=== PATIENT | male | born 1980 | race Caucasian/White ===

== ENCOUNTER 2017-10-17 15:00 | Outpatient (RCR) | payer BC, SELFPAY | END 2017-10-17 15:01 | disposition home or self-care (01) | LOC: OT 15:00 | PROVIDERS: Family Provider Family Medicine; Visit Provider Plastic Surgery | DX: S69.82XA Other specified injuries of left wrist, hand and finger(s), initial encounter (principal) | CPT/HCPCS: 97110; 97140; 97163; 97165 ==

== ENCOUNTER 2017-12-05 15:30 | Outpatient (RCR) | payer BC, SELFPAY | END 2017-12-05 15:31 | disposition home or self-care (01) | LOC: OT 15:30 | PROVIDERS: Family Provider Family Medicine; Visit Provider Plastic Surgery | DX: S69.80XA Other specified injuries of unspecified wrist, hand and finger(s), initial encounter (principal) | CPT/HCPCS: 97110; 97140; 97166 ==

== ENCOUNTER 2018-02-19 13:43 | Outpatient (RCR) | payer BC, SELFPAY | END 2018-02-19 13:44 | disposition home or self-care (01) | LOC: OT 13:43 | PROVIDERS: Family Provider Family Medicine; PCP Family Medicine; Visit Provider Plastic Surgery | DX: S69.80XA Other specified injuries of unspecified wrist, hand and finger(s), initial encounter (principal) | CPT/HCPCS: 97140; 97165; 97530 ==

== ENCOUNTER → 2018-08-10 12:48 | Outpatient (CLI) | payer BC, SELFPAY ==
--- NOTE | 2018-08-10 | CA_ITS ---
PROCEDURE: 2-D M-mode and color Doppler study INDICATIONS FOR THE TEST: Chest pain COPD Heart Murmur Tobacco Smoking Palpitations Fatigue+ Syncope Edema Hypertension Diabetes Mellitus Rheumatic Fever SOB+HALL Obesity+Hyperlipidemia Family History HD Additional History PATIENT INFORMATION HEIGHT: 71 WEIGHT:310 GENDER: Male B/P:110/65 2-D/M-MODE INTERPRETATION: 2-D MEASUREMENTS OBSERVED VALUES IN CMS Right Ventricular Dimension (RVDd) 1.9 Interventricular Septum (Thickness)(IVsd) 1.2 Left Ventricular Internal Dimensions(LVIDd) 4.7 Left Ventricular Posterior Wall (Thickness)(LVPWd) 1.0 Aortic Root 2.7 Aortic Cusp Separation 2.1 Left Atrial Dimensions (LAD) 5.0 2D 1. Left atrium is mildly enlarged, left ventricle is normal size, mild concentric left ventricular hypertrophy, visually estimated ejection fraction 55% with no regional wall motion abnormality. 2. The right atrium and right ventricle are normal size and contractility. 3. The aortic valve, mitral and tricuspid valve are grossly normal. 4. The pulmonic valve is poorly visualized. 6. No significant pericardial effusion noted. DOPPLER INTERROGATION: Doppler interrogation of the aortic, mitral and tricuspid valvular presence of mild mitral and tricuspid regurgitation, tricuspid regurgitation jet velocity is inadequate for calculation of the right ventricular systolic pressure, diastolic parameters are within normal range. CONCLUSION: 1. Mildly enlarged left atrium, normal left ventricular size, mild concentric left ventricular hypertrophy, visually estimated ejection fraction 55% with no regional wall motion abnormality, diastolic parameters are within normal range. 2. Mild mitral and tricuspid regurgitation 3. No significant pericardial effusion noted.
== END ==
PROVIDERS: PCP Family Medicine; Visit Provider Nurse Practitioner
DX: R06.02 Shortness of breath (principal); R53.83 Other fatigue; Z13.6 Encounter for screening for cardiovascular disorders
CPT/HCPCS: 93017; 93306

== ENCOUNTER → 2018-10-02 12:47 | Outpatient (CLI) | payer BC, SELFPAY ==
--- NOTE | 2018-10-02 12:59 | XR_ITS ---
XR knee LT 4V HISTORY: ITS.REASON: Lt knee pain. Weightbearing views ORDERING PHYSICIAN: Billy Norris MD PATIENT AGE: 38 years COMPARISON: None FINDINGS: No fracture or dislocation. No lytic or blastic change. Normal mineralization. Mild osteoarthritic changes are present in both the medial lateral compartment. The patellofemoral joint has an unremarkable appearance. There is a small suprapatellar effusion. IMPRESSION: Mild osteoarthritis with suprapatellar effusion
== END ==
PROVIDERS: PCP Family Medicine; Visit Provider Orthopaedic Surgery
DX: M25.562 Pain in left knee (principal)
CPT/HCPCS: 73564

== ENCOUNTER → 2018-10-08 07:50 | Outpatient (CLI) | payer BC, SELFPAY ==
--- NOTE | 2018-10-08 07:52 | MR_ITS ---
MR knee LT wo con Ordering Physician: Billy Norris MD Patient Age: 38 years: Male HISTORY: ITS.REASON: evaluate for knee pain Left knee pain. No trauma. Lateral side knee pain which is gotten worse over the past month. Some instability at the knee pain with bending and extending knee. TECHNIQUE: Multiplanar multisequence imaging 1. 5:00 PM are COMPARISON :Plain films of the left knee from 10/02/2018 FINDINGS Joint effusion most evident at suprapatellar bursa Patellofemoral joint.: The cartilage is overall fairly well maintained at posterior patella, but there are some subtle signal changes of the cartilage suggesting some mild chondromalacia or mild degenerative changes of the cartilage mid posterior patella, where it articulates with the femoral trochlear groove, as seen on axial image 8 & corresponding sagittal image 14. Overall normal patellofemoral relationships. Lateral patellofemoral articulation dominates with shallow medial aspect of the femoral trochlear groove. Medial Compartment.:. The medial meniscus appears intact. The cartilage at the medial compartment overall fairly well-maintained intact-only question some questionable scant subtle osteochondral signal variability overlying the posterior aspect of medial femoral condyle. Scant marginal osteophytes anteriorly at medial femoral condyle. Medial joint space well maintained. Lateral Compartment. The lateral meniscus overall appears intact with no definitive meniscal tear.. Note small osteochondral irregularity at Central weightbearing surface of lateral lateral femoral condyle, measuring less than 4 mm diameter & just over 3 mm depth (coronal image 18, sagittal 19, axial 17). There is slight increased signal within the overlying cartilage just at this focus associated... This reflects a small osteochondral defect. Also Slight increased joint fluid seen here posteriorly aspect the lateral meniscus well.. Early marginal osteophytes at the knee are most notable at evident about the margin of the lateral compartment. Early degenerative changes may reflect a scant chondral thinning and early chondral irregularities at lateral compartment Ligaments/Tendons: ACL thin somewhat difficult to visualize but I believe is intact. PCL appears normal The MCL is intact. The lateral collateral ligament intact. . patellar tendon intact. The quadriceps tendon intact. --------- IMPRESSION: 1. Moderate joint effusion most evident suprapatella bursa. 2.. Early degenerative left knee, most notable lateral compartment followed by the patellofemoral joint: 3. Lateral compartment., ... Early marginal osteophytes, most evident at lateral compartment ...*Small focal osteochondral defect/ irregularity at mid weightbearing surface lateral femoral condyle. 3. Patellofemoral joint Suggestion of some subtle chondral thinning and chondral signal irregularities mid patellofemoral joint. . 4.... ACL thin difficult to visualize but I believe is most likely is intact.
== END ==
PROVIDERS: PCP Family Medicine; Visit Provider Orthopaedic Surgery
DX: M25.562 Pain in left knee (principal); G89.29 Other chronic pain
CPT/HCPCS: 73721

== ENCOUNTER → 2020-03-03 17:22 | Outpatient (CLI) | payer BC, SELFPAY ==
[2020-03-03 22:57] LABS: Motility Quality Good Progression (Mod-Rapid); PH,Semen 8.5 (7.3-8.3); Semen Viscosity Watery (Normal); Sperm Motility 55 % (50-90); WBCs,Semen Negative
[2020-03-03 22:58] LABS: 3Hr Motility Quality Moderate Progression (Mod-Rapid); 3Hr Sperm Motility 40 % (50-60); Sperm Count 146 mil/mm3 (20-160); Sperm Morphology Normal (Normal)
== END ==
PROVIDERS: Visit Provider Urology
DX: N46.9 Male infertility, unspecified (principal)
CPT/HCPCS: 89320

== ENCOUNTER 2020-07-30 20:54 | Emergency (ER) | payer OTHER, BC, SELFPAY ==
[2020-07-30 20:55] VITALS: BP 139/93; PULSE 90; RESP 14; TEMP 36.7; O2SAT 98; BMI 45.8
--- NOTE | 2020-07-30 21:24 | HMH.EDUTC ---
[facility] [place] Clinical Impression: Laceration of right index finger Qualifiers: Encounter type: initial encounter Damage to nail status: without damage Foreign body presence: without foreign body Qualified Code(s): S61.210A - Laceration without foreign body of right index finger without damage to nail, initial encounter Disposition: Home, Self-Care Condition on Discharge: Good Instructions: How to Care for a Laceration After Repair, DI for Laceration Repair Additional Instructions: Keep the wound clean and dry. Keep a dressing on it if you are going to be getting it dirty. Watch the for signs of infection, such as redness, swelling, drainage, fever. etc. Take tylenol or ibuprofen for pain. Follow up with your regular doctor. Return in 10 days to have the sutures removed. GO TO THE ER FOR ANY WORSENING SYMPTOMS OR CONCERNS. Prescriptions: cephALEXin [cephALEXin 500mg capsule*] 500 mg PO Q6H 7 Days #28 cap Transmission Status: Pending to [facility] Referrals: Caprice Chacon MD [Primary Care Provider] - Time of Disposition: 21:28 Medical Decision Making - Medical Records Medical records reviewed: No: I reviewed the patient's medical records. - Aries Inquiry Pt receiving controlled substance: No Vital Signs: 07/30/20 20:55 Temperature 98.1 F Temperature Source Oral Pulse Rate [Right] 90 Respiratory Rate 14 Blood Pressure [Right Arm] 139/93 H Blood Pressure Mean [Right Arm] 108 02 Sat by Pulse Oximetry 98 [facility] [place] - General Stated complaint: AER laceration to right index finger Time Seen by Provider: 07/30/20 20:55 Description of Symptoms (Recalled from Triage Doc. 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 The rack cut the top of his right index finger. He had trouble getting it to stop bleeding before arrival. - Related Data Previous Rx's Medication Instructions Recorded cephALEXin [cephALEXin 500mg 500 mg PO Q6H 7 Days #28 cap 07/30/20 capsule*] Allergies Allergy/AdvReac Type Severity Reaction Status Date / Time No Known Allergies Allergy Verified 10/23/18 15:27 - Worker's Comp Is this a Worker's Comp case?: No [facility] History - Hepatitis A Screen Drug use history?: No High risk sexual behaviors?: No History of sexually transmitted infection?: No Currently employed?: No Childcare worker?: No Do you have indoor plumbing?: Yes Do you have electricity?: Yes Attestation statement:: This patient has been screened for Hepatitis A risk factors. I have reviewed the patient's past medical history: Yes Medical History: Reports:: Migraine Denies:: Cancer, Diabetes Mellitus Type 1, Diabetes Mellitus Type 2, MRSA Laterality Cases: Bilateral: Other Other Surgeries: Yes: No Previous Surgery Amputation: No - Social History Smoking Status: Never smoker Alcohol Intake: never Occupational Status: employed Family Hx:: Hypertension ROS Obtained: Yes All systems reviewed & no additional complaints - Constitutional Constitutional: Denies chills, Denies fever(s) - Integumentary/Breasts Skin/Breast: Reports as per HPI - Neurologic Neurologic: Denies tingling/numbness/burning sensations Physical Exam - General General appearance: alert, in no apparent distress - Head Head exam: atraumatic, normocephalic, normal inspection - Eye Eye exam: Present: normal appearance, PERRL, EOMI - ENT ENT exam: Present: normal exam, normal oropharynx, mucous membranes moist, TM's normal bilaterally, normal external ear exam - Neck Neck exam: Present: gavni
[2020-07-30 21:30] VITALS: BP 139/93; PULSE 90; RESP 14; TEMP 36.7; O2SAT 98
== END 2020-07-30 21:31 | disposition home or self-care (01) ==
PROVIDERS: Emergency Provider Nurse Practitioner Family; PCP Family Medicine
DX: S61.210A Laceration without foreign body of right index finger without damage to nail, initial encounter (principal); W26.8XXA Contact with other sharp object(s), not elsewhere classified, initial encounter; Y92.63 Factory as the place of occurrence of the external cause; Y99.0 Civilian activity done for income or pay
CPT/HCPCS: 12001; 99202; G0463

== ENCOUNTER 2020-09-20 15:10 | Emergency (ER) | payer BC, SELFPAY ==
[2020-09-20 15:31] VITALS: BP 125/91; PULSE 78; RESP 14; TEMP 36.4; O2SAT 96; BMI 41.8
--- NOTE | 2020-09-20 15:42 | HMH.EDUTC ---
[facility] [place] Disposition Clinical Impression: Viral syndrome, Exposure to COVID-19 virus Disposition: Home, Self-Care Condition on Discharge: Good Instructions: DI for COVID-19 (Suspected or Confirmed ), Preventing the Spread of Coronavirus Discharge Instructions Additional Instructions: Drink plenty of fluids. Take tylenol for pain or fever. Return if you begin to have difficulty breathing. Follow up with your regular doctor. GO TO THE ER FOR ANY WORSENING SYMPTOMS Prescriptions: Ondansetron [Zofran 4mg ODT] 4 mg PO Q8HP PRN #12 tab.rapdis PRN Reason: Nausea Transmission Status: Received by [facility] Benzonatate [Tessalon Perle 100mg Cap] 100 mg PO TIDP PRN #30 cap PRN Reason: Cough Transmission Status: Received by [facility] Azithromycin [Z-Skip 250mg Tab*] 250 mg PO UD DOSE PK #6 tab Transmission Status: Received by [facility] Referrals: Caprice Chacon MD [Primary Care Provider] - Forms: Work/School Release Time of Disposition: 15:45 Medical Decision Making - Medical Records Medical records reviewed: No: I reviewed the patient's medical records. - Aries Inquiry Pt receiving controlled substance: No Vital Signs: 09/20/20 15:31 09/20/20 15:54 Temperature 97.6 F 97 F L Temperature Source Tympanic Pulse Rate 77 Pulse Rate [Right] 78 Respiratory Rate 14 14 Blood Pressure 122/93 H Blood Pressure [Right Arm] 125/91 H Blood Pressure Mean [Right Arm] 102 Blood Pressure Source [Right Arm] Automatic Cuff Blood Pressure Position [Right Arm] Sitting 02 Sat by Pulse Oximetry 96 Oxygen Delivery Method Room Air - Lab Data Lab Results 09/20/20 15:33: Influenza Type A Ag Negative, Influenza Type B Ag Negative Orders (Tests/Meds): ORDERS Category Date Time Status Covid-19 Nasal PCR ([place]) Routine Lab 09/20/20 15:30 Received [facility] [place] HPI - General Stated complaint: vomiting, diarrhea, fever, headache, body aches Time Seen by Provider: 09/20/20 15:42 Mode of Arrival: Ambulatory Source of Information: Patient Limitations: No Limitations Description of Symptoms (Recalled from Triage Doc. by RN): N/V/D, body aches, and [place] HEENT Symptoms (Recalled from RN notes): Yes ([place]) Resp Symptoms (Recalled from RN notes): No Skin Symptoms (Recalled from RN notes): No MS Symptoms (Recalled from RN notes): No Functional Status (Recalled from RN notes): na - History of Present Illness Provider Complaint: He states that for the past 2 days he has had nausea, vomiting, diarrhea, body aches, fever, sore throat and a cough. - Related Data Previous Rx's Medication Instructions Recorded cephALEXin [cephALEXin 500mg 500 mg PO Q6H 7 Days #28 cap 07/30/20 capsule*] Azithromycin [Z-Skip 250mg Tab*] 250 mg PO UD DOSE PK #6 tab 09/20/20 Benzonatate [Tessalon Perle 100mg 100 mg PO TIDP PRN #30 cap 09/20/20 Cap] Ondansetron [Zofran 4mg ODT] 4 mg PO Q8HP PRN #12 tab.rapdis 09/20/20 Allergies Allergy/AdvReac Type Severity Reaction Status Date / Time No Known Allergies Allergy Verified 09/20/20 15:36 - Worker's Comp Is this a Worker's Comp case?: No [place] History - Hepatitis A Screen Drug use history?: No High risk sexual behaviors?: No History of sexually transmitted infection?: No Currently employed?: No Childcare worker?: No Do you have indoor plumbing?: Yes Do you have electricity?: Yes Attestation statement:: This patient has been screened for Hepatitis A risk factors. I have reviewed the patient's past medical history: Yes Medical History: Reports:: Migraine Denies:: Cancer, Diabetes Mellitus Type 1, Diabetes Mellitus Type 2, MRSA Laterality Cases: Bilateral: Other Other Surgeries: Yes: No Previous Surgery Amputation: No - Social History Smoking Status: Never smoker Alcohol Intake: never Occupational Status: employed Family Hx:: Hypertension ROS Obtained: Yes All systems reviewed & no additional complaints - Constitutional C
[2020-09-20 15:45] LABS: UTC Influenza A Antigen Negative (Negative); UTC Influenza B Antigen Negative (Negative)
[2020-09-20 15:54] VITALS: BP 122/93; PULSE 77; RESP 14; TEMP 36.1
== END 2020-09-20 15:57 | disposition home or self-care (01) ==
PROVIDERS: Emergency Provider Nurse Practitioner Family; PCP Family Medicine
DX: Z20.822 Contact with and (suspected) exposure to COVID-19 (principal); B34.9 Viral infection, unspecified
CPT/HCPCS: 87804; 99202; G0463; U0003

== ENCOUNTER 2021-01-05 17:52 | Emergency (ER) | payer BC, SELFPAY ==
[2021-01-05 18:30] VITALS: BP 145/103; PULSE 71; RESP 20; TEMP 36.9; O2SAT 97; BMI 43.0
--- NOTE | 2021-01-05 18:54 | XR_ITS ---
PROCEDURE INFORMATION: Exam: XR Right Foot Exam date and time: 01/05/2021 6:54 PM Age: 40 years old Clinical indication: Right; Patient HX: Pain in heel x3 weeks TECHNIQUE: Imaging protocol: XR Right foot. Views: 1 or 2 views. Total images: 3 COMPARISON: No relevant prior studies available. FINDINGS: Bones/joints: No fractures. Slight hallux valgus and small medial bunion at the 1st MTP joint. Os tibialis externum incidentally noted. Moderate plantar calcaneal spurring and mild spurring at the Achilles tendon insertion on the calcaneus. Mild Adiel deformity. No gross joint effusion. Soft tissues: Normal. IMPRESSION: 1. Moderate plantar calcaneal spurring and mild Adiel deformity. 2. No fractures or gross bony stress injuries. 3. Mild hallux valgus and bunion formation at the 1st MTP joint.
--- NOTE | 2021-01-05 19:21 | HMH.EDUTC ---
[facility] [place] Impression: Right Achilles bursitis, Right foot pain Heel spur Qualifiers: Laterality: right Qualified Code(s): M77.31 - Calcaneal spur, right foot Disposition: Home, Self-Care Condition on Discharge: Good Instructions: DI for Bursitis, DI for Foot Pain Additional Instructions: Rest the extremity, apply ice for 15 minutes as tolerated three or four times per day, Wear the iron wrap for compression, Elevate the extremity as tolerated while you are resting. Follow up with Dr. Kwong (podiatry). I put in a referral but you need to call her office and schedule an appointment. Follow up with your regular doctor. GO TO THE ER FOR ANY WORSENING SYMPTOMS Rest your foot for the next few days. Keep it elevated as much time as possible. Prescriptions: methylPREDNISolone [Medrol] 4 mg PO DIRECTED 6 Days #21 tab.ds.pk Transmission Status: Received by [facility] Referrals: Caprice Chacon MD [Primary Care Provider] - Shannon Kwong DPM [Staff Physician] - Forms: Work/School Release Time of Disposition: 19:28 Medical Decision Making - Medical Records Medical records reviewed: No: I reviewed the patient's medical records. - Aries Inquiry Pt receiving controlled substance: No Vital Signs: 01/05/21 18:30 01/05/21 19:30 Temperature 98.4 F 98.4 F Temperature Source Oral Pulse Rate 71 Pulse Rate [Right Brachial] 71 Respiratory Rate 20 20 Blood Pressure 145/103 H Blood Pressure [Right Arm] 145/103 H Blood Pressure Mean [Right Arm] 117 Blood Pressure Source [Right Arm] Automatic Cuff Blood Pressure Position [Right Arm] Sitting 02 Sat by Pulse Oximetry 97 Oxygen Delivery Method Room Air - Radiology Data #1 Image(s): Foot/Toes Image Reviewed: Yes I reviewed the patient's radiology image, Yes I have reviewed radiologist's interpretation Preliminary Findings: Abnormal, No Fracture Seen PROCEDURE INFORMATION: Exam: XR Right Foot Exam date and time: 01/05/2021 6:54 PM Age: 40 years old Clinical indication: Right; Patient HX: Pain in heel x3 weeks TECHNIQUE: Imaging protocol: XR Right foot. Views: 1 or 2 views. Total images: 3 COMPARISON: No relevant prior studies available. FINDINGS: Bones/joints: No fractures. Slight hallux valgus and small medial bunion at the 1st MTP joint. Os tibialis externum incidentally noted. Moderate plantar calcaneal spurring and mild spurring at the Achilles tendon insertion on the calcaneus. Mild Adiel deformity. No gross joint effusion. Soft tissues: Normal. IMPRESSION: 1. Moderate plantar calcaneal spurring and mild Adiel deformity. 2. No fractures or gross bony stress injuries. 3. Mild hallux valgus and bunion formation at the 1st MTP joint. [facility] [place] - General Stated complaint: Right heel pain Time Seen by Provider: 01/05/21 19:21 Mode of Arrival: Ambulatory Source of Information: Patient Limitations: No Limitations Description of Symptoms (Recalled from Triage Doc. by RN): PATIENT C/O RIGHT HEEL PAIN X 3 MONTHS HEENT Symptoms (Recalled from RN notes): No Resp Symptoms (Recalled from RN notes): No Skin Symptoms (Recalled from RN notes): No MS Symptoms (Recalled from RN notes): Yes Functional Status (Recalled from RN notes): WNL - History of Present Illness Provider Complaint: He c/o right foot pain. The pain is located on the lower part of the back of his heel. He denies any injury. - Related Data Previous Rx's Medication Instructions Recorded methylPREDNISolone [Medrol] 4 mg PO DIRECTED 6 Days #21 01/05/21 tab.ds.pk Allergies Allergy/AdvReac Type Severity Reaction Status Date / Time No Known Allergies Allergy Verified 09/20/20 15:36 - Worker's Comp Is this a Worker's Comp case?: No [facility] History - Hepatitis A Screen Drug use history?: No High risk sexual behaviors?: No History of sexually
[2021-01-05 19:30] VITALS: BP 145/103; PULSE 71; RESP 20; TEMP 36.9; O2SAT 97
== END 2021-01-05 19:39 | disposition home or self-care (01) ==
PROVIDERS: Emergency Provider Nurse Practitioner Family; PCP Family Medicine
DX: M77.31 Calcaneal spur, right foot (principal); M76.61 Achilles tendinitis, right leg
CPT/HCPCS: 73620; 99202; G0463

== ENCOUNTER 2021-05-05 12:53 | Emergency (ER) | payer BC, SELFPAY ==
[2021-05-05 14:10] VITALS: BP 138/90; PULSE 90; RESP 20; TEMP 36.8; O2SAT 96; BMI 40.8
--- NOTE | 2021-05-05 14:31 | HMH.EDUTC ---
[facility] [place] Disposition Clinical Impression: Exposure to COVID-19 virus Sinusitis Qualifiers: Sinusitis location: unspecified location Chronicity: acute Recurrence: non-recurrent Qualified Code(s): J01.90 - Acute sinusitis, unspecified Disposition: Home, Self-Care Condition on Discharge: Good Instructions: DI for Sinusitis, Sinusitis, Preventing the Spread of Coronavirus Discharge Instructions Additional Instructions: Drink plenty of fluids. Take tylenol or ibuprofen for pain or fever. Take the medications as directed. Follow up with your regular doctor. GO TO THE ER FOR ANY WORSENING SYMPTOMS Quarantine until you know the results of your covid-19 test. If it is positive, the health department should call you and give you further instructions about your length of Quarantine and other things. Notify your school or workplace of your results and follow their instructions regarding return to work/school. Prescriptions: methylPREDNISolone [Medrol] 4 mg PO DIRECTED 6 Days #21 packet Transmission Status: Pending to [facility] Benzonatate [Tessalon Perle 100mg Cap] 100 mg PO TIDP PRN #30 cap PRN Reason: Cough Transmission Status: Pending to [facility] Azithromycin [Z-Skip 250mg Tab*] 250 mg PO UD DOSE PK #6 tab Transmission Status: Pending to [facility] Referrals: Caprice Chacon MD [Primary Care Provider] - Forms: Work/School Release Time of Disposition: 14:41 Medical Decision Making - Medical Records Medical records reviewed: No: I reviewed the patient's medical records. - Aries Inquiry Pt receiving controlled substance: No Vital Signs: 05/05/21 14:10 Temperature 98.3 F Temperature Source Oral Pulse Rate [Right Brachial] 90 Respiratory Rate 20 Blood Pressure [Right Arm] 138/90 Blood Pressure Mean [Right Arm] 106 Blood Pressure Source [Right Arm] Automatic Cuff Blood Pressure Position [Right Arm] Sitting 02 Sat by Pulse Oximetry 96 Oxygen Delivery Method Room Air Orders (Tests/Meds): ORDERS Category Date Time Status Covid-19 Nasal PCR ([facility]) Routine Lab 05/05/21 14:08 Ordered [facility] [place] HPI - General Stated complaint: sore throat, body aches, cough, congestion Time Seen by Provider: 05/05/21 14:32 - History of Present Illness Provider Complaint: He states that he has been having sinus congestion and head aches over the past week. He thinks that he has a sinus infection. He has not been vaccinated against covid-19. - Related Data Previous Rx's Medication Instructions Recorded urea 39 % topical cream 1 applic TOPICAL BID 90 Days #227 g 01/19/21 diclofenac sodium 1 % topical gel 4 g TOPICAL QID PRN 30 Days #100 g 03/02/21 diclofenac sodium 75 mg 75 mg PO BID PRN 30 Days #60 tab 03/02/21 tablet,delayed release Azithromycin [Z-Skip 250mg Tab*] 250 mg PO UD DOSE PK #6 tab 05/05/21 Benzonatate [Tessalon Perle 100mg 100 mg PO TIDP PRN #30 cap 05/05/21 Cap] methylPREDNISolone [Medrol] 4 mg PO DIRECTED 6 Days #21 05/05/21 packet Allergies Allergy/AdvReac Type Severity Reaction Status Date / Time No Known Allergies Allergy Verified 03/02/21 08:16 [facility] History - Hepatitis A Screen Attestation statement:: This patient has been screened for Hepatitis A risk factors. 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 ) Fractures: Yes Comment: Left Ankle ORIF - Social History Smoking Status: Never smoker Alcohol Intake: never Occupational Status: employed Family Hx:: Hypertension ROS Obtained: Yes All systems reviewed & no additional complaints - Constitutional Constitutional: Reports as per HPI - Eyes Eyes: Denies eye discharge - ENT Ears, Nose, Mouth, and Throat: Reports as per HPI -
[2021-05-05 14:47] VITALS: BP 138/90; PULSE 90; RESP 20; TEMP 36.8; O2SAT 96
== END 2021-05-05 14:53 | disposition home or self-care (01) ==
PROVIDERS: Emergency Provider Nurse Practitioner Family; PCP Family Medicine
DX: J01.90 Acute sinusitis, unspecified (principal); Z20.822 Contact with and (suspected) exposure to COVID-19; G43.709 Chronic migraine without aura, not intractable, without status migrainosus
CPT/HCPCS: 99202; C9803; G0463; U0003; U0005

== ENCOUNTER 2021-06-21 13:10 | Emergency (ER) | payer BC, SELFPAY ==
[2021-06-21 14:41] VITALS: BP 143/103; PULSE 81; RESP 16; TEMP 36.6; O2SAT 97; BMI 39.7
--- NOTE | 2021-06-21 15:08 | HMH.EDUTC ---
[facility] [place] Disposition Clinical Impression: Psoriasis Disposition: Home, Self-Care Condition on Discharge: Good Instructions: Psoriasis, DI for Psoriasis, Betamethasone Topical Additional Instructions: Keep your skin as soft and moist as possible with a good emollient or lotion that doesn't have any strong scents in it. Don't start the oral steroids until tomorrow. Don't put the topical steroids (betamethasone dip) on your face or your groin. Betamethasone is a very strong topical steroid. It is too strong for daily use unless you are in a bad flare up like you are now. health education aide use of it can thin your skin and cause other problems, but it is the right one to use during a flare up like you're having now. Ideally, you would use it until your flare up is calmed down, then start using an over the counter steroid cream to keep it calmed down. Then, in the future when you notice your symptoms are flaring back up you can switch back to the betamethasone dip to calm it back down. Wash your hands after you have applied the betamethasone dip ointment. Or, you could wear gloves to put it on. intermediate contact with your hands will make the skin on your hands fragile and cause them to be easily injured. Follow up with your regular doctor. GO TO THE ER FOR ANY WORSENING SYMPTOMS OR CONCERNS Prescriptions: Betamethasone Dipropionate 1 applicatio TP BID 10 Days #45 gm Transmission Status: Received by [facility] dexAMETHasone [Taperdex] 1.5 mg PO DIRECTED 12 Days #1 packet Transmission Status: Received by [facility] Referrals: Caprice Chacon MD [Primary Care Provider] - Forms: Work/School Release Time of Disposition: 15:30 Medical Decision Making - Medical Records Medical records reviewed: No: I reviewed the patient's medical records. - Aries Inquiry Pt receiving controlled substance: No Vital Signs: 06/21/21 14:41 06/21/21 15:42 Temperature 97.8 F 97.8 F Temperature Source Oral Pulse Rate 81 Pulse Rate [Left] 81 Respiratory Rate 16 16 Blood Pressure 143/103 H Blood Pressure [Right Arm] 143/103 H Blood Pressure Mean [Right Arm] 116 02 Sat by Pulse Oximetry 97 Orders (Tests/Meds): ED MEDICATIONS Discontinued Medications Generic Name Dose Route Start Last Admin Trade Name Freq PRN Reason Stop Dose Admin Dexamethasone Sodium Phosphate 8 mg 06/21/21 15:16 06/21/21 15:34 Dexamethasone 4mg/Ml 1ml Vial IM 06/21/21 15:17 8 mg ONCE ONE Administration [facility] HPI - General Stated complaint: flair up sorasis Time Seen by Provider: 06/21/21 15:00 Mode of Arrival: Ambulatory Source of Information: Patient Limitations: No Limitations Description of Symptoms (Recalled from Triage Doc. by RN): pt states his psoriasis is flared up on his feet and arms. HEENT Symptoms (Recalled from RN notes): No Resp Symptoms (Recalled from RN notes): No Skin Symptoms (Recalled from RN notes): Yes MS Symptoms (Recalled from RN notes): No Functional Status (Recalled from RN notes): wnl - History of Present Illness Provider Complaint: He has a history of psoriasis that usualy flares up in the winter and just about goes away in the summer. His psoriasis started to flare up about 2 weeks ago and it has got to be very painful when he walks. The most severe areas are located on the backs of both his feet in the achiles tendon area. He walks a lot at work and he states that makes the psoriasis on his feet even worse. He also has it on his bilateral forearms. He does not have any on his face, scalp, neck or trunk. In the past he has treated it with steroid creams that were prescribed by his pcp, but he is out of those and he has no refills lest. He has been very busy and unable to get into see his pcp this time. He is not diabetic. He denies any fever or chills. He has saw 3 different field attendant in the past for this and no one has did anymore for him that to prescribed steroids and steroid creams whe
[2021-06-21 15:42] VITALS: BP 143/103; PULSE 81; RESP 16; TEMP 36.6
== END 2021-06-21 15:43 | disposition home or self-care (01) ==
PROVIDERS: Emergency Provider Nurse Practitioner Family; PCP Family Medicine
DX: L40.9 Psoriasis, unspecified (principal); G43.709 Chronic migraine without aura, not intractable, without status migrainosus
CPT/HCPCS: 96372; 99202; G0463

== ENCOUNTER 2021-08-03 09:51 | Emergency (ER) | payer BC, SELFPAY ==
[2021-08-03 10:00] VITALS: BP 128/77; PULSE 106; RESP 16; TEMP 37.4; O2SAT 99; BMI 47.1
--- NOTE | 2021-08-03 10:26 | HMH.EDUTC ---
[facility] [place] Clinical Impression: Viral syndrome, Exposure to COVID-19 virus Pharyngitis Qualifiers: Pharyngitis/tonsillitis etiology: unspecified etiology Qualified Code(s): J02.9 - Acute pharyngitis, unspecified Disposition: Home, Self-Care Condition on Discharge: Good Instructions: DI for Viral Syndrome, DI for COVID-19 (Suspected or Confirmed ), Preventing the Spread of Coronavirus Discharge Instructions Additional Instructions: Drink plenty of fluids. Take tylenol or ibuprofen for pain or fever. Take the medications as directed. Follow up with your regular doctor. GO TO THE ER FOR ANY WORSENING SYMPTOMS Quarantine until you know the results of your covid-19 test. Notify your school or workplace of your results and follow their instructions regarding return to work/school. The cough medication (promethazine dm) will make you drowsy, so don't drive or operate heavy machinery after taking it. Prescriptions: Promethazine/Dextromethorphan [Promethazine-Dm Syrup] 5 ml PO Q6HP PRN #240 ml PRN Reason: Cough Transmission Status: Received by [facility] methylPREDNISolone [Medrol] 4 mg PO DIRECTED 6 Days #21 packet Transmission Status: Received by [facility] Azithromycin [Z-Skip 250mg Tab*] 250 mg PO UD DOSE PK #6 tab Transmission Status: Received by [facility] Referrals: Caprice Chacon MD [Primary Care Provider] - Forms: Work/School Release Time of Disposition: 11:03 Medical Decision Making - Medical Records Medical records reviewed: No: I reviewed the patient's medical records. - Aries Inquiry Pt receiving controlled substance: No Vital Signs: 08/03/21 10:00 08/03/21 11:06 Temperature 99.4 F 99.4 F Temperature Source Oral Pulse Rate 106 H Pulse Rate [Right Brachial] 106 H Respiratory Rate 16 16 Blood Pressure 128/77 Blood Pressure [Right Arm] 128/77 Blood Pressure Mean [Right Arm] 94 Blood Pressure Source [Right Arm] Automatic Cuff Blood Pressure Position [Right Arm] Sitting 02 Sat by Pulse Oximetry 99 Oxygen Delivery Method Room Air - Lab Data Lab results reviewed: Yes: I reviewed the patient's lab results. Lab Results 08/03/21 10:15: Influenza Type A Ag Negative, Influenza Type B Ag Negative 08/03/21 11:01: Group A Strep Rapid Negative Orders (Tests/Meds): ED MEDICATIONS Discontinued Medications Generic Name Dose Route Start Last Admin Trade Name Kirk PRN Reason Stop Dose Admin Ketorolac Tromethamine 60 mg 08/03/21 11:10 08/03/21 11:14 Ketorolac 60mg/2ml Vial IM 08/03/21 11:11 60 mg ONCE ONE Administration Methylprednisolone Sodium Succinate 125 mg 08/03/21 11:10 08/03/21 11:14 Methylprednisolone Sod Succ 125mg Vial IM 08/03/21 11:11 125 mg ONCE ONE Administration ORDERS Category Date Time Status Covid-19 Nasal PCR ([facility]) Routine Lab 08/03/21 10:15 Received Strep Screen Confirmation Stat Micro 08/03/21 11:01 Received [facility] HPI - General Stated complaint: covid symptoms/exposure Time Seen by Provider: 08/03/21 10:26 - History of Present Illness Provider Complaint: He states that since yesterday he has had fever, chills, body aches, a dry cough, sore throat and he has felt very bad. He has been exposed to covid-19 thru his work. HE has been fully vaccinated. - Related Data Previous Rx's Medication Instructions Recorded Azithromycin [Z-Skip 250mg Tab*] 250 mg PO UD DOSE PK #6 tab 08/03/21 Promethazine/Dextromethorphan 5 ml PO Q6HP PRN #240 ml 08/03/21 [Promethazine-Dm Syrup] methylPREDNISolone [Medrol] 4 mg PO DIRECTED 6 Days #21 08/03/21 packet Allergies Allergy/AdvReac Type Severity Reaction Status Date / Time No Known Allergies Allergy Verified 05/06/21 08:12 [facility] History - Hepatitis A Screen Attestation statement:: This patient has been screened for Hepatitis A risk factors. I have reviewed the patient's past medical history: Yes Medical Hi
[2021-08-03 10:47] LABS: UTC Influenza A Antigen Negative (Negative); UTC Influenza B Antigen Negative (Negative)
[2021-08-03 11:06] VITALS: BP 128/77; PULSE 106; RESP 16; TEMP 37.4; O2SAT 99
[2021-08-03 11:28] LABS: Strep Scrn Group A (Rapid) Negative (Negative)
== END 2021-08-03 11:28 | disposition home or self-care (01) ==
PROVIDERS: Emergency Provider Nurse Practitioner Family; PCP Family Medicine
DX: U07.1 COVID-19 (principal); J02.9 Acute pharyngitis, unspecified; G43.709 Chronic migraine without aura, not intractable, without status migrainosus
CPT/HCPCS: 87430; 87804; 96372; 99202; C9803; G0463; U0003; U0005

== ENCOUNTER 2021-10-31 09:07 | Emergency (ER) | payer BC, SELFPAY ==
[2021-10-31 09:20] VITALS: BP 146/110; PULSE 78; RESP 20; TEMP 36.5; O2SAT 95; BMI 41.8
--- NOTE | 2021-10-31 09:51 | HMH.EDUTC ---
[facility] [place] Clinical Impression: Contact dermatitis Qualifiers: Contact dermatitis type: allergic Contact dermatitis trigger: unspecified trigger Qualified Code(s): L23.9 - Allergic contact dermatitis, unspecified cause Disposition: Home, Self-Care Condition on Discharge: Good Instructions: Contact Dermatitis, DI for Contact Dermatitis Additional Instructions: Try to identify and avoid contact with the offending substance. Don't start the oral steroids until tomorrow. Don't put the topical steroids (triamcinolone) on your face or your groin. Follow up with your regular doctor. GO TO THE ER FOR ANY WORSENING SYMPTOMS OR CONCERNS The vistaril will make you drowsy, so don't drive or operate heavy machinery afterwards. Prescriptions: methylPREDNISolone [Medrol] 4 mg PO DIRECTED 6 Days #21 packet Transmission Status: Received by [facility] Triamcinolone Acetonide 1 applicatio TP TIDP PRN 7 Days #1 gm PRN Reason: Itching Transmission Status: Received by [facility] hydrOXYzine pamoate [Vistaril 25mg capsule] 25 mg PO Q6H PRN #30 cap PRN Reason: Itching Transmission Status: Received by [facility] Referrals: Caprice Chacon MD [Primary Care Provider] - Time of Disposition: 10:19 Medical Decision Making - Medical Records Medical records reviewed: No: I reviewed the patient's medical records. - Aries Inquiry Pt receiving controlled substance: No Vital Signs: 10/31/21 09:20 10/31/21 10:44 Temperature 97.7 F 97.7 F Temperature Source Oral Pulse Rate 78 Pulse Rate [Left] 78 Respiratory Rate 20 20 Blood Pressure 146/110 H Blood Pressure [Right Arm] 146/110 H Blood Pressure Mean [Right Arm] 122 02 Sat by Pulse Oximetry 95 Orders (Tests/Meds): ED MEDICATIONS Discontinued Medications Generic Name Dose Route Start Last Admin Trade Name Freq PRN Reason Stop Dose Admin Methylprednisolone Sodium Succinate 125 mg 10/31/21 09:58 10/31/21 10:01 Methylprednisolone Sod Succ 125mg Vial IM 10/31/21 09:59 125 mg ONCE ONE Administration [facility] [place] HPI - General Stated complaint: rash Time Seen by Provider: 10/31/21 09:52 Mode of Arrival: Ambulatory Source of Information: Patient Limitations: No Limitations Description of Symptoms (Recalled from Triage Doc. by RN): pt states he has a rash all over his body. pt states it cooper and itches. ongoing x2 wks after a fishing trip. HEENT Symptoms (Recalled from RN notes): No Resp Symptoms (Recalled from RN notes): No Skin Symptoms (Recalled from RN notes): Yes MS Symptoms (Recalled from RN notes): No Functional Status (Recalled from RN notes): wnl - History of Present Illness Provider Complaint: He has had he has had a itchy rash for the past 7 days. He has been taking benedryl at home with not much improvement. He denies any known contact with anything that he may be allergic to. - Related Data Previous Rx's Medication Instructions Recorded Azithromycin [Z-Skip 250mg Tab*] 250 mg PO UD DOSE PK #6 tab 08/03/21 Promethazine/Dextromethorphan 5 ml PO Q6HP PRN #240 ml 08/03/21 [Promethazine-Dm Syrup] methylPREDNISolone [Medrol] 4 mg PO DIRECTED 6 Days #21 08/03/21 packet Triamcinolone Acetonide 1 applicatio TP TIDP PRN 7 Days #1 10/31/21 gm hydrOXYzine pamoate [Vistaril 25mg 25 mg PO Q6H PRN #30 cap 10/31/21 capsule] methylPREDNISolone [Medrol] 4 mg PO DIRECTED 6 Days #21 10/31/21 packet Allergies Allergy/AdvReac Type Severity Reaction Status Date / Time No Known Allergies Allergy Verified 05/06/21 08:12 - Worker's Comp Is this a Worker's Comp case?: No [facility] History - Hepatitis A Screen Drug use history?: No High risk sexual behaviors?: No History of sexually transmitted infection?: No Currently employed?: No Childcare worker?: No Do you have indoor plumbing?: Yes Do you have electricity?: Yes Attestation statement:: This patient has been screened for Hepatitis A ri
[2021-10-31 10:44] VITALS: BP 146/110; PULSE 78; RESP 20; TEMP 36.5
== END 2021-10-31 10:44 | disposition home or self-care (01) ==
PROVIDERS: Emergency Provider Nurse Practitioner Family; PCP Family Medicine
DX: L23.9 Allergic contact dermatitis, unspecified cause (principal); G43.709 Chronic migraine without aura, not intractable, without status migrainosus
CPT/HCPCS: 96372; 99212; G0463

== ENCOUNTER → 2021-11-12 13:02 | Outpatient (CLI) | payer BC, SELFPAY ==
--- NOTE | 2021-11-12 13:02 | MR_ITS ---
FINAL REPORT CLINICAL HISTORY: . RIGHT ANKLE/ CALCANEOUS PAIN X'S 1 YEAR. NKI. PAIN IN POSTERIOR SIDE OF ANKLE. FINDINGS: Multiplanar and multisequence imaging of the right ankle was obtained without intravenous contrast. BONES/JOINT: There is bone marrow edema in the posterior calcaneus at the insertion of the Achilles tendon, likely reactive. Remaining bone marrow signal intensity is normal. There is no edema, contusion or pathologic marrow replacement. The cartilage of the talar dome is intact. There is no evidence of osteochondritis dissecans of the talar dome. LIGAMENTS: The anterior talofibular ligament, posterior talofibular ligament and calcaneofibular ligament are intact. The tibiofibular ligaments are intact. The deltoid and spring ligaments are within normal limits. TENDONS: There is thickening of the distal Achilles tendon with a very small insertional tear. No full-thickness tear is identified. The medial tendons are within normal limits. The peroneus longus and brevis tendons are within normal limits. There is no evidence of peroneus brevis split tear. The extensor tendons are within normal limits. OTHER SOFT TISSUES: There is no joint effusion. Signal intensity within the sinus tarsi is preserved. There is thickening of the plantar fascia. Remaining soft tissues are without acute abnormality. There are no additional areas of abnormal signal intensity. There are no masses or abnormal fluid collections. IMPRESSION: Achilles tendinosis with insertional tear and reactive edema in the calcaneus. No full-thickness tear identified. Reviewed, Interpreted and Dictated by Fátima Camilo MD Transcribed by Gwen Gonzalez Authenticated by Fátima Camilo MD on 11/12/2021 04:30:[address] [facility]
== END ==
LOC: RAD 13:02
PROVIDERS: PCP Family Medicine; Visit Provider Orthopaedic Surgery
DX: M25.571 Pain in right ankle and joints of right foot (principal)
CPT/HCPCS: 73721

== ENCOUNTER 2021-12-11 09:01 | Emergency (ER) | payer BC, SELFPAY ==
--- NOTE | 2021-12-11 09:22 | HMH.EDUTC ---
[facility] [place] Disposition Clinical Impression: Upper respiratory infection Qualifiers: URI type: unspecified viral URI Qualified Code(s): J06.9 - Acute upper respiratory infection, unspecified Disposition: Home, Self-Care Condition on Discharge: Good Instructions: DI for COVID-19 (Suspected or Confirmed ) Additional Instructions: Strep and flu are negative. COVID19 test pending, should be available later today. Prescriptions: Guaifenesin/Dextromethorphan [Mucinex Dm ER 1,200-60 mg Tab] 1 tab PO BID 10 Days #20 tab Transmission Status: Pending to [facility] predniSONE [Prednisone 20mg Tab] 20 mg PO BID 5 Days #10 tab Transmission Status: Pending to [facility] Referrals: Caprice Chacon MD [Primary Care Provider] - Time of Disposition: 10:02 Medical Decision Making - Aries Inquiry Pt receiving controlled substance: No Vital Signs: 12/11/21 09:25 Temperature 98.6 F Temperature Source Oral Pulse Rate [Left Radial] 78 Respiratory Rate 17 Blood Pressure [Right Arm] 127/90 Blood Pressure Mean [Right Arm] 102 02 Sat by Pulse Oximetry 95 - Lab Data Lab results reviewed: Yes: I reviewed the patient's lab results. Lab Results 12/11/21 09:19: Influenza Type A Ag Negative, Influenza Type B Ag Negative 12/11/21 09:30: Group A Strep Rapid Negative Orders (Tests/Meds): ORDERS Category Date Time Status Strep Screen Confirmation Stat Micro 12/11/21 09:30 Received [facility] [place] HPI - General Stated complaint: fever,cough,stomach upset Time Seen by Provider: 12/11/21 09:22 - History of Present Illness Provider Complaint: Patient states has had stiff neck X 1 week. Yesterday had headache, sore throat, fever. Has upset stomach. Denies ear pain. Denies nasal congestion. Denies rash. No vomiting or diarrhea. Cough is mostly non productive. States he feels like he has stuff in his chest, but cannot cough it out. Onset (ago): day(s) (1) Location: head, chest Consistency: constant Relieving factors: none Exacerbating factors: none Associated symptoms: cough, fever/chills, headaches Treatments prior to arrival: other (OTC cold meds) - Related Data Previous Rx's Medication Instructions Recorded Triamcinolone Acetonide 1 applicatio TP TIDP PRN 7 Days #1 10/31/21 gm Guaifenesin/Dextromethorphan 1 tab PO BID 10 Days #20 tab 12/11/21 [Mucinex Dm ER 1,200-60 mg Tab] predniSONE [Prednisone 20mg 20 mg PO BID 5 Days #10 tab 12/11/21 Tab] Allergies Allergy/AdvReac Type Severity Reaction Status Date / Time No Known Allergies Allergy Verified 12/11/21 09:29 [facility] History - Hepatitis A Screen Attestation statement:: This patient has been screened for Hepatitis A risk factors. 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 ) Fractures: Yes Comment: Left Ankle ORIF - Social History Smoking Status: Never smoker Alcohol Intake: never Occupational Status: employed Family Hx:: Hypertension ROS Obtained: Yes All systems reviewed & no additional complaints - Constitutional Constitutional: Reports chills, Reports fever(s), Reports headache(s), Reports malaise - ENT Ears, Nose, Mouth, and Throat: Reports sore throat - Respiratory Respiratory: Reports chest congestion, Reports cough Physical Exam - General General appearance: alert, in no apparent distress - Head Head exam: normocephalic - Eye Eye exam: Present: PERRL - ENT ENT exam: Present: TM's normal bilaterally - Expanded ENT Exam Nose exam: Absent: sinus tenderness Throat exam: Present: tonsillar erythema - Neck Neck exam: Present: normal inspection. Absent: lymphadenopathy - Chest Chest inspection: Present: normal inspection, symmetric chest wall rise
[2021-12-11 09:25] VITALS: BP 127/90; PULSE 78; RESP 17; TEMP 37; O2SAT 95; BMI 42.5
[2021-12-11 09:34] LABS: UTC Influenza A Antigen Negative (Negative); UTC Influenza B Antigen Negative (Negative)
[2021-12-11 09:56] LABS: Strep Scrn Group A (Rapid) Negative (Negative)
[2021-12-11 11:00] VITALS: BP 127/90; PULSE 78; RESP 17; TEMP 37
[2021-12-12 17:44] LABS: Adenovirus,PCR Not Detected (NotDetected); Bordetella Pertussis Not Detected (NotDetected); Chlamydophila Pneumoniae, PCR Not Detected (NotDetected); Coronavirus 229E Not Detected (NotDetected); Coronavirus NL63 Not Detected (NotDetected); Coronavirus OC43 Not Detected (NotDetected); Coronovirus HKU1,PCR Not Detected (NotDetected); Human Metapneumovirus Not Detected (NotDetected); Influenza A, PCR Not Detected (NotDetected); Influenza AH1, 2009 Not Detected (NotDetected); Influenza AH1, PCR Not Detected (NotDetected); Influenza AH3,PCR Not Detected (NotDetected); Influenza B, PCR Not Detected (NotDetected); Mycoplasma Pneumoniae, PCR Not Detected (NotDetected); Parainfluenza 1, PCR Not Detected (NotDetected); Parainfluenza 2, PCR Not Detected (NotDetected); Parainfluenza 3, PCR Not Detected (NotDetected); Parainfluenza 4, PCR Not Detected (NotDetected); Respiratory Syncytial Virus Not Detected (NotDetected); Rhinovirus/Enterovirus Not Detected (NotDetected)
[2021-12-12 19:12] LABS: Coronavirus 19, PCR Detected (NotDetected)
== END 2021-12-11 11:06 | disposition home or self-care (01) ==
PROVIDERS: Emergency Provider Physician Assistant; PCP Family Medicine
DX: J06.9 Acute upper respiratory infection, unspecified
CPT/HCPCS: 87430; 87581; 87632; 87798; 87804; 99212; C9803; G0463; U0003; U0005

== ENCOUNTER 2021-12-28 08:00 | Outpatient (RCR) | payer BC, SELFPAY ==
--- NOTE | 2021-10-22 09:05 | HMH.PTOPEV ---
PT Outpatient Evaluation Rehab PT Outpatient Evaluation Start: 10/22/21 08:26 Freq: Status: Active Protocol: Document 10/22/21 08:26 ISSAC (Rec: 10/22/21 09:05 ISSAC [id number]) Electronically Signed By Isaac Petty, PT 10/22/21 08:26 Outpatient Therapy Subjective History Subjective History Pt presents w/right achilles tendinitis and plantar fasciitis for ~1 yr. Pt reports recent cortizone injection seems to have improved right arch area pain, however, pt reports despite multiple attempts to improve right achilles area discomfort nothing has helped to date. Pt reports upon standing in the morning posterior right heel pain constant all day. Chief Complaint Pain,Stiff Symptom Type Ache,Sharp,Dull Symptoms Relieved By Rest/Positioning Symptoms Aggravated By Standing,Walking Prior Functional Limitations Standing,Walking Current Functional Limitations Standing,Walking Symptom Description Constant but Variable Level of pain today (0-10) 6 Pain scale - at its best (0-10) 5 Pain scale - at its worst (0-10) 9 Ankle/Foot Eval Gait Observation General Gait Pattern Observation Antalgic Gait Assistive Device Ambulation Assistive Device None Palpation Tenderness right Ankle/Foot Palpation Findings Tenderness Ankle/Foot Palpation Overall Comment achilles tendon insertion 3/4, plantar fascia 0-1/4 ROM Ankle/Foot Dorsiflexion w/Knee Extended +4 Active Range Motion (degrees) Ankle/Foot Plantar Flexion Active Range 4-55 of Motion (degrees) Ankle/Foot Eversion Active Range of 0-19 Motion (degrees) Ankle/Foot Inversion Active Range of 0-21 Motion (degrees) MMT Ankle Dorsiflexion Strength Grade 5 Normal Ankle Plantarflexion Strength Grade 5 Normal Foot Eversion Strength Grade 5 Normal Foot Inversion Strength Grade 5 Normal Outpatient Therapy Assessment Impairments Problems/Impairmments Palpation Tenderness,Impaired Range of Motion,Impaired Gait Pattern,Impaired Walking, Impaired Standing,Impaired Work Activities,Subjective C/O Pain,Impaired Self Care/Self Management Prognosis Rehab Potential Good Clinical Impression Consistent with Diagnosis Yes Short Term Go
== END 2021-12-28 08:05 | disposition home or self-care (01) ==
LOC: PT 08:00
PROVIDERS: PCP Family Medicine; Visit Provider Orthopaedic Surgery
DX: M76.61 Achilles tendinitis, right leg (principal); M25.571 Pain in right ankle and joints of right foot
CPT/HCPCS: 97010; 97014; 97033; 97035; 97110; 97140; 97163; 97164; G0283

== ENCOUNTER 2022-03-21 08:00 | Outpatient (RCR) | payer BC, SELFPAY ==
--- NOTE | 2022-02-16 11:37 | HMH.PTOPEV ---
PT Outpatient Evaluation Rehab PT Outpatient Evaluation Start: 02/16/22 11:11 Freq: Status: Active Protocol: Document 02/16/22 11:12 ISSAC (Rec: 02/16/22 11:37 ISSAC [id number]) Electronically Signed By Isaac Petty, PT 02/16/22 11:12 Outpatient Therapy Subjective History Subjective History Pt reports h/o right achilles tendinitis for ~1 yr. Pt reports recent PRP injection on right achilles d/t other failed treatments to date. Pt reports injection was ~3 weeks ago, 'but hasn't really shown it's helped yet'. Pt reports continued right calf/achilles pain, stiffness, and weakness. Chief Complaint Pain,Stiff,Swelling,Weakness Symptom Type Ache,Sharp,Dull,Stabbing, Burning Symptoms Relieved By Rest/Positioning Symptoms Aggravated By Standing,Physical Activity, Walking Prior Functional Limitations Standing,Walking,Stairs Current Functional Limitations Standing,Walking,Stairs Symptom Description Constant but Variable Level of pain today (0-10) 2 Pain scale - at its best (0-10) 1 Pain scale - at its worst (0-10) 5 Ankle/Foot Eval Gait Observation General Gait Pattern Observation Antalgic Gait Palpation Tenderness right Ankle/Foot Palpation Findings Tenderness Ankle/Foot Palpation Overall Comment achilles insertion 3/4 ROM Ankle/Foot Dorsiflexion w/Knee Extended +10 Active Range Motion (degrees) Ankle/Foot Plantar Flexion Active Range 10-50 of Motion (degrees) Ankle/Foot Eversion Active Range of 0-15 Motion (degrees) Ankle/Foot Inversion Active Range of 0-35 Motion (degrees) Ankle/Foot ROM Limitations Soft Tissue Tightness,Pain MMT Ankle Dorsiflexion Strength Grade 5 Normal Ankle Plantarflexion Strength Grade 3+ Fair+ Foot Eversion Strength Grade 5 Normal Foot Inversion Strength Grade 5 Normal Outpatient Therapy Assessment Impairments Problems/Impairmments Palpation Tenderness,Impaired Range of Motion,Impaired Strength,Impaired Gait Pattern ,Impaired Walking,Impaired Standing,Subjective C/O Pain, Impaired Self Care/Self Management Prognosis Rehab Potential Good Clinical Impression Consistent with Diagnosis Yes Short Term Goals Number of Weeks 4 Decreased Palpation Tenderness Yes: 1-2/4 right achill
--- NOTE | 2022-03-21 08:57 | HMH.RHREAS ---
Rehab Reassessment Rehab OP Re-assessment Start: 03/21/22 08:19 Freq: Status: Active Protocol: Document 03/21/22 08:20 ISSAC (Rec: 03/21/22 08:57 ISSAC [id number]) E-signed By Isaac Petty, PT Rehab Re-assessment Subjective Subjective Pt reports 0/10 right achilles pain this am on VAS, and reports 4-5/10 right achilles pain following ~4 hrs of standing/walking at work, feels 50-60% better overall since I eval Objective Objective Notes AROM: RIGHT ANKLE DF 0-8, PF 0 -50, INV 0-35, EVR 0-15 MMT: RIGHT ANKLE DF 5/5, PF 4- 4-/5, INV 5/5, EVR 5/5 TTP: RIGHT ACHILLES INSERTION 2/4 GAIT: WFL ON LEVEL TERRAIN Assessment Progress Assessment Progressing as Expected Assessment Notes IMPROVED STRENGTH, ROM, TTP, AND GAIT Patient goals met STG'S 12/14 LTG'S 11/14 Goals Not Met STG'S 07/16, LTG'S 09/14 Plan Plan Pt to continue w/skilled P.T. to make further improvements in right achilles/ankle strength, TTP, and ROM to allow for optimal function Frequency of Therapy 1-2x/wk Duration of therapy 3-4wks Time and Billing Re-Eval Time 12 Re-Eval Billing Units 1 PHYSICIAN CERTIFICATION: I certify the specified therapy services for Won Dennis are required, authorized, and reviewed every 30 days.
== END 2022-03-21 08:05 | disposition home or self-care (01) ==
LOC: PT 08:00
PROVIDERS: PCP Physician Assistant; Visit Provider Orthopaedic Surgery
DX: M79.671 Pain in right foot (principal)
CPT/HCPCS: 97010; 97014; 97110; 97112; 97163; 97164; G0283

== ENCOUNTER 2022-04-11 09:31 | Emergency (ER) | payer BC, SELFPAY ==
[2022-04-11 10:20] VITALS: BP 137/97; PULSE 82; RESP 18; TEMP 37; O2SAT 94; BMI 41.8
--- NOTE | 2022-04-11 10:26 | EXP.UTC ---
Discharge Plan Disposition Patient Disposition: Home, Self-Care Condition: Good Prescriptions Prescriptions: New benzonatate [benzonatate] 100 mg capsule 100 mg PO TIDP PRN (Reason: Cough) Qty: 30 0RF ondansetron 4 mg Tablet,Disintegrating 4 mg PO Q8H PRN (Reason: Nausea) Qty: 20 0RF No Action hydroxyzine HCl 10 mg tablet 10 mg PO Referrals Follow up/Referrals: Provider,Referral, MD [Primary Care Provider] - See instructions Activity Restrictions/Add. Instructions Additional Instructions/Restrictions: Drink plenty of fluids. Take tylenol or ibuprofen for pain or fever. Take the medications as directed. Follow up with your regular doctor. GO TO THE ER FOR ANY WORSENING SYMPTOMS Quarantine until you know the results of your covid-19 test. Notify your school or workplace of your results and follow their instructions regarding return to work/school. Clinical Impressions Clinical Impression: Viral syndrome, Exposure to 2019 novel coronavirus Stand Alone Forms Stand Alone Forms: Work/School Release Instructions Patient Instructions: DI for Viral Syndrome, Coronavirus Disease 2019, Preventing the Spread of Coronavirus Discharge Instructions Discharge ED Provider: Saji Reno [facility] [place], [place] General Stated complaint: diarrhea,headache,cough,body aches Time Seen by Provider: 04/11/22 10:26 History of Present Illness Provider Complaint: He states that for the past 2 days he has felt progressively worse. He is having body aches, chills, diarrhea and a dry cough. He has been exposed to covid-19 Related Data Home Medications Medication Instructions Recorded Confirmed hydroxyzine HCl 10 mg tablet 10 mg PO 04/01/22 04/01/22 Previous Rx's Medication Instructions Recorded benzonatate 100 mg capsule 100 mg PO TIDP PRN Cough #30 caps 04/11/22 ondansetron 4 mg disintegrating 4 mg PO Q8H PRN Nausea #20 tabs 04/11/22 tablet Allergies Allergy/AdvReac Type Severity Reaction Status Date / Time No Known Allergies Allergy Verified 04/01/22 09:13 [facility] [place] Medical History Migraine Family History Other Hypertension Social History Smoking Status: Never smoker alcohol intake: never current occupational status: employed Travel in the last 8 weeks: None ROS Obtained: Yes All systems reviewed & no additional complaints except as documented Constitutional Constitutional: Reports chills and Reports fever(s) Eyes Eyes: Denies eye discharge ENT Ears, Nose, Mouth, and Throat: Reports as per HPI Cardiovascular Cardiovascular: Denies chest pain Respiratory Respiratory: Denies chest congestion and Reports cough Gastrointestinal Gastrointestingal: Reports nausea; Denies abdominal pain, constipation, cramping, diarrhea or vomiting Musculoskeletal Musculoskeletal: Denies arthralgias Integumentary/Breasts Skin/Breast: Denies rash Neurologic Neurologic: Denies paresthesias Physical Exam General General appearance: alert and in no apparent distress Head Head exam: atraumatic, normocephalic and normal inspection Eye Eye exam: Present normal appearance, PERRL and EOMI ENT ENT exam: Present normal exam, normal oropharynx, mucous membranes moist, TM's normal bilaterally and normal external ear exam Neck Neck exam: Present normal inspection, full ROM and trachea midline; Absent meningismus or lymphadenopathy Chest Chest inspection: Present normal inspection and symmetric chest wall rise; Absent tenderness Respiratory Respiratory exam: Present normal lung sounds bilaterally; Absent respiratory distress Cardiovascular Cardiovascular exam: Present regular rate and normal rhythm; Absent JVD Abdominal Exam Abdominal exam: Present soft and normal bowel sounds; Absent distention, tenderness or guarding Extremities Exam Extrem
[2022-04-11 10:46] VITALS: BP 137/97; PULSE 82; RESP 18; TEMP 37; O2SAT 94
== END 2022-04-11 10:49 | disposition home or self-care (01) ==
PROVIDERS: Emergency Provider Nurse Practitioner Family
DX: R19.7 Diarrhea, unspecified (principal); M79.10 Myalgia, unspecified site; G43.909 Migraine, unspecified, not intractable, without status migrainosus; R11.0 Nausea; R05.9 Cough, unspecified; Z20.822 Contact with and (suspected) exposure to COVID-19; Z82.49 Family history of ischemic heart disease and other diseases of the circulatory system
CPT/HCPCS: 99213; C9803; G0463; U0003; U0005

== ENCOUNTER 2022-04-29 07:12 | Emergency (ER) | payer BC, SELFPAY ==
[2022-04-29] VITALS (10 sets, daily range): BP systolic 119–138; BP diastolic 63–96; PULSE 70–81; RESP 15–18; TEMP 36.8; O2SAT 93–98; BMI 41.8
--- NOTE | 2022-04-29 07:45 | XR_ITS ---
FINAL REPORT CLINICAL HISTORY: knee pain and swelling, NO INJURY FINDINGS: RIGHT KNEE Three views of the right knee reveal no evidence of fracture or dislocation. The bony alignment is normal. There are mild degenerative changes. There is no evidence of joint effusion. No localized soft tissue abnormality is identified. IMPRESSION: Mild degenerative change with no acute abnormality identified. Reviewed, Interpreted and Dictated by Won Carey III, MD Transcribed by Brittany Vasquez Authenticated and . [facility]
--- NOTE | 2022-04-29 07:46 | HMH.EDEXTP ---
Discharge Plan Disposition Patient Disposition: Home, Self-Care Condition: Good Prescriptions Prescriptions: No Action hydroxyzine HCl 10 mg tablet 10 mg PO benzonatate [benzonatate] 100 mg capsule 100 mg PO TIDP PRN (Reason: Cough) Qty: 30 0RF ondansetron 4 mg Tablet,Disintegrating 4 mg PO Q8H PRN (Reason: Nausea) Qty: 20 0RF Referrals Follow up/Referrals: Caprice Chacon MD [Primary Care Provider] - See instructions Macario Burkett MD [Staff Physician] - See instructions (Acute on chronic right knee pain, needs follow-up with primary care and possible further management. Joint aspiration on 04/29 initially unremarkable) Activity Restrictions/Add. Instructions Additional Instructions/Restrictions: Follow-up with your primary care provider regarding this visit to the emergency department and scheduling physical therapy. If you have fevers, chills, red streaking up your leg, or any other concerning symptoms, return to the ED for further evaluation, or your primary care provider. Clinical Impressions Clinical Impression: Acute knee pain Discharge ED Provider: Mason Boggs Extremity Problem HPI <Edgar Moreno MD - Last Filed: 04/29/22 07:54> General Chief complaint: Extremity Injury, Lower Stated complaint: right knee swollen, unknow origin Time Seen by Provider: 04/29/22 07:20 Mode of Arrival: Ambulatory Source of Information: Patient Limitations: No Limitations Description of Symptoms (Recalled from ER Triage Doc. by RN): Pt c/o pain in L knee pain x4 days. Pt reports no known injury. Pt reports swelling not improving with ibuprofen and ice. Non-pitting edema noted. History of Present Illness HPI Narrative: 41-year-old male presents with 4 days of right knee pain. States it is gradually getting worse he does not have any awareness of any injuries to the knee. Denies fevers chills or body aches. He has had arthritis in his knees previously and had injections but he cannot remember which knee he had steroid injections in. No history of gout states that he has a chronic Achilles injury that is plan for surgery soon as well. Pain is 5 out of 10 he used ibuprofen yesterday with minimal relief. Related Data Home Medications Medication Instructions Recorded Confirmed hydroxyzine HCl 10 mg tablet 10 mg PO 04/01/22 04/15/22 Previous Rx's Medication Instructions Recorded benzonatate 100 mg capsule 100 mg PO TIDP PRN Cough #30 caps 04/11/22 ondansetron 4 mg disintegrating 4 mg PO Q8H PRN Nausea #20 tabs 04/11/22 tablet Allergies Allergy/AdvReac Type Severity Reaction Status Date / Time No Known Allergies Allergy Verified 04/15/22 08:52 PFSH <Edgar Moreno MD - Last Filed: 04/29/22 07:54> PFSH Medical History Migraine Family History Other Hypertension Social History Smoking Status: Never smoker alcohol intake: never current occupational status: employed Travel in the last 8 weeks: None <Edgar Moreno MD - Last Filed: 04/29/22 07:54> ROS Obtained: Yes Systems reviewed as appropriate & no additional complaints except as documented Physical Exam <Edgar Moreno MD - Last Filed: 04/29/22 07:54> General General appearance: alert and in no apparent distress Head Head exam: atraumatic and normocephalic ENT ENT exam: Present mucous membranes moist Neck Neck exam: Present trachea midline Chest Chest inspection: Present symmetric chest wall rise Respiratory Respiratory exam: Absent respiratory distress Cardiovascular Cardiovascular exam: Present regular rate Expanded Lower Extremity Exam Right: Knee exam: Present tenderness and swelling; Absent ecchymosis, deformity, crepitus or erythema Neurological Exam Neurological exam: Present alert and oriented X3 Psychiatric Psychiatric exam: Divya
--- NOTE | 2022-04-29 07:54 | PC.NURSE ---
pt to radiology
[2022-04-29 08:06] LABS: Basophils # 0.1 K/mm3 (0-0.2); Basophils % 0.7 % (0.1-2.0); Eosinophils # 0.2 K/mm3 (0.0-0.4); Eosinophils % 1.9 % (0.1-12.0); Hemoglobin 16.2 g/dL (14.1-18.0); Lymphocytes # 1.5 K/mm3 (0.7-4.5); Lymphocytes % 15.6 % (10-50); Mean Corpuscular HGB Conc 33.1 g/dL (31.8-35.4); Mean Corpuscular Hemoglobin 27.8 pg (27.0-31.2); Mean Corpuscular Volume 83.8 fl (80-94); Monocytes # 0.8 K/mm3 (0.1-1.0); Monocytes % 8.2 % (1.7-9.3); Neutrophils # 7.2 K/mm3 (1.8-7.8); Neutrophils % 73.5 % (37.0-80.0); Platelet Count 269 K/mm3 (142-424); Red Blood Count 5.85 M/mm3 (4.60-6.20); Red Cell Distribution Width 13.5 % (11.5-17.5); White Blood Count 9.9 K/mm3 (4.8-10.8)
[2022-04-29 08:29] LABS: Alanine Aminotransferase 34 U/L (12-78); Albumin/Globulin Ratio 1.1 (1.1-1.8); Alkaline Phosphatase 99 U/L (38-126); Anion Gap 16.2 mEq/L (5-15); Aspartate Amino Transferase 39 U/L (17-59); Bilirubin,Total 0.9 mg/dl (0.2-1.3); Blood Urea Nitrogen 21 mg/dl (9-20); Calcium 8.3 mg/dl (8.4-10.2); Carbon Dioxide 25 mmol/L (22.0-30.0); Chloride 104 mmol/L (98-107); Creatinine Clearance Estimated 129 mL/min (50-200); Estimated Glomerular Filt Rate 107 ml/min (>60); GFR (African American) 129 ML/MIN (>60); Globulin 3.8 g/dL (1.3-3.2); Glucose 106 mg/dl (74-100); Potassium 4.2 mmoL/L (3.5-5.1); Sodium 141 mmol/L (136-145); Total Protein,Serum 7.8 g/dl (6.3-8.2)
[2022-04-29 08:34] LABS: C-Reactive Protein 35.4 mg/L (0-4)
[2022-04-29 08:58] LABS: Erythrocyte Sedimentation Rate 13 mm/hr (0-15)
--- NOTE | 2022-04-29 09:31 | PC.NURSE ---
spoke with eddi in the lab who was changing specimen order to the appropriate test. notified.
--- NOTE | 2022-04-29 10:03 | PC.NURSE ---
checked on pt at this time, pt states no needs. will continue to monitor
[2022-04-29 11:26] LABS: Lactic Acid 0.7 mmol/L (0.7-2.1)
[2022-04-30 19:12] LABS: Clarity,Fluid Hazy (Clear); Color,Fluid Yellow (Yellow); Eosinophils,Fluid 0 % (Not Estab.); Lymphocytes,Fluid 10 % (Not Estab.); Macrophages,Fluid 22 % (Not Estab.); Nucleated cells, Syn. Fluid 342 cells/uL (0-200); Polys,Fluid 68 % (Not Estab.); RBC,Fluid 12000 /uL (Not Estab.)
== END 2022-04-29 12:29 | disposition home or self-care (01) ==
PROVIDERS: Student in an Organized Health Care Education/Training Program; Emergency Provider Emergency Medicine; PCP Family Medicine
DX: M25.561 Pain in right knee (principal)
CPT/HCPCS: 20610; 73562; 80053; 83605; 85025; 85651; 86140; 87040; 87070; 87205; 89051; 96365; 99284

== ENCOUNTER → 2022-06-17 09:10 | Outpatient (CLI) | payer BC, SELFPAY ==
[2022-06-17 09:25] LABS: Microscopic, Urine URINE MICROSCOPIC (MICROSCOPIC)
[2022-06-17 10:32] LABS: Appearance,Urine CLEAR (Clear); Bilirubin,Urine Negative (Negative); Blood, Urine Negative (Negative); Color,Urine YELLOW (Yellow); Glucose,Urine (UA) Negative (Negative); Ketones,Urine Negative (Negative); Leukocyte Esterase,Urine Negative (Negative); Nitrate,Urine Negative (Negative); PH,Urine 5.5 (5.0-8.5); Protein,Urine Negative (Negative); Specific Gravity, Urine 1.025 (1.005-1.030); Urobilinogen,Urine 0.2 EU/dl (0.2)
[2022-06-17 10:45] LABS: Bacteria,Urine Trace /lpf; WBC,Urine Occasional #/hpf (0-3)
[2022-06-17 11:15] LABS: Alanine Aminotransferase 37 U/L (12-78); Albumin Level 4.5 g/dl (3.5-5.0); Albumin/Globulin Ratio 1.5 (1.1-1.8); Alkaline Phosphatase 99 U/L (38-126); Anion Gap 11.6 mEq/L (5-15); Aspartate Amino Transferase 37 U/L (17-59); Bilirubin,Total 0.5 mg/dl (0.2-1.3); Blood Urea Nitrogen 18 mg/dl (9-20); Calcium 9.4 mg/dl (8.4-10.2); Carbon Dioxide 27 mmol/L (22.0-30.0); Chloride 105 mmol/L (98-107); Estimated Glomerular Filt Rate 93 ml/min (>60); GFR (African American) 113 ML/MIN (>60); Globulin 3.1 g/dL (1.3-3.2); Glucose 98 mg/dl (74-100); Potassium 4.6 mmoL/L (3.5-5.1); Sodium 139 mmol/L (136-145); Total Protein,Serum 7.6 g/dl (6.3-8.2)
[2022-06-17 11:40] LABS: Basophils % 0.6 % (0.1-2.0); Eosinophils # 0.2 K/mm3 (0.0-0.4); Hematocrit 51.1 % (42.0-52.0); Hemoglobin 15.9 g/dL (14.1-18.0); Lymphocytes # 1.4 K/mm3 (0.7-4.5); Lymphocytes % 22.2 % (10-50); Mean Corpuscular HGB Conc 31.2 g/dL (31.8-35.4); Mean Corpuscular Hemoglobin 26.7 pg (27.0-31.2); Mean Corpuscular Volume 85.7 fl (80-94); Monocytes # 0.5 K/mm3 (0.1-1.0); Monocytes % 7.3 % (1.7-9.3); Neutrophils # 4.2 K/mm3 (1.8-7.8); Neutrophils % 66.9 % (37.0-80.0); Platelet Count 317 K/mm3 (142-424); Red Blood Count 5.96 M/mm3 (4.60-6.20); Red Cell Distribution Width 14.1 % (11.5-17.5); White Blood Count 6.3 K/mm3 (4.8-10.8)
== END ==
PROVIDERS: PCP Family Medicine; Visit Provider Orthopaedic Surgery
DX: Z01.818 Encounter for other preprocedural examination (principal); M76.61 Achilles tendinitis, right leg
CPT/HCPCS: 36415; 80053; 81001; 85025

== ENCOUNTER 2022-06-24 08:59 | Day surgery (SDC) | payer BC, SELFPAY ==
[2022-06-23 13:55] VITALS: BMI 43.2
[2022-06-24] VITALS (12 sets, daily range): BP systolic 127–156; BP diastolic 69–97; PULSE 80–95; RESP 16–20; TEMP 36.1–43; O2SAT 92–99
--- NOTE | 2022-06-24 12:50 | EXP.ANES.I ---
[facility] Anesthesia Record Part I Anesthesia Record I Intake, IV Amount: 1,000 Estimated blood loss (mL): 5 Urine output (mL): 0 Blood Pressure: 138/76 SaO2: 98 Pulse Rate: 95 Respiratory Rate: 16 Temperature: 97.0 F Patient is:: Drowsy Stable to PACU at:: 12:45
--- NOTE | 2022-06-24 13:16 | EXP.OP.NOTE ---
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 He had tried physical therapy, boot wear, brace wear, multiple rounds of physical therapy, and office platelet rich plasma injection. I had a discussion with him regarding further management. Having failed prior conservative measures she was interested in more durable intervention. He is very active, and I counseled him that I would want to avoid taking down the tendon to perform a formal Adiel's resection if possible. As such, I recommended minimally invasive right calcaneal ostectomy, Tenex Achilles debridement with platelet rich plasma injection. He was amenable with the plan. We discussed the risk and benefits of surgery. Risks included but were not limited to pain, bleeding, infection, damage to adjacent structures, need for further surgery, wound healing complications, loss of limb, . Patient expressed verbal consent and written consent was obtained for the above procedure. Operative findings:: Fluoroscopic imaging confirmed Adiel's resection and calcific tendinosis resection Operative note:: Patient was identified in preoperative holding. Operative site was marked in indelible ink. History, physical, consent were reviewed and updated. Patient was surrendered to the anesthesia team, taken to the operative suite, placed prone on a well-padded operative table. A nonsterile thigh tourniquet. Anesthesia was induced. The operative extremity was prepped and draped in the usual sterile fashion. The operative team donned sterile gowns and gloves and a timeout was called. All in attendance agreed regarding the patient's identity, procedure, operative site. Weight-based dose of antibiotics was given prior to incision. Utilizing a subcentimeter medial incision adjacent to the Achilles tendon insertion, I freed up the space between the Achilles tendon and calcaneus using a blunt Elmore. Utilizing a minimally invasive bur, I resected the posterior calcaneus exostosis as well as distal Achilles calcific tissue. I then utilized the [employer] ultrasonic debridement device, and under ultrasonic guidance, debrided the distal Achilles insertion for 64 seconds. I copiously irrigated the wound, closed with 2-0 Vicryl and 3-0 nylon suture. I then injected platelet rich plasma into the Achilles tendon insertion. He had normal Hill's test following the procedure. Sterile dressings applied followed by postoperative boot. Counts were correct x2. There were no apparent complications. I was present and scrubbed for the entire case. Tourniquet time (min): 33 Condition: stable Disposition: PACU Specimens:: None Complications:: None apparent
--- NOTE | 2022-06-24 13:30 | SUR.PHASEI ---
1312 called and gave detailed report to Carmelo Posada RN 1315 transported via stretcher to post op. vital signs stable. no reports of pain at this time. left in stable condition with Carmelo Posada RN at bedside.
--- NOTE | 2022-06-24 13:35 | XR_ITS ---
FINAL REPORT CLINICAL HISTORY: RT ANKLE IN OR ft: 1:28 FINDINGS: FLUORO TIME PROCEDURE: Right ankle in OR. FINDINGS: Fluoroscopy time was provided by the radiology department for the clinical service. Three films were obtained. Fluoroscopy exposure time: 1.28 minute IMPRESSION: See above Reviewed, Interpreted and Dictated by Won Carey III, MD Transcribed by Brittany Vasquez Authenticated and [facility]
--- NOTE | 2022-06-24 14:14 | EXP.ANES.I ---
[facility] Anesthesia Record Part I Anesthesia Record I Intake, IV Amount: 700 Estimated blood loss (mL): 2 Urine output (mL): 0 Blood Pressure: 147/97 SaO2: 92 Pulse Rate: 82 Respiratory Rate: 16 Temperature: 97.0 F Patient is:: Drowsy, Nasal O2 and Stable Stable to PACU at:: 14:10
[2022-06-27 08:40] VITALS: BP 135/84; PULSE 89; TEMP 36.1
--- NOTE | 2022-06-27 08:40 | P.PNANES_ITS ---
[facility] Anesthesia Record Part II Anesthesia Record Part II Discharge Time: 13:15 Destination: Surgical Day Care (OP Surgery) PACU nurse assessment reviewed?: Yes Patient Condition:: Good Anesthesia Complications:: None Swallowing reflex intact?: Yes Cyanosis?: No Blood Pressure: 135/84 Pulse Rate: 89 Temperature: 97 F Mental Status: Alert & Oriented Pain level:: 0 Nausea and/or vomitting:: None Intake, IV Amount: 0
== END 2022-06-24 14:05 | disposition home or self-care (01) ==
PROVIDERS: PCP Family Medicine; Visit Provider Orthopaedic Surgery
PROC: (CPT 28118; principal; 2022-06-24 10:45)
DX: M76.61 Achilles tendinitis, right leg (principal); M77.31 Calcaneal spur, right foot; M92.61 Juvenile osteochondrosis of tarsus, right ankle
CPT/HCPCS: 28118; 27618; 27680; 73600; 76000; 96374; 97760; J2405

== ENCOUNTER 2022-07-04 00:04 | Emergency (ER) | payer BC, SELFPAY ==
[2022-07-04 00:05] VITALS: BP 133/74; PULSE 85; RESP 16; TEMP 37.4; O2SAT 95; BMI 41.8
[2022-07-04 00:54] LABS: Basophils # 0.1 K/mm3 (0-0.2); Basophils % 0.8 % (0.1-2.0); Eosinophils # 0.2 K/mm3 (0.0-0.4); Eosinophils % 2.3 % (0.1-12.0); Hematocrit 46.8 % (42.0-52.0); Hemoglobin 15.5 g/dL (14.1-18.0); Lymphocytes # 2.2 K/mm3 (0.7-4.5); Lymphocytes % 24.7 % (10-50); Mean Corpuscular HGB Conc 33.2 g/dL (31.8-35.4); Mean Corpuscular Hemoglobin 27.8 pg (27.0-31.2); Mean Corpuscular Volume 83.6 fl (80-94); Mean Platelet Volume 7.3 fl (7.4-10.4); Monocytes # 0.6 K/mm3 (0.1-1.0); Monocytes % 6.5 % (1.7-9.3); Neutrophils # 5.9 K/mm3 (1.8-7.8); Neutrophils % 65.7 % (37.0-80.0); Platelet Count 316 K/mm3 (142-424); Red Cell Distribution Width 13.9 % (11.5-17.5); White Blood Count 8.9 K/mm3 (4.8-10.8)
[2022-07-04 01:04] LABS: Alanine Aminotransferase 29 U/L (12-78); Albumin Level 4.4 g/dl (3.5-5.0); Albumin/Globulin Ratio 1.2 (1.1-1.8); Alkaline Phosphatase 89 U/L (38-126); Anion Gap 9.9 mEq/L (5-15); Aspartate Amino Transferase 34 U/L (17-59); Bilirubin,Total 0.6 mg/dl (0.2-1.3); Blood Urea Nitrogen 17 mg/dl (9-20); Calcium 9.3 mg/dl (8.4-10.2); Carbon Dioxide 28 mmol/L (22.0-30.0); Chloride 104 mmol/L (98-107); Creatinine Clearance Estimated 93 mL/min (50-200); Estimated Glomerular Filt Rate 73 ml/min (>60); GFR (African American) 89 ML/MIN (>60); Globulin 3.8 g/dL (1.3-3.2); Glucose 105 mg/dl (74-100); Lactic Acid 0.7 mmol/L (0.7-2.1); Potassium 3.9 mmoL/L (3.5-5.1); Sodium 138 mmol/L (136-145); Total Protein,Serum 8.2 g/dl (6.3-8.2)
--- NOTE | 2022-07-04 01:20 | CT_ITS ---
PROCEDURE INFORMATION: Exam: CT Right Lower Extremity With Contrast, Foot Exam date and time: 07/04/2022 2:14 AM Age: 42 years old Clinical indication: Pain; Right; Prior surgery; Surgery date: 3-7 days post-operative; Surgery type: RT foot surgery; Additional info: Foot wound TECHNIQUE: Imaging protocol: CT of the Right lower extremity with intravenous contrast was performed. Exam focused on the foot. Radiation optimization: All CT scans at this facility use at least one of these dose optimization techniques: automated exposure control; mA and/or kV adjustment per patient size (includes targeted exams where dose is matched to clinical indication); or iterative reconstruction. Contrast material: ISOVUE; Contrast volume: 75 ml; Contrast route: IV; COMPARISON: CR XR FOOT RT 2V 01/05/2021 6:51 PM FINDINGS: Bones/joints: There is irregularity and bone loss involving the posterior calcaneal tuberosity which may represent sequela of prior osteotomy. There is soft tissue calcification in this region suggesting callus formation. There is no discrete lytic process. A small to moderate inferior calcaneal spur is noted. The remaining osseous structures of the foot demonstrate no acute or focal finding. Soft tissues: There is thickening of the Achilles tendon with foci of calcification present consistent with tendinosis. Subcutaneous edema is noted at the level of the posterior calcaneus. Other findings: There is no focal fluid collection or abscess. IMPRESSION: 1. Findings involving the posterior calcaneal tuberosity consistent with prior osteotomy. There is soft tissue calcification which may represent callus formation. CT evidence for osteomyelitis is lacking. Further evaluation with MR imaging could be performed if there remains clinical concern for osteomyelitis. 2. Thickening of the distal Achilles tendon with surrounding subcutaneous edema consistent with tendinosis. 3. There is no donny fluid collection or abscess.
--- NOTE | 2022-07-04 02:03 | HMH.EDWNDL ---
Discharge Plan Disposition Patient Disposition: Home, Self-Care Chief Complaint: Wound/Laceration Prescriptions Prescriptions: No Action methotrexate sodium 2.5 mg tablet 30 mg PO WEEKLY folic acid 1 mg tablet 1 mg PO DAILY Tremfya 100 mg/mL Auto-Injector 100 mg SQ DIRECTED Rx Instructions: [id number] oxycodone 5 mg tablet 5 mg PO Q4H PRN (Reason: pain) Qty: 30 0RF cephalexin 500 mg capsule 500 mg PO QID Qty: 40 0RF cephalexin 500 mg capsule 500 mg PO QID Qty: 20 0RF Referrals Follow up/Referrals: Macario Burkett MD [Primary Care Provider] - See instructions Sushil Dean JR, MD [Physician] - See instructions Clinical Impressions Clinical Impression: Right foot pain Instructions Patient Instructions: How to Care for a Surgical Wound Discharge ED Provider: Aydin Whitman Wound/Laceration HPI General Chief Complaint: Wound/Laceration Stated Complaint: 06/24 right foot surgery; irritated, odor Time Seen by Provider: 07/04/22 02:03 Mode of Arrival: Wheelchair Source of Information: Patient Limitations: No Limitations Description of Symptoms (Recalled from ER Triage Doc. by RN): pt c/o pain in the right foot pt had a achillies surgery on 06/23/[address] Dean. pt reports that he has been following all orders and has had been keeping his foot elevated. pt stated that. he had been ordered to keep the badage on the foot to not take it off. pt states the discomfort got so bad that he had to take it off. the pt was able to take off the bandage and clean the wound. pt stated he did discontinue the antibiotic on his own due to it making him worse the pt had an open sore stage 2 pressure ulcer next to the suture area and has another soreness on the other side looking as if there may be another pressure wound developing. History of Present Illness HPI narrative: pt with recent surg to rt achilles on 06/23 pt with increased pain and had odor from surg site per family - pt unable to kwabena keflex Onset (ago): day(s) Extremity Location: Right: foot Place: home Context: other (recent surg ) Related Data Home Medications Medication Instructions Recorded Confirmed folic acid 1 mg tablet 1 mg PO DAILY Supplement 06/23/22 06/23/22 guselkumab 100 mg/mL subcutaneous 100 mg SQ DIRECTED PSORIASIS 06/23/22 06/24/22 auto-injector (Tremfya) methotrexate sodium 2.5 mg tablet 30 mg PO WEEKLY PSORIASIS 06/23/22 06/23/22 Previous Rx's Medication Instructions Recorded cephalexin 500 mg capsule 500 mg PO QID #20 caps 06/24/22 cephalexin 500 mg capsule 500 mg PO QID #40 caps 06/24/22 oxycodone 5 mg tablet 5 mg PO Q4H PRN pain #30 tabs 06/24/22 Allergies Allergy/AdvReac Type Severity Reaction Status Date / Time Latex, Natural Rubber Allergy Mild cooper skin Verified 06/24/22 09:25 cephalexin [From Keflex] AdvReac Mild Vomiting Verified 07/04/22 04:01 [facility] Disclaimer: The information contained in this section may have been updated after the patient was seen, as this information can be updated by other users. Medical History (Updated 07/04/22 @ 04:46 by Aydin Whitman MD) Migraine Psoriasis Surgical History Hx of surgical amputation of finger Previous back surgery Status post tendon repair Family History Other Hypertension Social History (Updated 06/24/22 @ 09:24 by Thea Otriz RN) Smoking Status: Never smoker alcohol intake: never current occupational status: employed Travel in the last 8 weeks: None ROS Obtained: Yes All systems reviewed & no additional complaints except as documented Physical Exam General General appearance: alert Head Head exam: normocephalic Eye Eye exam: Present PERRL and EOMI ENT ENT exam: Present mucous membranes moist Neck Neck exam: Present trachea midline Respiratory Respiratory e
[2022-07-04 04:14] LABS: C-Reactive Protein 30.9 mg/L (0-4)
[2022-07-04 04:28] LABS: Procalcitonin 0.044 ng/mL (0.0-2.0)
[2022-07-04 04:52] LABS: Erythrocyte Sedimentation Rate 52 mm/hr (0-15)
[2022-07-04 04:56] VITALS: BP 150/88; PULSE 69; RESP 16; TEMP 36.8; O2SAT 95
== END 2022-07-04 05:06 | disposition home or self-care (01) ==
PROVIDERS: Emergency Provider Emergency Medicine; PCP Family Medicine
DX: M79.671 Pain in right foot (principal); D64.9 Anemia, unspecified; K21.9 Gastro-esophageal reflux disease without esophagitis; G43.909 Migraine, unspecified, not intractable, without status migrainosus; Z88.8 Allergy status to other drugs, medicaments and biological substances; Z91.040 Latex allergy status; Z98.890 Other specified postprocedural states
CPT/HCPCS: 73701; 80053; 83605; 84145; 85025; 85651; 86140; 87040; 87070; 87077; 87186; 87205; 96374; 99285; J0696; J2405; Q9967

== ENCOUNTER → 2022-07-05 16:03 | Outpatient (CLI) | payer BC, SELFPAY | PROVIDERS: Visit Provider Physician Assistant Surgical | DX: M79.671 Pain in right foot (principal); S91.301A Unspecified open wound, right foot, initial encounter | CPT/HCPCS: 87075; 87205 ==

== ENCOUNTER 2022-07-08 12:35 | Inpatient (IN) | payer BC, SELFPAY ==
[2022-07-08] VITALS (19 sets, daily range): BP systolic 117–147; BP diastolic 66–90; PULSE 74–101; RESP 12–20; TEMP 36.1–37; O2SAT 90–98; BMI 42.8
--- NOTE | 2022-07-08 13:21 | HMH.EDGENADL ---
Discharge Plan Disposition Patient Disposition: Admitted As Inpatient Condition: Good Clinical Impressions Clinical Impression: Foot infection Discharge ED Provider: Mason Boggs General Adult HPI General Chief complaint: Wound/Laceration Stated complaint: possible staph infection per Dr. Dean Time Seen by Provider: 07/08/22 12:43 Mode of Arrival: Ambulatory Source of Information: Patient Limitations: No Limitations History of Present Illness HPI narrative: This is a 42-year-old male with history of recent surgery on his right ankle secondary to osteophyte and osteoarthritis presenting with postop infection. Patient states that he had surgery on 1215 with orthopedics here [facility]. Since that time, was doing all right till proximately 1 week prior to arrival. He began having pain, redness, drainage from the wound. He went to his orthopedic surgeon today who removed the stitches, determined he had postop infection and sent to the ER for further evaluation, work-up, admission for work-up and washout. Denies fevers, chills, red streaking up his leg, lymphadenopathy, trauma, or any other concerning history. Related Data Home Medications Medication Instructions Recorded Confirmed folic acid 1 mg tablet 1 mg PO DAILY Supplement 06/23/22 07/08/22 guselkumab 100 mg/mL subcutaneous 100 mg SQ DIRECTED PSORIASIS 06/23/22 07/08/22 auto-injector (Tremfya) methotrexate sodium 2.5 mg tablet 30 mg PO WEEKLY PSORIASIS 06/23/22 07/08/22 sulfamethoxazole 800 1 tab PO BID abx 07/08/22 07/08/22 mg-trimethoprim 160 mg tablet (Bactrim DS) Previous Rx's Medication Instructions Recorded oxycodone 5 mg tablet 5 mg PO Q4H PRN pain #30 tabs 06/24/22 ondansetron 4 mg disintegrating 4 mg PO Q8H PRN nausea and 07/05/22 tablet vomiting #7 tabs Allergies Allergy/AdvReac Type Severity Reaction Status Date / Time Latex, Natural Rubber Allergy Mild cooper skin Verified 07/08/22 11:53 cephalexin [From Keflex] AdvReac Mild Vomiting Verified 07/08/22 11:53 [facility] Disclaimer: The information contained in this section may have been updated after the patient was seen, as this information can be updated by other users. Medical History (Updated 12/30/22 @ 16:45 by Monisha Corona RN) History of anemia History of gastroesophageal reflux (GERD) Migraine Psoriasis Surgical History Hx of surgical amputation of finger Previous back surgery Status post tendon repair Family History Other Hypertension Social History Smoking Status: Never smoker alcohol intake: never current occupational status: employed Travel in the last 8 weeks: None ROS Obtained: Yes All systems reviewed & no additional complaints except as documented Physical Exam General General appearance: alert and in no apparent distress Head Head exam: atraumatic, normocephalic and normal inspection Eye Eye exam: Present normal appearance, PERRL and EOMI ENT ENT exam: Present normal exam, normal oropharynx, mucous membranes moist, TM's normal bilaterally and normal external ear exam Neck Neck exam: Present normal inspection, full ROM and trachea midline; Absent meningismus or lymphadenopathy Chest Chest inspection: Present normal inspection and symmetric chest wall rise; Absent tenderness Respiratory Respiratory exam: Present normal lung sounds bilaterally; Absent respiratory distress Cardiovascular Cardiovascular exam: Present regular rate and normal rhythm; Absent JVD Abdominal Exam Abdominal exam: Present soft and normal bowel sounds; Absent distention, tenderness or guarding Extremities Exam Extremities exam: Present tenderness, normal capillary refill, edema and joint swelling; Absent normal inspection, full ROM or calf tenderness Back Exam Back exam: Present normal inspection
[2022-07-08 13:24] LABS: Basophils # 0.1 K/mm3 (0-0.2); Basophils % 0.9 % (0.1-2.0); Chloride 106 mmol/L (98-107); Eosinophils # 0.2 K/mm3 (0.0-0.4); Eosinophils % 2.6 % (0.1-12.0); Hematocrit 50.6 % (42.0-52.0); Hemoglobin 16.5 g/dL (14.1-18.0); Lymphocytes # 1.6 K/mm3 (0.7-4.5); Lymphocytes % 21.5 % (10-50); Mean Corpuscular HGB Conc 32.5 g/dL (31.8-35.4); Mean Corpuscular Hemoglobin 28.2 pg (27.0-31.2); Mean Corpuscular Volume 86.8 fl (80-94); Mean Platelet Volume 7.8 fl (7.4-10.4); Monocytes # 0.5 K/mm3 (0.1-1.0); Neutrophils # 5.3 K/mm3 (1.8-7.8); Platelet Count 385 K/mm3 (142-424); Red Blood Count 5.83 M/mm3 (4.60-6.20); Red Cell Distribution Width 14.2 % (11.5-17.5); White Blood Count 7.7 K/mm3 (4.8-10.8)
[2022-07-08 13:25] LABS: Sodium 141 mmol/L (136-145)
[2022-07-08 13:27] LABS: Blood Urea Nitrogen 15 mg/dl (9-20); Estimated Glomerular Filt Rate 73 ml/min (>60); GFR (African American) 89 ML/MIN (>60)
[2022-07-08 13:28] LABS: Calcium 8.6 mg/dl (8.4-10.2); Carbon Dioxide 24 mmol/L (22.0-30.0); Glucose 97 mg/dl (74-100)
--- NOTE | 2022-07-08 14:07 | EXP.PHA.CONS ---
Pharmacy Consult Date: 07/08/22 Time: 14:18 Referring provider: DR BRYANT Reason for Consult:: VANCOMYCIN DOSE CONSULT Allergies Allergy/AdvReac Type Severity Reaction Status Date / Time Latex, Natural Rubber Allergy Mild cooper skin Verified 07/08/22 11:53 cephalexin [From Keflex] AdvReac Mild Vomiting Verified 07/08/22 11:53 Home Medications Medication Instructions Recorded Confirmed Type folic acid 1 mg tablet 1 mg PO DAILY Supplement 06/23/22 07/08/22 History guselkumab 100 mg/mL subcutaneous 100 mg SQ DIRECTED PSORIASIS 06/23/22 07/08/22 History auto-injector (Tremfya) methotrexate sodium 2.5 mg tablet 30 mg PO WEEKLY PSORIASIS 06/23/22 07/08/22 History cephalexin 500 mg capsule 500 mg PO QID #20 caps 06/24/22 07/08/22 Rx cephalexin 500 mg capsule 500 mg PO QID #40 caps 06/24/22 07/08/22 Rx oxycodone 5 mg tablet 5 mg PO Q4H PRN pain #30 tabs 06/24/22 07/08/22 Rx ondansetron 4 mg disintegrating 4 mg PO Q8H PRN nausea and 07/05/22 07/08/22 Rx tablet vomiting #7 tabs sulfamethoxazole 800 1 tab PO BID 10 days #20 tabs 07/05/22 07/08/22 Rx mg-trimethoprim 160 mg tablet (Bactrim DS) New Prescriptions to Start Prescriptions: Height: 1.75 m Weight: 127.913 kg Laboratory Results:: Laboratory Results - last 24 hr 07/08/22 13:05: WBC 7.7, RBC 5.83, Hgb 16.5, Hct 50.6, MCV 86.8, MCH 28.2, MCHC 32.5, RDW 14.2, Plt Count 385, MPV 7.8, Neut % (Auto) 69.0, Lymph % (Auto) 21.5, [place] % (Auto) 6.0, Eos % (Auto) 2.6, Baso % (Auto) 0.9, Neut # (Auto) 5.3, Lymph # (Auto) 1.6, [place] # (Auto) 0.5, Eos # (Auto) 0.2, Baso # (Auto) 0.1 07/08/22 13:05: Sodium 141, Potassium 4.0, Chloride 106, Carbon Dioxide 24, Anion Gap 15.0, BUN 15, Creatinine 1.10, Estimated GFR 73, Est GFR ( Amer) 89, Glucose 97, Calcium 8.6 Medical History: Medical History (Updated 07/08/22 @ 12:13 by Sushil Dean JR, MD) Migraine Psoriasis Assessment and Plan Assessment and plan all Dx Assessment and Plan for all problems:: Pharmacokinetic dosing service Objective: Age: 42 yo Serum creatinine: 1.1 mg/dL Height: 69.0 Inches Weight (kg): 127.9 Diagnosis: POST-OP SURGICAL SITE INFECTION Assessment: IBW (kg): 70.70 Dosing wt(kg): 93.6 Estimated Creatinine clearance (ml/min): 87.5 CRCL method: Cockcroft and Gault using ibw(default). Drug selected: Vancomycin Loading dose (mg): 1750 MG Vd (liters): 65.5 (factor used: 0.7 L/kg) Samuel (hr-1): 0.077 Half life (hrs): 9.00 CLvanco=?? 5.043 L/hr Recommended dose: 1500 mg Interval: 12 hrs Infusion time (hrs): 2.0 Predicted peak (mcg/mL): 35.2 Predicted trough (mcg/mL): 16.30 Adjusted body weight was selected for vancomycin dosing. Recommendations: GIVE VANCOMYCIN 1750 MG IV ONCE A LOADING DOSE AND IF ADMITTED RECOMMEND GIVING Vancomycin 1500 mg q 12 hrs with an expected Cpeak of 35.2 mcg/ml and an expected Ctrough of 16.30 mcg/ml TO START 07/09/22 AT 02:30 AUC 0-24 /ALIZA Data: ALIZA 0.5 mcg/mL:?? AUC/ALIZA:? 1189.8 ALIZA 1.0 mcg/mL:?? AUC/ALIZA:? 594.9 --------- ALIZA 1.5 mcg/mL:?? AUC/ALIZA:? 396.6 ALIZA 2.0 mcg/mL:?? AUC/ALIZA:? 297.4 Thank you for the consult
[2022-07-08 14:23] LABS: Coronavirus 19, PCR Not Detected (NotDetected); Influenza A, PCR Not Detected (NotDetected); Influenza B, PCR Not Detected (NotDetected)
--- NOTE | 2022-07-08 16:57 | EXP.ORTH.CON ---
[facility] Disclaimer: The information contained in this section may have been updated after the patient was seen, as this information can be updated by other users. Medical History (Updated 07/08/22 @ 16:45 by Monisha Corona RN) History of anemia History of gastroesophageal reflux (GERD) Migraine Psoriasis Surgical History Hx of surgical amputation of finger Previous back surgery Status post tendon repair Family History Other Hypertension Social History Smoking Status: Never smoker alcohol intake: never current occupational status: employed Travel in the last 8 weeks: None Review of Systems Review of Systems Review of systems:: unable to obtain Constitutional Constitutional: Reports system reviewed and no additional complaints, except as documented Eyes Eyes: Reports system reviewed and no additional complaints, except as documented ENT Ears, Nose, Mouth, and Throat: Reports system reviewed and no additional complaints, except as documented *Cardiovascular Cardiovascular: Reports system reviewed and no additional complaints, except as documented *Respiratory Respiratory: Reports system reviewed and no additional complaints, except as documented *Gastrointestinal Gastrointestinal: Reports system reviewed and no additional complaints, except as documented *Musculoskeletal Musculoskeletal: Reports arthralgias Integumentary/Breasts Skin/Breast: Reports system reviewed and no additional complaints, except as documented *Neurologic Neurologic: Reports system reviewed and no additional complaints, except as documented Psychiatric Psychiatric: Reports system reviewed and no additional complaints, except as documented Endocrine Endocrine: Reports system reviewed and no additional complaints, except as documented Hematologic/Lymphatic Hematologic/Lymphatic: Reports system reviewed and no additional complaints, except as documented Allergic/Immunologic Allergic/Immunologic: Reports system reviewed and no additional complaints, except as documented Meds Home Medications and Allergies Home Medications Medication Instructions Recorded Confirmed Type folic acid 1 mg tablet 1 mg PO DAILY Supplement 06/23/22 07/08/22 History guselkumab 100 mg/mL subcutaneous 100 mg SQ DIRECTED PSORIASIS 06/23/22 07/08/22 History auto-injector (Tremfya) methotrexate sodium 2.5 mg tablet 30 mg PO WEEKLY PSORIASIS 06/23/22 07/08/22 History oxycodone 5 mg tablet 5 mg PO Q4H PRN pain #30 tabs 06/24/22 07/08/22 Rx ondansetron 4 mg disintegrating 4 mg PO Q8H PRN nausea and 07/05/22 07/08/22 Rx tablet vomiting #7 tabs sulfamethoxazole 800 1 tab PO BID abx 07/08/22 07/08/22 History mg-trimethoprim 160 mg tablet (Bactrim DS) New Prescriptions to Start Prescriptions: Allergies Allergy/AdvReac Type Severity Reaction Status Date / Time Latex, Natural Rubber Allergy Mild cooper skin Verified 07/08/22 11:53 cephalexin [From Keflex] AdvReac Mild Vomiting Verified 07/08/22 11:53 Ortho Exam (Inpt) Vital signs and Labs for Last 24 Hours: Temp Pulse Resp BP Pulse Ox 98.4 F 89 20 134/78 98 07/08/22 15:32 07/08/22 15:32 07/08/22 15:32 07/08/22 15:32 07/08/22 12:45 Laboratory Results - last 24 hr 07/08/22 13:05: WBC 7.7, RBC 5.83, Hgb 16.5, Hct 50.6, MCV 86.8, MCH 28.2, MCHC 32.5, RDW 14.2, Plt Count 385, MPV 7.8, Neut % (Auto) 69.0, Lymph % (Auto) 21.5, [place] % (Auto) 6.0, Eos % (Auto) 2.6, Baso % (Auto) 0.9, Neut # (Auto) 5.3, Lymph # (Auto) 1.6, [place] # (Auto) 0.5, Eos # (Auto) 0.2, Baso # (Auto) 0.1 07/08/22 13:05: Sodium 141, Potassium 4.0, Chloride 106, Carbon Dioxide 24, Anion Gap 15.0, BUN 15, Creatinine 1.10, Estimated GFR 73, Est GFR ( Amer) 89, Glucose 97, Calcium 8.6 07/08/22 13:16: SARS-CoV-2 (PCR) Not detected, Influenza A Untype (PCR) Not detected
--- NOTE | 2022-07-08 18:03 | EXP.ANES.I ---
[facility] Anesthesia Record Part I Anesthesia Record I Intake, IV Amount: 1,000 Estimated blood loss (mL): 50 Urine output (mL): 0 Blood Pressure: 144/90 SaO2: 96 Pulse Rate: 100 Respiratory Rate: 12 Temperature: 97 F Patient is:: Awake and Stable Stable to PACU at:: 17:55
--- NOTE | 2022-07-08 18:21 | P.OP_ITS ---
Date of procedure: 07/08/22 Pre-op Diagnosis:: Right heel surgical site infection Post-op Diagnosis:: Same Procedure performed:: 17674: Debridement irrigation of surgical site infection, right heel 26463: Wound vacuum-assisted closure. Surgeon:: Sushil Dean JR, MD [employer] OPERATOR:: Carl Harley Anesthesia: GETA Estimated blood loss (mL): 50 Clinical Note:: 42-year-old male status post minimally invasive Adiel's resection, Achilles debridement, platelet rich plasma injection. He developed turbid drainage, cultures which were obtained in the ER which grew methicillin-resistant staph aureus. He presented to clinic today, was admitted to the hospital. I had a discussion with him regarding further management and after discussion of risk, benefits, alternatives, he was amenable with proceeding with right heel debridement and irrigation, wound vacuum-assisted closure. We discussed the risk and benefits of surgery. Risks included but were not limited to pain, bleeding, infection, damage to adjacent structures, need for further surgery, wound healing complications, loss of limb, . Patient expressed verbal consent and written consent was obtained for the above procedure. Operative findings:: There is no gross purulence noted. Wound vacuum-assisted closure device had good seal Operative note:: Patient was identified in preoperative holding. Operative site was marked in indelible ink. History, physical, consent were reviewed and updated. Patient was surrendered to the anesthesia team, taken to the operative suite, placed prone on a well-padded operative table. Anesthesia was induced. The operative extremity was prepped and draped in the usual sterile fashion. The operative team donned sterile gowns and gloves and a timeout was called. All in attendance agreed regarding the patient's identity, procedure, operative site. Weight-based dose of antibiotics was given prior to incision. No tourniquet was utilized during this case. Using a 15 blade scalpel I debrided a minimal amount of devitalized skin and subcutaneous tissue from his previous medial incision. I extended the incision proximally distally, passed swab specimens into the wound, noted no gross purulence but minimal turbid fluid and blood. I sent the swab specimens for culture. I copiously irrigated the wound, pressurizing saline from a 60 cc syringe through a Matos tip sucker into the lateral aspect of the wound, to flush fluid medially. I did this until the fluid only appeared scantly bloody. At this point, I placed 2-0 nylon to close the proximal and distal aspect of the incision, packed wound VAC sponge into the retrocalcaneal bursal space, and once the wound VAC was completely placed, this is noted to have good seal. Sterile dressings applied. Counts were correct x2. There were no apparent complications. I was present and scrubbed for the entire case. Condition: stable Disposition: PACU Specimens:: Swab specimen sent for culture Complications:: None apparent. Plan for repeat debridement and irrigation in 48 hours. I will likely apply intraosseous antibiotic cement at that time. At that point, we will decide whether to reapply the wound VAC or close the skin.
--- NOTE | 2022-07-08 18:30 | PC.NURSE ---
arrived from surgery by fede
--- NOTE | 2022-07-08 19:19 | SUR.OPER ---
vancomyicin 1 gram given @1737 per Anitha PEREZ. VO given per .
--- NOTE | 2022-07-08 19:30 | SUR.PHASEI ---
1819-detailed report called to Lizette LEIGH. Pt transported via bed per Ghada LEIGH & Alan to 2nd floor. Left in care of Lizette LEIGH @ bedside. Family @ bs. Pt awake and talking.
--- NOTE | 2022-07-08 19:37 | PC.NURSE ---
AOX4, ARRIVED FROM SURGERY AOX4 NOT C/O PAIN. TOLERATING ROOM AIR WELL. NO COMPLAINTS
--- NOTE | 2022-07-08 19:37 | SUR.PHASEI ---
1802-0.5 mg Dilaudid given ivp 1807-0.5mg Dilaudid given ivp 1812-0.5 mg Dilaudid given ivp 1817-0.5 mg Dilaudid given ivp Total-- 2mg Dilaudid given
[2022-07-09] VITALS (7 sets, daily range): BP systolic 103–128; BP diastolic 52–94; PULSE 77–99; RESP 16–19; TEMP 36.3–36.9; O2SAT 92–96; BMI 43.7; BMI 43.9
--- NOTE | 2022-07-09 06:56 | PC.NURSE ---
NO ACUTE CHANGES SINCE PREVIOUS ASSESSMENT. PT HAS SLEPT INTERMITTENTLY. LUNGS ARE CLEAR. C/O PAIN X1 THIS SHIFT AND WAS MEDICATED PER SEP. VSS. PT HAS STATED THIS SHIFT OF HAVING HOT FLASHES. HAS REMAINED AFEBRILE. NO OTHER COMPLAINTS THIS SHIFT. WOUND VAC REMAINS IN PLACE.
--- NOTE | 2022-07-09 07:04 | EXP.ORTH.PN ---
Subjective *Date: 07/09/22 *Time: 07:04 Interval history: Resting comfortably overnight. Ortho Exam (Inpt) Vital signs and Labs for Last 24 Hours: Temp Pulse Resp BP Pulse Ox 98.4 F 94 H 16 103/65 L 92 L 07/09/22 04:00 07/09/22 04:00 07/09/22 04:00 07/09/22 04:00 07/09/22 04:00 Laboratory Results - last 24 hr 07/08/22 13:05: WBC 7.7, RBC 5.83, Hgb 16.5, Hct 50.6, MCV 86.8, MCH 28.2, MCHC 32.5, RDW 14.2, Plt Count 385, MPV 7.8, Neut % (Auto) 69.0, Lymph % (Auto) 21.5, [place] % (Auto) 6.0, Eos % (Auto) 2.6, Baso % (Auto) 0.9, Neut # (Auto) 5.3, Lymph # (Auto) 1.6, [place] # (Auto) 0.5, Eos # (Auto) 0.2, Baso # (Auto) 0.1 07/08/22 13:05: Sodium 141, Potassium 4.0, Chloride 106, Carbon Dioxide 24, Anion Gap 15.0, BUN 15, Creatinine 1.10, Estimated GFR 73, Est GFR ( Amer) 89, Glucose 97, Calcium 8.6 07/08/22 13:16: SARS-CoV-2 (PCR) Not detected, Influenza A Untype (PCR) Not detected, Influenza Type B (PCR) Not detected 07/08/22 13:47: Blood Type O Positive, Antibody Screen Negative I & O for Labs for Last 24 Hours: Intake & Output 07/06/22 07/07/22 07/08/22 07/09/22 23:59 23:59 23:59 23:59 Intake Total 1000 / 1000 Output Total 800 / 800 Balance 1000 / 800 -800 / -800 Weight 0 oz 314 lb 3 oz Microbiology Reports for the Last 24 Hours: Microbiology 07/08/22 17:35 Foot,Right - Abscess Gram Stain - Final Head: Present normocephalic and atraumatic ENT: Present mucous membranes moist Neck: Present normal inspection Respiratory: Present normal respiratory effort and symmetric chest movement; Absent accessory muscle use or respiratory distress Cardiac: Present Reg Rate and Rhythm and radial pulses present GI: Present soft; Absent distention Additional Findings:: Right lower extremity: Dressing clean, dry, intact. Toes warm and well-perfused. Wound vacuum-assisted closure with good seal, minimal serosanguineous output. Assessment and Plan *Assessment and plan (1) Surgical site infection: Status: Acute Category: Medical Code(s): T81.49XA - Infection following a procedure, other surgical site, initial encounter Plan 42-year-old male status post right minimally invasive calcaneal Adiel's resection, insertional Achilles Tenex with platelet rich plasma with postoperative wound infection, cultures positive for MRSA. He is status post debridement irrigation with wound vacuum-assisted closure 07/08/2022. Plan for repeat debridement and irrigation tomorrow, anticipate antibiotic cement placement intraosseously as well as repeat wound vacuum-assisted closure in order to help close the retrocalcaneal bursal space.
--- NOTE | 2022-07-09 09:24 | EXP.HP ---
History of Present Illness *Admission Date: 07/08/22 *Reason for visit:: post op wound infection *History of present illness: 42 year old male who had surgery on right heel at [facility] on 06/24/[address] Dean, see op note, for post op wound infection. Patient states he did well for about a week after surgery but then began to have some redness of the skin and pain at the surgical site. He came to the ER on 07/04/22, see ER note, and was diagnosed with a post op wound infection. Culture was obtained that day and antibiotics were changed to Bactrim DS. On 07/08/22 patient was seen in Dr. Dean's office. He had worsening heel pain and the culture was reported as MRSA so patient was sent to the ER. He was started on IV Vancomycin and was taken back to the OR last night for wound debridement and wound vac placement. Patient states he feels much better now. [facility] Disclaimer: The information contained in this section may have been updated after the patient was seen, as this information can be updated by other users. 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 Surgical History Hx of surgical amputation of finger Previous back surgery Status post tendon repair Family History Other Hypertension Social History Smoking Status: Never smoker alcohol intake: never current occupational status: employed Travel in the last 8 weeks: None Review of Systems Constitutional Constitutional: Denies poor appetite Eyes Eyes: Denies change in vision ENT Ears, Nose, Mouth, and Throat: Denies abnormal hearing and Denies dizziness *Cardiovascular Cardiovascular: Denies chest pain *Respiratory Respiratory: Denies cough *Gastrointestinal Gastrointestinal: Denies abdominal pain *Genitourinary Genitourinary: Denies difficulty urinating *Musculoskeletal Musculoskeletal: Denies atrophy Integumentary/Breasts Skin/Breast: Reports as per HPI *Neurologic Neurologic: Denies abnormal hearing and Denies dizziness Meds Home Medications and Allergies Home Medications Medication Instructions Recorded Confirmed Type folic acid 1 mg tablet 1 mg PO DAILY Supplement 06/23/22 07/08/22 History guselkumab 100 mg/mL subcutaneous 100 mg SQ DIRECTED PSORIASIS 06/23/22 07/09/22 History auto-injector (Tremfya) methotrexate sodium 2.5 mg tablet 30 mg PO WEEKLY PSORIASIS 06/23/22 07/08/22 History oxycodone 5 mg tablet 5 mg PO Q4H PRN pain #30 tabs 06/24/22 07/08/22 Rx ondansetron 4 mg disintegrating 4 mg PO Q8H PRN nausea and 07/05/22 07/08/22 Rx tablet vomiting #7 tabs sulfamethoxazole 800 1 tab PO BID abx 07/08/22 07/08/22 History mg-trimethoprim 160 mg tablet (Bactrim DS) New Prescriptions to Start Prescriptions: Allergies Allergy/AdvReac Type Severity Reaction Status Date / Time Latex, Natural Rubber Allergy Mild cooper skin Verified 07/08/22 11:53 cephalexin [From Keflex] AdvReac Mild Vomiting Verified 07/08/22 11:53 Exam Data for Last 24 hours Vital signs and Labs for Last 24 Hours: Temp Pulse Resp BP Pulse Ox 97.9 F 99 H 18 128/94 H 93 L 07/09/22 07:47 07/09/22 07:47 07/09/22 07:47 07/09/22 07:47 07/09/22 07:47 Laboratory Results - last 24 hr 07/08/22 13:05: WBC 7.7, RBC 5.83, Hgb 16.5, Hct 50.6, MCV 86.8, MCH 28.2, MCHC 32.5, RDW 14.2, Plt Count 385, MPV 7.8, Neut % (Auto) 69.0, Lymph % (Auto) 21.5, [place] % (Auto) 6.0, Eos % (Auto) 2.6, Baso % (Auto) 0.9, Neut # (Auto) 5.3, Lymph # (Auto) 1.6, [place] # (Auto) 0.5, Eos # (Auto) 0.2, Baso # (Auto) 0.1 07/08/22 13:05: Sodium 141, [place]
--- NOTE | 2022-07-09 09:36 | P.CONPHA_ITS ---
Pharmacy Consult Date: 07/09/22 Time: 09:36 Referring provider: DR. KNOWLES Reason for Consult:: VANCOMYCIN DOSING Allergies Allergy/AdvReac Type Severity Reaction Status Date / Time Latex, Natural Rubber Allergy Mild cooper skin Verified 07/08/22 11:53 cephalexin [From Keflex] AdvReac Mild Vomiting Verified 07/08/22 11:53 Home Medications Medication Instructions Recorded Confirmed Type folic acid 1 mg tablet 1 mg PO DAILY Supplement 06/23/22 07/08/22 History guselkumab 100 mg/mL subcutaneous 100 mg SQ DIRECTED PSORIASIS 06/23/22 07/09/22 History auto-injector (Tremfya) methotrexate sodium 2.5 mg tablet 30 mg PO WEEKLY PSORIASIS 06/23/22 07/08/22 History oxycodone 5 mg tablet 5 mg PO Q4H PRN pain #30 tabs 06/24/22 07/08/22 Rx ondansetron 4 mg disintegrating 4 mg PO Q8H PRN nausea and 07/05/22 07/08/22 Rx tablet vomiting #7 tabs sulfamethoxazole 800 1 tab PO BID abx 07/08/22 07/08/22 History mg-trimethoprim 160 mg tablet (Bactrim DS) New Prescriptions to Start Prescriptions: Height: 1.8 m Weight: 142.513 kg Laboratory Results:: Laboratory Results - last 24 hr 07/08/22 13:05: WBC 7.7, RBC 5.83, Hgb 16.5, Hct 50.6, MCV 86.8, MCH 28.2, MCHC 32.5, RDW 14.2, Plt Count 385, MPV 7.8, Neut % (Auto) 69.0, Lymph % (Auto) 21.5, [place] % (Auto) 6.0, Eos % (Auto) 2.6, Baso % (Auto) 0.9, Neut # (Auto) 5.3, Lymph # (Auto) 1.6, [place] # (Auto) 0.5, Eos # (Auto) 0.2, Baso # (Auto) 0.1 07/08/22 13:05: Sodium 141, Potassium 4.0, Chloride 106, Carbon Dioxide 24, Anion Gap 15.0, BUN 15, Creatinine 1.10, Estimated GFR 73, Est GFR ( Amer) 89, Glucose 97, Calcium 8.6 07/08/22 13:16: SARS-CoV-2 (PCR) Not detected, Influenza A Untype (PCR) Not detected, Influenza Type B (PCR) Not detected 07/08/22 13:47: Blood Type O Positive, Antibody Screen Negative Medical History: Medical History (Updated 07/08/22 @ 16:45 by Monisha Corona RN) History of anemia History of gastroesophageal reflux (GERD) Migraine Psoriasis Assessment and Plan Assessment and plan all Dx Assessment and Plan for all problems:: Pharmacokinetic dosing service Age: 42 yo Serum creatinine: 1.1 mg/dL Height: 70.9 Inches Weight (kg): 142.5 Assessment: IBW (kg): 75.07 Dosing wt(kg): 142.5 Estimated Creatinine clearance (ml/min): 92.9 CRCL method: Cockcroft and Gault using ibw(default). Drug selected: Vancomycin Loading dose (mg): 0 Vd (liters): 114.0 (factor used: 0.8 L/kg) Samuel (hr-1): 0.082 Half life (hrs): 8.45 Recommended dose: 2500 mg Interval: 12 hrs Infusion time (hrs): 2.0 Predicted peak (mcg/mL): 32.3 Predicted trough (mcg/mL): 14.23 Total body weight is being used for vancomycin dosing. Recommendations: Give Vancomycin 2500 mg q 12 hrs with an expected Cpeak of 32.3 mcg/ml and an expected Ctrough of 14.23 mcg/ml. ----Vanco only - ignore for aminoglycosides----- CLvanco= 9.35 L/hr AUC 0-24 /ALIZA Data: ALIZA 0.5 mcg/mL: AUC/ALIZA: 1069.5 ALIZA 1.0 mcg/mL: AUC/ALIZA: 534.8 --------- ALIZA 1.5 mcg/mL: AUC/ALIZA: 356.5 ALIZA 2.0 mcg/mL: AUC/ALIZA: 267.4
--- NOTE | 2022-07-09 23:06 | PC.NURSE ---
He is A&Ox4. He denies pain. Wound vac and DSG in place on right heel. He states his last BM was 3 days ago. He has a scooter in his room and states he is able to transport to the bathroom with it. He has been voiding per urinal. Urine is yellow, clear.
[2022-07-10] VITALS (20 sets, daily range): BP systolic 100–146; BP diastolic 60–93; PULSE 63–86; RESP 12–22; TEMP 36.1–37.1; O2SAT 94–99
--- NOTE | 2022-07-10 07:59 | EXP.ACUTE.PN ---
Subjective *Date: 07/10/22 *Time: 07:59 Interval history: Patient had a good day yesterday, no new complaints. Medical Exam Vital signs and Labs for Last 24 Hours: Vital Signs Temp Pulse Resp BP Pulse Ox 07/10/22 04:00 98.4 F 76 18 124/67 95 07/10/22 00:00 97.8 F 65 18 120/73 94 L 07/09/22 20:00 96 07/09/22 20:00 98.3 F 77 18 112/69 96 07/09/22 15:15 97.8 F 91 H 17 108/52 L 95 07/09/22 11:30 97.4 F L 95 H 19 107/58 L 93 L Intake and Output 07/09/22 07/09/22 07/10/22 15:59 23:59 07:59 Intake Total 480 / 3736 1682 / 3736 270 / 270 Output Total 850 / 3040 990 / 3040 Balance -370 / 696 692 / 696 270 / 270 Intake: Intake, Oral Amount 480 / 1440 600 / 1440 Intake, Other Amount 20 / 20 Intake, Total IV Amount 250 / 250 Vancomycin HCl 2,500 mg In 0.9 250 / 250 % Sodium Chloride 250 ml @ 125 mls/hr IV Q12H VICKY Rx#:[id number] Infusion Intake 1082 / 1082 0.9 % Sodium Chloride 1,000 ml 1082 / 1082 @ 100 mls/hr IV .Q10H VICKY Rx#: [id number] Output: Output, Urine Amount 850 / 3040 990 / 3040 Other: Intake, Other Source Saline Solution Number of Unmeasured Voids 0 0 Weight 314 lb 3 oz I & O for Labs for Last 24 Hours: Intake & Output 07/07/22 07/08/22 07/09/22 07/10/22 23:59 23:59 23:59 23:59 Intake Total 1000 / 1000 3736 / 3736 270 / 270 Output Total 3040 / 3040 Balance 1000 / 800 696 / 696 270 / 270 Weight 0 oz 314 lb 3 oz Microbiology Reports for the Last 24 Hours: Microbiology 07/08/22 17:35 Foot,Right - Abscess Gram Stain - Final 07/08/22 17:35 Foot,Right - Abscess Wound Culture - Preliminary Constitutional: Present no acute distress Respiratory: Present CTA bilaterally Cardiac: Present Reg Rate and Rhythm Comment:: Wound vac and Shaquille wrap on right heel Assessment and Plan *Assessment and plan (1) Surgical site infection: Status: Acute Category: Medical Code(s): T81.49XA - Infection following a procedure, other surgical site, initial encounter (2) MRSA infection: Status: Acute Category: Medical Code(s): A49.02 - Methicillin resistant Staphylococcus aureus infection, unspecified site (3) Open wound of right heel: Status: Acute Category: Medical Code(s): S91.301A - Unspecified open wound, right foot, initial encounter (4) GERD (gastroesophageal reflux disease): Status: Acute Category: Medical Code(s): K21.9 - Gastro-esophageal reflux disease without esophagitis Plan Patient back to OR today, continue current treatment.
--- NOTE | 2022-07-10 08:26 | P.PN_ITS ---
Subjective *Date: 07/10/22 *Time: 08:26 Ortho Exam (Inpt) Vital signs and Labs for Last 24 Hours: Temp Pulse Resp BP Pulse Ox 98.4 F 76 18 124/67 95 07/10/22 04:00 07/10/22 04:00 07/10/22 04:00 07/10/22 04:00 07/10/22 04:00 I & O for Labs for Last 24 Hours: Intake & Output 07/07/22 07/08/22 07/09/22 07/10/22 23:59 23:59 23:59 23:59 Intake Total 1000 / 1000 3736 / 3736 270 / 270 Output Total 3040 / 3040 Balance 1000 / 800 696 / 696 270 / 270 Weight 0 oz 314 lb 3 oz Microbiology Reports for the Last 24 Hours: Microbiology 07/08/22 17:35 Foot,Right - Abscess Gram Stain - Final 07/08/22 17:35 Foot,Right - Abscess Wound Culture - Preliminary Head: Present normocephalic and atraumatic ENT: Present mucous membranes moist Neck: Present normal inspection Respiratory: Present normal respiratory effort and symmetric chest movement; Absent accessory muscle use or respiratory distress Cardiac: Present Reg Rate and Rhythm and radial pulses present GI: Present soft; Absent distention Additional Findings:: Right lower extremity: Dressing clean, dry, intact. Toes warm and well- perfused. Wound vacuum-assisted closure with good seal, minimal serosanguineous output. When removed there is serosanguinous drainage, no gross purulence. Assessment and Plan *Assessment and plan (1) Surgical site infection: Status: Acute Category: Medical Code(s): T81.49XA - Infection following a procedure, other surgical site, initial encounter Plan I had a discussion with him regarding further management. After discussion of risk, benefits, alternatives, plan for repeat right foot debridement irrigation, antibiotic cement placement, wound vacuum-assisted closure. He is amenable with the plan. We discussed the risk and benefits of surgery. Risks included but were not limited to pain, bleeding, infection, damage to adjacent structures, need for further surgery, wound healing complications, loss of limb, . Patient expressed verbal consent and written consent was obtained for the above procedure.
--- NOTE | 2022-07-10 09:17 | EXP.OP.NOTE ---
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 Intraosseous antibiotic cement placed. Wound VAC had good seal. Operative note:: Patient was identified in preoperative holding. Operative site was marked in indelible ink. History, physical, consent were reviewed and updated. Patient was surrendered to the anesthesia team, taken to the operative suite, placed prone on a well-padded operative table. Anesthesia was induced. The operative extremity was prepped and draped in the usual sterile fashion. The operative team donned sterile gowns and gloves and a timeout was called. All in attendance agreed regarding the patient's identity, procedure, operative site. Weight-based dose of antibiotics was given prior to incision. No tourniquet was utilized. I removed his previous sutures, thoroughly irrigated the surgical site, noted some serosanguineous drainage but no gross purulence. Overall the wound appeared clean. I mixed pro dense antibiotic cement impregnated with vancomycin and gentamicin, injected this under fluoroscopic guidance into the dorsal calcaneal tuberosity. I then applied a wound vacuum-assisted closure device which tracked into the retrocalcaneal area, this is noted to have good seal. Wound measures approximately 0.5 cm x 0.5 cm x 2 cm. Wounds were closed in anatomic layers. Sterile dressings applied. Counts were correct x2. There were no apparent complications. I was present and scrubbed for the entire case. Condition: stable Disposition: PACU Specimens:: None Complications:: None apparent.
--- NOTE | 2022-07-10 09:24 | EXP.ANES.I ---
[facility] Anesthesia Record Part I Anesthesia Record I Intake, IV Amount: 700 Estimated blood loss (mL): 0 Urine output (mL): 0 Blood Pressure: 146/93 SaO2: 96 Pulse Rate: 68 Respiratory Rate: 12 Temperature: 97.2 F Patient is:: Awake and Stable Stable to PACU at:: 09:15
--- NOTE | 2022-07-10 09:25 | XR_ITS ---
PROCEDURE INFORMATION: Exam: XR Right Ankle Exam date and time: 07/10/2022 9:25 AM Age: 42 years old Clinical indication: Other: Infection; Prior surgery; Surgery date: 3-7 days post-operative; Surgery type: RT ankle; Patient HX: I&d; Additional info: I d TECHNIQUE: Imaging protocol: Radiologic exam of the Right ankle. Views: 1 or 2 views. COMPARISON: SD XR ANKLE RT 2V 06/24/2022 1:30 PM FINDINGS: Bones/joints: See below. Soft tissues: See below. Other findings: Three intraoperative fluoroscopic images are submitted. Please refer to the operative note for detail. IMPRESSION: Three intraoperative fluoroscopic images are submitted. Please refer to the operative note for detail.
--- NOTE | 2022-07-10 10:12 | PC.NURSE ---
SPOKE WITH MARAL IN PHARMACY REGARDING VANC DOSE. PER REPORT PT RECEIVED 2500 MG VANC IV INTRAOPERATIVELY AT APPROX. 0800. PER PHARMACY VANC DOSE FOR 1100 CAN BE HELD.
[2022-07-10 10:40] LABS: Basophils # 0.1 K/mm3 (0-0.2); Basophils % 0.7 % (0.1-2.0); Eosinophils # 0.1 K/mm3 (0.0-0.4); Eosinophils % 1.4 % (0.1-12.0); Hematocrit 46.7 % (42.0-52.0); Hemoglobin 14.8 g/dL (14.1-18.0); Lymphocytes # 1.8 K/mm3 (0.7-4.5); Lymphocytes % 19.1 % (10-50); Mean Corpuscular HGB Conc 31.8 g/dL (31.8-35.4); Mean Corpuscular Hemoglobin 27.2 pg (27.0-31.2); Mean Corpuscular Volume 85.7 fl (80-94); Mean Platelet Volume 7.8 fl (7.4-10.4); Monocytes # 0.4 K/mm3 (0.1-1.0); Neutrophils # 7.1 K/mm3 (1.8-7.8); Neutrophils % 74.9 % (37.0-80.0); Platelet Count 358 K/mm3 (142-424); Red Blood Count 5.44 M/mm3 (4.60-6.20); White Blood Count 9.4 K/mm3 (4.8-10.8)
[2022-07-10 10:51] LABS: Chloride 108 mmol/L (98-107)
[2022-07-10 10:52] LABS: Potassium 4.2 mmoL/L (3.5-5.1); Sodium 140 mmol/L (136-145)
[2022-07-10 10:54] LABS: Blood Urea Nitrogen 18 mg/dl (9-20); Creatinine Clearance Estimated 90 mL/min (50-200); Estimated Glomerular Filt Rate 73 ml/min (>60); GFR (African American) 89 ML/MIN (>60)
[2022-07-10 10:55] LABS: Anion Gap 12.2 mEq/L (5-15); Calcium 8.2 mg/dl (8.4-10.2); Carbon Dioxide 24 mmol/L (22.0-30.0); Glucose 103 mg/dl (74-100)
--- NOTE | 2022-07-10 13:22 | PC.NURSE ---
PT C/O PAIN 02/16 FOLLOWING GETTING UP TO CHAIR. CALLED DR NUNEZ CELL REPAIRER FOR DR KNOWLES AND REPORTED PT CONDITION. DR NUNEZ OK'D FOR THIS RN TO ADMIN PRN OXYCODONE DOSE EARLY.
--- NOTE | 2022-07-10 20:04 | PC.NURSE ---
SPOKE WITH NIGHT WATCH PHARMACIST Jameson FELIZ RE VANCOMYCIN ORDERED FOR TONIGHT. WILL NOT NEED TROUGH TIL TOMORROW AND SAFE TO GIVE VANC DOSE TONIGHT..
--- NOTE | 2022-07-10 22:20 | PC.NURSE ---
Tania FELIZ NIGHT WATCH PHARMACIST CALLED IN RE TO VANC DOSE. 1 GRAM VANCOMYCIN VIAL OBTAINED FROM THE ICU, DILUTED, AND INJECTED INTO 1.5 GRAM VANCOMYCIN/300 ML BAG TO EQUAL 2500 MG DOSE.
[2022-07-11] VITALS: BP 126/68; PULSE 74; RESP 17; TEMP 36.6; O2SAT 96
[2022-07-11 04:00] VITALS: BP 126/78; PULSE 72; RESP 16; TEMP 36.6; O2SAT 96; BMI 44.1
--- NOTE | 2022-07-11 05:08 | PC.NURSE ---
MEDICATED X 1 WITH OXYCODONE 5 MG PO FOR PAIN 11/16 AT 2051. HAS SLEPT WELL. RECIEVED 2ND DOSE OF VANCOMYCIN WITHOUT DIFFICULTY. DRSG AND DERIK WRAP TO RIGHT FOOT C/D/I. WOUND VAC IN PLACE AND FUNCTIONING. WIGGLES TOES. TOES WARM AND PINK. DENIES NUMBNESS OR LOS. REMAINS IN CONTACT ISOLATION FOR MRSA.
--- NOTE | 2022-07-11 05:34 | PC.NURSE ---
AT 0521 PATIENT REQUESTED AND RECEIVED OXYCODONE 5 MG PO FOR THROBBING RIGHT FOOT PAIN 5.
[2022-07-11 08:00] VITALS: BP 136/86; PULSE 70; RESP 18; TEMP 36.6; O2SAT 99
--- NOTE | 2022-07-11 08:01 | EXP.PN ---
Subjective *Date: 07/11/22 *Time: 08:37 Interval history: Had second surgery yesterday. See note. He thinks it went well. He is eating without difficulty. His big complaint is constipation. We will start on MiraLAX. He denies chest pain and shortness of breath. He is out of bed with this rolling walker to the bathroom without problems. He did sleep. His pain medicine is adequate. 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 Post-op Diagnosis:: Same Procedure performed:: 12586: debridement irrigation of surgical site infection 06557: Antibiotic cement placement 66215: Wound vacuum-assisted closure Surgeon:: Sushil Dean JR, MD Exam Data for Last 24 hours Vital signs and Labs for Last 24 Hours: Temp Pulse Resp BP Pulse Ox 97.9 F 72 16 126/78 96 07/11/22 04:00 07/11/22 04:00 07/11/22 04:00 07/11/22 04:00 07/11/22 04:00 Laboratory Results - last 24 hr 07/10/22 10:22: WBC 9.4, RBC 5.44, Hgb 14.8, Hct 46.7, MCV 85.7, MCH 27.2, MCHC 31.8, RDW 14.0, Plt Count 358, MPV 7.8, Neut % (Auto) 74.9, Lymph % (Auto) 19.1, [place] % (Auto) 4.0, Eos % (Auto) 1.4, Baso % (Auto) 0.7, Neut # (Auto) 7.1, Lymph # (Auto) 1.8, [place] # (Auto) 0.4, Eos # (Auto) 0.1, Baso # (Auto) 0.1 07/10/22 10:22: Sodium 140, Potassium 4.2, Chloride 108 H, Carbon Dioxide 24, Anion Gap 12.2, BUN 18, Creatinine 1.10, Estimated Creat Clear 90, Estimated GFR 73, Est GFR ( Amer) 89, Glucose 103 H, Calcium 8.2 L I & O for Last 24 hours: Intake & Output 07/08/22 07/09/22 07/10/22 07/11/22 11:59 11:59 11:59 11:59 Intake Total 2574 / 2574 3132 / 3132 660 / 660 Output Total 1600 / 1600 1440 / 1440 800 / 800 Balance 974 / 974 1692 / 1692 -140 / -140 Weight 314 lb 3 oz 315 lb 8 oz Microbiology Reports for the Last 24 Hours: Microbiology 07/08/22 17:35 Foot,Right - Abscess Gram Stain - Final 07/08/22 17:35 Foot,Right - Abscess Wound Culture - Preliminary Gram Positive Cocci Constitutional Constitutional: no acute distress *Routine Respiratory Exam Respiratory: Present CTA bilaterally (Anteriorly and posteriorly) *Routine Cardiovascular Exam Cardiovascular: Present RRR *Routine Abdominal Exam Abdominal: Present soft and normoactive bowel sounds; Absent tenderness or distended *Routine Extremities Exam Extremities: Absent edema Comments: Right foot dressing clean and dry. Wound VAC in place. Left lower extremity without edema. *Routine Neurological Exam Neurological: Present alert and oriented X3 Assessment and Plan *Assessment and plan (1) Surgical site infection: Status: Acute Category: Medical Code(s): T81.49XA - Infection following a procedure, other surgical site, initial encounter (2) MRSA infection: Status: Acute Category: Medical Code(s): A49.02 - Methicillin resistant Staphylococcus aureus infection, unspecified site (3) Constipation: Status: Acute Category: Medical Code(s): K59.00 - Constipation, unspecified (4) GERD (gastroesophageal reflux disease): Status: Acute Category: Medical Code(s): K21.9 - Gastro-esophageal reflux disease without esophagitis (5) Open wound of right heel: Status: Acute Category: Medical Code(s): S91.301A - Unspecified open wound, right foot, initial encounter Plan Continue postop care as per surgeon. Patient is currently receiving vancomycin IV. We will add MiraLAX for constipation. Dr. Burkett entry - Saw patient, agree with above note. Will order a PICC line today. Pt will need to continue IV Vancomycin treatment as an outpatient.
--- NOTE | 2022-07-11 08:39 | XR_ITS ---
PROCEDURE INFORMATION: Exam: XR Chest Exam date and time: 07/11/2022 10:37 AM Age: 42 years old Clinical indication: Device placement; Picc; Additional info: Confirm picc line placement TECHNIQUE: Imaging protocol: Radiologic exam of the chest. Views: 1 view. COMPARISON: ABDPELWO CT abdomen pelvis wo con 05/10/2018 10:43 PM FINDINGS: Tubes, catheters and devices: There is a right-sided approach PICC line with its tip projected over the distal superior vena cava. Lungs: No evidence of pneumonia or interstitial edema. Pleural spaces: Unremarkable. No pleural effusion. No pneumothorax. Heart/Mediastinum: Unremarkable. No cardiomegaly. Bones/joints: Unremarkable. IMPRESSION: 1. There is a right-sided approach PICC line with its tip projected over the distal superior vena cava. 2. No evidence of pneumonia or interstitial edema.
--- NOTE | 2022-07-11 09:28 | P.PN_ITS ---
Subjective *Date: 07/11/22 *Time: 09:28 Ortho Exam (Inpt) Vital signs and Labs for Last 24 Hours: Temp Pulse Resp BP Pulse Ox 97.8 F 70 18 136/86 99 07/11/22 08:00 07/11/22 08:00 07/11/22 08:00 07/11/22 08:00 07/11/22 08:00 Laboratory Results - last 24 hr 07/10/22 10:22: WBC 9.4, RBC 5.44, Hgb 14.8, Hct 46.7, MCV 85.7, MCH 27.2, MCHC 31.8, RDW 14.0, Plt Count 358, MPV 7.8, Neut % (Auto) 74.9, Lymph % (Auto) 19.1, [place] % (Auto) 4.0, Eos % (Auto) 1.4, Baso % (Auto) 0.7, Neut # (Auto) 7.1, Lymph # (Auto) 1.8, [place] # (Auto) 0.4, Eos # (Auto) 0.1, Baso # (Auto) 0.1 07/10/22 10:22: Sodium 140, Potassium 4.2, Chloride 108 H, Carbon Dioxide 24, Anion Gap 12.2, BUN 18, Creatinine 1.10, Estimated Creat Clear 90, Estimated GFR 73, Est GFR ( Amer) 89, Glucose 103 H, Calcium 8.2 L I & O for Labs for Last 24 Hours: Intake & Output 07/08/22 07/09/22 07/10/22 07/11/22 23:59 23:59 23:59 23:59 Intake Total 1000 / 1000 3736 / 3736 1330 / 1330 660 / 660 Output Total 3040 / 3040 300 / 300 500 / 500 Balance 1000 / 800 696 / 696 1030 / 1030 160 / 160 Weight 0 oz 314 lb 3 oz 315 lb 8 oz Microbiology Reports for the Last 24 Hours: Microbiology 07/08/22 17:35 Foot,Right - Abscess Gram Stain - Final 07/08/22 17:35 Foot,Right - Abscess Wound Culture - Preliminary Gram Positive Cocci Head: Present normocephalic and atraumatic ENT: Present mucous membranes moist Neck: Present normal inspection Respiratory: Present normal respiratory effort and symmetric chest movement; Absent accessory muscle use or respiratory distress Cardiac: Present Reg Rate and Rhythm and radial pulses present GI: Present soft; Absent distention Additional Findings:: Right lower extremity: Dressing clean, dry, intact, wound vacuum-assisted closure with adequate seal, minimal serosanguineous output. Assessment and Plan *Assessment and plan (1) Surgical site infection: Status: Acute Category: Medical Code(s): T81.49XA - Infection following a procedure, other surgical site, initial encounter Plan 42-year-old male with right heel surgical site infection, suspicion for calcaneal osteomyelitis, status post debridement, irrigation, wound vacuum- assisted closure x2, antibiotic cement placement July 10, 2022. Protected weightbearing as tolerated in boot. Agree with plan for PICC line/vancomycin therapy. Would plan to have him follow-up with Dr. Rubens Torres in [place] for long-term antibiotic management. If discharged today, plan to follow-up in my clinic in [place] on July 12 for wound vacuum-assisted closure change. We will follow-up again this Monday, July 15, 2022 in [place] for an additional wound VAC change.
[2022-07-11 11:02] VITALS: BP 140/91; PULSE 73; RESP 18; TEMP 36.6; O2SAT 98
[2022-07-11 12:10] LABS: Chloride 106 mmol/L (98-107); Potassium 3.6 mmoL/L (3.5-5.1); Sodium 139 mmol/L (136-145)
[2022-07-11 12:13] LABS: Blood Urea Nitrogen 16 mg/dl (9-20); Creatinine Clearance Estimated 124 mL/min (50-200); Estimated Glomerular Filt Rate 106 ml/min (>60); GFR (African American) 128 ML/MIN (>60)
[2022-07-11 12:14] LABS: Anion Gap 9.6 mEq/L (5-15); Calcium 7.9 mg/dl (8.4-10.2); Carbon Dioxide 27 mmol/L (22.0-30.0); Glucose 109 mg/dl (74-100)
--- NOTE | 2022-07-11 12:18 | PC.NURSE ---
1150- Spoke to MD Burkett to clarify chest x-ray report. states that PICC line is in proper position for use. Relayed message to floor nurse Jameson Rodriguez RN.
[2022-07-11 12:28] LABS: Vancomycin,Trough 10.7 ug/mL (5.0-10.0)
--- NOTE | 2022-07-11 14:57 | EXP.ANES.II ---
[facility] Anesthesia Record Part II Anesthesia Record Part II Discharge Time: 09:44 (07/10/22) Destination: Medical Surgical Department PACU nurse assessment reviewed?: Yes Patient Condition:: Good Anesthesia Complications:: None Swallowing reflex intact?: Yes Cyanosis?: No Blood Pressure: 133/92 Pulse Rate: 66 Temperature: 97 F Mental Status: Alert & Oriented Pain level:: 1 Nausea and/or vomitting:: None Intake, IV Amount: 0
[2022-07-11 14:58] VITALS: BP 133/92; PULSE 66; TEMP 36.1
[2022-07-11 18:25] LABS: Vancomycin,Peak 19.6 ug/ml (11-39)
[2022-07-11 20:00] VITALS: BP 120/72; PULSE 74; RESP 16; TEMP 36.6; O2SAT 97
[2022-07-12 04:00] VITALS: BP 139/91; PULSE 82; RESP 16; TEMP 36.6; O2SAT 95; BMI 43.8
--- NOTE | 2022-07-12 07:30 | PC.NURSE ---
Pt had no c/o pain throughout night. Wound vac in place draining serosang fluid. Call light within reach.
[2022-07-12 08:00] VITALS: BP 140/90; PULSE 58; RESP 18; TEMP 36.6; O2SAT 98
--- NOTE | 2022-07-12 08:04 | EXP.PN ---
Subjective *Date: 07/12/22 *Time: 08:45 Interval history: He sleeps very little. He is taking very little pain medicine for his right foot. He does not feel like eating much this morning possibly due to some nausea. Bowels did move a little yesterday. He denies chest pain and shortness of breath. He really does want to go home. PICC line placed yesterday. Exam Data for Last 24 hours Vital signs and Labs for Last 24 Hours: Temp Pulse Resp BP Pulse Ox 98 F 82 16 139/91 H 95 07/12/22 04:00 07/12/22 04:00 07/12/22 04:00 07/12/22 04:00 07/12/22 04:00 Laboratory Results - last 24 hr 07/11/22 11:50: Vancomycin Trough 10.7 H 07/11/22 11:50: Sodium 139, Potassium 3.6, Chloride 106, Carbon Dioxide 27, Anion Gap 9.6, BUN 16, Creatinine 0.80 D, Estimated Creat Clear 124, Estimated GFR 106, Est GFR ( Amer) 128 D, Glucose 109 H, Calcium 7.9 L 07/11/22 17:24: Vancomycin Peak 19.6 I & O for Last 24 hours: Intake & Output 07/09/22 07/10/22 07/11/22 07/12/22 11:59 11:59 11:59 11:59 Intake Total 2574 / 2574 3132 / 3132 1020 / 1020 960 / 960 Output Total 1600 / 1600 1440 / 1440 1200 / 1200 1600 / 1600 Balance 974 / 974 1692 / 1692 -180 / -180 -640 / -640 Weight 314 lb 3 oz 315 lb 8 oz 313 lb 4.8 oz Microbiology Reports for the Last 24 Hours: Microbiology 07/08/22 17:35 Foot,Right - Abscess Gram Stain - Final 07/08/22 17:35 Foot,Right - Abscess Wound Culture - Final Staphylococcus aureus Constitutional Constitutional: no acute distress *Routine Respiratory Exam Respiratory: Present CTA bilaterally *Routine Cardiovascular Exam Cardiovascular: Present RRR *Routine Abdominal Exam Abdominal: Present soft and normoactive bowel sounds; Absent tenderness or distended *Routine Extremities Exam Extremities: Absent edema Comments: Right foot dressing clean and dry *Routine Neurological Exam Neurological: Present alert and oriented X3 Assessment and Plan *Assessment and plan (1) Surgical site infection: Status: Acute Category: Medical Code(s): T81.49XA - Infection following a procedure, other surgical site, initial encounter (2) GERD (gastroesophageal reflux disease): Status: Acute Category: Medical Code(s): K21.9 - Gastro-esophageal reflux disease without esophagitis (3) Constipation: Status: Acute Category: Medical Code(s): K59.00 - Constipation, unspecified (4) MRSA infection: Status: Acute Category: Medical Code(s): A49.02 - Methicillin resistant Staphylococcus aureus infection, unspecified site (5) Postoperative follow-up: Status: Acute Category: Medical Code(s): Z09 - Encounter for follow-up examination after completed treatment for conditions other than malignant neoplasm (6) Open wound of right heel: Status: Acute Category: Medical Code(s): S91.301A - Unspecified open wound, right foot, initial encounter Plan As per orthopedics 07/11/2022: 42-year-old male with right heel surgical site infection, suspicion for calcaneal osteomyelitis, status post debridement, irrigation, wound vacuum-assisted closure x2, antibiotic cement placement July 10, 2022. Protected weightbearing as tolerated in boot. Agree with plan for PICC line/vancomycin therapy. Would plan to have him follow-up with Dr. Rubens Torres in [place] for long-term antibiotic management. If discharged today, plan to follow-up in my clinic in [place] on July 12 for wound vacuum-assisted closure change. We will follow-up again this Monday, July 15, 2022 in [place] for an additional wound VAC change. Patient will have wound VAC changed today here at [facility]. Patient prefers to have all wound VAC changes in [place]. He will go home on IV Vanc. PICC line is in place. Dr. Burkett entry - Saw patient, agree with above note.
--- NOTE | 2022-07-12 10:11 | EXP.PHA.CONS ---
Pharmacy Consult Date: 07/12/22 Time: 10:11 Referring provider: DR. KNOWLES Reason for Consult:: VANCOMYCIN LEVEL AND DOSE CHANGE Allergies Allergy/AdvReac Type Severity Reaction Status Date / Time Latex, Natural Rubber Allergy Mild cooper skin Verified 07/08/22 11:53 cephalexin [From Keflex] AdvReac Mild Vomiting Verified 07/08/22 11:53 Home Medications Medication Instructions Recorded Confirmed Type folic acid 1 mg tablet 1 mg PO DAILY Supplement 06/23/22 07/08/22 History guselkumab 100 mg/mL subcutaneous 100 mg SQ DIRECTED PSORIASIS 06/23/22 07/09/22 History auto-injector (Tremfya) methotrexate sodium 2.5 mg tablet 30 mg PO WEEKLY PSORIASIS 06/23/22 07/08/22 History sulfamethoxazole 800 1 tab PO BID abx 07/08/22 07/08/22 History mg-trimethoprim 160 mg tablet (Bactrim DS) New Prescriptions to Start Prescriptions: Height: 1.8 m Weight: 142.11 kg Laboratory Results:: Laboratory Results - last 24 hr 07/11/22 11:50: Vancomycin Trough 10.7 H 07/11/22 11:50: Sodium 139, Potassium 3.6, Chloride 106, Carbon Dioxide 27, Anion Gap 9.6, BUN 16, Creatinine 0.80 D, Estimated Creat Clear 124, Estimated GFR 106, Est GFR ( Amer) 128 D, Glucose 109 H, Calcium 7.9 L 07/11/22 17:24: Vancomycin Peak 19.6 Medical History: Medical History (Updated 07/11/22 @ 08:10 by Madiha Ayala APRN) Acquired hammertoes of both feet Anemia GERD (gastroesophageal reflux disease) GI bleed Adiel's deformity of right heel Heel spur Migraine Psoriasis Right Achilles bursitis Right Achilles tendinitis 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 RECOMMEND PATIENT'S DOSE INCREASE TO VANCOMYCIN 2750 MG Q12H AT THIS TIME.
--- NOTE | 2022-07-12 11:11 | EXP.ORTH.PN ---
Subjective *Date: 07/12/22 *Time: 09:15 Interval history: Mr. Dennis is a 42 year old male patient with right heel surgical site infection with suspicion for calcaneal osteomyelitis, status post debridement, irrigation, and application of wound vaccum assisted closure x2 with antibiotic cement placement performed by Dr. Dean on 07/10/2022. Today the patient is postop day #2. This morning he is sitting up comfortably in a chair at the bedside. He reports some right heel pain as to be expected but states it is well controlled with as needed pain medication and rest. He had his PICC line placed yesterday. He reports subjective chills. He is otherwise eating and drinking well denies any episodes of nausea or vomiting. He denies any other symptoms or concerns at this time. Ortho Exam (Inpt) Vital signs and Labs for Last 24 Hours: Temp Pulse Resp BP Pulse Ox 97.8 F 58 L 18 140/90 98 07/12/22 08:00 07/12/22 08:00 07/12/22 08:00 07/12/22 08:00 07/12/22 08:00 Laboratory Results - last 24 hr 07/11/22 11:50: Vancomycin Trough 10.7 H 07/11/22 11:50: Sodium 139, Potassium 3.6, Chloride 106, Carbon Dioxide 27, Anion Gap 9.6, BUN 16, Creatinine 0.80 D, Estimated Creat Clear 124, Estimated GFR 106, Est GFR ( Amer) 128 D, Glucose 109 H, Calcium 7.9 L 07/11/22 17:24: Vancomycin Peak 19.6 I & O for Labs for Last 24 Hours: Intake & Output 07/09/22 07/10/22 07/11/22 07/12/22 23:59 23:59 23:59 23:59 Intake Total 3736 / 3736 1330 / 1330 1620 / 1620 480 / 480 Output Total 3040 / 3040 300 / 300 2100 / 2100 400 / 400 Balance 696 / 696 1030 / 1030 -480 / -480 80 / 80 Weight 314 lb 3 oz 315 lb 8 oz 313 lb 4.8 oz Microbiology Reports for the Last 24 Hours: Microbiology 07/08/22 17:35 Foot,Right - Abscess Gram Stain - Final 07/08/22 17:35 Foot,Right - Abscess Wound Culture - Final Staphylococcus aureus Head: Present normocephalic and atraumatic Eyes: Present as per HPI ENT: Present normal exam Neck: Present normal inspection, full ROM and trachea midline; Absent lymphadenopathy Respiratory: Present normal respiratory effort, able to speak in complete sentences and symmetric chest movement; Absent accessory muscle use Cardiac: Present Reg Rate and Rhythm GI: Present soft; Absent tenderness Comment:: Upon examination of the right foot/ankle: Surgical dressings present over the right foot are clean, dry, and intact. There is a wound VAC in place with good seal and approximately 5 cc of serosanguineous output noted in the canister. Out of the dressings, the surgical wound appears clean. No erythema, induration, or purulent drainage noted. Posterior tibial pulse 1+; capillary fill is brisk. Sensation light touch is grossly intact throughout; distal neurovascular status is intact. Patient is actively mobilizing the foot, ankle, and toes. Skin: Present intact, warm and normal turgor; Absent cyanosis, erythema, lesions or jaundice Neuro: Present Cranial Nerve 2-12 Intact, Motor Function Intact, Sensory Function Intact, alert, awake, oriented x 3, tone normal and moves all extremities; Absent Numbness or Tingling Assessment and Plan *Assessment and plan (1) Surgical site infection: Status: Acute Category: Medical Code(s): T81.49XA - Infection following a procedure, other surgical site, initial encounter Plan I have discussed the clinical findings and progress with the patient. Overall he is doing well from an orthopedic standpoint and may be discharged when medically appropriate. He may continue to ambulate with protected weightbearing as tolerated on the right lower extremity in a cam boot. Continue PICC line/vancomycin therapy and plan for outpatient follow-up with Dr. Rubens Torres in [place] for long-term antibiotic management; wound cultures taken at time of surgery positive for MRSA. I changed his wound VAC at the bedside today and the wound VAC is noted to have
--- NOTE | 2022-07-12 11:36 | EXP.PHA.PN ---
Subjective *Date: 07/12/22 *Time: 11:36 Medical Exam Vital signs and Labs for Last 24 Hours: Vital Signs Temp Pulse Pulse Resp BP BP Pulse Ox 07/12/22 08:00 97.8 F 58 L 18 140/90 98 07/12/22 04:00 98 F 82 16 139/91 H 95 07/11/22 20:00 97.9 F 74 16 120/72 97 07/11/22 14:58 97 F L 66 133/92 H Intake and Output 07/11/22 07/12/22 07/12/22 23:59 07:59 15:59 Intake Total 480 / 1620 480 / 480 Output Total 500 / 2100 400 / 400 Balance -20 / -480 -400 / 80 480 / 80 Intake: Intake, Oral Amount 480 / 1320 480 / 480 Output: Output, Urine Amount 500 / 2100 400 / 400 Other: Number of Bowel Movements 1 Weight 142.11 kg 142.11 kg Patient Weight 07/12/22 23:59 Weight 142.11 kg Laboratory Results - last 24 hr 07/11/22 11:50: Vancomycin Trough 10.7 H 07/11/22 11:50: Sodium 139, Potassium 3.6, Chloride 106, Carbon Dioxide 27, Anion Gap 9.6, BUN 16, Creatinine 0.80 D, Estimated Creat Clear 124, Estimated GFR 106, Est GFR ( Amer) 128 D, Glucose 109 H, Calcium 7.9 L 07/11/22 17:24: Vancomycin Peak 19.6 I & O for Labs for Last 24 Hours: Intake & Output 07/09/22 07/10/22 07/11/22 07/12/22 23:59 23:59 23:59 23:59 Intake Total 3736 / 3736 1330 / 1330 1620 / 1620 480 / 480 Output Total 3040 / 3040 300 / 300 2100 / 2100 400 / 400 Balance 696 / 696 1030 / 1030 -480 / -480 80 / 80 Weight 142.513 kg 143.108 kg 142.11 kg Microbiology Reports for the Last 24 Hours: Microbiology 07/08/22 17:35 Foot,Right - Abscess Gram Stain - Final 07/08/22 17:35 Foot,Right - Abscess Wound Culture - Final Staphylococcus aureus The patient's infection will respond to the chosen ABx?: Yes Is the patient receiving the right drug, dose, and route?: Yes Could a more targeted ABx be ordered?: No (PATIENT WITH MRSA IN WOUND ON LE.)
--- NOTE | 2022-07-12 14:01 | CARE MANAGER ---
Patient is planned for discharge today with need of home IV antibiotic infusions. Order/clinical faxed to [facility]ish and Althea notified. Patient will likely do virtual teaching and have medication delivered to home. Plan is for patient to return here for vac dressing changes twice weekly with Dr. Dean.
--- NOTE | 2022-07-12 14:03 | HMH.PHAINT1 ---
Pharmacy Intervention Comments: Met with patient and family at bedside to review discharge medications. Counseled on NEW vancomycin; confirmed HomeHealth would instruct patient and family on administration. Discussed possible adverse effects and mitigation strategies. Reviewed continued medications and instructed patient to STOP Bactrim. Patient and family verbalized understanding of the information provided and had no questions at this time.
--- NOTE | 2022-07-12 15:34 | CARE MANAGER ---
Spoke with pharmacy, José patient will need a trough on 07.14.22 @ 0900, CBC, BMP, CRP and Vancomyin trough weekly here at [facility] while getting Vancomycin. Results will need to be faxed to , this information was relayed to discharge nurse, Cami.
--- NOTE | 2022-07-13 14:46 | CARE MANAGER ---
Spoke with patient for post-discharge phone interview, he states that he has his medications and follow-up appointments. No needs noted.
--- NOTE | 2022-07-17 22:35 | EXP.DC.SUM ---
General Admission date:: 07/08/22 Discharge date: 07/12/22 HPI HPI HPI: 42 year old male who had surgery on right heel at [facility] on 06/24/[address] Dean, see op note, for post op wound infection. Patient states he did well for about a week after surgery but then began to have some redness of the skin and pain at the surgical site. He came to the ER on 07/04/22, see ER note, and was diagnosed with a post op wound infection. Culture was obtained that day and antibiotics were changed to Bactrim DS. On 07/08/22 patient was seen in Dr. Dean's office. He had worsening heel pain and the culture was reported as MRSA so patient was sent to the ER. He was started on IV Vancomycin and was taken back to the OR last night for wound debridement and wound vac placement. Patient states he feels much better now. Hospital Course Hospital Course Hospital Course: The patient was admitted for evaluation and management of the right heel postoperative MRSA infection. GI and DVT prophylaxis were added and he was started on vancomycin. Orthopedics saw the patient and felt he would need a repeat right foot debridement and irrigation along with antibiotic cement placement and a wound VAC. He was taken to the OR on 07/10/2022. His main complaint after the procedure was constipation and he was started on MiraLAX. He was able to get out of bed with a rolling walker without problems. A PICC line was ordered for continued IV vancomycin on an outpatient basis. Orthopedics wanted the patient to follow-up with Dr. Rubens Torres in [place] for long-term antibiotic management. He wanted him to follow-up in his clinic in [place] on July 12 for wound VAC assisted closure change. The patient had his wound VAC changed on 07/12/2022 and preferred to have all wound VAC changes performed in [place]. He was stable to be discharged home on continued IV vancomycin and will follow up with orthopedics. Exam Data for Last 24 hours Vital signs and Labs for Last 24 Hours: Temp Pulse Resp BP Pulse Ox 97.8 F 58 L 18 140/90 98 07/12/22 08:00 07/12/22 08:00 07/12/22 08:00 07/12/22 08:00 07/12/22 08:00 Narrative: Constitutional Constitutional: no acute distress *Routine HEENT Exam Head: Present normocephalic Eye: Present EOMI and PERRL ENT: Present mucous membranes moist *Routine Neck Exam Neck: Present supple; Absent lymphadenopathy *Routine Respiratory Exam Respiratory: Present CTA bilaterally *Routine Cardiovascular Exam Cardiovascular: Present RRR *Routine Abdominal Exam Abdominal: Present soft and normoactive bowel sounds; Absent tenderness *Routine Rectal Exam Rectal:: deferred *Routine Genitalia Exam Genitalia:: deferred *Routine Extremities Exam Extremities: Absent cyanosis, clubbing or edema *Routine Skin Exam Skin: Present warm; Absent rash Comments: Wound vac and Shaquille wrap in place over right foot *Routine Neurological Exam Neurological: Present alert and oriented X3 DS: Diagnosis Discharge Diagnosis (1) Surgical site infection: Status: Acute (2) MRSA infection: Status: Acute (3) GERD (gastroesophageal reflux disease): Status: Acute (4) Psoriasis: Status: Acute Meds Home Medications and Allergies Home Medications Medication Instructions Recorded Confirmed Type folic acid 1 mg tablet 1 mg PO DAILY Supplement 06/23/22 07/15/22 History guselkumab 100 mg/mL subcutaneous 100 mg SQ DIRECTED PSORIASIS 06/23/22 07/15/22 History auto-injector (Tremfya) methotrexate sodium 2.5 mg tablet 30 mg PO WEEKLY PSORIASIS 06/23/22 07/15/22 History Vancomycin HCl [Vancomycin 1000mg 166.667 mls/hr IV Q12 07/12/22 07/15/22 Rx vial] 2,750 mg New Prescriptions to Start Prescriptions: Vancomycin HCl [Vancomycin 1000mg vial] 2,750 mg 0.9 % Sodium Chloride [Sod Chloride 0.9% 500mL bag] 500 ml 166.667 mls/hr IV Q12 Allergies Allergy/AdvReac Type Severity Reaction Statu
== END 2022-07-12 15:42 | disposition home or self-care (01) | DRG 858 ==
LOC: ER 14:02 → 2ND 14:58
PROVIDERS: Orthopaedic Surgery; Admitting Provider Family Medicine; Emergency Provider Emergency Medicine; PCP Family Medicine; Visit Provider Family Medicine
PROC: 0QBM0ZZ Excision of Left Tarsal, Open Approach (ICD-10-PCS; principal; 2022-07-10 08:00)
DX: T81.49XA Infection following a procedure, other surgical site, initial encounter (principal); A49.02 Methicillin resistant Staphylococcus aureus infection, unspecified site; S91.301A Unspecified open wound, right foot, initial encounter; K21.9 Gastro-esophageal reflux disease without esophagitis; K59.00 Constipation, unspecified; L40.9 Psoriasis, unspecified
CPT/HCPCS: 11044; 36569; 36415; 71045; 73600; 76000; 80048; 80202; 85025; 86850; 87070; 87075; 87077; 87186; 87205; 99285; C1751; C1776; C9803; J2405; J2710; J3370; U0003; U0005

== ENCOUNTER → 2022-07-14 08:54 | Outpatient (CLI) | payer BC, SELFPAY ==
[2022-07-14 09:32] LABS: Basophils # 0.1 K/mm3 (0-0.2); Basophils % 0.7 % (0.1-2.0); Eosinophils # 0.5 K/mm3 (0.0-0.4); Eosinophils % 4.6 % (0.1-12.0); Hematocrit 46.5 % (42.0-52.0); Hemoglobin 15.2 g/dL (14.1-18.0); Lymphocytes # 2.3 K/mm3 (0.7-4.5); Lymphocytes % 19.8 % (10-50); Mean Corpuscular HGB Conc 32.7 g/dL (31.8-35.4); Mean Corpuscular Hemoglobin 27.5 pg (27.0-31.2); Mean Corpuscular Volume 84.1 fl (80-94); Mean Platelet Volume 7.6 fl (7.4-10.4); Monocytes # 0.7 K/mm3 (0.1-1.0); Monocytes % 6.2 % (1.7-9.3); Neutrophils % 68.8 % (37.0-80.0); Platelet Count 339 K/mm3 (142-424); Red Blood Count 5.52 M/mm3 (4.60-6.20); White Blood Count 11.6 K/mm3 (4.8-10.8)
[2022-07-14 09:55] LABS: Chloride 104 mmol/L (98-107); Sodium 139 mmol/L (136-145)
[2022-07-14 09:56] LABS: Potassium 4.5 mmoL/L (3.5-5.1)
[2022-07-14 09:58] LABS: Blood Urea Nitrogen 22 mg/dl (9-20); Estimated Glomerular Filt Rate 93 ml/min (>60); GFR (African American) 112 ML/MIN (>60)
[2022-07-14 09:59] LABS: Anion Gap 11.5 mEq/L (5-15); Calcium 8.5 mg/dl (8.4-10.2); Carbon Dioxide 28 mmol/L (22.0-30.0); Glucose 104 mg/dl (74-100)
[2022-07-14 10:04] LABS: C-Reactive Protein 39.6 mg/L (0-4)
[2022-07-14 19:29] LABS: Vancomycin,Trough 15.2 ug/mL (5.0-10.0)
== END ==
PROVIDERS: PCP Family Medicine; Visit Provider Orthopaedic Surgery
DX: S91.301A Unspecified open wound, right foot, initial encounter (principal); A49.02 Methicillin resistant Staphylococcus aureus infection, unspecified site
CPT/HCPCS: 36415; 80048; 80202; 85025; 86140

== ENCOUNTER → 2022-07-25 10:06 | Outpatient (CLI) | payer BC, SELFPAY ==
[2022-07-25 10:44] LABS: Basophils # 0.1 K/mm3 (0-0.2); Basophils % 0.8 % (0.1-2.0); Eosinophils # 0.3 K/mm3 (0.0-0.4); Eosinophils % 2.9 % (0.1-12.0); Hematocrit 44.4 % (42.0-52.0); Hemoglobin 15.1 g/dL (14.1-18.0); Lymphocytes # 1.7 K/mm3 (0.7-4.5); Lymphocytes % 17.3 % (10-50); Mean Corpuscular Hemoglobin 27.8 pg (27.0-31.2); Mean Corpuscular Volume 81.8 fl (80-94); Mean Platelet Volume 7.8 fl (7.4-10.4); Monocytes # 0.6 K/mm3 (0.1-1.0); Monocytes % 6.1 % (1.7-9.3); Neutrophils # 7.2 K/mm3 (1.8-7.8); Neutrophils % 72.9 % (37.0-80.0); Platelet Count 309 K/mm3 (142-424); Red Blood Count 5.42 M/mm3 (4.60-6.20); White Blood Count 9.9 K/mm3 (4.8-10.8)
[2022-07-25 11:05] LABS: Alanine Aminotransferase 53 U/L (12-78); Albumin Level 4.3 g/dl (3.5-5.0); Albumin/Globulin Ratio 1.2 (1.1-1.8); Alkaline Phosphatase 113 U/L (38-126); Anion Gap 13.2 mEq/L (5-15); Aspartate Amino Transferase 36 U/L (17-59); Blood Urea Nitrogen 20 mg/dl (9-20); Calcium 8.9 mg/dl (8.4-10.2); Carbon Dioxide 24 mmol/L (22.0-30.0); Chloride 106 mmol/L (98-107); Estimated Glomerular Filt Rate 93 ml/min (>60); GFR (African American) 112 ML/MIN (>60); Globulin 3.5 g/dL (1.3-3.2); Glucose 105 mg/dl (74-100); Potassium 4.2 mmoL/L (3.5-5.1); Sodium 139 mmol/L (136-145); Total Protein,Serum 7.8 g/dl (6.3-8.2)
[2022-07-25 11:07] LABS: Erythrocyte Sedimentation Rate 15 mm/hr (0-15)
[2022-07-25 11:11] LABS: C-Reactive Protein 71.4 mg/L (0-4)
[2022-07-26 16:51] LABS: CK-BB 0 % (0); CK-MB 0 % (0-3); CK-MM 100 % (97-100); Creatine Kinase,Total,Serum 77 U/L (49-439); Macro Type 1 0 % (Not Observed); Macro Type 2 0 % (Not Observed)
== END ==
PROVIDERS: Physician Assistant Surgical; PCP Family Medicine; Visit Provider Orthopaedic Surgery
DX: T81.49XA Infection following a procedure, other surgical site, initial encounter (principal); L08.9 Local infection of the skin and subcutaneous tissue, unspecified
CPT/HCPCS: 36415; 80053; 82550; 82552; 85025; 85651; 86140

== ENCOUNTER → 2022-08-01 10:42 | Outpatient (CLI) | payer BC, SELFPAY ==
[2022-08-01 11:25] LABS: Basophils # 0.1 K/mm3 (0-0.2); Basophils % 1.7 % (0.1-2.0); Eosinophils # 0.3 K/mm3 (0.0-0.4); Eosinophils % 4.4 % (0.1-12.0); Hematocrit 42.2 % (42.0-52.0); Lymphocytes # 1.5 K/mm3 (0.7-4.5); Lymphocytes % 19.5 % (10-50); Mean Corpuscular HGB Conc 33.1 g/dL (31.8-35.4); Mean Corpuscular Hemoglobin 27.5 pg (27.0-31.2); Mean Corpuscular Volume 83.2 fl (80-94); Monocytes # 0.5 K/mm3 (0.1-1.0); Monocytes % 6.3 % (1.7-9.3); Neutrophils # 5.1 K/mm3 (1.8-7.8); Neutrophils % 68.1 % (37.0-80.0); Platelet Count 496 K/mm3 (142-424); Red Blood Count 5.08 M/mm3 (4.60-6.20); Red Cell Distribution Width 13.9 % (11.5-17.5); White Blood Count 7.5 K/mm3 (4.8-10.8)
[2022-08-01 11:45] LABS: Hemoglobin A1C 5.6 % (4.0-6.0)
[2022-08-01 11:48] LABS: Alanine Aminotransferase 33 U/L (12-78); Albumin Level 4.1 g/dl (3.5-5.0); Albumin/Globulin Ratio 1.2 (1.1-1.8); Alkaline Phosphatase 109 U/L (38-126); Anion Gap 13.2 mEq/L (5-15); Aspartate Amino Transferase 34 U/L (17-59); Bilirubin,Total 0.4 mg/dl (0.2-1.3); Blood Urea Nitrogen 17 mg/dl (9-20); Calcium 8.6 mg/dl (8.4-10.2); Carbon Dioxide 23 mmol/L (22.0-30.0); Chloride 107 mmol/L (98-107); Estimated Glomerular Filt Rate 93 ml/min (>60); GFR (African American) 112 ML/MIN (>60); Globulin 3.5 g/dL (1.3-3.2); Glucose 97 mg/dl (74-100); Potassium 4.2 mmoL/L (3.5-5.1); Sodium 139 mmol/L (136-145); Total Protein,Serum 7.6 g/dl (6.3-8.2)
[2022-08-01 11:53] LABS: C-Reactive Protein 31.8 mg/L (0-4)
[2022-08-01 12:02] LABS: Erythrocyte Sedimentation Rate 35 mm/hr (0-15)
[2022-08-02 16:39] LABS: CK-BB 0 % (0); CK-MB 0 % (0-3); CK-MM 100 % (97-100); Creatine Kinase,Total,Serum 160 U/L (49-439); Macro Type 1 0 % (Not Observed); Macro Type 2 0 % (Not Observed)
== END ==
PROVIDERS: PCP Family Medicine; Visit Provider Physician Assistant Surgical
DX: S91.301A Unspecified open wound, right foot, initial encounter (principal); A49.02 Methicillin resistant Staphylococcus aureus infection, unspecified site
CPT/HCPCS: 36415; 80053; 82550; 82552; 83036; 85025; 85651; 86140

== ENCOUNTER 2022-08-05 11:18 | Outpatient (CLI) | payer BC, SELFPAY | END 2022-08-05 11:40 | disposition home or self-care (01) | LOC: INF 11:19 | PROVIDERS: PCP Family Medicine; Visit Provider Physician Assistant Surgical | DX: M79.671 Pain in right foot (principal); L08.9 Local infection of the skin and subcutaneous tissue, unspecified; A49.02 Methicillin resistant Staphylococcus aureus infection, unspecified site; Z09 Encounter for follow-up examination after completed treatment for conditions other than malignant neoplasm; Z45.2 Encounter for adjustment and management of vascular access device | CPT/HCPCS: 96523 ==

== ENCOUNTER → 2022-08-08 10:52 | Outpatient (CLI) | payer BC, SELFPAY ==
[2022-08-08 11:57] LABS: Basophils # 0.1 K/mm3 (0-0.2); Basophils % 0.7 % (0.1-2.0); Eosinophils # 0.7 K/mm3 (0.0-0.4); Eosinophils % 6.2 % (0.1-12.0); Hematocrit 43.7 % (42.0-52.0); Hemoglobin 14.7 g/dL (14.1-18.0); Lymphocytes # 1.5 K/mm3 (0.7-4.5); Lymphocytes % 13.6 % (10-50); Mean Corpuscular HGB Conc 33.6 g/dL (31.8-35.4); Mean Corpuscular Hemoglobin 27.5 pg (27.0-31.2); Mean Corpuscular Volume 81.8 fl (80-94); Monocytes # 0.6 K/mm3 (0.1-1.0); Neutrophils # 8.1 K/mm3 (1.8-7.8); Neutrophils % 74.5 % (37.0-80.0); Platelet Count 413 K/mm3 (142-424); Red Blood Count 5.34 M/mm3 (4.60-6.20); Red Cell Distribution Width 13.8 % (11.5-17.5); White Blood Count 10.8 K/mm3 (4.8-10.8)
[2022-08-08 12:37] LABS: Erythrocyte Sedimentation Rate 22 mm/hr (0-15)
[2022-08-08 12:39] LABS: Chloride 110 mmol/L (98-107); Potassium 4.2 mmoL/L (3.5-5.1); Sodium 141 mmol/L (136-145)
[2022-08-08 12:42] LABS: Alanine Aminotransferase 24 U/L (12-78); Albumin Level 4.1 g/dl (3.5-5.0); Albumin/Globulin Ratio 1.2 (1.1-1.8); Alkaline Phosphatase 112 U/L (38-126); Anion Gap 14.2 mEq/L (5-15); Aspartate Amino Transferase 28 U/L (17-59); Bilirubin,Total 0.6 mg/dl (0.2-1.3); Blood Urea Nitrogen 15 mg/dl (9-20); Carbon Dioxide 21 mmol/L (22.0-30.0); Estimated Glomerular Filt Rate 93 ml/min (>60); GFR (African American) 112 ML/MIN (>60); Globulin 3.4 g/dL (1.3-3.2); Total Protein,Serum 7.5 g/dl (6.3-8.2)
[2022-08-08 12:43] LABS: Calcium 8.6 mg/dl (8.4-10.2); Glucose 102 mg/dl (74-100)
[2022-08-08 12:54] LABS: C-Reactive Protein 66.6 mg/L (0-4)
[2022-08-09 16:43] LABS: CK-BB 0 % (0); CK-MB 0 % (0-3); CK-MM 100 % (97-100); Creatine Kinase,Total,Serum 151 U/L (49-439); Macro Type 1 0 % (Not Observed); Macro Type 2 0 % (Not Observed)
== END ==
PROVIDERS: PCP Family Medicine; Visit Provider Physician Assistant Surgical
DX: A49.02 Methicillin resistant Staphylococcus aureus infection, unspecified site (principal); L08.9 Local infection of the skin and subcutaneous tissue, unspecified; M79.671 Pain in right foot
CPT/HCPCS: 36415; 80053; 82550; 82552; 85025; 85651; 86140

== ENCOUNTER 2022-08-14 12:54 | Emergency (ER) | payer BC, SELFPAY ==
[2022-08-14 13:01] VITALS: BP 153/97; PULSE 94; RESP 20; TEMP 36.8; O2SAT 97; BMI 41.8
--- NOTE | 2022-08-14 13:04 | HMH.EDGENADL ---
Discharge Plan Disposition Patient Disposition: Home, Self-Care Condition: Good Prescriptions Prescriptions: No Action Xarelto 15 mg tablet 15 mg PO Xarelto DVT-PE Treat 30d Start 15 mg (42)- 20 mg (9) tablets,dose pack See Rx Instructions PO .COMPLEX Rx Instructions: take one-15 mg tablet twice daily for 21 days, then one-20 mg tablet once daily; must take with meal/food PO levofloxacin 750 mg tablet 750 mg PO DAILY methotrexate sodium 2.5 mg tablet 30 mg PO WEEKLY folic acid 1 mg tablet 1 mg PO DAILY Tremfya 100 mg/mL Auto-Injector 100 mg SQ DIRECTED Rx Instructions: [id number] Vancomycin HCl [Vancomycin 1000mg vial] 2750 MG 0.9 % Sodium Chloride [Sod Chloride 0.9% 500mL bag] 500 ML 166.667 mls/hr IV Q12 Ordered By: Macario Burkett MD Last Taken: Unknown Referrals Follow up/Referrals: Macario Burkett MD [Primary Care Provider] - See instructions Activity Restrictions/Add. Instructions Additional Instructions/Restrictions: Keep all follow-up appointments as scheduled. Follow-up with the PICC line team in the next day or 2 to have it checked for why its not drawing back. You may use the PICC line as planned today. Return to the emergency department immediately if you feel worse in any way. Clinical Impressions Clinical Impression: Encounter for peripherally inserted central catheter (PICC) flush Discharge ED Provider: Lito Youssef Adult HPI General Chief complaint: Recheck/Abnormal Lab/Rx Stated complaint: Pic line is out phys ref Time Seen by Provider: 08/14/22 13:04 History of Present Illness HPI narrative: The patient presents to the emergency department because he feels that his PICC line is obstructed. He has had this PICC line since Monday. It has been placed for home antibiotic use for MRSA of the foot. He only missed today's dose of antibiotics because he felt that the line could not flush. Related Data Home Medications Medication Instructions Recorded Confirmed folic acid 1 mg tablet 1 mg PO DAILY Supplement 06/23/22 08/08/22 guselkumab 100 mg/mL subcutaneous 100 mg SQ DIRECTED PSORIASIS 06/23/22 08/08/22 auto-injector (Tremfya) methotrexate sodium 2.5 mg tablet 30 mg PO WEEKLY PSORIASIS 06/23/22 08/08/22 rivaroxaban 15 mg (42)-20 mg (9) See Rx Instructions PO .COMPLEX 07/29/22 08/08/22 tablets in a starter pack (Xarelto DVT-PE Treatment 30-Day Starter) levofloxacin 750 mg tablet 750 mg PO DAILY 08/01/22 08/08/22 rivaroxaban 15 mg tablet (Xarelto) 15 mg PO 08/05/22 08/08/22 Previous Rx's Medication Instructions Recorded Vancomycin HCl [Vancomycin 1000mg 166.667 mls/hr IV Q12 07/12/22 vial] 2,750 mg Allergies Allergy/AdvReac Type Severity Reaction Status Date / Time Latex, Natural Rubber Allergy Mild cooper skin Verified 08/08/22 09:42 cephalexin [From Keflex] AdvReac Mild Vomiting Verified 08/08/22 09:42 [facility] Disclaimer: The information contained in this section may have been updated after the patient was seen, as this information can be updated by other users. 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
--- NOTE | 2022-08-14 13:09 | XR_ITS ---
PROCEDURE INFORMATION: Exam: XR Chest Exam date and time: 08/14/2022 1:26 PM Age: 42 years old Clinical indication: Device placement; Patient HX: Picc line; Additional info: Pic line-- PT has picc line that was previously done for home iv antibiotics following foot infection and operation-- had bandage changed yesterday and now won't flush or draw from picc-- checking placement- PT feels like bandage change May have pulled it out some TECHNIQUE: Imaging protocol: Radiologic exam of the chest. Views: 1 view. COMPARISON: CR (CHEST, CXR AP LANDSCAPE) 07/11/2022 10:37 AM FINDINGS: Tubes, catheters and devices: PICC line tip projected at atrial caval junction. No pneumothorax. Lungs: Similar patchy right basilar subsegmental atelectasis/scarring Pleural spaces: See Tubes, catheters and devices finding. Heart/Mediastinum: Unremarkable. No cardiomegaly. Bones/joints: Unremarkable. IMPRESSION: PICC line grossly in place. Patchy right basilar subsegmental subsegmental atelectasis/scarring.
[2022-08-14 13:54] VITALS: BP 120/80; PULSE 75; RESP 15; TEMP 36.9; O2SAT 98
== END 2022-08-14 13:55 | disposition home or self-care (01) ==
PROVIDERS: Emergency Provider Emergency Medicine; PCP Family Medicine
DX: Z45.2 Encounter for adjustment and management of vascular access device (principal); D64.9 Anemia, unspecified; Z20.822 Contact with and (suspected) exposure to COVID-19; Z82.49 Family history of ischemic heart disease and other diseases of the circulatory system
CPT/HCPCS: 71045; 99283; 99284; J1642

== ENCOUNTER 2022-08-15 09:43 | Outpatient (CLI) | payer BC, SELFPAY ==
[2022-08-15 10:29] LABS: Basophils # 0.1 K/mm3 (0-0.2); Basophils % 1.2 % (0.1-2.0); Eosinophils # 0.4 K/mm3 (0.0-0.4); Eosinophils % 5.2 % (0.1-12.0); Hematocrit 44.2 % (42.0-52.0); Hemoglobin 14.2 g/dL (14.1-18.0); Lymphocytes # 1.9 K/mm3 (0.7-4.5); Lymphocytes % 23.3 % (10-50); Mean Corpuscular HGB Conc 32.2 g/dL (31.8-35.4); Mean Corpuscular Hemoglobin 26.4 pg (27.0-31.2); Mean Platelet Volume 7.3 fl (7.4-10.4); Monocytes # 0.5 K/mm3 (0.1-1.0); Monocytes % 6.7 % (1.7-9.3); Neutrophils # 5.1 K/mm3 (1.8-7.8); Neutrophils % 63.6 % (37.0-80.0); Platelet Count 387 K/mm3 (142-424); Red Blood Count 5.38 M/mm3 (4.60-6.20); Red Cell Distribution Width 13.9 % (11.5-17.5)
[2022-08-15 10:51] LABS: Erythrocyte Sedimentation Rate 21 mm/hr (0-15)
[2022-08-15 11:27] LABS: Chloride 107 mmol/L (98-107); Potassium 4.4 mmoL/L (3.5-5.1); Sodium 139 mmol/L (136-145)
[2022-08-15 11:30] LABS: Alanine Aminotransferase 40 U/L (12-78); Albumin Level 3.9 g/dl (3.5-5.0); Albumin/Globulin Ratio 1.1 (1.1-1.8); Alkaline Phosphatase 89 U/L (38-126); Anion Gap 10.4 mEq/L (5-15); Aspartate Amino Transferase 44 U/L (17-59); Bilirubin,Total 0.4 mg/dl (0.2-1.3); Blood Urea Nitrogen 22 mg/dl (9-20); Carbon Dioxide 26 mmol/L (22.0-30.0); Estimated Glomerular Filt Rate 93 ml/min (>60); GFR (African American) 112 ML/MIN (>60); Globulin 3.4 g/dL (1.3-3.2); Total Protein,Serum 7.3 g/dl (6.3-8.2)
[2022-08-15 11:31] LABS: Calcium 8.7 mg/dl (8.4-10.2); Glucose 85 mg/dl (74-100)
[2022-08-15 11:37] LABS: C-Reactive Protein 24.2 mg/L (0-4)
[2022-08-16 15:20] LABS: CK-BB 0 % (0); CK-MB 0 % (0-3); CK-MM 99 % (97-100); Creatine Kinase,Total,Serum 170 U/L (49-439); Macro Type 1 1 % (Not Observed); Macro Type 2 0 % (Not Observed)
== END 2022-08-15 10:05 | disposition home or self-care (01) ==
LOC: INF 09:44
PROVIDERS: PCP Family Medicine; Visit Provider Physician Assistant Surgical
DX: S91.301D Unspecified open wound, right foot, subsequent encounter (principal); A49.02 Methicillin resistant Staphylococcus aureus infection, unspecified site; Z45.2 Encounter for adjustment and management of vascular access device
CPT/HCPCS: 36415; 80053; 82550; 82552; 85025; 85651; 86140; G0463

== ENCOUNTER 2022-08-19 08:01 | Outpatient (CLI) | payer BC, SELFPAY | END 2022-08-19 08:20 | disposition home or self-care (01) | LOC: INF 08:01 | PROVIDERS: PCP Family Medicine; Visit Provider Orthopaedic Surgery | DX: Z45.2 Encounter for adjustment and management of vascular access device (principal); T81.49XA Infection following a procedure, other surgical site, initial encounter; S91.301D Unspecified open wound, right foot, subsequent encounter; A49.02 Methicillin resistant Staphylococcus aureus infection, unspecified site | CPT/HCPCS: 96523 ==

== ENCOUNTER → 2022-08-22 09:48 | Outpatient (CLI) | payer BC, SELFPAY ==
[2022-08-22 12:05] LABS: Basophils # 0.1 K/mm3 (0-0.2); Basophils % 0.9 % (0.1-2.0); Eosinophils # 0.3 K/mm3 (0.0-0.4); Eosinophils % 4.2 % (0.1-12.0); Hemoglobin 14.7 g/dL (14.1-18.0); Lymphocytes # 1.5 K/mm3 (0.7-4.5); Lymphocytes % 21.2 % (10-50); Mean Corpuscular HGB Conc 36.7 g/dL (31.8-35.4); Mean Corpuscular Hemoglobin 29.7 pg (27.0-31.2); Mean Platelet Volume 7.6 fl (7.4-10.4); Monocytes # 0.6 K/mm3 (0.1-1.0); Monocytes % 8.3 % (1.7-9.3); Neutrophils # 4.6 K/mm3 (1.8-7.8); Neutrophils % 65.4 % (37.0-80.0); Platelet Count 319 K/mm3 (142-424); Red Blood Count 4.93 M/mm3 (4.60-6.20); Red Cell Distribution Width 14.2 % (11.5-17.5); White Blood Count 7.1 K/mm3 (4.8-10.8)
[2022-08-22 12:35] LABS: Alanine Aminotransferase 30 U/L (12-78); Albumin Level 4.2 g/dl (3.5-5.0); Albumin/Globulin Ratio 1.3 (1.1-1.8); Alkaline Phosphatase 84 U/L (38-126); Anion Gap 11.6 mEq/L (5-15); Aspartate Amino Transferase 31 U/L (17-59); Bilirubin,Total 0.4 mg/dl (0.2-1.3); Blood Urea Nitrogen 16 mg/dl (9-20); Calcium 8.9 mg/dl (8.4-10.2); Carbon Dioxide 27 mmol/L (22.0-30.0); Chloride 107 mmol/L (98-107); Estimated Glomerular Filt Rate 82 ml/min (>60); GFR (African American) 99 ML/MIN (>60); Globulin 3.3 g/dL (1.3-3.2); Glucose 96 mg/dl (74-100); Potassium 4.6 mmoL/L (3.5-5.1); Sodium 141 mmol/L (136-145); Total Protein,Serum 7.5 g/dl (6.3-8.2)
[2022-08-22 12:41] LABS: C-Reactive Protein 8.6 mg/L (0-4)
[2022-08-22 14:27] LABS: Erythrocyte Sedimentation Rate 15 mm/hr (0-15)
[2022-08-23 14:21] LABS: CK-BB 0 % (0); CK-MB 0 % (0-3); CK-MM 100 % (97-100); Creatine Kinase,Total,Serum 148 U/L (49-439); Macro Type 1 0 % (Not Observed); Macro Type 2 0 % (Not Observed)
== END ==
PROVIDERS: PCP Family Medicine; Visit Provider Physician Assistant Surgical
DX: S91.301A Unspecified open wound, right foot, initial encounter (principal); A49.02 Methicillin resistant Staphylococcus aureus infection, unspecified site
CPT/HCPCS: 36415; 80053; 82550; 82552; 85025; 85651; 86140

== ENCOUNTER 2022-08-26 09:28 | Outpatient (CLI) | payer BC, SELFPAY | END 2022-08-26 09:50 | disposition home or self-care (01) | LOC: INF 09:28 | PROVIDERS: PCP Family Medicine; Visit Provider Orthopaedic Surgery | DX: Z45.2 Encounter for adjustment and management of vascular access device (principal); S91.301A Unspecified open wound, right foot, initial encounter | CPT/HCPCS: 96523 ==

== ENCOUNTER → 2022-08-29 09:20 | Outpatient (CLI) | payer BC, SELFPAY ==
[2022-08-29 10:21] LABS: Basophils # 0.1 K/mm3 (0-0.2); Eosinophils # 0.5 K/mm3 (0.0-0.4); Eosinophils % 7.3 % (0.1-12.0); Hematocrit 45.6 % (42.0-52.0); Lymphocytes # 1.8 K/mm3 (0.7-4.5); Lymphocytes % 27.5 % (10-50); Mean Corpuscular HGB Conc 32.9 g/dL (31.8-35.4); Mean Corpuscular Hemoglobin 26.7 pg (27.0-31.2); Mean Corpuscular Volume 81.2 fl (80-94); Mean Platelet Volume 8.1 fl (7.4-10.4); Monocytes # 0.5 K/mm3 (0.1-1.0); Monocytes % 7.2 % (1.7-9.3); Neutrophils # 3.8 K/mm3 (1.8-7.8); Neutrophils % 57.1 % (37.0-80.0); Platelet Count 322 K/mm3 (142-424); Red Blood Count 5.62 M/mm3 (4.60-6.20); Red Cell Distribution Width 14.3 % (11.5-17.5); White Blood Count 6.6 K/mm3 (4.8-10.8)
[2022-08-29 10:27] LABS: Alanine Aminotransferase 31 U/L (12-78); Albumin Level 4.2 g/dl (3.5-5.0); Albumin/Globulin Ratio 1.3 (1.1-1.8); Alkaline Phosphatase 85 U/L (38-126); Anion Gap 9.1 mEq/L (5-15); Aspartate Amino Transferase 34 U/L (17-59); Bilirubin,Total 0.5 mg/dl (0.2-1.3); Blood Urea Nitrogen 18 mg/dl (9-20); Calcium 8.8 mg/dl (8.4-10.2); Carbon Dioxide 25 mmol/L (22.0-30.0); Chloride 110 mmol/L (98-107); Estimated Glomerular Filt Rate 93 ml/min (>60); GFR (African American) 112 ML/MIN (>60); Globulin 3.3 g/dL (1.3-3.2); Glucose 107 mg/dl (74-100); Potassium 4.1 mmoL/L (3.5-5.1); Sodium 140 mmol/L (136-145); Total Protein,Serum 7.5 g/dl (6.3-8.2)
[2022-08-29 10:34] LABS: C-Reactive Protein 9.4 mg/L (0-4)
[2022-08-29 13:05] LABS: Erythrocyte Sedimentation Rate 10 mm/hr (0-15)
[2022-08-30 13:10] LABS: CK-BB 0 % (0); CK-MB 0 % (0-3); CK-MM 100 % (97-100); Creatine Kinase,Total,Serum 129 U/L (49-439); Macro Type 1 0 % (Not Observed); Macro Type 2 0 % (Not Observed)
== END ==
PROVIDERS: PCP Family Medicine; Visit Provider Physician Assistant Surgical
DX: A49.02 Methicillin resistant Staphylococcus aureus infection, unspecified site (principal); L08.9 Local infection of the skin and subcutaneous tissue, unspecified
CPT/HCPCS: 36415; 80053; 82550; 82552; 85025; 85651; 86140

== ENCOUNTER → 2022-09-01 08:53 | Outpatient (CLI) | payer BC, SELFPAY ==
--- NOTE | 2022-09-01 08:58 | XR_ITS ---
FINAL REPORT CLINICAL HISTORY: surgery follow up COMPARISON: Right foot 01/05/2021 FINDINGS: RIGHT CALCANEUS Three views were obtained. There is no acute fracture. There are extensive postoperative changes of the calcaneal body and tuberosity. There are chronic calcifications identified superior to the tuberosity. Plantar calcaneal enthesopathy is noted. There is mild degenerative change. IMPRESSION: Postoperative changes as above. Reviewed, Interpreted and Dictated by Won Carey III, MD Transcribed by Lulu Patrick Authenticated and . [facility]
== END ==
PROVIDERS: PCP Family Medicine; Visit Provider Orthopaedic Surgery
DX: S91.301A Unspecified open wound, right foot, initial encounter (principal)
CPT/HCPCS: 73650

== ENCOUNTER 2022-09-02 09:32 | Outpatient (CLI) | payer BC, SELFPAY ==
[2022-09-02 13:29] LABS: Basophils # 0.1 K/mm3 (0-0.2); Basophils % 1.1 % (0.1-2.0); Eosinophils # 0.4 K/mm3 (0.0-0.4); Hematocrit 46.3 % (42.0-52.0); Hemoglobin 14.9 g/dL (14.1-18.0); Lymphocytes # 1.7 K/mm3 (0.7-4.5); Lymphocytes % 24.2 % (10-50); Mean Corpuscular HGB Conc 32.2 g/dL (31.8-35.4); Mean Corpuscular Hemoglobin 27.3 pg (27.0-31.2); Mean Corpuscular Volume 84.6 fl (80-94); Mean Platelet Volume 8.3 fl (7.4-10.4); Monocytes # 0.5 K/mm3 (0.1-1.0); Monocytes % 6.6 % (1.7-9.3); Neutrophils # 4.4 K/mm3 (1.8-7.8); Neutrophils % 63.2 % (37.0-80.0); Platelet Count 343 K/mm3 (142-424); Red Blood Count 5.47 M/mm3 (4.60-6.20); Red Cell Distribution Width 14.6 % (11.5-17.5); White Blood Count 6.9 K/mm3 (4.8-10.8)
[2022-09-02 14:12] LABS: Chloride 109 mmol/L (98-107); Potassium 4.1 mmoL/L (3.5-5.1); Sodium 138 mmol/L (136-145)
[2022-09-02 14:15] LABS: Alanine Aminotransferase 29 U/L (12-78); Albumin Level 4.1 g/dl (3.5-5.0); Albumin/Globulin Ratio 1.3 (1.1-1.8); Alkaline Phosphatase 77 U/L (38-126); Anion Gap 11.1 mEq/L (5-15); Aspartate Amino Transferase 36 U/L (17-59); Bilirubin,Total 0.5 mg/dl (0.2-1.3); Blood Urea Nitrogen 19 mg/dl (9-20); Carbon Dioxide 22 mmol/L (22.0-30.0); Estimated Glomerular Filt Rate 93 ml/min (>60); GFR (African American) 112 ML/MIN (>60); Globulin 3.2 g/dL (1.3-3.2); Total Protein,Serum 7.3 g/dl (6.3-8.2)
[2022-09-02 14:16] LABS: Calcium 8.5 mg/dl (8.4-10.2); Glucose 94 mg/dl (74-100)
[2022-09-02 14:21] LABS: C-Reactive Protein 8.2 mg/L (0-4)
[2022-09-02 14:35] LABS: Erythrocyte Sedimentation Rate 11 mm/hr (0-15)
[2022-09-05 15:46] LABS: CK-BB 0 % (0); CK-MB 0 % (0-3); CK-MM 100 % (97-100); Creatine Kinase,Total,Serum 167 U/L (49-439); Macro Type 1 0 % (Not Observed); Macro Type 2 0 % (Not Observed)
== END 2022-09-02 10:00 | disposition home or self-care (01) ==
LOC: INF 09:32
PROVIDERS: PCP Family Medicine; Visit Provider Physician Assistant Surgical
DX: Z45.2 Encounter for adjustment and management of vascular access device (principal); M86.171 Other acute osteomyelitis, right ankle and foot; A49.02 Methicillin resistant Staphylococcus aureus infection, unspecified site
CPT/HCPCS: 36415; 80053; 82550; 82552; 85025; 85651; 86140; 96523

== ENCOUNTER → 2022-09-05 09:04 | Outpatient (CLI) | payer BC, SELFPAY ==
[2022-09-05 09:31] LABS: Basophils # 0.1 K/mm3 (0-0.2); Basophils % 0.8 % (0.1-2.0); Eosinophils # 0.4 K/mm3 (0.0-0.4); Hemoglobin 15.3 g/dL (14.1-18.0); Lymphocytes # 1.6 K/mm3 (0.7-4.5); Lymphocytes % 23.3 % (10-50); Mean Corpuscular HGB Conc 34.9 g/dL (31.8-35.4); Mean Corpuscular Hemoglobin 28.5 pg (27.0-31.2); Mean Corpuscular Volume 81.9 fl (80-94); Mean Platelet Volume 7.7 fl (7.4-10.4); Monocytes # 0.4 K/mm3 (0.1-1.0); Monocytes % 5.8 % (1.7-9.3); Neutrophils # 4.4 K/mm3 (1.8-7.8); Neutrophils % 64.1 % (37.0-80.0); Platelet Count 331 K/mm3 (142-424); Red Blood Count 5.38 M/mm3 (4.60-6.20); Red Cell Distribution Width 14.4 % (11.5-17.5); White Blood Count 6.9 K/mm3 (4.8-10.8)
[2022-09-05 09:54] LABS: Erythrocyte Sedimentation Rate 13 mm/hr (0-15)
[2022-09-05 10:23] LABS: Chloride 109 mmol/L (98-107); Potassium 4.4 mmoL/L (3.5-5.1); Sodium 141 mmol/L (136-145)
[2022-09-05 10:25] LABS: Alanine Aminotransferase 31 U/L (12-78); Alkaline Phosphatase 82 U/L (38-126); Aspartate Amino Transferase 36 U/L (17-59); Bilirubin,Total 0.6 mg/dl (0.2-1.3); Blood Urea Nitrogen 17 mg/dl (9-20); Estimated Glomerular Filt Rate 93 ml/min (>60); GFR (African American) 112 ML/MIN (>60)
[2022-09-05 10:26] LABS: Albumin/Globulin Ratio 1.2 (1.1-1.8); Anion Gap 8.4 mEq/L (5-15); Calcium 8.7 mg/dl (8.4-10.2); Carbon Dioxide 28 mmol/L (22.0-30.0); Globulin 3.3 g/dL (1.3-3.2); Glucose 103 mg/dl (74-100); Total Protein,Serum 7.3 g/dl (6.3-8.2)
[2022-09-05 10:32] LABS: C-Reactive Protein 16.6 mg/L (0-4)
[2022-09-06 13:37] LABS: CK-BB 0 % (0); CK-MB 0 % (0-3); CK-MM 100 % (97-100); Creatine Kinase,Total,Serum 150 U/L (49-439); Macro Type 1 0 % (Not Observed); Macro Type 2 0 % (Not Observed)
== END ==
PROVIDERS: PCP Family Medicine; Visit Provider Physician Assistant Surgical
DX: A49.02 Methicillin resistant Staphylococcus aureus infection, unspecified site (principal); M86.171 Other acute osteomyelitis, right ankle and foot
CPT/HCPCS: 36415; 80053; 82550; 82552; 85025; 85651; 86140

== ENCOUNTER 2022-09-09 08:27 | Outpatient (CLI) | payer BC, SELFPAY ==
[2022-09-09 10:28] LABS: Basophils # 0.1 K/mm3 (0-0.2); Basophils % 0.9 % (0.1-2.0); Eosinophils # 0.3 K/mm3 (0.0-0.4); Eosinophils % 5.1 % (0.1-12.0); Hematocrit 47.6 % (42.0-52.0); Hemoglobin 15.7 g/dL (14.1-18.0); Lymphocytes # 1.5 K/mm3 (0.7-4.5); Lymphocytes % 22.5 % (10-50); Mean Corpuscular Hemoglobin 27.2 pg (27.0-31.2); Mean Corpuscular Volume 82.4 fl (80-94); Mean Platelet Volume 7.8 fl (7.4-10.4); Monocytes # 0.5 K/mm3 (0.1-1.0); Monocytes % 6.9 % (1.7-9.3); Neutrophils # 4.3 K/mm3 (1.8-7.8); Neutrophils % 64.7 % (37.0-80.0); Platelet Count 343 K/mm3 (142-424); Red Blood Count 5.77 M/mm3 (4.60-6.20); Red Cell Distribution Width 14.2 % (11.5-17.5); White Blood Count 6.6 K/mm3 (4.8-10.8)
[2022-09-09 10:42] LABS: Alanine Aminotransferase 27 U/L (12-78); Albumin Level 4.3 g/dl (3.5-5.0); Albumin/Globulin Ratio 1.3 (1.1-1.8); Alkaline Phosphatase 84 U/L (38-126); Anion Gap 11.1 mEq/L (5-15); Aspartate Amino Transferase 34 U/L (17-59); Bilirubin,Total 0.7 mg/dl (0.2-1.3); Blood Urea Nitrogen 20 mg/dl (9-20); Calcium 8.8 mg/dl (8.4-10.2); Carbon Dioxide 25 mmol/L (22.0-30.0); Chloride 106 mmol/L (98-107); Estimated Glomerular Filt Rate 93 ml/min (>60); GFR (African American) 112 ML/MIN (>60); Globulin 3.2 g/dL (1.3-3.2); Glucose 101 mg/dl (74-100); Potassium 4.1 mmoL/L (3.5-5.1); Sodium 138 mmol/L (136-145); Total Protein,Serum 7.5 g/dl (6.3-8.2)
[2022-09-09 10:48] LABS: C-Reactive Protein 21.8 mg/L (0-4)
[2022-09-09 11:00] LABS: Erythrocyte Sedimentation Rate 8 mm/hr (0-15)
[2022-09-12 14:11] LABS: CK-BB 0 % (0); CK-MB 0 % (0-3); CK-MM 100 % (97-100); Creatine Kinase,Total,Serum 149 U/L (49-439); Macro Type 1 0 % (Not Observed); Macro Type 2 0 % (Not Observed)
== END 2022-09-09 08:50 | disposition home or self-care (01) ==
LOC: INF 08:27
PROVIDERS: PCP Physician Assistant Surgical; Visit Provider Podiatrist
DX: M86.171 Other acute osteomyelitis, right ankle and foot (principal); A49.02 Methicillin resistant Staphylococcus aureus infection, unspecified site; Z45.2 Encounter for adjustment and management of vascular access device
CPT/HCPCS: 36415; 80053; 82550; 82552; 85025; 85651; 86140

== ENCOUNTER → 2022-09-12 09:18 | Outpatient (CLI) | payer BC, SELFPAY ==
[2022-09-12 10:18] LABS: Basophils # 0.1 K/mm3 (0-0.2); Basophils % 0.8 % (0.1-2.0); Eosinophils # 0.3 K/mm3 (0.0-0.4); Eosinophils % 4.3 % (0.1-12.0); Hematocrit 45.4 % (42.0-52.0); Hemoglobin 14.9 g/dL (14.1-18.0); Lymphocytes # 1.5 K/mm3 (0.7-4.5); Lymphocytes % 23.7 % (10-50); Mean Corpuscular HGB Conc 32.9 g/dL (31.8-35.4); Mean Corpuscular Hemoglobin 26.9 pg (27.0-31.2); Mean Corpuscular Volume 81.8 fl (80-94); Mean Platelet Volume 8.2 fl (7.4-10.4); Monocytes # 0.5 K/mm3 (0.1-1.0); Neutrophils # 3.9 K/mm3 (1.8-7.8); Neutrophils % 63.4 % (37.0-80.0); Platelet Count 325 K/mm3 (142-424); Red Blood Count 5.55 M/mm3 (4.60-6.20); Red Cell Distribution Width 14.1 % (11.5-17.5); White Blood Count 6.2 K/mm3 (4.8-10.8)
[2022-09-12 10:36] LABS: Chloride 105 mmol/L (98-107); Sodium 139 mmol/L (136-145)
[2022-09-12 10:38] LABS: Blood Urea Nitrogen 19 mg/dl (9-20); Estimated Glomerular Filt Rate 93 ml/min (>60); GFR (African American) 112 ML/MIN (>60)
[2022-09-12 10:39] LABS: Alanine Aminotransferase 27 U/L (12-78); Albumin Level 4.2 g/dl (3.5-5.0); Albumin/Globulin Ratio 1.3 (1.1-1.8); Alkaline Phosphatase 77 U/L (38-126); Aspartate Amino Transferase 32 U/L (17-59); Bilirubin,Total 0.4 mg/dl (0.2-1.3); Calcium 8.6 mg/dl (8.4-10.2); Carbon Dioxide 23 mmol/L (22.0-30.0); Globulin 3.3 g/dL (1.3-3.2); Glucose 123 mg/dl (74-100); Total Protein,Serum 7.5 g/dl (6.3-8.2)
[2022-09-12 10:45] LABS: C-Reactive Protein 16.8 mg/L (0-4)
[2022-09-12 11:57] LABS: Erythrocyte Sedimentation Rate 22 mm/hr (0-15)
[2022-09-13 15:29] LABS: CK-BB 0 % (0); CK-MB 0 % (0-3); CK-MM 100 % (97-100); Creatine Kinase,Total,Serum 136 U/L (49-439); Macro Type 1 0 % (Not Observed); Macro Type 2 0 % (Not Observed)
== END ==
PROVIDERS: PCP Family Medicine; Visit Provider Physician Assistant Surgical
DX: M86.171 Other acute osteomyelitis, right ankle and foot (principal); A49.02 Methicillin resistant Staphylococcus aureus infection, unspecified site
CPT/HCPCS: 36415; 80053; 82550; 82552; 85025; 85651; 86140

== ENCOUNTER 2022-09-16 08:32 | Outpatient (CLI) | payer BC, SELFPAY ==
[2022-09-16 09:20] LABS: Basophils # 0.1 K/mm3 (0-0.2); Basophils % 0.9 % (0.1-2.0); Eosinophils # 0.2 K/mm3 (0.0-0.4); Eosinophils % 2.9 % (0.1-12.0); Hematocrit 46.7 % (42.0-52.0); Lymphocytes # 1.9 K/mm3 (0.7-4.5); Lymphocytes % 26.7 % (10-50); Mean Corpuscular HGB Conc 32.1 g/dL (31.8-35.4); Mean Corpuscular Volume 84.1 fl (80-94); Mean Platelet Volume 7.7 fl (7.4-10.4); Monocytes # 0.6 K/mm3 (0.1-1.0); Monocytes % 8.5 % (1.7-9.3); Neutrophils # 4.3 K/mm3 (1.8-7.8); Platelet Count 304 K/mm3 (142-424); Red Blood Count 5.55 M/mm3 (4.60-6.20); Red Cell Distribution Width 14.1 % (11.5-17.5)
[2022-09-16 09:48] LABS: Chloride 104 mmol/L (98-107); Potassium 4.3 mmoL/L (3.5-5.1); Sodium 138 mmol/L (136-145)
[2022-09-16 09:50] LABS: Blood Urea Nitrogen 24 mg/dl (9-20); Estimated Glomerular Filt Rate 93 ml/min (>60); GFR (African American) 112 ML/MIN (>60)
[2022-09-16 09:51] LABS: Alanine Aminotransferase 25 U/L (12-78); Albumin Level 4.1 g/dl (3.5-5.0); Albumin/Globulin Ratio 1.3 (1.1-1.8); Alkaline Phosphatase 79 U/L (38-126); Anion Gap 11.3 mEq/L (5-15); Aspartate Amino Transferase 33 U/L (17-59); Bilirubin,Total 0.6 mg/dl (0.2-1.3); Calcium 8.6 mg/dl (8.4-10.2); Carbon Dioxide 27 mmol/L (22.0-30.0); Globulin 3.1 g/dL (1.3-3.2); Glucose 92 mg/dl (74-100); Total Protein,Serum 7.2 g/dl (6.3-8.2)
[2022-09-16 09:56] LABS: C-Reactive Protein 26.3 mg/L (0-4)
[2022-09-16 12:26] LABS: Erythrocyte Sedimentation Rate 19 mm/hr (0-15)
[2022-09-19 16:14] LABS: CK-BB 0 % (0); CK-MB 0 % (0-3); CK-MM 100 % (97-100); Creatine Kinase,Total,Serum 111 U/L (49-439); Macro Type 1 0 % (Not Observed); Macro Type 2 0 % (Not Observed)
== END 2022-09-16 08:55 | disposition home or self-care (01) ==
LOC: INF 08:32
PROVIDERS: Physician Assistant Surgical; PCP Family Medicine; Visit Provider Podiatrist
DX: M86.171 Other acute osteomyelitis, right ankle and foot (principal); Z45.2 Encounter for adjustment and management of vascular access device; A49.02 Methicillin resistant Staphylococcus aureus infection, unspecified site
CPT/HCPCS: 36415; 80053; 82550; 82552; 85025; 85651; 86140; 96523

== ENCOUNTER 2022-09-19 07:58 | Outpatient (CLI) | payer BC, SELFPAY ==
[2022-09-19 08:48] LABS: Basophils # 0.1 K/mm3 (0-0.2); Basophils % 0.7 % (0.1-2.0); Eosinophils # 0.3 K/mm3 (0.0-0.4); Eosinophils % 4.4 % (0.1-12.0); Hemoglobin 14.7 g/dL (14.1-18.0); Lymphocytes # 1.5 K/mm3 (0.7-4.5); Lymphocytes % 22.6 % (10-50); Mean Corpuscular HGB Conc 32.8 g/dL (31.8-35.4); Mean Corpuscular Hemoglobin 26.5 pg (27.0-31.2); Mean Corpuscular Volume 80.9 fl (80-94); Mean Platelet Volume 8.1 fl (7.4-10.4); Monocytes # 0.5 K/mm3 (0.1-1.0); Neutrophils # 4.2 K/mm3 (1.8-7.8); Neutrophils % 64.3 % (37.0-80.0); Platelet Count 307 K/mm3 (142-424); Red Blood Count 5.56 M/mm3 (4.60-6.20); Red Cell Distribution Width 13.9 % (11.5-17.5); White Blood Count 6.5 K/mm3 (4.8-10.8)
[2022-09-19 09:21] LABS: Chloride 107 mmol/L (98-107); Potassium 4.3 mmoL/L (3.5-5.1); Sodium 138 mmol/L (136-145)
[2022-09-19 09:24] LABS: Alanine Aminotransferase 25 U/L (12-78); Albumin Level 3.9 g/dl (3.5-5.0); Albumin/Globulin Ratio 1.3 (1.1-1.8); Alkaline Phosphatase 80 U/L (38-126); Anion Gap 11.3 mEq/L (5-15); Aspartate Amino Transferase 32 U/L (17-59); Bilirubin,Total 0.4 mg/dl (0.2-1.3); Blood Urea Nitrogen 20 mg/dl (9-20); Calcium 8.5 mg/dl (8.4-10.2); Carbon Dioxide 24 mmol/L (22.0-30.0); Estimated Glomerular Filt Rate 106 ml/min (>60); GFR (African American) 128 ML/MIN (>60); Glucose 94 mg/dl (74-100); Total Protein,Serum 6.9 g/dl (6.3-8.2)
[2022-09-19 09:30] LABS: C-Reactive Protein 24.4 mg/L (0-4)
[2022-09-19 12:57] LABS: Erythrocyte Sedimentation Rate 16 mm/hr (0-15)
[2022-09-20 15:52] LABS: CK-BB 0 % (0); CK-MB 0 % (0-3); CK-MM 100 % (97-100); Creatine Kinase,Total,Serum 162 U/L (49-439); Macro Type 1 0 % (Not Observed); Macro Type 2 0 % (Not Observed)
== END 2022-09-19 11:30 | disposition home or self-care (01) ==
PROVIDERS: PCP Family Medicine; Visit Provider Physician Assistant Surgical
DX: M86.171 Other acute osteomyelitis, right ankle and foot (principal); A49.02 Methicillin resistant Staphylococcus aureus infection, unspecified site
CPT/HCPCS: 36415; 80053; 82550; 82552; 85025; 85651; 86140; 96523

== ENCOUNTER → 2022-09-26 07:44 | Outpatient (CLI) | payer BC, SELFPAY ==
[2022-09-26 08:23] LABS: Basophils # 0.1 K/mm3 (0-0.2); Basophils % 0.8 % (0.1-2.0); Eosinophils # 0.3 K/mm3 (0.0-0.4); Eosinophils % 3.5 % (0.1-12.0); Hematocrit 47.2 % (42.0-52.0); Hemoglobin 15.3 g/dL (14.1-18.0); Lymphocytes # 1.7 K/mm3 (0.7-4.5); Lymphocytes % 19.2 % (10-50); Mean Corpuscular HGB Conc 32.4 g/dL (31.8-35.4); Mean Corpuscular Hemoglobin 26.3 pg (27.0-31.2); Mean Corpuscular Volume 81.2 fl (80-94); Mean Platelet Volume 7.9 fl (7.4-10.4); Monocytes # 0.6 K/mm3 (0.1-1.0); Monocytes % 6.5 % (1.7-9.3); Neutrophils # 6.2 K/mm3 (1.8-7.8); Platelet Count 375 K/mm3 (142-424); Red Blood Count 5.81 M/mm3 (4.60-6.20); Red Cell Distribution Width 13.8 % (11.5-17.5); White Blood Count 8.8 K/mm3 (4.8-10.8)
[2022-09-26 08:40] LABS: Alanine Aminotransferase 30 U/L (12-78); Albumin/Globulin Ratio 1.3 (1.1-1.8); Alkaline Phosphatase 87 U/L (38-126); Anion Gap 12.2 mEq/L (5-15); Aspartate Amino Transferase 31 U/L (17-59); Bilirubin,Total 0.4 mg/dl (0.2-1.3); Blood Urea Nitrogen 20 mg/dl (9-20); Calcium 8.6 mg/dl (8.4-10.2); Carbon Dioxide 27 mmol/L (22.0-30.0); Chloride 102 mmol/L (98-107); Estimated Glomerular Filt Rate 93 ml/min (>60); GFR (African American) 112 ML/MIN (>60); Globulin 3.1 g/dL (1.3-3.2); Glucose 98 mg/dl (74-100); Potassium 4.2 mmoL/L (3.5-5.1); Sodium 137 mmol/L (136-145); Total Protein,Serum 7.1 g/dl (6.3-8.2)
[2022-09-26 08:47] LABS: C-Reactive Protein 34.1 mg/L (0-4)
[2022-09-26 08:57] LABS: Erythrocyte Sedimentation Rate 11 mm/hr (0-15)
[2022-09-27 14:14] LABS: CK-BB 0 % (0); CK-MB 0 % (0-3); CK-MM 100 % (97-100); Creatine Kinase,Total,Serum 105 U/L (49-439); Macro Type 1 0 % (Not Observed); Macro Type 2 0 % (Not Observed)
== END | disposition home or self-care (01) ==
PROVIDERS: PCP Family Medicine; Visit Provider Physician Assistant Surgical
DX: M86.171 Other acute osteomyelitis, right ankle and foot (principal); A49.02 Methicillin resistant Staphylococcus aureus infection, unspecified site
CPT/HCPCS: 36415; 80053; 82550; 82552; 85025; 85651; 86140

== ENCOUNTER → 2022-10-04 12:34 | Outpatient (CLI) | payer BC, SELFPAY ==
[2022-10-04 12:59] LABS: Basophils # 0.1 K/mm3 (0-0.2); Basophils % 0.7 % (0.1-2.0); Eosinophils # 0.3 K/mm3 (0.0-0.4); Hematocrit 44.6 % (42.0-52.0); Hemoglobin 14.4 g/dL (14.1-18.0); Lymphocytes # 1.8 K/mm3 (0.7-4.5); Lymphocytes % 17.8 % (10-50); Mean Corpuscular HGB Conc 32.3 g/dL (31.8-35.4); Mean Corpuscular Hemoglobin 25.9 pg (27.0-31.2); Mean Platelet Volume 7.4 fl (7.4-10.4); Monocytes # 0.6 K/mm3 (0.1-1.0); Monocytes % 5.9 % (1.7-9.3); Neutrophils # 7.4 K/mm3 (1.8-7.8); Neutrophils % 72.6 % (37.0-80.0); Platelet Count 396 K/mm3 (142-424); Red Blood Count 5.58 M/mm3 (4.60-6.20); Red Cell Distribution Width 13.6 % (11.5-17.5); White Blood Count 10.1 K/mm3 (4.8-10.8)
[2022-10-04 13:25] LABS: Alanine Aminotransferase 27 U/L (12-78); Albumin Level 3.9 g/dl (3.5-5.0); Albumin/Globulin Ratio 1.3 (1.1-1.8); Alkaline Phosphatase 98 U/L (38-126); Aspartate Amino Transferase 28 U/L (17-59); Bilirubin,Total 0.6 mg/dl (0.2-1.3); Blood Urea Nitrogen 16 mg/dl (9-20); Calcium 8.4 mg/dl (8.4-10.2); Carbon Dioxide 28 mmol/L (22.0-30.0); Chloride 103 mmol/L (98-107); Estimated Glomerular Filt Rate 82 ml/min (>60); GFR (African American) 99 ML/MIN (>60); Globulin 3.1 g/dL (1.3-3.2); Glucose 88 mg/dl (74-100); Sodium 138 mmol/L (136-145)
[2022-10-04 13:34] LABS: Erythrocyte Sedimentation Rate 50 mm/hr (0-15)
[2022-10-06 16:49] LABS: CK-BB 0 % (0); CK-MB 0 % (0-3); CK-MM 100 % (97-100); Creatine Kinase,Total,Serum 90 U/L (49-439); Macro Type 1 0 % (Not Observed); Macro Type 2 0 % (Not Observed)
== END ==
PROVIDERS: PCP Family Medicine; Visit Provider Physician Assistant Surgical
DX: M86.171 Other acute osteomyelitis, right ankle and foot (principal); A49.02 Methicillin resistant Staphylococcus aureus infection, unspecified site
CPT/HCPCS: 36415; 80053; 82550; 82552; 85025; 85651; 86140

== ENCOUNTER 2022-10-04 19:25 | Inpatient (IN) | payer BC, SELFPAY ==
[2022-10-04] VITALS (9 sets, daily range): BP systolic 113–147; BP diastolic 53–93; PULSE 81–97; RESP 18–20; TEMP 36.1–37.2; O2SAT 93–98; BMI 41.8
[2022-10-04 20:13] LABS: Chloride 102 mmol/L (98-107); Potassium 3.9 mmoL/L (3.5-5.1); Sodium 138 mmol/L (136-145)
[2022-10-04 20:14] LABS: Basophils # 0.1 K/mm3 (0-0.2); Basophils % 0.6 % (0.1-2.0); Eosinophils # 0.3 K/mm3 (0.0-0.4); Eosinophils % 2.2 % (0.1-12.0); Hematocrit 46.7 % (42.0-52.0); Hemoglobin 15.4 g/dL (14.1-18.0); Lymphocytes # 1.9 K/mm3 (0.7-4.5); Lymphocytes % 15.5 % (10-50); Mean Corpuscular Hemoglobin 26.6 pg (27.0-31.2); Mean Corpuscular Volume 80.6 fl (80-94); Mean Platelet Volume 8.4 fl (7.4-10.4); Monocytes # 0.7 K/mm3 (0.1-1.0); Monocytes % 5.8 % (1.7-9.3); Neutrophils # 9.3 K/mm3 (1.8-7.8); Neutrophils % 75.9 % (37.0-80.0); Platelet Count 399 K/mm3 (142-424); Red Blood Count 5.79 M/mm3 (4.60-6.20); Red Cell Distribution Width 13.6 % (11.5-17.5); White Blood Count 12.2 K/mm3 (4.8-10.8)
[2022-10-04 20:16] LABS: Alanine Aminotransferase 33 U/L (12-78); Albumin Level 4.4 g/dl (3.5-5.0); Albumin/Globulin Ratio 1.1 (1.1-1.8); Alkaline Phosphatase 107 U/L (38-126); Anion Gap 13.9 mEq/L (5-15); Aspartate Amino Transferase 37 U/L (17-59); Bilirubin,Total 0.7 mg/dl (0.2-1.3); Blood Urea Nitrogen 17 mg/dl (9-20); Calcium 8.9 mg/dl (8.4-10.2); Carbon Dioxide 26 mmol/L (22.0-30.0); Creatinine Clearance Estimated 102 mL/min (50-200); Estimated Glomerular Filt Rate 82 ml/min (>60); GFR (African American) 99 ML/MIN (>60); Globulin 4.1 g/dL (1.3-3.2); Glucose 108 mg/dl (74-100); Total Protein,Serum 8.5 g/dl (6.3-8.2)
--- NOTE | 2022-10-04 20:26 | PC.NURSE ---
page dr quinones @ this time
--- NOTE | 2022-10-04 20:26 | HMH.EDWNDL ---
Discharge Plan Disposition Patient Disposition: Admitted As Inpatient Chief Complaint: Wound/Laceration Clinical Impressions Clinical Impression: Acute osteomyelitis of right calcaneus Discharge ED Provider: J Carlos (ED),Aydin Macias Wound/Laceration HPI General Chief Complaint: Wound/Laceration Stated Complaint: Surg 09/30 foot Fever Time Seen by Provider: 10/04/22 20:27 Mode of Arrival: Ambulatory Source of Information: Patient, Spouse and Medical Record Limitations: Physical Limitations Description of Symptoms (Recalled from ER Triage Doc. by RN): Pt has had right foot osteomylitis since jun 2022, [address] Ashton, last one on Monday (washout). Pt currently has ZIA PICC line receiving Vanc twice a day and oral flagyl. Pt states Dr Dean advised him to come in to ER tonight. Pain 10/17 History of Present Illness HPI narrative: pt with rt foot osteo and on iv abx - saw ortho today and has fever and inc pain to area - has had multiple surg to foot Onset (ago): day(s) Extremity Location: Right: foot Place: home Patient tetanus UTD: Yes Context: other (infection) Associated symptoms: fever Related Data Home Medications Medication Instructions Recorded Confirmed rivaroxaban 15 mg tablet (Xarelto) 20 mg PO DAILY blood thinner 08/05/22 10/04/22 fluconazole 100 mg tablet 100 mg PO QID Infection 10/04/22 10/04/22 Previous Rx's Medication Instructions Recorded Vancomycin HCl [Vancomycin 1000mg 166.667 mls/hr IV Q12 07/12/22 vial] 2,750 mg oxycodone 5 mg tablet 5 mg PO Q4H PRN pain #30 tabs 09/23/22 ondansetron 8 mg disintegrating 8 mg PO Q8H PRN nausea and 10/04/22 tablet vomiting #20 tabs Allergies Allergy/AdvReac Type Severity Reaction Status Date / Time Latex, Natural Rubber Allergy Mild cooper skin Verified 10/04/22 13:06 cephalexin [From Keflex] AdvReac Mild Vomiting Verified 10/04/22 13:06 [facility] Disclaimer: The information contained in this section may have been updated after the patient was seen, as this information can be updated by other users. 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 Surgical History History of foot surgery Hx of surgical amputation of finger 7 surgeries to finger/partial amputation Previous back surgery Status post tendon repair left ankle Family History Other Hypertension Social History Smoking Status: Never smoker alcohol intake: never current occupational status: employed Travel in the last 8 weeks: None ROS Obtained: Yes All systems reviewed & no additional complaints except as documented Physical Exam General General appearance: alert and obese Head Head exam: normocephalic Eye Eye exam: Present PERRL and EOMI ENT ENT exam: Present mucous membranes moist Neck Neck exam: Present trachea midline Respiratory Respiratory exam: Absent respiratory distress Cardiovascular Cardiovascular exam: Present regular rate Abdominal Exam Abdominal exam: Present soft Expanded Lower Extremity Exam Right: Ankle exam: Present tenderness; Absent full ROM Foot/toe exam: Present tenderness and other (has sutures noted ); Absent full ROM Neurological Exam Neurological exam: Present alert, oriented X3 and CN II-XII intact; Absent motor sensory deficit Psychiatric Psychiatric exam: Present normal affect Skin Skin exam: Absent rash Medical Decision Making Medical Records Medical records reviewed: Yes I reviewed the patient's
[2022-10-04 20:49] LABS: C-Reactive Protein 88.8 mg/L (0-4)
[2022-10-04 20:51] LABS: Lactic Acid 0.8 mmol/L (0.7-2.1)
--- NOTE | 2022-10-04 20:57 | PC.NURSE ---
spoke with dr martinez who is covering for [facility]. pt to be admitted to [facility].
--- NOTE | 2022-10-04 20:57 | PC.NURSE ---
dr quinones at bedside.
[2022-10-04 20:59] LABS: Coronavirus 19, PCR Not Detected (NotDetected); Influenza A, PCR Not Detected (NotDetected); Influenza B, PCR Not Detected (NotDetected)
--- NOTE | 2022-10-04 21:05 | PC.NURSE ---
Pt assigned to room 207. Admissions notified of bed assignment
--- NOTE | 2022-10-04 21:10 | PC.NURSE ---
received call from dr quinones's PA who requested blood cultures: anaerobic, aerobic,and fungal be added to his blood work. anaerobic and aerobic were already obtained, however contacted lab (spoke with boogie) who stated they do not do fungal blood cultures here, and suggested FUNGAL serum cultures.
--- NOTE | 2022-10-04 21:12 | PC.NURSE ---
fungal serum blood work will not be instant per [facility].
--- NOTE | 2022-10-04 21:27 | PC.NURSE ---
Rounded on patient, no needs voiced at this time.
--- NOTE | 2022-10-04 21:39 | EXP.ORTH.CON ---
History of Present Illness *Admission Date: 10/04/22 *Reason for visit:: Right calcaneal osteomyelitis *History of present illness: 42-year-old male with right calcaneal osteomyelitis following minimally invasive Adiel's resection, Achilles Tenex and platelet rich plasma injection. He is undergone a total of 7 surgeries since that time for multiple debridement and irrigation procedure, antibiotic cement placement. He most recently underwent debridement irrigation with primary wound closure last Monday. He has been on IV antibiotics since June, daptomycin and now vancomycin. Intraoperative cultures sent on Monday did not grow MRSA, but were positive for Neelima albicans on 2 separate cultures. He is continuing IV antibiotics, is on oral antifungal medication and is undergoing hyperbaric oxygen therapy. I saw him in clinic today with Cherri Bonner PA-C. He had some drainage from his lateral incision but overall felt well. Unfortunately this evening he developed a fever greater than 101 ?F. He subjectively felt better after taking Tylenol but still felt nauseous and overall generally ill. He presented to the emergency department. He had worsened leukocytosis and CRP compared to his labs earlier in the day. [facility] Disclaimer: The information contained in this section may have been updated after the patient was seen, as this information can be updated by other users. 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 Surgical History History of foot surgery Hx of surgical amputation of finger 7 surgeries to finger/partial amputation Previous back surgery Status post tendon repair left ankle Family History Other Hypertension Social History Smoking Status: Never smoker alcohol intake: never current occupational status: employed Travel in the last 8 weeks: None Review of Systems Review of Systems Review of systems:: unable to obtain Constitutional Constitutional: Reports system reviewed and no additional complaints, except as documented Eyes Eyes: Reports system reviewed and no additional complaints, except as documented ENT Ears, Nose, Mouth, and Throat: Reports system reviewed and no additional complaints, except as documented *Cardiovascular Cardiovascular: Reports system reviewed and no additional complaints, except as documented *Respiratory Respiratory: Reports system reviewed and no additional complaints, except as documented *Gastrointestinal Gastrointestinal: Reports system reviewed and no additional complaints, except as documented *Musculoskeletal Musculoskeletal: Reports arthralgias Integumentary/Breasts Skin/Breast: Reports system reviewed and no additional complaints, except as documented *Neurologic Neurologic: Reports system reviewed and no additional complaints, except as documented Psychiatric Psychiatric: Reports system reviewed and no additional complaints, except as documented Endocrine Endocrine: Reports system reviewed and no additional complaints, except as documented Hematologic/Lymphatic Hematologic/Lymphatic: Reports system reviewed and no additional complaints, except as documented Allergic/Immunologic Allergic/Immunologic: Reports system reviewed and no additional complaints, except as documented Meds Home Medications and Allergies Home Medications Medication Instructions Recorded Confirmed Type Vancomycin HCl [Vancomycin 1000mg 166.667 mls/hr IV Q12 07/12/22 10/04/22 Rx vial
--- NOTE | 2022-10-04 22:40 | P.PN_ITS ---
[facility] Disclaimer: The information contained in this section may have been updated after the patient was seen, as this information can be updated by other users. 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 Surgical History History of foot surgery Hx of surgical amputation of finger 7 surgeries to finger/partial amputation Previous back surgery Status post tendon repair left ankle Family History Other Hypertension Social History Smoking Status: Never smoker alcohol intake: never substance use type: denies use current occupational status: employed Travel in the last 8 weeks: None [facility] Anesthesia Checklist Patient Identification Patient Identification: Arm Band and Verbal (Name & ) Structural Data Admitted From: Emergency Dept Planned Operative Procedure/s: Right Foot I&D Verified Documents: Surgical Consent NPO Status Verified Time NPO: 16:00 Additional verifications Anesthesia Reactions: Yes (oxygen level dropped and difficulty urinating after) Hx Blood Transfusions: No Blood Transfusion Reaction: No Airway Assessment C-Spine Mobility Assessed: Yes TMJ Mobility Assessed: Yes Dentition: Good Dentition Neurological Assessment Level of Consciousness: Awake, Alert and Appropriate Anesthesia Plan Anesthesia Risk discussed: Yes ASA Class: II Anesthesia Type: General
--- NOTE | 2022-10-04 23:27 | EXP.ANES.I ---
[facility] Anesthesia Record Part I Anesthesia Record I Intake, IV Amount: 600 Estimated blood loss (mL): 5 Urine output (mL): 0 Blood Products used (#): none Blood Pressure: 113/77 SaO2: 94 Pulse Rate: 84 Respiratory Rate: 20 Temperature: 97 F Patient is:: Drowsy and Stable Stable to PACU at:: 23:25
--- NOTE | 2022-10-04 23:54 | PC.NURSE ---
PT ARRIVED TO FLOOR AT THIS TIME
[2022-10-05] VITALS (16 sets, daily range): BP systolic 95–130; BP diastolic 59–81; PULSE 59–98; RESP 14–18; TEMP 36.1–37.4; O2SAT 92–100; BMI 42.6; BMI 28.0
--- NOTE | 2022-10-05 01:56 | EXP.OP.NOTE ---
Date of procedure: 10/05/22 Pre-op Diagnosis:: Right calcaneal osteomyelitis Post-op Diagnosis:: Same Procedure performed:: 86916: Debridement irrigation of postoperative infection : Calcaneal biopsy [id number]: Wound vacuum-assisted closure Surgeon:: Sushil Dean JR, MD [employer]IV[employer] ENGINEERING TEACHER:: Vance Guerrero Anesthesia: LMA Estimated blood loss (mL): 30 Clinical Note:: 42-year-old male with right calcaneal osteomyelitis. He underwent debridement irrigation with primary wound closure last Monday. He had elevated CRP and leukocytosis that worsened over the 12 hours prior to surgery. He developed fever at home, felt generally unwell. I had a discussion with him and his regarding further management. After discussion of risk, benefits, alternatives, he wished to proceed with repeat right foot debridement, irrigation, wound vacuum-assisted closure. We discussed the risk and benefits of surgery. Risks included but were not limited to pain, bleeding, infection, damage to adjacent structures, need for further surgery, wound healing complications, loss of limb, . Patient expressed verbal consent and written consent was obtained for the above procedure. Operative findings:: No purulence noted. Operative note:: Patient was identified in preoperative holding. Operative site was marked in indelible ink. History, physical, consent were reviewed and updated. Patient was surrendered to the anesthesia team, taken to the operative suite, placed supine on a well-padded operative table. Anesthesia was induced. The operative extremity was prepped and draped in the usual sterile fashion. The operative team donned sterile gowns and gloves and a timeout was called. All in attendance agreed regarding the patient's identity, procedure, operative site. Weight-based dose of antibiotics was given prior to incision. I opened his medial lateral incision, noted serosanguineous fluid, no purulence. I took swab specimens of the deep wound which I sent for aerobic, anaerobic, fungal cultures. I took a deep bone specimen of the calcaneus, sent this for culture as well. I copiously irrigated the wound with Irrisept and saline with pulse lavage. I applied vancomycin powder to the wound. I closed the medial incision, applied a wound vacuum-assisted closure device to the lateral wounds including the plantar lateral wound which I had debrided with a curette. This is noted to have good seal. Condition: stable Disposition: PACU Complications:: None apparent
--- NOTE | 2022-10-05 02:05 | EXP.ORTH.PN ---
Subjective *Date: 10/05/22 *Time: 02:05 Interval history: His pain is improved postoperatively. Ortho Exam (Inpt) Vital signs and Labs for Last 24 Hours: Temp Pulse Resp BP Pulse Ox 97 F L 88 19 113/68 93 L 10/04/22 23:27 10/04/22 23:55 10/04/22 23:55 10/04/22 23:55 10/04/22 23:55 Laboratory Results - last 24 hr 10/04/22 19:38: WBC 12.2 H, RBC 5.79, Hgb 15.4, Hct 46.7, MCV 80.6, MCH 26.6 L, MCHC 33.0, RDW 13.6, Plt Count 399, MPV 8.4, Neut % (Auto) 75.9, Lymph % (Auto) 15.5, [place] % (Auto) 5.8, Eos % (Auto) 2.2, Baso % (Auto) 0.6, Neut # (Auto) 9.3 H, Lymph # (Auto) 1.9, [place] # (Auto) 0.7, Eos # (Auto) 0.3, Baso # (Auto) 0.1 10/04/22 19:38: Sodium 138, Potassium 3.9, Chloride 102, Carbon Dioxide 26, Anion Gap 13.9, BUN 17, Creatinine 1.00, Estimated Creat Clear 102, Estimated GFR 82, Est GFR ( Amer) 99, Glucose 108 H D, Calcium 8.9, Total Bilirubin 0.7, AST 37 D, ALT 33, Alkaline Phosphatase 107, Total Protein 8.5 H, Albumin 4.4 D, Globulin 4.1 H, Albumin/Globulin Ratio 1.1 10/04/22 19:38: C-Reactive Protein 88.8 H, Procalcitonin 0.050 10/04/22 20:30: Lactate 0.8 10/04/22 20:54: SARS-CoV-2 (PCR) Not detected, Influenza A Untype (PCR) Not detected, Influenza Type B (PCR) Not detected I & O for Labs for Last 24 Hours: Intake & Output 10/02/22 10/03/22 10/04/22 10/05/22 23:59 23:59 23:59 23:59 Intake Total 600 / 600 Balance 600 / 600 Weight 300 lb 304 lb 8 oz Head: Present normocephalic and atraumatic ENT: Present mucous membranes moist Neck: Present normal inspection Respiratory: Present normal respiratory effort and symmetric chest movement; Absent accessory muscle use or respiratory distress Cardiac: Present Reg Rate and Rhythm and radial pulses present GI: Present soft; Absent distention Additional Findings:: Right lower extremity: Wound VAC with good seal. Incision is clean, dry, intact. Assessment and Plan *Assessment and plan (1) Acute osteomyelitis of right calcaneus: Status: Acute Category: Medical Code(s): M86.171 - Other acute osteomyelitis, right ankle and foot Plan 42-year-old male status post right calcaneal debridement, irrigation, deep bone culture, wound vacuum-assisted closure. He feels well. Continue vancomycin, antifungal per Dr. Torres. I think he will be okay for discharge today, follow-up Monday for wound VAC change. Continue hyperbaric oxygen as an outpatient.
[2022-10-05 07:03] LABS: Basophils # 0.1 K/mm3 (0-0.2); Basophils % 0.7 % (0.1-2.0); Eosinophils # 0.2 K/mm3 (0.0-0.4); Lymphocytes # 1.5 K/mm3 (0.7-4.5); Mean Platelet Volume 7.4 fl (7.4-10.4); Monocytes # 0.6 K/mm3 (0.1-1.0); Neutrophils # 6.2 K/mm3 (1.8-7.8); Neutrophils % 72.3 % (37.0-80.0); White Blood Count 8.6 K/mm3 (4.8-10.8)
[2022-10-05 07:12] LABS: Eosinophils % 2.2 % (0.1-12.0); Hematocrit 40.5 % (42.0-52.0); Lymphocytes % 17.5 % (10-50); Mean Corpuscular HGB Conc 31.6 g/dL (31.8-35.4); Mean Corpuscular Hemoglobin 25.9 pg (27.0-31.2); Monocytes % 7.4 % (1.7-9.3); Platelet Count 341 K/mm3 (142-424); Red Blood Count 4.93 M/mm3 (4.60-6.20); Red Cell Distribution Width 13.6 % (11.5-17.5)
--- NOTE | 2022-10-05 07:12 | EXP.ANES.II ---
[facility] Anesthesia Record Part II Anesthesia Record Part II Discharge Time: 23:55 Destination: Medical Surgical Department PACU nurse assessment reviewed?: Yes Patient Condition:: Good Anesthesia Complications:: None Swallowing reflex intact?: Yes Cyanosis?: No Blood Pressure: 113/68 Pulse Rate: 88 Temperature: 97 F Mental Status: Alert & Oriented Pain level:: 0 Nausea and/or vomitting:: None Intake, IV Amount: 0
[2022-10-05 07:13] LABS: Hemoglobin 12.8 g/dL (14.1-18.0)
[2022-10-05 07:15] LABS: Anion Gap 9.4 mEq/L (5-15); Blood Urea Nitrogen 19 mg/dl (9-20); Carbon Dioxide 28 mmol/L (22.0-30.0); Chloride 103 mmol/L (98-107); Creatinine Clearance Estimated 99 mL/min (50-200); Estimated Glomerular Filt Rate 82 ml/min (>60); GFR (African American) 99 ML/MIN (>60); Glucose 100 mg/dl (74-100); Potassium 4.4 mmoL/L (3.5-5.1); Sodium 136 mmol/L (136-145)
--- NOTE | 2022-10-05 07:20 | HMH.PHAINT1 ---
Pharmacy Intervention Comments: Reconciled patient's home medications using pharmacy fill records and patient interview.
--- NOTE | 2022-10-05 08:50 | EXP.PHA.CONS ---
Pharmacy Consult Date: 10/05/22 Time: 08:50 Referring provider: DR. KNOWLES Reason for Consult:: VANCOMYCIN DOSING Allergies Allergy/AdvReac Type Severity Reaction Status Date / Time Latex, Natural Rubber Allergy Mild cooper skin Verified 10/04/22 13:06 cephalexin [From Keflex] AdvReac Mild Vomiting Verified 10/04/22 13:06 Home Medications Medication Instructions Recorded Confirmed Type Vancomycin HCl [Vancomycin 1000mg 166.667 mls/hr IV Q12 07/12/22 10/04/22 Rx vial] 2,750 mg oxycodone 5 mg tablet 5 mg PO Q4H PRN pain #30 tabs 09/23/22 10/04/22 Rx fluconazole 100 mg tablet 100 mg PO QID Infection 10/04/22 10/04/22 History lactobacillus combination no.4 3 3,000 mmu cells PO DAILY Supplement 10/05/22 10/05/22 History billion cell capsule (Probiotic) rivaroxaban 20 mg tablet (Xarelto) 20 mg PO DAILY Blood thinner, 10/05/22 10/05/22 History pulmonary embolisms New Prescriptions to Start Prescriptions: Height: 1.8 m Weight: 138.119 kg Laboratory Results:: Laboratory Results - last 24 hr 10/04/22 19:38: WBC 12.2 H, RBC 5.79, Hgb 15.4, Hct 46.7, MCV 80.6, MCH 26.6 L, MCHC 33.0, RDW 13.6, Plt Count 399, MPV 8.4, Neut % (Auto) 75.9, Lymph % (Auto) 15.5, [place] % (Auto) 5.8, Eos % (Auto) 2.2, Baso % (Auto) 0.6, Neut # (Auto) 9.3 H, Lymph # (Auto) 1.9, [place] # (Auto) 0.7, Eos # (Auto) 0.3, Baso # (Auto) 0.1 10/04/22 19:38: Sodium 138, Potassium 3.9, Chloride 102, Carbon Dioxide 26, Anion Gap 13.9, BUN 17, Creatinine 1.00, Estimated Creat Clear 102, Estimated GFR 82, Est GFR ( Amer) 99, Glucose 108 H D, Calcium 8.9, Total Bilirubin 0.7, AST 37 D, ALT 33, Alkaline Phosphatase 107, Total Protein 8.5 H, Albumin 4.4 D, Globulin 4.1 H, Albumin/Globulin Ratio 1.1 10/04/22 19:38: C-Reactive Protein 88.8 H, Procalcitonin 0.050 10/04/22 20:30: Lactate 0.8 10/04/22 20:54: SARS-CoV-2 (PCR) Not detected, Influenza A Untype (PCR) Not detected, Influenza Type B (PCR) Not detected 10/05/22 06:45: WBC 8.6 D, RBC 4.93, Hgb 12.8 L D, Hct 40.5 L, MCV 82.0, MCH 25.9 L, MCHC 31.6 L, RDW 13.6, Plt Count 341, MPV 7.4, Neut % (Auto) 72.3, Lymph % (Auto) 17.5, [place] % (Auto) 7.4, Eos % (Auto) 2.2, Baso % (Auto) 0.7, Neut # (Auto) 6.2, Lymph # (Auto) 1.5, [place] # (Auto) 0.6, Eos # (Auto) 0.2, Baso # (Auto) 0.1 10/05/22 06:45: Sodium 136, Potassium 4.4, Chloride 103, Carbon Dioxide 28, Anion Gap 9.4, BUN 19, Creatinine 1.00, Estimated Creat Clear 99, Estimated GFR 82, Est GFR ( Amer) 99, Glucose 100, Calcium 8.0 L Medical History: Medical History (Updated 10/04/22 @ 21:17 by Aydin Whitman (ED)MD) Acquired hammertoes of both feet Anemia Exposure to 2019 novel coronavirus GERD (gastroesophageal reflux disease) GI bleed Adiel's deformity of right heel Heel spur Laceration of right index finger Migraine Psoriasis Right Achilles bursitis Right Achilles tendinitis 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 Drug selected: Vancomycin Loading dose (mg): Vd (liters): 96.6 (factor used: 0.7 L/kg) Samuel (hr-1): 0.089 Half life (hrs): 7.79 CLvanco=?? 8.597 L/hr Recommended dose: 2250 mg Interval: 12 hrs Infusion time (hrs): 2.0 Predicted peak (mcg/mL): 32.5 Predicted trough (mcg/mL): 13.35 Total body weight is being used for vancomycin dosing. Recommendations: Give Vancomycin 2250 mg q 12 hrs with an expected Cpeak of 32.5 mcg/ml and an expected Ctrough of
--- NOTE | 2022-10-05 10:41 | EXP.ACUTE.PN ---
Subjective *Date: 10/05/22 *Time: 10:41 Interval history: Saw patient this morning, notes reviewed from overnight. Pt went to OR. He feels some better this morning. He has subjective fever this morning. Medical Exam Vital signs and Labs for Last 24 Hours: Vital Signs Temp Pulse Pulse Resp BP BP Pulse Ox 10/05/22 08:00 97.9 F 74 16 122/73 95 10/05/22 09:00 99.0 F 10/05/22 06:45 99.4 F 80 16 113/76 96 10/05/22 05:45 76 16 106/64 L 97 10/05/22 04:45 67 14 95/63 L 95 10/05/22 03:45 98.7 F 61 16 97/66 L 96 10/05/22 02:45 64 18 108/59 L 97 10/05/22 02:15 59 L 16 104/63 L 94 L 10/05/22 01:45 64 18 120/69 97 10/05/22 01:15 63 16 109/71 L 93 L 10/05/22 00:45 80 18 126/76 95 10/05/22 00:30 79 18 120/81 96 10/05/22 00:15 86 16 130/80 92 L 10/05/22 00:00 98.0 F 98 H 18 127/79 92 L 10/04/22 23:45 81 18 114/74 94 L 10/04/22 23:55 88 19 113/68 93 L 10/04/22 23:35 96 H 19 131/72 93 L 10/04/22 23:25 97.0 F L 84 20 113/77 94 L 10/04/22 22:19 98.4 F 84 20 147/84 H 10/04/22 20:11 90 131/53 L 95 10/04/22 20:13 83 20 131/53 L 97 10/04/22 19:36 98.9 F 97 H 20 140/93 H 98 10/05/22 07:13 97 F L 88 113/68 10/04/22 23:27 97 F L 84 20 113/77 Intake and Output 10/04/22 10/05/22 10/05/22 23:59 07:59 15:59 Intake Total 600 / 600 0 / 0 Output Total 400 / 1200 800 / 1200 Balance 600 / 600 -400 / -1200 -800 / -1200 Intake: Intake, Total IV Amount 600 / 600 0 / 0 Output: Output, Urine Amount 400 / 1200 800 / 1200 Other: Weight 300 lb 304 lb 8 oz 304 lb 8 oz Patient Weight 10/05/22 23:59 Weight 304 lb 8 oz Laboratory Results - last 24 hr 10/04/22 19:38: WBC 12.2 H, RBC 5.79, Hgb 15.4, Hct 46.7, MCV 80.6, MCH 26.6 L, MCHC 33.0, RDW 13.6, Plt Count 399, MPV 8.4, Neut % (Auto) 75.9, Lymph % (Auto) 15.5, [place] % (Auto) 5.8, Eos % (Auto) 2.2, Baso % (Auto) 0.6, Neut # (Auto) 9.3 H, Lymph # (Auto) 1.9, [place] # (Auto) 0.7, Eos # (Auto) 0.3, Baso # (Auto) 0.1 10/04/22 19:38: Sodium 138, Potassium 3.9, Chloride 102, Carbon Dioxide 26, Anion Gap 13.9, BUN 17, Creatinine 1.00, Estimated Creat Clear 102, Estimated GFR 82, Est GFR ( Amer) 99, Glucose 108 H D, Calcium 8.9, Total Bilirubin 0.7, AST 37 D, ALT 33, Alkaline Phosphatase 107, Total Protein 8.5 H, Albumin 4.4 D, Globulin 4.1 H, Albumin/Globulin Ratio 1.1 10/04/22 19:38: C-Reactive Protein 88.8 H, Procalcitonin 0.050 10/04/22 20:30: Lactate 0.8 10/04/22 20:54: SARS-CoV-2 (PCR) Not detected, Influenza A Untype (PCR) Not detected, Influenza Type B (PCR) Not detected 10/05/22 06:45: WBC 8.6 D, RBC 4.93, Hgb 12.8 L D, Hct 40.5 L, MCV 82.0, MCH 25.9 L, MCHC 31.6 L, RDW 13.6, Plt Count 341, MPV 7.4, Neut % (Auto) 72.3, Lymph % (Auto) 17.5, [place] % (Auto) 7.4, Eos % (Auto) 2.2, Baso % (Auto) 0.7, Neut # (Auto) 6.2, Lymph # (Auto) 1.5, [place] # (Auto) 0.6, Eos # (Auto) 0.2, Baso # (Auto) 0.1 10/05/22 06:45: Sodium 136, Potassium 4.4, Chloride 103, Carbon Dioxide 28, Anion Gap 9.4, BUN 19, Creatinine 1.00, Estimated Creat Clear 99, Estimated GFR 82, Est GFR ( Amer) 99, Glucose 100, Calcium 8.0 L I & O for Labs for Last 24 Hours: Intake & Output 10/02/22 10/03/22 10/04/22 10/05/22 23:59 23:59 23:59 23:59 Intake Total 600 / 600 0 / 0 Output Total 1200 / 1200 Balance 600 / 600 -1200 / -1200 Weight 300 lb 304 lb 8 oz Constitutional: Present no acute distress Respiratory: Present normal respiratory effort Cardiac: Present Reg Rate and Rhythm Assessment and Plan *Assessment and plan (1) Acute osteomyelitis of right calcaneus: Status: Acute Category: Medical Code(s): M86.171 - Other acute osteomyelitis, right ankle and foot (2) MRSA infection: Status: Acute Category: Medical Code(s): A49.02 - Methicillin resistant Staphylococcus aureus infect
--- NOTE | 2022-10-05 15:40 | EXP.HPDC ---
General Admission date:: 10/04/22 Discharge date: 10/05/22 *Admission Date: 10/04/22 *History of present illness: 42-year-old male with right calcaneal osteomyelitis following minimally invasive Adiel's resection, Achilles Tenex and platelet rich plasma injection.? He is undergone a total of 7 surgeries since that time for multiple debridement and irrigation procedure, antibiotic cement placement.? He most recently underwent debridement irrigation with primary wound closure last Monday.? He has been on IV antibiotics since June, daptomycin and now vancomycin.? Intraoperative cultures sent on Monday did not grow MRSA, but were positive for Neelima albicans on 2 separate cultures.? He is continuing IV antibiotics, is on oral antifungal medication and is undergoing hyperbaric oxygen therapy.? I saw him in clinic today with Cherri Bonner PA-C.? He had some drainage from his lateral incision but overall felt well.? Unfortunately this evening he developed a fever greater than 101 ?F.? He subjectively felt better after taking Tylenol but still felt nauseous and overall generally ill.? He presented to the emergency department.? He had worsened leukocytosis and CRP compared to his labs earlier in the day. I had a discussion with him and his regarding further management.? Given that clinically he feels much worse over the past 12 hours, has worsening leukocytosis and CRP, had a fever at home, after discussion of risk, benefits, alternatives, they are amenable with the plan for right calcaneal debridement, irrigation, wound vacuum-assisted closure.? We discussed the risk and benefits of surgery.? Risks included but were not limited to pain, bleeding, infection, damage to adjacent structures, need for further surgery, wound healing complications, loss of limb, .? Patient expressed verbal consent and written consent was obtained for the above procedure. (above as per Dr. Dean) He was taken to the OR for a debridement irrigation of postoperative infection, calcaneal biopsy, and wound vacuum-assisted closure. At this time he has still run some LGF's and generally does not feel well. The following is a summation of his recent procedures. Status post: 1. Minimally invasive calcaneal ostectomy. 06/24/2022 2. Retrocalcaneal bursectomy, 06/24/2022 3. Tenex distal Achilles debridement, 06/24/2022 4. Platelet rich plasma injection, 06/24/2022 5. Debridement irrigation of surgical site infection, right heel, 07/08/2022 6. Wound vacuum-assisted closure, 07/08/2022 7. Debridement irrigation of surgical site infection, 07/10/2022 8. Antibiotic cement placement. 07/10/2022 9. Wound vacuum-assisted closure, 07/10/2022 10. Debridement irrigation of surgical site infection, 07/18/2022 11. Wound vacuum-assisted closure, 07/18/2022 12. Debridement irrigation of surgical site infection, 08/12/2022 13. Antibiotic cement placement, 08/12/2022 14. Debridement irrigation of surgical site infection, 09/21/2022 15. Antibiotic cement placement, 09/21/2022 16. Debridement irrigation of surgical site infection,? 09/30/2022 [facility] Disclaimer: The information contained in this section may have been updated after the patient was seen, as this information can be updated by other users. 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
[2022-10-05 15:57] LABS: Vancomycin,Trough 23.2 ug/mL (5.0-10.0)
--- NOTE | 2022-10-05 16:21 | EXP.PHA.CONS ---
Pharmacy Consult Date: 10/05/22 Time: 16:21 Referring provider: DR BURKETT Reason for Consult:: VANCOMYCIN TROUGH LEVEL OBTAINED Allergies Allergy/AdvReac Type Severity Reaction Status Date / Time Latex, Natural Rubber Allergy Mild cooper skin Verified 10/04/22 13:06 cephalexin [From Keflex] AdvReac Mild Vomiting Verified 10/04/22 13:06 Home Medications Medication Instructions Recorded Confirmed Type Vancomycin HCl [Vancomycin 1000mg 166.667 mls/hr IV Q12 07/12/22 10/04/22 Rx vial] 2,750 mg oxycodone 5 mg tablet 5 mg PO Q4H PRN pain #30 tabs 09/23/22 10/04/22 Rx fluconazole 100 mg tablet 100 mg PO QID Infection 10/04/22 10/04/22 History lactobacillus combination no.4 3 3,000 mmu cells PO DAILY Supplement 10/05/22 10/05/22 History billion cell capsule (Probiotic) rivaroxaban 20 mg tablet (Xarelto) 20 mg PO DAILY Blood thinner, 10/05/22 10/05/22 History pulmonary embolisms New Prescriptions to Start Prescriptions: Height: 1.8 m Weight: 90.718 kg Laboratory Results:: Laboratory Results - last 24 hr 10/04/22 19:38: WBC 12.2 H, RBC 5.79, Hgb 15.4, Hct 46.7, MCV 80.6, MCH 26.6 L, MCHC 33.0, RDW 13.6, Plt Count 399, MPV 8.4, Neut % (Auto) 75.9, Lymph % (Auto) 15.5, [place] % (Auto) 5.8, Eos % (Auto) 2.2, Baso % (Auto) 0.6, Neut # (Auto) 9.3 H, Lymph # (Auto) 1.9, [place] # (Auto) 0.7, Eos # (Auto) 0.3, Baso # (Auto) 0.1 10/04/22 19:38: Sodium 138, Potassium 3.9, Chloride 102, Carbon Dioxide 26, Anion Gap 13.9, BUN 17, Creatinine 1.00, Estimated Creat Clear 102, Estimated GFR 82, Est GFR ( Amer) 99, Glucose 108 H D, Calcium 8.9, Total Bilirubin 0.7, AST 37 D, ALT 33, Alkaline Phosphatase 107, Total Protein 8.5 H, Albumin 4.4 D, Globulin 4.1 H, Albumin/Globulin Ratio 1.1 10/04/22 19:38: C-Reactive Protein 88.8 H, Procalcitonin 0.050 10/04/22 20:30: Lactate 0.8 10/04/22 20:54: SARS-CoV-2 (PCR) Not detected, Influenza A Untype (PCR) Not detected, Influenza Type B (PCR) Not detected 10/05/22 06:45: WBC 8.6 D, RBC 4.93, Hgb 12.8 L D, Hct 40.5 L, MCV 82.0, MCH 25.9 L, MCHC 31.6 L, RDW 13.6, Plt Count 341, MPV 7.4, Neut % (Auto) 72.3, Lymph % (Auto) 17.5, [place] % (Auto) 7.4, Eos % (Auto) 2.2, Baso % (Auto) 0.7, Neut # (Auto) 6.2, Lymph # (Auto) 1.5, [place] # (Auto) 0.6, Eos # (Auto) 0.2, Baso # (Auto) 0.1 10/05/22 06:45: Sodium 136, Potassium 4.4, Chloride 103, Carbon Dioxide 28, Anion Gap 9.4, BUN 19, Creatinine 1.00, Estimated Creat Clear 99, Estimated GFR 82, Est GFR ( Amer) 99, Glucose 100, Calcium 8.0 L 10/05/22 14:30: Vancomycin Trough 23.2 H Medical History: Medical History (Updated 10/05/22 @ 10:45 by Macario Burkett MD) Acquired hammertoes of both feet Anemia Exposure to 2019 novel coronavirus GERD (gastroesophageal reflux disease) GI bleed Adiel's deformity of right heel Heel spur Laceration of right index finger Migraine Psoriasis Right Achilles bursitis Right Achilles tendinitis 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 PATIENT WAS TO BE DISCHARGED BACK HOME ON VANCOMYCIN IV THERAPY. DR BURKETT UNSURE WHO IS CURRENTLY MANAGING OUTPATIENT IV ANTIBIOTICS BUT WOULD CHECK WITH PATIENT'S NURSE TO SEE. BASED ON TROUGH LEVEL OBTAINED, I WOULD RECOMMEND ADJUSTING OUTPATIENT THERAPY MENTIONED BELOW. Pharmacokinetic dosing service Weight: 90.718 Kilograms Vancomycin single level analysis: Current dose being given: 2250 mg Current dosing interval: 12 hrs Current infusion time (hrs): 2 Single level Trough Data: Trough level obtained: 23.2 mcg/ml Timing of trough - # of hrs before next dose: 0.5 Hrs Desired peak: 35 mcg/ml Desired trough: 12.5 mcg/ml Estimated PK Parameters: New rate constant (aaron): 0.081 hr-1 Half-life: 8.56 Hours Vd from levels: 63.50 Liters (
--- NOTE | 2022-10-06 11:14 | CARE MANAGER ---
Was contacted by Soumya from A office. They received results from [facility]. I contacted Dr. Torres's office and sent lab reports to them as they are managing patient's antibiotics. LU Liriano
--- NOTE | 2022-10-06 15:06 | CARE MANAGER ---
Contacted patient related to hospital discharge. He states he is doing well. He denies any questions or concerns. He is aware of his follow up appointments. LU Liriano
[2022-10-09 18:07] LABS: Aspergillus flavus Negative (Neg:<1:1); Aspergillus fumigatus Negative (Neg:<1:1); Aspergillus niger Negative (Neg:<1:1); Blastomyces Antibody Negative (Neg:<1:1)
== END 2022-10-05 15:40 | disposition home or self-care (01) | DRG 478 ==
LOC: ER 20:35 → 2ND 21:17
PROVIDERS: Orthopaedic Surgery; Physician Assistant Surgical; Admitting Provider Family Medicine; Emergency Provider Emergency Medicine; PCP Family Medicine; Visit Provider Family Medicine
DX: M86.171 Other acute osteomyelitis, right ankle and foot (principal); B37.89 Other sites of candidiasis; A49.02 Methicillin resistant Staphylococcus aureus infection, unspecified site; K21.9 Gastro-esophageal reflux disease without esophagitis
CPT/HCPCS: 20240; 36415; 80048; 80053; 80202; 83605; 84145; 85025; 86140; 86606; 86612; 87040; 87075; 87102; 87205; 87206; 88304; C9803; J2405; J3370; U0003; U0005

== ENCOUNTER 2022-10-07 11:27 | Outpatient (CLI) | payer BC, SELFPAY | END 2022-10-07 12:02 | disposition home or self-care (01) | LOC: INF 11:28 | PROVIDERS: PCP Family Medicine; Visit Provider Physician Assistant Surgical | DX: M86.171 Other acute osteomyelitis, right ankle and foot (principal); Z45.2 Encounter for adjustment and management of vascular access device | CPT/HCPCS: 36592 ==

== ENCOUNTER → 2022-10-10 10:32 | Outpatient (CLI) | payer BC, SELFPAY ==
[2022-10-10 12:07] LABS: Basophils % 0.3 % (0.1-2.0); Eosinophils # 0.2 K/mm3 (0.0-0.4); Eosinophils % 2.2 % (0.1-12.0); Hematocrit 46.3 % (42.0-52.0); Hemoglobin 14.5 g/dL (14.1-18.0); Lymphocytes % 10.8 % (10-50); Mean Corpuscular HGB Conc 31.4 g/dL (31.8-35.4); Mean Corpuscular Hemoglobin 25.3 pg (27.0-31.2); Mean Corpuscular Volume 80.7 fl (80-94); Mean Platelet Volume 8.3 fl (7.4-10.4); Monocytes # 0.5 K/mm3 (0.1-1.0); Monocytes % 5.2 % (1.7-9.3); Neutrophils # 7.2 K/mm3 (1.8-7.8); Neutrophils % 81.4 % (37.0-80.0); Platelet Count 432 K/mm3 (142-424); Red Blood Count 5.74 M/mm3 (4.60-6.20); Red Cell Distribution Width 13.6 % (11.5-17.5); White Blood Count 8.9 K/mm3 (4.8-10.8)
[2022-10-10 12:21] LABS: Alanine Aminotransferase 32 U/L (12-78); Albumin/Globulin Ratio 1.2 (1.1-1.8); Alkaline Phosphatase 115 U/L (38-126); Anion Gap 12.4 mEq/L (5-15); Aspartate Amino Transferase 31 U/L (17-59); Bilirubin,Total 0.5 mg/dl (0.2-1.3); Blood Urea Nitrogen 20 mg/dl (9-20); Calcium 8.5 mg/dl (8.4-10.2); Carbon Dioxide 27 mmol/L (22.0-30.0); Chloride 101 mmol/L (98-107); Estimated Glomerular Filt Rate 73 ml/min (>60); GFR (African American) 89 ML/MIN (>60); Globulin 3.4 g/dL (1.3-3.2); Glucose 100 mg/dl (74-100); Potassium 4.4 mmoL/L (3.5-5.1); Sodium 136 mmol/L (136-145); Total Protein,Serum 7.4 g/dl (6.3-8.2)
[2022-10-10 12:28] LABS: C-Reactive Protein 47.8 mg/L (0-4)
[2022-10-10 12:29] LABS: Vancomycin,Trough 13.8 ug/mL (5.0-10.0)
[2022-10-10 12:52] LABS: Erythrocyte Sedimentation Rate 40 mm/hr (0-15)
[2022-10-13 16:50] LABS: CK-BB 0 % (0); CK-MB 0 % (0-3); CK-MM 100 % (97-100); Creatine Kinase,Total,Serum 73 U/L (49-439); Macro Type 1 0 % (Not Observed); Macro Type 2 0 % (Not Observed)
== END ==
PROVIDERS: PCP Family Medicine; Visit Provider Physician Assistant Surgical
DX: M86.171 Other acute osteomyelitis, right ankle and foot (principal)
CPT/HCPCS: 36415; 80053; 80202; 82550; 82552; 85025; 85651; 86140

== ENCOUNTER 2022-10-14 13:43 | Outpatient (CLI) | payer BC, SELFPAY | END 2022-10-14 13:58 | disposition home or self-care (01) | LOC: INF 13:43 | PROVIDERS: PCP Family Medicine; Visit Provider Orthopaedic Surgery | DX: Z45.2 Encounter for adjustment and management of vascular access device (principal); M86.171 Other acute osteomyelitis, right ankle and foot | CPT/HCPCS: 96523 ==

== ENCOUNTER → 2022-10-17 10:07 | Outpatient (CLI) | payer BC, SELFPAY ==
[2022-10-17 10:44] LABS: Basophils % 0.4 % (0.1-2.0); Eosinophils # 0.3 K/mm3 (0.0-0.4); Eosinophils % 4.1 % (0.1-12.0); Hemoglobin 14.7 g/dL (14.1-18.0); Lymphocytes # 1.2 K/mm3 (0.7-4.5); Lymphocytes % 15.6 % (10-50); Mean Corpuscular HGB Conc 32.7 g/dL (31.8-35.4); Mean Corpuscular Volume 79.5 fl (80-94); Mean Platelet Volume 7.6 fl (7.4-10.4); Monocytes # 0.5 K/mm3 (0.1-1.0); Monocytes % 6.4 % (1.7-9.3); Neutrophils # 5.5 K/mm3 (1.8-7.8); Neutrophils % 73.6 % (37.0-80.0); Platelet Count 355 K/mm3 (142-424); Red Blood Count 5.65 M/mm3 (4.60-6.20); Red Cell Distribution Width 13.5 % (11.5-17.5); White Blood Count 7.5 K/mm3 (4.8-10.8)
[2022-10-17 11:50] LABS: Alanine Aminotransferase 28 U/L (12-78); Albumin Level 3.9 g/dl (3.5-5.0); Albumin/Globulin Ratio 1.2 (1.1-1.8); Alkaline Phosphatase 112 U/L (38-126); Anion Gap 8.2 mEq/L (5-15); Aspartate Amino Transferase 32 U/L (17-59); Bilirubin,Total 0.4 mg/dl (0.2-1.3); Blood Urea Nitrogen 15 mg/dl (9-20); Calcium 8.6 mg/dl (8.4-10.2); Carbon Dioxide 26 mmol/L (22.0-30.0); Chloride 105 mmol/L (98-107); Estimated Glomerular Filt Rate 82 ml/min (>60); GFR (African American) 99 ML/MIN (>60); Globulin 3.3 g/dL (1.3-3.2); Glucose 113 mg/dl (74-100); Potassium 4.2 mmoL/L (3.5-5.1); Sodium 135 mmol/L (136-145); Total Protein,Serum 7.2 g/dl (6.3-8.2)
[2022-10-17 11:55] LABS: Vancomycin,Trough 16.5 ug/mL (5.0-10.0)
[2022-10-17 11:56] LABS: C-Reactive Protein 69.1 mg/L (0-4)
[2022-10-17 12:03] LABS: Erythrocyte Sedimentation Rate 40 mm/hr (0-15)
[2022-10-19 15:10] LABS: CK-BB 0 % (0); CK-MB 0 % (0-3); CK-MM 100 % (97-100); Creatine Kinase,Total,Serum 78 U/L (49-439); Macro Type 1 0 % (Not Observed); Macro Type 2 0 % (Not Observed)
== END ==
PROVIDERS: PCP Family Medicine; Visit Provider Physician Assistant Surgical
DX: M86.171 Other acute osteomyelitis, right ankle and foot (principal); A49.02 Methicillin resistant Staphylococcus aureus infection, unspecified site; B37.9 Candidiasis, unspecified
CPT/HCPCS: 36415; 80053; 80202; 82550; 82552; 85025; 85651; 86140

== ENCOUNTER 2022-10-20 11:47 | Outpatient (CLI) | payer BC, SELFPAY | END 2022-10-20 13:15 | disposition home or self-care (01) | LOC: INF 11:48 | PROVIDERS: PCP Family Medicine; Visit Provider Physician Assistant Surgical | DX: S91.301A Unspecified open wound, right foot, initial encounter (principal); T81.49XA Infection following a procedure, other surgical site, initial encounter | CPT/HCPCS: 96374; G0463 ==

== ENCOUNTER → 2022-10-21 15:55 | Outpatient (CLI) | payer BC, SELFPAY ==
--- NOTE | 2022-10-21 16:06 | XR_ITS ---
FINAL REPORT CLINICAL HISTORY: pre op, hx of PE's COMPARISON: 08/14/2022 FINDINGS: Two views of the chest were obtained. The heart size and pulmonary vascularity are within normal limits. The mediastinum is normal. No acute pulmonary abnormality is identified. There is no pneumothorax. The bony thorax is intact. IMPRESSION: No active cardiopulmonary disease. Reviewed, Interpreted and Dictated by Won Carey III, MD Transcribed by Madiha Ambrosio Authenticated and [facility]
--- NOTE | 2022-10-21 16:06 | ECG_ITS ---
APPROVED REPORT Exam: Resting ECG HR:94 bpm ECG Measurements Heart Rate 94 AXES UT 145 P 39 QRSd 86 QRS 19 QT 336 T 29 QTc 388 Conclusion SINUS RHYTHM WITH SINUS ARRHYTHMIA NORMAL ECG UNCONFIRMED REPORT Electronically signed by : Guido Cain MD 10/22/2022 08:33:05
== END ==
PROVIDERS: PCP Family Medicine; Visit Provider Orthopaedic Surgery
DX: Z01.810 Encounter for preprocedural cardiovascular examination (principal); M86.171 Other acute osteomyelitis, right ankle and foot
CPT/HCPCS: 71046; 93005

== ENCOUNTER → 2022-10-25 08:38 | Outpatient (CLI) | payer BC, SELFPAY ==
[2022-10-25 08:58] LABS: Basophils % 0.6 % (0.1-2.0); Eosinophils # 0.3 K/mm3 (0.0-0.4); Eosinophils % 4.1 % (0.1-12.0); Hemoglobin 14.6 g/dL (14.1-18.0); Lymphocytes # 2.2 K/mm3 (0.7-4.5); Lymphocytes % 30.6 % (10-50); Mean Corpuscular HGB Conc 32.4 g/dL (31.8-35.4); Mean Corpuscular Hemoglobin 25.7 pg (27.0-31.2); Mean Corpuscular Volume 79.5 fl (80-94); Mean Platelet Volume 7.5 fl (7.4-10.4); Monocytes # 0.5 K/mm3 (0.1-1.0); Monocytes % 6.4 % (1.7-9.3); Neutrophils # 4.2 K/mm3 (1.8-7.8); Neutrophils % 58.2 % (37.0-80.0); Platelet Count 339 K/mm3 (142-424); Red Blood Count 5.66 M/mm3 (4.60-6.20); Red Cell Distribution Width 13.9 % (11.5-17.5); White Blood Count 7.2 K/mm3 (4.8-10.8)
[2022-10-25 09:41] LABS: Alanine Aminotransferase 55 U/L (12-78); Albumin/Globulin Ratio 1.2 (1.1-1.8); Alkaline Phosphatase 122 U/L (38-126); Anion Gap 14.2 mEq/L (5-15); Aspartate Amino Transferase 40 U/L (17-59); Bilirubin,Total 0.3 mg/dl (0.2-1.3); Blood Urea Nitrogen 18 mg/dl (9-20); Calcium 8.7 mg/dl (8.4-10.2); Carbon Dioxide 25 mmol/L (22.0-30.0); Chloride 106 mmol/L (98-107); Estimated Glomerular Filt Rate 82 ml/min (>60); GFR (African American) 99 ML/MIN (>60); Globulin 3.4 g/dL (1.3-3.2); Glucose 107 mg/dl (74-100); Potassium 4.2 mmoL/L (3.5-5.1); Sodium 141 mmol/L (136-145); Total Protein,Serum 7.4 g/dl (6.3-8.2)
[2022-10-25 09:46] LABS: C-Reactive Protein 27.2 mg/L (0-4)
[2022-10-25 09:51] LABS: Vancomycin,Trough < 5.0 ug/mL (5.0-10.0)
[2022-10-25 10:22] LABS: Erythrocyte Sedimentation Rate 25 mm/hr (0-15)
[2022-10-27 16:35] LABS: CK-BB 0 % (0); CK-MB 0 % (0-3); CK-MM 100 % (97-100); Creatine Kinase,Total,Serum 111 U/L (49-439); Macro Type 1 0 % (Not Observed); Macro Type 2 0 % (Not Observed)
== END ==
PROVIDERS: PCP Family Medicine; Visit Provider Orthopaedic Surgery
DX: M86.171 Other acute osteomyelitis, right ankle and foot (principal); A49.2 Hemophilus influenzae infection, unspecified site; B37.9 Candidiasis, unspecified
CPT/HCPCS: 36415; 80053; 80202; 82550; 82552; 85025; 85651; 86140

== ENCOUNTER 2022-10-28 07:05 | Inpatient (IN) | payer BC, SELFPAY ==
[2022-10-28] VITALS (20 sets, daily range): BP systolic 115–139; BP diastolic 66–94; PULSE 80–112; RESP 16–22; TEMP 36.8–43; O2SAT 92–98; BMI 41.8; BMI 40.7; BMI 40.8
[2022-10-28 07:21] LABS: Coronavirus 19, PCR Not Detected (NotDetected); Influenza A, PCR Not Detected (NotDetected); Influenza B, PCR Not Detected (NotDetected)
--- NOTE | 2022-10-28 08:08 | EXP.ANES.CKL ---
[facility] Disclaimer: The information contained in this section may have been updated after the patient was seen, as this information can be updated by other users. 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 Surgical History History of foot surgery History of incision and drainage Multiple procedures on right calcaneous Hx of surgical amputation of finger 7 surgeries to finger/partial amputation Previous back surgery Status post tendon repair left ankle Family History Other Hypertension Social History (Updated 10/28/22 @ 07:19 by Denise Posada RN) Smoking Status: Never smoker alcohol intake: current substance use type: denies use current occupational status: employed Travel in the last 8 weeks: None household members: spouse and children housing: house lives independently: No education level: high school caffeine: Yes special davin needs: No agree to transfusion: No do you feel safe at home: Yes victim of physical abuse: No victim of emotional abuse: No victim of sexual abuse: No would you like helpful sources: No [facility] Anesthesia Checklist Patient Identification Patient Identification: Arm Band and Family Structural Data Admitted From: Home Planned Operative Procedure/s: Right BKA Consent for Planned Operative Procedure(s) Verified: Yes Verified Documents: Surgical Consent and History and Physical NPO Status Verified Time NPO: 00:00 Additional verifications Patient : No Anesthesia Reactions: Yes (oxygen level dropped and difficulty urinating after) Hx Blood Transfusions: No Blood Transfusion Reaction: No Cephalosporin Allergy: No Airway Assessment C-Spine Mobility Assessed: Yes TMJ Mobility Assessed: Yes Dentition: Good Dentition Neurological Assessment Level of Consciousness: Awake, Alert, Appropriate and Follows Commands Hx Seizures: No Numbness or tingling in extremities: No Anesthesia Plan Anesthesia Risk discussed: Yes ASA Class: II Anesthesia Type: General w/block Preoperative Comments Pre-Operative Comments: History of PE's, last one in July.
--- NOTE | 2022-10-28 08:36 | HMH.PHAINT1 ---
Pharmacy Intervention Comments: HOME MEDICATION LIST VERIFIED USING LIST FROM OUTPATIENT PHARMACY
--- NOTE | 2022-10-28 12:06 | EXP.ANES.I ---
[facility] Anesthesia Record Part I Anesthesia Record I Intake, IV Amount: 1,500 Estimated blood loss (mL): 100 Urine output (mL): 0 Blood Products used (#): none Blood Pressure: 118/72 SaO2: 92 Pulse Rate: 100 Respiratory Rate: 22 Temperature: 99.5 F Patient is:: Drowsy and Stable Stable to PACU at:: 12:00
--- NOTE | 2022-10-28 12:42 | PC.NURSE ---
PT ARRIVED TO FLOOR BY STRETCHER FROM SURGERY
--- NOTE | 2022-10-28 13:21 | EXP.ACUTE.PN ---
Subjective *Date: 10/28/22 *Time: 13:21 Interval history: Patient is a 42-year-old male with right calcaneal osteomyelitis, MRSA, superimposed Neelima albicans infection.? He is approximately 6 days out from his most recent irrigation, debridement, and application of wound VAC at [facility] on 10/19/[address] Dean.? Intraoperative findings at that time were notable for turbid appearing fluid and soft bone with persistently positive intraoperative cultures.? After discussion with Dr. Dean as well as Dr. Torres, recommendation has been made for right below the knee amputation.? The patient is agreeable and wishes to proceed.? The proposed procedure, risk/benefits, alternatives, and expected perioperative course were discussed in detail.? Risks include but not are not limited to pain, bleeding, infection, damage to adjacent structures, need for further surgery, wound healing complications, loss of limb, DVT/PE, stroke, heart attack, and even .? The patient seems to understand and accept these risk and wishes to proceed with the proposed procedure.? In the meantime he will continue his oral linezolid and fluconazole at the recommendation of Dr. Torres.? I reapplied his wound VAC today in office and adequate seal was noted.? The patient self discontinued his Xarelto approximately 5 days ago; I have discussed the patient's plan of care with his primary care physician Dr. Burkett, who will prescribe an appropriate Lovenox bridge leading up to his procedure.? Our office has ordered the appropriate preoperative work-up.? All questions were answered and the patient verbalized a good understanding.? Follow-up after surgery. Patient is provisionally scheduled for a RIGHT below the knee amputation performed by Dr. Dean at [facility] on 10/28/2022. (above as per Cherri Miller) The patient had a right BKA today and has been admitted for monitoring through the weekend. He is woozy from the surgery. He denies any pain. Medical Exam Vital signs and Labs for Last 24 Hours: Vital Signs Temp Pulse Pulse Pulse Resp BP BP 10/28/22 12:30 106 H 20 127/82 10/28/22 12:20 105 H 20 131/85 10/28/22 12:10 112 H 20 133/83 10/28/22 12:00 99.5 F 100 H 22 118/72 10/28/22 07:24 98.3 F 82 20 10/28/22 12:08 99.5 F 100 H 22 118/72 BP Pulse Ox 10/28/22 12:30 94 L 10/28/22 12:20 94 L 10/28/22 12:10 96 10/28/22 12:00 92 L 10/28/22 07:24 135/94 H 96 10/28/22 12:08 Intake and Output 10/28/22 10/28/22 10/28/22 03:59 11:59 19:59 Intake Total 1500 / 1500 Balance 1500 / 1500 Intake: Intake, Total IV Amount 1500 / 1500 Other: Weight 300 lb 292 lb 1 oz Patient Weight 10/29/22 11:59 Weight 292 lb 1 oz Laboratory Results - last 24 hr 10/28/22 07:15: SARS-CoV-2 (PCR) Not detected, Influenza A Untype (PCR) Not detected, Influenza Type B (PCR) Not detected I & O for Labs for Last 24 Hours: Intake & Output 10/26/22 10/27/22 10/28/22 10/29/22 11:59 11:59 11:59 11:59 Intake Total 1500 / 1500 Balance 1500 / 1500 Weight 300 lb 292 lb 1 oz Constitutional: Present no acute distress Respiratory: Present CTA bilaterally Cardiac: Present Reg Rate and Rhythm GI: Present soft; Absent distention or tenderness Comment:: Right BKA with dressing and drain in place, left LE normal Skin: Present warm Comment:: waking up from anesthesia Assessment and Plan *Assessment and plan (1) Status post below knee amputation of right lower extremity: Status: Acute Category: Surgical Code(s): Z89.511 - Acquired absence of right leg below knee (2) Acute osteomyelitis of right calcaneus: Status: Acute Category: Medical Code(s): M86.171 - Other acute osteomyelitis, right ankle and foot (3) MRSA infection: Status: Acute Category: Medical Code(s): A49.02 - Methi
--- NOTE | 2022-10-28 13:32 | EXP.OP.NOTE ---
Date of procedure: 10/28/22 Pre-op Diagnosis:: right calcaneal osteomyelitis Post-op Diagnosis:: same Procedure performed:: right below knee amputation Surgeon:: Sushil Dean JR, MD Customer Care Representative(s):: Cherri Bonner PA-C Anesthesia: GETA Estimated blood loss (mL): 100 Clinical Note:: 42-year-old male with chronic right calcaneal osteomyelitis with MRSA, superimposed Neelima albicans refractory to numerous debridements and months of IV antibiotics as well as hyperbaric oxygen therapy. At his last surgery, he had turbid fluid, soft bone consistent with worsening osteomyelitis. I had a discussion with he and his family regarding further management. After discussion of risk, benefits, alternatives, he wished to proceed with right below-knee potation. We discussed the risk and benefits of surgery. Risks included but were not limited to pain, bleeding, infection, damage to adjacent structures, need for further surgery, wound healing complications, loss of limb, . Patient expressed verbal consent and written consent was obtained for the above procedure. Operative findings:: Tension-free wound closure, remaining tissue appeared healthy with no overt sign of infection. Operative note:: Patient was identified in preoperative holding. Operative site was marked in indelible ink. History, physical, consent were reviewed and updated. Patient was surrendered to the anesthesia team, taken to the operative suite, placed supine on a well-padded operative table. Ipsilateral hip bump was placed as was a nonsterile thigh tourniquet. Anesthesia was induced. The operative extremity was prepped and draped in the usual sterile fashion. The operative team donned sterile gowns and gloves and a timeout was called. All in attendance agreed regarding the patient's identity, procedure, operative site. Weight-based dose of antibiotics was given prior to incision. A transverse incision made approximately 10 to 12 cm distal to the tibial tubercle.. A long posterior flap was created. It was taken to the subcutaneous tissues with electrocautery. Superficial peroneal nerve identified, injected bupivacaine, clamped, and cut. Anterior compartment was divided. The anterior neurovascular bundle identified, tied with free tie and stick tie, then transected. Tibial nerve identified, clamped, and cut. Tibial vessels identified, clamped, and cut. Periosteum of the tibia elevated proximally along with the fibula. The tibia was then cut with sagittal saw saw. It was beveled anteriorly and smoothed down . The fibula was cut about a cm and a half proximal to this using a sagittal saw. The remaining posterior compartment was divided. The peroneal bundle identified, clamped, and cut. The leg was then passed off of the field. Each vascular bundle was then doubly ligated with 0 silk stick tie and 0 silk free tie. The nerves were each pulled at length, injected with 0.25% Marcaine with epinephrine, cut, and later retracted proximally. The tourniquet was released. Good bleeding from the tissues and hemostasis obtained with electrocautery. Copious irrigation performed using antibiotic-impregnated solution. A Hemovac drain placed in the depth of wound. A gastroc soleus fascia brought up and attached to the tibia via bone tunnels. The posterior fascia was repaired to the anterior fascia and periosteum with #1 stratafix in a running fashion. I cut the remaining skin from the posterior flap in order to result in a tension-free closure subcutaneous tissues were then closed with 2-0 PDS suture. Skin was closed with skin ortiz. Xeroform gauze, 4 x 4, and a padded soft dressing applied. He was placed in a well-padded knee immobilizer with the knee in extension. He was then awakened, extubated, and taken to recovery in stable condition. There were no immediate operative complications, and he tolerated the procedure well. Condition: stable Disposition: PACU Specimens:: Amputated extremity sent for path
--- NOTE | 2022-10-28 13:57 | HMH.OTEV ---
OT Inpatient Evaluation Rehab OT IP Evaluation Start: 10/28/22 12:54 Freq: ONCE Status: Active Protocol: Document 10/28/22 13:51 [facility] (Rec: 10/28/22 13:56 [facility] [id number]) Rehab OT IP Assessment Subjective History Pt oriented x 4 on arrival. Pt agreeable to engage in therapy session. Pt was admitted on 10/28/22 following a right below knee amputation due to right calcaneal osteomyelitis. Prior to right foot problems, pt was independent with all ADLs and IADLs. 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 Subjective I feel okay right now. Objective Patient Orientation Person,Place,Birthday,Month Upper Extremity Gross ROM WFL Bed Mobility bed mobility-scooting,bed mobility - supine/sit,bed mobility - rolling Assist Level Contact Guard/Hand Hold Rehab OT IP prob,goals,plan Problems Date of Evaluation: 10/28/22 OT IP Problems Bed Mobility,Transfers,Balance ,Self care,Safety Rehab Potential Rehab Potential Good Equipment Needs Assistive Devices Rolling / Wheeled Walker, Wheelchair,Prosthesis Plan OT intervention Plan Bed Mobility,Transfers,Balance ,Self care,Safety,Therapeutic Exercise OT Plan Frequency BID Duration LOS Discharge Goals Bed Mobility Ability Standby Assistance Sit to Stand Chair Transfer Ability Contact Guard/Hand Hold Chair Transfer Ability Contact Guard/Hand Hold Chair Transfer Technique Stand Pivot Chair Transfer Assistive Devices Rolling Walker Feeding Ability Assist with Tray Set Up Lower Body Dressing Ability Assistance X1 Upper Body Dressing Ability Standby Assistance Bathing Ability Assistance x1 Performing Toilet Hygiene Ability Assistance X1 Overall Commode/Toilet Transfer Ability Assistance x1 Commode/Toilet Transfer Technique Sit to/from Ambulatory Discharge Plan OT Discharge Plan Pt will continue to be seen for OT service while at [facility]. pt would benefit from continued skilled therapy upon discharge either with
--- NOTE | 2022-10-28 14:02 | HMH.PTEV ---
Physical Therapy Evaluation Rehab PT IP Evaluation Start: 10/28/22 12:54 Freq: ONCE Status: Active Protocol: Document 10/28/22 13:56 [facility] (Rec: 10/28/22 14:02 [facility] [id number]) Subjective/History History History 42 yowm adm to [facility] for R BKA due to R ankle infection. He reports he lives with spouse, no step to enter the home and is generally independent with all mobility without AD. Subjective Subjective Currently he reports no pain in the R LE, but he did have nerve block during surgery. Rehab PT IP Eval Objective Appearance Patient Behavior Appropriate Patient Orientation Person,Place,Time Difficulty following instructions none Speech Pattern Clear Ambulation Patient Able to Ambulate No Balance Ability to Arise Able, w/o using arms Sitting Balance Steady, safe Dynamic Sitting Balance Ability Good Transfers Bed Transfer Ability Contact Guard/Hand Hold ROM All Extremities PT ROM Status WFL Abnormal ROM Comment except R knee NT MMT All Extremities PT MMT WFL Abnormal MMT Grade except R knee NT Rehab PT IP prob,goals,plan Problems Date of Evaluation: 10/28/22 PT IP Problems Bed Mobility,Transfers Rehab Potential Rehab Potential Good Equipment Needs Assistive Devices Wheelchair Plan PT Intervention Plan Bed Mobility,Transfers,Self care,Therapeutic Exercise PT Plan Frequency BID Duration LOS Discharge Goals Bed Transfer Ability Supervision/Stand by Sit to Stand Chair Transfer Ability Minimal x 1 (25% assist) Discharge Plan PT Discharge Plan Pt is appropriate to return home once medically stable for d/c, unless he prefers inpatient acute rehab. G -code Required No Eval Complexity Eval Charge Codes 44676 - Moderate Complexity PHYSICIAN CERTIFICATION: I certify the specified therapy services for Won Dennis are required, authorized, and reviewed every 30 days.
[2022-10-28 14:33] LABS: Chloride 105 mmol/L (98-107); Potassium 3.8 mmoL/L (3.5-5.1); Sodium 138 mmol/L (136-145)
[2022-10-28 14:36] LABS: Blood Urea Nitrogen 14 mg/dl (9-20); Creatinine Clearance Estimated 99 mL/min (50-200); Estimated Glomerular Filt Rate 82 ml/min (>60); GFR (African American) 99 ML/MIN (>60)
[2022-10-28 14:37] LABS: Anion Gap 15.8 mEq/L (5-15); Calcium 8.3 mg/dl (8.4-10.2); Carbon Dioxide 21 mmol/L (22.0-30.0); Glucose 162 mg/dl (74-100)
--- NOTE | 2022-10-28 14:49 | P.CONPHA_ITS ---
Pharmacy Consult Date: 10/28/22 Time: 14:49 Referring provider: DR. CARR Reason for Consult:: VANCOMYCIN DOSING Allergies Allergy/AdvReac Type Severity Reaction Status Date / Time Latex, Natural Rubber Allergy Mild cooper skin Verified 10/25/22 10:54 cephalexin [From Keflex] AdvReac Mild Vomiting Verified 10/25/22 10:54 Home Medications Medication Instructions Recorded Confirmed Type lactobacillus combination no.4 3 3,000 mmu cells PO DAILY Supplement 10/05/22 10/28/22 History billion cell capsule (Probiotic) rivaroxaban 20 mg tablet (Xarelto) 20 mg PO QPMWITHMEAL Blood 10/05/22 10/28/22 History thinner, pulmonary embolisms New Prescriptions to Start Prescriptions: Height: 1.8 m Weight: 132.4 kg Laboratory Results:: Laboratory Results - last 24 hr 10/28/22 07:15: SARS-CoV-2 (PCR) Not detected, Influenza A Untype (PCR) Not detected, Influenza Type B (PCR) Not detected 10/28/22 14:23: Sodium 138, Potassium 3.8, Chloride 105, Carbon Dioxide 21 L, Anion Gap 15.8 H, BUN 14, Creatinine 1.00, Estimated Creat Clear 99, Estimated GFR 82, Est GFR ( Amer) 99, Glucose 162 H, Calcium 8.3 L Medical History: Medical History (Updated 10/08/22 @ 00:00 by Background Daemon) Acquired hammertoes of both feet Anemia Exposure to 2019 novel coronavirus GERD (gastroesophageal reflux disease) GI bleed Adiel's deformity of right heel Heel spur Laceration of right index finger Migraine Psoriasis Right Achilles bursitis Right Achilles tendinitis 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 Drug selected: Vancomycin Loading dose (mg): Vd (liters): 99.3 (factor used: 0.75 L/kg) Samuel (hr-1): 0.084 Half life (hrs): 8.25 CLvanco=?? 8.341 L/hr Recommended dose: 2250 mg Interval: 12 hrs Infusion time (hrs): 2.0 Predicted peak (mcg/mL): 32.8 Predicted trough (mcg/mL): 14.16 The IBW (Miranda body weight) was ADJUSTED to reflect the AMPUTATION Total body weight is being used for vancomycin dosing. Recommendations: Give Vancomycin 2250 mg q 12 hrs with an expected Cpeak of 32.8 mcg/ml and an expected Ctrough of 14.16 mcg/ml AUC 0-24 /ALIZA Data: ALIZA 0.5 mcg/mL:?? AUC/ALIZA:? 1079.0 ALIZA 1.0 mcg/mL:?? AUC/ALIZA:? 539.5 --------- ALIZA 1.5 mcg/mL:?? AUC/ALIZA:? 359.7 ALIZA 2.0 mcg/mL:?? AUC/ALIZA:? 269.8 Thank you for the consult, will continue to follow. -SOURAV OLIVA, LUCIAD
--- NOTE | 2022-10-28 15:29 | EXP.ANES.II ---
[facility] Anesthesia Record Part II Anesthesia Record Part II Discharge Time: 12:30 Destination: Medical Surgical Department PACU nurse assessment reviewed?: Yes Patient Condition:: Good Anesthesia Complications:: None Swallowing reflex intact?: Yes Cyanosis?: No Blood Pressure: 127/82 Pulse Rate: 106 Temperature: 99.5 F Mental Status: Alert & Oriented Pain level:: 0 Nausea and/or vomitting:: None Intake, IV Amount: 0
--- NOTE | 2022-10-28 16:25 | EXP.HP ---
History of Present Illness *Admission Date: 10/28/22 *Reason for visit:: post op for right bka *History of present illness: Patient is a 42-year-old male with right calcaneal osteomyelitis, MRSA, superimposed Neelima albicans infection.? He is approximately 6 days out from his most recent irrigation, debridement, and application of wound VAC at [facility] on 10/19/[address] Dean.? Intraoperative findings at that time were notable for turbid appearing fluid and soft bone with persistently positive intraoperative cultures.? After discussion with Dr. Dean as well as Dr. Torres, recommendation has been made for right below the knee amputation.? The patient is agreeable and wishes to proceed.? The proposed procedure, risk/benefits, alternatives, and expected perioperative course were discussed in detail.? Risks include but not are not limited to pain, bleeding, infection, damage to adjacent structures, need for further surgery, wound healing complications, loss of limb, DVT/PE, stroke, heart attack, and even .? The patient seems to understand and accept these risk and wishes to proceed with the proposed procedure.? In the meantime he will continue his oral linezolid and fluconazole at the recommendation of Dr. Torres.? I reapplied his wound VAC today in office and adequate seal was noted.? The patient self discontinued his Xarelto approximately 5 days ago; I have discussed the patient's plan of care with his primary care physician Dr. Burkett, who will prescribe an appropriate Lovenox bridge leading up to his procedure.? Our office has ordered the appropriate preoperative work-up.? All questions were answered and the patient verbalized a good understanding.? Follow-up after surgery. Patient is provisionally scheduled for a RIGHT below the knee amputation performed by Dr. Dean at [facility] on 10/28/2022. (above as per Cherri Miller) The patient had a right BKA today and has been admitted for monitoring through the weekend.? He is woozy from the surgery.? He denies any pain. [facility] Disclaimer: The information contained in this section may have been updated after the patient was seen, as this information can be updated by other users. 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 Surgical History History of foot surgery History of incision and drainage Multiple procedures on right calcaneous Hx of surgical amputation of finger 7 surgeries to finger/partial amputation Previous back surgery Status post tendon repair left ankle Family History Hypertension Social History Smoking Status: Never smoker alcohol intake: current substance use type: denies use current occupational status: employed Travel in the last 8 weeks: None household members: spouse and children housing: house lives independently: No education level: high school caffeine: Yes special davin needs: No agree to transfusion: No do you feel safe at home: Yes victim of physical abuse: No victim of emotional abuse: No victim of sexual abuse: No would you like helpful sources: No Review of Systems Constitutional Constitutional: Reports fatigue, Denies fever(s), Denies headache(s) and Reports weakness Eyes Eyes: Denies blurry vision and Denies diplopia ENT Ears, Nose, Mouth, and Throat: Denies headache(s), Denies nasal congestion, Denies sore throat and Denies vertigo *Cardiovascular
[2022-10-29] VITALS: BP 127/74; PULSE 103; RESP 18; TEMP 36.8; O2SAT 92
[2022-10-29 04:00] VITALS: BP 117/66; PULSE 92; RESP 18; TEMP 36.7; BMI 41.4
--- NOTE | 2022-10-29 04:41 | PC.NURSE ---
gave two tablets of 5mg oxycodone as prescribed for pain rated 8/10, pt states he has been on these for months at home.
--- NOTE | 2022-10-29 05:47 | PC.NURSE ---
Rounded on pt at this time. Pt voices no complaints or needs at this time. Visitor sleeping in chair at bedside. He states pain is not to bad when asked how is pain is.
--- NOTE | 2022-10-29 06:21 | PC.NURSE ---
pt with frequent pain and medicated several times through the night for c/o pain 02/16, vss, dressing to rle cdi, j/p to bulb suction with bloody drainage noted, vss, no acute distress
[2022-10-29 06:59] LABS: Basophils % 0.1 % (0.1-2.0); Eosinophils # 0.1 K/mm3 (0.0-0.4); Eosinophils % 0.4 % (0.1-12.0); Hematocrit 37.2 % (42.0-52.0); Hemoglobin 12.1 g/dL (14.1-18.0); Lymphocytes # 1.3 K/mm3 (0.7-4.5); Lymphocytes % 7.7 % (10-50); Mean Corpuscular HGB Conc 32.6 g/dL (31.8-35.4); Mean Corpuscular Hemoglobin 25.4 pg (27.0-31.2); Mean Corpuscular Volume 77.9 fl (80-94); Mean Platelet Volume 7.5 fl (7.4-10.4); Monocytes # 0.9 K/mm3 (0.1-1.0); Monocytes % 5.3 % (1.7-9.3); Neutrophils # 15.1 K/mm3 (1.8-7.8); Neutrophils % 86.5 % (37.0-80.0); Platelet Count 281 K/mm3 (142-424); Red Blood Count 4.77 M/mm3 (4.60-6.20); White Blood Count 17.5 K/mm3 (4.8-10.8)
[2022-10-29 07:01] LABS: Chloride 106 mmol/L (98-107)
[2022-10-29 07:03] LABS: MANUAL DIFFERENTIAL MANUAL DIFFERENTIAL (MANUAL DIFF)
[2022-10-29 07:04] LABS: Blood Urea Nitrogen 14 mg/dl (9-20); Carbon Dioxide 25 mmol/L (22.0-30.0); Creatinine Clearance Estimated 124 mL/min (50-200); Estimated Glomerular Filt Rate 106 ml/min (>60); GFR (African American) 128 ML/MIN (>60)
[2022-10-29 07:05] LABS: Calcium 7.7 mg/dl (8.4-10.2); Glucose 134 mg/dl (74-100)
[2022-10-29 07:26] LABS: Lymphocytes % 6 % (10-50); Monocytes % 3 % (2-9); Neutrophils % 91 % (42-76); Platelet Estimate Normal; RBC Morphology Normal; Total Cells Counted 100
[2022-10-29 07:38] VITALS: BP 114/63; PULSE 89; RESP 18; TEMP 36.6; O2SAT 95
[2022-10-29 07:39] LABS: Sodium 136 mmol/L (136-145)
--- NOTE | 2022-10-29 13:12 | P.PN_ITS ---
Subjective *Date: 10/29/22 *Time: 13:12 Interval history: Pain has been tolerable. He's been mobilizing well. Ortho Exam (Inpt) Vital signs and Labs for Last 24 Hours: Temp Pulse Resp BP Pulse Ox 97.9 F 89 18 114/63 95 10/29/22 07:38 10/29/22 07:38 10/29/22 07:38 10/29/22 07:38 10/29/22 07:38 Laboratory Results - last 24 hr 10/28/22 14:23: Sodium 138, Potassium 3.8, Chloride 105, Carbon Dioxide 21 L, Anion Gap 15.8 H, BUN 14, Creatinine 1.00, Estimated Creat Clear 99, Estimated GFR 82, Est GFR ( Amer) 99, Glucose 162 H, Calcium 8.3 L 10/29/22 06:38: WBC 17.5 H, RBC 4.77, Hgb 12.1 L, Hct 37.2 L, MCV 77.9 L, MCH 25.4 L, MCHC 32.6, RDW 14.0, Plt Count 281, MPV 7.5, Neut % (Auto) 86.5 H, Lymph % (Auto) 7.7 L, [place] % (Auto) 5.3, Eos % (Auto) 0.4, Baso % (Auto) 0.1, Neut # (Auto) 15.1 H, Lymph # (Auto) 1.3, [place] # (Auto) 0.9, Eos # (Auto) 0.1, Baso # (Auto) 0.0, Total Counted 100, Neutrophils % (Manual) 91 H, Lymphocytes % (Manual) 6 L, Monocytes % (Manual) 3, Platelet Estimate Normal, RBC Morphology Normal 10/29/22 06:38: Sodium 136, Potassium 4.0, Chloride 106, Carbon Dioxide 25, Anion Gap 9.0, BUN 14, Creatinine 0.80, Estimated Creat Clear 124, Estimated GFR 106, Est GFR ( Amer) 128 D, Glucose 134 H, Calcium 7.7 L I & O for Labs for Last 24 Hours: Intake & Output 10/26/22 10/27/22 10/28/22 10/29/22 23:59 23:59 23:59 23:59 Intake Total 1740 / 1740 610 / 610 Output Total 1225 / 1625 1120 / 1120 Balance 515 / 115 -510 / -510 Weight 291 lb 14.272 oz 296 lb 4.82 oz Additional Findings:: Right lower extremity: Dressing c/d/i, drain with serosanguinous output Assessment and Plan *Assessment and plan (1) Status post below knee amputation of right lower extremity: Status: Acute Category: Surgical Code(s): Z89.511 - Acquired absence of right leg below knee Plan 42 year old male s/p right below knee amputation. Plan to leave drain today. Resume xarelto this evening. Continue oxycodone. Add gabapentin / robaxin. PT/OT. Empirin vancomycin / diflucan. Possible drain removal tomorrow.
--- NOTE | 2022-10-29 13:46 | EXP.ACUTE.PN ---
Subjective *Date: 10/29/22 *Time: 13:46 Interval history: He is doing well. He is having some pain. He thinks it may be muscle spasm. Dr. Dean ordered a muscle relaxant. His white count is slightly elevated this morning. He is breathing fine. I emphasized the use of incentive spirometry. Medical Exam Vital signs and Labs for Last 24 Hours: Vital Signs Temp Pulse Pulse Resp BP BP Pulse Ox 10/29/22 07:38 97.9 F 89 18 114/63 95 10/29/22 04:00 98.1 F 92 H 18 117/66 10/29/22 00:00 98.2 F 103 H 18 127/74 92 L 10/28/22 20:00 98 10/28/22 19:56 98.5 F 80 18 139/86 10/28/22 17:35 98.9 F 104 H 18 129/78 98 10/28/22 16:35 98.7 F 102 H 18 134/79 96 10/28/22 15:35 98.9 F 93 H 18 124/78 96 10/28/22 15:05 98.3 F 97 H 18 120/82 95 10/28/22 14:35 98.3 F 97 H 18 124/86 94 L 10/28/22 14:05 98.6 F 95 H 17 129/93 H 95 10/28/22 15:30 99.5 F 106 H 127/82 Intake and Output 10/29/22 10/29/22 10/29/22 03:59 11:59 19:59 Intake Total 610 / 2350 Output Total 645 / 2345 675 / 2345 0 / 0 Balance -645 / 5 -65 / 5 0 / 0 Intake: Intake, Oral Amount 360 / 600 Intake, Total IV Amount 250 / 250 Vancomycin HCl 2,250 mg In 0.9 250 / 250 % Sodium Chloride 250 ml @ 125 mls/hr IV Q12H ON LICENSE OF [facility] Rx#:[id number] Output: Output, Urine Amount 600 / 2300 675 / 2300 0 / 0 Output, Drainage Amount 45 / 45 Right Lower Leg 45 / 45 Other: Number of Unmeasured Voids 0 1 1 Weight 296 lb 4.82 oz Laboratory Results - last 24 hr 10/28/22 14:23: Sodium 138, Potassium 3.8, Chloride 105, Carbon Dioxide 21 L, Anion Gap 15.8 H, BUN 14, Creatinine 1.00, Estimated Creat Clear 99, Estimated GFR 82, Est GFR ( Amer) 99, Glucose 162 H, Calcium 8.3 L 10/29/22 06:38: WBC 17.5 H, RBC 4.77, Hgb 12.1 L, Hct 37.2 L, MCV 77.9 L, MCH 25.4 L, MCHC 32.6, RDW 14.0, Plt Count 281, MPV 7.5, Neut % (Auto) 86.5 H, Lymph % (Auto) 7.7 L, [place] % (Auto) 5.3, Eos % (Auto) 0.4, Baso % (Auto) 0.1, Neut # (Auto) 15.1 H, Lymph # (Auto) 1.3, [place] # (Auto) 0.9, Eos # (Auto) 0.1, Baso # (Auto) 0.0, Total Counted 100, Neutrophils % (Manual) 91 H, Lymphocytes % (Manual) 6 L, Monocytes % (Manual) 3, Platelet Estimate Normal, RBC Morphology Normal 10/29/22 06:38: Sodium 136, Potassium 4.0, Chloride 106, Carbon Dioxide 25, Anion Gap 9.0, BUN 14, Creatinine 0.80, Estimated Creat Clear 124, Estimated GFR 106, Est GFR ( Amer) 128 D, Glucose 134 H, Calcium 7.7 L I & O for Labs for Last 24 Hours: Intake & Output 10/27/22 10/28/22 10/29/22 10/30/22 11:59 11:59 11:59 11:59 Intake Total 2350 / 2350 Output Total 2345 / 2345 0 / 0 Balance 5 / 5 0 / 0 Weight 300 lb 296 lb 4.82 oz Head: Present normocephalic Neck: Present normal inspection Respiratory: Present CTA bilaterally and normal respiratory effort Cardiac: Present Reg Rate and Rhythm GI: Present soft; Absent tenderness Rectal (male): Present deferred (male): Present deferred Extremities: Present edema (None of the left leg) Comment:: Right dressing is in place and drain is in place. See orthopedic note. Skin: Present intact Neuro: Present alert, awake and oriented x 3 Assessment and Plan *Assessment and plan (1) Status post below knee amputation of right lower extremity: Status: Acute Category: Surgical Code(s): Z89.511 - Acquired absence of right leg below knee (2) MRSA infection: Status: Acute Category: Medical Code(s): A49.02 - Methicillin resistant Staphylococcus aureus infection, unspecified site (3) History of COVID-19: Status: Acute Category: Medical Code(s): Z86.16 - Personal history of COVID-19 (4) History of pulmonary embolism: Status: Acute Category: Medical Code(s): Z86.711 - Personal history of pulmonary embolism Plan Per orthopedics. Boy will be restarted tonight. He has been receiv
[2022-10-29 15:07] VITALS: BP 112/65; PULSE 93; RESP 18; TEMP 36.6; O2SAT 95
--- NOTE | 2022-10-29 17:40 | PC.NURSE ---
Late entry: Rounded on patient. He reports having pain but states it is being treated around the clock. He denies any complaints, questions or concerns at this time.
--- NOTE | 2022-10-29 18:16 | PC.NURSE ---
Pain medications given every 2 and 4 hours for pain ratings of 8 each time pain assessed. Patient on room air and VS stable. SANDY drain in place. Bandage clean dry and intact. No other changes noted.
[2022-10-29 20:00] VITALS: BP 133/77; PULSE 96; RESP 18; TEMP 36.5; O2SAT 98
[2022-10-30 04:00] VITALS: BP 132/69; PULSE 82; RESP 18; TEMP 36.8; BMI 41.1
--- NOTE | 2022-10-30 04:21 | PC.NURSE ---
no changes from previous assessment, pt pain more controlled with new po meds, pt is alert and oriented x4, no acute distress, dressing cdi to rle, drainage in j/p drain minimal and not enough to empty, pt given stool softener as prescribed for complaints of constipation, pt without bm at this time, no other issues, no acute distress
[2022-10-30 07:45] VITALS: BP 131/73; PULSE 94; RESP 18; TEMP 36.9; O2SAT 95
--- NOTE | 2022-10-30 13:18 | PC.NURSE ---
pt continues to voice pain in rle as an 8/10 despite multiple doses of pain medication given, as well as gabapentin and muscle relaxer. he reports it as a burning sensation in the extremity with unrelieved throbbing. Dr Salazar is currently @ bedside. ext is warm. SANDY to bulb suction is patent and intact.
--- NOTE | 2022-10-30 13:22 | EXP.ACUTE.PN ---
Subjective *Date: 10/30/22 *Time: 13:22 Interval history: He is doing well. He was able to sleep last night. His main complaint is pain at the amputation site. Apparently Dr. Dean will see him later on today. Discharge is planned for in the morning. Medical Exam Vital signs and Labs for Last 24 Hours: Vital Signs Temp Pulse Resp BP Pulse Ox 10/30/22 07:45 98.5 F 94 H 18 131/73 95 10/30/22 04:00 98.2 F 82 18 132/69 10/29/22 20:00 98 10/29/22 20:00 97.7 F 96 H 18 133/77 98 10/29/22 15:07 97.8 F 93 H 18 112/65 95 Intake and Output 10/30/22 10/30/22 10/30/22 03:59 11:59 19:59 Intake Total 420 / 1140 360 / 360 Output Total 0 / 1390 1000 / 1390 Balance 0 / -250 -580 / -250 360 / 360 Intake: Intake, Oral Amount 420 / 1140 360 / 360 Output: Output, Urine Amount 1000 / 1350 Output, Drainage Amount 0 / 40 Right Lower Leg 0 / 40 Other: Number of Unmeasured Voids 1 Weight 293 lb 10.491 oz I & O for Labs for Last 24 Hours: Intake & Output 10/28/22 10/29/22 10/30/22 10/31/22 11:59 11:59 11:59 11:59 Intake Total 2350 / 2350 1140 / 1140 360 / 360 Output Total 2345 / 2345 1390 / 1390 Balance 5 / 5 -250 / -250 360 / 360 Weight 300 lb 296 lb 4.82 oz 293 lb 10.491 oz Head: Present normocephalic Neck: Present normal inspection Respiratory: Present CTA bilaterally; Absent respiratory distress Cardiac: Present Reg Rate and Rhythm GI: Present soft; Absent tenderness Rectal (male): Present deferred (male): Present deferred Extremities: Present normal inspection (Amputation site is dressed on the right. Drain is in place.) and edema (No edema of the left leg); Absent tenderness (No tenderness of the left leg) Skin: Present intact Neuro: Present alert and oriented x 3 Additional Findings:: White blood cell count was elevated yesterday. We will repeat CBC today. Assessment and Plan *Assessment and plan (1) Status post below knee amputation of right lower extremity: Status: Acute Category: Surgical Code(s): Z89.511 - Acquired absence of right leg below knee (2) History of COVID-19: Status: Acute Category: Medical Code(s): Z86.16 - Personal history of COVID-19 (3) History of pulmonary embolism: Status: Acute Category: Medical Code(s): Z86.711 - Personal history of pulmonary embolism (4) Acute osteomyelitis of right calcaneus: Status: Acute Category: Medical Code(s): M86.171 - Other acute osteomyelitis, right ankle and foot (5) MRSA infection: Status: Acute Category: Medical Code(s): A49.02 - Methicillin resistant Staphylococcus aureus infection, unspecified site (6) Surgical site infection: Status: Acute Category: Medical Code(s): T81.49XA - Infection following a procedure, other surgical site, initial encounter Plan Continue present care. Likely discharge in the morning.
[2022-10-30 14:08] LABS: Basophils % 0.3 % (0.1-2.0); Eosinophils # 0.5 K/mm3 (0.0-0.4); Eosinophils % 3.9 % (0.1-12.0); Hemoglobin 11.2 g/dL (14.1-18.0); Lymphocytes # 2.5 K/mm3 (0.7-4.5); Mean Corpuscular HGB Conc 32.1 g/dL (31.8-35.4); Mean Corpuscular Hemoglobin 25.6 pg (27.0-31.2); Mean Corpuscular Volume 79.6 fl (80-94); Mean Platelet Volume 7.7 fl (7.4-10.4); Monocytes # 0.8 K/mm3 (0.1-1.0); Monocytes % 6.5 % (1.7-9.3); Neutrophils # 8.2 K/mm3 (1.8-7.8); Neutrophils % 68.3 % (37.0-80.0); Platelet Count 248 K/mm3 (142-424); Red Blood Count 4.39 M/mm3 (4.60-6.20); Red Cell Distribution Width 14.5 % (11.5-17.5)
--- NOTE | 2022-10-30 14:31 | P.PN_ITS ---
Subjective *Date: 10/30/22 *Time: 14:32 Ortho Exam (Inpt) Vital signs and Labs for Last 24 Hours: Temp Pulse Resp BP Pulse Ox 98.5 F 94 H 18 131/73 95 10/30/22 07:45 10/30/22 07:45 10/30/22 07:45 10/30/22 07:45 10/30/22 07:45 Laboratory Results - last 24 hr 10/30/22 13:38: WBC 12.0 H D, RBC 4.39 L, Hgb 11.2 L, Hct 35.0 L, MCV 79.6 L, MCH 25.6 L, MCHC 32.1, RDW 14.5, Plt Count 248, MPV 7.7, Neut % (Auto) 68.3, Lymph % (Auto) 21.0, [place] % (Auto) 6.5, Eos % (Auto) 3.9, Baso % (Auto) 0.3, Neut # (Auto) 8.2 H, Lymph # (Auto) 2.5, [place] # (Auto) 0.8, Eos # (Auto) 0.5 H, Baso # (Auto) 0.0 I & O for Labs for Last 24 Hours: Intake & Output 10/27/22 10/28/22 10/29/22 10/30/22 23:59 23:59 23:59 23:59 Intake Total 1740 / 1740 1330 / 1330 780 / 780 Output Total 1225 / 1625 1510 / 1510 1000 / 1000 Balance 515 / 115 -180 / -180 -220 / -220 Weight 291 lb 14.272 oz 296 lb 4.82 oz 293 lb 10.491 oz Assessment and Plan *Assessment and plan (1) Status post below knee amputation of right lower extremity: Status: Acute Category: Surgical Code(s): Z89.511 - Acquired absence of right leg below knee (2) History of COVID-19: Status: Acute Category: Medical Code(s): Z86.16 - Personal history of COVID-19 (3) History of pulmonary embolism: Status: Acute Category: Medical Code(s): Z86.711 - Personal history of pulmonary embolism (4) Acute osteomyelitis of right calcaneus: Status: Acute Category: Medical Code(s): M86.171 - Other acute osteomyelitis, right ankle and foot (5) MRSA infection: Status: Acute Category: Medical Code(s): A49.02 - Methicillin resistant Staphylococcus aureus infection, unspecified site (6) Surgical site infection: Status: Acute Category: Medical Code(s): T81.49XA - Infection following a procedure, other surgical site, initial encounter Plan 42 year old male s/p right below knee amputation. Plan to leave drain today. Continue xarelto. Continue oxycodone. Continue gabapentin / robaxin. Add MS contin in hopes of weaning off IV morphine. PT/OT. Empirin vancomycin / diflucan, linezolid / diflucan PO on discharge. Possible drain removal tomorrow.
[2022-10-30 14:56] VITALS: BP 133/66; PULSE 97; RESP 18; TEMP 37.2; O2SAT 95
--- NOTE | 2022-10-30 15:50 | PC.NURSE ---
pt refused SCDs
--- NOTE | 2022-10-30 17:35 | PC.NURSE ---
Pt is resting in bed at this time, friends at bedside. He reports just receiving prn pain meds. He denies any questions or concerns at this time.
--- NOTE | 2022-10-30 19:27 | PC.NURSE ---
40ml emptied from SANDY drain
[2022-10-30 20:00] VITALS: BP 146/82; PULSE 100; RESP 18; TEMP 37.1; O2SAT 96
--- NOTE | 2022-10-31 02:41 | PC.NURSE ---
Rounded on pt at this time. Asked pt how is pain control was and he rated it 5 out of 10 and describes it as a burning sensation. Pt has no other complaints. Pt's water pitched refilled per his request.
[2022-10-31 04:00] VITALS: BP 142/85; PULSE 104; RESP 18; TEMP 36.8; O2SAT 92; BMI 42.1
--- NOTE | 2022-10-31 06:45 | EXP.ORTH.PN ---
Subjective *Date: 10/31/22 *Time: 06:45 Interval history: Pain is improving. He mainly complains of burning type pain with dependent positioning of RLE when standing. Ortho Exam (Inpt) Vital signs and Labs for Last 24 Hours: Temp Pulse Resp BP Pulse Ox 98.3 F 104 H 18 142/85 H 92 L 10/31/22 04:00 10/31/22 04:00 10/31/22 04:00 10/31/22 04:00 10/31/22 04:00 Laboratory Results - last 24 hr 10/30/22 13:38: WBC 12.0 H D, RBC 4.39 L, Hgb 11.2 L, Hct 35.0 L, MCV 79.6 L, MCH 25.6 L, MCHC 32.1, RDW 14.5, Plt Count 248, MPV 7.7, Neut % (Auto) 68.3, Lymph % (Auto) 21.0, [place] % (Auto) 6.5, Eos % (Auto) 3.9, Baso % (Auto) 0.3, Neut # (Auto) 8.2 H, Lymph # (Auto) 2.5, [place] # (Auto) 0.8, Eos # (Auto) 0.5 H, Baso # (Auto) 0.0 I & O for Labs for Last 24 Hours: Intake & Output 10/28/22 10/29/22 10/30/22 10/31/22 23:59 23:59 23:59 23:59 Intake Total 1740 / 1740 1330 / 1330 1140 / 1140 Output Total 1225 / 1625 1510 / 1510 1840 / 2140 1200 / 1200 Balance 515 / 115 -180 / -180 -700 / -1000 -1200 / -1200 Weight 291 lb 14.272 oz 296 lb 4.82 oz 293 lb 10.491 oz 301 lb 2 oz Additional Findings:: Drain with minimal serosanguinous output. Dressing c/d/i. Assessment and Plan *Assessment and plan (1) Status post below knee amputation of right lower extremity: Status: Acute Category: Surgical Code(s): Z89.511 - Acquired absence of right leg below knee (2) History of COVID-19: Status: Acute Category: Medical Code(s): Z86.16 - Personal history of COVID-19 (3) History of pulmonary embolism: Status: Acute Category: Medical Code(s): Z86.711 - Personal history of pulmonary embolism (4) Acute osteomyelitis of right calcaneus: Status: Acute Category: Medical Code(s): M86.171 - Other acute osteomyelitis, right ankle and foot (5) MRSA infection: Status: Acute Category: Medical Code(s): A49.02 - Methicillin resistant Staphylococcus aureus infection, unspecified site (6) Surgical site infection: Status: Acute Category: Medical Code(s): T81.49XA - Infection following a procedure, other surgical site, initial encounter Plan 42 year old male s/p right below knee amputation. Drain removed today. Continue xarelto. Continue oxycodone. Continue gabapentin (increased to 300 BID) / robaxin. Continue MS Contin. PT/OT. Empiric vancomycin / diflucan, linezolid / diflucan PO on discharge. Scripts sent for oxycodone, gabapentin, robaxin, MS contin, linezolid. He has a refill left on his diflucan. Continue therapeutic xarelto as per primary. If pain under control without IV pain meds, would anticipate discharge this afternoon or evening after he works some more with PT.
--- NOTE | 2022-10-31 07:49 | EXP.ACUTE.PN ---
Subjective *Date: 10/31/22 *Time: 08:48 Interval history: Patient states he is better today. Pain has not lessened. He was up in a chair yesterday. He is eating quite well with a good fluid intake. Bowels have not moved in about 3 to 4 days and he is requesting meds. He is passing flatus. He denies any nausea. He is voiding QS he did sleep well. He has begun to itch actually all over his body. Medical Exam Vital signs and Labs for Last 24 Hours: Vital Signs Temp Pulse Resp BP Pulse Ox 10/31/22 04:00 98.3 F 104 H 18 142/85 H 92 L 10/30/22 20:00 98.7 F 100 H 18 146/82 H 96 10/30/22 14:56 99.0 F 97 H 18 133/66 95 Intake and Output 10/30/22 10/31/22 10/31/22 19:59 03:59 11:59 Intake Total 720 / 720 Output Total 540 / 540 900 / 1440 600 / 2040 Balance 180 / 180 -900 / -720 -600 / -1320 Intake: Intake, Oral Amount 720 / 720 Output: Output, Urine Amount 500 / 500 900 / 1400 600 / 2000 Output, Drainage Amount 40 / 40 Right Lower Leg 40 / 40 Other: Number of Unmeasured Voids 1 Weight 301 lb 2 oz Patient Weight 10/31/22 11:59 Weight 301 lb 2 oz Laboratory Results - last 24 hr 10/30/22 13:38: WBC 12.0 H D, RBC 4.39 L, Hgb 11.2 L, Hct 35.0 L, MCV 79.6 L, MCH 25.6 L, MCHC 32.1, RDW 14.5, Plt Count 248, MPV 7.7, Neut % (Auto) 68.3, Lymph % (Auto) 21.0, [place] % (Auto) 6.5, Eos % (Auto) 3.9, Baso % (Auto) 0.3, Neut # (Auto) 8.2 H, Lymph # (Auto) 2.5, [place] # (Auto) 0.8, Eos # (Auto) 0.5 H, Baso # (Auto) 0.0 I & O for Labs for Last 24 Hours: Intake & Output 10/28/22 10/29/22 10/30/22 10/31/22 11:59 11:59 11:59 11:59 Intake Total 2350 / 2350 1140 / 1140 720 / 720 Output Total 2345 / 2345 1390 / 1390 2039 / 2039 Balance -250 / -250 -1320 / -1320 Weight 300 lb 296 lb 4.82 oz 293 lb 10.491 oz 301 lb 2 oz Constitutional: Present no acute distress Comment:: Conversant and appears comfortable Respiratory: Present CTA bilaterally (Anteriorly and posteriorly) Cardiac: Present Regular Rhythm GI: Present soft and normal bowel sounds; Absent tenderness or guarding Comment:: Right stump with [place] bandage clean and dry. Left leg without edema. Skin: Absent rash Neuro: Present alert and oriented x 3 Assessment and Plan *Assessment and plan (1) Status post below knee amputation of right lower extremity: Status: Acute Category: Surgical Code(s): Z89.511 - Acquired absence of right leg below knee (2) History of COVID-19: Status: Acute Category: Medical Code(s): Z86.16 - Personal history of COVID-19 (3) History of pulmonary embolism: Status: Acute Category: Medical Code(s): Z86.711 - Personal history of pulmonary embolism (4) Acute osteomyelitis of right calcaneus: Status: Acute Category: Medical Code(s): M86.171 - Other acute osteomyelitis, right ankle and foot (5) MRSA infection: Status: Acute Category: Medical Code(s): A49.02 - Methicillin resistant Staphylococcus aureus infection, unspecified site (6) Surgical site infection: Status: Acute Category: Medical Code(s): T81.49XA - Infection following a procedure, other surgical site, initial encounter (7) Constipation: Status: Acute Category: Medical Code(s): K59.00 - Constipation, unspecified (8) Itching due to drug: Status: Acute Category: Medical Code(s): L29.8 - Other pruritus; T50.905A - Adverse effect of unspecified drugs, medicaments and biological substances, initial encounter Plan Patient possibly will go home today. We will give MiraLAX and have bedside commode placed. We will add Benadryl for the itching. Dr. Madelaine edwards, saw patient, agree with above note. OK for discharge home today. F/U with ortho in 4 days.
[2022-10-31 07:51] VITALS: BP 118/78; PULSE 86; RESP 18; TEMP 36.6; O2SAT 94
--- NOTE | 2022-10-31 08:00 | XR_ITS ---
FINAL REPORT CLINICAL HISTORY: s/p right BKA FINDINGS: 2 views of the right knee were obtained. Postoperative changes are seen from below the knee amputation. There are mild degenerative changes at the knee. IMPRESSION: Postoperative change from below the knee amputation. Reviewed, Interpreted and Dictated by Won Carey III, MD Transcribed by Vincent Alfred Authenticated and [facility]
--- NOTE | 2022-10-31 09:11 | HMH.PHAINT1 ---
Pharmacy Intervention Comments: Counseled patient on 5 new prescriptions to START on discharge (linezolid, morphine, oxycodone, methocarbamol, gabapentin). Patient expressed understanding of medications' indication, dose, route, frequency, and potential side effects.
--- NOTE | 2022-11-01 13:54 | CARE MANAGER ---
Spoke with patient regarding recent discharge. Patient stated that he is doing well, has started new medications prescribed at discharge, and is aware up f/u appts.
--- NOTE | 2022-11-01 15:04 | EXP.DC.SUM ---
General Admission date:: 10/28/22 Discharge date: 10/31/22 HPI HPI HPI: Patient is a 42-year-old male with right calcaneal osteomyelitis, MRSA, superimposed Neelima albicans infection.? He is approximately 6 days out from his most recent irrigation, debridement, and application of wound VAC at [facility] on 10/19/[address] Dean.? Intraoperative findings at that time were notable for turbid appearing fluid and soft bone with persistently positive intraoperative cultures.? After discussion with Dr. Dean as well as Dr. Torres, recommendation has been made for right below the knee amputation.? The patient is agreeable and wishes to proceed.? The proposed procedure, risk/benefits, alternatives, and expected perioperative course were discussed in detail.? Risks include but not are not limited to pain, bleeding, infection, damage to adjacent structures, need for further surgery, wound healing complications, loss of limb, DVT/PE, stroke, heart attack, and even .? The patient seems to understand and accept these risk and wishes to proceed with the proposed procedure.? In the meantime he will continue his oral linezolid and fluconazole at the recommendation of Dr. Torres.? I reapplied his wound VAC today in office and adequate seal was noted.? The patient self discontinued his Xarelto approximately 5 days ago; I have discussed the patient's plan of care with his primary care physician Dr. Burkett, who will prescribe an appropriate Lovenox bridge leading up to his procedure.? Our office has ordered the appropriate preoperative work-up.? All questions were answered and the patient verbalized a good understanding.? Follow-up after surgery. Patient is provisionally scheduled for a RIGHT below the knee amputation performed by Dr. Dean at [facility] on 10/28/2022. (above as per Cherri Miller) The patient had a right BKA today and has been admitted for monitoring through the weekend.? He is woozy from the surgery.? He denies any pain. Hospital Course Hospital Course Hospital Course: The patient did well after surgery. Dr. Salazar was concerned as he had had 3 episodes of COVID-19, which he felt affected healing and circulation. The patient had experienced pulmonary emboli in the past and has been on Xarelto. He was receiving Lovenox and Dr. Salazar wanted him discharged home on Xarelto. Dr. Dean started him back on his Xarelto and continued him on pain medications. He also added gabapentin and Robaxin and consulted PT and OT. He was also empirically given vancomycin and Diflucan. He did have quite a bit of pain at the amputation site. Dr. Dean added MS Contin in hopes of weaning him off of IV morphine. By 10/31/2022 his pain had still not lessened. He was able to get up in a chair and was eating well. His bowels have not moved in 3 to 4 days, but he was passing flatus. He was voiding well. He had began to itch all over his body. He was given MiraLAX for his bowels and Benadryl was added for the itching. Dr. Dean removed his drain and wanted him discharged home on oxycodone, gabapentin, Robaxin, and MS Contin. He wanted him to have PT and OT as well as linezolid and Diflucan p.o. upon discharge. He was also to continue his Xarelto. He was stable to be discharged home. Exam Data for Last 24 hours Vital signs and Labs for Last 24 Hours: Temp Pulse Resp BP Pulse Ox 97.9 F 86 18 118/78 94 L 10/31/22 07:51 10/31/22 07:51 10/31/22 07:51 10/31/22 07:51 10/31/22 07:51 I & O for Last 24 hours: Intake & Output 10/30/22 10/31/22 11/01/22 11/02/22 11:59 11:59 11:59 11:59 Intake Total 1140 / 1140 960 / 960 Output Total 1390 / 1390 2840 / 2840 Balance -250 / -250 -1880 / -1880 Weight 293 lb 10.491 oz 301 lb 2 oz Narrative: Constitutional Constitutional: no acute distress *Routine HEENT Exam Head: Present normocephalic and atraumatic Eye: Present EO
== END 2022-10-31 11:55 | disposition home or self-care (01) | DRG 475 ==
LOC: 2ND 07:08
PROVIDERS: Admitting Provider Orthopaedic Surgery; PCP Family Medicine; Visit Provider Family Medicine
PROC: 0Y6H0Z3 Detachment at Right Lower Leg, Low, Open Approach (ICD-10-PCS; CPT 27880; principal; 2022-10-28 07:30)
DX: M86.171 Other acute osteomyelitis, right ankle and foot (principal); T81.49XA Infection following a procedure, other surgical site, initial encounter; A49.02 Methicillin resistant Staphylococcus aureus infection, unspecified site; B37.9 Candidiasis, unspecified; Z86.16 Personal history of COVID-19; Z86.711 Personal history of pulmonary embolism; T50.905A Adverse effect of unspecified drugs, medicaments and biological substances, initial encounter; K59.00 Constipation, unspecified; L29.8 Other pruritus; Y83.5 Amputation of limb(s) as the cause of abnormal reaction of the patient, or of later complication, without mention of misadventure at the time of the procedure
CPT/HCPCS: 27882; 36415; 73560; 80048; 85007; 85025; 96374; 97162; 97166; 97530; C9803; J0878; J2405; J3370; U0003; U0005

== ENCOUNTER → 2022-11-18 09:52 | Outpatient (CLI) | payer BC, SELFPAY ==
[2022-11-18 10:05] LABS: Microscopic, Urine URINE MICROSCOPIC (MICROSCOPIC)
[2022-11-18 10:48] LABS: Appearance,Urine CLEAR (Clear); Bilirubin,Urine Negative (Negative); Blood, Urine Negative (Negative); Color,Urine YELLOW (Yellow); Glucose,Urine (UA) Negative (Negative); Ketones,Urine Negative (Negative); Leukocyte Esterase,Urine Negative (Negative); Nitrate,Urine Negative (Negative); Protein,Urine Negative (Negative); Specific Gravity, Urine 1.025 (1.005-1.030); Urobilinogen,Urine 0.2 EU/dl (0.2)
[2022-11-18 10:50] LABS: Basophils % 0.2 % (0.1-2.0); Eosinophils # 0.2 K/mm3 (0.0-0.4); Eosinophils % 1.5 % (0.1-12.0); Hematocrit 43.1 % (42.0-52.0); Hemoglobin 14.3 g/dL (14.1-18.0); Lymphocytes # 1.9 K/mm3 (0.7-4.5); Lymphocytes % 13.2 % (10-50); Mean Corpuscular HGB Conc 33.2 g/dL (31.8-35.4); Mean Corpuscular Hemoglobin 26.2 pg (27.0-31.2); Mean Corpuscular Volume 78.7 fl (80-94); Mean Platelet Volume 7.9 fl (7.4-10.4); Monocytes # 0.9 K/mm3 (0.1-1.0); Monocytes % 6.3 % (1.7-9.3); Neutrophils # 11.1 K/mm3 (1.8-7.8); Neutrophils % 78.8 % (37.0-80.0); Platelet Count 333 K/mm3 (142-424); Red Blood Count 5.47 M/mm3 (4.60-6.20); Red Cell Distribution Width 16.6 % (11.5-17.5); White Blood Count 14.1 K/mm3 (4.8-10.8)
[2022-11-18 10:59] LABS: Bacteria,Urine Trace /lpf; Squamous Epithelial Cell,Urine Occasional #/hpf (0-5)
[2022-11-18 11:12] LABS: Alanine Aminotransferase 34 U/L (12-78); Albumin Level 4.3 g/dl (3.5-5.0); Albumin/Globulin Ratio 1.3 (1.1-1.8); Alkaline Phosphatase 106 U/L (38-126); Anion Gap 19.1 mEq/L (5-15); Aspartate Amino Transferase 32 U/L (17-59); Bilirubin,Total 0.7 mg/dl (0.2-1.3); Blood Urea Nitrogen 17 mg/dl (9-20); Calcium 8.8 mg/dl (8.4-10.2); Carbon Dioxide 24 mmol/L (22.0-30.0); Chloride 99 mmol/L (98-107); Estimated Glomerular Filt Rate 93 ml/min (>60); GFR (African American) 112 ML/MIN (>60); Globulin 3.4 g/dL (1.3-3.2); Glucose 107 mg/dl (74-100); Potassium 4.1 mmoL/L (3.5-5.1); Sodium 138 mmol/L (136-145); Total Protein,Serum 7.7 g/dl (6.3-8.2)
[2022-11-18 11:17] LABS: C-Reactive Protein 69.5 mg/L (0-4)
[2022-11-18 11:47] LABS: Erythrocyte Sedimentation Rate 24 mm/hr (0-15)
== END ==
PROVIDERS: PCP Family Medicine; Visit Provider Orthopaedic Surgery
DX: R50.9 Fever, unspecified (principal)
CPT/HCPCS: 36415; 80053; 81001; 85025; 85651; 86140; 87040; 87086

== ENCOUNTER → 2022-11-21 09:21 | Outpatient (CLI) | payer BC, SELFPAY ==
[2022-11-21 11:17] LABS: C-Reactive Protein 49.4 mg/L (0-4)
[2022-11-21 11:54] LABS: Erythrocyte Sedimentation Rate 20 mm/hr (0-15)
== END ==
PROVIDERS: PCP Family Medicine; Visit Provider Orthopaedic Surgery
DX: R50.9 Fever, unspecified (principal)
CPT/HCPCS: 36415; 85651; 86140

== ENCOUNTER → 2022-12-02 09:39 | Outpatient (CLI) | payer BC, SELFPAY ==
--- NOTE | 2022-12-02 09:43 | XR_ITS ---
FINAL REPORT CLINICAL HISTORY: rt knee pain COMPARISON: 10/31/2022 FINDINGS: Right knee Three views were obtained. The patient is status post below the knee amputation. There are mild degenerative changes of the knee. IMPRESSION: Degenerative and postoperative changes. Reviewed, Interpreted and Dictated by Won Carey III, MD Transcribed by Madiha Ambrosio Authenticated and [facility]
== END ==
PROVIDERS: PCP Family Medicine; Visit Provider Orthopaedic Surgery
DX: M25.561 Pain in right knee (principal)
CPT/HCPCS: 73562

== ENCOUNTER → 2022-12-02 11:03 | Outpatient (POV) | payer BC, SELFPAY ==
[2022-12-02 12:13] VITALS: BP 133/90; PULSE 78; RESP 18; O2SAT 96; BMI 44.4
--- NOTE | 2022-12-02 12:57 | EXP.PAIN.OV ---
HPI Data of Consult Consult date: 12/02/22 Requesting Physician: Kiki Pimentel APRN Primary Care Provider: Macario Burkett MD Consult Narrative Reason for consult: Lumbar back pain. Right leg radiculopathy. Right leg phantom pain. History of present illness: Mr. Dennis is a 42 year old male who comes our clinic today for initial evaluation for the complaint of low back pain as well as right hip and leg radicular symptoms. 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 Since his amputation he has continued to have low lumbar back pain as well as right hip and leg radicular symptoms. Also, right phantom leg pain into his foot. He describes the pain as constant, dull, aching. The radicular pain is sharp and stabbing at times. Patient underwent lumbar laminectomy/discectomy in 2003. Patient states his low back pain as well as radicular symptoms improved for some time after the surgery. However, if certainly increase in the last 1 to 2 years. Patient is currently taking gabapentin 600 mg 1 p.o. 3 times daily. Patient was on low-dose narcotics postoperatively. However, no narcotics since the middle of October of this year. His Aries report [id number] has been reviewed and appropriate. Patient presents to our office today in a wheelchair. He is waiting to be fitted for below the knee prosthesis. CC: Kiki Pimentel APRN [facility] Disclaimer: The information contained in this section may have been updated after the patient was seen, as this information can be updated by other users. 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 Surgical History History of foot surgery History of incision and drainage Multiple procedures on right calcaneous Hx of surgical amputation of finger 7 surgeries to finger/partial amputation Previous back surgery Status post tendon repair left ankle Family History Other Hypertension Social History Smoking Status: Never smoker alcohol intake: current substance use type: denies use current occupational status: employed Travel in the last 8 weeks: None household members: spouse and children housing: house lives independently: No education level: high school caffeine: Yes special davin needs: No agree to transfusion: No do you feel safe at home: Yes victim of physical abuse: No victim of emotional abuse: No victim of sexual abuse: No would you like helpful sources: No Meds Home Medications and Allergies Home Medications Medication Instructions Recorded Confirmed Type lactobacillus combination no.4 3 3,000 mmu cells PO DAILY Supplement 10/05/22 12/02/22 History billion cell capsule (Probiotic) rivaroxaban 20 mg tablet (Xarelto) 20 mg PO QPMWITHMEAL Blood 10/05/22 12/02/22 History thinner, pulmonary embolisms oxycodone 5 mg tablet 5 mg PO Q4H PRN pain #30 tabs 10/30/22 12/02/22 Rx gabapentin 600 mg tablet 600 mg PO TID Pain 12/02/22 12/02/22 History linezolid 600 mg tablet 600 mg PO BID BOWELS 12/02/22 12/02/22 History New Prescriptions to Start Prescriptions: Allergies Allergy/AdvReac Type Severity Reaction Status Date / Time Latex, Natural Rubber Allergy Mild cooper skin Verified 12/02/22 10:06 cephalexin [From Keflex] AdvReac Mild Vomiting Verified 12/02/22 10:06 Objective Vital signs: Pulse Resp BP Pulse Ox 78 18 133/90 96 12/02/22 12:13 12/02/22 12:13
== END | disposition home or self-care (01) ==
PROVIDERS: PCP Family Medicine; Visit Provider Nurse Practitioner Family
DX: M51.16 Intervertebral disc disorders with radiculopathy, lumbar region (principal); M47.26 Other spondylosis with radiculopathy, lumbar region; G54.6 Phantom limb syndrome with pain
CPT/HCPCS: 99202; G0463

== ENCOUNTER → 2022-12-16 10:58 | Outpatient (CLI) | payer BC, SELFPAY ==
--- NOTE | 2022-12-16 11:00 | MR_ITS ---
FINAL REPORT TECHNIQUE: Multiplanar MR without contrast CLINICAL HISTORY: BACK PAIN. right leg pain. prior history back surgery 2003 COMPARISON: None FINDINGS: Sagittal images show normal vertebral height. Alignment is normal. Marrow signal pattern is unremarkable. T12-L1: Unremarkable L1-2: Unremarkable L2-3: Unremarkable L3-4: Small central disc protrusion. Mild annular disc bulge. Borderline central canal stenosis. L4-5: Soft tissue signal intensity within anterior epidural space could represent broad-based disc protrusion or scar tissue, or combination of both. MRI with contrast would better differentiate. Postoperative changes left laminectomy. Mild central canal stenosis. Mild right and moderate left neural foraminal narrowing. L5-S1: Mild annular disc bulge. Moderate facet arthropathy. Mild central canal stenosis. Moderate bilateral neural foraminal narrowing. IMPRESSION: Central disc protrusion versus scar tissue at L4-5 eccentric to the left causing mass effect on the thecal sac and left L5 nerve root. MRI with contrast would better differentiate between disc and scar tissue. Mild canal stenosis at L5-S1. Reviewed, Interpreted and Dictated by Gilma Ramirez MD Transcribed by Lulu Patrick Authenticated and [facility]
== END ==
PROVIDERS: PCP Family Medicine; Visit Provider Nurse Practitioner Family
DX: M54.50 Low back pain, unspecified (principal)
CPT/HCPCS: 72148; 76376

== ENCOUNTER → 2022-12-26 13:59 | Outpatient (POV) | payer BC, SELFPAY ==
--- NOTE | 2022-12-26 15:36 | EXP.PAIN.SOA ---
[facility] Pain Management SOAP Note Subjective:: Patient is a pleasant 42-year-old male who presents today for follow-up. We are currently treating the patient for degenerative disc disease of lumbar spine with lumbar radiculopathy symptoms, right-sided phantom leg pain. Today he rates his pain a 5 out of 10. Patient denies any new trauma or injury. Patient denies any change location or type of pain he experiences. Patient states he continues to have significant pain along his right lower leg at one location. He does describe this as a constant aching, throbbing sensation. He does states that the pain interferes with his ability perform activities of daily living such as cooking and cleaning. He does state that if he puts pressure in 1 certain particular spot on his right lower leg the pain does resolve. Patient does have a history of 10 surgeries and 23 procedures in the past. Patient does also have low back pain with radiating symptoms into his left leg. Patient did just recently have a MRI of his lumbar spine and is presenting today to review the findings. Patient does see Dr. Dean who performed his right below the knee amputation. Patient states that Dr. Dean has mentioned that he may have missed some nerves along that leg and that if we cannot provide significant relief he may have to go back in to deaden some nerves. Patient also states that in the past he did see a neurosurgeon in [place] who stated he may need a lumbar fusion in the future. Patient has previously been prescribed pain medications by Dr. Dean in the past however he has not had any recent prescriptions. Patient does take gabapentin 600 mg 3 times a day. Patient denies any side effects from these medications. Patient is on Xarelto related to a history of PEs that is prescribed by Dr. Burkett's office currently. He does present today in wheelchair for additional help with ambulation. He is still waiting for his knee prosthesis. His Aries is [id number]. Its been reviewed and appropriate. Review of Systems: General: No recent weight changes, no fever, no sleep disturbances Respiratory: No cough, no shortness of air, no recurring pulmonary infections Cardiovascular/peripheral vascular: No chest pain, no palpitations, no edema, no shortness of breath Gastrointestinal: No new onset incontinence, normal bowel movements reported Genitourinary: No new onset incontinence Musculoskeletal: Right below the knee phantom pain, low back pain, left leg pain Psychiatric: [Normal mood/affect] Neurological: [Denies weakness in extremities], [denies balance issues] Objective:: Physical Exam: General: Alert and oriented x3, no acute distress, pleasant and cooperative Lungs: Respirations even and unlabored, symmetrical chest expansion Eyes: PERRL Musculoskeletal: Flexion and extension of lumbar [spine] somewhat guarded secondary to pain, [antalgic gait noted] point tenderness noted along right tibialis anterior muscle Neurological: Speech clear, no gross sensory deficit FINAL REPORT TECHNIQUE: Multiplanar MR without contrast CLINICAL HISTORY: BACK PAIN. right leg pain. prior history back surgery 2004 COMPARISON: None FINDINGS: Sagittal images show normal vertebral height. Alignment is normal. Marrow signal pattern is unremarkable.? T12-L1: Unremarkable ? L1-2: Unremarkable ? L2-3: Unremarkable? L3-4: Small central disc protrusion.? Mild annular disc bulge. Borderline central canal stenosis.? L4-5:? Soft tissue signal intensity within anterior epidural space could represent broad-based disc protrusion or scar tissue, or combination of both.? MRI with contrast would better differentiate. Postoperative changes left laminectomy.? Mild central canal stenosis.? Mild right and moderate left neural foraminal narrowing.? L5-S1:? Mild annular disc bulge.? Moderate facet arthropathy.? Mild central canal stenosis.? Moderate bilateral neural foraminal narrowing. IMPRESSION: Central disc p
[2022-12-26 15:39] VITALS: BP 134/81; PULSE 87; RESP 20; BMI 41.8
== END ==
PROVIDERS: PCP Family Medicine; Visit Provider Nurse Practitioner Family
DX: M51.16 Intervertebral disc disorders with radiculopathy, lumbar region (principal); G54.6 Phantom limb syndrome with pain; Z89.511 Acquired absence of right leg below knee
CPT/HCPCS: 99212; G0463

== ENCOUNTER 2023-01-03 10:26 | Day surgery (SDC) | payer BC, SELFPAY ==
[2023-01-03 10:39] VITALS: BP 138/95; PULSE 74; RESP 18; TEMP 36.6; O2SAT 96; BMI 41.8
[2023-01-03 11:04] VITALS: BP 146/100; PULSE 76; RESP 18; O2SAT 97
[2023-01-03 11:05] VITALS: BP 146/100; PULSE 76; RESP 18; O2SAT 97
--- NOTE | 2023-01-03 11:10 | EXP.PAIN.PRO ---
Procedure Date: 01/03/23 Time: 11:10 Anesthesiologist:: Yasmani Peñaloza CRNA Complications:: None Pre-procedure Diagnosis:: Phantom pain right foot. Post-procedure Diagnosis:: Same. Indications for Procedure:: Patient is a very pleasant 42-year-old male that comes our clinic today for right terminal anterior tibialis nerve block. Patient is 2 months status post right foot amputation above the ankle. Patient is experiencing continuous phantom pain that he describes is tingling pain across his distal foot including the toes. Patient rates the pain 10/10. Patient arrives today for a diagnostic block of the anterior tibialis nerve. Procedure Details:: Details of the procedure explained to the patient. The patient taken the procedure room placed in the supine position on the fluoroscopy table. The area over right distal tibial stump was cleaned using chlorhexidine as a cleansing solution. Using fluoroscopy guidance a 25-gauge inch and half needle was used to access the anterior, medial, lateral portion of the tibial stump. At each area 3 cc was injected after negative aspiration. The solution injected was 9 cc total of 0.25% Marcaine +1% lidocaine and 40 mg of Depo-Medrol. Patient tolerated procedure without difficulty. There are no complications. Plan and Disposition:: Patient reports no phantom pain in the right foot upon discharge. He will follow-up with Dr. Dean.
[2023-01-03 11:13] VITALS: BP 125/82; PULSE 78; RESP 18; O2SAT 96
== END 2023-01-03 11:13 | disposition home or self-care (01) ==
PROVIDERS: PCP Family Medicine; Visit Provider Nurse Anesthetist, Certified Registered
DX: G54.6 Phantom limb syndrome with pain (principal); Z89.431 Acquired absence of right foot
CPT/HCPCS: 64450; J1040

== ENCOUNTER → 2023-01-18 12:30 | Outpatient (POV) | payer BC, SELFPAY ==
--- NOTE | 2023-01-18 13:24 | EXP.PAIN.SOA ---
[facility] Pain Management SOAP Note Subjective:: Patient is a pleasant 42-year-old male who presents today for follow-up of right terminal anterior tibialis nerve block on 01/03/2023. We are currently treating the patient for degenerative disc disease of lumbar spine with lumbar radiculopathy symptoms, right-sided phantom leg pain. Today he rates his pain a 5 out of 10. Patient states that he did get some improvement however it was not a whole lot and only lasted while the numbing medication worked. Patient states he immediately returned to his baseline after and that he felt like the injection was not put where most of his pain 1 is. Patient denies any new trauma or injury. Patient denies any change location or type of pain he experiences. He does continue to state his pain is all along his right side of his lower leg and describes it as an aching, throbbing sensation that is worse with increased activity. Patient does state that he is scheduled to see Dr. Dean on Monday who had previously mentioned that he may have to do a revision to burn additional nerves that may have been left behind following his amputation. Patient is currently managed with gabapentin 800 mg 3 times a day. Patient denies any side effects from this medication. He is requesting a refill at today's visit. His Aries is [id number]. Its been reviewed and appropriate. Review of Systems: General: No recent weight changes, no fever, no sleep disturbances Respiratory: No cough, no shortness of air, no recurring pulmonary infections Cardiovascular/peripheral vascular: No chest pain, no palpitations, no edema, no shortness of breath Gastrointestinal: No new onset incontinence, normal bowel movements reported Genitourinary: No new onset incontinence Musculoskeletal: Right leg pain Psychiatric: [Normal mood/affect] Neurological: [Denies weakness in extremities], [denies balance issues] Objective:: Physical Exam: General: Alert and oriented x3, no acute distress, pleasant and cooperative Lungs: Respirations even and unlabored, symmetrical chest expansion Eyes: PERRL Musculoskeletal: Flexion and extension of right knee somewhat guarded secondary to pain, [antalgic gait noted] point tenderness noted at anterior tibialis muscle Neurological: Speech clear, no gross sensory deficit Assessment:: Degenerative disc disease of lumbar spine with lumbar radiculopathy symptoms, right-sided phantom leg pain Plan:: Patient continues to experience significant pain in his right leg with limited range of motion. I have discussed with the patient that we can try a repeat injections however we will wait until after his appointment with Dr. Dean. I will refill the patient's gabapentin 800 mg 3 times a day and provide 1 month supply of this medication. Patient will return to clinic in 1 month for reevaluation of symptoms and plan of care. Patient has been instructed to contact the clinic with any concerns before the next appointment. Dr. Coronel has reviewed this note and agrees with this plan of care. This note was dictated using voice recognition software and make contain errors or omissions. [facility] Disclaimer: The information contained in this section may have been updated after the patient was seen, as this information can be updated by other users. 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
[2023-01-18 13:42] VITALS: BP 137/100; PULSE 100; RESP 18; O2SAT 94; BMI 44.1
== END | disposition home or self-care (01) ==
PROVIDERS: PCP Family Medicine; Visit Provider Nurse Practitioner Family
DX: M51.16 Intervertebral disc disorders with radiculopathy, lumbar region (principal); G54.6 Phantom limb syndrome with pain
CPT/HCPCS: 99212; G0463

== ENCOUNTER → 2023-01-20 09:22 | Outpatient (CLI) | payer BC, SELFPAY ==
--- NOTE | 2023-01-20 09:34 | XR_ITS ---
FINAL REPORT CLINICAL HISTORY: rt knee pain COMPARISON: None FINDINGS: Three views of the right knee reveal no evidence of fracture or dislocation. Postoperative changes from below the knee amputation. The bony alignment is normal. The joint spaces are preserved. There is no evidence of joint effusion. No localized soft tissue abnormality is identified. IMPRESSION: No acute abnormality identified. Reviewed, Interpreted and Dictated by Won Carey III, MD Transcribed by Lulu Patrick Authenticated and [facility]
== END ==
PROVIDERS: PCP Family Medicine; Visit Provider Orthopaedic Surgery
DX: M25.561 Pain in right knee (principal)
CPT/HCPCS: 73562

== ENCOUNTER 2023-01-31 09:00 | Day surgery (SDC) | payer BC, SELFPAY ==
[2023-01-31 09:37] VITALS: BP 134/81; PULSE 70; RESP 18; TEMP 36.7; O2SAT 96; BMI 39.0
[2023-01-31 10:27] VITALS: BP 134/81; PULSE 70; RESP 18
--- NOTE | 2023-01-31 13:40 | EXP.PAIN.SOA ---
[facility] Pain Management SOAP Note Subjective:: Patient is a pleasant 42-year-old male that comes our clinic today for trigger point injections of the right tibial stump. Patient had similar injections done in the recent past with 3 to 4 hours of relief in his right foot and toe phantom pain. Patient continues having phantom nerve pain in his right ankle and foot including his toes following below the knee amputation. I discussed in detail with the patient regarding further injective therapy. I am not certain we are helping with posterior tibial trigger point injections. I suggest the patient to return on Monday to see Dr. Coronel for further evaluation. Objective:: Patient is awake alert [place] x3. No acute distress. Flexion-extension cervical lumbar spine normal. Deep tendon reflexes upper extremities normal. Lower left extremity normal. There is no gross sensory deficit with the exception of the right foot phantom pain the patient is experiencing. Gait is antalgic. Patient in a wheelchair today. However, patient is learning to walk on prosthesis for the right BKA. Assessment:: Right phantom foot pain following recent BKA. Plan:: Patient will return on Monday to discuss treatment options with Dr. Coronel. [facility] Disclaimer: The information contained in this section may have been updated after the patient was seen, as this information can be updated by other users. 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 Surgical History History of foot surgery History of incision and drainage Multiple procedures on right calcaneous Hx of surgical amputation of finger 7 surgeries to finger/partial amputation Previous back surgery Status post tendon repair left ankle Family History Other Hypertension Social History (Updated 01/31/23 @ 09:39 by Juju Erickson RN) Smoking Status: Never smoker alcohol intake: current substance use type: denies use current occupational status: other Travel in the last 8 weeks: None household members: spouse and children housing: house lives independently: No education level: high school caffeine: Yes special davin needs: No agree to transfusion: No do you feel safe at home: Yes victim of physical abuse: No victim of emotional abuse: No victim of sexual abuse: No would you like helpful sources: No
== END 2023-01-31 10:28 | disposition home or self-care (01) ==
LOC: SC.PAINP 09:00
PROVIDERS: PCP Family Medicine; Visit Provider Nurse Anesthetist, Certified Registered
DX: G54.6 Phantom limb syndrome with pain (principal); Z89.511 Acquired absence of right leg below knee
CPT/HCPCS: 99212; G0463

== ENCOUNTER 2023-02-03 13:11 | Day surgery (SDC) | payer BC, SELFPAY ==
[2023-02-03 13:20] VITALS: BP 128/89; PULSE 94; RESP 16; TEMP 36.9; O2SAT 95; BMI 40.1
[2023-02-03 13:23] VITALS: BP 131/76; PULSE 80; RESP 16; O2SAT 94
--- NOTE | 2023-02-03 14:49 | P.PCN_ITS ---
Procedure Date: 02/03/23 Time: 14:49 Anesthesiologist:: Omega Coronel MD Complications:: None Pre-procedure Diagnosis:: Complex regional pain syndrome type one of the right lower extremity with phantom limb pain status post below-knee amputation he has increasing phantom limb pain down his right leg with lumbar radiculopathy symptoms. Post-procedure Diagnosis:: Same Indications for Procedure:: This patient is a pleasant 42-year-old white male who had below-knee amputation of his right leg status post infection after surgery to his foot. He continues to have phantom limb pain down his right leg. He has had trigger point injections which have not given him any benefit. Given his lumbar radicular symptoms and phantom limb pain along with complex regional pain syndrome type I symptoms we will plan on lumbar epidural steroid injection under fluoroscopy today. He does have swelling, discoloration and increasing pain of his right stump Procedure Details:: Informed consent was obtained and the risk and benefits of the procedure was e xplained to the patient. The patient was taken to the procedure room. The patient was placed prone on the procedure table. The patient was prepped and draped in sterile fashion. C-arm fluoroscopy was used to view the lumbar spine. Skin and subcutaneous tissues were anesthetized using lidocaine. I placed an 18-gauge epidural needle and advanced into the L4-L5 interspace using fluoroscopic guidance and [id number] to air. After confirmation of needle placement in the epidural space with dye I injected 6 mL of lidocaine 1.5% with Depo-Medrol 80 mg. Patient tolerated the procedure well with no complications. Plan and Disposition:: We will follow-up with this patient in 2 weeks. Will reevaluate symptoms at that time. If successful we will plan on repeat injection in the future. Definitive therapy may be spinal cord stimulation.
== END 2023-02-03 13:23 | disposition home or self-care (01) ==
LOC: SC.PAIN 02-07 09:30
PROVIDERS: PCP Family Medicine; Visit Provider Anesthesiology
DX: G90.521 Complex regional pain syndrome I of right lower limb (principal); G54.6 Phantom limb syndrome with pain; Z89.511 Acquired absence of right leg below knee
CPT/HCPCS: 62323; J1040; Q9966

== ENCOUNTER → 2023-02-15 10:36 | Outpatient (POV) | payer BC, SELFPAY ==
[2023-02-15 10:54] VITALS: BP 150/103; PULSE 86; RESP 18; O2SAT 95; BMI 40.1
--- NOTE | 2023-02-15 10:55 | EXP.PAIN.SOA ---
[facility] Pain Management SOAP Note Subjective:: Patient is a pleasant 42-year-old male who presents today for follow-up of lumbar epidural steroid injection on 02/03/2023. We are currently treating the patient for complex regional pain syndrome of the right lower extremity with phantom limb pain, status post below the knee amputation, low back pain with lumbar radiculopathy symptoms. Today he rates his pain a 4 out of 10. Patient denies any new trauma or injury. He does state that the injection helped for 4 days providing 100% the first day and that it is did well overall the next couple of days however he does state that he is back to his baseline today. He does also state that at his last visit with Dr. Dean he ordered an EMG test that did have no significant findings and everything was within normal limits. Patient does state that Dr. Godinez was stating that he probably would have to go back in and remove the nerve bundle in his right lower extremity as what was previously discussed by Dr. Dean. He does state that he has a follow-up appointment at Dr. Dean's office however it is a little bit further out and that he is going to stop by there today to see about moving it up. Review of Systems: General: No recent weight changes, no fever, no sleep disturbances Respiratory: No cough, no shortness of air, no recurring pulmonary infections Cardiovascular/peripheral vascular: No chest pain, no palpitations, no edema, no shortness of breath Gastrointestinal: No new onset incontinence, normal bowel movements reported Genitourinary: No new onset incontinence Musculoskeletal: Right below the knee pain Psychiatric: [Normal mood/affect] Neurological: [Denies weakness in extremities], [denies balance issues] Objective:: Physical Exam: General: Alert and oriented x3, no acute distress, pleasant and cooperative Lungs: Respirations even and unlabored, symmetrical chest expansion Eyes: PERRL Musculoskeletal: Flexion and extension of lumbar [spine] somewhat guarded secondary to pain, [antalgic gait noted] Neurological: Speech clear, no gross sensory deficit Assessment:: Complex regional pain syndrome of right lower extremity with phantom limb pain, status post below the knee amputation right-sided, low back pain with lumbar radiculopathy symptoms Plan:: Patient continues to have significant pain below his right knee amputation. Patient did have limited range of motion of his lumbar spine during today's visit. I have discussed with the patient that he may benefit from a repeat lumbar epidural steroid injection however at this time he would like to wait and discuss with Dr. Dean about surgical interventions. Patient will return to clinic in 1 month for reevaluation of symptoms and plan of care. Patient has been instructed to contact the clinic with any concerns before the next appointment. Dr. Coronel has reviewed this note and agrees with this plan of care. This note was dictated using voice recognition software and make contain errors or omissions. [facility] Disclaimer: The information contained in this section may have been updated after the patient was seen, as this information can be updated by other users. 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
== END ==
PROVIDERS: PCP Family Medicine; Visit Provider Nurse Practitioner Family
DX: G90.521 Complex regional pain syndrome I of right lower limb (principal); G54.6 Phantom limb syndrome with pain; Z89.511 Acquired absence of right leg below knee; M54.16 Radiculopathy, lumbar region
CPT/HCPCS: 99212; G0463

== ENCOUNTER 2023-03-22 14:58 | Emergency (ER) | payer BC, SELFPAY ==
[2023-03-22 15:05] VITALS: BP 135/88; PULSE 96; RESP 18; TEMP 37.2; O2SAT 100; BMI 40.1
--- NOTE | 2023-03-22 15:13 | EXP.UTC ---
Discharge Plan Disposition Patient Disposition: Home, Self-Care Condition: Good Prescriptions Prescriptions: New methylprednisolone 4 mg Tablets,Dose Pack 4 mg PO DIRECTED Qty: 21 0RF ondansetron 4 mg Tablet,Disintegrating 4 mg PO Q8H PRN (Reason: Nausea) Qty: 12 0RF No Action gabapentin [Neurontin] 800 mg tablet 800 mg PO TID Qty: 90 0RF Referrals Follow up/Referrals: Macario Burkett MD [Primary Care Provider] - See instructions Activity Restrictions/Add. Instructions Additional Instructions/Restrictions: Drink plenty of fluids. Take tylenol or ibuprofen for pain or fever. Take the medications as directed. Follow up with your regular doctor. GO TO THE ER FOR ANY WORSENING SYMPTOMS Clinical Impressions Clinical Impression: Acute viral syndrome Instructions Patient Instructions: DI for Viral Syndrome Discharge ED Provider: Saji Reno [facility] General Stated complaint: Bodyaches, fever Time Seen by Provider: 03/22/23 15:13 History of Present Illness Provider Complaint: He states that for the past 2 days he has had body aches, chills, and malaise. He has had n/v/d also. Related Data Previous Rx's Medication Instructions Recorded gabapentin 800 mg tablet 800 mg PO TID . #90 tabs 01/18/23 (Neurontin) methylprednisolone 4 mg tablets in 4 mg PO DIRECTED #21 tabs 03/22/23 a dose pack ondansetron 4 mg disintegrating 4 mg PO Q8H PRN Nausea #12 tabs 03/22/23 tablet Allergies Allergy/AdvReac Type Severity Reaction Status Date / Time Latex, Natural Rubber Allergy Mild cooper skin Verified 03/22/23 15:14 cephalexin [From Keflex] AdvReac Mild Vomiting Verified 03/22/23 15:14 [facility] Disclaimer: The information contained in this section may have been updated after the patient was seen, as this information can be updated by other users. 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 Surgical History History of foot surgery History of incision and drainage Multiple procedures on right calcaneous Hx of surgical amputation of finger 7 surgeries to finger/partial amputation Previous back surgery Status post tendon repair left ankle Family History Other Hypertension Social History Smoking Status: Never smoker alcohol intake: current substance use type: denies use current occupational status: employed Travel in the last 8 weeks: None household members: spouse and children housing: house lives independently: No education level: high school caffeine: Yes special davin needs: No agree to transfusion: No do you feel safe at home: Yes victim of physical abuse: No victim of emotional abuse: No victim of sexual abuse: No would you like helpful sources: No ROS Obtained: Yes All systems reviewed & no additional complaints except as documented Constitutional Constitutional: Reports chills and Reports fever(s) Eyes Eyes: Denies eye discharge ENT Ears, Nose, Mouth, and Throat: Reports as per HPI Cardiovascular Cardiovascular: Denies chest pain Respiratory Respiratory: Denies chest congestion and Reports cough Gastrointestinal Gastrointestingal: Reports nausea; Denies abdominal pain, constipation, cramping, diarrhea or vomiting Musculoskeletal Musculoskeletal: Denies arthralgias Integumentary/Breasts Skin/Breast: Denies rash Neurologic Neurologic: Denies paresthesias
[2023-03-22 15:20] LABS: UTC Influenza A Antigen Negative (Negative); UTC Influenza B Antigen Negative (Negative)
[2023-03-22 16:31] VITALS: BP 135/88; PULSE 96; RESP 18; TEMP 37.2; O2SAT 100
== END 2023-03-22 16:31 | disposition home or self-care (01) ==
PROVIDERS: Emergency Provider Nurse Practitioner Family; PCP Family Medicine
DX: R11.2 Nausea with vomiting, unspecified (principal); R68.83 Chills (without fever); R53.81 Other malaise; B34.9 Viral infection, unspecified; K21.9 Gastro-esophageal reflux disease without esophagitis; L40.9 Psoriasis, unspecified
CPT/HCPCS: 87635; 87804; 96372; 99212; 99214; G0463

== ENCOUNTER → 2023-05-09 15:03 | Outpatient (CLI) | payer BC, SELFPAY ==
[2023-05-09 15:22] LABS: Basophils % 0.5 % (0.1-2.0); Eosinophils # 0.2 K/mm3 (0.0-0.4); Eosinophils % 1.9 % (0.1-12.0); Hematocrit 46.6 % (42.0-52.0); Hemoglobin 15.8 g/dL (14.1-18.0); Lymphocytes # 1.9 K/mm3 (0.7-4.5); Lymphocytes % 22.4 % (10-50); Mean Corpuscular HGB Conc 33.9 g/dL (31.8-35.4); Mean Corpuscular Hemoglobin 27.2 pg (27.0-31.2); Mean Corpuscular Volume 80.2 fl (80-94); Mean Platelet Volume 7.2 fl (7.4-10.4); Monocytes # 0.4 K/mm3 (0.1-1.0); Monocytes % 4.8 % (1.7-9.3); Neutrophils # 6.1 K/mm3 (1.8-7.8); Neutrophils % 70.4 % (37.0-80.0); Platelet Count 243 K/mm3 (142-424); Red Blood Count 5.81 M/mm3 (4.60-6.20); Red Cell Distribution Width 14.6 % (11.5-17.5); White Blood Count 8.6 K/mm3 (4.8-10.8)
[2023-05-09 15:45] LABS: Erythrocyte Sedimentation Rate 5 mm/hr (0-15)
[2023-05-09 16:12] LABS: Chloride 104 mmol/L (98-107)
[2023-05-09 16:13] LABS: Potassium 3.8 mmoL/L (3.5-5.1); Sodium 139 mmol/L (136-145)
[2023-05-09 16:15] LABS: Alanine Aminotransferase 33 U/L (12-78); Alkaline Phosphatase 75 U/L (38-126); Anion Gap 11.8 mEq/L (5-15); Aspartate Amino Transferase 36 U/L (17-59); Bilirubin,Total 0.5 mg/dl (0.2-1.3); Blood Urea Nitrogen 13 mg/dl (9-20); Carbon Dioxide 27 mmol/L (22.0-30.0); Estimated Glomerular Filt Rate 93 ml/min (>60); GFR (African American) 112 ML/MIN (>60)
[2023-05-09 16:16] LABS: Albumin Level 4.5 g/dl (3.5-5.0); Albumin/Globulin Ratio 1.3 (1.1-1.8); Calcium 8.3 mg/dl (8.4-10.2); Globulin 3.5 g/dL (1.3-3.2); Glucose 113 mg/dl (74-100)
[2023-05-09 16:21] LABS: C-Reactive Protein 10.9 mg/L (0-4)
== END ==
PROVIDERS: PCP Family Medicine; Visit Provider Orthopaedic Surgery
DX: T81.49XA Infection following a procedure, other surgical site, initial encounter (principal)
CPT/HCPCS: 36415; 80053; 85025; 85651; 86140

== ENCOUNTER 2023-05-22 09:30 | Outpatient (CLI) | payer BC, SELFPAY ==
[2023-05-22 09:35] VITALS: BMI 41.1
[2023-05-22 09:58] LABS: Basophils % 0.3 % (0.1-2.0); Eosinophils # 0.4 K/mm3 (0.0-0.4); Hemoglobin 13.9 g/dL (14.1-18.0); Lymphocytes # 2.1 K/mm3 (0.7-4.5); Lymphocytes % 15.1 % (10-50); Mean Corpuscular HGB Conc 33.9 g/dL (31.8-35.4); Mean Corpuscular Hemoglobin 27.9 pg (27.0-31.2); Mean Corpuscular Volume 82.1 fl (80-94); Mean Platelet Volume 7.4 fl (7.4-10.4); Monocytes # 0.8 K/mm3 (0.1-1.0); Monocytes % 5.8 % (1.7-9.3); Neutrophils # 10.3 K/mm3 (1.8-7.8); Neutrophils % 75.8 % (37.0-80.0); Platelet Count 255 K/mm3 (142-424); Red Blood Count 4.99 M/mm3 (4.60-6.20); Red Cell Distribution Width 14.7 % (11.5-17.5); White Blood Count 13.5 K/mm3 (4.8-10.8)
[2023-05-22 10:04] LABS: Chloride 99 mmol/L (98-107); Potassium 4.1 mmoL/L (3.5-5.1); Sodium 134 mmol/L (136-145)
[2023-05-22 10:06] LABS: Blood Urea Nitrogen 18 mg/dl (9-20); Creatinine Clearance Estimated 114 mL/min (50-200); Estimated Glomerular Filt Rate 93 ml/min (>60); GFR (African American) 112 ML/MIN (>60)
[2023-05-22 10:07] LABS: Alanine Aminotransferase 44 U/L (12-78); Albumin Level 3.9 g/dl (3.5-5.0); Albumin/Globulin Ratio 1.1 (1.1-1.8); Alkaline Phosphatase 96 U/L (38-126); Anion Gap 12.1 mEq/L (5-15); Aspartate Amino Transferase 41 U/L (17-59); Bilirubin,Total 0.7 mg/dl (0.2-1.3); Calcium 8.3 mg/dl (8.4-10.2); Carbon Dioxide 27 mmol/L (22.0-30.0); Globulin 3.7 g/dL (1.3-3.2); Glucose 103 mg/dl (74-100); Total Protein,Serum 7.6 g/dl (6.3-8.2)
[2023-05-22 10:08] LABS: Creatine Kinase 61 U/L (55-170)
[2023-05-22 10:13] LABS: C-Reactive Protein 120.5 mg/L (0-4)
[2023-05-22 10:26] LABS: Erythrocyte Sedimentation Rate 22 mm/hr (0-15)
== END 2023-05-22 10:05 | disposition home or self-care (01) ==
LOC: INF 09:31
PROVIDERS: Internal Medicine Infectious Disease; PCP Family Medicine; Visit Provider Physician Assistant Surgical
DX: Z45.2 Encounter for adjustment and management of vascular access device (principal); Z48.01 Encounter for change or removal of surgical wound dressing; M86.18 Other acute osteomyelitis, other site
CPT/HCPCS: 36592; 80053; 82550; 85025; 85651; 86140

== ENCOUNTER → 2023-05-25 11:14 | Outpatient (CLI) | payer BC, SELFPAY ==
--- NOTE | 2023-05-25 11:17 | CA_ITS ---
FINAL REPORT TECHNIQUE: Multiple transverse and longitudinal images were performed of the right femoral-popliteal deep venous system with augmentation and compression maneuvers. CLINICAL HISTORY: S/P RT BKA REVISION FEW WKS AGO,FEVER,HX DVT COMPARISON: None FINDINGS: Right lower extremity duplex ultrasound demonstrates poor compressibility and thrombus obstructing the right femoral vein. The popliteal vein was difficult to image, however does not appear to be compressible so that thrombus may also be present in the popliteal vein. There are also some foci in the inguinal region on the right side that have an appearance most suggestive of adenopathy, the largest node measures up to 4 cm in length. IMPRESSION: Deep venous thrombosis in the distal right femoral vein and probably involving the right popliteal vein as well although this area was more difficult to visualize. These results were given by the technologist to Dr. Dean 05/25/2023. Right inguinal abdomen as described. Reviewed, Interpreted and Dictated by Valentin Argueta MD Transcribed by Kate Verdugo Authenticated and . [facility]
== END ==
PROVIDERS: PCP Family Medicine; Visit Provider Orthopaedic Surgery
DX: M79.604 Pain in right leg (principal); M79.89 Other specified soft tissue disorders; Z86.718 Personal history of other venous thrombosis and embolism
CPT/HCPCS: 93971

== ENCOUNTER 2023-05-26 07:17 | Emergency (ER) | payer BC, SELFPAY ==
[2023-05-26] VITALS (10 sets, daily range): BP systolic 99–130; BP diastolic 54–89; PULSE 85–96; RESP 18–20; TEMP 37.6; O2SAT 93–98; BMI 41.8
--- NOTE | 2023-05-26 07:34 | CT_ITS ---
FINAL REPORT TECHNIQUE: Postcontrast axial images of the chest were performed in a CTA protocol. This study was performed with techniques to keep radiation doses as low as reasonably achievable, (ALARA). Individualized dose reduction technique using automated exposure control or adjustment of mA and/or kV according to the patient's size were employed. CLINICAL HISTORY: recent DVT diagnosis, difficulty breathing FINDINGS: There are small scattered mediastinal lymph nodes. There is a right paratracheal lymph node measuring up to 1.2 cm. A filling defect is seen in the right interlobar and right lower lobe pulmonary artery on coronal images 54-59 of series 1001. There is mild scarring at the lung bases. Minimal groundglass opacities are seen in the upper lobes bilaterally. There is a more localized density in the medial right lower lobe on image 59 of series 1001 which is likely inflammatory. There is no pleural or pericardial effusion. Heart is normal in size. IMPRESSION: Acute PE as above. Dense medial right lower lobe density, favor inflammatory. Recommend follow-up CT in 1 month. Reviewed, Interpreted and Dictated by Valentin Argueta MD Transcribed by Gwen Gonzalez Authenticated and [facility]
--- NOTE | 2023-05-26 07:34 | CT_ITS ---
FINAL REPORT TECHNIQUE: After the administration of IV contrast, axial images through the right lower extremity was performed by computed tomography. Sagittal and coronal reformatted images were obtained and reviewed. This study was performed with techniques to keep radiation doses as low as reasonably achievable (ALARA). Individualized dose reduction techniques using automated exposure control or adjustment of mA and/or kV according to the patient's size were employed. CLINICAL HISTORY: recent amputation, high fevers FINDINGS: There is an acute pulmonary embolism in the right interlobar and right lower lobe pulmonary arteries. The liver, spleen, pancreas, adrenals, and kidneys are unremarkable. No pelvic mass or inflammation is identified. There is abnormal subcutaneous soft tissue edema throughout the lateral thigh. There is marked edema in the region of the right knee. Postoperative changes are seen from prior right abfki-qai-jhmw amputation. There is a fluid collection inferior to the amputated tibia. Fluid collection measures 7.3 x 3.5 cm, may represent a hematoma, seroma, or abscess. IMPRESSION: Acute pulmonary embolism. Fluid collection inferior to the amputated tibia, may represent hematoma, seroma, or abscess. Reviewed, Interpreted and Dictated by Valentin Argueta MD Transcribed by Madiha Ambrosio Authenticated and . [facility]
--- NOTE | 2023-05-26 07:39 | HMH.EDGENADL ---
Discharge Plan Disposition Patient Disposition: Xfer Other Chief Complaint: Fever Prescriptions Prescriptions: No Action gabapentin [Neurontin] 800 mg tablet 800 mg PO TID Qty: 90 0RF methylprednisolone 4 mg Tablets,Dose Pack 4 mg PO DIRECTED Qty: 21 0RF ondansetron 4 mg Tablet,Disintegrating 4 mg PO Q8H PRN (Reason: Nausea) Qty: 12 0RF Referrals Follow up/Referrals: Macario Burkett MD [Primary Care Provider] - See instructions Clinical Impressions Clinical Impression: Pulmonary embolism, Fever, Postoperative seroma, Hypoxemia Discharge ED Provider: Zeeshan Gurrola General Adult HPI General Chief complaint: Fever Stated complaint: vomiting,fever,headache Time Seen by Provider: 05/26/23 07:22 Mode of Arrival: Wheelchair Source of Information: Patient Limitations: No Limitations Description of Symptoms (Recalled from ER Triage Doc. by RN): Patient reports fever, vomiting, headache and sore throat. States he was diagnosed with blood clots in his leg yesterday and was started on Xarelto. Patient with recent surgeries to right leg related to amputation. 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 His initial amputation was performed in October and he had another operation at the beginning this month with Dr. Dean. Dr. Dean has been following him the entire time during this course. He is also recently reinitiated daptomycin through a PICC line in his right upper extremity. He is followed by an infectious disease doctor in [place]. States that over the last 48 hours he has developed significant fever up to 103 and extreme weakness and nausea and vomiting. No abdominal pain he does state he is having some difficulty breathing has a history of pulmonary embolisms in the past. He is on Xarelto at the moment was initiated on this yesterday after he came to the hospital and got a lower extremity ultrasound that was ordered by Dr. Dean which was positive for DVT and he was started on Xarelto. Last time he had a pulmonary embolism he stated he had severe pain in his chest he has none of that now and just has a little bit of difficulty with breathing but he also describes a mild cough. Also complains of a sore throat at the moment and a headache. Denies any ear pain denies any rash etc. States he saw Dr. Dean yesterday who stated that his right lower extremity stump clinically looked well. Related Data Previous Rx's Medication Instructions Recorded gabapentin 800 mg tablet 800 mg PO TID . #90 tabs 01/18/23 (Neurontin) methylprednisolone 4 mg tablets in 4 mg PO DIRECTED #21 tabs 03/22/23 a dose pack ondansetron 4 mg disintegrating 4 mg PO Q8H PRN Nausea #12 tabs 03/22/23 tablet Allergies Allergy/AdvReac Type Severity Reaction Status Date / Time Latex, Natural Rubber Allergy Mild cooper skin Verified 03/22/23 15:14 cephalexin [From Keflex] AdvReac Mild Vomiting Verified 03/22/23 15:14 PFS PFS Disclaimer: The information contained in this section may have been updated after the patient was seen, as this information can be updated by other users. 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
[2023-05-26 07:51] LABS: Basophils # 0.1 K/mm3 (0-0.2); Basophils % 0.5 % (0.1-2.0); Eosinophils # 0.2 K/mm3 (0.0-0.4); Eosinophils % 2.2 % (0.1-12.0); Hematocrit 39.3 % (42.0-52.0); Hemoglobin 13.7 g/dL (14.1-18.0); Lymphocytes # 1.3 K/mm3 (0.7-4.5); Lymphocytes % 13.7 % (10-50); Mean Corpuscular HGB Conc 34.7 g/dL (31.8-35.4); Mean Corpuscular Hemoglobin 27.8 pg (27.0-31.2); Mean Corpuscular Volume 79.9 fl (80-94); Mean Platelet Volume 7.5 fl (7.4-10.4); Monocytes # 0.6 K/mm3 (0.1-1.0); Monocytes % 6.4 % (1.7-9.3); Neutrophils # 7.4 K/mm3 (1.8-7.8); Neutrophils % 77.3 % (37.0-80.0); Platelet Count 316 K/mm3 (142-424); Red Blood Count 4.92 M/mm3 (4.60-6.20); Red Cell Distribution Width 14.3 % (11.5-17.5); White Blood Count 9.6 K/mm3 (4.8-10.8)
[2023-05-26 08:05] LABS: Adenovirus,PCR Not Detected (NotDetected); Bordetella Pertussis Not Detected (NotDetected); Chlamydophila Pneumoniae, PCR Not Detected (NotDetected); Coronavirus 19, PCR Not Detected (NotDetected); Coronavirus 229E Not Detected (NotDetected); Coronavirus NL63 Not Detected (NotDetected); Coronavirus OC43 Not Detected (NotDetected); Coronovirus HKU1,PCR Not Detected (NotDetected); Human Metapneumovirus Not Detected (NotDetected); Influenza A, PCR Not Detected (NotDetected); Influenza AH1, PCR Not Detected (NotDetected); Influenza AH3,PCR Not Detected (NotDetected); Influenza B, PCR Not Detected (NotDetected); Mycoplasma Pneumoniae, PCR Not Detected (NotDetected); Parainfluenza 1, PCR Not Detected (NotDetected); Parainfluenza 2, PCR Not Detected (NotDetected); Parainfluenza 3, PCR Not Detected (NotDetected); Parainfluenza 4, PCR Not Detected (NotDetected); Respiratory Syncytial Virus Not Detected (NotDetected); Rhinovirus/Enterovirus Not Detected (NotDetected)
[2023-05-26 08:10] LABS: Alanine Aminotransferase 47 U/L (12-78); Albumin Level 3.7 g/dl (3.5-5.0); Alkaline Phosphatase 143 U/L (38-126); Aspartate Amino Transferase 59 U/L (17-59); Bilirubin,Total 0.5 mg/dl (0.2-1.3); Blood Urea Nitrogen 13 mg/dl (9-20); Calcium 8.2 mg/dl (8.4-10.2); Carbon Dioxide 24 mmol/L (22.0-30.0); Chloride 102 mmol/L (98-107); Creatinine Clearance Estimated 114 mL/min (50-200); Estimated Glomerular Filt Rate 93 ml/min (>60); GFR (African American) 112 ML/MIN (>60); Globulin 3.7 g/dL (1.3-3.2); Glucose 112 mg/dl (74-100); Sodium 135 mmol/L (136-145); Total Protein,Serum 7.4 g/dl (6.3-8.2)
[2023-05-26 08:11] LABS: Lactic Acid 0.9 mmol/L (0.7-2.1)
[2023-05-26 08:14] LABS: Erythrocyte Sedimentation Rate 33 mm/hr (0-15)
[2023-05-26 08:14] LABS: Strep Scrn Group A (Rapid) Negative (Negative)
[2023-05-26 08:16] LABS: C-Reactive Protein 106.2 mg/L (0-4)
--- NOTE | 2023-05-26 09:40 | PC.NURSE ---
[facility] transfer to [facility].
[2023-05-26 09:45] LABS: NT Pro Brain Natriuretic Pep. 427 pg/mL (0-125)
--- NOTE | 2023-05-26 10:00 | PC.NURSE ---
Dr Gurrola speaking to [facility]
--- NOTE | 2023-05-26 10:19 | PC.NURSE ---
[facility] called with bed assignment, [facility], [phone]
[2023-05-26 10:21] LABS: Troponin I < 0.01 ng/ml (0.00-0.034)
[2023-05-26 10:33] LABS: Influenza AH1, 2009 Detected (NotDetected)
--- NOTE | 2023-05-26 10:55 | PC.NURSE ---
[facility] is on transfer to [place] , called [facility] they declined.
--- NOTE | 2023-05-26 12:14 | PC.NURSE ---
Called [facility] for transport , they are to get back with us.
--- NOTE | 2023-05-26 12:39 | PC.NURSE ---
Spoke with Anastacia at [facility] for possible transportation. She advised they did not have anyone available at this time, but would call back when they have someone available.
[2023-05-26 12:51] LABS: Microscopic, Urine URINE MICROSCOPIC (MICROSCOPIC)
[2023-05-26 13:00] LABS: Appearance,Urine CLEAR (Clear); Bilirubin,Urine Negative (Negative); Blood, Urine Negative (Negative); Color,Urine YELLOW (Yellow); Glucose,Urine (UA) Negative (Negative); Ketones,Urine Negative (Negative); Leukocyte Esterase,Urine Negative (Negative); Nitrate,Urine Negative (Negative); PH,Urine 6.5 (5.0-8.5); Protein,Urine Negative (Negative)
--- NOTE | 2023-05-26 13:21 | PC.NURSE ---
Pt advised he felt like he had a fever. Pt temperature checked 98.0 oral.
[2023-05-26 13:44] LABS: Bacteria,Urine Trace /lpf; Squamous Epithelial Cell,Urine Occasional #/hpf (0-5); WBC,Urine Occasional #/hpf (0-3)
== END 2023-05-26 13:59 | disposition other institution (70) ==
PROVIDERS: Emergency Provider Student in an Organized Health Care Education/Training Program; PCP Family Medicine
DX: I26.99 Other pulmonary embolism without acute cor pulmonale (principal); R09.02 Hypoxemia; J10.1 Influenza due to other identified influenza virus with other respiratory manifestations; R00.0 Tachycardia, unspecified; R50.9 Fever, unspecified; R11.2 Nausea with vomiting, unspecified; R51.9 Headache, unspecified; R53.1 Weakness; R05.9 Cough, unspecified; R07.0 Pain in throat; K21.9 Gastro-esophageal reflux disease without esophagitis; Z79.01 Long term (current) use of anticoagulants; Z89.511 Acquired absence of right leg below knee
CPT/HCPCS: 36415; 71275; 73706; 80053; 81001; 83605; 83880; 84484; 85025; 85651; 86140; 87040; 87430; 87581; 87632; 87635; 87798; 96361; 96374; 96375; 99291; J2405; Q9967

== ENCOUNTER 2023-05-29 08:43 | Outpatient (CLI) | payer BC, SELFPAY ==
[2023-05-29 08:50] VITALS: BMI 41.1
[2023-05-29 09:06] LABS: Basophils # 0.1 K/mm3 (0-0.2); Basophils % 0.5 % (0.1-2.0); Eosinophils # 0.2 K/mm3 (0.0-0.4); Eosinophils % 1.5 % (0.1-12.0); Hematocrit 40.9 % (42.0-52.0); Hemoglobin 13.5 g/dL (14.1-18.0); Lymphocytes # 1.9 K/mm3 (0.7-4.5); Lymphocytes % 18.1 % (10-50); Mean Corpuscular Hemoglobin 26.8 pg (27.0-31.2); Mean Corpuscular Volume 81.2 fl (80-94); Mean Platelet Volume 7.8 fl (7.4-10.4); Monocytes # 0.4 K/mm3 (0.1-1.0); Monocytes % 3.5 % (1.7-9.3); Neutrophils # 8.1 K/mm3 (1.8-7.8); Neutrophils % 76.4 % (37.0-80.0); Platelet Count 354 K/mm3 (142-424); Red Blood Count 5.04 M/mm3 (4.60-6.20); Red Cell Distribution Width 14.6 % (11.5-17.5); White Blood Count 10.6 K/mm3 (4.8-10.8)
[2023-05-29 09:14] LABS: Alanine Aminotransferase 48 U/L (12-78); Albumin Level 3.6 g/dl (3.5-5.0); Alkaline Phosphatase 72 U/L (38-126); Anion Gap 13.5 mEq/L (5-15); Aspartate Amino Transferase 48 U/L (17-59); Bilirubin,Total 0.2 mg/dl (0.2-1.3); Blood Urea Nitrogen 22 mg/dl (9-20); Calcium 8.3 mg/dl (8.4-10.2); Carbon Dioxide 22 mmol/L (22.0-30.0); Chloride 107 mmol/L (98-107); Creatine Kinase 92 U/L (55-170); Creatinine Clearance Estimated 128 mL/min (50-200); Estimated Glomerular Filt Rate 106 ml/min (>60); GFR (African American) 128 ML/MIN (>60); Globulin 3.6 g/dL (1.3-3.2); Glucose 121 mg/dl (74-100); Potassium 3.5 mmoL/L (3.5-5.1); Sodium 139 mmol/L (136-145); Total Protein,Serum 7.2 g/dl (6.3-8.2)
[2023-05-29 09:19] LABS: C-Reactive Protein 29.9 mg/L (0-4)
[2023-05-29 09:35] LABS: Erythrocyte Sedimentation Rate 23 mm/hr (0-15)
== END 2023-05-29 09:30 | disposition home or self-care (01) ==
LOC: INF 08:44
PROVIDERS: Internal Medicine Infectious Disease; PCP Family Medicine; Visit Provider Physician Assistant Surgical
DX: Z45.2 Encounter for adjustment and management of vascular access device (principal); M86.18 Other acute osteomyelitis, other site
CPT/HCPCS: 36592; 80053; 82550; 85025; 85651; 86140; 96523

== ENCOUNTER 2023-06-05 09:24 | Outpatient (CLI) | payer BC, SELFPAY | END 2023-06-05 09:50 | disposition home or self-care (01) | LOC: INF 09:24 | PROVIDERS: PCP Family Medicine; Visit Provider Internal Medicine Infectious Disease | DX: M86.18 Other acute osteomyelitis, other site (principal); Z45.2 Encounter for adjustment and management of vascular access device | CPT/HCPCS: 96523 ==

== ENCOUNTER 2023-06-07 11:17 | Outpatient (CLI) | payer BC, SELFPAY ==
[2023-06-07 11:22] VITALS: BMI 41.1
[2023-06-07 11:49] LABS: Basophils % 0.3 % (0.1-2.0); Eosinophils # 0.2 K/mm3 (0.0-0.4); Eosinophils % 2.3 % (0.1-12.0); Hematocrit 41.7 % (42.0-52.0); Hemoglobin 13.8 g/dL (14.1-18.0); Lymphocytes # 1.8 K/mm3 (0.7-4.5); Lymphocytes % 28.4 % (10-50); Mean Corpuscular HGB Conc 33.2 g/dL (31.8-35.4); Mean Corpuscular Hemoglobin 26.8 pg (27.0-31.2); Mean Corpuscular Volume 80.8 fl (80-94); Monocytes # 0.5 K/mm3 (0.1-1.0); Monocytes % 7.2 % (1.7-9.3); Neutrophils % 61.8 % (37.0-80.0); Platelet Count 359 K/mm3 (142-424); Red Blood Count 5.17 M/mm3 (4.60-6.20); Red Cell Distribution Width 14.9 % (11.5-17.5); White Blood Count 6.4 K/mm3 (4.8-10.8)
[2023-06-07 11:56] LABS: Chloride 106 mmol/L (98-107); Sodium 138 mmol/L (136-145)
[2023-06-07 11:57] LABS: Potassium 3.7 mmoL/L (3.5-5.1)
[2023-06-07 11:59] LABS: Alanine Aminotransferase 50 U/L (12-78); Albumin/Globulin Ratio 1.1 (1.1-1.8); Alkaline Phosphatase 82 U/L (38-126); Anion Gap 8.7 mEq/L (5-15); Aspartate Amino Transferase 44 U/L (17-59); Bilirubin,Total 0.6 mg/dl (0.2-1.3); Blood Urea Nitrogen 16 mg/dl (9-20); Calcium 8.4 mg/dl (8.4-10.2); Carbon Dioxide 27 mmol/L (22.0-30.0); Creatine Kinase 83 U/L (55-170); Creatinine Clearance Estimated 128 mL/min (50-200); Estimated Glomerular Filt Rate 106 ml/min (>60); GFR (African American) 128 ML/MIN (>60); Globulin 3.5 g/dL (1.3-3.2); Glucose 116 mg/dl (74-100); Total Protein,Serum 7.5 g/dl (6.3-8.2)
[2023-06-07 12:05] LABS: C-Reactive Protein 9.8 mg/L (0-4)
[2023-06-07 12:19] LABS: Erythrocyte Sedimentation Rate 20 mm/hr (0-15)
== END 2023-06-07 11:31 | disposition home or self-care (01) ==
LOC: INF 11:19
PROVIDERS: Internal Medicine Infectious Disease; PCP Family Medicine; Visit Provider Physician Assistant Surgical
DX: M86.18 Other acute osteomyelitis, other site (principal); B95.62 Methicillin resistant Staphylococcus aureus infection as the cause of diseases classified elsewhere
CPT/HCPCS: 36592; 80053; 82550; 85025; 85651; 86140

== ENCOUNTER 2023-06-12 08:36 | Outpatient (CLI) | payer BC, SELFPAY ==
[2023-06-12 10:03] VITALS: BMI 41.1
[2023-06-12 10:15] LABS: Basophils % 0.4 % (0.1-2.0); Eosinophils # 0.2 K/mm3 (0.0-0.4); Eosinophils % 2.9 % (0.1-12.0); Hematocrit 42.2 % (42.0-52.0); Hemoglobin 14.3 g/dL (14.1-18.0); Lymphocytes # 1.7 K/mm3 (0.7-4.5); Lymphocytes % 24.1 % (10-50); Mean Corpuscular HGB Conc 33.8 g/dL (31.8-35.4); Mean Corpuscular Volume 79.9 fl (80-94); Mean Platelet Volume 7.4 fl (7.4-10.4); Monocytes # 0.5 K/mm3 (0.1-1.0); Monocytes % 7.2 % (1.7-9.3); Neutrophils # 4.5 K/mm3 (1.8-7.8); Neutrophils % 65.3 % (37.0-80.0); Platelet Count 256 K/mm3 (142-424); Red Blood Count 5.29 M/mm3 (4.60-6.20)
[2023-06-12 10:24] LABS: Chloride 106 mmol/L (98-107); Potassium 3.9 mmoL/L (3.5-5.1); Sodium 138 mmol/L (136-145)
[2023-06-12 10:26] LABS: Blood Urea Nitrogen 18 mg/dl (9-20); Creatinine Clearance Estimated 114 mL/min (50-200); Estimated Glomerular Filt Rate 93 ml/min (>60); GFR (African American) 112 ML/MIN (>60)
[2023-06-12 10:27] LABS: Alanine Aminotransferase 48 U/L (12-78); Albumin Level 4.1 g/dl (3.5-5.0); Albumin/Globulin Ratio 1.1 (1.1-1.8); Alkaline Phosphatase 89 U/L (38-126); Anion Gap 7.9 mEq/L (5-15); Aspartate Amino Transferase 43 U/L (17-59); Bilirubin,Total 0.6 mg/dl (0.2-1.3); Calcium 8.6 mg/dl (8.4-10.2); Carbon Dioxide 28 mmol/L (22.0-30.0); Creatine Kinase 93 U/L (55-170); Globulin 3.7 g/dL (1.3-3.2); Glucose 97 mg/dl (74-100); Total Protein,Serum 7.8 g/dl (6.3-8.2)
[2023-06-12 10:33] LABS: C-Reactive Protein 10.5 mg/L (0-4)
[2023-06-12 10:41] LABS: Erythrocyte Sedimentation Rate 18 mm/hr (0-15)
== END 2023-06-12 10:25 | disposition home or self-care (01) ==
LOC: INF 08:37
PROVIDERS: PCP Family Medicine; Visit Provider Internal Medicine Infectious Disease
DX: Z45.2 Encounter for adjustment and management of vascular access device (principal); B95.62 Methicillin resistant Staphylococcus aureus infection as the cause of diseases classified elsewhere
CPT/HCPCS: 36592; 80053; 82550; 85025; 85651; 86140; 96523

== ENCOUNTER 2023-06-19 08:39 | Outpatient (CLI) | payer BC, SELFPAY ==
[2023-06-19 08:46] VITALS: BMI 41.1
[2023-06-19 09:09] LABS: Basophils % 0.5 % (0.1-2.0); Eosinophils # 0.2 K/mm3 (0.0-0.4); Eosinophils % 3.5 % (0.1-12.0); Hematocrit 42.2 % (42.0-52.0); Hemoglobin 14.2 g/dL (14.1-18.0); Lymphocytes # 1.9 K/mm3 (0.7-4.5); Lymphocytes % 30.1 % (10-50); Mean Corpuscular HGB Conc 33.8 g/dL (31.8-35.4); Mean Corpuscular Hemoglobin 27.1 pg (27.0-31.2); Mean Corpuscular Volume 80.2 fl (80-94); Mean Platelet Volume 8.4 fl (7.4-10.4); Monocytes # 0.5 K/mm3 (0.1-1.0); Monocytes % 7.7 % (1.7-9.3); Neutrophils # 3.8 K/mm3 (1.8-7.8); Neutrophils % 58.3 % (37.0-80.0); Platelet Count 223 K/mm3 (142-424); Red Blood Count 5.26 M/mm3 (4.60-6.20); Red Cell Distribution Width 15.2 % (11.5-17.5); White Blood Count 6.4 K/mm3 (4.8-10.8)
[2023-06-19 09:25] LABS: Chloride 106 mmol/L (98-107); Sodium 138 mmol/L (136-145)
[2023-06-19 09:27] LABS: Blood Urea Nitrogen 19 mg/dl (9-20); Creatinine Clearance Estimated 114 mL/min (50-200); Estimated Glomerular Filt Rate 93 ml/min (>60); GFR (African American) 112 ML/MIN (>60)
[2023-06-19 09:28] LABS: Alanine Aminotransferase 44 U/L (12-78); Albumin/Globulin Ratio 1.2 (1.1-1.8); Alkaline Phosphatase 78 U/L (38-126); Aspartate Amino Transferase 41 U/L (17-59); Bilirubin,Total 0.6 mg/dl (0.2-1.3); Calcium 8.2 mg/dl (8.4-10.2); Carbon Dioxide 28 mmol/L (22.0-30.0); Globulin 3.4 g/dL (1.3-3.2); Glucose 105 mg/dl (74-100); Total Protein,Serum 7.4 g/dl (6.3-8.2)
[2023-06-19 09:34] LABS: C-Reactive Protein 10.2 mg/L (0-4)
[2023-06-19 09:38] LABS: Creatine Kinase 121 U/L (55-170)
[2023-06-19 09:39] LABS: Erythrocyte Sedimentation Rate 16 mm/hr (0-15)
== END 2023-06-19 09:10 | disposition home or self-care (01) ==
LOC: INF 08:39
PROVIDERS: PCP Family Medicine; Visit Provider Internal Medicine Infectious Disease
DX: M86.18 Other acute osteomyelitis, other site (principal); Z45.2 Encounter for adjustment and management of vascular access device; B95.62 Methicillin resistant Staphylococcus aureus infection as the cause of diseases classified elsewhere
CPT/HCPCS: 36592; 80053; 82550; 85025; 85651; 86140

== ENCOUNTER 2023-06-26 09:16 | Outpatient (CLI) | payer BC, SELFPAY ==
[2023-06-26 09:31] VITALS: BMI 41.1
[2023-06-26 09:49] LABS: Chloride 106 mmol/L (98-107); Potassium 3.8 mmoL/L (3.5-5.1); Sodium 139 mmol/L (136-145)
[2023-06-26 09:52] LABS: Alanine Aminotransferase 41 U/L (12-78); Albumin Level 4.1 g/dl (3.5-5.0); Albumin/Globulin Ratio 1.2 (1.1-1.8); Alkaline Phosphatase 75 U/L (38-126); Anion Gap 11.8 mEq/L (5-15); Aspartate Amino Transferase 42 U/L (17-59); Basophils % 0.4 % (0.1-2.0); Bilirubin,Total 0.5 mg/dl (0.2-1.3); Blood Urea Nitrogen 18 mg/dl (9-20); Calcium 8.3 mg/dl (8.4-10.2); Carbon Dioxide 25 mmol/L (22.0-30.0); Creatine Kinase 142 U/L (55-170); Creatinine Clearance Estimated 127 mL/min (50-200); Eosinophils # 0.4 K/mm3 (0.0-0.4); Eosinophils % 6.4 % (0.1-12.0); Estimated Glomerular Filt Rate 106 ml/min (>60); GFR (African American) 128 ML/MIN (>60); Globulin 3.5 g/dL (1.3-3.2); Glucose 100 mg/dl (74-100); Hematocrit 42.8 % (42.0-52.0); Hemoglobin 14.4 g/dL (14.1-18.0); Lymphocytes # 1.9 K/mm3 (0.7-4.5); Lymphocytes % 32.8 % (10-50); Mean Corpuscular HGB Conc 33.7 g/dL (31.8-35.4); Mean Corpuscular Volume 80.3 fl (80-94); Mean Platelet Volume 6.8 fl (7.4-10.4); Monocytes # 0.4 K/mm3 (0.1-1.0); Monocytes % 7.3 % (1.7-9.3); Neutrophils # 3.1 K/mm3 (1.8-7.8); Neutrophils % 53.1 % (37.0-80.0); Platelet Count 267 K/mm3 (142-424); Red Blood Count 5.33 M/mm3 (4.60-6.20); Red Cell Distribution Width 14.5 % (11.5-17.5); Total Protein,Serum 7.6 g/dl (6.3-8.2); White Blood Count 5.8 K/mm3 (4.8-10.8)
[2023-06-26 11:31] LABS: Erythrocyte Sedimentation Rate 14 mm/hr (0-15)
== END 2023-06-26 09:28 | disposition home or self-care (01) ==
LOC: INF 09:17
PROVIDERS: PCP Family Medicine; Visit Provider Orthopaedic Surgery
DX: M86.18 Other acute osteomyelitis, other site (principal); Z45.2 Encounter for adjustment and management of vascular access device
CPT/HCPCS: 36592; 80053; 82550; 85025; 85651; 86140

== ENCOUNTER 2023-09-06 16:09 | Emergency (ER) | payer BC, MEDICAID, SELFPAY ==
[2023-09-06 16:12] VITALS: BP 140/90; PULSE 94; RESP 18; TEMP 36.7; O2SAT 95; BMI 42.5
--- NOTE | 2023-09-06 16:42 | ED_ITS ---
Discharge Plan Disposition Patient Disposition: Home, Self-Care Condition: Good Prescriptions Prescriptions: New fluticasone propionate [Flonase Allergy Relief] 50 mcg/actuation spray,suspension 2 spray intranasal DAILY Qty: 16 0RF Rx Instructions: administer into each nostril daily No Action Eliquis 5 mg tablet 5 mg PO DAILY Referrals Follow up/Referrals: Macario Burkett MD [Primary Care Provider] - See instructions Activity Restrictions/Add. Instructions Additional Instructions/Restrictions: Over the counter Coricidin HBP may help with nasal congestion and cough may sure to speak with pharmacy to assure no interaction with your medications Use flonase daily as prescribed to help open Eustachian tubes and help with pressure in your ears Follow up with your Family Doctor if *Monitor Temp, Over the counter Motrin or Tylenol as directed/as needed Tylenol every 4 hours and Motrin every 6 hours (as long as your family doctor has told you that you can take it) for fever or pain. and straight to ER if unable to lower temp less than 101.0 after medication given *Warm salt water gargles may help to soothe the throat *Throat Lozenges? *Warm fluids like tea with honey may help to soothe the throat? *Sleep elevated *Humidifier/Vaporizer *Flonase 2 sprays in each nostril daily but be aware that it may take 2-3 days before you notice improvement *Your throat swab was sent for culture. Those results are typically sent to your primary care. Be sure to follow up in 2-3 days with your family doctor/primary care physician if no improvement so they can review those result and treat if necessary. If you don?t have a primary care doctor, I recommend you get one but in the mean time, you will have to return to a walk in clinic Follow up IMMEDIATELY for new or worsening symptoms or no Noticeable improvement over the next 48-72 hours. 911 for difficulty breathing or swallowing You were tested for today for Upper Respiratory Panel with COVID19 your test result should be back in the next 24hours, you may check your results on the [facility] Portal for your results if your COVID test is positive you must Quarantine for 5 days Clinical Impressions Clinical Impression: Viral syndrome Stand Alone Forms Stand Alone Forms: Work/School Release Instructions Patient Instructions: Sore Throat, DI for Fever (Symptom) -- Adult, DI for Nasal Congestion Discharge ED Provider: Zoë Pedromo [facility] HPI General Stated complaint: exposed to flu, strep-fever, juan, sore throat Mode of Arrival: Ambulatory Source of Information: Patient Limitations: No Limitations Time Seen by Provider: 09/06/23 16:42 Description of Symptoms (Recalled from Triage Doc. by RN): Pt's symptoms are sore throat, fever, and sinus pressure. HEENT Symptoms (Recalled from RN notes): Yes Resp Symptoms (Recalled from RN notes): No Skin Symptoms (Recalled from RN notes): No MS Symptoms (Recalled from RN notes): No Functional Status (Recalled from RN notes): n/a History of Present Illness Provider Complaint: Patient states that he has been exposed to flu and strep States for the last couple of days he has been feeling achy, sinus congestion and pressure, pressure in his ears, sore throat and low grade fever but he runs fever with everything so today when he wasnt feeling any better he came in States feel isha like it did when he had COVID before Related Data Home Medications Medication Instructions Recorded Confirmed apixaban 5 mg tablet (Eliquis) 5 mg PO DAILY 09/06/23 09/06/23 Previous Rx's Medication Instructions Recorded fluticasone propionate 50 2 spray intranasal DAILY #16 grams 09/06/23 mcg/actuation nasal spray,suspension (Flonase Allergy Relief) Allergies Allergy/AdvReac Type Severity Reaction Status Date / Time Latex, Natural Rubber Allergy Mild ocoper skin Verified 09/06/23 16:34 cephalexin [From Keflex] AdvReac Mild Vomiting Verified 09/06/23 16:34 Worker's Comp Is this a Worker's Comp case?: No [facility] Disclaimer: The information contained in this section may have been updated after the patient was seen, as this information can be updated by other users. 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 Surgical History History of foot surgery History of incision and drainage Multiple procedures on right calcaneous Hx of surgical amputation of finger 7 surgeries to finger/partial amputation Previous back surgery Status post tendon repair left ankle Family History Other Hypertension Social History Smoking Status: Unknown if ever smoked alcohol intake: current substance use type: denies use current occupational status: employed Travel in the last 8 weeks: None household members: spouse and children housing: house lives independently: No education level: high school caffeine: Yes special davin needs: No agree to transfusion: No do you feel safe at home: Yes victim of physical abuse: No victim of emotional abuse: No victim of sexual abuse: No would you like helpful sources: No ROS Obtained: Yes All systems reviewed & no additional complaints except as documented and Yes Systems reviewed as appropriate & no additional complaints except as documented Constitutional Constitutional: Reports system reviewed and no additional complaints, except as documented, Reports as per HPI, Reports body ache, Reports chills, Reports fatigue and Reports fever(s) ENT Ears, Nose, Mouth, and Throat: Reports system reviewed and no additional complaints, except as documented, Reports as per HPI, Reports otalgia (pressure/fluid), Reports nasal congestion, Reports nasal discharge and Reports sore throat Cardiovascular Cardiovascular: Reports system reviewed and no additional complaints, except as documented and Reports as per HPI Respiratory Respiratory: Reports system reviewed and no additional complaints, except as documented, Reports as per HPI and Denies shortness of breath Gastrointestinal Gastrointestingal: Reports system reviewed and no additional complaints, except as documented and as per HPI Endocrine Endocrine: Reports fatigue Physical Exam General General appearance: alert and in no apparent distress ENT ENT exam: Present mucous membranes moist Expanded ENT Exam TM/Canal exam: Bilateral TM: bulging (clear mild redness in left) Nose exam: Present sinus tenderness (started 2 days ago) Throat exam: Present tonsillar erythema Respiratory Respiratory exam: Present normal lung sounds bilaterally; Absent respiratory distress or wheezes Cardiovascular Cardiovascular exam: Present regular rate, normal rhythm and normal heart sounds Abdominal Exam Abdominal exam: Present soft and normal bowel sounds; Absent distention or tenderness Neurological Exam Neurological exam: Present alert, oriented X3 and normal gait Medical Decision Making Aries Inquiry Pt receiving controlled substance: No Aries was queried for this patient: No Vital Signs: 09/06/23 16:12 Temperature 98.0 F Temperature Source Oral Pulse Rate [Right Radial] 94 H Respiratory Rate 18 Blood Pressure [Right Arm] 140/90 Blood Pressure Mean [Right Arm] 106 Blood Pressure Source [Right Arm] Automatic Cuff Blood Pressure Position [Right Arm] Sitting 02 Sat by Pulse Oximetry 95 Oxygen Delivery Method Room Air Lab Data Lab results reviewed: Yes I reviewed the patient's lab results.
[2023-09-06 16:46] LABS: UTC Influenza A Antigen Negative (Negative); UTC Strep Screen (Rapid) Negative (Negative)
[2023-09-06 16:47] LABS: UTC Influenza B Antigen Negative (Negative)
[2023-09-06 17:17] VITALS: BP 140/90; PULSE 94; RESP 18; TEMP 36.7; O2SAT 95
[2023-09-06 17:20] LABS: Adenovirus,PCR Not Detected (NotDetected); Coronavirus 19, PCR Not Detected (NotDetected); Coronavirus 229E Not Detected (NotDetected); Coronavirus NL63 Not Detected (NotDetected); Coronavirus OC43 Not Detected (NotDetected); Coronovirus HKU1,PCR Not Detected (NotDetected); Human Metapneumovirus Not Detected (NotDetected); Influenza A, PCR Not Detected (NotDetected); Influenza AH1, 2009 Not Detected (NotDetected); Influenza AH1, PCR Not Detected (NotDetected); Influenza AH3,PCR Not Detected (NotDetected); Influenza B, PCR Not Detected (NotDetected); Parainfluenza 1, PCR Not Detected (NotDetected); Parainfluenza 2, PCR Not Detected (NotDetected); Parainfluenza 3, PCR Not Detected (NotDetected); Parainfluenza 4, PCR Not Detected (NotDetected); Respiratory Syncytial Virus Not Detected (NotDetected); Rhinovirus/Enterovirus Not Detected (NotDetected)
== END 2023-09-06 17:17 | disposition home or self-care (01) ==
PROVIDERS: Emergency Provider Nurse Practitioner; PCP Family Medicine
DX: R07.0 Pain in throat (principal); R50.9 Fever, unspecified; R09.81 Nasal congestion; H92.03 Otalgia, bilateral; R53.83 Other fatigue; B34.9 Viral infection, unspecified; K21.9 Gastro-esophageal reflux disease without esophagitis
CPT/HCPCS: 87632; 87635; 87804; 87880; 99212; 99214; G0463

== ENCOUNTER 2023-10-30 09:34 | Outpatient (CLI) | payer MEDICAID, SELFPAY ==
[2023-10-31 10:34] LABS: Total Protein,Urine Random < 5.0 mg/dL (0.0-12.0)
[2023-11-02 10:42] LABS: Neisseria gonorrhoeae, NAA Negative (Negative)
== END 2023-10-30 23:59 | disposition home or self-care (01) ==
LOC: LAB.DROPOF 10-31 09:34
PROVIDERS: PCP Nurse Practitioner Family; Visit Provider Nurse Practitioner Family
DX: I10 Essential (primary) hypertension (principal); R32 Unspecified urinary incontinence; Z11.3 Encounter for screening for infections with a predominantly sexual mode of transmission; B96.29 Other Escherichia coli [E. coli] as the cause of diseases classified elsewhere; N39.0 Urinary tract infection, site not specified
CPT/HCPCS: 84156; 87086; 87491; 87591

== ENCOUNTER 2023-11-01 10:14 | Outpatient (CLI) | payer MEDICAID, SELFPAY ==
[2023-11-01 11:13] LABS: Basophils % 0.7 % (0.1-2.0); Eosinophils # 0.2 K/mm3 (0.0-0.4); Hematocrit 47.4 % (42.0-52.0); Hemoglobin 15.8 g/dL (14.1-18.0); Lymphocytes # 1.9 K/mm3 (0.7-4.5); Lymphocytes % 31.8 % (10-50); Mean Corpuscular HGB Conc 33.4 g/dL (31.8-35.4); Mean Corpuscular Hemoglobin 27.1 pg (27.0-31.2); Mean Corpuscular Volume 81.1 fl (80-94); Mean Platelet Volume 7.7 fl (7.4-10.4); Monocytes # 0.4 K/mm3 (0.1-1.0); Monocytes % 6.8 % (1.7-9.3); Neutrophils # 3.4 K/mm3 (1.8-7.8); Neutrophils % 57.6 % (37.0-80.0); Platelet Count 275 K/mm3 (142-424); Red Blood Count 5.84 M/mm3 (4.60-6.20); Red Cell Distribution Width 15.3 % (11.5-17.5); White Blood Count 5.9 K/mm3 (4.8-10.8)
[2023-11-01 11:41] LABS: Alanine Aminotransferase 39 U/L (12-78); Albumin Level 4.2 g/dl (3.5-5.0); Albumin/Globulin Ratio 1.4 (1.1-1.8); Alkaline Phosphatase 79 U/L (38-126); Aspartate Amino Transferase 46 U/L (17-59); Bilirubin,Total 0.8 mg/dl (0.2-1.3); Blood Urea Nitrogen 21 mg/dl (9-20); Calcium 9.1 mg/dl (8.4-10.2); Carbon Dioxide 27 mmol/L (22.0-30.0); Chloride 107 mmol/L (98-107); Chol/HDL Ratio 7.2 (1-3.5); Cholesterol 260 mg/dl (140-200); Estimated Glomerular Filt Rate 106 ml/min (>60); GFR (African American) 128 ML/MIN (>60); Glucose 109 mg/dl (74-100); HDL Cholesterol 36 mg/dl (40-60); Sodium 140 mmol/L (136-145); Total Protein,Serum 7.2 g/dl (6.3-8.2); Triglycerides 129 mg/dl (30-150); VLDL Cholesterol 26 mg/dL (0-40)
[2023-11-01 11:52] LABS: C-Reactive Protein 10.9 mg/L (0-4); Direct LDL Cholesterol 149.97 mg/dL (100-129)
[2023-11-01 11:59] LABS: Free T4 (Free Thyroxine) 1.04 ng/dl (0.78-2.19)
[2023-11-01 12:00] LABS: 25-OH Vitamin D, Total 32.6 ng/mL (30-100)
[2023-11-01 12:48] LABS: Iron 106 ug/dL (49-181)
[2023-11-01 12:53] LABS: Hemoglobin A1C 5.8 % (4.0-6.0)
[2023-11-01 12:56] LABS: Erythrocyte Sedimentation Rate 22 mm/hr (0-15)
[2023-11-01 12:57] LABS: Total Iron Binding Capacity 357 ug/dL (261-462)
[2023-11-01 13:20] LABS: Thyroid Stimulating Hormone 3.32 uIU/mL (0.465-4.68)
[2023-11-01 13:24] LABS: Ferritin 13.9 ng/ml (17.9-464)
[2023-11-01 13:38] LABS: Prostate Specific Ag, Diagnost 1.33 ng/ml (0.0-4.0); Vitamin B12 634 pg/mL (239-931)
[2023-11-02 10:42] LABS: HBsAg Screen Negative (Negative); HCV Ab Non Reactive (Non Reactive); HIV Screen 4th Generation wRfx Non Reactive (Non Reactive); Hep A Ab, IGM Negative (Negative); Hep B Core Ab, IgM Negative (Negative); Testosterone,Total 403 ng/dL (264-916)
[2023-11-02 12:12] LABS: Rapid Plasma Reagin Ab Titer Non Reactive titer (NonRea<1:1)
== END 2023-11-01 23:59 | disposition home or self-care (01) ==
LOC: LAB 10:15
PROVIDERS: PCP Nurse Practitioner Family; Visit Provider Nurse Practitioner Family
DX: R53.83 Other fatigue (principal); R60.0 Localized edema; Z11.3 Encounter for screening for infections with a predominantly sexual mode of transmission; Z11.4 Encounter for screening for human immunodeficiency virus [HIV]; I10 Essential (primary) hypertension; E66.9 Obesity, unspecified; Z68.41 Body mass index [BMI] 40.0-44.9, adult; R32 Unspecified urinary incontinence; N32.81 Overactive bladder; N52.9 Male erectile dysfunction, unspecified; D64.9 Anemia, unspecified; Z13.220 Encounter for screening for lipoid disorders; N50.9 Disorder of male genital organs, unspecified; Z79.899 Other long term (current) drug therapy
CPT/HCPCS: 36415; 80053; 80061; 80074; 82306; 82607; 82728; 83036; 83540; 83550; 84153; 84403; 84439; 84443; 85025; 85651; 86140; 86593; 86703; G0432

== ENCOUNTER 2023-12-13 10:01 | Outpatient (CLI) | payer MEDICAID, SELFPAY ==
--- NOTE | 2023-12-13 10:02 | US_ITS ---
FINAL REPORT TECHNIQUE: Ultrasound images of the testicles were obtained bilaterally. Color Doppler images were obtained. CLINICAL HISTORY: lt testicle pain x 1 month COMPARISON: None FINDINGS: The left testicle measures 3.8 cm. A left varicocele is noted. The right testicle measures 4.5 cm and is within normal limits. IMPRESSION: Left varicocele. Reviewed, Interpreted and Dictated by Won Carey III, MD Transcribed by Lulu Patrick Authenticated and [facility]
== END 2023-12-13 23:59 | disposition home or self-care (01) ==
LOC: RAD 10:02
PROVIDERS: PCP Nurse Practitioner Family; Visit Provider Nurse Practitioner Family
DX: N50.812 Left testicular pain (principal); N50.89 Other specified disorders of the male genital organs; I86.1 Scrotal varices
CPT/HCPCS: 76870

== ENCOUNTER 2024-01-02 14:41 | Emergency (ER) | payer MEDICAID, SELFPAY ==
[2024-01-02] VITALS (7 sets, daily range): BP systolic 112–135; BP diastolic 68–88; PULSE 62–83; RESP 16–18; TEMP 36.7–36.9; O2SAT 93–97; BMI 44.0
[2024-01-02 15:15] LABS: Microscopic, Urine URINE MICROSCOPIC (MICROSCOPIC)
[2024-01-02 15:17] LABS: Basophils % 0.6 % (0.1-2.0); Eosinophils # 0.3 K/mm3 (0.0-0.4); Eosinophils % 4.3 % (0.1-12.0); Hematocrit 44.2 % (42.0-52.0); Hemoglobin 14.4 g/dL (14.1-18.0); Lymphocytes # 1.9 K/mm3 (0.7-4.5); Lymphocytes % 26.9 % (10-50); Mean Corpuscular HGB Conc 32.7 g/dL (31.8-35.4); Mean Corpuscular Hemoglobin 27.3 pg (27.0-31.2); Mean Corpuscular Volume 83.4 fl (80-94); Mean Platelet Volume 7.6 fl (7.4-10.4); Monocytes # 0.4 K/mm3 (0.1-1.0); Monocytes % 5.9 % (1.7-9.3); Neutrophils # 4.4 K/mm3 (1.8-7.8); Neutrophils % 62.3 % (37.0-80.0); Platelet Count 272 K/mm3 (142-424); Red Blood Count 5.29 M/mm3 (4.60-6.20); White Blood Count 7.1 K/mm3 (4.8-10.8)
[2024-01-02 15:32] LABS: Chloride 108 mmol/L (98-107); Sodium 140 mmol/L (136-145)
--- NOTE | 2024-01-02 15:33 | HMH.EDGENADL ---
Discharge Plan Disposition Patient Disposition: Home, Self-Care Condition: Good Prescriptions Prescriptions: No Action omega-3 acid ethyl esters 1 gram capsule 1 cap PO DAILY coQ10 (ubiquinol) [Qunol Skyler CoQ10] 100 mg capsule 100 mg PO BID Qty: 180 3RF doxycycline hyclate 100 mg capsule 100 mg PO DAILY fluticasone propionate [Flonase Allergy Relief] 50 mcg/actuation spray,suspension 2 spray intranasal DAILY PRN Rx Instructions: administer into each nostril daily hydrochlorothiazide 12.5 mg tablet 12.5 mg PO DAILY Qty: 90 3RF sertraline 50 mg tablet 50 mg PO DAILY Qty: 90 3RF ferrous sulfate 325 mg (65 mg iron) tablet 325 mg PO BID Qty: 180 3RF tadalafil [Cialis] 5 mg tablet 5 mg PO DAILY Qty: 30 2RF oxybutynin chloride 10 mg tablet extended release 24hr 10 mg PO DAILY Qty: 90 3RF tamsulosin [Flomax] 0.4 mg capsule 0.4 mg PO DAILY Qty: 30 3RF atorvastatin 40 mg tablet 40 mg PO HS Qty: 90 3RF Eliquis 5 mg tablet 5 mg PO BID Referrals Follow up/Referrals: Melanie Gardner APRN [Primary Care Provider] - See instructions Activity Restrictions/Add. Instructions Additional Instructions/Restrictions: You were evaluated in the emergency department today. At this time, your workup is reassuring with the exception of your CK being elevated, which can happen with statin cholesterol medications. Please follow-up closely with your primary care provider for further assessment of this. Make sure that you stay hydrated. Take Tylenol and ibuprofen at home as needed for pain. Return to the emergency department for new or worsening symptoms Clinical Impressions Clinical Impression: Myalgia, Rhabdomyolysis Instructions Patient Instructions: DI for Acute Pain -- Adult Discharge ED Provider: Kiki Bella General Adult HPI General Chief complaint: PAIN Stated complaint: back/hip/shoulder pain, no accident Time Seen by Provider: 01/02/24 15:04 Mode of Arrival: Ambulatory Source of Information: Patient Limitations: Physical Limitations Description of Symptoms (Recalled from ER Triage Doc. by RN): buddy flank pain radiating up his back and shoulder blades. History of Present Illness HPI narrative: This patient is a 43-year-old male with a history of hypertension, hyperlipidemia managed on statin, history of PE on Eliquis, psoriasis, obesity, anxiety and depression, GERD, and OAB presenting to the emergency department for evaluation with concern for generalized pain. He states for the last 4 days he has not been able to sleep very well and has had pain that is radiating all the way up from his hips into his upper back. He has he has a history of chronic back pain, but it does not feel like his chronic back pain. He denies any falls or injuries. He also denies any new numbness tingling. He states he thinks he might of had a low-grade subjective fever a couple nights ago. No sore throat, cough, congestion, chest pain, shortness of breath, abdominal pain, nausea, vomiting, change in bowel movements, changes in urinary habits. He does note that he has had heartburn. Related Data Home Medications Medication Instructions Recorded Confirmed doxycycline hyclate 100 mg capsule 100 mg PO DAILY 10/30/23 12/26/23 fluticasone propionate 50 2 spray intranasal DAILY PRN 10/30/23 12/26/23 mcg/actuation nasal spray,suspension (Flonase Allergy Relief) apixaban 5 mg tablet (Eliquis) 5 mg PO BID 11/27/23 12/26/23 omega-3 acid ethyl esters 1 gram 1 cap PO DAILY 12/26/23 12/26/23 capsule Previous Rx's Medication Instructions Recorded hydrochlorothiazide 12.5 mg tablet 12.5 mg PO DAILY #90 tabs 10/30/23 atorvastatin 40 mg tablet 40 mg PO HS #90 tabs 11/03/23 sertraline 50 mg tablet 50 mg PO DAILY #90 tabs 11/27/23 ferrous sulfate 325 mg (65 mg 325 mg PO BID #180 tabs 12/06/23 iron) tablet oxybutynin chloride 10 mg 10 mg PO DAILY #90 tabs 12/25/23 tablet,extended release 24 hr tadalafil 5 mg tablet (Cialis) 5 mg PO DAILY #30 tabs 12/25/23 tamsulosin 0.4 mg capsule (Flomax) 0.4 mg PO DAILY #30 caps 12/25/23 coQ10 (ubiquinol) 100 mg capsule 100 mg PO BID #180 caps 12/26/23 (Qunol Skyler CoQ10) Allergies Allergy/AdvReac Type Severity Reaction Status Date / Time Latex, Natural Rubber Allergy Mild cooper skin Verified 12/26/23 10:23 cephalexin [From Keflex] AdvReac Mild Vomiting Verified 12/26/23 10:23 [facility] Disclaimer: The information contained in this section may have been updated after the patient was seen, as this information can be updated by other users. Medical History E-coli UTI Right lower lobe pneumonia History of pulmonary embolism Testicular disorder Foot infection Surgical site infection Open wound of right heel Plantar fasciitis of right foot Callus of foot Acquired equinus deformity of both feet Acquired hallux valgus of both feet BMI 40.0-44.9, adult MRSA infection Constipation Neelima infection Acute osteomyelitis of right calcaneus Constipation Hypoxemia Postoperative seroma Pulmonary embolism Acute viral syndrome Phantom pain after amputation of lower extremity Lumbar radiculopathy Fever Itching due to drug Viral syndrome H1N1 influenza Fever History of COVID-19 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 Anemia GERD (gastroesophageal reflux disease) Psoriasis Adiel's deformity of right heel Exposure to 2019 novel coronavirus Migraine Acquired hammertoes of both feet Right Achilles tendinitis Heel spur Right Achilles bursitis Laceration of right index finger GI bleed Surgical History Status post below knee amputation of right lower extremity History of incision and drainage History of foot surgery Hx of surgical amputation of finger Previous back surgery Status post tendon repair Family History Other Hypertension Social History Smoking Status: Never smoker alcohol intake: current substance use type: denies use current occupational status: employed Travel in the last 8 weeks: None household members: spouse and children housing: house lives independently: No education level: high school caffeine: Yes special davin needs: No agree to transfusion: No do you feel safe at home: Yes victim of physical abuse: No victim of emotional abuse: No victim of sexual abuse: No would you like helpful sources: No ROS Obtained: Yes All systems reviewed & no additional complaints except as documented Physical Exam General General appearance: alert and in no apparent distress Head Head exam: atraumatic and normocephalic Eye Eye exam: Present normal appearance, PERRL and EOMI ENT ENT exam: Present normal exam, normal oropharynx, mucous membranes moist and normal external ear exam Neck Neck exam: Present normal inspection, full ROM and trachea midline; Absent tenderness Chest Chest inspection: Present normal inspection and symmetric chest wall rise; Absent tenderness Respiratory Respiratory exam: Present normal lung sounds bilaterally; Absent respiratory distress, wheezes, stridor or accessory muscle use Cardiovascular Cardiovascular exam: Present regular rate and normal rhythm Abdominal Exam Abdominal exam: Present soft; Absent distention, tenderness or guarding Extremities Exam Extremities exam: Present normal inspection, full ROM and normal capillary refill; Absent tenderness or edema Back Exam Back exam: Present normal inspection and full ROM; Absent tenderness Neurological Exam Neurological exam: Present alert, oriented X3, CN II-XII intact and normal gait; Absent motor sensory deficit Psychiatric Psychiatric exam: Present normal affect and normal mood Skin Skin exam: Present warm and dry Medical Decision Making Medical Records Medical records reviewed: Yes I reviewed the patient's medical records. Aries Inquiry Pt receiving controlled substance: No Vital Signs: 01/02/24 14:42 01/02/24 15:00 01/02/24 16:00 Temperature 98.5 F Temperature Source Oral Pulse Rate 83 73 Pulse Rate [Right] 82 Respiratory Rate 18 Blood Pressure 134/71 127/68 Blood Pressure [Right Arm] 135/85 Blood Pressure Mean 86 Blood Pressure Mean [Right Arm] 101 Blood Pressure Source Blood Pressure Position 02 Sat by Pulse Oximetry 96 95 93 L Oxygen Delivery Method Room Air Room Air 01/02/24 16:31 01/02/24 17:00 01/02/24 17:30 Temperature Temperature Source Pulse Rate 78 62 67 Pulse Rate [Right] Respiratory Rate Blood Pressure 119/88 115/68 112/70 Blood Pressure [Right Arm] Blood Pressure Mean Blood Pressure Mean [Right Arm] Blood Pressure Source Blood Pressure Position 02 Sat by Pulse Oximetry 94 L 95 96 Oxygen Delivery Method Room Air 01/02/24 18:00 Temperature 98.0 F Temperature Source Oral Pulse Rate 79 Pulse Rate [Right] Respiratory Rate 16 Blood Pressure 112/70 Blood Pressure [Right Arm] Blood Pressure Mean Blood Pressure Mean [Right Arm] Blood Pressure Source Automatic Cuff Blood Pressure Position Sitting 02 Sat by Pulse Oximetry Oxygen Delivery Method Room Air Lab Data Lab results reviewed: Yes I reviewed the patient's lab results. Lab Results 01/02/24 15:05: WBC 7.1, RBC 5.29, Hgb 14.4, Hct 44.2, MCV 83.4, MCH 27.3, MCHC 32.7, RDW 15.0, Plt Count 272, MPV 7.6, Neut % (Auto) 62.3, Lymph % (Auto) 26.9, Real % (Auto) 5.9, Eos % (Auto) 4.3, Baso % (Auto) 0.6, Neut # (Auto) 4.4, Lymph # (Auto) 1.9, Real # (Auto) 0.4, Eos # (Auto) 0.3, Baso # (Auto) 0.0, Sodium 140, Potassium 4.0, Chloride 108 H, Carbon Dioxide 26, Anion Gap 10.0, BUN 20, Creatinine 0.90, Estimated Creat Clear 113, Estimated GFR 92, Est GFR ( Amer) 111, Glucose 92, Calcium 8.6, Magnesium 1.8, Total Bilirubin 0.4, AST 41, ALT 45, Alkaline Phosphatase 86, Total Creatine Kinase 267 H, Troponin I < 0.01, Total Protein 6.9, Albumin 3.7, Globulin 3.2, Albumin/Globulin Ratio 1.2, Lipase 33, TSH 3.79, Thyroxine (T4) 7.5 01/02/24 15:10: Urine Color Yellow, Urine Appearance Clear, Urine pH 6.5, Ur Specific [employer] 1.020, Urine Protein Negative, Urine Glucose (UA) Negative, Urine Ketones Negative, Urine Blood Negative, Urine Nitrate Negative, Urine Bilirubin Negative, Urine Urobilinogen 0.2, Ur Leukocyte Esterase Negative, Urine RBC None, Urine WBC None, Ur Squamous Epith Cells Occasional, Urine Bacteria Trace 01/02/24 15:53: SARS-CoV-2 (PCR) Not detected, Influenza A Untype (PCR) Not detected, Influenza Type B (PCR) Not detected 01/02/24 15:05 01/02/24 15:05 Orders (Tests/Meds): ED MEDICATIONS Discontinued Medications Generic Name Dose Route Start Last Admin Trade Name Freq PRN Reason Stop Dose Admin Acetaminophen 1,000 mg 01/02/24 15:21 01/02/24 15:37 Acetaminophen 1,000mg/100ml Vial IV 01/02/24 15:22 1,000 mg ONCE ONE Administration Lactated Ringer's 1,000 mls @ 999 mls/hr 01/02/24 15:21 01/02/24 15:37 Lactated Ringer's 1000 Ml Bag IV 01/02/24 16:21 999 mls/hr .Q1H1M ONE Administration Ketorolac Tromethamine 15 mg 01/02/24 15:21 01/02/24 15:37 Ketorolac 30mg/Ml Vial IV 01/02/24 15:22 15 mg ONCE ONE Administration ORDERS Category Date Time Status CXR 2 view (NOT portable) [XR chest 2V] Stat Exams 01/02/24 16:07 Taken CK [Creatine Kinase] Stat Lab 01/02/24 15:05 Completed Complete Blood Count Auto Diff Stat Lab 01/02/24 15:05 Completed Comprehensive Metabolic Panel Stat Lab 01/02/24 15:05 Completed Lipase Stat Lab 01/02/24 15:05 Completed MAG [Magnesium] Stat Lab 01/02/24 15:05 Completed Rapid PCR Covid and Flu A/B Stat Lab 01/02/24 15:53 Completed T4 (Thyroxine) Stat Lab 01/02/24 15:05 Completed TSH [Thyroid Stimulating Hormone] Stat Lab 01/02/24 15:05 Completed Trop I [Troponin I] Stat Lab 01/02/24 15:05 Completed UA [Urinalysis and Microscopic] Stat Lab 01/02/24 15:10 Completed ECG Data Tracing #1: I reviewed this ECG and interpreted as documented below: Normal sinus rhythm with a ventricular rate of [address] changes concerning for ischemia. Normal axis and intervals. ECG initial impression date: 01/02/24 ECG initial impression time: 16:00 Medical Decision Narrative: In summary, this patient is a 43-year-old male presenting to the Emergency Department for evaluation of generalized bodyaches and pain as well as heartburn. Differential diagnoses considered include but are not limited to electrolyte derangements, dehydration, viral syndrome, pneumonia, ACS, rhabdomyolysis, thyroid derangements. Ruling out the most morbid conditions drove assessment. It should be noted patient's history includes hypertension, hyperlipidemia, obesity which may or may not be at goal therapy. This complicates all aspects of care by increasing patient's risk for morbidity. On exam, the patient is sitting upright in bed in no acute distress. He is ambulatory without difficulty. He is nontoxic-appearing with reassuring cardiopulmonary and abdominal exams. Vitals are reassuring on cardiac telemetry. No neurologic deficits noted. Workup included broad lab evaluation to evaluate for infectious or metabolic derangements as a cause of this as well as cardiac workup given his heartburn and generally feeling unwell. He was given a bolus of IV fluids as well as IV Toradol and acetaminophen. I independently interpreted chest x-ray prior to the radiologist read and noted no acute focal consolidation concerning for pneumonia. Please see their read for final interpretation. Labs were obtained that demonstrated mildly elevated CK with normal kidney function and no other acutely concerning abnormalities. On reassessment, patient had some improvement after administration of IV fluids, IV Toradol, and acetaminophen. I feel he may have statin induced myopathy, but I do feel we have effectively ruled out other life-threatening pathology based on reassuring lab evaluation. Cardiac workup is negative. Ultimately, I feel the patient is appropriate for discharge home with close follow-up with his primary care provider and instructions to hydrate. I advised that he talk to them about whether or not they feel this could be related to his statin. Strict return precautions were given, and the patient was discharged after all questions were answered. Critical Care Critical Care Time Critical Care Time: No
[2024-01-02 15:34] LABS: Alanine Aminotransferase 45 U/L (12-78); Aspartate Amino Transferase 41 U/L (17-59); Blood Urea Nitrogen 20 mg/dl (9-20); Creatine Kinase 267 U/L (55-170); Creatinine Clearance Estimated 113 mL/min (50-200); Estimated Glomerular Filt Rate 92 ml/min (>60); GFR (African American) 111 ML/MIN (>60); Magnesium 1.8 mg/dl (1.6-2.3)
[2024-01-02 15:34] LABS: Appearance,Urine CLEAR (Clear); Bilirubin,Urine Negative (Negative); Blood, Urine Negative (Negative); Color,Urine YELLOW (Yellow); Glucose,Urine (UA) Negative (Negative); Ketones,Urine Negative (Negative); Leukocyte Esterase,Urine Negative (Negative); Nitrate,Urine Negative (Negative); PH,Urine 6.5 (5.0-8.5); Protein,Urine Negative (Negative); Urobilinogen,Urine 0.2 EU/dl (0.2)
[2024-01-02 15:35] LABS: Alkaline Phosphatase 86 U/L (38-126); Bilirubin,Total 0.4 mg/dl (0.2-1.3); Calcium 8.6 mg/dl (8.4-10.2); Carbon Dioxide 26 mmol/L (22.0-30.0); Glucose 92 mg/dl (74-100)
[2024-01-02 15:37] LABS: Lipase 33 U/L (23-300)
[2024-01-02] MEDS: LACTATED RINGERS 1000ML 1,000 ML 999 ML IV (15:37)
[2024-01-02] MEDS: KETOROLAC 30MG/ML VIAL 15 MG IV (15:37)
[2024-01-02] MEDS: ACETAMINOPHEN 1,000MG/100ML VIAL 1000 MG IV (15:37)
[2024-01-02 15:38] LABS: Albumin Level 3.7 g/dl (3.5-5.0); Albumin/Globulin Ratio 1.2 (1.1-1.8); Globulin 3.2 g/dL (1.3-3.2); Total Protein,Serum 6.9 g/dl (6.3-8.2)
[2024-01-02 15:47] LABS: Bacteria,Urine Trace /lpf; Squamous Epithelial Cell,Urine Occasional #/hpf (0-5)
[2024-01-02 15:47] LABS: Troponin I < 0.01 ng/ml (0.00-0.034)
[2024-01-02 15:51] LABS: T4 (Thyroxine) 7.5 ug/dl (5.53-11.0)
--- NOTE | 2024-01-02 15:55 | ECG_ITS ---
APPROVED REPORT Exam: Resting ECG HR:79 bpm ECG Measurements Heart Rate 79 AXES VA 161 P 5 QRSd 93 QRS 18 QT 396 T 18 QTc 430 Conclusion SINUS RHYTHM BORDERLINE ECG INTERPRETATION BASED ON A DEFAULT AGE OF 40 YEARS Electronically signed by : CONRAD CARRERA, 01/02/2024 22:15:13
[2024-01-02 16:04] LABS: Coronavirus 19, PCR Not Detected (NotDetected); Influenza A, PCR Not Detected (NotDetected); Influenza B, PCR Not Detected (NotDetected)
[2024-01-02 16:05] LABS: Thyroid Stimulating Hormone 3.79 uIU/mL (0.465-4.68)
--- NOTE | 2024-01-02 16:07 | XR_ITS ---
FINAL REPORT TECHNIQUE: Two views CLINICAL HISTORY: upper back pain, body aches COMPARISON: 10/21/2022 FINDINGS: No acute pulmonary density is present. Mediastinal contour is normal. Heart size is stable. IMPRESSION: Stable chest exam without acute disease Reviewed, Interpreted and Dictated by Gilma Ramirez MD Transcribed by Madiha Ambrosio Authenticated and [facility]
--- NOTE | 2024-01-02 16:08 | PC.NURSE ---
Rounded on pt. No needs voiced at this time. Call light remains within reach.
--- NOTE | 2024-01-02 16:13 | PC.NURSE ---
pt to rad
--- NOTE | 2024-01-02 16:32 | PC.NURSE ---
updated on pt, no needs at this time
--- NOTE | 2024-01-02 16:38 | PC.NURSE ---
Dr. Bella at BS for pt eval
--- NOTE | 2024-01-02 17:55 | PC.NURSE ---
Dr. Bella at to update pt on results
== END 2024-01-02 18:01 | disposition home or self-care (01) ==
PROVIDERS: Emergency Provider Emergency Medicine; PCP Nurse Practitioner Family
DX: M62.82 Rhabdomyolysis (principal); I10 Essential (primary) hypertension; E78.5 Hyperlipidemia, unspecified; E66.9 Obesity, unspecified; Z68.41 Body mass index [BMI] 40.0-44.9, adult
CPT/HCPCS: 71046; 80053; 81001; 82550; 83690; 83735; 84436; 84443; 84484; 85025; 87636; 93005; 96361; 96374; 96375; 99284; J0131; J1885; J7120

== ENCOUNTER 2024-01-05 10:15 | Outpatient (CLI) | payer MEDICAID, SELFPAY ==
[2024-01-05 19:39] LABS: Alanine Aminotransferase 57 U/L (12-78); Albumin Level 4.1 g/dl (3.5-5.0); Albumin/Globulin Ratio 1.3 (1.1-1.8); Alkaline Phosphatase 95 U/L (38-126); Anion Gap 14.6 mEq/L (5-15); Aspartate Amino Transferase 48 U/L (17-59); Bilirubin,Total 0.5 mg/dl (0.2-1.3); Blood Urea Nitrogen 14 mg/dl (9-20); Calcium 8.8 mg/dl (8.4-10.2); Carbon Dioxide 23 mmol/L (22.0-30.0); Chloride 103 mmol/L (98-107); Creatine Kinase 227 U/L (55-170); Estimated Glomerular Filt Rate 82 ml/min (>60); GFR (African American) 99 ML/MIN (>60); Globulin 3.2 g/dL (1.3-3.2); Glucose 104 mg/dl (74-100); Potassium 3.6 mmoL/L (3.5-5.1); Sodium 137 mmol/L (136-145); Total Protein,Serum 7.3 g/dl (6.3-8.2)
== END 2024-01-05 23:59 | disposition home or self-care (01) ==
LOC: LAB.DROPOF 01-08 10:16
PROVIDERS: PCP Nurse Practitioner Family; Visit Provider Nurse Practitioner Family
DX: M79.10 Myalgia, unspecified site
CPT/HCPCS: 80053; 82550

== ENCOUNTER → 2024-01-22 15:26 | Outpatient (CLI) | payer MEDICAID, SELFPAY | LOC: SL 15:27 | PROVIDERS: PCP Nurse Practitioner Family; Visit Provider Nurse Practitioner Family | DX: G47.33 Obstructive sleep apnea (adult) (pediatric) (principal); G47.36 Sleep related hypoventilation in conditions classified elsewhere | CPT/HCPCS: G0399 ==

== ENCOUNTER 2024-03-22 14:10 | Outpatient (CLI) | payer MEDICAID, SELFPAY ==
--- NOTE | 2024-03-22 14:15 | CT_ITS ---
FINAL REPORT TECHNIQUE: Axial CT images were performed from the lung apices through the upper abdomen. Coronal and sagittal reformats were submitted. This study was performed with techniques to keep radiation doses as low as reasonably achievable (ALARA). Individualized dose reduction techniques using automated exposure control or adjustment of mA and/or kV according to the patient's size were employed. CLINICAL HISTORY: Lung nodule COMPARISON: CTA of the chest 05/26/2023 FINDINGS: There is no axillary adenopathy. There is no hilar or mediastinal mass or adenopathy. Heart size is normal. There is no pericardial or pleural effusion. Limited images of the upper abdomen are unremarkable. There is a 6 mm nodule in the medial right lower lobe, seen best on image #58 of series 2, stable. There are multiple other new small nodular opacities in the right lower lobe, partly solid, measuring up to 7 mm, seen best on image #52 of series 2. A right lower lobe calcified granuloma is present as well. IMPRESSION: Nodule seen on CTA of the chest is stable in appearance when compared to the prior exam. However there are multiple other new small nodular opacities in the right lower lobe as described above. Would favor inflammatory, and recommend 6-month follow-up chest CT for further evaluation. Reviewed, Interpreted and Dictated by Won Carey III, MD Transcribed by Kate Verdugo Authenticated and [facility]
== END 2024-03-22 23:59 | disposition home or self-care (01) ==
LOC: RAD 14:10
PROVIDERS: PCP Nurse Practitioner Family; Visit Provider Internal Medicine Pulmonary Disease
DX: R91.8 Other nonspecific abnormal finding of lung field (principal); R06.09 Other forms of dyspnea
CPT/HCPCS: 71250; 94060; 94618; 94726; 94729

== ENCOUNTER 2024-03-25 14:11 | Outpatient (CLI) | payer MEDICAID, SELFPAY ==
[2024-03-25 13:27] LABS: Basophils # 0.1 K/mm3 (0-0.2); Basophils % 0.6 % (0.1-2.0); Eosinophils # 0.1 K/mm3 (0.0-0.4); Eosinophils % 1.2 % (0.1-12.0); Hematocrit 49.6 % (42.0-52.0); Hemoglobin 16.2 g/dL (14.1-18.0); Lymphocytes # 1.9 K/mm3 (0.7-4.5); Lymphocytes % 22.3 % (10-50); Mean Corpuscular HGB Conc 32.7 g/dL (31.8-35.4); Mean Corpuscular Hemoglobin 27.5 pg (27.0-31.2); Mean Platelet Volume 8.3 fl (7.4-10.4); Monocytes # 0.5 K/mm3 (0.1-1.0); Monocytes % 5.8 % (1.7-9.3); Neutrophils % 70.2 % (37.0-80.0); Platelet Count 297 K/mm3 (142-424); Red Cell Distribution Width 14.8 % (11.5-17.5); White Blood Count 8.6 K/mm3 (4.8-10.8)
[2024-03-25 13:58] LABS: Albumin Level 4.3 g/dl (3.5-5.0); Chloride 109 mmol/L (98-107); Sodium 140 mmol/L (136-145)
[2024-03-25 13:59] LABS: Potassium 3.9 mmoL/L (3.5-5.1)
[2024-03-25 14:01] LABS: Alanine Aminotransferase 72 U/L (12-78); Albumin/Globulin Ratio 1.3 (1.1-1.8); Alkaline Phosphatase 94 U/L (38-126); Anion Gap 9.9 mEq/L (5-15); Aspartate Amino Transferase 61 U/L (17-59); Bilirubin,Total 0.8 mg/dl (0.2-1.3); Blood Urea Nitrogen 21 mg/dl (9-20); Carbon Dioxide 25 mmol/L (22.0-30.0); Cholesterol 139 mg/dl (140-200); Estimated Glomerular Filt Rate 92 ml/min (>60); GFR (African American) 111 ML/MIN (>60); Globulin 3.2 g/dL (1.3-3.2); Iron 93 ug/dL (49-181); Total Protein,Serum 7.5 g/dl (6.3-8.2); Triglycerides 86 mg/dl (30-150); VLDL Cholesterol 17 mg/dL (0-40)
[2024-03-25 14:02] LABS: Calcium 8.6 mg/dl (8.4-10.2); Chol/HDL Ratio 3.1 (1-3.5); Glucose 86 mg/dl (74-100); HDL Cholesterol 45 mg/dl (40-60)
[2024-03-25 14:13] LABS: Total Iron Binding Capacity 331 ug/dL (261-462)
[2024-03-25 14:14] LABS: Direct LDL Cholesterol 63.19 mg/dL (100-129)
[2024-03-25 14:15] LABS: Erythrocyte Sedimentation Rate 4 mm/hr (0-15)
[2024-03-25 14:38] LABS: Ferritin 33.6 ng/ml (17.9-464)
[2024-03-25 15:31] LABS: HIV (1&2) Antibody Rapid NONREACTIVE (NONREACTIVE)
[2024-03-25 19:51] LABS: D-Dimer 0.33 ug/mL (0.0-0.5)
[2024-03-26 08:04] LABS: HCV Ab Non Reactive (Non Reactive)
== END 2024-03-25 23:59 | disposition home or self-care (01) ==
LOC: LAB.DROPOF 14:12
PROVIDERS: PCP Nurse Practitioner Family; Visit Provider Nurse Practitioner Family
DX: Z11.4 Encounter for screening for human immunodeficiency virus [HIV] (principal); Z11.59 Encounter for screening for other viral diseases; I10 Essential (primary) hypertension; R60.0 Localized edema; D64.9 Anemia, unspecified; R06.09 Other forms of dyspnea; R91.8 Other nonspecific abnormal finding of lung field; R53.83 Other fatigue
CPT/HCPCS: 80053; 80061; 82728; 83540; 83550; 85025; 85378; 85651; 86140; 86803; 87389

== ENCOUNTER 2024-04-08 12:40 | Outpatient (CLI) | payer MEDICAID, SELFPAY ==
--- NOTE | 2024-04-08 12:43 | CA_ITS ---
APPROVED REPORT EXAM: Comprehensive 2D, Doppler, and color-flow Echocardiogram Medical Records Coder: Mariel Chang RT(R) Ht: 5 ft 11 in Wt: 306lbs BSA: 2.53 BP: 118/67 mmHg Indications: SOA, JOHN, dizziness, HTN, hyperlipidemia. 2D Dimensions Left Atrium 4.47 cm M: 3.0 - 4.0 LA Volume 38.60 mL LVOT 1.90 cm (M/F) 1.5-2.5 LA Volume Index 15.26 mL/m2 (M/F) 16-34 EF AP4 42.50 % GL Strain -11.4 % M-Mode Dimensions RVDd 2.41 cm (0.9-2.6) LVDd 5.59 cm (3.5-5.7) Ao Diam 3.07 cm (2.0-3.7) LVDs 3.73 cm (3.5-5.7) IVSd 0.80 cm (0.6-1.1) PWd 0.97 cm (0.6-1.1) EF (Teich) 61.20% FS 33.30% EDV (Teich) 153.00 mL ESV (Teich) 59.30 mL LV Diastology E Decel Time 178 (160-240 msec) E/A Ratio 0.9 MED E' 7.8 (>= 7 cm/sec) E'/MED E' Ratio 8.85 (<= 14) LAT E' 11.9 (>= 10 cm/sec) E/LAT E' Ratio 5.80 (<= 14) Mitral Valve MV E Max Stefan. 69.0 (40-130 cm/s) MV A Velocity 81.0 (40-130 cm/s) E/A Ratio 0.86 MV Decel. Time 178 (160-240 ms) Left Ventricle The left ventricle is normal size. The left ventricular systolic function is normal. The left ventricular ejection fraction is within the normal range. There is increased LV wall thickness. There is normal LV segmental wall motion. Transmitral Doppler flow pattern suggests impaired LV relaxation. LVEF is 55%. Right Ventricle The right ventricle is not very well-visualized, but grossly appears normal in size and function. Atria The left atrium size is normal. The right atrium is not well-visualized. The interatrial septum is not well-visualized. Aortic Valve The aortic valve opens well. There is no aortic valvular stenosis. No aortic regurgitation is present. Mitral Valve The mitral valve is normal in structure. No evidence of mitral valve stenosis. There is no mitral valve regurgitation noted. Tricuspid Valve The tricuspid valve leaflets are thin and pliable. Trace tricuspid regurgitation. There is insufficient TR jet to estimate RVSP. Pulmonic Valve The pulmonary valve is normal in structure. Trace pulmonic regurgitation. Great Vessels The aortic root is normal in size. The ascending aorta is not well-visualized. The IVC is not well-visualized. Pericardium There is no pericardial effusion. Other Information Study Quality: Technically Difficult Conclusion Technically difficult study due to poor acoustic windows. Normal biventricular systolic function. No significant valvular stenosis or regurgitation. In the setting of technically difficult study, future TTE evaluations are suggested with administration of ultrasound enhancing agent to better delineate the LV endocardial borders. Electronically signed by : Angela Terrell MD 04/08/2024 23:15:15
== END 2024-04-08 23:59 | disposition home or self-care (01) ==
LOC: RT 12:41
PROVIDERS: PCP Nurse Practitioner Family; Visit Provider Internal Medicine Pulmonary Disease
DX: R06.02 Shortness of breath (principal)
CPT/HCPCS: 93306

== ENCOUNTER → 2024-04-15 20:16 | Outpatient (CLI) | payer MEDICAID, SELFPAY | LOC: SL 20:17 | PROVIDERS: PCP Nurse Practitioner Family; Visit Provider Nurse Practitioner Family | DX: G47.33 Obstructive sleep apnea (adult) (pediatric) (principal) | CPT/HCPCS: 95811 ==

== ENCOUNTER 2024-04-17 08:20 | Outpatient (CLI) | payer MEDICAID, SELFPAY ==
--- NOTE | 2024-04-17 08:22 | CA_ITS ---
FINAL REPORT TECHNIQUE: Grayscale, color Doppler and duplex Doppler ultrasound of the kidneys, aorta and renal arteries was performed. Multiple velocities were measured. CLINICAL HISTORY: HTN COMPARISON: None FINDINGS: Aorta velocity: 110 cm/sec Right kidney: 12.5 cm. No evidence of hydronephrosis or mass. Right intrarenal RI: 0.55 Right renal artery velocity: 123 cm/sec. Right RAR (Renal artery-Aortic Ratio): 1.12 Left Kidney: 11.9 cm. No evidence of hydronephrosis or mass. Left intrarenal RI: 0.56 Left renal artery velocity: 103 cm/sec. Left RAR (Renal Artery-Aortic Ratio): 0.94 IMPRESSION: No evidence of significant renal artery stenosis. CT angiogram or postcontrast MR angiogram would be more sensitive for evaluation of possible renal artery stenosis. Reviewed, Interpreted and Dictated by Won Carey III, MD Transcribed by Kaet Verdugo Authenticated and [facility]
--- NOTE | 2024-04-17 09:07 | US_ITS ---
FINAL REPORT TECHNIQUE: Ultrasound images of the kidneys and bladder were obtained. 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 It is normal in echogenicity. There is no hydronephrosis. The left kidney measures 13 cm in length. It is normal in echogenicity. There is no hydronephrosis. IMPRESSION: No hydronephrosis or focal renal mass. Reviewed, Interpreted and Dictated by Won Carey III, MD Transcribed by Kate Verdugo Authenticated and [facility]
== END 2024-04-17 23:59 | disposition home or self-care (01) ==
LOC: RT 08:20
PROVIDERS: PCP Nurse Practitioner Family; Visit Provider Physician Assistant
DX: I27.24 Chronic thromboembolic pulmonary hypertension (principal); R06.09 Other forms of dyspnea; R53.83 Other fatigue; I10 Essential (primary) hypertension
CPT/HCPCS: 76770; 93976

== ENCOUNTER 2024-04-22 06:54 | Outpatient (CLI) | payer MEDICAID, SELFPAY ==
--- NOTE | 2024-04-22 | CA_ITS ---
APPROVED REPORT Exam: Pharmacologic Technologist: America Chapman, Ht: 5 ft 11 in Wt: 312 lbs BSA: 2.55 m2 HR: 59 bpm BP: 130/81 mmHg Rhythm: NSR Medical History Medications: Ferrous sulfate,,,,, Flomax,,,,, Zetia,,,,, Atorvastatin,,,,, HCTZ,,,,, Albuterol,,,,, Sertraline,,,,, ElIQUIS,,,,, OxYbutynin chloride,,,,, DOxycycline HYCLATE,,,,, Cardiac Risk Factors: HTN Stress Test Details Test: LEXISCAN HR Resting HR: 59 bpm Max Heart Rate (APMHR): 177 bpm Max HR Achieved: 104 bpm Target HR (85% APMHR): 150 bpm % of APMHR: 59 Recovery HR: 76 bpm BP Resting BP: 130.0/81.0 mmHg Max BP: 146.0/86.0 mmHg Recovery BP: 132.0/86.0 mmHg ECG Resting ECG: NSR Stress ECG: No significant ST changes Arrhythmia: None Clinical Exercise duration: 04:00 min Highest Stage Achieved: Exercise capacity: 1.0 METs Stress ECG Conclusion During lexiscan pt experinced SOB with lexiscan. No CP noted. No arrhythmias noted. Conclusion: Unremarkable with lexiscan infusion. Myoview images reported separately. Test Summary REST . . . . . . . Sitting REST . . . . . . . Sitting REST 05:11 . . 59 . 130/ 81 . . Stage 1 01:00 . . 103 . . . . Stage 2 01:00 . . 89 . . . . Stage 3 01:00 . . 88 . 146/ 86 . . Stage 4 01:00 . . 78 . 140/ 82 . Stop exercise at 04:00 RECOVERY 01:00 . . 79 . . . . RECOVERY 02:00 . . 83 . 132/ 86 . . RECOVERY 02:59 . . 78 . 139/ 83 . . Electronically signed by : Angela Terrell MD 04/23/2024 12:13:43
--- NOTE | 2024-04-22 06:58 | NM_ITS ---
APPROVED REPORT Exam: Nuclear Stress Test Indication: SOB, High cholesterol, Family history Patient Location: Outpatient Stress Tech: America Chapman HARSHA Tech:Susi Melissa, ARRT, RT (R)(N) Ht: 5 ft 11 in Wt: 306 lbs HR: 59 bpm BP: 130/81 mmHg BSA: 2.53 m2 Rhythm: NSR TID: 1.01 BMI: 42.6 History: SOB, High cholesterol, Family history Procedure: Patient received 0.4 mg of intravenous Lexiscan, resting heart rate 59 bpm, resting blood pressure 130/81 mmHg, with Lexiscan maximum heart rate achieved was 104 bpm which is % of the maximum predicted heart rate and blood pressure was 146/86 mmHg. With Lexiscan, patient denied any complaint of chest pain. Cardiac Stress and Resting SPECT Images: Cardiac Stress and Resting SPECT images were obtained using technetium 99m Myoview 31.4 mCi stress and 10.87 mCi at rest. Resting and stress imaging in supine and prone positions demonstrate no evidence of fixed or reversible perfusion defects. Gated imaging demonstrates normal global and regional LV systolic function. LVEF is calculated at 57%. Conclusion: No evidence of fixed or reversible perfusion defects. Gated imaging demonstrates normal global and regional LV systolic function. LVEF is calculated at 57%. Electronically signed by : Angela Terrell MD 04/23/2024 12:16:17
[2024-04-22] MEDS: ISOTOPE MYOVIEW (PER STUDY) 1 DOSE IV (09:15)
[2024-04-22] MEDS: SODIUM CHLORIDE 0.9% 10ML SYR (RAD ONLY) 10 ML IV ×2 (09:15)
[2024-04-22] MEDS: REGADENOSON 0.4MG/5ML SYRINGE 0.4 MG IV (09:15)
== END 2024-04-22 23:59 | disposition home or self-care (01) ==
LOC: RAD 06:55
PROVIDERS: PCP Nurse Practitioner Family; Visit Provider Physician Assistant
DX: R06.02 Shortness of breath (principal)
CPT/HCPCS: 78452; 93017; 93018; A9502; J2785

== ENCOUNTER 2024-05-04 10:08 | Emergency (ER) | payer MEDICAID, SELFPAY ==
[2024-05-04 10:35] VITALS: BP 108/72; PULSE 83; RESP 18; TEMP 36.7; O2SAT 95; BMI 43.7
[2024-05-04 10:55] LABS: UTC Strep Screen (Rapid) Negative (Negative)
[2024-05-04 10:56] LABS: UTC Influenza A Antigen Negative (Negative); UTC Influenza B Antigen Negative (Negative)
[2024-05-04 10:57] LABS: Adenovirus,PCR Not Detected (NotDetected); Bordetella Pertussis Not Detected (NotDetected); Chlamydophila Pneumoniae, PCR Not Detected (NotDetected); Coronavirus 19, PCR Not Detected (NotDetected); Coronavirus 229E Not Detected (NotDetected); Coronavirus NL63 Not Detected (NotDetected); Coronavirus OC43 Not Detected (NotDetected); Coronovirus HKU1,PCR Not Detected (NotDetected); Human Metapneumovirus Not Detected (NotDetected); Influenza A, PCR Not Detected (NotDetected); Influenza AH1, 2009 Not Detected (NotDetected); Influenza AH1, PCR Not Detected (NotDetected); Influenza AH3,PCR Not Detected (NotDetected); Influenza B, PCR Not Detected (NotDetected); Mycoplasma Pneumoniae, PCR Not Detected (NotDetected); Parainfluenza 1, PCR Not Detected (NotDetected); Parainfluenza 2, PCR Not Detected (NotDetected); Parainfluenza 3, PCR Not Detected (NotDetected); Parainfluenza 4, PCR Not Detected (NotDetected); Respiratory Syncytial Virus Not Detected (NotDetected); Rhinovirus/Enterovirus Not Detected (NotDetected)
--- NOTE | 2024-05-04 11:18 | ED_ITS ---
Discharge Plan Disposition Patient Disposition: Home, Self-Care Condition: Good Prescriptions Prescriptions: No Action atorvastatin 40 mg tablet 40 mg PO DAILY doxycycline hyclate 100 mg capsule 100 mg PO DAILY oxybutynin chloride 10 mg tablet extended release 24hr 10 mg PO DAILY lisinopril 20 mg tablet 20 mg PO DAILY tamsulosin 0.4 mg capsule 0.4 mg PO DAILY ferrous sulfate [FeroSul] 325 mg (65 mg iron) tablet 325 mg PO DAILY albuterol sulfate [Ventolin HFA] 90 mcg/actuation HFA aerosol inhaler 1 puff INHALATION DAILY sertraline 50 mg tablet 50 mg PO DAILY ezetimibe 10 mg tablet 10 mg PO DAILY omega-3 acid ethyl esters 1 gram capsule 1 g PO DAILY hydrochlorothiazide 12.5 mg tablet 12.5 mg PO DAILY [facility] 10 billion cell -200 mg capsule, sprinkle 1 cap PO DAILY Eliquis 5 mg tablet 5 mg PO DAILY Referrals Follow up/Referrals: Melanie Gardner APRN [Primary Care Provider] - See instructions Activity Restrictions/Add. Instructions Additional Instructions/Restrictions: *Monitor Temp, Over the counter Motrin or Tylenol as directed/as needed Tylenol every 4 hours and Motrin every 6 hours (as long as your family doctor has told you that you can take it) for fever or pain. and straight to ER if unable to lower temp less than 101.0 after medication given *Warm salt water gargles may help to soothe the throat *Throat Lozenges? *Warm fluids like tea with honey may help to soothe the throat? *Sleep elevated *Humidifier/Vaporizer Your throat swab was sent for culture. Those results are typically sent to your primary care. Be sure to follow up in 2-3 days with your family doctor/primary care physician if no improvement so they can review those result and treat if necessary. If you don?t have a primary care doctor, I recommend you get one but in the mean time, you will have to return to a walk in clinic Follow up IMMEDIATELY for new or worsening symptoms or no Noticeable improvement over the next 48-72 hours. 911 for difficulty breathing or swallowing You were tested for today for ?Upper Respirator Panel with COVID19 your test result should be back in the next 24hours, you may check your results on the [facility] My Health Portal Clinical Impressions Clinical Impression: Viral upper respiratory infection Instructions Patient Instructions: DI for Viral Upper Respiratory Infection -- Adult Print Language Print Language: Albanian Discharge ED Provider: Zoë Perdomo [facility] HPI General Stated complaint: body aches, fever, congestion, sore throat Mode of Arrival: Ambulatory Limitations: No Limitations Time Seen by Provider: 05/04/24 10:40 Description of Symptoms (Recalled from Triage Doc. by RN): PATIENT C/O FEVER, BODY ACHES AND SORE THROAT SINCE YESTERDAY HEENT Symptoms (Recalled from RN notes): Yes Resp Symptoms (Recalled from RN notes): No Skin Symptoms (Recalled from RN notes): No MS Symptoms (Recalled from RN notes): No Functional Status (Recalled from RN notes): WNL History of Present Illness Provider Complaint: Patient states that he started feeling bad yesterday having sore throat, body aches, chills, and thinks he may have had a fever not sure Denies known sick contacts States he is suppose to have a heart cath this week coming and wanted an URP to see if he may have one of the viruses going around Related Data Home Medications ?Medication ?Instructions ?Recorded ?Confirmed Lactobacil rhamnosus GG 10 billion 1 cap PO DAILY 05/04/24 05/04/24 cell-inulin 200 mg sprinkle capsule ([facility]) albuterol sulfate 90 mcg/actuation 1 puff inhalation DAILY 05/04/24 05/04/24 aerosol inhaler (Ventolin HFA) apixaban 5 mg tablet (Eliquis) 5 mg PO DAILY 05/04/24 05/04/24 atorvastatin 40 mg tablet 40 mg PO DAILY 05/04/24 05/04/24 doxycycline hyclate 100 mg capsule 100 mg PO DAILY 05/04/24 05/04/24 ezetimibe 10 mg tablet 10 mg PO DAILY 05/04/24 05/04/24 ferrous sulfate 325 mg (65 mg 325 mg PO DAILY 05/04/24 05/04/24 iron) tablet (FeroSul) hydrochlorothiazide 12.5 mg tablet 12.5 mg PO DAILY 05/04/24 05/04/24 lisinopril 20 mg tablet 20 mg PO DAILY 05/04/24 05/04/24 omega-3 acid ethyl esters 1 gram 1 g PO DAILY 05/04/24 05/04/24 capsule oxybutynin chloride 10 mg 10 mg PO DAILY 05/04/24 05/04/24 tablet,extended release 24 hr sertraline 50 mg tablet 50 mg PO DAILY 05/04/24 05/04/24 tamsulosin 0.4 mg capsule 0.4 mg PO DAILY 05/04/24 05/04/24 Allergies Allergy/AdvReac Type Severity Reaction Status Date / Time Latex, Natural Rubber Allergy Mild cooper skin Verified 04/30/24 10:43 lisinopril AdvReac Severe dizziness, Verified 04/30/24 10:43 lightheadedness Ohawnne-FOA-ImM Reductase AdvReac Intermediate elevated Verified 04/30/24 10:43 Inhibitor CK, rhabdo cephalexin [From Keflex] AdvReac Mild Vomiting Verified 04/30/24 10:43 Worker's Comp Is this a Worker's Comp case?: No [facility] Disclaimer: The information contained in this section may have been updated after the patient was seen, as this information can be updated by other users. Medical History JOHN (obstructive sleep apnea) Dyspnea on exertion Pulmonary air trapping Multiple lung nodules on CT E-coli UTI Right lower lobe pneumonia History of pulmonary embolism Testicular disorder left Foot infection Surgical site infection Open wound of right heel Plantar fasciitis of right foot Callus of foot Acquired equinus deformity of both feet Acquired hallux valgus of both feet BMI 40.0-44.9, adult MRSA infection Constipation Neelima infection Acute osteomyelitis of right calcaneus Constipation Hypoxemia Postoperative seroma Pulmonary embolism Acute viral syndrome Phantom pain after amputation of lower extremity Lumbar radiculopathy Fever Itching due to drug Viral syndrome H1N1 influenza Fever History of COVID-19 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 Anemia GERD (gastroesophageal reflux disease) Psoriasis Adiel's deformity of right heel Exposure to 2019 novel coronavirus Migraine Acquired hammertoes of both feet Right Achilles tendinitis Heel spur Right Achilles bursitis Laceration of right index finger GI bleed Surgical History Status post below knee amputation of right lower extremity History of incision and drainage Multiple procedures on right calcaneous History of foot surgery Hx of surgical amputation of finger 7 surgeries to finger/partial amputation Previous back surgery Status post tendon repair left ankle Family History Other Hypertension Social History Smoking Status: Never smoker alcohol intake: current substance use type: denies use current occupational status: employed Travel in the last 8 weeks: None household members: spouse and children housing: house lives independently: No education level: high school caffeine: Yes special davin needs: No agree to transfusion: No do you feel safe at home: Yes victim of physical abuse: No victim of emotional abuse: No victim of sexual abuse: No would you like helpful sources: No ROS Obtained: Yes All systems reviewed & no additional complaints except as documented and Yes Systems reviewed as appropriate & no additional complaints except as documented Constitutional Constitutional: Reports system reviewed and no additional complaints, except as documented, Reports as per HPI, Reports body ache, Reports chills and Reports fever(s) ENT Ears, Nose, Mouth, and Throat: Reports system reviewed and no additional complaints, except as documented, Reports as per HPI and Reports sore throat Cardiovascular Cardiovascular: Reports system reviewed and no additional complaints, except as documented and Reports as per HPI Respiratory Respiratory: Reports system reviewed and no additional complaints, except as documented and Reports as per HPI Physical Exam General General appearance: alert and in no apparent distress ENT ENT exam: Present mucous membranes moist Expanded ENT Exam TM/Canal exam: Right TM: erythema (mild redness noted) Nose exam: Absent sinus tenderness Throat exam: Present tonsillar erythema (several tonsil stones noted) Respiratory Respiratory exam: Present normal lung sounds bilaterally; Absent respiratory distress or wheezes Cardiovascular Cardiovascular exam: Present regular rate, normal rhythm and normal heart sounds Neurological Exam Neurological exam: Present alert, oriented X3 and normal gait Medical Decision Making Medical Records Screening: Per USPSTF and CDC recommendations, given the prevalence of disease in our region, it is our hospital?s policy to screen for HIV and viral Hepatitis for all patients aged 18 and over and those with ongoing risk factors. Aries Inquiry Pt receiving controlled substance: No Aries was queried for this patient: No Vital Signs: 05/04/24 10:35 Temperature 98.1 F Temperature Source Oral Pulse Rate [Left Brachial] 83 Respiratory Rate 18 Blood Pressure [Left Arm] 108/72 L Blood Pressure Mean [Left Arm] 84 Blood Pressure Source [Left Arm] Automatic Cuff Blood Pressure Position [Left Arm] Sitting 02 Sat by Pulse Oximetry 95 Oxygen Delivery Method Room Air Lab Data Lab results reviewed: Yes I reviewed the patient's lab results. Lab Results 05/04/24 10:35: Influenza Type A Ag Negative, Influenza Type B Ag Negative 05/04/24 10:38: Strep Scn Rapid Clinic Negative Orders (Tests/Meds): ORDERS Category Date Time Status Full Resp Panel w/COVID ([facility]) Routine Lab 05/04/24 10:40 Received Strep Screen Confirmation Stat Micro 05/04/24 10:38 Received
[2024-05-04 11:22] VITALS: BP 108/72; PULSE 83; RESP 18; TEMP 36.7; O2SAT 95
== END 2024-05-04 11:25 | disposition home or self-care (01) ==
PROVIDERS: Emergency Provider Nurse Practitioner; PCP Nurse Practitioner Family
DX: J06.9 Acute upper respiratory infection, unspecified (principal)
CPT/HCPCS: 87265; 87486; 87581; 87632; 87635; 87804; 87880; 99213; G0381

== ENCOUNTER 2024-05-06 07:06 | Day surgery (SDC) | payer MEDICAID, SELFPAY ==
[2024-05-06] VITALS (8 sets, daily range): BP systolic 118–164; BP diastolic 77–120; PULSE 20–99; RESP 18–20; TEMP 36.9; O2SAT 95–97; BMI 43.3
--- NOTE | 2024-05-06 07:16 | IR_ITS ---
APPROVED REPORT Patient Location: Outpatient Director Of Reimbursement: Aydin Gautam, RT (R) PROCEDURES Right heart catheterization INDICATION Pulmonary hypertension Informed consent was obtained prior to the procedure. COMPLICATIONS NONE Estimated Blood Loss: LESS THAN 10 ML TECHNIQUE One percent lidocaine was used to anesthetize the right anterior aspect of the neck. A pottery decoration designer needle was used to identify the right internal jugular vein. Following this a larger cannulation needle was used to cannulate the right internal jugular vein and a wire was passed into the vein. Prior to the 7 [place] sheath being inserted the wire was confirmed under fluoroscopic guidance to be in the inferior vena cava. A 7 [place] sheath was introduced and a [place] catheter was floated using hemodynamic waveforms in the pulmonary artery, right ventricle , and right atrium. Saturations were obtained in the pulmonary artery and the right atrium. At the end of the procedure the patient was transferred to the postop holding area in stable condition for sheath removal. ANGIOGRAPHIC RESULTS Right atrial pressure 10 mmHg Right ventricular pressure 35/10 mmHg Pulmonary artery pressure 35/20 mmHg Pulmonary occlusion pressure 17 mmHg Aortic saturation 99% Right atrial saturation 84% Pulmonary artery saturation 83% Hemoglobin 16.1 Cardiac output 9.2 L/min Cardiac index 3.6 IMPRESSION Mild pulmonary hypertension Elevated left-sided filling pressures consistent with diastolic dysfunction PLAN 1. Continue medical management Electronically signed by : Hugh Craig MD 05/06/2024 11:16:21
[2024-05-06 09:03] LABS: Basophils # 0.1 K/mm3 (0-0.2); Basophils % 0.6 % (0.1-2.0); Eosinophils # 0.2 K/mm3 (0.0-0.4); Eosinophils % 2.4 % (0.1-12.0); Hematocrit 48.6 % (42.0-52.0); Hemoglobin 16.1 g/dL (14.1-18.0); Lymphocytes # 1.7 K/mm3 (0.7-4.5); Lymphocytes % 18.5 % (10-50); Mean Corpuscular HGB Conc 33.2 g/dL (31.8-35.4); Mean Corpuscular Hemoglobin 27.3 pg (27.0-31.2); Mean Corpuscular Volume 82.2 fl (80-94); Monocytes # 0.6 K/mm3 (0.1-1.0); Monocytes % 6.1 % (1.7-9.3); Neutrophils # 6.5 K/mm3 (1.8-7.8); Neutrophils % 72.3 % (37.0-80.0); Platelet Count 224 K/mm3 (142-424); Red Blood Count 5.91 M/mm3 (4.60-6.20)
[2024-05-06 09:15] LABS: Anion Gap 9.9 mEq/L (5-15); Blood Urea Nitrogen 16 mg/dl (9-20); Calcium 8.4 mg/dl (8.4-10.2); Carbon Dioxide 26 mmol/L (22.0-30.0); Chloride 108 mmol/L (98-107); Creatinine Clearance Estimated 127 mL/min (50-200); Estimated Glomerular Filt Rate 106 ml/min (>60); GFR (African American) 128 ML/MIN (>60); Glucose 103 mg/dl (74-100); Potassium 3.9 mmoL/L (3.5-5.1); Sodium 140 mmol/L (136-145)
[2024-05-06] MEDS: FENTANYL 100MCG/2ML VIAL 50 MCG IV (10:38)
[2024-05-06] MEDS: MIDAZOLAM HCL 1MG/ML 5ML VIAL 1 MG IV (10:38)
[2024-05-06] MEDS: 0.9 % SODIUM CHLORIDE 500 ML 25 ML IV (10:39)
[2024-05-06] MEDS: HEPARIN 1,000 UNITS/500ML NS (CATH LAB) 3000 UNIT IV (10:39)
[2024-05-06] MEDS: LIDOCAINE 1% 10ML MDV 20 ML IJ (10:39)
[2024-05-06] MEDS: diphenhydrAMINE 50MG/ML VIAL 50 MG IV (10:40)
[2024-05-06 13:00] LABS: CATHL Arterial O2 SAT 83.2 % (90-100); CATHL Venous O2 SAT 84 % (75-80)
== END 2024-05-06 12:29 | disposition home or self-care (01) ==
PROVIDERS: PCP Nurse Practitioner Family; Visit Provider Internal Medicine
DX: I27.24 Chronic thromboembolic pulmonary hypertension (principal); I10 Essential (primary) hypertension; R53.83 Other fatigue; R06.09 Other forms of dyspnea; Z79.899 Other long term (current) drug therapy; Z79.01 Long term (current) use of anticoagulants; D68.2 Hereditary deficiency of other clotting factors; G47.33 Obstructive sleep apnea (adult) (pediatric)
CPT/HCPCS: 80048; 82810; 85025; 93451; C1725; C1894; J1200; J1644; J2250; J3010

== ENCOUNTER 2024-06-11 10:46 | Outpatient (CLI) | payer MEDICAID, SELFPAY | END 2024-06-11 23:59 | disposition home or self-care (01) | LOC: RT 10:47 | PROVIDERS: PCP Nurse Practitioner Family; Visit Provider Internal Medicine Pulmonary Disease | DX: R06.02 Shortness of breath (principal) | CPT/HCPCS: 94618 ==

== ENCOUNTER 2024-06-19 13:49 | Outpatient (CLI) | payer MEDICAID, SELFPAY ==
[2024-06-19 14:58] LABS: Chloride 106 mmol/L (98-107)
[2024-06-19 14:59] LABS: Potassium 3.8 mmoL/L (3.5-5.1); Sodium 135 mmol/L (136-145)
[2024-06-19 15:02] LABS: Anion Gap 6.8 mEq/L (5-15); Blood Urea Nitrogen 19 mg/dl (9-20); Calcium 8.6 mg/dl (8.4-10.2); Carbon Dioxide 26 mmol/L (22.0-30.0); Estimated Glomerular Filt Rate 92 ml/min (>60); GFR (African American) 111 ML/MIN (>60); Glucose 132 mg/dl (74-100); Magnesium 1.9 mg/dl (1.6-2.3)
== END 2024-06-19 23:59 | disposition home or self-care (01) ==
LOC: LAB 13:50
PROVIDERS: PCP Nurse Practitioner Family; Visit Provider Physician Assistant
DX: E78.49 Other hyperlipidemia (principal); R53.83 Other fatigue; I10 Essential (primary) hypertension; D64.9 Anemia, unspecified
CPT/HCPCS: 36415; 80048; 83735

== ENCOUNTER 2024-10-21 12:02 | Outpatient (CLI) | payer MEDICAID, SELFPAY ==
[2024-10-21 14:15] LABS: Microscopic, Urine URINE MICROSCOPIC (MICROSCOPIC)
[2024-10-21 15:03] LABS: Basophils # 0.1 K/mm3 (0-0.2); Basophils % 0.7 % (0.1-2.0); Eosinophils # 0.2 K/mm3 (0.0-0.4); Eosinophils % 2.3 % (0.1-12.0); Hematocrit 49.2 % (42.0-52.0); Hemoglobin 16.1 g/dL (14.1-18.0); Lymphocytes # 2.3 K/mm3 (0.7-4.5); Lymphocytes % 31.4 % (10-50); Mean Corpuscular HGB Conc 32.7 g/dL (31.8-35.4); Mean Corpuscular Hemoglobin 27.5 pg (27.0-31.2); Mean Platelet Volume 10.3 fl (7.4-10.4); Monocytes # 0.7 K/mm3 (0.1-1.0); Monocytes % 9.5 % (1.7-9.3); Neutrophils # 4.1 K/mm3 (1.8-7.8); Neutrophils % 55.8 % (37.0-80.0); Nucleated Red Blood Cells # 0 10^3/uL; Nucleated Red Blood Cells % 0 %; Platelet Count 199 K/mm3 (142-424); Red Blood Count 5.86 M/mm3 (4.60-6.20); Red Cell Distribution Width 13.5 % (11.5-17.5); Red Cell Distribution Width-SD 41.2 fL; White Blood Count 7.4 K/mm3 (4.8-10.8)
[2024-10-21 15:04] LABS: Appearance,Urine CLEAR (Clear); Bilirubin,Urine Negative (Negative); Blood, Urine Negative (Negative); Color,Urine YELLOW (Yellow); Glucose,Urine (UA) Negative (Negative); Ketones,Urine Negative (Negative); Leukocyte Esterase,Urine Negative (Negative); Nitrate,Urine Negative (Negative); PH,Urine 6.5 (5.0-8.5); Protein,Urine Negative (Negative); Urobilinogen,Urine 0.2 EU/dl (0.2)
[2024-10-21 15:28] LABS: WBC,Urine Occasional #/hpf (0-3)
[2024-10-21 15:36] LABS: Hemoglobin A1C 5.6 % (4.0-6.0)
[2024-10-21 17:36] LABS: Alanine Aminotransferase 52 U/L (12-78); Albumin Level 4.2 g/dl (3.5-5.0); Albumin/Globulin Ratio 1.2 (1.1-1.8); Alkaline Phosphatase 98 U/L (38-126); Anion Gap 15.3 mEq/L (5-15); Aspartate Amino Transferase 44 U/L (17-59); Bilirubin,Total 0.8 mg/dl (0.2-1.3); Blood Urea Nitrogen 15 mg/dl (9-20); Calcium 8.8 mg/dl (8.4-10.2); Carbon Dioxide 25 mmol/L (22.0-30.0); Chloride 103 mmol/L (98-107); Chol/HDL Ratio 2.9 (1-3.5); Cholesterol 126 mg/dl (140-200); Estimated Glomerular Filt Rate 123 ml/min (>60); GFR (African American) 148 ML/MIN (>60); Globulin 3.6 g/dL (1.3-3.2); Glucose 81 mg/dl (74-100); HDL Cholesterol 44 mg/dl (40-60); Potassium 4.3 mmoL/L (3.5-5.1); Sodium 139 mmol/L (136-145); Total Protein,Serum 7.8 g/dl (6.3-8.2); Triglycerides 77 mg/dl (30-150); VLDL Cholesterol 15 mg/dL (0-40)
[2024-10-21 17:44] LABS: Free T4 (Free Thyroxine) 1.31 ng/dl (0.78-2.19)
[2024-10-21 17:46] LABS: 25-OH Vitamin D, Total 50.9 ng/mL (30-100)
[2024-10-21 17:47] LABS: Direct LDL Cholesterol 54.71 mg/dL (100-129)
[2024-10-21 18:25] LABS: Vitamin B12 694 pg/mL (239-931)
[2024-10-21 18:33] LABS: Iron 129 ug/dL (49-181)
[2024-10-21 18:44] LABS: Total Iron Binding Capacity 316 ug/dL (261-462)
[2024-10-21 19:10] LABS: Ferritin 73.6 ng/ml (17.9-464)
--- OUTSIDE RECORDS SUMMARY | 2024-10-22 15:08 | XMS_ITS | Data Portability ---
Author Organization [facility] ADMIN Address [address] [place] [id number] Care Team Providers Care Barrel Bander Name Role Phone VIDYA KNOWLESIAN Primary Care Provider Assessment No assessment recorded. Plan of Treatment Reminders Order Date Submit Date Provider Last Modified By Organization Details Last Modified Time Details Appointments None recorded. Lab C-reactive protein, quantitativ e, serum or plasma [address] Lab, [address] [facility], [place], [address], 4 17:36:31 ESR (erythrocyt e sedimentati on rate), blood 2023 024 [place] [id number] [facility], [address] [facility], [place], [address], 4 17:36:31 C-reactive protein, quantitativ e, serum or plasma 2023 024 [email or web address], [address], [address], [place], [address], 4 08:08:32 ESR (erythrocyt e sedimentati on rate), blood 2023 024 [email or web address] d42 [facility], [address], [address], [place], [address], 4 08:08:32 CBC w/ auto diff 2023 024 [facility], [address], [place], [address], 4 16:12:13 CMP, serum or plasma 2023 024 [facility], [address] [facility], [place], [address], 4 16:42:07 CBC w/ auto diff 2023 024 [facility], [address] [facility], [place], [address], 4 15:22:25 CMP, serum or plasma 2023 024 [facility], [address] [facility], [place], [address], 4 16:32:05 prothrombin (factor II) [id number] mutation, blood 2023 024 [email or web address] 6 [facility], [address] , [place], [address], 4 08:55:21 factor VIII activity, plasma 2023 024 [email or web address] 6 [facility], [address] , [place], [address], 4 08:26:01 protein C + protein S, functional panel, plasma 20[email or web address] [facility], [address] , [place], [address], 4 08:26:02 Referral None recorded. Procedures None recorded. Surgeries None recorded. Imaging None recorded. Medication Orders doxycycline hyclate 100 mg capsule 2023 024 [facility], [address] [facility], [address], [place], [address], 4 09:18:27 Patient TargetsNo targets recorded. Patient InstructionsNo instructions recorded. Reason for Referral None Reported. Results Created Date Observation Date Name Description Value Unit Range Abnormal Flag Note LastModifiedBy Organization Detail LastModifiedTime 07/06/20 23 07/07/2023 COMP. METAB OLIC PANEL (14) glucose 92 mg/dL 70-99 Not Available [facility] ([facility]) [address] [place], [address], 07/07/2023 13:08:40 07/06/20 23 07/07/2023 COMP. METAB OLIC PANEL (14) BUN 18 mg/dL 6-24 Not Available [facility] ([facility]) [address] [place], [address], 07/07/2023 13:08:40 07/06/20 23 07/07/2023 COMP. METAB OLIC PANEL (14) creatinine 0.85 mg/dL 0.76-1 .27 Not Available [facility] ([facility]) [address] [place], [address], 07/07/2023 13:08:40 07/06/20 23 07/07/2023 COMP. METAB OLIC PANEL (14) eGFR 111 mL/mi n/1.7 3 >59 Not Available [facility] ([facility]) [address] [place], [address], 07/07/2023 13:08:40 07/06/20 23 07/07/2023 COMP. METAB OLIC PANEL (14) BUN/creatini ne ratio 21 9-20 above high normal Not Available [facility] ([facility]) [address] [place], [address], 07/07/2023 13:08:40 07/06/20 23 07/07/2023 COMP. METAB OLIC PANEL (14) sodium 140 mmol/ L 134-14 4 Not Available [facility] ([facility]) [address] [place], [address], 07/07/2023 13:08:40 07/06/20 23 07/07/2023 COMP. METAB OLIC PANEL (14) potassium 4.1 mmol/ L 3.5-5. 2 Not Available [facility] ([facility]) [address] [place], [address], 07/07/2023 13:08:40 07/06/20 23 07/07/2023 COMP. METAB OLIC PANEL (14) chloride 105 mmol/ L 96-106 Not Available [facility] ([facility]) [address] [place], [address], 07/07/2023 13:08:40 07/06/20 23 07/07/2023 COMP. METAB OLIC PANEL (14) carbon dioxide, total 22 mmol/ L Not Available [facility] ([facility]) [address] [place], [address], 07/07/2023 13:08:40 07/06/20 23 07/07/2023 COMP. METAB OLIC PANEL (14) calcium 8.9 mg/dL 8.7-10 .2 Not Available [facility] ([facility]) [address] [place], [address], 07/07/2023 13:08:40 07/06/20 23 07/07/2023 COMP. METAB OLIC PANEL (14) protein, total 7.3 g/dL 6.0-8. 5 Not Available [facility] ([facility]) [address] [place], [address], 07/07/2023 13:08:40 07/06/20 23 07/07/2023 COMP. METAB OLIC PANEL (14) albumin 4.3 g/dL 4.1-5. 1 Not Available [facility] ([facility]) [address] [facility], [place], [address], 07/07/2023 13:08:40 07/06/20 23 07/07/2023 COMP. METAB OLIC PANEL (14) globulin, total 3.0 g/dL 1.5-4. 5 Not Available [facility] ([facility]) [address] [place], [address], 07/07/2023 13:08:40 07/06/20 23 07/07/2023 COMP. METAB OLIC PANEL (14) A/G ratio 1.4 1.2-2. 2 Not Available [facility] ([facility]) [address] [facility] [place], [address], 07/07/2023 13:08:40 07/06/20 23 07/07/2023 COMP. METAB OLIC PANEL (14) bilirubin, total 0.3 mg/dL 0.0-1. 2 Not Available [facility] ([facility]) [address] [facility], [place], [address], 07/07/2023 13:08:40 07/06/20 23 07/07/2023 COMP. METAB OLIC PANEL (14) alkaline phosphatase 85 IU/L 44-121 Not Available [facility] ([facility]) [address] [facility], [place], [address], 07/07/2023 13:08:40 07/06/20 23 07/07/2023 COMP. METAB OLIC PANEL (14) AST (SGOT) 24 IU/L 0-40 Not Available [facility] ([facility]) [address] [facility] [place], [address], 07/07/2023 13:08:40 07/06/20 23 07/07/2023 COMP. METAB OLIC PANEL (14) ALT (SGPT) 25 IU/L 0-44 Not Available [facility] ([facility]) [address] [facility], [place], [address], 07/07/2023 13:08:40 07/06/20 23 07/07/2023 SEDIM ENTAT ION RATE- WESTE RGREN sedimentatio n rate-westerg los 28 mm/HR 0-15 above high normal Not Available [facility] ([facility]) [address] [facility], [place], [address], 07/07/2023 13:08:42 07/06/20 23 07/07/2023 C-CHANA CTIVE PROTE IN, QUANT C-reactive protein, quant 11 mg/L 0-10 above high normal Not Available [facility] ([facility]) [address] [facility], [place], [address], 07/07/2023 13:08:43 07/25/19 24 07/25/2023 CBC AUTO W DIFF WBC 6.7 K/uL 4.0-10 .5 Not Available [facility] ([facility]) [address] [facility], [place], [address], 07/25/2023 15:22:25 07/25/19 24 07/25/2023 CBC AUTO W DIFF RBC 5.7 M/mm3 4.7-6. 1 Not Available [facility] ([facility]) [address] [facility], [place], [address], 07/25/2023 15:22:25 07/25/19 24 07/25/2023 CBC AUTO W DIFF HGB 14.8 gm/dL 13.5-1 8.0 Not Available [facility] ([facility]) [address] [facility], [place], [address], 07/25/2023 15:22:25 07/25/19 24 07/25/2023 CBC AUTO W DIFF HCT 45.4 % 42.0-5 2.0 Not Available [facility] ([facility]) [address] [facility], [place], [address], 07/25/2023 15:22:25 07/25/19 24 07/25/2023 CBC AUTO W DIFF MCV 79.6 fL 78-100 Not Available [facility] ([facility]) [address], [place], [address], 07/25/2023 15:22:25 07/25/19 24 07/25/2023 CBC AUTO W DIFF MCH 26.0 pg 27-31 low Not Available [facility] ([facility]) [address], [place], [address], 07/25/2023 15:22:25 07/25/19 24 07/25/2023 CBC AUTO W DIFF MCHC 32.6 g/dL 32-36 Not Available [facility] ([facility]) [address], [place], [address], 07/25/2023 15:22:25 07/25/19 24 07/25/2023 CBC AUTO W DIFF RDW 13.7 % 11.5-1 4.0 Not Available [facility] ([facility]) [address], [place], [address], 07/25/2023 15:22:25 07/25/19 24 07/25/2023 CBC AUTO W DIFF platelet count 279 K/uL 150-45 0 Not Available [facility] ([facility]) [address], [place], [address], 07/25/2023 15:22:25 07/25/19 24 07/25/2023 CBC AUTO W DIFF MPV 10.0 fL 6-9.5 high Not Available [facility] ([facility]) [address] , [place], [address], 07/25/2023 15:22:25 07/25/19 24 07/25/2023 CBC AUTO W DIFF neutrophil% 61.2 % 43-65 Not Available [facility] ([facility]) [address] , [place], [address], 07/25/2023 15:22:25 07/25/19 24 07/25/2023 CBC AUTO W DIFF lymphocyte% 25.7 % 20.5-4 5.5 Not Available [facility] ([facility]) [address] [place], [address], 07/25/2023 15:22:25 07/25/19 24 07/25/2023 CBC AUTO W DIFF monocyte% 9.2 % 5.5-11 .7 Not Available [facility] ([facility]) [address] [place], [address], 07/25/2023 15:22:25 07/25/19 24 07/25/2023 CBC AUTO W DIFF eosinophil% 3.0 % 0.9-2. 9 high Not Available [facility] ([facility]) [address] [facility], [place], [address], 07/25/2023 15:22:25 07/25/19 24 07/25/2023 CBC AUTO W DIFF basophil% 0.6 % 0.2-1. 0 Not Available [facility] ([facility]) [address] [place], [address], 07/25/2023 15:22:25 07/25/19 24 07/25/2023 CBC AUTO W DIFF immature granulocytes % 0.3 % 0.0-0. 8 Not Available [facility] ([facility]) [address] [place], [address], 07/25/2023 15:22:25 07/25/19 24 07/25/2023 CBC AUTO W DIFF nucleated red blood cells % 0.0 % Not Available [facility] ([facility]) [address] [place], [address], 07/25/2023 15:22:25 07/25/19 24 07/25/2023 CBC AUTO W DIFF neutrophil# 4.1 K/uL 2.2-4. 8 Not Available [facility] ([facility]) [address] [place], [address], 07/25/2023 15:22:25 07/25/19 24 07/25/2023 CBC AUTO W DIFF lymphocyte# 1.7 cell/ mcL 1.3-2. 9 Not Available [facility] ([facility]) [address] [facility], [place], [address], 07/25/2023 15:22:25 07/25/19 24 07/25/2023 CBC AUTO W DIFF monocyte# 0.6 cell/ mcL 0.3-0. 8 Not Available [facility] ([facility]) [address] [facility], [place], [address], 07/25/2023 15:22:25 07/25/19 24 07/25/2023 CBC AUTO W DIFF eosinophil# 0.2 cell/ mcL 0-0.2 Not Available [facility] ([facility]) [address] [facility], [place], [address], 07/25/2023 15:22:25 07/25/19 24 07/25/2023 CBC AUTO W DIFF basophil# 0.0 cell/ mcL 0.0-1. 0 Not Available [facility] ([facility]) [address] [facility], [place], [address], 07/25/2023 15:22:25 07/25/19 24 07/25/2023 CBC AUTO W DIFF immature gramulocytes # 0.02 K/uL Not Available [facility] ([facility]) [address] [facility], [place], [address], 07/25/2023 15:22:25 07/25/19 24 07/25/2023 CBC AUTO W DIFF nucleated red blood cells # 0.00 K/uL Not Available [facility] ([facility]) [address] [facility], [place], [address], 07/25/2023 15:22:25 07/25/19 24 07/25/2023 CBC AUTO W DIFF manual differential NO Not Available [facility] ([facility]) [address] , [place], [address], 07/25/2023 15:22:25 07/25/19 24 07/25/2023 PT (PROT HROMB IN TIME) W INR prothrombin time 11.0 secon ds 9.3-11 .4 Not Available [facility] ([facility]) [address] , [place], [address], 07/25/2023 16:27:47 07/25/19 24 07/25/2023 PT (PROT HROMB IN TIME) W INR INR 1.00 ratio 0.97-1 .05 INR is inten ded to be used ONLY for patie nts on stabl e oral antic oagul ant thera py. Thera peuti c Range s: 2.0-3 .0 Usual Thera peuti c Range 2.5-3 .5 For patie nts with histo ry of Multi ple Deep Vein Throm bus or Mecha nical Heart Valve s Not Available [facility] ([facility]) [address] , [place], [address], 07/25/2023 16:27:47 07/25/19 24 07/25/2023 COMP METAB OLIC PANEL sodium 142 mmol/ L 136-14 5 Not Available [facility] ([facility]) [address] , [place], [address], 07/25/2023 16:32:05 07/25/19 24 07/25/2023 COMP METAB OLIC PANEL potassium 3.7 mmol/ L 3.6-5. 0 Not Available [facility] ([facility]) [address] [place], [address], 07/25/2023 16:32:05 07/25/19 24 07/25/2023 COMP METAB OLIC PANEL chloride 104 mmol/ L 98-107 Not Available [facility] ([facility]) [address] [place], [address], 07/25/2023 16:32:05 07/25/19 24 07/25/2023 COMP METAB OLIC PANEL carbon dioxide 29.1 mmol/ L 21.0-3 2.0 Not Available [facility] ([facility]) [address], [place], [address], 07/25/2023 16:32:05 07/25/19 24 07/25/2023 COMP METAB OLIC PANEL anion gap 12.6 Not Available [facility] ([facility]) [address], [place], [address], 07/25/2023 16:32:05 07/25/19 24 07/25/2023 COMP METAB OLIC PANEL glucose 85 mg/dL 70-120 Not Available [facility] ([facility]) [address] , [place], [address], 07/25/2023 16:32:05 07/25/19 24 07/25/2023 COMP METAB OLIC PANEL BUN 16 mg/dL 7-18 Not Available [facility] ([facility]) [address] , [place], [address], 07/25/2023 16:32:05 07/25/19 24 07/25/2023 COMP METAB OLIC PANEL creatinine 0.8 mg/dL 0.6-1. 3 Not Available [facility] ([facility]) [address] , [place], [address], 07/25/2023 16:32:05 07/25/19 24 07/25/2023 COMP METAB OLIC PANEL glomerular filtration rate >60 mlper min 60- Not Available [facility] ([facility]) [address] , [place], [address], 07/25/2023 16:32:05 07/25/19 24 07/25/2023 COMP METAB OLIC PANEL total protein 7.6 g/dL 6.4-8. 2 Not Available [facility] ([facility]) [address], [place], [address], 07/25/2023 16:32:05 07/25/19 24 07/25/2023 COMP METAB OLIC PANEL albumin 3.5 g/dL 3.4-5. 0 Not Available [facility] ([facility]) [address], [place], [address], 07/25/2023 16:32:05 07/25/19 24 07/25/2023 COMP METAB OLIC PANEL globulin 4.1 Not Available [facility] ([facility]) [address], [place], [address], 07/25/2023 16:32:05 07/25/19 24 07/25/2023 COMP METAB OLIC PANEL alb/glob ratio 0.9 0.7-2 Not Available [facility] ([facility]) [address], [place], [address], 07/25/2023 16:32:05 07/25/19 24 07/25/2023 COMP METAB OLIC PANEL calcium 8.8 mg/dL 8.5-10 .5 Not Available [facility] ([facility]) [address], [place], [address], 07/25/2023 16:32:05 07/25/19 24 07/25/2023 COMP METAB OLIC PANEL bilirubin total 0.40 mg/dL 0.10-1 .00 Not Available [facility] ([facility]) [address], [place], [address], 07/25/2023 16:32:05 07/25/19 24 07/25/2023 COMP METAB OLIC PANEL AST (SGOT) 24 U/L 0-37 Not Available [facility] ([facility]) [address], [place], [address], 07/25/2023 16:32:05 07/25/19 24 07/25/2023 COMP METAB OLIC PANEL ALT (SGPT) 27 U/L 0-65 Not Available [facility] ([facility]) [address], [place], [address], 07/25/2023 16:32:05 07/25/19 24 07/25/2023 COMP METAB OLIC PANEL alk phosphatase 74 U/L 46-116 Not Available [facility] ([facility]) [address], [place], [address], 07/25/2023 16:32:05 07/25/19 24 07/27/2023 FACTO R VIII (8) ACTIV ITY factor VIII (8) activity 159 % 56-140 high Perfo rmed at: - [facility] [place] [address] [place] [address] Lab Direc tor: Linda ho MD, Phone : [phone] Not Available [facility] ([facility]) [address] [facility], [place], [address], 07/27/2023 06:19:41 07/25/19 24 07/27/2023 PROTE IN C FUNTI ONAL protein C functional 102 % 73-180 Perfo rmed at: - [facility] [place] [address] [place] [address] Lab Direc tor: Linda ho MD, Phone : [phone] Not Available [facility] ([facility]) [address] [facility], [place], [address], 07/27/2023 06:19:42 07/25/19 24 07/27/2023 PROTE IN S-FUN CTION AL(AC TIVIT Y) protein S, functional 84 % 63-140 Prote in S activ ity may be false ly incre ased (mask ing an abnor mal, low resul t) in patie nts recei ving direc t Xa inhib itor (e.g. , rivar oxaba n, apixa ban, edoxa ban) or a direc t throm bin inhib itor (e.g. , dabig atran ) antic oagul ant treat ment due to assay inter feren ce by these drugs . Perfo rmed at: [facility] - [facility] [address] , [place] [address] Lab Direc tor: Linda ho MD, Phone : [phone] Not Available [facility] ([facility]) [address], [place], [address], 07/27/2023 06:19:43 07/25/19 24 08/03/2023 FACTO R II, DNA HOLLY SIS factor II, DNA analysis Commen t delta Resul t: c.*97 G>A - Detec carola, Heter ozygo us . This resul t is consi stent with a 2- to 4-fol d incre ased risk for venou s throm boemb olism . See Addit ional Clini simona Infor matio n and Comme nts. . Addit ional Clini simona Infor matio n: Venou s throm boemb olism is a multi facto rial disea se influ ence d by briseyda ic, envir onmen william, and circu mstan tial risk facto rs. The c.*97 G>A varia nt in the F2 gene is a briseyda ic risk facto r for venou s throm boemb olism . Heter ozygo us jose daniel ers have a 2- to 4-fol d i ncrea sed risk for venou s throm boemb olism . Homoz ygote s for the c.*97 G> A varia nt are rare. The annua l risk of VTE in homoz ygote s has been rep orted to be 1.1%/ year. Indiv idual s who carry both a c.*97 G>A varia nt in the F2 gene and a c.160 1G>A (p. Arg53 4Gln) varia nt in the F5 gen e (comm only refer red to as Facto r V Leide n) have an appro ximat danita 20- fold incre ased risk for venou s throm boemb olism . Risks are li nick to be even highe r in more compl ex genot ype combi natio ns invol vi ng the F2 c.*97 G>A varia nt and Facto r V Leide n (PMID : [id number]). Ad ditio nal risk facto rs inclu de but are not limit ed to: defic iency of p rotei n C, prote in S, or antit hromb in III, age, male sex, perso nal or f amily histo ry of deep vein throm boemb olism , smoki ng, surge ry, prol onged immob iliza tion, malig nant neopl asm, tamox ifen treat ment, ral oxife ne treat ment, oral contr acept nasim use, hormo ne repla cemen t thera py, and pregn debbie. Manag ement of throm botic risk and throm botic even ts shoul d follo w estab lishe d guide lines and fit the clini simona circu msta nce. This resul t canno t predi ct the occur rence or recur rence of a thro mboti c event . . Comme nts: Briseyda ic couns andriy is recom harry d to discu ss the poten tial c linic al impli catio ns of posit nasim resul ts, as well as recom menda tions for testi ng famil y membe rs. Briseyda ic Coord inato rs are avail able for healt h care provi ders to discu ss resul ts at [phone] ([phone] ). . Test Detai ls: Varia nt holly zed: c.*97 G>A, previ ously refer red to as G2021 0 A . Metho ds/Li mitat ions: DNA holly sis of the F2 gene ([id number]) was perfo rmed by P CR ampli ficat ion follo wed by restr ictio n enzym e holly sis. The d iagno stic sensi tivit y is >99%. Resul ts must be combi gris with clini simona infor matio n for the most accur ate inter preta tion. Molec ular- based testi ng is highl y accur ate, but as in any labor atory test, d iagno stic error s may occur . False posit nasim or false negat nasim resul ts m ay occur for reaso ns that inclu de briseyda ic varia nts, blood trans fusio n s, bone marro w trans plant ation , somat ic or tissu e-spe cific mosai cism , misla beled sampl es, or cat eous repre senta tion of famil y relat ionsh ips. . This test was devel oped and its perfo rmanc e lindy cteri stics deter mined by [employer] rp. It has not been clear ed or appro raquel by the Food and Drug Admin istra tion. . Refer ences : Fernanda Macias, Russ FULTON, Sammy evans R, Radha KING, Lucas in J[facility]; [facility] Pro fessi onal Pract ice and Guide lines Commi ttee. Adden dum: Rubio morley e of Medic al Briseyda ics conse nsus state ment on facto r V Leide n muta tion testi ng. Briseyda Med. 2020Sep 11. doi: 10.10 38/s4 1436- 021-0 110 8-x. PMID: 28163 767. . Randi smith JL. Proth rombi n Throm bophi za. 2005Jan 31 Updat ed 2020Aug 13 . In: Ricki MP, Bhaskar contreras HH, Mary RA, et al., [facility] rs. GeneR bassamw s(R) Inter net . [facility] ([place]): [facility] ; 1992- 2020. Avail able from: https ://ignacio morgan.ncb i.nlm .nih. gov/b ooks/ NBK11 48/ . Rick Macias, Russ FUTLON, Audi X, Amaury B, Spect or EB, Fang P, Rich ards CS; [facility] Labor atory Quali ty Assur ance Commi ttee. Venou s throm da mboli sm labor atory testi ng (fact or V Leide n and facto r II c.*97 G>A), 2018 updat e: a techn ical stand guy of the Rubio Lara ge of Medic al Briseyda ics and Genom ics ([facility] ). Briseyda Med. 2017;2 0(12) :148 9-149 8. doi: 10.[facility]/s4 1436- 018-0 322-z . Epub 2017Apr 13. PMID: 09433 698. Not Available [facility] ([facility]) [address] , [place], [address], 08/03/2023 13:12:27 07/25/19 24 08/03/2023 FACTO R II, DNA HOLLY SIS reviewed by: Tacho camp, PhD Direc tor, Molec ular Briseyda ics Perfo rmed at: [facility] [place] [address] , [place] [address] Lab Direc tor: Yaneth Sullivan [facility] , Phone : [phone] Not Available [facility] ([facility]) [address] , [place], [address], 08/03/2023 13:12:27 10/24/19 24 10/24/2023 CBC AUTO W DIFF WBC 6.9 K/uL 4.0-10 .5 Not Available [facility] ([facility]) [address] , [place], [address], 10/24/2023 16:12:13 10/24/19 24 10/24/2023 CBC AUTO W DIFF RBC 5.7 M/mm3 4.7-6. 1 Not Available [facility] ([facility]) [address] , [place], [address], 10/24/2023 16:12:13 10/24/19 24 10/24/2023 CBC AUTO W DIFF HGB 14.7 gm/dL 13.5-1 8.0 Not Available [facility] ([facility]) [address], [place], [address], 10/24/2023 16:12:13 10/24/19 24 10/24/2023 CBC AUTO W DIFF HCT 46.0 % 42.0-5 2.0 Not Available [facility] ([facility]) [address] , [place], [address], 10/24/2023 16:12:13 10/24/19 24 10/24/2023 CBC AUTO W DIFF MCV 80.4 fL 78-100 Not Available [facility] ([facility]) [address] , [place], [address], 10/24/2023 16:12:13 10/24/19 24 10/24/2023 CBC AUTO W DIFF MCH 25.7 pg 27-31 low Not Available [facility] ([facility]) [address], [place], [address], 10/24/2023 16:12:13 10/24/19 24 10/24/2023 CBC AUTO W DIFF MCHC 32.0 g/dL 32-36 Not Available [facility] ([facility]) [address], [place], [address], 10/24/2023 16:12:13 10/24/19 24 10/24/2023 CBC AUTO W DIFF RDW 14.3 % 11.5-1 4.0 high Not Available [facility] ([facility]) [address] [address], [place], [address], 10/24/2023 16:12:13 10/24/19 24 10/24/2023 CBC AUTO W DIFF platelet count 258 K/uL 150-45 0 Not Available [facility] ([facility]) [address] , [place], [address], 10/24/2023 16:12:13 10/24/19 24 10/24/2023 CBC AUTO W DIFF MPV 9.6 fL 6-9.5 high Not Available [facility] ([facility]) [address], [place], [address], 10/24/2023 16:12:13 10/24/19 24 10/24/2023 CBC AUTO W DIFF neutrophil% 70.1 % 43-65 high Not Available [facility] ([facility]) [address] , [place], [address], 10/24/2023 16:12:13 10/24/19 24 10/24/2023 CBC AUTO W DIFF lymphocyte% 18.4 % 20.5-4 5.5 low Not Available [facility] ([facility]) [address], [place], [address], 10/24/2023 16:12:13 10/24/19 24 10/24/2023 CBC AUTO W DIFF monocyte% 8.7 % 5.5-11 .7 Not Available [facility] ([facility]) [address], [place], [address], 10/24/2023 16:12:13 10/24/19 24 10/24/2023 CBC AUTO W DIFF eosinophil% 2.3 % 0.9-2. 9 Not Available [facility] ([facility]) [address] [place], [address], 10/24/2023 16:12:13 10/24/19 24 10/24/2023 CBC AUTO W DIFF basophil% 0.4 % 0.2-1. 0 Not Available [facility] ([facility]) [address] , [place], [address], 10/24/2023 16:12:13 10/24/19 24 10/24/2023 CBC AUTO W DIFF immature granulocytes % 0.1 % 0.0-0. 8 Not Available [facility] ([facility]) [address] [place], [address], 10/24/2023 16:12:13 10/24/19 24 10/24/2023 CBC AUTO W DIFF nucleated red blood cells % 0.0 % Not Available [facility] ([facility]) [address] [place], [address], 10/24/2023 16:12:13 10/24/19 24 10/24/2023 CBC AUTO W DIFF neutrophil# 4.8 K/uL 2.2-4. 8 Not Available [facility] ([facility]) [address], [place], [address], 10/24/2023 16:12:13 10/24/19 24 10/24/2023 CBC AUTO W DIFF lymphocyte# 1.3 cell/ mcL 1.3-2. 9 Not Available [facility] ([facility]) [address], [place], [address], 10/24/2023 16:12:13 10/24/19 24 10/24/2023 CBC AUTO W DIFF monocyte# 0.6 cell/ mcL 0.3-0. 8 Not Available [facility] ([facility]) [address], [place], [address], 10/24/2023 16:12:13 10/24/19 24 10/24/2023 CBC AUTO W DIFF eosinophil# 0.2 cell/ mcL 0-0.2 Not Available [facility] ([facility]) [address], [place], [address], 10/24/2023 16:12:13 10/24/19 24 10/24/2023 CBC AUTO W DIFF basophil# 0.0 cell/ mcL 0.0-1. 0 Not Available [facility] ([facility]) [address] [place], [address], 10/24/2023 16:12:13 10/24/19 24 10/24/2023 CBC AUTO W DIFF immature gramulocytes # 0.01 K/uL Not Available [facility] ([facility]) [address] [place], [address], 10/24/2023 16:12:13 10/24/19 24 10/24/2023 CBC AUTO W DIFF nucleated red blood cells # 0.00 K/uL Not Available [facility] ([facility]) [address] [place], [address], 10/24/2023 16:12:13 10/24/19 24 10/24/2023 CBC AUTO W DIFF manual differential NO Not Available [facility] ([facility]) [address], [place], [address], 10/24/2023 16:12:13 10/24/19 24 10/24/2023 COMP METAB OLIC PANEL sodium 139 mmol/ L 136-14 5 Not Available [facility] ([facility]) [address], [place], [address], 10/24/2023 16:42:07 10/24/19 24 10/24/2023 COMP METAB OLIC PANEL potassium 4.0 mmol/ L 3.6-5. 0 Not Available [facility] ([facility]) [address] , [place], [address], 10/24/2023 16:42:07 10/24/19 24 10/24/2023 COMP METAB OLIC PANEL chloride 104 mmol/ L 98-107 Not Available [facility] ([facility]) [address] , [place], [address], 10/24/2023 16:42:07 10/24/19 24 10/24/2023 COMP METAB OLIC PANEL carbon dioxide 28.1 mmol/ L 21.0-3 2.0 Not Available [facility] ([facility]) [address] , [place], [address], 10/24/2023 16:42:07 10/24/19 24 10/24/2023 COMP METAB OLIC PANEL anion gap 10.9 Not Available [facility] ([facility]) [address] , [place], [address], 10/24/2023 16:42:07 10/24/19 24 10/24/2023 COMP METAB OLIC PANEL glucose 99 mg/dL 70-120 Not Available [facility] ([facility]) [address], [place], [address], 10/24/2023 16:42:07 10/24/19 24 10/24/2023 COMP METAB OLIC PANEL BUN 16 mg/dL 7-18 Not Available [facility] ([facility]) [address], [place], [address], 10/24/2023 16:42:07 10/24/19 24 10/24/2023 COMP METAB OLIC PANEL creatinine 0.9 mg/dL 0.6-1. 3 Not Available [facility] ([facility]) [address], [place], [address], 10/24/2023 16:42:07 10/24/19 24 10/24/2023 COMP METAB OLIC PANEL glomerular filtration rate >60 mlper min 60- Not Available [facility] ([facility]) [address], [place], [address], 10/24/2023 16:42:07 10/24/19 24 10/24/2023 COMP METAB OLIC PANEL total protein 7.2 g/dL 6.4-8. 2 Not Available [facility] ([facility]) [address], [place], [address], 10/24/2023 16:42:07 10/24/19 24 10/24/2023 COMP METAB OLIC PANEL albumin 3.6 g/dL 3.4-5. 0 Not Available [facility] ([facility]) [address], [place], [address], 10/24/2023 16:42:07 10/24/19 24 10/24/2023 COMP METAB OLIC PANEL globulin 3.6 Not Available [facility] ([facility]) [address], [place], [address], 10/24/2023 16:42:07 10/24/19 24 10/24/2023 COMP METAB OLIC PANEL alb/glob ratio 1.0 0.7-2 Not Available [facility] ([facility]) [address], [place], [address], 10/24/2023 16:42:07 10/24/19 24 10/24/2023 COMP METAB OLIC PANEL calcium 8.6 mg/dL 8.5-10 .5 Not Available [facility] ([facility]) [address], [place], [address], 10/24/2023 16:42:07 10/24/19 24 10/24/2023 COMP METAB OLIC PANEL bilirubin total 0.50 mg/dL 0.10-1 .00 Not Available [facility] ([facility]) [address], [place], [address], 10/24/2023 16:42:07 10/24/19 24 10/24/2023 COMP METAB OLIC PANEL AST (SGOT) 23 U/L 0-37 Not Available [facility] ([facility]) [address], [place], [address], 10/24/2023 16:42:07 10/24/19 24 10/24/2023 COMP METAB OLIC PANEL ALT (SGPT) 39 U/L 0-65 Not Available [facility] ([facility]) [address] [facility], [place], [address], 10/24/2023 16:42:07 10/24/19 24 10/24/2023 COMP METAB OLIC PANEL alk phosphatase 80 U/L 46-116 Not Available [facility] ([facility]) [address], [place], [address], 10/24/2023 16:42:07 10/25/19 24 10/26/2023 SEDIM ENTAT ION RATE- WESTE RGREN sedimentatio n rate-westerg los 5 mm/HR 0-15 Not Available [facility] ([facility]) [address], [place], [address], 11/03/2023 15:11:19 10/25/19 24 10/27/2023 C-CHANA CTIVE PROTE IN, QUANT C-reactive protein, quant 15 mg/L 0-10 above high normal Not Available [facility] ([facility]) [address], [place], [address], 11/03/2023 15:11:21 04/23/20 24 04/23/2024 C-CHANA CTIVE PROTE IN (CRP) C-reactive protein, quant 1.1 mg/dL 0.05-0 .300 high Not Available [facility] ([facility]) [address] [facility], [place], [address], 04/23/2024 10:36:29 04/23/20 24 04/23/2024 SED RATE sed rate auto 4 0-15 Not Available [facility] ([facility]) [address] [facility], [place], [address], 04/23/2024 10:54:51 11/20/19 24 11/20/2023 arti melgar x US lwr RT ext [facility] [address] [place] [address] Phone: Fax: Name: GAYATHRI DENNIS Exam Date: 024 : 1979 Age 43 years Gender : M Access ion: [id number] Physic lou: LUCI BRADFORD Facili ty: [facility] Facili ty HSV: Outpat ient Exam: VENOUS DUPLEX US LWR RT EXT DUPLEX VENOUS SONOGR APHY OF THE RIGHT LOWER EXTREM ITY HISTOR Y: Right leg pain and swelli ng FINDIN GS: Multip le transv erse and longit udinal scans were perfor med of the femoro poplit eal deep venous system , with augmen tation and compre ssion maneuv ers. Status post below the knee amputa tion. Normal phasic flow was noted in the visual ized deep venous system . No intral uminal increa sed echoge nicity is noted to sugges t thromb us. There is normal compre ssion and augmen tation of the venous struct ures. No abnorm al venous collat erals are seen. IMPRES CHRISTIE: No eviden ce of deep venous thromb osis of the right lower extrem ity. Dictat ed By: oJse Luciano Transc ribed By: Jose Sebastian Transc ribed On: 11:51 AM Electr onical ly signed by: Jose Luciano Thank you for referr ing GAYATHRI DENNIS to [facility]. Legall y authen ticate d by YANELIS DÍAZ 11-19 11:51: 02 CC'ed Logic: Orderi ng Provid er: SPENCER O[facility]NA Attend ing Provid er: SP[facility]NA Referr ing Provid er: SP[facility]NA Admitt ing Provid er: SPENCER OSUNA [address] - Physical Therapy [address] [facility], [place], [address], 11/20/2023 12:58:54 11/20/19 24 11/20/2023 CT, angio gram, chest , w/ contr ast [facility] [address] [place] [address] Phone: Fax: Name: GAYATHRI DENNIS Exam Date: : 1979 Age 43 years Gender : M Access ion: [id number] Physic lou: LUCI BRADFORD Facili ty: [facility] Facili ty HSV: Outpat ient Exam: CTA CHEST PE EXAM: CT PULMON NATALY ANGIOG LOUISE INDICA TION: SOB TECHNI QUE: Helica l CT chest with IV contra st, optimi zed for visual izatio n of pulmon nataly arteri es was perfor med. Axial images were obtain ed from the lung apex to the mid abdome n by comput ed tomogr aphy. This study was perfor med with techni ques to keep radiat ion doses as low as reason ably achiev able, (ALARA ). Indivi dualiz ed dose reduct ion techni ques using automa carola exposu re contro l or adjust ment of mA and/or kV accord ing to the patien t size were employ ed. Macdonald l and sagitt al reform ats was perfor med. COMPAR MIRANDA: None FINDIN GS: CHEST: Pulmon nataly Angiog louise: Inadeq uate opacif icatio n of the subseg mental pulmon nataly arteri es. No obviou s acute pulmon nataly embolu s. Thyroi d: Small hypode nse thyroi d nodule s.. Heart: No cardio megaly . No perica rdial effusi on. Vascul ar: Thorac ic aorta is normal calibe r. No macdonald ry artery calcif icatio ns. Lymph Nodes: No medias tinal or hilar lympha denopa thy. No axilla ry or suprac lavicu lar lympha denopa thy. Lungs/ Airway s: Mild centra l bronch ial wall thicke phan. Streak y bilate ral atelec tasis. Small nodula r opacit ies in the right lower lobe measur ing up to 9 mm may be infect ious. Mosaic attenu ation of the lungs may sugges t underl jody air-tr apping . No pleura l effusi on. No pneumo thorax . Airway s are patent . Esopha prema: Unrema rkable . Upper Abdome n: No acute upper abdome n findin gs. Bones: No suspic ious lesion IMPRES CHRISTIE: No defini te acute pulmon nataly embolu s. Mild bronch itis with right lower lobe nodula r opacit ies measur ing up to 9 mm which may be infect ious. Dictat ed By: Jose Luciano Transc ribed By: Jose Sebastian Transc ribed On: 12:06 PM Legall y authen ticate d by YANELIS DÍAZ 2023-11-19 12:06: 58 Electr onical ly signed by: Jose Luciano 5/13/2 024 Thank you for referr GAYATHRI Rodríguez to [facility]. Legall y authen ticate d by YANELIS CRENSHAWFouzia Colleen IVO 2023-0 11-19 12:06: 58 CC'ed Logic: Orderi ng Provid er: [facility]NA Attend ing Provid er: [facility]NA Referr ing Provid er: SP[facility]NA Admitt ing Provid er: SP[facility]ER O[facility]NA [email or web address] [facility] [address], [place], [address], 11/21/2023 16:18:56 Result Notes None recorded. Problems Name Problem SNOMED Code Status Onset Date Resolution Date Notes Provider Name and Address Organization Details Recorded Time Methicillin resistant Staphylococ cus aureus infection 790890843 Active 2023 Amy jaramillo, [place] - [facility] [place] [facility] [place] 4 10:16:00 High risk medication monitoring indicated [id number] 9103 Active 2023 Amy jaramillo, [place] - [facility] [place] [facility] [place] 4 10:16:36 Problem Notes None recorded. Procedures Surgical History Date Name Laterality Status Provider Name and Address Organization Details Recorded Time 03/26/20 24 Venipuncture cancelled Luci Ag PA-C [address], [place], [address], [place] [facility] [place] [facility] [place] 03/18/2024 14:56:10 10/24/19 24 Venipuncture completed Luci Ag PA-C [address], [place], [address], [place] [facility] [place] 10/23/2023 10:53:19 07/25/19 24 Venipuncture completed Sarah SANZ - [facility] [place] [facility] [place] 07/25/2023 14:41:20 amputation of lower limb completed Sarah SANZ - [facility] [place] [facility] [place] 07/25/2023 13:57:05 Imaging Results Imaging Date Name Status LastModified by Terrell toscano Details LastModified Time 11/20/2023 venous duplex US lwr RT ext completed [email or web address] [facility] [address], [place], [address], 11/20/2023 12:58:54 11/20/2023 CT, angiogram, chest, w/ contrast completed [email or web address] [facility] [address], [place], [address], 11/21/2023 16:18:56 Procedure Notes None recorded. Medical Equipment None Reported. Allergies Allergen ID Allergen Name Allergen Category Reaction Reaction Severity Criticality Documentation Date Start Date Code Code System Note Provider Name and Address Organization Details Recorded Time 005135 cefdinir medicatio n Not available Not available Not available 06/02/2023 79113 RxNorm Isabel Kay [facility] & [place] 3 10:06:00 Medications Name Sig Start Date Stop Date Status Note LastModified by Organization Details LastModified Time amantadine HCl 100 mg tablet 07/25 completed Not Available Not Available Not Available celecoxib 200 mg capsule 07/25 completed Not Available Not Available Not Available fluconazole 100 mg tablet 07/25 completed Not Available Not Available Not Available atorvastati n 40 mg tablet active Not Available Not Available Not Available methocarbam ol 500 mg tablet 07/25 completed Not Available Not Available Not Available gabapentin 600 mg tablet 07/25 completed Not Available Not Available Not Available doxycycline hyclate 100 mg capsule TAKE 1 CAPSULE BY MOUTH TWICE DAILY UNTIL ALL TAKEN FOR INFECTION active Not Available Not Available No t Available oxybutynin chloride ER 10 mg tablet,exte nded release 24 hr active Not Available Not Available Not Available lisinopril 20 mg tablet active Not Available Not Available Not Available sulfamethox azole 800 mg-trimetho prim 160 mg tablet 07/25 completed Not Available Not Available Not Available ondansetron 8 mg disintegrat ing tablet 07/25 completed Not Available Not Available Not Available triamcinolo ne acetonide 0.025 % topical cream 07/25 completed Not Available Not Available Not Available tamsulosin 0.4 mg capsule active Not Available Not Available Not Available gabapentin 800 mg tablet 07/25 completed Not Available Not Available Not Available linezolid 600 mg tablet 07/25 completed Not Available Not Available Not Available cephalexin 500 mg capsule 07/25 completed Not Available Not Available Not Available oseltamivir 75 mg capsule TAKE 1 CAPSULE BY MOUTH TWICE DAILY 07/25 completed Not Available Not Available Not Available oxybutynin chloride ER 5 mg tablet,exte nded release 24 hr active Not Available Not Available Not Available gabapentin 300 mg capsule 07/25 completed Not Available Not Available Not Available sertraline 25 mg tablet active Not Available Not Available Not Available enoxaparin 150 mg/mL subcutaneou s syringe INJECT THE CONTENTS OF 1 SYRINGE (150MG/ML ) SUBCUTANE OUSLY EVERY TWELVE HOURS FOR 3 DAYS 07/25 completed Not Available Not Available Not Available morphine ER 15 mg tablet,exte nded release 07/25 completed Not Available Not Available Not Available gabapentin 100 mg capsule 07/25 completed Not Available Not Available Not Available cefuroxime axetil 500 mg tablet 07/25 completed Not Available Not Available Not Available levofloxaci n 750 mg tablet 07/25 completed Not Available Not Available Not Available methylpredn isolone 4 mg tablets in a dose pack 07/25 completed Not Available Not Available Not Available ondansetron 4 mg disintegrat ing tablet 07/25 completed Not Available Not Available Not Available fluticasone propionate 50 mcg/actuati on nasal spray,suspe nsion active Not Available Not Available Not Available sertraline 50 mg tablet active Not Available Not Available Not Available amoxicillin 875 mg-potassiu m clavulanate 125 mg tablet active Not Available Not Available Not Available Ventolin HFA 90 mcg/actuati on aerosol inhaler active Not Available Not Available Not Available oxycodone 5 mg tablet 07/25 completed Not Available Not Available Not Available hydroxyzine pamoate 25 mg capsule 07/25 completed Not Available Not Available Not Available escitalopra m 10 mg tablet 07/25 completed Not Available Not Available Not Available ezetimibe 10 mg tablet active Not Available Not Available Not Available nitrofurant oin monohydrate /macrocryst als 100 mg capsule active Not Available Not Available Not Available omega-3 acid ethyl esters 1 gram capsule active Not Available Not Available Not Available hydrochloro thiazide 12.5 mg tablet active Not Available Not Available Not Available FeroSul 325 mg (65 mg iron) tablet active Not Available Not Available Not Available [facility] 10 billion cell-200 mg sprinkle capsule active Not Available Not Available Not Available Xarelto 15 mg tablet 07/25 completed Not Available Not Available Not Available Xarelto 20 mg tablet 07/25 completed Not Available Not Available Not Available Eliquis 5 mg tablet TAKE 2 TABLETS BY MOUTH TWICE DAILY EVERY 12 HOURS active Not Available Not Available No t Available Vitals Date Recorded Body temperature Oxygen saturation Oxygen saturation in Arterial blood by Pulse oximetry Heart rate Body weight Heart rate Provider Name and Address Organization Details Last Updated DateTime 4 98.4 [degF] 96 % 96 % 81 /min 589490. 75 g 81 /min Isabel Abdullahiey [facility] & [place] 4 08:59:33 Date Recorded Body weight Body temperature Heart rate Oxygen saturation Oxygen saturation in Arterial blood by Pulse oximetry Systolic blood pressure Diastolic blood pressure Provider Name and Address Organization Details Last Updated DateTime 4 837443. 53 g 97.8 [degF] 89 /min 95 % 95 % 134 mm[Hg] 82 mm[Hg] [facility] [place] 4 13:54:07 Date Recorded Body height Body mass index (BMI) Body weight Body temperature Heart rate Oxygen saturation Oxygen saturation in Arterial blood by Pulse oximetry Systolic blood pressure Diastolic blood pressure Provider Name and Address Organization Details Last Updated DateTime 4 182.88 cm 43.3 kg/m2 486749. 97 g 98 [degF] 95 /min 96 % 96 % 137 mm[Hg] 92 mm[Hg] [facility] [place] 4 14:44:48 Date Recorded Body height Body mass index (BMI) Body weight Body temperature Oxygen saturation Oxygen saturation in Arterial blood by Pulse oximetry Heart rate Systolic blood pressure Diastolic blood pressure Provider Name and Address Organization Details Last Updated DateTime 4 182.88 cm 43.2 kg/m2 214100. 81 g 98.6 [degF] 95 % 95 % 86 /min 134 mm[Hg] 84 mm[Hg] Amy Jay [facility] & [place] 4 08:59:12 Date Recorded Body height Body mass index (BMI) Body weight Body temperature Oxygen saturation Oxygen saturation in Arterial blood by Pulse oximetry Heart rate Systolic blood pressure Diastolic blood pressure Provider Name and Address Organization Details Last Updated DateTime 4 182.88 cm 42.9 kg/m2 280078. 19 g 98 [degF] 94 % 94 % 70 /min 140 mm[Hg] 80 mm[Hg] Kalie Gibbs [facility] & [place] 4 09:24:00 Social History Question Answer Notes LastModified by Organizat ion Details LastModified Time Tobacco Smoking Status Never Smoker Isabel jaramillo [facility] & [place] 06/02/2023 10:06:28 What Is Your Level Of Alcohol Consumption? Occasional [email or web address] Information not available 07/25/2023 Do You Use Any Illicit Or Recreational Drugs? No [email or web address] Information not available 07/25/2023 Sex: Unknown Functional Status None recorded. Mental Status None recorded. Family History Nothing Reported. Medical History No medical history recorded. Immunizations Vaccine Type Date Status Note Provider Nam e and Address Organization Details Recorded Time Td (adult), 2 Lf tetanus toxoid, preservative free, adsorbed 6 completed Sarah jaramillo [facility] & [place] 07/25/2023 13:54:15 Past Encounters Encounter ID Performer Location Encounter Start Date Encounter Closed Date Diagnosis/Indication Diagnosis SNOMED-CT Code Diagnosis ICD10 Code Diagnosis Note [id number] Randy Torres MD [facility] [address] [place] [address] 06/02/2023 09:54:50 06/02/2023 10:26:43 Osteomyelitis 21671705 M86.9 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 This infection appears to be very well-contr olled. There is no sign of uncontroll ed infection on exam. He is going to complete the 6 week course of daptomycin . The planned stop date is 06/29. I am going to repeat his basic laboratory work, inflammato ry markers, and the total CK today. Influenza caused by Influenza A virus 043907571 J09.X2 Resolved.. No further oseltamivi r needed. High risk medication monitoring indicated [id number] 1518006 Z76.89 Related to the daptomycin . I will check a total CK and continue to follow serial levels of this enzyme to make sure he develops no rhabdomyol ysis. 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 This infection appears to be very well-contr olled. There is no sign of uncontroll ed infection on exam. His inflammato ry markers have improved nicely. He is going to complete the 6 week course of daptomycin . The planned stop date is 06/29. I will continue to monitor all of his laboratory work closely, including the total CK level. He will follow up with me on 06/30. If he is doing well at that time, I will remove his PICC line and stop the daptomycin . I plan to start consolidat ion doxycyclin e at that time. Methicilli n resistant Staphylococcus aureus infection 258633270 A49.02 As above High risk medication monitoring indicated [id number] 1093633 Z76.89 This is related to the daptomycin . I will continue to monitor his total CK levels closely. 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 On exam, there is no sign of any persisting infection. His inflammato ry markers are essentiall y normal. At this time, I am going to stop his daptomycin ; he is completed the planned 6-week course. I will switch him to consolidat ion/suppre ssive doxycyclin e 100 mg p.o. b.i.d. to prevent any recurrence . 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 He will follow up with me again in 1 week. I removed his PICC line today. I counseled him extensivel y about the side effects of doxycyclin e. I counseled him in particular about the risk of phototoxic ity and the proper precaution s to take to prevent such. I will plan to monitor his LFTs closely on doxycyclin e. I will repeat his LFTs again next week. Methicilli n resistant Staphylococcus aureus infection [id number] A49.02 As above [id number] Randy Torres MD [facility] Infectiou s Disease [facility] [place] [address] 07/06/2023 09:38:06 07/06/2023 10:00:10 Osteomyelitis [id number] M86.9 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. He was treated with 6 weeks of intravenou s daptomycin and his infection resolved. At his last visit last week, I placed him on suppressiv e doxycyclin e 100 mg p.o. b.i.d. due to the risk of recurrence . However, he is having significan t gastrointe stinal side effects due to the doxycyclin e. Consequent ly, I am going to lower the dose to 100 mg per day. I want him to persistent ly take it with food. I will have him try this for 1 week. If he still can not tolerate it, I will switch to another suppressiv e antibiotic likely Bactrim DS. I am going to repeat his basic laboratory work and inflammato ry markers today. Methicilli n resistant Staphylococcus aureus infection [id number] A49.02 As above Adverse re action to drug [id number] T50.905A Related to doxycyclin e. This is gastrointe stinal in nature. I will check his liver function testing to make sure he is not developing any hepatotoxi city. I will drop the dose to 100 mg per day. I want him to continue to take it with food. I will re-evaluat e next week. [id number] Randy Torres MD [facility] Infectiou s Disease [address] [place] [address] 07/12/2023 08:53:12 07/12/2023 09:54:35 Osteomyelitis [id number] M86.9 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. He was treated with 6 weeks of intravenou s daptomycin and his infection resolved. He is currently on suppressiv e doxycyclin e.. Initially, he was on 100 mg twice daily, but did not tolerate this due to gastrointe stinal intoleranc e. On 100 mg daily, he is tolerating the doxycyclin e. The plan will be to continue doxycyclin e 100 mg p.o. daily for the foreseeabl e future. Since his recent laboratory work looked fine last, I will plan to repeat his laboratory work again at his next visit. He will return to clinic in 1 month. Methicilli n resistant Staphylococcus aureus infection [id number] A49.02 As above [id number] Luci Ag PA-C [facility] [address] [place] [address] 07/25/2023 13:39:19 07/26/2023 06:33:52 Deep venous thrombosis [id number] I82.409 Patient has a history of osteomyeli tis. 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 He was started on Xarelto and took it for a few months. He discontinu ed Xarelto. 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 He developed a right DVT and bilateral PEs after the surgery. He was started on Eliquis and continues on Eliquis 5 mg 1 tab p.o. b.i.d.. He is tolerating without trouble. He does not smoke. Patient has been sedentary because of the surgery but is typically active. Denies any recent travel. Denies any recent COVID symptoms. Denies any family history of blood clots. Labs performed when patient was hospitaliz ed at [facility] on May 26, 2023 with normal antithromb in 3 activity. No evidence of factor 5 Leiden mutation. Discussed with patient will order additional labs for further evaluation acquired hypercoagu lable disorder today. Discussed will likely continue on least the prophylact ic dose of Eliquis lifelong due to separate occurrence s of blood clots. Pulmonary embolism 29164 003 I26.99 Patient has a history of osteomyeli tis. 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 He was started on Xarelto and took it for a few months. He discontinu ed Xarelto. 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 He developed a right DVT and bilateral PEs after the surgery. He was started on Eliquis and continues on Eliquis 5 mg 1 tab p.o. b.i.d.. He is tolerating without trouble. He does not smoke. Patient has been sedentary because of the surgery but is typically active. Denies any recent travel. Denies any recent COVID symptoms. Denies any family history of blood clots. Discussed with patient will order additional labs for further evaluation acquired hypercoagu lable disorder today. Discussed will likely continue on least the prophylact ic dose of Eliquis lifelong due to separate occurrence s of blood clots. Anticoagulant therapy 18 [id number] Z79.01 Patient continues on Eliquis 5 mg 1 tab p.o. b.i.d.. He is tolerating without trouble. Discussed will likely continue on least the prophylact ic dose of Eliquis lifelong due to separate occurrence s of blood clots. [id number] Luci Ag PA-C [facility] [address] [place] [address] 10/24/2023 14:29:27 10/24/2023 15:33:34 Deep venous thrombosis [id number] I82.409 Patient has a history of osteomyeli tis. 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 He was started on Xarelto and took it for a few months. He discontinu ed Xarelto. 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 He developed a right DVT and bilateral PEs after the surgery. He was started on Eliquis and continues on Eliquis 5 mg 1 tab p.o. b.i.d.. He is tolerating without trouble. He does not smoke. Patient has been sedentary because of the surgery but is typically active. Denies any recent travel. Denies any recent COVID symptoms. Denies any family history of blood clots. Labs performed when patient was hospitaliz ed at [facility] on May 26, 2023 with normal antithromb in 3 activity. No evidence of factor 5 Leiden mutation. 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 Normal protein C and S. Factor 8 activity 159%. Discussed will continue on least the prophylact ic dose of Eliquis lifelong due to separate occurrence s of blood clots. Will follow up venous duplex of lower extremity and chest CTA to make sure no evidence of embolism before reducing Eliquis dose to 2.5 mg b.i.d. Will follow up labs today. Pulmonary embolism 71120 003 I26.99 Patient has a history of osteomyeli tis. 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 He was started on Xarelto and took it for a few months. He discontinu ed Xarelto. 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 He developed a right DVT and bilateral PEs after the surgery. He was started on Eliquis and continues on Eliquis 5 mg 1 tab p.o. b.i.d.. He is tolerating without trouble. He does not smoke. Patient has been sedentary because of the surgery but is typically active. Denies any recent travel. Denies any recent COVID symptoms. Denies any family history of blood clots. 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 Normal protein C and S. Factor 8 activity 159%. Discussed will continue on least the prophylact ic dose of Eliquis lifelong due to separate occurrence s of blood clots. Will follow up venous duplex of lower extremity and chest CTA to make sure no evidence of embolism before reducing Eliquis dose to 2.5 mg b.i.d. Will follow up labs today. Anticoagulant therapy 18 [id number] Z79.01 Patient continues on Eliquis 5 mg 1 tab p.o. b.i.d.. He is tolerating without trouble. Discussed will continue on least the prophylact ic dose of Eliquis lifelong due to separate occurrence s of blood clots. Will follow up venous duplex of lower extremity and chest CTA to make sure no evidence of embolism before reducing Eliquis dose to 2.5 mg b.i.d. 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 He was treated with 6 weeks of intravenou s daptomycin and his infection resolved. He has been on suppressiv e doxycyclin e 100 mg per day for the past 4 months. Based on his history and exam from today, I think his infection remains suppressiv e. I am going to check his inflammato ry markers again today. The plan will be at least 1 year of suppressiv e doxycyclin e. Refills were sent today. He will follow up in 6 months. Methicilli n resistant Staphylococcus aureus infection [id number] A49.02 As above High risk medication monitoring indicated [id number] Z76.89 This is related to the chronic suppressiv e doxycyclin e. I reviewed his liver function testing from yesterday. There is no evidence of any hepatotoxi city. I will continue to monitor this at each visit. I also counseled him about the risk of photosensi tivity with doxycyclin e. 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 He was treated with 6 weeks of intravenou s daptomycin and his infection resolved. He has been on suppressiv e doxycyclin e 100 mg per day for the past year. On exam, there is absolutely no evidence of any persistent or recurrent infection. At this time, I am going to discontinu e his suppressiv e therapy and monitor him if his inflammato ry markers from today appear okay. He will follow up with me in 1 month. Methicilli n resistant Staphylococcus aureus infection [id number] A49.02 As above Health Concerns Section Related Observation LastModified by Organization Detai ls LastModified Time None Recorded Concern Status LastModified by Organization Details LastModified Time None Recorded Advance Directives Directive None Recorded Payers Encounter Date Sequence Insurance Name Policy Number Policy Brantley Covered Member ID Brantley Member ID Guarantor Name 07/12/2023 1 [place] [employer] [place] [id number] Won Dennis [id number] Won Lucascker 07/25/2023 1 [place] [id number] Won Dennis [id number] Won Lucascker 10/24/2023 1 [employer] CLAIMS OFFICE Won Lucascker [id number] Won Sonny 10/25/2023 1 [employer] CLAIMS OFFICE Won Lucascker [id number] Won Lucascker 04/23/2024 1 [employer] CLAIMS OFFICE Won Lucascker [id number] Won Lucascker Notes Date Note Type Note Provider Name and Address Organization Details Recorded Time 07/12/2023 text/html This is a 42-yea r-old white male following up with dc for 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 Since his debridement, he completed 6 weeks of intravenous daptomycin. For the past couple weeks, he has been on suppressive doxy cycling. Initially, this was at 100 mg p.o. b.i.d.. However, he did not tolerate this dose. Consequently, I loaded to 100 mg daily. He is doing better with doxycycline 100 mg daily. He is not had any more nausea or vomiting. No more stomach upset. Other than some pain deep in the bone over his stump, he notes no other issues. The incision remains completely healed. Randy Torres MD [address], [place], [address], [place] [facility] [place] 07/12/2023 09:50:44 07/25/2023 text/html 43-year-old male presents for evaluation of DVT and PE. Patient has a history of osteomyelitis. 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 He was started on Xarelto and took it for a few months. He discontinued Xarelto. 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 He developed a right DVT and bilateral PEs after the surgery. He was started on Eliquis and continues on Eliquis 5 mg 1 tab p.o. b.i.d.. He is tolerating without trouble. He does not smoke. Patient has been sedentary because of the surgery but is typically active. Denies any recent travel. Denies any recent COVID symptoms. Denies any family history of blood clots. Labs performed when patient was hospitalized at [facility] on May 26, 2023 with normal antithrombin 3 activity. No evidence of factor 5 Leiden mutation. Discussed with patient will order additional labs for further evaluation acquired hypercoagulable disorder today. Discussed will likely continue on least the prophylactic dose of Eliquis lifelong due to separate occurrences of blood clots. Luci Ag PA-C [address] , [place], [address], [place] [facility] [place] 07/25/2023 15:32:35 10/24/2023 text/html 43-year-old male presents for evaluation of DVT and PE. Patient has a history of osteomyelitis. 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 He was started on Xarelto and took it for a few months. He discontinued Xarelto. 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 He developed a right DVT and bilateral PEs after the surgery. He was started on Eliquis and continues on Eliquis 5 mg 1 tab p.o. b.i.d.. He is tolerating without trouble. He does not smoke. Patient has been sedentary because of the surgery but is typically active. Denies any recent travel. Denies any recent COVID symptoms. Denies any family history of blood clots. Labs performed when patient was hospitalized at [facility] on May 26, 2023 with normal antithrombin 3 activity. No evidence of factor 5 Leiden mutation. Hypercoagulable evaluation performed on July 25, 2023 with heterozygous factor 2 mutation. Normal protein C and S. Factor 8 activity 159%. Discussed will continue on least the prophylactic dose of Eliquis lifelong due to separate occurrences of blood clots. Will follow up venous duplex of lower extremity and chest CTA to make sure no evidence of embolism before reducing Eliquis dose to 2.5 mg b.i.d. Will follow up labs today. 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 Since his debridement, he completed 6 weeks of intravenous daptomycin. For the past 4 months, he has been on suppressive doxycycline 100 mg per day. He is here for follow up on this medication. His BKA stump remains fully healed. He has a prosthesis in place. Denies any side effects with the doxycycline, including no nausea, vomiting, diarrhea, rashes. He is doing well. 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 Since his debridement, he completed 6 weeks of intravenous daptomycin and 1 year of suppressive doxycycline. He is remained infection free. His stump is fully healed. No fever. No other issues. He is tolerating the doxycycline well. Randy Torres MD [address], [place], [address], [facility] 04/23/2024 09:31:22
== END 2024-10-21 23:59 | disposition home or self-care (01) ==
LOC: LAB.DROPOF 10-22 15:06
PROVIDERS: PCP Nurse Practitioner Family; Visit Provider Nurse Practitioner Family
DX: E16.2 Hypoglycemia, unspecified (principal); D64.9 Anemia, unspecified; R53.83 Other fatigue; E78.49 Other hyperlipidemia; E66.01 Morbid (severe) obesity due to excess calories; G47.33 Obstructive sleep apnea (adult) (pediatric); N52.9 Male erectile dysfunction, unspecified; I10 Essential (primary) hypertension
CPT/HCPCS: 80053; 80061; 81001; 82306; 82607; 82728; 83036; 83540; 83550; 84156; 84439; 84443; 85025; 87086

== ENCOUNTER 2024-10-31 13:27 | Outpatient (CLI) | payer MEDICAID, SELFPAY ==
--- NOTE | 2024-10-31 13:30 | CT_ITS ---
FINAL REPORT TECHNIQUE: Axial imaging of the chest is obtained after the administration of contrast. 3-D MIP reformatted images were also obtained and reviewed per PE protocol. CLINICAL HISTORY: Dyspnea/PE COMPARISON: 03/22/2024 FINDINGS: The pulmonary arteries are well filled. There is no evidence of pulmonary embolus. There is no aortic dissection. Heart size is normal. There is no mediastinal, hilar, or axillary lymphadenopathy. Again identified are small nodular opacities in the medial right lower lobe. There is no new evidence of consolidation. There is no pleural or pericardial effusion. Limited evaluation of the upper abdomen is without acute abnormality. No acute osseous abnormality. IMPRESSION: No evidence of pulmonary embolism or aortic dissection. Stable small nodule opacities in the medial right lower lobe, favor postinfectious or inflammatory. Recommend continued follow-up in 6 months to evaluate for stability. Reviewed, Interpreted and Dictated by Fátima Camilo MD Transcribed by Madiha Ambrosio Authenticated and . [facility]
--- OUTSIDE RECORDS SUMMARY | 2024-10-31 13:30 | XMS_ITS | Data Portability ---
Author Organization [facility] LOPEZ [place] ADMIN Address [address] [place] [id number] Care Team Providers Care Political Organizer Name Role Phone VIDYA KNOWLESIAN Primary Care Provider Assessment No assessment recorded. Plan of Treatment Reminders Order Date Submit Date Provider Last Modified By Organization Details Last Modified Time Details Appointments None recorded. Lab C-reactive protein, quantitativ e, serum or plasma [address] [facility], [address] [facility], [place], [address], 4 17:36:31 ESR (erythrocyt e sedimentati on rate), blood 2023 024 [place] [id number] [facility], [address] [facility], [place], [address], 4 17:36:31 C-reactive protein, quantitativ e, serum or plasma 2023 024 [facility], [address], [address], [place], [address], 4 08:08:32 ESR (erythrocyt e sedimentati on rate), blood 2023 024 [email or web address] d42 [facility], [address], [address], [place], [address], 4 08:08:32 CBC w/ auto diff 2023 024 [facility], [address], [place], [address], 4 16:12:13 CMP, serum or plasma 2023 024 [facility], [address] [facility], [place], [address], 4 16:42:07 CBC w/ auto diff 2023 024 [facility], [address] [facility], [place], [address], 4 15:22:25 CMP, serum or plasma 2023 024 [facility], [address] [facility], [place], [address], 4 16:32:05 prothrombin (factor II) [id number] mutation, blood 2023 024 [email or web address] 6 [facility], [address] , [place], [address], 4 08:55:21 factor VIII activity, plasma 2023 024 [email or web address] 6 [facility], [address] , [place], [address], 4 08:26:01 protein C + protein S, functional panel, plasma 2023 024 [email or web address] 6 [facility], [address] , [place], [address], 4 08:26:02 Referral None recorded. Procedures None recorded. Surgeries None recorded. Imaging None recorded. Medication Orders doxycycline hyclate 100 mg capsule 2023 024 [facility], [address] [facility], [address], [place], [address], 4 09:18:27 Patient TargetsNo targets recorded. Patient InstructionsNo instructions recorded. Reason for Referral None Reported. Results Created Date Observation Date Name Description Value Unit Range Abnormal Flag Note LastModifiedBy Organization Detail LastModifiedTime 07/06/20 23 07/07/2023 COMP. METAB OLIC PANEL (14) glucose 92 mg/dL 70-99 Not Available [facility] ([facility]) [address] [place], [address], 07/07/2023 13:08:40 07/06/20 23 07/07/2023 COMP. METAB OLIC PANEL (14) BUN 18 mg/dL 6-24 Not Available [facility] ([facility]) [address] [place], [address], 07/07/2023 13:08:40 07/06/20 23 07/07/2023 COMP. METAB OLIC PANEL (14) creatinine 0.85 mg/dL 0.76-1 .27 Not Available [facility] ([facility]) [address] [place], [address], 07/07/2023 13:08:40 07/06/20 23 07/07/2023 COMP. METAB OLIC PANEL (14) eGFR 111 mL/mi n/1.7 3 >59 Not Available [facility] ([facility]) [address] [place], [address], 07/07/2023 13:08:40 07/06/20 23 07/07/2023 COMP. METAB OLIC PANEL (14) BUN/creatini ne ratio 21 9-20 above high normal Not Available [facility] ([facility]) [address] [place], [address], 07/07/2023 13:08:40 07/06/20 23 07/07/2023 COMP. METAB OLIC PANEL (14) sodium 140 mmol/ L 134-14 4 Not Available [facility] ([facility]) [address] [place], [address], 07/07/2023 13:08:40 07/06/20 23 07/07/2023 COMP. METAB OLIC PANEL (14) potassium 4.1 mmol/ L 3.5-5. 2 Not Available [facility] ([facility]) [address] [place], [address], 07/07/2023 13:08:40 07/06/20 23 07/07/2023 COMP. METAB OLIC PANEL (14) chloride 105 mmol/ L 96-106 Not Available [facility] ([facility]) [address] [facility], [address], 07/07/2023 13:08:40 07/06/20 23 07/07/2023 COMP. METAB OLIC PANEL (14) carbon dioxide, total 22 mmol/ L Not Available [facility] ([facility]) [address] [place], [address], 07/07/2023 13:08:40 07/06/20 23 07/07/2023 COMP. METAB OLIC PANEL (14) calcium 8.9 mg/dL 8.7-10 .2 Not Available [facility] ([facility]) [address] [facility], [address], 07/07/2023 13:08:40 07/06/20 23 07/07/2023 COMP. METAB OLIC PANEL (14) protein, total 7.3 g/dL 6.0-8. 5 Not Available [facility] ([facility]) [address] [facility], [address], 07/07/2023 13:08:40 07/06/20 23 07/07/2023 COMP. METAB OLIC PANEL (14) albumin 4.3 g/dL 4.1-5. 1 Not Available [facility] ([facility]) [address] [facility], [place], [address], 07/07/2023 13:08:40 07/06/20 23 07/07/2023 COMP. METAB OLIC PANEL (14) globulin, total 3.0 g/dL 1.5-4. 5 Not Available [facility] ([facility]) [address] [facility], [address], 07/07/2023 13:08:40 07/06/20 23 07/07/2023 COMP. METAB OLIC PANEL (14) A/G ratio 1.4 1.2-2. 2 Not Available [facility] ([facility]) [address] [facility] [place], [address], 07/07/2023 13:08:40 07/06/20 23 07/07/2023 COMP. METAB OLIC PANEL (14) bilirubin, total 0.3 mg/dL 0.0-1. 2 Not Available [facility] ([facility]) [address] [facility], [place], [address], 07/07/2023 13:08:40 07/06/20 23 07/07/2023 COMP. METAB OLIC PANEL (14) alkaline phosphatase 85 IU/L 44-121 Not Available [facility] ([facility]) [address] [facility], [place], [address], 07/07/2023 13:08:40 07/06/20 23 07/07/2023 COMP. METAB OLIC PANEL (14) AST (SGOT) 24 IU/L 0-40 Not Available [facility] ([facility]) [address] [facility] [place], [address], 07/07/2023 13:08:40 07/06/20 23 07/07/2023 COMP. METAB OLIC PANEL (14) ALT (SGPT) 25 IU/L 0-44 Not Available [facility] ([facility]) [address] [facility], [place], [address], 07/07/2023 13:08:40 07/06/20 23 07/07/2023 SEDIM ENTAT ION RATE- WESTE RGREN sedimentatio n rate-westerg los 28 mm/HR 0-15 above high normal Not Available [facility] ([facility]) [address] [facility], [place], [address], 07/07/2023 13:08:42 07/06/20 23 07/07/2023 C-CHANA CTIVE PROTE IN, QUANT C-reactive protein, quant 11 mg/L 0-10 above high normal Not Available [facility] ([facility]) [address] [facility], [place], [address], 07/07/2023 13:08:43 07/25/19 24 07/25/2023 CBC AUTO W DIFF WBC 6.7 K/uL 4.0-10 .5 Not Available [facility] ([facility]) [address] [facility], [place], [address], 07/25/2023 15:22:25 07/25/19 24 07/25/2023 CBC AUTO W DIFF RBC 5.7 M/mm3 4.7-6. 1 Not Available [facility] ([facility]) [address] [facility], [place], [address], 07/25/2023 15:22:25 07/25/19 24 07/25/2023 CBC AUTO W DIFF HGB 14.8 gm/dL 13.5-1 8.0 Not Available [facility] ([facility]) [address] [facility], [place], [address], 07/25/2023 15:22:25 07/25/19 24 07/25/2023 CBC AUTO W DIFF HCT 45.4 % 42.0-5 2.0 Not Available [facility] ([facility]) [address] [facility], [place], [address], 07/25/2023 15:22:25 07/25/19 24 07/25/2023 CBC AUTO W DIFF MCV 79.6 fL 78-100 Not Available [facility] ([facility]) [address], [place], [address], 07/25/2023 15:22:25 07/25/19 24 07/25/2023 CBC AUTO W DIFF MCH 26.0 pg 27-31 low Not Available [facility] ([facility]) [address], [place], [address], 07/25/2023 15:22:25 07/25/19 24 07/25/2023 CBC AUTO W DIFF MCHC 32.6 g/dL 32-36 Not Available [facility] ([facility]) [address], [place], [address], 07/25/2023 15:22:25 07/25/19 24 07/25/2023 CBC AUTO W DIFF RDW 13.7 % 11.5-1 4.0 Not Available [facility] ([facility]) [address], [place], [address], 07/25/2023 15:22:25 07/25/19 24 07/25/2023 CBC AUTO W DIFF platelet count 279 K/uL 150-45 0 Not Available [facility] ([facility]) [address], [place], [address], 07/25/2023 15:22:25 07/25/19 24 07/25/2023 CBC AUTO W DIFF MPV 10.0 fL 6-9.5 high Not Available [facility] ([facility]) [address] , [place], [address], 07/25/2023 15:22:25 07/25/19 24 07/25/2023 CBC AUTO W DIFF neutrophil% 61.2 % 43-65 Not Available [facility] ([facility]) [address] , [place], [address], 07/25/2023 15:22:25 07/25/19 24 07/25/2023 CBC AUTO W DIFF lymphocyte% 25.7 % 20.5-4 5.5 Not Available [facility] ([facility]) [address] [place], [address], 07/25/2023 15:22:25 07/25/19 24 07/25/2023 CBC AUTO W DIFF monocyte% 9.2 % 5.5-11 .7 Not Available [facility] ([facility]) [address] [place], [address], 07/25/2023 15:22:25 07/25/19 24 07/25/2023 CBC AUTO W DIFF eosinophil% 3.0 % 0.9-2. 9 high Not Available [facility] ([facility]) [address] [facility], [place], [address], 07/25/2023 15:22:25 07/25/19 24 07/25/2023 CBC AUTO W DIFF basophil% 0.6 % 0.2-1. 0 Not Available [facility] ([facility]) [address] [place], [address], 07/25/2023 15:22:25 07/25/19 24 07/25/2023 CBC AUTO W DIFF immature granulocytes % 0.3 % 0.0-0. 8 Not Available [facility] ([facility]) [address] [place], [address], 07/25/2023 15:22:25 07/25/19 24 07/25/2023 CBC AUTO W DIFF nucleated red blood cells % 0.0 % Not Available [facility] ([facility]) [address] [place], [address], 07/25/2023 15:22:25 07/25/19 24 07/25/2023 CBC AUTO W DIFF neutrophil# 4.1 K/uL 2.2-4. 8 Not Available [facility] ([facility]) [address] [facility] [place], [address], 07/25/2023 15:22:25 07/25/19 24 07/25/2023 CBC AUTO W DIFF lymphocyte# 1.7 cell/ mcL 1.3-2. 9 Not Available [facility] ([facility]) [address] [facility], [place], [address], 07/25/2023 15:22:25 07/25/19 24 07/25/2023 CBC AUTO W DIFF monocyte# 0.6 cell/ mcL 0.3-0. 8 Not Available [facility] ([facility]) [address] [facility], [place], [address], 07/25/2023 15:22:25 07/25/19 24 07/25/2023 CBC AUTO W DIFF eosinophil# 0.2 cell/ mcL 0-0.2 Not Available [facility] ([facility]) [address] [facility], [place], [address], 07/25/2023 15:22:25 07/25/19 24 07/25/2023 CBC AUTO W DIFF basophil# 0.0 cell/ mcL 0.0-1. 0 Not Available [facility] ([facility]) [address] [facility], [place], [address], 07/25/2023 15:22:25 07/25/19 24 07/25/2023 CBC AUTO W DIFF immature gramulocytes # 0.02 K/uL Not Available [facility] ([facility]) [address] [facility], [place], [address], 07/25/2023 15:22:25 07/25/19 24 07/25/2023 CBC AUTO W DIFF nucleated red blood cells # 0.00 K/uL Not Available [facility] ([facility]) [address] [facility], [place], [address], 07/25/2023 15:22:25 07/25/19 24 07/25/2023 CBC AUTO W DIFF manual differential NO Not Available [facility] ([facility]) [address] , [place], [address], 07/25/2023 15:22:25 07/25/19 24 07/25/2023 PT (PROT HROMB IN TIME) W INR prothrombin time 11.0 secon ds 9.3-11 .4 Not Available [facility] ([facility]) [address] , [place], [address], 07/25/2023 16:27:47 07/25/19 24 07/25/2023 PT (PROT [...] Mecha nical Heart Valve s Not Available [facility] ([facility]) [address] , [place], [address], 07/25/2023 16:27:47 07/25/19 24 07/25/2023 COMP METAB OLIC PANEL sodium 142 mmol/ L 136-14 5 Not Available [facility] ([facility]) [address] , [place], [address], 07/25/2023 16:32:05 07/25/19 24 07/25/2023 COMP METAB OLIC PANEL potassium 3.7 mmol/ L 3.6-5. 0 Not Available [facility] ([facility]) [address] [place], [address], 07/25/2023 16:32:05 07/25/19 24 07/25/2023 COMP METAB OLIC PANEL chloride 104 mmol/ L 98-107 Not Available [facility] ([facility]) [address] [place], [address], 07/25/2023 16:32:05 07/25/19 24 07/25/2023 COMP METAB OLIC PANEL carbon dioxide 29.1 mmol/ L 21.0-3 2.0 Not Available [facility] ([facility]) [address], [place], [address], 07/25/2023 16:32:05 07/25/19 24 07/25/2023 COMP METAB OLIC PANEL anion gap 12.6 Not Available [facility] ([facility]) [address], [place], [address], 07/25/2023 16:32:05 07/25/19 24 07/25/2023 COMP METAB OLIC PANEL glucose 85 mg/dL 70-120 Not Available [facility] ([facility]) [address] , [place], [address], 07/25/2023 16:32:05 07/25/19 24 07/25/2023 COMP METAB OLIC PANEL BUN 16 mg/dL 7-18 Not Available [facility] ([facility]) [address] , [place], [address], 07/25/2023 16:32:05 07/25/19 24 07/25/2023 COMP METAB OLIC PANEL creatinine 0.8 mg/dL 0.6-1. 3 Not Available [facility] ([facility]) [address] , [place], [address], 07/25/2023 16:32:05 07/25/19 24 07/25/2023 COMP METAB OLIC PANEL glomerular filtration rate >60 mlper min 60- Not Available [facility] ([facility]) [address] , [place], [address], 07/25/2023 16:32:05 07/25/19 24 07/25/2023 COMP METAB OLIC PANEL total protein 7.6 g/dL 6.4-8. 2 Not Available [facility] ([facility]) [address], [place], [address], 07/25/2023 16:32:05 07/25/19 24 07/25/2023 COMP METAB OLIC PANEL albumin 3.5 g/dL 3.4-5. 0 Not Available [facility] ([facility]) [address], [place], [address], 07/25/2023 16:32:05 07/25/19 24 07/25/2023 COMP METAB OLIC PANEL globulin 4.1 Not Available [facility] ([facility]) [address], [place], [address], 07/25/2023 16:32:05 07/25/19 24 07/25/2023 COMP METAB OLIC PANEL alb/glob ratio 0.9 0.7-2 Not Available [facility] ([facility]) [address], [place], [address], 07/25/2023 16:32:05 07/25/19 24 07/25/2023 COMP METAB OLIC PANEL calcium 8.8 mg/dL 8.5-10 .5 Not Available [facility] ([facility]) [address], [place], [address], 07/25/2023 16:32:05 07/25/19 24 07/25/2023 COMP METAB OLIC PANEL bilirubin total 0.40 mg/dL 0.10-1 .00 Not Available [facility] ([facility]) [address], [place], [address], 07/25/2023 16:32:05 07/25/19 24 07/25/2023 COMP METAB OLIC PANEL AST (SGOT) 24 U/L 0-37 Not Available [facility] ([facility]) [address], [place], [address], 07/25/2023 16:32:05 07/25/19 24 07/25/2023 COMP METAB OLIC PANEL ALT (SGPT) 27 U/L 0-65 Not Available [facility] ([facility]) [address], [place], [address], 07/25/2023 16:32:05 07/25/19 24 07/25/2023 COMP METAB OLIC PANEL alk phosphatase 74 U/L 46-116 Not Available [facility] ([facility]) [address], [place], [address], 07/25/2023 16:32:05 07/25/19 24 07/27/2023 FACTO R VIII (8) ACTIV ITY factor VIII (8) activity 159 % 56-140 high Perfo rmed at: - [facility] [place] [address] [place] [address] Lab Direc tor: Linda ho MD, Phone : [phone] Not Available [facility] ([facility]) [address] [facility], [place], [address], 07/27/2023 06:19:41 07/25/19 24 07/27/2023 PROTE IN C FUNTI ONAL protein C functional 102 % 73-180 Perfo rmed at: - [facility] [place] [address] [place] [address] Lab Direc tor: Linda ho MD, Phone : [phone] Not Available [facility] ([facility]) [address] [facility], [place], [address], 07/27/2023 06:19:42 07/25/19 24 07/27/2023 PROTE IN [...] at: BN - [facility] [place] [address] , [place] [address] Lab Direc tor: Linda ho MD, Phone : [phone] Not Available [facility] ([facility]) [address], [place], [address], 07/27/2023 06:19:43 07/25/19 24 08/03/2023 FACTO R [...] Facto r V Leide n (PMID : 83153 767). Ad ditio nal risk facto rs [...] ss resul ts at 1800 -345- GENE (5623 ). . Test Detai ls: Varia nt holly zed: c.*97 G>A, previ ously refer red to as G2021 0 A . Metho ds/Li mitat ions: DNA holyl sis of the F2 gene (NM_[id number] .[id number]) was perfo rmed by P CR [...] e lindy cteri stics deter mined by [employer] rp. It has not been clear ed or appro raquel by the Food and Drug Admin istra tion. . Refer ences : Fernanda Macias, Russ FULTON, Sammy evans R, Radha KING, Lucas in JH; [facility] Pro fessi onal Pract ice and Guide lines Commi ttee. Adden dum: Rubio morley e of Medic al Briseyda ics conse nsus state ment on facto r V Leide n muta tion testi ng. Brise[facility]da Med. 2020Sep 11. doi: 10.10 38/s4 1436- 021-0 110 8-x. PMID: 07623 767. . Randi smith JL. Proth rombi n Throm bophi za. 2005Jan 31 Updat ed 2020Aug 13 . In: Ricki MP, Bhaskar contreras HH, Mary RA, et al., [facility], inc rs. GeneR bassamw s(R) Inter net . [facility] Hospital[facility]risty gipson (MS): [facility] ; 1992- 2020. Avail able from: https ://ignacio morgan.ncb i.nlm .nih. gov/b ooks/ NBK11 48/ . Rick Macias, Russ FULTON, Audi X, Amaury B, Spect or EB, Fang P, Rich ards CS; [facility]G Labor atory Quali ty Assur ance Commi ttee. Venou s throm da mboli sm labor atory testi ng (fact or V Leide n and facto r II c.*97 G>A), 2018 updat e: a techn ical stand guy of the Rubio Lara ge of Medic al Briseyda ics and Genom ics ([facility] ). Brise[facility]da Med. 2017;2 0(12) :148 9-149 8. doi: 10.[facility]/s4 1436- 018-0 322-z . Epub 2017Apr 13. PMID: 99904 698. Not Available [facility] ([facility]) [address] , [place], [address], 08/03/2023 13:12:27 07/25/19 24 08/03/2023 FACTO R II, DNA HOLLY SIS reviewed by: Tacho camp, PhD Direc tor, Molec ular Briseyda ics Perfo rmed at: [facility] [place] [address] , [place] [address] Lab Direc tor: Yaneth Sullivan [facility] , Phone : [phone] Not Available [facility] ([facility]) [address] , [place], [address], 08/03/2023 13:12:27 10/24/19 24 10/24/2023 CBC AUTO W DIFF WBC 6.9 K/uL 4.0-10 .5 Not Available [facility] ([facility]) [address] , [place], [address], 10/24/2023 16:12:13 10/24/19 24 10/24/2023 CBC AUTO W DIFF RBC 5.7 M/mm3 4.7-6. 1 Not Available [facility] ([facility]) [address] , [place], [address], 10/24/2023 16:12:13 10/24/19 24 10/24/2023 CBC AUTO W DIFF HGB 14.7 gm/dL 13.5-1 8.0 Not Available [facility] ([facility]) [address], [place], [address], 10/24/2023 16:12:13 10/24/19 24 10/24/2023 CBC AUTO W DIFF HCT 46.0 % 42.0-5 2.0 Not Available [facility] ([facility]) [address] , [place], [address], 10/24/2023 16:12:13 10/24/19 24 10/24/2023 CBC AUTO W DIFF MCV 80.4 fL 78-100 Not Available [facility] ([facility]) [address] , [place], [address], 10/24/2023 16:12:13 10/24/19 24 10/24/2023 CBC AUTO W DIFF MCH 25.7 pg 27-31 low Not Available [facility] ([facility]) [address], [place], [address], 10/24/2023 16:12:13 10/24/19 24 10/24/2023 CBC AUTO W DIFF MCHC 32.0 g/dL 32-36 Not Available [facility] ([facility]) [address], [place], [address], 10/24/2023 16:12:13 10/24/19 24 10/24/2023 CBC AUTO W DIFF RDW 14.3 % 11.5-1 4.0 high Not Available [facility] ([facility]) [address], [place], [address], 10/24/2023 16:12:13 10/24/19 24 10/24/2023 CBC AUTO W DIFF platelet count 258 K/uL 150-45 0 Not Available [facility] ([facility]) [address] , [place], [address], 10/24/2023 16:12:13 10/24/19 24 10/24/2023 CBC AUTO W DIFF MPV 9.6 fL 6-9.5 high Not Available [facility] ([facility]) [address], [place], [address], 10/24/2023 16:12:13 10/24/19 24 10/24/2023 CBC AUTO W DIFF neutrophil% 70.1 % 43-65 high Not Available [facility] ([facility]) [address] , [place], [address], 10/24/2023 16:12:13 10/24/19 24 10/24/2023 CBC AUTO W DIFF lymphocyte% 18.4 % 20.5-4 5.5 low Not Available [facility] ([facility]) [address], [place], [address], 10/24/2023 16:12:13 10/24/19 24 10/24/2023 CBC AUTO W DIFF monocyte% 8.7 % 5.5-11 .7 Not Available [facility] ([facility]) [address], [place], [address], 10/24/2023 16:12:13 10/24/19 24 10/24/2023 CBC AUTO W DIFF eosinophil% 2.3 % 0.9-2. 9 Not Available [facility] ([facility]) [address] [place], [address], 10/24/2023 16:12:13 10/24/19 24 10/24/2023 CBC AUTO W DIFF basophil% 0.4 % 0.2-1. 0 Not Available [facility] ([facility]) [address] , [place], [address], 10/24/2023 16:12:13 10/24/19 24 10/24/2023 CBC AUTO W DIFF immature granulocytes % 0.1 % 0.0-0. 8 Not Available [facility] ([facility]) [address] [place], [address], 10/24/2023 16:12:13 10/24/19 24 10/24/2023 CBC AUTO W DIFF nucleated red blood cells % 0.0 % Not Available [facility] ([facility]) [address] [place], [address], 10/24/2023 16:12:13 10/24/19 24 10/24/2023 CBC AUTO W DIFF neutrophil# 4.8 K/uL 2.2-4. 8 Not Available [facility] ([facility]) [address], [place], [address], 10/24/2023 16:12:13 10/24/19 24 10/24/2023 CBC AUTO W DIFF lymphocyte# 1.3 cell/ mcL 1.3-2. 9 Not Available [facility] ([facility]) [address], [place], [address], 10/24/2023 16:12:13 10/24/19 24 10/24/2023 CBC AUTO W DIFF monocyte# 0.6 cell/ mcL 0.3-0. 8 Not Available [facility] ([facility]) [address], [place], [address], 10/24/2023 16:12:13 10/24/19 24 10/24/2023 CBC AUTO W DIFF eosinophil# 0.2 cell/ mcL 0-0.2 Not Available [facility] ([facility]) [address], [place], [address], 10/24/2023 16:12:13 10/24/19 24 10/24/2023 CBC AUTO W DIFF basophil# 0.0 cell/ mcL 0.0-1. 0 Not Available [facility] ([facility]) [address] [place], [address], 10/24/2023 16:12:13 10/24/19 24 10/24/2023 CBC AUTO W DIFF immature gramulocytes # 0.01 K/uL Not Available [facility] ([facility]) [address] [place], [address], 10/24/2023 16:12:13 10/24/19 24 10/24/2023 CBC AUTO W DIFF nucleated red blood cells # 0.00 K/uL Not Available [facility] ([facility]) [address] [place], [address], 10/24/2023 16:12:13 10/24/19 24 10/24/2023 CBC AUTO W DIFF manual differential NO Not Available [facility] ([facility]) [address], [place], [address], 10/24/2023 16:12:13 10/24/19 24 10/24/2023 COMP METAB OLIC PANEL sodium 139 mmol/ L 136-14 5 Not Available [facility] ([facility]) [address], [place], [address], 10/24/2023 16:42:07 10/24/19 24 10/24/2023 COMP METAB OLIC PANEL potassium 4.0 mmol/ L 3.6-5. 0 Not Available [facility] ([facility]) [address] , [place], [address], 10/24/2023 16:42:07 10/24/19 24 10/24/2023 COMP METAB OLIC PANEL chloride 104 mmol/ L 98-107 Not Available [facility] ([facility]) [address] , [place], [address], 10/24/2023 16:42:07 10/24/19 24 10/24/2023 COMP METAB OLIC PANEL carbon dioxide 28.1 mmol/ L 21.0-3 2.0 Not Available [facility] ([facility]) [address] , [place], [address], 10/24/2023 16:42:07 10/24/19 24 10/24/2023 COMP METAB OLIC PANEL anion gap 10.9 Not Available [facility] ([facility]) [address] , [place], [address], 10/24/2023 16:42:07 10/24/19 24 10/24/2023 COMP METAB OLIC PANEL glucose 99 mg/dL 70-120 Not Available [facility] ([facility]) [address], [place], [address], 10/24/2023 16:42:07 10/24/19 24 10/24/2023 COMP METAB OLIC PANEL BUN 16 mg/dL 7-18 Not Available [facility] ([facility]) [address], [place], [address], 10/24/2023 16:42:07 10/24/19 24 10/24/2023 COMP METAB OLIC PANEL creatinine 0.9 mg/dL 0.6-1. 3 Not Available [facility] ([facility]) [address], [place], [address], 10/24/2023 16:42:07 10/24/19 24 10/24/2023 COMP METAB OLIC PANEL glomerular filtration rate >60 mlper min 60- Not Available [facility] ([facility]) [address], [place], [address], 10/24/2023 16:42:07 10/24/19 24 10/24/2023 COMP METAB OLIC PANEL total protein 7.2 g/dL 6.4-8. 2 Not Available [facility] ([facility]) [address], [place], [address], 10/24/2023 16:42:07 10/24/19 24 10/24/2023 COMP METAB OLIC PANEL albumin 3.6 g/dL 3.4-5. 0 Not Available [facility] ([facility]) [address], [place], [address], 10/24/2023 16:42:07 10/24/19 24 10/24/2023 COMP METAB OLIC PANEL globulin 3.6 Not Available [facility] ([facility]) [address], [place], [address], 10/24/2023 16:42:07 10/24/19 24 10/24/2023 COMP METAB OLIC PANEL alb/glob ratio 1.0 0.7-2 Not Available [facility] ([facility]) [address], [place], [address], 10/24/2023 16:42:07 10/24/19 24 10/24/2023 COMP METAB OLIC PANEL calcium 8.6 mg/dL 8.5-10 .5 Not Available [facility] ([facility]) [address], [place], [address], 10/24/2023 16:42:07 10/24/19 24 10/24/2023 COMP METAB OLIC PANEL bilirubin total 0.50 mg/dL 0.10-1 .00 Not Available [facility] ([facility]) [address], [place], [address], 10/24/2023 16:42:07 10/24/19 24 10/24/2023 COMP METAB OLIC PANEL AST (SGOT) 23 U/L 0-37 Not Available [facility] ([facility]) [address], [place], [address], 10/24/2023 16:42:07 10/24/19 24 10/24/2023 COMP METAB OLIC PANEL ALT (SGPT) 39 U/L 0-65 Not Available [facility] ([facility]) [address] [facility], [place], [address], 10/24/2023 16:42:07 10/24/19 24 10/24/2023 COMP METAB OLIC PANEL alk phosphatase 80 U/L 46-116 Not Available [facility] ([facility]) [address], [place], [address], 10/24/2023 16:42:07 10/25/19 24 10/26/2023 SEDIM ENTAT ION RATE- WESTE RGREN sedimentatio n rate-westerg los 5 mm/HR 0-15 Not Available [facility] ([facility]) [address] [facility], [place], [address], 11/03/2023 15:11:19 10/25/19 24 10/27/2023 C-CHANA CTIVE PROTE IN, QUANT C-reactive protein, quant 15 mg/L 0-10 above high normal Not Available [facility] ([facility]) [address] [facility], [place], [address], 11/03/2023 15:11:21 04/23/20 24 04/23/2024 C-CHANA CTIVE PROTE IN (CRP) C-reactive protein, quant 1.1 mg/dL 0.05-0 .300 high Not Available [facility] ([facility]) [address] [facility], [place], [address], 04/23/2024 10:36:29 04/23/20 24 04/23/2024 SED RATE sed rate auto 4 0-15 Not Available [facility] ([facility]) [address] [facility], [place], [address], 04/23/2024 10:54:51 11/20/19 24 11/20/2023 arti melgar x US lwr RT ext [facility] [address] [place] [address] Phone: Fax: Name: GAYATHRI DENNIS Exam Date: 024 : 1979 Age 43 years Gender : M Access ion: [id number] Physic lou: LUCI BRADFORD Facili ty: [facility] Facili ty HSV: Outpat ient Exam: [...] right lower extrem ity. Dictat ed By: Jose Luciano Transc ribed By: Jose Sebastian Transc ribed On: 11:51 AM Electr onical ly signed by: Jose Luciano Thank you for referr ing GAYATHRI DENNIS to [facility]. Legall y authen ticate d by YANELIS DÍAZ 11-19 11:51: 02 CC'ed Logic: Orderi ng Provid er: [facility] Attend ing Provid er: [facility] Referr ing Provid er: [facility] Admitt ing Provid er: [facility]NA [address] - Physical Therapy [address] [facility], [place], [address], 11/20/2023 12:58:54 11/20/19 24 11/20/2023 CT, angio gram, chest , w/ contr ast [facility] al [address] [place] [address] Phone: Fax: Name: GAYATHRI DENNIS Exam Date: : 1979 Age 43 years Gender : M Access ion: [id number] Physic lou: LUCI BRADFORD Facili ty: [facility] Facili ty HSV: Outpat ient Exam: [...] . Airway s are patent . Esopha pream: Unrema rkable . Upper Abdome n: No [...] 58 Electr onical ly signed by: Jose Lucinao 5/13/2 024 Thank you for referr GAYATHRI Rodríguez to [facility]. Legall y authen ticate d by YANELIS CRENSHAWFouzia Colleen IVO 2023-0 11-19 12:06: 58 CC'ed Logic: Orderi ng Provid er: [facility] Attend ing Provid er: [facility] Referr ing Provid er: [facility] Admitt ing Provid er: [facility]NA [email or web address] [facility] [address], [place], [address], 11/21/2023 16:18:56 Result Notes None recorded. 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 Procedures Surgical History Date Name Laterality Status Provider Name and Address Organization Details Recorded Time 03/26/20 24 Venipuncture cancelled Luci Ag PA-C [address], [place], [address], [place] [facility] [place] [facility] [place] 03/18/2024 14:56:10 10/24/19 24 Venipuncture completed Luci Ag PA-C [address], [place], [address], [place] [facility] [place] [facility] [place] 10/23/2023 10:53:19 07/25/19 24 Venipuncture completed Sarah SANZ - [facility] [place] [facility] [place] 07/25/2023 14:41:20 amputation of lower limb completed Sarah SANZ - [facility] [place] [facility] [place] 07/25/2023 13:57:05 Imaging Results Imaging Date Name Status LastModified by Terrell toscano Details LastModified Time 11/20/2023 venous duplex US lwr RT ext completed [email or web address] [facility] [address], [place], [address], 11/20/2023 12:58:54 11/20/2023 CT, angiogram, chest, w/ contrast completed [email or web address] [facility] [address], [place], [address], 11/21/2023 16:18:56 Procedure Notes None recorded. Medical Equipment None Reported. Allergies Allergen ID Allergen Name Allergen Category Reaction Reaction Severity Criticality Documentation Date Start Date Code Code System Note Provider Name and Address Organization Details Recorded Time 877640 cefdinir medicatio n Not available Not available Not available 06/02/2023 75518 RxNorm Isabel Kay [facility] [place] 3 10:06:00 Medications Name Sig Start Date [...] active Not Available Not Available Not Available [facility] 10 billion cell-200 mg sprinkle capsule [...] [degF] 96 % 96 % 81 /min 086432. 75 g 81 /min Isabel Abdullahiey [facility] [place] 4 08:59:33 Date Recorded Body weight Body temperature Heart rate Oxygen saturation Oxygen saturation in Arterial blood by Pulse oximetry Systolic blood pressure Diastolic blood pressure Provider Name and Address Organization Details Last Updated DateTime 4 877631. 53 g 97.8 [degF] 89 /min 95 % 95 % 134 mm[Hg] 82 mm[Hg] [facility] [place] 4 13:54:07 Date Recorded Body height Body mass index (BMI) Body weight Body temperature Heart rate Oxygen saturation Oxygen saturation in Arterial blood by Pulse oximetry Systolic blood pressure Diastolic blood pressure Provider Name and Address Organization Details Last Updated DateTime 4 182.88 cm 43.3 kg/m2 870078. 97 g 98 [degF] 95 /min 96 % 96 % 137 mm[Hg] 92 mm[Hg] [facility] [place] 4 14:44:48 Date Recorded Body height Body mass index (BMI) Body weight Body temperature Oxygen saturation Oxygen saturation in Arterial blood by Pulse oximetry Heart rate Systolic blood pressure Diastolic blood pressure Provider Name and Address Organization Details Last Updated DateTime 4 182.88 cm 43.2 kg/m2 731728. 81 g 98.6 [degF] 95 % 95 % 86 /min 134 mm[Hg] 84 mm[Hg] Amy Jay [facility] [place] 4 08:59:12 Date Recorded Body height Body mass index (BMI) Body weight Body temperature Oxygen saturation Oxygen saturation in Arterial blood by Pulse oximetry Heart rate Systolic blood pressure Diastolic blood pressure Provider Name and Address Organization Details Last Updated DateTime 4 182.88 cm 42.9 kg/m2 377633. 19 g 98 [degF] 94 % 94 % 70 /min 140 mm[Hg] 80 mm[Hg] Kalie Gibbs [facility] [place] 4 09:24:00 Social History Question Answer Notes LastModified by Organizat ion Details LastModified Time Tobacco Smoking Status Never Smoker Isabel jaramillo [facility] [place] 06/02/2023 10:06:28 What Is Your Level Of Alcohol Consumption? Occasional [email or web address] Information not available 07/25/2023 Do You Use Any Illicit Or Recreational Drugs? No [email or web address] Information not available 07/25/2023 Sex: Unknown Functional Status None recorded. Mental Status None recorded. Family History Nothing Reported. Medical History No medical history recorded. Immunizations Vaccine Type Date Status Note Provider Nam e and Address Organization Details Recorded Time Td (adult), 2 Lf tetanus toxoid, preservative free, adsorbed 6 completed Sarah jaramillo [facility] [place] 07/25/2023 13:54:15 Past Encounters Encounter ID Performer Location Encounter Start Date Encounter Closed Date Diagnosis/Indication Diagnosis SNOMED-CT Code Diagnosis ICD10 Code Diagnosis Note [id number] Randy Torres MD [facility] [address] [place] [address] 06/02/2023 09:54:50 06/02/2023 10:26:43 Osteomyelitis 90338021 M86.9 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 Influenza caused by Influenza A virus 888790089 J09.X2 Resolved.. No further oseltamivi r needed. High risk medication monitoring indicated 8404084472 0679074 Z76.89 Related to the daptomycin . I will check a total CK and continue to follow serial levels of this enzyme to make sure he develops no rhabdomyol ysis. [id number] Randy Torres MD [facility] [address] [place] [address] 06/09/2023 10:23:03 06/09/2023 10:54:12 Osteomyelitis 04255271 M86.9 Occurring in the right BKA stump [...] time. Methicilli n resistant Staphylococcus aureus infection 227904150 A49.02 As above High risk medication monitoring indicated 3919676566 4718157 Z76.89 This is related to the daptomycin . I will continue to monitor his total CK levels closely. [id number] Randy Torres MD [facility] [address] [place] [address] 06/28/2023 10:37:09 06/28/2023 11:22:08 Osteomyelitis 94278256 M86.9 Occurring in the right BKA stump [...] week. Methicilli n resistant Staphylococcus aureus infection 720217451 A49.02 As above [id number] Randy Torres MD [facility] [place] [address] 07/06/2023 09:38:06 07/06/2023 10:00:10 Osteomyelitis 79610578 M86.9 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 Methicilli n resistant Staphylococcus aureus infection 049074965 A49.02 As above Adverse re action to drug 34719013 T50.905A Related to doxycyclin e. This is gastrointe stinal in nature. I will check his liver function testing to make sure he is not developing any hepatotoxi city. I will drop the dose to 100 mg per day. I want him to continue to take it with food. I will re-evaluat e next week. [id number] Randy Torres MD [facility] [address] [place] [address] 07/12/2023 08:53:12 07/12/2023 09:54:35 Osteomyelitis 39278366 M86.9 Occurring in the right BKA stump [...] month. Methicilli n resistant Staphylococcus aureus infection 773325071 A49.02 As above [id number] Luci Ag PA-C [facility] [address] [place] [address] 07/25/2023 13:39:19 07/26/2023 06:33:52 Deep venous thrombosis 770278308 I82.409 Patient has a history of osteomyeli [...] performed when patient was hospitaliz ed at [facility] on May 26, 2023 with normal antithromb in 3 activity. No evidence of factor 5 Leiden mutation. Discussed with patient will order additional labs for further evaluation acquired hypercoagu lable disorder today. Discussed will likely continue on least the prophylact ic dose of Eliquis lifelong due to separate occurrence s of blood clots. Pulmonary embolism 37633 003 I26.99 Patient has a history of [...] s of blood clots. Anticoagulant therapy 18 5698860 Z79.01 Patient continues on Eliquis 5 mg 1 tab p.o. b.i.d.. He is tolerating without trouble. Discussed will likely continue on least the prophylact ic dose of Eliquis lifelong due to separate occurrence s of blood clots. [id number] Luci Ag PA-C [facility] [address] [facility] [address] [place] [address] 10/24/2023 14:29:27 10/24/2023 15:33:34 Deep venous thrombosis 254535793 I82.409 Patient has a history of osteomyeli [...] performed when patient was hospitaliz ed at [facility] on May 26, 2023 with normal [...] Will follow up labs today. Pulmonary embolism 64824 003 I26.99 Patient has a history of [...] follow up labs today. Anticoagulant therapy 18 7382117 Z79.01 Patient continues on Eliquis 5 mg 1 tab p.o. b.i.d.. He is tolerating without trouble. Discussed will continue on least the prophylact ic dose of Eliquis lifelong due to separate occurrence s of blood clots. Will follow up venous duplex of lower extremity and chest CTA to make sure no evidence of embolism before reducing Eliquis dose to 2.5 mg b.i.d. [id number] Randy Torres MD [facility] [address] [place] [address] 10/25/2023 08:49:58 10/25/2023 10:57:40 Osteomyelitis 89002727 M86.9 Occurring in the right BKA stump [...] months. Methicilli n resistant Staphylococcus aureus infection 749849287 A49.02 As above High risk medication monitoring indicated 7023113724 4537690 Z76.89 This is related to the chronic suppressiv e doxycyclin e. I reviewed his liver function testing from yesterday. There is no evidence of any hepatotoxi city. I will continue to monitor this at each visit. I also counseled him about the risk of photosensi tivity with doxycyclin e. [id number] Randy Torres MD [facility] -[address] [facility] [address] [place] [address] 04/23/2024 09:14:33 04/23/2024 09:34:49 Osteomyelitis 90532242 M86.9 Occurring in the right BKA stump [...] month. Methicilli n resistant Staphylococcus aureus infection 955711697 A49.02 As above Health Concerns Section Related Observation LastModified by Organization Detai ls LastModified Time None Recorded Concern Status LastModified by Organization Details LastModified Time None Recorded Advance Directives Directive None Recorded Payers Encounter Date Sequence Insurance Name Policy Number Policy Brantley Covered Member ID Brantley Member ID Guarantor Name 07/12/2023 1 [place] [employer] [id number] Won Dennis [id number] Won Lucascker 07/25/2023 1 [place] [id number] Won Dennis [id number] Won Lucascker 10/24/2023 1 [employer] CLAIMS OFFICE Won Lucascker [id number] Won Sonny 10/25/2023 1 [employer] CLAIMS OFFICE Won Lucascker [id number] Won Lucascker 04/23/2024 1 [employer] CLAIMS OFFICE Won Lucascker [id number] Won Lucascker Notes Date Note Type Note Provider Name and Address Organization Details Recorded Time 07/12/2023 text/html This is a 42-yea r-old white male following up with sc for right BKA stump osteomyelitis due to [...] incision remains completely healed. Randy Torres MD [address], [place], [address], [place] [facility] [place] [facility] [place] 07/12/2023 09:50:44 07/25/2023 text/html 43-year-old male presents [...] Labs performed when patient was hospitalized at [facility] on May 26, 2023 with normal antithrombin 3 activity. No evidence of factor 5 Leiden mutation. Discussed with patient will order additional labs for further evaluation acquired hypercoagulable disorder today. Discussed will likely continue on least the prophylactic dose of Eliquis lifelong due to separate occurrences of blood clots. Luci Ag PA-C [address] , [place], [address], [place] [facility] [place] [facility] [place] 07/25/2023 15:32:35 10/24/2023 text/html 43-year-old male presents [...] Labs performed when patient was hospitalized at [facility] on May 26, 2023 with normal [...] today. Luci Ag PA-C [address], [place], [address], [facility] 10/24/2023 15:43:34 10/25/2023 text/html This is a 42-yea r-old white male following up with sc for right BKA stump osteomyelitis due to [...] well. 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 Since his debridement, he completed 6 weeks of intravenous daptomycin and 1 year of suppressive doxycycline. He is remained infection free. His stump is fully healed. No fever. No other issues. He is tolerating the doxycycline well. Randy Torres MD [address], [place], [address], [facility] 04/23/2024 09:31:22
[2024-10-31] MEDS: IOPAMIDOL-370 (76%);100ML BOTTLE 160 ML IV (14:08)
[2024-10-31] MEDS: SODIUM CHLORIDE 0.9% 10ML SYR (RAD ONLY) 10 ML IV (14:08)
[2024-10-31] MEDS: METHACHOLINE CHLORIDE 65MG/18ML KIT 65 MG IH (14:30)
[2024-10-31 15:25] VITALS: PULSE 73; PULSE 78
[2024-10-31] MEDS: ALBUTEROL 0.083% 2.5 MG/3 ML NEB IH (15:25)
== END 2024-10-31 23:59 | disposition home or self-care (01) ==
LOC: RAD 13:27
PROVIDERS: PCP Nurse Practitioner Family; Visit Provider Internal Medicine Pulmonary Disease
DX: R91.8 Other nonspecific abnormal finding of lung field (principal); R07.9 Chest pain, unspecified; D68.2 Hereditary deficiency of other clotting factors; R06.09 Other forms of dyspnea; Z86.711 Personal history of pulmonary embolism
CPT/HCPCS: 71275; 94070; 94640; 95070; J7613; J7674; Q9967

== ENCOUNTER 2024-12-02 11:37 | Outpatient (CLI) | payer MEDICAID, SELFPAY ==
[2024-12-02 21:00] LABS: Coronavirus 19, PCR Not Detected (NotDetected); Human Rhinovirus Not Detected (NotDetected); Influenza A, PCR Not Detected (NotDetected); Influenza B, PCR Not Detected (NotDetected); Respiratory Syncytial Virus Not Detected (NotDetected)
== END 2024-12-02 23:59 | disposition home or self-care (01) ==
LOC: LAB.DROPOF 12-03 10:30
PROVIDERS: PCP Nurse Practitioner Family; Visit Provider Student in an Organized Health Care Education/Training Program
DX: R05.9 Cough, unspecified (principal); R50.9 Fever, unspecified
CPT/HCPCS: 87631

== ENCOUNTER 2025-01-20 17:11 | Emergency (ER) | payer MEDICAID, SELFPAY ==
[2025-01-20] VITALS (12 sets, daily range): BP systolic 110–140; BP diastolic 75–91; PULSE 60–82; RESP 14–15; TEMP 36.8; O2SAT 94–98; BMI 44.4
--- OUTSIDE RECORDS SUMMARY | 2025-01-20 17:42 | XMS_ITS | Clinical Summary ---
Author Organization Healthcare Address [address] [place] [address] Care Team Providers Care Unit Tender Name Role Phone Unavailable Primary Care Provider Unavailabl e Immunizations Immunization Administration Dates Next Due Tdap 07/29/2017 Family History Medical History Relation Name Comments Conversions - Other Father Known he alth problems: none Conversions - Other Mother Known he alth problems: none Relation Name Status Comments Father Mother Social History Tobacco Use Types Packs/Day Years Used Date Smoking Tobacco: Never Alcohol Use Standard Drinks/Week Comments No 0 (1 standard drink = 0.6 oz pur e alcohol) Sex and Gender Information Value Date Recorded Sex Assigned at Not on file Legal Sex Male 6:45 PM EDT Gender Identity Not on file Sexual Orientation Not on file Last Filed Vital Signs Vital Sign Reading Time Taken Comments Blood Pressure 136/96 06/08/2018 10:47 AM EST Pulse 75 06/08/2018 10:47 AM EST Temperature 36.8 C (98.2 F) 06/08/2018 10:47 AM EST Respiratory Rate - - Oxygen Saturation - - Inhaled Oxygen Concentration - - Weight 135 kg (297 lb 15.9 oz) 06/08/2018 10:47 AM EST Height 180.3 cm (5' 11 ) 06/08/2018 10:47 AM EST Body Mass Index 41.56 06/08/2018 10:47 AM EST Plan of Treatment Not on file
--- OUTSIDE RECORDS SUMMARY | 2025-01-20 17:42 | XMS_ITS | Encounter Summary ---
Author Organization Healthcare Address [address] [place] [address] Care Team Providers Care Adjustment Clerk Name Role Phone Unavailable Primary Care Provider Unavailabl e Encounter Details Date Type Department Care Team (Late st Contact Info) Description 05/17/2023 Lab Requisition [facility] [address] [place] [address] Sushil Dean MD [address] [facility] [address] [place] [address] Encounter for general adult medical examination without abnormal findings Social History Tobacco Use Types Packs/Day Years Used Date Smoking Tobacco: Never Alcohol Use Standard Drinks/Week Comments No 0 (1 standard drink = 0.6 oz pur e alcohol) Sex and Gender Information Value Date Recorded Sex Assigned at Not on file Legal Sex Male 6:45 PM EDT Gender Identity Not on file Sexual Orientation Not on file documented as of this encounter Plan of Treatment Not on file documented as of this encounter Procedures Procedure Name Priority Date/Time Associated Diagnosis Comments BONE CULTURE AND GRAM STAIN Routine 05/17/2023 4:45 PM EST Encounter for general adult medical examination without abnormal findings ANAEROBIC CULTURE Routine 05/17/2023 4:4 5 PM EST Encounter for general adult medical examination without abnormal findings documented in this encounter Results * Anaerobic Culture (05/17/2023 4:45 PM EST) Culture No growth at day 4 05/24/2023 1:34 PM EST [facility] Bone 05/17/2023 4:45 PM EST 05/17/2023 8:27 PM EST us Sushil Dean MD LAB MICROBIOLOGY - GENERAL O RDERABLES Final Result Performing Organization Address City/[facility] Co de Phone Number [facility] [address] [place] [address] * Bone Culture and Gram Stain (05/17/2023 4:45 PM EST) Culture No growth at day 4 2022 9:58 AM EST [facility] Gram Stain Result Moderate Polymorphonuclear leukocytes 05/21/2023 9:58 AM EST [facility] Gram Stain Result No organisms seen 05/21/2023 9:58 AM EST [facility] Bone 05/17/2023 4:45 PM EST 05/17/2023 8:27 PM EST us Sushil Dean MD LAB MICROBIOLOGY - GENERAL O RDERABLES Final Result Performing Organization Address [facility] Co de Phone Number [facility] [address] [place] [address] documented in this encounter Visit Diagnoses Diagnosis Encounter for general adult medical examination without abnormal findings documented in this encounter
--- OUTSIDE RECORDS SUMMARY | 2025-01-20 17:42 | XMS_ITS | Encounter Summary ---
Author Organization Healthcare Address [address] [place] [address] Care Team Providers Care First Helper Name Role Phone Unavailable Primary Care Provider Unavailabl e Encounter Details Date Type Department Care Team (Late st Contact Info) Description 07/20/2022 Lab Requisition [facility] [address] [place] [id number] Sushil Dean MD [address] [place] [address] Encounter for general adult medical examination without [...] on file documented as of this encounter Visit Diagnoses Diagnosis Encounter for general adult medical examination without abnormal findings documented in this encounter
--- OUTSIDE RECORDS SUMMARY | 2025-01-20 17:42 | XMS_ITS | Data Portability ---
Author Organization [place] - [facility] & [place] [facility] ADMIN Address [address] [place] [id number] Care Team Providers Care Head Sulfide Operator Name Role Phone GUILLE KNOWLES Primary Care Provider Assessment No assessment recorded. Plan of Treatment Reminders Order Date Submit Date Provider Last Modified By Organization Details Last Modified Time Details Appointments None recorded. Lab C-reactive protein, quantitativ e, serum or plasma [address] [facility], [address] [place], [address], 4 17:36:31 ESR (erythrocyt e sedimentati on rate), blood 2023 024 [email or web address] [id number] [facility], [address] [facility], [place], [address], 4 17:36:31 C-reactive protein, quantitativ e, serum or plasma 2023 024 [facility], [address], [address], [place], [address], 4 08:08:32 ESR (erythrocyt e sedimentati on rate), blood 2023 024 [facility], [address], [address], [place], [address], 4 08:08:32 CBC w/ auto diff 2023 024 [facility], [address] [place], [address], 4 16:12:13 CMP, serum or plasma 2023 024 [facility], [address] [place], [address], 4 16:42:07 CBC w/ auto diff 2023 024 [facility], [address] [place], [address], 4 15:22:25 CMP, serum or plasma 2023 024 [facility], [address] [place], [address], 4 16:32:05 prothrombin (factor II) [id number] mutation, blood 2023 024 [email or web address] 6 [facility], [address] [place], [address], 4 08:55:21 factor VIII activity, plasma 2023 024 [email or web address] 6 [facility], [address] [place], [address], 4 08:26:01 protein C + protein S, functional panel, plasma 2023 024 ravin 6 [facility], [address] [place], [address], 4 08:26:02 Referral None recorded. Procedures None recorded. Surgeries None recorded. Imaging None recorded. Medication Orders doxycycline hyclate 100 mg capsule [address] [facility], [address], [address], [place], [address], 09:18:27 Patient TargetsNo targets recorded. Patient InstructionsNo instructions recorded. Reason for Referral None Reported. Results Created Date Observation Date Name Description Value Unit Range Abnormal Flag Note LastModifiedBy Organization Detail LastModifiedTime 07/06/20 23 07/07/2023 COMP. METAB OLIC PANEL (14) glucose 92 mg/dL 70-99 Not Available [facility] ([facility]) [address] [place], [address], 07/07/2023 13:08:40 07/06/20 23 07/07/2023 COMP. METAB OLIC PANEL (14) BUN 18 mg/dL 6-24 Not Available [facility] ([facility]) [address] [place], [address], 07/07/2023 13:08:40 07/06/20 23 07/07/2023 COMP. METAB OLIC PANEL (14) creatinine 0.85 mg/dL 0.76-1 .27 Not Available [facility] ([facility]) [address] [place], [address], 07/07/2023 13:08:40 07/06/20 23 07/07/2023 COMP. METAB OLIC PANEL (14) eGFR 111 mL/mi n/1.7 3 >59 Not Available [facility] ([facility]) [address] [place], [address], 07/07/2023 13:08:40 07/06/20 23 07/07/2023 COMP. METAB OLIC PANEL (14) BUN/creatini ne ratio 21 9-20 above high normal Not Available [facility] ([facility]) [address] [place], [address], 07/07/2023 13:08:40 07/06/20 23 07/07/2023 COMP. METAB OLIC PANEL (14) sodium 140 mmol/ L 134-14 4 Not Available [facility] ([facility]) [address] [place], [address], 07/07/2023 13:08:40 07/06/20 23 07/07/2023 COMP. METAB OLIC PANEL (14) potassium 4.1 mmol/ L 3.5-5. 2 Not Available [facility] ([facility]) [address] [place], [address], 07/07/2023 13:08:40 07/06/20 23 07/07/2023 COMP. METAB OLIC PANEL (14) chloride 105 mmol/ L 96-106 Not Available [facility] ([facility]) [address] [place], [address], 07/07/2023 13:08:40 07/06/20 23 07/07/2023 COMP. METAB OLIC PANEL (14) carbon dioxide, total 22 mmol/ L Not Available [facility] ([facility]) [address] [facility] [place], [address], 07/07/2023 13:08:40 07/06/20 23 07/07/2023 COMP. METAB OLIC PANEL (14) calcium 8.9 mg/dL 8.7-10 .2 Not Available [facility] ([facility]) [address] [facility], [address], 07/07/2023 13:08:40 07/06/20 23 07/07/2023 COMP. METAB OLIC PANEL (14) protein, total 7.3 g/dL 6.0-8. 5 Not Available [facility] ([facility]) [address] [facility] [place], [address], 07/07/2023 13:08:40 07/06/20 23 07/07/2023 COMP. METAB OLIC PANEL (14) albumin 4.3 g/dL 4.1-5. 1 Not Available [facility] ([facility]) [address] [facility] [place], [address], 07/07/2023 13:08:40 07/06/20 23 07/07/2023 COMP. METAB OLIC PANEL (14) globulin, total 3.0 g/dL 1.5-4. 5 Not Available [facility] ([facility]) [address] [facility], [place], [address], 07/07/2023 13:08:40 07/06/20 23 07/07/2023 COMP. METAB OLIC PANEL (14) A/G ratio 1.4 1.2-2. 2 Not Available [facility] ([facility]) [address] [facility], [place], [address], 07/07/2023 13:08:40 07/06/20 23 07/07/2023 COMP. METAB OLIC PANEL (14) bilirubin, total 0.3 mg/dL 0.0-1. 2 Not Available [facility] ([facility]) [address] [facility], [place], [address], 07/07/2023 13:08:40 07/06/20 23 07/07/2023 COMP. METAB OLIC PANEL (14) alkaline phosphatase 85 IU/L 44-121 Not Available [facility] ([facility]) [address] [facility], [place], [address], 07/07/2023 13:08:40 07/06/20 23 07/07/2023 COMP. METAB OLIC PANEL (14) AST (SGOT) 24 IU/L 0-40 Not Available [facility] ([facility]) [address] [facility], [place], [address], 07/07/2023 13:08:40 07/06/20 23 07/07/2023 COMP. METAB OLIC PANEL (14) ALT (SGPT) 25 IU/L 0-44 Not Available [facility] ([facility]) [address] [facility], [place], [address], 07/07/2023 13:08:40 07/06/20 23 07/07/2023 SEDIM ENTAT ION RATE- WESTE RGREN sedimentatio n rate-westerg los 28 mm/HR 0-15 above high normal Not Available [facility] ([facility]) [address] [facility], [place], [address], 07/07/2023 13:08:42 07/06/20 23 07/07/2023 C-CHANA CTIVE PROTE IN, QUANT C-reactive protein, quant 11 mg/L 0-10 above high normal Not Available [facility] ([facility]) [address] [facility], [place], [address], 07/07/2023 13:08:43 07/25/19 24 07/25/2023 CBC AUTO W DIFF WBC 6.7 K/uL 4.0-10 .5 Not Available [facility] ([facility]) [address] [facility], [place], [address], 07/25/2023 15:22:25 07/25/19 24 07/25/2023 CBC AUTO W DIFF RBC 5.7 M/mm3 4.7-6. 1 Not Available [facility] ([facility]) [address] [facility], [place], [address], 07/25/2023 15:22:25 07/25/19 24 07/25/2023 CBC AUTO W DIFF HGB 14.8 gm/dL 13.5-1 8.0 Not Available [facility] ([facility]) [address] [facility], [place], [address], 07/25/2023 15:22:25 07/25/19 24 07/25/2023 CBC AUTO W DIFF HCT 45.4 % 42.0-5 2.0 Not Available [facility] ([facility]) [address] [facility], [place], [address], 07/25/2023 15:22:25 07/25/19 24 07/25/2023 CBC AUTO W DIFF MCV 79.6 fL 78-100 Not Available [facility] ([facility]) [address], [place], [address], 07/25/2023 15:22:25 07/25/19 24 07/25/2023 CBC AUTO W DIFF MCH 26.0 pg 27-31 low Not Available [facility] ([facility]) [address] , [place], [address], 07/25/2023 15:22:25 07/25/19 24 07/25/2023 CBC AUTO W DIFF MCHC 32.6 g/dL 32-36 Not Available [facility] ([facility]) [address] , [place], [address], 07/25/2023 15:22:25 07/25/19 24 07/25/2023 CBC AUTO W DIFF RDW 13.7 % 11.5-1 4.0 Not Available [facility] ([facility]) [address] , [place], [address], 07/25/2023 15:22:25 07/25/19 24 07/25/2023 CBC AUTO W DIFF platelet count 279 K/uL 150-45 0 Not Available [facility] ([facility]) [address] , [place], [address], 07/25/2023 15:22:25 07/25/19 24 07/25/2023 CBC AUTO W DIFF MPV 10.0 fL 6-9.5 high Not Available [facility] ([facility]) [address] , [place], [address], 07/25/2023 15:22:25 07/25/19 24 07/25/2023 CBC AUTO W DIFF neutrophil% 61.2 % 43-65 Not Available [facility] ([facility]) [address] , [place], [address], 07/25/2023 15:22:25 07/25/19 24 07/25/2023 CBC AUTO W DIFF lymphocyte% 25.7 % 20.5-4 5.5 Not Available [facility] ([facility]) [address], [place], [address], 07/25/2023 15:22:25 07/25/19 24 07/25/2023 CBC AUTO W DIFF monocyte% 9.2 % 5.5-11 .7 Not Available [facility] ([facility]) [address], [place], [address], 07/25/2023 15:22:25 07/25/19 24 07/25/2023 CBC AUTO W DIFF eosinophil% 3.0 % 0.9-2. 9 high Not Available [facility] ([facility]) [address] [facility], [place], [address], 07/25/2023 15:22:25 07/25/19 24 07/25/2023 CBC AUTO W DIFF basophil% 0.6 % 0.2-1. 0 Not Available [facility] ([facility]) [address] [place], [address], 07/25/2023 15:22:25 07/25/19 24 07/25/2023 CBC AUTO W DIFF immature granulocytes % 0.3 % 0.0-0. 8 Not Available [facility] ([facility]) [address] [place], [address], 07/25/2023 15:22:25 07/25/19 24 07/25/2023 CBC AUTO W DIFF nucleated red blood cells % 0.0 % Not Available [facility] ([facility]) [address] [place], [address], 07/25/2023 15:22:25 07/25/19 24 07/25/2023 CBC AUTO W DIFF neutrophil# 4.1 K/uL 2.2-4. 8 Not Available [facility] ([facility]) [address], [place], [address], 07/25/2023 15:22:25 07/25/19 24 07/25/2023 CBC AUTO W DIFF lymphocyte# 1.7 cell/ mcL 1.3-2. 9 Not Available [facility] ([facility]) [address] [facility], [place], [address], 07/25/2023 15:22:25 07/25/19 24 07/25/2023 CBC AUTO W DIFF monocyte# 0.6 cell/ mcL 0.3-0. 8 Not Available [facility] ([facility]) [address] [facility], [place], [address], 07/25/2023 15:22:25 07/25/19 24 07/25/2023 CBC AUTO W DIFF eosinophil# 0.2 cell/ mcL 0-0.2 Not Available [facility] ([facility]) [address] [facility], [place], [address], 07/25/2023 15:22:25 07/25/19 24 07/25/2023 CBC AUTO W DIFF basophil# 0.0 cell/ mcL 0.0-1. 0 Not Available [facility] ([facility]) [address] [facility], [place], [address], 07/25/2023 15:22:25 07/25/19 24 07/25/2023 CBC AUTO W DIFF immature gramulocytes # 0.02 K/uL Not Available [facility] ([facility]) [address] [facility], [place], [address], 07/25/2023 15:22:25 07/25/19 24 07/25/2023 CBC AUTO W DIFF nucleated red blood cells # 0.00 K/uL Not Available [facility] ([facility]) [address] [facility], [place], [address], 07/25/2023 15:22:25 07/25/19 24 07/25/2023 CBC AUTO W DIFF manual differential NO Not Available [facility] ([facility]) [address], [place], [address], 07/25/2023 15:22:25 07/25/19 24 07/25/2023 PT (PROT HROMB IN TIME) W INR prothrombin time 11.0 secon ds 9.3-11 .4 Not Available [facility] ([facility]) [address], [place], [address], 07/25/2023 16:27:47 07/25/19 24 07/25/2023 PT (PROT [...] Mecha nical Heart Valve s Not Available [facility] ([facility]) [address] , [place], [address], 07/25/2023 16:27:47 07/25/19 24 07/25/2023 COMP METAB OLIC PANEL sodium 142 mmol/ L 136-14 5 Not Available [facility] ([facility]) [address], [place], [address], 07/25/2023 16:32:05 07/25/19 24 07/25/2023 COMP METAB OLIC PANEL potassium 3.7 mmol/ L 3.6-5. 0 Not Available [facility] ([facility]) [address], [place], [address], 07/25/2023 16:32:05 07/25/19 24 07/25/2023 COMP METAB OLIC PANEL chloride 104 mmol/ L 98-107 Not Available [facility] ([facility]) [address], [place], [address], 07/25/2023 16:32:05 07/25/19 24 07/25/2023 COMP METAB OLIC PANEL carbon dioxide 29.1 mmol/ L 21.0-3 2.0 Not Available [facility] ([facility]) [address], [place], [address], 07/25/2023 16:32:05 07/25/19 24 07/25/2023 COMP METAB OLIC PANEL anion gap 12.6 Not Available [facility] ([facility]) [address] , [place], [address], 07/25/2023 16:32:05 07/25/19 24 07/25/2023 COMP METAB OLIC PANEL glucose 85 mg/dL 70-120 Not Available [facility] ([facility]) [address] , [place], [address], 07/25/2023 16:32:05 07/25/19 24 07/25/2023 COMP METAB OLIC PANEL BUN 16 mg/dL 7-18 Not Available [facility] ([facility]) [address] , [place], [address], 07/25/2023 16:32:05 07/25/19 24 07/25/2023 COMP METAB OLIC PANEL creatinine 0.8 mg/dL 0.6-1. 3 Not Available [facility] ([facility]) [address] , [place], [address], 07/25/2023 16:32:05 07/25/19 24 07/25/2023 COMP METAB OLIC PANEL glomerular filtration rate >60 mlper min 60- Not Available [facility] ([facility]) [address] , [place], [address], 07/25/2023 16:32:05 07/25/19 24 07/25/2023 COMP METAB OLIC PANEL total protein 7.6 g/dL 6.4-8. 2 Not Available [facility] ([facility]) [address], [place], [address], 07/25/2023 16:32:05 07/25/19 24 07/25/2023 COMP METAB OLIC PANEL albumin 3.5 g/dL 3.4-5. 0 Not Available [facility] ([facility]) [address], [place], [address], 07/25/2023 16:32:05 07/25/19 24 07/25/2023 COMP METAB OLIC PANEL globulin 4.1 Not Available [facility] ([facility]) [address], [place], [address], 07/25/2023 16:32:05 07/25/19 24 07/25/2023 COMP METAB OLIC PANEL alb/glob ratio 0.9 0.7-2 Not Available [facility] ([facility]) [address], [place], [address], 07/25/2023 16:32:05 07/25/19 24 07/25/2023 COMP METAB OLIC PANEL calcium 8.8 mg/dL 8.5-10 .5 Not Available [facility] ([facility]) [address], [place], [address], 07/25/2023 16:32:05 07/25/19 24 07/25/2023 COMP METAB OLIC PANEL bilirubin total 0.40 mg/dL 0.10-1 .00 Not Available [facility] ([facility]) [address] , [place], [address], 07/25/2023 16:32:05 07/25/19 24 07/25/2023 COMP METAB OLIC PANEL AST (SGOT) 24 U/L 0-37 Not Available [facility] ([facility]) [address] , [place], [address], 07/25/2023 16:32:05 07/25/19 24 07/25/2023 COMP METAB OLIC PANEL ALT (SGPT) 27 U/L 0-65 Not Available [facility] ([facility]) [address], [place], [address], 07/25/2023 16:32:05 07/25/19 24 07/25/2023 COMP METAB OLIC PANEL alk phosphatase 74 U/L 46-116 Not Available [facility] ([facility]) [address] [facility], [place], [address], 07/25/2023 16:32:05 07/25/19 24 07/27/2023 FACTO R VIII (8) ACTIV ITY factor VIII (8) activity 159 % 56-140 high Perfo rmed at: - [facility] [address] [place] [address] Lab Direc tor: Linda ho MD, Phone : [phone] Not Available [facility] ([facility]) [address] [facility], [place], [address], 07/27/2023 06:19:41 07/25/19 24 07/27/2023 PROTE IN C FUNTI ONAL protein C functional 102 % 73-180 Perfo rmed at: - [facility] [address] [place] [address] Lab Direc tor: Linda ho MD, Phone : [phone] Not Available [facility] ([facility]) [address] [facility], [place], [address], 07/27/2023 06:19:42 07/25/19 24 07/27/2023 PROTE IN [...] Perfo rmed at: BN - [facility] [address] , [place] [address] Lab Direc tor: Linda ho MD, Phone : [phone] Not Available [facility] ([facility]) [address], [place], [address], 07/27/2023 06:19:43 07/25/19 24 08/03/2023 FACTO R [...] G>A varia nt and Facto r V Tayler n (PMID : [id number] [id number]). Ad ditio nal risk facto rs [...] ders to discu ss resul ts at [phone] [phone] (8419 ). . Test Detai ls: Varia nt holly zed: c.*97 G>A, previ ously refer red to as G2021 0 A . Metho ds/Li mitat ions: DNA holly sis of the F2 gene ([id number]) was perfo rmed by P CR [...] e lindy cteri stics deter mined by [employer] rp. It has not been clear ed or appro raquel by the Food and Drug Admin istra tion. . Refer ences : Fernanda Macias, Russ FULTON, Sammy evans R, Radha KING, Lucas in [facility]; [facility] Pro fessi onal Pract ice and Guide lines Commi ttee. Adden dum: Rubio Lara g e of Medic al Brise[facility]da ics conse nsus state ment on facto r V Leide n muta tion testi ng. [facility] Med. 2020Sep 11. doi: 10.10 38/s4 1436- 021-0 110 8-x. PMID: 40771 767. . Randi smith JL. Proth rombi n Throm bophi za. 2005Jan 31 Updat ed 2020Aug 13 . In: Ricki MP, Bhaskar contreras HH, Mary RA, et al., ernestoito rs. GeneR ashley s(R) Inter net . Shyam gipson ([place]): Unive rsity of [facility]; 1992- 2020. Avail able from: [email or web address] :[email or web address] [...] Medic al Brise[facility]da ics and [employer] ([facility] ). [facility]. 2018 Jun;2 0(12) :148 9-149 8. doi: 10.10 38/s4 1436- 018-0 322-z . Epub 2017Apr 13. PMID: 33636 698. Not Available [facility] ([facility]) [address], [place], [address], 08/03/2023 13:12:27 07/25/19 24 08/03/2023 FACTO R II, DNA HOLLY SIS reviewed by: Tacho camp, PhD Direc tor, Molec ular Briseyda ics Perfo rmed at: TG - [facility] [place] [address] [facility] , [place] [address] Lab Dire tor: Yaneth Sullivan [facility] , Phone : [phone] Not Available [facility] ([facility]) [address], [place], [address], 08/03/2023 13:12:27 10/24/19 24 10/24/2023 CBC AUTO W DIFF WBC 6.9 K/uL 4.0-10 .5 Not Available [facility] ([facility]) [address], [place], [address], 10/24/2023 16:12:13 10/24/19 24 10/24/2023 CBC AUTO W DIFF RBC 5.7 M/mm3 4.7-6. 1 Not Available [facility] ([facility]) [address] , [place], [address], 10/24/2023 16:12:13 10/24/19 24 10/24/2023 CBC AUTO W DIFF HGB 14.7 gm/dL 13.5-1 8.0 Not Available [facility] ([facility]) [address] , [place], [address], 10/24/2023 16:12:13 10/24/19 24 10/24/2023 CBC AUTO W DIFF HCT 46.0 % 42.0-5 2.0 Not Available [facility] ([facility]) [address] , [place], [address], 10/24/2023 16:12:13 10/24/19 24 10/24/2023 CBC AUTO W DIFF MCV 80.4 fL 78-100 Not Available [facility] ([facility]) [address] , [place], [address], 10/24/2023 16:12:13 10/24/19 24 10/24/2023 CBC AUTO W DIFF MCH 25.7 pg 27-31 low Not Available [facility] ([facility]) [address], [place], [address], 10/24/2023 16:12:13 10/24/19 24 10/24/2023 CBC AUTO W DIFF MCHC 32.0 g/dL 32-36 Not Available [facility] ([facility]) [address], [place], [address], 10/24/2023 16:12:13 10/24/19 24 10/24/2023 CBC AUTO W DIFF RDW 14.3 % 11.5-1 4.0 high Not Available [facility] ([facility]) [address] , [place], [address], 10/24/2023 16:12:13 10/24/19 24 10/24/2023 CBC AUTO W DIFF platelet count 258 K/uL 150-45 0 Not Available [facility] ([facility]) [address] , [place], [address], 10/24/2023 16:12:13 10/24/19 24 10/24/2023 CBC AUTO W DIFF MPV 9.6 fL 6-9.5 high Not Available [facility] ([facility]) [address] , [place], [address], 10/24/2023 16:12:13 10/24/19 24 10/24/2023 CBC AUTO W DIFF neutrophil% 70.1 % 43-65 high Not Available [facility] ([facility]) [address] [place], [address], 10/24/2023 16:12:13 10/24/19 24 10/24/2023 CBC AUTO W DIFF lymphocyte% 18.4 % 20.5-4 5.5 low Not Available [facility] ([facility]) [address] [place], [address], 10/24/2023 16:12:13 10/24/19 24 10/24/2023 CBC AUTO W DIFF monocyte% 8.7 % 5.5-11 .7 Not Available [facility] ([facility]) [address] [place], [address], 10/24/2023 16:12:13 10/24/19 24 10/24/2023 CBC AUTO W DIFF eosinophil% 2.3 % 0.9-2. 9 Not Available [facility] ([facility]) [address] [place], [address], 10/24/2023 16:12:13 10/24/19 24 10/24/2023 CBC AUTO W DIFF basophil% 0.4 % 0.2-1. 0 Not Available [facility] ([facility]) [address] [place], [address], 10/24/2023 16:12:13 10/24/19 24 10/24/2023 CBC AUTO W DIFF immature granulocytes % 0.1 % 0.0-0. 8 Not Available [facility] ([facility]) [address] [place], [address], 10/24/2023 16:12:13 10/24/19 24 10/24/2023 CBC AUTO W DIFF nucleated red blood cells % 0.0 % Not Available [facility] ([facility]) [address] [place], [address], 10/24/2023 16:12:13 10/24/19 24 10/24/2023 CBC AUTO W DIFF neutrophil# 4.8 K/uL 2.2-4. 8 Not Available [facility] ([facility]) [address], [place], [address], 10/24/2023 16:12:13 10/24/19 24 10/24/2023 CBC AUTO W DIFF lymphocyte# 1.3 cell/ mcL 1.3-2. 9 Not Available [facility] ([facility]) [address], [place], [address], 10/24/2023 16:12:13 10/24/19 24 10/24/2023 CBC AUTO W DIFF monocyte# 0.6 cell/ mcL 0.3-0. 8 Not Available [facility] ([facility]) [address], [place], [address], 10/24/2023 16:12:13 10/24/19 24 10/24/2023 CBC AUTO W DIFF eosinophil# 0.2 cell/ mcL 0-0.2 Not Available [facility] ([facility]) [address] [facility], [place], [address], 10/24/2023 16:12:13 10/24/19 24 10/24/2023 CBC AUTO W DIFF basophil# 0.0 cell/ mcL 0.0-1. 0 Not Available [facility] ([facility]) [address] [facility], [place], [address], 10/24/2023 16:12:13 10/24/19 24 10/24/2023 CBC AUTO W DIFF immature gramulocytes # 0.01 K/uL Not Available [facility] ([facility]) [address] [facility], [place], [address], 10/24/2023 16:12:13 10/24/19 24 10/24/2023 CBC AUTO W DIFF nucleated red blood cells # 0.00 K/uL Not Available [facility] ([facility]) [address], [place], [address], 10/24/2023 16:12:13 10/24/19 24 10/24/2023 CBC AUTO W DIFF manual differential NO Not Available [facility] ([facility]) [address], [place], [address], 10/24/2023 16:12:13 10/24/19 24 10/24/2023 COMP METAB OLIC PANEL sodium 139 mmol/ L 136-14 5 Not Available [facility] ([facility]) [address] , [place], [address], 10/24/2023 16:42:07 10/24/19 24 10/24/2023 COMP METAB OLIC PANEL potassium 4.0 mmol/ L 3.6-5. 0 Not Available [facility] ([facility]) [address] , [place], [address], 10/24/2023 16:42:07 10/24/19 24 10/24/2023 COMP METAB OLIC PANEL chloride 104 mmol/ L 98-107 Not Available [facility] ([facility]) [address] , [place], [address], 10/24/2023 16:42:07 10/24/19 24 10/24/2023 COMP METAB OLIC PANEL carbon dioxide 28.1 mmol/ L 21.0-3 2.0 Not Available [facility] ([facility]) [address] , [place], [address], 10/24/2023 16:42:07 10/24/19 24 10/24/2023 COMP METAB OLIC PANEL anion gap 10.9 Not Available [facility] ([facility]) [address] , [place], [address], 10/24/2023 16:42:07 10/24/19 24 10/24/2023 COMP METAB OLIC PANEL glucose 99 mg/dL 70-120 Not Available [facility] ([facility]) [address], [place], [address], 10/24/2023 16:42:07 10/24/19 24 10/24/2023 COMP METAB OLIC PANEL BUN 16 mg/dL 7-18 Not Available [facility] ([facility]) [address], [place], [address], 10/24/2023 16:42:07 10/24/19 24 10/24/2023 COMP METAB OLIC PANEL creatinine 0.9 mg/dL 0.6-1. 3 Not Available [facility] ([facility]) [address], [place], [address], 10/24/2023 16:42:07 10/24/19 24 10/24/2023 COMP METAB OLIC PANEL glomerular filtration rate >60 mlper min 60- Not Available [facility] ([facility]) [address], [place], [address], 10/24/2023 16:42:07 10/24/19 24 10/24/2023 COMP METAB OLIC PANEL total protein 7.2 g/dL 6.4-8. 2 Not Available [facility] ([facility]) [address], [place], [address], 10/24/2023 16:42:07 10/24/19 24 10/24/2023 COMP METAB OLIC PANEL albumin 3.6 g/dL 3.4-5. 0 Not Available [facility] ([facility]) [address], [place], [address], 10/24/2023 16:42:07 10/24/19 24 10/24/2023 COMP METAB OLIC PANEL globulin 3.6 Not Available [facility] ([facility]) [address], [place], [address], 10/24/2023 16:42:07 10/24/19 24 10/24/2023 COMP METAB OLIC PANEL alb/glob ratio 1.0 0.7-2 Not Available [facility] ([facility]) [address], [place], [address], 10/24/2023 16:42:07 10/24/19 24 10/24/2023 COMP METAB OLIC PANEL calcium 8.6 mg/dL 8.5-10 .5 Not Available [facility] ([facility]) [address], [place], [address], 10/24/2023 16:42:07 10/24/19 24 10/24/2023 COMP METAB OLIC PANEL bilirubin total 0.50 mg/dL 0.10-1 .00 Not Available [facility] ([facility]) [address], [place], [address], 10/24/2023 16:42:07 10/24/19 24 10/24/2023 COMP METAB OLIC PANEL AST (SGOT) 23 U/L 0-37 Not Available [facility] ([facility]) [address], [place], [address], 10/24/2023 16:42:07 10/24/19 24 10/24/2023 COMP METAB OLIC PANEL ALT (SGPT) 39 U/L 0-65 Not Available [facility] ([facility]) [address], [place], [address], 10/24/2023 16:42:07 10/24/19 24 10/24/2023 COMP METAB OLIC PANEL alk phosphatase 80 U/L 46-116 Not Available [facility] ([facility]) [address], [place], [address], 10/24/2023 16:42:07 10/25/19 24 10/26/2023 SEDIM ENTAT ION RATE- WESTE RGREN sedimentatio n rate-westerg los 5 mm/HR 0-15 Not Available [facility] ([facility]) [address] [facility], [place], [address], 11/03/2023 15:11:19 10/25/19 24 10/27/2023 C-CHANA CTIVE PROTE IN, QUANT C-reactive protein, quant 15 mg/L 0-10 above high normal Not Available [facility] ([facility]) [address] [facility], [place], [address], 11/03/2023 15:11:21 04/23/20 24 04/23/2024 C-CHANA CTIVE PROTE IN (CRP) C-reactive protein, quant 1.1 mg/dL 0.05-0 .300 high Not Available [facility] ([facility]) [address] [facility], [place], [address], 04/23/2024 10:36:29 04/23/20 24 04/23/2024 SED RATE sed rate auto 4 0-15 Not Available [facility] ([facility]) [address] [facility], [place], [address], 04/23/2024 10:54:51 11/20/19 24 11/20/2023 arti melgar x US lwr RT ext [facility] [address] [place] [address] Phone: Fax: Name: GAYATHRI DENNIS Exam Date: 024 : 1979 Age 43 years Gender : M Access ion: [id number] Physic lou: HENEGA R, LUCI Facili ty: [facility] Facili ty HSV: Outpat ient Exam: [...] you for referr ing GAYATHRI DENNIS to [facility]. Legall y authen ticate d by YANELIS DÍAZ 11-19 11:51: 02 CC'ed Logic: Orderi ng Provid er: SPENCER OSUNA Attend ing Provid er: SPENCER OSUNA Referr ing Provid er: SPENCER OSUNA Admitt ing Provid er: SPENCER OSUNA [address] - Physical Therapy [address] [facility], [place], [address], 11/20/2023 12:58:54 11/20/19 24 11/20/2023 CT[facility] angio gram[facility] [address] [place] [address] Phone: Fax: Name: GAYATHRI DENNIS Exam Date: : 1979 Age 43 years Gender : M Access ion: [id number] Physic lou: LUCI BRADFORD Facili ty: [facility] Facili ty HSV: Outpat ient Exam: [...] ious. Dictat ed By: Jose Luciano Transc ribernesto By: Jose Sebastian Transc ribed On: 12:06 PM Legall y authen ticate d by YANELIS DÍAZ 2023-0 11-19 12:06: 58 Electr onical ly signed by: Jose Luciano 5/13/2 024 Thank you for referr ing GAYATHRI DENNIS Gilberto to [facility]. Legall y authen ticate d by YANELIS Macias IVO 2023-11-19 12:06: 58 CC'ed Logic: Orderi ng Provid er: SPENCER OSUNA Attend ing Provid er: SPENCER OSUNA Referr ing Provid er: SPENCER OSUNA Admitt ing Provid er: SPENCER OSUNA [email or web address] [facility] - Physical Therapy [address] [place] [address], [place], [address], 11/21/2023 16:18:56 Result Notes Documentation Provider Name and Address Organization Details Recorded Time Ct, Angiogram, Chest, W/ Contrast : [address] [address] Name: MITCHELLWON RAYO Exam Date: 11/20/2023 : 1980 Age 43 years Gender: M Physician: LUCI BARNES Facility: [facility] Facility HSV: Outpatient Exam: CTA CHEST PE EXAM: CT PULMONARY ANGIOGRAM INDICATION: SOB TECHNIQUE: Helical CT chest with IV contrast, optimized for visualization of pulmonary arteries was performed. Axial images were obtained from the lung apex to the mid abdomen by computed tomography. This study was performed with techniques to keep radiation doses as low as reasonably achievable, (ALARA). Individualized dose reduction techniques using automated exposure control or adjustment of mA and/or kV according to the patient size were employed. Coronal and sagittal reformats was performed. COMPARISON: None FINDINGS: CHEST: Pulmonary Angiogram: Inadequate opacification of the subsegmental pulmonary arteries. No obvious acute pulmonary embolus. Thyroid: Small hypodense thyroid nodules.. Heart: No cardiomegaly. No pericardial effusion. Vascular: Thoracic aorta is normal caliber. No coronary artery calcifications. Lymph Nodes: No mediastinal or hilar lymphadenopathy. No axillary or supraclavicular lymphadenopathy. Lungs/Airways: Mild central bronchial wall thickening. Streaky bilateral atelectasis. Small nodular opacities in the right lower lobe measuring up to 9 mm may be infectious. Mosaic attenuation of the lungs may suggest underlying air-trapping. No pleural effusion. No pneumothorax. Airways are patent. Esophagus: Unremarkable. Upper Abdomen: No acute upper abdomen findings. Bones: No suspicious lesion IMPRESSION: No definite acute pulmonary embolus. Mild bronchitis with right lower lobe nodular opacities measuring up to 9 mm which may be infectious. Dictated By: Jose Luciano Transcribed By: Jose Sebastian Transcribed On: 11/20/2023 12:06 PM Legally authenticated by RENALDO DÍAZ 2023-11-20 12:06:58 Electronically signed by: Jose Luciano 11/20/2023 Thank you for referring WON DENNIS to [facility]. Legally authenticated by RENALDO DÍAZ 2023-11-20 12:06:58 CC'ed Logic: Ordering Provider: MOLLY OSUNA Attending Provider: MOLLY OSUNA Referring Provider: MOLLY OSUNA Admitting Provider: MOLLY jaramillo [place] - [facility] - [place] & [place] 11/21/2023 16:18:56 Problems Name Problem SNOMED Code Status Onset Date Resolution Date Notes Provider Name and Address Organization Details Recorded Time Methicillin resistant Staphylococ cus aureus infection 124135867 Active 2023 Amy jaramillo [place] - [facility] & [place] 10:16:00 High risk medication monitoring indicated 6721639759714 9103 Active 2023 YVON Pal[place] - [facility] - [place] & [place] 10:16:36 Problem Notes None recorded. Procedures Surgical History Date Name Laterality Status Provider Name and Address Organization Details Recorded Time 03/26/20 [address], [place], [address], [place] [facility] & [place] 03/18/2024 14:56:10 10/24/19 24 Venipuncture completed [address], [place], [address], [place] - [facility] & [place] 10/23/2023 10:53:19 07/25/19 24 [facility] [place] 07/25/2023 14:41:20 amputation of lower limb [facility] [place] 07/25/2023 13:57:05 Imaging Results None recorded. Procedure Notes None recorded. Medical Equipment None Reported. Allergies Allergen ID Allergen Name Allergen Category Reaction Reaction Severity Criticality Documentation Date Start Date Code Code System Note Provider Name and Address Organization Details Recorded Time 661184 cefdinir medicatio n Not available Not available Not available 06/02/2023 68726 RxNorm Isabel jaramillo, [facility] & [place] 10:06:00 Medications Name Sig Start Date Stop [...] active Not Available Not Available Not Available [facility] 10 billion cell-200 mg sprinkle capsule active [...] [degF] 96 % 96 % 81 /min 019162. 75 g 81 /min Isabel Kay [facility] & [place] 4 08:59:33 Date Recorded Body weight Body temperature Heart rate Oxygen saturation Oxygen saturation in Arterial blood by Pulse oximetry Systolic And Diastolic Provider Name and Address Organization Details Last Updated DateTime 4 334027. 53 g 97.8 [degF] 89 /min 95 % 95 % 134/82 mm[Hg] Sarahsri Hendersonmayank [facility] & [place] 4 13:54:07 Date Recorded Body height Body mass index (BMI) Body weight Body temperature Heart rate Oxygen saturation Oxygen saturation in Arterial blood by Pulse oximetry Systolic And Diastolic Provider Name and Address Organization Details Last Updated DateTime 4 182.88 cm 43.3 kg/m2 887024. 97 g 98 [degF] 95 /min 96 % 96 % 137/92 mm[Hg] Sarahsri Hendersonmayank [facility] & [place] 4 14:44:48 Date Recorded Body height Body mass index (BMI) Body weight Body temperature Oxygen saturation Oxygen saturation in Arterial blood by Pulse oximetry Heart rate Systolic And Diastolic Provider Name and Address Organization Details Last Updated DateTime 4 182.88 cm 43.2 kg/m2 323532. 81 g 98.6 [degF] 95 % 95 % 86 /min 134/84 mm[Hg] Amy Aquino [facility] & [place] 4 08:59:12 Date Recorded Body height Body mass index (BMI) Body weight Body temperature Oxygen saturation Oxygen saturation in Arterial blood by Pulse oximetry Heart rate Systolic And Diastolic Provider Name and Address Organization Details Last Updated DateTime 4 182.88 cm 42.9 kg/m2 053330. 19 g 98 [degF] 94 % 94 % 70 /min 140/80 mm[Hg] Kalei Gibbs [place] - [facility] & [place] 4 09:24:00 Social History None recorded. Functional Status Question Answer Note LastModified by Organizat ion Details LastModified Time Do you use any illicit or recreational drugs? No [email or web address] Information not available 07/25/2023 What is your level of alcohol consumption? Occasional [email or web address] Information not available 07/25/2023 Mental Status None recorded. Family History Nothing Reported. Medical History No medical history recorded. Immunizations Vaccine Type Date Status Note Provider Nam e and Address Organization Details Recorded Time Td (adult), 2 Lf tetanus toxoid, preservative free, adsorbed 6 completed Sarah jaramillo, [facility] & [place] 07/25/2023 13:54:15 Past Encounters Encounter ID Performer Location Encounter Start Date Encounter Closed Date Diagnosis/Indication Diagnosis SNOMED-CT Code Diagnosis ICD10 Code Diagnosis Note [id number] Randy Torres MD [facility] [address] [place] [address] 06/02/2023 09:54:50 06/02/2023 10:26:43 Osteomyelitis 04022273 M86.9 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 Influenza caused by Influenza A virus 907326545 J09.X2 Resolved.. No further oseltamivi r needed. High risk medication monitoring indicated 6964473797 3237936 Z76.89 Related to the daptomycin . I will check a total CK and continue to follow serial levels of this enzyme to make sure he develops no rhabdomyol ysis. [id number] Randy Torres MD [facility] [address] [place] [address] 06/09/2023 10:23:03 06/09/2023 10:54:12 Osteomyelitis 16850410 M86.9 Occurring in the right BKA stump [...] consolidat ion doxycyclin e at that time. Tamekaicilli n resistant Staphylococcus aureus infection 275879484 A49.02 As above High risk medication monitoring indicated 3951217792 5662802 Z76.89 This is related to the daptomycin . I will continue to monitor his total CK levels closely. [id number] Randy Torres MD [facility] [address] [place] [address] 06/28/2023 10:37:09 06/28/2023 11:22:08 Osteomyelitis 26641479 M86.9 Occurring in the right BKA stump [...] will repeat his LFTs again next week. Jovanny clark resistant Staphylococcus aureus infection 326320152 A49.02 As above [id number] Randy Torres MD [facility] [address] [place] [address] 07/06/2023 09:38:06 07/06/2023 10:00:10 Osteomyelitis 61163742 M86.9 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 Methicilli n resistant Staphylococcus aureus infection 727862145 A49.02 As above Adverse re action to drug 65112938 T50.905A Related to doxycyclin e. This is gastrointe stinal in nature. I will check his liver function testing to make sure he is not developing any hepatotoxi city. I will drop the dose to 100 mg per day. I want him to continue to take it with food. I will re-evaluat e next week. [id number] Randy Torres MD [facility] [address] [place] [address] 07/12/2023 08:53:12 07/12/2023 09:54:35 Osteomyelitis 36107254 M86.9 Occurring in the right BKA stump [...] month. Methicilli n resistant Staphylococcus aureus infection 389474955 A49.02 As above [id number] Luci Barnes PA-C [facility] [address] [place] [address] 07/25/2023 13:39:19 07/26/2023 06:33:52 Deep venous thrombosis 039861186 I82.409 Patient has a history of osteomyeli [...] performed when patient was hospitaliz ed at [facility] on May 26, 2023 with normal antithromb in 3 activity. No evidence of factor 5 Leiden mutation. Discussed with patient will order additional labs for further evaluation acquired hypercoagu lable disorder today. Discussed will likely continue on least the prophylact ic dose of Eliquis lifelong due to separate occurrence s of blood clots. Pulmonary embolism 73341 003 I26.99 Patient has a history of [...] s of blood clots. Anticoagulant therapy 18 7083508 Z79.01 Patient continues on Eliquis 5 mg 1 tab p.o. b.i.d.. He is tolerating without trouble. Discussed will likely continue on least the prophylact ic dose of Eliquis lifelong due to separate occurrence s of blood clots. [id number] Luci Barnes PA-C [facility] [address] [facility] [address] [place] [address] 10/24/2023 14:29:27 10/24/2023 15:33:34 Deep venous thrombosis 369177985 I82.409 Patient has a history of osteomyeli [...] performed when patient was hospitaliz ed at [facility] on May 26, 2023 with normal [...] Will follow up labs today. Pulmonary embolism 59583 003 I26.99 Patient has a history of [...] follow up labs today. Anticoagulant therapy 18 1139103 Z79.01 Patient continues on Eliquis 5 mg 1 tab p.o. b.i.d.. He is tolerating without trouble. Discussed will continue on least the prophylact ic dose of Eliquis lifelong due to separate occurrence s of blood clots. Will follow up venous duplex of lower extremity and chest CTA to make sure no evidence of embolism before reducing Eliquis dose to 2.5 mg b.i.d. [id number] Randy Torres MD [facility] [address] [place] [address] 10/25/2023 08:49:58 10/25/2023 10:57:40 Osteomyelitis 53921331 M86.9 Occurring in the right BKA stump [...] months. Methicilli n resistant Staphylococcus aureus infection 065428444 A49.02 As above High risk medication monitoring indicated 1691716624 1040805 Z76.89 This is related to the chronic suppressiv e doxycyclin e. I reviewed his liver function testing from yesterday. There is no evidence of any hepatotoxi city. I will continue to monitor this at each visit. I also counseled him about the risk of photosensi tivity with doxycyclin e. [id number] Randy Torres MD [facility] Infect[facility] Disease -[address] [facility] [address] [place] [address] 04/23/2024 09:14:33 04/23/2024 09:34:49 Osteomyelitis 88744125 M86.9 Occurring in the right BKA stump [...] month. Methicilli n resistant Staphylococcus aureus infection 701234869 A49.02 As above Health Concerns Section Related Observation LastModified by Organization Detai ls LastModified Time None Recorded Concern Status LastModified by Organization Details LastModified Time None Recorded Advance Directives Directive None Recorded Payers Insurance Date Sequence Insurance Name Policy Number Policy Brantley Covered Member ID Brantley Member ID Guarantor Name 01/27/2024 1 [employer] [id number] Won Dennsi [id number] Won Dennis 05/18/2024 1 LELECaprice Won Dennis [id number] Won Dennis Notes Date Note Type Note Provider Name and Address Organization Details Recorded Time 07/12/2023 text/html This is a 42-yea r-old white male following up with me for right BKA stump osteomyelitis due to [...] incision remains completely healed. Randy Torres MD [address], [place], [address], [facility] & [place] 07/12/2023 09:50:44 07/25/2023 text/html 43-year-old male presents [...] Labs performed when patient was hospitalized at [facility] on May 26, 2023 with normal antithrombin 3 activity. No evidence of factor 5 Leiden mutation. Discussed with patient will order additional labs for further evaluation acquired hypercoagulable disorder today. Discussed will likely continue on least the prophylactic dose of Eliquis lifelong due to separate occurrences of blood clots. Luci Barnes PA-C [address], [place], [address], [facility] & [place] 07/25/2023 15:32:35 10/24/2023 text/html 43-year-old male presents [...] Labs performed when patient was hospitalized at [facility] on May 26, 2023 with normal [...] b.i.d. Will follow up labs today. Luci Barnes PA-C [address], [place], [address], [facility] & [place] 10/24/2023 15:43:34 10/25/2023 text/html This is a 42-yea r-old white male following up with il for right BKA stump osteomyelitis due to [...] He is doing well. 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 Since his debridement, he completed 6 weeks of intravenous daptomycin and 1 year of suppressive doxycycline. He is remained infection free. His stump is fully healed. No fever. No other issues. He is tolerating the doxycycline well. Randy Torres MD [address] [facility], [place], [address], [place] [facility] [place] 04/23/2024 09:31:22
--- OUTSIDE RECORDS SUMMARY | 2025-01-20 17:42 | XMS_ITS | Encounter Summary ---
Author Organization Healthcare Address [address] [place] [address] Care Team Providers Care Electromechanical Assembly Technician Name Role Phone Unavailable Primary Care Provider Unavailabl e Encounter Details Date Type Department Care Team (Late st Contact Info) Description 08/12/2022 Lab Requisition [facility] [address] [place] [address] Sushil Dean MD [address] [place] [address] Encounter for general adult medical examination without [...] Comments BONE CULTURE AND GRAM STAIN Routine 08/12/2022 8:42 AM EST Encounter for general adult medical examination without abnormal findings ANAEROBIC CULTURE Routine 08/12/2022 8:4 2 AM EST Encounter for general adult medical examination without abnormal findings documented in this encounter Results * Anaerobic Culture (08/12/2022 8:42 AM EST) Culture No anaerobes isolated 05/2023 3:45 PM EST [facility] Culture Corynebacterium tuberculostearicum 08/20/2022 3:45 PM EST [facility] Comment: This isolate has been identified using the FDA Approved [employer] CA System The organism value for this result has been updated. These results have been appended to the previously preliminary verified report. Bone Specimen from bone / Unknown 08/12/2022 8:42 AM EST 08/12/2022 5:40 PM EST Narrative Organism Antibiotic Method Susceptibility Corynebacterium tuberculostearicum Erythromycin ETEST 256.0 ug/ml: Resistant Comment:Test not FDA approved. Results for research use only. Corynebacterium tuberculostearicum Gentamicin ETEST 1.0 ug/ml: Susceptible Comment:Test not FDA approved. Results for research use only. Corynebacterium tuberculostearicum Penicillin G ETEST 0.50 ug/ml: Intermediate Comment:Test not FDA approved. Results for research use only. Corynebacterium tuberculostearicum Vancomycin ETEST 0.75 ug/ml: Susceptible Comment:Test not FDA approved. Results for research use only. Sushil Dean MD LAB MICROBIOLOGY - GENERAL O ERIC Final Result Performing Organization Address City/[facility] de Phone Number [facility] [address] [place] [address] * Bone Culture and Gram Stain (08/12/2022 8:42 AM EST) Culture No growth at day 4 2022 10:20 PM EST [facility] Gram Stain Result Moderate Polymorphonuclear leukocytes 08/16/2022 10:20 PM EST [facility] Gram Stain Result No organisms seen 08/16/2022 10:20 PM EST [facility] Bone Specimen from bone / Unknown 08/12/2022 8:42 AM EST 08/12/2022 5:40 PM EST Sushil Dean MD LAB MICROBIOLOGY - GENERAL O RDERABLES Final Result Performing Organization Address City/[facility] de Phone Number [facility] [address] [place] [address] documented in this encounter Visit Diagnoses Diagnosis Encounter for general adult medical examination without abnormal findings documented in this encounter
--- OUTSIDE RECORDS SUMMARY | 2025-01-20 17:42 | XMS_ITS | Encounter Summary ---
Author Organization Healthcare Address [address] [place] [address] Care Team Providers Care Refractory Bricklayer Name Role Phone Unavailable Primary Care Provider Unavailabl e Encounter Details Date Type Department Care Team (Late st Contact Info) Description 07/20/2022 Lab Requisition [facility] [address] [place] [address] Sushil Dean MD [address] [place] [address] Encounter for general adult medical examination without [...] Comments BONE CULTURE AND GRAM STAIN Routine 07/20/2022 1:36 PM EST Encounter for general adult medical examination without abnormal findings ANAEROBIC CULTURE Routine 07/20/2022 1:3 6 PM EST Encounter for general adult medical examination without abnormal findings documented in this encounter Results * Anaerobic Culture (07/20/2022 1:36 PM EST) Culture No growth at day 4 07/27/2022 11:32 AM EST [facility] Bone Specimen from bone / Unknown 07/20/2022 1:36 PM EST 07/20/2022 5:52 PM EST us Sushil Dean MD LAB MICROBIOLOGY - GENERAL O RDERABLES Final Result Performing Organization Address City/[facility] Co de Phone Number [facility]ALTHCARE LAB [address] [place] [address] * Bone Culture and Gram Stain (07/20/2022 1:36 PM EST) Culture No growth at day 4 2022 9:16 AM EST [facility] Gram Stain Result Rare Polymorphonuclear leukocytes 07/24/2022 9:16 AM EST [facility] Gram Stain Result No organisms seen 07/24/2022 9:16 AM EST [facility] Bone Specimen from bone / Unknown 07/20/2022 1:36 PM EST 07/20/2022 5:52 PM EST us Sushil Dean MD LAB MICROBIOLOGY - GENERAL O RDERABLES Final Result Performing Organization Address City/[facility] Co de Phone Number [facility] [address] [place] [address] documented in this encounter Visit Diagnoses Diagnosis Encounter for general adult medical examination without abnormal findings documented in this encounter
--- OUTSIDE RECORDS SUMMARY | 2025-01-20 17:42 | XMS_ITS | Encounter Summary ---
Author Organization Healthcare Address [address] [place] [address] Care Team Providers Care Real Estate Office Manager Name Role Phone Unavailable Primary Care Provider Unavailabl e Encounter Details Date Type Department Care Team (Late st Contact Info) Description 10/19/2022 Lab Requisition [facility] [address] [place] [address] Sushil Dean MD [address] [place] [address] Encounter for general adult medical examination without [...] Comments BONE CULTURE AND GRAM STAIN Routine 10/19/2022 5:17 PM EDT Encounter for general adult medical examination without abnormal findings ANAEROBIC CULTURE Routine 10/19/2022 5:1 7 PM EDT Encounter for general adult medical examination without abnormal findings documented in this encounter Results * (ABNORMAL) Anaerobic Culture (10/19/2022 5:17 PM EDT) Culture No anaerobes isolated 10/23/2022 12:32 PM EDT [facility] Culture Isolated from broth only: Neelima albicans(A) 10/23/2022 12:32 PM EDT [facility] Comment: This result was determined by MALDI tof mass spectrometry using the [employer] database and is for research use only. The organism value for this result has been updated. These results have been appended to the previously preliminary verified report. Bone Specimen from bone / Unknown 10/19/2022 5:17 PM EDT 10/19/2022 9:49 PM EDT Sushil Dean MD LAB MICROBIOLOGY - GENERAL O RDERABLES Final Result Performing Organization Address [facility] de Phone Number [facility]ARE [facility] [address] [place] [phone] * Bone Culture and Gram Stain (10/19/2022 5:17 PM EDT) Culture No growth at day 4 2022 8:14 AM EDT [facility] Gram Stain Result Few Polymorphonuclear leukocytes 10/23/2022 8:14 AM EDT [facility] Gram Stain Result No organisms seen 10/23/2022 8:14 AM EDT [facility] Bone Specimen from bone / Unknown 10/19/2022 5:17 PM EDT 10/19/2022 9:49 PM EDT Sushil Dean MD LAB MICROBIOLOGY - GENERAL O RDERAADDI Final Result Performing Organization Address [facility] Phone Number [facility] [address] [place] [address] documented in this encounter Visit Diagnoses Diagnosis Encounter for general adult medical examination without abnormal findings documented in this encounter
--- OUTSIDE RECORDS SUMMARY | 2025-01-20 17:42 | XMS_ITS | Encounter Summary ---
Author Organization Healthcare Address [address] [place] [address] Care Team Providers Care Tanning Wheel Operator Name Role Phone Unavailable Primary Care Provider Unavailabl e Encounter Details Date Type Department Care Team (Late st Contact Info) Description 10/01/2022 Lab Requisition [facility] [address] [place] [address] Sushil Dean MD [address] [facility] [place] [address] Encounter for general adult medical examination without [...] Comments BONE CULTURE AND GRAM STAIN Routine 09/30/2022 10:40 PM EDT Encounter for general adult medical examination without abnormal findings documented in this encounter Results * (ABNORMAL) Bone Culture and Gram Stain (09/30/2022 10:40 PM EDT) Culture Light Growth 10/04/2022 2:17 PM EDT [facility] Culture Neelima albicans(A) 10/04 2:17 PM EDT [facility] Comment: This isolate has been identified using the FDA Approved [employer] CA System The organism value for this result has been updated. These results have been appended to the previously preliminary verified report. Edited result: Previously reported as Yeast on 10/04/2022 at 0705 EDT. Gram Stain Result No polymorphonuclear leukocytes seen 10/04/2022 2:17 PM EDT [facility] Gram Stain Result No organisms seen 10/04/2022 2:17 PM EDT [facility] Bone 09/30/2022 10:4 0 PM EDT 10/01/2022 2:10 AM EDT Narrative [facility] - 10/04/2022 2:17 PM EDT [facility]er [id number] FOR SUSCEPTIBILITIES ON NEELIMA ALBICANS us Sushil Dean MD LAB MICROBIOLOGY - GENERAL O RDERABLES Final Result [facility] [address] [place] [address] documented in this encounter Visit Diagnoses Diagnosis Encounter for general adult medical examination without abnormal findings documented in this encounter
--- OUTSIDE RECORDS SUMMARY | 2025-01-20 17:42 | XMS_ITS | Encounter Summary ---
Author Organization Healthcare Address [address] 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 [place] [address] Encounter for general adult medical examination without [...] Procedure Name Priority Date/Time Associated Diagnosis Comments FUNGAL CULTURE, TISSUE AND LILLY Routine 05/13/2023 9:17 AM EDT Encounter for general adult medical examination without abnormal findings BONE CULTURE AND GRAM STAIN Routine 05/13/2023 9:17 AM EDT Encounter for general adult medical examination without abnormal findings ANAEROBIC CULTURE Routine 05/13/2023 9:1 7 AM EDT Encounter for general adult medical examination without abnormal findings documented in this encounter Results * Fungal Culture, Tissue and LILLY (05/13/2023 9:17 AM EDT) Culture Reading Mycological 4 Weeks No Fungal Growth at 4 Weeks 06/12/2023 7:15 AM EST [facility] LILLY No fungal elements seen 06/12/2023 7:15 AM EST [facility] Bone 05/13/2023 9:17 AM EDT 05/13/2023 1:25 PM EDT us Sushil Dean MD LAB MICROBIOLOGY - GENERAL O RDERABLES Final Result Performing Organization Address [facility] Co de Phone Number [facility] [address] [place] [address] * Anaerobic Culture (05/13/2023 9:17 AM EDT) Culture No growth at day 4 05/20/2023 10:35 AM EST [facility] Bone 05/13/2023 9:17 AM EDT 05/13/2023 1:25 PM EDT us Sushil Dean MD LAB MICROBIOLOGY - GENERAL O RDERABLES Final Result Performing Organization Address [facility] de Phone Number [facility] [address] [place] [address] * Bone Culture and Gram Stain (05/13/2023 9:17 AM EDT) Culture No growth at day 4 2022 11:43 AM EST [facility] Gram Stain Result No organisms seen 05/16/2023 11:43 AM EST [facility] Gram Stain Result No polymorphonuclear leukocytes seen 05/16/2023 11:43 AM EST [facility] Bone 05/13/2023 9:17 AM EDT 05/13/2023 1:25 PM EDT us Sushil Dean MD LAB MICROBIOLOGY - GENERAL O RDERABLES Final Result Performing Organization Address [facility] de Phone Number [facility] [address] [place] [address] documented in this encounter Visit Diagnoses Diagnosis Encounter for general adult medical examination without abnormal findings documented in this encounter
--- OUTSIDE RECORDS SUMMARY | 2025-01-20 17:42 | XMS_ITS | Encounter Summary ---
Author Organization [facility] Address [address] [place] [address] Care Team Providers Care Hand Knitter Name Role Phone Unavailable Primary Care Provider Unavailabl e Encounter Details Date Type Department Care Team (Late st Contact Info) Description 10/03/2022 Lab Requisition [facility] [address] [place] [address] Dallia Cox MD [address] [place], [place] [id number] Encounter for general adult medical examination without [...] Procedure Name Priority Date/Time Associated Diagnosis Comments ADDITIONAL SUSCEPTIBILITIES AND/OR IDENTIFICATION Routine 09/30/2022 10:26 PM EDT Encounter for general adult medical examination without abnormal findings documented in this encounter Results * (ABNORMAL) Additional Susceptibilities and/or Identification (09/30/2022 10:26 PM EDT) Culture Neelima albicans(A) 10/05/2022 11:58 AM EDT [facility] Comment: This result was determined by MALDI tof Mass spectrometry. This assay was developed and its performance characteristics determined by [facility] as appropriate for clinical purposes. This assay has not been cleared or approved by the FDA, but is performed in a CLIA regulated laboratory that is qualified to perform high complexity testing. Other Specimen from wound / Unknown 09/30/2022 10:26 PM EDT 10/03/2022 11:03 AM EDT Narrative Organism Antibiotic Method Susceptibility Neelima albicans Caspofungin ALIZA 0.03 ug/ml: Susceptible Neelima albicans Micafungin ALIZA 0.015 ug/ml: Susceptible Neelima albicans Fluconazole ALIZA 0.25 ug/ml: Susceptible Neelima albicans Voriconazole ALIZA 0.008 ug/ml: Susceptible Dalila Cox MD LAB MICROBIOLOGY - GENERAL TABBY WHYTE Edited Result - Final [facility] [address] [place] [address] documented in this encounter Visit Diagnoses Diagnosis Encounter for general adult medical examination without abnormal findings documented in this encounter
--- NOTE | 2025-01-20 17:45 | XR_ITS ---
PROCEDURE INFORMATION: Exam: XR Chest Exam date and time: 01/20/2025 5:57 PM Age: 44 years old Clinical indication: Shortness of breath; Additional info: Short of breath TECHNIQUE: Imaging protocol: Radiologic exam of the chest. Views: 1 view. COMPARISON: CT ANGIO CHEST PE PROTOCOL 10/31/2024 1:50 PM FINDINGS: Lungs: No consolidation. Pleural spaces: No pleural effusion. No pneumothorax. Heart/Mediastinum: No cardiomegaly. Bones/joints: Unremarkable. IMPRESSION: No acute findings.
--- NOTE | 2025-01-20 17:51 | ED_ITS ---
<Statement entered by Kiki Bella DO - 01/20/25 23:56> I was consulted by the SARAH, and we discussed the complexity of the problems being addressed. I approved the treatment and management plan for this patient's care in the emergency department, thus performing a substantive portion of the medical decision making. Patient has no alarm findings or symptoms concerning for cauda equina syndrome or spinal cord compression. Work appears reassuring with the exception of very mildly elevated CK in the setting of normal kidney function. It is felt the patient is appropriate for discharge home with instructions for supportive care of likely musculoskeletal pain. He has spinal stenosis on CT but no acute fracture. Strict return precautions given Kiki Bella DO Discharge Plan Disposition Patient Disposition: Home, Self-Care Prescriptions Prescriptions: New prednisone 20 mg tablet 20 mg PO BID 7 Days Qty: 14 0RF No Action sertraline 100 mg tablet 100 mg PO DAILY Qty: 90 3RF (DME) [employer] Cindy 3 Plus Sensor Device See Rx Instructions .ROUTE .MEDSUPPLY Qty: 2 11RF Rx Instructions: As directed methocarbamol 1,000 mg tablet 1,000 mg PO TID Qty: 90 0RF Zepbound 2.5 mg/0.5 mL pen injector 2.5 mg SQ WEEKLY Qty: 2 0RF Rx Instructions: for 4 weeks furosemide [Lasix] 20 mg tablet 20 mg PO DAILY PRN (Reason: edema) Qty: 30 2RF tadalafil [Cialis] 5 mg tablet 5 mg PO DAILY Qty: 90 3RF valsartan 40 mg tablet 40 mg PO DAILY Qty: 90 3RF budesonide-formoterol [Symbicort] 160-4.5 mcg/actuation HFA aerosol inhaler 2 puff inhalation BID 90 Days Qty: 10.2 2RF albuterol sulfate [Ventolin HFA] 90 mcg/actuation HFA aerosol inhaler 2 inh inhalation Q6H PRN (Reason: shortness of breath or wheezing) 90 Days Qty: 18 3RF oxybutynin chloride 10 mg tablet extended release 24hr 10 mg PO DAILY Qty: 90 3RF tamsulosin [Flomax] 0.4 mg capsule 0.4 mg PO DAILY 90 Days Qty: 90 3RF omega-3 acid ethyl esters 1 gram capsule See Rx Instructions .ROUTE .COMPLEX Qty: 90 3RF Dose Instruction: TAKE 1 CAPSULE BY MOUTH ONCE DAILY Rx Instructions: TAKE 1 CAPSULE BY MOUTH ONCE DAILY atorvastatin 40 mg tablet See Rx Instructions .ROUTE .COMPLEX Qty: 90 3RF Dose Instruction: TAKE 1 TABLET BY MOUTH AT BEDTIME NIGHTLY Rx Instructions: TAKE 1 TABLET BY MOUTH AT BEDTIME NIGHTLY Eliquis 5 mg tablet 5 mg PO BID Qty: 180 1RF ferrous sulfate [FeroSul] 325 mg (65 mg iron) tablet See Rx Instructions .ROUTE .COMPLEX Qty: 180 2RF Dose Instruction: TAKE 1 TABLET BY MOUTH TWICE A DAY Rx Instructions: TAKE 1 TABLET BY MOUTH TWICE A DAY ezetimibe 10 mg tablet 10 mg PO DAILY hydrochlorothiazide 12.5 mg tablet 12.5 mg PO DAILY [facility] Clinical Ink 10 billion cell -200 mg capsule, sprinkle 1 cap PO DAILY Referrals Follow up/Referrals: Sunny Pimentel DO [Staff Physician, Orthopedics] - See instructions Melanie Gardner APRN [Primary Care Provider, Family Practice] - See instructions Activity Restrictions/Add. Instructions Additional Instructions/Restrictions: Follow-up with Dr. Pimentel as we discussed for your back pain. Also follow-up with Melanie. Clinical Impressions Clinical Impression: Degenerative joint disease (DJD) of lumbar spine, Spinal stenosis Instructions Patient Instructions: DI for Low Back Pain, DI for Spinal Stenosis Print Language Print Language: Zambian Discharge ED Provider: Kiki Bella General Adult HPI <Nilda Joseph (ED), NEPHROLOGIST - Last Filed: 01/20/25 21:13> General Chief complaint: Back Pain/Injury Stated complaint: back in knots,hip pain,nausea,sweating from pain Time Seen by Provider: 01/20/25 17:37 History of Present Illness HPI narrative: 44-year-old male presents to the ED today for complaint of low back pain that is constant that feels like a muscle spasm that is just holding on. Is a started 2 days ago. He says it makes him nauseous because the pain is so bad. He says moving around takes his mind off of it. He has no fever chills. He does have several health problems. He has history of pulmonary hypertension, lung nodules, sleep apnea, BPH, PEs, hypertension, anemia, reflux, edema, heart failure. Patient does have a [id number] amputation with a prosthesis. He says this does not feel like an injury from lifting something. He is unsure what this is. He has been working outside for the past week or so. He thinks he drinks enough fluid. Related Data Home Medications ?Medication ?Instructions ?Recorded ?Confirmed Lactobacil rhamnosus GG 10 billion 1 cap PO DAILY 04/1001/16/25 cell-inulin 200 mg sprinkle capsule ([facility] Clinical Ink) ezetimibe 10 mg tablet 10 mg PO DAILY 05/04/2401/07 hydrochlorothiazide 12.5 mg tablet 12.5 mg PO DAILY 01/16/25 Previous Rx's ?Medication ?Instructions ?Recorded valsartan 40 mg tablet 40 mg PO DAILY #90 tabs 06/09 08/02 albuterol sulfate 90 mcg/actuation 2 inh inhalation Q6 H PRN shortness 08/12/24 aerosol inhaler (Ventolin HFA) of breath or wheezing 9 0 days #18 grams oxybutynin chloride 10 mg 10 mg PO DAILY #90 tabs 09/08 tablet,extended release 24 hr tamsulosin 0.4 mg capsule (Flomax) 0.4 mg PO DAILY 90 days #90 caps 09/26/24 blood-glucose sensor ([employer] #2 ea 10/21/24 Cindy 3 Plus Sensor device) sertraline 100 mg tablet 100 mg PO DAILY #90 tabs atorvastatin 40 mg tablet See Rx Instructions .Route 0 11/14/24 .COMPLEX #90 ea omega-3 acid ethyl esters 1 gram See Rx Instructions . Route 11/14/24 capsule .COMPLEX #90 caps apixaban 5 mg tablet (Eliquis) 5 mg PO BID #180 tabs 0 11/25/24 methocarbamol 1,000 mg tablet 1,000 mg PO TID #90 tabs 12/05/24 budesonide-formoterol HFA 160 2 puff inhalation BID 90 days 12/09/24 mcg-4.5 mcg/actuation aerosol #10.2 grams inhaler (Symbicort) ferrous sulfate 325 mg (65 mg See Rx Instructions .Rou te 12/20/24 iron) tablet (FeroSul) .COMPLEX #180 tabs furosemide 20 mg tablet (Lasix) 20 mg PO DAILY PRN lotus ma #30 tabs 01/16/25 tadalafil 5 mg tablet (Cialis) 5 mg PO DAILY #90 tabs 01/16/25 tirzepatide (weight loss) 2.5 2.5 mg (0.5 mL) SQ WEEKL Y #2 mL 01/16/25 mg/0.5 mL subcutaneous pen injector (Zepbound) prednisone 20 mg tablet 20 mg PO BID 7 days #14 tabs 01/20/25 Allergies Allergy/AdvReac Type Severity Reaction Status Date / Time Latex, Natural Rubber Allergy Mild cooper skin Verified 01/16/25 08:43 lisinopril AdvReac Severe dizziness, Verified 01/16/25 08:43 lightheadedness [id number] Reductase AdvReac Intermediate elevated Verified 01/16/25 08:43 Inhibitor CK, rhabdo cephalexin (From Keflex) AdvReac Mild Vomiting Verified 01/16/25 08:43 PFS <Nilda Joseph (ED), NEPHROLOGIST - Last Filed: 01/20/25 21:13> [facility] Disclaimer: The information contained in this section may have been updated after the patient was seen, as this information can be updated by other users. Medical History Asthma Encounter for screening examination for sexually transmitted disease Lipid screening Establishing care with new doctor, encounter for Myalgia Rhabdomyolysis Respiratory infection Viral upper respiratory infection Lung nodule JOHN (obstructive sleep apnea) Dyspnea on exertion Pulmonary air trapping Multiple lung nodules on CT E-coli UTI Right lower lobe pneumonia History of pulmonary embolism Testicular disorder left Foot infection Surgical site infection Open wound of right heel Plantar fasciitis of right foot Callus of foot Acquired equinus deformity of both feet Acquired hallux valgus of both feet BMI 40.0-44.9, adult MRSA infection Constipation Neelima infection Acute osteomyelitis of right calcaneus Constipation Hypoxemia Postoperative seroma Pulmonary embolism Acute viral syndrome Phantom pain after amputation of lower extremity Lumbar radiculopathy Fever Itching due to drug Viral syndrome H1N1 influenza Fever History of COVID-19 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 Anemia GERD (gastroesophageal reflux disease) Psoriasis Adiel's deformity of right heel Exposure to 2019 novel coronavirus Migraine Acquired hammertoes of both feet Right Achilles tendinitis Heel spur Right Achilles bursitis Laceration of right index finger GI bleed Surgical History Status post below knee amputation of right lower extremity History of incision and drainage Multiple procedures on right calcaneous History of foot surgery Hx of surgical amputation of finger 7 surgeries to finger/partial amputation Previous back surgery Status post tendon repair left ankle Family History Other Hypertension Social History Smoking Status: Never smoker alcohol intake: current alcohol intake frequency: a few times a month substance use type: denies use current occupational status: retired and disabled Travel in the last 8 weeks?: Inside the [place] household members: spouse and children housing: house lives independently: No education level: high school caffeine: Yes special davin needs: No agree to transfusion: No do you feel safe at home: Yes victim of physical abuse: No victim of emotional abuse: No victim of sexual abuse: No would you like helpful sources: No Have you lived/traveled outside [place] in past 30 days?: No Contact w/someone who lives/traveled outside [place] past 30 days?: No Exposure to someone with infectious disease in past 14 days?: No Do you have a fever (greater than 100.4 F or 38 C)?: No Have you tested positive for COVID-19?: No Exposed to someone with COVID-19 in past 14 days?: No Do you have a sore throat?: No Do you have a cough?: No Do you have any weakness?: No Do you have any diarrhea?: No Are you experiencing any unusual bleeding?: No Do you have any muscle aches/pain?: No Do you have any abdominal pain?: No Are you experiencing loss of taste or smell?: No Other Medical History Have you received the Flu Vaccine for this season: No Have you received the Pneumonia Vaccine: No <Nilda Joseph (ED), NEPHROLOGIST - Last Filed: 01/20/25 21:13> ROS Obtained: Yes Systems reviewed as appropriate & no additional complaints except as documented Constitutional Constitutional: Reports as per HPI Physical Exam <Nilda Joseph (ED), NEPHROLOGIST - Last Filed: 01/20/25 21:13> General General appearance: alert and in no apparent distress Head Head exam: atraumatic and normocephalic Eye Eye exam: Present PERRL and EOMI ENT ENT exam: Present normal oropharynx and mucous membranes moist Neck Neck exam: Present full ROM and trachea midline Respiratory Respiratory exam: Present normal lung sounds bilaterally Cardiovascular Cardiovascular exam: Present regular rate, normal rhythm, normal heart sounds, +S1 and +S2 Abdominal Exam Abdominal exam: Present soft and normal bowel sounds Extremities Exam Extremities exam: Present normal inspection, normal capillary refill and other (right sided prosthesis) Back Exam Back exam: Present tenderness, muscle spasm and paraspinal tenderness Neurological Exam Neurological exam: Present alert and oriented X3 Skin Skin exam: Present warm, dry and intact Medical Decision Making <Nilda Joseph (ED), NEPHROLOGIST - Last Filed: 01/20/25 21:13> Medical Records Screening: Per USPSTF and CDC recommendations, given the prevalence of disease in our region, it is our hospital?s policy to screen for HIV and viral Hepatitis for all patients aged 18 and over and those with ongoing risk factors. Aries Inquiry Pt receiving controlled substance: No Aries was queried for this patient: No Vital Signs: 01/20/25 17:39 01/20/25 17:43 01/20/25 17:52 Temperature 98.2 F 98.2 F Temperature Source Oral Oral Pulse Rate 75 82 Pulse Rate [Right] 82 Respiratory Rate 15 15 Blood Pressure 124/81 124/81 Blood Pressure [Right Arm] 124/81 Blood Pressure Mean 97 Blood Pressure Mean [Right Arm] 95 Blood Pressure Source Automatic Cuff Blood Pressure Source [Right Arm] Automatic Cuff Blood Pressure Position Supine Blood Pressure Position [Right Arm] Supine 02 Sat by Pulse Oximetry 96 95 95 Oxygen Delivery Method Room Air Room Air 01/20/25 18:01 01/20/25 19:01 01/20/25 19:15 Temperature Temperature Source Pulse Rate 72 68 Pulse Rate [Right] Respiratory Rate Blood Pressure 110/75 137/91 H Blood Pressure [Right Arm] Blood Pressure Mean 86 106 Blood Pressure Mean [Right Arm] Blood Pressure Source Blood Pressure Source [Right Arm] Blood Pressure Position Blood Pressure Position [Right Arm] 02 Sat by Pulse Oximetry 94 L 96 Oxygen Delivery Method 01/20/25 19:30 01/20/25 19:45 01/20/25 20:00 Temperature Temperature Source Pulse Rate 65 Pulse Rate [Right] Respiratory Rate Blood Pressure 118/77 134/87 Blood Pressure [Right Arm] Blood Pressure Mean 90 102 Blood Pressure Mean [Right Arm] Blood Pressure Source Blood Pressure Source [Right Arm] Blood Pressure Position Blood Pressure Position [Right Arm] 02 Sat by Pulse Oximetry 98 Oxygen Delivery Method 01/20/25 20:01 01/20/25 20:31 01/20/25 20:34 Temperature 98.2 F Temperature Source Oral Pulse Rate 60 60 60 Pulse Rate [Right] Respiratory Rate 14 Blood Pressure 140/77 140/77 Blood Pressure [Right Arm] Blood Pressure Mean 98 Blood Pressure Mean [Right Arm] Blood Pressure Source Automatic Cuff Blood Pressure Source [Right Arm] Blood Pressure Position Sitting Blood Pressure Position [Right Arm] 02 Sat by Pulse Oximetry 98 97 Oxygen Delivery Method Room Air Lab Data Lab Results 01/20/25 18:03: Urine Color Yellow, Urine Appearance Clear, Urine pH 6.0, Ur Specific [place] 1.025, Urine Protein Negative, Urine Glucose (UA) Negative, Urine Ketones Negative, Urine Blood Negative, Urine Nitrate Negative, Urine Bilirubin Negative, Urine Urobilinogen 0.2, Ur Leukocyte Esterase Negative, Urine WBC 3-5, Ur Squamous Epith Cells Occasional, Urine Bacteria Trace 01/20/25 18:04: WBC 9.1, RBC 5.40, Hgb 14.7, Hct 45.3, MCV 83.9, MCH 27.2, MCHC 32.5, RDW 13.7, Plt Count 275, MPV 9.3, Neut % (Auto) 66.4, Lymph % (Auto) 22.0, [place] % (Auto) 8.0, Eos % (Auto) 3.0, Baso % (Auto) 0.4, Neut # (Auto) 6.1, Lymph # (Auto) 2.0, [place] # (Auto) 0.7, Eos # (Auto) 0.3, Baso # (Auto) 0.0, PT 11.4, INR 1.03, APTT 27.6, Sodium 139, Potassium 3.7, Chloride 102, Carbon Dioxide 28, Anion Gap 12.7, BUN 19, Creatinine 0.80, Estimated Creat Clear 122, Estimated GFR 105, Est GFR ( Amer) 127, Glucose 93, Calcium 8.5, Magnesium 2.0, Total Bilirubin 0.5, AST 52, ALT 51, Alkaline Phosphatase 90, Total Creatine Kinase 343 H, Troponin I < 0.01, NT-Pro-B Natriuret Pep 249 H, Total Protein 7.8, Albumin 4.3, Globulin 3.5 H, Albumin/Globulin Ratio 1.2, Lipase 30 01/20/25 18:04 01/20/25 18:04 Orders (Tests/Meds): ED MEDICATIONS Discontinued Medications Generic Name Dose Route Start Last Admin Trade Name Joseq PRN Reason Stop Dose Admin Sodium Chloride 1,000 mls @ 999 mls/hr 01/20/25 17:45 01/20/25 18:14 Sod Chlor 0.9% 1000ml Bag IV 01/20/25 18:45 999 mls/hr .Q1H1M ONE Administration Orphenadrine Citrate 60 mg 01/20/25 17:51 01/20/25 18:14 Orphenadrine Citrate 60mg/2ml Vial IV 01/20/25 17:52 60 mg ONCE ONE Administration ORDERS Category Date Time Status CT lumbar spine wo con Stat Cat Scan 01/20/25 19:05 Completed Chest XR -- portable [XR chest portable] Stat Exams 01/20/25 17:45 Completed BNP [NT Pro Brain Natriuretic Pep.] Stat Lab 01/20/25 18:04 Completed CBC [Complete Blood Count Auto Diff] Stat Lab 01/20/25 18:04 Completed Comprehensive Metabolic Panel Stat Lab 01/20/25 18:04 Completed Creatine Kinase Stat Lab 01/20/25 18:04 Completed Lipase Stat Lab 01/20/25 18:04 Completed Magnesium Stat Lab 01/20/25 18:04 Completed PT INR [Prothrombin Time INR] Stat Lab 01/20/25 18:04 Completed PTT [Activated Partial Thrombo Time] Stat Lab 01/20/25 18:04 Completed Trop I [Troponin I] Stat Lab 01/20/25 18:04 Completed Urinalysis and Microscopic Stat Lab 01/20/25 18:03 Completed Medical Decision Narrative: patient is a 44-year-old male presenting to the emergency department for evaluation of low back pain and spasms. Patient is hemodynamically stable and nontoxic-appearing upon arrival, afebrile. Differential diagnosis includes low back pain, muscle spasms, rhabdo, among others. Workup will be conducted with hematologic labs, specific imaging. Initial inventions include crystalloid bolus, analgesics. Initial workup reviewed by me hematologic labs are remarkable for nothing acute. Imaging informally interpreted by me and remarkable for spinal stenosis. Please see formal imaging for radiology report. Discussed with Dr. Bella patient's history and problems. Discussed concerns with patient's low back pain and muscle spasms. Will have patient follow-up with Dr. Pimentel for his spinal stenosis and narrowing. Will send him home with prednisone and he already has muscle relaxers from his primary care physician. He wants to use those. He will follow-up with his PCP and Dr. Pimentel. Patient is safe for discharge home. <Kiki N Shayne, DO - Last Filed: 01/20/25 18:44> Vital Signs: 01/20/25 17:39 01/20/25 17:43 01/20/25 17:52 Temperature 98.2 F 98.2 F Temperature Source Oral Oral Pulse Rate 75 82 Pulse Rate [Right] 82 Respiratory Rate 15 15 Blood Pressure 124/81 124/81 Blood Pressure [Right Arm] 124/81 Blood Pressure Mean 97 Blood Pressure Mean [Right Arm] 95 Blood Pressure Source Automatic Cuff Blood Pressure Source [Right Arm] Automatic Cuff Blood Pressure Position Supine Blood Pressure Position [Right Arm] Supine 02 Sat by Pulse Oximetry 96 95 95 Oxygen Delivery Method Room Air Room Air 01/20/25 18:01 01/20/25 19:01 01/20/25 19:15 Temperature Temperature Source Pulse Rate 72 68 Pulse Rate [Right] Respiratory Rate Blood Pressure 110/75 137/91 H Blood Pressure [Right Arm] Blood Pressure Mean 86 106 Blood Pressure Mean [Right Arm] Blood Pressure Source Blood Pressure Source [Right Arm] Blood Pressure Position Blood Pressure Position [Right Arm] 02 Sat by Pulse Oximetry 94 L 96 Oxygen Delivery Method 01/20/25 19:30 01/20/25 19:45 01/20/25 20:00 Temperature Temperature Source Pulse Rate 65 Pulse Rate [Right] Respiratory Rate Blood Pressure 118/77 134/87 Blood Pressure [Right Arm] Blood Pressure Mean 90 102 Blood Pressure Mean [Right Arm] Blood Pressure Source Blood Pressure Source [Right Arm] Blood Pressure Position Blood Pressure Position [Right Arm] 02 Sat by Pulse Oximetry 98 Oxygen Delivery Method 01/20/25 20:01 01/20/25 20:31 01/20/25 20:34 Temperature 98.2 F Temperature Source Oral Pulse Rate 60 60 60 Pulse Rate [Right] Respiratory Rate 14 Blood Pressure 140/77 140/77 Blood Pressure [Right Arm] Blood Pressure Mean 98 Blood Pressure Mean [Right Arm] Blood Pressure Source Automatic Cuff Blood Pressure Source [Right Arm] Blood Pressure Position Sitting Blood Pressure Position [Right Arm] 02 Sat by Pulse Oximetry 98 97 Oxygen Delivery Method Room Air Lab Data Lab Results 01/20/25 18:03: Urine Color Yellow, Urine Appearance Clear, Urine pH 6.0, Ur Specific [place] 1.025, Urine Protein Negative, Urine Glucose (UA) Negative, Urine Ketones Negative, Urine Blood Negative, Urine Nitrate Negative, Urine Bilirubin Negative, Urine Urobilinogen 0.2, Ur Leukocyte Esterase Negative, Urine WBC 3-5, Ur Squamous Epith Cells Occasional, Urine Bacteria Trace 01/20/25 18:04: WBC 9.1, RBC 5.40, Hgb 14.7, Hct 45.3, MCV 83.9, MCH 27.2, MCHC 32.5, RDW 13.7, Plt Count 275, MPV 9.3, Neut % (Auto) 66.4, Lymph % (Auto) 22.0, [place] % (Auto) 8.0, Eos % (Auto) 3.0, Baso % (Auto) 0.4, Neut # (Auto) 6.1, Lymph # (Auto) 2.0, [place] # (Auto) 0.7, Eos # (Auto) 0.3, Baso # (Auto) 0.0, PT 11.4, INR 1.03, APTT 27.6, Sodium 139, Potassium 3.7, Chloride 102, Carbon Dioxide 28, Anion Gap 12.7, BUN 19, Creatinine 0.80, Estimated Creat Clear 122, Estimated GFR 105, Est GFR ( Amer) 127, Glucose 93, Calcium 8.5, Magnesium 2.0, Total Bilirubin 0.5, AST 52, ALT 51, Alkaline Phosphatase 90, Total Creatine Kinase 343 H, Troponin I < 0.01, NT-Pro-B Natriuret Pep 249 H, Total Protein 7.8, Albumin 4.3, Globulin 3.5 H, Albumin/Globulin Ratio 1.2, Lipase 30 Orders (Tests/Meds): ED MEDICATIONS Discontinued Medications Generic Name Dose Route Start Last Admin Trade Name Freq PRN Reason Stop Dose Admin Sodium Chloride 1,000 mls @ 999 mls/hr 01/20/25 17:45 01/20/25 18:14 Sod Chlor 0.9% 1000ml Bag IV 01/20/25 18:45 999 mls/hr .Q1H1M ONE Administration Orphenadrine Citrate 60 mg 01/20/25 17:51 01/20/25 18:14 Orphenadrine Citrate 60mg/2ml Vial IV 01/20/25 17:52 60 mg ONCE ONE Administration ORDERS Category Date Time Status CT lumbar spine wo con Stat Cat Scan 01/20/25 19:05 Completed Chest XR -- portable [XR chest portable] Stat Exams 01/20/25 17:45 Completed BNP [NT Pro Brain Natriuretic Pep.] Stat Lab 01/20/25 18:04 Completed CBC [Complete Blood Count Auto Diff] Stat Lab 01/20/25 18:04 Completed Comprehensive Metabolic Panel Stat Lab 01/20/25 18:04 Completed Creatine Kinase Stat Lab 01/20/25 18:04 Completed Lipase Stat Lab 01/20/25 18:04 Completed Magnesium Stat Lab 01/20/25 18:04 Completed PT INR [Prothrombin Time INR] Stat Lab 01/20/25 18:04 Completed PTT [Activated Partial Thrombo Time] Stat Lab 01/20/25 18:04 Completed Trop I [Troponin I] Stat Lab 01/20/25 18:04 Completed Urinalysis and Microscopic Stat Lab 01/20/25 18:03 Completed ECG Data Tracing #1: I reviewed this ECG and interpreted as documented below: Normal sinus rhythm with ventricular rate of [address] changes concerning for STEMI. Normal intervals ECG initial impression date: 01/20/25 ECG initial impression time: 17:56 Critical Care <Nilda Joseph (ED), NEPHROLOGIST - Last Filed: 01/20/25 21:13> Critical Care Time Critical Care Time: No
--- NOTE | 2025-01-20 17:55 | ECG_ITS ---
APPROVED REPORT Exam: Resting ECG HR:74 bpm ECG Measurements Heart Rate 74 AXES TN 152 P 53 QRSd 99 QRS 44 QT 400 T 29 QTc 427 Conclusion SINUS RHYTHM NORMAL ECG No STEMI Electronically signed by : CONRAD CARERRA, 01/21/2025 00:09:23
[2025-01-20] MEDS: 0.9 % SODIUM CHLORIDE 1000ML 1,000 ML 999 ML IV (18:14)
[2025-01-20] MEDS: ORPHENADRINE CITRATE 60MG/2ML VIAL 60 MG IV (18:14)
[2025-01-20 18:15] LABS: Microscopic, Urine URINE MICROSCOPIC (MICROSCOPIC)
[2025-01-20 18:16] LABS: Bilirubin,Urine Negative (Negative); Color,Urine YELLOW (Yellow); Glucose,Urine (UA) Negative (Negative); Ketones,Urine Negative (Negative); Leukocyte Esterase,Urine Negative (Negative); PH,Urine 6.0 (5.0-8.5); Protein,Urine Negative (Negative); Specific Gravity, Urine 1.025 (1.005-1.030); Urobilinogen,Urine 0.2 EU/dl (0.2)
[2025-01-20 18:17] LABS: Hematocrit 45.3 % (42.0-52.0); Hemoglobin 14.7 g/dL (14.1-18.0); Immature Granulocytes % 0.2 %; Mean Corpuscular HGB Conc 32.5 g/dL (31.8-35.4); Mean Corpuscular Hemoglobin 27.2 pg (27.0-31.2); Mean Corpuscular Volume 83.9 fl (80-94); Nucleated Red Blood Cells % 0 %; Platelet Count 275 K/mm3 (142-424); Red Blood Count 5.40 M/mm3 (4.60-6.20); Red Cell Distribution Width-SD 42.0 fL; White Blood Count 9.1 K/mm3 (4.8-10.8)
[2025-01-20 18:27] LABS: Albumin Level 4.3 g/dl (3.5-5.0); Chloride 102 mmol/L (98-107); Potassium 3.7 mmoL/L (3.5-5.1); Sodium 139 mmol/L (136-145)
[2025-01-20 18:29] LABS: Activated Partial Thrombo Time 27.6 seconds (22.8-30.6); Alanine Aminotransferase 51 U/L (12-78); Aspartate Amino Transferase 52 U/L (17-59); Blood Urea Nitrogen 19 mg/dl (9-20); Creatinine Clearance Estimated 122 mL/min (50-200); Creatinine,Serum 0.80 mg/dl (0.66-1.25); Estimated Glomerular Filt Rate 105 ml/min (>60); GFR (African American) 127 ML/MIN (>60); INR 1.03 (0.9-1.1); Prothrombin Time 11.4 seconds (10.1-12.5)
[2025-01-20 18:30] LABS: Albumin/Globulin Ratio 1.2 (1.1-1.8); Alkaline Phosphatase 90 U/L (38-126); Anion Gap 12.7 mEq/L (5-15); Bilirubin,Total 0.5 mg/dl (0.2-1.3); Calcium 8.5 mg/dl (8.4-10.2); Carbon Dioxide 28 mmol/L (22.0-30.0); Creatine Kinase 343 U/L (55-170); Globulin 3.5 g/dL (1.3-3.2); Glucose 93 mg/dl (74-100); Lipase 30 U/L (23-300); Magnesium 2.0 mg/dl (1.6-2.3); Total Protein,Serum 7.8 g/dl (6.3-8.2)
[2025-01-20 18:39] LABS: NT Pro Brain Natriuretic Pep. 249 pg/mL (0-125)
[2025-01-20 18:40] LABS: Bacteria,Urine Trace /lpf; Squamous Epithelial Cell,Urine Occasional #/hpf (0-5)
[2025-01-20 18:56] LABS: Troponin I < 0.01 ng/ml (0.00-0.034)
--- NOTE | 2025-01-20 19:05 | CT_ITS ---
PROCEDURE INFORMATION: Exam: CT Lumbar Spine Without Contrast Exam date and time: 01/20/2025 7:24 PM Age: 44 years old Clinical indication: Low back pain; Prior surgery; Surgery date: 6+ months; Surgery type: Back surgery in 2001, stated they shaved a disc TECHNIQUE: Imaging protocol: Computed tomography of the lumbar spine without contrast. Radiation optimization: All CT scans at this facility use at least one of these dose optimization techniques: automated exposure control; mA and/or kV adjustment per patient size (includes targeted exams where dose is matched to clinical indication); or iterative reconstruction. COMPARISON: MR LUMBAR SPINE WO CON 12/16/2022 11:04 AM FINDINGS: Bones/joints: Lumbar vertebrae normal in height. No acute fracture. 8 mm retrolisthesis L5 on S1. Multilevel facet arthropathy and marginal osteophytosis. Severe L4-L5 intervertebral disc space narrowing. L4-L5 severe left and moderate right neural foraminal narrowing. Severe bilateral L5-S1 neural foraminal narrowing. Moderate L4-L5 and mild L5-S1 spinal canal stenosis. Soft tissues: Unremarkable. IMPRESSION: 1. No acute osseous findings. 2. Multilevel lumbar spondylosis with notable moderate L4-L5 spinal canal stenosis and severe left L4-L5 and bilateral L5-S1 neural foraminal narrowing.
== END 2025-01-20 20:37 | disposition home or self-care (01) ==
PROVIDERS: Nurse Practitioner; Emergency Provider Emergency Medicine; PCP Nurse Practitioner Family
DX: M47.816 Spondylosis without myelopathy or radiculopathy, lumbar region (principal); M48.07 Spinal stenosis, lumbosacral region
CPT/HCPCS: 71045; 72131; 80053; 81001; 82550; 83690; 83735; 83880; 84484; 85025; 85610; 85730; 93005; 96361; 96374; 99285; J2360; J7030

== ENCOUNTER 2025-04-03 20:56 | Emergency (ER) | payer MEDICAID, SELFPAY ==
--- OUTSIDE RECORDS SUMMARY | 2023-10-25 12:15 | XMS_ITS ---
Author Organization [facility] Address [address] [place] [address] YVON Sykes [phone] Care Team Providers Care Procedure Manager Name Role Phone Zeeshan Salazar Primary Care Provider Macario Burkett [phone] Allergies No Known Allergies REASON FOR VISIT check up BP Encounters Encounter Location Date Provider Diagnosis [facility] [address] [place] [address] YVON Sykes [id number] 10/25/2023 Macario Burkett Plan Of Treatment No Information Progress Notes * MITCHELLWonDOB: [birth year] (44 yo M)Acc No.[id number]:10/25/2023 Progress Notes Patient: Won SPANN Provider: Colleen Burkett M.D. :1980 A ge:43 Y S ex:Male Date:10/25/2023 Address:[address] [place] [address] Onel THACKER [id number] Pcp:Zeeshan Salazar Subjective: * Chief Complaints: * [...] alive, hypertension. M aternal Grand Mother: HBP, [place]. Brother with HBP. * Social History: C URRENT TOBACCO USE S moking Status: Patient does NOT smoke. C affeine: no. Alcohol: No. * Allergies: N .K.D.A. Objective: * Vitals: Assessment: Plan: * Treatment: * Images: Billing Information: * Visit Code: * Procedure Codes: * Electronic signature of Micaela Burkett MD on 04/03/2025 at 09:53 PM EDT Sign off status: Pending * Provider: Colleen Burkett M.D. Date: 0 10/25/2023 Generated for Nany jorgensen/Elaine/Lisbethitting on: 0 04/03/2025 09:53 PM EDT
--- OUTSIDE RECORDS SUMMARY | 2023-12-12 05:00 | XMS_ITS ---
Author Organization Ayaka Address 1210 [facility] 36 [facility] 2C [place] [phone] Care Team Providers Care Accounts Payable Technician Name Role Phone Zeeshan Salazar Primary Care Provider [phone] Macario Burkett [phone] REASON FOR VISIT 6 Month Check Up Encounters Encounter Location Date Provider Diagnosis [place] 1210 [facility] [address] [place] [phone] 12/12/2023 Macario Burkett Plan Of Treatment No Information Progress Notes * Won MEDRANO ZeeshanDOB: [birth year] (44 yo M)Acc No.[id number]:12/12/2023 Progress Notes Patient: Won SPANN Provider: Colleen Burkett M.D. :1980 A ge:43 Y S ex:Male Date:12/12/2023 Address:[address] [place] [address] [id number] Pcp:Zeeshan Salazar Subjective: * Chief Complaints: * 1 . 6 Month Check Up. * Medical History: Objective: * Vitals: Assessment: Plan: * Treatment: * Images: Billing Information: * Visit Code: * Procedure Codes: * Electronic signature of Micaela Burkett MD on 04/03/2025 at 09:53 PM EDT Sign off status: Pending * Provider: Colleen Burkett M.D. Date: 12/12/2023 Generated for Nany jorgensen/Elaine/Pro on: 0 04/03/2025 09:53 PM EDT
--- OUTSIDE RECORDS SUMMARY | 2025-04-03 21:53 | XMS_ITS | Data Portability ---
Author Organization [place] - [facility] [place] [facility] ADMIN Address [address] [place] [id number] Care Team Providers Care Funeral Director And Embalmer Name Role Phone GUILLE KNOWLES Primary Care Provider [phone] Assessment No assessment recorded. Plan of Treatment Reminders Order Date Submit Date Provider Last Modified By Organization Details Last Modified Time Details Appointments None recorded. Lab C-reactive protein, quantitativ e, serum or plasma [address] [facility], [address] [place], [address], 4 17:36:31 ESR (erythrocyt e sedimentati on rate), blood 2023 024 [place] [id number] [facility], [address] [facility], [place], [address], 4 17:36:31 C-reactive protein, quantitativ e, serum or plasma 2023 024 [facility], [address], [address], [place], [address], 4 08:08:32 ESR (erythrocyt e sedimentati on rate), blood 2023 024 [facility], [address], [address], [place], [address], 4 08:08:32 CBC w/ auto diff 2023 024 [facility], [address] [place], [address], 4 16:12:13 CMP, serum or plasma 2023 024 [facility], [address] [place], [address], 4 16:42:07 CBC w/ auto diff 2023 024 [facility], [address] [place], [address], 4 15:22:25 CMP, serum or plasma 2023 024 [facility], [address] [place], [address], 4 16:32:05 prothrombin (factor II) [id number] mutation, blood 2023 024 [email or web address] 6 [facility], [address] [place], [address], 4 08:55:21 factor VIII activity, plasma 2023 024 [email or web address] 6 [facility], [address] [place], [address], 4 08:26:01 protein C + protein S, functional panel, plasma 2023 024 ravin 6 [facility], [address] [place], [address], 4 08:26:02 Referral None recorded. Procedures None recorded. Surgeries None recorded. Imaging None recorded. Medication Orders doxycycline hyclate [address] [facility], [address] [facility], [address], [place], [address], 09:18:27 Patient TargetsNo targets recorded. Patient InstructionsNo instructions recorded. Reason for Referral None Reported. Results Created Date Observation Date Name Description Value Unit Range Abnormal Flag Note LastModifiedBy Organization Detail LastModifiedTime 07/06/20 23 07/07/2023 COMP. METAB OLIC PANEL (14) glucose 92 mg/dL 70-99 Not Available [facility] ([facility]) [address] [place], [address], 07/07/2023 13:08:40 07/06/20 23 07/07/2023 COMP. METAB OLIC PANEL (14) BUN 18 mg/dL 6-24 Not Available [facility] ([facility]) [address] [place], [address], 07/07/2023 13:08:40 07/06/20 23 07/07/2023 COMP. METAB OLIC PANEL (14) creatinine 0.85 mg/dL 0.76-1 .27 Not Available [facility] ([facility]) [address] [place], [address], 07/07/2023 13:08:40 07/06/20 23 07/07/2023 COMP. METAB OLIC PANEL (14) eGFR 111 mL/mi n/1.7 3 >59 Not Available [facility] ([facility]) [address] [place], [address], 07/07/2023 13:08:40 07/06/20 23 07/07/2023 COMP. METAB OLIC PANEL (14) BUN/creatini ne ratio 21 9-20 above high normal Not Available [facility] ([facility]) [address] [place], [address], 07/07/2023 13:08:40 07/06/20 23 07/07/2023 COMP. METAB OLIC PANEL (14) sodium 140 mmol/ L 134-14 4 Not Available [facility] ([facility]) [address] [facility] [place], [address], 07/07/2023 13:08:40 07/06/20 23 07/07/2023 COMP. METAB OLIC PANEL (14) potassium 4.1 mmol/ L 3.5-5. 2 Not Available [facility] ([facility]) [address] [facility] [place], [address], 07/07/2023 13:08:40 07/06/20 23 07/07/2023 COMP. METAB OLIC PANEL (14) chloride 105 mmol/ L 96-106 Not Available [facility] ([facility]) [address] [facility] [place], [address], 07/07/2023 13:08:40 07/06/20 23 07/07/2023 COMP. METAB OLIC PANEL (14) carbon dioxide, total 22 mmol/ L Not Available [facility] ([facility]) [address] [facility] [place], [address], 07/07/2023 13:08:40 07/06/20 23 07/07/2023 COMP. METAB OLIC PANEL (14) calcium 8.9 mg/dL 8.7-10 .2 Not Available [facility] ([facility]) [address] [facility] [place], [address], 07/07/2023 13:08:40 07/06/20 23 07/07/2023 COMP. METAB OLIC PANEL (14) protein, total 7.3 g/dL 6.0-8. 5 Not Available [facility] ([facility]) [address] [facility] [place], [address], 07/07/2023 13:08:40 07/06/20 23 07/07/2023 COMP. METAB OLIC PANEL (14) albumin 4.3 g/dL 4.1-5. 1 Not Available [facility] ([facility]) [address] [facility] [place], [address], 07/07/2023 13:08:40 07/06/20 23 07/07/2023 COMP. METAB OLIC PANEL (14) globulin, total 3.0 g/dL 1.5-4. 5 Not Available [facility] ([facility]) [address] [facility], [place], [address], 07/07/2023 13:08:40 07/06/20 23 07/07/2023 COMP. METAB OLIC PANEL (14) A/G ratio 1.4 1.2-2. 2 Not Available [facility] ([facility]) [address] [facility], [place], [address], 07/07/2023 13:08:40 07/06/20 23 07/07/2023 COMP. METAB OLIC PANEL (14) bilirubin, total 0.3 mg/dL 0.0-1. 2 Not Available [facility] ([facility]) [address] [facility], [place], [address], 07/07/2023 13:08:40 07/06/20 23 07/07/2023 COMP. METAB OLIC PANEL (14) alkaline phosphatase 85 IU/L 44-121 Not Available [facility] ([facility]) [address] [facility], [place], [address], 07/07/2023 13:08:40 07/06/20 23 07/07/2023 COMP. METAB OLIC PANEL (14) AST (SGOT) 24 IU/L 0-40 Not Available [facility] ([facility]) [address] [facility], [place], [address], 07/07/2023 13:08:40 07/06/20 23 07/07/2023 COMP. METAB OLIC PANEL (14) ALT (SGPT) 25 IU/L 0-44 Not Available [facility] ([facility]) [address] [facility], [place], [address], 07/07/2023 13:08:40 07/06/20 23 07/07/2023 SEDIM ENTAT ION RATE- WESTE RGREN sedimentatio n rate-westerg los 28 mm/HR 0-15 above high normal Not Available [facility] ([facility]) [address] [facility], [place], [address], 07/07/2023 13:08:42 07/06/20 23 07/07/2023 C-CHANA CTIVE PROTE IN, QUANT C-reactive protein, quant 11 mg/L 0-10 above high normal Not Available [facility] ([facility]) [address] [facility], [place], [address], 07/07/2023 13:08:43 07/25/19 24 07/25/2023 CBC AUTO W DIFF WBC 6.7 K/uL 4.0-10 .5 Not Available [facility] ([facility]) [address] [facility], [place], [address], 07/25/2023 15:22:25 07/25/19 24 07/25/2023 CBC AUTO W DIFF RBC 5.7 M/mm3 4.7-6. 1 Not Available [facility] ([facility]) [address] [facility], [place], [address], 07/25/2023 15:22:25 07/25/19 24 07/25/2023 CBC AUTO W DIFF HGB 14.8 gm/dL 13.5-1 8.0 Not Available [facility] ([facility]) [address] [facility], [place], [address], 07/25/2023 15:22:25 07/25/19 24 07/25/2023 CBC AUTO W DIFF HCT 45.4 % 42.0-5 2.0 Not Available [facility] ([facility]) [address] [facility], [place], [address], 07/25/2023 15:22:25 07/25/19 24 07/25/2023 CBC AUTO W DIFF MCV 79.6 fL 78-100 Not Available [facility] ([facility]) [address], [place], [address], 07/25/2023 15:22:25 07/25/19 24 07/25/2023 CBC AUTO W DIFF MCH 26.0 pg 27-31 low Not Available [facility] ([facility]) [address] , [place], [address], 07/25/2023 15:22:25 07/25/19 24 07/25/2023 CBC AUTO W DIFF MCHC 32.6 g/dL 32-36 Not Available [facility] ([facility]) [address] , [place], [address], 07/25/2023 15:22:25 07/25/19 24 07/25/2023 CBC AUTO W DIFF RDW 13.7 % 11.5-1 4.0 Not Available [facility] ([facility]) [address] , [place], [address], 07/25/2023 15:22:25 07/25/19 24 07/25/2023 CBC AUTO W DIFF platelet count 279 K/uL 150-45 0 Not Available [facility] ([facility]) [address] , [place], [address], 07/25/2023 15:22:25 07/25/19 24 07/25/2023 CBC AUTO W DIFF MPV 10.0 fL 6-9.5 high Not Available [facility] ([facility]) [address] , [place], [address], 07/25/2023 15:22:25 07/25/19 24 07/25/2023 CBC AUTO W DIFF neutrophil% 61.2 % 43-65 Not Available [facility] ([facility]) [address] , [place], [address], 07/25/2023 15:22:25 07/25/19 24 07/25/2023 CBC AUTO W DIFF lymphocyte% 25.7 % 20.5-4 5.5 Not Available [facility] ([facility]) [address], [place], [address], 07/25/2023 15:22:25 07/25/19 24 07/25/2023 CBC AUTO W DIFF monocyte% 9.2 % 5.5-11 .7 Not Available [facility] ([facility]) [address], [place], [address], 07/25/2023 15:22:25 07/25/19 24 07/25/2023 CBC AUTO W DIFF eosinophil% 3.0 % 0.9-2. 9 high Not Available [facility] ([facility]) [address] [facility], [place], [address], 07/25/2023 15:22:25 07/25/19 24 07/25/2023 CBC AUTO W DIFF basophil% 0.6 % 0.2-1. 0 Not Available [facility] ([facility]) [address] [place], [address], 07/25/2023 15:22:25 07/25/19 24 07/25/2023 CBC AUTO W DIFF immature granulocytes % 0.3 % 0.0-0. 8 Not Available [facility] ([facility]) [address] [place], [address], 07/25/2023 15:22:25 07/25/19 24 07/25/2023 CBC AUTO W DIFF nucleated red blood cells % 0.0 % Not Available [facility] ([facility]) [address] [place], [address], 07/25/2023 15:22:25 07/25/19 24 07/25/2023 CBC AUTO W DIFF neutrophil# 4.1 K/uL 2.2-4. 8 Not Available [facility] ([facility]) [address], [place], [address], 07/25/2023 15:22:25 07/25/19 24 07/25/2023 CBC AUTO W DIFF lymphocyte# 1.7 cell/ mcL 1.3-2. 9 Not Available [facility] ([facility]) [address] [facility], [place], [address], 07/25/2023 15:22:25 07/25/19 24 07/25/2023 CBC AUTO W DIFF monocyte# 0.6 cell/ mcL 0.3-0. 8 Not Available [facility] ([facility]) [address] [facility], [place], [address], 07/25/2023 15:22:25 07/25/19 24 07/25/2023 CBC AUTO W DIFF eosinophil# 0.2 cell/ mcL 0-0.2 Not Available [facility] ([facility]) [address] [facility], [place], [address], 07/25/2023 15:22:25 07/25/19 24 07/25/2023 CBC AUTO W DIFF basophil# 0.0 cell/ mcL 0.0-1. 0 Not Available [facility] ([facility]) [address] [facility], [place], [address], 07/25/2023 15:22:25 07/25/19 24 07/25/2023 CBC AUTO W DIFF immature gramulocytes # 0.02 K/uL Not Available [facility] ([facility]) [address] [facility], [place], [address], 07/25/2023 15:22:25 07/25/19 24 07/25/2023 CBC AUTO W DIFF nucleated red blood cells # 0.00 K/uL Not Available [facility] ([facility]) [address] [facility], [place], [address], 07/25/2023 15:22:25 07/25/19 24 07/25/2023 CBC AUTO W DIFF manual differential NO Not Available [facility] ([facility]) [address], [place], [address], 07/25/2023 15:22:25 07/25/19 24 07/25/2023 PT (PROT HROMB IN TIME) W INR prothrombin time 11.0 secon ds 9.3-11 .4 Not Available [facility] ([facility]) [address], [place], [address], 07/25/2023 16:27:47 07/25/19 24 07/25/2023 PT (PROT [...] Mecha nical Heart Valve s Not Available [facility] ([facility]) [address] , [place], [address], 07/25/2023 16:27:47 07/25/19 24 07/25/2023 COMP METAB OLIC PANEL sodium 142 mmol/ L 136-14 5 Not Available [facility] ([facility]) [address], [place], [address], 07/25/2023 16:32:05 07/25/19 24 07/25/2023 COMP METAB OLIC PANEL potassium 3.7 mmol/ L 3.6-5. 0 Not Available [facility] ([facility]) [address], [place], [address], 07/25/2023 16:32:05 07/25/19 24 07/25/2023 COMP METAB OLIC PANEL chloride 104 mmol/ L 98-107 Not Available [facility] ([facility]) [address], [place], [address], 07/25/2023 16:32:05 07/25/19 24 07/25/2023 COMP METAB OLIC PANEL carbon dioxide 29.1 mmol/ L 21.0-3 2.0 Not Available [facility] ([facility]) [address], [place], [address], 07/25/2023 16:32:05 07/25/19 24 07/25/2023 COMP METAB OLIC PANEL anion gap 12.6 Not Available [facility] ([facility]) [address] , [place], [address], 07/25/2023 16:32:05 07/25/19 24 07/25/2023 COMP METAB OLIC PANEL glucose 85 mg/dL 70-120 Not Available [facility] ([facility]) [address] , [place], [address], 07/25/2023 16:32:05 07/25/19 24 07/25/2023 COMP METAB OLIC PANEL BUN 16 mg/dL 7-18 Not Available [facility] ([facility]) [address] , [place], [address], 07/25/2023 16:32:05 07/25/19 24 07/25/2023 COMP METAB OLIC PANEL creatinine 0.8 mg/dL 0.6-1. 3 Not Available [facility] ([facility]) [address] , [place], [address], 07/25/2023 16:32:05 07/25/19 24 07/25/2023 COMP METAB OLIC PANEL glomerular filtration rate >60 mlper min 60- Not Available [facility] ([facility]) [address] , [place], [address], 07/25/2023 16:32:05 07/25/19 24 07/25/2023 COMP METAB OLIC PANEL total protein 7.6 g/dL 6.4-8. 2 Not Available [facility] ([facility]) [address], [place], [address], 07/25/2023 16:32:05 07/25/19 24 07/25/2023 COMP METAB OLIC PANEL albumin 3.5 g/dL 3.4-5. 0 Not Available [facility] ([facility]) [address], [place], [address], 07/25/2023 16:32:05 07/25/19 24 07/25/2023 COMP METAB OLIC PANEL globulin 4.1 Not Available [facility] ([facility]) [address], [place], [address], 07/25/2023 16:32:05 07/25/19 24 07/25/2023 COMP METAB OLIC PANEL alb/glob ratio 0.9 0.7-2 Not Available [facility] ([facility]) [address], [place], [address], 07/25/2023 16:32:05 07/25/19 24 07/25/2023 COMP METAB OLIC PANEL calcium 8.8 mg/dL 8.5-10 .5 Not Available [facility] ([facility]) [address], [place], [address], 07/25/2023 16:32:05 07/25/19 24 07/25/2023 COMP METAB OLIC PANEL bilirubin total 0.40 mg/dL 0.10-1 .00 Not Available [facility] ([facility]) [address] , [place], [address], 07/25/2023 16:32:05 07/25/19 24 07/25/2023 COMP METAB OLIC PANEL AST (SGOT) 24 U/L 0-37 Not Available [facility] ([facility]) [address] , [place], [address], 07/25/2023 16:32:05 07/25/19 24 07/25/2023 COMP METAB OLIC PANEL ALT (SGPT) 27 U/L 0-65 Not Available [facility] ([facility]) [address], [place], [address], 07/25/2023 16:32:05 07/25/19 24 07/25/2023 COMP METAB OLIC PANEL alk phosphatase 74 U/L 46-116 Not Available [facility] ([facility]) [address] [facility], [place], [address], 07/25/2023 16:32:05 07/25/19 24 07/27/2023 FACTO R VIII (8) ACTIV ITY factor VIII (8) activity 159 % 56-140 high Perfo rmed at: - [facility] [place] [address] [place] [address] Lab Direc tor: Linda ho MD, Phone : [phone] Not Available [facility] ([facility]) [address] [facility], [place], [address], 07/27/2023 06:19:41 07/25/19 24 07/27/2023 PROTE IN C FUNTI ONAL protein C functional 102 % 73-180 Perfo rmed at: - [facility] [place] [address] [place] [address] Lab Direc tor: Linda ho MD, Phone : [phone] Not Available [facility] ([facility]) [address] [facility], [place], [address], 07/27/2023 06:19:42 07/25/19 24 07/27/2023 PROTE IN [...] at: BN - [facility] [place] [address] , [place] [address] Lab Direc tor: Linda ho MD, Phone : [phone] Not Available [facility] ([facility]) [address], [place], [address], 07/27/2023 06:19:43 07/25/19 24 08/03/2023 FACTO R [...] Facto r V Tayler n (PMID : 04904 767). Ad ditio nal risk facto rs [...] ders to discu ss resul ts at [phone] (9912 ). . Test Detai ls: Varia nt holly zed: c.*97 G>A, previ ously refer red to as G2021 0 A . Metho ds/Li mitat ions: DNA holly sis of the F2 gene (NM_[id number]) was perfo rmed by P CR [...] e lindy cteri stics deter mined by [employer]. It has not been clear ed or appro raquel by the Food and Drug Admin istra tion. . Refer ences : Fernanda Macias, Russ FULTON, Sammy evans R, Radha KING, Lucas in JH; [facility] Pro fessi onal Pract ice and Guide lines Commi ttee. Adden dum: Rubio Lara g e of Medic al Briseyda ics conse nsus state ment on facto r V Leide n muta tion testi ng. Briseyda Med. 2020Sep 11. doi: 10.10 38/s4 1436- 021-0 110 8-x. PMID: 17217 767. . Randi smith JL. Proth rombi n Throm bophi za. 2005Jan 31 Updat ed 2020Aug 13 . In: Ricki MP, Bhaskar contreras HH, Mary RA, et al., ernestoito rs. GeneR ashley s(R) Inter net . Shyam gipson ([place]): Unive rsity of [facility]; 1992- 2020. Avail able from: [...] [phone] . Epub 2017Apr 13. PMID: 03710 698. Not Available [facility] ([facility]) [address], [place], [address], 08/03/2023 13:12:27 07/25/19 24 08/03/2023 FACTO R II, DNA HOLLY SIS reviewed by: Tacho camp, PhD Direc tor, Molec ular Briseyda ics Perfo rmed at: TG - [facility] [place] [address] [facility] , [place] [address] Lab Dire tor: Yaneth Sullivan [facility] , Phone : [phone] Not Available [facility] ([facility]) [address], [place], [address], 08/03/2023 13:12:27 10/24/19 24 10/24/2023 CBC AUTO W DIFF WBC 6.9 K/uL 4.0-10 .5 Not Available [facility] ([facility]) [address], [place], [address], 10/24/2023 16:12:13 10/24/19 24 10/24/2023 CBC AUTO W DIFF RBC 5.7 M/mm3 4.7-6. 1 Not Available [facility] ([facility]) [address] , [place], [address], 10/24/2023 16:12:13 10/24/19 24 10/24/2023 CBC AUTO W DIFF HGB 14.7 gm/dL 13.5-1 8.0 Not Available [facility] ([facility]) [address] , [place], [address], 10/24/2023 16:12:13 10/24/19 24 10/24/2023 CBC AUTO W DIFF HCT 46.0 % 42.0-5 2.0 Not Available [facility] ([facility]) [address] , [place], [address], 10/24/2023 16:12:13 10/24/19 24 10/24/2023 CBC AUTO W DIFF MCV 80.4 fL 78-100 Not Available [facility] ([facility]) [address] , [place], [address], 10/24/2023 16:12:13 10/24/19 24 10/24/2023 CBC AUTO W DIFF MCH 25.7 pg 27-31 low Not Available [facility] ([facility]) [address], [place], [address], 10/24/2023 16:12:13 10/24/19 24 10/24/2023 CBC AUTO W DIFF MCHC 32.0 g/dL 32-36 Not Available [facility] ([facility]) [address], [place], [address], 10/24/2023 16:12:13 10/24/19 24 10/24/2023 CBC AUTO W DIFF RDW 14.3 % 11.5-1 4.0 high Not Available [facility] ([facility]) [address] , [place], [address], 10/24/2023 16:12:13 10/24/19 24 10/24/2023 CBC AUTO W DIFF platelet count 258 K/uL 150-45 0 Not Available [facility] ([facility]) [address] , [place], [address], 10/24/2023 16:12:13 10/24/19 24 10/24/2023 CBC AUTO W DIFF MPV 9.6 fL 6-9.5 high Not Available [facility] ([facility]) [address] , [place], [address], 10/24/2023 16:12:13 10/24/19 24 10/24/2023 CBC AUTO W DIFF neutrophil% 70.1 % 43-65 high Not Available [facility] ([facility]) [address] [place], [address], 10/24/2023 16:12:13 10/24/19 24 10/24/2023 CBC AUTO W DIFF lymphocyte% 18.4 % 20.5-4 5.5 low Not Available [facility] ([facility]) [address] [place], [address], 10/24/2023 16:12:13 10/24/19 24 10/24/2023 CBC AUTO W DIFF monocyte% 8.7 % 5.5-11 .7 Not Available [facility] ([facility]) [address] [place], [address], 10/24/2023 16:12:13 10/24/19 24 10/24/2023 CBC AUTO W DIFF eosinophil% 2.3 % 0.9-2. 9 Not Available [facility] ([facility]) [address] [place], [address], 10/24/2023 16:12:13 10/24/19 24 10/24/2023 CBC AUTO W DIFF basophil% 0.4 % 0.2-1. 0 Not Available [facility] ([facility]) [address] [place], [address], 10/24/2023 16:12:13 10/24/19 24 10/24/2023 CBC AUTO W DIFF immature granulocytes % 0.1 % 0.0-0. 8 Not Available [facility] ([facility]) [address] [place], [address], 10/24/2023 16:12:13 10/24/19 24 10/24/2023 CBC AUTO W DIFF nucleated red blood cells % 0.0 % Not Available [facility] ([facility]) [address] [place], [address], 10/24/2023 16:12:13 10/24/19 24 10/24/2023 CBC AUTO W DIFF neutrophil# 4.8 K/uL 2.2-4. 8 Not Available [facility] ([facility]) [address], [place], [address], 10/24/2023 16:12:13 10/24/19 24 10/24/2023 CBC AUTO W DIFF lymphocyte# 1.3 cell/ mcL 1.3-2. 9 Not Available [facility] ([facility]) [address], [place], [address], 10/24/2023 16:12:13 10/24/19 24 10/24/2023 CBC AUTO W DIFF monocyte# 0.6 cell/ mcL 0.3-0. 8 Not Available [facility] ([facility]) [address], [place], [address], 10/24/2023 16:12:13 10/24/19 24 10/24/2023 CBC AUTO W DIFF eosinophil# 0.2 cell/ mcL 0-0.2 Not Available [facility] ([facility]) [address] [facility], [place], [address], 10/24/2023 16:12:13 10/24/19 24 10/24/2023 CBC AUTO W DIFF basophil# 0.0 cell/ mcL 0.0-1. 0 Not Available [facility] ([facility]) [address] [facility], [place], [address], 10/24/2023 16:12:13 10/24/19 24 10/24/2023 CBC AUTO W DIFF immature gramulocytes # 0.01 K/uL Not Available [facility] ([facility]) [address] [facility], [place], [address], 10/24/2023 16:12:13 10/24/19 24 10/24/2023 CBC AUTO W DIFF nucleated red blood cells # 0.00 K/uL Not Available [facility] ([facility]) [address], [place], [address], 10/24/2023 16:12:13 10/24/19 24 10/24/2023 CBC AUTO W DIFF manual differential NO Not Available [facility] ([facility]) [address], [place], [address], 10/24/2023 16:12:13 10/24/19 24 10/24/2023 COMP METAB OLIC PANEL sodium 139 mmol/ L 136-14 5 Not Available [facility] ([facility]) [address] , [place], [address], 10/24/2023 16:42:07 10/24/19 24 10/24/2023 COMP METAB OLIC PANEL potassium 4.0 mmol/ L 3.6-5. 0 Not Available [facility] ([facility]) [address] , [place], [address], 10/24/2023 16:42:07 10/24/19 24 10/24/2023 COMP METAB OLIC PANEL chloride 104 mmol/ L 98-107 Not Available [facility] ([facility]) [address] , [place], [address], 10/24/2023 16:42:07 10/24/19 24 10/24/2023 COMP METAB OLIC PANEL carbon dioxide 28.1 mmol/ L 21.0-3 2.0 Not Available [facility] ([facility]) [address] , [place], [address], 10/24/2023 16:42:07 10/24/19 24 10/24/2023 COMP METAB OLIC PANEL anion gap 10.9 Not Available [facility] ([facility]) [address] , [place], [address], 10/24/2023 16:42:07 10/24/19 24 10/24/2023 COMP METAB OLIC PANEL glucose 99 mg/dL 70-120 Not Available [facility] ([facility]) [address], [place], [address], 10/24/2023 16:42:07 10/24/19 24 10/24/2023 COMP METAB OLIC PANEL BUN 16 mg/dL 7-18 Not Available [facility] ([facility]) [address], [place], [address], 10/24/2023 16:42:07 10/24/19 24 10/24/2023 COMP METAB OLIC PANEL creatinine 0.9 mg/dL 0.6-1. 3 Not Available [facility] ([facility]) [address], [place], [address], 10/24/2023 16:42:07 10/24/19 24 10/24/2023 COMP METAB OLIC PANEL glomerular filtration rate >60 mlper min 60- Not Available [facility] ([facility]) [address], [place], [address], 10/24/2023 16:42:07 10/24/19 24 10/24/2023 COMP METAB OLIC PANEL total protein 7.2 g/dL 6.4-8. 2 Not Available [facility] ([facility]) [address], [place], [address], 10/24/2023 16:42:07 10/24/19 24 10/24/2023 COMP METAB OLIC PANEL albumin 3.6 g/dL 3.4-5. 0 Not Available [facility] ([facility]) [address], [place], [address], 10/24/2023 16:42:07 10/24/19 24 10/24/2023 COMP METAB OLIC PANEL globulin 3.6 Not Available [facility] ([facility]) [address], [place], [address], 10/24/2023 16:42:07 10/24/19 24 10/24/2023 COMP METAB OLIC PANEL alb/glob ratio 1.0 0.7-2 Not Available [facility] ([facility]) [address], [place], [address], 10/24/2023 16:42:07 10/24/19 24 10/24/2023 COMP METAB OLIC PANEL calcium 8.6 mg/dL 8.5-10 .5 Not Available [facility] ([facility]) [address], [place], [address], 10/24/2023 16:42:07 10/24/19 24 10/24/2023 COMP METAB OLIC PANEL bilirubin total 0.50 mg/dL 0.10-1 .00 Not Available [facility] ([facility]) [address], [place], [address], 10/24/2023 16:42:07 10/24/19 24 10/24/2023 COMP METAB OLIC PANEL AST (SGOT) 23 U/L 0-37 Not Available [facility] ([facility]) [address], [place], [address], 10/24/2023 16:42:07 10/24/19 24 10/24/2023 COMP METAB OLIC PANEL ALT (SGPT) 39 U/L 0-65 Not Available [facility] ([facility]) [address], [place], [address], 10/24/2023 16:42:07 10/24/19 24 10/24/2023 COMP METAB OLIC PANEL alk phosphatase 80 U/L 46-116 Not Available [facility] ([facility]) [address], [place], [address], 10/24/2023 16:42:07 10/25/19 24 10/26/2023 SEDIM ENTAT ION RATE- WESTE RGREN sedimentatio n rate-westerg los 5 mm/HR 0-15 Not Available [facility] ([facility]) [address] [facility], [place], [address], 11/03/2023 15:11:19 10/25/19 24 10/27/2023 C-CHANA CTIVE PROTE IN, QUANT C-reactive protein, quant 15 mg/L 0-10 above high normal Not Available [facility] ([facility]) [address] [facility], [place], [address], 11/03/2023 15:11:21 04/23/20 24 04/23/2024 C-CHANA CTIVE PROTE IN (CRP) C-reactive protein, quant 1.1 mg/dL 0.05-0 .300 high Not Available [facility] ([facility]) [address] [facility], [place], [address], 04/23/2024 10:36:29 04/23/20 24 04/23/2024 SED RATE sed rate auto 4 0-15 Not Available [facility] ([facility]) [address] [facility], [place], [address], 04/23/2024 10:54:51 11/20/19 24 11/20/2023 arti melgar x US lwr RT ext [facility] [address] [place] [address] Phone: Fax: Name: GAYATHRI DENNIS Exam Date: 024 : 1979 Age 43 years Gender : M Access ion: [id number] Physic lou: HENEGA R, LUCI Facili ty: [facility] Facili ty HSV: Outpat ient Exam: VENOUS [...] 11:51 AM Electr onical ly signed by: Joes Luciano Thank you for referr ing GAYATHRI DENNIS to [facility]. Legall y authen ticate d by YANELIS DÍAZ 11-19 11:51: 02 CC'ed Logic: Orderi ng Provid er: SPENCER OSUNA Attend ing Provid er: SPENCER OSUNA Referr ing Provid er: SPENCER OSUNA Admitt ing Provid er: SPENCER OSUNA [address] - Physical Therapy [address] [facility], [place], [address], 11/20/2023 12:58:54 11/20/19 24 11/20/2023 CT, angio gram, chest , w/ [facility] [address] [place] [address] Phone: Fax: Name: GAYATHRI DENNIS Exam Date: : 1979 Age 43 years Gender : M Access ion: [id number] Physic lou: LUCI BRADFORD Facili ty: [facility] Facili ty HSV: Outpat ient Exam: CTA [...] for referr ing GAYATHRI DENNIS Gilberto to [facility]. Legall y authen ticate d by YANELIS Macias IVO 2023-11-19 12:06: 58 CC'ed Logic: Orderi ng Provid er: SPENCER OSUNA Attend ing Provid er: SPENCER OSUNA Referr ing Provid er: SPENCER OSUNA Admitt ing Provid er: SPENCER OSUNA [email or web address] [facility] [address] [place] [address], [place], [address], 11/21/2023 16:18:56 Result Notes Documentation Provider Name and Address Organization Details Recorded Time Ct, Angiogram, Chest, W/ Contrast : [address] [address] Name: MITCHELLWON RAYO Exam Date: 11/20/2023 : 1980 Age 43 years Gender: M Physician: LUCI BARNES Facility: [facility] Facility HSV: Outpatient Exam: CTA CHEST PE [...] Thank you for referring WON DENNIS to [facility]. Legally authenticated by RENALDO DÍAZ 2023-11-20 12:06:58 CC'ed Logic: Ordering Provider: MOLLY OSUNA Attending Provider: MOLLY OSUNA Referring Provider: MOLLY OSUNA Admitting Provider: MOLLY jaramillo [place] - [facility] - [place] & [place] 11/21/2023 16:18:56 Problems Name Problem SNOMED Code Status Onset Date Resolution Date Notes Provider Name and Address Organization Details Recorded Time Methicillin resistant Staphylococ cus aureus infection 538507203 Active 2023 Amy jaramillo [place] - [facility] & [place] 10:16:00 High risk medication monitoring indicated 8610957459355 9103 Active 2023 YVON Palomo - [facility] - [place] & [place] 10:16:36 Problem Notes None recorded. Procedures Surgical History Date Name Laterality Status Provider Name and Address Organization Details Recorded Time 03/26/20 [address], [place], [address], [place] - [facility] & [place] 03/18/2024 14:56:10 10/24/19 24 Venipuncture completed [address], [place], [address], [place] - [facility] & [place] 10/23/2023 10:53:19 07/25/19 24 [facility] [place] 07/25/2023 14:41:20 amputation of lower limb [facility] [place] 07/25/2023 13:57:05 Imaging Results None recorded. Procedure Notes None recorded. Medical Equipment None Reported. Allergies Allergen ID Allergen Name Allergen Category Reaction Reaction Severity Criticality Documentation Date Start Date Code Code System Note Provider Name and Address Organization Details Recorded Time 029101 cefdinir medicatio n Not available Not available Not available 06/02/2023 36200 RxNorm Isabel jaramillo, [facility] & [place] 10:06:00 Medications Name Sig Start Date Stop [...] [degF] 96 % 96 % 81 /min 733121. 75 g 81 /min Isabel Kay [facility] & [place] 4 08:59:33 Date Recorded Body weight Body temperature Heart rate Oxygen saturation Oxygen saturation in Arterial blood by Pulse oximetry Systolic And Diastolic Provider Name and Address Organization Details Last Updated DateTime 4 089083. 53 g 97.8 [degF] 89 /min 95 % 95 % 134/82 mm[Hg] Sarahsri Hendersonmaaynk [facility] & [place] 4 13:54:07 Date Recorded Body height Body mass index (BMI) Body weight Body temperature Heart rate Oxygen saturation Oxygen saturation in Arterial blood by Pulse oximetry Systolic And Diastolic Provider Name and Address Organization Details Last Updated DateTime 4 182.88 cm 43.3 kg/m2 227784. 97 g 98 [degF] 95 /min 96 % 96 % 137/92 mm[Hg] Sarahsri Hendersonmayank [facility] & [place] 4 14:44:48 Date Recorded Body height Body mass index (BMI) Body weight Body temperature Oxygen saturation Oxygen saturation in Arterial blood by Pulse oximetry Heart rate Systolic And Diastolic Provider Name and Address Organization Details Last Updated DateTime 4 182.88 cm 43.2 kg/m2 424545. 81 g 98.6 [degF] 95 % 95 % 86 /min 134/84 mm[Hg] Amy Aquino [facility] & [place] 4 08:59:12 Date Recorded Body height Body mass index (BMI) Body weight Body temperature Oxygen saturation Oxygen saturation in Arterial blood by Pulse oximetry Heart rate Systolic And Diastolic Provider Name and Address Organization Details Last Updated DateTime 4 182.88 cm 42.9 kg/m2 904227. 19 g 98 [degF] 94 % 94 % 70 /min 140/80 mm[Hg] Kalie Gibbs [place] - [facility] & [place] 4 09:24:00 Social History None recorded. Functional Status Question Answer Note LastModified by Organizat ion Details LastModified Time Do you use any illicit or recreational drugs? No [email or web address] Information not available 07/25/2023 What is your level of alcohol consumption? Occasional [email or web address] Information not available 07/25/2023 Mental Status None recorded. Family History Nothing Reported. Medical History No medical history recorded. Immunizations Vaccine Type Date Status Note Provider Nam e and Address Organization Details Recorded Time Td (adult), 2 Lf tetanus toxoid, preservative free, adsorbed 6 completed Sarah jaramillo, [facility] & [place] 07/25/2023 13:54:15 Past Encounters Encounter ID Performer Location Encounter Start Date Encounter Closed Date Diagnosis/Indication Diagnosis SNOMED-CT Code Diagnosis ICD10 Code Diagnosis IMO Codes Diagnosis Note [id number] Randy Torres MD [facility] Infectiou s Disease [address] [facility] [address] [place] [address] 06/02/2023 09:54:50 06/02/2023 10:26:43 Osteomyelitis 83792831 M86.9 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 Influenza caused by Influenza A virus 213327940 J09.X2 Resolved.. No further oseltamivi r needed. High risk medication monitoring indicated 0799717108 5022282 Z76.89 Related to the daptomycin . I will check a total CK and continue to follow serial levels of this enzyme to make sure he develops no rhabdomyol ysis. [id number] Randy Torres MD [facility] Infectiou s Disease [address] [facility] [place] [address] 06/09/2023 10:23:03 06/09/2023 10:54:12 Osteomyelitis 32249767 M86.9 Occurring in the right BKA stump [...] time. Methicilli n resistant Staphylococcus aureus infection 330632588 A49.02 As above High risk medication monitoring indicated 6466363441 3244246 Z76.89 This is related to the daptomycin . I will continue to monitor his total CK levels closely. [id number] Randy Torres MD [facility] Infectiou s Disease [address] [place] [address] 06/28/2023 10:37:09 06/28/2023 11:22:08 Osteomyelitis 24406063 M86.9 Occurring in the right BKA stump [...] week. Methicilli n resistant Staphylococcus aureus infection 191341352 A49.02 As above [id number] Randy Torres MD [facility] Infectiou s Disease [address] [place] [address] 07/06/2023 09:38:06 07/06/2023 10:00:10 Osteomyelitis 61668329 M86.9 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 Methicilli n resistant Staphylococcus aureus infection 846857832 A49.02 As above Adverse re action to drug 26865619 T50.905A Related to doxycyclin e. This is gastrointe stinal in nature. I will check his liver function testing to make sure he is not developing any hepatotoxi city. I will drop the dose to 100 mg per day. I want him to continue to take it with food. I will re-evaluat e next week. [id number] Randy Torres MD [facility] Infectiou s Disease [address] [place] [address] 07/12/2023 08:53:12 07/12/2023 09:54:35 Osteomyelitis 92970718 M86.9 Occurring in the right BKA stump [...] month. Methicilli n resistant Staphylococcus aureus infection 359280126 A49.02 As above [id number] Luci Barnes PA-C [facility] [address] [place] [address] 07/25/2023 13:39:19 07/26/2023 06:33:52 Deep venous thrombosis 407457738 I82.409 Patient has a history of osteomyeli [...] performed when patient was hospitaliz ed at [facility] on May 26, 2023 with normal antithromb in 3 activity. No evidence of factor 5 Leiden mutation. Discussed with patient will order additional labs for further evaluation acquired hypercoagu lable disorder today. Discussed will likely continue on least the prophylact ic dose of Eliquis lifelong due to separate occurrence s of blood clots. Pulmonary embolism 23390 003 I26.99 Patient has a history of [...] s of blood clots. Anticoagulant therapy 18 0087941 Z79.01 Patient continues on Eliquis 5 mg 1 tab p.o. b.i.d.. He is tolerating without trouble. Discussed will likely continue on least the prophylact ic dose of Eliquis lifelong due to separate occurrence s of blood clots. [id number] Luci Barnes PA-C [facility] [address] [facility] [address] [place] [address] 10/24/2023 14:29:27 10/24/2023 15:33:34 Deep venous thrombosis 950988166 I82.409 Patient has a history of osteomyeli [...] performed when patient was hospitaliz ed at [facility] on May 26, 2023 with normal antithromb [...] Will follow up labs today. Pulmonary embolism 79517 003 I26.99 Patient has a history of [...] follow up labs today. Anticoagulant therapy 18 1269424 Z79.01 Patient continues on Eliquis 5 mg 1 tab p.o. b.i.d.. He is tolerating without trouble. Discussed will continue on least the prophylact ic dose of Eliquis lifelong due to separate occurrence s of blood clots. Will follow up venous duplex of lower extremity and chest CTA to make sure no evidence of embolism before reducing Eliquis dose to 2.5 mg b.i.d. [id number] Randy Torres MD [facility] Infectiou s Disease [address] [place] [address] 10/25/2023 08:49:58 10/25/2023 10:57:40 Osteomyelitis 22790613 M86.9 Occurring in the right BKA stump [...] months. Methicilli n resistant Staphylococcus aureus infection 641619949 A49.02 As above High risk medication monitoring indicated 9472534295 6054325 Z76.89 This is related to the chronic suppressiv e doxycyclin e. I reviewed his liver function testing from yesterday. There is no evidence of any hepatotoxi city. I will continue to monitor this at each visit. I also counseled him about the risk of photosensi tivity with doxycyclin e. [id number] Randy Torres MD [facility] Infectiou s Disease -[address] [place] [address] 04/23/2024 09:14:33 04/23/2024 09:34:49 Osteomyelitis 29017904 M86.9 Occurring in the right BKA stump [...] month. Methicilli n resistant Staphylococcus aureus infection 575368068 A49.02 As above Health Concerns Section Related Observation LastModified by Organization Detai ls LastModified Time None Recorded Concern Status LastModified by Organization Details LastModified Time None Recorded Advance Directives Directive None Recorded Payers Insurance Date Sequence Insurance Name Policy Number Policy Brantley Covered Member ID Brantley Member ID Guarantor Name 01/27/2024 1 [employer] [id number] Won Dennis [id number] Won Dennis 05/18/2024 1 LENNY Dennis [id number] Won Dennis Notes Date Note Type Note Provider Name and Address Organization Details Recorded Time 07/12/2023 text/html ROS as noted in the HPI This is a 42-year-old white male following up with me for [...] incision remains completely healed. Randy Torres MD [address], [place], [address], [facility] & [place] 07/12/2023 09:50:44 07/25/2023 text/html 43-year-old male presents [...] Labs performed when patient was hospitalized at [facility] on May 26, 2023 with normal antithrombin 3 activity. No evidence of factor 5 Leiden mutation. Discussed with patient will order additional labs for further evaluation acquired hypercoagulable disorder today. Discussed will likely continue on least the prophylactic dose of Eliquis lifelong due to separate occurrences of blood clots. Luci Barnes PA-C [address], [place], [address], [facility] & [place] 07/25/2023 15:32:35 10/24/2023 text/html 43-year-old male presents [...] Labs performed when patient was hospitalized at [facility] on May 26, 2023 with normal antithrombin [...] follow up labs today. Luci Barnes PA-C [address], [place], [address], [facility] - [place] & [place] 10/24/2023 15:43:34 10/25/2023 text/html ROS as noted in the HPI This is a 42-year-old white male following up with ia for right BKA stump osteomyelitis due to [...] He is doing well. 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 Since his debridement, he completed 6 weeks of intravenous daptomycin and 1 year of suppressive doxycycline. He is remained infection free. His stump is fully healed. No fever. No other issues. He is tolerating the doxycycline well. Randy Torres MD [address], [place], [address], [place] - [facility] [place] & [place] 04/23/2024 09:31:22
--- OUTSIDE RECORDS SUMMARY | 2025-04-03 21:53 | XMS_ITS | Patient Health Record ---
Author Organization [facility] Address [address] [facility] [address] [place] [id number] Care Team Providers Care Roofing Supervisor Name Role Phone Zeeshan Salazar Primary Care Provider Allergies No Known Allergies Medications Medication SIG (Take, Route, Frequency, Duration) Notes Start Date End Date Status Xarelto 20 MG 1 tab(s) orally once a day (in the evening); Duration: 30 days Not-Taking Eliquis 5 MG TAKE 1 TABLET BY BRANDON TH TWICE DAILY Active Gabapentin 300 MG 1 cap(s) orally 3 ti mes a day; Duration: 30 day(s) Not-Taking Escitalopram Oxalate 10 MG 1 tab(s) orally once a day; Duration: 30 day(s) 07/18/2022 Not-Taking Methocarbamol 500 MG 2 tab(s) orally 4 t imes a day; Duration: 5 day(s) Not-Taking DAPTOmycin 500 MG as directed Intravenous Active Immunizations Vaccine Route Administration Date Status Comme nts DT, 7 YEARS OR OLDER Unknown 02/05/1996 Administered Problems Problem Type SNOMED Code ICD Code Onset Dates Problem Status W/U Status Risk Notes Problem Essential hypertension (59734753) HTN [Hypertension] (401.9) Active confirmed appears resolved Problem Hypothyroidism (45311923) Hypothyroidism NOS (244.9) Active confirmed Problem Hyperlipidemia (33812330) Hyperlipidemia (272.4) Active confirmed Problem Constipation (20041690) Constipation, unspecified constipation type (K59.00) Active confirmed Problem History of pulmonary embolism on long-term anticoagulation therapy (36299331096315976 ) Hx pulmonary embolism (Z86.711) Active confirmed Problem Long-term current use of anticoagulant (121714744) Current use of terminal carman anticoagulation (Z79.01) Active confirmed Problem Adjustment disorder with anxious mood (43675657) Adjustment disorder with anxious mood (F43.22) Active confirmed Problem History of pulmonary embolus (236775623) History of pulmonary embolus (PE) (Z86.711) Active confirmed Problem Methicillin resistant Staphylococcus aureus infection (disorder) (956696190) Infection of wound due to methicillin resistant Staphylococcus aureus (MRSA) (A49.02) Active confirmed Problem Arthritis of knee (678720392) Arthritis of knee (M17.10) Active confirmed Problem Amputated below knee (246186213) Status post below knee amputation of right lower extremity (Z89.511) Active confirmed Problem Gastroesophageal reflux disease (396500450) Gastroesophageal reflux disease, unspecified whether esophagitis present (K21.9) Active confirmed Plan Of Treatment No Information Medical (General) History Medical History History ICD Code Psoriasis Allergic Rhinitis Arthritis, knees MRSA rt foot 06/2022 osteomyelitis, MRSA, s/p multiple surger ies and RLE amputation pulmonary embolism x 2 Surgical History Surgery Date(Month/Year) Back 2003 LT Ankle RT foot 07/08/2022 RT foot 07/12/2022
[2025-04-03 21:54] VITALS: BP 124/72; PULSE 65; O2SAT 96
[2025-04-03 22:00] VITALS: BP 115/72; PULSE 88; O2SAT 95
[2025-04-03 22:20] VITALS: BP 115/72; PULSE 98; RESP 20; TEMP 37.1; O2SAT 97; BMI 41.1
[2025-04-03 22:30] VITALS: BP 132/85; PULSE 79; O2SAT 96
--- NOTE | 2025-04-03 22:33 | CT_ITS ---
PROCEDURE INFORMATION: Exam: CT Right Lower Extremity With Contrast, Leg Exam date and time: 04/03/2025 11:26 PM Age: 44 years old Clinical indication: Pain; Lower leg; Right; Additional info: S/P bka, possible osteo/abscess/infected stump TECHNIQUE: Imaging protocol: CT of the right lower extremity with intravenous contrast was performed. Exam focused on the lower leg. Radiation optimization: All CT scans at this facility use at least one of these dose optimization techniques: automated exposure control; mA and/or kV adjustment per patient size (includes targeted exams where dose is matched to clinical indication); or iterative reconstruction. Contrast material: ISOVUE; Contrast volume: 85 ml; Contrast route: IV; COMPARISON: CT FOOT RT W CON 07/04/2022 2:14 AM FINDINGS: Bones/joints: Findings consistent with below-knee amputation. The osseous structures are intact. There is no. No lytic process osteomyelitis. Soft tissues: There is significant subcutaneous edema and skin thickening most prominent anterolaterally. There is a focal fluid collection with peripheral mildly enhancing rim distally, anteromedial to the distal tibia, noted on series 4, images 93 through 96. This measures maximum 10 x 17 mm in axial dimension. IMPRESSION: Findings consistent with cellulitis and suspected small abscess anterolaterally at the distal tibial level. No CT evidence for osteomyelitis.
--- NOTE | 2025-04-03 22:35 | ED_ITS ---
Discharge Plan Disposition Patient Disposition: Home, Self-Care Prescriptions Prescriptions: New doxycycline hyclate 100 mg tablet 100 mg PO BID 10 Days Qty: 20 0RF No Action sertraline 100 mg tablet 100 mg PO DAILY Qty: 90 3RF (DME) FreeStyle Cindy 3 Plus Sensor Device See Rx Instructions .ROUTE .MEDSUPPLY Qty: 2 11RF Rx Instructions: As directed methocarbamol 1,000 mg tablet 1,000 mg PO TID Qty: 90 0RF Zepbound 2.5 mg/0.5 mL pen injector 2.5 mg SQ WEEKLY Qty: 2 0RF Rx Instructions: for 4 weeks furosemide [Lasix] 20 mg tablet 20 mg PO DAILY PRN (Reason: edema) Qty: 30 2RF tadalafil [Cialis] 5 mg tablet 5 mg PO DAILY Qty: 90 3RF budesonide-formoterol [Symbicort] 160-4.5 mcg/actuation HFA aerosol inhaler 2 puff inhalation BID 90 Days Qty: 10.2 2RF albuterol sulfate [Ventolin HFA] 90 mcg/actuation HFA aerosol inhaler 2 inh inhalation Q6H PRN (Reason: shortness of breath or wheezing) 90 Days Qty: 18 3RF oxybutynin chloride 10 mg tablet extended release 24hr 10 mg PO DAILY Qty: 90 3RF tamsulosin [Flomax] 0.4 mg capsule 0.4 mg PO DAILY 90 Days Qty: 90 3RF omega-3 acid ethyl esters 1 gram capsule See Rx Instructions .ROUTE .COMPLEX Qty: 90 3RF Dose Instruction: TAKE 1 CAPSULE BY MOUTH ONCE DAILY Rx Instructions: TAKE 1 CAPSULE BY MOUTH ONCE DAILY atorvastatin 40 mg tablet See Rx Instructions .ROUTE .COMPLEX Qty: 90 3RF Dose Instruction: TAKE 1 TABLET BY MOUTH AT BEDTIME NIGHTLY Rx Instructions: TAKE 1 TABLET BY MOUTH AT BEDTIME NIGHTLY Eliquis 5 mg tablet 5 mg PO BID Qty: 180 1RF ferrous sulfate [FeroSul] 325 mg (65 mg iron) tablet See Rx Instructions .ROUTE .COMPLEX Qty: 180 2RF Dose Instruction: TAKE 1 TABLET BY MOUTH TWICE A DAY Rx Instructions: TAKE 1 TABLET BY MOUTH TWICE A DAY ezetimibe 10 mg tablet See Rx Instructions .ROUTE .COMPLEX Qty: 90 2RF Dose Instruction: TAKE 1 TABLET BY MOUTH AT BEDTIME Rx Instructions: TAKE 1 TABLET BY MOUTH AT BEDTIME hydrochlorothiazide 12.5 mg tablet See Rx Instructions .ROUTE .COMPLEX Qty: 90 2RF Dose Instruction: TAKE 1 TABLET BY MOUTH EVERY MORNING Rx Instructions: TAKE 1 TABLET BY MOUTH EVERY MORNING valsartan 40 mg tablet 40 mg PO DAILY Qty: 90 3RF famotidine 20 mg tablet 20 mg PO BID Qty: 60 2RF [facility] 10 billion cell -200 mg capsule, sprinkle See Rx Instructions .ROUTE .COMPLEX Qty: 90 2RF Dose Instruction: TAKE 1 CAPSULE BY MOUTH ONCE DAILY Rx Instructions: TAKE 1 CAPSULE BY MOUTH ONCE DAILY prednisone 20 mg tablet 20 mg PO BID 7 Days Qty: 14 0RF Referrals Follow up/Referrals: Melanie Gardner APRN [Primary Care Provider, Family Practice] - See instructions Activity Restrictions/Add. Instructions Additional Instructions/Restrictions: Please take doxycycline as prescribed for treatment of possible infection. Please follow-up with your team for further assessment. Return to the emergency department if your symptoms worsen or do not improve. Clinical Impressions Clinical Impression: Cellulitis Qualifiers: Site of cellulitis of extremity: lower extremity Laterality: right Print Language Print Language: Turkmen Discharge ED Provider: Josh Alexander General Adult HPI <Bismark Rowley MD - Last Filed: 04/04/25 02:11> General Chief complaint: PAIN Stated complaint: stump on right leg swollen Time Seen by Provider: 04/03/25 22:27 Mode of Arrival: Wheelchair Source of Information: Patient Description of Symptoms (Recalled from ER Triage Doc. by RN): pt report a swolen amputation on the anterior aspect of his stump. pt reports the significant swelling began today and increase in rajni. 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 Patient states that he got a new prosthesis for his right leg 3 weeks ago and has had some swelling to the distal stump ever since. He does state that there is a part of the prosthesis that rubs the front of his leg. He states that over the last 16 hours, he has had increasing swelling, pain and warmth to the area. He has had multiple infections in the past and wants to make sure it is not infected. He denies any fevers. Related Data Previous Rx's ?Medication ?Instructions ?Recorded albuterol sulfate 90 mcg/actuation 2 inh inhalation Q6 H PRN shortness 08/12/24 aerosol inhaler (Ventolin HFA) of breath or wheezing 9 0 days #18 grams oxybutynin chloride 10 mg 10 mg PO DAILY #90 tabs 09/08 0 tablet,extended release 24 hr tamsulosin 0.4 mg capsule (Flomax) 0.4 mg PO DAILY 90 days #90 caps 09/26/24 blood-glucose sensor (FreeStyle #2 ea 10/21/24 Cindy 3 Plus Sensor device) sertraline 100 mg tablet 100 mg PO DAILY #90 tabs atorvastatin 40 mg tablet See Rx Instructions .Route 0 11/14/24 .COMPLEX #90 ea omega-3 acid ethyl esters 1 gram See Rx Instructions . Route 11/14/24 capsule .COMPLEX #90 caps apixaban 5 mg tablet (Eliquis) 5 mg PO BID #180 tabs 0 11/25/24 methocarbamol 1,000 mg tablet 1,000 mg PO TID #90 tabs 12/05/24 budesonide-formoterol HFA 160 2 puff inhalation BID 90 days 12/09/24 mcg-4.5 mcg/actuation aerosol #10.2 grams inhaler (Symbicort) ferrous sulfate 325 mg (65 mg See Rx Instructions .Rou te 12/20/24 iron) tablet (FeroSul) .COMPLEX #180 tabs furosemide 20 mg tablet (Lasix) 20 mg PO DAILY PRN lotus ma #30 tabs 01/16/25 tadalafil 5 mg tablet (Cialis) 5 mg PO DAILY #90 tabs 01/16/25 tirzepatide (weight loss) 2.5 2.5 mg (0.5 mL) SQ WEEKL Y #2 mL 01/16/25 mg/0.5 mL subcutaneous pen injector (Zepbound) prednisone 20 mg tablet 20 mg PO BID 7 days #14 tabs 01/20/25 ezetimibe 10 mg tablet See Rx Instructions .Route 0 01/24/25 .COMPLEX #90 tabs hydrochlorothiazide 12.5 mg tablet See Rx Instructions .Route 01/24/25 .COMPLEX #90 tabs valsartan 40 mg tablet 40 mg PO DAILY #90 tabs 01/08 08/03 famotidine 20 mg tablet 20 mg PO BID #60 tabs Lactobacil rhamnosus GG 10 billion See Rx Instructions .Route 04/02/25 cell-inulin 200 mg sprinkle .COMPLEX #90 caps capsule ([facility] [employer] [facility]) doxycycline hyclate 100 mg tablet 100 mg PO BID 10 day s #20 tabs 04/04/25 Allergies Allergy/AdvReac Type Severity Reaction Status Date / Time Latex, Natural Rubber Allergy Mild cooper skin Verified 01/16/25 08:43 lisinopril AdvReac Severe dizziness, Verified 01/16/25 08:43 lightheadedness [id number] Reductase AdvReac Intermediate elevated Verified 01/16/25 08:43 Inhibitor CK, rhabdo cephalexin (From Keflex) AdvReac Mild Vomiting Verified 01/16/25 08:43 PFS <Bismark Rowley MD - Last Filed: 04/04/25 02:11> [facility] Disclaimer: The information contained in this section may have been updated after the patient was seen, as this information can be updated by other users. Medical History Asthma Encounter for screening examination for sexually transmitted disease Lipid screening Establishing care with new doctor, encounter for Myalgia Rhabdomyolysis Respiratory infection Viral upper respiratory infection Lung nodule JOHN (obstructive sleep apnea) Dyspnea on exertion Pulmonary air trapping Multiple lung nodules on CT E-coli UTI Right lower lobe pneumonia History of pulmonary embolism Testicular disorder left Foot infection Surgical site infection Open wound of right heel Plantar fasciitis of right foot Callus of foot Acquired equinus deformity of both feet Acquired hallux valgus of both feet BMI 40.0-44.9, adult MRSA infection Constipation Neelima infection Acute osteomyelitis of right calcaneus Constipation Hypoxemia Postoperative seroma Pulmonary embolism Acute viral syndrome Phantom pain after amputation of lower extremity Lumbar radiculopathy Fever Itching due to drug Viral syndrome H1N1 influenza Fever History of COVID-19 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 Anemia GERD (gastroesophageal reflux disease) Psoriasis Adiel's deformity of right heel Exposure to 2019 novel coronavirus Migraine Acquired hammertoes of both feet Right Achilles tendinitis Heel spur Right Achilles bursitis Laceration of right index finger GI bleed Surgical History Status post below knee amputation of right lower extremity History of incision and drainage Multiple procedures on right calcaneous History of foot surgery Hx of surgical amputation of finger 7 surgeries to finger/partial amputation Previous back surgery Status post tendon repair left ankle Family History Other Hypertension Social History Smoking Status: Never smoker alcohol intake: current alcohol intake frequency: a few times a month substance use type: denies use current occupational status: retired and disabled Travel in the last 8 weeks?: Inside the [place] household members: spouse and children housing: house lives independently: No education level: high school caffeine: Yes special davin needs: No agree to transfusion: No do you feel safe at home: Yes victim of physical abuse: No victim of emotional abuse: No victim of sexual abuse: No would you like helpful sources: No Have you lived/traveled outside [place] in past 30 days?: No Contact w/someone who lives/traveled outside [place] past 30 days?: No Exposure to someone with infectious disease in past 14 days?: No Do you have a fever (greater than 100.4 F or 38 C)?: No Have you tested positive for COVID-19?: No Exposed to someone with COVID-19 in past 14 days?: No Do you have a sore throat?: No Do you have a cough?: No Do you have any weakness?: No Do you have any diarrhea?: No Are you experiencing any unusual bleeding?: No Do you have any muscle aches/pain?: No Do you have any abdominal pain?: No Are you experiencing loss of taste or smell?: No Other Medical History Have you received the Flu Vaccine for this season: No Have you received the Pneumonia Vaccine: No <Bismark Rowley MD - Last Filed: 04/04/25 02:11> ROS Obtained: Yes Systems reviewed as appropriate & no additional complaints except as documented Physical Exam <Bismark Rowley MD - Last Filed: 04/04/25 02:11> General General appearance: alert and in no apparent distress Head Head exam: atraumatic Eye Eye exam: Present normal appearance ENT ENT exam: Present normal external ear exam Neck Neck exam: Present full ROM Chest Chest inspection: Present symmetric chest wall rise Respiratory Respiratory exam: Present normal lung sounds bilaterally; Absent respiratory distress Cardiovascular Cardiovascular exam: Present regular rate and normal rhythm Abdominal Exam Abdominal exam: Present soft; Absent tenderness or guarding exam: Present deferred Extremities Exam Extremities exam: Present normal inspection Expanded Lower Extremity Exam Right: Comment: S/p right BKA. Patient's stump surgical site appears to have healed well. Patient has some warmth, swelling and induration over the distal anterior portion of the stump. This is mildly tender. There is no significant erythema. Patient has no civic and swelling or erythema to the posterior side of the distal stump. Back Exam Back exam: Present normal inspection Neurological Exam Neurological exam: Present alert and oriented X3 Psychiatric Psychiatric exam: Present normal affect Skin Skin exam: Present warm and dry Medical Decision Making <Bismark Rowley MD - Last Filed: 04/04/25 02:11> Medical Records Screening: Per USPSTF and CDC recommendations, given the prevalence of disease in our region, it is our hospital?s policy to screen for HIV and viral Hepatitis for all patients aged 18 and over and those with ongoing risk factors. Aries Inquiry Pt receiving controlled substance: No Vital Signs: 04/03/25 21:54 04/03/25 22:00 04/03/25 22:20 Temperature 98.7 F Temperature Source Oral Pulse Rate 65 88 Pulse Rate [Right] 98 H Respiratory Rate 20 Blood Pressure 124/72 115/72 Blood Pressure [Right Arm] 115/72 Blood Pressure Mean [Right Arm] 86 Blood Pressure Source 02 Sat by Pulse Oximetry 96 95 97 Oxygen Delivery Method 04/03/25 22:30 04/03/25 23:00 04/04/25 00:00 Temperature Temperature Source Pulse Rate 79 89 83 Pulse Rate [Right] Respiratory Rate Blood Pressure 132/85 127/88 129/80 Blood Pressure [Right Arm] Blood Pressure Mean [Right Arm] Blood Pressure Source 02 Sat by Pulse Oximetry 96 95 97 Oxygen Delivery Method 04/04/25 00:30 04/04/25 02:15 Temperature 98.5 F Temperature Source Oral Pulse Rate 85 85 Pulse Rate [Right] Respiratory Rate 18 Blood Pressure 126/86 135/85 Blood Pressure [Right Arm] Blood Pressure Mean [Right Arm] Blood Pressure Source Automatic Cuff 02 Sat by Pulse Oximetry 96 Oxygen Delivery Method Room Air Lab Data Lab Results 04/03/25 22:49: WBC 10.6, RBC 5.69, Hgb 16.0, Hct 48.2, MCV 84.7, MCH 28.1, MCHC 33.2, RDW 13.1, Plt Count 249, MPV 9.3, Neut % (Auto) 72.9, Lymph % (Auto) 16.4, Luce % (Auto) 8.3, Eos % (Auto) 1.6, Baso % (Auto) 0.4, Neut # (Auto) 7.8, Lymph # (Auto) 1.7, Luce # (Auto) 0.9, Eos # (Auto) 0.2, Baso # (Auto) 0.0, ESR 10, Sodium 138, Potassium 4.1, Chloride 101, Carbon Dioxide 32 H, Anion Gap 9.1, BUN 17, Creatinine 1.20, Estimated Creat Clear 84, Estimated GFR 66, Est GFR ( Amer) 80, Glucose 104 H, Calcium 8.6, Total Bilirubin 0.6, AST 35, ALT 37, Alkaline Phosphatase 90, Total Creatine Kinase 170, C-Reactive Protein 28.3 H, Total Protein 7.2, Albumin 4.1, Globulin 3.1, Albumin/Globulin Ratio 1.3 04/03/25 22:49 04/03/25 22:49 Orders (Tests/Meds): ED MEDICATIONS Discontinued Medications Generic Name Dose Route Start Last Admin Trade Name Joseq PRN Reason Stop Dose Admin Doxycycline Hyclate 100 mg 04/04/25 02:08 04/04/25 02:13 Doxycycline Hycl 100 Mg Tablet PO 04/04/25 02:09 100 mg ONCE ONE Administration Iopamidol 80 ml 04/03/25 23:27 04/03/25 23:34 Iopamidol-370 (76%);100ml Bottle IV 04/03/25 23:28 80 ml ONCE ONE Administration Morphine Sulfate 4 mg 04/03/25 22:58 04/03/25 23:01 Morphine 4mg/Ml Syringe IV 04/03/25 22:59 4 mg ONCE ONE Administration Oxycodone HCl 5 mg 04/04/25 02:07 04/04/25 02:13 Oxycodone 5mg Immediate Release Tablet PO 04/04/25 02:08 5 mg ONCE ONE Administration Sodium Chloride 10 ml 04/03/25 23:27 04/03/25 23:34 Sodium Chloride 0.9% 10ml Syr (Rad Only) IV 04/03/25 23:28 10 ml ONCE ONE Administration ORDERS Category Date Time Status CT Tib/Fib RT w con Stat Cat Scan 04/03/25 22:33 Completed POCUS Point of Care (ER Only) Stat Exams 04/04/25 01:53 Ordered CBC w/Auto Diff [Complete Blood Count Auto Diff] Stat Lab 04/03/25 22:49 Completed CK [Creatine Kinase] Stat Lab 04/03/25 22:49 Completed CMP [Comprehensive Metabolic Panel] Stat Lab 04/03/25 22:49 Completed CRP [C-Reactive Protein] Stat Lab 04/03/25 22:49 Completed ESR [Erythrocyte Sedimentation Rate] Stat Lab 04/03/25 22:49 Completed Medical Decision Narrative: Sue Dennis is a 44-year-old male with a past medical history of MRSA, 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 Patient states that he got a new prosthesis for his right leg 3 weeks ago and has had some swelling to the distal stump ever since. He does state that there is a part of the prosthesis that rubs the front of his leg. He states that over the last 16 hours, he has had increasing swelling, pain and warmth to the area. He has had multiple infections in the past and wants to make sure it is not infected. He denies any fevers. On arrival, patient is hemodynamically stable, in no acute distress, afebrile, breathing comfortably on room air. Physical exam, stated above, revealed overall well- appearing male who is nontoxic appearing. He is status post right BKA. The stump site/surgical site appears to have healed well without dehiscence. He has swelling, warmth and induration to the anterior/distal aspect of the stump. This area is mildly tender. No tenderness or swelling proximal to this area. No significant erythema. Differential diagnosis includes, but is not limited to: Abscess, cellulitis, hematoma, osteomyelitis, edema, rhabdomyolysis, among others. The most morbid conditions were considered and workup was based on these. Workup in the emergency department included: CT right lower extremity with contrast, CBC with differential, CMP, ESR, CRP, lactic acid. Patient was treated with 4 mg of IV morphine. Patient's workup showed no leukocytosis, ESR normal at 10, electrolytes unremarkable nonactionable. CK normal at 170. CRP is elevated at 28.3. Patient CT imaging is pending at this time. Patient's care was handed off to the oncoming physician, Dr. Alexander, pending completion of his workup and ultimate disposition. <Josh Alexander MD - Last Filed: 04/04/25 02:35> Vital Signs: 04/03/25 21:54 04/03/25 22:00 04/03/25 22:20 Temperature 98.7 F Temperature Source Oral Pulse Rate 65 88 Pulse Rate [Right] 98 H Respiratory Rate 20 Blood Pressure 124/72 115/72 Blood Pressure [Right Arm] 115/72 Blood Pressure Mean [Right Arm] 86 Blood Pressure Source 02 Sat by Pulse Oximetry 96 95 97 Oxygen Delivery Method 04/03/25 22:30 04/03/25 23:00 04/04/25 00:00 Temperature Temperature Source Pulse Rate 79 89 83 Pulse Rate [Right] Respiratory Rate Blood Pressure 132/85 127/88 129/80 Blood Pressure [Right Arm] Blood Pressure Mean [Right Arm] Blood Pressure Source 02 Sat by Pulse Oximetry 96 95 97 Oxygen Delivery Method 04/04/25 00:30 04/04/25 02:15 Temperature 98.5 F Temperature Source Oral Pulse Rate 85 85 Pulse Rate [Right] Respiratory Rate 18 Blood Pressure 126/86 135/85 Blood Pressure [Right Arm] Blood Pressure Mean [Right Arm] Blood Pressure Source Automatic Cuff 02 Sat by Pulse Oximetry 96 Oxygen Delivery Method Room Air Lab Data Lab Results 04/03/25 22:49: WBC 10.6, RBC 5.69, Hgb 16.0, Hct 48.2, MCV 84.7, MCH 28.1, MCHC 33.2, RDW 13.1, Plt Count 249, MPV 9.3, Neut % (Auto) 72.9, Lymph % (Auto) 16.4, Luce % (Auto) 8.3, Eos % (Auto) 1.6, Baso % (Auto) 0.4, Neut # (Auto) 7.8, Lymph # (Auto) 1.7, Luce # (Auto) 0.9, Eos # (Auto) 0.2, Baso # (Auto) 0.0, ESR 10, Sodium 138, Potassium 4.1, Chloride 101, Carbon Dioxide 32 H, Anion Gap 9.1, BUN 17, Creatinine 1.20, Estimated Creat Clear 84, Estimated GFR 66, Est GFR ( Amer) 80, Glucose 104 H, Calcium 8.6, Total Bilirubin 0.6, AST 35, ALT 37, Alkaline Phosphatase 90, Total Creatine Kinase 170, C-Reactive Protein 28.3 H, Total Protein 7.2, Albumin 4.1, Globulin 3.1, Albumin/Globulin Ratio 1.3 Orders (Tests/Meds): ED MEDICATIONS Discontinued Medications Generic Name Dose Route Start Last Admin Trade Name Freq PRN Reason Stop Dose Admin Doxycycline Hyclate 100 mg 04/04/25 02:08 04/04/25 02:13 Doxycycline Hycl 100 Mg Tablet PO 04/04/25 02:09 100 mg ONCE ONE Administration Iopamidol 80 ml 04/03/25 23:27 04/03/25 23:34 Iopamidol-370 (76%);100ml Bottle IV 04/03/25 23:28 80 ml ONCE ONE Administration Morphine Sulfate 4 mg 04/03/25 22:58 04/03/25 23:01 Morphine 4mg/Ml Syringe IV 04/03/25 22:59 4 mg ONCE ONE Administration Oxycodone HCl 5 mg 04/04/25 02:07 04/04/25 02:13 Oxycodone 5mg Immediate Release Tablet PO 04/04/25 02:08 5 mg ONCE ONE Administration Sodium Chloride 10 ml 04/03/25 23:27 04/03/25 23:34 Sodium Chloride 0.9% 10ml Syr (Rad Only) IV 04/03/25 23:28 10 ml ONCE ONE Administration ORDERS Category Date Time Status CT Tib/Fib RT w con Stat Cat Scan 04/03/25 22:33 Completed POCUS Point of Care (ER Only) Stat Exams 04/04/25 01:53 Ordered CBC w/Auto Diff [Complete Blood Count Auto Diff] Stat Lab 04/03/25 22:49 Completed CK [Creatine Kinase] Stat Lab 04/03/25 22:49 Completed CMP [Comprehensive Metabolic Panel] Stat Lab 04/03/25 22:49 Completed CRP [C-Reactive Protein] Stat Lab 04/03/25 22:49 Completed ESR [Erythrocyte Sedimentation Rate] Stat Lab 04/03/25 22:49 Completed Medical Decision Narrative: Sue Dennis is a 44-year-old male with a past medical history of MRSA, 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 Patient states that he got a new prosthesis for his right leg 3 weeks ago and has had some swelling to the distal stump ever since. He does state that there is a part of the prosthesis that rubs the front of his leg. He states that over the last 16 hours, he has had increasing swelling, pain and warmth to the area. He has had multiple infections in the past and wants to make sure it is not infected. He denies any fevers. On arrival, patient is hemodynamically stable, in no acute distress, afebrile, breathing comfortably on room air. Physical exam, stated above, revealed overall well- appearing male who is nontoxic appearing. He is status post right BKA. The stump site/surgical site appears to have healed well without dehiscence. He has swelling, warmth and induration to the anterior/distal aspect of the stump. This area is mildly tender. No tenderness or swelling proximal to this area. No significant erythema. Differential diagnosis includes, but is not limited to: Abscess, cellulitis, hematoma, osteomyelitis, edema, rhabdomyolysis, among others. The most morbid conditions were considered and workup was based on these. Workup in the emergency department included: CT right lower extremity with contrast, CBC with differential, CMP, ESR, CRP, lactic acid. Patient was treated with 4 mg of IV morphine. Patient's workup showed no leukocytosis, ESR normal at 10, electrolytes unremarkable nonactionable. CK normal at 170. CRP is elevated at 28.3. Patient CT imaging is pending at this time. Patient's care was handed off to the oncoming physician, Dr. Alexander, pending completion of his workup and ultimate disposition. Catherine LAU: I assumed care of the patient at the time of handoff from the prior provider. On reassessment patient remained stable. Reports some recurrence of pain, was given oxycodone. CT imaging was independently interpreted by me, patient does have some edema. Radiology reports possible abscess distally. I performed a bedside ultrasound and could not find an obvious abscess that was amenable to incision and drainage or aspiration. There was a very small linear fluid collection near the bone that may correlate with what they saw on CT. Patient had no tenderness over that area. The skin overlying the stump is not red or indurated. Given this, it is uncertain whether patient does not fact have an infection. However, I think we should definitely treat it as if it is an infection. I discussed this with patient and he was initiated on doxycycline and discharged with prescription. He is encouraged to follow-up with his team for further assessment. Critical Care <Bismark Rowley MD - Last Filed: 04/04/25 02:11> Critical Care Time Critical Care Time: No
[2025-04-03 23:00] VITALS: BP 127/88; PULSE 89; O2SAT 95
[2025-04-03] MEDS: MORPHINE 4MG/ML SYRINGE 4 MG IV (23:01)
[2025-04-03 23:03] LABS: Hematocrit 48.2 % (42.0-52.0); Hemoglobin 16.0 g/dL (14.1-18.0); Immature Granulocytes % 0.4 %; Mean Corpuscular HGB Conc 33.2 g/dL (31.8-35.4); Mean Corpuscular Hemoglobin 28.1 pg (27.0-31.2); Mean Corpuscular Volume 84.7 fl (80-94); Nucleated Red Blood Cells % 0 %; Platelet Count 249 K/mm3 (142-424); Red Blood Count 5.69 M/mm3 (4.60-6.20); Red Cell Distribution Width-SD 40.3 fL; White Blood Count 10.6 K/mm3 (4.8-10.8)
[2025-04-03 23:09] LABS: Alanine Aminotransferase 37 U/L (12-78); Albumin Level 4.1 g/dl (3.5-5.0); Albumin/Globulin Ratio 1.3 (1.1-1.8); Alkaline Phosphatase 90 U/L (38-126); Anion Gap 9.1 mEq/L (5-15); Aspartate Amino Transferase 35 U/L (17-59); Bilirubin,Total 0.6 mg/dl (0.2-1.3); Blood Urea Nitrogen 17 mg/dl (9-20); Calcium 8.6 mg/dl (8.4-10.2); Carbon Dioxide 32 mmol/L (22.0-30.0); Chloride 101 mmol/L (98-107); Creatine Kinase 170 U/L (55-170); Creatinine Clearance Estimated 84 mL/min (50-200); Creatinine,Serum 1.20 mg/dl (0.66-1.25); Estimated Glomerular Filt Rate 66 ml/min (>60); GFR (African American) 80 ML/MIN (>60); Globulin 3.1 g/dL (1.3-3.2); Glucose 104 mg/dl (74-100); Potassium 4.1 mmoL/L (3.5-5.1); Sodium 138 mmol/L (136-145); Total Protein,Serum 7.2 g/dl (6.3-8.2)
[2025-04-03 23:14] LABS: C-Reactive Protein 28.3 mg/L (0-4)
[2025-04-03] MEDS: IOPAMIDOL-370 (76%);100ML BOTTLE 80 ML IV (23:34)
[2025-04-03] MEDS: SODIUM CHLORIDE 0.9% 10ML SYR (RAD ONLY) 10 ML IV (23:34)
[2025-04-04] VITALS: BP 129/80; PULSE 83; O2SAT 97
[2025-04-04 00:30] VITALS: BP 126/86; PULSE 85; O2SAT 96
[2025-04-04] MEDS: DOXYCYCLINE HYCL 100 MG TABLET PO (02:13)
[2025-04-04] MEDS: OXYCODONE 5MG IMMEDIATE RELEASE TABLET 5 MG PO (02:13)
[2025-04-04 02:15] VITALS: BP 135/85; PULSE 85; RESP 18; TEMP 36.9; O2SAT 98
== END 2025-04-04 02:17 | disposition home or self-care (01) ==
PROVIDERS: Student in an Organized Health Care Education/Training Program; Emergency Provider Emergency Medicine; PCP Nurse Practitioner Family
DX: L03.115 Cellulitis of right lower limb (principal); R22.41 Localized swelling, mass and lump, right lower limb; Z89.511 Acquired absence of right leg below knee; Z86.14 Personal history of Methicillin resistant Staphylococcus aureus infection
CPT/HCPCS: 73701; 80053; 82550; 85025; 85651; 86140; 96374; 99283; 99284; J2270; Q9967

== ENCOUNTER 2025-04-12 08:05 | Outpatient (RCR) | payer MEDICARE, SELFPAY ==
[2025-04-12 08:21] VITALS: BMI 42.7
[2025-04-12 09:28] LABS: Hematocrit 41.6 % (42.0-52.0); Hemoglobin 13.7 g/dL (14.1-18.0); Immature Granulocytes % 0.3 %; Mean Corpuscular HGB Conc 32.9 g/dL (31.8-35.4); Mean Corpuscular Hemoglobin 28.0 pg (27.0-31.2); Mean Corpuscular Volume 84.9 fl (80-94); Nucleated Red Blood Cells % 0 %; Platelet Count 180 K/mm3 (142-424); Red Blood Count 4.90 M/mm3 (4.60-6.20); Red Cell Distribution Width-SD 39.9 fL; White Blood Count 8.6 K/mm3 (4.8-10.8)
[2025-04-12 12:16] LABS: Alanine Aminotransferase 71 U/L (12-78); Albumin Level 3.3 g/dl (3.5-5.0); Albumin/Globulin Ratio 1.1 (1.1-1.8); Alkaline Phosphatase 120 U/L (38-126); Anion Gap 9.4 mEq/L (5-15); Aspartate Amino Transferase 52 U/L (17-59); Bilirubin,Total 0.6 mg/dl (0.2-1.3); Blood Urea Nitrogen 16 mg/dl (9-20); Calcium 8.4 mg/dl (8.4-10.2); Carbon Dioxide 30 mmol/L (22.0-30.0); Chloride 101 mmol/L (98-107); Creatine Kinase 222 U/L (55-170); Creatinine Clearance Estimated 143 mL/min (50-200); Creatinine,Serum 0.70 mg/dl (0.66-1.25); Estimated Glomerular Filt Rate 123 ml/min (>60); GFR (African American) 148 ML/MIN (>60); Globulin 2.9 g/dL (1.3-3.2); Glucose 106 mg/dl (74-100); Potassium 4.4 mmoL/L (3.5-5.1); Sodium 136 mmol/L (136-145); Total Protein,Serum 6.2 g/dl (6.3-8.2)
[2025-04-12 12:21] LABS: C-Reactive Protein 33.0 mg/L (0-4)
== END 2025-04-12 08:35 ==
LOC: INF 08:05
PROVIDERS: PCP Nurse Practitioner Family; Visit Provider Internal Medicine Infectious Disease
DX: K52.9 Noninfective gastroenteritis and colitis, unspecified (principal)
CPT/HCPCS: 80053; 82550; 85025; 85651; 86140; 96365

== ENCOUNTER 2025-04-13 10:34 | Outpatient (CLI) | payer MEDICARE, SELFPAY ==
--- OUTSIDE RECORDS SUMMARY | 2023-10-25 12:15 | XMS_ITS ---
Author Organization [facility] Address [address] [place] [address] YVON Sykes [id number] Care Team Providers Care Detasseling Crew Supervisor Name Role Phone Zeeshan Salazar Primary Care Provider Macario Burkett [phone] Allergies No Known Allergies REASON FOR VISIT check up BP Encounters Encounter Location Date Provider Diagnosis [facility] [address] [place] [address] Y[place]ON Sykes [id number] 10/25/2023 Macario Burkett Plan Of Treatment No Information Progress Notes * MITCHELLWonDOB: [birth year] (44 yo M)Acc No.[id number]:10/25/2023 Progress Notes Patient: Won SPANN Provider: Colleen Burkett M.D. :1980 A ge:43 Y S ex:Male Date:10/25/2023 Address:[address] [place] [address] Onel THACKER [id number] Pcp:Zeeshan Salazar Subjective: * Chief Complaints: * [...] alive, hypertension. M aternal Grand Mother: HBP, [place]. Brother with HBP. * Social History: C URRENT TOBACCO USE S moking Status: Patient does NOT smoke. C affeine: no. Alcohol: No. * Allergies: N .K.D.A. Objective: * Vitals: Assessment: Plan: * Treatment: * Images: Billing Information: * Visit Code: * Procedure Codes: * Electronic signature of Micaela Burkett MD on 04/13/2025 at 10:39 AM EDT Sign off status: Pending * Provider: Colleen Burkett M.D. Date: 0 10/25/2023 Generated for Nany jorgensen/Elaine/Lisbethitting on: 1 10:39 AM EDT
--- OUTSIDE RECORDS SUMMARY | 2023-12-12 05:00 | XMS_ITS ---
Author Organization Ayaka Address 1210 [facility] 36 [facility] 2C [place] [phone] Care Team Providers Care Epic Willow Specialist Name Role Phone Zeeshan Salazar Primary Care Provider [phone] Macario Burkett [phone] REASON FOR VISIT 6 Month Check Up Encounters Encounter Location Date Provider Diagnosis [place] 1210 [facility] [address] [place] [phone] 12/12/2023 Macario Burkett Plan Of Treatment No Information Progress Notes * Won MEDRANO ZeeshanDOB: [birth year] (44 yo M)Acc No.[id number]:12/12/2023 Progress Notes Patient: Won SPANN Provider: Colleen Burkett M.D. :1980 A ge:43 Y S ex:Male Date:12/12/2023 Address:[address] [place] [address] [id number] Pcp:Zeeshan Salazar Subjective: * Chief Complaints: * 1 . 6 Month Check Up. * Medical History: Objective: * Vitals: Assessment: Plan: * Treatment: * Images: Billing Information: * Visit Code: * Procedure Codes: * Electronic signature of Micaela Burkett MD on 04/13/2025 at 10:38 AM EDT Sign off status: Pending * Provider: Colleen Burkett M.D. Date: 12/12/2023 Generated for Nany jorgensen/Elaine/Pro on: 1 10:38 AM EDT
--- OUTSIDE RECORDS SUMMARY | 2025-04-04 16:10 | XMS_ITS | Encounter Summary ---
Author Organization [facility] Address [address] [place] [address] Care Team Providers Care Leaflet Or Newspaper Deliverer Name Role Phone Provider, No Known Primary Care Provider Unavail able Reason for Visit * Reason Comments Leg Swelling * Auth/Cert Specialty Diagnoses / Procedures Referred By Contlevy t Referred To Contact Diagnoses Right BKA infection Referral ID Status Reason Start Date Expiration Date Visits Re quested Visits Authorized [id number] 1 1 Encounter Details Date Type Department Care Team (Late st Contact Info) Description 04/04/2025 4:10 PM EDT - 04/11/2025 1:58 PM EDT Hospital Encounter [address] [place] [address] Mario Crowley, [address] [place] [address] Leonora Shepherd MD [address] [address] Jason Álvarez DO [address] [address] Jadyn Richardson DO [address] [address] Cellulitis of right lower extremity (Primary Dx); Below-knee amputation of right lower extremity, initial encounter; Right BKA infection Discharge Disposition: Home or Self Care Social History Tobacco Use Types Packs/Day Years Used Date Smoking Tobacco: Never Smokeless Tobacco: Never Tobacco Cessation:Counseling Given: Not Answered Alcohol Use Standard Drinks/Week Comments Not Currently 0 (1 standard drink = 0.6 oz pur e alcohol) [facility] Utilities Answer Date Recorded In the past 12 months has th e [place] Discounters, gas, oil, or water company threatened to [...] or training? Not on file Preferred Language Mongolian 04/07/2025 Sex and Gender Information Value Date [...] Risk Indicated 04/04/2025 2:[address] PM [address]T [address] Kramer rd, RN * [place] Suicide Severity Rating Scale (Screener/Recent Self-Report) Question [...] from the original note were not included. [facility] DISCHARGE SUMMARY Patient Name: [...] Date/Time Wound Culture - Swab, Leg, Right [[id number]] (Abnormal) (Susceptibility) Collected: 04/07/252106 Lab Status: Final [...] Units Date/Time FL C Arm During Surgery [[id number]] Resulted: 04/07/252137 Updated: 04/07/252137 Narrative: This procedure was auto-finalized with no dictation required. MRI Tibia Fibula Right With & Without Contrast [[id number]] Collected: 04/07/25 0938 Updated: 04/07/25 1001 Narrative: [...] Buenrostro 04/07/2025 9:58 AM EDT Workstation ID: [id number] MRI Tibia Fibula Right With & Without Contrast [[id number]] Collected: 04/04/252256 Updated: 04/04/252302 Narrative: MRI TIBIA [...] MD 04/04/2025 11:00 PM EDT Workstation ID: [id number] Pending Labs Order Current Status Fungus Culture [...] FLOMAX 1 capsule, Nightly Stop These Medications [facility] capsule doxycycline 100 MG tablet Commonly known [...] Discharge: 48 minutes Electronically signed by Rosario Hlil APRN, 04/11/25, 11:12 AM EDT. Cosigned by Jadyn Richardson DO at 04/11/2025 3:42 PM EDT Associated attestation - Jadyn Richardson DO - 04/11/2025 3:42 PM EDT I have reviewed this documentation and agree. * Omar Zavala RN - 04/10/2025 4:29 PM EDT Images from the original note were not included. Won Dennis (44 y.o. Male) Date of 1980 Social Security Number [id number] [place] [phone] Congregation Unknown Marital Status Unknown Admission Date 04/04/2025 Admission Type Emergency Admitting Provider Jadyn Richardson DO Attending Provider Jadyn Richardson DO Department, Room/Bed [address], S565/1 Discharge Date Discharge Disposition Discharge [...] Group [place] [id number] Payor Plan Address Payor Plan Phone Number Payor Plan Fax Number Effective Dates [employer] [address] [address] 08/10/2023 - None Entered [place] [address] Subscriber Name Subscriber Date Member ID WON DENNIS 1980 [id number] Emergency Contacts Ruby Engineer (Rel.) Home Phone Work Phone Mobile Phone Avril Dennis (Spouse) -- -- [phone] LewRobert (Relative) -- -- [phone] [facility] [address] Patient: ROOM: [facility] Won Dennis [address] [facility] [address] : 1980 SSN: [id number] Sex: M PCP: Provider, No Known Emergency Contact Information Name Relation Home Work Mobile Avril Dennis Spouse [phone] Other Contacts Name Relation Home Work Mobile Robert Hackett Relative [phone] INSURANCE PAYOR PLAN [employer] # SUBSCRIBER ID Primary: Secondary: MEDICARE [place] [id number] Admitting Diagnosis: 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] Order Date: Apr 09, 2025 Case Management Microphone Boom Operator Consult (Order ID: [id number]) Diagnosis: Priority: Routine Expected Date: Expiration Date: Interval: Once Count: Comments: Outpatient orders: 1. Outpatient intravenous antibiotic therapy: Daptomycin 800 mg IV daily [facility] supplied [facility] 2. Home health to perform [...] INFECTIOUS DISEASE Progress Note Won Dennis 1980 [id number] Date of Consult: 04/10/2025 Admission Date: 04/04/2025 [...] which prompted him to seek treatment at [facility]. He is known to Dr. Dean. He [...] HDS, on Heparin gtt. Currently [facility] has been asked to manage the [...] MD; Location: [facility];Service: Orthopedics; Laterality: Right; WOUND CLOSURE Right 04/08/2025 [...] Jr., MD, 20 mg at 04/09/25906 heparin 45517 units/250 mL (100 units/mL) in 0.45 % [...] flush 10 mL, 10 mL, Intravenous, PRLili, aCrlton Mead MD sodium chloride 0.9 % flush [...] Units Date/Time FL C Arm During Surgery [[id number]] Resulted: 04/07/252137 Updated: 04/07/252137 Narrative: This procedure was auto-finalized with no dictation required. MRI Tibia Fibula Right With & Without Contrast [[id number]] Collected: 04/07/25 0938 Updated: 04/07/25 1001 Narrative: [...] Chitra 04/07/2025 9:58 AM EDT Workstation ID: [id number] Impression: Recurrent Right BKA stump abscess/cellulitis- this [...] discussed his disposition with the pharmacist at [facility] today. I will sign off Outpatient orders: 1. Outpatient intravenous antibiotic therapy: Daptomycin 800 mg IV daily to be supplied by [facility] 2. Home health to perform weekly [...] Time: 04/10/251323 Signed Expand All Collapse All [facility] PROGRESS NOTE Patient Name: [...] Date/Time Wound Culture - Swab, Leg, Right [[id number]] (Abnormal) (Susceptibility) Collected: 04/07/252106 Lab Status: Final [...] Row Name 04/06/25 1143 Sit-Stand Transfer Sit-Stand [place] (Transfers) modified independence -LM Comment, (Sit-Stand Transfer) Pt stood from recliner. Not holding onto walker, pt able to pull his pants up while balancing on his one leg. -LM Row Name 04/06/25 1143 Gait/Stairs (Locomotion) [place] Level (Gait) modified independence -LM Distance in [...] Nurse Physical Therapy Education Title: PT OT [employer] SPIRITS CLERK Therapies (Done) Topic: Physical Therapy (Done) Point: [...] Description Service Date Service Provider Modifiers Qty [id number] PT EVAL LOW COMPLEXITY 3 04/06/2025 Susan Cavazos, PT GP 1 PT G-Codes Outcome Measure [...] capsule Take 2 capsules by mouth Daily. DAPTOmycin 800 mg in sodium chloride 0.9 % 50 mLIndications:Sk in and Soft Tissue Infection Infuse 800 mg into a venous catheter Daily for 4 doses. Indications: Infection of the Skin and/or Soft Tissue 04/12/2025 Eliquis 5 MG tablet tablet Take 1 [...] puffs 2 (Two) Times a Day. 03/26/2025 documented as of this encounter Progress Notes * Rosario Hill APRN - 04/10/2025 1:24 PM EDT Images from the original note were not included. [facility] PROGRESS NOTE Patient Name: [...] 7.9* 8.2* 8.4* 8.6 -- 8.0* Lab 09/26/25 1447 TOTAL PROTEIN 7.3 ALBUMIN 4.1 GLOBULIN 3.2 ALT (SGPT) 26 AST (SGOT) 25 BILIRUBIN 1.0 ALK PHOS 106 Lab 04/05/25 0018 PROTIME 15.9* INR 1.19* Brief Urine Lab Results None Microbiology Results Abnormal Procedure Component Value - Date/Time Wound Culture - Swab, Leg, Right [[id number]] (Abnormal) (Susceptibility) Collected: 04/07/252106 Lab Status: Final [...] With: Patient Rosario Hill APRN 04/10/25 * Carlton Mead MD - 04/10/2025 7:38 AM EDT Images from the original note were not included. INFECTIOUS DISEASE Progress Note Won Dennis 1980 [id number] Date of Consult: 04/10/2025 Admission Date: 04/04/2025 [...] which prompted him to seek treatment at [facility]. He is known to Dr. Dean. He [...] HDS, on Heparin gtt. Currently [facility] has been asked to manage the [...] IRRIGATION; Surgeon: Sushil Dean Jr., MD; Location: [facility];Service: Orthopedics; Laterality: Right; History reviewed. No pertinent [...] mg, Oral, Q6H PRN, 500 mg at 04/06/2535 OR acetaminophen (TYLENOL) suppository 325 mg, 325 [...] Jr., MD, 20 mg at 04/09/25906 heparin 20508 units/250 mL (100 units/mL) in 0.45 % NaCl infusion, 18 Units/kg/hr, Intravenous, Titrated, Una Perla, PharmD, Last Rate: 24.1 mL/hr at 04/10/253, 18 Units/kg/hr at 04/10/25 031 hydroCHLOROthiazide tablet 12.5 mg, 12.5 mg, Oral, Daily, Sushil Dean Jr., MD, 12.5 mg at 04/09/25 09 HYDROmorphone (DILAUDID) injection 0.5 mg, 0.5 mg, [...] flush 10 mL, 10 mL, Intravenous, PRN, Carlton Mead MD sodium [...] mL Status: Discontinued Ordering Provider: Una Perla, ToñoD 1,500 mg 333.3 mL/hr over 90 Minutes Intravenous Every 12 Hours 04/05/25 0800 04/05/25 12004/04/252004 Pharmacy to dose vancomycin Status: Discontinued Ordering Provider: Leonora Shepherd MD Not Applicable Continuous PRN 04/04/25200404/05/25120604/04/25 194 vancomycin 2750 mg/500 mL 0.9% NS IVPB ([facility]) Ordering Provider: Mario Crowley, DO 20 mg/kg ?? 134 kg over 165 Minutes Intravenous Once 04/04/25195804/04/25 23004/04/25 194 cefTRIAXone (ROCEPHIN) 2,000 mg in sodium chloride [...] Units Date/Time FL C Arm During Surgery [[id number]] Resulted: 04/07/252137 Updated: 04/07/252137 Narrative: This procedure was auto-finalized with no dictation required. MRI Tibia Fibula Right With & Without Contrast [[id number]] Collected: 04/07/25937 Updated: 04/07/25 100 Narrative: MRI TIBIA FIBULA RIGHT W WO [...] Chitra 04/07/2025 9:58 AM EDT Workstation ID: [id number] Impression: Recurrent Right BKA stump abscess/cellulitis- this [...] discussed his disposition with the pharmacist at [facility] today. I will sign off Outpatient orders: 1. Outpatient intravenous antibiotic therapy: Daptomycin 800 mg IV daily to be supplied by [facility] 2. Home health to perform weekly [...] Carlton Mead MD 04/10/2025 07:38 EDT * Larisa Hamilton, [facility] - 04/10/2025 7:17 AM EDT Pharmacy to Dose Heparin Infusion Note oWn Dennis is a 44 y.o. male receiving [...] New start -- +11 11 0600 DW LU Hernandez. Pt has Factor II mutation and needs [...] 0.24 16 -- +2 18 1999 DW RN Pump checked 04/06 1916 0.33 [...] 0.36 18 -- -- 18 0600 04/10 DW RN; pump verified 04/10 0430 0.35 18 -- -- 18 0600 04/11 DW RN, pump verified Larisa Hamilton RPH 04/10/2025 07:17 EDT * Jason Álvarez, DO - 04/09/2025 2:42 PM EDT Images from the original note were not included. [facility] PROGRESS NOTE Patient Name: [...] Date/Time Wound Culture - Swab, Leg, Right [[id number]] (Abnormal) Collected: 04/07/252106 Lab Status: Preliminary result Specimen: Swab from Leg, Right Updated: 04/09/25 09 Wound Culture Light growth (2+) Staphylococcus aureus, [...] Support Discussed With: Patient Jason Álvarez DO 04/09/25 * Larisa Hamilton [facility] - 04/09/2025 11:36 AM EDT [...] New start -- +11 11 0600 ALDEN Hernandez. 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 04/05 0500 0.30 11 -- -- 11 1200 DW LU 04/05 1215 0.17 11 1999 +3 14 2100 DW RN Pump checked 04/05 2043 0.38 14 -- -- 14 0300 Dw RN 04/06 0530 0.25 14 -- +2 16 1200 DW RN Mary 04/06 1236 0.24 16 -- +2 18 1999 DW RN Pump checked 04/06 1916 0.33 [...] 0.36 18 -- -- 18 0600 04/10 DW RN; pump verified Larisa Hamilton RPH 04/09/2025 11:35 EDT * Carlton Mead MD - 04/09/2025 8:25 AM EDT Images from the original note were not included. INFECTIOUS DISEASE Progress Note Won Dennis 1980 [id number] Date of Consult: 04/09/2025 Admission Date: 04/04/2025 [...] which prompted him to seek treatment at [facility]. He is known to Dr. Dean. He [...] HDS, on Heparin gtt. Currently [facility] has been asked to manage the [...] IRRIGATION; Surgeon: Sushil Dean Jr., MD; Location: [facility]; Service: Orthopedics; Laterality: Right; PLACEMENT OF WOUND VAC Right 04/07/2025 Procedure: WOUND VACUUM ASSISTED CLOSURE; Surgeon: Sushil Dean Jr., MD; Location: [facility]; Service: Orthopedics; Laterality: Right; History reviewed. No [...] MD, 20 mg at 04/08/25 0800 heparin 30739 units/250 mL (100 units/mL) in 0.45 % [...] Units Date/Time FL C Arm During Surgery [[id number]] Resulted: 04/07/252137 Updated: 04/07/252137 Narrative: This procedure was auto-finalized with no dictation required. MRI Tibia Fibula Right With & Without Contrast [[id number]] Collected: 04/07/25 0938 Updated: 04/07/25 1001 Narrative: [...] Buenrostro 04/07/2025 9:58 AM EDT Workstation ID: [id number] Impression: Recurrent Right BKA stump abscess/cellulitis- this [...] mg IV daily to be supplied [facility] 2. Home health to perform [...] from the original note were not included. [facility] PROGRESS NOTE Patient Name: [...] Buenrostro 04/07/2025 9:58 AM EDT Workstation ID: [id number] I have personally reviewed the therapy plans: [...] DO 04/08/25 * Larisa Hamilton [facility] - 04/08/2025 11:48 AM EDT [...] 0500 0.30 11 -- -- [address] [facility] 04/05 1215 0.17 11 1999 +3 14 [...] Larisa Hamilton RPH 04/08/2025 11:47 EDT * Carlton Mead MD - 04/08/2025 7:37 AM EDT Images from the original note were not included. INFECTIOUS DISEASE Progress Note Won Dennis 1980 [id number] Date of Consult: 04/08/2025 Admission Date: 04/04/2025 [...] which prompted him to seek treatment at [facility]. He is known to Dr. Dean. He [...] HDS, on Heparin gtt. Currently [facility] has been asked to manage the [...] IRRIGATION; Surgeon: Sushil Dean Jr., MD; [facility]; Service: Orthopedics; Laterality: Right; PLACEMENT OF WOUND VAC Right 04/07/2025 Procedure: WOUND VACUUM ASSISTED CLOSURE; Surgeon: Sushil Dean Jr., MD; [facility]; Service: Orthopedics; Laterality: Right; History [...] Dean Jr., MD, 2 puff at 04/06/25 190 Calcium Replacement - Follow Nurse / BPA Driven Protocol, , Not Applicable, PRN, Sushil Dean Jr., MD cefTRIAXone (ROCEPHIN) 2,000 mg in sodium chloride 0.9 % 100 mL MBP, 2,000 mg, Intravenous, Q24H, Sushil Dean Jr., MD, Last Rate: 200 mL/hr at 04/07/25 2329, 2,000 mg at 04/07/25 2329 clotrimazole-betamethasone (LOTRISONE) 1-0.05 % cream 1 Application, 1 Application, Topical, Q12H, Sushil Dean Jr., MD, 1 Application at 04/07/25 0952 DAPTOmycin (CUBICIN) 800 mg in sodium chloride 0.9 % 50 mL IVPB, 8 mg/kg (Adjusted), Intravenous, Q24H, Sushil Dean Jr., MD, Last Rate: 100 mL/hr at 04/07/25 0951, 800 mg at 04/07/25 0951 ethyl alcohol 62 % 2 each, 2 [...] Jr., MD, 20 mg at 04/07/25950 heparin 73693 units/250 mL (100 units/mL) in 0.45 % NaCl infusion, 18 Units/kg/hr, Intravenous, Titrated, Sushil Dean Jr., MD, Last Rate: 24.1 mL/hr at 04/07/25 2334, 18 Units/kg/hr at 334 hydroCHLOROthiazide tablet 12.5 mg, 12.5 mg, Oral, Daily, Sushil Dean Jr., MD, 12.5 mg at 04/07/25950 HYDROmorphone (DILAUDID) injection 0.5 mg, 0.5 mg, Intravenous, Q2H PRN, Sushil Dean Jr., MD,0.5 mg at 04/08/25 0615 HYDROmorphone (DILAUDID) injection 1 mg, 1 mg, Intravenous, Q15 Min PRN, 1 mg at 04/07/252 AND naloxone (NARCAN) injection 0.4 mg, 0.4 mg, Intravenous, Q5 Min PRN, Sushil Dean Jr., MD Magnesium Standard Dose Replacement - Follow Nurse / BPA Driven Protocol, , Not Applicable, PRN, Sushil Dean Jr., MD nitroglycerin (NITROSTAT) SL tablet 0.4 mg, 0.4 mg, Sublingual, Q5 Min PRN, Sushil Dean Jr., MD ondansetron ODT (ZOFRAN-ODT) disintegrating tablet 4 mg, 4 mg, Translingual, Q6H PRN, Sushil Dean Jr., MD, 4 mg at 04/06/25 1002 oxybutynin XL (DITROPAN-XL) 24 hr tablet 10 mg, 10 mg, Oral, Nightly, Sushil Dean Jr., MD, 10mg at 04/06/25 210 Pharmacy to Dose Heparin, , Not Applicable, [...] Sushil Dean Jr., MD, 0.4 mg at 04/06/252100 valsartan (DIOVAN) [...] Intravenous Every 24 Hours 04/05/25199904/16/25 0814 04/05/25 120 DAPTOmycin (CUBICIN) 800 mg in sodium chloride [...] 90 Minutes Intravenous Every 12 Hours 04/05/25 0804/05/25 12004/04/252004 Pharmacy to dose vancomycin Status: Discontinued Ordering Provider: Leonora Shepherd MD Not Applicable Continuous PRN 04/04/25200404/05/25120604/04/25 194 vancomycin 2750 mg/500 mL 0.9% NS IVPB ([facility]) Ordering Provider: Mario Crowley, DO 20 mg/kg ?? 134 kg over 165 Minutes Intravenous Once 04/04/25195804/04/25 23004/04/25 194 cefTRIAXone (ROCEPHIN) 2,000 mg in sodium chloride [...] Units Date/Time FL C Arm During Surgery [[id number]] Resulted: 04/07/252137 Updated: 04/07/252137 Narrative: This procedure was auto-finalized with no dictation required. MRI Tibia Fibula Right With & Without Contrast [[id number]] Collected: 04/07/25937 Updated: 04/07/25 100 Narrative: MRI TIBIA FIBULA RIGHT W WO [...] osteomyelitis at this time. Electronically Signed: Hugh Lainezcristy 04/07/2025 9:58 AM EDT Workstation ID: [id number] Impression: 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 (Treated by ID in [place] Dr. Harris). Dr. Torres treated him with [...] Mead MD 04/08/2025 07:37 EDT * Jason Álvarez DO - 04/07/2025 2:11 PM EDT Images from the original note were not included. [facility] PROGRESS NOTE Patient Name: [...] normal. Results Reviewed: LAB RESULTS: Lab 04/07/25 0904/06/2534004/05/2535304/05/25 0018 04/04/25 1447 WBC 8.63 10.86* 11.18* [...] 33.6* -- Lab 04/07/25 0910 04/06/25 1916 04/06/2534104/05/25 0354 04/04/25 1447 SODIUM 139 -- 138 [...] Buenrostro 04/07/2025 9:58 AM EDT Workstation ID: [id number] I have personally reviewed the therapy plans: [...] DO 04/07/25 * Larisa Hamilton [facility] - 04/07/2025 11:56 AM EDT [...] 18 -- -- 18 0800 DW RN 0910 0.30 18 -- -- 18 0600 04/08 DW RN; pump verified Larisa Hamilton RPH 04/07/2025 11:55 EDT * Carlton Mead MD - 04/07/2025 8:47 AM EDT Images from the original note were not included. INFECTIOUS DISEASE Progress Note Won Dennis 1980 [id number] Date of Consult: 04/07/2025 Admission Date: 04/04/2025 [...] which prompted him to seek treatment at [facility]. He is known to Dr. Dean. He [...] HDS, on Heparin gtt. Currently [facility] has been asked to manage the [...] puff, 2 puff, Inhalation, BID - RT, Álvarez, Jason, DO, 2 puff at 04/06/251903 Calcium Replacement - Follow Nurse / BPA Driven Protocol, , Not Applicable, PRN, Leonora Shepherd MD cefTRIAXone (ROCEPHIN) 2,000 mg in sodium chloride 0.9 % 100 mL MBP, 2,000 mg, Intravenous, Q24H, Carlton Mead MD, Last Rate: 200 mL/hr at 04/06/252100, 2,000 mg at 04/06/252100 clotrimazole-betamethasone (LOTRISONE) 1-0.05 % cream 1 Application, 1 Application, Topical, Q12H, Ayah Valentin APRN, 1 Application at 04/06/252101 DAPTOmycin (CUBICIN) 800 mg in sodium chloride 0.9 % 50 mL IVPB, 8 mg/kg (Adjusted), Intravenous, Q24H, Carlton Mead MD, Last Rate: 100 mL/hr at 04/06/25 1059, 800 mg at 04/06/25 1059 ferrous sulfate tablet 325 mg, 325 mg, Oral, BID, Leonora Shepherd MD, 325 mg at 04/06/252100 furosemide (LASIX) tablet 20 mg, 20 mg, Oral, Daily, Leoonra Shepherd MD, 20 mg at 04/06/25 09 heparin 78173 units/250 mL (100 units/mL) in 0.45 % NaCl infusion, 18 Units/kg/hr, Intravenous, Titrated, Cherri Beatty, [facility], Last Rate: 24.1 mL/hr at 04/07/25217, 18 Units/kg/hr at 04/07/25217 hydroCHLOROthiazide tablet 12.5 mg, 12.5 mg, Oral, Daily, Leonora Shepherd MD, 12.5 mg at HYDROmorphone (DILAUDID) injection 0.5 mg, 0.5 mg, [...] , Not Applicable, PRN, Leonoar Shepherd MD Potassium Replacement - Follow Nurse [...] Nightly, Leonora Shepherd MD, 0.4 mg at 09/28/25 2101 valsartan (DIOVAN) tablet 40 mg, 40 [...] With & Without Contrast - In process [[id number]] Resulted: 04/07/25828 Updated: 04/07/25828 This result has not been signed. Information might be incomplete. 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 (Treated by ID in [place] Dr. Harris). Dr. Torres treated him with [...] mg Daily 04/05/2025 -- Route: Oral heparin 18175 units/250 mL (100 units/mL) in 0.45 % [...] -- Admin Instructions: [facility] Electrolyte Replacement Protocol Algorithm to View [...] -- Admin Instructions: [facility] Electrolyte Replacement Protocol Algorithm to View [...] Dean Jr, MD 04/07/25 06:07 EDT * RogerioCherri, [facility] - 04/06/2025 1:47 PM EDT [...] 0.24 16 -- +2 18 2000 DW LU Beatty RPH 04/06/2025 13:48 EDT * Jason Álvarez DO - 04/06/2025 12:47 PM EDT Images from the original note were not included. [facility] PROGRESS NOTE Patient Name: [...] MD 04/04/2025 11:00 PM EDT Workstation ID: [id number] I have personally reviewed the therapy plans: [...] Infusions:heparin, 16 Units/kg/hr, Last Rate: 16 Units/kg/hr (09/28/25 0604) Pharmacy to Dose Heparin, PRN Meds:. [...] AM-PAC 6 Clicks Score (PT): 23 (04/06/25 2057) CODE STATUS: Code Status and Medical Interventions: CPR (Attempt to Resuscitate); Full Support Ordered at: 04/04/252047 Code Status (Patient has no pulse and is not breathing): CPR (Attempt to Resuscitate) Medical Interventions (Patient has pulse or is breathing): Full Support Level Of Support Discussed With: Patient Jason ÁlvarezDO 04/06/25 * Sushil Dean Jr., MD - [...] mg Daily 04/05/2025 -- Route: Oral heparin 43809 units/250 mL (100 units/mL) in 0.45 % [...] -- Admin Instructions: [facility] Electrolyte Replacement Protocol Algorithm to View [...] INFECTIOUS DISEASE follow up. Won Dennis 1980 [id number] Date of Consult: 04/06/2025 Admission Date: 04/04/2025 [...] which prompted him to seek treatment at [facility]. He is known to Dr. Dean. He [...] HDS, on Heparin gtt. Currently [facility] has been asked to manage the [...] Nightly, Leonora Shepherd MD, 40 mg at 04/05/252158 sennosides-docusate (PERICOLACE) 8.6-50 MG per tablet 2 [...] Application, 1 Application, Topical, Q12H, Ayah Valentin, MANAGER SKILLED, 1 Application at 04/06/25 0859 DAPTOmycin (CUBICIN) [...] MD, 20 mg at 04/06/25 0900 heparin 32351 units/250 mL (100 units/mL) in 0.45 % NaCl infusion, 18 Units/kg/hr, Intravenous, Titrated, Cherri Beatty, [facility], Last Rate: 24.1 mL/hr at 04/06/25 1420, 18 Units/kg/hr at 04/06/25 1420 hydroCHLOROthiazide tablet 12.5 mg, 12.5 mg, Oral, Daily, Leonora Shepherd MD, 12.5 mg at HYDROmorphone (DILAUDID) injection 0.5 mg, 0.5 mg, [...] , Not Applicable, Continuous PRN, Una Perla, Jasbir Phosphorus Replacement - Follow Nurse / BPA Driven Protocol, , Not Applicable, PRN, Leonora Shepherd MD Potassium Replacement - Follow Nurse / BPA Driven Protocol, , Not Applicable, PRN, Leonora Shepherd MD saccharomyces boulardii (FLORASTOR) capsule 250 mg, 250 mg, Oral, BID, Leonora Shepherd MD, 250 mgat 04/06/25858 sertraline (ZOLOFT) tablet 100 mg, 100 mg, [...] Nightly, Leonora Shepherd MD, 0.4 mg at 04/05/252158 valsartan (DIOVAN) tablet 40 mg, 40 mg, Oral, Q24H, Leonora Shepehrd MD, 40 mg at 04/06/2559 Antibiotics: Anti-Infectives (From admission, onward) Ordered Dose/Rate [...] 134 kg over 165 Minutes Intravenous Once 04/04/25195804/04/25 2307 04/04/25 194 cefTRIAXone (ROCEPHIN) 2,000 mg in sodium chloride [...] Tibia Fibula Right With & Without Contrast [[id number]] Collected: 04/04/252256 Updated: 04/04/252302 Narrative: MRI TIBIA [...] represent a small area of phlegmonous change ([id number] image 10) measuring approximately 1.6 cm which [...] MD 04/04/2025 11:00 PM EDT Workstation ID: [id number] Impression: 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 (Treated by ID in [place] Dr. Harris). Dr. Torres treated him with [...] 16:00 EDT * Cherri Beatty, [facility] - 04/05/2025 3:01 PM EDT [...] New start -- +11 11 0600 ALDEN Hernandez. 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 04/05 0500 0.30 11 -- -- 11 1200 ALDEN LEIGH 04/05 1215 0.17 11 1999 +3 14 2100 ALDEN Beatty RPH 04/05/2025 14:55 EDT * Jason Álvarez DO - 04/05/2025 12:43 PM EDT Images from the original note were not included. [facility] Medicine Services PROGRESS NOTE Patient Name: [...] MD 04/04/2025 11:00 PM EDT Workstation ID: [id number] I have personally reviewed the therapy plans: [...] AM-PAC 6 Clicks Score (PT): 21 (04/05/25 003) CODE STATUS: Code Status and Medical Interventions: CPR (Attempt to Resuscitate); Full Support Ordered at: 04/04/252047 Code Status (Patient has no pulse and is not breathing): CPR (Attempt to Resuscitate) Medical Interventions (Patient has pulse or is breathing): Full Support Level Of Support Discussed With: Patient Jason DO Preeti 04/05/25 documented in this encounter H&P Notes * Leonora Shepherd MD - 04/04/2025 8:40 PM EDT Images from the original note were not included. [facility] Medicine Services HISTORY AND PHYSICAL Patient [...] MD 04/04/2025 11:00 PM EDT Workstation ID: [id number] Assessment & Plan Assessment & Plan Won [...] 4FR PICC placed by Rhoda Bonner RN [facility], tip verified by 3CG see LDA. 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 He [...] was evaluated in the emergency department in [place], was discharged with instructions for follow-up. He [...] tablet by mouth Daily. 04/03/2025 Morning Lactobacillus-Inulin ([facility]) capsule Take 200 mg by mouth Daily. [...] MD 04/04/2025 11:00 PM EDT Workstation ID: [id number] Assessment: Right BKA infection 44-year-old male with [...] DISEASE CONSULT/INITIAL HOSPITAL VISIT Won Dennis 1980 [id number] Date of Consult: 04/05/2025 Admission Date: 04/04/2025 [...] which prompted him to seek treatment at [facility]. He is known to Dr. Dean. He [...] wound 05/09/25. HDS, on Heparin gtt. Currently [facility] has been asked to manage the antimicrobials [...] Leonora Shepherd MD, 40 mg at 04/04/25 5759 sennosides-docusate (PERICOLACE) 8.6-50 MG per tablet 2 [...] MD, 20 mg at 04/05/25 0916 heparin 34487 units/250 mL (100 units/mL) in 0.45 % NaCl infusion, 11 Units/kg/hr, Intravenous, Titrated, Una Perla, PharmD, Last Rate: 14.74 mL/hr at 04/05/25 0113, 11 Units/kg/hr at 04/05/25 011 hydroCHLOROthiazide tablet 12.5 mg, 12.5 mg, Oral, [...] Nightly, Leonora Shepherd MD, 10 mg at 04/04/25 7438 Pharmacy to Dose Heparin, , Not Applicable, Continuous PRLili, Una Perla, PharmD Pharmacy to dose vancomycin, , Not Applicable, Continuous PRN, Leonora Shepherd MD Phosphorus Replacement - Follow Nurse / BPA Driven Protocol, , Not Applicable, PRNJoao Laurie, MD Potassium Replacement - Follow Nurse / BPA Driven Protocol, , Not Applicable, PRN, Leonora Shepherd MD saccharomyces boulardii (FLORASTOR) capsule 250 mg, 250 mg, Oral, BID, Leonora Shepherd MD, 250 mgat 09/27/25 0915 sertraline (ZOLOFT) tablet 100 mg, 100 mg, Oral, Nightly, Leonora Shepherd MD, 100 mg at 04/04/252358 [COMPLETED] Insert Peripheral IV, , , Once AND sodium chloride 0.9 % flush 10 mL, 10 mL, Intravenous, PRN, Leonora Shepherd MD sodium chloride 0.9 % flush 10 mL, 10 mL, Intravenous, Q12H, Leonora Shepherd MD, 10 mL at 04/05/2516 sodium chloride 0.9 % flush 10 mL, 10 mL, Intravenous, PRN, Leonora Shepherd MD sodium chloride 0.9 % infusion 40 mL, 40 mL, Intravenous, PRN, Leonora Shepherd MD tamsulosin (FLOMAX) 24 hr capsule 0.4 mg, 0.4 mg, Oral, Nightly, Leonora Shepherd MD, 0.4 mg at 04/04/252358 valsartan (DIOVAN) tablet 40 mg, 40 mg, Oral, Q24H, Leonora Shepherd MD, 40 mg at 04/05/2515 vancomycin IVPB 1500 mg in 0.9% NaCl (Premix) 500 mL, 1,500 mg, Intravenous, Q12H, Una Perla, ToñoD, Last Rate: 333.3 mL/hr at 04/05/2516, 1,500 mg at 04/05/25915 Antibiotics: Anti-Infectives (From admission, onward) Ordered Dose/Rate Route Frequency Start Stop 04/04/252005 cefTRIAXone (ROCEPHIN) 2,000 mg in sodium chloride 0.9 % 100 mL MBP Ordering Provider: Leonora Shepherd MD 2,000 mg 200 mL/hr over 30 Minutes Intravenous Every 24 Hours 04/05/25199904/09/25195804/05/25 0031 vancomycin IVPB 1500 mg in 0.9% NaCl (Premix) 500 mL Ordering Provider: Una Perla, ToñoD 1,500 mg 333.3 mL/hr over 90 Minutes Intravenous Every 12 Hours 04/05/25 0800 04/12/25 0759 04/04/252004 Pharmacy to dose vancomycin Ordering Provider: Leonora Shepherd MD Not Applicable Continuous PRN 09/26200404/09/25200304/04/251942 vancomycin 2750 mg/500 mL 0.9% NS IVPB [...] Tibia Fibula Right With & Without Contrast [[id number]] Collected: 04/04/252256 Updated: 04/04/252302 Narrative: MRI TIBIA [...] represent a small area of phlegmonous change ([id number] image 10) measuring approximately 1.6 cm which [...] MD 04/04/2025 11:00 PM EDT Workstation ID: [id number] Impression: 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 (Treated by ID in [place] Dr. Harris). Dr. Torres treated him with [...] Flowsheet Documentation Taken 04/09/2025 0000 by Bob Rosenberg, RN Safety Promotion/Fall Prevention: assistive device/personal items within reach clutter free environment maintained fall prevention program maintained lighting adjusted nonskid shoes/slippers when out of bed room organization consistent safety round/check completed toileting scheduled Taken 04/08/2025 1943 by Bob Rosenberg, RN Safety Promotion/Fall Prevention: assistive device/personal items [...] Failure Management Recent Flowsheet Documentation Taken 04/09/2025 0000 by Bob Rosenberg RN Medication Review/Management: medications reviewed Taken 04/08/20251942 by Bob Rosenberg RN Medication Review/Management: medications reviewed Goal: Blood Pressure in Desired Range Outcome: Progressing Intervention: Maintain Blood Pressure Management Recent Flowsheet Documentation Taken 04/09/2025 0000 by Bob Rosenberg RN Medication Review/Management: medications reviewed Taken 04/08/20251942 by Bob Rosenberg RN Medication Review/Management: medications reviewed Problem: Fall Injury Risk Goal: Absence of Fall and Fall-Related Injury Outcome: Progressing Intervention: Identify and Manage Contributors Recent Flowsheet Documentation Taken 04/09/2025 0000 by Bob Rosenberg RN Medication Review/Management: medications reviewed Taken 04/08/20251942 by Bob Rosenberg RN Medication Review/Management: medications reviewed Intervention: Promote Injury-Free Environment Recent Flowsheet Documentation Taken 04/09/2025 0000 by [...] Skin Protection Recent Flowsheet Documentation Taken 04/09/2025 0000 by Bob Rosenberg RN Activity Management: activity [...] pads utilized Goal Outcome Evaluation: * Susan Cavazos PT - 04/06/2025 11:22 AM EDT Goal [...] Jr., MD - 04/08/2025 3:51 PM EDT [facility] OPERATIVE REPORT PATIENT NAME: Won Dennis DATE OF : 1980 PREOP DIAGNOSIS: Right Right below-knee amputation infection POSTOP DIAGNOSIS: Same. PROCEDURE: Right Right 25290: Secondary closure below-knee amputation SURGEON: Sushil Dean MD OPERATIVE TEAM: Behavior Interventionist: Susi Grullon RN Scrub Person: Mary Paredes Scrub Person Extra: Hortencia Toribio Other: Katt Gotti RN; Charis Neville RN ANESTHETIST: Anesthesiologist: Ulises Hoffman MD GLOVE EXAMINER: Stan Casillas CRNA Student Nurse Water Valve Repairer: Karol Albert SRNA ANESTHESIA: Choice ESTIMATED BLOOD [...] CULTURE (Canceled) Sushil Dean Jr., MD 04/08/25 3032 Description: RIGHT LEG DEEP WOUND FOR CULTURE [...] Jr., MD - 04/07/2025 9:03 PM EDT [facility], [address] [address] OPERATIVE REPORT PATIENT NAME: Won Dennis DATE OF : 1980 PREOP DIAGNOSIS: Right Right below knee amputation stump infection POSTOP DIAGNOSIS: Same. PROCEDURE: Right Right 31757: Incision and drainage of surgical site infection 03593: Debridement of skin, subcutaneous tissue, muscle 71651: Wound vacuum-assisted closure SURGEON: Sushil Dean MD OPERATIVE TEAM: Behavior Interventionist: Anum Sanchez RN Scrub Person: Bo Toribio Devion BUS OR TRUCK GARAGE MECHANIC: Anesthesiologist: Luci Alonso DO ANESTHESIA: General ESTIMATED [...] ago swellling of the area. seen at [facility] yesterday for CT and US, here for [...] this chart in the absence of a health researcher. No orders to display RADIOLOGY: [x] Radiologist's [...] 04/11/2025 1:30 PM EDT Continued Stay Note [facility] Patient Name: Won Dennis Today's Date: 04/11/2025 Admit Date: 04/04/2025 Plan: Home with outpatient infusion. Discharge Plan Row Name 04/11/25 1155 Plan Plan Home with outpatient infusion. Final Discharge Disposition Code 01 - home or self-care Final Note Patient discharging today. He is discharging home with outpatient infusion at [facility]. He has an appointment with [facility] at 8:00 am tomorrow. They will do PICC line dressing changes. DEBRA has spoke with Dena at [facility] today multiple times to get setup due to insurance issues. There is no other discharge needs at this time. He has private transport. Discharge Codes No documentation. Expected Discharge Date and Time Expected Discharge Date Expected Discharge Time Apr 11, 2025 Kathy Johnson RN * Case Management/Social Work - Omar Zavala RN - 04/10/2025 4:57 PM EDT Continued Stay Note [facility]IS[facility] Patient Name: Won Dennis Today's Date: 04/10/2025 Admit Date: 04/04/2025 Plan: Home Discharge Plan Row Name 04/10/25 1636 Plan Plan Home Patient/Family in Agreement with Plan yes Plan Comments DEBRA spoke with the patient at bedside today. Patient was going to get IV ABX at home with [facility]; however, Medicaid lapsed on 04/08. CM was unaware until this morning that Medicaid has lapsed. Patient explained that he has Medicare A and B. CM spoke with KELLEE and given themhis Medicare number [id number], she sent it to Admission. DEBRA spoke with Kerri, with [facility], and explained that he had Medicare A and B. However, it will not cover home infusion. It will be $64.00 a day out of packet. Patients can go to the Infusion center at [facility], and it will cover the cost as an outpatient. He will need to go there every day for infusion. They will be able to do the patients' PICC line dressing changes and lab work. DEBRA called Dena [facility] Outpatient infusion center they can accept patient and start him. He is known for their facility. The Facility will need to run it through his insurance first. DEBRA faxed the orders over to [facility] at [phone]. CM will follow up with them tomorrow at [facility] to make sure they received the orders. Patient is hoping for discharge tomorrow. CM will follow and updated when more is known. Final Discharge Disposition Code 01 - home or self-care Discharge Codes No documentation. Expected Discharge Date and Time Expected Discharge Date Expected Discharge Time Apr 10, 2025 Kathy E Johnson, RN * Case Management/Social Work - Omar Zavala RN - 04/09/2025 2:51 PM EDT Continued Stay Note [place] Patient Name: Won Dennis Today's Date: 04/09/2025 Admit Date: 04/04/2025 Plan: Home Discharge Plan Row Name 04/09/25 1311 Plan Plan Home Patient/Family in Agreement with Plan yes Plan Comments CM spoke with patient at bedside today. Wheelchair from [employer] is at bedside. Patient getting PICC line today for ABX therapy. Patient states that he has done ABX at home before and feels comfortable with doing them himself. Mr. Dennis is thinking that he will likely discharge tomorrow. CM is following for discharge needs. Final Discharge Disposition Code 01 - home or self-care Discharge Codes No documentation. Kathy Johnson RN * Case Management/Social Work - Omar Zavala RN - 04/07/2025 11:49 AM EDT Images from the original note were not included. Discharge Planning Assessment [place] Patient Name: Won Dennis Today's Date: 04/07/2025 [...] with family Patient/Family Anticipated Services at Transition clinical case managermicrosoft dynamics manager architect Anticipated family or friend will provide Discharge Needs Assessment Equipment Currently Used at Home glucometer;shower chair;pulse ox;bp cuff;prosthesis;crutches Equipment Needed After Discharge none Discharge Plan Row Name 04/07/25 1144 Plan Plan Home Patient/Family in Agreement with Plan yes Plan Comments CM spoke with patient at bedside today. Patient lives with and his 5 kids in [place]. 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 He has walker, cane, shower chair, and crutches. He requested a wheelchair for home. CM will order wheelchair through [employer]. He is not current with home health services. PCP is Dr. Jordan. Insurance is [employer] Medicaid [place]. Patient discharge plan is home with priavte transport. CM will follow for any discharge needs. Final Discharge Disposition Code 01 - home or self-care Continued Care and Services - Admitted Since 04/04/2025 No active coordination exists. Demographic Summary Row Name 04/07/25 1143 General Information Arrived From hospital Preferred Language Mongolian Functional Status Row Name 04/07/25 1143 Functional [...] No documentation. Patient Forms No documentation. Kathy Johnson, RN documented in this encounter Plan of [...] 3:4 0 PM EDT Right BKA infection [place] SEC ABDOMINAL WALL SUTURE EVISCERATION/DEHSN 04/08/2025 3:20 [...] CBC Auto Differential (04/11/2025 3:40 AM EDT) [facility] WBC 7.87 3.40 - 10.80 10*3/mm3 04/11/2025 4:02 AM EDT [facility] RBC 4.70 4.14 - 5.80 10*6/mm3 04/11/2025 4:02 AM EDT [facility] Hemoglobin 12.8(L) 13.0 - 17.7 g/dL 04/11/2025 4:02 AM EDT [facility] Hematocrit 40.5 37.5 - 51.0 % 04/11/2025 4:02 AM [facility] MCV 86.2 79.0 - 97.0 fL 04/11/2025 4:[facility] MCH 27.2 26.6 - 33.0 pg 04/11/2025 4:02 AM [facility] MCHC 31.6 31.5 - 35.7 g/dL 04/11/2025 4:02 AM [facility] RDW 12.9 12.3 - 15.4 % 04/11/2025 4:02 AM [facility] RDW-SD 40.5 37.0 - 54.0 fl 04/11/2025 4:02 AM [facility] MPV 9.2 6.0 - 12.0 fL 04/11/2025 4:02 AM [facility] Platelets 267 140 - 450 10*3/mm3 04/11/2025 4:02 AM [facility] Neutrophil % 59.5 42.7 - 76.0 % 04/11/2025 4:02 AM [facility] Lymphocyte % 26.3 19.6 - 45.3 % 04/11/2025 4:02 AM [facility] Monocyte % 9.3 5.0 - 12.0 % 04/11/2025 4:02 AM [facility] Eosinophil % 4.1 0.3 - 6.2 % 04/11/2025 4:02 AM [facility] Basophil % 0.4 0.0 - 1.5 % 04/11/2025 4:[facility] Immature Grans % 0.4 0.0 - 0.5 % 04/11/2025 4:02 [facility] Neutrophils, Absolute 4.69 1.70 - 7.00 10*3/mm3 04/11/2025 4:02 AM [facility] Lymphocytes, Absolute 2.07 0.70 - 3.10 10*3/mm3 04/11/2025 4:02 AM EDT [facility] Monocytes, Absolute 0.73 0.10 - 0.90 10*3/mm3 04/11/2025 4:02 AM EDT [facility] Eosinophils, Absolute 0.32 0.00 - 0.40 10*3/mm3 04/11/2025 4:02 AM EDT [facility] Basophils, Absolute 0.03 0.00 - 0.20 10*3/mm3 04/11/2025 4:02 AM EDT [facility] Immature Grans, Absolute 0.03 0.00 - 0.05 10*3/mm3 04/11/2025 4:02 AM EDT [facility] nRBC 0.0 0.0 - 0.2 /100 WBC 04/11/2025 4:02 AM EDT [facility] Blood Venipuncture / Unknown 04/11/2025 3:40 AM EDT 04/11/2025 3:59 AM EDT Sushil Dean Jr., MD LAB BLOOD ORDERABLES Fi nal Result [facility]
[address] [place] [address], * (ABNORMAL) Comprehensive Metabolic Panel (04/11/2025 3:40 AM EDT) Glucose 108(H) 65 - 99 mg/dL 04/11/2025 4:19 AM EDT [facility] BUN 12.5 6.0 - 20.0 mg/dL 04/11/2025 4:19 AM EDT [facility] Creatinine 0.68(L) 0.76 - 1.27 mg/dL 04/11/2025 4:19 AM EDT [facility] Sodium 140 136 - 145 mmol/L 04/11/2025 4:19 AM EDT [facility] Potassium 3.8 3.5 - 5.2 mmol/L 04/11/2025 4:19 AM EDT [facility] Chloride 105 98 - 107 mmol/L 04/11/2025 4:19 AM [facility] CO2 28.2 22.0 - 29.0 mmol/L 04/11/2025 4:19 AM [facility] Calcium 8.2(L) 8.6 - 10.5 mg/dL 04/11/2025 4:19 AM [facility] Total Protein 6.1 6.0 - 8.5 g/dL 04/11/2025 4:19 AM [facility] Albumin 3.1(L) 3.5 - 5.2 g/dL 04/11/2025 4:19 AM [facility] ALT (SGPT) 52(H) 1 - 41 U/L 04/11/2025 4:19 AM [facility] AST (SGOT) 40 1 - 40 U/L 04/11/2025 4:19 AM [facility] Alkaline Phosphatase 99 39 - 117 U/L 04/11/2025 4:19 AM [facility] Total Bilirubin 0.2 0.0 - 1.2 mg/dL 04/11/2025 4:19 AM [facility] Globulin 3.0 gm/dL 04/11/2025 4:19 AM [facility] Comment:Calculated Result A/G Ratio 1.0 g/dL 04/11/2025 4:19 AM [facility] BUN/Creatinine Ratio 18.4 7.0 - 25.0 04/11/2025 4:19 AM [facility] Anion Gap 6.8 5.0 - 15.0 mmol/L 04/11/2025 4:19 AM [facility] eGFR 117.5 >60.0 mL/min/1.7 3 04/11/2025 4:19 AM [facility] Blood Venipuncture / Unknown 04/11/2025 3:40 AM EDT 04/11/2025 3:56 AM [facility] - 04/11/2025 4:19 AM EDT [...] does not include race as a factor Rosario Sergio MANAGER SKILLED LAB BLOOD ORDERABLES Final Result [facility]
[address] [place] [address], * (ABNORMAL) CBC Auto Differential (04/10/2025 3:46 AM EDT) WBC 9.60 3.40 - 10.80 10*3/mm3 04/10/2025 3:56 AM EDT [facility] RBC 4.67 4.14 - 5.80 10*6/mm3 04/10/2025 3:56 AM EDT [facility] Hemoglobin 12.9(L) 13.0 - 17.7 g/dL 04/10/2025 3:56 AM EDT [facility] Hematocrit 40.1 37.5 - 51.0 % 04/10/2025 3:56 AM EDT [facility] MCV 85.9 79.0 - 97.0 fL 04/10/2025 3:56 AM EDT [facility] MCH 27.6 26.6 - 33.0 pg 04/10/2025 3:56 AM EDT [facility] MCHC 32.2 31.5 - 35.7 g/dL 04/10/2025 3:56 AM EDT [facility] RDW 12.9 12.3 - 15.4 % 04/10/2025 3:56 AM EDT [facility] RDW-SD 40.5 37.0 - 54.0 fl 04/10/2025 3:56 AM [facility] MPV 9.5 6.0 - 12.0 fL 04/10/2025 3:56 AM [facility] Platelets 227 140 - 450 10*3/mm3 04/10/2025 3:56 AM [facility] Neutrophil % 59.1 42.7 - 76.0 % 04/10/2025 3:56 [facility] Lymphocyte % 29.0 19.6 - 45.3 % 04/10/2025 3:56 AM [facility] Monocyte % 8.1 5.0 - 12.0 % 04/10/2025 3:56 AM [facility] Eosinophil % 3.2 0.3 - 6.2 % 04/10/2025 3:56 AM [facility] Basophil % 0.4 0.0 - 1.5 % 04/10/2025 3:56 AM [facility] Immature Grans % 0.2 0.0 - 0.5 % 04/10/2025 3:56 AM [facility] Neutrophils, Absolute 5.67 1.70 - 7.00 10*3/mm3 04/10/2025 3:56 AM [facility] Lymphocytes, Absolute 2.78 0.70 - 3.10 10*3/mm3 04/10/2025 3:56 AM [facility] Monocytes, Absolute 0.78 0.10 - 0.90 10*3/mm3 04/10/2025 3:56 AM [facility] Eosinophils, Absolute 0.31 0.00 - 0.40 10*3/mm3 04/10/2025 3:56 AM [facility] Basophils, Absolute 0.04 0.00 - 0.20 10*3/mm3 04/10/2025 3:56 AM [facility] Immature Grans, Absolute 0.02 0.00 - 0.05 10*3/mm3 04/10/2025 3:56 AM EDT [facility] nRBC 0.0 0.0 - 0.2 /100 WBC 04/10/2025 3:56 AM EDT [facility] Blood Venipuncture / Unknown 04/10/2025 3:46 AM EDT 04/10/2025 3:53 AM EDT us Jason Álvarez DO LAB BLOOD ORDERABLES Final Resul t [facility]
[address] [place] [address], * (ABNORMAL) Basic Metabolic Panel (04/10/2025 3:46 AM EDT) Glucose 125(H) 65 - 99 mg/dL 04/10/2025 4:20 AM EDT [facility] BUN 15.9 6.0 - 20.0 mg/dL 04/10/2025 4:20 AM EDT [facility] Creatinine 0.77 0.76 - 1.27 mg/dL 04/10/2025 4:20 AM EDT [facility] Sodium 137 136 - 145 mmol/L 04/10/2025 4:20 AM EDT [facility] Potassium 3.9 3.5 - 5.2 mmol/L 04/10/2025 4:20 AM EDT [facility] Chloride 102 98 - 107 mmol/L 04/10/2025 4:20 AM EDT [facility] CO2 26.9 22.0 - 29.0 mmol/L 04/10/2025 4:20 AM EDT [facility] Calcium 7.9(L) 8.6 - 10.5 mg/dL 04/10/2025 4:20 AM EDT [facility] BUN/Creatinine Ratio 20.6 7.0 - 25.0 04/10/2025 4:20 AM EDT [facility] Anion Gap 8.1 5.0 - 15.0 mmol/L 04/10/2025 4:20 [facility] eGFR 113.2 >60.0 mL/min/1.7 3 04/10/2025 4:20 AM EDT [facility] Blood Venipuncture / Unknown 04/10/2025 3:46 AM EDT 04/10/2025 3:52 AM EDT Narrative [facility] - 04/10/2025 4:20 AM EDT GFR [...] does not include race as a factor Jason Álvarez DO LAB BLOOD ORDERABLES Final Resul t Performing Organization Address City/[facility]/ZIP Co de Phone Number [facility]
[address] [place] [address], * Heparin Anti-Xa (04/10/2025 3:46 AM EDT) Heparin Anti-Xa (UFH) 0.35 0.30 - 0.70 IU/ml 04/10/2025 4:23 AM EDT [facility] Blood Venipuncture / Unknown 04/10/2025 3:46 AM EDT 04/10/2025 3:53 AM EDT Larisa Hamilton [facility] LAB BLOOD ORDERABLES Final R esult [facility]
[address] [place] [address], * Heparin Anti-Xa (04/09/2025 10:05 AM EDT) Heparin Anti-Xa (UFH) 0.36 0.30 - 0.70 IU/ml 04/09/2025 11:12 AM EDT [facility] Blood Venipuncture / Unknown 04/09/2025 10:05 AM EDT 04/09/2025 10:47 AM EDT Larisa Hamilton [facility] LAB BLOOD ORDERABLES Final R esult [facility]
[address] [place] [address], * (ABNORMAL) CBC Auto Differential (04/09/2025 4:18 AM EDT) Pathologist [facility] WBC 11.00(H) 3.40 - 10.80 10*3/mm3 04/09/2025 4:50 AM EDT [facility] RBC 4.70 4.14 - 5.80 10*6/mm3 04/09/2025 4:50 AM EDT [facility] Hemoglobin 13.0 13.0 - 17.7 g/dL 04/09/2025 4:50 AM EDT [facility] Hematocrit 40.4 37.5 - 51.0 % 04/09/2025 4:50 AM EDT [facility] LABORATORY MCV 86.0 79.0 - 97.0 fL 04/09/2025 4:50 AM EDT [facility] MCH 27.7 26.6 - 33.0 pg 04/09/2025 4:50 AM EDT [facility] MCHC 32.2 31.5 - 35.7 g/dL 04/09/2025 4:50 AM EDT [facility] RDW 12.8 12.3 - 15.4 % 04/09/2025 4:50 AM EDT [facility] RDW-SD 39.9 37.0 - 54.0 fl 04/09/2025 4:50 AM EDT [facility] MPV 10.0 6.0 - 12.0 fL 04/09/2025 4:50 AM [facility] Platelets 211 140 - 450 10*3/mm3 04/09/2025 4:50 AM [facility] Neutrophil % 74.8 42.7 - 76.0 % 04/09/2025 4:50 AM [facility] Lymphocyte % 15.4(L) 19.6 - 45.3 % 04/[facility] Monocyte % 8.5 5.0 - 12.0 % 04/09/2025 4:50 AM [facility] Eosinophil % 0.6 0.3 - 6.2 % 04/09/2025 4:50 AM [facility] Basophil % 0.4 0.0 - 1.5 % 04/09/2025 4:50 AM [facility] Immature Grans % 0.3 0.0 - 0.5 % 04/09/2025 4:50 AM [facility] Neutrophils, Absolute 8.23(H) 1.70 - 7.00 10*3/mm3 04/09/2025 4:50 AM [facility] Lymphocytes, Absolute 1.69 0.70 - 3.10 10*3/mm3 04/09/2025 4:50 AM [facility] Monocytes, Absolute 0.94(H) 0.10 - 0.90 10*3/mm3 04/09/2025 4:50 AM [facility] Eosinophils, Absolute 0.07 0.00 - 0.40 10*3/mm3 04/09/2025 4:50 AM [facility] Basophils, Absolute 0.04 0.00 - 0.20 10*3/mm3 04/09/2025 4:50 AM [facility] Immature Grans, Absolute 0.03 0.00 - 0.05 10*3/mm3 04/09/2025 4:50 AM [facility] nRBC 0.0 0.0 - 0.2 /100 WBC 04/09/2025 4:50 AM EDT [facility] Blood Venipuncture / Unknown 04/09/2025 4:18 AM EDT 04/09/2025 4:31 AM EDT Sushil Dean Jr., MD LAB BLOOD ORDERABLES Fi nal Result Performing Organization Address City/[facility]/ZIP Co de Phone Number [facility]
[address] [place] [address], * Heparin Anti-Xa (04/09/2025 4:18 AM EDT) Heparin Anti-Xa (UFH) 0.41 0.30 - 0.70 IU/ml 04/09/2025 4:53 AM EDT [facility] Blood Venipuncture / Unknown 04/09/2025 4:18 AM EDT 04/09/2025 4:31 AM EDT Una LundbergD LAB BLOOD ORDERABLES Final R esult Performing Organization Address City/[facility]/ZIP Co de Phone Number [facility]
[address] [place] [address], * (ABNORMAL) Basic Metabolic Panel (04/09/2025 4:18 AM EDT) Glucose 147(H) 65 - 99 mg/dL 04/09/2025 5:33 AM EDT [facility] BUN 23.0(H) 6.0 - 20.0 mg/dL 04/09/2025 5:33 AM EDT [facility] Creatinine 1.15 0.76 - 1.27 mg/dL 04/09/2025 5:33 AM EDT [facility] Sodium 135(L) 136 - 145 mmol/L 04/09/2025 5:33 AM EDT [facility] Potassium 4.2 3.5 - 5.2 mmol/L 04/09/2025 5:33 AM EDT [facility] Chloride 100 98 - 107 mmol/L 04/09/2025 5:33 AM EDT [facility] CO2 26.0 22.0 - 29.0 mmol/L 04/09/2025 5:33 AM EDT [facility] Calcium 8.2(L) 8.6 - 10.5 mg/dL 04/09/2025 5:33 AM EDT [facility] BUN/Creatinine Ratio 20.0 7.0 - 25.0 04/09/2025 5:33 AM EDT [facility] Anion Gap 9.0 5.0 - 15.0 mmol/L 04/09/2025 5:33 AM EDT [facility] eGFR 80.5 >60.0 mL/min/1.7 3 04/09/2025 5:33 AM EDT [facility] Blood Venipuncture / Unknown 04/09/2025 4:18 AM EDT 04/09/2025 4:29 AM EDT Narrative [facility] - 04/09/2025 5:33 AM [...] MD LAB BLOOD ORDERABLES Fi nal Result [facility]
[address] [place] [address], * Wound Culture - Swab, Leg, Right (04/08/2025 3:40 PM EDT) Wound Culture No growth at 3 days ALIZA 04/11/2025 10:40 AM EDT [facility] Gram Stain Few (2+) WBCs seen 04/11/2025 10:40 AM EDT [facility] Gram Stain No organisms seen 04/11/2025 10:40 AM EDT [facility] Swab Structure of right lower limb / Unknown 04/08/2025 3:40 PM EDT 04/08/2025 8:05 PM EDT Sushil Dean Jr., MD MICROBIOLOGY - GENERAL ORDERABLES Final Result Performing Organization Address City/[facility]/ZIP Co de Phone Number [facility]
[address] [place] [address], [facility]
[address] [place] [address], [place] [phone] * Anaerobic Culture - Swab, Leg, Right (04/08/2025 3:40 PM EDT) Anaerobic Culture No anaerobes isolated at 5 days ALIZA 04/13/2025 7:24 AM EDT [facility] Swab Structure of right lower limb / Unknown 04/08/2025 3:40 PM EDT 04/08/2025 8:05 PM EDT us Sushil Dean Jr., MD MICROBIOLOGY - GENERAL ORDERABLES Final Result Performing Organization Address City/[facility]/ZIP Co de Phone Number [facility]
[address] [place] [address], * Scan Slide (04/08/2025 8:41 AM EDT) RBC Morphology Normal Normal 04/08/2025 11:02 AM EDT [facility] WBC Morphology Normal Normal 04/08/2025 11:02 AM EDT [facility] Platelet Estimate Adequate Normal 04/08/2025 11:02 AM EDT [facility] Clumped Platelets Present None Seen 04/08/2025 11:02 AM EDT [facility] Blood Venipuncture / Unknown 04/08/2025 8:41 AM EDT 04/08/2025 9:10 AM EDT Una Perla PharmD LAB BLOOD ORDERABLES Final R esult [facility]
[address] [place] [address], * (ABNORMAL) CBC Auto Differential (04/08/2025 8:41 AM EDT) WBC 10.07 3.40 - 10.80 10*3/mm3 04/08/2025 11:02 AM EDT [facility] RBC 5.01 4.14 - 5.80 10*6/mm3 04/08/2025 11:02 AM EDT [facility] Hemoglobin 14.0 13.0 - 17.7 g/dL 04/08/2025 11:02 AM EDT [facility] Hematocrit 42.7 37.5 - 51.0 % 04/08/2025 11:02 AM EDT [facility] MCV 85.2 79.0 - 97.0 fL 04/08/2025 11:02 AM EDT [facility] MCH 27.9 26.6 - 33.0 pg 04/08/2025 11:02 AM EDT [facility] MCHC 32.8 31.5 - 35.7 g/dL 04/08/2025 11:02 AM EDT [facility] RDW 12.6 12.3 - 15.4 % 04/08/2025 11:02 AM T [facility] RDW-SD 38.9 37.0 - 54.0 fl 04/08/2025 11:02 AM EDT [facility] MPV 11.0 6.0 - 12.0 fL 04/08/2025 11:02 AM EDT [facility] Platelets 118(L) 140 - 450 10*3/mm3 04/08/2025 11:02 AM [facility] Neutrophil % 85.1(H) 42.7 - 76.0 % 04/08/2025 11:02 AM [facility] Lymphocyte % 9.3(L) 19.6 - 45.3 % 04/08/2025 11:02 AM [facility] Monocyte % 4.6(L) 5.0 - 12.0 % 04/08/2025 11:02 AM [facility] Eosinophil % 0.3 0.3 - 6.2 % 04/08/2025 11:02 AM [facility] Basophil % 0.2 0.0 - 1.5 % 04/08/2025 11:02 AM [facility] Immature Grans % 0.5 0.0 - 0.5 % 04/08/2025 11:02 AM [facility] Neutrophils, Absolute 8.57(H) 1.70 - 7.00 10*3/mm3 04/08/2025 11:02 AM [facility] Lymphocytes, Absolute 0.94 0.70 - 3.10 10*3/mm3 04/08/2025 11:02 AM [facility] Monocytes, Absolute 0.46 0.10 - 0.90 10*3/mm3 04/08/2025 11:02 AM [facility] Eosinophils, Absolute 0.03 0.00 - 0.40 10*3/mm3 04/08/2025 11:02 AM [facility] Basophils, Absolute 0.02 0.00 - 0.20 10*3/mm3 04/08/2025 11:02 AM [facility] Immature Grans, Absolute 0.05 0.00 - 0.05 10*3/mm3 04/08/2025 11:02 AM [facility] nRBC 0.0 0.0 - 0.2 /100 WBC 04/08/2025 11:02 AM [facility] Blood Venipuncture / Unknown 04/08/2025 8:41 AM EDT 04/08/2025 9:10 AM EDT Una Minda PharmD LAB BLOOD ORDERABLES Final R esult [facility]
[address] [place] [address], * (ABNORMAL) Basic Metabolic Panel (04/08/2025 8:41 AM EDT) Pathologist [facility] Glucose 125(H) 65 - 99 mg/dL 04/08/2025 9:51 AM EDT [facility] BUN 13.2 6.0 - 20.0 mg/dL 04/08/2025 9:51 AM EDT [facility] Creatinine 0.69(L) 0.76 - 1.27 mg/dL 04/08/2025 9:51 AM EDT [facility] Sodium 136 136 - 145 mmol/L 04/08/2025 9:51 AM EDT [facility] Potassium 4.6 3.5 - 5.2 mmol/L 04/08/2025 9:51 AM EDT [facility] Chloride 102 98 - 107 mmol/L 04/08/2025 9:51 AM EDT [facility] CO2 23.5 22.0 - 29.0 mmol/L 04/08/2025 9:51 AM EDT [facility] Calcium 8.4(L) 8.6 - 10.5 mg/dL 04/08/2025 9:51 AM EDT [facility] BUN/Creatinine Ratio 19.1 7.0 - 25.0 04/08/2025 9:51 AM EDT [facility] Anion Gap 10.5 5.0 - 15.0 mmol/L 04/08/2025 9:51 AM EDT [facility] eGFR 117.0 >60.0 mL/min/1.7 3 04/08/2025 9:51 AM EDT [facility] Blood Venipuncture / Unknown 04/08/2025 8:41 AM EDT 04/08/2025 9:09 AM EDT Narrative [facility] - 04/08/2025 9:51 AM EDT GFR [...] ORDERABLES Fi nal Result Performing Organization Address City/[facility]/ZIP Co de Phone Number [facility]
[address] [place] [address], * Heparin Anti-Xa (04/08/2025 8:41 AM EDT) Heparin Anti-Xa (UFH) 0.33 0.30 - 0.70 IU/ml 04/08/2025 9:40 AM EDT [facility] Blood Venipuncture / Unknown 04/08/2025 8:41 AM EDT 04/08/2025 9:10 AM EDT us Sushil Dean Jr., MD LAB BLOOD ORDERABLES Fi nal Result [facility]
[address] [place] [address], [place] [phone] * [place] C Arm During Surgery (04/07/2025 9:32 PM EDT) Narrative SYSTEMGENERATED, DOCUMENTATION - 04/07/2025 9:38 PM EDT This procedure was auto-finalized with no dictation required. us Sushil Dean Jr., MD IMG FLUOROSCOPY ORDERAB LES Final Result * Wound Culture - Swab, Leg, Right (04/07/2025 9:14 PM EDT) Wound Culture No growth at 3 days ALIZA 04/11/2025 10:40 AM EDT [facility] Gram Stain Occasional WBCs seen 04/11/2025 10:40 AM EDT [facility] Gram Stain No organisms seen 04/11/2025 10:40 AM EDT [facility] Swab Structure of right lower limb / Unknown Collection / Unknown 04/07/2025 9:14 PM EDT 04/08/2025 4:36 AM EDT Sushil Dean Jr., MD MICROBIOLOGY - GENERAL ORDERABLES Final Result Performing Organization Address City/[facility]/ZIP Co de Phone Number [facility]
[address] [place] [address], [facility]
[address] [place] [address], [place] [phone] * Anaerobic Culture - Swab, Leg, Right (04/07/2025 9:14 PM EDT) Anaerobic Culture No anaerobes isolated at 5 days ALIZA 04/13/2025 7:21 AM EDT [facility] Swab Structure of right lower limb / Unknown Collection / Unknown 04/07/2025 9:14 PM EDT 04/08/2025 4:36 AM EDT us Sushil Dean Jr., MD MICROBIOLOGY - GENERAL ORDERABLES Final Result [facility]
[address] [place] [address], * Anaerobic Culture - Tissue, Leg (04/07/2025 9:13 PM EDT) Anaerobic Culture No anaerobes isolated at 5 days ALIZA 04/13/2025 7:21 AM EDT [facility] Tissue Lower limb structure / Unknown Collection / Unknown 04/07/2025 9:13 PM EDT 04/08/2025 4:54 AM EDT Jason Álvarez DO MICROBIOLOGY - GENERAL ORDERABLE S Final Result Performing Organization Address [facility] Co de Phone Number [facility]
[address] [place] [address], * Tissue / Bone Culture - Tissue, Leg, Right (04/07/2025 9:13 PM EDT) Tissue Culture No growth at 3 days ALIZA 04/11/2025 10:36 AM EDT [facility] Gram Stain Rare (1+) WBCs seen 04/11/2025 10:36 AM EDT [facility] Gram Stain No organisms seen 04/11/2025 10:36 AM EDT [facility] Tissue Structure of right lower limb / Unknown 04/07/2025 9:13 PM EDT 04/08/2025 4:54 AM EDT Sushil Dean Jr., MD MICROBIOLOGY - GENERAL ORDERABLES Final Result Performing Organization Address [facility] de Phone Number [facility]
[address] [place] [address], [facility]
[address] [place] [address], * (ABNORMAL) Wound Culture - Swab, Leg, Right (04/07/2025 9:07 PM EDT) Wound Culture Light growth (2+) Staphylococcus aureus, MRSA(A) ALIZA 04/10/2025 10:38 AM EDT [facility] Comment: Methicillin resistant Staphylococcus aureus, Patient may be an isolation risk. Gram Stain Few (2+) WBCs seen 04/10/2025 10:38 AM EDT [facility] Gram Stain No organisms seen 025 10:38 AM EDT [facility] Swab Structure of right [...] GENERAL ORDERABLES Final Result Performing Organization Address City/[facility]/ZIP Co de Phone Number [facility]
[address] [place] [address], [facility] [place] [address], [place] [phone] * Anaerobic Culture - Swab, Leg, Right (04/07/2025 9:07 PM EDT) Anaerobic Culture No anaerobes isolated at 5 days ALIZA 04/13/2025 7:21 AM EDT [facility] Swab Structure of right lower limb / Unknown Collection / Unknown 04/07/2025 9:07 PM EDT 04/08/2025 4:36 AM EDT Sushil Dean Jr., MD MICROBIOLOGY - GENERAL ORDERABLES Final Result [facility]
[address] [place] [address], [place] [phone] * Heparin Anti-Xa (04/07/2025 9:10 AM EDT) Heparin Anti-Xa (UFH) 0.30 0.30 - 0.70 IU/ml 04/07/2025 10:12 AM EDT [facility] Blood Venipuncture / Unknown 04/07/2025 9:10 AM EDT 04/07/2025 9:38 AM EDT Una Perla PharmD LAB BLOOD ORDERABLES Final R esult [facility]
[address] [place] [address], * (ABNORMAL) CBC Auto Differential (04/07/2025 9:10 AM EDT) [facility] WBC 8.63 3.40 - 10.80 10*3/mm3 04/07/2025 9:50 AM EDT [facility] RBC 5.23 4.14 - 5.80 10*6/mm3 04/07/2025 9:50 AM EDT [facility] Hemoglobin 14.7 13.0 - 17.7 g/dL 04/07/2025 9:50 AM EDT [facility] Hematocrit 44.8 37.5 - 51.0 % 04/07/2025 9:50 AM EDT [facility] MCV 85.7 79.0 - 97.0 fL 04/07/2025 9:50 AM EDT [facility] MCH 28.1 26.6 - 33.0 pg 04/07/2025 9:50 AM EDT [facility] MCHC 32.8 31.5 - 35.7 g/dL 04/07/2025 9:50 AM EDT [facility] RDW 12.8 12.3 - 15.4 % 04/07/2025 9:50 AM EDT [facility] RDW-SD 39.9 37.0 - 54.0 fl 04/07/2025 9:50 AM EDT [facility] MPV 10.8 6.0 - 12.0 fL 04/07/2025 9:50 AM [facility] Platelets 149 140 - 450 10*3/mm3 04/07/2025 9:50 AM [facility] Neutrophil % 66.7 42.7 - 76.0 % 04/07/2025 9:50 AM [facility] Lymphocyte % 20.5 19.6 - 45.3 % 04/07/2025 9:50 AM [facility] Monocyte % 9.8 5.0 - 12.0 % 04/07/2025 9:50 AM [facility] Eosinophil % 2.1 0.3 - 6.2 % 04/07/2025 9:50 AM [facility] Basophil % 0.3 0.0 - 1.5 % 04/07/2025 9:50 AM [facility] Immature Grans % 0.6(H) 0.0 - 0.5 % 04/07/2025 9:50 AM [facility] Neutrophils, Absolute 5.75 1.70 - 7.00 10*3/mm3 04/07/2025 9:50 AM [facility] Lymphocytes, Absolute 1.77 0.70 - 3.10 10*3/mm3 04/07/2025 9:50 AM [facility] Monocytes, Absolute 0.85 0.10 - 0.90 10*3/mm3 04/07/2025 9:50 AM [facility] Eosinophils, Absolute 0.18 0.00 - 0.40 10*3/mm3 04/07/2025 9:50 AM [facility] Basophils, Absolute 0.03 0.00 - 0.20 10*3/mm3 04/07/2025 9:50 AM [facility] Immature Grans, Absolute 0.05 0.00 - 0.05 10*3/mm3 04/07/2025 9:50 AM [facility] nRBC 0.0 0.0 - 0.2 /100 WBC 04/07/2025 9:50 AM [facility] Blood Venipuncture / Unknown 04/07/2025 9:10 AM EDT 04/07/2025 9:38 AM EDT Jason Álvarez DO LAB BLOOD ORDERABLES Final Resul t [facility]
[address] [place] [address], * (ABNORMAL) Basic Metabolic Panel (04/07/2025 9:10 AM EDT) Glucose 112(H) 65 - 99 mg/dL 04/07/2025 10:19 AM EDT [facility] BUN 13.1 6.0 - 20.0 mg/dL 04/07/2025 10:19 AM EDT [facility] Creatinine 0.77 0.76 - 1.27 mg/dL 04/07/2025 10:19 AM EDT [facility] Sodium 139 136 - 145 mmol/L 04/07/2025 10:19 AM EDT [facility] Potassium 4.2 3.5 - 5.2 mmol/L 04/07/2025 10:19 AM EDT [facility] Comment:Specimen hemolyzed. Result may be falsely elevated. Chloride 105 98 - 107 mmol/L 04/07/2025 10:19 AM EDT [facility] CO2 24.8 22.0 - 29.0 mmol/L 04/07/2025 10:19 AM EDT [facility] Calcium 8.6 8.6 - 10.5 mg/dL 04/07/2025 10:19 AM EDT [facility] BUN/Creatinine Ratio 17.0 7.0 - 25.0 04/07/2025 10:19 AM EDT [facility] Anion Gap 9.2 5.0 - 15.0 mmol/L 04/07/2025 10:19 AM EDT [facility] eGFR 113.2 >60.0 mL/min/1.7 3 04/07/2025 10:19 AM EDT [facility] Blood Venipuncture / Unknown 04/07/2025 9:10 AM EDT 04/07/2025 9:38 AM EDT Narrative [facility] - 04/07/2025 10:19 AM [...] DO LAB BLOOD ORDERABLES Final Resul t [facility]
[address] [place] [address], * MRI Tibia Fibula Right With & [...] [place] 04/07/2025 9:58 AM EDT Workstation ID: [id number] Narrative 04/07/2025 9:58 AM EDT MRI TIBIA [...] [place] 04/07/2025 9:58 AM EDT Workstation ID: [id number] Sushil Dean Jr., MD IMG MRI ORDERABLES Mary Beth l Result * Heparin Anti-Xa (04/07/2025 1:42 AM EDT) Heparin Anti-Xa (UFH) 0.38 0.30 - 0.70 IU/ml 04/07/2025 2:14 AM EDT [facility] Blood Venipuncture / Unknown 04/07/2025 1:42 AM EDT 04/07/2025 1:54 AM EDT Chelsie Turpin [facility] LAB BLOOD ORDERABLES Final R esult [facility]
[address] [place] [address], * Heparin Anti-Xa (04/06/2025 7:16 PM EDT) Heparin Anti-Xa (UFH) 0.33 0.30 - 0.70 IU/ml 04/06/2025 7:50 PM EDT [facility] Blood Venipuncture / Unknown 04/06/2025 7:16 PM EDT 04/06/2025 7:35 PM EDT Cherri Rogerio [facility] LAB BLOOD ORDERABLES Final Res ult Performing Organization Address City/[facility]/ZIP Co de Phone Number [facility]
[address] [place] [address], * Potassium (04/06/2025 7:16 PM EDT) Potassium 4.0 3.5 - 5.2 mmol/L 04/06/2025 7:53 PM EDT [facility] Blood Venipuncture / Unknown 04/06/2025 7:16 PM EDT 04/06/2025 7:35 PM EDT Jason Álvarez DO LAB BLOOD ORDERABLES Final Resul t Performing Organization Address [facility] Co de Phone Number [facility]
[address] [place] [address], * (ABNORMAL) Heparin Anti-Xa (04/06/2025 12:36 PM EDT) Heparin Anti-Xa (UFH) 0.24(L) 0.30 - 0.70 IU/ml 04/06/2025 1:23 PM EDT [facility] Blood Venipuncture / Unknown 04/06/2025 12:36 PM EDT 04/06/2025 1:07 PM EDT Una Perla PharmD LAB BLOOD ORDERABLES Final R esult Performing Organization Address City/[facility]/ZIP Co de Phone Number [facility]
[address] [place] [address], * (ABNORMAL) Heparin Anti-Xa (04/06/2025 3:42 AM EDT) Heparin Anti-Xa (UFH) 0.25(L) 0.30 - 0.70 IU/ml 04/06/2025 5:30 AM EDT [facility] Blood Venipuncture / Unknown 04/06/2025 3:42 AM EDT 04/06/2025 4:59 AM EDT us Chelsie Turpin [facility] LAB BLOOD ORDERABLES Final R esult [facility]
[address] [place] [address], * (ABNORMAL) Basic Metabolic Panel (04/06/2025 3:42 AM EDT) Glucose 94 65 - 99 mg/dL 04/06/2025 5:59 AM EDT [facility] BUN 12.8 6.0 - 20.0 mg/dL 04/06/2025 5:59 AM EDT [facility] Creatinine 0.80 0.76 - 1.27 mg/dL 04/06/2025 5:59 AM EDT [facility] Sodium 138 136 - 145 mmol/L 04/06/2025 5:59 AM EDT [facility] Potassium 3.6 3.5 - 5.2 mmol/L 04/06/2025 5:59 AM EDT [facility] Chloride 103 98 - 107 mmol/L 04/06/2025 5:59 AM EDT [facility] CO2 24.2 22.0 - 29.0 mmol/L 04/06/2025 5:59 AM EDT [facility] Calcium 8.0(L) 8.6 - 10.5 mg/dL 04/06/2025 5:59 AM EDT [facility] BUN/Creatinine Ratio 16.0 7.0 - 25.0 04/06/2025 5:59 AM EDT [facility] Anion Gap 10.8 5.0 - 15.0 mmol/L 04/06/2025 5:59 AM EDT [facility] eGFR 111.9 >60.0 mL/min/1.7 3 04/06/2025 5:59 AM EDT [facility] Blood Venipuncture / Unknown 04/06/2025 3:42 AM EDT 04/06/2025 5:20 AM EDT [facility] - 04/06/2025 5:59 AM [...] DO LAB BLOOD ORDERABLES Final Resul t [facility]
[address] [place] [address], * (ABNORMAL) CBC Auto Differential (04/06/2025 3:41 AM EDT) WBC 10.86(H) 3.40 - 10.80 10*3/mm3 04/06/2025 5:04 AM EDT [facility] RBC 5.08 4.14 - 5.80 10*6/mm3 04/06/2025 5:04 AM EDT [facility] Hemoglobin 13.9 13.0 - 17.7 g/dL 04/06/2025 5:04 AM EDT [facility] Hematocrit 43.7 37.5 - 51.0 % 04/06/2025 5:04 AM EDT [facility] MCV 86.0 79.0 - 97.0 fL 04/06/2025 5:04 AM EDT [facility] MCH 27.4 26.6 - 33.0 pg 04/06/2025 5:04 AM EDT [facility] MCHC 31.8 31.5 - 35.7 g/dL 04/06/2025 5:04 AM [facility] RDW 12.8 12.3 - 15.4 % 04/06/2025 5:04 AM [facility] RDW-SD 40.0 37.0 - 54.0 fl 04/06/2025 5:04 AM [facility] MPV 11.7 6.0 - 12.0 fL 04/06/2025 5:04 AM [facility] Platelets 115(L) 140 - 450 10*3/mm3 04/06/2025 5:04 AM [facility] Neutrophil % 65.3 42.7 - 76.0 % 04/06/2025 5:04 AM [facility] Lymphocyte % 20.5 19.6 - 45.3 % 04/06/2025 5:04 AM [facility] Monocyte % 11.8 5.0 - 12.0 % 04/06/2025 5:04 AM [facility] Eosinophil % 1.8 0.3 - 6.2 % 04/06/2025 5:04 AM [facility] Basophil % 0.3 0.0 - 1.5 % 04/06/2025 5:04 AM [facility] Immature Grans % 0.3 0.0 - 0.5 % 04/06/2025 5:04 AM [facility] Neutrophils, Absolute 7.09(H) 1.70 - 7.00 10*3/mm3 04/06/2025 5:04 AM [facility] Lymphocytes, Absolute 2.23 0.70 - 3.10 10*3/mm3 04/06/2025 5:04 AM [facility] Monocytes, Absolute 1.28(H) 0.10 - 0.90 10*3/mm3 04/06/2025 5:04 AM [facility] Eosinophils, Absolute 0.20 0.00 - 0.40 10*3/mm3 04/06/2025 5:04 AM [facility] Basophils, Absolute 0.03 0.00 - 0.20 10*3/mm3 04/06/2025 5:04 AM EDT [facility] Immature Grans, Absolute 0.03 0.00 - 0.05 10*3/mm3 04/06/2025 5:04 AM EDT [facility] nRBC 0.0 0.0 - 0.2 /100 WBC 04/06/2025 5:04 AM EDT [facility] Blood Venipuncture / Unknown 04/06/2025 3:41 AM EDT 04/06/2025 4:58 AM EDT Jason Álvarez DO LAB BLOOD ORDERABLES Final Resul t Performing Organization Address City/[facility]/ZIP Co de Phone Number [facility]
[address] [place] [address], * Heparin Anti-Xa (04/05/2025 8:43 PM EDT) Heparin Anti-Xa (UFH) 0.38 0.30 - 0.70 IU/ml 04/05/2025 9:09 PM EDT [facility] Blood Venipuncture / Unknown 04/05/2025 8:43 PM EDT 04/05/2025 8:55 PM EDT Cherri Beatty [facility] LAB BLOOD ORDERABLES Final Res ult [facility]
[address] [place] [address], [place] [phone] * CK (04/05/2025 12:15 PM EDT) Creatine Kinase 140 20 - 200 U/L 04/05/2025 1:31 PM EDT [facility] Blood Venipuncture / Unknown 04/05/2025 12:15 PM EDT 04/05/2025 1:03 PM EDT Carlton Mead MD LAB BLOOD ORDERABLES Final R esult Performing Organization Address City/[facility]/ZIP Co de Phone Number [facility]
[address] [place] [address], * (ABNORMAL) Heparin Anti-Xa (04/05/2025 12:15 PM EDT) Heparin Anti-Xa (UFH) 0.17(L) 0.30 - 0.70 IU/ml 04/05/2025 1:21 PM EDT [facility] Blood Venipuncture / Unknown 04/05/2025 12:15 PM EDT 04/05/2025 1:04 PM EDT Una LundbergD LAB BLOOD ORDERABLES Final R esult Performing Organization Address [facility] de Phone Number [facility]
[address] [place] [address], * (ABNORMAL) aPTT (04/05/2025 3:54 AM EDT) PTT 35.3(L) 60.0 - 90.0 seconds 04/05/2025 4:31 AM EDT [facility] Blood Venipuncture / Unknown 04/05/2025 3:54 AM EDT 04/05/2025 4:15 AM EDT Narrative [facility] - 04/05/2025 4:31 AM EDT PTT = The equivalent PTT values for the therapeutic range of heparin levels at 0.3 to 0.5 U/ml are 60 to 70 seconds. Una Perla PharmD LAB BLOOD ORDERABLES Final R esult Performing Organization Address City/[facility] Co de Phone Number [facility]
[address] [place] [address], * Heparin Anti-Xa (04/05/2025 3:54 AM EDT) Heparin Anti-Xa (UFH) 0.30 0.30 - 0.70 IU/ml 04/05/2025 4:32 AM EDT [facility] Blood Venipuncture / Unknown 04/05/2025 3:54 AM EDT 04/05/2025 4:15 AM EDT Una Perla PharmD LAB BLOOD ORDERABLES Final R esult [facility]
[address] [place] [address], * (ABNORMAL) CBC Auto Differential (04/05/2025 3:54 AM EDT) Pathologist [facility] WBC 11.18(H) 3.40 - 10.80 10*3/mm3 04/05/2025 4:20 AM EDT [facility] RBC 5.00 4.14 - 5.80 10*6/mm3 04/05/2025 4:20 AM EDT [facility] Hemoglobin 13.9 13.0 - 17.7 g/dL 04/05/2025 4:20 AM EDT [facility] Hematocrit 42.4 37.5 - 51.0 % 04/05/2025 4:20 AM EDT [facility] MCV 84.8 79.0 - 97.0 fL 04/05/2025 4:20 AM EDT [facility] MCH 27.8 26.6 - 33.0 pg 04/05/2025 4:20 AM EDT [facility] MCHC 32.8 31.5 - 35.7 g/dL 04/05/2025 4:20 AM EDT [facility] RDW 12.9 12.3 - 15.4 % 04/05/2025 4:20 AM EDT [facility] RDW-SD 39.7 37.0 - 54.0 fl 04/05/2025 4:20 AM [facility] MPV 10.2 6.0 - 12.0 fL 04/05/2025 4:20 AM [facility] Platelets 160 140 - 450 10*3/mm3 04/05/2025 4:20 AM [facility] Neutrophil % 73.5 42.7 - 76.0 % 04/05/2025 4:20 AM [facility] Lymphocyte % 14.0(L) 19.6 - 45.3 % 04/05/2025 4:20 AM [facility] Monocyte % 11.0 5.0 - 12.0 % 04/05/2025 4:20 AM [facility] Eosinophil % 0.8 0.3 - 6.2 % 04/05/2025 4:20 AM [facility] Basophil % 0.3 0.0 - 1.5 % 04/05/2025 4:20 AM [facility] Immature Grans % 0.4 0.0 - 0.5 % 04/05/2025 4:20 AM [facility] Neutrophils, Absolute 8.23(H) 1.70 - 7.00 10*3/mm3 04/05/2025 4:20 AM [facility] Lymphocytes, Absolute 1.56 0.70 - 3.10 10*3/mm3 04/05/2025 4:20 AM [facility] Monocytes, Absolute 1.23(H) 0.10 - 0.90 10*3/mm3 04/05/2025 4:20 AM [facility] Eosinophils, Absolute 0.09 0.00 - 0.40 10*3/mm3 04/05/2025 4:20 AM [facility] Basophils, Absolute 0.03 0.00 - 0.20 10*3/mm3 04/05/2025 4:20 AM [facility] Immature Grans, Absolute 0.04 0.00 - 0.05 10*3/mm3 04/05/2025 4:20 AM [facility] nRBC 0.0 0.0 - 0.2 /100 WBC 04/05/2025 4:20 AM EDT [facility] Blood Venipuncture / Unknown 04/05/2025 3:54 AM EDT 04/05/2025 4:16 AM EDT Una Perla PharmD LAB BLOOD ORDERABLES Final R esult [facility]
[address] [place] [address], * (ABNORMAL) Basic Metabolic Panel (04/05/2025 3:54 AM EDT) Glucose 152(H) 65 - 99 mg/dL 04/05/2025 4:40 AM EDT [facility] BUN 17.3 6.0 - 20.0 mg/dL 04/05/2025 4:40 AM EDT [facility] Creatinine 0.92 0.76 - 1.27 mg/dL 04/05/2025 4:40 AM EDT [facility] Sodium 136 136 - 145 mmol/L 04/05/2025 4:40 AM EDT [facility] Potassium 3.9 3.5 - 5.2 mmol/L 04/05/2025 4:40 AM EDT [facility] Chloride 103 98 - 107 mmol/L 04/05/2025 4:40 AM EDT [facility] CO2 24.0 22.0 - 29.0 mmol/L 04/05/2025 4:40 AM EDT [facility] Calcium 7.8(L) 8.6 - 10.5 mg/dL 04/05/2025 4:40 AM EDT [facility] BUN/Creatinine Ratio 18.8 7.0 - 25.0 04/05/2025 4:40 AM EDT [facility] Anion Gap 9.0 5.0 - 15.0 mmol/L 04/05/2025 4:40 AM EDT [facility] eGFR 105.2 >60.0 mL/min/1.7 3 04/05/2025 4:40 AM EDT [facility] Blood Venipuncture / Unknown 04/05/2025 3:54 AM EDT 04/05/2025 4:15 AM EDT Narrative [facility] - 04/05/2025 4:40 AM EDT GFR [...] does not include race as a factor Leonora Shepherd MD LAB BLOOD ORDERABLES Final Re sult Performing Organization Address City/[facility]/ZIP Co de Phone Number [facility]
[address] [place] [address], * (ABNORMAL) aPTT (04/05/2025 12:18 AM EDT) PTT 33.6(L) 60.0 - 90.0 seconds 04/05/2025 12:53 AM EDT [facility] Blood Venipuncture / Unknown 04/05/2025 12:18 AM EDT 04/05/2025 12:37 AM EDT Narrative [facility] - 04/05/2025 12:53 AM EDT PTT = The equivalent PTT values for the therapeutic range of heparin levels at 0.3 to 0.5 U/ml are 60 to 70 seconds. Una LundbergD LAB BLOOD ORDERABLES Final R esult Performing Organization Address [facility]/ZIP Co de Phone Number [facility]
[address] [place] [address], * (ABNORMAL) Protime-INR (04/05/2025 12:18 AM EDT) Protime 15.9(H) 12.2 - 15.3 Seconds 04/05/2025 12:53 AM EDT [facility] INR 1.19(H) 0.89 - 1.12 04/05/2025 12:53 AM EDT [facility] Blood Venipuncture / Unknown 04/05/2025 12:18 AM EDT 04/05/2025 12:37 AM EDT Una Minda 3FunnelD LAB BLOOD ORDERABLES Final R esult Performing Organization Address City/[facility]/ZIP Co de Phone Number [facility]
[address] [place] [address], * Heparin Anti-Xa (04/05/2025 12:18 AM EDT) Pathologist [facility] Heparin Anti-Xa (UFH) 0.39 0.30 - 0.70 IU/ml 04/05/2025 12:54 AM EDT [facility] Blood Venipuncture / Unknown 04/05/2025 12:18 AM EDT 04/05/2025 12:37 AM EDT Una Perla 3FunnelD LAB BLOOD ORDERABLES Final R esult [facility]
[address] [place] [address], * MRI Tibia Fibula Right With & [...] MD 04/04/2025 11:00 PM EDT Workstation ID: [id number] Narrative 04/04/2025 11:00 PM EDT MRI TIBIA [...] MD 04/04/2025 11:00 PM EDT Workstation ID: [id number] Leonora Shepherd MD IMG MRI ORDERABLES Final Resu lt * POC Creatinine (04/04/2025 2:49 PM EDT) Pathologist [facility] Creatinine 1.10 0.60 - 1.30 mg/dL 04/07/2025 7:14 PM EDT [facility] Comment:Serial Number: [id number]: [id number] Venous Blood 04/04/2025 2:49 PM EDT 04/07/2025 7:14 PM EDT Jason Álvarez DO POINT OF CARE TEST ORDERABLES Fi nal Result [facility]
[address] [place] [address], * (ABNORMAL) CBC Auto Differential (04/04/2025 2:47 PM EDT) WBC 12.72(H) 3.40 - 10.80 10*3/mm3 04/04/2025 2:56 PM EDT [facility] RBC 5.64 4.14 - 5.80 10*6/mm3 04/04/2025 2:56 PM EDT [facility] Hemoglobin 15.3 13.0 - 17.7 g/dL 04/04/2025 2:56 PM EDT [facility] Hematocrit 47.9 37.5 - 51.0 % 04/04/2025 2:56 PM EDT [facility] MCV 84.9 79.0 - 97.0 fL 04/04/2025 2:56 PM EDT [facility] MCH 27.1 26.6 - 33.0 pg 04/04/2025 2:56 PM EDT [facility] MCHC 31.9 31.5 - 35.7 g/dL 04/04/2025 2:56 PM EDT [facility] RDW 13.1 12.3 - 15.4 % 04/04/2025 2:56 PM EDT [facility] RDW-SD 40.3 37.0 - 54.0 fl 04/04/2025 2:56 PM EDT [facility] MPV 9.4 6.0 - 12.0 fL 04/04/2025 2:56 PM EDT [facility] Platelets 232 140 - 450 10*3/mm3 04/04/2025 2:56 PM EDT [facility] Neutrophil % 74.9 42.7 - 76.0 % 04/04/2025 2:56 PM EDT [facility] Lymphocyte % 13.1(L) 19.6 - 45.3 % 04/04/2025 2:56 PM EDT [facility] Monocyte % 11.2 5.0 - 12.0 % 04/04/2025 2:56 PM EDT [facility] Eosinophil % 0.4 0.3 - 6.2 % 04/04/2025 2:56 PM EDT [facility] Basophil % 0.2 0.0 - 1.5 % 04/04/2025 2:56 PM EDT [facility] Immature Grans % 0.2 0.0 - 0.5 % 04/04/2025 2:56 PM EDT [facility] Neutrophils, Absolute 9.52(H) 1.70 - 7.00 10*3/mm3 04/04/2025 2:56 PM EDT [facility] Lymphocytes, Absolute 1.66 0.70 - 3.10 10*3/mm3 04/04/2025 2:56 PM EDT [facility] Monocytes, Absolute 1.43(H) 0.10 - 0.90 10*3/mm3 04/04/2025 2:56 PM EDT [facility] Eosinophils, Absolute 0.05 0.00 - 0.40 10*3/mm3 04/04/2025 2:56 PM EDT [facility] Basophils, Absolute 0.03 0.00 - 0.20 10*3/mm3 04/04/2025 2:56 PM EDT [facility] Immature Grans, Absolute 0.03 0.00 - 0.05 10*3/mm3 04/04/2025 2:56 PM EDT [facility] nRBC 0.0 0.0 - 0.2 /100 WBC 04/04/2025 2:56 PM EDT [facility] Blood Venipuncture / Unknown 04/04/2025 2:47 PM EDT 04/04/2025 2:52 PM EDT us Mario Crowley DO LAB BLOOD ORDERABLES Fin al Result [facility]
[address] [place] [address], * (ABNORMAL) C-reactive Protein (04/04/2025 2:47 PM EDT) [facility] C-Reactive Protein 8.57(H) 0.00 - 0.50 mg/dL 04/04/2025 3:26 PM EDT [facility] Blood Venipuncture / Unknown 04/04/2025 2:47 PM EDT 04/04/2025 2:52 PM EDT [facility] ORDERAB[facility] Fin al Result Performing Organization Address [facility] Co de Phone Number [facility]
[address] [place] [address], * (ABNORMAL) Sedimentation Rate (04/04/2025 2:47 PM EDT) Pathologist [facility] Sed Rate 51(H) 0 - 15 mm/hr 04/04/2025 3:06 PM EDT [facility] Blood Venipuncture / Unknown 04/04/2025 2:47 PM EDT 04/04/2025 2:52 PM EDT Mario Ortiz [facility] LAB BLOOD ORDERABLES Fin al Result Performing Organization Address [facility] de Phone Number [facility]
[address] [place] [address], * Comprehensive Metabolic Panel (04/04/2025 2:47 PM EDT) [facility] Glucose 90 65 - 99 mg/dL 04/04/2025 3:26 PM EDT [facility] BUN 18.3 6.0 - 20.0 mg/dL 04/04/2025 3:26 PM EDT [facility] Creatinine 0.94 0.76 - 1.27 mg/dL 04/04/2025 3:26 PM EDT [facility] Sodium 136 136 - 145 mmol/L 04/04/2025 3:26 PM EDT [facility] Potassium 3.8 3.5 - 5.2 mmol/L 04/04/2025 3:26 PM EDT [facility] Chloride 100 98 - 107 mmol/L 04/04/2025 3:26 PM EDT [facility] CO2 25.3 22.0 - 29.0 mmol/L 04/04/2025 3:[facility] Calcium 8.6 8.6 - 10.5 mg/dL 04/04/2025 3:26 PM EDT [facility] Total Protein 7.3 6.0 - 8.5 g/dL 04/04/2025 3:26 PM T [facility] Albumin 4.1 3.5 - 5.2 g/dL 04/04/2025 3:26 PM EDT [facility] ALT (SGPT) 26 1 - 41 U/L 04/04/2025 3:26 PM EDT [facility] AST (SGOT) 25 1 - 40 U/L 04/04/2025 3:26 PM EDT [facility] Alkaline Phosphatase 106 39 - 117 U/L 04/04/2025 3:26 PM T [facility] Total Bilirubin 1.0 0.0 - 1.2 mg/dL 04/04/2025 3:26 PM EDT [facility] Globulin 3.2 gm/dL 04/04/2025 3:26 PM T [facility] Comment:Calculated Result A/G Ratio 1.3 g/dL 04/04/2025 3:26 PM [facility] BUN/Creatinine Ratio 19.5 7.0 - 25.0 04/04/2025 3:26 PM [facility] Anion Gap 10.7 5.0 - 15.0 mmol/L 04/04/2025 3:26 PM T [facility] eGFR 102.5 >60.0 mL/min/1.7 3 04/04/2025 3:26 PM T [facility] Blood Venipuncture / Unknown 04/04/2025 2:47 PM EDT 04/04/2025 2:52 PM EDT [facility] - 04/04/2025 3:26 PM EDT GFR [...] DO LAB BLOOD ORDERABLES Fin al Result [facility]
[address] [place] [id number], documented in this encounter Visit Diagnoses Diagnosis [...] Pain, Headache, Fever, Starting on Mon04/04/25 at 2007, If given for fever, use fever parameter: [...] Times Daily - RT, First dose on 04/06/25 at 1345, Include Respiratory Treatment Education (SP) [...] Minutes, Every 24 Hours, First dose on Mon25 at 2000, For 11 doses, LR should [...] Hours, First dose (after last reorder) on [place] 04/06/25 at 1000, For 10 days, Caution: [...] 10 mL, Intravenous, Once in Imaging, On 04/07/25 at 0930, For 1 dose, Administer undiluted [...] 04/05/2025 3:33 PM EDT 2,000 Units heparin 92717 units/250 mL (100 units/mL) in 0.45 % [...] BPA Driven Protocol [facility] Electrolyte Replacement Protocol Algorithm to View [...] LU) 100 (Given - Provider: Marguerite Wakefield, LU) atorvastatin (LIPITOR) tablet 40 mg 40 mg, Oral, Nightly, First dose on 04/04/25 at 2100, Avoid grapefruit juice. 2026 (Given - Provider: Alberto Dillon, RN) 2030 (Given - Provider: Alberto Dillon, LU) budesonide-formoterol (SYMBICORT) 160-4.5 MCG/ACT inhaler 2 puff 2 puff, Inhalation, 2 Times Daily - RT, First dose on 04/06/25 at 1345, Include Respiratory Treatment Education (SP) Shake well. Rinse mouth after use, do not swallow water. Send aerosols to pharmacy in ziplock bag for proper disposal. 0831 (Given - Provider: Amber Salazar, KELL)1943 (Given - Provider: Anahy Marcelino, KELL)2129 (Canceled Entry - Provider: Anahy Marcelino RRT - Comment: previously given) 0837 (Given - Provider: Amber Salazar, AQUATICS INSTRUCTOR)2006 (Given - Provider: Loree Reese RRT)2129 (Canceled Entry - Provider: Loree Hugh, AQUATICS INSTRUCTOR) 1037 (Given - Provider: Leonora Chen, KELL) [...] Infection 2026 (New Bag - Provider: Alberto Dillon, LU) clotrimazole-betamethason e (LOTRISONE) 1-0.05 % cream 1 [...] (New Bag - Provider: Shirley Hart RN) 0907 (New Bag - Provider: Shirley Hart RN) 1002 (New Bag - Provider: Marguerite Wakefield RN) ethyl alcohol 62 % 2 each [...] upset occurs. 906 (Given - Provider: Shirley Hart, LU)2026 (Given - Provider: Alberto Dillon, RN) 905 (Given - Provider: Shirley Hart, LU)2030 (Given - Provider: Alberto Dillon RN) 100 (Given - Provider: Marguerite Wakefield, RN) furosemide (LASIX) tablet 20 mg 20 mg, Oral, Daily, First dose on Mon04/05/25 at 0900 906 (Given - Provider: Shirley Hart RN) 905 (Given - Provider: Shirley Hart RN) 1000 (Given - Provider: Marguerite Wakefield, RN) hydroCHLOROthiazide tablet 12.5 mg 12.5 mg, Oral, Daily, First dose on Mon04/05/25 at 0900, Caution: Look alike/sound alike drug alert 905 (Given - Provider: Shirley Hart RN) 905 (Given - Provider: Shirley Hart, RN) 1000 (Given - Provider: Marguerite Wakefield, RN) ketorolac [...] Dillon RN) 100 (Given - Provider: Marguerite Wakefield RN) sertraline (ZOLOFT) tablet 100 mg 100 [...] Continuous Medication Order 04/09/2025 04/10/2025 04/11/2025 heparin 30904 units/250 mL (100 units/mL) in 0.45 % NaCl infusion (CANCELED) 18 Units/kg/hr 134 kg (24.12 mL/hr, rounded to 24.1 mL/hr), Intravenous, Titrated, Starting on Mon04/05/25 at 0045, Pharmacy dosing - VTE (PE/DVT) - Boluses (No initial bolus), Indications: DVT/PE (active thrombosis) 0614 (New Bag - Provider: Bob Rosenberg, LU)0712 (Handoff - Provider: Bob Rosenberg RN)1633 (New Bag - Provider: Shirley Hart, LU) 0313 (New Bag - Provider: Alberto Dillon, LU)1112 (Stopped - Provider: Shirley Hart RN - [...] CPOT 5-8 2032 (Given - Provider: Alberto Dillon, RN) 0906 (Given - Provider: Shirley Hart, [...] CPOT 5-8 0413 (Given - Provider: Bob Rosenberg RN)0614 (Given - Provider: Bob Rosenberg RN)1006 (Given - Provider: Shirley Hart, UL)1220 (Given - Provider: Shirley Hart, RN)1438 (Given - Provider: Shirley Hart, RN)1628 (Given - Provider: Shirley Hart, RN)1815 (Given - Provider: Shirley Hart, RN)2032 (Given - Provider: Alberto Dillon, RN)2245 (Given - Provider: Alberto Dillon, LU) 0109 (Given - Provider: Alberto Dillon, RN)0655 (Given - Provider: Alberto Dillon RN)1414 (Given - Provider: Shirley Hart, RN)2124 (Given - Provider: Alberto Dillon RN) 1003 [...] BPA Driven Protocol [facility] Electrolyte Replacement Protocol Algorithm to View [...] BPA Driven Protocol [facility] Electrolyte Replacement Protocol Algorithm to View [...] documented as of this encounter Care Teams Leaflet Or Newspaper Deliverer Relationship Specialty Start Date End Date Provider, No Known [facility] [place] [address] PCP - General 05/09/23 documented as of this encounter
--- OUTSIDE RECORDS SUMMARY | 2025-04-07 18:00 | XMS_ITS | Encounter Summary ---
[facility] Address [address] [place] [address] Care Team Providers Care Sales Assistant Entertainment And Media Name Role Phone Provider, No Known Primary Care Provider Unavail able Reason for Visit * Reason Comments Leg Swelling * Auth/Cert Specialty Diagnoses / Procedures Referred By Contac t Referred To Contact Diagnoses Right BKA infection Referral ID Status Reason Start Date Expiration Date Visits Re quested Visits Authorized [id number] 1 1 Encounter Details Date Type Department Care Team (Late st Contact Info) Description 04/07/2025 6:00 PM EDT - 04/07/2025 6:52 PM EDT Surgery [facility] OR [address] [place] [address] Sushil Dean Jr., MD [address] [place] [address] [address] [id number] LEG DEBRIDEMENT, IRRIGATION Social History Tobacco Use Types Packs/Day Years Used Date Smoking Tobacco: Never Smokeless Tobacco: Never Tobacco Cessation:Counseling Given: Not Answered Alcohol Use Standard Drinks/Week Comments Not Currently 0 (1 standard drink = 0.6 oz pur e alcohol) [facility] Utilities Answer Date Recorded In the past 12 months has [employer] electric, gas, oil, or water company threatened [...] training? Not on file Preferred Language South African 04/07/2025 Sex and Gender Information Value [...] 2:25 PM EDT Cherri Grimm RN * [place] Suicide Severity Rating Scale (Screener/Recent Self-Report) Question [...] from the original note were not included. [facility] Medicine Services DISCHARGE SUMMARY Patient [...] Date/Time Wound Culture - Swab, Leg, Right [[id number]] (Abnormal) (Susceptibility) Collected: 04/07/252106 Lab Status: Final [...] Units Date/Time FL C Arm During Surgery [[id number]] Resulted: 04/07/252137 Updated: 04/07/252137 Narrative: This procedure was auto-finalized with no dictation required. MRI Tibia Fibula Right With & Without Contrast [[id number]] Collected: 04/07/25 0938 Updated: 04/07/25 1001 Narrative: [...] Buenrostro 04/07/2025 9:58 AM EDT Workstation ID: [id number] MRI Tibia Fibula Right With & Without Contrast [[id number]] Collected: 04/04/252256 Updated: 04/04/252302 Narrative: MRI TIBIA [...] represent a small area of phlegmonous change ([id number] image 10) measuring approximately 1.6 cm which [...] MD 04/04/2025 11:00 PM EDT Workstation ID: [id number] Pending Labs Order Current Status Fungus Culture [...] Male) Date of 1980 Social Security Number [id number] [place] [address] [place] [address] Christianity Unknown Marital Status Unknown Admission Date 04/04/2025 Admission Type Emergency Admitting Provider Jadyn Richardson DO Attending Provider Jadyn Richardson DO Department, Room/Bed [facility] 5G, S565/1 Discharge Date Discharge Disposition [...] [place] [id number] Payor Plan Address Payor Plan Phone Number Payor Plan Fax Number Effective Dates [employer] [address] [address] 08/10/2023 - None Entered [facility] [address] Subscriber Name Subscriber Date Member ID WON DENNIS 1980 [id number] Emergency Contacts Assembler Body (Rel.) Home Phone Work Phone Mobile Phone Avril Dennis (Spouse) -- -- [phone] Robert Hackett (Relative) -- -- [phone] [facility] 5G [address] [facility] [address] Patient: ROOM: [facility] Won Dennis [address] [facility] [place] [address] : 1980 SSN: [id number] Sex: M PCP: Provider, No Known Emergency Contact Information Name Relation Home Work Mobile Avril Dennis Spouse [phone] Other Contacts Name Relation Home Work Mobile Robert Hackett Relative [phone] INSURANCE PAYOR PLAN [employer] # SUBSCRIBER ID Primary: Secondary: MEDICARE [place]ICA[place] [id number] Admitting Diagnosis: 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] Order Date: Apr 09, 2025 Case Management [place] Consult (Order ID: [id number]) Diagnosis: Priority: Routine Expected Date: Expiration Date: [...] Collapse All INFECTIOUS DISEASE Progress Note Won eDnnis 1980 [id number] Date of Consult: 04/10/2025 Admission Date: 04/04/2025 [...] Jr., MD, 20 mg at 04/09/25906 heparin 92572 units/250 mL (100 units/mL) in 0.45 % [...] vancomycin 2750 mg/500 mL 0.9% NS IVPB ([facility]) Ordering Provider: Mario Crowley, DO 20 mg/kg [...] Units Date/Time FL C Arm During Surgery [[id number]] Resulted: 04/07/252137 Updated: 04/07/252137 Narrative: This procedure was auto-finalized with no dictation required. MRI Tibia Fibula Right With & Without Contrast [[id number]] Collected: 04/07/2538 Updated: 04/07/25 1001 Narrative: MRI [...] Buenrostro 04/07/2025 9:58 AM EDT Workstation ID: [id number] Impression: Recurrent Right BKA stump abscess/cellulitis- this [...] discussed his disposition with the pharmacist at [facility] today. I will sign off Outpatient orders: 1. Outpatient intravenous antibiotic therapy: Daptomycin 800 mg IV daily to be supplied by [facility] 2. Home health to perform [...] 04/10/251323 Creation Time: 04/10/251323 Signed Expand All [facility] Medicine Services PROGRESS NOTE Patient Name: Won [...] Date/Time Wound Culture - Swab, Leg, Right [[id number]] (Abnormal) (Susceptibility) Collected: 04/07/252106 Lab Status: Final [...] Row Name 04/06/25 1143 Sit-Stand Transfer Sit-Stand [place] (Transfers) modified independence - Comment, (Sit-Stand Transfer) Pt stood from recliner. Not holding onto walker, pt able to pull his pants up while balancing on his one leg. -LM Row Name 04/06/25 1143 Gait/Stairs (Locomotion) [place] Level (Gait) modified independence - Distance in [...] bilateral lower extremity ROM WFL -LM [facility] Name 04/06/25 1145 Strength Comprehensive (MMT) General Manual Muscle Testing (MMT) Assessment no strength deficits identified BLEs -LM [facility] Name 04/06/25 1145 Balance Balance [...] Therapist Goals/Plan No documentation. Clinical Impression [facility] 04/06/25 1146 Pain Pretreatment Pain Rating 0/10 - no pain -LM Posttreatment Pain Rating 0/10 - no pain -LM [facility] 04/06/25 1146 Plan of Care Review Plan of Care Reviewed With patient -LM Outcome Evaluation PT evaluation completed. Pt demonstrated independence with all mobility including ambulating 100 feet using rw - no unsteadiness noted. Pt reports he feels at baseline and doesn't think he needs skilled PT while here. Recommend home at d/c. PT signing off. -LM [facility] Name 04/06/25 1146 Therapy Assessment/Plan (PT) Criteria for Skilled Interventions Met (PT) no;no problems identified which require skilled intervention -LM Therapy Frequency (PT) evaluation only -LM Predicted Duration of Therapy Intervention (PT) Eval Only -LM [facility] Name 04/06/25 1146 Vital Signs Pretreatment Heart Rate (beats/min) 86 -LM Posttreatment Heart Rate (beats/min) 96 -LM Pre SpO2 (%) 95 -LM O2 Delivery Pre Treatment room air -LM Post SpO2 (%) 96 -LM O2 Delivery Post Treatment room air -LM Pre Patient Position Sitting -LM Post Patient Position Sitting -LM [facility] Name 04/06/25 1146 Positioning and [...] Nurse Physical Therapy Education Title: PT OT COFFEE SUPERVISOR Therapies (Done) Topic: Physical Therapy (Done) Point: Mobility training (Done) Learning Progress Summary Patient Acceptance, E, VU,DU by at 04/06/2025 1147 Point: Precautions (Done) Learning Progress Summary Patient Acceptance, E, VU,DU by at 04/06/2025 1147 User Cabrera Initials Effective Dates Name Provider Type [facility] 01/24/25 - Susan Cavazos, PT Physical [...] Description Service Date Service Provider Modifiers Qty [id number] PT EVAL LOW COMPLEXITY 3 04/06/2025 Susan [...] from the original note were not included. [facility] Medicine Services PROGRESS NOTE Patient [...] Date/Time Wound Culture - Swab, Leg, Right [[id number]] (Abnormal) (Susceptibility) Collected: 04/07/252106 Lab Status: Final [...] INFECTIOUS DISEASE Progress Note Won Dennis 1980 [id number] Date of Consult: 04/10/2025 Admission Date: 04/04/2025 [...] IRRIGATION; Surgeon: Sushil Dean Jr., MD; Location: [facility]; Service: Orthopedics; Laterality: Right; PLACEMENT OF [...] Jr., MD, 20 mg at 04/09/25906 heparin 18843 units/250 mL (100 units/mL) in 0.45 % [...] / BPA Driven Protocol, , Not Applicable, PRNJremaine David A Jr., MD saccharomyces boulardii (FLORASTOR) [...] % flush 10 mL, 10 mL, Intravenous, PRAlyec Pearson Mark J, MD sodium chloride 0.9 [...] Units Date/Time FL C Arm During Surgery [[id number]] Resulted: 04/07/252137 Updated: 04/07/252137 Narrative: This procedure was auto-finalized with no dictation required. MRI Tibia Fibula Right With & Without Contrast [[id number]] Collected: 04/07/25 0938 Updated: 04/07/25 1001 Narrative: [...] Chitra 04/07/2025 9:58 AM EDT Workstation ID: [id number] Impression: Recurrent Right BKA stump abscess/cellulitis- this [...] discussed his disposition with the pharmacist at [facility] today. I will sign off Outpatient orders: 1. Outpatient intravenous antibiotic therapy: Daptomycin 800 mg IV daily to be supplied by [facility] 2. Home health to perform [...] 04/10/2025 07:38 EDT * Larisa Hamilton, [facility] - 04/10/2025 7:17 [...] 0500 0.30 11 -- -- 11 1200 [facility] 04/05 1215 0.17 11 1999 +3 [...] from the original note were not included. [facility] Medicine Services PROGRESS NOTE Patient [...] Date/Time Wound Culture - Swab, Leg, Right [[id number]] (Abnormal) Collected: 04/07/252106 Lab Status: Preliminary result [...] Álvarez DO 04/09/25 * Larisa Hamilton, [facility] - 04/09/2025 11:36 [...] 0500 0.30 11 -- -- 11 1200 [facility] 04/05 1215 0.17 11 1999 +3 [...] INFECTIOUS DISEASE Progress Note Won Dennis 1980 [id number] Date of Consult: 04/09/2025 Admission Date: 04/04/2025 [...] Surgeon: Sushil Dean Jr., MD; Location: [facility]; Service: Orthopedics; Laterality: Right; PLACEMENT OF WOUND VAC Right 04/07/2025 Procedure: WOUND VACUUM ASSISTED CLOSURE; Surgeon: Sushil Dean Jr., MD; Location: [facility]; Service: Orthopedics; Laterality: Right; History reviewed. [...] MD, 20 mg at 04/08/25 0800 heparin 91362 units/250 mL (100 units/mL) in 0.45 % [...] Units Date/Time FL C Arm During Surgery [[id number]] Resulted: 04/07/252137 Updated: 04/07/252137 Narrative: This procedure was auto-finalized with no dictation required. MRI Tibia Fibula Right With & Without Contrast [[id number]] Collected: 04/07/25937 Updated: 04/07/25 1001 Narrative: MRI [...] Chitra 04/07/2025 9:58 AM EDT Workstation ID: [id number] Impression: Recurrent Right BKA stump abscess/cellulitis- this [...] from the original note were not included. [facility] Medicine Services PROGRESS NOTE Patient [...] Buenrostro 04/07/2025 9:58 AM EDT Workstation ID: [id number] I have personally reviewed the therapy plans: [...] DO Preeti 04/08/25 * Larisa Hamilton, [facility] - 04/08/2025 11:48 [...] INFECTIOUS DISEASE Progress Note Won Dennis 1980 [id number] Date of Consult: 04/08/2025 Admission Date: 04/04/2025 [...] Jr., MD; Location: [facility] OR; Service: Orthopedics; Laterality: [...] Jr., MD, 20 mg at 04/07/25950 heparin 02746 units/250 mL (100 units/mL) in 0.45 % [...] 500 mL Status: Discontinued Ordering Provider: Una ePrla, PharmD 1,500 mg 333.3 mL/hr over 90 [...] Units Date/Time FL C Arm During Surgery [[id number]] Resulted: 04/07/252137 Updated: 04/07/252137 Narrative: This procedure was auto-finalized with no dictation required. MRI Tibia Fibula Right With & Without Contrast [[id number]] Collected: 04/07/25 0938 Updated: 04/07/25 1001 Narrative: [...] Buenrostro 04/07/2025 9:58 AM EDT Workstation ID: [id number] Impression: Right BKA stump cellulitis- s/p BKA with multiple surgical interventions with Known MRSA 05/09/2025. (Treated by ID in [place] Dr. Harris). Dr. Torres treated him with [...] from the original note were not included. [facility] Medicine Services PROGRESS NOTE Patient [...] Buenrostro 04/07/2025 9:58 AM EDT Workstation ID: [id number] I have personally reviewed the therapy plans: [...] 18 Units/kg/hr, Last Rate: 18 Units/kg/hr (04/07/25 2478) Pharmacy to Dose Heparin, PRN Meds:. acetaminophen [...] Álvarez DO 04/07/25 * Larisa Hamilton [facility] - 04/07/2025 11:56 [...] INFECTIOUS DISEASE Progress Note Won Dennis 1980 [id number] Date of Consult: 04/07/2025 Admission Date: 04/04/2025 [...] Application, 1 Application, Topical, Q12H, Ayah Valentin, BUILDING CARPENTER HELPER, 1 Application at 04/06/252101 DAPTOmycin (CUBICIN) 800 [...] MD, 20 mg at 04/06/25 0900 heparin 09146 units/250 mL (100 units/mL) in 0.45 % [...] With & Without Contrast - In process [[id number]] Resulted: 04/07/25828 Updated: 04/07/25828 This result has not been signed. Information might be incomplete. 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 (Treated by ID in [place] Dr. Harris). Dr. Torres treated him with [...] mg Daily 04/05/2025 -- Route: Oral heparin 67233 units/250 mL (100 units/mL) in 0.45 % [...] -- Admin Instructions: Open Order & Select [facility] Electrolyte Replacement Protocol Algorithm to View Details [...] -- Admin Instructions: Open Order & Select [facility] Electrolyte Replacement Protocol Algorithm to View Details [...] 0500 0.30 11 -- -- 11 1200 [facility] 04/05 1215 0.17 11 1999 +3 14 2100 DW RN Pump checked 04/05 2043 0.38 14 -- -- 14 0300 [facility] 04/06 0530 0.25 14 -- +2 16 1200 [address] Mary 04/06 1236 0.24 16 -- +2 18 1999 LU Beatty [facility] 04/06/2025 13:48 EDT * Jason Álvarez DO - 04/06/2025 12:47 PM EDT Images from the original note were not included. [facility] Medicine Services PROGRESS NOTE Patient [...] MD 04/04/2025 11:00 PM EDT Workstation ID: [id number] I have personally reviewed the therapy plans: [...] mg Daily 04/05/2025 -- Route: Oral heparin 43264 units/250 mL (100 units/mL) in 0.45 % [...] INFECTIOUS DISEASE follow up. 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 (Treated by ID in [place] Dr. Harris). Dr. Torres treated him with [...] 04/06/2025 16:00 EDT * Cherri Beatty, [facility] - 04/05/2025 3:01 PM EDT [...] from the original note were not included. [facility] Medicine Services PROGRESS NOTE Patient [...] MD 04/04/2025 11:00 PM EDT Workstation ID: [id number] I have personally reviewed the therapy plans: [...] from the original note were not included. [facility] Medicine Services HISTORY AND PHYSICAL [...] MD 04/04/2025 11:00 PM EDT Workstation ID: [id number] Assessment & Plan Assessment & Plan Won [...] 4FR PICC placed by Rhoda Bonner RN [facility], tip verified by 3CG see LDA. * Sushil Dean Jr., MD - 04/05/2025 8:07 AM EDTAssociated Order(s): IP CONSULT TO ORTHOPEDIC SURGERY [facility], [facility] [address] [address] Orthopedic Consult Patient: Won Dennis Date of [...] was evaluated in the emergency department in [place], was discharged with instructions for follow-up. He [...] by mouth Daily. 04/03/2025 Morning Lactobacillus-Inulin ([facility]) capsule Take 200 mg by mouth Daily. [...] MD 04/04/2025 11:00 PM EDT Workstation ID: [id number] Assessment: Right BKA infection 44-year-old male with [...] DISEASE CONSULT/INITIAL HOSPITAL VISIT Won Dennis 1980 [id number] Date of Consult: 04/05/2025 Admission Date: 04/04/2025 [...] mg, 325 mg, Rectal, Q6H PRN, Leonora Shehperd MD atorvastatin (LIPITOR) tablet 40 mg, 40 [...] MD, 20 mg at 04/05/25 0916 heparin 05023 units/250 mL (100 units/mL) in 0.45 % [...] Tibia Fibula Right With & Without Contrast [[id number]] Collected: 04/04/252256 Updated: 04/04/252302 Narrative: MRI TIBIA [...] MD 04/04/2025 11:00 PM EDT Workstation ID: [id number] Impression: Right BKA stump cellulitis- s/p BKA with multiple surgical interventions with Known MRSA 05/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 (Treated by ID in [place] Dr. Harris). Dr. Torres treated him with [...] infection POSTOP DIAGNOSIS: Same. PROCEDURE: Right Right 72221: Secondary closure below-knee amputation SURGEON: Sushil Dean MD OPERATIVE TEAM: Language And Literature Division Chair: Susi Grullon RN Scrub Person: Mary Paredes Scrub Person Extra: Hortencia Toribio Other: Katt Gotti RN; Charis Neville RN ANESTHETIST: Anesthesiologist: Ulises Hoffman MD RECEPTION CENTRE MANAGER: Stan Casillas CRNA Student Nurse Broadband Installer: Karol Albert SRNA ANESTHESIA: Choice ESTIMATED BLOOD [...] CULTURE (Canceled) Sushil Dean Jr., MD 04/08/25 8664 Description: RIGHT LEG DEEP WOUND FOR CULTURE [...] [facility] [address] [facility] 250 OPERATIVE REPORT PATIENT NAME: Won Dennis DATE OF : 1980 PREOP DIAGNOSIS: Right Right below knee amputation stump infection POSTOP DIAGNOSIS: Same. PROCEDURE: Right Right 88905: Incision and drainage of surgical site infection 16109: Debridement of skin, subcutaneous tissue, muscle 83035: Wound vacuum-assisted closure SURGEON: Sushil Dean MD OPERATIVE TEAM: Language And Literature Division Chair: Anum Sanchez RN Scrub Person: Hortencia Toribio; Gerald Ivey POSTDOCTORAL RESEARCH ASSOCIATE: Anesthesiologist: Luci Alonso DO ANESTHESIA: General ESTIMATED [...] this chart in the absence of a comber fixer. No orders to display RADIOLOGY: [x] Radiologist's [...] is discharging home with outpatient infusion at [facility]. He has an appointment with [facility] at 8:00 am tomorrow. They will do PICC line dressing changes. CM [facility] D[facility] [...] with KELLEE and given themhis Medicare number [id number], she sent it to Admission. CM spoke with Kerri, with [facility], and explained that he had Medicare A and B. However, it will not cover home infusion. It will be $64.00 a day out of packet. Patients can go to the Infusion center at [facility], and it will cover the cost as an outpatient. He will need to go there every day for infusion. They will be able to do the patients' PICC line dressing changes and lab work. CM called [facility] they can accept patient and start him. He is known for their facility. The Facility will need to run it through his insurance first. CM faxed the orders over to [facility] at [phone]. CM will follow up with them tomorrow at [facility] to make sure they received [...] with patient at bedside today. Wheelchair from [facility] is at bedside. Patient getting PICC line [...] note were not included. 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 Patient lives with and his 5 kids in [facility] [place]. 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 He has walker, cane, shower chair, and crutches. He requested a wheelchair for home. CM will order wheelchair through [employer]. He is not current with home health services. PCP is Dr. Jordan. Insurance is [employer] [place]. Patient discharge plan is home with priavte transport. CM will follow for any discharge needs. Final Discharge Disposition Code 01 - home or self-care Continued Care and Services - Admitted Since 04/04/2025 No active coordination exists. Demographic Summary Row Name 04/07/25 1143 General Information Arrived From hospital Preferred Language South African Functional Status Row Name 04/07/25 1143 [...] CBC Auto Differential (04/11/2025 3:40 AM EDT) [facility] WBC 7.87 3.40 - 10.80 10*3/mm3 [...] 140 - 450 10*3/mm3 04/11/2025 4:02 AM [facility] Neutrophil % 59.5 42.7 - 76.0 % 04/11/2025 4:02 AM [facility] Lymphocyte % 26.3 19.6 - 45.3 % 04/11/2025 4:02 AM [facility] Monocyte % 9.3 5.0 - 12.0 % 04/11/2025 4:02 AM [facility] Eosinophil % 4.1 0.3 - 6.2 % 04/11/2025 4:02 AM [facility] Basophil % 0.4 0.0 - 1.5 % 04/11/2025 4:02 AM [facility] Immature Grans % 0.4 0.0 - 0.5 % 04/11/2025 4:02 AM [facility] Neutrophils, Absolute 4.69 1.70 - 7.00 10*3/mm3 04/11/2025 4:02 AM [facility] Lymphocytes, Absolute 2.07 0.70 - 3.10 10*3/mm3 04/11/2025 4:02 AM [facility] Monocytes, Absolute 0.73 0.10 - 0.90 10*3/mm3 04/11/2025 4:02 AM [facility] Eosinophils, Absolute 0.32 0.00 - 0.40 10*3/mm3 04/11/2025 4:02 AM [facility] Basophils, Absolute 0.03 0.00 - 0.20 10*3/mm3 04/11/2025 4:02 AM [facility] Immature Grans, Absolute 0.03 0.00 - 0.05 10*3/mm3 04/11/2025 4:02 AM [facility] nRBC 0.0 0.0 - 0.2 /100 WBC 04/11/2025 4:02 AM [facility] Blood Venipuncture / Unknown 04/11/2025 3:40 AM EDT 04/11/2025 3:59 AM EDT us Sushil Dean Jr., MD LAB BLOOD ORDERABLES Fi nal Result [facility]
[address] [place] [address], * (ABNORMAL) Comprehensive Metabolic Panel (04/11/2025 3:40 AM EDT) Pathologist [facility] Glucose 108(H) 65 - 99 mg/dL 04/11/2025 [...] 3:40 AM EDT 04/11/2025 3:56 AM EDT [facility] - 04/11/2025 4:19 AM [...] Hill APRN LAB BLOOD ORDERABLES Final Result [facility]
[address] [place] [address], * (ABNORMAL) CBC Auto Differential (04/10/2025 3:46 AM EDT) [facility] WBC 9.60 3.40 - 10.80 10*3/mm3 [...] - 35.7 g/dL 04/10/2025 3:56 AM EDT [facility] RDW 12.9 12.3 - 15.4 % 04/10/2025 3:56 AM EDT [facility] RDW-SD 40.5 37.0 - 54.0 fl 04/10/2025 3:56 AM EDT [facility] MPV 9.5 6.0 [...] Final Resul t [facility]
[address] [place] [address], * (ABNORMAL) Basic Metabolic Panel (04/10/2025 3:46 AM EDT) Glucose 125(H) 65 - 99 mg/dL 04/10/2025 4:20 AM [facility] BUN 15.9 6.0 - 20.0 mg/dL 04/10/2025 4:20 AM [facility] Creatinine 0.77 0.76 - 1.27 mg/dL 04/10/2025 4:20 AM [facility] Sodium 137 136 - 145 mmol/L 04/10/2025 4:20 AM [facility] Potassium 3.9 3.5 - 5.2 mmol/L 04/10/2025 4:20 AM [facility] Chloride 102 98 - 107 mmol/L 04/10/2025 4:20 AM [facility] CO2 26.9 22.0 - 29.0 mmol/L 04/10/2025 4:20 AM [facility] Calcium 7.9(L) 8.6 - 10.5 mg/dL 04/10/2025 4:20 AM [facility] BUN/Creatinine Ratio 20.6 7.0 - 25.0 04/10/2025 4:20 AM [facility] Anion Gap 8.1 5.0 - 15.0 mmol/L 04/10/2025 4:20 AM [facility] eGFR 113.2 >60.0 mL/min/1.7 3 04/10/2025 4:20 AM [facility] Blood Venipuncture / Unknown 04/10/2025 3:46 AM EDT 04/10/2025 3:52 AM [facility] - [...] Final Resul t [facility]
[address] [place] [address], * Heparin Anti-Xa (04/10/2025 3:46 AM EDT) Heparin Anti-Xa (UFH) 0.35 0.30 - 0.70 IU/ml 04/10/2025 4:23 AM EDT [facility] Blood Venipuncture / Unknown 04/10/2025 3:46 AM EDT 04/10/2025 3:53 AM EDT [facility] LAB BLOOD ORDERABLES Final R esult Performing Organization Address City/[facility]/ZIP Co de Phone Number [facility]
[address] [place] [address], * Heparin Anti-Xa (04/09/2025 10:05 AM EDT) Pathologist [facility] Heparin Anti-Xa (UFH) 0.36 0.30 - 0.70 IU/ml 04/09/2025 11:12 AM EDT [facility] Blood Venipuncture / Unknown 04/09/2025 10:05 AM EDT 04/09/2025 10:47 AM EDT [facility] LAB BLOOD ORDERABLES Final R esult [facility]
[address] [place] [address], * (ABNORMAL) CBC Auto Differential (04/09/2025 4:18 AM EDT) WBC 11.00(H) 3.40 - 10.80 10*3/mm3 04/09/2025 4:50 AM EDT [facility] RBC 4.70 4.14 - 5.80 10*6/mm3 04/09/2025 4:50 AM EDT [facility] Hemoglobin 13.0 13.0 - 17.7 g/dL 04/09/2025 4:50 AM EDT [facility] Hematocrit 40.4 37.5 - 51.0 % 04/09/2025 4:50 AM EDT [facility] MCV 86.0 79.0 - 97.0 [...] 37.0 - 54.0 fl 04/[facility] MPV 10.0 6.0 - 12.0 fL 04/09/2025 4:[facility] Platelets 211 140 - 450 10*3/mm3 04/09/2025 4:50 AM EDT [facility] Neutrophil % 74.8 42.7 - 76.0 % 04/09/2025 4:50 AM EDT [facility] Lymphocyte % 15.4(L) [...] Jr., MD LAB BLOOD ORDERABLES nal Result [facility]
[address] [place] [address], * Heparin Anti-Xa (04/09/2025 4:18 AM EDT) Heparin Anti-Xa (UFH) 0.41 0.30 - 0.70 IU/ml 04/09/2025 4:53 AM EDT [facility] Blood Venipuncture / Unknown 04/09/2025 4:18 AM EDT 04/09/2025 4:31 AM EDT Una Minda PharmD LAB BLOOD ORDERABLES Final R esult [facility]
[address] [place] [address], * (ABNORMAL) Basic Metabolic Panel (04/09/2025 4:18 [...] ORDERABLES Fi nal Result Performing Organization Address City/[facility] Co de Phone Number [facility]
[address] [place] [address], * Wound Culture - Swab, Leg, Right (04/08/2025 3:40 PM EDT) Wound Culture No growth at 3 days ALIZA 04/11/2025 10:40 AM EDT [facility] Gram Stain Few (2+) WBCs seen 04/11/2025 10:40 AM EDT [facility] Gram Stain No organisms seen 04/11/2025 10:40 AM EDT [facility] Swab Structure of right lower limb / Unknown 04/08/2025 3:40 PM EDT 04/08/2025 8:05 PM EDT Sushil Dean Jr., MD MICROBIOLOGY - GENERAL ORDERABLES Final Result Performing Organization Address City/[facility]/ZIP Co de Phone Number [facility]
[address] [place] [address], [place] [phone] [facility]
[address] [place] [address], * Anaerobic Culture - Swab, Leg, Right (04/08/2025 3:40 PM EDT) Pathologist [facility] Anaerobic Culture No anaerobes isolated at 5 days ALIZA 04/13/2025 7:24 AM EDT [facility] Swab Structure of right lower limb / Unknown 04/08/2025 3:40 PM EDT 04/08/2025 8:05 PM EDT Sushil Dean Jr., MD MICROBIOLOGY - GENERAL ORDERABLES Final Result Performing Organization Address City/[facility] Co de Phone Number [facility]
[address] [place] [address], * Scan Slide (04/08/2025 8:41 AM EDT) [...] Final R esult [facility]
[address] [place] [address], [place] [phone] * (ABNORMAL) CBC Auto Differential (04/08/2025 8:41 AM EDT) Pathologist [facility] WBC 10.07 3.40 - 10.80 10*3/mm3 04/08/2025 11:02 AM EDT [facility] RBC 5.01 4.14 - 5.80 10*6/mm3 04/08/2025 11:02 AM [facility] Hemoglobin 14.0 13.0 - 17.7 g/dL 04/08/2025 11:02 AM [facility] Hematocrit 42.7 37.5 - 51.0 % 04/08/2025 11:02 AM [facility] MCV 85.2 79.0 - 97.0 fL 04/08/2025 11:02 AM [facility] MCH 27.9 26.6 - 33.0 pg 04/08/2025 11:02 AM [facility] MCHC 32.8 31.5 - 35.7 g/dL 04/08/2025 11:02 AM [facility] RDW 12.6 12.3 - 15.4 % 04/08/2025 11:02 AM [facility] RDW-SD 38.9 37.0 - 54.0 fl 04/08/2025 11:02 AM [facility] MPV 11.0 6.0 - 12.0 fL 04/08/2025 11:02 AM [facility] Platelets 118(L) 140 - 450 10*3/mm3 04/08/2025 11:02 AM [facility] Neutrophil % 85.1(H) 42.7 - 76.0 % 04/08/2025 11:02 AM [facility] Lymphocyte % 9.3(L) 19.6 - 45.3 % 04/08/2025 11:02 AM [facility] Monocyte % 4.6(L) 5.0 - 12.0 % 04/08/2025 11:02 AM [facility] Eosinophil % 0.3 0.3 - 6.2 % 04/08/2025 11:02 AM [facility] Basophil % 0.2 0.0 - 1.5 % 04/08/2025 11:02 AM [facility] Immature Grans % 0.5 0.0 - 0.5 % 04/08/2025 11:02 AM EDT [facility] Neutrophils, Absolute 8.57(H) 1.70 - 7.00 10*3/mm3 04/08/2025 11:02 AM EDT [facility] Lymphocytes, Absolute 0.94 [...] Final R esult [facility]
[address] [place] [address], * (ABNORMAL) Basic Metabolic Panel (04/08/2025 8:41 [...] 8:41 AM EDT 04/08/2025 9:09 AM EDT [facility] - 04/08/2025 9:51 AM [...] Fi nal Result [facility]
[address] [place] [address], [place] [phone] * Heparin Anti-Xa (04/08/2025 8:41 AM EDT) Heparin Anti-Xa (UFH) 0.33 0.30 - 0.70 IU/ml 04/08/2025 9:40 AM EDT [facility] Blood Venipuncture / Unknown 04/08/2025 8:41 AM EDT 04/08/2025 9:10 AM EDT us Sushil Dean Jr., MD LAB BLOOD ORDERABLES Fi nal Result Performing Organization Address [facility] Co de Phone Number [facility]
[address] [place] [address], * FL C Arm During Surgery (04/07/2025 9:32 PM EDT) Narrative SYSTEMGENERATED, DOCUMENTATION - 04/07/2025 9:38 PM EDT This procedure was auto-finalized with no dictation required. us Sushil Dean Jr., MD IMG FLUOROSCOPY ORDERAB LES Final Result * Wound Culture - Swab, Leg, Right (04/07/2025 9:14 PM EDT) Wound Culture No growth at 3 days ALIZA 04/11/2025 10:40 AM EDT [facility] Gram Stain Occasional WBCs seen 04/11/2025 10:40 AM EDT [facility] Gram Stain No organisms seen 04/11/2025 10:40 AM EDT [facility] Swab Structure of right lower limb / Unknown Collection / Unknown 04/07/2025 9:14 PM EDT 04/08/2025 4:36 AM EDT us Sushil Dean Jr., MD MICROBIOLOGY - GENERAL ORDERABLES Final Result Performing Organization Address City/[facility]/ZIP Co de Phone Number [facility]
[address] [place] [address], [facility]
[address] [place] [address], * Anaerobic Culture - Swab, Leg, Right (04/07/2025 9:14 PM EDT) Anaerobic Culture No anaerobes isolated at 5 days ALIZA 04/13/2025 7:21 AM EDT [facility] Swab Structure of right lower limb / Unknown Collection / Unknown 04/07/2025 9:14 PM EDT 04/08/2025 4:36 AM EDT Sushil Dean Jr., MD MICROBIOLOGY - GENERAL ORDERABLES Final Result Performing Organization Address [facility]/ZIP Co de Phone Number [facility]
[address] [place] [address], * Anaerobic Culture - Tissue, Leg (04/07/2025 9:13 PM EDT) Anaerobic Culture No anaerobes isolated at 5 days ALIZA 04/13/2025 7:21 AM EDT [facility] Tissue Lower limb structure / Unknown Collection / Unknown 04/07/2025 9:13 PM EDT 04/08/2025 4:54 AM EDT Jason Álvarez DO MICROBIOLOGY - GENERAL ORDERABLE S Final Result [facility]
[address] [place] [address], * Tissue / Bone Culture - Tissue, Leg, Right (04/07/2025 9:13 PM EDT) Tissue Culture No growth at 3 days ALIZA 04/11/2025 10:36 AM EDT [facility] Gram Stain Rare (1+) WBCs seen 04/11/2025 10:36 AM EDT [facility] Gram Stain No organisms seen 04/11/2025 10:36 AM EDT [facility] Tissue Structure of right lower limb / Unknown 04/07/2025 9:13 PM EDT 04/08/2025 4:54 AM EDT Sushil Dean Jr., MD MICROBIOLOGY - GENERAL ORDERABLES Final Result [facility]
[address] [place] [address], [place] [phone] [facility]
[address] [place] [address], [place] [phone] * (ABNORMAL) Wound Culture - Swab, Leg, Right (04/07/2025 9:07 PM EDT) Wound Culture Light growth (2+) Staphylococcus aureus, MRSA(A) ALIZA 04/10/2025 10:38 AM EDT [facility] Comment: Methicillin resistant Staphylococcus aureus, Patient may be an isolation risk. Gram Stain Few (2+) WBCs seen 04/10/2025 10:38 AM EDT [facility] Gram Stain No organisms seen 10:38 AM EDT [facility] [...] Result Performing Organization Address [facility] Co de Phone Number [facility]
[address] [place] [address], [facility]
[address] [place] [address], * Anaerobic Culture - Swab, Leg, Right (04/07/2025 9:07 PM EDT) [facility] Anaerobic Culture No anaerobes isolated at 5 days ALIZA 04/13/2025 7:21 AM EDT [facility] Swab Structure of right lower limb / Unknown Collection / Unknown 04/07/2025 9:07 PM EDT 04/08/2025 4:36 AM EDT Sushil Dean Jr., MD MICROBIOLOGY - GENERAL ORDERABLES Final Result Performing Organization Address [facility] Co de Phone Number [facility]
[address] [place] [address], * Heparin Anti-Xa (04/07/2025 9:10 AM EDT) [facility] Heparin Anti-Xa (UFH) 0.30 0.30 - 0.70 IU/ml 04/07/2025 10:12 AM EDT [facility] Blood Venipuncture / Unknown 04/07/2025 9:10 AM EDT 04/07/2025 9:38 AM EDT Una Perla PharmD LAB BLOOD ORDERABLES Final R esult Performing Organization Address [facility] Co de Phone Number [facility]
[address] [place] [address], * (ABNORMAL) CBC Auto Differential (04/07/2025 9:10 AM EDT) [facility] WBC 8.63 3.40 - 10.80 10*3/mm3 [...] 31.5 - 35.7 g/dL 04/07/2025 9:50 AM [facility] RDW 12.8 12.3 - 15.4 % 04/07/2025 9:50 AM [facility] RDW-SD 39.9 37.0 - 54.0 fl 04/07/2025 9:50 AM [facility] MPV 10.8 6.0 - 12.0 fL 04/07/2025 9:50 AM [facility] Platelets 149 140 - 450 10*3/mm3 04/07/2025 9:50 AM [facility] Neutrophil % 66.7 42.7 - 76.0 % 04/07/2025 9:[facility] Lymphocyte % 20.5 19.6 - 45.3 % 04/07/2025 9:50 [facility] Monocyte % 9.8 5.0 - 12.0 % 04/07/2025 9:50 AM EDT [facility] Eosinophil % 2.1 0.3 - 6.2 % 04/07/2025 9:50 [facility] Basophil % 0.3 0.0 - 1.5 % 04/07/2025 9:50 AM EDT [facility] Immature Grans % 0.6(H) 0.0 - 0.5 % 04/07/2025 9:50 AM EDT [facility] Neutrophils, Absolute 5.75 1.70 - 7.00 10*3/mm3 04/07/2025 9:50 AM EDT [facility] Lymphocytes, Absolute 1.77 0.70 - 3.10 10*3/mm3 04/07/2025 9:50 AM EDT [facility] Monocytes, Absolute 0.85 0.10 - 0.90 10*3/mm3 04/07/2025 9:50 AM EDT [facility] Eosinophils, Absolute 0.18 [...] Final Resul t [facility]
[address] [place] [address], * (ABNORMAL) Basic Metabolic Panel (04/07/2025 9:10 AM EDT) [facility] Signature Glucose 112(H) 65 - 99 mg/dL [...] - 5.2 mmol/L 04/07/2025 10:19 AM T [facility] Comment:Specimen hemolyzed. Result may be falsely elevated. Chloride 105 98 - 107 mmol/L 04/07/2025 10:19 AM EDT [facility] CO2 24.8 22.0 - 29.0 mmol/L 04/07/2025 10:19 AM T [facility] Calcium 8.6 8.6 - 10.5 mg/dL 04/07/2025 10:19 AM [facility] BUN/Creatinine Ratio 17.0 7.0 - 25.0 04/07/2025 10:19 AM EDT [facility] Anion Gap 9.2 5.0 - 15.0 mmol/L 04/07/2025 10:19 AM [facility] eGFR 113.2 >60.0 mL/min/1.7 3 04/07/2025 10:19 AM [facility] Blood Venipuncture / Unknown 04/07/2025 9:10 AM EDT 04/07/2025 9:38 AM EDT [facility] - 04/07/2025 10:19 AM EDT [...] BLOOD ORDERABLES Final Resul t [facility]
[address] [place] [address], * MRI Tibia Fibula Right With & [...] [place] 04/07/2025 9:58 AM EDT Workstation ID: [id number] Narrative 04/07/2025 9:58 AM EDT MRI TIBIA [...] [place] 04/07/2025 9:58 AM EDT Workstation ID: [id number] us Sushil Dean Jr., MD IM MRI ORDERABLES Mary Beth l Result * Heparin Anti-Xa (04/07/2025 1:42 AM EDT) Heparin Anti-Xa (UFH) 0.38 0.30 - 0.70 IU/ml 04/07/2025 2:14 AM EDT [facility] Blood Venipuncture / Unknown 04/07/2025 1:42 AM EDT 04/07/2025 1:54 AM EDT Chelsie Velasquezprisca [facility] LAB BLOOD ORDERABLES Final R esult Performing Organization Address [facility] Co de Phone Number [facility]
[address] [place] [address], * Heparin Anti-Xa (04/06/2025 7:16 PM EDT) Pathologist [facility] Heparin Anti-Xa (UFH) 0.33 0.30 - 0.70 IU/ml 04/06/2025 7:50 PM EDT [facility] Blood Venipuncture / Unknown 04/06/2025 7:16 PM EDT 04/06/2025 7:35 PM EDT Cherri Beatty [facility] LAB BLOOD ORDERABLES Final Res ult Performing Organization Address [facility] de Phone Number [facility]
[address] [place] [address], [place] [phone] * Potassium (04/06/2025 7:16 PM EDT) Pathologist [facility] Potassium 4.0 3.5 - 5.2 mmol/L 04/06/2025 7:53 PM EDT [facility] Blood Venipuncture / Unknown 04/06/2025 7:16 PM EDT 04/06/2025 7:35 PM EDT Jason Álvarez DO LAB BLOOD ORDERABLES Final Resul t [facility]
[address] [place] [address], * (ABNORMAL) Heparin Anti-Xa (04/06/2025 12:36 PM EDT) Heparin Anti-Xa (UFH) 0.24(L) 0.30 - 0.70 IU/ml 04/06/2025 1:23 PM EDT [facility] Blood Venipuncture / Unknown 04/06/2025 12:36 PM EDT 04/06/2025 1:07 PM EDT Una LundbergD LAB BLOOD ORDERABLES Final R esult Performing Organization Address City/[facility]/ZIP Co de Phone Number [facility]
[address] [place] [address], * (ABNORMAL) Heparin Anti-Xa (04/06/2025 3:42 AM EDT) Heparin Anti-Xa (UFH) 0.25(L) 0.30 - 0.70 IU/ml 04/06/2025 5:30 AM EDT [facility] Blood Venipuncture / Unknown 04/06/2025 3:42 AM EDT 04/06/2025 4:59 AM EDT Chelsie Turpin [facility] LAB BLOOD ORDERABLES Final R esult [facility]
[address] [place] [address], * (ABNORMAL) Basic Metabolic Panel (04/06/2025 3:42 [...] >60.0 mL/min/1.7 3 04/06/2025 5:59 AM T [facility] Blood Venipuncture / Unknown 04/06/2025 3:42 AM EDT 04/06/2025 5:20 AM EDT [facility] - 04/06/2025 5:59 AM EDT [...] Final Resul t [facility]
[address] [place] [address], * (ABNORMAL) CBC Auto Differential (04/06/2025 3:41 AM EDT) WBC 10.86(H) 3.40 - 10.80 10*3/mm3 04/06/2025 5:04 AM EDT [facility] RBC 5.08 4.14 - 5.80 10*6/mm3 04/06/2025 5:04 AM EDT [facility] Hemoglobin 13.9 13.0 - 17.7 g/dL 04/06/2025 5:04 AM EDT [facility] Hematocrit 43.7 37.5 - 51.0 % 04/06/2025 5:04 AM EDT [facility] MCV 86.0 79.0 - 97.0 fL 04/06/2025 5:04 AM EDT [facility] MCH 27.4 26.6 - 33.0 pg 04/06/2025 5:04 AM EDT [facility] MCHC 31.8 31.5 - 35.7 g/dL 04/06/2025 5:04 AM EDT [facility] RDW 12.8 12.3 - 15.4 % 04/06/2025 5:04 AM EDT [facility] RDW-SD 40.0 37.0 - 54.0 fl 04/06/2025 5:04 AM EDT [facility] MPV 11.7 6.0 - 12.0 fL 04/06/2025 5:04 AM EDT [facility] Platelets 115(L) 140 - 450 10*3/mm3 04/06/2025 5:04 AM EDT [facility] Neutrophil % 65.3 42.7 - 76.0 % 04/06/2025 5:04 AM EDT [facility] Lymphocyte % 20.5 19.6 - 45.3 % 04/06/2025 5:[facility] Monocyte % 11.8 5.0 - 12.0 % 04/06/2025 5:04 AM EDT [facility] Eosinophil % 1.8 0.3 - 6.2 % 04/06/2025 5:04 AM EDT [facility] Basophil % 0.3 0.0 - 1.5 % 04/06/2025 5:04 AM EDT [facility] Immature Grans % 0.3 0.0 - 0.5 % 04/06/2025 5:04 AM EDT [facility] Neutrophils, Absolute 7.09(H) [...] Final Resul t [facility]
[address] [place] [address], * Heparin Anti-Xa (04/05/2025 8:43 PM EDT) Heparin Anti-Xa (UFH) 0.38 0.30 - 0.70 IU/ml 04/05/2025 9:09 PM EDT [facility] Blood Venipuncture / Unknown 04/05/2025 8:43 PM EDT 04/05/2025 8:55 PM EDT Cherri Beatty [facility] LAB BLOOD ORDERABLES Final Res ult [facility]
[address] [place] [address], * CK (04/05/2025 12:15 PM EDT) Creatine Kinase 140 20 - 200 U/L 04/05/2025 1:31 PM EDT [facility] Blood Venipuncture / Unknown 04/05/2025 12:15 PM EDT 04/05/2025 1:03 PM EDT Carlton Mead MD LAB BLOOD ORDERABLES Final R esult [facility]
[address] [place] [address], * (ABNORMAL) Heparin Anti-Xa (04/05/2025 12:15 PM EDT) Heparin Anti-Xa (UFH) 0.17(L) 0.30 - 0.70 IU/ml 04/05/2025 1:21 PM EDT [facility] Blood Venipuncture / Unknown 04/05/2025 12:15 PM EDT 04/05/2025 1:04 PM EDT Una Perla PharmD LAB BLOOD ORDERABLES Final R esult Performing Organization Address [facility] Co de Phone Number [facility]
[address] [place] [address], * (ABNORMAL) aPTT (04/05/2025 3:54 AM EDT) [facility] PTT 35.3(L) 60.0 - 90.0 seconds [...] esult Performing Organization Address [facility] Co de Phone Number [facility]
[address] [place] [address], * Heparin Anti-Xa (04/05/2025 3:54 AM EDT) [facility] Heparin Anti-Xa (UFH) 0.30 0.30 - 0.70 IU/ml 04/05/2025 4:32 AM EDT [facility] Blood Venipuncture / Unknown 04/05/2025 3:54 AM EDT 04/05/2025 4:15 AM EDT Una Minda PharmD LAB BLOOD ORDERABLES Final R esult Performing Organization Address [facility] Co de Phone Number [facility]
[address] [place] [address], [place] [phone] * (ABNORMAL) CBC Auto Differential (04/05/2025 3:54 AM EDT) WBC 11.18(H) 3.40 - 10.80 10*3/mm3 [facility] RBC 5.00 4.14 - 5.80 10*6/mm3 04/05/2025 4:[facility] Hemoglobin 13.9 13.0 - 17.7 g/dL 04/05/2025 4:[facility] Hematocrit 42.4 37.5 - 51.0 % 04/05/2025 4:20 AM EDT [facility] MCV 84.8 79.0 - 97.0 fL 04/05/2025 4:[facility] MCH 27.8 26.6 - 33.0 pg 04/05/2025 4:20 AM [facility] MCHC 32.8 31.5 - 35.7 g/dL 04/05/2025 4:20 AM [facility] RDW 12.9 12.3 - 15.4 % 04/05/2025 4:20 AM [facility] RDW-SD 39.7 37.0 - 54.0 fl 04/05/2025 4:20 AM [facility] MPV 10.2 6.0 - 12.0 fL 04/05/2025 4:20 AM [facility] Platelets 160 140 - 450 10*3/mm3 04/05/2025 4:20 AM [facility] Neutrophil % 73.5 42.7 - 76.0 % 04/05/2025 4:20 AM [facility] Lymphocyte % 14.0(L) 19.6 - 45.3 % 04/05/2025 4:[facility] Monocyte % 11.0 5.0 - 12.0 % 04/05/2025 4:[facility] Eosinophil % 0.8 0.3 - 6.2 % 04/05/2025 4:20 [facility] Basophil % 0.3 0.0 - 1.5 % 04/05/2025 4:20 AM EDT [facility] Immature Grans % 0.4 0.0 - 0.5 % 04/05/2025 4:20 AM EDT [facility] Neutrophils, Absolute 8.23(H) 1.70 - 7.00 10*3/mm3 04/05/2025 4:20 AM EDT [facility] Lymphocytes, Absolute 1.56 0.70 - 3.10 10*3/mm3 04/05/2025 4:20 AM EDT [facility] Monocytes, Absolute 1.23(H) 0.10 - 0.90 10*3/mm3 04/05/2025 4:20 AM EDT [facility] Eosinophils, Absolute 0.09 0.00 - 0.40 10*3/mm3 04/05/2025 4:20 AM EDT [facility] Basophils, Absolute 0.03 0.00 - 0.20 10*3/mm3 04/05/2025 4:20 AM EDT [facility] Immature Grans, Absolute 0.04 0.00 - 0.05 10*3/mm3 04/05/2025 4:20 AM EDT [facility] nRBC 0.0 0.0 - 0.2 /100 WBC 04/05/2025 4:20 AM T [facility] Blood Venipuncture / Unknown 04/05/2025 3:54 AM EDT 04/05/2025 4:16 AM EDT Una Perla PharmD LAB BLOOD ORDERABLES Final R esult [facility]
[address] [place] [address], * (ABNORMAL) Basic Metabolic Panel (04/05/2025 3:54 AM EDT) Glucose 152(H) 65 - 99 mg/dL 04/05/2025 4:40 AM EDT [facility] BUN 17.3 6.0 - 20.0 mg/dL 04/05/2025 4:40 AM [facility] Creatinine 0.92 0.76 - 1.27 mg/dL 04/05/2025 4:40 AM T [facility] Sodium 136 136 - 145 mmol/L 04/05/2025 4:40 AM [facility] Potassium 3.9 3.5 - 5.2 mmol/L 04/05/2025 4:40 AM EDT [facility] Chloride 103 98 - 107 mmol/L 04/05/2025 4:40 AM T [facility] CO2 24.0 22.0 - 29.0 mmol/L 04/05/2025 4:40 AM [facility] Calcium 7.8(L) 8.6 - 10.5 mg/dL 04/05/2025 4:40 AM [facility] BUN/Creatinine Ratio 18.8 7.0 - 25.0 04/05/2025 4:40 AM T [facility] Anion Gap 9.0 5.0 - 15.0 mmol/L 04/05/2025 4:40 AM [facility] eGFR 105.2 >60.0 mL/min/1.7 3 04/05/2025 4:40 AM [facility] Blood Venipuncture / Unknown 04/05/2025 3:54 AM EDT 04/05/2025 4:15 AM EDT [facility] - 04/05/2025 4:40 AM [...] sult Performing Organization Address [facility]/ZIP Co de Phone Number [facility]
[address] [place] [address], * (ABNORMAL) aPTT (04/05/2025 12:18 AM EDT) [...] esult Performing Organization Address [facility] Co de Phone Number [facility]
[address] [place] [address], * (ABNORMAL) Protime-INR (04/05/2025 12:18 AM EDT) Protime 15.9(H) 12.2 - 15.3 Seconds 04/05/2025 12:53 AM EDT [facility] INR 1.19(H) 0.89 - 1.12 04/05/2025 12:53 AM EDT [facility] Blood Venipuncture / Unknown 04/05/2025 12:18 AM EDT 04/05/2025 12:37 AM EDT Una Perla PharmD LAB BLOOD ORDERABLES Final R esult Performing Organization Address City/[facility]/ZIP Co de Phone Number [facility]
[address] [place] [address], * Heparin Anti-Xa (04/05/2025 12:18 AM EDT) Heparin Anti-Xa (U[facility]) 0.39 0.30 - 0.70 IU/ml 04/05/2025 12:54 AM EDT [facility] Blood Venipuncture / Unknown 04/05/2025 12:18 AM EDT 04/05/2025 12:37 AM EDT Una Perla PharmD LAB BLOOD ORDERABLES Final R esult [facility]
[address] [id number], * MRI Tibia Fibula Right With & [...] MD 04/04/2025 11:00 PM EDT Workstation ID: [id number] Narrative 04/04/2025 11:00 PM EDT MRI TIBIA [...] evidence of focal atrophy. Procedure Note Leigh Jonse MD - 04/04/2025 MRI TIBIA FIBULA RIGHT [...] MD 04/04/2025 11:00 PM EDT Workstation ID: [id number] Leonora Shepherd MD IMG MRI ORDERABLES Final Resu lt * POC Creatinine (04/04/2025 2:49 PM EDT) [facility] Creatinine 1.10 0.60 - 1.30 mg/dL 04/07/2025 7:14 PM EDT [facility] Comment:Serial Number: [id number] [id number] Venous Blood 04/04/2025 2:49 PM EDT 04/07/2025 7:14 PM EDT Jason Álvarez DO POINT OF CARE TEST ORDERABLES Fi nal Result [facility] [place] [address], * (ABNORMAL) CBC Auto Differential (04/04/2025 2:47 PM EDT) [facility] WBC 12.72(H) 3.40 - 10.80 10*3/mm3 [...] Fin al Result [facility]
[address] [place] [address], * (ABNORMAL) C-reactive Protein (04/04/2025 2:47 PM EDT) C-Reactive Protein 8.57(H) 0.00 - 0.50 mg/dL 04/04/2025 3:26 PM EDT [facility] Blood Venipuncture / Unknown 04/04/2025 2:47 PM EDT 04/04/2025 2:52 PM EDT Mario Crowley LAB BLOOD ORDERABLES Fin al Result [facility]
[address] [place] [address], * (ABNORMAL) Sedimentation Rate (04/04/2025 2:47 PM EDT) Sed Rate 51(H) 0 - 15 mm/hr 04/04/2025 3:06 PM EDT [facility] Blood Venipuncture / Unknown 04/04/2025 2:47 PM EDT 04/04/2025 2:52 PM EDT Mario Crowley DO LAB BLOOD ORDERABLES Fin al Result [facility]
[address] [place] [address], * Comprehensive Metabolic Panel (04/04/2025 2:47 PM [...] - 5.2 mmol/L 04/04/2025 3:26 PM EDT [facility] Chloride 100 98 - 107 mmol/L 04/04/2025 3:26 PM EDT [facility] CO2 25.3 22.0 - 29.0 mmol/L 04/04/2025 3:26 PM EDT [facility] Calcium 8.6 8.6 - 10.5 mg/dL 04/04/2025 3:26 PM EDT [facility] Total Protein 7.3 6.0 - 8.5 g/dL 04/04/2025 3:26 PM EDT [facility] Albumin 4.1 3.5 - 5.2 g/dL 04/04/2025 3:26 PM EDT [facility] ALT (SGPT) 26 1 - 41 U/L 04/04/2025 3:26 PM EDT [facility] AST (SGOT) 25 1 - 40 U/L 04/04/2025 3:26 PM EDT [facility] Alkaline Phosphatase 106 39 - 117 U/L 04/04/2025 3:26 PM EDT [facility] Total Bilirubin 1.0 0.0 - 1.2 mg/dL 04/04/2025 3:26 PM EDT [facility] Globulin 3.2 gm/dL 04/04/2025 3:26 PM EDT [facility] Comment:Calculated Result A/G Ratio 1.3 g/dL 04/04/2025 3:26 PM EDT [facility] BUN/Creatinine Ratio 19.5 7.0 - 25.0 04/04/2025 3:26 PM EDT [facility] Anion Gap 10.7 5.0 - 15.0 mmol/L 04/04/2025 3:26 PM EDT [facility] eGFR 102.5 >60.0 mL/min/1.7 3 04/04/2025 3:26 PM EDT [facility] Blood Venipuncture / Unknown 04/04/2025 2:47 PM EDT 04/04/2025 2:52 PM EDT [facility] - 04/04/2025 3:26 PM EDT [...] Fin al Result [facility]
[address] [place] [address], documented in this encounter Visit Diagnoses Diagnosis [...] BPA Driven Protocol Open Order & [facility] Electrolyte Replacement Protocol Algorithm to View Details [...] BPA Driven Protocol Open Order & [facility] Electrolyte Replacement Protocol Algorithm to View Details [...] BPA Driven Protocol [employer] [facility] Electrolyte Replacement Protocol Algorithm to View Details [...] disposal. 830 (Given - Provider: Amber Salazar, BEAM BUILDER HELPER)1943 (Given - Provider: Anahy Marcelino, KELL)2129 (Canceled [...] Dillon RN) 2030 (Given - Provider: Alberto Dillno RN) sodium chloride 0.9 % flush 10 [...] Continuous Medication Order 04/09/2025 04/10/2025 04/11/2025 heparin 64083 units/250 mL (100 units/mL) in 0.45 % NaCl infusion (CANCELED) 18 Units/kg/hr 134 kg (24.12 mL/hr, rounded to 24.1 mL/hr), Intravenous, Titrated, Starting on 04/05/25 at 0045, Pharmacy dosing - VTE (PE/DVT) - Boluses (No initial bolus), Indications: DVT/PE (active thrombosis) 0614 (New Bag - Provider: Bob Rosenberg RN)0712 (Handoff - Provider: oBb Rosenberg RN)1633 (New Bag - Provider: Shirley [...] BPA Driven Protocol Open [employer] [facility] Electrolyte Replacement Protocol Algorithm to View Details [...] BPA Driven Protocol Open [employer] [facility] Electrolyte Replacement Protocol Algorithm to View Details [...] documented as of this encounter Care Teams Sales Assistant Entertainment [employer] Relationship Specialty Start Date End Date Provider, [place] [address] PCP - General 05/09/23 documented as of this encounter
--- OUTSIDE RECORDS SUMMARY | 2025-04-07 20:36 | XMS_ITS | Encounter Summary ---
Author Organization [facility] Address [address] [place] [address] Care Team Providers Care Taxi Servicer Name Role Phone Provider, No Known Primary Care Provider Unavail able Reason for Visit * Auth/Cert Specialty Diagnoses / Procedures Referred By Bulmaro muniz Referred To Contact Diagnoses Right BKA infection Referral ID Status Reason Start Date Expiration Date Visits Re quested Visits Authorized [id number] 1 1 Encounter Details Date Type Department Care Team (Late st Contact Info) Description 04/07/2025 8:36 PM EDT Anesthesia Event [facility] OR [address] [place] [address] Luci Alonso DO [address] [place] [address] Anesthesia Record Procedure Summary Procedure Name Responsible [...] injection 80 mcg/20 mL 32 mcg phenylephrine (ROAMRIO-SYNEPHRIN E) 50 mg in sodium chloride 0.9 [...] = 0.6 oz pur e alcohol) [facility] Utilities Answer Date Recorded In the past 12 months has [employer], gas, oil, or water [employer] threatened to shut off services in your [...] or training? Not on file Preferred Language Bahraini 04/07/2025 Sex and Gender Information Value Date [...] PACU on O2NC, breathing comfortably. Report to PRINTING MACHINE MECHANIC at bedside. VSS. * Anesthesia Procedure Notes [...] Musculoskeletal Abdominal Substance History - negative use SUPERVISOR COSTUMING Other ROS/Med Hx Other: Eliquis 04/04/25 Hgb 14.7 k 43.2 Factor 2 on eliquis +gerd Anesthesia Plan ASA 3 - emergent general Rapid sequence (Risks and benefits of general anesthesia discussed with patient (including [place], CVA, , recall,aspiration, oropharyngeal/dental damage), questions answered, agreeable to proceed. ) intravenous induction Anesthetic plan, risks, benefits, and alternatives have been provided, discussed and informed consent has been obtained with: patient. Plan discussed with SENIOR STACK ENGINEER. CODE STATUS: Code Status (Patient has [...] documented as of this encounter Care Teams Taxi Servicer Relationship Specialty Start Date End Date Provider, No Known [facility] [place] [address] PCP - General 05/09/23 documented as of this encounter
--- OUTSIDE RECORDS SUMMARY | 2025-04-08 14:45 | XMS_ITS | Encounter Summary ---
[facility] Address [address] [place] [address] Care Team Providers Care Welder Assistant Name Role Phone Provider, No Known Primary Care Provider Unavail able Reason for Visit * Reason Comments Leg Swelling * Auth/Cert Specialty Diagnoses / Procedures Referred By Contac t Referred To Contact Diagnoses Right BKA infection Referral ID Status Reason Start Date Expiration Date Visits Re quested Visits Authorized [id number] 1 1 Encounter Details Date Type Department Care Team (Late st Contact Info) Description 04/08/2025 2:45 PM EDT - 04/08/2025 4:04 PM EDT Surgery [facility] OR [address] [place] [address] Sushil Dean Jr., MD [address] [place] [address] [address] [place] [id number] LEG DEBRIDEMENT AND IRRIGATION Social History Tobacco Use Types Packs/Day Years Used Date Smoking Tobacco: Never Smokeless Tobacco: Never Tobacco Cessation:Counseling Given: Not Answered Alcohol Use Standard Drinks/Week Comments Not Currently 0 (1 standard drink = 0.6 oz pur e alcohol) [facility] Utilities Answer Date Recorded In the past 12 months has [employer] electric, gas, oil, or water company threatened [...] or training? Not on file Preferred Language [place] Islander 04/07/2025 Sex and Gender Information Value [...] 2:25 PM EDT Cherri Grimm RN * [place] Suicide Severity Rating Scale (Screener/Recent Self-Report) Question [...] the original note were not included. [facility] DISCHARGE SUMMARY Patient Name: [...] Date/Time Wound Culture - Swab, Leg, Right [[id number]] (Abnormal) (Susceptibility) Collected: 04/07/252106 Lab Status: Final [...] Units Date/Time FL C Arm During Surgery [[id number]] Resulted: 04/07/252137 Updated: 04/07/252137 Narrative: This procedure was auto-finalized with no dictation required. MRI Tibia Fibula Right With & Without Contrast [[id number]] Collected: 04/07/25 0938 Updated: 04/07/25 1001 Narrative: [...] Buenrostro 04/07/2025 9:58 AM EDT Workstation ID: [id number] MRI Tibia Fibula Right With & Without Contrast [[id number]] Collected: 04/04/252256 Updated: 04/04/252302 Narrative: MRI TIBIA [...] represent a small area of phlegmonous change ([id number] image 10) measuring approximately 1.6 cm which [...] MD 04/04/2025 11:00 PM EDT Workstation ID: [id number] Pending Labs Order Current Status Fungus Culture [...] Male) Date of 1980 Social Security Number [id number] [place] [address] [place] [address] Cheondoism Unknown Marital Status Unknown Admission Date 04/04/2025 Admission Type Emergency Admitting Provider Jadyn Richardson DO Attending Provider Jadyn Richardson DO Department, Room/Bed [facility] 5G, S565/1 Discharge [...] Plan Insurance Group Employer/Plan Group [place] [id number] Payor Plan Address Payor Plan Phone Number Payor Plan Fax Number Effective Dates [employer] [address] [address] 08/10/2023 - None Entered [facility] [address] Subscriber Name Subscriber Date Member ID WON DENNIS 1980 [id number] Emergency Contacts Extension Worker (Rel.) Home Phone Work Phone Mobile Phone Avril Dennis (Spouse) -- -- [phone] Robert Hackett (Relative) -- -- [phone] [facility] 5G [address] [facility] [address] Patient: ROOM: [facility] Won Dennis [address] [facility] [place] [address] : 1980 SSN: [id number] Sex: M PCP: Provider, No Known Emergency Contact Information Name Relation Home Work Mobile Avril Dennis Spouse [phone] Other Contacts Name Relation Home Work Mobile Robert Hackett Relative [phone] INSURANCE PAYOR [employer]AN [employer] # SUBSCRIBER ID Primary: Secondary: MEDICARE [employer] [id number] Admitting Diagnosis: Right BKA infection [T87.43] Order Date: Apr 09, 2025 Case Management [employer] Administrator Consult (Order ID: [id number]) Diagnosis: Priority: Routine Expected Date: Expiration Date: [...] INFECTIOUS DISEASE Progress Note Won Dennis 1980 [id number] Date of Consult: 04/10/2025 Admission Date: 04/04/2025 [...] Jr., MD, 20 mg at 04/09/25906 heparin 42957 units/250 mL (100 units/mL) in 0.45 % [...] vancomycin 2750 mg/500 mL 0.9% NS IVPB ([facility]) Ordering Provider: Mario Crowley, DO [...] Units Date/Time FL C Arm During Surgery [[id number]] Resulted: 04/07/252137 Updated: 04/07/252137 Narrative: This procedure was auto-finalized with no dictation required. MRI Tibia Fibula Right With & Without Contrast [[id number]] Collected: 04/07/2538 Updated: 04/07/25 1001 Narrative: MRI [...] Buenrostro 04/07/2025 9:58 AM EDT Workstation ID: [id number] Impression: Recurrent Right BKA stump abscess/cellulitis- this [...] discussed his disposition with the [facility] today. I will sign off Outpatient orders: 1. Outpatient intravenous antibiotic therapy: Daptomycin 800 mg IV daily to be supplied by [facility] 2. Home health to perform [...] Creation Time: 04/10/251323 Signed Expand All [facility] Medicine Services PROGRESS NOTE Patient Name: [...] Date/Time Wound Culture - Swab, Leg, Right [[id number]] (Abnormal) (Susceptibility) Collected: 04/07/252106 Lab Status: Final [...] Row Name 04/06/25 1143 Sit-Stand Transfer Sit-Stand Travis (Transfers) modified independence - Comment, (Sit-Stand Transfer) Pt stood from recliner. Not holding onto walker, pt able to pull his pants up while balancing on his one leg. -LM Row Name 04/06/25 1143 Gait/Stairs (Locomotion) Travis Level (Gait) modified independence - Distance in [...] Motion bilateral lower extremity ROM WFL -LM [facility] Name 04/06/25 1145 Strength Comprehensive (MMT) General Manual Muscle Testing (MMT) Assessment no strength deficits identified BLEs -LM [facility] Name 04/06/25 1145 Balance Balance [...] home at d/c. PT signing off. -LM [facility] Name 04/06/25 1146 Therapy Assessment/Plan (PT) Criteria for Skilled Interventions Met (PT) no;no problems identified which require skilled intervention -LM Therapy Frequency (PT) evaluation only -LM Predicted Duration of Therapy Intervention (PT) Eval Only -LM [facility] Name 04/06/25 1146 Vital Signs Pretreatment Heart Rate (beats/min) 86 -LM Posttreatment Heart Rate (beats/min) 96 -LM Pre SpO2 (%) 95 -LM O2 Delivery Pre Treatment room air -LM Post SpO2 (%) 96 -LM O2 Delivery Post Treatment room air -LM Pre Patient Position Sitting -LM Post Patient Position Sitting -LM [facility] Name 04/06/25 1146 Positioning and [...] Nurse Physical Therapy Education Title: PT OT SAGGER FILLER Therapies (Done) Topic: Physical Therapy (Done) Point: Mobility training (Done) Learning Progress Summary Patient Acceptance, E, VU,DU by at 04/06/2025 1147 Point: Precautions (Done) Learning Progress Summary Patient Acceptance, E, VU,DU by at 04/06/2025 1147 User Cabrera Initials Effective Dates Name Provider Type [facility] 01/24/25 - Susan Cavazos, [...] Description Service Date Service Provider Modifiers Qty [id number] PT EVAL LOW COMPLEXITY 3 04/06/2025 Susan [...] the original note were not included. [facility] PROGRESS NOTE Patient Name: [...] Date/Time Wound Culture - Swab, Leg, Right [[id number]] (Abnormal) (Susceptibility) Collected: 04/07/252106 Lab Status: Final [...] INFECTIOUS DISEASE Progress Note Won Dennis 1980 [id number] Date of Consult: 04/10/2025 Admission Date: 04/04/2025 [...] IRRIGATION; Surgeon: Sushil Dean Jr., MD; Location: [facility] OR; Service: Orthopedics; Laterality: Right; PLACEMENT OF [...] Jr., MD, 20 mg at 04/09/25906 heparin 82037 units/250 mL (100 units/mL) in 0.45 % [...] Units Date/Time FL C Arm During Surgery [[id number]] Resulted: 04/07/252137 Updated: 04/07/252137 Narrative: This procedure was auto-finalized with no dictation required. MRI Tibia Fibula Right With & Without Contrast [[id number]] Collected: 04/07/25 0938 Updated: 04/07/25 1001 Narrative: [...] Chitra 04/07/2025 9:58 AM EDT Workstation ID: [id number] Impression: Recurrent Right BKA stump abscess/cellulitis- this [...] discussed his disposition with the pharmacist at [facility] today. I will sign off Outpatient orders: 1. Outpatient intravenous antibiotic therapy: Daptomycin 800 mg IV daily to be supplied by [facility] 2. Home health to perform [...] MD 04/10/2025 07:38 EDT * Larisa Hamilton, [facility] - 04/10/2025 7:17 [...] 0500 0.30 11 -- -- 11 1200 [facility] 04/05 1215 0.17 11 1999 [...] the original note were not included. [facility] PROGRESS NOTE Patient Name: [...] Date/Time Wound Culture - Swab, Leg, Right [[id number]] (Abnormal) Collected: 04/07/252106 Lab Status: Preliminary result [...] Jason Álvarez DO 04/09/25 * Larisa Hamilton, [facility] - 04/09/2025 11:36 [...] 0500 0.30 11 -- -- 11 1200 [facility] 04/05 1215 0.17 11 1999 [...] INFECTIOUS DISEASE Progress Note Won Dennis 1980 [id number] Date of Consult: 04/09/2025 Admission Date: 04/04/2025 [...] [facility]; Service: Orthopedics; Laterality: Right; PLACEMENT OF WOUND VAC Right 04/07/2025 Procedure: WOUND VACUUM ASSISTED CLOSURE; Surgeon: Sushil Dean Jr., MD; Location: [facility]; Service: Orthopedics; Laterality: Right; History reviewed. [...] MD, 20 mg at 04/08/25 0800 heparin 75636 units/250 mL (100 units/mL) in 0.45 % [...] Units Date/Time FL C Arm During Surgery [[id number]] Resulted: 04/07/252137 Updated: 04/07/252137 Narrative: This procedure was auto-finalized with no dictation required. MRI Tibia Fibula Right With & Without Contrast [[id number]] Collected: 04/07/25937 Updated: 04/07/25 1001 Narrative: MRI [...] Chitra 04/07/2025 9:58 AM EDT Workstation ID: [id number] Impression: Recurrent Right BKA stump abscess/cellulitis- this [...] the original note were not included. [facility] PROGRESS NOTE Patient Name: [...] Buenrostro 04/07/2025 9:58 AM EDT Workstation ID: [id number] I have personally reviewed the therapy plans: [...] Jason DO Preeti 04/08/25 * Larisa Hamilton, [facility] - 04/08/2025 11:48 [...] INFECTIOUS DISEASE Progress Note Won Dennis 1980 [id number] Date of Consult: 04/08/2025 Admission Date: 04/04/2025 [...] IRRIGATION; Surgeon: Sushil Dean Jr., MD; Location: [facility] OR; Service: Orthopedics; Laterality: Right; PLACEMENT [...] Jr., MD, 20 mg at 04/07/25950 heparin 32535 units/250 mL (100 units/mL) in 0.45 % [...] Units Date/Time FL C Arm During Surgery [[id number]] Resulted: 04/07/252137 Updated: 04/07/252137 Narrative: This procedure was auto-finalized with no dictation required. MRI Tibia Fibula Right With & Without Contrast [[id number]] Collected: 04/07/25 0938 Updated: 04/07/25 1001 Narrative: [...] Buenrostro 04/07/2025 9:58 AM EDT Workstation ID: [id number] Impression: Right BKA stump cellulitis- s/p BKA with multiple surgical interventions with Known MRSA 05/09/2025. (Treated by ID in [place] Dr. Harris). Dr. Torres treated him with [...] the original note were not included. [facility] PROGRESS NOTE Patient Name: [...] Buenrostro 04/07/2025 9:58 AM EDT Workstation ID: [id number] I have personally reviewed the therapy plans: [...] 18 Units/kg/hr, Last Rate: 18 Units/kg/hr (04/07/25 0128) Pharmacy to Dose Heparin, PRN Meds:. acetaminophen [...] Jason Álvarez DO 04/07/25 * Larisa Hamilton [facility] - 04/07/2025 11:56 [...] INFECTIOUS DISEASE Progress Note Won Dennis 1980 [id number] Date of Consult: 04/07/2025 Admission Date: 04/04/2025 [...] Application, 1 Application, Topical, Q12H, Ayah Valentin, EDUCATION SPEC, 1 Application at 04/06/252101 DAPTOmycin (CUBICIN) 800 [...] MD, 20 mg at 04/06/25 0900 heparin 74937 units/250 mL (100 units/mL) in 0.45 % [...] With & Without Contrast - In process [[id number]] Resulted: 04/07/25828 Updated: 04/07/25828 This result has not been signed. Information might be incomplete. 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 (Treated by ID in [place] Dr. Harris). Dr. Torres treated him with [...] mg Daily 04/05/2025 -- Route: Oral heparin 10290 units/250 mL (100 units/mL) in 0.45 % [...] -- Admin Instructions: Open Order & Select [facility] Electrolyte Replacement Protocol Algorithm to [...] -- Admin Instructions: Open Order & Select [facility] Electrolyte Replacement Protocol Algorithm to [...] 0500 0.30 11 -- -- 11 1200 [facility] 04/05 1215 0.17 11 1999 +3 14 2100 DW RN Pump checked 04/05 2043 0.38 14 -- -- 14 0300 [facility] 04/06 0530 0.25 14 -- +2 16 1200 LU Mary 04/06 1236 0.24 16 -- +2 18 1999 LU Beatty [facility] 04/06/2025 13:48 EDT * Jason Álvarez DO - 04/06/2025 12:47 PM EDT Images from the original note were not included. [facility] PROGRESS NOTE Patient Name: [...] MD 04/04/2025 11:00 PM EDT Workstation ID: [id number] I have personally reviewed the therapy plans: [...] mg Daily 04/05/2025 -- Route: Oral heparin 80539 units/250 mL (100 units/mL) in 0.45 % [...] INFECTIOUS DISEASE follow up. Won Dennis 1980 [id number] Date of Consult: 04/06/2025 Admission Date: 04/04/2025 [...] MD, 20 mg at 04/06/25 0900 heparin 73971 units/250 mL (100 units/mL) in 0.45 % [...] Tibia Fibula Right With & Without Contrast [[id number]] Collected: 04/04/252256 Updated: 04/04/252302 Narrative: MRI TIBIA [...] represent a small area of phlegmonous change (zcyrqt56 image 10) measuring approximately 1.6 cm which [...] MD 04/04/2025 11:00 PM EDT Workstation ID: [id number] Impression: Right BKA stump cellulitis- s/p BKA with multiple surgical interventions with Known MRSA 05/09/2025. (Treated by ID in [place] Dr. Harris). Dr. Torres treated him with [...] MD 04/06/2025 16:00 EDT * Cherri Beatty, [facility] - 04/05/2025 3:01 PM EDT [...] the original note were not included. [facility] PROGRESS NOTE Patient Name: [...] MD 04/04/2025 11:00 PM EDT Workstation ID: [id number] I have personally reviewed the therapy plans: [...] the original note were not included. [facility] HISTORY AND PHYSICAL Patient [...] MD 04/04/2025 11:00 PM EDT Workstation ID: [id number] Assessment & Plan Assessment & Plan Won [...] 4FR PICC placed by Rhoda Bonner RN [facility], tip verified by 3CG see LDA. * Sushil Dean Jr., MD - 04/05/2025 8:07 AM EDTAssociated Order(s): IP CONSULT TO ORTHOPEDIC SURGERY [facility], [facility] [address] [facility] 250 Orthopedic Consult Patient: Won Dennis Date of Admission: 04/04/2025 4:10 PM Date of : 1980 Attending Physician: Jason Álvarez DO Consulting Physician: Sushil Dean Jr, MD Chief Complaint: 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 male admitted to [facility] with Right BKA infection [T87.43]. He has [...] was evaluated in the emergency department in [place], was discharged with instructions for follow-up. He [...] tablet by mouth Daily. 04/03/2025 Morning Lactobacillus-Inulin ([facility] [employer] [facility]) capsule Take 200 mg by [...] osteomyelitis. No knee joint effusion. Electronically Signed: Leihg Jones MD 04/04/2025 11:00 PM EDT Workstation ID: [id number] Assessment: Right BKA infection 44-year-old male with [...] DISEASE CONSULT/INITIAL HOSPITAL VISIT Won Dennis 1980 [id number] Date of Consult: 04/05/2025 Admission Date: 04/04/2025 [...] MD, 20 mg at 04/05/25 0916 heparin 85956 units/250 mL (100 units/mL) in 0.45 % [...] Tibia Fibula Right With & Without Contrast [[id number]] Collected: 04/04/252256 Updated: 04/04/252302 Narrative: MRI TIBIA [...] represent a small area of phlegmonous change (mdeghq46 image 10) measuring approximately 1.6 cm which [...] MD 04/04/2025 11:00 PM EDT Workstation ID: [id number] Impression: Right BKA stump cellulitis- s/p BKA with multiple surgical interventions with Known MRSA 05/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 (Treated by ID in [place] Dr. Harris). Dr. Torres treated him with [...] - 04/08/2025 3:51 PM EDT [facility] OPERATIVE REPORT PATIENT NAME: Won Dennsi DATE OF : 1980 PREOP DIAGNOSIS: Right Right below-knee amputation infection POSTOP DIAGNOSIS: Same. PROCEDURE: Right Right 32640: Secondary closure below-knee amputation SURGEON: Sushil Dean MD OPERATIVE TEAM: Signs Sales Representative: Susi Grullon RN Scrub Person: Mary Paredes Scrub Person Extra: Hortencia Toribio Other: Katt Gotti RN; Charis Neville RN ANESTHETIST: Anesthesiologist: Ulises Hoffman MD SPECIAL DELIVERY CARRIER: Stan Casillas CRNA Student Nurse Chemical Radiation Technician: Karol Albert SRNA ANESTHESIA: Choice ESTIMATED [...] CULTURE (Canceled) Sushil Dean Jr., MD 04/08/25 2846 Description: RIGHT LEG DEEP WOUND FOR CULTURE [...] [facility] [address] [facility] [address] OPERATIVE REPORT PATIENT NAME: Won Dennis DATE OF : 1980 PREOP DIAGNOSIS: Right Right below knee amputation stump infection POSTOP DIAGNOSIS: Same. PROCEDURE: Right Right 42780: Incision and drainage of surgical site infection 90654: Debridement of skin, subcutaneous tissue, muscle 37956: Wound vacuum-assisted closure SURGEON: Sushil Dean MD OPERATIVE TEAM: Signs Sales Representative: Anum Sanchez RN Scrub Person: Hortencia Toribio; Gerald Ivey HOUSE PIPING INSPECTOR: Anesthesiologist: Luci Alonso DO ANESTHESIA: General [...] which was completed with his specialist Dr. Dena. Is been following with him over the [...] this chart in the absence of a heel builder. No orders to display RADIOLOGY: [x] [...] is discharging home with outpatient infusion at [facility]. He has an appointment with [facility] at 8:00 am tomorrow. They will do PICC line dressing changes. CM has spoke with Dena at [facility] today multiple times to get [...] with KELLEE and given themhis Medicare number [id number], she sent it to Admission. CM spoke with Kerri, with [facility], and explained that he had Medicare A and B. However, it will not cover home infusion. It will be $64.00 a day out of packet. Patients can go to the Infusion center at [facility], and it will cover the cost as an outpatient. He will need to go there every day for infusion. They will be able to do the patients' PICC line dressing changes and lab work. CM called [facility] infusion center they can accept patient and start him. He is known for their facility. The Facility will need to run it through his insurance first. CM faxed the orders over to [facility] at [phone]. CM will follow up with them tomorrow at [facility] to make sure they received [...] with patient at bedside today. Wheelchair from [employer] is at bedside. Patient getting PICC line [...] included. Discharge Planning Assessment [facility] Patient Name: Won Dennis Today's Date: 04/07/2025 [...] with family Patient/Family Anticipated Services at Transition casework managerrecreational resort manager Anticipated family or friend will provide [...] for home. CM will order wheelchair through [employer]. He is not current with home health services. PCP is Dr. Jordan. Insurance is [employer] [place]. Patient discharge plan is home with priavte transport. CM will follow for any discharge needs. Final Discharge Disposition Code 01 - home or self-care Continued Care and Services - Admitted Since 04/04/2025 No active coordination exists. Demographic Summary Row Name 04/07/25 1143 General Information Arrived From hospital Preferred Language [place] Islander Functional Status Row Name 04/07/25 1143 [...] CBC Auto Differential (04/11/2025 3:40 AM EDT) WBC 7.87 3.40 - 10.80 10*3/mm3 04/11/2025 4:02 AM EDT [facility] RBC 4.70 4.14 - 5.80 10*6/mm3 04/11/2025 4:02 AM EDT [facility] Hemoglobin 12.8(L) 13.0 - 17.7 g/dL 04/11/2025 4:02 AM EDT [facility] Hematocrit 40.5 37.5 - 51.0 % 04/11/2025 4:02 AM EDT [facility] MCV 86.2 79.0 - 97.0 fL 04/11/2025 4:02 AM EDT [facility] MCH 27.2 26.6 - 33.0 pg 04/11/2025 4:02 AM EDT [facility] MCHC 31.6 31.5 - 35.7 g/dL 04/11/2025 4:02 AM EDT [facility] RDW 12.9 12.3 - 15.4 % 04/11/2025 4:02 AM EDT [facility] RDW-SD 40.5 37.0 - 54.0 fl 04/11/2025 4:02 AM EDT [facility] MPV 9.2 6.0 - 12.0 fL 04/11/2025 4:02 AM [facility] Platelets 267 140 - 450 10*3/mm3 04/11/2025 4:02 AM [facility] Neutrophil % 59.5 42.7 - 76.0 % 04/11/2025 4:02 AM [facility] Lymphocyte % 26.3 19.6 - 45.3 % 04/11/2025 4:02 AM [facility] Monocyte % 9.3 5.0 - 12.0 % 04/11/2025 4:02 AM [facility] Eosinophil % 4.1 0.3 - 6.2 % 04/11/2025 4:02 AM [facility] Basophil % 0.4 0.0 - 1.5 % 04/11/2025 4:02 AM [facility] Immature Grans % 0.4 0.0 - 0.5 % 04/11/2025 4:02 AM [facility] Neutrophils, Absolute 4.69 1.70 - 7.00 10*3/mm3 04/11/2025 4:02 AM [facility] Lymphocytes, Absolute 2.07 0.70 - 3.10 10*3/mm3 04/11/2025 4:02 AM [facility] Monocytes, Absolute 0.73 0.10 - 0.90 10*3/mm3 04/11/2025 4:02 AM [facility] Eosinophils, Absolute 0.32 0.00 - 0.40 10*3/mm3 04/11/2025 4:02 AM [facility] Basophils, Absolute 0.03 0.00 - 0.20 10*3/mm3 04/11/2025 4:02 AM [facility] Immature Grans, Absolute 0.03 0.00 - 0.05 10*3/mm3 04/11/2025 4:02 AM [facility] nRBC 0.0 0.0 - 0.2 /100 WBC 04/11/2025 4:02 AM [facility] Blood Venipuncture / Unknown 04/11/2025 3:40 AM EDT 04/11/2025 3:59 AM EDT Sushil Dean Jr., MD LAB BLOOD ORDERABLES Fi nal Result [facility]
[address] [place] [address], * (ABNORMAL) Comprehensive Metabolic Panel (04/11/2025 3:40 AM EDT) Glucose 108(H) 65 - 99 mg/dL 04/11/2025 4:19 AM EDT [facility] BUN 12.5 6.0 - 20.0 mg/dL 04/11/2025 4:19 AM EDT [facility] Creatinine 0.68(L) 0.76 - 1.27 mg/dL 04/11/2025 4:19 AM EDT [facility] Sodium 140 136 - 145 mmol/L 04/11/2025 4:19 AM EDT [facility] Potassium 3.8 3.5 - 5.2 mmol/L 04/11/2025 4:19 AM EDT [facility] Chloride 105 98 - 107 mmol/L 04/11/2025 4:19 AM EDT [facility] CO2 28.2 22.0 - 29.0 mmol/L 04/11/2025 4:19 AM EDT [facility] Calcium 8.2(L) 8.6 - 10.5 mg/dL 04/11/2025 4:19 AM EDT [facility] Total Protein 6.1 6.0 - 8.5 g/dL 04/11/2025 4:19 AM EDT [facility] Albumin 3.1(L) 3.5 - 5.2 g/dL 04/11/2025 4:19 AM EDT [facility] ALT (SGPT) 52(H) 1 - 41 U/L 04/11/2025 4:19 AM EDT [facility] AST (SGOT) 40 1 - 40 U/L 04/11/2025 4:19 AM EDT [facility] Alkaline Phosphatase 99 39 - 117 U/L 04/11/2025 4:19 AM EDT [facility] Total Bilirubin 0.2 0.0 - 1.2 mg/dL 04/11/2025 4:19 AM EDT [facility] Globulin 3.0 gm/dL 04/11/2025 4:19 AM EDT [facility] Comment:Calculated Result A/G Ratio 1.0 g/dL 04/11/2025 4:19 AM EDT [facility] BUN/Creatinine Ratio 18.4 7.0 - 25.0 04/11/2025 4:19 AM EDT [facility] Anion Gap 6.8 5.0 - 15.0 mmol/L 04/11/2025 4:19 AM EDT [facility] eGFR 117.5 >60.0 mL/min/1.7 3 04/11/2025 4:19 AM T [facility] Blood Venipuncture / Unknown 04/11/2025 3:40 AM EDT 04/11/2025 3:56 AM EDT [facility] - 04/11/2025 4:19 AM EDT [...] Hill APRN LAB BLOOD ORDERABLES Final Result [facility]
[address] [place] [address], * (ABNORMAL) CBC Auto Differential (04/10/2025 3:46 AM EDT) [facility] WBC 9.60 3.40 - 10.80 10*3/mm3 04/10/2025 3:56 AM EDT [facility] RBC 4.67 4.14 - 5.80 10*6/mm3 04/10/2025 3:56 AM EDT [facility] Hemoglobin 12.9(L) 13.0 - 17.7 g/dL 04/10/2025 3:56 AM EDT [facility] Hematocrit 40.1 37.5 - 51.0 % 04/10/2025 3:56 AM EDT [facility] MCV 85.9 79.0 - 97.0 fL 04/10/2025 3:56 AM EDT [facility] MCH 27.6 26.6 - 33.0 pg 04/10/2025 3:56 AM EDT [facility] MCHC 32.2 31.5 - 35.7 g/dL 04/10/2025 3:56 AM EDT [facility] RDW 12.9 12.3 - 15.4 % 04/10/2025 3:56 AM EDT [facility] RDW-SD 40.5 37.0 - 54.0 fl 04/10/2025 3:56 AM EDT [facility] MPV 9.5 6.0 - 12.0 fL 04/10/2025 3:56 AM EDT [facility] Platelets 227 140 - 450 10*3/mm3 04/10/2025 3:56 AM EDT [facility] Neutrophil % 59.1 42.7 - 76.0 % 04/10/2025 3:56 AM EDT [facility] Lymphocyte % 29.0 19.6 - 45.3 % 04/10/2025 3:56 AM EDT [facility] Monocyte % 8.1 5.0 - 12.0 % 04/10/2025 3:56 AM EDT [facility] Eosinophil % 3.2 0.3 - 6.2 % 04/10/2025 3:56 AM EDT [facility] Basophil % 0.4 0.0 - 1.5 % 04/10/2025 3:56 AM EDT [facility] Immature Grans % 0.2 0.0 - 0.5 % 04/10/2025 3:56 AM EDT [facility] Neutrophils, Absolute 5.67 1.70 - 7.00 10*3/mm3 04/10/2025 3:56 AM EDT [facility] Lymphocytes, Absolute 2.78 0.70 - 3.10 10*3/mm3 04/10/2025 3:56 AM EDT [facility] Monocytes, Absolute 0.78 0.10 - 0.90 10*3/mm3 04/10/2025 3:56 AM EDT [facility] Eosinophils, Absolute 0.31 0.00 - 0.40 10*3/mm3 04/10/2025 3:56 AM EDT [facility] Basophils, Absolute 0.04 0.00 - 0.20 10*3/mm3 04/10/2025 3:56 AM EDT [facility] Immature Grans, Absolute 0.02 0.00 - 0.05 10*3/mm3 04/10/2025 3:56 AM EDT [facility] nRBC 0.0 0.0 - 0.2 /100 WBC 04/10/2025 3:56 AM EDT [facility] Blood Venipuncture / Unknown 04/10/2025 3:46 AM EDT 04/10/2025 3:53 AM EDT us Jason Álvarez DO LAB BLOOD ORDERABLES Final Resul t [facility]
[address] [place] [address], * (ABNORMAL) Basic Metabolic Panel (04/10/2025 3:46 AM EDT) [facility] Glucose 125(H) 65 - 99 mg/dL 04/10/2025 4:20 AM T [facility] BUN 15.9 6.0 - 20.0 mg/dL 04/10/2025 4:20 AM [facility] Creatinine 0.77 0.76 - 1.27 mg/dL 04/10/2025 4:20 AM [facility] Sodium 137 136 - 145 mmol/L 04/10/2025 4:20 AM EDT [facility] Potassium 3.9 3.5 - 5.2 mmol/L 04/10/2025 4:20 AM EDT [facility] Chloride 102 98 - 107 mmol/L 04/10/2025 4:20 AM [facility] CO2 26.9 22.0 - 29.0 mmol/L 04/10/2025 4:20 AM [facility] Calcium 7.9(L) 8.6 - 10.5 mg/dL 04/10/2025 4:20 AM [facility] BUN/Creatinine Ratio 20.6 7.0 - 25.0 04/10/2025 4:20 AM [facility] Anion Gap 8.1 5.0 - 15.0 mmol/L 04/10/2025 4:20 AM [facility] eGFR 113.2 >60.0 mL/min/1.7 3 04/10/2025 4:20 AM [facility] Blood Venipuncture / Unknown 04/10/2025 3:46 AM EDT 04/10/2025 3:52 AM EDT [facility] - 04/10/2025 4:20 AM EDT [...] include race as a factor Jason Álvarez LAB BLOOD ORDERABLES Final Resul t [facility]
[address] [place] [address], * Heparin Anti-Xa (04/10/2025 3:46 AM EDT) Heparin Anti-Xa (UFH) 0.35 0.30 - 0.70 IU/ml 04/10/2025 4:23 AM EDT [facility] Blood Venipuncture / Unknown 04/10/2025 3:46 AM EDT 04/10/2025 3:53 AM EDT [facility] LAB BLOOD ORDERABLES Final R esult Performing Organization Address City/[facility] Co de Phone Number [facility]
[address] [place] [address], * Heparin Anti-Xa (04/09/2025 10:05 AM EDT) [facility] Heparin Anti-Xa (UFH) 0.36 0.30 - 0.70 IU/ml 04/09/2025 11:12 AM EDT [facility] Blood Venipuncture / Unknown 04/09/2025 10:05 AM EDT 04/09/2025 10:47 AM EDT [facility] LAB BLOOD ORDERABLES Final R esult Performing Organization Address City/[facility]/ZIP Co de Phone Number [facility]
[address] [place] [address], * (ABNORMAL) CBC Auto Differential (04/09/2025 4:18 AM EDT) Pathologist [facility] WBC 11.00(H) 3.40 - 10.80 10*3/mm3 04/09/2025 4:50 AM EDT [facility] RBC 4.70 4.14 - 5.80 10*6/mm3 04/09/2025 4:50 AM EDT [facility] Hemoglobin 13.0 13.0 - 17.7 g/dL 04/09/2025 4:50 AM EDT [facility] Hematocrit 40.4 37.5 - 51.0 % 04/09/2025 4:50 AM EDT [facility] MCV 86.0 79.0 - 97.0 fL 04/09/2025 4:50 AM EDT [facility] MCH 27.7 26.6 - 33.0 pg 04/09/2025 4:[facility] MCHC 32.2 31.5 - 35.7 g/dL 04/09/2025 4:50 [facility] RDW 12.8 12.3 - 15.4 % 04/09/2025 4:50 [facility] RDW-SD 39.9 37.0 - 54.0 fl 04/09/2025 4:50 [facility] MPV 10.0 6.0 - 12.0 fL 04/09/2025 4:50 [facility] Platelets 211 140 - 450 10*3/mm3 04/09/2025 4:50 [facility] Neutrophil % 74.8 42.7 - 76.0 % 04/09/2025 4:50 AM EDT [facility] Lymphocyte % 15.4(L) 19.6 - 45.3 % 04/09/2025 4:50 AM EDT [facility] Monocyte % 8.5 5.0 - 12.0 % 04/09/2025 4:50 AM EDT [facility] Eosinophil % 0.6 0.3 - 6.2 % 04/09/2025 4:50 AM EDT [facility] Basophil % 0.4 0.0 - 1.5 % 04/09/2025 4:50 AM EDT [facility] Immature Grans % 0.3 0.0 - 0.5 % 04/09/2025 4:50 AM EDT [facility] Neutrophils, Absolute 8.23(H) 1.70 - 7.00 10*3/mm3 04/09/2025 4:50 AM EDT [facility] Lymphocytes, Absolute 1.69 0.70 - 3.10 10*3/mm3 04/09/2025 4:50 AM EDT [facility] Monocytes, Absolute 0.94(H) 0.10 - 0.90 10*3/mm3 04/09/2025 4:50 AM EDT [facility] Eosinophils, Absolute 0.07 0.00 - 0.40 10*3/mm3 04/09/2025 4:50 AM EDT [facility] Basophils, Absolute 0.04 0.00 - 0.20 10*3/mm3 04/09/2025 4:50 AM EDT [facility] Immature Grans, Absolute 0.03 0.00 - 0.05 10*3/mm3 04/09/2025 4:50 AM EDT [facility] nRBC 0.0 0.0 - 0.2 /100 WBC 04/09/2025 4:50 AM EDT [facility] Blood Venipuncture / Unknown 04/09/2025 4:18 AM EDT 04/09/2025 4:31 AM EDT us Sushil Dean Jr., MD LAB BLOOD ORDERABLES Fi nal Result [facility]
[address] [place] [address], * Heparin Anti-Xa (04/09/2025 4:18 AM EDT) Heparin Anti-Xa (UFH) 0.41 0.30 - 0.70 IU/ml 04/09/2025 4:53 AM EDT [facility] Blood Venipuncture / Unknown 04/09/2025 4:18 AM EDT 04/09/2025 4:31 AM EDT Una Wheeleroy PharmD LAB BLOOD ORDERABLES Final R esult [facility]
[address] [place] [address], * (ABNORMAL) Basic Metabolic Panel (04/09/2025 4:18 AM EDT) Glucose 147(H) 65 - 99 mg/dL 04/09/2025 5:33 AM EDT [facility] BUN 23.0(H) 6.0 - 20.0 mg/dL 04/09/2025 5:33 AM EDT [facility] Creatinine 1.15 0.76 - 1.27 mg/dL 04/09/2025 5:33 AM EDT [facility] Sodium 135(L) 136 - 145 mmol/L 04/09/2025 5:33 AM EDT [facility] Potassium 4.2 3.5 - 5.2 mmol/L 04/09/2025 5:33 AM EDT [facility] Chloride 100 98 - 107 mmol/L 04/09/2025 5:33 AM EDT [facility] CO2 26.0 22.0 - 29.0 mmol/L 04/09/2025 5:33 AM EDT [facility] Calcium 8.2(L) 8.6 - 10.5 mg/dL 04/09/2025 5:33 AM EDT [facility] BUN/Creatinine Ratio 20.0 7.0 - 25.0 04/09/2025 5:33 AM EDT [facility] Anion Gap 9.0 5.0 - 15.0 mmol/L 04/09/2025 5:33 AM EDT [facility] eGFR 80.5 >60.0 mL/min/1.7 3 04/09/2025 5:33 AM EDT [facility] Blood Venipuncture / Unknown 04/09/2025 4:18 AM EDT 04/09/2025 4:29 AM EDT Narrative [facility] - 04/09/2025 5:33 [...] ORDERABLES Fi nal Result Performing Organization Address City/[facility]/ZIP Co de Phone Number [facility]
[address] [place] [address], * Wound Culture - Swab, Leg, Right (04/08/2025 3:40 PM EDT) Wound Culture No growth at 3 days ALIZA 04/11/2025 10:40 AM EDT [facility] Gram Stain Few (2+) WBCs seen 04/11/2025 10:40 AM EDT [facility] Gram Stain No organisms seen 04/11/2025 10:40 AM EDT [facility] Swab Structure of right lower limb / Unknown 04/08/2025 3:40 PM EDT 04/08/2025 8:05 PM EDT Sushil Dean Jr., MD MICROBIOLOGY - GENERAL ORDERABLES Final Result [facility]
[address] [place] [address], [facility]
[address] [place] [address], * Anaerobic Culture - Swab, Leg, Right (04/08/2025 3:40 PM EDT) Pathologist [facility] Anaerobic Culture No anaerobes isolated at 5 days ALIZA 04/13/2025 7:24 AM EDT [facility] Swab Structure of right lower limb / Unknown 04/08/2025 3:40 PM EDT 04/08/2025 8:05 PM EDT Sushil Dean Jr., MD MICROBIOLOGY - GENERAL ORDERABLES Final Result [facility]
[address] [place] [address], * Scan Slide (04/08/2025 8:41 AM EDT) Pathologist [facility] RBC Morphology Normal Normal 04/08/2025 11:02 AM EDT [facility] WBC Morphology Normal Normal 04/08/2025 11:02 AM EDT [facility] Platelet Estimate Adequate Normal 04/08/2025 11:02 AM EDT [facility] Clumped Platelets Present None Seen 04/08/2025 11:02 AM EDT [facility] Blood Venipuncture / Unknown 04/08/2025 8:41 AM EDT 04/08/2025 9:10 AM EDT Una Perla PharmD LAB BLOOD ORDERABLES Final R esult [facility]
[address] [place] [address], * (ABNORMAL) CBC Auto Differential (04/08/2025 8:41 AM EDT) Pathologist [facility] WBC 10.07 3.40 - 10.80 10*3/mm3 04/08/2025 11:02 AM EDT [facility] RBC 5.01 4.14 - 5.80 10*6/mm3 04/08/2025 11:02 AM [facility] Hemoglobin 14.0 13.0 - 17.7 g/dL 04/08/2025 11:02 AM [facility] Hematocrit 42.7 37.5 - 51.0 % 04/08/2025 11:02 AM [facility] MCV 85.2 79.0 - 97.0 fL 04/08/2025 11:02 AM [facility] MCH 27.9 26.6 - 33.0 pg 04/08/2025 11:02 AM [facility] MCHC 32.8 31.5 - 35.7 g/dL 04/08/2025 11:02 AM [facility] RDW 12.6 12.3 - 15.4 % 04/08/2025 11:02 AM [facility] RDW-SD 38.9 37.0 - 54.0 fl 04/08/2025 11:02 AM [facility] MPV 11.0 6.0 - 12.0 fL 04/08/2025 11:02 AM [facility] Platelets 118(L) 140 - 450 10*3/mm3 04/08/2025 11:02 AM [facility] Neutrophil % 85.1(H) 42.7 - 76.0 % 04/08/2025 11:02 AM [facility] Lymphocyte % 9.3(L) 19.6 - 45.3 % 04/08/2025 11:02 AM [facility] Monocyte % 4.6(L) 5.0 - 12.0 % 04/08/2025 11:02 AM [facility] Eosinophil % 0.3 0.3 - 6.2 % 04/08/2025 11:02 AM [facility] Basophil % 0.2 0.0 - 1.5 % 04/08/2025 11:02 AM [facility] Immature Grans % 0.5 0.0 - 0.5 % 04/08/2025 11:02 AM EDT [facility] Neutrophils, Absolute 8.57(H) 1.70 - 7.00 10*3/mm3 04/08/2025 11:02 AM EDT [facility] Lymphocytes, Absolute 0.94 0.70 - 3.10 10*3/mm3 04/08/2025 11:02 AM EDT [facility] Monocytes, Absolute 0.46 0.10 - 0.90 10*3/mm3 04/08/2025 11:02 AM EDT [facility] Eosinophils, Absolute 0.03 0.00 - 0.40 10*3/mm3 04/08/2025 11:02 AM EDT [facility] Basophils, Absolute 0.02 0.00 - 0.20 10*3/mm3 04/08/2025 11:02 AM EDT [facility] Immature Grans, Absolute 0.05 0.00 - 0.05 10*3/mm3 04/08/2025 11:02 AM EDT [facility] nRBC 0.0 0.0 - 0.2 /100 WBC 04/08/2025 11:02 AM EDT [facility] Blood Venipuncture / Unknown 04/08/2025 8:41 AM EDT 04/08/2025 9:10 AM EDT Una Perla PharmD LAB BLOOD ORDERABLES Final R esult [facility]
[address] [place] [address], * (ABNORMAL) Basic Metabolic Panel (04/08/2025 8:41 AM EDT) Glucose 125(H) 65 - 99 mg/dL 04/08/2025 9:51 AM EDT [facility] BUN 13.2 6.0 - 20.0 mg/dL 04/08/2025 9:51 AM EDT [facility] Creatinine 0.69(L) 0.76 - 1.27 mg/dL 04/08/2025 9:51 AM EDT [facility] Sodium 136 136 - 145 mmol/L 04/08/2025 9:51 AM EDT [facility] Potassium 4.6 3.5 - 5.2 mmol/L 04/08/2025 9:51 AM EDT [facility] Chloride 102 98 - 107 mmol/L 04/08/2025 9:51 AM EDT [facility] CO2 23.5 22.0 - 29.0 mmol/L 04/08/2025 9:51 AM EDT [facility] Calcium 8.4(L) 8.6 - 10.5 mg/dL 04/08/2025 9:51 AM EDT [facility] BUN/Creatinine Ratio 19.1 7.0 - 25.0 04/08/2025 9:51 AM EDT [facility] Anion Gap 10.5 5.0 - 15.0 mmol/L 04/08/2025 9:51 AM EDT [facility] eGFR 117.0 >60.0 mL/min/1.7 3 04/08/2025 9:51 AM EDT [facility] Blood Venipuncture / Unknown 04/08/2025 8:41 AM EDT 04/08/2025 9:09 AM EDT Narrative [facility] - 04/08/2025 [...] Jr., MD LAB BLOOD ORDERABLES nal Result [facility]
[address] [place] [address], * Heparin Anti-Xa (04/08/2025 8:41 AM EDT) Heparin Anti-Xa (UFH) 0.33 0.30 - 0.70 IU/ml 04/08/2025 9:40 AM EDT [facility] Blood Venipuncture / Unknown 04/08/2025 8:41 AM EDT 04/08/2025 9:10 AM EDT us Sushil Dean Jr., MD LAB BLOOD ORDERABLES Fi nal Result [facility]
[address] [place] [address], * FL C Arm During Surgery (04/07/2025 9:32 PM EDT) Narrative SYSTEMGENERATED, DOCUMENTATION - 04/07/2025 9:38 PM EDT This procedure was auto-finalized with no dictation required. us Sushil Dean Jr., MD IMG FLUOROSCOPY ORDERAB LES Final Result * Wound Culture - Swab, Leg, Right (04/07/2025 9:14 PM EDT) Wound Culture No growth at 3 days ALIZA 04/11/2025 10:40 AM EDT [facility] Gram Stain Occasional WBCs seen 04/11/2025 10:40 AM EDT [facility] Gram Stain No organisms seen 04/11/2025 10:40 AM EDT [facility] Swab Structure of right lower limb / Unknown Collection / Unknown 04/07/2025 9:14 PM EDT 04/08/2025 4:36 AM EDT us Sushil Dean Jr., MD MICROBIOLOGY - GENERAL ORDERABLES Final Result Performing Organization Address City/[facility]/ZIP Co de Phone Number [facility]
[address] [place] [address], [facility]
[address] [place] [address], * Anaerobic Culture - Swab, Leg, Right (04/07/2025 9:14 PM EDT) Anaerobic Culture No anaerobes isolated at 5 days ALIZA 04/13/2025 7:21 AM EDT [facility] Swab Structure of right lower limb / Unknown Collection / Unknown 04/07/2025 9:14 PM EDT 04/08/2025 4:36 AM EDT Sushil Dean Jr., MD MICROBIOLOGY - GENERAL ORDERABLES Final Result Performing Organization Address [facility]/ZIP Co de Phone Number [facility]
[address] [place] [address], * Anaerobic Culture - Tissue, Leg (04/07/2025 9:13 PM EDT) Anaerobic Culture No anaerobes isolated at 5 days ALIZA 04/13/2025 7:21 AM EDT [facility] Tissue Lower limb structure / Unknown Collection / Unknown 04/07/2025 9:13 PM EDT 04/08/2025 4:54 AM EDT Jason Álvarez DO MICROBIOLOGY - GENERAL ORDERABLE S Final Result Performing Organization Address City/[facility]/ZIP Co de Phone Number [facility]
[address] [place] [address], * Tissue / Bone Culture - Tissue, Leg, Right (04/07/2025 9:13 PM EDT) Tissue Culture No growth at 3 days ALIZA 04/11/2025 10:36 AM EDT [facility] Gram Stain Rare (1+) WBCs seen 04/11/2025 10:36 AM EDT [facility] Gram Stain No organisms seen 04/11/2025 10:36 AM EDT [facility] Tissue Structure of right lower limb / Unknown 04/07/2025 9:13 PM EDT 04/08/2025 4:54 AM EDT Sushil Dean Jr., MD MICROBIOLOGY - GENERAL ORDERABLES Final Result [facility]
[address] [facility] [place] [address], [place] [phone] [facility]
[address] [place] [address], [place] [phone] * (ABNORMAL) Wound Culture - Swab, Leg, Right (04/07/2025 9:07 PM EDT) Wound Culture Light growth (2+) Staphylococcus aureus, MRSA(A) ALIZA 04/10/2025 10:38 AM EDT [facility] Comment: Methicillin resistant Staphylococcus aureus, Patient may be an isolation risk. Gram Stain Few (2+) WBCs seen 04/10/2025 10:38 AM EDT [facility] Gram Stain No organisms seen 10:38 AM EDT [facility] Swab Structure [...] GENERAL ORDERABLES Final Result Performing Organization Address [facility] Co de Phone Number [facility]
[address] [place] [address], [facility]
[address] [place] [address], [place] [phone] * Anaerobic Culture - Swab, Leg, Right (04/07/2025 9:07 PM EDT) [facility] Anaerobic Culture No anaerobes isolated at 5 days ALIZA 04/13/2025 7:21 AM EDT [facility] Swab Structure of right lower limb / Unknown Collection / Unknown 04/07/2025 9:07 PM EDT 04/08/2025 4:36 AM EDT Sushil Dean Jr., MD MICROBIOLOGY - GENERAL ORDERABLES Final Result Performing Organization Address [facility] Co de Phone Number [facility]
[address] [place] [address], * Heparin Anti-Xa (04/07/2025 9:10 AM EDT) [facility] Heparin Anti-Xa (UFH) 0.30 0.30 - 0.70 IU/ml 04/07/2025 10:12 AM EDT [facility] Blood Venipuncture / Unknown 04/07/2025 9:10 AM EDT 04/07/2025 9:38 AM EDT Una LundbergD LAB BLOOD ORDERABLES Final R esult Performing Organization Address [facility] Co de Phone Number [facility]
[address] [place] [address], [place] [phone] * (ABNORMAL) CBC Auto Differential (04/07/2025 9:10 AM EDT) [facility] WBC 8.63 3.40 - 10.80 10*3/mm3 04/07/2025 9:50 AM EDT [facility] RBC 5.23 4.14 - 5.80 10*6/mm3 04/07/2025 [facility] Hemoglobin 14.7 13.0 - 17.7 g/dL 04/07/2025 9:50 AM EDT [facility] Hematocrit 44.8 37.5 - 51.0 % 04/07/2025 9:50 AM EDT [facility] MCV 85.7 79.0 - 97.0 fL 04/07/2025 9:50 AM EDT [facility] MCH 28.1 26.6 - 33.0 pg 04/07/2025 9:[facility] MCHC 32.8 31.5 - 35.7 g/dL 04/07/2025 9:50 AM [facility] RDW 12.8 12.3 - 15.4 % 04/07/2025 9:50 AM [facility] RDW-SD 39.9 37.0 - 54.0 fl 04/07/2025 9:50 AM [facility] MPV 10.8 6.0 - 12.0 fL 04/07/2025 9:[facility] Platelets 149 140 - 450 10*3/mm3 04/07/2025 9:[facility] Neutrophil % 66.7 42.7 - 76.0 % 04/07/2025 9:50 AM EDT [facility] Lymphocyte % 20.5 19.6 - 45.3 % 04/07/2025 9:50 AM EDT [facility] Monocyte % 9.8 5.0 - 12.0 % 04/07/2025 9:50 AM EDT [facility] Eosinophil % 2.1 0.3 - 6.2 % 04/07/2025 9:50 AM EDT [facility] Basophil % 0.3 0.0 - 1.5 % 04/07/2025 9:50 AM EDT [facility] Immature Grans % 0.6(H) 0.0 - 0.5 % 04/07/2025 9:50 AM EDT [facility] Neutrophils, Absolute 5.75 1.70 - 7.00 10*3/mm3 04/07/2025 9:50 AM EDT [facility] Lymphocytes, Absolute 1.77 0.70 - 3.10 10*3/mm3 04/07/2025 9:50 AM EDT [facility] Monocytes, Absolute 0.85 0.10 - 0.90 10*3/mm3 04/07/2025 9:50 AM EDT [facility] Eosinophils, Absolute 0.18 0.00 - 0.40 10*3/mm3 04/07/2025 9:50 AM EDT [facility] Basophils, Absolute 0.03 0.00 - 0.20 10*3/mm3 04/07/2025 9:50 AM EDT [facility] Immature Grans, Absolute 0.05 0.00 - 0.05 10*3/mm3 04/07/2025 9:50 AM EDT [facility] nRBC 0.0 0.0 - 0.2 /100 WBC 04/07/2025 9:50 AM [facility] Blood Venipuncture / Unknown 04/07/2025 9:10 AM EDT 04/07/2025 9:38 AM EDT us Jason Álvarez DO LAB BLOOD ORDERABLES Final Resul t [facility]
[address] [place] [address], * (ABNORMAL) Basic Metabolic Panel (04/07/2025 9:10 AM EDT) Glucose 112(H) 65 - 99 mg/dL 04/07/2025 10:19 AM EDT [facility] BUN 13.1 6.0 - 20.0 mg/dL 04/07/2025 10:19 AM [facility] Creatinine 0.77 0.76 - 1.27 mg/dL 04/07/2025 10:19 AM [facility] Sodium 139 136 - 145 mmol/L 04/07/2025 10:19 AM [facility] Potassium 4.2 3.5 - 5.2 mmol/L 04/07/2025 10:19 AM [facility] Comment:Specimen hemolyzed. Result may be falsely elevated. Chloride 105 98 - 107 mmol/L 04/07/2025 10:19 AM [facility] CO2 24.8 22.0 - 29.0 mmol/L 04/07/2025 10:19 AM [facility] Calcium 8.6 8.6 - 10.5 mg/dL 04/07/2025 10:19 AM [facility] BUN/Creatinine Ratio 17.0 7.0 - 25.0 04/07/2025 10:19 AM [facility] Anion Gap 9.2 5.0 - 15.0 mmol/L 04/07/2025 10:19 AM [facility] eGFR 113.2 >60.0 mL/min/1.7 3 04/07/2025 10:19 AM [facility] Blood Venipuncture / Unknown 04/07/2025 9:10 AM EDT 04/07/2025 9:38 AM [facility] - 04/07/2025 10:19 AM EDT GFR [...] DO LAB BLOOD ORDERABLES Final Resul t [facility]
[address] [id number], * MRI Tibia Fibula Right With & [...] Chitra 04/07/2025 9:58 AM EDT Workstation ID: [id number] Narrative 04/07/2025 9:58 AM EDT MRI TIBIA [...] [place] 04/07/2025 9:58 AM EDT Workstation ID: [id number] us Sushil Dean Jr., MD IMG MRI ORDERABLES Mary Beth l Result * Heparin Anti-Xa (04/07/2025 1:42 AM EDT) Pathologist [facility] Heparin Anti-Xa (UFH) 0.38 0.30 - 0.70 IU/ml 04/07/2025 2:14 AM EDT [facility] Blood Venipuncture / Unknown 04/07/2025 1:42 AM EDT 04/07/2025 1:54 AM EDT Chelsie Navarretesapna [facility] LAB BLOOD ORDERABLES Final R esult [facility]
[address] [place] [address], * Heparin Anti-Xa (04/06/2025 7:16 PM EDT) [facility] Heparin Anti-Xa (UFH) 0.33 0.30 - 0.70 IU/ml 04/06/2025 7:50 PM EDT [facility] Blood Venipuncture / Unknown 04/06/2025 7:16 PM EDT 04/06/2025 7:35 PM EDT Cherri Beatty [facility] LAB BLOOD ORDERABLES Final Res ult [facility]
[address] [place] [address], * Potassium (04/06/2025 7:16 PM EDT) [facility] Potassium 4.0 3.5 - 5.2 mmol/L 04/06/2025 7:53 PM EDT [facility] Blood Venipuncture / Unknown 04/06/2025 7:16 PM EDT 04/06/2025 7:35 PM EDT Jason Álvarez DO LAB BLOOD ORDERABLES Final Resul t Performing Organization Address City/[facility]/ZIP Co de Phone Number [facility]
[address] [place] [address], * (ABNORMAL) Heparin Anti-Xa (04/06/2025 12:36 PM EDT) Heparin Anti-Xa (UFH) 0.24(L) 0.30 - 0.70 IU/ml 04/06/2025 1:23 PM EDT [facility] Blood Venipuncture / Unknown 04/06/2025 12:36 PM EDT 04/06/2025 1:07 PM EDT Una Perla PharmD LAB BLOOD ORDERABLES Final R esult Performing Organization Address City/[facility] Co de Phone Number [facility]
[address] [place] [address], * (ABNORMAL) Heparin Anti-Xa (04/06/2025 3:42 AM EDT) Heparin Anti-Xa (UFH) 0.25(L) 0.30 - 0.70 IU/ml 04/06/2025 5:30 AM EDT [facility] Blood Venipuncture / Unknown 04/06/2025 3:42 AM EDT 04/06/2025 4:59 AM EDT Chelsie Turpin [facility] LAB BLOOD ORDERABLES Final R esult Performing Organization Address City/[facility]/ZIP Co de Phone Number [facility]
[address] [place] [address], * (ABNORMAL) Basic Metabolic Panel (04/06/2025 3:42 AM EDT) Glucose 94 65 - 99 mg/dL 04/06/2025 5:59 AM EDT [facility] BUN 12.8 6.0 - 20.0 mg/dL 04/06/2025 5:59 AM T [facility] Creatinine 0.80 0.76 - 1.27 mg/dL 04/06/2025 5:59 AM EDT [facility] Sodium 138 136 - 145 mmol/L 04/06/2025 5:59 AM EDT [facility] Potassium 3.6 3.5 - 5.2 mmol/L 04/06/2025 5:59 AM EDT [facility] Chloride 103 98 - 107 mmol/L 04/06/2025 5:59 AM EDT [facility] CO2 24.2 22.0 - 29.0 mmol/L 04/06/2025 5:59 AM EDT [facility] Calcium 8.0(L) 8.6 - 10.5 mg/dL 04/06/2025 5:59 AM [facility] BUN/Creatinine Ratio 16.0 7.0 - 25.0 04/06/2025 5:59 AM EDT [facility] Anion Gap 10.8 5.0 - 15.0 mmol/L 04/06/2025 5:59 AM [facility] eGFR 111.9 >60.0 mL/min/1.7 3 04/06/2025 5:59 AM [facility] Blood Venipuncture / Unknown 04/06/2025 3:42 AM EDT 04/06/2025 5:20 AM EDT [facility] - 04/06/2025 5:59 AM EDT [...] DO LAB BLOOD ORDERABLES Final Resul t [facility]
[address] [place] [address], * (ABNORMAL) CBC Auto Differential (04/06/2025 3:41 AM EDT) WBC 10.86(H) 3.40 - 10.80 10*3/mm3 04/06/2025 5:04 AM EDT [facility] RBC 5.08 4.14 - 5.80 10*6/mm3 04/06/2025 5:04 AM EDT [facility] Hemoglobin 13.9 13.0 - 17.7 g/dL 04/06/2025 5:04 AM EDT [facility] Hematocrit 43.7 37.5 - 51.0 % 04/06/2025 5:04 AM EDT [facility] MCV 86.0 79.0 - 97.0 fL 04/06/2025 5:04 AM EDT [facility] MCH 27.4 26.6 - 33.0 pg 04/06/2025 5:04 AM EDT [facility] MCHC 31.8 31.5 - 35.7 g/dL 04/06/2025 5:04 AM EDT [facility] RDW 12.8 12.3 - 15.4 % 04/06/2025 5:04 AM EDT [facility] RDW-SD 40.0 37.0 - 54.0 fl 04/06/2025 5:04 AM EDT [facility] MPV 11.7 6.0 - 12.0 fL 04/06/2025 5:04 AM EDT [facility] Platelets 115(L) 140 - 450 10*3/mm3 04/06/2025 5:04 AM EDT [facility] Neutrophil % 65.3 42.7 - 76.0 % 04/06/2025 5:04 AM EDT [facility] Lymphocyte % 20.5 19.6 - 45.3 % 04/06/2025 5:04 AM EDT [facility] Monocyte % 11.8 5.0 - 12.0 % 04/06/2025 5:04 AM EDT [facility] Eosinophil % 1.8 0.3 - 6.2 % 04/06/2025 5:04 AM EDT [facility] Basophil % 0.3 0.0 - 1.5 % 04/06/2025 5:04 AM EDT [facility] Immature Grans % 0.3 0.0 - 0.5 % 04/06/2025 5:04 AM EDT [facility] Neutrophils, Absolute 7.09(H) 1.70 - 7.00 10*3/mm3 04/06/2025 5:04 AM EDT [facility] Lymphocytes, Absolute 2.23 0.70 - 3.10 10*3/mm3 04/06/2025 5:04 AM EDT [facility] Monocytes, Absolute 1.28(H) 0.10 - 0.90 10*3/mm3 04/06/2025 5:04 AM EDT [facility] Eosinophils, Absolute 0.20 0.00 - 0.40 10*3/mm3 04/06/2025 5:04 AM EDT [facility] Basophils, Absolute 0.03 0.00 - 0.20 10*3/mm3 04/06/2025 5:04 AM EDT [facility] Immature Grans, Absolute 0.03 0.00 - 0.05 10*3/mm3 04/06/2025 5:04 AM EDT [facility] nRBC 0.0 0.0 - 0.2 /100 WBC 04/06/2025 5:04 AM EDT [facility] Blood Venipuncture / Unknown 04/06/2025 3:41 AM EDT 04/06/2025 4:58 AM EDT us Jason Álvarez DO LAB BLOOD ORDERABLES Final Resul t [facility]
[address] [place] [address], * Heparin Anti-Xa (04/05/2025 8:43 PM EDT) Heparin Anti-Xa (UFH) 0.38 0.30 - 0.70 IU/ml 04/05/2025 9:09 PM EDT [facility] Blood Venipuncture / Unknown 04/05/2025 8:43 PM EDT 04/05/2025 8:55 PM EDT Cherri Beatty [facility] LAB BLOOD ORDERABLES Final Res ult [facility]
[address] [place] [address], * CK (04/05/2025 12:15 PM EDT) Pathologist [facility] Creatine Kinase 140 20 - 200 U/L 04/05/2025 1:31 PM EDT [facility] Blood Venipuncture / Unknown 04/05/2025 12:15 PM EDT 04/05/2025 1:03 PM EDT Carlton Mead MD LAB BLOOD ORDERABLES Final R esult [facility]
[address] [place] [address], * (ABNORMAL) Heparin Anti-Xa (04/05/2025 12:15 PM EDT) Heparin Anti-Xa (UFH) 0.17(L) 0.30 - 0.70 IU/ml 04/05/2025 1:21 PM EDT [facility] Blood Venipuncture / Unknown 04/05/2025 12:15 PM EDT 04/05/2025 1:04 PM EDT us [employer] LAB BLOOD ORDERABLES Final R esult [facility]
[address] [place] [address], * (ABNORMAL) aPTT (04/05/2025 3:54 AM EDT) PTT 35.3(L) 60.0 - 90.0 seconds 04/05/2025 4:31 AM EDT [facility] Blood Venipuncture / Unknown 04/05/2025 3:54 AM EDT 04/05/2025 4:15 AM EDT Narrative [facility] - 04/05/2025 4:31 AM EDT PTT = The equivalent PTT values for the therapeutic range of heparin levels at 0.3 to 0.5 U/ml are 60 to 70 seconds. [employer] LAB BLOOD ORDERABLES Final R esult Performing Organization Address [facility] Co de Phone Number [facility]
[address] [place] [address], * Heparin Anti-Xa (04/05/2025 3:54 AM EDT) Pathologist [facility] Heparin Anti-Xa (UFH) 0.30 0.30 - 0.70 IU/ml 04/05/2025 4:32 AM EDT [facility] Blood Venipuncture / Unknown 04/05/2025 3:54 AM EDT 04/05/2025 4:15 AM EDT [employer] LAB BLOOD ORDERABLES Final R esult Performing Organization Address City/[facility]/ZIP Co de Phone Number [facility]
[address] [place] [address], [place] [phone] * (ABNORMAL) CBC Auto Differential (04/05/2025 3:54 AM EDT) [facility] WBC 11.18(H) 3.40 - 10.80 10*3/mm3 04/05/2025 4:20 AM EDT [facility] RBC 5.00 4.14 - 5.80 10*6/mm3 04/05/2025 4:20 AM EDT [facility] Hemoglobin 13.9 13.0 - 17.7 g/dL 04/05/2025 4:20 AM EDT [facility] Hematocrit 42.4 37.5 - 51.0 % 04/05/2025 4:20 AM EDT [facility] MCV 84.8 79.0 - 97.0 fL 04/05/2025 4:20 AM EDT [facility] MCH 27.8 26.6 - 33.0 pg 04/05/2025 4:20 AM EDT [facility] MCHC 32.8 31.5 - 35.7 g/dL 04/05/2025 4:20 AM EDT [facility] RDW 12.9 12.3 - 15.4 % 04/05/2025 4:20 AM EDT [facility] RDW-SD 39.7 37.0 - 54.0 fl 04/05/2025 4:20 AM EDT [facility] MPV 10.2 6.0 - 12.0 fL 04/05/2025 4:20 AM EDT [facility] Platelets 160 140 - 450 10*3/mm3 04/05/2025 4:20 AM EDT [facility] Neutrophil % 73.5 42.7 - 76.0 % 04/05/2025 4:20 AM EDT [facility] Lymphocyte % 14.0(L) 19.6 - 45.3 % 04/05/2025 4:20 AM EDT [facility] Monocyte % 11.0 5.0 - 12.0 % 04/05/2025 4:20 AM EDT [facility] Eosinophil % 0.8 0.3 - 6.2 % 04/05/2025 4:20 AM EDT [facility] Basophil % 0.3 0.0 - 1.5 % 04/05/2025 4:20 AM EDT [facility] Immature Grans % 0.4 0.0 - 0.5 % 04/05/2025 4:20 AM EDT [facility] Neutrophils, Absolute 8.23(H) 1.70 - 7.00 10*3/mm3 04/05/2025 4:20 AM EDT [facility] Lymphocytes, Absolute 1.56 0.70 - 3.10 10*3/mm3 04/05/2025 4:20 AM EDT [facility] Monocytes, Absolute 1.23(H) 0.10 - 0.90 10*3/mm3 04/05/2025 4:20 AM EDT [facility] Eosinophils, Absolute 0.09 0.00 - 0.40 10*3/mm3 04/05/2025 4:20 AM EDT [facility] Basophils, Absolute 0.03 0.00 - 0.20 10*3/mm3 04/05/2025 4:20 AM EDT [facility] Immature Grans, Absolute 0.04 0.00 - 0.05 10*3/mm3 04/05/2025 4:20 AM EDT [facility] nRBC 0.0 0.0 - 0.2 /100 WBC 04/05/2025 4:20 AM EDT [facility] Blood Venipuncture / Unknown 04/05/2025 3:54 AM EDT 04/05/2025 4:16 AM EDT us Una Perla PharmD LAB BLOOD ORDERABLES Final R esult [facility]
[address] [place] [address], * (ABNORMAL) Basic Metabolic Panel (04/05/2025 3:54 AM EDT) [facility] Glucose 152(H) 65 - 99 mg/dL 04/05/2025 4:40 AM [facility] BUN 17.3 6.0 - 20.0 mg/dL 04/05/2025 4:40 AM [facility] Creatinine 0.92 0.76 - 1.27 mg/dL 04/05/2025 4:40 AM [facility] Sodium 136 136 - 145 mmol/L 04/05/2025 4:40 AM [facility] Potassium 3.9 3.5 - 5.2 mmol/L 04/05/2025 4:40 AM T [facility] Chloride 103 98 - 107 mmol/L 04/05/2025 4:40 AM [facility] CO2 24.0 22.0 - 29.0 mmol/L 04/05/2025 4:40 AM [facility] Calcium 7.8(L) 8.6 - 10.5 mg/dL 04/05/2025 4:40 AM [facility] BUN/Creatinine Ratio 18.8 7.0 - 25.0 04/05/2025 4:40 AM [facility] Anion Gap 9.0 5.0 - 15.0 mmol/L 04/05/2025 4:40 AM [facility] eGFR 105.2 >60.0 mL/min/1.7 3 04/05/2025 4:40 AM [facility] Blood Venipuncture / Unknown 04/05/2025 3:54 AM EDT 04/05/2025 4:15 AM [facility] - [...] ORDERABLES Final Re sult Performing Organization Address City/[facility]/ZIP Co de Phone Number [facility]
[address] [place] [address], * (ABNORMAL) aPTT (04/05/2025 12:18 AM EDT) PTT 33.6(L) 60.0 - 90.0 seconds 04/05/2025 12:53 AM EDT [facility] Blood Venipuncture / Unknown 04/05/2025 12:18 AM EDT 04/05/2025 12:37 AM EDT Narrative [facility] - 04/05/2025 12:53 AM EDT PTT = The equivalent PTT values for the therapeutic range of heparin levels at 0.3 to 0.5 U/ml are 60 to 70 seconds. Una LundbergD LAB BLOOD ORDERABLES Final R esult Performing Organization Address [facility] Co de Phone Number [facility]
[address] [place] [address], * (ABNORMAL) Protime-INR (04/05/2025 12:18 AM EDT) Protime 15.9(H) 12.2 - 15.3 Seconds 04/05/2025 12:53 AM EDT [facility] INR 1.19(H) 0.89 - 1.12 04/05/2025 12:53 AM EDT [facility] Blood Venipuncture / Unknown 04/05/2025 12:18 AM EDT 04/05/2025 12:37 AM EDT Una Perla PharmD LAB BLOOD ORDERABLES Final R esult Performing Organization Address City/[facility]/ZIP Co de Phone Number [facility]
[address] [place] [address], * Heparin Anti-Xa (04/05/2025 12:18 AM EDT) Heparin Anti-Xa (UFH) 0.39 0.30 - 0.70 IU/ml 04/05/2025 12:54 AM EDT [facility] Blood Venipuncture / Unknown 04/05/2025 12:18 AM EDT 04/05/2025 12:37 AM EDT Una Perla PharmD LAB BLOOD ORDERABLES Final R esult [facility]
[address] [place] [address], * MRI Tibia Fibula Right With & [...] MD 04/04/2025 11:00 PM EDT Workstation ID: [id number] Narrative 04/04/2025 11:00 PM EDT MRI TIBIA [...] MD 04/04/2025 11:00 PM EDT Workstation ID: [id number] Leonora Shepherd MD IMG MRI ORDERABLES Final Resu lt * POC Creatinine (04/04/2025 2:49 PM EDT) Pathologist [facility] Creatinine 1.10 0.60 - 1.30 mg/dL 04/07/2025 7:14 PM EDT [facility] Comment:Serial Number: [id number] 7Operator: [id number] Venous Blood 04/04/2025 2:49 PM EDT 04/07/2025 7:14 PM EDT Jason Álvarez DO POINT OF CARE TEST ORDERABLES Fi nal Result [facility]
[address] [place] [address], * (ABNORMAL) CBC Auto Differential (04/04/2025 2:47 PM EDT) Pathologist [facility] WBC 12.72(H) 3.40 - 10.80 10*3/mm3 04/04/2025 2:56 PM EDT [facility] RBC 5.64 4.14 - 5.80 10*6/mm3 04/04/2025 2:56 PM EDT [facility] Hemoglobin 15.3 13.0 - 17.7 g/dL 04/04/2025 2:56 PM EDT [facility] Hematocrit 47.9 37.5 - 51.0 % 04/04/2025 2:56 PM EDT [facility] MCV 84.9 79.0 - 97.0 fL 04/04/2025 2:56 PM EDT [facility] MCH 27.1 26.6 - 33.0 pg 04/04/2025 2:56 PM EDT [facility] MCHC 31.9 31.5 - 35.7 g/dL 04/04/2025 2:56 PM EDT [facility] RDW 13.1 12.3 - 15.4 % 04/04/2025 2:56 PM EDT [facility] RDW-SD 40.3 37.0 - 54.0 fl 04/04/2025 2:56 PM EDT [facility] MPV 9.4 6.0 - 12.0 fL 04/04/2025 2:56 PM EDT [facility] Platelets 232 140 - 450 10*3/mm3 04/04/2025 2:56 PM EDT [facility] Neutrophil % 74.9 42.7 - 76.0 % 04/04/2025 2:56 PM EDT [facility] Lymphocyte % 13.1(L) 19.6 - 45.3 % 04/04/2025 2:56 PM EDT [facility] Monocyte % 11.2 5.0 - 12.0 % 04/04/2025 2:56 PM EDT [facility] Eosinophil % 0.4 0.3 - 6.2 % 04/04/2025 2:56 PM EDT [facility] Basophil % 0.2 0.0 - 1.5 % 04/04/2025 2:56 PM EDT [facility] Immature Grans % 0.2 0.0 - 0.5 % 04/04/2025 2:56 PM EDT [facility] Neutrophils, Absolute 9.52(H) 1.70 - 7.00 10*3/mm3 04/04/2025 2:56 PM EDT [facility] Lymphocytes, Absolute 1.66 0.70 - 3.10 10*3/mm3 04/04/2025 2:56 PM EDT [facility] Monocytes, Absolute 1.43(H) 0.10 - 0.90 10*3/mm3 04/04/2025 2:56 PM EDT [facility] Eosinophils, Absolute 0.05 0.00 - 0.40 10*3/mm3 04/04/2025 2:56 PM EDT [facility] Basophils, Absolute 0.03 0.00 - 0.20 10*3/mm3 04/04/2025 2:56 PM EDT [facility] Immature Grans, Absolute 0.03 0.00 - 0.05 10*3/mm3 04/04/2025 2:56 PM EDT [facility] nRBC 0.0 0.0 - 0.2 /100 WBC 04/04/2025 2:56 PM EDT [facility] Blood Venipuncture / Unknown 04/04/2025 2:47 PM EDT 04/04/2025 2:52 PM EDT Mario Ortiz [facility] LAB BLOOD ORDERABLES Fin al Result [facility]
[address] [place] [address], * (ABNORMAL) C-reactive Protein (04/04/2025 2:47 PM EDT) C-Reactive Protein 8.57(H) 0.00 - 0.50 mg/dL 04/04/2025 3:26 PM EDT [facility] Blood Venipuncture / Unknown 04/04/2025 2:47 PM EDT 04/04/2025 2:52 PM EDT [facility] Fin al Result [facility]
[address] [place] [address], * (ABNORMAL) Sedimentation Rate (04/04/2025 2:47 PM EDT) Sed Rate 51(H) 0 - 15 mm/hr 04/04/2025 3:06 PM EDT [facility] Blood Venipuncture / Unknown 04/04/2025 2:47 PM EDT 04/04/2025 2:52 PM EDT Mario Harperbenlennox DO LAB BLOOD ORDERABLES Fin al Result [facility]
[address] [place] [address], * Comprehensive Metabolic Panel (04/04/2025 2:47 PM EDT) [facility] Signature Glucose 90 65 - 99 mg/dL 04/04/2025 3:26 PM EDT [facility] BUN 18.3 6.0 - 20.0 mg/dL 04/04/2025 3:26 PM EDT [facility] Creatinine 0.94 0.76 - 1.27 mg/dL 04/04/2025 3:26 PM EDT [facility] Sodium 136 136 - 145 mmol/L 04/04/2025 3:26 PM EDT [facility] Potassium 3.8 3.5 - 5.2 mmol/L 04/04/2025 3:26 PM EDT [facility] Chloride 100 98 - 107 mmol/L 04/04/2025 3:26 PM EDT [facility] CO2 25.3 22.0 - 29.0 mmol/L 04/04/2025 3:26 PM EDT [facility] Calcium 8.6 8.6 - 10.5 mg/dL 04/04/2025 3:26 PM EDT [facility] Total Protein 7.3 6.0 - 8.5 g/dL 04/04/2025 3:26 PM EDT [facility] Albumin 4.1 3.5 - 5.2 g/dL 04/04/2025 3:26 PM EDT [facility] ALT (SGPT) 26 1 - 41 U/L 04/04/2025 3:26 PM EDT [facility] AST (SGOT) 25 1 - 40 U/L 04/04/2025 3:26 PM EDT [facility] Alkaline Phosphatase 106 39 - 117 U/L 04/04/2025 3:26 PM EDT [facility] Total Bilirubin 1.0 0.0 - 1.2 mg/dL 04/04/2025 3:26 PM EDT [facility] Globulin 3.2 gm/dL 04/04/2025 3:26 PM EDT [facility] Comment:Calculated Result A/G Ratio 1.3 g/dL 04/04/2025 3:26 PM EDT [facility] BUN/Creatinine Ratio 19.5 7.0 - 25.0 04/04/2025 3:26 PM EDT [facility] Anion Gap 10.7 5.0 - 15.0 mmol/L 04/04/2025 3:26 PM EDT [facility] eGFR 102.5 >60.0 mL/min/1.7 3 04/04/2025 3:26 PM EDT [facility] Blood Venipuncture / Unknown 04/04/2025 2:47 PM EDT 04/04/2025 2:52 PM EDT [facility] LABORATORY - 04/04/2025 3:26 PM EDT [...] DO LAB BLOOD ORDERABLES Fin al Result [facility]
[address] [id number], documented in this encounter Visit Diagnoses Diagnosis [...] BPA Driven Protocol Open Order & Select [facility] Electrolyte Replacement Protocol Algorithm to [...] BPA Driven Protocol Open Order & Select [facility] Electrolyte Replacement Protocol Algorithm to [...] BPA Driven Protocol Open Order & Select [facility] Electrolyte Replacement Protocol Algorithm to [...] Dillon, RN) 2030 (Given - Provider: Alberto Dillon RN) budesonide-formoterol (SYMBICORT) 160-4.5 MCG/ACT inhaler 2 puff 2 puff, Inhalation, 2 Times Daily - RT, First dose on Mon04/06/25 at 1345, Include Respiratory Treatment Education (SP) Shake well. Rinse mouth after use, do not swallow water. Send aerosols to pharmacy in ziplock bag for proper disposal. 0831 (Given - Provider: Amber Salazar, ORDERLY)194 (Given - Provider: Anahy Marcelino, KELL)2129 (Canceled Entry - Provider: Anahy Marcelino RRT - Comment: previously given) 0837 (Given - Provider: Amber Salazar, ORDERLY)2006 (Given - Provider: Loree Reese, ORDERLY)213 (Canceled Entry - Provider: Loree Reese RRT) [...] RN) 0907 (New Bag - Provider: Shirley Hart, [...] RN) 905 (Given - Provider: Shirley Hart, RN)2030 (Given - Provider: Alberto Dillon RN) [...] 905 (Given - Provider: Shirley Hart, LU) 100 (Given - Provider: Marguerite Wakefield, RN) ketorolac (TORADOL) injection 15 mg 15 mg, Intravenous, Once, On Mon04/09/25 at 2215, For 1 dose, Based on patient request - if ordered for moderate or severe pain, provider allows for administration of a medication prescribed for a lower pain scale. ([facility]) If given for pain, use the [...] Continuous Medication Order 04/09/2025 04/10/2025 04/11/2025 heparin 90786 units/250 mL (100 units/mL) in 0.45 % [...] Alberto Dillon, LU)1112 (Stopped - Provider: Shirley Hart, RN - [...] RN) 0109 (Given - Provider: Alberto Dillon, LU)0655 (Given - Provider: Alberto Dillon, RN)1414 (Given - Provider: Shirley Hart, LU)2124 (Given - Provider: Alberto Dillon, RN) 1003 (Given - Provider: Marguerite Wakefield, LU) Magnesium Standard Dose Replacement - Follow Nurse / BPA Driven Protocol Open Order & Select [facility] Electrolyte Replacement Protocol Algorithm to [...] BPA Driven Protocol Open Order & Select [facility] Electrolyte Replacement Protocol Algorithm to [...] BPA Driven Protocol Open Order & Select [facility] Electrolyte Replacement Protocol Algorithm to [...] documented as of this encounter Care Teams Welder Assistant Relationship Specialty Start Date End Date Provider, [place] [address] PCP - General 05/09/23 documented as of this encounter
--- OUTSIDE RECORDS SUMMARY | 2025-04-08 15:34 | XMS_ITS | Encounter Summary ---
Author Organization [facility] Address [address] [place] [address] Care Team Providers Care Helix Coil Winder Name Role Phone Provider, No Known Primary Care Provider Unavail able Reason for Visit * Auth/Cert Specialty Diagnoses / Procedures Referred By Bulmaro muniz Referred To Contact Diagnoses Right BKA infection Referral ID Status Reason Start Date Expiration Date Visits Re quested Visits Authorized [id number] 1 1 Encounter Details Date Type Department Care Team (Late st Contact Info) Description 04/08/2025 3:34 PM EDT Anesthesia Event [facility] OR [address] [place] [address] Ulises Hoffman MD [address] [place] [address] Jairo Brooks MD [address] [place] [address] Anesthesia Record Procedure Summary Procedure Name Responsible [...] = 0.6 oz pur e alcohol) [facility] Utilities Answer Date Recorded In the past 12 months has [email or web address], oil, or water [employer] threatened to shut off services in your [...] Date: 04/08/25 Room / Location: [facility] OR [address] [place] [address] [facility] [place] Anesthesia Start: 1533 Anesthesia Stop: [...] ROS Abdominal Substance History - negative use FORGE TENDER negative investment accountant ROS Other Anesthesia Plan ASA 3 general [...] documented as of this encounter Care Teams Helix Coil Winder Relationship Specialty Start Date End Date Provider, [place] [address] PCP - General 05/09/23 documented as of this encounter
--- OUTSIDE RECORDS SUMMARY | 2025-04-13 10:39 | XMS_ITS | Data Portability ---
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 Plan of Treatment Reminders Order Date Submit Date Provider Last Modified By Organization Details Last Modified Time Details Appointments Establish ed Visit 15 min 2024 10:15A Jadyn Torres MD Not available Not available Not available Lab C-reactiv e protein, quantitat nasim, serum or plasma [address] Lab, [address] [facility], [place], [address], 05/02/2024 17:36:31 ESR (erythroc yte sedimenta tion rate), blood [address] Lab, [address] [facility], [place], [address], 05/02/2024 17:36:31 C-reactiv e protein, quantitat nasim, serum or plasma 2023 024 [place] [address] [facility], [address], [address], [place], [address], 11/01/2023 08:08:32 ESR (erythroc yte sedimenta tion rate), blood 2023 024 [place] [address] [facility], [address], [address], [place], [address], 11/01/2023 08:08:32 CBC w/ auto diff 2023 024 [facility], [address] [facility], [place], [address], 10/24/2023 16:12:13 CMP, serum or plasma 2023 024 [facility], [address] [facility], [place], [address], 10/24/2023 16:42:07 CBC w/ auto diff 2023 024 [facility], [address] [facility], [place], [address], 07/25/2023 15:22:25 CMP, serum or plasma 2023 024 [facility], [address] [facility], [place], [address], 07/25/2023 16:32:05 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 Procedures None recorded. Surgeries None recorded. Imaging None recorded. Medication Orders doxycycli ne hyclate 100 mg capsule 2023 024 [facility], [address] [place] [address], [address], [place], [address], 10/25/2023 09:18:27 Patient TargetsNo targets recorded. Patient InstructionsNo instructions recorded. Reason for Referral None Reported. Results Created Date Observation Date Name Description Value Unit Range Abnormal Flag Note LastModifiedBy Organization Detail LastModifiedTime 07/06/20 23 07/07/2023 COMP. METAB OLIC PANEL (14) glucose 92 mg/dL 70-99 Not Available [facility] ([facility]) [address] [place], [address], 07/07/2023 13:08:40 07/06/20 23 07/07/2023 COMP. METAB OLIC PANEL (14) BUN 18 mg/dL 6-24 Not Available [facility] ([facility]) [address] [place], [address], 07/07/2023 13:08:40 07/06/20 23 07/07/2023 COMP. METAB OLIC PANEL (14) creatinine 0.85 mg/dL 0.76-1 .27 Not Available [facility] ([facility]) [address] [place], [address], 07/07/2023 13:08:40 07/06/20 23 07/07/2023 COMP. METAB OLIC PANEL (14) eGFR 111 mL/mi n/1.7 3 >59 Not Available [facility] ([facility]) [address] [place], [address], 07/07/2023 13:08:40 07/06/20 23 07/07/2023 COMP. METAB OLIC PANEL (14) BUN/creatini ne ratio 21 9-20 above high normal Not Available [facility] ([facility]) [address] [place], [address], 07/07/2023 13:08:40 07/06/20 23 07/07/2023 COMP. METAB OLIC PANEL (14) sodium 140 mmol/ L 134-14 4 Not Available [facility] ([facility]) [address] [place], [address], 07/07/2023 13:08:40 07/06/20 23 07/07/2023 COMP. METAB OLIC PANEL (14) potassium 4.1 mmol/ L 3.5-5. 2 Not Available [facility] ([facility]) [address] [facility], [place], [address], 07/07/2023 13:08:40 07/06/20 23 07/07/2023 COMP. METAB OLIC PANEL (14) chloride 105 mmol/ L 96-106 Not Available [facility] ([facility]) [address] [facility], [place], [address], 07/07/2023 13:08:40 07/06/20 23 07/07/2023 COMP. METAB OLIC PANEL (14) carbon dioxide, total 22 mmol/ L - Not Available [facility] ([facility]) [address] [place], [address], 07/07/2023 13:08:40 07/06/20 23 07/07/2023 COMP. METAB OLIC PANEL (14) calcium 8.9 mg/dL 8.7-10 .2 Not Available [facility] ([facility]) [address] [facility], [place], [address], 07/07/2023 13:08:40 07/06/20 23 07/07/2023 COMP. METAB OLIC PANEL (14) protein, total 7.3 g/dL 6.0-8. 5 Not Available [facility] ([facility]) [address] [place], [address], 07/07/2023 13:08:40 07/06/20 23 07/07/2023 COMP. METAB OLIC PANEL (14) albumin 4.3 g/dL 4.1-5. 1 Not Available [facility] ([facility]) [address] [place], [address], 07/07/2023 13:08:40 07/06/20 23 07/07/2023 COMP. METAB OLIC PANEL (14) globulin, total 3.0 g/dL 1.5-4. 5 Not Available [facility] ([facility]) [address] [place], [address], 07/07/2023 13:08:40 07/06/20 23 07/07/2023 COMP. METAB OLIC PANEL (14) A/G ratio 1.4 1.2-2. 2 Not Available [facility] ([facility]) [address] [place], [address], 07/07/2023 13:08:40 07/06/20 23 07/07/2023 COMP. METAB OLIC PANEL (14) bilirubin, total 0.3 mg/dL 0.0-1. 2 Not Available [facility] ([facility]) [address] [place], [address], 07/07/2023 13:08:40 07/06/20 23 07/07/2023 COMP. METAB OLIC PANEL (14) alkaline phosphatase 85 IU/L 44-121 Not Available [facility] ([facility]) [address] [place], [address], 07/07/2023 13:08:40 07/06/20 23 07/07/2023 COMP. METAB OLIC PANEL (14) AST (SGOT) 24 IU/L 0-40 Not Available [facility] ([facility]) [address] [place], [address], 07/07/2023 13:08:40 07/06/20 23 07/07/2023 COMP. METAB OLIC PANEL (14) ALT (SGPT) 25 IU/L 0-44 Not Available [facility] ([facility]) [address] [facility], [place], [address], 07/07/2023 13:08:40 07/06/20 23 07/07/2023 SEDIM ENTAT ION RATE- WESTE RGREN sedimentatio n rate-westerg los 28 mm/HR 0-15 above high normal Not Available [facility] ([facility]) [address] [facility], [place], [address], 07/07/2023 13:08:42 07/06/20 23 07/07/2023 C-CHANA CTIVE PROTE IN, QUANT C-reactive protein, quant 11 mg/L 0-10 above high normal Not Available [facility] ([facility]) [address] [facility], [place], [address], 07/07/2023 13:08:43 07/25/19 24 07/25/2023 CBC AUTO W DIFF WBC 6.7 K/uL 4.0-10 .5 Not Available [facility] ([facility]) [address] [facility], [place], [address], 07/25/2023 15:22:25 07/25/19 24 07/25/2023 CBC AUTO W DIFF RBC 5.7 M/mm3 4.7-6. 1 Not Available [facility] ([facility]) [address] [facility], [place], [address], 07/25/2023 15:22:25 07/25/19 24 07/25/2023 CBC AUTO W DIFF HGB 14.8 gm/dL 13.5-1 8.0 Not Available [facility] ([facility]) [address] [place], [address], 07/25/2023 15:22:25 07/25/19 24 07/25/2023 CBC AUTO W DIFF HCT 45.4 % 42.0-5 2.0 Not Available [facility] ([facility]) [address] [place], [address], 07/25/2023 15:22:25 07/25/19 24 07/25/2023 CBC AUTO W DIFF MCV 79.6 fL 78-100 Not Available [facility] ([facility]) [address], [place], [address], 07/25/2023 15:22:25 07/25/19 24 07/25/2023 CBC AUTO W DIFF MCH 26.0 pg 27-31 low Not Available [facility] ([facility]) [address], [place], [address], 07/25/2023 15:22:25 07/25/19 24 07/25/2023 CBC AUTO W DIFF MCHC 32.6 g/dL 32-36 Not Available [facility] ([facility]) [address], [place], [address], 07/25/2023 15:22:25 07/25/19 24 07/25/2023 CBC AUTO W DIFF RDW 13.7 % 11.5-1 4.0 Not Available [facility] ([facility]) [address] , [place], [address], 07/25/2023 15:22:25 07/25/19 24 07/25/2023 CBC AUTO W DIFF platelet count 279 K/uL 150-45 0 Not Available [facility] ([facility]) [address] , [place], [address], 07/25/2023 15:22:25 07/25/19 24 07/25/2023 CBC AUTO W DIFF MPV 10.0 fL 6-9.5 high Not Available [facility] ([facility]) [address] , [place], [address], 07/25/2023 15:22:25 07/25/19 24 07/25/2023 CBC AUTO W DIFF neutrophil% 61.2 % 43-65 Not Available [facility] ([facility]) [address] , [place], [address], 07/25/2023 15:22:25 07/25/19 24 07/25/2023 CBC AUTO W DIFF lymphocyte% 25.7 % 20.5-4 5.5 Not Available [facility] ([facility]) [address], [place], [address], 07/25/2023 15:22:25 07/25/19 24 07/25/2023 CBC AUTO W DIFF monocyte% 9.2 % 5.5-11 .7 Not Available [facility] ([facility]) [address], [place], [address], 07/25/2023 15:22:25 07/25/19 24 07/25/2023 CBC AUTO W DIFF eosinophil% 3.0 % 0.9-2. 9 high Not Available [facility] ([facility]) [address], [place], [address], 07/25/2023 15:22:25 07/25/19 24 07/25/2023 CBC AUTO W DIFF basophil% 0.6 % 0.2-1. 0 Not Available [facility] ([facility]) [address], [place], [address], 07/25/2023 15:22:25 07/25/19 24 07/25/2023 CBC AUTO W DIFF immature granulocytes % 0.3 % 0.0-0. 8 Not Available [facility] ([facility]) [address], [place], [address], 07/25/2023 15:22:25 07/25/19 24 07/25/2023 CBC AUTO W DIFF nucleated red blood cells % 0.0 % Not Available [facility] ([facility]) [address] [place], [address], 07/25/2023 15:22:25 07/25/19 24 07/25/2023 CBC AUTO W DIFF neutrophil# 4.1 K/uL 2.2-4. 8 Not Available [facility] ([facility]) [address] [facility], [place], [address], 07/25/2023 15:22:25 07/25/19 24 07/25/2023 CBC AUTO W DIFF lymphocyte# 1.7 cell/ mcL 1.3-2. 9 Not Available [facility] ([facility]) [address] [facility], [place], [address], 07/25/2023 15:22:25 07/25/19 24 07/25/2023 CBC AUTO W DIFF monocyte# 0.6 cell/ mcL 0.3-0. 8 Not Available [facility] ([facility]) [address] [facility], [place], [address], 07/25/2023 15:22:25 07/25/19 24 07/25/2023 CBC AUTO W DIFF eosinophil# 0.2 cell/ mcL 0-0.2 Not Available [facility] ([facility]) [address] [facility], [place], [address], 07/25/2023 15:22:25 07/25/19 24 07/25/2023 CBC AUTO W DIFF basophil# 0.0 cell/ mcL 0.0-1. 0 Not Available [facility] ([facility]) [address] [place], [address], 07/25/2023 15:22:25 07/25/19 24 07/25/2023 CBC AUTO W DIFF immature gramulocytes # 0.02 K/uL Not Available [facility] ([facility]) [address] [place], [address], 07/25/2023 15:22:25 07/25/19 24 07/25/2023 CBC AUTO W DIFF nucleated red blood cells # 0.00 K/uL Not Available [facility] ([facility]) [address] [place], [address], 07/25/2023 15:22:25 07/25/19 24 07/25/2023 CBC AUTO W DIFF manual differential NO Not Available [facility] ([facility]) [address], [place], [address], 07/25/2023 15:22:25 07/25/19 24 07/25/2023 PT (PROT HROMB IN TIME) W INR prothrombin time 11.0 secon ds 9.3-11 .4 Not Available [facility] ([facility]) [address], [place], [address], 07/25/2023 16:27:47 07/25/19 24 07/25/2023 PT (PROT [...] Mecha nical Heart Valve s Not Available [facility] ([facility]) [address] , [place], [address], 07/25/2023 16:27:47 07/25/19 24 07/25/2023 COMP METAB OLIC PANEL sodium 142 mmol/ L 136-14 5 Not Available [facility] ([facility]) [address] , [place], [address], 07/25/2023 16:32:05 07/25/19 24 07/25/2023 COMP METAB OLIC PANEL potassium 3.7 mmol/ L 3.6-5. 0 Not Available [facility] ([facility]) [address] , [place], [address], 07/25/2023 16:32:05 07/25/19 24 07/25/2023 COMP METAB OLIC PANEL chloride 104 mmol/ L 98-107 Not Available [facility] ([facility]) [address], [place], [address], 07/25/2023 16:32:05 07/25/19 24 07/25/2023 COMP METAB OLIC PANEL carbon dioxide 29.1 mmol/ L 21.0-3 2.0 Not Available [facility] ([facility]) [address], [place], [address], 07/25/2023 16:32:05 07/25/19 24 07/25/2023 COMP METAB OLIC PANEL anion gap 12.6 Not Available [facility] ([facility]) [address], [place], [address], 07/25/2023 16:32:05 07/25/19 24 07/25/2023 COMP METAB OLIC PANEL glucose 85 mg/dL 70-120 Not Available [facility] ([facility]) [address] , [place], [address], 07/25/2023 16:32:05 07/25/19 24 07/25/2023 COMP METAB OLIC PANEL BUN 16 mg/dL 7-18 Not Available [facility] ([facility]) [address], [place], [address], 07/25/2023 16:32:05 07/25/19 24 07/25/2023 COMP METAB OLIC PANEL creatinine 0.8 mg/dL 0.6-1. 3 Not Available [facility] ([facility]) [address] , [place], [address], 07/25/2023 16:32:05 07/25/19 24 07/25/2023 COMP METAB OLIC PANEL glomerular filtration rate >60 mlper min 60- Not Available [facility] ([facility]) [address] , [place], [address], 07/25/2023 16:32:05 07/25/19 24 07/25/2023 COMP METAB OLIC PANEL total protein 7.6 g/dL 6.4-8. 2 Not Available [facility] ([facility]) [address], [place], [address], 07/25/2023 16:32:05 07/25/19 24 07/25/2023 COMP METAB OLIC PANEL albumin 3.5 g/dL 3.4-5. 0 Not Available [facility] ([facility]) [address] , [place], [address], 07/25/2023 16:32:05 07/25/19 24 07/25/2023 COMP METAB OLIC PANEL globulin 4.1 Not Available [facility] ([facility]) [address] , [place], [address], 07/25/2023 16:32:05 07/25/19 24 07/25/2023 COMP METAB OLIC PANEL alb/glob ratio 0.9 0.7-2 Not Available [facility] ([facility]) [address] , [place], [address], 07/25/2023 16:32:05 07/25/19 24 07/25/2023 COMP METAB OLIC PANEL calcium 8.8 mg/dL 8.5-10 .5 Not Available [facility] ([facility]) [address] , [place], [address], 07/25/2023 16:32:05 07/25/19 24 07/25/2023 COMP METAB OLIC PANEL bilirubin total 0.40 mg/dL 0.10-1 .00 Not Available [facility] ([facility]) [address] , [place], [address], 07/25/2023 16:32:05 07/25/19 24 07/25/2023 COMP METAB OLIC PANEL AST (SGOT) 24 U/L 0-37 Not Available [facility] ([facility]) [address] , [place], [address], 07/25/2023 16:32:05 07/25/19 24 07/25/2023 COMP METAB OLIC PANEL ALT (SGPT) 27 U/L 0-65 Not Available [facility] ([facility]) [address], [place], [address], 07/25/2023 16:32:05 07/25/19 24 07/25/2023 COMP METAB OLIC PANEL alk phosphatase 74 U/L 46-116 Not Available [facility] ([facility]) [address], [place], [address], 07/25/2023 16:32:05 07/25/19 24 07/27/2023 FACTO R VIII (8) ACTIV ITY factor VIII (8) activity 159 % 56-140 high Perfo rmed at: [facility] [place] [address] [id number] Lab Direc tor: Linda ho MD, Phone : [phone] Not Available [facility] ([facility]) [address] [facility], [place], [address], 07/27/2023 06:19:41 07/25/19 24 07/27/2023 PROTE IN C FUNTI ONAL protein C functional 102 % 73-180 Perfo rmed at: [facility] - [facility] [place] [address] [place] [address] [facility] Lab Direc tor: Linda ho MD, Phone : [phone] Not Available [facility] ([facility]) [address] [facility], [place], [address], 07/27/2023 06:19:42 07/25/19 24 07/27/2023 PROTE IN [...] at: [facility] [place] [address] , [place] [address] Lab Direc tor: Linda ho MD, Phone : [phone] Not Available [facility] ([facility]) [address], [place], [address], 07/27/2023 06:19:43 07/25/19 24 08/03/2023 FACTO R [...] Facto r V Leide n (PMID : [id number] 767). Ad ditio nal risk facto rs [...] ders to discu ss resul ts at [phone] [phone] (6319 ). . Test Detai ls: Varia nt holly zed: c.*97 G>A, previ ously refer red to as G2021 0 A . Metho ds/Li mitat ions: DNA holly sis of the F2 gene ([id number]) was perfo rmed by P CR [...] e lindy cteri stics deter mined by Noosh rp. It has not been clear ed or appro raquel by the Food and Drug Admin istra tion. . Refer ences : Fernanda Macias, Russ FULTON, Sammy Ho, Radha KING, Lucas in ; [facility] Pro fessi onal Pract ice and Guide lines Commi ttee. Adden dum: Rubio morley e of Medic al Briseyda ics conse nsus state ment on facto r V Leide n muta tion testi ng. Briseyda Med. 2020Sep 11. doi: 10.10 38/s4 1436- 021-0 110 8-x. PMID: 36197 767. . Randi BOYD. Proth rombi n Throm bophi za. 2005Jan 31 Updat ed 2020Aug 13 . In: Ricki MP, Bhaskar contreras HH, Mary RA, et al., edito rs. GeneR bassamw s(R) Inter net . Shyam gipson (HI): Unive rsity of Shyam Lowery; 1992- 2020. Avail able from: https ://ignacio w.ncb i.nlm .nih. gov/b ooks/ NBK11 48/ . Rick Macias, Russ FULTON, Audi X, Amaury B, Spect or EB, Evelyn P, Joel lemus CS; [facility] Labor atory Quali ty Assur ance Commi ttee. Venou s throm da mboli sm labor atory testi ng (fact or V Leide n and facto r II c.*97 G>A), 2018 updat e: a techn ical stand guy of the Ameri can Colle ge of Medic al Briseyda ics and Genom ics ([employer] ). Briseyda Med. 2018 Jun;2 0(12) :148 9-149 8. doi: 10.10 38/s4 1436- 018-0 322-z . Epub 2017Apr 13. PMID: 86395 698. Not Available [facility] ([facility]) [address], [place], [address], 08/03/2023 13:12:27 07/25/19 24 08/03/2023 FACTO R II, DNA HOLLY SIS reviewed by: Tacho camp, PhD Direc tor, Molec ular Briseyda ics Perfo rmed at: TG - [facility] [address] , [place] [address] Lab Direc tor: Yaneth Sullivan [facility] , Phone : [phone] Not Available [facility] ([facility]) [address] , [place], [address], 08/03/2023 13:12:27 10/24/19 24 10/24/2023 CBC AUTO W DIFF WBC 6.9 K/uL 4.0-10 .5 Not Available [facility] ([facility]) [address] , [place], [address], 10/24/2023 16:12:13 10/24/19 24 10/24/2023 CBC AUTO W DIFF RBC 5.7 M/mm3 4.7-6. 1 Not Available [facility] ([facility]) [address] , [place], [address], 10/24/2023 16:12:13 10/24/19 24 10/24/2023 CBC AUTO W DIFF HGB 14.7 gm/dL 13.5-1 8.0 Not Available [facility] ([facility]) [address] , [place], [address], 10/24/2023 16:12:13 10/24/19 24 10/24/2023 CBC AUTO W DIFF HCT 46.0 % 42.0-5 2.0 Not Available [facility] ([facility]) [address], [place], [address], 10/24/2023 16:12:13 10/24/19 24 10/24/2023 CBC AUTO W DIFF MCV 80.4 fL 78-100 Not Available [facility] ([facility]) [address] , [place], [address], 10/24/2023 16:12:13 10/24/19 24 10/24/2023 CBC AUTO W DIFF MCH 25.7 pg 27-31 low Not Available [facility] ([facility]) [address] , [place], [address], 10/24/2023 16:12:13 10/24/19 24 10/24/2023 CBC AUTO W DIFF MCHC 32.0 g/dL 32-36 Not Available [facility] ([facility]) [address] , [place], [address], 10/24/2023 16:12:13 10/24/19 24 10/24/2023 CBC AUTO W DIFF RDW 14.3 % 11.5-1 4.0 high Not Available [facility] ([facility]) [address] , [place], [address], 10/24/2023 16:12:13 10/24/19 24 10/24/2023 CBC AUTO W DIFF platelet count 258 K/uL 150-45 0 Not Available [facility] ([facility]) [address] , [place], [address], 10/24/2023 16:12:13 10/24/19 24 10/24/2023 CBC AUTO W DIFF MPV 9.6 fL 6-9.5 high Not Available [facility] ([facility]) [address] , [place], [address], 10/24/2023 16:12:13 10/24/19 24 10/24/2023 CBC AUTO W DIFF neutrophil% 70.1 % 43-65 high Not Available [facility] ([facility]) [address], [place], [address], 10/24/2023 16:12:13 10/24/19 24 10/24/2023 CBC AUTO W DIFF lymphocyte% 18.4 % 20.5-4 5.5 low Not Available [facility] ([facility]) [address], [place], [address], 10/24/2023 16:12:13 10/24/19 24 10/24/2023 CBC AUTO W DIFF monocyte% 8.7 % 5.5-11 .7 Not Available [facility] ([facility]) [address], [place], [address], 10/24/2023 16:12:13 10/24/19 24 10/24/2023 CBC AUTO W DIFF eosinophil% 2.3 % 0.9-2. 9 Not Available [facility] ([facility]) [address], [place], [address], 10/24/2023 16:12:13 10/24/19 24 10/24/2023 CBC AUTO W DIFF basophil% 0.4 % 0.2-1. 0 Not Available [facility] ([facility]) [address] [place], [address], 10/24/2023 16:12:13 10/24/19 24 10/24/2023 CBC AUTO W DIFF immature granulocytes % 0.1 % 0.0-0. 8 Not Available [facility] ([facility]) [address] [place], [address], 10/24/2023 16:12:13 10/24/19 24 10/24/2023 CBC AUTO W DIFF nucleated red blood cells % 0.0 % Not Available [facility] ([facility]) [address] [facility], [place], [address], 10/24/2023 16:12:13 10/24/19 24 10/24/2023 CBC AUTO W DIFF neutrophil# 4.8 K/uL 2.2-4. 8 Not Available [facility] ([facility]) [address], [place], [address], 10/24/2023 16:12:13 10/24/19 24 10/24/2023 CBC AUTO W DIFF lymphocyte# 1.3 cell/ mcL 1.3-2. 9 Not Available [facility] ([facility]) [address], [place], [address], 10/24/2023 16:12:13 10/24/19 24 10/24/2023 CBC AUTO W DIFF monocyte# 0.6 cell/ mcL 0.3-0. 8 Not Available [facility] ([facility]) [address], [place], [address], 10/24/2023 16:12:13 10/24/19 24 10/24/2023 CBC AUTO W DIFF eosinophil# 0.2 cell/ mcL 0-0.2 Not Available [facility] ([facility]) [address], [place], [address], 10/24/2023 16:12:13 10/24/19 24 10/24/2023 CBC AUTO W DIFF basophil# 0.0 cell/ mcL 0.0-1. 0 Not Available [facility] ([facility]) [address], [place], [address], 10/24/2023 16:12:13 10/24/19 24 10/24/2023 CBC AUTO W DIFF immature gramulocytes # 0.01 K/uL Not Available [facility] ([facility]) [address], [place], [address], 10/24/2023 16:12:13 10/24/19 24 10/24/2023 CBC AUTO W DIFF nucleated red blood cells # 0.00 K/uL Not Available [facility] ([facility]) [address], [place], [address], 10/24/2023 16:12:13 10/24/19 24 10/24/2023 CBC AUTO W DIFF manual differential NO Not Available [facility] ([facility]) [address], [place], [address], 10/24/2023 16:12:13 10/24/19 24 10/24/2023 COMP METAB OLIC PANEL sodium 139 mmol/ L 136-14 5 Not Available [facility] ([facility]) [address], [place], [address], 10/24/2023 16:42:07 10/24/19 24 10/24/2023 COMP METAB OLIC PANEL potassium 4.0 mmol/ L 3.6-5. 0 Not Available [facility] ([facility]) [address], [place], [place], [address], 10/24/2023 16:42:07 10/24/19 24 10/24/2023 COMP METAB OLIC PANEL chloride 104 mmol/ L 98-107 Not Available [facility] ([facility]) [address], [place], [address], 10/24/2023 16:42:07 10/24/19 24 10/24/2023 COMP METAB OLIC PANEL carbon dioxide 28.1 mmol/ L 21.0-3 2.0 Not Available [facility] ([facility]) [address], [place], [address], 10/24/2023 16:42:07 10/24/19 24 10/24/2023 COMP METAB OLIC PANEL anion gap 10.9 Not Available [facility] ([facility]) [address] , [place], [address], 10/24/2023 16:42:07 10/24/19 24 10/24/2023 COMP METAB OLIC PANEL glucose 99 mg/dL 70-120 Not Available [facility] ([facility]) [address] , [place], [address], 10/24/2023 16:42:07 10/24/19 24 10/24/2023 COMP METAB OLIC PANEL BUN 16 mg/dL 7-18 Not Available [facility] ([facility]) [address] , [place], [address], 10/24/2023 16:42:07 10/24/19 24 10/24/2023 COMP METAB OLIC PANEL creatinine 0.9 mg/dL 0.6-1. 3 Not Available [facility] ([facility]) [address] , [place], [address], 10/24/2023 16:42:07 10/24/19 24 10/24/2023 COMP METAB OLIC PANEL glomerular filtration rate >60 mlper min 60- Not Available [facility] ([facility]) [address] , [place], [address], 10/24/2023 16:42:07 10/24/19 24 10/24/2023 COMP METAB OLIC PANEL total protein 7.2 g/dL 6.4-8. 2 Not Available [facility] ([facility]) [address] , [place], [address], 10/24/2023 16:42:07 10/24/19 24 10/24/2023 COMP METAB OLIC PANEL albumin 3.6 g/dL 3.4-5. 0 Not Available [facility] ([facility]) [address] , [place], [address], 10/24/2023 16:42:07 10/24/19 24 10/24/2023 COMP METAB OLIC PANEL globulin 3.6 Not Available [facility] ([facility]) [address] [place], [address], 10/24/2023 16:42:07 10/24/19 24 10/24/2023 COMP METAB OLIC PANEL alb/glob ratio 1.0 0.7-2 Not Available [facility] ([facility]) [address], [place], [address], 10/24/2023 16:42:07 10/24/19 24 10/24/2023 COMP METAB OLIC PANEL calcium 8.6 mg/dL 8.5-10 .5 Not Available [facility] ([facility]) [address] , [place], [address], 10/24/2023 16:42:07 10/24/19 24 10/24/2023 COMP METAB OLIC PANEL bilirubin total 0.50 mg/dL 0.10-1 .00 Not Available [facility] ([facility]) [address], [place], [address], 10/24/2023 16:42:07 10/24/19 24 10/24/2023 COMP METAB OLIC PANEL AST (SGOT) 23 U/L 0-37 Not Available [facility] ([facility]) [address], [place], [address], 10/24/2023 16:42:07 10/24/19 24 10/24/2023 COMP METAB OLIC PANEL ALT (SGPT) 39 U/L 0-65 Not Available [facility] ([facility]) [address] , [place], [address], 10/24/2023 16:42:07 10/24/19 24 10/24/2023 COMP METAB OLIC PANEL alk phosphatase 80 U/L 46-116 Not Available [facility] ([facility]) [address] , [place], [address], 10/24/2023 16:42:07 10/25/19 24 10/26/2023 SEDIM ENTAT ION RATE- WESTE RGREN sedimentatio n rate-westerg los 5 mm/HR 0-15 Not Available [facility] ([facility]) [address] [facility], [place], [address], 11/03/2023 15:11:19 10/25/19 24 10/27/2023 C-CHANA CTIVE PROTE IN, QUANT C-reactive protein, quant 15 mg/L 0-10 above high normal Not Available [facility] ([facility]) [address] [facility], [place], [address], 11/03/2023 15:11:21 04/23/20 24 04/23/2024 C-CHANA CTIVE PROTE IN (CRP) C-reactive protein, quant 1.1 mg/dL 0.05-0 .300 high Not Available [facility] ([facility]) [address] [facility], [place], [address], 04/23/2024 10:36:29 04/23/20 24 04/23/2024 SED RATE sed rate auto 4 0-15 Not Available [facility] ([facility]) [address] [facility], [place], [address], 04/23/2024 10:54:51 11/20/19 24 11/20/2023 vengonzalez s duple x US lwr RT ext [facility] [address] [place] [address] Phone: Fax: Name: GAYATHRI DENNIS Exam Date: 024 : 1979 Age 43 years Gender : M Access ion: [id number] Physic lou: LUCI BRADFORDi ty: [facility] Facili ty HSV: Outpat ient Exam: [...] by: Jose Luciano Thank you for referr GAYATHRI Rodríguez to [facility]. Legall y authen ticate d by JADYN DÍAZ 11-19 11:51: 02 CC'ed Logic: Orderi ng Provid er: SPENCER OSUNA Attend ing Provid er: SPENCER OSUNA Referr ing Provid er: SPENCER OSUNA Admitt ing Provid er: SPENCER OSUNA giovany[address] - Physical Therapy [facility] [facility], [place], [address], 11/20/2023 12:58:54 11/20/19 24 11/20/2023 CT, angio gram, chest , w/ contr ast [facility] [address] [place] [address] Phone: Fax: Name: GAYATHRI DENNIS Exam Date: : 1979 Age 43 years Gender : M Access ion: [id number] Physic lou: LUCI BRADFORD Facili ty: [place] Facili ty HSV: Outpat ient Exam: CTA CHEST PE EXAM: CT PULMON NATALY ANGIOG LOUIES INDICA TION: SOB TECHNI QUE: Helica l [...] ribed By: Jose Sebastian Transc ribed On: 024 12:06 PM Legall y authen ticate d by JADYN DÍAZ 11-19 12:06: 58 Electr onical ly signed by: Jadyn Sebastian , Jose 024 Thank you for referr GAYATHRI Rodríguez to [facility] al. Legall y authen ticate d by JADYN FarnsworthGAMAFouzia Macias IVO 11-19 12:06: 58 CC'ed Logic: Orderi ng Provid er: SPENCER OSUNA Attend ing Provid er: SPENCER OSUNA Referr ing Provid er: SPENCER OSUNA Admitt ing Provid er: SPENCER OSUNA [email or web address] [facility] - Physical Therapy [address] [place] [address], [place], [address], 11/21/2023 16:18:56 Result Notes Documentation Provider Name and Address Organization Details Recorded Time Ct, Angiogram, Chest, W/ Contrast : [address] [address] Name: WON DENNIS Exam Date: 11/20/2023 : 1980 Age 43 years Gender: M Physician: LUCI BARNES Facility: [facility] Facility HSV: Outpatient Exam: CTA CHEST [...] Thank you for referring WON DENNIS to [facility]. Legally authenticated by RENALDO DÍAZ 2023-11-20 12:06:58 CC'ed Logic: Ordering Provider: MOLLY OSUNA Attending Provider: MOLLY OSUNA Referring Provider: MOLLY OSUNA Admitting Provider: MOLLY jaramillo, [place] [facility] [place] [facility] [place] 11/21/2023 16:18:56 Problems Name Problem SNOMED Code Status Onset Date Resolution Date Notes Provider Name and Address Organization Details Recorded Time Methicillin resistant Staphylococ cus aureus infection 205520294 Active 2023 Amy jaramillo [place] [facility] [place] [facility] [place] 4 10:16:00 High risk medication monitoring indicated 3498661716554 9103 Active 2023 Amy jaramillo [place] [facility] [place] & [place] 4 10:16:36 Problem Notes None recorded. Procedures Surgical History Date Name Laterality Status Provider Name and Address Organization Details Recorded Time 03/26/20 [address], [place], [address], [place] [facility] [place] [facility] [place] 03/18/2024 14:56:10 10/24/19 24 [place], [address], YVON Farnsworth [facility] & [place] 10/23/2023 10:53:19 07/25/19 24 Venipuncture completed Sarah SANZ [facility] & [place] 07/25/2023 14:41:20 amputation of lower limb completed Sarah Farnsworth [facility] & [place] 07/25/2023 13:57:05 Imaging Results None recorded. Procedure Notes None recorded. Medical Equipment None Reported. Allergies Allergen ID Allergen Name Allergen Category Reaction Reaction Severity Criticality Documentation Date Start Date Code Code System Note Provider Name and Address Organization Details Recorded Time 233166 cefdinir medicatio n Not available Not available Not available 06/02/2023 55988 RxNorm Isabel jaramillo, [facility] & [place] 10:06:00 Medications Name Sig Start [...] active Not Available Not Available Not Available [facility] 10 billion cell-200 mg sprinkle capsule active [...] [degF] 96 % 96 % 81 /min 322087. 75 g 81 /min Isabel Abdullahiey [facility] & [place] 4 08:59:33 Date Recorded Body weight Body temperature Heart rate Oxygen saturation Oxygen saturation in Arterial blood by Pulse oximetry Systolic And Diastolic Provider Name and Address Organization Details Last Updated DateTime 4 712627. 53 g 97.8 [degF] 89 /min 95 % 95 % 134/82 mm[Hg] [facility] [place] 4 13:54:07 Date Recorded Body height Body mass index (BMI) Body weight Body temperature Heart rate Oxygen saturation Oxygen saturation in Arterial blood by Pulse oximetry Systolic And Diastolic Provider Name and Address Organization Details Last Updated DateTime 4 182.88 cm 43.3 kg/m2 816923. 97 g 98 [degF] 95 /min 96 % 96 % 137/92 mm[Hg] [facility] [place] 4 14:44:48 Date Recorded Body height Body mass index (BMI) Body weight Body temperature Oxygen saturation Oxygen saturation in Arterial blood by Pulse oximetry Heart rate Systolic And Diastolic Provider Name and Address Organization Details Last Updated DateTime 4 182.88 cm 43.2 kg/m2 646301. 81 g 98.6 [degF] 95 % 95 % 86 /min 134/84 mm[Hg] Amy Aquino [facility] & [place] 4 08:59:12 Date Recorded Body height Body mass index (BMI) Body weight Body temperature Oxygen saturation Oxygen saturation in Arterial blood by Pulse oximetry Heart rate Systolic And Diastolic Provider Name and Address Organization Details Last Updated DateTime 4 182.88 cm 42.9 kg/m2 495181. 19 g 98 [degF] 94 % 94 % 70 /min 140/80 mm[Hg] Kalie Gibbs [facility] & [place] 4 09:24:00 Social History None recorded. Functional Status Question Answer Note LastModified by Organizat ion Details LastModified Time Do you use any illicit or recreational drugs? No [email or web address] Information not available 07/25/2023 What is your level of alcohol consumption? Occasional [email or web address] Information not available 07/25/2023 Mental Status None recorded. Family History Nothing Reported. Medical History No medical history recorded. Immunizations Vaccine Type Date Status Note Provider Nam e and Address Organization Details Recorded Time Td (adult), 2 Lf tetanus toxoid, preservative free, adsorbed 6 completed Sarah jaramillo [facility] & [place] 07/25/2023 13:54:15 Past Encounters Encounter ID Performer Location Encounter Start Date Encounter Closed Date Diagnosis/Indication Diagnosis SNOMED-CT Code Diagnosis ICD10 Code Diagnosis IMO Codes Diagnosis Note [id number] Randy Torres MD [facility] Disease [address] [place] [address] 06/02/2023 09:54:50 06/02/2023 10:26:43 Osteomyelitis 26552479 M86.9 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 Influenza caused by Influenza A virus 245672789 J09.X2 Resolved.. No further oseltamivi r needed. High risk medication monitoring indicated 0322549528 6818995 Z76.89 Related to the daptomycin . I will check a total CK and continue to follow serial levels of this enzyme to make sure he develops no rhabdomyol ysis. [id number] Randy Torres MD [facility] [address] [place] [address] 06/09/2023 10:23:03 06/09/2023 10:54:12 Osteomyelitis 26026464 M86.9 Occurring in the right BKA stump [...] time. Methicilli n resistant Staphylococcus aureus infection 329748195 A49.02 As above High risk medication monitoring indicated 6069978299 1064106 Z76.89 This is related to the daptomycin . I will continue to monitor his total CK levels closely. [id number] Randy Torres MD [facility] [address] [place] [address] 06/28/2023 10:37:09 06/28/2023 11:22:08 Osteomyelitis 95009496 M86.9 Occurring in the right BKA stump [...] week. Methicilli n resistant Staphylococcus aureus infection 881828745 A49.02 As above [id number] Randy Torers MD [facility] Disease [address] [place] [address] 07/06/2023 09:38:06 07/06/2023 10:00:10 Osteomyelitis 93431532 M86.9 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 Methicilli n resistant Staphylococcus aureus infection 537272169 A49.02 As above Adverse re action to drug 64000003 T50.905A Related to doxycyclin e. This is gastrointe stinal in nature. I will check his liver function testing to make sure he is not developing any hepatotoxi city. I will drop the dose to 100 mg per day. I want him to continue to take it with food. I will re-evaluat e next week. [id number] Randy Torres MD [facility] Disease [address] [place] [address] 07/12/2023 08:53:12 07/12/2023 09:54:35 Osteomyelitis 12831892 M86.9 Occurring in the right BKA stump [...] month. Methicilli n resistant Staphylococcus aureus infection 282701528 A49.02 As above [id number] Luci Barnes PA-C [facility] [address] [place] [address] 07/25/2023 13:39:19 07/26/2023 06:33:52 Deep venous thrombosis 025874860 I82.409 Patient has a history of osteomyeli [...] performed when patient was hospitaliz ed at [facility] on May 26, 2023 with normal antithromb in 3 activity. No evidence of factor 5 Leiden mutation. Discussed with patient will order additional labs for further evaluation acquired hypercoagu lable disorder today. Discussed will likely continue on least the prophylact ic dose of Eliquis lifelong due to separate occurrence s of blood clots. Pulmonary embolism 52878 003 I26.99 Patient has a history of [...] s of blood clots. Anticoagulant therapy 18 0613168 Z79.01 Patient continues on Eliquis 5 mg 1 tab p.o. b.i.d.. He is tolerating without trouble. Discussed will likely continue on least the prophylact ic dose of Eliquis lifelong due to separate occurrence s of blood clots. [id number] Luci Barnes PA-C [facility] [address] [place] [address] 10/24/2023 14:29:27 10/24/2023 15:33:34 Deep venous thrombosis 855378202 I82.409 Patient has a history of osteomyeli [...] performed when patient was hospitaliz ed at [facility] on May 26, 2023 with normal antithromb [...] Will follow up labs today. Pulmonary embolism 47581 003 I26.99 Patient has a history of [...] follow up labs today. Anticoagulant therapy 18 0030647 Z79.01 Patient continues on Eliquis 5 mg 1 tab p.o. b.i.d.. He is tolerating without trouble. Discussed will continue on least the prophylact ic dose of Eliquis lifelong due to separate occurrence s of blood clots. Will follow up venous duplex of lower extremity and chest CTA to make sure no evidence of embolism before reducing Eliquis dose to 2.5 mg b.i.d. [id number] Randy Torres MD [facility] Infect[facility] Disease [address] [place] [address] 10/25/2023 08:49:58 10/25/2023 10:57:40 Osteomyelitis 17555132 M86.9 Occurring in the right BKA stump [...] months. Methicilli n resistant Staphylococcus aureus infection 306221750 A49.02 As above High risk medication monitoring indicated 0415567263 9137058 Z76.89 This is related to the chronic suppressiv e doxycyclin e. I reviewed his liver function testing from yesterday. There is no evidence of any hepatotoxi city. I will continue to monitor this at each visit. I also counseled him about the risk of photosensi tivity with doxycyclin e. [id number] Randy Torres MD [facility] Infect[facility] Disease -[address] [facility] [address] [place] [address] 04/23/2024 09:14:33 04/23/2024 09:34:49 Osteomyelitis 57132799 M86.9 Occurring in the right BKA stump [...] month. Methicilli n resistant Staphylococcus aureus infection 954956156 A49.02 As above Health Concerns Section Related Observation LastModified by Organization Detai ls LastModified Time None Recorded Concern Status LastModified by Organization Details LastModified Time None Recorded Advance Directives Directive None Recorded Payers Insurance Date Sequence Insurance Name Policy Number Policy Brantley Covered Member ID Brantley Member ID Guarantor Name 01/27/2024 1 [place] [id number] Won Dennis [id number] Won Dennis 05/18/2024 1 LENNY Dennis [id number] Won Dennis Notes Date Note Type Note Provider Name and Address Organization Details Recorded Time 07/12/2023 text/html ROS as noted in the HPI This is a 42-year-old white male following up with mo for right BKA stump osteomyelitis due to [...] incision remains completely healed. Randy Torres MD [address], [place], [address], [place] [facility] [place] [facility] [place] 07/12/2023 09:50:44 07/25/2023 text/html 43-year-old [...] Labs performed when patient was hospitalized at [facility] on May 26, 2023 with normal antithrombin 3 activity. No evidence of factor 5 Leiden mutation. Discussed with patient will order additional labs for further evaluation acquired hypercoagulable disorder today. Discussed will likely continue on least the prophylactic dose of Eliquis lifelong due to separate occurrences of blood clots. Luci Barnes PA-C [address], [place], [address], [place] [facility] & [place] 07/25/2023 15:32:35 10/24/2023 text/html 43-year-old [...] Labs performed when patient was hospitalized at [facility] on May 26, 2023 with normal antithrombin [...] follow up labs today. Luci Barnes PA-C [address] , [place], [address], [place] [facility] & [place] 10/24/2023 15:43:34 10/25/2023 text/html ROS [...] well. 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 Since his debridement, he completed 6 weeks of intravenous daptomycin and 1 year of suppressive doxycycline. He is remained infection free. His stump is fully healed. No fever. No other issues. He is tolerating the doxycycline well. Randy Torres MD [address], [place], [address], [facility] - [facility] & [place] 04/23/2024 09:31:22
--- OUTSIDE RECORDS SUMMARY | 2025-04-13 10:40 | XMS_ITS | Clinical Summary ---
Author Organization [facility] Address [address] [place] [address] Phone Care Team Providers Care Clamshell Engineer Name Role Phone Unavailable Unavailable Conditions or Problems No information available. Medications No information available. Medications Administered No information available. Allergies, Adverse Reactions, Alerts No information available. Results No information available. Plan of Care No information available. Procedures No information available. Vital Signs No information available. Immunizations No information available. Advance Directives No information available.
--- OUTSIDE RECORDS SUMMARY | 2025-04-13 10:41 | XMS_ITS | Patient Health Record ---
Author Organization [facility] [address] [place] [id number] Care Team Providers Care Enrollment Processor Name Role Phone Zeeshan Salazar Primary Care [...] W/U Status Risk Notes Problem Essential hypertension (70758908) HTN [Hypertension] (401.9) Active confirmed appears resolved Problem Hypothyroidism (86425841) Hypothyroidism NOS (244.9) Active confirmed Problem Hyperlipidemia (43863674) Hyperlipidemia (272.4) Active confirmed Problem Constipation (75556760) Constipation, unspecified constipation type (K59.00) Active confirmed Problem History of pulmonary embolism on long-term anticoagulation therapy (84326968944868497 ) Hx pulmonary embolism (Z86.711) Active confirmed Problem Long-term current use of anticoagulant (417534818) Current use of long-term anticoagulation (Z79.01) Active confirmed Problem Adjustment disorder with anxious mood (77911035) Adjustment disorder with anxious mood (F43.22) Active confirmed Problem History of pulmonary embolus (351601480) History of pulmonary embolus (PE) (Z86.711) Active confirmed Problem Methicillin resistant Staphylococcus aureus infection (disorder) (849033339) Infection of wound due to methicillin resistant Staphylococcus aureus (MRSA) (A49.02) Active confirmed Problem Arthritis of knee (763192575) Arthritis of knee (M17.10) Active confirmed Problem Amputated below knee (784553244) Status post below knee amputation of right lower extremity (Z89.511) Active confirmed Problem Gastroesophageal reflux disease (982622509) Gastroesophageal reflux disease, unspecified whether esophagitis present [...]
--- OUTSIDE RECORDS SUMMARY | 2025-04-13 10:41 | XMS_ITS | Encounter Summary ---
Author Organization Healthcare Address [address] [place] [address] Care Team Providers Care Change Management Name Role Phone Unavailable Primary Care Provider Unavailabl e Encounter Details Date Type Department Care Team (Late st Contact Info) Description 05/17/2023 Lab Requisition [facility] [address] [place] [address] Sushil Dean MD [address] [facility] [address] [place] [address] Encounter for general adult medical examination without [...] O RDERABLES Final Result Performing Organization Address City/[facility] Co de Phone Number [facility] [address] [place] [address] * Bone Culture and Gram Stain (05/17/2023 [...] O RDERABLES Final Result Performing Organization Address [facility] Co de Phone Number [facility] [address] [place] [address] documented in this encounter Visit Diagnoses Diagnosis Encounter for general adult medical examination without abnormal findings documented in this encounter
--- OUTSIDE RECORDS SUMMARY | 2025-04-13 10:41 | XMS_ITS | Encounter Summary ---
Author Organization [facility] Address [address] [place] [address] Care Team Providers Care Jukebox Route Driver Name Role Phone Provider, No Known Primary Care Provider Unavail able Encounter Details Date Type Department Care Team (Latest Contact Info) Description 04/04/2025 Travel Social History Tobacco Use Types Packs/Day Years Used Date Smoking Tobacco: Never Assessed AUDIT-C Answer Date Recorded Q1: How often do you have a drink containing alcohol? Never 04/05/2025 Q2: How many drinks containi ng alcohol do you have on a typical day when you are drinking? Patient does not drink Q3: How often do you have si x or more drinks on one occasion? Never 04/05/2025 Abuse Screen Answer Date Recorded Feels Unsafe at Home or Work/School no 04/04/2025 Feels Threatened by Someone no 03/11 Does Anyone Try to Keep You From Having Contact with Others or Doing Things Outside Your Home? no 04/04/2025 Physical Signs of Abuse Present no 04/04/2025 Housing Stability Answer Date Recorded Current Living Arrangements home 03/11 Potentially Unsafe Housing Conditions Not on suzie e 04/05/2025 Family and Community Support Answer Michael e Recorded Help with Day-to-Day Activities Not on file 05/09/2023 Lonely or Isolated Not on file 05/09/2023 Employment Answer Date Recorded Do you want help finding or keeping work or a maryann b? Not on file 05/09/2023 Disabilities Answer Date Recorded Difficulty Concentrating, Remembering or Making Decisions no 04/05/2025 Difficulty Managing Errands Independently no 04/05/2025 Education Answer Date Recorded Help with school or training? Not on file Preferred Language Not on file 05/09/2023 Sex and Gender Information Value Date Recorded Sex Assigned at Not on file Legal Sex Male 7:30 PM EDT Gender Identity Not on file Sexual Orientation Not on file documented as of this encounter Functional Status * Calculated C-SSRS Risk Score (Lifetime/Recent) Answer Date of Assessment Author No Risk Indicated 04/04/2025 2:25 PM EDT Cherri Grimm RN * Casey Suicide Severity Rating Scale (Screener/Recent Self-Report) Question Answer Date of Assessment Author 1. Wish to be (Past 1 Month) No 025 2:25 PM EDT Cherri Garcia RN 2. Non-Specific Active Suici mickey Thoughts (Past 1 Month) No 04/04/2025 2:25 PM EDT Wesley Garcia RN 6. Suicidal Behavior (Lifetime) No 5 2:25 PM EDT Cherri Garcia RN documented as of this encounter Plan of Treatment Not on file documented as of this encounter Visit Diagnoses Not on filedocumented in this encounter Additional Health Concerns Infection Onset Date Last Indicated Resolved Time MRSA 05/09/2023 04/07/2025 documented as of this encounter Care Teams Jukebox Route Driver Relationship Specialty Start Date End Date Provider, No Known [facility] [place] [address] PCP - General 05/09/23 documented as of this encounter
--- OUTSIDE RECORDS SUMMARY | 2025-04-13 10:41 | XMS_ITS | Encounter Summary ---
Author Organization Healthcare Address [address] [place] [address] Care Team Providers Care Cycle Touring Guide Name Role Phone Unavailable Primary Care Provider Unavailabl e Encounter Details Date Type Department Care Team (Late st Contact Info) Description 10/01/2022 Lab Requisition [facility] [address] [place] [address] Sushil Dean MD [address] [facility]. [address] [place] [address] Encounter for general adult medical examination without [...] has been identified using the FDA Approved Rawlemonyper CA System The organism value for this [...] 10/04/2022 2:17 PM EDT Refer to culture [id number] FOR SUSCEPTIBILITIES ON NEELIMA ALBICANS us Sushil Dean MD LAB MICROBIOLOGY - GENERAL O RDERABLES Final Result [facility] [address] [place] [id number] documented in this encounter Visit Diagnoses Diagnosis Encounter for general adult medical examination without abnormal findings documented in this encounter
--- OUTSIDE RECORDS SUMMARY | 2025-04-13 10:41 | XMS_ITS | Encounter Summary ---
Author Organization Healthcare Address [address] [place] [address] Care Team Providers Care Rnp Name Role Phone Unavailable Primary Care Provider Unavailabl e Encounter Details Date Type Department Care Team (Late st Contact Info) Description 07/20/2022 Lab Requisition [facility] [address] [place] [address] Sushil Dean MD [address] [place] [address] Encounter for general adult medical examination without [...]
--- OUTSIDE RECORDS SUMMARY | 2025-04-13 10:41 | XMS_ITS | Encounter Summary ---
Author Organization [facility] Address [address] [place] [address] Care Team Providers Care Automatic Trimming Sewer Name Role Phone Unavailable Primary Care Provider Unavailabl e Encounter Details Date Type Department Care Team (Late st Contact Info) Description 10/03/2022 Lab Requisition [facility] [address] [place] [address] Dalila Cox MD [address] [place], [place] [id number] Encounter for general adult medical examination without [...] Culture Neelima albicans(A) 10/05/2022 11:58 AM EDT [facility] Comment: This result was determined by MALDI tof Mass spectrometry. This assay was developed and its performance characteristics determined by [facility] as appropriate for clinical purposes. [...] Edited Result - Final [facility] [address] [place] [address] documented in this encounter Visit Diagnoses Diagnosis Encounter for general adult medical examination without abnormal findings documented in this encounter
--- OUTSIDE RECORDS SUMMARY | 2025-04-13 10:41 | XMS_ITS | Encounter Summary ---
Author Organization Healthcare Address [address] [place] [address] Care Team Providers Care Nurses Director Name Role Phone Unavailable Primary Care Provider Unavailabl e Encounter Details Date Type Department Care Team (Late st Contact Info) Description 05/13/2023 Lab Requisition [facility] [address] [place] [address] Sushil Dean MD [address] [facility]. [address] [place] [address] Encounter for general adult medical examination without [...] O RDERABLES Final Result Performing Organization Address [facility] Co de Phone Number [facility] [address] [place] [address] * Anaerobic Culture (05/13/2023 9:17 AM EDT) Culture No growth at day 4 05/20/2023 10:35 AM EST [facility] Bone 05/13/2023 9:17 AM EDT 05/13/2023 1:25 PM EDT us Sushil Dean MD LAB MICROBIOLOGY - GENERAL O RDERABLES Final Result Performing Organization Address [facility] de Phone Number [facility] [address] [place] [address] * Bone Culture and Gram Stain (05/13/2023 [...] O RDERABLES Final Result Performing Organization Address [facility] de Phone Number [facility] [address] [place] [address] documented in this encounter Visit Diagnoses Diagnosis Encounter for general adult medical examination without abnormal findings documented in this encounter
--- OUTSIDE RECORDS SUMMARY | 2025-04-13 10:41 | XMS_ITS | Clinical Summary ---
Author Organization [facility] Address [address] [place] [address] Care Team Providers Care Commercial Loan Reviewer Name Role Phone Provider, No Known Primary Care Provider Unavail able Allergies Active Allergy Reactions Criticality Noted Date Comments Cefuroxime Nausea And Vomiting 04/04/2025 Cephalexin Nausea And Vomiting 04/04/2025 Latex Rash Low 04/04/2025 Medications Eliquis 5 MG tablet tablet Take 1 tablet by mouth Every 12 (Twelve) Hours. 5 Active atorvastatin (LIPITOR) 40 MG tablet Take 1 tablet by mouth Every Night. 5 Active Symbicort 160-4.5 MCG/ACT inhaler Inhale 2 puffs 2 (Two) Times a Day. 5 Active ezetimibe (ZETIA) 10 MG tablet Take 1 tablet by mouth Every Night. 5 Active famotidine (PEPCID) 20 MG tablet Take 1 tablet by mouth 2 (Two) Times a Day. 5 Active FeroSul 325 (65 Fe) MG tablet Take 1 tablet by mouth 2 (Two) Times a Day With Meals. 5 Active furosemide (LASIX) 20 MG tablet Take 1 tablet by mouth Daily. 5 Active hydroCHLOROthia zide 12.5 MG tablet Take 1 tablet by mouth Daily. 5 Active omega-3 acid ethyl esters (LOVAZA) 1 g capsule Take 1 capsule by mouth Every Night. 5 Active oxybutynin XL (DITROPAN-XL) 10 MG 24 hr tablet Take 1 tablet by mouth Every Night. 5 Active sertraline (ZOLOFT) 100 MG tablet Take 1 tablet by mouth Every Night. Active tamsulosin (FLOMAX) 0.4 MG capsule 24 hr capsule Take 1 capsule by mouth Every Night. Active coenzyme Q10 100 MG capsule Take 2 capsules by mouth Daily. Active oxyCODONE (ROXICODONE) 5 MG immediate release tabletIndicatio ns:Right BKA infection Take 1 tablet by mouth Every 4 (Four) Hours As Needed for Moderate Pain. 42 tablet Active acetaminophen (TYLENOL) 500 MG tablet Take 1 tablet by mouth Every 6 (Six) Hours As Needed for Mild Pain, Headache or Fever. Active DAPTOmycin 800 mg in sodium chloride 0.9 % 50 mLIndications:S kin and Soft Tissue Infection Infuse 800 mg into a venous catheter Daily for 4 doses. Indications: Infection of the Skin and/or Soft Tissue 5 04/16/20 Active saccharomyces boulardii (FLORASTOR) 250 MG capsule Take 1 capsule by mouth 2 (Two) Times a Day. 60 capsule Active doxycycline (VIBRAMYICN) 100 MG tablet Take 1 tablet by mouth 2 (Two) Times a Day. 5 04/11/20 Discontinu ed(Stop Taking at Discharge) Lactobacillus-I nulin ([facility]) capsule Take 200 mg by mouth Daily. 5 04/11/20 Discontinu ed(Stop Taking at Discharge) valsartan (DIOVAN) 40 MG tablet Take 1 tablet by mouth Every Night. 5 04/11/20 Discontinu ed(Stop Taking at Discharge) tadalafil 20 MG tablet tablet Take 1 tablet by mouth Every Night. 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 Encounters Date Type Department Care Team Description 04/08/2025 3:34 PM EDT Anesthesia Event [facility] [address] [place] [id number] Ulises Hoffman MD Wells, Jeremy B., MD 04/08/2025 2:45 PM EDT - 04/08/2025 4:04 PM EDT Surgery [facility] OR [address] [place] [address] Sushil Dean Jr., MD LEG DEBRIDEMENT AND IRRIGATION 04/07/2025 8:36 PM EDT Anesthesia Event [facility] OR [address] [place] [address] Luci Alonso DO 04/07/2025 6:00 PM EDT - 04/07/2025 6:52 PM EDT Surgery [facility] OR [address] [place] [address] Sushil Dean Jr., MD LEG DEBRIDEMENT, IRRIGATION 04/04/2025 4:10 PM EDT - 04/11/2025 1:58 PM EDT Hospital Encounter [facility] [address]G [address] [place] [address] Mario Crowley DO Anderson, Laurie, MD Gay, Bryce, DO Varney, M Scott, Cellulitis of right lower extremity (Primary Dx); Below-knee amputation of right lower extremity, initial encounter; Right BKA infection Discharge Disposition: Home or Self Care 04/04/2025 Travel from Last 3 Months Immunizations Immunization Administration Dates Next Due Td (TDVAX) 02/05/1996 Tdap 03/11/2025,07/29/2017 Social History Tobacco Use Types Packs/Day Years Used Date Smoking Tobacco: Never Smokeless Tobacco: Never Tobacco Cessation:Counseling Given: Not Answered Alcohol Use Standard Drinks/Week Comments Not Currently 0 (1 standard drink = 0.6 oz pur e alcohol) [facility] Utilities Answer Date Recorded In the past 12 months has [employer], gas, oil, or water [employer] threatened to shut off services in your [...] or training? Not on file Preferred Language Cuban 04/07/2025 Sex and Gender Information Value Date [...] Mass Index 41.14 04/04/2025 2:25 PM EDT Plan of Treatment Health Maintenance Due Date Last Done Comments ANNUAL PHYSICAL 1980 HEPATITIS C SCREENING 1980 INFLUENZA VACCINE 02/07/2025 TDAP/TD VACCINES (4 - Td or Tdap) 03/11/2035 03/11/2025, 07/29/2017, 02/05/1996 Pneumococcal Vaccine 0-49 Aged Out No longer eligible based on patient's age to complete this topic Medical Devices Implanted Type Area Wet Inspector Optical Glass Device Identifier Shelf Expiration Date Model / Serial / Lot Dev Wnd/Cls Contrl Tiss Stratafix Spiral Pls Pds Ct1 0 22cm - [id number] Implanted:Qty: 1 on 04/08/2025 by Sushil Dean Jr., MD at [facility] Implant Right: Leg [employer] J [employer] J 12/07/2025 [id number] / / [id number] Procedures Procedure Name Priority Date/Time Associated Diagnosis Comments CBC AND DIFFERENTIAL Routine 04/11/2025 3:40 AM EDT CBC WITH AUTO DIFFERENTIAL Routine 04/11/2025 3:40 AM EDT COMPREHENSIVE METABOLIC PANEL Routine 04/11/2025 3:40 AM EDT CBC AND DIFFERENTIAL Routine 04/10/2025 3:46 AM EDT CBC WITH AUTO DIFFERENTIAL Routine 04/10/2025 3:46 AM EDT BASIC METABOLIC PANEL Routine 04/10/2025 3:46 AM EDT HEPARIN ANTI XA Timed 04/10/2025 3:46 AM EDT HEPARIN ANTI XA Timed 04/09/2025 10:05 AM EDT CBC AND DIFFERENTIAL Routine 04/09/2025 4:18 AM EDT CBC WITH AUTO DIFFERENTIAL Routine 04/09/2025 4:18 AM EDT BASIC METABOLIC PANEL Routine 04/09/2025 4:18 AM EDT HEPARIN ANTI XA Timed 04/09/2025 4:18 AM EDT ANESTHESIA INTUBATION Routine 04/08/2025 3:46 PM EDT WOUND CULTURE Routine 04/08/2025 3:40 PM EDT Right BKA infection ANAEROBIC CULTURE Routine 04/08/2025 3:4 0 PM EDT Right BKA infection HI SEC ABDOMINAL WALL SUTURE EVISCERATION/DEHSN 04/08/2025 3:20 PM EDT Right BKA infection Special Needs * DEBRIDEMENT FOOT 04/08/2025 3:20 PM EDT Right BKA infection Special Needs * CBC AND DIFFERENTIAL Routine 04/08/2025 8:41 AM EDT SCAN SLIDE Routine 04/08/2025 8:41 AM EDT CBC WITH AUTO DIFFERENTIAL Routine 04/08/2025 8:41 AM EDT BASIC METABOLIC PANEL Routine 04/08/2025 8:41 AM EDT HEPARIN ANTI XA Timed 04/08/2025 8:41 AM EDT FL C ARM DURING SURGERY Routine 04/07/2025 9:32 PM EDT WOUND CULTURE Routine 04/07/2025 9:14 PM EDT Right BKA infection ANAEROBIC CULTURE Routine 04/07/2025 9:1 4 PM EDT Right BKA infection ANAEROBIC CULTURE Routine 04/07/2025 9:1 3 PM EDT AFB CULTURE Routine 04/07/2025 9:13 PM EDT Right BKA infection TISSUE / BONE CULTURE Routine 04/07/2025 9:13 PM EDT Right BKA infection FUNGAL CULTURE Routine 04/07/2025 9:13 PM EDT Right BKA infection WOUND CULTURE Routine 04/07/2025 9:07 PM EDT Right BKA infection ANAEROBIC CULTURE Routine 04/07/2025 9:0 7 PM EDT Right BKA infection ANESTHESIA INTUBATION Routine 04/07/2025 8:44 PM EDT PLACEMENT OF WOUND VAC 04/07/2025 8:36 PM EDT Right BKA infection LOWER EXTREMITY DEBRIDEMENT 04/07/2025 8:36 PM EDT Right BKA infection CBC AND DIFFERENTIAL Routine 04/07/2025 9:10 AM EDT HEPARIN ANTI XA Timed 04/07/2025 9:10 AM EDT CBC WITH AUTO DIFFERENTIAL Routine 04/07/2025 9:10 AM EDT BASIC METABOLIC PANEL Routine 04/07/2025 9:10 AM EDT MRI TIBIA FIBULA RIGHT W WO CONTRAST STAT 04/07/2025 9:00 AM EDT HEPARIN ANTI XA Timed 04/07/2025 1:42 AM EDT HEPARIN ANTI XA Timed 04/06/2025 7:16 PM EDT POTASSIUM Timed 04/06/2025 7:16 PM EDT HEPARIN ANTI XA Timed 04/06/2025 12:36 PM EDT BASIC METABOLIC PANEL Routine 04/06/2025 3:42 AM EDT HEPARIN ANTI XA Timed 04/06/2025 3:42 AM EDT CBC AND DIFFERENTIAL Routine 04/06/2025 3:41 AM EDT CBC WITH AUTO DIFFERENTIAL Routine 04/06/2025 3:41 AM EDT HEPARIN ANTI XA Timed 04/05/2025 8:43 PM EDT CK Routine 04/05/2025 12:15 PM EDT HEPARIN ANTI XA Timed 04/05/2025 12:15 PM EDT CBC AND DIFFERENTIAL Routine 04/05/2025 3:54 AM EDT APTT Routine 04/05/2025 3:54 AM EDT HEPARIN ANTI XA Routine 04/05/2025 3:54 AM EDT CBC WITH AUTO DIFFERENTIAL Routine 04/05/2025 3:54 AM EDT BASIC METABOLIC PANEL Routine 04/05/2025 3:54 AM EDT APTT STAT 04/05/2025 12:18 AM EDT PROTIME-INR STAT 04/05/2025 12:18 AM EDT HEPARIN ANTI XA STAT 04/05/2025 12:18 AM EDT MRI TIBIA FIBULA RIGHT W WO CONTRAST STAT 04/04/2025 5:54 PM EDT POCT CREATININE Routine 04/04/2025 2:49 PM EDT CBC AND DIFFERENTIAL STAT 04/04/2025 2:47 PM EDT CBC WITH AUTO DIFFERENTIAL STAT 04/04/2025 2:47 PM EDT C-REACTIVE PROTEIN STAT 04/04/2025 2: 47 PM EDT SEDIMENTATION RATE STAT 04/04/2025 2: 47 PM EDT COMPREHENSIVE METABOLIC PANEL STAT 04/04/2025 2:47 PM EDT from Last 3 Months Results * (ABNORMAL) CBC Auto Differential (04/11/2025 3:40 AM EDT) Only the most recent of8 resultswithin the time period is included. Pathologist [facility] WBC 7.87 3.40 - 10.80 10*3/mm3 [...] - 450 10*3/mm3 04/11/2025 4:02 AM EDT [facility] Neutrophil % 59.5 42.7 - 76.0 % 04/11/2025 4:02 AM EDT [facility] Lymphocyte % 26.3 19.6 - 45.3 % 04/11/2025 4:02 AM EDT [facility] Monocyte % 9.3 5.0 - 12.0 % 04/11/2025 4:02 AM [facility] Eosinophil % 4.1 0.3 - 6.2 % 04/11[facility]25 [facility] Basophil % 0.4 0.0 - 1.5 % 04/11/2025 4:02 AM [facility] Immature Grans % 0.4 0.0 - 0.5 % 04/11/2025 4:02 AM [facility] Neutrophils, Absolute 4.69 1.70 - 7.00 10*3/mm3 04/11/2025 4:02 AM [facility] Lymphocytes, Absolute 2.07 0.70 - 3.10 10*3/mm3 04/11/2025 4:02 AM [facility] Monocytes, Absolute 0.73 0.10 - 0.90 10*3/mm3 04/11/2025 4:02 AM [facility] Eosinophils, Absolute 0.32 0.00 - 0.40 10*3/mm3 04/11/2025 4:02 AM [facility] Basophils, Absolute 0.03 0.00 - 0.20 10*3/mm3 04/11/2025 4:02 AM [facility] Immature Grans, Absolute 0.03 0.00 - 0.05 10*3/mm3 04/11/2025 4:02 AM [facility] nRBC 0.0 0.0 - 0.2 /100 WBC 04/11/2025 4:02 AM [facility] Blood Venipuncture / Unknown 04/11/2025 3:40 AM EDT 04/11/2025 3:59 AM EDT us Sushil Dean Jr., MD LAB BLOOD ORDERABLES Fi nal Result [facility]
[address] [place] [address], * (ABNORMAL) Comprehensive Metabolic Panel (04/11/2025 3:40 AM EDT) Only the most recent of2 resultswithin the time period is included. Glucose 108(H) 65 - 99 mg/dL 04/11/2025 [...] 3:40 AM EDT 04/11/2025 3:56 AM EDT Narrative [facility] - 04/11/2025 4:19 AM EDT GFR [...] ORDERABLES Final Result [facility]
[address] [place] [address], * Heparin Anti-Xa (04/10/2025 3:46 AM EDT) Only the most recent of13 resultswithin the time period is included. Pathologist [facility] Heparin Anti-Xa (UFH) 0.35 0.30 - 0.70 IU/ml 04/10/2025 4:23 AM EDT [facility] Blood Venipuncture / Unknown 04/10/2025 3:46 AM EDT 04/10/2025 3:53 AM EDT Larisa Hamilton [facility] LAB BLOOD ORDERABLES Final R esult [facility]
[address] [place] [address], * (ABNORMAL) Basic Metabolic Panel (04/10/2025 3:46 AM EDT) Only the most recent of6 resultswithin the time period is included. Pathologist [facility] Glucose 125(H) 65 - 99 mg/dL 04/10/2025 4:20 AM EDT [facility] BUN 15.9 6.0 - 20.0 mg/dL 04/10/2025 4:20 AM EDT [facility] Creatinine 0.77 0.76 - 1.27 mg/dL 04/10/2025 4:20 AM EDT [facility] Sodium 137 136 - 145 mmol/L 04/10/2025 4:20 AM EDT [facility] Potassium 3.9 3.5 - 5.2 mmol/L 04/10/2025 4:20 AM EDT [facility] Chloride 102 98 - 107 mmol/L 04/10/2025 4:20 AM EDT [facility] CO2 26.9 22.0 - 29.0 mmol/L 04/10/2025 4:20 AM EDT [facility] Calcium 7.9(L) 8.6 - 10.5 mg/dL 04/10/2025 4:20 AM EDT [facility] BUN/Creatinine Ratio 20.6 7.0 - 25.0 04/10/2025 4:20 AM EDT [facility] Anion Gap 8.1 5.0 - 15.0 mmol/L 04/10/2025 4:20 AM EDT [facility] eGFR 113.2 >60.0 mL/min/1.7 3 04/10/2025 4:20 AM EDT [facility] Blood Venipuncture / Unknown 04/10/2025 3:46 AM EDT 04/10/2025 3:52 AM EDT Narrative [facility] - 04/10/2025 4:20 AM [...] Final Resul t [facility]
[address] [place] [address], * Wound Culture - Swab, Leg, Right (04/08/2025 3:40 PM EDT) Only the most recent of3 resultswithin the time period is included. Wound Culture No growth at 3 days ALIZA 04/11/2025 10:40 AM EDT [facility] Gram Stain Few (2+) WBCs seen 04/11/2025 10:40 AM EDT [facility] Gram Stain No organisms seen 04/11/2025 10:40 AM EDT [facility] Swab Structure of right lower limb / Unknown 04/08/2025 3:40 PM EDT 04/08/2025 8:05 PM EDT Sushil Dean Jr., MD MICROBIOLOGY - GENERAL ORDERABLES Final Result Performing Organization Address [facility]/ZIP Co de Phone Number [facility]
[address] [place] [address], [facility]
[address] [place] [address], [place] [phone] * Anaerobic Culture - Swab, Leg, Right (04/08/2025 3:40 PM EDT) Only the most recent of4 resultswithin the time period is included. Pathologist [facility] Anaerobic Culture No anaerobes isolated at 5 days ALIZA 04/13/2025 7:24 AM EDT [facility] Swab Structure of right lower limb / Unknown 04/08/2025 3:40 PM EDT 04/08/2025 8:05 PM EDT Sushil Dean Jr., MD MICROBIOLOGY - GENERAL ORDERABLES Final Result Performing Organization Address [facility] [[email or web address]] Co de Phone Number [facility]
[address] [place] [address], * Scan Slide (04/08/2025 8:41 AM EDT) [...] Address City/[facility]/ZIP Co de Phone Number [facility]
[address] [place] [address], [place] [phone] * FL C Arm During Surgery (04/07/2025 9:32 PM EDT) Narrative SYSTEMGENERATED, DOCUMENTATION - 04/07/2025 9:38 PM EDT This procedure was auto-finalized with no dictation required. us Sushil Dean Jr., MD IMG FLUOROSCOPY ORDERAB LES Final Result * Tissue / Bone Culture - Tissue, Leg, Right (04/07/2025 9:13 PM EDT) Tissue Culture No growth at 3 days ALIZA 04/11/2025 10:36 AM EDT [facility] Gram Stain Rare (1+) WBCs seen 04/11/2025 10:36 AM EDT [facility] Gram Stain No organisms seen 04/11/2025 10:36 AM EDT [facility] Tissue Structure of right lower limb / Unknown 04/07/2025 9:13 PM EDT 04/08/2025 4:54 AM EDT us Sushil Dean Jr., MD MICROBIOLOGY - GENERAL ORDERABLES Final Result [facility]
[address] [place] [address], [facility]
[address] [place] [address], * BH AN ETT AIRWAY (04/07/2025 8:44 [...] Alonso DO ANESTHESIA ORDERABLES Final Re sult * MRI Tibia Fibula Right With & Without Contrast (04/07/2025 9:00 AM EDT) Only the most recent of2 resultswithin the time period is included. Anatomical Region Laterality Modality Lower Extremities, Lower [...] [place] 04/07/2025 9:58 AM EDT Workstation ID: [id number] Narrative 04/07/2025 9:58 AM EDT MRI TIBIA [...] osteomyelitis at this time. Electronically Signed: Hugh Migelcristy 04/07/2025 9:58 AM EDT Workstation ID: [id number] Sushil Dean Jr., MD IMG MRI ORDERABLES Mary Beth l Result * Potassium (04/06/2025 7:16 PM EDT) Potassium 4.0 3.5 - 5.2 mmol/L 04/06/2025 7:53 PM EDT [facility] Blood Venipuncture / Unknown 04/06/2025 7:16 PM EDT 04/06/2025 7:35 PM EDT Jason Álvarez DO LAB BLOOD ORDERABLES Final Resul t Performing Organization Address City/[facility]/ZIP Co de Phone Number [facility]
[address] [place] [address], * CK (04/05/2025 12:15 PM EDT) Creatine Kinase 140 20 - 200 U/L 04/05/2025 1:31 PM EDT [facility] Blood Venipuncture / Unknown 04/05/2025 12:15 PM EDT 04/05/2025 1:03 PM EDT Carlton Mead MD LAB BLOOD ORDERABLES Final R esult Performing Organization Address City/[facility]/ZIP Co de Phone Number [facility]
[address] [place] [address], * (ABNORMAL) aPTT (04/05/2025 3:54 AM EDT) Only the most recent of2 resultswithin the time period is included. PTT 35.3(L) 60.0 - 90.0 seconds 04/05/2025 4:31 AM EDT [facility] Blood Venipuncture / Unknown 04/05/2025 3:54 AM EDT 04/05/2025 4:15 AM EDT Narrative [facility] - 04/05/2025 4:31 AM EDT PTT = The equivalent PTT values for the therapeutic range of heparin levels at 0.3 to 0.5 U/ml are 60 to 70 seconds. [employer] LAB BLOOD ORDERABLES Final R esult Performing Organization Address [facility]/ZIP Co de Phone Number [facility]
[address] [place] [address], * (ABNORMAL) Protime-INR (04/05/2025 12:18 AM EDT) Protime 15.9(H) 12.2 - 15.3 Seconds 04/05/2025 12:53 AM EDT [facility] INR 1.19(H) 0.89 - 1.12 04/05/2025 12:53 AM EDT [facility] Blood Venipuncture / Unknown 04/05/2025 12:18 AM EDT 04/05/2025 12:37 AM EDT [employer] LAB BLOOD ORDERABLES Final R esult [facility]
[address] [place] [address], * POC Creatinine (04/04/2025 2:49 PM EDT) Creatinine 1.10 0.60 - 1.30 mg/dL 04/07/2025 7:14 PM EDT [facility] Comment:Serial Number: [id number] [id number] Venous Blood 04/04/2025 2:49 PM EDT 04/07/2025 7:14 PM EDT Jason Álvarez DO POINT OF CARE TEST ORDERABLES Fi nal Result Performing Organization Address [facility] de Phone Number [facility]
[address] [place] [address], * (ABNORMAL) Sedimentation Rate (04/04/2025 2:47 PM EDT) Sed Rate 51(H) 0 - 15 mm/hr 04/04/2025 3:06 PM EDT [facility] Blood Venipuncture / Unknown 04/04/2025 2:47 PM EDT 04/04/2025 2:52 PM EDT Mario Crowley DO LAB BLOOD ORDERABLES Fin al Result Performing Organization Address [facility] de Phone Number [facility]
[address] [place] [address], [place] [phone] * (ABNORMAL) C-reactive Protein (04/04/2025 2:47 PM EDT) C-Reactive Protein 8.57(H) 0.00 - 0.50 mg/dL 04/04/2025 3:26 PM EDT [facility] Blood Venipuncture / Unknown 04/04/2025 2:47 PM EDT 04/04/2025 2:52 PM EDT Mario Crowley DO LAB BLOOD ORDERABLES Fin al Result Performing Organization Address [facility] [[email or web address]] Co de Phone Number [facility]
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
--- OUTSIDE RECORDS SUMMARY | 2025-04-13 10:41 | XMS_ITS | Encounter Summary ---
Author Organization Healthcare Address [address] [place] [address] Care Team Providers Care Tow Driver Name Role Phone Unavailable Primary Care Provider Unavailabl e Encounter Details Date Type Department Care Team (Late st Contact Info) Description 10/19/2022 Lab Requisition [facility] [address] [place] [address] Sushil Dean MD [address] [place] [address] Encounter for general adult medical examination without [...] by MALDI tof mass spectrometry using the [employer] database and is for research use only. The organism value for this result has been updated. These results have been appended to the previously preliminary verified report. Bone Specimen from bone / Unknown 10/19/2022 5:17 PM EDT 10/19/2022 9:49 PM EDT Sushil Dean MD LAB MICROBIOLOGY - GENERAL O RDERABLES Final Result Performing Organization Address [facility] de Phone Number [facility] [address] [place] [phone] * Bone Culture and Gram Stain (10/19/2022 5:17 PM EDT) Culture No growth at day 4 2022 8:14 AM EDT [facility] Gram Stain Result Few Polymorphonuclear leukocytes 10/23/2022 8:14 AM EDT [facility] Gram Stain Result No organisms seen 10/23/2022 8:14 AM EDT [facility] Bone Specimen from bone / Unknown 10/19/2022 5:17 PM EDT 10/19/2022 9:49 PM EDT Sushil Dean MD LAB MICROBIOLOGY - GENERAL O RDERAADDI Final Result Performing Organization Address [facility] Phone Number [facility] [address] [place] [address] documented in this encounter Visit Diagnoses Diagnosis Encounter for general adult medical examination without abnormal findings documented in this encounter
--- OUTSIDE RECORDS SUMMARY | 2025-04-13 10:41 | XMS_ITS | Encounter Summary ---
Author Organization Healthcare Address [address] [place] [address] Care Team Providers Care Quarantine Inspector Name Role Phone Unavailable Primary Care Provider Unavailabl e Encounter Details Date Type Department Care Team (Late st Contact Info) Description 08/12/2022 Lab Requisition [facility] [address] [place] [address] Sushil Dean MD [address] [place] [address] Encounter for general adult medical examination without [...] has been identified using the FDA Approved [employer] System The organism value for this [...] O ERIC Final Result Performing Organization Address City/[facility] de Phone Number [facility]ALTHCARE LAB [address] [place] [address] * Bone Culture and Gram Stain (08/12/2022 [...] O RDERABLES Final Result Performing Organization Address City/[facility] de Phone Number [facility] [address] [place] [address] documented in this encounter Visit Diagnoses Diagnosis Encounter for general adult medical examination without abnormal findings documented in this encounter
--- OUTSIDE RECORDS SUMMARY | 2025-04-13 10:41 | XMS_ITS | Encounter Summary ---
Author Organization Healthcare Address [address] [place] [address] Care Team Providers Care Extra Gang Supervisor Name Role Phone Unavailable Primary Care Provider Unavailabl e Encounter Details Date Type Department Care Team (Late st Contact Info) Description 07/20/2022 Lab Requisition [facility] [address] [place] [address] Sushil Dean MD [address] [place] [address] Encounter for general adult medical examination without [...] at day 4 07/27/2022 11:32 AM EST [facility] Bone Specimen from bone / Unknown 07/20/2022 1:36 PM EST 07/20/2022 5:52 PM EST us Sushil Dean MD LAB MICROBIOLOGY - GENERAL O RDERABLES Final Result Performing Organization Address City/[facility] Co de Phone Number [facility]ALTH[facility] [address] [place] [address] * Bone Culture and Gram Stain (07/20/2022 1:36 PM EST) Culture No growth at day 4 2022 9:16 AM EST [facility] Gram Stain Result Rare Polymorphonuclear leukocytes 07/24/2022 9:16 AM EST [facility] Gram Stain Result No organisms seen 07/24/2022 9:16 AM EST [facility] Bone Specimen from bone / Unknown 07/20/2022 1:36 PM EST 07/20/2022 5:52 PM EST us Sushil Dean MD LAB MICROBIOLOGY - GENERAL O RDERABLES Final Result Performing Organization Address City/[facility] Co de Phone Number [facility] [address] [place] [address] documented in this encounter Visit Diagnoses Diagnosis Encounter for general adult medical examination without abnormal findings documented in this encounter
--- OUTSIDE RECORDS SUMMARY | 2025-04-13 10:41 | XMS_ITS | Clinical Summary ---
Author Organization Healthcare Address [address] [place] [address] Care Team Providers Care Scoop Filler Name Role Phone Unavailable Primary Care Provider [...]
== END 2025-04-13 11:25 | disposition home or self-care (01) ==
PROVIDERS: PCP Nurse Practitioner Family; Visit Provider Internal Medicine Infectious Disease
DX: L03.115 Cellulitis of right lower limb (principal); L02.415 Cutaneous abscess of right lower limb; Z89.511 Acquired absence of right leg below knee; L30.9 Dermatitis, unspecified; D68.2 Hereditary deficiency of other clotting factors; I10 Essential (primary) hypertension; E78.5 Hyperlipidemia, unspecified; F39 Unspecified mood [affective] disorder
CPT/HCPCS: 96365; J0878

== ENCOUNTER 2025-04-14 09:49 | Outpatient (CLI) | payer MEDICARE, SELFPAY ==
--- OUTSIDE RECORDS SUMMARY | 2023-10-25 12:15 | XMS_ITS ---
[facility] Address [address] [place] [address] YVON Sykes [id number] Care Team Providers Care Urgent Care Physician Assistant Name Role Phone Zeeshan Salazar Primary Care Provider Macario Burkett [phone] Allergies No Known Allergies REASON FOR VISIT check up BP Encounters Encounter Location Date Provider Diagnosis [facility] [address] [place] [address] YVON Sykes [phone] 10/25/2023 Macario Burkett Plan Of Treatment No Information Progress Notes * MITCHELLWonDOB: [birth year] (44 yo M)Acc No.[id number]:10/25/2023 Progress Notes Patient: Won SPANN Provider: Colleen Burkett M.D. :1980 A ge:43 Y S ex:Male Date:10/25/2023 Address:[address] [place] [address] Onel THACKER [id number] Pcp:Zeeshan Salazar Subjective: * Chief Complaints: * 1 . check up BP. * ROS: D ERMATOLOGY: no R angelina. n o H gavin. G ASTROENTEROLOGY: no N ausea. n o V omiting. U ROLOGY: no D ifficulty urinating. n o B lood in urine. * Medical History: P soriasis, Allergic Rhinitis, Arthritis, knees, MRSA rt foot 06/2022, osteomyelitis, MRSA, s/p multiple surgeries and RLE amputation, Pulmonary embolism x 2. * Surgical History: B ack 2003, LT Ankle , RT foot 07/08/2022, RT foot 07/12/2022. * Hospitalization/Major Diagno stic Procedure: D enies Past Hospitalization. * Family History: F ather: alive. M other: alive, hypertension. M aternal Grand Mother: HBP, [place]. Brother with HBP. * Social History: C URRENT TOBACCO USE S moking Status: Patient does NOT smoke. C affeine: no. Alcohol: No. * Allergies: N .K.D.A. Objective: * Vitals: Assessment: Plan: * Treatment: * Images: Billing Information: * Visit Code: * Procedure Codes: * Electronic signature of Micaela Burkett MD on 04/14/2025 at 09:54 AM EDT Sign off status: Pending * Provider: Colleen Burkett M.D. Date: 0 10/25/2023 Generated for Nany jorgensen/Elaine/Lisbethitting on: 1 09:54 AM EDT
--- OUTSIDE RECORDS SUMMARY | 2023-12-12 05:00 | XMS_ITS ---
Author Organization Ayaka Address 1210 [facility] 36 [facility] 2C [place] [phone] Care Team Providers Care Drill Press Operator Numerical Control Name Role Phone Zeeshan Salazar Primary Care Provider Macario Burkett [phone] REASON FOR VISIT 6 Month Check Up Encounters Encounter Location Date Provider Diagnosis [place] 1210 [facility] [address] [place] [phone] 12/12/2023 Macario Burkett Plan Of Treatment No Information Progress Notes * Won MEDRANO ZeeshanDOB: [birth year] (44 yo M)Acc No.[id number]:12/12/2023 Progress Notes Patient: Won SPANN Provider: Colleen Burkett M.D. :1980 A ge:43 Y S ex:Male Date:12/12/2023 Address:[address] [place] [address] [id number] Pcp:Zeeshan Salazar Subjective: * Chief Complaints: * 1 . 6 Month Check Up. * Medical History: Objective: * Vitals: Assessment: Plan: * Treatment: * Images: Billing Information: * Visit Code: * Procedure Codes: * Electronic signature of Micaela Burkett MD on 04/14/2025 at 09:54 AM EDT Sign off status: Pending * Provider: Colleen Burkett M.D. Date: 12/12/2023 Generated for Nnay jorgensen/Elaine/Pro on: 1 09:54 AM EDT
--- OUTSIDE RECORDS SUMMARY | 2025-04-04 16:10 | XMS_ITS | Encounter Summary ---
Author Organization [facility] Address [address] [place] [address] Care Team Providers Care Stripper And Printer Name Role Phone Provider, No Known Primary Care Provider Unavail able Reason for Visit * Reason Comments Leg Swelling * Auth/Cert Specialty Diagnoses / Procedures Referred By Contlevy t Referred To Contact Diagnoses Right BKA infection Referral ID Status Reason Start Date Expiration Date Visits Re quested Visits Authorized [id number] 1 1 Encounter Details Date Type Department Care Team (Late st Contact Info) Description 04/04/2025 4:10 PM EDT - 04/11/2025 1:58 PM EDT Hospital Encounter [address] [place] [address] Mario Crowley, [address] [place] [address] Leonora Shepherd MD [address] [address] Jason Álvarez DO [address] [address] Jadyn Richardson DO [address] [address] Cellulitis of right lower extremity (Primary Dx); [...] the past 12 months has th e [employer], gas, oil, or water company threatened to [...] or training? Not on file Preferred Language Montserratian 04/07/2025 Sex and Gender Information Value Date [...] PM EDT Cherri Kramer rd, RN * [place] Suicide Severity Rating Scale (Screener/Recent Self-Report) Question [...] from the original note were not included. [facility] Medicine Services DISCHARGE SUMMARY Patient Name: [...] Date/Time Wound Culture - Swab, Leg, Right [[id number]] (Abnormal) (Susceptibility) Collected: 04/07/252106 Lab Status: Final [...] Units Date/Time FL C Arm During Surgery [[id number]] Resulted: 04/07/252137 Updated: 04/07/252137 Narrative: This procedure was auto-finalized with no dictation required. MRI Tibia Fibula Right With & Without Contrast [[id number]] Collected: 04/07/25 0938 Updated: 04/07/25 1001 Narrative: [...] Buenrostro 04/07/2025 9:58 AM EDT Workstation ID: [id number] MRI Tibia Fibula Right With & Without Contrast [[id number]] Collected: 04/04/252256 Updated: 04/04/252302 Narrative: MRI TIBIA [...] MD 04/04/2025 11:00 PM EDT Workstation ID: [id number] Pending Labs Order Current Status Fungus Culture [...] capsule, Nightly Stop These Medications [facility] capsule doxycycline 100 MG tablet [...] Male) Date of 1980 Social Security Number [id number] [place] [id number] Hoahaoism Unknown Marital Status Unknown Admission Date 04/04/2025 Admission Type Emergency Admitting Provider Jadyn Richardson DO Attending Provider Jadyn Richardson DO Department, Room/Bed [address], S565/1 Discharge Date Discharge Disposition Discharge [...] Group [place] [id number] Payor Plan Address Payor Plan Phone Number Payor Plan Fax Number Effective Dates [employer] [address] [address] 08/10/2023 - None Entered [place] [address] Subscriber Name Subscriber Date Member ID WON DENNIS 1980 [id number] Emergency Contacts Rn Rehabilitation (Rel.) Home Phone Work Phone Mobile Phone Avril Dennis (Spouse) -- -- [phone] LewRobert (Relative) -- -- [phone] [place] [facility] [address] Patient: ROOM: [facility] Won Dennis [address] [facility] [address] : 1980 SSN: [id number] Sex: M PCP: Provider, No Known Emergency Contact Information Name Relation Home Work Mobile Avril Dennis Spouse [phone] Other Contacts Name Relation Home Work Mobile Robert Hackett Relative [phone] INSURANCE PAYOR [employer]AN [employer] # SUBSCRIBER ID Primary: Secondary: MEDICARE [place] [id number] Admitting Diagnosis: 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] Order Date: Apr 09, 2025 Case Management Decal Cutter Consult (Order ID: [id number]) Diagnosis: Priority: Routine Expected Date: Expiration Date: Interval: Once Count: Comments: Outpatient orders: 1. Outpatient intravenous antibiotic therapy: Daptomycin 800 mg IV daily to be supplied by [facility] 2. Home health to perform [...] INFECTIOUS DISEASE Progress Note Won Dennis 1980 [id number] Date of Consult: 04/10/2025 Admission Date: 04/04/2025 [...] which prompted him to seek treatment at [facility]. He is known to Dr. Dean. [...] Jr., MD, 20 mg at 04/09/25906 heparin 50729 units/250 mL (100 units/mL) in 0.45 % [...] Units Date/Time FL C Arm During Surgery [[id number]] Resulted: 04/07/252137 Updated: 04/07/252137 Narrative: This procedure was auto-finalized with no dictation required. MRI Tibia Fibula Right With & Without Contrast [[id number]] Collected: 04/07/25 0938 Updated: 04/07/25 1001 Narrative: [...] Chitra 04/07/2025 9:58 AM EDT Workstation ID: [id number] Impression: Recurrent Right BKA stump abscess/cellulitis- this [...] discussed his disposition with the pharmacist at [facility] today. I will sign off Outpatient orders: 1. Outpatient intravenous antibiotic therapy: Daptomycin 800 mg IV daily to be supplied by [facility] 2. Home health to perform [...] Time: 04/10/251323 Signed Expand All Collapse All [facility] Medicine Services PROGRESS NOTE Patient Name: [...] Date/Time Wound Culture - Swab, Leg, Right [[id number]] (Abnormal) (Susceptibility) Collected: 04/07/252106 Lab Status: Final [...] Row Name 04/06/25 1143 Sit-Stand Transfer Sit-Stand Hubbard (Transfers) modified independence -LM Comment, (Sit-Stand Transfer) Pt stood from recliner. Not holding onto walker, pt able to pull his pants up while balancing on his one leg. -LM Row Name 04/06/25 1143 Gait/Stairs (Locomotion) Hubbard Level (Gait) modified independence -LM Distance in [...] Nurse Physical Therapy Education Title: PT OT BRUSHER HAND Therapies (Done) Topic: Physical Therapy (Done) Point: [...] Description Service Date Service Provider Modifiers Qty [id number] PT EVAL LOW COMPLEXITY 3 04/06/2025 Susan [...] 1 capsule by mouth Every Night. 03/26/2025 documented as of this encounter Progress Notes * Rosario Hill APRN - 04/10/2025 1:24 PM EDT Images from the original note were not included. [facility] Medicine Services PROGRESS NOTE Patient Name: [...] Date/Time Wound Culture - Swab, Leg, Right [[id number]] (Abnormal) (Susceptibility) Collected: 04/07/252106 Lab Status: Final [...] INFECTIOUS DISEASE Progress Note Won Dennis 1980 [id number] Date of Consult: 04/10/2025 Admission Date: 04/04/2025 [...] which prompted him to seek treatment [facility]. He is known to Dr. Dean. [...] MD; Location: [facility];Service: Orthopedics; Laterality: Right; History reviewed. No pertinent [...] Jr., MD, 20 mg at 04/09/25906 heparin 02302 units/250 mL (100 units/mL) in 0.45 % [...] Units Date/Time FL C Arm During Surgery [[id number]] Resulted: 04/07/252137 Updated: 04/07/252137 Narrative: This procedure was auto-finalized with no dictation required. MRI Tibia Fibula Right With & Without Contrast [[id number]] Collected: 04/07/25937 Updated: 04/07/25 100 Narrative: MRI [...] Chitra 04/07/2025 9:58 AM EDT Workstation ID: [id number] Impression: Recurrent Right BKA stump abscess/cellulitis- this [...] discussed his disposition with the pharmacist at [facility] today. I will sign off Outpatient orders: 1. Outpatient intravenous antibiotic therapy: Daptomycin 800 mg IV daily to be supplied by [facility] 2. Home health to perform [...] MD 04/10/2025 07:38 EDT * Larisa Hamilton, [facility] - 04/10/2025 7:17 AM EDT [...] from the original note were not included. [facility] Medicine Services PROGRESS NOTE Patient Name: [...] Date/Time Wound Culture - Swab, Leg, Right [[id number]] (Abnormal) Collected: 04/07/252106 Lab Status: Preliminary result [...] Jason Álvarez DO 04/09/25 * Larisa Hamilton [facility] - 04/09/2025 11:36 AM EDT [...] were not included. INFECTIOUS DISEASE Progress Note oWn Dennis 1980 [id number] Date of Consult: 04/09/2025 Admission Date: 04/04/2025 [...] which prompted him to seek treatment [facility]. He is known to Dr. Dean. [...] MD; Location: [facility]; Service: Orthopedics; Laterality: Right; PLACEMENT OF WOUND VAC Right 04/07/2025 Procedure: WOUND VACUUM ASSISTED CLOSURE; Surgeon: Sushil Dean Jr., MD; Location: [facility]; Service: Orthopedics; Laterality: Right; History reviewed. No [...] MD, 20 mg at 04/08/25 0800 heparin 63623 units/250 mL (100 units/mL) in 0.45 % [...] Units Date/Time FL C Arm During Surgery [[id number]] Resulted: 04/07/252137 Updated: 04/07/252137 Narrative: This procedure was auto-finalized with no dictation required. MRI Tibia Fibula Right With & Without Contrast [[id number]] Collected: 04/07/25 0938 Updated: 04/07/25 1001 Narrative: [...] Buenrostro 04/07/2025 9:58 AM EDT Workstation ID: [id number] Impression: Recurrent Right BKA stump abscess/cellulitis- this [...] mg IV daily to be supplied by [facility] 2. Home health to perform [...] from the original note were not included. [facility] Medicine Services PROGRESS NOTE Patient Name: [...] Buenrostro 04/07/2025 9:58 AM EDT Workstation ID: [id number] I have personally reviewed the therapy plans: [...] Jason Álvarez DO 04/08/25 * Larisa Hamilton [facility] - 04/08/2025 11:48 AM EDT [...] 0500 0.30 11 -- -- 11 1200 [facility] 04/05 1215 0.17 11 1999 +3 [...] INFECTIOUS DISEASE Progress Note Won Dennis 1980 [id number] Date of Consult: 04/08/2025 Admission Date: 04/04/2025 [...] which prompted him to seek treatment [facility]. He is known to Dr. Dean. [...] Surgeon: Sushil Dean Jr., MD; Location: [facility]; Service: Orthopedics; Laterality: Right; PLACEMENT OF WOUND VAC Right 04/07/2025 Procedure: WOUND VACUUM ASSISTED CLOSURE; Surgeon: Sushil Dean Jr., MD; Location: [facility]; Service: Orthopedics; Laterality: Right; History [...] Jr., MD, 20 mg at 04/07/25950 heparin 82892 units/250 mL (100 units/mL) in 0.45 % [...] 0.4 mg, 0.4 mg, Oral, Nightly, Sushil eDan Jr., MD, 0.4 mg at 04/06/252100 valsartan [...] Units Date/Time FL C Arm During Surgery [[id number]] Resulted: 04/07/252137 Updated: 04/07/252137 Narrative: This procedure was auto-finalized with no dictation required. MRI Tibia Fibula Right With & Without Contrast [[id number]] Collected: 04/07/25937 Updated: 04/07/25 100 Narrative: MRI [...] Lainezcristy 04/07/2025 9:58 AM EDT Workstation ID: [id number] Impression: 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 (Treated by ID in [place] Dr. Harris). Dr. Torres treated him [...] from the original note were not included. [facility] Medicine Services PROGRESS NOTE Patient Name: [...] Buenrostro 04/07/2025 9:58 AM EDT Workstation ID: [id number] I have personally reviewed the therapy plans: [...] Jason Álvarez DO 04/07/25 * Larisa Hamilton [facility] - 04/07/2025 11:56 AM EDT [...] INFECTIOUS DISEASE Progress Note Won Dennis 1980 [id number] Date of Consult: 04/07/2025 Admission Date: 04/04/2025 [...] which prompted him to seek [facility]. He is known to Dr. Dean. [...] MD, 20 mg at 04/06/25 09 heparin 61798 units/250 mL (100 units/mL) in 0.45 % NaCl infusion, 18 Units/kg/hr, Intravenous, Titrated, Cherri Beatty, [facility], Last Rate: 24.1 mL/hr at [...] With & Without Contrast - In process [[id number]] Resulted: 04/07/25828 Updated: 04/07/25828 This result has not been signed. Information might be incomplete. MRI Tibia Fibula Right With & Without Contrast [[id number]] Collected: 04/04/252256 Updated: 04/04/252302 Narrative: MRI TIBIA [...] represent a small area of phlegmonous change ([id number] image 10) measuring approximately 1.6 cm which [...] MD 04/04/2025 11:00 PM EDT Workstation ID: [id number] Impression: 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 (Treated by ID in [place] Dr. Harris). Dr. Torres treated him [...] mg Daily 04/05/2025 -- Route: Oral heparin 16756 units/250 mL (100 units/mL) in 0.45 % [...] Jr, MD 04/07/25 06:07 EDT * RogerioCherri, [facility] - 04/06/2025 1:47 PM EDT [...] from the original note were not included. [facility] Medicine Services PROGRESS NOTE Patient Name: [...] MD 04/04/2025 11:00 PM EDT Workstation ID: [id number] I have personally reviewed the therapy plans: [...] AM-PAC 6 Clicks Score (PT): 23 (04/06/25 2397) CODE STATUS: Code Status and Medical Interventions: [...] mg Daily 04/05/2025 -- Route: Oral heparin 10114 units/250 mL (100 units/mL) in 0.45 % [...] INFECTIOUS DISEASE follow up. Won Dennis 1980 [id number] Date of Consult: 04/06/2025 Admission Date: 04/04/2025 [...] which prompted him to [facility]. He is known to Dr. Dean. [...] Application, 1 Application, Topical, Q12H, Ayah Valentin, HOUSE MOVING SUPERVISOR, 1 Application at 04/06/25 0859 DAPTOmycin (CUBICIN) [...] MD, 20 mg at 04/06/25 0900 heparin 52243 units/250 mL (100 units/mL) in 0.45 % NaCl infusion, 18 Units/kg/hr, Intravenous, Titrated, Cherri Beatty, [facility], Last Rate: 24.1 mL/hr at [...] Q24H, Leonora Shepherd MD, 40 mg at 04/06/2559 Antibiotics: Anti-Infectives [...] Tibia Fibula Right With & Without Contrast [[id number]] Collected: 04/04/252256 Updated: 04/04/252302 Narrative: MRI TIBIA [...] MD 04/04/2025 11:00 PM EDT Workstation ID: [id number] Impression: 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 (Treated by ID in [place] Dr. Harris). Dr. Torres treated him [...] MD 04/06/2025 16:00 EDT * Cherri Beatty, [facility] - 04/05/2025 3:01 PM EDT [...] from the original note were not included. [facility] Medicine Services PROGRESS NOTE Patient Name: [...] MD 04/04/2025 11:00 PM EDT Workstation ID: [id number] I have personally reviewed the therapy plans: [...] from the original note were not included. [facility] Medicine Services HISTORY AND PHYSICAL Patient [...] MD 04/04/2025 11:00 PM EDT Workstation ID: [id number] Assessment & Plan Assessment & Plan Won [...] ORTHOPEDIC SURGERY [facility], [facility] [address] [place] [address] Orthopedic Consult Patient: Won Dennis Date of Admission: 04/04/2025 4:10 PM Date of : 1980 Attending Physician: Jason Álvarez DO Consulting Physician: Sushil Dean Jr, MD Chief Complaint: 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 male admitted to [facility] with 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]. [...] was evaluated in the emergency department in [place], was discharged with instructions for follow-up. He [...] mouth Daily. 04/03/2025 Morning Lactobacillus-Inulin ([facility]) capsule Take 200 mg by mouth [...] MD 04/04/2025 11:00 PM EDT Workstation ID: [id number] Assessment: Right BKA infection 44-year-old male with [...] DISEASE CONSULT/INITIAL HOSPITAL VISIT Won Dennis 1980 [id number] Date of Consult: 04/05/2025 Admission Date: 04/04/2025 [...] which prompted him to [facility]. He is known to Dr. Dean. [...] Leonora Shepherd MD, 40 mg at 04/04/25 2689 sennosides-docusate (PERICOLACE) 8.6-50 MG per tablet 2 [...] MD, 20 mg at 04/05/25 0916 heparin 35220 units/250 mL (100 units/mL) in 0.45 % [...] Leonora Shepherd MD, 10 mg at 04/04/25 2130 Pharmacy to Dose Heparin, , Not Applicable, [...] infusion 40 mL, 40 mL, Intravenous, PRN, Leoonra Shepherd MD tamsulosin (FLOMAX) 24 hr capsule [...] Tibia Fibula Right With & Without Contrast [[id number]] Collected: 04/04/252256 Updated: 04/04/252302 Narrative: MRI TIBIA [...] represent a small area of phlegmonous change ([id number] image 10) measuring approximately 1.6 cm which [...] MD 04/04/2025 11:00 PM EDT Workstation ID: [id number] Impression: 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 (Treated by ID in [place] Dr. Harris). Dr. Torres treated him [...] Jr., MD - 04/08/2025 3:51 PM EDT [facility] OPERATIVE REPORT PATIENT NAME: Won Dennis DATE OF : 1980 PREOP DIAGNOSIS: Right Right below-knee amputation infection POSTOP DIAGNOSIS: Same. PROCEDURE: Right Right 43411: Secondary closure below-knee amputation SURGEON: Sushil Dean MD OPERATIVE TEAM: Clay Molder: Susi Grullon RN Scrub Person: Mary Paredes Scrub Person Extra: Hortencia Toribio Other: Katt Gotti RN; Charis Neville RN ANESTHETIST: Anesthesiologist: Ulises Hoffman MD HOP PICKER: Stan Casillas CRNA Student Nurse Bush Regenerator: Karol Albert SRNA ANESTHESIA: Choice ESTIMATED BLOOD [...] CULTURE (Canceled) Sushil Dean Jr., MD 04/08/25 5789 Description: RIGHT LEG DEEP WOUND FOR CULTURE [...] PM EDT [facility], [place] [address] OPERATIVE REPORT PATIENT NAME: Won Dennis DATE OF : 1980 PREOP DIAGNOSIS: Right Right below knee amputation stump infection POSTOP DIAGNOSIS: Same. PROCEDURE: Right Right 30904: Incision and drainage of surgical site infection 56234: Debridement of skin, subcutaneous tissue, muscle 88072: Wound vacuum-assisted closure SURGEON: Sushil Dean MD OPERATIVE TEAM: Clay Molder: Anum Sanchez RN Scrub Person: Bo Toribio Devion EMAIL MARKETING COORDINATOR: Anesthesiologist: Luci Alonso DO ANESTHESIA: General ESTIMATED [...] ago swellling of the area. seen at [facility] for [facility] and US, here [...] this chart in the absence of a bb shot packer. No orders to display RADIOLOGY: [x] Radiologist's [...] 04/11/2025 1:30 PM EDT Continued Stay Note [facility] Patient Name: Won Dennis Today's Date: 04/11/2025 Admit Date: 04/04/2025 Plan: Home with outpatient infusion. Discharge Plan Row Name 04/11/25 1155 Plan Plan Home with outpatient infusion. Final Discharge Disposition Code 01 - home or self-care Final Note Patient discharging today. He is discharging home with outpatient infusion at [facility]. He has an appointment with [facility] at 8:00 am tomorrow. They will do PICC line dressing changes. DEBRA has spoke with Dena at [facility] today multiple times to get setup due [...] to get IV ABX at home with [facility]; however, Medicaid lapsed on 04/08. CM was unaware until this morning that Medicaid has lapsed. Patient explained that he has Medicare A and B. CM spoke with KELLEE and given themhis Medicare number [id number], she sent it to Admission. DEBRA spoke with Kerri, with [facility], and explained that he had Medicare A and B. However, it will not cover home infusion. It will be $64.00 a day out of packet. Patients can go to the Infusion center at [facility], and it will cover the cost as an outpatient. He will need to go there every day for infusion. They will be able to do the patients' PICC line dressing changes and lab work. DEBRA called Dena [facility] Outpatient infusion center they can accept patient and start him. He is known for their facility. The Facility will need to run it through his insurance first. DEBRA faxed the orders over to [facility] at [phone]. CM will follow up with them tomorrow at [facility] to make sure they received [...] 04/09/2025 2:51 PM EDT Continued Stay Note [facility] Patient Name: Won Dennis Today's Date: 04/09/2025 Admit Date: 04/04/2025 Plan: Home Discharge Plan Row Name 04/09/25 1311 Plan Plan Home Patient/Family in Agreement with Plan yes Plan Comments CM spoke with patient at bedside today. Wheelchair from [employer] is at bedside. Patient getting PICC line [...] note were not included. Discharge Planning Assessment [facility] Patient Name: Won Dennis Today's Date: 04/07/2025 [...] family Patient/Family Anticipated Services at Transition case manager specialistinside sales manager Anticipated family or friend will provide Discharge Needs Assessment Equipment Currently Used at Home glucometer;shower chair;pulse ox;bp cuff;prosthesis;crutches Equipment Needed After Discharge none Discharge Plan Row Name 04/07/25 1144 Plan Plan Home Patient/Family in Agreement with Plan yes Plan Comments CM spoke with patient at bedside today. Patient lives with and his 5 kids in [facility][1]. 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 He has walker, cane, shower chair, and crutches. He requested a wheelchair for home. CM will order wheelchair through [employer]. He is not current with home health services. PCP is Dr. Jordan. Insurance is [employer] [place]. Patient discharge plan is home with priavte transport. CM will follow for any discharge needs. Final Discharge Disposition Code 01 - home or self-care Continued Care and Services - Admitted Since 04/04/2025 No active coordination exists. Demographic Summary Row Name 04/07/25 1143 General Information Arrived From hospital Preferred Language Montserratian Functional Status Row Name 04/07/25 1143 Functional [...] 3:4 0 PM EDT Right BKA infection AR SEC ABDOMINAL WALL SUTURE EVISCERATION/DEHSN 04/08/2025 3:20 [...] Auto Differential (04/11/2025 3:40 AM EDT) [facility] WBC 7.87 3.40 - 10.80 10*3/mm3 04/11/2025 4:02 AM EDT [facility] RBC 4.70 4.14 - 5.80 10*6/mm3 04/11/2025 4:02 AM EDT [facility] Hemoglobin 12.8(L) 13.0 - 17.7 g/dL 04/11/2025 4:02 AM EDT [facility] Hematocrit 40.5 37.5 - 51.0 % 04/11/2025 4:02 AM [facility] MCV 86.2 79.0 - 97.0 fL 04/11/2025 4:[facility] MCH 27.2 26.6 - 33.0 pg 04/11/2025 4:02 AM [facility] MCHC 31.6 31.5 - 35.7 g/dL 04/11/2025 4:02 AM [facility] RDW 12.9 12.3 - 15.4 % 04/11/2025 4:02 AM [facility] RDW-SD 40.5 37.0 - 54.0 fl 04/11/2025 4:02 AM [facility] MPV 9.2 6.0 - 12.0 fL 04/11/2025 4:02 AM [facility] Platelets 267 140 - 450 10*3/mm3 04/11/2025 4:02 AM [facility] Neutrophil % 59.5 42.7 - 76.0 % 04/11/2025 4:02 AM [facility] Lymphocyte % 26.3 19.6 - 45.3 % 04/11/2025 4:02 AM [facility] Monocyte % 9.3 5.0 - 12.0 % 04/11/2025 4:02 AM [facility] Eosinophil % 4.1 0.3 - 6.2 % 04/11/2025 4:02 AM [facility] Basophil % 0.4 0.0 - 1.5 % 04/11/2025 4:02 AM [facility] Immature Grans % 0.4 0.0 - 0.5 % 04/11/2025 4:02 AM [facility] Neutrophils, Absolute 4.69 1.70 - 7.00 10*3/mm3 04/11/2025 4:02 AM [facility] Lymphocytes, Absolute 2.07 0.70 - 3.10 10*3/mm3 04/11/2025 4:02 AM EDT [facility] Monocytes, Absolute 0.73 0.10 - 0.90 10*3/mm3 04/11/2025 4:02 AM EDT [facility] Eosinophils, Absolute 0.32 0.00 - 0.40 10*3/mm3 04/11/2025 4:02 AM EDT [facility] Basophils, Absolute 0.03 0.00 - 0.20 10*3/mm3 04/11/2025 4:02 AM EDT [facility] Immature Grans, Absolute 0.03 0.00 - 0.05 10*3/mm3 04/11/2025 4:02 AM EDT [facility] nRBC 0.0 0.0 - 0.2 /100 WBC 04/11/2025 4:02 AM EDT [facility] Blood Venipuncture / Unknown 04/11/2025 3:40 AM EDT 04/11/2025 3:59 AM EDT Sushil Dean Jr., MD LAB BLOOD ORDERABLES Fi nal Result [facility]
[address] [place] [address], * (ABNORMAL) Comprehensive Metabolic Panel (04/11/2025 3:40 AM EDT) Glucose 108(H) 65 - 99 mg/dL 04/11/2025 4:19 AM EDT [facility] BUN 12.5 6.0 - 20.0 mg/dL 04/11/2025 4:19 AM EDT [facility] Creatinine 0.68(L) 0.76 - 1.27 mg/dL 04/11/2025 4:19 AM EDT [facility] Sodium 140 136 - 145 mmol/L 04/11/2025 4:19 AM EDT [facility] Potassium 3.8 3.5 - 5.2 mmol/L 04/11/2025 4:19 AM EDT [facility] Chloride 105 98 - 107 mmol/L 04/11/2025 4:19 AM [facility] CO2 28.2 22.0 - 29.0 mmol/L 04/11/2025 4:19 AM [facility] Calcium 8.2(L) 8.6 - 10.5 mg/dL 04/11/2025 4:19 AM [facility] Total Protein 6.1 6.0 - 8.5 g/dL 04/11/2025 4:19 AM [facility] Albumin 3.1(L) 3.5 - 5.2 g/dL 04/11/2025 4:19 AM [facility] ALT (SGPT) 52(H) 1 - 41 U/L 04/11/2025 4:19 AM [facility] AST (SGOT) 40 1 - 40 U/L 04/11/2025 4:19 AM [facility] Alkaline Phosphatase 99 39 - 117 U/L 04/11/2025 4:19 AM [facility] Total Bilirubin 0.2 0.0 - 1.2 mg/dL 04/11/2025 4:19 AM [facility] Globulin 3.0 gm/dL 04/11/2025 4:19 AM [facility] Comment:Calculated Result A/G Ratio 1.0 g/dL 04/11/2025 4:19 AM [facility] BUN/Creatinine Ratio 18.4 7.0 - 25.0 04/11/2025 4:19 AM [facility] Anion Gap 6.8 5.0 - 15.0 mmol/L 04/11/2025 4:19 AM [facility] eGFR 117.5 >60.0 mL/min/1.7 3 04/11/2025 4:19 AM [facility] Blood Venipuncture / Unknown 04/11/2025 3:40 AM EDT 04/11/2025 3:56 AM [facility] - 04/11/2025 4:19 AM [...] include race as a factor Rosario Sergio [employer] LAB BLOOD ORDERABLES Final Result [facility]
[address] [place] [address], * (ABNORMAL) CBC Auto Differential (04/10/2025 3:46 AM EDT) WBC 9.60 3.40 - 10.80 10*3/mm3 04/10/2025 3:56 AM EDT [facility] RBC 4.67 4.14 - 5.80 10*6/mm3 04/10/2025 3:56 AM EDT [facility] Hemoglobin 12.9(L) 13.0 - 17.7 g/dL 04/10/2025 3:56 AM EDT [facility] Hematocrit 40.1 37.5 - 51.0 % 04/10/2025 3:56 AM EDT [facility] MCV 85.9 79.0 - 97.0 fL 04/10/2025 3:56 AM EDT [facility] MCH 27.6 26.6 - 33.0 pg 04/10/2025 3:56 AM EDT [facility] MCHC 32.2 31.5 - 35.7 g/dL 04/10/2025 3:56 AM EDT [facility] RDW 12.9 12.3 - 15.4 % 04/10/2025 3:56 AM EDT [facility] RDW-SD 40.5 37.0 - 54.0 fl 04/10/2025 3:56 AM [facility] MPV 9.5 6.0 - 12.0 fL 04/10/2025 3:56 AM [facility] Platelets 227 140 - 450 10*3/mm3 04/10/2025 3:56 AM [facility] Neutrophil % 59.1 42.7 - 76.0 % 04/10/2025 3:[facility] Lymphocyte % 29.0 19.6 - 45.3 % 04/10/2025 3:56 AM [facility] Monocyte % 8.1 5.0 - 12.0 % 04/10/2025 3:56 AM [facility] Eosinophil % 3.2 0.3 - 6.2 % 04/10/2025 3:56 AM [facility] Basophil % 0.4 0.0 - 1.5 % 04/10/2025 3:56 AM [facility] Immature Grans % 0.2 0.0 - 0.5 % 04/10/2025 3:56 AM [facility] Neutrophils, Absolute 5.67 1.70 - 7.00 10*3/mm3 04/10/2025 3:56 AM [facility] Lymphocytes, Absolute 2.78 0.70 - 3.10 10*3/mm3 04/10/2025 3:56 AM [facility] Monocytes, Absolute 0.78 0.10 - 0.90 10*3/mm3 04/10/2025 3:56 AM [facility] Eosinophils, Absolute 0.31 0.00 - 0.40 10*3/mm3 04/10/2025 3:56 AM [facility] Basophils, Absolute 0.04 0.00 - 0.20 10*3/mm3 04/10/2025 3:56 AM [facility] Immature Grans, Absolute 0.02 0.00 - 0.05 10*3/mm3 04/10/2025 3:56 AM EDT [facility] nRBC 0.0 0.0 - 0.2 /100 WBC 04/10/2025 3:56 AM EDT [facility] Blood Venipuncture / Unknown 04/10/2025 3:46 AM EDT 04/10/2025 3:53 AM EDT us Jason Álvarez DO LAB BLOOD ORDERABLES Final Resul t [facility]
[address] [place] [address], * (ABNORMAL) Basic Metabolic Panel (04/10/2025 3:46 AM EDT) Glucose 125(H) 65 - 99 mg/dL 04/10/2025 4:20 AM EDT [facility] BUN 15.9 6.0 - 20.0 mg/dL 04/10/2025 4:20 AM EDT [facility] Creatinine 0.77 0.76 - 1.27 mg/dL 04/10/2025 4:20 AM EDT [facility] Sodium 137 136 - 145 mmol/L 04/10/2025 4:20 AM EDT [facility] Potassium 3.9 3.5 - 5.2 mmol/L 04/10/2025 4:20 AM EDT [facility] Chloride 102 98 - 107 mmol/L 04/10/2025 4:20 AM EDT [facility] CO2 26.9 22.0 - 29.0 mmol/L 04/10/2025 4:20 AM EDT [facility] Calcium 7.9(L) 8.6 - 10.5 mg/dL 04/10/2025 4:20 AM EDT [facility] BUN/Creatinine Ratio 20.6 7.0 - 25.0 04/10/2025 4:20 AM EDT [facility] Anion Gap 8.1 5.0 - 15.0 mmol/L 04/10/2025 4:[facility] eGFR 113.2 >60.0 mL/min/1.7 3 04/10/2025 4:20 AM EDT [facility] Blood Venipuncture / Unknown 04/10/2025 3:46 AM EDT 04/10/2025 3:52 AM EDT Narrative [facility] - 04/10/2025 4:20 AM EDT [...] ORDERABLES Final Resul t Performing Organization Address City/[facility]/ZIP Co de Phone Number [facility]
[address] [place] [address], * Heparin Anti-Xa (04/10/2025 3:46 AM EDT) Heparin Anti-Xa (UFH) 0.35 0.30 - 0.70 IU/ml 04/10/2025 4:23 AM EDT [facility] Blood Venipuncture / Unknown 04/10/2025 3:46 AM EDT 04/10/2025 3:53 AM EDT Larisa Hamilton [facility] LAB BLOOD ORDERABLES Final R esult [facility]
[address] [place] [address], * Heparin Anti-Xa (04/09/2025 10:05 AM EDT) Heparin Anti-Xa (UFH) 0.36 0.30 - 0.70 IU/ml 04/09/2025 11:12 AM EDT [facility] Blood Venipuncture / Unknown 04/09/2025 10:05 AM EDT 04/09/2025 10:47 AM EDT Larisa Hamilton [facility] LAB BLOOD ORDERABLES Final R esult [facility]
[address] [place] [address], * (ABNORMAL) CBC Auto Differential (04/09/2025 4:18 AM EDT) Pathologist [facility] WBC 11.00(H) 3.40 - 10.80 10*3/mm3 04/09/2025 4:50 AM EDT [facility] RBC 4.70 4.14 - 5.80 10*6/mm3 04/09/2025 4:50 AM EDT [facility] Hemoglobin 13.0 13.0 - 17.7 g/dL 04/09/2025 4:50 AM EDT [facility] Hematocrit 40.4 37.5 - 51.0 % 04/09/2025 4:50 AM EDT [facility] MCV 86.0 79.0 - 97.0 fL 04/09/2025 4:50 AM EDT [facility] MCH 27.7 26.6 - 33.0 pg 04/09/2025 4:50 AM EDT [facility] MCHC 32.2 31.5 - 35.7 g/dL 04/09/2025 4:50 AM EDT [facility] RDW 12.8 12.3 - 15.4 % 04/09/2025 4:50 AM EDT [facility] RDW-SD 39.9 37.0 - 54.0 fl 04/09/2025 4:50 AM EDT [facility] MPV 10.0 6.0 - 12.0 fL 04/09/2025 4:50 AM [facility] Platelets 211 140 - 450 10*3/mm3 04/09/2025 4:50 AM [facility] Neutrophil % 74.8 42.7 - 76.0 % 04/09/2025 4:50 AM [facility] Lymphocyte % 15.4(L) 19.6 - 45.3 % 04/09/2025 4:50 AM [facility] Monocyte % 8.5 5.0 - 12.0 % 04/09/2025 4:50 AM [facility] Eosinophil % 0.6 0.3 - 6.2 % 04/09/2025 4:50 AM [facility] Basophil % 0.4 0.0 - 1.5 % 04/09/2025 4:50 AM [facility] Immature Grans % 0.3 0.0 - 0.5 % 04/09/2025 4:50 AM [facility] Neutrophils, Absolute 8.23(H) 1.70 - 7.00 10*3/mm3 04/09/2025 4:50 AM [facility] Lymphocytes, Absolute 1.69 0.70 - 3.10 10*3/mm3 04/09/2025 4:50 AM [facility] Monocytes, Absolute 0.94(H) 0.10 - 0.90 10*3/mm3 04/09/2025 4:50 AM [facility] Eosinophils, Absolute 0.07 0.00 - 0.40 10*3/mm3 04/09/2025 4:50 AM [facility] Basophils, Absolute 0.04 0.00 - 0.20 10*3/mm3 04/09/2025 4:50 AM [facility] Immature Grans, Absolute 0.03 0.00 - 0.05 10*3/mm3 04/09/2025 4:50 AM [facility] nRBC 0.0 0.0 - 0.2 /100 WBC 04/09/2025 4:50 AM EDT [facility] Blood Venipuncture / Unknown 04/09/2025 4:18 AM EDT 04/09/2025 4:31 AM EDT Sushil Dean Jr., MD LAB BLOOD ORDERABLES Fi nal Result Performing Organization Address City/[facility]/ZIP Co de Phone Number [facility]
[address] [place] [address], * Heparin Anti-Xa (04/09/2025 4:18 AM EDT) Heparin Anti-Xa (UFH) 0.41 0.30 - 0.70 IU/ml 04/09/2025 4:53 AM EDT [facility] Blood Venipuncture / Unknown 04/09/2025 4:18 AM EDT 04/09/2025 4:31 AM EDT Una LundbergD LAB BLOOD ORDERABLES Final R esult Performing Organization Address City/[facility]/ZIP Co de Phone Number [facility]
[address] [place] [address], * (ABNORMAL) Basic Metabolic Panel (04/09/2025 4:18 AM EDT) Glucose 147(H) 65 - 99 mg/dL 04/09/2025 5:33 AM EDT [facility] BUN 23.0(H) 6.0 - 20.0 mg/dL 04/09/2025 5:33 AM EDT [facility] Creatinine 1.15 0.76 - 1.27 mg/dL 04/09/2025 5:33 AM EDT [facility] Sodium 135(L) 136 - 145 mmol/L 04/09/2025 5:33 AM EDT [facility] Potassium 4.2 3.5 - 5.2 mmol/L 04/09/2025 5:33 AM EDT [facility] Chloride 100 98 - 107 mmol/L 04/09/2025 5:33 AM EDT [facility] CO2 26.0 22.0 - 29.0 mmol/L 04/09/2025 5:33 AM EDT [facility] Calcium 8.2(L) 8.6 - 10.5 mg/dL 04/09/2025 5:33 AM EDT [facility] BUN/Creatinine Ratio 20.0 7.0 - 25.0 04/09/2025 5:33 AM EDT [facility] Anion Gap 9.0 5.0 - 15.0 mmol/L 04/09/2025 5:33 AM EDT [facility] eGFR 80.5 >60.0 mL/min/1.7 3 04/09/2025 5:33 AM EDT [facility] Blood Venipuncture / Unknown 04/09/2025 4:18 AM EDT 04/09/2025 4:29 AM EDT Narrative [facility] - 04/09/2025 5:33 AM EDT [...] MD LAB BLOOD ORDERABLES Fi nal Result [facility]
[address] [place] [address], * Wound Culture - Swab, Leg, Right (04/08/2025 3:40 PM EDT) Wound Culture No growth at 3 days ALIZA 04/11/2025 10:40 AM EDT [facility] Gram Stain Few (2+) WBCs seen 04/11/2025 10:40 AM EDT [facility] Gram Stain No organisms seen 04/11/2025 10:40 AM EDT [facility] Swab Structure of right lower limb / Unknown 04/08/2025 3:40 PM EDT 04/08/2025 8:05 PM EDT Sushil Dean Jr., MD MICROBIOLOGY - GENERAL ORDERABLES Final Result Performing Organization Address City/[facility]/ZIP Co de Phone Number [facility]
[address] [place] [address], [facility]
[address] [place] [address], [place] [phone] * Anaerobic Culture - Swab, Leg, Right (04/08/2025 3:40 PM EDT) Anaerobic Culture No anaerobes isolated at 5 days ALIZA 04/13/2025 7:24 AM EDT [facility] Swab Structure of right lower limb / Unknown 04/08/2025 3:40 PM EDT 04/08/2025 8:05 PM EDT us Sushil Dean Jr., MD MICROBIOLOGY - GENERAL ORDERABLES Final Result Performing Organization Address City/[facility]/ZIP Co de Phone Number [facility]
[address] [place] [address], * Scan Slide (04/08/2025 8:41 AM EDT) RBC Morphology Normal Normal 04/08/2025 11:02 AM EDT [facility] WBC Morphology Normal Normal 04/08/2025 11:02 AM EDT [facility] Platelet Estimate Adequate Normal 04/08/2025 11:02 AM EDT [facility] Clumped Platelets Present None Seen 04/08/2025 11:02 AM EDT [facility] Blood Venipuncture / Unknown 04/08/2025 8:41 AM EDT 04/08/2025 9:10 AM EDT Una Perla PharmD LAB BLOOD ORDERABLES Final R esult [facility]
[address] [place] [address], * (ABNORMAL) CBC Auto Differential (04/08/2025 8:41 AM EDT) WBC 10.07 3.40 - 10.80 10*3/mm3 04/08/2025 11:02 AM EDT [facility] RBC 5.01 4.14 - 5.80 10*6/mm3 04/08/2025 11:02 AM EDT [facility] Hemoglobin 14.0 13.0 - 17.7 g/dL 04/08/2025 11:02 AM EDT [facility] Hematocrit 42.7 37.5 - 51.0 % 04/08/2025 11:02 AM EDT [facility] MCV 85.2 79.0 - 97.0 fL 04/08/2025 11:02 AM EDT [facility] MCH 27.9 26.6 - 33.0 pg 04/08/2025 11:02 AM EDT [facility] MCHC 32.8 31.5 - 35.7 g/dL 04/08/2025 11:02 AM EDT [facility] RDW 12.6 12.3 - 15.4 % 04/08/2025 11:02 AM T [facility] RDW-SD 38.9 37.0 - 54.0 fl 04/08/2025 11:02 AM EDT [facility] MPV 11.0 6.0 - 12.0 fL 04/08/2025 11:02 AM EDT [facility] Platelets 118(L) 140 - 450 10*3/mm3 04/08/2025 11:02 AM [facility] Neutrophil % 85.1(H) 42.7 - 76.0 % 04/08/2025 11:02 AM [facility] Lymphocyte % 9.3(L) 19.6 - 45.3 % 04/08/2025 11:02 AM [facility] Monocyte % 4.6(L) 5.0 - 12.0 % 04/08/2025 11:02 AM [facility] Eosinophil % 0.3 0.3 - 6.2 % 04/08/2025 11:02 AM [facility] Basophil % 0.2 0.0 - 1.5 % 04/08/2025 11:02 AM [facility] Immature Grans % 0.5 0.0 - 0.5 % 04/08/2025 11:02 AM [facility] Neutrophils, Absolute 8.57(H) 1.70 - 7.00 10*3/mm3 04/08/2025 11:02 AM [facility] Lymphocytes, Absolute 0.94 0.70 - 3.10 10*3/mm3 04/08/2025 11:02 AM [facility] Monocytes, Absolute 0.46 0.10 - 0.90 10*3/mm3 04/08/2025 11:02 AM [facility] Eosinophils, Absolute 0.03 0.00 - 0.40 10*3/mm3 04/08/2025 11:02 AM [facility] Basophils, Absolute 0.02 0.00 - 0.20 10*3/mm3 04/08/2025 11:02 AM [facility] Immature Grans, Absolute 0.05 0.00 - 0.05 10*3/mm3 04/08/2025 11:02 AM [facility] nRBC 0.0 0.0 - 0.2 /100 WBC 04/08/2025 11:02 AM [facility] Blood Venipuncture / Unknown 04/08/2025 8:41 AM EDT 04/08/2025 9:10 AM EDT Una Minda PharmD LAB BLOOD ORDERABLES Final R esult [facility]
[address] [place] [address], * (ABNORMAL) Basic Metabolic Panel (04/08/2025 8:41 AM EDT) Pathologist [facility] Glucose 125(H) 65 - 99 mg/dL 04/08/2025 9:51 AM EDT [facility] BUN 13.2 6.0 - 20.0 mg/dL 04/08/2025 9:51 AM EDT [facility] Creatinine 0.69(L) 0.76 - 1.27 mg/dL 04/08/2025 9:51 AM EDT [facility] Sodium 136 136 - 145 mmol/L 04/08/2025 9:51 AM EDT [facility] Potassium 4.6 3.5 - 5.2 mmol/L 04/08/2025 9:51 AM EDT [facility] Chloride 102 98 - 107 mmol/L 04/08/2025 9:51 AM EDT [facility] CO2 23.5 22.0 - 29.0 mmol/L 04/08/2025 9:51 AM EDT [facility] Calcium 8.4(L) 8.6 - 10.5 mg/dL 04/08/2025 9:51 AM EDT [facility] BUN/Creatinine Ratio 19.1 7.0 - 25.0 04/08/2025 9:51 AM EDT [facility] Anion Gap 10.5 5.0 - 15.0 mmol/L 04/08/2025 9:51 AM EDT [facility] eGFR 117.0 >60.0 mL/min/1.7 3 04/08/2025 9:51 AM EDT [facility] Blood Venipuncture / Unknown 04/08/2025 8:41 AM EDT 04/08/2025 9:09 AM EDT Narrative [facility] - 04/08/2025 9:51 AM EDT [...] ORDERABLES Fi nal Result Performing Organization Address City/[facility]/ZIP Co de Phone Number [facility]
[address] [place] [address], * Heparin Anti-Xa (04/08/2025 8:41 AM EDT) Heparin Anti-Xa (UFH) 0.33 0.30 - 0.70 IU/ml 04/08/2025 9:40 AM EDT [facility] Blood Venipuncture / Unknown 04/08/2025 8:41 AM EDT 04/08/2025 9:10 AM EDT us Sushil Dean Jr., MD LAB BLOOD ORDERABLES Fi nal Result [facility]
[address] [place] [address], [place] [phone] * [place] C Arm During Surgery (04/07/2025 9:32 PM EDT) Narrative SYSTEMGENERATED, DOCUMENTATION - 04/07/2025 9:38 PM EDT This procedure was auto-finalized with no dictation required. us Sushil Dean Jr., MD IMG FLUOROSCOPY ORDERAB LES Final Result * Wound Culture - Swab, Leg, Right (04/07/2025 9:14 PM EDT) Wound Culture No growth at 3 days ALIZA 04/11/2025 10:40 AM EDT [facility] Gram Stain Occasional WBCs seen 04/11/2025 10:40 AM EDT [facility] Gram Stain No organisms seen 04/11/2025 10:40 AM EDT [facility] Swab Structure of right lower limb / Unknown Collection / Unknown 04/07/2025 9:14 PM EDT 04/08/2025 4:36 AM EDT Sushil Dean Jr., MD MICROBIOLOGY - GENERAL ORDERABLES Final Result Performing Organization Address City/[facility]/ZIP Co de Phone Number [facility]
[address] [place] [address], [facility]
[address] [place] [address], [place] [phone] * Anaerobic Culture - Swab, Leg, Right (04/07/2025 9:14 PM EDT) Anaerobic Culture No anaerobes isolated at 5 days ALIZA 04/13/2025 7:21 AM EDT [facility] Swab Structure of right lower limb / Unknown Collection / Unknown 04/07/2025 9:14 PM EDT 04/08/2025 4:36 AM EDT us Sushil Dean Jr., MD MICROBIOLOGY - GENERAL ORDERABLES Final Result [facility]
[address] [place] [address], * Anaerobic Culture - Tissue, Leg (04/07/2025 9:13 PM EDT) Anaerobic Culture No anaerobes isolated at 5 days ALIZA 04/13/2025 7:21 AM EDT [facility] Tissue Lower limb structure / Unknown Collection / Unknown 04/07/2025 9:13 PM EDT 04/08/2025 4:54 AM EDT Jason Álvarez DO MICROBIOLOGY - GENERAL ORDERABLE S Final Result Performing Organization Address [facility] Co de Phone Number [facility]
[address] [place] [address], * Tissue / Bone Culture - Tissue, Leg, Right (04/07/2025 9:13 PM EDT) Tissue Culture No growth at 3 days ALIZA 04/11/2025 10:36 AM EDT [facility] Gram Stain Rare (1+) WBCs seen 04/11/2025 10:36 AM EDT [facility] Gram Stain No organisms seen 04/11/2025 10:36 AM EDT [facility] Tissue Structure of right lower limb / Unknown 04/07/2025 9:13 PM EDT 04/08/2025 4:54 AM EDT Sushil Dean Jr., MD MICROBIOLOGY - GENERAL ORDERABLES Final Result Performing Organization Address [facility] de Phone Number [facility]
[address] [place] [address], [facility]
[address] [place] [address], * (ABNORMAL) Wound Culture - Swab, Leg, Right (04/07/2025 9:07 PM EDT) Wound Culture Light growth (2+) Staphylococcus aureus, MRSA(A) ALIZA 04/10/2025 10:38 AM EDT [facility] Comment: Methicillin resistant Staphylococcus aureus, Patient may be an isolation risk. Gram Stain Few (2+) WBCs seen 04/10/2025 10:38 AM EDT [facility] Gram Stain No organisms seen 025 10:38 AM EDT [facility] Swab Structure of right lower [...] GENERAL ORDERABLES Final Result Performing Organization Address City/[facility]/ZIP Co de Phone Number [facility]
[address] [place] [address], [facility] [place] [address], [place] [phone] * Anaerobic Culture - Swab, Leg, Right (04/07/2025 9:07 PM EDT) Anaerobic Culture No anaerobes isolated at 5 days ALIZA 04/13/2025 7:21 AM EDT [facility] Swab Structure of right lower limb / Unknown Collection / Unknown 04/07/2025 9:07 PM EDT 04/08/2025 4:36 AM EDT Sushil Dean Jr., MD MICROBIOLOGY - GENERAL ORDERABLES Final Result [facility]
[address] [place] [address], [place] [phone] * Heparin Anti-Xa (04/07/2025 9:10 AM EDT) Heparin Anti-Xa ([facility]) 0.30 0.30 - 0.70 IU/ml 04/07/2025 10:12 AM EDT [facility] Blood Venipuncture / Unknown 04/07/2025 9:10 AM EDT 04/07/2025 9:38 AM EDT Una Perla PharmD LAB BLOOD ORDERABLES Final R esult [facility]
[address] [place] [address], * (ABNORMAL) CBC Auto Differential (04/07/2025 9:10 AM EDT) [facility] WBC 8.63 3.40 - 10.80 10*3/mm3 04/07/2025 9:50 AM EDT [facility] RBC 5.23 4.14 - 5.80 10*6/mm3 04/07/2025 9:50 AM EDT [facility] Hemoglobin 14.7 13.0 - 17.7 g/dL 04/07/2025 9:50 AM EDT [facility] Hematocrit 44.8 37.5 - 51.0 % 04/07/2025 9:50 AM EDT [facility] MCV 85.7 79.0 - 97.0 fL 04/07/2025 9:50 AM EDT [facility] MCH 28.1 26.6 - 33.0 pg 04/07/2025 9:50 AM EDT [facility] MCHC 32.8 31.5 - 35.7 g/dL 04/07/2025 9:50 AM EDT [facility] RDW 12.8 12.3 - 15.4 % 04/07/2025 9:50 AM EDT [facility] RDW-SD 39.9 37.0 - 54.0 fl 04/07/2025 9:50 AM EDT [facility] MPV 10.8 6.0 - 12.0 fL 04/07/2025 9:50 AM [facility] Platelets 149 140 - 450 10*3/mm3 04/07/2025 9:50 AM [facility] Neutrophil % 66.7 42.7 - 76.0 % 04/07/2025 9:50 AM [facility] Lymphocyte % 20.5 19.6 - 45.3 % 04/07/2025 9:50 AM [facility] Monocyte % 9.8 5.0 - 12.0 % 04/07/2025 9:50 AM [facility] Eosinophil % 2.1 0.3 - 6.2 % 04/07/2025 9:50 AM [facility] Basophil % 0.3 0.0 - 1.5 % 04/07/2025 9:50 AM [facility] Immature Grans % 0.6(H) 0.0 - 0.5 % 04/07/2025 9:50 AM [facility] Neutrophils, Absolute 5.75 1.70 - 7.00 10*3/mm3 04/07/2025 9:50 AM [facility] Lymphocytes, Absolute 1.77 0.70 - 3.10 10*3/mm3 04/07/2025 9:50 AM [facility] Monocytes, Absolute 0.85 0.10 - 0.90 10*3/mm3 04/07/2025 9:50 AM [facility] Eosinophils, Absolute 0.18 0.00 - 0.40 10*3/mm3 04/07/2025 9:50 AM [facility] Basophils, Absolute 0.03 0.00 - 0.20 10*3/mm3 04/07/2025 9:50 AM [facility] Immature Grans, Absolute 0.05 0.00 - 0.05 10*3/mm3 04/07/2025 9:50 AM [facility] nRBC 0.0 0.0 - 0.2 /100 WBC 04/07/2025 9:50 AM [facility] Blood Venipuncture / Unknown 04/07/2025 9:10 AM EDT 04/07/2025 9:38 AM EDT Jason Álvarez DO LAB BLOOD ORDERABLES Final Resul t [facility]
[address] [place] [address], * (ABNORMAL) Basic Metabolic Panel (04/07/2025 9:10 AM EDT) Glucose 112(H) 65 - 99 mg/dL 04/07/2025 10:19 AM EDT [facility] BUN 13.1 6.0 - 20.0 mg/dL 04/07/2025 10:19 AM EDT [facility] Creatinine 0.77 0.76 - 1.27 mg/dL 04/07/2025 10:19 AM EDT [facility] Sodium 139 136 - 145 mmol/L 04/07/2025 10:19 AM EDT [facility] Potassium 4.2 3.5 - 5.2 mmol/L 04/07/2025 10:19 AM EDT [facility] Comment:Specimen hemolyzed. Result may be falsely elevated. Chloride 105 98 - 107 mmol/L 04/07/2025 10:19 AM EDT [facility] CO2 24.8 22.0 - 29.0 mmol/L 04/07/2025 10:19 AM EDT [facility] Calcium 8.6 8.6 - 10.5 mg/dL 04/07/2025 10:19 AM EDT [facility] BUN/Creatinine Ratio 17.0 7.0 - 25.0 04/07/2025 10:19 AM EDT [facility] Anion Gap 9.2 5.0 - 15.0 mmol/L 04/07/2025 10:19 AM EDT [facility] eGFR 113.2 >60.0 mL/min/1.7 3 04/07/2025 10:19 AM EDT [facility] Blood Venipuncture / Unknown 04/07/2025 9:10 AM EDT 04/07/2025 9:38 AM EDT Narrative [facility] - 04/07/2025 10:19 AM EDT [...] DO LAB BLOOD ORDERABLES Final Resul t [facility]
[address] [place] [address], * MRI Tibia Fibula Right With & [...] [place] 04/07/2025 9:58 AM EDT Workstation ID: [id number] Narrative 04/07/2025 9:58 AM EDT MRI TIBIA [...] [place] 04/07/2025 9:58 AM EDT Workstation ID: [id number] Sushil Dean Jr., MD IMG MRI ORDERABLES Mary Beth l Result * Heparin Anti-Xa (04/07/2025 1:42 AM EDT) Heparin Anti-Xa (UFH) 0.38 0.30 - 0.70 IU/ml 04/07/2025 2:14 AM EDT [facility] Blood Venipuncture / Unknown 04/07/2025 1:42 AM EDT 04/07/2025 1:54 AM EDT Chelsie Turpin [facility] LAB BLOOD ORDERABLES Final R esult [facility]
[address] [place] [address], * Heparin Anti-Xa (04/06/2025 7:16 PM EDT) Heparin Anti-Xa (UFH) 0.33 0.30 - 0.70 IU/ml 04/06/2025 7:50 PM EDT [facility] Blood Venipuncture / Unknown 04/06/2025 7:16 PM EDT 04/06/2025 7:35 PM EDT Cherri Rogerio [facility] LAB BLOOD ORDERABLES Final Res ult Performing Organization Address City/[facility]/ZIP Co de Phone Number [facility]
[address] [place] [address], * Potassium (04/06/2025 7:16 PM EDT) Potassium 4.0 3.5 - 5.2 mmol/L 04/06/2025 7:53 PM EDT [facility] Blood Venipuncture / Unknown 04/06/2025 7:16 PM EDT 04/06/2025 7:35 PM EDT Jason Álvarez DO LAB BLOOD ORDERABLES Final Resul t Performing Organization Address [facility] Co de Phone Number [facility]
[address] [place] [address], * (ABNORMAL) Heparin Anti-Xa (04/06/2025 12:36 PM EDT) Heparin Anti-Xa (UFH) 0.24(L) 0.30 - 0.70 IU/ml 04/06/2025 1:23 PM EDT [facility] Blood Venipuncture / Unknown 04/06/2025 12:36 PM EDT 04/06/2025 1:07 PM EDT Una Perla PharmD LAB BLOOD ORDERABLES Final R esult Performing Organization Address City/[facility]/ZIP Co de Phone Number [facility]
[address] [place] [address], * (ABNORMAL) Heparin Anti-Xa (04/06/2025 3:42 AM EDT) Heparin Anti-Xa (UFH) 0.25(L) 0.30 - 0.70 IU/ml 04/06/2025 5:30 AM EDT [facility] Blood Venipuncture / Unknown 04/06/2025 3:42 AM EDT 04/06/2025 4:59 AM EDT us Chelsie Turpin [facility] LAB BLOOD ORDERABLES Final R esult [facility]
[address] [place] [address], * (ABNORMAL) Basic Metabolic Panel (04/06/2025 3:42 AM EDT) Glucose 94 65 - 99 mg/dL 04/06/2025 5:59 AM EDT [facility] BUN 12.8 6.0 - 20.0 mg/dL 04/06/2025 5:59 AM EDT [facility] Creatinine 0.80 0.76 - 1.27 mg/dL 04/06/2025 5:59 AM EDT [facility] Sodium 138 136 - 145 mmol/L 04/06/2025 5:59 AM EDT [facility] Potassium 3.6 3.5 - 5.2 mmol/L 04/06/2025 5:59 AM EDT [facility] Chloride 103 98 - 107 mmol/L 04/06/2025 5:59 AM EDT [facility] CO2 24.2 22.0 - 29.0 mmol/L 04/06/2025 5:59 AM EDT [facility] Calcium 8.0(L) 8.6 - 10.5 mg/dL 04/06/2025 5:59 AM EDT [facility] BUN/Creatinine Ratio 16.0 7.0 - 25.0 04/06/2025 5:59 AM EDT [facility] Anion Gap 10.8 5.0 - 15.0 mmol/L 04/06/2025 5:59 AM EDT [facility] eGFR 111.9 >60.0 mL/min/1.7 3 04/06/2025 5:59 AM EDT [facility] Blood Venipuncture / Unknown 04/06/2025 3:42 AM EDT 04/06/2025 5:20 AM EDT [facility] - 04/06/2025 5:59 AM EDT GFR [...] DO LAB BLOOD ORDERABLES Final Resul t [facility]
[address] [place] [address], * (ABNORMAL) CBC Auto Differential (04/06/2025 3:41 AM EDT) WBC 10.86(H) 3.40 - 10.80 10*3/mm3 04/06/2025 5:04 AM EDT [facility] RBC 5.08 4.14 - 5.80 10*6/mm3 04/06/2025 5:04 AM EDT [facility] Hemoglobin 13.9 13.0 - 17.7 g/dL 04/06/2025 5:04 AM EDT [facility] Hematocrit 43.7 37.5 - 51.0 % 04/06/2025 5:04 AM EDT [facility] MCV 86.0 79.0 - 97.0 fL 04/06/2025 5:04 AM EDT [facility] MCH 27.4 26.6 - 33.0 pg 04/06/2025 5:04 AM EDT [facility] MCHC 31.8 31.5 - 35.7 g/dL 04/06/2025 5:04 AM [facility] RDW 12.8 12.3 - 15.4 % 04/06/2025 5:04 AM [facility] RDW-SD 40.0 37.0 - 54.0 fl 04/06/2025 5:04 AM [facility] MPV 11.7 6.0 - 12.0 fL 04/06/2025 5:04 AM [facility] Platelets 115(L) 140 - 450 10*3/mm3 04/06/2025 5:04 AM [facility] Neutrophil % 65.3 42.7 - 76.0 % 04/06/2025 5:04 AM [facility] Lymphocyte % 20.5 19.6 - 45.3 % 04/06/2025 5:04 AM [facility] Monocyte % 11.8 5.0 - 12.0 % 04/06/2025 5:04 AM [facility] Eosinophil % 1.8 0.3 - 6.2 % 04/06/2025 5:04 AM [facility] Basophil % 0.3 0.0 - 1.5 % 04/06/2025 5:04 AM [facility] Immature Grans % 0.3 0.0 - 0.5 % 04/06/2025 5:04 AM [facility] Neutrophils, Absolute 7.09(H) 1.70 - 7.00 10*3/mm3 04/06/2025 5:04 AM [facility] Lymphocytes, Absolute 2.23 0.70 - 3.10 10*3/mm3 04/06/2025 5:04 AM [facility] Monocytes, Absolute 1.28(H) 0.10 - 0.90 10*3/mm3 04/06/2025 5:04 AM [facility] Eosinophils, Absolute 0.20 0.00 - 0.40 10*3/mm3 04/06/2025 5:04 AM [facility] Basophils, Absolute 0.03 0.00 - 0.20 10*3/mm3 04/06/2025 5:04 AM EDT [facility] Immature Grans, Absolute 0.03 0.00 - 0.05 10*3/mm3 04/06/2025 5:04 AM EDT [facility] nRBC 0.0 0.0 - 0.2 /100 WBC 04/06/2025 5:04 AM EDT [facility] Blood Venipuncture / Unknown 04/06/2025 3:41 AM EDT 04/06/2025 4:58 AM EDT Jason Álvarez DO LAB BLOOD ORDERABLES Final Resul t Performing Organization Address City/[facility]/ZIP Co de Phone Number [facility]
[address] [place] [address], * Heparin Anti-Xa (04/05/2025 8:43 PM EDT) Heparin Anti-Xa (UFH) 0.38 0.30 - 0.70 IU/ml 04/05/2025 9:09 PM EDT [facility] Blood Venipuncture / Unknown 04/05/2025 8:43 PM EDT 04/05/2025 8:55 PM EDT Cherri Beatty [facility] LAB BLOOD ORDERABLES Final Res ult [facility]
[address] [place] [address], [place] [phone] * CK (04/05/2025 12:15 PM EDT) Creatine Kinase 140 20 - 200 U/L 04/05/2025 1:31 PM EDT [facility] Blood Venipuncture / Unknown 04/05/2025 12:15 PM EDT 04/05/2025 1:03 PM EDT Carlton Mead MD LAB BLOOD ORDERABLES Final R esult Performing Organization Address City/[facility]/ZIP Co de Phone Number [facility]
[address] [place] [address], * (ABNORMAL) Heparin Anti-Xa (04/05/2025 12:15 PM EDT) Heparin Anti-Xa (UFH) 0.17(L) 0.30 - 0.70 IU/ml 04/05/2025 1:21 PM EDT [facility] Blood Venipuncture / Unknown 04/05/2025 12:15 PM EDT 04/05/2025 1:04 PM EDT Una LundbergD LAB BLOOD ORDERABLES Final R esult Performing Organization Address [facility] de Phone Number [facility]
[address] [place] [address], * (ABNORMAL) aPTT (04/05/2025 3:54 AM EDT) PTT 35.3(L) 60.0 - 90.0 seconds 04/05/2025 4:31 AM EDT [facility] Blood Venipuncture / Unknown 04/05/2025 3:54 AM EDT 04/05/2025 4:15 AM EDT Narrative [facility] - 04/05/2025 4:31 AM EDT PTT = The equivalent PTT values for the therapeutic range of heparin levels at 0.3 to 0.5 U/ml are 60 to 70 seconds. Una Perla PharmD LAB BLOOD ORDERABLES Final R esult Performing Organization Address City/[facility] Co de Phone Number [facility]
[address] [place] [address], * Heparin Anti-Xa (04/05/2025 3:54 AM EDT) Heparin Anti-Xa (UFH) 0.30 0.30 - 0.70 IU/ml 04/05/2025 4:32 AM EDT [facility] Blood Venipuncture / Unknown 04/05/2025 3:54 AM EDT 04/05/2025 4:15 AM EDT Una Perla PharmD LAB BLOOD ORDERABLES Final R esult [facility]
[address] [place] [address], * (ABNORMAL) CBC Auto Differential (04/05/2025 3:54 AM EDT) Pathologist [facility] WBC 11.18(H) 3.40 - 10.80 10*3/mm3 04/05/2025 4:20 AM EDT [facility] RBC 5.00 4.14 - 5.80 10*6/mm3 04/05/2025 4:20 AM EDT [facility] Hemoglobin 13.9 13.0 - 17.7 g/dL 04/05/2025 4:20 AM EDT [facility] Hematocrit 42.4 37.5 - 51.0 % 04/05/2025 4:20 AM EDT [facility] MCV 84.8 79.0 - 97.0 fL 04/05/2025 4:20 AM EDT [facility] MCH 27.8 26.6 - 33.0 pg 04/05/2025 4:20 AM EDT [facility] MCHC 32.8 31.5 - 35.7 g/dL 04/05/2025 4:20 AM EDT [facility] RDW 12.9 12.3 - 15.4 % 04/05/2025 4:20 AM EDT [facility] RDW-SD 39.7 37.0 - 54.0 fl 04/05/2025 4:20 AM [facility] MPV 10.2 6.0 - 12.0 fL 04/05/2025 4:20 AM [facility] Platelets 160 140 - 450 10*3/mm3 04/05/2025 4:20 AM [facility] Neutrophil % 73.5 42.7 - 76.0 % 04/05/2025 4:20 AM [facility] Lymphocyte % 14.0(L) 19.6 - 45.3 % 04/05/2025 4:20 AM [facility] Monocyte % 11.0 5.0 - 12.0 % 04/05/2025 4:20 AM [facility] Eosinophil % 0.8 0.3 - 6.2 % 04/05/2025 4:20 AM [facility] Basophil % 0.3 0.0 - 1.5 % 04/05/2025 4:20 AM [facility] Immature Grans % 0.4 0.0 - 0.5 % 04/05/2025 4:20 AM [facility] Neutrophils, Absolute 8.23(H) 1.70 - 7.00 10*3/mm3 04/05/2025 4:20 AM [facility] Lymphocytes, Absolute 1.56 0.70 - 3.10 10*3/mm3 04/05/2025 4:20 AM [facility] Monocytes, Absolute 1.23(H) 0.10 - 0.90 10*3/mm3 04/05/2025 4:20 AM [facility] Eosinophils, Absolute 0.09 0.00 - 0.40 10*3/mm3 04/05/2025 4:20 AM [facility] Basophils, Absolute 0.03 0.00 - 0.20 10*3/mm3 04/05/2025 4:20 AM [facility] Immature Grans, Absolute 0.04 0.00 - 0.05 10*3/mm3 04/05/2025 4:20 AM [facility] nRBC 0.0 0.0 - 0.2 /100 WBC 04/05/2025 4:20 AM EDT [facility] Blood Venipuncture / Unknown 04/05/2025 3:54 AM EDT 04/05/2025 4:16 AM EDT Una Perla PharmD LAB BLOOD ORDERABLES Final R esult [facility]
[address] [place] [address], * (ABNORMAL) Basic Metabolic Panel (04/05/2025 3:54 AM EDT) Glucose 152(H) 65 - 99 mg/dL 04/05/2025 4:40 AM EDT [facility] BUN 17.3 6.0 - 20.0 mg/dL 04/05/2025 4:40 AM EDT [facility] Creatinine 0.92 0.76 - 1.27 mg/dL 04/05/2025 4:40 AM EDT [facility] Sodium 136 136 - 145 mmol/L 04/05/2025 4:40 AM EDT [facility] Potassium 3.9 3.5 - 5.2 mmol/L 04/05/2025 4:40 AM EDT [facility] Chloride 103 98 - 107 mmol/L 04/05/2025 4:40 AM EDT [facility] CO2 24.0 22.0 - 29.0 mmol/L 04/05/2025 4:40 AM EDT [facility] Calcium 7.8(L) 8.6 - 10.5 mg/dL 04/05/2025 4:40 AM EDT [facility] BUN/Creatinine Ratio 18.8 7.0 - 25.0 04/05/2025 4:40 AM EDT [facility] Anion Gap 9.0 5.0 - 15.0 mmol/L 04/05/2025 4:40 AM EDT [facility] eGFR 105.2 >60.0 mL/min/1.7 3 04/05/2025 4:40 AM EDT [facility] Blood Venipuncture / Unknown 04/05/2025 3:54 AM EDT 04/05/2025 4:15 AM EDT Narrative [facility] - 04/05/2025 4:40 AM EDT [...] ORDERABLES Final Re sult Performing Organization Address City/[facility]/ZIP Co de Phone Number [facility]
[address] [place] [address], * (ABNORMAL) aPTT (04/05/2025 12:18 AM EDT) PTT 33.6(L) 60.0 - 90.0 seconds 04/05/2025 12:53 AM EDT [facility] Blood Venipuncture / Unknown 04/05/2025 12:18 AM EDT 04/05/2025 12:37 AM EDT Narrative [facility] - 04/05/2025 12:53 AM EDT PTT = The equivalent PTT values for the therapeutic range of heparin levels at 0.3 to 0.5 U/ml are 60 to 70 seconds. Una LundbergD LAB BLOOD ORDERABLES Final R esult Performing Organization Address [facility]/ZIP Co de Phone Number [facility]
[address] [place] [address], * (ABNORMAL) Protime-INR (04/05/2025 12:18 AM EDT) Protime 15.9(H) 12.2 - 15.3 Seconds 04/05/2025 12:53 AM EDT [facility] INR 1.19(H) 0.89 - 1.12 04/05/2025 12:53 AM EDT [facility] Blood Venipuncture / Unknown 04/05/2025 12:18 AM EDT 04/05/2025 12:37 AM EDT Una Minad LokaliteD LAB BLOOD ORDERABLES Final R esult Performing Organization Address City/[facility]/ZIP Co de Phone Number [facility]
[address] [place] [address], * Heparin Anti-Xa (04/05/2025 12:18 AM EDT) Pathologist [facility] Heparin Anti-Xa (UFH) 0.39 0.30 - 0.70 IU/ml 04/05/2025 12:54 AM EDT [facility] Blood Venipuncture / Unknown 04/05/2025 12:18 AM EDT 04/05/2025 12:37 AM EDT Una Perla LokaliteD LAB BLOOD ORDERABLES Final R esult [facility]
[address] [place] [address], * MRI Tibia Fibula Right With & [...] MD 04/04/2025 11:00 PM EDT Workstation ID: [id number] Narrative 04/04/2025 11:00 PM EDT MRI TIBIA [...] MD 04/04/2025 11:00 PM EDT Workstation ID: [id number] Leonora Shepherd MD IMG MRI ORDERABLES Final Resu lt * POC Creatinine (04/04/2025 2:49 PM EDT) Pathologist [facility] Creatinine 1.10 0.60 - 1.30 mg/dL 04/07/2025 7:14 PM EDT [facility] Comment:Serial Number: [id number]: [id number] Venous Blood 04/04/2025 2:49 PM EDT 04/07/2025 7:14 PM EDT Jason Álvarez DO POINT OF CARE TEST ORDERABLES Fi nal Result [facility]
[address] [place] [address], * (ABNORMAL) CBC Auto Differential (04/04/2025 2:47 PM EDT) WBC 12.72(H) 3.40 - 10.80 10*3/mm3 04/04/2025 2:56 PM EDT [facility] RBC 5.64 4.14 - 5.80 10*6/mm3 04/04/2025 2:56 PM EDT [facility] Hemoglobin 15.3 13.0 - 17.7 g/dL 04/04/2025 2:56 PM EDT [facility] Hematocrit 47.9 37.5 - 51.0 % 04/04/2025 2:56 PM EDT [facility] MCV 84.9 79.0 - 97.0 fL 04/04/2025 2:56 PM EDT [facility] MCH 27.1 26.6 - 33.0 pg 04/04/2025 2:56 PM EDT [facility] MCHC 31.9 31.5 - 35.7 g/dL 04/04/2025 2:56 PM EDT [facility] RDW 13.1 12.3 - 15.4 % 04/04/2025 2:56 PM EDT [facility] RDW-SD 40.3 37.0 - 54.0 fl 04/04/2025 2:56 PM EDT [facility] MPV 9.4 6.0 - 12.0 fL 04/04/2025 2:56 PM EDT [facility] Platelets 232 140 - 450 10*3/mm3 04/04/2025 2:56 PM EDT [facility] Neutrophil % 74.9 42.7 - 76.0 % 04/04/2025 2:56 PM EDT [facility] Lymphocyte % 13.1(L) 19.6 - 45.3 % 04/04/2025 2:56 PM EDT [facility] Monocyte % 11.2 5.0 - 12.0 % 04/04/2025 2:56 PM EDT [facility] Eosinophil % 0.4 0.3 - 6.2 % 04/04/2025 2:56 PM EDT [facility] Basophil % 0.2 0.0 - 1.5 % 04/04/2025 2:56 PM EDT [facility] Immature Grans % 0.2 0.0 - 0.5 % 04/04/2025 2:56 PM EDT [facility] Neutrophils, Absolute 9.52(H) 1.70 - 7.00 10*3/mm3 04/04/2025 2:56 PM EDT [facility] Lymphocytes, Absolute 1.66 0.70 - 3.10 10*3/mm3 04/04/2025 2:56 PM EDT [facility] Monocytes, Absolute 1.43(H) 0.10 - 0.90 10*3/mm3 04/04/2025 2:56 PM EDT [facility] Eosinophils, Absolute 0.05 0.00 - 0.40 10*3/mm3 04/04/2025 2:56 PM EDT [facility] Basophils, Absolute 0.03 0.00 - 0.20 10*3/mm3 04/04/2025 2:56 PM EDT [facility] Immature Grans, Absolute 0.03 0.00 - 0.05 10*3/mm3 04/04/2025 2:56 PM EDT [facility] nRBC 0.0 0.0 - 0.2 /100 WBC 04/04/2025 2:56 PM EDT [facility] Blood Venipuncture / Unknown 04/04/2025 2:47 PM EDT 04/04/2025 2:52 PM EDT us Mario Crowley DO LAB BLOOD ORDERABLES Fin al Result [facility]
[address] [place] [address], * (ABNORMAL) C-reactive Protein (04/04/2025 2:47 PM EDT) [facility] C-Reactive Protein 8.57(H) 0.00 - 0.50 mg/dL 04/04/2025 3:26 PM EDT [facility] Blood Venipuncture / Unknown 04/04/2025 2:47 PM EDT 04/04/2025 2:52 PM EDT [facility] Fin al Result Performing Organization Address [facility] Co de Phone Number [facility]
[address] [place] [address], * (ABNORMAL) Sedimentation Rate (04/04/2025 2:47 PM EDT) Pathologist [facility] Sed Rate 51(H) 0 - 15 mm/hr 04/04/2025 3:06 PM EDT [facility] Blood Venipuncture / Unknown 04/04/2025 2:47 PM EDT 04/04/2025 2:52 PM EDT Mario Ortiz [facility] LAB BLOOD ORDERABLES Fin al Result Performing Organization Address [facility] de Phone Number [facility]
[address] [place] [address], * Comprehensive Metabolic Panel (04/04/2025 2:47 PM EDT) [facility] Glucose 90 65 - 99 mg/dL 04/04/2025 3:26 PM EDT [facility] BUN 18.3 6.0 - 20.0 mg/dL 04/04/2025 3:26 PM EDT [facility] Creatinine 0.94 0.76 - 1.27 mg/dL 04/04/2025 3:26 PM EDT [facility] Sodium 136 136 - 145 mmol/L 04/04/2025 3:26 PM EDT [facility] Potassium 3.8 3.5 - 5.2 mmol/L 04/04/2025 3:26 PM EDT [facility] Chloride 100 98 - 107 mmol/L 04/04/2025 3:26 PM EDT [facility] CO2 25.3 22.0 - 29.0 mmol/L 04/04/2025 3:[facility] Calcium 8.6 8.6 - 10.5 mg/dL 04/04/2025 3:26 PM EDT [facility] Total Protein 7.3 6.0 - 8.5 g/dL 04/04/2025 3:26 PM T [facility] Albumin 4.1 3.5 - 5.2 g/dL 04/04/2025 3:26 PM EDT [facility] ALT (SGPT) 26 1 - 41 U/L 04/04/2025 3:26 PM EDT [facility] AST (SGOT) 25 1 - 40 U/L 04/04/2025 3:26 PM EDT [facility] Alkaline Phosphatase 106 39 - 117 U/L 04/04/2025 3:26 PM T [facility] Total Bilirubin 1.0 0.0 - 1.2 mg/dL 04/04/2025 3:26 PM EDT [facility] Globulin 3.2 gm/dL 04/04/2025 3:26 PM T [facility] Comment:Calculated Result A/G Ratio 1.3 g/dL 04/04/2025 3:26 PM [facility] BUN/Creatinine Ratio 19.5 7.0 - 25.0 04/04/2025 3:26 PM [facility] Anion Gap 10.7 5.0 - 15.0 mmol/L 04/04/2025 3:26 PM T [facility] eGFR 102.5 >60.0 mL/min/1.7 3 04/04/2025 3:26 PM T [facility] Blood Venipuncture / Unknown 04/04/2025 2:47 PM EDT 04/04/2025 2:52 PM EDT [facility] - 04/04/2025 3:26 PM EDT GFR [...] DO LAB BLOOD ORDERABLES Fin al Result [facility]
[address] [id number], documented in this encounter Visit Diagnoses Diagnosis [...] Hours, First dose (after last reorder) on [place] 04/06/25 at 1000, For 10 days, Caution: [...] 04/05/2025 3:33 PM EDT 2,000 Units heparin 99135 units/250 mL (100 units/mL) in 0.45 % [...] given) 0837 (Given - Provider: Amber Salazar, INVISIBLE [employer]ES ORTHODONTIST)2006 (Given - Provider: Loree Reese RRT)2129 (Canceled Entry - Provider: Loree Hugh, INVISIBLE [employer]ACES ORTHODONTIST) 1037 (Given - Provider: Leonora Chen, KELL) [...] Continuous Medication Order 04/09/2025 04/10/2025 04/11/2025 heparin [id number] units/250 mL (100 units/mL) in 0.45 % [...] documented as of this encounter 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
--- OUTSIDE RECORDS SUMMARY | 2025-04-07 18:00 | XMS_ITS | Encounter Summary ---
[facility] Address [address] [place] [address] Care Team Providers Care Network Systems Consultant Name Role Phone Provider, No Known Primary Care Provider Unavail able Reason for Visit * Reason Comments Leg Swelling * Auth/Cert Specialty Diagnoses / Procedures Referred By Contac t Referred To Contact Diagnoses Right BKA infection Referral ID Status Reason Start Date Expiration Date Visits Re quested Visits Authorized [id number] 1 1 Encounter Details Date Type Department Care Team (Late st Contact Info) Description 04/07/2025 6:00 PM EDT - 04/07/2025 6:52 PM EDT Surgery [facility] [address] [place] [address] Sushil Dean Jr., MD [address] [place] [address] [address] [id number] LEG DEBRIDEMENT, IRRIGATION Social History Tobacco Use Types Packs/Day Years Used Date Smoking Tobacco: Never Smokeless Tobacco: Never Tobacco Cessation:Counseling Given: Not Answered Alcohol Use Standard Drinks/Week Comments Not Currently 0 (1 standard drink = 0.6 oz pur e alcohol) [facility] Utilities Answer Date Recorded In the past 12 months has [employer] electric, gas, oil, or water company threatened [...] or training? Not on file Preferred Language Bruneian 04/07/2025 Sex and Gender Information Value Date [...] 2:25 PM EDT Cherri Grimm RN * [place] Suicide Severity Rating Scale (Screener/Recent Self-Report) Question [...] from the original note were not included. [facility] Medicine Services DISCHARGE SUMMARY Patient Name: [...] Date/Time Wound Culture - Swab, Leg, Right [[id number]] (Abnormal) (Susceptibility) Collected: 04/07/252106 Lab Status: Final [...] Units Date/Time FL C Arm During Surgery [[id number]] Resulted: 04/07/252137 Updated: 04/07/252137 Narrative: This procedure was auto-finalized with no dictation required. MRI Tibia Fibula Right With & Without Contrast [[id number]] Collected: 04/07/25 0938 Updated: 04/07/25 1001 Narrative: [...] Buenrostro 04/07/2025 9:58 AM EDT Workstation ID: [id number] MRI Tibia Fibula Right With & Without Contrast [[id number]] Collected: 04/04/252256 Updated: 04/04/252302 Narrative: MRI TIBIA [...] represent a small area of phlegmonous change ([id number] image 10) measuring approximately 1.6 cm which [...] MD 04/04/2025 11:00 PM EDT Workstation ID: [id number] Pending Labs Order Current Status Fungus Culture [...] Male) Date of 1980 Social Security Number [id number] [place] [address] [place] [address] Taoism Unknown Marital Status Unknown Admission Date 04/04/2025 Admission Type Emergency Admitting Provider Jadyn Richardson DO Attending Provider Jadyn Richardson DO Department, Room/Bed [facility] 5G, S565/1 Discharge Date Discharge Disposition Discharge Destination Attending Provider: Jadyn Richardson DO Allergies: Ceftin [Cefuroxime], Keflex [Cephalexin], Latex Isolation: None Infection: MRSA (05/11/23) Code Status: CPR Ht: 180.3 cm (71 ) Wt: 134 kg (295 lb) Admission Cmt: None 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 Insurance as of 04/04/2025 Primary Coverage Payor Plan Insurance Group Employer/Plan Group [place] [id number] Payor Plan Address Payor Plan Phone Number Payor Plan Fax Number Effective Dates [employer] [address] [address] 08/10/2023 - None Entered [facility] [address] Subscriber Name Subscriber Date Member ID WON DENNIS 1980 [id number] Emergency Contacts Guidance Adviser (Rel.) Home Phone Work Phone Mobile Phone Avril Dennis (Spouse) -- -- [phone] Robert Hackett (Relative) -- -- [phone] [facility] 5G [address] [facility] [address] Patient: ROOM: [facility] Won Dennis [address] [facility] 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 Outpatient intravenous antibiotic therapy: Daptomycin 800 mg IV daily to be supplied by [facility] 2. Home health to perform [...] INFECTIOUS DISEASE Progress Note Won Dennis 1980 [id number] Date of Consult: 04/10/2025 Admission Date: 04/04/2025 [...] which prompted him to seek treatment at [facility]. He is known to Dr. [...] Jr., MD, 20 mg at 04/09/25906 heparin 01478 units/250 mL (100 units/mL) in 0.45 % [...] Units Date/Time FL C Arm During Surgery [[id number]] Resulted: 04/07/252137 Updated: 04/07/252137 Narrative: This procedure was auto-finalized with no dictation required. MRI Tibia Fibula Right With & Without Contrast [[id number]] Collected: 04/07/2538 Updated: 04/07/25 1001 Narrative: MRI [...] Buenrostro 04/07/2025 9:58 AM EDT Workstation ID: [id number] Impression: Recurrent Right BKA stump abscess/cellulitis- this [...] discussed his disposition with the pharmacist at [facility] today. I will sign off Outpatient orders: 1. Outpatient intravenous antibiotic therapy: Daptomycin 800 mg IV daily to be supplied by [facility] 2. Home health to perform [...] 04/10/251323 Creation Time: 04/10/251323 Signed Expand All [facility] Medicine Services PROGRESS NOTE Patient Name: [...] Date/Time Wound Culture - Swab, Leg, Right [[id number]] (Abnormal) (Susceptibility) Collected: 04/07/252106 Lab Status: Final [...] Row Name 04/06/25 1143 Sit-Stand Transfer Sit-Stand [place] (Transfers) modified independence - Comment, (Sit-Stand Transfer) Pt stood from recliner. Not holding onto walker, pt able to pull his pants up while balancing on his one leg. -LM Row Name 04/06/25 1143 Gait/Stairs (Locomotion) [place] Level (Gait) modified independence - Distance in [...] Motion bilateral lower extremity ROM WFL -LM [facility] Name 04/06/25 1145 Strength Comprehensive (MMT) General Manual Muscle Testing (MMT) Assessment no strength deficits identified BLEs -LM [facility] Name 04/06/25 1145 Balance Balance Assessment [...] Therapist Goals/Plan No documentation. Clinical Impression [facility] 04/06/25 1146 Pain Pretreatment Pain Rating 0/10 - no pain -LM Posttreatment Pain Rating 0/10 - no pain -LM [facility] 04/06/25 1146 Plan of Care Review Plan of Care Reviewed With patient -LM Outcome Evaluation PT evaluation completed. Pt demonstrated independence with all mobility including ambulating 100 feet using rw - no unsteadiness noted. Pt reports he feels at baseline and doesn't think he needs skilled PT while here. Recommend home at d/c. PT signing off. -LM [facility] Name 04/06/25 1146 Therapy Assessment/Plan (PT) Criteria for Skilled Interventions Met (PT) no;no problems identified which require skilled intervention -LM Therapy Frequency (PT) evaluation only -LM Predicted Duration of Therapy Intervention (PT) Eval Only -LM [facility] Name 04/06/25 1146 Vital Signs Pretreatment Heart Rate (beats/min) 86 -LM Posttreatment Heart Rate (beats/min) 96 -LM Pre SpO2 (%) 95 -LM O2 Delivery Pre Treatment room air -LM Post SpO2 (%) 96 -LM O2 Delivery Post Treatment room air -LM Pre Patient Position Sitting -LM Post Patient Position Sitting -LM [facility] Name 04/06/25 1146 Positioning and Restraints [...] Nurse Physical Therapy Education Title: PT OT FUNDRAISER Therapies (Done) Topic: Physical Therapy (Done) Point: Mobility training (Done) Learning Progress Summary Patient Acceptance, E, VU,DU by at 04/06/2025 1147 Point: Precautions (Done) Learning Progress Summary Patient Acceptance, E, VU,DU by at 04/06/2025 1147 User Cabrera Initials Effective Dates Name Provider Type [facility] 01/24/25 - Susan Cavazos, PT Physical [...] Description Service Date Service Provider Modifiers Qty [id number] PT EVAL LOW COMPLEXITY 3 04/06/2025 Susan [...] from the original note were not included. [facility] Medicine Services PROGRESS NOTE Patient Name: [...] Date/Time Wound Culture - Swab, Leg, Right [[id number]] (Abnormal) (Susceptibility) Collected: 04/07/252106 Lab Status: Final [...] INFECTIOUS DISEASE Progress Note Won Dennis 1980 [id number] Date of Consult: 04/10/2025 Admission Date: 04/04/2025 [...] which prompted him to seek treatment at [facility]. He is known to Dr. [...] IRRIGATION; Surgeon: Sushil Dean Jr., MD; Location: [facility]; Service: Orthopedics; Laterality: Right; PLACEMENT OF [...] Jr., MD, 20 mg at 04/09/25906 heparin 12464 units/250 mL (100 units/mL) in 0.45 % NaCl infusion, 18 Units/kg/hr, Intravenous, Titrated, Una Perla, PharmD, Last Rate: 24.1 mL/hr at 04/10/25 0313, 18 Units/kg/hr at 04/10/25 0313 hydroCHLOROthiazide tablet 12.5 mg, 12.5 mg, Oral, Daily, Sushil eDan Jr., MD, 12.5 mg at 04/09/25 0906 [...] Units Date/Time FL C Arm During Surgery [[id number]] Resulted: 04/07/252137 Updated: 04/07/252137 Narrative: This procedure was auto-finalized with no dictation required. MRI Tibia Fibula Right With & Without Contrast [[id number]] Collected: 04/07/25 0938 Updated: 04/07/25 1001 Narrative: [...] Chitra 04/07/2025 9:58 AM EDT Workstation ID: [id number] Impression: Recurrent Right BKA stump abscess/cellulitis- this [...] discussed his disposition with the pharmacist at [facility] today. I will sign off Outpatient orders: 1. Outpatient intravenous antibiotic therapy: Daptomycin 800 mg IV daily to be supplied by [facility] 2. Home health to perform [...] 07:38 EDT * Larisa Hamilton, [facility] - 04/10/2025 7:17 AM EDT Pharmacy [...] 0500 0.30 11 -- -- 11 1200 [facility] 04/05 1215 0.17 11 1999 [...] from the original note were not included. [facility] Medicine Services PROGRESS NOTE Patient Name: [...] Date/Time Wound Culture - Swab, Leg, Right [[id number]] (Abnormal) Collected: 04/07/252106 Lab Status: Preliminary result [...] Jason Álvarez DO 04/09/25 * Larisa Hamilton, [facility] - 04/09/2025 11:36 AM EDT Pharmacy [...] 0500 0.30 11 -- -- 11 1200 [facility] 04/05 1215 0.17 11 1999 [...] INFECTIOUS DISEASE Progress Note Won Dennis 1980 [id number] Date of Consult: 04/09/2025 Admission Date: 04/04/2025 [...] which prompted him to seek treatment at [facility]. He is known to Dr. [...] IRRIGATION; Surgeon: Sushil Dean Jr., MD; Location: [facility]; Service: Orthopedics; Laterality: Right; PLACEMENT OF WOUND VAC Right 04/07/2025 Procedure: WOUND VACUUM ASSISTED CLOSURE; Surgeon: Sushil Dean Jr., MD; Location: [facility]; Service: Orthopedics; Laterality: Right; History reviewed. No [...] MD, 20 mg at 04/08/25 0800 heparin 38517 units/250 mL (100 units/mL) in 0.45 % [...] Units Date/Time FL C Arm During Surgery [[id number]] Resulted: 04/07/252137 Updated: 04/07/252137 Narrative: This procedure was auto-finalized with no dictation required. MRI Tibia Fibula Right With & Without Contrast [[id number]] Collected: 04/07/25937 Updated: 04/07/25 1001 Narrative: MRI [...] Chitra 04/07/2025 9:58 AM EDT Workstation ID: [id number] Impression: Recurrent Right BKA stump abscess/cellulitis- this [...] mg IV daily to be supplied by [facility] 2. Home health to perform [...] from the original note were not included. [facility] Medicine Services PROGRESS NOTE Patient Name: [...] Buenrostro 04/07/2025 9:58 AM EDT Workstation ID: [id number] I have personally reviewed the therapy plans: [...] Jason DO Preeti 04/08/25 * Larisa Hamilton, [facility] - 04/08/2025 11:48 AM EDT Pharmacy [...] INFECTIOUS DISEASE Progress Note Won Dennis 1980 [id number] Date of Consult: 04/08/2025 Admission Date: 04/04/2025 [...] which prompted him to seek treatment at [facility]. He is known to Dr. [...] IRRIGATION; Surgeon: Sushil Dean Jr., MD; Location: [facility] OR; Service: Orthopedics; Laterality: Right; [...] Jr., MD, 20 mg at 04/07/25950 heparin 13599 units/250 mL (100 units/mL) in 0.45 % [...] Units Date/Time FL C Arm During Surgery [[id number]] Resulted: 04/07/252137 Updated: 04/07/252137 Narrative: This procedure was auto-finalized with no dictation required. MRI Tibia Fibula Right With & Without Contrast [[id number]] Collected: 04/07/25 0938 Updated: 04/07/25 1001 Narrative: [...] Buenrostro 04/07/2025 9:58 AM EDT Workstation ID: [id number] Impression: Right BKA stump cellulitis- s/p BKA with multiple surgical interventions with Known MRSA 05/09/2025. (Treated by ID in [place] Dr. Harris). Dr. Torres treated him with [...] from the original note were not included. [facility] Medicine Services PROGRESS NOTE Patient Name: [...] Buenrostro 04/07/2025 9:58 AM EDT Workstation ID: [id number] I have personally reviewed the therapy plans: [...] 18 Units/kg/hr, Last Rate: 18 Units/kg/hr (04/07/25 4998) Pharmacy to Dose Heparin, PRN Meds:. acetaminophen [...] DO 04/07/25 * Larisa Hamilton [facility] - 04/07/2025 11:56 AM EDT Pharmacy [...] INFECTIOUS DISEASE Progress Note Won Dennis 1980 [id number] Date of Consult: 04/07/2025 Admission Date: 04/04/2025 [...] which prompted him to seek treatment at [facility]. He is known to Dr. [...] Application, 1 Application, Topical, Q12H, Ayah Valentin, DOCUMENTATION BILLING CLERK, 1 Application at 04/06/252101 DAPTOmycin (CUBICIN) 800 [...] MD, 20 mg at 04/06/25 0900 heparin 41491 units/250 mL (100 units/mL) in 0.45 % NaCl infusion, 18 Units/kg/hr, Intravenous, Titrated, Cherri Beatty, [facility], Last Rate: 24.1 mL/hr at 04/07/25217, [...] With & Without Contrast - In process [[id number]] Resulted: 04/07/25828 Updated: 04/07/25828 This result has not been signed. Information might be incomplete. MRI Tibia Fibula Right With & Without Contrast [[id number]] Collected: 04/04/252256 Updated: 04/04/252302 Narrative: MRI TIBIA [...] represent a small area of phlegmonous change ([id number] image 10) measuring approximately 1.6 cm which [...] MD 04/04/2025 11:00 PM EDT Workstation ID: [id number] Impression: Right BKA stump cellulitis- s/p BKA with multiple surgical interventions with Known MRSA 05/09/2025. (Treated by ID in [place] Dr. Harris). Dr. Torres treated him with [...] mg Daily 04/05/2025 -- Route: Oral heparin 56275 units/250 mL (100 units/mL) in 0.45 % [...] EDT * Cherri Beatty [facility] - 04/06/2025 1:47 PM EDT Pharmacy [...] 0500 0.30 11 -- -- 11 1200 [facility] 04/05 1215 0.17 11 1999 +3 14 2100 DW RN Pump checked 04/05 2043 0.38 14 -- -- 14 0300 [facility] 04/06 0530 0.25 14 -- +2 16 1200 [address] Mary 04/06 1236 0.24 16 -- +2 18 1999 LU Beatty [facility] 04/06/2025 13:48 EDT * Jason Álvarez DO - 04/06/2025 12:47 PM EDT Images from the original note were not included. [facility] Medicine Services PROGRESS NOTE Patient Name: [...] MD 04/04/2025 11:00 PM EDT Workstation ID: [id number] I have personally reviewed the therapy plans: [...] mg Daily 04/05/2025 -- Route: Oral heparin 11044 units/250 mL (100 units/mL) in 0.45 % [...] INFECTIOUS DISEASE follow up. Won Dennis 1980 [id number] Date of Consult: 04/06/2025 Admission Date: 04/04/2025 [...] which prompted him to seek treatment at [facility]. He is known to Dr. [...] MD, 20 mg at 04/06/25 0900 heparin 30796 units/250 mL (100 units/mL) in 0.45 % NaCl infusion, 18 Units/kg/hr, Intravenous, Titrated, Cherri Beatty [facility], Last Rate: 24.1 mL/hr at 04/06/25 [...] to dose vancomycin Status: Discontinued Ordering Provider: Lenoora Shepherd MD Not Applicable Continuous PRN 04/04/25200404/05/25120604/04/251942 [...] Tibia Fibula Right With & Without Contrast [[id number]] Collected: 04/04/252256 Updated: 04/04/252302 Narrative: MRI TIBIA [...] represent a small area of phlegmonous change ([id number] image 10) measuring approximately 1.6 cm which [...] MD 04/04/2025 11:00 PM EDT Workstation ID: [id number] Impression: Right BKA stump cellulitis- s/p BKA with multiple surgical interventions with Known MRSA 05/09/2025. (Treated by ID in [place] Dr. Harris). Dr. Torres treated him with [...] 16:00 EDT * Cherri Beatty, [facility] - 04/05/2025 3:01 PM EDT Pharmacy [...] from the original note were not included. [facility] Medicine Services PROGRESS NOTE Patient Name: [...] MD 04/04/2025 11:00 PM EDT Workstation ID: [id number] I have personally reviewed the therapy plans: [...] from the original note were not included. [facility] Medicine Services HISTORY AND PHYSICAL Patient [...] MD 04/04/2025 11:00 PM EDT Workstation ID: [id number] Assessment & Plan Assessment & Plan Won [...] PICC placed by Rhoda Bonner RN [facility], tip verified by 3CG see LDA. 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 He [...] was evaluated in the emergency department in [place], was discharged with instructions for follow-up. He [...] tablet by mouth Daily. 04/03/2025 Morning Lactobacillus-Inulin ([facility] SummuS Render) capsule Take 200 mg by mouth Daily. [...] MD 04/04/2025 11:00 PM EDT Workstation ID: [id number] Assessment: Right BKA infection 44-year-old male with [...] DISEASE CONSULT/INITIAL HOSPITAL VISIT Won Dennis 1980 [id number] Date of Consult: 04/05/2025 Admission Date: 04/04/2025 [...] which prompted him to seek treatment at [facility]. He is known to Dr. [...] MD, 20 mg at 04/05/25 0916 heparin 56056 units/250 mL (100 units/mL) in 0.45 % [...] Tibia Fibula Right With & Without Contrast [[id number]] Collected: 04/04/252256 Updated: 04/04/252302 Narrative: MRI TIBIA [...] represent a small area of phlegmonous change ([id number] image 10) measuring approximately 1.6 cm which [...] MD 04/04/2025 11:00 PM EDT Workstation ID: [id number] Impression: Right BKA stump cellulitis- s/p BKA with multiple surgical interventions with Known MRSA 05/09/2025. (Treated by ID in [place] Dr. Harris). Dr. Torres treated him with [...] infection POSTOP DIAGNOSIS: Same. PROCEDURE: Right Right 11396: Secondary closure below-knee amputation SURGEON: Sushil eDan MD OPERATIVE TEAM: Dextrine Mixer: Susi Grullon RN Scrub Person: Mary Paredes Scrub Person Extra: Hortencia Toribio Other: Katt Gotti RN; Charis Neville RN ANESTHETIST: Anesthesiologist: Ulises Hoffman MD RUBBER WASHER: Stan Casillas CRNA Student Nurse Crisis Intervention Counselor: Karol Albert SRNA ANESTHESIA: Choice ESTIMATED BLOOD [...] CULTURE (Canceled) Sushil Dean Jr., MD 04/08/25 1225 Description: RIGHT LEG DEEP WOUND FOR CULTURE [...] PM EDT [facility] [address] [facility] 250 OPERATIVE REPORT PATIENT NAME: Won Dennis DATE OF : 1980 PREOP DIAGNOSIS: Right Right below knee amputation stump infection POSTOP DIAGNOSIS: Same. PROCEDURE: Right Right 63908: Incision and drainage of surgical site infection 99916: Debridement of skin, subcutaneous tissue, muscle 38831: Wound vacuum-assisted closure SURGEON: Sushil Dean MD OPERATIVE TEAM: Dextrine Mixer: Anum Sanchez RN Scrub Person: Hortencia Toribio; Gerald Ivey COOK SHORT ORDER: Anesthesiologist: Luci Alonso DO ANESTHESIA: General ESTIMATED [...] ago swellling of the area. seen at [facility] yesterday for CT and US, [...] this chart in the absence of a video operator. No orders to display RADIOLOGY: [x] [...] is discharging home with outpatient infusion at [facility]. He has an appointment with [facility] at 8:00 am tomorrow. They will do PICC line dressing changes. CM has spoke with Dena at [facility] today multiple times to get [...] to get IV ABX at home with [facility]; however, Medicaid lapsed on 04/08. CM was unaware until this morning that Medicaid has lapsed. Patient explained that he has Medicare A and B. CM spoke with KELLEE and given themhis Medicare number [id number], she sent it to Admission. CM spoke with Kerri, with [facility], and explained that he had Medicare A and B. However, it will not cover home infusion. It will be $64.00 a day out of packet. Patients can go to the Infusion center at [facility], and it will cover the cost as an outpatient. He will need to go there every day for infusion. They will be able to do the patients' PICC line dressing changes and lab work. CM called [facility] infusion center they can accept patient and start him. He is known for their facility. The Facility will need to run it through his insurance first. CM faxed the orders over to [facility] at [phone]. CM will follow up with them tomorrow at [facility] to make sure they received the orders. [...] with patient at bedside today. Wheelchair from [employer] is at bedside. Patient getting PICC line [...] note were not included. Discharge Planning Assessment [facility] Patient Name: Won Dennis Today's Date: [...] family Patient/Family Anticipated Services at Transition case workerlearning program manager Anticipated family or friend will provide Discharge Needs Assessment Equipment Currently Used at Home glucometer;shower chair;pulse ox;bp cuff;prosthesis;crutches Equipment Needed After Discharge none Discharge Plan Row Name 04/07/25 1144 Plan Plan Home Patient/Family in Agreement with Plan yes Plan Comments CM spoke with patient at bedside today. Patient lives with and his 5 kids in [place]. 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 He has walker, cane, shower chair, and crutches. He requested a wheelchair for home. CM will order wheelchair through [facility]. He is not current with home health services. PCP is Dr. Jordan. Insurance is [employer] [place]. Patient discharge plan is home with [facility] transport. CM will follow for any discharge needs. Final Discharge Disposition Code 01 - home or self-care Continued Care and Services - Admitted Since 04/04/2025 No active coordination exists. Demographic Summary Row Name 04/07/25 1143 General Information Arrived From hospital Preferred Language Bruneian Functional Status Row Name 04/07/25 1143 Functional [...] CBC Auto Differential (04/11/2025 3:40 AM EDT) [facility] WBC 7.87 3.40 - 10.80 10*3/mm3 04/11/2025 4:02 AM EDT [facility] RBC 4.70 4.14 - 5.80 10*6/mm3 04/11/2025 4:02 AM EDT [facility] Hemoglobin 12.8(L) 13.0 - 17.7 g/dL 04/11/2025 4:02 AM EDT [facility] Hematocrit 40.5 37.5 - 51.0 % 04/11/2025 4:02 AM EDT [facility] MCV 86.2 79.0 - 97.0 fL 04/11/2025 4:02 AM EDT [facility] MCH 27.2 26.6 - 33.0 pg 04/11/2025 4:02 AM EDT [facility] MCHC 31.6 31.5 - 35.7 g/dL 04/11/2025 4:02 AM EDT [facility] RDW 12.9 12.3 - 15.4 % 04/11/2025 4:02 AM EDT [facility] RDW-SD 40.5 37.0 - 54.0 [place] 04/11/2025 4:02 AM EDT [facility] MPV 9.2 6.0 - 12.0 fL 04/11/2025 4:02 AM EDT [facility] Platelets 267 140 - 450 10*3/mm3 04/11/2025 4:02 AM [facility] Neutrophil % 59.5 42.7 - 76.0 % 04/11/2025 4:02 AM [facility] Lymphocyte % 26.3 19.6 - 45.3 % 04/11/2025 4:02 AM [facility] Monocyte % 9.3 5.0 - 12.0 % 04/11/2025 4:02 AM [facility] Eosinophil % 4.1 0.3 - 6.2 % 04/11/2025 4:02 AM [facility] Basophil % 0.4 0.0 - 1.5 % 04/11/2025 4:02 AM [facility] Immature Grans % 0.4 0.0 - 0.5 % 04/11/2025 4:02 AM [facility] Neutrophils, Absolute 4.69 1.70 - 7.00 10*3/mm3 04/11/2025 4:02 AM [facility] Lymphocytes, Absolute 2.07 0.70 - 3.10 10*3/mm3 04/11/2025 4:02 AM [facility] Monocytes, Absolute 0.73 0.10 - 0.90 10*3/mm3 04/11/2025 4:02 AM [facility] Eosinophils, Absolute 0.32 0.00 - 0.40 10*3/mm3 04/11/2025 4:02 AM [facility] Basophils, Absolute 0.03 0.00 - 0.20 10*3/mm3 04/11/2025 4:02 AM [facility] Immature Grans, Absolute 0.03 0.00 - 0.05 10*3/mm3 04/11/2025 4:02 AM [facility] nRBC 0.0 0.0 - 0.2 /100 WBC 04/11/2025 4:02 AM [facility] Blood Venipuncture / Unknown 04/11/2025 3:40 AM EDT 04/11/2025 3:59 AM EDT us Sushil Dean Jr., MD LAB BLOOD ORDERABLES Fi nal Result [facility]
[address] [place] [address], * (ABNORMAL) Comprehensive Metabolic Panel (04/11/2025 3:40 AM EDT) Pathologist [facility] Glucose 108(H) 65 - 99 mg/dL 04/11/2025 4:19 AM EDT [facility] BUN 12.5 6.0 - 20.0 mg/dL 04/11/2025 4:19 AM EDT [facility] Creatinine 0.68(L) 0.76 - 1.27 mg/dL 04/11/2025 4:19 AM EDT [facility] Sodium 140 136 - 145 mmol/L 04/11/2025 4:19 AM EDT [facility] Potassium 3.8 3.5 - 5.2 mmol/L 04/11/2025 4:19 AM EDT [facility] Chloride 105 98 - 107 mmol/L 04/11/2025 4:19 AM EDT [facility] CO2 28.2 22.0 - 29.0 mmol/L 04/11/2025 4:19 AM EDT [facility] Calcium 8.2(L) 8.6 - 10.5 mg/dL 04/11/2025 4:19 AM EDT [facility] Total Protein 6.1 6.0 - 8.5 g/dL 04/11/2025 4:19 AM EDT [facility] Albumin 3.1(L) 3.5 - 5.2 g/dL 04/11/2025 4:19 AM EDT [facility] ALT (SGPT) 52(H) 1 - 41 U/L 04/11/2025 4:19 AM EDT [facility] AST (SGOT) 40 1 - 40 U/L 04/11/2025 4:19 AM EDT [facility] Alkaline Phosphatase 99 39 - 117 U/L 04/11/2025 4:19 AM EDT [facility] Total Bilirubin 0.2 0.0 - 1.2 mg/dL 04/11/2025 4:19 AM EDT [facility] Globulin 3.0 gm/dL 04/11/2025 4:19 AM EDT [facility] Comment:Calculated Result A/G Ratio 1.0 g/dL 04/11/2025 4:19 AM EDT [facility] BUN/Creatinine Ratio 18.4 7.0 - 25.0 04/11/2025 4:19 AM EDT [facility] Anion Gap 6.8 5.0 - 15.0 mmol/L 04/11/2025 4:19 AM EDT [facility] eGFR 117.5 >60.0 mL/min/1.7 3 04/11/2025 4:19 AM EDT [facility] Blood Venipuncture / Unknown 04/11/2025 3:40 AM EDT 04/11/2025 3:56 AM EDT [facility] - 04/11/2025 4:19 AM EDT [...] Hill APRN LAB BLOOD ORDERABLES Final Result [facility]
[address] [place] [address], * (ABNORMAL) CBC Auto Differential (04/10/2025 3:46 AM EDT) [facility] WBC 9.60 3.40 - 10.80 10*3/mm3 04/10/2025 3:56 AM EDT [facility] RBC 4.67 4.14 - 5.80 10*6/mm3 04/10/2025 3:56 AM EDT [facility] Hemoglobin 12.9(L) 13.0 - 17.7 g/dL 04/10/2025 3:56 AM EDT [facility] Hematocrit 40.1 37.5 - 51.0 % 04/10/2025 3:56 AM EDT [facility] MCV 85.9 79.0 - 97.0 fL 04/10/2025 3:56 AM EDT [facility] MCH 27.6 26.6 - 33.0 pg 04/10/2025 3:56 AM EDT [facility] MCHC 32.2 31.5 - 35.7 g/dL 04/10/2025 3:56 AM EDT [facility] RDW 12.9 12.3 - 15.4 % 04/10/2025 3:56 AM EDT [facility] RDW-SD 40.5 37.0 - 54.0 fl 04/10/2025 3:56 AM EDT [facility] MPV 9.5 6.0 - 12.0 fL 04/10/2025 3:56 AM EDT [facility] Platelets 227 140 - 450 10*3/mm3 04/10/2025 3:56 AM EDT [facility] Neutrophil % 59.1 42.7 - 76.0 % 04/10/2025 3:56 AM EDT [facility] Lymphocyte % 29.0 19.6 - 45.3 % 04/10/2025 3:56 AM EDT [facility] Monocyte % 8.1 5.0 - 12.0 % 04/10/2025 3:56 AM EDT [facility] Eosinophil % 3.2 0.3 - 6.2 % 04/10/2025 3:56 AM EDT [facility] Basophil % 0.4 0.0 - 1.5 % 04/10/2025 3:56 AM EDT [facility] Immature Grans % 0.2 0.0 - 0.5 % 04/10/2025 3:56 AM EDT [facility] Neutrophils, Absolute 5.67 1.70 - 7.00 10*3/mm3 04/10/2025 3:56 AM EDT [facility] Lymphocytes, Absolute 2.78 0.70 - 3.10 10*3/mm3 04/10/2025 3:56 AM EDT [facility] Monocytes, Absolute 0.78 0.10 - 0.90 10*3/mm3 04/10/2025 3:56 AM EDT [facility] Eosinophils, Absolute 0.31 0.00 - 0.40 10*3/mm3 04/10/2025 3:56 AM EDT [facility] Basophils, Absolute 0.04 0.00 - 0.20 10*3/mm3 04/10/2025 3:56 AM EDT [facility] Immature Grans, Absolute 0.02 0.00 - 0.05 10*3/mm3 04/10/2025 3:56 AM EDT [facility] nRBC 0.0 0.0 - 0.2 /100 WBC 04/10/2025 3:56 AM EDT [facility] Blood Venipuncture / Unknown 04/10/2025 3:46 AM EDT 04/10/2025 3:53 AM EDT us Jason Álvarez DO LAB BLOOD ORDERABLES Final Resul t [facility]
[address] [place] [address], * (ABNORMAL) Basic Metabolic Panel (04/10/2025 3:46 AM EDT) Glucose 125(H) 65 - 99 mg/dL 04/10/2025 4:20 AM [facility] BUN 15.9 6.0 - 20.0 mg/dL 04/10/2025 4:20 AM [facility] Creatinine 0.77 0.76 - 1.27 mg/dL 04/10/2025 4:20 AM [facility] Sodium 137 136 - 145 mmol/L 04/10/2025 4:20 AM [facility] Potassium 3.9 3.5 - 5.2 mmol/L 04/10/2025 4:20 AM [facility] Chloride 102 98 - 107 mmol/L 04/10/2025 4:20 AM [facility] CO2 26.9 22.0 - 29.0 mmol/L 04/10/2025 4:20 AM [facility] Calcium 7.9(L) 8.6 - 10.5 mg/dL 04/10/2025 4:20 AM [facility] BUN/Creatinine Ratio 20.6 7.0 - 25.0 04/10/2025 4:20 AM [facility] Anion Gap 8.1 5.0 - 15.0 mmol/L 04/10/2025 4:20 AM [facility] eGFR 113.2 >60.0 mL/min/1.7 3 04/10/2025 4:20 AM [facility] Blood Venipuncture / Unknown 04/10/2025 3:46 AM EDT 04/10/2025 3:52 AM [facility] - 04/10/2025 4:20 AM [...] DO LAB BLOOD ORDERABLES Final Resul t [facility]
[address] [place] [address], * Heparin Anti-Xa (04/10/2025 3:46 AM EDT) Heparin Anti-Xa (UFH) 0.35 0.30 - 0.70 IU/ml 04/10/2025 4:23 AM EDT [facility] Blood Venipuncture / Unknown 04/10/2025 3:46 AM EDT 04/10/2025 3:53 AM EDT [facility] LAB BLOOD ORDERABLES Final R esult Performing Organization Address City/[facility]/ZIP Co de Phone Number [facility]
[address] [place] [address], * Heparin Anti-Xa (04/09/2025 10:05 AM EDT) Pathologist [facility] Heparin Anti-Xa (UFH) 0.36 0.30 - 0.70 IU/ml 04/09/2025 11:12 AM EDT [facility] Blood Venipuncture / Unknown 04/09/2025 10:05 AM EDT 04/09/2025 10:47 AM EDT [facility] LAB BLOOD ORDERABLES Final R esult [facility]
[address] [place] [address], * (ABNORMAL) CBC Auto Differential (04/09/2025 4:18 AM EDT) WBC 11.00(H) 3.40 - 10.80 10*3/mm3 04/09/2025 4:50 AM EDT [facility] RBC 4.70 4.14 - 5.80 10*6/mm3 04/09/2025 4:50 AM EDT [facility] Hemoglobin 13.0 13.0 - 17.7 g/dL 04/09/2025 4:50 AM EDT [facility] Hematocrit 40.4 37.5 - 51.0 % 04/09/2025 4:50 AM EDT [facility] MCV 86.0 79.0 - 97.0 fL 04/09/2025 4:50 AM EDT [facility] MCH 27.7 26.6 - 33.0 pg 04/09/2025 4:50 AM EDT [facility] MCHC 32.2 31.5 - 35.7 g/dL 04/09/2025 4:50 [facility] RDW 12.8 12.3 - 15.4 % 04/09/2025 4:50 AM [facility] RDW-SD 39.9 37.0 - 54.0 fl 04/09/2025 4:50 AM [facility] MPV 10.0 6.0 - 12.0 fL 04/09/2025 4:50 AM [facility] Platelets 211 140 - 450 10*3/mm3 04/09/2025 4:50 AM EDT [facility] Neutrophil % 74.8 42.7 - 76.0 % 04/09/2025 4:50 AM EDT [facility] Lymphocyte % 15.4(L) 19.6 - 45.3 % 04/09/2025 4:50 AM EDT [facility] Monocyte % 8.5 5.0 - 12.0 % 04/09/2025 4:50 AM EDT [facility] Eosinophil % 0.6 0.3 - 6.2 % 04/09/2025 4:50 AM EDT [facility] Basophil % 0.4 0.0 - 1.5 % 04/09/2025 4:50 AM EDT [facility] Immature Grans % 0.3 0.0 - 0.5 % 04/09/2025 4:50 AM EDT [facility] Neutrophils, Absolute 8.23(H) 1.70 - 7.00 10*3/mm3 04/09/2025 4:50 AM EDT [facility] Lymphocytes, Absolute 1.69 0.70 - 3.10 10*3/mm3 04/09/2025 4:50 AM EDT [facility] Monocytes, Absolute 0.94(H) 0.10 - 0.90 10*3/mm3 04/09/2025 4:50 AM EDT [facility] Eosinophils, Absolute 0.07 0.00 - 0.40 10*3/mm3 04/09/2025 4:50 AM EDT [facility] Basophils, Absolute 0.04 0.00 - 0.20 10*3/mm3 04/09/2025 4:50 AM EDT [facility] Immature Grans, Absolute 0.03 0.00 - 0.05 10*3/mm3 04/09/2025 4:50 AM EDT [facility] nRBC 0.0 0.0 - 0.2 /100 WBC 04/09/2025 4:50 AM EDT [facility] Blood Venipuncture / Unknown 04/09/2025 4:18 AM EDT 04/09/2025 4:31 AM EDT Sushil Dean Jr., MD LAB BLOOD ORDERABLES nal Result [facility]
[address] [place] [address], * Heparin Anti-Xa (04/09/2025 4:18 AM EDT) Heparin Anti-Xa (UFH) 0.41 0.30 - 0.70 IU/ml 04/09/2025 4:53 AM EDT [facility] Blood Venipuncture / Unknown 04/09/2025 4:18 AM EDT 04/09/2025 4:31 AM EDT Una Minda PharmD LAB BLOOD ORDERABLES Final R esult [facility]
[address] [place] [address], * (ABNORMAL) Basic Metabolic Panel (04/09/2025 4:18 AM EDT) Glucose 147(H) 65 - 99 mg/dL 04/09/2025 5:33 AM EDT [facility] BUN 23.0(H) 6.0 - 20.0 mg/dL 04/09/2025 5:33 AM EDT [facility] Creatinine 1.15 0.76 - 1.27 mg/dL 04/09/2025 5:33 AM EDT [facility] Sodium 135(L) 136 - 145 mmol/L 04/09/2025 5:33 AM EDT [facility] Potassium 4.2 3.5 - 5.2 mmol/L 04/09/2025 5:33 AM EDT [facility] Chloride 100 98 - 107 mmol/L 04/09/2025 5:33 AM EDT [facility] CO2 26.0 22.0 - 29.0 mmol/L 04/09/2025 5:33 AM EDT [facility] Calcium 8.2(L) 8.6 - 10.5 mg/dL 04/09/2025 5:33 AM EDT [facility] BUN/Creatinine Ratio 20.0 7.0 - 25.0 04/09/2025 5:33 AM EDT [facility] Anion Gap 9.0 5.0 - 15.0 mmol/L 04/09/2025 5:33 AM EDT [facility] eGFR 80.5 >60.0 mL/min/1.7 3 04/09/2025 5:33 AM EDT [facility] Blood Venipuncture / Unknown 04/09/2025 4:18 AM EDT 04/09/2025 4:29 AM EDT Narrative [facility] - 04/09/2025 5:33 AM EDT [...] Fi nal Result Performing Organization Address City/[facility] Co de Phone Number [facility]
[address] [place] [address], * Wound Culture - Swab, Leg, Right (04/08/2025 3:40 PM EDT) Wound Culture No growth at 3 days ALIZA 04/11/2025 10:40 AM EDT [facility] Gram Stain Few (2+) WBCs seen 04/11/2025 10:40 AM EDT [facility] Gram Stain No organisms seen 04/11/2025 10:40 AM EDT [facility] Swab Structure of right lower limb / Unknown 04/08/2025 3:40 PM EDT 04/08/2025 8:05 PM EDT Sushil Dean Jr., MD MICROBIOLOGY - GENERAL ORDERABLES Final Result Performing Organization Address City/[facility]/ZIP Co de Phone Number [facility]
[address] [place] [address], [place] [phone] [facility]
[address] [place] [address], * Anaerobic Culture - Swab, Leg, Right (04/08/2025 3:40 PM EDT) Pathologist [facility] Anaerobic Culture No anaerobes isolated at 5 days ALIZA 04/13/2025 7:24 AM EDT [facility] Swab Structure of right lower limb / Unknown 04/08/2025 3:40 PM EDT 04/08/2025 8:05 PM EDT Sushil Dean Jr., MD MICROBIOLOGY - GENERAL ORDERABLES Final Result Performing Organization Address City/[facility] Co de Phone Number [facility]
[address] [place] [address], * Scan Slide (04/08/2025 8:41 AM EDT) Pathologist [facility] RBC Morphology Normal Normal 04/08/2025 11:02 AM EDT [facility] WBC Morphology Normal Normal 04/08/2025 11:02 AM EDT [facility] Platelet Estimate Adequate Normal 04/08/2025 11:02 AM EDT [facility] Clumped Platelets Present None Seen 04/08/2025 11:02 AM EDT [facility] Blood Venipuncture / Unknown 04/08/2025 8:41 AM EDT 04/08/2025 9:10 AM EDT Una LundbergD LAB BLOOD ORDERABLES Final R esult [facility]
[address] [place] [address], [place] [phone] * (ABNORMAL) CBC Auto Differential (04/08/2025 8:41 AM EDT) Pathologist [facility] WBC 10.07 3.40 - 10.80 10*3/mm3 04/08/2025 11:02 AM EDT [facility] RBC 5.01 4.14 - 5.80 10*6/mm3 04/08/2025 11:02 AM [facility] Hemoglobin 14.0 13.0 - 17.7 g/dL 04/08/2025 11:02 AM [facility] Hematocrit 42.7 37.5 - 51.0 % 04/08/2025 11:02 AM [facility] MCV 85.2 79.0 - 97.0 fL 04/08/2025 11:02 AM [facility] MCH 27.9 26.6 - 33.0 pg 04/08/2025 11:02 AM [facility] MCHC 32.8 31.5 - 35.7 g/dL 04/08/2025 11:02 AM [facility] RDW 12.6 12.3 - 15.4 % 04/08/2025 11:02 AM [facility] RDW-SD 38.9 37.0 - 54.0 fl 04/08/2025 11:02 AM [facility] MPV 11.0 6.0 - 12.0 fL 04/08/2025 11:02 AM [facility] Platelets 118(L) 140 - 450 10*3/mm3 04/08/2025 11:02 AM [facility] Neutrophil % 85.1(H) 42.7 - 76.0 % 04/08/2025 11:02 AM [facility] Lymphocyte % 9.3(L) 19.6 - 45.3 % 04/08/2025 11:02 AM [facility] Monocyte % 4.6(L) 5.0 - 12.0 % 04/08/2025 11:02 AM [facility] Eosinophil % 0.3 0.3 - 6.2 % 04/08/2025 11:02 AM [facility] Basophil % 0.2 0.0 - 1.5 % 04/08/2025 11:02 AM [facility] Immature Grans % 0.5 0.0 - 0.5 % 04/08/2025 11:02 AM EDT [facility] Neutrophils, Absolute 8.57(H) 1.70 - 7.00 10*3/mm3 04/08/2025 11:02 AM EDT [facility] Lymphocytes, Absolute 0.94 0.70 - 3.10 10*3/mm3 04/08/2025 11:02 AM EDT [facility] Monocytes, Absolute 0.46 0.10 - 0.90 10*3/mm3 04/08/2025 11:02 AM EDT [facility] Eosinophils, Absolute 0.03 0.00 - 0.40 10*3/mm3 04/08/2025 11:02 AM EDT [facility] Basophils, Absolute 0.02 0.00 - 0.20 10*3/mm3 04/08/2025 11:02 AM EDT [facility] Immature Grans, Absolute 0.05 0.00 - 0.05 10*3/mm3 04/08/2025 11:02 AM EDT [facility] nRBC 0.0 0.0 - 0.2 /100 WBC 04/08/2025 11:02 AM EDT [facility] Blood Venipuncture / Unknown 04/08/2025 8:41 AM EDT 04/08/2025 9:10 AM EDT Una Perla PharmD LAB BLOOD ORDERABLES Final R esult [facility]
[address] [place] [address], * (ABNORMAL) Basic Metabolic Panel (04/08/2025 8:41 AM EDT) Glucose 125(H) 65 - 99 mg/dL 04/08/2025 9:51 AM EDT [facility] BUN 13.2 6.0 - 20.0 mg/dL 04/08/2025 9:51 AM EDT [facility] Creatinine 0.69(L) 0.76 - 1.27 mg/dL 04/08/2025 9:51 AM EDT [facility] Sodium 136 136 - 145 mmol/L 04/08/2025 9:51 AM EDT [facility] Potassium 4.6 3.5 - 5.2 mmol/L 04/08/2025 9:51 AM EDT [facility] Chloride 102 98 - 107 mmol/L 04/08/2025 9:51 AM EDT [facility] CO2 23.5 22.0 - 29.0 mmol/L 04/08/2025 9:51 AM EDT [facility] Calcium 8.4(L) 8.6 - 10.5 mg/dL 04/08/2025 9:51 AM EDT [facility] BUN/Creatinine Ratio 19.1 7.0 - 25.0 04/08/2025 9:51 AM EDT [facility] Anion Gap 10.5 5.0 - 15.0 mmol/L 04/08/2025 9:51 AM EDT [facility] eGFR 117.0 >60.0 mL/min/1.7 3 04/08/2025 9:51 AM EDT [facility] Blood Venipuncture / Unknown 04/08/2025 8:41 AM EDT 04/08/2025 9:09 AM EDT [facility] - 04/08/2025 9:51 AM EDT [...] MD LAB BLOOD ORDERABLES Fi nal Result [facility]
[address] [place] [address], [place] [phone] * Heparin Anti-Xa (04/08/2025 8:41 AM EDT) Heparin Anti-Xa (UFH) 0.33 0.30 - 0.70 IU/ml 04/08/2025 9:40 AM EDT [facility] Blood Venipuncture / Unknown 04/08/2025 8:41 AM EDT 04/08/2025 9:10 AM EDT us Sushil Dean Jr., MD LAB BLOOD ORDERABLES Fi nal Result Performing Organization Address [facility] Co de Phone Number [facility]
[address] [place] [address], * FL C Arm During Surgery (04/07/2025 9:32 PM EDT) Narrative SYSTEMGENERATED, DOCUMENTATION - 04/07/2025 9:38 PM EDT This procedure was auto-finalized with no dictation required. us Sushil Dean Jr., MD IMG FLUOROSCOPY ORDERAB LES Final Result * Wound Culture - Swab, Leg, Right (04/07/2025 9:14 PM EDT) Wound Culture No growth at 3 days AILZA 04/11/2025 10:40 AM EDT [facility] Gram Stain Occasional WBCs seen 04/11/2025 10:40 AM EDT [facility] Gram Stain No organisms seen 04/11/2025 10:40 AM EDT [facility] Swab Structure of right lower limb / Unknown Collection / Unknown 04/07/2025 9:14 PM EDT 04/08/2025 4:36 AM EDT us Sushil Dean Jr., MD MICROBIOLOGY - GENERAL ORDERABLES Final Result Performing Organization Address City/[facility]/ZIP Co de Phone Number [facility]
[address] [place] [address], [facility]
[address] [place] [address], * Anaerobic Culture - Swab, Leg, Right (04/07/2025 9:14 PM EDT) Anaerobic Culture No anaerobes isolated at 5 days ALIZA 04/13/2025 7:21 AM EDT [facility] Swab Structure of right lower limb / Unknown Collection / Unknown 04/07/2025 9:14 PM EDT 04/08/2025 4:36 AM EDT Sushil Dean Jr., MD MICROBIOLOGY - GENERAL ORDERABLES Final Result Performing Organization Address [facility]/ZIP Co de Phone Number [facility]
[address] [place] [address], * Anaerobic Culture - Tissue, Leg (04/07/2025 [...] [facility]
[address] [place] [address], * Tissue / Bone Culture - Tissue, Leg, Right (04/07/2025 9:13 PM EDT) Tissue Culture No growth at 3 days ALIZA 04/11/2025 10:36 AM EDT [facility] Gram Stain Rare (1+) WBCs seen 04/11/2025 10:36 AM EDT [facility] Gram Stain No organisms seen 04/11/2025 10:36 AM EDT [facility] Tissue Structure of right lower limb / Unknown 04/07/2025 9:13 PM EDT 04/08/2025 4:54 AM EDT Sushil Dean Jr., MD MICROBIOLOGY - GENERAL ORDERABLES Final Result [facility]
[address] [place] [address], [place] [phone] [facility]
[address] [place] [address], [place] [phone] * (ABNORMAL) Wound Culture - Swab, Leg, Right (04/07/2025 9:07 PM EDT) Wound Culture Light growth (2+) Staphylococcus aureus, MRSA(A) ALIZA 04/10/2025 10:38 AM EDT [facility] Comment: Methicillin resistant Staphylococcus aureus, Patient may be an isolation risk. Gram Stain Few (2+) WBCs seen 04/10/2025 10:38 AM EDT [facility] Gram Stain No organisms seen 10:38 AM EDT [facility] Swab Structure of right lower [...] GENERAL ORDERABLES Final Result Performing Organization Address [facility] Co de Phone Number [facility]
[address] [place] [address], [facility]
[address] [place] [address], * Anaerobic Culture - Swab, Leg, Right (04/07/2025 9:07 PM EDT) [facility] Anaerobic Culture No anaerobes isolated at 5 days ALIZA 04/13/2025 7:21 AM EDT [facility] Swab Structure of right lower limb / Unknown Collection / Unknown 04/07/2025 9:07 PM EDT 04/08/2025 4:36 AM EDT Sushil Dean Jr., MD MICROBIOLOGY - GENERAL ORDERABLES Final Result Performing Organization Address [facility] Co de Phone Number [facility]
[address] [place] [address], * Heparin Anti-Xa (04/07/2025 9:10 AM EDT) [facility] Heparin Anti-Xa (UFH) 0.30 0.30 - 0.70 IU/ml 04/07/2025 10:12 AM EDT [facility] Blood Venipuncture / Unknown 04/07/2025 9:10 AM EDT 04/07/2025 9:38 AM EDT Una Perla PharmD LAB BLOOD ORDERABLES Final R esult Performing Organization Address [facility] Co de Phone Number [facility]
[address] [place] [address], * (ABNORMAL) CBC Auto Differential (04/07/2025 9:10 AM EDT) [facility] WBC 8.63 3.40 - 10.80 10*3/mm3 04/07/2025 9:50 AM EDT [facility] RBC 5.23 4.14 - 5.80 10*6/mm3 04/07/2025 9:50 AM EDT [facility] Hemoglobin 14.7 13.0 - 17.7 g/dL 04/07/2025 9:50 [facility] Hematocrit 44.8 37.5 - 51.0 % 04/07/2025 9:50 AM EDT [facility] MCV 85.7 79.0 - 97.0 fL 04/07/2025 9:50 AM EDT [facility] MCH 28.1 26.6 - 33.0 pg 04/07/2025 9:50 [facility] MCHC 32.8 31.5 - 35.7 g/dL 04/07/2025 9:50 AM [facility] RDW 12.8 12.3 - 15.4 % 04/07/2025 9:50 AM [facility] RDW-SD 39.9 37.0 - 54.0 fl 04/07/2025 9:50 AM [facility] MPV 10.8 6.0 - 12.0 fL 04/07/2025 9:50 AM [facility] Platelets 149 140 - 450 10*3/mm3 04/07/2025 9:50 AM [facility] Neutrophil % 66.7 42.7 - 76.0 % 04/07/2025 9:50 AM [facility] Lymphocyte % 20.5 19.6 - 45.3 % 04/07/2025 9:50 AM [facility] Monocyte % 9.8 5.0 - 12.0 % 04/07/2025 9:50 AM EDT [facility] Eosinophil % 2.1 0.3 - 6.2 % 04/07/2025 9:50 AM [facility] Basophil % 0.3 0.0 - 1.5 % 04/07/2025 9:50 AM EDT [facility] Immature Grans % 0.6(H) 0.0 - 0.5 % 04/07/2025 9:50 AM EDT [facility] Neutrophils, Absolute 5.75 1.70 - 7.00 10*3/mm3 04/07/2025 9:50 AM EDT [facility] Lymphocytes, Absolute 1.77 0.70 - 3.10 10*3/mm3 04/07/2025 9:50 AM EDT [facility] Monocytes, Absolute 0.85 0.10 - 0.90 10*3/mm3 04/07/2025 9:50 AM EDT [facility] Eosinophils, Absolute 0.18 0.00 - 0.40 10*3/mm3 04/07/2025 9:50 AM EDT [facility] Basophils, Absolute 0.03 0.00 - 0.20 10*3/mm3 04/07/2025 9:50 AM EDT [facility] Immature Grans, Absolute 0.05 0.00 - 0.05 10*3/mm3 04/07/2025 9:50 AM EDT [facility] nRBC 0.0 0.0 - 0.2 /100 WBC 04/07/2025 9:50 AM EDT [facility] Blood Venipuncture / Unknown 04/07/2025 9:10 AM EDT 04/07/2025 9:38 AM EDT us Jason Álvarez DO LAB BLOOD ORDERABLES Final Resul t [facility]
[address] [place] [address], * (ABNORMAL) Basic Metabolic Panel (04/07/2025 9:10 AM EDT) [facility] Signature Glucose 112(H) 65 - 99 mg/dL 04/07/2025 10:19 AM EDT [facility] BUN 13.1 6.0 - 20.0 mg/dL 04/07/2025 10:19 AM EDT [facility] Creatinine 0.77 0.76 - 1.27 mg/dL 04/07/2025 10:19 AM EDT [facility] Sodium 139 136 - 145 mmol/L 04/07/2025 10:19 AM EDT [facility] Potassium 4.2 3.5 - 5.2 mmol/L 04/07/2025 10:19 AM T [facility] Comment:Specimen hemolyzed. Result may be falsely elevated. Chloride 105 98 - 107 mmol/L 04/07/2025 10:19 AM EDT [facility] CO2 24.8 22.0 - 29.0 mmol/L 04/07/2025 10:19 AM T [facility] Calcium 8.6 8.6 - 10.5 mg/dL 04/07/2025 10:19 AM [facility] BUN/Creatinine Ratio 17.0 7.0 - 25.0 04/07/2025 10:19 AM EDT [facility] Anion Gap 9.2 5.0 - 15.0 mmol/L 04/07/2025 10:19 AM [facility] eGFR 113.2 >60.0 mL/min/1.7 3 04/07/2025 10:19 AM [facility] Blood Venipuncture / Unknown 04/07/2025 9:10 AM EDT 04/07/2025 9:38 AM EDT [facility] - 04/07/2025 10:19 AM EDT [...] DO LAB BLOOD ORDERABLES Final Resul t [facility]
[address] [place] [address], * MRI Tibia Fibula Right With & [...] [place] 04/07/2025 9:58 AM EDT Workstation ID: [id number] Narrative 04/07/2025 9:58 AM EDT MRI TIBIA [...] [place] 04/07/2025 9:58 AM EDT Workstation ID: [id number] us Sushil Dean Jr., MD IM MRI ORDERABLES Mary Beth l Result * Heparin Anti-Xa (04/07/2025 1:42 AM EDT) Heparin Anti-Xa (UFH) 0.38 0.30 - 0.70 IU/ml 04/07/2025 2:14 AM EDT [facility] Blood Venipuncture / Unknown 04/07/2025 1:42 AM EDT 04/07/2025 1:54 AM EDT Chelsie Velasquezprisca [facility] LAB BLOOD ORDERABLES Final R esult Performing Organization Address [facility] Co de Phone Number [facility]
[address] [place] [address], * Heparin Anti-Xa (04/06/2025 7:16 PM EDT) Pathologist [facility] Heparin Anti-Xa (UFH) 0.33 0.30 - 0.70 IU/ml 04/06/2025 7:50 PM EDT [facility] Blood Venipuncture / Unknown 04/06/2025 7:16 PM EDT 04/06/2025 7:35 PM EDT Cherri Beatty [facility] LAB BLOOD ORDERABLES Final Res ult Performing Organization Address [facility] de Phone Number [facility]
[address] [place] [address], [place] [phone] * Potassium (04/06/2025 7:16 PM EDT) Pathologist [facility] Potassium 4.0 3.5 - 5.2 mmol/L 04/06/2025 7:53 PM EDT [facility] Blood Venipuncture / Unknown 04/06/2025 7:16 PM EDT 04/06/2025 7:35 PM EDT Jason Álvarez DO LAB BLOOD ORDERABLES Final Resul t [facility]
[address] [place] [address], * (ABNORMAL) Heparin Anti-Xa (04/06/2025 12:36 PM EDT) Heparin Anti-Xa (UFH) 0.24(L) 0.30 - 0.70 IU/ml 04/06/2025 1:23 PM EDT [facility] Blood Venipuncture / Unknown 04/06/2025 12:36 PM EDT 04/06/2025 1:07 PM EDT Una LundbergD LAB BLOOD ORDERABLES Final R esult Performing Organization Address City/[facility]/ZIP Co de Phone Number [facility]
[address] [place] [address], * (ABNORMAL) Heparin Anti-Xa (04/06/2025 3:42 AM EDT) Heparin Anti-Xa (UFH) 0.25(L) 0.30 - 0.70 IU/ml 04/06/2025 5:30 AM EDT [facility] Blood Venipuncture / Unknown 04/06/2025 3:42 AM EDT 04/06/2025 4:59 AM EDT Chelsie Turpin [facility] LAB BLOOD ORDERABLES Final R esult [facility]
[address] [place] [address], * (ABNORMAL) Basic Metabolic Panel (04/06/2025 3:42 AM EDT) Glucose 94 65 - 99 mg/dL 04/06/2025 5:59 AM EDT [facility] BUN 12.8 6.0 - 20.0 mg/dL 04/06/2025 5:59 AM EDT [facility] Creatinine 0.80 0.76 - 1.27 mg/dL 04/06/2025 5:59 AM EDT [facility] Sodium 138 136 - 145 mmol/L 04/06/2025 5:59 AM EDT [facility] Potassium 3.6 3.5 - 5.2 mmol/L 04/06/2025 5:59 AM EDT [facility] Chloride 103 98 - 107 mmol/L 04/06/2025 5:59 AM EDT [facility] CO2 24.2 22.0 - 29.0 mmol/L 04/06/2025 5:59 AM EDT [facility] Calcium 8.0(L) 8.6 - 10.5 mg/dL 04/06/2025 5:59 AM EDT [facility] BUN/Creatinine Ratio 16.0 7.0 - 25.0 04/06/2025 5:59 AM EDT [facility] Anion Gap 10.8 5.0 - 15.0 mmol/L 04/06/2025 5:59 AM EDT [facility] eGFR 111.9 >60.0 mL/min/1.7 3 04/06/2025 5:59 AM T [facility] Blood Venipuncture / Unknown 04/06/2025 3:42 AM EDT 04/06/2025 5:20 AM EDT [facility] - 04/06/2025 5:59 AM EDT [...] DO LAB BLOOD ORDERABLES Final Resul t [facility]
[address] [place] [address], * (ABNORMAL) CBC Auto Differential (04/06/2025 3:41 AM EDT) WBC 10.86(H) 3.40 - 10.80 10*3/mm3 04/06/2025 5:04 AM EDT [facility] RBC 5.08 4.14 - 5.80 10*6/mm3 04/06/2025 5:04 AM EDT [facility] Hemoglobin 13.9 13.0 - 17.7 g/dL 04/06/2025 5:04 AM EDT [facility] Hematocrit 43.7 37.5 - 51.0 % 04/06/2025 5:04 AM EDT [facility] MCV 86.0 79.0 - 97.0 fL 04/06/2025 5:04 AM EDT [facility] MCH 27.4 26.6 - 33.0 pg 04/06/2025 5:04 AM EDT [facility] MCHC 31.8 31.5 - 35.7 g/dL 04/06/2025 5:04 AM EDT [facility] RDW 12.8 12.3 - 15.4 % 04/06/2025 5:04 AM EDT [facility] RDW-SD 40.0 37.0 - 54.0 fl 04/06/2025 5:04 AM EDT [facility] MPV 11.7 6.0 - 12.0 fL 04/06/2025 5:04 AM EDT [facility] Platelets 115(L) 140 - 450 10*3/mm3 04/06/2025 5:04 AM EDT [facility] Neutrophil % 65.3 42.7 - 76.0 % 04/06/2025 5:04 AM EDT [facility] Lymphocyte % 20.5 19.6 - 45.3 % 04/06/2025 5:04 AM [facility] Monocyte % 11.8 5.0 - 12.0 % 04/06/2025 5:04 AM EDT [facility] Eosinophil % 1.8 0.3 - 6.2 % 04/06/2025 5:04 AM EDT [facility] Basophil % 0.3 0.0 - 1.5 % 04/06/2025 5:04 AM EDT [facility] Immature Grans % 0.3 0.0 - 0.5 % 04/06/2025 5:04 AM EDT [facility] Neutrophils, Absolute 7.09(H) 1.70 - 7.00 10*3/mm3 04/06/2025 5:04 AM EDT [facility] Lymphocytes, Absolute 2.23 0.70 - 3.10 10*3/mm3 04/06/2025 5:04 AM EDT [facility] Monocytes, Absolute 1.28(H) 0.10 - 0.90 10*3/mm3 04/06/2025 5:04 AM EDT [facility] Eosinophils, Absolute 0.20 0.00 - 0.40 10*3/mm3 04/06/2025 5:04 AM EDT [facility] Basophils, Absolute 0.03 0.00 - 0.20 10*3/mm3 04/06/2025 5:04 AM EDT [facility] Immature Grans, Absolute 0.03 0.00 - 0.05 10*3/mm3 04/06/2025 5:04 AM EDT [facility] nRBC 0.0 0.0 - 0.2 /100 WBC 04/06/2025 5:04 AM EDT [facility] Blood Venipuncture / Unknown 04/06/2025 3:41 AM EDT 04/06/2025 4:58 AM EDT us Jason Álvarez DO LAB BLOOD ORDERABLES Final Resul t [facility]
[address] [place] [address], * Heparin Anti-Xa (04/05/2025 8:43 PM EDT) Heparin Anti-Xa (UFH) 0.38 0.30 - 0.70 IU/ml 04/05/2025 9:09 PM EDT [facility] Blood Venipuncture / Unknown 04/05/2025 8:43 PM EDT 04/05/2025 8:55 PM EDT Cherri Beatty [facility] LAB BLOOD ORDERABLES Final Res ult [facility]
[address] [place] [address], * CK (04/05/2025 12:15 PM EDT) Creatine Kinase 140 20 - 200 U/L 04/05/2025 1:31 PM EDT [facility] Blood Venipuncture / Unknown 04/05/2025 12:15 PM EDT 04/05/2025 1:03 PM EDT Carlton Mead MD LAB BLOOD ORDERABLES Final R esult [facility]
[address] [place] [address], * (ABNORMAL) Heparin Anti-Xa (04/05/2025 12:15 PM EDT) Heparin Anti-Xa (UFH) 0.17(L) 0.30 - 0.70 IU/ml 04/05/2025 1:21 PM EDT [facility] Blood Venipuncture / Unknown 04/05/2025 12:15 PM EDT 04/05/2025 1:04 PM EDT Una Perla PharmD LAB BLOOD ORDERABLES Final R esult Performing Organization Address [facility] Co de Phone Number [facility]
[address] [place] [address], * (ABNORMAL) aPTT (04/05/2025 3:54 AM EDT) [facility] PTT 35.3(L) 60.0 - 90.0 seconds 04/05/2025 4:31 AM EDT [facility] Blood Venipuncture / Unknown 04/05/2025 3:54 AM EDT 04/05/2025 4:15 AM EDT Narrative [facility] - 04/05/2025 4:31 AM EDT PTT = The equivalent PTT values for the therapeutic range of heparin levels at 0.3 to 0.5 U/ml are 60 to 70 seconds. us Una Perla PharmD LAB BLOOD ORDERABLES Final R esult Performing Organization Address [facility] Co de Phone Number [facility]
[address] [place] [address], * Heparin Anti-Xa (04/05/2025 3:54 AM EDT) [facility] Heparin Anti-Xa (UFH) 0.30 0.30 - 0.70 IU/ml 04/05/2025 4:32 AM EDT [facility] Blood Venipuncture / Unknown 04/05/2025 3:54 AM EDT 04/05/2025 4:15 AM EDT Una Minda PharmD LAB BLOOD ORDERABLES Final R esult Performing Organization Address [facility] Co de Phone Number [facility]
[address] [place] [address], [place] [phone] * (ABNORMAL) CBC Auto Differential (04/05/2025 3:54 AM EDT) WBC 11.18(H) 3.40 - 10.80 10*3/mm3 04/05/2025 4:20 AM [facility] RBC 5.00 4.14 - 5.80 10*6/mm3 04/05/2025 4:20 AM [facility] Hemoglobin 13.9 13.0 - 17.7 g/dL 04/05/2025 4:20 AM [facility] Hematocrit 42.4 37.5 - 51.0 % 04/05/2025 4:20 AM EDT [facility] MCV 84.8 79.0 - 97.0 fL 04/05/2025 4:20 AM [facility] MCH 27.8 26.6 - 33.0 pg 04/05/2025 4:20 AM [facility] MCHC 32.8 31.5 - 35.7 g/dL 04/05/2025 4:20 AM [facility] RDW 12.9 12.3 - 15.4 % 04/05/2025 4:20 AM [facility] RDW-SD 39.7 37.0 - 54.0 fl 04/05/2025 4:20 AM [facility] MPV 10.2 6.0 - 12.0 fL 04/05/2025 4:20 AM [facility] Platelets 160 140 - 450 10*3/mm3 04/05/2025 4:20 AM [facility] Neutrophil % 73.5 42.7 - 76.0 % 04/05/2025 4:20 AM [facility] Lymphocyte % 14.0(L) 19.6 - 45.3 % 04/05/2025 4:20 AM [facility] Monocyte % 11.0 5.0 - 12.0 % 04/05/2025 4:20 AM [facility] Eosinophil % 0.8 0.3 - 6.2 % 04/05/2025 4:20 AM [facility] Basophil % 0.3 0.0 - 1.5 % 04/05/2025 4:20 AM EDT [facility] Immature Grans % 0.4 0.0 - 0.5 % 04/05/2025 4:20 AM EDT [facility] Neutrophils, Absolute 8.23(H) 1.70 - 7.00 10*3/mm3 04/05/2025 4:20 AM EDT [facility] Lymphocytes, Absolute 1.56 0.70 - 3.10 10*3/mm3 04/05/2025 4:20 AM EDT [facility] Monocytes, Absolute 1.23(H) 0.10 - 0.90 10*3/mm3 04/05/2025 4:20 AM EDT [facility] Eosinophils, Absolute 0.09 0.00 - 0.40 10*3/mm3 04/05/2025 4:20 AM EDT [facility] Basophils, Absolute 0.03 0.00 - 0.20 10*3/mm3 04/05/2025 4:20 AM EDT [facility] Immature Grans, Absolute 0.04 0.00 - 0.05 10*3/mm3 04/05/2025 4:20 AM EDT [facility] nRBC 0.0 0.0 - 0.2 /100 WBC 04/05/2025 4:20 AM T [facility] Blood Venipuncture / Unknown 04/05/2025 3:54 AM EDT 04/05/2025 4:16 AM EDT Una Perla PharmD LAB BLOOD ORDERABLES Final R esult [facility]
[address] [place] [address], * (ABNORMAL) Basic Metabolic Panel (04/05/2025 3:54 AM EDT) Glucose 152(H) 65 - 99 mg/dL 04/05/2025 4:40 AM EDT [facility] BUN 17.3 6.0 - 20.0 mg/dL 04/05/2025 4:40 AM [facility] Creatinine 0.92 0.76 - 1.27 mg/dL 04/05/2025 4:40 AM T [facility] Sodium 136 136 - 145 mmol/L 04/05/2025 4:40 AM [facility] Potassium 3.9 3.5 - 5.2 mmol/L 04/05/2025 4:40 AM EDT [facility] Chloride 103 98 - 107 mmol/L 04/05/2025 4:40 AM T [facility] CO2 24.0 22.0 - 29.0 mmol/L 04/05/2025 4:40 AM [facility] Calcium 7.8(L) 8.6 - 10.5 mg/dL 04/05/2025 4:40 AM [facility] BUN/Creatinine Ratio 18.8 7.0 - 25.0 04/05/2025 4:40 AM T [facility] Anion Gap 9.0 5.0 - 15.0 mmol/L 04/05/2025 4:40 AM [facility] eGFR 105.2 >60.0 mL/min/1.7 3 04/05/2025 4:40 AM [facility] Blood Venipuncture / Unknown 04/05/2025 3:54 AM EDT 04/05/2025 4:15 AM EDT [facility] - 04/05/2025 4:40 AM EDT [...] ORDERABLES Final Re sult Performing Organization Address [facility]/ZIP Co de Phone Number [facility]
[address] [place] [address], * (ABNORMAL) aPTT (04/05/2025 12:18 AM EDT) PTT 33.6(L) 60.0 - 90.0 seconds 04/05/2025 12:53 AM EDT [facility] Blood Venipuncture / Unknown 04/05/2025 12:18 AM EDT 04/05/2025 12:37 AM EDT Narrative [facility] - 04/05/2025 12:53 AM EDT PTT = The equivalent PTT values for the therapeutic range of heparin levels at 0.3 to 0.5 U/ml are 60 to 70 seconds. Una Perla PharmD LAB BLOOD ORDERABLES Final R esult Performing Organization Address [facility] Co de Phone Number [facility]
[address] [place] [address], * (ABNORMAL) Protime-INR (04/05/2025 12:18 AM EDT) Protime 15.9(H) 12.2 - 15.3 Seconds 04/05/2025 12:53 AM EDT [facility] INR 1.19(H) 0.89 - 1.12 04/05/2025 12:53 AM EDT [facility] Blood Venipuncture / Unknown 04/05/2025 12:18 AM EDT 04/05/2025 12:37 AM EDT Una Perla PharmD LAB BLOOD ORDERABLES Final R esult Performing Organization Address City/[facility]/ZIP Co de Phone Number [facility]
[address] [place] [address], * Heparin Anti-Xa (04/05/2025 12:18 AM EDT) Heparin Anti-Xa (UFH) 0.39 0.30 - 0.70 IU/ml 04/05/2025 12:54 AM EDT [facility] Blood Venipuncture / Unknown 04/05/2025 12:18 AM EDT 04/05/2025 12:37 AM EDT Una Perla PharmD LAB BLOOD ORDERABLES Final R esult [facility]
[address] [id number], * MRI Tibia Fibula Right With & [...] MD 04/04/2025 11:00 PM EDT Workstation ID: [id number] Narrative 04/04/2025 11:00 PM EDT MRI TIBIA [...] MD 04/04/2025 11:00 PM EDT Workstation ID: [id number] Leonora Shepherd MD IMG MRI ORDERABLES Final Resu lt * POC Creatinine (04/04/2025 2:49 PM EDT) [facility] Creatinine 1.10 0.60 - 1.30 mg/dL 04/07/2025 7:14 PM EDT [facility] Comment:Serial Number: [id number] 7Operator: [id number] Venous Blood 04/04/2025 2:49 PM EDT 04/07/2025 7:14 PM EDT Jason Álvarez DO POINT OF CARE TEST ORDERABLES Fi nal Result [facility] [place] [address], * (ABNORMAL) CBC Auto Differential (04/04/2025 2:47 PM EDT) [facility] WBC 12.72(H) 3.40 - 10.80 10*3/mm3 04/04/2025 2:56 PM EDT [facility] RBC 5.64 4.14 - 5.80 10*6/mm3 04/04/2025 2:56 PM EDT [facility] Hemoglobin 15.3 13.0 - 17.7 g/dL 04/04/2025 2:56 PM EDT [facility] Hematocrit 47.9 37.5 - 51.0 % 04/04/2025 2:56 PM EDT [facility] MCV 84.9 79.0 - 97.0 fL 04/04/2025 2:56 PM EDT [facility] MCH 27.1 26.6 - 33.0 pg 04/04/2025 2:56 PM EDT [facility] MCHC 31.9 31.5 - 35.7 g/dL 04/04/2025 2:56 PM EDT [facility] RDW 13.1 12.3 - 15.4 % 04/04/2025 2:56 PM EDT [facility] RDW-SD 40.3 37.0 - 54.0 fl 04/04/2025 2:56 PM EDT [facility] MPV 9.4 6.0 - 12.0 fL 04/04/2025 2:56 PM EDT [facility] Platelets 232 140 - 450 10*3/mm3 04/04/2025 2:56 PM EDT [facility] Neutrophil % 74.9 42.7 - 76.0 % 04/04/2025 2:56 PM EDT [facility] Lymphocyte % 13.1(L) 19.6 - 45.3 % 04/04/2025 2:56 PM EDT [facility] Monocyte % 11.2 5.0 - 12.0 % 04/04/2025 2:56 PM EDT [facility] Eosinophil % 0.4 0.3 - 6.2 % 04/04/2025 2:56 PM EDT [facility] Basophil % 0.2 0.0 - 1.5 % 04/04/2025 2:56 PM EDT [facility] Immature Grans % 0.2 0.0 - 0.5 % 04/04/2025 2:56 PM EDT [facility] Neutrophils, Absolute 9.52(H) 1.70 - 7.00 10*3/mm3 04/04/2025 2:56 PM EDT [facility] Lymphocytes, Absolute 1.66 0.70 - 3.10 10*3/mm3 04/04/2025 2:56 PM EDT [facility] Monocytes, Absolute 1.43(H) 0.10 - 0.90 10*3/mm3 04/04/2025 2:56 PM EDT [facility] Eosinophils, Absolute 0.05 0.00 - 0.40 10*3/mm3 04/04/2025 2:56 PM EDT [facility] Basophils, Absolute 0.03 0.00 - 0.20 10*3/mm3 04/04/2025 2:56 PM EDT [facility] Immature Grans, Absolute 0.03 0.00 - 0.05 10*3/mm3 04/04/2025 2:56 PM EDT [facility] nRBC 0.0 0.0 - 0.2 /100 WBC 04/04/2025 2:56 PM EDT [facility] Blood Venipuncture / Unknown 04/04/2025 2:47 PM EDT 04/04/2025 2:52 PM EDT Mario Crowley LAB BLOOD ORDERABLES Fin al Result [facility]
[address] [place] [address], * (ABNORMAL) C-reactive Protein (04/04/2025 2:47 PM EDT) C-Reactive Protein 8.57(H) 0.00 - 0.50 mg/dL 04/04/2025 3:26 PM EDT [facility] Blood Venipuncture / Unknown 04/04/2025 2:47 PM EDT 04/04/2025 2:52 PM EDT Mario Crowley LAB BLOOD ORDERABLES Fin al Result [facility]
[address] [place] [address], * (ABNORMAL) Sedimentation Rate (04/04/2025 2:47 PM EDT) Sed Rate 51(H) 0 - 15 mm/hr 04/04/2025 3:06 PM EDT [facility] Blood Venipuncture / Unknown 04/04/2025 2:47 PM EDT 04/04/2025 2:52 PM EDT Mario Crowley DO LAB BLOOD ORDERABLES Fin al Result [facility]
[address] [place] [address], * Comprehensive Metabolic Panel (04/04/2025 2:47 PM EDT) Glucose 90 65 - 99 mg/dL 04/04/2025 3:26 PM EDT [facility] BUN 18.3 6.0 - 20.0 mg/dL 04/04/2025 3:26 PM EDT [facility] Creatinine 0.94 0.76 - 1.27 mg/dL 04/04/2025 3:26 PM EDT [facility] Sodium 136 136 - 145 mmol/L 04/04/2025 3:26 PM EDT [facility] Potassium 3.8 3.5 - 5.2 mmol/L 04/04/2025 3:26 PM EDT [facility] Chloride 100 98 - 107 mmol/L 04/04/2025 3:26 PM EDT [facility] CO2 25.3 22.0 - 29.0 mmol/L 04/04/2025 3:26 PM EDT [facility] Calcium 8.6 8.6 - 10.5 mg/dL 04/04/2025 3:26 PM EDT [facility] Total Protein 7.3 6.0 - 8.5 g/dL 04/04/2025 3:26 PM EDT [facility] Albumin 4.1 3.5 - 5.2 g/dL 04/04/2025 3:26 PM EDT [facility] ALT (SGPT) 26 1 - 41 U/L 04/04/2025 3:26 PM EDT [facility] AST (SGOT) 25 1 - 40 U/L 04/04/2025 3:26 PM EDT [facility] Alkaline Phosphatase 106 39 - 117 U/L 04/04/2025 3:26 PM EDT [facility] Total Bilirubin 1.0 0.0 - 1.2 mg/dL 04/04/2025 3:26 PM EDT [facility] Globulin 3.2 gm/dL 04/04/2025 3:26 PM EDT [facility] Comment:Calculated Result A/G Ratio 1.3 g/dL 04/04/2025 3:26 PM EDT [facility] BUN/Creatinine Ratio 19.5 7.0 - 25.0 04/04/2025 3:26 PM EDT [facility] Anion Gap 10.7 5.0 - 15.0 mmol/L 04/04/2025 3:26 PM EDT [facility] eGFR 102.5 >60.0 mL/min/1.7 3 04/04/2025 3:26 PM EDT [facility] Blood Venipuncture / Unknown 04/04/2025 2:47 PM EDT 04/04/2025 2:52 PM EDT [facility] - 04/04/2025 3:26 PM EDT [...] DO LAB BLOOD ORDERABLES Fin al Result [facility]
[address] [place] [address], documented in this encounter Visit Diagnoses Diagnosis [...] disposal. 830 (Given - Provider: Amber Salazar, BUCCARO)1943 (Given - Provider: Anahy Marcelino, KELL)2129 (Canceled [...] Continuous Medication Order 04/09/2025 04/10/2025 04/11/2025 heparin 58070 units/250 mL (100 units/mL) in 0.45 % [...] (Not Given: See Alt - Provider: Alberto Dillno RN) 0906 (Not Given: See Alt - [...] Provider: Alberto Dillon, RN)0906 (Given - Provider: Shilrey Hart, RN)1508 (Given - Provider: Shirley Hart, [...] documented as of this encounter Care Teams Network Systems Consultant Relationship Specialty Start Date End Date Provider, [place] [address] PCP - General 05/09/23 documented as of this encounter
--- OUTSIDE RECORDS SUMMARY | 2025-04-07 20:36 | XMS_ITS | Encounter Summary ---
Author Organization [facility] Address [address] [place] [address] Care Team Providers Care Wet Washer Machine Name Role Phone Provider, No Known Primary Care Provider Unavail able Reason for Visit * Auth/Cert Specialty Diagnoses / Procedures Referred By Bulmaro muniz Referred To Contact Diagnoses Right BKA infection Referral ID Status Reason Start Date Expiration Date Visits Re quested Visits Authorized [id number] 1 1 Encounter Details Date Type Department Care Team (Late st Contact Info) Description 04/07/2025 8:36 PM EDT Anesthesia Event [facility] OR [address] [place] [address] Luci Alonso DO [address] [place] [address] Anesthesia Record Procedure Summary Procedure Name Responsible [...] oz pur e alcohol) [facility] Utilities Answer Date Recorded In the past 12 months has [employer], gas, oil, or water [employer] threatened to shut off services in your [...] PACU on O2NC, breathing comfortably. Report to BIOPSYCHOLOGIST at bedside. VSS. 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 ) intravenous induction Anesthetic plan, risks, benefits, and alternatives have been provided, discussed and informed consent has been obtained with: patient. Plan discussed with FORESTRY CONTRACTOR. CODE STATUS: Code Status (Patient has no [...] documented as of this encounter Care Teams Wet Washer Machine Relationship Specialty Start Date End Date Provider, No Known [facility] [place] [address] PCP - General 05/09/23 documented as of this encounter
--- OUTSIDE RECORDS SUMMARY | 2025-04-08 14:45 | XMS_ITS | Encounter Summary ---
[facility] Address [address] [place] [address] Care Team Providers Care Postal Superintendent Name Role Phone Provider, No Known Primary Care Provider Unavail able Reason for Visit * Reason Comments Leg Swelling * Auth/Cert Specialty Diagnoses / Procedures Referred By Contac t Referred To Contact Diagnoses Right BKA infection Referral ID Status Reason Start Date Expiration Date Visits Re quested Visits Authorized [id number] 1 1 Encounter Details Date Type Department Care Team (Late st Contact Info) Description 04/08/2025 2:45 PM EDT - 04/08/2025 4:04 PM EDT Surgery [facility] OR [address] [place] [address] Sushil Dean Jr., MD [address] [place] [address] [address] [id number] LEG DEBRIDEMENT AND IRRIGATION Social History Tobacco Use Types Packs/Day Years Used Date Smoking Tobacco: Never Smokeless Tobacco: Never Tobacco Cessation:Counseling Given: Not Answered Alcohol Use Standard Drinks/Week Comments Not Currently 0 (1 standard drink = 0.6 oz pur e alcohol) [facility] Utilities Answer Date Recorded In the past 12 months has [facility] electric, gas, oil, or water company threatened [...] 2:25 PM EDT Cherri Grimm RN * [place] Suicide Severity Rating Scale (Screener/Recent Self-Report) Question [...] Date/Time Wound Culture - Swab, Leg, Right [[id number]] (Abnormal) (Susceptibility) Collected: 04/07/252106 Lab Status: Final [...] Units Date/Time FL C Arm During Surgery [[id number]] Resulted: 04/07/252137 Updated: 04/07/252137 Narrative: This procedure was auto-finalized with no dictation required. MRI Tibia Fibula Right With & Without Contrast [[id number]] Collected: 04/07/25 0938 Updated: 04/07/25 1001 Narrative: [...] Buenrostro 04/07/2025 9:58 AM EDT Workstation ID: [id number] MRI Tibia Fibula Right With & Without Contrast [[id number]] Collected: 04/04/252256 Updated: 04/04/252302 Narrative: MRI TIBIA [...] represent a small area of phlegmonous change ([id number] image 10) measuring approximately 1.6 cm which [...] MD 04/04/2025 11:00 PM EDT Workstation ID: [id number] Pending Labs Order Current Status Fungus Culture [...] Male) Date of 1980 Social Security Number [id number] [place] [address] [place] [address] Oriental Orthodox Unknown Marital Status Unknown Admission [...] Plan Insurance Group Employer/Plan Group [place] [id number] Payor Plan Address Payor Plan Phone Number Payor Plan Fax Number Effective Dates [employer] [address] [address] 08/10/2023 - None Entered Formerly [facility] [address] Subscriber Name Subscriber Date Member ID WON DENNIS 1980 [id number] Emergency Contacts Program Project Manager (Rel.) Home Phone Work Phone Mobile Phone Avril Dennis (Spouse) -- -- [phone] Robert Hackett (Relative) -- -- [phone] [facility] [address] [facility] [address] Patient: ROOM: [facility] Won Dennis [address] [facility] [address] : 1980 SSN: [id number] Sex: M PCP: Provider, No Known Emergency Contact Information Name Relation Home Work Mobile Avril Dennis Spouse [phone] Other Contacts Name Relation Home Work Mobile Robert Hackett Relative [phone] INSURANCE PAYOR PLAN GROUP # SUBSCRIBER ID Primary: Secondary: MEDICARE [employer] [place] [id number] Admitting Diagnosis: Right BKA infection [T87.43] Order Date: Apr 09, 2025 Case Management Opener Tender Consult (Order ID: [id number]) Diagnosis: Priority: Routine Expected Date: Expiration Date: [...] INFECTIOUS DISEASE Progress Note Won Dennis 1980 [id number] Date of Consult: 04/10/2025 Admission Date: 04/04/2025 [...] Jr., MD, 20 mg at 04/09/25906 heparin 92898 units/250 mL (100 units/mL) in 0.45 % [...] vancomycin 2750 mg/500 mL 0.9% NS IVPB ([facility]) Ordering Provider: Mario Crowley, DO 20 [...] Units Date/Time FL C Arm During Surgery [[id number]] Resulted: 04/07/252137 Updated: 04/07/252137 Narrative: This procedure was auto-finalized with no dictation required. MRI Tibia Fibula Right With & Without Contrast [[id number]] Collected: 04/07/2538 Updated: 04/07/25 1001 Narrative: MRI [...] Buenrostro 04/07/2025 9:58 AM EDT Workstation ID: [id number] Impression: Recurrent Right BKA stump abscess/cellulitis- this [...] discussed his disposition with the pharmacist at [facility] today. I will sign off Outpatient orders: 1. Outpatient intravenous antibiotic therapy: Daptomycin 800 mg IV daily to be supplied by [facility] 2. Home health to perform [...] Creation Time: 04/10/251323 Signed Expand All [facility] PROGRESS NOTE Patient Name: Won [...] Date/Time Wound Culture - Swab, Leg, Right [[id number]] (Abnormal) (Susceptibility) Collected: 04/07/252106 Lab Status: Final [...] Row Name 04/06/25 1143 Sit-Stand Transfer Sit-Stand [place] (Transfers) modified independence - Comment, (Sit-Stand Transfer) Pt stood from recliner. Not holding onto walker, pt able to pull his pants up while balancing on his one leg. -LM Row Name 04/06/25 1143 Gait/Stairs (Locomotion) [place] Level (Gait) modified independence - Distance in [...] Motion bilateral lower extremity ROM WFL -LM [facility] Name 04/06/25 1145 Strength Comprehensive (MMT) General Manual Muscle Testing (MMT) Assessment no strength deficits identified BLEs -LM [facility] Name 04/06/25 1145 Balance Balance Assessment [...] No documentation. Clinical Impression [facility] 04/06/25 1146 Pain Pretreatment Pain Rating 0/10 - no pain -LM Posttreatment Pain Rating 0/10 - no pain -LM [facility] 04/06/25 1146 Plan of Care Review Plan of Care Reviewed With patient -LM Outcome Evaluation PT evaluation completed. Pt demonstrated independence with all mobility including ambulating 100 feet using rw - no unsteadiness noted. Pt reports he feels at baseline and doesn't think he needs skilled PT while here. Recommend home at d/c. PT signing off. -LM [facility] Name 04/06/25 1146 Therapy Assessment/Plan (PT) Criteria for Skilled Interventions Met (PT) no;no problems identified which require skilled intervention -LM Therapy Frequency (PT) evaluation only -LM Predicted Duration of Therapy Intervention (PT) Eval Only -LM [facility] Name 04/06/25 1146 Vital Signs Pretreatment Heart Rate (beats/min) 86 -LM Posttreatment Heart Rate (beats/min) 96 -LM Pre SpO2 (%) 95 -LM O2 Delivery Pre Treatment room air -LM Post SpO2 (%) 96 -LM O2 Delivery Post Treatment room air -LM Pre Patient Position Sitting -LM Post Patient Position Sitting -LM [facility] Name 04/06/25 1146 Positioning and Restraints [...] Nurse Physical Therapy Education Title: PT OT PRINTING SHOP SUPERVISOR Therapies (Done) Topic: Physical Therapy (Done) [...] Description Service Date Service Provider Modifiers Qty [id number] PT EVAL LOW COMPLEXITY 3 04/06/2025 Susan [...] Date/Time Wound Culture - Swab, Leg, Right [[id number]] (Abnormal) (Susceptibility) Collected: 04/07/252106 Lab Status: Final [...] INFECTIOUS DISEASE Progress Note Won Dennis 1980 [id number] Date of Consult: 04/10/2025 Admission Date: 04/04/2025 [...] IRRIGATION; Surgeon: Sushil Dean Jr., MD; Location: [email or web address] OR; Service: Orthopedics; Laterality: Right; PLACEMENT OF [...] Jr., MD, 20 mg at 04/09/25906 heparin 17157 units/250 mL (100 units/mL) in 0.45 % [...] Units Date/Time FL C Arm During Surgery [[id number]] Resulted: 04/07/252137 Updated: 04/07/252137 Narrative: This procedure was auto-finalized with no dictation required. MRI Tibia Fibula Right With & Without Contrast [[id number]] Collected: 04/07/25 0938 Updated: 04/07/25 1001 Narrative: [...] Chitra 04/07/2025 9:58 AM EDT Workstation ID: [id number] Impression: Recurrent Right BKA stump abscess/cellulitis- this [...] discussed his disposition with the pharmacist at [facility] today. I will sign off Outpatient orders: 1. Outpatient intravenous antibiotic therapy: Daptomycin 800 mg IV daily to be supplied by [facility] 2. Home health to perform [...] MD 04/10/2025 07:38 EDT * Larisa Hamilton, [facility] - 04/10/2025 7:17 [...] 0500 0.30 11 -- -- 11 1200 [facility] 04/05 1215 0.17 11 1999 +3 [...] Date/Time Wound Culture - Swab, Leg, Right [[id number]] (Abnormal) Collected: 04/07/252106 Lab Status: Preliminary result [...] Jason Álvarez DO 04/09/25 * Larisa Hamilton, [facility] - 04/09/2025 11:36 [...] 0500 0.30 11 -- -- 11 1200 [facility] 04/05 1215 0.17 11 1999 +3 [...] INFECTIOUS DISEASE Progress Note Won Dennis 1980 [id number] Date of Consult: 04/09/2025 Admission Date: 04/04/2025 [...] IRRIGATION; Surgeon: Sushil Dean Jr., MD; Location: [facility]; Service: Orthopedics; Laterality: Right; PLACEMENT OF WOUND VAC Right 04/07/2025 Procedure: WOUND VACUUM ASSISTED CLOSURE; Surgeon: Sushil Dean Jr., MD; Location: [facility]; Service: Orthopedics; Laterality: Right; History reviewed. No [...] MD, 20 mg at 04/08/25 0800 heparin 52984 units/250 mL (100 units/mL) in 0.45 % [...] Units Date/Time FL C Arm During Surgery [[id number]] Resulted: 04/07/252137 Updated: 04/07/252137 Narrative: This procedure was auto-finalized with no dictation required. MRI Tibia Fibula Right With & Without Contrast [[id number]] Collected: 04/07/25937 Updated: 04/07/25 1001 Narrative: MRI [...] Chitra 04/07/2025 9:58 AM EDT Workstation ID: [id number] Impression: Recurrent Right BKA stump abscess/cellulitis- this [...] Buenrostro 04/07/2025 9:58 AM EDT Workstation ID: [id number] I have personally reviewed the therapy plans: [...] Jason DO Preeti 04/08/25 * Larisa Hamilton, [facility] - 04/08/2025 11:48 [...] for today, follow for restart after procedure Lairsa Hamilton RPH 04/08/2025 11:47 EDT * Carlton Mead MD - 04/08/2025 7:37 AM EDT Images from the original note were not included. INFECTIOUS DISEASE Progress Note Won Dennis 1980 [id number] Date of Consult: 04/08/2025 Admission Date: 04/04/2025 [...] Surgeon: Sushil Dean Jr., MD; Location: [facility] OR; Service: Orthopedics; Laterality: Right; PLACEMENT [...] Jr., MD, 20 mg at 04/07/25950 heparin 86756 units/250 mL (100 units/mL) in 0.45 % [...] Units Date/Time FL C Arm During Surgery [[id number]] Resulted: 04/07/252137 Updated: 04/07/252137 Narrative: This procedure was auto-finalized with no dictation required. MRI Tibia Fibula Right With & Without Contrast [[id number]] Collected: 04/07/25 0938 Updated: 04/07/25 1001 Narrative: [...] Buenrostro 04/07/2025 9:58 AM EDT Workstation ID: [id number] Impression: Right BKA stump cellulitis- s/p BKA with multiple surgical interventions with Known MRSA 05/09/2025. (Treated by ID in [place] Dr. Harris). Dr. Torres treated him with [...] Buenrostro 04/07/2025 9:58 AM EDT Workstation ID: [id number] I have personally reviewed the therapy plans: [...] 18 Units/kg/hr, Last Rate: 18 Units/kg/hr (04/07/25 7918) Pharmacy to Dose Heparin, PRN Meds:. acetaminophen [...] INFECTIOUS DISEASE Progress Note Won Dennis 1980 [id number] Date of Consult: 04/07/2025 Admission Date: 04/04/2025 [...] Application, 1 Application, Topical, Q12H, Ayah Valentin, PRECISION CROP MANAGER, 1 Application at 04/06/252101 DAPTOmycin (CUBICIN) [...] MD, 20 mg at 04/06/25 0900 heparin 79083 units/250 mL (100 units/mL) in 0.45 % NaCl infusion, 18 Units/kg/hr, Intravenous, Titrated, Cherri Beatty, [facility], Last Rate: 24.1 mL/hr at 04/07/25217, 18 [...] With & Without Contrast - In process [[id number]] Resulted: 04/07/25828 Updated: 04/07/25828 This result has not been signed. Information might be incomplete. 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 (Treated by ID in [place] Dr. Harris). Dr. Torres treated him with [...] mg Daily 04/05/2025 -- Route: Oral heparin 45945 units/250 mL (100 units/mL) in 0.45 % [...] -- Admin Instructions: Open Order & Select [facility] Electrolyte Replacement Protocol Algorithm to View [...] -- Admin Instructions: Open Order & Select [facility] Electrolyte Replacement Protocol Algorithm to View [...] 0500 0.30 11 -- -- 11 1200 [facility] 04/05 1215 0.17 11 1999 +3 14 2100 DW RN Pump checked 04/05 2043 0.38 14 -- -- 14 0300 [facility] 04/06 0530 0.25 14 -- +2 16 1200 LU Mary 04/06 1236 0.24 16 -- +2 18 1999 LU Beatty [facility] 04/06/2025 13:48 EDT * Jason Álvarez DO [...] MD 04/04/2025 11:00 PM EDT Workstation ID: [id number] I have personally reviewed the therapy plans: [...] mg Daily 04/05/2025 -- Route: Oral heparin 70195 units/250 mL (100 units/mL) in 0.45 % [...] INFECTIOUS DISEASE follow up. Won Dennis 1980 [id number] Date of Consult: 04/06/2025 Admission Date: 04/04/2025 [...] MD, 20 mg at 04/06/25 0900 heparin 22790 units/250 mL (100 units/mL) in 0.45 % NaCl infusion, 18 Units/kg/hr, Intravenous, Titrated, Cherri Beatty [facility], Last Rate: 24.1 mL/hr at 04/06/25 1420, 18 Units/kg/hr at 04/06/25 1420 hydroCHLOROthiazide tablet 12.5 mg, 12.5 mg, Oral, Daily, Lenoora Shepherd MD, 12.5 mg at 859 HYDROmorphone [...] Tibia Fibula Right With & Without Contrast [[id number]] Collected: 04/04/252256 Updated: 04/04/252302 Narrative: MRI TIBIA [...] represent a small area of phlegmonous change ([id number] image 10) measuring approximately 1.6 cm which [...] MD 04/04/2025 11:00 PM EDT Workstation ID: [id number] Impression: Right BKA stump cellulitis- s/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 (Treated by ID in [place] Dr. Harris). Dr. Torres treated him with [...] MD 04/04/2025 11:00 PM EDT Workstation ID: [id number] I have personally reviewed the therapy plans: [...] MD 04/04/2025 11:00 PM EDT Workstation ID: [id number] Assessment & Plan Assessment & Plan Won [...] ORTHOPEDIC SURGERY [facility], [facility] [address] [facility] 250 Orthopedic Consult Patient: Won Dennis [...] was evaluated in the emergency department in [place], was discharged with instructions for follow-up. He [...] mouth Daily. 04/03/2025 Morning Lactobacillus-Inulin ([facility]) capsule Take 200 mg by mouth [...] MD 04/04/2025 11:00 PM EDT Workstation ID: [id number] Assessment: Right BKA infection 44-year-old male with [...] DISEASE CONSULT/INITIAL HOSPITAL VISIT Won Dennis 1980 [id number] Date of Consult: 04/05/2025 Admission Date: 04/04/2025 [...] 325 mg, 325 mg, Rectal, Q6H PRN, eLonora Shepherd MD atorvastatin (LIPITOR) tablet 40 mg, [...] MD, 20 mg at 04/05/25 0916 heparin 32019 units/250 mL (100 units/mL) in 0.45 % [...] 10 mL, 10 mL, Intravenous, PRN, Leonora Shephedr MD sodium chloride 0.9 % flush 10 [...] Tibia Fibula Right With & Without Contrast [[id number]] Collected: 04/04/252256 Updated: 04/04/252302 Narrative: MRI TIBIA [...] represent a small area of phlegmonous change ([id number] image 10) measuring approximately 1.6 cm which [...] MD 04/04/2025 11:00 PM EDT Workstation ID: [id number] Impression: Right BKA stump cellulitis- s/p BKA with multiple surgical interventions with Known MRSA 05/09/2025. (Treated by ID in [place] Dr. Harris). Dr. Torres treated him with [...] Jr., MD - 04/08/2025 3:51 PM EDT [facility] OPERATIVE REPORT PATIENT NAME: Won Dennis DATE OF : 1980 PREOP DIAGNOSIS: Right Right below-knee amputation infection POSTOP DIAGNOSIS: Same. PROCEDURE: Right Right 07703: Secondary closure below-knee amputation SURGEON: Sushil Dena MD OPERATIVE TEAM: Net Application Support Specialist: Susi Grullon RN Scrub Person: Mary Paredes Scrub Person Extra: Hortencia Toribio Other: Katt Gotti RN; Charis Neville RN ANESTHETIST: Anesthesiologist: Ulises Hoffman MD LABOR ECONOMIST: Stan Casillas CRNA Student Nurse Ep Tech: Karol Albert SRNA ANESTHESIA: Choice ESTIMATED BLOOD [...] CULTURE (Canceled) Sushil Dean Jr., MD 04/08/25 1322 Description: RIGHT LEG DEEP WOUND FOR CULTURE [...] PM EDT [facility] [address] [place] 250 OPERATIVE REPORT PATIENT NAME: Won Dennis DATE OF : 1980 PREOP DIAGNOSIS: Right Right below knee amputation stump infection POSTOP DIAGNOSIS: Same. PROCEDURE: Right Right 15648: Incision and drainage of surgical site infection 13906: Debridement of skin, subcutaneous tissue, muscle 60399: Wound vacuum-assisted closure SURGEON: Sushil Dean MD OPERATIVE TEAM: Net Application Support Specialist: Anum Sanchez RN Scrub Person: Hortencia Toribio; Gerald Ivey STRIPE MARKER: Anesthesiologist: Luci Alonso DO ANESTHESIA: General ESTIMATED [...] Birthdate: 1980 Date of evaluation: 04/04/2025 Provider: aMrio Crowley DO CHIEF COMPLAINT Chief Complaint Patient [...] this chart in the absence of a university intern. No orders to display RADIOLOGY: [x] Radiologist's [...] home with outpatient infusion at [facility]. He has an appointment with [facility] at 8:00 am tomorrow. They will do PICC line dressing changes. CM has spoke with Dena at [facility] today multiple times to get [...] with KELLEE and given themhis Medicare number [id number], she sent it to Admission. CM spoke with Kerri, with [facility], [...] dressing changes and lab work. CM called [facility] they can accept patient and start him. He is known for their facility. The Facility will need to run it through his insurance first. CM faxed the orders over to [facility] at [phone]. CM will follow up with them tomorrow at [facility] to make sure they received the orders. [...] with patient at bedside today. Wheelchair from [employer] is at bedside. Patient getting PICC line [...] note were not included. Discharge Planning Assessment [facility] Patient Name: Won Dennis Today's Date: [...] Patient/Family Anticipated Services at Transition case management rninventory specialist manager Anticipated family or friend will provide [...] for home. CM will order wheelchair through [employer]. He is not current with home health services. PCP is Dr. Jordan. [place] [employer] [place]. Patient discharge plan is home with priavte [...] - 5.80 10*6/mm3 04/11/2025 4:02 AM EDT [facility] Hemoglobin 12.8(L) 13.0 - 17.7 g/dL 04/11/2025 4:02 AM EDT [facility] Hematocrit 40.5 37.5 - 51.0 % 04/11/2025 4:02 AM EDT [facility] MCV 86.2 79.0 - 97.0 fL 04/11/2025 4:02 AM EDT [facility] MCH 27.2 26.6 - 33.0 pg 04/11/2025 4:02 AM EDT [facility] MCHC 31.6 31.5 - 35.7 g/dL 04/11/2025 4:02 AM EDT [facility] RDW 12.9 12.3 - 15.4 % 04/11/2025 4:02 AM EDT [facility] RDW-SD 40.5 37.0 - 54.0 fl 04/11/2025 4:02 AM EDT [facility] MPV 9.2 6.0 - 12.0 fL 04/11/2025 4:02 AM [facility] Platelets 267 140 - 450 10*3/mm3 04/11/2025 4:02 AM [facility] Neutrophil % 59.5 42.7 - 76.0 % 04/11/2025 4:02 AM [facility] Lymphocyte % 26.3 19.6 - 45.3 % 04/11/2025 4:02 AM [facility] Monocyte % 9.3 5.0 - 12.0 % 04/11/2025 4:02 AM [facility] Eosinophil % 4.1 0.3 - 6.2 % 04/11/2025 4:02 AM [facility] Basophil % 0.4 0.0 - 1.5 % 04/11/2025 4:02 AM [facility] Immature Grans % 0.4 0.0 - 0.5 % 04/11/2025 4:02 AM [facility] Neutrophils, Absolute 4.69 1.70 - 7.00 10*3/mm3 04/11/2025 4:02 AM [facility] Lymphocytes, Absolute 2.07 0.70 - 3.10 10*3/mm3 04/11/2025 4:02 AM [facility] Monocytes, Absolute 0.73 0.10 - 0.90 10*3/mm3 04/11/2025 4:02 AM [facility] Eosinophils, Absolute 0.32 0.00 - 0.40 10*3/mm3 04/11/2025 4:02 AM [facility] Basophils, Absolute 0.03 0.00 - 0.20 10*3/mm3 04/11/2025 4:02 AM [facility] Immature Grans, Absolute 0.03 0.00 - 0.05 10*3/mm3 04/11/2025 4:02 AM [facility] nRBC 0.0 0.0 - 0.2 /100 WBC 04/11/2025 4:02 AM [facility] Blood Venipuncture / Unknown 04/11/2025 3:40 AM EDT 04/11/2025 3:59 AM EDT Sushil Dean Jr., MD LAB BLOOD ORDERABLES Fi nal Result [facility]
[address] [place] [address], * (ABNORMAL) Comprehensive Metabolic Panel (04/11/2025 3:40 AM EDT) Glucose 108(H) 65 - 99 mg/dL 04/11/2025 4:19 AM EDT [facility] BUN 12.5 6.0 - 20.0 mg/dL 04/11/2025 4:19 AM EDT [facility] Creatinine 0.68(L) 0.76 - 1.27 mg/dL 04/11/2025 4:19 AM EDT [facility] Sodium 140 136 - 145 mmol/L 04/11/2025 4:19 AM EDT [facility] Potassium 3.8 3.5 - 5.2 mmol/L 04/11/2025 4:19 AM EDT [facility] Chloride 105 98 - 107 mmol/L 04/11/2025 4:19 AM EDT [facility] CO2 28.2 22.0 - 29.0 mmol/L 04/11/2025 4:19 AM EDT [facility] Calcium 8.2(L) 8.6 - 10.5 mg/dL 04/11/2025 4:19 AM EDT [facility] Total Protein 6.1 6.0 - 8.5 g/dL 04/11/2025 4:19 AM EDT [facility] Albumin 3.1(L) 3.5 - 5.2 g/dL 04/11/2025 4:19 AM EDT [facility] ALT (SGPT) 52(H) 1 - 41 U/L 04/11/2025 4:19 AM EDT [facility] AST (SGOT) 40 1 - 40 U/L 04/11/2025 4:19 AM EDT [facility] Alkaline Phosphatase 99 39 - 117 U/L 04/11/2025 4:19 AM EDT [facility] Total Bilirubin 0.2 0.0 - 1.2 mg/dL 04/11/2025 4:19 AM EDT [facility] Globulin 3.0 gm/dL 04/11/2025 4:19 AM EDT [facility] Comment:Calculated Result A/G Ratio 1.0 g/dL 04/11/2025 4:19 AM EDT [facility] BUN/Creatinine Ratio 18.4 7.0 - 25.0 04/11/2025 4:19 AM EDT [facility] Anion Gap 6.8 5.0 - 15.0 mmol/L 04/11/2025 4:19 AM EDT [facility] eGFR 117.5 >60.0 mL/min/1.7 3 04/11/2025 4:19 AM T [facility] Blood Venipuncture / Unknown 04/11/2025 3:40 AM EDT 04/11/2025 3:56 AM EDT [facility] - 04/11/2025 4:19 AM EDT [...] Result [facility]
[address] [place] [address], * (ABNORMAL) CBC Auto Differential (04/10/2025 3:46 AM EDT) [facility] [address] WBC 9.60 3.40 - 10.80 10*3/mm3 04/10/2025 [...] - 33.0 pg 04/10/2025 3:56 AM EDT [facility] MCHC 32.2 31.5 - 35.7 g/dL 04/10/2025 3:56 AM EDT [facility] RDW 12.9 12.3 - 15.4 % 04/10/2025 3:56 AM EDT [facility] RDW-SD 40.5 37.0 - 54.0 fl 04/10/2025 3:56 AM EDT [facility] MPV 9.5 6.0 - 12.0 fL 04/10/2025 3:56 AM EDT [facility] Platelets 227 140 - 450 10*3/mm3 04/10/2025 3:56 AM EDT [facility] Neutrophil % 59.1 42.7 - 76.0 % 04/10/2025 3:56 AM EDT [facility] Lymphocyte % 29.0 19.6 - 45.3 % 04/10/2025 3:56 AM EDT [facility] Monocyte % 8.1 5.0 - 12.0 % 04/10/2025 3:56 AM EDT [facility] Eosinophil % 3.2 0.3 - 6.2 % 04/10/2025 3:56 AM EDT [facility] Basophil % 0.4 0.0 - 1.5 % 04/10/2025 3:56 AM EDT [facility] Immature Grans % 0.2 0.0 - 0.5 % 04/10/2025 3:56 AM EDT [facility] Neutrophils, Absolute 5.67 1.70 - 7.00 10*3/mm3 04/10/2025 3:56 AM EDT [facility] Lymphocytes, Absolute 2.78 0.70 - 3.10 10*3/mm3 04/10/2025 3:56 AM EDT [facility] Monocytes, Absolute 0.78 0.10 - 0.90 10*3/mm3 04/10/2025 3:56 AM EDT [facility] Eosinophils, Absolute 0.31 0.00 - [...] t [facility]
[address] [place] [address], * (ABNORMAL) Basic Metabolic Panel (04/10/2025 3:46 AM EDT) [facility] [address] Glucose 125(H) 65 - 99 mg/dL 04/10/2025 4:20 AM T [facility] BUN 15.9 6.0 - 20.0 mg/dL 04/10/2025 4:20 AM [facility] Creatinine 0.77 0.76 - 1.27 mg/dL 04/10/2025 4:20 AM [facility] Sodium 137 136 - 145 mmol/L 04/10/2025 4:20 AM EDT [facility] Potassium 3.9 3.5 - 5.2 mmol/L 04/10/2025 4:20 AM EDT [facility] Chloride 102 98 - 107 mmol/L 04/10/2025 4:20 AM [facility] CO2 26.9 22.0 - 29.0 mmol/L 04/10/2025 4:20 AM [facility] Calcium 7.9(L) 8.6 - 10.5 mg/dL 04/10/2025 4:20 AM [facility] BUN/Creatinine Ratio 20.6 7.0 - 25.0 04/10/2025 4:20 AM [facility] Anion Gap 8.1 5.0 - 15.0 mmol/L 04/10/2025 4:20 AM [facility] eGFR 113.2 >60.0 mL/min/1.7 3 04/10/2025 4:20 AM [facility] Blood Venipuncture / Unknown 04/10/2025 3:46 AM EDT 04/10/2025 3:52 AM EDT [facility] - 04/10/2025 4:20 AM EDT [...] Álvarez LAB BLOOD ORDERABLES Final Resul t [facility]
[address] [place] [address], * Heparin Anti-Xa (04/10/2025 3:46 AM EDT) Heparin Anti-Xa (UFH) 0.35 0.30 - 0.70 IU/ml 04/10/2025 4:23 AM EDT [facility] Blood Venipuncture / Unknown 04/10/2025 3:46 AM EDT 04/10/2025 3:53 AM EDT [facility] LAB BLOOD ORDERABLES Final R esult Performing Organization Address City/[facility] Co de Phone Number [facility]
[address] [place] [address], * Heparin Anti-Xa (04/09/2025 10:05 AM EDT) [facility] [address] Heparin Anti-Xa (UFH) 0.36 0.30 - 0.70 IU/ml 04/09/2025 11:12 AM EDT [facility] Blood Venipuncture / Unknown 04/09/2025 10:05 AM EDT 04/09/2025 10:47 AM EDT [facility] LAB BLOOD ORDERABLES Final R esult Performing Organization Address City/[facility]/ZIP Co de Phone Number [facility]
[address] [place] [address], * (ABNORMAL) CBC Auto Differential (04/09/2025 4:18 [...] 33.0 pg [facility]2025 [facility] MCHC 32.2 31.5 - 35.7 g/dL 04/09/2025 4:50 [facility] RDW 12.8 12.3 - 15.4 % 04/09/2025 4:50 [facility] RDW-SD 39.9 37.0 - 54.0 fl 04/09/2025 4:50 [facility] MPV 10.0 6.0 - 12.0 fL 04/09/2025 4:50 [facility] Platelets 211 140 - 450 10*3/mm3 04/09/2025 4:50 AM [facility] Neutrophil % 74.8 42.7 - 76.0 % 04/09/2025 4:50 AM EDT [facility] Lymphocyte % 15.4(L) 19.6 - 45.3 % 04/09/2025 4:50 AM EDT [facility] Monocyte % 8.5 5.0 - 12.0 % 04/09/2025 4:50 AM EDT [facility] Eosinophil % 0.6 0.3 - 6.2 % 04/09/2025 4:50 AM EDT [facility] Basophil % 0.4 0.0 - 1.5 % 04/09/2025 4:50 AM EDT [facility] Immature Grans % 0.3 0.0 - 0.5 % 04/09/2025 4:50 AM EDT [facility] Neutrophils, Absolute 8.23(H) 1.70 - 7.00 10*3/mm3 04/09/2025 4:50 AM EDT [facility] Lymphocytes, Absolute 1.69 0.70 - 3.10 10*3/mm3 04/09/2025 4:50 AM EDT [facility] Monocytes, Absolute 0.94(H) 0.10 - 0.90 10*3/mm3 04/09/2025 4:50 AM EDT [facility] Eosinophils, Absolute 0.07 0.00 - 0.40 10*3/mm3 04/09/2025 4:50 AM EDT [facility]
[address] [place] [address], * Heparin Anti-Xa (04/09/2025 4:18 AM EDT) Heparin Anti-Xa (UFH) 0.41 0.30 - 0.70 IU/ml 04/09/2025 4:53 AM EDT [facility] Blood Venipuncture / Unknown 04/09/2025 4:18 AM EDT 04/09/2025 4:31 AM EDT Una Wheeleroy PharmD LAB BLOOD ORDERABLES Final R esult [facility]
[address] [place] [address], * (ABNORMAL) Basic Metabolic Panel (04/09/2025 4:18 [...] AM EDT 04/09/2025 4:29 AM EDT Narrative [facility] - 04/09/2025 5:33 AM EDT [...] City/[facility]/ZIP Co de Phone Number [facility]
[address] [place] [address], * Wound Culture - Swab, Leg, Right [...] Result [facility]
[address] [place] [address], [facility]
[address] [place] [address], * Anaerobic Culture - Swab, Leg, Right [...] Result [facility]
[address] [place] [address], * Scan Slide (04/08/2025 8:41 AM EDT) [...] [facility]
[address] [place] [address], * (ABNORMAL) CBC Auto Differential (04/08/2025 8:41 AM EDT) Pathologist [facility] WBC 10.07 3.40 - 10.80 10*3/mm3 04/08/2025 11:02 AM EDT [facility] RBC 5.01 4.14 - 5.80 10*6/mm3 04/08/2025 11:02 AM [facility] Hemoglobin 14.0 13.0 - 17.7 g/dL 04/08/2025 11:02 AM [facility] Hematocrit 42.7 37.5 - 51.0 % 04/08/2025 11:02 AM [facility] MCV 85.2 79.0 - 97.0 fL 04/08/2025 11:02 AM [facility] MCH 27.9 26.6 - 33.0 pg 04/08/2025 11:02 AM [facility] MCHC 32.8 31.5 - 35.7 g/dL 04/08/2025 11:02 AM [facility] RDW 12.6 12.3 - 15.4 % 04/08/2025 11:02 AM [facility] RDW-SD 38.9 37.0 - 54.0 fl 04/08/2025 11:02 AM [facility] MPV 11.0 6.0 - 12.0 fL 04/08/2025 11:02 AM [facility] Platelets 118(L) 140 - 450 10*3/mm3 04/08/2025 11:02 AM [facility] Neutrophil % 85.1(H) 42.7 - 76.0 % 04/08/2025 11:02 AM [facility] Lymphocyte % 9.3(L) 19.6 - 45.3 % 04/08/2025 11:02 AM [facility] Monocyte % 4.6(L) 5.0 - 12.0 % 04/08/2025 11:02 AM [facility] Eosinophil % 0.3 0.3 - 6.2 % 04/08/2025 11:02 AM [facility] Basophil % 0.2 0.0 - 1.5 % 04/08/2025 11:02 AM [facility] Immature Grans % 0.5 0.0 - 0.5 % 04/08/2025 11:02 AM EDT [facility] Neutrophils, Absolute 8.57(H) 1.70 - 7.00 10*3/mm3 04/08/2025 11:02 AM EDT [facility] Lymphocytes, Absolute 0.94 0.70 - 3.10 10*3/mm3 04/08/2025 11:02 AM EDT [facility] Monocytes, Absolute 0.46 0.10 - 0.90 10*3/mm3 04/08/2025 11:02 AM EDT [facility] Eosinophils, Absolute 0.03 0.00 - 0.40 10*3/mm3 04/08/2025 11:02 AM EDT [facility] Basophils, Absolute 0.02 0.00 - 0.20 10*3/mm3 04/08/2025 11:02 AM EDT [facility] Immature Grans, Absolute 0.05 0.00 [...] esult [facility]
[address] [place] [address], * (ABNORMAL) Basic Metabolic Panel (04/08/2025 8:41 [...] Jr., MD LAB BLOOD ORDERABLES nal Result [facility]
[address] [place] [address], * Heparin Anti-Xa (04/08/2025 8:41 AM EDT) Heparin Anti-Xa (UFH) 0.33 0.30 - 0.70 IU/ml 04/08/2025 9:40 AM EDT [facility] Blood Venipuncture / Unknown 04/08/2025 8:41 AM EDT 04/08/2025 9:10 AM EDT us Sushil Dean Jr., MD LAB BLOOD ORDERABLES Fi nal Result [facility]
[address] [place] [address], * FL C Arm During Surgery (04/07/2025 [...] City/[facility]/ZIP Co de Phone Number [facility]
[address] [place] [address], [facility]
[address] [place] [address], * Anaerobic Culture - Swab, Leg, Right (04/07/2025 9:14 PM EDT) Anaerobic Culture No anaerobes isolated at 5 days ALIZA 04/13/2025 7:21 AM EDT [facility] Swab Structure of right lower limb / Unknown Collection / Unknown 04/07/2025 9:14 PM EDT 04/08/2025 4:36 AM EDT Sushil Dean Jr., MD MICROBIOLOGY - GENERAL ORDERABLES Final Result Performing Organization Address [facility]/ZIP Co de Phone Number [facility]
[address] [place] [address], * Anaerobic Culture - Tissue, Leg (04/07/2025 9:13 PM EDT) Anaerobic Culture No anaerobes isolated at 5 days ALIZA 04/13/2025 7:21 AM EDT [facility] Tissue Lower limb structure / Unknown Collection / Unknown 04/07/2025 9:13 PM EDT 04/08/2025 4:54 AM EDT Jason Álvarez DO MICROBIOLOGY - GENERAL ORDERABLE S Final Result Performing Organization Address City/[facility]/ZIP Co de Phone Number [facility]
[address] [place] [address], * Tissue / Bone Culture - Tissue, [...] Result [facility]
[address] [facility] [address], [place] [phone] [facility]
[address] [place] [address], [place] [phone] * (ABNORMAL) Wound Culture - Swab, Leg, [...] ORDERABLES Final Result Performing Organization Address [facility] Co de Phone Number [facility]
[address] [place] [address], [facility]
[address] [place] [address], [place] [phone] * Anaerobic Culture - Swab, Leg, Right (04/07/2025 9:07 PM EDT) [facility] [address] Anaerobic Culture No anaerobes isolated at 5 days ALIZA 04/13/2025 7:21 AM EDT [facility] Swab Structure of right lower limb / Unknown Collection / Unknown 04/07/2025 9:07 PM EDT 04/08/2025 4:36 AM EDT Sushil Dean Jr., MD MICROBIOLOGY - GENERAL ORDERABLES Final Result Performing Organization Address [facility] Co de Phone Number [facility]
[address] [place] [address], * Heparin Anti-Xa (04/07/2025 9:10 AM EDT) [facility] [address] Heparin Anti-Xa (UFH) 0.30 0.30 - 0.70 IU/ml 04/07/2025 10:12 AM EDT [facility] Blood Venipuncture / Unknown 04/07/2025 9:10 AM EDT 04/07/2025 9:38 AM EDT Una LundbergD LAB BLOOD ORDERABLES Final R esult Performing Organization Address [facility] Co de Phone Number [facility]
[address] [place] [address], [place] [phone] * (ABNORMAL) CBC Auto Differential (04/07/2025 9:10 AM EDT) [facility] [address] WBC 8.63 3.40 - 10.80 10*3/mm3 04/07/2025 9:50 AM EDT [facility] RBC 5.23 4.14 - 5.80 10*6/mm3 04/07/2025 9:50 [facility] Hemoglobin 14.7 13.0 - 17.7 g/dL 04/07/2025 9:50 AM EDT [facility] Hematocrit 44.8 37.5 - 51.0 % 04/07/2025 9:50 AM EDT [facility] MCV 85.7 79.0 - 97.0 fL 04/07/2025 9:50 AM EDT [facility] MCH 28.1 26.6 - 33.0 pg 04/07/2025 9:50 [facility] MCHC 32.8 31.5 - 35.7 g/dL 04/07/2025 9:50 AM [facility] RDW 12.8 12.3 - 15.4 % 04/07/2025 9:50 AM [facility] RDW-SD 39.9 37.0 - 54.0 fl 04/07/2025 9:50 AM [facility] MPV 10.8 6.0 - 12.0 fL 04/07/2025 9:50 [facility] Platelets 149 140 - 450 10*3/mm3 04/07/2025 9:50 [facility] Neutrophil % 66.7 42.7 - 76.0 % 04/07/2025 9:50 AM EDT [facility] Lymphocyte % 20.5 19.6 - 45.3 % 04/07/2025 9:50 AM EDT [facility] Monocyte % 9.8 5.0 - 12.0 % 04/07/2025 9:50 AM EDT [facility] Eosinophil % 2.1 0.3 - 6.2 % 04/07/2025 9:50 AM EDT [facility] Basophil % 0.3 0.0 - 1.5 % 04/07/2025 9:50 AM EDT [facility] Immature Grans % 0.6(H) 0.0 - 0.5 % 04/07/2025 9:50 AM EDT [facility] Neutrophils, Absolute 5.75 1.70 - 7.00 10*3/mm3 04/07/2025 9:50 AM EDT [facility] Lymphocytes, Absolute 1.77 0.70 - 3.10 10*3/mm3 04/07/2025 9:50 AM EDT [facility] Monocytes, Absolute 0.85 0.10 - 0.90 10*3/mm3 04/07/2025 9:50 AM EDT [facility] Eosinophils, Absolute 0.18 0.00 - 0.40 10*3/mm3 04/07/2025 9:50 AM EDT [facility] Basophils, Absolute 0.03 0.00 - 0.20 10*3/mm3 04/07/2025 9:50 AM EDT [facility] Immature Grans, Absolute 0.05 0.00 - 0.05 10*3/mm3 04/07/2025 9:50 AM EDT [facility] nRBC 0.0 0.0 - 0.2 /100 WBC 04/07/2025 9:50 AM [facility] Blood Venipuncture / Unknown 04/07/2025 9:10 AM EDT 04/07/2025 9:38 AM EDT us Jason Álvarez DO LAB BLOOD ORDERABLES Final Resul t [facility]
[address] [place] [address], * (ABNORMAL) Basic Metabolic Panel (04/07/2025 9:10 AM EDT) Glucose 112(H) 65 - 99 mg/dL 04/07/2025 10:19 AM EDT [facility] BUN 13.1 6.0 - 20.0 mg/dL 04/07/2025 10:19 AM [facility] Creatinine 0.77 0.76 - 1.27 mg/dL 04/07/2025 10:19 AM [facility] Sodium 139 136 - 145 mmol/L 04/07/2025 10:19 AM [facility] Potassium 4.2 3.5 - 5.2 mmol/L 04/07/2025 10:19 AM [facility] Comment:Specimen hemolyzed. Result may be falsely elevated. Chloride 105 98 - 107 mmol/L 04/07/2025 10:19 AM [facility] CO2 24.8 22.0 - 29.0 mmol/L 04/07/2025 10:19 AM [facility] Calcium 8.6 8.6 - 10.5 mg/dL 04/07/2025 10:19 AM [facility] BUN/Creatinine Ratio 17.0 7.0 - 25.0 04/07/2025 10:19 AM [facility] Anion Gap 9.2 5.0 - 15.0 mmol/L 04/07/2025 10:19 AM [facility] eGFR 113.2 >60.0 mL/min/1.7 3 04/07/2025 10:19 AM [facility] Blood Venipuncture / Unknown 04/07/2025 9:10 AM EDT 04/07/2025 9:38 AM [facility] - 04/07/2025 10:19 AM EDT [...] t [facility]
[address] [place] [id number], * MRI Tibia Fibula Right With & [...] Chitra 04/07/2025 9:58 AM EDT Workstation ID: [id number] Narrative 04/07/2025 9:58 AM EDT MRI TIBIA [...] [place] 04/07/2025 9:58 AM EDT Workstation ID: [id number] us Sushil Dean Jr., MD IMG MRI ORDERABLES Mary Beth l Result * Heparin Anti-Xa (04/07/2025 1:42 AM EDT) Pathologist [facility] Heparin Anti-Xa (UFH) 0.38 0.30 - 0.70 IU/ml 04/07/2025 2:14 AM EDT [facility] Blood Venipuncture / Unknown 04/07/2025 1:42 AM EDT 04/07/2025 1:54 AM EDT Chelsie Navarretesapna [facility] LAB BLOOD ORDERABLES Final R esult [facility]
[address] [place] [address], * Heparin Anti-Xa (04/06/2025 7:16 PM EDT) [facility] Heparin Anti-Xa (UFH) 0.33 0.30 - 0.70 IU/ml 04/06/2025 7:50 PM EDT [facility] Blood Venipuncture / Unknown 04/06/2025 7:16 PM EDT 04/06/2025 7:35 PM EDT Cherri Beatty [facility] LAB BLOOD ORDERABLES Final Res ult [facility]
[address] [place] [address], * Potassium (04/06/2025 7:16 PM EDT) [facility] Potassium 4.0 3.5 - 5.2 mmol/L 04/06/2025 7:53 PM EDT [facility] Blood Venipuncture / Unknown 04/06/2025 7:16 PM EDT 04/06/2025 7:35 PM EDT Jason Álvarez DO LAB BLOOD ORDERABLES Final Resul t Performing Organization Address City/[facility]/ZIP Co de Phone Number [facility]
[address] [place] [address], * (ABNORMAL) Heparin Anti-Xa (04/06/2025 12:36 PM EDT) Heparin Anti-Xa (UFH) 0.24(L) 0.30 - 0.70 IU/ml 04/06/2025 1:23 PM EDT [facility] Blood Venipuncture / Unknown 04/06/2025 12:36 PM EDT 04/06/2025 1:07 PM EDT Una Perla PharmD LAB BLOOD ORDERABLES Final R esult Performing Organization Address City/[facility] Co de Phone Number [facility]
[address] [place] [address], * (ABNORMAL) Heparin Anti-Xa (04/06/2025 3:42 AM EDT) Heparin Anti-Xa (UFH) 0.25(L) 0.30 - 0.70 IU/ml 04/06/2025 5:30 AM EDT [facility] Blood Venipuncture / Unknown 04/06/2025 3:42 AM EDT 04/06/2025 4:59 AM EDT Chelsie Turpin [facility] LAB BLOOD ORDERABLES Final R esult Performing Organization Address City/[facility]/ZIP Co de Phone Number [facility]
[address] [place] [address], * (ABNORMAL) Basic Metabolic Panel (04/06/2025 3:42 AM EDT) Glucose 94 65 - 99 mg/dL 04/06/2025 5:59 AM EDT [facility] BUN 12.8 6.0 - 20.0 mg/dL 04/06/2025 5:59 AM T [facility] Creatinine [...] 8.6 - 10.5 mg/dL 04/06/2025 5:59 AM [facility] BUN/Creatinine Ratio 16.0 7.0 - 25.0 04/06/2025 5:59 AM EDT [facility] Anion Gap 10.8 5.0 - 15.0 mmol/L 04/06/2025 5:59 AM [facility] eGFR 111.9 >60.0 mL/min/1.7 3 04/06/2025 5:59 AM [facility] Blood Venipuncture / Unknown 04/06/2025 3:42 AM EDT 04/06/2025 5:20 AM EDT [facility] - 04/06/2025 5:59 AM EDT [...] [facility]
[address] [place] [address], * (ABNORMAL) CBC Auto Differential (04/06/2025 3:41 [...] - 97.0 fL 04/06/2025 5:04 AM EDT [facility] MCH 27.4 26.6 - 33.0 pg 04/06/2025 5:04 AM EDT [facility] MCHC 31.8 31.5 - 35.7 g/dL 04/06/2025 5:04 AM EDT [facility] RDW 12.8 12.3 - 15.4 % 04/06/2025 5:04 AM EDT [facility] RDW-SD 40.0 37.0 - 54.0 fl 04/06/2025 5:04 AM EDT [facility] MPV 11.7 6.0 - 12.0 fL 04/06/2025 5:04 AM EDT [facility] Platelets 115(L) 140 - 450 10*3/mm3 04/06/2025 5:04 AM EDT [facility] Neutrophil % 65.3 42.7 - 76.0 % 04/06/2025 5:04 AM EDT [facility] Lymphocyte % 20.5 19.6 - 45.3 % 04/06/2025 5:04 AM EDT [facility] Monocyte % 11.8 5.0 - 12.0 % 04/06/2025 5:04 AM EDT [facility] Eosinophil % 1.8 0.3 - 6.2 % 04/06/2025 5:04 AM EDT [facility] Basophil % 0.3 0.0 - 1.5 % 04/06/2025 5:04 AM EDT [facility] Immature Grans % 0.3 0.0 - 0.5 % 04/06/2025 5:04 AM EDT [facility] Neutrophils, Absolute 7.09(H) 1.70 - 7.00 10*3/mm3 04/06/2025 5:04 AM EDT [facility] Lymphocytes, Absolute 2.23 0.70 - 3.10 10*3/mm3 04/06/2025 5:04 AM EDT [facility] Monocytes, Absolute 1.28(H) 0.10 - [...] t [facility]
[address] [place] [address], * Heparin Anti-Xa (04/05/2025 8:43 PM EDT) Heparin Anti-Xa ([facility]) 0.38 0.30 - 0.70 IU/ml 04/05/2025 9:09 PM EDT [facility] Blood Venipuncture / Unknown 04/05/2025 8:43 PM EDT 04/05/2025 8:55 PM EDT Cherri Beatty [facility] BLOOD ORDERABLES Final Res ult [facility] H[facility]
[address] [place] [address], * CK (04/05/2025 12:15 PM EDT) Pathologist [facility] Creatine Kinase 140 20 - 200 U/L 04/05/2025 1:31 PM EDT [facility] Blood Venipuncture / Unknown 04/05/2025 12:15 PM EDT 04/05/2025 1:03 PM EDT Carlton Mead MD LAB BLOOD ORDERABLES Final R esult [facility]
[address] [place] [address], * (ABNORMAL) Heparin Anti-Xa (04/05/2025 12:15 PM EDT) Heparin Anti-Xa (UFH) 0.17(L) 0.30 - 0.70 IU/ml 04/05/2025 1:21 PM EDT [facility] Blood Venipuncture / Unknown 04/05/2025 12:15 PM EDT 04/05/2025 1:04 PM EDT us [employer] LAB BLOOD ORDERABLES Final R esult [facility]
[address] [place] [address], * (ABNORMAL) aPTT (04/05/2025 3:54 AM EDT) [...] 0.5 U/ml are 60 to 70 seconds. [employer] LAB BLOOD ORDERABLES Final R esult Performing Organization Address [facility] Co de Phone Number [facility]
[address] [place] [address], * Heparin Anti-Xa (04/05/2025 3:54 AM EDT) Pathologist [facility] Heparin Anti-Xa (UFH) 0.30 0.30 - 0.70 IU/ml 04/05/2025 4:32 AM EDT [facility] Blood Venipuncture / Unknown 04/05/2025 3:54 AM EDT 04/05/2025 4:15 AM EDT [employer] LAB BLOOD ORDERABLES Final R esult Performing Organization Address City/[facility]/ZIP Co de Phone Number [facility]
[address] [place] [address], [place] [phone] * (ABNORMAL) CBC Auto Differential (04/05/2025 3:54 AM EDT) [facility] [address] WBC 11.18(H) 3.40 - 10.80 10*3/mm3 [...] - 35.7 g/dL 04/05/2025 4:20 AM EDT [facility] RDW 12.9 12.3 - 15.4 % 04/05/2025 4:20 AM EDT [facility] RDW-SD 39.7 37.0 - 54.0 fl 04/05/2025 4:20 AM EDT [facility] MPV 10.2 6.0 - 12.0 fL 04/05/2025 4:20 AM EDT [facility] Platelets 160 140 - 450 10*3/mm3 04/05/2025 4:20 AM EDT [facility] Neutrophil % 73.5 42.7 - 76.0 % 04/05/2025 4:20 AM EDT [facility] Lymphocyte % 14.0(L) 19.6 - 45.3 % 04/05/2025 4:20 AM EDT [facility] Monocyte % 11.0 5.0 - 12.0 % 04/05/2025 4:20 AM EDT [facility] Eosinophil % 0.8 0.3 - 6.2 % 04/05/2025 4:20 AM EDT [facility] Basophil % 0.3 0.0 - 1.5 % 04/05/2025 4:20 AM EDT [facility] Immature Grans % 0.4 0.0 - 0.5 % 04/05/2025 4:20 AM EDT [facility] Neutrophils, Absolute 8.23(H) 1.70 - 7.00 10*3/mm3 04/05/2025 4:20 AM EDT [facility] Lymphocytes, Absolute 1.56 0.70 - 3.10 10*3/mm3 04/05/2025 4:20 AM EDT [facility] Monocytes, Absolute 1.23(H) 0.10 - 0.90 10*3/mm3 04/05/2025 4:20 AM EDT [facility] Eosinophils, Absolute 0.09 0.00 - 0.40 10*3/mm3 04/05/2025 4:20 AM EDT [facility] esult [facility]
[address] [place] [address], * (ABNORMAL) Basic Metabolic Panel (04/05/2025 3:54 AM EDT) [facility] [address] Glucose 152(H) 65 - 99 mg/dL 04/05/2025 4:40 AM [facility] BUN 17.3 6.0 - 20.0 mg/dL 04/05/2025 4:40 AM [facility] Creatinine 0.92 0.76 - 1.27 mg/dL 04/05/2025 4:40 AM [facility] Sodium 136 136 - 145 mmol/L 04/05/2025 4:40 AM [facility] Potassium 3.9 3.5 - 5.2 mmol/L 04/05/2025 4:40 AM T [facility] Chloride 103 98 - 107 mmol/L 04/05/2025 4:40 AM [facility] CO2 24.0 22.0 - 29.0 mmol/L 04/05/2025 4:40 AM [facility] Calcium 7.8(L) 8.6 - 10.5 mg/dL 04/05/2025 4:40 AM [facility] BUN/Creatinine Ratio 18.8 7.0 - 25.0 04/05/2025 4:40 AM [facility] Anion Gap 9.0 5.0 - 15.0 mmol/L 04/05/2025 4:40 AM [facility] eGFR 105.2 >60.0 mL/min/1.7 3 04/05/2025 4:40 AM [facility] Blood Venipuncture / Unknown 04/05/2025 3:54 AM EDT 04/05/2025 4:15 AM [facility] LABORATORY - 04/05/2025 4:40 AM [...] ORDERABLES Final Re sult Performing Organization Address City/[facility]/ZIP Co de Phone Number [facility]
[address] [place] [address], * (ABNORMAL) aPTT (04/05/2025 12:18 AM EDT) PTT 33.6(L) 60.0 - 90.0 seconds 04/05/2025 12:53 AM EDT [facility] Blood Venipuncture / Unknown 04/05/2025 12:18 AM EDT 04/05/2025 12:37 AM EDT Narrative [facility] - 04/05/2025 12:53 AM EDT PTT = The equivalent PTT values for the therapeutic range of heparin levels at 0.3 to 0.5 U/ml are 60 to 70 seconds. [employer] LAB BLOOD ORDERABLES Final R esult Performing Organization Address [facility] Co de Phone Number [facility]
[address] [place] [address], * (ABNORMAL) Protime-INR (04/05/2025 12:18 AM EDT) [...] City/[facility]/ZIP Co de Phone Number [facility]
[address] [place] [address], * Heparin Anti-Xa (04/05/2025 12:18 AM EDT) Heparin Anti-Xa (UFH) 0.39 0.30 - 0.70 IU/ml 04/05/2025 12:54 AM EDT [facility] Blood Venipuncture / Unknown 04/05/2025 12:18 AM EDT 04/05/2025 12:37 AM EDT [employer] LAB BLOOD ORDERABLES Final R esult [facility]
[address] [place] [address], * MRI Tibia Fibula Right With & [...] MD 04/04/2025 11:00 PM EDT Workstation ID: [id number] Narrative 04/04/2025 11:00 PM EDT MRI TIBIA [...] MD 04/04/2025 11:00 PM EDT Workstation ID: [id number] Leonora Shepherd MD IMG MRI ORDERABLES Final Resu lt * POC Creatinine (04/04/2025 2:49 PM EDT) Pathologist [facility] Creatinine 1.10 0.60 - 1.30 mg/dL 04/07/2025 7:14 PM EDT [facility] Comment:Serial Number: [id number] 7Operator: [id number] Venous Blood 04/04/2025 2:49 PM EDT 04/07/2025 7:14 PM EDT Jason Álvarez DO POINT OF CARE TEST ORDERABLES Fi nal Result [facility]
[address] [place] [address], * (ABNORMAL) CBC Auto Differential (04/04/2025 2:47 PM EDT) Pathologist [facility] WBC 12.72(H) 3.40 - 10.80 10*3/mm3 04/04/2025 [...] EDT 04/04/2025 2:52 PM EDT Mario Ortiz [facility] LAB BLOOD ORDERABLES Fin al Result [facility]
[address] [place] [address], * (ABNORMAL) C-reactive Protein (04/04/2025 2:47 PM EDT) C-Reactive Protein 8.57(H) 0.00 - 0.50 mg/dL 04/04/2025 3:26 PM EDT [facility] Blood Venipuncture / Unknown 04/04/2025 2:47 PM EDT 04/04/2025 2:52 PM EDT [facility] Fin al Result [facility]
[address] [place] [address], * (ABNORMAL) Sedimentation Rate (04/04/2025 2:47 PM EDT) Sed Rate 51(H) 0 - 15 mm/hr 04/04/2025 3:06 PM EDT [facility] Blood Venipuncture / Unknown 04/04/2025 2:47 PM EDT 04/04/2025 2:52 PM EDT Mario Harperbenlennox DO LAB BLOOD ORDERABLES Fin al Result [facility]
[address] [place] [address], * Comprehensive Metabolic Panel (04/04/2025 2:47 PM EDT) [facility] Signature Glucose 90 65 - 99 [...] - 117 U/L 04/04/2025 3:26 PM EDT [facility] Total Bilirubin 1.0 0.0 - 1.2 mg/dL 04/04/2025 3:26 PM EDT [facility] Globulin 3.2 gm/dL 04/04/2025 3:26 PM EDT [facility] Comment:Calculated Result A/G Ratio 1.3 g/dL 04/04/2025 3:26 PM EDT [facility] BUN/Creatinine Ratio 19.5 7.0 - 25.0 04/04/2025 3:26 PM EDT [facility] Anion Gap 10.7 5.0 - 15.0 mmol/L 04/04/2025 3:26 PM EDT [facility] eGFR 102.5 >60.0 mL/min/1.7 3 04/04/2025 3:26 PM EDT [facility] Blood Venipuncture / Unknown 04/04/2025 2:47 PM EDT 04/04/2025 2:52 PM EDT [facility] LABORATORY - 04/04/2025 3:26 PM EDT [...] Result [facility]
[address] [id number], documented in this encounter Visit Diagnoses Diagnosis [...] BPA Driven Protocol Open Order & Select [facility] Electrolyte Replacement Protocol Algorithm to View [...] BPA Driven Protocol Open Order & Select [facility] Electrolyte Replacement Protocol Algorithm to View [...] BPA Driven Protocol Open Order & Select [facility] Electrolyte Replacement Protocol Algorithm to View [...] Hart, RN)2030 (Given - Provider: Alberto Dillon, UL) 100 (Given - Provider: Marguerite Wakefield RN) [...] disposal. 0831 (Given - Provider: Amber Salazar, PRUNER)194 (Given - Provider: Anahy Marcelino, KELL)2129 (Canceled Entry - Provider: Anahy Marcelino RRT - Comment: previously given) 0837 (Given - Provider: Amber Salazar, PRUNER)2006 (Given - Provider: Loree Reese, PRUNER)213 (Canceled Entry - Provider: Loree Reese RRT) [...] for a lower pain scale. ([facility]) If given for pain, use the following [...] Continuous Medication Order 04/09/2025 04/10/2025 04/11/2025 heparin 44187 units/250 mL (100 units/mL) in 0.45 % [...] RN) 0109 (Given - Provider: Alberto Dillon, UL)0655 (Given - Provider: Alberto Dillon, RN)1414 (Given - Provider: Shirley Hart, LU)2124 (Given - Provider: Alberto Dillon, RN) 1003 (Given - Provider: Marguerite Wakefield, LU) Magnesium Standard Dose Replacement - Follow Nurse / BPA Driven Protocol Open Order & Select [facility] Electrolyte Replacement Protocol Algorithm to View [...] BPA Driven Protocol Open Order & Select [facility] Electrolyte Replacement Protocol Algorithm to View [...] BPA Driven Protocol Open Order & Select [facility] Electrolyte Replacement Protocol Algorithm to View [...] documented as of this encounter Care Teams Postal Superintendent Relationship Specialty Start Date End Date Provider, [place] [address] PCP - General 05/09/23 documented as of this encounter
--- OUTSIDE RECORDS SUMMARY | 2025-04-08 15:34 | XMS_ITS | Encounter Summary ---
Author Organization [facility] Address [address] [place] [address] Care Team Providers Care Mending Carrier Name Role Phone Provider, No Known Primary Care Provider Unavail able Reason for Visit * Auth/Cert Specialty Diagnoses / Procedures Referred By Bulmaro muniz Referred To Contact Diagnoses Right BKA infection Referral ID Status Reason Start Date Expiration Date Visits Re quested Visits Authorized [id number] 1 1 Encounter Details Date Type Department Care Team (Late st Contact Info) Description 04/08/2025 3:34 PM EDT Anesthesia Event [facility] OR [address] [place] [address] Ulises Hoffman MD [address] [place] [address] Jairo Brooks MD [address] [place] [address] Anesthesia Record Procedure Summary Procedure Name Responsible [...] 0.6 oz pur e alcohol) [facility] Utilities Answer Date Recorded In the past 12 months has [employer], oil, or water [employer] threatened to shut off services in your [...] Date: 04/08/25 Room / Location: [facility] OR [address] [place] [address] [facility] [place] Anesthesia Start: 1533 Anesthesia Stop: [...] ROS Abdominal Substance History - negative use [employer] [employer] LAW CLERK negative hvac project manager ROS Other Anesthesia Plan ASA 3 [...] documented as of this encounter Care Teams Mending Carrier Relationship Specialty Start Date End Date Provider, [place] [address] PCP - General 05/09/23 documented as of this encounter
--- OUTSIDE RECORDS SUMMARY | 2025-04-14 09:54 | XMS_ITS | Patient Health Record ---
[facility] [address] [facility] [place] [id number] Care Team Providers Care Wood Fuel Pelletizer Name Role Phone Zeeshan Salazar Primary Care Provider [phone] Allergies No Known Allergies Medications Medication SIG [...] W/U Status Risk Notes Problem Essential hypertension (82248274) HTN [Hypertension] (401.9) Active confirmed appears resolved Problem Hypothyroidism (27520748) Hypothyroidism NOS (244.9) Active confirmed Problem Hyperlipidemia (62960537) Hyperlipidemia (272.4) Active confirmed Problem Constipation (44486499) Constipation, unspecified constipation type (K59.00) Active confirmed Problem History of pulmonary embolism on long-term anticoagulation therapy (54203013870160616 ) Hx pulmonary embolism (Z86.711) Active confirmed Problem Long-term current use of anticoagulant (720577263) Current use of fpc anticoagulation (Z79.01) Active confirmed Problem Adjustment disorder with anxious mood (79309748) Adjustment disorder with anxious mood (F43.22) Active confirmed Problem History of pulmonary embolus (144353293) History of pulmonary embolus (PE) (Z86.711) Active confirmed Problem Methicillin resistant Staphylococcus aureus infection (disorder) (639975793) Infection of wound due to methicillin resistant Staphylococcus aureus (MRSA) (A49.02) Active confirmed Problem Arthritis of knee (851333051) Arthritis of knee (M17.10) Active confirmed Problem Amputated below knee (366179244) Status post below knee amputation of right lower extremity (Z89.511) Active confirmed Problem Gastroesophageal reflux disease (429176047) Gastroesophageal reflux disease, unspecified whether esophagitis present [...]
--- OUTSIDE RECORDS SUMMARY | 2025-04-14 09:54 | XMS_ITS | Clinical Summary ---
Author Organization [facility] Address [address] [facility] [address] [place] [address] Phone Care Team Providers Care Credit Control Manager Name Role Phone Unavailable Unavailable Conditions or Problems No information available. Medications No information available. Medications Administered No information available. Allergies, Adverse Reactions, Alerts No information available. Results No information available. Plan of Care No information available. Procedures No information available. Vital Signs No information available. Immunizations No information available. Advance Directives No information available.
--- OUTSIDE RECORDS SUMMARY | 2025-04-14 09:57 | XMS_ITS | Encounter Summary ---
Author Organization Healthcare Address [address] [place] [address] Care Team Providers Care Executive Coach Name Role Phone Unavailable Primary Care Provider Unavailabl e Encounter Details Date Type Department Care Team (Late st Contact Info) Description 05/13/2023 Lab Requisition [facility] [address] [place] [address] Sushil Dean MD [address] [facility] [place] [address] Encounter for general adult medical examination without [...] O RDERABLES Final Result Performing Organization Address [facility] Co de Phone Number [facility] [address] [place] [address] * Anaerobic Culture (05/13/2023 9:17 AM EDT) Culture No growth at day 4 05/20/2023 10:35 AM EST [facility] Bone 05/13/2023 9:17 AM EDT 05/13/2023 1:25 PM EDT us Sushil Dean MD LAB MICROBIOLOGY - GENERAL O RDERABLES Final Result Performing Organization Address [facility] de Phone Number [facility] [address] [place] [address] * Bone Culture and Gram Stain (05/13/2023 [...] O RDERABLES Final Result Performing Organization Address [facility] de Phone Number [facility] [address] [place] [address] documented in this encounter Visit Diagnoses Diagnosis Encounter for general adult medical examination without abnormal findings documented in this encounter
--- OUTSIDE RECORDS SUMMARY | 2025-04-14 09:57 | XMS_ITS | Encounter Summary ---
Author Organization Healthcare Address [address] [place] [address] Care Team Providers Care Sales Consultant Residential Manager Name Role Phone Unavailable Primary Care Provider Unavailabl e Encounter Details Date Type Department Care Team (Late st Contact Info) Description 10/01/2022 Lab Requisition [facility] [address] [place] [address] Sushil Dean MD [address] [facility] [place] [address] Encounter for general adult medical examination without [...] has been identified using the FDA Approved VibeWriteyper CA System The organism value for this [...] 10/04/2022 2:17 PM EDT Refer to culture [id number] FOR SUSCEPTIBILITIES ON NEELIMA ALBICANS us Sushil Dean MD LAB MICROBIOLOGY - GENERAL O RDERABLES Final Result [facility] [address] [place] [address] documented in this encounter Visit Diagnoses Diagnosis Encounter for general adult medical examination without abnormal findings documented in this encounter
--- OUTSIDE RECORDS SUMMARY | 2025-04-14 09:57 | XMS_ITS | Encounter Summary ---
Author Organization [facility] Address [address] [place] [address] Care Team Providers Care Teacher Aide Name Role Phone Unavailable Primary Care Provider Unavailabl e Encounter Details Date Type Department Care Team (Late st Contact Info) Description 10/03/2022 Lab Requisition [facility] [address] [place] [address] Dalila Cox MD [address] [place], [place] [id number] Encounter for general adult medical examination without [...] Culture Neelima albicans(A) 10/05/2022 11:58 AM EDT [facility] Comment: This result was determined by MALDI tof Mass spectrometry. This assay was developed and its performance characteristics determined by [facility] as appropriate for clinical purposes. [...] Edited Result - Final [facility] [address] [place] [address] documented in this encounter Visit Diagnoses Diagnosis Encounter for general adult medical examination without abnormal findings documented in this encounter
--- OUTSIDE RECORDS SUMMARY | 2025-04-14 09:57 | XMS_ITS | Encounter Summary ---
Author Organization [facility] Address [address] [place] [address] Care Team Providers Care Parts Salesman Name Role Phone Provider, No Known Primary [...] 2:25 PM EDT Cherri Grimm RN * [place] Suicide Severity Rating Scale (Screener/Recent Self-Report) Question [...] documented as of this encounter Care Teams Parts Salesman Relationship Specialty Start Date End Date Provider, No Known [facility] [place] [address] PCP - General 05/09/23 documented as of this encounter
--- OUTSIDE RECORDS SUMMARY | 2025-04-14 09:57 | XMS_ITS | Clinical Summary ---
Author Organization [facility] Address [address] [place] [address] Care Team Providers Care Board Design Engineer Name Role Phone Provider, No Known [...] Discontinu ed(Stop Taking at Discharge) Lactobacillus-I nulin ([facility]) capsule Take 200 mg by [...] Description 04/08/2025 3:34 PM EDT Anesthesia Event [facility] [address] [place] [address] Ulises Hoffman MD Wells, Jeremy B., MD 04/08/2025 2:45 PM EDT - 04/08/2025 4:04 PM EDT Surgery [facility] OR [address] [place] [address] Sushil Dean Jr., MD LEG DEBRIDEMENT AND IRRIGATION 04/07/2025 8:36 PM EDT Anesthesia Event [facility] OR [address] [place] [address] Luci Alonso DO 04/07/2025 6:00 PM EDT - 04/07/2025 6:52 PM EDT Surgery [facility] OR [address] [place] [address] Sushil Dean Jr., MD LEG DEBRIDEMENT, IRRIGATION 04/04/2025 4:10 PM EDT - 04/11/2025 1:58 PM EDT Hospital Encounter [facility] 5G [address] [place] [address] Mario Crowley DO Anderson, Laurie, MD Gay, [...] Recorded In the past 12 months has TVbeat, gas, oil, or water [employer] threatened to shut off services in your [...] this topic Medical Devices Implanted Type Area Russian History Professor Device Identifier Shelf Expiration Date Model / Serial / Lot Dev Wnd/Cls Contrl Tiss Stratafix Spiral Pls Pds Ct1 0 22cm - [id number] Implanted:Qty: 1 on 04/08/2025 by Sushil Dean Jr., MD at [facility] Implant Right: Leg [employer] 12/07/2025 [id number] / / [id number] Procedures Procedure Name Priority [...] 3:4 0 PM EDT Right BKA infection MO SEC ABDOMINAL WALL SUTURE EVISCERATION/DEHSN 04/08/2025 3:20 [...] resultswithin the time period is included. Pathologist [facility] WBC 7.87 3.40 - 10.80 10*3/mm3 04/11/2025 4:02 AM EDT [facility] RBC 4.70 4.14 - 5.80 10*6/mm3 04/11/2025 4:02 AM EDT [facility] Hemoglobin 12.8(L) 13.0 - 17.7 g/dL 04/11/2025 4:02 AM EDT [facility] Hematocrit 40.5 37.5 - 51.0 % 04/11/2025 4:02 AM EDT [facility] MCV 86.2 79.0 - 97.0 fL 04/11/2025 4:02 AM EDT [facility] MCH 27.2 26.6 - 33.0 pg 04/11/2025 4:02 AM EDT [facility] MCHC 31.6 31.5 - 35.7 g/dL 04/11/2025 4:02 AM EDT [facility] RDW 12.9 12.3 - 15.4 % 04/11/2025 4:02 AM EDT [facility] RDW-SD 40.5 37.0 - 54.0 fl 04/11/2025 4:02 AM EDT [facility] MPV 9.2 6.0 - 12.0 fL 04/11/2025 4:02 AM EDT [facility] Platelets 267 140 - 450 10*3/mm3 04/11/2025 4:02 AM EDT [facility] Neutrophil % 59.5 42.7 - 76.0 % 04/11/2025 4:02 AM EDT [facility] Lymphocyte % 26.3 19.6 - 45.3 % 04/11/2025 4:02 AM EDT [facility] Monocyte % 9.3 5.0 - 12.0 % 04/11/2025 4:02 AM [facility] Eosinophil % 4.1 0.3 - 6.2 % 04/[facility] Basophil % 0.4 0.0 - 1.5 % 04/11/2025 4:02 AM [facility] Immature Grans % 0.4 0.0 - 0.5 % 04/11/2025 4:02 AM [facility] Neutrophils, Absolute 4.69 1.70 - 7.00 10*3/mm3 04/11/2025 4:02 AM [facility] Lymphocytes, Absolute 2.07 0.70 - 3.10 10*3/mm3 04/11/2025 4:02 AM [facility] Monocytes, Absolute 0.73 0.10 - 0.90 10*3/mm3 04/11/2025 4:02 AM [facility] Eosinophils, Absolute 0.32 0.00 - 0.40 10*3/mm3 04/11/2025 4:02 AM [facility] Basophils, Absolute 0.03 0.00 - 0.20 10*3/mm3 04/11/2025 4:02 AM [facility] Immature Grans, Absolute 0.03 0.00 - 0.05 10*3/mm3 04/11/2025 4:02 AM [facility] nRBC 0.0 0.0 - 0.2 /100 WBC 04/11/2025 4:02 AM [facility] Blood Venipuncture / Unknown 04/11/2025 3:40 AM EDT 04/11/2025 3:59 AM EDT us Sushil Dean Jr., MD LAB BLOOD ORDERABLES Fi nal Result [facility]
[address] [place] [address], * (ABNORMAL) Comprehensive Metabolic Panel (04/11/2025 3:40 AM EDT) Only the most recent of2 resultswithin the time period is included. Glucose 108(H) 65 - 99 mg/dL 04/11/2025 4:19 AM EDT [facility] BUN 12.5 6.0 - 20.0 mg/dL 04/11/2025 4:19 AM EDT [facility] Creatinine 0.68(L) 0.76 - 1.27 mg/dL 04/11/2025 4:19 AM EDT [facility] Sodium 140 136 - 145 mmol/L 04/11/2025 4:19 AM EDT [facility] Potassium 3.8 3.5 - 5.2 mmol/L 04/11/2025 4:19 AM EDT [facility] Chloride 105 98 - 107 mmol/L 04/11/2025 4:19 AM EDT [facility] CO2 28.2 22.0 - 29.0 mmol/L 04/11/2025 4:19 AM EDT [facility] Calcium 8.2(L) 8.6 - 10.5 mg/dL 04/11/2025 4:19 AM EDT [facility] Total Protein 6.1 6.0 - 8.5 g/dL 04/11/2025 4:19 AM EDT [facility] Albumin 3.1(L) 3.5 - 5.2 g/dL 04/11/2025 4:19 AM EDT [facility] ALT (SGPT) 52(H) 1 - 41 U/L 04/11/2025 4:19 AM EDT [facility] AST (SGOT) 40 1 - 40 U/L 04/11/2025 4:19 AM EDT [facility] Alkaline Phosphatase 99 39 - 117 U/L 04/11/2025 4:19 AM EDT [facility] Total Bilirubin 0.2 0.0 - 1.2 mg/dL 04/11/2025 4:19 AM EDT [facility] Globulin 3.0 gm/dL 04/11/2025 4:19 AM EDT [facility] Comment:Calculated Result A/G Ratio 1.0 g/dL 04/11/2025 4:19 AM EDT [facility] BUN/Creatinine Ratio 18.4 7.0 - 25.0 04/11/2025 4:19 AM EDT [facility] Anion Gap 6.8 5.0 - 15.0 mmol/L 04/11/2025 4:19 AM EDT [facility] eGFR 117.5 >60.0 mL/min/1.7 3 04/11/2025 4:19 AM EDT [facility] Blood Venipuncture / Unknown 04/11/2025 3:40 AM EDT 04/11/2025 3:56 AM EDT Narrative [facility] - 04/11/2025 4:19 AM EDT [...] Hill APRN LAB BLOOD ORDERABLES Final Result [facility]
[address] [place] [address], * Heparin Anti-Xa (04/10/2025 3:46 AM EDT) Only the most recent of13 resultswithin the time period is included. Pathologist [facility] Heparin Anti-Xa (UFH) 0.35 0.30 - 0.70 IU/ml 04/10/2025 4:23 AM EDT [facility] Blood Venipuncture / Unknown 04/10/2025 3:46 AM EDT 04/10/2025 3:53 AM EDT Larisa Hamilton [facility] LAB BLOOD ORDERABLES Final R esult [facility]
[address] [place] [address], * (ABNORMAL) Basic Metabolic Panel (04/10/2025 3:46 AM EDT) Only the most recent of6 resultswithin the time period is included. Pathologist [facility] Glucose 125(H) 65 - 99 mg/dL 04/10/2025 4:20 AM EDT [facility] BUN 15.9 6.0 - 20.0 mg/dL 04/10/2025 4:20 AM EDT [facility] Creatinine 0.77 0.76 - 1.27 mg/dL 04/10/2025 4:20 AM EDT [facility] Sodium 137 136 - 145 mmol/L 04/10/2025 4:20 AM EDT [facility] Potassium 3.9 3.5 - 5.2 mmol/L 04/10/2025 4:20 AM EDT [facility] Chloride 102 98 - 107 mmol/L 04/10/2025 4:20 AM EDT [facility] CO2 26.9 22.0 - 29.0 mmol/L 04/10/2025 4:20 AM EDT [facility] Calcium 7.9(L) 8.6 - 10.5 mg/dL 04/10/2025 4:20 AM EDT [facility] BUN/Creatinine Ratio 20.6 7.0 - 25.0 04/10/2025 4:20 AM EDT [facility] Anion Gap 8.1 5.0 - 15.0 mmol/L 04/10/2025 4:20 AM EDT [facility] eGFR 113.2 >60.0 mL/min/1.7 3 04/10/2025 4:20 AM EDT [facility] Blood Venipuncture / Unknown 04/10/2025 3:46 AM EDT 04/10/2025 3:52 AM EDT Narrative [facility] - 04/10/2025 4:20 AM [...] DO LAB BLOOD ORDERABLES Final Resul t [facility]
[address] [place] [address], * Wound Culture - Swab, Leg, Right (04/08/2025 3:40 PM EDT) Only the most recent of3 resultswithin the time period is included. Wound Culture No growth at 3 days ALIZA 04/11/2025 10:40 AM EDT [facility] Gram Stain Few (2+) WBCs seen 04/11/2025 10:40 AM EDT [facility] Gram Stain No organisms seen 04/11/2025 10:40 AM EDT [facility] Swab Structure of right lower limb / Unknown 04/08/2025 3:40 PM EDT 04/08/2025 8:05 PM EDT Sushil Dean Jr., MD MICROBIOLOGY - GENERAL ORDERABLES Final Result Performing Organization Address [facility]/ZIP Co de Phone Number [facility]
[address] [place] [address], [facility]
[address] [place] [address], [place] [phone] * Anaerobic Culture - Swab, Leg, Right (04/08/2025 3:40 PM EDT) Only the most recent of4 resultswithin the time period is included. Pathologist [facility] Anaerobic Culture No anaerobes isolated at 5 days ALIZA 04/13/2025 7:24 AM EDT [facility] Swab Structure of right lower limb / Unknown 04/08/2025 3:40 PM EDT 04/08/2025 8:05 PM EDT Sushil Dean Jr., MD MICROBIOLOGY - GENERAL ORDERABLES Final Result Performing Organization Address [facility] Co de Phone Number [facility]
[address] [place] [address], * Scan Slide (04/08/2025 8:41 AM EDT) Pathologist [facility] RBC Morphology Normal Normal 04/08/2025 11:02 AM EDT [facility] WBC Morphology Normal Normal 04/08/2025 11:02 AM EDT [facility] Platelet Estimate Adequate Normal 04/08/2025 11:02 AM EDT [facility] Clumped Platelets Present None Seen 04/08/2025 11:02 AM EDT [facility] Blood Venipuncture / Unknown 04/08/2025 8:41 AM EDT 04/08/2025 9:10 AM EDT Una Perla PharmD LAB BLOOD ORDERABLES Final R esult Performing Organization Address City/[facility]/ZIP Co de Phone Number [facility]
[address] [place] [address], [place] [phone] * FL C Arm During Surgery (04/07/2025 9:32 PM EDT) Narrative SYSTEMGENERATED, DOCUMENTATION - 04/07/2025 9:38 PM EDT This procedure was auto-finalized with no dictation required. us Sushil Dean Jr., MD IMG FLUOROSCOPY ORDERAB LES Final Result * Tissue / Bone Culture - Tissue, Leg, Right (04/07/2025 9:13 PM EDT) Tissue Culture No growth at 3 days ALIZA 04/11/2025 10:36 AM EDT [facility] Gram Stain Rare (1+) WBCs seen 04/11/2025 10:36 AM EDT [facility] Gram Stain No organisms seen 04/11/2025 10:36 AM EDT [facility] Tissue Structure of right lower limb / Unknown 04/07/2025 9:13 PM EDT 04/08/2025 4:54 AM EDT us Sushil Dean Jr., MD MICROBIOLOGY - GENERAL ORDERABLES Final Result [facility]
[address] [place] [address], [facility]
[address] [place] [address], * BH AN ETT AIRWAY (04/07/2025 8:44 [...] Buenrostro 04/07/2025 9:58 AM EDT Workstation ID: [id number] Narrative 04/07/2025 9:58 AM EDT MRI TIBIA [...] Migelcristy 04/07/2025 9:58 AM EDT Workstation ID: [id number] Sushil Dean Jr., MD IMG MRI ORDERABLES Mary Beth l Result * Potassium (04/06/2025 7:16 PM EDT) Potassium 4.0 3.5 - 5.2 mmol/L 04/06/2025 7:53 PM EDT [facility] Blood Venipuncture / Unknown 04/06/2025 7:16 PM EDT 04/06/2025 7:35 PM EDT Jason Álvarez DO LAB BLOOD ORDERABLES Final Resul t Performing Organization Address City/[facility]/ZIP Co de Phone Number [facility]
[address] [place] [address], * CK (04/05/2025 12:15 PM EDT) Creatine Kinase 140 20 - 200 U/L 04/05/2025 1:31 PM EDT [facility] Blood Venipuncture / Unknown 04/05/2025 12:15 PM EDT 04/05/2025 1:03 PM EDT Carlton Mead MD LAB BLOOD ORDERABLES Final R esult Performing Organization Address City/[facility]/ZIP Co de Phone Number [facility]
[address] [place] [address], * (ABNORMAL) aPTT (04/05/2025 3:54 AM EDT) Only the most recent of2 resultswithin the time period is included. PTT 35.3(L) 60.0 - 90.0 seconds 04/05/2025 4:31 AM EDT [facility] Blood Venipuncture / Unknown 04/05/2025 3:54 AM EDT 04/05/2025 4:15 AM EDT Narrative [facility] - 04/05/2025 4:31 AM EDT PTT = The equivalent PTT values for the therapeutic range of heparin levels at 0.3 to 0.5 U/ml are 60 to 70 seconds. Shipping Company[employer] LAB BLOOD ORDERABLES Final R esult Performing Organization Address [facility]/ZIP Co de Phone Number [facility]
[address] [place] [address], * (ABNORMAL) Protime-INR (04/05/2025 12:18 AM EDT) Protime 15.9(H) 12.2 - 15.3 Seconds 04/05/2025 12:53 AM EDT [facility] INR 1.19(H) 0.89 - 1.12 04/05/2025 12:53 AM EDT [facility] Blood Venipuncture / Unknown 04/05/2025 12:18 AM EDT 04/05/2025 12:37 AM EDT Icanbesponsored PharmD LAB BLOOD ORDERABLES Final R esult [facility]
[address] [place] [address], * POC Creatinine (04/04/2025 2:49 PM EDT) Creatinine 1.10 0.60 - 1.30 mg/dL 04/07/2025 7:14 PM EDT [facility] Comment:Serial Number: [id number] 7Operator: [id number] Venous Blood 04/04/2025 2:49 PM EDT 04/07/2025 7:14 PM EDT Jason Álvarez DO POINT OF CARE TEST ORDERABLES Fi nal Result Performing Organization Address [facility] de Phone Number [facility]
[address] [place] [address], * (ABNORMAL) Sedimentation Rate (04/04/2025 2:47 PM EDT) Sed Rate 51(H) 0 - 15 mm/hr 04/04/2025 3:06 PM EDT [facility] Blood Venipuncture / Unknown 04/04/2025 2:47 PM EDT 04/04/2025 2:52 PM EDT Mario Crowley DO LAB BLOOD ORDERABLES Fin al Result Performing Organization Address [facility] de Phone Number [facility]
[address] [place] [address], [place] [phone] * (ABNORMAL) C-reactive Protein (04/04/2025 2:47 PM EDT) C-Reactive Protein 8.57(H) 0.00 - 0.50 mg/dL 04/04/2025 3:26 PM EDT [facility] Blood Venipuncture / Unknown 04/04/2025 2:47 PM EDT 04/04/2025 2:52 PM EDT Mario Crowley DO LAB BLOOD ORDERABLES Fin al Result Performing Organization Address [facility] Co de Phone Number [facility]
[address] [place] [address], [place] [phone] from Last 3 Months Additional Health Concerns [...] Of Support Discussed With: Patient Care Teams Board Design Engineer Relationship Specialty Start Date End Date Provider, No Known [facility] [place] [address] PCP - General 05/09/23
--- OUTSIDE RECORDS SUMMARY | 2025-04-14 09:57 | XMS_ITS | Encounter Summary ---
Author Organization Healthcare Address [address] [place] [address] Care Team Providers Care Sales And Business Development Manager Name Role Phone Unavailable Primary Care Provider Unavailabl e Encounter Details Date Type Department Care Team (Late st Contact Info) Description 08/12/2022 Lab Requisition [facility] [address] [place] [address] Sushil Dean MD [address] [place] [address] Encounter for general adult medical examination without [...] has been identified using the FDA Approved [employer] CA System The organism value for this [...] Final Result Performing Organization Address City/[facility] de Phone Number [facility]ALTH[facility] [address] [place] [address] * Bone Culture and Gram Stain (08/12/2022 [...] Final Result Performing Organization Address City/[facility] de Phone Number [facility] [address] [place] [address] documented in this encounter Visit Diagnoses Diagnosis Encounter for general adult medical examination without abnormal findings documented in this encounter
--- OUTSIDE RECORDS SUMMARY | 2025-04-14 09:57 | XMS_ITS | Encounter Summary ---
Author Organization Healthcare Address [address] [place] [address] Care Team Providers Care Card Seller Name Role Phone Unavailable Primary Care Provider Unavailabl e Encounter Details Date Type Department Care Team (Late st Contact Info) Description 07/20/2022 Lab Requisition [facility] [address] [place] [address] Sushil Dean MD [address] [place] [address] Encounter for general adult medical examination without [...]
--- OUTSIDE RECORDS SUMMARY | 2025-04-14 09:57 | XMS_ITS | Encounter Summary ---
Author Organization Healthcare Address [address] [place] [address] Care Team Providers Care Barrel Plater Name Role Phone Unavailable Primary Care Provider Unavailabl e Encounter Details Date Type Department Care Team (Late st Contact Info) Description 07/20/2022 Lab Requisition [facility] [address] [place] [address] Sushil Dean MD [address] [place] [address] Encounter for general adult medical examination without [...] at day 4 07/27/2022 11:32 AM EST [facility] Bone Specimen from bone / Unknown 07/20/2022 1:36 PM EST 07/20/2022 5:52 PM EST us Sushil Dean MD LAB MICROBIOLOGY - GENERAL O RDERABLES Final Result Performing Organization Address City/[facility] Co de Phone Number [facility] [address] [place] [address] * Bone Culture and Gram Stain (07/20/2022 1:36 PM EST) Culture No growth at day 4 2022 9:16 AM EST [facility] Gram Stain Result Rare Polymorphonuclear leukocytes 07/24/2022 9:16 AM EST [facility] Gram Stain Result No organisms seen 07/24/2022 9:16 AM EST [facility] Bone Specimen from bone / Unknown 07/20/2022 1:36 PM EST 07/20/2022 5:52 PM EST us Sushil Dean MD LAB MICROBIOLOGY - GENERAL O RDERABLES Final Result Performing Organization Address City/[facility] Co de Phone Number [facility] [address] [place] [address] documented in this encounter Visit Diagnoses Diagnosis Encounter for general adult medical examination without abnormal findings documented in this encounter
--- OUTSIDE RECORDS SUMMARY | 2025-04-14 09:57 | XMS_ITS | Clinical Summary ---
Author Organization Healthcare Address [address] [place] [address] Care Team Providers Care Slicing Machine Operator/Tender Name Role Phone Unavailable Primary Care Provider [...]
--- OUTSIDE RECORDS SUMMARY | 2025-04-14 09:57 | XMS_ITS | Encounter Summary ---
Author Organization Healthcare Address [address] [place] [address] Care Team Providers Care Shanker Out Name Role Phone Unavailable Primary Care Provider Unavailabl e Encounter Details Date Type Department Care Team (Late st Contact Info) Description 05/17/2023 Lab Requisition [facility] [address] [place] [address] Sushil Dean MD [address] [facility] [address] [place] [address] Encounter for general adult medical examination without [...] O RDERABLES Final Result Performing Organization Address City/[facility] Co de Phone Number [facility] [address] [place] [address] * Bone Culture and Gram Stain (05/17/2023 [...] O RDERABLES Final Result Performing Organization Address [facility] Co de Phone Number [facility] [address] [place] [address] documented in this encounter Visit Diagnoses Diagnosis Encounter for general adult medical examination without abnormal findings documented in this encounter
--- OUTSIDE RECORDS SUMMARY | 2025-04-14 09:57 | XMS_ITS | Encounter Summary ---
Author Organization Healthcare Address [address] [place] [address] Care Team Providers Care Tobacco [place]creage Measurer Name Role Phone Unavailable Primary Care Provider Unavailabl e Encounter Details Date Type Department Care Team (Late st Contact Info) Description 10/19/2022 Lab Requisition [facility] [address] [place] [address] Sushil Dean MD [address] [place] [address] Encounter for general adult medical examination without [...] by MALDI tof mass spectrometry using the Stand In database and is for research use only. The organism value for this result has been updated. These results have been appended to the previously preliminary verified report. Bone Specimen from bone / Unknown 10/19/2022 5:17 PM EDT 10/19/2022 9:49 PM EDT Sushil Dean MD LAB MICROBIOLOGY - GENERAL O RDERABLES Final Result Performing Organization Address [facility] de Phone Number [facility] [address] [place] [id number] * Bone Culture and Gram Stain (10/19/2022 5:17 PM EDT) Culture No growth at day 4 2022 8:14 AM EDT [facility] Gram Stain Result Few Polymorphonuclear leukocytes 10/23/2022 8:14 AM EDT [facility] Gram Stain Result No organisms seen 10/23/2022 8:14 AM EDT [facility] Bone Specimen from bone / Unknown 10/19/2022 5:17 PM EDT 10/19/2022 9:49 PM EDT Sushil Dean MD LAB MICROBIOLOGY - GENERAL O RDERAADDI Final Result Performing Organization Address [facility] Phone Number [facility] [address] [place] [address] documented in this encounter Visit Diagnoses Diagnosis Encounter for general adult medical examination without abnormal findings documented in this encounter
[2025-04-14 10:00] VITALS: BP 100/68; PULSE 71; RESP 18; TEMP 36.6; O2SAT 99
[2025-04-14 10:15] LABS: Hematocrit 41.8 % (42.0-52.0); Hemoglobin 13.8 g/dL (14.1-18.0); Immature Granulocytes % 0.3 %; Mean Corpuscular HGB Conc 33.0 g/dL (31.8-35.4); Mean Corpuscular Hemoglobin 28.0 pg (27.0-31.2); Mean Corpuscular Volume 84.8 fl (80-94); Nucleated Red Blood Cells % 0 %; Platelet Count 302 K/mm3 (142-424); Red Blood Count 4.93 M/mm3 (4.60-6.20); Red Cell Distribution Width-SD 40.1 fL; White Blood Count 7.5 K/mm3 (4.8-10.8)
[2025-04-14 10:36] LABS: Albumin Level 3.5 g/dl (3.5-5.0)
[2025-04-14 10:39] LABS: Alanine Aminotransferase 72 U/L (12-78); Bilirubin,Total 0.4 mg/dl (0.2-1.3)
[2025-04-14 10:41] VITALS: BP 121/67; PULSE 74
[2025-04-14 10:49] LABS: Chloride 101 mmol/L (98-107); Potassium 3.9 mmoL/L (3.5-5.1); Sodium 134 mmol/L (136-145)
[2025-04-14 10:52] LABS: Albumin/Globulin Ratio 1.0 (1.1-1.8); Alkaline Phosphatase 115 U/L (38-126); Anion Gap 8.9 mEq/L (5-15); Aspartate Amino Transferase 49 U/L (17-59); Blood Urea Nitrogen 21 mg/dl (9-20); Calcium 8.6 mg/dl (8.4-10.2); Carbon Dioxide 28 mmol/L (22.0-30.0); Creatine Kinase 210 U/L (55-170); Creatinine,Serum 0.80 mg/dl (0.66-1.25); Estimated Glomerular Filt Rate 105 ml/min (>60); GFR (African American) 127 ML/MIN (>60); Globulin 3.6 g/dL (1.3-3.2); Glucose 115 mg/dl (74-100); Total Protein,Serum 7.1 g/dl (6.3-8.2)
[2025-04-14] MEDS: SODIUM CHLORIDE 0.9% 10ML FLUSH SYRINGE 10 ML IV (12:57)
[2025-04-14 13:20] LABS: C-Reactive Protein 23.2 mg/L (0-4)
== END 2025-04-14 10:41 | disposition home or self-care (01) ==
LOC: INF 09:50
PROVIDERS: PCP Nurse Practitioner Family; Visit Provider Internal Medicine Infectious Disease
DX: L03.115 Cellulitis of right lower limb (principal); L02.415 Cutaneous abscess of right lower limb; Z89.511 Acquired absence of right leg below knee; D68.2 Hereditary deficiency of other clotting factors; I10 Essential (primary) hypertension; E78.5 Hyperlipidemia, unspecified; F39 Unspecified mood [affective] disorder
CPT/HCPCS: 80053; 82550; 85025; 85651; 86140; 96365; J0878

== ENCOUNTER 2025-04-16 09:13 | Outpatient (CLI) | payer MEDICARE, SELFPAY ==
[2025-04-16 09:33] VITALS: BP 99/50; PULSE 65; RESP 17; O2SAT 93
[2025-04-16 10:10] VITALS: BP 102/54; PULSE 70; RESP 16
== END 2025-04-16 23:59 | disposition home or self-care (01) ==
LOC: INF 09:15
PROVIDERS: PCP Nurse Practitioner Family; Visit Provider Internal Medicine Infectious Disease
DX: L03.115 Cellulitis of right lower limb (principal); L02.415 Cutaneous abscess of right lower limb; Z89.511 Acquired absence of right leg below knee; D68.2 Hereditary deficiency of other clotting factors; I10 Essential (primary) hypertension; E78.5 Hyperlipidemia, unspecified; F39 Unspecified mood [affective] disorder
CPT/HCPCS: 96365; J0878

== ENCOUNTER 2025-04-17 07:26 | Outpatient (CLI) | payer MEDICARE, SELFPAY ==
[2025-04-17 07:38] VITALS: BP 100/65; PULSE 71; O2SAT 100
[2025-04-17] MEDS: 0.9 % SODIUM CHLORIDE 100 ML IV (07:42)
[2025-04-17 08:10] VITALS: BP 99/62; PULSE 61; RESP 18; O2SAT 99
[2025-04-17] MEDS: SODIUM CHLORIDE 0.9% 10ML FLUSH SYRINGE 10 ML IV (08:57)
== END 2025-04-17 23:59 | disposition home or self-care (01) ==
LOC: INF 07:27
PROVIDERS: PCP Nurse Practitioner Family; Visit Provider Internal Medicine Infectious Disease
DX: L03.115 Cellulitis of right lower limb (principal); L02.415 Cutaneous abscess of right lower limb; Z89.511 Acquired absence of right leg below knee; D68.2 Hereditary deficiency of other clotting factors; I10 Essential (primary) hypertension; E78.5 Hyperlipidemia, unspecified; F39 Unspecified mood [affective] disorder
CPT/HCPCS: 96365; J0878

== ENCOUNTER 2025-04-18 09:48 | Outpatient (CLI) | payer MEDICARE, SELFPAY ==
--- OUTSIDE RECORDS SUMMARY | 2023-10-25 12:15 | XMS_ITS ---
Author Organization [facility] Address [address] [place] [address] Y[place]ON Sykes [phone] Care Team Providers Care Rn Social Work Name Role Phone Zeeshan Salazar Primary Care Provider [phone] Macario Burkett [phone] Allergies No Known Allergies REASON FOR VISIT check up BP Encounters Encounter Location Date Provider Diagnosis [facility] [address] [place] [address] Y[place]ON Sykes [id number] 10/25/2023 Macario Burkett Plan Of Treatment No Information Progress Notes * MITCHELLWonDOB: [birth year] (44 yo M)Acc No.[id number]:10/25/2023 Progress Notes Patient: Won SPANN Provider: Colleen Burkett M.D. :1980 A ge:43 Y S ex:Male Date:10/25/2023 Address:[address] [place] [address] Onel THACKER [id number] Pcp:Zeeshan Salazar Subjective: * Chief Complaints: * [...] alive, hypertension. M aternal Grand Mother: HBP, [place]. Brother with HBP. * Social History: C URRENT TOBACCO USE S moking Status: Patient does NOT smoke. C affeine: no. Alcohol: No. * Allergies: N .K.D.A. Objective: * Vitals: Assessment: Plan: * Treatment: * Images: Billing Information: * Visit Code: * Procedure Codes: * Electronic signature of Micaela Burkett MD on 04/18/2025 at 10:00 AM EDT Sign off status: Pending * Provider: Colleen Burkett M.D. Date: 0 10/25/2023 Generated for Nany jorgensen/Elaine/Lisbethitting on: 1 10:00 AM EDT
--- OUTSIDE RECORDS SUMMARY | 2023-12-12 05:00 | XMS_ITS ---
Author Organization [facility] Address 1210 [facility] 36 [facility] 2C YVON Sykes [phone] Care Team Providers Care Photographer Finish Name Role Phone Zeeshan Salazar Primary Care Provider Macario Burkett [phone] REASON FOR VISIT 6 Month Check Up Encounters Encounter Location Date Provider Diagnosis [place] 1210 [facility] [address] [place] [phone] 12/12/2023 Macario Burkett Plan Of Treatment No Information Progress Notes * Won MEDRANO ZeeshanDOB: [birth year] (44 yo M)Acc No.[id number]:12/12/2023 Progress Notes Patient: Won SPANN Provider: Colleen Burkett M.D. :1980 A ge:43 Y S ex:Male Date:12/12/2023 Address:[address] [place] [address] Onel THACKER [id number] Pcp:Zeeshan Salazar Subjective: * Chief Complaints: * 1 . 6 Month Check Up. * Medical History: Objective: * Vitals: Assessment: Plan: * Treatment: * Images: Billing Information: * Visit Code: * Procedure Codes: * Electronic signature of Micaela Burkett MD on 04/18/2025 at 10:00 AM EDT Sign off status: Pending * Provider: Colleen Burkett M.D. Date: 12/12/2023 Generated for Nany jorgensen/Elaine/Pro on: 1 10:00 AM EDT
--- OUTSIDE RECORDS SUMMARY | 2025-04-04 16:10 | XMS_ITS | Encounter Summary ---
Author Organization [facility] Address [address] [place] [address] Care Team Providers Care Wind Tunnel Engineer Name Role Phone Provider, No Known Primary Care Provider Unavail able Reason for Visit * Reason Comments Leg Swelling * Auth/Cert Specialty Diagnoses / Procedures Referred By Contlevy t Referred To Contact Diagnoses Right BKA infection Referral ID Status Reason Start Date Expiration Date Visits Re quested Visits Authorized [id number] 1 1 Encounter Details Date Type Department Care Team (Late st Contact Info) Description 04/04/2025 4:10 PM EDT - 04/11/2025 1:58 PM EDT Hospital Encounter [address] [place] [address] Mario Crowley, [address] [place] [address] Leonora Shepherd MD [address] [address] Jason Álvarez DO [address] [address] Jadyn Richardson DO [address] [address] Cellulitis of right lower extremity (Primary Dx); Below-knee amputation of right lower extremity, initial encounter; Right BKA infection Discharge Disposition: Home or Self Care Social History Tobacco Use Types Packs/Day Years Used Date Smoking Tobacco: Never Smokeless Tobacco: Never Tobacco Cessation:Counseling Given: Not Answered Alcohol Use Standard Drinks/Week Comments Not Currently 0 (1 standard drink = 0.6 oz pur e alcohol) [facility] Utilities Answer Date Recorded In the past 12 months has th e [employer], gas, oil, or water company threatened to [...] or training? Not on file Preferred Language Ghanaian 04/07/2025 Sex and Gender Information Value Date [...] PM EDT Cherri Kramer rd, RN * Lawrence Suicide Severity Rating Scale (Screener/Recent Self-Report) Question [...] from the original note were not included. [facility] Medicine Services DISCHARGE SUMMARY Patient [...] Date/Time Wound Culture - Swab, Leg, Right [[id number]] (Abnormal) (Susceptibility) Collected: 04/07/252106 Lab Status: Final [...] Units Date/Time FL C Arm During Surgery [[id number]] Resulted: 04/07/252137 Updated: 04/07/252137 Narrative: This procedure was auto-finalized with no dictation required. MRI Tibia Fibula Right With & Without Contrast [[id number]] Collected: 04/07/25 0938 Updated: 04/07/25 1001 Narrative: [...] Buenrostro 04/07/2025 9:58 AM EDT Workstation ID: [id number] MRI Tibia Fibula Right With & Without Contrast [[id number]] Collected: 04/04/252256 Updated: 04/04/252302 Narrative: MRI TIBIA [...] represent a small area of phlegmonous change ([id number] image 10) measuring approximately 1.6 cm which [...] MD 04/04/2025 11:00 PM EDT Workstation ID: [id number] Pending Labs Order Current Status Fungus Culture [...] FLOMAX 1 capsule, Nightly Stop These Medications [facility] capsule doxycycline 100 MG tablet Commonly known [...] Male) Date of 1980 Social Security Number [id number] [place] [address] Oriental Orthodox Unknown Marital Status Unknown Admission Date 04/04/2025 Admission Type Emergency Admitting Provider Jadyn Richardson DO Attending Provider Jadyn Richardson DO Department, Room/Bed [address], S565/1 Discharge Date Discharge Disposition Discharge [...] Group [place] [id number] Payor Plan Address Payor Plan Phone Number Payor Plan Fax Number Effective Dates [employer] [address] [address] 08/10/2023 - None Entered [place] [address] Subscriber Name Subscriber Date Member ID WON DENNIS 1980 [id number] Emergency Contacts 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.) Home Phone Work Phone Mobile Phone Avril Dennis (Spouse) -- -- [phone] LewRobert (Relative) -- -- [phone] [place] [facility] [address] Patient: ROOM: [facility] Won Dennis [address] [place] [facility] [address] : 1980 SSN: [id number] Sex: M PCP: Provider, No Known Emergency Contact Information Name Relation Home Work Mobile Avril Dennis Spouse [phone] Other Contacts Name Relation Home Work Mobile Robert Hackett Relative [phone] INSURANCE PAYOR PLAN GROUP # SUBSCRIBER ID Primary: Secondary: MEDICARE [place]ID [place] [id number] Admitting Diagnosis: 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] Order Date: Apr 09, 2025 Case Management Logistics Operations Director Consult (Order ID: [id number]) Diagnosis: Priority: Routine Expected Date: Expiration Date: Interval: Once Count: Comments: Outpatient orders: 1. Outpatient intravenous antibiotic therapy: Daptomycin 800 mg IV daily to be supplied by [facility] 2. Home health to perform [...] INFECTIOUS DISEASE Progress Note Won Dennis 1980 [id number] Date of Consult: 04/10/2025 Admission Date: 04/04/2025 [...] to seek treatment at [facility]. He is known to Dr. Dean. He [...] wound 05/09/25. HDS, on Heparin gtt. Currently [facility] has been asked to manage [...] Jr., MD, 20 mg at 04/09/25906 heparin 94381 units/250 mL (100 units/mL) in 0.45 % [...] Units Date/Time FL C Arm During Surgery [[id number]] Resulted: 04/07/252137 Updated: 04/07/252137 Narrative: This procedure was auto-finalized with no dictation required. MRI Tibia Fibula Right With & Without Contrast [[id number]] Collected: 04/07/25 0938 Updated: 04/07/25 1001 Narrative: [...] Chitra 04/07/2025 9:58 AM EDT Workstation ID: [id number] Impression: Recurrent Right BKA stump abscess/cellulitis- this [...] discussed his disposition with the pharmacist at [facility] today. I will sign off Outpatient orders: 1. Outpatient intravenous antibiotic therapy: Daptomycin 800 mg IV daily to be supplied by [facility] 2. Home health to [...] Time: 04/10/251323 Signed Expand All Collapse All [facility] Medicine Services PROGRESS NOTE Patient [...] Date/Time Wound Culture - Swab, Leg, Right [[id number]] (Abnormal) (Susceptibility) Collected: 04/07/252106 Lab Status: Final [...] Row Name 04/06/25 1143 Sit-Stand Transfer Sit-Stand [place] (Transfers) modified independence -LM Comment, (Sit-Stand Transfer) Pt stood from recliner. Not holding onto walker, pt able to pull his pants up while balancing on his one leg. -LM Row Name 04/06/25 1143 Gait/Stairs (Locomotion) [place] Level (Gait) modified independence -LM Distance in [...] Nurse Physical Therapy Education Title: PT OT RIVER EXPEDITION GUIDE Therapies (Done) Topic: Physical Therapy (Done) Point: [...] Description Service Date Service Provider Modifiers Qty [id number] PT EVAL LOW COMPLEXITY 3 04/06/2025 Susan [...] from the original note were not included. [facility] Medicine Services PROGRESS NOTE Patient [...] Date/Time Wound Culture - Swab, Leg, Right [[id number]] (Abnormal) (Susceptibility) Collected: 04/07/252106 Lab Status: Final [...] INFECTIOUS DISEASE Progress Note Won Dennis 1980 [id number] Date of Consult: 04/10/2025 Admission Date: 04/04/2025 [...] to seek treatment at [facility]. He is known to Dr. Dean. He [...] wound 05/09/25. HDS, on Heparin gtt. Currently [facility] has been asked to manage [...] Procedure: LEG DEBRIDEMENT AND IRRIGATION; Surgeon: Sushil eDan Jr., MD; Location: [facility];Service: Orthopedics; Laterality: Right; History reviewed. No pertinent [...] Not Applicable, PRN, Susihl Dean Jr., MD DAPTOmycin (CUBICIN) 800 mg [...] Jr., MD, 20 mg at 04/09/25906 heparin 37908 units/250 mL (100 units/mL) in 0.45 % [...] Units Date/Time FL C Arm During Surgery [[id number]] Resulted: 04/07/252137 Updated: 04/07/252137 Narrative: This procedure was auto-finalized with no dictation required. MRI Tibia Fibula Right With & Without Contrast [[id number]] Collected: 04/07/25937 Updated: 04/07/25 100 Narrative: MRI [...] Chitra 04/07/2025 9:58 AM EDT Workstation ID: [id number] Impression: Recurrent Right BKA stump abscess/cellulitis- this [...] discussed his disposition with the pharmacist at [facility] today. I will sign off Outpatient orders: 1. Outpatient intravenous antibiotic therapy: Daptomycin 800 mg IV daily to be supplied by [facility] 2. Home health to [...] MD 04/10/2025 07:38 EDT * Larisa Hamilton, [facility] - 04/10/2025 7:17 AM EDT Pharmacy [...] from the original note were not included. [facility] Medicine Services PROGRESS NOTE Patient [...] Date/Time Wound Culture - Swab, Leg, Right [[id number]] (Abnormal) Collected: 04/07/252106 Lab Status: Preliminary result [...] Jason Álvarez DO 04/09/25 * Larisa Hamilton [facility] - 04/09/2025 11:36 AM EDT Pharmacy [...] INFECTIOUS DISEASE Progress Note Won Dennis 1980 [id number] Date of Consult: 04/09/2025 Admission Date: 04/04/2025 [...] to seek treatment at [facility]. He is known to Dr. Dean. He [...] wound 05/09/25. HDS, on Heparin gtt. Currently [facility] has been asked to manage [...] IRRIGATION; Surgeon: Sushil Dean Jr., MD; Location: [facility]; Service: Orthopedics; Laterality: Right; PLACEMENT OF WOUND VAC Right 04/07/2025 Procedure: WOUND VACUUM ASSISTED CLOSURE; Surgeon: Sushil Dean Jr., MD; Location: [facility]; Service: Orthopedics; Laterality: Right; History reviewed. No [...] MD, 20 mg at 04/08/25 0800 heparin 80502 units/250 mL (100 units/mL) in 0.45 % [...] Units Date/Time FL C Arm During Surgery [[id number]] Resulted: 04/07/252137 Updated: 04/07/252137 Narrative: This procedure was auto-finalized with no dictation required. MRI Tibia Fibula Right With & Without Contrast [[id number]] Collected: 04/07/25 0938 Updated: 04/07/25 1001 Narrative: [...] Buenrostro 04/07/2025 9:58 AM EDT Workstation ID: [id number] Impression: Recurrent Right BKA stump abscess/cellulitis- this [...] mg IV daily to be supplied by [facility] 2. Home health to perform [...] from the original note were not included. [facility] Medicine Services PROGRESS NOTE Patient [...] Buenrostro 04/07/2025 9:58 AM EDT Workstation ID: [id number] I have personally reviewed the therapy plans: [...] Jason Álvarez DO 04/08/25 * Larisa Hamilton [facility] - 04/08/2025 11:48 AM EDT Pharmacy [...] 0.30 11 -- -- [address] [facility] 04/05 1215 0.17 11 1999 +3 14 [...] INFECTIOUS DISEASE Progress Note Won Dennis 1980 [id number] Date of Consult: 04/08/2025 Admission Date: 04/04/2025 [...] to seek treatment at [facility]. He is known to Dr. Dean. He [...] wound 05/09/25. HDS, on Heparin gtt. Currently [facility] has been asked to manage [...] IRRIGATION; Surgeon: Sushil Dean Jr., MD; Location: [facility] OR; Service: Orthopedics; Laterality: Right; PLACEMENT OF WOUND VAC Right 04/07/2025 Procedure: WOUND VACUUM ASSISTED CLOSURE; Surgeon: Sushil Dean Jr., MD; Location: [facility] OR; Service: Orthopedics; Laterality: Right; History [...] Jr., MD, 20 mg at 04/07/25950 heparin 76002 units/250 mL (100 units/mL) in 0.45 % [...] Units Date/Time FL C Arm During Surgery [[id number]] Resulted: 04/07/252137 Updated: 04/07/252137 Narrative: This procedure was auto-finalized with no dictation required. MRI Tibia Fibula Right With & Without Contrast [[id number]] Collected: 04/07/25937 Updated: 04/07/25 100 Narrative: MRI [...] Lainezcristy 04/07/2025 9:58 AM EDT Workstation ID: [id number] Impression: 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 (Treated by ID in [place] Dr. Harris). Dr. Torres treated him with [...] of care for this complex patient. Carlton Maed MD 04/08/2025 07:37 EDT * Jason Álvarez DO - 04/07/2025 2:11 PM EDT Images from the original note were not included. [facility] Medicine Services PROGRESS NOTE Patient [...] Buenrostro 04/07/2025 9:58 AM EDT Workstation ID: [id number] I have personally reviewed the therapy plans: [...] Jason Álvarez DO 04/07/25 * Larisa Hamilton [facility] - 04/07/2025 11:56 AM EDT Pharmacy [...] INFECTIOUS DISEASE Progress Note Won Dennis 1980 [id number] Date of Consult: 04/07/2025 Admission Date: 04/04/2025 [...] to seek treatment at [facility]. He is known to Dr. Dean. He [...] wound 05/09/25. HDS, on Heparin gtt. Currently [facility] has been asked to manage [...] Leonora Shepherd MD, 20 mg at 04/06/25 09 heparin 16363 units/250 mL (100 units/mL) in 0.45 % NaCl infusion, 18 Units/kg/hr, Intravenous, Titrated, Cherri Beatty, [facility], Last Rate: 24.1 mL/hr at 04/07/25217, 18 [...] With & Without Contrast - In process [[id number]] Resulted: 04/07/25828 Updated: 04/07/25828 This result has not been signed. Information might be incomplete. MRI Tibia Fibula Right With & Without Contrast [[id number]] Collected: 04/04/252256 Updated: 04/04/252302 Narrative: MRI TIBIA [...] represent a small area of phlegmonous change ([id number] image 10) measuring approximately 1.6 cm which [...] MD 04/04/2025 11:00 PM EDT Workstation ID: [id number] Impression: 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 (Treated by ID in [place] Dr. Harris). Dr. Torres treated him with [...] mg Daily 04/05/2025 -- Route: Oral heparin 09937 units/250 mL (100 units/mL) in 0.45 % [...] -- Admin Instructions: Open Order & [facility] Electrolyte Replacement Protocol Algorithm to View Details [...] -- Admin Instructions: Open Order & [facility] Electrolyte Replacement Protocol Algorithm to View Details [...] Jr, MD 04/07/25 06:07 EDT * RogerioCherri, [facility] - 04/06/2025 1:47 PM EDT Pharmacy [...] from the original note were not included. [facility] Medicine Services PROGRESS NOTE Patient [...] MD 04/04/2025 11:00 PM EDT Workstation ID: [id number] I have personally reviewed the therapy plans: [...] AM-PAC 6 Clicks Score (PT): 23 (04/06/25 1627) CODE STATUS: Code Status and Medical Interventions: [...] mg Daily 04/05/2025 -- Route: Oral heparin 98728 units/250 mL (100 units/mL) in 0.45 % [...] -- Admin Instructions: Open Order & [facility] Electrolyte Replacement Protocol Algorithm to View Details [...] INFECTIOUS DISEASE follow up. Won Dennis 1980 [id number] Date of Consult: 04/06/2025 Admission Date: 04/04/2025 [...] to seek treatment at [facility]. He is known to Dr. Dean. He [...] wound 05/09/25. HDS, on Heparin gtt. Currently [facility] has been asked to manage [...] Application, 1 Application, Topical, Q12H, Ayah Valentin, HEAD OF DRAMA, 1 Application at 04/06/25 0859 DAPTOmycin (CUBICIN) [...] MD, 20 mg at 04/06/25 0900 heparin 59387 units/250 mL (100 units/mL) in 0.45 % NaCl infusion, 18 Units/kg/hr, Intravenous, Titrated, Cherri Beatty, [facility], Last Rate: 24.1 mL/hr at 04/06/25 [...] 40 mg, 40 mg, Oral, Q24H, Leonora Shehperd MD, 40 mg at 04/06/2559 Antibiotics: Anti-Infectives [...] Tibia Fibula Right With & Without Contrast [[id number]] Collected: 04/04/252256 Updated: 04/04/252302 Narrative: MRI TIBIA [...] represent a small area of phlegmonous change (kzizyg03 image 10) measuring approximately 1.6 cm which [...] MD 04/04/2025 11:00 PM EDT Workstation ID: [id number] Impression: 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 (Treated by ID in [place] Dr. Harris). Dr. Torres treated him with [...] MD 04/06/2025 16:00 EDT * Cherri Beatty, [facility] - 04/05/2025 3:01 PM EDT Pharmacy [...] from the original note were not included. [facility] Medicine Services PROGRESS NOTE Patient [...] MD 04/04/2025 11:00 PM EDT Workstation ID: [id number] I have personally reviewed the therapy plans: [...] from the original note were not included. [facility] Medicine Services HISTORY AND PHYSICAL [...] MD 04/04/2025 11:00 PM EDT Workstation ID: [id number] Assessment & Plan Assessment & Plan Won [...] 4FR PICC placed by Rhoda Bonner RN [facility], tip verified by 3CG see LDA. * Sushil Dean Jr., MD - 04/05/2025 8:07 AM EDTAssociated Order(s): IP CONSULT TO ORTHOPEDIC SURGERY [facility], [facility] [address] [place] [address] Orthopedic Consult Patient: Won Dennis Date of [...] was evaluated in the emergency department in [place], was discharged with instructions for follow-up. He [...] tablet by mouth Daily. 04/03/2025 Morning Lactobacillus-Inulin ([facility]) capsule Take 200 mg by mouth Daily. [...] MD 04/04/2025 11:00 PM EDT Workstation ID: [id number] Assessment: Right BKA infection 44-year-old male with [...] DISEASE CONSULT/INITIAL HOSPITAL VISIT Won Dennis 1980 [id number] Date of Consult: 04/05/2025 Admission Date: 04/04/2025 [...] to seek treatment at [facility]. He is known to Dr. Dean. He [...] Leonora Shepherd MD, 40 mg at 04/04/25 3689 sennosides-docusate (PERICOLACE) 8.6-50 MG per tablet 2 [...] MD, 20 mg at 04/05/25 0916 heparin 57913 units/250 mL (100 units/mL) in 0.45 % [...] Leonora Shepherd MD, 10 mg at 04/04/25 6206 Pharmacy to Dose Heparin, , Not Applicable, [...] Tibia Fibula Right With & Without Contrast [[id number]] Collected: 04/04/252256 Updated: 04/04/252302 Narrative: MRI TIBIA [...] represent a small area of phlegmonous change (oocuuk88 image 10) measuring approximately 1.6 cm which [...] MD 04/04/2025 11:00 PM EDT Workstation ID: [id number] Impression: 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 (Treated by ID in [place] Dr. Harris). Dr. Torres treated him with [...] infection POSTOP DIAGNOSIS: Same. PROCEDURE: Right Right 38760: Secondary closure below-knee amputation SURGEON: Sushil Dean MD OPERATIVE TEAM: Architect Internship: Susi Grullon RN Scrub Person: Mary Paredes Scrub Person Extra: Hortencia Toribio Other: Katt Gotti RN; Charis Neville RN ANESTHETIST: Anesthesiologist: Ulises Hoffman MD PREPRESS SPECIALIST: Stan Casillas CRNA Student Nurse Baggage Security Checker: Karol Albert SRNA ANESTHESIA: Choice ESTIMATED BLOOD [...] CULTURE (Canceled) Sushil Dean Jr., MD 04/08/25 9021 Description: RIGHT LEG DEEP WOUND FOR CULTURE [...] Jr., MD - 04/07/2025 9:03 PM EDT [facility], [place] [address] OPERATIVE REPORT PATIENT NAME: Won Dennis DATE OF : 1980 PREOP DIAGNOSIS: Right Right below knee amputation stump infection POSTOP DIAGNOSIS: Same. PROCEDURE: Right Right 72721: Incision and drainage of surgical site infection 30263: Debridement of skin, subcutaneous tissue, muscle 59100: Wound vacuum-assisted closure SURGEON: Sushil Dean MD OPERATIVE TEAM: Architect Internship: Anum Sanchez RN Scrub Person: Bo Toribio Devion ARCHITECT INTERNSHIP: Anesthesiologist: Luci Alonso DO ANESTHESIA: General ESTIMATED [...] the area. seen at [facility] yesterday for CT and US, here for [...] this chart in the absence of a finishing supervisor plastic sheets. No orders to display RADIOLOGY: [x] Radiologist's [...] 04/11/2025 1:30 PM EDT Continued Stay Note [facility] Patient Name: Won Dennis Today's Date: 04/11/2025 Admit Date: 04/04/2025 Plan: Home with outpatient infusion. Discharge Plan Row Name 04/11/25 1155 Plan Plan Home with outpatient infusion. Final Discharge Disposition Code 01 - home or self-care Final Note Patient discharging today. He is discharging home with outpatient infusion at [facility]. He has an appointment with [facility] at 8:00 am tomorrow. They will do PICC line dressing changes. DEBRA has spoke with Dena at [facility] today multiple times to get setup due [...] to get IV ABX at home with [facility]; however, Medicaid lapsed on 04/08. CM was unaware until this morning that Medicaid has lapsed. Patient explained that he has Medicare A and B. CM spoke with KELLEE and given themhis Medicare number [id number], she sent it to Admission. DEBRA spoke with Kerri, with [facility], and explained that he had Medicare A and B. However, it will not cover home infusion. It will be $64.00 a day out of packet. Patients can go to the Infusion center at [facility], and it will cover the cost as an outpatient. He will need to go there every day for infusion. They will be able to do the patients' PICC line dressing changes and lab work. DEBRA called Dena [facility] Outpatient infusion center they can accept patient and start him. He is known for their facility. The Facility will need to run it through his insurance first. DEBRA faxed the orders over to [facility] at [phone]. CM will follow up with them tomorrow at [facility] to make sure they received [...] 04/09/2025 2:51 PM EDT Continued Stay Note [place] Patient Name: Won Dennis Today's Date: 04/09/2025 Admit Date: 04/04/2025 Plan: Home Discharge Plan Row Name 04/09/25 1311 Plan Plan Home Patient/Family in Agreement with Plan yes Plan Comments CM spoke with patient at bedside today. Wheelchair from [employer] is at bedside. Patient getting PICC line [...] note were not included. Discharge Planning Assessment [place] Patient Name: Won Dennis Today's Date: 04/07/2025 [...] with family Patient/Family Anticipated Services at Transition manager case managementright of way manager Anticipated family or friend will provide Discharge Needs Assessment Equipment Currently Used at Home glucometer;shower chair;pulse ox;bp cuff;prosthesis;crutches Equipment Needed After Discharge none Discharge Plan Row Name 04/07/25 1144 Plan Plan Home Patient/Family in Agreement with Plan yes Plan Comments CM spoke with patient at bedside today. Patient lives with and his 5 kids in [facility]. 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 He has walker, cane, shower chair, and crutches. He requested a wheelchair for home. CM will order wheelchair through [employer]. He is not current with home health services. PCP is Dr. Jordan. Insurance is [employer] [place]. Patient discharge plan is home with priavte transport. CM will follow for any discharge needs. Final Discharge Disposition Code 01 - home or self-care Continued Care and Services - Admitted Since 04/04/2025 No active coordination exists. Demographic Summary Row Name 04/07/25 1143 General Information Arrived From hospital Preferred Language Ghanaian Functional Status Row Name 04/07/25 1143 Functional [...] 3:4 0 PM EDT Right BKA infection [place] SEC ABDOMINAL WALL SUTURE EVISCERATION/DEHSN 04/08/2025 3:20 [...] Auto Differential (04/11/2025 3:40 AM EDT) [facility] WBC 7.87 3.40 - 10.80 10*3/mm3 04/11/2025 4:02 AM EDT [facility] RBC 4.70 4.14 - 5.80 10*6/mm3 04/11/2025 4:02 AM EDT [facility] Hemoglobin 12.8(L) 13.0 - 17.7 g/dL 04/11/2025 4:02 AM EDT [facility] Hematocrit 40.5 37.5 - 51.0 % 04/11/2025 4:02 AM [facility] MCV 86.2 79.0 - 97.0 fL 04/11/2025 4:02 [facility] MCH 27.2 26.6 - 33.0 pg 04/11/2025 4:02 AM [facility] MCHC 31.6 31.5 - 35.7 g/dL 04/11/2025 4:02 AM [facility] RDW 12.9 12.3 - 15.4 % 04/11/2025 4:02 AM [facility] RDW-SD 40.5 37.0 - 54.0 fl 04/11/2025 4:02 AM [facility] MPV 9.2 6.0 - 12.0 fL 04/11/2025 4:02 AM [facility] Platelets 267 140 - 450 10*3/mm3 04/11/2025 4:02 AM [facility] Neutrophil % 59.5 42.7 - 76.0 % 04/11/2025 4:02 AM [facility] Lymphocyte % 26.3 19.6 - 45.3 % 04/11/2025 4:02 AM [facility] Monocyte % 9.3 5.0 - 12.0 % 04/11/2025 4:02 AM [facility] Eosinophil % 4.1 0.3 - 6.2 % 04/11/2025 4:02 AM [facility] Basophil % 0.4 0.0 - 1.5 % 04/11/2025 4:02 AM [facility] Immature Grans % 0.4 0.0 - 0.5 % 04/11/2025 4:02 AM [facility] Neutrophils, Absolute 4.69 1.70 - 7.00 10*3/mm3 04/11/2025 4:02 AM [facility] Lymphocytes, Absolute 2.07 0.70 - 3.10 10*3/mm3 04/11/2025 4:02 AM EDT [facility] Monocytes, Absolute 0.73 0.10 - 0.90 10*3/mm3 04/11/2025 4:02 AM EDT [facility] Eosinophils, Absolute 0.32 0.00 - 0.40 10*3/mm3 04/11/2025 4:02 AM EDT [facility] Basophils, Absolute 0.03 0.00 - 0.20 10*3/mm3 04/11/2025 4:02 AM EDT [facility] Immature Grans, Absolute 0.03 0.00 - 0.05 10*3/mm3 04/11/2025 4:02 AM EDT [facility] nRBC 0.0 0.0 - 0.2 /100 WBC 04/11/2025 4:02 AM EDT [facility] Blood Venipuncture / Unknown 04/11/2025 3:40 AM EDT 04/11/2025 3:59 AM EDT Sushil Dean Jr., MD LAB BLOOD ORDERABLES Fi nal Result [facility]
[address] [place] [address], * (ABNORMAL) Comprehensive Metabolic Panel (04/11/2025 3:40 AM EDT) Glucose 108(H) 65 - 99 mg/dL 04/11/2025 4:19 AM EDT [facility] BUN 12.5 6.0 - 20.0 mg/dL 04/11/2025 4:19 AM EDT [facility] Creatinine 0.68(L) 0.76 - 1.27 mg/dL 04/11/2025 4:19 AM EDT [facility] Sodium 140 136 - 145 mmol/L 04/11/2025 4:19 AM EDT [facility] Potassium 3.8 3.5 - 5.2 mmol/L 04/11/2025 4:19 AM EDT [facility] Chloride 105 98 - 107 mmol/L 04/11/2025 4:19 AM [facility] CO2 28.2 22.0 - 29.0 mmol/L 04/11/2025 4:19 AM [facility] Calcium 8.2(L) 8.6 - 10.5 mg/dL 04/11/2025 4:19 AM [facility] Total Protein 6.1 6.0 - 8.5 g/dL 04/11/2025 4:19 AM [facility] Albumin 3.1(L) 3.5 - 5.2 g/dL 04/11/2025 4:19 AM [facility] ALT (SGPT) 52(H) 1 - 41 U/L 04/11/2025 4:19 AM [facility] AST (SGOT) 40 1 - 40 U/L 04/11/2025 4:19 AM [facility] Alkaline Phosphatase 99 39 - 117 U/L 04/11/2025 4:19 AM [facility] Total Bilirubin 0.2 0.0 - 1.2 mg/dL 04/11/2025 4:19 AM [facility] Globulin 3.0 gm/dL 04/11/2025 4:19 AM [facility] Comment:Calculated Result A/G Ratio 1.0 g/dL 04/11/2025 4:19 AM [facility] BUN/Creatinine Ratio 18.4 7.0 - 25.0 04/11/2025 4:19 AM [facility] Anion Gap 6.8 5.0 - 15.0 mmol/L 04/11/2025 4:19 AM [facility] eGFR 117.5 >60.0 mL/min/1.7 3 04/11/2025 4:19 AM [facility] Blood Venipuncture / Unknown 04/11/2025 3:40 AM EDT 04/11/2025 3:56 AM [facility] - 04/11/2025 4:19 AM [...] include race as a factor Rosario Sergio [employer] LAB BLOOD ORDERABLES Final Result [facility]
[address] [place] [address], * (ABNORMAL) CBC Auto Differential (04/10/2025 3:46 AM EDT) WBC 9.60 3.40 - 10.80 10*3/mm3 04/10/2025 3:56 AM EDT [facility] RBC 4.67 4.14 - 5.80 10*6/mm3 04/10/2025 3:56 AM EDT [facility] Hemoglobin 12.9(L) 13.0 - 17.7 g/dL 04/10/2025 3:56 AM EDT [facility] Hematocrit 40.1 37.5 - 51.0 % 04/10/2025 3:56 AM EDT [facility] MCV 85.9 79.0 - 97.0 fL 04/10/2025 3:56 AM EDT [facility] MCH 27.6 26.6 - 33.0 pg 04/10/2025 3:56 AM EDT [facility] MCHC 32.2 31.5 - 35.7 g/dL 04/10/2025 3:56 AM EDT [facility] RDW 12.9 12.3 - 15.4 % 04/10/2025 3:56 AM EDT [facility] RDW-SD 40.5 37.0 - 54.0 fl 04/10/2025 3:56 AM [facility] MPV 9.5 6.0 - 12.0 fL 04/10/2025 3:56 AM [facility] Platelets 227 140 - 450 10*3/mm3 04/10/2025 3:56 AM [facility] Neutrophil % 59.1 42.7 - 76.0 % 04/10/2025 3:56 AM [facility] Lymphocyte % 29.0 19.6 - 45.3 % 04/10/2025 3:56 AM [facility] Monocyte % 8.1 5.0 - 12.0 % 04/10/2025 3:56 AM [facility] Eosinophil % 3.2 0.3 - 6.2 % 04/10/2025 3:56 AM [facility] Basophil % 0.4 0.0 - 1.5 % 04/10/2025 3:56 AM [facility] Immature Grans % 0.2 0.0 - 0.5 % 04/10/2025 3:56 AM [facility] Neutrophils, Absolute 5.67 1.70 - 7.00 10*3/mm3 04/10/2025 3:56 AM [facility] Lymphocytes, Absolute 2.78 0.70 - 3.10 10*3/mm3 04/10/2025 3:56 AM [facility] Monocytes, Absolute 0.78 0.10 - 0.90 10*3/mm3 04/10/2025 3:56 AM [facility] Eosinophils, Absolute 0.31 0.00 - 0.40 10*3/mm3 04/10/2025 3:56 AM [facility] Basophils, Absolute 0.04 0.00 - 0.20 10*3/mm3 04/10/2025 3:56 AM [facility] Immature Grans, Absolute 0.02 0.00 - 0.05 10*3/mm3 04/10/2025 3:56 AM EDT [facility] nRBC 0.0 0.0 - 0.2 /100 WBC 04/10/2025 3:56 AM EDT [facility] Blood Venipuncture / Unknown 04/10/2025 3:46 AM EDT 04/10/2025 3:53 AM EDT us Jason Álvarez DO LAB BLOOD ORDERABLES Final Resul t [facility]
[address] [place] [address], * (ABNORMAL) Basic Metabolic Panel (04/10/2025 3:46 AM EDT) Glucose 125(H) 65 - 99 mg/dL 04/10/2025 4:20 AM EDT [facility] BUN 15.9 6.0 - 20.0 mg/dL 04/10/2025 4:20 AM EDT [facility] Creatinine 0.77 0.76 - 1.27 mg/dL 04/10/2025 4:20 AM EDT [facility] Sodium 137 136 - 145 mmol/L 04/10/2025 4:20 AM EDT [facility] Potassium 3.9 3.5 - 5.2 mmol/L 04/10/2025 4:20 AM EDT [facility] Chloride 102 98 - 107 mmol/L 04/10/2025 4:20 AM EDT [facility] CO2 26.9 22.0 - 29.0 mmol/L 04/10/2025 4:20 AM EDT [facility] Calcium 7.9(L) 8.6 - 10.5 mg/dL 04/10/2025 4:20 AM EDT [facility] BUN/Creatinine Ratio 20.6 7.0 - 25.0 04/10/2025 4:20 AM EDT [facility] Anion Gap 8.1 5.0 - 15.0 mmol/L 04/10/2025 4:20 AM [facility] eGFR 113.2 >60.0 mL/min/1.7 3 04/10/2025 4:20 AM EDT [facility] Blood Venipuncture / Unknown 04/10/2025 3:46 AM EDT 04/10/2025 3:52 AM EDT Narrative [facility] - 04/10/2025 4:20 AM EDT GFR [...] ORDERABLES Final Resul t Performing Organization Address City/[facility]/ZIP Co de Phone Number [facility]
[address] [place] [address], * Heparin Anti-Xa (04/10/2025 3:46 AM EDT) Heparin Anti-Xa ([facility]) 0.35 0.30 - 0.70 IU/ml 04/10/2025 4:23 AM EDT [facility] Blood Venipuncture / Unknown 04/10/2025 3:46 AM EDT 04/10/2025 3:53 AM EDT Larisa Hamilton [facility] LAB BLOOD ORDERABLES Final R esult [facility]
[address] [place] [address], * Heparin Anti-Xa (04/09/2025 10:05 AM EDT) Heparin Anti-Xa ([facility]) 0.36 0.30 - 0.70 IU/ml 04/09/2025 11:12 AM EDT [facility] Blood Venipuncture / Unknown 04/09/2025 10:05 AM EDT 04/09/2025 10:47 AM EDT Larisa Hamilton [facility] LAB BLOOD ORDERABLES Final R esult [facility]
[address] [place] [address], * (ABNORMAL) CBC Auto Differential (04/09/2025 4:18 AM EDT) Pathologist [facility] WBC 11.00(H) 3.40 - 10.80 10*3/mm3 04/09/2025 4:50 AM EDT [facility] RBC 4.70 4.14 - 5.80 10*6/mm3 04/09/2025 4:50 AM EDT [facility] Hemoglobin 13.0 13.0 - 17.7 g/dL 04/09/2025 4:50 AM EDT [facility] Hematocrit 40.4 37.5 - 51.0 % 04/09/2025 4:50 AM EDT [facility] MCV 86.0 79.0 - 97.0 fL 04/09/2025 4:50 AM EDT [facility] MCH 27.7 26.6 - 33.0 pg 04/09/2025 4:50 AM EDT [facility] MCHC 32.2 31.5 - 35.7 g/dL 04/09/2025 4:50 AM EDT [facility] RDW 12.8 12.3 - 15.4 % 04/09/2025 4:50 AM EDT [facility] RDW-SD 39.9 37.0 - 54.0 fl 04/09/2025 4:50 AM EDT [facility] MPV 10.0 6.0 - 12.0 fL 04/09/2025 4:50 AM [facility] Platelets 211 140 - 450 10*3/mm3 04/09/2025 4:50 AM [facility] Neutrophil % 74.8 42.7 - 76.0 % 04/09/2025 4:50 AM [facility] Lymphocyte % 15.4(L) 19.6 - 45.3 % 04/09/2025 4:50 AM [facility] Monocyte % 8.5 5.0 - 12.0 % 04/09/2025 4:50 AM [facility] Eosinophil % 0.6 0.3 - 6.2 % 04/09/2025 4:50 AM [facility] Basophil % 0.4 0.0 - 1.5 % 04/09/2025 4:50 AM [facility] Immature Grans % 0.3 0.0 - 0.5 % 04/09/2025 4:50 AM [facility] Neutrophils, Absolute 8.23(H) 1.70 - 7.00 10*3/mm3 04/09/2025 4:50 AM [facility] Lymphocytes, Absolute 1.69 0.70 - 3.10 10*3/mm3 04/09/2025 4:50 AM [facility] Monocytes, Absolute 0.94(H) 0.10 - 0.90 10*3/mm3 04/09/2025 4:50 AM [facility] Eosinophils, Absolute 0.07 0.00 - 0.40 10*3/mm3 04/09/2025 4:50 AM [facility] Basophils, Absolute 0.04 0.00 - 0.20 10*3/mm3 04/09/2025 4:50 AM [facility] Immature Grans, Absolute 0.03 0.00 - 0.05 10*3/mm3 04/09/2025 4:50 AM [facility] nRBC 0.0 0.0 - 0.2 /100 WBC 04/09/2025 4:50 AM EDT [facility] Blood Venipuncture / Unknown 04/09/2025 4:18 AM EDT 04/09/2025 4:31 AM EDT Sushil Dean Jr., MD LAB BLOOD ORDERABLES Fi nal Result Performing Organization Address City/[facility]/ZIP Co de Phone Number [facility]
[address] [place] [address], * Heparin Anti-Xa (04/09/2025 4:18 AM EDT) Heparin Anti-Xa ([facility]) 0.41 0.30 - 0.70 IU/ml 04/09/2025 4:53 AM EDT [facility] Blood Venipuncture / Unknown 04/09/2025 4:18 AM EDT 04/09/2025 4:31 AM EDT Una LundbergD LAB BLOOD ORDERABLES Final R esult Performing Organization Address City/[facility]/ZIP Co de Phone Number [facility]
[address] [place] [address], * (ABNORMAL) Basic Metabolic Panel (04/09/2025 4:18 AM EDT) Glucose 147(H) 65 - 99 mg/dL 04/09/2025 5:33 AM EDT [facility] BUN 23.0(H) 6.0 - 20.0 mg/dL 04/09/2025 5:33 AM EDT [facility] Creatinine 1.15 0.76 - 1.27 mg/dL 04/09/2025 5:33 AM EDT [facility] Sodium 135(L) 136 - 145 mmol/L 04/09/2025 5:33 AM EDT [facility] Potassium 4.2 3.5 - 5.2 mmol/L 04/09/2025 5:33 AM EDT [facility] Chloride 100 98 - 107 mmol/L 04/09/2025 5:33 AM EDT [facility] CO2 26.0 22.0 - 29.0 mmol/L 04/09/2025 5:33 AM EDT [facility] Calcium 8.2(L) 8.6 - 10.5 mg/dL 04/09/2025 5:33 AM EDT [facility] BUN/Creatinine Ratio 20.0 7.0 - 25.0 04/09/2025 5:33 AM EDT [facility] Anion Gap 9.0 5.0 - 15.0 mmol/L 04/09/2025 5:33 AM EDT [facility] eGFR 80.5 >60.0 mL/min/1.7 3 04/09/2025 5:33 AM EDT [facility] Blood Venipuncture / Unknown 04/09/2025 4:18 AM EDT 04/09/2025 4:29 AM EDT Narrative [facility] - 04/09/2025 5:33 AM EDT [...] MD LAB BLOOD ORDERABLES Fi nal Result [facility]
[address] [place] [address], * Wound Culture - Swab, Leg, Right (04/08/2025 3:40 PM EDT) Wound Culture No growth at 3 days ALIZA 04/11/2025 10:40 AM EDT [facility] Gram Stain Few (2+) WBCs seen 04/11/2025 10:40 AM EDT [facility] Gram Stain No organisms seen 04/11/2025 10:40 AM EDT [facility] Swab Structure of right lower limb / Unknown 04/08/2025 3:40 PM EDT 04/08/2025 8:05 PM EDT Sushil Dean Jr., MD MICROBIOLOGY - GENERAL ORDERABLES Final Result Performing Organization Address City/[facility]/ZIP Co de Phone Number [facility]
[address] [place] [address], [facility]
[address] [place] [address], [place] [phone] * Anaerobic Culture - Swab, Leg, Right (04/08/2025 3:40 PM EDT) Anaerobic Culture No anaerobes isolated at 5 days ALIZA 04/13/2025 7:24 AM EDT [facility] Swab Structure of right lower limb / Unknown 04/08/2025 3:40 PM EDT 04/08/2025 8:05 PM EDT us Sushil Dean Jr., MD MICROBIOLOGY - GENERAL ORDERABLES Final Result Performing Organization Address City/[facility]/ZIP Co de Phone Number [facility]
[address] [place] [address], * Scan Slide (04/08/2025 8:41 AM EDT) RBC Morphology Normal Normal 04/08/2025 11:02 AM EDT [facility] WBC Morphology Normal Normal 04/08/2025 11:02 AM EDT [facility] Platelet Estimate Adequate Normal 04/08/2025 11:02 AM EDT [facility] Clumped Platelets Present None Seen 04/08/2025 11:02 AM EDT [facility] Blood Venipuncture / Unknown 04/08/2025 8:41 AM EDT 04/08/2025 9:10 AM EDT Una Perla PharmD LAB BLOOD ORDERABLES Final R esult [facility]
[address] [place] [address], * (ABNORMAL) CBC Auto Differential (04/08/2025 8:41 AM EDT) WBC 10.07 3.40 - 10.80 10*3/mm3 04/08/2025 11:02 AM EDT [facility] RBC 5.01 4.14 - 5.80 10*6/mm3 04/08/2025 11:02 AM EDT [facility] Hemoglobin 14.0 13.0 - 17.7 g/dL 04/08/2025 11:02 AM EDT [facility] Hematocrit 42.7 37.5 - 51.0 % 04/08/2025 11:02 AM EDT [facility] MCV 85.2 79.0 - 97.0 fL 04/08/2025 11:02 AM EDT [facility] MCH 27.9 26.6 - 33.0 pg 04/08/2025 11:02 AM EDT [facility] MCHC 32.8 31.5 - 35.7 g/dL 04/08/2025 11:02 AM EDT [facility] RDW 12.6 12.3 - 15.4 % 04/08/2025 11:02 AM T [facility] RDW-SD 38.9 37.0 - 54.0 fl 04/08/2025 11:02 AM EDT [facility] MPV 11.0 6.0 - 12.0 fL 04/08/2025 11:02 AM EDT [facility] Platelets 118(L) 140 - 450 10*3/mm3 04/08/2025 11:02 AM [facility] Neutrophil % 85.1(H) 42.7 - 76.0 % 04/08/2025 11:02 AM [facility] Lymphocyte % 9.3(L) 19.6 - 45.3 % 04/08/2025 11:02 AM [facility] Monocyte % 4.6(L) 5.0 - 12.0 % 04/08/2025 11:02 AM [facility] Eosinophil % 0.3 0.3 - 6.2 % 04/08/2025 11:02 AM [facility] Basophil % 0.2 0.0 - 1.5 % 04/08/2025 11:02 AM [facility] Immature Grans % 0.5 0.0 - 0.5 % 04/08/2025 11:02 AM [facility] Neutrophils, Absolute 8.57(H) 1.70 - 7.00 10*3/mm3 04/08/2025 11:02 AM [facility] Lymphocytes, Absolute 0.94 0.70 - 3.10 10*3/mm3 04/08/2025 11:02 AM [facility] Monocytes, Absolute 0.46 0.10 - 0.90 10*3/mm3 04/08/2025 11:02 AM [facility] Eosinophils, Absolute 0.03 0.00 - 0.40 10*3/mm3 04/08/2025 11:02 AM [facility] Basophils, Absolute 0.02 0.00 - 0.20 10*3/mm3 04/08/2025 11:02 AM [facility] Immature Grans, Absolute 0.05 0.00 - 0.05 10*3/mm3 04/08/2025 11:02 AM [facility] nRBC 0.0 0.0 - 0.2 /100 WBC 04/08/2025 11:02 AM [facility] Blood Venipuncture / Unknown 04/08/2025 8:41 AM EDT 04/08/2025 9:10 AM EDT Una Minda PharmD LAB BLOOD ORDERABLES Final R esult [facility]
[address] [place] [address], * (ABNORMAL) Basic Metabolic Panel (04/08/2025 8:41 AM EDT) Pathologist [facility] Glucose 125(H) 65 - 99 mg/dL 04/08/2025 9:51 AM EDT [facility] BUN 13.2 6.0 - 20.0 mg/dL 04/08/2025 9:51 AM EDT [facility] Creatinine 0.69(L) 0.76 - 1.27 mg/dL 04/08/2025 9:51 AM EDT [facility] Sodium 136 136 - 145 mmol/L 04/08/2025 9:51 AM EDT [facility] Potassium 4.6 3.5 - 5.2 mmol/L 04/08/2025 9:51 AM EDT [facility] Chloride 102 98 - 107 mmol/L 04/08/2025 9:51 AM EDT [facility] CO2 23.5 22.0 - 29.0 mmol/L 04/08/2025 9:51 AM EDT [facility] Calcium 8.4(L) 8.6 - 10.5 mg/dL 04/08/2025 9:51 AM EDT [facility] BUN/Creatinine Ratio 19.1 7.0 - 25.0 04/08/2025 9:51 AM EDT [facility] Anion Gap 10.5 5.0 - 15.0 mmol/L 04/08/2025 9:51 AM EDT [facility] eGFR 117.0 >60.0 mL/min/1.7 3 04/08/2025 9:51 AM EDT [facility] Blood Venipuncture / Unknown 04/08/2025 8:41 AM EDT 04/08/2025 9:09 AM EDT Narrative [facility] - 04/08/2025 9:51 AM EDT [...] ORDERABLES Fi nal Result Performing Organization Address City/[facility]/ZIP Co de Phone Number [facility]
[address] [place] [address], * Heparin Anti-Xa (04/08/2025 8:41 AM EDT) Heparin Anti-Xa ([facility]) 0.33 0.30 - 0.70 IU/ml 04/08/2025 9:40 AM EDT [facility] Blood Venipuncture / Unknown 04/08/2025 8:41 AM EDT 04/08/2025 9:10 AM EDT us Sushil Dean Jr., MD LAB BLOOD ORDERABLES Fi nal Result [facility]
[address] [place] [address], [place] [phone] * FL C Arm During Surgery (04/07/2025 9:32 PM EDT) Narrative SYSTEMGENERATED, DOCUMENTATION - 04/07/2025 9:38 PM EDT This procedure was auto-finalized with no dictation required. us Sushil Dean Jr., MD IMG FLUOROSCOPY ORDERAB LES Final Result * Wound Culture - Swab, Leg, Right (04/07/2025 9:14 PM EDT) Wound Culture No growth at 3 days ALIZA 04/11/2025 10:40 AM EDT [facility] Gram Stain Occasional WBCs seen 04/11/2025 10:40 AM EDT [facility] Gram Stain No organisms seen 04/11/2025 10:40 AM EDT [facility] Swab Structure of right lower limb / Unknown Collection / Unknown 04/07/2025 9:14 PM EDT 04/08/2025 4:36 AM EDT Sushil Dean Jr., MD MICROBIOLOGY - GENERAL ORDERABLES Final Result Performing Organization Address City/[facility]/ZIP Co de Phone Number [facility]
[address] [place] [address], [facility]
[address] [place] [address], [place] [phone] * Anaerobic Culture - Swab, Leg, Right (04/07/2025 9:14 PM EDT) Anaerobic Culture No anaerobes isolated at 5 days ALIZA 04/13/2025 7:21 AM EDT [facility] Swab Structure of right lower limb / Unknown Collection / Unknown 04/07/2025 9:14 PM EDT 04/08/2025 4:36 AM EDT us Sushil Dean Jr., MD MICROBIOLOGY - GENERAL ORDERABLES Final Result [facility]
[address] [place] [address], * Anaerobic Culture - Tissue, Leg (04/07/2025 9:13 PM EDT) Anaerobic Culture No anaerobes isolated at 5 days ALIZA 04/13/2025 7:21 AM EDT [facility] Tissue Lower limb structure / Unknown Collection / Unknown 04/07/2025 9:13 PM EDT 04/08/2025 4:54 AM EDT Jason Álvarez DO MICROBIOLOGY - GENERAL ORDERABLE S Final Result Performing Organization Address [facility] Co de Phone Number [facility]
[address] [place] [address], * Tissue / Bone Culture - Tissue, Leg, Right (04/07/2025 9:13 PM EDT) Tissue Culture No growth at 3 days ALIZA 04/11/2025 10:36 AM EDT [facility] Gram Stain Rare (1+) WBCs seen 04/11/2025 10:36 AM EDT [facility] Gram Stain No organisms seen 04/11/2025 10:36 AM EDT [facility] Tissue Structure of right lower limb / Unknown 04/07/2025 9:13 PM EDT 04/08/2025 4:54 AM EDT Sushil Dean Jr., MD MICROBIOLOGY - GENERAL ORDERABLES Final Result Performing Organization Address [facility] de Phone Number [facility]
[address] [place] [address], [facility]
[address] [place] [address], * (ABNORMAL) Wound Culture - Swab, Leg, Right (04/07/2025 9:07 PM EDT) Wound Culture Light growth (2+) Staphylococcus aureus, MRSA(A) ALIZA 04/10/2025 10:38 AM EDT [facility] Comment: Methicillin resistant Staphylococcus aureus, Patient may be an isolation risk. Gram Stain Few (2+) WBCs seen 04/10/2025 10:38 AM EDT [facility] Gram Stain No organisms seen 025 10:38 AM EDT [facility] Swab Structure of right lower [...] GENERAL ORDERABLES Final Result Performing Organization Address City/[facility]/ZIP Co de Phone Number [facility]
[address] [place] [address], [facility] [place] [address], [place] [phone] * Anaerobic Culture - Swab, Leg, Right (04/07/2025 9:07 PM EDT) Anaerobic Culture No anaerobes isolated at 5 days ALIZA 04/13/2025 7:21 AM EDT [facility] Swab Structure of right lower limb / Unknown Collection / Unknown 04/07/2025 9:07 PM EDT 04/08/2025 4:36 AM EDT Sushil Dean Jr., MD MICROBIOLOGY - GENERAL ORDERABLES Final Result [facility]
[address] [place] [address], [place] [phone] * Heparin Anti-Xa (04/07/2025 9:10 AM EDT) Heparin Anti-Xa ([facility]) 0.30 0.30 - 0.70 IU/ml 04/07/2025 10:12 AM EDT [facility] Blood Venipuncture / Unknown 04/07/2025 9:10 AM EDT 04/07/2025 9:38 AM EDT Una Perla PharmD LAB BLOOD ORDERABLES Final R esult [facility]
[address] [place] [address], * (ABNORMAL) CBC Auto Differential (04/07/2025 9:10 AM EDT) [facility] WBC 8.63 3.40 - 10.80 10*3/mm3 04/07/2025 9:50 AM EDT [facility] RBC 5.23 4.14 - 5.80 10*6/mm3 04/07/2025 9:50 AM EDT [facility] Hemoglobin 14.7 13.0 - 17.7 g/dL 04/07/2025 9:50 AM EDT [facility] Hematocrit 44.8 37.5 - 51.0 % 04/07/2025 9:50 AM EDT [facility] MCV 85.7 79.0 - 97.0 fL 04/07/2025 9:50 AM EDT [facility] MCH 28.1 26.6 - 33.0 pg 04/07/2025 9:50 AM EDT [facility] MCHC 32.8 31.5 - 35.7 g/dL 04/07/2025 9:50 AM EDT [facility] RDW 12.8 12.3 - 15.4 % 04/07/2025 9:50 AM EDT [facility] RDW-SD 39.9 37.0 - 54.0 fl 04/07/2025 9:50 AM EDT [facility] MPV 10.8 6.0 - 12.0 fL 04/07/2025 9:50 AM [facility] Platelets 149 140 - 450 10*3/mm3 04/07/2025 9:50 AM [facility] Neutrophil % 66.7 42.7 - 76.0 % 04/07/2025 9:50 AM [facility] Lymphocyte % 20.5 19.6 - 45.3 % 04/07/2025 9:50 AM [facility] Monocyte % 9.8 5.0 - 12.0 % 04/07/2025 9:50 AM [facility] Eosinophil % 2.1 0.3 - 6.2 % 04/07/2025 9:50 AM [facility] Basophil % 0.3 0.0 - 1.5 % 04/07/2025 9:50 AM [facility] Immature Grans % 0.6(H) 0.0 - 0.5 % 04/07/2025 9:50 AM [facility] Neutrophils, Absolute 5.75 1.70 - 7.00 10*3/mm3 04/07/2025 9:50 AM [facility] Lymphocytes, Absolute 1.77 0.70 - 3.10 10*3/mm3 04/07/2025 9:50 AM [facility] Monocytes, Absolute 0.85 0.10 - 0.90 10*3/mm3 04/07/2025 9:50 AM [facility] Eosinophils, Absolute 0.18 0.00 - 0.40 10*3/mm3 04/07/2025 9:50 AM [facility] Basophils, Absolute 0.03 0.00 - 0.20 10*3/mm3 04/07/2025 9:50 AM [facility] Immature Grans, Absolute 0.05 0.00 - 0.05 10*3/mm3 04/07/2025 9:50 AM [facility] nRBC 0.0 0.0 - 0.2 /100 WBC 04/07/2025 9:50 AM [facility] Blood Venipuncture / Unknown 04/07/2025 9:10 AM EDT 04/07/2025 9:38 AM EDT Jason Álvarez DO LAB BLOOD ORDERABLES Final Resul t [facility]
[address] [place] [address], * (ABNORMAL) Basic Metabolic Panel (04/07/2025 9:10 AM EDT) Glucose 112(H) 65 - 99 mg/dL 04/07/2025 10:19 AM EDT [facility] BUN 13.1 6.0 - 20.0 mg/dL 04/07/2025 10:19 AM EDT [facility] Creatinine 0.77 0.76 - 1.27 mg/dL 04/07/2025 10:19 AM EDT [facility] Sodium 139 136 - 145 mmol/L 04/07/2025 10:19 AM EDT [facility] Potassium 4.2 3.5 - 5.2 mmol/L 04/07/2025 10:19 AM EDT [facility] Comment:Specimen hemolyzed. Result may be falsely elevated. Chloride 105 98 - 107 mmol/L 04/07/2025 10:19 AM EDT [facility] CO2 24.8 22.0 - 29.0 mmol/L 04/07/2025 10:19 AM EDT [facility] Calcium 8.6 8.6 - 10.5 mg/dL 04/07/2025 10:19 AM EDT [facility] BUN/Creatinine Ratio 17.0 7.0 - 25.0 04/07/2025 10:19 AM EDT [facility] Anion Gap 9.2 5.0 - 15.0 mmol/L 04/07/2025 10:19 AM EDT [facility] eGFR 113.2 >60.0 mL/min/1.7 3 04/07/2025 10:19 AM EDT [facility] Blood Venipuncture / Unknown 04/07/2025 9:10 AM EDT 04/07/2025 9:38 AM EDT Narrative [facility] - 04/07/2025 10:19 AM EDT [...] DO LAB BLOOD ORDERABLES Final Resul t [facility]
[address] [place] [address], * MRI Tibia Fibula Right With & [...] [place] 04/07/2025 9:58 AM EDT Workstation ID: [id number] Narrative 04/07/2025 9:58 AM EDT MRI TIBIA [...] [place] 04/07/2025 9:58 AM EDT Workstation ID: [id number] Sushil Dean Jr., MD IMG MRI ORDERABLES Mary Beth l Result * Heparin Anti-Xa (04/07/2025 1:42 AM EDT) Heparin Anti-Xa ([facility]) 0.38 0.30 - 0.70 IU/ml 04/07/2025 2:14 AM EDT [facility] Blood Venipuncture / Unknown 04/07/2025 1:42 AM EDT 04/07/2025 1:54 AM EDT Chelsie Turpin [facility] LAB BLOOD ORDERABLES Final R esult [facility]
[address] [place] [address], * Heparin Anti-Xa (04/06/2025 7:16 PM EDT) Heparin Anti-Xa ([facility]) 0.33 0.30 - 0.70 IU/ml 04/06/2025 7:50 PM EDT [facility] Blood Venipuncture / Unknown 04/06/2025 7:16 PM EDT 04/06/2025 7:35 PM EDT Cherri Rogerio [facility] LAB BLOOD ORDERABLES Final Res ult Performing Organization Address City/[facility]/ZIP Co de Phone Number [facility]
[address] [place] [address], * Potassium (04/06/2025 7:16 PM EDT) Potassium 4.0 3.5 - 5.2 mmol/L 04/06/2025 7:53 PM EDT [facility] Blood Venipuncture / Unknown 04/06/2025 7:16 PM EDT 04/06/2025 7:35 PM EDT Jason Álvarez DO LAB BLOOD ORDERABLES Final Resul t Performing Organization Address [facility] Co de Phone Number [facility]
[address] [place] [address], * (ABNORMAL) Heparin Anti-Xa (04/06/2025 12:36 PM EDT) Heparin Anti-Xa ([facility]) 0.24(L) 0.30 - 0.70 IU/ml 04/06/2025 1:23 PM EDT [facility] Blood Venipuncture / Unknown 04/06/2025 12:36 PM EDT 04/06/2025 1:07 PM EDT Una Perla PharmD LAB BLOOD ORDERABLES Final R esult Performing Organization Address City/[facility]/ZIP Co de Phone Number [facility]
[address] [place] [address], * (ABNORMAL) Heparin Anti-Xa (04/06/2025 3:42 AM EDT) Heparin Anti-Xa ([facility]) 0.25(L) 0.30 - 0.70 IU/ml 04/06/2025 5:30 AM EDT [facility] Blood Venipuncture / Unknown 04/06/2025 3:42 AM EDT 04/06/2025 4:59 AM EDT us Chelsie Turpin [facility] LAB BLOOD ORDERABLES Final R esult [facility]
[address] [place] [address], * (ABNORMAL) Basic Metabolic Panel (04/06/2025 3:42 AM EDT) Glucose 94 65 - 99 mg/dL 04/06/2025 5:59 AM EDT [facility] BUN 12.8 6.0 - 20.0 mg/dL 04/06/2025 5:59 AM EDT [facility] Creatinine 0.80 0.76 - 1.27 mg/dL 04/06/2025 5:59 AM EDT [facility] Sodium 138 136 - 145 mmol/L 04/06/2025 5:59 AM EDT [facility] Potassium 3.6 3.5 - 5.2 mmol/L 04/06/2025 5:59 AM EDT [facility] Chloride 103 98 - 107 mmol/L 04/06/2025 5:59 AM EDT [facility] CO2 24.2 22.0 - 29.0 mmol/L 04/06/2025 5:59 AM EDT [facility] Calcium 8.0(L) 8.6 - 10.5 mg/dL 04/06/2025 5:59 AM EDT [facility] BUN/Creatinine Ratio 16.0 7.0 - 25.0 04/06/2025 5:59 AM EDT [facility] Anion Gap 10.8 5.0 - 15.0 mmol/L 04/06/2025 5:59 AM EDT [facility] eGFR 111.9 >60.0 mL/min/1.7 3 04/06/2025 5:59 AM EDT [facility] Blood Venipuncture / Unknown 04/06/2025 3:42 AM EDT 04/06/2025 5:20 AM EDT [facility] - 04/06/2025 5:59 AM EDT GFR [...] DO LAB BLOOD ORDERABLES Final Resul t [facility]
[address] [place] [address], * (ABNORMAL) CBC Auto Differential (04/06/2025 3:41 AM EDT) WBC 10.86(H) 3.40 - 10.80 10*3/mm3 04/06/2025 5:04 AM EDT [facility] RBC 5.08 4.14 - 5.80 10*6/mm3 04/06/2025 5:04 AM EDT [facility] Hemoglobin 13.9 13.0 - 17.7 g/dL 04/06/2025 5:04 AM EDT [facility] Hematocrit 43.7 37.5 - 51.0 % 04/06/2025 5:04 AM EDT [facility] MCV 86.0 79.0 - 97.0 fL 04/06/2025 5:04 AM EDT [facility] MCH 27.4 26.6 - 33.0 pg 04/06/2025 5:04 AM EDT [facility] MCHC 31.8 31.5 - 35.7 g/dL 04/06/2025 5:04 AM [facility] RDW 12.8 12.3 - 15.4 % 04/06/2025 5:04 AM [facility] RDW-SD 40.0 37.0 - 54.0 fl 04/06/2025 5:04 AM [facility] MPV 11.7 6.0 - 12.0 fL 04/06/2025 5:04 AM [facility] Platelets 115(L) 140 - 450 10*3/mm3 04/06/2025 5:04 AM [facility] Neutrophil % 65.3 42.7 - 76.0 % 04/06/2025 5:04 AM [facility] Lymphocyte % 20.5 19.6 - 45.3 % 04/06/2025 5:04 AM [facility] Monocyte % 11.8 5.0 - 12.0 % 04/06/2025 5:04 AM [facility] Eosinophil % 1.8 0.3 - 6.2 % 04/06/2025 5:04 AM [facility] Basophil % 0.3 0.0 - 1.5 % 04/06/2025 5:04 AM [facility] Immature Grans % 0.3 0.0 - 0.5 % 04/06/2025 5:04 AM [facility] Neutrophils, Absolute 7.09(H) 1.70 - 7.00 10*3/mm3 04/06/2025 5:04 AM [facility] Lymphocytes, Absolute 2.23 0.70 - 3.10 10*3/mm3 04/06/2025 5:04 AM [facility] Monocytes, Absolute 1.28(H) 0.10 - 0.90 10*3/mm3 04/06/2025 5:04 AM [facility] Eosinophils, Absolute 0.20 0.00 - 0.40 10*3/mm3 04/06/2025 5:04 AM [facility] Basophils, Absolute 0.03 0.00 - 0.20 10*3/mm3 04/06/2025 5:04 AM EDT [facility] Immature Grans, Absolute 0.03 0.00 - 0.05 10*3/mm3 04/06/2025 5:04 AM EDT [facility] nRBC 0.0 0.0 - 0.2 /100 WBC 04/06/2025 5:04 AM EDT [facility] Blood Venipuncture / Unknown 04/06/2025 3:41 AM EDT 04/06/2025 4:58 AM EDT Jason Álvarez DO LAB BLOOD ORDERABLES Final Resul t Performing Organization Address City/[facility]/ZIP Co de Phone Number [facility]
[address] [place] [address], * Heparin Anti-Xa (04/05/2025 8:43 PM EDT) Heparin Anti-Xa ([facility]) 0.38 0.30 - 0.70 IU/ml 04/05/2025 9:09 PM EDT [facility] Blood Venipuncture / Unknown 04/05/2025 8:43 PM EDT 04/05/2025 8:55 PM EDT Cherri Beatty [facility] LAB BLOOD ORDERABLES Final Res ult [facility]
[address] [place] [address], [place] [phone] * CK (04/05/2025 12:15 PM EDT) Creatine Kinase 140 20 - 200 U/L 04/05/2025 1:31 PM EDT [facility] Blood Venipuncture / Unknown 04/05/2025 12:15 PM EDT 04/05/2025 1:03 PM EDT Carlton Mead MD LAB BLOOD ORDERABLES Final R esult Performing Organization Address City/[facility]/ZIP Co de Phone Number [facility]
[address] [place] [address], * (ABNORMAL) Heparin Anti-Xa (04/05/2025 12:15 PM EDT) Heparin Anti-Xa ([facility]) 0.17(L) 0.30 - 0.70 IU/ml 04/05/2025 1:21 PM EDT [facility] Blood Venipuncture / Unknown 04/05/2025 12:15 PM EDT 04/05/2025 1:04 PM EDT Una LundbergD LAB BLOOD ORDERABLES Final R esult Performing Organization Address [facility] de Phone Number [facility]
[address] [place] [address], * (ABNORMAL) aPTT (04/05/2025 3:54 AM EDT) PTT 35.3(L) 60.0 - 90.0 seconds 04/05/2025 4:31 AM EDT [facility] Blood Venipuncture / Unknown 04/05/2025 3:54 AM EDT 04/05/2025 4:15 AM EDT Narrative [facility] - 04/05/2025 4:31 AM EDT PTT = The equivalent PTT values for the therapeutic range of heparin levels at 0.3 to 0.5 U/ml are 60 to 70 seconds. Una Perla PharmD LAB BLOOD ORDERABLES Final R esult Performing Organization Address City/[facility] Co de Phone Number [facility]
[address] [place] [address], * Heparin Anti-Xa (04/05/2025 3:54 AM EDT) Heparin Anti-Xa ([facility]) 0.30 0.30 - 0.70 IU/ml 04/05/2025 4:32 AM EDT [facility] Blood Venipuncture / Unknown 04/05/2025 3:54 AM EDT 04/05/2025 4:15 AM EDT Una Perla PharmD LAB BLOOD ORDERABLES Final R esult [facility]
[address] [place] [address], * (ABNORMAL) CBC Auto Differential (04/05/2025 3:54 AM EDT) Pathologist [facility] WBC 11.18(H) 3.40 - 10.80 10*3/mm3 04/05/2025 4:20 AM EDT [facility] RBC 5.00 4.14 - 5.80 10*6/mm3 04/05/2025 4:20 AM EDT [facility] Hemoglobin 13.9 13.0 - 17.7 g/dL 04/05/2025 4:20 AM EDT [facility] Hematocrit 42.4 37.5 - 51.0 % 04/05/2025 4:20 AM EDT [facility] MCV 84.8 79.0 - 97.0 fL 04/05/2025 4:20 AM EDT [facility] MCH 27.8 26.6 - 33.0 pg 04/05/2025 4:20 AM EDT [facility] MCHC 32.8 31.5 - 35.7 g/dL 04/05/2025 4:20 AM EDT [facility] RDW 12.9 12.3 - 15.4 % 04/05/2025 4:20 AM EDT [facility] RDW-SD 39.7 37.0 - 54.0 fl 04/05/2025 4:20 AM [facility] MPV 10.2 6.0 - 12.0 fL 04/05/2025 4:20 AM [facility] Platelets 160 140 - 450 10*3/mm3 04/05/2025 4:20 AM [facility] Neutrophil % 73.5 42.7 - 76.0 % 04/05/2025 4:20 AM [facility] Lymphocyte % 14.0(L) 19.6 - 45.3 % 04/05/2025 4:20 AM [facility] Monocyte % 11.0 5.0 - 12.0 % 04/05/2025 4:20 AM [facility] Eosinophil % 0.8 0.3 - 6.2 % 04/05/2025 4:20 AM [facility] Basophil % 0.3 0.0 - 1.5 % 04/05/2025 4:20 AM [facility] Immature Grans % 0.4 0.0 - 0.5 % 04/05/2025 4:20 AM [facility] Neutrophils, Absolute 8.23(H) 1.70 - 7.00 10*3/mm3 04/05/2025 4:20 AM [facility] Lymphocytes, Absolute 1.56 0.70 - 3.10 10*3/mm3 04/05/2025 4:20 AM [facility] Monocytes, Absolute 1.23(H) 0.10 - 0.90 10*3/mm3 04/05/2025 4:20 AM [facility] Eosinophils, Absolute 0.09 0.00 - 0.40 10*3/mm3 04/05/2025 4:20 AM [facility] Basophils, Absolute 0.03 0.00 - 0.20 10*3/mm3 04/05/2025 4:20 AM [facility] Immature Grans, Absolute 0.04 0.00 - 0.05 10*3/mm3 04/05/2025 4:20 AM [facility] nRBC 0.0 0.0 - 0.2 /100 WBC 04/05/2025 4:20 AM EDT [facility] Blood Venipuncture / Unknown 04/05/2025 3:54 AM EDT 04/05/2025 4:16 AM EDT Una Perla PharmD LAB BLOOD ORDERABLES Final R esult [facility]
[address] [place] [address], * (ABNORMAL) Basic Metabolic Panel (04/05/2025 3:54 AM EDT) Glucose 152(H) 65 - 99 mg/dL 04/05/2025 4:40 AM EDT [facility] BUN 17.3 6.0 - 20.0 mg/dL 04/05/2025 4:40 AM EDT [facility] Creatinine 0.92 0.76 - 1.27 mg/dL 04/05/2025 4:40 AM EDT [facility] Sodium 136 136 - 145 mmol/L 04/05/2025 4:40 AM EDT [facility] Potassium 3.9 3.5 - 5.2 mmol/L 04/05/2025 4:40 AM EDT [facility] Chloride 103 98 - 107 mmol/L 04/05/2025 4:40 AM EDT [facility] CO2 24.0 22.0 - 29.0 mmol/L 04/05/2025 4:40 AM EDT [facility] Calcium 7.8(L) 8.6 - 10.5 mg/dL 04/05/2025 4:40 AM EDT [facility] BUN/Creatinine Ratio 18.8 7.0 - 25.0 04/05/2025 4:40 AM EDT [facility] Anion Gap 9.0 5.0 - 15.0 mmol/L 04/05/2025 4:40 AM EDT [facility] eGFR 105.2 >60.0 mL/min/1.7 3 04/05/2025 4:40 AM EDT [facility] Blood Venipuncture / Unknown 04/05/2025 3:54 AM EDT 04/05/2025 4:15 AM EDT Narrative [facility] - 04/05/2025 4:40 AM EDT GFR [...] ORDERABLES Final Re sult Performing Organization Address City/[facility]/ZIP Co de Phone Number [facility]
[address] [place] [address], * (ABNORMAL) aPTT (04/05/2025 12:18 AM EDT) PTT 33.6(L) 60.0 - 90.0 seconds 04/05/2025 12:53 AM EDT [facility] Blood Venipuncture / Unknown 04/05/2025 12:18 AM EDT 04/05/2025 12:37 AM EDT Narrative [facility] - 04/05/2025 12:53 AM EDT PTT = The equivalent PTT values for the therapeutic range of heparin levels at 0.3 to 0.5 U/ml are 60 to 70 seconds. Una LundbergD LAB BLOOD ORDERABLES Final R esult Performing Organization Address [facility]/ZIP Co de Phone Number [facility]
[address] [place] [address], * (ABNORMAL) Protime-INR (04/05/2025 12:18 AM EDT) Protime 15.9(H) 12.2 - 15.3 Seconds 04/05/2025 12:53 AM EDT [facility] INR 1.19(H) 0.89 - 1.12 04/05/2025 12:53 AM EDT [facility] Blood Venipuncture / Unknown 04/05/2025 12:18 AM EDT 04/05/2025 12:37 AM EDT Una Minda AdTapsyD LAB BLOOD ORDERABLES Final R esult Performing Organization Address City/[facility]/ZIP Co de Phone Number [facility]
[address] [place] [address], * Heparin Anti-Xa (04/05/2025 12:18 AM EDT) Pathologist [facility] Heparin Anti-Xa ([facility]) 0.39 0.30 - 0.70 IU/ml 04/05/2025 12:54 AM EDT [facility] Blood Venipuncture / Unknown 04/05/2025 12:18 AM EDT 04/05/2025 12:37 AM EDT Una Perla AdTapsyD LAB BLOOD ORDERABLES Final R esult [facility]
[address] [place] [address], * MRI Tibia Fibula Right With & [...] MD 04/04/2025 11:00 PM EDT Workstation ID: [id number] Narrative 04/04/2025 11:00 PM EDT MRI TIBIA [...] evidence of focal atrophy. Procedure Note Leigh Jnoes MD - 04/04/2025 MRI TIBIA FIBULA RIGHT [...] MD 04/04/2025 11:00 PM EDT Workstation ID: [id number] Leonora Shepherd MD IMG MRI ORDERABLES Final Resu lt * POC Creatinine (04/04/2025 2:49 PM EDT) Pathologist [facility] Creatinine 1.10 0.60 - 1.30 mg/dL 04/07/2025 7:14 PM EDT [facility] Comment:Serial Number: [id number] 7Operator: [id number] Venous Blood 04/04/2025 2:49 PM EDT 04/07/2025 7:14 PM EDT Jason Álvarez DO POINT OF CARE TEST ORDERABLES Fi nal Result [facility]
[address] [place] [address], * (ABNORMAL) CBC Auto Differential (04/04/2025 2:47 PM EDT) WBC 12.72(H) 3.40 - 10.80 10*3/mm3 04/04/2025 2:56 PM EDT [facility] RBC 5.64 4.14 - 5.80 10*6/mm3 04/04/2025 2:56 PM EDT [facility] Hemoglobin 15.3 13.0 - 17.7 g/dL 04/04/2025 2:56 PM EDT [facility] Hematocrit 47.9 37.5 - 51.0 % 04/04/2025 2:56 PM EDT [facility] MCV 84.9 79.0 - 97.0 fL 04/04/2025 2:56 PM EDT [facility] MCH 27.1 26.6 - 33.0 pg 04/04/2025 2:56 PM EDT [facility] MCHC 31.9 31.5 - 35.7 g/dL 04/04/2025 2:56 PM EDT [facility] RDW 13.1 12.3 - 15.4 % 04/04/2025 2:56 PM EDT [facility] RDW-SD 40.3 37.0 - 54.0 fl 04/04/2025 2:56 PM EDT [facility] MPV 9.4 6.0 - 12.0 fL 04/04/2025 2:56 PM EDT [facility] Platelets 232 140 - 450 10*3/mm3 04/04/2025 2:56 PM EDT [facility] Neutrophil % 74.9 42.7 - 76.0 % 04/04/2025 2:56 PM EDT [facility] Lymphocyte % 13.1(L) 19.6 - 45.3 % 04/04/2025 2:56 PM EDT [facility] Monocyte % 11.2 5.0 - 12.0 % 04/04/2025 2:56 PM EDT [facility] Eosinophil % 0.4 0.3 - 6.2 % 04/04/2025 2:56 PM EDT [facility] Basophil % 0.2 0.0 - 1.5 % 04/04/2025 2:56 PM EDT [facility] Immature Grans % 0.2 0.0 - 0.5 % 04/04/2025 2:56 PM EDT [facility] Neutrophils, Absolute 9.52(H) 1.70 - 7.00 10*3/mm3 04/04/2025 2:56 PM EDT [facility] Lymphocytes, Absolute 1.66 0.70 - 3.10 10*3/mm3 04/04/2025 2:56 PM EDT [facility] Monocytes, Absolute 1.43(H) 0.10 - 0.90 10*3/mm3 04/04/2025 2:56 PM EDT [facility] Eosinophils, Absolute 0.05 0.00 - 0.40 10*3/mm3 04/04/2025 2:56 PM EDT [facility] Basophils, Absolute 0.03 0.00 - 0.20 10*3/mm3 04/04/2025 2:56 PM EDT [facility] Immature Grans, Absolute 0.03 0.00 - 0.05 10*3/mm3 04/04/2025 2:56 PM EDT [facility] nRBC 0.0 0.0 - 0.2 /100 WBC 04/04/2025 2:56 PM EDT [facility] Blood Venipuncture / Unknown 04/04/2025 2:47 PM EDT 04/04/2025 2:52 PM EDT us Mario Crowley DO LAB BLOOD ORDERABLES Fin al Result [facility]
[address] [place] [address], * (ABNORMAL) C-reactive Protein (04/04/2025 2:47 PM EDT) [facility] C-Reactive Protein 8.57(H) 0.00 - 0.50 mg/dL 04/04/2025 3:26 PM EDT [facility] Blood Venipuncture / Unknown 04/04/2025 2:47 PM EDT 04/04/2025 2:52 PM EDT [facility] Fin al Result Performing Organization Address [facility] Co de Phone Number [facility]
[address] [place] [address], * (ABNORMAL) Sedimentation Rate (04/04/2025 2:47 PM EDT) Pathologist [facility] Sed Rate 51(H) 0 - 15 mm/hr 04/04/2025 3:06 PM EDT [facility] Blood Venipuncture / Unknown 04/04/2025 2:47 PM EDT 04/04/2025 2:52 PM EDT Mario Ortiz [facility] LAB BLOOD ORDERABLES Fin al Result Performing Organization Address [facility] de Phone Number [facility]
[address] [place] [address], * Comprehensive Metabolic Panel (04/04/2025 2:47 PM EDT) [facility] Glucose 90 65 - 99 mg/dL 04/04/2025 3:26 PM EDT [facility] BUN 18.3 6.0 - 20.0 mg/dL 04/04/2025 3:26 PM EDT [facility] Creatinine 0.94 0.76 - 1.27 mg/dL 04/04/2025 3:26 PM EDT [facility] Sodium 136 136 - 145 mmol/L 04/04/2025 3:26 PM EDT [facility] - [facility] Potassium 3.8 3.5 - 5.2 mmol/L 04/04/2025 3:26 PM EDT [facility] Chloride 100 98 - 107 mmol/L 04/04/2025 3:26 PM EDT [facility] CO2 25.3 22.0 - 29.0 mmol/L 04/04/2025 3:26 PM [facility] Calcium 8.6 8.6 - 10.5 mg/dL 04/04/2025 3:26 PM EDT [facility] Total Protein 7.3 6.0 - 8.5 g/dL 04/04/2025 3:26 PM T [facility] Albumin 4.1 3.5 - 5.2 g/dL 04/04/2025 3:26 PM EDT [facility] ALT (SGPT) 26 1 - 41 U/L 04/04/2025 3:26 PM EDT [facility] AST (SGOT) 25 1 - 40 U/L 04/04/2025 3:26 PM EDT [facility] Alkaline Phosphatase 106 39 - 117 U/L 04/04/2025 3:26 PM T [facility] Total Bilirubin 1.0 0.0 - 1.2 mg/dL 04/04/2025 3:26 PM EDT [facility] Globulin 3.2 gm/dL 04/04/2025 3:26 PM T [facility] Comment:Calculated Result A/G Ratio 1.3 g/dL 04/04/2025 3:26 PM [facility] BUN/Creatinine Ratio 19.5 7.0 - 25.0 04/04/2025 3:26 PM [facility] Anion Gap 10.7 5.0 - 15.0 mmol/L 04/04/2025 3:26 PM T [facility] eGFR 102.5 >60.0 mL/min/1.7 3 04/04/2025 3:26 PM T [facility] Blood Venipuncture / Unknown 04/04/2025 2:47 PM EDT 04/04/2025 2:52 PM EDT [facility] - 04/04/2025 3:26 PM EDT GFR [...] DO LAB BLOOD ORDERABLES Fin al Result [facility]
[id number] [id number], documented in this encounter Visit Diagnoses Diagnosis [...] Hours, First dose (after last reorder) on [place] 04/06/25 at 1000, For 10 days, Caution: [...] 04/05/2025 3:33 PM EDT 2,000 Units heparin 43013 units/250 mL (100 units/mL) in 0.45 % [...] BPA Driven Protocol Open Order & [facility] Electrolyte Replacement Protocol Algorithm to View Details [...] given) 0837 (Given - Provider: Amber Salazar, LAND EXAMINER)2006 (Given - Provider: Loree Reese RRT)2129 (Canceled Entry - Provider: Loree Hugh, LAND EXAMINER) 1037 (Given - Provider: Leonora Chen, KELL) [...] Continuous Medication Order 04/09/2025 04/10/2025 04/11/2025 heparin 14014 units/250 mL (100 units/mL) in 0.45 % [...] Rosenberg RN)1006 (Given - Provider: Shirley Hart, LU)1220 [...] BPA Driven Protocol Open Order & [facility] Electrolyte Replacement Protocol Algorithm to View Details [...] BPA Driven Protocol Open Order & [facility] Electrolyte Replacement Protocol Algorithm to View Details [...] documented as of this encounter Care Teams Wind Tunnel Engineer Relationship Specialty Start Date End Date Provider, No Known [facility] [place] [address] PCP - General 05/09/23 documented as of this encounter
--- OUTSIDE RECORDS SUMMARY | 2025-04-07 18:00 | XMS_ITS | Encounter Summary ---
[facility] Address [address] [place] [address] Care Team Providers Care Tractor Crane Operator Name Role Phone Provider, No Known Primary Care Provider Unavail able Reason for Visit * Reason Comments Leg Swelling * Auth/Cert Specialty Diagnoses / Procedures Referred By Contac t Referred To Contact Diagnoses Right BKA infection Referral ID Status Reason Start Date Expiration Date Visits Re quested Visits Authorized [id number] 1 1 Encounter Details Date Type Department Care Team (Late st Contact Info) Description 04/07/2025 6:00 PM EDT - 04/07/2025 6:52 PM EDT Surgery [facility] OR [address] [place] [address] Sushil Dean Jr., MD [address] [place] [address] [address] [place] [id number] LEG DEBRIDEMENT, IRRIGATION Social History Tobacco Use Types Packs/Day Years Used Date Smoking Tobacco: Never Smokeless Tobacco: Never Tobacco Cessation:Counseling Given: Not Answered Alcohol Use Standard Drinks/Week Comments Not Currently 0 (1 standard drink = 0.6 oz pur e alcohol) [facility] Utilities Answer Date Recorded In the past 12 months has [employer] electric, gas, oil, or water company threatened [...] 2:25 PM EDT Cherri Grimm RN * [place] Suicide Severity Rating Scale (Screener/Recent Self-Report) Question [...] from the original note were not included. [facility] DISCHARGE SUMMARY Patient Name: Won [...] Date/Time Wound Culture - Swab, Leg, Right [[id number]] (Abnormal) (Susceptibility) Collected: 04/07/252106 Lab Status: Final [...] Units Date/Time FL C Arm During Surgery [[id number]] Resulted: 04/07/252137 Updated: 04/07/252137 Narrative: This procedure was auto-finalized with no dictation required. MRI Tibia Fibula Right With & Without Contrast [[id number]] Collected: 04/07/25 0938 Updated: 04/07/25 1001 Narrative: [...] Buenrostro 04/07/2025 9:58 AM EDT Workstation ID: [id number] MRI Tibia Fibula Right With & Without Contrast [[id number]] Collected: 04/04/252256 Updated: 04/04/252302 Narrative: MRI TIBIA [...] represent a small area of phlegmonous change ([id number] image 10) measuring approximately 1.6 cm which [...] MD 04/04/2025 11:00 PM EDT Workstation ID: [id number] Pending Labs Order Current Status Fungus Culture [...] Male) Date of 1980 Social Security Number [id number] [place] [address] [place] [address] Roman Catholic Unknown Marital Status Unknown Admission Date 04/04/2025 Admission Type Emergency Admitting Provider Jadyn Richardson DO Attending Provider Jadyn Richardson DO Department, Room/Bed [facility] 5G, S565/1 Discharge Date Discharge Disposition Discharge Destination Attending Provider: Jadyn Richardson DO Allergies: Ceftin [Cefuroxime], Keflex [Cephalexin], Latex Isolation: None Infection: MRSA (05/11/23) Code Status: CPR Ht: 180.3 cm (71 ) Wt: 134 kg (295 lb) Admission Cmt: None 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 Insurance as of 04/04/2025 Primary Coverage Payor Plan Insurance Group Employer/Plan Group [place] [id number] Payor Plan Address Payor Plan Phone Number Payor Plan Fax Number Effective Dates [employer] [address] [address] 08/10/2023 - None Entered Formerly [facility] [id number] Subscriber Name Subscriber Date Member ID WON DENNIS 1980 [id number] Emergency Contacts Pickle Sorter (Rel.) Home Phone Work Phone Mobile Phone Avril Dennis (Spouse) -- -- [phone] Robert Hackett (Relative) -- -- [phone] [facility] 5G [address] [facility] [address] Patient: ROOM: [facility] Won Dennis [address] [place] [address] : 1980 SSN: [id number] Sex: M PCP: Provider, No Known Emergency Contact Information Name Relation Home Work Mobile Avril Dennis Spouse [phone] Other Contacts Name Relation Home Work Mobile Robert Hackett Relative [phone] INSURANCE PAYOR PLAN [employer] # SUBSCRIBER ID Primary: Secondary: MEDICARE [employer] [id number] Admitting Diagnosis: 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 He is known to Dr. [...] wound 05/09/25. HDS, on Heparin gtt. Currently [facility] has been asked to manage [...] Jr., MD, 20 mg at 04/09/25906 heparin 35485 units/250 mL (100 units/mL) in 0.45 % [...] mg, 0.4 mg, Sublingual, Q5 Min PRN, uSshil Dean Jr., MD ondansetron ODT (ZOFRAN-ODT) disintegrating [...] vancomycin 2750 mg/500 mL 0.9% NS IVPB ([facility]) Ordering Provider: Mario Crowley, DO 20 [...] Units Date/Time FL C Arm During Surgery [[id number]] Resulted: 04/07/252137 Updated: 04/07/252137 Narrative: This procedure was auto-finalized with no dictation required. MRI Tibia Fibula Right With & Without Contrast [[id number]] Collected: 04/07/2538 Updated: 04/07/25 1001 Narrative: MRI [...] Buenrostro 04/07/2025 9:58 AM EDT Workstation ID: [id number] Impression: Recurrent Right BKA stump abscess/cellulitis- this [...] his disposition with the pharmacist at [facility] today. I will sign off Outpatient orders: 1. Outpatient intravenous antibiotic therapy: Daptomycin 800 mg IV daily to be supplied by [facility] 2. Home health to perform weekly PICC [...] Date/Time Wound Culture - Swab, Leg, Right [[id number]] (Abnormal) (Susceptibility) Collected: 04/07/252106 Lab Status: Final [...] Row Name 04/06/25 1143 Sit-Stand Transfer Sit-Stand [place] (Transfers) modified independence - Comment, (Sit-Stand Transfer) Pt stood from recliner. Not holding onto walker, pt able to pull his pants up while balancing on his one leg. -LM Row Name 04/06/25 1143 Gait/Stairs (Locomotion) Geary Level (Gait) modified independence - Distance in [...] Motion bilateral lower extremity ROM WFL -LM [place] Name 04/06/25 1145 Strength Comprehensive (MMT) General Manual Muscle Testing (MMT) Assessment no strength deficits identified BLEs -LM [place] Name 04/06/25 1145 Balance Balance Assessment sitting [...] home at d/c. PT signing off. -LM [place] Name 04/06/25 1146 Therapy Assessment/Plan (PT) Criteria for Skilled Interventions Met (PT) no;no problems identified which require skilled intervention -LM Therapy Frequency (PT) evaluation only -LM Predicted Duration of Therapy Intervention (PT) Eval Only -LM [place] Name 04/06/25 1146 Vital Signs Pretreatment Heart Rate (beats/min) 86 -LM Posttreatment Heart Rate (beats/min) 96 -LM Pre SpO2 (%) 95 -LM O2 Delivery Pre Treatment room air -LM Post SpO2 (%) 96 -LM O2 Delivery Post Treatment room air -LM Pre Patient Position Sitting -LM Post Patient Position Sitting -LM [place] Name 04/06/25 1146 Positioning and Restraints Pre-Treatment [...] 6 Clicks Basic Mobility (PT) - User Cbarera (r) = Recorded By, (t) = Taken By, (c) = Cosigned By Initials Name Provider Type Susan Pugh, BRIANA Physical Therapist Zandra Roy RN Registered Nurse Physical Therapy Education Title: PT OT CHILD CUSTODY EVALUATOR Therapies (Done) Topic: Physical Therapy (Done) Point: Mobility training (Done) Learning Progress Summary Patient Acceptance, E, VU,DU by at 04/06/2025 1147 Point: Precautions (Done) Learning Progress Summary Patient Acceptance, E, VU,DU by at 04/06/2025 1147 User Cabrera Initials Effective Dates Name Provider Type [facility] 01/24/25 - Susan Cavazos, PT Physical [...] Description Service Date Service Provider Modifiers Qty [id number] PT EVAL LOW COMPLEXITY 3 04/06/2025 Susan [...] from the original note were not included. [facility] PROGRESS NOTE Patient Name: Won [...] Date/Time Wound Culture - Swab, Leg, Right [[id number]] (Abnormal) (Susceptibility) Collected: 04/07/252106 Lab Status: Final [...] INFECTIOUS DISEASE Progress Note Won Dennis 1980 [id number] Date of Consult: 04/10/2025 Admission Date: 04/04/2025 [...] which prompted him to seek treatment at [facility]. He is known to Dr. [...] wound 05/09/25. HDS, on Heparin gtt. Currently [facility] has been asked to manage [...] IRRIGATION; Surgeon: Sushil Dean Jr., MD; Location: [facility]; Service: Orthopedics; Laterality: Right; PLACEMENT OF [...] Jr., MD, 20 mg at 04/09/25906 heparin 83243 units/250 mL (100 units/mL) in 0.45 % [...] Units Date/Time FL C Arm During Surgery [[id number]] Resulted: 04/07/252137 Updated: 04/07/252137 Narrative: This procedure was auto-finalized with no dictation required. MRI Tibia Fibula Right With & Without Contrast [[id number]] Collected: 04/07/25 0938 Updated: 04/07/25 1001 Narrative: [...] Chitra 04/07/2025 9:58 AM EDT Workstation ID: [id number] Impression: Recurrent Right BKA stump abscess/cellulitis- this [...] his disposition with the pharmacist at [facility] today. I will sign off Outpatient orders: 1. Outpatient intravenous antibiotic therapy: Daptomycin 800 mg IV daily to be supplied by [facility] 2. Home health to perform weekly PICC [...] MD 04/10/2025 07:38 EDT * Larisa Hamilton, [facility] - 04/10/2025 7:17 AM [...] 0500 0.30 11 -- -- 11 1200 [facility] 04/05 1215 0.17 11 1999 [...] from the original note were not included. [facility] PROGRESS NOTE Patient Name: Won [...] Date/Time Wound Culture - Swab, Leg, Right [[id number]] (Abnormal) Collected: 04/07/252106 Lab Status: Preliminary result [...] Jason Álvarez DO 04/09/25 * Larisa Hamilton, [facility] - 04/09/2025 11:36 AM [...] 0500 0.30 11 -- -- 11 1200 [facility] 04/05 1215 0.17 11 1999 [...] INFECTIOUS DISEASE Progress Note Won Dennis 1980 [id number] Date of Consult: 04/09/2025 Admission Date: 04/04/2025 [...] which prompted him to seek treatment at [facility]. He is known to Dr. Dean. He denies recent antibiotics. He has anintolerance to keflex, he became severely nauseated with infusion. MRI completed yesterday demonstrates area of hypoatttenuation with small area of phlegmonous change. No osteomyelitis. No knee jointeffusion. Denies n/v, or fever. No other symptoms. WBC count 12.7 on admission with sed rate of 51,CRP 8.57. Creatinine normal. No cultures obtained here. Known MRSA from previous wound 05/09/25. HDS, on Heparin gtt. Currently [facility] has been asked to manage [...] Surgeon: Sushil Dean Jr., MD; Location: [facility]; Service: Orthopedics; Laterality: Right; PLACEMENT OF WOUND VAC Right 04/07/2025 Procedure: WOUND VACUUM ASSISTED CLOSURE; Surgeon: Sushil Dean Jr., MD; Location: [facility]; Service: Orthopedics; Laterality: Right; History reviewed. [...] MD, 20 mg at 04/08/25 0800 heparin 71793 units/250 mL (100 units/mL) in 0.45 % [...] Units Date/Time FL C Arm During Surgery [[id number]] Resulted: 04/07/252137 Updated: 04/07/252137 Narrative: This procedure was auto-finalized with no dictation required. MRI Tibia Fibula Right With & Without Contrast [[id number]] Collected: 04/07/25937 Updated: 04/07/25 1001 Narrative: MRI [...] Buenrostro 04/07/2025 9:58 AM EDT Workstation ID: [id number] Impression: Recurrent Right BKA stump abscess/cellulitis- this [...] from the original note were not included. [facility] PROGRESS NOTE Patient Name: Won [...] Buenrostro 04/07/2025 9:58 AM EDT Workstation ID: [id number] I have personally reviewed the therapy plans: [...] Jason DO Preeti 04/08/25 * Larisa Hamilton, [facility] - 04/08/2025 11:48 AM [...] 11 1200 RN 04/05 1215 0.17 11 2000 +3 14 2100 RN Pump checked 04/05 [...] INFECTIOUS DISEASE Progress Note Won Dennis 1980 [id number] Date of Consult: 04/08/2025 Admission Date: 04/04/2025 [...] which prompted him to seek treatment at [facility]. He is known to Dr. [...] wound 05/09/25. HDS, on Heparin gtt. Currently [facility] has been asked to manage [...] Dean Jr., MD; Location: [facility]; Service: Orthopedics; Laterality: Right; PLACEMENT OF WOUND VAC Right 04/07/2025 Procedure: WOUND VACUUM ASSISTED CLOSURE; Surgeon: Sushil Dean Jr., MD; Location: [facility]; Service: Orthopedics; Laterality: Right; History reviewed. [...] Jr., MD, 20 mg at 04/07/25950 heparin 85172 units/250 mL (100 units/mL) in 0.45 % [...] Units Date/Time FL C Arm During Surgery [[id number]] Resulted: 04/07/252137 Updated: 04/07/252137 Narrative: This procedure was auto-finalized with no dictation required. MRI Tibia Fibula Right With & Without Contrast [[id number]] Collected: 04/07/25 0938 Updated: 04/07/25 1001 Narrative: [...] Buenrostro 04/07/2025 9:58 AM EDT Workstation ID: [id number] Impression: 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 (Treated by ID in [facility] Harris). Dr. Torres treated him with [...] from the original note were not included. [facility] PROGRESS NOTE Patient Name: Won [...] Buenrostro 04/07/2025 9:58 AM EDT Workstation ID: [id number] I have personally reviewed the therapy plans: [...] Patient Jason Álvarez DO 04/07/25 * Larisa Hamilton, [facility] - 04/07/2025 11:56 AM [...] INFECTIOUS DISEASE Progress Note Won Dennis 1980 [id number] Date of Consult: 04/07/2025 Admission Date: 04/04/2025 [...] which prompted him to seek treatment at [facility]. He is known to Dr. [...] wound 05/09/25. HDS, on Heparin gtt. Currently [facility] has been asked to manage [...] irregular fluid signal foci in the anterior lateral aspect of the BKA stump. Past Medical History: [...] Jason Álvarez DO, 2 puff at 04/06/25 1904 Calcium Replacement - Follow Nurse / BPA Driven Protocol, , Not Applicable, PRN, Leonora Shepherd MD cefTRIAXone (ROCEPHIN) 2,000 mg in sodium chloride 0.9 % 100 mL MBP, 2,000 mg, Intravenous, Q24H, Carlton Mead MD, Last Rate: 200 mL/hr at 04/06/252100, 2,000 mg at 04/06/252100 clotrimazole-betamethasone (LOTRISONE) 1-0.05 % cream 1 Application, 1 Application, Topical, Q12H, Ayah Valentin, TREE SPECIALIST, 1 Application at 04/06/252101 DAPTOmycin (CUBICIN) 800 mg in sodium chloride 0.9 % 50 mL IVPB, 8 mg/kg (Adjusted), Intravenous, Q24H, Carlton Mead MD, Last Rate: 100 mL/hr at 04/06/25 1059, 800 mg at 04/06/25 105 ferrous sulfate tablet 325 mg, 325 mg, Oral, BID, Leonora Shepherd MD, 325 mg at 04/06/252100 furosemide (LASIX) tablet 20 mg, 20 mg, Oral, Daily, Leonora Shepherd MD, 20 mg at 04/06/25 0900 heparin 79483 units/250 mL (100 units/mL) in 0.45 % NaCl infusion, 18 Units/kg/hr, Intravenous, Titrated, Cherri Beatty, [facility], Last Rate: 24.1 mL/hr at 04/07/25217, 18 [...] to Dose Heparin, , Not Applicable, Continuous Minda PAZ Cydney, Jasbir Phosphorus Replacement - Follow Nurse / [...] With & Without Contrast - In process [[id number]] Resulted: 04/07/25828 Updated: 04/07/25828 This result has not been signed. Information might be incomplete. MRI Tibia Fibula Right With & Without Contrast [[id number]] Collected: 04/04/252256 Updated: 04/04/252302 Narrative: MRI TIBIA [...] represent a small area of phlegmonous change (qdmymb23 image 10) measuring approximately 1.6 cm which [...] MD 04/04/2025 11:00 PM EDT Workstation ID: [id number] Impression: 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 (Treated by ID in [facility] Harris). Dr. Torres treated him with [...] mg Daily 04/05/2025 -- Route: Oral heparin 60351 units/250 mL (100 units/mL) in 0.45 % [...] -- Admin Instructions: Open Order & [facility] Electrolyte Replacement Protocol Algorithm to View [...] New start -- +11 11 [address]. 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 04/05 0500 0.30 11 -- -- 11 1200 [facility] 04/05 1215 0.17 11 1999 +3 14 2100 DW RN Pump checked 04/05 2043 0.38 14 -- -- 14 0300 [facility] 04/06 0530 0.25 14 -- +2 16 1200 DW RN Mary 04/06 1236 0.24 16 -- +2 18 1999 [address] Beatty [facility] 04/06/2025 13:48 EDT * Jason Álvarez, DO - 04/06/2025 12:47 PM EDT Images from the original note were not included. [facility] PROGRESS NOTE Patient Name: Won [...] MD 04/04/2025 11:00 PM EDT Workstation ID: [id number] I have personally reviewed the therapy plans: [...] mg Daily 04/05/2025 -- Route: Oral heparin 45484 units/250 mL (100 units/mL) in 0.45 % [...] INFECTIOUS DISEASE follow up. Won Dennis 1980 [id number] Date of Consult: 04/06/2025 Admission Date: 04/04/2025 [...] which prompted him to seek treatment at [facility]. He is known to Dr. [...] wound 05/09/25. HDS, on Heparin gtt. Currently [facility] has been asked to manage [...] MD, 20 mg at 04/06/25 0900 heparin 11761 units/250 mL (100 units/mL) in 0.45 % [...] Tibia Fibula Right With & Without Contrast [[id number]] Collected: 04/04/252256 Updated: 04/04/252302 Narrative: MRI TIBIA [...] represent a small area of phlegmonous change ([id number] image 10) measuring approximately 1.6 cm which [...] MD 04/04/2025 11:00 PM EDT Workstation ID: [id number] Impression: 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 (Treated by ID in [facility] Harris). Dr. Torres treated him with [...] from the original note were not included. [facility] PROGRESS NOTE Patient Name: Won [...] MD 04/04/2025 11:00 PM EDT Workstation ID: [id number] I have personally reviewed the therapy plans: [...] from the original note were not included. [facility] HISTORY AND PHYSICAL Patient Name: [...] MD 04/04/2025 11:00 PM EDT Workstation ID: [id number] Assessment & Plan Assessment & Plan Won [...] 4FR PICC placed by Rhoda Bonner RN [facility] tip verified by 3CG see LDA. * Sushil Dean Jr., MD - 04/05/2025 8:07 AM EDTAssociated Order(s): IP CONSULT TO ORTHOPEDIC SURGERY [facility] [address] [facility] 250 Orthopedic Consult Patient: Won Dennis Date of [...] was evaluated in the emergency department in [place], was discharged with instructions for follow-up. [...] tablet by mouth Daily. 04/03/2025 Morning Lactobacillus-Inulin ([facility]) capsule Take 200 mg by [...] MD 04/04/2025 11:00 PM EDT Workstation ID: [id number] Assessment: Right BKA infection 44-year-old male with [...] DISEASE CONSULT/INITIAL HOSPITAL VISIT Won Dennis 1980 [id number] Date of Consult: 04/05/2025 Admission Date: 04/04/2025 [...] which prompted him to seek treatment at [facility]. He is known to Dr. [...] wound 05/09/25. HDS, on Heparin gtt. Currently [facility] has been asked to manage [...] Leonora Shepherd MD, 40 mg at 04/04/25 4349 sennosides-docusate (PERICOLACE) 8.6-50 MG per tablet 2 [...] MD, 20 mg at 04/05/25 0916 heparin 34806 units/250 mL (100 units/mL) in 0.45 % NaCl infusion, 11 Units/kg/hr, Intravenous, Titrated, Una Perla, PharmD, Last Rate: 14.74 mL/hr at 04/05/25 0113, 11 Units/kg/hr at 04/05/25 011 hydroCHLOROthiazide tablet 12.5 mg, 12.5 mg, Oral, Daily, Leonora Shepherd MD, 12.5 mg at 6 HYDROmorphone (DILAUDID) injection 0.5 mg, 0.5 mg, [...] Tibia Fibula Right With & Without Contrast [[id number]] Collected: 04/04/252256 Updated: 09/26/25 2303 Narrative: MRI TIBIA FIBULA RIGHT W WO [...] MD 04/04/2025 11:00 PM EDT Workstation ID: [id number] Impression: 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 (Treated by ID in [facility] Harris). Dr. Torres treated him with [...] Flowsheet Documentation Taken 04/09/2025 0000 by Bob Rosenbreg RN Medication Review/Management: medications reviewed Taken 04/08/20251942 [...] Jr., MD - 04/08/2025 3:51 PM EDT [facility] OPERATIVE REPORT PATIENT NAME: Won Dennis DATE OF : 1980 PREOP DIAGNOSIS: Right Right below-knee amputation infection POSTOP DIAGNOSIS: Same. PROCEDURE: Right Right 78800: Secondary closure below-knee amputation SURGEON: Sushil Dean MD OPERATIVE TEAM: Intelligence Consultant: Susi Grullon RN Scrub Person: Mary Paredes Scrub Person Extra: Hortencia Toribio Other: Katt Gotti RN; Charis Nevlile RN ANESTHETIST: Anesthesiologist: Ulises Hoffman MD DIAL BRUSHER: Stan Casillas CRNA Student Nurse Dado Operator: Karol Albert SRNA ANESTHESIA: Choice ESTIMATED [...] CULTURE (Canceled) Sushil Dean Jr., MD 04/08/25 8688 Description: RIGHT LEG DEEP WOUND FOR CULTURE [...] [facility] [address] [facility] [address] OPERATIVE REPORT PATIENT NAME: Won Dennis DATE OF : 1980 PREOP DIAGNOSIS: Right Right below knee amputation stump infection POSTOP DIAGNOSIS: Same. PROCEDURE: Right Right 72627: Incision and drainage of surgical site infection 57941: Debridement of skin, subcutaneous tissue, muscle 78513: Wound vacuum-assisted closure SURGEON: Sushil Dean MD OPERATIVE TEAM: Intelligence Consultant: Anum Sanchez RN Scrub Person: Hortencia Toribio; Greald Ivey SENIOR JAVA WEB DEVELOPER: Anesthesiologist: Luci Alonso DO ANESTHESIA: General ESTIMATED [...] sent a portion of soft tissue immediately adjacentto the distal tibia for cultures as well. [...] present and scrubbed for the entire case. Suhsil Dean Jr, MD 04/07/2025 documented in this [...] ago swellling of the area. seen at [facility] yesterday for CT and US, [...] flush 10 mL, 10 mL, Intravenous, PRN, Pacitti, Mario Peter, DO vancomycin 2750 mg/500 mL 0.9% NS [...] this chart in the absence of a granite worker. No orders to display RADIOLOGY: [x] [...] is discharging home with outpatient infusion at [facility]. He has an appointment with [facility] at 8:00 am tomorrow. They will do PICC line dressing changes. CM [facility] spoke with D[facility] at [facility] [...] with KELLEE and given themhis Medicare number [id number], she sent it to Admission. CM spoke with Kerri, with [facility], and explained that he had Medicare A and B. However, it will not cover home infusion. It will be $64.00 a day out of packet. Patients can go to the Infusion center at [facility], and it will cover the cost as an outpatient. He will need to go there every day for infusion. They will be able to do the patients' PICC line dressing changes and lab work. [facility] and start him. He is known for their facility. The Facility will need to run it through his insurance first. CM faxed the orders over to [facility] at [phone]. CM will follow up with them tomorrow at [facility] to make sure they received the orders. Patient is hoping for discharge tomorrow. CM will follow and updated when more is known. Final Discharge Disposition Code 01 - home or self-care Discharge Codes No documentation. Expected Discharge Date and Time Expected Discharge Date Expected Discharge Time Apr 10, 2025 Kathy Johnson RN * Case Management/Social Work - Omar Zavala, RN - 04/09/2025 2:51 PM EDT Continued Stay Note DENISHA Munguia Patient Name: Won Dennis Today's Date: 04/09/2025 Admit Date: 04/04/2025 Plan: Home Discharge Plan Row Name 04/09/25 1311 Plan Plan Home Patient/Family in Agreement with Plan yes Plan Comments CM spoke with patient at bedside today. Wheelchair from [employer] is at bedside. Patient getting PICC line [...] Johnson, RN * Case Management/Social Work - mOar Zavala RN - 04/07/2025 11:49 AM EDT Images from the original note were not included. Discharge Planning Assessment [facility] Patient Name: Won Dennis Today's Date: 04/07/2025 [...] Patient/Family Anticipated Services at Transition case management directorar manager Anticipated family or friend will provide Discharge Needs Assessment Equipment Currently Used at Home glucometer;shower chair;pulse ox;bp cuff;prosthesis;crutches Equipment Needed After Discharge none Discharge Plan Row Name 04/07/25 1144 Plan Plan Home Patient/Family in Agreement with Plan yes Plan Comments CM spoke with patient at bedside today. Patient lives with and his 5 kids in [place] 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 He has walker, cane, shower chair, and crutches. He requested a wheelchair for home. CM will order wheelchair through [employer]. He is not current with home health services. PCP is Dr. Jordan. Insurance is [facility] Medicaid [place]. Patient discharge plan is home with priavte [...] CBC Auto Differential (04/11/2025 3:40 AM EDT) [facility] WBC 7.87 3.40 - 10.80 10*3/mm3 04/11/2025 4:02 AM EDT [facility] RBC 4.70 4.14 - 5.80 10*6/mm3 04/11/2025 4:02 AM EDT [facility] Hemoglobin 12.8(L) 13.0 - 17.7 g/dL 04/11/2025 4:02 AM EDT [facility] Hematocrit 40.5 37.5 - 51.0 % 04/11/2025 4:02 AM EDT [facility] MCV 86.2 79.0 - 97.0 fL 04/11/2025 4:02 AM EDT [facility] MCH 27.2 26.6 - 33.0 pg 04/11/2025 4:02 AM EDT [facility] MCHC 31.6 31.5 - 35.7 g/dL 04/11/2025 4:02 AM EDT [facility] RDW 12.9 12.3 - 15.4 % 04/11/2025 4:02 AM EDT [facility] RDW-SD 40.5 37.0 - 54.0 fl 04/11/2025 4:02 AM EDT [facility] MPV 9.2 6.0 - 12.0 fL 04/11/2025 4:02 AM [facility] Platelets 267 140 - 450 10*3/mm3 [...] BLOOD ORDERABLES Fi nal Result [facility]
[address] [place] [address], * (ABNORMAL) Comprehensive Metabolic Panel (04/11/2025 3:40 AM EDT) Pathologist [facility] Glucose 108(H) 65 - 99 mg/dL 04/11/2025 4:19 AM EDT [facility] BUN 12.5 6.0 - 20.0 mg/dL 04/11/2025 4:19 AM EDT [facility] Creatinine 0.68(L) 0.76 - 1.27 mg/dL 04/11/2025 4:19 AM EDT [facility] Sodium 140 136 - 145 mmol/L 04/11/2025 4:19 AM EDT [facility] Potassium 3.8 3.5 - 5.2 mmol/L 04/11/2025 4:19 AM EDT [facility] Chloride 105 98 - 107 mmol/L 04/11/2025 4:19 AM EDT [facility] CO2 28.2 22.0 - 29.0 mmol/L 04/11/2025 4:19 AM EDT [facility] Calcium 8.2(L) 8.6 - 10.5 mg/dL 04/11/2025 4:19 AM EDT [facility] Total Protein 6.1 6.0 - 8.5 g/dL 04/11/2025 4:19 AM EDT [facility] Albumin 3.1(L) 3.5 - 5.2 g/dL 04/11/2025 4:19 AM EDT [facility] ALT (SGPT) 52(H) 1 - 41 U/L 04/11/2025 4:19 AM EDT [facility] AST (SGOT) 40 1 - 40 U/L 04/11/2025 4:19 AM EDT [facility] Alkaline Phosphatase 99 39 - 117 U/L 04/11/2025 4:19 AM EDT [facility] Total Bilirubin 0.2 0.0 - 1.2 mg/dL 04/11/2025 4:19 AM EDT [facility] Globulin 3.0 gm/dL 04/11/2025 4:19 AM T [facility] Comment:Calculated Result A/G Ratio 1.0 g/dL 04/11/2025 4:19 AM EDT [facility] BUN/Creatinine Ratio 18.4 7.0 - 25.0 04/11/2025 4:19 AM EDT [facility] Anion Gap 6.8 5.0 - 15.0 mmol/L 04/11/2025 4:19 AM [facility] eGFR 117.5 >60.0 mL/min/1.7 3 04/11/2025 4:19 AM T [facility] Blood Venipuncture / Unknown 04/11/2025 3:40 AM EDT 04/11/2025 3:56 AM EDT [facility] - 04/11/2025 4:19 AM EDT [...] LAB BLOOD ORDERABLES Final Result [facility]
[address] [place] [address], * (ABNORMAL) CBC Auto Differential (04/10/2025 3:46 AM EDT) WBC 9.60 3.40 - 10.80 10*3/mm3 04/10/2025 3:56 AM EDT [facility] RBC 4.67 4.14 - 5.80 10*6/mm3 04/10/2025 3:56 AM EDT [facility] Hemoglobin 12.9(L) 13.0 - 17.7 g/dL 04/10/2025 3:56 AM EDT [facility] Hematocrit 40.1 37.5 - 51.0 % 04/10/2025 3:56 AM EDT [facility] MCV 85.9 79.0 - 97.0 fL 04/10/2025 3:56 AM EDT [facility] MCH 27.6 26.6 - 33.0 pg 04/10/2025 3:56 AM EDT [facility] MCHC 32.2 31.5 - 35.7 g/dL 04/10/2025 3:56 AM EDT [facility] RDW 12.9 12.3 - 15.4 % 04/10/2025 3:56 AM EDT [facility] RDW-SD 40.5 37.0 - 54.0 fl 04/10/2025 3:56 AM EDT [facility] MPV 9.5 6.0 - 12.0 fL 04/10/2025 3:56 AM EDT [facility] Platelets 227 140 - 450 10*3/mm3 04/10/2025 3:56 AM EDT [facility] Neutrophil % 59.1 42.7 - 76.0 % 04/10/2025 3:56 AM EDT [facility] Lymphocyte % 29.0 19.6 - 45.3 % 04/10/2025 3:56 AM EDT [facility] Monocyte % 8.1 5.0 - 12.0 % 04/10/2025 3:56 AM EDT [facility] Eosinophil % 3.2 0.3 - 6.2 % 04/10/2025 3:56 AM EDT [facility] Basophil % 0.4 0.0 - 1.5 % 04/10/2025 3:56 AM EDT [facility] Immature Grans % 0.2 0.0 - 0.5 % 04/10/2025 3:56 AM EDT [facility] Neutrophils, Absolute 5.67 1.70 - 7.00 10*3/mm3 04/10/2025 3:56 AM EDT [facility] Lymphocytes, Absolute 2.78 0.70 - 3.10 10*3/mm3 04/10/2025 3:56 AM EDT [facility] Monocytes, Absolute 0.78 0.10 - 0.90 10*3/mm3 04/10/2025 3:56 AM EDT [facility] Eosinophils, Absolute 0.31 0.00 - 0.40 10*3/mm3 04/10/2025 3:56 AM EDT [facility] Basophils, Absolute 0.04 0.00 - 0.20 10*3/mm3 04/10/2025 3:56 AM EDT [facility] Immature Grans, Absolute 0.02 0.00 - 0.05 10*3/mm3 04/10/2025 3:56 AM EDT [facility] nRBC 0.0 0.0 - 0.2 /100 WBC 04/10/2025 3:56 AM EDT [facility] Blood Venipuncture / Unknown 04/10/2025 3:46 AM EDT 04/10/2025 3:53 AM EDT us Jason Álvarez DO LAB BLOOD ORDERABLES Final Resul t [facility]
[address] [place] [address], * (ABNORMAL) Basic Metabolic Panel (04/10/2025 3:46 AM EDT) Glucose 125(H) 65 - 99 mg/dL 04/10/2025 4:20 AM [facility] BUN 15.9 6.0 - 20.0 mg/dL 04/10/2025 4:20 AM [facility] Creatinine 0.77 0.76 - 1.27 mg/dL 04/10/2025 4:20 AM [facility] Sodium 137 136 - 145 mmol/L 04/10/2025 4:20 AM [facility] Potassium 3.9 3.5 - 5.2 mmol/L 04/10/2025 4:20 AM [facility] Chloride 102 98 - 107 mmol/L 04/10/2025 4:20 AM [facility] CO2 [...] 04/10/2025 3:46 AM EDT 04/10/2025 3:52 AM T [facility] - 04/10/2025 4:20 AM EDT [...] fulfill the criteria for CKD. eGFR calculation 2021 CKD-EPI creatinine equation, which does not include race as a factor Jason Álvarez DO LAB BLOOD ORDERABLES Final Resul t [facility]
[address] [place] [address], * Heparin Anti-Xa (04/10/2025 3:46 AM EDT) Heparin Anti-Xa (UFH) 0.35 0.30 - 0.70 IU/ml 04/10/2025 4:23 AM EDT [facility] Blood Venipuncture / Unknown 04/10/2025 3:46 AM EDT 04/10/2025 3:53 AM EDT [facility] LAB BLOOD ORDERABLES Final R esult Performing Organization Address City/[facility]/ZIP Co de Phone Number [facility]
[address] [place] [address], * Heparin Anti-Xa (04/09/2025 10:05 AM EDT) Pathologist [facility] Heparin Anti-Xa (UFH) 0.36 0.30 - 0.70 IU/ml 04/09/2025 11:12 AM EDT [facility] Blood Venipuncture / Unknown 04/09/2025 10:05 AM EDT 04/09/2025 10:47 AM EDT [facility] LAB BLOOD ORDERABLES Final R esult Performing Organization Address City/[facility]/ZIP Co de Phone Number [facility]
[address] [place] [address], * (ABNORMAL) CBC Auto Differential (04/09/2025 4:18 AM EDT) WBC 11.00(H) 3.40 - 10.80 10*3/mm3 04/09/2025 4:50 AM EDT [facility] RBC 4.70 4.14 - 5.80 10*6/mm3 04/09/2025 4:50 AM EDT [facility] Hemoglobin 13.0 13.0 - 17.7 g/dL 04/09/2025 4:50 AM EDT [facility] Hematocrit 40.4 37.5 - 51.0 % 04/09/2025 4:50 AM EDT [facility] MCV 86.0 79.0 - 97.0 fL 04/09/2025 4:50 AM EDT [facility] MCH 27.7 26.6 - 33.0 pg 04/09/2025 4:50 AM EDT [facility] MCHC 32.2 31.5 - 35.7 g/dL 04/09/2025 4:50 AM [facility] RDW 12.8 12.3 - 15.4 % 04/09/2025 4:50 AM [facility] RDW-SD 39.9 37.0 - 54.0 fl 04/09/2025 4:50 AM [facility] MPV 10.0 6.0 - 12.0 fL 04/09/2025 4:50 AM [facility] Platelets 211 140 - 450 10*3/mm3 04/09/2025 4:50 AM [facility] Neutrophil % 74.8 42.7 - 76.0 % 04/09/2025 4:50 AM EDT [facility] Lymphocyte % 15.4(L) 19.6 - 45.3 % 04/09/2025 4:50 AM EDT [facility] Monocyte % 8.5 5.0 - 12.0 % 04/09/2025 4:50 AM EDT [facility] Eosinophil % 0.6 0.3 - 6.2 % 04/09/2025 4:50 AM [facility] Basophil % 0.4 0.0 - 1.5 % 04/09/2025 4:50 AM [facility] Immature Grans % 0.3 0.0 - 0.5 % 04/09/2025 4:50 AM EDT [facility] Neutrophils, Absolute 8.23(H) 1.70 - 7.00 10*3/mm3 04/09/2025 4:50 AM EDT [facility] Lymphocytes, Absolute 1.69 0.70 - 3.10 10*3/mm3 04/09/2025 4:50 AM EDT [facility] Monocytes, Absolute 0.94(H) 0.10 - 0.90 10*3/mm3 04/09/2025 4:50 AM EDT [facility] Eosinophils, Absolute 0.07 0.00 - 0.40 10*3/mm3 04/09/2025 4:50 AM EDT [facility] Basophils, Absolute 0.04 0.00 - 0.20 10*3/mm3 04/09/2025 4:50 AM EDT [facility] Immature Grans, Absolute 0.03 0.00 - 0.05 10*3/mm3 04/09/2025 4:50 AM EDT [facility] nRBC 0.0 0.0 - 0.2 /100 WBC 04/09/2025 4:50 AM EDT [facility] Blood Venipuncture / Unknown 04/09/2025 4:18 AM EDT 04/09/2025 4:31 AM EDT Sushil Dean Jr., MD LAB BLOOD ORDERABLES Fi nal Result [facility]
[address] [place] [address], * Heparin Anti-Xa (04/09/2025 4:18 AM EDT) Heparin Anti-Xa (UFH) 0.41 0.30 - 0.70 IU/ml 04/09/2025 4:53 AM EDT [facility] Blood Venipuncture / Unknown 04/09/2025 4:18 AM EDT 04/09/2025 4:31 AM EDT Una Perla PharmD LAB BLOOD ORDERABLES Final R esult [facility]
[address] [place] [address], * (ABNORMAL) Basic Metabolic Panel (04/09/2025 4:18 AM EDT) Pathologist [facility] Glucose 147(H) 65 - 99 mg/dL 04/09/2025 5:33 AM EDT [facility] BUN 23.0(H) 6.0 - 20.0 mg/dL 04/09/2025 5:33 AM EDT [facility] Creatinine 1.15 0.76 - 1.27 mg/dL 04/09/2025 5:33 AM EDT [facility] Sodium 135(L) 136 - 145 mmol/L 04/09/2025 5:33 AM EDT [facility] Potassium 4.2 3.5 - 5.2 mmol/L 04/09/2025 5:33 AM EDT [facility] Chloride 100 98 - 107 mmol/L 04/09/2025 5:33 AM EDT [facility] CO2 26.0 22.0 - 29.0 mmol/L 04/09/2025 5:33 AM EDT [facility] Calcium 8.2(L) 8.6 - 10.5 mg/dL 04/09/2025 5:33 AM EDT [facility] BUN/Creatinine Ratio 20.0 7.0 - 25.0 04/09/2025 5:33 AM EDT [facility] Anion Gap 9.0 5.0 - 15.0 mmol/L 04/09/2025 5:33 AM EDT [facility] eGFR 80.5 >60.0 mL/min/1.7 3 04/09/2025 5:33 AM EDT [facility] Blood Venipuncture / Unknown 04/09/2025 4:18 AM EDT 04/09/2025 4:29 AM EDT Narrative [facility] - 04/09/2025 5:33 AM EDT GFR [...] ORDERABLES Fi nal Result Performing Organization Address City/[facility] Co de Phone Number [facility]
[address] [place] [address], * Wound Culture - Swab, Leg, Right (04/08/2025 3:40 PM EDT) Wound Culture No growth at 3 days ALIZA 04/11/2025 10:40 AM EDT [facility] Gram Stain Few (2+) WBCs seen 04/11/2025 10:40 AM EDT [facility] Gram Stain No organisms seen 04/11/2025 10:40 AM EDT [facility] Swab Structure of right lower limb / Unknown 04/08/2025 3:40 PM EDT 04/08/2025 8:05 PM EDT Sushil Dean Jr., MD MICROBIOLOGY - GENERAL ORDERABLES Final Result Performing Organization Address [facility]/ZIP Co de Phone Number [facility]
[address] [place] [address], [place] [phone] [facility]
[address] [place] [address], * Anaerobic Culture - Swab, Leg, Right (04/08/2025 3:40 PM EDT) Pathologist [facility] Anaerobic Culture No anaerobes isolated at 5 days ALIZA 04/13/2025 7:24 AM EDT [facility] Swab Structure of right lower limb / Unknown 04/08/2025 3:40 PM EDT 04/08/2025 8:05 PM EDT Sushil Dean Jr., MD MICROBIOLOGY - GENERAL ORDERABLES Final Result [facility]
[address] [place] [address], * Scan Slide (04/08/2025 8:41 AM EDT) Pathologist [facility] RBC Morphology Normal Normal 04/08/2025 11:02 AM EDT [facility] WBC Morphology Normal Normal 04/08/2025 11:02 AM EDT [facility] Platelet Estimate Adequate Normal 04/08/2025 11:02 AM EDT [facility] Clumped Platelets Present None Seen 04/08/2025 11:02 AM EDT [facility] Blood Venipuncture / Unknown 04/08/2025 8:41 AM EDT 04/08/2025 9:10 AM EDT Una LundbergD LAB BLOOD ORDERABLES Final R esult [facility]
[address] [place] [address], [place] [phone] * (ABNORMAL) CBC Auto Differential (04/08/2025 8:41 AM EDT) Pathologist [facility] WBC 10.07 3.40 - 10.80 10*3/mm3 04/08/2025 11:02 AM EDT [facility] RBC 5.01 4.14 - 5.80 10*6/mm3 04/08/2025 11:02 AM [facility] Hemoglobin [...] - 0.5 % 04/08/2025 11:02 AM EDT [facility] Neutrophils, Absolute 8.57(H) 1.70 - 7.00 10*3/mm3 04/08/2025 11:02 AM EDT [facility] Lymphocytes, Absolute 0.94 0.70 - 3.10 10*3/mm3 04/08/2025 11:02 AM EDT [facility] Monocytes, Absolute 0.46 0.10 - 0.90 10*3/mm3 04/08/2025 11:02 AM EDT [facility] Eosinophils, Absolute 0.03 0.00 - 0.40 10*3/mm3 04/08/2025 11:02 AM EDT [facility] Basophils, Absolute 0.02 0.00 - 0.20 10*3/mm3 04/08/2025 11:02 AM EDT [facility] Immature Grans, Absolute 0.05 0.00 - 0.05 10*3/mm3 04/08/2025 11:02 AM EDT [facility] nRBC 0.0 0.0 - 0.2 /100 WBC 04/08/2025 11:02 AM T [facility] Blood Venipuncture / Unknown 04/08/2025 8:41 AM EDT 04/08/2025 9:10 AM EDT Una Perla PharmD LAB BLOOD ORDERABLES Final R esult [facility]
[address] [place] [address], * (ABNORMAL) Basic Metabolic Panel (04/08/2025 8:41 AM EDT) Glucose 125(H) 65 - 99 mg/dL 04/08/2025 9:51 AM EDT [facility] BUN 13.2 6.0 - 20.0 mg/dL 04/08/2025 9:51 AM EDT [facility] Creatinine 0.69(L) 0.76 - 1.27 mg/dL 04/08/2025 9:51 AM EDT [facility] Sodium 136 136 - 145 mmol/L 04/08/2025 9:51 AM EDT [facility] Potassium 4.6 3.5 - 5.2 mmol/L 04/08/2025 9:51 AM EDT [facility] Chloride 102 98 - 107 mmol/L 04/08/2025 9:51 AM EDT [facility] CO2 23.5 22.0 - 29.0 mmol/L 04/08/2025 9:51 AM EDT [facility] Calcium 8.4(L) 8.6 - 10.5 mg/dL 04/08/2025 9:51 AM EDT [facility] BUN/Creatinine Ratio 19.1 7.0 - 25.0 04/08/2025 9:51 AM EDT [facility] Anion Gap 10.5 5.0 - 15.0 mmol/L 04/08/2025 9:51 AM EDT [facility] eGFR 117.0 >60.0 mL/min/1.7 3 04/08/2025 9:51 AM EDT [facility] Blood Venipuncture / Unknown 04/08/2025 8:41 AM EDT 04/08/2025 9:09 AM EDT [facility] - 04/08/2025 9:51 AM EDT [...] BLOOD ORDERABLES Fi nal Result [facility]
[address] [place] [address], [place] [phone] * Heparin Anti-Xa (04/08/2025 8:41 AM EDT) Pathologist [facility] Heparin Anti-Xa (UFH) 0.33 0.30 - 0.70 IU/ml 04/08/2025 9:40 AM EDT [facility] Blood Venipuncture / Unknown 04/08/2025 8:41 AM EDT 04/08/2025 9:10 AM EDT us Sushil Dean Jr., MD LAB BLOOD ORDERABLES Fi nal Result Performing Organization Address [facility] Co de Phone Number [facility]
[address] [place] [address], [place] [phone] * [place] C Arm During Surgery (04/07/2025 [...] seen 04/11/2025 10:40 AM EDT [facility] Gram Stain No organisms seen 04/11/2025 10:40 AM EDT [facility] Swab Structure of right lower limb / Unknown Collection / Unknown 04/07/2025 9:14 PM EDT 04/08/2025 4:36 AM EDT us Sushil Dean Jr., MD MICROBIOLOGY - GENERAL ORDERABLES Final Result Performing Organization Address [facility]/State/ZIP Co de Phone Number [facility]
[address] [place] [address], [facility]
[address] [place] [address], * Anaerobic Culture - Swab, Leg, Right (04/07/2025 9:14 PM EDT) Anaerobic Culture No anaerobes isolated at 5 days ALIZA 04/13/2025 7:21 AM EDT [facility] Swab Structure of right lower limb / Unknown Collection / Unknown 04/07/2025 9:14 PM EDT 04/08/2025 4:36 AM EDT Sushil Dean Jr., MD MICROBIOLOGY - GENERAL ORDERABLES Final Result Performing Organization Address City/[facility]/ZIP Co de Phone Number [facility]
[address] [place] [address], * Anaerobic Culture - Tissue, Leg (04/07/2025 9:13 PM EDT) Anaerobic Culture No anaerobes isolated at 5 days ALIZA 04/13/2025 7:21 AM EDT [facility] Tissue Lower limb structure / Unknown Collection / Unknown 04/07/2025 9:13 PM EDT 04/08/2025 4:54 AM EDT Jason Álvarez DO MICROBIOLOGY - GENERAL ORDERABLE S Final Result [facility]
[address] [place] [address], * Tissue / Bone Culture - Tissue, Leg, Right (04/07/2025 9:13 PM EDT) Tissue Culture No growth at 3 days ALIZA 04/11/2025 10:36 AM EDT [facility] Gram Stain Rare (1+) WBCs seen 04/11/2025 10:36 AM EDT [facility] Gram Stain No organisms seen 04/11/2025 10:36 AM EDT [facility] Tissue Structure of right lower limb / Unknown 04/07/2025 9:13 PM EDT 04/08/2025 4:54 AM EDT Sushil Dean Jr., MD MICROBIOLOGY - GENERAL ORDERABLES Final Result [facility]
[address] [place] [address], [place] [phone] [facility]
[address] [place] [address], [place] [phone] * (ABNORMAL) Wound Culture - Swab, Leg, Right (04/07/2025 9:07 PM EDT) Wound Culture Light growth (2+) Staphylococcus aureus, MRSA(A) ALIZA 04/10/2025 10:38 AM EDT [facility] Comment: Methicillin resistant Staphylococcus aureus, Patient may be an isolation risk. Gram Stain Few (2+) WBCs seen 04/10/2025 10:38 AM EDT [facility] Gram Stain No organisms seen 10:38 AM EDT [facility] Swab [...] Final Result Performing Organization Address [facility] de Phone Number [facility]
[address] [place] [address], [facility]
[address] [place] [address], * Anaerobic Culture - Swab, Leg, Right (04/07/2025 9:07 PM EDT) [facility] Anaerobic Culture No anaerobes isolated at 5 days ALIZA 04/13/2025 7:21 AM EDT [facility] Swab Structure of right lower limb / Unknown Collection / Unknown 04/07/2025 9:07 PM EDT 04/08/2025 4:36 AM EDT Sushil Dean Jr., MD MICROBIOLOGY - GENERAL ORDERABLES Final Result Performing Organization Address [facility] de Phone Number [facility]
[address] [place] [address], * Heparin Anti-Xa (04/07/2025 9:10 AM EDT) [facility] Heparin Anti-Xa ([facility]) 0.30 0.30 - 0.70 IU/ml 04/07/2025 10:12 AM EDT [facility] Blood Venipuncture / Unknown 04/07/2025 9:10 AM EDT 04/07/2025 9:38 AM EDT Una Perla PharmD LAB BLOOD ORDERABLES Final R esult Performing Organization Address [facility] de Phone Number [facility]
[address] [place] [address], * (ABNORMAL) CBC Auto Differential (04/07/2025 9:10 AM EDT) [facility] WBC 8.63 3.40 - 10.80 10*3/mm3 04/07/2025 9:50 AM [facility] RBC 5.23 4.14 - 5.80 10*6/mm3 04/07/2025 9:50 AM EDT [facility] Hemoglobin 14.7 13.0 - 17.7 g/dL 04/07/2025 9:50 AM [facility] Hematocrit 44.8 37.5 - 51.0 % 04/07/2025 9:50 AM EDT [facility] MCV 85.7 79.0 - 97.0 fL 04/07/2025 9:50 AM [facility] MCH 28.1 26.6 - 33.0 pg 04/07/2025 9:50 AM [facility] MCHC 32.8 31.5 - 35.7 g/dL 04/07/2025 9:50 AM [facility] RDW 12.8 12.3 - 15.4 % 04/07/2025 9:50 AM [facility] RDW-SD 39.9 37.0 - 54.0 fl 04/07/2025 9:50 AM [facility] MPV 10.8 6.0 - 12.0 fL 04/07/2025 9:50 AM [facility] Platelets 149 140 - 450 10*3/mm3 04/07/2025 9:50 AM [facility] Neutrophil % 66.7 42.7 - 76.0 % 04/07/2025 9:50 AM [facility] Lymphocyte % 20.5 19.6 - 45.3 % 04/07/2025 9:50 AM [facility] Monocyte % 9.8 5.0 - 12.0 % 04/07/2025 9:50 AM [facility] Eosinophil % 2.1 0.3 - 6.2 % 04/07/2025 9:50 AM [facility] Basophil % 0.3 0.0 - 1.5 % 04/07/2025 9:50 AM EDT [facility] Immature Grans % 0.6(H) 0.0 - 0.5 % 04/07/2025 9:50 AM EDT [facility] Neutrophils, Absolute 5.75 1.70 - 7.00 10*3/mm3 04/07/2025 9:50 AM EDT [facility] Lymphocytes, Absolute 1.77 0.70 - 3.10 10*3/mm3 04/07/2025 9:50 AM EDT [facility] Monocytes, Absolute 0.85 0.10 - 0.90 10*3/mm3 04/07/2025 9:50 AM EDT [facility] Eosinophils, Absolute 0.18 0.00 - 0.40 10*3/mm3 04/07/2025 9:50 AM EDT [facility] Basophils, Absolute 0.03 0.00 - 0.20 10*3/mm3 04/07/2025 9:50 AM EDT [facility] Immature Grans, Absolute 0.05 0.00 - 0.05 10*3/mm3 04/07/2025 9:50 AM EDT [facility] nRBC 0.0 0.0 - 0.2 /100 WBC 04/07/2025 9:50 AM EDT [facility] Blood Venipuncture / Unknown 04/07/2025 9:10 AM EDT 04/07/2025 9:38 AM EDT us Jason Álvarez DO LAB BLOOD ORDERABLES Final Resul t [facility]
[address] [place] [address], * (ABNORMAL) Basic Metabolic Panel (04/07/2025 9:10 AM EDT) [facility] Signature Glucose 112(H) 65 - 99 mg/dL 04/07/2025 10:19 AM EDT [facility] BUN 13.1 6.0 - 20.0 mg/dL 04/07/2025 10:19 AM EDT [facility] Creatinine 0.77 0.76 - 1.27 mg/dL 04/07/2025 10:19 AM T [facility] Sodium 139 136 - 145 mmol/L 04/07/2025 10:19 AM T [facility] Potassium 4.2 3.5 - 5.2 mmol/L 04/07/2025 10:19 AM T [facility] Comment:Specimen hemolyzed. Result may be falsely elevated. Chloride 105 98 - 107 mmol/L 04/07/2025 10:19 AM EDT [facility] CO2 24.8 22.0 - 29.0 mmol/L 04/07/2025 10:19 AM T [facility] Calcium 8.6 8.6 - 10.5 mg/dL 04/07/2025 10:19 AM [facility] BUN/Creatinine Ratio 17.0 7.0 - 25.0 04/07/2025 10:19 AM T [facility] Anion Gap 9.2 5.0 - 15.0 mmol/L 04/07/2025 10:19 AM [facility] eGFR 113.2 >60.0 mL/min/1.7 3 04/07/2025 10:19 AM [facility] Blood Venipuncture / Unknown 04/07/2025 9:10 AM EDT 04/07/2025 9:38 AM EDT [facility] - 04/07/2025 10:19 AM EDT [...] ORDERABLES Final Resul t [facility]
[address] [place] [address], * MRI Tibia Fibula Right With & [...] [place] 04/07/2025 9:58 AM EDT Workstation ID: [id number] Narrative 04/07/2025 9:58 AM EDT MRI TIBIA [...] [place] 04/07/2025 9:58 AM EDT Workstation ID: [id number] us Sushil Dean Jr., MD [facility] MRI ORDERABLES Mary Beth l Result * Heparin Anti-Xa (04/07/2025 1:42 AM EDT) Heparin Anti-Xa (UFH) 0.38 0.30 - 0.70 IU/ml 04/07/2025 2:14 AM EDT [facility] Blood Venipuncture / Unknown 04/07/2025 1:42 AM EDT 04/07/2025 1:54 AM EDT Chelsie Velasquezprisca [facility] LAB BLOOD ORDERABLES Final R esult Performing Organization Address City/[facility] Co de Phone Number [facility]
[address] [place] [address], * Heparin Anti-Xa (04/06/2025 7:16 PM EDT) Pathologist [facility] Heparin Anti-Xa (UFH) 0.33 0.30 - 0.70 IU/ml 04/06/2025 7:50 PM EDT [facility] Blood Venipuncture / Unknown 04/06/2025 7:16 PM EDT 04/06/2025 7:35 PM EDT Cherri Beatty [facility] LAB BLOOD ORDERABLES Final Res ult Performing Organization Address [facility] Co de Phone Number [facility]
[address] [place] [address], * Potassium (04/06/2025 7:16 PM EDT) Pathologist [facility] Potassium 4.0 3.5 - 5.2 mmol/L 04/06/2025 7:53 PM EDT [facility] Blood Venipuncture / Unknown 04/06/2025 7:16 PM EDT 04/06/2025 7:35 PM EDT Jason Álvarez DO LAB BLOOD ORDERABLES Final Resul t [facility]
[address] [place] [address], * (ABNORMAL) Heparin Anti-Xa (04/06/2025 12:36 PM EDT) Heparin Anti-Xa (UFH) 0.24(L) 0.30 - 0.70 IU/ml 04/06/2025 1:23 PM EDT [facility] Blood Venipuncture / Unknown 04/06/2025 12:36 PM EDT 04/06/2025 1:07 PM EDT Una Perla PharmD LAB BLOOD ORDERABLES Final R esult [facility]
[address] [place] [address], * (ABNORMAL) Heparin Anti-Xa (04/06/2025 3:42 AM EDT) Heparin Anti-Xa (UFH) 0.25(L) 0.30 - 0.70 IU/ml 04/06/2025 5:30 AM EDT [facility] Blood Venipuncture / Unknown 04/06/2025 3:42 AM EDT 04/06/2025 4:59 AM EDT Chelsie Turpin [facility] LAB BLOOD ORDERABLES Final R esult [facility]
[address] [place] [address], * (ABNORMAL) Basic Metabolic Panel (04/06/2025 3:42 AM EDT) Glucose 94 65 - 99 mg/dL 04/06/2025 5:59 AM EDT [facility] BUN 12.8 6.0 - 20.0 mg/dL 04/06/2025 5:59 AM EDT [facility] Creatinine 0.80 0.76 - 1.27 mg/dL 04/06/2025 5:59 AM EDT [facility] Sodium 138 136 - 145 mmol/L 04/06/2025 5:59 AM EDT [facility] Potassium 3.6 3.5 - 5.2 mmol/L 04/06/2025 5:59 AM EDT [facility] Chloride 103 98 - 107 mmol/L 04/06/2025 5:59 AM EDT [facility] CO2 24.2 22.0 - 29.0 mmol/L 04/06/2025 5:59 AM EDT [facility] Calcium 8.0(L) 8.6 - 10.5 mg/dL 04/06/2025 5:59 AM EDT [facility] BUN/Creatinine Ratio 16.0 7.0 - 25.0 04/06/2025 5:59 AM EDT [facility] Anion Gap 10.8 5.0 - 15.0 mmol/L 04/06/2025 5:59 AM T [facility] eGFR 111.9 >60.0 mL/min/1.7 3 04/06/2025 5:59 AM T [facility] Blood Venipuncture / Unknown 04/06/2025 3:42 AM EDT 04/06/2025 5:20 AM EDT [facility] - 04/06/2025 5:59 AM EDT [...] BLOOD ORDERABLES Final Resul t [facility]
[address] [place] [address], * (ABNORMAL) CBC Auto Differential (04/06/2025 3:41 AM EDT) WBC 10.86(H) 3.40 - 10.80 10*3/mm3 04/06/2025 5:04 AM EDT [facility] RBC 5.08 4.14 - 5.80 10*6/mm3 04/06/2025 5:04 AM EDT [facility] Hemoglobin 13.9 13.0 - 17.7 g/dL 04/06/2025 5:04 AM EDT [facility] Hematocrit 43.7 37.5 - 51.0 % 04/06/2025 5:04 AM EDT [facility] MCV 86.0 79.0 - 97.0 fL 04/06/2025 5:04 AM EDT [facility] MCH 27.4 26.6 - 33.0 pg 04/06/2025 5:04 AM EDT [facility] MCHC 31.8 31.5 - 35.7 g/dL 04/06/2025 5:04 AM EDT [facility] RDW 12.8 12.3 - 15.4 % 04/06/2025 5:04 AM EDT [facility] RDW-SD 40.0 37.0 - 54.0 fl 04/06/2025 5:04 AM EDT [facility] MPV 11.7 6.0 - 12.0 fL 04/06/2025 5:04 AM EDT [facility] Platelets 115(L) 140 - 450 10*3/mm3 04/06/2025 5:04 AM EDT [facility] Neutrophil % 65.3 42.7 - 76.0 % 04/06/2025 5:04 AM EDT [facility] Lymphocyte % 20.5 19.6 - 45.3 % 04/06/2025 5:04 AM EDT [facility] Monocyte % 11.8 5.0 - 12.0 % 04/06/2025 5:04 AM EDT [facility] Eosinophil % 1.8 0.3 - 6.2 % 04/06/2025 5:04 AM EDT [facility] Basophil % 0.3 0.0 - 1.5 % 04/06/2025 5:04 AM EDT [facility] Immature Grans % 0.3 0.0 - 0.5 % 04/06/2025 5:04 AM EDT [facility] Neutrophils, Absolute 7.09(H) 1.70 - 7.00 10*3/mm3 04/06/2025 5:04 AM EDT [facility] Lymphocytes, Absolute 2.23 0.70 - 3.10 10*3/mm3 04/06/2025 5:04 AM EDT [facility] Monocytes, Absolute 1.28(H) 0.10 - 0.90 10*3/mm3 04/06/2025 5:04 AM EDT [facility] Eosinophils, Absolute 0.20 0.00 - 0.40 10*3/mm3 04/06/2025 5:04 AM EDT [facility] Basophils, Absolute 0.03 0.00 - 0.20 10*3/mm3 04/06/2025 5:04 AM EDT [facility] Immature Grans, Absolute 0.03 0.00 - 0.05 10*3/mm3 04/06/2025 5:04 AM EDT [facility] nRBC 0.0 0.0 - 0.2 /100 WBC 04/06/2025 5:04 AM EDT [facility] Blood Venipuncture / Unknown 04/06/2025 3:41 AM EDT 04/06/2025 4:58 AM EDT us Jsaon Álvarez DO LAB BLOOD ORDERABLES Final Resul t [facility]
[address] [place] [address], * Heparin Anti-Xa (04/05/2025 8:43 PM EDT) Heparin Anti-Xa (UFH) 0.38 0.30 - 0.70 IU/ml 04/05/2025 9:09 PM EDT [facility] Blood Venipuncture / Unknown 04/05/2025 8:43 PM EDT 04/05/2025 8:55 PM EDT Cherri Beatty [facility] LAB BLOOD ORDERABLES Final Res ult [facility]
[address] [place] [address], * CK (04/05/2025 12:15 PM EDT) Creatine Kinase 140 20 - 200 U/L 04/05/2025 1:31 PM EDT [facility] Blood Venipuncture / Unknown 04/05/2025 12:15 PM EDT 04/05/2025 1:03 PM EDT Carlton Mead MD LAB BLOOD ORDERABLES Final R esult Performing Organization Address City/[facility]/ZIP Co de Phone Number [facility]
[address] [place] [address], * (ABNORMAL) Heparin Anti-Xa (04/05/2025 12:15 PM EDT) Heparin Anti-Xa (UFH) 0.17(L) 0.30 - 0.70 IU/ml 04/05/2025 1:21 PM EDT [facility] Blood Venipuncture / Unknown 04/05/2025 12:15 PM EDT 04/05/2025 1:04 PM EDT Una LundbergD LAB BLOOD ORDERABLES Final R esult Performing Organization Address [facility] Co de Phone Number [facility]
[address] [place] [address], * (ABNORMAL) aPTT (04/05/2025 3:54 AM EDT) [facility] PTT 35.3(L) 60.0 - 90.0 seconds 04/05/2025 4:31 AM EDT [facility] Blood Venipuncture / Unknown 04/05/2025 3:54 AM EDT 04/05/2025 4:15 AM EDT Narrative [facility] - 04/05/2025 4:31 AM EDT PTT = The equivalent PTT values for the therapeutic range of heparin levels at 0.3 to 0.5 U/ml are 60 to 70 seconds. Unaconrado Perla KaptureD LAB BLOOD ORDERABLES Final R esult Performing Organization Address [facility] Co de Phone Number [facility]
[address] [place] [address], * Heparin Anti-Xa (04/05/2025 3:54 AM EDT) [facility] Heparin Anti-Xa (UFH) 0.30 0.30 - 0.70 IU/ml 04/05/2025 4:32 AM EDT [facility] Blood Venipuncture / Unknown 04/05/2025 3:54 AM EDT 04/05/2025 4:15 AM EDT Unacande Perla PharmD LAB BLOOD ORDERABLES Final R esult Performing Organization Address [facility] Co de Phone Number [facility]
[address] [place] [address], [place] [phone] * (ABNORMAL) CBC Auto Differential (04/05/2025 3:54 AM EDT) [facility] WBC 11.18(H) 3.40 - 10.80 10*3/mm3 04/05/2025 4:20 AM [facility] RBC 5.00 4.14 - 5.80 10*6/mm3 04/05/2025 4:20 AM EDT [facility] Hemoglobin 13.9 13.0 - 17.7 g/dL 04/05/2025 4:20 AM EDT [facility] Hematocrit 42.4 37.5 - 51.0 % 04/05/2025 4:20 AM EDT [facility] MCV 84.8 79.0 - 97.0 fL 04/05/2025 4:20 AM [facility] MCH 27.8 26.6 - 33.0 pg 04/05/2025 4:20 AM [facility] MCHC 32.8 31.5 - 35.7 g/dL 04/05/2025 4:20 AM [facility] RDW 12.9 12.3 - 15.4 % 04/05/2025 4:20 AM [facility] RDW-SD 39.7 37.0 - 54.0 fl 04/05/2025 4:20 AM [facility] MPV 10.2 6.0 - 12.0 fL 04/05/2025 4:20 AM [facility] Platelets 160 140 - 450 10*3/mm3 04/05/2025 4:20 AM EDT [facility] Neutrophil % 73.5 42.7 - 76.0 % 04/05/2025 4:20 AM [facility] Lymphocyte % 14.0(L) 19.6 - 45.3 % 04/05/2025 4:20 AM EDT [facility] Monocyte % 11.0 5.0 - 12.0 % 04/05/2025 4:20 AM [facility] Eosinophil % 0.8 0.3 - 6.2 % 04/05/2025 4:20 AM [facility] Basophil % 0.3 0.0 - 1.5 % 04/05/2025 4:20 AM EDT [facility] Immature Grans % 0.4 0.0 - 0.5 % 04/05/2025 4:20 AM EDT [facility] Neutrophils, Absolute 8.23(H) 1.70 - 7.00 10*3/mm3 04/05/2025 4:20 AM EDT [facility] Lymphocytes, Absolute 1.56 0.70 - 3.10 10*3/mm3 04/05/2025 4:20 AM EDT [facility] Monocytes, Absolute 1.23(H) 0.10 - 0.90 10*3/mm3 04/05/2025 4:20 AM EDT [facility] Eosinophils, Absolute 0.09 0.00 - 0.40 10*3/mm3 04/05/2025 4:20 AM EDT [facility] Basophils, Absolute 0.03 0.00 - 0.20 10*3/mm3 04/05/2025 4:20 AM EDT [facility] Immature Grans, Absolute 0.04 0.00 - 0.05 10*3/mm3 04/05/2025 4:20 AM EDT [facility] nRBC 0.0 0.0 - 0.2 /100 WBC 04/05/2025 4:20 AM T [facility] Blood Venipuncture / Unknown 04/05/2025 3:54 AM EDT 04/05/2025 4:16 AM EDT Una Perla PharmD LAB BLOOD ORDERABLES Final R esult [facility]
[address] [place] [address], * (ABNORMAL) Basic Metabolic Panel (04/05/2025 3:54 AM EDT) Glucose 152(H) 65 - 99 mg/dL 04/05/2025 4:40 AM EDT [facility] BUN 17.3 6.0 - 20.0 mg/dL 04/05/2025 4:40 AM [facility] Creatinine 0.92 0.76 - 1.27 mg/dL 04/05/2025 4:40 AM T [facility] Sodium 136 136 - 145 mmol/L 04/05/2025 4:40 AM [facility] Potassium 3.9 3.5 - 5.2 mmol/L 04/05/2025 4:40 AM EDT [facility] Chloride 103 98 - 107 mmol/L 04/05/2025 4:40 AM T [facility] CO2 24.0 22.0 - 29.0 mmol/L 04/05/2025 4:40 AM [facility] Calcium 7.8(L) 8.6 - 10.5 mg/dL 04/05/2025 4:40 AM [facility] BUN/Creatinine Ratio 18.8 7.0 - 25.0 04/05/2025 4:40 AM [facility] Anion Gap 9.0 5.0 - 15.0 mmol/L 04/05/2025 4:40 AM [facility] eGFR 105.2 >60.0 mL/min/1.7 3 04/05/2025 4:40 AM [facility] Blood Venipuncture / Unknown 04/05/2025 3:54 AM EDT 04/05/2025 4:15 AM T [facility] - 04/05/2025 4:40 AM EDT [...] ORDERABLES Final Re sult Performing Organization Address City/[facility]/ZIP Co de Phone Number [facility]
[address] [place] [address], * (ABNORMAL) aPTT (04/05/2025 12:18 AM EDT) PTT 33.6(L) 60.0 - 90.0 seconds 04/05/2025 12:53 AM EDT [facility] Blood Venipuncture / Unknown 04/05/2025 12:18 AM EDT 04/05/2025 12:37 AM EDT Narrative [facility] - 04/05/2025 12:53 AM EDT PTT = The equivalent PTT values for the therapeutic range of heparin levels at 0.3 to 0.5 U/ml are 60 to 70 seconds. Una Perla PharmD LAB BLOOD ORDERABLES Final R esult Performing Organization Address [facility]/ZIP Co de Phone Number [facility]
[address] [place] [address], * (ABNORMAL) Protime-INR (04/05/2025 12:18 AM EDT) Protime 15.9(H) 12.2 - 15.3 Seconds 04/05/2025 12:53 AM EDT [facility] INR 1.19(H) 0.89 - 1.12 04/05/2025 12:53 AM EDT [facility] Blood Venipuncture / Unknown 04/05/2025 12:18 AM EDT 04/05/2025 12:37 AM EDT Una Perla PharmD LAB BLOOD ORDERABLES Final R esult Performing Organization Address City/[facility]/ZIP Co de Phone Number [facility]
[address] [place] [address], [place] [phone] * Heparin Anti-Xa (04/05/2025 12:18 AM EDT) Heparin Anti-Xa (UFH) 0.39 0.30 - 0.70 IU/ml 04/05/2025 12:54 AM EDT [facility] Blood Venipuncture / Unknown 04/05/2025 12:18 AM EDT 04/05/2025 12:37 AM EDT Una Perla PharmD LAB BLOOD ORDERABLES Final R esult [facility]
[address] [place] [address], * MRI Tibia Fibula Right With & [...] MD 04/04/2025 11:00 PM EDT Workstation ID: [id number] Narrative 04/04/2025 11:00 PM EDT MRI TIBIA [...] MD 04/04/2025 11:00 PM EDT Workstation ID: [id number] us Leonora Shepherd MD IMG MRI ORDERABLES Final Resu lt * POC Creatinine (04/04/2025 2:49 PM EDT) Pathologist [facility] Creatinine 1.10 0.60 - 1.30 mg/dL 04/07/2025 7:14 PM EDT [facility] Comment:Serial Number: [id number] Venous Blood 04/04/2025 2:49 PM EDT 04/07/2025 7:14 PM EDT Jason Álvarez DO POINT OF CARE TEST ORDERABLES Fi nal Result [facility] [place] [address], * (ABNORMAL) CBC Auto Differential (04/04/2025 2:47 PM EDT) [facility] WBC 12.72(H) 3.40 - 10.80 10*3/mm3 04/04/2025 2:56 PM EDT [facility] RBC 5.64 4.14 - 5.80 10*6/mm3 04/04/2025 2:56 PM EDT [facility] Hemoglobin 15.3 13.0 - 17.7 g/dL 04/04/2025 2:56 PM EDT [facility] Hematocrit 47.9 37.5 - 51.0 % 04/04/2025 2:56 PM EDT [facility] MCV 84.9 79.0 - 97.0 fL 04/04/2025 2:56 PM EDT [facility] MCH 27.1 26.6 - 33.0 pg 04/04/2025 2:56 PM EDT [facility] MCHC 31.9 31.5 - 35.7 g/dL 04/04/2025 2:56 PM EDT [facility] RDW 13.1 12.3 - 15.4 % 04/04/2025 2:56 PM EDT [facility] RDW-SD 40.3 37.0 - 54.0 fl 04/04/2025 2:56 PM EDT [facility] MPV 9.4 6.0 - 12.0 fL 04/04/2025 2:56 PM EDT [facility] Platelets 232 140 - 450 10*3/mm3 04/04/2025 2:56 PM EDT [facility] Neutrophil % 74.9 42.7 - 76.0 % 04/04/2025 2:56 PM EDT [facility] Lymphocyte % 13.1(L) 19.6 - 45.3 % 04/04/2025 2:56 PM EDT [facility] Monocyte % 11.2 5.0 - 12.0 % 04/04/2025 2:56 PM EDT [facility] Eosinophil % 0.4 0.3 - 6.2 % 04/04/2025 2:56 PM EDT [facility] Basophil % 0.2 0.0 - 1.5 % 04/04/2025 2:56 PM EDT [facility] Immature Grans % 0.2 0.0 - 0.5 % 04/04/2025 2:56 PM EDT [facility] Neutrophils, Absolute 9.52(H) 1.70 - 7.00 10*3/mm3 04/04/2025 2:56 PM EDT [facility] Lymphocytes, Absolute 1.66 0.70 - 3.10 10*3/mm3 04/04/2025 2:56 PM EDT [facility] Monocytes, Absolute 1.43(H) 0.10 - 0.90 10*3/mm3 04/04/2025 2:56 PM EDT [facility] Eosinophils, Absolute 0.05 0.00 - 0.40 10*3/mm3 04/04/2025 2:56 PM EDT [facility] Basophils, Absolute 0.03 0.00 - 0.20 10*3/mm3 04/04/2025 2:56 PM EDT [facility] Immature Grans, Absolute 0.03 0.00 - 0.05 10*3/mm3 04/04/2025 2:56 PM EDT [facility] nRBC 0.0 0.0 - 0.2 /100 WBC 04/04/2025 2:56 PM EDT [facility] Blood Venipuncture / Unknown 04/04/2025 2:47 PM EDT 04/04/2025 2:52 PM EDT Mario Crowley LAB BLOOD ORDERABLES Fin al Result [facility]
[address] [place] [address], * (ABNORMAL) C-reactive Protein (04/04/2025 2:47 PM EDT) C-Reactive Protein 8.57(H) 0.00 - 0.50 mg/dL 04/04/2025 3:26 PM EDT [facility] Blood Venipuncture / Unknown 04/04/2025 2:47 PM EDT 04/04/2025 2:52 PM EDT Mario Crowley LAB BLOOD ORDERABLES Fin al Result [facility]
[address] [place] [address], * (ABNORMAL) Sedimentation Rate (04/04/2025 2:47 PM EDT) Sed Rate 51(H) 0 - 15 mm/hr 04/04/2025 3:06 PM EDT [facility] Blood Venipuncture / Unknown 04/04/2025 2:47 PM EDT 04/04/2025 2:52 PM EDT Mario Crowley LAB BLOOD ORDERABLES Fin al Result [facility]
[address] [place] [address], * Comprehensive Metabolic Panel (04/04/2025 2:47 PM EDT) Glucose 90 65 - 99 mg/dL 04/04/2025 3:26 PM EDT [facility] BUN 18.3 6.0 - 20.0 mg/dL 04/04/2025 3:26 PM EDT [facility] Creatinine 0.94 0.76 - 1.27 mg/dL 04/04/2025 3:26 PM EDT [facility] Sodium 136 136 - 145 mmol/L 04/04/2025 3:26 PM EDT [facility] Potassium 3.8 3.5 - 5.2 mmol/L 04/04/2025 3:26 PM EDT [facility] Chloride 100 98 - 107 mmol/L 04/04/2025 3:26 PM EDT [facility] CO2 25.3 22.0 - 29.0 mmol/L 04/04/2025 3:26 PM EDT [facility] Calcium 8.6 8.6 - 10.5 mg/dL 04/04/2025 3:26 PM EDT [facility] Total Protein 7.3 6.0 - 8.5 g/dL 04/04/2025 3:26 PM EDT [facility] Albumin 4.1 3.5 - 5.2 g/dL 04/04/2025 3:26 PM EDT [facility] ALT (SGPT) 26 1 - 41 U/L 04/04/2025 3:26 PM EDT [facility] AST (SGOT) 25 1 - 40 U/L 04/04/2025 3:26 PM EDT [facility] Alkaline Phosphatase 106 39 - 117 U/L 04/04/2025 3:26 PM EDT [facility] Total Bilirubin 1.0 0.0 - 1.2 mg/dL 04/04/2025 3:26 PM EDT [facility] Globulin 3.2 gm/dL 04/04/2025 3:26 PM EDT [facility] Comment:Calculated Result A/G Ratio 1.3 g/dL 04/04/2025 3:26 PM EDT [facility] BUN/Creatinine Ratio 19.5 7.0 - 25.0 04/04/2025 3:26 PM EDT [facility] Anion Gap 10.7 5.0 - 15.0 mmol/L 04/04/2025 3:26 PM EDT [facility] eGFR 102.5 >60.0 mL/min/1.7 3 04/04/2025 3:26 PM EDT [facility] Blood Venipuncture / Unknown 04/04/2025 2:47 PM EDT 04/04/2025 2:52 PM EDT Narrative [facility] - 04/04/2025 3:26 PM EDT GFR [...] BLOOD ORDERABLES Fin al Result [facility]
[address] [place] [address], documented in this encounter Visit Diagnoses Diagnosis [...] BPA Driven Protocol [facility] Electrolyte Replacement Protocol Algorithm to View [...] BPA Driven Protocol [facility] Electrolyte Replacement Protocol Algorithm to View [...] BPA Driven Protocol Open [facility] Electrolyte Replacement Protocol Algorithm to View [...] disposal. 0831 (Given - Provider: Amber Salazar, FIRE ENGINEER)1943 (Given - Provider: Anahy Marcelino, KELL)2129 (Canceled Entry - Provider: Anahy Marcelino RRT - Comment: previously given) 0837 (Given - Provider: Amber Salazar FIRE ENGINEER)2006 (Given - Provider: Loree Reese, KELL)2129 (Canceled [...] (New Bag - Provider: Shirley Hart, LU) 1002 (New Bag - Provider: Marguerite Wakefield [...] medication prescribed for a lower pain scale. ([facility]) If given for pain, use the following [...] 1001 (Given - Provider: Marguerite Wakefield, RN) sertraline [...] Continuous Medication Order 04/09/2025 04/10/2025 04/11/2025 heparin 89582 units/250 mL (100 units/mL) in 0.45 % NaCl infusion (CANCELED) 18 Units/kg/hr 134 kg (24.12 mL/hr, rounded to 24.1 mL/hr), Intravenous, Titrated, Starting on 04/05/25 at 0045, Pharmacy dosing - VTE (PE/DVT) - Boluses (No initial bolus), Indications: DVT/PE (active thrombosis) 0614 (New Bag - Provider: Bob Rosenberg, LU)0712 (Handoff - Provider: Bob Rosenberg, RN)1633 (New Bag - Provider: Shirley Hart, LU) 0313 (New Bag - Provider: Alberto Dillon RN)1112 (Stopped - Provider: Shirley Hart, RN - Comment: [Order ends at this [...] BPA Driven Protocol [facility] Electrolyte Replacement Protocol Algorithm to View [...] Dillon, LU)1414 (Given - Provider: Shirley Hart, RN)2123 (Given - Provider: Alberto Dillon, RN) 1003 (Given - Provider: Marguerite Wakefield, RN) Magnesium Standard Dose Replacement - Follow Nurse / BPA Driven Protocol Open Order [facility] Electrolyte Replacement Protocol Algorithm to View [...] BPA Driven Protocol Open Order [facility] Electrolyte Replacement Protocol Algorithm to View [...] BPA Driven Protocol Open Order [facility] Electrolyte Replacement Protocol Algorithm to View [...] documented as of this encounter 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
--- OUTSIDE RECORDS SUMMARY | 2025-04-07 20:36 | XMS_ITS | Encounter Summary ---
Author Organization [facility] Address [address] [place] [address] Care Team Providers Care Ems Director Name Role Phone Provider, No Known Primary Care Provider Unavail able Reason for Visit * Auth/Cert Specialty Diagnoses / Procedures Referred By Bulmaro muniz Referred To Contact Diagnoses Right BKA infection Referral ID Status Reason Start Date Expiration Date Visits Re quested Visits Authorized [id number] 1 1 Encounter Details Date Type Department Care Team (Late st Contact Info) Description 04/07/2025 8:36 PM EDT Anesthesia Event [facility] OR [address] [place] [address] Luci Alonso DO [address] [place] [address] Anesthesia Record Procedure Summary Procedure Name Responsible [...] Patient Tolerance: Tolerated well 04/05/25 0025 by Mray Christine, RN NPWT (Negative Pressure Wound Therapy) [...] drink = 0.6 oz pur e alcohol) [facility] Utilities Answer Date Recorded In the past 12 months has [employer], gas, oil, or water [employer] threatened to shut off services in your [...] or training? Not on file Preferred Language Martiniquais 04/07/2025 Sex and Gender Information Value Date [...] PACU on O2NC, breathing comfortably. Report to EXHIBIT DISPLAY REPRESENTATIVE at bedside. VSS. * Anesthesia Procedure Notes [...] Musculoskeletal Abdominal Substance History - negative use JAVA PORTAL DEVELOPER Other ROS/Med Hx Other: Eliquis 04/04/25 Hgb [...] been obtained with: patient. Plan discussed with REAGENT TENDER. CODE STATUS: Code Status (Patient has [...] documented as of this encounter Care Teams Ems Director Relationship Specialty Start Date End Date Provider, No Known [place] [address] PCP - General 05/09/23 documented as of this encounter
--- OUTSIDE RECORDS SUMMARY | 2025-04-08 14:45 | XMS_ITS | Encounter Summary ---
[facility] Address [address] [place] [address] Care Team Providers Care Patient Financial Representative Name Role Phone Provider, No Known Primary Care Provider Unavail able Reason for Visit * Reason Comments Leg Swelling * Auth/Cert Specialty Diagnoses / Procedures Referred By Contac t Referred To Contact Diagnoses Right BKA infection Referral ID Status Reason Start Date Expiration Date Visits Re quested Visits Authorized [id number] 1 1 Encounter Details Date Type Department Care Team (Late st Contact Info) Description 04/08/2025 2:45 PM EDT - 04/08/2025 4:04 PM EDT Surgery [facility] OR [address] [place] [address] Sushil Dean Jr., MD [address] [place] [address] [address] [id number] LEG DEBRIDEMENT AND IRRIGATION Social History Tobacco Use Types Packs/Day Years Used Date Smoking Tobacco: Never Smokeless Tobacco: Never Tobacco Cessation:Counseling Given: Not Answered Alcohol Use Standard Drinks/Week Comments Not Currently 0 (1 standard drink = 0.6 oz pur e alcohol) [facility] Utilities Answer Date Recorded In the past 12 months has [employer] electric, gas, oil, or water company threatened [...] or training? Not on file Preferred Language Uruguayan 04/07/2025 Sex and Gender Information Value Date [...] 2:25 PM EDT Cherri Grimm RN * [place] Suicide Severity Rating Scale (Screener/Recent Self-Report) Question [...] Date/Time Wound Culture - Swab, Leg, Right [[id number]] (Abnormal) (Susceptibility) Collected: 04/07/252106 Lab Status: Final [...] Units Date/Time FL C Arm During Surgery [[id number]] Resulted: 04/07/252137 Updated: 04/07/252137 Narrative: This procedure was auto-finalized with no dictation required. MRI Tibia Fibula Right With & Without Contrast [[id number]] Collected: 04/07/25 0938 Updated: 04/07/25 1001 Narrative: [...] Buenrostro 04/07/2025 9:58 AM EDT Workstation ID: [id number] MRI Tibia Fibula Right With & Without Contrast [[id number]] Collected: 04/04/252256 Updated: 04/04/252302 Narrative: MRI TIBIA [...] represent a small area of phlegmonous change ([id number] image 10) measuring approximately 1.6 cm which [...] MD 04/04/2025 11:00 PM EDT Workstation ID: [id number] Pending Labs Order Current Status Fungus Culture [...] Male) Date of 1980 Social Security Number [id number] [place] [address] [place] [id number] Episcopalian Unknown Marital Status Unknown Admission Date 04/04/2025 Admission Type Emergency Admitting Provider Jadyn Richardson DO Attending Provider Jadyn Richardson DO Department, Room/Bed [facility] 5G, S565/1 Discharge Date Discharge [...] Group [employer] MEDICAID ID HU[employer]NA MEDICAID ID [id number] Payor Plan Address Payor Plan Phone Number Payor Plan Fax Number Effective Dates [employer] [address] [address] 08/10/2023 - None Entered Formerly [facility] [address] Subscriber Name Subscriber Date Member ID WON DENNIS 1980 [id number] Emergency Contacts Glycerin Supervisor (Rel.) Home Phone Work Phone Mobile Phone Avril Dennis (Spouse) -- -- [phone] Robert Hackett (Relative) -- -- [phone] [facility] 5G [address] [facility] [address] Patient: ROOM: [facility] Won Dennis [address] [place] [id number] : 1980 SSN: [id number] Sex: M PCP: Provider, No Known Emergency Contact Information Name Relation Home Work Mobile Avril Dennis Spouse [phone] Other Contacts Name Relation Home Work Mobile Robert Hackett Relative [phone] INSURANCE PAYOR [employer]AN [employer] # SUBSCRIBER ID Primary: Secondary: MEDICARE [place] [id number] Admitting Diagnosis: Right BKA infection [T87.43] Order Date: Apr 09, 2025 Case Management Perfume Maker Consult (Order ID: [id number]) Diagnosis: Priority: Routine Expected Date: Expiration Date: [...] INFECTIOUS DISEASE Progress Note Won Dennis 1980 [id number] Date of Consult: 04/10/2025 Admission Date: 04/04/2025 [...] Jr., MD, 20 mg at 04/09/25906 heparin 48298 units/250 mL (100 units/mL) in 0.45 % [...] Units Date/Time FL C Arm During Surgery [[id number]] Resulted: 04/07/252137 Updated: 04/07/252137 Narrative: This procedure was auto-finalized with no dictation required. MRI Tibia Fibula Right With & Without Contrast [[id number]] Collected: 04/07/2538 Updated: 04/07/25 1001 Narrative: MRI [...] Buenrostro 04/07/2025 9:58 AM EDT Workstation ID: [id number] Impression: Recurrent Right BKA stump abscess/cellulitis- this [...] to be forward to to Dr. Rubens Torers This visit included the following complex service [...] Date/Time Wound Culture - Swab, Leg, Right [[id number]] (Abnormal) (Susceptibility) Collected: 04/07/252106 Lab Status: Final [...] Row Name 04/06/25 1143 Sit-Stand Transfer Sit-Stand [place] (Transfers) modified independence - Comment, (Sit-Stand Transfer) Pt stood from recliner. Not holding onto walker, pt able to pull his pants up while balancing on his one leg. -LM Row Name 04/06/25 1143 Gait/Stairs (Locomotion) [place] Level (Gait) modified independence - Distance in [...] Motion bilateral lower extremity ROM WFL -LM [facility] Name 04/06/25 1145 Strength Comprehensive (MMT) General Manual Muscle Testing (MMT) Assessment no strength deficits identified BLEs -LM [facility] Name 04/06/25 1145 Balance Balance Assessment [...] home at d/c. PT signing off. -LM [facility] Name 04/06/25 1146 Therapy Assessment/Plan (PT) Criteria for Skilled Interventions Met (PT) no;no problems identified which require skilled intervention -LM Therapy Frequency (PT) evaluation only -LM Predicted Duration of Therapy Intervention (PT) Eval Only -LM [facility] Name 04/06/25 1146 Vital Signs Pretreatment Heart Rate (beats/min) 86 -LM Posttreatment Heart Rate (beats/min) 96 -LM Pre SpO2 (%) 95 -LM O2 Delivery Pre Treatment room air -LM Post SpO2 (%) 96 -LM O2 Delivery Post Treatment room air -LM Pre Patient Position Sitting -LM Post Patient Position Sitting -LM [facility] Name 04/06/25 1146 Positioning and Restraints [...] Nurse Physical Therapy Education Title: PT OT CRUDE OIL TREATER Therapies (Done) Topic: Physical Therapy (Done) Point: [...] Description Service Date Service Provider Modifiers Qty [id number] PT EVAL LOW COMPLEXITY 3 04/06/2025 Susan [...] Date/Time Wound Culture - Swab, Leg, Right [[id number]] (Abnormal) (Susceptibility) Collected: 04/07/252106 Lab Status: Final [...] INFECTIOUS DISEASE Progress Note Won Dennis 1980 [id number] Date of Consult: 04/10/2025 Admission Date: 04/04/2025 [...] IRRIGATION; Surgeon: Sushil Dean Jr., MD; Location: [facility] OR; Service: Orthopedics; Laterality: Right; PLACEMENT OF [...] Jr., MD, 20 mg at 04/09/25906 heparin 09480 units/250 mL (100 units/mL) in 0.45 % [...] Units Date/Time FL C Arm During Surgery [[id number]] Resulted: 04/07/252137 Updated: 04/07/252137 Narrative: This procedure was auto-finalized with no dictation required. MRI Tibia Fibula Right With & Without Contrast [[id number]] Collected: 04/07/25 0938 Updated: 04/07/25 1001 Narrative: [...] Chitra 04/07/2025 9:58 AM EDT Workstation ID: [id number] Impression: Recurrent Right BKA stump abscess/cellulitis- this [...] MD 04/10/2025 07:38 EDT * Larisa Hamilton, [facility] - 04/10/2025 7:17 AM EDT [...] 0500 0.30 11 -- -- 11 1200 [facility] 04/05 1215 0.17 11 1999 +3 [...] Date/Time Wound Culture - Swab, Leg, Right [[id number]] (Abnormal) Collected: 04/07/252106 Lab Status: Preliminary result [...] Jason Álvarez DO 04/09/25 * Larisa Hamilton, [facility] - 04/09/2025 11:36 AM EDT [...] 0500 0.30 11 -- -- 11 1200 [facility] 04/05 1215 0.17 11 1999 +3 [...] INFECTIOUS DISEASE Progress Note Won Dennis 1980 [id number] Date of Consult: 04/09/2025 Admission Date: 04/04/2025 [...] [facility]; Service: Orthopedics; Laterality: Right; History reviewed. [...] MD, 20 mg at 04/08/25 0800 heparin 57166 units/250 mL (100 units/mL) in 0.45 % NaCl infusion, 18 Units/kg/hr, Intravenous, Titrated, Una ePrla, PharmD, Last Rate: 24.1 mL/hr at 04/09/25 0614, 18 Units/kg/hr at 04/09/25 0614 hydroCHLOROthiazide tablet 12.5 mg, 12.5 mg, Oral, Daily, Sushil Daen Jr., MD, 12.5 mg at 04/08/25 0801 [...] Units Date/Time FL C Arm During Surgery [[id number]] Resulted: 04/07/252137 Updated: 04/07/252137 Narrative: This procedure was auto-finalized with no dictation required. MRI Tibia Fibula Right With & Without Contrast [[id number]] Collected: 04/07/25937 Updated: 04/07/25 1001 Narrative: MRI [...] Chitra 04/07/2025 9:58 AM EDT Workstation ID: [id number] Impression: Recurrent Right BKA stump abscess/cellulitis- this [...] Buenrostro 04/07/2025 9:58 AM EDT Workstation ID: [id number] I have personally reviewed the therapy plans: [...] Level Of Support Discussed With: Patient Jasno DO Preeti 04/08/25 * Larisa Hamilton, [facility] - 04/08/2025 11:48 AM EDT [...] INFECTIOUS DISEASE Progress Note Won Dennis 1980 [id number] Date of Consult: 04/08/2025 Admission Date: 04/04/2025 [...] Jr., MD, 20 mg at 04/07/25950 heparin 32386 units/250 mL (100 units/mL) in 0.45 % [...] Units Date/Time FL C Arm During Surgery [[id number]] Resulted: 04/07/252137 Updated: 04/07/252137 Narrative: This procedure was auto-finalized with no dictation required. 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 (Treated by ID in [place] Dr. Harris). Dr. Torres treated him with [...] Buenrostro 04/07/2025 9:58 AM EDT Workstation ID: [id number] I have personally reviewed the therapy plans: [...] 18 Units/kg/hr, Last Rate: 18 Units/kg/hr (04/07/25 6128) Pharmacy to Dose Heparin, PRN Meds:. acetaminophen [...] Jason Álvarez DO 04/07/25 * Larisa Hamilton [facility] - 04/07/2025 11:56 AM EDT [...] INFECTIOUS DISEASE Progress Note Won Dennis 1980 [id number] Date of Consult: 04/07/2025 Admission Date: 04/04/2025 [...] Application, 1 Application, Topical, Q12H, Ayah Valentin, ADMITTING REPRESENTATIVE, 1 Application at 04/06/252101 DAPTOmycin (CUBICIN) 800 [...] MD, 20 mg at 04/06/25 0900 heparin 94437 units/250 mL (100 units/mL) in 0.45 % NaCl infusion, 18 Units/kg/hr, Intravenous, Titrated, Cherri Beatty, [facility], Last Rate: 24.1 mL/hr at [...] With & Without Contrast - In process [[id number]] Resulted: 04/07/25828 Updated: 04/07/25828 This result has not been signed. Information might be incomplete. 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 (Treated by ID in [place] Dr. Harris). Dr. Torres treated him with [...] mg Daily 04/05/2025 -- Route: Oral heparin 87435 units/250 mL (100 units/mL) in 0.45 % [...] MD 04/07/25 06:07 EDT * Cherri Beatty [facility] - 04/06/2025 1:47 PM EDT [...] 0500 0.30 11 -- -- 11 1200 [facility] 04/05 1215 0.17 11 1999 +3 14 2100 DW RN Pump checked 04/05 2043 0.38 14 -- -- 14 0300 [facility] 04/06 0530 0.25 14 -- +2 16 1200 [facility] Mary 04/06 1236 0.24 16 -- +2 18 1999 LU Beatty [facility] 04/06/2025 13:48 EDT * Jason [...] MD 04/04/2025 11:00 PM EDT Workstation ID: [id number] I have personally reviewed the therapy plans: [...] mg Daily 04/05/2025 -- Route: Oral heparin 98577 units/250 mL (100 units/mL) in 0.45 % [...] INFECTIOUS DISEASE follow up. 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 (Treated by ID in [place] Dr. Harris). Dr. Torres treated him with [...] MD 04/06/2025 16:00 EDT * Cherri Beatty, [facility] - 04/05/2025 3:01 PM EDT [...] MD 04/04/2025 11:00 PM EDT Workstation ID: [id number] I have personally reviewed the therapy plans: [...] MD 04/04/2025 11:00 PM EDT Workstation ID: [id number] Assessment & Plan Assessment & Plan Won [...] 4FR PICC placed by Rhoda Bonner RN [facility], tip verified by 3CG see LDA. * Sushil Dean Jr., MD - 04/05/2025 8:07 AM EDTAssociated Order(s): IP CONSULT TO ORTHOPEDIC SURGERY [facility], [facility] [address] [address] Orthopedic Consult Patient: Won Dennis Date of [...] was evaluated in the emergency department in [place], was discharged with instructions for follow-up. He [...] mouth Daily. 04/03/2025 Morning Lactobacillus-Inulin ([facility] Dtime) capsule Take 200 mg by mouth Daily. [...] MD 04/04/2025 11:00 PM EDT Workstation ID: [id number] Assessment: Right BKA infection 44-year-old male with [...] DISEASE CONSULT/INITIAL HOSPITAL VISIT Won Dennis 1980 [id number] Date of Consult: 04/05/2025 Admission Date: 04/04/2025 [...] MD, 20 mg at 04/05/25 0916 heparin 48648 units/250 mL (100 units/mL) in 0.45 % [...] Tibia Fibula Right With & Without Contrast [[id number]] Collected: 04/04/252256 Updated: 04/04/252302 Narrative: MRI TIBIA [...] represent a small area of phlegmonous change ([id number] image 10) measuring approximately 1.6 cm which [...] MD 04/04/2025 11:00 PM EDT Workstation ID: [id number] Impression: Right BKA stump cellulitis- 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 (Treated by ID in [place] Dr. Harris). Dr. Torres treated him with [...] infection POSTOP DIAGNOSIS: Same. PROCEDURE: Right Right 32604: Secondary closure below-knee amputation SURGEON: Sushil Dean MD OPERATIVE TEAM: Garage Manager: Susi Grullon RN Scrub Person: Mary Paredes Scrub Person Extra: Hortencia Toribio Other: Katt Gotti RN; Charis Neville RN ANESTHETIST: Anesthesiologist: Ulises Hoffman MD ENVIRONMENTAL AIDE: Stan Casillas CRNA Student Nurse Research Microbiologist: Karol Albert SRNA ANESTHESIA: Choice ESTIMATED BLOOD [...] CULTURE (Canceled) Sushil Dean Jr., MD 04/08/25 7945 Description: RIGHT LEG DEEP WOUND FOR CULTURE [...] [facility] [address] [facility] 250 OPERATIVE REPORT PATIENT NAME: Won Dennis DATE OF : 1980 PREOP DIAGNOSIS: Right Right below knee amputation stump infection POSTOP DIAGNOSIS: Same. PROCEDURE: Right Right 13289: Incision and drainage of surgical site infection 78199: Debridement of skin, subcutaneous tissue, muscle 94608: Wound vacuum-assisted closure SURGEON: Sushil Dean MD OPERATIVE TEAM: Garage Manager: Anum Sanchez RN Scrub Person: Hortencia Toribio; Gerald Ivey LACING OPERATOR: Anesthesiologist: Luci Alonso DO ANESTHESIA: General [...] this chart in the absence of a desk representative. No orders to display RADIOLOGY: [x] [...] is discharging home with outpatient infusion at [facility]. He has an appointment with [facility] at 8:00 am tomorrow. They will do PICC line dressing changes. CM has spoke with Dena at [facility] [...] with KELLEE and given themhis Medicare number [id number], she sent it to Admission. CM spoke with Kerri, with [facility], and explained that he had Medicare A and B. However, it will not cover home infusion. It will be $64.00 a day out of packet. Patients can go to the Infusion center at [facility], and it will cover the cost as an outpatient. He will need to go there every day for infusion. They will be able to do the patients' PICC line dressing changes and lab work. CM called [facility] infusion center they can accept patient and start him. He is known for their facility. The Facility will need to run it through his insurance first. CM faxed the orders over to [facility] at [phone]. CM will follow up with them tomorrow at [facility] to make sure they received [...] with patient at bedside today. Wheelchair from [employer] is at bedside. Patient getting PICC line [...] not included. Discharge Planning Assessment [facility] Patient Name: Won Dennis Today's Date: 04/07/2025 [...] family Patient/Family Anticipated Services at Transition family independence case managerdietary manager Anticipated family or friend will provide Discharge Needs Assessment Equipment Currently Used at Home glucometer;shower chair;pulse ox;bp cuff;prosthesis;crutches Equipment Needed After Discharge none Discharge Plan Row Name 04/07/25 1144 Plan Plan Home Patient/Family in Agreement with Plan yes Plan Comments CM spoke with patient at bedside today. Patient lives with and his 5 kids in [facility]. 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 He has walker, cane, shower chair, and crutches. He requested a wheelchair for home. CM will order wheelchair through [employer]. He is not current with home health services. PCP is Dr. Jordan. Insurance is [employer] Medicaid ID. Patient discharge plan is home with priavte transport. CM will follow for any discharge needs. Final Discharge Disposition Code 01 - home or self-care Continued Care and Services - Admitted Since 04/04/2025 No active coordination exists. Demographic Summary Row Name 04/07/25 1143 General Information Arrived From hospital Preferred Language Uruguayan Functional Status Row Name 04/07/25 1143 Functional [...] CBC Auto Differential (04/11/2025 3:40 AM EDT) [facility] WBC 7.87 3.40 - 10.80 10*3/mm3 04/11/2025 4:02 AM EDT [facility] RBC 4.70 4.14 - 5.80 10*6/mm3 04/11/2025 4:02 AM EDT [facility] Hemoglobin 12.8(L) 13.0 - 17.7 g/dL 04/11/2025 4:02 AM EDT [facility] Hematocrit 40.5 37.5 - 51.0 % 04/11/2025 4:02 AM EDT [facility] MCV 86.2 79.0 - 97.0 fL 04/11/2025 4:02 AM EDT [facility] MCH 27.2 26.6 - 33.0 pg 04/11/2025 4:02 AM EDT [facility] MCHC 31.6 31.5 - 35.7 g/dL 04/11/2025 4:02 AM EDT [facility] RDW 12.9 12.3 - 15.4 % 04/11/2025 4:02 AM EDT [facility] RDW-SD 40.5 37.0 - 54.0 fl 04/11/2025 4:02 AM EDT [facility] MPV 9.2 6.0 [...] 0.3 - 6.2 % 04/11/2025 4:02 AM [facility] Basophil % 0.4 0.0 - 1.5 % 04/11/2025 4:02 AM [facility] Immature Grans % 0.4 0.0 - 0.5 % 04/11/2025 4:02 AM [facility] Neutrophils, Absolute 4.69 1.70 - 7.00 10*3/mm3 04/11/2025 4:02 AM [facility] Lymphocytes, Absolute 2.07 0.70 - 3.10 10*3/mm3 04/11/2025 4:02 AM [facility] Monocytes, Absolute 0.73 0.10 - 0.90 10*3/mm3 04/11/2025 4:02 AM [facility] Eosinophils, Absolute 0.32 0.00 - 0.40 10*3/mm3 04/11/2025 4:02 AM [facility] Basophils, Absolute 0.03 0.00 - 0.20 10*3/mm3 04/11/2025 4:02 AM [facility] Immature Grans, Absolute 0.03 0.00 - 0.05 10*3/mm3 04/11/2025 4:02 AM [facility] nRBC 0.0 0.0 - 0.2 /100 WBC 04/11/2025 4:02 AM [facility] Blood Venipuncture / Unknown 04/11/2025 3:40 AM EDT 04/11/2025 3:59 AM EDT Sushil Dean Jr., MD LAB BLOOD ORDERABLES Fi nal Result [facility]
[address] [place] [address], * (ABNORMAL) Comprehensive Metabolic Panel (04/11/2025 3:40 AM EDT) Glucose 108(H) 65 - 99 mg/dL 04/11/2025 4:19 AM EDT [facility] BUN 12.5 6.0 - 20.0 mg/dL 04/11/2025 4:19 AM EDT [facility] Creatinine 0.68(L) 0.76 - 1.27 mg/dL 04/11/2025 4:19 AM EDT [facility] Sodium 140 136 - 145 mmol/L 04/11/2025 4:19 AM EDT [facility] Potassium 3.8 3.5 - 5.2 mmol/L 04/11/2025 4:19 AM EDT [facility] Chloride 105 98 - 107 mmol/L 04/11/2025 4:19 AM EDT [facility] CO2 28.2 22.0 - 29.0 mmol/L 04/11/2025 4:19 AM EDT [facility] Calcium 8.2(L) 8.6 - 10.5 mg/dL 04/11/2025 4:19 AM EDT [facility] Total Protein 6.1 6.0 - 8.5 g/dL 04/11/2025 4:19 AM EDT [facility] Albumin 3.1(L) 3.5 - 5.2 g/dL 04/11/2025 4:19 AM EDT [facility] ALT (SGPT) 52(H) 1 - 41 U/L 04/11/2025 4:19 AM EDT [facility] AST (SGOT) 40 1 - 40 U/L 04/11/2025 4:19 AM EDT [facility] Alkaline Phosphatase 99 39 - 117 U/L 04/11/2025 4:19 AM EDT [facility] Total Bilirubin 0.2 0.0 - 1.2 mg/dL 04/11/2025 4:19 AM EDT [facility] Globulin 3.0 gm/dL 04/11/2025 4:19 AM EDT [facility] Comment:Calculated Result A/G Ratio 1.0 g/dL 04/11/2025 4:19 AM EDT [facility] BUN/Creatinine Ratio 18.4 7.0 - 25.0 04/11/2025 4:19 AM EDT [facility] Anion Gap 6.8 5.0 - 15.0 mmol/L 04/11/2025 4:19 AM EDT [facility] eGFR 117.5 >60.0 mL/min/1.7 3 04/11/2025 4:19 AM T [facility] Blood Venipuncture / [...] Hill APRN LAB BLOOD ORDERABLES Final Result [facility]
[address] [place] [address], * (ABNORMAL) CBC Auto Differential (04/10/2025 3:46 AM EDT) [facility] WBC 9.60 3.40 - 10.80 10*3/mm3 04/10/2025 3:56 AM EDT [facility] RBC 4.67 4.14 - 5.80 10*6/mm3 04/10/2025 3:56 AM EDT [facility] Hemoglobin 12.9(L) 13.0 - 17.7 g/dL 04/10/2025 3:56 AM EDT [facility] Hematocrit 40.1 37.5 - 51.0 % 04/10/2025 3:56 AM EDT [facility] MCV 85.9 79.0 - 97.0 fL 04/10/2025 3:56 AM EDT [facility] MCH 27.6 26.6 - 33.0 pg 04/10/2025 3:56 AM EDT [facility] MCHC 32.2 31.5 - 35.7 g/dL 04/10/2025 3:56 AM EDT [facility] RDW 12.9 12.3 - 15.4 % 04/10/2025 3:56 AM EDT [facility] RDW-SD 40.5 37.0 - 54.0 fl 04/10/2025 3:56 AM EDT [facility] MPV 9.5 6.0 - 12.0 fL 04/10/2025 3:56 AM EDT [facility] Platelets 227 140 - 450 10*3/mm3 04/10/2025 3:56 AM EDT [facility] Neutrophil % 59.1 42.7 - 76.0 % 04/10/2025 3:56 AM EDT [facility] Lymphocyte % 29.0 19.6 - 45.3 % 04/10/2025 3:56 AM EDT [facility] Monocyte % 8.1 5.0 - 12.0 % 04/10/2025 3:56 AM EDT [facility] Eosinophil % 3.2 0.3 - 6.2 % 04/10/2025 3:56 AM EDT [facility] Basophil % 0.4 0.0 - 1.5 % 04/10/2025 3:56 AM EDT [facility] LABORATORY Immature Grans % 0.2 0.0 - 0.5 % 04/10/2025 3:56 AM EDT [facility] Neutrophils, Absolute 5.67 1.70 - 7.00 10*3/mm3 04/10/2025 3:56 AM EDT [facility] Lymphocytes, Absolute 2.78 0.70 - 3.10 10*3/mm3 04/10/2025 3:56 AM EDT [facility] Monocytes, Absolute 0.78 0.10 - 0.90 10*3/mm3 04/10/2025 3:56 AM EDT [facility] Eosinophils, Absolute 0.31 0.00 - 0.40 10*3/mm3 04/10/2025 3:56 AM EDT [facility] Basophils, Absolute 0.04 0.00 - 0.20 10*3/mm3 04/10/2025 3:56 AM EDT [facility] Immature Grans, Absolute 0.02 0.00 - 0.05 10*3/mm3 04/10/2025 3:56 AM EDT [facility] nRBC 0.0 0.0 - 0.2 /100 WBC 04/10/2025 3:56 AM EDT [facility] Blood Venipuncture / Unknown 04/10/2025 3:46 AM EDT 04/10/2025 3:53 AM EDT us Jason Álvarez DO LAB BLOOD ORDERABLES Final Resul t [facility]
[address] [place] [address], * (ABNORMAL) Basic Metabolic Panel (04/10/2025 3:46 AM EDT) [facility] Glucose 125(H) 65 - 99 mg/dL 04/10/2025 4:20 AM [facility] BUN 15.9 6.0 - 20.0 mg/dL 04/10/2025 4:20 AM [facility] Creatinine 0.77 0.76 - 1.27 mg/dL 04/10/2025 4:20 AM [facility] Sodium 137 136 - 145 mmol/L 04/10/2025 4:20 AM T [facility] Potassium 3.9 3.5 - 5.2 mmol/L 04/10/2025 4:20 AM T [facility] Chloride 102 98 - 107 mmol/L 04/10/2025 4:20 AM [facility] CO2 26.9 22.0 - 29.0 mmol/L 04/10/2025 4:20 AM [facility] Calcium 7.9(L) 8.6 - 10.5 mg/dL 04/10/2025 4:20 AM [facility] BUN/Creatinine Ratio 20.6 7.0 - 25.0 04/10/2025 4:20 AM [facility] Anion Gap 8.1 5.0 - 15.0 mmol/L 04/10/2025 4:20 AM [facility] eGFR 113.2 >60.0 mL/min/1.7 3 04/10/2025 4:20 AM [facility] Blood Venipuncture / Unknown 04/10/2025 [...] Álvarez LAB BLOOD ORDERABLES Final Resul t [facility]
[address] [place] [address], * Heparin Anti-Xa (04/10/2025 3:46 AM EDT) Heparin Anti-Xa (UFH) 0.35 0.30 - 0.70 IU/ml 04/10/2025 4:23 AM EDT [facility] Blood Venipuncture / Unknown 04/10/2025 3:46 AM EDT 04/10/2025 3:53 AM EDT Larisa [facility] LAB BLOOD ORDERABLES Final R esult Performing Organization Address City/[facility]/ZIP Co de Phone Number [facility]
[address] [place] [address], * Heparin Anti-Xa (04/09/2025 10:05 AM EDT) [facility] Heparin Anti-Xa (UFH) 0.36 0.30 - 0.70 IU/ml 04/09/2025 11:12 AM EDT [facility] Blood Venipuncture / Unknown 04/09/2025 10:05 AM EDT 04/09/2025 10:47 AM EDT [facility] LAB BLOOD ORDERABLES Final R esult [facility]
[address] [place] [address], * (ABNORMAL) CBC Auto Differential (04/09/2025 4:18 AM EDT) Pathologist [facility] WBC 11.00(H) 3.40 - 10.80 10*3/mm3 04/09/2025 4:50 AM EDT [facility] RBC 4.70 4.14 - 5.80 10*6/mm3 04/09/2025 4:50 AM EDT [facility] Hemoglobin 13.0 13.0 - 17.7 g/dL 04/09/2025 4:50 AM EDT [facility] Hematocrit 40.4 37.5 - 51.0 % 04/09/2025 4:50 AM EDT [facility] MCV 86.0 79.0 - 97.0 fL 04/09/2025 4:50 AM EDT [facility] MCH 27.7 26.6 - 33.0 pg 04/09/2025 4:50 AM [facility] MCHC 32.2 31.5 - 35.7 g/dL 04/09/2025 4:50 AM [facility] RDW 12.8 12.3 - 15.4 % 04/09/2025 4:50 AM [facility] RDW-SD 39.9 37.0 - 54.0 fl 04/09/2025 4:50 AM [facility] MPV 10.0 6.0 - 12.0 fL 04/09/2025 4:50 AM [facility] Platelets 211 140 - 450 10*3/mm3 04/09/2025 4:50 AM EDT [facility] Neutrophil % 74.8 42.7 - 76.0 % 04/09/2025 4:50 AM EDT [facility] Lymphocyte % 15.4(L) 19.6 - 45.3 % 04/09/2025 4:50 AM EDT [facility] Monocyte % 8.5 5.0 - 12.0 % 04/09/2025 4:50 AM EDT [facility] Eosinophil % 0.6 0.3 - 6.2 % 04/09/2025 4:50 AM EDT [facility] Basophil % 0.4 0.0 - 1.5 % 04/09/2025 4:50 AM EDT [facility] Immature Grans % 0.3 0.0 - 0.5 % 04/09/2025 4:50 AM EDT [facility] Neutrophils, Absolute 8.23(H) 1.70 - 7.00 10*3/mm3 04/09/2025 4:50 AM EDT [facility] Lymphocytes, Absolute 1.69 0.70 - 3.10 10*3/mm3 04/09/2025 4:50 AM EDT [facility] Monocytes, Absolute 0.94(H) 0.10 - 0.90 10*3/mm3 04/09/2025 4:50 AM EDT [facility] Eosinophils, Absolute 0.07 0.00 - 0.40 10*3/mm3 04/09/2025 4:50 AM EDT [facility] Basophils, Absolute 0.04 0.00 - 0.20 10*3/mm3 04/09/2025 4:50 AM EDT [facility] Immature Grans, Absolute 0.03 0.00 - 0.05 10*3/mm3 04/09/2025 4:50 AM EDT [facility] nRBC 0.0 0.0 - 0.2 /100 WBC 04/09/2025 4:50 AM EDT [facility] Blood Venipuncture / Unknown 04/09/2025 4:18 AM EDT 04/09/2025 4:31 AM EDT us Sushil Dean Jr., MD LAB BLOOD ORDERABLES Fi nal Result [facility]
[address] [place] [address], * Heparin Anti-Xa (04/09/2025 4:18 AM EDT) Pathologist [facility] Heparin Anti-Xa (UFH) 0.41 0.30 - 0.70 IU/ml 04/09/2025 4:53 AM EDT [facility] Blood Venipuncture / Unknown 04/09/2025 4:18 AM EDT 04/09/2025 4:31 AM EDT Una Perla PharmD LAB BLOOD ORDERABLES Final R esult [facility]
[address] [place] [address], * (ABNORMAL) Basic Metabolic Panel (04/09/2025 4:18 AM EDT) Glucose 147(H) 65 - 99 mg/dL 04/09/2025 5:33 AM EDT [facility] BUN 23.0(H) 6.0 - 20.0 mg/dL 04/09/2025 5:33 AM EDT [facility] Creatinine 1.15 0.76 - 1.27 mg/dL 04/09/2025 5:33 AM EDT [facility] Sodium 135(L) 136 - 145 mmol/L 04/09/2025 5:33 AM EDT [facility] Potassium 4.2 3.5 - 5.2 mmol/L 04/09/2025 5:33 AM EDT [facility] Chloride 100 98 - 107 mmol/L 04/09/2025 5:33 AM EDT [facility] CO2 26.0 22.0 - 29.0 mmol/L 04/09/2025 5:33 AM EDT [facility] Calcium 8.2(L) 8.6 - 10.5 mg/dL 04/09/2025 5:33 AM EDT [facility] BUN/Creatinine Ratio 20.0 7.0 - 25.0 04/09/2025 5:33 AM EDT [facility] Anion Gap 9.0 5.0 - 15.0 mmol/L 04/09/2025 5:33 AM EDT [facility] eGFR 80.5 >60.0 mL/min/1.7 3 04/09/2025 5:33 AM [facility] Blood Venipuncture / Unknown 04/09/2025 4:18 AM EDT 04/09/2025 4:29 AM EDT Narrative [facility] - 04/09/2025 5:33 AM [...] nal Result Performing Organization Address City/[facility]/ZIP Co de Phone Number [facility]
[address] [place] [address], [place] [phone] * Wound Culture - Swab, Leg, Right (04/08/2025 3:40 PM EDT) Wound Culture No growth at 3 days ALIZA 04/11/2025 10:40 AM EDT [facility] Gram Stain Few (2+) WBCs seen 04/11/2025 10:40 AM EDT [facility] Gram Stain No organisms seen 04/11/2025 10:40 AM EDT [facility] Swab Structure of right lower limb / Unknown 04/08/2025 3:40 PM EDT 04/08/2025 8:05 PM EDT Sushil Dean Jr., MD MICROBIOLOGY - GENERAL ORDERABLES Final Result [facility]
[address] [place] [address], [facility]
[address] [place] [address], [place] [phone] * Anaerobic Culture - Swab, Leg, Right (04/08/2025 3:40 PM EDT) Pathologist [facility] Anaerobic Culture No anaerobes isolated at 5 days ALIZA 04/13/2025 7:24 AM EDT [facility] Swab Structure of right lower limb / Unknown 04/08/2025 3:40 PM EDT 04/08/2025 8:05 PM EDT Sushil Dean Jr., MD MICROBIOLOGY - GENERAL ORDERABLES Final Result [facility]
[address] [place] [address], * Scan Slide (04/08/2025 8:41 AM EDT) Pathologist [facility] RBC Morphology Normal Normal 04/08/2025 11:02 AM EDT [facility] WBC Morphology Normal Normal 04/08/2025 11:02 AM EDT [facility] Platelet Estimate Adequate Normal 04/08/2025 11:02 AM EDT [facility] Clumped Platelets Present None Seen 04/08/2025 11:02 AM EDT [facility] Blood Venipuncture / Unknown 04/08/2025 8:41 AM EDT 04/08/2025 9:10 AM EDT Una Perla PharmD LAB BLOOD ORDERABLES Final R esult [facility]
[address] [place] [address], * (ABNORMAL) CBC Auto Differential (04/08/2025 8:41 AM EDT) Pathologist [facility] WBC 10.07 3.40 - 10.80 10*3/mm3 04/08/2025 11:02 AM EDT [facility] RBC 5.01 4.14 - 5.80 10*6/mm3 04/08/2025 11:02 AM [facility] Hemoglobin 14.0 13.0 - 17.7 g/dL 04/08/2025 11:02 AM [facility] Hematocrit 42.7 37.5 - 51.0 % 04/08/2025 11:02 AM [facility] MCV 85.2 79.0 - 97.0 fL 04/08/2025 11:02 AM [facility] MCH 27.9 26.6 - 33.0 pg 04/08/2025 11:02 AM [facility] MCHC 32.8 31.5 - 35.7 g/dL 04/08/2025 11:02 AM [facility] RDW 12.6 12.3 - 15.4 % 04/08/2025 11:02 AM [facility] RDW-SD 38.9 37.0 - 54.0 [...] - 0.5 % 04/08/2025 11:02 AM EDT [facility] Neutrophils, Absolute 8.57(H) 1.70 - 7.00 10*3/mm3 04/08/2025 11:02 AM EDT [facility] Lymphocytes, Absolute 0.94 0.70 - 3.10 10*3/mm3 04/08/2025 11:02 AM EDT [facility] Monocytes, Absolute 0.46 0.10 - 0.90 10*3/mm3 04/08/2025 11:02 AM EDT [facility] Eosinophils, Absolute 0.03 0.00 - 0.40 10*3/mm3 04/08/2025 11:02 AM EDT [facility] Basophils, Absolute 0.02 0.00 - 0.20 10*3/mm3 04/08/2025 11:02 AM EDT [facility] Immature Grans, Absolute 0.05 0.00 - 0.05 10*3/mm3 04/08/2025 11:02 AM EDT [facility] nRBC 0.0 0.0 - 0.2 /100 WBC 04/08/2025 11:02 AM EDT [facility] Blood Venipuncture / Unknown 04/08/2025 8:41 AM EDT 04/08/2025 9:10 AM EDT Una Perla PharmD LAB BLOOD ORDERABLES Final R esult [facility]
[address] [place] [address], * (ABNORMAL) Basic Metabolic Panel (04/08/2025 8:41 AM EDT) Glucose 125(H) 65 - 99 mg/dL 04/08/2025 9:51 AM EDT [facility] BUN 13.2 6.0 - 20.0 mg/dL 04/08/2025 9:51 AM EDT [facility] Creatinine 0.69(L) 0.76 - 1.27 mg/dL 04/08/2025 9:51 AM EDT [facility] Sodium 136 136 - 145 mmol/L 04/08/2025 9:51 AM EDT [facility] Potassium 4.6 3.5 - 5.2 mmol/L 04/08/2025 9:51 AM EDT [facility] Chloride 102 98 - 107 mmol/L 04/08/2025 9:51 AM EDT [facility] CO2 23.5 22.0 - 29.0 mmol/L 04/08/2025 9:51 AM EDT [facility] Calcium 8.4(L) 8.6 - 10.5 mg/dL 04/08/2025 9:51 AM EDT [facility] BUN/Creatinine Ratio 19.1 7.0 - 25.0 04/08/2025 9:51 AM EDT [facility] Anion Gap 10.5 5.0 - 15.0 mmol/L 04/08/2025 9:51 AM EDT [facility] eGFR 117.0 >60.0 mL/min/1.7 3 04/08/2025 9:51 AM EDT [facility] Blood Venipuncture / Unknown 04/08/2025 8:41 AM EDT 04/08/2025 9:09 AM EDT Narrative [facility] - 04/08/2025 9:51 AM [...] Jr., MD LAB BLOOD ORDERABLES nal Result [facility]
[address] [place] [address], [place] [phone] * Heparin Anti-Xa (04/08/2025 8:41 AM EDT) Heparin Anti-Xa (UFH) 0.33 0.30 - 0.70 IU/ml 04/08/2025 9:40 AM EDT [facility] Blood Venipuncture / Unknown 04/08/2025 8:41 AM EDT 04/08/2025 9:10 AM EDT us Sushil Dean Jr., MD LAB BLOOD ORDERABLES Fi nal Result [facility]
[address] [place] [address], [place] [phone] * [place] C Arm During Surgery (04/07/2025 9:32 PM EDT) Narrative SYSTEMGENERATED, DOCUMENTATION - 04/07/2025 9:38 PM EDT This procedure was auto-finalized with no dictation required. us Sushil Dean Jr., MD IMG FLUOROSCOPY ORDERAB LES Final Result * Wound Culture - Swab, Leg, Right (04/07/2025 9:14 PM EDT) Wound Culture No growth at 3 days ALIZA 04/11/2025 10:40 AM EDT [facility] Gram Stain Occasional WBCs seen 04/11/2025 10:40 AM EDT [facility] Gram Stain No organisms seen 04/11/2025 10:40 AM EDT [facility] Swab Structure of right lower limb / Unknown Collection / Unknown 04/07/2025 9:14 PM EDT 04/08/2025 4:36 AM EDT us Sushil Dean Jr., MD MICROBIOLOGY - GENERAL ORDERABLES Final Result Performing Organization Address City/[facility]/ZIP Co de Phone Number [facility]
[address] [place] [address], [facility]
[address] [place] [address], * Anaerobic Culture - Swab, Leg, Right (04/07/2025 9:14 PM EDT) Anaerobic Culture No anaerobes isolated at 5 days ALIZA 04/13/2025 7:21 AM EDT [facility] Swab Structure of right lower limb / Unknown Collection / Unknown 04/07/2025 9:14 PM EDT 04/08/2025 4:36 AM EDT Sushil Dean Jr., MD MICROBIOLOGY - GENERAL ORDERABLES Final Result Performing Organization Address [facility]/ZIP Co de Phone Number [facility]
[address] [place] [address], * Anaerobic Culture - Tissue, Leg (04/07/2025 9:13 PM EDT) Anaerobic Culture No anaerobes isolated at 5 days ALIZA 04/13/2025 7:21 AM EDT [facility] Tissue Lower limb structure / Unknown Collection / Unknown 04/07/2025 9:13 PM EDT 04/08/2025 4:54 AM EDT Jason Álvarez DO MICROBIOLOGY - GENERAL ORDERABLE S Final Result Performing Organization Address [facility]/ZIP Co de Phone Number [facility]
[address] [place] [address], * Tissue / Bone Culture - Tissue, Leg, Right (04/07/2025 9:13 PM EDT) Tissue Culture No growth at 3 days ALIZA 04/11/2025 10:36 AM EDT [facility] Gram Stain Rare (1+) WBCs seen 04/11/2025 10:36 AM EDT [facility] Gram Stain No organisms seen 04/11/2025 10:36 AM EDT [facility] Tissue Structure of right lower limb / Unknown 04/07/2025 9:13 PM EDT 04/08/2025 4:54 AM EDT Sushil Dean Jr., MD MICROBIOLOGY - GENERAL ORDERABLES Final Result [facility]
[address] [place] [address], [place] [phone] [facility]
[address] [place] [address], [place] [phone] * (ABNORMAL) Wound Culture - Swab, Leg, Right (04/07/2025 9:07 PM EDT) Wound Culture Light growth (2+) Staphylococcus aureus, MRSA(A) ALIZA 04/10/2025 10:38 AM EDT [facility] Comment: Methicillin resistant Staphylococcus aureus, Patient may be an isolation risk. Gram Stain Few (2+) WBCs seen 04/10/2025 10:38 AM EDT [facility] Gram Stain No organisms seen 10:38 AM EDT [facility] Swab [...] GENERAL ORDERABLES Final Result Performing Organization Address [facility] Co de Phone Number [facility]
[address] [place] [address], [facility]
[address] [place] [address], [place] [phone] * Anaerobic Culture - Swab, Leg, Right (04/07/2025 9:07 PM EDT) [facility] Anaerobic Culture No anaerobes isolated at 5 days ALIZA 04/13/2025 7:21 AM EDT [facility] Swab Structure of right lower limb / Unknown Collection / Unknown 04/07/2025 9:07 PM EDT 04/08/2025 4:36 AM EDT Sushil Dean Jr., MD MICROBIOLOGY - GENERAL ORDERABLES Final Result Performing Organization Address [facility] Co de Phone Number [facility]
[address] [place] [address], * Heparin Anti-Xa (04/07/2025 9:10 AM EDT) [facility] Heparin Anti-Xa (UFH) 0.30 0.30 - 0.70 IU/ml 04/07/2025 10:12 AM EDT [facility] Blood Venipuncture / Unknown 04/07/2025 9:10 AM EDT 04/07/2025 9:38 AM EDT Una Perla PharmD LAB BLOOD ORDERABLES Final R esult Performing Organization Address [facility] Co de Phone Number [facility]
[address] [place] [address], [place] [phone] * (ABNORMAL) CBC Auto Differential (04/07/2025 9:10 AM EDT) [facility] WBC 8.63 3.40 - 10.80 10*3/mm3 04/07/2025 9:50 AM EDT [facility] RBC 5.23 4.14 - 5.80 10*6/mm3 04/07/2025 9:50 AM EDT [facility] Hemoglobin 14.7 13.0 - 17.7 g/dL 04/07/2025 9:50 AM EDT [facility] Hematocrit 44.8 37.5 - 51.0 % 04/07/2025 9:50 AM EDT [facility] MCV 85.7 79.0 - 97.0 fL 04/07/2025 9:50 AM EDT [facility] MCH 28.1 26.6 - 33.0 pg 04/07/2025 9:[facility] MCHC 32.8 31.5 - 35.7 g/dL 04/07/2025 9:50 AM [facility] RDW 12.8 12.3 - 15.4 % 04/07/2025 9:50 AM [facility] RDW-SD 39.9 37.0 - 54.0 fl 04/07/2025 9:50 AM [facility] MPV 10.8 6.0 - 12.0 fL 04/07/2025 9:50 AM [facility] Platelets 149 140 - 450 10*3/mm3 04/07/2025 9:50 AM [facility] Neutrophil % 66.7 42.7 - 76.0 % 04/07/2025 9:50 AM EDT [facility] Lymphocyte % 20.5 19.6 - 45.3 % 04/07/2025 9:50 AM EDT [facility] Monocyte % 9.8 5.0 - 12.0 % 04/07/2025 9:50 AM EDT [facility] Eosinophil % 2.1 0.3 - 6.2 % 04/07/2025 9:50 AM EDT [facility] Basophil % 0.3 0.0 - 1.5 % 04/07/2025 9:50 AM EDT [facility] Immature Grans % 0.6(H) 0.0 - 0.5 % 04/07/2025 9:50 AM EDT [facility] Neutrophils, Absolute 5.75 1.70 - 7.00 10*3/mm3 04/07/2025 9:50 AM EDT [facility] Lymphocytes, Absolute 1.77 0.70 - 3.10 10*3/mm3 04/07/2025 9:50 AM EDT [facility] Monocytes, Absolute 0.85 0.10 - 0.90 10*3/mm3 04/07/2025 9:50 AM EDT [facility] Eosinophils, Absolute 0.18 0.00 - 0.40 10*3/mm3 04/07/2025 9:50 AM EDT [facility] Basophils, Absolute 0.03 0.00 - 0.20 10*3/mm3 04/07/2025 9:50 AM EDT [facility] Immature Grans, Absolute 0.05 0.00 - 0.05 10*3/mm3 04/07/2025 9:50 AM EDT [facility] nRBC 0.0 0.0 - 0.2 /100 WBC 04/07/2025 9:50 AM EDT [facility] Blood Venipuncture / Unknown 04/07/2025 9:10 AM EDT 04/07/2025 9:38 AM EDT us Jason Álvarez DO LAB BLOOD ORDERABLES Final Resul t [facility]
[address] [place] [address], * (ABNORMAL) Basic Metabolic Panel (04/07/2025 9:10 AM EDT) Glucose 112(H) 65 - 99 mg/dL 04/07/2025 10:19 AM EDT [facility] BUN 13.1 6.0 - 20.0 mg/dL 04/07/2025 10:19 AM [facility] Creatinine 0.77 0.76 - 1.27 mg/dL 04/07/2025 10:19 AM [facility] Sodium 139 136 - 145 mmol/L 04/07/2025 10:19 AM [facility] Potassium 4.2 3.5 - 5.2 mmol/L 04/07/2025 10:19 AM [facility] Comment:Specimen hemolyzed. Result may be falsely elevated. Chloride 105 98 - 107 mmol/L 04/07/2025 10:19 AM [facility] CO2 24.8 22.0 - 29.0 mmol/L 04/07/2025 10:19 AM [facility] Calcium 8.6 8.6 - 10.5 mg/dL 04/07/2025 10:19 AM [facility] BUN/Creatinine Ratio 17.0 7.0 - 25.0 04/07/2025 10:19 AM [facility] Anion Gap 9.2 5.0 - 15.0 mmol/L 04/07/2025 10:19 AM [facility] eGFR 113.2 >60.0 mL/min/1.7 3 04/07/2025 10:19 AM [facility] Blood Venipuncture / Unknown 04/07/2025 [...] DO LAB BLOOD ORDERABLES Final Resul t [facility]
[address] [id number], * MRI Tibia Fibula Right With & [...] [place] 04/07/2025 9:58 AM EDT Workstation ID: [id number] Narrative 04/07/2025 9:58 AM EDT MRI TIBIA [...] [place] 04/07/2025 9:58 AM EDT Workstation ID: [id number] us Sushil Dean Jr., MD IMG MRI ORDERABLES Mary Beth l Result * Heparin Anti-Xa (04/07/2025 1:42 AM EDT) Heparin Anti-Xa (UFH) 0.38 0.30 - 0.70 IU/ml 04/07/2025 2:14 AM EDT [facility] Blood Venipuncture / Unknown 04/07/2025 1:42 AM EDT 04/07/2025 1:54 AM EDT Chelsie Navarretesapna [facility] LAB BLOOD ORDERABLES Final R esult [facility]
[address] [place] [address], * Heparin Anti-Xa (04/06/2025 7:16 PM EDT) Pathologist [facility] Heparin Anti-Xa (UFH) 0.33 0.30 - 0.70 IU/ml 04/06/2025 7:50 PM EDT [facility] Blood Venipuncture / Unknown 04/06/2025 7:16 PM EDT 04/06/2025 7:35 PM EDT Cherri Beatty [facility] LAB BLOOD ORDERABLES Final Res ult [facility]
[address] [place] [address], * Potassium (04/06/2025 7:16 PM EDT) Pathologist [facility] Potassium 4.0 3.5 - 5.2 mmol/L 04/06/2025 7:53 PM EDT [facility] Blood Venipuncture / Unknown 04/06/2025 7:16 PM EDT 04/06/2025 7:35 PM EDT Jason Álvarez DO LAB BLOOD ORDERABLES Final Resul t Performing Organization Address City/[facility]/ZIP Co de Phone Number [facility]
[address] [place] [address], * (ABNORMAL) Heparin Anti-Xa (04/06/2025 12:36 PM EDT) Heparin Anti-Xa (UFH) 0.24(L) 0.30 - 0.70 IU/ml 04/06/2025 1:23 PM EDT [facility] Blood Venipuncture / Unknown 04/06/2025 12:36 PM EDT 04/06/2025 1:07 PM EDT Una LundbergD LAB BLOOD ORDERABLES Final R esult Performing Organization Address [facility] Co de Phone Number [facility]
[address] [place] [address], * (ABNORMAL) Heparin Anti-Xa (04/06/2025 3:42 AM EDT) Heparin Anti-Xa (UFH) 0.25(L) 0.30 - 0.70 IU/ml 04/06/2025 5:30 AM EDT [facility] Blood Venipuncture / Unknown 04/06/2025 3:42 AM EDT 04/06/2025 4:59 AM EDT Chelsie Turpin [facility] LAB BLOOD ORDERABLES Final R esult Performing Organization Address City/[facility]/ZIP Co de Phone Number [facility]
[address] [place] [address], * (ABNORMAL) Basic Metabolic Panel (04/06/2025 3:42 AM EDT) Glucose 94 65 - 99 mg/dL 04/06/2025 5:59 AM EDT [facility] BUN 12.8 6.0 - 20.0 mg/dL 04/06/2025 5:59 AM EDT [facility] Creatinine 0.80 0.76 - 1.27 mg/dL 04/06/2025 5:59 AM EDT [facility] Sodium 138 136 - 145 mmol/L 04/06/2025 5:59 AM EDT [facility] Potassium 3.6 3.5 - 5.2 mmol/L 04/06/2025 5:59 AM EDT [facility] Chloride 103 98 - 107 mmol/L 04/06/2025 5:59 AM EDT [facility] CO2 24.2 22.0 - 29.0 mmol/L 04/06/2025 5:59 AM EDT [facility] Calcium 8.0(L) 8.6 - 10.5 mg/dL 04/06/2025 5:59 AM T [facility] BUN/Creatinine Ratio 16.0 7.0 - 25.0 04/06/2025 5:59 AM EDT [facility] Anion Gap 10.8 5.0 - 15.0 mmol/L 04/06/2025 5:59 AM [facility] eGFR 111.9 >60.0 mL/min/1.7 3 04/06/2025 5:59 AM [facility] Blood Venipuncture / Unknown 04/06/2025 [...] DO LAB BLOOD ORDERABLES Final Resul t [facility]
[address] [place] [address], * (ABNORMAL) CBC Auto Differential (04/06/2025 3:41 AM EDT) WBC 10.86(H) 3.40 - 10.80 10*3/mm3 04/06/2025 5:04 AM EDT [facility] RBC 5.08 4.14 - 5.80 10*6/mm3 04/06/2025 5:04 AM EDT [facility] Hemoglobin 13.9 13.0 - 17.7 g/dL 04/06/2025 5:04 AM EDT [facility] Hematocrit 43.7 37.5 - 51.0 % 04/06/2025 5:04 AM EDT [facility] MCV 86.0 79.0 - 97.0 fL 04/06/2025 5:04 AM EDT [facility] MCH 27.4 26.6 - 33.0 pg 04/06/2025 5:04 AM EDT [facility] MCHC 31.8 31.5 - 35.7 g/dL 04/06/2025 5:04 AM EDT [facility] RDW 12.8 12.3 - 15.4 % 04/06/2025 5:04 AM EDT [facility] RDW-SD 40.0 37.0 - 54.0 fl 04/06/2025 5:04 AM EDT [facility] MPV 11.7 6.0 - 12.0 fL 04/06/2025 5:04 AM EDT [facility] Platelets 115(L) 140 - 450 10*3/mm3 04/06/2025 5:04 AM EDT [facility] Neutrophil % 65.3 42.7 - 76.0 % 04/06/2025 5:04 AM EDT [facility] Lymphocyte % 20.5 19.6 - 45.3 % 04/06/2025 5:04 AM EDT [facility] Monocyte % 11.8 5.0 - 12.0 % 04/06/2025 5:04 AM EDT [facility] Eosinophil % 1.8 0.3 - 6.2 % 04/06/2025 5:04 AM EDT [facility] Basophil % 0.3 0.0 - 1.5 % 04/06/2025 5:04 AM EDT [facility] Immature Grans % 0.3 0.0 - 0.5 % 04/06/2025 5:04 AM EDT [facility] Neutrophils, Absolute 7.09(H) 1.70 - 7.00 10*3/mm3 04/06/2025 5:04 AM EDT [facility] Lymphocytes, Absolute 2.23 0.70 - 3.10 10*3/mm3 04/06/2025 5:04 AM EDT [facility] Monocytes, Absolute 1.28(H) 0.10 - 0.90 10*3/mm3 04/06/2025 5:04 AM EDT [facility] Eosinophils, Absolute 0.20 0.00 - 0.40 10*3/mm3 04/06/2025 5:04 AM EDT [facility] Basophils, Absolute 0.03 0.00 - 0.20 10*3/mm3 04/06/2025 5:04 AM EDT [facility] Immature Grans, Absolute 0.03 0.00 - 0.05 10*3/mm3 04/06/2025 5:04 AM EDT [facility] nRBC 0.0 0.0 - 0.2 /100 WBC 04/06/2025 5:04 AM EDT [facility] Blood Venipuncture / Unknown 04/06/2025 3:41 AM EDT 04/06/2025 4:58 AM EDT us Jason Álvarez DO LAB BLOOD ORDERABLES Final Resul t [facility]
[address] [place] [address], * Heparin Anti-Xa (04/05/2025 8:43 PM EDT) Heparin Anti-Xa (UFH) 0.38 0.30 - 0.70 IU/ml 04/05/2025 9:09 PM EDT [facility] Blood Venipuncture / Unknown 04/05/2025 8:43 PM EDT 04/05/2025 8:55 PM EDT Cherri Beatty [facility] LAB BLOOD ORDERABLES Final Res ult [facility]
[address] [place] [address], * CK (04/05/2025 12:15 PM EDT) Pathologist [facility] Creatine Kinase 140 20 - 200 U/L 04/05/2025 1:31 PM EDT [facility] Blood Venipuncture / Unknown 04/05/2025 12:15 PM EDT 04/05/2025 1:03 PM EDT Carlton Mead MD LAB BLOOD ORDERABLES Final R esult [facility]
[address] [place] [address], * (ABNORMAL) Heparin Anti-Xa (04/05/2025 12:15 PM EDT) Heparin Anti-Xa (UFH) 0.17(L) 0.30 - 0.70 IU/ml 04/05/2025 1:21 PM EDT [facility] Blood Venipuncture / Unknown 04/05/2025 12:15 PM EDT 04/05/2025 1:04 PM EDT [employer] LAB BLOOD ORDERABLES Final R esult Performing Organization Address City/[facility]/ZIP Co de Phone Number [facility]
[address] [place] [address], * (ABNORMAL) aPTT (04/05/2025 3:54 AM EDT) PTT 35.3(L) 60.0 - 90.0 seconds 04/05/2025 4:31 AM EDT [facility] Blood Venipuncture / Unknown 04/05/2025 3:54 AM EDT 04/05/2025 4:15 AM EDT Narrative [facility] - 04/05/2025 4:31 AM EDT PTT = The equivalent PTT values for the therapeutic range of heparin levels at 0.3 to 0.5 U/ml are 60 to 70 seconds. [facility] LAB BLOOD ORDERABLES Final R esult Performing Organization Address [facility] Co de Phone Number [facility]
[address] [place] [address], * Heparin Anti-Xa (04/05/2025 3:54 AM EDT) Pathologist [facility] Heparin Anti-Xa (UFH) 0.30 0.30 - 0.70 IU/ml 04/05/2025 4:32 AM EDT [facility] Blood Venipuncture / Unknown 04/05/2025 3:54 AM EDT 04/05/2025 4:15 AM EDT Motosmarty PharmD LAB BLOOD ORDERABLES Final R esult Performing Organization Address City/[facility]/ZIP Co de Phone Number [facility]
[address] [place] [address], [place] [phone] * (ABNORMAL) CBC Auto Differential (04/05/2025 3:54 AM EDT) [facility] WBC 11.18(H) 3.40 - 10.80 10*3/mm3 04/05/2025 4:20 AM EDT [facility] RBC 5.00 4.14 - 5.80 10*6/mm3 04/05/2025 4:20 AM EDT [facility] Hemoglobin 13.9 13.0 - 17.7 g/dL 04/05/2025 4:20 AM EDT [facility] Hematocrit 42.4 37.5 - 51.0 % 04/05/2025 4:20 AM EDT [facility] MCV 84.8 79.0 - 97.0 fL 04/05/2025 4:20 AM EDT [facility] MCH 27.8 26.6 - 33.0 pg 04/05/2025 4:20 AM EDT [facility] MCHC 32.8 31.5 - 35.7 g/dL 04/05/2025 4:20 AM [facility] RDW 12.9 12.3 - 15.4 % 04/05/2025 4:20 AM T [facility] RDW-SD 39.7 37.0 - 54.0 fl 04/05/2025 4:20 AM [facility] MPV 10.2 6.0 - 12.0 fL 04/05/2025 4:20 AM EDT [facility] Platelets 160 140 - 450 10*3/mm3 04/05/2025 4:20 AM EDT [facility] Neutrophil % 73.5 42.7 - 76.0 % 04/05/2025 4:20 AM T [facility] Lymphocyte % 14.0(L) 19.6 - 45.3 % 04/05/2025 4:20 AM EDT [facility] Monocyte % 11.0 5.0 - 12.0 % 04/05/2025 4:20 AM EDT [facility] Eosinophil % 0.8 0.3 - 6.2 % 04/05/2025 4:20 AM EDT [facility] Basophil % 0.3 0.0 - 1.5 % 04/05/2025 4:20 AM EDT [facility] Immature Grans % 0.4 0.0 - 0.5 % 04/05/2025 4:20 AM EDT [facility] Neutrophils, Absolute 8.23(H) 1.70 - 7.00 10*3/mm3 04/05/2025 4:20 AM EDT [facility] Lymphocytes, Absolute 1.56 0.70 - 3.10 10*3/mm3 04/05/2025 4:20 AM EDT [facility] Monocytes, Absolute 1.23(H) 0.10 - 0.90 10*3/mm3 04/05/2025 4:20 AM EDT [facility] Eosinophils, Absolute 0.09 0.00 - 0.40 10*3/mm3 04/05/2025 4:20 AM EDT [facility] Basophils, Absolute 0.03 0.00 - 0.20 10*3/mm3 04/05/2025 4:20 AM EDT [facility] Immature Grans, Absolute 0.04 0.00 - 0.05 10*3/mm3 04/05/2025 4:20 AM EDT [facility] nRBC 0.0 0.0 - 0.2 /100 WBC 04/05/2025 4:20 AM EDT [facility] Blood Venipuncture / Unknown 04/05/2025 3:54 AM EDT 04/05/2025 4:16 AM EDT us Una Perla PharmD LAB BLOOD ORDERABLES Final R esult [facility]
[address] [place] [address], * (ABNORMAL) Basic Metabolic Panel (04/05/2025 3:54 AM EDT) [facility] Signature Glucose 152(H) 65 - 99 mg/dL 04/05/2025 4:40 AM [facility] BUN 17.3 6.0 - 20.0 mg/dL 04/05/2025 4:40 AM [facility] Creatinine 0.92 0.76 - 1.27 mg/dL 04/05/2025 4:40 AM [facility] Sodium 136 136 - 145 mmol/L 04/05/2025 4:40 AM [facility] Potassium 3.9 3.5 - 5.2 mmol/L 04/05/2025 4:40 AM T [facility] Chloride 103 98 - 107 mmol/L 04/05/2025 4:40 AM [facility] CO2 24.0 22.0 - 29.0 mmol/L 04/05/2025 4:40 AM [facility] Calcium 7.8(L) 8.6 - 10.5 mg/dL 04/05/2025 4:40 AM [facility] BUN/Creatinine Ratio 18.8 7.0 - 25.0 04/05/2025 4:40 AM [facility] Anion Gap 9.0 5.0 - 15.0 mmol/L 04/05/2025 4:40 AM [facility] eGFR 105.2 >60.0 mL/min/1.7 3 04/05/2025 4:40 AM [facility] Blood Venipuncture / Unknown 04/05/2025 3:54 AM EDT 04/05/2025 4:15 AM [facility] - 04/05/2025 4:40 AM EDT [...] ORDERABLES Final Re sult Performing Organization Address City/[facility]/ZIP Co de Phone Number [facility]
[address] [place] [address], * (ABNORMAL) aPTT (04/05/2025 12:18 AM EDT) PTT 33.6(L) 60.0 - 90.0 seconds 04/05/2025 12:53 AM EDT [facility] Blood Venipuncture / Unknown 04/05/2025 12:18 AM EDT 04/05/2025 12:37 AM EDT Narrative [facility] - 04/05/2025 12:53 AM EDT PTT = The equivalent PTT values for the therapeutic range of heparin levels at 0.3 to 0.5 U/ml are 60 to 70 seconds. Una Perla PharmD LAB BLOOD ORDERABLES Final R esult Performing Organization Address [facility] Co de Phone Number [facility]
[address] [place] [address], * (ABNORMAL) Protime-INR (04/05/2025 12:18 AM EDT) Protime 15.9(H) 12.2 - 15.3 Seconds 04/05/2025 12:53 AM EDT [facility] INR 1.19(H) 0.89 - 1.12 04/05/2025 12:53 AM EDT [facility] Blood Venipuncture / Unknown 04/05/2025 12:18 AM EDT 04/05/2025 12:37 AM EDT Una Minda PharmD LAB BLOOD ORDERABLES Final R esult Performing Organization Address City/[facility]/ZIP Co de Phone Number [facility]
[address] [place] [address], [place] [phone] * Heparin Anti-Xa (04/05/2025 12:18 AM EDT) Heparin Anti-Xa (UFH) 0.39 0.30 - 0.70 IU/ml 04/05/2025 12:54 AM EDT [facility] Blood Venipuncture / Unknown 04/05/2025 12:18 AM EDT 04/05/2025 12:37 AM EDT Una Minda PharmD LAB BLOOD ORDERABLES Final R esult [facility]
[address] [place] [address], * MRI Tibia Fibula Right With & [...] MD 04/04/2025 11:00 PM EDT Workstation ID: [id number] Narrative 04/04/2025 11:00 PM EDT MRI TIBIA [...] MD 04/04/2025 11:00 PM EDT Workstation ID: [id number] Leonora Shepherd MD IMG MRI ORDERABLES Final Resu lt * POC Creatinine (04/04/2025 2:49 PM EDT) Pathologist [facility] Creatinine 1.10 0.60 - 1.30 mg/dL 04/07/2025 7:14 PM EDT [facility] Comment:Serial Number: [id number]: [id number] Venous Blood 04/04/2025 2:49 PM EDT 04/07/2025 7:14 PM EDT Jason Álvarez DO POINT OF CARE TEST ORDERABLES Fi nal Result [facility]
[address] [place] [address], * (ABNORMAL) CBC Auto Differential (04/04/2025 2:47 PM EDT) Pathologist [facility] WBC 12.72(H) 3.40 - 10.80 10*3/mm3 04/04/2025 2:56 PM EDT [facility] RBC 5.64 4.14 - 5.80 10*6/mm3 04/04/2025 2:56 PM EDT [facility] Hemoglobin 15.3 13.0 - 17.7 g/dL 04/04/2025 2:56 PM EDT [facility] Hematocrit 47.9 37.5 - 51.0 % 04/04/2025 2:56 PM EDT [facility] MCV 84.9 79.0 - 97.0 fL 04/04/2025 2:56 PM EDT [facility] MCH 27.1 26.6 - 33.0 pg 04/04/2025 2:56 PM EDT [facility] MCHC 31.9 31.5 - 35.7 g/dL 04/04/2025 2:56 PM EDT [facility] RDW 13.1 12.3 - 15.4 % 04/04/2025 2:56 PM EDT [facility] RDW-SD 40.3 37.0 - 54.0 fl 04/04/2025 2:56 PM EDT [facility] MPV 9.4 6.0 - 12.0 fL 04/04/2025 2:56 PM EDT [facility] Platelets 232 140 - 450 10*3/mm3 04/04/2025 2:56 PM EDT [facility] Neutrophil % 74.9 42.7 - 76.0 % 04/04/2025 2:56 PM EDT [facility] Lymphocyte % 13.1(L) 19.6 - 45.3 % 04/04/2025 2:56 PM EDT [facility] Monocyte % 11.2 5.0 - 12.0 % 04/04/2025 2:56 PM EDT [facility] Eosinophil % 0.4 0.3 - 6.2 % 04/04/2025 2:56 PM EDT [facility] Basophil % 0.2 0.0 - 1.5 % 04/04/2025 2:56 PM EDT [facility] Immature Grans % 0.2 0.0 - 0.5 % 04/04/2025 2:56 PM EDT [facility] Neutrophils, Absolute 9.52(H) 1.70 - 7.00 10*3/mm3 04/04/2025 2:56 PM EDT [facility] Lymphocytes, Absolute 1.66 0.70 - 3.10 10*3/mm3 04/04/2025 2:56 PM EDT [facility] Monocytes, Absolute 1.43(H) 0.10 - 0.90 10*3/mm3 04/04/2025 2:56 PM EDT [facility] Eosinophils, Absolute 0.05 0.00 - 0.40 10*3/mm3 04/04/2025 2:56 PM EDT [facility] Basophils, Absolute 0.03 0.00 - 0.20 10*3/mm3 04/04/2025 2:56 PM EDT [facility] Immature Grans, Absolute 0.03 0.00 - 0.05 10*3/mm3 04/04/2025 2:56 PM EDT [facility] nRBC 0.0 0.0 - 0.2 /100 WBC 04/04/2025 2:56 PM EDT [facility] Blood Venipuncture / Unknown 04/04/2025 2:47 PM EDT 04/04/2025 2:52 PM EDT Mario Ortiz [facility] LAB BLOOD ORDERABLES Fin al Result [facility]
[address] [place] [address], * (ABNORMAL) C-reactive Protein (04/04/2025 2:47 PM EDT) C-Reactive Protein 8.57(H) 0.00 - 0.50 mg/dL 04/04/2025 3:26 PM EDT [facility] Blood Venipuncture / Unknown 04/04/2025 2:47 PM EDT 04/04/2025 2:52 PM EDT Mariocathy Crowley LAB BLOOD ORDERABLES Fin al Result [facility]
[address] [place] [address], * (ABNORMAL) Sedimentation Rate (04/04/2025 2:47 PM EDT) Sed Rate 51(H) 0 - 15 mm/hr 04/04/2025 3:06 PM EDT [facility] Blood Venipuncture / Unknown 04/04/2025 2:47 PM EDT 04/04/2025 2:52 PM EDT Mario Harperabbe DO LAB BLOOD ORDERABLES Fin al Result [facility]
[address] [place] [address], * Comprehensive Metabolic Panel (04/04/2025 2:47 PM EDT) Glucose 90 65 - 99 mg/dL 04/04/2025 3:26 PM EDT [facility] BUN 18.3 6.0 - 20.0 mg/dL 04/04/2025 3:26 PM EDT [facility] Creatinine 0.94 0.76 - 1.27 mg/dL 04/04/2025 3:26 PM EDT [facility] Sodium 136 136 - 145 mmol/L 04/04/2025 3:26 PM EDT [facility] Potassium 3.8 3.5 - 5.2 mmol/L 04/04/2025 3:26 PM EDT [facility] Chloride 100 98 - 107 mmol/L 04/04/2025 3:26 PM EDT [facility] CO2 25.3 22.0 - 29.0 mmol/L 04/04/2025 3:26 PM EDT [facility] Calcium 8.6 8.6 - 10.5 mg/dL 04/04/2025 3:26 PM EDT [facility] Total Protein 7.3 6.0 - 8.5 g/dL 04/04/2025 3:26 PM EDT [facility] Albumin 4.1 3.5 - 5.2 g/dL 04/04/2025 3:26 PM EDT [facility] ALT (SGPT) 26 1 - 41 U/L 04/04/2025 3:26 PM EDT [facility] AST (SGOT) 25 1 - 40 U/L 04/04/2025 3:26 PM EDT [facility] Alkaline Phosphatase 106 39 - 117 U/L 04/04/2025 3:26 PM EDT [facility] Total Bilirubin 1.0 0.0 - 1.2 mg/dL 04/04/2025 3:26 PM EDT [facility] Globulin 3.2 gm/dL 04/04/2025 3:26 PM EDT [facility] Comment:Calculated Result A/G Ratio 1.3 g/dL 04/04/2025 3:26 PM EDT [facility] BUN/Creatinine Ratio 19.5 7.0 - 25.0 04/04/2025 3:26 PM EDT [facility] Anion Gap 10.7 5.0 - 15.0 mmol/L 04/04/2025 3:26 PM EDT [facility] eGFR 102.5 >60.0 mL/min/1.7 3 04/04/2025 3:26 PM EDT [facility] Blood Venipuncture / Unknown 04/04/2025 2:47 PM EDT 04/04/2025 2:52 PM EDT Narrative [facility] - 04/04/2025 3:26 PM [...] DO LAB BLOOD ORDERABLES Fin al Result [facility]
[address] [place] [address], documented in this encounter Visit Diagnoses Diagnosis [...] disposal. 0831 (Given - Provider: Amber Salazar, SEW OUT OPERATOR)194 (Given - Provider: Anahy Marcelino, KELL)2129 (Canceled Entry - Provider: Anahy Marcelino RRT - Comment: previously given) 0837 (Given - Provider: Amber Salazar SEW OUT OPERATOR)2006 (Given - Provider: Loree Reese, KELL)213 (Canceled Entry - Provider: Loree Reese RRT) 1037 (Given - Provider: Leonora J April, SEW OUT OPERATOR) cefTRIAXone (ROCEPHIN) 2,000 mg in sodium chloride [...] Continuous Medication Order 04/09/2025 04/10/2025 04/11/2025 heparin [id number] units/250 mL (100 units/mL) in 0.45 % [...] Provider: Shirley Hart, LU)1220 (Given - Provider: Sihrley Hart, RN)1438 (Given - Provider: Shirley Hart, [...] documented as of this encounter Care Teams Patient Financial Representative Relationship Specialty Start Date End Date Provider, [place] [address] PCP - General 05/09/23 documented as of this encounter
--- OUTSIDE RECORDS SUMMARY | 2025-04-08 15:34 | XMS_ITS | Encounter Summary ---
Author Organization [facility] Address [address] [place] [address] Care Team Providers Care Mining Engineer Name Role Phone Provider, No Known Primary Care Provider Unavail able Reason for Visit * Auth/Cert Specialty Diagnoses / Procedures Referred By Bulmaro muniz Referred To Contact Diagnoses Right BKA infection Referral ID Status Reason Start Date Expiration Date Visits Re quested Visits Authorized [id number] 1 1 Encounter Details Date Type Department Care Team (Late st Contact Info) Description 04/08/2025 3:34 PM EDT Anesthesia Event [facility] OR [address] [place] [address] Ulises Hoffman MD [address] [place] [address] Jairo Brooks MD [address] [place] [address] Anesthesia Record Procedure Summary Procedure Name Responsible [...] = 0.6 oz pur e alcohol) [facility] Utilities Answer Date Recorded In the past 12 months has [employer], oil, or water [employer] threatened to shut off services in your [...] or training? Not on file Preferred Language Monegasque 04/07/2025 Sex and Gender Information Value Date Recorded Sex Assigned at Not on file Legal Sex Male 7:30 PM EDT Gender Identity Not on file Sexual Orientation Not on file documented as of this encounter OR Notes * Anesthesia Postprocedure Evaluation - Stan Casillas CRNA - 04/08/2025 4:40 PM EDT Patient: Won Dennis Procedure Summary Date: 04/08/25 Room / Location: [facility] OR [address] [place] [address] [facility] [place] Anesthesia Start: 1533 Anesthesia Stop: [...] ROS Abdominal Substance History - negative use MAILROOM MANAGER negative traffic operator ROS Other Anesthesia Plan ASA 3 general [...] documented as of this encounter Care Teams Mining Engineer Relationship Specialty Start Date End Date Provider, [place] [address] PCP - General 05/09/23 documented as of this encounter
--- OUTSIDE RECORDS SUMMARY | 2025-04-18 10:02 | XMS_ITS | Clinical Summary ---
Author Organization [facility] Address [address] [facility] [address] [place] [address] Phone Care Team Providers Care Crime Lab Analyst Name Role Phone Unavailable Unavailable Conditions or Problems No information available. Medications No information available. Medications Administered No information available. Allergies, Adverse Reactions, Alerts No information available. Results No information available. Plan of Care No information available. Procedures No information available. Vital Signs No information available. Immunizations No information available. Advance Directives No information available.
--- OUTSIDE RECORDS SUMMARY | 2025-04-18 10:03 | XMS_ITS | Clinical Summary ---
Author Organization [facility] Address [address] [place] [address] Care Team Providers Care Technology Sales Representative Name Role Phone Provider, No [...] 1 tablet by mouth Daily. 5 Active hydroCHLOROthi azide 12.5 MG tablet Take 1 tablet by [...] Active oxyCODONE (ROXICODONE) 5 MG immediate release tabletIndicati ons:Right BKA infection Take 1 tablet by mouth Every 4 (Four) Hours As Needed for Moderate Pain. 42 tablet Active acetaminophen (TYLENOL) 500 MG tablet Take 1 tablet by mouth Every 6 (Six) Hours As Needed for Mild Pain, Headache or Fever. Active saccharomyces boulardii (FLORASTOR) 250 MG capsule Take 1 capsule by mouth 2 (Two) Times a Day. 60 capsule Active doxycycline (VIBRAMYICN) 100 MG tablet Take 1 tablet by mouth 2 (Two) Times a Day. 5 04/11/20 Discontinue d(Stop Taking at Discharge) Lactobacillus- Inulin ([facility]) capsule Take 200 mg by mouth Daily. 5 04/11/20 Discontinue d(Stop Taking at Discharge) valsartan (DIOVAN) 40 MG tablet Take 1 tablet by mouth Every Night. 5 04/11/20 Discontinue d(Stop Taking at Discharge) tadalafil 20 MG tablet tablet Take 1 tablet by mouth Every Night. 04/11/20 Discontinue d(Stop Taking at Discharge) DAPTOmycin 800 mg in sodium chloride 0.9 % 50 mLIndications: Skin and Soft Tissue Infection Infuse 800 mg into a venous catheter Daily for 4 doses. 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 Encounters Date Type Department Care Team Description 04/08/2025 3:34 PM EDT Anesthesia Event [facility] [place] [address] [place] [phone] Ulises Hoffman MD Wells, Jeremy B., MD 04/08/2025 2:45 PM EDT - 04/08/2025 4:04 PM EDT Surgery [facility] OR [address] [place] [address] Sushil Dean Jr., MD LEG DEBRIDEMENT AND IRRIGATION 04/07/2025 8:36 PM EDT Anesthesia Event [facility] [place] [address] [place] [address] Luci Alonso DO 04/07/2025 6:00 PM EDT - 04/07/2025 6:52 PM EDT Surgery [facility] OR [address] [place] [address] Sushil Dean Jr., MD LEG DEBRIDEMENT, IRRIGATION 04/04/2025 4:10 PM EDT - 04/11/2025 1:58 PM EDT Hospital Encounter [facility] 5G [address] [place] [address] Mario Crowley DO Anderson, Laurie, MD Gay, Bryce, DO Varney, M Scott, DO Cellulitis of right lower extremity (Primary Dx); [...] Recorded In the past 12 months has [employer], gas, oil, or water [employer] threatened to shut off services in your [...] this topic Medical Devices Implanted Type Area Leadership Recruiter Device Identifier Shelf Expiration Date Model / Serial / Lot Dev Wnd/Cls Contrl Tiss Stratafix Spiral Pls Pds Ct1 0 22cm - [id number] Implanted:Qty: 1 on 04/08/2025 by Sushil Dean Jr., MD at [facility] Implant Right: Leg [employer] 12/07/2025 [id number] / / [id number] Procedures Procedure Name Priority [...] resultswithin the time period is included. Pathologist [facility] WBC 7.87 3.40 - 10.80 10*3/mm3 04/11/2025 4:02 AM EDT [facility] RBC 4.70 4.14 - 5.80 10*6/mm3 04/11/2025 4:02 AM EDT [facility] Hemoglobin 12.8(L) 13.0 - 17.7 g/dL 04/11/2025 4:02 AM EDT [facility] Hematocrit 40.5 37.5 - 51.0 % 04/11/2025 4:02 AM EDT [facility] MCV 86.2 79.0 - 97.0 fL 04/11/2025 4:02 AM EDT [facility] MCH 27.2 26.6 - 33.0 pg 04/11/2025 4:02 AM EDT [facility] MCHC 31.6 31.5 - 35.7 g/dL 04/11/2025 4:02 AM EDT [facility] RDW 12.9 12.3 - 15.4 % 04/11/2025 4:02 AM EDT [facility] RDW-SD 40.5 37.0 - 54.0 fl 04/11/2025 4:02 AM EDT [facility] MPV 9.2 6.0 - 12.0 fL 04/11/2025 4:02 AM EDT [facility] Platelets 267 140 - 450 10*3/mm3 04/11/2025 4:02 AM EDT [facility] Neutrophil % 59.5 42.7 - 76.0 % 04/11/2025 4:02 AM EDT [facility] Lymphocyte % 26.3 19.6 - 45.3 % 04/11/2025 4:02 AM EDT [facility] Monocyte % 9.3 5.0 - 12.0 % 04/11/2025 4:02 AM [facility] Eosinophil % 4.1 0.3 - 6.2 % 04/11/2025 4:02 AM EDT [facility] Basophil % 0.4 0.0 - 1.5 % 04[facility] Immature Grans % 0.4 0.0 - 0.5 % 04/11/2025 4:02 AM [facility] Neutrophils, Absolute 4.69 1.70 - 7.00 10*3/mm3 04/11/2025 4:02 AM [facility] Lymphocytes, Absolute 2.07 0.70 - 3.10 10*3/mm3 04/11/2025 4:02 AM [facility] Monocytes, Absolute 0.73 0.10 - 0.90 10*3/mm3 04/11/2025 4:02 AM [facility] Eosinophils, Absolute 0.32 0.00 - 0.40 10*3/mm3 04/11/2025 4:02 AM [facility] Basophils, Absolute 0.03 0.00 - 0.20 10*3/mm3 04/11/2025 4:02 AM [facility] Immature Grans, Absolute 0.03 0.00 - 0.05 10*3/mm3 04/11/2025 4:02 AM [facility] nRBC 0.0 0.0 - 0.2 /100 WBC 04/11/2025 4:02 AM [facility] Blood Venipuncture / Unknown 04/11/2025 3:40 AM EDT 04/11/2025 3:59 AM EDT Sushil Dean Jr., MD LAB BLOOD ORDERABLES Fi nal Result [facility]
[address] [place] [address], * (ABNORMAL) Comprehensive Metabolic Panel (04/11/2025 3:40 AM EDT) Only the most recent of2 resultswithin the time period is included. Glucose 108(H) 65 - 99 mg/dL 04/11/2025 4:19 AM EDT [facility] BUN 12.5 6.0 - 20.0 mg/dL 04/11/2025 4:19 AM EDT [facility] Creatinine 0.68(L) 0.76 - 1.27 mg/dL 04/11/2025 4:19 AM EDT [facility] Sodium 140 136 - 145 mmol/L 04/11/2025 4:19 AM EDT [facility] Potassium 3.8 3.5 - 5.2 mmol/L 04/11/2025 4:19 AM EDT [facility] Chloride 105 98 - 107 mmol/L 04/11/2025 4:19 AM EDT [facility] CO2 28.2 22.0 - 29.0 mmol/L 04/11/2025 4:19 AM EDT [facility] Calcium 8.2(L) 8.6 - 10.5 mg/dL 04/11/2025 4:19 AM EDT [facility] Total Protein 6.1 6.0 - 8.5 g/dL 04/11/2025 4:19 AM EDT [facility] Albumin 3.1(L) 3.5 - 5.2 g/dL 04/11/2025 4:19 AM EDT [facility] ALT (SGPT) 52(H) 1 - 41 U/L 04/11/2025 4:19 AM EDT [facility] AST (SGOT) 40 1 - 40 U/L 04/11/2025 4:19 AM EDT [facility] Alkaline Phosphatase 99 39 - 117 U/L 04/11/2025 4:19 AM EDT [facility] Total Bilirubin 0.2 0.0 - 1.2 mg/dL 04/11/2025 4:19 AM EDT [facility] Globulin 3.0 gm/dL 04/11/2025 4:19 AM EDT [facility] Comment:Calculated Result A/G Ratio 1.0 g/dL 04/11/2025 4:19 AM EDT [facility] BUN/Creatinine Ratio 18.4 7.0 - 25.0 04/11/2025 4:19 AM EDT [facility] Anion Gap 6.8 5.0 - 15.0 mmol/L 04/11/2025 4:19 AM EDT [facility] eGFR 117.5 >60.0 mL/min/1.7 3 04/11/2025 4:19 AM EDT [facility] Blood Venipuncture / Unknown 04/11/2025 3:40 AM EDT 04/11/2025 3:56 AM EDT [facility] - 04/11/2025 4:19 [...] race as a factor us Rosario Hill [employer] LAB BLOOD ORDERABLES Final Result [facility]
[address] [id number], * Heparin Anti-Xa (04/10/2025 3:46 AM EDT) Only the most recent of13 resultswithin the time period is included. Heparin Anti-Xa (UFH) 0.35 0.30 - 0.70 IU/ml 04/10/2025 4:23 AM EDT [facility] Blood Venipuncture / Unknown 04/10/2025 3:46 AM EDT 04/10/2025 3:53 AM EDT Larisa Hamilton [facility] LAB BLOOD ORDERABLES Final R esult [facility]
[address] [place] [address], * (ABNORMAL) Basic Metabolic Panel (04/10/2025 3:46 AM EDT) Only the most recent of6 resultswithin the time period is included. [facility] Glucose 125(H) 65 - 99 mg/dL 04/10/2025 4:20 AM EDT [facility] BUN 15.9 6.0 - 20.0 mg/dL 04/10/2025 4:20 AM EDT [facility] Creatinine 0.77 0.76 - 1.27 mg/dL 04/10/2025 4:20 AM EDT [facility] Sodium 137 136 - 145 mmol/L 04/10/2025 4:20 AM EDT [facility] Potassium 3.9 3.5 - 5.2 mmol/L 04/10/2025 4:20 AM EDT [facility] Chloride 102 98 - 107 mmol/L 04/10/2025 4:20 AM EDT [facility] CO2 26.9 22.0 - 29.0 mmol/L 04/10/2025 4:20 AM EDT [facility] Calcium 7.9(L) 8.6 - 10.5 mg/dL 04/10/2025 4:20 AM EDT [facility] BUN/Creatinine Ratio 20.6 7.0 - 25.0 04/10/2025 4:20 AM EDT [facility] Anion Gap 8.1 5.0 - 15.0 mmol/L 04/10/2025 4:20 AM EDT [facility] eGFR 113.2 >60.0 mL/min/1.7 3 04/10/2025 4:20 AM EDT [facility] Blood Venipuncture / Unknown 04/10/2025 3:46 AM EDT 04/10/2025 3:52 AM EDT Narrative [facility] - 04/10/2025 4:20 AM [...] DO LAB BLOOD ORDERABLES Final Resul t [facility]
[address] [place] [address], * Wound Culture - Swab, Leg, Right (04/08/2025 3:40 PM EDT) Only the most recent of3 resultswithin the time period is included. Wound Culture No growth at 3 days ALIZA 04/11/2025 10:40 AM EDT [facility] Gram Stain Few (2+) WBCs seen 04/11/2025 10:40 AM EDT [facility] Gram Stain No organisms seen 04/11/2025 10:40 AM EDT [facility] Swab Structure of right lower limb / Unknown 04/08/2025 3:40 PM EDT 04/08/2025 8:05 PM EDT Sushil Dean Jr., MD MICROBIOLOGY - GENERAL ORDERABLES Final Result Performing Organization Address City/[facility]/ZIP Co de Phone Number [facility]
[address] [place] [address], [facility]
[address] [place] [address], [place] [phone] * Anaerobic Culture - Swab, Leg, Right (04/08/2025 3:40 PM EDT) Only the most recent of4 resultswithin the time period is included. Anaerobic Culture No anaerobes isolated at 5 days ALIZA 04/13/2025 7:24 AM EDT [facility] Swab Structure of right lower limb / Unknown 04/08/2025 3:40 PM EDT 04/08/2025 8:05 PM EDT Sushil Dean Jr., MD MICROBIOLOGY - GENERAL ORDERABLES Final Result Performing Organization Address [facility] Co de Phone Number [facility]
[address] [place] [address], * Scan Slide (04/08/2025 8:41 AM EDT) RBC Morphology Normal Normal 04/08/2025 11:02 AM EDT [facility] WBC Morphology Normal Normal 04/08/2025 11:02 AM EDT [facility] Platelet Estimate Adequate Normal 04/08/2025 11:02 AM EDT [facility] Clumped Platelets Present None Seen 04/08/2025 11:02 AM EDT [facility] Blood Venipuncture / Unknown 04/08/2025 8:41 AM EDT 04/08/2025 9:10 AM EDT Una Perla PharmD LAB BLOOD ORDERABLES Final R esult Performing Organization Address City/[facility]/ZIP Co de Phone Number [facility]
[address] [place] [address], [place] [phone] * FL C Arm During Surgery (04/07/2025 [...] (1+) WBCs seen 04/11/2025 10:36 AM EDT [facility] Gram Stain No organisms seen 04/11/2025 10:36 AM EDT [facility] Tissue Structure of right lower limb / Unknown 04/07/2025 9:13 PM EDT 04/08/2025 4:54 AM EDT us Sushil Dean Jr., MD MICROBIOLOGY - GENERAL ORDERABLES Final Result [facility]
[address] [place] [address], [facility]
[address] [place] [address], * BH AN ETT AIRWAY (04/07/2025 8:44 [...] [place] 04/07/2025 9:58 AM EDT Workstation ID: [id number] Narrative 04/07/2025 9:58 AM EDT MRI TIBIA [...] [place] 04/07/2025 9:58 AM EDT Workstation ID: [id number] Sushil Dean Jr., MD IMG MRI ORDERABLES Mary Beth l Result * Potassium (04/06/2025 7:16 PM EDT) Potassium 4.0 3.5 - 5.2 mmol/L 04/06/2025 7:53 PM EDT [facility] Blood Venipuncture / Unknown 04/06/2025 7:16 PM EDT 04/06/2025 7:35 PM EDT Jason Álvarez DO LAB BLOOD ORDERABLES Final Resul t Performing Organization Address City/[facility]/ZIP Co de Phone Number [facility]
[address] [place] [address], * CK (04/05/2025 12:15 PM EDT) Creatine Kinase 140 20 - 200 U/L 04/05/2025 1:31 PM EDT [facility] Blood Venipuncture / Unknown 04/05/2025 12:15 PM EDT 04/05/2025 1:03 PM EDT Carlton Mead MD LAB BLOOD ORDERABLES Final R esult Performing Organization Address City/[facility]/ZIP Co de Phone Number [facility]
[address] [place] [address], * (ABNORMAL) aPTT (04/05/2025 3:54 AM EDT) Only the most recent of2 resultswithin the time period is included. PTT 35.3(L) 60.0 - 90.0 seconds 04/05/2025 4:31 AM EDT [facility] Blood Venipuncture / Unknown 04/05/2025 3:54 AM EDT 04/05/2025 4:15 AM EDT Narrative [facility] - 04/05/2025 4:31 AM EDT PTT = The equivalent PTT values for the therapeutic range of heparin levels at 0.3 to 0.5 U/ml are 60 to 70 seconds. [employer] LAB BLOOD ORDERABLES Final R esult Performing Organization Address City/[facility]/ZIP Co de Phone Number [facility]
[address] [place] [address], * (ABNORMAL) Protime-INR (04/05/2025 12:18 AM EDT) Pathologist [facility] Protime 15.9(H) 12.2 - 15.3 Seconds 04/05/2025 12:53 AM EDT [facility] INR 1.19(H) 0.89 - 1.12 04/05/2025 12:53 AM EDT [facility] Blood Venipuncture / Unknown 04/05/2025 12:18 AM EDT 04/05/2025 12:37 AM EDT [employer] PharmD LAB BLOOD ORDERABLES Final R esult Performing Organization Address City/[facility]/ZIP Co de Phone Number [facility]
[address] [place] [address], * POC Creatinine (04/04/2025 2:49 PM EDT) Pathologist [facility] Creatinine 1.10 0.60 - 1.30 mg/dL 04/07/2025 7:14 PM EDT [facility] Comment:Serial Number: [id number] 7Operator: [id number] Venous Blood 04/04/2025 2:49 PM EDT 04/07/2025 7:14 PM EDT Jason Álvarez DO POINT OF CARE TEST ORDERABLES Fi nal Result Performing Organization Address [facility] Co de Phone Number [facility]
[address] [place] [address], * (ABNORMAL) Sedimentation Rate (04/04/2025 2:47 PM EDT) Sed Rate 51(H) 0 - 15 mm/hr 04/04/2025 3:06 PM EDT [facility] Blood Venipuncture / Unknown 04/04/2025 2:47 PM EDT 04/04/2025 2:52 PM EDT Mario Crowley LAB BLOOD ORDERABLES Fin al Result Performing Organization Address [facility]/[place] de Phone Number [facility]
[address] [place] [address], * (ABNORMAL) C-reactive Protein (04/04/2025 2:47 PM EDT) C-Reactive Protein 8.57(H) 0.00 - 0.50 mg/dL 04/04/2025 3:26 PM EDT [facility] Blood Venipuncture / Unknown 04/04/2025 2:47 PM EDT 04/04/2025 2:52 PM EDT Mario Crowley DO LAB BLOOD ORDERABLES Fin al Result Performing Organization Address [facility] Co de Phone Number [facility]
[address] [place] [address], from Last 3 Months Additional Health Concerns [...] Of Support Discussed With: Patient Care Teams Technology Sales Representative Relationship Specialty Start Date End Date Provider, No Known [facility] [place] [address] PCP - General 05/09/23
--- OUTSIDE RECORDS SUMMARY | 2025-04-18 10:03 | XMS_ITS | Encounter Summary ---
Author Organization Healthcare Address [address] [place] [address] Care Team Providers Care Bisque Cleaner Name Role Phone Unavailable Primary Care Provider Unavailabl e Encounter Details Date Type Department Care Team (Late st Contact Info) Description 10/19/2022 Lab Requisition [facility] [address] [place] [address] Sushil Dean MD [address] [place] [address] Encounter for general adult medical examination without [...] by MALDI tof mass spectrometry using the Sprucel[employer] database and is for research use only. The organism value for this result has been updated. These results have been appended to the previously preliminary verified report. Bone Specimen from bone / Unknown 10/19/2022 5:17 PM EDT 10/19/2022 9:49 PM EDT Sushil Dean MD LAB MICROBIOLOGY - GENERAL O RDERABLES Final Result Performing Organization Address [facility] de Phone Number [facility] [address] [place] [phone] * Bone Culture and Gram Stain (10/19/2022 5:17 PM EDT) Culture No growth at day 4 2022 8:14 AM EDT [facility] Gram Stain Result Few Polymorphonuclear leukocytes 10/23/2022 8:14 AM EDT [facility] Gram Stain Result No organisms seen 10/23/2022 8:14 AM EDT [facility] Bone Specimen from bone / Unknown 10/19/2022 5:17 PM EDT 10/19/2022 9:49 PM EDT Sushil Dean MD LAB MICROBIOLOGY - GENERAL O RDERAADDI Final Result Performing Organization Address [facility] Phone Number [facility] [address] [place] [phone] documented in this encounter Visit Diagnoses Diagnosis Encounter for general adult medical examination without abnormal findings documented in this encounter
--- OUTSIDE RECORDS SUMMARY | 2025-04-18 10:03 | XMS_ITS | Encounter Summary ---
Author Organization Healthcare Address [address] [place] [address] Care Team Providers Care Utility Gelatin Maker Name Role Phone Unavailable Primary Care Provider Unavailabl e Encounter Details Date Type Department Care Team (Late st Contact Info) Description 10/01/2022 Lab Requisition [facility] [address] [place] [address] Sushil Dean MD [address] [facility]. [address] [place] [address] Encounter for general adult medical examination without [...] has been identified using the FDA Approved [employer].ioyper [place] System The organism value for this [...] 10/04/2022 2:17 PM EDT Refer to culture [id number] FOR SUSCEPTIBILITIES ON NEELIMA ALBICANS us Sushil Dean MD LAB MICROBIOLOGY - GENERAL O RDERABLES Final Result [facility] [address] [id number] documented in this encounter Visit Diagnoses Diagnosis Encounter for general adult medical examination without abnormal findings documented in this encounter
--- OUTSIDE RECORDS SUMMARY | 2025-04-18 10:03 | XMS_ITS | Patient Health Record ---
[facility] [address] [facility] [address] [place] [id number] Care Team Providers Care Vehicle Damage Appraiser Name Role Phone Zeeshan Salazar Primary Care [...] W/U Status Risk Notes Problem Essential hypertension (94627711) HTN [Hypertension] (401.9) Active confirmed appears resolved Problem Hypothyroidism (78116948) Hypothyroidism NOS (244.9) Active confirmed Problem Hyperlipidemia (96857027) Hyperlipidemia (272.4) Active confirmed Problem Constipation (30251144) Constipation, unspecified constipation type (K59.00) Active confirmed Problem History of pulmonary embolism on long-term anticoagulation therapy (80160199218951079 ) Hx pulmonary embolism (Z86.711) Active confirmed Problem Long-term current use of anticoagulant (926863462) Current use of terminal supervisor anticoagulation (Z79.01) Active confirmed Problem Adjustment disorder with anxious mood (00056132) Adjustment disorder with anxious mood (F43.22) Active confirmed Problem History of pulmonary embolus (677369074) History of pulmonary embolus (PE) (Z86.711) Active confirmed Problem Methicillin resistant Staphylococcus aureus infection (disorder) (222507239) Infection of wound due to methicillin resistant Staphylococcus aureus (MRSA) (A49.02) Active confirmed Problem Arthritis of knee (276800605) Arthritis of knee (M17.10) Active confirmed Problem Amputated below knee (348216842) 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
--- OUTSIDE RECORDS SUMMARY | 2025-04-18 10:03 | XMS_ITS | Encounter Summary ---
Author Organization Healthcare Address [address] [place] [address] Care Team Providers Care Turret Press Operator Name Role Phone Unavailable Primary Care Provider Unavailabl e Encounter Details Date Type Department Care Team (Late st Contact Info) Description 08/12/2022 Lab Requisition [facility] [address] [place] [address] Sushil Dean MD [address] [place] [address] Encounter for general adult medical examination without [...] has been identified using the FDA Approved Exit41er [place] System The organism value for this [...] O ERIC Final Result Performing Organization Address City/[facility] de Phone Number [facility]ARE [facility] [address] [place] [address] * Bone Culture and Gram Stain (08/12/2022 [...] O RDERABLES Final Result Performing Organization Address City/[facility] de Phone Number [facility] [address] [place] [address] documented in this encounter Visit Diagnoses Diagnosis Encounter for general adult medical examination without abnormal findings documented in this encounter
--- OUTSIDE RECORDS SUMMARY | 2025-04-18 10:03 | XMS_ITS | Clinical Summary ---
Author Organization Healthcare Address [address] [place] [address] Care Team Providers Care Barrel Lathe Operator Inside Name Role Phone Unavailable Primary Care Provider [...]
--- OUTSIDE RECORDS SUMMARY | 2025-04-18 10:03 | XMS_ITS | Encounter Summary ---
Author Organization Healthcare Address [address] [place] [address] Care Team Providers Care Deicer Repairer Name Role Phone Unavailable Primary Care Provider Unavailabl e Encounter Details Date Type Department Care Team (Late st Contact Info) Description 07/20/2022 Lab Requisition [facility] [address] [place] [address] Sushil Dean MD [address] [place] [address] Encounter for general adult medical examination without [...] at day 4 07/27/2022 11:32 AM EST [facility] Bone Specimen from bone / Unknown 07/20/2022 1:36 PM EST 07/20/2022 5:52 PM EST us Sushil Dean MD LAB MICROBIOLOGY - GENERAL O RDERABLES Final Result Performing Organization Address City/[facility] Co de Phone Number [facility]ALTH[facility]ARE [facility] [address] [place] [address] * Bone Culture and Gram Stain (07/20/2022 1:36 PM EST) Culture No growth at day 4 2022 9:16 AM EST [facility] Gram Stain Result Rare Polymorphonuclear leukocytes 07/24/2022 9:16 AM EST [facility] Gram Stain Result No organisms seen 07/24/2022 9:16 AM EST [facility] Bone Specimen from bone / Unknown 07/20/2022 1:36 PM EST 07/20/2022 5:52 PM EST us Sushil Dean MD LAB MICROBIOLOGY - GENERAL O RDERABLES Final Result Performing Organization Address City/[facility] Co de Phone Number [facility]ALTH[facility]ARE [facility] [address] [place] [address] documented in this encounter Visit Diagnoses Diagnosis Encounter for general adult medical examination without abnormal findings documented in this encounter
--- OUTSIDE RECORDS SUMMARY | 2025-04-18 10:03 | XMS_ITS | Encounter Summary ---
Author Organization [facility] Address [address] [place] [address] Care Team Providers Care Ecdis N Navigation Operator Name Role Phone Unavailable Primary Care Provider Unavailabl e Encounter Details Date Type Department Care Team (Late st Contact Info) Description 10/03/2022 Lab Requisition [facility] [address] [place] [address] Dalila Cox MD [address] [place], [place] [id number] Encounter for general adult medical examination without [...] Culture Neelima albicans(A) 10/05/2022 11:58 AM EDT [facility] Comment: This result was determined by MALDI tof Mass spectrometry. This assay was developed and its performance characteristics determined by [facility] as appropriate for clinical purposes. [...] Edited Result - Final [facility] [address] [place] [address] documented in this encounter Visit Diagnoses Diagnosis Encounter for general adult medical examination without abnormal findings documented in this encounter
--- OUTSIDE RECORDS SUMMARY | 2025-04-18 10:03 | XMS_ITS | Encounter Summary ---
Author Organization Healthcare Address [address] [place] [address] Care Team Providers Care Rural Electrification Engineer Name Role Phone Unavailable Primary Care Provider Unavailabl e Encounter Details Date Type Department Care Team (Late st Contact Info) Description 05/13/2023 Lab Requisition [facility] [address] [place] [address] Sushil Dean MD [address] [facility] [place] [address] Encounter for general adult medical examination without [...] O RDERABLES Final Result Performing Organization Address [facility] Co de Phone Number [facility] [address] [place] [address] * Anaerobic Culture (05/13/2023 9:17 AM EDT) Culture No growth at day 4 05/20/2023 10:35 AM EST [facility] Bone 05/13/2023 9:17 AM EDT 05/13/2023 1:25 PM EDT us Sushil Dean MD LAB MICROBIOLOGY - GENERAL O RDERABLES Final Result Performing Organization Address [facility] de Phone Number [facility] [address] [place] [address] * Bone Culture and Gram Stain (05/13/2023 [...] O RDERABLES Final Result Performing Organization Address [facility] de Phone Number [facility] [address] [place] [address] documented in this encounter Visit Diagnoses Diagnosis Encounter for general adult medical examination without abnormal findings documented in this encounter
--- OUTSIDE RECORDS SUMMARY | 2025-04-18 10:03 | XMS_ITS | Encounter Summary ---
Author Organization Healthcare Address [address] [place] [address] Care Team Providers Care Senior Oracle Dba Name Role Phone Unavailable Primary Care Provider Unavailabl e Encounter Details Date Type Department Care Team (Late st Contact Info) Description 05/17/2023 Lab Requisition [facility] [address] [place] [address] Sushil Dean MD [address] [facility] [address] [place] [address] Encounter for general adult medical examination without [...] O RDERABLES Final Result Performing Organization Address City/[facility] Co de Phone Number [facility] [address] [place] [address] * Bone Culture and Gram Stain (05/17/2023 [...] O RDERABLES Final Result Performing Organization Address [facility] Co de Phone Number [facility] [address] [place] [address] documented in this encounter Visit Diagnoses Diagnosis Encounter for general adult medical examination without abnormal findings documented in this encounter
--- OUTSIDE RECORDS SUMMARY | 2025-04-18 10:03 | XMS_ITS | Encounter Summary ---
Author Organization Healthcare Address [address] [place] [address] Care Team Providers Care Renovation Plant Supervisor Name Role Phone Unavailable Primary Care Provider Unavailabl e Encounter Details Date Type Department Care Team (Late st Contact Info) Description 07/20/2022 Lab Requisition [facility] [address] [place] [address] Sushil Dean MD [address] [place] [address] Encounter for general adult medical examination without [...]
--- OUTSIDE RECORDS SUMMARY | 2025-04-18 10:03 | XMS_ITS | Encounter Summary ---
Author Organization [facility] Address [address] [place] [address] Care Team Providers Care Licensed Real Estate Broker Name Role Phone Provider, No Known Primary [...] 2:25 PM EDT Cherri Grimm RN * [place] Suicide Severity Rating Scale (Screener/Recent Self-Report) Question [...] documented as of this encounter Care Teams Licensed Real Estate Broker Relationship Specialty Start Date End Date Provider, No Known [facility] [place] [address] PCP - General 05/09/23 documented as of this encounter
[2025-04-18 10:25] VITALS: BP 104/71; PULSE 77; RESP 17; O2SAT 92
[2025-04-18 11:05] VITALS: BP 108/66; PULSE 71; RESP 16
== END 2025-04-18 23:59 | disposition home or self-care (01) ==
LOC: INF 09:58
PROVIDERS: PCP Nurse Practitioner Family; Visit Provider Internal Medicine Infectious Disease
DX: L03.115 Cellulitis of right lower limb (principal); L02.415 Cutaneous abscess of right lower limb; Z89.511 Acquired absence of right leg below knee; D68.2 Hereditary deficiency of other clotting factors; I10 Essential (primary) hypertension; E78.5 Hyperlipidemia, unspecified; F39 Unspecified mood [affective] disorder
CPT/HCPCS: 96365; J0878

== ENCOUNTER 2025-04-19 09:21 | Outpatient (CLI) | payer MEDICARE, SELFPAY ==
--- OUTSIDE RECORDS SUMMARY | 2023-10-25 12:15 | XMS_ITS ---
[facility] Organization [facility] Address [address] [place] [address] YVON Sykes [id number] Care Team Providers Care Cadence Specialists Name Role Phone Zeeshan Salazar Primary Care Provider [phone] Macario Burkett [phone] Allergies No Known Allergies REASON FOR VISIT check up BP Encounters Encounter Location Date Provider Diagnosis [facility] [address] [place] [address] Y[place]ON Sykes [id number] 10/25/2023 Macario Burkett Plan Of Treatment No Information Progress Notes * MITCHELLWonDOB: [birth year] (44 yo M)Acc No.[id number]:10/25/2023 Progress Notes Patient: Won SPANN Provider: Colleen Burkett M.D. :1980 A ge:43 Y S ex:Male Date:10/25/2023 Address:[address] [place] [address] Onel THACKER [id number] Pcp:Zeeshan Salazar Subjective: * Chief Complaints: * [...] alive, hypertension. M aternal Grand Mother: HBP, [place]. Brother with HBP. * Social History: C URRENT TOBACCO USE S moking Status: Patient does NOT smoke. C affeine: no. Alcohol: No. * Allergies: N .K.D.A. Objective: * Vitals: Assessment: Plan: * Treatment: * Images: Billing Information: * Visit Code: * Procedure Codes: * Electronic signature of Micaela Burkett MD on 04/19/2025 at 09:24 AM EDT Sign off status: Pending * Provider: Colleen Burkett M.D. Date: 0 10/25/2023 Generated for Nany jorgensen/Elaine/Lisbethitting on: 1 09:24 AM EDT
--- OUTSIDE RECORDS SUMMARY | 2023-12-12 05:00 | XMS_ITS ---
Author Organization Ayaka Address 1210 [facility] 36 [facility] 2C [place] [phone] Care Team Providers Care Medical Director Occupational Health Name Role Phone Zeeshan Salazar Primary Care Provider Macario Burkett [phone] REASON FOR VISIT 6 Month Check Up Encounters Encounter Location Date Provider Diagnosis [place] 1210 [facility] [address] [place] [phone] 12/12/2023 Macario Burkett Plan Of Treatment No Information Progress Notes * Won MEDRANO ZeeshanDOB: [birth year] (44 yo M)Acc No.[id number]:12/12/2023 Progress Notes Patient: Won SPANN Provider: Colleen Burkett M.D. :1980 A ge:43 Y S ex:Male Date:12/12/2023 Address:[address] [place] [address] [id number] Pcp:Zeeshan Salazar Subjective: * Chief Complaints: * 1 . 6 Month Check Up. * Medical History: Objective: * Vitals: Assessment: Plan: * Treatment: * Images: Billing Information: * Visit Code: * Procedure Codes: * Electronic signature of Micaela Burkett MD on 04/19/2025 at 09:24 AM EDT Sign off status: Pending * Provider: Colleen Burkett M.D. Date: 12/12/2023 Generated for Nany jorgensen/Elaine/Pro on: 1 09:24 AM EDT
--- OUTSIDE RECORDS SUMMARY | 2025-04-04 16:10 | XMS_ITS | Encounter Summary ---
Author Organization [facility] Address [address] [place] [address] Care Team Providers [employer] Paraprofessional Name Role Phone Provider, No Known Primary Care Provider Unavail able Reason for Visit * Reason Comments Leg Swelling * Auth/Cert Specialty Diagnoses / Procedures Referred By Contlevy t Referred To Contact Diagnoses Right BKA infection Referral ID Status Reason Start Date Expiration Date Visits Re quested Visits Authorized [id number] 1 1 Encounter Details Date Type Department Care Team (Late st Contact Info) Description 04/04/2025 4:10 PM EDT - 04/11/2025 1:58 PM EDT Hospital Encounter [address] [place] [address] Mario Crowley, [address] [place] [address] Leonora Shepherd MD [address] [address] Jason Álvarez DO [address] [address] Jadyn Richardson DO [address] [address] Cellulitis of right lower extremity (Primary Dx); [...] the past 12 months has th e [employer], gas, oil, or water company threatened to [...] or training? Not on file Preferred Language Togolese 04/07/2025 Sex and Gender Information Value Date [...] 2:25 PM EDT Cherri Grimm RN * [place] Suicide Severity Rating Scale (Screener/Recent Self-Report) Question [...] from the original note were not included. [facility] DISCHARGE SUMMARY Patient Name: Won [...] Date/Time Wound Culture - Swab, Leg, Right [[id number]] (Abnormal) (Susceptibility) Collected: 04/07/252106 Lab Status: Final [...] Units Date/Time FL C Arm During Surgery [[id number]] Resulted: 04/07/252137 Updated: 04/07/252137 Narrative: This procedure was auto-finalized with no dictation required. MRI Tibia Fibula Right With & Without Contrast [[id number]] Collected: 04/07/25 0938 Updated: 04/07/25 1001 Narrative: [...] Buenrostro 04/07/2025 9:58 AM EDT Workstation ID: [id number] MRI Tibia Fibula Right With & Without Contrast [[id number]] Collected: 04/04/252256 Updated: 04/04/252302 Narrative: MRI TIBIA [...] represent a small area of phlegmonous change ([id number] image 10) measuring approximately 1.6 cm which [...] MD 04/04/2025 11:00 PM EDT Workstation ID: [id number] Pending Labs Order Current Status Fungus Culture [...] FLOMAX 1 capsule, Nightly Stop These Medications [facility] capsule doxycycline 100 MG tablet Commonly [...] on Discharge: 48 minutes Electronically signed by Rosraio Hill APRN, 04/11/25, 11:12 AM EDT. Cosigned by Jadyn Richardson DO at 04/11/2025 3:42 PM EDT Associated attestation - Jadyn Richardson DO - 04/11/2025 3:42 PM EDT I have reviewed this documentation and agree. * Omar Zavala RN - 04/10/2025 4:29 PM EDT Images from the original note were not included. Won Dennis (44 y.o. Male) Date of 1980 Social Security Number [id number] [place] [address] Latter-Day Unknown Marital Status Unknown Admission Date 04/04/2025 Admission Type Emergency Admitting Provider Jadyn Richardson DO Attending Provider Jadyn Richardson DO Department, Room/Bed [address], S565/1 Discharge Date Discharge Disposition Discharge [...] Group [place] [id number] Payor Plan Address Payor Plan Phone Number Payor Plan Fax Number Effective Dates [employer] [address] [address] 08/10/2023 - None Entered [place] [address] Subscriber Name Subscriber Date Member ID WON DENNIS 1980 [id number] Emergency Contacts Machine Lead Burner (Rel.) Home Phone Work Phone Mobile Phone Avril Dennis (Spouse) -- -- [phone] LewRobert (Relative) -- -- [phone] [facility] [address] Patient: ROOM: [facility] Won Dennis [address] [facility] [address] : 1980 SSN: [id number] Sex: M PCP: Provider, No Known Emergency Contact Information Name Relation Home Work Mobile Avril Dennis Spouse [phone] Other Contacts Name Relation Home Work Mobile Robert Hackett Relative [phone] INSURANCE PA[employer] # SUBSCRIBER ID Primary: Secondary: MEDICARE [employer] [id number] Admitting Diagnosis: 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] Order Date: Apr 09, 2025 Case Management Guide Setter Consult (Order ID: [id number]) Diagnosis: Priority: Routine Expected Date: Expiration Date: [...] INFECTIOUS DISEASE Progress Note Won Dennis 1980 [id number] Date of Consult: 04/10/2025 Admission Date: 04/04/2025 [...] which prompted him to seek treatment at [facility]. He is known to Dr. [...] Jr., MD, 20 mg at 04/09/25906 heparin 61725 units/250 mL (100 units/mL) in 0.45 % [...] infusion 40 mL, 40 mL, Intravenous, PRAlyce Clark Mark J, MD tamsulosin (FLOMAX) 24 hr [...] Units Date/Time FL C Arm During Surgery [[id number]] Resulted: 04/07/252137 Updated: 04/07/252137 Narrative: This procedure was auto-finalized with no dictation required. MRI Tibia Fibula Right With & Without Contrast [[id number]] Collected: 04/07/25 0938 Updated: 04/07/25 1001 Narrative: [...] Chitra 04/07/2025 9:58 AM EDT Workstation ID: [id number] Impression: Recurrent Right BKA stump abscess/cellulitis- this [...] discussed his disposition with the pharmacist at [facility] today. I will sign off Outpatient orders: 1. Outpatient intravenous antibiotic therapy: Daptomycin 800 mg IV daily to be supplied by [facility] 2. Home health to perform [...] transitions of care for this complex patient. Cralton Mead MD 04/10/2025 07:38 Rosario Tan APRN Nurse Practitioner Hospitalist Progress Notes Signed Date of Service: 04/10/251323 Creation Time: 04/10/251323 Signed Expand All Collapse All [facility] PROGRESS NOTE Patient Name: Won [...] Date/Time Wound Culture - Swab, Leg, Right [[id number]] (Abnormal) (Susceptibility) Collected: 04/07/252106 Lab Status: Final [...] Row Name 04/06/25 1143 Sit-Stand Transfer Sit-Stand Austin (Transfers) modified independence -LM Comment, (Sit-Stand Transfer) Pt stood from recliner. Not holding onto walker, pt able to pull his pants up while balancing on his one leg. -LM Row Name 04/06/25 1143 Gait/Stairs (Locomotion) Austin Level (Gait) modified independence -LM Distance in [...] Nurse Physical Therapy Education Title: PT OT PORTAINER OPERATOR Therapies (Done) Topic: Physical Therapy (Done) [...] Description Service Date Service Provider Modifiers Qty [id number] PT EVAL LOW COMPLEXITY 3 04/06/2025 Susan [...] as of this encounter Progress Notes * Sergio RosarioDAVID smith - 04/10/2025 1:24 PM EDT Images from the original note were not included. [facility] PROGRESS NOTE Patient Name: Won [...] Date/Time Wound Culture - Swab, Leg, Right [[id number]] (Abnormal) (Susceptibility) Collected: 04/07/252106 Lab Status: Final [...] With: Patient Rosario DAVID Hill 04/10/25 * Carlton Mead MD - 04/10/2025 7:38 AM EDT Images from the original note were not included. INFECTIOUS DISEASE Progress Note Won Dennis 1980 [id number] Date of Consult: 04/10/2025 Admission Date: 04/04/2025 Requesting Provider: Evaluating Physician: Dr. Mable Mead MD. 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 He c/o swelling with erythema for several days after a new prosthesis was fitted, which prompted him to seek treatment at [facility]. He is known to Dr. [...] Surgeon: Sushil Dean Jr., MD; Location: [facility];Service: Orthopedics; Laterality: Right; History reviewed. No [...] Jr., MD, 20 mg at 04/09/25906 heparin 45103 units/250 mL (100 units/mL) in 0.45 % [...] 15 mg, 15 mg, Intravenous, Once, Monisha Jones, DAVID Magnesium Standard Dose Replacement - Follow Nurse [...] Intravenous Every 24 Hours 04/05/25199904/09/25 2144 04/05/25 120 DAPTOmycin (CUBICIN) 800 mg in [...] Units Date/Time FL C Arm During Surgery [[id number]] Resulted: 04/07/252137 Updated: 04/07/252137 Narrative: This procedure was auto-finalized with no dictation required. MRI Tibia Fibula Right With & Without Contrast [[id number]] Collected: 04/07/25937 Updated: 04/07/25 100 Narrative: MRI [...] Chitra 04/07/2025 9:58 AM EDT Workstation ID: [id number] Impression: Recurrent Right BKA stump abscess/cellulitis- this [...] discussed his disposition with the pharmacist at [facility] today. I will sign off Outpatient orders: 1. Outpatient intravenous antibiotic therapy: Daptomycin 800 mg IV daily to be supplied by [facility] 2. Home health to perform [...] Carlton Mead MD 04/10/2025 07:38 EDT * HamiltonLarisa clark, [facility] - 04/10/2025 7:17 AM EDT Pharmacy [...] from the original note were not included. [facility] PROGRESS NOTE Patient Name: Won [...] Date/Time Wound Culture - Swab, Leg, Right [[id number]] (Abnormal) Collected: 04/07/252106 Lab Status: Preliminary result Specimen: Swab from Leg, Right Updated: 04/09/25 0903 Wound Culture Light growth (2+) Staphylococcus aureus, [...] Jason Álvarez DO 04/09/25 * Larisa Hamilton [facility] - 04/09/2025 11:36 AM EDT Pharmacy [...] INFECTIOUS DISEASE Progress Note Won Dennis 1980 [id number] Date of Consult: 04/09/2025 Admission Date: 04/04/2025 [...] which prompted him to seek treatment at [facility]. He is known to Dr. [...] Surgeon: Sushil Dean Jr., MD; Location: [facility]; Service: Orthopedics; Laterality: Right; PLACEMENT OF WOUND VAC Right 04/07/2025 Procedure: WOUND VACUUM ASSISTED CLOSURE; Surgeon: Sushil Dean Jr., MD; Location: [facility]; Service: Orthopedics; Laterality: Right; History reviewed. [...] MD, 20 mg at 04/08/25 0800 heparin 94003 units/250 mL (100 units/mL) in 0.45 % [...] dose vancomycin Status: Discontinued Ordering Provider: Leonora Sehpherd MD Not Applicable Continuous PRN 04/04/25200404/05/25120604/04/25 194 [...] Units Date/Time FL C Arm During Surgery [[id number]] Resulted: 04/07/252137 Updated: 04/07/252137 Narrative: This procedure was auto-finalized with no dictation required. MRI Tibia Fibula Right With & Without Contrast [[id number]] Collected: 04/07/25 0938 Updated: 04/07/25 1001 Narrative: [...] Buenrostro 04/07/2025 9:58 AM EDT Workstation ID: [id number] Impression: Recurrent Right BKA stump abscess/cellulitis- this [...] from the original note were not included. [facility] PROGRESS NOTE Patient Name: Won [...] Buenrostro 04/07/2025 9:58 AM EDT Workstation ID: [id number] I have personally reviewed the therapy plans: [...] Jason Álvarez DO 04/08/25 * Larisa Hamilton [facility] - 04/08/2025 11:48 AM EDT Pharmacy [...] 0.30 11 -- -- [address] [facility] 04/05 1215 0.17 11 1999 +3 14 2100 RN Pump checked 04/05 2043 0.38 14 -- -- [address] [facility] 04/06 0530 0.25 14 -- +2 16 1200 RN Mary 04/06 1236 0.24 16 -- +2 18 1999 RN Pump checked 04/06 1916 0.33 18 -- -- [address] [facility] 04/07 0215 0.38 18 -- -- [address] [facility] 04/07 0910 0.30 18 -- -- 18 0600 04/08 RN; pump verified 04/08 0841 0.33 18 -- -- [address] [facility] 04/08 1053 -- 18 -- -18 HELD TBD Procedure planned for today, follow for restart after procedure Larisa Hamilton RPH 04/08/2025 11:47 EDT * Carlton Mead MD - 04/08/2025 7:37 AM EDT Images from the original note were not included. INFECTIOUS DISEASE Progress Note Won Dennis 1980 [id number] Date of Consult: 04/08/2025 Admission Date: 04/04/2025 [...] which prompted him to seek treatment at [facility]. He is known to Dr. [...] Sushil Dean Jr., MD; Location: [facility]; Service: Orthopedics; Laterality: Right; PLACEMENT OF WOUND VAC Right 04/07/2025 Procedure: WOUND VACUUM ASSISTED CLOSURE; Surgeon: Sushil Dean Jr., MD; Location: [facility]; Service: Orthopedics; Laterality: Right; History [...] tablet 20 mg, 20 mg, Oral, Daily, Ssuhil Dean Jr., MD, 20 mg at 04/07/25950 heparin 29868 units/250 mL (100 units/mL) in 0.45 % [...] Sushil Dean Jr., MD, 10mg at 04/06/25 2102 Pharmacy to Dose Heparin, , Not Applicable, [...] Ordered Dose/Rate Route Frequency Start Stop 04/07/25 164 vancomycin IVPB 2000 mg in 0.9% Sodium [...] Units Date/Time FL C Arm During Surgery [[id number]] Resulted: 04/07/252137 Updated: 04/07/252137 Narrative: This procedure was auto-finalized with no dictation required. MRI Tibia Fibula Right With & Without Contrast [[id number]] Collected: 04/07/25937 Updated: 04/07/25 100 Narrative: MRI [...] Buenrostro 04/07/2025 9:58 AM EDT Workstation ID: [id number] Impression: 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 (Treated by ID in [place] Dr. Harris). Dr. Torres treated him with [...] from the original note were not included. [facility] PROGRESS NOTE Patient Name: Won [...] Chitra 04/07/2025 9:58 AM EDT Workstation ID: [id number] I have personally reviewed the therapy plans: [...] Jason Álvarez DO 04/07/25 * Larisa Hamilton [facility] - 04/07/2025 11:56 AM EDT Pharmacy [...] INFECTIOUS DISEASE Progress Note Won Dennis 1980 [id number] Date of Consult: 04/07/2025 Admission Date: 04/04/2025 [...] which prompted him to seek treatment at [facility]. He is known to Dr. [...] MD, 20 mg at 04/06/25 09 heparin 67083 units/250 mL (100 units/mL) in 0.45 % NaCl infusion, 18 Units/kg/hr, Intravenous, Titrated, Cherri Beatty [facility], Last Rate: 24.1 mL/hr at 04/07/25217, 18 Units/kg/hr at 04/07/25217 hydroCHLOROthiazide tablet 12.5 mg, 12.5 mg, Oral, Daily, Leonora Shepherd MD, 12.5 mg at HYDROmorphone (DILAUDID) injection 0.5 mg, 0.5 mg, Intravenous, Q2H PRN, Leonora Shepherd MD, 0.5 mg at 04/05/25 0036 Magnesium Standard Dose Replacement - Follow Nurse / BPA Driven Protocol, , Not Applicable, PRLili, Leonora Shepherd MD nitroglycerin (NITROSTAT) SL tablet [...] over 165 Minutes Intravenous Once 04/04/25195804/04/25 2307 04/04/251942 cefTRIAXone (ROCEPHIN) 2,000 mg in sodium [...] With & Without Contrast - In process [[id number]] Resulted: 04/07/25828 Updated: 04/07/25828 This result has not been signed. Information might be incomplete. MRI Tibia Fibula Right With & Without Contrast [[id number]] Collected: 04/04/252256 Updated: 04/04/252302 Narrative: MRI TIBIA [...] MD 04/04/2025 11:00 PM EDT Workstation ID: [id number] Impression: 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 (Treated by ID in [place] Dr. Harris). Dr. Torres treated him with [...] mg Daily 04/05/2025 -- Route: Oral heparin 31566 units/250 mL (100 units/mL) in 0.45 % [...] -- Admin Instructions: Open Order & Select [facility] Electrolyte Replacement Protocol Algorithm to [...] -- Admin Instructions: Open Order & Select [facility] Electrolyte Replacement Protocol Algorithm to [...] -- Admin Instructions: Open Order & Select [facility] Electrolyte Replacement Protocol Algorithm to [...] Dean Jr, MD 04/07/25 06:07 EDT * Rogerio Cherri, [facility] - 04/06/2025 1:47 PM EDT Pharmacy [...] from the original note were not included. [facility] PROGRESS NOTE Patient Name: Won [...] MD 04/04/2025 11:00 PM EDT Workstation ID: [id number] I have personally reviewed the therapy plans: [...] AM-PAC 6 Clicks Score (PT): 23 (04/06/25 1337) CODE STATUS: Code Status and Medical Interventions: CPR (Attempt to Resuscitate); Full Support Ordered at: 04/04/252047 Code Status (Patient has no pulse and is not breathing): CPR (Attempt to Resuscitate) Medical Interventions (Patient has pulse or is breathing): Full Support Level Of Support Discussed With: Patient Jason DO Preeti 04/06/25 * Sushil Dean Jr., MD - [...] mg Daily 04/05/2025 -- Route: Oral heparin 63311 units/250 mL (100 units/mL) in 0.45 % [...] -- Admin Instructions: Open Order & Select [facility] Electrolyte Replacement Protocol Algorithm to [...] -- Admin Instructions: Open Order & Select [facility] Electrolyte Replacement Protocol Algorithm to [...] -- Admin Instructions: Open Order & Select [facility] Electrolyte Replacement Protocol Algorithm to [...] INFECTIOUS DISEASE follow up. Won Dennis 1980 [id number] Date of Consult: 04/06/2025 Admission Date: 04/04/2025 [...] which prompted him to seek treatment at [facility]. He is known to Dr. [...] Q12H, Ayah Valentin APRN, 1 Application at 04/06/25 0859 DAPTOmycin (CUBICIN) [...] MD, 20 mg at 04/06/25 0900 heparin 85321 units/250 mL (100 units/mL) in 0.45 % NaCl infusion, 18 Units/kg/hr, Intravenous, Titrated, Cherri Beatty, [facility], Last Rate: 24.1 mL/hr at 04/06/25 [...] , Not Applicable, Continuous PRN, Una Perla, PharmRoyer Phosphorus Replacement - Follow Nurse / BPA [...] Q24H, Leonora Shepherd MD, 40 mg at 04/06/25858 Antibiotics: Anti-Infectives (From admission, onward) Ordered Dose/Rate [...] kg over 165 Minutes Intravenous Once 04/04/25195804/04/25 23004/04/251942 cefTRIAXone (ROCEPHIN) 2,000 mg in sodium chloride [...] Tibia Fibula Right With & Without Contrast [[id number]] Collected: 04/04/252256 Updated: 04/04/252302 Narrative: MRI TIBIA [...] represent a small area of phlegmonous change ([id number] image 10) measuring approximately 1.6 cm which [...] MD 04/04/2025 11:00 PM EDT Workstation ID: [id number] Impression: 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 (Treated by ID in [place] Dr. Harris). Dr. Torres treated him with [...] MD 04/06/2025 16:00 EDT * Cherri Beatty, [facility] - 04/05/2025 3:01 PM EDT Pharmacy [...] from the original note were not included. [facility] PROGRESS NOTE Patient Name: Won [...] MD 04/04/2025 11:00 PM EDT Workstation ID: [id number] I have personally reviewed the therapy plans: [...] from the original note were not included. [facility] HISTORY AND PHYSICAL Patient Name: [...] MD 04/04/2025 11:00 PM EDT Workstation ID: [id number] Assessment & Plan Assessment & Plan Won [...] [facility], [facility] [address] [place] [address] Orthopedic Consult Patient: Won Dennis Date of Admission: 04/04/2025 4:10 PM Date of : 1980 Attending Physician: Jason Álvarez DO Consulting Physician: Sushil Dena Jr, MD Chief Complaint: 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 male admitted to [facility] with 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]. He has [...] was evaluated in the emergency department in [place], was discharged with instructions for follow-up. [...] tablet by mouth Daily. 04/03/2025 Morning Lactobacillus-Inulin ([facility]) capsule Take 200 mg by mouth [...] MD 04/04/2025 11:00 PM EDT Workstation ID: [id number] Assessment: Right BKA infection 44-year-old male with [...] DISEASE CONSULT/INITIAL HOSPITAL VISIT Won Dennis 1980 [id number] Date of Consult: 04/05/2025 Admission Date: 04/04/2025 [...] which prompted him to seek treatment at [facility]. He is known to Dr. Dean. He denies recent antibiotics. He has an intolerance to keflex, he became severely nauseated with infusion. MRI completed yesterday demonstrates areaof hypoatttenuation with small area of phlegmonous change. No osteomyelitis. No knee joint effusion. Denies n/v, or fever. No other symptoms. WBC count 12.7 on admission with sed rate of 51, CRP 8.57. Creatinine normal. No cultures obtained here. Known MRSA from previous wound 10/31/25. HDS, on Heparin gtt. Currently [place] [...] Leonora Shepherd MD, 40 mg at 04/04/25 3669 sennosides-docusate (PERICOLACE) 8.6-50 MG per tablet 2 [...] MD, 20 mg at 04/05/25 0916 heparin 92400 units/250 mL (100 units/mL) in 0.45 % NaCl infusion, 11 Units/kg/hr, Intravenous, Titrated, Una Perla, ToñoD, Last Rate: 14.74 mL/hr at 04/05/25 0113, 11 Units/kg/hr at 04/05/25 011 hydroCHLOROthiazide tablet 12.5 mg, 12.5 mg, Oral, Daily, Leonora Shepherd MD, 12.5 mg at 916 HYDROmorphone (DILAUDID) injection 0.5 mg, 0.5 mg, Intravenous, Q2H PRN, Leonora Shepherd MD, 0.5 mg at 04/05/25 0036 Magnesium Standard Dose Replacement - Follow Nurse / BPA Driven Protocol, , Not Applicable, PRNJoao Laurie, MD nitroglycerin (NITROSTAT) SL tablet 0.4 mg, 0.4 mg, Sublingual, Q5 Min PRN, Leonora Shepherd MD oxybutynin XL (DITROPAN-XL) 24 hr tablet 10 mg, 10 mg, Oral, Nightly, Leonora Shepherd MD, 10 mg at 04/04/25 4926 Pharmacy to Dose Heparin, , Not Applicable, Continuous PRMinda Clark Cydney, PharmD Pharmacy to dose vancomycin, , Not [...] Q24H, Leonora Shepherd MD, 40 mg at 04/05/25914 vancomycin IVPB 1500 mg in 0.9% NaCl [...] Leonora Shepherd MD Not Applicable Continuous PRN 09200404/09/25200304/04/251942 vancomycin 2750 mg/500 mL 0.9% NS IVPB [...] Tibia Fibula Right With & Without Contrast [[id number]] Collected: 04/04/252256 Updated: 04/04/252302 Narrative: MRI TIBIA [...] represent a small area of phlegmonous change ([id number] image 10) measuring approximately 1.6 cm which [...] MD 04/04/2025 11:00 PM EDT Workstation ID: [id number] Impression: 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 (Treated by ID in [place] Dr. Harris). Dr. Torres treated him with [...] Documentation Taken 04/09/2025 0000 by Bob Rosenberg, LU Safety Promotion/Fall Prevention: assistive device/personal items within [...] infection POSTOP DIAGNOSIS: Same. PROCEDURE: Right Right 28033: Secondary closure below-knee amputation SURGEON: Sushil Dean MD OPERATIVE TEAM: Group Sales Manager: Susi Grullon RN Scrub Person: Mary Paredes Scrub Person Extra: Hortencia Toribio Other: Katt Gotti RN; Charis Neville RN ANESTHETIST: Anesthesiologist: Ulises Hoffman MD REVENUE CYCLE MANAGER: Stan Casillas CRNA Student Nurse Professional Bass Fisher: Karol Albert SRNA ANESTHESIA: Choice ESTIMATED BLOOD [...] CULTURE (Canceled) Sushil Dean Jr., MD 04/08/25 2341 Description: RIGHT LEG DEEP WOUND FOR CULTURE [...] EDT [facility], [facility] [address] [address] OPERATIVE REPORT PATIENT NAME: Won Dennis DATE OF : 1980 PREOP DIAGNOSIS: Right Right below knee amputation stump infection POSTOP DIAGNOSIS: Same. PROCEDURE: Right Right 83010: Incision and drainage of surgical site infection 07269: Debridement of skin, subcutaneous tissue, muscle 47838: Wound vacuum-assisted closure SURGEON: Sushil Dean MD OPERATIVE TEAM: Group Sales Manager: Anum Sanchez RN Scrub Person: Bo Toribio Devion [employer] PILOT: Anesthesiologist: Luci Alonso DO ANESTHESIA: General ESTIMATED [...] ago swellling of the area. seen at [facility] yesterday for CT and US, [...] 4 mg, Intravenous, Q30 Min PRN, Mario Crowlye DO, 4 mg at 04/04/25 1750 [COMPLETED] [...] this chart in the absence of a ear flap binder. No orders to display RADIOLOGY: [x] Radiologist's [...] 04/11/2025 1:30 PM EDT Continued Stay Note [facility] Patient Name: Won Dennis Today's Date: 04/11/2025 Admit Date: 04/04/2025 Plan: Home with outpatient infusion. Discharge Plan Row Name 04/11/25 1155 Plan Plan Home with outpatient infusion. Final Discharge Disposition Code 01 - home or self-care Final Note Patient discharging today. He is discharging home with outpatient infusion at [facility]. He has an appointment with [facility] at 8:00 am tomorrow. They will do PICC line dressing changes. CM has spoke with Dena at [facility] today multiple times to get setup due [...] with KELLEE and given themhis Medicare number [id number], she sent it to Admission. DEBRA spoke [...] changes and lab work. DEBRA called Dena [facility] Outpatient infusion center they can accept patient and start him. He is known for their facility. The Facility will need to run it through his insurance first. DEBRA faxed the orders over to [facility] at [phone]. CM will follow up with them tomorrow at [facility] to make sure they received [...] 04/09/2025 2:51 PM EDT Continued Stay Note Nahma Patient Name: Won Dennis Today's Date: 04/09/2025 Admit Date: 04/04/2025 Plan: Home Discharge Plan Row Name 04/09/25 1311 Plan Plan Home Patient/Family in Agreement with Plan yes Plan Comments CM spoke with patient at bedside today. Wheelchair from [employer] is at bedside. Patient getting PICC line [...] note were not included. 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 CM will order wheelchair through [employer]. He is not current with home health services. PCP is Dr. Jordan. Insurance is [employer] [place]. Patient discharge plan is home with priavte transport. CM will follow for any discharge needs. Final Discharge Disposition Code 01 - home or self-care Continued Care and Services - Admitted Since 04/04/2025 No active coordination exists. Demographic Summary Row Name 04/07/25 1143 General Information Arrived From hospital Preferred Language Togolese Functional Status Row Name 04/07/25 1143 Functional [...] CBC Auto Differential (04/11/2025 3:40 AM EDT) [facility] WBC 7.87 3.40 - 10.80 10*3/mm3 04/11/2025 4:02 AM EDT [facility] RBC 4.70 4.14 - 5.80 10*6/mm3 04/11/2025 4:02 AM EDT [facility] Hemoglobin 12.8(L) 13.0 - 17.7 g/dL 04/11/2025 4:02 AM EDT [facility] Hematocrit 40.5 37.5 - 51.0 % 04/11[facility]25 [facility] MCV 86.2 79.0 - 97.0 fL 04/11/2025 4:02 [facility] MCH 27.2 26.6 - 33.0 pg 04/11/2025 4:02 AM [facility] MCHC 31.6 31.5 - 35.7 g/dL 04/11/2025 4:02 AM [facility] RDW 12.9 12.3 - 15.4 % 04/11/2025 4:02 AM [facility] RDW-SD 40.5 37.0 - 54.0 fl 04/11/2025 4:02 AM [facility] MPV 9.2 6.0 - 12.0 fL 04/11/2025 4:02 AM [facility] Platelets 267 140 - 450 10*3/mm3 04/11/2025 4:02 AM [facility] Neutrophil % 59.5 42.7 - 76.0 % 04/11/2025 4:02 AM [facility] Lymphocyte % 26.3 19.6 - 45.3 % 04/11/2025 4:02 AM [facility] Monocyte % 9.3 5.0 - 12.0 % 04/11/2025 4:02 AM [facility] Eosinophil % 4.1 0.3 - 6.2 % 04/11/2025 4:[facility] Basophil % 0.4 0.0 - 1.5 % 04/11/2025 4:02 [facility] Immature Grans % 0.4 0.0 - 0.5 % 04/11/2025 4:02 [facility] Neutrophils, Absolute 4.69 1.70 - 7.00 10*3/mm3 04/11/2025 4:02 [facility] Lymphocytes, Absolute 2.07 0.70 - 3.10 10*3/mm3 04/11/2025 4:02 AM EDT [facility] Monocytes, Absolute 0.73 0.10 - 0.90 10*3/mm3 04/11/2025 4:02 AM EDT [facility] Eosinophils, Absolute 0.32 0.00 - 0.40 10*3/mm3 04/11/2025 4:02 AM EDT [facility] Basophils, Absolute 0.03 0.00 - 0.20 10*3/mm3 04/11/2025 4:02 AM EDT [facility] Immature Grans, Absolute 0.03 0.00 - 0.05 10*3/mm3 04/11/2025 4:02 AM EDT [facility] nRBC 0.0 0.0 - 0.2 /100 WBC 04/11/2025 4:02 AM EDT [facility] Blood Venipuncture / Unknown 04/11/2025 3:40 AM EDT 04/11/2025 3:59 AM EDT us Sushil Dean Jr., MD LAB BLOOD ORDERABLES Fi nal Result [facility]
[address] [place] [address], * (ABNORMAL) Comprehensive Metabolic Panel (04/11/2025 3:40 AM EDT) Glucose 108(H) 65 - 99 mg/dL 04/11/2025 4:19 AM EDT [facility] BUN 12.5 6.0 - 20.0 mg/dL 04/11/2025 4:19 AM EDT [facility] Creatinine 0.68(L) 0.76 - 1.27 mg/dL 04/11/2025 4:19 AM EDT [facility] Sodium 140 136 - 145 mmol/L 04/11/2025 4:19 AM EDT [facility] Potassium 3.8 3.5 - 5.2 mmol/L 04/11/2025 4:19 AM EDT [facility] Chloride 105 98 - 107 mmol/L 04/11/2025 4:19 AM [facility] CO2 28.2 22.0 - 29.0 mmol/L 04/11/2025 4:19 AM [facility] Calcium 8.2(L) 8.6 - 10.5 mg/dL 04/11/2025 4:19 AM [facility] Total Protein 6.1 6.0 - 8.5 g/dL 04/11/2025 4:19 AM [facility] Albumin 3.1(L) 3.5 - 5.2 g/dL 04/11/2025 4:19 AM [facility] ALT (SGPT) 52(H) 1 - 41 U/L 04/11/2025 4:19 AM [facility] AST (SGOT) 40 1 - 40 U/L 04/11/2025 4:19 AM [facility] Alkaline Phosphatase 99 39 - 117 U/L 04/11/2025 4:19 AM [facility] Total Bilirubin 0.2 0.0 - 1.2 mg/dL 04/11/2025 4:19 AM [facility] Globulin 3.0 gm/dL 04/11/2025 4:19 AM [facility] Comment:Calculated Result A/G Ratio 1.0 g/dL 04/11/2025 4:19 AM [facility] BUN/Creatinine Ratio 18.4 7.0 - 25.0 04/11/2025 4:19 AM [facility] Anion Gap 6.8 5.0 - 15.0 mmol/L 04/11/2025 4:19 AM [facility] eGFR 117.5 >60.0 mL/min/1.7 3 04/11/2025 4:19 AM [facility] Blood Venipuncture / Unknown 04/11/2025 3:40 AM EDT 04/11/2025 3:56 AM EDT [facility] - 04/11/2025 4:19 AM EDT GFR [...] not include race as a factor Rosario Hill REPAIRER ART OBJECTS LAB BLOOD ORDERABLES Final Result [facility]
[address] [place] [address], * (ABNORMAL) CBC Auto Differential (04/10/2025 3:46 AM EDT) WBC 9.60 3.40 - 10.80 10*3/mm3 04/10/2025 3:56 AM EDT [facility] RBC 4.67 4.14 - 5.80 10*6/mm3 04/10/2025 3:56 AM EDT [facility] Hemoglobin 12.9(L) 13.0 - 17.7 g/dL 04/10/2025 3:56 AM EDT [facility] Hematocrit 40.1 37.5 - 51.0 % 04/10/2025 3:56 AM EDT [facility] MCV 85.9 79.0 - 97.0 fL 04/10/2025 3:56 AM EDT [facility] MCH 27.6 26.6 - 33.0 pg 04/10/2025 3:56 AM EDT [facility] MCHC 32.2 31.5 - 35.7 g/dL 04/10/2025 3:56 AM EDT [facility] RDW 12.9 12.3 - 15.4 % 04/10/2025 3:56 AM EDT [facility] RDW-SD 40.5 37.0 - 54.0 fl 04/10/2025 3:56 AM [facility] MPV 9.5 6.0 - 12.0 fL 04/10/2025 3:56 AM [facility] Platelets 227 140 - 450 10*3/mm3 04/10/2025 3:56 AM [facility] Neutrophil % 59.1 42.7 - 76.0 % 04/10/2025 3:56 AM [facility] Lymphocyte % 29.0 19.6 - 45.3 % 04/10/2025 3:56 AM [facility] Monocyte % 8.1 5.0 - 12.0 % 04/10/2025 3:56 AM [facility] Eosinophil % 3.2 0.3 - 6.2 % 04/10/2025 3:56 AM [facility] Basophil % 0.4 0.0 - 1.5 % 04/10/2025 3:56 AM [facility] Immature Grans % 0.2 0.0 - 0.5 % 04/10/2025 3:56 AM [facility] Neutrophils, Absolute 5.67 1.70 - 7.00 10*3/mm3 04/10/2025 3:56 AM [facility] Lymphocytes, Absolute 2.78 0.70 - 3.10 10*3/mm3 04/10/2025 3:56 AM [facility] Monocytes, Absolute 0.78 0.10 - 0.90 10*3/mm3 04/10/2025 3:56 AM [facility] Eosinophils, Absolute 0.31 0.00 - 0.40 10*3/mm3 04/10/2025 3:56 AM [facility] Basophils, Absolute 0.04 0.00 - 0.20 10*3/mm3 04/10/2025 3:56 AM [facility] Immature Grans, Absolute 0.02 0.00 - 0.05 10*3/mm3 04/10/2025 3:56 AM EDT [facility] nRBC 0.0 0.0 - 0.2 /100 WBC 04/10/2025 3:56 AM EDT [facility] Blood Venipuncture / Unknown 04/10/2025 3:46 AM EDT 04/10/2025 3:53 AM EDT Jason Álvarez DO LAB BLOOD ORDERABLES Final Resul t [facility]
[address] [place] [address], * (ABNORMAL) Basic Metabolic Panel (04/10/2025 3:46 AM EDT) Glucose 125(H) 65 - 99 mg/dL 04/10/2025 4:20 AM EDT [facility] BUN 15.9 6.0 - 20.0 mg/dL 04/10/2025 4:20 AM EDT [facility] Creatinine 0.77 0.76 - 1.27 mg/dL 04/10/2025 4:20 AM EDT [facility] Sodium 137 136 - 145 mmol/L 04/10/2025 4:20 AM EDT [facility] Potassium 3.9 3.5 - 5.2 mmol/L 04/10/2025 4:20 AM EDT [facility] Chloride 102 98 - 107 mmol/L 04/10/2025 4:20 AM EDT [facility] CO2 26.9 22.0 - 29.0 mmol/L 04/10/2025 4:20 AM EDT [facility] Calcium 7.9(L) 8.6 - 10.5 mg/dL 04/10/2025 4:20 AM EDT [facility] BUN/Creatinine Ratio 20.6 7.0 - 25.0 04/10/2025 4:20 AM EDT [facility] Anion Gap 8.1 5.0 - 15.0 mmol/L 04/10/2025 4:20 AM EDT [facility] eGFR 113.2 >60.0 mL/min/1.7 3 04/10/2025 4:20 AM EDT [facility] Blood Venipuncture / Unknown 04/10/2025 3:46 AM EDT 04/10/2025 3:52 AM EDT Narrative [facility] - 04/10/2025 4:20 AM EDT GFR [...] DO LAB BLOOD ORDERABLES Final Resul t [facility]
[address] [place] [address], * Heparin Anti-Xa (04/10/2025 3:46 AM EDT) [facility] Heparin Anti-Xa (UFH) 0.35 0.30 - 0.70 IU/ml 04/10/2025 4:23 AM EDT [facility] Blood Venipuncture / Unknown 04/10/2025 3:46 AM EDT 04/10/2025 3:53 AM EDT Larisa Hamilton [facility] LAB BLOOD ORDERABLES Final R esult [facility]
[address] [place] [address], * Heparin Anti-Xa (04/09/2025 10:05 AM EDT) [facility] Signature Heparin Anti-Xa (UFH) 0.36 0.30 - 0.70 IU/ml 04/09/2025 11:12 AM EDT [facility] Blood Venipuncture / Unknown 04/09/2025 10:05 AM EDT 04/09/2025 10:47 AM EDT Larisa Hamilton [facility] LAB BLOOD ORDERABLES Final R esult [facility]
[address] [place] [address], * (ABNORMAL) CBC Auto Differential (04/09/2025 4:18 AM EDT) Pathologist [facility] WBC 11.00(H) 3.40 - 10.80 10*3/mm3 04/09/2025 4:50 AM EDT [facility] RBC 4.70 4.14 - 5.80 10*6/mm3 04/09/2025 4:50 AM EDT [facility] Hemoglobin 13.0 13.0 - 17.7 g/dL 04/09/2025 4:50 AM EDT [facility] Hematocrit 40.4 37.5 - 51.0 % 04/09/2025 4:50 AM EDT [facility] MCV 86.0 79.0 - 97.0 fL 04/09/2025 4:50 AM EDT [facility] MCH 27.7 26.6 - 33.0 pg 04/09/2025 4:50 AM EDT [facility] MCHC 32.2 31.5 - 35.7 g/dL 04/09/2025 4:50 AM EDT [facility] RDW 12.8 12.3 - 15.4 % 04/09/2025 4:50 AM EDT [facility] RDW-SD 39.9 37.0 - 54.0 fl 04/09/2025 4:50 AM EDT [facility] MPV 10.0 6.0 - 12.0 fL 04/09/2025 4:50 AM [facility] Platelets 211 140 - 450 10*3/mm3 04/09/2025 4:50 [facility] Neutrophil % 74.8 42.7 - 76.0 % 04/09/2025 4:50 AM [facility] Lymphocyte % 15.4(L) 19.6 - 45.3 % 04/09/2025 4:50 [facility] Monocyte % 8.5 5.0 - 12.0 % 04/09/2025 4:50 AM [facility] Eosinophil % 0.6 0.3 - 6.2 % 04/09/2025 4:50 AM [facility] Basophil % 0.4 0.0 - 1.5 % 04/09/2025 4:50 AM [facility] Immature Grans % 0.3 0.0 - 0.5 % 04/09/2025 4:50 AM [facility] Neutrophils, Absolute 8.23(H) 1.70 - 7.00 10*3/mm3 04/09/2025 4:50 AM [facility] Lymphocytes, Absolute 1.69 0.70 - 3.10 10*3/mm3 04/09/2025 4:50 AM [facility] Monocytes, Absolute 0.94(H) 0.10 - 0.90 10*3/mm3 04/09/2025 4:50 AM [facility] Eosinophils, Absolute 0.07 0.00 - 0.40 10*3/mm3 04/09/2025 4:50 AM [facility] Basophils, Absolute 0.04 0.00 - 0.20 10*3/mm3 04/09/2025 4:50 AM [facility] Immature Grans, Absolute 0.03 0.00 - 0.05 10*3/mm3 04/09/2025 4:50 AM [facility] nRBC 0.0 0.0 - 0.2 /100 WBC 04/09/2025 4:50 AM EDT [facility] Blood Venipuncture / Unknown 04/09/2025 4:18 AM EDT 04/09/2025 4:31 AM EDT Sushil Dean Jr., MD LAB BLOOD ORDERABLES Fi nal Result Performing Organization Address City/[facility]/ZIP Co de Phone Number [facility]
[address] [place] [address], * Heparin Anti-Xa (04/09/2025 4:18 AM EDT) Heparin Anti-Xa (UFH) 0.41 0.30 - 0.70 IU/ml 04/09/2025 4:53 AM EDT [facility] Blood Venipuncture / Unknown 04/09/2025 4:18 AM EDT 04/09/2025 4:31 AM EDT Una LundbergD LAB BLOOD ORDERABLES Final R esult [facility]
[address] [place] [address], * (ABNORMAL) Basic Metabolic Panel (04/09/2025 4:18 AM EDT) Glucose 147(H) 65 - 99 mg/dL 04/09/2025 5:33 AM EDT [facility] BUN 23.0(H) 6.0 - 20.0 mg/dL 04/09/2025 5:33 AM EDT [facility] Creatinine 1.15 0.76 - 1.27 mg/dL 04/09/2025 5:33 AM EDT [facility] Sodium 135(L) 136 - 145 mmol/L 04/09/2025 5:33 AM EDT [facility] Potassium 4.2 3.5 - 5.2 mmol/L 04/09/2025 5:33 AM EDT [facility] Chloride 100 98 - 107 mmol/L 04/09/2025 5:33 AM EDT [facility] CO2 26.0 22.0 - 29.0 mmol/L 04/09/2025 5:33 AM EDT [facility] Calcium 8.2(L) 8.6 - 10.5 mg/dL 04/09/2025 5:33 AM EDT [facility] BUN/Creatinine Ratio 20.0 7.0 - 25.0 04/09/2025 5:33 AM EDT [facility] Anion Gap 9.0 5.0 - 15.0 mmol/L 04/09/2025 5:33 AM EDT [facility] eGFR 80.5 >60.0 mL/min/1.7 3 04/09/2025 5:33 AM EDT [facility] Blood Venipuncture / Unknown 04/09/2025 4:18 AM EDT 04/09/2025 4:29 AM EDT [facility] - 04/09/2025 5:33 AM EDT GFR [...] MD LAB BLOOD ORDERABLES Fi nal Result [facility]
[address] [place] [address], * Wound Culture - Swab, Leg, Right (04/08/2025 3:40 PM EDT) Wound Culture No growth at 3 days ALIZA 04/11/2025 10:40 AM EDT [facility] Gram Stain Few (2+) WBCs seen 04/11/2025 10:40 AM EDT [facility] Gram Stain No organisms seen 04/11/2025 10:40 AM EDT [facility] Swab Structure of right lower limb / Unknown 04/08/2025 3:40 PM EDT 04/08/2025 8:05 PM EDT Sushil Dean Jr., MD MICROBIOLOGY - GENERAL ORDERABLES Final Result Performing Organization Address City/[facility]/ZIP Co de Phone Number [facility]
[address] [place] [address], [facility]
[address] [place] [address], [place] [phone] * Anaerobic Culture - Swab, Leg, Right (04/08/2025 3:40 PM EDT) Anaerobic Culture No anaerobes isolated at 5 days ALIZA 04/13/2025 7:24 AM EDT [facility] Swab Structure of right lower limb / Unknown 04/08/2025 3:40 PM EDT 04/08/2025 8:05 PM EDT us Sushil Dean Jr., MD MICROBIOLOGY - GENERAL ORDERABLES Final Result [facility]
[address] [place] [address], [place] [phone] * Scan Slide (04/08/2025 8:41 AM EDT) RBC Morphology Normal Normal 04/08/2025 11:02 AM EDT [facility] WBC Morphology Normal Normal 04/08/2025 11:02 AM EDT [facility] Platelet Estimate Adequate Normal 04/08/2025 11:02 AM EDT [facility] Clumped Platelets Present None Seen 04/08/2025 11:02 AM EDT [facility] Blood Venipuncture / Unknown 04/08/2025 8:41 AM EDT 04/08/2025 9:10 AM EDT Una Minda PharmD LAB BLOOD ORDERABLES Final R esult [facility]
[address] [place] [address], * (ABNORMAL) CBC Auto Differential (04/08/2025 8:41 AM EDT) WBC 10.07 3.40 - 10.80 10*3/mm3 04/08/2025 11:02 AM EDT [facility] RBC 5.01 4.14 - 5.80 10*6/mm3 04/08/2025 11:02 AM EDT [facility] Hemoglobin 14.0 13.0 - 17.7 g/dL 04/08/2025 11:02 AM EDT [facility] Hematocrit 42.7 37.5 - 51.0 % 04/08/2025 11:02 AM EDT [facility] MCV 85.2 79.0 - 97.0 fL 04/08/2025 11:02 AM EDT [facility] MCH 27.9 26.6 - 33.0 pg 04/08/2025 11:02 AM EDT [facility] MCHC 32.8 31.5 - 35.7 g/dL 04/08/2025 11:02 AM EDT [facility] RDW 12.6 12.3 - 15.4 % 04/08/2025 11:02 AM EDT [facility] RDW-SD 38.9 37.0 - 54.0 fl 04/08/2025 11:02 AM EDT [facility] MPV 11.0 6.0 - 12.0 fL 04/08/2025 11:02 AM EDT [facility] Platelets 118(L) 140 - 450 10*3/mm3 04/08/2025 11:02 AM [facility] Neutrophil % 85.1(H) 42.7 - 76.0 % 04/08/2025 11:02 AM [facility] Lymphocyte % 9.3(L) 19.6 - 45.3 % 04/08/2025 11:02 AM [facility] Monocyte % 4.6(L) 5.0 - 12.0 % 04/08/2025 11:02 AM [facility] Eosinophil % 0.3 0.3 - 6.2 % 04/08/2025 11:02 AM [facility] Basophil % 0.2 0.0 - 1.5 % 04/08/2025 11:02 AM [facility] Immature Grans % 0.5 0.0 - 0.5 % 04/08/2025 11:02 AM [facility] Neutrophils, Absolute 8.57(H) 1.70 - 7.00 10*3/mm3 04/08/2025 11:02 AM [facility] Lymphocytes, Absolute 0.94 0.70 - 3.10 10*3/mm3 04/08/2025 11:02 AM [facility] Monocytes, Absolute 0.46 0.10 - 0.90 10*3/mm3 04/08/2025 11:02 AM [facility] Eosinophils, Absolute 0.03 0.00 - 0.40 10*3/mm3 04/08/2025 11:02 AM [facility] Basophils, Absolute 0.02 0.00 - 0.20 10*3/mm3 04/08/2025 11:02 AM [facility] Immature Grans, Absolute 0.05 0.00 - 0.05 10*3/mm3 04/08/2025 11:02 AM [facility] nRBC 0.0 0.0 - 0.2 /100 WBC 04/08/2025 11:02 AM [facility] Blood Venipuncture / Unknown 04/08/2025 8:41 AM EDT 04/08/2025 9:10 AM EDT Una Perla PharmD LAB BLOOD ORDERABLES Final R esult [facility]
[address] [place] [address], * (ABNORMAL) Basic Metabolic Panel (04/08/2025 8:41 AM EDT) Pathologist [facility] Glucose 125(H) 65 - 99 mg/dL 04/08/2025 9:51 AM EDT [facility] BUN 13.2 6.0 - 20.0 mg/dL 04/08/2025 9:51 AM EDT [facility] Creatinine 0.69(L) 0.76 - 1.27 mg/dL 04/08/2025 9:51 AM EDT [facility] Sodium 136 136 - 145 mmol/L 04/08/2025 9:51 AM EDT [facility] Potassium 4.6 3.5 - 5.2 mmol/L 04/08/2025 9:51 AM EDT [facility] Chloride 102 98 - 107 mmol/L 04/08/2025 9:51 AM EDT [facility] CO2 23.5 22.0 - 29.0 mmol/L 04/08/2025 9:51 AM EDT [facility] Calcium 8.4(L) 8.6 - 10.5 mg/dL 04/08/2025 9:51 AM EDT [facility] BUN/Creatinine Ratio 19.1 7.0 - 25.0 04/08/2025 9:51 AM EDT [facility] Anion Gap 10.5 5.0 - 15.0 mmol/L 04/08/2025 9:51 AM EDT [facility] eGFR 117.0 >60.0 mL/min/1.7 3 04/08/2025 9:51 AM EDT [facility] Blood Venipuncture / Unknown 04/08/2025 8:41 AM EDT 04/08/2025 9:09 AM EDT Narrative [facility] - 04/08/2025 9:51 AM EDT GFR [...] ORDERABLES Fi nal Result Performing Organization Address City/[facility]/ZIP Co de Phone Number [facility]
[address] [place] [address], * Heparin Anti-Xa (04/08/2025 8:41 AM EDT) Heparin Anti-Xa ([facility]) 0.33 0.30 - 0.70 IU/ml 04/08/2025 9:40 AM EDT [facility] Blood Venipuncture / Unknown 04/08/2025 8:41 AM EDT 04/08/2025 9:10 AM EDT us Sushil Dean Jr., MD LAB BLOOD ORDERABLES Fi nal Result Performing Organization Address City/[facility]/ZIP Co de Phone Number [facility]
[address] [place] [address], [place] [phone] * [place] C Arm During Surgery (04/07/2025 9:32 PM EDT) Narrative SYSTEMGENERATED, DOCUMENTATION - 04/07/2025 9:38 PM EDT This procedure was auto-finalized with no dictation required. us Sushil Dean Jr., MD IMG FLUOROSCOPY ORDERAB LES Final Result * Wound Culture - Swab, Leg, Right (04/07/2025 9:14 PM EDT) Wound Culture No growth at 3 days ALIZA 04/11/2025 10:40 AM EDT [facility] Gram Stain Occasional WBCs seen 04/11/2025 10:40 AM EDT [facility] Gram Stain No organisms seen 04/11/2025 10:40 AM EDT [facility] Swab Structure of right lower limb / Unknown Collection / Unknown 04/07/2025 9:14 PM EDT 04/08/2025 4:36 AM EDT Sushil Dean Jr., MD MICROBIOLOGY - GENERAL ORDERABLES Final Result Performing Organization Address City/[facility]/ZIP Co de Phone Number [facility]
[address] [place] [address], [facility]
[address] [place] [address], [place] [phone] * Anaerobic Culture - Swab, Leg, Right (04/07/2025 9:14 PM EDT) Anaerobic Culture No anaerobes isolated at 5 days ALIZA 04/13/2025 7:21 AM EDT [facility] Swab Structure of right lower limb / Unknown Collection / Unknown 04/07/2025 9:14 PM EDT 04/08/2025 4:36 AM EDT Sushil Dean Jr., MD MICROBIOLOGY - GENERAL ORDERABLES Final Result [facility]
[address] [place] [address], * Anaerobic Culture - Tissue, Leg (04/07/2025 9:13 PM EDT) Anaerobic Culture No anaerobes isolated at 5 days ALIZA 04/13/2025 7:21 AM EDT [facility] Tissue Lower limb structure / Unknown Collection / Unknown 04/07/2025 9:13 PM EDT 04/08/2025 4:54 AM EDT Jason Álvarez DO MICROBIOLOGY - GENERAL ORDERABLE S Final Result Performing Organization Address [facility] Phone Number [facility]
[address] [place] [address], * Tissue / Bone Culture - Tissue, Leg, Right (04/07/2025 9:13 PM EDT) Tissue Culture No growth at 3 days ALIZA 04/11/2025 10:36 AM EDT [facility] Gram Stain Rare (1+) WBCs seen 04/11/2025 10:36 AM EDT [facility] Gram Stain No organisms seen 04/11/2025 10:36 AM EDT [facility] Tissue Structure of right lower limb / Unknown 04/07/2025 9:13 PM EDT 04/08/2025 4:54 AM EDT Sushil Dean Jr., MD MICROBIOLOGY - GENERAL ORDERABLES Final Result Performing Organization Address [facility] de Phone Number [facility]
[address] [place] [address], [facility]
[address] [place] [address], * (ABNORMAL) Wound Culture - Swab, Leg, Right (04/07/2025 9:07 PM EDT) Wound Culture Light growth (2+) Staphylococcus aureus, MRSA(A) ALIZA 04/10/2025 10:38 AM EDT [facility] Comment: Methicillin resistant Staphylococcus aureus, Patient may be an isolation risk. Gram Stain Few (2+) WBCs seen 04/10/2025 10:38 AM EDT [facility] Gram Stain No organisms seen 025 10:38 AM EDT [facility] Swab Structure of right lower limb [...] GENERAL ORDERABLES Final Result Performing Organization Address City/[facility]/ZIP Co de Phone Number [facility]
[address] [place] [address], [facility]
[address] [place] [address], * Anaerobic Culture - Swab, Leg, Right (04/07/2025 9:07 PM EDT) Pathologist [facility] Anaerobic Culture No anaerobes isolated at 5 days ALIZA 04/13/2025 7:21 AM EDT [facility] Swab Structure of right lower limb / Unknown Collection / Unknown 04/07/2025 9:07 PM EDT 04/08/2025 4:36 AM EDT Sushil Dean Jr., MD MICROBIOLOGY - GENERAL ORDERABLES Final Result Performing Organization Address City/[facility]/ZIP Co de Phone Number [facility]
[address] [place] [address], * Heparin Anti-Xa (04/07/2025 9:10 AM EDT) Heparin Anti-Xa (UFH) 0.30 0.30 - 0.70 IU/ml 04/07/2025 10:12 AM EDT [facility] Blood Venipuncture / Unknown 04/07/2025 9:10 AM EDT 04/07/2025 9:38 AM EDT Una Perla PharmD LAB BLOOD ORDERABLES Final R esult [facility]
[address] [place] [address], * (ABNORMAL) CBC Auto Differential (04/07/2025 9:10 AM EDT) [facility] WBC 8.63 3.40 - 10.80 10*3/mm3 04/07/2025 9:50 AM EDT [facility] RBC 5.23 4.14 - 5.80 10*6/mm3 04/07/2025 9:50 AM EDT [facility] Hemoglobin 14.7 13.0 - 17.7 g/dL 04/07/2025 9:50 AM EDT [facility] Hematocrit 44.8 37.5 - 51.0 % 04/07/2025 9:50 AM EDT [facility] MCV 85.7 79.0 - 97.0 fL 04/07/2025 9:50 AM EDT [facility] MCH 28.1 26.6 - 33.0 pg 04/07/2025 9:50 AM EDT [facility] MCHC 32.8 31.5 - 35.7 g/dL 04/07/2025 9:50 AM EDT [facility] RDW 12.8 12.3 - 15.4 % 04/07/2025 9:50 AM EDT [facility] RDW-SD 39.9 37.0 - 54.0 fl 04/07/2025 9:50 AM EDT [facility] MPV 10.8 6.0 - 12.0 fL 04/07/2025 9:50 AM [facility] Platelets 149 140 - 450 10*3/mm3 04/07/2025 9:50 AM [facility] Neutrophil % 66.7 42.7 - 76.0 % 04/07/2025 9:50 AM [facility] Lymphocyte % 20.5 19.6 - 45.3 % 04/07/2025 9:50 AM [facility] Monocyte % 9.8 5.0 - 12.0 % 04/07/2025 9:50 AM [facility] Eosinophil % 2.1 0.3 - 6.2 % 04/07/2025 9:50 AM [facility] Basophil % 0.3 0.0 - 1.5 % 04/07/2025 9:50 AM [facility] Immature Grans % 0.6(H) 0.0 - 0.5 % 04/07/2025 9:50 AM [facility] Neutrophils, Absolute 5.75 1.70 - 7.00 10*3/mm3 04/07/2025 9:50 AM [facility] Lymphocytes, Absolute 1.77 0.70 - 3.10 10*3/mm3 04/07/2025 9:50 AM [facility] Monocytes, Absolute 0.85 0.10 - 0.90 10*3/mm3 04/07/2025 9:50 AM [facility] Eosinophils, Absolute 0.18 0.00 - 0.40 10*3/mm3 04/07/2025 9:50 AM [facility] Basophils, Absolute 0.03 0.00 - 0.20 10*3/mm3 04/07/2025 9:50 AM [facility] Immature Grans, Absolute 0.05 0.00 - 0.05 10*3/mm3 04/07/2025 9:50 AM [facility] nRBC 0.0 0.0 - 0.2 /100 WBC 04/07/2025 9:50 AM [facility] Blood Venipuncture / Unknown 04/07/2025 9:10 AM EDT 04/07/2025 9:38 AM EDT Jason Álvarez DO LAB BLOOD ORDERABLES Final Resul t [facility]
[address] [place] [address], * (ABNORMAL) Basic Metabolic Panel (04/07/2025 9:10 AM EDT) Glucose 112(H) 65 - 99 mg/dL 04/07/2025 10:19 AM EDT [facility] BUN 13.1 6.0 - 20.0 mg/dL 04/07/2025 10:19 AM EDT [facility] Creatinine 0.77 0.76 - 1.27 mg/dL 04/07/2025 10:19 AM EDT [facility] Sodium 139 136 - 145 mmol/L 04/07/2025 10:19 AM EDT [facility] Potassium 4.2 3.5 - 5.2 mmol/L 04/07/2025 10:19 AM [facility] Comment:Specimen hemolyzed. Result may be falsely elevated. Chloride 105 98 - 107 mmol/L 04/07/2025 10:19 AM EDT [facility] CO2 24.8 22.0 - 29.0 mmol/L 04/07/2025 10:19 AM EDT [facility] Calcium 8.6 8.6 - 10.5 mg/dL 04/07/2025 10:19 AM T [facility] BUN/Creatinine Ratio 17.0 7.0 - 25.0 04/07/2025 10:19 AM EDT [facility] Anion Gap 9.2 5.0 - 15.0 mmol/L 04/07/2025 10:19 AM EDT [facility] eGFR 113.2 >60.0 mL/min/1.7 3 04/07/2025 10:19 AM EDT [facility] Blood Venipuncture / Unknown 04/07/2025 9:10 AM EDT 04/07/2025 9:38 AM EDT Narrative [facility] - 04/07/2025 10:19 AM EDT GFR [...] DO LAB BLOOD ORDERABLES Final Resul t [facility]
[address] [place] [address], * MRI Tibia Fibula Right With & [...] [place] 04/07/2025 9:58 AM EDT Workstation ID: [id number] Narrative 04/07/2025 9:58 AM EDT MRI TIBIA [...] [place]enrostro 04/07/2025 9:58 AM EDT Workstation ID: [id number] Sushil Dean Jr., MD IM MRI ORDERABLES Mary Beth l Result * Heparin Anti-Xa (04/07/2025 1:42 AM EDT) Heparin Anti-Xa (UFH) 0.38 0.30 - 0.70 IU/ml 04/07/2025 2:14 AM EDT [facility] Blood Venipuncture / Unknown 04/07/2025 1:42 AM EDT 04/07/2025 1:54 AM EDT Chelsie Turpin [facility] LAB BLOOD ORDERABLES Final R esult [facility]
[address] [place] [address], * Heparin Anti-Xa (04/06/2025 7:16 PM EDT) Heparin Anti-Xa (UFH) 0.33 0.30 - 0.70 IU/ml 04/06/2025 7:50 PM EDT [facility] Blood Venipuncture / Unknown 04/06/2025 7:16 PM EDT 04/06/2025 7:35 PM EDT Cherri Rogerio [facility] LAB BLOOD ORDERABLES Final Res ult Performing Organization Address City/[facility]/ZIP Co de Phone Number [facility]
[address] [place] [address], * Potassium (04/06/2025 7:16 PM EDT) Potassium 4.0 3.5 - 5.2 mmol/L 04/06/2025 7:53 PM EDT [facility] Blood Venipuncture / Unknown 04/06/2025 7:16 PM EDT 04/06/2025 7:35 PM EDT Jason Álvarez DO LAB BLOOD ORDERABLES Final Resul t Performing Organization Address [facility] Co de Phone Number [facility]
[address] [place] [address], * (ABNORMAL) Heparin Anti-Xa (04/06/2025 12:36 PM EDT) Heparin Anti-Xa (UFH) 0.24(L) 0.30 - 0.70 IU/ml 04/06/2025 1:23 PM EDT [facility] Blood Venipuncture / Unknown 04/06/2025 12:36 PM EDT 04/06/2025 1:07 PM EDT Una Perla PharmD LAB BLOOD ORDERABLES Final R esult Performing Organization Address City/[facility]/ZIP Co de Phone Number [facility]
[address] [place] [address], * (ABNORMAL) Heparin Anti-Xa (04/06/2025 3:42 AM EDT) Heparin Anti-Xa (UFH) 0.25(L) 0.30 - 0.70 IU/ml 04/06/2025 5:30 AM EDT [facility] Blood Venipuncture / Unknown 04/06/2025 3:42 AM EDT 04/06/2025 4:59 AM EDT Chelsie Turpin [facility] LAB BLOOD ORDERABLES Final R esult [facility]
[address] [place] [address], * (ABNORMAL) Basic Metabolic Panel (04/06/2025 3:42 AM EDT) Glucose 94 65 - 99 mg/dL 04/06/2025 5:59 AM EDT [facility] BUN 12.8 6.0 - 20.0 mg/dL 04/06/2025 5:59 AM EDT [facility] Creatinine 0.80 0.76 - 1.27 mg/dL 04/06/2025 5:59 AM EDT [facility] Sodium 138 136 - 145 mmol/L 04/06/2025 5:59 AM EDT [facility] Potassium 3.6 3.5 - 5.2 mmol/L 04/06/2025 5:59 AM EDT [facility] Chloride 103 98 - 107 mmol/L 04/06/2025 5:59 AM EDT [facility] CO2 24.2 22.0 - 29.0 mmol/L 04/06/2025 5:59 AM EDT [facility] Calcium 8.0(L) 8.6 - 10.5 mg/dL 04/06/2025 5:59 AM EDT [facility] BUN/Creatinine Ratio 16.0 7.0 - 25.0 04/06/2025 5:59 AM EDT [facility] Anion Gap 10.8 5.0 - 15.0 mmol/L 04/06/2025 5:59 AM EDT [facility] eGFR 111.9 >60.0 mL/min/1.7 3 04/06/2025 5:59 AM EDT [facility] Blood Venipuncture / Unknown 04/06/2025 3:42 AM EDT 04/06/2025 5:20 AM EDT [facility] - 04/06/2025 5:59 AM EDT GFR [...] DO LAB BLOOD ORDERABLES Final Resul t [facility]
[address] [place] [address], * (ABNORMAL) CBC Auto Differential (04/06/2025 3:41 AM EDT) WBC 10.86(H) 3.40 - 10.80 10*3/mm3 04/06/2025 5:04 AM EDT [facility] RBC 5.08 4.14 - 5.80 10*6/mm3 04/06/2025 5:04 AM EDT [facility] Hemoglobin 13.9 13.0 - 17.7 g/dL 04/06/2025 5:04 AM EDT [facility] Hematocrit 43.7 37.5 - 51.0 % 04/06/2025 5:04 AM EDT [facility] MCV 86.0 79.0 - 97.0 fL 04/06/2025 5:04 AM EDT [facility] MCH 27.4 26.6 - 33.0 pg 04/06/2025 5:04 AM EDT [facility] MCHC 31.8 31.5 - 35.7 g/dL 04/06/2025 5:04 AM [facility] RDW 12.8 12.3 - 15.4 % 04/06/2025 5:04 AM [facility] RDW-SD 40.0 37.0 - 54.0 fl 04/06/2025 5:04 AM [facility] MPV 11.7 6.0 - 12.0 fL 04/06/2025 5:04 AM [facility] Platelets 115(L) 140 - 450 10*3/mm3 04/06/2025 5:04 AM [facility] Neutrophil % 65.3 42.7 - 76.0 % 04/06/2025 5:04 AM [facility] Lymphocyte % 20.5 19.6 - 45.3 % 04/06/2025 5:04 AM [facility] Monocyte % 11.8 5.0 - 12.0 % 04/06/2025 5:04 AM [facility] Eosinophil % 1.8 0.3 - 6.2 % 04/06/2025 5:04 AM [facility] Basophil % 0.3 0.0 - 1.5 % 04/06/2025 5:04 AM [facility] Immature Grans % 0.3 0.0 - 0.5 % 04/06/2025 5:04 AM [facility] Neutrophils, Absolute 7.09(H) 1.70 - 7.00 10*3/mm3 04/06/2025 5:04 AM [facility] Lymphocytes, Absolute 2.23 0.70 - 3.10 10*3/mm3 04/06/2025 5:04 AM [facility] Monocytes, Absolute 1.28(H) 0.10 - 0.90 10*3/mm3 04/06/2025 5:04 AM [facility] Eosinophils, Absolute 0.20 0.00 - 0.40 10*3/mm3 04/06/2025 5:04 AM [facility] Basophils, Absolute 0.03 0.00 - 0.20 10*3/mm3 04/06/2025 5:04 AM EDT [facility] Immature Grans, Absolute 0.03 0.00 - 0.05 10*3/mm3 04/06/2025 5:04 AM EDT [facility] nRBC 0.0 0.0 - 0.2 /100 WBC 04/06/2025 5:04 AM EDT [facility] Blood Venipuncture / Unknown 04/06/2025 3:41 AM EDT 04/06/2025 4:58 AM EDT Jason Álvarez DO LAB BLOOD ORDERABLES Final Resul t Performing Organization Address City/[facility] Co de Phone Number [facility]
[address] [place] [address], * Heparin Anti-Xa (04/05/2025 8:43 PM EDT) Heparin Anti-Xa (UFH) 0.38 0.30 - 0.70 IU/ml 04/05/2025 9:09 PM EDT [facility] Blood Venipuncture / Unknown 04/05/2025 8:43 PM EDT 04/05/2025 8:55 PM EDT Cherri Beatty [facility] LAB BLOOD ORDERABLES Final Res ult [facility]
[address] [place] [address], [place] [phone] * CK (04/05/2025 12:15 PM EDT) Creatine Kinase 140 20 - 200 U/L 04/05/2025 1:31 PM EDT [facility] Blood Venipuncture / Unknown 04/05/2025 12:15 PM EDT 04/05/2025 1:03 PM EDT Carlton Mead MD LAB BLOOD ORDERABLES Final R esult Performing Organization Address [facility]/ZIP Co de Phone Number [facility]
[address] [place] [address], * (ABNORMAL) Heparin Anti-Xa (04/05/2025 12:15 PM EDT) Heparin Anti-Xa (UFH) 0.17(L) 0.30 - 0.70 IU/ml 04/05/2025 1:21 PM EDT [facility] Blood Venipuncture / Unknown 04/05/2025 12:15 PM EDT 04/05/2025 1:04 PM EDT Una Perla PharmD LAB BLOOD ORDERABLES Final R esult Performing Organization Address [facility] de Phone Number [facility]
[address] [place] [address], * (ABNORMAL) aPTT (04/05/2025 3:54 AM EDT) PTT 35.3(L) 60.0 - 90.0 seconds 04/05/2025 4:31 AM EDT [facility] Blood Venipuncture / Unknown 04/05/2025 3:54 AM EDT 04/05/2025 4:15 AM EDT Narrative [facility] - 04/05/2025 4:31 AM EDT PTT = The equivalent PTT values for the therapeutic range of heparin levels at 0.3 to 0.5 U/ml are 60 to 70 seconds. Uan Perla PharmRoyer LAB BLOOD ORDERABLES Final R esult Performing Organization Address [facility] Co de Phone Number [facility]
[address] [place] [address], * Heparin Anti-Xa (04/05/2025 3:54 AM EDT) Heparin Anti-Xa (UFH) 0.30 0.30 - 0.70 IU/ml 04/05/2025 4:32 AM EDT [facility] Blood Venipuncture / Unknown 04/05/2025 3:54 AM EDT 04/05/2025 4:15 AM EDT Una Perla PharmD LAB BLOOD ORDERABLES Final R esult [facility]
[address] [place] [address], * (ABNORMAL) CBC Auto Differential (04/05/2025 3:54 AM EDT) WBC 11.18(H) 3.40 - 10.80 10*3/mm3 04/05/2025 4:20 AM EDT [facility] RBC 5.00 4.14 - 5.80 10*6/mm3 04/05/2025 4:20 AM EDT [facility] Hemoglobin 13.9 13.0 - 17.7 g/dL 04/05/2025 4:20 AM EDT [facility] Hematocrit 42.4 37.5 - 51.0 % 04/05/2025 4:20 AM EDT [facility] MCV 84.8 79.0 - 97.0 fL 04/05/2025 4:20 AM EDT [facility] MCH 27.8 26.6 - 33.0 pg 04/05/2025 4:20 AM EDT [facility] MCHC 32.8 31.5 - 35.7 g/dL 04/05/2025 4:20 AM EDT [facility] RDW 12.9 12.3 - 15.4 % 04/05/2025 4:20 AM EDT [facility] RDW-SD 39.7 37.0 - 54.0 fl 04/05/2025 4:20 AM [facility] MPV 10.2 6.0 - 12.0 fL 04/05/2025 4:20 AM [facility] Platelets 160 140 - 450 10*3/mm3 04/05/2025 4:20 AM [facility] Neutrophil % 73.5 42.7 - 76.0 % 04/05/2025 4:20 AM [facility] Lymphocyte % 14.0(L) 19.6 - 45.3 % 04/05/2025 4:20 AM [facility] Monocyte % 11.0 5.0 - 12.0 % 04/05/2025 4:20 AM [facility] Eosinophil % 0.8 0.3 - 6.2 % 04/05/2025 4:20 AM [facility] Basophil % 0.3 0.0 - 1.5 % 04/05/2025 4:20 AM [facility] Immature Grans % 0.4 0.0 - 0.5 % 04/05/2025 4:20 AM [facility] Neutrophils, Absolute 8.23(H) 1.70 - 7.00 10*3/mm3 04/05/2025 4:20 AM [facility] Lymphocytes, Absolute 1.56 0.70 - 3.10 10*3/mm3 04/05/2025 4:20 AM [facility] Monocytes, Absolute 1.23(H) 0.10 - 0.90 10*3/mm3 04/05/2025 4:20 AM [facility] Eosinophils, Absolute 0.09 0.00 - 0.40 10*3/mm3 04/05/2025 4:20 AM [facility] Basophils, Absolute 0.03 0.00 - 0.20 10*3/mm3 04/05/2025 4:20 AM [facility] Immature Grans, Absolute 0.04 0.00 - 0.05 10*3/mm3 04/05/2025 4:20 AM [facility] nRBC 0.0 0.0 - 0.2 /100 WBC 04/05/2025 4:20 AM EDT [facility] Blood Venipuncture / Unknown 04/05/2025 3:54 AM EDT 04/05/2025 4:16 AM EDT Una Perla PharmD LAB BLOOD ORDERABLES Final R esult [facility]
[address] [place] [address], * (ABNORMAL) Basic Metabolic Panel (04/05/2025 3:54 AM EDT) Glucose 152(H) 65 - 99 mg/dL 04/05/2025 4:40 AM EDT [facility] BUN 17.3 6.0 - 20.0 mg/dL 04/05/2025 4:40 AM EDT [facility] Creatinine 0.92 0.76 - 1.27 mg/dL 04/05/2025 4:40 AM EDT [facility] Sodium 136 136 - 145 mmol/L 04/05/2025 4:40 AM EDT [facility] Potassium 3.9 3.5 - 5.2 mmol/L 04/05/2025 4:40 AM EDT [facility] Chloride 103 98 - 107 mmol/L 04/05/2025 4:40 AM EDT [facility] CO2 24.0 22.0 - 29.0 mmol/L 04/05/2025 4:40 AM EDT [facility] Calcium 7.8(L) 8.6 - 10.5 mg/dL 04/05/2025 4:40 AM EDT [facility] BUN/Creatinine Ratio 18.8 7.0 - 25.0 04/05/2025 4:40 AM EDT [facility] Anion Gap 9.0 5.0 - 15.0 mmol/L 04/05/2025 4:40 AM EDT [facility] eGFR 105.2 >60.0 mL/min/1.7 3 04/05/2025 4:40 AM EDT [facility] Blood Venipuncture / Unknown 04/05/2025 3:54 AM EDT 04/05/2025 4:15 AM EDT Narrative [facility] - 04/05/2025 4:40 AM EDT GFR [...] ORDERABLES Final Re sult Performing Organization Address City/[facility]/ZIP Co de Phone Number [facility]
[address] [place] [address], * (ABNORMAL) aPTT (04/05/2025 12:18 AM EDT) PTT 33.6(L) 60.0 - 90.0 seconds 04/05/2025 12:53 AM EDT [facility] Blood Venipuncture / Unknown 04/05/2025 12:18 AM EDT 04/05/2025 12:37 AM EDT Narrative [facility] - 04/05/2025 12:53 AM EDT PTT = The equivalent PTT values for the therapeutic range of heparin levels at 0.3 to 0.5 U/ml are 60 to 70 seconds. Una LundbergD LAB BLOOD ORDERABLES Final R esult Performing Organization Address City/[facility]/ZIP Co de Phone Number [facility]
[address] [place] [address], * (ABNORMAL) Protime-INR (04/05/2025 12:18 AM EDT) Protime 15.9(H) 12.2 - 15.3 Seconds 04/05/2025 12:53 AM EDT [facility] INR 1.19(H) 0.89 - 1.12 04/05/2025 12:53 AM EDT [facility] Blood Venipuncture / Unknown 04/05/2025 12:18 AM EDT 04/05/2025 12:37 AM EDT Una Minda [email or web address] LAB BLOOD ORDERABLES Final R esult Performing Organization Address City/[facility]/ZIP Co de Phone Number [facility]
[address] [place] [address], * Heparin Anti-Xa (04/05/2025 12:18 AM EDT) Pathologist [facility] Heparin Anti-Xa (UFH) 0.39 0.30 - 0.70 IU/ml 04/05/2025 12:54 AM EDT [facility] Blood Venipuncture / Unknown 04/05/2025 12:18 AM EDT 04/05/2025 12:37 AM EDT Una Minda [email or web address] LAB BLOOD ORDERABLES Final R esult [facility]
[address] [place] [id number], * MRI Tibia Fibula Right With & [...] MD 04/04/2025 11:00 PM EDT Workstation ID: [id number] Narrative 04/04/2025 11:00 PM EDT MRI TIBIA [...] MD 04/04/2025 11:00 PM EDT Workstation ID: [id number] Leonora Shepherd MD IMG MRI ORDERABLES Final Resu lt * POC Creatinine (04/04/2025 2:49 PM EDT) Pathologist [facility] Creatinine 1.10 0.60 - 1.30 mg/dL 04/07/2025 7:14 PM EDT [facility] Comment:Serial Number: [id number] 7Operator: [id number] Venous Blood 04/04/2025 2:49 PM EDT 04/07/2025 7:14 PM EDT Jason Álvarez DO POINT OF CARE TEST ORDERABLES Fi nal Result [facility]
[address] [place] [address], * (ABNORMAL) CBC Auto Differential (04/04/2025 2:47 PM EDT) WBC 12.72(H) 3.40 - 10.80 10*3/mm3 04/04/2025 2:56 PM EDT [facility] RBC 5.64 4.14 - 5.80 10*6/mm3 04/04/2025 2:56 PM EDT [facility] Hemoglobin 15.3 13.0 - 17.7 g/dL 04/04/2025 2:56 PM EDT [facility] Hematocrit 47.9 37.5 - 51.0 % 04/04/2025 2:56 PM EDT [facility] MCV 84.9 79.0 - 97.0 fL 04/04/2025 2:56 PM EDT [facility] MCH 27.1 26.6 - 33.0 pg 04/04/2025 2:56 PM EDT [facility] MCHC 31.9 31.5 - 35.7 g/dL 04/04/2025 2:56 PM EDT [facility] RDW 13.1 12.3 - 15.4 % 04/04/2025 2:56 PM EDT [facility] RDW-SD 40.3 37.0 - 54.0 fl 04/04/2025 2:56 PM EDT [facility] MPV 9.4 6.0 - 12.0 fL 04/04/2025 2:56 PM EDT [facility] Platelets 232 140 - 450 10*3/mm3 04/04/2025 2:56 PM EDT [facility] Neutrophil % 74.9 42.7 - 76.0 % 04/04/2025 2:56 PM EDT [facility] Lymphocyte % 13.1(L) 19.6 - 45.3 % 04/04/2025 2:56 PM EDT [facility] Monocyte % 11.2 5.0 - 12.0 % 04/04/2025 2:56 PM EDT [facility] Eosinophil % 0.4 0.3 - 6.2 % 04/04/2025 2:56 PM EDT [facility] Basophil % 0.2 0.0 - 1.5 % 04/04/2025 2:56 PM EDT [facility] Immature Grans % 0.2 0.0 - 0.5 % 04/04/2025 2:56 PM EDT [facility] Neutrophils, Absolute 9.52(H) 1.70 - 7.00 10*3/mm3 04/04/2025 2:56 PM EDT [facility] Lymphocytes, Absolute 1.66 0.70 - 3.10 10*3/mm3 04/04/2025 2:56 PM EDT [facility] Monocytes, Absolute 1.43(H) 0.10 - 0.90 10*3/mm3 04/04/2025 2:56 PM EDT [facility] Eosinophils, Absolute 0.05 0.00 - 0.40 10*3/mm3 04/04/2025 2:56 PM EDT [facility] Basophils, Absolute 0.03 0.00 - 0.20 10*3/mm3 04/04/2025 2:56 PM EDT [facility] Immature Grans, Absolute 0.03 0.00 - 0.05 10*3/mm3 04/04/2025 2:56 PM EDT [facility] nRBC 0.0 0.0 - 0.2 /100 WBC 04/04/2025 2:56 PM EDT [facility] Blood Venipuncture / Unknown 04/04/2025 2:47 PM EDT 04/04/2025 2:52 PM EDT us Mario Crowley DO LAB BLOOD ORDERABLES Fin al Result [facility]
[address] [place] [address], * (ABNORMAL) C-reactive Protein (04/04/2025 2:47 PM EDT) Pathologist [facility] C-Reactive Protein 8.57(H) 0.00 - 0.50 mg/dL 04/04/2025 3:26 PM EDT [facility] Blood Venipuncture / Unknown 04/04/2025 2:47 PM EDT 04/04/2025 2:52 PM EDT [facility]LES Fin al Result Performing Organization Address City/[facility] Co de Phone Number [facility]
[address] [place] [address], * (ABNORMAL) Sedimentation Rate (04/04/2025 2:47 PM EDT) [facility] Sed Rate 51(H) 0 - 15 mm/hr 04/04/2025 3:06 PM EDT [facility] Blood Venipuncture / Unknown 04/04/2025 2:47 PM EDT 04/04/2025 2:52 PM EDT [facility] Fin al Result Performing Organization Address [facility] de Phone Number [facility]
[address] [place] [address], [place] [phone] * Comprehensive Metabolic Panel (04/04/2025 2:47 PM EDT) [facility] Glucose 90 65 - 99 mg/dL 04/04/2025 3:26 PM EDT [facility] BUN 18.3 6.0 - 20.0 mg/dL 04/04/2025 3:26 PM EDT [facility] Creatinine 0.94 0.76 - 1.27 mg/dL 04/04/2025 3:26 PM EDT [facility] Sodium 136 136 - 145 mmol/L 04/04/2025 3:26 PM EDT [facility] Potassium 3.8 3.5 - 5.2 mmol/L 04/04/2025 3:26 PM EDT [facility] Chloride 100 98 - 107 mmol/L 04/04/2025 3:26 PM EDT [facility] CO2 25.3 22.0 - 29.0 mmol/L 04/04/2025 3:26 PM EDT [facility] Calcium 8.6 8.6 - 10.5 mg/dL 04/04/2025 3:26 PM EDT [facility] Total Protein 7.3 6.0 - 8.5 g/dL 04/04/2025 3:26 PM T [facility] Albumin 4.1 3.5 - 5.2 g/dL 04/04/2025 3:26 PM EDT [facility] ALT (SGPT) 26 1 - 41 U/L 04/04/2025 3:26 PM EDT [facility] AST (SGOT) 25 1 - 40 U/L 04/04/2025 3:26 PM EDT [facility] Alkaline Phosphatase 106 39 - 117 U/L 04/04/2025 3:26 PM EDT [facility] Total Bilirubin 1.0 0.0 - 1.2 mg/dL 04/04/2025 3:26 PM EDT [facility] Globulin 3.2 gm/dL 04/04/2025 3:26 PM EDT [facility] Comment:Calculated Result A/G Ratio 1.3 g/dL 04/04/2025 3:26 PM T [facility] BUN/Creatinine Ratio 19.5 7.0 - 25.0 04/04/2025 3:26 PM T [facility] Anion Gap 10.7 5.0 - 15.0 mmol/L 04/04/2025 3:26 PM T [facility] eGFR 102.5 >60.0 mL/min/1.7 3 04/04/2025 3:26 PM T [facility] Blood Venipuncture / Unknown 04/04/2025 2:47 PM EDT 04/04/2025 2:52 PM EDT [facility] - 04/04/2025 3:26 PM EDT GFR [...] include race as a factor Mario Crowley LAB BLOOD ORDERABLES Fin al Result [facility]
[address] [id number], documented in this encounter Visit Diagnoses Diagnosis [...] Hours, First dose (after last reorder) on [place] 04/06/25 at 1000, For 10 days, Caution: [...] 04/05/2025 3:33 PM EDT 2,000 Units heparin 89581 units/250 mL (100 units/mL) in 0.45 % [...] BPA Driven Protocol [facility] [employer] [facility] Electrolyte Replacement Protocol Algorithm to [...] BPA Driven Protocol [employer] [facility] Electrolyte Replacement Protocol Algorithm to [...] Marcelino, KELL)2129 (Canceled Entry - Provider: Anahy Marcelino, KELL - Comment: previously given) 0837 (Given - Provider: Amber Salazar, PERMIT COORDINATOR)2006 (Given - Provider: Loree Reese RRT)2129 (Canceled Entry - Provider: Loree Hugh, PERMIT COORDINATOR) 1037 (Given - Provider: Leonora Chen, PERMIT COORDINATOR) cefTRIAXone (ROCEPHIN) 2,000 mg in sodium chloride [...] RN)2026 (Given - Provider: Alberto Dillon, RN) 905 (Given - Provider: Shirley Hart, LU)2030 (Given - Provider: Alberto Dillon RN) 100 (Given - Provider: Marguerite Wakefield, RN) furosemide (LASIX) tablet 20 mg 20 mg, Oral, Daily, First dose on 04/05/25 at 0900 906 (Given - Provider: Shirley Hart RN) 905 (Given - Provider: Shirley Hart, LU) 1000 (Given - Provider: Marguerite Wakefield, RN) [...] Continuous Medication Order 04/09/2025 04/10/2025 04/11/2025 heparin 54742 units/250 mL (100 units/mL) in 0.45 % [...] 2032 (Not Given: See Alt - Provider: Albetro Dillon RN) 0906 (Not Given: See Alt [...] Rosenberg RN)0614 (Given - Provider: Bob Rosenberg, RN)1006 (Given - Provider: Shirley Hart, LU)1220 (Given - Provider: Shirley Hart, RN)1438 (Given - Provider: Shirley Hart, RN)1628 (Given - Provider: Shirley Hart, RN)1815 (Given - Provider: Shriley Hart, RN)2032 (Given - Provider: Alberto Dillon, RN)2245 (Given - Provider: Alberto Dillon, LU) 0109 (Given - Provider: Alberto Dillon RN)0655 (Given - Provider: Alberto Dillon RN)1414 (Given - Provider: Shirley Hart, RN)2124 (Given - Provider: Alberto Dillon RN) 1003 (Given - Provider: Marguerite Wakefield, LU) Magnesium Standard Dose Replacement - Follow Nurse [...] Hart, RN)1508 (Given - Provider: Shirley Hart, RN)203 (Given - Provider: Alberto Dillon, RN) Phosphorus Replacement - Follow Nurse / BPA Driven Protocol [facility] [employer] [facility] Electrolyte Replacement Protocol Algorithm to [...] BPA Driven Protocol [employer] [facility] Electrolyte Replacement Protocol Algorithm to [...] documented as of this encounter Care [employer] Paraprofessional Relationship Specialty Start Date End Date Provider, [place] [address] PCP - General 05/09/23 documented as of this encounter
--- OUTSIDE RECORDS SUMMARY | 2025-04-07 18:00 | XMS_ITS | Encounter Summary ---
[facility] Address [address] [place] [address] Care Team Providers Care Mess Attendant Name Role Phone Provider, No Known Primary Care Provider Unavail able Reason for Visit * Reason Comments Leg Swelling * Auth/Cert Specialty Diagnoses / Procedures Referred By Contac t Referred To Contact Diagnoses Right BKA infection Referral ID Status Reason Start Date Expiration Date Visits Re quested Visits Authorized [id number] 1 1 Encounter Details Date Type Department Care Team (Late st Contact Info) Description 04/07/2025 6:00 PM EDT - 04/07/2025 6:52 PM EDT Surgery [facility] OR [address] [place] [address] Sushil Dean Jr., MD [address] [place] [address] [address] [phone] LEG DEBRIDEMENT, IRRIGATION Social History Tobacco Use Types Packs/Day Years Used Date Smoking Tobacco: Never Smokeless Tobacco: Never Tobacco Cessation:Counseling Given: Not Answered Alcohol Use Standard Drinks/Week Comments Not Currently 0 (1 standard drink = 0.6 oz pur e alcohol) [facility] Utilities Answer Date Recorded In the past 12 months has Responsive Sports electric, gas, oil, or water company threatened [...] or training? Not on file Preferred Language Nicaraguan 04/07/2025 Sex and Gender Information Value Date [...] 2:25 PM EDT Cherri Grimm RN * Pyatt Suicide Severity Rating Scale (Screener/Recent Self-Report) Question [...] Date/Time Wound Culture - Swab, Leg, Right [[id number]] (Abnormal) (Susceptibility) Collected: 04/07/252106 Lab Status: Final [...] Units Date/Time FL C Arm During Surgery [[id number]] Resulted: 04/07/252137 Updated: 04/07/252137 Narrative: This procedure was auto-finalized with no dictation required. MRI Tibia Fibula Right With & Without Contrast [[id number]] Collected: 04/07/25 0938 Updated: 04/07/25 1001 Narrative: [...] Buenrostro 04/07/2025 9:58 AM EDT Workstation ID: [id number] MRI Tibia Fibula Right With & Without Contrast [[id number]] Collected: 04/04/252256 Updated: 04/04/252302 Narrative: MRI TIBIA [...] represent a small area of phlegmonous change (wxspia03 image 10) measuring approximately 1.6 cm which [...] MD 04/04/2025 11:00 PM EDT Workstation ID: [id number] Pending Labs Order Current Status Fungus Culture [...] Male) Date of 1980 Social Security Number [id number] [place] [address] [place] [address] Anabaptism Unknown Marital Status Unknown Admission Date 04/04/2025 Admission Type Emergency Admitting Provider Jadyn Richardson DO Attending Provider Jadyn Richardson DO Department, Room/Bed [facility] 5G, S565/1 Discharge Date Discharge Disposition Discharge Destination Attending Provider: Jadyn Richardson DO Allergies: Ceftin [Cefuroxime], Keflex [Cephalexin], Latex Isolation: None Infection: MRSA (05/11/23) Code Status: CPR Ht: 180.3 cm (71 ) Wt: 134 kg (295 lb) Admission Cmt: None 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 Insurance as of 04/04/2025 Primary Coverage Payor Plan Insurance Group Employer/Plan Group [place] [id number] Payor Plan Address Payor Plan Phone Number Payor Plan Fax Number Effective Dates [employer] [address] [address] 08/10/2023 - None Entered [facility] [id number] Subscriber Name Subscriber Date Member ID WON DENNIS 1980 [id number] Emergency Contacts Sales & Service Associate (Rel.) Home Phone Work Phone Mobile Phone Avril Dennis (Spouse) -- -- [phone] Robert Hackett (Relative) -- -- [phone] [facility] 5G [address] [facility] [address] Patient: ROOM: [facility] Won Dennis [address] [facility] [place] [address] : 1980 SSN: [id number] Sex: M PCP: Provider, No Known Emergency Contact Information Name Relation Home Work Mobile Avril Dennis Spouse [phone] Other Contacts Name Relation Home Work Mobile Robert Hackett Relative [phone] INSURANCE PAYOR PLAN [employer] # SUBSCRIBER ID Primary: Secondary: MEDICARE [place] [id number] Admitting Diagnosis: 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 He is known [...] Jr., MD, 20 mg at 04/09/25906 heparin 37288 units/250 mL (100 units/mL) in 0.45 % [...] Units Date/Time FL C Arm During Surgery [[id number]] Resulted: 04/07/252137 Updated: 04/07/252137 Narrative: This procedure was auto-finalized with no dictation required. MRI Tibia Fibula Right With & Without Contrast [[id number]] Collected: 04/07/2538 Updated: 04/07/25 1001 Narrative: MRI [...] Buenrostro 04/07/2025 9:58 AM EDT Workstation ID: [id number] Impression: Recurrent Right BKA stump abscess/cellulitis- this [...] disposition with the pharmacist at [facility] today. I will sign off Outpatient orders: 1. Outpatient intravenous antibiotic therapy: Daptomycin 800 mg IV daily to be supplied by [facility] 2. Home health to perform weekly [...] 04/10/251323 Creation Time: 04/10/251323 Signed Expand All [facility] Medicine Services PROGRESS NOTE Patient Name: [...] Date/Time Wound Culture - Swab, Leg, Right [[id number]] (Abnormal) (Susceptibility) Collected: 04/07/252106 Lab Status: Final [...] Row Name 04/06/25 1143 Sit-Stand Transfer Sit-Stand Payne (Transfers) modified independence - Comment, (Sit-Stand Transfer) Pt stood from recliner. Not holding onto walker, pt able to pull his pants up while balancing on his one leg. -LM Row Name 04/06/25 1143 Gait/Stairs (Locomotion) Payne Level (Gait) modified independence - Distance in [...] Motion bilateral lower extremity ROM WFL -LM [facility] Name 04/06/25 1145 Strength Comprehensive (MMT) General Manual Muscle Testing (MMT) Assessment no strength deficits identified BLEs -LM [facility] Name 04/06/25 1145 Balance Balance Assessment [...] Physical Therapist Goals/Plan No documentation. Clinical Impression [facility] 04/06/25 1146 Pain Pretreatment Pain Rating 0/10 - no pain -LM Posttreatment Pain Rating 0/10 - no pain -LM [facility] 04/06/25 1146 Plan of Care Review Plan of Care Reviewed With patient -LM Outcome Evaluation PT evaluation completed. Pt demonstrated independence with all mobility including ambulating 100 feet using rw - no unsteadiness noted. Pt reports he feels at baseline and doesn't think he needs skilled PT while here. Recommend home at d/c. PT signing off. -LM [facility] Name 04/06/25 1146 Therapy Assessment/Plan (PT) Criteria for Skilled Interventions Met (PT) no;no problems identified which require skilled intervention -LM Therapy Frequency (PT) evaluation only -LM Predicted Duration of Therapy Intervention (PT) Eval Only -LM [facility] Name 04/06/25 1146 Vital Signs Pretreatment Heart Rate (beats/min) 86 -LM Posttreatment Heart Rate (beats/min) 96 -LM Pre SpO2 (%) 95 -LM O2 Delivery Pre Treatment room air -LM Post SpO2 (%) 96 -LM O2 Delivery Post Treatment room air -LM Pre Patient Position Sitting -LM Post Patient Position Sitting -LM [facility] Name 04/06/25 1146 Positioning and Restraints [...] Nurse Physical Therapy Education Title: PT OT VENEER TAPER Therapies (Done) Topic: Physical Therapy (Done) Point: Mobility training (Done) Learning Progress Summary Patient Acceptance, E, VU,DU by at 04/06/2025 1147 Point: Precautions (Done) Learning Progress Summary Patient Acceptance, E, VU,DU by at 04/06/2025 1147 User Cabrera Initials Effective Dates Name Provider Type [facility] 01/24/25 - Susan Cavazos, PT Physical Therapist [...] Description Service Date Service Provider Modifiers Qty [id number] PT EVAL LOW COMPLEXITY 3 04/06/2025 Susan [...] Date/Time Wound Culture - Swab, Leg, Right [[id number]] (Abnormal) (Susceptibility) Collected: 04/07/252106 Lab Status: Final [...] INFECTIOUS DISEASE Progress Note Won Dennis 1980 [id number] Date of Consult: 04/10/2025 Admission Date: 04/04/2025 [...] which prompted him to seek treatment at [facility]. He is known [...] IRRIGATION; Surgeon: Sushil Dean Jr., MD; Location: [facility]; Service: Orthopedics; Laterality: Right; PLACEMENT OF [...] Jr., MD, 20 mg at 04/09/25906 heparin 84081 units/250 mL (100 units/mL) in 0.45 % NaCl infusion, 18 Units/kg/hr, Intravenous, Titrated, Una Perla, PharmD, Last Rate: 24.1 mL/hr at 04/10/25 0313, 18 Units/kg/hr at 04/10/25 0313 hydroCHLOROthiazide tablet 12.5 mg, 12.5 mg, Oral, [...] to Dose Heparin, , Not Applicable, Continuous PRNJermaine David A Jr., MD Phosphorus Replacement - Follow Nurse / BPA Driven Protocol, , Not Applicable, PRNJermaine DavidA Jr., MD Potassium Replacement - Follow Nurse [...] % flush 10 mL, 10 mL, Intravenous, PRAlyce Pearson Mark J, MD sodium chloride 0.9 % flush 20 [...] Units Date/Time FL C Arm During Surgery [[id number]] Resulted: 04/07/252137 Updated: 04/07/252137 Narrative: This procedure was auto-finalized with no dictation required. MRI Tibia Fibula Right With & Without Contrast [[id number]] Collected: 04/07/25 0938 Updated: 04/07/25 1001 Narrative: [...] osteomyelitis at this time. Electronically Signed: Huhg Chitra 04/07/2025 9:58 AM EDT Workstation ID: [id number] Impression: Recurrent Right BKA stump abscess/cellulitis- this [...] disposition with the pharmacist at [facility] today. I will sign off Outpatient orders: 1. Outpatient intravenous antibiotic therapy: Daptomycin 800 mg IV daily to be supplied by [facility] 2. Home health to perform weekly [...] MD 04/10/2025 07:38 EDT * Larisa Hamilton, [facility] - 04/10/2025 7:17 AM [...] 0500 0.30 11 -- -- 11 1200 [facility] 04/05 1215 0.17 11 1999 [...] 0400 Patient back on floor following procedure. ALDEN RN to restart drip 04/09 0418 0.41 [...] Behavior normal. Results Reviewed: LAB RESULTS: Lab 04/09/2541704/08/2584004/07/2590904/06/2534004/05/2535304/05/25 0018 04/04/25 1447 WBC 11.00* 10.07 8.63 [...] -- -- -- 35.3* 33.6* -- Lab 04/09/2541704/08/2584004/07/2590904/06/25 1916 04/06/2534104/05/25353 SODIUM 135* 136 139 -- 138 136 [...] Date/Time Wound Culture - Swab, Leg, Right [[id number]] (Abnormal) Collected: 04/07/252106 Lab Status: Preliminary result [...] Patient Jason Álvarez DO 04/09/25 * Larisa Hamilton, [facility] - 04/09/2025 11:36 AM [...] 0500 0.30 11 -- -- 11 1200 [facility] 04/05 1215 0.17 11 1999 [...] 0400 Patient back on floor following procedure. ALDEN RN to restart drip 04/09 0418 0.41 18 -- -- 18 1100 DW RN 04/09 1005 0.36 18 -- -- 18 0600 04/10 ALDEN RN; pump verified Larisa Hamilton RPH 04/09/2025 11:35 EDT * Carlton Mead MD - 04/09/2025 8:25 AM EDT Images from the original note were not included. INFECTIOUS DISEASE Progress Note Won Dennis 1980 [id number] Date of Consult: 04/09/2025 Admission Date: 04/04/2025 [...] which prompted him to seek treatment at [facility]. He is known [...] Dean Jr., MD; Location: [facility]; Service: Orthopedics; Laterality: Right; PLACEMENT OF WOUND VAC Right 04/07/2025 Procedure: WOUND VACUUM ASSISTED CLOSURE; Surgeon: Sushil Dean Jr., MD; Location: [facility]; Service: Orthopedics; Laterality: Right; History [...] cream 1 Application, 1 Application, Topical, Q12H, Ssuhil Dean Jr., MD, 1 Application at 04/08/252007 [...] MD, 20 mg at 04/08/25 0800 heparin 99661 units/250 mL (100 units/mL) in 0.45 % NaCl infusion, 18 Units/kg/hr, Intravenous, Titrated, Una Perla, PharmD, Last Rate: 24.1 mL/hr at 04/09/25 0614, 18 Units/kg/hr at 04/09/25 0614 hydroCHLOROthiazide tablet 12.5 mg, 12.5 mg, Oral, [...] BPA Driven Protocol, , Not Applicable, PRLili, Sushil Dean Jr., MD saccharomyces boulardii (FLORASTOR) [...] Units Date/Time FL C Arm During Surgery [[id number]] Resulted: 04/07/252137 Updated: 04/07/252137 Narrative: This procedure was auto-finalized with no dictation required. MRI Tibia Fibula Right With & Without Contrast [[id number]] Collected: 04/07/25937 Updated: 04/07/25 1001 Narrative: MRI TIBIA FIBULA [...] Chitra 04/07/2025 9:58 AM EDT Workstation ID: [id number] Impression: Recurrent Right BKA stump abscess/cellulitis- this [...] Buenrostro 04/07/2025 9:58 AM EDT Workstation ID: [id number] I have personally reviewed the therapy plans: [...] Support Discussed With: Patient Jason DO Preeti 04/08/25 * Larisa Hamilton, [facility] - 04/08/2025 11:48 AM [...] 1236 0.24 16 -- +2 18 2000 RN Pump checked 04/06 1916 0.33 18 [...] INFECTIOUS DISEASE Progress Note Won Dennis 1980 [id number] Date of Consult: 04/08/2025 Admission Date: 04/04/2025 [...] which prompted him to seek treatment at [facility]. He is known [...] Jr., MD; Location: [facility] OR; Service: Orthopedics; Laterality: Right; PLACEMENT OF [...] Jr., MD, 20 mg at 04/07/25950 heparin 63714 units/250 mL (100 units/mL) in 0.45 % NaCl infusion, 18 Units/kg/hr, Intravenous, Titrated, Sushil Dean Jr., MD, Last Rate: 24.1 mL/hr at 04/07/252333, 18 Units/kg/hr at 4 hydroCHLOROthiazide tablet 12.5 mg, 12.5 mg, Oral, Daily, Sushil Dean Jr., MD, 12.5 mg at 09/29/25 0951 HYDROmorphone (DILAUDID) injection 0.5 mg, 0.5 mg, [...] Sushil Dean Jr., MD, 250 mg at 04/07/25 0951 sertraline (ZOLOFT) tablet 100 mg, 100 mg, [...] % 50 mL IVPB Ordering Provider: Sushil eDan Jr., MD 8 mg/kg ?? 98.8 kg [...] 90 Minutes Intravenous Every 12 Hours 04/05/25 0804/05/25120604/04/252004 Pharmacy to dose vancomycin Status: Discontinued Ordering [...] Units Date/Time FL C Arm During Surgery [[id number]] Resulted: 04/07/252137 Updated: 04/07/252137 Narrative: This procedure was auto-finalized with no dictation required. MRI Tibia Fibula Right With & Without Contrast [[id number]] Collected: 04/07/25 0938 Updated: 04/07/25 1001 Narrative: [...] Buenrostro 04/07/2025 9:58 AM EDT Workstation ID: [id number] Impression: 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 (Treated by ID in [place] Dr. Harris). Dr. Torres treated him with [...] Buenrostro 04/07/2025 9:58 AM EDT Workstation ID: [id number] I have personally reviewed the therapy plans: [...] 18 Units/kg/hr, Last Rate: 18 Units/kg/hr (04/07/25 8548) Pharmacy to Dose Heparin, PRN Meds:. acetaminophen [...] Álvarez DO 04/07/25 * Larisa Hamilton [facility] - 04/07/2025 11:56 AM [...] Pending New start -- +11 11 06 DW RN Mary. Pt has Factor II [...] INFECTIOUS DISEASE Progress Note Won Dennis 1980 [id number] Date of Consult: 04/07/2025 Admission Date: 04/04/2025 Requesting Provider: Evaluating Physician: Dr. Malbe Mead MD. Reason for Consultation: cellulitis History [...] which prompted him to seek treatment at [facility]. He is known [...] Application, 1 Application, Topical, Q12H, Ayah Valentin, PUMP INSTALLATION AND SERVICER, 1 Application at 04/06/252101 DAPTOmycin (CUBICIN) 800 mg in sodium chloride 0.9 % 50 mL IVPB, 8 mg/kg (Adjusted), Intravenous, Q24H, Carlton Mead MD, Last Rate: 100 mL/hr at 04/06/25 1059, 800 mg at 04/06/251058 ferrous sulfate tablet 325 mg, 325 mg, Oral, BID, Leonora Shepherd MD, 325 mg at 04/06/252100 furosemide (LASIX) tablet 20 mg, 20 mg, Oral, Daily, Leonora Shepherd MD, 20 mg at 04/06/25 0900 heparin 83648 units/250 mL (100 units/mL) in 0.45 % NaCl infusion, 18 Units/kg/hr, Intravenous, Titrated, Cherri Beatty, [facility], Last Rate: 24.1 mL/hr [...] mg, 4 mg, Translingual, Q6H PRN, Jason Álvarez, , 4 mg at 04/06/25 1002 oxybutynin XL (DITROPAN-XL) 24 hr tablet 10 mg, 10 mg, Oral, Nightly, Leonora Shepherd MD, 10 mg at 04/06/252101 Pharmacy to Dose Heparin, , Not Applicable, Continuous JACKSON, Una Perla, Jasbir Phosphorus Replacement - Follow Nurse / BPA Driven Protocol, , Not Applicable, PRLili, Leonora Shepherd MD Potassium Replacement - Follow Nurse / BPA Driven Protocol, , Not Applicable, PRJoao Pearson Laurie, MD saccharomyces boulardii (FLORASTOR) capsule 250 [...] With & Without Contrast - In process [[id number]] Resulted: 04/07/25828 Updated: 04/07/25828 This result has not been signed. Information might be incomplete. MRI Tibia Fibula Right With & Without Contrast [[id number]] Collected: 04/04/252256 Updated: 04/04/252302 Narrative: MRI TIBIA [...] represent a small area of phlegmonous change (postgs78 image 10) measuring approximately 1.6 cm which [...] MD 04/04/2025 11:00 PM EDT Workstation ID: [id number] Impression: 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 (Treated by ID in [place] Dr. Harris). Dr. Torres treated him with [...] Rate 60 - 100 87 87 04/06 858 Resp 16 - 18 18 18 04/06 858 BP 110/62 - 122/75 120/69 120/69 04/06 858 SpO2 (%) 88 - 94 90 04/06 [...] mg Daily 04/05/2025 -- Route: Oral heparin 05633 units/250 mL (100 units/mL) in 0.45 % [...] is developing. N.p.o. beginningat 9 AM. Sushil eDan Jr, MD 04/07/25 06:07 EDT * Cherri Beatty [facility] - 04/06/2025 1:47 PM [...] Pending New start -- +11 11 [address] [place]. 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 04/05 0500 0.30 11 -- -- 11 1200 [facility] 04/05 1215 0.17 11 1999 +3 14 2100 DW RN Pump checked 04/05 2043 0.38 14 -- -- 14 0300 [facility] 04/06 0530 0.25 14 -- +2 16 1200 [address] Mary 04/06 1236 0.24 16 -- +2 18 1999 LU Beatty [facility] 04/06/2025 13:48 EDT * Jason Álvarez DO [...] region diffusely. No drainable collection identified. There johnane small patchy area of hypoattenuation present which [...] MD 04/04/2025 11:00 PM EDT Workstation ID: [id number] I have personally reviewed the therapy plans: [...] mg Daily 04/05/2025 -- Route: Oral heparin 50527 units/250 mL (100 units/mL) in 0.45 % [...] INFECTIOUS DISEASE follow up. Won Dennis 1980 [id number] Date of Consult: 04/06/2025 Admission Date: 04/04/2025 [...] which prompted him to seek treatment at [facility]. He is known [...] MD, 20 mg at 04/06/25 0900 heparin 56943 units/250 mL (100 units/mL) in 0.45 % NaCl infusion, 18 Units/kg/hr, Intravenous, Titrated, Cherri Beatty [facility], Last Rate: 24.1 mL/hr [...] Nightly, Leonora Shepherd MD, 10 mg at 04/05/25 2159 Pharmacy to Dose Heparin, , Not Applicable, [...] Tibia Fibula Right With & Without Contrast [[id number]] Collected: 04/04/252256 Updated: 04/04/252302 Narrative: MRI TIBIA [...] MD 04/04/2025 11:00 PM EDT Workstation ID: [id number] Impression: 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 (Treated by ID in [place] Dr. Harris). Dr. Torres treated him with [...] 04/06/2025 16:00 EDT * Cherri Beatty, [facility] - 04/05/2025 3:01 PM EDT [...] MD 04/04/2025 11:00 PM EDT Workstation ID: [id number] I have personally reviewed the therapy plans: [...] MD 04/04/2025 11:00 PM EDT Workstation ID: [id number] Assessment & Plan Assessment & Plan Won [...] PICC placed by Rhoda Bonner RN [facility] tip verified by 3CG see LDA. 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 He [...] was evaluated in the emergency department in [place], was discharged with instructions for follow-up. He [...] tablet by mouth Daily. 04/03/2025 Morning Lactobacillus-Inulin ([facility] Curb ([employer])) capsule Take 200 mg by mouth Daily. [...] MD 04/04/2025 11:00 PM EDT Workstation ID: [id number] Assessment: Right BKA infection 44-year-old male with [...] DISEASE CONSULT/INITIAL HOSPITAL VISIT Won Dennis 1980 [id number] Date of Consult: 04/05/2025 Admission Date: 04/04/2025 [...] which prompted him to seek treatment at [facility]. He is known [...] Leonora Shepherd MD, 40 mg at 04/04/25 2359 sennosides-docusate (PERICOLACE) 8.6-50 MG per tablet 2 [...] MD, 20 mg at 04/05/25 0916 heparin 98242 units/250 mL (100 units/mL) in 0.45 % [...] , Not Applicable, PRJoao Pearson Laurie, MD saccharomyces boulardii (FLORASTOR) capsule 250 [...] Nightly, Leonora Shepherd MD, 0.4 mg at 04/04/25 2359 valsartan (DIOVAN) tablet 40 mg, 40 mg, [...] Intravenous Once 04/04/25195804/05/25 001 Review of Systems: Constitutional-- No Fever, chills [...] Tibia Fibula Right With & Without Contrast [[id number]] Collected: 04/04/252256 Updated: 04/04/252302 Narrative: MRI TIBIA [...] represent a small area of phlegmonous change ([id number] image 10) measuring approximately 1.6 cm which [...] MD 04/04/2025 11:00 PM EDT Workstation ID: [id number] Impression: 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 (Treated by ID in [place] Dr. Harris). Dr. Torres treated him with [...] Symptom Control Recent Flowsheet Documentation Taken 04/09/2025 by Bob [...] (HOB) Positioning: HOB at 30-45 degrees Taken 04/08/2025 1943 by Bob Rosenberg RN Activity Management: activity [...] - 04/08/2025 3:51 PM EDT [facility] OPERATIVE REPORT PATIENT NAME: Won Dennis DATE OF : 1980 PREOP DIAGNOSIS: Right Right below-knee amputation infection POSTOP DIAGNOSIS: Same. PROCEDURE: Right Right 66791: Secondary closure below-knee amputation SURGEON: Sushil Dean MD OPERATIVE TEAM: Sports Development Officer: Susi Grullon RN Scrub Person: Mary Paredes Scrub Person Extra: Hortencia Toribio Other: Katt Gotti RN; Charis Neville RN ANESTHETIST: Anesthesiologist: Ulises Hoffman MD DIP LUBE OPERATOR: Stan Casillas CRNA Student Nurse Lead Presser: Karol Albert SRNA ANESTHESIA: Choice ESTIMATED BLOOD [...] CULTURE (Canceled) Sushil Dean Jr., MD 04/08/25 7824 Description: RIGHT LEG DEEP WOUND FOR CULTURE [...] Jr., MD - 04/07/2025 9:03 PM EDT [facility] [address] [facility] 250 OPERATIVE REPORT PATIENT NAME: Won Dennis DATE OF : 1980 PREOP DIAGNOSIS: Right Right below knee amputation stump infection POSTOP DIAGNOSIS: Same. PROCEDURE: Right Right 82853: Incision and drainage of surgical site infection 47822: Debridement of skin, subcutaneous tissue, muscle 63460: Wound vacuum-assisted closure SURGEON: Sushil Dean MD OPERATIVE TEAM: Sports Development Officer: Anum Sanchez RN Scrub Person: Hortencia Toribio; Gerald Ivey TRANSITIONS RN CARE COORDINATOR: Anesthesiologist: Luci Alonso DO ANESTHESIA: General [...] ago swellling of the area. seen at [facility] yesterday for CT [...] this chart in the absence of a office assistance. No orders to display RADIOLOGY: [x] Radiologist's [...] 04/11/2025 1:30 PM EDT Continued Stay Note Nilda Patient Name: Won Dennis Today's Date: 04/11/2025 [...] changes. CM has spoke with Dena at [facility] today multiple times to get setup [...] Plan yes Plan Comments CM spoke with the patient at bedside today. Patient was going to get IV ABX at home with [facility]; however, Medicaid lapsed on 04/08. CM was unaware until this morning that Medicaid has lapsed. Patient explained that he has Medicare A and B. CM spoke with KELLEE and given themhis Medicare number [id number], she sent it to Admission. CM spoke with Kerri, with [facility], and explained that he had Medicare A and B. However, it will not cover home infusion. It will be $64.00 a day out of packet. Patients can go to the Infusion center at [facility], and it will cover the cost as an outpatient. He will need to go there every day for infusion. They will be able to do the patients' PICC line dressing changes and lab work. CM called [facility] they can accept patient and start him. He is known for their facility. The Facility will need to run it through his insurance first. CM faxed the orders over to [facility] at [phone]. CM will follow up with them tomorrow [...] 04/09/2025 2:51 PM EDT Continued Stay Note DENISHA Munguia Patient Name: Won Dennis Today's Date: 04/09/2025 Admit Date: 04/04/2025 Plan: Home Discharge Plan Row Name 04/09/25 1311 Plan Plan Home Patient/Family in Agreement with Plan yes Plan Comments CM spoke with patient at bedside today. Wheelchair from [employer] is at bedside. Patient getting PICC line [...] note were not included. 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 CM will order wheelchair through [employer]. He is not current with home health services. PCP is Dr. Jordan. Insurance is [employer] [place]. Patient discharge plan is home with priavte transport. CM will follow for any discharge needs. Final Discharge Disposition Code 01 - home or self-care Continued Care and Services - Admitted Since 04/04/2025 No active coordination exists. Demographic Summary Row Name 04/07/25 1143 General Information Arrived From hospital Preferred Language Nicaraguan Functional Status Row Name 04/07/25 1143 Functional [...] CBC Auto Differential (04/11/2025 3:40 AM EDT) [facility] WBC 7.87 3.40 - 10.80 10*3/mm3 [...] 450 10*3/mm3 04/11/2025 4:02 AM [facility] Neutrophil % 59.5 42.7 - 76.0 % 04/11/2025 4:02 AM [facility] Lymphocyte % 26.3 19.6 - 45.3 % 04/11/2025 4:02 AM [facility] Monocyte % 9.3 5.0 - 12.0 % 04/11/2025 4:02 AM [facility] Eosinophil % 4.1 0.3 - 6.2 % 04/11/2025 4:02 AM [facility] Basophil % 0.4 0.0 - 1.5 % 04/11/2025 4:02 AM [facility] Immature Grans % 0.4 0.0 - 0.5 % 04/11/2025 4:02 AM [facility] Neutrophils, Absolute 4.69 1.70 - 7.00 10*3/mm3 04/11/2025 4:02 AM [facility] Lymphocytes, Absolute 2.07 0.70 - 3.10 10*3/mm3 04/11/2025 4:02 AM [facility] Monocytes, Absolute 0.73 0.10 - 0.90 10*3/mm3 04/11/2025 4:02 AM [facility] Eosinophils, Absolute 0.32 0.00 - 0.40 10*3/mm3 04/11/2025 4:02 AM [facility] Basophils, Absolute 0.03 0.00 - 0.20 10*3/mm3 04/11/2025 4:02 AM [facility] Immature Grans, Absolute 0.03 0.00 - 0.05 10*3/mm3 04/11/2025 4:02 AM [facility] nRBC 0.0 0.0 - 0.2 /100 WBC 04/11/2025 4:02 AM [facility] Blood Venipuncture / Unknown 04/11/2025 3:40 AM EDT 04/11/2025 3:59 AM EDT us Sushil Dean Jr., MD LAB BLOOD ORDERABLES Fi nal Result [facility]
[address] [place] [address], * (ABNORMAL) Comprehensive Metabolic Panel (04/11/2025 3:40 AM EDT) Pathologist [facility] Glucose 108(H) 65 - 99 mg/dL 04/11/2025 [...] 3:40 AM EDT 04/11/2025 3:56 AM EDT [facility] - 04/11/2025 4:19 AM EDT [...] Final Result [facility]
[address] [place] [address], * (ABNORMAL) CBC Auto Differential (04/10/2025 3:46 AM EDT) [facility] WBC 9.60 3.40 - 10.80 10*3/mm3 04/10/2025 3:56 AM EDT [facility] RBC 4.67 4.14 - 5.80 10*6/mm3 04/10/2025 3:56 AM EDT [facility] Hemoglobin 12.9(L) 13.0 - 17.7 g/dL 04/10/2025 3:56 AM EDT [facility] Hematocrit 40.1 37.5 - 51.0 % 04/10/2025 3:56 AM EDT [facility] MCV 85.9 79.0 - 97.0 fL 04/10/2025 3:56 AM EDT [facility] MCH 27.6 26.6 - 33.0 pg 04/10/2025 3:56 AM EDT [facility] MCHC 32.2 31.5 - 35.7 g/dL 04/10/2025 3:56 AM EDT [facility] RDW 12.9 12.3 - 15.4 % 04/10/2025 3:56 AM EDT [facility] RDW-SD 40.5 37.0 - 54.0 fl 04/10/2025 3:56 AM EDT [facility] MPV 9.5 6.0 - 12.0 fL 04/10/2025 3:56 AM EDT [facility] Platelets 227 140 - 450 10*3/mm3 04/10/2025 3:56 AM EDT [facility] Neutrophil % 59.1 42.7 - 76.0 % 04/10/2025 3:56 AM EDT [facility] Lymphocyte % 29.0 19.6 - 45.3 % 04/10/2025 3:56 AM EDT [facility] Monocyte % 8.1 5.0 - 12.0 % 04/10/2025 3:56 AM EDT [facility] Eosinophil % 3.2 0.3 [...] Resul t [facility]
[address] [place] [address], * (ABNORMAL) Basic Metabolic Panel (04/10/2025 3:46 AM EDT) Glucose 125(H) 65 - 99 mg/dL 04/10/2025 4:20 AM [facility] BUN 15.9 6.0 - 20.0 mg/dL 04/10/2025 4:20 AM [facility] Creatinine 0.77 0.76 - 1.27 mg/dL 04/10/2025 4:20 AM [facility] Sodium 137 136 - 145 mmol/L 04/10/2025 4:20 AM [facility] Potassium 3.9 3.5 - 5.2 mmol/L 04/10/2025 4:20 AM [facility] Chloride 102 98 - 107 mmol/L 04/10/2025 4:20 AM [facility] CO2 26.9 22.0 - 29.0 mmol/L 04/10/2025 4:20 AM [facility] Calcium 7.9(L) 8.6 - 10.5 mg/dL 04/10/2025 4:20 AM [facility] BUN/Creatinine Ratio 20.6 7.0 - 25.0 04/10/2025 4:20 AM [facility] Anion Gap 8.1 5.0 - 15.0 mmol/L 04/10/2025 4:20 AM [facility] eGFR 113.2 >60.0 mL/min/1.7 3 04/10/2025 4:20 AM [facility] Blood Venipuncture / Unknown 04/10/2025 3:46 AM EDT 04/10/2025 3:52 AM [facility] - 04/10/2025 4:20 [...] does not include race as a factor Jasno Álvarez DO LAB BLOOD ORDERABLES Final Resul t [facility]
[address] [place] [address], * Heparin Anti-Xa (04/10/2025 3:46 AM EDT) Heparin Anti-Xa (UFH) 0.35 0.30 - 0.70 IU/ml 04/10/2025 4:23 AM EDT [facility] Blood Venipuncture / Unknown 04/10/2025 3:46 AM EDT 04/10/2025 3:53 AM EDT [facility] LAB BLOOD ORDERABLES Final R esult Performing Organization Address City/[facility]/ZIP Co de Phone Number [facility]
[address] [place] [address], * Heparin Anti-Xa (04/09/2025 10:05 AM EDT) Pathologist [facility] Heparin Anti-Xa (UFH) 0.36 0.30 - 0.70 IU/ml 04/09/2025 11:12 AM EDT [facility] Blood Venipuncture / Unknown 04/09/2025 10:05 AM EDT 04/09/2025 10:47 AM EDT [facility] LAB BLOOD ORDERABLES Final R esult [facility]
[address] [place] [address], * (ABNORMAL) CBC Auto Differential (04/09/2025 4:18 AM EDT) WBC 11.00(H) 3.40 - 10.80 10*3/mm3 04/09/2025 4:50 AM EDT [facility] RBC 4.70 4.14 - 5.80 10*6/mm3 04/09/2025 4:50 AM EDT [facility] Hemoglobin 13.0 13.0 - 17.7 g/dL 04/09/2025 4:50 AM EDT [facility] Hematocrit 40.4 37.5 - 51.0 % 04/09/2025 4:50 AM EDT [facility] MCV 86.0 79.0 - 97.0 fL 04/09/2025 4:50 AM EDT [facility] MCH 27.7 26.6 - 33.0 pg 04/09/2025 4:50 AM EDT [facility] MCHC 32.2 31.5 - 35.7 g/dL 04/09/2025 4:50 [facility] RDW 12.8 12.3 - 15.4 % 04/09/2025 4:50 AM [facility] RDW-SD 39.9 37.0 - 54.0 fl 04/09/2025 4:50 AM [facility] MPV 10.0 6.0 - 12.0 fL 04/09/2025 4:50 AM [facility] Platelets 211 140 - 450 10*3/mm3 04/09/2025 4:50 AM EDT [facility] Neutrophil % 74.8 42.7 - 76.0 % 04/09/2025 4:50 AM EDT [facility] Lymphocyte % 15.4(L) 19.6 - 45.3 % 04/09/2025 4:50 AM EDT [facility] Monocyte % 8.5 5.0 - 12.0 % 04/09/2025 4:50 AM EDT [facility] Eosinophil % 0.6 0.3 - 6.2 % 04/09/2025 4:50 AM EDT [facility] [...] 4:18 AM EDT 04/09/2025 4:31 AM EDT Ssuhil Dean Jr., MD LAB BLOOD ORDERABLES nal Result [facility]
[address] [place] [address], * Heparin Anti-Xa (04/09/2025 4:18 AM EDT) Heparin Anti-Xa (UFH) 0.41 0.30 - 0.70 IU/ml 04/09/2025 4:53 AM EDT [facility] Blood Venipuncture / Unknown 04/09/2025 4:18 AM EDT 04/09/2025 4:31 AM EDT Una Minda PharmD LAB BLOOD ORDERABLES Final R esult [facility]
[address] [place] [address], * (ABNORMAL) Basic Metabolic Panel (04/09/2025 4:18 [...] ORDERABLES Fi nal Result Performing Organization Address City/[facility] Co de Phone Number [facility]
[address] [place] [address], * Wound Culture - Swab, Leg, Right (04/08/2025 3:40 PM EDT) Wound Culture No growth at 3 days ALIZA 04/11/2025 10:40 AM EDT [facility] Gram Stain Few (2+) WBCs seen 04/11/2025 10:40 AM EDT [facility] Gram Stain No organisms seen 04/11/2025 10:40 AM EDT [facility] Swab Structure of right lower limb / Unknown 04/08/2025 3:40 PM EDT 04/08/2025 8:05 PM EDT Sushil Dean Jr., MD MICROBIOLOGY - GENERAL ORDERABLES Final Result Performing Organization Address City/[facility]/ZIP Co de Phone Number [facility]
[address] [place] [address], [place] [phone] [facility]
[address] [place] [address], * Anaerobic Culture - Swab, Leg, Right (04/08/2025 3:40 PM EDT) Pathologist [facility] Anaerobic Culture No anaerobes isolated at 5 days ALIZA 04/13/2025 7:24 AM EDT [facility] Swab Structure of right lower limb / Unknown 04/08/2025 3:40 PM EDT 04/08/2025 8:05 PM EDT Sushil Dean Jr., MD MICROBIOLOGY - GENERAL ORDERABLES Final Result Performing Organization Address City/[facility] Co de Phone Number [facility]
[address] [place] [address], * Scan Slide (04/08/2025 8:41 AM EDT) [...] R esult [facility]
[address] [place] [address], [place] [phone] * (ABNORMAL) CBC Auto Differential (04/08/2025 8:41 AM EDT) Pathologist [facility] WBC 10.07 3.40 - 10.80 10*3/mm3 04/08/2025 11:02 AM EDT [facility] RBC 5.01 4.14 - 5.80 10*6/mm3 04/08/2025 11:02 AM [facility] Hemoglobin 14.0 13.0 - 17.7 g/dL 04/08/2025 11:02 AM [facility] Hematocrit 42.7 37.5 - 51.0 % 04/08/2025 11:02 AM [facility] MCV 85.2 79.0 - 97.0 fL 04/08/2025 11:02 AM [facility] MCH 27.9 26.6 - 33.0 pg 04/08/2025 11:02 AM [facility] MCHC 32.8 31.5 - 35.7 g/dL 04/08/2025 11:02 AM [facility] RDW 12.6 12.3 - 15.4 % 04/08/2025 11:02 AM [facility] RDW-SD 38.9 37.0 - 54.0 fl 04/08/2025 11:02 AM [facility] MPV 11.0 6.0 - 12.0 fL 04/08/2025 11:02 AM [facility] Platelets 118(L) 140 - 450 10*3/mm3 04/08/2025 11:02 AM [facility] Neutrophil % 85.1(H) 42.7 - 76.0 % 04/08/2025 11:02 AM [facility] Lymphocyte % 9.3(L) 19.6 - 45.3 % 04/08/2025 11:02 AM [facility] Monocyte % 4.6(L) 5.0 - 12.0 % 04/08/2025 11:02 AM [facility] Eosinophil % 0.3 0.3 - 6.2 % 04/08/2025 11:02 AM [facility] Basophil % 0.2 0.0 - 1.5 % 04/08/2025 11:02 AM [facility] Immature Grans % 0.5 0.0 - 0.5 % 04/08/2025 11:02 AM EDT [facility] R esult [facility]
[address] [place] [address], * (ABNORMAL) Basic Metabolic Panel (04/08/2025 8:41 [...] >60.0 mL/min/1.7 3 04/08/2025 9:51 AM EDT [facility] Blood Venipuncture / Unknown 04/08/2025 8:41 AM EDT 04/08/2025 9:09 AM EDT [facility] - 04/08/2025 9:51 AM EDT [...] nal Result [facility]
[address] [place] [address], [place] [phone] * Heparin Anti-Xa (04/08/2025 8:41 AM EDT) Heparin Anti-Xa (UFH) 0.33 0.30 - 0.70 IU/ml 04/08/2025 9:40 AM EDT [facility] Blood Venipuncture / Unknown 04/08/2025 8:41 AM EDT 04/08/2025 9:10 AM EDT us Sushil Dean Jr., MD LAB BLOOD ORDERABLES Fi nal Result Performing Organization Address [facility] Co de Phone Number [facility]
[address] [place] [address], * FL C Arm During Surgery (04/07/2025 9:32 PM EDT) Narrative SYSTEMGENERATED, DOCUMENTATION - 04/07/2025 9:38 PM EDT This procedure was auto-finalized with no dictation required. us Sushil Dean Jr., MD IMG FLUOROSCOPY ORDERAB LES Final Result * Wound Culture - Swab, Leg, Right (04/07/2025 9:14 PM EDT) Wound Culture No growth at 3 days ALIZA 04/11/2025 10:40 AM EDT [facility] Gram Stain Occasional WBCs [...] GENERAL ORDERABLES Final Result Performing Organization Address City/[facility]/ZIP Co de Phone Number [facility]
[address] [place] [address], [facility]
[address] [place] [address], * Anaerobic Culture - Swab, Leg, Right (04/07/2025 9:14 PM EDT) Anaerobic Culture No anaerobes isolated at 5 days ALIZA 04/13/2025 7:21 AM EDT [facility] Swab Structure of right lower limb / Unknown Collection / Unknown 04/07/2025 9:14 PM EDT 04/08/2025 4:36 AM EDT Sushil Dean Jr., MD MICROBIOLOGY - GENERAL ORDERABLES Final Result Performing Organization Address [facility]/ZIP Co de Phone Number [facility]
[address] [place] [address], * Anaerobic Culture - Tissue, Leg (04/07/2025 9:13 PM EDT) Anaerobic Culture No anaerobes isolated at 5 days ALIZA 04/13/2025 7:21 AM EDT [facility] Tissue Lower limb structure / Unknown Collection / Unknown 04/07/2025 9:13 PM EDT 04/08/2025 4:54 AM EDT Jason Álvarez DO MICROBIOLOGY - GENERAL ORDERABLE S Final Result [facility]
[address] [place] [address], * Tissue / Bone Culture - Tissue, Leg, Right (04/07/2025 9:13 PM EDT) Tissue Culture No growth at 3 days ALIZA 04/11/2025 10:36 AM EDT [facility] Gram Stain Rare (1+) WBCs seen 04/11/2025 10:36 AM EDT [facility] Gram Stain No organisms seen 04/11/2025 10:36 AM EDT [facility] Tissue Structure of right lower limb / Unknown 04/07/2025 9:13 PM EDT 04/08/2025 4:54 AM EDT Sushil Dean Jr., MD MICROBIOLOGY - GENERAL ORDERABLES Final Result [facility]
[address] [place] [address], [place] [phone] [facility]
[address] [place] [address], [place] [phone] * (ABNORMAL) Wound Culture - Swab, Leg, Right (04/07/2025 9:07 PM EDT) Wound Culture Light growth (2+) Staphylococcus aureus, MRSA(A) ALIZA 04/10/2025 10:38 AM EDT [facility] Comment: Methicillin resistant Staphylococcus [...] GENERAL ORDERABLES Final Result Performing Organization Address [facility] Co de Phone Number [facility]
[address] [place] [address], [facility]
[address] [place] [address], * Anaerobic Culture - Swab, Leg, Right (04/07/2025 9:07 PM EDT) [facility] Anaerobic Culture No anaerobes isolated at 5 days ALIZA 04/13/2025 7:21 AM EDT [facility] Swab Structure of right lower limb / Unknown Collection / Unknown 04/07/2025 9:07 PM EDT 04/08/2025 4:36 AM EDT Sushil Dean Jr., MD MICROBIOLOGY - GENERAL ORDERABLES Final Result Performing Organization Address [facility] Co de Phone Number [facility]
[address] [place] [address], * Heparin Anti-Xa (04/07/2025 9:10 AM EDT) [facility] Heparin Anti-Xa (UFH) 0.30 0.30 - 0.70 IU/ml 04/07/2025 10:12 AM EDT [facility] Blood Venipuncture / Unknown 04/07/2025 9:10 AM EDT 04/07/2025 9:38 AM EDT Una Perla PharmD LAB BLOOD ORDERABLES Final R esult Performing Organization Address [facility] Co de Phone Number [facility]
[address] [place] [address], * (ABNORMAL) CBC Auto Differential (04/07/2025 9:10 AM EDT) [facility] WBC 8.63 3.40 - 10.80 10*3/mm3 04/07/2025 9:50 AM EDT [facility] RBC 5.23 4.14 - 5.80 10*6/mm3 04/07/2025 9:50 AM EDT [facility] Hemoglobin 14.7 13.0 - 17.7 g/dL 04/07/2025 9:50 AM [facility] Hematocrit 44.8 37.5 - 51.0 % 04/07/2025 9:50 AM EDT [facility] MCV 85.7 79.0 - 97.0 fL 04/07/2025 9:50 AM EDT [facility] MCH 28.1 26.6 - 33.0 pg 04/07/2025 9:50 AM [facility] MCHC 32.8 31.5 - 35.7 g/dL 04/07/2025 9:50 AM [facility] RDW 12.8 12.3 - 15.4 % 04/07/2025 9:50 AM [facility] RDW-SD 39.9 37.0 - 54.0 fl 04/07/2025 9:50 AM [facility] MPV 10.8 6.0 - 12.0 fL 04/07/2025 9:50 AM [facility] Platelets 149 140 - 450 10*3/mm3 04/07/2025 9:50 AM [facility] Neutrophil % 66.7 42.7 - 76.0 % 04/07/2025 9:50 AM [facility] Lymphocyte % 20.5 19.6 - 45.3 % 04/07/2025 9:50 AM [facility] Monocyte % 9.8 5.0 - 12.0 % 04/07/2025 9:50 AM EDT [facility] Eosinophil % 2.1 0.3 - 6.2 % 04/07/2025 9:50 AM [facility] Basophil % 0.3 0.0 - 1.5 % 04/07/2025 9:50 AM EDT [facility] [...] Resul t [facility]
[address] [place] [address], * (ABNORMAL) Basic Metabolic Panel (04/07/2025 9:10 AM EDT) [facility] Signature Glucose 112(H) 65 - 99 mg/dL 04/07/2025 [...] 3.5 - 5.2 mmol/L 04/07/2025 10:19 AM T [facility] Comment:Specimen hemolyzed. Result may be falsely elevated. Chloride 105 98 - 107 mmol/L 04/07/2025 10:19 AM EDT [facility] CO2 24.8 22.0 - 29.0 mmol/L 04/07/2025 10:19 AM T [facility] Calcium 8.6 8.6 - 10.5 mg/dL 04/07/2025 10:19 AM [facility] BUN/Creatinine Ratio 17.0 7.0 - 25.0 04/07/2025 10:19 AM EDT [facility] Anion Gap 9.2 5.0 - 15.0 mmol/L 04/07/2025 10:19 AM [facility] eGFR 113.2 >60.0 mL/min/1.7 3 04/07/2025 10:19 AM [facility] Blood Venipuncture / Unknown 04/07/2025 9:10 AM EDT 04/07/2025 9:38 AM EDT [facility] - 04/07/2025 10:19 AM EDT GFR [...] ORDERABLES Final Resul t [facility]
[address] [place] [address], * MRI Tibia Fibula Right With & [...] [place] 04/07/2025 9:58 AM EDT Workstation ID: [id number] Narrative 04/07/2025 9:58 AM EDT MRI TIBIA [...] [place] 04/07/2025 9:58 AM EDT Workstation ID: [id number] us Sushil Dean Jr., MD IM MRI ORDERABLES Mary Beth l Result * Heparin Anti-Xa (04/07/2025 1:42 AM EDT) Heparin Anti-Xa (UFH) 0.38 0.30 - 0.70 IU/ml 04/07/2025 2:14 AM EDT [facility] Blood Venipuncture / Unknown 04/07/2025 1:42 AM EDT 04/07/2025 1:54 AM EDT Chelsie Velasquezprisca [facility] LAB BLOOD ORDERABLES Final R esult Performing Organization Address [facility] Co de Phone Number [facility]
[address] [place] [address], * Heparin Anti-Xa (04/06/2025 7:16 PM EDT) Pathologist [facility] Heparin Anti-Xa (UFH) 0.33 0.30 - 0.70 IU/ml 04/06/2025 7:50 PM EDT [facility] Blood Venipuncture / Unknown 04/06/2025 7:16 PM EDT 04/06/2025 7:35 PM EDT Cherri Beatty [facility] BLOOD ORDERABLES Final Res ult Performing Organization Address [facility] de Phone Number [facility]
[address] [place] [address], [place] [phone] * Potassium (04/06/2025 7:16 PM EDT) Pathologist [facility] Potassium 4.0 3.5 - 5.2 mmol/L 04/06/2025 7:53 PM EDT [facility] Blood Venipuncture / Unknown 04/06/2025 7:16 PM EDT 04/06/2025 7:35 PM EDT Jason Álvarez DO LAB BLOOD ORDERABLES Final Resul t [facility]
[address] [place] [address], * (ABNORMAL) Heparin Anti-Xa (04/06/2025 12:36 PM EDT) Heparin Anti-Xa (UFH) 0.24(L) 0.30 - 0.70 IU/ml 04/06/2025 1:23 PM EDT [facility] Blood Venipuncture / Unknown 04/06/2025 12:36 PM EDT 04/06/2025 1:07 PM EDT Una LundbergD LAB BLOOD ORDERABLES Final R esult Performing Organization Address City/[facility]/ZIP Co de Phone Number [facility]
[address] [place] [address], * (ABNORMAL) Heparin Anti-Xa (04/06/2025 3:42 AM EDT) Heparin Anti-Xa (UFH) 0.25(L) 0.30 - 0.70 IU/ml 04/06/2025 5:30 AM EDT [facility] Blood Venipuncture / Unknown 04/06/2025 3:42 AM EDT 04/06/2025 4:59 AM EDT Chelsie Turpin [facility] BLOOD ORDERABLES Final R esult [facility]
[address] [place] [address], * (ABNORMAL) Basic Metabolic Panel (04/06/2025 3:42 [...] 111.9 >60.0 mL/min/1.7 3 04/06/2025 5:59 AM T [facility] Blood Venipuncture / Unknown 04/06/2025 3:42 AM EDT 04/06/2025 5:20 AM EDT [facility] - 04/06/2025 5:59 AM EDT [...] Resul t [facility]
[address] [place] [address], * (ABNORMAL) CBC Auto Differential (04/06/2025 3:41 [...] 19.6 - 45.3 % 04/06/2025 5:[facility] Monocyte % 11.8 5.0 - 12.0 [...] Resul t [facility]
[address] [place] [address], * Heparin Anti-Xa (04/05/2025 8:43 PM EDT) Heparin Anti-Xa (UFH) 0.38 0.30 - 0.70 IU/ml 04/05/2025 9:09 PM EDT [facility] LABORATORY Blood Venipuncture / Unknown 04/05/2025 8:43 PM EDT 04/05/2025 8:55 PM EDT Cherri [facility] BLOOD ORDERABLES Final Res ult [facility]
[address] [place] [address], * CK (04/05/2025 12:15 PM EDT) Creatine Kinase 140 20 - 200 U/L 04/05/2025 1:31 PM EDT [facility] Blood Venipuncture / Unknown 04/05/2025 12:15 PM EDT 04/05/2025 1:03 PM EDT Carlton Mead MD LAB BLOOD ORDERABLES Final R esult [facility]
[address] [place] [address], * (ABNORMAL) Heparin Anti-Xa (04/05/2025 12:15 PM EDT) Heparin Anti-Xa (UFH) 0.17(L) 0.30 - 0.70 IU/ml 04/05/2025 1:21 PM EDT [facility] Blood Venipuncture / Unknown 04/05/2025 12:15 PM EDT 04/05/2025 1:04 PM EDT Una Perla PharmD LAB BLOOD ORDERABLES Final R esult Performing Organization Address [facility] Co de Phone Number [facility]
[address] [place] [address], * (ABNORMAL) aPTT (04/05/2025 3:54 AM EDT) [facility] PTT 35.3(L) 60.0 - 90.0 seconds 04/05/2025 4:31 AM EDT [facility] Blood Venipuncture / Unknown 04/05/2025 3:54 AM EDT 04/05/2025 4:15 AM EDT Narrative [facility] - 04/05/2025 4:31 AM EDT PTT = The equivalent PTT values for the therapeutic range of heparin levels at 0.3 to 0.5 U/ml are 60 to 70 seconds. us Una Perla PharmD LAB BLOOD ORDERABLES Final R esult Performing Organization Address [facility] Co de Phone Number [facility]
[address] [place] [address], * Heparin Anti-Xa (04/05/2025 3:54 AM EDT) [facility] Heparin Anti-Xa (UFH) 0.30 0.30 - 0.70 IU/ml 04/05/2025 4:32 AM EDT [facility] Blood Venipuncture / Unknown 04/05/2025 3:54 AM EDT 04/05/2025 4:15 AM EDT Una Minda PharmD LAB BLOOD ORDERABLES Final R esult Performing Organization Address [facility] Co de Phone Number [facility]
[address] [place] [address], [place] [phone] * (ABNORMAL) CBC Auto Differential (04/05/2025 3:54 AM EDT) WBC 11.18(H) 3.40 - 10.80 10*3/mm3 04/05/2025 4:[facility] RBC 5.00 4.14 - 5.80 10*6/mm3 04/05/2025 4:20 [facility] Hemoglobin 13.9 13.0 - 17.7 g/dL 04/05/2025 4:20 AM [facility] Hematocrit 42.4 37.5 - 51.0 % 04/05/2025 4:20 AM EDT [facility] MCV 84.8 79.0 - 97.0 fL 04/05/2025 4:20 [facility] MCH 27.8 26.6 - 33.0 pg 04/05/2025 4:20 AM [facility] MCHC 32.8 31.5 - 35.7 g/dL 04/05/2025 4:20 AM [facility] RDW 12.9 12.3 - 15.4 % 04/05/2025 4:20 AM [facility] RDW-SD 39.7 37.0 - 54.0 fl 04/05/2025 4:20 AM [facility] MPV 10.2 6.0 - 12.0 fL 04/05/2025 4:20 AM [facility] Platelets 160 140 - 450 10*3/mm3 04/05/2025 4:20 AM [facility] Neutrophil % 73.5 42.7 - 76.0 % 04/05/2025 4:20 AM [facility] Lymphocyte % 14.0(L) 19.6 - 45.3 % 04/05/2025 4:20 [facility] Monocyte % 11.0 5.0 - 12.0 [...] - 0.2 /100 WBC 04/05/2025 4:20 AM T [facility] Blood Venipuncture / Unknown 04/05/2025 3:54 AM EDT 04/05/2025 4:16 AM EDT Una Perla PharmD LAB BLOOD ORDERABLES Final R esult [facility]
[address] [place] [address], * (ABNORMAL) Basic Metabolic Panel (04/05/2025 3:54 AM EDT) Glucose 152(H) 65 - 99 mg/dL 04/05/2025 4:40 AM EDT [facility] BUN 17.3 6.0 - 20.0 mg/dL 04/05/2025 4:40 AM [facility] Creatinine 0.92 0.76 - 1.27 mg/dL 04/05/2025 4:40 AM T [facility] Sodium 136 136 - 145 mmol/L 04/05/2025 4:40 AM [facility] Potassium 3.9 3.5 - 5.2 mmol/L 04/05/2025 4:40 AM EDT [facility] Chloride 103 98 - 107 mmol/L 04/05/2025 4:40 AM T [facility] CO2 24.0 22.0 - 29.0 mmol/L 04/05/2025 4:40 AM [facility] Calcium 7.8(L) 8.6 - 10.5 mg/dL 04/05/2025 4:40 AM [facility] BUN/Creatinine Ratio 18.8 7.0 - 25.0 04/05/2025 4:40 AM T [facility] Anion Gap 9.0 5.0 - 15.0 mmol/L 04/05/2025 4:40 AM [facility] eGFR 105.2 >60.0 mL/min/1.7 3 04/05/2025 4:40 AM [facility] Blood Venipuncture / Unknown 04/05/2025 3:54 AM EDT 04/05/2025 4:15 AM EDT [facility] - 04/05/2025 4:40 AM EDT [...] ORDERABLES Final Re sult Performing Organization Address [facility]/ZIP Co de Phone Number [facility]
[address] [place] [address], * (ABNORMAL) aPTT (04/05/2025 12:18 AM EDT) [...] ORDERABLES Final R esult Performing Organization Address [facility] Co de Phone Number [facility]
[address] [place] [address], * (ABNORMAL) Protime-INR (04/05/2025 12:18 AM EDT) Protime 15.9(H) 12.2 - 15.3 Seconds 04/05/2025 12:53 AM EDT [facility] INR 1.19(H) 0.89 - 1.12 04/05/2025 12:53 AM EDT [facility] Blood Venipuncture / Unknown 04/05/2025 12:18 AM EDT 04/05/2025 12:37 AM EDT Una Perla PharmD LAB BLOOD ORDERABLES Final R esult Performing Organization Address City/[facility]/ZIP Co de Phone Number [facility]
[address] [place] [address], * Heparin Anti-Xa (04/05/2025 12:18 AM EDT) Heparin Anti-Xa (UFH) 0.39 0.30 - 0.70 IU/ml 04/05/2025 12:54 AM EDT [facility] Blood Venipuncture / Unknown 04/05/2025 12:18 AM EDT 04/05/2025 12:37 AM EDT Una Perla PharmD LAB BLOOD ORDERABLES Final R esult [facility]
[address] [id number], * MRI Tibia Fibula Right With & [...] MD 04/04/2025 11:00 PM EDT Workstation ID: [id number] Narrative 04/04/2025 11:00 PM EDT MRI TIBIA [...] MD 04/04/2025 11:00 PM EDT Workstation ID: [id number] Leonora Shepherd MD IMG MRI ORDERABLES Final Resu lt * POC Creatinine (04/04/2025 2:49 PM EDT) [facility] Creatinine 1.10 0.60 - 1.30 mg/dL 04/07/2025 7:14 PM EDT [facility] Comment:Serial Number: [id number] Venous Blood 04/04/2025 2:49 PM EDT 04/07/2025 7:14 PM EDT Jason Álvarez DO POINT OF CARE TEST ORDERABLES Fi nal Result [facility] [place] [address], * (ABNORMAL) CBC Auto Differential (04/04/2025 2:47 PM EDT) [facility] WBC 12.72(H) 3.40 - 10.80 10*3/mm3 [...] Crowley LAB BLOOD ORDERABLES Fin al Result [facility]
[address] [place] [address], * (ABNORMAL) C-reactive Protein (04/04/2025 2:47 PM EDT) C-Reactive Protein 8.57(H) 0.00 - 0.50 mg/dL 04/04/2025 3:26 PM EDT [facility] Blood Venipuncture / Unknown 04/04/2025 2:47 PM EDT 04/04/2025 2:52 PM EDT Mario Crowley LAB BLOOD ORDERABLES Fin al Result [facility]
[address] [place] [address], * (ABNORMAL) Sedimentation Rate (04/04/2025 2:47 PM EDT) Sed Rate 51(H) 0 - 15 mm/hr 04/04/2025 3:06 PM EDT [facility] Blood Venipuncture / Unknown 04/04/2025 2:47 PM EDT 04/04/2025 2:52 PM EDT Mario Crowley DO LAB BLOOD ORDERABLES Fin al Result [facility]
[address] [place] [address], * Comprehensive Metabolic Panel (04/04/2025 2:47 PM EDT) Glucose 90 65 - 99 mg/dL 04/04/2025 [...] 2:47 PM EDT 04/04/2025 2:52 PM EDT [facility] - 04/04/2025 3:26 PM EDT [...] al Result [facility]
[address] [place] [address], documented in this encounter Visit Diagnoses Diagnosis [...] anticoagulation 1111 (Given - Provider: Shirley Hart, RN)2030 (Given - Provider: Alberto Dillon, RN) 100 (Given - Provider: Marguerite Wakefield [...] pharmacy in ziplock bag for proper disposal. 830 (Given - Provider: Amber Salazar, PROFESSOR OF CHEMISTRY)1943 (Given - Provider: Anahy Marcelino, KELL)2129 (Canceled Entry - Provider: Anahy Marcelino RRT - Comment: previously given) 0837 (Given - Provider: Amber Salazar, KELL)2006 (Given - Provider: Loree Reese, KELL)2129 (Canceled Entry - Provider: Loree Reese RRT) 1037 (Given - Provider: Leonora Chen RRT) cefTRIAXone (ROCEPHIN) 2,000 mg in sodium chloride 0.9 % 100 mL MBP (CANCELED) 2,000 mg, Intravenous, at 200 mL/hr, Administer over 30 Minutes, Every 24 Hours, First dose on Mon04/05/25 at 2000, For 11 doses, LR should be paused and flushing of the line with NS is recommended prior to and after completion of ceftriaxone infusion due to incompatibility. Do not co-adminster with calcium-containing solutions. Caution: Look alike/sound alike drug alert, Indications: Bone and/or Joint Infection, Skin and Soft Tissue Infection 2026 (New Bag - Provider: Alberto Dillon, RN) clotrimazole-betamethason e (LOTRISONE) 1-0.05 % cream [...] Infection 0907 (New Bag - Provider: Shirley Hart, LU) 0907 (New Bag - Provider: Shirley Hart, RN) [...] RN)2026 (Given - Provider: Alberto Dillon, LU) 905 (Given - Provider: Shirley Hart, RN)2030 (Given - Provider: Alberto Dillon, RN) 100 [...] Swallow whole. 2026 (Given - Provider: Alberto Dillon, LU) 2030 (Given - Provider: Alberto Dillon, LU) saccharomyces boulardii (FLORASTOR) capsule 250 mg 250 [...] Continuous Medication Order 04/09/2025 04/10/2025 04/11/2025 heparin 93931 units/250 mL (100 units/mL) in 0.45 % [...] Bob Rosenberg RN)1006 (Given - Provider: Shirley Hart RN)1220 (Given - Provider: Shirley Hart, RN)1438 (Given - Provider: Shirley Hart, RN)1628 (Given - Provider: Shirley Hart, LU)1815 (Given - Provider: Shirley Hart, RN)2033 (Given - Provider: Alberto Dillon, RN)2245 (Given - Provider: Alberto Dillon, RN) 0109 (Given - Provider: Alberto Dillon, RN)0655 (Given - Provider: Alberto Dillon, RN)1414 (Given - Provider: Shirley Hart, RN)2123 (Given - Provider: Alberto Dillon, RN) 1003 (Given - Provider: Marguerite Wakefield, [...] documented as of this encounter Care Teams Mess Attendant Relationship Specialty Start Date End Date Provider, [place] [address] PCP - General 05/09/23 documented as of this encounter
--- OUTSIDE RECORDS SUMMARY | 2025-04-07 20:36 | XMS_ITS | Encounter Summary ---
Author Organization [facility] Address [address] [place] [address] Care Team Providers Care Records Management Clerk Name Role Phone Provider, No Known Primary Care Provider Unavail able Reason for Visit * Auth/Cert Specialty Diagnoses / Procedures Referred By Bulmaro muniz Referred To Contact Diagnoses Right BKA infection Referral ID Status Reason Start Date Expiration Date Visits Re quested Visits Authorized [id number] 1 1 Encounter Details Date Type Department Care Team (Late st Contact Info) Description 04/07/2025 8:36 PM EDT Anesthesia Event [facility] OR [address] [place] [address] Luci Alonso DO [address] [place] [address] Anesthesia Record Procedure Summary Procedure Name Responsible [...] by Mary Newell RN 04/09/25 1000 by Shilrey Hart RN Wound 04/07/25; N; Right; lateral; [...] e alcohol) [facility] Utilities Answer Date Recorded In the past 12 months has [employer], gas, oil, or water [employer] threatened to shut off services in your [...] or training? Not on file Preferred Language Latvian 04/07/2025 Sex and Gender Information Value Date [...] PACU on O2NC, breathing comfortably. Report to SPINNING BATH PERSON at bedside. VSS. * Anesthesia Procedure Notes [...] intubation * Anesthesia Preprocedure Evaluation - Luci lAonso DO - 04/07/2025 3:10 PM EDT Anesthesia [...] Musculoskeletal Abdominal Substance History - negative use FILM NUMBERER Other ROS/Med Hx Other: Eliquis 04/04/25 Hgb 14.7 k 43.2 Factor 2 on eliquis +gerd Anesthesia Plan ASA 3 - emergent general Rapid sequence (Risks and benefits of general anesthesia discussed with patient (including [place], CVA, , recall,aspiration, oropharyngeal/dental damage), questions answered, agreeable to proceed. ) intravenous induction Anesthetic plan, risks, benefits, and alternatives have been provided, discussed and informed consent has been obtained with: patient. Plan discussed with ADULT BASIC STUDIES TEACHER. CODE STATUS: Code Status (Patient has no [...] documented as of this encounter Care Teams Records Management Clerk Relationship Specialty Start Date End Date Provider, No Known [facility] [place] [address] PCP - General 05/09/23 documented as of this encounter
--- OUTSIDE RECORDS SUMMARY | 2025-04-08 14:45 | XMS_ITS | Encounter Summary ---
Author Organization [facility] Address [address] [place] [address] Care Team Providers Care Restaurant Crew Person Name Role Phone Provider, No Known Primary Care Provider Unavail able Reason for Visit * Reason Comments Leg Swelling * Auth/Cert Specialty Diagnoses / Procedures Referred By Contac t Referred To Contact Diagnoses Right BKA infection Referral ID Status Reason Start Date Expiration Date Visits Re quested Visits Authorized [id number] 1 1 Encounter Details Date Type Department Care Team (Late st Contact Info) Description 04/08/2025 2:45 PM EDT - 04/08/2025 4:04 PM EDT Surgery [facility] OR [address] [place] [address] Sushil Dean Jr., MD [address] [place] [address] [address] [id number] LEG DEBRIDEMENT AND IRRIGATION Social History Tobacco Use Types Packs/Day Years Used Date Smoking Tobacco: Never Smokeless Tobacco: Never Tobacco Cessation:Counseling Given: Not Answered Alcohol Use Standard Drinks/Week Comments Not Currently 0 (1 standard drink = 0.6 oz pur e alcohol) [facility] Utilities Answer Date Recorded In the past 12 months has [employer] electric, gas, oil, or water company threatened [...] or training? Not on file Preferred Language Cape Verdean 04/07/2025 Sex and Gender Information Value Date [...] 2:25 PM EDT Cherri Grimm RN * [place] Suicide Severity Rating Scale (Screener/Recent Self-Report) Question [...] Hospital Medicine Services DISCHARGE SUMMARY Patient Name: Wno Dennis : 1980 Date [...] Date/Time Wound Culture - Swab, Leg, Right [[id number]] (Abnormal) (Susceptibility) Collected: 04/07/252106 Lab Status: Final [...] Units Date/Time FL C Arm During Surgery [[id number]] Resulted: 04/07/252137 Updated: 04/07/252137 Narrative: This procedure was auto-finalized with no dictation required. MRI Tibia Fibula Right With & Without Contrast [[id number]] Collected: 04/07/25 0938 Updated: 04/07/25 1001 Narrative: [...] Buenrostro 04/07/2025 9:58 AM EDT Workstation ID: [id number] MRI Tibia Fibula Right With & Without Contrast [[id number]] Collected: 04/04/252256 Updated: 04/04/252302 Narrative: MRI TIBIA [...] represent a small area of phlegmonous change (xlhixo41 image 10) measuring approximately 1.6 cm which [...] MD 04/04/2025 11:00 PM EDT Workstation ID: [id number] Pending Labs Order Current Status Fungus Culture [...] have reviewed this documentation and agree. * Omra Zavala RN - 04/10/2025 4:29 PM EDT Images from the original note were not included. Won Dennis (44 y.o. Male) Date of 1980 Social Security Number [id number] [place] [address] [place] [address] Restorationism Unknown Marital Status Unknown Admission Date 04/04/2025 Admission Type Emergency Admitting Provider Jadyn Richardson DO Attending Provider Jadyn Richardson DO Department, Room/Bed [facility] 5G, S565/1 Discharge Date Discharge Disposition Discharge Destination Attending Provider: Jadyn Richardson DO Allergies: Ceftin [Cefuroxime], Keflex [Cephalexin], Latex Isolation: None Infection: MRSA (05/11/23) Code Status: CPR Ht: 180.3 cm (71 ) Wt: 134 kg (295 lb) Admission Cmt: None 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 Insurance as of 04/04/2025 Primary Coverage Payor Plan Insurance Group Employer/Plan Group [place] [id number] Payor Plan Address Payor Plan Phone Number Payor Plan Fax Number Effective Dates [employer] [address] [address] 08/10/2023 - None Entered [facility] [address] Subscriber Name Subscriber Date Member ID WON DENNIS 1980 [id number] Emergency Contacts Coke Oven Mason (Rel.) Home Phone Work Phone Mobile Phone Avril Dennis (Spouse) -- -- [phone] Robert Hackett (Relative) -- -- [phone] [facility] 5G [address] [facility] [address] Patient: ROOM: [facility] [place] Won Dennis [address] [facility] [place] [address] : 1980 SSN: [id number] Sex: M PCP: Provider, No Known Emergency Contact Information Name Relation Home Work Mobile Avril Dennis Spouse [phone] Other Contacts Name Relation Home Work Mobile Robert Hackett Relative [phone] INSURANCE PAYOR PLAN [employer] # SUBSCRIBER ID Primary: Secondary: MEDICARE [place] [id number] Admitting Diagnosis: 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 He is known to Dr. [...] Jr., MD, 20 mg at 04/09/25906 heparin 32852 units/250 mL (100 units/mL) in 0.45 % [...] vancomycin 2750 mg/500 mL 0.9% NS IVPB ([facility]) Ordering Provider: Mario Crowley, DO [...] Units Date/Time FL C Arm During Surgery [[id number]] Resulted: 04/07/252137 Updated: 04/07/252137 Narrative: This procedure was auto-finalized with no dictation required. MRI Tibia Fibula Right With & Without Contrast [[id number]] Collected: 04/07/2538 Updated: 04/07/25 1001 Narrative: MRI [...] Buenrostro 04/07/2025 9:58 AM EDT Workstation ID: [id number] Impression: Recurrent Right BKA stump abscess/cellulitis- this [...] 04/10/251323 Creation Time: 04/10/251323 Signed Expand All [facility] Medicine Services PROGRESS NOTE Patient Name: [...] Date/Time Wound Culture - Swab, Leg, Right [[id number]] (Abnormal) (Susceptibility) Collected: 04/07/252106 Lab Status: Final [...] Row Name 04/06/25 1143 Sit-Stand Transfer Sit-Stand Ransom (Transfers) modified independence - Comment, (Sit-Stand Transfer) Pt stood from recliner. Not holding onto walker, pt able to pull his pants up while balancing on his one leg. -LM Row Name 04/06/25 1143 Gait/Stairs (Locomotion) Ransom Level (Gait) modified independence - Distance in [...] Nurse Physical Therapy Education Title: PT OT [employer] Therapies (Done) Topic: Physical Therapy (Done) Point: Mobility training (Done) Learning Progress Summary Patient Acceptance, E, VU,DU by at 04/06/2025 1147 Point: Precautions (Done) Learning Progress Summary Patient Acceptance, E, VU,DU by at 04/06/2025 1147 User Cabrera Initials Effective Dates Name Provider Type [facility] 01/24/25 - Susan Cavazos, PT Physical [...] Description Service Date Service Provider Modifiers Qty [id number] PT EVAL LOW COMPLEXITY 3 04/06/2025 Susan [...] Date/Time Wound Culture - Swab, Leg, Right [[id number]] (Abnormal) (Susceptibility) Collected: 04/07/252106 Lab Status: Final [...] INFECTIOUS DISEASE Progress Note Won Dennis 1980 [id number] Date of Consult: 04/10/2025 Admission Date: 04/04/2025 [...] which prompted him to seek treatment at [facility]. He is known to Dr. [...] IRRIGATION; Surgeon: Sushil Dean Jr., MD; Location: [facility] OR; Service: Orthopedics; Laterality: Right; PLACEMENT OF [...] Jr., MD, 20 mg at 04/09/25906 heparin 42556 units/250 mL (100 units/mL) in 0.45 % [...] tablet 10 mg, 10 mg, Oral, Nightly, uSshil Dean Jr., MD, 10mg at 04/09/252026 oxyCODONE-acetaminophen [...] Units Date/Time FL C Arm During Surgery [[id number]] Resulted: 04/07/252137 Updated: 04/07/252137 Narrative: This procedure was auto-finalized with no dictation required. MRI Tibia Fibula Right With & Without Contrast [[id number]] Collected: 04/07/25 0938 Updated: 04/07/25 1001 Narrative: [...] Chitra 04/07/2025 9:58 AM EDT Workstation ID: [id number] Impression: Recurrent Right BKA stump abscess/cellulitis- this [...] 04/10/2025 07:38 EDT * Larisa Hamilton, [facility] - 04/10/2025 7:17 AM EDT [...] 0500 0.30 11 -- -- 11 1200 [facility] 04/05 1215 0.17 11 1999 +3 [...] Date/Time Wound Culture - Swab, Leg, Right [[id number]] (Abnormal) Collected: 04/07/252106 Lab Status: Preliminary result [...] Patient Jason Álvarez DO 04/09/25 * Larisa aHmilton, [facility] - 04/09/2025 11:36 AM EDT [...] 0500 0.30 11 -- -- 11 1200 [facility] 04/05 1215 0.17 11 1999 +3 [...] INFECTIOUS DISEASE Progress Note Won Dennis 1980 [id number] Date of Consult: 04/09/2025 Admission Date: 04/04/2025 [...] which prompted him to seek treatment at [facility]. He is known to Dr. [...] Surgeon: Sushil Dean Jr., MD; Location: [facility]; Service: Orthopedics; Laterality: Right; PLACEMENT OF WOUND VAC Right 04/07/2025 Procedure: WOUND VACUUM ASSISTED CLOSURE; Surgeon: Sushil Dean Jr., MD; Location: [facility]; Service: Orthopedics; Laterality: Right; History reviewed. [...] MD, 20 mg at 04/08/25 0800 heparin 99646 units/250 mL (100 units/mL) in 0.45 % [...] Units Date/Time FL C Arm During Surgery [[id number]] Resulted: 04/07/252137 Updated: 04/07/252137 Narrative: This procedure was auto-finalized with no dictation required. MRI Tibia Fibula Right With & Without Contrast [[id number]] Collected: 04/07/25937 Updated: 04/07/25 1001 Narrative: MRI [...] Chitra 04/07/2025 9:58 AM EDT Workstation ID: [id number] Impression: Recurrent Right BKA stump abscess/cellulitis- this [...] Buenrostro 04/07/2025 9:58 AM EDT Workstation ID: [id number] I have personally reviewed the therapy plans: [...] DO Preeti 04/08/25 * Larisa Hamilton, [facility] - 04/08/2025 11:48 AM EDT [...] INFECTIOUS DISEASE Progress Note Won Dennis 1980 [id number] Date of Consult: 04/08/2025 Admission Date: 04/04/2025 [...] which prompted him to seek treatment at [facility]. He is known to Dr. [...] Sushil Dean Jr., MD; Location: [facility] OR; Service: Orthopedics; Laterality: Right; PLACEMENT [...] Jr., MD, 20 mg at 04/07/25950 heparin 92306 units/250 mL (100 units/mL) in 0.45 % [...] Units Date/Time FL C Arm During Surgery [[id number]] Resulted: 04/07/252137 Updated: 04/07/252137 Narrative: This procedure was auto-finalized with no dictation required. MRI Tibia Fibula Right With & Without Contrast [[id number]] Collected: 04/07/25 0938 Updated: 04/07/25 1001 Narrative: [...] Buenrostro 04/07/2025 9:58 AM EDT Workstation ID: [id number] Impression: Right BKA stump cellulitis- s/p BKA with multiple surgical interventions with Known MRSA 05/09/2025. (Treated by ID in [place] Dr. Harris). Dr. Torres treated him with [...] Buenrostro 04/07/2025 9:58 AM EDT Workstation ID: [id number] I have personally reviewed the therapy plans: [...] 18 Units/kg/hr, Last Rate: 18 Units/kg/hr (04/07/25 7688) Pharmacy to Dose Heparin, PRN Meds:. acetaminophen [...] Álvarez DO 04/07/25 * Larisa Hamilton [facility] - 04/07/2025 11:56 AM EDT [...] INFECTIOUS DISEASE Progress Note Won Dennis 1980 [id number] Date of Consult: 04/07/2025 Admission Date: 04/04/2025 [...] which prompted him to seek treatment at [facility]. He is known to Dr. [...] Application, 1 Application, Topical, Q12H, Ayah Valentin, FUR FEEDER, 1 Application at 04/06/252101 DAPTOmycin (CUBICIN) 800 [...] MD, 20 mg at 04/06/25 0900 heparin 70897 units/250 mL (100 units/mL) in 0.45 % NaCl infusion, 18 Units/kg/hr, Intravenous, Titrated, Cherri Beatty, [facility], Last Rate: 24.1 mL/hr at 04/07/25217, [...] , Not Applicable, Continuous JACKSON, Una Perla, aJsbir Phosphorus Replacement - Follow Nurse / BPA [...] With & Without Contrast - In process [[id number]] Resulted: 04/07/25828 Updated: 04/07/25828 This result has not been signed. Information might be incomplete. MRI Tibia Fibula Right With & Without Contrast [[id number]] Collected: 04/04/252256 Updated: 04/04/252302 Narrative: MRI TIBIA [...] represent a small area of phlegmonous change ([id number] image 10) measuring approximately 1.6 cm which [...] MD 04/04/2025 11:00 PM EDT Workstation ID: [id number] Impression: Right BKA stump cellulitis- s/p BKA with multiple surgical interventions with Known MRSA 05/09/2025. (Treated by ID in [place] Dr. Harris). Dr. Torres treated him with [...] mg Daily 04/05/2025 -- Route: Oral heparin 56119 units/250 mL (100 units/mL) in 0.45 % [...] -- Admin Instructions: Open Order & Select [facility] Electrolyte Replacement Protocol Algorithm to [...] -- Admin Instructions: Open Order & Select [facility] Electrolyte Replacement Protocol Algorithm to [...] 04/07/25 06:07 EDT * Cherri Beatty [facility] - 04/06/2025 1:47 PM EDT [...] 0500 0.30 11 -- -- 11 1200 [facility] 04/05 1215 0.17 11 1999 +3 14 2100 DW RN Pump checked 04/05 2043 0.38 14 -- -- [address] [facility] 04/06 0530 0.25 14 -- +2 16 1200 LU Mary 04/06 1236 0.24 16 -- +2 18 1999 LU Beatty [facility] 04/06/2025 13:48 EDT * Jason Álvarez [...] MD 04/04/2025 11:00 PM EDT Workstation ID: [id number] I have personally reviewed the therapy plans: [...] mg Daily 04/05/2025 -- Route: Oral heparin 41329 units/250 mL (100 units/mL) in 0.45 % [...] INFECTIOUS DISEASE follow up. Won Dennis 1980 [id number] Date of Consult: 04/06/2025 Admission Date: 04/04/2025 [...] which prompted him to seek treatment at [facility]. He is known to Dr. [...] 1 Application, 1 Application, Topical, Q12H, Ayah Valetnin APRN, 1 Application at 04/06/25 0859 DAPTOmycin [...] tablet 20 mg, 20 mg, Oral, Daily, Loenora Shepherd MD, 20 mg at 04/06/25 0900 heparin 41056 units/250 mL (100 units/mL) in 0.45 % NaCl infusion, 18 Units/kg/hr, Intravenous, Titrated, Cherri Beatty [facility], Last Rate: 24.1 mL/hr at [...] Tibia Fibula Right With & Without Contrast [[id number]] Collected: 04/04/252256 Updated: 04/04/252302 Narrative: MRI TIBIA [...] represent a small area of phlegmonous change (ugdpvs30 image 10) measuring approximately 1.6 cm which [...] MD 04/04/2025 11:00 PM EDT Workstation ID: [id number] Impression: Right BKA stump cellulitis- s/p BKA with multiple surgical interventions with Known MRSA 05/09/2025. (Treated by ID in [place] Dr. Harris). Dr. Torres treated him with [...] 04/06/2025 16:00 EDT * Cherri Beatty, [facility] - 04/05/2025 3:01 PM EDT [...] MD 04/04/2025 11:00 PM EDT Workstation ID: [id number] I have personally reviewed the therapy plans: [...] MD 04/04/2025 11:00 PM EDT Workstation ID: [id number] Assessment & Plan Assessment & Plan Won [...] SURGERY [facility], [facility] [address] [address] Orthopedic Consult Patient: Won Dennis Date of Admission: 04/04/2025 4:10 PM Date of : 1980 Attending Physician: Jason Álvarez DO Consulting Physician: Sushil Dean Jr, MD Chief Complaint: 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 [...] was evaluated in the emergency department in [place], was discharged with instructions for follow-up. He [...] by mouth Daily. 04/03/2025 Morning Lactobacillus-Inulin ([facility] Gluten [employer] [facility]) capsule Take 200 mg by mouth Daily. [...] MD 04/04/2025 11:00 PM EDT Workstation ID: [id number] Assessment: Right BKA infection 44-year-old male with [...] DISEASE CONSULT/INITIAL HOSPITAL VISIT Won Dennis 1980 [id number] Date of Consult: 04/05/2025 Admission Date: 04/04/2025 [...] which prompted him to seek treatment at [facility]. He is known to Dr. Daen. He denies recent antibiotics. He has an [...] MD, 20 mg at 04/05/25 0916 heparin 10557 units/250 mL (100 units/mL) in 0.45 % [...] Tibia Fibula Right With & Without Contrast [[id number]] Collected: 04/04/252256 Updated: 04/04/252302 Narrative: MRI TIBIA [...] represent a small area of phlegmonous change (ugstzl12 image 10) measuring approximately 1.6 cm which [...] MD 04/04/2025 11:00 PM EDT Workstation ID: [id number] Impression: Right BKA stump cellulitis- s/p BKA with multiple surgical interventions with Known MRSA 05/09/2025. (Treated by ID in [place] Dr. Harris). Dr. Torres treated him with [...] infection POSTOP DIAGNOSIS: Same. PROCEDURE: Right Right 03353: Secondary closure below-knee amputation SURGEON: Sushil Dean MD OPERATIVE TEAM: Senior Technical Specialist: Susi Grullon RN Scrub Person: Mary Paredes Scrub Person Extra: Hortencia Toriboi Other: Katt Gotti RN; Charis Neville RN ANESTHETIST: Anesthesiologist: Ulises Hoffman MD ORGANIC CHEMIST: Stan Casillas CRNA Student Nurse Associate Manager: Karol Albert SRNA ANESTHESIA: Choice ESTIMATED [...] CULTURE (Canceled) Sushil Dean Jr., MD 04/08/25 9687 Description: RIGHT LEG DEEP WOUND FOR CULTURE [...] [facility] [address] [facility] 250 OPERATIVE REPORT PATIENT NAME: Won Dennis DATE OF : 1980 PREOP DIAGNOSIS: Right Right below knee amputation stump infection POSTOP DIAGNOSIS: Same. PROCEDURE: Right Right 03452: Incision and drainage of surgical site infection 76348: Debridement of skin, subcutaneous tissue, muscle 92991: Wound vacuum-assisted closure SURGEON: Sushil Dean MD OPERATIVE TEAM: Senior Technical Specialist: Anum Sanchez RN Scrub Person: Hortencia Toribio; Gerald Ivey WATCHMAKER APPRENTICE: Anesthesiologist: Luci Alonso DO ANESTHESIA: General ESTIMATED [...] ago swellling of the area. seen at [facility] yesterday for CT and US, [...] this chart in the absence of a refractory specialist. No orders to display RADIOLOGY: [x] Radiologist's [...] is discharging home with outpatient infusion at [facility]. He has an appointment with [facility] at 8:00 am tomorrow. They will do PICC line dressing changes. CM has spoke with Dena at [facility] today multiple times to get [...] with KELLEE and given themhis Medicare number [id number], she sent it to Admission. CM spoke with Kerri, with [facility], and explained that he had Medicare A and B. However, it will not cover home infusion. It will be $64.00 a day out of packet. Patients can go to the Infusion center at [facility], and it will cover the cost as an outpatient. He will need to go there every day for infusion. They will be able to do the patients' PICC line dressing changes and lab work. CM called [facility] infusion center they can accept patient and start him. He is known for their facility. The Facility will need to run it through his insurance first. CM faxed the orders over to [facility] at [phone]. CM will follow up with them tomorrow at [facility] to make sure they received the [...] with patient at bedside today. Wheelchair from [facility] is at bedside. Patient getting PICC line [...] note were not included. Discharge Planning Assessment [facility] Patient Name: Won Dennis Today's [...] family Patient/Family Anticipated Services at Transition casework managercommunity marketing manager Anticipated family or friend will provide Discharge Needs Assessment Equipment Currently Used at Home glucometer;shower chair;pulse ox;bp cuff;prosthesis;crutches Equipment Needed After Discharge none Discharge Plan Row Name 04/07/25 1144 Plan Plan Home Patient/Family in Agreement with Plan yes Plan Comments CM spoke with patient at bedside today. Patient lives with and his [address] kids [place] [place]. 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 He has walker, cane, shower chair, and crutches. He requested a wheelchair for home. CM will order wheelchair through [employer]. He is not current with home health services. PCP is Dr. Jordan. Insurance is [employer] [place]. Patient discharge plan is home with priavte transport. CM will follow for any discharge needs. Final Discharge Disposition Code 01 - home or self-care Continued Care and Services - Admitted Since 04/04/2025 No active coordination exists. Demographic Summary Row Name 04/07/25 1143 General Information Arrived From hospital Preferred Language Cape Verdean Functional Status Row Name 04/07/25 1143 Functional [...] Differential (04/11/2025 3:40 AM EDT) [facility] WBC 7.87 3.40 - 10.80 10*3/mm3 04/11/2025 4:02 AM EDT [facility] RBC 4.70 4.14 - 5.80 10*6/mm3 04/11/2025 4:02 AM EDT [facility] Hemoglobin 12.8(L) 13.0 - 17.7 g/dL 04/11/2025 4:02 AM EDT [facility] Hematocrit 40.5 37.5 - 51.0 % 04/11/2025 4:02 AM EDT [facility] MCV 86.2 79.0 - 97.0 fL 04/11/2025 4:02 AM EDT [facility] MCH 27.2 26.6 - 33.0 pg 04/11/2025 4:02 AM EDT [facility] MCHC 31.6 31.5 - 35.7 g/dL 04/11/2025 4:02 AM EDT [facility] RDW 12.9 12.3 - 15.4 % 04/11/2025 4:02 AM EDT [facility] RDW-SD 40.5 37.0 - 54.0 fl 04/11/2025 4:02 AM EDT [facility] MPV 9.2 6.0 - [...] 0.0 - 1.5 % 04/11/2025 4:02 AM [facility] Immature Grans % 0.4 0.0 - 0.5 % 04/11/2025 4:02 AM [facility] Neutrophils, Absolute 4.69 1.70 - 7.00 10*3/mm3 04/11/2025 4:02 AM [facility] Lymphocytes, Absolute 2.07 0.70 - 3.10 10*3/mm3 04/11/2025 4:02 AM [facility] Monocytes, Absolute 0.73 0.10 - 0.90 10*3/mm3 04/11/2025 4:02 AM [facility] Eosinophils, Absolute 0.32 0.00 - 0.40 10*3/mm3 04/11/2025 4:02 AM [facility] Basophils, Absolute 0.03 0.00 - 0.20 10*3/mm3 04/11/2025 4:02 AM [facility] Immature Grans, Absolute 0.03 0.00 - 0.05 10*3/mm3 04/11/2025 4:02 AM [facility] nRBC 0.0 0.0 - 0.2 /100 WBC 04/11/2025 4:02 AM [facility] Blood Venipuncture / Unknown 04/11/2025 3:40 AM EDT 04/11/2025 3:59 AM EDT Sushil Dean Jr., MD LAB BLOOD ORDERABLES Fi nal Result [facility]
[address] [place] [address], * (ABNORMAL) Comprehensive Metabolic Panel (04/11/2025 3:40 AM EDT) Glucose 108(H) 65 - 99 mg/dL 04/11/2025 4:19 AM EDT [facility] BUN 12.5 6.0 - 20.0 mg/dL 04/11/2025 4:19 AM EDT [facility] Creatinine 0.68(L) 0.76 - 1.27 mg/dL 04/11/2025 4:19 AM EDT [facility] Sodium 140 136 - 145 mmol/L 04/11/2025 4:19 AM EDT [facility] Potassium 3.8 3.5 - 5.2 mmol/L 04/11/2025 4:19 AM EDT [facility] Chloride 105 98 - 107 mmol/L 04/11/2025 4:19 AM EDT [facility] CO2 28.2 22.0 - 29.0 mmol/L 04/11/2025 4:19 AM EDT [facility] Calcium 8.2(L) 8.6 - 10.5 mg/dL 04/11/2025 4:19 AM EDT [facility] Total Protein 6.1 6.0 - 8.5 g/dL 04/11/2025 4:19 AM EDT [facility] Albumin 3.1(L) 3.5 - 5.2 g/dL 04/11/2025 4:19 AM EDT [facility] ALT (SGPT) 52(H) 1 - 41 U/L 04/11/2025 4:19 AM EDT [facility] AST (SGOT) 40 1 - 40 U/L 04/11/2025 4:19 AM EDT [facility] Alkaline Phosphatase 99 39 - 117 U/L 04/11/2025 4:19 AM EDT [facility] Total Bilirubin 0.2 0.0 - 1.2 mg/dL 04/11/2025 4:19 AM EDT [facility] Globulin 3.0 gm/dL 04/11/2025 4:19 AM EDT [facility] Comment:Calculated Result A/G Ratio 1.0 g/dL 04/11/2025 4:19 AM EDT [facility] BUN/Creatinine Ratio 18.4 7.0 - 25.0 04/11/2025 4:19 AM EDT [facility] Anion Gap 6.8 5.0 - 15.0 mmol/L 04/11/2025 4:19 AM EDT [facility] eGFR 117.5 >60.0 mL/min/1.7 3 04/11/2025 4:19 AM T [facility] Blood Venipuncture / Unknown [...] Hill APRN LAB BLOOD ORDERABLES Final Result [facility]
[address] [place] [address], * (ABNORMAL) CBC Auto Differential (04/10/2025 3:46 AM EDT) [facility] WBC 9.60 3.40 - 10.80 10*3/mm3 04/10/2025 3:56 AM EDT [facility] RBC 4.67 4.14 - 5.80 10*6/mm3 04/10/2025 3:56 AM EDT [facility] Hemoglobin 12.9(L) 13.0 - 17.7 g/dL 04/10/2025 3:56 AM EDT [facility] Hematocrit 40.1 37.5 - 51.0 % 04/10/2025 3:56 AM EDT [facility] MCV 85.9 79.0 - 97.0 fL 04/10/2025 3:56 AM EDT [facility] MCH 27.6 26.6 - 33.0 pg 04/10/2025 3:56 AM EDT [facility] MCHC 32.2 31.5 - 35.7 g/dL 04/10/2025 3:56 AM EDT [facility] RDW 12.9 12.3 - 15.4 % 04/10/2025 3:56 AM EDT [facility] RDW-SD 40.5 37.0 - 54.0 fl 04/10/2025 3:56 AM EDT [facility] MPV 9.5 6.0 - 12.0 fL 04/10/2025 3:56 AM EDT [facility] Platelets 227 140 - 450 10*3/mm3 04/10/2025 3:56 AM EDT [facility] Neutrophil % 59.1 42.7 - 76.0 % 04/10/2025 3:56 AM EDT [facility] Lymphocyte % 29.0 19.6 - 45.3 % 04/10/2025 3:56 AM EDT [facility] Monocyte % 8.1 5.0 - 12.0 % 04/10/2025 3:56 AM EDT [facility] Eosinophil % 3.2 0.3 - 6.2 % 04/10/2025 3:56 AM EDT [facility] Basophil % 0.4 0.0 - 1.5 % 04/10/2025 3:56 AM EDT [facility] Immature Grans % 0.2 0.0 - 0.5 % 04/10/2025 3:56 AM EDT [facility] Neutrophils, Absolute 5.67 1.70 - 7.00 10*3/mm3 04/10/2025 3:56 AM EDT [facility] Lymphocytes, Absolute 2.78 0.70 - 3.10 10*3/mm3 04/10/2025 3:56 AM EDT [facility] Monocytes, Absolute 0.78 0.10 - 0.90 10*3/mm3 04/10/2025 3:56 AM EDT [facility] Eosinophils, Absolute 0.31 0.00 - 0.40 10*3/mm3 04/10/2025 3:56 AM EDT [facility] Basophils, Absolute 0.04 0.00 - 0.20 10*3/mm3 04/10/2025 3:56 AM EDT [facility] Immature Grans, Absolute 0.02 0.00 - 0.05 10*3/mm3 04/10/2025 3:56 AM EDT [facility] nRBC 0.0 0.0 - 0.2 /100 WBC 04/10/2025 3:56 AM EDT [facility] Blood Venipuncture / Unknown 04/10/2025 3:46 AM EDT 04/10/2025 3:53 AM EDT us Jason Álvarez DO LAB BLOOD ORDERABLES Final Resul t [facility]
[address] [place] [address], * (ABNORMAL) Basic Metabolic Panel (04/10/2025 3:46 AM EDT) [facility] Glucose 125(H) 65 - 99 mg/dL 04/10/2025 4:20 AM [facility] BUN 15.9 6.0 - 20.0 mg/dL 04/10/2025 4:20 AM [facility] Creatinine 0.77 0.76 - 1.27 mg/dL 04/10/2025 4:20 AM [facility] Sodium 137 136 - 145 mmol/L 04/10/2025 4:20 AM T [facility] Potassium 3.9 3.5 - 5.2 mmol/L 04/10/2025 4:20 AM T [facility] Chloride 102 98 - 107 mmol/L 04/10/2025 4:20 AM [facility] CO2 26.9 22.0 - 29.0 mmol/L 04/10/2025 4:20 AM [facility] Calcium 7.9(L) 8.6 - 10.5 mg/dL 04/10/2025 4:20 AM [facility] BUN/Creatinine Ratio 20.6 7.0 - 25.0 04/10/2025 4:20 AM [facility] Anion Gap 8.1 5.0 - 15.0 mmol/L 04/10/2025 4:20 AM [facility] eGFR 113.2 >60.0 mL/min/1.7 3 04/10/2025 4:20 AM [facility] Blood Venipuncture / Unknown 04/10/2025 3:46 AM EDT 04/10/2025 3:52 AM T [facility] - 04/10/2025 4:20 AM [...] Álvarez LAB BLOOD ORDERABLES Final Resul t [facility]
[address] [place] [address], * Heparin Anti-Xa (04/10/2025 3:46 AM EDT) Heparin Anti-Xa (UFH) 0.35 0.30 - 0.70 IU/ml 04/10/2025 4:23 AM EDT [facility] Blood Venipuncture / Unknown 04/10/2025 3:46 AM EDT 04/10/2025 3:53 AM EDT [facility] LAB BLOOD ORDERABLES Final R esult Performing Organization Address City/[facility]/ZIP Co de Phone Number [facility]
[address] [place] [address], * Heparin Anti-Xa (04/09/2025 10:05 AM EDT) [facility] Heparin Anti-Xa (UFH) 0.36 0.30 - 0.70 IU/ml 04/09/2025 11:12 AM EDT [facility] Blood Venipuncture / Unknown 04/09/2025 10:05 AM EDT 04/09/2025 10:47 AM EDT [facility] LAB BLOOD ORDERABLES Final R esult [facility]
[address] [place] [address], * (ABNORMAL) CBC Auto Differential (04/09/2025 4:18 AM EDT) Pathologist [facility] WBC 11.00(H) 3.40 - 10.80 10*3/mm3 04/09/2025 4:50 AM EDT [facility] RBC 4.70 4.14 - 5.80 10*6/mm3 04/09/2025 4:50 AM EDT [facility] Hemoglobin 13.0 13.0 - 17.7 g/dL 04/09/2025 4:50 AM EDT [facility] Hematocrit 40.4 37.5 - 51.0 % 04/09/2025 4:50 AM EDT [facility] MCV 86.0 79.0 - 97.0 fL 04/09/2025 4:50 AM EDT [facility] MCH 27.7 26.6 - 33.0 pg [facility] MCHC 32.2 31.5 - 35.7 g/dL 04/09/2025 4:[facility] RDW 12.8 12.3 - 15.4 % 04/09/2025 4:[facility] RDW-SD 39.9 37.0 - 54.0 fl 04/09/2025 4:[facility] MPV 10.0 6.0 - 12.0 fL 04/09/2025 4:[facility] Platelets 211 140 - 450 10*3/mm3 04/09/2025 4:50 AM EDT [facility] Neutrophil % 74.8 42.7 - 76.0 % 04/09/2025 4:50 AM EDT [facility] Lymphocyte % 15.4(L) 19.6 - 45.3 % 04/09/2025 4:50 AM EDT [facility] Monocyte % 8.5 5.0 - 12.0 % 04/09/2025 4:50 AM EDT [facility] Eosinophil % 0.6 0.3 - 6.2 % 04/09/2025 4:50 AM EDT [facility] Basophil % 0.4 0.0 - 1.5 % 04/09/2025 4:50 AM EDT [facility] Immature Grans % 0.3 0.0 - 0.5 % 04/09/2025 4:50 AM EDT [facility] Neutrophils, Absolute 8.23(H) 1.70 - 7.00 10*3/mm3 04/09/2025 4:50 AM EDT [facility] Lymphocytes, Absolute 1.69 0.70 - 3.10 10*3/mm3 04/09/2025 4:50 AM EDT [facility] Monocytes, Absolute 0.94(H) 0.10 - 0.90 10*3/mm3 04/09/2025 4:50 AM EDT [facility] Eosinophils, Absolute 0.07 0.00 - 0.40 10*3/mm3 04/09/2025 4:50 AM EDT [facility] Basophils, Absolute 0.04 0.00 - 0.20 10*3/mm3 04/09/2025 4:50 AM EDT [facility] Immature Grans, Absolute 0.03 0.00 - 0.05 10*3/mm3 04/09/2025 4:50 AM EDT [facility] nRBC 0.0 0.0 - 0.2 /100 WBC 04/09/2025 4:50 AM EDT [facility] Blood Venipuncture / Unknown 04/09/2025 4:18 AM EDT 04/09/2025 4:31 AM EDT us Sushil Dean Jr., MD LAB BLOOD ORDERABLES Fi nal Result [facility]
[address] [place] [address], * Heparin Anti-Xa (04/09/2025 4:18 AM EDT) Pathologist [facility] Heparin Anti-Xa (UFH) 0.41 0.30 - 0.70 IU/ml 04/09/2025 4:53 AM EDT [facility] Blood Venipuncture / Unknown 04/09/2025 4:18 AM EDT 04/09/2025 4:31 AM EDT Una Perla PharmD LAB BLOOD ORDERABLES Final R esult [facility]
[address] [place] [address], * (ABNORMAL) Basic Metabolic Panel (04/09/2025 4:18 AM EDT) Glucose 147(H) 65 - 99 mg/dL 04/09/2025 5:33 AM EDT [facility] BUN 23.0(H) 6.0 - 20.0 mg/dL 04/09/2025 5:33 AM EDT [facility] Creatinine 1.15 0.76 - 1.27 mg/dL 04/09/2025 5:33 AM EDT [facility] Sodium 135(L) 136 - 145 mmol/L 04/09/2025 5:33 AM EDT [facility] Potassium 4.2 3.5 - 5.2 mmol/L 04/09/2025 5:33 AM EDT [facility] Chloride 100 98 - 107 mmol/L 04/09/2025 5:33 AM EDT [facility] CO2 26.0 22.0 - 29.0 mmol/L 04/09/2025 5:33 AM EDT [facility] Calcium 8.2(L) 8.6 - 10.5 mg/dL 04/09/2025 5:33 AM EDT [facility] BUN/Creatinine Ratio 20.0 7.0 - 25.0 04/09/2025 5:33 AM EDT [facility] Anion Gap 9.0 5.0 - 15.0 mmol/L 04/09/2025 5:33 AM EDT [facility] eGFR 80.5 >60.0 mL/min/1.7 3 04/[facility]2025 [facility] Blood Venipuncture / Unknown 04/09/2025 4:18 AM EDT 04/09/2025 4:29 AM EDT Narrative [facility] - 04/09/2025 5:33 AM [...] Performing Organization Address City/[facility]/ZIP Co de Phone Number [facility]
[address] [place] [address], [place] [phone] * Wound Culture - Swab, Leg, Right (04/08/2025 3:40 PM EDT) Wound Culture No growth at 3 days ALIZA 04/11/2025 10:40 AM EDT [facility] Gram Stain Few (2+) WBCs seen 04/11/2025 10:40 AM EDT [facility] Gram Stain No organisms seen 04/11/2025 10:40 AM EDT [facility] Swab Structure of right lower limb / Unknown 04/08/2025 3:40 PM EDT 04/08/2025 8:05 PM EDT Sushil Dean Jr., MD MICROBIOLOGY - GENERAL ORDERABLES Final Result [facility]
[address] [place] [address], [facility]
[address] [place] [address], [place] [phone] * Anaerobic Culture - Swab, Leg, Right (04/08/2025 3:40 PM EDT) Pathologist [facility] Anaerobic Culture No anaerobes isolated at 5 days ALIZA 04/13/2025 7:24 AM EDT [facility] Swab Structure of right lower limb / Unknown 04/08/2025 3:40 PM EDT 04/08/2025 8:05 PM EDT Sushil Dean Jr., MD MICROBIOLOGY - GENERAL ORDERABLES Final Result [facility]
[address] [place] [address], * Scan Slide (04/08/2025 8:41 AM EDT) Pathologist [facility] RBC Morphology Normal Normal 04/08/2025 11:02 AM EDT [facility] WBC Morphology Normal Normal 04/08/2025 11:02 AM EDT [facility] Platelet Estimate Adequate Normal 04/08/2025 11:02 AM EDT [facility] Clumped Platelets Present None Seen 04/08/2025 11:02 AM EDT [facility] Blood Venipuncture / Unknown 04/08/2025 8:41 AM EDT 04/08/2025 9:10 AM EDT Una Perla PharmD LAB BLOOD ORDERABLES Final R esult [facility]
[address] [place] [address], * (ABNORMAL) CBC Auto Differential (04/08/2025 8:41 AM EDT) Pathologist [facility] WBC 10.07 3.40 - 10.80 10*3/mm3 04/08/2025 11:02 AM EDT [facility] RBC 5.01 4.14 - 5.80 10*6/mm3 04/08/2025 11:02 AM [facility] Hemoglobin 14.0 13.0 - 17.7 g/dL 04/08/2025 11:02 AM [facility] Hematocrit 42.7 37.5 - 51.0 % 04/08/2025 11:02 AM [facility] MCV 85.2 79.0 - 97.0 fL 04/08/2025 11:02 AM [facility] MCH 27.9 26.6 - 33.0 pg 04/08/2025 11:02 AM [facility] MCHC 32.8 31.5 - 35.7 g/dL 04/08/2025 11:02 AM [facility] RDW 12.6 12.3 - 15.4 % 04/08/2025 11:02 AM [facility] RDW-SD 38.9 [...] - 0.5 % 04/08/2025 11:02 AM EDT [facility] Neutrophils, Absolute 8.57(H) 1.70 - 7.00 10*3/mm3 04/08/2025 11:02 AM EDT [facility] Lymphocytes, Absolute 0.94 0.70 - 3.10 10*3/mm3 04/08/2025 11:02 AM EDT [facility] Monocytes, Absolute 0.46 0.10 - 0.90 10*3/mm3 04/08/2025 11:02 AM EDT [facility] Eosinophils, Absolute 0.03 0.00 - 0.40 10*3/mm3 04/08/2025 11:02 AM EDT [facility] Basophils, Absolute 0.02 0.00 - 0.20 10*3/mm3 04/08/2025 11:02 AM EDT [facility] Immature Grans, Absolute 0.05 0.00 - 0.05 10*3/mm3 04/08/2025 11:02 AM EDT [facility] nRBC 0.0 0.0 - 0.2 /100 WBC 04/08/2025 11:02 AM EDT [facility] Blood Venipuncture / Unknown 04/08/2025 8:41 AM EDT 04/08/2025 9:10 AM EDT Una Perla PharmD LAB BLOOD ORDERABLES Final R esult [facility]
[address] [place] [address], * (ABNORMAL) Basic Metabolic Panel (04/08/2025 8:41 AM EDT) Glucose 125(H) 65 - 99 mg/dL 04/08/2025 9:51 AM EDT [facility] BUN 13.2 6.0 - 20.0 mg/dL 04/08/2025 9:51 AM EDT [facility] Creatinine 0.69(L) 0.76 - 1.27 mg/dL 04/08/2025 9:51 AM EDT [facility] Sodium 136 136 - 145 mmol/L 04/08/2025 9:51 AM EDT [facility] Potassium 4.6 3.5 - 5.2 mmol/L 04/08/2025 9:51 AM EDT [facility] Chloride 102 98 - 107 mmol/L 04/08/2025 9:51 AM EDT [facility] CO2 23.5 22.0 - 29.0 mmol/L 04/08/2025 9:51 AM EDT [facility] Calcium 8.4(L) 8.6 - 10.5 mg/dL 04/08/2025 9:51 AM EDT [facility] BUN/Creatinine Ratio 19.1 7.0 - 25.0 04/08/2025 9:51 AM EDT [facility] Anion Gap 10.5 5.0 - 15.0 mmol/L 04/08/2025 9:51 AM EDT [facility] eGFR 117.0 >60.0 mL/min/1.7 3 04/08/2025 9:51 AM EDT [facility] Blood Venipuncture / Unknown 04/08/2025 8:41 AM EDT 04/08/2025 9:09 AM EDT Narrative [facility] - 04/08/2025 9:51 AM EDT [...] Jr., MD LAB BLOOD ORDERABLES nal Result [facility]
[address] [place] [address], [place] [phone] * Heparin Anti-Xa (04/08/2025 8:41 AM EDT) Heparin Anti-Xa (UFH) 0.33 0.30 - 0.70 IU/ml 04/08/2025 9:40 AM EDT [facility] Blood Venipuncture / Unknown 04/08/2025 8:41 AM EDT 04/08/2025 9:10 AM EDT us Sushil Dean Jr., MD LAB BLOOD ORDERABLES Fi nal Result [facility]
[address] [place] [address], [place] [phone] * [place] C Arm During Surgery (04/07/2025 9:32 PM EDT) Narrative SYSTEMGENERATED, DOCUMENTATION - 04/07/2025 9:38 PM EDT This procedure was auto-finalized with no dictation required. us Sushil Dean Jr., MD IMG FLUOROSCOPY ORDERAB LES Final Result * Wound Culture - Swab, Leg, Right (04/07/2025 9:14 PM EDT) Wound Culture No growth at 3 days ALIZA 04/11/2025 10:40 AM EDT [facility] Gram Stain Occasional WBCs seen 04/11/2025 10:40 AM EDT [facility] Gram Stain No organisms seen 04/11/2025 10:40 AM EDT [facility] Swab Structure of right lower limb / Unknown Collection / Unknown 04/07/2025 9:14 PM EDT 04/08/2025 4:36 AM EDT us Sushil Dean Jr., MD MICROBIOLOGY - GENERAL ORDERABLES Final Result Performing Organization Address City/[facility]/ZIP Co de Phone Number [facility]
[address] [place] [address], [facility]
[address] [place] [address], * Anaerobic Culture - Swab, Leg, Right (04/07/2025 9:14 PM EDT) Anaerobic Culture No anaerobes isolated at 5 days ALIZA 04/13/2025 7:21 AM EDT [facility] Swab Structure of right lower limb / Unknown Collection / Unknown 04/07/2025 9:14 PM EDT 04/08/2025 4:36 AM EDT Sushil Dean Jr., MD MICROBIOLOGY - GENERAL ORDERABLES Final Result Performing Organization Address [facility]/ZIP Co de Phone Number [facility]
[address] [place] [address], * Anaerobic Culture - Tissue, Leg (04/07/2025 9:13 PM EDT) Anaerobic Culture No anaerobes isolated at 5 days ALIZA 04/13/2025 7:21 AM EDT [facility] Tissue Lower limb structure / Unknown Collection / Unknown 04/07/2025 9:13 PM EDT 04/08/2025 4:54 AM EDT Jason Álvarez DO MICROBIOLOGY - GENERAL ORDERABLE S Final Result Performing Organization Address [facility]/ZIP Co de Phone Number [facility]
[address] [place] [address], * Tissue / Bone Culture - Tissue, Leg, Right (04/07/2025 9:13 PM EDT) Tissue Culture No growth at 3 days ALIZA 04/11/2025 10:36 AM EDT [facility] Gram Stain Rare (1+) WBCs seen 04/11/2025 10:36 AM EDT [facility] Gram Stain No organisms seen 04/11/2025 10:36 AM EDT [facility] Tissue Structure of right lower limb / Unknown 04/07/2025 9:13 PM EDT 04/08/2025 4:54 AM EDT Sushil Dean Jr., MD MICROBIOLOGY - GENERAL ORDERABLES Final Result [facility]
[address] [place] [address], [place] [phone] [facility]
[address] [place] [address], [place] [phone] * (ABNORMAL) Wound Culture - Swab, Leg, Right (04/07/2025 9:07 PM EDT) Wound Culture Light growth (2+) Staphylococcus aureus, MRSA(A) ALIZA 04/10/2025 10:38 AM EDT [facility] Comment: Methicillin resistant Staphylococcus aureus, Patient may be an isolation risk. Gram Stain Few (2+) WBCs seen 04/10/2025 10:38 AM EDT [facility] Gram Stain No organisms seen 10:38 AM EDT [facility] Swab [...] Final Result Performing Organization Address [facility] Co de Phone Number [facility]
[address] [place] [address], [facility]
[address] [place] [address], [place] [phone] * Anaerobic Culture - Swab, Leg, Right (04/07/2025 9:07 PM EDT) [facility] Anaerobic Culture No anaerobes isolated at 5 days ALIZA 04/13/2025 7:21 AM EDT [facility] Swab Structure of right lower limb / Unknown Collection / Unknown 04/07/2025 9:07 PM EDT 04/08/2025 4:36 AM EDT Sushil Dean Jr., MD MICROBIOLOGY - GENERAL ORDERABLES Final Result Performing Organization Address [facility] Co de Phone Number [facility]
[address] [place] [address], * Heparin Anti-Xa (04/07/2025 9:10 AM EDT) [facility] Heparin Anti-Xa (UFH) 0.30 0.30 - 0.70 IU/ml 04/07/2025 10:12 AM EDT [facility] Blood Venipuncture / Unknown 04/07/2025 9:10 AM EDT 04/07/2025 9:38 AM EDT Una Perla PharmD LAB BLOOD ORDERABLES Final R esult Performing Organization Address [facility] Co de Phone Number [facility]
[address] [place] [address], [place] [phone] * (ABNORMAL) CBC Auto Differential (04/07/2025 9:10 AM EDT) [facility] WBC 8.63 3.40 - 10.80 10*3/mm3 04/07/2025 9:50 AM EDT [facility] RBC 5.23 4.14 - 5.80 10*6/mm3 04/07/2025 9:50 AM EDT [facility] Hemoglobin 14.7 13.0 - 17.7 g/dL 04/07/2025 9:50 AM EDT [facility] Hematocrit 44.8 37.5 - 51.0 % 04/07/2025 9:50 AM EDT [facility] MCV 85.7 79.0 - 97.0 fL 04/07/2025 9:50 AM EDT [facility] MCH 28.1 26.6 - 33.0 pg 04/07[facility]25 [facility] MCHC 32.8 31.5 - 35.7 g/dL 04/07/2025 9:[facility] RDW 12.8 12.3 - 15.4 % 04/07/2025 9:[facility] RDW-SD 39.9 37.0 - 54.0 fl 04/07/2025 9:50 AM [facility] MPV 10.8 6.0 - 12.0 fL 04/07/2025 9:[facility] Platelets 149 140 - 450 10*3/mm3 04/07/2025 9:50 [facility] Neutrophil % 66.7 42.7 - 76.0 % 04/07/2025 9:50 AM EDT [facility] Lymphocyte % 20.5 19.6 - 45.3 % 04/07/2025 9:50 AM EDT [facility] Monocyte % 9.8 5.0 - 12.0 % 04/07/2025 9:50 AM EDT [facility] Eosinophil % 2.1 0.3 - 6.2 % 04/07/2025 9:50 AM EDT [facility] Basophil % 0.3 0.0 - 1.5 % 04/07/2025 9:50 AM EDT [facility] Immature Grans % 0.6(H) 0.0 - 0.5 % 04/07/2025 9:50 AM EDT [facility] Neutrophils, Absolute 5.75 1.70 - 7.00 10*3/mm3 04/07/2025 9:50 AM EDT [facility] Lymphocytes, Absolute 1.77 0.70 - 3.10 10*3/mm3 04/07/2025 9:50 AM EDT [facility] Monocytes, Absolute 0.85 0.10 - 0.90 10*3/mm3 04/07/2025 9:50 AM EDT [facility] Eosinophils, Absolute 0.18 0.00 - 0.40 10*3/mm3 04/07/2025 9:50 AM EDT [facility] Basophils, Absolute 0.03 0.00 - 0.20 10*3/mm3 04/07/2025 9:50 AM EDT [facility] Immature Grans, Absolute 0.05 0.00 - 0.05 10*3/mm3 04/07/2025 9:50 AM EDT [facility] nRBC 0.0 0.0 - 0.2 /100 WBC 04/07/2025 9:50 AM EDT [facility] Blood Venipuncture / Unknown 04/07/2025 9:10 AM EDT 04/07/2025 9:38 AM EDT us Jason Álvarez DO LAB BLOOD ORDERABLES Final Resul t [facility]
[address] [place] [address], * (ABNORMAL) Basic Metabolic Panel (04/07/2025 9:10 AM EDT) Glucose 112(H) 65 - 99 mg/dL 04/07/2025 10:19 AM EDT [facility] BUN 13.1 6.0 - 20.0 mg/dL 04/07/2025 10:19 AM [facility] Creatinine 0.77 0.76 - 1.27 mg/dL 04/07/2025 10:19 AM [facility] Sodium 139 136 - 145 mmol/L 04/07/2025 10:19 AM [facility] Potassium 4.2 3.5 - 5.2 mmol/L 04/07/2025 10:19 AM [facility] Comment:Specimen hemolyzed. Result may be falsely elevated. Chloride 105 98 - 107 mmol/L 04/07/2025 10:19 AM [facility] CO2 24.8 22.0 - 29.0 mmol/L 04/07/2025 10:19 AM [facility] Calcium 8.6 8.6 - 10.5 mg/dL 04/07/2025 10:19 AM [facility] BUN/Creatinine Ratio 17.0 7.0 - 25.0 04/07/2025 10:19 AM [facility] Anion Gap 9.2 5.0 - 15.0 mmol/L 04/07/2025 10:19 AM [facility] eGFR 113.2 >60.0 mL/min/1.7 3 04/07/2025 10:19 AM [facility] Blood Venipuncture / Unknown 04/07/2025 9:10 AM EDT 04/07/2025 9:38 AM T [facility] - 04/07/2025 10:19 AM EDT [...] DO LAB BLOOD ORDERABLES Final Resul t [facility]
[address] [id number], * MRI Tibia Fibula Right With & [...] [place] 04/07/2025 9:58 AM EDT Workstation ID: [id number] Narrative 04/07/2025 9:58 AM EDT MRI TIBIA [...] [place] 04/07/2025 9:58 AM EDT Workstation ID: [id number] us Sushil Dean Jr., MD IMG MRI ORDERABLES Mary Beth l Result * Heparin Anti-Xa (04/07/2025 1:42 AM EDT) Heparin Anti-Xa (UFH) 0.38 0.30 - 0.70 IU/ml 04/07/2025 2:14 AM EDT [facility] Blood Venipuncture / Unknown 04/07/2025 1:42 AM EDT 04/07/2025 1:54 AM EDT Chelsie Navarretesapna [facility] LAB BLOOD ORDERABLES Final R esult [facility]
[address] [place] [address], * Heparin Anti-Xa (04/06/2025 7:16 PM EDT) Pathologist [facility] Heparin Anti-Xa (UFH) 0.33 0.30 - 0.70 IU/ml 04/06/2025 7:50 PM EDT [facility] Blood Venipuncture / Unknown 04/06/2025 7:16 PM EDT 04/06/2025 7:35 PM EDT Cherri Beatty [facility] LAB BLOOD ORDERABLES Final Res ult [facility]
[address] [place] [address], * Potassium (04/06/2025 7:16 PM EDT) Pathologist [facility] Potassium 4.0 3.5 - 5.2 mmol/L 04/06/2025 7:53 PM EDT [facility] Blood Venipuncture / Unknown 04/06/2025 7:16 PM EDT 04/06/2025 7:35 PM EDT Jason Álvarez DO LAB BLOOD ORDERABLES Final Resul t Performing Organization Address City/[facility]/ZIP Co de Phone Number [facility]
[address] [place] [address], * (ABNORMAL) Heparin Anti-Xa (04/06/2025 12:36 PM EDT) Heparin Anti-Xa (UFH) 0.24(L) 0.30 - 0.70 IU/ml 04/06/2025 1:23 PM EDT [facility] Blood Venipuncture / Unknown 04/06/2025 12:36 PM EDT 04/06/2025 1:07 PM EDT Una LundbergD LAB BLOOD ORDERABLES Final R esult Performing Organization Address [facility] Co de Phone Number [facility]
[address] [place] [address], * (ABNORMAL) Heparin Anti-Xa (04/06/2025 3:42 AM EDT) Heparin Anti-Xa (UFH) 0.25(L) 0.30 - 0.70 IU/ml 04/06/2025 5:30 AM EDT [facility] Blood Venipuncture / Unknown 04/06/2025 3:42 AM EDT 04/06/2025 4:59 AM EDT Chelsie Turpin [facility] LAB BLOOD ORDERABLES Final R esult Performing Organization Address City/[facility]/ZIP Co de Phone Number [facility]
[address] [place] [address], * (ABNORMAL) Basic Metabolic Panel (04/06/2025 3:42 AM EDT) Glucose 94 65 - 99 mg/dL 04/06/2025 5:59 AM EDT [facility] BUN 12.8 6.0 - 20.0 mg/dL 04/06/2025 5:59 AM EDT [facility] Creatinine 0.80 0.76 - 1.27 mg/dL 04/06/2025 5:59 AM EDT [facility] Sodium 138 136 - 145 mmol/L 04/06/2025 5:59 AM EDT [facility] Potassium 3.6 3.5 - 5.2 mmol/L 04/06/2025 5:59 AM EDT [facility] Chloride 103 98 - 107 mmol/L 04/06/2025 5:59 AM EDT [facility] CO2 24.2 22.0 - 29.0 mmol/L 04/06/2025 5:59 AM EDT [facility] Calcium 8.0(L) 8.6 - 10.5 mg/dL 04/06/2025 5:59 AM T [facility] BUN/Creatinine Ratio 16.0 7.0 - 25.0 04/06/2025 5:59 AM EDT [facility] Anion Gap 10.8 5.0 - 15.0 mmol/L 04/06/2025 5:59 AM [facility] eGFR 111.9 >60.0 mL/min/1.7 3 04/06/2025 5:59 AM [facility] Blood Venipuncture [...] DO LAB BLOOD ORDERABLES Final Resul t [facility]
[address] [place] [address], * (ABNORMAL) CBC Auto Differential (04/06/2025 3:41 AM EDT) WBC 10.86(H) 3.40 - 10.80 10*3/mm3 04/06/2025 5:04 AM EDT [facility] RBC 5.08 4.14 - 5.80 10*6/mm3 04/06/2025 5:04 AM EDT [facility] Hemoglobin 13.9 13.0 - 17.7 g/dL 04/06/2025 5:04 AM EDT [facility] Hematocrit 43.7 37.5 - 51.0 % 04/06/2025 5:04 AM EDT [facility] MCV 86.0 79.0 - 97.0 fL 04/06/2025 5:04 AM EDT [facility] MCH 27.4 26.6 - 33.0 pg 04/06/2025 5:04 AM EDT [facility] MCHC 31.8 31.5 - 35.7 g/dL 04/06/2025 5:04 AM EDT [facility] RDW 12.8 12.3 - 15.4 % 04/06/2025 5:04 AM EDT [facility] RDW-SD 40.0 37.0 - 54.0 fl 04/06/2025 5:04 AM EDT [facility] MPV 11.7 6.0 - 12.0 fL 04/06/2025 5:04 AM EDT [facility] Platelets 115(L) 140 - 450 10*3/mm3 04/06/2025 5:04 AM EDT [facility] Neutrophil % 65.3 42.7 - 76.0 % 04/06/2025 5:04 AM EDT [facility] Lymphocyte % 20.5 19.6 - 45.3 % 04/06/2025 5:04 AM EDT [facility] Monocyte % 11.8 5.0 - 12.0 % 04/06/2025 5:04 AM EDT [facility] Eosinophil % 1.8 0.3 - 6.2 % 04/06/2025 5:04 AM EDT [facility] Basophil % 0.3 0.0 - 1.5 % 04/06/2025 5:04 AM EDT [facility] Immature Grans % 0.3 0.0 - 0.5 % 04/06/2025 5:04 AM EDT [facility] Neutrophils, Absolute 7.09(H) 1.70 - 7.00 10*3/mm3 04/06/2025 5:04 AM EDT [facility] Lymphocytes, Absolute 2.23 0.70 - 3.10 10*3/mm3 04/06/2025 5:04 AM EDT [facility] Monocytes, Absolute 1.28(H) 0.10 - 0.90 10*3/mm3 04/06/2025 5:04 AM EDT [facility] Eosinophils, Absolute 0.20 0.00 - 0.40 10*3/mm3 04/06/2025 5:04 AM EDT [facility] Basophils, Absolute 0.03 0.00 - 0.20 10*3/mm3 04/06/2025 5:04 AM EDT [facility] Immature Grans, Absolute 0.03 0.00 - 0.05 10*3/mm3 04/06/2025 5:04 AM EDT [facility] nRBC 0.0 0.0 - 0.2 /100 WBC 04/06/2025 5:04 AM EDT [facility] Blood Venipuncture / Unknown 04/06/2025 3:41 AM EDT 04/06/2025 4:58 AM EDT us Jason Álvarez DO LAB BLOOD ORDERABLES Final Resul t [facility]
[address] [place] [address], * Heparin Anti-Xa (04/05/2025 8:43 PM EDT) Heparin Anti-Xa (UFH) 0.38 0.30 - 0.70 IU/ml 04/05/2025 9:09 PM EDT [facility] Blood Venipuncture / Unknown 04/05/2025 8:43 PM EDT 04/05/2025 8:55 PM EDT Cherri Beatty [facility] LAB BLOOD ORDERABLES Final Res ult [facility]
[address] [place] [address], * CK (04/05/2025 12:15 PM EDT) Pathologist [facility] Creatine Kinase 140 20 - 200 U/L 04/05/2025 1:31 PM EDT [facility] Blood Venipuncture / Unknown 04/05/2025 12:15 PM EDT 04/05/2025 1:03 PM EDT Carlton Mead MD LAB BLOOD ORDERABLES Final R esult [facility]
[address] [place] [address], * (ABNORMAL) Heparin Anti-Xa (04/05/2025 12:15 PM EDT) Heparin Anti-Xa (UFH) 0.17(L) 0.30 - 0.70 IU/ml 04/05/2025 1:21 PM EDT [facility] Blood Venipuncture / Unknown 04/05/2025 12:15 PM EDT 04/05/2025 1:04 PM EDT [employer] LAB BLOOD ORDERABLES Final R esult Performing Organization Address City/[facility]/ZIP Co de Phone Number [facility]
[address] [place] [address], * (ABNORMAL) aPTT (04/05/2025 3:54 AM EDT) PTT 35.3(L) 60.0 - 90.0 seconds 04/05/2025 4:31 AM EDT [facility] Blood Venipuncture / Unknown 04/05/2025 3:54 AM EDT 04/05/2025 4:15 AM EDT Narrative [facility] - 04/05/2025 4:31 AM EDT PTT = The equivalent PTT values for the therapeutic range of heparin levels at 0.3 to 0.5 U/ml are 60 to 70 seconds. [employer] LAB BLOOD ORDERABLES Final R esult Performing Organization Address [facility] Co de Phone Number [facility]
[address] [place] [address], * Heparin Anti-Xa (04/05/2025 3:54 AM EDT) Pathologist [facility] Heparin Anti-Xa (UFH) 0.30 0.30 - 0.70 IU/ml 04/05/2025 4:32 AM EDT [facility] Blood Venipuncture / Unknown 04/05/2025 3:54 AM EDT 04/05/2025 4:15 AM EDT [employer] PharmD LAB BLOOD ORDERABLES Final R esult Performing Organization Address City/[facility]/ZIP Co de Phone Number [facility]
[address] [place] [address], [place] [phone] * (ABNORMAL) CBC Auto Differential (04/05/2025 3:54 AM EDT) [facility] WBC 11.18(H) 3.40 - 10.80 10*3/mm3 04/05/2025 4:20 AM EDT [facility] RBC 5.00 4.14 - 5.80 10*6/mm3 04/05/2025 4:20 AM EDT [facility] Hemoglobin 13.9 13.0 - 17.7 g/dL 04/05/2025 4:20 AM EDT [facility] Hematocrit 42.4 37.5 - 51.0 % 04/05/2025 4:20 AM EDT [facility] MCV 84.8 79.0 - 97.0 fL 04/05/2025 4:20 AM EDT [facility] MCH 27.8 26.6 - 33.0 pg 04/05/2025 4:20 AM EDT [facility] MCHC 32.8 31.5 - 35.7 g/dL 04/05/2025 4:[facility] RDW 12.9 12.3 - 15.4 % 04/05/2025 4:20 AM T [facility] RDW-SD 39.7 37.0 - 54.0 fl 04/05/2025 4:20 AM [facility] MPV 10.2 6.0 - 12.0 fL 04/05/2025 4:20 AM EDT [facility] Platelets 160 140 - 450 10*3/mm3 04/05/2025 4:20 AM EDT [facility] Neutrophil % 73.5 42.7 - 76.0 % 04/05/2025 4:20 AM T [facility] Lymphocyte % 14.0(L) 19.6 - 45.3 % 04/05/2025 4:20 AM EDT [facility] Monocyte % 11.0 5.0 - 12.0 % 04/05/2025 4:20 AM EDT [facility] Eosinophil % 0.8 0.3 - 6.2 % 04/05/2025 4:20 AM EDT [facility] Basophil % 0.3 0.0 - 1.5 % 04/05/2025 4:20 AM EDT [facility] Immature Grans % 0.4 0.0 - 0.5 % 04/05/2025 4:20 AM EDT [facility] Neutrophils, Absolute 8.23(H) 1.70 - 7.00 10*3/mm3 04/05/2025 4:20 AM EDT [facility] Lymphocytes, Absolute 1.56 0.70 - 3.10 10*3/mm3 04/05/2025 4:20 AM EDT [facility] Monocytes, Absolute 1.23(H) 0.10 - 0.90 10*3/mm3 04/05/2025 4:20 AM EDT [facility] Eosinophils, Absolute 0.09 0.00 - 0.40 10*3/mm3 04/05/2025 4:20 AM EDT [facility] Basophils, Absolute 0.03 0.00 - 0.20 10*3/mm3 04/05/2025 4:20 AM EDT [facility] Immature Grans, Absolute 0.04 0.00 - 0.05 10*3/mm3 04/05/2025 4:20 AM EDT [facility] nRBC 0.0 0.0 - 0.2 /100 WBC 04/05/2025 4:20 AM EDT [facility] Blood Venipuncture / Unknown 04/05/2025 3:54 AM EDT 04/05/2025 4:16 AM EDT us Una Perla PharmD LAB BLOOD ORDERABLES Final R esult [facility]
[address] [place] [address], * (ABNORMAL) Basic Metabolic Panel (04/05/2025 3:54 AM EDT) [facility] Signature Glucose 152(H) 65 - 99 mg/dL 04/05/2025 4:40 AM [facility] BUN 17.3 6.0 - 20.0 mg/dL 04/05/2025 4:40 AM [facility] Creatinine 0.92 0.76 - 1.27 mg/dL 04/05/2025 4:40 AM [facility] Sodium 136 136 - 145 mmol/L 04/05/2025 4:40 AM [facility] Potassium 3.9 3.5 - 5.2 mmol/L 04/05/2025 4:40 AM T [facility] Chloride 103 98 - 107 mmol/L 04/05/2025 4:40 AM [facility] CO2 24.0 22.0 - 29.0 mmol/L 04/05/2025 4:40 AM [facility] Calcium 7.8(L) 8.6 - 10.5 mg/dL 04/05/2025 4:40 AM [facility] BUN/Creatinine Ratio 18.8 7.0 - 25.0 04/05/2025 4:40 AM [facility] Anion Gap 9.0 5.0 - 15.0 mmol/L 04/05/2025 4:40 AM [facility] eGFR 105.2 >60.0 mL/min/1.7 3 04/05/2025 4:40 AM [facility] Blood Venipuncture / Unknown 04/05/2025 3:54 AM EDT 04/05/2025 4:15 AM [facility] - 04/05/2025 4:40 [...] ORDERABLES Final Re sult Performing Organization Address City/[facility]/ZIP Co de Phone Number [facility]
[address] [place] [address], * (ABNORMAL) aPTT (04/05/2025 12:18 AM EDT) PTT 33.6(L) 60.0 - 90.0 seconds 04/05/2025 12:53 AM EDT [facility] Blood Venipuncture / Unknown 04/05/2025 12:18 AM EDT 04/05/2025 12:37 AM EDT Narrative [facility] - 04/05/2025 12:53 AM EDT PTT = The equivalent PTT values for the therapeutic range of heparin levels at 0.3 to 0.5 U/ml are 60 to 70 seconds. Una Perla PharmD LAB BLOOD ORDERABLES Final R esult Performing Organization Address [facility] Co de Phone Number [facility]
[address] [place] [address], * (ABNORMAL) Protime-INR (04/05/2025 12:18 AM EDT) Protime 15.9(H) 12.2 - 15.3 Seconds 04/05/2025 12:53 AM EDT [facility] INR 1.19(H) 0.89 - 1.12 04/05/2025 12:53 AM EDT [facility] Blood Venipuncture / Unknown 04/05/2025 12:18 AM EDT 04/05/2025 12:37 AM EDT Una Minda PharmD LAB BLOOD ORDERABLES Final R esult Performing Organization Address City/[facility]/ZIP Co de Phone Number [facility]
[address] [place] [address], [place] [phone] * Heparin Anti-Xa (04/05/2025 12:18 AM EDT) Heparin Anti-Xa (UFH) 0.39 0.30 - 0.70 IU/ml 04/05/2025 12:54 AM EDT [facility] Blood Venipuncture / Unknown 04/05/2025 12:18 AM EDT 04/05/2025 12:37 AM EDT Una Minda PharmD LAB BLOOD ORDERABLES Final R esult [facility]
[address] [place] [address], * MRI Tibia Fibula Right With & [...] MD 04/04/2025 11:00 PM EDT Workstation ID: [id number] Narrative 04/04/2025 11:00 PM EDT MRI TIBIA [...] MD 04/04/2025 11:00 PM EDT Workstation ID: [id number] Leonora Shepherd MD IMG MRI ORDERABLES Final Resu lt * POC Creatinine (04/04/2025 2:49 PM EDT) Pathologist [facility] Creatinine 1.10 0.60 - 1.30 mg/dL 04/07/2025 7:14 PM EDT [facility] Comment:Serial Number: [id number]: [id number] Venous Blood 04/04/2025 2:49 PM EDT 04/07/2025 7:14 PM EDT Jason Álvarez DO POINT OF CARE TEST ORDERABLES Fi nal Result [facility]
[address] [place] [address], * (ABNORMAL) CBC Auto Differential (04/04/2025 2:47 PM EDT) Pathologist [facility] WBC 12.72(H) 3.40 - 10.80 10*3/mm3 04/04/2025 2:56 PM EDT [facility] RBC 5.64 4.14 - 5.80 10*6/mm3 04/04/2025 2:56 PM EDT [facility] Hemoglobin 15.3 13.0 - 17.7 g/dL 04/04/2025 2:56 PM EDT [facility] Hematocrit 47.9 37.5 - 51.0 % 04/04/2025 2:56 PM EDT [facility] MCV 84.9 79.0 - 97.0 fL 04/04/2025 2:56 PM EDT [facility] MCH 27.1 26.6 - 33.0 pg 04/04/2025 2:56 PM EDT [facility] MCHC 31.9 31.5 - 35.7 g/dL 04/04/2025 2:56 PM EDT [facility] RDW 13.1 12.3 - 15.4 % 04/04/2025 2:56 PM EDT [facility] RDW-SD 40.3 37.0 - 54.0 fl 04/04/2025 2:56 PM EDT [facility] MPV 9.4 6.0 - 12.0 fL 04/04/2025 2:56 PM EDT [facility] Platelets 232 140 - 450 10*3/mm3 04/04/2025 2:56 PM EDT [facility] Neutrophil % 74.9 42.7 - 76.0 % 04/04/2025 2:56 PM EDT [facility] Lymphocyte % 13.1(L) 19.6 - 45.3 % 04/04/2025 2:56 PM EDT [facility] Monocyte % 11.2 5.0 - 12.0 % 04/04/2025 2:56 PM EDT [facility] Eosinophil % 0.4 0.3 - 6.2 % 04/04/2025 2:56 PM EDT [facility] Basophil % 0.2 0.0 - 1.5 % 04/04/2025 2:56 PM EDT [facility] Immature Grans % 0.2 0.0 - 0.5 % 04/04/2025 2:56 PM EDT [facility] Neutrophils, Absolute 9.52(H) 1.70 - 7.00 10*3/mm3 04/04/2025 2:56 PM EDT [facility] Lymphocytes, Absolute 1.66 0.70 - 3.10 10*3/mm3 04/04/2025 2:56 PM EDT [facility] Monocytes, Absolute 1.43(H) 0.10 - 0.90 10*3/mm3 04/04/2025 2:56 PM EDT [facility] Eosinophils, Absolute 0.05 0.00 - 0.40 10*3/mm3 04/04/2025 2:56 PM EDT [facility] Basophils, Absolute 0.03 0.00 - 0.20 10*3/mm3 04/04/2025 2:56 PM EDT [facility] Immature Grans, Absolute 0.03 0.00 - 0.05 10*3/mm3 04/04/2025 2:56 PM EDT [facility] nRBC 0.0 0.0 - 0.2 /100 WBC 04/04/2025 2:56 PM EDT [facility] Blood Venipuncture / Unknown 04/04/2025 2:47 PM EDT 04/04/2025 2:52 PM EDT Mario Ortiz [facility] LAB BLOOD ORDERABLES Fin al Result [facility]
[address] [place] [address], * (ABNORMAL) C-reactive Protein (04/04/2025 2:47 PM EDT) C-Reactive Protein 8.57(H) 0.00 - 0.50 mg/dL 04/04/2025 3:26 PM EDT [facility] Blood Venipuncture / Unknown 04/04/2025 2:47 PM EDT 04/04/2025 2:52 PM EDT Mariocathy Crowley LAB BLOOD ORDERABLES Fin al Result [facility]
[address] [place] [address], * (ABNORMAL) Sedimentation Rate (04/04/2025 2:47 PM EDT) Sed Rate 51(H) 0 - 15 mm/hr 04/04/2025 3:06 PM EDT [facility] Blood Venipuncture / Unknown 04/04/2025 2:47 PM EDT 04/04/2025 2:52 PM EDT Mario Harperabbe DO LAB BLOOD ORDERABLES Fin al Result [facility]
[address] [place] [address], * Comprehensive Metabolic Panel (04/04/2025 2:47 PM EDT) Glucose 90 65 - 99 mg/dL 04/04/2025 3:26 PM EDT [facility] BUN 18.3 6.0 - 20.0 mg/dL 04/04/2025 3:26 PM EDT [facility] Creatinine 0.94 0.76 - 1.27 mg/dL 04/04/2025 3:26 PM EDT [facility] Sodium 136 136 - 145 mmol/L 04/04/2025 3:26 PM EDT [facility] Potassium 3.8 3.5 - 5.2 mmol/L 04/04/2025 3:26 PM EDT [facility] Chloride 100 98 - 107 mmol/L 04/04/2025 3:26 PM EDT [facility] CO2 25.3 22.0 - 29.0 mmol/L 04/04/2025 3:26 PM EDT [facility] Calcium 8.6 8.6 - 10.5 mg/dL 04/04/2025 3:26 PM EDT [facility] Total Protein 7.3 6.0 - 8.5 g/dL 04/04/2025 3:26 PM EDT [facility] Albumin 4.1 3.5 - 5.2 g/dL 04/04/2025 3:26 PM EDT [facility] ALT (SGPT) 26 1 - 41 U/L 04/04/2025 3:26 PM EDT [facility] AST (SGOT) 25 1 - 40 U/L 04/04/2025 3:26 PM EDT [facility] Alkaline Phosphatase 106 39 - 117 U/L 04/04/2025 3:26 PM EDT [facility] Total Bilirubin 1.0 0.0 - 1.2 mg/dL 04/04/2025 3:26 PM EDT [facility] Globulin 3.2 gm/dL 04/04/2025 3:26 PM EDT [facility] Comment:Calculated Result A/G Ratio 1.3 g/dL 04/04/2025 3:26 PM EDT [facility] BUN/Creatinine Ratio 19.5 7.0 - 25.0 04/04/2025 3:26 PM EDT [facility] Anion Gap 10.7 5.0 - 15.0 mmol/L 04/04/2025 3:26 PM EDT [facility] eGFR 102.5 >60.0 mL/min/1.7 3 04/04/2025 3:26 PM EDT [facility] Blood Venipuncture / Unknown 04/04/2025 2:47 PM EDT 04/04/2025 2:52 PM EDT Narrative [facility] - 04/04/2025 3:26 PM [...] DO LAB BLOOD ORDERABLES Fin al Result [facility]
[address] [place] [address], documented in this encounter Visit Diagnoses Diagnosis [...] BPA Driven Protocol Open Order & [facility] Electrolyte Replacement Protocol Algorithm to [...] BPA Driven Protocol Open Order & [facility] Electrolyte Replacement Protocol Algorithm to [...] BPA Driven Protocol Open Order & [facility] Electrolyte Replacement Protocol Algorithm to [...] disposal. 0831 (Given - Provider: Amber Salazar, VICE PRESIDENT FINANCIAL)194 (Given - Provider: Anahy Marcelino, KELL)2129 (Canceled Entry - Provider: Anahy Marcelino RRT - Comment: previously given) 0837 (Given - Provider: Amber Salazar VICE PRESIDENT FINANCIAL)2006 (Given - Provider: Loree Reese, KELL)213 (Canceled Entry - Provider: Loree Reese RRT) 1037 (Given - Provider: Leonora J April, VICE PRESIDENT FINANCIAL) cefTRIAXone (ROCEPHIN) 2,000 mg in sodium chloride [...] at 0900 906 (Given - Provider: Shirley Hart, LU) 905 (Given - Provider: Shirley Hart RN) 100 (Given - Provider: Marguerite Wakefield, RN) hydroCHLOROthiazide tablet 12.5 mg 12.5 mg, Oral, Daily, First dose on 04/05/25 at 0900, Caution: Look alike/sound alike drug alert 905 (Given - Provider: Shirley Hart RN) 905 (Given - Provider: Shirley Hart, RN) 100 (Given - Provider: Marguerite Wakefield, RN) ketorolac (TORADOL) injection 15 mg 15 mg, Intravenous, Once, On Mon04/09/25 at 2215, For 1 dose, Based on patient request - if ordered for moderate or severe pain, provider allows for administration of a medication prescribed for a lower pain scale. (BK) If given for pain, use the following [...] Continuous Medication Order 04/09/2025 04/10/2025 04/11/2025 heparin 96329 units/250 mL (100 units/mL) in 0.45 % [...] BPA Driven Protocol Open Order & [facility] Electrolyte Replacement Protocol Algorithm to [...] BPA Driven Protocol Open Order & [facility] Electrolyte Replacement Protocol Algorithm to [...] documented as of this encounter Care Teams Restaurant [employer] Person Relationship Specialty Start Date End Date Provider, [place] [address] PCP - General 05/09/23 documented as of this encounter
--- OUTSIDE RECORDS SUMMARY | 2025-04-08 15:34 | XMS_ITS | Encounter Summary ---
Author Organization [facility] Address [address] [place] [address] Care Team Providers Care Livestock Agent Name Role Phone Provider, No Known Primary Care Provider Unavail able Reason for Visit * Auth/Cert Specialty Diagnoses / Procedures Referred By Bulmaro muniz Referred To Contact Diagnoses Right BKA infection Referral ID Status Reason Start Date Expiration Date Visits Re quested Visits Authorized [id number] 1 1 Encounter Details Date Type Department Care Team (Late st Contact Info) Description 04/08/2025 3:34 PM EDT Anesthesia Event [facility] OR [address] [place] [address] Ulises Hoffman MD [address] [place] [address] Jairo Brooks MD [address] [place] [address] Anesthesia Record Procedure Summary Procedure Name Responsible [...] alcohol) [facility] Utilities Answer Date Recorded In the past 12 months has [employer] oil, or water [employer] threatened to shut off services in [...] or training? 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
--- OUTSIDE RECORDS SUMMARY | 2025-04-19 09:27 | XMS_ITS | Encounter Summary ---
Author Organization Healthcare Address [address] [place] [address] Care Team Providers Care Continuous Pickling Line Pickler Name Role Phone Unavailable Primary Care Provider Unavailabl e Encounter Details Date Type Department Care Team (Late st Contact Info) Description 07/20/2022 Lab Requisition [facility] [address] [place] [address] Sushil Dean MD [address] [place] [address] Encounter for general adult medical examination without [...]
--- OUTSIDE RECORDS SUMMARY | 2025-04-19 09:27 | XMS_ITS | Encounter Summary ---
Author Organization Healthcare Address [address] [place] [address] Care Team Providers Care Photo Technologist Name Role Phone Unavailable Primary Care Provider Unavailabl e Encounter Details Date Type Department Care Team (Late st Contact Info) Description 08/12/2022 Lab Requisition [facility] [address] [place] [address] Sushil Dean MD [address] [place] [address] Encounter for general adult medical examination without [...] has been identified using the FDA Approved [employer] [place] System The organism value for this [...] O ERIC Final Result Performing Organization Address City/[facility] de Phone Number HEALTHCARE LAB [address] [place] [address] * Bone Culture and Gram Stain (08/12/2022 [...] RDERABLES Final Result Performing Organization Address City/[facility] de Phone Number [facility] [address] [place] [address] documented in this encounter Visit Diagnoses Diagnosis Encounter for general adult medical examination without abnormal findings documented in this encounter
--- OUTSIDE RECORDS SUMMARY | 2025-04-19 09:27 | XMS_ITS | Encounter Summary ---
Author Organization Healthcare Address [address] [place] [address] Care Team Providers Care Field Superintendent Name Role Phone Unavailable Primary Care Provider Unavailabl e Encounter Details Date Type Department Care Team (Late st Contact Info) Description 07/20/2022 Lab Requisition [facility] [address] [place] [address] Sushil Dean MD [address] [place] [address] Encounter for general adult medical examination without [...] at day 4 07/27/2022 11:32 AM EST [facility] Bone Specimen from bone / Unknown 07/20/2022 1:36 PM EST 07/20/2022 5:52 PM EST us Sushil Dean MD LAB MICROBIOLOGY - GENERAL O RDERABLES Final Result Performing Organization Address City/[facility] Co de Phone Number [facility]ALTHCARE LAB [address] [place] [address] * Bone Culture and Gram Stain (07/20/2022 1:36 PM EST) Culture No growth at day 4 2022 9:16 AM EST [facility] Gram Stain Result Rare Polymorphonuclear leukocytes 07/24/2022 9:16 AM EST [facility] Gram Stain Result No organisms seen 07/24/2022 9:16 AM EST [facility] Bone Specimen from bone / Unknown 07/20/2022 1:36 PM EST 07/20/2022 5:52 PM EST us Sushil Dean MD LAB MICROBIOLOGY - GENERAL O RDERABLES Final Result Performing Organization Address City/[facility] Co de Phone Number [facility] [address] [place] [address] documented in this encounter Visit Diagnoses Diagnosis Encounter for general adult medical examination without abnormal findings documented in this encounter
--- OUTSIDE RECORDS SUMMARY | 2025-04-19 09:27 | XMS_ITS | Encounter Summary ---
Author Organization [facility] Address [address] [place] [address] Care Team Providers Care Manager Bridge Name Role Phone Provider, No Known Primary [...] 2:25 PM EDT Cherri Grimm RN * [place] Suicide Severity Rating Scale (Screener/Recent Self-Report) Question [...] as of this encounter Care Teams Manager Bridge Relationship Specialty Start Date End Date Provider, No Known [facility] [place] [address] PCP - General 05/09/23 documented as of this encounter
--- OUTSIDE RECORDS SUMMARY | 2025-04-19 09:27 | XMS_ITS | Encounter Summary ---
Author Organization Healthcare Address [address] [place] [address] Care Team Providers Care Aircraft Navigator Name Role Phone Unavailable Primary Care Provider Unavailabl e Encounter Details Date Type Department Care Team (Late st Contact Info) Description 05/13/2023 Lab Requisition [facility] [address] [place] [address] Sushil Dean MD [address] [facility]. [address] [place] [address] Encounter for general adult medical examination without [...] O RDERABLES Final Result Performing Organization Address [facility] Co de Phone Number [facility] [address] [place] [address] * Anaerobic Culture (05/13/2023 9:17 AM EDT) Culture No growth at day 4 05/20/2023 10:35 AM EST [facility] Bone 05/13/2023 9:17 AM EDT 05/13/2023 1:25 PM EDT us Sushil Dean MD LAB MICROBIOLOGY - GENERAL O RDERABLES Final Result Performing Organization Address [facility] de Phone Number [facility] [address] [place] [address] * Bone Culture and Gram Stain (05/13/2023 [...] O RDERABLES Final Result Performing Organization Address [facility] de Phone Number [facility] [address] [place] [address] documented in this encounter Visit Diagnoses Diagnosis Encounter for general adult medical examination without abnormal findings documented in this encounter
--- OUTSIDE RECORDS SUMMARY | 2025-04-19 09:27 | XMS_ITS | Patient Health Record ---
[facility] [address] [place] [id number] Care Team Providers Care Sql Server Consultant Name Role Phone Zeeshan Salazar Primary Care [...] W/U Status Risk Notes Problem Essential hypertension (08878462) HTN [Hypertension] (401.9) Active confirmed appears resolved Problem Hypothyroidism (39307566) Hypothyroidism NOS (244.9) Active confirmed Problem Hyperlipidemia (47833960) Hyperlipidemia (272.4) Active confirmed Problem Constipation (45234742) Constipation, unspecified constipation type (K59.00) Active confirmed Problem History of pulmonary embolism on long-term anticoagulation therapy (69072137823004141 ) Hx pulmonary embolism (Z86.711) Active confirmed Problem Long-term current use of anticoagulant (420364802) Current use of terminal press operator anticoagulation (Z79.01) Active confirmed Problem Adjustment disorder with anxious mood (02490013) Adjustment disorder with anxious mood (F43.22) Active confirmed Problem History of pulmonary embolus (790922937) History of pulmonary embolus (PE) (Z86.711) Active confirmed Problem Methicillin resistant Staphylococcus aureus infection (disorder) (702908027) Infection of wound due to methicillin resistant Staphylococcus aureus (MRSA) (A49.02) Active confirmed Problem Arthritis of knee (499389591) Arthritis of knee (M17.10) Active confirmed Problem Amputated below knee (638787358) 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
--- OUTSIDE RECORDS SUMMARY | 2025-04-19 09:27 | XMS_ITS | Clinical Summary ---
Author Organization Healthcare Address [address] [place] [address] Care Team Providers Care Mechanical Maintenance Worker Name Role Phone Unavailable Primary Care Provider [...]
--- OUTSIDE RECORDS SUMMARY | 2025-04-19 09:27 | XMS_ITS | Encounter Summary ---
Author Organization Healthcare Address [address] [place] [address] Care Team Providers Care Skin Specialist Name Role Phone Unavailable Primary Care Provider Unavailabl e Encounter Details Date Type Department Care Team (Late st Contact Info) Description 10/01/2022 Lab Requisition [facility] [address] [place] [address] Sushil Dean MD [address] [facility]. [address] [place] [address] Encounter for general adult medical examination without [...] has been identified using the FDA Approved [employer] [place] System The organism value for this [...] 10/04/2022 2:17 PM EDT Refer to culture [id number] FOR SUSCEPTIBILITIES ON NEELIMA ALBICANS us Sushil Dean MD LAB MICROBIOLOGY - GENERAL O RDERABLES Final Result [facility] [address] [place] [address] documented in this encounter Visit Diagnoses Diagnosis Encounter for general adult medical examination without abnormal findings documented in this encounter
--- OUTSIDE RECORDS SUMMARY | 2025-04-19 09:27 | XMS_ITS | Encounter Summary ---
Author Organization Healthcare Address [address] [place] [address] Care Team Providers Care Treasury Accountant Name Role Phone Unavailable Primary Care Provider Unavailabl e Encounter Details Date Type Department Care Team (Late st Contact Info) Description 05/17/2023 Lab Requisition [facility] [address] [place] [address] Sushil Dean MD [address] [facility] [address] [place] [address] Encounter for general adult medical examination without [...] O RDERABLES Final Result Performing Organization Address City/[facility] Co de Phone Number [facility] [address] [place] [address] * Bone Culture and Gram Stain (05/17/2023 [...] O RDERABLES Final Result Performing Organization Address [facility] Co de Phone Number [facility] [address] [place] [address] documented in this encounter Visit Diagnoses Diagnosis Encounter for general adult medical examination without abnormal findings documented in this encounter
--- OUTSIDE RECORDS SUMMARY | 2025-04-19 09:27 | XMS_ITS | Clinical Summary ---
Author Organization [facility] Address [address] [place] [address] Care Team Providers Care Magnesium Mill Operator Name Role Phone Provider, No Known [...] Discontinue d(Stop Taking at Discharge) Lactobacillus- Inulin ([facility]) capsule Take 200 mg by mouth Daily. [...] Description 04/08/2025 3:34 PM EDT Anesthesia Event [facility] [place] [place] [place] [address] [place] [phone] Ulises Hoffman MD Wells, Jeremy B., MD 04/08/2025 2:45 PM EDT - 04/08/2025 4:04 PM EDT Surgery [facility] OR [address] [place] [address] Sushil Dean Jr., MD LEG DEBRIDEMENT AND IRRIGATION 04/07/2025 8:36 PM EDT Anesthesia Event [facility] OR [address] [place] [address] Luci Alonso DO 04/07/2025 6:00 PM EDT - 04/07/2025 6:52 PM EDT Surgery [facility] OR [address] [place] [address] Sushil Dean Jr., MD LEG DEBRIDEMENT, IRRIGATION 04/04/2025 4:10 PM EDT - 04/11/2025 1:58 PM EDT Hospital Encounter [facility] 5G [address] [place] [address] Mario Crowley DO Anderson, Laurie, [...] Recorded In the past 12 months has [employer], gas, oil, or water [email or web address] threatened to shut off services in your [...] or training? Not on file Preferred Language Hong Konger 04/07/2025 Sex and Gender Information Value Date [...] this topic Medical Devices Implanted Type Area General Expeditor Device Identifier Shelf Expiration Date Model / Serial / Lot Dev Wnd/Cls Contrl Tiss Stratafix Spiral Pls Pds Ct1 0 22cm - [id number] Implanted:Qty: 1 on 04/08/2025 by Sushil Dean Jr., MD at [facility] Implant Right: Leg [employer] 12/07/2025 [id number] / / [id number] Procedures Procedure Name Priority [...] resultswithin the time period is included. Pathologist [facility] WBC 7.87 3.40 - 10.80 10*3/mm3 04/11/2025 4:02 AM EDT [facility] RBC 4.70 4.14 - 5.80 10*6/mm3 04/11/2025 4:02 AM EDT [facility] Hemoglobin 12.8(L) 13.0 - 17.7 g/dL 04/11/2025 4:02 AM EDT [facility] Hematocrit 40.5 37.5 - 51.0 % 04/11/2025 4:02 AM EDT [facility] MCV 86.2 79.0 - 97.0 fL 04/11/2025 4:02 AM EDT [facility] MCH 27.2 26.6 - 33.0 pg 04/11/2025 4:02 AM EDT [facility] MCHC 31.6 31.5 - 35.7 g/dL 04/11/2025 4:02 AM EDT [facility] RDW 12.9 12.3 - 15.4 % 04/11/2025 4:02 AM EDT [facility] RDW-SD 40.5 37.0 - 54.0 fl 04/11/2025 4:02 AM EDT [facility] MPV 9.2 6.0 - 12.0 fL 04/11/2025 4:02 AM EDT [facility] Platelets 267 140 - 450 10*3/mm3 04/11/2025 4:02 AM EDT [facility] Neutrophil % 59.5 42.7 - 76.0 % 04/11/2025 4:02 AM EDT [facility] Lymphocyte % 26.3 19.6 - 45.3 % 04/11/2025 4:02 AM EDT [facility] Monocyte % 9.3 5.0 - 12.0 % 04/11/2025 4:02 AM [facility] Eosinophil % 4.1 0.3 - 6.2 % 04/11/2025 4:02 AM EDT [facility] Basophil % 0.4 0.0 - 1.5 % 04[facility] Immature Grans % 0.4 0.0 - 0.5 % 04/11/2025 4:02 AM [facility] Neutrophils, Absolute 4.69 1.70 - 7.00 10*3/mm3 04/11/2025 4:02 AM [facility] Lymphocytes, Absolute 2.07 0.70 - 3.10 10*3/mm3 04/11/2025 4:02 AM [facility] Monocytes, Absolute 0.73 0.10 - 0.90 10*3/mm3 04/11/2025 4:02 AM [facility] Eosinophils, Absolute 0.32 0.00 - 0.40 10*3/mm3 04/11/2025 4:02 AM [facility] Basophils, Absolute 0.03 0.00 - 0.20 10*3/mm3 04/11/2025 4:02 AM [facility] Immature Grans, Absolute 0.03 0.00 - 0.05 10*3/mm3 04/11/2025 4:02 AM [facility] nRBC 0.0 0.0 - 0.2 /100 WBC 04/11/2025 4:02 AM [facility] Blood Venipuncture / Unknown 04/11/2025 3:40 AM EDT 04/11/2025 3:59 AM EDT Sushil Dean Jr., MD LAB BLOOD ORDERABLES Fi nal Result [facility]
[address] [place] [address], * (ABNORMAL) Comprehensive Metabolic Panel (04/11/2025 3:40 AM EDT) Only the most recent of2 resultswithin the time period is included. Glucose 108(H) 65 - 99 mg/dL 04/11/2025 4:19 AM EDT [facility] BUN 12.5 6.0 - 20.0 mg/dL 04/11/2025 4:19 AM EDT [facility] Creatinine 0.68(L) 0.76 - 1.27 mg/dL 04/11/2025 4:19 AM EDT [facility] Sodium 140 136 - 145 mmol/L 04/11/2025 4:19 AM EDT [facility] Potassium 3.8 3.5 - 5.2 mmol/L 04/11/2025 4:19 AM EDT [facility] Chloride 105 98 - 107 mmol/L 04/11/2025 4:19 AM EDT [facility] CO2 28.2 22.0 - 29.0 mmol/L 04/11/2025 4:19 AM EDT [facility] Calcium 8.2(L) 8.6 - 10.5 mg/dL 04/11/2025 4:19 AM EDT [facility] Total Protein 6.1 6.0 - 8.5 g/dL 04/11/2025 4:19 AM EDT [facility] Albumin 3.1(L) 3.5 - 5.2 g/dL 04/11/2025 4:19 AM EDT [facility] ALT (SGPT) 52(H) 1 - 41 U/L 04/11/2025 4:19 AM EDT [facility] AST (SGOT) 40 1 - 40 U/L 04/11/2025 4:19 AM EDT [facility] Alkaline Phosphatase 99 39 - 117 U/L 04/11/2025 4:19 AM EDT [facility] Total Bilirubin 0.2 0.0 - 1.2 mg/dL 04/11/2025 4:19 AM EDT [facility] Globulin 3.0 gm/dL 04/11/2025 4:19 AM EDT [facility] Comment:Calculated Result A/G Ratio 1.0 g/dL 04/11/2025 4:19 AM EDT [facility] BUN/Creatinine Ratio 18.4 7.0 - 25.0 04/11/2025 4:19 AM EDT [facility] Anion Gap 6.8 5.0 - 15.0 mmol/L 04/11/2025 4:19 AM EDT [facility] eGFR 117.5 >60.0 mL/min/1.7 3 04/11/2025 4:19 AM EDT [facility] Blood Venipuncture / Unknown 04/11/2025 3:40 AM EDT 04/11/2025 3:56 AM EDT [facility] - 04/11/2025 4:19 AM [...] race as a factor us Rosario Hill CONVENTION WORKER LAB BLOOD ORDERABLES Final Result [facility]
[address] [id number], * Heparin Anti-Xa (04/10/2025 3:46 AM EDT) Only the most recent of13 resultswithin the time period is included. Heparin Anti-Xa ([facility]) 0.35 0.30 - 0.70 IU/ml 04/10/2025 4:23 AM EDT [facility] Blood Venipuncture / Unknown 04/10/2025 3:46 AM EDT 04/10/2025 3:53 AM EDT Larisa Hamilton [facility] LAB BLOOD ORDERABLES Final R esult [facility]
[address] [place] [address], * (ABNORMAL) Basic Metabolic Panel (04/10/2025 3:46 AM EDT) Only the most recent of6 resultswithin the time period is included. [facility] Glucose 125(H) 65 - 99 mg/dL 04/10/2025 4:20 AM EDT [facility] BUN 15.9 6.0 - 20.0 mg/dL 04/10/2025 4:20 AM EDT [facility] Creatinine 0.77 0.76 - 1.27 mg/dL 04/10/2025 4:20 AM EDT [facility] Sodium 137 136 - 145 mmol/L 04/10/2025 4:20 AM EDT [facility] Potassium 3.9 3.5 - 5.2 mmol/L 04/10/2025 4:20 AM EDT [facility] Chloride 102 98 - 107 mmol/L 04/10/2025 4:20 AM EDT [facility] CO2 26.9 22.0 - 29.0 mmol/L 04/10/2025 4:20 AM EDT [facility] Calcium 7.9(L) 8.6 - 10.5 mg/dL 04/10/2025 4:20 AM EDT [facility] BUN/Creatinine Ratio 20.6 7.0 - 25.0 04/10/2025 4:20 AM EDT [facility] Anion Gap 8.1 5.0 - 15.0 mmol/L 04/10/2025 4:20 AM EDT [facility] eGFR 113.2 >60.0 mL/min/1.7 3 04/10/2025 4:20 AM EDT [facility] Blood Venipuncture / Unknown 04/10/2025 3:46 AM EDT 04/10/2025 3:52 AM EDT Narrative [facility] - 04/10/2025 4:20 AM EDT [...] ORDERABLES Final Resul t [facility]
[address] [place] [address], * Wound Culture - Swab, Leg, Right (04/08/2025 3:40 PM EDT) Only the most recent of3 resultswithin the time period is included. Wound Culture No growth at 3 days ALIZA 04/11/2025 10:40 AM EDT [facility] Gram Stain Few (2+) WBCs seen 04/11/2025 10:40 AM EDT [facility] Gram Stain No organisms seen 04/11/2025 10:40 AM EDT [facility] Swab Structure of right lower limb / Unknown 04/08/2025 3:40 PM EDT 04/08/2025 8:05 PM EDT Sushil Dean Jr., MD MICROBIOLOGY - GENERAL ORDERABLES Final Result Performing Organization Address City/[facility]/ZIP Co de Phone Number [facility]
[address] [place] [address], [facility]
[address] [place] [address], [place] [phone] * Anaerobic Culture - Swab, Leg, Right (04/08/2025 3:40 PM EDT) Only the most recent of4 resultswithin the time period is included. Anaerobic Culture No anaerobes isolated at 5 days ALIZA 04/13/2025 7:24 AM EDT [facility] Swab Structure of right lower limb / Unknown 04/08/2025 3:40 PM EDT 04/08/2025 8:05 PM EDT Sushil Dean Jr., MD MICROBIOLOGY - GENERAL ORDERABLES Final Result Performing Organization Address [facility] Co de Phone Number [facility]
[address] [place] [address], * Scan Slide (04/08/2025 8:41 AM EDT) RBC Morphology Normal Normal 04/08/2025 11:02 AM EDT [facility] WBC Morphology Normal Normal 04/08/2025 11:02 AM EDT [facility] Platelet Estimate Adequate Normal 04/08/2025 11:02 AM EDT [facility] Clumped Platelets Present None Seen 04/08/2025 11:02 AM EDT [facility] Blood Venipuncture / Unknown 04/08/2025 8:41 AM EDT 04/08/2025 9:10 AM EDT Una Perla PharmD LAB BLOOD ORDERABLES Final R esult Performing Organization Address City/[facility]/ZIP Co de Phone Number [facility]
[address] [place] [address], [place] [phone] * FL C Arm During Surgery (04/07/2025 9:32 PM EDT) Narrative SYSTEMGENERATED, DOCUMENTATION - 04/07/2025 9:38 PM EDT This procedure was auto-finalized with no dictation required. us Sushil Dean Jr., MD IMG FLUOROSCOPY ORDERAB LES Final Result * Tissue / Bone Culture - Tissue, Leg, Right (04/07/2025 9:13 PM EDT) Tissue Culture No growth at 3 days ALIZA 04/11/2025 10:36 AM EDT [facility] Gram Stain Rare (1+) WBCs seen 04/11/2025 10:36 AM EDT [facility] Gram Stain No organisms seen 04/11/2025 10:36 AM EDT [facility] Tissue Structure of right lower limb / Unknown 04/07/2025 9:13 PM EDT 04/08/2025 4:54 AM EDT us Sushil Dean Jr., MD MICROBIOLOGY - GENERAL ORDERABLES Final Result [facility]
[address] [place] [address], [facility]
[address] [place] [address], * BH AN ETT AIRWAY (04/07/2025 8:44 [...] [place] 04/07/2025 9:58 AM EDT Workstation ID: [id number] Narrative 04/07/2025 9:58 AM EDT MRI TIBIA [...] [place] 04/07/2025 9:58 AM EDT Workstation ID: [id number] Sushil Dean Jr., MD IMG MRI ORDERABLES Mary Beth l Result * Potassium (04/06/2025 7:16 PM EDT) Potassium 4.0 3.5 - 5.2 mmol/L 04/06/2025 7:53 PM EDT [facility] Blood Venipuncture / Unknown 04/06/2025 7:16 PM EDT 04/06/2025 7:35 PM EDT Jason Álvarez DO LAB BLOOD ORDERABLES Final Resul t Performing Organization Address City/[facility]/ZIP Co de Phone Number [facility]
[address] [place] [address], * CK (04/05/2025 12:15 PM EDT) Creatine Kinase 140 20 - 200 U/L 04/05/2025 1:31 PM EDT [facility] Blood Venipuncture / Unknown 04/05/2025 12:15 PM EDT 04/05/2025 1:03 PM EDT Carlton Mead MD LAB BLOOD ORDERABLES Final R esult Performing Organization Address City/[facility]/ZIP Co de Phone Number [facility]
[address] [place] [address], * (ABNORMAL) aPTT (04/05/2025 3:54 AM EDT) Only the most recent of2 resultswithin the time period is included. PTT 35.3(L) 60.0 - 90.0 seconds 04/05/2025 4:31 AM EDT [facility] Blood Venipuncture / Unknown 04/05/2025 3:54 AM EDT 04/05/2025 4:15 AM EDT Narrative [facility] - 04/05/2025 4:31 AM EDT PTT = The equivalent PTT values for the therapeutic range of heparin levels at 0.3 to 0.5 U/ml are 60 to 70 seconds. [employer] LAB BLOOD ORDERABLES Final R esult Performing Organization Address City/[facility]/ZIP Co de Phone Number [facility]
[address] [place] [address], * (ABNORMAL) Protime-INR (04/05/2025 12:18 AM EDT) Pathologist [facility] Protime 15.9(H) 12.2 - 15.3 Seconds 04/05/2025 12:53 AM EDT [facility] INR 1.19(H) 0.89 - 1.12 04/05/2025 12:53 AM EDT [facility] Blood Venipuncture / Unknown 04/05/2025 12:18 AM EDT 04/05/2025 12:37 AM EDT Blippar PharmD LAB BLOOD ORDERABLES Final R esult Performing Organization Address City/[facility]/ZIP Co de Phone Number [facility]
[address] [place] [address], * POC Creatinine (04/04/2025 2:49 PM EDT) Pathologist [facility] Creatinine 1.10 0.60 - 1.30 mg/dL 04/07/2025 7:14 PM EDT [facility] Comment:Serial Number: [id number] 7Operator: [id number] Venous Blood 04/04/2025 2:49 PM EDT 04/07/2025 7:14 PM EDT Jason Álvarez DO POINT OF CARE TEST ORDERABLES Fi nal Result Performing Organization Address [facility] Co de Phone Number [facility]
[address] [place] [address], * (ABNORMAL) Sedimentation Rate (04/04/2025 2:47 PM EDT) Sed Rate 51(H) 0 - 15 mm/hr 04/04/2025 3:06 PM EDT [facility] Blood Venipuncture / Unknown 04/04/2025 2:47 PM EDT 04/04/2025 2:52 PM EDT Mario Crowley LAB BLOOD ORDERABLES Fin al Result Performing Organization Address [facility] de Phone Number [facility]
[address] [place] [address], * (ABNORMAL) C-reactive Protein (04/04/2025 2:47 PM EDT) C-Reactive Protein 8.57(H) 0.00 - 0.50 mg/dL 04/04/2025 3:26 PM EDT [facility] Blood Venipuncture / Unknown 04/04/2025 2:47 PM EDT 04/04/2025 2:52 PM EDT Mario Crowley DO LAB BLOOD ORDERABLES Fin al Result Performing Organization Address [facility] Co de Phone Number [facility]
[address] [place] [address], from Last 3 Months Additional Health Concerns [...] Of Support Discussed With: Patient Care Teams Magnesium Mill Operator Relationship Specialty Start Date End Date Provider, No Known [facility] [place] [address] PCP - General 05/09/23
--- OUTSIDE RECORDS SUMMARY | 2025-04-19 09:27 | XMS_ITS | Encounter Summary ---
Author Organization [facility] Address [address] [place] [address] Care Team Providers Care Dielectric Testing Machine Operator Name Role Phone Unavailable Primary Care Provider Unavailabl e Encounter Details Date Type Department Care Team (Late st Contact Info) Description 10/03/2022 Lab Requisition [facility] Lab [address] [place] [address] Dalila Cox MD [address] [place], [place] [id number] Encounter for general adult medical examination without [...] Culture Neelima albicans(A) 10/05/2022 11:58 AM EDT [facility] Comment: This result was determined by MALDI tof Mass spectrometry. This assay was developed and its performance characteristics determined by [facility] as appropriate for clinical purposes. [...] Edited Result - Final [facility] [address] [place] [address] documented in this encounter Visit Diagnoses Diagnosis Encounter for general adult medical examination without abnormal findings documented in this encounter
--- OUTSIDE RECORDS SUMMARY | 2025-04-19 09:27 | XMS_ITS | Encounter Summary ---
Author Organization Healthcare Address [address] [place] [address] Care Team Providers Care Cad Designer Name Role Phone Unavailable Primary Care Provider Unavailabl e Encounter Details Date Type Department Care Team (Late st Contact Info) Description 10/19/2022 Lab Requisition [facility] [address] [place] [address] Sushil Dean MD [address] [place] [address] Encounter for general adult medical examination without [...] by MALDI tof mass spectrometry using the [employer] database and is for research use only. The organism value for this result has been updated. These results have been appended to the previously preliminary verified report. Bone Specimen from bone / Unknown 10/19/2022 5:17 PM EDT 10/19/2022 9:49 PM EDT Sushil Dean MD LAB MICROBIOLOGY - GENERAL O RDERABLES Final Result Performing Organization Address [facility] de Phone Number [facility]ARE [facility] [address] [place] [address] * Bone Culture and Gram Stain (10/19/2022 5:17 PM EDT) Culture No growth at day 4 2022 8:14 AM EDT [facility] Gram Stain Result Few Polymorphonuclear leukocytes 10/23/2022 8:14 AM EDT [facility] Gram Stain Result No organisms seen 10/23/2022 8:14 AM EDT [facility] Bone Specimen from bone / Unknown 10/19/2022 5:17 PM EDT 10/19/2022 9:49 PM EDT Sushil Dean MD LAB MICROBIOLOGY - GENERAL O RDERAADDI Final Result Performing Organization Address [facility] Phone Number [facility] [address] [place] [address] documented in this encounter Visit Diagnoses Diagnosis Encounter for general adult medical examination without abnormal findings documented in this encounter
[2025-04-19] MEDS: SODIUM CHLORIDE 0.9% 10ML FLUSH SYRINGE 10 ML IV (10:23)
== END 2025-04-19 10:23 | disposition home or self-care (01) ==
LOC: INF 09:23
PROVIDERS: PCP Nurse Practitioner Family; Visit Provider Nurse Practitioner Family
DX: L03.115 Cellulitis of right lower limb (principal); L02.415 Cutaneous abscess of right lower limb; Z89.511 Acquired absence of right leg below knee; L30.9 Dermatitis, unspecified; D68.2 Hereditary deficiency of other clotting factors; I10 Essential (primary) hypertension; E78.5 Hyperlipidemia, unspecified; F39 Unspecified mood [affective] disorder
CPT/HCPCS: 96365; J0878

== ENCOUNTER 2025-04-20 08:59 | Outpatient (CLI) | payer MEDICARE, SELFPAY ==
--- OUTSIDE RECORDS SUMMARY | 2023-10-25 12:15 | XMS_ITS ---
Author Organization [facility] Address [address] [place] [address] Y[place]ON Sykes [id number] Care Team Providers Care Sleeve Wheel Maker Name Role Phone Zeeshan Salazar Primary Care Provider Macario Burkett [phone] Allergies No Known Allergies REASON FOR VISIT check up BP Encounters Encounter Location Date Provider Diagnosis [facility] [address] [place] [address] Y[place]ON Sykes [phone] 10/25/2023 Macario Burkett Plan Of Treatment No Information Progress Notes * MITCHELLWonDOB: [birth year] (44 yo M)Acc No.[id number]:10/25/2023 Progress Notes Patient: Won SPANN Provider: Colleen Burkett M.D. :1980 A ge:43 Y S ex:Male Date:10/25/2023 Address:[address] [place] [address] Onel THACKER [id number] Pcp:Zeeshan Salazar Subjective: * Chief Complaints: * [...] alive, hypertension. M aternal Grand Mother: HBP, [place]. Brother with HBP. * Social History: C URRENT TOBACCO USE S moking Status: Patient does NOT smoke. C affeine: no. Alcohol: No. * Allergies: N .K.D.A. Objective: * Vitals: Assessment: Plan: * Treatment: * Images: Billing Information: * Visit Code: * Procedure Codes: * Electronic signature of Micaela Burkett MD on 04/20/2025 at 09:02 AM EDT Sign off status: Pending * Provider: Colleen Burkett M.D. Date: 0 10/25/2023 Generated for Nany jorgensen/Elaine/Lisbethitting on: 1 09:02 AM EDT
--- OUTSIDE RECORDS SUMMARY | 2023-12-12 05:00 | XMS_ITS ---
Author Organization Ayaka Address 1210 [facility] 36 [facility] 2C [place] [phone] Care Team Providers Care Rail Tractor Operator Name Role Phone Zeeshan Salazar Primary Care Provider [phone] Macario Burkett [phone] REASON FOR VISIT 6 Month Check Up Encounters Encounter Location Date Provider Diagnosis [place] [address]10 [facility] [address] [place] [phone] 12/12/2023 Macario Burkett Plan Of Treatment No Information Progress Notes * Won MEDRANO ZeeshanDOB: [birth year] (44 yo M)Acc No.[id number]:12/12/2023 Progress Notes Patient: Won SPANN Provider: Colleen Burkett M.D. :1980 A ge:43 Y S ex:Male Date:12/12/2023 Address:[address] [place] [address] [id number] Pcp:Zeeshan Salazar Subjective: * Chief Complaints: * 1 . 6 Month Check Up. * Medical History: Objective: * Vitals: Assessment: Plan: * Treatment: * Images: Billing Information: * Visit Code: * Procedure Codes: * Electronic signature of Micaela Burkett MD on 04/20/2025 at 09:02 AM EDT Sign off status: Pending * Provider: Colleen Burkett M.D. Date: 12/12/2023 Generated for Nany jorgensen/Elaine/Pro on: 1 09:02 AM EDT
--- OUTSIDE RECORDS SUMMARY | 2025-04-04 16:10 | XMS_ITS | Encounter Summary ---
Author Organization [facility] Address [address] [place] [address] Care Team Providers Care Skinner Pelts Name Role Phone Provider, No Known Primary Care Provider Unavail able Reason for Visit * Reason Comments Leg Swelling * Auth/Cert Specialty Diagnoses / Procedures Referred By Contlevy t Referred To Contact Diagnoses Right BKA infection Referral ID Status Reason Start Date Expiration Date Visits Re quested Visits Authorized [id number] 1 1 Encounter Details Date Type Department Care Team (Late st Contact Info) Description 04/04/2025 4:10 PM EDT - 04/11/2025 1:58 PM EDT Hospital Encounter [address] [place] [address] Mario Crowley, [address] [place] [address] Leonora Shepherd MD [address] [address] Jason Álvarez DO [address] [address] Jadyn Richardson DO [address] [address] Cellulitis of right lower extremity (Primary Dx); Below-knee amputation of right lower extremity, initial encounter; Right BKA infection Discharge Disposition: Home or Self Care Social History Tobacco Use Types Packs/Day Years Used Date Smoking Tobacco: Never Smokeless Tobacco: Never Tobacco Cessation:Counseling Given: Not Answered Alcohol Use Standard Drinks/Week Comments Not Currently 0 (1 standard drink = 0.6 oz pur e alcohol) [facility] Utilities Answer Date Recorded In the past 12 months has th e [employer], gas, oil, or water company threatened to [...] or training? Not on file Preferred Language Iranian 04/07/2025 Sex and Gender Information Value Date [...] 2:25 PM EDT Cherri Grimm RN * [place] Suicide Severity Rating Scale (Screener/Recent Self-Report) Question [...] from the original note were not included. [facility] Medicine Services DISCHARGE SUMMARY Patient [...] Date/Time Wound Culture - Swab, Leg, Right [[id number]] (Abnormal) (Susceptibility) Collected: 04/07/252106 Lab Status: Final [...] Units Date/Time FL C Arm During Surgery [[id number]] Resulted: 04/07/252137 Updated: 04/07/252137 Narrative: This procedure was auto-finalized with no dictation required. MRI Tibia Fibula Right With & Without Contrast [[id number]] Collected: 04/07/25 0938 Updated: 04/07/25 1001 Narrative: [...] Buenrostro 04/07/2025 9:58 AM EDT Workstation ID: [id number] MRI Tibia Fibula Right With & Without Contrast [[id number]] Collected: 04/04/252256 Updated: 04/04/252302 Narrative: MRI TIBIA [...] MD 04/04/2025 11:00 PM EDT Workstation ID: [id number] Pending Labs Order Current Status Fungus Culture [...] FLOMAX 1 capsule, Nightly Stop These Medications [facility] Digestive [facility] capsule doxycycline 100 MG tablet Commonly [...] Male) Date of 1980 Social Security Number [id number] [place] [address] [employer] Unknown Marital Status Unknown Admission Date 04/04/2025 Admission Type Emergency Admitting Provider Jadyn Richardson DO Attending Provider Jadyn Richardson DO Department, Room/Bed [address], S565/1 Discharge Date Discharge Disposition Discharge [...] Group [place] [id number] Payor Plan Address Payor Plan Phone Number Payor Plan Fax Number Effective Dates [employer] [address] [address] 08/10/2023 - None Entered [place] [address] Subscriber Name Subscriber Date Member ID WON DENNIS 1980 [id number] Emergency Contacts 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 (Rel.) Home Phone Work Phone Mobile Phone Avril Dennis (Spouse) -- -- [phone] LewRobert (Relative) -- -- [phone] [facility] [address] Patient: ROOM: [facility] Won Dennis [address] [facility] [address] : 1980 SSN: [id number] Sex: M PCP: Provider, No Known Emergency Contact Information Name Relation Home Work Mobile Avril Dennis Spouse [phone] Other Contacts Name Relation Home Work Mobile Robert Hackett Relative [phone] INSURANCE PAYOR PLAN GROUP # SUBSCRIBER ID Primary: Secondary: MEDICARE [place] [id number] Admitting Diagnosis: 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] Order Date: Apr 09, 2025 Case Management Principal Automation Engineer Consult (Order ID: [id number]) Diagnosis: Priority: Routine Expected Date: Expiration Date: [...] INFECTIOUS DISEASE Progress Note Won Dennis 1980 [id number] Date of Consult: 04/10/2025 Admission Date: 04/04/2025 [...] 04/08/2025 Procedure: LEG DEBRIDEMENT AND IRRIGATION; Surgeon: Susihl Dean Jr., MD; Location: [facility];Service: Orthopedics; [...] Jr., MD, 20 mg at 04/09/25906 heparin 09073 units/250 mL (100 units/mL) in 0.45 % [...] Units Date/Time FL C Arm During Surgery [[id number]] Resulted: 04/07/252137 Updated: 04/07/252137 Narrative: This procedure was auto-finalized with no dictation required. MRI Tibia Fibula Right With & Without Contrast [[id number]] Collected: 04/07/25 0938 Updated: 04/07/25 1001 Narrative: [...] Chitra 04/07/2025 9:58 AM EDT Workstation ID: [id number] Impression: Recurrent Right BKA stump abscess/cellulitis- this [...] Time: 04/10/251323 Signed Expand All Collapse All [facility] Medicine Services PROGRESS NOTE Patient [...] Date/Time Wound Culture - Swab, Leg, Right [[id number]] (Abnormal) (Susceptibility) Collected: 04/07/252106 Lab Status: Final [...] Row Name 04/06/25 1143 Sit-Stand Transfer Sit-Stand Davis (Transfers) modified independence -LM Comment, (Sit-Stand Transfer) Pt stood from recliner. Not holding onto walker, pt able to pull his pants up while balancing on his one leg. -LM Row Name 04/06/25 1143 Gait/Stairs (Locomotion) Davis Level (Gait) modified independence -LM Distance in [...] Nurse Physical Therapy Education Title: PT OT TRADER Therapies (Done) Topic: Physical Therapy (Done) Point: [...] Description Service Date Service Provider Modifiers Qty [id number] PT EVAL LOW COMPLEXITY 3 04/06/2025 Susan [...] mg Daily 04/05/2025 -- Route: Oral heparin 10749 units/250 mL (100 units/mL) in 0.45 % [...] -- Admin Instructions: Open Order & Select [facility] Electrolyte Replacement Protocol Algorithm [...] 22 [facility] [address], [address] [facility] [place], [address] Please schedule at [phone] VONDA Garcia 04/11/25 08:32 EDT Cosigned by Sushil Dean Jr., MD at 04/19/2025 10:33 AM EDT Associated attestation - Sushil Dean Jr., MD - 04/19/2025 10:33 AM EDT I have reviewed this documentation and agree. * Rosario Hill APRN - 04/10/2025 1:24 PM EDT Images from the original note were not included. [facility] Medicine Services PROGRESS NOTE Patient [...] Date/Time Wound Culture - Swab, Leg, Right [[id number]] (Abnormal) (Susceptibility) Collected: 04/07/252106 Lab Status: Final [...] mg Daily 04/05/2025 -- Route: Oral heparin 32239 units/250 mL (100 units/mL) in 0.45 % [...] -- Admin Instructions: Open Order & Select [facility] Electrolyte Replacement Protocol Algorithm [...] -- Admin Instructions: Open Order & Select [facility] Electrolyte Replacement Protocol Algorithm [...] -- Admin Instructions: Open Order & Select [facility] Electrolyte Replacement Protocol Algorithm [...] 22 [facility] [address], [address] [facility] [place], [address] Please schedule at [phone] VONDA Garcia 04/10/25 09:01 EDT Cosigned by Sushil Dean Jr., MD at 04/19/2025 10:33 AM EDT Associated attestation - Sushil Dean Jr., MD - 04/19/2025 10:33 AM EDT I have reviewed this documentation and agree. * Carlton Mead MD - 04/10/2025 7:38 AM EDT Images from the original note were not included. INFECTIOUS DISEASE Progress Note Won Dennis 1980 [id number] Date of Consult: 04/10/2025 Admission Date: 04/04/2025 [...] Jr., MD, 20 mg at 04/09/25906 heparin 43801 units/250 mL (100 units/mL) in 0.45 % [...] flush 10 mL, 10 mL, Intravenous, Q12H, Calrton Mead MD, 10 mL at 04/09/25 1439 [...] vancomycin 2750 mg/500 mL 0.9% NS IVPB ([facility]) Ordering Provider: Mario Crowley, [...] Units Date/Time FL C Arm During Surgery [[id number]] Resulted: 04/07/252137 Updated: 04/07/252137 Narrative: This procedure was auto-finalized with no dictation required. MRI Tibia Fibula Right With & Without Contrast [[id number]] Collected: 04/07/25 0938 Updated: 04/07/25 1001 Narrative: [...] Buenrostro 04/07/2025 9:58 AM EDT Workstation ID: [id number] Impression: Recurrent Right BKA stump abscess/cellulitis- this [...] and CPK weekly-forward results to Dr. Rubens Trores 4. Follow-up with Dr. Rubens Torres in [...] 07:38 EDT * Yaya Hamiltonn, [facility] - 04/10/2025 7:17 AM EDT Pharmacy to [...] from the original note were not included. [facility] Medicine Services PROGRESS NOTE Patient [...] Date/Time Wound Culture - Swab, Leg, Right [[id number]] (Abnormal) Collected: 04/07/252106 Lab Status: Preliminary result [...] Preeti 04/09/25 * Larisa Hamilton [facility] - 04/09/2025 11:36 AM EDT Pharmacy to [...] mg Daily 04/05/2025 -- Route: Oral heparin 11642 units/250 mL (100 units/mL) in 0.45 % [...] -- Admin Instructions: Open Order & Select [facility] Electrolyte Replacement Protocol Algorithm [...] -- Admin Instructions: Open Order & Select [facility] Electrolyte Replacement Protocol Algorithm [...] -- Admin Instructions: Open Order & Select [facility] Electrolyte Replacement Protocol Algorithm [...] radiographs [facility] [address], [address] [facility] [place], [address] Please schedule at [phone] VONDA Garcia 04/09/25 09:18 EDT Cosigned by Sushil Dean Jr., MD at 04/19/2025 10:33 AM EDT Associated attestation - Sushil Dean Jr., MD - 04/19/2025 10:33 AM EDT I have reviewed this documentation and agree. * Carlton Mead MD - 04/09/2025 8:25 AM EDT Images from the original note were not included. INFECTIOUS DISEASE Progress Note Won Dennis 1980 [id number] Date of Consult: 04/09/2025 Admission Date: 04/04/2025 [...] Sushil Dean Jr., MD; Location: [facility] OR; Service: Orthopedics; Laterality: Right; PLACEMENT OF WOUND VAC Right 04/07/2025 Procedure: WOUND VACUUM ASSISTED CLOSURE; Surgeon: Sushil Dean Jr., MD; Location: [facility] OR; Service: Orthopedics; Laterality: Right; [...] MD, 20 mg at 04/08/25 0800 heparin 60101 units/250 mL (100 units/mL) in 0.45 % [...] Units Date/Time FL C Arm During Surgery [[id number]] Resulted: 04/07/252137 Updated: 04/07/252137 Narrative: This procedure was auto-finalized with no dictation required. MRI Tibia Fibula Right With & Without Contrast [[id number]] Collected: 04/07/2538 Updated: 04/07/25 1001 Narrative: MRI [...] Buenrostro 04/07/2025 9:58 AM EDT Workstation ID: [id number] Impression: Recurrent Right BKA stump abscess/cellulitis- this [...] from the original note were not included. [facility] Medicine Services PROGRESS NOTE Patient [...] Buenrostro 04/07/2025 9:58 AM EDT Workstation ID: [id number] I have personally reviewed the therapy plans: [...] DO 04/08/25 * Larisa Hamilton [facility] - 04/08/2025 11:48 AM EDT Pharmacy to [...] -- Admin Instructions: Open Order & Select [facility] Electrolyte Replacement Protocol Algorithm [...] mg Daily 04/05/2025 -- Route: Oral heparin 18251 units/250 mL (100 units/mL) in 0.45 % [...] -- Admin Instructions: Open Order & Select [facility] Electrolyte Replacement Protocol Algorithm [...] -- Admin Instructions: Open Order & Select [facility] Electrolyte Replacement Protocol Algorithm [...] -- Admin Instructions: Open Order & Select [facility] Electrolyte Replacement Protocol Algorithm [...] INFECTIOUS DISEASE Progress Note Won Dennis 1980 [id number] Date of Consult: 04/08/2025 Admission Date: 04/04/2025 [...] Sushil Dean Jr., MD; Location: [facility] OR; Service: Orthopedics; Laterality: Right; PLACEMENT OF WOUND VAC Right 04/07/2025 Procedure: WOUND VACUUM ASSISTED CLOSURE; Surgeon: Sushil Dean Jr., MD; Location: [facility] OR; Service: Orthopedics; Laterality: Right; [...] Jr., MD, 20 mg at 04/07/25950 heparin 58416 units/250 mL (100 units/mL) in 0.45 % [...] Units Date/Time FL C Arm During Surgery [[id number]] Resulted: 04/07/252137 Updated: 04/07/252137 Narrative: This procedure was auto-finalized with no dictation required. MRI Tibia Fibula Right With & Without Contrast [[id number]] Collected: 04/07/2538 Updated: 04/07/25 1001 Narrative: MRI [...] Buenrostro 04/07/2025 9:58 AM EDT Workstation ID: [id number] Impression: 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 (Treated by ID in [place] Dr. Harris). Dr. Torres treated him with [...] from the original note were not included. [facility] Medicine Services PROGRESS NOTE Patient [...] Buenrostro 04/07/2025 9:58 AM EDT Workstation ID: [id number] I have personally reviewed the therapy plans: [...] DO 04/07/25 * Larisa Hamilton [facility] - 04/07/2025 11:56 AM EDT Pharmacy to [...] INFECTIOUS DISEASE Progress Note Won Dennis 1980 [id number] Date of Consult: 04/07/2025 Admission Date: 04/04/2025 [...] Application, 1 Application, Topical, Q12H, Ayah Valentin, BOBBIN HANDLER, 1 Application at 04/06/252101 DAPTOmycin (CUBICIN) 800 [...] Shepherd MD, 20 mg at 04/06/25899 heparin 72309 units/250 mL (100 units/mL) in 0.45 % NaCl infusion, 18 Units/kg/hr, Intravenous, Titrated, Cherri Beatty, [facility], Last Rate: 24.1 mL/hr at 04/07/258, 18 [...] With & Without Contrast - In process [[id number]] Resulted: 04/07/25828 Updated: 04/07/25828 This result has not been signed. Information might be incomplete. 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 (Treated by ID in [place] Dr. Harris). Dr. Torres treated him with [...] mg Daily 04/05/2025 -- Route: Oral heparin 47621 units/250 mL (100 units/mL) in 0.45 % [...] -- Admin Instructions: Open Order & Select [facility] Electrolyte Replacement Protocol Algorithm [...] -- Admin Instructions: Open Order & Select [facility] Electrolyte Replacement Protocol Algorithm [...] 06:07 EDT * Cherri Beatty [facility] - 04/06/2025 1:47 PM EDT Pharmacy to [...] from the original note were not included. [facility] Medicine Services PROGRESS NOTE Patient [...] MD 04/04/2025 11:00 PM EDT Workstation ID: [id number] I have personally reviewed the therapy plans: [...] display. Brief Hospital Course to date: Won Dennsi is a 44 y.o. male with a [...] mg Daily 04/05/2025 -- Route: Oral heparin 67551 units/250 mL (100 units/mL) in 0.45 % [...] -- Admin Instructions: Open Order & Select [facility] Electrolyte Replacement Protocol Algorithm [...] if he does not continue to improve. uSshil Dean Jr, MD 04/06/25 12:33 EDT * Carlton Mead MD - 04/06/2025 7:51 AM EDT Images from the original note were not included. INFECTIOUS DISEASE follow up. Won Dennis 1980 [id number] Date of Consult: 04/06/2025 Admission Date: 04/04/2025 [...] Application, 1 Application, Topical, Q12H, Ayah Valentin, BOBBIN HANDLER, 1 Application at 04/06/25 0859 DAPTOmycin (CUBICIN) [...] MD, 20 mg at 04/06/25 0900 heparin 54720 units/250 mL (100 units/mL) in 0.45 % NaCl infusion, 18 Units/kg/hr, Intravenous, Titrated, Cherri Beatty [facility], Last Rate: 24.1 mL/hr at 04/06/25 1420, [...] Tibia Fibula Right With & Without Contrast [[id number]] Collected: 04/04/252256 Updated: 04/04/252302 Narrative: MRI TIBIA [...] MD 04/04/2025 11:00 PM EDT Workstation ID: [id number] Impression: 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 (Treated by ID in [place] Dr. Harris). Dr. Torres treated him with [...] 16:00 EDT * Cherri Beatty, [facility] - 04/05/2025 3:01 PM EDT Pharmacy to [...] from the original note were not included. [facility] Medicine Services PROGRESS NOTE Patient [...] MD 04/04/2025 11:00 PM EDT Workstation ID: [id number] I have personally reviewed the therapy plans: [...] from the original note were not included. [facility] Medicine Services HISTORY AND PHYSICAL [...] MD 04/04/2025 11:00 PM EDT Workstation ID: [id number] Assessment & Plan Assessment & Plan Won [...] ORTHOPEDIC SURGERY [facility], [facility] [address] [place] [address] Orthopedic Consult Patient: Won Dennis Date of Admission: 04/04/2025 4:10 PM Date of : 1980 Attending Physician: Jason Álvarez DO Consulting Physician: Sushil Dean Jr, MD Chief Complaint: 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 male admitted to [facility] with 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]. He [...] was evaluated in the emergency department in [place], was discharged with instructions for follow-up. He [...] tablet by mouth Daily. 04/03/2025 Morning Lactobacillus-Inulin ([facility] [employer]) capsule Take 200 mg by mouth Daily. [...] MD 04/04/2025 11:00 PM EDT Workstation ID: [id number] Assessment: Right BKA infection 44-year-old male with [...] DISEASE CONSULT/INITIAL HOSPITAL VISIT Won Dennis 1980 [id number] Date of Consult: 04/05/2025 Admission Date: 04/04/2025 [...] Leonora Shepherd MD, 40 mg at 04/04/25 4449 sennosides-docusate (PERICOLACE) 8.6-50 MG per tablet 2 [...] MD, 20 mg at 04/05/25 0916 heparin 91397 units/250 mL (100 units/mL) in 0.45 % [...] Tibia Fibula Right With & Without Contrast [[id number]] Collected: 04/04/252256 Updated: 04/04/252302 Narrative: MRI TIBIA [...] represent a small area of phlegmonous change ([id number] image 10) measuring approximately 1.6 cm which [...] MD 04/04/2025 11:00 PM EDT Workstation ID: [id number] Impression: 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 (Treated by ID in [place] Dr. Harris). Dr. Torres treated him with [...] Jr., MD - 04/08/2025 3:51 PM EDT [facility] OPERATIVE REPORT PATIENT NAME: Won Dennis DATE OF : 1980 PREOP DIAGNOSIS: Right Right below-knee amputation infection POSTOP DIAGNOSIS: Same. PROCEDURE: Right Right 82842: Secondary closure below-knee amputation SURGEON: Sushil Dean MD OPERATIVE TEAM: Sql Data Analyst: Susi Grullon RN Scrub Person: Mary Paredes Scrub Person Extra: Hortencia Toribio Other: Katt Gotti RN; Charis Neville RN ANESTHETIST: Anesthesiologist: Ulises Hoffman MD TOLL TRANSMISSION WORKER: Stan Casillas CRNA Student Nurse Cloth Carrier: Karol Albert SRNA ANESTHESIA: Choice ESTIMATED BLOOD [...] CULTURE (Canceled) Sushil Dean Jr., MD 04/08/25 2764 Description: RIGHT LEG DEEP WOUND FOR CULTURE [...] [facility] [address] [place] [address] OPERATIVE REPORT PATIENT NAME: Won Dennis DATE OF : 1980 PREOP DIAGNOSIS: Right Right below knee amputation stump infection POSTOP DIAGNOSIS: Same. 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 No orders to display RADIOLOGY: [x] [...] 04/11/2025 1:30 PM EDT Continued Stay Note [place] Patient Name: Won Dennis Today's Date: 04/11/2025 Admit Date: 04/04/2025 Plan: Home with outpatient infusion. Discharge Plan Row Name 04/11/25 1155 Plan Plan Home with outpatient infusion. Final Discharge Disposition Code 01 - home or self-care Final Note Patient discharging today. He is discharging home with outpatient infusion at [facility]. He has an appointment with [facility] at 8:00 am tomorrow. They will do PICC line dressing changes. DEBRA has spoke with Dena at [facility] today multiple times to get [...] with KELLEE and given themhis Medicare number [id number], she sent it to Admission. DEBRA spoke with Kerri, with [facility], and explained that he had Medicare A and B. However, it will not cover home infusion. It will be $64.00 a day out of packet. Patients can go to the Infusion center at [facility], and it will cover the cost as an outpatient. He will need to go there every day for infusion. They will be able to do the patients' PICC line dressing changes and lab work. CM called Dena [facility] they can accept patient and start him. He is known for their facility. The Facility will need to run it through his insurance first. CM faxed the orders over to [facility] at [phone]. CM will follow up with them tomorrow at [facility] to make sure they received the orders. [...] with patient at bedside today. [facility]. Patient getting PICC line [...] note were not included. 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 Patient lives with and his 5 kids in [facility]. 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 He has walker, cane, shower chair, and crutches. He requested a wheelchair for home. CM will order wheelchair through [employer]. He is not current with home health services. PCP is Dr. Jordan. Insurance is [facility] Medicaid [place]. Patient discharge plan is home with priavte transport. CM will follow for any discharge needs. Final Discharge Disposition Code 01 - home or self-care Continued Care and Services - Admitted Since 04/04/2025 No active coordination exists. Demographic Summary Row Name 04/07/25 1143 General Information Arrived From hospital Preferred Language Iranian Functional Status Row Name 04/07/25 1143 Functional [...] 3:4 0 PM EDT Right BKA infection MA SEC ABDOMINAL WALL SUTURE EVISCERATION/DEHSN 04/08/2025 3:20 [...] CBC Auto Differential (04/11/2025 3:40 AM EDT) [facility] WBC 7.87 3.40 - 10.80 10*3/mm3 04/11/2025 4:02 AM EDT [facility] RBC 4.70 4.14 - 5.80 10*6/mm3 04/11/2025 4:02 AM EDT [facility] Hemoglobin 12.8(L) 13.0 - 17.7 g/dL 04/11/2025 4:02 AM EDT [facility] Hematocrit 40.5 37.5 - 51.0 % 04/11/2025 4:02 AM EDT [facility] MCV 86.2 79.0 - 97.0 fL 04/11/2025 4:02 AM EDT [facility] MCH 27.2 26.6 - 33.0 pg 04/11/2025 4:02 AM EDT [facility] MCHC 31.6 31.5 - 35.7 g/dL 04/11/2025 4:02 AM EDT [facility] RDW 12.9 12.3 - 15.4 % 04/11/2025 4:02 AM EDT [facility] RDW-SD 40.5 37.0 - 54.0 fl 04/11/2025 4:02 AM EDT [facility] MPV 9.2 6.0 - 12.0 fL 04/11/2025 4:02 AM EDT [facility] Platelets 267 140 - 450 10*3/mm3 04/11/2025 4:02 AM [facility] LABORATORY Neutrophil % 59.5 42.7 - 76.0 % 04/11/2025 4:02 AM [facility] Lymphocyte % 26.3 19.6 - 45.3 % 04/11/2025 4:02 AM [facility] Monocyte % 9.3 5.0 - 12.0 % 04/11/2025 4:02 AM [facility] Eosinophil % 4.1 0.3 - 6.2 % 04/11/2025 4:02 AM [facility] Basophil % 0.4 0.0 - 1.5 % 04/11/2025 4:02 AM [facility] Immature Grans % 0.4 0.0 - 0.5 % 04/11/2025 4:02 AM [facility] Neutrophils, Absolute 4.69 1.70 - 7.00 10*3/mm3 04/11/2025 4:02 AM [facility] Lymphocytes, Absolute 2.07 0.70 - 3.10 10*3/mm3 04/11/2025 4:02 AM [facility] Monocytes, Absolute 0.73 0.10 - 0.90 10*3/mm3 04/11/2025 4:02 AM [facility] Eosinophils, Absolute 0.32 0.00 - 0.40 10*3/mm3 04/11/2025 4:02 AM [facility] Basophils, Absolute 0.03 0.00 - 0.20 10*3/mm3 04/11/2025 4:02 AM [facility] Immature Grans, Absolute 0.03 0.00 - 0.05 10*3/mm3 04/11/2025 4:02 AM [facility] nRBC 0.0 0.0 - 0.2 /100 WBC 04/11/2025 4:02 AM [facility] Blood Venipuncture / Unknown 04/11/2025 3:40 AM EDT 04/11/2025 3:59 AM EDT us Sushil Dean Jr., MD LAB BLOOD ORDERABLES Fi nal Result [facility]
[address] [place] [address], * (ABNORMAL) Comprehensive Metabolic Panel (04/11/2025 3:40 AM EDT) Glucose 108(H) 65 - 99 mg/dL 04/11/2025 4:19 AM EDT [facility] BUN 12.5 6.0 - 20.0 mg/dL 04/11/2025 4:19 AM EDT [facility] Creatinine 0.68(L) 0.76 - 1.27 mg/dL 04/11/2025 4:19 AM EDT [facility] Sodium 140 136 - 145 mmol/L 04/11/2025 4:19 AM EDT [facility] Potassium 3.8 3.5 - 5.2 mmol/L 04/11/2025 4:19 AM EDT [facility] Chloride 105 98 - 107 mmol/L 04/11/2025 4:19 AM EDT [facility] CO2 28.2 22.0 - 29.0 mmol/L 04/11/2025 4:19 AM EDT [facility] Calcium 8.2(L) 8.6 - 10.5 mg/dL 04/11/2025 4:19 AM EDT [facility] Total Protein 6.1 6.0 - 8.5 g/dL 04/11/2025 4:19 AM EDT [facility] Albumin 3.1(L) 3.5 - 5.2 g/dL 04/11/2025 4:19 AM EDT [facility] ALT (SGPT) 52(H) 1 - 41 U/L 04/11/2025 4:19 AM EDT [facility] AST (SGOT) 40 1 - 40 U/L 04/11/2025 4:19 AM EDT [facility] Alkaline Phosphatase 99 39 - 117 U/L 04/11/2025 4:19 AM EDT [facility] Total Bilirubin 0.2 0.0 - 1.2 mg/dL 04/11/2025 4:19 AM EDT [facility] Globulin 3.0 gm/dL 04/11/2025 4:19 AM EDT [facility] Comment:Calculated Result A/G Ratio 1.0 g/dL 04/11/2025 4:19 AM EDT [facility] BUN/Creatinine Ratio 18.4 7.0 - 25.0 04/11/2025 4:19 AM EDT [facility] Anion Gap 6.8 5.0 - 15.0 mmol/L 04/11/2025 4:19 AM EDT [facility] eGFR 117.5 >60.0 mL/min/1.7 3 04/11/2025 4:19 AM EDT [facility] Blood Venipuncture / Unknown 04/11/2025 3:40 AM EDT 04/11/2025 3:56 AM EDT [facility] - 04/11/2025 4:19 AM EDT GFR [...] Hill APRN LAB BLOOD ORDERABLES Final Result [facility]
[address] [place] [address], * (ABNORMAL) CBC Auto Differential (04/10/2025 3:46 AM EDT) [facility] WBC 9.60 3.40 - 10.80 10*3/mm3 04/10/2025 3:56 AM EDT [facility] RBC 4.67 4.14 - 5.80 10*6/mm3 04/[facility] Hemoglobin 12.9(L) 13.0 - 17.7 g/dL 04/10/2025 3:56 AM EDT [facility] Hematocrit 40.1 37.5 - 51.0 % 04/10/2025 3:[facility] MCV 85.9 79.0 - 97.0 fL 04/10/2025 3:56 [facility] MCH 27.6 26.6 - 33.0 pg 04/10/2025 3:56 AM [facility] MCHC 32.2 31.5 - 35.7 g/dL 04/10/2025 3:56 [facility] RDW 12.9 12.3 - 15.4 % 04/10/2025 3:56 AM [facility] RDW-SD 40.5 37.0 - 54.0 fl 04/10/2025 3:56 AM [facility] MPV 9.5 6.0 - 12.0 fL 04/10/2025 3:56 AM [facility] Platelets 227 140 - 450 10*3/mm3 04/10/2025 3:56 AM EDT [facility] Neutrophil % 59.1 42.7 - 76.0 % 04/10/2025 3:[facility] Lymphocyte % 29.0 19.6 - 45.3 % 04/10/2025 3:56 [facility] Monocyte % 8.1 5.0 - 12.0 % 04/10/2025 3:56 [facility] Eosinophil % 3.2 0.3 - 6.2 % 04/10/2025 3:56 AM EDT [facility] Basophil % 0.4 0.0 - 1.5 % 04/10/2025 3:56 AM EDT [facility] Immature Grans % 0.2 0.0 - 0.5 % 04/10/2025 3:56 AM EDT [facility] Neutrophils, Absolute 5.67 1.70 - 7.00 10*3/mm3 04/10/2025 3:56 AM EDT [facility] Lymphocytes, Absolute 2.78 0.70 - 3.10 10*3/mm3 04/10/2025 3:56 AM EDT [facility] Monocytes, Absolute 0.78 0.10 - 0.90 10*3/mm3 04/10/2025 3:56 AM EDT [facility] Eosinophils, Absolute 0.31 0.00 - 0.40 10*3/mm3 04/10/2025 3:56 AM EDT [facility] Basophils, Absolute 0.04 0.00 - 0.20 10*3/mm3 04/10/2025 3:56 AM EDT [facility] Immature Grans, Absolute 0.02 0.00 - 0.05 10*3/mm3 04/10/2025 3:56 AM EDT [facility] nRBC 0.0 0.0 - 0.2 /100 WBC 04/10/2025 3:56 AM EDT [facility] Blood Venipuncture / Unknown 04/10/2025 3:46 AM EDT 04/10/2025 3:53 AM EDT Jason Álvarez DO LAB BLOOD ORDERABLES Final Resul t [facility]
[address] [place] [address], * (ABNORMAL) Basic Metabolic Panel (04/10/2025 3:46 AM EDT) [facility] Glucose 125(H) 65 - 99 mg/dL 04/10/2025 4:20 AM EDT [facility] BUN 15.9 6.0 - 20.0 mg/dL 04/10/2025 4:20 AM T [facility] Creatinine 0.77 0.76 - 1.27 mg/dL 04/10/2025 4:20 AM T [facility] Sodium 137 136 - 145 mmol/L 04/10/2025 4:20 AM [facility] Potassium 3.9 3.5 - 5.2 mmol/L 04/10/2025 4:20 AM EDT [facility] Chloride 102 98 - 107 mmol/L 04/10/2025 4:20 AM EDT [facility] CO2 26.9 22.0 - 29.0 mmol/L 04/10/2025 4:20 AM [facility] Calcium 7.9(L) 8.6 - 10.5 mg/dL 04/10/2025 4:20 AM [facility] BUN/Creatinine Ratio 20.6 7.0 - 25.0 04/10/2025 4:20 AM [facility] Anion Gap 8.1 5.0 - 15.0 mmol/L 04/10/2025 4:20 AM [facility] eGFR 113.2 >60.0 mL/min/1.7 3 04/10/2025 4:20 AM [facility] Blood Venipuncture / Unknown 04/10/2025 3:46 AM EDT 04/10/2025 3:52 AM EDT [facility] - 04/10/2025 4:20 AM EDT GFR [...] DO LAB BLOOD ORDERABLES Final Resul t [facility]
[address] [address], * Heparin Anti-Xa (04/10/2025 3:46 AM EDT) Heparin Anti-Xa ([facility]) 0.35 0.30 - 0.70 IU/ml 04/10/2025 4:23 AM EDT [facility] Blood Venipuncture / Unknown 04/10/2025 3:46 AM EDT 04/10/2025 3:53 AM EDT [facility] LAB BLOOD ORDERABLES Final R esult Performing Organization Address City/[facility]/ZIP Co de Phone Number [facility]
[address] [address], * Heparin Anti-Xa (04/09/2025 10:05 AM EDT) Heparin Anti-Xa ([facility]) 0.36 0.30 - 0.70 IU/ml 04/09/2025 11:12 AM EDT [facility] Blood Venipuncture / Unknown 04/09/2025 10:05 AM EDT 04/09/2025 10:[address] [facility] LAB BLOOD ORDERABLES Final R esult [facility]
[address] [address], * (ABNORMAL) CBC Auto Differential (04/09/2025 4:18 AM EDT) WBC 11.00(H) 3.40 - 10.80 10*3/mm3 04/09/2025 4:50 AM [facility] RBC 4.70 4.14 - 5.80 10*6/mm3 04/09/2025 4:50 AM EDT [facility] Hemoglobin 13.0 13.0 - 17.7 g/dL 04/09/2025 4:50 AM EDT [facility] Hematocrit 40.4 37.5 - 51.0 % 04/09/2025 4:50 AM EDT [facility] MCV 86.0 79.0 - 97.0 fL 04/09/2025 4:50 AM EDT [facility] MCH 27.7 26.6 - 33.0 pg 04/[facility]2025 4:[facility] MCHC 32.2 31.5 - 35.7 g/dL 04/09/2025 4:50 [facility] RDW 12.8 12.3 - 15.4 % 04/09/2025 4:50 [facility] RDW-SD 39.9 37.0 - 54.0 fl 04/09/2025 4:50 AM [facility] MPV 10.0 6.0 - 12.0 fL 04/09/2025 4:50 AM [facility] Platelets 211 140 - 450 10*3/mm3 04/09/2025 4:50 [facility] Neutrophil % 74.8 42.7 - 76.0 % 04/09/2025 4:50 AM EDT [facility] Lymphocyte % 15.4(L) 19.6 - 45.3 % 04/09/2025 4:50 AM EDT [facility] Monocyte % 8.5 5.0 - 12.0 % 04/09/2025 4:50 AM EDT [facility] Eosinophil % 0.6 0.3 - 6.2 % 04/09/2025 4:[facility] Basophil % 0.4 0.0 - 1.5 % 04/09/2025 4:50 AM EDT [facility] Immature Grans % 0.3 0.0 - 0.5 % 04/09/2025 4:50 AM EDT [facility] Neutrophils, Absolute 8.23(H) 1.70 - 7.00 10*3/mm3 04/09/2025 4:50 AM EDT [facility] Lymphocytes, Absolute 1.69 0.70 - 3.10 10*3/mm3 04/09/2025 4:50 AM EDT [facility] Monocytes, Absolute 0.94(H) 0.10 - 0.90 10*3/mm3 04/09/2025 4:50 AM EDT [facility] Eosinophils, Absolute 0.07 0.00 - 0.40 10*3/mm3 04/09/2025 4:50 AM EDT [facility] Basophils, Absolute 0.04 0.00 - 0.20 10*3/mm3 04/09/2025 4:50 AM EDT [facility] Immature Grans, Absolute 0.03 0.00 - 0.05 10*3/mm3 04/09/2025 4:50 AM EDT [facility] nRBC 0.0 0.0 - 0.2 /100 WBC 04/09/2025 4:50 AM EDT [facility] Blood Venipuncture / Unknown 04/09/2025 4:18 AM EDT 04/09/2025 4:31 AM EDT Sushil Dean Jr., MD LAB BLOOD ORDERABLES Fi nal Result [facility]
[address] [place] [address], * Heparin Anti-Xa (04/09/2025 4:18 AM EDT) Heparin Anti-Xa ([facility]) 0.41 0.30 - 0.70 IU/ml 04/09/2025 4:53 AM EDT [facility] Blood Venipuncture / Unknown 04/09/2025 4:18 AM EDT 04/09/2025 4:31 AM EDT Una Wheeleroy PharmD LAB BLOOD ORDERABLES Final R esult [facility]
[address] [place] [address], * (ABNORMAL) Basic Metabolic Panel (04/09/2025 4:18 AM EDT) Pathologist [facility] Glucose 147(H) 65 - 99 mg/dL 04/09/2025 5:33 AM EDT [facility] BUN 23.0(H) 6.0 - 20.0 mg/dL 04/09/2025 5:33 AM EDT [facility] Creatinine 1.15 0.76 - 1.27 mg/dL 04/09/2025 5:33 AM EDT [facility] Sodium 135(L) 136 - 145 mmol/L 04/09/2025 5:33 AM EDT [facility] Potassium 4.2 3.5 - 5.2 mmol/L 04/09/2025 5:33 AM EDT [facility] Chloride 100 98 - 107 mmol/L 04/09/2025 5:33 AM EDT [facility] CO2 26.0 22.0 - 29.0 mmol/L 04/09/2025 5:33 AM EDT [facility] Calcium 8.2(L) 8.6 - 10.5 mg/dL 04/09/2025 5:33 AM EDT [facility] BUN/Creatinine Ratio 20.0 7.0 - 25.0 04/09/2025 5:33 AM EDT [facility] Anion Gap 9.0 5.0 - 15.0 mmol/L 04/09/2025 5:33 AM EDT [facility] eGFR 80.5 >60.0 mL/min/1.7 3 04/09/2025 5:33 AM EDT [facility] Blood Venipuncture / Unknown 04/09/2025 4:18 AM EDT 04/09/2025 4:29 AM EDT Narrative [facility] - 04/09/2025 5:33 AM EDT [...] ORDERABLES Fi nal Result Performing Organization Address [facility] Co de Phone Number [facility]
[address] [place] [address], * Wound Culture - Swab, Leg, Right (04/08/2025 3:40 PM EDT) Wound Culture No growth at 3 days ALIZA 04/11/2025 10:40 AM EDT [facility] Gram Stain Few (2+) WBCs seen 04/11/2025 10:40 AM EDT [facility] Gram Stain No organisms seen 04/11/2025 10:40 AM EDT [facility] Swab Structure of right lower limb / Unknown 04/08/2025 3:40 PM EDT 04/08/2025 8:05 PM EDT Sushil Dean Jr., MD MICROBIOLOGY - GENERAL ORDERABLES Final Result Performing Organization Address City/[facility]/ZIP Co de Phone Number [facility]
[address] [phone], [facility]
[address] [place] [address], * Anaerobic Culture - Swab, Leg, Right (04/08/2025 3:40 PM EDT) Pathologist [facility] Anaerobic Culture No anaerobes isolated at 5 days ALIZA 04/13/2025 7:24 AM EDT [facility] Swab Structure of right lower limb / Unknown 04/08/2025 3:40 PM EDT 04/08/2025 8:05 PM EDT Sushil Dean Jr., MD MICROBIOLOGY - GENERAL ORDERABLES Final Result Performing Organization Address City/[facility] Co de Phone Number [facility]
[address] [place] [address], [place] [phone] * Scan Slide (04/08/2025 8:41 AM EDT) Pathologist [facility] RBC Morphology Normal Normal 04/08/2025 11:02 AM EDT [facility] WBC Morphology Normal Normal 04/08/2025 11:02 AM EDT [facility] Platelet Estimate Adequate Normal 04/08/2025 11:02 AM EDT [facility] Clumped Platelets Present None Seen 04/08/2025 11:02 AM EDT [facility] Blood Venipuncture / Unknown 04/08/2025 8:41 AM EDT 04/08/2025 9:10 AM EDT Una LundbergD LAB BLOOD ORDERABLES Final R esult Performing Organization Address City/[facility]/ZIP Co de Phone Number [facility]
[address] [place] [address], [place] [phone] * (ABNORMAL) CBC Auto Differential (04/08/2025 8:41 AM EDT) Pathologist [facility] WBC 10.07 3.40 - 10.80 10*3/mm3 04/08/2025 11:02 AM EDT [facility] RBC 5.01 4.14 - 5.80 10*6/mm3 04/08/2025 11:02 AM EDT [facility] Hemoglobin 14.0 13.0 - 17.7 g/dL 04/08/2025 11:02 AM [facility] Hematocrit 42.7 37.5 - 51.0 % 04/08/2025 11:02 AM [facility] MCV 85.2 79.0 - 97.0 fL 04/08/2025 11:02 AM [facility] MCH 27.9 26.6 - 33.0 pg 04/08/2025 11:02 AM [facility] MCHC 32.8 31.5 - 35.7 g/dL 04/08/2025 11:02 AM [facility] RDW 12.6 12.3 - 15.4 % 04/08/2025 11:02 AM [facility] RDW-SD 38.9 37.0 - 54.0 fl 04/08/2025 11:02 AM [facility] MPV 11.0 6.0 - 12.0 fL 04/08/2025 11:02 AM [facility] Platelets 118(L) 140 - 450 10*3/mm3 04/08/2025 11:02 AM [facility] Neutrophil % 85.1(H) 42.7 - 76.0 % 04/08/2025 11:02 AM [facility] Lymphocyte % 9.3(L) 19.6 - 45.3 % 04/08/2025 11:02 AM [facility] Monocyte % 4.6(L) 5.0 - 12.0 % 04/08/2025 11:02 AM [facility] Eosinophil % 0.3 0.3 - 6.2 % 04/08/2025 11:02 AM [facility] Basophil % 0.2 0.0 - 1.5 % 04/08/2025 11:02 AM [facility] Immature Grans % 0.5 0.0 - 0.5 % 04/08/2025 11:02 AM [facility] Neutrophils, Absolute 8.57(H) 1.70 - 7.00 10*3/mm3 04/08/2025 11:02 AM EDT [facility] Lymphocytes, Absolute 0.94 0.70 - 3.10 10*3/mm3 04/08/2025 11:02 AM EDT [facility] Monocytes, Absolute 0.46 0.10 - 0.90 10*3/mm3 04/08/2025 11:02 AM EDT [facility] Eosinophils, Absolute 0.03 0.00 - 0.40 10*3/mm3 04/08/2025 11:02 AM EDT [facility] Basophils, Absolute 0.02 0.00 - 0.20 10*3/mm3 04/08/2025 11:02 AM EDT [facility] Immature Grans, Absolute 0.05 0.00 - 0.05 10*3/mm3 04/08/2025 11:02 AM EDT [facility] nRBC 0.0 0.0 - 0.2 /100 WBC 04/08/2025 11:02 AM EDT [facility] Blood Venipuncture / Unknown 04/08/2025 8:41 AM EDT 04/08/2025 9:10 AM EDT Una Peral PharmD LAB BLOOD ORDERABLES Final R esult [facility]
[address] [place] [address], * (ABNORMAL) Basic Metabolic Panel (04/08/2025 8:41 AM EDT) Glucose 125(H) 65 - 99 mg/dL 04/08/2025 9:51 AM EDT [facility] BUN 13.2 6.0 - 20.0 mg/dL 04/08/2025 9:51 AM EDT [facility] Creatinine 0.69(L) 0.76 - 1.27 mg/dL 04/08/2025 9:51 AM EDT [facility] Sodium 136 136 - 145 mmol/L 04/08/2025 9:51 AM EDT [facility] Potassium 4.6 3.5 - 5.2 mmol/L 04/08/2025 9:51 AM EDT [facility] Chloride 102 98 - 107 mmol/L 04/08/2025 9:51 AM EDT [facility] CO2 23.5 22.0 - 29.0 mmol/L 04/08/2025 9:51 AM EDT [facility] Calcium 8.4(L) 8.6 - 10.5 mg/dL 04/08/2025 9:51 AM EDT [facility] BUN/Creatinine Ratio 19.1 7.0 - 25.0 04/08/2025 9:51 AM EDT [facility] Anion Gap 10.5 5.0 - 15.0 mmol/L 04/08/2025 9:51 AM EDT [facility] eGFR 117.0 >60.0 mL/min/1.7 3 04/08/2025 9:51 AM EDT [facility] Blood Venipuncture / Unknown 04/08/2025 8:41 AM EDT 04/08/2025 9:09 AM EDT [facility] - 04/08/2025 9:51 AM EDT GFR [...] Jr., MD LAB BLOOD ORDERABLES nal Result [facility]
[address] [place] [address], * Heparin Anti-Xa (04/08/2025 8:41 AM EDT) Heparin Anti-Xa ([facility]) 0.33 0.30 - 0.70 IU/ml 04/08/2025 9:40 AM EDT [facility] Blood Venipuncture / Unknown 04/08/2025 8:41 AM EDT 04/08/2025 9:10 AM EDT Sushil Dean Jr., MD LAB BLOOD ORDERABLES Fi nal Result [facility]
[address] [place] [address], * FL C Arm During Surgery (04/07/2025 9:32 PM EDT) Narrative SYSTEMGENERATED, DOCUMENTATION - 04/07/2025 9:38 PM EDT This procedure was auto-finalized with no dictation required. Sushil Dean Jr., MD IMG FLUOROSCOPY ORDERAB LES Final Result * Wound Culture - Swab, Leg, Right (04/07/2025 9:14 PM EDT) Wound Culture No growth at 3 days ALIZA 04/11/2025 10:40 AM EDT [facility] Gram Stain Occasional WBCs seen 04/11/2025 10:40 AM EDT [facility] Gram Stain No organisms seen 04/11/2025 10:40 AM EDT [facility] Swab Structure of right lower limb / Unknown Collection / Unknown 04/07/2025 9:14 PM EDT 04/08/2025 4:36 AM EDT Sushil Dean Jr., MD MICROBIOLOGY - GENERAL ORDERABLES Final Result [facility]
[address] [place] [address], [facility]
[address] [place] [address], * Anaerobic Culture - Swab, Leg, Right (04/07/2025 9:14 PM EDT) Anaerobic Culture No anaerobes isolated at 5 days ALIZA 04/13/2025 7:21 AM EDT [facility] Swab Structure of right lower limb / Unknown Collection / Unknown 04/07/2025 9:14 PM EDT 04/08/2025 4:36 AM EDT Sushil Dean Jr., MD MICROBIOLOGY - GENERAL ORDERABLES Final Result Performing Organization Address City/[facility]/ZIP Co de Phone Number [facility]
[address] [place] [address], * Anaerobic Culture - Tissue, Leg (04/07/2025 9:13 PM EDT) Anaerobic Culture No anaerobes isolated at 5 days ALIZA 04/13/2025 7:21 AM EDT [facility] Tissue Lower limb structure / Unknown Collection / Unknown 04/07/2025 9:13 PM EDT 04/08/2025 4:54 AM EDT Jason Álvarez DO MICROBIOLOGY - GENERAL ORDERABLE S Final Result [facility]
[address] [place] [address], * Tissue / Bone Culture - Tissue, Leg, Right (04/07/2025 9:13 PM EDT) Tissue Culture No growth at 3 days ALIZA 04/11/2025 10:36 AM EDT [facility] Gram Stain Rare (1+) WBCs seen 04/11/2025 10:36 AM EDT [facility] Gram Stain No organisms seen 04/11/2025 10:36 AM EDT [facility] Tissue Structure of right lower limb / Unknown 04/07/2025 9:13 PM EDT 04/08/2025 4:54 AM EDT Sushil Dean Jr., MD MICROBIOLOGY - GENERAL ORDERABLES Final Result Performing Organization Address City/[facility]/ZIP Co de Phone Number [facility]
[address] [place] [address], [place] [phone] [facility]
[address] [place] [address], [place] [phone] * (ABNORMAL) Wound Culture - Swab, Leg, Right (04/07/2025 9:07 PM EDT) Wound Culture Light growth (2+) Staphylococcus aureus, MRSA(A) ALIZA 04/10/2025 10:38 AM EDT [facility] Comment: Methicillin resistant Staphylococcus aureus, Patient may be an isolation risk. Gram Stain Few (2+) WBCs seen 04/10/2025 10:38 AM EDT [facility] Gram Stain No organisms seen 10:38 AM EDT [facility] Swab [...] - GENERAL ORDERABLES Final Result [facility]
[address] [place] [address], [facility]
[address] [place] [address], * Anaerobic Culture - Swab, Leg, Right (04/07/2025 9:07 PM EDT) Pathologist [facility] Anaerobic Culture No anaerobes isolated at 5 days ALIZA 04/13/2025 7:21 AM EDT [facility] Swab Structure of right lower limb / Unknown Collection / Unknown 04/07/2025 9:07 PM EDT 04/08/2025 4:36 AM EDT Sushil Dean Jr., MD MICROBIOLOGY - GENERAL ORDERABLES Final Result Performing Organization Address [facility] Co de Phone Number [facility]
[address] [place] [address], * Heparin Anti-Xa (04/07/2025 9:10 AM EDT) [facility] Heparin Anti-Xa ([facility]FH) 0.30 0.30 - 0.70 IU/ml 04/07/2025 10:12 AM EDT [facility] Blood Venipuncture / Unknown 04/07/2025 9:10 AM EDT 04/07/2025 9:38 AM EDT Una LundbergD LAB BLOOD ORDERABLES Final R esult Performing Organization Address City/[facility]/ZIP Co de Phone Number [facility]
[address] [place] [address], * (ABNORMAL) CBC Auto Differential (04/07/2025 9:10 AM EDT) Pathologist [facility] WBC 8.63 3.40 - 10.80 10*3/mm3 04/07/2025 9:50 AM EDT [facility] RBC 5.23 4.14 - 5.80 10*6/mm3 04/07[facility]25 [facility] Hemoglobin 14.7 13.0 - 17.7 g/dL 04/07/2025 9:[facility] Hematocrit 44.8 37.5 - 51.0 % 04/07/2025 9:50 [facility] MCV 85.7 79.0 - 97.0 fL 04/07/2025 9:50 AM EDT [facility] MCH 28.1 26.6 - 33.0 pg 04/07/2025 9:50 [facility] MCHC 32.8 31.5 - 35.7 g/dL 04/07/2025 9:50 [facility] RDW 12.8 12.3 - 15.4 % 04/07/2025 9:50 AM [facility] RDW-SD 39.9 37.0 - 54.0 fl 04/07/2025 9:50 AM [facility] MPV 10.8 6.0 - 12.0 fL 04/07/2025 9:50 AM [facility] Platelets 149 140 - 450 10*3/mm3 04/07/2025 9:[facility] Neutrophil % 66.7 42.7 - 76.0 % 04/07/2025 9:50 AM [facility] Lymphocyte % 20.5 19.6 - 45.3 % 04/07/2025 9:50 AM EDT [facility] Monocyte % 9.8 5.0 - 12.0 % 04/07[facility]2025 9[facility] Eosinophil % 2.1 0.3 - 6.2 % 04/07/2025 9:[facility] Basophil % 0.3 0.0 - 1.5 % 04/07/2025 9:[facility] Immature Grans % 0.6(H) 0.0 - 0.5 % 04/07/2025 9:50 AM EDT [facility] Neutrophils, Absolute 5.75 1.70 - 7.00 10*3/mm3 04/07/2025 9:50 AM EDT [facility] Lymphocytes, Absolute 1.77 0.70 - 3.10 10*3/mm3 04/07/2025 9:50 AM EDT [facility] Monocytes, Absolute 0.85 0.10 - 0.90 10*3/mm3 04/07/2025 9:50 AM EDT [facility] Eosinophils, Absolute 0.18 0.00 - 0.40 10*3/mm3 04/07/2025 9:50 AM EDT [facility] Basophils, Absolute 0.03 0.00 - 0.20 10*3/mm3 04/07/2025 9:50 AM EDT [facility] Immature Grans, Absolute 0.05 0.00 - 0.05 10*3/mm3 04/07/2025 9:50 AM EDT [facility] nRBC 0.0 0.0 - 0.2 /100 WBC 04/07/2025 9:50 AM EDT [facility] Blood Venipuncture / Unknown 04/07/2025 9:10 AM EDT 04/07/2025 9:38 AM EDT us Jason Álvarez DO LAB BLOOD ORDERABLES Final Resul t [facility]
[address] [place] [address], * (ABNORMAL) Basic Metabolic Panel (04/07/2025 9:10 AM EDT) Glucose 112(H) 65 - 99 mg/dL 04/07/2025 10:19 AM EDT [facility] BUN 13.1 6.0 - 20.0 mg/dL 04/07/2025 10:19 AM EDT [facility] Creatinine 0.77 0.76 - 1.27 mg/dL 04/07/2025 10:19 AM EDT [facility] Sodium 139 136 - 145 mmol/L 04/07/2025 10:19 AM EDT [facility] Potassium 4.2 3.5 - 5.2 mmol/L 04/07/2025 10:19 AM EDT [facility] Comment:Specimen hemolyzed. Result may be falsely elevated. Chloride 105 98 - 107 mmol/L 04/07/2025 10:19 AM EDT [facility] CO2 24.8 22.0 - 29.0 mmol/L 04/07/2025 10:19 AM EDT [facility] Calcium 8.6 8.6 - 10.5 mg/dL 04/07/2025 10:19 AM T [facility] BUN/Creatinine Ratio 17.0 7.0 - 25.0 04/07/2025 10:19 AM EDT [facility] Anion Gap 9.2 5.0 - 15.0 mmol/L 04/07/2025 10:19 AM T [facility] eGFR 113.2 >60.0 mL/min/1.7 3 04/07/2025 10:19 AM T [facility] Blood Venipuncture / Unknown 04/07/2025 9:10 AM EDT 04/07/2025 9:38 AM EDT Narrative [facility] - 04/07/2025 10:19 AM EDT [...] DO LAB BLOOD ORDERABLES Final Resul t [facility]
[address] [place] [address], * MRI Tibia Fibula Right With & [...] [place] 04/07/2025 9:58 AM EDT Workstation ID: [id number] Narrative 04/07/2025 9:58 AM EDT MRI TIBIA [...] [place] 04/07/2025 9:58 AM EDT Workstation ID: [id number] us Sushil Dean Jr., MD [facility] [place]LES Mary Beth l Result * Heparin Anti-Xa (04/07/2025 1:42 AM EDT) Heparin Anti-Xa (UFH) 0.38 0.30 - 0.70 IU/ml 04/07/2025 2:14 AM EDT [facility] Blood Venipuncture / Unknown 04/07/2025 1:42 AM EDT 04/07/2025 1:54 AM EDT Chelsie Navarretesapna [facility] LAB BLOOD ORDERABLES Final R esult Performing Organization Address City/[facility]/ZIP Co de Phone Number [facility]
[address] [place] [address], * Heparin Anti-Xa (04/06/2025 7:16 PM EDT) Pathologist [facility] Heparin Anti-Xa (UFH) 0.33 0.30 - 0.70 IU/ml 04/06/2025 7:50 PM EDT [facility] Blood Venipuncture / Unknown 04/06/2025 7:16 PM EDT 04/06/2025 7:35 PM EDT Cherri Beatty [facility] LAB BLOOD ORDERABLES Final Res ult Performing Organization Address City/[facility] Co de Phone Number [facility]
[address] [place] [address], * Potassium (04/06/2025 7:16 PM EDT) Pathologist [facility] Potassium 4.0 3.5 - 5.2 mmol/L 04/06/2025 7:53 PM EDT [facility] Blood Venipuncture / Unknown 04/06/2025 7:16 PM EDT 04/06/2025 7:35 PM EDT Jason Álvarez DO LAB BLOOD ORDERABLES Final Resul t Performing Organization Address City/[facility]/ZIP Co de Phone Number [facility]
[address] [place] [address], * (ABNORMAL) Heparin Anti-Xa (04/06/2025 12:36 PM EDT) Heparin Anti-Xa (UFH) 0.24(L) 0.30 - 0.70 IU/ml 04/06/2025 1:23 PM EDT [facility] Blood Venipuncture / Unknown 04/06/2025 12:36 PM EDT 04/06/2025 1:07 PM EDT Una LundbergD LAB BLOOD ORDERABLES Final R esult [facility]
[address] [address], * (ABNORMAL) Heparin Anti-Xa (04/06/2025 3:42 AM EDT) [facility] Heparin Anti-Xa (UFH) 0.25(L) 0.30 - 0.70 IU/ml 04/06/2025 5:30 AM EDT [facility] Blood Venipuncture / Unknown 04/06/2025 3:42 AM EDT 04/06/2025 4:59 AM EDT Chelsie Turpin [facility] LAB BLOOD ORDERABLES Final R esult [facility]
[address] [address], * (ABNORMAL) Basic Metabolic Panel (04/06/2025 3:42 AM EDT) [facility] Glucose 94 65 - 99 mg/dL 04/06/2025 5:59 AM EDT [facility] BUN 12.8 6.0 - 20.0 mg/dL 04/06/2025 5:59 AM EDT [facility] Creatinine 0.80 0.76 - 1.27 mg/dL 04/06/2025 5:59 AM EDT [facility] Sodium 138 136 - 145 mmol/L 04/06/2025 5:59 AM EDT [facility] Potassium 3.6 3.5 - 5.2 mmol/L 04/06/2025 5:59 AM EDT [facility] Chloride 103 98 - 107 mmol/L 04/06/2025 5:59 AM EDT [facility] CO2 24.2 22.0 - 29.0 mmol/L 04/06/2025 5:59 AM EDT [facility] Calcium 8.0(L) 8.6 - 10.5 mg/dL 04/06/2025 5:59 AM EDT [facility] BUN/Creatinine Ratio 16.0 7.0 - 25.0 04/06/2025 5:59 AM EDT [facility] Anion Gap 10.8 5.0 - 15.0 mmol/L 04/06/2025 5:59 AM EDT [facility] eGFR 111.9 >60.0 mL/min/1.7 3 04/06/2025 5:59 AM EDT [facility] Blood Venipuncture / Unknown 04/06/2025 3:42 AM EDT 04/06/2025 5:20 AM EDT Narrative [facility] - 04/06/2025 5:59 AM EDT [...] DO LAB BLOOD ORDERABLES Final Resul t [facility]
[address] [place] [address], * (ABNORMAL) CBC Auto Differential (04/06/2025 3:41 AM EDT) WBC 10.86(H) 3.40 - 10.80 10*3/mm3 04/06/2025 5:04 AM EDT [facility] RBC 5.08 4.14 - 5.80 10*6/mm3 04/06/2025 5:04 AM EDT [facility] Hemoglobin 13.9 13.0 - 17.7 g/dL 04/06/2025 5:04 AM EDT [facility] Hematocrit 43.7 37.5 - 51.0 % 04/06/2025 5:04 AM EDT [facility] MCV 86.0 79.0 - 97.0 fL 04/06/2025 5:04 AM EDT [facility] MCH 27.4 26.6 - 33.0 pg 04/06/2025 5:04 AM EDT [facility] MCHC 31.8 31.5 - 35.7 g/dL 04/06/2025 5:04 AM EDT [facility] RDW 12.8 12.3 - 15.4 % 04/06/2025 5:04 AM EDT [facility] RDW-SD 40.0 37.0 - 54.0 fl 04/06/2025 5:04 AM EDT [facility] MPV 11.7 6.0 - 12.0 fL 04/06/2025 5:04 AM EDT [facility] Platelets 115(L) 140 - 450 10*3/mm3 04/06/2025 5:04 AM EDT [facility] Neutrophil % 65.3 42.7 - 76.0 % 04/06/2025 5:04 AM EDT [facility] Lymphocyte % 20.5 19.6 - 45.3 % 04/06/2025 5:04 AM EDT [facility] Monocyte % 11.8 5.0 - 12.0 % 04/06/2025 5:04 AM EDT [facility] Eosinophil % 1.8 0.3 - 6.2 % 04/06/2025 5:04 AM EDT [facility] Basophil % 0.3 0.0 - 1.5 % 04/06/2025 5:04 AM EDT [facility] Immature Grans % 0.3 0.0 - 0.5 % 04/06/2025 5:04 AM EDT [facility] Neutrophils, Absolute 7.09(H) 1.70 - 7.00 10*3/mm3 04/06/2025 5:04 AM EDT [facility] Lymphocytes, Absolute 2.23 0.70 - 3.10 10*3/mm3 04/06/2025 5:04 AM EDT [facility] Monocytes, Absolute 1.28(H) 0.10 - 0.90 10*3/mm3 04/06/2025 5:04 AM EDT [facility] Eosinophils, Absolute 0.20 0.00 - 0.40 10*3/mm3 04/06/2025 5:04 AM EDT [facility] Basophils, Absolute 0.03 0.00 - 0.20 10*3/mm3 04/06/2025 5:04 AM EDT [facility] Immature Grans, Absolute 0.03 0.00 - 0.05 10*3/mm3 04/06/2025 5:04 AM EDT [facility] nRBC 0.0 0.0 - 0.2 /100 WBC 04/06/2025 5:04 AM EDT [facility] Blood Venipuncture / Unknown 04/06/2025 3:41 AM EDT 04/06/2025 4:58 AM EDT us Jason Álvarez DO LAB BLOOD ORDERABLES Final Resul t [facility]
[address] [place] [address], * Heparin Anti-Xa (04/05/2025 8:43 PM EDT) Heparin Anti-Xa (UFH) 0.38 0.30 - 0.70 IU/ml 04/05/2025 9:09 PM EDT [facility] Blood Venipuncture / Unknown 04/05/2025 8:43 PM EDT 04/05/2025 8:55 PM EDT Cherri Beatty [facility] LAB BLOOD ORDERABLES Final Res ult Performing Organization Address [facility] Co de Phone Number [facility]
[address] [place] [address], * CK (04/05/2025 12:15 PM EDT) Creatine Kinase 140 20 - 200 U/L 04/05/2025 1:31 PM EDT [facility] Blood Venipuncture / Unknown 04/05/2025 12:15 PM EDT 04/05/2025 1:03 PM EDT Carlton Mead MD LAB BLOOD ORDERABLES Final R esult Performing Organization Address [facility] Co de Phone Number [facility]
[address] [place] [address], [place] [phone] * (ABNORMAL) Heparin Anti-Xa (04/05/2025 12:15 PM EDT) Heparin Anti-Xa (UFH) 0.17(L) 0.30 - 0.70 IU/ml 04/05/2025 1:21 PM EDT [facility] Blood Venipuncture / Unknown 04/05/2025 12:15 PM EDT 04/05/2025 1:04 PM EDT Una LundbergD LAB BLOOD ORDERABLES Final R esult Performing Organization Address City/[facility]/ZIP Co de Phone Number [facility]
[address] [place] [address], * (ABNORMAL) aPTT (04/05/2025 3:54 AM EDT) [facility] PTT 35.3(L) 60.0 - 90.0 seconds 04/05/2025 4:31 AM EDT [facility] Blood Venipuncture / Unknown 04/05/2025 3:54 AM EDT 04/05/2025 4:15 AM EDT Narrative [facility] - 04/05/2025 4:31 AM EDT PTT = The equivalent PTT values for the therapeutic range of heparin levels at 0.3 to 0.5 U/ml are 60 to 70 seconds. Una Perla [employer] LAB BLOOD ORDERABLES Final R esult Performing Organization Address [facility] Co de Phone Number [facility]
[address] [place] [address], * Heparin Anti-Xa (04/05/2025 3:54 AM EDT) [facility] Heparin Anti-Xa (UFH) 0.30 0.30 - 0.70 IU/ml 04/05/2025 4:32 AM EDT [facility] Blood Venipuncture / Unknown 04/05/2025 3:54 AM EDT 04/05/2025 4:15 AM EDT [employer] LAB BLOOD ORDERABLES Final R esult Performing Organization Address City/[facility] Co de Phone Number [facility]
[address] [address], * (ABNORMAL) CBC Auto Differential (04/05/2025 3:54 AM EDT) [facility] WBC 11.18(H) 3.40 - 10.80 10*3/mm3 04/05/2025 4:20 AM EDT [facility] RBC 5.00 4.14 - 5.80 10*6/mm3 04/05/2025 4:20 AM EDT [facility] Hemoglobin 13.9 13.0 - 17.7 g/dL 04/05/2025 4:20 AM EDT [facility] Hematocrit 42.4 37.5 - 51.0 % 04/05/2025 4:20 AM EDT [facility] MCV 84.8 79.0 - 97.0 fL 04/05/2025 4:20 AM EDT [facility] MCH 27.8 26.6 - 33.0 pg 04/05/2025 4:[facility] MCHC 32.8 31.5 - 35.7 g/dL 04/05/2025 4:20 AM [facility] RDW 12.9 12.3 - 15.4 % 04/05/2025 4:20 AM [facility] RDW-SD 39.7 37.0 - 54.0 fl 04/05/2025 4:20 AM [facility] MPV 10.2 6.0 - 12.0 fL 04/05/2025 4:20 AM [facility] Platelets 160 140 - 450 10*3/mm3 04/05/2025 4:20 AM [facility] Neutrophil % 73.5 42.7 - 76.0 % 04/05/2025 4:20 [facility] Lymphocyte % 14.0(L) 19.6 - 45.3 % 04/05/2025 4:20 AM EDT [facility] Monocyte % 11.0 5.0 - 12.0 % 04/05/2025 4:20 [facility] Eosinophil % 0.8 0.3 - 6.2 % 04/05/2025 4:20 [facility] Basophil % 0.3 0.0 - 1.5 % 04/05/2025 4:20 AM EDT [facility] Immature Grans % 0.4 0.0 - 0.5 % 04/05/2025 4:20 AM EDT [facility] Neutrophils, Absolute 8.23(H) 1.70 - 7.00 10*3/mm3 04/05/2025 4:20 AM EDT [facility] Lymphocytes, Absolute 1.56 0.70 - 3.10 10*3/mm3 04/05/2025 4:20 AM EDT [facility] Monocytes, Absolute 1.23(H) 0.10 - 0.90 10*3/mm3 04/05/2025 4:20 AM EDT [facility] Eosinophils, Absolute 0.09 0.00 - 0.40 10*3/mm3 04/05/2025 4:20 AM EDT [facility] Basophils, Absolute 0.03 0.00 - 0.20 10*3/mm3 04/05/2025 4:20 AM EDT [facility] Immature Grans, Absolute 0.04 0.00 - 0.05 10*3/mm3 04/05/2025 4:20 AM EDT [facility] nRBC 0.0 0.0 - 0.2 /100 WBC 04/05/2025 4:20 AM EDT [facility] Blood Venipuncture / Unknown 04/05/2025 3:54 AM EDT 04/05/2025 4:16 AM EDT Una Perla PharmD LAB BLOOD ORDERABLES Final R esult [facility]
[address] [place] [address], * (ABNORMAL) Basic Metabolic Panel (04/05/2025 3:54 AM EDT) [facility] Signature Glucose 152(H) 65 - 99 mg/dL 04/05/2025 4:40 AM EDT [facility] BUN 17.3 6.0 - 20.0 mg/dL 04/05/2025 4:40 AM T [facility] Creatinine 0.92 0.76 - 1.27 mg/dL 04/05/2025 4:40 AM EDT [facility] Sodium 136 136 - 145 mmol/L 04/05/2025 4:40 AM EDT [facility] Potassium 3.9 3.5 - 5.2 mmol/L 04/05/2025 4:40 AM EDT [facility] Chloride 103 98 - 107 mmol/L 04/05/2025 4:40 AM EDT [facility] CO2 24.0 22.0 - 29.0 mmol/L 04/05/2025 4:40 AM T [facility] Calcium 7.8(L) 8.6 - 10.5 mg/dL 04/05/2025 4:40 AM [facility] BUN/Creatinine Ratio 18.8 7.0 - 25.0 04/05/2025 4:40 AM T [facility] Anion Gap 9.0 5.0 - 15.0 mmol/L 04/05/2025 4:40 AM [facility] eGFR 105.2 >60.0 mL/min/1.7 3 04/05/2025 4:40 AM [facility] Blood Venipuncture / Unknown 04/05/2025 3:54 AM EDT 04/05/2025 4:15 AM EDT [facility] - 04/05/2025 4:40 AM EDT GFR [...] ORDERABLES Final Re sult Performing Organization Address [facility] Co de Phone Number [facility]
[address] [place] [address], * (ABNORMAL) aPTT (04/05/2025 12:18 AM EDT) PTT 33.6(L) 60.0 - 90.0 seconds 04/05/2025 12:53 AM EDT [facility] Blood Venipuncture / Unknown 04/05/2025 12:18 AM EDT 04/05/2025 12:37 AM EDT Narrative [facility] - 04/05/2025 12:53 AM EDT PTT = The equivalent PTT values for the therapeutic range of heparin levels at 0.3 to 0.5 U/ml are 60 to 70 seconds. Una Perla PharmD LAB BLOOD ORDERABLES Final R esult Performing Organization Address [facility] Co de Phone Number [facility]
[address] [place] [address], [place] [phone] * (ABNORMAL) Protime-INR (04/05/2025 12:18 AM EDT) Protime 15.9(H) 12.2 - 15.3 Seconds 04/05/2025 12:53 AM EDT [facility] INR 1.19(H) 0.89 - 1.12 04/05/2025 12:53 AM EDT [facility] Blood Venipuncture / Unknown 04/05/2025 12:18 AM EDT 04/05/2025 12:37 AM EDT Una Perla PharmD LAB BLOOD ORDERABLES Final R esult Performing Organization Address City/[facility] Co de Phone Number [facility]
[address] [place] [address], [place] [phone] * Heparin Anti-Xa (04/05/2025 12:18 AM EDT) Heparin Anti-Xa (UFH) 0.39 0.30 - 0.70 IU/ml 04/05/2025 12:54 AM EDT [facility] Blood Venipuncture / Unknown 04/05/2025 12:18 AM EDT 04/05/2025 12:37 AM EDT Una Perla PharmD LAB BLOOD ORDERABLES Final R esult [facility]
[address] [place] [address], * MRI Tibia Fibula Right With & [...] MD 04/04/2025 11:00 PM EDT Workstation ID: [id number] Narrative 04/04/2025 11:00 PM EDT MRI TIBIA [...] MD 04/04/2025 11:00 PM EDT Workstation ID: [id number] us Leonora Shepherd MD IMG MRI ORDERABLES Final Resu lt * POC Creatinine (04/04/2025 2:49 PM EDT) [facility] Creatinine 1.10 0.60 - 1.30 mg/dL 04/07/2025 7:14 PM EDT [facility] Comment:Serial Number: [id number] 7Operator: [id number] Venous Blood 04/04/2025 2:49 PM EDT 04/07/2025 7:14 PM EDT Jason Álvarez DO POINT OF CARE TEST ORDERABLES Fi nal Result [facility]
[address] [place] [address], * (ABNORMAL) CBC Auto Differential (04/04/2025 2:47 PM EDT) [facility] WBC 12.72(H) 3.40 - 10.80 10*3/mm3 04/04/2025 2:56 PM EDT [facility] RBC 5.64 4.14 - 5.80 10*6/mm3 04/04/2025 2:56 PM EDT [facility] Hemoglobin 15.3 13.0 - 17.7 g/dL 04/04/2025 2:56 PM EDT [facility] Hematocrit 47.9 37.5 - 51.0 % 04/04/2025 2:56 PM EDT [facility] MCV 84.9 79.0 - 97.0 fL 04/04/2025 2:56 PM EDT [facility] MCH 27.1 26.6 - 33.0 pg 04/04/2025 2:56 PM EDT [facility] MCHC 31.9 31.5 - 35.7 g/dL 04/04/2025 2:56 PM EDT [facility] RDW 13.1 12.3 - 15.4 % 04/04/2025 2:[facility] RDW-SD 40.3 37.0 - 54.0 fl 04/04/2025 2:56 PM EDT [facility] MPV 9.4 6.0 - 12.0 fL 04/04/2025 2:56 PM EDT [facility] Platelets 232 140 - 450 10*3/mm3 04/04/2025 2:56 PM EDT [facility] Neutrophil % 74.9 42.7 - 76.0 % 04/04/2025 2:56 PM EDT [facility] Lymphocyte % 13.1(L) 19.6 - 45.3 % 04/04/2025 2:56 [facility] Monocyte % 11.2 5.0 - 12.0 % 04/04/2025 2:56 [facility] Eosinophil % 0.4 0.3 - 6.2 % 04/04/2025 2:56 PM EDT [facility] Basophil % 0.2 0.0 - 1.5 % 04/04/2025 2:[facility] Immature Grans % 0.2 0.0 - 0.5 % 04/04/2025 2:56 [facility] Neutrophils, Absolute 9.52(H) 1.70 - 7.00 10*3/mm3 04/04/2025 2:56 PM [facility] Lymphocytes, Absolute 1.66 0.70 - 3.10 10*3/mm3 04/04/2025 2:56 PM EDT [facility] Monocytes, Absolute 1.43(H) 0.10 - 0.90 10*3/mm3 04/04/2025 2:56 PM EDT [facility] Eosinophils, Absolute 0.05 0.00 - 0.40 10*3/mm3 04/04/2025 2:[facility] Basophils, Absolute 0.03 0.00 - 0.20 10*3/mm3 04/04/2025 2:56 PM EDT [facility] Immature Grans, Absolute 0.03 0.00 - 0.05 10*3/mm3 04/04/2025 2:56 PM EDT [facility] nRBC 0.0 0.0 - 0.2 /100 WBC 04/04/2025 2:56 PM EDT [facility] Blood Venipuncture / Unknown 04/04/2025 2:47 PM EDT 04/04/2025 2:52 PM EDT Mario Ortiz GhanshyamASSURED INFORMATION SECURITY LAB BLOOD ORDERABLES Fin al Result Performing Organization Address City/[facility]/ZIP Co de Phone Number [facility]
[address] [place] [address], * (ABNORMAL) C-reactive Protein (04/04/2025 2:47 PM EDT) C-Reactive Protein 8.57(H) 0.00 - 0.50 mg/dL 04/04/2025 3:26 PM EDT [facility] Blood Venipuncture / Unknown 04/04/2025 2:47 PM EDT 04/04/2025 2:52 PM EDT Mario Ortiz GhanshyamASSURED INFORMATION SECURITY LAB BLOOD ORDERABLES Fin al Result Performing Organization Address [facility] de Phone Number [facility]
[address] [place] [address], * (ABNORMAL) Sedimentation Rate (04/04/2025 2:47 PM EDT) Sed Rate 51(H) 0 - 15 mm/hr 04/04/2025 3:06 PM EDT [facility] Blood Venipuncture / Unknown 04/04/2025 2:47 PM EDT 04/04/2025 2:52 PM EDT Mario Ortiz [facility]UR[facility] LAB BLOOD ORDERABLES Fin al Result Performing Organization Address City/[facility]/ZIP Co de Phone Number [facility]
[address] [place] [address], * Comprehensive Metabolic Panel (04/04/2025 2:47 PM EDT) [facility] Glucose 90 65 - 99 mg/dL 04/04/2025 3:26 PM EDT [facility] BUN 18.3 6.0 - 20.0 mg/dL 04/04/2025 3:26 PM EDT [facility] Creatinine 0.94 0.76 - 1.27 mg/dL 04/04/2025 3:26 PM EDT [facility] Sodium 136 136 - 145 mmol/L 04/04/2025 3:26 PM EDT [facility] Potassium 3.8 3.5 - 5.2 mmol/L 04/04/2025 3:26 PM EDT [facility] Chloride 100 98 - 107 mmol/L 04/04/2025 3:26 PM EDT [facility] CO2 25.3 22.0 - 29.0 mmol/L 04/04/2025 3:26 PM EDT [facility] Calcium 8.6 8.6 - 10.5 mg/dL 04/04/2025 3:26 PM EDT [facility] Total Protein 7.3 6.0 - 8.5 g/dL 04/04/2025 3:26 PM EDT [facility] Albumin 4.1 3.5 - 5.2 g/dL 04/04/2025 3:26 PM EDT [facility] ALT (SGPT) 26 1 - 41 U/L 04/04/2025 3:26 PM EDT [facility] AST (SGOT) 25 1 - 40 U/L 04/04/2025 3:26 PM EDT [facility] Alkaline Phosphatase 106 39 - 117 U/L 04/04/2025 3:26 PM EDT [facility] Total Bilirubin 1.0 0.0 - 1.2 mg/dL 04/04/2025 3:26 PM EDT [facility] Globulin 3.2 gm/dL 04/04/2025 3:26 PM EDT [facility] Comment:Calculated Result A/G Ratio 1.3 g/dL 04/04/2025 3:26 PM EDT [facility] BUN/Creatinine Ratio 19.5 7.0 - 25.0 04/04/2025 3:26 PM EDT [facility] Anion Gap 10.7 5.0 - 15.0 mmol/L 04/04/2025 3:26 PM EDT [facility] eGFR 102.5 >60.0 mL/min/1.7 3 04/04/2025 3:26 PM EDT [facility] Blood Venipuncture / Unknown 04/04/2025 2:47 PM EDT 04/04/2025 2:52 PM EDT Narrative [facility] - 04/04/2025 3:26 PM EDT [...] DO LAB BLOOD ORDERABLES Fin al Result [facility]
[address] [place] [address], documented in this encounter Visit Diagnoses Diagnosis [...] 04/05/2025 3:33 PM EDT 2,000 Units heparin 87230 units/250 mL (100 units/mL) in 0.45 % [...] BPA Driven Protocol Open Order & Select [facility] Electrolyte Replacement Protocol Algorithm [...] BPA Driven Protocol Open Order & Select [facility] Electrolyte Replacement Protocol Algorithm [...] disposal. 0831 (Given - Provider: Amber Salazar, AIR BAG [employer]IPPER)194 (Given - Provider: Anahy Marcelino, AIR BAG STRIPPER)2129 (Canceled Entry - Provider: Anahy Marcelino RRT [...] Continuous Medication Order 04/09/2025 04/10/2025 04/11/2025 heparin 36195 units/250 mL (100 units/mL) in 0.45 % [...] BPA Driven Protocol [facility] Electrolyte Replacement Protocol Algorithm [...] BPA Driven Protocol [employer] [facility] Electrolyte Replacement Protocol Algorithm [...] documented as of this encounter Care Teams Skinner Pelts Relationship Specialty Start Date End Date Provider, [place] [id number] PCP - General 05/09/23 documented as of this encounter
--- OUTSIDE RECORDS SUMMARY | 2025-04-07 18:00 | XMS_ITS | Encounter Summary ---
Author Organization [facility] Address [address] [place] [address] Care Team Providers Care Director Of Sustainability Programs Name Role Phone Provider, No Known Primary Care Provider Unavail able Reason for Visit * Reason Comments Leg Swelling * Auth/Cert Specialty Diagnoses / Procedures Referred By Contac t Referred To Contact Diagnoses Right BKA infection Referral ID Status Reason Start Date Expiration Date Visits Re quested Visits Authorized [id number] 1 1 Encounter Details Date Type Department Care Team (Late st Contact Info) Description 04/07/2025 6:00 PM EDT - 04/07/2025 6:52 PM EDT Surgery [facility] OR [address] [place] [address] Sushil Dean Jr., MD [address] [place] [address] [address] [id number] LEG DEBRIDEMENT, IRRIGATION Social History Tobacco Use Types Packs/Day Years Used Date Smoking Tobacco: Never Smokeless Tobacco: Never Tobacco Cessation:Counseling Given: Not Answered Alcohol Use Standard Drinks/Week Comments Not Currently 0 (1 standard drink = 0.6 oz pur e alcohol) [facility] Utilities Answer Date Recorded In the past 12 months has [employer] electric, gas, oil, or water company threatened [...] or training? Not on file Preferred Language Malaysian 04/07/2025 Sex and Gender Information Value Date [...] 2:25 PM EDT Cherri Grimm RN * [place] Suicide Severity Rating Scale (Screener/Recent Self-Report) Question [...] Date/Time Wound Culture - Swab, Leg, Right [[id number]] (Abnormal) (Susceptibility) Collected: 04/07/252106 Lab Status: Final [...] Units Date/Time FL C Arm During Surgery [[id number]] Resulted: 04/07/252137 Updated: 04/07/252137 Narrative: This procedure was auto-finalized with no dictation required. MRI Tibia Fibula Right With & Without Contrast [[id number]] Collected: 04/07/25 0938 Updated: 04/07/25 1001 Narrative: [...] Buenrostro 04/07/2025 9:58 AM EDT Workstation ID: [id number] MRI Tibia Fibula Right With & Without Contrast [[id number]] Collected: 04/04/252256 Updated: 04/04/252302 Narrative: MRI TIBIA [...] represent a small area of phlegmonous change ([id number] image 10) measuring approximately 1.6 cm which [...] MD 04/04/2025 11:00 PM EDT Workstation ID: [id number] Pending Labs Order Current Status Fungus Culture [...] Male) Date of 1980 Social Security Number [id number] [place] [address] [place] [address] Hoahaoism Unknown Marital Status Unknown Admission Date 04/04/2025 Admission Type Emergency Admitting Provider Jadyn Richardson DO Attending Provider Jadyn Richardson DO Department, Room/Bed [facility] 5G, S565/1 Discharge Date Discharge [...] Group [place] [id number] Payor Plan Address Payor Plan Phone Number Payor Plan Fax Number Effective Dates [employer] [address] [address] 08/10/2023 - None Entered [facility] [address] Subscriber Name Subscriber Date Member ID WON DENNIS 1980 [id number] Emergency Contacts Support Teacher (Rel.) Home Phone Work Phone Mobile Phone Avril Dennis (Spouse) -- -- [phone] Robert Hackett (Relative) -- -- [phone] [facility] 5G [address] [facility] [address] Patient: ROOM: [facility] Won Dennis [address] [facility] [place] [address] : 1980 SSN: [id number] Sex: M PCP: Provider, No Known Emergency Contact Information Name Relation Home Work Mobile Avril Dennis Spouse [phone] Other Contacts Name Relation Home Work Mobile Robert Hackett Relative [phone] INSURANCE PAYOR PLAN GROUP # SUBSCRIBER ID Primary: Secondary: MEDICARE [employer] [id number] Admitting Diagnosis: 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] Order Date: Apr 09, 2025 Case Management Bunch Breaker Consult (Order ID: [id number]) Diagnosis: Priority: Routine Expected Date: Expiration Date: Interval: Once Count: Comments: Outpatient orders: 1. Outpatient intravenous antibiotic therapy: Daptomycin 800 mg IV daily to be supplied by [facility] 2. Home health to perform [...] INFECTIOUS DISEASE Progress Note Won Dennis 1980 [id number] Date of Consult: 04/10/2025 Admission Date: 04/04/2025 [...] which prompted him to seek treatment at [facility]. He is known to [...] Jr., MD, 20 mg at 04/09/25906 heparin 04421 units/250 mL (100 units/mL) in 0.45 % [...] vancomycin 2750 mg/500 mL 0.9% NS IVPB ([facility]) Ordering Provider: Mario Crowley, DO [...] Units Date/Time FL C Arm During Surgery [[id number]] Resulted: 04/07/252137 Updated: 04/07/252137 Narrative: This procedure was auto-finalized with no dictation required. MRI Tibia Fibula Right With & Without Contrast [[id number]] Collected: 04/07/2538 Updated: 04/07/25 1001 Narrative: MRI [...] Buenrostro 04/07/2025 9:58 AM EDT Workstation ID: [id number] Impression: Recurrent Right BKA stump abscess/cellulitis- this [...] disposition with the pharmacist at [facility] today. I will sign off Outpatient orders: 1. Outpatient intravenous antibiotic therapy: Daptomycin 800 mg IV daily to be supplied by [facility] 2. Home health to perform weekly PICC [...] 04/10/251323 Creation Time: 04/10/251323 Signed Expand All [facility] PROGRESS NOTE Patient Name: Won [...] Date/Time Wound Culture - Swab, Leg, Right [[id number]] (Abnormal) (Susceptibility) Collected: 04/07/252106 Lab Status: Final [...] Row Name 04/06/25 1143 Sit-Stand Transfer Sit-Stand [place] (Transfers) modified independence - Comment, (Sit-Stand Transfer) Pt stood from recliner. Not holding onto walker, pt able to pull his pants up while balancing on his one leg. -LM Row Name 04/06/25 1143 Gait/Stairs (Locomotion) [place] Level (Gait) modified independence - Distance in [...] documentation. Clinical Impression [facility] 04/06/25 1146 Pain Pretreatment Pain Rating 0/10 - no pain -LM Posttreatment Pain Rating 0/10 - no pain -LM [facility] 04/06/25 1146 Plan of Care [...] Nurse Physical Therapy Education Title: PT OT PIN BALL MACHINE MECHANIC Therapies (Done) Topic: Physical Therapy (Done) Point: Mobility training (Done) Learning Progress Summary Patient Acceptance, E, VU,DU by at 04/06/2025 1147 Point: Precautions (Done) Learning Progress Summary Patient Acceptance, E, VU,DU by at 04/06/2025 1147 User Cabrera Initials Effective Dates Name Provider Type [facility] 01/24/25 - Susan Cavazos, PT Physical [...] Description Service Date Service Provider Modifiers Qty [id number] PT EVAL LOW COMPLEXITY 3 04/06/2025 Susan [...] mg Daily 04/05/2025 -- Route: Oral heparin 71330 units/250 mL (100 units/mL) in 0.45 % [...] MD April 21 vs April 22 [facility] [address], [address] [facility], [address] Please schedule at [phone] VONDA Garcia 04/11/25 08:32 EDT Cosigned by Sushil eDan Jr., MD at 04/19/2025 10:33 AM EDT [...] Date/Time Wound Culture - Swab, Leg, Right [[id number]] (Abnormal) (Susceptibility) Collected: 04/07/252106 Lab Status: Final [...] mg Daily 04/05/2025 -- Route: Oral heparin 32628 units/250 mL (100 units/mL) in 0.45 % [...] MD April 21 vs April 22 [facility] [address] [facility], [address] [facility], [address] Please schedule at [phone] VONDA Garcia 04/10/25 09:01 EDT Cosigned by Sushil Dean Jr., MD at 04/19/2025 10:33 AM EDT Associated attestation - Sushil Dean Jr., MD - 04/19/2025 10:33 AM EDT I have reviewed this documentation and agree. * Carlton Mead MD - 04/10/2025 7:38 AM EDT Images from the original note were not included. INFECTIOUS DISEASE Progress Note Won Dennis 1980 [id number] Date of Consult: 04/10/2025 Admission Date: 04/04/2025 [...] which prompted him to seek treatment at [facility]. He is known to [...] IRRIGATION; Surgeon: Sushil Dean Jr., MD; Location: [facility]; Service: Orthopedics; Laterality: Right; PLACEMENT OF WOUND VAC Right 04/07/2025 Procedure: WOUND VACUUM ASSISTED CLOSURE; Surgeon: Sushil Dean Jr., MD; Location: [facility]; Service: Orthopedics; Laterality: Right; WOUND CLOSURE [...] Jr., MD, 20 mg at 04/09/25906 heparin 90916 units/250 mL (100 units/mL) in 0.45 % [...] Units Date/Time FL C Arm During Surgery [[id number]] Resulted: 04/07/252137 Updated: 04/07/252137 Narrative: This procedure was auto-finalized with no dictation required. MRI Tibia Fibula Right With & Without Contrast [[id number]] Collected: 04/07/25937 Updated: 04/07/25 100 Narrative: MRI [...] Buenrostro 04/07/2025 9:58 AM EDT Workstation ID: [id number] Impression: Recurrent Right BKA stump abscess/cellulitis- this [...] disposition with the pharmacist at [facility] today. I will sign off Outpatient orders: 1. Outpatient intravenous antibiotic therapy: Daptomycin 800 mg IV daily to be supplied by [facility] 2. Home health to perform weekly PICC [...] Date/Time Wound Culture - Swab, Leg, Right [[id number]] (Abnormal) Collected: 04/07/252106 Lab Status: Preliminary result [...] -- Admin Instructions: Open Order & Select [facility] Electrolyte Replacement Protocol Algorithm to [...] mg Daily 04/05/2025 -- Route: Oral heparin 72520 units/250 mL (100 units/mL) in 0.45 % [...] -- Admin Instructions: Open Order & Select [facility] Electrolyte Replacement Protocol Algorithm to [...] 2 weeks for incision check, radiographs [facility] [address] [facility] [facility], [address] [facility], [address] Please schedule at [phone] VONDA Garcia 04/09/25 09:18 EDT Cosigned by Sushil Dean Jr., MD at 04/19/2025 10:33 AM EDT Associated attestation - Sushil Dean Jr., MD - 04/19/2025 10:33 AM EDT I have reviewed this documentation and agree. * Carlton Mead MD - 04/09/2025 8:25 AM EDT Images from the original note were not included. INFECTIOUS DISEASE Progress Note Won Dennis 1980 [id number] Date of Consult: 04/09/2025 Admission Date: 04/04/2025 [...] which prompted him to seek treatment at [facility]. He is known to [...] Surgeon: Sushil Dean Jr., MD; Location: [facility]; Service: Orthopedics; Laterality: Right; PLACEMENT OF [...] MD, 20 mg at 04/08/25 0800 heparin 02955 units/250 mL (100 units/mL) in 0.45 % [...] Units Date/Time FL C Arm During Surgery [[id number]] Resulted: 04/07/252137 Updated: 04/07/252137 Narrative: This procedure was auto-finalized with no dictation required. MRI Tibia Fibula Right With & Without Contrast [[id number]] Collected: 04/07/25 0938 Updated: 04/07/25 1001 Narrative: [...] Chitra 04/07/2025 9:58 AM EDT Workstation ID: [id number] Impression: Recurrent Right BKA stump abscess/cellulitis- this [...] mg IV daily to be supplied by [facility] 2. Home health to perform [...] Buenrostro 04/07/2025 9:58 AM EDT Workstation ID: [id number] I have personally reviewed the therapy plans: [...] -- Admin Instructions: Open Order & Select [facility] Electrolyte Replacement Protocol Algorithm to [...] mg Daily 04/05/2025 -- Route: Oral heparin 46462 units/250 mL (100 units/mL) in 0.45 % [...] INFECTIOUS DISEASE Progress Note Won Dennis 1980 [id number] Date of Consult: 04/08/2025 Admission Date: 04/04/2025 [...] which prompted him to seek treatment at [facility]. He is known to [...] Oral, Q6H PRN, 500 mg at 04/06/25 2974 OR acetaminophen (TYLENOL) 160 MG/5ML oral solution [...] Jr., MD, 20 mg at 04/07/25950 heparin 88059 units/250 mL (100 units/mL) in 0.45 % [...] vancomycin 2750 mg/500 mL 0.9% NS IVPB ([facility]) Ordering Provider: Mario Crowley, DO [...] Units Date/Time FL C Arm During Surgery [[id number]] Resulted: 04/07/252137 Updated: 04/07/252137 Narrative: This procedure was auto-finalized with no dictation required. MRI Tibia Fibula Right With & Without Contrast [[id number]] Collected: 04/07/25 0938 Updated: 04/07/25 1001 Narrative: [...] Buenrostro 04/07/2025 9:58 AM EDT Workstation ID: [id number] Impression: 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 (Treated by ID in [place] Dr. Harris). Dr. Torres treated him with [...] Buenrostro 04/07/2025 9:58 AM EDT Workstation ID: [id number] I have personally reviewed the therapy plans: [...] INFECTIOUS DISEASE Progress Note Won Dennis 1980 [id number] Date of Consult: 04/07/2025 Admission Date: 04/04/2025 [...] which prompted him to seek treatment at [facility]. He is known to [...] MD, 20 mg at 04/06/25 0900 heparin 87896 units/250 mL (100 units/mL) in 0.45 % [...] With & Without Contrast - In process [[id number]] Resulted: 04/07/25828 Updated: 04/07/25828 This result has not been signed. Information might be incomplete. MRI Tibia Fibula Right With & Without Contrast [[id number]] Collected: 04/04/252256 Updated: 04/04/253 Narrative: MRI TIBIA [...] represent a small area of phlegmonous change (mminrj43 image 10) measuring approximately 1.6 cm which [...] MD 04/04/2025 11:00 PM EDT Workstation ID: [id number] Impression: 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 (Treated by ID in [place] Dr. Harris). Dr. Torres treated him with [...] -- Admin Instructions: Open Order & Select [facility] Electrolyte Replacement Protocol Algorithm to [...] mg Daily 04/05/2025 -- Route: Oral heparin 59804 units/250 mL (100 units/mL) in 0.45 % [...] -- Admin Instructions: Open Order & Select [facility] Electrolyte Replacement Protocol Algorithm to [...] MD 04/04/2025 11:00 PM EDT Workstation ID: [id number] I have personally reviewed the therapy plans: [...] to display. Brief Hospital Course to date: oWn Dennis is a 44 y.o. male with [...] mg Daily 04/05/2025 -- Route: Oral heparin 64217 units/250 mL (100 units/mL) in 0.45 % [...] -- Admin Instructions: Open Order & Select [facility] Electrolyte Replacement Protocol Algorithm to [...] -- Admin Instructions: Open Order & Select [facility] Electrolyte Replacement Protocol Algorithm to [...] INFECTIOUS DISEASE follow up. Won Dennis 1980 [id number] Date of Consult: 04/06/2025 Admission Date: 04/04/2025 Requesting Provider: Evaluating Physician: Dr. Mable Maed MD. 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 He c/o swelling with erythema for several days after a new prosthesis was fitted, which prompted him to seek treatment at [facility]. He is known to [...] MD, 20 mg at 04/06/25 0900 heparin 75059 units/250 mL (100 units/mL) in 0.45 % [...] Tibia Fibula Right With & Without Contrast [[id number]] Collected: 04/04/252256 Updated: 04/04/252302 Narrative: MRI TIBIA [...] MD 04/04/2025 11:00 PM EDT Workstation ID: [id number] Impression: 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 (Treated by ID in [place] Dr. Harris). Dr. Torres treated him with [...] No knee joint effusion. Electronically Signed: Leigh Jonse MD 04/04/2025 11:00 PM EDT Workstation ID: [id number] I have personally reviewed the therapy plans: [...] MD 04/04/2025 11:00 PM EDT Workstation ID: [id number] Assessment & Plan Assessment & Plan Won [...] Order(s): IP CONSULT TO ORTHOPEDIC SURGERY [facility], [facility] [address] [address] Orthopedic Consult Patient: Won Dennis Date of Admission: 04/04/2025 4:10 PM Date of : 1980 Attending Physician: Jason Álvarez DO Consulting Physician: Sushil Dean Jr, MD Chief Complaint: 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 male admitted to [facility] with 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]. [...] evaluated in the emergency department in [place], was discharged with instructions for follow-up. He [...] tablet by mouth Daily. 04/03/2025 Morning Lactobacillus-Inulin ([facility]) capsule Take 200 mg by mouth [...] MD 04/04/2025 11:00 PM EDT Workstation ID: [id number] Assessment: Right BKA infection 44-year-old male with [...] DISEASE CONSULT/INITIAL HOSPITAL VISIT Won Dennis 1980 [id number] Date of Consult: 04/05/2025 Admission Date: 04/04/2025 [...] which prompted him to seek treatment at [facility]. He is known to [...] Leonora Shepherd MD, 40 mg at 04/04/25 1372 sennosides-docusate (PERICOLACE) 8.6-50 MG per tablet 2 [...] MD, 20 mg at 04/05/25 09 heparin 36089 units/250 mL (100 units/mL) in 0.45 % [...] Leonora Shepherd MD, 10 mg at 04/04/25 4241 Pharmacy to Dose Heparin, , Not Applicable, [...] Tibia Fibula Right With & Without Contrast [[id number]] Collected: 04/04/252256 Updated: 04/04/252302 Narrative: MRI TIBIA [...] represent a small area of phlegmonous change (ecrhec37 image 10) measuring approximately 1.6 cm which [...] MD 04/04/2025 11:00 PM EDT Workstation ID: [id number] Impression: 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 (Treated by ID in [place] Dr. Harris). Dr. Torrse treated him with [...] MD - 04/08/2025 3:51 PM EDT [facility] OPERATIVE REPORT PATIENT NAME: Won Dennis DATE OF : 1980 PREOP DIAGNOSIS: Right Right below-knee amputation infection POSTOP DIAGNOSIS: Same. PROCEDURE: Right Right 51127: Secondary closure below-knee amputation SURGEON: Sushil Dean MD OPERATIVE TEAM: Aquatic Director: Susi Grullon RN Scrub Person: Mary Paredes Scrub Person Extra: Hortencia Toribio Other: Katt Gotti RN; Charis Neville RN ANESTHETIST: Anesthesiologist: Ulises Hoffman MD KILN LOADER: Stan Casillas CRNA Student Nurse Organisational Psychologist: Karol Albert SRNA ANESTHESIA: Choice ESTIMATED BLOOD [...] CULTURE (Canceled) Sushil Dean Jr., MD 04/08/25 5720 Description: RIGHT LEG DEEP WOUND FOR CULTURE [...] MD - 04/07/2025 9:03 PM EDT [facility], [place] [address] OPERATIVE REPORT PATIENT NAME: Won Dennis DATE OF : 1980 PREOP DIAGNOSIS: Right Right below knee amputation stump infection POSTOP DIAGNOSIS: Same. PROCEDURE: Right Right 08896: Incision and drainage of surgical site infection 22915: Debridement of skin, subcutaneous tissue, muscle 52175: Wound vacuum-assisted closure SURGEON: Sushil Dean MD OPERATIVE TEAM: Aquatic Director: Anum Sanchez RN Scrub Person: Hortencia Toribio; Gerald Ivey TOBACCO SIEVE OPERATOR: Anesthesiologist: Luci Alonso DO ANESTHESIA: General [...] ago swellling of the area. seen at [facility] yesterday for CT and [...] this chart in the absence of a solar hot water installer. No orders to display RADIOLOGY: [x] Radiologist's [...] is discharging home with outpatient infusion at [facility]. He has an appointment with [facility] at 8:00 am tomorrow. They will do PICC line dressing changes. DEBRA has spoke with Dena at [facility] today multiple times to get [...] to get IV ABX at home with [facility]; however, Medicaid lapsed on 04/08. DEBRA was unaware until this morning that Medicaid has lapsed. Patient explained that he has Medicare A and B. CM spoke with KELLEE and given themhis Medicare number [id number], she sent it to Admission. DEBRA spoke with Kerri, with [facility], and explained that he had Medicare A and B. However, it will not cover home infusion. It will be $64.00 a day out of packet. Patients can go to the Infusion center at [facility], and it will cover the cost as an outpatient. He will need to go there every day for infusion. They will be able to do the patients' PICC line dressing changes and lab work. DEBRA called Dena [facility] Outpatient infusion center they can accept patient and start him. He is known for their facility. The Facility will need to run it through his insurance first. CM faxed the orders over to [facility] at [phone]. CM will follow up with them tomorrow at [facility] to make sure they received [...] 04/09/2025 2:51 PM EDT Continued Stay Note [facility] Patient Name: Won Dennis Today's Date: 04/09/2025 Admit Date: 04/04/2025 Plan: Home Discharge Plan Row Name 04/09/25 1311 Plan Plan Home Patient/Family in Agreement with Plan yes Plan Comments CM spoke with patient at bedside today. Wheelchair from [employer] is at bedside. Patient getting PICC line [...] note were not included. Discharge Planning Assessment [facility] Patient Name: Won Dennis Today's Date: [...] with family Patient/Family Anticipated Services at Transition pillowcase folderclinical trial data manager Anticipated family or friend will provide Discharge Needs Assessment Equipment Currently Used at Home glucometer;shower chair;pulse ox;bp cuff;prosthesis;crutches Equipment Needed After Discharge none Discharge Plan Row Name 04/07/25 1144 Plan Plan Home Patient/Family in Agreement with Plan yes Plan Comments CM spoke with patient at bedside today. Patient lives with and his 5 kids in [facility]. 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 He has walker, cane, shower chair, and crutches. He requested a wheelchair for home. CM will order [facility]. He is not current with home health services. PCP is Dr. Jordan. Insurance is [facility] Medicaid [place]. Patient discharge plan is home with priavte transport. CM will follow for any discharge needs. Final Discharge Disposition Code 01 - home or self-care Continued Care and Services - Admitted Since 04/04/2025 No active coordination exists. Demographic Summary Row Name 04/07/25 1143 General Information Arrived From hospital Preferred Language Malaysian Functional Status Row Name 04/07/25 1143 Functional [...] - 10.80 10*3/mm3 04/11/2025 4:02 AM EDT [facility] RBC 4.70 4.14 - 5.80 10*6/mm3 04/11/2025 4:02 AM [facility] Hemoglobin 12.8(L) 13.0 - 17.7 g/dL 04/11[facility]2025 [facility] Hematocrit 40.5 37.5 - 51.0 % 04/11/2025 4:02 AM [facility] MCV 86.2 79.0 - 97.0 fL 04/11/2025 4:02 [facility] MCH 27.2 26.6 - 33.0 pg 04/11/2025 4:02 AM [facility] MCHC 31.6 31.5 - 35.7 g/dL 04/11/2025 4:02 AM [facility] RDW 12.9 12.3 - 15.4 % 04/11/2025 4:02 AM [facility] RDW-SD 40.5 37.0 - 54.0 fl 04/11/2025 4:02 AM [facility] MPV 9.2 6.0 - 12.0 fL 04/11/2025 4:02 AM [facility] Platelets 267 140 - 450 10*3/mm3 04/11/2025 4:02 AM [facility] Neutrophil % 59.5 42.7 - 76.0 % 04/11/2025 4:02 AM [facility] Lymphocyte % 26.3 19.6 - 45.3 % 04/11/2025 4:02 AM [facility] Monocyte % 9.3 5.0 - 12.0 % 04/11/2025 4:02 AM [facility] Eosinophil % 4.1 0.3 - 6.2 % 04/11/2025 4:02 AM [facility] Basophil % 0.4 0.0 - 1.5 % 04/11/2025 4:02 AM [facility] Immature Grans % 0.4 0.0 - 0.5 % 04/11/2025 4:02 AM [facility] Neutrophils, Absolute 4.69 1.70 - 7.00 10*3/mm3 04/11/2025 4:02 AM EDT [facility] Lymphocytes, Absolute 2.07 0.70 - 3.10 10*3/mm3 04/11/2025 4:02 AM EDT [facility] Monocytes, Absolute 0.73 0.10 - 0.90 10*3/mm3 04/11/2025 4:02 AM EDT [facility] Eosinophils, Absolute 0.32 0.00 - 0.40 10*3/mm3 04/11/2025 4:02 AM EDT [facility] LABORATORY Basophils, Absolute 0.03 0.00 - 0.20 10*3/mm3 04/11/2025 4:02 AM EDT [facility] Immature Grans, Absolute 0.03 0.00 - 0.05 10*3/mm3 04/11/2025 4:02 AM EDT [facility] nRBC 0.0 0.0 - 0.2 /100 WBC 04/11/2025 4:02 AM EDT [facility] Blood Venipuncture / Unknown 04/11/2025 3:40 AM EDT 04/11/2025 3:59 AM EDT us Sushil Dean Jr., MD LAB BLOOD ORDERABLES Fi nal Result [facility]
[address] [place] [address], * (ABNORMAL) Comprehensive Metabolic Panel (04/11/2025 3:40 AM EDT) Glucose 108(H) 65 - 99 mg/dL 04/11/2025 4:19 AM EDT [facility] BUN 12.5 6.0 - 20.0 mg/dL 04/11/2025 4:19 AM EDT [facility] Creatinine 0.68(L) 0.76 - 1.27 mg/dL 04/11/2025 4:19 AM [facility] Sodium 140 136 - 145 mmol/L 04/11/2025 4:19 AM [facility] Potassium 3.8 3.5 - 5.2 mmol/L 04/11/2025 4:19 AM [facility] Chloride 105 98 - 107 mmol/L 04/11/2025 4:19 AM [facility] CO2 28.2 22.0 - 29.0 mmol/L 04/11/2025 4:19 AM [facility] Calcium 8.2(L) 8.6 - 10.5 mg/dL 04/11/2025 4:19 AM [facility] Total Protein 6.1 6.0 - 8.5 g/dL 04/11/2025 4:19 AM [facility] Albumin 3.1(L) 3.5 - 5.2 g/dL 04/11/2025 4:19 AM [facility] ALT (SGPT) 52(H) 1 - 41 U/L 04/11/2025 4:19 AM [facility] AST (SGOT) 40 1 - 40 U/L 04/11/2025 4:19 AM [facility] Alkaline Phosphatase 99 39 - 117 U/L 04/11/2025 4:19 AM [facility] Total Bilirubin 0.2 0.0 - 1.2 mg/dL 04/11/2025 4:19 AM [facility] Globulin 3.0 gm/dL 04/11/2025 4:19 AM [facility] Comment:Calculated Result A/G Ratio 1.0 g/dL 04/11/2025 4:19 AM [facility] BUN/Creatinine Ratio 18.4 7.0 - 25.0 04/11/2025 4:19 AM [facility] Anion Gap 6.8 5.0 - 15.0 mmol/L 04/11/2025 4:19 AM [facility] eGFR 117.5 >60.0 mL/min/1.7 3 04/11/2025 4:19 AM EDT [facility] Blood Venipuncture / Unknown 04/11/2025 3:40 AM EDT 04/11/2025 3:56 AM EDT [facility] - 04/11/2025 4:19 AM EDT GFR [...] include race as a factor Rosario Hill [employer] LAB BLOOD ORDERABLES Final Result [facility]
[address] [place] [address], * (ABNORMAL) CBC Auto Differential (04/10/2025 3:46 AM EDT) WBC 9.60 3.40 - 10.80 10*3/mm3 04/10/2025 3:56 AM EDT [facility] RBC 4.67 4.14 - 5.80 10*6/mm3 04/10/2025 3:56 AM EDT [facility] Hemoglobin 12.9(L) 13.0 - 17.7 g/dL 04/10/2025 3:56 AM EDT [facility] Hematocrit 40.1 37.5 - 51.0 % 04/10/2025 3:56 AM EDT [facility] MCV 85.9 79.0 - 97.0 fL 04/10/2025 3:56 AM EDT [facility] MCH 27.6 26.6 - 33.0 pg 04/10/2025 3:56 AM EDT [facility] MCHC 32.2 31.5 - 35.7 g/dL 04/10/2025 3:[facility] RDW 12.9 12.3 - 15.4 % 04/10/2025 3:56 AM [facility] RDW-SD 40.5 37.0 - 54.0 fl 04/10/2025 3:56 AM [facility] MPV 9.5 6.0 - 12.0 fL 04/10/2025 3:56 AM EDT [facility] Platelets 227 140 - 450 10*3/mm3 04/10/2025 3:56 AM [facility] Neutrophil % 59.1 42.7 - 76.0 % 04/10/2025 3:56 AM [facility] Lymphocyte % 29.0 19.6 - 45.3 % 04/10/2025 3:56 AM [facility] Monocyte % 8.1 5.0 - 12.0 % 04/10/2025 3:56 AM [facility] Eosinophil % 3.2 0.3 - 6.2 % 04/10/2025 3:56 AM [facility] Basophil % 0.4 0.0 - 1.5 % 04/10/2025 3:56 AM [facility] Immature Grans % 0.2 0.0 - 0.5 % 04/10/2025 3:56 AM [facility] Neutrophils, Absolute 5.67 1.70 - 7.00 10*3/mm3 04/10/2025 3:56 AM [facility] Lymphocytes, Absolute 2.78 0.70 - 3.10 10*3/mm3 04/10/2025 3:56 AM [facility] Monocytes, Absolute 0.78 0.10 - 0.90 10*3/mm3 04/10/2025 3:56 AM [facility] Eosinophils, Absolute 0.31 0.00 - 0.40 10*3/mm3 04/10/2025 3:56 AM [facility] Basophils, Absolute 0.04 0.00 - 0.20 10*3/mm3 04/10/2025 3:56 AM EDT [facility] Immature Grans, Absolute 0.02 0.00 - 0.05 10*3/mm3 04/10/2025 3:56 AM EDT [facility] nRBC 0.0 0.0 - 0.2 /100 WBC 04/10/2025 3:56 AM EDT [facility] Blood Venipuncture / Unknown 04/10/2025 3:46 AM EDT 04/10/2025 3:53 AM EDT us Jason Álvarez DO LAB BLOOD ORDERABLES Final Resul t [facility]
[address] [place] [address], * (ABNORMAL) Basic Metabolic Panel (04/10/2025 3:46 AM EDT) Glucose 125(H) 65 - 99 mg/dL 04/10/2025 4:20 AM EDT [facility] BUN 15.9 6.0 - 20.0 mg/dL 04/10/2025 4:20 AM EDT [facility] Creatinine 0.77 0.76 - 1.27 mg/dL 04/10/2025 4:20 AM EDT [facility] Sodium 137 136 - 145 mmol/L 04/10/2025 4:20 AM EDT [facility] Potassium 3.9 3.5 - 5.2 mmol/L 04/10/2025 4:20 AM EDT [facility] Chloride 102 98 - 107 mmol/L 04/10/2025 4:20 AM EDT [facility] CO2 26.9 22.0 - 29.0 mmol/L 04/10/2025 4:20 AM EDT [facility] Calcium 7.9(L) 8.6 - 10.5 mg/dL 04/10/2025 4:20 AM [facility] BUN/Creatinine Ratio 20.6 7.0 - 25.0 04/10/2025 4:20 AM EDT [facility] Anion Gap 8.1 5.0 - 15.0 mmol/L 04/10/2025 4:20 AM EDT [facility] eGFR 113.2 >60.0 mL/min/1.7 3 04/10/2025 4:20 AM EDT [facility] Blood Venipuncture / Unknown 04/10/2025 3:46 AM EDT 04/10/2025 3:52 AM EDT Narrative [facility] - 04/10/2025 4:20 AM [...] DO LAB BLOOD ORDERABLES Final Resul t [facility]
[address] [place] [address], * Heparin Anti-Xa (04/10/2025 3:46 AM EDT) Heparin Anti-Xa (UFH) 0.35 0.30 - 0.70 IU/ml 04/10/2025 4:23 AM EDT [facility] Blood Venipuncture / Unknown 04/10/2025 3:46 AM EDT 04/10/2025 3:53 AM EDT Larisa Hamilton [facility] LAB BLOOD ORDERABLES Final R esult [facility]
[address] [place] [address], * Heparin Anti-Xa (04/09/2025 10:05 AM EDT) Heparin Anti-Xa (UFH) 0.36 0.30 - 0.70 IU/ml 04/09/2025 11:12 AM EDT [facility] Blood Venipuncture / Unknown 04/09/2025 10:05 AM EDT 04/09/2025 10:47 AM EDT Larisa Hamilton [facility] LAB BLOOD ORDERABLES Final R esult [facility]
[address] [place] [address], * (ABNORMAL) CBC Auto Differential (04/09/2025 4:18 AM EDT) WBC 11.00(H) 3.40 - 10.80 10*3/mm3 04/09/2025 4:50 AM EDT [facility] RBC 4.70 4.14 - 5.80 10*6/mm3 04/09/2025 4:50 AM EDT [facility] Hemoglobin 13.0 13.0 - 17.7 g/dL 04/09/2025 4:50 AM EDT [facility] Hematocrit 40.4 37.5 - 51.0 % 04/09/2025 4:50 AM EDT [facility] MCV 86.0 79.0 - 97.0 fL 04/09/2025 4:50 AM EDT [facility] MCH 27.7 26.6 - 33.0 pg 04/09/2025 4:50 AM EDT [facility] MCHC 32.2 31.5 - 35.7 g/dL 04/09/2025 4:50 AM EDT [facility] RDW 12.8 12.3 - 15.4 % 04/09/2025 4:50 AM [facility] RDW-SD 39.9 37.0 - 54.0 fl 04/09/2025 4:50 AM [facility] MPV 10.0 6.0 - 12.0 fL 04/09/2025 4:50 AM [facility] Platelets 211 140 - 450 10*3/mm3 04/09/2025 4:50 AM [facility] Neutrophil % 74.8 42.7 - 76.0 % 04/09/2025 4:50 AM [facility] Lymphocyte % 15.4(L) 19.6 - 45.3 % 04/09/2025 4:50 AM [facility] Monocyte % 8.5 5.0 - 12.0 % 04/09/2025 4:50 AM [facility] Eosinophil % 0.6 0.3 - 6.2 % 04/09/2025 4:50 AM [facility] Basophil % 0.4 0.0 - 1.5 % 04/09/2025 4:50 AM [facility] Immature Grans % 0.3 0.0 - 0.5 % 04/09/2025 4:50 AM [facility] Neutrophils, Absolute 8.23(H) 1.70 - 7.00 10*3/mm3 04/09/2025 4:50 AM [facility] Lymphocytes, Absolute 1.69 0.70 - 3.10 10*3/mm3 04/09/2025 4:50 AM [facility] Monocytes, Absolute 0.94(H) 0.10 - 0.90 10*3/mm3 04/09/2025 4:50 AM [facility] Eosinophils, Absolute 0.07 0.00 - 0.40 10*3/mm3 04/09/2025 4:50 AM [facility] Basophils, Absolute 0.04 0.00 - 0.20 10*3/mm3 04/09/2025 4:50 AM [facility] Immature Grans, Absolute 0.03 0.00 - 0.05 10*3/mm3 04/09/2025 4:50 AM EDT [facility] nRBC 0.0 0.0 - 0.2 /100 WBC 04/09/2025 4:50 AM EDT [facility] Blood Venipuncture / Unknown 04/09/2025 4:18 AM EDT 04/09/2025 4:31 AM EDT Sushil Dean Jr., MD LAB BLOOD ORDERABLES Fi nal Result [facility]
[address] [place] [address], * Heparin Anti-Xa (04/09/2025 4:18 AM EDT) Heparin Anti-Xa (UFH) 0.41 0.30 - 0.70 IU/ml 04/09/2025 4:53 AM EDT [facility] Blood Venipuncture / Unknown 04/09/2025 4:18 AM EDT 04/09/2025 4:31 AM EDT Una LundbergD LAB BLOOD ORDERABLES Final R esult [facility]
[address] [place] [address], * (ABNORMAL) Basic Metabolic Panel (04/09/2025 4:18 AM EDT) Glucose 147(H) 65 - 99 mg/dL 04/09/2025 5:33 AM EDT [facility] BUN 23.0(H) 6.0 - 20.0 mg/dL 04/09/2025 5:33 AM EDT [facility] Creatinine 1.15 0.76 - 1.27 mg/dL 04/09/2025 5:33 AM EDT [facility] Sodium 135(L) 136 - 145 mmol/L 04/09/2025 5:33 AM EDT [facility] Potassium 4.2 3.5 - 5.2 mmol/L 04/09/2025 5:33 AM EDT [facility] Chloride 100 98 - 107 mmol/L 04/09/2025 5:33 AM EDT [facility] CO2 26.0 22.0 - 29.0 mmol/L 04/09/2025 5:33 AM EDT [facility] Calcium 8.2(L) 8.6 - 10.5 mg/dL 04/09/2025 5:33 AM EDT [facility] BUN/Creatinine Ratio 20.0 7.0 - 25.0 04/09/2025 5:33 AM EDT [facility] Anion Gap 9.0 5.0 - 15.0 mmol/L 04/09/2025 5:33 AM EDT [facility] eGFR 80.5 >60.0 mL/min/1.7 3 04/09/2025 5:33 AM EDT [facility] Blood Venipuncture / Unknown 04/09/2025 4:18 AM EDT 04/09/2025 4:29 AM EDT [facility] - 04/09/2025 5:33 AM EDT GFR [...] Jr., MD LAB BLOOD ORDERABLES nal Result [facility]
[address] [place] [address], * Wound Culture - Swab, Leg, Right (04/08/2025 3:40 PM EDT) Wound Culture No growth at 3 days ALIZA 04/11/2025 10:40 AM EDT [facility] Gram Stain Few (2+) WBCs seen 04/11/2025 10:40 AM EDT [facility] Gram Stain No organisms seen 04/11/2025 10:40 AM EDT [facility] Swab Structure of right lower limb / Unknown 04/08/2025 3:40 PM EDT 04/08/2025 8:05 PM EDT Sushil Dean Jr., MD MICROBIOLOGY - GENERAL ORDERABLES Final Result Performing Organization Address City/[facility]/ZIP Co de Phone Number [facility]
[address] [place] [address], [facility]
[address] [place] [address], * Anaerobic Culture - Swab, Leg, Right [...] [facility]
[address] [place] [address], * Scan Slide (04/08/2025 8:41 AM EDT) RBC Morphology Normal Normal 04/08/2025 11:02 AM EDT [facility] WBC Morphology Normal Normal 04/08/2025 11:02 AM EDT [facility] Platelet Estimate Adequate Normal 04/08/2025 11:02 AM EDT [facility] Clumped Platelets Present None Seen 04/08/2025 11:02 AM EDT [facility] Blood Venipuncture / Unknown 04/08/2025 8:41 AM EDT 04/08/2025 9:10 AM EDT Una Perla PharmD LAB BLOOD ORDERABLES Final R esult [facility]
[address] [place] [address], * (ABNORMAL) CBC Auto Differential (04/08/2025 8:41 AM EDT) WBC 10.07 3.40 - 10.80 10*3/mm3 04/08/2025 11:02 AM EDT [facility] RBC 5.01 4.14 - 5.80 10*6/mm3 04/08/2025 11:02 AM EDT [facility] Hemoglobin 14.0 13.0 - 17.7 g/dL 04/08/2025 11:02 AM EDT [facility] Hematocrit 42.7 37.5 - 51.0 % 04/08/2025 11:02 AM EDT [facility] MCV 85.2 79.0 - 97.0 fL 04/08/2025 11:02 AM EDT [facility] MCH 27.9 26.6 - 33.0 pg 04/08/2025 11:02 AM EDT [facility] MCHC 32.8 31.5 - 35.7 g/dL 04/08/2025 11:02 AM EDT [facility] RDW 12.6 12.3 - 15.4 % 04/08/2025 11:02 AM EDT [facility] RDW-SD 38.9 37.0 - 54.0 fl 04/08/2025 11:02 AM [facility] MPV 11.0 6.0 - 12.0 fL 04/08/2025 11:02 AM [facility] Platelets 118(L) 140 - 450 10*3/mm3 04/08/2025 11:02 AM [facility] Neutrophil % 85.1(H) 42.7 - 76.0 % 04/08/2025 11:02 AM [facility] Lymphocyte % 9.3(L) 19.6 - 45.3 % 04/08/2025 11:02 AM [facility] Monocyte % 4.6(L) 5.0 - 12.0 % 04/08/2025 11:02 AM [facility] Eosinophil % 0.3 0.3 - 6.2 % 04/08/2025 11:02 AM [facility] Basophil % 0.2 0.0 - 1.5 % 04/08/2025 11:02 AM [facility] Immature Grans % 0.5 0.0 - 0.5 % 04/08/2025 11:02 AM [facility] Neutrophils, Absolute 8.57(H) 1.70 - 7.00 10*3/mm3 04/08/2025 11:02 AM [facility] Lymphocytes, Absolute 0.94 0.70 - 3.10 10*3/mm3 04/08/2025 11:02 AM [facility] Monocytes, Absolute 0.46 0.10 - 0.90 10*3/mm3 04/08/2025 11:02 AM [facility] Eosinophils, Absolute 0.03 0.00 - 0.40 10*3/mm3 04/08/2025 11:02 AM [facility] Basophils, Absolute 0.02 0.00 - 0.20 10*3/mm3 04/08/2025 11:02 AM [facility] Immature Grans, Absolute 0.05 0.00 - 0.05 10*3/mm3 04/08/2025 11:02 AM EDT [facility] nRBC 0.0 0.0 - 0.2 /100 WBC 04/08/2025 11:02 AM EDT [facility] Blood Venipuncture / Unknown 04/08/2025 8:41 AM EDT 04/08/2025 9:10 AM EDT Una Perla PharmD LAB BLOOD ORDERABLES Final R esult [facility]
[address] [place] [address], * (ABNORMAL) Basic Metabolic Panel (04/08/2025 8:41 AM EDT) Glucose 125(H) 65 - 99 mg/dL 04/08/2025 9:51 AM EDT [facility] BUN 13.2 6.0 - 20.0 mg/dL 04/08/2025 9:51 AM EDT [facility] Creatinine 0.69(L) 0.76 - 1.27 mg/dL 04/08/2025 9:51 AM EDT [facility] Sodium 136 136 - 145 mmol/L 04/08/2025 9:51 AM EDT [facility] Potassium 4.6 3.5 - 5.2 mmol/L 04/08/2025 9:51 AM EDT [facility] Chloride 102 98 - 107 mmol/L 04/08/2025 9:51 AM EDT [facility] CO2 23.5 22.0 - 29.0 mmol/L 04/08/2025 9:51 AM EDT [facility] Calcium 8.4(L) 8.6 - 10.5 mg/dL 04/08/2025 9:51 AM EDT [facility] BUN/Creatinine Ratio 19.1 7.0 - 25.0 04/08/2025 9:51 AM EDT [facility] Anion Gap 10.5 5.0 - 15.0 mmol/L 04/08/2025 9:51 AM EDT [facility] eGFR 117.0 >60.0 mL/min/1.7 3 04/08/2025 9:51 AM EDT [facility] Blood Venipuncture / Unknown 04/08/2025 8:41 AM EDT 04/08/2025 9:09 AM EDT Narrative [facility] - 04/08/2025 9:51 AM [...] ORDERABLES Fi nal Result Performing Organization Address City/[facility]/ZIP Co de Phone Number [facility]
[address] [place] [address], * Heparin Anti-Xa (04/08/2025 8:41 AM EDT) Heparin Anti-Xa (UFH) 0.33 0.30 - 0.70 IU/ml 04/08/2025 9:40 AM EDT [facility] Blood Venipuncture / Unknown 04/08/2025 8:41 AM EDT 04/08/2025 9:10 AM EDT us Sushil Dean Jr., MD LAB BLOOD ORDERABLES Fi nal Result Performing Organization Address City/[facility]/ZIP Co de Phone Number [facility]
[address] [place] [address], [place] [phone] * [place] C Arm During Surgery (04/07/2025 [...] Occasional WBCs seen 04/11/2025 10:40 AM EDT [facility] Gram Stain No organisms seen 04/11/2025 10:40 AM EDT [facility] Swab Structure of right lower limb / Unknown Collection / Unknown 04/07/2025 9:14 PM EDT 04/08/2025 4:36 AM EDT us Sushil Dean Jr., MD MICROBIOLOGY - GENERAL ORDERABLES Final Result Performing Organization Address City/[facility]/ZIP Co de Phone Number [facility]
[address] [place] [address], [facility]
[address] [place] [address], * Anaerobic Culture - Swab, Leg, Right [...] [facility]
[address] [place] [address], * Anaerobic Culture - Tissue, Leg (04/07/2025 9:13 PM EDT) Anaerobic Culture No anaerobes isolated at 5 days ALIZA 04/13/2025 7:21 AM EDT [facility] Tissue Lower limb structure / Unknown Collection / Unknown 04/07/2025 9:13 PM EDT 04/08/2025 4:54 AM EDT Jason Álvarez DO MICROBIOLOGY - GENERAL ORDERABLE S Final Result [facility]
[address] [place] [address], * Tissue / Bone Culture - Tissue, Leg, Right (04/07/2025 9:13 PM EDT) [facility] Tissue Culture No growth at 3 days ALIZA 04/11/2025 10:36 AM EDT [facility] Gram Stain Rare (1+) WBCs seen 04/11/2025 10:36 AM EDT [facility] Gram Stain No organisms seen 04/11/2025 10:36 AM EDT [facility] Tissue Structure of right lower limb / Unknown 04/07/2025 9:13 PM EDT 04/08/2025 4:54 AM EDT Sushil Dean Jr., MD MICROBIOLOGY - GENERAL ORDERABLES Final Result [facility]
[address] [place] [address], [facility]
[address] [place] [address], * (ABNORMAL) Wound Culture - Swab, Leg, Right (04/07/2025 9:07 PM EDT) Wound Culture Light growth (2+) Staphylococcus aureus, MRSA(A) ALIZA 04/10/2025 10:38 AM EDT [facility] Comment: Methicillin resistant Staphylococcus aureus, Patient may be an isolation risk. Gram Stain Few (2+) WBCs seen 04/10/2025 10:38 AM EDT [facility] Gram Stain No organisms seen 10:38 AM EDT [facility] Swab Structure of right [...] [facility]
[address] [place] [address], [place] [phone] [facility]
[address] [place] [address], [place] [phone] * Anaerobic Culture - Swab, Leg, Right [...] [facility]
[address] [place] [address], * Heparin Anti-Xa (04/07/2025 9:10 AM EDT) [facility] Heparin Anti-Xa ([facility]) 0.30 0.30 - 0.70 IU/ml 04/07/2025 10:12 AM EDT [facility] Blood Venipuncture / Unknown 04/07/2025 9:10 AM EDT 04/07/2025 9:38 AM EDT Una LundbergD LAB BLOOD ORDERABLES Final R esult [facility]
[address] [place] [address], [place] [phone] * (ABNORMAL) CBC Auto Differential (04/07/2025 9:10 AM EDT) [facility] WBC 8.63 3.40 - 10.80 10*3/mm3 04/07/2025 9:50 AM EDT [facility] RBC 5.23 4.14 - 5.80 10*6/mm3 04/07/2025 9:50 AM EDT [facility] Hemoglobin 14.7 13.0 - 17.7 g/dL 04/07/2025 9:50 AM EDT [facility] Hematocrit 44.8 37.5 - 51.0 % 04/07/2025 9:50 AM EDT [facility] MCV 85.7 79.0 - 97.0 fL 04/07/2025 9:50 AM EDT [facility] MCH 28.1 26.6 - 33.0 pg 04/07/2025 9:50 AM EDT [facility] MCHC 32.8 31.5 - 35.7 g/dL 04/07/2025 9:50 AM EDT [facility] RDW 12.8 12.3 - 15.4 % 04/07/2025 9:50 AM [facility] RDW-SD 39.9 37.0 - 54.0 fl 04/07/2025 9:50 AM [facility] MPV 10.8 6.0 - 12.0 fL 04/07/2025 9:50 AM [facility] Platelets 149 140 - 450 10*3/mm3 04/07/2025 9:50 AM [facility] Neutrophil % 66.7 42.7 - 76.0 % 04/07/2025 9:50 AM [facility] Lymphocyte % 20.5 19.6 - 45.3 % 04/07/2025 9:50 AM [facility] Monocyte % 9.8 5.0 - 12.0 % 04/07/2025 9:50 AM [facility] Eosinophil % 2.1 0.3 - 6.2 % 04/07/2025 9:50 AM [facility] Basophil % 0.3 0.0 - 1.5 % 04/07/2025 9:50 AM [facility] Immature Grans % 0.6(H) 0.0 - 0.5 % 04/07/2025 9:50 AM [facility] Neutrophils, Absolute 5.75 1.70 - 7.00 10*3/mm3 04/07/2025 9:50 AM [facility] Lymphocytes, Absolute 1.77 0.70 - 3.10 10*3/mm3 04/07/2025 9:50 AM [facility] Monocytes, Absolute 0.85 0.10 - 0.90 10*3/mm3 04/07/2025 9:50 AM [facility] Eosinophils, Absolute 0.18 0.00 - 0.40 10*3/mm3 04/07/2025 9:50 AM [facility] Basophils, Absolute 0.03 0.00 - 0.20 10*3/mm3 04/07/2025 9:50 AM [facility] Immature Grans, Absolute 0.05 0.00 - 0.05 10*3/mm3 04/07/2025 9:50 AM EDT [facility] nRBC 0.0 0.0 - 0.2 /100 WBC 04/07/2025 9:50 AM EDT [facility] Blood Venipuncture / Unknown 04/07/2025 9:10 AM EDT 04/07/2025 9:38 AM EDT Jasonalfonso Álvarez DO LAB BLOOD ORDERABLES Final Resul t [facility]
[address] [place] [address], * (ABNORMAL) Basic Metabolic Panel (04/07/2025 9:10 AM EDT) Glucose 112(H) 65 - 99 mg/dL 04/07/2025 10:19 AM EDT [facility] BUN 13.1 6.0 - 20.0 mg/dL 04/07/2025 10:19 AM EDT [facility] Creatinine 0.77 0.76 - 1.27 mg/dL 04/07/2025 10:19 AM EDT [facility] Sodium 139 136 - 145 mmol/L 04/07/2025 10:19 AM EDT [facility] Potassium 4.2 3.5 - 5.2 mmol/L 04/07/2025 10:19 AM EDT [facility] Comment:Specimen hemolyzed. Result may be falsely elevated. Chloride 105 98 - 107 mmol/L 04/07/2025 10:19 AM EDT [facility] CO2 24.8 22.0 - 29.0 mmol/L 04/07/2025 10:19 AM EDT [facility] Calcium 8.6 8.6 - 10.5 mg/dL 04/07/2025 10:19 AM EDT [facility] BUN/Creatinine Ratio 17.0 7.0 - 25.0 04/07/2025 10:19 AM EDT [facility] Anion Gap 9.2 5.0 - 15.0 mmol/L 04/07/2025 10:19 AM EDT [facility] eGFR 113.2 >60.0 mL/min/1.7 3 04/07/2025 10:19 AM EDT [facility] Blood Venipuncture / Unknown 04/07/2025 9:10 AM EDT 04/07/2025 9:38 AM EDT Narrative [facility] - 04/07/2025 10:19 AM [...] POWELL LAB BLOOD ORDERABLES Final Resul t [facility]
[address] [place] [address], * MRI Tibia Fibula Right With & [...] [place] 04/07/2025 9:58 AM EDT Workstation ID: [id number] Narrative 04/07/2025 9:58 AM EDT MRI TIBIA [...] [place] 04/07/2025 9:58 AM EDT Workstation ID: [id number] us Sushil Dean Jr., MD IM MRI ORDERABLES Mary Beth l Result * Heparin Anti-Xa (04/07/2025 1:42 AM EDT) [facility] Heparin Anti-Xa (UFH) 0.38 0.30 - 0.70 IU/ml 04/07/2025 2:14 AM EDT [facility] Blood Venipuncture / Unknown 04/07/2025 1:42 AM EDT 04/07/2025 1:54 AM EDT Chelsie Turpin [facility] LAB BLOOD ORDERABLES Final R esult [facility]
[address] [place] [address], * Heparin Anti-Xa (04/06/2025 7:16 PM EDT) [facility] Heparin Anti-Xa (UFH) 0.33 0.30 - 0.70 IU/ml 04/06/2025 7:50 PM EDT [facility] Blood Venipuncture / Unknown 04/06/2025 7:16 PM EDT 04/06/2025 7:35 PM EDT Cherri Rogerio RPH LAB BLOOD ORDERABLES Final Res ult Performing Organization Address City/[facility]/ZIP Co de Phone Number [facility]
[address] [place] [address], * Potassium (04/06/2025 7:16 PM EDT) Potassium 4.0 3.5 - 5.2 mmol/L 04/06/2025 7:53 PM EDT [facility] Blood Venipuncture / Unknown 04/06/2025 7:16 PM EDT 04/06/2025 7:35 PM EDT Jason Álvarez DO LAB BLOOD ORDERABLES Final Resul t Performing Organization Address [facility] de Phone Number [facility]
[address] [place] [address], * (ABNORMAL) Heparin Anti-Xa (04/06/2025 12:36 PM EDT) Heparin Anti-Xa (UFH) 0.24(L) 0.30 - 0.70 IU/ml 04/06/2025 1:23 PM EDT [facility] Blood Venipuncture / Unknown 04/06/2025 12:36 PM EDT 04/06/2025 1:07 PM EDT Una LundbergD LAB BLOOD ORDERABLES Final R esult Performing Organization Address City/[facility] Co de Phone Number [facility]
[address] [place] [address], * (ABNORMAL) Heparin Anti-Xa (04/06/2025 3:42 AM EDT) [facility]ologist [facility] Heparin Anti-Xa (UFH) 0.25(L) 0.30 - 0.70 IU/ml 04/06/2025 5:30 AM EDT [facility] Blood Venipuncture / Unknown 04/06/2025 3:42 AM EDT 04/06/2025 4:59 AM EDT Chelsie Turpin [facility] LAB BLOOD ORDERABLES Final R esult [facility]
[address] [place] [address], * (ABNORMAL) Basic Metabolic Panel (04/06/2025 3:42 AM EDT) Pathologist [facility] Glucose 94 65 - 99 mg/dL 04/06/2025 5:59 AM EDT [facility] BUN 12.8 6.0 - 20.0 mg/dL 04/06/2025 5:59 AM EDT [facility] Creatinine 0.80 0.76 - 1.27 mg/dL 04/06/2025 5:59 AM EDT [facility] Sodium 138 136 - 145 mmol/L 04/06/2025 5:59 AM EDT [facility] Potassium 3.6 3.5 - 5.2 mmol/L 04/06/2025 5:59 AM EDT [facility] Chloride 103 98 - 107 mmol/L 04/06/2025 5:59 AM EDT [facility] CO2 24.2 22.0 - 29.0 mmol/L 04/06/2025 5:59 AM EDT [facility] Calcium 8.0(L) 8.6 - 10.5 mg/dL 04/06/2025 5:59 AM EDT [facility] BUN/Creatinine Ratio 16.0 7.0 - 25.0 04/06/2025 5:59 AM EDT [facility] Anion Gap 10.8 5.0 - 15.0 mmol/L 04/06/2025 5:59 AM EDT [facility] eGFR 111.9 >60.0 mL/min/1.7 3 04/06/2025 5:59 AM EDT [facility] Blood Venipuncture / Unknown 04/06/2025 3:42 AM EDT 04/06/2025 5:20 AM EDT [facility] - 04/06/2025 5:59 AM EDT GFR [...] DO LAB BLOOD ORDERABLES Final Resul t [facility]
[address] [place] [address], * (ABNORMAL) CBC Auto Differential (04/06/2025 3:41 AM EDT) WBC 10.86(H) 3.40 - 10.80 10*3/mm3 04/06/2025 5:04 AM EDT [facility] RBC 5.08 4.14 - 5.80 10*6/mm3 04/06/2025 5:04 AM EDT [facility] Hemoglobin 13.9 13.0 - 17.7 g/dL 04/06/2025 5:04 AM EDT [facility] Hematocrit 43.7 37.5 - 51.0 % 04/06/2025 5:04 AM EDT [facility] MCV 86.0 79.0 - 97.0 fL 04/06/2025 5:04 AM [facility] MCH 27.4 26.6 - 33.0 pg 04/06/2025 5:04 AM [facility] MCHC 31.8 31.5 - 35.7 g/dL 04/06/2025 5:04 AM [facility] RDW 12.8 12.3 - 15.4 % 04/06/2025 5:04 AM [facility] RDW-SD 40.0 37.0 - 54.0 fl 04/06/2025 5:04 AM [facility] MPV 11.7 6.0 - 12.0 fL 04/06/2025 5:04 AM [facility] Platelets 115(L) 140 - 450 10*3/mm3 04/06/2025 5:04 AM [facility] Neutrophil % 65.3 42.7 - 76.0 % 04/06/2025 5:04 AM [facility] Lymphocyte % 20.5 19.6 - 45.3 % 04/06/2025 5:04 AM [facility] Monocyte % 11.8 5.0 - 12.0 % 04/06/2025 5:04 AM [facility] Eosinophil % 1.8 0.3 - 6.2 % 04/06/2025 5:04 AM [facility] Basophil % 0.3 0.0 - 1.5 % 04/06/2025 5:04 AM [facility] Immature Grans % 0.3 0.0 - 0.5 % 04/06/2025 5:04 AM [facility] Neutrophils, Absolute 7.09(H) 1.70 - 7.00 10*3/mm3 04/06/2025 5:04 AM [facility] Lymphocytes, Absolute 2.23 0.70 - 3.10 10*3/mm3 04/06/2025 5:04 AM [facility] Monocytes, Absolute 1.28(H) 0.10 - 0.90 10*3/mm3 04/06/2025 5:04 AM EDT [facility] Eosinophils, Absolute 0.20 0.00 - 0.40 10*3/mm3 04/06/2025 5:04 AM EDT [facility] Basophils, Absolute 0.03 0.00 - 0.20 10*3/mm3 04/06/2025 5:04 AM EDT [facility] Immature Grans, Absolute 0.03 0.00 - 0.05 10*3/mm3 04/06/2025 5:04 AM EDT [facility] nRBC 0.0 0.0 - 0.2 /100 WBC 04/06/2025 5:04 AM EDT [facility] Blood Venipuncture / Unknown 04/06/2025 3:41 AM EDT 04/06/2025 4:58 AM EDT Jason Álvarez DO LAB BLOOD ORDERABLES Final Resul t Performing Organization Address City/[facility] Co de Phone Number [facility]
[address] [place] [address], [place] [phone] * Heparin Anti-Xa (04/05/2025 8:43 PM EDT) Pathologist [facility] Heparin Anti-Xa (UFH) 0.38 0.30 - 0.70 IU/ml 04/05/2025 9:09 PM EDT [facility] Blood Venipuncture / Unknown 04/05/2025 8:43 PM EDT 04/05/2025 8:55 PM EDT us Cherri Beatty [facility] LAB BLOOD ORDERABLES Final Res ult Performing Organization Address City/[facility]/ZIP Co de Phone Number [facility]
[address] [place] [address], [place] [phone] * CK (04/05/2025 12:15 PM EDT) Creatine Kinase 140 20 - 200 U/L 04/05/2025 1:31 PM EDT [facility] Blood Venipuncture / Unknown 04/05/2025 12:15 PM EDT 04/05/2025 1:03 PM EDT Carlton Mead MD LAB BLOOD ORDERABLES Final R esult Performing Organization Address City/[facility]/ZIP Co de Phone Number [facility]
[address] [place] [address], * (ABNORMAL) Heparin Anti-Xa (04/05/2025 12:15 PM EDT) Heparin Anti-Xa (UFH) 0.17(L) 0.30 - 0.70 IU/ml 04/05/2025 1:21 PM EDT [facility] Blood Venipuncture / Unknown 04/05/2025 12:15 PM EDT 04/05/2025 1:04 PM EDT nUa Perla PharmD LAB BLOOD ORDERABLES Final R esult Performing Organization Address City/[facility] Co de Phone Number [facility]
[address] [place] [address], * (ABNORMAL) aPTT (04/05/2025 3:54 AM EDT) PTT 35.3(L) 60.0 - 90.0 seconds 04/05/2025 4:31 AM EDT [facility] Blood Venipuncture / Unknown 04/05/2025 3:54 AM EDT 04/05/2025 4:15 AM EDT Narrative [facility] - 04/05/2025 4:31 AM EDT PTT = The equivalent PTT values for the therapeutic range of heparin levels at 0.3 to 0.5 U/ml are 60 to 70 seconds. [employer] LAB BLOOD ORDERABLES Final R esult [facility]
[address] [place] [address], * Heparin Anti-Xa (04/05/2025 3:54 AM EDT) Pathologist [facility] Heparin Anti-Xa (UFH) 0.30 0.30 - 0.70 IU/ml 04/05/2025 4:32 AM EDT [facility] Blood Venipuncture / Unknown 04/05/2025 3:54 AM EDT 04/05/2025 4:15 AM EDT [employer] LAB BLOOD ORDERABLES Final R esult Performing Organization Address City/[facility]/ZIP Co de Phone Number [facility]
[address] [place] [address], * (ABNORMAL) CBC Auto Differential (04/05/2025 3:54 AM EDT) [facility] WBC 11.18(H) 3.40 - 10.80 10*3/mm3 04/05/2025 4:20 AM EDT [facility] RBC 5.00 4.14 - 5.80 10*6/mm3 04/05/2025 4:20 AM EDT [facility] Hemoglobin 13.9 13.0 - 17.7 g/dL 04/05/2025 4:20 AM EDT [facility] Hematocrit 42.4 37.5 - 51.0 % 04/05/2025 4:20 AM EDT [facility] MCV 84.8 79.0 - 97.0 fL 04/05/2025 4:20 AM EDT [facility] MCH 27.8 26.6 - 33.0 pg 04/05/2025 4:20 AM EDT [facility] MCHC 32.8 31.5 - 35.7 g/dL 04/05/2025 4:20 AM [facility] RDW 12.9 12.3 - 15.4 % 04/05/2025 4:20 AM [facility] RDW-SD 39.7 37.0 - 54.0 fl 04/05/2025 4:20 AM [facility] MPV 10.2 6.0 - 12.0 fL 04/05/2025 4:20 AM [facility] Platelets 160 140 - 450 10*3/mm3 04/05/2025 4:20 AM [facility] Neutrophil % 73.5 42.7 - 76.0 % 04/05/2025 4:20 AM [facility] Lymphocyte % 14.0(L) 19.6 - 45.3 % 04/05/2025 4:20 AM [facility] Monocyte % 11.0 5.0 - 12.0 % 04/05/2025 4:20 AM [facility] Eosinophil % 0.8 0.3 - 6.2 % 04/05/2025 4:20 AM [facility] Basophil % 0.3 0.0 - 1.5 % 04/05/2025 4:20 AM [facility] Immature Grans % 0.4 0.0 - 0.5 % 04/05/2025 4:20 AM [facility] Neutrophils, Absolute 8.23(H) 1.70 - 7.00 10*3/mm3 04/05/2025 4:20 AM [facility] Lymphocytes, Absolute 1.56 0.70 - 3.10 10*3/mm3 04/05/2025 4:20 AM [facility] Monocytes, Absolute 1.23(H) 0.10 - 0.90 10*3/mm3 04/05/2025 4:20 AM [facility] Eosinophils, Absolute 0.09 0.00 - 0.40 10*3/mm3 04/05/2025 4:20 AM [facility] Basophils, Absolute 0.03 0.00 - 0.20 10*3/mm3 04/05/2025 4:20 AM EDT [facility] Immature Grans, Absolute 0.04 0.00 - 0.05 10*3/mm3 04/05/2025 4:20 AM EDT [facility] nRBC 0.0 0.0 - 0.2 /100 WBC 04/05/2025 4:20 AM EDT [facility] Blood Venipuncture / Unknown 04/05/2025 3:54 AM EDT 04/05/2025 4:16 AM EDT Una Perla PharmD LAB BLOOD ORDERABLES Final R esult [facility]
[address] [place] [address], * (ABNORMAL) Basic Metabolic Panel (04/05/2025 3:54 AM EDT) Glucose 152(H) 65 - 99 mg/dL 04/05/2025 4:40 AM EDT [facility] BUN 17.3 6.0 - 20.0 mg/dL 04/05/2025 4:40 AM EDT [facility] Creatinine 0.92 0.76 - 1.27 mg/dL 04/05/2025 4:40 AM EDT [facility] Sodium 136 136 - 145 mmol/L 04/05/2025 4:40 AM EDT [facility] Potassium 3.9 3.5 - 5.2 mmol/L 04/05/2025 4:40 AM EDT [facility] Chloride 103 98 - 107 mmol/L 04/05/2025 4:40 AM EDT [facility] CO2 24.0 22.0 - 29.0 mmol/L 04/05/2025 4:40 AM EDT [facility] Calcium 7.8(L) 8.6 - 10.5 mg/dL 04/05/2025 4:40 AM EDT [facility] BUN/Creatinine Ratio 18.8 7.0 - 25.0 04/05/2025 4:40 AM EDT [facility] Anion Gap 9.0 5.0 - 15.0 mmol/L 04/05/2025 4:40 AM EDT [facility] eGFR 105.2 >60.0 mL/min/1.7 3 04/05/2025 4:40 AM EDT [facility] Blood Venipuncture / Unknown 04/05/2025 3:54 AM EDT 04/05/2025 4:15 AM EDT [facility] - 04/05/2025 4:40 AM EDT GFR [...] MD LAB BLOOD ORDERABLES Final Re sult [facility]
[address] [place] [address], * (ABNORMAL) aPTT (04/05/2025 12:18 AM EDT) PTT 33.6(L) 60.0 - 90.0 seconds 04/05/2025 12:53 AM EDT [facility] Blood Venipuncture / Unknown 04/05/2025 12:18 AM EDT 04/05/2025 12:37 AM EDT [facility] - 04/05/2025 12:53 AM EDT PTT = The equivalent PTT values for the therapeutic range of heparin levels at 0.3 to 0.5 U/ml are 60 to 70 seconds. [employer] PharmD LAB BLOOD ORDERABLES Final R esult Performing Organization Address City/[facility]/ZIP Co de Phone Number [facility]
[address] [place] [address], * (ABNORMAL) Protime-INR (04/05/2025 12:18 AM EDT) Protime 15.9(H) 12.2 - 15.3 Seconds 04/05/2025 12:53 AM EDT [facility] INR 1.19(H) 0.89 - 1.12 04/05/2025 12:53 AM EDT [facility] Blood Venipuncture / Unknown 04/05/2025 12:18 AM EDT 04/05/2025 12:37 AM EDT Tagstr PharmD LAB BLOOD ORDERABLES Final R esult Performing Organization Address [facility] Co de Phone Number [facility]
[address] [place] [address], * Heparin Anti-Xa (04/05/2025 12:18 AM EDT) Heparin Anti-Xa (UFH) 0.39 0.30 - 0.70 IU/ml 04/05/2025 12:54 AM EDT [facility] Blood Venipuncture / Unknown 04/05/2025 12:18 AM EDT 04/05/2025 12:37 AM EDT Tagstr PharmD LAB BLOOD ORDERABLES Final R esult Performing Organization Address City/[facility] Co de Phone Number [facility]
[address] [place] [address], * MRI Tibia Fibula Right With & Without Contrast (04/04/2025 5:54 PM EDT) Anatomical Region Laterality Modality Lower Extremities, Lower Leg [facility] 04/04/2025 10:5 7 PM EDT [...] MD 04/04/2025 11:00 PM EDT Workstation ID: [id number] Narrative 04/04/2025 11:00 PM EDT MRI TIBIA [...] MD 04/04/2025 11:00 PM EDT Workstation ID: [id number] Leonora Shepherd MD IMG MRI ORDERABLES Final Resu lt * POC Creatinine (04/04/2025 2:49 PM EDT) Creatinine 1.10 0.60 - 1.30 mg/dL 04/07/2025 7:14 PM EDT [facility] Comment:Serial Number: [id number] Venous Blood 04/04/2025 2:49 PM EDT 04/07/2025 7:14 PM EDT Jason Álvarez DO POINT OF CARE TEST ORDERABLES Fi nal Result [facility]
[address] [place] [address], * (ABNORMAL) CBC Auto Differential (04/04/2025 2:47 PM EDT) [facility] WBC 12.72(H) 3.40 - 10.80 10*3/mm3 04/04/2025 2:56 PM EDT [facility] RBC 5.64 4.14 - 5.80 10*6/mm3 04/04/2025 2:56 PM EDT [facility] Hemoglobin 15.3 13.0 - 17.7 g/dL 04/04/2025 2:56 PM EDT [facility] Hematocrit 47.9 37.5 - 51.0 % 04/04/2025 2:56 PM EDT [facility] MCV 84.9 79.0 - 97.0 fL 04/04/2025 2:56 PM EDT [facility] MCH 27.1 26.6 - 33.0 pg 04/04/2025 2:56 PM EDT [facility] MCHC 31.9 31.5 - 35.7 g/dL 04/04/2025 2:56 PM EDT [facility] RDW 13.1 12.3 - 15.4 % 04/04/2025 2:56 PM EDT [facility] RDW-SD 40.3 37.0 - 54.0 fl 04/04/2025 2:56 PM EDT [facility] MPV 9.4 6.0 - 12.0 fL 04/04/2025 2:56 PM EDT [facility] Platelets 232 140 - 450 10*3/mm3 04/04/2025 2:56 PM EDT [facility] Neutrophil % 74.9 42.7 - 76.0 % 04/04/2025 2:56 PM EDT [facility] Lymphocyte % 13.1(L) 19.6 - 45.3 % 04/04/2025 2:56 PM EDT [facility] Monocyte % 11.2 5.0 - 12.0 % 04/04/2025 2:56 PM EDT [facility] Eosinophil % 0.4 0.3 - 6.2 % 04/04/2025 2:56 PM EDT [facility] Basophil % 0.2 0.0 - 1.5 % 04/04/2025 2:56 PM EDT [facility] Immature Grans % 0.2 0.0 - 0.5 % 04/04/2025 2:56 PM EDT [facility] Neutrophils, Absolute 9.52(H) 1.70 - 7.00 10*3/mm3 04/04/2025 2:56 PM EDT [facility] Lymphocytes, Absolute 1.66 0.70 - 3.10 10*3/mm3 04/04/2025 2:56 PM EDT [facility] Monocytes, Absolute 1.43(H) 0.10 - 0.90 10*3/mm3 04/04/2025 2:56 PM EDT [facility] Eosinophils, Absolute 0.05 0.00 - 0.40 10*3/mm3 04/04/2025 2:56 PM EDT [facility] Basophils, Absolute 0.03 0.00 - 0.20 10*3/mm3 04/04/2025 2:56 PM EDT [facility] Immature Grans, Absolute 0.03 0.00 - 0.05 10*3/mm3 04/04/2025 2:56 PM EDT [facility] nRBC 0.0 0.0 - 0.2 /100 WBC 04/04/2025 2:56 PM EDT [facility] Blood Venipuncture / Unknown 04/04/2025 2:47 PM EDT 04/04/2025 2:52 PM EDT us Mario Crowley DO LAB BLOOD ORDERABLES Fin al Result [facility]
[address] [place] [address], * (ABNORMAL) C-reactive Protein (04/04/2025 2:47 PM EDT) [facility] Signature C-Reactive Protein 8.57(H) 0.00 - 0.50 mg/dL 04/04/2025 3:26 PM EDT [facility] Blood Venipuncture / Unknown 04/04/2025 2:47 PM EDT 04/04/2025 2:52 PM EDT [facility] BLOOD ORDERABLES Fin al Result Performing Organization Address City/[facility]/ZIP Co de Phone Number [facility]
[address] [place] [address], * (ABNORMAL) Sedimentation Rate (04/04/2025 2:47 PM EDT) [facility] Sed Rate 51(H) 0 - 15 mm/hr 04/04/2025 3:06 PM EDT [facility] Blood Venipuncture / Unknown 04/04/2025 2:47 PM EDT 04/04/2025 2:52 PM EDT [facility] LAB BLOOD ORDERABLES Fin al Result Performing Organization Address City/[facility] Co de Phone Number [facility]
[address] [place] [address], * Comprehensive Metabolic Panel (04/04/2025 2:47 PM EDT) [facility] Glucose 90 65 - 99 mg/dL 04/04/2025 3:26 PM EDT [facility] BUN 18.3 6.0 - 20.0 mg/dL 04/04/2025 3:26 PM EDT [facility] Creatinine 0.94 0.76 - 1.27 mg/dL 04/04/2025 3:26 PM EDT [facility] Sodium 136 136 - 145 mmol/L 04/04/2025 3:26 PM EDT [facility] Potassium 3.8 3.5 - 5.2 mmol/L 04/04/2025 3:26 PM EDT [facility] Chloride 100 98 - 107 mmol/L 04/04/2025 3:26 PM EDT [facility] CO2 25.3 22.0 - 29.0 mmol/L 04/04/2025 3:26 PM EDT [facility] Calcium 8.6 8.6 - 10.5 mg/dL 04/04/2025 3:26 PM T [facility] Total Protein 7.3 6.0 - 8.5 g/dL 04/04/2025 3:26 PM EDT [facility] Albumin 4.1 3.5 - 5.2 g/dL 04/04/2025 3:26 PM T [facility] ALT (SGPT) 26 1 - 41 U/L 04/04/2025 3:26 PM [facility] AST (SGOT) 25 1 - 40 U/L 04/04/2025 3:26 PM [facility] Alkaline Phosphatase 106 39 - 117 U/L 04/04/2025 3:26 PM T [facility] Total Bilirubin 1.0 0.0 - 1.2 mg/dL 04/04/2025 3:26 PM T [facility] Globulin 3.2 gm/dL 04/04/2025 3:26 PM [facility] Comment:Calculated Result A/G Ratio 1.3 g/dL 04/04/2025 3:26 PM [facility] BUN/Creatinine Ratio 19.5 7.0 - 25.0 04/04/2025 3:26 PM [facility] Anion Gap 10.7 5.0 - 15.0 mmol/L 04/04/2025 3:26 PM [facility] eGFR 102.5 >60.0 mL/min/1.7 3 04/04/2025 3:26 PM [facility] Blood Venipuncture / Unknown 04/04/2025 2:47 PM EDT 04/04/2025 2:52 PM EDT Narrative [facility] - 04/04/2025 3:26 PM [...] DO LAB BLOOD ORDERABLES Fin al Result [facility]
[address] [place] [address], documented in this encounter Visit Diagnoses Diagnosis [...] BPA Driven Protocol Open Order & [facility] Electrolyte Replacement Protocol Algorithm to [...] BPA Driven Protocol Open Order [facility] Electrolyte Replacement Protocol Algorithm to [...] Salazar, KELL)1943 (Given - Provider: Anahy Marcelino, PLAYER MANAGER)2129 (Canceled Entry - Provider: Anahy Marcelino PLAYER MANAGER - Comment: previously given) 0837 (Given - Provider: Amber Slaazar RRT)2006 (Given - Provider: Loree Reese RRT)2129 (Canceled Entry - Provider: Loree eRese RRT) 1037 (Given - Provider: Leonora Chen, [...] Continuous Medication Order 04/09/2025 04/10/2025 04/11/2025 heparin 36719 units/250 mL (100 units/mL) in 0.45 % [...] BPA Driven Protocol Open Order & [facility] Electrolyte Replacement Protocol Algorithm to [...] documented as of this encounter Care Teams Director Of Sustainability Programs Relationship Specialty Start Date End Date Provider, [place] [address] PCP - General 05/09/23 documented as of this encounter
--- OUTSIDE RECORDS SUMMARY | 2025-04-07 20:36 | XMS_ITS | Encounter Summary ---
Author Organization [facility] Address [address] [place] [address] Care Team Providers Care Automotive Painter Name Role Phone Provider, No Known Primary Care Provider Unavail able Reason for Visit * Auth/Cert Specialty Diagnoses / Procedures Referred By Bulmaro muniz Referred To Contact Diagnoses Right BKA infection Referral ID Status Reason Start Date Expiration Date Visits Re quested Visits Authorized [id number] 1 1 Encounter Details Date Type Department Care Team (Late st Contact Info) Description 04/07/2025 8:36 PM EDT Anesthesia Event [facility] OR [address] [place] [address] Luci Alonso DO [address] [place] [address] Anesthesia Record Procedure Summary Procedure Name Responsible [...] drink = 0.6 oz pur e alcohol) [facility] Utilities Answer Date Recorded In the past 12 months has [employer], gas, oil, or water [employer] threatened to shut off services in your [...] PACU on O2NC, breathing comfortably. Report to DAG SPRAYER at bedside. VSS. * Anesthesia Procedure Notes [...] Musculoskeletal Abdominal Substance History - negative use STAMP MAKER Other ROS/Med Hx Other: Eliquis 04/04/25 Hgb 14.7 k 43.2 Factor 2 on eliquis +gerd Anesthesia Plan ASA 3 - emergent general Rapid sequence (Risks and benefits of general anesthesia discussed with patient (including [place], CVA, , recall,aspiration, oropharyngeal/dental damage), questions answered, agreeable to proceed. ) intravenous induction Anesthetic plan, risks, benefits, and alternatives have been provided, discussed and informed consent has been obtained with: patient. Plan discussed with ARTIFICIAL INTELLIGENCE SPECIALIST. CODE STATUS: Code Status (Patient has no [...] documented as of this encounter Care Teams Automotive Painter Relationship Specialty Start Date End Date Provider, No Known [facility] [place] [address] PCP - General 05/09/23 documented as of this encounter
--- OUTSIDE RECORDS SUMMARY | 2025-04-08 14:45 | XMS_ITS | Encounter Summary ---
[facility] Address [address] [place] [address] Care Team Providers Care Historic Preservationist Name Role Phone Provider, No Known Primary Care Provider Unavail able Reason for Visit * Reason Comments Leg Swelling * Auth/Cert Specialty Diagnoses / Procedures Referred By Contac t Referred To Contact Diagnoses Right BKA infection Referral ID Status Reason Start Date Expiration Date Visits Re quested Visits Authorized [id number] 1 1 Encounter Details Date Type Department Care Team (Late st Contact Info) Description 04/08/2025 2:45 PM EDT - 04/08/2025 4:04 PM EDT Surgery [facility] OR [address] [place] [address] Sushil Dean Jr., MD [address] [place] [address] [address] [id number] LEG DEBRIDEMENT AND IRRIGATION Social History Tobacco Use Types Packs/Day Years Used Date Smoking Tobacco: Never Smokeless Tobacco: Never Tobacco Cessation:Counseling Given: Not Answered Alcohol Use Standard Drinks/Week Comments Not Currently 0 (1 standard drink = 0.6 oz pur e alcohol) [facility] Utilities Answer Date Recorded In the past 12 months has [employer] electric, gas, oil, or water company threatened [...] 2:25 PM EDT Cherri Grimm RN * [place] Suicide Severity Rating Scale (Screener/Recent Self-Report) Question [...] from the original note were not included. [facility] Medicine Services DISCHARGE SUMMARY Patient [...] Date/Time Wound Culture - Swab, Leg, Right [[id number]] (Abnormal) (Susceptibility) Collected: 04/07/252106 Lab Status: Final [...] Units Date/Time FL C Arm During Surgery [[id number]] Resulted: 04/07/252137 Updated: 04/07/252137 Narrative: This procedure was auto-finalized with no dictation required. MRI Tibia Fibula Right With & Without Contrast [[id number]] Collected: 04/07/25 0938 Updated: 04/07/25 1001 Narrative: [...] Buenrostro 04/07/2025 9:58 AM EDT Workstation ID: [id number] MRI Tibia Fibula Right With & Without Contrast [[id number]] Collected: 04/04/252256 Updated: 04/04/252302 Narrative: MRI TIBIA [...] represent a small area of phlegmonous change ([id number] image 10) measuring approximately 1.6 cm which [...] MD 04/04/2025 11:00 PM EDT Workstation ID: [id number] Pending Labs Order Current Status Fungus Culture [...] Male) Date of 1980 Social Security Number [id number] [place] [address] [place] [address] Mormon Unknown Marital Status Unknown Admission Date 04/04/2025 Admission Type Emergency Admitting Provider Jadyn Richardson DO Attending Provider Jadyn Richardson DO Department, Room/Bed [facility] 5G, S565/1 Discharge Date Discharge Disposition Discharge [...] Group [employer] [place] [id number] Payor Plan Address Payor Plan Phone Number Payor Plan Fax Number Effective Dates [employer] [address] [address] 08/10/2023 - None Entered [facility] [address] Subscriber Name Subscriber Date Member ID WON DENNIS 1980 [id number] Emergency Contacts Wool Hat 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 (Rel.) Home Phone Work Phone Mobile Phone Avril Dennis (Spouse) -- -- [phone] Robert Hackett (Relative) -- -- [phone] [facility] 5G [address] [facility] [address] Patient: ROOM: [facility] Won Dennis [address] [facility] [place] [address] : 1980 SSN: [id number] Sex: M PCP: Provider, No Known Emergency Contact Information Name Relation Home Work Mobile Avril Dennis Spouse [phone] Other Contacts Name Relation Home Work Mobile Robert Hackett Relative [phone] INSURANCE PAYOR [employer]AN [employer] # SUBSCRIBER ID Primary: Secondary: MEDICARE [employer] [id number] Admitting Diagnosis: Right BKA infection [T87.43] Order Date: Apr 09, 2025 Case Management Benzol Operator Consult (Order ID: [id number]) Diagnosis: Priority: Routine Expected Date: Expiration Date: [...] INFECTIOUS DISEASE Progress Note Won Dennis 1980 [id number] Date of Consult: 04/10/2025 Admission Date: 04/04/2025 Requesting Provider: Evaluating Physician: Dr. Mable Mead MD. 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 He c/o swelling with erythema for several days after a new prosthesis was fitted, which prompted him to seek treatment at [facility]. He is known to Dr. [...] Jr., MD, 20 mg at 04/09/25906 heparin 14247 units/250 mL (100 units/mL) in 0.45 % [...] vancomycin 2750 mg/500 mL 0.9% NS IVPB ([facility]) Ordering Provider: Mario Crowley, DO 20 [...] Units Date/Time FL C Arm During Surgery [[id number]] Resulted: 04/07/252137 Updated: 04/07/252137 Narrative: This procedure was auto-finalized with no dictation required. MRI Tibia Fibula Right With & Without Contrast [[id number]] Collected: 04/07/2538 Updated: 04/07/25 1001 Narrative: MRI [...] Buenrostro 04/07/2025 9:58 AM EDT Workstation ID: [id number] Impression: Recurrent Right BKA stump abscess/cellulitis- this [...] Date/Time Wound Culture - Swab, Leg, Right [[id number]] (Abnormal) (Susceptibility) Collected: 04/07/252106 Lab Status: Final [...] Row Name 04/06/25 1143 Sit-Stand Transfer Sit-Stand [place] (Transfers) modified independence - Comment, (Sit-Stand Transfer) Pt stood from recliner. Not holding onto walker, pt able to pull his pants up while balancing on his one leg. -LM Row Name 04/06/25 1143 Gait/Stairs (Locomotion) [place] Level (Gait) modified independence - Distance in [...] bilateral lower extremity ROM WFL -LM [facility] Name 04/06/25 1145 Strength Comprehensive (MMT) General Manual Muscle Testing (MMT) Assessment no strength deficits identified BLEs -LM [facility] Name 04/06/25 1145 Balance Balance [...] Physical Therapist Goals/Plan No documentation. Clinical Impression [facility] 04/06/25 1146 Pain Pretreatment Pain Rating 0/10 - no pain -LM Posttreatment Pain Rating 0/10 - no pain -LM [facility] 04/06/25 1146 Plan of Care Review Plan of Care Reviewed With patient -LM Outcome Evaluation PT evaluation completed. Pt demonstrated independence with all mobility including ambulating 100 feet using rw - no unsteadiness noted. Pt reports he feels at baseline and doesn't think he needs skilled PT while here. Recommend home at d/c. PT signing off. -LM [facility] Name 04/06/25 1146 Therapy Assessment/Plan (PT) Criteria for Skilled Interventions Met (PT) no;no problems identified which require skilled intervention -LM Therapy Frequency (PT) evaluation only -LM Predicted Duration of Therapy Intervention (PT) Eval Only -LM [facility] Name 04/06/25 1146 Vital Signs Pretreatment Heart Rate (beats/min) 86 -LM Posttreatment Heart Rate (beats/min) 96 -LM Pre SpO2 (%) 95 -LM O2 Delivery Pre Treatment room air -LM Post SpO2 (%) 96 -LM O2 Delivery Post Treatment room air -LM Pre Patient Position Sitting -LM Post Patient Position Sitting -LM [facility] Name 04/06/25 1146 Positioning and [...] Nurse Physical Therapy Education Title: PT OT PHOTOGRAPHER PORTRAIT Therapies (Done) Topic: Physical Therapy (Done) Point: [...] Description Service Date Service Provider Modifiers Qty [id number] PT EVAL LOW COMPLEXITY 3 04/06/2025 Susan [...] mg Daily 04/05/2025 -- Route: Oral heparin 64216 units/250 mL (100 units/mL) in 0.45 % [...] 22 [facility] [address], [address] [facility], [address] Please schedule at [phone] VONDA Garcia 04/11/25 08:32 EDT Cosigned by Sushil Dean Jr., MD at 04/19/2025 10:33 AM EDT Associated attestation - Sushil Dean Jr., MD - 04/19/2025 10:33 AM EDT I have reviewed this documentation and agree. * Rosario Hill APRN - 04/10/2025 1:24 PM EDT Images from the original note were not included. [facility] Medicine Services PROGRESS NOTE Patient Name: Wno [...] Date/Time Wound Culture - Swab, Leg, Right [[id number]] (Abnormal) (Susceptibility) Collected: 04/07/252106 Lab Status: Final [...] mg Daily 04/05/2025 -- Route: Oral heparin 45763 units/250 mL (100 units/mL) in 0.45 % [...] 22 [facility] [address] [facility], [address] [facility], [address] Please schedule at [phone] VONDA Garcia 04/10/25 09:01 EDT Cosigned by Sushil Dean Jr., MD at 04/19/2025 10:33 AM EDT Associated attestation - Sushil Dean Jr., MD - 04/19/2025 10:33 AM EDT I have reviewed this documentation and agree. * Carlton Mead MD - 04/10/2025 7:38 AM EDT Images from the original note were not included. INFECTIOUS DISEASE Progress Note Won Dennis 1980 [id number] Date of Consult: 04/10/2025 Admission Date: 04/04/2025 [...] which prompted him to seek treatment at [facility]. He is known to Dr. [...] IRRIGATION; Surgeon: Sushil Dean Jr., MD; Location: [facility] OR; Service: Orthopedics; Laterality: Right; PLACEMENT OF WOUND VAC Right 04/07/2025 Procedure: WOUND VACUUM ASSISTED CLOSURE; Surgeon: Sushil Dean Jr., MD; Location: [facility] OR; Service: Orthopedics; Laterality: Right; WOUND CLOSURE Right 04/08/2025 Procedure: WOUND CLOSURE DELAYED; Surgeon: Sushil Dean Jr., MD; Location: [facility]; Service:Orthopedics; Laterality: Right; WOUND DEBRIDEMENT Right 04/08/2025 Procedure: LEG DEBRIDEMENT AND IRRIGATION; Surgeon: Sushil Dean Jr., MD; Location: [facility];Service: Orthopedics; Laterality: Right; History reviewed. No [...] 10 mg, 10 mg, Rectal, Daily PRN, Susihl Dean Jr., MD budesonide-formoterol (SYMBICORT) 160-4.5 MCG/ACT [...] Jr., MD, 20 mg at 04/09/25906 heparin 62927 units/250 mL (100 units/mL) in 0.45 % [...] mL MBP Status: Discontinued Ordering Provider: Sushil Dena Jr., MD 2,000 mg 200 mL/hr over [...] Units Date/Time FL C Arm During Surgery [[id number]] Resulted: 04/07/252137 Updated: 04/07/252137 Narrative: This procedure was auto-finalized with no dictation required. MRI Tibia Fibula Right With & Without Contrast [[id number]] Collected: 04/07/25937 Updated: 04/07/25 100 Narrative: MRI [...] Buenrostro 04/07/2025 9:58 AM EDT Workstation ID: [id number] Impression: Recurrent Right BKA stump abscess/cellulitis- this [...] from the original note were not included. [facility] Medicine Services PROGRESS NOTE Patient [...] Date/Time Wound Culture - Swab, Leg, Right [[id number]] (Abnormal) Collected: 04/07/252106 Lab Status: Preliminary result [...] -- Admin Instructions: Open Order [facility] Electrolyte Replacement Protocol Algorithm to View [...] mg Daily 04/05/2025 -- Route: Oral heparin 39343 units/250 mL (100 units/mL) in 0.45 % [...] -- Admin Instructions: Open Order & [facility] Electrolyte Replacement Protocol Algorithm to View [...] radiographs [facility] [address] [facility] [address] [address], [address] [facility], [address] Please schedule at [phone] VONDA Garcia 04/09/25 09:18 EDT Cosigned by Sushil Dean Jr., MD at 04/19/2025 10:33 AM EDT Associated attestation - Sushil Dean Jr., MD - 04/19/2025 10:33 AM EDT I have reviewed this documentation and agree. * Carlton Mead MD - 04/09/2025 8:25 AM EDT Images from the original note were not included. INFECTIOUS DISEASE Progress Note Won Dennis 1980 [id number] Date of Consult: 04/09/2025 Admission Date: 04/04/2025 [...] which prompted him to seek treatment at [facility]. He is known to Dr. [...] Sushil Dean Jr., MD; Location: [facility]; Service: Orthopedics; Laterality: Right; PLACEMENT OF WOUND VAC Right 04/07/2025 Procedure: WOUND VACUUM ASSISTED CLOSURE; Surgeon: Sushil Dean Jr., MD; Location: [facility] OR; Service: Orthopedics; Laterality: Right; [...] MD, 20 mg at 04/08/25 0800 heparin 58780 units/250 mL (100 units/mL) in 0.45 % [...] Units Date/Time FL C Arm During Surgery [[id number]] Resulted: 04/07/252137 Updated: 04/07/252137 Narrative: This procedure was auto-finalized with no dictation required. MRI Tibia Fibula Right With & Without Contrast [[id number]] Collected: 04/07/25 0938 Updated: 04/07/25 1001 Narrative: [...] Chitra 04/07/2025 9:58 AM EDT Workstation ID: [id number] Impression: Recurrent Right BKA stump abscess/cellulitis- this [...] from the original note were not included. [facility] Medicine Services PROGRESS NOTE Patient [...] Buenrostro 04/07/2025 9:58 AM EDT Workstation ID: [id number] I have personally reviewed the therapy plans: [...] -- Admin Instructions: Open [facility] Electrolyte Replacement Protocol Algorithm to View [...] mg Daily 04/05/2025 -- Route: Oral heparin 05033 units/250 mL (100 units/mL) in 0.45 % [...] INFECTIOUS DISEASE Progress Note Won Dennis 1980 [id number] Date of Consult: 04/08/2025 Admission Date: 04/04/2025 [...] which prompted him to seek treatment at [facility]. He is known to Dr. [...] IRRIGATION; Surgeon: Sushil Dean Jr., MD; Location: [facility] OR; Service: Orthopedics; Laterality: Right; PLACEMENT OF WOUND VAC Right 04/07/2025 Procedure: WOUND VACUUM ASSISTED CLOSURE; Surgeon: Sushil Dean Jr., MD; Location: [facility] OR; Service: Orthopedics; Laterality: Right; [...] Oral, Q6H PRN, 500 mg at 04/06/25 8904 OR acetaminophen (TYLENOL) 160 MG/5ML oral solution [...] Jr., MD, 20 mg at 04/07/25950 heparin 30629 units/250 mL (100 units/mL) in 0.45 % [...] vancomycin 2750 mg/500 mL 0.9% NS IVPB ([facility]) Ordering Provider: Mario Crowley, DO 20 [...] Units Date/Time FL C Arm During Surgery [[id number]] Resulted: 04/07/252137 Updated: 04/07/252137 Narrative: This procedure was auto-finalized with no dictation required. MRI Tibia Fibula Right With & Without Contrast [[id number]] Collected: 04/07/25 0938 Updated: 04/07/25 1001 Narrative: [...] Buenrostro 04/07/2025 9:58 AM EDT Workstation ID: [id number] Impression: Right BKA stump cellulitis- s/p BKA with multiple surgical interventions with Known MRSA 05/09/2025. (Treated by ID in [place] Dr. Harris). Dr. Torres treated him with [...] from the original note were not included. [facility] Medicine Services PROGRESS NOTE Patient [...] Buenrostro 04/07/2025 9:58 AM EDT Workstation ID: [id number] I have personally reviewed the therapy plans: [...] INFECTIOUS DISEASE Progress Note Won Dennis 1980 [id number] Date of Consult: 04/07/2025 Admission Date: 04/04/2025 [...] which prompted him to seek treatment at [facility]. He is known to Dr. [...] MD, 20 mg at 04/06/25 0900 heparin 44527 units/250 mL (100 units/mL) in 0.45 % [...] infusion 40 mL, 40 mL, Intravenous, PRN, Leonroa Shepherd MD tamsulosin (FLOMAX) 24 hr capsule [...] With & Without Contrast - In process [[id number]] Resulted: 04/07/25828 Updated: 04/07/25828 This result has not been signed. Information might be incomplete. MRI Tibia Fibula Right With & Without Contrast [[id number]] Collected: 04/04/252256 Updated: 04/04/253 Narrative: MRI TIBIA [...] represent a small area of phlegmonous change ([id number] image 10) measuring approximately 1.6 cm which [...] MD 04/04/2025 11:00 PM EDT Workstation ID: [id number] Impression: Right BKA stump cellulitis- s/p BKA with multiple surgical interventions with Known MRSA 05/09/2025. (Treated by ID in [place] Dr. Harris). Dr. Torres treated him with [...] -- Admin Instructions: Open [facility] Electrolyte Replacement Protocol Algorithm to View [...] mg Daily 04/05/2025 -- Route: Oral heparin 31322 units/250 mL (100 units/mL) in 0.45 % [...] -- Admin Instructions: Open Order [facility] Electrolyte Replacement Protocol Algorithm to View [...] from the original note were not included. [facility] Medicine Services PROGRESS NOTE Patient [...] MD 04/04/2025 11:00 PM EDT Workstation ID: [id number] I have personally reviewed the therapy plans: [...] mg Daily 04/05/2025 -- Route: Oral heparin 13884 units/250 mL (100 units/mL) in 0.45 % [...] -- Admin Instructions: Open [facility] Electrolyte Replacement Protocol Algorithm to View [...] -- Admin Instructions: Open Order [facility] Electrolyte Replacement Protocol Algorithm to View [...] INFECTIOUS DISEASE follow up. Won Dennis 1980 [id number] Date of Consult: 04/06/2025 Admission Date: 04/04/2025 [...] which prompted him to seek treatment at [facility]. He is known to Dr. [...] MD, 20 mg at 04/06/25 0900 heparin 10755 units/250 mL (100 units/mL) in 0.45 % [...] Tibia Fibula Right With & Without Contrast [[id number]] Collected: 04/04/252256 Updated: 04/04/252302 Narrative: MRI TIBIA [...] represent a small area of phlegmonous change (bgeozi56 image 10) measuring approximately 1.6 cm which [...] MD 04/04/2025 11:00 PM EDT Workstation ID: [id number] Impression: Right BKA stump cellulitis- s/p BKA with multiple surgical interventions with Known MRSA 05/09/2025. (Treated by ID in [place] Dr. Harris). Dr. Torres treated him with [...] from the original note were not included. [facility] Medicine Services PROGRESS NOTE Patient [...] MD 04/04/2025 11:00 PM EDT Workstation ID: [id number] I have personally reviewed the therapy plans: [...] from the original note were not included. [facility] Medicine Services HISTORY AND PHYSICAL [...] MD 04/04/2025 11:00 PM EDT Workstation ID: [id number] Assessment & Plan Assessment & Plan Won [...] 4FR PICC placed by Rhoda Bonner RN [facility], tip verified by 3CG see LDA. * Sushil Dean Jr., MD - 04/05/2025 8:07 AM EDTAssociated Order(s): IP CONSULT TO ORTHOPEDIC SURGERY [facility] [address] [address] Orthopedic Consult Patient: Won Dennis Date of [...] was evaluated in the emergency department in [place], was discharged with instructions for follow-up. He [...] 04/03/2025 Morning Lactobacillus-Inulin ([facility]) capsule Take 200 mg by mouth Daily. [...] MD 04/04/2025 11:00 PM EDT Workstation ID: [id number] Assessment: Right BKA infection 44-year-old male with [...] DISEASE CONSULT/INITIAL HOSPITAL VISIT Won Dennis 1980 [id number] Date of Consult: 04/05/2025 Admission Date: 04/04/2025 [...] which prompted him to seek treatment at [facility]. He is known to Dr. [...] Leonora Shepherd MD, 40 mg at 04/04/25 8005 sennosides-docusate (PERICOLACE) 8.6-50 MG per tablet 2 [...] cream 1 Application, 1 Application, Topical, Q12H, Aayh Valentin APRN ferrous sulfate tablet 325 mg, 325 mg, Oral, BID, Leonora Shepherd MD, 325 mg at 04/05/25 0916 furosemide (LASIX) tablet 20 mg, 20 mg, Oral, Daily, Leonora Shepherd MD, 20 mg at 04/05/25 09 heparin 95833 units/250 mL (100 units/mL) in 0.45 % [...] Leonora Shepherd MD, 10 mg at 04/04/25 9927 Pharmacy to Dose Heparin, , Not Applicable, [...] Tibia Fibula Right With & Without Contrast [[id number]] Collected: 04/04/252256 Updated: 04/04/252302 Narrative: MRI TIBIA [...] represent a small area of phlegmonous change (cebikk33 image 10) measuring approximately 1.6 cm which [...] osteomyelitis. No knee joint effusion. Electronically Signed: Liegh Jones MD 04/04/2025 11:00 PM EDT Workstation ID: [id number] Impression: Right BKA stump cellulitis- s/p BKA with multiple surgical interventions with Known MRSA 05/09/2025. (Treated by ID in [place] Dr. Harris). Dr. Torres treated him with [...] infection POSTOP DIAGNOSIS: Same. PROCEDURE: Right Right 42732: Secondary closure below-knee amputation SURGEON: Sushil Dean MD OPERATIVE TEAM: Bobtail Driver: Susi Grullon RN Scrub Person: Mary Paredes Scrub Person Extra: Hortencia Toribio Other: Katt Gotti RN; Charis Neville RN ANESTHETIST: Anesthesiologist: Ulises Hoffman MD HEAD TELLER: Stan Casillas CRNA Student Nurse Shipping Coordinator: Karol Albert SRNA ANESTHESIA: Choice ESTIMATED [...] CULTURE (Canceled) Sushil Dean Jr., MD 04/08/25 1884 Description: RIGHT LEG DEEP WOUND FOR CULTURE [...] PM EDT [facility], [place] [address] OPERATIVE REPORT PATIENT NAME: Won Dennis DATE OF : 1980 PREOP DIAGNOSIS: Right Right below knee amputation stump infection POSTOP DIAGNOSIS: Same. PROCEDURE: Right Right 32115: Incision and drainage of surgical site infection 56291: Debridement of skin, subcutaneous tissue, muscle 30660: Wound vacuum-assisted closure SURGEON: Sushil Dean MD OPERATIVE TEAM: Bobtail Driver: Anum Sanchez RN Scrub Person: Hortencia Toribio; Gerald Ivey METAL POLISHER AND BUFFER APPRENTICE: Anesthesiologist: Luci Alonso DO ANESTHESIA: General [...] ago swellling of the area. seen at [facility] yesterday for CT and US, [...] this chart in the absence of a director community center. No orders to display RADIOLOGY: [x] Radiologist's [...] changes. DEBRA has spoke with Dena at [facility] today multiple times to get [...] with KELLEE and given themhis Medicare number [id number], she sent it to Admission. DEBRA spoke with Kerri, with [facility], and explained that he had Medicare A and B. However, it will not cover home infusion. It will be $64.00 a day out of packet. Patients can go to the Infusion center at [facility], and it will cover the [...] orders over to [facility] at [phone]. CM will follow up with them tomorrow [...] PM EDT Continued Stay Note [facility] Patient Name: Won Dennis Today's Date: 04/09/2025 Admit Date: 04/04/2025 Plan: Home Discharge Plan Row Name 04/09/25 1311 Plan Plan Home Patient/Family in Agreement with Plan yes Plan Comments CM spoke with patient at bedside today. Wheelchair from [employer] is at bedside. Patient getting PICC line [...] not included. Discharge Planning Assessment [facility] Patient Name: Won Dennis Today's Date: 04/07/2025 [...] family Patient/Family Anticipated Services at Transition case resource managerexecutive communications manager Anticipated family or friend will provide Discharge Needs Assessment Equipment Currently Used at Home glucometer;shower chair;pulse ox;bp cuff;prosthesis;crutches Equipment Needed After Discharge none Discharge Plan Row Name 04/07/25 1144 Plan Plan Home Patient/Family in Agreement with Plan yes Plan Comments CM spoke with patient at bedside today. Patient lives with and his 5 kids in [place]. 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 He has walker, cane, shower chair, and crutches. He requested a wheelchair for home. CM will order wheelchair [facility]. He is not current with home [...] CBC Auto Differential (04/11/2025 3:40 AM EDT) [facility] WBC 7.87 3.40 - 10.80 10*3/mm3 04/11/2025 4:02 AM EDT [facility] RBC 4.70 4.14 - 5.80 10*6/mm3 04/11/2025 4:02 AM [facility] Hemoglobin 12.8(L) 13.0 - 17.7 g/dL 04/11/2025 4:02 AM [facility] Hematocrit 40.5 37.5 - 51.0 % 04/11/2025 4:02 AM [facility] MCV 86.2 79.0 - 97.0 fL 04/11/2025 4:02 AM [facility] MCH 27.2 26.6 - 33.0 pg 04/11/2025 4:02 AM [facility] MCHC 31.6 31.5 - 35.7 g/dL 04/11/2025 4:02 AM [facility] RDW 12.9 12.3 - 15.4 % 04/11/2025 4:02 AM [facility] RDW-SD 40.5 37.0 - 54.0 fl 04/11/2025 4:02 AM [facility] MPV 9.2 6.0 - 12.0 fL 04/11/2025 4:02 AM [facility] Platelets 267 140 - 450 10*3/mm3 04/11/2025 4:02 AM [facility] Neutrophil % 59.5 42.7 - 76.0 % 04/11/2025 4:02 AM [facility] Lymphocyte % 26.3 19.6 - 45.3 % 04/11/2025 4:02 AM [facility] Monocyte % 9.3 5.0 - 12.0 % 04/11/2025 4:02 AM [facility] Eosinophil % 4.1 0.3 - 6.2 % 04/11/2025 4:02 AM [facility] Basophil % 0.4 0.0 - 1.5 % 04/[facility] Immature Grans % 0.4 0.0 - 0.5 % 04/11/2025 4:02 AM EDT [facility] Neutrophils, Absolute 4.69 1.70 - 7.00 10*3/mm3 04/11/2025 4:02 AM EDT [facility] Lymphocytes, Absolute 2.07 0.70 - 3.10 10*3/mm3 04/11/2025 4:02 AM EDT [facility] Monocytes, Absolute 0.73 0.10 - 0.90 10*3/mm3 04/11/2025 4:02 AM EDT [facility] Eosinophils, Absolute 0.32 0.00 - 0.40 10*3/mm3 04/11/2025 4:02 AM EDT [facility] Basophils, Absolute 0.03 0.00 - 0.20 10*3/mm3 04/11/2025 4:02 AM EDT [facility] Immature Grans, Absolute 0.03 0.00 - 0.05 10*3/mm3 04/11/2025 4:02 AM EDT [facility] nRBC 0.0 0.0 - 0.2 /100 WBC 04/11/2025 4:02 AM EDT [facility] Blood Venipuncture / Unknown 04/11/2025 3:40 AM EDT 04/11/2025 3:59 AM EDT us Sushil Dean Jr., MD LAB BLOOD ORDERABLES Fi nal Result [facility]
[address] [place] [address], * (ABNORMAL) Comprehensive Metabolic Panel (04/11/2025 3:40 AM EDT) Glucose 108(H) 65 - 99 mg/dL 04/11/2025 4:19 AM EDT [facility] BUN 12.5 6.0 - 20.0 mg/dL 04/11/2025 4:19 AM EDT [facility] Creatinine 0.68(L) 0.76 - 1.27 mg/dL 04/11/2025 4:19 AM [facility] Sodium 140 136 - 145 mmol/L 04/11/2025 4:19 AM [facility] Potassium 3.8 3.5 - 5.2 mmol/L 04/11/2025 4:19 AM [facility] Chloride 105 98 - 107 mmol/L 04/11/2025 4:19 AM [facility] CO2 28.2 22.0 - 29.0 mmol/L 04/11/2025 4:19 AM [facility] Calcium 8.2(L) 8.6 - 10.5 mg/dL 04/11/2025 4:19 AM [facility] Total Protein 6.1 6.0 - 8.5 g/dL 04/11/2025 4:19 AM [facility] Albumin 3.1(L) 3.5 - 5.2 g/dL 04/11/2025 4:19 AM [facility] ALT (SGPT) 52(H) 1 - 41 U/L 04/11/2025 4:19 AM [facility] AST (SGOT) 40 1 - 40 U/L 04/11/2025 4:19 AM [facility] Alkaline Phosphatase 99 39 - 117 U/L 04/11/2025 4:19 AM [facility] Total Bilirubin 0.2 0.0 - 1.2 mg/dL 04/11/2025 4:19 AM [facility] Globulin 3.0 gm/dL 04/11/2025 4:19 AM [facility] Comment:Calculated Result A/G Ratio 1.0 g/dL 04/11/2025 4:19 AM [facility] BUN/Creatinine Ratio 18.4 7.0 - 25.0 04/11/2025 4:19 AM [facility] Anion Gap 6.8 5.0 - 15.0 mmol/L 04/11/2025 4:19 AM [facility] eGFR 117.5 >60.0 mL/min/1.7 3 04/11/2025 4:19 AM EDT [facility] Blood Venipuncture / Unknown 04/11/2025 3:40 [...] APRN LAB BLOOD ORDERABLES Final Result [facility]
[address] [place] [address], * (ABNORMAL) CBC Auto Differential (04/10/2025 3:46 AM EDT) WBC 9.60 3.40 - 10.80 10*3/mm3 04/10/2025 3:56 AM EDT [facility] RBC 4.67 4.14 - 5.80 10*6/mm3 04/10/2025 3:56 AM EDT [facility] Hemoglobin 12.9(L) 13.0 - 17.7 g/dL 04/10/2025 3:56 AM EDT [facility] Hematocrit 40.1 37.5 - 51.0 % 04/10/2025 3:56 AM EDT [facility] MCV 85.9 79.0 - 97.0 fL 04/10/2025 3:56 AM EDT [facility] MCH 27.6 26.6 - 33.0 pg 04/[facility] MCHC 32.2 31.5 - 35.7 g/dL 04/10/2025 3:56 AM EDT [facility] RDW 12.9 12.3 - 15.4 % 04/10/2025 3:[facility] RDW-SD 40.5 37.0 - 54.0 fl 04/10/2025 3:56 AM EDT [facility] MPV 9.5 6.0 - 12.0 fL 04/10/2025 3:56 AM EDT [facility] Platelets 227 140 - 450 10*3/mm3 04/10/2025 3:56 AM [facility] Neutrophil % 59.1 42.7 - 76.0 % 04/10/2025 3:56 AM [facility] Lymphocyte % 29.0 19.6 - 45.3 % 04/10/2025 3:[facility] Monocyte % 8.1 5.0 - 12.0 % 04/10/2025 3:56 AM [facility] Eosinophil % 3.2 0.3 - 6.2 % 04/10/2025 3:56 AM [facility] Basophil % 0.4 0.0 - 1.5 % 04/10/2025 3:56 AM [facility] Immature Grans [...] 0.40 10*3/mm3 04/10/2025 3:56 AM EDT [facility] Basophils, Absolute 0.04 0.00 - 0.20 10*3/mm3 04/10/2025 3:56 AM EDT [facility] Immature Grans, Absolute 0.02 0.00 - 0.05 10*3/mm3 04/10/2025 3:56 AM EDT [facility] nRBC 0.0 0.0 - 0.2 /100 WBC 04/10/2025 3:56 AM EDT [facility] Blood Venipuncture / Unknown 04/10/2025 3:46 AM EDT 04/10/2025 3:53 AM EDT us Jason Álvarez DO LAB BLOOD ORDERABLES Final Resul t [facility]
[address] [place] [address], * (ABNORMAL) Basic Metabolic Panel (04/10/2025 3:46 AM EDT) Glucose 125(H) 65 - 99 mg/dL 04/10/2025 4:20 AM EDT [facility] BUN 15.9 6.0 - 20.0 mg/dL 04/10/2025 4:20 AM EDT [facility] Creatinine 0.77 0.76 - 1.27 mg/dL 04/10/2025 4:20 AM EDT [facility] Sodium 137 136 - 145 mmol/L 04/10/2025 4:20 AM EDT [facility] Potassium 3.9 3.5 - 5.2 mmol/L 04/10/2025 4:20 AM EDT [facility] Chloride 102 98 - 107 mmol/L 04/10/2025 4:20 AM EDT [facility] CO2 26.9 22.0 - 29.0 mmol/L 04/10/2025 4:20 AM EDT [facility] Calcium 7.9(L) 8.6 - 10.5 mg/dL 04/10/2025 4:20 AM EDT [facility] BUN/Creatinine Ratio 20.6 7.0 - 25.0 04/10/2025 4:20 AM EDT [facility] Anion Gap 8.1 5.0 - 15.0 mmol/L 04/10/2025 4:20 AM EDT [facility] eGFR 113.2 >60.0 mL/min/1.7 3 04/10/2025 4:20 AM EDT [facility] Blood Venipuncture / Unknown 04/10/2025 3:46 AM EDT 04/10/2025 3:52 AM EDT Narrative [facility] - 04/10/2025 4:20 AM EDT GFR [...] BLOOD ORDERABLES Final Resul t [facility]
[address] [place] [address], * Heparin Anti-Xa (04/10/2025 3:46 AM EDT) Heparin Anti-Xa (UFH) 0.35 0.30 - 0.70 IU/ml 04/10/2025 4:23 AM EDT [facility] Blood Venipuncture / Unknown 04/10/2025 3:46 AM EDT 04/10/2025 3:53 AM EDT [facility] LAB BLOOD ORDERABLES Final R esult [facility]
[address] [place] [address], * Heparin Anti-Xa (04/09/2025 10:05 AM EDT) Pathologist [facility] Heparin Anti-Xa (UFH) 0.36 0.30 - 0.70 IU/ml 04/09/2025 11:12 AM EDT [facility] Blood Venipuncture / Unknown 04/09/2025 10:05 AM EDT 04/09/2025 10:47 AM EDT [facility] LAB BLOOD ORDERABLES Final R esult [facility]
[address] [place] [address], * (ABNORMAL) CBC Auto Differential (04/09/2025 4:18 AM EDT) Pathologist [facility] WBC 11.00(H) 3.40 - 10.80 10*3/mm3 04/09/2025 4:50 AM EDT [facility] RBC 4.70 4.14 - 5.80 10*6/mm3 04/09/2025 4:50 AM EDT [facility] Hemoglobin 13.0 13.0 - 17.7 g/dL 04/09/2025 4:50 AM EDT [facility] Hematocrit 40.4 37.5 - 51.0 % 04/09/2025 4:50 AM EDT [facility] MCV 86.0 79.0 - 97.0 fL 04/09/2025 4:50 AM EDT [facility] MCH 27.7 26.6 - 33.0 pg 04/09/2025 4:50 AM EDT [facility] MCHC 32.2 31.5 - 35.7 g/dL 04/09/2025 4:50 AM EDT [facility] RDW 12.8 12.3 - 15.4 % 04/09/2025 4:50 AM [facility] RDW-SD 39.9 37.0 - 54.0 fl 04/09/2025 4:50 AM [facility] MPV 10.0 6.0 - 12.0 fL 04/09/2025 4:50 AM [facility] Platelets 211 140 - 450 10*3/mm3 04/09/2025 4:50 AM [facility] Neutrophil % 74.8 42.7 - 76.0 % 04/09/2025 4:50 AM [facility] Lymphocyte % 15.4(L) 19.6 - 45.3 % 04/09/2025 4:50 AM [facility] Monocyte % 8.5 5.0 - 12.0 % 04/09/2025 4:50 AM [facility] Eosinophil % 0.6 0.3 - 6.2 % 04/09/2025 4:50 AM [facility] Basophil % 0.4 0.0 - 1.5 % 04/09/2025 4:50 AM [facility] Immature Grans % 0.3 0.0 - 0.5 % 04/09/2025 4:50 AM [facility] Neutrophils, Absolute 8.23(H) 1.70 - 7.00 10*3/mm3 04/09/2025 4:50 AM [facility] Lymphocytes, Absolute 1.69 0.70 - 3.10 10*3/mm3 04/09/2025 4:50 AM [facility] Monocytes, Absolute 0.94(H) 0.10 - 0.90 10*3/mm3 04/09/2025 4:50 AM [facility] Eosinophils, Absolute 0.07 0.00 - 0.40 10*3/mm3 04/[facility] Basophils, Absolute 0.04 0.00 - 0.20 10*3/mm3 04/09/2025 4:50 AM EDT [facility] Immature Grans, Absolute 0.03 0.00 - 0.05 10*3/mm3 04/09/2025 4:50 AM EDT [facility] nRBC 0.0 0.0 - 0.2 /100 WBC 04/09/2025 4:50 AM EDT [facility] Blood Venipuncture / Unknown 04/09/2025 4:18 AM EDT 04/09/2025 4:31 AM EDT Sushil Dean Jr., MD LAB BLOOD ORDERABLES Fi nal Result Performing Organization Address City/[facility]/ZIP Co de Phone Number [facility]
[address] [place] [address], * Heparin Anti-Xa (04/09/2025 4:18 AM EDT) Heparin Anti-Xa (UFH) 0.41 0.30 - 0.70 IU/ml 04/09/2025 4:53 AM EDT [facility] Blood Venipuncture / Unknown 04/09/2025 4:18 AM EDT 04/09/2025 4:31 AM EDT Una LundbergD LAB BLOOD ORDERABLES Final R esult [facility]
[address] [place] [address], * (ABNORMAL) Basic Metabolic Panel (04/09/2025 4:18 AM EDT) Glucose 147(H) 65 - 99 mg/dL 04/09/2025 5:33 AM EDT [facility] BUN 23.0(H) 6.0 - 20.0 mg/dL 04/09/2025 5:33 AM EDT [facility] Creatinine 1.15 0.76 - 1.27 mg/dL 04/09/2025 5:33 AM EDT [facility] Sodium 135(L) 136 - 145 mmol/L 04/09/2025 5:33 AM EDT [facility] Potassium 4.2 3.5 - 5.2 mmol/L 04/09/2025 5:33 AM EDT [facility] Chloride 100 98 - 107 mmol/L 04/09/2025 5:33 AM EDT [facility] CO2 26.0 22.0 - 29.0 mmol/L 04/09/2025 5:33 AM EDT [facility] Calcium 8.2(L) 8.6 - 10.5 mg/dL 04/09/2025 5:33 AM EDT [facility] BUN/Creatinine Ratio 20.0 7.0 - 25.0 04/09/2025 5:33 AM EDT [facility] Anion Gap 9.0 5.0 - 15.0 mmol/L 04/09/2025 5:33 AM EDT [facility] eGFR 80.5 >60.0 mL/min/1.7 3 04/09/2025 5:33 AM EDT [facility] Blood Venipuncture / Unknown 04/09/2025 4:18 AM EDT 04/09/2025 4:29 AM EDT [facility] - 04/09/2025 5:33 AM [...] BLOOD ORDERABLES Fi nal Result [facility]
[address] [place] [address], * Wound Culture - Swab, Leg, Right (04/08/2025 3:40 PM EDT) Wound Culture No growth at 3 days ALIZA 04/11/2025 10:40 AM EDT [facility] Gram Stain Few (2+) WBCs seen 04/11/2025 10:40 AM EDT [facility] Gram Stain No organisms seen 04/11/2025 10:40 AM EDT [facility] Swab Structure of right lower limb / Unknown 04/08/2025 3:40 PM EDT 04/08/2025 8:05 PM EDT us Sushil Dean Jr., MD MICROBIOLOGY - GENERAL ORDERABLES Final Result Performing Organization Address City/[facility]/ZIP Co de Phone Number [facility]
[address] [place] [address], [facility]
[address] [place] [address], * Anaerobic Culture - Swab, Leg, Right (04/08/2025 3:40 PM EDT) Anaerobic Culture No anaerobes isolated at 5 days ALIZA 04/13/2025 7:24 AM EDT [facility] Swab Structure of right lower limb / Unknown 04/08/2025 3:40 PM EDT 04/08/2025 8:05 PM EDT us Sushil Dean Jr., MD MICROBIOLOGY - GENERAL ORDERABLES Final Result Performing Organization Address City/[facility]/ZIP Co de Phone Number [facility]
[address] [place] [address], * Scan Slide (04/08/2025 8:41 AM EDT) RBC Morphology Normal Normal 04/08/2025 11:02 AM EDT [facility] WBC Morphology Normal Normal 04/08/2025 11:02 AM EDT [facility] Platelet Estimate Adequate Normal 04/08/2025 11:02 AM EDT [facility] Clumped Platelets Present None Seen 04/08/2025 11:02 AM EDT [facility] Blood Venipuncture / Unknown 04/08/2025 8:41 AM EDT 04/08/2025 9:10 AM EDT Una Minda PharmD LAB BLOOD ORDERABLES Final R esult [facility]
[address] [place] [address], * (ABNORMAL) CBC Auto Differential (04/08/2025 8:41 AM EDT) WBC 10.07 3.40 - 10.80 10*3/mm3 04/08/2025 11:02 AM EDT [facility] RBC 5.01 4.14 - 5.80 10*6/mm3 04/08/2025 11:02 AM EDT [facility] Hemoglobin 14.0 13.0 - 17.7 g/dL 04/08/2025 11:02 AM EDT [facility] Hematocrit 42.7 37.5 - 51.0 % 04/08/2025 11:02 AM EDT [facility] MCV 85.2 79.0 - 97.0 fL 04/08/2025 11:02 AM EDT [facility] MCH 27.9 26.6 - 33.0 pg 04/08/2025 11:02 AM EDT [facility] MCHC 32.8 31.5 - 35.7 g/dL 04/08/2025 11:02 AM EDT [facility] RDW 12.6 12.3 - 15.4 % 04/08/2025 11:02 AM EDT [facility] RDW-SD 38.9 37.0 - 54.0 fl 04/08/2025 11:02 AM [facility] MPV 11.0 6.0 - 12.0 fL 04/08/2025 11:02 AM [facility] Platelets 118(L) 140 - 450 10*3/mm3 04/08/2025 11:02 AM [facility] Neutrophil % 85.1(H) 42.7 - 76.0 % 04/08/2025 11:02 AM [facility] Lymphocyte % 9.3(L) 19.6 - 45.3 % 04/08/2025 11:02 AM [facility] Monocyte % 4.6(L) 5.0 - 12.0 % 04/08/2025 11:02 AM [facility] Eosinophil % 0.3 0.3 - 6.2 % 04/08/2025 11:02 AM [facility] Basophil % 0.2 0.0 - 1.5 % 04/08/2025 11:02 AM [facility] Immature Grans % 0.5 0.0 - 0.5 % 04/08/2025 11:02 AM [facility] Neutrophils, Absolute 8.57(H) 1.70 - 7.00 10*3/mm3 04/08/2025 11:02 AM [facility] Lymphocytes, Absolute 0.94 0.70 - 3.10 10*3/mm3 04/08/2025 11:02 AM [facility] Monocytes, Absolute 0.46 0.10 - 0.90 10*3/mm3 04/08/2025 11:02 AM [facility] Eosinophils, Absolute 0.03 0.00 - 0.40 10*3/mm3 04/08/2025 11:02 AM [facility] Basophils, Absolute 0.02 0.00 - 0.20 10*3/mm3 04/08/2025 11:02 AM [facility] Immature Grans, Absolute 0.05 0.00 - 0.05 10*3/mm3 04/08/2025 11:02 AM EDT [facility] nRBC 0.0 0.0 - 0.2 /100 WBC 04/08/2025 11:02 AM EDT [facility] Blood Venipuncture / Unknown 04/08/2025 8:41 AM EDT 04/08/2025 9:10 AM EDT Una Perla PharmD LAB BLOOD ORDERABLES Final R esult [facility]
[address] [place] [address], * (ABNORMAL) Basic Metabolic Panel (04/08/2025 8:41 AM EDT) Glucose 125(H) 65 - 99 mg/dL 04/08/2025 9:51 AM EDT [facility] BUN 13.2 6.0 - 20.0 mg/dL 04/08/2025 9:51 AM EDT [facility] Creatinine 0.69(L) 0.76 - 1.27 mg/dL 04/08/2025 9:51 AM EDT [facility] Sodium 136 136 - 145 mmol/L 04/08/2025 9:51 AM EDT [facility] Potassium 4.6 3.5 - 5.2 mmol/L 04/08/2025 9:51 AM EDT [facility] Chloride 102 98 - 107 mmol/L 04/08/2025 9:51 AM EDT [facility] CO2 23.5 22.0 - 29.0 mmol/L 04/08/2025 9:51 AM EDT [facility] Calcium 8.4(L) 8.6 - 10.5 mg/dL 04/08/2025 9:51 AM EDT [facility] BUN/Creatinine Ratio 19.1 7.0 - 25.0 04/08/2025 9:51 AM EDT [facility] Anion Gap 10.5 5.0 - 15.0 mmol/L 04/08/2025 9:51 AM EDT [facility] eGFR 117.0 >60.0 mL/min/1.7 3 04/08/2025 9:51 AM EDT [facility] Blood Venipuncture / Unknown 04/08/2025 8:41 AM EDT 04/08/2025 9:09 AM EDT Narrative [facility] - 04/08/2025 9:51 AM EDT GFR [...] ORDERABLES Fi nal Result Performing Organization Address City/[facility]/ZIP Co de Phone Number [facility]
[address] [place] [address], * Heparin Anti-Xa (04/08/2025 8:41 AM EDT) Heparin Anti-Xa (UFH) 0.33 0.30 - 0.70 IU/ml 04/08/2025 9:40 AM EDT [facility] Blood Venipuncture / Unknown 04/08/2025 8:41 AM EDT 04/08/2025 9:10 AM EDT Sushil Dean Jr., MD LAB BLOOD ORDERABLES Fi nal Result Performing Organization Address City/[facility]/ZIP Co de Phone Number [facility]
[address] [place] [address], * FL C Arm During Surgery (04/07/2025 [...] seen 04/11/2025 10:40 AM EDT [facility] Gram Stain No organisms seen 04/11/2025 10:40 AM EDT [facility] Swab Structure of right lower limb / Unknown Collection / Unknown 04/07/2025 9:14 PM EDT 04/08/2025 4:36 AM EDT us Sushil Dean Jr., MD MICROBIOLOGY - GENERAL ORDERABLES Final Result Performing Organization Address City/[facility]/ZIP Co de Phone Number [facility]
[address] [place] [address], [place] [phone] [facility]
[address] [place] [address], [place] [phone] * Anaerobic Culture - Swab, Leg, Right [...] Result [facility]
[address] [place] [address], * Anaerobic Culture - Tissue, Leg (04/07/2025 9:13 PM EDT) Anaerobic Culture No anaerobes isolated at 5 days ALIZA 04/13/2025 7:21 AM EDT [facility] Tissue Lower limb structure / Unknown Collection / Unknown 04/07/2025 9:13 PM EDT 04/08/2025 4:54 AM EDT Jason Álvarez DO MICROBIOLOGY - GENERAL ORDERABLE S Final Result Performing Organization Address [facility]/State/ZIP Co de Phone Number [facility]
[address] [place] [address], * Tissue / Bone Culture - Tissue, Leg, Right (04/07/2025 9:13 PM EDT) Tissue Culture No growth at 3 days ALIZA 04/11/2025 10:36 AM EDT [facility] Gram Stain Rare (1+) WBCs seen 04/11/2025 10:36 AM EDT [facility] Gram Stain No organisms seen 04/11/2025 10:36 AM EDT [facility] Tissue Structure of right lower limb / Unknown 04/07/2025 9:13 PM EDT 04/08/2025 4:54 AM EDT Sushil Dean Jr., MD MICROBIOLOGY - GENERAL ORDERABLES Final Result [facility]
[address] [place] [address], [facility]
[address] [place] [address], [place] [phone] * (ABNORMAL) Wound Culture - Swab, Leg, Right (04/07/2025 9:07 PM EDT) Wound Culture Light growth (2+) Staphylococcus aureus, MRSA(A) ALIZA 04/10/2025 10:38 AM EDT [facility] Comment: Methicillin resistant Staphylococcus aureus, Patient may be an isolation risk. Gram Stain Few (2+) WBCs seen 04/10/2025 10:38 AM EDT [facility] Gram Stain No organisms seen 10:38 AM EDT [facility] Swab [...] Result [facility]
[address] [place] [address], [place] [phone] [facility]
[address] [place] [address], [place] [phone] * Anaerobic Culture - Swab, Leg, Right [...] Result [facility]
[address] [place] [address], * Heparin Anti-Xa (04/07/2025 9:10 AM EDT) Pathologist [facility] Heparin Anti-Xa ([facility]) 0.30 0.30 - 0.70 IU/ml 04/07/2025 10:12 AM EDT [facility] Blood Venipuncture / Unknown 04/07/2025 9:10 AM EDT 04/07/2025 9:38 AM EDT Una Perla PharmD LAB BLOOD ORDERABLES Final R esult Performing Organization Address City/[facility]/ZIP Co de Phone Number [facility]
[address] [place] [address], * (ABNORMAL) CBC Auto Differential (04/07/2025 9:10 AM EDT) Pathologist [facility] WBC 8.63 3.40 - 10.80 10*3/mm3 04/07/2025 9:50 AM EDT [facility] RBC 5.23 4.14 - 5.80 10*6/mm3 04/07/2025 9:50 AM EDT [facility] Hemoglobin 14.7 13.0 - 17.7 g/dL 04/07/2025 9:50 AM EDT [facility] Hematocrit 44.8 37.5 - 51.0 % 04/07/2025 9:50 AM EDT [facility] MCV 85.7 79.0 - 97.0 fL 04/07/2025 9:50 AM EDT [facility] MCH 28.1 26.6 - 33.0 pg 04/07/2025 9:50 AM EDT [facility] MCHC 32.8 31.5 - 35.7 g/dL 04/07/2025 9:50 AM EDT [facility] RDW 12.8 12.3 - 15.4 % 04/07/2025 9:50 AM [facility] RDW-SD 39.9 37.0 - 54.0 fl 04/07/2025 9:50 AM [facility] MPV 10.8 6.0 - 12.0 fL 04/07/2025 9:50 AM [facility] Platelets 149 140 - 450 10*3/mm3 04/07/2025 9:50 AM [facility] Neutrophil % 66.7 42.7 - 76.0 % 04/07/2025 9:50 AM [facility] Lymphocyte % 20.5 19.6 - 45.3 % 04/07/2025 9:50 AM [facility] Monocyte % 9.8 5.0 - 12.0 % 04/07/2025 9:50 AM [facility] Eosinophil % 2.1 0.3 - 6.2 % 04/07/2025 9:50 AM [facility] Basophil % 0.3 0.0 - 1.5 % 04/07/2025 9:50 AM [facility] Immature Grans % 0.6(H) 0.0 - 0.5 % 04/07/2025 9:50 AM [facility] Neutrophils, Absolute 5.75 1.70 - 7.00 10*3/mm3 04/07/2025 9:50 AM [facility] Lymphocytes, Absolute 1.77 0.70 - 3.10 10*3/mm3 04/07/2025 9:50 AM [facility] Monocytes, Absolute 0.85 0.10 - 0.90 10*3/mm3 04/07/2025 9:50 AM [facility] Eosinophils, Absolute 0.18 0.00 - 0.40 10*3/mm3 04/07/2025 9:50 AM [facility] Basophils, Absolute 0.03 0.00 - 0.20 10*3/mm3 04/07/2025 9:50 AM [facility] Immature Grans, Absolute 0.05 0.00 - 0.05 10*3/mm3 04/07/2025 9:50 AM EDT [facility] nRBC 0.0 0.0 - 0.2 /100 WBC 04/07/2025 9:50 AM EDT [facility] Blood Venipuncture / Unknown 04/07/2025 9:10 AM EDT 04/07/2025 9:38 AM EDT us Jason Álvarez DO LAB BLOOD ORDERABLES Final Resul t [facility]
[address] [place] [address], * (ABNORMAL) Basic Metabolic Panel (04/07/2025 9:10 AM EDT) Glucose 112(H) 65 - 99 mg/dL 04/07/2025 10:19 AM EDT [facility] BUN 13.1 6.0 - 20.0 mg/dL 04/07/2025 10:19 AM EDT [facility] Creatinine 0.77 0.76 - 1.27 mg/dL 04/07/2025 10:19 AM EDT [facility] Sodium 139 136 - 145 mmol/L 04/07/2025 10:19 AM EDT [facility] Potassium 4.2 3.5 - 5.2 mmol/L 04/07/2025 10:19 AM EDT [facility] Comment:Specimen hemolyzed. Result may be falsely elevated. Chloride 105 98 - 107 mmol/L 04/07/2025 10:19 AM EDT [facility] CO2 24.8 22.0 - 29.0 mmol/L 04/07/2025 10:19 AM EDT [facility] Calcium 8.6 8.6 - 10.5 mg/dL 04/07/2025 10:19 AM EDT [facility] BUN/Creatinine Ratio 17.0 7.0 - 25.0 04/07/2025 10:19 AM EDT [facility] Anion Gap 9.2 5.0 - 15.0 mmol/L 04/07/2025 10:19 AM EDT [facility] eGFR 113.2 >60.0 mL/min/1.7 3 04/07/2025 10:19 AM EDT [facility] Blood Venipuncture / Unknown 04/07/2025 9:10 AM EDT 04/07/2025 9:38 AM EDT Narrative [facility] - 04/07/2025 10:19 AM EDT GFR [...] BLOOD ORDERABLES Final Resul t [facility]
[address] [place] [address], * MRI Tibia Fibula Right With & [...] [place] 04/07/2025 9:58 AM EDT Workstation ID: [id number] Narrative 04/07/2025 9:58 AM EDT MRI TIBIA [...] [place] 04/07/2025 9:58 AM EDT Workstation ID: [id number] Sushil Dean Jr., MD IMG MRI ORDERABLES Mary Beth l Result * Heparin Anti-Xa (04/07/2025 1:42 AM EDT) [facility] Heparin Anti-Xa (UFH) 0.38 0.30 - 0.70 IU/ml 04/07/2025 2:14 AM EDT [facility] Blood Venipuncture / Unknown 04/07/2025 1:42 AM EDT 04/07/2025 1:54 AM EDT [facility] LAB BLOOD ORDERABLES Final R esult [facility]
[address] [place] [address], * Heparin Anti-Xa (04/06/2025 7:16 PM EDT) [facility] Heparin Anti-Xa (UFH) 0.33 0.30 - 0.70 IU/ml 04/06/2025 7:50 PM EDT [facility] Blood Venipuncture / Unknown 04/06/2025 7:16 PM EDT 04/06/2025 7:35 PM EDT [facility] LAB BLOOD ORDERABLES Final Res ult Performing Organization Address [facility] Co de Phone Number [facility]
[address] [place] [address], * Potassium (04/06/2025 7:16 PM EDT) [facility] Potassium 4.0 3.5 - 5.2 mmol/L 04/06/2025 7:53 PM EDT [facility] Blood Venipuncture / Unknown 04/06/2025 7:16 PM EDT 04/06/2025 7:35 PM EDT Jason Álvarez DO LAB BLOOD ORDERABLES Final Resul t Performing Organization Address [facility] de Phone Number [facility]
[address] [place] [address], * (ABNORMAL) Heparin Anti-Xa (04/06/2025 12:36 PM EDT) [facility] Heparin Anti-Xa (UFH) 0.24(L) 0.30 - 0.70 IU/ml 04/06/2025 1:23 PM EDT [facility] Blood Venipuncture / Unknown 04/06/2025 12:36 PM EDT 04/06/2025 1:07 PM EDT Una Perla PharmD LAB BLOOD ORDERABLES Final R esult Performing Organization Address [facility] Co de Phone Number [facility]
[address] [place] [address], * (ABNORMAL) Heparin Anti-Xa (04/06/2025 3:42 AM EDT) [facility] Heparin Anti-Xa (UFH) 0.25(L) 0.30 - 0.70 IU/ml 04/06/2025 5:30 AM EDT [facility] Blood Venipuncture / Unknown 04/06/2025 3:42 AM EDT 04/06/2025 4:59 AM EDT [facility] LAB BLOOD ORDERABLES Final R esult [facility]
[address] [place] [address], * (ABNORMAL) Basic Metabolic Panel (04/06/2025 3:42 AM EDT) [facility] Glucose 94 65 - 99 mg/dL 04/06/2025 5:59 AM EDT [facility] BUN 12.8 6.0 - 20.0 mg/dL 04/06/2025 5:59 AM EDT [facility] Creatinine 0.80 0.76 - 1.27 mg/dL 04/06/2025 5:59 AM EDT [facility] Sodium 138 136 - 145 mmol/L 04/06/2025 5:59 AM EDT [facility] Potassium 3.6 3.5 - 5.2 mmol/L 04/06/2025 5:59 AM EDT [facility] Chloride 103 98 - 107 mmol/L 04/06/2025 5:59 AM EDT [facility] CO2 24.2 22.0 - 29.0 mmol/L 04/06/2025 5:59 AM EDT [facility] Calcium 8.0(L) 8.6 - 10.5 mg/dL 04/06/2025 5:59 AM EDT [facility] BUN/Creatinine Ratio 16.0 7.0 - 25.0 04/06/2025 5:59 AM EDT [facility] Anion Gap 10.8 5.0 - 15.0 mmol/L 04/06/2025 5:59 AM EDT [facility] eGFR 111.9 >60.0 mL/min/1.7 3 04/06/2025 5:59 AM EDT [facility] Blood Venipuncture / Unknown 04/06/2025 3:42 AM EDT 04/06/2025 5:20 AM EDT [facility] - 04/06/2025 5:59 AM [...] BLOOD ORDERABLES Final Resul t [facility]
[address] [place] [address], * (ABNORMAL) CBC Auto Differential (04/06/2025 3:41 AM EDT) WBC 10.86(H) 3.40 - 10.80 10*3/mm3 04/06/2025 5:04 AM EDT [facility] RBC 5.08 4.14 - 5.80 10*6/mm3 04/06/2025 5:04 AM EDT [facility] Hemoglobin 13.9 13.0 - 17.7 g/dL 04/06/2025 5:04 AM EDT [facility] Hematocrit 43.7 37.5 - 51.0 % 04/06/2025 5:04 AM EDT [facility] MCV 86.0 79.0 - 97.0 fL [facility] MCH 27.4 26.6 - 33.0 pg 04/06/2025 5:04 AM [facility] MCHC 31.8 31.5 - 35.7 g/dL 04/06/2025 5:04 AM [facility] RDW 12.8 12.3 - 15.4 % 04/06/2025 5:04 AM [facility] RDW-SD 40.0 37.0 - 54.0 fl 04/06/2025 5:04 AM [facility] MPV 11.7 6.0 - 12.0 fL 04/06/2025 5:04 AM [facility] Platelets 115(L) 140 - 450 10*3/mm3 04/06/2025 5:04 AM [facility] Neutrophil % 65.3 42.7 - 76.0 % 04/06/2025 5:04 AM [facility] Lymphocyte % 20.5 19.6 - 45.3 % 04/06/2025 5:04 AM [facility] Monocyte % 11.8 5.0 - 12.0 % 04/06/2025 5:04 AM [facility] Eosinophil % 1.8 0.3 - 6.2 % 04/06/2025 5:04 AM [facility] Basophil % 0.3 0.0 - 1.5 % 04/06/2025 5:[facility] Immature Grans % 0.3 0.0 - 0.5 % 04/06/2025 5:04 AM [facility] Neutrophils, Absolute 7.09(H) 1.70 - 7.00 10*3/mm3 04/06/2025 5:[facility] Lymphocytes, Absolute 2.23 0.70 - 3.10 10*3/mm3 04/06/2025 5:[facility] Monocytes, Absolute 1.28(H) 0.10 - 0.90 10*3/mm3 04/06/2025 5:04 AM EDT [facility] Eosinophils, Absolute 0.20 0.00 - 0.40 10*3/mm3 04/06/2025 5:04 AM EDT [facility] Basophils, Absolute 0.03 0.00 - 0.20 10*3/mm3 04/06/2025 5:04 AM EDT [facility] Immature Grans, Absolute 0.03 0.00 - 0.05 10*3/mm3 04/06/2025 5:04 AM EDT [facility] nRBC 0.0 0.0 - 0.2 /100 WBC 04/06/2025 5:04 AM EDT [facility] Blood Venipuncture / Unknown 04/06/2025 3:41 AM EDT 04/06/2025 4:58 AM EDT Jason Álvarez DO LAB BLOOD ORDERABLES Final Resul t Performing Organization Address City/[facility] Co de Phone Number [facility]
[address] [place] [address], [place] [phone] * Heparin Anti-Xa (04/05/2025 8:43 PM EDT) Pathologist [facility] Heparin Anti-Xa (UFH) 0.38 0.30 - 0.70 IU/ml 04/05/2025 9:09 PM EDT [facility] Blood Venipuncture / Unknown 04/05/2025 8:43 PM EDT 04/05/2025 8:55 PM EDT us [facility] LAB BLOOD ORDERABLES Final Res ult Performing Organization Address City/[facility] Co de Phone Number [facility]
[address] [place] [address], [place] [phone] * CK (04/05/2025 12:15 PM EDT) Creatine Kinase 140 20 - 200 U/L 04/05/2025 1:31 PM EDT [facility] Blood Venipuncture / Unknown 04/05/2025 12:15 PM EDT 04/05/2025 1:03 PM EDT Carlton Mead MD LAB BLOOD ORDERABLES Final R esult Performing Organization Address City/[facility]/ZIP Co de Phone Number [facility]
[address] [place] [address], * (ABNORMAL) Heparin Anti-Xa (04/05/2025 12:15 PM EDT) [facility] Heparin Anti-Xa (UFH) 0.17(L) 0.30 - 0.70 IU/ml 04/05/2025 1:21 PM EDT [facility] Blood Venipuncture / Unknown 04/05/2025 12:15 PM EDT 04/05/2025 1:04 PM EDT Una Perla PharmD LAB BLOOD ORDERABLES Final R esult Performing Organization Address City/[facility] Co de Phone Number [facility]
[address] [place] [address], * (ABNORMAL) aPTT (04/05/2025 3:54 AM EDT) [facility] PTT 35.3(L) 60.0 - 90.0 seconds 04/05/2025 4:31 AM EDT [facility] Blood Venipuncture / Unknown 04/05/2025 3:54 AM EDT 04/05/2025 4:15 AM EDT Narrative [facility] - 04/05/2025 4:31 AM EDT PTT = The equivalent PTT values for the therapeutic range of heparin levels at 0.3 to 0.5 U/ml are 60 to 70 seconds. [employer] LAB BLOOD ORDERABLES Final R esult [facility]
[address] [place] [address], * Heparin Anti-Xa (04/05/2025 3:54 AM EDT) Pathologist [facility] Heparin Anti-Xa (UFH) 0.30 0.30 - 0.70 IU/ml 04/05/2025 4:32 AM EDT [facility] Blood Venipuncture / Unknown 04/05/2025 3:54 AM EDT 04/05/2025 4:15 AM EDT [employer] LAB BLOOD ORDERABLES Final R esult Performing Organization Address City/[facility]/ZIP Co de Phone Number [facility]
[address] [place] [address], * (ABNORMAL) CBC Auto Differential (04/05/2025 3:54 AM EDT) [facility] WBC 11.18(H) 3.40 - 10.80 10*3/mm3 04/05/2025 4:20 AM EDT [facility] RBC 5.00 4.14 - 5.80 10*6/mm3 04/05/2025 4:20 AM EDT [facility] Hemoglobin 13.9 13.0 - 17.7 g/dL 04/05/2025 4:20 AM EDT [facility] Hematocrit 42.4 37.5 - 51.0 % 04/05/2025 4:20 AM EDT [facility] MCV 84.8 79.0 - 97.0 fL 04/05/2025 4:20 AM EDT [facility] MCH 27.8 26.6 - 33.0 pg 04/05/2025 4:20 AM EDT [facility] MCHC 32.8 31.5 - 35.7 g/dL 04/05/2025 4:20 AM [facility] RDW 12.9 12.3 - 15.4 % 04/05/2025 4:20 AM [facility] RDW-SD 39.7 37.0 - 54.0 fl 04/05/2025 4:20 AM [facility] MPV 10.2 6.0 - 12.0 fL 04/05/2025 4:20 AM [facility] Platelets 160 140 - 450 10*3/mm3 04/05/2025 4:20 AM [facility] Neutrophil % 73.5 42.7 - 76.0 % 04/05/2025 4:20 AM [facility] Lymphocyte % 14.0(L) 19.6 - 45.3 % 04/05/2025 4:20 AM [facility] Monocyte % 11.0 5.0 - 12.0 % 04/05/2025 4:20 AM [facility] Eosinophil % 0.8 0.3 - 6.2 % 04/05/2025 4:20 AM [facility] Basophil % 0.3 0.0 - 1.5 % 04/05/2025 4:20 AM [facility] Immature Grans % 0.4 0.0 - 0.5 % 04/05/2025 4:20 AM [facility] Neutrophils, Absolute 8.23(H) 1.70 - 7.00 10*3/mm3 04/05/2025 4:20 AM [facility] Lymphocytes, Absolute 1.56 0.70 - 3.10 10*3/mm3 04/05/2025 4:20 AM [facility] Monocytes, Absolute 1.23(H) 0.10 - 0.90 10*3/mm3 04/05/2025 4:20 AM [facility] Eosinophils, Absolute 0.09 0.00 - 0.40 10*3/mm3 04/05/2025 4:20 AM [facility] Basophils, Absolute 0.03 0.00 - 0.20 10*3/mm3 04/05/2025 4:20 AM EDT [facility] Immature Grans, Absolute 0.04 0.00 - 0.05 10*3/mm3 04/05/2025 4:20 AM EDT [facility] nRBC 0.0 0.0 - 0.2 /100 WBC 04/05/2025 4:20 AM EDT [facility] Blood Venipuncture / Unknown 04/05/2025 3:54 AM EDT 04/05/2025 4:16 AM EDT Una Perla PharmD LAB BLOOD ORDERABLES Final R esult [facility]
[address] [place] [address], * (ABNORMAL) Basic Metabolic Panel (04/05/2025 3:54 AM EDT) Glucose 152(H) 65 - 99 mg/dL 04/05/2025 4:40 AM EDT [facility] BUN 17.3 6.0 - 20.0 mg/dL 04/05/2025 4:40 AM EDT [facility] Creatinine 0.92 0.76 - 1.27 mg/dL 04/05/2025 4:40 AM EDT [facility] Sodium 136 136 - 145 mmol/L 04/05/2025 4:40 AM EDT [facility] Potassium 3.9 3.5 - 5.2 mmol/L 04/05/2025 4:40 AM EDT [facility] Chloride 103 98 - 107 mmol/L 04/05/2025 4:40 AM EDT [facility] CO2 24.0 22.0 - 29.0 mmol/L 04/05/2025 4:40 AM EDT [facility] Calcium 7.8(L) 8.6 - 10.5 mg/dL 04/05/2025 4:40 AM EDT [facility] BUN/Creatinine Ratio 18.8 7.0 - 25.0 04/05/2025 4:40 AM EDT [facility] Anion Gap 9.0 5.0 - 15.0 mmol/L 04/05/2025 4:40 AM EDT [facility] eGFR 105.2 >60.0 mL/min/1.7 3 04/05/2025 4:40 AM EDT [facility] Blood Venipuncture / Unknown 04/05/2025 3:54 [...] BLOOD ORDERABLES Final Re sult [facility]
[address] [place] [address], * (ABNORMAL) aPTT (04/05/2025 12:18 AM EDT) PTT 33.6(L) 60.0 - 90.0 seconds 04/05/2025 12:53 AM EDT [facility] Blood Venipuncture / Unknown 04/05/2025 12:18 AM EDT 04/05/2025 12:37 AM EDT [facility] - 04/05/2025 12:53 AM EDT PTT = The equivalent PTT values for the therapeutic range of heparin levels at 0.3 to 0.5 U/ml are 60 to 70 seconds. DeskGod PharmD LAB BLOOD ORDERABLES Final R esult [facility]
[address] [place] [address], [place] [phone] * (ABNORMAL) Protime-INR (04/05/2025 12:18 AM EDT) Protime 15.9(H) 12.2 - 15.3 Seconds 04/05/2025 12:53 AM EDT [facility] INR 1.19(H) 0.89 - 1.12 04/05/2025 12:53 AM EDT [facility] Blood Venipuncture / Unknown 04/05/2025 12:18 AM EDT 04/05/2025 12:37 AM EDT DeskGod PharmD LAB BLOOD ORDERABLES Final R esult Performing Organization Address [facility] Co de Phone Number [facility]
[address] [place] [address], [place] [phone] * Heparin Anti-Xa (04/05/2025 12:18 AM EDT) Pathologist [facility] Heparin Anti-Xa (UFH) 0.39 0.30 - 0.70 IU/ml 04/05/2025 12:54 AM EDT [facility] Blood Venipuncture / Unknown 04/05/2025 12:18 AM EDT 04/05/2025 12:37 AM EDT [employer] PharmD LAB BLOOD ORDERABLES Final R esult Performing Organization Address City/[facility]/ZIP Co de Phone Number [facility]
[address] [place] [address], [place] [phone] * MRI Tibia Fibula Right With & [...] MD 04/04/2025 11:00 PM EDT Workstation ID: [id number] Narrative 04/04/2025 11:00 PM EDT MRI TIBIA [...] MD 04/04/2025 11:00 PM EDT Workstation ID: [id number] Leonora Shepherd MD IMG MRI ORDERABLES Final Resu lt * POC Creatinine (04/04/2025 2:49 PM EDT) Creatinine 1.10 0.60 - 1.30 mg/dL 04/07/2025 7:14 PM EDT [facility] Comment:Serial Number: [id number] 7Operator: [id number] Venous Blood 04/04/2025 2:49 PM EDT 04/07/2025 7:14 PM EDT Jason Álvarez DO POINT OF CARE TEST ORDERABLES Fi nal Result [facility]
[address] [place] [address], [place] [phone] * (ABNORMAL) CBC Auto Differential (04/04/2025 2:47 PM EDT) [facility] [employer] [facility] Signature WBC 12.72(H) 3.40 - 10.80 10*3/mm3 04/04/2025 2:56 PM EDT [facility] RBC 5.64 4.14 - 5.80 10*6/mm3 04/04/2025 2:56 PM EDT [facility] Hemoglobin 15.3 13.0 - 17.7 g/dL 04/04/2025 2:56 PM EDT [facility] Hematocrit 47.9 37.5 - 51.0 % 04/04/2025 2:56 PM EDT [facility] MCV 84.9 79.0 - 97.0 fL 04/04/2025 2:56 PM EDT [facility] MCH 27.1 26.6 - 33.0 pg 04/04/2025 2:56 PM EDT [facility] MCHC 31.9 31.5 - 35.7 g/dL 04/04/2025 2:56 PM EDT [facility] RDW 13.1 12.3 - 15.4 % 04/04/2025 2:56 PM EDT [facility] RDW-SD 40.3 37.0 - 54.0 fl 04/04/2025 2:56 PM EDT [facility] MPV 9.4 6.0 - 12.0 fL 04/04/2025 2:56 PM EDT [facility] Platelets 232 140 - 450 10*3/mm3 04/04/2025 2:56 PM EDT [facility] Neutrophil % 74.9 42.7 - 76.0 % 04/04/2025 2:56 PM EDT [facility] Lymphocyte % 13.1(L) 19.6 - 45.3 % 04/04/2025 2:56 PM EDT [facility] Monocyte % 11.2 5.0 - 12.0 % 04/04/2025 2:56 PM EDT [facility] Eosinophil % 0.4 0.3 - 6.2 % 04/04/2025 2:56 PM EDT [facility] Basophil % 0.2 0.0 - 1.5 % 04/04/2025 2:56 PM EDT [facility] Immature Grans % 0.2 0.0 - 0.5 % 04/04/2025 2:56 PM EDT [facility] Neutrophils, Absolute 9.52(H) 1.70 - 7.00 10*3/mm3 04/04/2025 2:56 PM EDT [facility] Lymphocytes, Absolute 1.66 0.70 - 3.10 10*3/mm3 04/04/2025 2:56 PM EDT [facility] Monocytes, Absolute 1.43(H) 0.10 - 0.90 10*3/mm3 04/04/2025 2:56 PM EDT [facility] Eosinophils, Absolute 0.05 0.00 - 0.40 10*3/mm3 04/04/2025 2:56 PM EDT [facility] Basophils, Absolute 0.03 0.00 - 0.20 10*3/mm3 04/04/2025 2:56 PM EDT [facility] Immature Grans, Absolute 0.03 0.00 - 0.05 10*3/mm3 04/04/2025 2:56 PM EDT [facility] nRBC 0.0 0.0 - 0.2 /100 WBC 04/04/2025 2:56 PM EDT [facility] Blood Venipuncture / Unknown 04/04/2025 2:47 PM EDT 04/04/2025 2:52 PM EDT us Mario Crowley DO LAB BLOOD ORDERABLES Fin al Result [facility]
[address] [place] [address], * (ABNORMAL) C-reactive Protein (04/04/2025 2:47 PM EDT) Pathologist [facility] C-Reactive Protein 8.57(H) 0.00 - 0.50 mg/dL 04/04/2025 3:26 PM EDT [facility] Blood Venipuncture / Unknown 04/04/2025 2:47 PM EDT 04/04/2025 2:52 PM EDT Mario Ortiz Keo LAB BLOOD ORDERABLES Fin al Result [facility]
[address] [place] [address], * (ABNORMAL) Sedimentation Rate (04/04/2025 2:47 PM EDT) [facility] Sed Rate 51(H) 0 - 15 mm/hr 04/04/2025 3:06 PM EDT [facility] Blood Venipuncture / Unknown 04/04/2025 2:47 PM EDT 04/04/2025 2:52 PM EDT Mario Ortiz Keo LAB BLOOD ORDERABLES Fin al Result Performing Organization Address City/[facility]/ZIP Co de Phone Number [facility]
[address] [place] [address], * Comprehensive Metabolic Panel (04/04/2025 2:47 PM EDT) [facility] Glucose 90 65 - 99 mg/dL 04/04/2025 3:26 PM EDT [facility] BUN 18.3 6.0 - 20.0 mg/dL 04/04/2025 3:26 PM EDT [facility] Creatinine 0.94 0.76 - 1.27 mg/dL 04/04/2025 3:26 PM EDT [facility] Sodium 136 136 - 145 mmol/L 04/04/2025 3:26 PM EDT [facility] Potassium 3.8 3.5 - 5.2 mmol/L 04/04/2025 3:26 PM EDT [facility] Chloride 100 98 - 107 mmol/L 04/04/2025 3:26 PM EDT [facility] CO2 25.3 22.0 - 29.0 mmol/L 04/04/2025 3:26 PM EDT [facility] Calcium 8.6 8.6 - 10.5 mg/dL 04/04/2025 3:26 PM EDT [facility] Total Protein 7.3 6.0 - 8.5 g/dL 04/04/2025 3:26 PM EDT [facility] Albumin 4.1 3.5 - 5.2 g/dL 04/04/2025 3:26 PM EDT [facility] ALT (SGPT) 26 1 - 41 U/L 04/04/2025 3:26 PM EDT [facility] AST (SGOT) 25 1 - 40 U/L 04/04/2025 3:26 PM EDT [facility] Alkaline Phosphatase 106 39 - 117 U/L 04/04/2025 3:26 PM T [facility] Total Bilirubin 1.0 0.0 - 1.2 mg/dL 04/04/2025 3:26 PM EDT [facility] Globulin 3.2 gm/dL 04/04/2025 3:26 PM T [facility] Comment:Calculated Result A/G Ratio 1.3 g/dL 04/04/2025 3:26 PM EDT [facility] BUN/Creatinine Ratio 19.5 7.0 - 25.0 04/04/2025 3:26 PM T [facility] Anion Gap 10.7 5.0 - 15.0 mmol/L 04/04/2025 3:26 PM T [facility] eGFR 102.5 >60.0 mL/min/1.7 3 04/04/2025 3:26 PM [facility] Blood Venipuncture / Unknown 04/04/2025 2:47 PM EDT 04/04/2025 2:52 PM EDT Narrative [facility] - 04/04/2025 3:26 PM EDT GFR [...] BLOOD ORDERABLES Fin al Result [facility]
[address] [place] [address], documented in this encounter Visit Diagnoses Diagnosis [...] BPA Driven Protocol [facility] Electrolyte Replacement Protocol Algorithm to View [...] BPA Driven Protocol [facility] Electrolyte Replacement Protocol Algorithm to View [...] Salazar, KELL)1943 (Given - Provider: Anahy Marcelino, SPR[place] B[place]ER)2129 (Canceled Entry - Provider: Anahy Marcelino [place]ER - Comment: previously given) 0837 (Given - [...] prescribed for a lower pain scale. ([facility]) If given for pain, use the [...] Continuous Medication Order 04/09/2025 04/10/2025 04/11/2025 heparin [id number] units/250 mL (100 units/mL) in 0.45 % [...] BPA Driven Protocol [facility] Electrolyte Replacement Protocol Algorithm to View [...] documented as of this encounter Care Teams Historic Preservationist Relationship Specialty Start Date End Date Provider, [place] [address] PCP - General 05/09/23 documented as of this encounter
--- OUTSIDE RECORDS SUMMARY | 2025-04-08 15:34 | XMS_ITS | Encounter Summary ---
Author Organization [facility] Address [address] [place] [address] Care Team Providers Care Student Activities Director Name Role Phone Provider, No Known Primary Care Provider Unavail able Reason for Visit * Auth/Cert Specialty Diagnoses / Procedures Referred By Bulmaro muniz Referred To Contact Diagnoses Right BKA infection Referral ID Status Reason Start Date Expiration Date Visits Re quested Visits Authorized [id number] 1 1 Encounter Details Date Type Department Care Team (Late st Contact Info) Description 04/08/2025 3:34 PM EDT Anesthesia Event [facility] OR [address] [place] [address] Ulises Hoffman MD [address] [place] [address] Jairo Brooks MD [address] [place] [address] Anesthesia Record Procedure Summary Procedure Name Responsible [...] Recorded In the past 12 months has [employer], oil, or water [employer] threatened to shut off services in your [...] Date: 04/08/25 Room / Location: [facility] OR [address] [place] [address] [facility] [place] Anesthesia Start: 1533 Anesthesia Stop: [...] ROS Abdominal Substance History - negative use STEAM FINISHER negative production expediter ROS Other Anesthesia Plan ASA 3 general [...] documented as of this encounter Care Teams Student Activities Director Relationship Specialty Start Date End Date Provider, [place] [address] PCP - General 05/09/23 documented as of this encounter
--- OUTSIDE RECORDS SUMMARY | 2025-04-20 09:03 | XMS_ITS | Clinical Summary ---
Author Organization [facility] Address [address] [place] [address] Phone Care Team Providers Care Specialist Field Engineer Name Role Phone Unavailable Unavailable Conditions or Problems No information available. Medications No information available. Medications Administered No information available. Allergies, Adverse Reactions, Alerts No information available. Results No information available. Plan of Care No information available. Procedures No information available. Vital Signs No information available. Immunizations No information available. Advance Directives No information available.
--- OUTSIDE RECORDS SUMMARY | 2025-04-20 09:05 | XMS_ITS | Encounter Summary ---
Author Organization Healthcare Address [address] [place] [address] Care Team Providers Care Floor Space Allocator Name Role Phone Unavailable Primary Care Provider Unavailabl e Encounter Details Date Type Department Care Team (Late st Contact Info) Description 05/13/2023 Lab Requisition [facility] [address] [place] [address] Sushil Dean MD [address] [facility] [place] [address] Encounter for general adult medical examination without [...] O RDERABLES Final Result Performing Organization Address [facility] Co de Phone Number [facility] [address] [place] [address] * Anaerobic Culture (05/13/2023 9:17 AM EDT) Culture No growth at day 4 05/20/2023 10:35 AM EST [facility] Bone 05/13/2023 9:17 AM EDT 05/13/2023 1:25 PM EDT us Sushil Dean MD LAB MICROBIOLOGY - GENERAL O RDERABLES Final Result Performing Organization Address [facility] de Phone Number [facility] [address] [place] [address] * Bone Culture and Gram Stain (05/13/2023 [...] O RDERABLES Final Result Performing Organization Address [facility] de Phone Number [facility] [address] [place] [address] documented in this encounter Visit Diagnoses Diagnosis Encounter for general adult medical examination without abnormal findings documented in this encounter
--- OUTSIDE RECORDS SUMMARY | 2025-04-20 09:05 | XMS_ITS | Encounter Summary ---
Author Organization Healthcare Address [address] [place] [address] Care Team Providers Care Fertilizer Applicator Name Role Phone Unavailable Primary Care Provider Unavailabl e Encounter Details Date Type Department Care Team (Late st Contact Info) Description 10/19/2022 Lab Requisition [facility] [address] [place] [address] Sushil Dean MD [address] [place] [address] Encounter for general adult medical examination without [...] by MALDI tof mass spectrometry using the [employer] database and is for research use only. The organism value for this result has been updated. These results have been appended to the previously preliminary verified report. Bone Specimen from bone / Unknown 10/19/2022 5:17 PM EDT 10/19/2022 9:49 PM EDT Sushil Dean MD LAB MICROBIOLOGY - GENERAL O RDERABLES Final Result Performing Organization Address [facility] de Phone Number HEALTH[facility]ARE LAB [address] [place] [address] * Bone Culture and Gram Stain (10/19/2022 5:17 PM EDT) Culture No growth at day 4 2022 8:14 AM EDT [facility] Gram Stain Result Few Polymorphonuclear leukocytes 10/23/2022 8:14 AM EDT [facility] Gram Stain Result No organisms seen 10/23/2022 8:[address] [facility] Bone Specimen from bone / Unknown 10/19/2022 5:17 PM EDT 10/19/2022 9:49 PM EDT Sushil Dean MD LAB MICROBIOLOGY - GENERAL O RDERAADDI Final Result Performing Organization Address [facility] Phone Number [facility] [address] [place] [address] documented in this encounter Visit Diagnoses Diagnosis Encounter for general adult medical examination without abnormal findings documented in this encounter
--- OUTSIDE RECORDS SUMMARY | 2025-04-20 09:05 | XMS_ITS | Encounter Summary ---
Author Organization Healthcare Address [address] [place] [address] Care Team Providers Care Service Aide Name Role Phone Unavailable Primary Care Provider Unavailabl e Encounter Details Date Type Department Care Team (Late st Contact Info) Description 08/12/2022 Lab Requisition [facility] [address] [place] [address] Sushil Dean MD [address] [place] [address] Encounter for general adult medical examination without [...] has been identified using the FDA Approved youwhoer [place] System The organism value for this [...] O ERIC Final Result Performing Organization Address City/[facility] de Phone Number HEALTHCARE LAB [address] [place] [address] * Bone Culture and Gram Stain (08/12/2022 [...] O RDERABLES Final Result Performing Organization Address City/[facility] de Phone Number [facility] [address] [place] [address] documented in this encounter Visit Diagnoses Diagnosis Encounter for general adult medical examination without abnormal findings documented in this encounter
--- OUTSIDE RECORDS SUMMARY | 2025-04-20 09:05 | XMS_ITS | Encounter Summary ---
Author Organization Healthcare Address [address] [place] [address] Care Team Providers Care Busperson Name Role Phone Unavailable Primary Care Provider Unavailabl e Encounter Details Date Type Department Care Team (Late st Contact Info) Description 10/01/2022 Lab Requisition [facility] [address] [place] [address] Sushil Dean MD [address] [facility] [place] [address] Encounter for general adult medical examination without [...] has been identified using the FDA Approved Tamocoyper CA System The organism value for this [...] 10/04/2022 2:17 PM EDT Refer to culture [id number] FOR SUSCEPTIBILITIES ON NEELIMA ALBICANS us Sushil Dean MD LAB MICROBIOLOGY - GENERAL O RDERABLES Final Result [facility] [address] [place] [id number] documented in this encounter Visit Diagnoses Diagnosis Encounter for general adult medical examination without abnormal findings documented in this encounter
--- OUTSIDE RECORDS SUMMARY | 2025-04-20 09:05 | XMS_ITS | Clinical Summary ---
Author Organization [facility] Address [address] [place] [address] Care Team Providers Care Foster Care Social Worker Name Role Phone Provider, No Known [...] Discontinue d(Stop Taking at Discharge) Lactobacillus- Inulin ([facility] [place] [employer] [facility]) capsule Take 200 mg by mouth Daily. [...] Anesthesia Event [facility] [place] [place] [address] [place] [phone] Ulises Hoffman MD Wells, Jeremy B., MD 04/08/2025 2:45 PM EDT - 04/08/2025 4:04 PM EDT Surgery [facility] OR [address] [place] [address] Sushil Dean Jr., MD LEG DEBRIDEMENT AND IRRIGATION 04/07/2025 8:36 PM EDT Anesthesia Event [facility] OR [address] [place] [address] Luci Alonso DO 04/07/2025 6:00 PM EDT - 04/07/2025 6:52 PM EDT Surgery [facility] OR [address] [place] [address] Sushil Dean Jr., MD LEG DEBRIDEMENT, IRRIGATION 04/04/2025 4:10 PM EDT - 04/11/2025 1:58 PM EDT Hospital Encounter [facility] 5G [address] [place] [address] Mario Crowley DO Anderson, Laurie, [...] drink = 0.6 oz pur e alcohol) [facility] Utilities Answer Date Recorded In the past 12 months has [employer], gas, oil, or water [employer] threatened to shut off services in your [...] or training? Not on file Preferred Language Indian 04/07/2025 Sex and Gender Information Value Date [...] this topic Medical Devices Implanted Type Area Regional Business Development Manager Device Identifier Shelf Expiration Date Model / Serial / Lot Dev Wnd/Cls Contrl Tiss [employer]ata[employer] Spiral Pls Pds Ct1 0 22cm - [id number] Implanted:Qty: 1 on 04/08/2025 by Sushil Dean Jr., MD at [facility] Implant Right: Leg [employer] 12/07/2025 [id number] / / [id number] Procedures Procedure Name Priority [...] 3:4 0 PM EDT Right BKA infection DE SEC ABDOMINAL WALL SUTURE EVISCERATION/DEHSN 04/08/2025 3:20 [...] resultswithin the time period is included. Pathologist [facility] WBC 7.87 3.40 - 10.80 10*3/mm3 04/11/2025 4:02 AM EDT [facility] RBC 4.70 4.14 - 5.80 10*6/mm3 04/11/2025 4:02 AM EDT [facility] Hemoglobin 12.8(L) 13.0 - 17.7 g/dL 04/11/2025 4:02 AM EDT [facility] Hematocrit 40.5 37.5 - 51.0 % 04/11/2025 4:02 AM EDT [facility] MCV 86.2 79.0 - 97.0 fL 04/11/2025 4:02 AM EDT [facility] MCH 27.2 26.6 - 33.0 pg 04/11/2025 4:02 AM EDT [facility] MCHC 31.6 31.5 - 35.7 g/dL 04/11/2025 4:02 AM EDT [facility] RDW 12.9 12.3 - 15.4 % 04/11/2025 4:02 AM EDT [facility] RDW-SD 40.5 37.0 - 54.0 fl 04/11/2025 4:02 AM EDT [facility] MPV 9.2 6.0 - 12.0 fL 04/11/2025 4:02 AM EDT [facility] Platelets 267 140 - 450 10*3/mm3 04/11/2025 4:02 AM EDT [facility] Neutrophil % 59.5 42.7 - 76.0 % 04/11/2025 4:02 AM EDT [facility] Lymphocyte % 26.3 19.6 - 45.3 % 04/11/2025 4:02 AM EDT [facility] Monocyte % 9.3 5.0 - 12.0 % 04/11/2025 4:02 AM [facility] Eosinophil % 4.1 0.3 - 6.2 % 04/11/2025 4:02 AM EDT [facility] Basophil % 0.4 0.0 - 1.5 % 04/11[facility]2025 4:[facility] Immature Grans % 0.4 0.0 - 0.5 % 04/11/2025 4:02 AM [facility] Neutrophils, Absolute 4.69 1.70 - 7.00 10*3/mm3 04/11/2025 4:02 AM [facility] Lymphocytes, Absolute 2.07 0.70 - 3.10 10*3/mm3 04/11/2025 4:02 AM [facility] Monocytes, Absolute 0.73 0.10 - 0.90 10*3/mm3 04/11/2025 4:02 AM [facility] Eosinophils, Absolute 0.32 0.00 - 0.40 10*3/mm3 04/11/2025 4:02 AM [facility] Basophils, Absolute 0.03 0.00 - 0.20 10*3/mm3 04/11/2025 4:02 AM [facility] Immature Grans, Absolute 0.03 0.00 - 0.05 10*3/mm3 04/11/2025 4:02 AM [facility] nRBC 0.0 0.0 - 0.2 /100 WBC 04/11/2025 4:02 AM [facility] Blood Venipuncture / Unknown 04/11/2025 3:40 AM EDT 04/11/2025 3:59 AM EDT Sushil Dean Jr., MD LAB BLOOD ORDERABLES Fi nal Result [facility]
[address] [place] [address], * (ABNORMAL) Comprehensive Metabolic Panel (04/11/2025 3:40 AM EDT) Only the most recent of2 resultswithin the time period is included. Glucose 108(H) 65 - 99 mg/dL 04/11/2025 4:19 AM EDT [facility] BUN 12.5 6.0 - 20.0 mg/dL 04/11/2025 4:19 AM EDT [facility] Creatinine 0.68(L) 0.76 - 1.27 mg/dL 04/11/2025 4:19 AM EDT [facility] Sodium 140 136 - 145 mmol/L 04/11/2025 4:19 AM EDT [facility] Potassium 3.8 3.5 - 5.2 mmol/L 04/11/2025 4:19 AM EDT [facility] Chloride 105 98 - 107 mmol/L 04/11/2025 4:19 AM EDT [facility] CO2 28.2 22.0 - 29.0 mmol/L 04/11/2025 4:19 AM EDT [facility] Calcium 8.2(L) 8.6 - 10.5 mg/dL 04/11/2025 4:19 AM EDT [facility] Total Protein 6.1 6.0 - 8.5 g/dL 04/11/2025 4:19 AM EDT [facility] Albumin 3.1(L) 3.5 - 5.2 g/dL 04/11/2025 4:19 AM EDT [facility] ALT (SGPT) 52(H) 1 - 41 U/L 04/11/2025 4:19 AM EDT [facility] AST (SGOT) 40 1 - 40 U/L 04/11/2025 4:19 AM EDT [facility] Alkaline Phosphatase 99 39 - 117 U/L 04/11/2025 4:19 AM EDT [facility] Total Bilirubin 0.2 0.0 - 1.2 mg/dL 04/11/2025 4:19 AM EDT [facility] Globulin 3.0 gm/dL 04/11/2025 4:19 AM EDT [facility] Comment:Calculated Result A/G Ratio 1.0 g/dL 04/11/2025 4:19 AM EDT [facility] BUN/Creatinine Ratio 18.4 7.0 - 25.0 04/11/2025 4:19 AM EDT [facility] Anion Gap 6.8 5.0 - 15.0 mmol/L 04/11/2025 4:19 AM EDT [facility] eGFR 117.5 >60.0 mL/min/1.7 3 04/11/2025 4:19 AM EDT [facility] Blood Venipuncture / Unknown 04/11/2025 3:40 AM EDT 04/11/2025 3:56 AM EDT [facility] - 04/11/2025 4:19 AM [...] race as a factor us Rosario Hill WINDOW SHADE RING COVERER LAB BLOOD ORDERABLES Final Result [facility]
[address] [id number], * Heparin Anti-Xa (04/10/2025 3:46 AM EDT) Only the most recent of13 resultswithin the time period is included. Heparin Anti-Xa (UFH) 0.35 0.30 - 0.70 IU/ml 04/10/2025 4:23 AM EDT [facility] Blood Venipuncture / Unknown 04/10/2025 3:46 AM EDT 04/10/2025 3:53 AM EDT Larisa Hamilton [facility] LAB BLOOD ORDERABLES Final R esult [facility]
[address] [place] [address], * (ABNORMAL) Basic Metabolic Panel (04/10/2025 3:46 AM EDT) Only the most recent of6 resultswithin the time period is included. [facility] Glucose 125(H) 65 - 99 mg/dL [...] - 10.5 mg/dL 04/10/2025 4:20 AM EDT [facility] [...] [facility]
[address] [place] [address], * Wound Culture - Swab, Leg, Right (04/08/2025 3:40 PM EDT) Only the most recent of3 resultswithin the time period is included. Wound Culture No growth at 3 days ALIZA 04/11/2025 10:40 AM EDT [facility] Gram Stain Few (2+) [...] Organization Address City/[facility]/ZIP Co de Phone Number [facility]
[address] [place] [address], [facility]
[address] [place] [address], [place] [phone] * Anaerobic Culture - Swab, Leg, Right (04/08/2025 3:40 PM EDT) Only the most recent of4 resultswithin the time period is included. Anaerobic Culture No anaerobes isolated at 5 days ALIZA 04/13/2025 7:24 AM EDT [facility] Swab Structure of right lower limb / Unknown 04/08/2025 3:40 PM EDT 04/08/2025 8:05 PM EDT Sushil Dean Jr., MD MICROBIOLOGY - GENERAL ORDERABLES Final Result Performing Organization Address [facility] Co de Phone Number [facility]
[address] [place] [address], * Scan Slide (04/08/2025 8:41 AM EDT) [...] Organization Address City/[facility]/ZIP Co de Phone Number [facility]
[address] [place] [address], [place] [phone] * [place] C Arm During Surgery (04/07/2025 9:32 PM EDT) Narrative SYSTEMGENERATED, DOCUMENTATION - 04/07/2025 9:38 PM EDT This procedure was auto-finalized with no dictation required. us Sushil Dean Jr., MD IMG FLUOROSCOPY ORDERAB LES Final Result * Tissue / Bone Culture - Tissue, Leg, Right (04/07/2025 9:13 PM EDT) Tissue Culture No growth at 3 days ALIZA 04/11/2025 10:36 AM EDT [facility] Gram Stain Rare (1+) WBCs seen 04/11/2025 10:36 AM EDT [facility] Gram Stain No organisms seen 04/11/2025 10:36 AM EDT [facility] Tissue Structure of right lower limb / Unknown 04/07/2025 9:13 PM EDT 04/08/2025 4:54 AM EDT us Sushil Dean Jr., MD MICROBIOLOGY - GENERAL ORDERABLES Final Result [facility]
[address] [place] [address], [facility]
[address] [place] [address], * BH AN ETT AIRWAY (04/07/2025 8:44 [...] [place] 04/07/2025 9:58 AM EDT Workstation ID: [id number] Narrative 04/07/2025 9:58 AM EDT MRI TIBIA [...] [place] 04/07/2025 9:58 AM EDT Workstation ID: [id number] Sushil Dean Jr., MD IMG MRI ORDERABLES Mary Beth l Result * Potassium (04/06/2025 7:16 PM EDT) Potassium 4.0 3.5 - 5.2 mmol/L 04/06/2025 7:53 PM EDT [facility] Blood Venipuncture / Unknown 04/06/2025 7:16 PM EDT 04/06/2025 7:35 PM EDT Jason Álvarez DO LAB BLOOD ORDERABLES Final Resul t Performing Organization Address City/[facility]/ZIP Co de Phone Number [facility]
[address] [place] [address], * CK (04/05/2025 12:15 PM EDT) Creatine Kinase 140 20 - 200 U/L 04/05/2025 1:31 PM EDT [facility] Blood Venipuncture / Unknown 04/05/2025 12:15 PM EDT 04/05/2025 1:03 PM EDT Carlton Maed MD LAB BLOOD ORDERABLES Final R esult Performing Organization Address City/[facility]/ZIP Co de Phone Number [facility]
[address] [place] [address], * (ABNORMAL) aPTT (04/05/2025 3:54 AM EDT) [...] 0.5 U/ml are 60 to 70 seconds. Sand 9D LAB BLOOD ORDERABLES Final R esult Performing Organization Address City/[facility]/ZIP Co de Phone Number [facility]
[address] [place] [address], * (ABNORMAL) Protime-INR (04/05/2025 12:18 AM EDT) Pathologist [facility] Protime 15.9(H) 12.2 - 15.3 Seconds 04/05/2025 12:53 AM EDT [facility] INR 1.19(H) 0.89 - 1.12 04/05/2025 12:53 AM EDT [facility] Blood Venipuncture / Unknown 04/05/2025 12:18 AM EDT 04/05/2025 12:37 AM EDT [employer] LAB BLOOD ORDERABLES Final R esult Performing Organization Address City/[facility]/ZIP Co de Phone Number [facility]
[address] [place] [address], * POC Creatinine (04/04/2025 2:49 PM EDT) Pathologist [facility] Creatinine 1.10 0.60 - 1.30 mg/dL 04/07/2025 7:14 PM EDT [facility] Comment:Serial Number: [id number]: [id number] Venous Blood 04/04/2025 2:49 PM EDT 04/07/2025 7:14 PM EDT Jason Álvarez DO POINT OF CARE TEST ORDERABLES Fi nal Result Performing Organization Address [facility] Co de Phone Number [facility]
[address] [place] [address], * (ABNORMAL) Sedimentation Rate (04/04/2025 2:47 PM EDT) Sed Rate 51(H) 0 - 15 mm/hr 04/04/2025 3:06 PM EDT [facility] Blood Venipuncture / Unknown 04/04/2025 2:47 PM EDT 04/04/2025 2:52 PM EDT Mario Crowley LAB BLOOD ORDERABLES Fin al Result Performing Organization Address [facility] de Phone Number [facility]
[address] [place] [address], * (ABNORMAL) C-reactive Protein (04/04/2025 2:47 PM EDT) C-Reactive Protein 8.57(H) 0.00 - 0.50 mg/dL 04/04/2025 3:26 PM EDT [facility] Blood Venipuncture / Unknown 04/04/2025 2:47 PM EDT 04/04/2025 2:52 PM EDT Mario Crowley DO LAB BLOOD ORDERABLES Fin al Result Performing Organization Address [facility] Co de Phone Number [facility]
[address] [place] [address], from Last 3 Months Additional Health Concerns [...] Of Support Discussed With: Patient Care Teams Foster Care Social Worker Relationship Specialty Start Date End Date Provider, No Known [facility] [place] [address] PCP - General 05/09/23
--- OUTSIDE RECORDS SUMMARY | 2025-04-20 09:05 | XMS_ITS | Encounter Summary ---
Author Organization Healthcare Address [address] [place] [address] Care Team Providers Care Supervisor Telephone Clerks Name Role Phone Unavailable Primary Care Provider Unavailabl e Encounter Details Date Type Department Care Team (Late st Contact Info) Description 05/17/2023 Lab Requisition [facility] [address] [place] [address] Sushil Dean MD [address] [facility] [address] [place] [address] Encounter for general adult medical examination without [...] O RDERABLES Final Result Performing Organization Address City/[facility] Co de Phone Number [facility] [address] [place] [address] * Bone Culture and Gram Stain (05/17/2023 [...] RDERABLES Final Result Performing Organization Address [facility] Co de Phone Number [facility] [address] [place] [address] documented in this encounter Visit Diagnoses Diagnosis Encounter for general adult medical examination without abnormal findings documented in this encounter
--- OUTSIDE RECORDS SUMMARY | 2025-04-20 09:05 | XMS_ITS | Encounter Summary ---
Author Organization Healthcare Address [address] [place] [address] Care Team Providers Care Tower Climber Name Role Phone Unavailable Primary Care Provider Unavailabl e Encounter Details Date Type Department Care Team (Late st Contact Info) Description 07/20/2022 Lab Requisition [facility] [address] [place] [address] Sushil Dean MD [address] [place] [address] Encounter for general adult medical examination without [...] at day 4 07/27/2022 11:32 AM EST [facility] Bone Specimen from bone / Unknown 07/20/2022 1:36 PM EST 07/20/2022 5:52 PM EST us Sushil Dean MD LAB MICROBIOLOGY - GENERAL O RDERABLES Final Result Performing Organization Address City/[facility] Co de Phone Number [facility]ALTH[facility]ARE LAB [address] [place] [address] * Bone Culture and Gram Stain (07/20/2022 1:36 PM EST) Culture No growth at day 4 2022 9:16 AM EST [facility] Gram Stain Result Rare Polymorphonuclear leukocytes 07/24/2022 9:16 AM EST [facility] Gram Stain Result No organisms seen 07/24/2022 9:16 AM EST [facility] Bone Specimen from bone / Unknown 07/20/2022 1:36 PM EST 07/20/2022 5:52 PM EST us Sushil Dean MD LAB MICROBIOLOGY - GENERAL O RDERABLES Final Result Performing Organization Address City/[facility] Co de Phone Number [facility] [address] [place] [address] documented in this encounter Visit Diagnoses Diagnosis Encounter for general adult medical examination without abnormal findings documented in this encounter
--- OUTSIDE RECORDS SUMMARY | 2025-04-20 09:05 | XMS_ITS | Encounter Summary ---
Author Organization Healthcare Address [address] [place] [address] Care Team Providers Care Central Office Operator Name Role Phone Unavailable Primary Care Provider Unavailabl e Encounter Details Date Type Department Care Team (Late st Contact Info) Description 07/20/2022 Lab Requisition [facility] [address] [place] [address] Sushil Dean MD [address] [place] [address] Encounter for general adult medical examination without [...]
--- OUTSIDE RECORDS SUMMARY | 2025-04-20 09:05 | XMS_ITS | Encounter Summary ---
Author Organization [facility] Address [address] [place] [address] Care Team Providers Care Reach Lift Truck Driver Name Role Phone Unavailable Primary Care Provider Unavailabl e Encounter Details Date Type Department Care Team (Late st Contact Info) Description 10/03/2022 Lab Requisition [facility] [address] [place] [address] Dalila Cox MD [address] [place], [place] [id number] Encounter for general adult medical examination without [...] Culture Neelima albicans(A) 10/05/2022 11:58 AM EDT [facility] Comment: This result was determined by MALDI tof Mass spectrometry. This assay was developed and its performance characteristics determined by [facility] as appropriate for clinical purposes. [...] ALIZA 0.25 ug/ml: Susceptible Neelima albicans Voriconazole ALIAZ 0.008 ug/ml: Susceptible Dalila Cox MD LAB MICROBIOLOGY - GENERAL TABBY WHYTE Edited Result - Final [facility] [address] [place] [address] documented in this encounter Visit Diagnoses Diagnosis Encounter for general adult medical examination without abnormal findings documented in this encounter
--- OUTSIDE RECORDS SUMMARY | 2025-04-20 09:05 | XMS_ITS | Patient Health Record ---
[facility] [address] [facility] [address] [place] [id number] Care Team Providers Care Entertainer & Comic Name Role Phone Zeeshan Salazar Primary Care Provider [phone] Allergies No Known Allergies Medications Medication SIG [...] W/U Status Risk Notes Problem Essential hypertension (85243676) HTN [Hypertension] (401.9) Active confirmed appears resolved Problem Hypothyroidism (85591465) Hypothyroidism NOS (244.9) Active confirmed Problem Hyperlipidemia (65529647) Hyperlipidemia (272.4) Active confirmed Problem Constipation (73382800) Constipation, unspecified constipation type (K59.00) Active confirmed Problem History of pulmonary embolism on long-term anticoagulation therapy (32495039339147166 ) Hx pulmonary embolism (Z86.711) Active confirmed Problem Long-term current use of anticoagulant (954052997) Current use of lobsterman anticoagulation (Z79.01) Active confirmed Problem Adjustment disorder with anxious mood (05090051) Adjustment disorder with anxious mood (F43.22) Active confirmed Problem History of pulmonary embolus (923960037) History of pulmonary embolus (PE) (Z86.711) Active confirmed Problem Methicillin resistant Staphylococcus aureus infection (disorder) (325673102) Infection of wound due to methicillin resistant Staphylococcus aureus (MRSA) (A49.02) Active confirmed Problem Arthritis of knee (787155382) Arthritis of knee (M17.10) Active confirmed Problem Amputated below knee (597951015) Status post below knee amputation of right lower extremity (Z89.511) Active confirmed Problem Gastroesophageal reflux disease (184886228) Gastroesophageal reflux disease, unspecified whether esophagitis present [...]
--- OUTSIDE RECORDS SUMMARY | 2025-04-20 09:05 | XMS_ITS | Encounter Summary ---
Author Organization [facility] Address [address] [place] [address] Care Team Providers Care Maintenance Supervisor Name Role Phone Provider, No Known [...] 2:25 PM EDT Cherri Grimm RN * [place] Suicide Severity Rating Scale (Screener/Recent Self-Report) Question [...] documented as of this encounter Care Teams Maintenance Supervisor Relationship Specialty Start Date End Date Provider, No Known [facility] [place] [address] PCP - General 05/09/23 documented as of this encounter
--- OUTSIDE RECORDS SUMMARY | 2025-04-20 09:05 | XMS_ITS | Clinical Summary ---
Author Organization Healthcare Address [address] [place] [address] Care Team Providers Care Tour Bus Driver/Guide Name Role Phone Unavailable Primary Care Provider [...]
== END 2025-04-20 10:30 | disposition home or self-care (01) ==
LOC: INF 09:01
PROVIDERS: PCP Nurse Practitioner Family; Visit Provider Nurse Practitioner Family
DX: L03.115 Cellulitis of right lower limb (principal); L02.415 Cutaneous abscess of right lower limb; Z89.511 Acquired absence of right leg below knee; L30.9 Dermatitis, unspecified; D68.2 Hereditary deficiency of other clotting factors; I10 Essential (primary) hypertension; E78.5 Hyperlipidemia, unspecified; F39 Unspecified mood [affective] disorder
CPT/HCPCS: 96365; J0878

== ENCOUNTER 2025-04-21 08:28 | Outpatient (CLI) | payer MEDICARE, SELFPAY ==
--- OUTSIDE RECORDS SUMMARY | 2023-10-25 12:15 | XMS_ITS ---
Author Organization [facility] Address [address] [place] [address] YVON Sykes [id number] Care Team Providers Care Enterprise Systems Administrator Name Role Phone Zeeshan Salazar Primary Care Provider Macario Burkett [phone] Allergies No Known Allergies REASON FOR VISIT check up BP Encounters Encounter Location Date Provider Diagnosis [facility] [address] [place] [address] Y[place]ON Sykes [id number] 10/25/2023 Macaroi Burkett Plan Of Treatment No Information Progress Notes * MITCHELLWonDOB: [birth year] (44 yo M)Acc No.[id number]:10/25/2023 Progress Notes Patient: Won SPANN Provider: Colleen Burkett M.D. :1980 A ge:43 Y S ex:Male Date:10/25/2023 Address:[address] [place] [address] Onel THACKER [id number] Pcp:Zeeshan Salazar Subjective: * Chief Complaints: * [...] alive, hypertension. M aternal Grand Mother: HBP, [place]. Brother with HBP. * Social History: C URRENT TOBACCO USE S moking Status: Patient does NOT smoke. C affeine: no. Alcohol: No. * Allergies: N .K.D.A. Objective: * Vitals: Assessment: Plan: * Treatment: * Images: Billing Information: * Visit Code: * Procedure Codes: * Electronic signature of Micaela Burkett MD on 04/21/2025 at 08:41 AM EDT Sign off status: Pending * Provider: Colleen Burkett M.D. Date: 0 10/25/2023 Generated for Nany jorgesnen/Elaine/Lisbethitting on: 1 08:41 AM EDT
--- OUTSIDE RECORDS SUMMARY | 2023-12-12 05:00 | XMS_ITS ---
Author Organization Ayaka Address 1210 [facility] 36 [facility] 2C [place] [phone] Care Team Providers Care Food Prep Worker Name Role Phone Zeeshan Salazar Primary Care Provider Macario Burkett [phone] REASON FOR VISIT 6 Month Check Up Encounters Encounter Location Date Provider Diagnosis [place] 1210 [facility] [address] [place] [phone] 12/12/2023 Macario Burkett Plan Of Treatment No Information Progress Notes * Won MEDRANO ZeeshanDOB: [birth year] (44 yo M)Acc No.[id number]:12/12/2023 Progress Notes Patient: Won SPANN Provider: Colleen Burkett M.D. :1980 A ge:43 Y S ex:Male Date:12/12/2023 Address:[address] [place] [address] [id number] Pcp:Zeeshan Salazar Subjective: * Chief Complaints: * 1 . 6 Month Check Up. * Medical History: Objective: * Vitals: Assessment: Plan: * Treatment: * Images: Billing Information: * Visit Code: * Procedure Codes: * Electronic signature of Micaela Burkett MD on 04/21/2025 at 08:40 AM EDT Sign off status: Pending * Provider: Colleen Burkett M.D. Date: 12/12/2023 Generated for Nany jorgensen/Elaine/Pro on: 1 08:40 AM EDT
--- OUTSIDE RECORDS SUMMARY | 2025-04-04 16:10 | XMS_ITS | Encounter Summary ---
Author Organization [facility] Address [address] [place] [address] Care Team Providers Care Supervisor Electronics Assembly Name Role Phone Provider, No Known Primary Care Provider Unavail able Reason for Visit * Reason Comments Leg Swelling * Auth/Cert Specialty Diagnoses / Procedures Referred By Contlevy t Referred To Contact Diagnoses Right BKA infection Referral ID Status Reason Start Date Expiration Date Visits Re quested Visits Authorized [id number] 1 1 Encounter Details Date Type Department Care Team (Late st Contact Info) Description 04/04/2025 4:10 PM EDT - 04/11/2025 1:58 PM EDT Hospital Encounter [address] [place] [address] Mario Crowley, [address] [place] [address] Leonora Shepherd MD [address] [address] Jason Álvarez DO [address] [address] Jadyn Richardson DO [address] [address] Cellulitis of right lower extremity (Primary Dx); Below-knee amputation of right lower extremity, initial encounter; Right BKA infection Discharge Disposition: Home or Self Care Social History Tobacco Use Types Packs/Day Years Used Date Smoking Tobacco: Never Smokeless Tobacco: Never Tobacco Cessation:Counseling Given: Not Answered Alcohol Use Standard Drinks/Week Comments Not Currently 0 (1 standard drink = 0.6 oz pur e alcohol) [facility] Utilities Answer Date Recorded In the past 12 months has th e [employer] gas, oil, or water company threatened to [...] or training? Not on file Preferred Language Mozambican 04/07/2025 Sex and Gender Information Value Date [...] 2:25 PM EDT Cherri Grimm RN * [place] Suicide Severity Rating Scale (Screener/Recent Self-Report) Question Answer Date of Assessment Author 1. Wish to be (Past 1 Month) No 025 2:25 PM EDT Cherri Garcia RN 2. Non-Specific Active Suici mikcey Thoughts (Past 1 Month) No 04/04/2025 2:25 [...] Date/Time Wound Culture - Swab, Leg, Right [[id number]] (Abnormal) (Susceptibility) Collected: 04/07/252106 Lab Status: Final [...] Units Date/Time FL C Arm During Surgery [[id number]] Resulted: 04/07/252137 Updated: 04/07/252137 Narrative: This procedure was auto-finalized with no dictation required. MRI Tibia Fibula Right With & Without Contrast [[id number]] Collected: 04/07/25 0938 Updated: 04/07/25 1001 Narrative: [...] Buenrostro 04/07/2025 9:58 AM EDT Workstation ID: [id number] MRI Tibia Fibula Right With & Without Contrast [[id number]] Collected: 04/04/252256 Updated: 04/04/252302 Narrative: MRI TIBIA [...] MD 04/04/2025 11:00 PM EDT Workstation ID: [id number] Pending Labs Order Current Status Fungus Culture [...] FLOMAX 1 capsule, Nightly Stop These Medications [facility] Digestive [facility] capsule doxycycline 100 MG tablet Commonly [...] Male) Date of 1980 Social Security Number [id number] [place] [address] [employer] Unknown Marital Status Unknown Admission Date 04/04/2025 Admission Type Emergency Admitting Provider Jadyn Richardson DO Attending Provider Jadyn Richardson DO Department, Room/Bed [address], S565/1 Discharge Date Discharge Disposition Discharge [...] Group [place] [id number] Payor Plan Address Payor Plan Phone Number Payor Plan Fax Number Effective Dates [employer] [address] [address] 08/10/2023 - None Entered [place] [address] Subscriber Name Subscriber Date Member ID WON DENNIS 1980 [id number] Emergency Contacts Boats Renter (Rel.) Home Phone Work Phone Mobile Phone Avril Dennis (Spouse) -- -- [phone] LewRobert (Relative) -- -- [phone] [facility] [address] Patient: ROOM: [facility] Won Dennis [address] [place] [address] : 1980 SSN: [id number] Sex: M PCP: Provider, No Known Emergency Contact Information Name Relation Home Work Mobile Avril Dennis Spouse [phone] Other Contacts Name Relation Home Work Mobile Robert Hackett Relative [phone] INSURANCE PAYOR PLAN [employer] # SUBSCRIBER ID Primary: Secondary: MEDICARE [id number] Admitting Diagnosis: 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] Order Date: Apr 09, 2025 Case Management Spa Coordinator Consult (Order ID: [id number]) Diagnosis: Priority: Routine Expected Date: Expiration Date: Interval: Once Count: Comments: Outpatient orders: 1. Outpatient intravenous antibiotic therapy: Daptomycin 800 mg IV daily to be supplied by [facility] 2. Home health to perform [...] INFECTIOUS DISEASE Progress Note Won Dennis 1980 [id number] Date of Consult: 04/10/2025 Admission Date: 04/04/2025 [...] which prompted him to seek treatment at [facility]. He is known to Dr. [...] wound 05/09/25. HDS, on Heparin gtt. Currently [facility] has been asked to manage [...] Location: [facility]; Service: Orthopedics; Laterality: Right; History reviewed. [...] Jr., MD, 20 mg at 04/09/25906 heparin 40005 units/250 mL (100 units/mL) in 0.45 % [...] Units Date/Time FL C Arm During Surgery [[id number]] Resulted: 04/07/252137 Updated: 04/07/252137 Narrative: This procedure was auto-finalized with no dictation required. MRI Tibia Fibula Right With & Without Contrast [[id number]] Collected: 04/07/25 0938 Updated: 04/07/25 1001 Narrative: [...] Chitra 04/07/2025 9:58 AM EDT Workstation ID: [id number] Impression: Recurrent Right BKA stump abscess/cellulitis- this [...] discussed his complex situation with Dr. Rubens Torers -Dr. Torres will see him in infectious disease follow-up I discussed his disposition with the pharmacist at [facility] today. I will sign off Outpatient orders: 1. Outpatient intravenous antibiotic therapy: Daptomycin 800 mg IV daily to be supplied by [facility] 2. Home health to perform [...] Date/Time Wound Culture - Swab, Leg, Right [[id number]] (Abnormal) (Susceptibility) Collected: 04/07/252106 Lab Status: Final [...] Row Name 04/06/25 1143 Sit-Stand Transfer Sit-Stand [place] (Transfers) modified independence -LM Comment, (Sit-Stand Transfer) Pt stood from recliner. Not holding onto walker, pt able to pull his pants up while balancing on his one leg. -LM Row Name 04/06/25 1143 Gait/Stairs (Locomotion) [place] Level (Gait) modified independence -LM Distance in [...] Nurse Physical Therapy Education Title: PT OT COMPUTATIONAL GENETICIST Therapies (Done) Topic: Physical Therapy (Done) Point: [...] Description Service Date Service Provider Modifiers Qty [id number] PT EVAL LOW COMPLEXITY 3 04/06/2025 Susan [...] mg Daily 04/05/2025 -- Route: Oral heparin 82256 units/250 mL (100 units/mL) in 0.45 % [...] -- Admin Instructions: Open Order & [facility] Electrolyte Replacement Protocol Algorithm to [...] incision check, radiographs Follow up with Sushil eDan MD April 21 vs April 22 [facility] [address], [address] [facility], [address] Please schedule at [phone] VONDA Garcia 04/11/25 08:32 EDT Cosigned by [...] Date/Time Wound Culture - Swab, Leg, Right [[id number]] (Abnormal) (Susceptibility) Collected: 04/07/252106 Lab Status: Final [...] mg Daily 04/05/2025 -- Route: Oral heparin 03884 units/250 mL (100 units/mL) in 0.45 % [...] -- Admin Instructions: Open Order & [facility] Electrolyte Replacement Protocol Algorithm to [...] -- Admin Instructions: Open Order & [facility] Electrolyte Replacement Protocol Algorithm to [...] -- Admin Instructions: Open Order & [facility] Electrolyte Replacement Protocol Algorithm to [...] Dean MD April 21 vs April 22 [facility] [address], [address] [facility] [place] [facility], [address] Please schedule at [phone] VONDA Garcia 04/10/25 09:01 EDT Cosigned by Sushil Dean Jr., MD at 04/19/2025 10:33 AM EDT Associated attestation - Sushil Dean Jr., MD - 04/19/2025 10:33 AM EDT I have reviewed this documentation and agree. * Carlton Mead MD - 04/10/2025 7:38 AM EDT Images from the original note were not included. INFECTIOUS DISEASE Progress Note Won Dennis 1980 [id number] Date of Consult: 04/10/2025 Admission Date: 04/04/2025 Requesting Provider: Evaluating Physician: Dr. Mable Mead MD. 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 He c/o swelling with erythema for several days after a new prosthesis was fitted, which prompted him to seek treatment at [facility]. He is known to Dr. [...] wound 05/09/25. HDS, on Heparin gtt. Currently [facility] has been asked to manage [...] Location: [facility]; Service: Orthopedics; Laterality: Right; History reviewed. [...] Jr., MD, 20 mg at 04/09/25906 heparin 63366 units/250 mL (100 units/mL) in 0.45 % [...] vancomycin 2750 mg/500 mL 0.9% NS IVPB ([facility]) Ordering Provider: Mario Crowley, DO [...] Units Date/Time FL C Arm During Surgery [[id number]] Resulted: 04/07/252137 Updated: 04/07/252137 Narrative: This procedure was auto-finalized with no dictation required. MRI Tibia Fibula Right With & Without Contrast [[id number]] Collected: 04/07/25 0938 Updated: 04/07/25 1001 Narrative: [...] Buenrostro 04/07/2025 9:58 AM EDT Workstation ID: [id number] Impression: Recurrent Right BKA stump abscess/cellulitis- this [...] discussed his disposition with the pharmacist at [facility] today. I will sign off Outpatient orders: 1. Outpatient intravenous antibiotic therapy: Daptomycin 800 mg IV daily to be supplied by [facility] 2. Home health to perform [...] 07:38 EDT * Yaya Hamiltonn, [facility] - 04/10/2025 7:17 AM EDT Pharmacy to [...] Date/Time Wound Culture - Swab, Leg, Right [[id number]] (Abnormal) Collected: 04/07/252106 Lab Status: Preliminary result [...] Preeti 04/09/25 * Larisa Hamilton [facility] - 04/09/2025 11:36 AM EDT Pharmacy to [...] mg Daily 04/05/2025 -- Route: Oral heparin 06335 units/250 mL (100 units/mL) in 0.45 % [...] -- Admin Instructions: Open Order & [facility] Electrolyte Replacement Protocol Algorithm to [...] -- Admin Instructions: Open Order & [facility] Electrolyte Replacement Protocol Algorithm to [...] -- Admin Instructions: Open Order & [facility] Electrolyte Replacement Protocol Algorithm to [...] in 2 weeks for incision check, radiographs [facility] [address], [address] [place] [facility], [address] Please schedule at [phone] VONDA Garcia 04/09/25 09:18 EDT Cosigned by Susihl Dean Jr., MD at 04/19/2025 10:33 AM EDT Associated attestation - Sushil Dean Jr., MD - 04/19/2025 10:33 AM EDT I have reviewed this documentation and agree. * Carlton Mead MD - 04/09/2025 8:25 AM EDT Images from the original note were not included. INFECTIOUS DISEASE Progress Note Won Dennis 1980 [id number] Date of Consult: 04/09/2025 Admission Date: 04/04/2025 [...] which prompted him to seek treatment at [facility]. He is known to Dr. [...] wound 05/09/25. HDS, on Heparin gtt. Currently [facility] has been asked to manage [...] Surgeon: Sushil Dean Jr., MD; Location: [facility]; Service: Orthopedics; Laterality: Right; PLACEMENT OF WOUND VAC Right 04/07/2025 Procedure: WOUND VACUUM ASSISTED CLOSURE; Surgeon: Sushil Dean Jr., MD; Location: [facility]; Service: Orthopedics; Laterality: Right; History reviewed. [...] MD, 20 mg at 04/08/25 0800 heparin 65685 units/250 mL (100 units/mL) in 0.45 % [...] Units Date/Time FL C Arm During Surgery [[id number]] Resulted: 04/07/252137 Updated: 04/07/252137 Narrative: This procedure was auto-finalized with no dictation required. MRI Tibia Fibula Right With & Without Contrast [[id number]] Collected: 04/07/2538 Updated: 04/07/25 1001 Narrative: MRI [...] Buenrostro 04/07/2025 9:58 AM EDT Workstation ID: [id number] Impression: Recurrent Right BKA stump abscess/cellulitis- this [...] mg IV daily to be supplied by [facility] 2. Home health to perform [...] Buenrostro 04/07/2025 9:58 AM EDT Workstation ID: [id number] I have personally reviewed the therapy plans: [...] DO 04/08/25 * Larisa Hamilton [facility] - 04/08/2025 11:48 AM EDT Pharmacy to [...] -- Admin Instructions: Open Order & [facility] Electrolyte Replacement Protocol Algorithm to [...] mg Daily 04/05/2025 -- Route: Oral heparin 93165 units/250 mL (100 units/mL) in 0.45 % [...] -- Admin Instructions: Open Order & [facility] Electrolyte Replacement Protocol Algorithm to [...] -- Admin Instructions: Open Order & [facility] Electrolyte Replacement Protocol Algorithm to [...] -- Admin Instructions: Open Order & [facility] Electrolyte Replacement Protocol Algorithm to [...] INFECTIOUS DISEASE Progress Note Won Dennis 1980 [id number] Date of Consult: 04/08/2025 Admission Date: 04/04/2025 [...] which prompted him to seek treatment at [facility]. He is known to Dr. [...] wound 05/09/25. HDS, on Heparin gtt. Currently [facility] has been asked to manage [...] Surgeon: Sushil Dean Jr., MD; Location: [facility]; Service: Orthopedics; Laterality: Right; PLACEMENT OF WOUND VAC Right 04/07/2025 Procedure: WOUND VACUUM ASSISTED CLOSURE; Surgeon: Ssuhil Dean Jr., MD; Location: [facility]; Service: Orthopedics; Laterality: Right; History reviewed. [...] Jr., MD, 20 mg at 04/07/25950 heparin 22148 units/250 mL (100 units/mL) in 0.45 % [...] Units Date/Time FL C Arm During Surgery [[id number]] Resulted: 04/07/252137 Updated: 04/07/252137 Narrative: This procedure was auto-finalized with no dictation required. MRI Tibia Fibula Right With & Without Contrast [[id number]] Collected: 04/07/2538 Updated: 04/07/25 1001 Narrative: MRI [...] Buenrostro 04/07/2025 9:58 AM EDT Workstation ID: [id number] Impression: 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 (Treated by ID in [place] Dr. Harris). Dr. Torres treated him with [...] Buenrostro 04/07/2025 9:58 AM EDT Workstation ID: [id number] I have personally reviewed the therapy plans: [...] DO 04/07/25 * Larisa Hamilton [facility] - 04/07/2025 11:56 AM EDT Pharmacy to [...] INFECTIOUS DISEASE Progress Note Won Dennis 1980 [id number] Date of Consult: 04/07/2025 Admission Date: 04/04/2025 [...] which prompted him to seek treatment at [facility]. He is known to Dr. [...] wound 05/09/25. HDS, on Heparin gtt. Currently [facility] has been asked to manage [...] Application, 1 Application, Topical, Q12H, Ayah Valentin, IT ADMINISTRATIVE ASSISTANT, 1 Application at 04/06/252101 DAPTOmycin (CUBICIN) 800 [...] Shepherd MD, 20 mg at 04/06/25899 heparin 48617 units/250 mL (100 units/mL) in 0.45 % NaCl infusion, 18 Units/kg/hr, Intravenous, Titrated, Cherri Beatty, [facility], Last Rate: 24.1 mL/hr at 04/07/258, 18 [...] With & Without Contrast - In process [[id number]] Resulted: 04/07/25828 Updated: 04/07/25828 This result has not been signed. Information might be incomplete. MRI Tibia Fibula Right With & Without Contrast [[id number]] Collected: 04/04/252256 Updated: 04/04/252302 Narrative: MRI TIBIA [...] represent a small area of phlegmonous change ([id number] image 10) measuring approximately 1.6 cm which [...] MD 04/04/2025 11:00 PM EDT Workstation ID: [id number] Impression: 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 (Treated by ID in [place] Dr. Harris). Dr. Torres treated him with [...] mg Daily 04/05/2025 -- Route: Oral heparin 89995 units/250 mL (100 units/mL) in 0.45 % [...] -- Admin Instructions: Open Order & [facility] Electrolyte Replacement Protocol Algorithm to [...] -- Admin Instructions: Open Order & [facility] Electrolyte Replacement Protocol Algorithm to [...] 06:07 EDT * Cherri Beatty [facility] - 04/06/2025 1:47 PM EDT Pharmacy to [...] MD 04/04/2025 11:00 PM EDT Workstation ID: [id number] I have personally reviewed the therapy plans: [...] mg Daily 04/05/2025 -- Route: Oral heparin 45687 units/250 mL (100 units/mL) in 0.45 % [...] -- Admin Instructions: Open Order & [facility] Electrolyte Replacement Protocol Algorithm to [...] INFECTIOUS DISEASE follow up. Won Dennis 1980 [id number] Date of Consult: 04/06/2025 Admission Date: 04/04/2025 [...] which prompted him to seek treatment at [facility]. He is known to Dr. [...] wound 05/09/25. HDS, on Heparin gtt. Currently [facility] has been asked to manage [...] 10 mg, 10 mg, Rectal, Daily PRN, Leonoar Shepherd MD budesonide-formoterol (SYMBICORT) 160-4.5 MCG/ACT inhaler [...] Application, 1 Application, Topical, Q12H, Ayah Valentin, IT ADMINISTRATIVE ASSISTANT, 1 Application at 04/06/25 0859 DAPTOmycin (CUBICIN) [...] MD, 20 mg at 04/06/25 0900 heparin 89137 units/250 mL (100 units/mL) in 0.45 % NaCl infusion, 18 Units/kg/hr, Intravenous, Titrated, Cherri Beatty [facility], Last Rate: 24.1 mL/hr at 04/06/25 1420, 18 Units/kg/hr at 04/06/25 1420 hydroCHLOROthiazide tablet 12.5 mg, 12.5 mg, Oral, Daily, Leonora Shepherd MD, 12.5 mg at 859 HYDROmorphone (DILAUDID) injection 0.5 mg, 0.5 mg, Intravenous, Q2H PRN, Leonroa Shepherd MD, 0.5 mg at 04/05/25 0036 [...] Tibia Fibula Right With & Without Contrast [[id number]] Collected: 04/04/252256 Updated: 04/04/252302 Narrative: MRI TIBIA [...] represent a small area of phlegmonous change ([id number] image 10) measuring approximately 1.6 cm which [...] MD 04/04/2025 11:00 PM EDT Workstation ID: [id number] Impression: 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 (Treated by ID in [place] Dr. Harris). Dr. Torres treated him with [...] 16:00 EDT * Cherri Beatty, [facility] - 04/05/2025 3:01 PM EDT Pharmacy to [...] New start -- [phone] ALDEN ELIGH Mary. Pt has Factor II mutation and [...] MD 04/04/2025 11:00 PM EDT Workstation ID: [id number] I have personally reviewed the therapy plans: [...] unremarkable. There is no knee joint effusion. Musculatureappears unremarkable with no evidence of focal atrophy. [...] No knee joint effusion. Electronically Signed: Leigh oJnes MD 04/04/2025 11:00 PM EDT Workstation ID: [id number] Assessment & Plan Assessment & Plan Won [...] ID Factor 2 -On Eliquis. Spoke with [facility]. Appreciate pharmacy's assistance with heparin drip [...] 4FR PICC placed by Rhoda Bonner RN [facility], tip verified by 3CG see LDA. * Sushil Dean Jr., MD - 04/05/2025 8:07 AM EDTAssociated Order(s): IP CONSULT TO ORTHOPEDIC SURGERY [facility] [address] [address] Orthopedic Consult Patient: Won Dennis Date of Admission: 04/04/2025 4:10 PM Date of : 1980 Attending Physician: Jason Álvarez DO Consulting Physician: Sushil Dean Jr, MD Chief Complaint: 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 male admitted to [facility] with 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]. He [...] was evaluated in the emergency department in [place], was discharged with instructions for follow-up. He [...] tablet by mouth Daily. 04/03/2025 Morning Lactobacillus-Inulin ([facility]) capsule Take 200 mg by mouth Daily. [...] MD 04/04/2025 11:00 PM EDT Workstation ID: [id number] Assessment: Right BKA infection 44-year-old male with [...] DISEASE CONSULT/INITIAL HOSPITAL VISIT Won Dennis 1980 [id number] Date of Consult: 04/05/2025 Admission Date: 04/04/2025 [...] which prompted him to seek treatment at [facility]. He is known to Dr. [...] wound 05/09/25. HDS, on Heparin gtt. Currently [facility] has been asked to manage [...] Leonora Shepherd MD, 40 mg at 04/04/25 3069 sennosides-docusate (PERICOLACE) 8.6-50 MG per tablet 2 [...] MD, 20 mg at 04/05/25 0916 heparin 26757 units/250 mL (100 units/mL) in 0.45 % [...] , Not Applicable, Joao PAZ Laurie, MD nitroglycerin (NITROSTAT) SL tablet 0.4 [...] 04/04/252004 Pharmacy to dose vancomycin Ordering Provider: Leonoar Shepherd MD Not Applicable Continuous PRN 04/04/25200404/09/25200304/04/251942 [...] Tibia Fibula Right With & Without Contrast [[id number]] Collected: 04/04/252256 Updated: 04/04/252302 Narrative: MRI TIBIA [...] represent a small area of phlegmonous change (mydbbe18 image 10) measuring approximately 1.6 cm which [...] MD 04/04/2025 11:00 PM EDT Workstation ID: [id number] Impression: 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 (Treated by ID in [place] Dr. Harris). Dr. Torres treated him with [...] - 04/08/2025 3:51 PM EDT [facility] OPERATIVE REPORT PATIENT NAME: Won Dennis DATE OF : 1980 PREOP DIAGNOSIS: Right Right below-knee amputation infection POSTOP DIAGNOSIS: Same. PROCEDURE: Right Right 95573: Secondary closure below-knee amputation SURGEON: Sushil Dean MD OPERATIVE TEAM: Scientific Recruiter: Susi Grullon RN Scrub Person: Mary Paredes Scrub Person Extra: Hortencia Toribio Other: Katt Gotti RN; Charis Neville RN ANESTHETIST: Anesthesiologist: Ulises Hoffman MD FAMILY MEDICINE RESIDENT: Stan Casillas CRNA Student Nurse Sand Screener: Karol Albert SRNA ANESTHESIA: Choice ESTIMATED BLOOD [...] CULTURE (Canceled) Sushil Dean Jr., MD 04/08/25 3280 Description: RIGHT LEG DEEP WOUND FOR CULTURE [...] PM EDT [facility] [address] [facility] 250 OPERATIVE REPORT PATIENT NAME: Won Dennis DATE OF : 1980 PREOP DIAGNOSIS: Right Right below knee amputation stump infection POSTOP DIAGNOSIS: Same. PROCEDURE: Right Right 95115: Incision and drainage of surgical site infection 53297: Debridement of skin, subcutaneous tissue, muscle 97271: Wound vacuum-assisted closure SURGEON: Sushil Dean MD OPERATIVE TEAM: Scientific Recruiter: Anum Sanchez RN Scrub Person: Hortencia Toribio; Gerald Ivey BLIND HOOKER: Anesthesiologist: Luci Alonso DO ANESTHESIA: General ESTIMATED [...] ago swellling of the area. seen at [facility] yesterday for CT and US, [...] this chart in the absence of a overhead cleaner. No orders to display RADIOLOGY: [x] Radiologist's [...] 04/11/2025 1:30 PM EDT Continued Stay Note [place] Patient Name: Won Dennis Today's Date: 04/11/2025 Admit Date: 04/04/2025 Plan: Home with outpatient infusion. Discharge Plan Row Name 04/11/25 1155 Plan Plan Home with outpatient infusion. Final Discharge Disposition Code 01 - home or self-care Final Note Patient discharging today. He is discharging home with outpatient infusion at [facility]. He has an appointment with [facility] at 8:00 am tomorrow. They will do PICC line dressing changes. DEBRA has spoke with Dena at [facility] today multiple times to get [...] to get IV ABX at home with [facility]; however, Medicaid lapsed on 04/08. DEBRA was unaware until this morning that Medicaid has lapsed. Patient explained that he has Medicare A and B. CM spoke with KELLEE and given themhis Medicare number [id number], she sent it to Admission. DEBRA spoke with Kerri, with [facility], and explained that he had Medicare A and B. However, it will not cover home infusion. It will be $64.00 a day out of packet. Patients can go to the Infusion center at [facility], and it will cover the cost as an outpatient. He will need to go there every day for infusion. They will be able to do the patients' PICC line dressing changes and lab work. CM called [facility] Outpatient infusion center they can accept patient and start him. He is known for their facility. The Facility will need to run it through his insurance first. CM faxed the orders over to [facility] at [phone]. CM will follow up with them tomorrow at [facility] to make sure they received the [...] Plan: Home Discharge Plan Row Name 04/09/25 8141 Plan Plan Home Patient/Family in Agreement with Plan yes Plan Comments CM spoke with patient at bedside today[facility] Patient getting PICC line [...] note were not included. Discharge Planning Assessment [facility] Patient Name: Won Dennis Today's Date: 04/07/2025 [...] family Patient/Family Anticipated Services at Transition case sealermanager trust Anticipated family or friend will provide Discharge Needs Assessment Equipment Currently Used at Home glucometer;shower chair;pulse ox;bp cuff;prosthesis;crutches Equipment Needed After Discharge none Discharge Plan Row Name 04/07/25 1144 Plan Plan Home Patient/Family in Agreement with Plan yes Plan Comments CM spoke with patient at bedside today. Patient lives with and his 5 kids in [facility]. 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 He has walker, cane, shower chair, and crutches. He requested a wheelchair for home. CM will order wheelchair through [employer]. He is not current with home health services. PCP is Dr. Jordan. Insurance is [facility] Medicaid [place]. Patient discharge plan is home with priavte transport. CM will follow for any discharge needs. Final Discharge Disposition Code 01 - home or self-care Continued Care and Services - Admitted Since 04/04/2025 No active coordination exists. Demographic Summary Row Name 04/07/25 1143 General Information Arrived From hospital Preferred Language Mozambican Functional Status Row Name 04/07/25 1143 Functional [...] - 10.80 10*3/mm3 04/11/2025 4:02 AM EDT [facility] RBC 4.70 4.14 - 5.80 10*6/mm3 04/11/2025 4:02 AM EDT [facility] Hemoglobin 12.8(L) 13.0 - 17.7 g/dL 04/11/2025 4:02 AM EDT [facility] Hematocrit 40.5 37.5 - 51.0 % 04/11/2025 4:02 AM EDT [facility] MCV 86.2 79.0 - 97.0 fL 04/11/2025 4:02 AM EDT [facility] MCH 27.2 26.6 - 33.0 pg 04/11/2025 4:02 AM EDT [facility] MCHC 31.6 31.5 - 35.7 g/dL 04/11/2025 4:02 AM EDT [facility] RDW 12.9 12.3 - 15.4 % 04/11/2025 4:02 AM EDT [facility] RDW-SD 40.5 37.0 - 54.0 fl 04/11/2025 4:02 AM EDT [facility] MPV 9.2 6.0 - 12.0 fL 04/11/2025 4:02 AM EDT [facility] Platelets 267 140 - 450 10*3/mm3 04/11/2025 4:02 AM [facility] Neutrophil % 59.5 42.7 - 76.0 % 04/11/2025 4:02 AM [facility] Lymphocyte % 26.3 19.6 - 45.3 % 04/11/2025 4:02 AM [facility] Monocyte % 9.3 5.0 - 12.0 % 04/11/2025 4:02 AM [facility] Eosinophil % 4.1 0.3 - 6.2 % 04/11/2025 4:02 AM [facility] Basophil % 0.4 0.0 - 1.5 % 04/11/2025 4:02 AM [facility] Immature Grans % 0.4 0.0 - 0.5 % 04/11/2025 4:02 AM [facility] Neutrophils, Absolute 4.69 1.70 - 7.00 10*3/mm3 04/11/2025 4:02 AM [facility] Lymphocytes, Absolute 2.07 0.70 - 3.10 10*3/mm3 04/11/2025 4:02 AM [facility] Monocytes, Absolute 0.73 0.10 - 0.90 10*3/mm3 04/11/2025 4:02 AM [facility] Eosinophils, Absolute 0.32 0.00 - 0.40 10*3/mm3 04/11/2025 4:02 AM [facility] Basophils, Absolute 0.03 0.00 - 0.20 10*3/mm3 04/11/2025 4:02 AM [facility] Immature Grans, Absolute 0.03 0.00 - 0.05 10*3/mm3 04/11/2025 4:02 AM [facility] nRBC 0.0 0.0 - 0.2 /100 WBC 04/11/2025 4:02 AM [facility] Blood Venipuncture / Unknown 04/11/2025 3:40 AM EDT 04/11/2025 3:59 AM EDT us Sushil Dean Jr., MD LAB BLOOD ORDERABLES Fi nal Result [facility]
[address] [place] [address], * (ABNORMAL) Comprehensive Metabolic Panel (04/11/2025 3:40 AM EDT) Glucose 108(H) 65 - 99 mg/dL 04/11/2025 4:19 AM EDT [facility] BUN 12.5 6.0 - 20.0 mg/dL 04/11/2025 4:19 AM EDT [facility] Creatinine 0.68(L) 0.76 - 1.27 mg/dL 04/11/2025 4:19 AM EDT [facility] Sodium 140 136 - 145 mmol/L 04/11/2025 4:19 AM EDT [facility] Potassium 3.8 3.5 - 5.2 mmol/L 04/11/2025 4:19 AM EDT [facility] Chloride 105 98 - 107 mmol/L 04/11/2025 4:19 AM EDT [facility] CO2 28.2 22.0 - 29.0 mmol/L 04/11/2025 4:19 AM EDT [facility] Calcium 8.2(L) 8.6 - 10.5 mg/dL 04/11/2025 4:19 AM EDT [facility] Total Protein 6.1 6.0 - 8.5 g/dL 04/11/2025 4:19 AM EDT [facility] Albumin 3.1(L) 3.5 - 5.2 g/dL 04/11/2025 4:19 AM EDT [facility] ALT (SGPT) 52(H) 1 - 41 U/L 04/11/2025 4:19 AM EDT [facility] AST (SGOT) 40 1 - 40 U/L 04/11/2025 4:19 AM EDT [facility] Alkaline Phosphatase 99 39 - 117 U/L 04/11/2025 4:19 AM EDT [facility] Total Bilirubin 0.2 0.0 - 1.2 mg/dL 04/11/2025 4:19 AM EDT [facility] Globulin 3.0 gm/dL 04/11/2025 4:19 AM EDT [facility] Comment:Calculated Result A/G Ratio 1.0 g/dL 04/11/2025 4:19 AM EDT [facility] BUN/Creatinine Ratio 18.4 7.0 - 25.0 04/11/2025 4:19 AM EDT [facility] Anion Gap 6.8 5.0 - 15.0 mmol/L 04/11/2025 4:19 AM EDT [facility] eGFR 117.5 >60.0 mL/min/1.7 3 04/11/2025 4:19 AM EDT [facility] Blood Venipuncture / Unknown 04/11/2025 3:40 AM EDT 04/11/2025 3:56 AM EDT [facility] - 04/11/2025 4:19 AM EDT GFR [...] Hill APRN LAB BLOOD ORDERABLES Final Result [facility]
[address] [place] [address], * (ABNORMAL) CBC Auto Differential (04/10/2025 3:46 AM EDT) [facility] WBC 9.60 3.40 - 10.80 10*3/mm3 04/10/2025 3:56 AM EDT [facility] RBC 4.67 4.14 - 5.80 10*6/mm3 04/10/2025 3:56 AM EDT [facility] Hemoglobin 12.9(L) 13.0 - 17.7 g/dL 04/10/2025 3:56 AM EDT [facility] Hematocrit 40.1 37.5 - 51.0 % 04/10/2025 3:56 AM [facility] MCV 85.9 79.0 - 97.0 fL 04/10/2025 3:[facility] MCH 27.6 26.6 - 33.0 pg 04/10/2025 3:56 AM [facility] MCHC 32.2 31.5 - 35.7 g/dL 04/10/2025 3:56 AM [facility] RDW 12.9 12.3 - 15.4 % 04/10/2025 3:56 AM [facility] RDW-SD 40.5 37.0 - 54.0 fl 04/10/2025 3:56 AM [facility] MPV 9.5 6.0 - 12.0 fL 04/10/2025 3:56 AM [facility] Platelets 227 140 - 450 10*3/mm3 04/10/2025 3:56 AM EDT [facility] Neutrophil % 59.1 42.7 - 76.0 % 04/10/2025 3:56 AM [facility] Lymphocyte % 29.0 19.6 - 45.3 % 04/10/2025 3:56 AM [facility] Monocyte % 8.1 5.0 - 12.0 % 04/10/2025 3:56 [facility] Eosinophil % 3.2 0.3 - 6.2 % 04/10/2025 3:56 AM EDT [facility] Basophil % 0.4 0.0 - 1.5 % 04/10/2025 3:56 AM EDT [facility] Immature Grans % 0.2 0.0 - 0.5 % 04/10/2025 3:56 AM EDT [facility] Neutrophils, Absolute 5.67 1.70 - 7.00 10*3/mm3 04/10/2025 3:56 AM EDT [facility] Lymphocytes, Absolute 2.78 0.70 - 3.10 10*3/mm3 04/10/2025 3:56 AM EDT [facility] Monocytes, Absolute 0.78 0.10 - 0.90 10*3/mm3 04/10/2025 3:56 AM EDT [facility] Eosinophils, Absolute 0.31 0.00 - 0.40 10*3/mm3 04/10/2025 3:56 AM EDT [facility] Basophils, Absolute 0.04 0.00 - 0.20 10*3/mm3 04/10/2025 3:56 AM EDT [facility] Immature Grans, Absolute 0.02 0.00 - 0.05 10*3/mm3 04/10/2025 3:56 AM EDT [facility] nRBC 0.0 0.0 - 0.2 /100 WBC 04/10/2025 3:56 AM EDT [facility] Blood Venipuncture / Unknown 04/10/2025 3:46 AM EDT 04/10/2025 3:53 AM EDT Jason Álvarez DO LAB BLOOD ORDERABLES Final Resul t [facility]
[address] [place] [address], * (ABNORMAL) Basic Metabolic Panel (04/10/2025 3:46 AM EDT) [facility] Glucose 125(H) 65 - 99 mg/dL 04/10/2025 4:20 AM EDT [facility] BUN 15.9 6.0 - 20.0 mg/dL 04/10/2025 4:20 AM [facility] Creatinine 0.77 0.76 - 1.27 mg/dL 04/10/2025 4:20 AM T [facility] Sodium 137 136 - 145 mmol/L 04/10/2025 4:20 AM [facility] Potassium 3.9 3.5 - 5.2 mmol/L 04/10/2025 4:20 AM EDT [facility] Chloride 102 98 - 107 mmol/L 04/10/2025 4:20 AM T [facility] CO2 26.9 22.0 - 29.0 mmol/L 04/10/2025 4:20 AM [facility] Calcium 7.9(L) 8.6 - 10.5 mg/dL 04/10/2025 4:20 AM [facility] BUN/Creatinine Ratio 20.6 7.0 - 25.0 04/10/2025 4:20 AM [facility] Anion Gap 8.1 5.0 - 15.0 mmol/L 04/10/2025 4:20 AM [facility] eGFR 113.2 >60.0 mL/min/1.7 3 04/10/2025 4:20 AM [facility] Blood Venipuncture / Unknown 04/10/2025 3:46 AM EDT 04/10/2025 3:52 AM EDT [facility] - 04/10/2025 4:20 AM EDT GFR [...] DO LAB BLOOD ORDERABLES Final Resul t [facility]
[address] [place] [address], * Heparin Anti-Xa (04/10/2025 3:46 AM EDT) Heparin Anti-Xa (UFH) 0.35 0.30 - 0.70 IU/ml 04/10/2025 4:23 AM EDT [facility] Blood Venipuncture / Unknown 04/10/2025 3:46 AM EDT 04/10/2025 3:53 AM EDT [facility] BLOOD ORDERABLES Final R esult Performing Organization Address City/[facility]/ZIP Co de Phone Number [facility]
[address] [place] [address], * Heparin Anti-Xa (04/09/2025 10:05 AM EDT) Heparin Anti-Xa (UFH) 0.36 0.30 - 0.70 IU/ml 04/09/2025 11:12 AM EDT [facility] Blood Venipuncture / Unknown 04/09/2025 10:05 AM EDT 04/09/2025 10:47 AM EDT [facility] Final R esult [facility]
[address] [place] [address], * (ABNORMAL) CBC Auto Differential (04/09/2025 4:18 AM EDT) WBC 11.00(H) 3.40 - 10.80 10*3/mm3 04/09/2025 4:50 [facility] RBC 4.70 4.14 - 5.80 10*6/mm3 04/09/2025 4:50 AM EDT [facility] Hemoglobin 13.0 13.0 - 17.7 g/dL 04/09/2025 4:50 [facility] Hematocrit 40.4 37.5 - 51.0 % 04/09/2025 4:50 AM EDT [facility] MCV 86.0 79.0 - 97.0 fL 04/09/2025 4:50 AM EDT [facility] MCH 27.7 26.6 - 33.0 pg 04/09/2025 4:50 [facility] MCHC 32.2 31.5 - 35.7 g/dL 04/09/2025 4:50 AM [facility] RDW 12.8 12.3 - 15.4 % 04/09/2025 4:50 AM [facility] RDW-SD 39.9 37.0 - 54.0 fl 04/09/2025 4:50 AM [facility] MPV 10.0 6.0 - 12.0 fL 04/09/2025 4:50 AM [facility] Platelets 211 140 - 450 10*3/mm3 04/09/2025 4:50 AM [facility] Neutrophil % 74.8 42.7 - 76.0 % 04/09/2025 4:50 AM EDT [facility] Lymphocyte % 15.4(L) 19.6 - 45.3 % 04/09/2025 4:50 AM EDT [facility] Monocyte % 8.5 5.0 - 12.0 % 04/09/2025 4:50 AM EDT [facility] Eosinophil % 0.6 0.3 - 6.2 % 04/09/2025 4:50 AM [facility] Basophil % 0.4 0.0 - 1.5 % 04/09/2025 4:50 AM EDT [facility] Immature Grans % 0.3 0.0 - 0.5 % 04/09/2025 4:50 AM EDT [facility] Neutrophils, Absolute 8.23(H) 1.70 - 7.00 10*3/mm3 04/09/2025 4:50 AM EDT [facility] Lymphocytes, Absolute 1.69 0.70 - 3.10 10*3/mm3 04/09/2025 4:50 AM EDT [facility] Monocytes, Absolute 0.94(H) 0.10 - 0.90 10*3/mm3 04/09/2025 4:50 AM EDT [facility] Eosinophils, Absolute 0.07 0.00 - 0.40 10*3/mm3 04/09/2025 4:50 AM EDT [facility] Basophils, Absolute 0.04 0.00 - 0.20 10*3/mm3 04/09/2025 4:50 AM EDT [facility] Immature Grans, Absolute 0.03 0.00 - 0.05 10*3/mm3 04/09/2025 4:50 AM EDT [facility] nRBC 0.0 0.0 - 0.2 /100 WBC 04/09/2025 4:50 AM EDT [facility] Blood Venipuncture / Unknown 04/09/2025 4:18 AM EDT 04/09/2025 4:31 AM EDT Sushil Dean Jr., MD LAB BLOOD ORDERABLES Fi nal Result [facility]
[address] [place] [address], * Heparin Anti-Xa (04/09/2025 4:18 AM EDT) Heparin Anti-Xa (UFH) 0.41 0.30 - 0.70 IU/ml 04/09/2025 4:53 AM EDT [facility] Blood Venipuncture / Unknown 04/09/2025 4:18 AM EDT 04/09/2025 4:31 AM EDT Una Perla PharmD LAB BLOOD ORDERABLES Final R esult [facility]
[address] [place] [address], * (ABNORMAL) Basic Metabolic Panel (04/09/2025 4:18 AM EDT) Pathologist [facility] Glucose 147(H) 65 - 99 mg/dL 04/09/2025 5:33 AM EDT [facility] BUN 23.0(H) 6.0 - 20.0 mg/dL 04/09/2025 5:33 AM EDT [facility] Creatinine 1.15 0.76 - 1.27 mg/dL 04/09/2025 5:33 AM EDT [facility] Sodium 135(L) 136 - 145 mmol/L 04/09/2025 5:33 AM EDT [facility] Potassium 4.2 3.5 - 5.2 mmol/L 04/09/2025 5:33 AM EDT [facility] Chloride 100 98 - 107 mmol/L 04/09/2025 5:33 AM EDT [facility] CO2 26.0 22.0 - 29.0 mmol/L 04/09/2025 5:33 AM EDT [facility] Calcium 8.2(L) 8.6 - 10.5 mg/dL 04/09/2025 5:33 AM EDT [facility] BUN/Creatinine Ratio 20.0 7.0 - 25.0 04/09/2025 5:33 AM EDT [facility] Anion Gap 9.0 5.0 - 15.0 mmol/L 04/09/2025 5:33 AM EDT [facility] eGFR 80.5 >60.0 mL/min/1.7 3 04/09/2025 5:33 AM EDT [facility] Blood Venipuncture / Unknown 04/09/2025 4:18 AM EDT 04/09/2025 4:29 AM EDT Narrative [facility] - 04/09/2025 5:33 AM [...] ORDERABLES Fi nal Result Performing Organization Address [facility] Co de Phone Number [facility]
[address] [place] [address], * Wound Culture - Swab, Leg, Right (04/08/2025 3:40 PM EDT) Wound Culture No growth at 3 days ALIZA 04/11/2025 10:40 AM EDT [facility] Gram Stain Few (2+) WBCs seen 04/11/2025 10:40 AM EDT [facility] Gram Stain No organisms seen 04/11/2025 10:40 AM EDT [facility] Swab Structure of right lower limb / Unknown 04/08/2025 3:40 PM EDT 04/08/2025 8:05 PM EDT Sushil Dean Jr., MD MICROBIOLOGY - GENERAL ORDERABLES Final Result Performing Organization Address City/[facility]/ZIP Co de Phone Number [facility]
[address] [place] [address], [facility]
[address] [place] [address], * Anaerobic Culture - Swab, Leg, Right (04/08/2025 3:40 PM EDT) Pathologist [facility] Anaerobic Culture No anaerobes isolated at 5 days ALIZA 04/13/2025 7:24 AM EDT [facility] Swab Structure of right lower limb / Unknown 04/08/2025 3:40 PM EDT 04/08/2025 8:05 PM EDT Sushil Dean Jr., MD MICROBIOLOGY - GENERAL ORDERABLES Final Result Performing Organization Address City/[facility] Co de Phone Number [facility]
[address] [place] [address], [place] [phone] * Scan Slide (04/08/2025 8:41 AM EDT) Pathologist [facility] RBC Morphology Normal Normal 04/08/2025 11:02 AM EDT [facility] WBC Morphology Normal Normal 04/08/2025 11:02 AM EDT [facility] Platelet Estimate Adequate Normal 04/08/2025 11:02 AM EDT [facility] Clumped Platelets Present None Seen 04/08/2025 11:02 AM EDT [facility] Blood Venipuncture / Unknown 04/08/2025 8:41 AM EDT 04/08/2025 9:10 AM EDT Una LundbergD LAB BLOOD ORDERABLES Final R esult [facility]
[address] [place] [address], [place] [phone] * (ABNORMAL) CBC Auto Differential (04/08/2025 8:41 AM EDT) Pathologist [facility] WBC 10.07 3.40 - 10.80 10*3/mm3 04/08/2025 11:02 AM EDT [facility] RBC 5.01 4.14 - 5.80 10*6/mm3 04/08/2025 11:02 AM [facility] Hemoglobin 14.0 13.0 - 17.7 g/dL 04/08/2025 11:02 AM [facility] Hematocrit 42.7 37.5 - 51.0 % 04/08/2025 11:02 AM [facility] MCV 85.2 79.0 - 97.0 fL 04/08/2025 11:02 AM [facility] MCH 27.9 26.6 - 33.0 pg 04/08/2025 11:02 AM [facility] MCHC 32.8 31.5 - 35.7 g/dL 04/08/2025 11:02 AM [facility] RDW 12.6 12.3 - 15.4 % 04/08/2025 11:02 AM [facility] RDW-SD 38.9 37.0 - 54.0 fl 04/08/2025 11:02 AM [facility] MPV 11.0 6.0 - 12.0 fL 04/08/2025 11:02 AM [facility] Platelets 118(L) 140 - 450 10*3/mm3 04/08/2025 11:02 AM [facility] Neutrophil % 85.1(H) 42.7 - 76.0 % 04/08/2025 11:02 AM [facility] Lymphocyte % 9.3(L) 19.6 - 45.3 % 04/08/2025 11:02 AM [facility] Monocyte % 4.6(L) 5.0 - 12.0 % 04/08/2025 11:02 AM [facility] Eosinophil % 0.3 0.3 - 6.2 % 04/08/2025 11:02 AM [facility] Basophil % 0.2 0.0 - 1.5 % 04/08/2025 11:02 AM [facility] Immature Grans % 0.5 0.0 - 0.5 % 04/08/2025 11:02 AM [facility] Neutrophils, Absolute 8.57(H) 1.70 - 7.00 10*3/mm3 04/08/2025 11:02 AM EDT [facility] Lymphocytes, Absolute 0.94 0.70 - 3.10 10*3/mm3 04/08/2025 11:02 AM EDT [facility] Monocytes, Absolute 0.46 0.10 - 0.90 10*3/mm3 04/08/2025 11:02 AM EDT [facility] Eosinophils, Absolute 0.03 0.00 - 0.40 10*3/mm3 04/08/2025 11:02 AM EDT [facility] Basophils, Absolute 0.02 0.00 - 0.20 10*3/mm3 04/08/2025 11:02 AM EDT [facility] Immature Grans, Absolute 0.05 0.00 - 0.05 10*3/mm3 04/08/2025 11:02 AM EDT [facility] nRBC 0.0 0.0 - 0.2 /100 WBC 04/08/2025 11:02 AM EDT [facility] Blood Venipuncture / Unknown 04/08/2025 8:41 AM EDT 04/08/2025 9:10 AM EDT Una Perla PharmD LAB BLOOD ORDERABLES Final R esult [facility]
[address] [place] [address], * (ABNORMAL) Basic Metabolic Panel (04/08/2025 8:41 AM EDT) Glucose 125(H) 65 - 99 mg/dL 04/08/2025 9:51 AM EDT [facility] BUN 13.2 6.0 - 20.0 mg/dL 04/08/2025 9:51 AM EDT [facility] Creatinine 0.69(L) 0.76 - 1.27 mg/dL 04/08/2025 9:51 AM EDT [facility] Sodium 136 136 - 145 mmol/L 04/08/2025 9:51 AM EDT [facility] Potassium 4.6 3.5 - 5.2 mmol/L 04/08/2025 9:51 AM EDT [facility] Chloride 102 98 - 107 mmol/L 04/08/2025 9:51 AM EDT [facility] CO2 23.5 22.0 - 29.0 mmol/L 04/08/2025 9:51 AM EDT [facility] Calcium 8.4(L) 8.6 - 10.5 mg/dL 04/08/2025 9:51 AM EDT [facility] BUN/Creatinine Ratio 19.1 7.0 - 25.0 04/08/2025 9:51 AM EDT [facility] Anion Gap 10.5 5.0 - 15.0 mmol/L 04/08/2025 9:51 AM EDT [facility] eGFR 117.0 >60.0 mL/min/1.7 3 04/08/2025 9:51 AM T [facility] Blood Venipuncture / Unknown 04/08/2025 8:41 AM EDT 04/08/2025 9:09 AM EDT [facility] - 04/08/2025 9:51 AM EDT GFR [...] Jr., MD LAB BLOOD ORDERABLES nal Result [facility]
[id number] [place] [address], * Heparin Anti-Xa (04/08/2025 8:41 AM EDT) Heparin Anti-Xa (UFH) 0.33 0.30 - 0.70 IU/ml 04/08/2025 9:40 AM EDT [facility] Blood Venipuncture / Unknown 04/08/2025 8:41 AM EDT 04/08/2025 9:10 AM EDT Sushil Dean Jr., MD LAB BLOOD ORDERABLES Fi nal Result [facility]
[id number] [place] [address], * FL C Arm During Surgery (04/07/2025 9:32 PM EDT) Narrative SYSTEMGENERATED, DOCUMENTATION - 04/07/2025 9:38 PM EDT This procedure was auto-finalized with no dictation required. Sushil Dean Jr., MD IMG FLUOROSCOPY ORDERAB LES Final Result * Wound Culture - Swab, Leg, Right (04/07/2025 9:14 PM EDT) Wound Culture No growth at 3 days ALIZA 04/11/2025 10:40 AM EDT [facility] Gram Stain Occasional WBCs seen 04/11/2025 10:40 AM EDT [facility] Gram Stain No organisms seen 04/11/2025 10:40 AM EDT [facility] Swab Structure of right lower limb / Unknown Collection / Unknown 04/07/2025 9:14 PM EDT 04/08/2025 4:36 AM EDT Sushil Dean Jr., MD MICROBIOLOGY - GENERAL ORDERABLES Final Result [facility]
[address] [place] [address], [facility]
[id number] [place] [address], * Anaerobic Culture - Swab, Leg, Right (04/07/2025 9:14 PM EDT) Anaerobic Culture No anaerobes isolated at 5 days ALIZA 04/13/2025 7:21 AM EDT [facility] Swab Structure of right lower limb / Unknown Collection / Unknown 04/07/2025 9:14 PM EDT 04/08/2025 4:36 AM EDT Sushil Dean Jr., MD MICROBIOLOGY - GENERAL ORDERABLES Final Result Performing Organization Address City/[facility]/ZIP Co de Phone Number [facility]
[address] [place] [address], * Anaerobic Culture - Tissue, Leg (04/07/2025 9:13 PM EDT) Anaerobic Culture No anaerobes isolated at 5 days ALIZA 04/13/2025 7:21 AM EDT [facility] Tissue Lower limb structure / Unknown Collection / Unknown 04/07/2025 9:13 PM EDT 04/08/2025 4:54 AM EDT Jason Álvarez DO MICROBIOLOGY - GENERAL ORDERABLE S Final Result [facility]
[address] [place] [address], * Tissue / Bone Culture - Tissue, Leg, Right (04/07/2025 9:13 PM EDT) Tissue Culture No growth at 3 days ALIZA 04/11/2025 10:36 AM EDT [facility] Gram Stain Rare (1+) WBCs seen 04/11/2025 10:36 AM EDT [facility] Gram Stain No organisms seen 04/11/2025 10:36 AM EDT [facility] Tissue Structure of right lower limb / Unknown 04/07/2025 9:13 PM EDT 04/08/2025 4:54 AM EDT Sushil Dean Jr., MD MICROBIOLOGY - GENERAL ORDERABLES Final Result [facility]
[address] [place] [address], [place] [phone] [facility]
[address] [place] [address], [place] [phone] * (ABNORMAL) Wound Culture - Swab, Leg, Right (04/07/2025 9:07 PM EDT) Wound Culture Light growth (2+) Staphylococcus aureus, MRSA(A) ALIZA 04/10/2025 10:38 AM EDT [facility] Comment: Methicillin resistant Staphylococcus aureus, Patient may be an isolation risk. Gram Stain Few (2+) WBCs seen 04/10/2025 10:38 AM EDT [facility] Gram Stain No organisms seen 10:38 AM EDT [facility] Swab Structure of right [...] MD MICROBIOLOGY - GENERAL ORDERABLES Final Result [facility]
[address] [place] [address], [facility]
[address] [place] [address], * Anaerobic Culture - Swab, Leg, Right (04/07/2025 9:07 PM EDT) Pathologist [facility] Anaerobic Culture No anaerobes isolated at 5 days ALIZA 04/13/2025 7:21 AM EDT [facility] Swab Structure of right lower limb / Unknown Collection / Unknown 04/07/2025 9:07 PM EDT 04/08/2025 4:36 AM EDT Sushil Dean Jr., MD MICROBIOLOGY - GENERAL ORDERABLES Final Result Performing Organization Address [facility] Co de Phone Number [facility]
[address] [place] [address], * Heparin Anti-Xa (04/07/2025 9:10 AM EDT) Pathologist [facility] Heparin Anti-Xa (UFH) 0.30 0.30 - 0.70 IU/ml 04/07/2025 10:12 AM EDT [facility] Blood Venipuncture / Unknown 04/07/2025 9:10 AM EDT 04/07/2025 9:38 AM EDT Una LundbergD LAB BLOOD ORDERABLES Final R esult Performing Organization Address City/[facility] Co de Phone Number [facility]
[address] [place] [address], * (ABNORMAL) CBC Auto Differential (04/07/2025 9:10 AM EDT) WBC 8.63 3.40 - 10.80 10*3/mm3 04/07/2025 9:50 AM EDT [facility] RBC 5.23 4.14 - 5.80 10*6/mm3 04/07/2025 9:[facility] Hemoglobin 14.7 13.0 - 17.7 g/dL 04/07/2025 9:50 [facility] Hematocrit 44.8 37.5 - 51.0 % 04/07/2025 9:50 [facility] MCV 85.7 79.0 - 97.0 fL 04/07/2025 9:50 AM EDT [facility] MCH 28.1 26.6 - 33.0 pg 04/07/2025 9:50 [facility] MCHC 32.8 31.5 - 35.7 g/dL 04/07/2025 9:50 [facility] RDW 12.8 12.3 - 15.4 % 04/07/2025 9:50 AM [facility] RDW-SD 39.9 37.0 - 54.0 fl 04/07/2025 9:50 AM [facility] MPV 10.8 6.0 - 12.0 fL 04/07/2025 9:50 AM [facility] Platelets 149 140 - 450 10*3/mm3 04/07/2025 9:50 [facility] Neutrophil % 66.7 42.7 - 76.0 % 04/07/2025 9:50 AM [facility] Lymphocyte % 20.5 19.6 - 45.3 % 04/07/2025 9:50 [facility] Monocyte % 9.8 5.0 - 12.0 % 04/07/2025 9:50 AM EDT [facility] Eosinophil % 2.1 0.3 - 6.2 % 04/07/2025 9:50 AM EDT [facility] Basophil % 0.3 0.0 - 1.5 % 04/07/2025 9:50 [facility] Immature Grans % 0.6(H) 0.0 - 0.5 % 04/07/2025 9:50 AM EDT [facility] Neutrophils, Absolute 5.75 1.70 - 7.00 10*3/mm3 04/07/2025 9:50 AM EDT [facility] Lymphocytes, Absolute 1.77 0.70 - 3.10 10*3/mm3 04/07/2025 9:50 AM EDT [facility] Monocytes, Absolute 0.85 0.10 - 0.90 10*3/mm3 04/07/2025 9:50 AM EDT [facility] Eosinophils, Absolute 0.18 0.00 - 0.40 10*3/mm3 04/07/2025 9:50 AM EDT [facility] Basophils, Absolute 0.03 0.00 - 0.20 10*3/mm3 04/07/2025 9:50 AM EDT [facility] Immature Grans, Absolute 0.05 0.00 - 0.05 10*3/mm3 04/07/2025 9:50 AM EDT [facility] nRBC 0.0 0.0 - 0.2 /100 WBC 04/07/2025 9:50 AM EDT [facility] Blood Venipuncture / Unknown 04/07/2025 9:10 AM EDT 04/07/2025 9:38 AM EDT us Jason Álvarez DO LAB BLOOD ORDERABLES Final Resul t [facility]
[address] [place] [address], * (ABNORMAL) Basic Metabolic Panel (04/07/2025 9:10 AM EDT) Glucose 112(H) 65 - 99 mg/dL 04/07/2025 10:19 AM EDT [facility] BUN 13.1 6.0 - 20.0 mg/dL 04/07/2025 10:19 AM EDT [facility] Creatinine 0.77 0.76 - 1.27 mg/dL 04/07/2025 10:19 AM EDT [facility] Sodium 139 136 - 145 mmol/L 04/07/2025 10:19 AM EDT [facility] Potassium 4.2 3.5 - 5.2 mmol/L 04/07/2025 10:19 AM EDT [facility] Comment:Specimen hemolyzed. Result may be falsely elevated. Chloride 105 98 - 107 mmol/L 04/07/2025 10:19 AM EDT [facility] CO2 24.8 22.0 - 29.0 mmol/L 04/07/2025 10:19 AM EDT [facility] Calcium 8.6 8.6 - 10.5 mg/dL 04/07/2025 10:19 AM T [facility] BUN/Creatinine Ratio 17.0 7.0 - 25.0 04/07/2025 10:19 AM EDT [facility] Anion Gap 9.2 5.0 - 15.0 mmol/L 04/07/2025 10:19 AM EDT [facility] eGFR 113.2 >60.0 mL/min/1.7 3 04/07/2025 10:19 AM T [facility] Blood Venipuncture / Unknown 04/07/2025 9:10 AM EDT 04/07/2025 9:38 AM EDT Narrative [facility] - 04/07/2025 10:19 AM [...] DO LAB BLOOD ORDERABLES Final Resul t PSYCHIATRIC
[address] [id number], * MRI Tibia Fibula Right With & [...] [place] 04/07/2025 9:58 AM EDT Workstation ID: [id number] Narrative 04/07/2025 9:58 AM EDT MRI TIBIA [...] [place] 04/07/2025 9:58 AM EDT Workstation ID: [id number] us Sushil Dean Jr., MD [facility] MRI ORDERABLES Mary Beth l Result * Heparin Anti-Xa (04/07/2025 1:42 AM EDT) Heparin Anti-Xa (UFH) 0.38 0.30 - 0.70 IU/ml 04/07/2025 2:14 AM EDT [facility] Blood Venipuncture / Unknown 04/07/2025 1:42 AM EDT 04/07/2025 1:54 AM EDT Chelsie Navarretesapna [facility] LAB BLOOD ORDERABLES Final R esult [facility]
[address] [place] [address], * Heparin Anti-Xa (04/06/2025 7:16 PM EDT) Pathologist [facility] Heparin Anti-Xa (UFH) 0.33 0.30 - 0.70 IU/ml 04/06/2025 7:50 PM EDT [facility] Blood Venipuncture / Unknown 04/06/2025 7:16 PM EDT 04/06/2025 7:35 PM EDT Cherri Beatty [facility] LAB BLOOD ORDERABLES Final Res ult Performing Organization Address City/[facility]/ZIP Co de Phone Number [facility]
[address] [place] [address], * Potassium (04/06/2025 7:16 PM EDT) Pathologist [facility] Potassium 4.0 3.5 - 5.2 mmol/L 04/06/2025 7:53 PM EDT [facility] Blood Venipuncture / Unknown 04/06/2025 7:16 PM EDT 04/06/2025 7:35 PM EDT Jason Álvarez DO LAB BLOOD ORDERABLES Final Resul t [facility]
[address] [place] [address], * (ABNORMAL) Heparin Anti-Xa (04/06/2025 12:36 PM EDT) Heparin Anti-Xa (UFH) 0.24(L) 0.30 - 0.70 IU/ml 04/06/2025 1:23 PM EDT [facility] Blood Venipuncture / Unknown 04/06/2025 12:36 PM EDT 04/06/2025 1:07 PM EDT Una Perla PharmD LAB BLOOD ORDERABLES Final R esult [facility]
[address] [place] [address], * (ABNORMAL) Heparin Anti-Xa (04/06/2025 3:42 AM EDT) [facility] Heparin Anti-Xa (UFH) 0.25(L) 0.30 - 0.70 IU/ml 04/06/2025 5:30 AM EDT [facility] Blood Venipuncture / Unknown 04/06/2025 3:42 AM EDT 04/06/2025 4:59 AM EDT Chelsie Turpin [facility] LAB BLOOD ORDERABLES Final R esult [facility]
[address] [place] [address], * (ABNORMAL) Basic Metabolic Panel (04/06/2025 3:42 AM EDT) [facility] Glucose 94 65 - 99 mg/dL 04/06/2025 5:59 AM EDT [facility] BUN 12.8 6.0 - 20.0 mg/dL 04/06/2025 5:59 AM EDT [facility] Creatinine 0.80 0.76 - 1.27 mg/dL 04/06/2025 5:59 AM EDT [facility] Sodium 138 136 - 145 mmol/L 04/06/2025 5:59 AM EDT [facility] Potassium 3.6 3.5 - 5.2 mmol/L 04/06/2025 5:59 AM EDT [facility] Chloride 103 98 - 107 mmol/L 04/06/2025 5:59 AM EDT [facility] CO2 24.2 22.0 - 29.0 mmol/L 04/06/2025 5:59 AM EDT [facility] Calcium 8.0(L) 8.6 - 10.5 mg/dL 04/06/2025 5:59 AM EDT [facility] BUN/Creatinine Ratio 16.0 7.0 - 25.0 04/06/2025 5:59 AM EDT [facility] Anion Gap 10.8 5.0 - 15.0 mmol/L 04/06/2025 5:59 AM EDT [facility] eGFR 111.9 >60.0 mL/min/1.7 3 04/06/2025 5:59 AM EDT [facility] Blood Venipuncture / Unknown 04/06/2025 3:42 AM EDT 04/06/2025 5:20 AM EDT Narrative [facility] - 04/06/2025 5:59 AM [...] DO LAB BLOOD ORDERABLES Final Resul t [facility]
[address] [place] [address], * (ABNORMAL) CBC Auto Differential (04/06/2025 3:41 AM EDT) WBC 10.86(H) 3.40 - 10.80 10*3/mm3 04/06/2025 5:04 AM EDT [facility] RBC 5.08 4.14 - 5.80 10*6/mm3 04/06/2025 5:04 AM EDT [facility] Hemoglobin 13.9 13.0 - 17.7 g/dL 04/06/2025 5:04 AM EDT [facility] Hematocrit 43.7 37.5 - 51.0 % 04/06/2025 5:04 AM EDT [facility] MCV 86.0 79.0 - 97.0 fL 04/06/2025 5:04 AM EDT [facility] MCH 27.4 26.6 - 33.0 pg 04/06/2025 5:04 AM EDT [facility] MCHC 31.8 31.5 - 35.7 g/dL 04/06/2025 5:04 AM EDT [facility] RDW 12.8 12.3 - 15.4 % 04/06/2025 5:04 AM EDT [facility] RDW-SD 40.0 37.0 - 54.0 fl 04/06/2025 5:04 AM EDT [facility] MPV 11.7 6.0 - 12.0 fL 04/06/2025 5:04 AM EDT [facility] Platelets 115(L) 140 - 450 10*3/mm3 04/06/2025 5:04 AM EDT [facility] Neutrophil % 65.3 42.7 - 76.0 % 04/06/2025 5:04 AM EDT [facility] Lymphocyte % 20.5 19.6 - 45.3 % 04/06/2025 5:04 AM EDT [facility] Monocyte % 11.8 5.0 - 12.0 % 04/06/2025 5:04 AM EDT [facility] Eosinophil % 1.8 0.3 - 6.2 % 04/06/2025 5:04 AM EDT [facility] Basophil % 0.3 0.0 - 1.5 % 04/06/2025 5:04 AM EDT [facility] Immature Grans % 0.3 0.0 - 0.5 % 04/06/2025 5:04 AM EDT [facility] Neutrophils, Absolute 7.09(H) 1.70 - 7.00 10*3/mm3 04/06/2025 5:04 AM EDT [facility] Lymphocytes, Absolute 2.23 0.70 - 3.10 10*3/mm3 04/06/2025 5:04 AM EDT [facility] Monocytes, Absolute 1.28(H) 0.10 - 0.90 10*3/mm3 04/06/2025 5:04 AM EDT [facility] Eosinophils, Absolute 0.20 0.00 - 0.40 10*3/mm3 04/06/2025 5:04 AM EDT [facility] Basophils, Absolute 0.03 0.00 - 0.20 10*3/mm3 04/06/2025 5:04 AM EDT [facility] Immature Grans, Absolute 0.03 0.00 - 0.05 10*3/mm3 04/06/2025 5:04 AM EDT [facility] nRBC 0.0 0.0 - 0.2 /100 WBC 04/06/2025 5:04 AM EDT [facility] Blood Venipuncture / Unknown 04/06/2025 3:41 AM EDT 04/06/2025 4:58 AM EDT us Jason Álvarez DO LAB BLOOD ORDERABLES Final Resul t [facility]
[address] [place] [address], * Heparin Anti-Xa (04/05/2025 8:43 PM EDT) Heparin Anti-Xa (UFH) 0.38 0.30 - 0.70 IU/ml 04/05/2025 9:09 PM EDT [facility] Blood Venipuncture / Unknown 04/05/2025 8:43 PM EDT 04/05/2025 8:55 PM EDT Cherri Beatty [facility] LAB BLOOD ORDERABLES Final Res ult Performing Organization Address [facility]/ZIP Co de Phone Number [facility]
[address] [place] [address], * CK (04/05/2025 12:15 PM EDT) Creatine Kinase 140 20 - 200 U/L 04/05/2025 1:31 PM EDT [facility] Blood Venipuncture / Unknown 04/05/2025 12:15 PM EDT 04/05/2025 1:03 PM EDT Carlton Mead MD LAB BLOOD ORDERABLES Final R esult Performing Organization Address [facility]/ZIP Co de Phone Number [facility]
[address] [place] [address], * (ABNORMAL) Heparin Anti-Xa (04/05/2025 12:15 PM EDT) Heparin Anti-Xa (UFH) 0.17(L) 0.30 - 0.70 IU/ml 04/05/2025 1:21 PM EDT [facility] Blood Venipuncture / Unknown 04/05/2025 12:15 PM EDT 04/05/2025 1:04 PM EDT Una LundbergD LAB BLOOD ORDERABLES Final R esult [facility]
[address] [place] [address], * (ABNORMAL) aPTT (04/05/2025 3:54 AM EDT) [facility] PTT 35.3(L) 60.0 - 90.0 seconds 04/05/2025 4:31 AM EDT [facility] Blood Venipuncture / Unknown 04/05/2025 3:54 AM EDT 04/05/2025 4:15 AM EDT Narrative [facility] - 04/05/2025 4:31 AM EDT PTT = The equivalent PTT values for the therapeutic range of heparin levels at 0.3 to 0.5 U/ml are 60 to 70 seconds. Una Perla PharmD LAB BLOOD ORDERABLES Final R esult Performing Organization Address [facility] Co de Phone Number [facility]
[address] [place] [address], * Heparin Anti-Xa (04/05/2025 3:54 AM EDT) [facility] Heparin Anti-Xa (UFH) 0.30 0.30 - 0.70 IU/ml 04/05/2025 4:32 AM EDT [facility] Blood Venipuncture / Unknown 04/05/2025 3:54 AM EDT 04/05/2025 4:15 AM EDT Wanderio PharmD LAB BLOOD ORDERABLES Final R esult Performing Organization Address [facility] de Phone Number [facility]
[address] [place] [address], * (ABNORMAL) CBC Auto Differential (04/05/2025 3:54 AM EDT) [facility] WBC 11.18(H) 3.40 - 10.80 10*3/mm3 04/05/2025 4:20 AM EDT [facility] RBC 5.00 4.14 - 5.80 10*6/mm3 04/05/2025 4:20 AM EDT [facility] Hemoglobin 13.9 13.0 - 17.7 g/dL 04/05/2025 4:20 AM EDT [facility] Hematocrit 42.4 37.5 - 51.0 % 04/05/2025 4:20 AM EDT [facility] MCV 84.8 79.0 - 97.0 fL 04/05/2025 4:20 AM EDT [facility] MCH 27.8 26.6 - 33.0 pg 04/05/2025 4:20 [facility] MCHC 32.8 31.5 - 35.7 g/dL 04/05/2025 4:20 AM [facility] RDW 12.9 12.3 - 15.4 % 04/05/2025 4:20 AM [facility] RDW-SD 39.7 37.0 - 54.0 fl 04/05/2025 4:20 AM [facility] MPV 10.2 6.0 - 12.0 fL 04/05/2025 4:20 AM [facility] Platelets 160 140 - 450 10*3/mm3 04/05/2025 4:20 AM [facility] Neutrophil % 73.5 42.7 - 76.0 % 04/05/2025 4:20 AM EDT [facility] Lymphocyte % 14.0(L) 19.6 - 45.3 % 04/05/2025 4:20 AM EDT [facility] Monocyte % 11.0 5.0 - 12.0 % 04/05/2025 4:20 AM [facility] Eosinophil % 0.8 0.3 - 6.2 % 04/05/2025 4:20 AM EDT [facility] Basophil % 0.3 0.0 - 1.5 % 04/05/2025 4:20 AM EDT [facility] Immature Grans % 0.4 0.0 - 0.5 % 04/05/2025 4:20 AM EDT [facility] Neutrophils, Absolute 8.23(H) 1.70 - 7.00 10*3/mm3 04/05/2025 4:20 AM EDT [facility] Lymphocytes, Absolute 1.56 0.70 - 3.10 10*3/mm3 04/05/2025 4:20 AM EDT [facility] Monocytes, Absolute 1.23(H) 0.10 - 0.90 10*3/mm3 04/05/2025 4:20 AM EDT [facility] Eosinophils, Absolute 0.09 0.00 - 0.40 10*3/mm3 04/05/2025 4:20 AM EDT [facility] Basophils, Absolute 0.03 0.00 - 0.20 10*3/mm3 04/05/2025 4:20 AM EDT [facility] Immature Grans, Absolute 0.04 0.00 - 0.05 10*3/mm3 04/05/2025 4:20 AM EDT [facility] nRBC 0.0 0.0 - 0.2 /100 WBC 04/05/2025 4:20 AM EDT [facility] Blood Venipuncture / Unknown 04/05/2025 3:54 AM EDT 04/05/2025 4:16 AM EDT Una Perla PharmD LAB BLOOD ORDERABLES Final R esult [facility]
[address] [place] [address], * (ABNORMAL) Basic Metabolic Panel (04/05/2025 3:54 AM EDT) [facility] Glucose 152(H) 65 - 99 mg/dL 04/05/2025 4:40 AM EDT [facility] BUN 17.3 6.0 - 20.0 mg/dL 04/05/2025 4:40 AM [facility] Creatinine 0.92 0.76 - 1.27 mg/dL 04/05/2025 4:40 AM EDT [facility] Sodium 136 136 - 145 mmol/L 04/05/2025 4:40 AM T [facility] Potassium 3.9 3.5 - 5.2 mmol/L 04/05/2025 4:40 AM EDT [facility] Chloride 103 98 - 107 mmol/L 04/05/2025 4:40 AM EDT [facility] CO2 24.0 22.0 - 29.0 mmol/L 04/05/2025 4:40 AM T [facility] Calcium 7.8(L) 8.6 - 10.5 mg/dL 04/05/2025 4:40 AM [facility] BUN/Creatinine Ratio 18.8 7.0 - 25.0 04/05/2025 4:40 AM [facility] Anion Gap 9.0 5.0 - 15.0 mmol/L 04/05/2025 4:40 AM [facility] eGFR 105.2 >60.0 mL/min/1.7 3 04/05/2025 4:40 AM [facility] Blood Venipuncture / Unknown 04/05/2025 3:54 AM EDT 04/05/2025 4:15 AM EDT [facility] - 04/05/2025 4:40 AM EDT GFR [...] ORDERABLES Final Re sult Performing Organization Address [facility] Co de Phone Number [facility]
[address] [place] [address], * (ABNORMAL) aPTT (04/05/2025 12:18 AM EDT) PTT 33.6(L) 60.0 - 90.0 seconds 04/05/2025 12:53 AM EDT [facility] Blood Venipuncture / Unknown 04/05/2025 12:18 AM EDT 04/05/2025 12:37 AM EDT Narrative [facility] - 04/05/2025 12:53 AM EDT PTT = The equivalent PTT values for the therapeutic range of heparin levels at 0.3 to 0.5 U/ml are 60 to 70 seconds. Una LundbergD LAB BLOOD ORDERABLES Final R esult Performing Organization Address [facility] Co de Phone Number [facility]
[address] [place] [address], * (ABNORMAL) Protime-INR (04/05/2025 12:18 AM EDT) Protime 15.9(H) 12.2 - 15.3 Seconds 04/05/2025 12:53 AM EDT [facility] INR 1.19(H) 0.89 - 1.12 04/05/2025 12:53 AM EDT [facility] Blood Venipuncture / Unknown 04/05/2025 12:18 AM EDT 04/05/2025 12:37 AM EDT Una Perla PharmD LAB BLOOD ORDERABLES Final R esult Performing Organization Address [facility] Co de Phone Number [facility]
[address] [place] [address], * Heparin Anti-Xa (04/05/2025 12:18 AM EDT) Heparin Anti-Xa (UFH) 0.39 0.30 - 0.70 IU/ml 04/05/2025 12:54 AM EDT [facility] Blood Venipuncture / Unknown 04/05/2025 12:18 AM EDT 04/05/2025 12:37 AM EDT Una Wheeleroy PharmD LAB BLOOD ORDERABLES Final R esult [facility]
[address] [place] [address], * MRI Tibia Fibula Right With & [...] MD 04/04/2025 11:00 PM EDT Workstation ID: [id number] Narrative 04/04/2025 11:00 PM EDT MRI TIBIA [...] MD 04/04/2025 11:00 PM EDT Workstation ID: [id number] us Leonora Shepherd MD IMG MRI ORDERABLES Final Resu lt * POC Creatinine (04/04/2025 2:49 PM EDT) Pathologist [facility] Creatinine 1.10 0.60 - 1.30 mg/dL 04/07/2025 7:14 PM EDT [facility] Comment:Serial Number: [id number] Venous Blood 04/04/2025 2:49 PM EDT 04/07/2025 7:14 PM EDT Jason Álvarez DO POINT OF CARE TEST ORDERABLES Fi nal Result [facility]
[address] [place] [address], * (ABNORMAL) CBC Auto Differential (04/04/2025 2:47 PM EDT) [facility] WBC 12.72(H) 3.40 - 10.80 10*3/mm3 04/04/2025 2:56 PM EDT [facility] RBC 5.64 4.14 - 5.80 10*6/mm3 04/04/2025 2:56 PM EDT [facility] Hemoglobin 15.3 13.0 - 17.7 g/dL 04/04/2025 2:56 PM EDT [facility] Hematocrit 47.9 37.5 - 51.0 % 04/04/2025 2:56 PM EDT [facility] MCV 84.9 79.0 - 97.0 fL 04/04/2025 2:56 PM EDT [facility] MCH 27.1 26.6 - 33.0 pg 04/04/2025 2:56 PM EDT [facility] MCHC 31.9 31.5 - 35.7 g/dL 04/04/2025 2:56 PM EDT [facility] RDW 13.1 12.3 - 15.4 % 04/04/2025 2:56 PM EDT [facility] RDW-SD 40.3 37.0 - 54.0 fl 04/04/2025 2:56 PM EDT [facility] MPV 9.4 6.0 - 12.0 fL 04/04/2025 2:56 PM EDT [facility] Platelets 232 140 - 450 10*3/mm3 04/04/2025 2:56 PM EDT [facility] Neutrophil % 74.9 42.7 - 76.0 % 04/04/2025 2:56 PM EDT [facility] Lymphocyte % 13.1(L) 19.6 - 45.3 % 04/04/2025 2:56 PM EDT [facility] Monocyte % 11.2 5.0 - 12.0 % 04/04/2025 2:56 PM EDT [facility] Eosinophil % 0.4 0.3 - 6.2 % 04/04/2025 2:56 PM EDT [facility] Basophil % 0.2 0.0 - 1.5 % 04/04/2025 2:56 PM EDT [facility] Immature Grans % 0.2 0.0 - 0.5 % 04/04/2025 2:56 PM EDT [facility] Neutrophils, Absolute 9.52(H) 1.70 - 7.00 10*3/mm3 04/04/2025 2:56 PM EDT [facility] Lymphocytes, Absolute 1.66 0.70 - 3.10 10*3/mm3 04/04/2025 2:56 PM EDT [facility] Monocytes, Absolute 1.43(H) 0.10 - 0.90 10*3/mm3 04/04/2025 2:56 PM EDT [facility] Eosinophils, Absolute 0.05 0.00 - 0.40 10*3/mm3 04/04/2025 2:56 PM EDT [facility] Basophils, Absolute 0.03 0.00 - 0.20 10*3/mm3 04/04/2025 2:56 PM EDT [facility] Immature Grans, Absolute 0.03 0.00 - 0.05 10*3/mm3 04/04/2025 2:56 PM EDT [facility] nRBC 0.0 0.0 - 0.2 /100 WBC 04/04/2025 2:56 PM EDT [facility] Blood Venipuncture / Unknown 04/04/2025 2:47 PM EDT 04/04/2025 2:52 PM EDT [facility] BLOOD ORDERABLES Fin al Result Performing Organization Address City/[facility]/ZIP Co de Phone Number [facility]
[address] [place] [address], * (ABNORMAL) C-reactive Protein (04/04/2025 2:47 PM EDT) C-Reactive Protein 8.57(H) 0.00 - 0.50 mg/dL 04/04/2025 3:26 PM EDT [facility] Blood Venipuncture / Unknown 04/04/2025 2:47 PM EDT 04/04/2025 2:52 PM EDT [facility] BLOOD ORDERABLES Fin al Result Performing Organization Address City/[facility] Co de Phone Number [facility]
[address] [place] [address], * (ABNORMAL) Sedimentation Rate (04/04/2025 2:47 PM EDT) Sed Rate 51(H) 0 - 15 mm/hr 04/04/2025 3:06 PM EDT [facility] Blood Venipuncture / Unknown 04/04/2025 2:47 PM EDT 04/04/2025 2:52 PM EDT Mario Ortiz [facility] BLOOD ORDERABLES Fin al Result [facility]
[id number] [place] [address], * Comprehensive Metabolic Panel (04/04/2025 2:47 PM EDT) [facility] Glucose 90 65 - 99 mg/dL 04/04/2025 3:26 PM EDT [facility] BUN 18.3 6.0 - 20.0 mg/dL 04/04/2025 3:26 PM EDT [facility] Creatinine 0.94 0.76 - 1.27 mg/dL 04/04/2025 3:26 PM EDT [facility] Sodium 136 136 - 145 mmol/L 04/04/2025 3:26 PM EDT [facility] Potassium 3.8 3.5 - 5.2 mmol/L 04/04/2025 3:26 PM EDT [facility] Chloride 100 98 - 107 mmol/L 04/04/2025 3:26 PM EDT [facility] CO2 25.3 22.0 - 29.0 mmol/L 04/04/2025 3:26 PM EDT [facility] Calcium 8.6 8.6 - 10.5 mg/dL 04/04/2025 3:26 PM EDT [facility] Total Protein 7.3 6.0 - 8.5 g/dL 04/04/2025 3:26 PM EDT [facility] Albumin 4.1 3.5 - 5.2 g/dL 04/04/2025 3:26 PM EDT [facility] ALT (SGPT) 26 1 - 41 U/L 04/04/2025 3:26 PM EDT [facility] AST (SGOT) 25 1 - 40 U/L 04/04/2025 3:26 PM EDT [facility] Alkaline Phosphatase 106 39 - 117 U/L 04/04/2025 3:26 PM EDT [facility] Total Bilirubin 1.0 0.0 - 1.2 mg/dL 04/04/2025 3:26 PM EDT [facility] Globulin 3.2 gm/dL 04/04/2025 3:26 PM EDT [facility] Comment:Calculated Result A/G Ratio 1.3 g/dL 04/04/2025 3:26 PM EDT [facility] BUN/Creatinine Ratio 19.5 7.0 - 25.0 04/04/2025 3:26 PM EDT [facility] Anion Gap 10.7 5.0 - 15.0 mmol/L 04/04/2025 3:26 PM EDT [facility] eGFR 102.5 >60.0 mL/min/1.7 3 04/04/2025 3:26 PM EDT [facility] Blood Venipuncture / Unknown 04/04/2025 2:47 PM EDT 04/04/2025 2:52 PM EDT Narrative [facility] - 04/04/2025 3:26 PM [...] DO LAB BLOOD ORDERABLES Fin al Result [facility]
[id number] [place] [address], documented in this encounter Visit Diagnoses Diagnosis [...] 04/05/2025 3:33 PM EDT 2,000 Units heparin 59528 units/250 mL (100 units/mL) in 0.45 % [...] BPA Driven Protocol Open Order & [facility] Electrolyte Replacement Protocol Algorithm to [...] BPA Driven Protocol Open Order [facility] Electrolyte Replacement Protocol Algorithm to [...] full anticoagulation 1111 (Given - Provider: Shirley Hart, LU)2030 (Given [...] disposal. 0831 (Given - Provider: Amber Salazar, EDUCATIONAL TECHNOLOGY COORDINATOR)1943 (Given - Provider: Anahy Marcelino, EDUCATIONAL TECHNOLOGY COORDINATOR)2129 (Canceled Entry - Provider: Anahy Marcelino EDUCATIONAL TECHNOLOGY COORDINATOR - Comment: previously given) 0837 (Given - Provider: Amber Salazar RRT)2006 (Given - Provider: Loree Reese, EDUCATIONAL TECHNOLOGY COORDINATOR)2129 (Canceled Entry - Provider: Loree Reese RRT) [...] Every 12 Hours Scheduled, First dose on Mon04/05/25 at 1245, For 7 days, Apply to [...] (New Bag - Provider: Shirley Hart RN) 906 (New Bag - Provider: Shirley Hart RN) [...] drug alert 09 (Given - Provider: Shirley Hart RN) 905 (Given - Provider: Shirley Hart RN) 100 [...] RN)2026 (Given - Provider: Alberto Dillon, LU) 09 [...] Continuous Medication Order 04/09/2025 04/10/2025 04/11/2025 heparin 26406 units/250 mL (100 units/mL) in 0.45 % [...] Given: See Alt - Provider: Shirley Hart, RN) acetaminophen (TYLENOL) tablet 500 mg(Linked Group [...] RN) 0906 (Given - Provider: Shirley Hart, UL)1508 (Given - Provider: Shirley Hart, RN) bisacodyl [...] Rosenberg, LU)0614 (Given - Provider: Bob Rosenberg, LU)1006 (Given - Provider: Shirley Hart RN)1220 (Given - Provider: Shirley Hart, RN)1438 (Given - Provider: Shirley Hart, RN)1628 (Given - Provider: Shirley Hart, LU)1815 (Given - Provider: Shirley Hart, RN)2033 (Given - Provider: Alberto Dillon, RN)2245 (Given - Provider: Alberto Dillon, RN) 0109 (Given - Provider: Alberto Dillon, RN)0655 (Given - Provider: Alberto Dillon, LU)1414 (Given - Provider: Shirley Hart, LU)2124 (Given - Provider: Alberto Dillon, LU) 1003 (Given - Provider: Marguerite Wakefield RN) [...] BPA Driven Protocol Open Order [facility] Electrolyte Replacement Protocol Algorithm to [...] documented as of this encounter Care Teams Supervisor Electronics Assembly Relationship Specialty Start Date End Date Provider, [place] [address] PCP - General 05/09/23 documented as of this encounter
--- OUTSIDE RECORDS SUMMARY | 2025-04-07 18:00 | XMS_ITS | Encounter Summary ---
[facility] Address [address] [place] [address] Care Team Providers Care Vegetable Farming Supervisor Name Role Phone Provider, No Known Primary Care Provider Unavail able Reason for Visit * Reason Comments Leg Swelling * Auth/Cert Specialty Diagnoses / Procedures Referred By Contac t Referred To Contact Diagnoses Right BKA infection Referral ID Status Reason Start Date Expiration Date Visits Re quested Visits Authorized [id number] 1 1 Encounter Details Date Type Department Care Team (Late st Contact Info) Description 04/07/2025 6:00 PM EDT - 04/07/2025 6:52 PM EDT Surgery [facility] OR [address] [place] [address] Sushil Dean Jr., MD [address] [place] [address] [address] [id number] LEG DEBRIDEMENT, IRRIGATION Social History Tobacco Use Types Packs/Day Years Used Date Smoking Tobacco: Never Smokeless Tobacco: Never Tobacco Cessation:Counseling Given: Not Answered Alcohol Use Standard Drinks/Week Comments Not Currently 0 (1 standard drink = 0.6 oz pur e alcohol) [facility] Utilities Answer Date Recorded In the past 12 months has [employer] electric, gas, oil, or water company threatened [...] or training? Not on file Preferred Language Eritrean 04/07/2025 Sex and Gender Information Value Date [...] 2:25 PM EDT Cherri Grimm RN * [place] Suicide Severity Rating Scale (Screener/Recent Self-Report) Question [...] from the original note were not included. [facility] Medicine Services DISCHARGE SUMMARY Patient Name: Won [...] Date/Time Wound Culture - Swab, Leg, Right [[id number]] (Abnormal) (Susceptibility) Collected: 04/07/252106 Lab Status: Final [...] Units Date/Time FL C Arm During Surgery [[id number]] Resulted: 04/07/252137 Updated: 04/07/252137 Narrative: This procedure was auto-finalized with no dictation required. MRI Tibia Fibula Right With & Without Contrast [[id number]] Collected: 04/07/25 0938 Updated: 04/07/25 1001 Narrative: [...] Buenrostro 04/07/2025 9:58 AM EDT Workstation ID: [id number] MRI Tibia Fibula Right With & Without Contrast [[id number]] Collected: 04/04/252256 Updated: 04/04/252302 Narrative: MRI TIBIA [...] represent a small area of phlegmonous change ([id number] image 10) measuring approximately 1.6 cm which [...] MD 04/04/2025 11:00 PM EDT Workstation ID: [id number] Pending Labs Order Current Status Fungus Culture [...] Male) Date of 1980 Social Security Number [id number] [place] [address] [place] [address] Adventism Unknown Marital Status Unknown Admission Date 04/04/2025 Admission Type Emergency Admitting Provider Jadyn Richardson DO Attending Provider Jadyn Richardson DO Department, Room/Bed [facility] 5G, S565/1 Discharge Date Discharge Disposition Discharge Destination Attending Provider: Jadyn Richardson DO Allergies: Ceftin [Cefuroxime], Keflex [Cephalexin], Latex Isolation: None Infection: MRSA (05/11/23) Code Status: CPR Ht: 180.3 cm (71 ) Wt: 134 kg (295 lb) Admission Cmt: None 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 Insurance as of 04/04/2025 Primary Coverage Payor Plan Insurance Group Employer/Plan Group [place] [id number] Payor Plan Address Payor Plan Phone Number Payor Plan Fax Number Effective Dates [employer] [address] [address] 08/10/2023 - None Entered [facility] [address] Subscriber Name Subscriber Date Member ID WON DENNIS 1980 [id number] Emergency Contacts Healthcare Facility Administrator (Rel.) Home Phone Work Phone Mobile Phone Avril Dennis (Spouse) -- -- [phone] Robert Hackett (Relative) -- -- [phone] [facility] 5G [address] [facility] [address] Patient: ROOM: [facility] Won Dennis [address] [place] [address] : 1980 SSN: [id number] Sex: M PCP: Provider, No Known Emergency Contact Information Name Relation Home Work Mobile Avril Dennis Spouse [phone] Other Contacts Name Relation Home Work Mobile Robert Hackett Relative [phone] INSURANCE PAYOR PLAN GROUP # SUBSCRIBER ID Primary: Secondary: MEDICARE [place] [id number] Admitting Diagnosis: 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] Order Date: Apr 09, 2025 Case Management Graphotype Operator Consult (Order ID: [id number]) Diagnosis: Priority: Routine Expected Date: Expiration Date: [...] INFECTIOUS DISEASE Progress Note Won Dennis 1980 [id number] Date of Consult: 04/10/2025 Admission Date: 04/04/2025 [...] Jr., MD, 20 mg at 04/09/25906 heparin 78623 units/250 mL (100 units/mL) in 0.45 % [...] vancomycin 2750 mg/500 mL 0.9% NS IVPB ([facility]) Ordering Provider: Mario Crowley, DO [...] Units Date/Time FL C Arm During Surgery [[id number]] Resulted: 04/07/252137 Updated: 04/07/252137 Narrative: This procedure was auto-finalized with no dictation required. MRI Tibia Fibula Right With & Without Contrast [[id number]] Collected: 04/07/2538 Updated: 04/07/25 1001 Narrative: MRI [...] Buenrostro 04/07/2025 9:58 AM EDT Workstation ID: [id number] Impression: Recurrent Right BKA stump abscess/cellulitis- this [...] disposition with the pharmacist at [facility] today. I will sign off Outpatient orders: 1. Outpatient intravenous antibiotic therapy: Daptomycin 800 mg IV daily to be supplied by [facility] 2. Home health to perform weekly PICC [...] Date/Time Wound Culture - Swab, Leg, Right [[id number]] (Abnormal) (Susceptibility) Collected: 04/07/252106 Lab Status: Final [...] Row Name 04/06/25 1143 Sit-Stand Transfer Sit-Stand [place] (Transfers) modified independence - Comment, (Sit-Stand Transfer) Pt stood from recliner. Not holding onto walker, pt able to pull his pants up while balancing on his one leg. -LM Row Name 04/06/25 1143 Gait/Stairs (Locomotion) [place] Level (Gait) modified independence - Distance in [...] Motion bilateral lower extremity ROM WFL -LM [facility] Name 04/06/25 1145 Strength Comprehensive (MMT) General Manual Muscle Testing (MMT) Assessment no strength deficits identified BLEs -LM [facility] Name 04/06/25 1145 Balance Balance Assessment [...] Physical Therapist Goals/Plan No documentation. Clinical Impression [facility] 04/06/25 1146 Pain Pretreatment Pain Rating 0/10 - no pain -LM Posttreatment Pain Rating 0/10 - no pain -LM [facility] 04/06/25 1146 Plan of Care Review Plan of Care Reviewed With patient -LM Outcome Evaluation PT evaluation completed. Pt demonstrated independence with all mobility including ambulating 100 feet using rw - no unsteadiness noted. Pt reports he feels at baseline and doesn't think he needs skilled PT while here. Recommend home at d/c. PT signing off. -LM [facility] Name 04/06/25 1146 Therapy Assessment/Plan (PT) Criteria for Skilled Interventions Met (PT) no;no problems identified which require skilled intervention -LM Therapy Frequency (PT) evaluation only -LM Predicted Duration of Therapy Intervention (PT) Eval Only -LM [facility] Name 04/06/25 1146 Vital Signs Pretreatment Heart Rate (beats/min) 86 -LM Posttreatment Heart Rate (beats/min) 96 -LM Pre SpO2 (%) 95 -LM O2 Delivery Pre Treatment room air -LM Post SpO2 (%) 96 -LM O2 Delivery Post Treatment room air -LM Pre Patient Position Sitting -LM Post Patient Position Sitting -LM [facility] Name 04/06/25 1146 Positioning and Restraints [...] Nurse Physical Therapy Education Title: PT OT SUPERINTENDENT RENTING MANAGING Therapies (Done) Topic: Physical Therapy (Done) Point: Mobility training (Done) Learning Progress Summary Patient Acceptance, E, VU,DU by at 04/06/2025 1147 Point: Precautions (Done) Learning Progress Summary Patient Acceptance, E, VU,DU by at 04/06/2025 1147 User Cabrera Initials Effective Dates Name Provider Type [facility] 01/24/25 - Susan Cavazos, PT Physical [...] Description Service Date Service Provider Modifiers Qty [id number] PT EVAL LOW COMPLEXITY 3 04/06/2025 Susan [...] mg Daily 04/05/2025 -- Route: Oral heparin 31527 units/250 mL (100 units/mL) in 0.45 % [...] 22 [facility] [address], [address] [facility], [address] Please schedule at [phone] VONDA Garcia 04/11/25 08:32 EDT Cosigned by Sushil Dean Jr., MD at 04/19/2025 10:33 AM EDT Associated attestation - Sushil Dean Jr., MD - 04/19/2025 10:33 AM EDT I have reviewed this documentation and agree. * Rosario Hill APRN - 04/10/2025 1:24 PM EDT Images from the original note were not included. [facility] Services PROGRESS NOTE Patient Name: Won [...] Date/Time Wound Culture - Swab, Leg, Right [[id number]] (Abnormal) (Susceptibility) Collected: 04/07/252106 Lab Status: Final [...] mg Daily 04/05/2025 -- Route: Oral heparin 90408 units/250 mL (100 units/mL) in 0.45 % [...] 22 [facility] [address], [address] [facility], [address] Please schedule at [phone] VONDA Garcia 04/10/25 09:01 EDT Cosigned by Sushil Dean Jr., MD at 04/19/2025 10:33 AM EDT Associated attestation - Sushil Dean Jr., MD - 04/19/2025 10:33 AM EDT I have reviewed this documentation and agree. * Carlton Mead MD - 04/10/2025 7:38 AM EDT Images from the original note were not included. INFECTIOUS DISEASE Progress Note Won Dennis 1980 [id number] Date of Consult: 04/10/2025 Admission Date: 04/04/2025 [...] IRRIGATION; Surgeon: Sushil Dean Jr., MD; Location: [facility]; Service: Orthopedics; Laterality: Right; PLACEMENT OF WOUND VAC Right 04/07/2025 Procedure: WOUND VACUUM ASSISTED CLOSURE; Surgeon: Sushil Dean Jr., MD; Location: [facility] OR; Service: Orthopedics; Laterality: Right; WOUND CLOSURE [...] Jr., MD, 20 mg at 04/09/25906 heparin 93369 units/250 mL (100 units/mL) in 0.45 % [...] % flush 20 mL, 20 mL, Intravenous, PRAmbre, Carlton Mead MD sodium chloride 0.9 % [...] Units Date/Time FL C Arm During Surgery [[id number]] Resulted: 04/07/252137 Updated: 04/07/252137 Narrative: This procedure was auto-finalized with no dictation required. MRI Tibia Fibula Right With & Without Contrast [[id number]] Collected: 04/07/25937 Updated: 04/07/25 100 Narrative: MRI [...] Buenrostro 04/07/2025 9:58 AM EDT Workstation ID: [id number] Impression: Recurrent Right BKA stump abscess/cellulitis- this [...] disposition with the pharmacist at [facility] today. I will sign off Outpatient orders: 1. Outpatient intravenous antibiotic therapy: Daptomycin 800 mg IV daily to be supplied by [facility] 2. Home health to perform weekly PICC [...] 04/10/2025 07:38 EDT * Larisa Hamilton [facility] - 04/10/2025 7:17 AM EDT Pharmacy to [...] from the original note were not included. [facility] Services PROGRESS NOTE Patient Name: Won [...] Date/Time Wound Culture - Swab, Leg, Right [[id number]] (Abnormal) Collected: 04/07/252106 Lab Status: Preliminary result [...] Álvarez DO 04/09/25 * Larisa Hamilton [facility] - 04/09/2025 11:36 AM EDT Pharmacy to [...] -- Admin Instructions: Open Order & [facility] Electrolyte Replacement Protocol Algorithm to [...] mg Daily 04/05/2025 -- Route: Oral heparin 15121 units/250 mL (100 units/mL) in 0.45 % [...] -- Admin Instructions: Open Order & [facility] Electrolyte Replacement Protocol Algorithm to [...] radiographs [facility] [address], [address] [facility], [address] Please schedule at [phone] VONDA Garcia 04/09/25 09:18 EDT Cosigned by Sushil Dean Jr., MD at 04/19/2025 10:33 AM EDT Associated attestation - Sushil Dean Jr., MD - 04/19/2025 10:33 AM EDT I have reviewed this documentation and agree. * Carlton Mead MD - 04/09/2025 8:25 AM EDT Images from the original note were not included. INFECTIOUS DISEASE Progress Note Won Dennis 1980 [id number] Date of Consult: 04/09/2025 Admission Date: 04/04/2025 [...] Surgeon: Sushil Dean Jr., MD; [facility]; Service: Orthopedics; Laterality: Right; PLACEMENT OF WOUND VAC Right 04/07/2025 Procedure: WOUND VACUUM ASSISTED CLOSURE; Surgeon: Sushil Dean Jr., MD; Location: [facility] OR; Service: Orthopedics; Laterality: Right; [...] MD, 20 mg at 04/08/25 0800 heparin 80768 units/250 mL (100 units/mL) in 0.45 % [...] Units Date/Time FL C Arm During Surgery [[id number]] Resulted: 04/07/252137 Updated: 04/07/252137 Narrative: This procedure was auto-finalized with no dictation required. MRI Tibia Fibula Right With & Without Contrast [[id number]] Collected: 04/07/25 0938 Updated: 04/07/25 1001 Narrative: [...] Chitra 04/07/2025 9:58 AM EDT Workstation ID: [id number] Impression: Recurrent Right BKA stump abscess/cellulitis- this [...] from the original note were not included. [facility] Services PROGRESS NOTE Patient Name: Won [...] Buenrostro 04/07/2025 9:58 AM EDT Workstation ID: [id number] I have personally reviewed the therapy plans: [...] Álvarez, DO 04/08/25 * Hamilton, Larisa, [facility] - 04/08/2025 11:48 AM EDT Pharmacy to [...] -- Admin Instructions: Open Order & [facility] Electrolyte Replacement Protocol Algorithm to [...] mg Daily 04/05/2025 -- Route: Oral heparin 74766 units/250 mL (100 units/mL) in 0.45 % [...] INFECTIOUS DISEASE Progress Note Won Dennis 1980 [id number] Date of Consult: 04/08/2025 Admission Date: 04/04/2025 [...] Sushil Dean Jr., MD; Location: [facility] OR; Service: Orthopedics; Laterality: Right; PLACEMENT OF WOUND VAC Right 04/07/2025 Procedure: WOUND VACUUM ASSISTED CLOSURE; Surgeon: Sushil Dean Jr., MD; Location: [facility] OR; Service: Orthopedics; Laterality: Right; [...] Oral, Q6H PRN, 500 mg at 04/06/25 8974 OR acetaminophen (TYLENOL) 160 MG/5ML oral solution [...] Jr., MD, 20 mg at 04/07/25950 heparin 13666 units/250 mL (100 units/mL) in 0.45 % [...] 0.4 mg, 0.4 mg, Oral, Nightly, Sushil Dena Jr., MD, 0.4 mg at 04/06/252100 valsartan [...] 0.9 % 50 mL IVPB Ordering Provider: Carlotn Mead MD 8 mg/kg ?? 98.8 kg [...] vancomycin 2750 mg/500 mL 0.9% NS IVPB ([facility]) Ordering Provider: Mario Crowley, DO [...] Units Date/Time FL C Arm During Surgery [[id number]] Resulted: 04/07/252137 Updated: 04/07/252137 Narrative: This procedure was auto-finalized with no dictation required. MRI Tibia Fibula Right With & Without Contrast [[id number]] Collected: 04/07/25 0938 Updated: 04/07/25 1001 Narrative: [...] Buenrostro 04/07/2025 9:58 AM EDT Workstation ID: [id number] Impression: 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 (Treated by ID in [place] Dr. Harris). Dr. Torrse treated him with very prolonged intravenousantibiotic therapy [...] from the original note were not included. [facility] Services PROGRESS NOTE Patient Name: Won [...] Buenrostro 04/07/2025 9:58 AM EDT Workstation ID: [id number] I have personally reviewed the therapy plans: [...] DO Preeti 04/07/25 * Larisa Hamilton, [facility] - 04/07/2025 11:56 AM EDT Pharmacy to [...] not included. INFECTIOUS DISEASE Progress Note oWn Dennsi 1980 [id number] Date of Consult: 04/07/2025 Admission Date: 04/04/2025 [...] MD, 20 mg at 04/06/25 0900 heparin 93491 units/250 mL (100 units/mL) in 0.45 % NaCl infusion, 18 Units/kg/hr, Intravenous, Titrated, Cherri Beatty, [facility], Last Rate: 24.1 mL/hr at 04/07/258, 18 [...] With & Without Contrast - In process [[id number]] Resulted: 04/07/25828 Updated: 04/07/25828 This result has not been signed. Information might be incomplete. MRI Tibia Fibula Right With & Without Contrast [[id number]] Collected: 04/04/252256 Updated: 04/04/253 Narrative: MRI TIBIA [...] represent a small area of phlegmonous change ([id number] image 10) measuring approximately 1.6 cm which [...] MD 04/04/2025 11:00 PM EDT Workstation ID: [id number] Impression: 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 (Treated by ID in [place] Dr. Harris). Dr. Torres treated him with [...] -- Admin Instructions: Open Order & [facility] Electrolyte Replacement Protocol Algorithm to [...] mg Daily 04/05/2025 -- Route: Oral heparin 21599 units/250 mL (100 units/mL) in 0.45 % [...] -- Admin Instructions: Open Order & [facility] Electrolyte Replacement Protocol Algorithm to [...] Cherri Beatty [facility] - 04/06/2025 1:47 PM EDT Pharmacy to [...] from the original note were not included. [facility] PROGRESS NOTE Patient Name: Won [...] MD 04/04/2025 11:00 PM EDT Workstation ID: [id number] I have personally reviewed the therapy plans: [...] mg Daily 04/05/2025 -- Route: Oral heparin 65691 units/250 mL (100 units/mL) in 0.45 % [...] -- Admin Instructions: Open Order & [facility] Electrolyte Replacement Protocol Algorithm to [...] -- Admin Instructions: Open Order & [facility] Electrolyte Replacement Protocol Algorithm to [...] INFECTIOUS DISEASE follow up. Won Dennis 1980 [id number] Date of Consult: 04/06/2025 Admission Date: 04/04/2025 [...] MD, 20 mg at 04/06/25 0900 heparin 37731 units/250 mL (100 units/mL) in 0.45 % NaCl infusion, 18 Units/kg/hr, Intravenous, Titrated, Cherri Beatty [facility], Last Rate: 24.1 mL/hr at 04/06/25 1420, [...] Tibia Fibula Right With & Without Contrast [[id number]] Collected: 04/04/252256 Updated: 04/04/252302 Narrative: MRI TIBIA [...] represent a small area of phlegmonous change ([id number] image 10) measuring approximately 1.6 cm which [...] MD 04/04/2025 11:00 PM EDT Workstation ID: [id number] Impression: 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 (Treated by ID in [place] Dr. Harris). Dr. Torres treated him with [...] from the original note were not included. [facility] PROGRESS NOTE Patient Name: Won [...] MD 04/04/2025 11:00 PM EDT Workstation ID: [id number] I have personally reviewed the therapy plans: [...] from the original note were not included. [facility] HISTORY AND PHYSICAL Patient Name: [...] MD 04/04/2025 11:00 PM EDT Workstation ID: [id number] Assessment & Plan Assessment & Plan Won [...] 4FR PICC placed by Rhoda Bonner RN [facility], tip verified by 3CG see LDA. * Sushil Dean Jr., MD - 04/05/2025 8:07 AM EDTAssociated Order(s): IP CONSULT TO ORTHOPEDIC SURGERY [facility] [address] [address] Orthopedic Consult Patient: Won Dennis Date of [...] was evaluated in the emergency department in [place], was discharged with instructions for follow-up. He [...] tablet by mouth Daily. 04/03/2025 Morning Lactobacillus-Inulin ([facility] Digestive [facility]) capsule Take 200 mg by mouth [...] MD 04/04/2025 11:00 PM EDT Workstation ID: [id number] Assessment: Right BKA infection 44-year-old male with [...] DISEASE CONSULT/INITIAL HOSPITAL VISIT Won Dennis 1980 [id number] Date of Consult: 04/05/2025 Admission Date: 04/04/2025 [...] Leonora Shepherd MD, 40 mg at 04/04/25 3277 sennosides-docusate (PERICOLACE) 8.6-50 MG per tablet 2 [...] MD, 20 mg at 04/05/25 09 heparin 54528 units/250 mL (100 units/mL) in 0.45 % [...] Leonora Shepherd MD, 10 mg at 04/04/25 2283 Pharmacy to Dose Heparin, , Not Applicable, [...] 250 mg, 250 mg, Oral, BID, Leonora Sehpherd MD, 250 mgat 04/05/25914 sertraline (ZOLOFT) tablet [...] Tibia Fibula Right With & Without Contrast [[id number]] Collected: 04/04/252256 Updated: 04/04/252302 Narrative: MRI TIBIA [...] represent a small area of phlegmonous change ([id number] image 10) measuring approximately 1.6 cm which [...] MD 04/04/2025 11:00 PM EDT Workstation ID: [id number] Impression: 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 (Treated by ID in [place] Dr. Harris). Dr. Torres treated him with [...] round/check completed toileting scheduled Taken 04/08/20251942 by oBb Rosenberg RN Safety Promotion/Fall Prevention: assistive device/personal [...] Jr., MD - 04/08/2025 3:51 PM EDT [facility] OPERATIVE REPORT PATIENT NAME: Won Dennis DATE OF : 1980 PREOP DIAGNOSIS: Right Right below-knee amputation infection POSTOP DIAGNOSIS: Same. PROCEDURE: Right Right 90320: Secondary closure below-knee amputation SURGEON: Sushil Dean MD OPERATIVE TEAM: [employer] Recruiter: Susi Grullon RN Scrub Person: Mary Paredes Scrub Person Extra: Hortencia Toribio Other: Katt Gotti RN; Charis Neville RN ANESTHETIST: Anesthesiologist: Ulises Hoffman MD BUSINESS CONSULTANT: Stan Casillas CRNA Student Nurse Apron Operator: Karol Albert SRNA ANESTHESIA: Choice ESTIMATED [...] CULTURE (Canceled) Sushil Dean Jr., MD 04/08/25 6837 Description: RIGHT LEG DEEP WOUND FOR CULTURE [...] PM EDT [facility], [place] [address] OPERATIVE REPORT PATIENT NAME: Won Dennis DATE OF : 1980 PREOP DIAGNOSIS: Right Right below knee amputation stump infection POSTOP DIAGNOSIS: Same. PROCEDURE: Right Right 16042: Incision and drainage of surgical site infection 20261: Debridement of skin, subcutaneous tissue, muscle 09930: Wound vacuum-assisted closure SURGEON: Sushil Dean MD OPERATIVE TEAM: Oil And Gas Recruiter: Anum Sanchez RN Scrub Person: Hortencia Toribio; Gerald Ivey LOT WORKER: Anesthesiologist: Luci Alonso DO ANESTHESIA: General [...] and updated. Patient was surrendered to the anesthesiateam and transported to the operative suite where [...] this chart in the absence of a beverage manager. No orders to display RADIOLOGY: [x] [...] is discharging home with outpatient infusion at [facility]. He has an appointment with [facility] at 8:00 am tomorrow. They will [...] with KELLEE and given themhis Medicare number [id number], she sent it to Admission. DEBRA spoke with Kerri, with [facility], and explained that he had Medicare A and B. However, it will not cover home infusion. It will be $64.00 a day out of packet. Patients can go to the Infusion center at [facility], and it will cover the cost as an outpatient. He will need to go there every day for infusion. They will be able to do the patients' PICC line dressing changes and lab work. DEBRA called [facility] infusion center they can accept patient and start him. He is known for their facility. The Facility will need to run it through his insurance first. CM faxed the orders over to [facility] at [phone]. CM will follow up with them tomorrow at [facility] to make sure they received the [...] 04/09/2025 2:51 PM EDT Continued Stay Note [facility] Patient Name: Won Dennis Today's Date: 04/09/2025 Admit Date: 04/04/2025 Plan: Home Discharge Plan Row Name 04/09/25 1311 Plan Plan Home Patient/Family in Agreement with Plan yes Plan Comments CM spoke with patient at bedside today. Wheelchair from [employer] is at bedside. Patient getting PICC line [...] note were not included. Discharge Planning Assessment [facility] Patient Name: Won Dennis Today's Date: 04/07/2025 [...] with family Patient/Family Anticipated Services at Transition bilingual case managerexchange floor manager Anticipated family or friend will provide [...] [facility]. He is not current with home health services. PCP is Dr. Jordan. Insurance is [facility] Medicaid [place]. Patient discharge plan is home with priavte transport. CM will follow for any discharge needs. Final Discharge Disposition Code 01 - home or self-care Continued Care and Services - Admitted Since 04/04/2025 No active coordination exists. Demographic Summary Row Name 04/07/25 1143 General Information Arrived From hospital Preferred Language Eritrean Functional Status Row Name 04/07/25 1143 Functional [...] CBC Auto Differential (04/11/2025 3:40 AM EDT) [facility] WBC 7.87 3.40 - 10.80 10*3/mm3 04/11/2025 4:02 AM EDT [facility] RBC 4.70 4.14 - 5.80 10*6/mm3 04/11/2025 4:02 AM [facility] Hemoglobin 12.8(L) 13.0 - 17.7 g/dL 04/[facility]2025 4[facility] Hematocrit 40.5 37.5 - 51.0 % 04/11/2025 4:02 AM [facility] MCV 86.2 79.0 - 97.0 fL 04/11/2025 4:02 [facility] MCH 27.2 26.6 - 33.0 pg 04/11/2025 4:02 AM [facility] MCHC 31.6 31.5 - 35.7 g/dL 04/11/2025 4:02 AM [facility] RDW 12.9 12.3 - 15.4 % 04/11/2025 4:02 AM [facility] RDW-SD 40.5 37.0 - 54.0 fl 04/11/2025 4:02 AM [facility] MPV 9.2 6.0 - 12.0 fL 04/11/2025 4:02 AM [facility] Platelets 267 140 - 450 10*3/mm3 04/11/2025 4:02 AM [facility] Neutrophil % 59.5 42.7 - 76.0 % 04/11/2025 4:02 AM [facility] Lymphocyte % 26.3 19.6 - 45.3 % 04/11/2025 4:02 AM [facility] Monocyte % 9.3 5.0 - 12.0 % 04/11/2025 4:02 [facility] Eosinophil % 4.1 0.3 - 6.2 % 04/11/2025 4:02 AM [facility] Basophil % 0.4 0.0 - 1.5 % 04/11/2025 4:02 AM [facility] Immature Grans % 0.4 0.0 - 0.5 % 04/11/2025 4:02 AM [facility] Neutrophils, Absolute 4.69 1.70 - 7.00 10*3/mm3 04/11/2025 4:02 AM EDT [facility] Lymphocytes, Absolute 2.07 0.70 - 3.10 10*3/mm3 04/11/2025 4:02 AM EDT [facility] Monocytes, Absolute 0.73 0.10 - 0.90 10*3/mm3 04/11/2025 4:02 AM EDT [facility] Eosinophils, Absolute 0.32 0.00 - 0.40 10*3/mm3 04/11/2025 4:02 AM EDT [facility] Basophils, Absolute 0.03 0.00 - 0.20 10*3/mm3 04/11/2025 4:02 AM EDT [facility] Immature Grans, Absolute 0.03 0.00 - 0.05 10*3/mm3 04/11/2025 4:02 AM EDT [facility] nRBC 0.0 0.0 - 0.2 /100 WBC 04/11/2025 4:02 AM EDT [facility] Blood Venipuncture / Unknown 04/11/2025 3:40 AM EDT 04/11/2025 3:59 AM EDT us Sushil Dean Jr., MD LAB BLOOD ORDERABLES Fi nal Result [facility]
[address] [place] [address], * (ABNORMAL) Comprehensive Metabolic Panel (04/11/2025 3:40 AM EDT) Glucose 108(H) 65 - 99 mg/dL 04/11/2025 4:19 AM EDT [facility] BUN 12.5 6.0 - 20.0 mg/dL 04/11/2025 4:19 AM EDT [facility] Creatinine 0.68(L) 0.76 - 1.27 mg/dL 04/11/2025 4:19 AM [facility] Sodium 140 136 - 145 mmol/L 04/11/2025 4:19 AM [facility] Potassium 3.8 3.5 - 5.2 mmol/L 04/11/2025 4:19 AM [facility] Chloride 105 98 - 107 mmol/L 04/11/2025 4:19 AM [facility] CO2 28.2 22.0 - 29.0 mmol/L 04/11/2025 4:19 AM [facility] Calcium 8.2(L) 8.6 - 10.5 mg/dL 04/11/2025 4:19 AM [facility] Total Protein 6.1 6.0 - 8.5 g/dL 04/11/2025 4:19 AM [facility] Albumin 3.1(L) 3.5 - 5.2 g/dL 04/11/2025 4:19 AM [facility] ALT (SGPT) 52(H) 1 - 41 U/L 04/11/2025 4:19 AM [facility] AST (SGOT) 40 1 - 40 U/L 04/11/2025 4:19 AM [facility] Alkaline Phosphatase 99 39 - 117 U/L 04/11/2025 4:19 AM [facility] Total Bilirubin 0.2 0.0 - 1.2 mg/dL 04/11/2025 4:19 AM [facility] Globulin 3.0 gm/dL 04/11/2025 4:19 AM [facility] Comment:Calculated Result A/G Ratio 1.0 g/dL 04/11/2025 4:19 AM [facility] BUN/Creatinine Ratio 18.4 7.0 - 25.0 04/11/2025 4:19 AM [facility] Anion Gap 6.8 5.0 - 15.0 mmol/L 04/11/2025 4:19 AM [facility] eGFR 117.5 >60.0 mL/min/1.7 3 04/11/2025 4:19 AM EDT [facility] Blood Venipuncture / Unknown 04/11/2025 3:40 AM EDT 04/11/2025 3:56 AM EDT [facility] - 04/11/2025 4:19 AM EDT GFR [...] include race as a factor Rosario Hill CLOTHES SEPARATOR LAB BLOOD ORDERABLES Final Result [facility]
[address] [place] [address], * (ABNORMAL) CBC Auto Differential (04/10/2025 3:46 AM EDT) WBC 9.60 3.40 - 10.80 10*3/mm3 04/10/2025 3:56 AM EDT [facility] RBC 4.67 4.14 - 5.80 10*6/mm3 04/10/2025 3:56 AM EDT [facility] Hemoglobin 12.9(L) 13.0 - 17.7 g/dL 04/10/2025 3:56 AM EDT [facility] Hematocrit 40.1 37.5 - 51.0 % 04/10/2025 3:56 AM EDT [facility] MCV 85.9 79.0 - 97.0 fL 04/10/2025 3:56 AM EDT [facility] MCH 27.6 26.6 - 33.0 pg 04/10/2025 3:56 AM EDT [facility] MCHC 32.2 31.5 - 35.7 g/dL 04/10/2025 3:56 AM [facility] RDW 12.9 12.3 - 15.4 % 04/10/2025 3:56 AM [facility] RDW-SD 40.5 37.0 - 54.0 fl 04/10/2025 3:56 AM [facility] MPV 9.5 6.0 - 12.0 fL 04/10/2025 3:56 AM EDT [facility] Platelets 227 140 - 450 10*3/mm3 04/10/2025 3:56 AM [facility] Neutrophil % 59.1 42.7 - 76.0 % 04/10/2025 3:56 AM [facility] Lymphocyte % 29.0 19.6 - 45.3 % 04/10/2025 3:56 AM [facility] Monocyte % 8.1 5.0 - 12.0 % 04/10/2025 3:56 AM [facility] Eosinophil % 3.2 0.3 - 6.2 % 04/10/2025 3:56 AM [facility] Basophil % 0.4 0.0 - 1.5 % 04/10/2025 3:56 AM [facility] Immature Grans % 0.2 0.0 - 0.5 % 04/10/2025 3:56 AM [facility] Neutrophils, Absolute 5.67 1.70 - 7.00 10*3/mm3 04/10/2025 3:56 AM [facility] Lymphocytes, Absolute 2.78 0.70 - 3.10 10*3/mm3 04/10/2025 3:56 AM [facility] Monocytes, Absolute 0.78 0.10 - 0.90 10*3/mm3 04/10/2025 3:56 AM [facility] Eosinophils, Absolute 0.31 0.00 - 0.40 10*3/mm3 04/10/2025 3:56 AM [facility] Basophils, Absolute 0.04 0.00 - 0.20 10*3/mm3 04/10/2025 3:56 AM EDT [facility] Immature Grans, Absolute 0.02 0.00 - 0.05 10*3/mm3 04/10/2025 3:56 AM EDT [facility] nRBC 0.0 0.0 - 0.2 /100 WBC 04/10/2025 3:56 AM EDT [facility] Blood Venipuncture / Unknown 04/10/2025 3:46 AM EDT 04/10/2025 3:53 AM EDT us Jason Álvarez DO LAB BLOOD ORDERABLES Final Resul t [facility]
[address] [place] [address], * (ABNORMAL) Basic Metabolic Panel (04/10/2025 3:46 AM EDT) Glucose 125(H) 65 - 99 mg/dL 04/10/2025 4:20 AM EDT [facility] BUN 15.9 6.0 - 20.0 mg/dL 04/10/2025 4:20 AM EDT [facility] Creatinine 0.77 0.76 - 1.27 mg/dL 04/10/2025 4:20 AM EDT [facility] Sodium 137 136 - 145 mmol/L 04/10/2025 4:20 AM EDT [facility] Potassium 3.9 3.5 - 5.2 mmol/L 04/10/2025 4:20 AM EDT [facility] Chloride 102 98 - 107 mmol/L 04/10/2025 4:20 AM EDT [facility] CO2 26.9 22.0 - 29.0 mmol/L 04/10/2025 4:20 AM EDT [facility] Calcium 7.9(L) 8.6 - 10.5 mg/dL 04/10/2025 4:20 AM [facility] BUN/Creatinine Ratio 20.6 7.0 - 25.0 04/10/2025 4:20 AM EDT [facility] Anion Gap 8.1 5.0 - 15.0 mmol/L 04/10/2025 4:20 AM EDT [facility] eGFR 113.2 >60.0 mL/min/1.7 3 04/10/2025 4:20 AM EDT [facility] Blood Venipuncture / Unknown 04/10/2025 3:46 AM EDT 04/10/2025 3:52 AM EDT Narrative [facility] - 04/10/2025 4:20 AM [...] DO LAB BLOOD ORDERABLES Final Resul t [facility]
[address] [place] [address], * Heparin Anti-Xa (04/10/2025 3:46 AM EDT) Heparin Anti-Xa (UFH) 0.35 0.30 - 0.70 IU/ml 04/10/2025 4:23 AM EDT [facility] Blood Venipuncture / Unknown 04/10/2025 3:46 AM EDT 04/10/2025 3:53 AM EDT Larisa Hamilton [facility] LAB BLOOD ORDERABLES Final R esult [facility]
[address] [place] [address], * Heparin Anti-Xa (04/09/2025 10:05 AM EDT) Heparin Anti-Xa (UFH) 0.36 0.30 - 0.70 IU/ml 04/09/2025 11:12 AM EDT [facility] Blood Venipuncture / Unknown 04/09/2025 10:05 AM EDT 04/09/2025 10:47 AM EDT Larisa Hamilton [facility] LAB BLOOD ORDERABLES Final R esult [facility]
[address] [place] [address], * (ABNORMAL) CBC Auto Differential (04/09/2025 4:18 AM EDT) WBC 11.00(H) 3.40 - 10.80 10*3/mm3 04/09/2025 4:50 AM EDT [facility] RBC 4.70 4.14 - 5.80 10*6/mm3 04/09/2025 4:50 AM EDT [facility] Hemoglobin 13.0 13.0 - 17.7 g/dL 04/09/2025 4:50 AM EDT [facility] Hematocrit 40.4 37.5 - 51.0 % 04/09/2025 4:50 AM EDT [facility] MCV 86.0 79.0 - 97.0 fL 04/09/2025 4:50 AM EDT [facility] MCH 27.7 26.6 - 33.0 pg 04/09/2025 4:50 AM EDT [facility] MCHC 32.2 31.5 - 35.7 g/dL 04/09/2025 4:50 AM EDT [facility] RDW 12.8 12.3 - 15.4 % 04/09/2025 4:50 AM [facility] RDW-SD 39.9 37.0 - 54.0 fl 04/09/2025 4:50 AM [facility] MPV 10.0 6.0 - 12.0 fL 04/09/2025 4:50 AM [facility] Platelets 211 140 - 450 10*3/mm3 04/09/2025 4:50 AM [facility] Neutrophil % 74.8 42.7 - 76.0 % 04/09/2025 4:50 AM [facility] Lymphocyte % 15.4(L) 19.6 - 45.3 % 04/09/2025 4:50 AM [facility] Monocyte % 8.5 5.0 - 12.0 % 04/09/2025 4:50 AM [facility] Eosinophil % 0.6 0.3 - 6.2 % 04/09/2025 4:50 AM [facility] Basophil % 0.4 0.0 - 1.5 % 04/09/2025 4:50 AM [facility] Immature Grans % 0.3 0.0 - 0.5 % 04/09/2025 4:50 AM [facility] Neutrophils, Absolute 8.23(H) 1.70 - 7.00 10*3/mm3 04/09/2025 4:50 AM [facility] Lymphocytes, Absolute 1.69 0.70 - 3.10 10*3/mm3 04/09/2025 4:50 AM [facility] Monocytes, Absolute 0.94(H) 0.10 - 0.90 10*3/mm3 04/09/2025 4:50 AM [facility] Eosinophils, Absolute 0.07 0.00 - 0.40 10*3/mm3 04/09/2025 4:50 AM [facility] Basophils, Absolute 0.04 0.00 - 0.20 10*3/mm3 04/09/2025 4:50 AM [facility] Immature Grans, Absolute 0.03 0.00 - 0.05 10*3/mm3 04/09/2025 4:50 AM EDT [facility] nRBC 0.0 0.0 - 0.2 /100 WBC 04/09/2025 4:50 AM EDT [facility] Blood Venipuncture / Unknown 04/09/2025 4:18 AM EDT 04/09/2025 4:31 AM EDT Sushil Dean Jr., MD LAB BLOOD ORDERABLES Fi nal Result [facility]
[address] [place] [address], * Heparin Anti-Xa (04/09/2025 4:18 AM EDT) Heparin Anti-Xa (UFH) 0.41 0.30 - 0.70 IU/ml 04/09/2025 4:53 AM EDT [facility] Blood Venipuncture / Unknown 04/09/2025 4:18 AM EDT 04/09/2025 4:31 AM EDT Una LundbergD LAB BLOOD ORDERABLES Final R esult [facility]
[address] [place] [address], * (ABNORMAL) Basic Metabolic Panel (04/09/2025 4:18 AM EDT) Glucose 147(H) 65 - 99 mg/dL 04/09/2025 5:33 AM EDT [facility] BUN 23.0(H) 6.0 - 20.0 mg/dL 04/09/2025 5:33 AM EDT [facility] Creatinine 1.15 0.76 - 1.27 mg/dL 04/09/2025 5:33 AM EDT [facility] Sodium 135(L) 136 - 145 mmol/L 04/09/2025 5:33 AM EDT [facility] Potassium 4.2 3.5 - 5.2 mmol/L 04/09/2025 5:33 AM EDT [facility] Chloride 100 98 - 107 mmol/L 04/09/2025 5:33 AM EDT [facility] CO2 26.0 22.0 - 29.0 mmol/L 04/09/2025 5:33 AM EDT [facility] Calcium 8.2(L) 8.6 - 10.5 mg/dL 04/09/2025 5:33 AM EDT [facility] BUN/Creatinine Ratio 20.0 7.0 - 25.0 04/09/2025 5:33 AM EDT [facility] Anion Gap 9.0 5.0 - 15.0 mmol/L 04/09/2025 5:33 AM EDT [facility] eGFR 80.5 >60.0 mL/min/1.7 3 04/09/2025 5:33 AM EDT [facility] Blood Venipuncture / Unknown 04/09/2025 4:18 AM EDT 04/09/2025 4:29 AM EDT [facility] - 04/09/2025 5:33 AM EDT GFR [...] Jr., MD LAB BLOOD ORDERABLES nal Result [facility]
[address] [place] [address], * Wound Culture - Swab, Leg, Right (04/08/2025 3:40 PM EDT) Wound Culture No growth at 3 days ALIZA 04/11/2025 10:40 AM EDT [facility] Gram Stain Few (2+) WBCs seen 04/11/2025 10:40 AM EDT [facility] Gram Stain No organisms seen 04/11/2025 10:40 AM EDT [facility] Swab Structure of right lower limb / Unknown 04/08/2025 3:40 PM EDT 04/08/2025 8:05 PM EDT Sushil Dean Jr., MD MICROBIOLOGY - GENERAL ORDERABLES Final Result Performing Organization Address City/[facility]/ZIP Co de Phone Number [facility]
[address] [place] [address], [facility]
[address] [place] [address], * Anaerobic Culture - Swab, Leg, Right (04/08/2025 3:40 PM EDT) Pathologist [facility] Anaerobic Culture No anaerobes isolated at 5 days ALIZA 04/13/2025 7:24 AM EDT [facility] Swab Structure of right lower limb / Unknown 04/08/2025 3:40 PM EDT 04/08/2025 8:05 PM EDT Sushil Dean Jr., MD MICROBIOLOGY - GENERAL ORDERABLES Final Result [facility]
[address] [place] [address], * Scan Slide (04/08/2025 8:41 AM EDT) RBC Morphology Normal Normal 04/08/2025 11:02 AM EDT [facility] WBC Morphology Normal Normal 04/08/2025 11:02 AM EDT [facility] Platelet Estimate Adequate Normal 04/08/2025 11:02 AM EDT [facility] Clumped Platelets Present None Seen 04/08/2025 11:02 AM EDT [facility] Blood Venipuncture / Unknown 04/08/2025 8:41 AM EDT 04/08/2025 9:10 AM EDT Una Perla PharmD LAB BLOOD ORDERABLES Final R esult [facility]
[address] [place] [address], * (ABNORMAL) CBC Auto Differential (04/08/2025 8:41 AM EDT) WBC 10.07 3.40 - 10.80 10*3/mm3 04/08/2025 11:02 AM EDT [facility] RBC 5.01 4.14 - 5.80 10*6/mm3 04/08/2025 11:02 AM EDT [facility] Hemoglobin 14.0 13.0 - 17.7 g/dL 04/08/2025 11:02 AM EDT [facility] Hematocrit 42.7 37.5 - 51.0 % 04/08/2025 11:02 AM EDT [facility] MCV 85.2 79.0 - 97.0 fL 04/08/2025 11:02 AM EDT [facility] MCH 27.9 26.6 - 33.0 pg 04/08/2025 11:02 AM EDT [facility] MCHC 32.8 31.5 - 35.7 g/dL 04/08/2025 11:02 AM EDT [facility] RDW 12.6 12.3 - 15.4 % 04/08/2025 11:02 AM EDT [facility] RDW-SD 38.9 37.0 - [...] 1.70 - 7.00 10*3/mm3 04/08/2025 11:02 AM [facility] Lymphocytes, Absolute 0.94 0.70 - 3.10 10*3/mm3 04/08/2025 11:02 AM [facility] Monocytes, Absolute 0.46 0.10 - 0.90 10*3/mm3 04/08/2025 11:02 AM [facility] Eosinophils, Absolute 0.03 0.00 - 0.40 10*3/mm3 04/08/2025 11:02 AM [facility] Basophils, Absolute 0.02 0.00 - 0.20 10*3/mm3 04/08/2025 11:02 AM [facility] Immature Grans, Absolute 0.05 0.00 - 0.05 10*3/mm3 04/08/2025 11:02 AM EDT [facility] nRBC 0.0 0.0 - 0.2 /100 WBC 04/08/2025 11:02 AM EDT [facility] Blood Venipuncture / Unknown 04/08/2025 8:41 AM EDT 04/08/2025 9:10 AM EDT Una Perla PharmD LAB BLOOD ORDERABLES Final R esult [facility]
[address] [place] [address], * (ABNORMAL) Basic Metabolic Panel (04/08/2025 8:41 AM EDT) Glucose 125(H) 65 - 99 mg/dL 04/08/2025 9:51 AM EDT [facility] BUN 13.2 6.0 - 20.0 mg/dL 04/08/2025 9:51 AM EDT [facility] Creatinine 0.69(L) 0.76 - 1.27 mg/dL 04/08/2025 9:51 AM EDT [facility] Sodium 136 136 - 145 mmol/L 04/08/2025 9:51 AM EDT [facility] Potassium 4.6 3.5 - 5.2 mmol/L 04/08/2025 9:51 AM EDT [facility] Chloride 102 98 - 107 mmol/L 04/08/2025 9:51 AM EDT [facility] CO2 23.5 22.0 - 29.0 mmol/L 04/08/2025 9:51 AM EDT [facility] Calcium 8.4(L) 8.6 - 10.5 mg/dL 04/08/2025 9:51 AM EDT [facility] BUN/Creatinine Ratio 19.1 7.0 - 25.0 04/08/2025 9:51 AM EDT [facility] Anion Gap 10.5 5.0 - 15.0 mmol/L 04/08/2025 9:51 AM EDT [facility] eGFR 117.0 >60.0 mL/min/1.7 3 04/08/2025 9:51 AM EDT [facility] Blood Venipuncture / Unknown 04/08/2025 8:41 AM EDT 04/08/2025 9:09 AM EDT Narrative [facility] - 04/08/2025 9:51 AM [...] ORDERABLES Fi nal Result Performing Organization Address City/[facility]/ZIP Co de Phone Number [facility]
[address] [place] [address], * Heparin Anti-Xa (04/08/2025 8:41 AM EDT) Heparin Anti-Xa (UFH) 0.33 0.30 - 0.70 IU/ml 04/08/2025 9:40 AM EDT [facility] Blood Venipuncture / Unknown 04/08/2025 8:41 AM EDT 04/08/2025 9:10 AM EDT us Sushil Dean Jr., MD LAB BLOOD ORDERABLES Fi nal Result Performing Organization Address City/[facility]/ZIP Co de Phone Number [facility]
[address] [place] [address], [place] [phone] * [place] C Arm During Surgery (04/07/2025 9:32 PM EDT) Narrative SYSTEMGENERATED, DOCUMENTATION - 04/07/2025 9:38 PM EDT This procedure was auto-finalized with no dictation required. us Sushil Dean Jr., MD IMG FLUOROSCOPY ORDERAB LES Final Result * Wound Culture - Swab, Leg, Right (04/07/2025 9:14 PM EDT) Wound Culture No growth at 3 days ALIZA 04/11/2025 10:40 AM EDT [facility] Gram Stain Occasional WBCs seen 04/11/2025 10:40 AM EDT [facility] Gram Stain No organisms seen 04/11/2025 10:40 AM EDT [facility] Swab Structure of right lower limb / Unknown Collection / Unknown 04/07/2025 9:14 PM EDT 04/08/2025 4:36 AM EDT us Sushil Dean Jr., MD MICROBIOLOGY - GENERAL ORDERABLES Final Result Performing Organization Address City/[facility]/ZIP Co de Phone Number [facility]
[address] [place] [address], [facility]
[address] [place] [address], * Anaerobic Culture - Swab, Leg, Right (04/07/2025 9:14 PM EDT) Anaerobic Culture No anaerobes isolated at 5 days ALIZA 04/13/2025 7:21 AM EDT [facility] Swab Structure of right lower limb / Unknown Collection / Unknown 04/07/2025 9:14 PM EDT 04/08/2025 4:36 AM EDT us Sushil Dean Jr., MD MICROBIOLOGY - GENERAL ORDERABLES Final Result [facility]
[address] [place] [address], * Anaerobic Culture - Tissue, Leg (04/07/2025 9:13 PM EDT) Anaerobic Culture No anaerobes isolated at 5 days ALIZA 04/13/2025 7:21 AM EDT [facility] Tissue Lower limb structure / Unknown Collection / Unknown 04/07/2025 9:13 PM EDT 04/08/2025 4:54 AM EDT Jason Álvarez DO MICROBIOLOGY - GENERAL ORDERABLE S Final Result [facility]
[address] [place] [address], * Tissue / Bone Culture - Tissue, Leg, Right (04/07/2025 9:13 PM EDT) [facility] Tissue Culture No growth at 3 days ALIZA 04/11/2025 10:36 AM EDT [facility] Gram Stain Rare (1+) WBCs seen 04/11/2025 10:36 AM EDT [facility] Gram Stain No organisms seen 04/11/2025 10:36 AM EDT [facility] Tissue Structure of right lower limb / Unknown 04/07/2025 9:13 PM EDT 04/08/2025 4:54 AM EDT Sushil Dean Jr., MD MICROBIOLOGY - GENERAL ORDERABLES Final Result [facility]
[address] [place] [address], [facility]
[address] [place] [address], * (ABNORMAL) Wound Culture - Swab, Leg, Right (04/07/2025 9:07 PM EDT) Wound Culture Light growth (2+) Staphylococcus aureus, MRSA(A) ALIZA 04/10/2025 10:38 AM EDT [facility] Comment: Methicillin resistant Staphylococcus aureus, Patient may be an isolation risk. Gram Stain Few (2+) WBCs seen 04/10/2025 10:38 AM EDT [facility] Gram Stain No organisms seen 10:38 AM EDT [facility] Swab [...] MICROBIOLOGY - GENERAL ORDERABLES Final Result [facility]
[address] [place] [address], [place] [phone] [facility]
[address] [place] [address], [place] [phone] * Anaerobic Culture - Swab, Leg, Right (04/07/2025 9:07 PM EDT) Anaerobic Culture No anaerobes isolated at 5 days ALIZA 04/13/2025 7:21 AM EDT [facility] Swab Structure of right lower limb / Unknown Collection / Unknown 04/07/2025 9:07 PM EDT 04/08/2025 4:36 AM EDT us Sushil Dean Jr., MD MICROBIOLOGY - GENERAL ORDERABLES Final Result [facility]
[address] [place] [address], * Heparin Anti-Xa (04/07/2025 9:10 AM EDT) [facility] Heparin Anti-Xa (UFH) 0.30 0.30 - 0.70 IU/ml 04/07/2025 10:12 AM EDT [facility] Blood Venipuncture / Unknown 04/07/2025 9:10 AM EDT 04/07/2025 9:38 AM EDT Una LundbergD LAB BLOOD ORDERABLES Final R esult [facility]
[address] [place] [address], [place] [phone] * (ABNORMAL) CBC Auto Differential (04/07/2025 9:10 AM EDT) [facility] WBC 8.63 3.40 - 10.80 10*3/mm3 04/07/2025 9:50 AM EDT [facility] RBC 5.23 4.14 - 5.80 10*6/mm3 04/07/2025 9:50 AM EDT [facility] Hemoglobin 14.7 13.0 - 17.7 g/dL 04/07/2025 9:50 AM EDT [facility] Hematocrit 44.8 37.5 - 51.0 % 04/07/2025 9:50 AM EDT [facility] MCV 85.7 79.0 - 97.0 fL 04/07/2025 9:50 AM EDT [facility] MCH 28.1 26.6 - 33.0 pg 04/07/2025 9:50 AM EDT [facility] MCHC 32.8 31.5 - 35.7 g/dL 04/07/2025 9:50 AM EDT [facility] RDW 12.8 12.3 - 15.4 % 04/07/2025 9:50 AM [facility] RDW-SD 39.9 37.0 - 54.0 fl 04/07/2025 9:50 AM [facility] MPV 10.8 6.0 - 12.0 fL 04/07/2025 9:50 AM [facility] Platelets 149 140 - 450 10*3/mm3 04/07/2025 9:50 AM [facility] Neutrophil % 66.7 42.7 - 76.0 % 04/07/2025 9:50 AM [facility] Lymphocyte % 20.5 19.6 - 45.3 % 04/07/2025 9:50 AM [facility] Monocyte % 9.8 5.0 - 12.0 % 04/07/2025 9:50 AM [facility] Eosinophil % 2.1 0.3 - 6.2 % 04/07/2025 9:50 AM [facility] Basophil % 0.3 0.0 - 1.5 % 04/07/2025 9:50 AM [facility] Immature Grans % 0.6(H) 0.0 - 0.5 % 04/07/2025 9:50 AM [facility] Neutrophils, Absolute 5.75 1.70 - 7.00 10*3/mm3 04/07/2025 9:50 AM [facility] Lymphocytes, Absolute 1.77 0.70 - 3.10 10*3/mm3 04/07/2025 9:50 AM [facility] Monocytes, Absolute 0.85 0.10 - 0.90 10*3/mm3 04/07/2025 9:50 AM [facility] Eosinophils, Absolute 0.18 0.00 - 0.40 10*3/mm3 04/07/2025 9:50 AM [facility] Basophils, Absolute 0.03 0.00 - 0.20 10*3/mm3 04/07/2025 9:50 AM [facility] Immature Grans, Absolute 0.05 0.00 - 0.05 10*3/mm3 04/07/2025 9:50 AM EDT [facility] nRBC 0.0 0.0 - 0.2 /100 WBC 04/07/2025 9:50 AM EDT [facility] Blood Venipuncture / Unknown 04/07/2025 9:10 AM EDT 04/07/2025 9:38 AM EDT Jasonalfonso Álvarez DO LAB BLOOD ORDERABLES Final Resul t [facility]
[address] [place] [address], * (ABNORMAL) Basic Metabolic Panel (04/07/2025 9:10 AM EDT) Glucose 112(H) 65 - 99 mg/dL 04/07/2025 10:19 AM EDT [facility] BUN 13.1 6.0 - 20.0 mg/dL 04/07/2025 10:19 AM EDT [facility] Creatinine 0.77 0.76 - 1.27 mg/dL 04/07/2025 10:19 AM EDT [facility] Sodium 139 136 - 145 mmol/L 04/07/2025 10:19 AM EDT [facility] Potassium 4.2 3.5 - 5.2 mmol/L 04/07/2025 10:19 AM EDT [facility] Comment:Specimen hemolyzed. Result may be falsely elevated. Chloride 105 98 - 107 mmol/L 04/07/2025 10:19 AM EDT [facility] CO2 24.8 22.0 - 29.0 mmol/L 04/07/2025 10:19 AM EDT [facility] Calcium 8.6 8.6 - 10.5 mg/dL 04/07/2025 10:19 AM EDT [facility] BUN/Creatinine Ratio 17.0 7.0 - 25.0 04/07/2025 10:19 AM EDT [facility] Anion Gap 9.2 5.0 - 15.0 mmol/L 04/07/2025 10:19 AM EDT [facility] eGFR 113.2 >60.0 mL/min/1.7 3 04/07/2025 10:19 AM EDT [facility] Blood Venipuncture / Unknown 04/07/2025 9:10 AM EDT 04/07/2025 9:38 AM EDT Narrative [facility] - 04/07/2025 10:19 AM [...] POWELL LAB BLOOD ORDERABLES Final Resul t [facility]
[address] [place] [address], * MRI Tibia Fibula Right With & [...] [place] 04/07/2025 9:58 AM EDT Workstation ID: [id number] Narrative 04/07/2025 9:58 AM EDT MRI TIBIA [...] [place] 04/07/2025 9:58 AM EDT Workstation ID: [id number] us Sushil Dean Jr., MD IM MRI ORDERABLES Mary Beth l Result * Heparin Anti-Xa (04/07/2025 1:42 AM EDT) [facility] Heparin Anti-Xa (UFH) 0.38 0.30 - 0.70 IU/ml 04/07/2025 2:14 AM EDT [facility] Blood Venipuncture / Unknown 04/07/2025 1:42 AM EDT 04/07/2025 1:54 AM EDT Chelsie Turpin [facility] LAB BLOOD ORDERABLES Final R esult [facility]
[address] [place] [address], * Heparin Anti-Xa (04/06/2025 7:16 PM EDT) [facility] Heparin Anti-Xa (UFH) 0.33 0.30 - 0.70 IU/ml 04/06/2025 7:50 PM EDT [facility] Blood Venipuncture / Unknown 04/06/2025 7:16 PM EDT 04/06/2025 7:35 PM EDT Cherri Rogerio RPH LAB BLOOD ORDERABLES Final Res ult Performing Organization Address City/[facility]/ZIP Co de Phone Number [facility]
[address] [place] [address], * Potassium (04/06/2025 7:16 PM EDT) Potassium 4.0 3.5 - 5.2 mmol/L 04/06/2025 7:53 PM EDT [facility] Blood Venipuncture / Unknown 04/06/2025 7:16 PM EDT 04/06/2025 7:35 PM EDT Jason Álvarez DO LAB BLOOD ORDERABLES Final Resul t Performing Organization Address [facility] de Phone Number [facility]
[address] [place] [address], * (ABNORMAL) Heparin Anti-Xa (04/06/2025 12:36 PM EDT) Heparin Anti-Xa (UFH) 0.24(L) 0.30 - 0.70 IU/ml 04/06/2025 1:23 PM EDT [facility] Blood Venipuncture / Unknown 04/06/2025 12:36 PM EDT 04/06/2025 1:07 PM EDT Una LundbergD LAB BLOOD ORDERABLES Final R esult Performing Organization Address City/[facility] Co de Phone Number [facility]
[address] [place] [address], * (ABNORMAL) Heparin Anti-Xa (04/06/2025 3:42 AM EDT) Pathologist [facility] Heparin Anti-Xa (UFH) 0.25(L) 0.30 - 0.70 IU/ml 04/06/2025 5:30 AM EDT [facility] Blood Venipuncture / Unknown 04/06/2025 3:42 AM EDT 04/06/2025 4:59 AM EDT Chelsie Turpin [facility] LAB BLOOD ORDERABLES Final R esult [facility]
[address] [place] [address], * (ABNORMAL) Basic Metabolic Panel (04/06/2025 3:42 AM EDT) Pathologist [facility] Glucose 94 65 - 99 mg/dL 04/06/2025 5:59 AM EDT [facility] BUN 12.8 6.0 - 20.0 mg/dL 04/06/2025 5:59 AM EDT [facility] Creatinine 0.80 0.76 - 1.27 mg/dL 04/06/2025 5:59 AM EDT [facility] Sodium 138 136 - 145 mmol/L 04/06/2025 5:59 AM EDT [facility] Potassium 3.6 3.5 - 5.2 mmol/L 04/06/2025 5:59 AM EDT [facility] Chloride 103 98 - 107 mmol/L 04/06/2025 5:59 AM EDT [facility] CO2 24.2 22.0 - 29.0 mmol/L 04/06/2025 5:59 AM EDT [facility] Calcium 8.0(L) 8.6 - 10.5 mg/dL 04/06/2025 5:59 AM EDT [facility] BUN/Creatinine Ratio 16.0 7.0 - 25.0 04/06/2025 5:59 AM EDT [facility] Anion Gap 10.8 5.0 - 15.0 mmol/L 04/06/2025 5:59 AM EDT [facility] eGFR 111.9 >60.0 mL/min/1.7 3 04/06/2025 5:59 AM EDT [facility] Blood Venipuncture / [...] DO LAB BLOOD ORDERABLES Final Resul t [facility]
[address] [place] [address], * (ABNORMAL) CBC Auto Differential (04/06/2025 3:41 AM EDT) WBC 10.86(H) 3.40 - 10.80 10*3/mm3 04/06/2025 5:04 AM EDT [facility] RBC 5.08 4.14 - 5.80 10*6/mm3 04/06/2025 5:04 AM EDT [facility] Hemoglobin 13.9 13.0 - 17.7 g/dL 04/06/2025 5:04 AM EDT [facility] Hematocrit 43.7 37.5 - 51.0 % 04/06/2025 5:04 AM EDT [facility] MCV 86.0 79.0 - 97.0 fL 04/06/2025 5:04 AM [facility] MCH 27.4 26.6 - 33.0 pg 04/06/2025 5:04 AM [facility] MCHC 31.8 31.5 - 35.7 g/dL 04/06/2025 5:04 AM [facility] RDW 12.8 12.3 - 15.4 % 04/06/2025 5:04 AM [facility] RDW-SD 40.0 37.0 - 54.0 fl 04/06/2025 5:04 AM [facility] MPV 11.7 6.0 - 12.0 fL 04/06/2025 5:04 AM [facility] Platelets 115(L) 140 - 450 10*3/mm3 04/06/2025 5:04 AM [facility] Neutrophil % 65.3 42.7 - 76.0 % 04/06/2025 5:04 AM [facility] Lymphocyte % 20.5 19.6 - 45.3 % 04/06/2025 5:04 AM [facility] Monocyte % 11.8 5.0 - 12.0 % 04/06/2025 5:04 AM [facility] Eosinophil % 1.8 0.3 - 6.2 % 04/06/2025 5:04 AM [facility] Basophil % 0.3 0.0 - 1.5 % 04/06/2025 5:04 AM [facility] Immature Grans % 0.3 0.0 - 0.5 % 04/06/2025 5:04 AM [facility] Neutrophils, Absolute 7.09(H) 1.70 - 7.00 10*3/mm3 04/06/2025 5:04 AM [facility] Lymphocytes, Absolute 2.23 0.70 - 3.10 10*3/mm3 04/06/2025 5:04 AM [facility] Monocytes, Absolute 1.28(H) 0.10 - 0.90 10*3/mm3 04/06/2025 5:04 AM EDT [facility] Eosinophils, Absolute 0.20 0.00 - 0.40 10*3/mm3 04/06/2025 5:04 AM EDT [facility] Basophils, Absolute 0.03 0.00 - 0.20 10*3/mm3 04/06/2025 5:04 AM EDT [facility] Immature Grans, Absolute 0.03 0.00 - 0.05 10*3/mm3 04/06/2025 5:04 AM EDT [facility] nRBC 0.0 0.0 - 0.2 /100 WBC 04/06/2025 5:04 AM EDT [facility] Blood Venipuncture / Unknown 04/06/2025 3:41 AM EDT 04/06/2025 4:58 AM EDT Jason Álvarez DO LAB BLOOD ORDERABLES Final Resul t Performing Organization Address City/[facility] Co de Phone Number [facility]
[address] [place] [address], [place] [phone] * Heparin Anti-Xa (04/05/2025 8:43 PM EDT) Pathologist [facility] Heparin Anti-Xa (UFH) 0.38 0.30 - 0.70 IU/ml 04/05/2025 9:09 PM EDT [facility] Blood Venipuncture / Unknown 04/05/2025 8:43 PM EDT 04/05/2025 8:55 PM EDT us Cherri Beatty [facility] LAB BLOOD ORDERABLES Final Res ult Performing Organization Address City/[facility]/ZIP Co de Phone Number [facility]
[address] [place] [address], [place] [phone] * CK (04/05/2025 12:15 PM EDT) Creatine Kinase 140 20 - 200 U/L 04/05/2025 1:31 PM EDT [facility] Blood Venipuncture / Unknown 04/05/2025 12:15 PM EDT 04/05/2025 1:03 PM EDT Carlton Mead MD LAB BLOOD ORDERABLES Final R esult Performing Organization Address City/[facility]/ZIP Co de Phone Number [facility]
[address] [place] [address], * (ABNORMAL) Heparin Anti-Xa (04/05/2025 12:15 PM EDT) Heparin Anti-Xa (UFH) 0.17(L) 0.30 - 0.70 IU/ml 04/05/2025 1:21 PM EDT [facility] Blood Venipuncture / Unknown 04/05/2025 12:15 PM EDT 04/05/2025 1:04 PM EDT Una Perla PharmD LAB BLOOD ORDERABLES Final R esult Performing Organization Address City/[facility] Co de Phone Number [facility]
[address] [place] [address], * (ABNORMAL) aPTT (04/05/2025 3:54 AM EDT) PTT 35.3(L) 60.0 - 90.0 seconds 04/05/2025 4:31 AM EDT [facility] Blood Venipuncture / Unknown 04/05/2025 3:54 AM EDT 04/05/2025 4:15 AM EDT Narrative [facility] - 04/05/2025 4:31 AM EDT PTT = The equivalent PTT values for the therapeutic range of heparin levels at 0.3 to 0.5 U/ml are 60 to 70 seconds. MYRD LAB BLOOD ORDERABLES Final R esult [facility]
[address] [place] [address], * Heparin Anti-Xa (04/05/2025 3:54 AM EDT) Pathologist [facility] Heparin Anti-Xa (UFH) 0.30 0.30 - 0.70 IU/ml 04/05/2025 4:32 AM EDT [facility] Blood Venipuncture / Unknown 04/05/2025 3:54 AM EDT 04/05/2025 4:15 AM EDT MYRD LAB BLOOD ORDERABLES Final R esult Performing Organization Address City/[facility]/ZIP Co de Phone Number [facility]
[address] [place] [address], * (ABNORMAL) CBC Auto Differential (04/05/2025 3:54 AM EDT) [facility] WBC 11.18(H) 3.40 - 10.80 10*3/mm3 04/05/2025 4:20 AM EDT [facility] RBC 5.00 4.14 - 5.80 10*6/mm3 04/05/2025 4:20 AM EDT [facility] Hemoglobin 13.9 13.0 - 17.7 g/dL 04/05/2025 4:20 AM EDT [facility] Hematocrit 42.4 37.5 - 51.0 % 04/05/2025 4:20 AM EDT [facility] MCV 84.8 79.0 - 97.0 fL 04/05/2025 4:20 AM EDT [facility] MCH 27.8 26.6 - 33.0 pg 04/05/2025 4:20 AM EDT [facility] MCHC 32.8 31.5 - [...] 42.7 - 76.0 % 04/05/2025 4:20 AM [facility] Lymphocyte % 14.0(L) 19.6 - 45.3 % 04/05/2025 4:20 AM [facility] Monocyte % 11.0 5.0 - 12.0 % 04/05/2025 4:20 AM [facility] Eosinophil % 0.8 0.3 - 6.2 % 04/05/2025 4:20 AM [facility] Basophil % 0.3 0.0 - 1.5 % 04/05/2025 4:20 AM [facility] Immature Grans % 0.4 0.0 - 0.5 % 04/05/2025 4:20 AM [facility] Neutrophils, Absolute 8.23(H) 1.70 - 7.00 10*3/mm3 04/05/2025 4:20 AM [facility] Lymphocytes, Absolute 1.56 0.70 - 3.10 10*3/mm3 04/05/2025 4:20 AM [facility] Monocytes, Absolute 1.23(H) 0.10 - 0.90 10*3/mm3 04/05/2025 4:20 AM [facility] Eosinophils, Absolute 0.09 0.00 - 0.40 10*3/mm3 04/05/2025 4:20 AM [facility] Basophils, Absolute 0.03 0.00 - 0.20 10*3/mm3 04/05/2025 4:20 AM EDT [facility] Immature Grans, Absolute 0.04 0.00 - 0.05 10*3/mm3 04/05/2025 4:20 AM EDT [facility] nRBC 0.0 0.0 - 0.2 /100 WBC 04/05/2025 4:20 AM EDT [facility] Blood Venipuncture / Unknown 04/05/2025 3:54 AM EDT 04/05/2025 4:16 AM EDT Una Perla PharmD LAB BLOOD ORDERABLES Final R esult [facility]
[address] [place] [address], * (ABNORMAL) Basic Metabolic Panel (04/05/2025 3:54 AM EDT) Glucose 152(H) 65 - 99 mg/dL 04/05/2025 4:40 AM EDT [facility] BUN 17.3 6.0 - 20.0 mg/dL 04/05/2025 4:40 AM EDT [facility] Creatinine 0.92 0.76 - 1.27 mg/dL 04/05/2025 4:40 AM EDT [facility] Sodium 136 136 - 145 mmol/L 04/05/2025 4:40 AM EDT [facility] Potassium 3.9 3.5 - 5.2 mmol/L 04/05/2025 4:40 AM EDT [facility] Chloride 103 98 - 107 mmol/L 04/05/2025 4:40 AM EDT [facility] CO2 24.0 22.0 - 29.0 mmol/L 04/05/2025 4:40 AM EDT [facility] Calcium 7.8(L) 8.6 - 10.5 mg/dL 04/05/2025 4:40 AM EDT [facility] BUN/Creatinine Ratio 18.8 7.0 - 25.0 04/05/2025 4:40 AM EDT [facility] Anion Gap 9.0 5.0 - 15.0 mmol/L 04/05/2025 4:40 AM EDT [facility] eGFR 105.2 >60.0 mL/min/1.7 3 04/05/2025 4:40 AM EDT [facility] Blood Venipuncture / Unknown 04/05/2025 3:54 AM EDT 04/05/2025 4:15 AM EDT [facility] - 04/05/2025 4:40 AM EDT GFR [...] MD LAB BLOOD ORDERABLES Final Re sult [facility]
[address] [place] [address], * (ABNORMAL) aPTT (04/05/2025 12:18 AM EDT) PTT 33.6(L) 60.0 - 90.0 seconds 04/05/2025 12:53 AM EDT [facility] Blood Venipuncture / Unknown 04/05/2025 12:18 AM EDT 04/05/2025 12:37 AM EDT [facility] - 04/05/2025 12:53 AM EDT PTT = The equivalent PTT values for the therapeutic range of heparin levels at 0.3 to 0.5 U/ml are 60 to 70 seconds. Intoo PharmD LAB BLOOD ORDERABLES Final R esult Performing Organization Address City/[facility]/ZIP Co de Phone Number [facility]
[address] [place] [address], * (ABNORMAL) Protime-INR (04/05/2025 12:18 AM EDT) Protime 15.9(H) 12.2 - 15.3 Seconds 04/05/2025 12:53 AM EDT [facility] INR 1.19(H) 0.89 - 1.12 04/05/2025 12:53 AM EDT [facility] Blood Venipuncture / Unknown 04/05/2025 12:18 AM EDT 04/05/2025 12:37 AM EDT Intoo PharmD LAB BLOOD ORDERABLES Final R esult Performing Organization Address [facility] Co de Phone Number [facility]
[address] [place] [address], * Heparin Anti-Xa (04/05/2025 12:18 AM EDT) Heparin Anti-Xa (UFH) 0.39 0.30 - 0.70 IU/ml 04/05/2025 12:54 AM EDT [facility] Blood Venipuncture / Unknown 04/05/2025 12:18 AM EDT 04/05/2025 12:37 AM EDT Intoo PharmD LAB BLOOD ORDERABLES Final R esult Performing Organization Address City/[facility] Co de Phone Number [facility]
[address] [place] [address], * MRI Tibia Fibula Right With & Without Contrast (04/04/2025 5:54 PM EDT) Anatomical Region Laterality Modality Lower Extremities, Lower Leg [facility] 04/04/2025 10:5 7 PM EDT [...] MD 04/04/2025 11:00 PM EDT Workstation ID: [id number] Narrative 04/04/2025 11:00 PM EDT MRI TIBIA [...] MD 04/04/2025 11:00 PM EDT Workstation ID: [id number] Leonora Shepherd MD IMG MRI ORDERABLES Final Resu lt * POC Creatinine (04/04/2025 2:49 PM EDT) Creatinine 1.10 0.60 - 1.30 mg/dL 04/07/2025 7:14 PM EDT [facility] Comment:Serial Number: [id number] Venous Blood 04/04/2025 2:49 PM EDT 04/07/2025 7:14 PM EDT Jason Álvarez DO POINT OF CARE TEST ORDERABLES Fi nal Result [facility]
[address] [place] [address], * (ABNORMAL) CBC Auto Differential (04/04/2025 2:47 PM EDT) [facility] WBC 12.72(H) 3.40 - 10.80 10*3/mm3 04/04/2025 2:56 PM EDT [facility] RBC 5.64 4.14 - 5.80 10*6/mm3 04/04/2025 2:56 PM EDT [facility] Hemoglobin 15.3 13.0 - 17.7 g/dL 04/04/2025 2:56 PM EDT [facility] Hematocrit 47.9 37.5 - 51.0 % 04/04/2025 2:56 PM EDT [facility] MCV 84.9 79.0 - 97.0 fL 04/04/2025 2:56 PM EDT [facility] MCH 27.1 26.6 - 33.0 pg 04/04/2025 2:56 PM EDT [facility] MCHC 31.9 31.5 - 35.7 g/dL 04/04/2025 2:56 PM EDT [facility] RDW 13.1 12.3 - 15.4 % 04/04/2025 2:56 PM EDT [facility] RDW-SD 40.3 37.0 - 54.0 fl 04/04/2025 2:56 PM EDT [facility] MPV 9.4 6.0 - 12.0 fL 04/04/2025 2:56 PM EDT [facility] Platelets 232 140 - 450 10*3/mm3 04/04/2025 2:56 PM EDT [facility] Neutrophil % 74.9 42.7 - 76.0 % 04/04/2025 2:56 PM EDT [facility] Lymphocyte % 13.1(L) 19.6 - 45.3 % 04/04/2025 2:56 PM EDT [facility] Monocyte % 11.2 5.0 - 12.0 % 04/04/2025 2:56 PM EDT [facility] Eosinophil % 0.4 0.3 - 6.2 % 04/04/2025 2:56 PM EDT [facility] Basophil % 0.2 0.0 - 1.5 % 04/04/2025 2:56 PM EDT [facility] Immature Grans % 0.2 0.0 - 0.5 % 04/04/2025 2:56 PM EDT [facility] Neutrophils, Absolute 9.52(H) 1.70 - 7.00 10*3/mm3 04/04/2025 2:56 PM EDT [facility] Lymphocytes, Absolute 1.66 0.70 - 3.10 10*3/mm3 04/04/2025 2:56 PM EDT [facility] Monocytes, Absolute 1.43(H) 0.10 - 0.90 10*3/mm3 04/04/2025 2:56 PM EDT [facility] Eosinophils, Absolute 0.05 0.00 - 0.40 10*3/mm3 04/04/2025 2:56 PM EDT [facility] Basophils, Absolute 0.03 0.00 - 0.20 10*3/mm3 04/04/2025 2:56 PM EDT [facility] Immature Grans, Absolute 0.03 0.00 - 0.05 10*3/mm3 04/04/2025 2:56 PM EDT [facility] nRBC 0.0 0.0 - 0.2 /100 WBC 04/04/2025 2:56 PM EDT [facility] Blood Venipuncture / Unknown 04/04/2025 2:47 PM EDT 04/04/2025 2:52 PM EDT us Mario Crowley DO LAB BLOOD ORDERABLES Fin al Result [facility]
[address] [place] [address], * (ABNORMAL) C-reactive Protein (04/04/2025 2:47 PM EDT) [facility] Signature C-Reactive Protein 8.57(H) 0.00 - 0.50 mg/dL 04/04/2025 3:26 PM EDT [facility] Blood Venipuncture / Unknown 04/04/2025 2:47 PM EDT 04/04/2025 2:52 PM EDT [facility] BLOOD ORDERABLES Fin al Result Performing Organization Address City/[facility]/ZIP Co de Phone Number [facility]
[address] [place] [address], * (ABNORMAL) Sedimentation Rate (04/04/2025 2:47 PM EDT) [facility] Sed Rate 51(H) 0 - 15 mm/hr 04/04/2025 3:06 PM EDT [facility] Blood Venipuncture / Unknown 04/04/2025 2:47 PM EDT 04/04/2025 2:52 PM EDT [facility] BLOOD ORDERABLES Fin al Result Performing Organization Address [facility] Co de Phone Number [facility]
[address] [place] [address], * Comprehensive Metabolic Panel (04/04/2025 2:47 PM EDT) [facility] Glucose 90 65 - 99 mg/dL 04/04/2025 3:26 PM EDT [facility] BUN 18.3 6.0 - 20.0 mg/dL 04/04/2025 3:26 PM EDT [facility] Creatinine 0.94 0.76 - 1.27 mg/dL 04/04/2025 3:26 PM EDT [facility] Sodium 136 136 - 145 mmol/L 04/04/2025 3:26 PM EDT [facility] Potassium 3.8 3.5 - 5.2 mmol/L 04/04/2025 3:26 PM EDT [facility] Chloride 100 98 - 107 mmol/L 04/04/2025 3:26 PM EDT [facility] CO2 25.3 22.0 - 29.0 mmol/L 04/04/2025 3:26 PM EDT [facility] Calcium 8.6 8.6 - 10.5 mg/dL 04/04/2025 3:26 PM T [facility] Total Protein 7.3 6.0 - 8.5 g/dL 04/04/2025 3:26 PM EDT [facility] Albumin 4.1 3.5 - 5.2 g/dL 04/04/2025 3:26 PM T [facility] ALT (SGPT) 26 1 - 41 U/L 04/04/2025 3:26 PM [facility] AST (SGOT) 25 1 - 40 U/L 04/04/2025 3:26 PM [facility] Alkaline Phosphatase 106 39 - 117 U/L 04/04/2025 3:26 PM T [facility] Total Bilirubin 1.0 0.0 - 1.2 mg/dL 04/04/2025 3:26 PM T [facility] Globulin 3.2 gm/dL 04/04/2025 3:26 PM [facility] Comment:Calculated Result A/G Ratio 1.3 g/dL 04/04/2025 3:26 PM [facility] BUN/Creatinine Ratio 19.5 7.0 - 25.0 04/04/2025 3:26 PM [facility] Anion Gap 10.7 5.0 - 15.0 mmol/L 04/04/2025 3:26 PM [facility] eGFR 102.5 >60.0 mL/min/1.7 3 04/04/2025 3:26 PM [facility] Blood Venipuncture / Unknown 04/04/2025 2:47 PM EDT 04/04/2025 2:52 PM EDT Narrative [facility] - 04/04/2025 3:26 PM [...] DO LAB BLOOD ORDERABLES Fin al Result [facility]
[address] [place] [address], documented in this encounter Visit Diagnoses Diagnosis [...] BPA Driven Protocol Open Order & [facility] Electrolyte Replacement Protocol Algorithm to [...] BPA Driven Protocol Open Order [facility] Electrolyte Replacement Protocol Algorithm to [...] Salazar, KELL)1943 (Given - Provider: Anahy Marcelino, TELEVISION ACTOR)2129 (Canceled Entry - Provider: Anahy Marcelino TELEVISION ACTOR - Comment: previously given) 0837 (Given - [...] Hart RN) 09 (New Bag - Provider: Shriley Hart, RN) 1002 (New Bag - Provider: [...] Dillon RN) 2030 (Given - Provider: Alberto Diloln RN) valsartan (DIOVAN) tablet 40 mg 40 [...] Continuous Medication Order 04/09/2025 04/10/2025 04/11/2025 heparin 11223 units/250 mL (100 units/mL) in 0.45 % [...] Provider: Shirley Hart, RN)2033 (Given - Provider: Alberot Dillon, RN)2245 (Given - Provider: Alberto Dillon, [...] BPA Driven Protocol Open Order [facility] Electrolyte Replacement Protocol Algorithm to [...] documented as of this encounter Care Teams Vegetable Farm[employer] Supervisor Relationship Specialty Start Date End Date Provider, [place] [address] PCP - General 05/09/23 documented as of this encounter
--- OUTSIDE RECORDS SUMMARY | 2025-04-07 20:36 | XMS_ITS | Encounter Summary ---
Author Organization [facility] Address [address] [place] [address] Care Team Providers Care Deputy Insurance Commissioner Name Role Phone Provider, No Known Primary Care Provider Unavail able Reason for Visit * Auth/Cert Specialty Diagnoses / Procedures Referred By Bulmaro muniz Referred To Contact Diagnoses Right BKA infection Referral ID Status Reason Start Date Expiration Date Visits Re quested Visits Authorized [id number] 1 1 Encounter Details Date Type Department Care Team (Late st Contact Info) Description 04/07/2025 8:36 PM EDT Anesthesia Event [facility] OR [address] [place] [address] Luci Alonso DO [address] [place] [address] Anesthesia Record Procedure Summary Procedure Name Responsible [...] drink = 0.6 oz pur e alcohol) [facility] Utilities Answer Date Recorded In the past 12 months has [employer], gas, oil, or water [employer] threatened to shut off services in your [...] or training? Not on file Preferred Language Sierra Leonean 04/07/2025 Sex and Gender Information Value Date [...] PACU on O2NC, breathing comfortably. Report to AUTHORIZER at bedside. VSS. * Anesthesia Procedure Notes [...] Musculoskeletal Abdominal Substance History - negative use SIDING APPLICATOR Other ROS/Med Hx Other: Eliquis 04/04/25 Hgb [...] been obtained with: patient. Plan discussed with HALL MONITOR. CODE STATUS: Code Status (Patient has no [...] documented as of this encounter Care Teams Deputy Insurance Commissioner Relationship Specialty Start Date End Date Provider, No Known [facility] [place] [address] PCP - General 05/09/23 documented as of this encounter
--- OUTSIDE RECORDS SUMMARY | 2025-04-08 14:45 | XMS_ITS | Encounter Summary ---
[facility] Address [address] [place] [address] Care Team Providers Care Podiatrist Name Role Phone Provider, No Known Primary Care Provider Unavail able Reason for Visit * Reason Comments Leg Swelling * Auth/Cert Specialty Diagnoses / Procedures Referred By Contac t Referred To Contact Diagnoses Right BKA infection Referral ID Status Reason Start Date Expiration Date Visits Re quested Visits Authorized [id number] 1 1 Encounter Details Date Type Department Care Team (Late st Contact Info) Description 04/08/2025 2:45 PM EDT - 04/08/2025 4:04 PM EDT Surgery [facility] [address] [place] [address] Sushil Dean Jr., MD [address] [place] [address] [address] [id number] LEG DEBRIDEMENT AND IRRIGATION Social History Tobacco Use Types Packs/Day Years Used Date Smoking Tobacco: Never Smokeless Tobacco: Never Tobacco Cessation:Counseling Given: Not Answered Alcohol Use Standard Drinks/Week Comments Not Currently 0 (1 standard drink = 0.6 oz pur e alcohol) [facility] Utilities Answer Date Recorded In the past 12 months has [employer] electric, gas, oil, or water company threatened [...] 2:25 PM EDT Cherri Grimm RN * [place] Suicide Severity Rating Scale (Screener/Recent Self-Report) Question [...] from the original note were not included. [facility] Medicine Services DISCHARGE SUMMARY Patient [...] Date/Time Wound Culture - Swab, Leg, Right [[id number]] (Abnormal) (Susceptibility) Collected: 04/07/252106 Lab Status: Final [...] Units Date/Time FL C Arm During Surgery [[id number]] Resulted: 04/07/252137 Updated: 04/07/252137 Narrative: This procedure was auto-finalized with no dictation required. MRI Tibia Fibula Right With & Without Contrast [[id number]] Collected: 04/07/25 0938 Updated: 04/07/25 1001 Narrative: [...] Buenrostro 04/07/2025 9:58 AM EDT Workstation ID: [id number] MRI Tibia Fibula Right With & Without Contrast [[id number]] Collected: 04/04/252256 Updated: 04/04/252302 Narrative: MRI TIBIA [...] represent a small area of phlegmonous change ([id number] image 10) measuring approximately 1.6 cm which [...] MD 04/04/2025 11:00 PM EDT Workstation ID: [id number] Pending Labs Order Current Status Fungus Culture [...] Male) Date of 1980 Social Security Number [id number] [place] [address] [place] [address] Muslim Unknown Marital Status Unknown Admission Date [...] [id number] Payor Plan Address Payor Plan Phone Number Payor Plan Fax Number Effective Dates [employer] [address] [address] 08/10/2023 - None Entered [facility] [address] Subscriber Name Subscriber Date Member ID WON DENNIS 1980 [id number] Emergency Contacts Director Of Student Affairs (Rel.) Home Phone Work Phone Mobile Phone Avril Dennis (Spouse) -- -- [phone] Robert Hackett (Relative) -- -- [phone] [facility] [address] [facility] [address] [facility]: [facility] Dennis [address] [place] [address] : 1980 SSN: [id number] Sex: M PCP: Provider, No Known Emergency Contact Information Name Relation Home Work Mobile Avril Dennis Spouse [phone] Other Contacts Name Relation Home Work Mobile Robret Hackett Relative [phone] INSURANCE PAYOR PLAN GROUP # SUBSCRIBER ID Primary: Secondary: MEDICARE [place] [id number] Admitting Diagnosis: Right BKA infection [T87.43] Order Date: Apr 09, 2025 Case Management Stator Connector Consult (Order ID: [id number]) Diagnosis: Priority: Routine Expected Date: Expiration Date: [...] INFECTIOUS DISEASE Progress Note Won Dennis 1980 [id number] Date of Consult: 04/10/2025 Admission Date: 04/04/2025 [...] Jr., MD, 20 mg at 04/09/25906 heparin 08154 units/250 mL (100 units/mL) in 0.45 % [...] vancomycin 2750 mg/500 mL 0.9% NS IVPB ([facility]) Ordering Provider: Mario Crowley, DO 20 mg/kg [...] Units Date/Time FL C Arm During Surgery [[id number]] Resulted: 04/07/252137 Updated: 04/07/252137 Narrative: This procedure was auto-finalized with no dictation required. MRI Tibia Fibula Right With & Without Contrast [[id number]] Collected: 04/07/2538 Updated: 04/07/25 1001 Narrative: MRI [...] Buenrostro 04/07/2025 9:58 AM EDT Workstation ID: [id number] Impression: Recurrent Right BKA stump abscess/cellulitis- this [...] discussed his disposition with the pharmacist at [facility] today. I will sign off Outpatient orders: 1. Outpatient intravenous antibiotic therapy: Daptomycin 800 mg IV daily to be supplied by [facility] 2. Home health to perform [...] Creation Time: 04/10/251323 Signed Expand All [facility] Medicine Services PROGRESS NOTE Patient Name: Won [...] Date/Time Wound Culture - Swab, Leg, Right [[id number]] (Abnormal) (Susceptibility) Collected: 04/07/252106 Lab Status: Final [...] Row Name 04/06/25 1143 Sit-Stand Transfer Sit-Stand Sherman (Transfers) modified independence - Comment, (Sit-Stand Transfer) Pt stood from recliner. Not holding onto walker, pt able to pull his pants up while balancing on his one leg. -LM Row Name 04/06/25 1143 Gait/Stairs (Locomotion) Sherman Level (Gait) modified independence - Distance in [...] Motion bilateral lower extremity ROM WFL -LM [facility] Name 04/06/25 1145 Strength Comprehensive (MMT) General Manual Muscle Testing (MMT) Assessment no strength deficits identified BLEs -LM [facility] Name 04/06/25 1145 Balance [...] home at d/c. PT signing off. -LM [facility] Name 04/06/25 1146 Therapy Assessment/Plan (PT) Criteria for Skilled Interventions Met (PT) no;no problems identified which require skilled intervention -LM Therapy Frequency (PT) evaluation only -LM Predicted Duration of Therapy Intervention (PT) Eval Only -LM [facility] Name 04/06/25 1146 Vital Signs Pretreatment Heart Rate (beats/min) 86 -LM Posttreatment Heart Rate (beats/min) 96 -LM Pre SpO2 (%) 95 -LM O2 Delivery Pre Treatment room air -LM Post SpO2 (%) 96 -LM O2 Delivery Post Treatment room air -LM Pre Patient Position Sitting -LM Post Patient Position Sitting -LM [facility] Name 04/06/25 1146 Positioning [...] Nurse Physical Therapy Education Title: PT OT OIL BURNER REPAIRER Therapies (Done) Topic: Physical Therapy (Done) [...] Description Service Date Service Provider Modifiers Qty [id number] PT EVAL LOW COMPLEXITY 3 04/06/2025 Susan [...] mg Daily 04/05/2025 -- Route: Oral heparin 22762 units/250 mL (100 units/mL) in 0.45 % [...] 22 [facility] [address], [address] [facility], [address] Please schedule at [phone] VONDA Garcia 04/11/25 08:32 EDT Cosigned by Sushil Dean Jr., MD at 04/19/2025 10:33 AM EDT Associated attestation - Sushil Dean Jr., MD - 04/19/2025 10:33 AM EDT I have reviewed this documentation and agree. * Rosario Hill APRN - 04/10/2025 1:24 PM EDT Images from the original note were not included. [facility] Medicine Services PROGRESS NOTE Patient [...] Date/Time Wound Culture - Swab, Leg, Right [[id number]] (Abnormal) (Susceptibility) Collected: 04/07/252106 Lab Status: Final [...] mg Daily 04/05/2025 -- Route: Oral heparin 11746 units/250 mL (100 units/mL) in 0.45 % [...] dressing changes: Xeroform, 4 x 4, Kerlix, [place] Ok for discharge from orthopedic standpoint when medically appropriate Follow-up in 2 weeks for incision check, radiographs Follow up with Sushil Dean MD April 21 vs April 22 [facility] [address] [facility], [address] [facility], [address] Please schedule at [phone] VONDA Garcia 04/10/25 09:01 EDT Cosigned by Sushil Dean Jr., MD at 04/19/2025 10:33 AM EDT Associated attestation - Sushil Dean Jr., MD - 04/19/2025 10:33 AM EDT I have reviewed this documentation and agree. * Carlton Mead MD - 04/10/2025 7:38 AM EDT Images from the original note were not included. INFECTIOUS DISEASE Progress Note Won Dennis 1980 [id number] Date of Consult: 04/10/2025 Admission Date: 04/04/2025 [...] IRRIGATION; Surgeon: Sushil Dean Jr., MD; Location: [facility]; Service: Orthopedics; Laterality: Right; PLACEMENT OF WOUND VAC Right 04/07/2025 Procedure: WOUND VACUUM ASSISTED CLOSURE; Surgeon: Sushil Dean Jr., MD; Location: [facility]; Service: Orthopedics; Laterality: Right; WOUND CLOSURE [...] Jr., MD, 20 mg at 04/09/25906 heparin 60401 units/250 mL (100 units/mL) in 0.45 % [...] mg, 0.4 mg, Intravenous, Q5 Min PRN, Beniot Dean Jr., MD nitroglycerin (NITROSTAT) SL tablet [...] Units Date/Time FL C Arm During Surgery [[id number]] Resulted: 04/07/252137 Updated: 04/07/252137 Narrative: This procedure was auto-finalized with no dictation required. MRI Tibia Fibula Right With & Without Contrast [[id number]] Collected: 04/07/25937 Updated: 04/07/25 100 Narrative: MRI [...] Buenrostro 04/07/2025 9:58 AM EDT Workstation ID: [id number] Impression: Recurrent Right BKA stump abscess/cellulitis- this [...] discussed his disposition with the pharmacist at [facility] today. I will sign off Outpatient orders: 1. Outpatient intravenous antibiotic therapy: Daptomycin 800 mg IV daily to be supplied by [facility] 2. Home health to perform [...] from the original note were not included. [facility] Medicine Services PROGRESS NOTE Patient [...] Date/Time Wound Culture - Swab, Leg, Right [[id number]] (Abnormal) Collected: 04/07/252106 Lab Status: Preliminary result [...] Level Of Support Discussed With: Patient Jason Álvraez DO 04/09/25 * Larisa Hamilton [facility] [...] -- Admin Instructions: Open Order & [facility] Electrolyte Replacement Protocol Algorithm to View Details [...] mg Daily 04/05/2025 -- Route: Oral heparin 44048 units/250 mL (100 units/mL) in 0.45 % [...] -- Admin Instructions: Open Order & [facility] Electrolyte Replacement Protocol Algorithm to View Details [...] radiographs [facility] [address] [facility], [address] [facility], [address] Please schedule at [phone] VONDA Garcia 04/09/25 09:18 EDT Cosigned by Sushil Dean Jr., MD at 04/19/2025 10:33 AM EDT Associated attestation - Sushil Dean Jr., MD - 04/19/2025 10:33 AM EDT I have reviewed this documentation and agree. * Carlton Mead MD - 04/09/2025 8:25 AM EDT Images from the original note were not included. INFECTIOUS DISEASE Progress Note Won Dennis 1980 [id number] Date of Consult: 04/09/2025 Admission Date: 04/04/2025 [...] Dean Jr., MD; Location: [facility]; Service: Orthopedics; Laterality: Right; PLACEMENT OF WOUND [...] MD, 20 mg at 04/08/25 0800 heparin 74173 units/250 mL (100 units/mL) in 0.45 % [...] Not Applicable, PRN, Sushil Dena Jr., MD [COMPLETED] HYDROmorphone (DILAUDID) injection 1 [...] Units Date/Time FL C Arm During Surgery [[id number]] Resulted: 04/07/252137 Updated: 04/07/252137 Narrative: This procedure was auto-finalized with no dictation required. MRI Tibia Fibula Right With & Without Contrast [[id number]] Collected: 04/07/25 0938 Updated: 04/07/25 1001 Narrative: [...] Chitra 04/07/2025 9:58 AM EDT Workstation ID: [id number] Impression: Recurrent Right BKA stump abscess/cellulitis- this [...] from the original note were not included. [facility] Medicine Services PROGRESS NOTE Patient [...] Buenrostro 04/07/2025 9:58 AM EDT Workstation ID: [id number] I have personally reviewed the therapy plans: [...] -- Admin Instructions: Open Order & [facility] Electrolyte Replacement Protocol Algorithm to View Details [...] mg Daily 04/05/2025 -- Route: Oral heparin 58787 units/250 mL (100 units/mL) in 0.45 % [...] INFECTIOUS DISEASE Progress Note Won Dennis 1980 [id number] Date of Consult: 04/08/2025 Admission Date: 04/04/2025 [...] Jr., MD, 20 mg at 04/07/25950 heparin 85219 units/250 mL (100 units/mL) in 0.45 % [...] vancomycin 2750 mg/500 mL 0.9% NS IVPB ([facility]) Ordering Provider: Mario Crowley, DO 20 mg/kg [...] Units Date/Time FL C Arm During Surgery [[id number]] Resulted: 04/07/252137 Updated: 04/07/252137 Narrative: This procedure was auto-finalized with no dictation required. 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 (Treated by ID in [place] Dr. Harris). Dr. Torres treated him with [...] from the original note were not included. [facility] Medicine Services PROGRESS NOTE Patient [...] Buenrostro 04/07/2025 9:58 AM EDT Workstation ID: [id number] I have personally reviewed the therapy plans: [...] INFECTIOUS DISEASE Progress Note Won Dennis 1980 [id number] Date of Consult: 04/07/2025 Admission Date: 04/04/2025 [...] MD, 20 mg at 04/06/25 0900 heparin 10404 units/250 mL (100 units/mL) in 0.45 % [...] With & Without Contrast - In process [[id number]] Resulted: 04/07/25828 Updated: 04/07/25828 This result has not been signed. Information might be incomplete. 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 (Treated by ID in [place] Dr. Harris). Dr. Torres treated him with [...] -- Admin Instructions: Open Order & [facility] Electrolyte Replacement Protocol Algorithm to View Details [...] mg Daily 04/05/2025 -- Route: Oral heparin 57508 units/250 mL (100 units/mL) in 0.45 % [...] -- Admin Instructions: Open Order & [facility] Electrolyte Replacement Protocol Algorithm to View Details [...] from the original note were not included. [facility] Medicine Services PROGRESS NOTE Patient [...] MD 04/04/2025 11:00 PM EDT Workstation ID: [id number] I have personally reviewed the therapy plans: [...] mg Daily 04/05/2025 -- Route: Oral heparin 09464 units/250 mL (100 units/mL) in 0.45 % [...] -- Admin Instructions: Open Order & [facility] Electrolyte Replacement Protocol Algorithm to View Details [...] -- Admin Instructions: Open Order & [facility] Electrolyte Replacement Protocol Algorithm to View Details [...] INFECTIOUS DISEASE follow up. 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 (Treated by ID in [place] Dr. Harris). Dr. Torres treated him with [...] from the original note were not included. [facility] Medicine Services PROGRESS NOTE Patient [...] MD 04/04/2025 11:00 PM EDT Workstation ID: [id number] I have personally reviewed the therapy plans: [...] from the original note were not included. [facility] Medicine Services HISTORY AND PHYSICAL [...] MD 04/04/2025 11:00 PM EDT Workstation ID: [id number] Assessment & Plan Assessment & Plan Won [...] 4FR PICC placed by Rhoda Bonner RN [facility], tip verified by 3CG see LDA. * Sushil Dean Jr., MD - 04/05/2025 8:07 AM EDTAssociated Order(s): IP CONSULT TO ORTHOPEDIC SURGERY [facility], [facility] [address] [address] Orthopedic Consult Patient: Won Dennis Date of [...] was evaluated in the emergency department in [place], was discharged with instructions for follow-up. He [...] mouth Daily. 04/03/2025 Morning Lactobacillus-Inulin ([facility]) capsule Take 200 mg by mouth Daily. [...] MD 04/04/2025 11:00 PM EDT Workstation ID: [id number] Assessment: Right BKA infection 44-year-old male with [...] DISEASE CONSULT/INITIAL HOSPITAL VISIT Won Dennis 1980 [id number] Date of Consult: 04/05/2025 Admission Date: 04/04/2025 [...] Leonora Shepherd MD, 40 mg at 04/04/25 9996 sennosides-docusate (PERICOLACE) 8.6-50 MG per tablet 2 [...] MD, 20 mg at 04/05/25 09 heparin 29765 units/250 mL (100 units/mL) in 0.45 % [...] Leonora Shepherd MD, 10 mg at 04/04/25 8158 Pharmacy to Dose Heparin, , Not Applicable, [...] Nightly, Leonora Shpeherd MD, 100 mg at 04/04/252358 [COMPLETED] Insert [...] Tibia Fibula Right With & Without Contrast [[id number]] Collected: 04/04/252256 Updated: 04/04/252302 Narrative: MRI TIBIA [...] represent a small area of phlegmonous change ([id number] image 10) measuring approximately 1.6 cm which [...] MD 04/04/2025 11:00 PM EDT Workstation ID: [id number] Impression: Right BKA stump cellulitis- s/p BKA with multiple surgical interventions with Known MRSA 05/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 (Treated by ID in [facility] Dr. Harris). Dr. Torres treated him with [...] HOB at 30-45 degrees Taken 04/08/20251942 by oBb Rosenberg RN Activity Management: activity encouraged Pressure [...] Jr., MD - 04/08/2025 3:51 PM EDT [facility] OPERATIVE REPORT PATIENT NAME: Won Dennis DATE OF : 1980 PREOP DIAGNOSIS: Right Right below-knee amputation infection POSTOP DIAGNOSIS: Same. PROCEDURE: Right Right 71623: Secondary closure below-knee amputation SURGEON: Sushil Dean MD OPERATIVE TEAM: Press Machine Operator: Susi Grullon RN Scrub Person: Mary Paredes Scrub Person Extra: Hortencia Toribio Other: Katt Gotti RN; Charis Neville RN ANESTHETIST: Anesthesiologist: Ulises Hoffman MD WASH BOX OPERATOR: Stan Casillas CRNA Student Nurse Senior Animator: Karol Albert SRNA ANESTHESIA: Choice ESTIMATED BLOOD [...] CULTURE (Canceled) Sushil Dean Jr., MD 04/08/25 2390 Description: RIGHT LEG DEEP WOUND FOR CULTURE [...] PM EDT [facility], [place] [address] OPERATIVE REPORT PATIENT NAME: Won Dennis DATE OF : 1980 PREOP DIAGNOSIS: Right Right below knee amputation stump infection POSTOP DIAGNOSIS: Same. PROCEDURE: Right Right 20909: Incision and drainage of surgical site infection 29662: Debridement of skin, subcutaneous tissue, muscle 31790: Wound vacuum-assisted closure SURGEON: Sushil Dean MD OPERATIVE TEAM: Press Machine Operator: Anum Sanchez RN Scrub Person: Hortencia Toribio; Gerald Ivey EXECUTIVE TALENT ACQUISITION CONSULTANT: Anesthesiologist: Luci Alonso DO ANESTHESIA: General [...] this chart in the absence of a cloth examiner. No orders to display RADIOLOGY: [x] Radiologist's [...] has spoke with Dena at [facility] today multiple times to get setup due [...] with KELLEE and given themhis Medicare number [id number], she sent it to Admission. DEBRA spoke with Kerri, with [facility], and explained that he had Medicare A and B. However, it will not cover home infusion. It will be $64.00 a day out of packet. Patients can go to the Infusion center at [facility], and it will cover [...] over to [facility] at [phone]. CM will follow up with them tomorrow [...] 04/09/2025 2:51 PM EDT Continued Stay Note [facility] Patient Name: Won Dennis Today's Date: 04/09/2025 Admit Date: 04/04/2025 Plan: Home Discharge Plan Row Name 04/09/25 1311 Plan Plan Home Patient/Family in Agreement with Plan yes Plan Comments CM spoke with patient at bedside today. Wheelchair from [employer] is at bedside. Patient getting PICC line [...] note were not included. Discharge Planning Assessment [facility] Patient Name: Won Dennis Today's [...] Patient/Family Anticipated Services at Transition case resource managerclinical trial data manager Anticipated family or friend [...] for home. CM will order wheelchair [facility] He is not current with home [...] General Information Arrived From hospital Preferred Language Wallisian Functional Status Row Name 04/07/25 1143 Functional [...] 5.80 10*6/mm3 04/11/2025 4:02 AM [facility] Hemoglobin 12.8(L) 13.0 - 17.7 g/dL 04/11/2025 4:02 AM [facility] Hematocrit 40.5 37.5 - 51.0 % 04/11/2025 4:02 AM [facility] MCV 86.2 79.0 - 97.0 fL 04/11/2025 4:02 AM [facility] MCH 27.2 26.6 - 33.0 pg 04/11/2025 4:02 AM [facility] MCHC 31.6 31.5 - 35.7 g/dL 04/11/2025 4:02 AM [facility] RDW 12.9 12.3 - 15.4 % 04/11/2025 4:02 AM [facility] RDW-SD 40.5 37.0 - 54.0 fl 04/11/2025 4:02 AM [facility] MPV 9.2 6.0 - 12.0 fL 04/11/2025 4:02 AM [facility] Platelets 267 140 - 450 10*3/mm3 04/11/2025 4:02 AM [facility] Neutrophil % 59.5 42.7 - 76.0 % 04/11/2025 4:02 AM [facility] Lymphocyte % 26.3 19.6 - 45.3 % 04/11/2025 4:02 AM [facility] Monocyte % 9.3 5.0 - 12.0 % 04/11/2025 4:02 AM [facility] Eosinophil % 4.1 0.3 - 6.2 % 04/11/2025 4:02 AM [facility] Basophil % 0.4 0.0 - 1.5 % 04/11/[facility]25 4:[facility] Immature Grans % 0.4 0.0 - 0.5 % 04/11/2025 4:02 AM EDT [facility] Neutrophils, Absolute 4.69 1.70 - 7.00 [...] Fi nal Result [facility]
[address] [place] [address], * (ABNORMAL) Comprehensive Metabolic Panel (04/11/2025 3:40 AM EDT) Glucose 108(H) 65 - 99 mg/dL 04/11/2025 4:19 AM EDT [facility] BUN 12.5 6.0 - 20.0 mg/dL 04/11/2025 4:19 AM EDT [facility] Creatinine 0.68(L) 0.76 - 1.27 mg/dL 04/11/2025 4:19 AM [facility] Sodium 140 136 - 145 mmol/L 04/11/2025 4:19 AM [facility] Potassium 3.8 3.5 - 5.2 mmol/L 04/11/2025 4:19 AM [facility] Chloride 105 98 - 107 mmol/L 04/11/2025 4:19 AM [facility] CO2 28.2 22.0 - 29.0 mmol/L 04/11/2025 4:19 AM [facility] Calcium 8.2(L) 8.6 - 10.5 mg/dL 04/11/2025 4:19 AM [facility] Total Protein 6.1 6.0 - 8.5 g/dL 04/11/2025 4:19 AM [facility] Albumin 3.1(L) 3.5 - 5.2 g/dL 04/11/2025 4:19 AM [facility] ALT (SGPT) 52(H) 1 - 41 U/L 04/11/2025 4:19 AM [facility] AST (SGOT) 40 1 - 40 U/L 04/11/2025 4:19 AM [facility] Alkaline Phosphatase 99 39 - 117 U/L 04/11/2025 4:19 AM [facility] Total Bilirubin 0.2 0.0 - 1.2 mg/dL 04/11/2025 4:19 AM [facility] Globulin 3.0 gm/dL 04/11/2025 4:19 AM [facility] Comment:Calculated Result A/G Ratio 1.0 g/dL 04/11/2025 4:19 AM [facility] BUN/Creatinine Ratio 18.4 7.0 - 25.0 04/11/2025 4:19 AM [facility] Anion Gap 6.8 5.0 - 15.0 mmol/L 04/11/2025 4:19 AM [facility] eGFR 117.5 >60.0 mL/min/1.7 3 04/11/2025 [...] ORDERABLES Final Result [facility]
[address] [place] [address], * (ABNORMAL) CBC Auto Differential (04/10/2025 3:46 [...] 26.6 - 33.0 pg [facility]/10/2025 3:56 [facility] MCHC 32.2 31.5 - 35.7 g/dL 04/10/2025 3:56 AM EDT [facility] RDW 12.9 12.3 - 15.4 % 04/10/2025 3:[facility] RDW-SD 40.5 37.0 - 54.0 fl 04/10/2025 3:56 AM EDT [facility] MPV 9.5 6.0 - 12.0 fL 04/10/2025 3:56 AM EDT [facility] Platelets 227 140 - 450 10*3/mm3 04/10/2025 3:56 AM [facility] Neutrophil % 59.1 42.7 - 76.0 % 04/10/2025 3:56 AM [facility] Lymphocyte % 29.0 19.6 - 45.3 % 04/10/2025 3:56 [facility] Monocyte % 8.1 5.0 - 12.0 % 04/10/2025 3:56 AM [facility] Eosinophil % 3.2 0.3 - 6.2 % 04/10/2025 3:56 AM [facility] Basophil % 0.4 0.0 - 1.5 % 04/10/2025 3:56 AM [facility] Immature Grans % 0.2 0.0 - 0.5 % 04/10/2025 3:56 [facility] Neutrophils, Absolute 5.67 1.70 - 7.00 10*3/mm3 04/10/2025 3:56 AM [facility] Lymphocytes, Absolute 2.78 0.70 - 3.10 10*3/mm3 04/10/2025 3:56 AM [facility] Monocytes, Absolute 0.78 0.10 - 0.90 10*3/mm3 04/10/2025 3:56 AM [facility] Eosinophils, Absolute 0.31 0.00 - 0.40 10*3/mm3 04/10/2025 3:56 AM EDT [facility] Basophils, Absolute 0.04 0.00 - 0.20 [...] Final Resul t [facility]
[address] [place] [address], * (ABNORMAL) Basic Metabolic Panel (04/10/2025 3:46 [...] Final Resul t [facility]
[address] [place] [address], * Heparin Anti-Xa (04/10/2025 3:46 AM EDT) Heparin Anti-Xa (UFH) 0.35 0.30 - 0.70 IU/ml 04/10/2025 4:23 AM EDT [facility] Blood Venipuncture / Unknown 04/10/2025 3:46 AM EDT 04/10/2025 3:53 AM EDT Larisa Hamilton [facility] LAB BLOOD ORDERABLES Final R esult [facility]
[address] [place] [address], * Heparin Anti-Xa (04/09/2025 10:05 AM EDT) Pathologist [facility] Heparin Anti-Xa (UFH) 0.36 0.30 - 0.70 IU/ml 04/09/2025 11:12 AM EDT [facility] Blood Venipuncture / Unknown 04/09/2025 10:05 AM EDT 04/09/2025 10:47 AM EDT Larisa Hamilton [facility] LAB BLOOD ORDERABLES Final R esult [facility]
[address] [place] [address], * (ABNORMAL) CBC Auto Differential (04/09/2025 4:18 AM EDT) Pathologist [facility] WBC 11.00(H) 3.40 - 10.80 [...] 15.4 % 04/09/2025 4:50 AM [facility] RDW-SD 39.9 37.0 - 54.0 fl 04/09/2025 4:50 AM [facility] MPV 10.0 6.0 - 12.0 fL 04/09/2025 4:50 AM [facility] Platelets 211 140 - 450 10*3/mm3 04/09/2025 4:50 AM [facility] Neutrophil % 74.8 42.7 - 76.0 % 04/09/2025 4:50 AM [facility] Lymphocyte % 15.4(L) 19.6 - 45.3 % 04/09/2025 4:50 AM [facility] Monocyte % 8.5 5.0 - 12.0 % 04/09/2025 4:50 AM [facility] Eosinophil % 0.6 0.3 - 6.2 % 04/09/2025 4:50 AM [facility] Basophil % 0.4 0.0 - 1.5 % 04/09/2025 4:50 AM [facility] Immature Grans % 0.3 0.0 - 0.5 % 04/09/2025 4:50 AM [facility] Neutrophils, Absolute 8.23(H) 1.70 - 7.00 10*3/mm3 04/09/2025 4:50 AM [facility] Lymphocytes, Absolute 1.69 0.70 - 3.10 10*3/mm3 04/09/2025 4:50 AM [facility] Monocytes, Absolute 0.94(H) 0.10 - 0.90 10*3/mm3 04/09/2025 4:50 AM [facility] Eosinophils, Absolute 0.07 0.00 - 0.40 10*3/mm3 04/09/2025 4:50 [facility] Basophils, Absolute 0.04 0.00 - 0.20 10*3/mm3 04/09/2025 4:50 AM EDT [facility] Immature Grans, Absolute 0.03 0.00 - 0.05 10*3/mm3 04/09/2025 4:50 AM EDT [facility] nRBC 0.0 0.0 - 0.2 /100 WBC 04/09/2025 4:50 AM EDT [facility] Blood Venipuncture / Unknown 04/09/2025 4:18 AM EDT 04/09/2025 4:31 AM EDT Sushil Dean Jr., MD LAB BLOOD ORDERABLES Fi nal Result Performing Organization Address City/[facility]/ZIP Co de Phone Number [facility]
[address] [place] [address], * Heparin Anti-Xa (04/09/2025 4:18 AM EDT) Heparin Anti-Xa (UFH) 0.41 0.30 - 0.70 IU/ml 04/09/2025 4:53 AM EDT [facility] Blood Venipuncture / Unknown 04/09/2025 4:18 AM EDT 04/09/2025 4:31 AM EDT Una LundbergD LAB BLOOD ORDERABLES Final R esult [facility]
[address] [place] [address], * (ABNORMAL) Basic Metabolic Panel (04/09/2025 4:18 [...] nal Result [facility]
[address] [place] [address], * Wound Culture - Swab, Leg, Right [...] GENERAL ORDERABLES Final Result Performing Organization Address City/[facility]/ZIP Co de Phone Number [facility]
[address] [place] [address], [facility]
[address] [place] [address], * Anaerobic Culture - Swab, Leg, Right (04/08/2025 3:40 PM EDT) Anaerobic Culture No anaerobes isolated at 5 days ALIZA 04/13/2025 7:24 AM EDT [facility] Swab Structure of right lower limb / Unknown 04/08/2025 3:40 PM EDT 04/08/2025 8:05 PM EDT us Sushil Dean Jr., MD MICROBIOLOGY - GENERAL ORDERABLES Final Result Performing Organization Address City/[facility]/ZIP Co de Phone Number [facility]
[address] [place] [address], * Scan Slide (04/08/2025 8:41 AM EDT) [...] Final R esult [facility]
[address] [place] [address], * (ABNORMAL) CBC Auto Differential (04/08/2025 8:41 [...] 54.0 fl 04/08/2025 11:02 AM [facility] MPV 11.0 6.0 - 12.0 fL 04/08/2025 11:02 AM [facility] Platelets 118(L) 140 - 450 10*3/mm3 04/08/2025 11:02 AM [facility] Neutrophil % 85.1(H) 42.7 - 76.0 % 04/08/2025 11:02 AM [facility] Lymphocyte % 9.3(L) 19.6 - 45.3 % 04/08/2025 11:02 AM [facility] Monocyte % 4.6(L) 5.0 - 12.0 % 04/08/2025 11:02 AM [facility] Eosinophil % 0.3 0.3 - 6.2 % 04/08/2025 11:02 AM [facility] Basophil % 0.2 0.0 - 1.5 % 04/08/2025 11:02 AM [facility] Immature Grans % 0.5 0.0 - 0.5 % 04/08/2025 11:02 AM [facility] Neutrophils, Absolute 8.57(H) 1.70 - 7.00 10*3/mm3 04/08/2025 11:02 AM [facility] Lymphocytes, Absolute 0.94 0.70 - 3.10 10*3/mm3 04/08/2025 11:02 AM [facility] Monocytes, Absolute 0.46 0.10 - 0.90 10*3/mm3 04/08/2025 11:02 AM [facility] Eosinophils, Absolute 0.03 0.00 - 0.40 10*3/mm3 04/08/2025 11:02 AM [facility] Basophils, Absolute 0.02 0.00 - 0.20 10*3/mm3 04/08/2025 11:02 AM [facility] Immature Grans, Absolute 0.05 0.00 - 0.05 10*3/mm3 04/08/2025 11:02 AM EDT [facility] nRBC 0.0 0.0 - 0.2 /100 WBC 04/08/2025 11:02 AM EDT [facility] Blood Venipuncture / Unknown 04/08/2025 8:41 AM EDT 04/08/2025 9:10 AM EDT Una Perla PharmD LAB BLOOD ORDERABLES Final R esult [facility]
[address] [place] [address], * (ABNORMAL) Basic Metabolic Panel (04/08/2025 8:41 [...] ORDERABLES Fi nal Result Performing Organization Address City/[facility]/ZIP Co de Phone Number [facility]
[address] [place] [address], * Heparin Anti-Xa (04/08/2025 8:41 AM EDT) Heparin Anti-Xa (UFH) 0.33 0.30 - 0.70 IU/ml 04/08/2025 9:40 AM EDT [facility] Blood Venipuncture / Unknown 04/08/2025 8:41 AM EDT 04/08/2025 9:10 AM EDT Sushil Dean Jr., MD LAB BLOOD ORDERABLES Fi nal Result Performing Organization Address City/[facility]/ZIP Co de Phone Number [facility]
[address] [place] [address], * [place] C Arm During Surgery (04/07/2025 [...] GENERAL ORDERABLES Final Result Performing Organization Address City/[facility]/ZIP Co de Phone Number [facility]
[address] [place] [address], [place] [phone] [facility]
[address] [place] [address], [place] [phone] * Anaerobic Culture - Swab, Leg, Right (04/07/2025 9:14 PM EDT) Anaerobic Culture No anaerobes isolated at 5 days ALIZA 04/13/2025 7:21 AM EDT [facility] Swab Structure of right lower limb / Unknown Collection / Unknown 04/07/2025 9:14 PM EDT 04/08/2025 4:36 AM EDT us Sushil Dean Jr., MD MICROBIOLOGY - GENERAL ORDERABLES Final Result [facility]
[address] [place] [address], * Anaerobic Culture - Tissue, Leg (04/07/2025 9:13 PM EDT) Anaerobic Culture No anaerobes isolated at 5 days ALIZA 04/13/2025 7:21 AM EDT [facility] Tissue Lower limb structure / Unknown Collection / Unknown 04/07/2025 9:13 PM EDT 04/08/2025 4:54 AM EDT Jason Álvarez DO MICROBIOLOGY - GENERAL ORDERABLE S Final Result Performing Organization Address [facility]/State/ZIP Co de Phone Number [facility]
[address] [place] [address], * Tissue / Bone Culture - Tissue, [...] Final Result [facility]
[address] [place] [address], [facility]
[address] [place] [address], [place] [phone] * (ABNORMAL) Wound Culture - Swab, Leg, [...] Final Result [facility]
[address] [place] [address], [place] [phone] [facility]
[address] [place] [address], [place] [phone] * Anaerobic Culture - Swab, Leg, Right [...] Result [facility]
[address] [place] [address], * Heparin Anti-Xa (04/07/2025 9:10 AM EDT) Pathologist [facility] Heparin Anti-Xa (UFH) 0.30 0.30 - 0.70 IU/ml 04/07/2025 10:12 AM EDT [facility] Blood Venipuncture / Unknown 04/07/2025 9:10 AM EDT 04/07/2025 9:38 AM EDT Una Perla PharmD LAB BLOOD ORDERABLES Final R esult Performing Organization Address City/[facility]/ZIP Co de Phone Number [facility]
[address] [place] [address], * (ABNORMAL) CBC Auto Differential (04/07/2025 9:10 [...] 15.4 % 04/07/2025 9:50 AM [facility] RDW-SD 39.9 37.0 - 54.0 fl 04/07/2025 9:50 AM [facility] MPV 10.8 6.0 - 12.0 fL 04/07/2025 9:50 AM [facility] Platelets 149 140 - 450 10*3/mm3 04/07/2025 9:50 AM [facility] Neutrophil % 66.7 42.7 - 76.0 % 04/07/2025 9:50 AM [facility] Lymphocyte % 20.5 19.6 - 45.3 % 04/07/2025 9:50 AM [facility] Monocyte % 9.8 5.0 - 12.0 % 04/07/2025 9:50 AM [facility] Eosinophil % 2.1 0.3 - 6.2 % 04/07/2025 9:50 AM [facility] Basophil % 0.3 0.0 - 1.5 % 04/07/2025 9:50 AM [facility] Immature Grans % 0.6(H) 0.0 - 0.5 % 04/07/2025 9:50 AM [facility] Neutrophils, Absolute 5.75 1.70 - 7.00 10*3/mm3 04/07/2025 9:50 AM [facility] Lymphocytes, Absolute 1.77 0.70 - 3.10 10*3/mm3 04/07/2025 9:50 AM [facility] Monocytes, Absolute 0.85 0.10 - 0.90 10*3/mm3 04/07/2025 9:50 AM [facility] Eosinophils, Absolute 0.18 0.00 - 0.40 10*3/mm3 04/07/2025 9:50 AM [facility] Basophils, Absolute 0.03 0.00 - 0.20 10*3/mm3 04/07/2025 9:50 AM [facility] Immature Grans, Absolute 0.05 0.00 - 0.05 10*3/mm3 04/07/2025 9:50 AM EDT [facility] nRBC 0.0 0.0 - 0.2 /100 WBC 04/07/2025 9:50 AM EDT [facility] Blood Venipuncture / Unknown 04/07/2025 9:10 AM EDT 04/07/2025 9:38 AM EDT us Jason Álvarez DO LAB BLOOD ORDERABLES Final Resul t [facility]
[address] [place] [address], * (ABNORMAL) Basic Metabolic Panel (04/07/2025 9:10 [...] Final Resul t [facility]
[address] [place] [address], * MRI Tibia Fibula Right With & [...] [place] 04/07/2025 9:58 AM EDT Workstation ID: [id number] Narrative 04/07/2025 9:58 AM EDT MRI TIBIA [...] [place] 04/07/2025 9:58 AM EDT Workstation ID: [id number] Sushil Dean Jr., MD IMG MRI ORDERABLES Mary Beth l Result * Heparin Anti-Xa (04/07/2025 1:42 AM EDT) [facility] Heparin Anti-Xa (UFH) 0.38 0.30 - 0.70 IU/ml 04/07/2025 2:14 AM EDT [facility] Blood Venipuncture / Unknown 04/07/2025 1:42 AM EDT 04/07/2025 1:54 AM EDT Chelsie Turpin [facility] LAB BLOOD ORDERABLES Final R esult [facility]
[address] [place] [address], * Heparin Anti-Xa (04/06/2025 7:16 PM EDT) [facility] Heparin Anti-Xa (UFH) 0.33 0.30 - 0.70 IU/ml 04/06/2025 7:50 PM EDT [facility] Blood Venipuncture / Unknown 04/06/2025 7:16 PM EDT 04/06/2025 7:35 PM EDT Cherri Beatty [facility] LAB BLOOD ORDERABLES Final Res ult Performing Organization Address [facility] Co de Phone Number [facility]
[address] [place] [address], * Potassium (04/06/2025 7:16 PM EDT) [facility] Potassium 4.0 3.5 - 5.2 mmol/L 04/06/2025 7:53 PM EDT [facility] Blood Venipuncture / Unknown 04/06/2025 7:16 PM EDT 04/06/2025 7:35 PM EDT Jason Álvarez DO LAB BLOOD ORDERABLES Final Resul t Performing Organization Address [facility] de Phone Number [facility]
[address] [place] [address], * (ABNORMAL) Heparin Anti-Xa (04/06/2025 12:36 PM EDT) [facility] Heparin Anti-Xa (UFH) 0.24(L) 0.30 - 0.70 IU/ml 04/06/2025 1:23 PM EDT [facility] Blood Venipuncture / Unknown 04/06/2025 12:36 PM EDT 04/06/2025 1:07 PM EDT Una Perla PharmD LAB BLOOD ORDERABLES Final R esult Performing Organization Address [facility] Co de Phone Number [facility]
[address] [place] [address], * (ABNORMAL) Heparin Anti-Xa (04/06/2025 3:42 AM EDT) [facility] Heparin Anti-Xa (UFH) 0.25(L) 0.30 - 0.70 IU/ml 04/06/2025 5:30 AM EDT [facility] Blood Venipuncture / Unknown 04/06/2025 3:42 AM EDT 04/06/2025 4:59 AM EDT Chelsie Dyana [facility] LAB BLOOD ORDERABLES Final R esult [facility]
[address] [place] [address], * (ABNORMAL) Basic Metabolic Panel (04/06/2025 3:42 AM EDT) [facility] Glucose 94 65 - 99 mg/dL [...] Final Resul t [facility]
[address] [place] [address], * (ABNORMAL) CBC Auto Differential (04/06/2025 3:41 [...] 79.0 - 97.0 fL 04/06/2025 5:04 [facility] MCH 27.4 26.6 - 33.0 pg 04/06/2025 5:04 AM [facility] MCHC 31.8 31.5 - 35.7 g/dL 04/06/2025 5:04 AM [facility] RDW 12.8 12.3 - 15.4 % 04/06/2025 5:04 AM [facility] RDW-SD 40.0 37.0 - 54.0 fl 04/06/2025 5:04 AM [facility] MPV 11.7 6.0 - 12.0 fL 04/06/2025 5:04 AM [facility] Platelets 115(L) 140 - 450 10*3/mm3 04/06/2025 5:04 AM [facility] Neutrophil % 65.3 42.7 - 76.0 % 04/06/2025 5:04 AM [facility] Lymphocyte % 20.5 19.6 - 45.3 % 04/06/2025 5:04 AM [facility] Monocyte % 11.8 5.0 - 12.0 % 04/06/2025 5:04 AM [facility] Eosinophil % 1.8 0.3 - 6.2 % 04/06/2025 5:04 AM [facility] Basophil % 0.3 0.0 - 1.5 % 04/06/2025 5:04 AM [facility] Immature Grans % 0.3 0.0 - 0.5 % 04/06/2025 5:04 AM [facility] Neutrophils, Absolute 7.09(H) 1.70 - 7.00 10*3/mm3 04/06/2025 5:04 AM [facility] Lymphocytes, Absolute 2.23 0.70 - 3.10 10*3/mm3 04/06/2025 5:04 AM [facility] Monocytes, Absolute 1.28(H) 0.10 [...] ORDERABLES Final Resul t Performing Organization Address City/[facility] Co de Phone Number [facility]
[address] [place] [address], [place] [phone] * Heparin Anti-Xa (04/05/2025 8:43 PM EDT) Pathologist [facility] Heparin Anti-Xa (UFH) 0.38 0.30 - 0.70 IU/ml 04/05/2025 9:09 PM EDT [facility] Blood Venipuncture / Unknown 04/05/2025 8:43 PM EDT 04/05/2025 8:55 PM EDT us Cherri Beatty [facility] LAB BLOOD ORDERABLES Final Res ult Performing Organization Address City/[facility] Co de Phone Number [facility]
[address] [place] [address], [place] [phone] * CK (04/05/2025 12:15 PM EDT) Creatine Kinase 140 20 - 200 U/L 04/05/2025 1:31 PM EDT [facility] Blood Venipuncture / Unknown 04/05/2025 12:15 PM EDT 04/05/2025 1:03 PM EDT Carlton Mead MD LAB BLOOD ORDERABLES Final R esult Performing Organization Address City/[facility]/ZIP Co de Phone Number [facility]
[address] [place] [address], * (ABNORMAL) Heparin Anti-Xa (04/05/2025 12:15 PM EDT) [facility] Heparin Anti-Xa (UFH) 0.17(L) 0.30 - 0.70 IU/ml 04/05/2025 1:21 PM EDT [facility] Blood Venipuncture / Unknown 04/05/2025 12:15 PM EDT 04/05/2025 1:04 PM EDT Una Perla PharmD LAB BLOOD ORDERABLES Final R esult Performing Organization Address City/[facility] Co de Phone Number [facility]
[address] [place] [address], * (ABNORMAL) aPTT (04/05/2025 3:54 AM EDT) [facility] PTT 35.3(L) 60.0 - 90.0 seconds 04/05/2025 4:31 AM EDT [facility] Blood Venipuncture / Unknown 04/05/2025 3:54 AM EDT 04/05/2025 4:15 AM EDT Narrative [facility] - 04/05/2025 4:31 AM EDT PTT = The equivalent PTT values for the therapeutic range of heparin levels at 0.3 to 0.5 U/ml are 60 to 70 seconds. For Your ImaginationD LAB BLOOD ORDERABLES Final R esult [facility]
[address] [place] [address], * Heparin Anti-Xa (04/05/2025 3:54 AM EDT) Pathologist [facility] Heparin Anti-Xa (UFH) 0.30 0.30 - 0.70 IU/ml 04/05/2025 4:32 AM EDT [facility] Blood Venipuncture / Unknown 04/05/2025 3:54 AM EDT 04/05/2025 4:15 AM EDT For Your ImaginationD LAB BLOOD ORDERABLES Final R esult Performing Organization Address City/[facility]/ZIP Co de Phone Number [facility]
[address] [place] [address], * (ABNORMAL) CBC Auto Differential (04/05/2025 3:54 AM EDT) [facility] WBC 11.18(H) 3.40 - 10.80 10*3/mm3 [...] 35.7 g/dL 04/05/2025 4:20 AM [facility] RDW 12.9 12.3 - 15.4 % 04/05/2025 4:20 AM [facility] RDW-SD 39.7 37.0 - 54.0 fl 04/05/2025 4:20 AM [facility] MPV 10.2 6.0 - 12.0 fL 04/05/2025 4:20 AM [facility] Platelets 160 140 - 450 10*3/mm3 04/05/2025 4:20 AM [facility] Neutrophil % 73.5 42.7 - 76.0 % 04/05/2025 4:20 AM [facility] Lymphocyte % 14.0(L) 19.6 - 45.3 % 04/05/2025 4:20 AM [facility] Monocyte % 11.0 5.0 - 12.0 % 04/05/2025 4:20 AM [facility] Eosinophil % 0.8 0.3 - 6.2 % 04/05/2025 4:20 AM [facility] Basophil % 0.3 0.0 - 1.5 % 04/05/2025 4:20 AM [facility] Immature Grans % 0.4 0.0 - 0.5 % 04/05/2025 4:20 AM [facility] Neutrophils, Absolute 8.23(H) 1.70 - 7.00 10*3/mm3 04/05/2025 4:20 AM [facility] Lymphocytes, Absolute 1.56 0.70 - 3.10 10*3/mm3 04/05/2025 4:20 AM [facility] Monocytes, Absolute 1.23(H) 0.10 - 0.90 10*3/mm3 04/05/2025 4:20 AM [facility] Eosinophils, Absolute 0.09 0.00 - 0.40 10*3/mm3 04/05/2025 4:20 AM [facility] Basophils, Absolute 0.03 0.00 - 0.20 [...] Final R esult [facility]
[address] [place] [address], * (ABNORMAL) Basic Metabolic Panel (04/05/2025 3:54 [...] Final Re sult [facility]
[address] [place] [address], * (ABNORMAL) aPTT (04/05/2025 12:18 AM EDT) [...] 0.5 U/ml are 60 to 70 seconds. [facility] LAB BLOOD ORDERABLES Final R esult [facility]
[address] [place] [address], [place] [phone] * (ABNORMAL) Protime-INR (04/05/2025 12:18 AM EDT) Protime 15.9(H) 12.2 - 15.3 Seconds 04/05/2025 12:53 AM EDT [facility] INR 1.19(H) 0.89 - 1.12 04/05/2025 12:53 AM EDT [facility] Blood Venipuncture / Unknown 04/05/2025 12:18 AM EDT 04/05/2025 12:37 AM EDT [facility] LAB BLOOD ORDERABLES Final R esult Performing Organization Address [facility] Co de Phone Number [facility]
[address] [place] [address], [place] [phone] * Heparin Anti-Xa (04/05/2025 12:18 AM EDT) Pathologist [facility] Heparin Anti-Xa (UFH) 0.39 0.30 - 0.70 IU/ml 04/05/2025 12:54 AM EDT [facility] Blood Venipuncture / Unknown 04/05/2025 12:18 AM EDT 04/05/2025 12:37 AM EDT [facility] LAB BLOOD ORDERABLES Final R esult Performing Organization Address City/[facility]/ZIP Co de Phone Number [facility]
[address] [place] [address], [place] [phone] * MRI Tibia Fibula Right With & [...] MD 04/04/2025 11:00 PM EDT Workstation ID: [id number] Narrative 04/04/2025 11:00 PM EDT MRI TIBIA [...] MD 04/04/2025 11:00 PM EDT Workstation ID: [id number] Leonora Shepherd MD IMG MRI ORDERABLES Final Resu lt * POC Creatinine (04/04/2025 2:49 PM EDT) Creatinine 1.10 0.60 - 1.30 mg/dL 04/07/2025 7:14 PM EDT [facility] Comment:Serial Number: [id number] [id number] Venous Blood 04/04/2025 2:49 PM EDT 04/07/2025 7:14 PM EDT Jason Álvarez DO POINT OF CARE TEST ORDERABLES Fi nal Result [facility]
[address] [place] [address], [place] [phone] * (ABNORMAL) CBC Auto Differential (04/04/2025 2:47 PM EDT) [facility] Signature WBC 12.72(H) 3.40 - 10.80 [...] Fin al Result [facility]
[address] [place] [address], * (ABNORMAL) C-reactive Protein (04/04/2025 2:47 PM EDT) Pathologist [facility] C-Reactive Protein 8.57(H) 0.00 - 0.50 mg/dL 04/04/2025 3:26 PM EDT [facility] Blood Venipuncture / Unknown 04/04/2025 2:47 PM EDT 04/04/2025 2:52 PM EDT Mario Ortiz Keo LAB BLOOD ORDERABLES Fin al Result [facility]
[address] [place] [address], * (ABNORMAL) Sedimentation Rate (04/04/2025 2:47 PM EDT) [facility] Sed Rate 51(H) 0 - 15 mm/hr 04/04/2025 3:06 PM EDT [facility] Blood Venipuncture / Unknown 04/04/2025 2:47 PM EDT 04/04/2025 2:52 PM EDT Mario Ortiz Keo LAB BLOOD ORDERABLES Fin al Result Performing Organization Address City/[facility]/ZIP Co de Phone Number [facility]
[address] [place] [address], * Comprehensive Metabolic Panel (04/04/2025 2:47 PM [...] 3:26 PM EDT [facility] Total Protein 7.3 6.0 - 8.5 g/dL 04/04/2025 3:26 PM EDT [facility] Albumin 4.1 3.5 - 5.2 g/dL 04/04/2025 3:26 PM EDT [facility] ALT (SGPT) 26 1 - 41 U/L 04/04/2025 3:26 PM EDT [facility] AST (SGOT) 25 1 - 40 U/L 04/04/2025 3:26 PM EDT [facility] Alkaline Phosphatase 106 39 - 117 U/L 04/04/2025 3:26 PM T [facility] Total Bilirubin 1.0 0.0 - 1.2 mg/dL 04/04/2025 3:26 PM EDT [facility] Globulin 3.2 gm/dL 04/04/2025 3:26 PM T [facility] Comment:Calculated Result A/G Ratio 1.3 g/dL 04/04/2025 3:26 PM EDT [facility] BUN/Creatinine Ratio 19.5 7.0 - 25.0 04/04/2025 3:26 PM T [facility] Anion Gap 10.7 5.0 - 15.0 mmol/L 04/04/2025 3:26 PM T [facility] eGFR 102.5 >60.0 mL/min/1.7 3 04/04/2025 3:26 PM [facility] Blood Venipuncture / Unknown 04/04/2025 2:47 PM EDT 04/04/2025 2:52 PM EDT Narrative [facility] - 04/04/2025 3:26 PM EDT GFR [...] Fin al Result [facility]
[address] [place] [address], documented in this encounter Visit Diagnoses Diagnosis [...] BPA Driven Protocol Open Order & [facility] Electrolyte Replacement Protocol Algorithm to View Details [...] BPA Driven Protocol Open Order & [facility] Electrolyte Replacement Protocol Algorithm to View Details [...] Salazar, KELL)1943 (Given - Provider: Anahy Marcelino, PHYSIATRIST)2129 (Canceled Entry - Provider: Anahy Marcelino PHYSIATRIST - Comment: previously given) 0837 (Given - [...] medication prescribed for a lower pain scale. ([facility]) If given for pain, use [...] Continuous Medication Order 04/09/2025 04/10/2025 04/11/2025 heparin 78616 units/250 mL (100 units/mL) in 0.45 % [...] BPA Driven Protocol Open Order & [facility] Electrolyte Replacement Protocol Algorithm to View Details [...] documented as of this encounter Care Teams Podiatrist Relationship Specialty Start Date End Date Provider, [place] [address] PCP - General 05/09/23 documented as of this encounter
--- OUTSIDE RECORDS SUMMARY | 2025-04-08 15:34 | XMS_ITS | Encounter Summary ---
Author Organization [facility] Address [address] [place] [address] Care Team Providers Care Health And Safety Specialist Name Role Phone Provider, No Known Primary Care Provider Unavail able Reason for Visit * Auth/Cert Specialty Diagnoses / Procedures Referred By Bulmaro muniz Referred To Contact Diagnoses Right BKA infection Referral ID Status Reason Start Date Expiration Date Visits Re quested Visits Authorized [id number] 1 1 Encounter Details Date Type Department Care Team (Late st Contact Info) Description 04/08/2025 3:34 PM EDT Anesthesia Event [facility] OR [address] [place] [address] Ulises Hoffman MD [address] [place] [address] Jairo Brooks MD [address] [place] [address] Anesthesia Record Procedure Summary Procedure Name Responsible [...] Surgical; Closed Surgi 04/08/25 0135 by Susi Gruloln, LU Peripheral IV Placement Date: 04/04/25; Placement [...] 0.6 oz pur e alcohol) [facility] Utilities Answer Date Recorded In the past 12 months has [employer], oil, or water [employer] threatened to shut off services in your [...] Date: 04/08/25 Room / Location: [facility] OR [address] [place] [address] [facility] [place] Anesthesia Start: 1533 Anesthesia Stop: [...] Abdominal Substance History - negative use OIL WELL PERFORATOR OPERATOR negative or nurse manager ROS Other Anesthesia Plan ASA 3 [...] documented as of this encounter Care Teams Health And Safety Specialist Relationship Specialty Start Date End Date Provider, [place] [address] PCP - General 05/09/23 documented as of this encounter
--- OUTSIDE RECORDS SUMMARY | 2025-04-21 08:43 | XMS_ITS | Encounter Summary ---
Author Organization Healthcare Address [address] [place] [address] Care Team Providers Care Loop Drier Operator Name Role Phone Unavailable Primary Care Provider Unavailabl e Encounter Details Date Type Department Care Team (Late st Contact Info) Description 07/20/2022 Lab Requisition [facility] [address] [place] [address] Sushil Dean MD [address] [place] [address] Encounter for general adult medical examination without [...]
--- OUTSIDE RECORDS SUMMARY | 2025-04-21 08:43 | XMS_ITS | Encounter Summary ---
Author Organization Healthcare Address [address] [place] [address] Care Team Providers Care Internet Sales Representative Name Role Phone Unavailable Primary Care Provider Unavailabl e Encounter Details Date Type Department Care Team (Late st Contact Info) Description 07/20/2022 Lab Requisition [facility] [address] [place] [address] Sushil Dean MD [address] [place] [address] Encounter for general adult medical examination without [...] at day 4 07/27/2022 11:32 AM EST [facility] Bone Specimen from bone / Unknown 07/20/2022 1:36 PM EST 07/20/2022 5:52 PM EST us Sushil Dean MD LAB MICROBIOLOGY - GENERAL O RDERABLES Final Result Performing Organization Address City/[facility] Co de Phone Number HEALTHCARE LAB [address] [place] [address] * Bone Culture and Gram Stain (07/20/2022 1:36 PM EST) Culture No growth at day 4 2022 9:16 AM EST [facility] Gram Stain Result Rare Polymorphonuclear leukocytes 07/24/2022 9:16 AM EST [facility] Gram Stain Result No organisms seen 07/24/2022 9:16 AM EST [facility] Bone Specimen from bone / Unknown 07/20/2022 1:36 PM EST 07/20/2022 5:52 PM EST us Sushil Dena MD LAB MICROBIOLOGY - GENERAL O RDERABLES Final Result Performing Organization Address City/[facility] Co de Phone Number HEALTHCARE [facility] [address] [place] [address] documented in this encounter Visit Diagnoses Diagnosis Encounter for general adult medical examination without abnormal findings documented in this encounter
--- OUTSIDE RECORDS SUMMARY | 2025-04-21 08:43 | XMS_ITS | Encounter Summary ---
Author Organization [facility] Address [address] [place] [address] Care Team Providers Care Meat Cutting Teacher Name Role Phone Provider, No Known [...] 2:25 PM EDT Cherri Grimm RN * [place] Suicide Severity Rating Scale (Screener/Recent Self-Report) Question [...] documented as of this encounter Care Teams Meat Cutting Teacher Relationship Specialty Start Date End Date Provider, No Known [facility] [place] [address] PCP - General 05/09/23 documented as of this encounter
--- OUTSIDE RECORDS SUMMARY | 2025-04-21 08:43 | XMS_ITS | Encounter Summary ---
Author Organization Healthcare Address [address] [place] [address] Care Team Providers Care Travel Agency Manager Name Role Phone Unavailable Primary Care Provider Unavailabl e Encounter Details Date Type Department Care Team (Late st Contact Info) Description 10/01/2022 Lab Requisition [facility] [address] [place] [address] Sushil Dean MD [address] [facility]. [address] [place] [address] Encounter for general adult medical examination without [...] has been identified using the FDA Approved Eco-Vacayyper CA System The organism value for this [...] 10/04/2022 2:17 PM EDT Refer to culture [id number] FOR SUSCEPTIBILITIES ON NEELIMA ALBICANS us Sushil Dean MD LAB MICROBIOLOGY - GENERAL O RDERABLES Final Result [facility] [address] [place] [id number] documented in this encounter Visit Diagnoses Diagnosis Encounter for general adult medical examination without abnormal findings documented in this encounter
--- OUTSIDE RECORDS SUMMARY | 2025-04-21 08:43 | XMS_ITS | Encounter Summary ---
Author Organization Healthcare Address [address] [place] [address] Care Team Providers Care Roll Slicing Machine Tender Name Role Phone Unavailable Primary Care Provider Unavailabl e Encounter Details Date Type Department Care Team (Late st Contact Info) Description 05/17/2023 Lab Requisition [facility] [address] [place] [address] Sushil Dean MD 216 [facility] [address] [place] [address] Encounter for general adult medical examination without [...] O RDERABLES Final Result Performing Organization Address City/[facility] Co de Phone Number [facility] [address] [place] [address] * Bone Culture and Gram Stain (05/17/2023 [...] O RDERABLES Final Result Performing Organization Address [facility] Co de Phone Number [facility] [address] [place] [address] documented in this encounter Visit Diagnoses Diagnosis Encounter for general adult medical examination without abnormal findings documented in this encounter
--- OUTSIDE RECORDS SUMMARY | 2025-04-21 08:43 | XMS_ITS | Encounter Summary ---
Author Organization [facility] Address [address] [place] [address] Care Team Providers Care Collect On Delivery Clerk Name Role Phone Unavailable Primary Care Provider Unavailabl e Encounter Details Date Type Department Care Team (Late st Contact Info) Description 10/03/[address] [facility] [address] [place] [address] Dalila Cox MD [address] [place], [place] [id number] Encounter for general adult medical examination without [...] Culture Neelima albicans(A) 10/05/2022 11:58 AM EDT [facility] Comment: This result was determined by MALDI tof Mass spectrometry. This assay was developed and its performance characteristics determined by [facility] as appropriate for clinical purposes. [...] Edited Result - Final [facility]ARE [facility] [address] [place] [address] documented in this encounter Visit Diagnoses Diagnosis Encounter for general adult medical examination without abnormal findings documented in this encounter
--- OUTSIDE RECORDS SUMMARY | 2025-04-21 08:43 | XMS_ITS | Patient Health Record ---
[facility] [address] [facility] [address] [place] [id number] Care Team Providers Care Radiology Physician Name Role Phone Zeeshan Salazar Primary Care [...] W/U Status Risk Notes Problem Essential hypertension (06581562) HTN [Hypertension] (401.9) Active confirmed appears resolved Problem Hypothyroidism (24606893) Hypothyroidism NOS (244.9) Active confirmed Problem Hyperlipidemia (16331914) Hyperlipidemia (272.4) Active confirmed Problem Constipation (30478791) Constipation, unspecified constipation type (K59.00) Active confirmed Problem History of pulmonary embolism on long-term anticoagulation therapy (99336659972364027 ) Hx pulmonary embolism (Z86.711) Active confirmed Problem Long-term current use of anticoagulant (695424310) Current use of terminal superintendent anticoagulation (Z79.01) Active confirmed Problem Adjustment disorder with anxious mood (45409776) Adjustment disorder with anxious mood (F43.22) Active confirmed Problem History of pulmonary embolus (352664977) History of pulmonary embolus (PE) (Z86.711) Active confirmed Problem Methicillin resistant Staphylococcus aureus infection (disorder) (130287203) Infection of wound due to methicillin resistant Staphylococcus aureus (MRSA) (A49.02) Active confirmed Problem Arthritis of knee (312474744) Arthritis of knee (M17.10) Active confirmed Problem Amputated below knee (416610346) 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
--- OUTSIDE RECORDS SUMMARY | 2025-04-21 08:43 | XMS_ITS | Encounter Summary ---
Author Organization Healthcare Address [address] [place] [address] Care Team Providers Care Application Penetration Tester Name Role Phone Unavailable Primary Care Provider Unavailabl e Encounter Details Date Type Department Care Team (Late st Contact Info) Description 05/13/2023 Lab Requisition [facility] [address] [place] [address] Sushil Dean MD [address] [facility]. [address] [place] [address] Encounter for general adult medical examination without [...] RDERABLES Final Result Performing Organization Address [facility] Co de Phone Number [facility] [address] [place] [address] * Anaerobic Culture (05/13/2023 9:17 AM EDT) Culture No growth at day 4 05/20/2023 10:35 AM EST [facility] Bone 05/13/2023 9:17 AM EDT 05/13/2023 1:25 PM EDT us Sushil Dean MD LAB MICROBIOLOGY - GENERAL O RDERABLES Final Result Performing Organization Address [facility] de Phone Number [facility] [address] [place] [address] * Bone Culture and Gram Stain (05/13/2023 [...] RDERABLES Final Result Performing Organization Address [facility] de Phone Number [facility] [address] [place] [address] documented in this encounter Visit Diagnoses Diagnosis Encounter for general adult medical examination without abnormal findings documented in this encounter
--- OUTSIDE RECORDS SUMMARY | 2025-04-21 08:43 | XMS_ITS | Clinical Summary ---
Author Organization [facility] Address [address] [place] [address] Care Team Providers Care Customer Advisor Specialist Name Role Phone Provider, No Known [...] Discontinue d(Stop Taking at Discharge) Lactobacillus- Inulin ([facility] [employer] [facility]) capsule Take 200 mg by [...] Description 04/08/2025 3:34 PM EDT Anesthesia [place] [facility] [place] [place] [address] [place] [phone] Ulises Hoffman MD Wells, Jeremy B., MD 04/08/2025 2:45 PM EDT - 04/08/2025 4:04 PM EDT Surgery [facility] OR [address] [place] [address] Sushil Dean Jr., MD LEG DEBRIDEMENT AND IRRIGATION 04/07/2025 8:36 PM EDT Anesthesia Event [facility] OR [address] [place] [address] Luci Alonso DO 04/07/2025 6:00 PM EDT - 04/07/2025 6:52 PM EDT Surgery [facility] OR [address] [place] [address] Sushil Dean Jr., MD LEG DEBRIDEMENT, IRRIGATION 04/04/2025 4:10 PM EDT - 04/11/2025 1:58 PM EDT Hospital Encounter [facility] 5G [address] [place] [address] Mario Crowley DO Anderson, Laurie, [...] 0.6 oz pur e alcohol) [facility] Utilities Answer Date Recorded In the past 12 months has [employer], gas, oil, or water [employer] threatened to shut off services in your [...] or training? Not on file Preferred Language Gambian 04/07/2025 Sex and Gender Information Value Date [...] this topic Medical Devices Implanted Type Area Class A Lineman Device Identifier Shelf Expiration Date Model / Serial / Lot Dev Wnd/Cls Contrl Tiss Stratafix Spiral Pls Pds Ct1 0 22cm - [id number] Implanted:Qty: 1 on 04/08/2025 by Sushil Dean Jr., MD at [facility] Implant Right: Leg [employer] 12/07/2025 [id number] / / [id number] Procedures Procedure Name Priority [...] 3:4 0 PM EDT Right BKA infection [place] SEC ABDOMINAL WALL SUTURE EVISCERATION/DEHSN 04/08/2025 3:20 [...] - 10.80 10*3/mm3 04/11/2025 4:02 AM EDT [facility] RBC 4.70 4.14 - 5.80 10*6/mm3 04/11/2025 4:02 AM EDT [facility] Hemoglobin 12.8(L) 13.0 - 17.7 g/dL 04/11/2025 4:02 AM EDT [facility] Hematocrit 40.5 37.5 - 51.0 % 04/11/2025 4:02 AM EDT [facility] MCV 86.2 79.0 - 97.0 fL 04/11/2025 4:02 AM EDT [facility] MCH 27.2 26.6 - 33.0 pg 04/11/2025 4:02 AM EDT [facility] MCHC 31.6 31.5 - 35.7 g/dL 04/11/2025 4:02 AM EDT [facility] RDW 12.9 12.3 - 15.4 % 04/11/2025 4:02 AM EDT [facility] RDW-SD 40.5 37.0 - 54.0 fl 04/11/2025 4:02 AM EDT [facility] MPV 9.2 6.0 - 12.0 fL 04/11/2025 4:02 AM EDT [facility] Platelets 267 140 - 450 10*3/mm3 04/11/2025 4:02 AM EDT [facility] Neutrophil % 59.5 42.7 - 76.0 % 04/11/2025 4:02 AM EDT [facility] Lymphocyte % 26.3 19.6 - 45.3 % 04/11/2025 4:02 AM EDT [facility] Monocyte % 9.3 5.0 - 12.0 % 04/11/2025 4:02 AM [facility] Eosinophil % 4.1 0.3 - 6.2 % 04/11/2025 4:02 AM EDT [facility] Basophil % 0.4 0.0 - 1.5 % 04/11/2025 [facility] Immature Grans % 0.4 0.0 - 0.5 % 04/11/2025 4:02 AM [facility] Neutrophils, Absolute 4.69 1.70 - 7.00 10*3/mm3 04/11/2025 4:02 AM [facility] Lymphocytes, Absolute 2.07 0.70 - 3.10 10*3/mm3 04/11/2025 4:02 AM [facility] Monocytes, Absolute 0.73 0.10 - 0.90 10*3/mm3 04/11/2025 4:02 AM [facility] Eosinophils, Absolute 0.32 0.00 - 0.40 10*3/mm3 04/11/2025 4:02 AM [facility] Basophils, Absolute 0.03 0.00 - 0.20 10*3/mm3 04/11/2025 4:02 AM [facility] Immature Grans, Absolute 0.03 0.00 - 0.05 10*3/mm3 04/11/2025 4:02 AM [facility] nRBC 0.0 0.0 - 0.2 /100 WBC 04/11/2025 4:02 AM [facility] Blood Venipuncture / Unknown 04/11/2025 3:40 AM EDT 04/11/2025 3:59 AM EDT Sushil Dean Jr., MD LAB BLOOD ORDERABLES Fi nal Result [facility]
[address] [place] [address], * (ABNORMAL) Comprehensive Metabolic Panel (04/11/2025 3:40 AM EDT) Only the most recent of2 resultswithin the time period is included. Glucose 108(H) 65 - 99 mg/dL 04/11/2025 4:19 AM EDT [facility] BUN 12.5 6.0 - 20.0 mg/dL 04/11/2025 4:19 AM EDT [facility] Creatinine 0.68(L) 0.76 - 1.27 mg/dL 04/11/2025 4:19 AM EDT [facility] Sodium 140 136 - 145 mmol/L 04/11/2025 4:19 AM EDT [facility] Potassium 3.8 3.5 - 5.2 mmol/L 04/11/2025 4:19 AM EDT [facility] Chloride 105 98 - 107 mmol/L 04/11/2025 4:19 AM EDT [facility] CO2 28.2 22.0 - 29.0 mmol/L 04/11/2025 4:19 AM EDT [facility] Calcium 8.2(L) 8.6 - 10.5 mg/dL 04/11/2025 4:19 AM EDT [facility] Total Protein 6.1 6.0 - 8.5 g/dL 04/11/2025 4:19 AM EDT [facility] Albumin 3.1(L) 3.5 - 5.2 g/dL 04/11/2025 4:19 AM EDT [facility] ALT (SGPT) 52(H) 1 - 41 U/L 04/11/2025 4:19 AM EDT [facility] AST (SGOT) 40 1 - 40 U/L 04/11/2025 4:19 AM EDT [facility] Alkaline Phosphatase 99 39 - 117 U/L 04/11/2025 4:19 AM EDT [facility] Total Bilirubin 0.2 0.0 - 1.2 mg/dL 04/11/2025 4:19 AM EDT [facility] Globulin 3.0 gm/dL 04/11/2025 4:19 AM EDT [facility] Comment:Calculated Result A/G Ratio 1.0 g/dL 04/11/2025 4:19 AM EDT [facility] BUN/Creatinine Ratio 18.4 7.0 - 25.0 04/11/2025 4:19 AM EDT [facility] Anion Gap 6.8 5.0 - 15.0 mmol/L 04/11/2025 4:19 AM EDT [facility] eGFR 117.5 >60.0 mL/min/1.7 3 04/11/2025 4:19 AM EDT [facility] Blood Venipuncture / [...] race as a factor us Rosario Hill LAMPS TESTER AND INSPECTOR LAB BLOOD ORDERABLES Final Result [facility]
[address] [place] [id number], * Heparin Anti-Xa (04/10/2025 3:46 AM EDT) Only the most recent of13 resultswithin the time period is included. Heparin Anti-Xa (UFH) 0.35 0.30 - 0.70 IU/ml 04/10/2025 4:23 AM EDT [facility] Blood Venipuncture / Unknown 04/10/2025 3:46 AM EDT 04/10/2025 3:53 AM EDT Larisa Hamilton [facility] LAB BLOOD ORDERABLES Final R esult [facility]
[address] [place] [address], * (ABNORMAL) Basic Metabolic Panel (04/10/2025 3:46 AM EDT) Only the most recent of6 resultswithin the time period is included. [facility] Glucose 125(H) 65 - 99 mg/dL 04/10/2025 4:20 AM EDT [facility] BUN 15.9 6.0 - 20.0 mg/dL 04/10/2025 4:20 AM EDT [facility] Creatinine 0.77 0.76 - 1.27 mg/dL 04/10/2025 4:20 AM EDT [facility] Sodium 137 136 - 145 mmol/L 04/10/2025 4:20 AM EDT [facility] Potassium 3.9 3.5 - 5.2 mmol/L 04/10/2025 4:20 AM EDT [facility] Chloride 102 98 - 107 mmol/L 04/10/2025 4:20 AM EDT [facility] CO2 26.9 22.0 - 29.0 mmol/L 04/10/2025 4:20 AM EDT [facility] Calcium 7.9(L) 8.6 - 10.5 mg/dL 04/10/2025 4:20 AM EDT [facility] BUN/Creatinine Ratio 20.6 7.0 - 25.0 04/10/2025 4:20 AM EDT [facility] Anion Gap 8.1 5.0 - 15.0 mmol/L 04/10/2025 4:20 AM EDT [facility] eGFR 113.2 >60.0 mL/min/1.7 3 04/10/2025 4:20 AM EDT [facility] Blood Venipuncture / Unknown 04/10/2025 3:46 AM EDT 04/10/2025 3:52 AM EDT Narrative [facility] - 04/10/2025 4:20 AM [...] DO LAB BLOOD ORDERABLES Final Resul t [facility]
[address] [place] [address], * Wound Culture - Swab, Leg, Right (04/08/2025 3:40 PM EDT) Only the most recent of3 resultswithin the time period is included. Wound Culture No growth at 3 days ALIZA 04/11/2025 10:40 AM EDT [facility] Gram Stain Few (2+) WBCs seen 04/11/2025 10:40 AM EDT [facility] Gram Stain No organisms seen 04/11/2025 10:40 AM EDT [facility] Swab Structure of right lower limb / Unknown 04/08/2025 3:40 PM EDT 04/08/2025 8:05 PM EDT Sushil Dean Jr., MD MICROBIOLOGY - GENERAL ORDERABLES Final Result Performing Organization Address City/[facility]/ZIP Co de Phone Number [facility]
[address] [place] [address], [facility]
[address] [place] [address], [place] [phone] * Anaerobic Culture - Swab, Leg, Right [...] Final Result Performing Organization Address [facility] [[email or web address]] Co de Phone Number [facility]
[address] [place] [address], * Scan Slide (04/08/2025 8:41 AM EDT) RBC Morphology Normal Normal 04/08/2025 11:02 AM EDT [facility] WBC Morphology Normal Normal 04/08/2025 11:02 AM EDT [facility] Platelet Estimate Adequate Normal 04/08/2025 11:02 AM EDT [facility] Clumped Platelets Present None Seen 04/08/2025 11:02 AM EDT [facility] Blood Venipuncture / Unknown 04/08/2025 8:41 AM EDT 04/08/2025 9:10 AM EDT Una Perla PharmD LAB BLOOD ORDERABLES Final R esult Performing Organization Address City/[facility]/ZIP Co de Phone Number [facility]
[address] [place] [address], [place] [phone] * [place] C Arm During Surgery (04/07/2025 [...] (1+) WBCs seen 04/11/2025 10:36 AM EDT [facility] Gram Stain No organisms seen 04/11/2025 10:36 AM EDT [facility] Tissue Structure of right lower limb / Unknown 04/07/2025 9:13 PM EDT 04/08/2025 4:54 AM EDT us Sushil Dean Jr., MD MICROBIOLOGY - GENERAL ORDERABLES Final Result [facility]
[address] [place] [address], [facility]
[address] [place] [address], * BH AN ETT AIRWAY (04/07/2025 8:44 [...] [place] 04/07/2025 9:58 AM EDT Workstation ID: [id number] Narrative 04/07/2025 9:58 AM EDT MRI TIBIA [...] [place] 04/07/2025 9:58 AM EDT Workstation ID: [id number] Sushil Dean Jr., MD IMG MRI ORDERABLES Mary Beth l Result * Potassium (04/06/2025 7:16 PM EDT) Potassium 4.0 3.5 - 5.2 mmol/L 04/06/2025 7:53 PM EDT [facility] Blood Venipuncture / Unknown 04/06/2025 7:16 PM EDT 04/06/2025 7:35 PM EDT Jason Álvarez DO LAB BLOOD ORDERABLES Final Resul t Performing Organization Address City/[facility]/ZIP Co de Phone Number [facility]
[address] [place] [address], * CK (04/05/2025 12:15 PM EDT) Creatine Kinase 140 20 - 200 U/L 04/05/2025 1:31 PM EDT [facility] Blood Venipuncture / Unknown 04/05/2025 12:15 PM EDT 04/05/2025 1:03 PM EDT Carlton Mead MD LAB BLOOD ORDERABLES Final R esult Performing Organization Address City/[facility]/ZIP Co de Phone Number [facility]
[address] [place] [address], * (ABNORMAL) aPTT (04/05/2025 3:54 AM EDT) Only the most recent of2 resultswithin the time period is included. PTT 35.3(L) 60.0 - 90.0 seconds 04/05/2025 4:31 AM EDT [facility] Blood Venipuncture / Unknown 04/05/2025 3:54 AM EDT 04/05/2025 4:15 AM EDT Narrative [facility] - 04/05/2025 4:31 AM EDT PTT = The equivalent PTT values for the therapeutic range of heparin levels at 0.3 to 0.5 U/ml are 60 to 70 seconds. [facility] LAB BLOOD ORDERABLES Final R esult Performing Organization Address City/[facility]/ZIP Co de Phone Number [facility]
[address] [place] [address], * (ABNORMAL) Protime-INR (04/05/2025 12:18 AM EDT) Pathologist [facility] Protime 15.9(H) 12.2 - 15.3 Seconds 04/05/2025 12:53 AM EDT [facility] INR 1.19(H) 0.89 - 1.12 04/05/2025 12:53 AM EDT [facility] Blood Venipuncture / Unknown 04/05/2025 12:18 AM EDT 04/05/2025 12:37 AM EDT [facility] PharmD LAB BLOOD ORDERABLES Final R esult Performing Organization Address City/[facility]/ZIP Co de Phone Number [facility]
[address] [place] [address], * POC Creatinine (04/04/2025 2:49 PM EDT) Pathologist [facility] Creatinine 1.10 0.60 - 1.30 mg/dL 04/07/2025 7:14 PM EDT [facility] Comment:Serial Number: [id number] Venous Blood 04/04/2025 2:49 PM EDT 04/07/2025 7:14 PM EDT Jason Álvarez DO POINT OF CARE TEST ORDERABLES Fi nal Result Performing Organization Address [facility] [[email or web address]] Co de Phone Number [facility]
[address] [place] [address], * (ABNORMAL) Sedimentation Rate (04/04/2025 2:47 PM EDT) Sed Rate 51(H) 0 - 15 mm/hr 04/04/2025 3:06 PM EDT [facility] Blood Venipuncture / Unknown 04/04/2025 2:47 PM EDT 04/04/2025 2:52 PM EDT Mario Crowley LAB BLOOD ORDERABLES Fin al Result Performing Organization Address [facility] de Phone Number [facility]
[address] [place] [address], * (ABNORMAL) C-reactive Protein (04/04/2025 2:47 PM EDT) C-Reactive Protein 8.57(H) 0.00 - 0.50 mg/dL 04/04/2025 3:26 PM EDT [facility] Blood Venipuncture / Unknown 04/04/2025 2:47 PM EDT 04/04/2025 2:52 PM EDT Mario Crowley DO LAB BLOOD ORDERABLES Fin al Result Performing Organization Address [facility] [[email or web address]] Co de Phone Number [facility]
[address] [place] [address], from Last 3 Months Additional Health Concerns [...] Of Support Discussed With: Patient Care Teams Customer Advisor Specialist Relationship Specialty Start Date End Date Provider, No Known [facility] [place] [address] PCP - General 05/09/23
--- OUTSIDE RECORDS SUMMARY | 2025-04-21 08:43 | XMS_ITS | Encounter Summary ---
Author Organization Healthcare Address [address] [place] [address] Care Team Providers Care Caustic Liquor Maker Name Role Phone Unavailable Primary Care Provider Unavailabl e Encounter Details Date Type Department Care Team (Late st Contact Info) Description 08/12/2022 Lab Requisition [facility] [address] [place] [address] Sushil Dean MD [address] [place] [address] Encounter for general adult medical examination without [...] has been identified using the FDA Approved Mobile Labser CA System The organism value for this [...] O ERIC Final Result Performing Organization Address City/[facility] de Phone Number HEALTHCARE LAB [address] [place] [address] * Bone Culture and Gram Stain (08/12/2022 [...] O RDERABLES Final Result Performing Organization Address City/[facility] de Phone Number [facility] [address] [place] [address] documented in this encounter Visit Diagnoses Diagnosis Encounter for general adult medical examination without abnormal findings documented in this encounter
--- OUTSIDE RECORDS SUMMARY | 2025-04-21 08:43 | XMS_ITS | Encounter Summary ---
Author Organization Healthcare Address [address] [place] [address] Care Team Providers Care Full Fashioned Garment Knitter Name Role Phone Unavailable Primary Care Provider Unavailabl e Encounter Details Date Type Department Care Team (Late st Contact Info) Description 10/19/2022 Lab Requisition [facility] Lab [address] [place] [address] Sushil Dean MD [address] [place] [address] Encounter for general adult medical examination without [...] by MALDI tof mass spectrometry using the [employer] database and is for research use only. The organism value for this result has been updated. These results have been appended to the previously preliminary verified report. Bone Specimen from bone / Unknown 10/19/2022 5:17 PM EDT 10/19/2022 9:49 PM EDT Sushil Dean MD LAB MICROBIOLOGY - GENERAL O RDERABLES Final Result Performing Organization Address [facility] de Phone Number HEALTHCARE LAB [address] [place] [phone] * Bone Culture and Gram Stain (10/19/2022 5:17 PM EDT) Culture No growth at day 4 2022 8:14 AM EDT HEALTHCARE LAB Gram Stain Result Few Polymorphonuclear leukocytes 10/23/2022 8:14 AM EDT HEALTHCARE LAB Gram Stain Result No organisms seen 10/23/2022 8:14 AM EDT [facility] Bone Specimen from bone / Unknown 10/19/2022 5:17 PM EDT 10/19/2022 9:49 PM EDT Sushil Dean MD LAB MICROBIOLOGY - GENERAL O RDERAADDI Final Result Performing Organization Address [facility] Phone Number HEALTHCARE LAB [address] [place] [address] documented in this encounter Visit Diagnoses Diagnosis Encounter for general adult medical examination without abnormal findings documented in this encounter
--- OUTSIDE RECORDS SUMMARY | 2025-04-21 08:44 | XMS_ITS | Clinical Summary ---
Author Organization Healthcare Address [address] [place] [address] Care Team Providers Care Rod Piler Name Role Phone Unavailable Primary Care Provider [...]
[2025-04-21 08:53] VITALS: BP 120/71; PULSE 68; RESP 18; TEMP 36.8; O2SAT 97
[2025-04-21 08:53] LABS: Hematocrit 42.4 % (42.0-52.0); Hemoglobin 13.9 g/dL (14.1-18.0); Immature Granulocytes % 0.1 %; Mean Corpuscular HGB Conc 32.8 g/dL (31.8-35.4); Mean Corpuscular Hemoglobin 27.8 pg (27.0-31.2); Mean Corpuscular Volume 84.8 fl (80-94); Nucleated Red Blood Cells % 0 %; Platelet Count 298 K/mm3 (142-424); Red Blood Count 5.00 M/mm3 (4.60-6.20); Red Cell Distribution Width-SD 39.6 fL; White Blood Count 6.7 K/mm3 (4.8-10.8)
[2025-04-21] MEDS: SODIUM CHLORIDE 0.9% 10ML FLUSH SYRINGE 10 ML IV (08:53)
[2025-04-21 09:09] LABS: Albumin Level 3.7 g/dl (3.5-5.0); Chloride 104 mmol/L (98-107); Potassium 4.0 mmoL/L (3.5-5.1); Sodium 138 mmol/L (136-145)
[2025-04-21 09:12] LABS: Alanine Aminotransferase 69 U/L (12-78); Albumin/Globulin Ratio 1.0 (1.1-1.8); Alkaline Phosphatase 100 U/L (38-126); Anion Gap 11.0 mEq/L (5-15); Aspartate Amino Transferase 46 U/L (17-59); Bilirubin,Total 0.3 mg/dl (0.2-1.3); Blood Urea Nitrogen 17 mg/dl (9-20); Calcium 7.8 mg/dl (8.4-10.2); Carbon Dioxide 27 mmol/L (22.0-30.0); Creatine Kinase 154 U/L (55-170); Creatinine,Serum 0.80 mg/dl (0.66-1.25); Estimated Glomerular Filt Rate 105 ml/min (>60); GFR (African American) 127 ML/MIN (>60); Globulin 3.6 g/dL (1.3-3.2); Glucose 99 mg/dl (74-100); Total Protein,Serum 7.3 g/dl (6.3-8.2)
[2025-04-21 09:35] VITALS: BP 115/67; PULSE 65; RESP 16; TEMP 36.8; O2SAT 98
[2025-04-21 10:05] LABS: C-Reactive Protein 6.7 mg/L (0-4)
== END 2025-04-21 23:59 | disposition home or self-care (01) ==
LOC: INF 08:30
PROVIDERS: PCP Nurse Practitioner Family; Visit Provider Internal Medicine Infectious Disease
DX: L03.115 Cellulitis of right lower limb (principal); L02.415 Cutaneous abscess of right lower limb; Z89.511 Acquired absence of right leg below knee; D68.2 Hereditary deficiency of other clotting factors; I10 Essential (primary) hypertension; E78.5 Hyperlipidemia, unspecified; F39 Unspecified mood [affective] disorder
CPT/HCPCS: 36592; 80053; 82550; 85025; 85651; 86140; 96365; J0878

== ENCOUNTER 2025-04-22 09:12 | Outpatient (CLI) | payer MEDICARE, SELFPAY ==
--- OUTSIDE RECORDS SUMMARY | 2023-10-25 12:15 | XMS_ITS ---
Author Organization [facility] Address [address] [place] [address] YVON Sykes [phone] Care Team Providers Care Gallery Host Name Role Phone Zeeshan Salazar Primary Care Provider [phone] Macario Burkett [phone] Allergies No Known Allergies REASON FOR VISIT check up BP Encounters Encounter Location Date Provider Diagnosis [facility] [address] [place] [address] Y[place]ON Sykes [id number] 10/25/2023 Macario Burkett Plan Of Treatment No Information Progress Notes * MITCHELLWonDOB: [birth year] (44 yo M)Acc No.[id number]:10/25/2023 Progress Notes Patient: Won SPANN Provider: Colleen Burkett M.D. :1980 A ge:43 Y S ex:Male Date:10/25/2023 Address:[address] [place] [address] Onel THACKER [id number] Pcp:Zeeshan Salazar Subjective: * Chief Complaints: * [...] alive, hypertension. M aternal Grand Mother: HBP, [place]. Brother with HBP. * Social History: C URRENT TOBACCO USE S moking Status: Patient does NOT smoke. C affeine: no. Alcohol: No. * Allergies: N .K.D.A. Objective: * Vitals: Assessment: Plan: * Treatment: * Images: Billing Information: * Visit Code: * Procedure Codes: * Electronic signature of Micaela Burkett MD on 04/22/2025 at 09:27 AM EDT Sign off status: Pending * Provider: Colleen Burkett M.D. Date: 0 10/25/2023 Generated for Nany joregnsen/Elaine/Lisbethitting on: 1 09:27 AM EDT
--- OUTSIDE RECORDS SUMMARY | 2023-12-12 05:00 | XMS_ITS ---
Author Organization Ayaka Address 1210 [facility] 36 [facility] 2C [place] [phone] Care Team Providers Care Lav Crewman Name Role Phone Zeeshan Salazar Primary Care Provider Macario Burkett [phone] REASON FOR VISIT 6 Month Check Up Encounters Encounter Location Date Provider Diagnosis [place] 1210 [facility] [address] [place] [phone] 12/12/2023 Macario Burkett Plan Of Treatment No Information Progress Notes * Won MEDRANO ZeeshanDOB: [birth year] (44 yo M)Acc No.[id number]:12/12/2023 Progress Notes Patient: Won SPANN Provider: Colleen Burkett M.D. :1980 A ge:43 Y S ex:Male Date:12/12/2023 Address:[address] [place] [address] On[id number] Pcp:Zeeshan Salazar Subjective: * Chief Complaints: * 1 . 6 Month Check Up. * Medical History: Objective: * Vitals: Assessment: Plan: * Treatment: * Images: Billing Information: * Visit Code: * Procedure Codes: * Electronic signature of Micaela Burkett MD on 04/22/2025 at 09:27 AM EDT Sign off status: Pending * Provider: Colleen Burkett M.D. Date: 12/12/2023 Generated for Nany jorgensen/Elaine/Pro on: 1 09:27 AM EDT
--- OUTSIDE RECORDS SUMMARY | 2025-04-04 16:10 | XMS_ITS | Encounter Summary ---
Author Organization [facility] Address [address] [place] [address] Care Team Providers Care Bumper Machine Operator Name Role Phone Provider, No Known Primary Care Provider Unavail able Reason for Visit * Reason Comments Leg Swelling * Auth/Cert Specialty Diagnoses / Procedures Referred By Contlevy t Referred To Contact Diagnoses Right BKA infection Referral ID Status Reason Start Date Expiration Date Visits Re quested Visits Authorized [id number] 1 1 Encounter Details Date Type Department Care Team (Late st Contact Info) Description 04/04/2025 4:10 PM EDT - 04/11/2025 1:58 PM EDT Hospital Encounter [address] [place] [address] Mario Crowley, [address] [place] [address] Leonora Shepherd MD [address] [address] Jason Álvarez DO [address] [address] Jadyn Richardson DO [address] [address] Cellulitis of right lower extremity (Primary Dx); Below-knee amputation of right lower extremity, initial encounter; Right BKA infection Discharge Disposition: Home or Self Care Social History Tobacco Use Types Packs/Day Years Used Date Smoking Tobacco: Never Smokeless Tobacco: Never Tobacco Cessation:Counseling Given: Not Answered Alcohol Use Standard Drinks/Week Comments Not Currently 0 (1 standard drink = 0.6 oz pur e alcohol) [facility] Utilities Answer Date Recorded In the past 12 months has th e two.42.solutions, gas, oil, or water company threatened to [...] or training? Not on file Preferred Language Guamanian 04/07/2025 Sex and Gender Information Value Date [...] 2:25 PM EDT Cherri Grimm RN * [place] Suicide Severity Rating Scale (Screener/Recent Self-Report) Question [...] original note were not included. [facility] DISCHARGE SUMMARY Patient Name: Won [...] Date/Time Wound Culture - Swab, Leg, Right [[id number]] (Abnormal) (Susceptibility) Collected: 04/07/252106 Lab Status: Final [...] Units Date/Time FL C Arm During Surgery [[id number]] Resulted: 04/07/252137 Updated: 04/07/252137 Narrative: This procedure was auto-finalized with no dictation required. MRI Tibia Fibula Right With & Without Contrast [[id number]] Collected: 04/07/25 0938 Updated: 04/07/25 1001 Narrative: [...] Buenrostro 04/07/2025 9:58 AM EDT Workstation ID: [id number] MRI Tibia Fibula Right With & Without Contrast [[id number]] Collected: 04/04/252256 Updated: 04/04/252302 Narrative: MRI TIBIA [...] MD 04/04/2025 11:00 PM EDT Workstation ID: [id number] Pending Labs Order Current Status Fungus Culture [...] FLOMAX 1 capsule, Nightly Stop These Medications [facility] capsule doxycycline 100 MG tablet Commonly [...] Male) Date of 1980 Social Security Number [id number] [place] [address] [place] Unknown Marital Status Unknown Admission Date 04/04/2025 Admission Type Emergency Admitting Provider Jadyn Richardson DO Attending Provider Jadyn Richardson DO Department, Room/Bed [address], S565/1 Discharge Date Discharge Disposition Discharge [...] Group [place] [id number] Payor Plan Address Payor Plan Phone Number Payor Plan Fax Number Effective Dates [employer] [address] [address] 08/10/2023 - None Entered [place] [address] Subscriber Name Subscriber Date Member ID WON DENNIS 1980 [id number] Emergency Contacts Echo Tech (Rel.) Home Phone Work Phone Mobile Phone Avril Dennis (Spouse) -- -- [phone] LewRobert (Relative) -- -- [phone] [place] [address] Patient: ROOM: [facility] Won Dennis [address] [facility] [address] : 1980 SSN: [id number] Sex: M PCP: Provider, No Known Emergency Contact Information Name Relation Home Work Mobile Avril Dennis Spouse [phone] Other Contacts Name Relation Home Work Mobile Robert Hackett Relative [phone] INSURANCE PAYOR [employer]AN [employer] # SUBSCRIBER ID Primary: Secondary: MEDICARE [employer] [id number] Admitting Diagnosis: 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] Order Date: Apr 09, 2025 Case Management Buildings And Grounds Supervisor Consult (Order ID: [id number]) Diagnosis: Priority: Routine Expected Date: Expiration Date: Interval: Once Count: Comments: Outpatient orders: 1. Outpatient intravenous antibiotic therapy: Daptomycin 800 mg IV daily to be supplied by [facility] home infusion 2. Home health to perform [...] INFECTIOUS DISEASE Progress Note Won Dennis 1980 [id number] Date of Consult: 04/10/2025 Admission Date: 04/04/2025 Requesting Provider: Evaluating Physician: Dr. Mable eMad MD. 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 He c/o swelling with erythema for several days after a new prosthesis was fitted, which prompted him to seek treatment at [facility]. He is known to Dr. [...] HDS, on Heparin gtt. Currently [facility] has been asked to manage [...] Jr., MD, 20 mg at 04/09/25906 heparin 16119 units/250 mL (100 units/mL) in 0.45 % [...] Units Date/Time FL C Arm During Surgery [[id number]] Resulted: 04/07/252137 Updated: 04/07/252137 Narrative: This procedure was auto-finalized with no dictation required. MRI Tibia Fibula Right With & Without Contrast [[id number]] Collected: 04/07/25 0938 Updated: 04/07/25 1001 Narrative: [...] Chitra 04/07/2025 9:58 AM EDT Workstation ID: [id number] Impression: Recurrent Right BKA stump abscess/cellulitis- this [...] discussed his disposition with the pharmacist at [facility] today. I will sign off Outpatient orders: 1. Outpatient intravenous antibiotic therapy: Daptomycin 800 mg IV daily to be supplied by [facility] 2. Home health to perform weekly [...] Signed Expand All Collapse All [facility] PROGRESS NOTE Patient Name: Won [...] Date/Time Wound Culture - Swab, Leg, Right [[id number]] (Abnormal) (Susceptibility) Collected: 04/07/252106 Lab Status: Final [...] Living Arrangements home -LM People in Home spouse;child(lso), dependent and 5 kids -LM Row Name [...] Row Name 04/06/25 1143 Sit-Stand Transfer Sit-Stand [place] (Transfers) modified independence -LM Comment, (Sit-Stand Transfer) Pt stood from recliner. Not holding onto walker, pt able to pull his pants up while balancing on his one leg. -LM Row Name 04/06/25 1143 Gait/Stairs (Locomotion) [place] Level (Gait) modified independence -LM Distance in [...] Nurse Physical Therapy Education Title: PT OT PROP MAKER Therapies (Done) Topic: Physical Therapy (Done) Point: [...] Description Service Date Service Provider Modifiers Qty [id number] PT EVAL LOW COMPLEXITY 3 04/06/2025 Susan [...] 1 tablet by mouth Every Night. 03/26/2025 oxyCODONE (ROXICODONE) 5 MG immediate release tabletIndication s:Right BKA infection Take 1 tablet by mouth Every 4 (Four) Hours As Needed for Moderate Pain. 42 tablet 04/08/2025 saccharomyces boulardii (FLORASTOR) 250 MG capsule Take 1 capsule by mouth 2 (Two) Times a Day. 60 capsule 04/11/2025 sertraline (ZOLOFT) 100 MG tablet Take 1 tablet by mouth Every Night. 03/26/2025 Symbicort 160-4.5 MCG/ACT inhaler Inhale 2 puffs 2 (Two) Times a Day. 03/26/2025 tamsulosin (FLOMAX) 0.4 MG capsule 24 hr capsule Take 1 capsule by mouth Every Night. 03/26/2025 DAPTOmycin 800 mg in sodium chloride [...] mg Daily 04/05/2025 -- Route: Oral heparin 46331 units/250 mL (100 units/mL) in 0.45 % [...] -- Admin Instructions: Open Order & Select [facility] Electrolyte Replacement Protocol Algorithm to View Details [...] Dean MD April 21 vs April 22 [facility] [address], [address] [facility], [address] Please schedule at [phone] VONDA Garcia 04/11/25 08:32 EDT Cosigned by Sushil Dean Jr., MD at 04/19/2025 10:33 AM EDT Associated attestation - Sushil Dean Jr., MD - 04/19/2025 10:33 AM EDT I have reviewed this documentation and agree. * Rosario Hill APRN - 04/10/2025 1:24 PM EDT Images from the original note were not included. [facility] PROGRESS NOTE Patient Name: Won [...] Date/Time Wound Culture - Swab, Leg, Right [[id number]] (Abnormal) (Susceptibility) Collected: 04/07/252106 Lab Status: Final [...] mg Daily 04/05/2025 -- Route: Oral heparin 69093 units/250 mL (100 units/mL) in 0.45 % [...] -- Admin Instructions: Open Order & Select [facility] Electrolyte Replacement Protocol Algorithm to View Details [...] -- Admin Instructions: Open Order & Select [facility] Electrolyte Replacement Protocol Algorithm to View Details [...] -- Admin Instructions: Open Order & Select [facility] Electrolyte Replacement Protocol Algorithm to View Details [...] Dean MD April 21 vs April 22 [facility] [address], [address] [facility], [address] Please schedule at [phone] VONDA Garcia 04/10/25 09:01 EDT Cosigned by Sushil Dean Jr., MD at 04/19/2025 10:33 AM EDT Associated attestation - Sushil Dean Jr., MD - 04/19/2025 10:33 AM EDT I have reviewed this documentation and agree. * Carlton Mead MD - 04/10/2025 7:38 AM EDT Images from the original note were not included. INFECTIOUS DISEASE Progress Note Won Dennis 1980 [id number] Date of Consult: 04/10/2025 Admission Date: 04/04/2025 [...] which prompted him to seek treatment at [facility]. He is known to Dr. [...] HDS, on Heparin gtt. Currently [facility] has been asked to manage [...] Jr., MD, 20 mg at 04/09/25906 heparin 16585 units/250 mL (100 units/mL) in 0.45 % [...] 250 mg, 250 mg, Oral, BID, Sushil Dena Jr., MD, 250 mg at 04/09/252026 sertraline [...] vancomycin 2750 mg/500 mL 0.9% NS IVPB ([facility]) Ordering Provider: Mario Crowley, DO 20 mg/kg [...] Units Date/Time FL C Arm During Surgery [[id number]] Resulted: 04/07/252137 Updated: 04/07/252137 Narrative: This procedure was auto-finalized with no dictation required. MRI Tibia Fibula Right With & Without Contrast [[id number]] Collected: 04/07/25 0938 Updated: 04/07/25 1001 Narrative: [...] Buenrostro 04/07/2025 9:58 AM EDT Workstation ID: [id number] Impression: Recurrent Right BKA stump abscess/cellulitis- this [...] discussed his disposition with the pharmacist at [facility] today. I will sign off Outpatient orders: 1. Outpatient intravenous antibiotic therapy: Daptomycin 800 mg IV daily to be supplied by [facility] 2. Home health to perform weekly [...] 07:38 EDT * Yaya Hamiltonn, [facility] - 04/10/2025 7:17 AM EDT Pharmacy to [...] 18 0600 04/11 ALDEN RN, pump verified Lraisa Hamilton RPH 04/10/2025 07:17 EDT * Jason Álvarez DO - 04/09/2025 2:42 PM EDT Images from the original note were not included. [facility] PROGRESS NOTE Patient Name: Won [...] Date/Time Wound Culture - Swab, Leg, Right [[id number]] (Abnormal) Collected: 04/07/252106 Lab Status: Preliminary result [...] Preeti 04/09/25 * Larisa Hamilton [facility] - 04/09/2025 11:36 AM EDT Pharmacy to [...] mg Daily 04/05/2025 -- Route: Oral heparin 11638 units/250 mL (100 units/mL) in 0.45 % [...] -- Admin Instructions: Open Order & Select [facility] Electrolyte Replacement Protocol Algorithm to View Details [...] -- Admin Instructions: Open Order & Select [facility] Electrolyte Replacement Protocol Algorithm to View Details [...] -- Admin Instructions: Open Order & Select [facility] Electrolyte Replacement Protocol Algorithm to View Details [...] in 2 weeks for incision check, radiographs [facility] [address], [address] [facility], [address] Please schedule at [phone] VONDA Garcia 04/09/25 09:18 EDT Cosigned by Sushil Dean Jr., MD at 04/19/2025 10:33 AM EDT Associated attestation - Sushil Dean Jr., MD - 04/19/2025 10:33 AM EDT I have reviewed this documentation and agree. * Carlton Mead MD - 04/09/2025 8:25 AM EDT Images from the original note were not included. INFECTIOUS DISEASE Progress Note Won Dennis 1980 [id number] Date of Consult: 04/09/2025 Admission Date: 04/04/2025 [...] which prompted him to seek treatment at [facility]. He is known to Dr. [...] HDS, on Heparin gtt. Currently [facility] has been asked to manage [...] Dean Jr., MD; Location: [facility] OR; Service: Orthopedics; Laterality: Right; PLACEMENT OF WOUND VAC Right 04/07/2025 Procedure: WOUND VACUUM ASSISTED CLOSURE; Surgeon: Sushil Dean Jr., MD; Location: [facility] OR; Service: Orthopedics; Laterality: Right; History [...] MD, 20 mg at 04/08/25 0800 heparin 12631 units/250 mL (100 units/mL) in 0.45 % [...] Units Date/Time FL C Arm During Surgery [[id number]] Resulted: 04/07/252137 Updated: 04/07/252137 Narrative: This procedure was auto-finalized with no dictation required. MRI Tibia Fibula Right With & Without Contrast [[id number]] Collected: 04/07/2538 Updated: 04/07/25 1001 Narrative: MRI [...] Buenrostro 04/07/2025 9:58 AM EDT Workstation ID: [id number] Impression: Recurrent Right BKA stump abscess/cellulitis- this [...] mg IV daily to be supplied by [facility] infusion 2. Home health to perform [...] original note were not included. [facility] PROGRESS NOTE Patient Name: Won [...] Buenrostro 04/07/2025 9:58 AM EDT Workstation ID: [id number] I have personally reviewed the therapy plans: [...] DO 04/08/25 * Larisa Hamilton [facility] - 04/08/2025 11:48 AM EDT Pharmacy to [...] -- Admin Instructions: Open Order & Select [facility] Electrolyte Replacement Protocol Algorithm to View Details [...] mg Daily 04/05/2025 -- Route: Oral heparin 30976 units/250 mL (100 units/mL) in 0.45 % [...] -- Admin Instructions: Open Order & Select [facility] Electrolyte Replacement Protocol Algorithm to View Details [...] -- Admin Instructions: Open Order & Select [facility] Electrolyte Replacement Protocol Algorithm to View Details [...] -- Admin Instructions: Open Order & Select [facility] Electrolyte Replacement Protocol Algorithm to View Details [...] INFECTIOUS DISEASE Progress Note Won Dennis 1980 [id number] Date of Consult: 04/08/2025 Admission Date: 04/04/2025 [...] which prompted him to seek treatment at [facility]. He is known to Dr. [...] HDS, on Heparin gtt. Currently [facility] has been asked to manage [...] Dean Jr., MD; Location: [facility] OR; Service: Orthopedics; Laterality: Right; PLACEMENT OF WOUND VAC Right 04/07/2025 Procedure: WOUND VACUUM ASSISTED CLOSURE; Surgeon: Sushil Dean Jr., MD; Location: [facility] OR; Service: Orthopedics; Laterality: Right; History [...] Jr., MD, 20 mg at 04/07/25950 heparin 76541 units/250 mL (100 units/mL) in 0.45 % [...] Units Date/Time FL C Arm During Surgery [[id number]] Resulted: 04/07/252137 Updated: 04/07/252137 Narrative: This procedure was auto-finalized with no dictation required. MRI Tibia Fibula Right With & Without Contrast [[id number]] Collected: 04/07/2538 Updated: 04/07/25 1001 Narrative: MRI [...] Buenrostro 04/07/2025 9:58 AM EDT Workstation ID: [id number] Impression: 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 (Treated by ID in [place] Dr. Harris). Dr. Torres treated him with [...] original note were not included. [facility] PROGRESS NOTE Patient Name: Won [...] Buenrostro 04/07/2025 9:58 AM EDT Workstation ID: [id number] I have personally reviewed the therapy plans: [...] DO 04/07/25 * Larisa Hamilton [facility] - 04/07/2025 11:56 AM EDT Pharmacy to [...] INFECTIOUS DISEASE Progress Note Won Dennis 1980 [id number] Date of Consult: 04/07/2025 Admission Date: 04/04/2025 [...] which prompted him to seek treatment at [facility]. He is known to Dr. [...] HDS, on Heparin gtt. Currently [facility] has been asked to manage [...] Application, 1 Application, Topical, Q12H, Ayah Valentin, PARKING PATROLLER, 1 Application at 04/06/252101 DAPTOmycin (CUBICIN) 800 [...] Shepherd MD, 20 mg at 04/06/25899 heparin 00256 units/250 mL (100 units/mL) in 0.45 % NaCl infusion, 18 Units/kg/hr, Intravenous, Titrated, Cherri Beatty, [facility], Last Rate: 24.1 mL/hr at 04/07/258, 18 [...] With & Without Contrast - In process [[id number]] Resulted: 04/07/25828 Updated: 04/07/25828 This result has not been signed. Information might be incomplete. MRI Tibia Fibula Right With & Without Contrast [[id number]] Collected: 04/04/252256 Updated: 04/04/252302 Narrative: MRI TIBIA [...] MD 04/04/2025 11:00 PM EDT Workstation ID: [id number] Impression: 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 (Treated by ID in [place] Dr. Harris). Dr. Torres treated him with [...] mg Daily 04/05/2025 -- Route: Oral heparin 93252 units/250 mL (100 units/mL) in 0.45 % [...] -- Admin Instructions: Open Order & Select [facility] Electrolyte Replacement Protocol Algorithm to View Details [...] -- Admin Instructions: Open Order & Select [facility] Electrolyte Replacement Protocol Algorithm to View Details [...] 06:07 EDT * Cherri Beatty [facility] - 04/06/2025 1:47 PM EDT Pharmacy to [...] original note were not included. [facility] PROGRESS NOTE Patient Name: Won [...] MD 04/04/2025 11:00 PM EDT Workstation ID: [id number] I have personally reviewed the therapy plans: [...] mg Daily 04/05/2025 -- Route: Oral heparin 92577 units/250 mL (100 units/mL) in 0.45 % [...] -- Admin Instructions: Open Order & Select [facility] Electrolyte Replacement Protocol Algorithm to View Details [...] INFECTIOUS DISEASE follow up. Won Dennis 1980 [id number] Date of Consult: 04/06/2025 Admission Date: 04/04/2025 [...] which prompted him to seek treatment at [facility]. He is known to Dr. [...] HDS, on Heparin gtt. Currently [facility] has been asked to manage [...] Application, 1 Application, Topical, Q12H, Ayah Valentin, PARKING PATROLLER, 1 Application at 04/06/25 0859 DAPTOmycin (CUBICIN) [...] MD, 20 mg at 04/06/25 0900 heparin 29643 units/250 mL (100 units/mL) in 0.45 % NaCl infusion, 18 Units/kg/hr, Intravenous, Titrated, Cherri Beatty [facility], Last Rate: 24.1 mL/hr at 04/06/25 1420, [...] flush 10 mL, 10 mL, Intravenous, Q12H, Loenora Shepherd MD, 10 mL at 04/06/25 0900 [...] Tibia Fibula Right With & Without Contrast [[id number]] Collected: 04/04/252256 Updated: 04/04/252302 Narrative: MRI TIBIA [...] represent a small area of phlegmonous change ([id number] image 10) measuring approximately 1.6 cm which [...] MD 04/04/2025 11:00 PM EDT Workstation ID: [id number] Impression: 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 (Treated by ID in [place] Dr. Harris). Dr. Torres treated him with [...] 16:00 EDT * Cherri Beatty, [facility] - 04/05/2025 3:01 PM EDT Pharmacy to [...] original note were not included. [facility] PROGRESS NOTE Patient Name: Won [...] MD 04/04/2025 11:00 PM EDT Workstation ID: [id number] I have personally reviewed the therapy plans: [...] original note were not included. [facility] HISTORY AND PHYSICAL Patient Name: [...] MD 04/04/2025 11:00 PM EDT Workstation ID: [id number] Assessment & Plan Assessment & Plan Won [...] 4FR PICC placed by Rhoda Bonner RN [facility], tip verified by 3CG see LDA. * Sushil Dean Jr., MD - 04/05/2025 8:07 AM EDTAssociated Order(s): IP CONSULT TO ORTHOPEDIC SURGERY [facility], [facility] [address] [address] Orthopedic Consult Patient: Won Dennis Date of Admission: 04/04/2025 4:10 PM Date of : 1980 Attending Physician: Jason Álvarez DO Consulting Physician: Sushil Dean Jr, MD Chief Complaint: 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 male admitted to [facility] with 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]. He [...] was evaluated in the emergency department in [place], was discharged with instructions for follow-up. He [...] tablet by mouth Daily. 04/03/2025 Morning Lactobacillus-Inulin ([facility] Platiza) capsule Take 200 mg by mouth Daily. [...] MD 04/04/2025 11:00 PM EDT Workstation ID: [id number] Assessment: Right BKA infection 44-year-old male with [...] DISEASE CONSULT/INITIAL HOSPITAL VISIT Won Dennis 1980 [id number] Date of Consult: 04/05/2025 Admission Date: 04/04/2025 [...] which prompted him to seek treatment at [facility]. He is known to Dr. [...] HDS, on Heparin gtt. Currently [facility] has been asked to manage [...] Leonora Shepherd MD, 40 mg at 04/04/25 8319 sennosides-docusate (PERICOLACE) 8.6-50 MG per tablet 2 [...] MD, 20 mg at 04/05/25 0916 heparin 63965 units/250 mL (100 units/mL) in 0.45 % [...] Tibia Fibula Right With & Without Contrast [[id number]] Collected: 04/04/252256 Updated: 04/04/252302 Narrative: MRI TIBIA [...] represent a small area of phlegmonous change ([id number] image 10) measuring approximately 1.6 cm which [...] MD 04/04/2025 11:00 PM EDT Workstation ID: [id number] Impression: 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 (Treated by ID in [place] Dr. Harris). Dr. Torres treated him with [...] Jr., MD - 04/08/2025 3:51 PM EDT [facility] OPERATIVE REPORT PATIENT NAME: Won Dennis DATE OF : 1980 PREOP DIAGNOSIS: Right Right below-knee amputation infection POSTOP DIAGNOSIS: Same. PROCEDURE: Right Right 16098: Secondary closure below-knee amputation SURGEON: Sushil Dean MD OPERATIVE TEAM: Inside Sales Supervisor: Susi Grullon RN Scrub Person: Mary Paredes Scrub Person Extra: Hortencia Toribio Other: Katt Gotti RN; Charis Neville RN ANESTHETIST: Anesthesiologist: Ulises Hoffman MD ASSEMBLY DEPARTMENT SUPERVISOR: Stan Casillas CRNA Student Nurse Director Of Volunteer Services: Karol Albert SRNA ANESTHESIA: Choice ESTIMATED BLOOD [...] CULTURE (Canceled) Sushil Dean Jr., MD 04/08/25 9987 Description: RIGHT LEG DEEP WOUND FOR CULTURE [...] Jr., MD - 04/07/2025 9:03 PM EDT [facility] [address] [address] OPERATIVE REPORT PATIENT NAME: Won Dennis DATE OF : 1980 PREOP DIAGNOSIS: Right Right below knee amputation stump infection POSTOP DIAGNOSIS: Same. PROCEDURE: Right Right 49185: Incision and drainage of surgical site infection 57479: Debridement of skin, subcutaneous tissue, muscle 79590: Wound vacuum-assisted closure SURGEON: Sushil Dean MD OPERATIVE TEAM: Inside Sales Supervisor: Anum Sanchez RN Scrub Person: Hortencia Toribio; Gerald Ivey CAT SITTER: Anesthesiologist: Luci Alonso DO ANESTHESIA: General ESTIMATED [...] ago swellling of the area. seen at [facility] yesterday for CT and US, [...] this chart in the absence of a building code administrator. No orders to display RADIOLOGY: [x] [...] 04/11/2025 1:30 PM EDT Continued Stay Note [place] Patient Name: Won Dennis Today's Date: 04/11/2025 Admit Date: 04/04/2025 Plan: Home with outpatient infusion. Discharge Plan Row Name 04/11/25 1155 Plan Plan Home with outpatient infusion. Final Discharge Disposition Code 01 - home or self-care Final Note Patient discharging today. He is discharging home with outpatient infusion at [facility]. He has an appointment with [facility] at 8:00 am tomorrow. They will do PICC line dressing changes. DEBRA has spoke with Dena at [facility] today multiple times to get [...] to get IV ABX at home with [facility]; however, Medicaid lapsed on 04/08. DEBRA was unaware until this morning that Medicaid has lapsed. Patient explained that he has Medicare A and B. CM spoke with KELLEE and given themhis Medicare number [id number], she sent it to Admission. DEBRA spoke with Kerri, with [facility], and explained that he had Medicare A and B. However, it will not cover home infusion. It will be $64.00 a day out of packet. Patients can go to the Infusion center at [facility], and it will cover the cost as an outpatient. He will need to go there every day for infusion. They will be able to do the patients' PICC line dressing changes and lab work. CM called [facility] they can accept patient and start him. He is known for their facility. The Facility will need to run it through his insurance first. CM faxed the orders over to [facility] at [phone]. CM will follow up with them tomorrow at [facility] to make sure they received [...] with patient at bedside today. [facility] at bedside. Patient getting PICC line [...] note were not included. Discharge Planning Assessment [place] Patient Name: Won Dennis Today's Date: 04/07/2025 [...] with family Patient/Family Anticipated Services at Transition caseworker [employer] manager Anticipated family or friend will provide Discharge Needs Assessment Equipment Currently Used at Home glucometer;shower chair;pulse ox;bp cuff;prosthesis;crutches Equipment Needed After Discharge none Discharge Plan Row Name 04/07/25 1144 Plan Plan Home Patient/Family in Agreement with Plan yes Plan Comments CM spoke with patient at bedside today. Patient lives with and his 5 kids in [facility]. 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 He has walker, cane, shower chair, and crutches. He requested a wheelchair for home. CM will order wheelchair through [employer]. He is not current with home health services. PCP is Dr. Jordan. Insurance is [facility] Medicaid [place]. Patient discharge plan is home with priavte transport. CM will follow for any discharge needs. Final Discharge Disposition Code 01 - home or self-care Continued Care and Services - Admitted Since 04/04/2025 No active coordination exists. Demographic Summary Row Name 04/07/25 1143 General Information Arrived From hospital Preferred Language Guamanian Functional Status Row Name 04/07/25 1143 Functional [...] CBC Auto Differential (04/11/2025 3:40 AM EDT) [facility] WBC 7.87 3.40 - 10.80 10*3/mm3 04/11/2025 4:02 AM EDT [facility] RBC 4.70 4.14 - 5.80 10*6/mm3 04/11/2025 4:02 AM EDT [facility] Hemoglobin 12.8(L) 13.0 - 17.7 g/dL 04/11/2025 4:02 AM EDT [facility] Hematocrit 40.5 37.5 - 51.0 % 04/11/2025 4:02 AM EDT [facility] MCV 86.2 79.0 - 97.0 fL 04/11/2025 4:02 AM EDT [facility] MCH 27.2 26.6 - 33.0 pg 04/11/2025 4:02 AM EDT [facility] MCHC 31.6 31.5 - 35.7 g/dL 04/11/2025 4:02 AM EDT [facility] RDW 12.9 12.3 - 15.4 % 04/11/2025 4:02 AM EDT [facility] RDW-SD 40.5 37.0 - 54.0 fl 04/11/2025 4:02 AM EDT [facility] MPV 9.2 6.0 - 12.0 fL 04/11/2025 4:02 AM EDT [facility] Platelets 267 140 - 450 10*3/mm3 04/11/2025 4:02 AM [facility] Neutrophil % 59.5 42.7 - 76.0 % 04/11/2025 4:02 AM [facility] Lymphocyte % 26.3 19.6 - 45.3 % 04/11/2025 4:02 AM [facility] Monocyte % 9.3 5.0 - 12.0 % 04/11/2025 4:02 AM [facility] Eosinophil % 4.1 0.3 - 6.2 % 04/11/2025 4:02 AM [facility] Basophil % 0.4 0.0 - 1.5 % 04/11/2025 4:02 AM [facility] Immature Grans % 0.4 0.0 - 0.5 % 04/11/2025 4:02 AM [facility] Neutrophils, Absolute 4.69 1.70 - 7.00 10*3/mm3 04/11/2025 4:02 AM [facility] Lymphocytes, Absolute 2.07 0.70 - 3.10 10*3/mm3 04/11/2025 4:02 AM [facility] Monocytes, Absolute 0.73 0.10 - 0.90 10*3/mm3 04/11/2025 4:02 AM [facility] Eosinophils, Absolute 0.32 0.00 - 0.40 10*3/mm3 04/11/2025 4:02 AM [facility] Basophils, Absolute 0.03 0.00 - 0.20 10*3/mm3 04/11/2025 4:02 AM [facility] Immature Grans, Absolute 0.03 0.00 - 0.05 10*3/mm3 04/11/2025 4:02 AM [facility] nRBC 0.0 0.0 - 0.2 /100 WBC 04/11/2025 4:02 AM [facility] Blood Venipuncture / Unknown 04/11/2025 3:40 AM EDT 04/11/2025 3:59 AM EDT us Sushli Dean Jr., MD LAB BLOOD ORDERABLES Fi nal Result [facility]
[address] [place] [address], * (ABNORMAL) Comprehensive Metabolic Panel (04/11/2025 3:40 AM EDT) Glucose 108(H) 65 - 99 mg/dL 04/11/2025 4:19 AM EDT [facility] BUN 12.5 6.0 - 20.0 mg/dL 04/11/2025 4:19 AM EDT [facility] Creatinine 0.68(L) 0.76 - 1.27 mg/dL 04/11/2025 4:19 AM EDT [facility] Sodium 140 136 - 145 mmol/L 04/11/2025 4:19 AM EDT [facility] Potassium 3.8 3.5 - 5.2 mmol/L 04/11/2025 4:19 AM EDT [facility] Chloride 105 98 - 107 mmol/L 04/11/2025 4:19 AM EDT [facility] CO2 28.2 22.0 - 29.0 mmol/L 04/11/2025 4:19 AM EDT [facility] Calcium 8.2(L) 8.6 - 10.5 mg/dL 04/11/2025 4:19 AM EDT [facility] Total Protein 6.1 6.0 - 8.5 g/dL 04/11/2025 4:19 AM EDT [facility] Albumin 3.1(L) 3.5 - 5.2 g/dL 04/11/2025 4:19 AM EDT [facility] ALT (SGPT) 52(H) 1 - 41 U/L 04/11/2025 4:19 AM EDT [facility] AST (SGOT) 40 1 - 40 U/L 04/11/2025 4:19 AM EDT [facility] Alkaline Phosphatase 99 39 - 117 U/L 04/11/2025 4:19 AM EDT [facility] Total Bilirubin 0.2 0.0 - 1.2 mg/dL 04/11/2025 4:19 AM EDT [facility] Globulin 3.0 gm/dL 04/11/2025 4:19 AM EDT [facility] Comment:Calculated Result A/G Ratio 1.0 g/dL 04/11/2025 4:19 AM EDT [facility] BUN/Creatinine Ratio 18.4 7.0 - 25.0 04/11/2025 4:19 AM EDT [facility] Anion Gap 6.8 5.0 - 15.0 mmol/L 04/11/2025 4:19 AM EDT [facility] eGFR 117.5 >60.0 mL/min/1.7 3 04/11/2025 4:19 AM EDT [facility] Blood Venipuncture / Unknown 04/11/2025 3:40 AM EDT 04/11/2025 3:56 AM EDT [facility] - 04/11/2025 4:19 AM EDT [...] APRN LAB BLOOD ORDERABLES Final Result [facility]
[address] [place] [address], * (ABNORMAL) CBC Auto Differential (04/10/2025 3:46 AM EDT) [facility] WBC 9.60 3.40 - 10.80 10*3/mm3 04/10/2025 3:56 AM EDT [facility] RBC 4.67 4.14 - 5.80 10*6/mm3 04/10/2025 3:56 AM [facility] Hemoglobin 12.9(L) 13.0 - 17.7 g/dL 04/10/2025 3:56 AM EDT [facility] Hematocrit 40.1 37.5 - 51.0 % 04/10/2025 3:56 AM [facility] MCV 85.9 79.0 - 97.0 fL 04/10/2025 3:56 AM [facility] MCH 27.6 26.6 - 33.0 pg 04/10/2025 3:56 AM [facility] MCHC 32.2 31.5 - 35.7 g/dL 04/10/2025 3:56 AM [facility] RDW 12.9 12.3 - 15.4 % 04/10/2025 3:56 AM [facility] RDW-SD 40.5 37.0 - 54.0 fl 04/10/2025 3:56 AM [facility] MPV 9.5 6.0 - 12.0 fL 04/10/2025 3:56 AM [facility] Platelets 227 140 - 450 10*3/mm3 04/10/2025 3:56 AM EDT [facility] Neutrophil % 59.1 42.7 - 76.0 % 04/10/2025 3:56 AM [facility] Lymphocyte % 29.0 19.6 - 45.3 % 04/10/2025 3:56 AM [facility] Monocyte % 8.1 5.0 - 12.0 % 04/10/2025 3:56 AM [facility] Eosinophil % 3.2 0.3 - 6.2 % 04/10/2025 3:56 AM EDT [facility] Basophil % 0.4 0.0 - 1.5 % 04/10/2025 3:56 AM EDT [facility] Immature Grans % 0.2 0.0 - 0.5 % 04/10/2025 3:56 AM EDT [facility] Neutrophils, Absolute 5.67 1.70 - 7.00 10*3/mm3 04/10/2025 3:56 AM EDT [facility] Lymphocytes, Absolute 2.78 0.70 - 3.10 10*3/mm3 04/10/2025 3:56 AM EDT [facility] Monocytes, Absolute 0.78 0.10 - 0.90 10*3/mm3 04/10/2025 3:56 AM EDT [facility] Eosinophils, Absolute 0.31 0.00 - 0.40 10*3/mm3 04/10/2025 3:56 AM EDT [facility] Basophils, Absolute 0.04 0.00 - 0.20 10*3/mm3 04/10/2025 3:56 AM EDT [facility] Immature Grans, Absolute 0.02 0.00 - 0.05 10*3/mm3 04/10/2025 3:56 AM EDT [facility] nRBC 0.0 0.0 - 0.2 /100 WBC 04/10/2025 3:56 AM EDT [facility] Blood Venipuncture / Unknown 04/10/2025 3:46 AM EDT 04/10/2025 3:53 AM EDT Jason Álvarez DO LAB BLOOD ORDERABLES Final Resul t [facility]
[address] [place] [address], * (ABNORMAL) Basic Metabolic Panel (04/10/2025 3:46 AM EDT) [facility] Glucose 125(H) 65 - 99 mg/dL 04/10/2025 4:20 AM EDT [facility] BUN 15.9 6.0 - 20.0 mg/dL 04/10/2025 4:20 AM T [facility] Creatinine 0.77 0.76 - 1.27 mg/dL 04/10/2025 4:20 AM T [facility] Sodium 137 136 - 145 mmol/L 04/10/2025 4:20 AM [facility] Potassium 3.9 3.5 - 5.2 mmol/L 04/10/2025 4:20 AM EDT [facility] Chloride 102 98 - 107 mmol/L 04/10/2025 4:20 AM EDT [facility] CO2 26.9 22.0 - 29.0 mmol/L 04/10/2025 4:20 AM [facility] Calcium 7.9(L) 8.6 - 10.5 mg/dL 04/10/2025 4:20 AM [facility] BUN/Creatinine Ratio 20.6 7.0 - 25.0 04/10/2025 4:20 AM [facility] Anion Gap 8.1 5.0 - 15.0 mmol/L 04/10/2025 4:20 AM [facility] eGFR 113.2 >60.0 mL/min/1.7 3 04/10/2025 4:20 AM [facility] Blood Venipuncture / Unknown 04/10/2025 3:46 AM EDT 04/10/2025 3:52 AM EDT [facility] - 04/10/2025 4:20 AM EDT [...] LAB BLOOD ORDERABLES Final Resul t [facility]
[address] [place] [address], * Heparin Anti-Xa (04/10/2025 3:46 AM EDT) Heparin Anti-Xa (UFH) 0.35 0.30 - 0.70 IU/ml 04/10/2025 4:23 AM EDT [facility] Blood Venipuncture / Unknown 04/10/2025 3:46 AM EDT 04/10/2025 3:53 AM EDT [facility] LAB BLOOD ORDERABLES Final R esult Performing Organization Address City/[facility]/ZIP Co de Phone Number [facility]
[address] [place] [address], * Heparin Anti-Xa (04/09/2025 10:05 AM EDT) Heparin Anti-Xa (UFH) 0.36 0.30 - 0.70 IU/ml 04/09/2025 11:12 AM EDT [facility] Blood Venipuncture / Unknown 04/09/2025 10:05 AM EDT 04/09/2025 10:47 AM EDT [facility] LAB BLOOD ORDERABLES Final R esult [facility]
[address] [place] [address], * (ABNORMAL) CBC Auto Differential (04/09/2025 4:18 AM EDT) WBC 11.00(H) 3.40 - 10.80 10*3/mm3 04/09/2025 4:50 AM [facility] RBC 4.70 4.14 - 5.80 10*6/mm3 04/09/2025 4:50 AM EDT [facility] Hemoglobin 13.0 13.0 - 17.7 g/dL 04/09/2025 4:50 AM EDT [facility] Hematocrit 40.4 37.5 - 51.0 % 04/09/2025 4:50 AM EDT [facility] MCV 86.0 79.0 - 97.0 fL 04/09/2025 4:50 AM EDT [facility] MCH 27.7 26.6 - 33.0 pg 04/09/2025 4:50 AM [facility] MCHC 32.2 31.5 - 35.7 g/dL 04/09/2025 4:50 AM [facility] RDW 12.8 12.3 - 15.4 % 04/09/2025 4:50 AM [facility] RDW-SD 39.9 37.0 - 54.0 fl 04/09/2025 4:50 AM [facility] MPV 10.0 6.0 - 12.0 fL 04/09/2025 4:50 AM [facility] Platelets 211 140 - 450 10*3/mm3 04/09/2025 4:50 AM [facility] Neutrophil % 74.8 42.7 - 76.0 % 04/09/2025 4:50 AM EDT [facility] Lymphocyte % 15.4(L) 19.6 - 45.3 % 04/09/2025 4:50 AM EDT [facility] Monocyte % 8.5 5.0 - 12.0 % 04/09/2025 4:50 AM EDT [facility] Eosinophil % 0.6 0.3 - 6.2 % 04/09/2025 4:50 AM [facility] Basophil % 0.4 0.0 - 1.5 % 04/09/2025 4:50 AM EDT [facility] Immature Grans % 0.3 0.0 - 0.5 % 04/09/2025 4:50 AM EDT [facility] Neutrophils, Absolute 8.23(H) 1.70 - 7.00 10*3/mm3 04/09/2025 4:50 AM EDT [facility] Lymphocytes, Absolute 1.69 0.70 - 3.10 10*3/mm3 04/09/2025 4:50 AM EDT [facility] Monocytes, Absolute 0.94(H) 0.10 - 0.90 10*3/mm3 04/09/2025 4:50 AM EDT [facility] Eosinophils, Absolute 0.07 0.00 - 0.40 10*3/mm3 04/09/2025 4:50 AM EDT [facility] Basophils, Absolute 0.04 0.00 - 0.20 10*3/mm3 04/09/2025 4:50 AM EDT [facility] Immature Grans, Absolute 0.03 0.00 - 0.05 10*3/mm3 04/09/2025 4:50 AM EDT [facility] nRBC 0.0 0.0 - 0.2 /100 WBC 04/09/2025 4:50 AM EDT [facility] Blood Venipuncture / Unknown 04/09/2025 4:18 AM EDT 04/09/2025 4:31 AM EDT Sushil Dean Jr., MD LAB BLOOD ORDERABLES Fi nal Result [facility]
[address] [place] [address], * Heparin Anti-Xa (04/09/2025 4:18 AM EDT) Heparin Anti-Xa ([facility]FH) 0.41 0.30 - 0.70 IU/ml 04/09/2025 4:53 AM EDT [facility] Blood Venipuncture / Unknown 04/09/2025 4:18 AM EDT 04/09/2025 4:31 AM EDT Una Wheeleroy PharmD LAB BLOOD ORDERABLES Final R esult [facility]
[address] [place] [address], * (ABNORMAL) Basic Metabolic Panel (04/09/2025 4:18 AM EDT) Pathologist [facility] Glucose 147(H) 65 - 99 mg/dL 04/09/2025 5:33 AM EDT [facility] BUN 23.0(H) 6.0 - 20.0 mg/dL 04/09/2025 5:33 AM EDT [facility] Creatinine 1.15 0.76 - 1.27 mg/dL 04/09/2025 5:33 AM EDT [facility] Sodium 135(L) 136 - 145 mmol/L 04/09/2025 5:33 AM EDT [facility] Potassium 4.2 3.5 - 5.2 mmol/L 04/09/2025 5:33 AM EDT [facility] Chloride 100 98 - 107 mmol/L 04/09/2025 5:33 AM EDT [facility] CO2 26.0 22.0 - 29.0 mmol/L 04/09/2025 5:33 AM EDT [facility] Calcium 8.2(L) 8.6 - 10.5 mg/dL 04/09/2025 5:33 AM EDT [facility] BUN/Creatinine Ratio 20.0 7.0 - 25.0 04/09/2025 5:33 AM EDT [facility] Anion Gap 9.0 5.0 - 15.0 mmol/L 04/09/2025 5:33 AM EDT [facility] eGFR 80.5 >60.0 mL/min/1.7 3 04/09/2025 5:33 AM EDT [facility] Blood Venipuncture / Unknown 04/09/2025 4:18 AM EDT 04/09/2025 4:29 AM EDT Narrative [facility] - 04/09/2025 5:33 AM EDT GFR [...] ORDERABLES Fi nal Result Performing Organization Address [facility] Co de Phone Number [facility]
[address] [place] [address], * Wound Culture - Swab, Leg, Right (04/08/2025 3:40 PM EDT) Wound Culture No growth at 3 days ALIZA 04/11/2025 10:40 AM EDT [facility] Gram Stain Few (2+) WBCs seen 04/11/2025 10:40 AM EDT [facility] Gram Stain No organisms seen 04/11/2025 10:40 AM EDT [facility] Swab Structure of right lower limb / Unknown 04/08/2025 3:40 PM EDT 04/08/2025 8:05 PM EDT Sushil Dean Jr., MD MICROBIOLOGY - GENERAL ORDERABLES Final Result Performing Organization Address City/[facility]/ZIP Co de Phone Number [facility]
[address] [place] [phone], [facility]
[address] [place] [address], * Anaerobic Culture - Swab, Leg, Right (04/08/2025 3:40 PM EDT) Pathologist [facility] Anaerobic Culture No anaerobes isolated at 5 days ALIZA 04/13/2025 7:24 AM EDT [facility] Swab Structure of right lower limb / Unknown 04/08/2025 3:40 PM EDT 04/08/2025 8:05 PM EDT Sushil Dean Jr., MD MICROBIOLOGY - GENERAL ORDERABLES Final Result Performing Organization Address City/[facility] Co de Phone Number [facility]
[address] [place] [address], [place] [phone] * Scan Slide (04/08/2025 8:41 AM EDT) Pathologist [facility] RBC Morphology Normal Normal 04/08/2025 11:02 AM EDT [facility] WBC Morphology Normal Normal 04/08/2025 11:02 AM EDT [facility] Platelet Estimate Adequate Normal 04/08/2025 11:02 AM EDT [facility] Clumped Platelets Present None Seen 04/08/2025 11:02 AM EDT [facility] Blood Venipuncture / Unknown 04/08/2025 8:41 AM EDT 04/08/2025 9:10 AM EDT Una LundbergD LAB BLOOD ORDERABLES Final R esult Performing Organization Address City/[facility]/ZIP Co de Phone Number [facility]
[address] [place] [address], [place] [phone] * (ABNORMAL) CBC Auto Differential (04/08/2025 8:41 AM EDT) Pathologist [facility] WBC 10.07 3.40 - 10.80 10*3/mm3 04/08/2025 11:02 AM EDT [facility] RBC 5.01 4.14 - 5.80 10*6/mm3 04/08/2025 11:02 AM EDT [facility] Hemoglobin 14.0 13.0 - 17.7 g/dL 04/08/2025 11:02 AM [facility] Hematocrit 42.7 37.5 - 51.0 % 04/08/2025 11:02 AM [facility] MCV 85.2 79.0 - 97.0 fL 04/08/2025 11:02 AM [facility] MCH 27.9 26.6 - 33.0 pg 04/08/2025 11:02 AM [facility] MCHC 32.8 31.5 - 35.7 g/dL 04/08/2025 11:02 AM [facility] RDW 12.6 12.3 - 15.4 % 04/08/2025 11:02 AM [facility] RDW-SD 38.9 37.0 - 54.0 fl 04/08/2025 11:02 AM [facility] MPV 11.0 6.0 - 12.0 fL 04/08/2025 11:02 AM [facility] Platelets 118(L) 140 - 450 10*3/mm3 04/08/2025 11:02 AM [facility] Neutrophil % 85.1(H) 42.7 - 76.0 % 04/08/2025 11:02 AM [facility] Lymphocyte % 9.3(L) 19.6 - 45.3 % 04/08/2025 11:02 AM [facility] Monocyte % 4.6(L) 5.0 - 12.0 % 04/08/2025 11:02 AM [facility] Eosinophil % 0.3 0.3 - 6.2 % 04/08/2025 11:02 AM [facility] Basophil % 0.2 0.0 - 1.5 % 04/08/2025 11:02 AM [facility] Immature Grans % 0.5 0.0 - 0.5 % 04/08/2025 11:02 AM [facility] Neutrophils, Absolute 8.57(H) 1.70 - 7.00 10*3/mm3 04/08/2025 11:02 AM EDT [facility] Lymphocytes, Absolute 0.94 0.70 - 3.10 10*3/mm3 04/08/2025 11:02 AM EDT [facility] Monocytes, Absolute 0.46 0.10 - 0.90 10*3/mm3 04/08/2025 11:02 AM EDT [facility] Eosinophils, Absolute 0.03 0.00 - 0.40 10*3/mm3 04/08/2025 11:02 AM EDT [facility] Basophils, Absolute 0.02 0.00 - 0.20 10*3/mm3 04/08/2025 11:02 AM EDT [facility] Immature Grans, Absolute 0.05 0.00 - 0.05 10*3/mm3 04/08/2025 11:02 AM EDT [facility] nRBC 0.0 0.0 - 0.2 /100 WBC 04/08/2025 11:02 AM EDT [facility] Blood Venipuncture / Unknown 04/08/2025 8:41 AM EDT 04/08/2025 9:10 AM EDT Una Perla PharmD LAB BLOOD ORDERABLES Final R esult [facility]
[address] [place] [address], * (ABNORMAL) Basic Metabolic Panel (04/08/2025 8:41 AM EDT) Glucose 125(H) 65 - 99 mg/dL 04/08/2025 9:51 AM EDT [facility] BUN 13.2 6.0 - 20.0 mg/dL 04/08/2025 9:51 AM EDT [facility] Creatinine 0.69(L) 0.76 - 1.27 mg/dL 04/08/2025 9:51 AM EDT [facility] Sodium 136 136 - 145 mmol/L 04/08/2025 9:51 AM EDT [facility] Potassium 4.6 3.5 - 5.2 mmol/L 04/08/2025 9:51 AM EDT [facility] Chloride 102 98 - 107 mmol/L 04/08/2025 9:51 AM EDT [facility] CO2 23.5 22.0 - 29.0 mmol/L 04/08/2025 9:51 AM EDT [facility] Calcium 8.4(L) 8.6 - 10.5 mg/dL 04/08/2025 9:51 AM EDT [facility] BUN/Creatinine Ratio 19.1 7.0 - 25.0 04/08/2025 9:51 AM EDT [facility] Anion Gap 10.5 5.0 - 15.0 mmol/L 04/08/2025 9:51 AM EDT [facility] eGFR 117.0 >60.0 mL/min/1.7 3 04/08/2025 9:51 AM EDT [facility] Blood Venipuncture / Unknown 04/08/2025 8:41 AM EDT 04/08/2025 9:09 AM EDT [facility] - 04/08/2025 9:51 AM EDT [...] MD LAB BLOOD ORDERABLES nal Result [facility]
[address] [place] [address], * Heparin Anti-Xa (04/08/2025 8:41 AM EDT) Heparin Anti-Xa ([facility]) 0.33 0.30 - 0.70 IU/ml 04/08/2025 9:40 AM EDT [facility] Blood Venipuncture / Unknown 04/08/2025 8:41 AM EDT 04/08/2025 9:10 AM EDT Sushil Dean Jr., MD LAB BLOOD ORDERABLES Fi nal Result [facility]
[address] [place] [address], * FL C Arm During Surgery (04/07/2025 9:32 PM EDT) Narrative SYSTEMGENERATED, DOCUMENTATION - 04/07/2025 9:38 PM EDT This procedure was auto-finalized with no dictation required. Sushil Dean Jr., MD IMG FLUOROSCOPY ORDERAB LES Final Result * Wound Culture - Swab, Leg, Right (04/07/2025 9:14 PM EDT) Wound Culture No growth at 3 days ALIZA 04/11/2025 10:40 AM EDT [facility] Gram Stain Occasional WBCs seen 04/11/2025 10:40 AM EDT [facility] Gram Stain No organisms seen 04/11/2025 10:40 AM EDT [facility] Swab Structure of right lower limb / Unknown Collection / Unknown 04/07/2025 9:14 PM EDT 04/08/2025 4:36 AM EDT Sushil Dean Jr., MD MICROBIOLOGY - GENERAL ORDERABLES Final Result [facility]
[address] [place] [address], [facility]
[address] [place] [address], * Anaerobic Culture - Swab, Leg, Right (04/07/2025 9:14 PM EDT) Anaerobic Culture No anaerobes isolated at 5 days ALIZA 04/13/2025 7:21 AM EDT [facility] Swab Structure of right lower limb / Unknown Collection / Unknown 04/07/2025 9:14 PM EDT 04/08/2025 4:36 AM EDT Sushil Dean Jr., MD MICROBIOLOGY - GENERAL ORDERABLES Final Result Performing Organization Address City/[facility]/ZIP Co de Phone Number [facility]
[address] [place] [address], * Anaerobic Culture - Tissue, Leg (04/07/2025 9:13 PM EDT) Anaerobic Culture No anaerobes isolated at 5 days ALIZA 04/13/2025 7:21 AM EDT [facility] Tissue Lower limb structure / Unknown Collection / Unknown 04/07/2025 9:13 PM EDT 04/08/2025 4:54 AM EDT Jason Álvarez DO MICROBIOLOGY - GENERAL ORDERABLE S Final Result [facility]
[address] [place] [address], * Tissue / Bone Culture - Tissue, Leg, Right (04/07/2025 9:13 PM EDT) Tissue Culture No growth at 3 days ALIZA 04/11/2025 10:36 AM EDT [facility] Gram Stain Rare (1+) WBCs seen 04/11/2025 10:36 AM EDT [facility] Gram Stain No organisms seen 04/11/2025 10:36 AM EDT [facility] Tissue Structure of right lower limb / Unknown 04/07/2025 9:13 PM EDT 04/08/2025 4:54 AM EDT Sushil Dean Jr., MD MICROBIOLOGY - GENERAL ORDERABLES Final Result Performing Organization Address City/[facility]/ZIP Co de Phone Number [facility]
[address] [place] [address], [place] [phone] [facility]
[address] [place] [address], [place] [phone] * (ABNORMAL) Wound Culture - Swab, Leg, Right (04/07/2025 9:07 PM EDT) Wound Culture Light growth (2+) Staphylococcus aureus, MRSA(A) ALIZA 04/10/2025 10:38 AM EDT [facility] Comment: Methicillin resistant Staphylococcus aureus, Patient may be an isolation risk. Gram Stain Few (2+) WBCs seen 04/10/2025 10:38 AM EDT [facility] Gram Stain No organisms seen 10:38 AM EDT [facility] Swab Structure of right lower limb [...] MD MICROBIOLOGY - GENERAL ORDERABLES Final Result [facility]
[address] [place] [address], [facility]
[address] [place] [address], * Anaerobic Culture - Swab, Leg, Right (04/07/2025 9:07 PM EDT) Pathologist [facility] Anaerobic Culture No anaerobes isolated at 5 days ALIZA 04/13/2025 7:21 AM EDT [facility] Swab Structure of right lower limb / Unknown Collection / Unknown 04/07/2025 9:07 PM EDT 04/08/2025 4:36 AM EDT Sushil Dean Jr., MD MICROBIOLOGY - GENERAL ORDERABLES Final Result Performing Organization Address [facility] Co de Phone Number [facility]
[address] [place] [address], * Heparin Anti-Xa (04/07/2025 9:10 AM EDT) [facility] Heparin Anti-Xa (UFH) 0.30 0.30 - 0.70 IU/ml 04/07/2025 10:12 AM EDT [facility] Blood Venipuncture / Unknown 04/07/2025 9:10 AM EDT 04/07/2025 9:38 AM EDT Una LundbergD LAB BLOOD ORDERABLES Final R esult Performing Organization Address City/[facility]/ZIP Co de Phone Number [facility]
[address] [place] [address], * (ABNORMAL) CBC Auto Differential (04/07/2025 9:10 AM EDT) Pathologist [facility] WBC 8.63 3.40 - 10.80 10*3/mm3 04/07/2025 9:50 AM EDT [facility] RBC 5.23 4.14 - 5.80 10*6/mm3 04/07/2025 9:50 AM [facility] Hemoglobin 14.7 13.0 - 17.7 g/dL 04/07/2025 9:50 AM [facility] Hematocrit 44.8 37.5 - 51.0 % 04/07/2025 9:50 AM [facility] MCV 85.7 79.0 - 97.0 fL 04/07/2025 9:50 AM EDT [facility] MCH 28.1 26.6 - 33.0 pg 04/07/2025 9:50 AM [facility] MCHC 32.8 31.5 - 35.7 g/dL 04/07/2025 9:50 AM [facility] RDW 12.8 12.3 - 15.4 % 04/07/2025 9:50 AM [facility] RDW-SD 39.9 37.0 - 54.0 fl 04/07/2025 9:50 AM [facility] MPV 10.8 6.0 - 12.0 fL 04/07/2025 9:50 AM [facility] Platelets 149 140 - 450 10*3/mm3 04/07/2025 9:50 AM [facility] Neutrophil % 66.7 42.7 - 76.0 % 04/07/2025 9:50 AM [facility] Lymphocyte % 20.5 19.6 - 45.3 % 04/07/2025 9:50 AM EDT [facility] Monocyte % 9.8 5.0 - 12.0 % 04/07/2025 9:50 AM [facility] Eosinophil % 2.1 0.3 - 6.2 % 04/07/2025 9:50 AM [facility] Basophil % 0.3 0.0 - 1.5 % 04/07/2025 9:50 AM [facility] Immature Grans % 0.6(H) 0.0 - 0.5 % 04/07/2025 9:50 AM EDT [facility] Neutrophils, Absolute 5.75 1.70 - 7.00 10*3/mm3 04/07/2025 9:50 AM EDT [facility] Lymphocytes, Absolute 1.77 0.70 - 3.10 10*3/mm3 04/07/2025 9:50 AM EDT [facility] Monocytes, Absolute 0.85 0.10 - 0.90 10*3/mm3 04/07/2025 9:50 AM EDT [facility] Eosinophils, Absolute 0.18 0.00 - 0.40 10*3/mm3 04/07/2025 9:50 AM EDT [facility] Basophils, Absolute 0.03 0.00 - 0.20 10*3/mm3 04/07/2025 9:50 AM EDT [facility] Immature Grans, Absolute 0.05 0.00 - 0.05 10*3/mm3 04/07/2025 9:50 AM EDT [facility] nRBC 0.0 0.0 - 0.2 /100 WBC 04/07/2025 9:50 AM EDT [facility] Blood Venipuncture / Unknown 04/07/2025 9:10 AM EDT 04/07/2025 9:38 AM EDT us aJson Álvarez DO LAB BLOOD ORDERABLES Final Resul t [facility]
[address] [place] [address], * (ABNORMAL) Basic Metabolic Panel (04/07/2025 9:10 AM EDT) Glucose 112(H) 65 - 99 mg/dL 04/07/2025 10:19 AM EDT [facility] BUN 13.1 6.0 - 20.0 mg/dL 04/07/2025 10:19 AM EDT [facility] Creatinine 0.77 0.76 - 1.27 mg/dL 04/07/2025 10:19 AM EDT [facility] Sodium 139 136 - 145 mmol/L 04/07/2025 10:19 AM EDT [facility] Potassium 4.2 3.5 - 5.2 mmol/L 04/07/2025 10:19 AM EDT [facility] Comment:Specimen hemolyzed. Result may be falsely elevated. Chloride 105 98 - 107 mmol/L 04/07/2025 10:19 AM EDT [facility] CO2 24.8 22.0 - 29.0 mmol/L 04/07/2025 10:19 AM EDT [facility] Calcium 8.6 8.6 - 10.5 mg/dL 04/07/2025 10:19 AM T [facility] BUN/Creatinine Ratio 17.0 7.0 - 25.0 04/07/2025 10:19 AM EDT [facility] Anion Gap 9.2 5.0 - 15.0 mmol/L 04/07/2025 10:19 AM T [facility] eGFR 113.2 >60.0 mL/min/1.7 3 04/07/2025 10:19 AM T [facility] Blood Venipuncture / Unknown 04/07/2025 9:10 AM EDT 04/07/2025 9:38 AM EDT Narrative [facility] - 04/07/2025 10:19 AM EDT GFR [...] LAB BLOOD ORDERABLES Final Resul t [facility]
[address] [place] [address], * MRI Tibia Fibula Right With & [...] [place] 04/07/2025 9:58 AM EDT Workstation ID: [id number] Narrative 04/07/2025 9:58 AM EDT MRI TIBIA [...] [place] 04/07/2025 9:58 AM EDT Workstation ID: [id number] us Sushil Dean Jr., MD [facility] [place] ORDERABLES Mary Beth l Result * Heparin Anti-Xa (04/07/2025 1:42 AM EDT) Heparin Anti-Xa (UFH) 0.38 0.30 - 0.70 IU/ml 04/07/2025 2:14 AM EDT [facility] Blood Venipuncture / Unknown 04/07/2025 1:42 AM EDT 04/07/2025 1:54 AM EDT Chelsie Navarretesapna [facility] LAB BLOOD ORDERABLES Final R esult Performing Organization Address City/[facility]/ZIP Co de Phone Number [facility]
[address] [place] [address], * Heparin Anti-Xa (04/06/2025 7:16 PM EDT) Pathologist [facility] Heparin Anti-Xa (UFH) 0.33 0.30 - 0.70 IU/ml 04/06/2025 7:50 PM EDT [facility] Blood Venipuncture / Unknown 04/06/2025 7:16 PM EDT 04/06/2025 7:35 PM EDT Cherri Beatty [facility] LAB BLOOD ORDERABLES Final Res ult Performing Organization Address City/[facility] Co de Phone Number [facility]
[address] [place] [address], * Potassium (04/06/2025 7:16 PM EDT) Pathologist [facility] Potassium 4.0 3.5 - 5.2 mmol/L 04/06/2025 7:53 PM EDT [facility] Blood Venipuncture / Unknown 04/06/2025 7:16 PM EDT 04/06/2025 7:35 PM EDT Jason Álvarez DO LAB BLOOD ORDERABLES Final Resul t Performing Organization Address City/[facility]/ZIP Co de Phone Number [facility]
[address] [place] [address], * (ABNORMAL) Heparin Anti-Xa (04/06/2025 12:36 PM EDT) Heparin Anti-Xa (UFH) 0.24(L) 0.30 - 0.70 IU/ml 04/06/2025 1:23 PM EDT [facility] Blood Venipuncture / Unknown 04/06/2025 12:36 PM EDT 04/06/2025 1:07 PM EDT Una LundbergD LAB BLOOD ORDERABLES Final R esult [facility]
[address] [place] [address], * (ABNORMAL) Heparin Anti-Xa (04/06/2025 3:42 AM EDT) [facility] Heparin Anti-Xa (UFH) 0.25(L) 0.30 - 0.70 IU/ml 04/06/2025 5:30 AM EDT [facility] Blood Venipuncture / Unknown 04/06/2025 3:42 AM EDT 04/06/2025 4:59 AM EDT Chelsie Turpin [facility] LAB BLOOD ORDERABLES Final R esult [facility]
[address] [place] [address], * (ABNORMAL) Basic Metabolic Panel (04/06/2025 3:42 AM EDT) [facility] Glucose 94 65 - 99 mg/dL 04/06/2025 5:59 AM EDT [facility] BUN 12.8 6.0 - 20.0 mg/dL 04/06/2025 5:59 AM EDT [facility] Creatinine 0.80 0.76 - 1.27 mg/dL 04/06/2025 5:59 AM EDT [facility] Sodium 138 136 - 145 mmol/L 04/06/2025 5:59 AM EDT [facility] Potassium 3.6 3.5 - 5.2 mmol/L 04/06/2025 5:59 AM EDT [facility] Chloride 103 98 - 107 mmol/L 04/06/2025 5:59 AM EDT [facility] CO2 24.2 22.0 - 29.0 mmol/L 04/06/2025 5:59 AM EDT [facility] Calcium 8.0(L) 8.6 - 10.5 mg/dL 04/06/2025 5:59 AM EDT [facility] BUN/Creatinine Ratio 16.0 7.0 - 25.0 04/06/2025 5:59 AM EDT [facility] Anion Gap 10.8 5.0 - 15.0 mmol/L 04/06/2025 5:59 AM EDT [facility] eGFR 111.9 >60.0 mL/min/1.7 3 04/06/2025 5:59 AM EDT [facility] Blood Venipuncture / Unknown 04/06/2025 3:42 AM EDT 04/06/2025 5:20 AM EDT Narrative [facility] - 04/06/2025 5:59 AM EDT GFR [...] LAB BLOOD ORDERABLES Final Resul t [facility]
[address] [place] [address], * (ABNORMAL) CBC Auto Differential (04/06/2025 3:41 AM EDT) WBC 10.86(H) 3.40 - 10.80 10*3/mm3 04/06/2025 5:04 AM EDT [facility] RBC 5.08 4.14 - 5.80 10*6/mm3 04/06/2025 5:04 AM EDT [facility] Hemoglobin 13.9 13.0 - 17.7 g/dL 04/06/2025 5:04 AM EDT [facility] Hematocrit 43.7 37.5 - 51.0 % 04/06/2025 5:04 AM EDT [facility] MCV 86.0 79.0 - 97.0 fL 04/06/2025 5:04 AM EDT [facility] MCH 27.4 26.6 - 33.0 pg 04/06/2025 5:04 AM EDT [facility] MCHC 31.8 31.5 - 35.7 g/dL 04/06/2025 5:04 AM EDT [facility] RDW 12.8 12.3 - 15.4 % 04/06/2025 5:04 AM EDT [facility] RDW-SD 40.0 37.0 - 54.0 fl 04/06/2025 5:04 AM EDT [facility] MPV 11.7 6.0 - 12.0 fL 04/06/2025 5:04 AM EDT [facility] Platelets 115(L) 140 - 450 10*3/mm3 04/06/2025 5:04 AM EDT [facility] Neutrophil % 65.3 42.7 - 76.0 % 04/06/2025 5:04 AM EDT [facility] Lymphocyte % 20.5 19.6 - 45.3 % 04/06/2025 5:04 AM EDT [facility] Monocyte % 11.8 5.0 - 12.0 % 04/06/2025 5:04 AM EDT [facility] Eosinophil % 1.8 0.3 - 6.2 % 04/06/2025 5:04 AM EDT [facility] Basophil % 0.3 0.0 - 1.5 % 04/06/2025 5:04 AM EDT [facility] Immature Grans % 0.3 0.0 - 0.5 % 04/06/2025 5:04 AM EDT [facility] Neutrophils, Absolute 7.09(H) 1.70 - 7.00 10*3/mm3 04/06/2025 5:04 AM EDT [facility] Lymphocytes, Absolute 2.23 0.70 - 3.10 10*3/mm3 04/06/2025 5:04 AM EDT [facility] Monocytes, Absolute 1.28(H) 0.10 - 0.90 10*3/mm3 04/06/2025 5:04 AM EDT [facility] Eosinophils, Absolute 0.20 0.00 - 0.40 10*3/mm3 04/06/2025 5:04 AM EDT [facility] Basophils, Absolute 0.03 0.00 - 0.20 10*3/mm3 04/06/2025 5:04 AM EDT [facility] Immature Grans, Absolute 0.03 0.00 - 0.05 10*3/mm3 04/06/2025 5:04 AM EDT [facility] nRBC 0.0 0.0 - 0.2 /100 WBC 04/06/2025 5:04 AM EDT [facility] Blood Venipuncture / Unknown 04/06/2025 3:41 AM EDT 04/06/2025 4:58 AM EDT us Jason Álvarez DO LAB BLOOD ORDERABLES Final Resul t [facility]
[address] [place] [address], * Heparin Anti-Xa (04/05/2025 8:43 PM EDT) Heparin Anti-Xa (UFH) 0.38 0.30 - 0.70 IU/ml 04/05/2025 9:09 PM EDT [facility] Blood Venipuncture / Unknown 04/05/2025 8:43 PM EDT 04/05/2025 8:55 PM EDT Cherri Beatty [facility] LAB BLOOD ORDERABLES Final Res ult Performing Organization Address [facility] Co de Phone Number [facility]
[address] [place] [address], * CK (04/05/2025 12:15 PM EDT) Creatine Kinase 140 20 - 200 U/L 04/05/2025 1:31 PM EDT [facility] Blood Venipuncture / Unknown 04/05/2025 12:15 PM EDT 04/05/2025 1:03 PM EDT Carlton Mead MD LAB BLOOD ORDERABLES Final R esult Performing Organization Address [facility] Co de Phone Number [facility]
[address] [place] [address], [place] [phone] * (ABNORMAL) Heparin Anti-Xa (04/05/2025 12:15 PM EDT) Heparin Anti-Xa (UFH) 0.17(L) 0.30 - 0.70 IU/ml 04/05/2025 1:21 PM EDT [facility] Blood Venipuncture / Unknown 04/05/2025 12:15 PM EDT 04/05/2025 1:04 PM EDT Una LundbergD LAB BLOOD ORDERABLES Final R esult Performing Organization Address City/[facility]/ZIP Co de Phone Number [facility]
[address] [place] [address], * (ABNORMAL) aPTT (04/05/2025 3:54 AM EDT) [facility] PTT 35.3(L) 60.0 - 90.0 seconds 04/05/2025 4:31 AM EDT [facility] Blood Venipuncture / Unknown 04/05/2025 3:54 AM EDT 04/05/2025 4:15 AM EDT Narrative [facility] - 04/05/2025 4:31 AM EDT PTT = The equivalent PTT values for the therapeutic range of heparin levels at 0.3 to 0.5 U/ml are 60 to 70 seconds. Una Perla [employer]D LAB BLOOD ORDERABLES Final R esult Performing Organization Address [facility] Co de Phone Number [facility]
[address] [place] [address], * Heparin Anti-Xa (04/05/2025 3:54 AM EDT) [facility] Heparin Anti-Xa (UFH) 0.30 0.30 - 0.70 IU/ml 04/05/2025 4:32 AM EDT [facility] Blood Venipuncture / Unknown 04/05/2025 3:54 AM EDT 04/05/2025 4:15 AM EDT [email or web address] LAB BLOOD ORDERABLES Final R esult Performing Organization Address City/[facility] Co de Phone Number [facility]
[address] [place] [address], * (ABNORMAL) CBC Auto Differential (04/05/2025 3:54 AM EDT) [facility] WBC 11.18(H) 3.40 - 10.80 10*3/mm3 04/05/2025 4:20 AM EDT [facility] RBC 5.00 4.14 - 5.80 10*6/mm3 04/05/2025 4:20 AM EDT [facility] Hemoglobin 13.9 13.0 - 17.7 g/dL 04/05/2025 4:20 AM EDT [facility] Hematocrit 42.4 37.5 - 51.0 % 04/05/2025 4:20 AM EDT [facility] MCV 84.8 79.0 - 97.0 fL 04/05/2025 4:20 AM EDT [facility] MCH 27.8 26.6 - 33.0 pg 04/05/2025 4:20 AM [facility] MCHC 32.8 31.5 - 35.7 g/dL 04/05/2025 4:20 AM [facility] RDW 12.9 12.3 - 15.4 % 04/05/2025 4:20 AM [facility] RDW-SD 39.7 37.0 - 54.0 fl 04/05/2025 4:20 AM [facility] MPV 10.2 6.0 - 12.0 fL 04/05/2025 4:20 AM [facility] Platelets 160 140 - 450 10*3/mm3 04/05/2025 4:20 AM [facility] Neutrophil % 73.5 42.7 - 76.0 % 04/05/2025 4:20 AM [facility] Lymphocyte % 14.0(L) 19.6 - 45.3 % 04/05/2025 4:20 AM EDT [facility] Monocyte % 11.0 5.0 - 12.0 % 04/05/2025 4:20 AM [facility] Eosinophil % 0.8 0.3 - 6.2 % 04/05/2025 4:20 AM [facility] Basophil % 0.3 0.0 - 1.5 % 04/05/2025 4:20 AM EDT [facility] Immature Grans % 0.4 0.0 - 0.5 % 04/05/2025 4:20 AM EDT [facility] Neutrophils, Absolute 8.23(H) 1.70 - 7.00 10*3/mm3 04/05/2025 4:20 AM EDT [facility] Lymphocytes, Absolute 1.56 0.70 - 3.10 10*3/mm3 04/05/2025 4:20 AM EDT [facility] Monocytes, Absolute 1.23(H) 0.10 - 0.90 10*3/mm3 04/05/2025 4:20 AM EDT [facility] Eosinophils, Absolute 0.09 0.00 - 0.40 10*3/mm3 04/05/2025 4:20 AM EDT [facility] Basophils, Absolute 0.03 0.00 - 0.20 10*3/mm3 04/05/2025 4:20 AM EDT [facility] Immature Grans, Absolute 0.04 0.00 - 0.05 10*3/mm3 04/05/2025 4:20 AM EDT [facility] nRBC 0.0 0.0 - 0.2 /100 WBC 04/05/2025 4:20 AM EDT [facility] Blood Venipuncture / Unknown 04/05/2025 3:54 AM EDT 04/05/2025 4:16 AM EDT Una Perla PharmD LAB BLOOD ORDERABLES Final R esult [facility]
[address] [place] [address], * (ABNORMAL) Basic Metabolic Panel (04/05/2025 3:54 AM EDT) [facility] Signature Glucose 152(H) 65 - 99 mg/dL 04/05/2025 4:40 AM EDT [facility] BUN 17.3 6.0 - 20.0 mg/dL 04/05/2025 4:40 AM T [facility] Creatinine 0.92 0.76 - 1.27 mg/dL 04/05/2025 4:40 AM EDT [facility] Sodium 136 136 - 145 mmol/L 04/05/2025 4:40 AM EDT [facility] Potassium 3.9 3.5 - 5.2 mmol/L 04/05/2025 4:40 AM EDT [facility] Chloride 103 98 - 107 mmol/L 04/05/2025 4:40 AM EDT [facility] CO2 24.0 22.0 - 29.0 mmol/L 04/05/2025 4:40 AM T [facility] Calcium 7.8(L) 8.6 - 10.5 mg/dL 04/05/2025 4:40 AM [facility] BUN/Creatinine Ratio 18.8 7.0 - 25.0 04/05/2025 4:40 AM T [facility] Anion Gap 9.0 5.0 - 15.0 mmol/L 04/05/2025 4:40 AM [facility] eGFR 105.2 >60.0 mL/min/1.7 3 04/05/2025 4:40 AM [facility] Blood Venipuncture / Unknown 04/05/2025 3:54 AM EDT 04/05/2025 4:15 AM EDT [facility] - 04/05/2025 4:40 AM EDT [...] ORDERABLES Final Re sult Performing Organization Address [facility] Co de Phone Number [facility]
[address] [place] [address], * (ABNORMAL) aPTT (04/05/2025 12:18 AM EDT) PTT 33.6(L) 60.0 - 90.0 seconds 04/05/2025 12:53 AM EDT [facility] Blood Venipuncture / Unknown 04/05/2025 12:18 AM EDT 04/05/2025 12:37 AM EDT Narrative [facility] - 04/05/2025 12:53 AM EDT PTT = The equivalent PTT values for the therapeutic range of heparin levels at 0.3 to 0.5 U/ml are 60 to 70 seconds. Una Perla PharmD LAB BLOOD ORDERABLES Final R esult Performing Organization Address [facility] Co de Phone Number [facility]
[address] [place] [address], [place] [phone] * (ABNORMAL) Protime-INR (04/05/2025 12:18 AM EDT) Protime 15.9(H) 12.2 - 15.3 Seconds 04/05/2025 12:53 AM EDT [facility] INR 1.19(H) 0.89 - 1.12 04/05/2025 12:53 AM EDT [facility] Blood Venipuncture / Unknown 04/05/2025 12:18 AM EDT 04/05/2025 12:37 AM EDT Una Perla PharmD LAB BLOOD ORDERABLES Final R esult Performing Organization Address [facility] Co de Phone Number [facility]
[address] [place] [address], [place] [phone] * Heparin Anti-Xa (04/05/2025 12:18 AM EDT) Heparin Anti-Xa ([facility]) 0.39 0.30 - 0.70 IU/ml 04/05/2025 12:54 AM EDT [facility] Blood Venipuncture / Unknown 04/05/2025 12:18 AM EDT 04/05/2025 12:37 AM EDT Una Perla PharmD LAB BLOOD ORDERABLES Final R esult [facility]
[address] [place] [address], * MRI Tibia Fibula Right With & [...] MD 04/04/2025 11:00 PM EDT Workstation ID: [id number] Narrative 04/04/2025 11:00 PM EDT MRI TIBIA [...] MD 04/04/2025 11:00 PM EDT Workstation ID: [id number] us Leonora Shepherd MD IMG MRI ORDERABLES Final Resu lt * POC Creatinine (04/04/2025 2:49 PM EDT) [facility] Creatinine 1.10 0.60 - 1.30 mg/dL 04/07/2025 7:14 PM EDT [facility] Comment:Serial Number: [id number] 7Operator: [id number] Venous Blood 04/04/2025 2:49 PM EDT 04/07/2025 7:14 PM EDT Jason Álvarez DO POINT OF CARE TEST ORDERABLES Fi nal Result [facility]
[address] [place] [address], * (ABNORMAL) CBC Auto Differential (04/04/2025 2:47 PM EDT) [facility] WBC 12.72(H) 3.40 - 10.80 10*3/mm3 04/04/2025 2:56 PM EDT [facility] RBC 5.64 4.14 - 5.80 10*6/mm3 04/04/2025 2:56 PM EDT [facility] Hemoglobin 15.3 13.0 - 17.7 g/dL 04/04/2025 2:56 PM EDT [facility] Hematocrit 47.9 37.5 - 51.0 % 04/04/2025 2:56 PM EDT [facility] MCV 84.9 79.0 - 97.0 fL 04/04/2025 2:56 PM EDT [facility] MCH 27.1 26.6 - 33.0 pg 04/04/2025 2:56 PM EDT [facility] MCHC 31.9 31.5 - 35.7 g/dL 04/04/2025 2:56 PM EDT [facility] RDW 13.1 12.3 - 15.4 % 04/04/2025 2:56 [facility] RDW-SD 40.3 37.0 - 54.0 fl 04/04/2025 2:56 PM EDT [facility] MPV 9.4 6.0 - 12.0 fL 04/04/2025 2:56 PM EDT [facility] Platelets 232 140 - 450 10*3/mm3 04/04/2025 2:56 PM EDT [facility] Neutrophil % 74.9 42.7 - 76.0 % 04/04/2025 2:56 PM EDT [facility] Lymphocyte % 13.1(L) 19.6 - 45.3 % 04/04/2025 2:56 PM [facility] Monocyte % 11.2 5.0 - 12.0 % 04/04/2025 2:56 PM [facility] Eosinophil % 0.4 0.3 - 6.2 % 04/04/2025 2:56 PM EDT [facility] Basophil % 0.2 0.0 - 1.5 % 04/04/2025 2:56 PM [facility] Immature Grans % 0.2 0.0 - 0.5 % 04/04/2025 2:56 PM [facility] Neutrophils, Absolute 9.52(H) 1.70 - 7.00 10*3/mm3 04/04/2025 2:56 PM [facility] Lymphocytes, Absolute 1.66 0.70 - 3.10 10*3/mm3 04/04/2025 2:56 PM EDT [facility] Monocytes, Absolute 1.43(H) 0.10 - 0.90 10*3/mm3 04/04/2025 2:56 PM EDT [facility] Eosinophils, Absolute 0.05 0.00 - 0.40 10*3/mm3 04/04/2025 2:56 PM [facility] Basophils, Absolute 0.03 0.00 - 0.20 10*3/mm3 04/04/2025 2:56 PM EDT [facility] Immature Grans, Absolute 0.03 0.00 - 0.05 10*3/mm3 04/04/2025 2:56 PM EDT [facility] nRBC 0.0 0.0 - 0.2 /100 WBC 04/04/2025 2:56 PM EDT [facility] Blood Venipuncture / Unknown 04/04/2025 2:47 PM EDT 04/04/2025 2:52 PM EDT [facility] BLOOD ORDERABLES Fin al Result Performing Organization Address City/[facility]/ZIP Co de Phone Number [facility]
[address] [place] [address], * (ABNORMAL) C-reactive Protein (04/04/2025 2:47 PM EDT) C-Reactive Protein 8.57(H) 0.00 - 0.50 mg/dL 04/04/2025 3:26 PM EDT [facility] Blood Venipuncture / Unknown 04/04/2025 2:47 PM EDT 04/04/2025 2:52 PM EDT [facility] BLOOD ORDERABLES Fin al Result Performing Organization Address [facility] de Phone Number [facility]
[address] [place] [address], * (ABNORMAL) Sedimentation Rate (04/04/2025 2:47 PM EDT) Sed Rate 51(H) 0 - 15 mm/hr 04/04/2025 3:06 PM EDT [facility] Blood Venipuncture / Unknown 04/04/2025 2:47 PM EDT 04/04/2025 2:52 PM EDT [facility] BLOOD ORDERABLES Fin al Result Performing Organization Address City/[facility]/ZIP Co de Phone Number [facility]
[address] [place] [address], * Comprehensive Metabolic Panel (04/04/2025 2:47 PM EDT) [facility] Glucose 90 65 - 99 mg/dL 04/04/2025 3:26 PM EDT [facility] BUN 18.3 6.0 - 20.0 mg/dL 04/04/2025 3:26 PM EDT [facility] Creatinine 0.94 0.76 - 1.27 mg/dL 04/04/2025 3:26 PM EDT [facility] Sodium 136 136 - 145 mmol/L 04/04/2025 3:26 PM EDT [facility] Potassium 3.8 3.5 - 5.2 mmol/L 04/04/2025 3:26 PM EDT [facility] Chloride 100 98 - 107 mmol/L 04/04/2025 3:26 PM EDT [facility] CO2 25.3 22.0 - 29.0 mmol/L 04/04/2025 3:26 PM EDT [facility] Calcium 8.6 8.6 - 10.5 mg/dL 04/04/2025 3:26 PM EDT [facility] Total Protein 7.3 6.0 - 8.5 g/dL 04/04/2025 3:26 PM EDT [facility] Albumin 4.1 3.5 - 5.2 g/dL 04/04/2025 3:26 PM EDT [facility] ALT (SGPT) 26 1 - 41 U/L 04/04/2025 3:26 PM EDT [facility] AST (SGOT) 25 1 - 40 U/L 04/04/2025 3:26 PM EDT [facility] Alkaline Phosphatase 106 39 - 117 U/L 04/04/2025 3:26 PM EDT [facility] Total Bilirubin 1.0 0.0 - 1.2 mg/dL 04/04/2025 3:26 PM EDT [facility] Globulin 3.2 gm/dL 04/04/2025 3:26 PM EDT [facility] Comment:Calculated Result A/G Ratio 1.3 g/dL 04/04/2025 3:26 PM EDT [facility] BUN/Creatinine Ratio 19.5 7.0 - 25.0 04/04/2025 3:26 PM EDT [facility] Anion Gap 10.7 5.0 - 15.0 mmol/L 04/04/2025 3:26 PM EDT [facility] eGFR 102.5 >60.0 mL/min/1.7 3 04/04/2025 3:26 PM EDT [facility] Blood Venipuncture / Unknown 04/04/2025 2:47 PM EDT 04/04/2025 2:52 PM EDT Narrative [facility] - 04/04/2025 3:26 PM EDT GFR [...] LAB BLOOD ORDERABLES Fin al Result [facility]
[address] [place] [address], documented in this encounter Visit Diagnoses Diagnosis [...] 04/05/2025 3:33 PM EDT 2,000 Units heparin 88871 units/250 mL (100 units/mL) in 0.45 % [...] BPA Driven Protocol Open Order & Select [facility] Electrolyte Replacement Protocol Algorithm to View Details [...] BPA Driven Protocol Open Order & Select [facility] Electrolyte Replacement Protocol Algorithm to View Details [...] disposal. 0831 (Given - Provider: Amber Salazar, [employer])194 (Given - Provider: Anahy Marcelino, [employer])2129 (Canceled Entry - Provider: Anahy Marcelino RRT [...] Continuous Medication Order 04/09/2025 04/10/2025 04/11/2025 heparin 49922 units/250 mL (100 units/mL) in 0.45 % [...] Provider: Shirley Hart, LU)1220 (Given - Provider: Shilrey Hart, RN)1438 (Given - Provider: Shirley Hart, [...] BPA Driven Protocol Open Order & Select [facility] Electrolyte Replacement Protocol Algorithm to View Details [...] BPA Driven Protocol Open Order & Select [facility] Electrolyte Replacement Protocol Algorithm to View Details [...] documented as of this encounter 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
--- OUTSIDE RECORDS SUMMARY | 2025-04-07 18:00 | XMS_ITS | Encounter Summary ---
[facility] Address [address] [place] [address] Care Team Providers Care Sound Tester Name Role Phone Provider, No Known Primary Care Provider Unavail able Reason for Visit * Reason Comments Leg Swelling * Auth/Cert Specialty Diagnoses / Procedures Referred By Contac t Referred To Contact Diagnoses Right BKA infection Referral ID Status Reason Start Date Expiration Date Visits Re quested Visits Authorized [id number] 1 1 Encounter Details Date Type Department Care Team (Late st Contact Info) Description 04/07/2025 6:00 PM EDT - 04/07/2025 6:52 PM EDT Surgery [facility] OR [address] [place] [address] Sushil Dean Jr., MD [address] [place] [address] [address] [id number] LEG DEBRIDEMENT, IRRIGATION Social History Tobacco Use Types Packs/Day Years Used Date Smoking Tobacco: Never Smokeless Tobacco: Never Tobacco Cessation:Counseling Given: Not Answered Alcohol Use Standard Drinks/Week Comments Not Currently 0 (1 standard drink = 0.6 oz pur e alcohol) [facility] Utilities Answer Date Recorded In the past 12 months has [employer] electric, gas, oil, or water company [...] 2:25 PM EDT Cherri Grimm RN * [place] Suicide Severity Rating Scale (Screener/Recent Self-Report) Question [...] Date/Time Wound Culture - Swab, Leg, Right [[id number]] (Abnormal) (Susceptibility) Collected: 04/07/252106 Lab Status: Final [...] Units Date/Time FL C Arm During Surgery [[id number]] Resulted: 04/07/252137 Updated: 04/07/252137 Narrative: This procedure was auto-finalized with no dictation required. MRI Tibia Fibula Right With & Without Contrast [[id number]] Collected: 04/07/25 0938 Updated: 04/07/25 1001 Narrative: [...] Buenrostro 04/07/2025 9:58 AM EDT Workstation ID: [id number] MRI Tibia Fibula Right With & Without Contrast [[id number]] Collected: 04/04/252256 Updated: 04/04/252302 Narrative: MRI TIBIA [...] represent a small area of phlegmonous change ([id number] image 10) measuring approximately 1.6 cm which [...] MD 04/04/2025 11:00 PM EDT Workstation ID: [id number] Pending Labs Order Current Status Fungus Culture [...] Male) Date of 1980 Social Security Number [id number] [place] [address] [place] [address] Congregation Unknown Marital Status Unknown Admission Date [...] Group [place] [id number] Payor Plan Address Payor Plan Phone Number Payor Plan Fax Number Effective Dates [employer] [address] [address] 08/10/2023 - None Entered [facility] [address] Subscriber Name Subscriber Date Member ID WON DENNIS 1980 [id number] Emergency Contacts Recycling Tech (Rel.) Home Phone Work Phone Mobile Phone Avril Dennis (Spouse) -- -- [phone] Robert Hackett (Relative) -- -- [phone] [facility] [address]G [address] [facility] [address] Patient: ROOM: [facility] Won Dennis [address] [facility] [place] [address] : 1980 SSN: [id number] Sex: M PCP: Provider, No Known Emergency Contact Information Name Relation Home Work Mobile Avril Dennis Spouse [phone] Other Contacts Name Relation Home Work Mobile Robert Hackett Relative [phone] INSURANCE PAYOR PLAN GROUP # SUBSCRIBER ID Primary: Secondary: MEDICARE [place]ICAID [place] [id number] Admitting Diagnosis: 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] Order Date: Apr 09, 2025 Case Management Marketing Production Specialist Consult (Order ID: [id number]) Diagnosis: Priority: Routine Expected Date: Expiration Date: [...] INFECTIOUS DISEASE Progress Note Won Dennis 1980 [id number] Date of Consult: 04/10/2025 Admission Date: 04/04/2025 [...] Jr., MD, 20 mg at 04/09/25906 heparin 19666 units/250 mL (100 units/mL) in 0.45 % [...] Units Date/Time FL C Arm During Surgery [[id number]] Resulted: 04/07/252137 Updated: 04/07/252137 Narrative: This procedure was auto-finalized with no dictation required. MRI Tibia Fibula Right With & Without Contrast [[id number]] Collected: 04/07/2538 Updated: 04/07/25 1001 Narrative: MRI [...] Buenrostro 04/07/2025 9:58 AM EDT Workstation ID: [id number] Impression: Recurrent Right BKA stump abscess/cellulitis- this [...] disposition with the pharmacist at [facility] today. I will sign off Outpatient orders: 1. Outpatient intravenous antibiotic therapy: Daptomycin 800 mg IV daily to be supplied by [facility] 2. Home health to perform weekly PICC [...] 04/10/251323 Creation Time: 04/10/251323 Signed Expand All [facility] Medicine Services PROGRESS NOTE Patient Name: [...] Date/Time Wound Culture - Swab, Leg, Right [[id number]] (Abnormal) (Susceptibility) Collected: 04/07/252106 Lab Status: Final [...] Row Name 04/06/25 1143 Sit-Stand Transfer Sit-Stand Barbour (Transfers) modified independence - Comment, (Sit-Stand Transfer) Pt stood from recliner. Not holding onto walker, pt able to pull his pants up while balancing on his one leg. -LM Row Name 04/06/25 1143 Gait/Stairs (Locomotion) Barbour Level (Gait) modified independence - Distance in [...] Motion bilateral lower extremity ROM WFL -LM [facility] Name 04/06/25 1145 Strength Comprehensive (MMT) General Manual Muscle Testing (MMT) Assessment no strength deficits identified BLEs -LM [facility] Name 04/06/25 1145 Balance [...] Physical Therapist Goals/Plan No documentation. Clinical Impression [facility] 04/06/25 1146 Pain Pretreatment Pain Rating 0/10 - no pain -LM Posttreatment Pain Rating 0/10 - no pain -LM [facility] 04/06/25 1146 Plan of Care Review Plan of Care Reviewed With patient -LM Outcome Evaluation PT evaluation completed. Pt demonstrated independence with all mobility including ambulating 100 feet using rw - no unsteadiness noted. Pt reports he feels at baseline and doesn't think he needs skilled PT while here. Recommend home at d/c. PT signing off. -LM [facility] Name 04/06/25 1146 Therapy Assessment/Plan (PT) Criteria for Skilled Interventions Met (PT) no;no problems identified which require skilled intervention -LM Therapy Frequency (PT) evaluation only -LM Predicted Duration of Therapy Intervention (PT) Eval Only -LM [facility] Name 04/06/25 1146 Vital Signs Pretreatment Heart Rate (beats/min) 86 -LM Posttreatment Heart Rate (beats/min) 96 -LM Pre SpO2 (%) 95 -LM O2 Delivery Pre Treatment room air -LM Post SpO2 (%) 96 -LM O2 Delivery Post Treatment room air -LM Pre Patient Position Sitting -LM Post Patient Position Sitting -LM [facility] Name 04/06/25 1146 Positioning [...] Nurse Physical Therapy Education Title: PT OT RESTAURANT CASHIER Therapies (Done) Topic: Physical Therapy (Done) Point: Mobility training (Done) Learning Progress Summary Patient Acceptance, E, VU,DU by at 04/06/2025 1147 Point: Precautions (Done) Learning Progress Summary Patient Acceptance, E, VU,DU by at 04/06/2025 1147 User Cabrera Initials Effective Dates Name Provider Type [facility] 01/24/25 - Susan Cavazos, PT [...] Description Service Date Service Provider Modifiers Qty [id number] PT EVAL LOW COMPLEXITY 3 04/06/2025 Susan [...] mg Daily 04/05/2025 -- Route: Oral heparin 92255 units/250 mL (100 units/mL) in 0.45 % [...] Dean MD April 21 vs April 22 [facility] [address], [address] [facility], [address] Please schedule at [phone] VNODA Garcia 04/11/25 08:32 EDT Cosigned by Sushil [...] Date/Time Wound Culture - Swab, Leg, Right [[id number]] (Abnormal) (Susceptibility) Collected: 04/07/252106 Lab Status: Final [...] mg Daily 04/05/2025 -- Route: Oral heparin 62592 units/250 mL (100 units/mL) in 0.45 % [...] Dean MD April 21 vs April 22 [facility] [address] [facility], [address] [facility], [address] Please schedule at [phone] VONDA Garcia 04/10/25 09:01 EDT Cosigned by Sushil Dean Jr., MD at 04/19/2025 10:33 AM EDT Associated attestation - Sushil Dean Jr., MD - 04/19/2025 10:33 AM EDT I have reviewed this documentation and agree. * Carlton Mead MD - 04/10/2025 7:38 AM EDT Images from the original note were not included. INFECTIOUS DISEASE Progress Note Won Dennis 1980 [id number] Date of Consult: 04/10/2025 Admission Date: 04/04/2025 [...] IRRIGATION; Surgeon: Sushil Dean Jr., MD; Location: [facility]; Service: Orthopedics; Laterality: Right; PLACEMENT OF WOUND VAC Right 04/07/2025 Procedure: WOUND VACUUM ASSISTED CLOSURE; Surgeon: Sushil Dean Jr., MD; Location: [facility] OR; Service: Orthopedics; Laterality: Right; WOUND CLOSURE [...] Jr., MD, 20 mg at 04/09/25906 heparin 89252 units/250 mL (100 units/mL) in 0.45 % [...] Units Date/Time FL C Arm During Surgery [[id number]] Resulted: 04/07/252137 Updated: 04/07/252137 Narrative: This procedure was auto-finalized with no dictation required. MRI Tibia Fibula Right With & Without Contrast [[id number]] Collected: 04/07/25937 Updated: 04/07/25 100 Narrative: MRI [...] Buenrostro 04/07/2025 9:58 AM EDT Workstation ID: [id number] Impression: Recurrent Right BKA stump abscess/cellulitis- this [...] disposition with the pharmacist at [facility] today. I will sign off Outpatient orders: 1. Outpatient intravenous antibiotic therapy: Daptomycin 800 mg IV daily to be supplied by [facility] 2. Home health to perform weekly PICC [...] 07:38 EDT * Larisa Hamilton [facility] - 04/10/2025 7:17 AM EDT [...] Date/Time Wound Culture - Swab, Leg, Right [[id number]] (Abnormal) Collected: 04/07/252106 Lab Status: Preliminary result [...] DO 04/09/25 * Larisa Hamilton [facility] - 04/09/2025 11:36 AM EDT [...] mg Daily 04/05/2025 -- Route: Oral heparin 45704 units/250 mL (100 units/mL) in 0.45 % [...] in 2 weeks for incision check, radiographs [facility] [address] [facility], [address] [facility], [address] Please schedule at [phone] VONDA Garcia 04/09/25 09:18 EDT Cosigned by Sushil Dean Jr., MD at 04/19/2025 10:33 AM EDT Associated attestation - Sushil Dean Jr., MD - 04/19/2025 10:33 AM EDT I have reviewed this documentation and agree. * Carlton Mead MD - 04/09/2025 8:25 AM EDT Images from the original note were not included. INFECTIOUS DISEASE Progress Note Won Dennis 1980 [id number] Date of Consult: 04/09/2025 Admission Date: 04/04/2025 [...] MD; Location: [facility]; Service: Orthopedics; Laterality: Right; PLACEMENT OF WOUND [...] MD, 20 mg at 04/08/25 0800 heparin 96927 units/250 mL (100 units/mL) in 0.45 % [...] Units Date/Time FL C Arm During Surgery [[id number]] Resulted: 04/07/252137 Updated: 04/07/252137 Narrative: This procedure was auto-finalized with no dictation required. MRI Tibia Fibula Right With & Without Contrast [[id number]] Collected: 04/07/25 0938 Updated: 04/07/25 1001 Narrative: [...] Chitra 04/07/2025 9:58 AM EDT Workstation ID: [id number] Impression: Recurrent Right BKA stump abscess/cellulitis- this [...] Buenrostro 04/07/2025 9:58 AM EDT Workstation ID: [id number] I have personally reviewed the therapy plans: [...] DO 04/08/25 * Hamilton, Larisa, [facility] - 04/08/2025 11:48 AM EDT [...] mg Daily 04/05/2025 -- Route: Oral heparin 10279 units/250 mL (100 units/mL) in 0.45 % [...] INFECTIOUS DISEASE Progress Note Won Dennis 1980 [id number] Date of Consult: 04/08/2025 Admission Date: 04/04/2025 [...] Oral, Q6H PRN, 500 mg at 04/06/25 1704 OR acetaminophen (TYLENOL) 160 MG/5ML oral solution [...] Jr., MD, 20 mg at 04/07/25950 heparin 72224 units/250 mL (100 units/mL) in 0.45 % [...] Units Date/Time FL C Arm During Surgery [[id number]] Resulted: 04/07/252137 Updated: 04/07/252137 Narrative: This procedure was auto-finalized with no dictation required. 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 (Treated by ID in [place] Dr. Harris). Dr. Torres treated him with [...] Buenrostro 04/07/2025 9:58 AM EDT Workstation ID: [id number] I have personally reviewed the therapy plans: [...] Preeti 04/07/25 * Larisa Hamilton, [facility] - 04/07/2025 11:56 AM EDT [...] INFECTIOUS DISEASE Progress Note Won Dennis 1980 [id number] Date of Consult: 04/07/2025 Admission Date: 04/04/2025 [...] MD, 20 mg at 04/06/25 0900 heparin 05489 units/250 mL (100 units/mL) in 0.45 % NaCl infusion, 18 Units/kg/hr, Intravenous, Titrated, Cherri Beatty, [facility], Last Rate: 24.1 mL/hr at [...] With & Without Contrast - In process [[id number]] Resulted: 04/07/25828 Updated: 04/07/25828 This result has not been signed. Information might be incomplete. 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 (Treated by ID in [place] Dr. Harris). Dr. Torres treated him with [...] mg Daily 04/05/2025 -- Route: Oral heparin 91922 units/250 mL (100 units/mL) in 0.45 % [...] 06:07 EDT * Cherri Beatty [facility] - 04/06/2025 1:47 PM EDT [...] 1236 0.24 16 -- +2 18 2000 UL Beatty RPH 04/06/2025 13:48 EDT * Jason [...] MD 04/04/2025 11:00 PM EDT Workstation ID: [id number] I have personally reviewed the therapy plans: [...] mg Daily 04/05/2025 -- Route: Oral heparin 00000 units/250 mL (100 units/mL) in 0.45 % [...] INFECTIOUS DISEASE follow up. Won Dennis 1980 [id number] Date of Consult: 04/06/2025 Admission Date: 04/04/2025 Requesting Provider: Evaluating Physician: Dr. Mable Mead MD. 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 (Treated by ID in [place] Dr. Harris). Dr. Torres treated him with [...] transitions of care for this complex patient. Carlotn Mead MD 04/06/2025 16:00 EDT * Cherri [...] MD 04/04/2025 11:00 PM EDT Workstation ID: [id number] I have personally reviewed the therapy plans: [...] display. Brief Hospital Course to date: Won Denins is a 44 y.o. male with a [...] MD 04/04/2025 11:00 PM EDT Workstation ID: [id number] Assessment & Plan Assessment & Plan Won [...] EDTAssociated Order(s): IP CONSULT TO ORTHOPEDIC SURGERY [facility], [facility] [address] [address] Orthopedic Consult Patient: Won Dennis Date of [...] was evaluated in the emergency department in [place], was discharged with instructions for follow-up. He [...] tablet by mouth Daily. 04/03/2025 Morning Lactobacillus-Inulin ([facility]) capsule Take 200 mg by mouth [...] MD 04/04/2025 11:00 PM EDT Workstation ID: [id number] Assessment: Right BKA infection 44-year-old male with [...] DISEASE CONSULT/INITIAL HOSPITAL VISIT Won Dennis 1980 [id number] Date of Consult: 04/05/2025 Admission Date: 04/04/2025 [...] Leonora Shepherd MD, 40 mg at 04/04/25 0755 sennosides-docusate (PERICOLACE) 8.6-50 MG per tablet 2 [...] MD, 20 mg at 04/05/25 09 heparin 08576 units/250 mL (100 units/mL) in 0.45 % [...] Leonora Shepherd MD, 10 mg at 04/04/25 8298 Pharmacy to Dose Heparin, , Not Applicable, [...] Tibia Fibula Right With & Without Contrast [[id number]] Collected: 04/04/252256 Updated: 04/04/252302 Narrative: MRI TIBIA [...] represent a small area of phlegmonous change (korewb30 image 10) measuring approximately 1.6 cm which [...] MD 04/04/2025 11:00 PM EDT Workstation ID: [id number] Impression: Right BKA stump cellulitis- s/p BKA with multiple surgical 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 (Treated by ID in [place] Dr. Harris). Dr. Torres treated him with [...] infection POSTOP DIAGNOSIS: Same. PROCEDURE: Right Right 37818: Secondary closure below-knee amputation SURGEON: Sushil Dean MD OPERATIVE TEAM: Facility Maintenance Worker: Susi Grullon RN Scrub Person: Mary Paredes Scrub Person Extra: Hortencia Toribio Other: Katt Gotti RN; Charis Neville RN ANESTHETIST: Anesthesiologist: Ulises Hoffman MD BOTTLE FILLER: Stan Casillas CRNA Student Nurse Financing Analyst: Karol Albert SRNA ANESTHESIA: Choice ESTIMATED BLOOD [...] CULTURE (Canceled) Sushil Dean Jr., MD 04/08/25 0185 Description: RIGHT LEG DEEP WOUND FOR CULTURE [...] Jr., MD - 04/07/2025 9:03 PM EDT [facility], [place] [address] OPERATIVE REPORT PATIENT NAME: Won Dennis DATE OF : 1980 PREOP DIAGNOSIS: Right Right below knee amputation stump infection POSTOP DIAGNOSIS: Same. PROCEDURE: Right Right 05463: Incision and drainage of surgical site infection 76411: Debridement of skin, subcutaneous tissue, muscle 05045: Wound vacuum-assisted closure SURGEON: Sushil Dean MD OPERATIVE TEAM: Facility Maintenance Worker: Anum Sanchez RN Scrub Person: Hortencia Toribio; Gerald Ivey HAND PLEATER: Anesthesiologist: Luci Alonso DO ANESTHESIA: General ESTIMATED [...] and US, here for MRI per pt Jemraine wanted to have scan and bloodworkHistory Obtained [...] this chart in the absence of a cavalry officer. No orders to display RADIOLOGY: [x] Radiologist's [...] discharging home with outpatient infusion at [facility]. He has an appointment with [facility] at 8:00 am tomorrow. They will do PICC line dressing changes. DEBRA has spoke with Dena at [facility] today multiple times to get [...] with KELLEE and given themhis Medicare number [id number], she sent it to Admission. DEBRA spoke [...] changes and lab work. DEBRA called Dena [facility] Outpatient infusion center they can accept patient and start him. He is known for their facility. The Facility will need to run it through his insurance first. CM faxed the orders over to [facility] at [phone]. CM will follow up with them tomorrow at [facility] to make sure they received the [...] 04/09/2025 2:51 PM EDT Continued Stay Note [facility] Patient Name: Won Dennis Today's Date: 04/09/2025 Admit Date: 04/04/2025 Plan: Home Discharge Plan Row Name 04/09/25 1311 Plan Plan Home Patient/Family in Agreement with Plan yes Plan Comments CM spoke with patient at bedside today. Wheelchair from [employer] is at bedside. Patient getting PICC line [...] note were not included. Discharge Planning Assessment [facility] Patient Name: Won Dennis Today's Date: 04/07/2025 [...] with family Patient/Family Anticipated Services at Transition disability case managerunderwriting support manager Anticipated family or friend will provide Discharge Needs Assessment Equipment Currently Used at Home glucometer;shower chair;pulse ox;bp cuff;prosthesis;crutches Equipment Needed After Discharge none Discharge Plan Row Name 04/07/25 1144 Plan Plan Home Patient/Family in Agreement with Plan yes Plan Comments CM spoke with patient at bedside today. Patient lives with and his 5 kids in [facility]. 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 He has walker, cane, shower chair, and crutches. He requested a wheelchair for home. CM [facility]. He is not current with home health services. PCP is Dr. Jordan. Insurance is [facility] Medicaid [place]. Patient discharge plan is [...] CBC Auto Differential (04/11/2025 3:40 AM EDT) [facility] WBC 7.87 3.40 - 10.80 10*3/mm3 04/11/2025 4:02 AM EDT [facility] RBC 4.70 4.14 - 5.80 10*6/mm3 04/11/2025 4:02 AM [facility] Hemoglobin 12.8(L) 13.0 - 17.7 g/dL 04/[facility]25 [facility] Hematocrit 40.5 37.5 - 51.0 % 04/11/2025 4:02 AM [facility] MCV 86.2 79.0 - 97.0 fL 04/11/2025 4:02 [facility] MCH 27.2 26.6 - 33.0 pg 04/11/2025 4:02 AM [facility] MCHC 31.6 31.5 - 35.7 g/dL 04/11/2025 4:02 AM [facility] RDW 12.9 12.3 - 15.4 % 04/11/2025 4:02 AM [facility] RDW-SD 40.5 37.0 - 54.0 fl 04/11/2025 4:02 AM [facility] MPV 9.2 6.0 - 12.0 fL 04/11/2025 4:02 AM [facility] Platelets 267 140 - 450 10*3/mm3 04/11/2025 4:02 AM [facility] Neutrophil % 59.5 42.7 - 76.0 % 04/11/2025 4:02 AM [facility] Lymphocyte % 26.3 19.6 - 45.3 % 04/11/2025 4:02 AM [facility] Monocyte % 9.3 5.0 - 12.0 % 04/11/2025 4:02 [facility] Eosinophil % 4.1 0.3 - 6.2 % 04/11/2025 4:02 [facility] Basophil % 0.4 0.0 - 1.5 % 04/11/2025 4:02 [facility] Immature Grans % 0.4 0.0 - 0.5 % 04/11/2025 4:02 AM [facility] Neutrophils, Absolute 4.69 1.70 [...] Fi nal Result [facility]
[address] [place] [address], * (ABNORMAL) Comprehensive Metabolic Panel (04/11/2025 3:40 AM EDT) Glucose 108(H) 65 - 99 mg/dL 04/11/2025 4:19 AM EDT [facility] BUN 12.5 6.0 - 20.0 mg/dL 04/11/2025 4:19 AM EDT [facility] Creatinine 0.68(L) 0.76 - 1.27 mg/dL 04/11/2025 4:19 AM [facility] Sodium 140 136 - 145 mmol/L 04/11/2025 4:19 AM [facility] Potassium 3.8 3.5 - 5.2 mmol/L 04/11/2025 4:19 AM [facility] Chloride 105 98 - 107 mmol/L 04/11/2025 4:19 AM [facility] CO2 28.2 22.0 - 29.0 mmol/L 04/11/2025 4:19 AM [facility] Calcium 8.2(L) 8.6 - 10.5 mg/dL 04/11/2025 4:19 AM [facility] Total Protein 6.1 6.0 - 8.5 g/dL 04/11/2025 4:19 AM [facility] Albumin 3.1(L) 3.5 - 5.2 g/dL 04/11/2025 4:19 AM [facility] ALT (SGPT) 52(H) 1 - 41 U/L 04/11/2025 4:19 AM [facility] AST (SGOT) 40 1 - 40 U/L 04/11/2025 4:19 AM [facility] Alkaline Phosphatase 99 39 - 117 U/L 04/11/2025 4:19 AM [facility] Total Bilirubin 0.2 0.0 - 1.2 mg/dL 04/11/2025 4:19 AM [facility] Globulin 3.0 gm/dL 04/11/2025 4:19 AM [facility] Comment:Calculated Result A/G Ratio 1.0 g/dL 04/11/2025 4:19 AM [facility] BUN/Creatinine Ratio 18.4 7.0 - 25.0 04/11/2025 4:19 AM [facility] Anion Gap 6.8 5.0 - 15.0 mmol/L 04/11/2025 4:19 AM [facility] eGFR 117.5 >60.0 mL/min/1.7 3 04/11/2025 4:19 AM EDT [facility] Blood Venipuncture / Unknown 04/11/2025 3:40 AM EDT 04/11/2025 3:56 AM EDT [facility] - 04/11/2025 4:19 AM [...] include race as a factor Rosario Hill [employer]KE [employer] OPERATOR LAB BLOOD ORDERABLES Final Result [facility]
[address] [place] [address], * (ABNORMAL) CBC Auto Differential (04/10/2025 3:46 [...] 12.3 - 15.4 % 04/10/2025 3:56 AM [facility] RDW-SD 40.5 37.0 - 54.0 fl 04/10/2025 3:56 AM [facility] MPV 9.5 6.0 - 12.0 fL 04/10/2025 3:56 AM EDT [facility] Platelets 227 140 - 450 10*3/mm3 04/10/2025 3:56 [facility] Neutrophil % 59.1 42.7 - 76.0 % 04/10/2025 3:56 AM [facility] Lymphocyte % 29.0 19.6 - 45.3 % 04/10/2025 3:56 AM [facility] Monocyte % 8.1 5.0 - 12.0 % 04/10/2025 3:56 [facility] Eosinophil % 3.2 0.3 - 6.2 % 04/10/2025 3:56 [facility] Basophil % 0.4 0.0 - 1.5 % 04/10/2025 3:56 [facility] Immature Grans % 0.2 0.0 - 0.5 % 04/10/2025 3:56 AM [facility] Neutrophils, Absolute 5.67 1.70 - 7.00 10*3/mm3 04/10/2025 3:56 [facility] Lymphocytes, Absolute 2.78 0.70 - 3.10 10*3/mm3 04/10/2025 3:56 AM [facility] Monocytes, Absolute 0.78 0.10 - 0.90 10*3/mm3 04/10/2025 3:56 AM [facility] Eosinophils, Absolute 0.31 0.00 - 0.40 10*3/mm3 04/10/2025 3:56 AM [facility] Basophils, Absolute 0.04 0.00 - [...] ORDERABLES Final Resul t [facility]
[address] [place] [address], * (ABNORMAL) Basic Metabolic Panel (04/10/2025 3:46 [...] 8.6 - 10.5 mg/dL 04/10/2025 4:20 AM [facility] BUN/Creatinine Ratio 20.6 7.0 [...] Resul t [facility]
[address] [place] [address], * Heparin Anti-Xa (04/10/2025 3:46 AM EDT) Heparin Anti-Xa (UFH) 0.35 0.30 - 0.70 IU/ml 04/10/2025 4:23 AM EDT [facility] Blood Venipuncture / Unknown 04/10/2025 3:46 AM EDT 04/10/2025 3:53 AM EDT Larisa Hamilton [facility] LAB BLOOD ORDERABLES Final R esult [facility]
[address] [place] [address], * Heparin Anti-Xa (04/09/2025 10:05 AM EDT) Heparin Anti-Xa (UFH) 0.36 0.30 - 0.70 IU/ml 04/09/2025 11:12 AM EDT [facility] Blood Venipuncture / Unknown 04/09/2025 10:05 AM EDT 04/09/2025 10:47 AM EDT Larisa Hamilton [facility] LAB BLOOD ORDERABLES Final R esult [facility]
[address] [place] [address], * (ABNORMAL) CBC Auto Differential (04/09/2025 4:18 [...] 12.3 - 15.4 % 04/09/2025 4:50 AM [facility] RDW-SD 39.9 37.0 - 54.0 fl 04/09/2025 4:50 AM [facility] MPV 10.0 6.0 - 12.0 fL 04/09/2025 4:50 AM [facility] Platelets 211 140 - 450 10*3/mm3 04/09/2025 4:50 AM [facility] Neutrophil % 74.8 42.7 - 76.0 % 04/09/2025 4:50 AM [facility] Lymphocyte % 15.4(L) 19.6 - 45.3 % 04/09/2025 4:50 AM [facility] Monocyte % 8.5 5.0 - 12.0 % 04/09/2025 4:50 AM [facility] Eosinophil % 0.6 0.3 - 6.2 % 04/09/2025 4:50 AM [facility] Basophil % 0.4 0.0 - 1.5 % 04/09/2025 4:50 AM [facility] Immature Grans % 0.3 0.0 - 0.5 % 04/09/2025 4:50 AM [facility] Neutrophils, Absolute 8.23(H) 1.70 - 7.00 10*3/mm3 04/09/2025 4:50 AM [facility] Lymphocytes, Absolute 1.69 0.70 - 3.10 10*3/mm3 04/09/2025 4:50 AM [facility] Monocytes, Absolute 0.94(H) 0.10 - 0.90 10*3/mm3 04/09/2025 4:50 AM [facility] Eosinophils, Absolute 0.07 0.00 - 0.40 10*3/mm3 04/09/2025 4:50 AM [facility] Basophils, Absolute 0.04 0.00 - 0.20 10*3/mm3 04/09/2025 4:50 AM [facility] Immature Grans, Absolute 0.03 0.00 - 0.05 10*3/mm3 04/09/2025 4:50 AM EDT [facility] nRBC 0.0 0.0 - 0.2 /100 WBC 04/09/2025 4:50 AM EDT [facility] Blood Venipuncture / Unknown 04/09/2025 4:18 AM EDT 04/09/2025 4:31 AM EDT Sushil Dean Jr., MD LAB BLOOD ORDERABLES Fi nal Result [facility]
[address] [place] [address], * Heparin Anti-Xa (04/09/2025 4:18 AM EDT) Heparin Anti-Xa (UFH) 0.41 0.30 - 0.70 IU/ml 04/09/2025 4:53 AM EDT [facility] Blood Venipuncture / Unknown 04/09/2025 4:18 AM EDT 04/09/2025 4:31 AM EDT Una LundbergD LAB BLOOD ORDERABLES Final R esult [facility]
[address] [place] [address], * (ABNORMAL) Basic Metabolic Panel (04/09/2025 4:18 [...] 4:18 AM EDT 04/09/2025 4:29 AM EDT [facility] - 04/09/2025 5:33 AM [...] Jr., MD LAB BLOOD ORDERABLES nal Result [facility]
[address] [place] [address], * Wound Culture - Swab, Leg, Right (04/08/2025 3:40 PM EDT) Wound Culture No growth at 3 days ALIZA 04/11/2025 10:40 AM EDT [facility] Gram Stain Few (2+) WBCs [...] [facility]/ZIP Co de Phone Number [facility]
[address] [place] [address], [facility]
[address] [place] [address], * Anaerobic Culture - Swab, Leg, Right (04/08/2025 3:40 PM EDT) Pathologist [facility] Anaerobic Culture No anaerobes isolated at 5 days ALIZA 04/13/2025 7:24 AM EDT [facility] Swab Structure of right lower limb / Unknown 04/08/2025 3:40 PM EDT 04/08/2025 8:05 PM EDT Sushil Dean Jr., MD MICROBIOLOGY - GENERAL ORDERABLES Final Result [facility]
[address] [place] [address], * Scan Slide (04/08/2025 8:41 AM EDT) [...] Final R esult [facility]
[address] [place] [address], * (ABNORMAL) CBC Auto Differential (04/08/2025 8:41 [...] 37.0 - 54.0 fl 04/08/2025 11:02 AM [facility] MPV 11.0 6.0 - 12.0 fL 04/08/2025 11:02 AM [facility] Platelets 118(L) 140 - 450 10*3/mm3 04/08/2025 11:02 AM [facility] Neutrophil % 85.1(H) 42.7 - 76.0 % 04/08/2025 11:02 AM [facility] Lymphocyte % 9.3(L) 19.6 - 45.3 % 04/08/2025 11:02 AM [facility] Monocyte % 4.6(L) 5.0 - 12.0 % 04/08/2025 11:02 AM [facility] Eosinophil % 0.3 0.3 - 6.2 % 04/08/2025 11:02 AM [facility] Basophil % 0.2 0.0 - 1.5 % 04/08/2025 11:02 AM [facility] Immature Grans % 0.5 0.0 - 0.5 % 04/08/2025 11:02 AM [facility] Neutrophils, Absolute 8.57(H) 1.70 - 7.00 10*3/mm3 04/08/2025 11:02 AM [facility] Lymphocytes, Absolute 0.94 0.70 - 3.10 10*3/mm3 04/08/2025 11:02 AM [facility] Monocytes, Absolute 0.46 0.10 - 0.90 10*3/mm3 04/08/2025 11:02 AM [facility] Eosinophils, Absolute 0.03 0.00 - 0.40 10*3/mm3 04/08/2025 11:02 AM [facility] Basophils, Absolute 0.02 0.00 - 0.20 10*3/mm3 04/08/2025 11:02 AM [facility] Immature Grans, Absolute 0.05 0.00 - 0.05 10*3/mm3 04/08/2025 11:02 AM EDT [facility] nRBC 0.0 0.0 - 0.2 /100 WBC 04/08/2025 11:02 AM EDT [facility] Blood Venipuncture / Unknown 04/08/2025 8:41 AM EDT 04/08/2025 9:10 AM EDT Una Perla PharmD LAB BLOOD ORDERABLES Final R esult [facility]
[address] [place] [address], * (ABNORMAL) Basic Metabolic Panel (04/08/2025 8:41 [...] ORDERABLES Fi nal Result Performing Organization Address City/[facility]/ZIP Co de Phone Number [facility]
[address] [place] [address], * Heparin Anti-Xa (04/08/2025 8:41 AM EDT) Heparin Anti-Xa (UFH) 0.33 0.30 - 0.70 IU/ml 04/08/2025 9:40 AM EDT [facility] Blood Venipuncture / Unknown 04/08/2025 8:41 AM EDT 04/08/2025 9:10 AM EDT us Sushil Dean Jr., MD LAB BLOOD ORDERABLES Fi nal Result Performing Organization Address City/[facility]/ZIP Co de Phone Number [facility]
[address] [place] [address], [place] [phone] * [place] C Arm During Surgery (04/07/2025 9:32 PM EDT) Narrative SYSTEMGENERATED, DOCUMENTATION - 04/07/2025 9:38 PM EDT This procedure was auto-finalized with no dictation required. us Sushil Dean Jr., MD IMG FLUOROSCOPY ORDERAB LES Final Result * Wound Culture - Swab, Leg, Right (04/07/2025 9:14 PM EDT) Wound Culture No growth at 3 days ALIZA 04/11/2025 10:40 AM EDT [facility] Gram Stain Occasional WBCs seen [...] [facility]/ZIP Co de Phone Number [facility]
[address] [place] [address], [facility]
[address] [place] [address], * Anaerobic Culture - Swab, Leg, Right (04/07/2025 9:14 PM EDT) Anaerobic Culture No anaerobes isolated at 5 days ALIZA 04/13/2025 7:21 AM EDT [facility] Swab Structure of right lower limb / Unknown Collection / Unknown 04/07/2025 9:14 PM EDT 04/08/2025 4:36 AM EDT us Sushil Dean Jr., MD MICROBIOLOGY - GENERAL ORDERABLES Final Result [facility]
[address] [place] [address], * Anaerobic Culture - Tissue, Leg (04/07/2025 9:13 PM EDT) Anaerobic Culture No anaerobes isolated at 5 days ALIZA 04/13/2025 7:21 AM EDT [facility] Tissue Lower limb structure / Unknown Collection / Unknown 04/07/2025 9:13 PM EDT 04/08/2025 4:54 AM EDT Jason Álvarez DO MICROBIOLOGY - GENERAL ORDERABLE S Final Result [facility]
[address] [place] [address], * Tissue / Bone Culture - Tissue, Leg, Right (04/07/2025 9:13 PM EDT) [facility] Tissue Culture No growth at 3 days ALIZA 04/11/2025 10:36 AM EDT [facility] Gram Stain Rare (1+) WBCs seen 04/11/2025 10:36 AM EDT [facility] Gram Stain No organisms seen 04/11/2025 10:36 AM EDT [facility] Tissue Structure of right lower limb / Unknown 04/07/2025 9:13 PM EDT 04/08/2025 4:54 AM EDT Sushil Dean Jr., MD MICROBIOLOGY - GENERAL ORDERABLES Final Result [facility]
[address] [place] [address], [facility]
[address] [place] [address], * (ABNORMAL) Wound Culture - Swab, Leg, Right (04/07/2025 9:07 PM EDT) Wound Culture Light growth (2+) Staphylococcus aureus, MRSA(A) ALIZA 04/10/2025 10:38 AM EDT [facility] Comment: Methicillin resistant Staphylococcus aureus, [...] MD MICROBIOLOGY - GENERAL ORDERABLES Final Result [facility]
[address] [place] [address], [place] [phone] [facility]
[address] [place] [address], [place] [phone] * Anaerobic Culture - Swab, Leg, Right (04/07/2025 9:07 PM EDT) Anaerobic Culture No anaerobes isolated at 5 days ALIZA 04/13/2025 7:21 AM EDT [facility] Swab Structure of right lower limb / Unknown Collection / Unknown 04/07/2025 9:07 PM EDT 04/08/2025 4:36 AM EDT us Sushil Dean Jr., MD MICROBIOLOGY - GENERAL ORDERABLES Final Result [facility]
[address] [place] [address], * Heparin Anti-Xa (04/07/2025 9:10 AM EDT) [facility] Heparin Anti-Xa (UFH) 0.30 0.30 - 0.70 IU/ml 04/07/2025 10:12 AM EDT [facility] Blood Venipuncture / Unknown 04/07/2025 9:10 AM EDT 04/07/2025 9:38 AM EDT Una LundbergD LAB BLOOD ORDERABLES Final R esult [facility]
[address] [place] [address], [place] [phone] * (ABNORMAL) CBC Auto Differential (04/07/2025 9:10 AM EDT) [facility] WBC 8.63 3.40 - 10.80 10*3/mm3 [...] 12.3 - 15.4 % 04/07/2025 9:50 AM [facility] RDW-SD 39.9 37.0 - 54.0 fl 04/07/2025 9:50 AM [facility] MPV 10.8 6.0 - 12.0 fL 04/07/2025 9:50 AM [facility] Platelets 149 140 - 450 10*3/mm3 04/07/2025 9:50 AM [facility] Neutrophil % 66.7 42.7 - 76.0 % 04/07/2025 9:50 AM [facility] Lymphocyte % 20.5 19.6 - 45.3 % 04/07/2025 9:50 AM [facility] Monocyte % 9.8 5.0 - 12.0 % 04/07/2025 9:50 AM [facility] Eosinophil % 2.1 0.3 - 6.2 % 04/07/2025 9:50 AM [facility] Basophil % 0.3 0.0 - 1.5 % 04/07/2025 9:50 AM [facility] Immature Grans % 0.6(H) 0.0 - 0.5 % 04/07/2025 9:50 AM [facility] Neutrophils, Absolute 5.75 1.70 - 7.00 10*3/mm3 04/07/2025 9:50 AM [facility] Lymphocytes, Absolute 1.77 0.70 - 3.10 10*3/mm3 04/07/2025 9:50 AM [facility] Monocytes, Absolute 0.85 0.10 - 0.90 10*3/mm3 04/07/2025 9:50 AM [facility] Eosinophils, Absolute 0.18 0.00 - 0.40 10*3/mm3 04/07/2025 9:50 AM [facility] Basophils, Absolute 0.03 0.00 - 0.20 10*3/mm3 04/07/2025 9:50 AM [facility] Immature Grans, Absolute 0.05 0.00 - 0.05 10*3/mm3 04/07/2025 9:50 AM EDT [facility] nRBC 0.0 0.0 - 0.2 /100 WBC 04/07/2025 9:50 AM EDT [facility] Blood Venipuncture / Unknown 04/07/2025 9:10 AM EDT 04/07/2025 9:38 AM EDT Jasonalfonso Álvarez DO LAB BLOOD ORDERABLES Final Resul t [facility]
[address] [place] [address], * (ABNORMAL) Basic Metabolic Panel (04/07/2025 9:10 [...] POWELL LAB BLOOD ORDERABLES Final Resul t [facility]
[address] [place] [address], * MRI Tibia Fibula Right With & [...] [place] 04/07/2025 9:58 AM EDT Workstation ID: [id number] Narrative 04/07/2025 9:58 AM EDT MRI TIBIA [...] [place] 04/07/2025 9:58 AM EDT Workstation ID: [id number] us Sushil Dean Jr., MD IM MRI ORDERABLES Mary Beth l Result * Heparin Anti-Xa (04/07/2025 1:42 AM EDT) [facility] Heparin Anti-Xa (UFH) 0.38 0.30 - 0.70 IU/ml 04/07/2025 2:14 AM EDT [facility] Blood Venipuncture / Unknown 04/07/2025 1:42 AM EDT 04/07/2025 1:54 AM EDT Chelsie Turpin [facility] LAB BLOOD ORDERABLES Final R esult [facility]
[address] [place] [address], * Heparin Anti-Xa (04/06/2025 7:16 PM EDT) [facility] Heparin Anti-Xa (UFH) 0.33 0.30 - 0.70 IU/ml 04/06/2025 7:50 PM EDT [facility] Blood Venipuncture / Unknown 04/06/2025 7:16 PM EDT 04/06/2025 7:35 PM EDT Cherri Rogerio RPH LAB BLOOD ORDERABLES Final Res ult Performing Organization Address City/[facility]/ZIP Co de Phone Number [facility]
[address] [place] [address], * Potassium (04/06/2025 7:16 PM EDT) Potassium 4.0 3.5 - 5.2 mmol/L 04/06/2025 7:53 PM EDT [facility] Blood Venipuncture / Unknown 04/06/2025 7:16 PM EDT 04/06/2025 7:35 PM EDT Jason Álvarez DO LAB BLOOD ORDERABLES Final Resul t Performing Organization Address [facility] de Phone Number [facility]
[address] [place] [address], * (ABNORMAL) Heparin Anti-Xa (04/06/2025 12:36 PM EDT) Heparin Anti-Xa (UFH) 0.24(L) 0.30 - 0.70 IU/ml 04/06/2025 1:23 PM EDT [facility] Blood Venipuncture / Unknown 04/06/2025 12:36 PM EDT 04/06/2025 1:07 PM EDT Una LundbergD LAB BLOOD ORDERABLES Final R esult Performing Organization Address City/[facility] Co de Phone Number [facility]
[address] [place] [address], * (ABNORMAL) Heparin Anti-Xa (04/06/2025 3:42 AM EDT) Pathologist [facility] Heparin Anti-Xa (UFH) 0.25(L) 0.30 - 0.70 IU/ml 04/06/2025 5:30 AM EDT [facility] Blood Venipuncture / Unknown 04/06/2025 3:42 AM EDT 04/06/2025 4:59 AM EDT Chelsie Turpin [facility] LAB BLOOD ORDERABLES Final R esult [facility]
[address] [place] [address], * (ABNORMAL) Basic Metabolic Panel (04/06/2025 3:42 [...] 3:42 AM EDT 04/06/2025 5:20 AM EDT [facility] - 04/06/2025 5:59 AM [...] Final Resul t [facility]
[address] [place] [address], * (ABNORMAL) CBC Auto Differential (04/06/2025 3:41 [...] 79.0 - 97.0 fL 04/06/2025 5:04 AM [facility] MCH 27.4 26.6 - 33.0 pg 04/06/2025 5:04 AM [facility] MCHC 31.8 31.5 - 35.7 g/dL 04/06/2025 5:04 AM [facility] RDW 12.8 12.3 - 15.4 % 04/06/2025 5:04 AM [facility] RDW-SD 40.0 37.0 - 54.0 fl 04/06/2025 5:04 AM [facility] MPV 11.7 6.0 - 12.0 fL 04/06/2025 5:04 AM [facility] Platelets 115(L) 140 - 450 10*3/mm3 04/06/2025 5:04 AM [facility] Neutrophil % 65.3 42.7 - 76.0 % 04/06/2025 5:04 AM [facility] Lymphocyte % 20.5 19.6 - 45.3 % 04/06/2025 5:04 AM [facility] Monocyte % 11.8 5.0 - 12.0 % 04/06/2025 5:04 AM [facility] Eosinophil % 1.8 0.3 - 6.2 % 04/06/2025 5:04 AM [facility] Basophil % 0.3 0.0 - 1.5 % 04/06/2025 5:04 AM [facility] Immature Grans % 0.3 0.0 - 0.5 % 04/06/2025 5:04 AM [facility] Neutrophils, Absolute 7.09(H) 1.70 - 7.00 10*3/mm3 04/06/2025 5:04 AM [facility] Lymphocytes, Absolute 2.23 0.70 - 3.10 10*3/mm3 04/06/2025 5:04 AM [facility] Monocytes, Absolute [...] Address City/[facility] Co de Phone Number [facility]
[address] [place] [address], [place] [phone] * Heparin Anti-Xa (04/05/2025 8:43 PM EDT) Pathologist [facility] Heparin Anti-Xa (UFH) 0.38 0.30 - 0.70 IU/ml 04/05/2025 9:09 PM EDT [facility] Blood Venipuncture / Unknown 04/05/2025 8:43 PM EDT 04/05/2025 8:55 PM EDT us Cherri Beatty [facility] LAB BLOOD ORDERABLES Final Res ult Performing Organization Address City/[facility]/ZIP Co de Phone Number [facility]
[address] [place] [address], [place] [phone] * CK (04/05/2025 12:15 PM EDT) Creatine Kinase 140 20 - 200 U/L 04/05/2025 1:31 PM EDT [facility] Blood Venipuncture / Unknown 04/05/2025 12:15 PM EDT 04/05/2025 1:03 PM EDT Carlton Mead MD LAB BLOOD ORDERABLES Final R esult Performing Organization Address City/[facility]/ZIP Co de Phone Number [facility]
[address] [place] [address], * (ABNORMAL) Heparin Anti-Xa (04/05/2025 12:15 PM EDT) Heparin Anti-Xa (UFH) 0.17(L) 0.30 - 0.70 IU/ml 04/05/2025 1:21 PM EDT [facility] Blood Venipuncture / Unknown 04/05/2025 12:15 PM EDT 04/05/2025 1:04 PM EDT Una Perla PharmD LAB BLOOD ORDERABLES Final R esult Performing Organization Address City/[facility] Co de Phone Number [facility]
[address] [place] [address], * (ABNORMAL) aPTT (04/05/2025 3:54 AM EDT) [...] 0.5 U/ml are 60 to 70 seconds. [employer] LAB BLOOD ORDERABLES Final R esult [facility]
[address] [place] [address], * Heparin Anti-Xa (04/05/2025 3:54 AM EDT) Pathologist [facility] Heparin Anti-Xa (UFH) 0.30 0.30 - 0.70 IU/ml 04/05/2025 4:32 AM EDT [facility] Blood Venipuncture / Unknown 04/05/2025 3:54 AM EDT 04/05/2025 4:15 AM EDT [employer] LAB BLOOD ORDERABLES Final R esult Performing Organization Address City/[facility]/ZIP Co de Phone Number [facility]
[address] [place] [address], * (ABNORMAL) CBC Auto Differential (04/05/2025 3:54 AM EDT) [facility] WBC 11.18(H) 3.40 - 10.80 10*3/mm3 [...] 31.5 - 35.7 g/dL 04/05/2025 4:20 AM [facility] RDW 12.9 12.3 - 15.4 % 04/05/2025 4:20 AM [facility] RDW-SD 39.7 37.0 - 54.0 fl 04/05/2025 4:20 AM [facility] MPV 10.2 6.0 - 12.0 fL 04/05/2025 4:20 AM [facility] Platelets 160 140 - 450 10*3/mm3 04/05/2025 4:20 AM [facility] Neutrophil % 73.5 42.7 - 76.0 % 04/05/2025 4:20 AM [facility] Lymphocyte % 14.0(L) 19.6 - 45.3 % 04/05/2025 4:20 AM [facility] Monocyte % 11.0 5.0 - 12.0 % 04/05/2025 4:20 AM [facility] Eosinophil % 0.8 0.3 - 6.2 % 04/05/2025 4:20 AM [facility] Basophil % 0.3 0.0 - 1.5 % 04/05/2025 4:20 AM [facility] Immature Grans % 0.4 0.0 - 0.5 % 04/05/2025 4:20 AM [facility] Neutrophils, Absolute 8.23(H) 1.70 - 7.00 10*3/mm3 04/05/2025 4:20 AM [facility] Lymphocytes, Absolute 1.56 0.70 - 3.10 10*3/mm3 04/05/2025 4:20 AM [facility] Monocytes, Absolute 1.23(H) 0.10 - 0.90 10*3/mm3 04/05/2025 4:20 AM [facility] Eosinophils, Absolute 0.09 0.00 - 0.40 10*3/mm3 04/05/2025 4:20 AM [facility] Basophils, Absolute [...] Final R esult [facility]
[address] [place] [address], * (ABNORMAL) Basic Metabolic Panel (04/05/2025 3:54 [...] 3:54 AM EDT 04/05/2025 4:15 AM EDT [facility] - 04/05/2025 4:40 AM [...] Re sult [facility]
[address] [place] [address], * (ABNORMAL) aPTT (04/05/2025 12:18 AM EDT) PTT 33.6(L) 60.0 - 90.0 seconds 04/05/2025 12:53 AM EDT [facility] Blood Venipuncture / Unknown 04/05/2025 12:18 AM EDT 04/05/2025 12:37 AM EDT [facility] - 04/05/2025 12:53 AM EDT PTT = The equivalent PTT values for the therapeutic range of heparin levels at 0.3 to 0.5 U/ml are 60 to 70 seconds. [employer] [facility] LAB BLOOD ORDERABLES Final R esult Performing Organization Address City/[facility]/ZIP Co de Phone Number [facility]
[address] [place] [address], * (ABNORMAL) Protime-INR (04/05/2025 12:18 AM EDT) Protime 15.9(H) 12.2 - 15.3 Seconds 04/05/2025 12:53 AM EDT [facility] INR 1.19(H) 0.89 - 1.12 04/05/2025 12:53 AM EDT [facility] Blood Venipuncture / Unknown 04/05/2025 12:18 AM EDT 04/05/2025 12:37 AM EDT [employer] [facility] LAB BLOOD ORDERABLES Final R esult Performing Organization Address [facility] Co de Phone Number [facility]
[address] [place] [address], * Heparin Anti-Xa (04/05/2025 12:18 AM EDT) Heparin Anti-Xa (UFH) 0.39 0.30 - 0.70 IU/ml 04/05/2025 12:54 AM EDT [facility] Blood Venipuncture / Unknown 04/05/2025 12:18 AM EDT 04/05/2025 12:37 AM EDT [facility] LAB BLOOD ORDERABLES Final R esult Performing Organization Address City/[facility] Co de Phone Number [facility]
[address] [place] [address], * MRI Tibia Fibula Right With & Without Contrast (04/04/2025 5:54 PM EDT) Anatomical Region Laterality Modality Lower Extremities, [facility] 04/04/2025 10:5 7 [...] MD 04/04/2025 11:00 PM EDT Workstation ID: [id number] Narrative 04/04/2025 11:00 PM EDT MRI TIBIA [...] MD 04/04/2025 11:00 PM EDT Workstation ID: [id number] Leonora Shepherd MD IMG MRI ORDERABLES Final Resu lt * POC Creatinine (04/04/2025 2:49 PM EDT) Creatinine 1.10 0.60 - 1.30 mg/dL 04/07/2025 7:14 PM EDT [facility] Comment:Serial Number: [id number] 7Operator: [id number] Venous Blood 04/04/2025 2:49 PM EDT 04/07/2025 7:14 PM EDT Jason Álvarez DO POINT OF CARE TEST ORDERABLES Fi nal Result [facility]
[address] [place] [address], * (ABNORMAL) CBC Auto Differential (04/04/2025 2:47 PM EDT) [facility] WBC 12.72(H) 3.40 - 10.80 10*3/mm3 [...] Fin al Result [facility]
[address] [place] [address], * (ABNORMAL) C-reactive Protein (04/04/2025 2:47 PM EDT) [facility] Signature C-Reactive Protein 8.57(H) 0.00 - 0.50 mg/dL 04/04/2025 3:26 PM EDT [facility] Blood Venipuncture / Unknown 04/04/2025 2:47 PM EDT 04/04/2025 2:52 PM EDT [facility] BLOOD ORDERABLES Fin al Result Performing Organization Address City/[facility]/ZIP Co de Phone Number [facility]
[address] [place] [address], * (ABNORMAL) Sedimentation Rate (04/04/2025 2:47 PM EDT) [facility] Sed Rate 51(H) 0 - 15 mm/hr 04/04/2025 3:06 PM EDT [facility] Blood Venipuncture / Unknown 04/04/2025 2:47 PM EDT 04/04/2025 2:52 PM EDT [facility] BLOOD ORDERABLES Fin al Result Performing Organization Address City/[facility] Co de Phone Number [facility]
[address] [place] [address], * Comprehensive Metabolic Panel (04/04/2025 2:47 PM EDT) [facility] Glucose 90 65 - 99 mg/dL [...] 1 - 41 U/L 04/04/2025 3:26 PM [facility] AST (SGOT) 25 1 - 40 U/L 04/04/2025 3:26 PM [facility] Alkaline Phosphatase 106 39 - 117 U/L 04/04/2025 3:26 PM T [facility] Total Bilirubin 1.0 0.0 - 1.2 mg/dL 04/04/2025 3:26 PM T [facility] Globulin 3.2 gm/dL 04/04/2025 3:26 PM [facility] Comment:Calculated Result A/G Ratio 1.3 g/dL 04/04/2025 3:26 PM [facility] BUN/Creatinine Ratio 19.5 7.0 - 25.0 04/04/2025 3:26 PM [facility] Anion Gap 10.7 5.0 - 15.0 mmol/L 04/04/2025 3:26 PM [facility] eGFR 102.5 >60.0 mL/min/1.7 3 04/04/2025 3:26 PM [facility] Blood Venipuncture / Unknown 04/04/2025 2:47 PM EDT 04/04/2025 2:52 PM EDT Narrative [facility] - 04/04/2025 3:26 PM [...] Fin al Result [facility]
[address] [place] [address], documented in this encounter Visit Diagnoses Diagnosis [...] Salazar, KELL)1943 (Given - Provider: Anahy Marcelino, [employer]UC[employer] MECH[employer] SPECIALIST)2129 (Canceled Entry - Provider: Anahy Marcelino [employer]UC[employer] MECH[employer] SPECIALIST - Comment: previously given) 0837 (Given - [...] Continuous Medication Order 04/09/2025 04/10/2025 04/11/2025 heparin 76937 units/250 mL (100 units/mL) in 0.45 % [...] Alberto Dillon, RN)2245 (Given - Provider: Alberto Dlilon, RN) 0109 (Given - Provider: Alberto Dillon, [...] documented as of this encounter Care Teams Sound Tester Relationship Specialty Start Date End Date Provider, [place] [address] PCP - General 05/09/23 documented as of this encounter
--- OUTSIDE RECORDS SUMMARY | 2025-04-07 20:36 | XMS_ITS | Encounter Summary ---
Author Organization [facility] Address [address] [place] [address] Care Team Providers Care Ornamental Iron Worker Helper Name Role Phone Provider, No Known Primary Care Provider Unavail able Reason for Visit * Auth/Cert Specialty Diagnoses / Procedures Referred By Bulmaro muniz Referred To Contact Diagnoses Right BKA infection Referral ID Status Reason Start Date Expiration Date Visits Re quested Visits Authorized [id number] 1 1 Encounter Details Date Type Department Care Team (Late st Contact Info) Description 04/07/2025 8:36 PM EDT Anesthesia Event [facility] OR [address] [place] [address] Luci Alonso DO [address] [place] [address] Anesthesia Record Procedure Summary Procedure Name Responsible [...] drink = 0.6 oz pur e alcohol) [facility] Utilities Answer Date Recorded In the past 12 months has [employer], gas, oil, or water [employer] threatened to shut off services in your [...] or training? Not on file Preferred Language Filipino 04/07/2025 Sex and Gender Information Value Date [...] PACU on O2NC, breathing comfortably. Report to STEEL INSPECTOR at bedside. VSS. * Anesthesia Procedure Notes [...] Musculoskeletal Abdominal Substance History - negative use WATER RESOURCES PROJECT MANAGER Other ROS/Med Hx Other: Eliquis 04/04/25 Hgb 14.7 k 43.2 Factor 2 on eliquis +gerd Anesthesia Plan ASA 3 - emergent general Rapid sequence (Risks and benefits of general anesthesia discussed with patient (including [place], CVA, , recall,aspiration, oropharyngeal/dental damage), questions answered, agreeable to proceed. ) intravenous induction Anesthetic plan, risks, benefits, and alternatives have been provided, discussed and informed consent has been obtained with: patient. Plan discussed with MICROARRAY OPERATIONS VICE PRESIDENT. CODE STATUS: Code Status (Patient has no [...] documented as of this encounter Care Teams Ornamental Iron Worker Helper Relationship Specialty Start Date End Date Provider, No Known [facility] [place] [address] PCP - General 05/09/23 documented as of this encounter
--- OUTSIDE RECORDS SUMMARY | 2025-04-08 14:45 | XMS_ITS | Encounter Summary ---
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 Name Role Phone Provider, No Known Primary Care Provider Unavail able Reason for Visit * Reason Comments Leg Swelling * Auth/Cert Specialty Diagnoses / Procedures Referred By Contac t Referred To Contact Diagnoses Right BKA infection Referral ID Status Reason Start Date Expiration Date Visits Re quested Visits Authorized [id number] 1 1 Encounter Details Date Type Department Care Team (Late st Contact Info) Description 04/08/2025 2:45 PM EDT - 04/08/2025 4:04 PM EDT Surgery [facility] OR [address] [place] [address] Sushil Dean Jr., MD [address] [place] [address] [address] [id number] LEG DEBRIDEMENT AND IRRIGATION Social History Tobacco Use Types Packs/Day Years Used Date Smoking Tobacco: Never Smokeless Tobacco: Never Tobacco Cessation:Counseling Given: Not Answered Alcohol Use Standard Drinks/Week Comments Not Currently 0 (1 standard drink = 0.6 oz pur e alcohol) [facility] Utilities Answer Date Recorded In the past 12 months has [employer] electric, gas, oil, or water company threatened [...] or training? Not on file Preferred Language Maldivian 04/07/2025 Sex and Gender Information Value Date [...] 2:25 PM EDT Cherri Grimm RN * [place] Suicide Severity Rating Scale (Screener/Recent Self-Report) Question [...] from the original note were not included. [facility] Medicine Services DISCHARGE SUMMARY Patient [...] Date/Time Wound Culture - Swab, Leg, Right [[id number]] (Abnormal) (Susceptibility) Collected: 04/07/252106 Lab Status: Final [...] Units Date/Time FL C Arm During Surgery [[id number]] Resulted: 04/07/252137 Updated: 04/07/252137 Narrative: This procedure was auto-finalized with no dictation required. MRI Tibia Fibula Right With & Without Contrast [[id number]] Collected: 04/07/25 0938 Updated: 04/07/25 1001 Narrative: [...] Buenrostro 04/07/2025 9:58 AM EDT Workstation ID: [id number] MRI Tibia Fibula Right With & Without Contrast [[id number]] Collected: 04/04/252256 Updated: 04/04/252302 Narrative: MRI TIBIA [...] represent a small area of phlegmonous change (tmlqro10 image 10) measuring approximately 1.6 cm which [...] MD 04/04/2025 11:00 PM EDT Workstation ID: [id number] Pending Labs Order Current Status Fungus Culture [...] Male) Date of 1980 Social Security Number [id number] [place] [address] [place] [address] Sabianist Unknown Marital Status Unknown Admission Date 04/04/2025 [...] [place] [id number] Payor Plan Address Payor Plan Phone Number Payor Plan Fax Number Effective Dates [employer] [address] [address] 08/10/2023 - None Entered [facility] [address] Subscriber Name Subscriber Date Member ID WON DENNIS 1980 [id number] Emergency Contacts Admissions Manager Rn (Rel.) Home Phone Work Phone Mobile Phone Avril Dennis (Spouse) -- -- [phone] Robert Hackett (Relative) -- -- [phone] [facility] [address] [facility] [address] Patient: ROOM: [facility] Won Dennis [address] [place] [address] : 1980 SSN: [id number] Sex: M PCP: Provider, No Known Emergency Contact Information Name Relation Home Work Mobile Avril Dennis Spouse [phone] Other Contacts Name Relation Home Work Mobile Robert Hackett Relative [phone] INSURANCE PAYOR PLAN GROUP # SUBSCRIBER ID Primary: Secondary: MEDICARE [place] [id number] Admitting Diagnosis: 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] Order Date: Apr 09, 2025 Case Management Director Engineering Consult (Order ID: [id number]) Diagnosis: Priority: Routine Expected Date: Expiration Date: [...] INFECTIOUS DISEASE Progress Note Won Dennis 1980 [id number] Date of Consult: 04/10/2025 Admission Date: 04/04/2025 [...] which prompted him to seek treatment at [facility]. He is known to [...] Jr., MD, 20 mg at 04/09/25906 heparin 96964 units/250 mL (100 units/mL) in 0.45 % [...] Units Date/Time FL C Arm During Surgery [[id number]] Resulted: 04/07/252137 Updated: 04/07/252137 Narrative: This procedure was auto-finalized with no dictation required. MRI Tibia Fibula Right With & Without Contrast [[id number]] Collected: 04/07/2538 Updated: 04/07/25 1001 Narrative: MRI [...] Buenrostro 04/07/2025 9:58 AM EDT Workstation ID: [id number] Impression: Recurrent Right BKA stump abscess/cellulitis- this [...] Date/Time Wound Culture - Swab, Leg, Right [[id number]] (Abnormal) (Susceptibility) Collected: 04/07/252106 Lab Status: Final [...] Row Name 04/06/25 1143 Sit-Stand Transfer Sit-Stand [place] (Transfers) modified independence - Comment, (Sit-Stand Transfer) Pt stood from recliner. Not holding onto walker, pt able to pull his pants up while balancing on his one leg. -LM Row Name 04/06/25 1143 Gait/Stairs (Locomotion) [place] Level (Gait) modified independence - Distance in [...] Nurse Physical Therapy Education Title: PT OT TAX COMPLIANCE REPRESENTATIVE Therapies (Done) Topic: Physical Therapy (Done) Point: Mobility training (Done) Learning Progress Summary Patient Acceptance, E, VU,DU by at 04/06/2025 1147 Point: Precautions (Done) Learning Progress Summary Patient Acceptance, E, VU,DU by at 04/06/2025 1147 User Cabrera Initials Effective Dates Name Provider Type [facility] 01/24/25 - Susan Cavazos, PT Physical Therapist [...] Description Service Date Service Provider Modifiers Qty [id number] PT EVAL LOW COMPLEXITY 3 04/06/2025 Susan [...] mg Daily 04/05/2025 -- Route: Oral heparin 21927 units/250 mL (100 units/mL) in 0.45 % [...] 22 [facility] [address], [address] [facility], [address] Please schedule at [phone] VONDA Garcia 04/11/25 08:32 EDT Cosigned by Sushil Dean Jr., MD at 04/19/2025 10:33 AM EDT Associated attestation - Sushil Dean Jr., MD - 04/19/2025 10:33 AM EDT I have reviewed this documentation and agree. * Rosario Hill APRN - 04/10/2025 1:24 PM EDT Images from the original note were not included. [facility] Medicine Services PROGRESS NOTE Patient [...] Date/Time Wound Culture - Swab, Leg, Right [[id number]] (Abnormal) (Susceptibility) Collected: 04/07/252106 Lab Status: Final [...] mg Daily 04/05/2025 -- Route: Oral heparin 40705 units/250 mL (100 units/mL) in 0.45 % [...] 22 [facility] [address] [facility], [address] [facility], [address] Please schedule at [phone] VONDA Garcia 04/10/25 09:01 EDT Cosigned by Sushil Dean Jr., MD at 04/19/2025 10:33 AM EDT Associated attestation - Sushil Dean Jr., MD - 04/19/2025 10:33 AM EDT I have reviewed this documentation and agree. * Carlton Mead MD - 04/10/2025 7:38 AM EDT Images from the original note were not included. INFECTIOUS DISEASE Progress Note Won Dennis 1980 [id number] Date of Consult: 04/10/2025 Admission Date: 04/04/2025 [...] which prompted him to seek treatment at [facility]. He is known to [...] IRRIGATION; Surgeon: Sushil Dean Jr., MD; Location: [facility] OR; Service: Orthopedics; Laterality: Right; PLACEMENT OF WOUND VAC Right 04/07/2025 Procedure: WOUND VACUUM ASSISTED CLOSURE; Surgeon: Sushil Dean Jr., MD; Location: [facility] OR; Service: Orthopedics; Laterality: Right; WOUND CLOSURE [...] Jr., MD, 20 mg at 04/09/25906 heparin 29597 units/250 mL (100 units/mL) in 0.45 % [...] Units Date/Time FL C Arm During Surgery [[id number]] Resulted: 04/07/252137 Updated: 04/07/252137 Narrative: This procedure was auto-finalized with no dictation required. MRI Tibia Fibula Right With & Without Contrast [[id number]] Collected: 04/07/25937 Updated: 04/07/25 100 Narrative: MRI [...] Buenrostro 04/07/2025 9:58 AM EDT Workstation ID: [id number] Impression: Recurrent Right BKA stump abscess/cellulitis- this [...] 07:38 EDT * Larisa Hamilton [facility] - 04/10/2025 7:17 AM EDT Pharmacy [...] from the original note were not included. [facility] Medicine Services PROGRESS NOTE Patient [...] Date/Time Wound Culture - Swab, Leg, Right [[id number]] (Abnormal) Collected: 04/07/252106 Lab Status: Preliminary result [...] DO 04/09/25 * Larisa Hamilton [facility] - 04/09/2025 11:36 AM EDT Pharmacy [...] mg Daily 04/05/2025 -- Route: Oral heparin 81315 units/250 mL (100 units/mL) in 0.45 % [...] radiographs [facility] [address] [facility], [address] [facility], [address] Please schedule at [phone] VONDA Garcia 04/09/25 09:18 EDT Cosigned by Sushil Dean Jr., MD at 04/19/2025 10:33 AM EDT Associated attestation - Sushil Dean Jr., MD - 04/19/2025 10:33 AM EDT I have reviewed this documentation and agree. * Carlton Mead MD - 04/09/2025 8:25 AM EDT Images from the original note were not included. INFECTIOUS DISEASE Progress Note Won Dennis 1980 [id number] Date of Consult: 04/09/2025 Admission Date: 04/04/2025 [...] which prompted him to seek treatment at [facility]. He is known to [...] Surgeon: Sushil Dean Jr., MD; Location: [facility]; Service: Orthopedics; Laterality: Right; PLACEMENT OF WOUND VAC Right 04/07/2025 Procedure: WOUND VACUUM ASSISTED CLOSURE; Surgeon: Sushil Dean Jr., MD; Location: [facility] OR; Service: Orthopedics; Laterality: Right; [...] MD, 20 mg at 04/08/25 0800 heparin 53123 units/250 mL (100 units/mL) in 0.45 % [...] 0.4 mg, Intravenous, Q5 Min PRN, Benito Dena Jr., MD nitroglycerin (NITROSTAT) SL tablet 0.4 [...] Units Date/Time FL C Arm During Surgery [[id number]] Resulted: 04/07/252137 Updated: 04/07/252137 Narrative: This procedure was auto-finalized with no dictation required. MRI Tibia Fibula Right With & Without Contrast [[id number]] Collected: 04/07/25 0938 Updated: 04/07/25 1001 Narrative: [...] Chitra 04/07/2025 9:58 AM EDT Workstation ID: [id number] Impression: Recurrent Right BKA stump abscess/cellulitis- this [...] from the original note were not included. [facility] Medicine Services PROGRESS NOTE Patient [...] Buenrostro 04/07/2025 9:58 AM EDT Workstation ID: [id number] I have personally reviewed the therapy plans: [...] DO 04/08/25 * Hamilton, Larisa, [facility] - 04/08/2025 11:48 AM EDT Pharmacy [...] mg Daily 04/05/2025 -- Route: Oral heparin 08410 units/250 mL (100 units/mL) in 0.45 % [...] INFECTIOUS DISEASE Progress Note Won Dennis 1980 [id number] Date of Consult: 04/08/2025 Admission Date: 04/04/2025 [...] which prompted him to seek treatment at [facility]. He is known to [...] IRRIGATION; Surgeon: Sushil Dean Jr., MD; Location: [facility] OR; Service: Orthopedics; Laterality: Right; PLACEMENT OF WOUND VAC Right 04/07/2025 Procedure: WOUND VACUUM ASSISTED CLOSURE; Surgeon: Sushil Dean Jr., MD; Location: [facility] OR; Service: Orthopedics; Laterality: Right; [...] Oral, Q6H PRN, 500 mg at 04/06/25 5234 OR acetaminophen (TYLENOL) 160 MG/5ML oral solution [...] tablet 325 mg, 325 mg, Oral, BID, Ssuhil Dean Jr., MD, 325 mg at 04/07/25950 furosemide (LASIX) tablet 20 mg, 20 mg, Oral, Daily, Sushil Dean Jr., MD, 20 mg at 04/07/25950 heparin 96620 units/250 mL (100 units/mL) in 0.45 % [...] Units Date/Time FL C Arm During Surgery [[id number]] Resulted: 04/07/252137 Updated: 04/07/252137 Narrative: This procedure was auto-finalized with no dictation required. 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 (Treated by ID in [place] Dr. Harris). Dr. Torres treated him with [...] from the original note were not included. [facility] Medicine Services PROGRESS NOTE Patient [...] Buenrostro 04/07/2025 9:58 AM EDT Workstation ID: [id number] I have personally reviewed the therapy plans: [...] Preeti 04/07/25 * Larisa Hamilton, [facility] - 04/07/2025 11:56 AM EDT Pharmacy [...] INFECTIOUS DISEASE Progress Note Won Dennis 1980 [id number] Date of Consult: 04/07/2025 Admission Date: 04/04/2025 [...] which prompted him to seek treatment at [facility]. He is known to [...] MD, 20 mg at 04/06/25 0900 heparin 74556 units/250 mL (100 units/mL) in 0.45 % NaCl infusion, 18 Units/kg/hr, Intravenous, Titrated, Cherri Beatty, [facility], Last Rate: 24.1 mL/hr at 04/07/258, [...] With & Without Contrast - In process [[id number]] Resulted: 04/07/25828 Updated: 04/07/25828 This result has not been signed. Information might be incomplete. 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 (Treated by ID in [place] Dr. Harris). Dr. Torres treated him with [...] mg Daily 04/05/2025 -- Route: Oral heparin 64212 units/250 mL (100 units/mL) in 0.45 % [...] 06:07 EDT * Cherri Beatty [facility] - 04/06/2025 1:47 PM EDT Pharmacy [...] from the original note were not included. [facility] Medicine Services PROGRESS NOTE Patient [...] MD 04/04/2025 11:00 PM EDT Workstation ID: [id number] I have personally reviewed the therapy plans: [...] mg Daily 04/05/2025 -- Route: Oral heparin 90131 units/250 mL (100 units/mL) in 0.45 % [...] INFECTIOUS DISEASE follow up. Won Dennis 1980 [id number] Date of Consult: 04/06/2025 Admission Date: 04/04/2025 [...] which prompted him to seek treatment at [facility]. He is known to [...] 100 mL MBP, 2,000 mg, Intravenous, Q24H, Cartlon Mead MD, Last Rate: 200 mL/hr at [...] MD, 20 mg at 04/06/25 0900 heparin 19664 units/250 mL (100 units/mL) in 0.45 % NaCl infusion, 18 Units/kg/hr, Intravenous, Titrated, Cherri Beatty [facility], Last Rate: 24.1 mL/hr at 04/06/25 [...] Tibia Fibula Right With & Without Contrast [[id number]] Collected: 04/04/252256 Updated: 04/04/252302 Narrative: MRI TIBIA [...] represent a small area of phlegmonous change (rxivqn75 image 10) measuring approximately 1.6 cm which [...] MD 04/04/2025 11:00 PM EDT Workstation ID: [id number] Impression: 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 (Treated by ID in [place] Dr. Harris). Dr. Torres treated him with [...] from the original note were not included. [facility] Medicine Services PROGRESS NOTE Patient [...] MD 04/04/2025 11:00 PM EDT Workstation ID: [id number] I have personally reviewed the therapy plans: [...] from the original note were not included. [facility] Medicine Services HISTORY AND PHYSICAL [...] MD 04/04/2025 11:00 PM EDT Workstation ID: [id number] Assessment & Plan Assessment & Plan Won [...] by Rhoda Bonner RN [facility], tip verified by 3CG see LDA. * Sushil Dean Jr., MD - 04/05/2025 8:07 AM EDTAssociated Order(s): IP CONSULT TO ORTHOPEDIC SURGERY [facility], [facility] [address] [address] Orthopedic Consult Patient: Won Dennis Date of [...] was evaluated in the emergency department in [place], was discharged with instructions for follow-up. He [...] 04/03/2025 Morning Lactobacillus-Inulin ([facility]) capsule Take 200 [...] MD 04/04/2025 11:00 PM EDT Workstation ID: [id number] Assessment: Right BKA infection 44-year-old male with [...] DISEASE CONSULT/INITIAL HOSPITAL VISIT Won Dennis 1980 [id number] Date of Consult: 04/05/2025 Admission Date: 04/04/2025 [...] which prompted him to seek treatment at [facility]. He is known to [...] Leonora Shepherd MD, 40 mg at 04/04/25 8632 sennosides-docusate (PERICOLACE) 8.6-50 MG per tablet 2 [...] MD, 20 mg at 04/05/25 09 heparin 54769 units/250 mL (100 units/mL) in 0.45 % [...] Leonora Shepherd MD, 10 mg at 04/04/25 1559 Pharmacy to Dose Heparin, , Not Applicable, [...] Tibia Fibula Right With & Without Contrast [[id number]] Collected: 04/04/252256 Updated: 04/04/252302 Narrative: MRI TIBIA [...] represent a small area of phlegmonous change (ntobqw82 image 10) measuring approximately 1.6 cm which [...] MD 04/04/2025 11:00 PM EDT Workstation ID: [id number] Impression: 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 (Treated by ID in [place] Dr. Harris). Dr. Torres treated him with [...] infection POSTOP DIAGNOSIS: Same. PROCEDURE: Right Right 88272: Secondary closure below-knee amputation SURGEON: Sushil Dean MD OPERATIVE TEAM: Bread Dumper: Susi Grullon RN Scrub Person: Mary Paredes Scrub Person Extra: Hortencia Toribio Other: Katt Gotti RN; Charis Neville RN ANESTHETIST: Anesthesiologist: Ulises Hoffman MD TRUCK DRIVER SUPERVISOR: Stan Casillas CRNA Student Nurse Kettle Room Helper: Karol Albert SRNA ANESTHESIA: Choice ESTIMATED BLOOD [...] CULTURE (Canceled) Sushil Dean Jr., MD 04/08/25 2257 Description: RIGHT LEG DEEP WOUND FOR CULTURE [...] PM EDT [facility], [place] [address] OPERATIVE REPORT PATIENT NAME: Won Dennis DATE OF : 1980 PREOP DIAGNOSIS: Right Right below knee amputation stump infection POSTOP DIAGNOSIS: Same. PROCEDURE: Right Right 27257: Incision and drainage of surgical site infection 14626: Debridement of skin, subcutaneous tissue, muscle 08000: Wound vacuum-assisted closure SURGEON: Sushil Dean MD OPERATIVE TEAM: Bread Dumper: Anum Sanchez RN Scrub Person: Hortencia Toribio; Gerald Ivey MUFFLE OPERATOR: Anesthesiologist: Luci Alonso DO ANESTHESIA: General [...] ago swell[place] of the area. seen at [facility] yesterday for CT and [...] this chart in the absence of a staff air tactical officer. No orders to display RADIOLOGY: [x] [...] Stay Note DENISHA Munguia Patient Name: Won eDnnis Today's Date: 04/11/2025 Admit Date: 04/04/2025 Plan: Home with outpatient infusion. Discharge Plan Row Name 04/11/25 1155 Plan Plan Home with outpatient infusion. Final Discharge Disposition Code 01 - home or self-care Final Note Patient discharging today. He is discharging home with outpatient infusion at [facility]. He has an appointment with [facility] at 8:00 am tomorrow. They [...] with KELLEE and given themhis Medicare number [id number], she sent it to Admission. DEBRA spoke [...] changes and lab work. DEBRA called [facility] infusion center they can accept patient and start him. He is known for their facility. The Facility will need to run it through his insurance first. CM faxed the orders over to [facility] at [phone]. CM will follow up with them tomorrow at [facility] to make sure they received [...] with patient at bedside today. Wheelchair from [facility] is at bedside. Patient getting PICC line [...] family Patient/Family Anticipated Services at Transition director of caseworkcity maintenance manager Anticipated family or friend will provide Discharge Needs Assessment Equipment Currently Used at Home glucometer;shower chair;pulse ox;bp cuff;prosthesis;crutches Equipment Needed After Discharge none Discharge Plan Row Name 04/07/25 1144 Plan Plan Home Patient/Family in Agreement with Plan yes Plan Comments CM spoke with patient at bedside today. Patient lives with and his 5 kids in [facility]. 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 He has walker, cane, shower chair, and crutches. He requested a wheelchair for home. CM will order wheelchair through [facility]. He is not current with [...] General Information Arrived From hospital Preferred Language Maldivian Functional Status Row Name 04/07/25 1143 Functional [...] 3:40 AM EDT) [facility] [address] WBC 7.87 3.40 - 10.80 10*3/mm3 04/11/2025 [...] 79.0 - 97.0 fL 04/11/2025 4:02 AM [facility] MCH 27.2 [...] 0.3 - 6.2 % 04/11/2025 4:02 AM [facility] Basophil % 0.4 0.0 - 1.5 % 04/11/2025 4:[facility] Immature Grans % [...] Result [facility]
[address] [place] [address], * (ABNORMAL) Comprehensive Metabolic Panel (04/11/2025 3:40 [...] Result [facility]
[address] [place] [address], * (ABNORMAL) CBC Auto Differential (04/10/2025 3:46 [...] 26.6 - 33.0 pg 04/10/2025 3:56 [facility] MCHC 32.2 31.5 - 35.7 g/dL 04/10/2025 3:56 AM EDT [facility] RDW 12.9 12.3 - 15.4 % 04/10/2025 3:56 [facility] RDW-SD 40.5 37.0 [...] - 45.3 % 04/10/2025 3:56 [facility] Monocyte % 8.1 5.0 - 12.0 % 04/10/2025 3:56 AM [facility] Eosinophil % 3.2 0.3 - 6.2 % 04/10/2025 3:56 AM [facility] Basophil % 0.4 0.0 - 1.5 % 04/10/2025 3:56 AM [facility] Immature Grans % 0.2 0.0 - 0.5 % 04/10/2025 3:56 [facility] Neutrophils, Absolute 5.67 1.70 - 7.00 10*3/mm3 04/10/2025 3:56 [facility] Lymphocytes, Absolute 2.78 0.70 - 3.10 10*3/mm3 04/10/2025 3:56 AM [facility] Monocytes, Absolute 0.78 0.10 - 0.90 10*3/mm3 04/10/2025 3:56 AM [facility] Eosinophils, Absolute 0.31 [...] t [facility]
[address] [place] [address], * (ABNORMAL) Basic Metabolic Panel (04/10/2025 3:46 [...] t [facility]
[address] [place] [address], * Heparin Anti-Xa (04/10/2025 3:46 AM EDT) Heparin Anti-Xa (UFH) 0.35 0.30 - 0.70 IU/ml 04/10/2025 4:23 AM EDT [facility] Blood Venipuncture / Unknown 04/10/2025 3:46 AM EDT 04/10/2025 3:53 AM EDT Larisa Hamilton [facility] BLOOD ORDERABLES Final R esult [facility]
[address] [place] [address], * Heparin Anti-Xa (04/09/2025 10:05 AM EDT) Pathologist [facility] Heparin Anti-Xa (UFH) 0.36 0.30 - 0.70 IU/ml 04/09/2025 11:12 AM EDT [facility] Blood Venipuncture / Unknown 04/09/2025 10:05 AM EDT 04/09/2025 10:47 AM EDT Larisa Hamilton [facility] BLOOD ORDERABLES Final R esult [facility]
[address] [place] [address], * (ABNORMAL) CBC Auto Differential (04/09/2025 4:18 [...] 140 - 450 10*3/mm3 04/09/2025 4:50 AM [facility] [...] 0.10 - 0.90 10*3/mm3 04/09/2025 4:50 AM [facility] Eosinophils, Absolute 0.07 0.00 - 0.40 10*3/mm3 04/09/2025 4:50 AM [facility] Basophils, Absolute 0.04 [...] Fi nal Result Performing Organization Address City/[facility]/ZIP Co de Phone Number [facility]
[address] [place] [address], * Heparin Anti-Xa (04/09/2025 4:18 AM EDT) Heparin Anti-Xa (UFH) 0.41 0.30 - 0.70 IU/ml 04/09/2025 4:53 AM EDT [facility] Blood Venipuncture / Unknown 04/09/2025 4:18 AM EDT 04/09/2025 4:31 AM EDT Una LundbergD LAB BLOOD ORDERABLES Final R esult [facility]
[address] [place] [address], * (ABNORMAL) Basic Metabolic Panel (04/09/2025 4:18 [...] [facility]
[address] [place] [address], * Wound Culture - Swab, Leg, Right [...] ORDERABLES Final Result Performing Organization Address City/[facility]/ZIP Co de Phone Number [facility]
[address] [place] [address], [facility]
[address] [place] [address], * Anaerobic Culture - Swab, Leg, Right (04/08/2025 3:40 PM EDT) Anaerobic Culture No anaerobes isolated at 5 days ALIZA 04/13/2025 7:24 AM EDT [facility] Swab Structure of right lower limb / Unknown 04/08/2025 3:40 PM EDT 04/08/2025 8:05 PM EDT us Sushil Dean Jr., MD MICROBIOLOGY - GENERAL ORDERABLES Final Result Performing Organization Address City/[facility]/ZIP Co de Phone Number [facility]
[address] [place] [address], * Scan Slide (04/08/2025 8:41 AM EDT) [...] esult [facility]
[address] [place] [address], * (ABNORMAL) CBC Auto Differential (04/08/2025 8:41 [...] [facility]
[address] [place] [address], * (ABNORMAL) Basic Metabolic Panel (04/08/2025 8:41 [...] Fi nal Result Performing Organization Address City/[facility]/ZIP Co de Phone Number [facility]
[address] [place] [address], * Heparin Anti-Xa (04/08/2025 8:41 AM EDT) Heparin Anti-Xa (UFH) 0.33 0.30 - 0.70 IU/ml 04/08/2025 9:40 AM EDT [facility] Blood Venipuncture / Unknown 04/08/2025 8:41 AM EDT 04/08/2025 9:10 AM EDT Sushil Dean Jr., MD LAB BLOOD ORDERABLES Fi nal Result Performing Organization Address City/[facility]/ZIP Co de Phone Number [facility]
[address] [place] [address], * FL C Arm During Surgery (04/07/2025 [...] ORDERABLES Final Result Performing Organization Address City/[facility]/ZIP Co de Phone Number [facility]
[address] [place] [address], [place] [phone] [facility]
[address] [place] [address], [place] [phone] * Anaerobic Culture - Swab, Leg, Right [...] Result [facility]
[address] [place] [address], * Anaerobic Culture - Tissue, Leg (04/07/2025 9:13 PM EDT) Anaerobic Culture No anaerobes isolated at 5 days ALIZA 04/13/2025 7:21 AM EDT [facility] Tissue Lower limb structure / Unknown Collection / Unknown 04/07/2025 9:13 PM EDT 04/08/2025 4:54 AM EDT Jason Álvarez DO MICROBIOLOGY - GENERAL ORDERABLE S Final Result Performing Organization Address [facility]/State/ZIP Co de Phone Number [facility]
[address] [place] [address], * Tissue / Bone Culture - Tissue, [...] Result [facility]
[address] [place] [address], [facility]
[address] [place] [address], [place] [phone] * (ABNORMAL) Wound Culture - Swab, Leg, [...] Result [facility]
[address] [place] [address], [place] [phone] [facility]
[address] [place] [address], [place] [phone] * Anaerobic Culture - Swab, Leg, Right [...] [facility]
[address] [place] [address], * Heparin Anti-Xa (04/07/2025 9:10 AM EDT) Pathologist [facility] Heparin Anti-Xa (UFH) 0.30 0.30 - 0.70 IU/ml 04/07/2025 10:12 AM EDT [facility] Blood Venipuncture / Unknown 04/07/2025 9:10 AM EDT 04/07/2025 9:38 AM EDT Una Perla PharmD LAB BLOOD ORDERABLES Final R esult Performing Organization Address City/[facility]/ZIP Co de Phone Number [facility]
[address] [place] [address], * (ABNORMAL) CBC Auto Differential (04/07/2025 9:10 [...] t [facility]
[address] [place] [address], * (ABNORMAL) Basic Metabolic Panel (04/07/2025 9:10 [...] t [facility]
[address] [place] [address], * MRI Tibia Fibula Right With & [...] [place] 04/07/2025 9:58 AM EDT Workstation ID: [id number] Narrative 04/07/2025 9:58 AM EDT MRI TIBIA [...] [place] 04/07/2025 9:58 AM EDT Workstation ID: [id number] Sushil Dean Jr., MD IMG MRI ORDERABLES Mary Beth l Result * Heparin Anti-Xa (04/07/2025 1:42 AM EDT) [facility] [address] Heparin Anti-Xa (UFH) 0.38 0.30 - 0.70 IU/ml 04/07/2025 2:14 AM EDT [facility] Blood Venipuncture / Unknown 04/07/2025 1:42 AM EDT 04/07/2025 1:54 AM EDT Chelsie Turpin [facility] LAB BLOOD ORDERABLES Final R esult [facility]
[address] [place] [address], * Heparin Anti-Xa (04/06/2025 7:16 PM EDT) [facility] [address] Heparin Anti-Xa (UFH) 0.33 0.30 - 0.70 IU/ml 04/06/2025 7:50 PM EDT [facility] Blood Venipuncture / Unknown 04/06/2025 7:16 PM EDT 04/06/2025 7:35 PM EDT Cherri Beatty [facility] LAB BLOOD ORDERABLES Final Res ult Performing Organization Address [facility] Co de Phone Number [facility]
[address] [place] [address], * Potassium (04/06/2025 7:16 PM EDT) [facility] [address] Potassium 4.0 3.5 - 5.2 mmol/L 04/06/2025 7:53 PM EDT [facility] Blood Venipuncture / Unknown 04/06/2025 7:16 PM EDT 04/06/2025 7:35 PM EDT Jason Álvarez DO LAB BLOOD ORDERABLES Final Resul t Performing Organization Address [facility] de Phone Number [facility]
[address] [place] [address], * (ABNORMAL) Heparin Anti-Xa (04/06/2025 12:36 PM EDT) [facility] [address] Heparin Anti-Xa (UFH) 0.24(L) 0.30 - 0.70 IU/ml 04/06/2025 1:23 PM EDT [facility] Blood Venipuncture / Unknown 04/06/2025 12:36 PM EDT 04/06/2025 1:07 PM EDT Una Perla PharmD LAB BLOOD ORDERABLES Final R esult Performing Organization Address [facility] Co de Phone Number [facility]
[address] [place] [address], * (ABNORMAL) Heparin Anti-Xa (04/06/2025 3:42 AM EDT) [facility] [address] Heparin Anti-Xa (UFH) 0.25(L) 0.30 - 0.70 IU/ml 04/06/2025 5:30 AM EDT [facility] Blood Venipuncture / Unknown 04/06/2025 3:42 AM EDT 04/06/2025 4:59 AM EDT Chelsie Dyana [facility] LAB BLOOD ORDERABLES Final R esult [facility]
[address] [place] [address], * (ABNORMAL) Basic Metabolic Panel (04/06/2025 3:42 AM EDT) [facility] [address] Glucose 94 65 - 99 mg/dL 04/06/2025 [...] t [facility]
[address] [place] [address], * (ABNORMAL) CBC Auto Differential (04/06/2025 3:41 [...] 79.0 - 97.0 fL 04/06/2025 5:[facility] M[facility] 27.4 26.6 [...] 0.0 - 1.5 % 04/06/2025 5:04 AM [facility] Immature Grans % 0.3 0.0 - 0.5 % 04/06/2025 5:04 AM [facility] Neutrophils, Absolute 7.09(H) 1.70 - 7.00 10*3/mm3 04/06/2025 5:04 AM [facility] Lymphocytes, Absolute 2.23 0.70 - 3.10 10*3/mm3 04/06/2025 5:04 AM [facility] Monocytes, Absolute 1.28(H) 0.10 [...] Final Resul t Performing Organization Address City/[facility] Co de Phone Number [facility]
[address] [place] [address], [place] [phone] * Heparin Anti-Xa (04/05/2025 8:43 PM EDT) Pathologist [facility] Heparin Anti-Xa (UFH) 0.38 0.30 - 0.70 IU/ml 04/05/2025 9:09 PM EDT [facility] Blood Venipuncture / Unknown 04/05/2025 8:43 PM EDT 04/05/2025 8:55 PM EDT us Cherri Beatty [facility] LAB BLOOD ORDERABLES Final Res ult Performing Organization Address City/[facility] Co de Phone Number [facility]
[address] [place] [address], [place] [phone] * CK (04/05/2025 12:15 PM EDT) Creatine Kinase 140 20 - 200 U/L 04/05/2025 1:31 PM EDT [facility] Blood Venipuncture / Unknown 04/05/2025 12:15 PM EDT 04/05/2025 1:03 PM EDT Carlton Mead MD LAB BLOOD ORDERABLES Final R esult Performing Organization Address City/[facility]/ZIP Co de Phone Number [facility]
[address] [place] [address], * (ABNORMAL) Heparin Anti-Xa (04/05/2025 12:15 PM EDT) [facility] [address] Heparin Anti-Xa (UFH) 0.17(L) 0.30 - 0.70 IU/ml 04/05/2025 1:21 PM EDT [facility] Blood Venipuncture / Unknown 04/05/2025 12:15 PM EDT 04/05/2025 1:04 PM EDT Una Perla PharmD LAB BLOOD ORDERABLES Final R esult Performing Organization Address City/[facility] Co de Phone Number [facility]
[address] [place] [address], * (ABNORMAL) aPTT (04/05/2025 3:54 AM EDT) [facility] [address] PTT 35.3(L) 60.0 - 90.0 seconds 04/05/2025 4:31 AM EDT [facility] Blood Venipuncture / Unknown 04/05/2025 3:54 AM EDT 04/05/2025 4:15 AM EDT Narrative [facility] - 04/05/2025 4:31 AM EDT PTT = The equivalent PTT values for the therapeutic range of heparin levels at 0.3 to 0.5 U/ml are 60 to 70 seconds. [employer]-ZassiD LAB BLOOD ORDERABLES Final R esult [facility]
[address] [place] [address], * Heparin Anti-Xa (04/05/2025 3:54 AM EDT) Pathologist [facility] Heparin Anti-Xa (UFH) 0.30 0.30 - 0.70 IU/ml 04/05/2025 4:32 AM EDT [facility] Blood Venipuncture / Unknown 04/05/2025 3:54 AM EDT 04/05/2025 4:15 AM EDT e-ZassiD LAB BLOOD ORDERABLES Final R esult Performing Organization Address City/[facility]/ZIP Co de Phone Number [facility]
[address] [place] [address], * (ABNORMAL) CBC Auto Differential (04/05/2025 3:54 AM EDT) [facility] [address] WBC 11.18(H) 3.40 - 10.80 10*3/mm3 04/05/2025 [...] esult [facility]
[address] [place] [address], * (ABNORMAL) Basic Metabolic Panel (04/05/2025 3:54 [...] sult [facility]
[address] [place] [address], * (ABNORMAL) aPTT (04/05/2025 12:18 AM EDT) [...] 0.5 U/ml are 60 to 70 seconds. [employer] PharmD LAB BLOOD ORDERABLES Final R esult [facility]
[address] [place] [address], [place] [phone] * (ABNORMAL) Protime-INR (04/05/2025 12:18 AM EDT) Protime 15.9(H) 12.2 - 15.3 Seconds 04/05/2025 12:53 AM EDT [facility] INR 1.19(H) 0.89 - 1.12 04/05/2025 12:53 AM EDT [facility] Blood Venipuncture / Unknown 04/05/2025 12:18 AM EDT 04/05/2025 12:37 AM EDT [employer] PharmD LAB BLOOD ORDERABLES Final R esult Performing Organization Address [facility] Co de Phone Number [facility]
[address] [place] [address], [place] [phone] * Heparin Anti-Xa (04/05/2025 12:18 AM EDT) Pathologist [facility] Heparin Anti-Xa (UFH) 0.39 0.30 - 0.70 IU/ml 04/05/2025 12:54 AM EDT [facility] Blood Venipuncture / Unknown 04/05/2025 12:18 AM EDT 04/05/2025 12:37 AM EDT [employer] PharmD LAB BLOOD ORDERABLES Final R esult Performing Organization Address City/[facility]/ZIP Co de Phone Number [facility]
[address] [place] [address], [place] [phone] * MRI Tibia Fibula Right With & [...] MD 04/04/2025 11:00 PM EDT Workstation ID: [id number] Narrative 04/04/2025 11:00 PM EDT MRI TIBIA [...] MD 04/04/2025 11:00 PM EDT Workstation ID: [id number] Leonora Shepherd MD IMG MRI ORDERABLES Final Resu lt * POC Creatinine (04/04/2025 2:49 PM EDT) Creatinine 1.10 0.60 - 1.30 mg/dL 04/07/2025 7:14 PM EDT [facility] Comment:Serial Number: [id number] 7Operator: [id number] Venous Blood 04/04/2025 2:49 PM EDT 04/07/2025 7:14 PM EDT Jason Álvarez DO POINT OF CARE TEST ORDERABLES Fi nal Result [facility]
[address] [place] [address], [place] [phone] * (ABNORMAL) CBC Auto Differential (04/04/2025 2:47 PM EDT) [facility] Signature WBC 12.72(H) 3.40 - 10.80 10*3/mm3 [...] Result [facility]
[address] [place] [address], * (ABNORMAL) C-reactive Protein (04/04/2025 2:47 PM EDT) Pathologist [facility] C-Reactive Protein 8.57(H) 0.00 - 0.50 mg/dL 04/04/2025 3:26 PM EDT [facility] Blood Venipuncture / Unknown 04/04/2025 2:47 PM EDT 04/04/2025 2:52 PM EDT Mario Ortiz Keo LAB BLOOD ORDERABLES Fin al Result [facility]
[address] [place] [address], * (ABNORMAL) Sedimentation Rate (04/04/2025 2:47 PM EDT) [facility] [address] Sed Rate 51(H) 0 - 15 mm/hr 04/04/2025 3:06 PM EDT [facility] Blood Venipuncture / Unknown 04/04/2025 2:47 PM EDT 04/04/2025 2:52 PM EDT Mario Ortiz Keo LAB BLOOD ORDERABLES Fin al Result Performing Organization Address City/[facility]/ZIP Co de Phone Number [facility]
[address] [place] [address], * Comprehensive Metabolic Panel (04/04/2025 2:47 PM EDT) [facility] [address] Glucose 90 65 - 99 mg/dL 04/04/2025 [...] Result [facility]
[address] [place] [address], documented in this encounter Visit Diagnoses Diagnosis [...] Salazar, KELL)1943 (Given - Provider: Anahy Marcelino, PICKLING 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)[id number] (Canceled Entry - Provider: Anahy Marcelino PICKLING 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 - Comment: previously given) 0837 (Given [...] medication prescribed for a lower pain scale. ([facility]) If given for pain, use the following [...] Continuous Medication Order 04/09/2025 04/10/2025 04/11/2025 heparin 20727 units/250 mL (100 units/mL) in 0.45 % [...] documented as of this encounter Care Teams [employer]inist Relationship Specialty Start Date End Date Provider, [place] [address] PCP - General 05/09/23 documented as of this encounter
--- OUTSIDE RECORDS SUMMARY | 2025-04-08 15:34 | XMS_ITS | Encounter Summary ---
Author Organization [facility] Address [address] [place] [address] Care Team Providers Care Line Palletizer Name Role Phone Provider, No Known Primary Care Provider Unavail able Reason for Visit * Auth/Cert Specialty Diagnoses / Procedures Referred By Bulmaro muniz Referred To Contact Diagnoses Right BKA infection Referral ID Status Reason Start Date Expiration Date Visits Re quested Visits Authorized [id number] 1 1 Encounter Details Date Type Department Care Team (Late st Contact Info) Description 04/08/2025 3:34 PM EDT Anesthesia Event [facility] OR [address] [place] [address] Ulises Hoffman MD [address] [place] [address] Jairo Brooks MD [address] [place] [address] Anesthesia Record Procedure Summary Procedure Name Responsible [...] drink = 0.6 oz pur e alcohol) [facility] Utilities Answer Date Recorded In the past 12 months has [employer], oil, or water [employer] threatened to shut off services in your [...] or training? Not on file Preferred Language Mauritanian 04/07/2025 Sex and Gender Information Value Date Recorded Sex Assigned at Not on file Legal Sex Male 7:30 PM EDT Gender Identity Not on file Sexual Orientation Not on file documented as of this encounter OR Notes * Anesthesia Postprocedure Evaluation - Stan Casillas CRNA - 04/08/2025 4:40 PM EDT Patient: Won Dennis Procedure Summary Date: 04/08/25 Room / Location: [facility] OR [address] [place] [address] [facility] [place] Anesthesia Start: 1533 Anesthesia Stop: [...] ROS Abdominal Substance History - negative use COLOR BLENDER negative security guard supervisor ROS Other Anesthesia Plan ASA 3 general [...] documented as of this encounter Care Teams Line Palletizer Relationship Specialty Start Date End Date Provider, [place] [address] PCP - General 05/09/23 documented as of this encounter
--- OUTSIDE RECORDS SUMMARY | 2025-04-22 09:28 | XMS_ITS | Clinical Summary ---
Author Organization [facility] Address [address] [facility] [address] [place] [address] Phone Care Team Providers Care Aircraft Assembler Name Role Phone Unavailable Unavailable Conditions or Problems No information available. Medications No information available. Medications Administered No information available. Allergies, Adverse Reactions, Alerts No information available. Results No information available. Plan of Care No information available. Procedures No information available. Vital Signs No information available. Immunizations No information available. Advance Directives No information available.
--- OUTSIDE RECORDS SUMMARY | 2025-04-22 09:29 | XMS_ITS | Clinical Summary ---
Author Organization [facility] Address [address] [place] [address] Care Team Providers Care Registered Nurse Behavioral Health Name Role Phone Provider, No Known Primary [...] Discontinue d(Stop Taking at Discharge) Lactobacillus- Inulin ([facility] Caliber Data [facility]) [...] Description 04/08/2025 3:34 PM EDT Anesthesia Event [facility] [place] [place] [place] [address] [place] [phone] Ulises Hoffman MD Wells, Jeremy B., MD 04/08/2025 2:45 PM EDT - 04/08/2025 4:04 PM EDT Surgery [facility] OR [address] [place] [address] Sushil Dean Jr., MD LEG DEBRIDEMENT AND IRRIGATION 04/07/2025 8:36 PM EDT Anesthesia Event [facility] OR [address] [place] [address] Luci Alonso DO 04/07/2025 6:00 PM EDT - 04/07/2025 6:52 PM EDT Surgery [facility] OR [address] [place] [address] Sushil Dean Jr., MD LEG DEBRIDEMENT, IRRIGATION 04/04/2025 4:10 PM EDT - 04/11/2025 1:58 PM EDT Hospital Encounter [facility] [address]G [address] [place] [address] Mario Crowley DO Anderson, Laurie, [...] Recorded In the past 12 months has [employer], gas, oil, or water [facility] [employer] threatened to shut off services in your [...] or training? Not on file Preferred Language Panamanian 04/07/2025 Sex and Gender Information Value Date [...] this topic Medical Devices Implanted Type Area Pizzamaker Device Identifier Shelf Expiration Date Model / Serial / Lot Dev Wnd/Cls Contrl Tiss Stratafix Spiral Pls Pds Ct1 0 22cm - [id number] Implanted:Qty: 1 on 04/08/2025 by Sushil Dean Jr., MD at [facility] Implant Right: Leg [employer] 12/07/2025 [id number] / / [id number] Procedures Procedure Name Priority [...] resultswithin the time period is included. Pathologist [facility] WBC 7.87 3.40 - 10.80 10*3/mm3 04/11/2025 4:02 AM EDT [facility] RBC 4.70 4.14 - 5.80 10*6/mm3 04/11/2025 4:02 AM EDT [facility] Hemoglobin 12.8(L) 13.0 - 17.7 g/dL 04/11/2025 4:02 AM EDT [facility] Hematocrit 40.5 37.5 - 51.0 % 04/11/2025 4:02 AM EDT [facility] MCV 86.2 79.0 - 97.0 fL 04/11/2025 4:02 AM EDT [facility] MCH 27.2 26.6 - 33.0 pg 04/11/2025 4:02 AM EDT [facility] MCHC 31.6 31.5 - 35.7 g/dL 04/11/2025 4:02 AM EDT [facility] RDW 12.9 12.3 - 15.4 % 04/11/2025 4:02 AM EDT [facility] RDW-SD 40.5 37.0 - 54.0 fl 04/11/2025 4:02 AM EDT [facility] MPV 9.2 6.0 - 12.0 fL 04/11/2025 4:02 AM EDT [facility] Platelets 267 140 - 450 10*3/mm3 04/11/2025 4:02 AM EDT [facility] Neutrophil % 59.5 42.7 - 76.0 % 04/11/2025 4:02 AM EDT [facility] Lymphocyte % 26.3 19.6 - 45.3 % 04/11/2025 4:02 AM EDT [facility] Monocyte % 9.3 5.0 - 12.0 % 04/11/2025 4:02 AM [facility] Eosinophil % 4.1 0.3 - 6.2 % 04/11/2025 4:02 AM EDT [facility] Basophil % 0.4 0.0 - 1.5 % 04/[facility]25 [facility] Immature Grans % 0.4 0.0 - 0.5 % 04/11/2025 4:02 AM [facility] Neutrophils, Absolute 4.69 1.70 - 7.00 10*3/mm3 04/11/2025 4:02 AM [facility] Lymphocytes, Absolute 2.07 0.70 - 3.10 10*3/mm3 04/11/2025 4:02 AM [facility] Monocytes, Absolute 0.73 0.10 - 0.90 10*3/mm3 04/11/2025 4:02 AM [facility] Eosinophils, Absolute 0.32 0.00 - 0.40 10*3/mm3 04/11/2025 4:02 AM [facility] Basophils, Absolute 0.03 0.00 - 0.20 10*3/mm3 04/11/2025 4:02 AM [facility] Immature Grans, Absolute 0.03 0.00 - 0.05 10*3/mm3 04/11/2025 4:02 AM [facility] nRBC 0.0 0.0 - 0.2 /100 WBC 04/11/2025 4:02 AM [facility] Blood Venipuncture / Unknown 04/11/2025 3:40 AM EDT 04/11/2025 3:59 AM EDT Sushil Dean Jr., MD LAB BLOOD ORDERABLES Fi nal Result [facility]
[address] [place] [address], * (ABNORMAL) Comprehensive Metabolic Panel (04/11/2025 3:40 AM EDT) Only the most recent of2 resultswithin the time period is included. Glucose 108(H) 65 - 99 mg/dL 04/11/2025 4:19 AM EDT [facility] BUN 12.5 6.0 - 20.0 mg/dL 04/11/2025 4:19 AM EDT [facility] Creatinine 0.68(L) 0.76 - 1.27 mg/dL 04/11/2025 4:19 AM EDT [facility] Sodium 140 136 - 145 mmol/L 04/11/2025 4:19 AM EDT [facility] Potassium 3.8 3.5 - 5.2 mmol/L 04/11/2025 4:19 AM EDT [facility] Chloride 105 98 - 107 mmol/L 04/11/2025 4:19 AM EDT [facility] CO2 28.2 22.0 - 29.0 mmol/L 04/11/2025 4:19 AM EDT [facility] Calcium 8.2(L) 8.6 - 10.5 mg/dL 04/11/2025 4:19 AM EDT [facility] Total Protein 6.1 6.0 - 8.5 g/dL 04/11/2025 4:19 AM EDT [facility] Albumin 3.1(L) 3.5 - 5.2 g/dL 04/11/2025 4:19 AM EDT [facility] ALT (SGPT) 52(H) 1 - 41 U/L 04/11/2025 4:19 AM EDT [facility] AST (SGOT) 40 1 - 40 U/L 04/11/2025 4:19 AM EDT [facility] Alkaline Phosphatase 99 39 - 117 U/L 04/11/2025 4:19 AM EDT [facility] Total Bilirubin 0.2 0.0 - 1.2 mg/dL 04/11/2025 4:19 AM EDT [facility] Globulin 3.0 gm/dL 04/11/2025 4:19 AM EDT [facility] Comment:Calculated Result A/G Ratio 1.0 g/dL 04/11/2025 4:19 AM EDT [facility] BUN/Creatinine Ratio 18.4 7.0 - 25.0 04/11/2025 4:19 AM EDT [facility] Anion Gap 6.8 5.0 - 15.0 mmol/L 04/11/2025 4:19 AM EDT [facility] eGFR 117.5 >60.0 mL/min/1.7 3 04/11/2025 4:19 AM EDT [facility] Blood Venipuncture / Unknown 04/11/2025 [...] race as a factor us Rosario Hill SOCIAL SECURITY ASSESSOR LAB BLOOD ORDERABLES Final Result [facility]
[address] [id number], * Heparin Anti-Xa (04/10/2025 3:46 AM EDT) Only the most recent of13 resultswithin the time period is included. Heparin Anti-Xa (UFH) 0.35 0.30 - 0.70 IU/ml 04/10/2025 4:23 AM EDT [facility] Blood Venipuncture / Unknown 04/10/2025 3:46 AM EDT 04/10/2025 3:53 AM EDT Larisa Hamilton [facility] LAB BLOOD ORDERABLES Final R esult [facility]
[address] [place] [address], * (ABNORMAL) Basic Metabolic Panel (04/10/2025 3:46 AM EDT) Only the most recent of6 resultswithin the time period is included. [facility] Glucose 125(H) 65 - 99 mg/dL 04/10/2025 4:20 AM EDT [facility] BUN 15.9 6.0 - 20.0 mg/dL 04/10/2025 4:20 AM EDT [facility] Creatinine 0.77 0.76 - 1.27 mg/dL 04/10/2025 4:20 AM EDT [facility] Sodium 137 136 - 145 mmol/L 04/10/2025 4:20 AM EDT [facility] Potassium 3.9 3.5 - 5.2 mmol/L 04/10/2025 4:20 AM EDT [facility] Chloride 102 98 - 107 mmol/L 04/10/2025 4:20 AM EDT [facility] CO2 26.9 22.0 - 29.0 mmol/L 04/10/2025 4:20 AM EDT [facility] Calcium 7.9(L) 8.6 - 10.5 mg/dL 04/10/2025 4:20 AM EDT [facility] BUN/Creatinine Ratio 20.6 7.0 - 25.0 04/10/2025 4:20 AM EDT [facility] Anion Gap 8.1 5.0 - 15.0 mmol/L 04/10/2025 4:20 AM EDT [facility] eGFR 113.2 >60.0 mL/min/1.7 3 04/10/2025 4:20 AM EDT [facility] Blood Venipuncture / Unknown 04/10/2025 3:46 AM EDT 04/10/2025 3:52 AM EDT Narrative [facility] - 04/10/2025 4:20 AM EDT [...] DO LAB BLOOD ORDERABLES Final Resul t [facility]
[address] [place] [address], * Wound Culture - Swab, Leg, Right (04/08/2025 3:40 PM EDT) Only the most recent of3 resultswithin the time period is included. Wound Culture No growth at 3 days ALIZA 04/11/2025 10:40 AM EDT [facility] Gram Stain Few (2+) WBCs seen 04/11/2025 10:40 AM EDT [facility] Gram Stain No organisms seen 04/11/2025 10:40 AM EDT [facility] Swab Structure of right lower limb / Unknown 04/08/2025 3:40 PM EDT 04/08/2025 8:05 PM EDT Sushil Dean Jr., MD MICROBIOLOGY - GENERAL ORDERABLES Final Result Performing Organization Address City/[facility]/ZIP Co de Phone Number [facility]
[address] [place] [address], [facility]
[address] [place] [address], [place] [phone] * Anaerobic Culture - Swab, Leg, Right (04/08/2025 3:40 PM EDT) Only the most recent of4 resultswithin the time period is included. Anaerobic Culture No anaerobes isolated at 5 days ALIZA 04/13/2025 7:24 AM EDT [facility] Swab Structure of right lower limb / Unknown 04/08/2025 3:40 PM EDT 04/08/2025 8:05 PM EDT Sushil Dean Jr., MD MICROBIOLOGY - GENERAL ORDERABLES Final Result Performing Organization Address [facility] Co de Phone Number [facility]
[address] [place] [address], * Scan Slide (04/08/2025 8:41 AM EDT) RBC Morphology Normal Normal 04/08/2025 11:02 AM EDT [facility] WBC Morphology Normal Normal 04/08/2025 11:02 AM EDT [facility] Platelet Estimate Adequate Normal 04/08/2025 11:02 AM EDT [facility] Clumped Platelets Present None Seen 04/08/2025 11:02 AM EDT [facility] Blood Venipuncture / Unknown 04/08/2025 8:41 AM EDT 04/08/2025 9:10 AM EDT Una Perla PharmD LAB BLOOD ORDERABLES Final R esult Performing Organization Address City/[facility]/ZIP Co de Phone Number [facility]
[address] [place] [address], [place] [phone] * FL C Arm During Surgery (04/07/2025 9:32 PM EDT) Narrative SYSTEMGENERATED, DOCUMENTATION - 04/07/2025 9:38 PM EDT This procedure was auto-finalized with no dictation required. us Sushil Dean Jr., MD IMG FLUOROSCOPY ORDERAB LES Final Result * Tissue / Bone Culture - Tissue, Leg, Right (04/07/2025 9:13 PM EDT) Tissue Culture No growth at 3 days ALIZA 04/11/2025 10:36 AM EDT [facility] Gram Stain Rare (1+) WBCs seen 04/11/2025 10:36 AM EDT [facility] Gram Stain No organisms seen 04/11/2025 10:36 AM EDT [facility] Tissue Structure of right lower limb / Unknown 04/07/2025 9:13 PM EDT 04/08/2025 4:54 AM EDT us Sushil Dean Jr., MD MICROBIOLOGY - GENERAL ORDERABLES Final Result [facility]
[address] [place] [address], [facility]
[address] [place] [address], * BH AN ETT AIRWAY (04/07/2025 8:44 [...] [place] 04/07/2025 9:58 AM EDT Workstation ID: [id number] Narrative 04/07/2025 9:58 AM EDT MRI TIBIA [...] [place] 04/07/2025 9:58 AM EDT Workstation ID: [id number] Sushil Dean Jr., MD IMG MRI ORDERABLES Mary Beth l Result * Potassium (04/06/2025 7:16 PM EDT) Potassium 4.0 3.5 - 5.2 mmol/L 04/06/2025 7:53 PM EDT [facility] Blood Venipuncture / Unknown 04/06/2025 7:16 PM EDT 04/06/2025 7:35 PM EDT Jason Álvarez DO LAB BLOOD ORDERABLES Final Resul t Performing Organization Address City/[facility]/ZIP Co de Phone Number [facility]
[address] [place] [address], * CK (04/05/2025 12:15 PM EDT) Creatine Kinase 140 20 - 200 U/L 04/05/2025 1:31 PM EDT [facility] Blood Venipuncture / Unknown 04/05/2025 12:15 PM EDT 04/05/2025 1:03 PM EDT Carlton Mead MD LAB BLOOD ORDERABLES Final R esult Performing Organization Address City/[facility]/ZIP Co de Phone Number [facility]
[address] [place] [address], * (ABNORMAL) aPTT (04/05/2025 3:54 AM EDT) Only the most recent of2 resultswithin the time period is included. PTT 35.3(L) 60.0 - 90.0 seconds 04/05/2025 4:31 AM EDT [facility] Blood Venipuncture / Unknown 04/05/2025 3:54 AM EDT 04/05/2025 4:15 AM EDT Narrative [facility] - 04/05/2025 4:31 AM EDT PTT = The equivalent PTT values for the therapeutic range of heparin levels at 0.3 to 0.5 U/ml are 60 to 70 seconds. [employer] LAB BLOOD ORDERABLES Final R esult Performing Organization Address City/[facility]/ZIP Co de Phone Number [facility]
[address] [place] [address], * (ABNORMAL) Protime-INR (04/05/2025 12:18 AM EDT) Pathologist [facility] Protime 15.9(H) 12.2 - 15.3 Seconds 04/05/2025 12:53 AM EDT [facility] INR 1.19(H) 0.89 - 1.12 04/05/2025 12:53 AM EDT [facility] Blood Venipuncture / Unknown 04/05/2025 12:18 AM EDT 04/05/2025 12:37 AM EDT [employer] PharmD LAB BLOOD ORDERABLES Final R esult Performing Organization Address City/[facility]/ZIP Co de Phone Number [facility]
[address] [place] [address], * POC Creatinine (04/04/2025 2:49 PM EDT) Pathologist [facility] Creatinine 1.10 0.60 - 1.30 mg/dL 04/07/2025 7:14 PM EDT [facility] Comment:Serial Number: [id number] 7Operator: [id number] Venous Blood 04/04/2025 2:49 PM EDT 04/07/2025 7:14 PM EDT Jason Álvarez DO POINT OF CARE TEST ORDERABLES Fi nal Result Performing Organization Address [facility] Co de Phone Number [facility]
[address] [place] [address], * (ABNORMAL) Sedimentation Rate (04/04/2025 2:47 PM EDT) Sed Rate 51(H) 0 - 15 mm/hr 04/04/2025 3:06 PM EDT [facility] Blood Venipuncture / Unknown 04/04/2025 2:47 PM EDT 04/04/2025 2:52 PM EDT Mario Crowley LAB BLOOD ORDERABLES Fin al Result Performing Organization Address [facility] de Phone Number [facility]
[address] [place] [address], * (ABNORMAL) C-reactive Protein (04/04/2025 2:47 PM EDT) C-Reactive Protein 8.57(H) 0.00 - 0.50 mg/dL 04/04/2025 3:26 PM EDT [facility] Blood Venipuncture / Unknown 04/04/2025 2:47 PM EDT 04/04/2025 2:52 PM EDT Mario Crowley DO LAB BLOOD ORDERABLES Fin al Result Performing Organization Address [facility] Co de Phone Number [facility]
[address] [place] [address], from Last 3 Months Additional Health Concerns [...] Of Support Discussed With: Patient Care Teams Registered Nurse Behavioral Health Relationship Specialty Start Date End Date Provider, No Known [facility] [place] [address] PCP - General 05/09/23
--- OUTSIDE RECORDS SUMMARY | 2025-04-22 09:30 | XMS_ITS | Encounter Summary ---
Author Organization Healthcare Address [address] [place] [address] Care Team Providers Care Sign Builder Name Role Phone Unavailable Primary Care Provider Unavailabl e Encounter Details Date Type Department Care Team (Late st Contact Info) Description 08/12/2022 Lab Requisition [facility] [address] [place] [address] Sushil Dean MD [address] [place] [address] Encounter for general adult medical examination without [...] has been identified using the FDA Approved [employer] CA System The organism value for this [...] Dean MD LAB MICROBIOLOGY - GENERAL O REIC Final Result Performing Organization Address City/[facility] de Phone Number HEALTHCARE LAB [address] [place] [address] * Bone Culture and Gram Stain (08/12/2022 [...] O RDERABLES Final Result Performing Organization Address City/[facility] de Phone Number [facility] [address] [place] [address] documented in this encounter Visit Diagnoses Diagnosis Encounter for general adult medical examination without abnormal findings documented in this encounter
--- OUTSIDE RECORDS SUMMARY | 2025-04-22 09:30 | XMS_ITS | Encounter Summary ---
Author Organization Healthcare Address [address] [place] [address] Care Team Providers Care Auto Body Man Name Role Phone Unavailable Primary Care Provider Unavailabl e Encounter Details Date Type Department Care Team (Late st Contact Info) Description 05/17/2023 Lab Requisition [facility] [address] [place] [address] Sushil Dean MD [address] [facility] [address] [place] [address] Encounter for general adult medical examination without [...] O RDERABLES Final Result Performing Organization Address City/[facility] Co de Phone Number [facility] [address] [place] [address] * Bone Culture and Gram Stain (05/17/2023 [...] RDERABLES Final Result Performing Organization Address [facility] Co de Phone Number [facility] [address] [place] [address] documented in this encounter Visit Diagnoses Diagnosis Encounter for general adult medical examination without abnormal findings documented in this encounter
--- OUTSIDE RECORDS SUMMARY | 2025-04-22 09:30 | XMS_ITS | Encounter Summary ---
Author Organization Healthcare Address [address] [place] [address] Care Team Providers Care Fishing Reel Assembler Name Role Phone Unavailable Primary Care Provider Unavailabl e Encounter Details Date Type Department Care Team (Late st Contact Info) Description 10/01/2022 Lab Requisition [facility] [address] [place] [address] Sushil Dean MD [address] [facility]. [address] [place] [address] Encounter for general adult medical examination without [...] has been identified using the FDA Approved Unique Microguidesyper CA System The organism value for this [...] 10/04/2022 2:17 PM EDT Refer to culture [id number] FOR SUSCEPTIBILITIES ON NEELIMA ALBICANS us Sushil Dean MD LAB MICROBIOLOGY - GENERAL O RDERABLES Final Result [facility] [address] [place] [address] documented in this encounter Visit Diagnoses Diagnosis Encounter for general adult medical examination without abnormal findings documented in this encounter
--- OUTSIDE RECORDS SUMMARY | 2025-04-22 09:30 | XMS_ITS | Clinical Summary ---
Author Organization Healthcare Address [address] [place] [address] Care Team Providers Care Destination Sign Repairer Name Role Phone Unavailable Primary Care [...]
--- OUTSIDE RECORDS SUMMARY | 2025-04-22 09:30 | XMS_ITS | Encounter Summary ---
Author Organization [facility] Address [address] [place] [address] Care Team Providers Care Corn Sheller Operator Name Role Phone Unavailable Primary Care Provider Unavailabl e Encounter Details Date Type Department Care Team (Late st Contact Info) Description 10/03/2022 Lab Requisition [facility] Lab [address] [place] [address] Dalila Cox MD [address] [place], [place] [id number] Encounter for general adult medical examination without [...] Culture Neelima albicans(A) 10/05/2022 11:58 AM EDT [facility] Comment: This result was determined by MALDI tof Mass spectrometry. This assay was developed and its performance characteristics determined by [facility] as appropriate for clinical purposes. [...] Edited Result - Final [facility] [address] [place] [address] documented in this encounter Visit Diagnoses Diagnosis Encounter for general adult medical examination without abnormal findings documented in this encounter
--- OUTSIDE RECORDS SUMMARY | 2025-04-22 09:30 | XMS_ITS | Encounter Summary ---
Author Organization Healthcare Address [address] [place] [address] Care Team Providers Care Clinical Engineering Director Name Role Phone Unavailable Primary Care Provider Unavailabl e Encounter Details Date Type Department Care Team (Late st Contact Info) Description 07/20/2022 Lab Requisition [facility] [address] [place] [address] Sushil Dean MD [address] [place] [address] Encounter for general adult medical examination without [...]
--- OUTSIDE RECORDS SUMMARY | 2025-04-22 09:30 | XMS_ITS | Encounter Summary ---
Author Organization [facility] Address [address] [place] [address] Care Team Providers Care Scanner Operator Name Role Phone Provider, No Known [...] 2:25 PM EDT Cherri Grimm RN * Mcmullen Suicide Severity Rating Scale (Screener/Recent Self-Report) Question [...] documented as of this encounter Care Teams Scanner Operator Relationship Specialty Start Date End Date Provider, No Known [facility] [place] [address] PCP - General 05/09/23 documented as of this encounter
--- OUTSIDE RECORDS SUMMARY | 2025-04-22 09:30 | XMS_ITS | Patient Health Record ---
[facility] [address] [facility] [address] [place] [id number] Care Team Providers Care Tube Cutter Operator Name Role Phone Zeeshan Salazar Primary [...] W/U Status Risk Notes Problem Essential hypertension (41369833) HTN [Hypertension] (401.9) Active confirmed appears resolved Problem Hypothyroidism (93094879) Hypothyroidism NOS (244.9) Active confirmed Problem Hyperlipidemia (67897986) Hyperlipidemia (272.4) Active confirmed Problem Constipation (47896725) Constipation, unspecified constipation type (K59.00) Active confirmed Problem History of pulmonary embolism on long-term anticoagulation therapy (70502552257699078 ) Hx pulmonary embolism (Z86.711) Active confirmed Problem Long-term current use of anticoagulant (503804093) 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.01) Active confirmed Problem Adjustment disorder with anxious mood (94107565) Adjustment disorder with anxious mood (F43.22) Active confirmed Problem History of pulmonary embolus (568073452) History of pulmonary embolus (PE) (Z86.711) Active confirmed Problem Methicillin resistant Staphylococcus aureus infection (disorder) (231831381) Infection of wound due to methicillin resistant Staphylococcus aureus (MRSA) (A49.02) Active confirmed Problem Arthritis of knee (694990163) Arthritis of knee (M17.10) Active confirmed Problem Amputated below knee (519629289) Status post below knee amputation of right lower extremity (Z89.511) Active confirmed Problem Gastroesophageal reflux disease (925190793) Gastroesophageal reflux disease, unspecified whether esophagitis present [...]
--- OUTSIDE RECORDS SUMMARY | 2025-04-22 09:30 | XMS_ITS | Encounter Summary ---
Author Organization Healthcare Address [address] [place] [address] Care Team Providers Care Electrical And Radio Aircraft Mechanic Name Role Phone Unavailable Primary Care Provider Unavailabl e Encounter Details Date Type Department Care Team (Late st Contact Info) Description 10/19/2022 Lab Requisition [facility] [address] [place] [address] Sushil Dean MD [address] [place] [address] Encounter for general adult medical examination without [...] by MALDI tof mass spectrometry using the [employer] database and is for research use only. The organism value for this result has been updated. These results have been appended to the previously preliminary verified report. Bone Specimen from bone / Unknown 10/19/2022 5:17 PM EDT 10/19/2022 9:49 PM EDT Sushil Dean MD LAB MICROBIOLOGY - GENERAL O RDERABLES Final Result Performing Organization Address [facility] de Phone Number [facility]ALTH[facility]ARE [facility] [address] [place] [address] * Bone Culture and Gram Stain (10/19/2022 5:17 PM EDT) Culture No growth at day 4 2022 8:14 AM EDT [facility] Gram Stain Result Few Polymorphonuclear leukocytes 10/23/2022 8:14 AM EDT [facility] Gram Stain Result No organisms seen 10/23/2022 8:14 AM EDT [facility] Bone Specimen from bone / Unknown 10/19/2022 5:17 PM EDT 10/19/2022 9:49 PM EDT Sushil Dean MD LAB MICROBIOLOGY - GENERAL O RDERAADDI Final Result Performing Organization Address [facility] Phone Number [facility] [address] [place] [address] documented in this encounter Visit Diagnoses Diagnosis Encounter for general adult medical examination without abnormal findings documented in this encounter
--- OUTSIDE RECORDS SUMMARY | 2025-04-22 09:30 | XMS_ITS | Encounter Summary ---
Author Organization Healthcare Address [address] [place] [address] Care Team Providers Care Biscuitware Brusher Name Role Phone Unavailable Primary Care Provider Unavailabl e Encounter Details Date Type Department Care Team (Late st Contact Info) Description 05/13/2023 Lab Requisition [facility] [address] [place] [address] Sushil Dean MD [address] [facility]. [address] [place] [address] Encounter for general adult medical examination without [...] O RDERABLES Final Result Performing Organization Address [facility] Co de Phone Number [facility] [address] [place] [address] * Anaerobic Culture (05/13/2023 9:17 AM EDT) Culture No growth at day 4 05/20/2023 10:35 AM EST [facility] Bone 05/13/2023 9:17 AM EDT 05/13/2023 1:25 PM EDT us Sushil Dean MD LAB MICROBIOLOGY - GENERAL O RDERABLES Final Result Performing Organization Address [facility] de Phone Number [facility] [address] [place] [address] * Bone Culture and Gram Stain (05/13/2023 [...] O RDERABLES Final Result Performing Organization Address [facility] de Phone Number [facility] [address] [place] [address] documented in this encounter Visit Diagnoses Diagnosis Encounter for general adult medical examination without abnormal findings documented in this encounter
--- OUTSIDE RECORDS SUMMARY | 2025-04-22 09:30 | XMS_ITS | Encounter Summary ---
Author Organization Healthcare Address [address] [place] [address] Care Team Providers Care Internal Communications Specialist Name Role Phone Unavailable Primary Care Provider Unavailabl e Encounter Details Date Type Department Care Team (Late st Contact Info) Description 07/20/2022 Lab Requisition [facility] [address] [place] [address] Sushil Dean MD [address] [place] [address] Encounter for general adult medical examination without [...] at day 4 07/27/2022 11:32 AM EST [facility] Bone Specimen from bone / Unknown 07/20/2022 1:36 PM EST 07/20/2022 5:52 PM EST us Sushil Dean MD LAB MICROBIOLOGY - GENERAL O RDERABLES Final Result Performing Organization Address City/[facility] Co de Phone Number [facility] [address] [place] [address] * Bone Culture and Gram Stain (07/20/2022 1:36 PM EST) Culture No growth at day 4 2022 9:16 AM EST [facility] Gram Stain Result Rare Polymorphonuclear leukocytes 07/24/2022 9:16 AM EST [facility] Gram Stain Result No organisms seen 07/24/2022 9:16 AM EST [facility] Bone Specimen from bone / Unknown 07/20/2022 1:36 PM EST 07/20/2022 5:52 PM EST us Sushil Dean MD LAB MICROBIOLOGY - GENERAL O RDERABLES Final Result Performing Organization Address City/[facility] Co de Phone Number [facility] [address] [place] [address] documented in this encounter Visit Diagnoses Diagnosis Encounter for general adult medical examination without abnormal findings documented in this encounter
[2025-04-22 09:38] VITALS: BP 119/70; PULSE 63; RESP 18; O2SAT 95
[2025-04-22 10:30] VITALS: BP 108/62; PULSE 68; RESP 18; O2SAT 95
== END 2025-04-22 23:59 | disposition home or self-care (01) ==
PROVIDERS: PCP Nurse Practitioner Family; Visit Provider Internal Medicine Infectious Disease
DX: L03.115 Cellulitis of right lower limb (principal); L02.415 Cutaneous abscess of right lower limb; Z89.511 Acquired absence of right leg below knee; D68.2 Hereditary deficiency of other clotting factors; I10 Essential (primary) hypertension; E78.5 Hyperlipidemia, unspecified; F39 Unspecified mood [affective] disorder
CPT/HCPCS: 96365; J0878

== ENCOUNTER → 2025-04-22 10:00 | Outpatient (RCR) | payer MEDICARE, SELFPAY ==
[2025-04-15 09:19] VITALS: BP 102/72; PULSE 77; RESP 18; TEMP 36.8; O2SAT 99
[2025-04-15] MEDS: SODIUM CHLORIDE 0.9% 10ML FLUSH SYRINGE 10 ML IV (10:24)
== END ==
LOC: INF 04-15 08:52
PROVIDERS: PCP Nurse Practitioner Family; Visit Provider Internal Medicine Infectious Disease
DX: T81.49XA Infection following a procedure, other surgical site, initial encounter (principal); L02.415 Cutaneous abscess of right lower limb; L03.115 Cellulitis of right lower limb; Z89.511 Acquired absence of right leg below knee
CPT/HCPCS: 96365; J0878

== ENCOUNTER 2025-04-23 09:17 | Outpatient (CLI) | payer MEDICARE, SELFPAY ==
--- OUTSIDE RECORDS SUMMARY | 2023-10-25 12:15 | XMS_ITS ---
[facility] Address [address] [place] [address] YVON Sykes [id number] Care Team Providers Care Sound Effects Manager Name Role Phone Zeeshan Salazar Primary Care Provider [phone] Macario Burkett [phone] Allergies No Known Allergies REASON FOR VISIT check up BP Encounters Encounter Location Date Provider Diagnosis [facility] [address] [place] [address] YVON Sykes [phone] 10/25/2023 Macario Burkett Plan Of Treatment No Information Progress Notes * MITCHELLWonDOB: [birth year] (44 yo M)Acc No.[id number]:10/25/2023 Progress Notes Patient: Won SPANN Provider: Colleen Burkett M.D. :1980 A ge:43 Y S ex:Male Date:10/25/2023 Address:[address] [place] [address] Onel THACKER [id number] Pcp:Zeeshan Salazar Subjective: * Chief Complaints: * [...] alive, hypertension. M aternal Grand Mother: HBP, [place]. Brother with HBP. * Social History: C URRENT TOBACCO USE S moking Status: Patient does NOT smoke. C affeine: no. Alcohol: No. * Allergies: N .K.D.A. Objective: * Vitals: Assessment: Plan: * Treatment: * Images: Billing Information: * Visit Code: * Procedure Codes: * Electronic signature of Micaela Burkett MD on 04/23/2025 at 09:29 AM EDT Sign off status: Pending * Provider: Colleen Burkett M.D. Date: 0 10/25/2023 Generated for Nany jorgensen/Elaine/Lisbethitting on: 1 09:29 AM EDT
--- OUTSIDE RECORDS SUMMARY | 2023-12-12 05:00 | XMS_ITS ---
Author Organization Ayaka Address 1210 [facility] 36 [facility] 2C [place] [phone] Care Team Providers Care Electric Distribution Checker Name Role Phone Zeeshan Salazar Primary Care Provider Macario Burkett [phone] REASON FOR VISIT 6 Month Check Up Encounters Encounter Location Date Provider Diagnosis [place] 1210 [facility] [address] [place] [phone] 12/12/2023 Macario Burkett Plan Of Treatment No Information Progress Notes * Won MEDRANO ZeeshanDOB: [birth year] (44 yo M)Acc No.[id number]:12/12/2023 Progress Notes Patient: Won SPANN Provider: Colleen Burkett M.D. :1980 A ge:43 Y S ex:Male Date:12/12/2023 Address:[address] [place] [address] On[id number] Pcp:Zeeshan Salazar Subjective: * Chief Complaints: * 1 . 6 Month Check Up. * Medical History: Objective: * Vitals: Assessment: Plan: * Treatment: * Images: Billing Information: * Visit Code: * Procedure Codes: * Electronic signature of Micaela Burkett MD on 04/23/2025 at 09:29 AM EDT Sign off status: Pending * Provider: Colleen Burkett M.D. Date: 12/12/2023 Generated for Nany jorgensen/Elaine/Pro on: 1 09:29 AM EDT
--- OUTSIDE RECORDS SUMMARY | 2025-04-04 16:10 | XMS_ITS | Encounter Summary ---
Author Organization [facility] Address [address] [place] [address] Care Team Providers Care Shipper Name Role Phone Provider, No Known Primary Care Provider Unavail able Reason for Visit * Reason Comments Leg Swelling * Auth/Cert Specialty Diagnoses / Procedures Referred By Contlevy t Referred To Contact Diagnoses Right BKA infection Referral ID Status Reason Start Date Expiration Date Visits Re quested Visits Authorized [id number] 1 1 Encounter Details Date Type Department Care Team (Late st Contact Info) Description 04/04/2025 4:10 PM EDT - 04/11/2025 1:58 PM EDT Hospital Encounter [address] [place] [address] Mario Crowley, [address] [place] [address] Leonora Shepherd MD [address] [address] aJson Álvarez DO [address] [address] Jadyn Richardson DO [address] [address] Cellulitis of right lower extremity (Primary Dx); Below-knee amputation of right lower extremity, initial encounter; Right BKA infection Discharge Disposition: Home or Self Care Social History Tobacco Use Types Packs/Day Years Used Date Smoking Tobacco: Never Smokeless Tobacco: Never Tobacco Cessation:Counseling Given: Not Answered Alcohol Use Standard Drinks/Week Comments Not Currently 0 (1 standard drink = 0.6 oz pur e alcohol) [facility] Utilities Answer Date Recorded In the past 12 months has th e [employer], gas, oil, or water company threatened to [...] or training? Not on file Preferred Language Kuwaiti 04/07/2025 Sex and Gender Information Value Date [...] 2:25 PM EDT Cherri Grimm RN * [place] Suicide Severity Rating Scale (Screener/Recent Self-Report) Question [...] from the original note were not included. Psychiatric Medicine Services DISCHARGE SUMMARY Patient Name: Won [...] Date/Time Wound Culture - Swab, Leg, Right [[id number]] (Abnormal) (Susceptibility) Collected: 04/07/252106 Lab Status: Final [...] Units Date/Time FL C Arm During Surgery [[id number]] Resulted: 04/07/252137 Updated: 04/07/252137 Narrative: This procedure was auto-finalized with no dictation required. MRI Tibia Fibula Right With & Without Contrast [[id number]] Collected: 04/07/25 0938 Updated: 04/07/25 1001 Narrative: [...] Buenrostro 04/07/2025 9:58 AM EDT Workstation ID: [id number] MRI Tibia Fibula Right With & Without Contrast [[id number]] Collected: 04/04/252256 Updated: 04/04/252302 Narrative: MRI TIBIA [...] represent a small area of phlegmonous change ([id number] image 10) measuring approximately 1.6 cm which [...] MD 04/04/2025 11:00 PM EDT Workstation ID: [id number] Pending Labs Order Current Status Fungus Culture [...] Stop These Medications [facility] Digestive [facility] capsule doxycycline 100 MG tablet [...] Male) Date of 1980 Social Security Number [id number] [place] [address] Restorationism Unknown Marital Status Unknown Admission Date 04/04/2025 Admission Type Emergency Admitting Provider Jadyn Richardson DO Attending Provider Jadyn Richardson DO Department, Room/Bed [address], S565/1 Discharge Date Discharge Disposition Discharge [...] Group [place] [id number] Payor Plan Address Payor Plan Phone Number Payor Plan Fax Number Effective Dates [employer] [address] [address] 08/10/2023 - None Entered [place] [address] Subscriber Name Subscriber Date Member ID WON DENNIS 1980 [id number] Emergency Contacts Java Android Developer (Rel.) Home Phone Work Phone Mobile Phone Avril Dennis (Spouse) -- -- [phone] LewRobert (Relative) -- -- [phone] [facility] [address] Patient: ROOM: [facility] Won Dennis [address] [facility] [place] [address] [facility] [address] : 1980 SSN: [id number] Sex: M PCP: Provider, No Known Emergency Contact Information Name Relation Home Work Mobile Avril Dennis Spouse [phone] Other Contacts Name Relation Home Work Mobile Robert Hackett Relative [phone] INSURANCE PAYOR PLAN GROUP # SUBSCRIBER ID Primary: Secondary: MEDICARE [employer]ICAID [place] [id number] Admitting Diagnosis: 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] Order Date: Apr 09, 2025 Case Management Principal Clerk Typist Consult (Order ID: [id number]) Diagnosis: Priority: Routine Expected Date: Expiration Date: Interval: Once Count: Comments: Outpatient orders: 1. Outpatient intravenous antibiotic therapy: Daptomycin 800 mg IV daily to be supplied by [facility] 2. Home health to perform [...] INFECTIOUS DISEASE Progress Note Won Dennis 1980 [id number] Date of Consult: 04/10/2025 Admission Date: 04/04/2025 [...] which prompted him to seek treatment at [facility]. He is known to Dr. [...] Jr., MD, 20 mg at 04/09/25906 heparin 05983 units/250 mL (100 units/mL) in 0.45 % [...] Units Date/Time FL C Arm During Surgery [[id number]] Resulted: 04/07/252137 Updated: 04/07/252137 Narrative: This procedure was auto-finalized with no dictation required. MRI Tibia Fibula Right With & Without Contrast [[id number]] Collected: 04/07/25 0938 Updated: 04/07/25 1001 Narrative: [...] Chitra 04/07/2025 9:58 AM EDT Workstation ID: [id number] Impression: Recurrent Right BKA stump abscess/cellulitis- this [...] discussed his disposition with the pharmacist at [facility] today. I will sign off Outpatient orders: 1. Outpatient intravenous antibiotic therapy: Daptomycin 800 mg IV daily to be supplied by [facility] 2. Home health to perform [...] Time: 04/10/251323 Signed Expand All Collapse All Psychiatric Medicine Services PROGRESS NOTE Patient Name: Won [...] Date/Time Wound Culture - Swab, Leg, Right [[id number]] (Abnormal) (Susceptibility) Collected: 04/07/252106 Lab Status: Final [...] Row Name 04/06/25 1143 Sit-Stand Transfer Sit-Stand Curry (Transfers) modified independence -LM Comment, (Sit-Stand Transfer) Pt stood from recliner. Not holding onto walker, pt able to pull his pants up while balancing on his one leg. -LM Row Name 04/06/25 1143 Gait/Stairs (Locomotion) Curry Level (Gait) modified independence -LM Distance in [...] Physical Therapy Education Title: PT OT SENIOR SOFTWARE SYSTEMS ENGINEER Therapies (Done) Topic: Physical Therapy (Done) [...] Description Service Date Service Provider Modifiers Qty [id number] PT EVAL LOW COMPLEXITY 3 04/06/2025 Susan [...] mg Daily 04/05/2025 -- Route: Oral heparin 89493 units/250 mL (100 units/mL) in 0.45 % [...] -- Admin Instructions: Open Order & Select [facility] Electrolyte Replacement Protocol Algorithm to View [...] Dean MD April 21 vs April 22 [facility] [address], [address] [facility], [address] Please schedule at [phone] VONDA Garcia 04/11/25 08:32 EDT Cosigned by Sushil Dean Jr., MD at 04/19/2025 10:33 AM EDT Associated attestation - Sushil Dean Jr., MD - 04/19/2025 10:33 AM EDT I have reviewed this documentation and agree. * Rosario Hill APRN - 04/10/2025 1:24 PM EDT Images from the original note were not included. Psychiatric Medicine Services PROGRESS NOTE Patient Name: Won [...] Date/Time Wound Culture - Swab, Leg, Right [[id number]] (Abnormal) (Susceptibility) Collected: 04/07/252106 Lab Status: Final [...] mg Daily 04/05/2025 -- Route: Oral heparin 97031 units/250 mL (100 units/mL) in 0.45 % [...] -- Admin Instructions: Open Order & Select [facility] Electrolyte Replacement Protocol Algorithm to View [...] -- Admin Instructions: Open Order & Select [facility] Electrolyte Replacement Protocol Algorithm to View [...] -- Admin Instructions: Open Order & Select [facility] Electrolyte Replacement Protocol Algorithm to View [...] Dean MD April 21 vs April 22 [facility] [address], [address] [facility], [address] Please schedule at [phone] VONDA Garcia 04/10/25 09:01 EDT Cosigned by Sushil Dean Jr., MD at 04/19/2025 10:33 AM EDT Associated attestation - Sushil Dean Jr., MD - 04/19/2025 10:33 AM EDT I have reviewed this documentation and agree. * Carlton Mead MD - 04/10/2025 7:38 AM EDT Images from the original note were not included. INFECTIOUS DISEASE Progress Note Won Dennis 1980 [id number] Date of Consult: 04/10/2025 Admission Date: 04/04/2025 [...] which prompted him to seek treatment at [facility]. He is known to Dr. [...] Jr., MD, 20 mg at 04/09/25906 heparin 47084 units/250 mL (100 units/mL) in 0.45 % [...] vancomycin 2750 mg/500 mL 0.9% NS IVPB ([facility]) Ordering Provider: Mario Crowley, DO 20 [...] Units Date/Time FL C Arm During Surgery [[id number]] Resulted: 04/07/252137 Updated: 04/07/252137 Narrative: This procedure was auto-finalized with no dictation required. MRI Tibia Fibula Right With & Without Contrast [[id number]] Collected: 04/07/25 0938 Updated: 04/07/25 1001 Narrative: [...] Buenrostro 04/07/2025 9:58 AM EDT Workstation ID: [id number] Impression: Recurrent Right BKA stump abscess/cellulitis- this [...] discussed his disposition with the pharmacist at [facility] today. I will sign off Outpatient orders: 1. Outpatient intravenous antibiotic therapy: Daptomycin 800 mg IV daily to be supplied by [facility] 2. Home health to perform [...] 0.35 18 -- -- 18 0600 04/11 ALDNE RN, pump verified Larisa Hamilton RPH 04/10/2025 07:17 EDT * Jason Álvarez DO - 04/09/2025 2:42 PM EDT Images from the original note were not included. Psychiatric Medicine Services PROGRESS NOTE Patient Name: Won [...] Date/Time Wound Culture - Swab, Leg, Right [[id number]] (Abnormal) Collected: 04/07/252106 Lab Status: Preliminary result [...] mg Daily 04/05/2025 -- Route: Oral heparin 60153 units/250 mL (100 units/mL) in 0.45 % [...] -- Admin Instructions: Open Order & Select [facility] Electrolyte Replacement Protocol Algorithm to View [...] -- Admin Instructions: Open Order & Select [facility] Electrolyte Replacement Protocol Algorithm to View [...] -- Admin Instructions: Open Order & Select [facility] Electrolyte Replacement Protocol Algorithm to View [...] in 2 weeks for incision check, radiographs [facility] [address], [address] [facility], [address] Please schedule at [phone] VONDA Garcia 04/09/25 09:18 EDT Cosigned by Sushil Dean Jr., MD at 04/19/2025 10:33 AM EDT Associated attestation - Sushil Dean Jr., MD - 04/19/2025 10:33 AM EDT I have reviewed this documentation and agree. * Carlton Mead MD - 04/09/2025 8:25 AM EDT Images from the original note were not included. INFECTIOUS DISEASE Progress Note Won Dennis 1980 [id number] Date of Consult: 04/09/2025 Admission Date: 04/04/2025 [...] which prompted him to seek treatment at [facility]. He is known to Dr. [...] MD, 20 mg at 04/08/25 0800 heparin 61016 units/250 mL (100 units/mL) in 0.45 % [...] capsule 250 mg, 250 mg, Oral, BID, Sushli Dean Jr., MD, 250 mg at 04/08/252006 [...] % 50 mL IVPB Ordering Provider: Sushil Dena Jr., MD 8 mg/kg ?? 98.8 kg [...] Units Date/Time FL C Arm During Surgery [[id number]] Resulted: 04/07/252137 Updated: 04/07/252137 Narrative: This procedure was auto-finalized with no dictation required. MRI Tibia Fibula Right With & Without Contrast [[id number]] Collected: 04/07/2538 Updated: 04/07/25 1001 Narrative: MRI [...] Buenrostro 04/07/2025 9:58 AM EDT Workstation ID: [id number] Impression: Recurrent Right BKA stump abscess/cellulitis- this [...] complex situation with Dr. Rubens Torres today-Dr. Torers will see him in infectious disease follow-up Outpatient orders: 1. Outpatient intravenous antibiotic therapy: Daptomycin 800 mg IV daily to be supplied by [facility] 2. Home health to perform [...] from the original note were not included. Psychiatric Medicine Services PROGRESS NOTE Patient Name: Won [...] Buenrostro 04/07/2025 9:58 AM EDT Workstation ID: [id number] I have personally reviewed the therapy plans: [...] -- Admin Instructions: Open Order & Select [facility] Electrolyte Replacement Protocol Algorithm to View [...] mg Daily 04/05/2025 -- Route: Oral heparin 09008 units/250 mL (100 units/mL) in 0.45 % [...] -- Admin Instructions: Open Order & Select [facility] Electrolyte Replacement Protocol Algorithm to View [...] -- Admin Instructions: Open Order & Select [facility] Electrolyte Replacement Protocol Algorithm to View [...] -- Admin Instructions: Open Order & Select [facility] Electrolyte Replacement Protocol Algorithm to View [...] INFECTIOUS DISEASE Progress Note Won Dennis 1980 [id number] Date of Consult: 04/08/2025 Admission Date: 04/04/2025 [...] which prompted him to seek treatment at [facility]. He is known to Dr. [...] Jr., MD, 20 mg at 04/07/25950 heparin 63560 units/250 mL (100 units/mL) in 0.45 % NaCl infusion, 18 Units/kg/hr, Intravenous, Titrated, Sushil Dean Jr., MD, Last Rate: 24.1 mL/hr at 04/07/252333, 18 Units/kg/hr at hydroCHLOROthiazide tablet 12.5 mg, 12.5 mg, Oral, Daily, Sushil Dean Jr., MD, 12.5 mg at 04/07/25950 HYDROmorphone (DILAUDID) injection 0.5 mg, 0.5 mg, Intravenous, Q2H PRN, Sushil Dena Jr., MD,0.5 mg at 04/08/25 06 HYDROmorphone [...] 100 mg, 100 mg, Oral, Nightly, Sushil eDan Jr., MD, 100 mg at 04/06/252101 [COMPLETED] [...] Units Date/Time FL C Arm During Surgery [[id number]] Resulted: 04/07/252137 Updated: 04/07/252137 Narrative: This procedure was auto-finalized with no dictation required. 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 (Treated by ID in [place] Dr[facility] Harris). Dr. Torres treated him with [...] from the original note were not included. Psychiatric Medicine Services PROGRESS NOTE Patient Name: Won [...] Buenrostro 04/07/2025 9:58 AM EDT Workstation ID: [id number] I have personally reviewed the therapy plans: [...] INFECTIOUS DISEASE Progress Note Won Dennis 1980 [id number] Date of Consult: 04/07/2025 Admission Date: 04/04/2025 [...] which prompted him to seek treatment at [facility]. He is known to Dr. [...] mg, 10 mg, Rectal, Daily PRN, Leonora Shehperd MD budesonide-formoterol (SYMBICORT) 160-4.5 MCG/ACT inhaler 2 [...] Application, 1 Application, Topical, Q12H, Ayah Valentin, TRANSPORT MEDIC, 1 Application at 04/06/252101 DAPTOmycin (CUBICIN) 800 [...] Shepherd MD, 20 mg at 04/06/25899 heparin 80043 units/250 mL (100 units/mL) in 0.45 % [...] With & Without Contrast - In process [[id number]] Resulted: 04/07/25828 Updated: 04/07/25828 This result has not been signed. Information might be incomplete. 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 (Treated by ID in [place] [facility] Harris). Dr. Torres treated him with [...] mg Daily 04/05/2025 -- Route: Oral heparin 30131 units/250 mL (100 units/mL) in 0.45 % [...] -- Admin Instructions: Open Order & Select [facility] Electrolyte Replacement Protocol Algorithm to View [...] -- Admin Instructions: Open Order & Select [facility] Electrolyte Replacement Protocol Algorithm to View [...] from the original note were not included. Psychiatric Medicine Services PROGRESS NOTE Patient Name: Won [...] MD 04/04/2025 11:00 PM EDT Workstation ID: [id number] I have personally reviewed the therapy plans: [...] mg Daily 04/05/2025 -- Route: Oral heparin 77104 units/250 mL (100 units/mL) in 0.45 % [...] -- Admin Instructions: Open Order & Select [facility] Electrolyte Replacement Protocol Algorithm to View [...] INFECTIOUS DISEASE follow up. Won Dennis 1980 [id number] Date of Consult: 04/06/2025 Admission Date: 04/04/2025 [...] which prompted him to seek treatment at [facility]. He is known to Dr. 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 (Treated by ID in [place] [facility] Harris). Dr. Torres treated him with [...] from the original note were not included. Psychiatric Medicine Services PROGRESS NOTE Patient Name: Won [...] MD 04/04/2025 11:00 PM EDT Workstation ID: [id number] I have personally reviewed the therapy plans: [...] from the original note were not included. Psychiatric Medicine Services HISTORY AND PHYSICAL Patient Name: [...] MD 04/04/2025 11:00 PM EDT Workstation ID: [id number] Assessment & Plan Assessment & Plan Won [...] EDTAssociated Order(s): IP CONSULT TO ORTHOPEDIC SURGERY [facility], [facility] [address] [place] [address] Orthopedic Consult Patient: Won Dennis Date of Admission: 04/04/2025 4:10 PM Date of : 1980 Attending Physician: Jason Álvarez DO Consulting Physician: Sushil Dean Jr, MD Chief Complaint: 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 male admitted to [facility] with 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]. He has [...] was evaluated in the emergency department in [place], was discharged with instructions for follow-up. He [...] Daily. 04/03/2025 Morning Lactobacillus-Inulin ([facility] BTIG) capsule Take 200 mg by mouth Daily. [...] MD 04/04/2025 11:00 PM EDT Workstation ID: [id number] Assessment: Right BKA infection 44-year-old male with [...] DISEASE CONSULT/INITIAL HOSPITAL VISIT Won Dennis 1980 [id number] Date of Consult: 04/05/2025 Admission Date: 04/04/2025 [...] which prompted him to seek treatment at [facility]. He is known to Dr. 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 (Treated by ID in [place] [facility] Harris). Dr. Torres treated him with [...] Jr., MD - 04/08/2025 3:51 PM EDT [facility] OPERATIVE REPORT PATIENT NAME: Won Dennis DATE OF : 1980 PREOP DIAGNOSIS: Right Right below-knee amputation infection POSTOP DIAGNOSIS: Same. PROCEDURE: Right Right 20825: Secondary closure below-knee amputation SURGEON: Sushil Dean MD OPERATIVE TEAM: Senior Lead Java Developer: Susi Grullon RN Scrub Person: Mary Paredes Scrub Person Extra: Hortencia Toribio Other: Katt Gotti RN; Charis Neville RN ANESTHETIST: Anesthesiologist: Ulises Hoffman MD AGILE QA TESTER: Stan Casillas CRNA Student Nurse [employer] Advisor: Karol Albret SRNA ANESTHESIA: Choice ESTIMATED BLOOD LOSS: @OREBL@ ml TOURNIQUET TIME: Not utilized. FINDINGS: Remaining tissue appeared healthy. Tension-free wound closure. No overt signs or symptomsof infection in the residual limb. IMPLANTS: None SPECIMENS: Specimens ID Source Type Tests Collected By Collected At Frozen? 1 Leg, Right Swab ANAEROBIC CULTURE FUNGAL CULTURE (Canceled) WOUND CULTURE AFB CULTURE (Canceled) Sushil Dean Jr., MD 04/08/25 5625 Description: RIGHT LEG DEEP WOUND FOR CULTURE [...] Jr., MD - 04/07/2025 9:03 PM EDT [facility], [facility] [address] [address] OPERATIVE REPORT PATIENT NAME: Won Dennis DATE OF : 1980 PREOP DIAGNOSIS: Right Right below knee amputation stump infection POSTOP DIAGNOSIS: Same. PROCEDURE: Right Right 07519: Incision and drainage of surgical site infection 96866: Debridement of skin, subcutaneous tissue, muscle 86529: Wound vacuum-assisted closure SURGEON: Sushil Dean MD OPERATIVE TEAM: Senior Lead Java Developer: Anum Sanchez RN Scrub Person: Hortencia Toribio; Gerald Ivey INSPECTOR EXHAUST EMISSIONS: Anesthesiologist: Luci Alonso DO ANESTHESIA: General ESTIMATED [...] ago swellling of the area. seen at [facility] yesterday for CT and US, [...] this chart in the absence of a flat breakdown processor. No orders to display RADIOLOGY: [x] Radiologist's [...] 04/11/2025 1:30 PM EDT Continued Stay Note [place] Patient Name: Won Dennis Today's Date: 04/11/2025 [...] changes. DEBRA has spoke with Dena at [facility] today multiple times to get [...] to get IV ABX at home with [facility]; however, Medicaid lapsed on 04/08. DEBRA was unaware until this morning that Medicaid has lapsed. Patient explained that he has Medicare A and B. CM spoke with KELLEE and given themhis Medicare number [id number], she sent it to Admission. DEBRA spoke with Kerri, with [facility], and explained that he had Medicare A and B. However, it will not cover home infusion. It will be $64.00 a day out of packet. Patients can go to the Infusion center at [facility], and it will cover the [...] over to [facility] at [phone]. CM will follow up with them tomorrow [...] with patient at bedside today. [facility] Patient getting PICC line [...] note were not included. Discharge Planning Assessment [place] Patient Name: Won Dennis Today's Date: 04/07/2025 [...] family Patient/Family Anticipated Services at Transition telephonic nurse case managerwater resource manager Anticipated family or friend will provide Discharge Needs Assessment Equipment Currently Used at Home glucometer;shower chair;pulse ox;bp cuff;prosthesis;crutches Equipment Needed After Discharge none Discharge Plan Row Name 04/07/25 1144 Plan Plan Home Patient/Family in Agreement with Plan yes Plan Comments CM spoke with patient at bedside today. Patient lives with and his 5 kids in [facility]. 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 He has walker, cane, shower chair, and crutches. He requested a wheelchair for home. CM will order wheelchair through [facility]. He is not current with home health services. PCP is Dr. Jordan. Insurance is [facility] Medicaid [place]. Patient discharge plan is home with priavte transport. CM will follow for any discharge needs. Final Discharge Disposition Code 01 - home or self-care Continued Care and Services - Admitted Since 04/04/2025 No active coordination exists. Demographic Summary Row Name 04/07/25 1143 General Information Arrived From hospital Preferred Language Kuwaiti Functional Status Row Name 04/07/25 1143 Functional [...] 3:4 0 PM EDT Right BKA infection NE SEC ABDOMINAL WALL SUTURE EVISCERATION/DEHSN 04/08/2025 3:20 [...] CBC Auto Differential (04/11/2025 3:40 AM EDT) [facility] WBC 7.87 3.40 - 10.80 10*3/mm3 [...] Fi nal Result [facility]
[address] [place] [address], * (ABNORMAL) Comprehensive Metabolic Panel (04/11/2025 3:40 [...] 3:40 AM EDT 04/11/2025 3:56 AM EDT [facility] - 04/11/2025 4:19 AM EDT [...] ORDERABLES Final Result [facility]
[address] [place], [place] [address], * (ABNORMAL) CBC Auto Differential (04/10/2025 3:46 AM EDT) [facility] WBC 9.60 3.40 - 10.80 10*3/mm3 04/10/2025 3:56 AM EDT [facility] RBC 4.67 4.14 - 5.80 10*6/mm3 04/10/2025 3:[facility] Hemoglobin 12.9(L) 13.0 - 17.7 g/dL 04/10/2025 3:56 AM EDT [facility] Hematocrit 40.1 37.5 - 51.0 % 04/10/2025 3:56 AM [facility] MCV 85.9 79.0 - 97.0 fL 04/10/2025 3:56 AM [facility] MCH 27.6 26.6 - 33.0 pg 04/10/2025 3:56 AM [facility] MCHC 32.2 31.5 - 35.7 g/dL 04/10/2025 3:56 AM [facility] RDW 12.9 12.3 - [...] 42.7 - 76.0 % 04/10/2025 3:56 AM [facility] Lymphocyte % 29.0 19.6 - 45.3 % 04/10/2025 3:56 AM [facility] Monocyte % 8.1 5.0 - 12.0 % 04/10/2025 3:56 AM [facility] Eosinophil % 3.2 0.3 [...] Final Resul t [facility]
[address] [place] [address], * (ABNORMAL) Basic Metabolic Panel (04/10/2025 3:46 AM EDT) [facility] Glucose 125(H) 65 - 99 mg/dL [...] 3:46 AM EDT 04/10/2025 3:52 AM EDT [facility] - 04/10/2025 4:20 AM EDT [...] Final Resul t [facility]
[address] [place] [address], * Heparin Anti-Xa (04/10/2025 3:46 AM EDT) Heparin Anti-Xa (UFH) 0.35 0.30 - 0.70 IU/ml 04/10/2025 4:23 AM EDT [facility] Blood Venipuncture / Unknown 04/10/2025 3:46 AM EDT 04/10/2025 3:53 AM EDT [facility] LAB BLOOD ORDERABLES Final R esult Performing Organization Address City/[facility]/ZIP Co de Phone Number [facility]
[address] [place] [address], * Heparin Anti-Xa (04/09/2025 10:05 AM EDT) Heparin Anti-Xa (UFH) 0.36 0.30 - 0.70 IU/ml 04/09/2025 11:12 AM EDT [facility] Blood Venipuncture / Unknown 04/09/2025 10:05 AM EDT 04/09/2025 10:47 AM EDT [facility] LAB BLOOD ORDERABLES Final R esult [facility]
[address] [place] [address], * (ABNORMAL) CBC Auto Differential (04/09/2025 4:18 [...] 26.6 - 33.0 pg 04/09/2025 4:50 AM [facility] MCHC 32.2 31.5 - 35.7 g/dL 04/09/2025 4:50 AM [facility] RDW 12.8 12.3 - 15.4 % 04/09/2025 4:50 AM [facility] RDW-SD 39.9 37.0 - 54.0 fl 04/09/2025 4:50 AM [facility] MPV 10.0 6.0 - 12.0 fL 04/09/2025 4:50 AM [facility] Platelets 211 140 - 450 10*3/mm3 04/09/2025 4:50 AM [facility] Neutrophil % 74.8 42.7 - 76.0 % 04/09/2025 4:50 AM EDT [facility] Lymphocyte % 15.4(L) 19.6 - 45.3 % 04/09/2025 4:50 AM EDT [facility] Monocyte % 8.5 5.0 - 12.0 % 04/09/2025 4:50 AM EDT [facility] Eosinophil % 0.6 0.3 - 6.2 % 04/09/2025 4:50 AM [facility] Basophil % 0.4 0.0 [...] Fi nal Result [facility]
[address] [place] [address], * Heparin Anti-Xa (04/09/2025 4:18 AM EDT) Heparin Anti-Xa (UFH) 0.41 0.30 - 0.70 IU/ml 04/09/2025 4:53 AM EDT [facility] Blood Venipuncture / Unknown 04/09/2025 4:18 AM EDT 04/09/2025 4:31 AM EDT Una Wheeleroy PharmD LAB BLOOD ORDERABLES Final R esult [facility]
[address] [place] [address], * (ABNORMAL) Basic Metabolic Panel (04/09/2025 4:18 [...] ORDERABLES Fi nal Result Performing Organization Address [facility] Co de Phone Number [facility]
[address] [place] [address], * Wound Culture - Swab, Leg, Right (04/08/2025 3:40 PM EDT) Wound Culture No growth at 3 days ALIZA 04/11/2025 10:40 AM EDT [facility] Gram Stain Few (2+) WBCs seen 04/11/2025 10:40 AM EDT [facility] Gram Stain No organisms seen 04/11/2025 10:40 AM EDT [facility] Swab Structure of right lower limb / Unknown 04/08/2025 3:40 PM EDT 04/08/2025 8:05 PM EDT Sushil Dean Jr., MD MICROBIOLOGY - GENERAL ORDERABLES Final Result Performing Organization Address City/[facility]/ZIP Co de Phone Number [facility]
[address] [place] [phone], [facility]
[address] [place] [address], * Anaerobic Culture - Swab, Leg, Right (04/08/2025 3:40 PM EDT) Pathologist [facility] Anaerobic Culture No anaerobes isolated at 5 days ALIZA 04/13/2025 7:24 AM EDT [facility] Swab Structure of right lower limb / Unknown 04/08/2025 3:40 PM EDT 04/08/2025 8:05 PM EDT Sushil Dean Jr., MD MICROBIOLOGY - GENERAL ORDERABLES Final Result Performing Organization Address City/[facility] Co de Phone Number [facility]
[address] [place] [address], [place] [phone] * Scan Slide (04/08/2025 8:41 AM EDT) [...] ORDERABLES Final R esult Performing Organization Address City/[facility]/ZIP Co de Phone Number [facility]
[address] [place] [address], [place] [phone] * (ABNORMAL) CBC Auto Differential (04/08/2025 8:41 [...] Final R esult [facility]
[address] [place] [address], * (ABNORMAL) Basic Metabolic Panel (04/08/2025 8:41 [...] 8:41 AM EDT 04/08/2025 9:09 AM EDT [facility] - 04/08/2025 9:51 AM EDT [...] ORDERABLES nal Result [facility]
[address] [place] [address], * Heparin Anti-Xa (04/08/2025 8:41 AM EDT) Heparin Anti-Xa (UFH) 0.33 0.30 - 0.70 IU/ml 04/08/2025 9:40 AM EDT [facility] Blood Venipuncture / Unknown 04/08/2025 8:41 AM EDT 04/08/2025 9:10 AM EDT Sushil Dean Jr., MD LAB BLOOD ORDERABLES Fi nal Result [facility]
[address] [place] [address], * FL C Arm During Surgery (04/07/2025 9:32 PM EDT) Narrative SYSTEMGENERATED, DOCUMENTATION - 04/07/2025 9:38 PM EDT This procedure was auto-finalized with no dictation required. Sushil Dean Jr., MD IMG FLUOROSCOPY ORDERAB LES Final Result * Wound Culture - Swab, Leg, Right (04/07/2025 9:14 PM EDT) Wound Culture No growth at 3 days ALIZA 04/11/2025 10:40 AM EDT [facility] Gram Stain Occasional WBCs seen 04/11/2025 10:40 AM EDT [facility] Gram Stain No organisms seen 04/11/2025 10:40 AM EDT [facility] Swab Structure of right lower limb / Unknown Collection / Unknown 04/07/2025 9:14 PM EDT 04/08/2025 4:36 AM EDT Sushil Dean Jr., MD MICROBIOLOGY - GENERAL ORDERABLES Final Result [facility]
[address] [place] [address], [facility]
[address] [place] [address], * Anaerobic Culture - Swab, Leg, Right (04/07/2025 9:14 PM EDT) Anaerobic Culture No anaerobes isolated at 5 days ALIZA 04/13/2025 7:21 AM EDT [facility] Swab Structure of right lower limb / Unknown Collection / Unknown 04/07/2025 9:14 PM EDT 04/08/2025 4:36 AM EDT Sushil Dean Jr., MD MICROBIOLOGY - GENERAL ORDERABLES Final Result Performing Organization Address City/[facility]/ZIP Co de Phone Number [facility]
[address] [place] [address], * Anaerobic Culture - Tissue, Leg (04/07/2025 9:13 PM EDT) Anaerobic Culture No anaerobes isolated at 5 days ALIZA 04/13/2025 7:21 AM EDT [facility] Tissue Lower limb structure / Unknown Collection / Unknown 04/07/2025 9:13 PM EDT 04/08/2025 4:54 AM EDT Jason Álvarez DO MICROBIOLOGY - GENERAL ORDERABLE S Final Result [facility]
[address] [place] [address], * Tissue / Bone Culture - Tissue, Leg, Right (04/07/2025 9:13 PM EDT) Tissue Culture No growth at 3 days ALIZA 04/11/2025 10:36 AM EDT [facility] Gram Stain Rare (1+) WBCs seen 04/11/2025 10:36 AM EDT [facility] Gram Stain No organisms seen 04/11/2025 10:36 AM EDT [facility] Tissue Structure of right lower limb / Unknown 04/07/2025 9:13 PM EDT 04/08/2025 4:54 AM EDT Sushil Dean Jr., MD MICROBIOLOGY - GENERAL ORDERABLES Final Result Performing Organization Address City/[facility]/ZIP Co de Phone Number [facility]
[address] [place] [address], [place] [phone] [facility]
[address] [place] [address], [place] [phone] * (ABNORMAL) Wound Culture - Swab, Leg, Right (04/07/2025 9:07 PM EDT) Wound Culture Light growth (2+) Staphylococcus aureus, MRSA(A) ALIZA 04/10/2025 10:38 AM EDT [facility] Comment: Methicillin resistant Staphylococcus aureus, [...] MD MICROBIOLOGY - GENERAL ORDERABLES Final Result [facility]
[address] [place] [address], [facility]
[address] [place] [address], * Anaerobic Culture - Swab, Leg, Right (04/07/2025 9:07 PM EDT) Pathologist [facility] Anaerobic Culture No anaerobes isolated at 5 days ALIZA 04/13/2025 7:21 AM EDT [facility] Swab Structure of right lower limb / Unknown Collection / Unknown 04/07/2025 9:07 PM EDT 04/08/2025 4:36 AM EDT Sushil Dean Jr., MD MICROBIOLOGY - GENERAL ORDERABLES Final Result Performing Organization Address [facility] Co de Phone Number [facility]
[address] [place] [address], * Heparin Anti-Xa (04/07/2025 9:10 AM EDT) [facility] Heparin Anti-Xa (UFH) 0.30 0.30 - 0.70 IU/ml 04/07/2025 10:12 AM EDT [facility] Blood Venipuncture / Unknown 04/07/2025 9:10 AM EDT 04/07/2025 9:38 AM EDT Una LundbergD LAB BLOOD ORDERABLES Final R esult Performing Organization Address City/[facility]/ZIP Co de Phone Number [facility]
[address] [place] [address], * (ABNORMAL) CBC Auto Differential (04/07/2025 9:10 AM EDT) Pathologist [facility] WBC 8.63 3.40 - 10.80 10*3/mm3 04/07/2025 9:50 AM EDT [facility] RBC 5.23 4.14 - 5.80 10*6/mm3 04/07/2025 9:50 AM [facility] Hemoglobin 14.7 13.0 - 17.7 g/dL 04/07/2025 9:50 AM [facility] Hematocrit 44.8 37.5 - 51.0 % 04/07/2025 9:50 AM [facility] MCV 85.7 79.0 - 97.0 fL 04/07/2025 9:50 AM EDT [facility] MCH 28.1 26.6 - 33.0 pg 04/07/2025 9:50 AM [facility] MCHC 32.8 31.5 - 35.7 g/dL 04/07/2025 9:50 AM [facility] RDW 12.8 12.3 - 15.4 % 04/07/2025 9:50 AM [facility] RDW-SD 39.9 37.0 - 54.0 fl 04/07/2025 9:50 AM [facility] MPV 10.8 6.0 - 12.0 fL 04/07/2025 9:50 AM [facility] Platelets 149 140 - 450 10*3/mm3 04/07/2025 9:50 AM [facility] Neutrophil % 66.7 42.7 - 76.0 % 04/07/2025 9:50 AM [facility] Lymphocyte % 20.5 19.6 - 45.3 % 04/07/2025 9:50 AM EDT [facility] Monocyte % 9.8 5.0 - 12.0 % 04/07/2025 9:50 AM [facility] Eosinophil % 2.1 0.3 - 6.2 % 04/07/2025 9:50 AM [facility] Basophil % 0.3 0.0 - 1.5 % 04/07/2025 9:50 AM [facility] Immature Grans % 0.6(H) [...] Final Resul t [facility]
[address] [place] [address], * (ABNORMAL) Basic Metabolic Panel (04/07/2025 9:10 [...] Final Resul t [facility]
[address] [place] [address], * MRI Tibia Fibula Right With & [...] [place] 04/07/2025 9:58 AM EDT Workstation ID: [id number] Narrative 04/07/2025 9:58 AM EDT MRI TIBIA [...] [place] 04/07/2025 9:58 AM EDT Workstation ID: [id number] us Sushil Dean Jr., MD [facility] MRI ORDERABLES Mary Beth l Result * Heparin Anti-Xa (04/07/2025 1:42 AM EDT) Heparin Anti-Xa (UFH) 0.38 0.30 - 0.70 IU/ml 04/07/2025 2:14 AM EDT [facility] Blood Venipuncture / Unknown 04/07/2025 1:42 AM EDT 04/07/2025 1:54 AM EDT Chelsie Navarretesapna [facility] LAB BLOOD ORDERABLES Final R esult Performing Organization Address City/[facility]/ZIP Co de Phone Number [facility]
[address] [place] [address], * Heparin Anti-Xa (04/06/2025 7:16 PM EDT) Pathologist [facility] Heparin Anti-Xa (UFH) 0.33 0.30 - 0.70 IU/ml 04/06/2025 7:50 PM EDT [facility] Blood Venipuncture / Unknown 04/06/2025 7:16 PM EDT 04/06/2025 7:35 PM EDT Cherri Beatty [facility] LAB BLOOD ORDERABLES Final Res ult Performing Organization Address City/[facility] Co de Phone Number [facility]
[address] [place] [address], * Potassium (04/06/2025 7:16 PM EDT) Pathologist [facility] Potassium 4.0 3.5 - 5.2 mmol/L 04/06/2025 7:53 PM EDT [facility] Blood Venipuncture / Unknown 04/06/2025 7:16 PM EDT 04/06/2025 7:35 PM EDT Jason Álvarez DO LAB BLOOD ORDERABLES Final Resul t Performing Organization Address City/[facility]/ZIP Co de Phone Number [facility]
[address] [place] [address], * (ABNORMAL) Heparin Anti-Xa (04/06/2025 12:36 PM EDT) Heparin Anti-Xa (UFH) 0.24(L) 0.30 - 0.70 IU/ml 04/06/2025 1:23 PM EDT [facility] Blood Venipuncture / Unknown 04/06/2025 12:36 PM EDT 04/06/2025 1:07 PM EDT Una LundbergD LAB BLOOD ORDERABLES Final R esult [facility]
[address] [place] [address], * (ABNORMAL) Heparin Anti-Xa (04/06/2025 3:42 AM EDT) [facility] Heparin Anti-Xa (UFH) 0.25(L) 0.30 - 0.70 IU/ml 04/06/2025 5:30 AM EDT [facility] Blood Venipuncture / Unknown 04/06/2025 3:42 AM EDT 04/06/2025 4:59 AM EDT Chelsie Turpin [facility] LAB BLOOD ORDERABLES Final R esult [facility]
[address] [place] [address], * (ABNORMAL) Basic Metabolic Panel (04/06/2025 3:42 AM EDT) [facility] Glucose 94 65 - 99 mg/dL [...] Final Resul t [facility]
[address] [place] [address], * (ABNORMAL) CBC Auto Differential (04/06/2025 3:41 [...] Final Resul t [facility]
[address] [place] [address], * Heparin Anti-Xa (04/05/2025 8:43 PM EDT) Heparin Anti-Xa (UFH) 0.38 0.30 - 0.70 IU/ml 04/05/2025 9:09 PM EDT [facility] Blood Venipuncture / Unknown 04/05/2025 8:43 PM EDT 04/05/2025 8:55 PM EDT Cherri Beatty [facility] LAB BLOOD ORDERABLES Final Res ult Performing Organization Address [facility] Co de Phone Number [facility]
[address] [place] [address], * CK (04/05/2025 12:15 PM EDT) Creatine Kinase 140 20 - 200 U/L 04/05/2025 1:31 PM EDT [facility] Blood Venipuncture / Unknown 04/05/2025 12:15 PM EDT 04/05/2025 1:03 PM EDT Carlton Mead MD LAB BLOOD ORDERABLES Final R esult Performing Organization Address [facility] Co de Phone Number [facility]
[address] [place] [address], [place] [phone] * (ABNORMAL) Heparin Anti-Xa (04/05/2025 12:15 PM EDT) Heparin Anti-Xa (UFH) 0.17(L) 0.30 - 0.70 IU/ml 04/05/2025 1:21 PM EDT [facility] Blood Venipuncture / Unknown 04/05/2025 12:15 PM EDT 04/05/2025 1:04 PM EDT Una LundbergD LAB BLOOD ORDERABLES Final R esult Performing Organization Address City/[facility]/ZIP Co de Phone Number [facility]
[address] [place] [address], * (ABNORMAL) aPTT (04/05/2025 3:54 AM EDT) [facility] PTT 35.3(L) 60.0 - 90.0 seconds 04/05/2025 4:31 AM EDT [facility] Blood Venipuncture / Unknown 04/05/2025 3:54 AM EDT 04/05/2025 4:15 AM EDT Narrative [facility] - 04/05/2025 4:31 AM EDT PTT = The equivalent PTT values for the therapeutic range of heparin levels at 0.3 to 0.5 U/ml are 60 to 70 seconds. Una Perla Content RamenD LAB BLOOD ORDERABLES Final R esult Performing Organization Address [facility] Co de Phone Number [facility]
[address] [place] [address], * Heparin Anti-Xa (04/05/2025 3:54 AM EDT) [facility] Heparin Anti-Xa (UFH) 0.30 0.30 - 0.70 IU/ml 04/05/2025 4:32 AM EDT [facility] Blood Venipuncture / Unknown 04/05/2025 3:54 AM EDT 04/05/2025 4:15 AM EDT [employer] Banc[employer]D LAB BLOOD ORDERABLES Final R esult Performing Organization Address City/[facility] Co de Phone Number [facility]
[address] [place] [address], * (ABNORMAL) CBC Auto Differential (04/05/2025 3:54 AM EDT) [facility] WBC 11.18(H) 3.40 - 10.80 10*3/mm3 [...] 26.6 - 33.0 pg 04/05/2025 4:20 AM [facility] MCHC 32.8 31.5 - [...] 42.7 - 76.0 % 04/05/2025 4:20 AM [facility] Lymphocyte % 14.0(L) 19.6 - 45.3 % 04/05/2025 4:20 AM EDT [facility] Monocyte % 11.0 5.0 - 12.0 % 04/05/2025 4:20 AM [facility] Eosinophil % 0.8 0.3 - 6.2 % 04/05/2025 4:20 AM [facility] Basophil % 0.3 0.0 [...] Final R esult [facility]
[address] [place] [address], * (ABNORMAL) Basic Metabolic Panel (04/05/2025 3:54 AM EDT) [facility] Signature Glucose 152(H) 65 - 99 [...] 3:54 AM EDT 04/05/2025 4:15 AM EDT [facility] - 04/05/2025 4:40 AM EDT [...] ORDERABLES Final Re sult Performing Organization Address [facility] Co de Phone Number [facility]
[address] [place] [address], * (ABNORMAL) aPTT (04/05/2025 12:18 AM EDT) [...] ORDERABLES Final R esult Performing Organization Address [facility] Co de Phone Number [facility]
[address] [place] [address], [place] [phone] * (ABNORMAL) Protime-INR (04/05/2025 12:18 AM EDT) Protime 15.9(H) 12.2 - 15.3 Seconds 04/05/2025 12:53 AM EDT [facility] INR 1.19(H) 0.89 - 1.12 04/05/2025 12:53 AM EDT [facility] Blood Venipuncture / Unknown 04/05/2025 12:18 AM EDT 04/05/2025 12:37 AM EDT Una Perla PharmD LAB BLOOD ORDERABLES Final R esult Performing Organization Address City/[facility] Co de Phone Number [facility]
[address] [place] [address], [place] [phone] * Heparin Anti-Xa (04/05/2025 12:18 AM EDT) Heparin Anti-Xa (UFH) 0.39 0.30 - 0.70 IU/ml 04/05/2025 12:54 AM EDT [facility] Blood Venipuncture / Unknown 04/05/2025 12:18 AM EDT 04/05/2025 12:37 AM EDT Una Perla PharmD LAB BLOOD ORDERABLES Final R esult [facility]
[address] [place] [address], * MRI Tibia Fibula Right With & [...] MD 04/04/2025 11:00 PM EDT Workstation ID: [id number] Narrative 04/04/2025 11:00 PM EDT MRI TIBIA [...] MD 04/04/2025 11:00 PM EDT Workstation ID: [id number] us Leonora Shepherd MD IMG MRI ORDERABLES Final Resu lt * POC Creatinine (04/04/2025 2:49 PM EDT) [facility] Creatinine 1.10 0.60 - 1.30 mg/dL 04/07/2025 7:14 PM EDT [facility] Comment:Serial Number: [id number] Venous Blood 04/04/2025 2:49 PM EDT 04/07/2025 7:14 PM EDT Jason Álvarez DO POINT OF CARE TEST ORDERABLES Fi nal Result [facility]
[address] [place] [address], * (ABNORMAL) CBC Auto Differential (04/04/2025 2:47 PM EDT) [facility] WBC 12.72(H) 3.40 - 10.80 10*3/mm3 [...] 12.3 - 15.4 % 04/04/2025 2:56 PM [facility] RDW-SD 40.3 37.0 - [...] 19.6 - 45.3 % 04/04/2025 2:56 PM [facility] Monocyte % 11.2 5.0 - 12.0 % 04/04/2025 2:56 PM [facility] Eosinophil % 0.4 0.3 - 6.2 % 04/04/2025 2:56 PM EDT [facility] Basophil % 0.2 0.0 - 1.5 % 04/04/2025 2:56 PM [facility] Immature Grans % 0.2 0.0 - 0.5 % 04/04/2025 2:56 PM [facility] Neutrophils, Absolute 9.52(H) 1.70 - 7.00 10*3/mm3 04/04/2025 2:56 PM [facility] Lymphocytes, Absolute 1.66 0.70 - 3.10 10*3/mm3 04/04/2025 2:56 PM EDT [facility] Monocytes, Absolute 1.43(H) 0.10 - 0.90 10*3/mm3 04/04/2025 2:56 PM EDT [facility] Eosinophils, Absolute 0.05 0.00 - 0.40 10*3/mm3 04/04/2025 2:56 PM [facility] Basophils, Absolute 0.03 0.00 - 0.20 10*3/mm3 04/04/2025 2:56 PM EDT [facility] Immature Grans, Absolute 0.03 0.00 - 0.05 10*3/mm3 04/04/2025 2:56 PM EDT [facility] nRBC 0.0 0.0 - 0.2 /100 WBC 04/04/2025 2:56 PM EDT [facility] Blood Venipuncture / Unknown 04/04/2025 2:47 PM EDT 04/04/2025 2:52 PM EDT Mario Ortiz GhanshyamAdjug LAB BLOOD ORDERABLES Fin al Result Performing Organization Address City/[facility]/ZIP Co de Phone Number [facility]
[address] [place] [address], * (ABNORMAL) C-reactive Protein (04/04/2025 2:47 PM EDT) C-Reactive Protein 8.57(H) 0.00 - 0.50 mg/dL 04/04/2025 3:26 PM EDT [facility] Blood Venipuncture / Unknown 04/04/2025 2:47 PM EDT 04/04/2025 2:52 PM EDT Mario Ortiz GhanshyamAdjug LAB BLOOD ORDERABLES Fin al Result Performing Organization Address [facility] de Phone Number [facility]
[address] [place] [address], * (ABNORMAL) Sedimentation Rate (04/04/2025 2:47 PM EDT) Sed Rate 51(H) 0 - 15 mm/hr 04/04/2025 3:06 PM EDT [facility] Blood Venipuncture / Unknown 04/04/2025 2:47 PM EDT 04/04/2025 2:52 PM EDT [facility] BLOOD ORDERABLES Fin al Result Performing Organization Address City/[facility]/ZIP Co de Phone Number [facility]
[address] [place] [address], * Comprehensive Metabolic Panel (04/04/2025 2:47 PM EDT) [facility] Glucose 90 65 - 99 mg/dL [...] Fin al Result [facility]
[address] [place] [address], documented in this encounter Visit Diagnoses Diagnosis [...] 04/05/2025 3:33 PM EDT 2,000 Units heparin 73215 units/250 mL (100 units/mL) in 0.45 % [...] BPA Driven Protocol Open Order & [facility] Electrolyte Replacement Protocol Algorithm to View [...] BPA Driven Protocol Open Order & [facility] Electrolyte Replacement Protocol Algorithm to View [...] disposal. 0831 (Given - Provider: Amber Salazar, LEAF [employer] SCRAPER)194 (Given - Provider: Anahy Marcelino, [employer] SCRAPER)2129 (Canceled Entry - Provider: Anahy Marcelino RRT [...] Continuous Medication Order 04/09/2025 04/10/2025 04/11/2025 heparin 59767 units/250 mL (100 units/mL) in 0.45 % [...] BPA Driven Protocol Open Order & [facility] Electrolyte Replacement Protocol Algorithm to View [...] BPA Driven Protocol Open Order & [facility] Electrolyte Replacement Protocol Algorithm to View [...] documented as of this encounter Care Teams Shipper Relationship Specialty Start Date End Date Provider, [place] [id number] PCP - General 05/09/23 documented as of this encounter
--- OUTSIDE RECORDS SUMMARY | 2025-04-07 18:00 | XMS_ITS | Encounter Summary ---
[facility] Address [address] [place] [address] Care Team Providers Care Retread Operator Name Role Phone Provider, No Known Primary Care Provider Unavail able Reason for Visit * Reason Comments Leg Swelling * Auth/Cert Specialty Diagnoses / Procedures Referred By Contac t Referred To Contact Diagnoses Right BKA infection Referral ID Status Reason Start Date Expiration Date Visits Re quested Visits Authorized [id number] 1 1 Encounter Details Date Type Department Care Team (Late st Contact Info) Description 04/07/2025 6:00 PM EDT - 04/07/2025 6:52 PM EDT Surgery [facility] [address] [place] [address] Sushil Dean Jr., MD [address] [place] [address] [address] [id number] LEG DEBRIDEMENT, IRRIGATION Social History Tobacco Use Types Packs/Day Years Used Date Smoking Tobacco: Never Smokeless Tobacco: Never Tobacco Cessation:Counseling Given: Not Answered Alcohol Use Standard Drinks/Week Comments Not Currently 0 (1 standard drink = 0.6 oz pur e alcohol) [facility] Utilities Answer Date Recorded In the past 12 months has [employer] electric, gas, oil, or water company threatened [...] 2:25 PM EDT Cherri Grimm RN * Andrews Suicide Severity Rating Scale (Screener/Recent Self-Report) Question [...] original note were not included. [facility] Medicine Services DISCHARGE SUMMARY Patient Name: Won [...] Date/Time Wound Culture - Swab, Leg, Right [[id number]] (Abnormal) (Susceptibility) Collected: 04/07/252106 Lab Status: Final [...] Units Date/Time FL C Arm During Surgery [[id number]] Resulted: 04/07/252137 Updated: 04/07/252137 Narrative: This procedure was auto-finalized with no dictation required. MRI Tibia Fibula Right With & Without Contrast [[id number]] Collected: 04/07/25 0938 Updated: 04/07/25 1001 Narrative: [...] Buenrostro 04/07/2025 9:58 AM EDT Workstation ID: [id number] MRI Tibia Fibula Right With & Without Contrast [[id number]] Collected: 04/04/252256 Updated: 04/04/252302 Narrative: MRI TIBIA [...] represent a small area of phlegmonous change (ilmlpp69 image 10) measuring approximately 1.6 cm which [...] MD 04/04/2025 11:00 PM EDT Workstation ID: [id number] Pending Labs Order Current Status Fungus Culture [...] Male) Date of 1980 Social Security Number [id number] [place] [address] [place] [address] Roman Catholic Unknown Marital Status Unknown Admission Date 04/04/2025 Admission Type Emergency Admitting Provider Jadyn Richardson DO Attending Provider Jadyn Richardson DO Department, Room/Bed [facility] 5G, S565/1 Discharge Date Discharge Disposition Discharge [...] Group [employer] [id number] Payor Plan Address Payor Plan Phone Number Payor Plan Fax Number Effective Dates [employer] [address] [address] 08/10/2023 - None Entered [facility] [address] Subscriber Name Subscriber Date Member ID WON DENNIS 1980 [id number] Emergency Contacts 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 (Rel.) Home Phone Work Phone Mobile Phone Avril Dennis (Spouse) -- -- [phone] Robert Hackett (Relative) -- -- [phone] [facility] 5G [address] [facility] [address] Patient: ROOM: [facility] Won Dennis [address] [facility] [place] [address] : 1980 SSN: [id number] Sex: M PCP: Provider, No Known Emergency Contact Information Name Relation Home Work Mobile Avril Dennis Spouse [phone] Other Contacts Name Relation Home Work Mobile Robert Hackett Relative [phone] INSURANCE PAYOR PLAN [employer] # SUBSCRIBER ID Primary: Secondary: MEDICARE [employer]ICA[place] [id number] Admitting Diagnosis: 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] Order Date: Apr 09, 2025 Case Management Quality Manager Consult (Order ID: [id number]) Diagnosis: Priority: Routine Expected Date: Expiration Date: [...] INFECTIOUS DISEASE Progress Note Won Dennis 1980 [id number] Date of Consult: 04/10/2025 Admission Date: 04/04/2025 [...] which prompted him to seek treatment at [facility]. He is known to Dr. Dean. [...] Jr., MD, 20 mg at 04/09/25906 heparin 72972 units/250 mL (100 units/mL) in 0.45 % [...] 0.4 mg, Sublingual, Q5 Min PRN, Sushil Daen Jr., MD ondansetron ODT (ZOFRAN-ODT) disintegrating tablet [...] Units Date/Time FL C Arm During Surgery [[id number]] Resulted: 04/07/252137 Updated: 04/07/252137 Narrative: This procedure was auto-finalized with no dictation required. MRI Tibia Fibula Right With & Without Contrast [[id number]] Collected: 04/07/2538 Updated: 04/07/25 1001 Narrative: MRI [...] Buenrostro 04/07/2025 9:58 AM EDT Workstation ID: [id number] Impression: Recurrent Right BKA stump abscess/cellulitis- this [...] Creation Time: 04/10/251323 Signed Expand All [facility] Medicine Services PROGRESS NOTE Patient [...] Date/Time Wound Culture - Swab, Leg, Right [[id number]] (Abnormal) (Susceptibility) Collected: 04/07/252106 Lab Status: Final [...] Row Name 04/06/25 1143 Sit-Stand Transfer Sit-Stand [place] (Transfers) modified independence - Comment, (Sit-Stand Transfer) Pt stood from recliner. Not holding onto walker, pt able to pull his pants up while balancing on his one leg. -LM Row Name 04/06/25 1143 Gait/Stairs (Locomotion) [place] Level (Gait) modified independence - Distance in [...] Motion bilateral lower extremity ROM WFL -LM [facility] Name 04/06/25 1145 Strength Comprehensive (MMT) General Manual Muscle Testing (MMT) Assessment no strength deficits identified BLEs -LM [facility] Name 04/06/25 1145 Balance Balance Assessment sitting [...] Physical Therapist Goals/Plan No documentation. Clinical Impression [facility] 04/06/25 1146 Pain Pretreatment Pain Rating 0/10 - no pain -LM Posttreatment Pain Rating 0/10 - no pain -LM [facility] 04/06/25 1146 Plan of Care Review Plan of Care Reviewed With patient -LM Outcome Evaluation PT evaluation completed. Pt demonstrated independence with all mobility including ambulating 100 feet using rw - no unsteadiness noted. Pt reports he feels at baseline and doesn't think he needs skilled PT while here. Recommend home at d/c. PT signing off. -LM [facility] Name 04/06/25 1146 Therapy Assessment/Plan (PT) Criteria for Skilled Interventions Met (PT) no;no problems identified which require skilled intervention -LM Therapy Frequency (PT) evaluation only -LM Predicted Duration of Therapy Intervention (PT) Eval Only -LM [facility] Name 04/06/25 1146 Vital Signs Pretreatment Heart Rate (beats/min) 86 -LM Posttreatment Heart Rate (beats/min) 96 -LM Pre SpO2 (%) 95 -LM O2 Delivery Pre Treatment room air -LM Post SpO2 (%) 96 -LM O2 Delivery Post Treatment room air -LM Pre Patient Position Sitting -LM Post Patient Position Sitting -LM [facility] Name 04/06/25 1146 Positioning and Restraints Pre-Treatment [...] Nurse Physical Therapy Education Title: PT OT CORPORATE LEARNING CONSULTANT Therapies (Done) Topic: Physical Therapy (Done) Point: Mobility training (Done) Learning Progress Summary Patient Acceptance, E, VU,DU by at 04/06/2025 1147 Point: Precautions (Done) Learning Progress Summary Patient Acceptance, E, VU,DU by at 04/06/2025 1147 User Cabrera Initials Effective Dates Name Provider Type [facility] [place] 01/24/25 - Susan Cavazos, PT Physical Therapist [...] Description Service Date Service Provider Modifiers Qty [id number] PT EVAL LOW COMPLEXITY 3 04/06/2025 Susan [...] mg Daily 04/05/2025 -- Route: Oral heparin 00568 units/250 mL (100 units/mL) in 0.45 % [...] 22 [facility] [address], [address] [facility], [address] Please schedule at [phone] VONDA Garcia 04/11/25 08:32 EDT Cosigned by Sushil Dean Jr., MD at 04/19/2025 10:33 AM EDT Associated attestation - Sushil Dean Jr., MD - 04/19/2025 10:33 AM EDT I have reviewed this documentation and agree. * Rosario Hill APRN - 04/10/2025 1:24 PM EDT Images from the original note were not included. [facility] Services PROGRESS NOTE Patient Name: Won [...] Date/Time Wound Culture - Swab, Leg, Right [[id number]] (Abnormal) (Susceptibility) Collected: 04/07/252106 Lab Status: Final [...] mg Daily 04/05/2025 -- Route: Oral heparin 26866 units/250 mL (100 units/mL) in 0.45 % [...] 22 [facility] [address] [facility], [address] [facility], [address] Please schedule at [phone] VONDA Garcia 04/10/25 09:01 EDT Cosigned by Sushil Dean Jr., MD at 04/19/2025 10:33 AM EDT Associated attestation - Sushil Dean Jr., MD - 04/19/2025 10:33 AM EDT I have reviewed this documentation and agree. * Carlton Mead MD - 04/10/2025 7:38 AM EDT Images from the original note were not included. INFECTIOUS DISEASE Progress Note Won Dennis 1980 [id number] Date of Consult: 04/10/2025 Admission Date: 04/04/2025 [...] which prompted him to seek treatment at [facility]. He is known to Dr. Dean. [...] IRRIGATION; Surgeon: Sushil Dean Jr., MD; Location: [facility]; Service: Orthopedics; Laterality: Right; PLACEMENT OF WOUND VAC Right 04/07/2025 Procedure: WOUND VACUUM ASSISTED CLOSURE; Surgeon: Sushil Dean Jr., MD; Location: [facility] OR; Service: Orthopedics; Laterality: Right; WOUND CLOSURE Right 04/08/2025 Procedure: WOUND CLOSURE DELAYED; Surgeon: Sushil Dean Jr., MD; Location: [facility]; Service:Orthopedics; Laterality: Right; WOUND DEBRIDEMENT Right 04/08/2025 Procedure: LEG DEBRIDEMENT AND IRRIGATION; Surgeon: Sushil Dean Jr., MD; Location: [facility]; Service: Orthopedics; Laterality: Right; History [...] Jr., MD, 20 mg at 04/09/25906 heparin 20761 units/250 mL (100 units/mL) in 0.45 % [...] Units Date/Time FL C Arm During Surgery [[id number]] Resulted: 04/07/252137 Updated: 04/07/252137 Narrative: This procedure was auto-finalized with no dictation required. MRI Tibia Fibula Right With & Without Contrast [[id number]] Collected: 04/07/25937 Updated: 04/07/25 100 Narrative: MRI [...] Buenrostro 04/07/2025 9:58 AM EDT Workstation ID: [id number] Impression: Recurrent Right BKA stump abscess/cellulitis- this [...] Larisa Hamilton [facility] - 04/10/2025 7:17 AM EDT Pharmacy to [...] original note were not included. [facility] Services PROGRESS NOTE Patient Name: Won [...] Date/Time Wound Culture - Swab, Leg, Right [[id number]] (Abnormal) Collected: 04/07/252106 Lab Status: Preliminary result [...] Larisa Hamilton [facility] - 04/09/2025 11:36 AM EDT Pharmacy to [...] mg Daily 04/05/2025 -- Route: Oral heparin 30646 units/250 mL (100 units/mL) in 0.45 % [...] radiographs [facility] [address] [facility] [facility], [address] [facility], [address] Please schedule at [phone] VONDA Garcia 04/09/25 09:18 EDT Cosigned by Sushil Dean Jr., MD at 04/19/2025 10:33 AM EDT Associated attestation - Sushil Dean Jr., MD - 04/19/2025 10:33 AM EDT I have reviewed this documentation and agree. * Carlton Mead MD - 04/09/2025 8:25 AM EDT Images from the original note were not included. INFECTIOUS DISEASE Progress Note Won Dennis 1980 [id number] Date of Consult: 04/09/2025 Admission Date: 04/04/2025 [...] which prompted him to seek treatment at [facility]. He is known to Dr. Dean. [...] Sushil Dean Jr., MD; Location: [facility] OR; Service: Orthopedics; Laterality: Right; History [...] MD, 20 mg at 04/08/25 0800 heparin 60454 units/250 mL (100 units/mL) in 0.45 % [...] Units Date/Time FL C Arm During Surgery [[id number]] Resulted: 04/07/252137 Updated: 04/07/252137 Narrative: This procedure was auto-finalized with no dictation required. MRI Tibia Fibula Right With & Without Contrast [[id number]] Collected: 04/07/25 0938 Updated: 04/07/25 1001 Narrative: [...] Chitra 04/07/2025 9:58 AM EDT Workstation ID: [id number] Impression: Recurrent Right BKA stump abscess/cellulitis- this [...] original note were not included. [facility] Services PROGRESS NOTE Patient Name: Won [...] Buenrostro 04/07/2025 9:58 AM EDT Workstation ID: [id number] I have personally reviewed the therapy plans: [...] Hamilton, Larisa, [facility] - 04/08/2025 11:48 AM EDT Pharmacy to [...] mg Daily 04/05/2025 -- Route: Oral heparin 44356 units/250 mL (100 units/mL) in 0.45 % [...] INFECTIOUS DISEASE Progress Note Won Dennis 1980 [id number] Date of Consult: 04/08/2025 Admission Date: 04/04/2025 [...] which prompted him to seek treatment at [facility]. He is known to Dr. Dean. [...] Sushil Dean Jr., MD; Location: [facility] OR; Service: Orthopedics; Laterality: Right; PLACEMENT OF WOUND VAC Right 04/07/2025 Procedure: WOUND VACUUM ASSISTED CLOSURE; Surgeon: Sushil Dean Jr., MD; Location: [facility] OR; Service: Orthopedics; Laterality: Right; History [...] Oral, Q6H PRN, 500 mg at 04/06/25 0864 OR acetaminophen (TYLENOL) 160 MG/5ML oral solution [...] Jr., MD, 20 mg at 04/07/25950 heparin 25220 units/250 mL (100 units/mL) in 0.45 % [...] Units Date/Time FL C Arm During Surgery [[id number]] Resulted: 04/07/252137 Updated: 04/07/252137 Narrative: This procedure was auto-finalized with no dictation required. 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 (Treated by ID in [place] Dr. Harris). Dr. Torres treated him with [...] original note were not included. [facility] Services PROGRESS NOTE Patient Name: Won [...] Buenrostro 04/07/2025 9:58 AM EDT Workstation ID: [id number] I have personally reviewed the therapy plans: [...] Larisa Hamilton, [facility] - 04/07/2025 11:56 AM EDT Pharmacy to [...] INFECTIOUS DISEASE Progress Note Won Dennis 1980 [id number] Date of Consult: 04/07/2025 Admission Date: 04/04/2025 [...] which prompted him to seek treatment at [facility]. He is known to Dr. Dean. [...] MD, 20 mg at 04/06/25 0900 heparin 50110 units/250 mL (100 units/mL) in 0.45 % NaCl infusion, 18 Units/kg/hr, Intravenous, Titrated, Cherri Beatty, [facility], Last Rate: 24.1 mL/hr at 04/07/258, 18 [...] Nightly, Leonora hSepherd MD, 0.4 mg at 04/06/25 2101 valsartan [...] With & Without Contrast - In process [[id number]] Resulted: 04/07/25828 Updated: 04/07/25828 This result has not been signed. Information might be incomplete. 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 (Treated by ID in [place] Dr. Harris). Dr. Torres treated him with [...] mg Daily 04/05/2025 -- Route: Oral heparin 02523 units/250 mL (100 units/mL) in 0.45 % [...] Cherri Beatty [facility] - 04/06/2025 1:47 PM EDT Pharmacy to [...] original note were not included. [facility] Services PROGRESS NOTE Patient Name: Won [...] MD 04/04/2025 11:00 PM EDT Workstation ID: [id number] I have personally reviewed the therapy plans: [...] mg Daily 04/05/2025 -- Route: Oral heparin 49393 units/250 mL (100 units/mL) in 0.45 % [...] INFECTIOUS DISEASE follow up. Won Dennis 1980 [id number] Date of Consult: 04/06/2025 Admission Date: 04/04/2025 [...] which prompted him to seek treatment at [facility]. He is known to Dr. Dean. [...] MD, 20 mg at 04/06/25 0900 heparin 65516 units/250 mL (100 units/mL) in 0.45 % NaCl infusion, 18 Units/kg/hr, Intravenous, Titrated, Cherri Beatty [facility], Last Rate: 24.1 mL/hr at 04/06/25 1420, [...] 250 mg, 250 mg, Oral, BID, Leonora Shpeherd MD, 250 mgat 04/06/25 0859 sertraline (ZOLOFT) [...] Tibia Fibula Right With & Without Contrast [[id number]] Collected: 04/04/252256 Updated: 04/04/252302 Narrative: MRI TIBIA [...] represent a small area of phlegmonous change (ourtxy12 image 10) measuring approximately 1.6 cm which [...] MD 04/04/2025 11:00 PM EDT Workstation ID: [id number] Impression: Right BKA stump cellulitis- 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 (Treated by ID in [place] Dr. Harris). Dr. Torres treated him with [...] original note were not included. [facility] Services PROGRESS NOTE Patient Name: Won [...] MD 04/04/2025 11:00 PM EDT Workstation ID: [id number] I have personally reviewed the therapy plans: [...] original note were not included. [facility] Services HISTORY AND PHYSICAL Patient Name: [...] MD 04/04/2025 11:00 PM EDT Workstation ID: [id number] Assessment & Plan Assessment & Plan Won [...] 4FR PICC placed by Rhoda Bonner RN [facility], tip verified by 3CG see LDA. * Sushil Dean Jr., MD - 04/05/2025 8:07 AM EDTAssociated Order(s): IP CONSULT TO ORTHOPEDIC SURGERY [facility], [facility] [address] [address] Orthopedic Consult Patient: Won Dennis Date of [...] was evaluated in the emergency department in [place], was discharged with instructions for follow-up. He [...] by mouth Daily. 04/03/2025 Morning Lactobacillus-Inulin ([facility]) capsule Take 200 mg by [...] MD 04/04/2025 11:00 PM EDT Workstation ID: [id number] Assessment: Right BKA infection 44-year-old male with [...] DISEASE CONSULT/INITIAL HOSPITAL VISIT Won Dennis 1980 [id number] Date of Consult: 04/05/2025 Admission Date: 04/04/2025 [...] which prompted him to seek treatment at [facility]. He is known to Dr. Dean. [...] Leonora Shepherd MD, 40 mg at 04/04/25 7658 sennosides-docusate (PERICOLACE) 8.6-50 MG per tablet 2 [...] MD, 20 mg at 04/05/25 09 heparin 71871 units/250 mL (100 units/mL) in 0.45 % [...] Leonora Shepherd MD, 10 mg at 04/04/25 5106 Pharmacy to Dose Heparin, , Not Applicable, [...] Tibia Fibula Right With & Without Contrast [[id number]] Collected: 04/04/252256 Updated: 04/04/252302 Narrative: MRI TIBIA [...] represent a small area of phlegmonous change (cuwejz52 image 10) measuring approximately 1.6 cm which [...] MD 04/04/2025 11:00 PM EDT Workstation ID: [id number] Impression: Right BKA stump cellulitis- s/p BKA with multiple surgical interventions with Known MRSA 05/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 (Treated by ID in [place] Dr. Harris). Dr. Torres treated him with [...] infection POSTOP DIAGNOSIS: Same. PROCEDURE: Right Right 84993: Secondary closure below-knee amputation SURGEON: Sushil Dean MD OPERATIVE TEAM: Golf Caddie: Susi Grullon RN Scrub Person: Mary Paredes Scrub Person Extra: Hortencia Toribio Other: Katt Gotti RN; Charis Neville RN ANESTHETIST: Anesthesiologist: Ulises Hoffman MD KEEPER HEAD: Stan Casillas CRNA Student Nurse Prototype Technician: Karol Albert SRNA ANESTHESIA: Choice ESTIMATED [...] CULTURE (Canceled) Sushil Dean Jr., MD 04/08/25 0338 Description: RIGHT LEG DEEP WOUND FOR CULTURE [...] PM EDT [facility], [place] [address] OPERATIVE REPORT PATIENT NAME: Won Dennis DATE OF : 1980 PREOP DIAGNOSIS: Right Right below knee amputation stump infection POSTOP DIAGNOSIS: Same. PROCEDURE: Right Right 27808: Incision and drainage of surgical site infection 55753: Debridement of skin, subcutaneous tissue, muscle 98753: Wound vacuum-assisted closure SURGEON: Sushil Dean MD OPERATIVE TEAM: Golf Caddie: Anum Sanchez RN Scrub Person: Hortencia Toribio; Gerald Ivey TRAVELING REPAIR ACCOUNTANT: Anesthesiologist: Luci Alonso DO ANESTHESIA: General [...] ago swellling of the area. seen at [facility] yesterday for CT and US, here for MRI per pt Jermaine wanted to have scan and bloodworkHistory Obtained From: patient HISTORY OF PRESENT ILLNESS (Location/Symptom, Timing/Onset, Context/Setting, Quality, Duration, Modifying Factors, Severity.) Won Denins is a 44 y.o. male who presents [...] this chart in the absence of a caterpillar driver. No orders to display RADIOLOGY: [x] [...] is discharging home with outpatient infusion at [facility]. He has an appointment with [facility] at 8:00 am tomorrow. They will do PICC line dressing changes. DEBRA has spoke with Dena at [facility] today multiple times to get setup [...] with KELLEE and given themhis Medicare number [id number], she sent it to Admission. DEBRA spoke with Kerri, with [facility], and explained that he had Medicare A and B. However, it will not cover home infusion. It will be $64.00 a day out of packet. Patients can go to the Infusion center at [facility], and it will cover the cost as an outpatient. He will need to go there every day for infusion. They will be able to do the patients' PICC line dressing changes and lab work. DEBRA called Dena [facility] Outpatient infusion center they can accept patient and start him. He is known for their facility. The Facility will need to run it through his insurance first. CM faxed the orders over to [facility] at [phone]. CM will follow up with them tomorrow at [facility] to make sure they received [...] 04/09/2025 2:51 PM EDT Continued Stay Note [facility] Patient Name: Won Dennis Today's Date: 04/09/2025 Admit Date: 04/04/2025 Plan: Home Discharge Plan Row Name 04/09/25 1311 Plan Plan Home Patient/Family in Agreement with Plan yes Plan Comments CM spoke with patient at bedside today. Wheelchair from [employer] is at bedside. Patient getting PICC line [...] note were not included. Discharge Planning Assessment [facility] Patient Name: Won Dennis Today's Date: [...] family Patient/Family Anticipated Services at Transition caseworker intakeeducation and development manager Anticipated family or friend will [...] Auto Differential (04/11/2025 3:40 AM EDT) [facility] WBC 7.87 3.40 - 10.80 10*3/mm3 04/11/2025 4:02 AM EDT [facility] RBC 4.70 4.14 - 5.80 10*6/mm3 04/11/2025 4:02 AM [facility] Hemoglobin 12.8(L) 13.0 - 17.7 g/dL 04/11/2025 4:02 AM [facility] Hematocrit 40.5 37.5 - 51.0 % 04/11/2025 4:02 AM [facility] MCV 86.2 79.0 - 97.0 fL 04/[facility] MCH 27.2 26.6 - 33.0 pg 04/11/2025 4:02 AM [facility] MCHC 31.6 31.5 - 35.7 g/dL 04/11/2025 4:02 AM [facility] RDW 12.9 12.3 - 15.4 % 04/11/2025 4:02 AM [facility] RDW-SD 40.5 37.0 - 54.0 fl 04/11/2025 4:02 AM [facility] MPV 9.2 6.0 - 12.0 fL 04/11/2025 4:02 AM [facility] Platelets 267 140 - 450 10*3/mm3 04/11/2025 4:02 AM [facility] Neutrophil % 59.5 42.7 - 76.0 % 04/11/2025 4:02 AM [facility] Lymphocyte % 26.3 19.6 - 45.3 % 04/11/2025 4:02 AM [facility] Monocyte % 9.3 5.0 - 12.0 % 04/11/2025 4:02 AM [facility] Eosinophil % 4.1 0.3 - 6.2 % 04/11/2025 4:[facility] Basophil % 0.4 0.0 - 1.5 % 04/11/2025 4:02 [facility] Immature Grans % 0.4 0.0 - 0.5 % 04/11/2025 4:02 AM [facility] Neutrophils, Absolute 4.69 1.70 - 7.00 10*3/mm3 04/11/2025 4:02 AM EDT [facility] Lymphocytes, Absolute 2.07 0.70 - 3.10 10*3/mm3 04/11/2025 4:02 AM EDT [facility] Monocytes, Absolute 0.73 0.10 - 0.90 10*3/mm3 04/11/2025 4:02 AM EDT [facility] Eosinophils, Absolute 0.32 0.00 - 0.40 10*3/mm3 04/11/2025 4:02 AM EDT [facility] Basophils, Absolute 0.03 0.00 - 0.20 10*3/mm3 04/11/2025 4:02 AM EDT [facility] Immature Grans, Absolute 0.03 0.00 - 0.05 10*3/mm3 04/11/2025 4:02 AM EDT [facility] nRBC 0.0 0.0 - 0.2 /100 WBC 04/11/2025 4:02 AM EDT [facility] Blood Venipuncture / Unknown 04/11/2025 3:40 AM EDT 04/11/2025 3:59 AM EDT us Sushil Dean Jr., MD LAB BLOOD ORDERABLES Fi nal Result [facility]
[address] [place] [address], * (ABNORMAL) Comprehensive Metabolic Panel (04/11/2025 3:40 AM EDT) [facility] Signature Glucose 108(H) 65 - 99 mg/dL 04/11/2025 4:19 AM EDT [facility] BUN 12.5 6.0 - 20.0 mg/dL 04/11/2025 4:19 AM EDT [facility] Creatinine 0.68(L) 0.76 - 1.27 mg/dL 04/11/2025 4:19 AM [facility] Sodium 140 136 - 145 mmol/L 04/11/2025 4:19 AM [facility] Potassium 3.8 3.5 - 5.2 mmol/L 04/11/2025 4:19 AM [facility] Chloride 105 98 - 107 mmol/L 04/11/2025 4:19 AM [facility] CO2 28.2 22.0 - 29.0 mmol/L 04/11/2025 4:19 AM [facility] Calcium 8.2(L) 8.6 - 10.5 mg/dL 04/11/2025 4:19 AM [facility] Total Protein 6.1 6.0 - 8.5 g/dL 04/11/2025 4:19 AM [facility] Albumin 3.1(L) 3.5 - 5.2 g/dL 04/11/2025 4:19 AM [facility] ALT (SGPT) 52(H) 1 - 41 U/L 04/11/2025 4:19 AM [facility] AST (SGOT) 40 1 - 40 U/L 04/11/2025 4:19 AM [facility] Alkaline Phosphatase 99 39 - 117 U/L 04/11/2025 4:19 AM [facility] Total Bilirubin 0.2 0.0 - 1.2 mg/dL 04/11/2025 4:19 AM [facility] Globulin 3.0 gm/dL 04/11/2025 4:19 AM [facility] Comment:Calculated Result A/G Ratio 1.0 g/dL 04/11/2025 4:19 AM [facility] BUN/Creatinine Ratio 18.4 7.0 - 25.0 04/11/2025 4:19 AM [facility] Anion Gap 6.8 5.0 - 15.0 mmol/L 04/11/2025 4:19 AM [facility] eGFR 117.5 >60.0 mL/min/1.7 3 04/11/2025 4:19 AM EDT [facility] Blood Venipuncture / Unknown 04/11/2025 3:40 AM EDT 04/11/2025 3:56 AM EDT [facility] - 04/11/2025 4:19 AM [...] include race as a factor Rosario Hill [employer]ANCE [employer] LAB BLOOD ORDERABLES Final Result [facility]
[address] [place] [address], * (ABNORMAL) CBC Auto Differential (04/10/2025 3:46 AM EDT) WBC 9.60 3.40 - 10.80 10*3/mm3 04/10/2025 3:56 AM EDT [facility] RBC 4.67 4.14 - 5.80 10*6/mm3 04/10/2025 3:56 AM EDT [facility] Hemoglobin 12.9(L) 13.0 - 17.7 g/dL 04/10/2025 3:56 AM EDT [facility] Hematocrit 40.1 37.5 - 51.0 % 04/10/2025 3:56 AM EDT [facility] MCV 85.9 79.0 - 97.0 fL 04/10/2025 3:56 AM EDT [facility] MCH 27.6 26.6 - 33.0 pg 04/10/2025 3:56 AM EDT [facility] MCHC 32.2 31.5 - 35.7 g/dL 04/10[facility]2025 3:[facility] RDW 12.9 12.3 - 15.4 % 04/10/2025 3:56 AM [facility] RDW-SD 40.5 37.0 - 54.0 fl 04/10/2025 3:56 AM [facility] MPV 9.5 6.0 - 12.0 fL 04/10/2025 3:56 AM EDT [facility] Platelets 227 140 - 450 10*3/mm3 04/10/2025 3:56 AM [facility] Neutrophil % 59.1 42.7 - 76.0 % 04/10/2025 3:56 AM [facility] Lymphocyte % 29.0 19.6 - 45.3 % 04/10/2025 3:56 AM [facility] Monocyte % 8.1 5.0 - 12.0 % 04/10/2025 3:56 [facility] Eosinophil % 3.2 0.3 - 6.2 % 04/10/2025 3:56 AM [facility] Basophil % 0.4 0.0 - 1.5 % 04/10/2025 3:56 AM [facility] Immature Grans % 0.2 0.0 - 0.5 % 04/10/2025 3:56 AM [facility] Neutrophils, Absolute 5.67 1.70 - 7.00 10*3/mm3 04/10/2025 3:56 [facility] Lymphocytes, Absolute 2.78 0.70 - 3.10 10*3/mm3 04/10/2025 3:56 AM [facility] Monocytes, Absolute 0.78 0.10 - 0.90 10*3/mm3 04/10/2025 3:56 [facility] Eosinophils, Absolute 0.31 0.00 - 0.40 10*3/mm3 04/10/2025 3:56 AM [facility] Basophils, Absolute 0.04 0.00 - 0.20 10*3/mm3 04/10/2025 3:56 AM EDT [facility] Immature Grans, Absolute 0.02 0.00 - 0.05 10*3/mm3 04/10/2025 3:56 AM EDT [facility] nRBC 0.0 0.0 - 0.2 /100 WBC 04/10/2025 3:56 AM EDT [facility] Blood Venipuncture / Unknown 04/10/2025 3:46 AM EDT 04/10/2025 3:53 AM EDT us Jason Álvarez DO LAB BLOOD ORDERABLES Final Resul t [facility]
[address] [place] [address], * (ABNORMAL) Basic Metabolic Panel (04/10/2025 3:46 AM EDT) Glucose 125(H) 65 - 99 mg/dL 04/10/2025 4:20 AM EDT [facility] BUN 15.9 6.0 - 20.0 mg/dL 04/10/2025 4:20 AM EDT [facility] Creatinine 0.77 0.76 - 1.27 mg/dL 04/10/2025 4:20 AM EDT [facility] Sodium 137 136 - 145 mmol/L 04/10/2025 4:20 AM EDT [facility] Potassium 3.9 3.5 - 5.2 mmol/L 04/10/2025 4:20 AM EDT [facility] Chloride 102 98 - 107 mmol/L 04/10/2025 4:20 AM EDT [facility] CO2 26.9 22.0 - 29.0 mmol/L 04/10/2025 4:20 AM EDT [facility] Calcium 7.9(L) 8.6 - 10.5 mg/dL 04/10/2025 4:20 AM EDT [facility] BUN/Creatinine Ratio 20.6 7.0 - 25.0 04/10/2025 4:20 AM EDT [facility] Anion Gap 8.1 5.0 - 15.0 mmol/L 04/10/2025 4:20 AM EDT [facility] eGFR 113.2 >60.0 mL/min/1.7 3 04/10/2025 4:20 AM EDT [facility] Blood Venipuncture / Unknown 04/10/2025 3:46 AM EDT 04/10/2025 3:52 AM EDT Narrative [facility] - 04/10/2025 4:20 AM EDT GFR [...] BLOOD ORDERABLES Final Resul t [facility]
[address] [place] [address], * Heparin Anti-Xa (04/10/2025 3:46 AM EDT) Heparin Anti-Xa (UFH) 0.35 0.30 - 0.70 IU/ml 04/10/2025 4:23 AM EDT [facility] Blood Venipuncture / Unknown 04/10/2025 3:46 AM EDT 04/10/2025 3:53 AM EDT Larisa Hamilton FOR[facility]LY [facility] LAB BLOOD ORDERABLES Final R esult [facility]
[address] [place] [address], * Heparin Anti-Xa (04/09/2025 10:05 AM EDT) Pathologist [facility] [place] Heparin Anti-Xa (UFH) 0.36 0.30 - 0.70 IU/ml 04/09/2025 11:12 AM EDT [facility] Blood Venipuncture / Unknown 04/09/2025 10:05 AM EDT 04/09/2025 10:47 AM EDT Larisa Hamilton [facility] LAB BLOOD ORDERABLES Final R esult [facility]
[address] [place] [address], * (ABNORMAL) CBC Auto Differential (04/09/2025 4:18 AM EDT) Pathologist [facility] [place] WBC 11.00(H) 3.40 - 10.80 10*3/mm3 04/09/2025 4:50 AM EDT [facility] RBC 4.70 4.14 - 5.80 10*6/mm3 04/09/2025 4:50 AM EDT [facility] Hemoglobin 13.0 13.0 - 17.7 g/dL 04/09/2025 4:50 AM EDT [facility] Hematocrit 40.4 37.5 - 51.0 % 04/09/2025 4:50 AM EDT [facility] MCV 86.0 79.0 - 97.0 fL 04/09/2025 4:50 AM EDT [facility] MCH 27.7 26.6 - 33.0 pg 04/09/2025 4:50 AM EDT [facility] MCHC 32.2 31.5 - 35.7 g/dL 04/09/2025 4:50 AM EDT [facility] RDW 12.8 12.3 - 15.4 % 04/09/2025 4:50 AM [facility] RDW-SD 39.9 37.0 - 54.0 fl 04/09/2025 4:50 AM [facility] MPV 10.0 6.0 - 12.0 fL 04/09/2025 4:50 AM [facility] Platelets 211 140 - 450 10*3/mm3 04/09/2025 4:[facility] Neutrophil % 74.8 42.7 - 76.0 % 04/09/2025 4:50 AM [facility] Lymphocyte % 15.4(L) 19.6 - 45.3 % 04/09/2025 4:50 AM [facility] Monocyte % 8.5 5.0 - 12.0 % 04/09/2025 4:50 AM [facility] Eosinophil % 0.6 0.3 - 6.2 % 04/09/2025 4:50 AM [facility] Basophil % 0.4 0.0 - 1.5 % 04/09/2025 4:50 AM [facility] Immature Grans % 0.3 0.0 - 0.5 % 04/09/2025 4:50 AM [facility] Neutrophils, Absolute 8.23(H) 1.70 - 7.00 10*3/mm3 04/09/2025 4:50 AM [facility] Lymphocytes, Absolute 1.69 0.70 - 3.10 10*3/mm3 04/09/2025 4:50 AM [facility] Monocytes, Absolute 0.94(H) 0.10 - 0.90 10*3/mm3 04/09/2025 4:50 [facility] Eosinophils, Absolute 0.07 0.00 - 0.40 10*3/mm3 04/09/2025 4:50 AM [facility] Basophils, Absolute 0.04 0.00 - 0.20 10*3/mm3 04/09/2025 4:50 AM [facility] Immature Grans, Absolute 0.03 0.00 - 0.05 10*3/mm3 04/09/2025 4:50 AM EDT [facility] nRBC 0.0 0.0 - 0.2 /100 WBC 04/09/2025 4:50 AM EDT [facility] Blood Venipuncture / Unknown 04/09/2025 4:18 AM EDT 04/09/2025 4:31 AM EDT Sushil Dean Jr., MD LAB BLOOD ORDERABLES Fi nal Result [facility]
[address] [place] [address], * Heparin Anti-Xa (04/09/2025 4:18 AM EDT) Heparin Anti-Xa (UFH) 0.41 0.30 - 0.70 IU/ml 04/09/2025 4:53 AM EDT [facility] Blood Venipuncture / Unknown 04/09/2025 4:18 AM EDT 04/09/2025 4:31 AM EDT Una LundbergD LAB BLOOD ORDERABLES Final R esult [facility]
[address] [place] [address], * (ABNORMAL) Basic Metabolic Panel (04/09/2025 4:18 AM EDT) Glucose 147(H) 65 - 99 mg/dL 04/09/2025 5:33 AM EDT [facility] BUN 23.0(H) 6.0 - 20.0 mg/dL 04/09/2025 5:33 AM EDT [facility] Creatinine 1.15 0.76 - 1.27 mg/dL 04/09/2025 5:33 AM EDT [facility] Sodium 135(L) 136 - 145 mmol/L 04/09/2025 5:33 AM EDT [facility] Potassium 4.2 3.5 - 5.2 mmol/L 04/09/2025 5:33 AM EDT [facility] Chloride 100 98 - 107 mmol/L 04/09/2025 5:33 AM EDT [facility] CO2 26.0 22.0 - 29.0 mmol/L 04/09/2025 5:33 AM EDT [facility] Calcium 8.2(L) 8.6 - 10.5 mg/dL 04/09/2025 5:33 AM EDT [facility] BUN/Creatinine Ratio 20.0 7.0 - 25.0 04/09/2025 5:33 AM EDT [facility] Anion Gap 9.0 5.0 - 15.0 mmol/L 04/09/2025 5:33 AM EDT [facility] eGFR 80.5 >60.0 mL/min/1.7 3 04/09/2025 5:33 AM EDT [facility] Blood Venipuncture / Unknown 04/09/2025 4:18 AM EDT 04/09/2025 4:29 AM EDT [facility] - 04/09/2025 5:33 AM EDT [...] BLOOD ORDERABLES Fi nal Result [facility]
[address] [place] [address], * Wound Culture - Swab, Leg, Right (04/08/2025 3:40 PM EDT) Wound Culture No growth at 3 days ALIZA 04/11/2025 10:40 AM EDT [facility] Gram Stain Few (2+) WBCs seen 04/11/2025 10:40 AM EDT [facility] Gram Stain No organisms seen 04/11/2025 10:40 AM EDT [facility] Swab Structure of right lower limb / Unknown 04/08/2025 3:40 PM EDT 04/08/2025 8:05 PM EDT Sushil Dean Jr., MD MICROBIOLOGY - GENERAL ORDERABLES Final Result Performing Organization Address City/[facility]/ZIP Co de Phone Number [facility]
[address] [place] [address], [facility]
[address] [place] [address], * Anaerobic Culture - Swab, Leg, Right (04/08/2025 3:40 PM EDT) Pathologist [facility] [place] Anaerobic Culture No anaerobes isolated at 5 days ALIZA 04/13/2025 7:24 AM EDT [facility] Swab Structure of right lower limb / Unknown 04/08/2025 3:40 PM EDT 04/08/2025 8:05 PM EDT Sushil Dean Jr., MD MICROBIOLOGY - GENERAL ORDERABLES Final Result [facility]
[address] [place] [address], * Scan Slide (04/08/2025 8:41 AM EDT) RBC Morphology Normal Normal 04/08/2025 11:02 AM EDT [facility] WBC Morphology Normal Normal 04/08/2025 11:02 AM EDT [facility] Platelet Estimate Adequate Normal 04/08/2025 11:02 AM EDT [facility] Clumped Platelets Present None Seen 04/08/2025 11:02 AM EDT [facility] Blood Venipuncture / Unknown 04/08/2025 8:41 AM EDT 04/08/2025 9:10 AM EDT Una Minda PharmD LAB BLOOD ORDERABLES Final R esult [facility]
[address] [place] [address], * (ABNORMAL) CBC Auto Differential (04/08/2025 8:41 AM EDT) WBC 10.07 3.40 - 10.80 10*3/mm3 04/08/2025 11:02 AM EDT [facility] RBC 5.01 4.14 - 5.80 10*6/mm3 04/08/2025 11:02 AM EDT [facility] Hemoglobin 14.0 13.0 - 17.7 g/dL 04/08/2025 11:02 AM EDT [facility] Hematocrit 42.7 37.5 - 51.0 % 04/08/2025 11:02 AM EDT [facility] MCV 85.2 79.0 - 97.0 fL 04/08/2025 11:02 AM EDT [facility] MCH 27.9 26.6 - 33.0 pg 04/08/2025 11:02 AM EDT [facility] MCHC 32.8 31.5 - 35.7 g/dL 04/08/2025 11:02 AM EDT [facility] RDW 12.6 12.3 - 15.4 % 04/08/2025 11:02 AM EDT [facility] RDW-SD 38.9 37.0 - 54.0 fl 04/08/2025 11:02 AM [facility] MPV 11.0 6.0 - 12.0 fL 04/08/2025 11:02 AM [facility] Platelets 118(L) 140 - 450 10*3/mm3 04/08/2025 11:02 AM [facility] Neutrophil % 85.1(H) 42.7 - 76.0 % 04/08/2025 11:02 AM [facility] Lymphocyte % 9.3(L) 19.6 - 45.3 % 04/08/2025 11:02 AM [facility] Monocyte % 4.6(L) 5.0 - 12.0 % 04/08/2025 11:02 AM [facility] Eosinophil % 0.3 0.3 - 6.2 % 04/08/2025 11:02 AM [facility] Basophil % 0.2 0.0 - 1.5 % 04/08/2025 11:02 AM [facility] Immature Grans % 0.5 0.0 - 0.5 % 04/08/2025 11:02 AM [facility] Neutrophils, Absolute 8.57(H) 1.70 - 7.00 10*3/mm3 04/08/2025 11:02 AM [facility] Lymphocytes, Absolute 0.94 0.70 - 3.10 10*3/mm3 04/08/2025 11:02 AM [facility] Monocytes, Absolute 0.46 0.10 - 0.90 10*3/mm3 04/08/2025 11:02 AM [facility] Eosinophils, Absolute 0.03 0.00 - 0.40 10*3/mm3 04/08/2025 11:02 AM [facility] Basophils, Absolute 0.02 0.00 - 0.20 10*3/mm3 04/08/2025 11:02 AM [facility] Immature Grans, Absolute 0.05 0.00 - 0.05 10*3/mm3 04/08/2025 11:02 AM EDT [facility] nRBC 0.0 0.0 - 0.2 /100 WBC 04/08/2025 11:02 AM EDT [facility] Blood Venipuncture / Unknown 04/08/2025 8:41 AM EDT 04/08/2025 9:10 AM EDT Una Perla PharmD LAB BLOOD ORDERABLES Final R esult [facility]
[address] [place] [address], * (ABNORMAL) Basic Metabolic Panel (04/08/2025 8:41 AM EDT) Glucose 125(H) 65 - 99 mg/dL 04/08/2025 9:51 AM EDT [facility] BUN 13.2 6.0 - 20.0 mg/dL 04/08/2025 9:51 AM EDT [facility] Creatinine 0.69(L) 0.76 - 1.27 mg/dL 04/08/2025 9:51 AM EDT [facility] Sodium 136 136 - 145 mmol/L 04/08/2025 9:51 AM EDT [facility] Potassium 4.6 3.5 - 5.2 mmol/L 04/08/2025 9:51 AM EDT [facility] Chloride 102 98 - 107 mmol/L 04/08/2025 9:51 AM EDT [facility] CO2 23.5 22.0 - 29.0 mmol/L 04/08/2025 9:51 AM EDT [facility] Calcium 8.4(L) 8.6 - 10.5 mg/dL 04/08/2025 9:51 AM EDT [facility] BUN/Creatinine Ratio 19.1 7.0 - 25.0 04/08/2025 9:51 AM EDT [facility] Anion Gap 10.5 5.0 - 15.0 mmol/L 04/08/2025 9:51 AM EDT [facility] eGFR 117.0 >60.0 mL/min/1.7 3 04/08/2025 9:51 AM EDT [facility] Blood Venipuncture / Unknown 04/08/2025 8:41 AM EDT 04/08/2025 9:09 AM EDT Narrative [facility] - 04/08/2025 9:51 AM EDT GFR [...] Fi nal Result Performing Organization Address City/[facility]/ZIP Co de Phone Number [facility]
[address] [place] [address], * Heparin Anti-Xa (04/08/2025 8:41 AM EDT) Heparin Anti-Xa (UFH) 0.33 0.30 - 0.70 IU/ml 04/08/2025 9:40 AM EDT [facility] Blood Venipuncture / Unknown 04/08/2025 8:41 AM EDT 04/08/2025 9:10 AM EDT us Sushil Dean Jr., MD LAB BLOOD ORDERABLES Fi nal Result [facility]
[address] [place] [address], * FL C Arm During Surgery (04/07/2025 9:32 PM EDT) Narrative SYSTEMGENERATED, DOCUMENTATION - 04/07/2025 9:38 PM EDT This procedure was auto-finalized with no dictation required. us Sushil Dean Jr., MD IMG FLUOROSCOPY ORDERAB LES Final Result * Wound Culture - Swab, Leg, Right (04/07/2025 9:14 PM EDT) Wound Culture No growth at 3 days ALIZA 04/11/2025 10:40 AM EDT [facility] Gram Stain Occasional WBCs seen 04/11/2025 10:40 AM EDT [facility] Gram Stain No organisms seen 04/11/2025 10:40 AM EDT [facility] Swab Structure of right lower limb / Unknown Collection / Unknown 04/07/2025 9:14 PM EDT 04/08/2025 4:36 AM EDT us Sushil Dean Jr., MD MICROBIOLOGY - GENERAL ORDERABLES Final Result Performing Organization Address City/[facility]/ZIP Co de Phone Number [facility]
[address] [place] [address], [facility]
[address] [place] [address], * Anaerobic Culture - Swab, Leg, Right (04/07/2025 9:14 PM EDT) Anaerobic Culture No anaerobes isolated at 5 days ALIZA 04/13/2025 7:21 AM EDT [facility] Swab Structure of right lower limb / Unknown Collection / Unknown 04/07/2025 9:14 PM EDT 04/08/2025 4:36 AM EDT us Sushil Dean Jr., MD MICROBIOLOGY - GENERAL ORDERABLES Final Result [facility]
[address] [place] [address], * Anaerobic Culture - Tissue, Leg (04/07/2025 9:13 PM EDT) Pathologist [facility] [place] Anaerobic Culture No anaerobes isolated at 5 days ALIZA 04/13/2025 7:21 AM EDT [facility] Tissue Lower limb structure / Unknown Collection / Unknown 04/07/2025 9:13 PM EDT 04/08/2025 4:54 AM EDT Jason Álvarez DO MICROBIOLOGY - GENERAL ORDERABLE S Final Result [facility]
[address] [place] [address], * Tissue / Bone Culture - Tissue, Leg, Right (04/07/2025 9:13 PM EDT) [facility] Tissue Culture No growth at 3 days ALIZA 04/11/2025 10:36 AM EDT [facility] Gram Stain Rare (1+) WBCs seen 04/11/2025 10:36 AM EDT [facility] Gram Stain No organisms seen 04/11/2025 10:36 AM EDT [facility] Tissue Structure of right lower limb / Unknown 04/07/2025 9:13 PM EDT 04/08/2025 4:54 AM EDT Sushil Dean Jr., MD MICROBIOLOGY - GENERAL ORDERABLES Final Result [facility]
[address] [place] [address], [facility]
[address] [place] [address], * (ABNORMAL) Wound Culture - Swab, Leg, Right (04/07/2025 9:07 PM EDT) Pathologist [facility] [place] Wound Culture Light growth (2+) Staphylococcus aureus, MRSA(A) ALIZA 04/10/2025 10:38 AM EDT [facility] Comment: Methicillin resistant Staphylococcus aureus, Patient may be an isolation risk. Gram Stain Few (2+) WBCs seen 04/10/2025 10:38 AM EDT [facility] Gram Stain No organisms seen 10:38 AM EDT [facility] Swab Structure of right lower limb [...] MD MICROBIOLOGY - GENERAL ORDERABLES Final Result [facility]
[address] [place] [address], [place] [phone] [facility]
[address] [place] [address], [place] [phone] * Anaerobic Culture - Swab, Leg, Right (04/07/2025 9:07 PM EDT) Anaerobic Culture No anaerobes isolated at 5 days ALIZA 04/13/2025 7:21 AM EDT [facility] Swab Structure of right lower limb / Unknown Collection / Unknown 04/07/2025 9:07 PM EDT 04/08/2025 4:36 AM EDT us Sushil Dean Jr., MD MICROBIOLOGY - GENERAL ORDERABLES Final Result [facility]
[address] [place] [address], * Heparin Anti-Xa (04/07/2025 9:10 AM EDT) [facility] Heparin Anti-Xa (UFH) 0.30 0.30 - 0.70 IU/ml 04/07/2025 10:12 AM EDT [facility] Blood Venipuncture / Unknown 04/07/2025 9:10 AM EDT 04/07/2025 9:38 AM EDT Una Perla PharmD LAB BLOOD ORDERABLES Final R esult [facility]
[address] [place] [address], * (ABNORMAL) CBC Auto Differential (04/07/2025 9:10 AM EDT) [facility] WBC 8.63 3.40 - 10.80 10*3/mm3 04/07/2025 9:50 AM EDT [facility] RBC 5.23 4.14 - 5.80 10*6/mm3 04/07/2025 9:50 AM EDT [facility] Hemoglobin 14.7 13.0 - 17.7 g/dL 04/07/2025 9:50 AM EDT [facility] Hematocrit 44.8 37.5 - 51.0 % 04/07/2025 9:50 AM EDT [facility] MCV 85.7 79.0 - 97.0 fL 04/07/2025 9:50 AM EDT [facility] MCH 28.1 26.6 - 33.0 pg 04/07/2025 9:50 AM EDT [facility] MCHC 32.8 31.5 - 35.7 g/dL 04/07/2025 9:50 AM EDT [facility] RDW 12.8 12.3 - 15.4 % 04/07/2025 9:50 AM [facility] RDW-SD 39.9 37.0 - 54.0 fl 04/07/2025 9:50 AM [facility] MPV 10.8 6.0 - 12.0 fL 04/07/2025 9:50 AM [facility] Platelets 149 140 - 450 10*3/mm3 04/07/2025 9:50 AM [facility] Neutrophil % 66.7 42.7 - 76.0 % 04/07/2025 9:50 AM [facility] Lymphocyte % 20.5 19.6 - 45.3 % 04/07/2025 9:50 AM [facility] Monocyte % 9.8 5.0 - 12.0 % 04/07/2025 9:50 AM [facility] Eosinophil % 2.1 0.3 - 6.2 % 04/07/2025 9:50 AM [facility] Basophil % 0.3 0.0 - 1.5 % 04/07/2025 9:50 AM [facility] Immature Grans % 0.6(H) 0.0 - 0.5 % 04/07/2025 9:50 AM [facility] Neutrophils, Absolute 5.75 1.70 - 7.00 10*3/mm3 04/07/2025 9:50 AM [facility] Lymphocytes, Absolute 1.77 0.70 - 3.10 10*3/mm3 04/07/2025 9:50 AM [facility] Monocytes, Absolute 0.85 0.10 - 0.90 10*3/mm3 04/07/2025 9:50 AM [facility] Eosinophils, Absolute 0.18 0.00 - 0.40 10*3/mm3 04/07/2025 9:50 AM [facility] Basophils, Absolute 0.03 0.00 - 0.20 10*3/mm3 04/07/2025 9:50 AM [facility] Immature Grans, Absolute 0.05 0.00 - 0.05 10*3/mm3 04/07/2025 9:50 AM EDT [facility] nRBC 0.0 0.0 - 0.2 /100 WBC 04/07/2025 9:50 AM EDT [facility] Blood Venipuncture / Unknown 04/07/2025 9:10 AM EDT 04/07/2025 9:38 AM EDT Jasonalfonso Álvarez LAB BLOOD ORDERABLES Final Resul t [facility]
[address] [place] [address], * (ABNORMAL) Basic Metabolic Panel (04/07/2025 9:10 AM EDT) Glucose 112(H) 65 - 99 mg/dL 04/07/2025 10:19 AM EDT [facility] BUN 13.1 6.0 - 20.0 mg/dL 04/07/2025 10:19 AM EDT [facility] Creatinine 0.77 0.76 - 1.27 mg/dL 04/07/2025 10:19 AM EDT [facility] Sodium 139 136 - 145 mmol/L 04/07/2025 10:19 AM EDT [facility] Potassium 4.2 3.5 - 5.2 mmol/L 04/07/2025 10:19 AM EDT [facility] Comment:Specimen hemolyzed. Result may be falsely elevated. Chloride 105 98 - 107 mmol/L 04/07/2025 10:19 AM EDT [facility] CO2 24.8 22.0 - 29.0 mmol/L 04/07/2025 10:19 AM EDT [facility] Calcium 8.6 8.6 - 10.5 mg/dL 04/07/2025 10:19 AM EDT [facility] BUN/Creatinine Ratio 17.0 7.0 - 25.0 04/07/2025 10:19 AM EDT [facility] Anion Gap 9.2 5.0 - 15.0 mmol/L 04/07/2025 10:19 AM EDT [facility] eGFR 113.2 >60.0 mL/min/1.7 3 04/07/2025 10:19 AM EDT [facility] Blood Venipuncture / Unknown 04/07/2025 9:10 AM EDT 04/07/2025 9:38 AM EDT Narrative [facility] - 04/07/2025 10:19 AM EDT GFR [...] BLOOD ORDERABLES Final Resul t [facility]
[address] [place] [address], * MRI Tibia Fibula Right With & [...] [place] 04/07/2025 9:58 AM EDT Workstation ID: [id number] Narrative 04/07/2025 9:58 AM EDT MRI TIBIA [...] [place] 04/07/2025 9:58 AM EDT Workstation ID: [id number] Sushil Dean Jr., MD IM MRI ORDERABLES Mary Beth l Result * Heparin Anti-Xa (04/07/2025 1:42 AM EDT) [facility] Heparin Anti-Xa (UFH) 0.38 0.30 - 0.70 IU/ml 04/07/2025 2:14 AM EDT [facility] Blood Venipuncture / Unknown 04/07/2025 1:42 AM EDT 04/07/2025 1:54 AM EDT Chelsie Turpin [facility] LAB BLOOD ORDERABLES Final R esult [facility]
[address] [place] [address], * Heparin Anti-Xa (04/06/2025 7:16 PM EDT) [facility] Heparin Anti-Xa (UFH) 0.33 0.30 - 0.70 IU/ml 04/06/2025 7:50 PM EDT [facility] Blood Venipuncture / Unknown 04/06/2025 7:16 PM EDT 04/06/2025 7:35 PM EDT Cherri Beatty RP LAB BLOOD ORDERABLES Final Res ult Performing Organization Address City/[facility]/ZIP Co de Phone Number [facility]
[address] [place] [address], * Potassium (04/06/2025 7:16 PM EDT) Potassium 4.0 3.5 - 5.2 mmol/L 04/06/2025 7:53 PM EDT [facility] Blood Venipuncture / Unknown 04/06/2025 7:16 PM EDT 04/06/2025 7:35 PM EDT Jason Álvarez DO LAB BLOOD ORDERABLES Final Resul t Performing Organization Address [facility] de Phone Number [facility]
[address] [place] [address], * (ABNORMAL) Heparin Anti-Xa (04/06/2025 12:36 PM EDT) Heparin Anti-Xa (UFH) 0.24(L) 0.30 - 0.70 IU/ml 04/06/2025 1:23 PM EDT [facility] Blood Venipuncture / Unknown 04/06/2025 12:36 PM EDT 04/06/2025 1:07 PM EDT Una LundbergD LAB BLOOD ORDERABLES Final R esult Performing Organization Address [facility] Co de Phone Number [facility]
[address] [place] [address], * (ABNORMAL) Heparin Anti-Xa (04/06/2025 3:42 AM EDT) Heparin Anti-Xa (UFH) 0.25(L) 0.30 - 0.70 IU/ml 04/06/2025 5:30 AM EDT [facility] Blood Venipuncture / Unknown 04/06/2025 3:42 AM EDT 04/06/2025 4:59 AM EDT Chelsie Turpin [facility] LAB BLOOD ORDERABLES Final R esult [facility]
[address] [place] [address], * (ABNORMAL) Basic Metabolic Panel (04/06/2025 3:42 AM EDT) Pathologist [facility] Glucose 94 65 - 99 mg/dL 04/06/2025 5:59 AM EDT [facility] BUN 12.8 6.0 - 20.0 mg/dL 04/06/2025 5:59 AM EDT [facility] Creatinine 0.80 0.76 - 1.27 mg/dL 04/06/2025 5:59 AM EDT [facility] Sodium 138 136 - 145 mmol/L 04/06/2025 5:59 AM EDT [facility] Potassium 3.6 3.5 - 5.2 mmol/L 04/06/2025 5:59 AM EDT [facility] Chloride 103 98 - 107 mmol/L 04/06/2025 5:59 AM EDT [facility] CO2 24.2 22.0 - 29.0 mmol/L 04/06/2025 5:59 AM EDT [facility] Calcium 8.0(L) 8.6 - 10.5 mg/dL 04/06/2025 5:59 AM EDT [facility] BUN/Creatinine Ratio 16.0 7.0 - 25.0 04/06/2025 5:59 AM EDT [facility] Anion Gap 10.8 5.0 - 15.0 mmol/L 04/06/2025 5:59 AM EDT [facility] eGFR 111.9 >60.0 mL/min/1.7 3 04/06/2025 5:59 AM EDT [facility] Blood Venipuncture / Unknown 04/06/2025 3:42 AM EDT 04/06/2025 5:20 AM EDT [facility] - 04/06/2025 5:59 AM [...] BLOOD ORDERABLES Final Resul t [facility]
[address] [place] [address], * (ABNORMAL) CBC Auto Differential (04/06/2025 3:41 AM EDT) WBC 10.86(H) 3.40 - 10.80 10*3/mm3 04/06/2025 5:04 AM EDT [facility] RBC 5.08 4.14 - 5.80 10*6/mm3 04/06/2025 5:04 AM EDT [facility] Hemoglobin 13.9 13.0 - 17.7 g/dL 04/06/2025 5:04 AM EDT [facility] Hematocrit 43.7 37.5 - 51.0 % 04/06/2025 5:04 AM EDT [facility] MCV 86.0 79.0 - 97.0 fL 04/06/2025 5:04 AM [facility] MCH 27.4 26.6 - 33.0 pg 04/06/2025 5:04 AM [facility] MCHC 31.8 31.5 - 35.7 g/dL 04/06/2025 5:04 AM [facility] RDW 12.8 12.3 - 15.4 % 04/06/2025 5:04 AM [facility] RDW-SD 40.0 37.0 - 54.0 fl 04/06/2025 5:04 AM [facility] MPV 11.7 6.0 - 12.0 fL 04/06/2025 5:04 AM [facility] Platelets 115(L) 140 - 450 10*3/mm3 04/06/2025 5:04 AM [facility] Neutrophil % 65.3 42.7 - 76.0 % 04/06/2025 5:04 AM [facility] Lymphocyte % 20.5 19.6 - 45.3 % 04/06/2025 5:04 AM [facility] Monocyte % 11.8 5.0 - 12.0 % 04/06/2025 5:04 AM [facility] Eosinophil % 1.8 0.3 - 6.2 % 04/06/2025 5:04 AM [facility] Basophil % 0.3 0.0 - 1.5 % 04/06/2025 5:04 AM [facility] Immature Grans % 0.3 0.0 - 0.5 % 04/06/2025 5:04 AM [facility] Neutrophils, Absolute 7.09(H) 1.70 - 7.00 10*3/mm3 04/06/2025 5:04 AM [facility] Lymphocytes, Absolute 2.23 0.70 - 3.10 10*3/mm3 04/06/2025 5:04 AM [facility] Monocytes, Absolute 1.28(H) 0.10 - 0.90 10*3/mm3 04/06/2025 5:04 AM EDT [facility] Eosinophils, Absolute 0.20 0.00 - 0.40 10*3/mm3 04/06/2025 5:04 AM EDT [facility] Basophils, Absolute 0.03 0.00 - 0.20 10*3/mm3 04/06/2025 5:04 AM EDT [facility] Immature Grans, Absolute 0.03 0.00 - 0.05 10*3/mm3 04/06/2025 5:04 AM EDT [facility] nRBC 0.0 0.0 - 0.2 /100 WBC 04/06/2025 5:04 AM EDT [facility] Blood Venipuncture / Unknown 04/06/2025 3:41 AM EDT 04/06/2025 4:58 AM EDT Jason Álvarez DO LAB BLOOD ORDERABLES Final Resul t Performing Organization Address City/[facility]/ZIP Co de Phone Number [facility]
[address] [place] [address], [place] [phone] * Heparin Anti-Xa (04/05/2025 8:43 PM EDT) [facility] Heparin Anti-Xa (UFH) 0.38 0.30 - 0.70 IU/ml 04/05/2025 9:09 PM EDT [facility] Blood Venipuncture / Unknown 04/05/2025 8:43 PM EDT 04/05/2025 8:55 PM EDT us Cherri Beatty [facility] LAB BLOOD ORDERABLES Final Res ult Performing Organization Address City/[facility]/ZIP Co de Phone Number [facility]
[address] [place] [address], [place] [phone] * CK (04/05/2025 12:15 PM EDT) Pathologist [facility] Creatine Kinase 140 20 - 200 U/L 04/05/2025 1:31 PM EDT [facility] Blood Venipuncture / Unknown 04/05/2025 12:15 PM EDT 04/05/2025 1:03 PM EDT Carlton Mead MD LAB BLOOD ORDERABLES Final R esult Performing Organization Address City/[facility]/ZIP Co de Phone Number [facility]
[address] [place] [address], * (ABNORMAL) Heparin Anti-Xa (04/05/2025 12:15 PM EDT) Heparin Anti-Xa (UFH) 0.17(L) 0.30 - 0.70 IU/ml 04/05/2025 1:21 PM EDT [facility] Blood Venipuncture / Unknown 04/05/2025 12:15 PM EDT 04/05/2025 1:04 PM EDT Una Perla PharmD LAB BLOOD ORDERABLES Final R esult [facility]
[address] [place] [address], * (ABNORMAL) aPTT (04/05/2025 3:54 AM EDT) PTT 35.3(L) 60.0 - 90.0 seconds 04/05/2025 4:31 AM EDT [facility] Blood Venipuncture / Unknown 04/05/2025 3:54 AM EDT 04/05/2025 4:15 AM EDT Narrative [facility] - 04/05/2025 4:31 AM EDT PTT = The equivalent PTT values for the therapeutic range of heparin levels at 0.3 to 0.5 U/ml are 60 to 70 seconds. Una Perla PharmD LAB BLOOD ORDERABLES Final R esult [facility]
[address] [place] [address], * Heparin Anti-Xa (04/05/2025 3:54 AM EDT) Pathologist [facility] Heparin Anti-Xa (UFH) 0.30 0.30 - 0.70 IU/ml 04/05/2025 4:32 AM EDT [facility] Blood Venipuncture / Unknown 04/05/2025 3:54 AM EDT 04/05/2025 4:15 AM EDT Una Kyriba [employer]D LAB BLOOD ORDERABLES Final R esult Performing Organization Address City/[facility]/ZIP Co de Phone Number [facility]
[address] [place] [address], * (ABNORMAL) CBC Auto Differential (04/05/2025 3:54 AM EDT) Pathologist [facility] WBC 11.18(H) 3.40 - 10.80 10*3/mm3 04/05/2025 4:20 AM EDT [facility] RBC 5.00 4.14 - 5.80 10*6/mm3 04/05/2025 4:20 AM EDT [facility] Hemoglobin 13.9 13.0 - 17.7 g/dL 04/05/2025 4:20 AM EDT [facility] Hematocrit 42.4 37.5 - 51.0 % 04/05/2025 4:20 AM EDT [facility] MCV 84.8 79.0 - 97.0 fL 04/05/2025 4:20 AM EDT [facility] MCH 27.8 26.6 - 33.0 pg 04/05/2025 4:20 AM EDT [facility] MCHC 32.8 31.5 - 35.7 g/dL 04/05/2025 4:20 AM [facility] RDW 12.9 12.3 - 15.4 % 04/05/2025 4:20 AM [facility] RDW-SD 39.7 37.0 - 54.0 fl 04/05/2025 4:20 AM [facility] MPV 10.2 6.0 - 12.0 fL 04/05/2025 4:20 AM [facility] Platelets 160 140 - 450 10*3/mm3 04/05/2025 4:20 AM [facility] Neutrophil % 73.5 42.7 - 76.0 % 04/05/2025 4:20 AM [facility] Lymphocyte % 14.0(L) 19.6 - 45.3 % 04/05/2025 4:20 AM [facility] Monocyte % 11.0 5.0 - 12.0 % 04/05/2025 4:20 AM [facility] Eosinophil % 0.8 0.3 - 6.2 % 04/05/2025 4:20 AM [facility] Basophil % 0.3 0.0 - 1.5 % 04/05/2025 4:20 AM [facility] Immature Grans % 0.4 0.0 - 0.5 % 04/05/2025 4:20 AM [facility] Neutrophils, Absolute 8.23(H) 1.70 - 7.00 10*3/mm3 04/05/2025 4:20 AM [facility] Lymphocytes, Absolute 1.56 0.70 - 3.10 10*3/mm3 04/05/2025 4:20 AM [facility] Monocytes, Absolute 1.23(H) 0.10 - 0.90 10*3/mm3 04/05/2025 4:20 AM [facility] Eosinophils, Absolute 0.09 0.00 - 0.40 10*3/mm3 04/05/2025 4:20 AM [facility] Basophils, Absolute 0.03 0.00 - 0.20 10*3/mm3 04/05/2025 4:20 AM EDT [facility] Immature Grans, Absolute 0.04 0.00 - 0.05 10*3/mm3 04/05/2025 4:20 AM EDT [facility] nRBC 0.0 0.0 - 0.2 /100 WBC 04/05/2025 4:20 AM EDT [facility] Blood Venipuncture / Unknown 04/05/2025 3:54 AM EDT 04/05/2025 4:16 AM EDT Una Perla PharmD LAB BLOOD ORDERABLES Final R esult [facility]
[address] [place] [address], * (ABNORMAL) Basic Metabolic Panel (04/05/2025 3:54 AM EDT) Glucose 152(H) 65 - 99 mg/dL 04/05/2025 4:40 AM EDT [facility] BUN 17.3 6.0 - 20.0 mg/dL 04/05/2025 4:40 AM EDT [facility] Creatinine 0.92 0.76 - 1.27 mg/dL 04/05/2025 4:40 AM EDT [facility] Sodium 136 136 - 145 mmol/L 04/05/2025 4:40 AM EDT [facility] Potassium 3.9 3.5 - 5.2 mmol/L 04/05/2025 4:40 AM EDT [facility] Chloride 103 98 - 107 mmol/L 04/05/2025 4:40 AM EDT [facility] CO2 24.0 22.0 - 29.0 mmol/L 04/05/2025 4:40 AM EDT [facility] Calcium 7.8(L) 8.6 - 10.5 mg/dL 04/05/2025 4:40 AM EDT [facility] BUN/Creatinine Ratio 18.8 7.0 - 25.0 04/05/2025 4:40 AM EDT [facility] Anion Gap 9.0 5.0 - 15.0 mmol/L 04/05/2025 4:40 AM EDT [facility] eGFR 105.2 >60.0 mL/min/1.7 3 04/05/2025 4:40 AM EDT [facility] Blood Venipuncture / Unknown 04/05/2025 3:54 AM EDT 04/05/2025 4:15 AM EDT [facility] - 04/05/2025 4:40 AM [...] LAB BLOOD ORDERABLES Final Re sult [facility]
[address] [place] [address], * (ABNORMAL) aPTT (04/05/2025 12:18 AM EDT) PTT 33.6(L) 60.0 - 90.0 seconds 04/05/2025 12:53 AM EDT [facility] Blood Venipuncture / Unknown 04/05/2025 12:18 AM EDT 04/05/2025 12:37 AM EDT [facility] - 04/05/2025 12:53 AM EDT PTT = The equivalent PTT values for the therapeutic range of heparin levels at 0.3 to 0.5 U/ml are 60 to 70 seconds. [employer] PharmD LAB BLOOD ORDERABLES Final R esult Performing Organization Address City/[facility]/ZIP Co de Phone Number [facility]
[address] [place] [address], * (ABNORMAL) Protime-INR (04/05/2025 12:18 AM EDT) Protime 15.9(H) 12.2 - 15.3 Seconds 04/05/2025 12:53 AM EDT [facility] INR 1.19(H) 0.89 - 1.12 04/05/2025 12:53 AM EDT [facility] Blood Venipuncture / Unknown 04/05/2025 12:18 AM EDT 04/05/2025 12:37 AM EDT [employer] PharmD LAB BLOOD ORDERABLES Final R esult Performing Organization Address [facility] Co de Phone Number [facility]
[address] [place] [address], * Heparin Anti-Xa (04/05/2025 12:18 AM EDT) Pathologist [facility] [place] Heparin Anti-Xa (UFH) 0.39 0.30 - 0.70 IU/ml 04/05/2025 12:54 AM EDT [facility] Blood Venipuncture / Unknown 04/05/2025 12:18 AM EDT 04/05/2025 12:37 AM EDT [employer] PharmD LAB BLOOD ORDERABLES Final R esult Performing Organization Address City/[facility]/ZIP Co de Phone Number [facility]
[address] [place] [address], * MRI Tibia Fibula Right With & [...] MD 04/04/2025 11:00 PM EDT Workstation ID: [id number] Narrative 04/04/2025 11:00 PM EDT MRI TIBIA [...] MD 04/04/2025 11:00 PM EDT Workstation ID: [id number] Leonora Shepherd MD IMG MRI ORDERABLES Final Resu lt * POC Creatinine (04/04/2025 2:49 PM EDT) Creatinine 1.10 0.60 - 1.30 mg/dL 04/07/2025 7:14 PM EDT [facility] Comment:Serial Number: [id number] 7Operator: [id number] Venous Blood 04/04/2025 2:49 PM EDT 04/07/2025 7:14 PM EDT Jason Álvarez DO POINT OF CARE TEST ORDERABLES Fi nal Result [facility]
[address] [place] [address], * (ABNORMAL) CBC Auto Differential (04/04/2025 2:47 PM EDT) [facility] WBC 12.72(H) 3.40 - 10.80 10*3/mm3 04/04/2025 2:56 PM EDT [facility] RBC 5.64 4.14 - 5.80 10*6/mm3 04/04/2025 2:56 PM EDT [facility] Hemoglobin 15.3 13.0 - 17.7 g/dL 04/04/2025 2:56 PM EDT [facility] Hematocrit 47.9 37.5 - 51.0 % 04/04/2025 2:56 PM EDT [facility] MCV 84.9 79.0 - 97.0 fL 04/04/2025 2:56 PM EDT [facility] MCH 27.1 26.6 - 33.0 pg 04/04/2025 2:56 PM EDT [facility] MCHC 31.9 31.5 - 35.7 g/dL 04/04/2025 2:56 PM EDT [facility] RDW 13.1 12.3 - 15.4 % 04/04/2025 2:56 PM EDT [facility] RDW-SD 40.3 37.0 - 54.0 fl 04/04/2025 2:56 PM EDT [facility] MPV 9.4 6.0 - 12.0 fL 04/04/2025 2:56 PM EDT [facility] Platelets 232 140 - 450 10*3/mm3 04/04/2025 2:56 PM EDT [facility] Neutrophil % 74.9 42.7 - 76.0 % 04/04/2025 2:56 PM EDT [facility] Lymphocyte % 13.1(L) 19.6 - 45.3 % 04/04/2025 2:56 PM EDT [facility] Monocyte % 11.2 5.0 - 12.0 % 04/04/2025 2:56 PM EDT [facility] Eosinophil % 0.4 0.3 - 6.2 % 04/04/2025 2:56 PM EDT [facility] Basophil % 0.2 0.0 - 1.5 % 04/04/2025 2:56 PM EDT [facility] Immature Grans % 0.2 0.0 - 0.5 % 04/04/2025 2:56 PM EDT [facility] Neutrophils, Absolute 9.52(H) 1.70 - 7.00 10*3/mm3 04/04/2025 2:56 PM EDT [facility] Lymphocytes, Absolute 1.66 0.70 - 3.10 10*3/mm3 04/04/2025 2:56 PM EDT [facility] Monocytes, Absolute 1.43(H) 0.10 - 0.90 10*3/mm3 04/04/2025 2:56 PM EDT [facility] Eosinophils, Absolute 0.05 0.00 - 0.40 10*3/mm3 04/04/2025 2:56 PM EDT [facility] Basophils, Absolute 0.03 0.00 - 0.20 10*3/mm3 04/04/2025 2:56 PM EDT [facility] Immature Grans, Absolute 0.03 0.00 - 0.05 10*3/mm3 04/04/2025 2:56 PM EDT [facility] nRBC 0.0 0.0 - 0.2 /100 WBC 04/04/2025 2:56 PM EDT [facility] Blood Venipuncture / Unknown 04/04/2025 2:47 PM EDT 04/04/2025 2:52 PM EDT us Mario Crowley DO LAB BLOOD ORDERABLES Fin al Result [facility]
[address] [place] [address], * (ABNORMAL) C-reactive Protein (04/04/2025 2:47 PM EDT) C-Reactive Protein 8.57(H) 0.00 - 0.50 mg/dL 04/04/2025 3:26 PM EDT [facility] Blood Venipuncture / Unknown 04/04/2025 2:47 PM EDT 04/04/2025 2:52 PM EDT [facility] BLOOD ORDERABLES Fin al Result Performing Organization Address City/[facility]/ZIP Co de Phone Number [facility]
[address] [place] [address], * (ABNORMAL) Sedimentation Rate (04/04/2025 2:47 PM EDT) Pathologist [facility] Sed Rate 51(H) 0 - 15 mm/hr 04/04/2025 3:06 PM EDT [facility] Blood Venipuncture / Unknown 04/04/2025 2:47 PM EDT 04/04/2025 2:52 PM EDT [facility]roc[facility] BLOOD ORDERABLES Fin al Result Performing Organization Address City/[facility] Co de Phone Number [facility]
[address] [place] [address], * Comprehensive Metabolic Panel (04/04/2025 2:47 PM EDT) Pathologist [facility] [place] Glucose 90 65 - 99 mg/dL 04/04/2025 3:26 PM EDT [facility] BUN 18.3 6.0 - 20.0 mg/dL 04/04/2025 3:26 PM EDT [facility] Creatinine 0.94 0.76 - 1.27 mg/dL 04/04/2025 3:26 PM EDT [facility] Sodium 136 136 - 145 mmol/L 04/04/2025 3:26 PM EDT [facility] Potassium 3.8 3.5 - 5.2 mmol/L 04/04/2025 3:26 PM EDT [facility] Chloride 100 98 - 107 mmol/L 04/04/2025 3:26 PM EDT [facility] CO2 25.3 22.0 - 29.0 mmol/L 04/04/2025 3:26 PM EDT [facility] Calcium 8.6 8.6 - 10.5 mg/dL 04/04/2025 3:26 PM T [facility] Total Protein 7.3 6.0 - 8.5 g/dL 04/04/2025 3:26 PM EDT [facility] Albumin 4.1 3.5 - 5.2 g/dL 04/04/2025 3:26 PM T [facility] ALT (SGPT) 26 1 - 41 U/L 04/04/2025 3:26 PM [facility] AST (SGOT) 25 1 - 40 U/L 04/04/2025 3:26 PM T [facility] Alkaline Phosphatase 106 39 - 117 U/L 04/04/2025 3:26 PM T [facility] Total Bilirubin 1.0 0.0 - 1.2 mg/dL 04/04/2025 3:26 PM T [facility] Globulin 3.2 gm/dL 04/04/2025 3:26 PM [facility] Comment:Calculated Result A/G Ratio 1.3 g/dL 04/04/2025 3:26 PM [facility] BUN/Creatinine Ratio 19.5 7.0 - 25.0 04/04/2025 3:26 PM [facility] Anion Gap 10.7 5.0 - 15.0 mmol/L 04/04/2025 3:26 PM [facility] eGFR 102.5 >60.0 mL/min/1.7 3 04/04/2025 3:26 PM [facility] Blood Venipuncture / Unknown 04/04/2025 2:47 PM EDT 04/04/2025 2:52 PM EDT [facility] - 04/04/2025 3:26 PM EDT [...] BLOOD ORDERABLES Fin al Result [facility]
[address] [place] [address], documented in this encounter Visit Diagnoses Diagnosis [...] Salazar, KELL)1943 (Given - Provider: Anahy Marcelino, DIRECTOR OF SECURITY)[id number] (Canceled Entry - Provider: Anahy Marcelino DIRECTOR OF SECURITY - Comment: previously given) 0837 (Given - [...] Shirley Hart, LU)2030 (Given - Provider: Alberto Diloln RN) 100 (Given - Provider: Marguerite Wakefield, [...] Continuous Medication Order 04/09/2025 04/10/2025 04/11/2025 heparin 14555 units/250 mL (100 units/mL) in 0.45 % [...] documented as of this encounter Care Teams Retread Operator Relationship Specialty Start Date End Date Provider, [place] [address] PCP - General 05/09/23 documented as of this encounter
--- OUTSIDE RECORDS SUMMARY | 2025-04-07 20:36 | XMS_ITS | Encounter Summary ---
Author Organization [facility] Address [address] [place] [address] Care Team Providers Care Dispatch Clerk Name Role Phone Provider, No Known Primary Care Provider Unavail able Reason for Visit * Auth/Cert Specialty Diagnoses / Procedures Referred By Bulmaro muniz Referred To Contact Diagnoses Right BKA infection Referral ID Status Reason Start Date Expiration Date Visits Re quested Visits Authorized [id number] 1 1 Encounter Details Date Type Department Care Team (Late st Contact Info) Description 04/07/2025 8:36 PM EDT Anesthesia Event [facility] OR [address] [place] [address] Luci Alonso DO [address] [place] [address] Anesthesia Record Procedure Summary Procedure Name Responsible [...] 0.6 oz pur e alcohol) [facility] Utilities Answer Date Recorded In the past 12 months has [employer], gas, oil, or water [employer] threatened to shut off services in your [...] Not on file Preferred Language Citizen Of [place] 04/07/2025 Sex and Gender Information Value Date [...] OR Notes * Anesthesia Postprocedure Evaluation - Lcui Alonso DO - 04/07/2025 9:50 PM EDT [...] PACU on O2NC, breathing comfortably. Report to SECURITY COORDINATOR at bedside. VSS. * Anesthesia Procedure [...] Musculoskeletal Abdominal Substance History - negative use CLINICAL MANAGER Other ROS/Med Hx Other: Eliquis 04/04/25 [...] been obtained with: patient. Plan discussed with HEEL PRICKER. CODE STATUS: Code Status (Patient has no [...] documented as of this encounter Care Teams Dispatch Clerk Relationship Specialty Start Date End Date Provider, No Known [facility] [place] [address] PCP - General 05/09/23 documented as of this encounter
--- OUTSIDE RECORDS SUMMARY | 2025-04-08 14:45 | XMS_ITS | Encounter Summary ---
[facility] Address [address] [place] [address] Care Team Providers Care Brand Development Manager Name Role Phone Provider, No Known Primary Care Provider Unavail able Reason for Visit * Reason Comments Leg Swelling * Auth/Cert Specialty Diagnoses / Procedures Referred By Contac t Referred To Contact Diagnoses Right BKA infection Referral ID Status Reason Start Date Expiration Date Visits Re quested Visits Authorized [id number] 1 1 Encounter Details Date Type Department Care Team (Late st Contact Info) Description 04/08/2025 2:45 PM EDT - 04/08/2025 4:04 PM EDT Surgery [facility] OR [address] [place] [address] Sushil Dean Jr., MD [address] [place] [address] [address] [place] [phone] LEG DEBRIDEMENT AND IRRIGATION Social History Tobacco Use Types Packs/Day Years Used Date Smoking Tobacco: Never Smokeless Tobacco: Never Tobacco Cessation:Counseling Given: Not Answered Alcohol Use Standard Drinks/Week Comments Not Currently 0 (1 standard drink = 0.6 oz pur e alcohol) [facility] Utilities Answer Date Recorded In the past 12 months has [employer] electric, gas, oil, or water company [...] or training? Not on file Preferred Language Slovenian 04/07/2025 Sex and Gender Information Value Date [...] 2:25 PM EDT Cherri Grimm RN * [place] Suicide Severity Rating Scale (Screener/Recent Self-Report) Question [...] Date/Time Wound Culture - Swab, Leg, Right [[id number]] (Abnormal) (Susceptibility) Collected: 04/07/252106 Lab Status: Final [...] Units Date/Time FL C Arm During Surgery [[id number]] Resulted: 04/07/252137 Updated: 04/07/252137 Narrative: This procedure was auto-finalized with no dictation required. MRI Tibia Fibula Right With & Without Contrast [[id number]] Collected: 04/07/25 0938 Updated: 04/07/25 1001 Narrative: [...] Buenrostro 04/07/2025 9:58 AM EDT Workstation ID: [id number] MRI Tibia Fibula Right With & Without Contrast [[id number]] Collected: 04/04/252256 Updated: 04/04/252302 Narrative: MRI TIBIA [...] represent a small area of phlegmonous change ([id number] image 10) measuring approximately 1.6 cm which [...] MD 04/04/2025 11:00 PM EDT Workstation ID: [id number] Pending Labs Order Current Status Fungus Culture [...] on Discharge: 48 minutes Electronically signed by oRsario Hill APRN, 04/11/25, 11:12 AM EDT. Cosigned by Jadyn Richardson DO at 04/11/2025 3:42 PM EDT Associated attestation - Jadyn Richardson DO - 04/11/2025 3:42 PM EDT I have reviewed this documentation and agree. * Omar Zavala RN - 04/10/2025 4:29 PM EDT Images from the original note were not included. Won Dennis (44 y.o. Male) Date of 1980 Social Security Number [id number] [place] [address] [place] [address] Amish Unknown Marital Status Unknown Admission Date 04/04/2025 Admission Type Emergency Admitting Provider Jadyn Richardson DO Attending Provider Jadyn Richardson DO Department, Room/Bed [facility] 5G, S565/1 Discharge Date Discharge Disposition Discharge Destination Attending Provider: Jadyn Richardson DO Allergies: Ceftin [Cefuroxime], Keflex [Cephalexin], Latex Isolation: None Infection: MRSA (05/11/23) Code Status: CPR Ht: 180.3 cm (71 ) Wt: 134 kg (295 lb) Admission Cmt: None 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 Insurance as of 04/04/2025 Primary Coverage Payor Plan Insurance Group Employer/Plan Group [place] [id number] Payor Plan Address Payor Plan Phone Number Payor Plan Fax Number Effective Dates [employer] [address] [address] 08/10/2023 - None Entered Formerly [facility] [address] Subscriber Name Subscriber Date Member ID WON DENNIS 1980 [id number] Emergency Contacts International Nurse (Rel.) Home Phone Work Phone Mobile Phone Avril Dennis (Spouse) -- -- [phone] Robert Hackett (Relative) -- -- [phone] [facility] 5G [address] [facility] [address] Patient: ROOM: [facility] Won Dennis [address] 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) Ordering Provider: Mario Crowley, DO [...] Units Date/Time FL C Arm During Surgery [[id number]] Resulted: 04/07/252137 Updated: 04/07/252137 Narrative: This procedure was auto-finalized with no dictation required. MRI Tibia Fibula Right With & Without Contrast [[id number]] Collected: 04/07/2538 Updated: 04/07/25 1001 Narrative: MRI [...] Buenrostro 04/07/2025 9:58 AM EDT Workstation ID: [id number] Impression: Recurrent Right BKA stump abscess/cellulitis- this [...] discussed his disposition with the pharmacist at [facility] today. I will sign off Outpatient orders: 1. Outpatient intravenous antibiotic therapy: Daptomycin 800 mg IV daily to be supplied by [facility] 2. Home health to perform weekly PICC [...] Date/Time Wound Culture - Swab, Leg, Right [[id number]] (Abnormal) (Susceptibility) Collected: 04/07/252106 Lab Status: Final [...] Row Name 04/06/25 1143 Sit-Stand Transfer Sit-Stand Traill (Transfers) modified independence - Comment, (Sit-Stand Transfer) Pt stood from recliner. Not holding onto walker, pt able to pull his pants up while balancing on his one leg. -LM Row Name 04/06/25 1143 Gait/Stairs (Locomotion) Traill Level (Gait) modified independence - Distance in [...] Motion bilateral lower extremity ROM WFL -LM [facility] Name 04/06/25 1145 Strength Comprehensive (MMT) General Manual Muscle Testing (MMT) Assessment no strength deficits identified BLEs -LM [facility] Name 04/06/25 1145 Balance Balance Assessment [...] home at d/c. PT signing off. -LM [facility] Name 04/06/25 1146 Therapy Assessment/Plan (PT) Criteria for Skilled Interventions Met (PT) no;no problems identified which require skilled intervention -LM Therapy Frequency (PT) evaluation only -LM Predicted Duration of Therapy Intervention (PT) Eval Only -LM [facility] Name 04/06/25 1146 Vital Signs Pretreatment Heart Rate (beats/min) 86 -LM Posttreatment Heart Rate (beats/min) 96 -LM Pre SpO2 (%) 95 -LM O2 Delivery Pre Treatment room air -LM Post SpO2 (%) 96 -LM O2 Delivery Post Treatment room air -LM Pre Patient Position Sitting -LM Post Patient Position Sitting -LM [facility] Name 04/06/25 1146 Positioning and Restraints [...] Nurse Physical Therapy Education Title: PT OT TAPE RULES PRINTING 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 Therapies (Done) Topic: Physical Therapy (Done) Point: Mobility training (Done) Learning Progress Summary Patient Acceptance, E, VU,DU by at 04/06/2025 1147 Point: Precautions (Done) Learning Progress Summary Patient Acceptance, E, VU,DU by at 04/06/2025 1147 User Cabrera Initials Effective Dates Name Provider Type [facility] 01/24/25 - Susan Cavazos, PT Physical [...] Description Service Date Service Provider Modifiers Qty [id number] PT EVAL LOW COMPLEXITY 3 04/06/2025 Susan [...] mg Daily 04/05/2025 -- Route: Oral heparin 84069 units/250 mL (100 units/mL) in 0.45 % [...] 22 [facility] [address], [address] [facility], [address] Please schedule at [phone] VONDA Garcia 04/11/25 08:32 EDT Cosigned by [...] Date/Time Wound Culture - Swab, Leg, Right [[id number]] (Abnormal) (Susceptibility) Collected: 04/07/252106 Lab Status: Final [...] mg Daily 04/05/2025 -- Route: Oral heparin 85364 units/250 mL (100 units/mL) in 0.45 % [...] 22 [facility] [address], [address] [facility], [address] Please schedule at [phone] VONDA Garcia 04/10/25 09:01 EDT Cosigned by Sushil Dean Jr., MD at 04/19/2025 10:33 AM EDT Associated attestation - Sushil Dean Jr., MD - 04/19/2025 10:33 AM EDT I have reviewed this documentation and agree. * Carlton Mead MD - 04/10/2025 7:38 AM EDT Images from the original note were not included. INFECTIOUS DISEASE Progress Note Won Dennis 1980 [id number] Date of Consult: 04/10/2025 Admission Date: 04/04/2025 [...] IRRIGATION; Surgeon: Sushil Dean Jr., MD; Location: [facility] OR; Service: Orthopedics; Laterality: Right; PLACEMENT OF WOUND VAC Right 04/07/2025 Procedure: WOUND VACUUM ASSISTED CLOSURE; Surgeon: Sushil Dean Jr., MD; Location: [facility] OR; Service: Orthopedics; Laterality: Right; WOUND CLOSURE [...] Jr., MD, 20 mg at 04/09/25906 heparin 24358 units/250 mL (100 units/mL) in 0.45 % [...] Units Date/Time FL C Arm During Surgery [[id number]] Resulted: 04/07/252137 Updated: 04/07/252137 Narrative: This procedure was auto-finalized with no dictation required. MRI Tibia Fibula Right With & Without Contrast [[id number]] Collected: 04/07/25937 Updated: 04/07/25 100 Narrative: MRI [...] Buenrostro 04/07/2025 9:58 AM EDT Workstation ID: [id number] Impression: Recurrent Right BKA stump abscess/cellulitis- this [...] discussed his disposition with the pharmacist at [facility] today. I will sign off Outpatient orders: 1. Outpatient intravenous antibiotic therapy: Daptomycin 800 mg IV daily to be supplied by [facility] 2. Home health to perform weekly PICC line dressing changes with a Biopatch or Tegaderm CHG gel dressing 3. CBC, CMP, ESR, CRP, and CPK weekly-forward results to Dr. Rubens Torres 4. Follow-up with Dr. Rubens Torres in the next 1-2 weeks 5. Home health orders to be forward to to Dr. Ruebns Torres This visit included the following complex service elements: Complex medical decision-making associated with antimicrobial prescribing. In-depth chart review with high level synthesis for complex diagnoses. Managed infection treatment protocol associated with transitions of care for this complex patient. Carlton Mead MD 04/10/2025 07:38 EDT * Larisa Hamilton [facility] - 04/10/2025 7:17 AM EDT [...] Date/Time Wound Culture - Swab, Leg, Right [[id number]] (Abnormal) Collected: 04/07/252106 Lab Status: Preliminary result [...] DO 04/09/25 * Larisa Hamilton [facility] - 04/09/2025 11:36 AM EDT [...] -- Admin Instructions: Open Order & Select [facility] Electrolyte Replacement Protocol Algorithm to [...] mg Daily 04/05/2025 -- Route: Oral heparin 10300 units/250 mL (100 units/mL) in 0.45 % [...] -- Admin Instructions: Open Order & Select [facility] Electrolyte Replacement Protocol Algorithm to [...] radiographs [facility] [address], [address] [facility], [address] Please schedule at [phone] VONDA Garcia 04/09/25 09:18 EDT Cosigned by Sushil Dean Jr., MD at 04/19/2025 10:33 AM EDT Associated attestation - Sushil Dean Jr., MD - 04/19/2025 10:33 AM EDT I have reviewed this documentation and agree. * Carlton Mead MD - 04/09/2025 8:25 AM EDT Images from the original note were not included. INFECTIOUS DISEASE Progress Note Won Dennis 1980 [id number] Date of Consult: 04/09/2025 Admission Date: 04/04/2025 [...] IRRIGATION; Surgeon: Sushil Dean Jr., MD; Location: [facility]; Service: Orthopedics; Laterality: Right; PLACEMENT [...] MD, 20 mg at 04/08/25 0800 heparin 68083 units/250 mL (100 units/mL) in 0.45 % [...] Units Date/Time FL C Arm During Surgery [[id number]] Resulted: 04/07/252137 Updated: 04/07/252137 Narrative: This procedure was auto-finalized with no dictation required. MRI Tibia Fibula Right With & Without Contrast [[id number]] Collected: 04/07/25 0938 Updated: 04/07/25 1001 Narrative: [...] Chitra 04/07/2025 9:58 AM EDT Workstation ID: [id number] Impression: Recurrent Right BKA stump abscess/cellulitis- this [...] Buenrostro 04/07/2025 9:58 AM EDT Workstation ID: [id number] I have personally reviewed the therapy plans: [...] DO 04/08/25 * Hamilton, Larisa, [facility] - 04/08/2025 11:48 AM EDT [...] -- Admin Instructions: Open Order & Select [facility] Electrolyte Replacement Protocol Algorithm to [...] mg Daily 04/05/2025 -- Route: Oral heparin 89907 units/250 mL (100 units/mL) in 0.45 % [...] INFECTIOUS DISEASE Progress Note Won Dennis 1980 [id number] Date of Consult: 04/08/2025 Admission Date: 04/04/2025 [...] Oral, Q6H PRN, 500 mg at 04/06/25 6044 OR acetaminophen (TYLENOL) 160 MG/5ML oral solution [...] Jr., MD, 20 mg at 04/07/25950 heparin 73468 units/250 mL (100 units/mL) in 0.45 % [...] vancomycin 2750 mg/500 mL 0.9% NS IVPB ([facility]) Ordering Provider: Mario Crowley, DO [...] Units Date/Time FL C Arm During Surgery [[id number]] Resulted: 04/07/252137 Updated: 04/07/252137 Narrative: This procedure was auto-finalized with no dictation required. MRI Tibia Fibula Right With & Without Contrast [[id number]] Collected: 04/07/25 0938 Updated: 04/07/25 1001 Narrative: [...] Buenrostro 04/07/2025 9:58 AM EDT Workstation ID: [id number] Impression: Right BKA stump cellulitis- s/p BKA with multiple surgical interventions with Known MRSA 05/09/2025. (Treated by ID in [facility] Dr. Torres treated him with [...] Buenrostro 04/07/2025 9:58 AM EDT Workstation ID: [id number] I have personally reviewed the therapy plans: [...] Preeti 04/07/25 * Larisa Hamilton, [facility] - 04/07/2025 11:56 AM EDT [...] INFECTIOUS DISEASE Progress Note Won Dennis 1980 [id number] Date of Consult: 04/07/2025 Admission Date: 04/04/2025 [...] MD, 20 mg at 04/06/25 0900 heparin 75214 units/250 mL (100 units/mL) in 0.45 % NaCl infusion, 18 Units/kg/hr, Intravenous, Titrated, Cherri Beatty, [facility], Last Rate: 24.1 mL/hr at 04/07/258, 18 Units/kg/hr at 04/07/25217 hydroCHLOROthiazide tablet 12.5 mg, 12.5 mg, Oral, Daily, Leonora Shephedr MD, 12.5 mg at 9 HYDROmorphone (DILAUDID) [...] With & Without Contrast - In process [[id number]] Resulted: 04/07/25828 Updated: 04/07/25828 This result has not been signed. Information might be incomplete. MRI Tibia Fibula Right With & Without Contrast [[id number]] Collected: 04/04/252256 Updated: 04/04/253 Narrative: MRI TIBIA [...] represent a small area of phlegmonous change ([id number] image 10) measuring approximately 1.6 cm which [...] MD 04/04/2025 11:00 PM EDT Workstation ID: [id number] Impression: Right BKA stump cellulitis- s/p BKA with multiple surgical interventions with Known MRSA 05/09/2025. (Treated by ID in [place] [facility] Dr. Torres treated him with [...] -- Admin Instructions: Open Order & Select [facility] Electrolyte Replacement Protocol Algorithm to [...] mg Daily 04/05/2025 -- Route: Oral heparin 08307 units/250 mL (100 units/mL) in 0.45 % [...] -- Admin Instructions: Open Order & Select [facility] Electrolyte Replacement Protocol Algorithm to [...] 06:07 EDT * Cherri Beatty [facility] - 04/06/2025 1:47 PM EDT [...] MD 04/04/2025 11:00 PM EDT Workstation ID: [id number] I have personally reviewed the therapy plans: [...] mg Daily 04/05/2025 -- Route: Oral heparin 62490 units/250 mL (100 units/mL) in 0.45 % [...] -- Admin Instructions: Open Order & Select [facility] Electrolyte Replacement Protocol Algorithm to [...] -- Admin Instructions: Open Order & Select [facility] Electrolyte Replacement Protocol Algorithm to [...] INFECTIOUS DISEASE follow up. Won Dennis 1980 [id number] Date of Consult: 04/06/2025 Admission Date: 04/04/2025 [...] MD, 20 mg at 04/06/25 0900 heparin 02878 units/250 mL (100 units/mL) in 0.45 % NaCl infusion, 18 Units/kg/hr, Intravenous, Titrated, Cherri Beatty [facility], Last Rate: 24.1 mL/hr at [...] Tibia Fibula Right With & Without Contrast [[id number]] Collected: 04/04/252256 Updated: 04/04/252302 Narrative: MRI TIBIA [...] represent a small area of phlegmonous change (wqkdky66 image 10) measuring approximately 1.6 cm which [...] MD 04/04/2025 11:00 PM EDT Workstation ID: [id number] Impression: Right BKA stump cellulitis- s/p BKA with multiple surgical interventions with Known MRSA 05/09/2025. (Treated by ID in [place] [facility] Dr. Torres treated him with [...] MD 04/04/2025 11:00 PM EDT Workstation ID: [id number] I have personally reviewed the therapy plans: [...] MD 04/04/2025 11:00 PM EDT Workstation ID: [id number] Assessment & Plan Assessment & Plan Won [...] 4FR PICC placed by Rhoda Bonner RN [facility], tip verified by 3CG see LDA. 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 male admitted to [facility] with Right BKA [...] was evaluated in the emergency department in [place], was discharged with instructions for follow-up. He [...] tablet by mouth Daily. 04/03/2025 Morning Lactobacillus-Inulin ([facility]) capsule Take 200 mg by mouth [...] MD 04/04/2025 11:00 PM EDT Workstation ID: [id number] Assessment: Right BKA infection 44-year-old male with [...] DISEASE CONSULT/INITIAL HOSPITAL VISIT Won Dennis 1980 [id number] Date of Consult: 04/05/2025 Admission Date: 04/04/2025 [...] Leonora Shepherd MD, 40 mg at 04/04/25 5370 sennosides-docusate (PERICOLACE) 8.6-50 MG per tablet 2 [...] MD, 20 mg at 04/05/25 09 heparin 04935 units/250 mL (100 units/mL) in 0.45 % [...] Leonora Shepherd MD, 10 mg at 04/04/25 0543 Pharmacy to Dose Heparin, , Not Applicable, [...] Tibia Fibula Right With & Without Contrast [[id number]] Collected: 04/04/252256 Updated: 04/04/252302 Narrative: MRI TIBIA [...] represent a small area of phlegmonous change (vqsxik11 image 10) measuring approximately 1.6 cm which [...] MD 04/04/2025 11:00 PM EDT Workstation ID: [id number] Impression: Right BKA stump cellulitis- s/p BKA with multiple surgical interventions with Known MRSA 05/09/2025. (Treated by ID in [place] [facility] Dr. Torres treated him with [...] incontinence pads utilized Goal Outcome Evaluation: * Susna Cavazos PT - 04/06/2025 11:22 AM EDT [...] infection POSTOP DIAGNOSIS: Same. PROCEDURE: Right Right 33250: Secondary closure below-knee amputation SURGEON: Sushil Dean MD OPERATIVE TEAM: Steam Pan Sponger: Susi Grullon RN Scrub Person: Mary Paredes Scrub Person Extra: Hortencia Toribio Other: Katt Gotti RN; Charis Neville RN ANESTHETIST: Anesthesiologist: Ulises Hoffman MD LIVESTOCK FEEDER: Stan Casillas CRNA Student Nurse Cad Engineer: Karol Albert SRNA ANESTHESIA: Choice ESTIMATED [...] CULTURE (Canceled) Sushil Dean Jr., MD 04/08/25 4772 Description: RIGHT LEG DEEP WOUND FOR CULTURE [...] PM EDT [facility], [place] [address] OPERATIVE REPORT PATIENT NAME: Won Dennis DATE OF : 1980 PREOP DIAGNOSIS: Right Right below knee amputation stump infection POSTOP DIAGNOSIS: Same. PROCEDURE: Right Right 96134: Incision and drainage of surgical site infection 51640: Debridement of skin, subcutaneous tissue, muscle 39577: Wound vacuum-assisted closure SURGEON: Sushil Dean MD OPERATIVE TEAM: Steam Pan Sponger: Anum Sanchez RN Scrub Person: Hortencia Toribio; Gerald Ivey CARPENTER AND JOINER: Anesthesiologist: Luci Alonso DO ANESTHESIA: General ESTIMATED [...] anterior aspect of the amputation site which is causing swelling to the area to the point we cannot get the prosthesis on, he notes some some redness swelling and soreness on the anterior lower part of the amputation stump and he was seen at an outside hospital yesterday. He had blood work CT scan ultrasound with a possible fluid collection. Hediscussed further with Dr. Dean who recommended he come to the emergency department for labs, imaging including an MRI for further assessment. Patient notes maybe a low-grade fever but has not had any recent antibiotic usage. Is been off the [...] this chart in the absence of a well logging captain mud analysis. No orders to display RADIOLOGY: [x] Radiologist's [...] 1:30 PM EDT Continued Stay Note DENIS[facility] Munugia Patient Name: Won Dennis Today's Date: 04/11/2025 Admit Date: 04/04/2025 Plan: Home with outpatient infusion. Discharge Plan Row Name 04/11/25 1155 Plan Plan Home with outpatient infusion. Final Discharge Disposition Code 01 - home or self-care Final Note Patient discharging today. He is discharging home with outpatient infusion at [facility]. He has an appointment with [facility] at 8:00 am tomorrow. They will do PICC line dressing changes. DEBRA has spoke with Dena at [facility] today multiple times to get setup due [...] with KELLEE and given themhis Medicare number [id number], she sent it to Admission. DEBRA spoke [...] changes and lab work. DEBRA called Dena [facility] they can accept patient and start him. He is known for their facility. The Facility will need to run it through his insurance first. CM faxed the orders over to [facility] at [phone]. CM will follow up with them tomorrow at [facility] to make sure they received the orders. [...] 04/09/2025 2:51 PM EDT Continued Stay Note [facility] Patient Name: Won Dennis Today's Date: 04/09/2025 Admit Date: 04/04/2025 Plan: Home Discharge Plan Row Name 04/09/25 1311 Plan Plan Home Patient/Family in Agreement with Plan yes Plan Comments CM spoke with patient at bedside today. Wheelchair from [employer] is at bedside. Patient getting PICC line [...] were not included. Discharge Planning Assessment [facility] Patient Name: Won Dennis Today's [...] family Patient/Family Anticipated Services at Transition manager caseband manager Anticipated family or friend will provide [...] for home. [facility] He is not current with home health services. PCP is Dr. Jordan. Insurance is [facility] [place]. Patient discharge plan is home with priavte transport. CM will follow for any discharge needs. Final Discharge Disposition Code 01 - home or self-care Continued Care and Services - Admitted Since 04/04/2025 No active coordination exists. Demographic Summary Row Name 04/07/25 1143 General Information Arrived From hospital Preferred Language Slovenian Functional Status Row Name 04/07/25 1143 Functional [...] 3:4 0 PM EDT Right BKA infection [facility] SEC ABDOMINAL WALL SUTURE EVISCERATION/DEHSN 04/08/2025 3:20 [...] AM EDT) [facility] WBC 7.87 3.40 - 10.80 10*3/mm3 04/11/2025 4:02 AM EDT [facility] RBC 4.70 4.14 - 5.80 10*6/mm3 04/11/2025 4:02 AM [facility] Hemoglobin 12.8(L) 13.0 - 17.7 g/dL 04/11/2025 4:02 AM [facility] Hematocrit 40.5 37.5 - 51.0 % 04/11/2025 4:02 AM [facility] MCV 86.2 79.0 - 97.0 fL 04/11/2025 4:02 AM [facility] MCH 27.2 26.6 - 33.0 pg 04/11/2025 4:02 AM [facility] MCHC 31.6 31.5 - 35.7 g/dL 04/11/2025 4:02 AM [facility] RDW 12.9 12.3 - 15.4 % 04/11/2025 4:02 AM [facility] RDW-SD 40.5 37.0 - 54.0 fl 04/11/2025 4:02 AM [facility] MPV 9.2 6.0 - 12.0 fL 04/11/2025 4:02 AM [facility] Platelets 267 140 - 450 10*3/mm3 [...] 0.0 - 1.5 % 04/[facility] Immature Grans % 0.4 0.0 - 0.5 % 04/11/2025 4:02 AM EDT [facility] Neutrophils, Absolute 4.69 1.70 - 7.00 10*3/mm3 04/11/2025 4:02 AM EDT [facility] Lymphocytes, Absolute 2.07 0.70 - 3.10 10*3/mm3 04/11/2025 4:02 AM EDT [facility] Monocytes, Absolute 0.73 0.10 - 0.90 10*3/mm3 04/11/2025 4:02 AM EDT [facility] Eosinophils, Absolute 0.32 0.00 - 0.40 10*3/mm3 04/11/2025 4:02 AM EDT [facility] Basophils, Absolute 0.03 0.00 - 0.20 10*3/mm3 04/11/2025 4:02 AM EDT [facility] Immature Grans, Absolute 0.03 0.00 - 0.05 10*3/mm3 04/11/2025 4:02 AM EDT [facility] nRBC 0.0 0.0 - 0.2 /100 WBC 04/11/2025 4:02 AM EDT [facility] Blood Venipuncture / Unknown 04/11/2025 3:40 AM EDT 04/11/2025 3:59 AM EDT us Sushil Dean Jr., MD LAB BLOOD ORDERABLES Fi nal Result [facility]
[address] [place] [address], * (ABNORMAL) Comprehensive Metabolic Panel (04/11/2025 3:40 AM EDT) Glucose 108(H) 65 - 99 mg/dL 04/11/2025 4:19 AM EDT [facility] BUN 12.5 6.0 - 20.0 mg/dL 04/11/2025 4:19 AM EDT [facility] Creatinine 0.68(L) 0.76 - 1.27 mg/dL 04/11/2025 4:19 AM [facility] Sodium 140 136 - 145 mmol/L 04/11/2025 4:19 AM [facility] Potassium 3.8 3.5 - 5.2 mmol/L 04/11/2025 4:19 AM [facility] Chloride 105 98 - 107 mmol/L 04/11/2025 4:19 AM [facility] CO2 28.2 22.0 - 29.0 mmol/L 04/11/2025 4:19 AM [facility] Calcium 8.2(L) 8.6 - 10.5 mg/dL 04/11/2025 4:19 AM [facility] Total Protein 6.1 6.0 - 8.5 g/dL 04/11/2025 4:19 AM [facility] Albumin 3.1(L) 3.5 - 5.2 g/dL 04/11/2025 4:19 AM [facility] ALT (SGPT) 52(H) 1 - 41 U/L 04/11/2025 4:19 AM [facility] AST (SGOT) 40 1 - 40 U/L 04/11/2025 4:19 AM [facility] Alkaline Phosphatase 99 39 - 117 U/L 04/11/2025 4:19 AM [facility] Total Bilirubin 0.2 0.0 - 1.2 mg/dL 04/11/2025 4:19 AM [facility] Globulin 3.0 gm/dL 04/11/2025 4:19 AM [facility] Comment:Calculated Result A/G Ratio 1.0 g/dL 04/11/2025 4:19 AM [facility] BUN/Creatinine Ratio 18.4 7.0 - 25.0 04/11/2025 4:19 AM [facility] Anion Gap 6.8 5.0 - 15.0 mmol/L 04/11/2025 4:19 AM [facility] eGFR 117.5 >60.0 mL/min/1.7 3 04/11/2025 4:19 AM EDT [facility] Blood Venipuncture [...] Hill APRN LAB BLOOD ORDERABLES Final Result [facility]
[address] [place] [address], * (ABNORMAL) CBC Auto Differential (04/10/2025 3:46 AM EDT) WBC 9.60 3.40 - 10.80 10*3/mm3 04/10/2025 3:56 AM EDT [facility] RBC 4.67 4.14 - 5.80 10*6/mm3 04/10/2025 3:56 AM EDT [facility] Hemoglobin 12.9(L) 13.0 - 17.7 g/dL 04/10/2025 3:56 AM EDT [facility] Hematocrit 40.1 37.5 - 51.0 % 04/10/2025 3:56 AM EDT [facility] MCV 85.9 79.0 - 97.0 fL 04/10/2025 3:56 AM EDT [facility] MCH 27.6 26.6 - 33.0 pg 04/10/2025 3:56 [facility] MCHC 32.2 31.5 - 35.7 g/dL 04/10/2025 3:56 AM EDT [facility] RDW 12.9 12.3 - 15.4 % 04/10/2025 3:56 AM EDT [facility] RDW-SD 40.5 37.0 - 54.0 fl 04/10/2025 3:56 AM EDT [facility] MPV 9.5 6.0 - 12.0 fL 04/10/2025 3:56 AM EDT [facility] Platelets 227 140 - 450 10*3/mm3 04/10/2025 3:56 AM EDT [facility] Neutrophil % 59.1 42.7 - 76.0 % 04/10/2025 3:56 AM [facility] Lymphocyte % 29.0 19.6 - 45.3 % 04/10/2025 3:56 AM EDT [facility] Monocyte % 8.1 5.0 - 12.0 % 04/10/2025 3:56 AM [facility] Eosinophil % 3.2 0.3 - 6.2 % 04/10/2025 3:56 AM [facility] Basophil % 0.4 0.0 - 1.5 % 04/10/2025 3:56 AM [facility] Immature Grans % 0.2 0.0 - 0.5 % 04/10/2025 3:56 AM [facility] Neutrophils, Absolute 5.67 1.70 - 7.00 10*3/mm3 04/10/2025 3:56 AM [facility] Lymphocytes, Absolute 2.78 0.70 - 3.10 10*3/mm3 04/10/2025 3:56 AM [facility] Monocytes, Absolute 0.78 0.10 - 0.90 10*3/mm3 04/10/2025 3:56 AM [facility] Eosinophils, Absolute 0.31 0.00 - 0.40 10*3/mm3 04/10/2025 3:56 AM EDT [facility] Basophils, Absolute 0.04 0.00 - 0.20 10*3/mm3 04/10/2025 3:56 AM EDT [facility] Immature Grans, Absolute 0.02 0.00 - 0.05 10*3/mm3 04/10/2025 3:56 AM EDT [facility] nRBC 0.0 0.0 - 0.2 /100 WBC 04/10/2025 3:56 AM EDT [facility] Blood Venipuncture / Unknown 04/10/2025 3:46 AM EDT 04/10/2025 3:53 AM EDT us Jason Álvarez DO LAB BLOOD ORDERABLES Final Resul t [facility]
[address] [place] [address], * (ABNORMAL) Basic Metabolic Panel (04/10/2025 3:46 AM EDT) Glucose 125(H) 65 - 99 mg/dL 04/10/2025 4:20 AM EDT [facility] BUN 15.9 6.0 - 20.0 mg/dL 04/10/2025 4:20 AM EDT [facility] Creatinine 0.77 0.76 - 1.27 mg/dL 04/10/2025 4:20 AM EDT [facility] Sodium 137 136 - 145 mmol/L 04/10/2025 4:20 AM EDT [facility] Potassium 3.9 3.5 - 5.2 mmol/L 04/10/2025 4:20 AM EDT [facility] Chloride 102 98 - 107 mmol/L 04/10/2025 4:20 AM EDT [facility] CO2 26.9 22.0 - 29.0 mmol/L 04/10/2025 4:20 AM EDT [facility] Calcium 7.9(L) 8.6 - 10.5 mg/dL 04/10/2025 4:20 AM EDT [facility] BUN/Creatinine Ratio 20.6 7.0 - 25.0 04/10/2025 4:20 AM EDT [facility] Anion Gap 8.1 5.0 - 15.0 mmol/L 04/10/2025 4:20 AM EDT [facility] eGFR 113.2 >60.0 mL/min/1.7 3 04/10/2025 4:20 AM EDT [facility] Blood Venipuncture / Unknown 04/10/2025 3:46 AM EDT 04/10/2025 3:52 AM EDT Narrative [facility] - 04/10/2025 4:20 AM [...] DO LAB BLOOD ORDERABLES Final Resul t [facility]
[address] [place] [address], * Heparin Anti-Xa (04/10/2025 3:46 AM EDT) Heparin Anti-Xa (UFH) 0.35 0.30 - 0.70 IU/ml 04/10/2025 4:23 AM EDT [facility] Blood Venipuncture / Unknown 04/10/2025 3:46 AM EDT 04/10/2025 3:53 AM EDT Larisa Hamilton [facility] LAB BLOOD ORDERABLES Final R esult [facility]
[address] [place] [address], * Heparin Anti-Xa (04/09/2025 10:05 AM EDT) Heparin Anti-Xa (UFH) 0.36 0.30 - 0.70 IU/ml 04/09/2025 11:12 AM EDT [facility] Blood Venipuncture / Unknown 04/09/2025 10:05 AM EDT 04/09/2025 10:47 AM EDT Larisa Hamilton [facility] LAB BLOOD ORDERABLES Final R esult Performing Organization Address City/[facility]/ZIP Co de Phone Number [facility]
[address] [place] [address], * (ABNORMAL) CBC Auto Differential (04/09/2025 4:18 AM EDT) WBC 11.00(H) 3.40 - 10.80 10*3/mm3 04/09/2025 4:50 AM EDT [facility] RBC 4.70 4.14 - 5.80 10*6/mm3 04/09/2025 4:50 AM EDT [facility] Hemoglobin 13.0 13.0 - 17.7 g/dL 04/09/2025 4:50 AM EDT [facility] Hematocrit 40.4 37.5 - 51.0 % 04/09/2025 4:50 AM EDT [facility] MCV 86.0 79.0 - 97.0 fL 04/09/2025 4:50 AM EDT [facility] MCH 27.7 26.6 - 33.0 pg 04/09/2025 4:50 AM EDT [facility] MCHC 32.2 31.5 - 35.7 g/dL 04/09/2025 4:50 AM EDT [facility] RDW 12.8 12.3 - 15.4 % 04/09/2025 4:50 AM [facility] RDW-SD 39.9 37.0 - 54.0 fl 04/09/2025 4:50 AM [facility] MPV 10.0 6.0 - 12.0 fL 04/09/2025 4:50 AM [facility] Platelets 211 140 - 450 10*3/mm3 04/09/2025 4:50 AM [facility] Neutrophil % 74.8 42.7 - 76.0 % 04/09/2025 4:50 AM [facility] Lymphocyte % 15.4(L) 19.6 - 45.3 % 04/09/2025 4:50 AM [facility] Monocyte % 8.5 5.0 - 12.0 % 04/09/2025 4:50 AM [facility] Eosinophil % 0.6 0.3 - 6.2 % 04/09/2025 4:50 AM [facility] Basophil % 0.4 0.0 - 1.5 % 04/09/2025 4:50 AM [facility] Immature Grans % 0.3 0.0 - 0.5 % 04/09/2025 4:50 AM [facility] Neutrophils, Absolute 8.23(H) 1.70 - 7.00 10*3/mm3 04/09/2025 4:50 AM [facility] Lymphocytes, Absolute 1.69 0.70 - 3.10 10*3/mm3 04/09/2025 4:50 AM [facility] Monocytes, Absolute 0.94(H) 0.10 - 0.90 10*3/mm3 04/09/2025 4:50 AM [facility] Eosinophils, Absolute 0.07 0.00 - 0.40 10*3/mm3 04/09/2025 4:50 AM [facility] Basophils, Absolute 0.04 0.00 - 0.20 10*3/mm3 04/09/2025 4:50 AM EDT [facility] Immature Grans, Absolute 0.03 0.00 - 0.05 10*3/mm3 04/09/2025 4:50 AM EDT [facility] nRBC 0.0 0.0 - 0.2 /100 WBC 04/09/2025 4:50 AM EDT [facility] Blood Venipuncture / Unknown 04/09/2025 4:18 AM EDT 04/09/2025 4:31 AM EDT Sushil Dean Jr., MD LAB BLOOD ORDERABLES Fi nal Result Performing Organization Address City/[facility]/ZIP Co de Phone Number [facility]
[address] [place] [address], * Heparin Anti-Xa (04/09/2025 4:18 AM EDT) Heparin Anti-Xa (UFH) 0.41 0.30 - 0.70 IU/ml 04/09/2025 4:53 AM EDT [facility] Blood Venipuncture / Unknown 04/09/2025 4:18 AM EDT 04/09/2025 4:31 AM EDT Una LundbergD LAB BLOOD ORDERABLES Final R esult [facility]
[address] [place] [address], * (ABNORMAL) Basic Metabolic Panel (04/09/2025 4:18 AM EDT) Glucose 147(H) 65 - 99 mg/dL 04/09/2025 5:33 AM EDT [facility] BUN 23.0(H) 6.0 - 20.0 mg/dL 04/09/2025 5:33 AM EDT [facility] Creatinine 1.15 0.76 - 1.27 mg/dL 04/09/2025 5:33 AM EDT [facility] Sodium 135(L) 136 - 145 mmol/L 04/09/2025 5:33 AM EDT [facility] Potassium 4.2 3.5 - 5.2 mmol/L 04/09/2025 5:33 AM EDT [facility] Chloride 100 98 - 107 mmol/L 04/09/2025 5:33 AM EDT [facility] CO2 26.0 22.0 - 29.0 mmol/L 04/09/2025 5:33 AM EDT [facility] Calcium 8.2(L) 8.6 - 10.5 mg/dL 04/09/2025 5:33 AM EDT [facility] BUN/Creatinine Ratio 20.0 7.0 - 25.0 04/09/2025 5:33 AM EDT [facility] Anion Gap 9.0 5.0 - 15.0 mmol/L 04/09/2025 5:33 AM EDT [facility] eGFR 80.5 >60.0 mL/min/1.7 3 04/09/2025 5:33 AM EDT [facility] Blood Venipuncture / Unknown 04/09/2025 4:18 AM EDT 04/09/2025 4:29 AM EDT [facility] - 04/09/2025 5:33 AM [...] MD LAB BLOOD ORDERABLES Fi nal Result [facility]
[address] [place] [address], * Wound Culture - Swab, Leg, Right (04/08/2025 3:40 PM EDT) Wound Culture No growth at 3 days ALIZA 04/11/2025 10:40 AM EDT [facility] Gram Stain Few (2+) WBCs seen 04/11/2025 10:40 AM EDT [facility] Gram Stain No organisms seen 04/11/2025 10:40 AM EDT [facility] Swab Structure of right lower limb / Unknown 04/08/2025 3:40 PM EDT 04/08/2025 8:05 PM EDT us Sushil Dean Jr., MD MICROBIOLOGY - GENERAL ORDERABLES Final Result Performing Organization Address City/[facility]/ZIP Co de Phone Number [facility]
[address] [place] [address], [facility]
[address] [place] [address], * Anaerobic Culture - Swab, Leg, Right (04/08/2025 3:40 PM EDT) Pathologist [facility] Anaerobic Culture No anaerobes isolated at 5 days ALIZA 04/13/2025 7:24 AM EDT [facility] Swab Structure of right lower limb / Unknown 04/08/2025 3:40 PM EDT 04/08/2025 8:05 PM EDT us Sushil Dean Jr., MD MICROBIOLOGY - GENERAL ORDERABLES Final Result Performing Organization Address City/[facility]/ZIP Co de Phone Number [facility]
[address] [place] [address], [place] [phone] * Scan Slide (04/08/2025 8:41 AM EDT) RBC Morphology Normal Normal 04/08/2025 11:02 AM EDT [facility] WBC Morphology Normal Normal 04/08/2025 11:02 AM EDT [facility] Platelet Estimate Adequate Normal 04/08/2025 11:02 AM EDT [facility] Clumped Platelets Present None Seen 04/08/2025 11:02 AM EDT [facility] Blood Venipuncture / Unknown 04/08/2025 8:41 AM EDT 04/08/2025 9:10 AM EDT Una Perla PharmD LAB BLOOD ORDERABLES Final R esult [facility]
[address] [place] [address], * (ABNORMAL) CBC Auto Differential (04/08/2025 8:41 AM EDT) WBC 10.07 3.40 - 10.80 10*3/mm3 04/08/2025 11:02 AM EDT [facility] RBC 5.01 4.14 - 5.80 10*6/mm3 04/08/2025 11:02 AM EDT [facility] Hemoglobin 14.0 13.0 - 17.7 g/dL 04/08/2025 11:02 AM EDT [facility] Hematocrit 42.7 37.5 - 51.0 % 04/08/2025 11:02 AM EDT [facility] MCV 85.2 79.0 - 97.0 fL 04/08/2025 11:02 AM EDT [facility] MCH 27.9 26.6 - 33.0 pg 04/08/2025 11:02 AM EDT [facility] MCHC 32.8 31.5 - 35.7 g/dL 04/08/2025 11:02 AM EDT [facility] RDW 12.6 12.3 - 15.4 % 04/08/2025 11:02 AM EDT [facility] RDW-SD 38.9 37.0 - [...] - 7.00 10*3/mm3 04/08/2025 11:02 AM [facility] Lymphocytes, Absolute 0.94 0.70 - 3.10 10*3/mm3 04/08/2025 11:02 AM [facility] Monocytes, Absolute 0.46 0.10 - 0.90 10*3/mm3 04/08/2025 11:02 AM [facility] Eosinophils, Absolute 0.03 0.00 - 0.40 10*3/mm3 04/08/2025 11:02 AM [facility] Basophils, Absolute 0.02 0.00 - 0.20 10*3/mm3 04/08/2025 11:02 AM [facility] Immature Grans, Absolute 0.05 0.00 - 0.05 10*3/mm3 04/08/2025 11:02 AM EDT [facility] nRBC 0.0 0.0 - 0.2 /100 WBC 04/08/2025 11:02 AM EDT [facility] Blood Venipuncture / Unknown 04/08/2025 8:41 AM EDT 04/08/2025 9:10 AM EDT Una Perla PharmD LAB BLOOD ORDERABLES Final R esult [facility]
[address] [place] [address], * (ABNORMAL) Basic Metabolic Panel (04/08/2025 8:41 AM EDT) Glucose 125(H) 65 - 99 mg/dL 04/08/2025 9:51 AM EDT [facility] BUN 13.2 6.0 - 20.0 mg/dL 04/08/2025 9:51 AM EDT [facility] Creatinine 0.69(L) 0.76 - 1.27 mg/dL 04/08/2025 9:51 AM EDT [facility] Sodium 136 136 - 145 mmol/L 04/08/2025 9:51 AM EDT [facility] Potassium 4.6 3.5 - 5.2 mmol/L 04/08/2025 9:51 AM EDT [facility] Chloride 102 98 - 107 mmol/L 04/08/2025 9:51 AM EDT [facility] CO2 23.5 22.0 - 29.0 mmol/L 04/08/2025 9:51 AM EDT [facility] Calcium 8.4(L) 8.6 - 10.5 mg/dL 04/08/2025 9:51 AM EDT [facility] BUN/Creatinine Ratio 19.1 7.0 - 25.0 04/08/2025 9:51 AM EDT [facility] Anion Gap 10.5 5.0 - 15.0 mmol/L 04/08/2025 9:51 AM EDT [facility] eGFR 117.0 >60.0 mL/min/1.7 3 04/08/2025 9:51 AM EDT [facility] Blood Venipuncture / Unknown 04/08/2025 8:41 AM EDT 04/08/2025 9:09 AM EDT Narrative [facility] - 04/08/2025 9:51 AM [...] Fi nal Result Performing Organization Address City/[facility]/ZIP Co de Phone Number [facility]
[address] [place] [address], * Heparin Anti-Xa (04/08/2025 8:41 AM EDT) Heparin Anti-Xa (UFH) 0.33 0.30 - 0.70 IU/ml 04/08/2025 9:40 AM EDT [facility] Blood Venipuncture / Unknown 04/08/2025 8:41 AM EDT 04/08/2025 9:10 AM EDT Sushil Dean Jr., MD LAB BLOOD ORDERABLES Fi nal Result Performing Organization Address City/[facility]/ZIP Co de Phone Number [facility]
[address] [place] [address], * [place] C Arm During Surgery (04/07/2025 [...] Occasional WBCs seen 04/11/2025 10:40 AM EDT [facility] Gram Stain No organisms seen 04/11/2025 10:40 AM EDT [facility] Swab Structure of right lower limb / Unknown Collection / Unknown 04/07/2025 9:14 PM EDT 04/08/2025 4:36 AM EDT us Sushil Dean Jr., MD MICROBIOLOGY - GENERAL ORDERABLES Final Result Performing Organization Address City/[facility]/ZIP Co de Phone Number [facility]
[address] [place] [address], [place] [phone] [facility]
[address] [place] [address], [place] [phone] * Anaerobic Culture - Swab, Leg, Right (04/07/2025 9:14 PM EDT) Anaerobic Culture No anaerobes isolated at 5 days ALIZA 04/13/2025 7:21 AM EDT [facility] Swab Structure of right lower limb / Unknown Collection / Unknown 04/07/2025 9:14 PM EDT 04/08/2025 4:36 AM EDT us Sushil Dean Jr., MD MICROBIOLOGY - GENERAL ORDERABLES Final Result [facility]
[address] [place] [address], * Anaerobic Culture - Tissue, Leg (04/07/2025 9:13 PM EDT) Anaerobic Culture No anaerobes isolated at 5 days ALIZA 04/13/2025 7:21 AM EDT [facility] Tissue Lower limb structure / Unknown Collection / Unknown 04/07/2025 9:13 PM EDT 04/08/2025 4:54 AM EDT Jason Álvarez DO MICROBIOLOGY - GENERAL ORDERABLE S Final Result Performing Organization Address [facility]/ZIP Co de Phone Number [facility]
[address] [place] [address], * Tissue / Bone Culture - Tissue, Leg, Right (04/07/2025 9:13 PM EDT) Tissue Culture No growth at 3 days ALIZA 04/11/2025 10:36 AM EDT [facility] Gram Stain Rare (1+) WBCs seen 04/11/2025 10:36 AM EDT [facility] Gram Stain No organisms seen 04/11/2025 10:36 AM EDT [facility] Tissue Structure of right lower limb / Unknown 04/07/2025 9:13 PM EDT 04/08/2025 4:54 AM EDT Sushil Dean Jr., MD MICROBIOLOGY - GENERAL ORDERABLES Final Result [facility]
[address] [place] [address], [facility]
[address] [place] [address], [place] [phone] * (ABNORMAL) Wound Culture - Swab, Leg, Right (04/07/2025 9:07 PM EDT) Wound Culture Light growth (2+) Staphylococcus aureus, MRSA(A) ALIZA 04/10/2025 10:38 AM EDT [facility] Comment: Methicillin resistant Staphylococcus aureus, Patient may be an isolation risk. Gram Stain Few (2+) WBCs seen 04/10/2025 10:38 AM EDT [facility] Gram Stain No organisms seen 10:38 AM EDT [facility] Swab Structure of right [...] Final Result [facility]
[address] [place] [address], [place] [phone] [facility]
[address] [place] [address], [place] [phone] * Anaerobic Culture - Swab, Leg, Right [...] Result [facility]
[address] [place] [address], * Heparin Anti-Xa (04/07/2025 9:10 AM EDT) Pathologist [facility] Heparin Anti-Xa ([facility]) 0.30 0.30 - 0.70 IU/ml 04/07/2025 10:12 AM EDT [facility] Blood Venipuncture / Unknown 04/07/2025 9:10 AM EDT 04/07/2025 9:38 AM EDT Una Perla PharmD LAB BLOOD ORDERABLES Final R esult Performing Organization Address City/[facility]/ZIP Co de Phone Number [facility]
[address] [place] [address], * (ABNORMAL) CBC Auto Differential (04/07/2025 9:10 AM EDT) [facility] WBC 8.63 3.40 - 10.80 10*3/mm3 04/07/2025 9:50 AM EDT [facility] RBC 5.23 4.14 - 5.80 10*6/mm3 04/07/2025 9:50 AM EDT [facility] Hemoglobin 14.7 13.0 - 17.7 g/dL 04/07/2025 9:50 AM EDT [facility] Hematocrit 44.8 37.5 - 51.0 % 04/07/2025 9:50 AM EDT [facility] MCV 85.7 79.0 - 97.0 fL 04/07/2025 9:50 AM EDT [facility] MCH 28.1 26.6 - 33.0 pg 04/07/2025 9:50 AM EDT [facility] MCHC 32.8 31.5 - 35.7 g/dL 04/07/2025 9:50 AM EDT [facility] RDW 12.8 12.3 - 15.4 % 04/07/2025 9:50 AM [facility] RDW-SD 39.9 37.0 - 54.0 fl 04/07/2025 9:50 AM [facility] MPV 10.8 6.0 - 12.0 fL 04/07/2025 9:50 AM [facility] Platelets 149 140 - 450 10*3/mm3 04/07/2025 9:50 AM [facility] Neutrophil % 66.7 42.7 - 76.0 % 04/07/2025 9:50 AM [facility] Lymphocyte % 20.5 19.6 - 45.3 % 04/07/2025 9:50 AM [facility] Monocyte % 9.8 5.0 - 12.0 % 04/07/2025 9:50 AM [facility] Eosinophil % 2.1 0.3 - 6.2 % 04/07/2025 9:50 AM [facility] Basophil % 0.3 0.0 - 1.5 % 04/07/2025 9:50 AM [facility] Immature Grans % 0.6(H) 0.0 - 0.5 % 04/07/2025 9:50 AM [facility] Neutrophils, Absolute 5.75 1.70 - 7.00 10*3/mm3 04/07/2025 9:50 AM [facility] Lymphocytes, Absolute 1.77 0.70 - 3.10 10*3/mm3 04/07/2025 9:50 AM [facility] Monocytes, Absolute 0.85 0.10 - 0.90 10*3/mm3 04/07/2025 9:50 AM [facility] Eosinophils, Absolute 0.18 0.00 - 0.40 10*3/mm3 04/07/2025 9:50 AM [facility] Basophils, Absolute 0.03 0.00 - 0.20 10*3/mm3 04/07/2025 9:50 AM [facility] Immature Grans, Absolute 0.05 0.00 - 0.05 10*3/mm3 04/07/2025 9:50 AM EDT [facility] nRBC 0.0 0.0 - 0.2 /100 WBC 04/07/2025 9:50 AM EDT [facility] Blood Venipuncture / Unknown 04/07/2025 9:10 AM EDT 04/07/2025 9:38 AM EDT us Jason Preeti POWELL LAB BLOOD ORDERABLES Final Resul t [facility]
[address] [place] [address], * (ABNORMAL) Basic Metabolic Panel (04/07/2025 9:10 AM EDT) Glucose 112(H) 65 - 99 mg/dL 04/07/2025 10:19 AM EDT [facility] BUN 13.1 6.0 - 20.0 mg/dL 04/07/2025 10:19 AM EDT [facility] Creatinine 0.77 0.76 - 1.27 mg/dL 04/07/2025 10:19 AM EDT [facility] Sodium 139 136 - 145 mmol/L 04/07/2025 10:19 AM EDT [facility] [facility] Potassium 4.2 3.5 - 5.2 mmol/L 04/07/2025 10:19 AM EDT [facility] Comment:Specimen hemolyzed. Result may be falsely elevated. Chloride 105 98 - 107 mmol/L 04/07/2025 10:19 AM EDT [facility] CO2 24.8 22.0 - 29.0 mmol/L 04/07/2025 10:19 AM EDT [facility] Calcium 8.6 8.6 - 10.5 mg/dL 04/07/2025 10:19 AM EDT [facility] BUN/Creatinine Ratio 17.0 7.0 - 25.0 04/07/2025 10:19 AM EDT [facility] Anion Gap 9.2 5.0 - 15.0 mmol/L 04/07/2025 10:19 AM EDT [facility] eGFR 113.2 >60.0 mL/min/1.7 3 04/07/2025 10:19 AM EDT [facility] Blood Venipuncture / Unknown 04/07/2025 9:10 AM EDT 04/07/2025 9:38 AM EDT Narrative [facility] - 04/07/2025 10:19 AM [...] DO LAB BLOOD ORDERABLES Final Resul t [facility]
[address] [place] [address], * MRI Tibia Fibula Right With & [...] [place] 04/07/2025 9:58 AM EDT Workstation ID: [id number] Narrative 04/07/2025 9:58 AM EDT MRI TIBIA [...] [place] 04/07/2025 9:58 AM EDT Workstation ID: [id number] Sushil Dean Jr., MD IMG MRI ORDERABLES Mary Beth l Result * Heparin Anti-Xa (04/07/2025 1:42 AM EDT) [facility] Heparin Anti-Xa (UFH) 0.38 0.30 - 0.70 IU/ml 04/07/2025 2:14 AM EDT [facility] Blood Venipuncture / Unknown 04/07/2025 1:42 AM EDT 04/07/2025 1:54 AM EDT Chelsie Turpin [facility] LAB BLOOD ORDERABLES Final R esult [facility]
[address] [place] [address], * Heparin Anti-Xa (04/06/2025 7:16 PM EDT) [facility] Heparin Anti-Xa (UFH) 0.33 0.30 - 0.70 IU/ml 04/06/2025 7:50 PM EDT [facility] Blood Venipuncture / Unknown 04/06/2025 7:16 PM EDT 04/06/2025 7:35 PM EDT Cherri Beatty [facility] LAB BLOOD ORDERABLES Final Res ult Performing Organization Address [facility]/ZIP Co de Phone Number [facility]
[address] [place] [address], * Potassium (04/06/2025 7:16 PM EDT) [facility] Potassium 4.0 3.5 - 5.2 mmol/L 04/06/2025 7:53 PM EDT [facility] Blood Venipuncture / Unknown 04/06/2025 7:16 PM EDT 04/06/2025 7:35 PM EDT Jason Álvarez DO LAB BLOOD ORDERABLES Final Resul t Performing Organization Address [facility] Phone Number [facility]
[address] [place] [address], * (ABNORMAL) Heparin Anti-Xa (04/06/2025 12:36 PM EDT) [facility] Heparin Anti-Xa (UFH) 0.24(L) 0.30 - 0.70 IU/ml 04/06/2025 1:23 PM EDT [facility] Blood Venipuncture / Unknown 04/06/2025 12:36 PM EDT 04/06/2025 1:07 PM EDT Una Perla PharmD LAB BLOOD ORDERABLES Final R esult Performing Organization Address [facility] Co de Phone Number [facility]
[address] [place] [address], * (ABNORMAL) Heparin Anti-Xa (04/06/2025 3:42 AM EDT) [facility] Heparin Anti-Xa (UFH) 0.25(L) 0.30 - 0.70 IU/ml 04/06/2025 5:30 AM EDT [facility] Blood Venipuncture / Unknown 04/06/2025 3:42 AM EDT 04/06/2025 4:59 AM EDT Chelsie Dyana [facility] LAB BLOOD ORDERABLES Final R esult [facility]
[address] [place] [address], * (ABNORMAL) Basic Metabolic Panel (04/06/2025 3:42 AM EDT) [facility] Glucose 94 65 - 99 mg/dL 04/06/2025 5:59 AM EDT [facility] BUN 12.8 6.0 - 20.0 mg/dL 04/06/2025 5:59 AM EDT [facility] Creatinine 0.80 0.76 - 1.27 mg/dL 04/06/2025 5:59 AM EDT [facility] Sodium 138 136 - 145 mmol/L 04/06/2025 5:59 AM EDT [facility] Potassium 3.6 3.5 - 5.2 mmol/L 04/06/2025 5:59 AM EDT [facility] Chloride 103 98 - 107 mmol/L 04/06/2025 5:59 AM EDT [facility] CO2 24.2 22.0 - 29.0 mmol/L 04/06/2025 5:59 AM EDT [facility] Calcium 8.0(L) 8.6 - 10.5 mg/dL 04/06/2025 5:59 AM EDT [facility] BUN/Creatinine Ratio 16.0 7.0 - 25.0 04/06/2025 5:59 AM EDT [facility] Anion Gap 10.8 5.0 - 15.0 mmol/L 04/06/2025 5:59 AM EDT [facility] eGFR 111.9 >60.0 mL/min/1.7 3 04/06/2025 5:59 AM EDT [facility] Blood Venipuncture / Unknown 04/06/2025 3:42 AM EDT 04/06/2025 5:20 AM EDT [facility] - 04/06/2025 5:59 AM [...] DO LAB BLOOD ORDERABLES Final Resul t [facility]
[address] [place] [address], * (ABNORMAL) CBC Auto Differential (04/06/2025 3:41 AM EDT) WBC 10.86(H) 3.40 - 10.80 10*3/mm3 04/06/2025 5:04 AM EDT [facility] RBC 5.08 4.14 - 5.80 10*6/mm3 04/06/2025 5:04 AM EDT [facility] Hemoglobin 13.9 13.0 - 17.7 g/dL 04/06/2025 5:04 AM EDT [facility] Hematocrit 43.7 37.5 - 51.0 % 04/06/2025 5:04 [facility] MCV 86.0 79.0 - 97.0 fL 04/06/2025 5:04 AM [facility] MCH 27.4 26.6 - 33.0 pg 04/06/2025 5:04 AM [facility] MCHC 31.8 31.5 - 35.7 g/dL 04/06/2025 5:04 AM [facility] RDW 12.8 12.3 - 15.4 % 04/06/2025 5:04 AM [facility] RDW-SD 40.0 37.0 - 54.0 fl 04/06/2025 5:04 AM [facility] MPV 11.7 6.0 - 12.0 fL 04/06/2025 5:04 AM [facility] Platelets 115(L) 140 - 450 10*3/mm3 04/06/2025 5:04 AM [facility] Neutrophil % 65.3 42.7 - 76.0 % 04/06/2025 5:04 AM [facility] Lymphocyte % 20.5 19.6 - 45.3 % 04/06/2025 5:04 AM [facility] Monocyte % 11.8 5.0 - 12.0 % 04/06/2025 5:04 AM [facility] Eosinophil % 1.8 0.3 - 6.2 % 04/06/2025 5:04 AM [facility] Basophil % 0.3 0.0 - 1.5 % 04/06/2025 5:04 AM [facility] Immature Grans % 0.3 0.0 - 0.5 % 04/06/2025 5:04 AM [facility] Neutrophils, Absolute 7.09(H) 1.70 - 7.00 10*3/mm3 04/06/2025 5:04 AM [facility] Lymphocytes, Absolute 2.23 0.70 - 3.10 10*3/mm3 04/06/2025 5:04 [facility] Monocytes, Absolute 1.28(H) 0.10 - 0.90 10*3/mm3 04/06/2025 5:04 AM EDT [facility] Eosinophils, Absolute 0.20 0.00 - 0.40 10*3/mm3 04/06/2025 5:04 AM EDT [facility] Basophils, Absolute 0.03 0.00 - 0.20 10*3/mm3 04/06/2025 5:04 AM EDT [facility] Immature Grans, Absolute 0.03 0.00 - 0.05 10*3/mm3 04/06/2025 5:04 AM EDT [facility] nRBC 0.0 0.0 - 0.2 /100 WBC 04/06/2025 5:04 AM EDT [facility] Blood Venipuncture / Unknown 04/06/2025 3:41 AM EDT 04/06/2025 4:58 AM EDT Jason Álvarez DO LAB BLOOD ORDERABLES Final Resul t Performing Organization Address City/[facility] Co de Phone Number [facility]
[address] [place] [address], [place] [phone] * Heparin Anti-Xa (04/05/2025 8:43 PM EDT) [facility] Heparin Anti-Xa (UFH) 0.38 0.30 - 0.70 IU/ml 04/05/2025 9:09 PM EDT [facility] Blood Venipuncture / Unknown 04/05/2025 8:43 PM EDT 04/05/2025 8:55 PM EDT us Cherri Beatty [facility] LAB BLOOD ORDERABLES Final Res ult Performing Organization Address City/[facility] Co de Phone Number [facility]
[address] [place] [address], [place] [phone] * CK (04/05/2025 12:15 PM EDT) Pathologist [facility] Creatine Kinase 140 20 - 200 U/L 04/05/2025 1:31 PM EDT [facility] Blood Venipuncture / Unknown 04/05/2025 12:15 PM EDT 04/05/2025 1:03 PM EDT Carlton Mead MD LAB BLOOD ORDERABLES Final R esult Performing Organization Address City/[facility]/ZIP Co de Phone Number [facility]
[address] [place] [address], * (ABNORMAL) Heparin Anti-Xa (04/05/2025 12:15 PM EDT) [facility] Heparin Anti-Xa (UFH) 0.17(L) 0.30 - 0.70 IU/ml 04/05/2025 1:21 PM EDT [facility] Blood Venipuncture / Unknown 04/05/2025 12:15 PM EDT 04/05/2025 1:04 PM EDT Una Prela PharmD LAB BLOOD ORDERABLES Final R esult Performing Organization Address City/[facility]/ZIP Co de Phone Number [facility]
[address] [place] [address], * (ABNORMAL) aPTT (04/05/2025 3:54 AM EDT) [facility] PTT 35.3(L) 60.0 - 90.0 seconds 04/05/2025 4:31 AM EDT [facility] Blood Venipuncture / Unknown 04/05/2025 3:54 AM EDT 04/05/2025 4:15 AM EDT Narrative [facility] - 04/05/2025 4:31 AM EDT PTT = The equivalent PTT values for the therapeutic range of heparin levels at 0.3 to 0.5 U/ml are 60 to 70 seconds. [employer] LAB BLOOD ORDERABLES Final R esult [facility]
[address] [place] [address], * Heparin Anti-Xa (04/05/2025 3:54 AM EDT) Pathologist [facility] Heparin Anti-Xa (UFH) 0.30 0.30 - 0.70 IU/ml 04/05/2025 4:32 AM EDT [facility] Blood Venipuncture / Unknown 04/05/2025 3:54 AM EDT 04/05/2025 4:15 AM EDT [employer] LAB BLOOD ORDERABLES Final R esult Performing Organization Address City/[facility]/ZIP Co de Phone Number [facility]
[address] [place] [address], * (ABNORMAL) CBC Auto Differential (04/05/2025 3:54 AM EDT) [facility] WBC 11.18(H) 3.40 - 10.80 10*3/mm3 04/05/2025 4:20 AM EDT [facility] RBC 5.00 4.14 - 5.80 10*6/mm3 04/05/2025 4:20 AM EDT [facility] Hemoglobin 13.9 13.0 - 17.7 g/dL 04/05/2025 4:20 AM EDT [facility] Hematocrit 42.4 37.5 - 51.0 % 04/05/2025 4:20 AM EDT [facility] MCV 84.8 79.0 - 97.0 fL 04/05/2025 4:20 AM EDT [facility] MCH 27.8 26.6 - 33.0 pg 04/05/2025 4:20 AM EDT [facility] MCHC 32.8 31.5 [...] - 76.0 % 04/05/2025 4:20 AM [facility] Lymphocyte % 14.0(L) 19.6 - 45.3 % 04/05/2025 4:20 AM [facility] Monocyte % 11.0 5.0 - 12.0 % 04/05/2025 4:20 AM [facility] Eosinophil % 0.8 0.3 - 6.2 % 04/05/2025 4:20 AM [facility] Basophil % 0.3 0.0 - 1.5 % 04/05/2025 4:20 AM [facility] Immature Grans % 0.4 0.0 - 0.5 % 04/05/2025 4:20 AM [facility] Neutrophils, Absolute 8.23(H) 1.70 - 7.00 10*3/mm3 04/05/2025 4:20 AM [facility] Lymphocytes, Absolute 1.56 0.70 - 3.10 10*3/mm3 04/05/2025 4:20 AM [facility] Monocytes, Absolute 1.23(H) 0.10 - 0.90 10*3/mm3 04/05/2025 4:20 AM [facility] Eosinophils, Absolute 0.09 0.00 - 0.40 10*3/mm3 04/05/2025 4:20 AM [facility] Basophils, Absolute 0.03 0.00 - 0.20 10*3/mm3 04/05/2025 4:20 AM EDT [facility] Immature Grans, Absolute 0.04 0.00 - 0.05 10*3/mm3 04/05/2025 4:20 AM EDT [facility] nRBC 0.0 0.0 - 0.2 /100 WBC 04/05/2025 4:20 AM EDT [facility] Blood Venipuncture / Unknown 04/05/2025 3:54 AM EDT 04/05/2025 4:16 AM EDT Una Perla PharmD LAB BLOOD ORDERABLES Final R esult [facility]
[address] [place] [address], * (ABNORMAL) Basic Metabolic Panel (04/05/2025 3:54 AM EDT) Glucose 152(H) 65 - 99 mg/dL 04/05/2025 4:40 AM EDT [facility] BUN 17.3 6.0 - 20.0 mg/dL 04/05/2025 4:40 AM EDT [facility] Creatinine 0.92 0.76 - 1.27 mg/dL 04/05/2025 4:40 AM EDT [facility] Sodium 136 136 - 145 mmol/L 04/05/2025 4:40 AM EDT [facility] Potassium 3.9 3.5 - 5.2 mmol/L 04/05/2025 4:40 AM EDT [facility] Chloride 103 98 - 107 mmol/L 04/05/2025 4:40 AM EDT [facility] CO2 24.0 22.0 - 29.0 mmol/L 04/05/2025 4:40 AM EDT [facility] Calcium 7.8(L) 8.6 - 10.5 mg/dL 04/05/2025 4:40 AM EDT [facility] BUN/Creatinine Ratio 18.8 7.0 - 25.0 04/05/2025 4:40 AM EDT [facility] Anion Gap 9.0 5.0 - 15.0 mmol/L 04/05/2025 4:40 AM EDT [facility] eGFR 105.2 >60.0 mL/min/1.7 3 04/05/2025 4:40 AM EDT [facility] Blood Venipuncture [...] MD LAB BLOOD ORDERABLES Final Re sult [facility]
[address] [place] [address], * (ABNORMAL) aPTT (04/05/2025 12:18 AM EDT) PTT 33.6(L) 60.0 - 90.0 seconds 04/05/2025 12:53 AM EDT [facility] Blood Venipuncture / Unknown 04/05/2025 12:18 AM EDT 04/05/2025 12:37 AM EDT [facility] - 04/05/2025 12:53 AM EDT PTT = The equivalent PTT values for the therapeutic range of heparin levels at 0.3 to 0.5 U/ml are 60 to 70 seconds. [employer] Pharm[employer] LAB BLOOD ORDERABLES Final R esult [facility]
[address] [place] [address], [place] [phone] * (ABNORMAL) Protime-INR (04/05/2025 12:18 AM EDT) Protime 15.9(H) 12.2 - 15.3 Seconds 04/05/2025 12:53 AM EDT [facility] INR 1.19(H) 0.89 - 1.12 04/05/2025 12:53 AM EDT [facility] Blood Venipuncture / Unknown 04/05/2025 12:18 AM EDT 04/05/2025 12:37 AM EDT [employer] Pharm[employer] LAB BLOOD ORDERABLES Final R esult Performing Organization Address [facility]/ZIP Co de Phone Number [facility]
[address] [place] [address], [place] [phone] * Heparin Anti-Xa (04/05/2025 12:18 AM EDT) Heparin Anti-Xa (UFH) 0.39 0.30 - 0.70 IU/ml 04/05/2025 12:54 AM EDT [facility] Blood Venipuncture / Unknown 04/05/2025 12:18 AM EDT 04/05/2025 12:37 AM EDT [employer] LAB BLOOD ORDERABLES Final R esult [facility]
[address] [place] [address], [place] [phone] * MRI Tibia Fibula Right With & [...] MD 04/04/2025 11:00 PM EDT Workstation ID: [id number] Narrative 04/04/2025 11:00 PM EDT MRI TIBIA [...] MD 04/04/2025 11:00 PM EDT Workstation ID: [id number] Leonora Shepherd MD IMG MRI ORDERABLES Final Resu lt * POC Creatinine (04/04/2025 2:49 PM EDT) Creatinine 1.10 0.60 - 1.30 mg/dL 04/07/2025 7:14 PM EDT [facility] Comment:Serial Number: [id number]: [id number] Venous Blood 04/04/2025 2:49 PM EDT 04/07/2025 7:14 PM EDT Jason Álvarez DO POINT OF CARE TEST ORDERABLES Fi nal Result [facility]
[address] [place] [address], * (ABNORMAL) CBC Auto Differential (04/04/2025 2:47 PM EDT) [facility] Signature WBC 12.72(H) 3.40 - 10.80 10*3/mm3 04/04/2025 2:56 PM EDT [facility] RBC 5.64 4.14 - 5.80 10*6/mm3 04/04/2025 2:56 PM EDT [facility] Hemoglobin 15.3 13.0 - 17.7 g/dL 04/04/2025 2:56 PM EDT [facility] Hematocrit 47.9 37.5 - 51.0 % 04/04/2025 2:56 PM EDT [facility] MCV 84.9 79.0 - 97.0 fL 04/04/2025 2:56 PM EDT [facility] MCH 27.1 26.6 - 33.0 pg 04/04/2025 2:56 PM EDT [facility] MCHC 31.9 31.5 - 35.7 g/dL 04/04/2025 2:56 PM EDT [facility] RDW 13.1 12.3 - 15.4 % 04/04/2025 2:56 PM EDT [facility] RDW-SD 40.3 37.0 - 54.0 fl 04/04/2025 2:56 PM EDT [facility] MPV 9.4 6.0 - 12.0 fL 04/04/2025 2:56 PM EDT [facility] Platelets 232 140 - 450 10*3/mm3 04/04/2025 2:56 PM EDT [facility] Neutrophil % 74.9 42.7 - 76.0 % 04/04/2025 2:56 PM EDT [facility] Lymphocyte % 13.1(L) 19.6 - 45.3 % 04/04/2025 2:56 PM EDT [facility] Monocyte % 11.2 5.0 - 12.0 % 04/04/2025 2:56 [facility] Eosinophil % 0.4 0.3 - 6.2 % 04/04/2025 2:56 PM EDT [facility] Basophil % 0.2 0.0 - 1.5 % 04/04/2025 2:56 PM EDT [facility] Immature Grans % 0.2 0.0 - 0.5 % 04/04/2025 2:56 PM EDT [facility] Neutrophils, Absolute 9.52(H) 1.70 - 7.00 10*3/mm3 04/04/2025 2:56 PM EDT [facility] Lymphocytes, Absolute 1.66 0.70 - 3.10 10*3/mm3 04/04/2025 2:56 PM EDT [facility] Monocytes, Absolute 1.43(H) 0.10 - 0.90 10*3/mm3 04/04/2025 2:56 PM EDT [facility] Eosinophils, Absolute 0.05 0.00 - 0.40 10*3/mm3 04/04/2025 2:56 PM EDT [facility] Basophils, Absolute 0.03 0.00 - 0.20 10*3/mm3 04/04/2025 2:56 PM EDT [facility] Immature Grans, Absolute 0.03 0.00 - 0.05 10*3/mm3 04/04/2025 2:56 PM EDT [facility] nRBC 0.0 0.0 - 0.2 /100 WBC 04/04/2025 2:56 PM EDT [facility] Blood Venipuncture / Unknown 04/04/2025 2:47 PM EDT 04/04/2025 2:52 PM EDT us Mario Crowley DO LAB BLOOD ORDERABLES Fin al Result [facility]
[address] [place] [address], * (ABNORMAL) C-reactive Protein (04/04/2025 2:47 PM EDT) C-Reactive Protein 8.57(H) 0.00 - 0.50 mg/dL 04/04/2025 3:26 PM EDT [facility] Blood Venipuncture / Unknown 04/04/2025 2:47 PM EDT 04/04/2025 2:52 PM EDT Mario Ortiz Keo LAB BLOOD ORDERABLES Fin al Result [facility]
[address] [place] [address], * (ABNORMAL) Sedimentation Rate (04/04/2025 2:47 PM EDT) [facility] Sed Rate 51(H) 0 - 15 mm/hr 04/04/2025 3:06 PM EDT [facility] Blood Venipuncture / Unknown 04/04/2025 2:47 PM EDT 04/04/2025 2:52 PM EDT Mario Ortiz Keo LAB BLOOD ORDERABLES Fin al Result Performing Organization Address City/[facility]/ZIP Co de Phone Number [facility]
[address] [place] [address], * Comprehensive Metabolic Panel (04/04/2025 2:47 PM EDT) [facility] Glucose 90 65 - 99 mg/dL 04/04/2025 3:26 PM EDT [facility] BUN 18.3 6.0 - 20.0 mg/dL 04/04/2025 3:26 PM EDT [facility] Creatinine 0.94 0.76 - 1.27 mg/dL 04/04/2025 3:26 PM EDT [facility] Sodium 136 136 - 145 mmol/L 04/04/2025 3:26 PM EDT [facility] Potassium 3.8 3.5 - 5.2 mmol/L 04/04/2025 3:26 PM EDT [facility] Chloride 100 98 - 107 mmol/L 04/04/2025 3:26 PM EDT [facility] CO2 25.3 22.0 - 29.0 mmol/L 04/04/2025 3:26 PM EDT [facility] Calcium 8.6 8.6 - 10.5 mg/dL 04/04/2025 3:26 PM EDT [facility] Total Protein 7.3 6.0 - 8.5 g/dL 04/04/2025 3:26 PM EDT [facility] Albumin 4.1 3.5 - 5.2 g/dL 04/04/2025 3:26 PM EDT [facility] ALT (SGPT) 26 1 - 41 U/L 04/04/2025 3:26 PM EDT [facility] AST (SGOT) 25 1 - 40 U/L 04/04/2025 3:26 PM EDT [facility] Alkaline Phosphatase 106 39 - 117 U/L 04/04/2025 3:26 PM T [facility] Total Bilirubin 1.0 0.0 - 1.2 mg/dL 04/04/2025 3:26 PM EDT [facility] Globulin 3.2 gm/dL 04/04/2025 3:26 PM T [facility] Comment:Calculated Result A/G Ratio 1.3 g/dL 04/04/2025 3:26 PM T [facility] BUN/Creatinine Ratio 19.5 7.0 - 25.0 04/04/2025 3:26 PM T [facility] Anion Gap 10.7 5.0 - 15.0 mmol/L 04/04/2025 3:26 PM T [facility] eGFR 102.5 >60.0 mL/min/1.7 3 04/04/2025 3:26 PM [facility] Blood Venipuncture / Unknown 04/04/2025 2:47 PM EDT 04/04/2025 2:52 PM EDT Narrative [facility] - 04/04/2025 3:26 PM [...] DO LAB BLOOD ORDERABLES Fin al Result [facility]
[address] [place] [address], documented in this encounter Visit Diagnoses Diagnosis [...] BPA Driven Protocol Open Order & Select [facility] Electrolyte Replacement Protocol Algorithm to [...] BPA Driven Protocol Open Order & Select [facility] Electrolyte Replacement Protocol Algorithm to [...] Scheduled, First dose (after last modification) on Ercia 04/10/25 at 1045, Tablet may be crushed [...] KELL)[id number] (Canceled Entry - Provider: Anahy Marcelino JOURNALISM INSTRUCTOR - Comment: previously given) 0837 (Given - [...] Hart RN)2030 (Given - Provider: Alberto Dillon, RN) [...] RN)2026 (Given - Provider: Alberto Dillon, LU) 0906 (Given - Provider: Shirley Hart RN)2030 [...] Alberto Dillon RN) 1004 (Given - Provider: Magruerite Wakefield, RN) sodium chloride 0.9 % flush [...] Continuous Medication Order 04/09/2025 04/10/2025 04/11/2025 heparin 94550 units/250 mL (100 units/mL) in 0.45 % [...] Hart RN)1508 (Given - Provider: Shirley Hart, LU) bisacodyl [...] BPA Driven Protocol Open Order & Select [facility] Electrolyte Replacement Protocol Algorithm to [...] documented as of this encounter Care Teams Brand Development Manager Relationship Specialty Start Date End Date Provider, No Known [facility] [place] [address] PCP - General 05/09/23 documented as of this encounter
--- OUTSIDE RECORDS SUMMARY | 2025-04-08 15:34 | XMS_ITS | Encounter Summary ---
Author Organization [facility] Address [address] [place] [address] Care Team Providers Care Geospatial Engineer Name Role Phone Provider, No Known Primary Care Provider Unavail able Reason for Visit * Auth/Cert Specialty Diagnoses / Procedures Referred By Bulmaro muniz Referred To Contact Diagnoses Right BKA infection Referral ID Status Reason Start Date Expiration Date Visits Re quested Visits Authorized [id number] 1 1 Encounter Details Date Type Department Care Team (Late st Contact Info) Description 04/08/2025 3:34 PM EDT Anesthesia Event [facility] OR [address] [place] [address] Ulises Hoffman MD [address] [place] [address] Jairo Brooks MD [address] [place] [address] Anesthesia Record Procedure Summary Procedure Name Responsible [...] drink = 0.6 oz pur e alcohol) [facility] Utilities Answer Date Recorded In the past 12 months has [employer], oil, or water [employer] threatened to shut off services in your [...] or training? Not on file Preferred Language Cook Islander 04/07/2025 Sex and Gender Information Value Date Recorded Sex Assigned at Not on file Legal Sex Male 7:30 PM EDT Gender Identity Not on file Sexual Orientation Not on file documented as of this encounter OR Notes * Anesthesia Postprocedure Evaluation - Stan Casillas CRNA - 04/08/2025 4:40 PM EDT Patient: Won Dennis Procedure Summary Date: 04/08/25 Room / Location: [facility] OR [address] [place] [address] [facility] [place] Anesthesia Start: 1533 Anesthesia Stop: [...] ROS Abdominal Substance History - negative use GYPSUM ROOFER negative director of academic ROS Other Anesthesia Plan ASA 3 general [...] documented as of this encounter Care Teams Geospatial Engineer Relationship Specialty Start Date End Date Provider, [place] [address] PCP - General 05/09/23 documented as of this encounter
[2025-04-23] MEDS: SODIUM CHLORIDE 0.9% 10ML FLUSH SYRINGE 10 ML IV (09:26)
--- OUTSIDE RECORDS SUMMARY | 2025-04-23 09:30 | XMS_ITS | Data Portability ---
[facility] [place] [facility] ADMIN Address [address] [place] [id number] Care Team Providers Care Customer Account Coordinator Name Role Phone SYBIL WILLIAM Primary Care Provider Assessment No assessment recorded. Plan of Treatment Reminders Order Date Submit Date Provider Last Modified By Organization Details Last Modified Time Details Appointments Establish ed Visit 15 min 2024 10:45A Jadyn Torres MD Not available Not available Not available Lab C-reactiv e protein, quantitat nasim, serum or plasma [address] Lab, [address] [facility], [place], [address], 05/02/2024 17:36:31 ESR (erythroc yte sedimenta tion rate), blood [address] Lab, [address] [facility], [place], [address], 05/02/2024 17:36:31 C-reactiv e protein, quantitat nasim, serum or plasma 2023 024 [place] [address] [facility], [address], [address], [place], [address], 11/01/2023 08:08:32 ESR (erythroc yte sedimenta tion rate), blood 2023 024 [place] [address] [facility], [address], [address], [place], [address], 11/01/2023 08:08:32 CBC w/ auto diff 2023 024 [facility], [address] [facility], [place], [address], 10/24/2023 16:12:13 CMP, serum or plasma 2023 024 [facility], [address] [facility], [place], [address], 10/24/2023 16:42:07 CBC w/ auto diff 2023 024 [facility], [address] [facility], [place], [address], 07/25/2023 15:22:25 CMP, serum or plasma 2023 024 [facility], [address] [facility], [place], [address], 07/25/2023 16:32:05 prothromb in (factor II) [id number] mutation, blood [address] Lab, [address] [facility], [place], [address], 08/07/2023 08:55:21 factor VIII activity, plasma [address] Lab, [address] [facility], [place], [address], 08/01/2023 08:26:01 protein C + protein S, functiona l panel, plasma [address] Lab, [address] [place], [address], 08/01/2023 08:26:02 Referral None recorded. Procedures None recorded. Surgeries None recorded. Imaging None recorded. Medication Orders doxycycli ne hyclate 100 mg capsule 2023 024 [facility], [address] [place] [address], [address], [place], [address], 10/25/2023 09:18:27 Patient TargetsNo targets recorded. Patient InstructionsNo instructions recorded. Reason for Referral None Reported. Results Created Date Observation Date Name Description Value Unit Range Abnormal Flag Note LastModifiedBy Organization Detail LastModifiedTime 07/06/20 23 07/07/2023 COMP. METAB OLIC PANEL (14) glucose 92 mg/dL 70-99 Not Available [facility] ([facility]) [address] [place], [address], 07/07/2023 13:08:40 07/06/20 23 07/07/2023 COMP. METAB OLIC PANEL (14) BUN 18 mg/dL 6-24 Not Available [facility] ([facility]) [address] [place], [address], 07/07/2023 13:08:40 07/06/20 23 07/07/2023 COMP. METAB OLIC PANEL (14) creatinine 0.85 mg/dL 0.76-1 .27 Not Available [facility] ([facility]) [address] [place], [address], 07/07/2023 13:08:40 07/06/20 23 07/07/2023 COMP. METAB OLIC PANEL (14) eGFR 111 mL/mi n/1.7 3 >59 Not Available [facility] ([facility]) [address] [place], [address], 07/07/2023 13:08:40 07/06/20 23 07/07/2023 COMP. METAB OLIC PANEL (14) BUN/creatini ne ratio 21 9-20 above high normal Not Available [facility] ([facility]) [address] [place], [address], 07/07/2023 13:08:40 07/06/20 23 07/07/2023 COMP. METAB OLIC PANEL (14) sodium 140 mmol/ L 134-14 4 Not Available [facility] ([facility]) [address] [place] [place], [address], 07/07/2023 13:08:40 07/06/20 23 07/07/2023 COMP. METAB OLIC PANEL (14) potassium 4.1 mmol/ L 3.5-5. 2 Not Available [facility] ([facility]) [address] [facility], [place], [address], 07/07/2023 13:08:40 07/06/20 23 07/07/2023 COMP. METAB OLIC PANEL (14) chloride 105 mmol/ L 96-106 Not Available [facility] ([facility]) [address] [facility], [place], [address], 07/07/2023 13:08:40 07/06/20 23 07/07/2023 COMP. METAB OLIC PANEL (14) carbon dioxide, total 22 mmol/ L - Not Available [facility] ([facility]) [address] [place], [address], 07/07/2023 13:08:40 07/06/20 23 07/07/2023 COMP. METAB OLIC PANEL (14) calcium 8.9 mg/dL 8.7-10 .2 Not Available [facility] ([facility]) [address] [facility], [place], [address], 07/07/2023 13:08:40 07/06/20 23 07/07/2023 COMP. METAB OLIC PANEL (14) protein, total 7.3 g/dL 6.0-8. 5 Not Available [facility] ([facility]) [address] [place], [address], 07/07/2023 13:08:40 07/06/20 23 07/07/2023 COMP. METAB OLIC PANEL (14) albumin 4.3 g/dL 4.1-5. 1 Not Available [facility] ([facility]) [address] [place], [address], 07/07/2023 13:08:40 07/06/20 23 07/07/2023 COMP. METAB OLIC PANEL (14) globulin, total 3.0 g/dL 1.5-4. 5 Not Available [facility] ([facility]) [address] [place], [address], 07/07/2023 13:08:40 07/06/20 23 07/07/2023 COMP. METAB OLIC PANEL (14) A/G ratio 1.4 1.2-2. 2 Not Available [facility] ([facility]) [address] [place], [address], 07/07/2023 13:08:40 07/06/20 23 07/07/2023 COMP. METAB OLIC PANEL (14) bilirubin, total 0.3 mg/dL 0.0-1. 2 Not Available [facility] ([facility]) [address] [place], [address], 07/07/2023 13:08:40 07/06/20 23 07/07/2023 COMP. METAB OLIC PANEL (14) alkaline phosphatase 85 IU/L 44-121 Not Available [facility] ([facility]) [address] [place], [address], 07/07/2023 13:08:40 07/06/20 23 07/07/2023 COMP. METAB OLIC PANEL (14) AST (SGOT) 24 IU/L 0-40 Not Available [facility] ([facility]) [address] [place], [address], 07/07/2023 13:08:40 07/06/20 23 07/07/2023 COMP. METAB OLIC PANEL (14) ALT (SGPT) 25 IU/L 0-44 Not Available [facility] ([facility]) [address] [facility], [place], [address], 07/07/2023 13:08:40 07/06/20 23 07/07/2023 SEDIM ENTAT ION RATE- WESTE RGREN sedimentatio n rate-westerg los 28 mm/HR 0-15 above high normal Not Available [facility] ([facility]) [address] [facility], [place], [address], 07/07/2023 13:08:42 07/06/20 23 07/07/2023 C-CHANA CTIVE PROTE IN, QUANT C-reactive protein, quant 11 mg/L 0-10 above high normal Not Available [facility] ([facility]) [address] [facility], [place], [address], 07/07/2023 13:08:43 07/25/19 24 07/25/2023 CBC AUTO W DIFF WBC 6.7 K/uL 4.0-10 .5 Not Available [facility] ([facility]) [address] [facility], [place], [address], 07/25/2023 15:22:25 07/25/19 24 07/25/2023 CBC AUTO W DIFF RBC 5.7 M/mm3 4.7-6. 1 Not Available [facility] ([facility]) [address] [facility], [place], [address], 07/25/2023 15:22:25 07/25/19 24 07/25/2023 CBC AUTO W DIFF HGB 14.8 gm/dL 13.5-1 8.0 Not Available [facility] ([facility]) [address] [place], [address], 07/25/2023 15:22:25 07/25/19 24 07/25/2023 CBC AUTO W DIFF HCT 45.4 % 42.0-5 2.0 Not Available [facility] ([facility]) [address] [place], [address], 07/25/2023 15:22:25 07/25/19 24 07/25/2023 CBC AUTO W DIFF MCV 79.6 fL 78-100 Not Available [facility] ([facility]) [address], [place], [address], 07/25/2023 15:22:25 07/25/19 24 07/25/2023 CBC AUTO W DIFF MCH 26.0 pg 27-31 low Not Available [facility] ([facility]) [address], [place], [address], 07/25/2023 15:22:25 07/25/19 24 07/25/2023 CBC AUTO W DIFF MCHC 32.6 g/dL 32-36 Not Available [facility] ([facility]) [address], [place], [address], 07/25/2023 15:22:25 07/25/19 24 07/25/2023 CBC AUTO W DIFF RDW 13.7 % 11.5-1 4.0 Not Available [facility] ([facility]) [address] , [place], [address], 07/25/2023 15:22:25 07/25/19 24 07/25/2023 CBC AUTO W DIFF platelet count 279 K/uL 150-45 0 Not Available [facility] ([facility]) [address] , [place], [address], 07/25/2023 15:22:25 07/25/19 24 07/25/2023 CBC AUTO W DIFF MPV 10.0 fL 6-9.5 high Not Available [facility] ([facility]) [address] , [place], [address], 07/25/2023 15:22:25 07/25/19 24 07/25/2023 CBC AUTO W DIFF neutrophil% 61.2 % 43-65 Not Available [facility] ([facility]) [address] , [place], [address], 07/25/2023 15:22:25 07/25/19 24 07/25/2023 CBC AUTO W DIFF lymphocyte% 25.7 % 20.5-4 5.5 Not Available [facility] ([facility]) [address], [place], [address], 07/25/2023 15:22:25 07/25/19 24 07/25/2023 CBC AUTO W DIFF monocyte% 9.2 % 5.5-11 .7 Not Available [facility] ([facility]) [address], [place], [address], 07/25/2023 15:22:25 07/25/19 24 07/25/2023 CBC AUTO W DIFF eosinophil% 3.0 % 0.9-2. 9 high Not Available [facility] ([facility]) [address], [place], [address], 07/25/2023 15:22:25 07/25/19 24 07/25/2023 CBC AUTO W DIFF basophil% 0.6 % 0.2-1. 0 Not Available [facility] ([facility]) [address], [place], [address], 07/25/2023 15:22:25 07/25/19 24 07/25/2023 CBC AUTO W DIFF immature granulocytes % 0.3 % 0.0-0. 8 Not Available [facility] ([facility]) [address], [place], [address], 07/25/2023 15:22:25 07/25/19 24 07/25/2023 CBC AUTO W DIFF nucleated red blood cells % 0.0 % Not Available [facility] ([facility]) [address] [place], [address], 07/25/2023 15:22:25 07/25/19 24 07/25/2023 CBC AUTO W DIFF neutrophil# 4.1 K/uL 2.2-4. 8 Not Available [facility] ([facility]) [address] [facility], [place], [address], 07/25/2023 15:22:25 07/25/19 24 07/25/2023 CBC AUTO W DIFF lymphocyte# 1.7 cell/ mcL 1.3-2. 9 Not Available [facility] ([facility]) [address] [facility], [place], [address], 07/25/2023 15:22:25 07/25/19 24 07/25/2023 CBC AUTO W DIFF monocyte# 0.6 cell/ mcL 0.3-0. 8 Not Available [facility] ([facility]) [address] [facility], [place], [address], 07/25/2023 15:22:25 07/25/19 24 07/25/2023 CBC AUTO W DIFF eosinophil# 0.2 cell/ mcL 0-0.2 Not Available [facility] ([facility]) [address] [facility], [place], [address], 07/25/2023 15:22:25 07/25/19 24 07/25/2023 CBC AUTO W DIFF basophil# 0.0 cell/ mcL 0.0-1. 0 Not Available [facility] ([facility]) [address] [place], [address], 07/25/2023 15:22:25 07/25/19 24 07/25/2023 CBC AUTO W DIFF immature gramulocytes # 0.02 K/uL Not Available [facility] ([facility]) [address] [place], [address], 07/25/2023 15:22:25 07/25/19 24 07/25/2023 CBC AUTO W DIFF nucleated red blood cells # 0.00 K/uL Not Available [facility] ([facility]) [address] [place], [address], 07/25/2023 15:22:25 07/25/19 24 07/25/2023 CBC AUTO W DIFF manual differential NO Not Available [facility] ([facility]) [address], [place], [address], 07/25/2023 15:22:25 07/25/19 24 07/25/2023 PT (PROT HROMB IN TIME) W INR prothrombin time 11.0 secon ds 9.3-11 .4 Not Available [facility] ([facility]) [address], [place], [address], 07/25/2023 16:27:47 07/25/19 24 07/25/2023 PT (PROT [...] Mecha nical Heart Valve s Not Available [facility] ([facility]) [address] , [place], [address], 07/25/2023 16:27:47 07/25/19 24 07/25/2023 COMP METAB OLIC PANEL sodium 142 mmol/ L 136-14 5 Not Available [facility] ([facility]) [address] , [place], [address], 07/25/2023 16:32:05 07/25/19 24 07/25/2023 COMP METAB OLIC PANEL potassium 3.7 mmol/ L 3.6-5. 0 Not Available [facility] ([facility]) [address] , [place], [address], 07/25/2023 16:32:05 07/25/19 24 07/25/2023 COMP METAB OLIC PANEL chloride 104 mmol/ L 98-107 Not Available [facility] ([facility]) [address], [place], [address], 07/25/2023 16:32:05 07/25/19 24 07/25/2023 COMP METAB OLIC PANEL carbon dioxide 29.1 mmol/ L 21.0-3 2.0 Not Available [facility] ([facility]) [address], [place], [address], 07/25/2023 16:32:05 07/25/19 24 07/25/2023 COMP METAB OLIC PANEL anion gap 12.6 Not Available [facility] ([facility]) [address], [place], [address], 07/25/2023 16:32:05 07/25/19 24 07/25/2023 COMP METAB OLIC PANEL glucose 85 mg/dL 70-120 Not Available [facility] ([facility]) [address] , [place], [address], 07/25/2023 16:32:05 07/25/19 24 07/25/2023 COMP METAB OLIC PANEL BUN 16 mg/dL 7-18 Not Available [facility] ([facility]) [address], [place], [address], 07/25/2023 16:32:05 07/25/19 24 07/25/2023 COMP METAB OLIC PANEL creatinine 0.8 mg/dL 0.6-1. 3 Not Available [facility] ([facility]) [address] , [place], [address], 07/25/2023 16:32:05 07/25/19 24 07/25/2023 COMP METAB OLIC PANEL glomerular filtration rate >60 mlper min 60- Not Available [facility] ([facility]) [address] , [place], [address], 07/25/2023 16:32:05 07/25/19 24 07/25/2023 COMP METAB OLIC PANEL total protein 7.6 g/dL 6.4-8. 2 Not Available [facility] ([facility]) [address], [place], [address], 07/25/2023 16:32:05 07/25/19 24 07/25/2023 COMP METAB OLIC PANEL albumin 3.5 g/dL 3.4-5. 0 Not Available [facility] ([facility]) [address] , [place], [address], 07/25/2023 16:32:05 07/25/19 24 07/25/2023 COMP METAB OLIC PANEL globulin 4.1 Not Available [facility] ([facility]) [address] , [place], [address], 07/25/2023 16:32:05 07/25/19 24 07/25/2023 COMP METAB OLIC PANEL alb/glob ratio 0.9 0.7-2 Not Available [facility] ([facility]) [address] , [place], [address], 07/25/2023 16:32:05 07/25/19 24 07/25/2023 COMP METAB OLIC PANEL calcium 8.8 mg/dL 8.5-10 .5 Not Available [facility] ([facility]) [address] , [place], [address], 07/25/2023 16:32:05 07/25/19 24 07/25/2023 COMP METAB OLIC PANEL bilirubin total 0.40 mg/dL 0.10-1 .00 Not Available [facility] ([facility]) [address] , [place], [address], 07/25/2023 16:32:05 07/25/19 24 07/25/2023 COMP METAB OLIC PANEL AST (SGOT) 24 U/L 0-37 Not Available [facility] ([facility]) [address] , [place], [address], 07/25/2023 16:32:05 07/25/19 24 07/25/2023 COMP METAB OLIC PANEL ALT (SGPT) 27 U/L 0-65 Not Available [facility] ([facility]) [address], [place], [address], 07/25/2023 16:32:05 07/25/19 24 07/25/2023 COMP METAB OLIC PANEL alk phosphatase 74 U/L 46-116 Not Available [facility] ([facility]) [address], [place], [address], 07/25/2023 16:32:05 07/25/19 24 07/27/2023 FACTO R VIII (8) ACTIV ITY factor VIII (8) activity 159 % 56-140 high [facility]: [facility] [place] [address] [id number] Lab Direc tor: Linda ho MD, Phone : [phone] Not Available [facility] ([facility]) [address] [facility], [place], [address], 07/27/2023 06:19:41 07/25/19 24 07/27/2023 PROTE IN C FUNTI ONAL protein C functional 102 % 73-180 Perfo rmed at: [facility] - [facility] [place] [address] [place] [address] [facility] Lab Direc tor: Linda ho MD, Phone : [phone] Not Available [facility] ([facility]) [address] [facility], [place], [address], 07/27/2023 06:19:42 07/25/19 24 07/27/2023 PROTE IN [...] at: [facility] - [facility] [place] [address] , [place] [address] Lab Direc tor: Linda ho MD, Phone : [phone] Not Available [facility] ([facility]) [address], [place], [address], 07/27/2023 06:19:43 07/25/19 24 08/03/2023 FACTO R [...] Facto r V Leide n (PMID : 79172 767). Ad ditio nal risk facto rs [...] ders to discu ss resul ts at [phone] (8609 ). . Test Detai ls: Varia nt holly zed: c.*97 G>A, previ ously refer red to as G2021 0 A . Metho ds/Li mitat ions: DNA holly sis of the F2 gene ([id number]) was perfo rmed by P CR [...] e lindy cteri stics deter mined by [employer]. It has not been clear ed or appro raquel by the Food and Drug Admin istra tion. . Refer ences : Fernanda Macias, Russ FULTON, Sammy Ho, Radha KING, Lucas in ; [facility] Pro fessi onal Pract ice and Guide lines Commi ttee. Adden dum: Rubio morley e of Medic al Briseyda ics conse nsus state ment on facto r V Leide n muta tion testi ng. Briseyda Med. 2020Sep 11. doi: 10.10 38/s4 1436- 021-0 110 8-x. PMID: 55350 767. . Randi BOYD. Proth rombi n Throm bophi za. 2005Jan 31 Updat ed 2020Aug 13 . In: Ricki MP, Bhaskar contreras HH, Mary RA, et al., edito rs. GeneR bassamw s(R) Inter net . Shyam gipson ([place]): Unive rsity of Shyam Lowery; 1992- 2020. [...] 018-0 322-z . Epub 2017Apr 13. PMID: 15611 698. Not Available [facility] ([facility]) [address], [place], [address], 08/03/2023 13:12:27 07/25/19 24 08/03/2023 FACTO R II, DNA HOLLY SIS reviewed by: Tacho camp, PhD Direc tor, Molec ular Briseyda ics Perfo rmed at: TG - [facility] [address] , [place] [address] Lab Direc tor: Yaneth Sullivan [facility] , Phone : [phone] Not Available [facility] ([facility]) [address] , [place], [address], 08/03/2023 13:12:27 10/24/19 24 10/24/2023 CBC AUTO W DIFF WBC 6.9 K/uL 4.0-10 .5 Not Available [facility] ([facility]) [address] , [place], [address], 10/24/2023 16:12:13 10/24/19 24 10/24/2023 CBC AUTO W DIFF RBC 5.7 M/mm3 4.7-6. 1 Not Available [facility] ([facility]) [address] , [place], [address], 10/24/2023 16:12:13 10/24/19 24 10/24/2023 CBC AUTO W DIFF HGB 14.7 gm/dL 13.5-1 8.0 Not Available [facility] ([facility]) [address] , [place], [address], 10/24/2023 16:12:13 10/24/19 24 10/24/2023 CBC AUTO W DIFF HCT 46.0 % 42.0-5 2.0 Not Available [facility] ([facility]) [address], [place], [address], 10/24/2023 16:12:13 10/24/19 24 10/24/2023 CBC AUTO W DIFF MCV 80.4 fL 78-100 Not Available [facility] ([facility]) [address] , [place], [address], 10/24/2023 16:12:13 10/24/19 24 10/24/2023 CBC AUTO W DIFF MCH 25.7 pg 27-31 low Not Available [facility] ([facility]) [address] , [place], [address], 10/24/2023 16:12:13 10/24/19 24 10/24/2023 CBC AUTO W DIFF MCHC 32.0 g/dL 32-36 Not Available [facility] ([facility]) [address] , [place], [address], 10/24/2023 16:12:13 10/24/19 24 10/24/2023 CBC AUTO W DIFF RDW 14.3 % 11.5-1 4.0 high Not Available [facility] ([facility]) [address] , [place], [address], 10/24/2023 16:12:13 10/24/19 24 10/24/2023 CBC AUTO W DIFF platelet count 258 K/uL 150-45 0 Not Available [facility] ([facility]) [address] , [place], [address], 10/24/2023 16:12:13 10/24/19 24 10/24/2023 CBC AUTO W DIFF MPV 9.6 fL 6-9.5 high Not Available [facility] ([facility]) [address] , [place], [address], 10/24/2023 16:12:13 10/24/19 24 10/24/2023 CBC AUTO W DIFF neutrophil% 70.1 % 43-65 high Not Available [facility] ([facility]) [address], [place], [address], 10/24/2023 16:12:13 10/24/19 24 10/24/2023 CBC AUTO W DIFF lymphocyte% 18.4 % 20.5-4 5.5 low Not Available [facility] ([facility]) [address], [place], [address], 10/24/2023 16:12:13 10/24/19 24 10/24/2023 CBC AUTO W DIFF monocyte% 8.7 % 5.5-11 .7 Not Available [facility] ([facility]) [address], [place], [address], 10/24/2023 16:12:13 10/24/19 24 10/24/2023 CBC AUTO W DIFF eosinophil% 2.3 % 0.9-2. 9 Not Available [facility] ([facility]) [address], [place], [address], 10/24/2023 16:12:13 10/24/19 24 10/24/2023 CBC AUTO W DIFF basophil% 0.4 % 0.2-1. 0 Not Available [facility] ([facility]) [address] [place], [address], 10/24/2023 16:12:13 10/24/19 24 10/24/2023 CBC AUTO W DIFF immature granulocytes % 0.1 % 0.0-0. 8 Not Available [facility] ([facility]) [address] [place], [address], 10/24/2023 16:12:13 10/24/19 24 10/24/2023 CBC AUTO W DIFF nucleated red blood cells % 0.0 % Not Available [facility] ([facility]) [address] [facility], [place], [address], 10/24/2023 16:12:13 10/24/19 24 10/24/2023 CBC AUTO W DIFF neutrophil# 4.8 K/uL 2.2-4. 8 Not Available [facility] ([facility]) [address], [place], [address], 10/24/2023 16:12:13 10/24/19 24 10/24/2023 CBC AUTO W DIFF lymphocyte# 1.3 cell/ mcL 1.3-2. 9 Not Available [facility] ([facility]) [address], [place], [address], 10/24/2023 16:12:13 10/24/19 24 10/24/2023 CBC AUTO W DIFF monocyte# 0.6 cell/ mcL 0.3-0. 8 Not Available [facility] ([facility]) [address], [place], [address], 10/24/2023 16:12:13 10/24/19 24 10/24/2023 CBC AUTO W DIFF eosinophil# 0.2 cell/ mcL 0-0.2 Not Available [facility] ([facility]) [address], [place], [address], 10/24/2023 16:12:13 10/24/19 24 10/24/2023 CBC AUTO W DIFF basophil# 0.0 cell/ mcL 0.0-1. 0 Not Available [facility] ([facility]) [address], [place], [address], 10/24/2023 16:12:13 10/24/19 24 10/24/2023 CBC AUTO W DIFF immature gramulocytes # 0.01 K/uL Not Available [facility] ([facility]) [address], [place], [address], 10/24/2023 16:12:13 10/24/19 24 10/24/2023 CBC AUTO W DIFF nucleated red blood cells # 0.00 K/uL Not Available [facility] ([facility]) [address], [place], [address], 10/24/2023 16:12:13 10/24/19 24 10/24/2023 CBC AUTO W DIFF manual differential NO Not Available [facility] ([facility]) [address], [place], [address], 10/24/2023 16:12:13 10/24/19 24 10/24/2023 COMP METAB OLIC PANEL sodium 139 mmol/ L 136-14 5 Not Available [facility] ([facility]) [address], [place], [address], 10/24/2023 16:42:07 10/24/19 24 10/24/2023 COMP METAB OLIC PANEL potassium 4.0 mmol/ L 3.6-5. 0 Not Available [facility] ([facility]) [address], [place], [address], 10/24/2023 16:42:07 10/24/19 24 10/24/2023 COMP METAB OLIC PANEL chloride 104 mmol/ L 98-107 Not Available [facility] ([facility]) [address], [place], [address], 10/24/2023 16:42:07 10/24/19 24 10/24/2023 COMP METAB OLIC PANEL carbon dioxide 28.1 mmol/ L 21.0-3 2.0 Not Available [facility] ([facility]) [address], [place], [address], 10/24/2023 16:42:07 10/24/19 24 10/24/2023 COMP METAB OLIC PANEL anion gap 10.9 Not Available [facility] ([facility]) [address] , [place], [address], 10/24/2023 16:42:07 10/24/19 24 10/24/2023 COMP METAB OLIC PANEL glucose 99 mg/dL 70-120 Not Available [facility] ([facility]) [address] , [place], [address], 10/24/2023 16:42:07 10/24/19 24 10/24/2023 COMP METAB OLIC PANEL BUN 16 mg/dL 7-18 Not Available [facility] ([facility]) [address] , [place], [address], 10/24/2023 16:42:07 10/24/19 24 10/24/2023 COMP METAB OLIC PANEL creatinine 0.9 mg/dL 0.6-1. 3 Not Available [facility] ([facility]) [address] , [place], [address], 10/24/2023 16:42:07 10/24/19 24 10/24/2023 COMP METAB OLIC PANEL glomerular filtration rate >60 mlper min 60- Not Available [facility] ([facility]) [address] , [place], [address], 10/24/2023 16:42:07 10/24/19 24 10/24/2023 COMP METAB OLIC PANEL total protein 7.2 g/dL 6.4-8. 2 Not Available [facility] ([facility]) [address] , [place], [address], 10/24/2023 16:42:07 10/24/19 24 10/24/2023 COMP METAB OLIC PANEL albumin 3.6 g/dL 3.4-5. 0 Not Available [facility] ([facility]) [address] , [place], [address], 10/24/2023 16:42:07 10/24/19 24 10/24/2023 COMP METAB OLIC PANEL globulin 3.6 Not Available [facility] ([facility]) [address] [place], [address], 10/24/2023 16:42:07 10/24/19 24 10/24/2023 COMP METAB OLIC PANEL alb/glob ratio 1.0 0.7-2 Not Available [facility] ([facility]) [address], [place], [address], 10/24/2023 16:42:07 10/24/19 24 10/24/2023 COMP METAB OLIC PANEL calcium 8.6 mg/dL 8.5-10 .5 Not Available [facility] ([facility]) [address] , [place], [address], 10/24/2023 16:42:07 10/24/19 24 10/24/2023 COMP METAB OLIC PANEL bilirubin total 0.50 mg/dL 0.10-1 .00 Not Available [facility] ([facility]) [address], [place], [address], 10/24/2023 16:42:07 10/24/19 24 10/24/2023 COMP METAB OLIC PANEL AST (SGOT) 23 U/L 0-37 Not Available [facility] ([facility]) [address], [place], [address], 10/24/2023 16:42:07 10/24/19 24 10/24/2023 COMP METAB OLIC PANEL ALT (SGPT) 39 U/L 0-65 Not Available [facility] ([facility]) [address] , [place], [address], 10/24/2023 16:42:07 10/24/19 24 10/24/2023 COMP METAB OLIC PANEL alk phosphatase 80 U/L 46-116 Not Available [facility] ([facility]) [address] , [place], [address], 10/24/2023 16:42:07 10/25/19 24 10/26/2023 SEDIM ENTAT ION RATE- WESTE RGREN sedimentatio n rate-westerg los 5 mm/HR 0-15 Not Available [facility] ([facility]) [address] [facility] [facility], [place], [address], 11/03/2023 15:11:19 10/25/19 24 10/27/2023 C-CHANA CTIVE PROTE IN, QUANT C-reactive protein, quant 15 mg/L 0-10 above high normal Not Available [facility] ([facility]) [address], [place], [address], 11/03/2023 15:11:21 04/23/20 24 04/23/2024 C-CHANA CTIVE PROTE IN (CRP) C-reactive protein, quant 1.1 mg/dL 0.05-0 .300 high Not Available [facility] ([facility]) [address] [facility], [place], [address], 04/23/2024 10:36:29 04/23/20 24 04/23/2024 SED RATE sed rate auto 4 0-15 Not Available [facility] ([facility]) [address] [facility], [place], [address], 04/23/2024 10:54:51 11/20/19 24 11/20/2023 vengonzalez s duple x US lwr RT ext [facility] [address] [place] [address] Phone: Fax: Name: GAYATHRI DENNIS Exam Date: 024 : 1979 Age 43 years Gender : M Access ion: [id number] Physic lou: LUCI BRADFORDi ty: [facility] Facili ty HSV: Outpat ient Exam: [...] Thank you for referr GAYATHRI Rodríguez to [facility]. Legall y authen ticate d by JADYN DÍAZ 11-19 11:51: 02 CC'ed Logic: Orderi ng Provid er: SPENCER OSUNA Attend ing Provid er: SPENCER OSUNA Referr ing Provid er: SPENCER OSUNA Admitt ing Provid er: SPENCER OSUNA [email or web address] - Physical Therapy [facility] [facility], [place], [address], 11/20/2023 12:58:54 11/20/19 24 11/20/2023 CT, angio gram, chest , w/ contr ast [facility] [address] [place] [address] Phone: Fax: Name: GAYATHRI DENNIS Exam Date: : 1979 Age 43 years Gender : M Access ion: [id number] Physic lou: LUCI BRADFORD Facili ty: [facility] Facili ty HSV: Outpat ient Exam: [...] Thank you for referr GAYATHRI Rodríguez to [facility] al. Legall y authen ticate d by JADYN FarnsworthGAMAFouzia Macias IVO 11-19 12:06: 58 CC'ed Logic: Orderi ng Provid er: SPENCER OSUNA Attend ing Provid er: SPENCER OSUNA Referr ing Provid er: SPENCER OSUNA Admitt ing Provid er: SPENCER OSUNA [email or web address] [facility] - Physical Therapy [address] [place] [address], [place], [address], 11/21/2023 16:18:56 Result Notes Documentation Provider Name and Address Organization Details Recorded Time Ct, Angiogram, Chest, W/ Contrast : [address] [address] Name: WON DENNIS Exam Date: 11/20/2023 : 1980 Age 43 years Gender: M Physician: LUCI BARNES Facility: [facility] Facility HSV: Outpatient Exam: CTA CHEST [...] Thank you for referring WON DENNIS to [facility]. 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 Procedures Surgical History Date Name Laterality Status Provider Name and Address Organization Details Recorded Time 03/26/20 [address], [place], [address], [place] [facility] [place] & [place] 03/18/2024 14:56:10 10/24/19 24 [place], [address], YVON Farnsworth [facility] & [place] 10/23/2023 10:53:19 07/25/19 24 Venipuncture completed Sarah SANZ [facility] & [place] 07/25/2023 14:41:20 amputation of lower limb completed Sarah Farnsworth [facility] & [place] 07/25/2023 13:57:05 Imaging Results None recorded. Procedure Notes None recorded. Medical Equipment None Reported. Allergies Allergen ID Allergen Name Allergen Category Reaction Reaction Severity Criticality Documentation Date Start Date Code Code System Note Provider Name and Address Organization Details Recorded Time 880993 cefdinir medicatio n Not available Not available Not available 06/02/2023 69669 RxNorm Isabel jaramillo, [facility] & [place] 10:06:00 Medications Name Sig Start [...] active Not Available Not Available Not Available [facility] 10 billion cell-200 mg sprinkle capsule [...] [degF] 96 % 96 % 81 /min 102063. 75 g 81 /min Isabel Abdullahiey [facility] & [place] 4 08:59:33 Date Recorded Body weight Body temperature Heart rate Oxygen saturation Oxygen saturation in Arterial blood by Pulse oximetry Systolic And Diastolic Provider Name and Address Organization Details Last Updated DateTime 4 296925. 53 g 97.8 [degF] 89 /min 95 % 95 % 134/82 mm[Hg] [facility] [place] 4 13:54:07 Date Recorded Body height Body mass index (BMI) Body weight Body temperature Heart rate Oxygen saturation Oxygen saturation in Arterial blood by Pulse oximetry Systolic And Diastolic Provider Name and Address Organization Details Last Updated DateTime 4 182.88 cm 43.3 kg/m2 737973. 97 g 98 [degF] 95 /min 96 % 96 % 137/92 mm[Hg] [facility] [place] 4 14:44:48 Date Recorded Body height Body mass index (BMI) Body weight Body temperature Oxygen saturation Oxygen saturation in Arterial blood by Pulse oximetry Heart rate Systolic And Diastolic Provider Name and Address Organization Details Last Updated DateTime 4 182.88 cm 43.2 kg/m2 755907. 81 g 98.6 [degF] 95 % 95 % 86 /min 134/84 mm[Hg] Amy Aquino [facility] & [place] 4 08:59:12 Date Recorded Body height Body mass index (BMI) Body weight Body temperature Oxygen saturation Oxygen saturation in Arterial blood by Pulse oximetry Heart rate Systolic And Diastolic Provider Name and Address Organization Details Last Updated DateTime 4 182.88 cm 42.9 kg/m2 473923. 19 g 98 [degF] 94 % 94 % 70 /min 140/80 mm[Hg] Kalie Gibbs [facility] & [place] 4 09:24:00 Social History None recorded. Functional Status Question Answer Note LastModified by Organizat ion Details LastModified Time Do you use any illicit or recreational drugs? No [email or web address] Information not available 07/25/2023 What is your level of alcohol consumption? Occasional [email or web address] Information not available 07/25/2023 Mental Status None recorded. Family History Nothing Reported. Medical History No medical history recorded. Immunizations Vaccine Type Date Status Note Provider Nam e and Address Organization Details Recorded Time Td (adult), 2 Lf tetanus toxoid, preservative free, adsorbed 6 completed Sarah jaramillo [facility] & [place] 07/25/2023 13:54:15 Past Encounters Encounter ID Performer Location Encounter Start Date Encounter Closed Date Diagnosis/Indication Diagnosis SNOMED-CT Code Diagnosis ICD10 Code Diagnosis IMO Codes Diagnosis Note [id number] Randy Torres MD [facility] [address] [place] [address] 06/02/2023 09:54:50 06/02/2023 10:26:43 Osteomyelitis 65336991 M86.9 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 Influenza caused by Influenza A virus 423146465 J09.X2 Resolved.. No further oseltamivi r needed. High risk medication monitoring indicated 0957098200 7304804 Z76.89 Related to the daptomycin . I will check a total CK and continue to follow serial levels of this enzyme to make sure he develops no rhabdomyol ysis. [id number] Randy Torres MD [facility] [address] [place] [address] 06/09/2023 10:23:03 06/09/2023 10:54:12 Osteomyelitis 84534136 M86.9 Occurring in the right BKA stump [...] time. Methicilli n resistant Staphylococcus aureus infection 651830403 A49.02 As above High risk medication monitoring indicated 4019084868 2326713 Z76.89 This is related to the daptomycin . I will continue to monitor his total CK levels closely. [id number] Randy Torres MD [facility] [address] [place] [address] 06/28/2023 10:37:09 06/28/2023 11:22:08 Osteomyelitis 04743230 M86.9 Occurring in the right BKA stump [...] week. Methicilli n resistant Staphylococcus aureus infection 157014020 A49.02 As above [id number] Randy Torres MD [facility] [address] [place] [address] 07/06/2023 09:38:06 07/06/2023 10:00:10 Osteomyelitis 34589739 M86.9 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 Methicilli n resistant Staphylococcus aureus infection 105988146 A49.02 As above Adverse re action to drug 11933895 T50.905A Related to doxycyclin e. This is gastrointe stinal in nature. I will check his liver function testing to make sure he is not developing any hepatotoxi city. I will drop the dose to 100 mg per day. I want him to continue to take it with food. I will re-evaluat e next week. [id number] Randy Torres MD [facility] [address] [place] [address] 07/12/2023 08:53:12 07/12/2023 09:54:35 Osteomyelitis 84375822 M86.9 Occurring in the right BKA stump [...] month. Methicilli n resistant Staphylococcus aureus infection 148319290 A49.02 As above [id number] Luci Barnes PA-C [facility] [address] [place] [address] 07/25/2023 13:39:19 07/26/2023 06:33:52 Deep venous thrombosis 602807611 I82.409 Patient has a history of osteomyeli [...] performed when patient was hospitaliz ed at [facility] on May 26, 2023 with normal antithromb in 3 activity. No evidence of factor 5 Leiden mutation. Discussed with patient will order additional labs for further evaluation acquired hypercoagu lable disorder today. Discussed will likely continue on least the prophylact ic dose of Eliquis lifelong due to separate occurrence s of blood clots. Pulmonary embolism 26977 003 I26.99 Patient has a history of [...] s of blood clots. Anticoagulant therapy 18 1476882 Z79.01 Patient continues on Eliquis 5 mg 1 tab p.o. b.i.d.. He is tolerating without trouble. Discussed will likely continue on least the prophylact ic dose of Eliquis lifelong due to separate occurrence s of blood clots. [id number] Luci Barnes PA-C [facility] [address] [place] [address] 10/24/2023 14:29:27 10/24/2023 15:33:34 Deep venous thrombosis 009949132 I82.409 Patient has a history of osteomyeli [...] performed when patient was hospitaliz ed at [facility] on May 26, 2023 with normal [...] Will follow up labs today. Pulmonary embolism 66003 003 I26.99 Patient has a history of [...] follow up labs today. Anticoagulant therapy 18 3893920 Z79.01 Patient continues on Eliquis 5 mg 1 tab p.o. b.i.d.. He is tolerating without trouble. Discussed will continue on least the prophylact ic dose of Eliquis lifelong due to separate occurrence s of blood clots. Will follow up venous duplex of lower extremity and chest CTA to make sure no evidence of embolism before reducing Eliquis dose to 2.5 mg b.i.d. [id number] Randy Torres MD [facility] [address] [place] [address] 10/25/2023 08:49:58 10/25/2023 10:57:40 Osteomyelitis 14923560 M86.9 Occurring in the right BKA stump [...] months. Methicilli n resistant Staphylococcus aureus infection 406258741 A49.02 As above High risk medication monitoring indicated 9858228306 7581426 Z76.89 This is related to the chronic suppressiv e doxycyclin e. I reviewed his liver function testing from yesterday. There is no evidence of any hepatotoxi city. I will continue to monitor this at each visit. I also counseled him about the risk of photosensi tivity with doxycyclin e. [id number] Randy Torres MD [facility] -[address] [facility] [address] [place] [address] 04/23/2024 09:14:33 04/23/2024 09:34:49 Osteomyelitis 78054301 M86.9 Occurring in the right BKA stump [...] month. Methicilli n resistant Staphylococcus aureus infection 709643968 A49.02 As above Health Concerns Section Related Observation LastModified by Organization Detai ls LastModified Time None Recorded Concern Status LastModified by Organization Details LastModified Time None Recorded Advance Directives Directive None Recorded Payers Insurance Date Sequence Insurance Name Policy Number Policy Brantley Covered Member ID Brantley Member ID Guarantor Name 01/27/2024 1 [employer] [id number] Won Dennis [id number] Won Dennis 04/18/2025 1 LENNY Dennis [id number] Won Dennis Notes Date Note Type Note [...] incision remains completely healed. Randy Torres MD [address], [place], [address], [place] [facility] [place] & [place] 07/12/2023 09:50:44 07/25/2023 text/html 43-year-old [...] Labs performed when patient was hospitalized at [facility] on May 26, 2023 with normal antithrombin 3 activity. No evidence of factor 5 Leiden mutation. Discussed with patient will order additional labs for further evaluation acquired hypercoagulable disorder today. Discussed will likely continue on least the prophylactic dose of Eliquis lifelong due to separate occurrences of blood clots. Luci Barnes PA-C [address], [place], [address], [place] [facility] & [place] 07/25/2023 15:32:35 10/24/2023 text/html 43-year-old [...] Labs performed when patient was hospitalized at [facility] on May 26, 2023 with normal [...] follow up labs today. Luci Barnes PA-C [address] , [place], [address], [place] [facility] & [place] 10/24/2023 15:43:34 10/25/2023 text/html ROS [...] well. Randy Torres MD [address], [place], [address], [facility] - [facility] 10/25/2023 09:16:07 04/23/2024 text/html ROS as [...] well. Randy Torres MD [address], [place], [address], [facility] - [facility] & [place] 04/23/2024 09:31:22
--- OUTSIDE RECORDS SUMMARY | 2025-04-23 09:31 | XMS_ITS | Clinical Summary ---
Author Organization [facility] Address [address] [place] [address] Care Team Providers Care Inspecting Engineer Name Role Phone Provider, No Known [...] Discontinue d(Stop Taking at Discharge) Lactobacillus- Inulin ([facility] [employer] [facility]) capsule Take 200 mg by mouth [...] Description 04/08/2025 3:34 PM EDT Anesthesia [place] [facility] [place] [place] [address] [place] [phone] Ulises Hoffman MD Wells, Jeremy B., MD 04/08/2025 2:45 PM EDT - 04/08/2025 4:04 PM EDT Surgery [facility] OR [address] [place] [address] Sushil Dean Jr., MD LEG DEBRIDEMENT AND IRRIGATION 04/07/2025 8:36 PM EDT Anesthesia Event [facility] [place] [address] [place] [address] Luci Alonso DO 04/07/2025 6:00 PM EDT - 04/07/2025 6:52 PM EDT Surgery [facility] OR [address] [place] [address] Sushil Dean Jr., MD LEG DEBRIDEMENT, IRRIGATION 04/04/2025 4:10 PM EDT - 04/11/2025 1:58 PM EDT Hospital Encounter [facility] 5G [address] [place] [address] Mario Crowley DO Anderson, Laurie, [...] drink = 0.6 oz pur e alcohol) [facility] Utilities Answer Date Recorded In the past 12 months has [employer], gas, oil, or water [place] threatened to shut off services in your [...] this topic Medical Devices Implanted Type Area Blocking Machine Operator Second Device Identifier Shelf Expiration Date Model / Serial / Lot Dev Wnd/Cls Contrl Tiss Stratafix Spiral Pls Pds Ct1 0 22cm - [id number] Implanted:Qty: 1 on 04/08/2025 by Sushil Dean Jr., MD at [facility] Implant Right: Leg [employer] 12/07/2025 [id number] / / [id number] Procedures Procedure Name Priority [...] resultswithin the time period is included. Pathologist [facility] WBC 7.87 3.40 - 10.80 10*3/mm3 04/11/2025 4:02 AM EDT [facility] RBC 4.70 4.14 - 5.80 10*6/mm3 04/11/2025 4:02 AM EDT [facility] Hemoglobin 12.8(L) 13.0 - 17.7 g/dL 04/11/2025 4:02 AM EDT [facility] Hematocrit 40.5 37.5 - 51.0 % 04/11/2025 4:02 AM EDT [facility] MCV 86.2 79.0 - 97.0 fL 04/11/2025 4:02 AM EDT [facility] MCH 27.2 26.6 - 33.0 pg 04/11/2025 4:02 AM EDT [facility] MCHC 31.6 31.5 - 35.7 g/dL 04/11/2025 4:02 AM EDT [facility] RDW 12.9 12.3 - 15.4 % 04/11/2025 4:02 AM EDT [facility] RDW-SD 40.5 37.0 - 54.0 fl 04/11/2025 4:02 AM EDT [facility] MPV 9.2 6.0 - 12.0 fL 04/11/2025 4:02 AM EDT [facility] Platelets 267 140 - 450 10*3/mm3 04/11/2025 4:02 AM EDT [facility] Neutrophil % 59.5 42.7 - 76.0 % 04/11/2025 4:02 AM EDT [facility] Lymphocyte % 26.3 19.6 - 45.3 % 04/11/2025 4:02 AM EDT [facility] Monocyte % 9.3 5.0 - 12.0 % 04/11/2025 4:02 AM [facility] Eosinophil % 4.1 0.3 - 6.2 % 04/11/2025 4:02 AM EDT [facility] Basophil % 0.4 0.0 - 1.5 % 04/11[facility]25 [facility] Immature Grans % 0.4 0.0 - 0.5 % 04/11/2025 4:02 AM [facility] Neutrophils, Absolute 4.69 1.70 - 7.00 10*3/mm3 04/11/2025 4:02 AM [facility] Lymphocytes, Absolute 2.07 0.70 - 3.10 10*3/mm3 04/11/2025 4:02 AM [facility] Monocytes, Absolute 0.73 0.10 - 0.90 10*3/mm3 04/11/2025 4:02 AM [facility] Eosinophils, Absolute 0.32 0.00 - 0.40 10*3/mm3 04/11/2025 4:02 AM [facility] Basophils, Absolute 0.03 0.00 - 0.20 10*3/mm3 04/11/2025 4:02 AM [facility] Immature Grans, Absolute 0.03 0.00 - 0.05 10*3/mm3 04/11/2025 4:02 AM [facility] nRBC 0.0 0.0 - 0.2 /100 WBC 04/11/2025 4:02 AM [facility] Blood Venipuncture / Unknown 04/11/2025 3:40 AM EDT 04/11/2025 3:59 AM EDT Sushil Dean Jr., MD LAB BLOOD ORDERABLES Fi nal Result [facility]
[address] [place] [address], * (ABNORMAL) Comprehensive Metabolic Panel (04/11/2025 3:40 AM EDT) Only the most recent of2 resultswithin the time period is included. Glucose 108(H) 65 - 99 mg/dL 04/11/2025 4:19 AM EDT [facility] BUN 12.5 6.0 - 20.0 mg/dL 04/11/2025 4:19 AM EDT [facility] Creatinine 0.68(L) 0.76 - 1.27 mg/dL 04/11/2025 4:19 AM EDT [facility] Sodium 140 136 - 145 mmol/L 04/11/2025 4:19 AM EDT [facility] Potassium 3.8 3.5 - 5.2 mmol/L 04/11/2025 4:19 AM EDT [facility] Chloride 105 98 - 107 mmol/L 04/11/2025 4:19 AM EDT [facility] CO2 28.2 22.0 - 29.0 mmol/L 04/11/2025 4:19 AM EDT [facility] Calcium 8.2(L) 8.6 - 10.5 mg/dL 04/11/2025 4:19 AM EDT [facility] Total Protein 6.1 6.0 - 8.5 g/dL 04/11/2025 4:19 AM EDT [facility] Albumin 3.1(L) 3.5 - 5.2 g/dL 04/11/2025 4:19 AM EDT [facility] ALT (SGPT) 52(H) 1 - 41 U/L 04/11/2025 4:19 AM EDT [facility] AST (SGOT) 40 1 - 40 U/L 04/11/2025 4:19 AM EDT [facility] Alkaline Phosphatase 99 39 - 117 U/L 04/11/2025 4:19 AM EDT [facility] Total Bilirubin 0.2 0.0 - 1.2 mg/dL 04/11/2025 4:19 AM EDT [facility] Globulin 3.0 gm/dL 04/11/2025 4:19 AM EDT [facility] Comment:Calculated Result A/G Ratio 1.0 g/dL 04/11/2025 4:19 AM EDT [facility] BUN/Creatinine Ratio 18.4 7.0 - 25.0 04/11/2025 4:19 AM EDT [facility] Anion Gap 6.8 5.0 - 15.0 mmol/L 04/11/2025 4:19 AM EDT [facility] eGFR 117.5 >60.0 mL/min/1.7 3 04/11/2025 4:19 AM EDT [facility] Blood Venipuncture / Unknown 04/11/2025 3:40 AM EDT 04/11/2025 3:56 AM EDT [facility] - 04/11/2025 4:19 AM EDT [...] race as a factor us Rosario Hill [facility] [employer] LAB BLOOD ORDERABLES Final Result [facility]
[address] [id number], * Heparin Anti-Xa (04/10/2025 3:46 AM EDT) Only the most recent of13 resultswithin the time period is included. Heparin Anti-Xa (UFH) 0.35 0.30 - 0.70 IU/ml 04/10/2025 4:23 AM EDT [facility] Blood Venipuncture / Unknown 04/10/2025 3:46 AM EDT 04/10/2025 3:53 AM EDT Larisa Hamilton [facility] LAB BLOOD ORDERABLES Final R esult [facility]
[address] [place] [address], * (ABNORMAL) Basic Metabolic Panel (04/10/2025 3:46 AM EDT) Only the most recent of6 resultswithin the time period is included. [facility] Glucose 125(H) 65 - 99 mg/dL [...] Resul t [facility]
[address] [place] [address], * Wound Culture - Swab, Leg, Right (04/08/2025 3:40 PM EDT) Only the most recent of3 resultswithin the time period is included. Wound Culture No growth at 3 days ALIZA 04/11/2025 10:40 AM EDT [facility] Gram Stain Few (2+) [...] City/[facility]/ZIP Co de Phone Number [facility]
[address] [place] [address], [facility]
[address] [place] [address], [place] [phone] * Anaerobic Culture - Swab, Leg, Right (04/08/2025 3:40 PM EDT) Only the most recent of4 resultswithin the time period is included. Anaerobic Culture No anaerobes isolated at 5 days ALIZA 04/13/2025 7:24 AM EDT [facility] Swab Structure of right lower limb / Unknown 04/08/2025 3:40 PM EDT 04/08/2025 8:05 PM EDT Sushil Dean Jr., MD MICROBIOLOGY - GENERAL ORDERABLES Final Result Performing Organization Address [facility] Co de Phone Number [facility]
[address] [place] [address], * Scan Slide (04/08/2025 8:41 AM EDT) [...] City/[facility]/ZIP Co de Phone Number [facility]
[address] [place] [address], [place] [phone] * FL C Arm During Surgery (04/07/2025 9:32 PM EDT) Narrative SYSTEMGENERATED, DOCUMENTATION - 04/07/2025 9:38 PM EDT This procedure was auto-finalized with no dictation required. us Sushil Dean Jr., MD IMG FLUOROSCOPY ORDERAB LES Final Result * Tissue / Bone Culture - Tissue, Leg, Right (04/07/2025 9:13 PM EDT) Tissue Culture No growth at 3 days ALIZA 04/11/2025 10:36 AM EDT [facility] Gram Stain Rare (1+) WBCs seen 04/11/2025 10:36 AM EDT [facility] Gram Stain No organisms seen 04/11/2025 10:36 AM EDT [facility] Tissue Structure of right lower limb / Unknown 04/07/2025 9:13 PM EDT 04/08/2025 4:54 AM EDT us Sushil Dean Jr., MD MICROBIOLOGY - GENERAL ORDERABLES Final Result [facility]
[address] [place] [address], [facility]
[address] [place] [address], * BH AN ETT AIRWAY (04/07/2025 8:44 [...] [place] 04/07/2025 9:58 AM EDT Workstation ID: [id number] Narrative 04/07/2025 9:58 AM EDT MRI TIBIA [...] [place] 04/07/2025 9:58 AM EDT Workstation ID: [id number] Sushil Dean Jr., MD IMG MRI ORDERABLES Mary Beth l Result * Potassium (04/06/2025 7:16 PM EDT) Potassium 4.0 3.5 - 5.2 mmol/L 04/06/2025 7:53 PM EDT [facility] Blood Venipuncture / Unknown 04/06/2025 7:16 PM EDT 04/06/2025 7:35 PM EDT Jason Álvarez DO LAB BLOOD ORDERABLES Final Resul t Performing Organization Address City/[facility]/ZIP Co de Phone Number [facility]
[address] [place] [address], * CK (04/05/2025 12:15 PM EDT) Creatine Kinase 140 20 - 200 U/L 04/05/2025 1:31 PM EDT [facility] Blood Venipuncture / Unknown 04/05/2025 12:15 PM EDT 04/05/2025 1:03 PM EDT Carlton Mead MD LAB BLOOD ORDERABLES Final R esult Performing Organization Address City/[facility]/ZIP Co de Phone Number [facility]
[address] [place] [address], * (ABNORMAL) aPTT (04/05/2025 3:54 AM EDT) [...] 0.5 U/ml are 60 to 70 seconds. [employer] LAB BLOOD ORDERABLES Final R esult Performing Organization Address City/[facility]/ZIP Co de Phone Number [facility]
[address] [place] [address], * (ABNORMAL) Protime-INR (04/05/2025 12:18 AM EDT) Pathologist [facility] Protime 15.9(H) 12.2 - 15.3 Seconds 04/05/2025 12:53 AM EDT [facility] INR 1.19(H) 0.89 - 1.12 04/05/2025 12:53 AM EDT [facility] Blood Venipuncture / Unknown 04/05/2025 12:18 AM EDT 04/05/2025 12:37 AM EDT [facility] [employer] LAB BLOOD ORDERABLES Final R esult Performing Organization Address City/[facility]/ZIP Co de Phone Number [facility]
[address] [place] [address], * POC Creatinine (04/04/2025 2:49 PM EDT) Pathologist [facility] Creatinine 1.10 0.60 - 1.30 mg/dL 04/07/2025 7:14 PM EDT [facility] Comment:Serial Number: [id number] Venous Blood 04/04/2025 2:49 PM EDT 04/07/2025 7:14 PM EDT Jason Álvarez DO POINT OF CARE TEST ORDERABLES Fi nal Result Performing Organization Address [facility] Co de Phone Number [facility]
[address] [place] [address], * (ABNORMAL) Sedimentation Rate (04/04/2025 2:47 PM EDT) Sed Rate 51(H) 0 - 15 mm/hr 04/04/2025 3:06 PM EDT [facility] Blood Venipuncture / Unknown 04/04/2025 2:47 PM EDT 04/04/2025 2:52 PM EDT Mario Crowley LAB BLOOD ORDERABLES Fin al Result Performing Organization Address [facility] de Phone Number [facility]
[address] [place] [address], * (ABNORMAL) C-reactive Protein (04/04/2025 2:47 PM EDT) C-Reactive Protein 8.57(H) 0.00 - 0.50 mg/dL 04/04/2025 3:26 PM EDT [facility] Blood Venipuncture / Unknown 04/04/2025 2:47 PM EDT 04/04/2025 2:52 PM EDT Mario Crowley DO LAB BLOOD ORDERABLES Fin al Result Performing Organization Address [facility] Co de Phone Number [facility]
[address] [place] [address], from Last 3 Months Additional Health Concerns [...] Of Support Discussed With: Patient Care Teams Inspecting Engineer Relationship Specialty Start Date End Date Provider, No Known [facility] [place] [address] PCP - General 05/09/23
--- OUTSIDE RECORDS SUMMARY | 2025-04-23 09:32 | XMS_ITS | Encounter Summary ---
Author Organization Healthcare Address [address] [place] [address] Care Team Providers Care Roofing Sales Representative Name Role Phone Unavailable Primary Care Provider Unavailabl e Encounter Details Date Type Department Care Team (Late st Contact Info) Description 10/01/2022 Lab Requisition [facility] [address] [place] [address] Sushil Dean MD [address] [facility] [place] [address] Encounter for general adult medical examination without [...] has been identified using the FDA Approved Cross[employer] [place] System The organism value for this [...] 10/04/2022 2:17 PM EDT Refer to culture [facility] [employer] [id number] FOR SUSCEPTIBILITIES ON NEELIMA ALBICANS us Sushil Dean MD LAB MICROBIOLOGY - GENERAL O RDERABLES Final Result [facility] [address] [place] [address] documented in this encounter Visit Diagnoses Diagnosis Encounter for general adult medical examination without abnormal findings documented in this encounter
--- OUTSIDE RECORDS SUMMARY | 2025-04-23 09:32 | XMS_ITS | Encounter Summary ---
Author Organization Healthcare Address [address] [place] [address] Care Team Providers Care Lumpia Wrapper Maker Name Role Phone Unavailable Primary Care Provider Unavailabl e Encounter Details Date Type Department Care Team (Late st Contact Info) Description 07/20/2022 Lab Requisition [facility] [address] [place] [address] Sushil Dean MD [address] [place] [address] Encounter for general adult medical examination without [...]
--- OUTSIDE RECORDS SUMMARY | 2025-04-23 09:32 | XMS_ITS | Encounter Summary ---
Author Organization Healthcare Address [address] [place] [address] Care Team Providers Care Box Cutter Name Role Phone Unavailable Primary Care Provider Unavailabl e Encounter Details Date Type Department Care Team (Late st Contact Info) Description 07/20/2022 Lab Requisition [facility] [address] [place] [address] Sushil Dean MD [address] [place] [address] Encounter for general adult medical examination without [...] at day 4 07/27/2022 11:32 AM EST [facility] Bone Specimen from bone / Unknown 07/20/2022 1:36 PM EST 07/20/2022 5:52 PM EST us Sushil Dean MD LAB MICROBIOLOGY - GENERAL O RDERABLES Final Result Performing Organization Address [facility] Co de Phone Number [facility] [address] [place] [address] * Bone Culture and Gram Stain (07/20/2022 1:36 PM EST) Culture No growth at day 4 2022 9:16 AM EST [facility] Gram Stain Result Rare Polymorphonuclear leukocytes 07/24/2022 9:16 AM EST [facility] Gram Stain Result No organisms seen 07/24/2022 9:16 AM EST [facility] Bone Specimen from bone / Unknown 07/20/2022 1:36 PM EST 07/20/2022 5:52 PM EST us Sushil Dean MD LAB MICROBIOLOGY - GENERAL O RDERABLES Final Result Performing Organization Address [facility] Co de Phone Number [facility] [address] [place] [address] documented in this encounter Visit Diagnoses Diagnosis Encounter for general adult medical examination without abnormal findings documented in this encounter
--- OUTSIDE RECORDS SUMMARY | 2025-04-23 09:32 | XMS_ITS | Encounter Summary ---
Author Organization [facility] Address [address] [place] [address] Care Team Providers Care Mechanic And Welder Name Role Phone Unavailable Primary Care Provider Unavailabl e Encounter Details Date Type Department Care Team (Late st Contact Info) Description 10/03/2022 [facility] [address] [place] [address] Dalila Cox MD [address] [place], [place] [id number] Encounter for general adult medical examination without [...] Culture Neelima albicans(A) 10/05/2022 11:58 AM EDT [facility] Comment: This result was determined by MALDI tof Mass spectrometry. This assay was developed and its performance characteristics determined by [facility] as appropriate for clinical purposes. [...] Edited Result - Final [facility] [address] [place] [address] documented in this encounter Visit Diagnoses Diagnosis Encounter for general adult medical examination without abnormal findings documented in this encounter
--- OUTSIDE RECORDS SUMMARY | 2025-04-23 09:32 | XMS_ITS | Encounter Summary ---
Author Organization Healthcare Address [address] [place] [address] Care Team Providers Care Laborer Wrecking And Salvaging Name Role Phone Unavailable Primary Care Provider Unavailabl e Encounter Details Date Type Department Care Team (Late st Contact Info) Description 10/19/2022 Lab Requisition [facility] [address] [place] [address] Sushil Dean MD [address] [place] [address] Encounter for general adult medical examination without [...] by MALDI tof mass spectrometry using the Curiosidy database and is for research use only. The organism value for this result has been updated. These results have been appended to the previously preliminary verified report. Bone Specimen from bone / Unknown 10/19/2022 5:17 PM EDT 10/19/2022 9:49 PM EDT Sushil Dean MD LAB MICROBIOLOGY - GENERAL O RDERABLES Final Result Performing Organization Address [facility] de Phone Number [facility] [address] [place] [address] * Bone Culture and Gram Stain (10/19/2022 5:17 PM EDT) Culture No growth at day 4 2022 8:14 AM EDT [facility] Gram Stain Result Few Polymorphonuclear leukocytes 10/23/2022 8:14 AM EDT [facility] Gram Stain Result No organisms seen 10/23/2022 8:14 AM EDT [facility] Bone Specimen from bone / Unknown 10/19/2022 5:17 PM EDT 10/19/2022 9:49 PM EDT Sushil Dean MD LAB MICROBIOLOGY - GENERAL O RDERAADDI Final Result Performing Organization Address [facility] Phone Number [facility] [address] [place] [address] documented in this encounter Visit Diagnoses Diagnosis Encounter for general adult medical examination without abnormal findings documented in this encounter
--- OUTSIDE RECORDS SUMMARY | 2025-04-23 09:32 | XMS_ITS | Encounter Summary ---
Author Organization Healthcare Address [address] [place] [address] Care Team Providers Care Nursing Home Assistant Administrator Name Role Phone Unavailable Primary Care Provider Unavailabl e Encounter Details Date Type Department Care Team (Late st Contact Info) Description 05/13/2023 Lab Requisition [facility] [address] [place] [address] Sushil Dean MD [address] [facility]. [address] [place] [address] Encounter for general adult medical examination without [...] O RDERABLES Final Result Performing Organization Address [facility] Co de Phone Number [facility] [address] [place] [address] * Anaerobic Culture (05/13/2023 9:17 AM EDT) Culture No growth at day 4 05/20/2023 10:35 AM EST [facility] Bone 05/13/2023 9:17 AM EDT 05/13/2023 1:25 PM EDT us Sushil Dean MD LAB MICROBIOLOGY - GENERAL O RDERABLES Final Result Performing Organization Address [facility] de Phone Number [facility] [address] [place] [address] * Bone Culture and Gram Stain (05/13/2023 [...] O RDERABLES Final Result Performing Organization Address [facility] de Phone Number [facility] [address] [place] [address] documented in this encounter Visit Diagnoses Diagnosis Encounter for general adult medical examination without abnormal findings documented in this encounter
--- OUTSIDE RECORDS SUMMARY | 2025-04-23 09:32 | XMS_ITS | Clinical Summary ---
Author Organization Healthcare Address [address] [place] [address] Care Team Providers Care Knee Bolter Name Role Phone Unavailable Primary Care Provider [...]
--- OUTSIDE RECORDS SUMMARY | 2025-04-23 09:32 | XMS_ITS | Encounter Summary ---
Author Organization Healthcare Address [address] [place] [address] Care Team Providers Care Chairman Ceo Name Role Phone Unavailable Primary Care Provider Unavailabl e Encounter Details Date Type Department Care Team (Late st Contact Info) Description 05/17/2023 Lab Requisition [facility] [address] [place] [address] Sushil Dean MD [address] [facility] [address] [place] [address] Encounter for general adult medical examination without [...] O RDERABLES Final Result Performing Organization Address City/[facility] Co de Phone Number [facility] [address] [place] [address] * Bone Culture and Gram Stain (05/17/2023 [...] O RDERABLES Final Result Performing Organization Address [facility] Co de Phone Number [facility] [address] [place] [address] documented in this encounter Visit Diagnoses Diagnosis Encounter for general adult medical examination without abnormal findings documented in this encounter
--- OUTSIDE RECORDS SUMMARY | 2025-04-23 09:32 | XMS_ITS | Encounter Summary ---
Author Organization [facility] Address [address] [place] [address] Care Team Providers Care Fruit Dumper Name Role Phone Provider, No Known Primary [...] 2:25 PM EDT Cherri Grimm RN * [place] Suicide Severity Rating Scale (Screener/Recent Self-Report) Question [...] as of this encounter Care Teams Fruit Dumper Relationship Specialty Start Date End Date Provider, No Known [facility] [place] [address] PCP - General 05/09/23 documented as of this encounter
--- OUTSIDE RECORDS SUMMARY | 2025-04-23 09:32 | XMS_ITS | Encounter Summary ---
Author Organization Healthcare Address [address] [place] [address] Care Team Providers Care Child Adolescent Care Name Role Phone Unavailable Primary Care Provider Unavailabl e Encounter Details Date Type Department Care Team (Late st Contact Info) Description 08/12/2022 Lab Requisition [facility] [address] [place] [address] uSshil Dean MD [address] [place] [address] Encounter for general adult medical examination without [...] has been identified using the FDA Approved [employer] [place] System The organism value for this [...] O ERIC Final Result Performing Organization Address City/[facility] de Phone Number [facility] [address] [place] [address] * Bone Culture and Gram Stain (08/12/2022 [...] O RDERABLES Final Result Performing Organization Address City/[facility] de Phone Number [facility] [address] [place] [address] documented in this encounter Visit Diagnoses Diagnosis Encounter for general adult medical examination without abnormal findings documented in this encounter
--- OUTSIDE RECORDS SUMMARY | 2025-04-23 09:32 | XMS_ITS | Patient Health Record ---
[facility] Organization [facility] [address] [facility] [address] [place] [id number] Care Team Providers Care Transitions Manager Rn Name Role Phone Zeeshan Salazar Primary Care Provider [phone] Allergies No Known Allergies Medications Medication SIG [...] W/U Status Risk Notes Problem Essential hypertension (10753248) HTN [Hypertension] (401.9) Active confirmed appears resolved Problem Hypothyroidism (22435485) Hypothyroidism NOS (244.9) Active confirmed Problem Hyperlipidemia (37809733) Hyperlipidemia (272.4) Active confirmed Problem Constipation (45002217) Constipation, unspecified constipation type (K59.00) Active confirmed Problem History of pulmonary embolism on long-term anticoagulation therapy (86788390449731730 ) Hx pulmonary embolism (Z86.711) Active confirmed Problem Long-term current use of anticoagulant (314152200) Current use of porter luggage anticoagulation (Z79.01) Active confirmed Problem Adjustment disorder with anxious mood (03063764) Adjustment disorder with anxious mood (F43.22) Active confirmed Problem History of pulmonary embolus (491705123) History of pulmonary embolus (PE) (Z86.711) Active confirmed Problem Methicillin resistant Staphylococcus aureus infection (disorder) (870378553) Infection of wound due to methicillin resistant Staphylococcus aureus (MRSA) (A49.02) Active confirmed Problem Arthritis of knee (600170719) Arthritis of knee (M17.10) Active confirmed Problem Amputated below knee (714061195) 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
[2025-04-23 09:43] VITALS: BP 98/61; PULSE 71; RESP 20; TEMP 36.8; O2SAT 96
[2025-04-23 10:28] VITALS: BP 100/56; PULSE 65; RESP 18; O2SAT 97
== END 2025-04-23 23:59 | disposition home or self-care (01) ==
LOC: INF 09:19
PROVIDERS: PCP Nurse Practitioner Family; Visit Provider Internal Medicine Infectious Disease
DX: L03.115 Cellulitis of right lower limb (principal); L02.415 Cutaneous abscess of right lower limb; Z89.511 Acquired absence of right leg below knee; D68.2 Hereditary deficiency of other clotting factors; I10 Essential (primary) hypertension; E78.5 Hyperlipidemia, unspecified; F39 Unspecified mood [affective] disorder
CPT/HCPCS: 96365; J0878

== ENCOUNTER 2025-04-24 08:13 | Outpatient (CLI) | payer MEDICARE, SELFPAY ==
--- OUTSIDE RECORDS SUMMARY | 2023-10-25 12:15 | XMS_ITS ---
Author Organization [facility] Address [address] [place] [address] YVON Sykes [phone] Care Team Providers Care Analytical Sciences Director Name Role Phone Zeeshan Salazar Primary Care Provider Macario Burkett [phone] Allergies No Known Allergies REASON FOR VISIT check up BP Encounters Encounter Location Date Provider Diagnosis [facility] [address] [place] [address] YVON Sykes [id number] 10/25/2023 Macario Burkett Plan Of Treatment No Information Progress Notes * MITCHELLWonDOB: [birth year] (44 yo M)Acc No.[id number]:10/25/2023 Progress Notes Patient: Won SPANN Provider: Colleen Burkett M.D. :1980 A ge:43 Y S ex:Male Date:10/25/2023 Address:[address] [place] [address] Onel THACKER [id number] Pcp:Zeeshan Salazar Subjective: * Chief Complaints: * [...] alive, hypertension. M aternal Grand Mother: HBP, [place]. Brother with HBP. * Social History: C URRENT TOBACCO USE S moking Status: Patient does NOT smoke. C affeine: no. Alcohol: No. * Allergies: N .K.D.A. Objective: * Vitals: Assessment: Plan: * Treatment: * Images: Billing Information: * Visit Code: * Procedure Codes: * Electronic signature of Micaela Burkett MD on 04/24/2025 at 08:18 AM EDT Sign off status: Pending * Provider: Colleen Burkett M.D. Date: 0 10/25/2023 Generated for Nany jorgensen/Elaine/Lisbethitting on: 1 08:18 AM EDT
--- OUTSIDE RECORDS SUMMARY | 2023-12-12 05:00 | XMS_ITS ---
Author Organization Ayaka Address 1210 [facility] 36 [facility] 2C [place] [phone] Care Team Providers Care Open Winder Name Role Phone Zeeshan Salazar Primary Care Provider Macario Burkett [phone] REASON FOR VISIT 6 Month Check Up Encounters Encounter Location Date Provider Diagnosis [place] 1210 [facility] [address] [place] [phone] 12/12/2023 Macario Burkett Plan Of Treatment No Information Progress Notes * Won MEDRANO ZeeshanDOB: [birth year] (44 yo M)Acc No.[id number]:12/12/2023 Progress Notes Patient: Won SPANN Provider: Colleen Burkett M.D. :1980 A ge:43 Y S ex:Male Date:12/12/2023 Address:[address] [place] [address] Onel [id number] Pcp:Zeeshan Salazar Subjective: * Chief Complaints: * 1 . 6 Month Check Up. * Medical History: Objective: * Vitals: Assessment: Plan: * Treatment: * Images: Billing Information: * Visit Code: * Procedure Codes: * Electronic signature of Micaela Burkett MD on 04/24/2025 at 08:18 AM EDT Sign off status: Pending * Provider: Colleen Burkett M.D. Date: 12/12/2023 Generated for Nany jorgensen/Elaine/Pro on: 1 08:18 AM EDT
--- OUTSIDE RECORDS SUMMARY | 2025-04-04 16:10 | XMS_ITS | Encounter Summary ---
Author Organization [facility] Address [address] [place] [address] Care Team Providers Care Shipboard Intelligence Analyst Name Role Phone Provider, No Known Primary Care Provider Unavail able Reason for Visit * Reason Comments Leg Swelling * Auth/Cert Specialty Diagnoses / Procedures Referred By Contlevy t Referred To Contact Diagnoses Right BKA infection Referral ID Status Reason Start Date Expiration Date Visits Re quested Visits Authorized [id number] 1 1 Encounter Details Date Type Department Care Team (Late st Contact Info) Description 04/04/2025 4:10 PM EDT - 04/11/2025 1:58 PM EDT Hospital Encounter [address] [place] [address] Mario Crowley, [address] [place] [address] Leonora Shepherd MD [address] [address] Jason Álvarez DO [address] [address] Jadyn Richardson DO [address] [address] Cellulitis of right lower extremity (Primary Dx); Below-knee amputation of right lower extremity, initial encounter; Right BKA infection Discharge Disposition: Home or Self Care Social History Tobacco Use Types Packs/Day Years Used Date Smoking Tobacco: Never Smokeless Tobacco: Never Tobacco Cessation:Counseling Given: Not Answered Alcohol Use Standard Drinks/Week Comments Not Currently 0 (1 standard drink = 0.6 oz pur e alcohol) [facility] Utilities Answer Date Recorded In the past 12 months has th e [employer], gas, oil, or water company threatened to [...] or training? Not on file Preferred Language Tongan 04/07/2025 Sex and Gender Information Value Date [...] 2:25 PM EDT Cherri Grimm RN * [place] Suicide Severity Rating Scale (Screener/Recent Self-Report) Question [...] from the original note were not included. [facility] Medicine Services DISCHARGE SUMMARY Patient [...] Date/Time Wound Culture - Swab, Leg, Right [[id number]] (Abnormal) (Susceptibility) Collected: 04/07/252106 Lab Status: Final [...] Units Date/Time FL C Arm During Surgery [[id number]] Resulted: 04/07/252137 Updated: 04/07/252137 Narrative: This procedure was auto-finalized with no dictation required. MRI Tibia Fibula Right With & Without Contrast [[id number]] Collected: 04/07/25 0938 Updated: 04/07/25 1001 Narrative: [...] Buenrostro 04/07/2025 9:58 AM EDT Workstation ID: [id number] MRI Tibia Fibula Right With & Without Contrast [[id number]] Collected: 04/04/252256 Updated: 04/04/252302 Narrative: MRI TIBIA [...] MD 04/04/2025 11:00 PM EDT Workstation ID: [id number] Pending Labs Order Current Status Fungus Culture [...] FLOMAX 1 capsule, Nightly Stop These Medications [facility] capsule doxycycline 100 MG tablet Commonly [...] Male) Date of 1980 Social Security Number [id number] [place] [address] [employer] Unknown Marital Status Unknown Admission Date 04/04/2025 Admission Type Emergency Admitting Provider Jadyn Richardson DO Attending Provider Jadyn Richardson DO Department, Room/Bed [address], S565/1 Discharge Date Discharge Disposition Discharge [...] Group [place] [id number] Payor Plan Address Payor Plan Phone Number Payor Plan Fax Number Effective Dates [employer] [address] [address] 08/10/2023 - None Entered [place] [address] Subscriber Name Subscriber Date Member ID WON DENNIS 1980 [id number] Emergency Contacts Nude Model (Rel.) Home Phone Work Phone Mobile Phone Avril Dennis (Spouse) -- -- [phone] LewRobert (Relative) -- -- [phone] [facility] [address] Patient: ROOM: [facility] Won Dennis [address] [facility] [address] : 1980 SSN: [id number] Sex: M PCP: Provider, No Known Emergency Contact Information Name Relation Home Work Mobile Avril Dennis Spouse [phone] Other Contacts Name Relation Home Work Mobile Robert Hackett Relative [phone] INSURANCE PAYOR PLAN GROUP # SUBSCRIBER ID Primary: Secondary: MEDICARE [employer]ICAID [place] [id number] Admitting Diagnosis: 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] Order Date: Apr 09, 2025 Case Management Assembler Lay Ups Consult (Order ID: [id number]) Diagnosis: Priority: Routine Expected Date: Expiration Date: Interval: Once Count: Comments: Outpatient orders: 1. Outpatient intravenous antibiotic therapy: Daptomycin 800 mg IV daily to be supplied by [facility] 2. Home health to perform weekly PICC line dressing changes with a Biopatch or Tegaderm CHG gel dressing 3. CBC, CMP, ESR, CRP, and CPK weekly-forward results to Dr. Rubens Torres 4. Follow-up with Dr. uRbens Torres in the next 1-2 weeks 5. [...] INFECTIOUS DISEASE Progress Note Won Dennis 1980 [id number] Date of Consult: 04/10/2025 Admission Date: 04/04/2025 [...] which prompted him to seek treatment at [facility]. He is known to Dr. Dean. [...] wound 05/09/25. HDS, on Heparin gtt. Currently [facility] has been asked to manage the [...] Jr., MD, 20 mg at 04/09/25906 heparin 32172 units/250 mL (100 units/mL) in 0.45 % NaCl infusion, 18 Units/kg/hr, Intravenous, Titrated, Una ePrla, PharmD, Last Rate: 24.1 mL/hr at 04/10/253, [...] Units Date/Time FL C Arm During Surgery [[id number]] Resulted: 04/07/252137 Updated: 04/07/252137 Narrative: This procedure was auto-finalized with no dictation required. MRI Tibia Fibula Right With & Without Contrast [[id number]] Collected: 04/07/25 0938 Updated: 04/07/25 1001 Narrative: [...] Chitra 04/07/2025 9:58 AM EDT Workstation ID: [id number] Impression: Recurrent Right BKA stump abscess/cellulitis- this [...] discussed his disposition with the pharmacist at [facility] today. I will sign off Outpatient orders: 1. Outpatient intravenous antibiotic therapy: Daptomycin 800 mg IV daily to be supplied by [facility] 2. Home health to perform [...] Time: 04/10/251323 Signed Expand All Collapse All [facility] Medicine Services PROGRESS NOTE Patient [...] Date/Time Wound Culture - Swab, Leg, Right [[id number]] (Abnormal) (Susceptibility) Collected: 04/07/252106 Lab Status: Final [...] Row Name 04/06/25 1143 Sit-Stand Transfer Sit-Stand [place] (Transfers) modified independence -LM Comment, (Sit-Stand Transfer) Pt stood from recliner. Not holding onto walker, pt able to pull his pants up while balancing on his one leg. -LM Row Name 04/06/25 1143 Gait/Stairs (Locomotion) [place] Level (Gait) modified independence -LM Distance in [...] Nurse Physical Therapy Education Title: PT OT FRAME FEEDER Therapies (Done) Topic: Physical Therapy (Done) Point: [...] Description Service Date Service Provider Modifiers Qty [id number] PT EVAL LOW COMPLEXITY 3 04/06/2025 Susan [...] mg Daily 04/05/2025 -- Route: Oral heparin 69453 units/250 mL (100 units/mL) in 0.45 % [...] -- Admin Instructions: Open Order & Select [facility] Electrolyte Replacement Protocol Algorithm to View [...] Dean MD April 21 vs April 22 [facility] [address], [address] [facility], [address] Please schedule at [phone] VONDA Garcia 04/11/25 08:32 EDT Cosigned by Sushil Dean Jr., MD at 04/19/2025 10:33 AM EDT Associated attestation - Sushil Dean Jr., MD - 04/19/2025 10:33 AM EDT I have reviewed this documentation and agree. * Rosario Hill APRN - 04/10/2025 1:24 PM EDT Images from the original note were not included. [facility] Medicine Services PROGRESS NOTE Patient [...] Date/Time Wound Culture - Swab, Leg, Right [[id number]] (Abnormal) (Susceptibility) Collected: 04/07/252106 Lab Status: Final [...] mg Daily 04/05/2025 -- Route: Oral heparin 83586 units/250 mL (100 units/mL) in 0.45 % [...] -- Admin Instructions: Open Order & Select [facility] Electrolyte Replacement Protocol Algorithm to View [...] -- Admin Instructions: Open Order & Select [facility] Electrolyte Replacement Protocol Algorithm to View [...] -- Admin Instructions: Open Order & Select [facility] Electrolyte Replacement Protocol Algorithm to View [...] Dean MD April 21 vs April 22 [facility] [address], [address] [facility], [address] Please schedule at [phone] VONDA Garcia 04/10/25 09:01 EDT Cosigned by Sushil Dean Jr., MD at 04/19/2025 10:33 AM EDT Associated attestation - Sushil Dean Jr., MD - 04/19/2025 10:33 AM EDT I have reviewed this documentation and agree. * Carlton Mead MD - 04/10/2025 7:38 AM EDT Images from the original note were not included. INFECTIOUS DISEASE Progress Note Won Dennis 1980 [id number] Date of Consult: 04/10/2025 Admission Date: 04/04/2025 [...] which prompted him to seek treatment at [facility]. He is known to Dr. Dean. [...] wound 05/09/25. HDS, on Heparin gtt. Currently [facility] has been asked to manage the [...] Jr., MD, 20 mg at 04/09/25906 heparin 26169 units/250 mL (100 units/mL) in 0.45 % [...] infusion 40 mL, 40 mL, Intravenous, PRN, Cartlon Mead MD tamsulosin (FLOMAX) 24 hr capsule [...] vancomycin 2750 mg/500 mL 0.9% NS IVPB ([facility]) Ordering Provider: Mario Crowley, DO 20 [...] Units Date/Time FL C Arm During Surgery [[id number]] Resulted: 04/07/252137 Updated: 04/07/252137 Narrative: This procedure was auto-finalized with no dictation required. MRI Tibia Fibula Right With & Without Contrast [[id number]] Collected: 04/07/25 0938 Updated: 04/07/25 1001 Narrative: [...] Buenrostro 04/07/2025 9:58 AM EDT Workstation ID: [id number] Impression: Recurrent Right BKA stump abscess/cellulitis- this [...] discussed his disposition with the pharmacist at [facility] today. I will sign off Outpatient orders: 1. Outpatient intravenous antibiotic therapy: Daptomycin 800 mg IV daily to be supplied by [facility] 2. Home health to perform [...] MD 04/10/2025 07:38 EDT * Yaya Hamiltonn, [facility] - 04/10/2025 7:17 AM EDT Pharmacy to [...] from the original note were not included. [facility] Medicine Services PROGRESS NOTE Patient [...] Date/Time Wound Culture - Swab, Leg, Right [[id number]] (Abnormal) Collected: 04/07/252106 Lab Status: Preliminary result [...] Jason DO Preeti 04/09/25 * Larisa Hamilton [facility] - 04/09/2025 11:36 AM EDT Pharmacy to [...] mg Daily 04/05/2025 -- Route: Oral heparin 68521 units/250 mL (100 units/mL) in 0.45 % [...] -- Admin Instructions: Open Order & Select [facility] Electrolyte Replacement Protocol Algorithm to View [...] -- Admin Instructions: Open Order & Select [facility] Electrolyte Replacement Protocol Algorithm to View [...] -- Admin Instructions: Open Order & Select [facility] Electrolyte Replacement Protocol Algorithm to View [...] in 2 weeks for incision check, radiographs [facility] [address], [address] [facility], [address] Please schedule at [phone] VONDA Garcia 04/09/25 09:18 EDT Cosigned by Sushil Dean Jr., MD at 04/19/2025 10:33 AM EDT Associated attestation - Sushil Dean Jr., MD - 04/19/2025 10:33 AM EDT I have reviewed this documentation and agree. * Carlton Mead MD - 04/09/2025 8:25 AM EDT Images from the original note were not included. INFECTIOUS DISEASE Progress Note Won Dennis 1980 [id number] Date of Consult: 04/09/2025 Admission Date: 04/04/2025 [...] which prompted him to seek treatment at [facility]. He is known to Dr. Dean. [...] wound 05/09/25. HDS, on Heparin gtt. Currently [facility] has been asked to manage the [...] IRRIGATION; Surgeon: Sushil Dean Jr., MD; Location: [facility] OR; Service: Orthopedics; Laterality: Right; PLACEMENT OF WOUND VAC Right 04/07/2025 Procedure: WOUND VACUUM ASSISTED CLOSURE; Surgeon: Sushil Dean Jr., MD; Location: [facility] OR; Service: Orthopedics; Laterality: Right; [...] MD, 20 mg at 04/08/25 0800 heparin 61689 units/250 mL (100 units/mL) in 0.45 % [...] Units Date/Time FL C Arm During Surgery [[id number]] Resulted: 04/07/252137 Updated: 04/07/252137 Narrative: This procedure was auto-finalized with no dictation required. MRI Tibia Fibula Right With & Without Contrast [[id number]] Collected: 04/07/2538 Updated: 04/07/25 1001 Narrative: MRI [...] Buenrostro 04/07/2025 9:58 AM EDT Workstation ID: [id number] Impression: Recurrent Right BKA stump abscess/cellulitis- this [...] mg IV daily to be supplied by [facility] 2. Home health to perform [...] from the original note were not included. [facility] Medicine Services PROGRESS NOTE Patient [...] Buenrostro 04/07/2025 9:58 AM EDT Workstation ID: [id number] I have personally reviewed the therapy plans: [...] Jason Álvarez DO 04/08/25 * Larisa Hamilton [facility] - 04/08/2025 11:48 AM EDT Pharmacy to [...] -- Admin Instructions: Open Order & Select [facility] Electrolyte Replacement Protocol Algorithm to View [...] mg Daily 04/05/2025 -- Route: Oral heparin 58230 units/250 mL (100 units/mL) in 0.45 % [...] -- Admin Instructions: Open Order & Select [facility] Electrolyte Replacement Protocol Algorithm to View [...] -- Admin Instructions: Open Order & Select [facility] Electrolyte Replacement Protocol Algorithm to View [...] -- Admin Instructions: Open Order & Select [facility] Electrolyte Replacement Protocol Algorithm to View [...] not included. INFECTIOUS DISEASE Progress Note Won eDnnis 1980 [id number] Date of Consult: 04/08/2025 Admission Date: 04/04/2025 [...] which prompted him to seek treatment at [facility]. He is known to Dr. Dean. [...] wound 05/09/25. HDS, on Heparin gtt. Currently [facility] has been asked to manage the [...] IRRIGATION; Surgeon: Sushil Dean Jr., MD; Location: [facility] OR; Service: Orthopedics; Laterality: Right; PLACEMENT OF WOUND VAC Right 04/07/2025 Procedure: WOUND VACUUM ASSISTED CLOSURE; Surgeon: Sushil Dean Jr., MD; Location: [facility] OR; Service: Orthopedics; Laterality: Right; [...] 2 puff, Inhalation, BID - RT, Sushil eDan Jr., MD, 2 puff at 04/06/25 1904 [...] Jr., MD, 20 mg at 04/07/25950 heparin 03340 units/250 mL (100 units/mL) in 0.45 % [...] Units Date/Time FL C Arm During Surgery [[id number]] Resulted: 04/07/252137 Updated: 04/07/252137 Narrative: This procedure was auto-finalized with no dictation required. 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 (Treated by ID in [place] Dr. Harris). Dr. Torres treated him with [...] from the original note were not included. [facility] Medicine Services PROGRESS NOTE Patient [...] Buenrostro 04/07/2025 9:58 AM EDT Workstation ID: [id number] I have personally reviewed the therapy plans: [...] Jason Álvarez DO 04/07/25 * Larisa Hamilton [facility] - 04/07/2025 11:56 AM EDT Pharmacy to [...] INFECTIOUS DISEASE Progress Note Won Dennis 1980 [id number] Date of Consult: 04/07/2025 Admission Date: 04/04/2025 [...] which prompted him to seek treatment at [facility]. He is known to Dr. Dean. [...] wound 05/09/25. HDS, on Heparin gtt. Currently [facility] has been asked to manage the [...] Application, 1 Application, Topical, Q12H, Ayah Valentin, BATCHER OPERATOR, 1 Application at 04/06/252101 DAPTOmycin (CUBICIN) 800 [...] Shepherd MD, 20 mg at 04/06/25899 heparin 10101 units/250 mL (100 units/mL) in 0.45 % NaCl infusion, 18 Units/kg/hr, Intravenous, Titrated, Cherri Beatty, [facility], Last Rate: 24.1 mL/hr at 04/07/258, 18 [...] With & Without Contrast - In process [[id number]] Resulted: 04/07/25828 Updated: 04/07/25828 This result has not been signed. Information might be incomplete. 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 (Treated by ID in [place] Dr. Harris). Dr. Torres treated him with [...] Mead MD 04/07/2025 08:47 EDT * Sushil eDan Jr., MD - 04/07/2025 6:07 AM EDT [...] mg Daily 04/05/2025 -- Route: Oral heparin 30447 units/250 mL (100 units/mL) in 0.45 % [...] -- Admin Instructions: Open Order & Select [facility] Electrolyte Replacement Protocol Algorithm to View [...] -- Admin Instructions: Open Order & Select [facility] Electrolyte Replacement Protocol Algorithm to View [...] MD 04/07/25 06:07 EDT * Cherri Beatty [facility] - 04/06/2025 1:47 PM EDT Pharmacy to [...] from the original note were not included. [facility] Medicine Services PROGRESS NOTE Patient [...] MD 04/04/2025 11:00 PM EDT Workstation ID: [id number] I have personally reviewed the therapy plans: [...] mg Daily 04/05/2025 -- Route: Oral heparin 99532 units/250 mL (100 units/mL) in 0.45 % [...] -- Admin Instructions: Open Order & Select [facility] Electrolyte Replacement Protocol Algorithm to View [...] INFECTIOUS DISEASE follow up. Won Dennis 1980 [id number] Date of Consult: 04/06/2025 Admission Date: 04/04/2025 [...] which prompted him to seek treatment at [facility]. He is known to Dr. Dean. [...] wound 05/09/25. HDS, on Heparin gtt. Currently [facility] has been asked to manage the [...] 10 mg, 10 mg, Rectal, Daily PRN, Leoonra Shepherd MD budesonide-formoterol (SYMBICORT) 160-4.5 MCG/ACT inhaler [...] Application, 1 Application, Topical, Q12H, Ayah Valentin, BATCHER OPERATOR, 1 Application at 04/06/25 0859 DAPTOmycin (CUBICIN) [...] MD, 20 mg at 04/06/25 0900 heparin 37432 units/250 mL (100 units/mL) in 0.45 % NaCl infusion, 18 Units/kg/hr, Intravenous, Titrated, Cherri Beatty [facility], Last Rate: 24.1 mL/hr at 04/06/25 1420, [...] Tibia Fibula Right With & Without Contrast [[id number]] Collected: 04/04/252256 Updated: 04/04/252302 Narrative: MRI TIBIA [...] represent a small area of phlegmonous change ([id number] image 10) measuring approximately 1.6 cm which [...] MD 04/04/2025 11:00 PM EDT Workstation ID: [id number] Impression: 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 (Treated by ID in [place] Dr. Harris). Dr. Torres treated him with [...] MD 04/06/2025 16:00 EDT * Cherri Beatty, [facility] - 04/05/2025 3:01 PM EDT Pharmacy to [...] from the original note were not included. [facility] Medicine Services PROGRESS NOTE Patient [...] MD 04/04/2025 11:00 PM EDT Workstation ID: [id number] I have personally reviewed the therapy plans: [...] from the original note were not included. [facility] Medicine Services HISTORY AND PHYSICAL [...] MD 04/04/2025 11:00 PM EDT Workstation ID: [id number] Assessment & Plan Assessment & Plan Won [...] 4FR PICC placed by Rhoda Bonner RN [facility], tip verified by 3CG see LDA. * Sushil Dean Jr., MD - 04/05/2025 8:07 AM EDTAssociated Order(s): IP CONSULT TO ORTHOPEDIC SURGERY [facility], [facility] [address] [address] Orthopedic Consult Patient: Won Dennis Date of Admission: 04/04/2025 4:10 PM Date of : 1980 Attending Physician: Jason Álvarez DO Consulting Physician: Sushil Dean Jr, MD Chief Complaint: 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 male admitted to [facility] with 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]. He [...] was evaluated in the emergency department in [place], was discharged with instructions for follow-up. He [...] tablet by mouth Daily. 04/03/2025 Morning Lactobacillus-Inulin ([facility] FlowJob) capsule Take 200 mg by mouth Daily. [...] MD 04/04/2025 11:00 PM EDT Workstation ID: [id number] Assessment: Right BKA infection 44-year-old male with [...] DISEASE CONSULT/INITIAL HOSPITAL VISIT Won Dennis 1980 [id number] Date of Consult: 04/05/2025 Admission Date: 04/04/2025 [...] which prompted him to seek treatment at [facility]. He is known to Dr. Dean. [...] wound 05/09/25. HDS, on Heparin gtt. 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 (Treated by ID in [place] Dr. Harris). Dr. Torres treated him with [...] infection POSTOP DIAGNOSIS: Same. PROCEDURE: Right Right 95107: Secondary closure below-knee amputation SURGEON: Sushil Dean MD OPERATIVE TEAM: Street Supervisor: Susi Grullon RN Scrub Person: Mary Paredes Scrub Person Extra: Hortencia Toribio Other: Katt Gotti RN; Charis Neville RN ANESTHETIST: Anesthesiologist: Ulises Hoffman MD MESH CUTTER: Stan Casillas CRNA Student Nurse Delicatessen Store Manager: Karol Albert SRNA ANESTHESIA: Choice ESTIMATED BLOOD [...] CULTURE (Canceled) Sushil Dean Jr., MD 04/08/25 8895 Description: RIGHT LEG DEEP WOUND FOR CULTURE [...] Jr., MD - 04/07/2025 9:03 PM EDT [facility] [address] [address] OPERATIVE REPORT PATIENT NAME: Won Dennis DATE OF : 1980 PREOP DIAGNOSIS: Right Right below knee amputation stump infection POSTOP DIAGNOSIS: Same. PROCEDURE: Right Right 94121: Incision and drainage of surgical site infection 16067: Debridement of skin, subcutaneous tissue, muscle 04302: Wound vacuum-assisted closure SURGEON: Sushil Dean MD OPERATIVE TEAM: Street Supervisor: Anum Sanchez RN Scrub Person: Hortencia Toribio; Gerald Ivey CANDLE POURER: Anesthesiologist: Luci Alonso DO ANESTHESIA: General ESTIMATED [...] ago swellling of the area. seen at [facility] yesterday for CT and US, here [...] this chart in the absence of a buffer automatic. No orders to display RADIOLOGY: [x] Radiologist's [...] 04/11/2025 1:30 PM EDT Continued Stay Note [facility] Patient Name: Won Dennis Today's Date: 04/11/2025 Admit Date: 04/04/2025 Plan: Home with outpatient infusion. Discharge Plan Row Name 04/11/25 1155 Plan Plan Home with outpatient infusion. Final Discharge Disposition Code 01 - home or self-care Final Note Patient discharging today. He is discharging home with outpatient infusion at [facility]. He has an appointment with [facility] at 8:00 am tomorrow. They will do PICC line dressing changes. DEBRA has spoke with Dena at [facility] today multiple times to [...] to get IV ABX at home with [facility]; however, Medicaid lapsed on 04/08. DEBRA was unaware until this morning that Medicaid has lapsed. Patient explained that he has Medicare A and B. CM spoke with KELLEE and given themhis Medicare number [id number], she sent it to Admission. DEBRA spoke with Kerri, with [facility], and explained that he had Medicare A and B. However, it will not cover home infusion. It will be $64.00 a day out of packet. Patients can go to the Infusion center at [facility], and it will cover the cost as an outpatient. He will need to go there every day for infusion. They will be able to do the patients' PICC line dressing changes and lab work. CM called [facility] infusion center they can accept patient and start him. He is known for their facility. The Facility will need to run it through his insurance first. CM faxed the orders over to [facility] at [phone]. CM will follow up with them tomorrow at [facility] to make sure they received the [...] with patient at bedside today[facility] Patient getting PICC line [...] note were not included. Discharge Planning Assessment Perkins Patient Name: Won Dennis Today's Date: 04/07/2025 [...] family Patient/Family Anticipated Services at Transition case monitoradmissions manager rn Anticipated family or friend will provide Discharge Needs Assessment Equipment Currently Used at Home glucometer;shower chair;pulse ox;bp cuff;prosthesis;crutches Equipment Needed After Discharge none Discharge Plan Row Name 04/07/25 1144 Plan Plan Home Patient/Family in Agreement with Plan yes Plan Comments CM spoke with patient at bedside today. Patient lives with and his [address] [facility]. 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 He has walker, cane, shower chair, and crutches. He requested a wheelchair for home. CM will order wheelchair through [employer]. He is not current with home health services. PCP is Dr. Jordan. Insurance is [facility] Medicaid MD. Patient discharge plan is home with priavte transport. CM will follow for any discharge needs. Final Discharge Disposition Code 01 - home or self-care Continued Care and Services - Admitted Since 04/04/2025 No active coordination exists. Demographic Summary Row Name 04/07/25 1143 General Information Arrived From hospital Preferred Language Tongan Functional Status Row Name 04/07/25 1143 Functional [...] CBC Auto Differential (04/11/2025 3:40 AM EDT) [facility] WBC 7.87 3.40 - 10.80 10*3/mm3 04/11/2025 4:02 AM EDT [facility] RBC 4.70 4.14 - 5.80 10*6/mm3 04/11/2025 4:02 AM EDT [facility] Hemoglobin 12.8(L) 13.0 - 17.7 g/dL 04/11/2025 4:02 AM EDT [facility] Hematocrit 40.5 37.5 - 51.0 % 04/11/2025 4:02 AM EDT [facility] MCV 86.2 79.0 - 97.0 fL 04/11/2025 4:02 AM EDT [facility] MCH 27.2 26.6 - 33.0 pg 04/11/2025 4:02 AM EDT [facility] MCHC 31.6 31.5 - 35.7 g/dL 04/11/2025 4:02 AM EDT [facility] RDW 12.9 12.3 - 15.4 % 04/11/2025 4:02 AM EDT [facility] RDW-SD 40.5 37.0 - 54.0 fl 04/11/2025 4:02 AM EDT [facility] MPV 9.2 6.0 - 12.0 fL 04/11/2025 4:02 AM EDT [facility] Platelets 267 140 - 450 10*3/mm3 04/11/2025 4:02 AM [facility] Neutrophil % 59.5 42.7 - 76.0 % 04/11/2025 4:02 AM [facility] Lymphocyte % 26.3 19.6 - 45.3 % 04/11/2025 4:02 AM [facility] Monocyte % 9.3 5.0 - 12.0 % 04/11/2025 4:02 AM [facility] Eosinophil % 4.1 0.3 - 6.2 % 04/11/2025 4:02 AM [facility] Basophil % 0.4 0.0 - 1.5 % 04/11/2025 4:02 AM [facility] Immature Grans % 0.4 0.0 - 0.5 % 04/11/2025 4:02 AM [facility] Neutrophils, Absolute 4.69 1.70 - 7.00 10*3/mm3 04/11/2025 4:02 AM [facility] Lymphocytes, Absolute 2.07 0.70 - 3.10 10*3/mm3 04/11/2025 4:02 AM [facility] Monocytes, Absolute 0.73 0.10 - 0.90 10*3/mm3 04/11/2025 4:02 AM [facility] Eosinophils, Absolute 0.32 0.00 - 0.40 10*3/mm3 04/11/2025 4:02 AM [facility] Basophils, Absolute 0.03 0.00 - 0.20 10*3/mm3 04/11/2025 4:02 AM [facility] Immature Grans, Absolute 0.03 0.00 - 0.05 10*3/mm3 04/11/2025 4:02 AM [facility] nRBC 0.0 0.0 - 0.2 /100 WBC 04/11/2025 4:02 AM [facility] Blood Venipuncture / Unknown 04/11/2025 3:40 AM EDT 04/11/2025 3:59 AM EDT us Sushil Dean Jr., MD LAB BLOOD ORDERABLES Fi nal Result [facility]
[address] [place] [address], * (ABNORMAL) Comprehensive Metabolic Panel (04/11/2025 3:40 AM EDT) Glucose 108(H) 65 - 99 mg/dL 04/11/2025 4:19 AM EDT [facility] BUN 12.5 6.0 - 20.0 mg/dL 04/11/2025 4:19 AM EDT [facility] Creatinine 0.68(L) 0.76 - 1.27 mg/dL 04/11/2025 4:19 AM EDT [facility] Sodium 140 136 - 145 mmol/L 04/11/2025 4:19 AM EDT [facility] Potassium 3.8 3.5 - 5.2 mmol/L 04/11/2025 4:19 AM EDT [facility] Chloride 105 98 - 107 mmol/L 04/11/2025 4:19 AM EDT [facility] CO2 28.2 22.0 - 29.0 mmol/L 04/11/2025 4:19 AM EDT [facility] Calcium 8.2(L) 8.6 - 10.5 mg/dL 04/11/2025 4:19 AM EDT [facility] Total Protein 6.1 6.0 - 8.5 g/dL 04/11/2025 4:19 AM EDT [facility] Albumin 3.1(L) 3.5 - 5.2 g/dL 04/11/2025 4:19 AM EDT [facility] ALT (SGPT) 52(H) 1 - 41 U/L 04/11/2025 4:19 AM EDT [facility] AST (SGOT) 40 1 - 40 U/L 04/11/2025 4:19 AM EDT [facility] Alkaline Phosphatase 99 39 - 117 U/L 04/11/2025 4:19 AM EDT [facility] Total Bilirubin 0.2 0.0 - 1.2 mg/dL 04/11/2025 4:19 AM EDT [facility] Globulin 3.0 gm/dL 04/11/2025 4:19 AM EDT [facility] Comment:Calculated Result A/G Ratio 1.0 g/dL 04/11/2025 4:19 AM EDT [facility] BUN/Creatinine Ratio 18.4 7.0 - 25.0 04/11/2025 4:19 AM EDT [facility] Anion Gap 6.8 5.0 - 15.0 mmol/L 04/11/2025 4:19 AM EDT [facility] eGFR 117.5 >60.0 mL/min/1.7 3 04/11/2025 4:19 AM EDT [facility] Blood Venipuncture / Unknown 04/11/2025 3:40 AM EDT 04/11/2025 3:56 AM EDT [facility] - 04/11/2025 4:19 AM EDT [...] Hill APRN LAB BLOOD ORDERABLES Final Result [facility]
[address] [place] [address], * (ABNORMAL) CBC Auto Differential (04/10/2025 3:46 AM EDT) [facility] WBC 9.60 3.40 - 10.80 10*3/mm3 04/10/2025 3:56 AM EDT [facility] RBC 4.67 4.14 - 5.80 10*6/mm3 [facility] Hemoglobin 12.9(L) 13.0 - 17.7 g/dL 04/10/2025 3:56 AM EDT [facility] Hematocrit 40.1 37.5 - 51.0 % 04/10/2025 3:[facility] MCV 85.9 79.0 - 97.0 fL 04/10/2025 3:56 [facility] MCH 27.6 26.6 - 33.0 pg 04/10/2025 3:56 AM [facility] MCHC 32.2 31.5 - 35.7 g/dL 04/10/2025 3:[facility] RDW 12.9 12.3 - 15.4 % 04/10/2025 3:56 AM [facility] RDW-SD 40.5 37.0 - 54.0 fl 04/10/2025 3:56 AM [facility] MPV 9.5 6.0 - 12.0 fL 04/10/2025 3:56 AM [facility] Platelets 227 140 - 450 10*3/mm3 04/10/2025 3:56 AM EDT [facility] Neutrophil % 59.1 42.7 - 76.0 % 04/10/2025 3:[facility] Lymphocyte % 29.0 19.6 - 45.3 % 04/10/2025 3:56 [facility] Monocyte % 8.1 5.0 - 12.0 % 04/10/2025 3:56 [facility] Eosinophil % 3.2 0.3 - 6.2 % 04/10/2025 3:56 AM EDT [facility] Basophil % 0.4 0.0 - 1.5 % 04/10/2025 3:56 AM EDT [facility] Immature Grans % 0.2 0.0 - 0.5 % 04/10/2025 3:56 AM EDT [facility] Neutrophils, Absolute 5.67 1.70 - 7.00 10*3/mm3 04/10/2025 3:56 AM EDT [facility] Lymphocytes, Absolute 2.78 0.70 - 3.10 10*3/mm3 04/10/2025 3:56 AM EDT [facility] Monocytes, Absolute 0.78 0.10 - 0.90 10*3/mm3 04/10/2025 3:56 AM EDT [facility] Eosinophils, Absolute 0.31 0.00 - 0.40 10*3/mm3 04/10/2025 3:56 AM EDT [facility] Basophils, Absolute 0.04 0.00 - 0.20 10*3/mm3 04/10/2025 3:56 AM EDT [facility] Immature Grans, Absolute 0.02 0.00 - 0.05 10*3/mm3 04/10/2025 3:56 AM EDT [facility] nRBC 0.0 0.0 - 0.2 /100 WBC 04/10/2025 3:56 AM EDT [facility] Blood Venipuncture / Unknown 04/10/2025 3:46 AM EDT 04/10/2025 3:53 AM EDT Jason Álvarez DO LAB BLOOD ORDERABLES Final Resul t [facility]
[address] [place] [address], * (ABNORMAL) Basic Metabolic Panel (04/10/2025 3:46 AM EDT) [facility] Glucose 125(H) 65 - 99 mg/dL 04/10/2025 4:20 AM EDT [facility] BUN 15.9 6.0 - 20.0 mg/dL 04/10/2025 4:20 AM T [facility] Creatinine 0.77 0.76 - 1.27 mg/dL 04/10/2025 4:20 AM T [facility] Sodium 137 136 - 145 mmol/L 04/10/2025 4:20 AM [facility] Potassium 3.9 3.5 - 5.2 mmol/L 04/10/2025 4:20 AM EDT [facility] Chloride 102 98 - 107 mmol/L 04/10/2025 4:20 AM EDT [facility] CO2 26.9 22.0 - 29.0 mmol/L 04/10/2025 4:20 AM [facility] Calcium 7.9(L) 8.6 - 10.5 mg/dL 04/10/2025 4:20 AM [facility] BUN/Creatinine Ratio 20.6 7.0 - 25.0 04/10/2025 4:20 AM [facility] Anion Gap 8.1 5.0 - 15.0 mmol/L 04/10/2025 4:20 AM [facility] eGFR 113.2 >60.0 mL/min/1.7 3 04/10/2025 4:20 AM [facility] Blood Venipuncture / Unknown 04/10/2025 3:46 AM EDT 04/10/2025 3:52 AM EDT [facility] - 04/10/2025 4:20 AM EDT [...] DO LAB BLOOD ORDERABLES Final Resul t [facility]
[address] [place] [address], * Heparin Anti-Xa (04/10/2025 3:46 AM EDT) Heparin Anti-Xa (UFH) 0.35 0.30 - 0.70 IU/ml 04/10/2025 4:23 AM EDT [facility] Blood Venipuncture / Unknown 04/10/2025 3:46 AM EDT 04/10/2025 3:53 AM EDT [facility] LAB BLOOD ORDERABLES Final R esult Performing Organization Address City/[facility]/ZIP Co de Phone Number [facility]
[address] [place] [address], * Heparin Anti-Xa (04/09/2025 10:05 AM EDT) Heparin Anti-Xa (UFH) 0.36 0.30 - 0.70 IU/ml 04/09/2025 11:12 AM EDT [facility] Blood Venipuncture / Unknown 04/09/2025 10:05 AM EDT 04/09/2025 10:[address] [facility] LAB BLOOD ORDERABLES Final R esult [facility]
[address] [place] [address], * (ABNORMAL) CBC Auto Differential (04/09/2025 4:18 AM EDT) WBC 11.00(H) 3.40 - 10.80 10*3/mm3 04/09/2025 4:50 AM [facility] RBC 4.70 4.14 - 5.80 10*6/mm3 04/09/2025 4:50 AM EDT [facility] Hemoglobin 13.0 13.0 - 17.7 g/dL 04/09/2025 4:50 AM EDT [facility] Hematocrit 40.4 37.5 - 51.0 % 04/09/2025 4:50 AM EDT [facility] MCV 86.0 79.0 - 97.0 fL 04/09/2025 4:50 AM EDT [facility] MCH 27.7 26.6 - 33.0 pg 04/09/2025 4:[facility] MCHC 32.2 31.5 - 35.7 g/dL 04/09/2025 4:50 [facility] RDW 12.8 12.3 - 15.4 % 04/09/2025 4:50 [facility] RDW-SD 39.9 37.0 - 54.0 fl 04/09/2025 4:50 AM [facility] MPV 10.0 6.0 - 12.0 fL 04/09/2025 4:50 AM [facility] Platelets 211 140 - 450 10*3/mm3 04/09/2025 4:50 [facility] Neutrophil % 74.8 42.7 - 76.0 % 04/09/2025 4:50 AM EDT [facility] Lymphocyte % 15.4(L) 19.6 - 45.3 % 04/09/2025 4:50 AM EDT [facility] Monocyte % 8.5 5.0 - 12.0 % 04/09/2025 4:50 AM EDT [facility] Eosinophil % 0.6 0.3 - 6.2 % 04/09/2025 4:50 [facility] Basophil % 0.4 0.0 - 1.5 % 04/09/2025 4:50 AM EDT [facility] Immature Grans % 0.3 0.0 - 0.5 % 04/09/2025 4:50 AM EDT [facility] Neutrophils, Absolute 8.23(H) 1.70 - 7.00 10*3/mm3 04/09/2025 4:50 AM EDT [facility] Lymphocytes, Absolute 1.69 0.70 - 3.10 10*3/mm3 04/09/2025 4:50 AM EDT [facility] Monocytes, Absolute 0.94(H) 0.10 - 0.90 10*3/mm3 04/09/2025 4:50 AM EDT [facility] Eosinophils, Absolute 0.07 0.00 - 0.40 10*3/mm3 04/09/2025 4:50 AM EDT [facility] Basophils, Absolute 0.04 0.00 - 0.20 10*3/mm3 04/09/2025 4:50 AM EDT [facility] Immature Grans, Absolute 0.03 0.00 - 0.05 10*3/mm3 04/09/2025 4:50 AM EDT [facility] nRBC 0.0 0.0 - 0.2 /100 WBC 04/09/2025 4:50 AM EDT [facility] Blood Venipuncture / Unknown 04/09/2025 4:18 AM EDT 04/09/2025 4:31 AM EDT Sushil Dean Jr., MD LAB BLOOD ORDERABLES Fi nal Result [facility]
[address] [place] [address], * Heparin Anti-Xa (04/09/2025 4:18 AM EDT) Heparin Anti-Xa (UFH) 0.41 0.30 - 0.70 IU/ml 04/09/2025 4:53 AM EDT [facility] Blood Venipuncture / Unknown 04/09/2025 4:18 AM EDT 04/09/2025 4:31 AM EDT Una Wheeleroy PharmD LAB BLOOD ORDERABLES Final R esult [facility]
[address] [place] [address], * (ABNORMAL) Basic Metabolic Panel (04/09/2025 4:18 AM EDT) Pathologist [facility] Glucose 147(H) 65 - 99 mg/dL 04/09/2025 5:33 AM EDT [facility] BUN 23.0(H) 6.0 - 20.0 mg/dL 04/09/2025 5:33 AM EDT [facility] Creatinine 1.15 0.76 - 1.27 mg/dL 04/09/2025 5:33 AM EDT [facility] Sodium 135(L) 136 - 145 mmol/L 04/09/2025 5:33 AM EDT [facility] Potassium 4.2 3.5 - 5.2 mmol/L 04/09/2025 5:33 AM EDT [facility] Chloride 100 98 - 107 mmol/L 04/09/2025 5:33 AM EDT [facility] CO2 26.0 22.0 - 29.0 mmol/L 04/09/2025 5:33 AM EDT [facility] Calcium 8.2(L) 8.6 - 10.5 mg/dL 04/09/2025 5:33 AM EDT [facility] BUN/Creatinine Ratio 20.0 7.0 - 25.0 04/09/2025 5:33 AM EDT [facility] Anion Gap 9.0 5.0 - 15.0 mmol/L 04/09/2025 5:33 AM EDT [facility] eGFR 80.5 >60.0 mL/min/1.7 3 04/09/2025 5:33 AM EDT [facility] Blood Venipuncture / Unknown 04/09/2025 4:18 AM EDT 04/09/2025 4:29 AM EDT Narrative [facility] - 04/09/2025 5:33 AM [...] ORDERABLES Fi nal Result Performing Organization Address [facility] Co de Phone Number [facility]
[address] [place] [address], * Wound Culture - Swab, Leg, Right (04/08/2025 3:40 PM EDT) Wound Culture No growth at 3 days ALIZA 04/11/2025 10:40 AM EDT [facility] Gram Stain Few (2+) WBCs seen 04/11/2025 10:40 AM EDT [facility] Gram Stain No organisms seen 04/11/2025 10:40 AM EDT [facility] Swab Structure of right lower limb / Unknown 04/08/2025 3:40 PM EDT 04/08/2025 8:05 PM EDT Sushil Dean Jr., MD MICROBIOLOGY - GENERAL ORDERABLES Final Result Performing Organization Address City/[facility]/ZIP Co de Phone Number [facility]
[address] [phone], [facility]
[address] [place] [address], * Anaerobic Culture - Swab, Leg, Right (04/08/2025 3:40 PM EDT) Pathologist [facility] Anaerobic Culture No anaerobes isolated at 5 days ALIZA 04/13/2025 7:24 AM EDT [facility] Swab Structure of right lower limb / Unknown 04/08/2025 3:40 PM EDT 04/08/2025 8:05 PM EDT Sushil Dean Jr., MD MICROBIOLOGY - GENERAL ORDERABLES Final Result Performing Organization Address City/[facility] Co de Phone Number [facility]
[address] [place] [address], [place] [phone] * Scan Slide (04/08/2025 8:41 AM EDT) Pathologist [facility] RBC Morphology Normal Normal 04/08/2025 11:02 AM EDT [facility] WBC Morphology Normal Normal 04/08/2025 11:02 AM EDT [facility] Platelet Estimate Adequate Normal 04/08/2025 11:02 AM EDT [facility] Clumped Platelets Present None Seen 04/08/2025 11:02 AM EDT [facility] Blood Venipuncture / Unknown 04/08/2025 8:41 AM EDT 04/08/2025 9:10 AM EDT Una LundbergD LAB BLOOD ORDERABLES Final R esult Performing Organization Address City/[facility]/ZIP Co de Phone Number [facility]
[address] [place] [address], [place] [phone] * (ABNORMAL) CBC Auto Differential (04/08/2025 8:41 AM EDT) Pathologist [facility] WBC 10.07 3.40 - 10.80 10*3/mm3 04/08/2025 11:02 AM EDT [facility] RBC 5.01 4.14 - 5.80 10*6/mm3 04/08/2025 11:02 AM EDT [facility] Hemoglobin 14.0 13.0 - 17.7 g/dL 04/08/2025 11:02 AM [facility] Hematocrit 42.7 37.5 - 51.0 % 04/08/2025 11:02 AM [facility] MCV 85.2 79.0 - 97.0 fL 04/08/2025 11:02 AM [facility] MCH 27.9 26.6 - 33.0 pg 04/08/2025 11:02 AM [facility] MCHC 32.8 31.5 - 35.7 g/dL 04/08/2025 11:02 AM [facility] RDW 12.6 12.3 - 15.4 % 04/08/2025 11:02 AM [facility] RDW-SD 38.9 37.0 - 54.0 fl 04/08/2025 11:02 AM [facility] MPV 11.0 6.0 - 12.0 fL 04/08/2025 11:02 AM [facility] Platelets 118(L) 140 - 450 10*3/mm3 04/08/2025 11:02 AM [facility] Neutrophil % 85.1(H) 42.7 - 76.0 % 04/08/2025 11:02 AM [facility] Lymphocyte % 9.3(L) 19.6 - 45.3 % 04/08/2025 11:02 AM [facility] Monocyte % 4.6(L) 5.0 - 12.0 % 04/08/2025 11:02 AM [facility] Eosinophil % 0.3 0.3 - 6.2 % 04/08/2025 11:02 AM [facility] Basophil % 0.2 0.0 - 1.5 % 04/08/2025 11:02 AM [facility] Immature Grans % 0.5 0.0 - 0.5 % 04/08/2025 11:02 AM [facility] Neutrophils, Absolute 8.57(H) 1.70 - 7.00 10*3/mm3 04/08/2025 11:02 AM EDT [facility] Lymphocytes, Absolute 0.94 0.70 - 3.10 10*3/mm3 04/08/2025 11:02 AM EDT [facility] Monocytes, Absolute 0.46 0.10 - 0.90 10*3/mm3 04/08/2025 11:02 AM EDT [facility] Eosinophils, Absolute 0.03 0.00 - 0.40 10*3/mm3 04/08/2025 11:02 AM EDT [facility] Basophils, Absolute 0.02 0.00 - 0.20 10*3/mm3 04/08/2025 11:02 AM EDT [facility] Immature Grans, Absolute 0.05 0.00 - 0.05 10*3/mm3 04/08/2025 11:02 AM EDT [facility] nRBC 0.0 0.0 - 0.2 /100 WBC 04/08/2025 11:02 AM EDT [facility] Blood Venipuncture / Unknown 04/08/2025 8:41 AM EDT 04/08/2025 9:10 AM EDT Una Perla PharmD LAB BLOOD ORDERABLES Final R esult [facility]
[address] [place] [address], * (ABNORMAL) Basic Metabolic Panel (04/08/2025 8:41 AM EDT) Glucose 125(H) 65 - 99 mg/dL 04/08/2025 9:51 AM EDT [facility] BUN 13.2 6.0 - 20.0 mg/dL 04/08/2025 9:51 AM EDT [facility] Creatinine 0.69(L) 0.76 - 1.27 mg/dL 04/08/2025 9:51 AM EDT [facility] Sodium 136 136 - 145 mmol/L 04/08/2025 9:51 AM EDT [facility] Potassium 4.6 3.5 - 5.2 mmol/L 04/08/2025 9:51 AM EDT [facility] Chloride 102 98 - 107 mmol/L 04/08/2025 9:51 AM EDT [facility] CO2 23.5 22.0 - 29.0 mmol/L 04/08/2025 9:51 AM EDT [facility] Calcium 8.4(L) 8.6 - 10.5 mg/dL 04/08/2025 9:51 AM EDT [facility] BUN/Creatinine Ratio 19.1 7.0 - 25.0 04/08/2025 9:51 AM EDT [facility] Anion Gap 10.5 5.0 - 15.0 mmol/L 04/08/2025 9:51 AM EDT [facility] eGFR 117.0 >60.0 mL/min/1.7 3 04/08/2025 9:51 AM EDT [facility] Blood Venipuncture / Unknown 04/08/2025 8:41 AM EDT 04/08/2025 9:09 AM EDT [facility] - 04/08/2025 9:51 AM EDT [...] Jr., MD LAB BLOOD ORDERABLES nal Result [facility]
[address] [place] [address], * Heparin Anti-Xa (04/08/2025 8:41 AM EDT) Heparin Anti-Xa (UFH) 0.33 0.30 - 0.70 IU/ml 04/08/2025 9:40 AM EDT [facility] Blood Venipuncture / Unknown 04/08/2025 8:41 AM EDT 04/08/2025 9:10 AM EDT Sushil Dean Jr., MD LAB BLOOD ORDERABLES Fi nal Result [facility]
[address] [place] [address], * FL C Arm During Surgery (04/07/2025 9:32 PM EDT) Narrative SYSTEMGENERATED, DOCUMENTATION - 04/07/2025 9:38 PM EDT This procedure was auto-finalized with no dictation required. Sushil Dean Jr., MD IMG FLUOROSCOPY ORDERAB LES Final Result * Wound Culture - Swab, Leg, Right (04/07/2025 9:14 PM EDT) Wound Culture No growth at 3 days ALIZA 04/11/2025 10:40 AM EDT [facility] Gram Stain Occasional WBCs seen 04/11/2025 10:40 AM EDT [facility] Gram Stain No organisms seen 04/11/2025 10:40 AM EDT [facility] Swab Structure of right lower limb / Unknown Collection / Unknown 04/07/2025 9:14 PM EDT 04/08/2025 4:36 AM EDT Sushil Dean Jr., MD MICROBIOLOGY - GENERAL ORDERABLES Final Result [facility]
[address] [place] [address], [facility]
[address] [place] [address], * Anaerobic Culture - Swab, Leg, Right (04/07/2025 9:14 PM EDT) Anaerobic Culture No anaerobes isolated at 5 days ALIZA 04/13/2025 7:21 AM EDT [facility] Swab Structure of right lower limb / Unknown Collection / Unknown 04/07/2025 9:14 PM EDT 04/08/2025 4:36 AM EDT Sushil Dean Jr., MD MICROBIOLOGY - GENERAL ORDERABLES Final Result Performing Organization Address City/[facility]/ZIP Co de Phone Number [facility]
[address] [place] [address], * Anaerobic Culture - Tissue, Leg (04/07/2025 9:13 PM EDT) Anaerobic Culture No anaerobes isolated at 5 days ALIZA 04/13/2025 7:21 AM EDT [facility] Tissue Lower limb structure / Unknown Collection / Unknown 04/07/2025 9:13 PM EDT 04/08/2025 4:54 AM EDT Jason Álvarez DO MICROBIOLOGY - GENERAL ORDERABLE S Final Result [facility]
[address] [place] [address], * Tissue / Bone Culture - Tissue, Leg, Right (04/07/2025 9:13 PM EDT) Tissue Culture No growth at 3 days ALIZA 04/11/2025 10:36 AM EDT [facility] Gram Stain Rare (1+) WBCs seen 04/11/2025 10:36 AM EDT [facility] Gram Stain No organisms seen 04/11/2025 10:36 AM EDT [facility] Tissue Structure of right lower limb / Unknown 04/07/2025 9:13 PM EDT 04/08/2025 4:54 AM EDT Sushil Dean Jr., MD MICROBIOLOGY - GENERAL ORDERABLES Final Result Performing Organization Address City/[facility]/ZIP Co de Phone Number [facility]
[address] [place] [address], [place] [phone] [facility]
[address] [place] [address], [place] [phone] * (ABNORMAL) Wound Culture - Swab, Leg, Right (04/07/2025 9:07 PM EDT) Wound Culture Light growth (2+) Staphylococcus aureus, MRSA(A) ALIZA 04/10/2025 10:38 AM EDT [facility] Comment: Methicillin resistant Staphylococcus aureus, Patient may be an isolation risk. Gram Stain Few (2+) WBCs seen 04/10/2025 10:38 AM EDT [facility] Gram Stain No organisms seen 10:38 AM EDT [facility] Swab Structure of [...] MD MICROBIOLOGY - GENERAL ORDERABLES Final Result [facility]
[address] [place] [address], [facility]
[address] [place] [address], * Anaerobic Culture - Swab, Leg, Right (04/07/2025 9:07 PM EDT) Pathologist [facility] Anaerobic Culture No anaerobes isolated at 5 days ALIZA 04/13/2025 7:21 AM EDT [facility] Swab Structure of right lower limb / Unknown Collection / Unknown 04/07/2025 9:07 PM EDT 04/08/2025 4:36 AM EDT Sushil Dean Jr., MD MICROBIOLOGY - GENERAL ORDERABLES Final Result Performing Organization Address [facility] Co de Phone Number [facility]
[address] [place] [address], * Heparin Anti-Xa (04/07/2025 9:10 AM EDT) [facility] Heparin Anti-Xa (UFH) 0.30 0.30 - 0.70 IU/ml 04/07/2025 10:12 AM EDT [facility] Blood Venipuncture / Unknown 04/07/2025 9:10 AM EDT 04/07/2025 9:38 AM EDT Una LundbergD LAB BLOOD ORDERABLES Final R esult Performing Organization Address City/[facility]/ZIP Co de Phone Number [facility]
[address] [place] [address], * (ABNORMAL) CBC Auto Differential (04/07/2025 9:10 AM EDT) Pathologist [facility] WBC 8.63 3.40 - 10.80 10*3/mm3 04/07/2025 9:50 AM EDT [facility] RBC 5.23 4.14 - 5.80 10*6/mm3 04/07[facility] Hemoglobin 14.7 13.0 - 17.7 g/dL 04/07/2025 9:50 [facility] Hematocrit 44.8 37.5 - 51.0 % 04/07/2025 9:50 [facility] MCV 85.7 79.0 - 97.0 fL 04/07/2025 9:50 AM EDT [facility] MCH 28.1 26.6 - 33.0 pg 04/07/2025 9:50 [facility] MCHC 32.8 31.5 - 35.7 g/dL 04/07/2025 9:50 [facility] RDW 12.8 12.3 - 15.4 % 04/07/2025 9:50 AM [facility] RDW-SD 39.9 37.0 - 54.0 fl 04/07/2025 9:50 AM [facility] MPV 10.8 6.0 - 12.0 fL 04/07/2025 9:50 AM [facility] Platelets 149 140 - 450 10*3/mm3 04/07/2025 9:50 [facility] Neutrophil % 66.7 42.7 - 76.0 % 04/07/2025 9:50 AM [facility] Lymphocyte % 20.5 19.6 - 45.3 % 04/07/2025 9:50 AM EDT [facility] Monocyte % 9.8 5.0 - 12.0 % 04/07/2025 9:50 [facility] Eosinophil % 2.1 0.3 - 6.2 % 04/07/2025 9:50 [facility] Basophil % 0.3 0.0 - 1.5 % 04/07/2025 9:50 [facility] Immature Grans % 0.6(H) 0.0 - 0.5 % 04/07/2025 9:50 AM EDT [facility] Neutrophils, Absolute 5.75 1.70 - 7.00 10*3/mm3 04/07/2025 9:50 AM EDT [facility] Lymphocytes, Absolute 1.77 0.70 - 3.10 10*3/mm3 04/07/2025 9:50 AM EDT [facility] Monocytes, Absolute 0.85 0.10 - 0.90 10*3/mm3 04/07/2025 9:50 AM EDT [facility] Eosinophils, Absolute 0.18 0.00 - 0.40 10*3/mm3 04/07/2025 9:50 AM EDT [facility] Basophils, Absolute 0.03 0.00 - 0.20 10*3/mm3 04/07/2025 9:50 AM EDT [facility] Immature Grans, Absolute 0.05 0.00 - 0.05 10*3/mm3 04/07/2025 9:50 AM EDT [facility] nRBC 0.0 0.0 - 0.2 /100 WBC 04/07/2025 9:50 AM EDT [facility] Blood Venipuncture / Unknown 04/07/2025 9:10 AM EDT 04/07/2025 9:38 AM EDT us Jason Álvarez DO LAB BLOOD ORDERABLES Final Resul t [facility]
[address] [place] [address], * (ABNORMAL) Basic Metabolic Panel (04/07/2025 9:10 AM EDT) Glucose 112(H) 65 - 99 mg/dL 04/07/2025 10:19 AM EDT [facility] BUN 13.1 6.0 - 20.0 mg/dL 04/07/2025 10:19 AM EDT [facility] Creatinine 0.77 0.76 - 1.27 mg/dL 04/07/2025 10:19 AM EDT [facility] Sodium 139 136 - 145 mmol/L 04/07/2025 10:19 AM EDT [facility] Potassium 4.2 3.5 - 5.2 mmol/L 04/07/2025 10:19 AM EDT [facility] Comment:Specimen hemolyzed. Result may be falsely elevated. Chloride 105 98 - 107 mmol/L 04/07/2025 10:19 AM EDT [facility] CO2 24.8 22.0 - 29.0 mmol/L 04/07/2025 10:19 AM EDT [facility] Calcium 8.6 8.6 - 10.5 mg/dL 04/07/2025 10:19 AM T [facility] BUN/Creatinine Ratio 17.0 7.0 - 25.0 04/07/2025 10:19 AM EDT [facility] Anion Gap 9.2 5.0 - 15.0 mmol/L 04/07/2025 10:19 AM T [facility] eGFR 113.2 >60.0 mL/min/1.7 3 04/07/2025 10:19 AM T [facility] Blood Venipuncture / Unknown 04/07/2025 9:10 AM EDT 04/07/2025 9:38 AM EDT Narrative [facility] - 04/07/2025 10:19 AM [...] DO LAB BLOOD ORDERABLES Final Resul t [facility]
[address] [place] [address], * MRI Tibia Fibula Right With & [...] [place] 04/07/2025 9:58 AM EDT Workstation ID: [id number] Narrative 04/07/2025 9:58 AM EDT MRI TIBIA [...] [place] 04/07/2025 9:58 AM EDT Workstation ID: [id number] us Sushil Dean Jr., MD [facility] MRI ORDERABLES Mary Beth l Result * Heparin Anti-Xa (04/07/2025 1:42 AM EDT) Heparin Anti-Xa (UFH) 0.38 0.30 - 0.70 IU/ml 04/07/2025 2:14 AM EDT [facility] Blood Venipuncture / Unknown 04/07/2025 1:42 AM EDT 04/07/2025 1:54 AM EDT Chelsie Navarretesapna [facility] LAB BLOOD ORDERABLES Final R esult Performing Organization Address City/[facility]/ZIP Co de Phone Number [facility]
[address] [place] [address], * Heparin Anti-Xa (04/06/2025 7:16 PM EDT) Pathologist [facility] Heparin Anti-Xa (UFH) 0.33 0.30 - 0.70 IU/ml 04/06/2025 7:50 PM EDT [facility] Blood Venipuncture / Unknown 04/06/2025 7:16 PM EDT 04/06/2025 7:35 PM EDT Cherri Beatty [facility] LAB BLOOD ORDERABLES Final Res ult Performing Organization Address City/[facility] Co de Phone Number [facility]
[address] [place] [address], * Potassium (04/06/2025 7:16 PM EDT) Pathologist [facility] Potassium 4.0 3.5 - 5.2 mmol/L 04/06/2025 7:53 PM EDT [facility] Blood Venipuncture / Unknown 04/06/2025 7:16 PM EDT 04/06/2025 7:35 PM EDT Jason Álvarez DO LAB BLOOD ORDERABLES Final Resul t Performing Organization Address City/[facility]/ZIP Co de Phone Number [facility]
[address] [place] [address], * (ABNORMAL) Heparin Anti-Xa (04/06/2025 12:36 PM EDT) Heparin Anti-Xa (UFH) 0.24(L) 0.30 - 0.70 IU/ml 04/06/2025 1:23 PM EDT [facility] Blood Venipuncture / Unknown 04/06/2025 12:36 PM EDT 04/06/2025 1:07 PM EDT Una LundbergD LAB BLOOD ORDERABLES Final R esult [facility]
[address] [place] [address], * (ABNORMAL) Heparin Anti-Xa (04/06/2025 3:42 AM EDT) [facility] Heparin Anti-Xa (UFH) 0.25(L) 0.30 - 0.70 IU/ml 04/06/2025 5:30 AM EDT [facility] Blood Venipuncture / Unknown 04/06/2025 3:42 AM EDT 04/06/2025 4:59 AM EDT Chelsie Turpin [facility] LAB BLOOD ORDERABLES Final R esult [facility]
[address] [place] [address], * (ABNORMAL) Basic Metabolic Panel (04/06/2025 3:42 AM EDT) [facility] Glucose 94 65 - 99 mg/dL 04/06/2025 5:59 AM EDT [facility] BUN 12.8 6.0 - 20.0 mg/dL 04/06/2025 5:59 AM EDT [facility] Creatinine 0.80 0.76 - 1.27 mg/dL 04/06/2025 5:59 AM EDT [facility] Sodium 138 136 - 145 mmol/L 04/06/2025 5:59 AM EDT [facility] Potassium 3.6 3.5 - 5.2 mmol/L 04/06/2025 5:59 AM EDT [facility] Chloride 103 98 - 107 mmol/L 04/06/2025 5:59 AM EDT [facility] CO2 24.2 22.0 - 29.0 mmol/L 04/06/2025 5:59 AM EDT [facility] Calcium 8.0(L) 8.6 - 10.5 mg/dL 04/06/2025 5:59 AM EDT [facility] BUN/Creatinine Ratio 16.0 7.0 - 25.0 04/06/2025 5:59 AM EDT [facility] Anion Gap 10.8 5.0 - 15.0 mmol/L 04/06/2025 5:59 AM EDT [facility] eGFR 111.9 >60.0 mL/min/1.7 3 04/06/2025 5:59 AM EDT [facility] Blood Venipuncture / Unknown 04/06/2025 3:42 AM EDT 04/06/2025 5:20 AM EDT Narrative [facility] - 04/06/2025 5:59 AM [...] DO LAB BLOOD ORDERABLES Final Resul t [facility]
[address] [place] [address], * (ABNORMAL) CBC Auto Differential (04/06/2025 3:41 AM EDT) WBC 10.86(H) 3.40 - 10.80 10*3/mm3 04/06/2025 5:04 AM EDT [facility] RBC 5.08 4.14 - 5.80 10*6/mm3 04/06/2025 5:04 AM EDT [facility] Hemoglobin 13.9 13.0 - 17.7 g/dL 04/06/2025 5:04 AM EDT [facility] Hematocrit 43.7 37.5 - 51.0 % 04/06/2025 5:04 AM EDT [facility] MCV 86.0 79.0 - 97.0 fL 04/06/2025 5:04 AM EDT [facility] MCH 27.4 26.6 - 33.0 pg 04/06/2025 5:04 AM EDT [facility] MCHC 31.8 31.5 - 35.7 g/dL 04/06/2025 5:04 AM EDT [facility] RDW 12.8 12.3 - 15.4 % 04/06/2025 5:04 AM EDT [facility] RDW-SD 40.0 37.0 - 54.0 fl 04/06/2025 5:04 AM EDT [facility] MPV 11.7 6.0 - 12.0 fL 04/06/2025 5:04 AM EDT [facility] Platelets 115(L) 140 - 450 10*3/mm3 04/06/2025 5:04 AM EDT [facility] Neutrophil % 65.3 42.7 - 76.0 % 04/06/2025 5:04 AM EDT [facility] Lymphocyte % 20.5 19.6 - 45.3 % 04/06/2025 5:04 AM EDT [facility] Monocyte % 11.8 5.0 - 12.0 % 04/06/2025 5:04 AM EDT [facility] Eosinophil % 1.8 0.3 - 6.2 % 04/06/2025 5:04 AM EDT [facility] Basophil % 0.3 0.0 - 1.5 % 04/06/2025 5:04 AM EDT [facility] Immature Grans % 0.3 0.0 - 0.5 % 04/06/2025 5:04 AM EDT [facility] Neutrophils, Absolute 7.09(H) 1.70 - 7.00 10*3/mm3 04/06/2025 5:04 AM EDT [facility] Lymphocytes, Absolute 2.23 0.70 - 3.10 10*3/mm3 04/06/2025 5:04 AM EDT [facility] Monocytes, Absolute 1.28(H) 0.10 - 0.90 10*3/mm3 04/06/2025 5:04 AM EDT [facility] Eosinophils, Absolute 0.20 0.00 - 0.40 10*3/mm3 04/06/2025 5:04 AM EDT [facility] Basophils, Absolute 0.03 0.00 - 0.20 10*3/mm3 04/06/2025 5:04 AM EDT [facility] Immature Grans, Absolute 0.03 0.00 - 0.05 10*3/mm3 04/06/2025 5:04 AM EDT [facility] nRBC 0.0 0.0 - 0.2 /100 WBC 04/06/2025 5:04 AM EDT [facility] Blood Venipuncture / Unknown 04/06/2025 3:41 AM EDT 04/06/2025 4:58 AM EDT us Jason Álvarez DO LAB BLOOD ORDERABLES Final Resul t [facility]
[address] [place] [address], * Heparin Anti-Xa (04/05/2025 8:43 PM EDT) Heparin Anti-Xa (UFH) 0.38 0.30 - 0.70 IU/ml 04/05/2025 9:09 PM EDT [facility] Blood Venipuncture / Unknown 04/05/2025 8:43 PM EDT 04/05/2025 8:55 PM EDT Cherri Beatty [facility] LAB BLOOD ORDERABLES Final Res ult Performing Organization Address [facility] Co de Phone Number [facility]
[address] [place] [address], * CK (04/05/2025 12:15 PM EDT) Creatine Kinase 140 20 - 200 U/L 04/05/2025 1:31 PM EDT [facility] Blood Venipuncture / Unknown 04/05/2025 12:15 PM EDT 04/05/2025 1:03 PM EDT Carlton Mead MD LAB BLOOD ORDERABLES Final R esult Performing Organization Address [facility] Co de Phone Number [facility]
[address] [place] [address], [place] [phone] * (ABNORMAL) Heparin Anti-Xa (04/05/2025 12:15 PM EDT) Heparin Anti-Xa (UFH) 0.17(L) 0.30 - 0.70 IU/ml 04/05/2025 1:21 PM EDT [facility] Blood Venipuncture / Unknown 04/05/2025 12:15 PM EDT 04/05/2025 1:04 PM EDT Una LundbergD LAB BLOOD ORDERABLES Final R esult Performing Organization Address City/[facility]/ZIP Co de Phone Number [facility]
[address] [place] [address], * (ABNORMAL) aPTT (04/05/2025 3:54 AM EDT) [facility] PTT 35.3(L) 60.0 - 90.0 seconds 04/05/2025 4:31 AM EDT [facility] Blood Venipuncture / Unknown 04/05/2025 3:54 AM EDT 04/05/2025 4:15 AM EDT Narrative [facility] - 04/05/2025 4:31 AM EDT PTT = The equivalent PTT values for the therapeutic range of heparin levels at 0.3 to 0.5 U/ml are 60 to 70 seconds. Una Perla [employer] LAB BLOOD ORDERABLES Final R esult Performing Organization Address [facility] Co de Phone Number [facility]
[address] [place] [address], * Heparin Anti-Xa (04/05/2025 3:54 AM EDT) [facility] Heparin Anti-Xa (UFH) 0.30 0.30 - 0.70 IU/ml 04/05/2025 4:32 AM EDT [facility] Blood Venipuncture / Unknown 04/05/2025 3:54 AM EDT 04/05/2025 4:15 AM EDT [employer] LAB BLOOD ORDERABLES Final R esult Performing Organization Address City/[facility] Co de Phone Number [facility]
[address] [place] [address], * (ABNORMAL) CBC Auto Differential (04/05/2025 3:54 AM EDT) [facility] WBC 11.18(H) 3.40 - 10.80 10*3/mm3 04/05/2025 4:20 AM EDT [facility] RBC 5.00 4.14 - 5.80 10*6/mm3 04/05/2025 4:20 AM EDT [facility] Hemoglobin 13.9 13.0 - 17.7 g/dL 04/05/2025 4:20 AM EDT [facility] Hematocrit 42.4 37.5 - 51.0 % 04/05/2025 4:20 AM EDT [facility] MCV 84.8 79.0 - 97.0 fL 04/05/2025 4:20 AM EDT [facility] MCH 27.8 26.6 - 33.0 pg 04/[facility] MCHC 32.8 31.5 - 35.7 g/dL 04/05/2025 4:20 AM [facility] RDW 12.9 12.3 - 15.4 % 04/05/2025 4:20 AM [facility] RDW-SD 39.7 37.0 - 54.0 fl 04/05/2025 4:20 AM [facility] MPV 10.2 6.0 - 12.0 fL 04/05/2025 4:20 AM [facility] Platelets 160 140 - 450 10*3/mm3 04/05/2025 4:20 AM [facility] Neutrophil % 73.5 42.7 - 76.0 % 04/05/2025 4:20 [facility] Lymphocyte % 14.0(L) 19.6 - 45.3 % 04/05/2025 4:20 AM EDT [facility] Monocyte % 11.0 5.0 - 12.0 % 04/05/2025 4:20 [facility] Eosinophil % 0.8 0.3 - 6.2 % 04/05/2025 4:20 [facility] Basophil % 0.3 0.0 - 1.5 % 04/05/2025 4:20 AM EDT [facility] Immature Grans % 0.4 0.0 - 0.5 % 04/05/2025 4:20 AM EDT [facility] Neutrophils, Absolute 8.23(H) 1.70 - 7.00 10*3/mm3 04/05/2025 4:20 AM EDT [facility] Lymphocytes, Absolute 1.56 0.70 - 3.10 10*3/mm3 04/05/2025 4:20 AM EDT [facility] Monocytes, Absolute 1.23(H) 0.10 - 0.90 10*3/mm3 04/05/2025 4:20 AM EDT [facility] Eosinophils, Absolute 0.09 0.00 - 0.40 10*3/mm3 04/05/2025 4:20 AM EDT [facility] Basophils, Absolute 0.03 0.00 - 0.20 10*3/mm3 04/05/2025 4:20 AM EDT [facility] Immature Grans, Absolute 0.04 0.00 - 0.05 10*3/mm3 04/05/2025 4:20 AM EDT [facility] nRBC 0.0 0.0 - 0.2 /100 WBC 04/05/2025 4:20 AM EDT [facility] Blood Venipuncture / Unknown 04/05/2025 3:54 AM EDT 04/05/2025 4:16 AM EDT Una Perla PharmD LAB BLOOD ORDERABLES Final R esult [facility]
[address] [place] [address], * (ABNORMAL) Basic Metabolic Panel (04/05/2025 3:54 AM EDT) [facility] Signature Glucose 152(H) 65 - 99 mg/dL 04/05/2025 4:40 AM EDT [facility] BUN 17.3 6.0 - 20.0 mg/dL 04/05/2025 4:40 AM T [facility] Creatinine 0.92 0.76 - 1.27 mg/dL 04/05/2025 4:40 AM EDT [facility] Sodium 136 136 - 145 mmol/L 04/05/2025 4:40 AM EDT [facility] Potassium 3.9 3.5 - 5.2 mmol/L 04/05/2025 4:40 AM EDT [facility] Chloride 103 98 - 107 mmol/L 04/05/2025 4:40 AM EDT [facility] CO2 24.0 22.0 - 29.0 mmol/L 04/05/2025 4:40 AM T [facility] Calcium 7.8(L) 8.6 - 10.5 mg/dL 04/05/2025 4:40 AM [facility] BUN/Creatinine Ratio 18.8 7.0 - 25.0 04/05/2025 4:40 AM T [facility] Anion Gap 9.0 5.0 - 15.0 mmol/L 04/05/2025 4:40 AM [facility] eGFR 105.2 >60.0 mL/min/1.7 3 04/05/2025 4:40 AM [facility] Blood Venipuncture / Unknown 04/05/2025 3:54 AM EDT 04/05/2025 4:15 AM EDT [facility] - 04/05/2025 4:40 AM EDT [...] ORDERABLES Final Re sult Performing Organization Address [facility] Co de Phone Number [facility]
[address] [place] [address], * (ABNORMAL) aPTT (04/05/2025 12:18 AM EDT) PTT 33.6(L) 60.0 - 90.0 seconds 04/05/2025 12:53 AM EDT [facility] Blood Venipuncture / Unknown 04/05/2025 12:18 AM EDT 04/05/2025 12:37 AM EDT Narrative [facility] - 04/05/2025 12:53 AM EDT PTT = The equivalent PTT values for the therapeutic range of heparin levels at 0.3 to 0.5 U/ml are 60 to 70 seconds. Una Perla PharmD LAB BLOOD ORDERABLES Final R esult Performing Organization Address [facility] Co de Phone Number [facility]
[address] [place] [address], [place] [phone] * (ABNORMAL) Protime-INR (04/05/2025 12:18 AM EDT) Protime 15.9(H) 12.2 - 15.3 Seconds 04/05/2025 12:53 AM EDT [facility] INR 1.19(H) 0.89 - 1.12 04/05/2025 12:53 AM EDT [facility] Blood Venipuncture / Unknown 04/05/2025 12:18 AM EDT 04/05/2025 12:37 AM EDT Una Perla PharmD LAB BLOOD ORDERABLES Final R esult Performing Organization Address City/[facility] Co de Phone Number [facility]
[address] [place] [address], [place] [phone] * Heparin Anti-Xa (04/05/2025 12:18 AM EDT) Heparin Anti-Xa (U[facility]) 0.39 0.30 - 0.70 IU/ml 04/05/2025 12:54 AM EDT [facility] Blood Venipuncture / Unknown 04/05/2025 12:18 AM EDT 04/05/2025 12:37 AM EDT Una Perla PharmD LAB BLOOD ORDERABLES Final R esult [facility]
[address] [place] [address], * MRI Tibia Fibula Right With & [...] MD 04/04/2025 11:00 PM EDT Workstation ID: [id number] Narrative 04/04/2025 11:00 PM EDT MRI TIBIA [...] MD 04/04/2025 11:00 PM EDT Workstation ID: [id number] us Leonora Shepherd MD IMG MRI ORDERABLES Final Resu lt * POC Creatinine (04/04/2025 2:49 PM EDT) [facility] Creatinine 1.10 0.60 - 1.30 mg/dL 04/07/2025 7:14 PM EDT [facility] Comment:Serial Number: [id number] 7Operator: [id number] Venous Blood 04/04/2025 2:49 PM EDT 04/07/2025 7:14 PM EDT Jason Álvarez DO POINT OF CARE TEST ORDERABLES Fi nal Result [facility]
[address] [place] [address], * (ABNORMAL) CBC Auto Differential (04/04/2025 2:47 PM EDT) [facility] WBC 12.72(H) 3.40 - 10.80 10*3/mm3 04/04/2025 2:56 PM EDT [facility] RBC 5.64 4.14 - 5.80 10*6/mm3 04/04/2025 2:56 PM EDT [facility] Hemoglobin 15.3 13.0 - 17.7 g/dL 04/04/2025 2:56 PM EDT [facility] Hematocrit 47.9 37.5 - 51.0 % 04/04/2025 2:56 PM EDT [facility] MCV 84.9 79.0 - 97.0 fL 04/04/2025 2:56 PM EDT [facility] MCH 27.1 26.6 - 33.0 pg 04/04/2025 2:56 PM EDT [facility] MCHC 31.9 31.5 - 35.7 g/dL 04/04/2025 2:56 PM EDT [facility] RDW 13.1 12.3 - 15.4 % [facility] RDW-SD 40.3 37.0 - 54.0 fl 04/04/2025 2:56 PM EDT [facility] MPV 9.4 6.0 - 12.0 fL 04/04/2025 2:56 PM EDT [facility] [facility] Platelets 232 140 - 450 10*3/mm3 04/04/2025 2:56 PM EDT [facility] Neutrophil % 74.9 42.7 - 76.0 % 04/04/2025 2:56 PM EDT [facility] Lymphocyte % 13.1(L) 19.6 - 45.3 % [facility] Monocyte % 11.2 5.0 - 12.0 % 04/04/2025 2[facility] Eosinophil % 0.4 0.3 - 6.2 % 04/04/2025 2:56 PM EDT [facility] Basophil % 0.2 0.0 - 1.5 % 04/04[facility]2025 [facility] Immature Grans % 0.2 0.0 - 0.5 % 04/04/2025 2:[facility] Neutrophils, Absolute 9.52(H) 1.70 - 7.00 10*3/mm3 04/04/2025 2:56 PM [facility] Lymphocytes, Absolute 1.66 0.70 - 3.10 10*3/mm3 04/04/2025 2:56 PM EDT [facility] Monocytes, Absolute 1.43(H) 0.10 - 0.90 10*3/mm3 04/04/2025 2:56 PM EDT [facility] Eosinophils, Absolute 0.05 0.00 - 0.40 10*3/mm3 04/04/2025 2:[facility] Basophils, Absolute 0.03 0.00 - 0.20 10*3/mm3 04/04/2025 2:56 PM EDT [facility] Immature Grans, Absolute 0.03 0.00 - 0.05 10*3/mm3 04/04/2025 2:56 PM EDT [facility] nRBC 0.0 0.0 - 0.2 /100 WBC 04/04/2025 2:56 PM EDT [facility] Blood Venipuncture / Unknown 04/04/2025 2:47 PM EDT 04/04/2025 2:52 PM EDT Mario Ortiz [facility] LAB BLOOD ORDERABLES Fin al Result Performing Organization Address City/[facility]/ZIP Co de Phone Number [facility]
[address] [place] [address], * (ABNORMAL) C-reactive Protein (04/04/2025 2:47 PM EDT) C-Reactive Protein 8.57(H) 0.00 - 0.50 mg/dL 04/04/2025 3:26 PM EDT [facility] Blood Venipuncture / Unknown 04/04/2025 2:47 PM EDT 04/04/2025 2:52 PM EDT Mario Ortiz [facility] LAB BLOOD ORDERABLES Fin al Result Performing Organization Address [facility] de Phone Number [facility]
[address] [place] [address], * (ABNORMAL) Sedimentation Rate (04/04/2025 2:47 PM EDT) Sed Rate 51(H) 0 - 15 mm/hr 04/04/2025 3:06 PM EDT [facility] Blood Venipuncture / Unknown 04/04/2025 2:47 PM EDT 04/04/2025 2:52 PM EDT Mario Ortiz [facility] BLOOD ORDERABLES Fin al Result Performing Organization Address City/[facility]/ZIP Co de Phone Number [facility]
[address] [place] [address], * Comprehensive Metabolic Panel (04/04/2025 2:47 PM EDT) [facility] Glucose 90 65 - 99 mg/dL 04/04/2025 3:26 PM EDT [facility] BUN 18.3 6.0 - 20.0 mg/dL 04/04/2025 3:26 PM EDT [facility] Creatinine 0.94 0.76 - 1.27 mg/dL 04/04/2025 3:26 PM EDT [facility] Sodium 136 136 - 145 mmol/L 04/04/2025 3:26 PM EDT [facility] Potassium 3.8 3.5 - 5.2 mmol/L 04/04/2025 3:26 PM EDT [facility] Chloride 100 98 - 107 mmol/L 04/04/2025 3:26 PM EDT [facility] CO2 25.3 22.0 - 29.0 mmol/L 04/04/2025 3:26 PM EDT [facility] Calcium 8.6 8.6 - 10.5 mg/dL 04/04/2025 3:26 PM EDT [facility] Total Protein 7.3 6.0 - 8.5 g/dL 04/04/2025 3:26 PM EDT [facility] Albumin 4.1 3.5 - 5.2 g/dL 04/04/2025 3:26 PM EDT [facility] ALT (SGPT) 26 1 - 41 U/L 04/04/2025 3:26 PM EDT [facility] AST (SGOT) 25 1 - 40 U/L 04/04/2025 3:26 PM EDT [facility] Alkaline Phosphatase 106 39 - 117 U/L 04/04/2025 3:26 PM EDT [facility] Total Bilirubin 1.0 0.0 - 1.2 mg/dL 04/04/2025 3:26 PM EDT [facility] Globulin 3.2 gm/dL 04/04/2025 3:26 PM EDT [facility] Comment:Calculated Result A/G Ratio 1.3 g/dL 04/04/2025 3:26 PM EDT [facility] BUN/Creatinine Ratio 19.5 7.0 - 25.0 04/04/2025 3:26 PM EDT [facility] Anion Gap 10.7 5.0 - 15.0 mmol/L 04/04/2025 3:26 PM EDT [facility] eGFR 102.5 >60.0 mL/min/1.7 3 04/04/2025 3:26 PM EDT [facility] Blood Venipuncture / Unknown 04/04/2025 2:47 PM EDT 04/04/2025 2:52 PM EDT Narrative [facility] - 04/04/2025 3:26 PM [...] DO LAB BLOOD ORDERABLES Fin al Result [facility]
[address] [place] [address], documented in this encounter Visit Diagnoses Diagnosis [...] 04/05/2025 3:33 PM EDT 2,000 Units heparin 20483 units/250 mL (100 units/mL) in 0.45 % [...] BPA Driven Protocol Open Order & [facility] Electrolyte Replacement Protocol Algorithm to View [...] BPA Driven Protocol Open Order & [facility] Electrolyte Replacement Protocol Algorithm to View [...] 0831 (Given - Provider: Amber Salazar, CHIEF METER READER)194 (Given - Provider: Anahy Marcelino, CHIEF METER READER)2129 (Canceled Entry - Provider: Anahy Marcelino RRT [...] alert 09 (Given - Provider: Shirley Hart, UL) 09 (Given - Provider: Shirley Hart, LU) [...] Continuous Medication Order 04/09/2025 04/10/2025 04/11/2025 heparin 78114 units/250 mL (100 units/mL) in 0.45 % [...] BPA Driven Protocol Open Order & [facility] Electrolyte Replacement Protocol Algorithm to View [...] BPA Driven Protocol Open Order & [facility] Electrolyte Replacement Protocol Algorithm to View [...] documented as of this encounter Care Teams Shipboard Intelligence Analyst Relationship Specialty Start Date End Date Provider, [place] [id number] PCP - General 05/09/23 documented as of this encounter
--- OUTSIDE RECORDS SUMMARY | 2025-04-07 18:00 | XMS_ITS | Encounter Summary ---
[facility] Organization [facility] Address [address] [place] [address] Care Team Providers Care Healthcare Management Consultant Name Role Phone Provider, No Known Primary Care Provider Unavail able Reason for Visit * Reason Comments Leg Swelling * Auth/Cert Specialty Diagnoses / Procedures Referred By Contac t Referred To Contact Diagnoses Right BKA infection Referral ID Status Reason Start Date Expiration Date Visits Re quested Visits Authorized [id number] 1 1 Encounter Details Date Type Department Care Team (Late st Contact Info) Description 04/07/2025 6:00 PM EDT - 04/07/2025 6:52 PM EDT Surgery [facility] [address] [place] [address] Sushil Dean Jr., MD [address] [place] [address] [address] [id number] LEG DEBRIDEMENT, IRRIGATION Social History Tobacco Use Types Packs/Day Years Used Date Smoking Tobacco: Never Smokeless Tobacco: Never Tobacco Cessation:Counseling Given: Not Answered Alcohol Use Standard Drinks/Week Comments Not Currently 0 (1 standard drink = 0.6 oz pur e alcohol) [facility] Utilities Answer Date Recorded In the past 12 months has [employer] electric, gas, oil, or water company threatened [...] or training? Not on file Preferred Language Vietnamese 04/07/2025 Sex and Gender Information Value Date [...] 2:25 PM EDT Cherri Grimm RN * Henry Suicide Severity Rating Scale (Screener/Recent Self-Report) Question [...] from the original note were not included. [facility] Medicine Services DISCHARGE SUMMARY Patient [...] Date/Time Wound Culture - Swab, Leg, Right [[id number]] (Abnormal) (Susceptibility) Collected: 04/07/252106 Lab Status: Final [...] Units Date/Time FL C Arm During Surgery [[id number]] Resulted: 04/07/252137 Updated: 04/07/252137 Narrative: This procedure was auto-finalized with no dictation required. MRI Tibia Fibula Right With & Without Contrast [[id number]] Collected: 04/07/25 0938 Updated: 04/07/25 1001 Narrative: [...] Buenrostro 04/07/2025 9:58 AM EDT Workstation ID: [id number] MRI Tibia Fibula Right With & Without Contrast [[id number]] Collected: 04/04/252256 Updated: 04/04/252302 Narrative: MRI TIBIA [...] MD 04/04/2025 11:00 PM EDT Workstation ID: [id number] Pending Labs Order Current Status Fungus Culture [...] Male) Date of 1980 Social Security Number [id number] [place] [address] [place] [address] Rastafari Unknown Marital Status Unknown Admission Date 04/04/2025 [...] Plan Insurance Group Employer/Plan Group [place] [id number] Payor Plan Address Payor Plan Phone Number Payor Plan Fax Number Effective Dates [employer] [address] [address] 08/10/2023 - None Entered [facility] [address] Subscriber Name Subscriber Date Member ID WON DENNIS 1980 [id number] Emergency Contacts [employer] Cannoneer (Rel.) Home Phone Work Phone Mobile Phone Avril Dennis (Spouse) -- -- [phone] Robert Hackett (Relative) -- -- [phone] [facility] [address] [facility] [address] Patient: ROOM: [facility] Won Dennis [address] [facility] [place] [address] : 1980 SSN: [id number] Sex: M PCP: Provider, No Known Emergency Contact Information Name Relation Home Work Mobile Avril Dennis Spouse [phone] Other Contacts Name Relation Home Work Mobile Robert Hackett Relative [phone] INSURANCE PAYOR PLAN GROUP # SUBSCRIBER ID Primary: Secondary: MEDICARE [place] [id number] Admitting Diagnosis: 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] Order Date: Apr 09, 2025 Case Management Consultant In Ergonomics And Safety Consult (Order ID: [id number]) Diagnosis: Priority: Routine Expected Date: Expiration Date: [...] INFECTIOUS DISEASE Progress Note Won Dennis 1980 [id number] Date of Consult: 04/10/2025 Admission Date: 04/04/2025 [...] Jr., MD, 20 mg at 04/09/25906 heparin 55203 units/250 mL (100 units/mL) in 0.45 % [...] vancomycin 2750 mg/500 mL 0.9% NS IVPB ([facility]) Ordering Provider: Mario Crowley, DO 20 mg/kg [...] Units Date/Time FL C Arm During Surgery [[id number]] Resulted: 04/07/252137 Updated: 04/07/252137 Narrative: This procedure was auto-finalized with no dictation required. MRI Tibia Fibula Right With & Without Contrast [[id number]] Collected: 04/07/2538 Updated: 04/07/25 1001 Narrative: MRI [...] Buenrostro 04/07/2025 9:58 AM EDT Workstation ID: [id number] Impression: Recurrent Right BKA stump abscess/cellulitis- this [...] Creation Time: 04/10/251323 Signed Expand All [facility] Medicine Services PROGRESS NOTE Patient Name: [...] Date/Time Wound Culture - Swab, Leg, Right [[id number]] (Abnormal) (Susceptibility) Collected: 04/07/252106 Lab Status: Final [...] Row Name 04/06/25 1143 Sit-Stand Transfer Sit-Stand Levy (Transfers) modified independence - Comment, (Sit-Stand Transfer) Pt stood from recliner. Not holding onto walker, pt able to pull his pants up while balancing on his one leg. -LM Row Name 04/06/25 1143 Gait/Stairs (Locomotion) Levy Level (Gait) modified independence - Distance in [...] Motion bilateral lower extremity ROM WFL -LM [facility] Name 04/06/25 1145 Strength Comprehensive (MMT) General Manual Muscle Testing (MMT) Assessment no strength deficits identified BLEs -LM [facility] Name 04/06/25 1145 Balance Balance Assessment [...] home at d/c. PT signing off. -LM [facility] Name 04/06/25 1146 Therapy Assessment/Plan (PT) Criteria for Skilled Interventions Met (PT) no;no problems identified which require skilled intervention -LM Therapy Frequency (PT) evaluation only -LM Predicted Duration of Therapy Intervention (PT) Eval Only -LM [facility] Name 04/06/25 1146 Vital Signs Pretreatment Heart Rate (beats/min) 86 -LM Posttreatment Heart Rate (beats/min) 96 -LM Pre SpO2 (%) 95 -LM O2 Delivery Pre Treatment room air -LM Post SpO2 (%) 96 -LM O2 Delivery Post Treatment room air -LM Pre Patient Position Sitting -LM Post Patient Position Sitting -LM [facility] Name 04/06/25 1146 Positioning and Restraints [...] Nurse Physical Therapy Education Title: PT OT STRATEGY PLANNING CONSULTANT Therapies (Done) Topic: Physical Therapy (Done) Point: Mobility training (Done) Learning Progress Summary Patient Acceptance, E, VU,DU by at 04/06/2025 1147 Point: Precautions (Done) Learning Progress Summary Patient Acceptance, E, VU,DU by at 04/06/2025 1147 User Cabrera Initials Effective Dates Name Provider Type [facility] 01/24/25 - Susan Cavazos, PT Physical [...] Description Service Date Service Provider Modifiers Qty [id number] PT EVAL LOW COMPLEXITY 3 04/06/2025 Susan [...] mg Daily 04/05/2025 -- Route: Oral heparin 31518 units/250 mL (100 units/mL) in 0.45 % [...] [facility] [address], [address] [facility], [address] Please schedule at [phone] VONDA Garcia 04/11/25 08:32 EDT Cosigned by Sushil Dean Jr., MD at 04/19/2025 10:33 AM EDT Associated attestation - Sushil Dean Jr., MD - 04/19/2025 10:33 AM EDT I have reviewed this documentation and agree. * Rosario Hill APRN - 04/10/2025 1:24 PM EDT Images from the original note were not included. [facility] Medicine Services PROGRESS NOTE Patient [...] Date/Time Wound Culture - Swab, Leg, Right [[id number]] (Abnormal) (Susceptibility) Collected: 04/07/252106 Lab Status: Final [...] mg Daily 04/05/2025 -- Route: Oral heparin 16238 units/250 mL (100 units/mL) in 0.45 % [...] [facility] [address] [facility], [address] [facility], [address] Please schedule at [phone] VONDA Garcia 04/10/25 09:01 EDT Cosigned by Sushil Dean Jr., MD at 04/19/2025 10:33 AM EDT Associated attestation - Sushil Dean Jr., MD - 04/19/2025 10:33 AM EDT I have reviewed this documentation and agree. * Carlton Mead MD - 04/10/2025 7:38 AM EDT Images from the original note were not included. INFECTIOUS DISEASE Progress Note Won Dennis 1980 [id number] Date of Consult: 04/10/2025 Admission Date: 04/04/2025 [...] IRRIGATION; Surgeon: Sushil Dean Jr., MD; Location: [facility]; Service: Orthopedics; Laterality: Right; PLACEMENT OF WOUND VAC Right 04/07/2025 Procedure: WOUND VACUUM ASSISTED CLOSURE; Surgeon: Sushil Dean Jr., MD; Location: [facility]; Service: Orthopedics; Laterality: Right; WOUND CLOSURE [...] Jr., MD, 20 mg at 04/09/25906 heparin 82389 units/250 mL (100 units/mL) in 0.45 % [...] Units Date/Time FL C Arm During Surgery [[id number]] Resulted: 04/07/252137 Updated: 04/07/252137 Narrative: This procedure was auto-finalized with no dictation required. MRI Tibia Fibula Right With & Without Contrast [[id number]] Collected: 04/07/25937 Updated: 04/07/25 100 Narrative: MRI [...] Buenrostro 04/07/2025 9:58 AM EDT Workstation ID: [id number] Impression: Recurrent Right BKA stump abscess/cellulitis- this [...] 04/10/2025 07:38 EDT * Larisa Hamilton [facility] [...] from the original note were not included. [facility] Medicine Services PROGRESS NOTE Patient [...] Date/Time Wound Culture - Swab, Leg, Right [[id number]] (Abnormal) Collected: 04/07/252106 Lab Status: Preliminary result [...] Álvarez DO 04/09/25 * [facility] [...] -- Admin Instructions: Open Order & Select [facility] Electrolyte Replacement Protocol Algorithm to View Details [...] mg Daily 04/05/2025 -- Route: Oral heparin 09293 units/250 mL (100 units/mL) in 0.45 % [...] -- Admin Instructions: Open Order & Select [facility] Electrolyte Replacement Protocol Algorithm to View Details [...] [facility] [address] [facility] [address], [address] [facility], [address] Please schedule at [phone] VONDA Garcia 04/09/25 09:18 EDT Cosigned by Sushil Dean Jr., MD at 04/19/2025 10:33 AM EDT Associated attestation - Sushil Dean Jr., MD - 04/19/2025 10:33 AM EDT I have reviewed this documentation and agree. * Carlton Mead MD - 04/09/2025 8:25 AM EDT Images from the original note were not included. INFECTIOUS DISEASE Progress Note Won Dennis 1980 [id number] Date of Consult: 04/09/2025 Admission Date: 04/04/2025 [...] Sushil Dean Jr., MD; Location: [facility]; Service: Orthopedics; Laterality: Right; PLACEMENT OF WOUND VAC Right 04/07/2025 Procedure: WOUND VACUUM ASSISTED CLOSURE; Surgeon: Sushil Dean Jr., MD; Location: [facility] OR; Service: Orthopedics; Laterality: Right; [...] MD, 20 mg at 04/08/25 0800 heparin 82731 units/250 mL (100 units/mL) in 0.45 % [...] flush 10 mL, 10 mL, Intravenous, PRN, uSshil Dean Jr., MD sodium chloride 0.9 % [...] mL 0.9% NS IVPB ([facility]) Ordering Provider: Mairo Crowley, DO 20 mg/kg [...] Units Date/Time FL C Arm During Surgery [[id number]] Resulted: 04/07/252137 Updated: 04/07/252137 Narrative: This procedure was auto-finalized with no dictation required. MRI Tibia Fibula Right With & Without Contrast [[id number]] Collected: 04/07/25 0938 Updated: 04/07/25 1001 Narrative: [...] Chitra 04/07/2025 9:58 AM EDT Workstation ID: [id number] Impression: Recurrent Right BKA stump abscess/cellulitis- this [...] from the original note were not included. [facility] Medicine Services PROGRESS NOTE Patient [...] Buenrostro 04/07/2025 9:58 AM EDT Workstation ID: [id number] I have personally reviewed the therapy plans: [...] Álvarez, DO 04/08/25 * Hamilton, Larisa, [facility] - [...] -- Admin Instructions: Open Order & Select [facility] Electrolyte Replacement Protocol Algorithm to View Details [...] INFECTIOUS DISEASE Progress Note Won Dennis 1980 [id number] Date of Consult: 04/08/2025 Admission Date: 04/04/2025 [...] Sushil Dean Jr., MD; Location: [facility] OR; Service: Orthopedics; Laterality: Right; PLACEMENT OF WOUND VAC Right 04/07/2025 Procedure: WOUND VACUUM ASSISTED CLOSURE; Surgeon: Sushil Dean Jr., MD; Location: [facility] OR; Service: Orthopedics; Laterality: Right; [...] Oral, Q6H PRN, 500 mg at 04/06/25 3374 OR acetaminophen (TYLENOL) 160 MG/5ML oral solution [...] BPA Driven Protocol, , Not Applicable, PRN, uSshil Dean Jr., MD cefTRIAXone (ROCEPHIN) 2,000 mg [...] Jr., MD, 20 mg at 04/07/25950 heparin 90882 units/250 mL (100 units/mL) in 0.45 % [...] vancomycin 2750 mg/500 mL 0.9% NS IVPB ([facility]) Ordering Provider: Mario Crowley, DO 20 mg/kg [...] Units Date/Time FL C Arm During Surgery [[id number]] Resulted: 04/07/252137 Updated: 04/07/252137 Narrative: This procedure was auto-finalized with no dictation required. 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 (Treated by ID in [place] Dr. Harris). Dr. Torres treated him with [...] from the original note were not included. [facility] Medicine Services PROGRESS NOTE Patient [...] Buenrostro 04/07/2025 9:58 AM EDT Workstation ID: [id number] I have personally reviewed the therapy plans: [...] DO Preeti 04/07/25 * Larisa Hamilton, [facility] - [...] INFECTIOUS DISEASE Progress Note Won Dennis 1980 [id number] Date of Consult: 04/07/2025 Admission Date: 04/04/2025 [...] MD, 20 mg at 04/06/25 0900 heparin 44308 units/250 mL (100 units/mL) in 0.45 % [...] With & Without Contrast - In process [[id number]] Resulted: 04/07/25828 Updated: 04/07/25828 This result has not been signed. Information might be incomplete. 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 (Treated by ID in [place] Dr. Harris). Dr. Torres treated him with [...] -- Admin Instructions: Open Order & Select [facility] Electrolyte Replacement Protocol Algorithm to View Details [...] mg Daily 04/05/2025 -- Route: Oral heparin 42609 units/250 mL (100 units/mL) in 0.45 % [...] -- Admin Instructions: Open Order & Select [facility] Electrolyte Replacement Protocol Algorithm to View Details [...] from the original note were not included. [facility] Medicine Services PROGRESS NOTE Patient [...] MD 04/04/2025 11:00 PM EDT Workstation ID: [id number] I have personally reviewed the therapy plans: [...] mg Daily 04/05/2025 -- Route: Oral heparin 36682 units/250 mL (100 units/mL) in 0.45 % [...] -- Admin Instructions: Open Order & Select [facility] Electrolyte Replacement Protocol Algorithm to View Details [...] -- Admin Instructions: Open Order & Select [facility] Electrolyte Replacement Protocol Algorithm to View Details [...] INFECTIOUS DISEASE follow up. Won Dennis 1980 [id number] Date of Consult: 04/06/2025 Admission Date: 04/04/2025 [...] MD, 20 mg at 04/06/25 0900 heparin 05097 units/250 mL (100 units/mL) in 0.45 % [...] Tibia Fibula Right With & Without Contrast [[id number]] Collected: 04/04/252256 Updated: 04/04/252302 Narrative: MRI TIBIA [...] represent a small area of phlegmonous change (odsrpd14 image 10) measuring approximately 1.6 cm which [...] MD 04/04/2025 11:00 PM EDT Workstation ID: [id number] Impression: 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 (Treated by ID in [place] Dr. Harris). Dr. Torres treated him with [...] from the original note were not included. [facility] Medicine Services PROGRESS NOTE Patient [...] MD 04/04/2025 11:00 PM EDT Workstation ID: [id number] I have personally reviewed the therapy plans: [...] documented in this encounter H&P Notes * eLonora Shepherd MD - 04/04/2025 8:40 PM EDT Images from the original note were not included. [facility] Medicine Services HISTORY AND PHYSICAL [...] MD 04/04/2025 11:00 PM EDT Workstation ID: [id number] Assessment & Plan Assessment & Plan Won [...] 4FR PICC placed by Rhoda Bonner RN [facility], tip verified by 3CG see LDA. * Sushil Dean Jr., MD - 04/05/2025 8:07 AM EDTAssociated Order(s): IP CONSULT TO ORTHOPEDIC SURGERY [facility], [facility] [address] [address] Orthopedic Consult Patient: Won Dennis Date of Admission: 04/04/2025 4:10 PM Date of : 1980 Attending Physician: Jason Álvarez DO Consulting Physician: Sushil Dean Jr, MD Chief Complaint: 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 male admitted to [facility] with 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]. [...] was evaluated in the emergency department in [place], was discharged with instructions for follow-up. He [...] tablet by mouth Daily. 04/03/2025 Morning Lactobacillus-Inulin ([facility]) capsule Take 200 mg by mouth [...] MD 04/04/2025 11:00 PM EDT Workstation ID: [id number] Assessment: Right BKA infection 44-year-old male with [...] DISEASE CONSULT/INITIAL HOSPITAL VISIT Won Dennis 1980 [id number] Date of Consult: 04/05/2025 Admission Date: 04/04/2025 [...] Leonora Shepherd MD, 40 mg at 04/04/25 4953 sennosides-docusate (PERICOLACE) 8.6-50 MG per tablet 2 [...] tablet 20 mg, 20 mg, Oral, Daily, eLonora Shepherd MD, 20 mg at 04/05/25 09 heparin 20492 units/250 mL (100 units/mL) in 0.45 % [...] Leonora Shepherd MD, 10 mg at 04/04/25 4222 Pharmacy to Dose Heparin, , Not Applicable, [...] Tibia Fibula Right With & Without Contrast [[id number]] Collected: 04/04/252256 Updated: 04/04/252302 Narrative: MRI TIBIA [...] MD 04/04/2025 11:00 PM EDT Workstation ID: [id number] Impression: 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 (Treated by ID in [place] Dr. Harris). Dr. Torres treated him with [...] Jr., MD - 04/08/2025 3:51 PM EDT [facility] OPERATIVE REPORT PATIENT NAME: Won Dennis DATE OF : 1980 PREOP DIAGNOSIS: Right Right below-knee amputation infection POSTOP DIAGNOSIS: Same. PROCEDURE: Right Right 57057: Secondary closure below-knee amputation SURGEON: Sushil Dean MD OPERATIVE TEAM: Founder & Ceo: Susi Grullon RN Scrub Person: Mary Paredes Scrub Person Extra: Hortencia Toribio Other: Katt Gotti RN; Charis Neville RN ANESTHETIST: Anesthesiologist: Ulises Hoffman MD EYEGLASS FRAMES INSPECTOR: Stan Casillas CRNA Student Nurse Weight Loss Sales Consultant: Karol Albert SRNA ANESTHESIA: Choice ESTIMATED BLOOD [...] CULTURE (Canceled) Sushil Dean Jr., MD 04/08/25 5474 Description: RIGHT LEG DEEP WOUND FOR CULTURE [...] EDT [facility], [place] [address] OPERATIVE REPORT PATIENT NAME: Won Dennis DATE OF : 1980 PREOP DIAGNOSIS: Right Right below knee amputation stump infection POSTOP DIAGNOSIS: Same. PROCEDURE: Right Right 75923: Incision and drainage of surgical site infection 76338: Debridement of skin, subcutaneous tissue, muscle 24749: Wound vacuum-assisted closure SURGEON: Sushil Dean MD OPERATIVE TEAM: Founder & Ceo: Anum Sanchez RN Scrub Person: Hortencia Toribio; Gerald Ivey CRATE LINER: Anesthesiologist: Luci Alonso DO ANESTHESIA: General ESTIMATED [...] this chart in the absence of a supervisor hospitality house. No orders to display RADIOLOGY: [x] Radiologist's [...] is discharging home with outpatient infusion at [facility]. He has an appointment with [facility] at 8:00 am tomorrow. [...] with KELLEE and given themhis Medicare number [id number], she sent it to Admission. DEBRA spoke with Kerri, with [facility], and explained that he had Medicare A and B. However, it will not cover home infusion. It will be $64.00 a day out of packet. Patients can go to the Infusion center at [facility], and it will cover the cost as an outpatient. He will need to go there every day for infusion. They will be able to do the patients' PICC line dressing changes and lab work. DEBRA called [facility] Outpatient infusion center they can accept patient and start him. He is known for their facility. The Facility will need to run it through his insurance first. CM faxed the orders over to [facility] at [phone]. CM will follow up with them tomorrow at [facility] to make sure they [...] 04/09/2025 2:51 PM EDT Continued Stay Note [facility] Patient Name: Won Dennis Today's Date: 04/09/2025 Admit Date: 04/04/2025 Plan: Home Discharge Plan Row Name 04/09/25 1311 Plan Plan Home Patient/Family in Agreement with Plan yes Plan Comments CM spoke with patient at bedside today. Wheelchair from [employer] is at bedside. Patient getting PICC line [...] note were not included. 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 Patient lives with and his 5 kids in [place]. 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 He has walker, cane, shower chair, and crutches. He requested a wheelchair for home. CM will order wheelchair through [facility]. He is not current with home health services. PCP is Dr. Jordan. Insurance is [employer] [place]. Patient discharge plan is home with priavte transport. CM will follow for any discharge needs. Final Discharge Disposition Code 01 - home or self-care Continued Care and Services - Admitted Since 04/04/2025 No active coordination exists. Demographic Summary Row Name 04/07/25 1143 General Information Arrived From hospital Preferred Language Vietnamese Functional Status Row Name 04/07/25 1143 Functional [...] CBC Auto Differential (04/11/2025 3:40 AM EDT) [facility] WBC 7.87 3.40 - 10.80 10*3/mm3 04/11/2025 4:02 AM EDT [facility] RBC 4.70 4.14 - 5.80 10*6/mm3 04/11/2025 4:02 AM [facility] Hemoglobin 12.8(L) 13.0 - 17.7 g/dL 04/11/2025 4:02 AM [facility] Hematocrit 40.5 37.5 - 51.0 % 04/11/2025 4:02 AM [facility] MCV 86.2 79.0 - 97.0 fL 04/[facility] MCH 27.2 26.6 - 33.0 pg 04/11/2025 4:02 AM [facility] MCHC 31.6 31.5 - 35.7 g/dL 04/11/2025 4:02 AM [facility] RDW 12.9 12.3 - 15.4 % 04/11/2025 4:02 AM [facility] RDW-SD 40.5 37.0 - 54.0 fl 04/11/2025 4:02 AM [facility] MPV 9.2 6.0 - 12.0 fL 04/11/2025 4:02 AM [facility] Platelets 267 140 - 450 10*3/mm3 04/11/2025 4:02 AM [facility] Neutrophil % 59.5 42.7 - 76.0 % 04/11/2025 4:02 AM [facility] Lymphocyte % 26.3 19.6 - 45.3 % 04/11/2025 4:02 AM [facility] Monocyte % 9.3 5.0 - 12.0 % 04/11/2025 4:02 AM [facility] [facility] Eosinophil % 4.1 0.3 - 6.2 % 04/11/2025 4:02 [facility] Basophil % 0.4 0.0 - 1.5 % 04/11/2025 4:02 [facility] Immature Grans % 0.4 0.0 - 0.5 % 04/11/2025 4:02 AM [facility] Neutrophils, Absolute 4.69 1.70 - [...] Fi nal Result [facility]
[address] [place] [address], * (ABNORMAL) Comprehensive Metabolic Panel (04/11/2025 3:40 AM EDT) [facility] Signature Glucose 108(H) 65 - 99 mg/dL 04/11/2025 4:19 AM EDT [facility] BUN 12.5 6.0 - 20.0 mg/dL 04/11/2025 4:19 AM EDT [facility] Creatinine 0.68(L) 0.76 - 1.27 mg/dL 04/11/2025 4:19 AM [facility] Sodium 140 136 - 145 mmol/L 04/11/2025 4:19 AM [facility] Potassium 3.8 3.5 - 5.2 mmol/L 04/11/2025 4:19 AM [facility] Chloride 105 98 - 107 mmol/L 04/11/2025 4:19 AM [facility] CO2 28.2 22.0 - 29.0 mmol/L 04/11/2025 4:19 AM [facility] Calcium 8.2(L) 8.6 - 10.5 mg/dL 04/11/2025 4:19 AM [facility] Total Protein 6.1 6.0 - 8.5 g/dL 04/11/2025 4:19 AM [facility] Albumin 3.1(L) 3.5 - 5.2 g/dL 04/11/2025 4:19 AM [facility] ALT (SGPT) 52(H) 1 - 41 U/L 04/11/2025 4:19 AM [facility] AST (SGOT) 40 1 - 40 U/L 04/11/2025 4:19 AM [facility] Alkaline Phosphatase 99 39 - 117 U/L 04/11/2025 4:19 AM [facility] Total Bilirubin 0.2 0.0 - 1.2 mg/dL 04/11/2025 4:19 AM [facility] Globulin 3.0 gm/dL 04/11/2025 4:19 AM [facility] Comment:Calculated Result A/G Ratio 1.0 g/dL 04/11/2025 4:19 AM [facility] BUN/Creatinine Ratio 18.4 7.0 - 25.0 04/11/2025 4:19 AM [facility] Anion Gap 6.8 5.0 - 15.0 mmol/L 04/11/2025 4:19 AM [facility] eGFR 117.5 >60.0 mL/min/1.7 3 04/11/2025 4:19 AM EDT [facility] Blood Venipuncture / Unknown 04/11/2025 3:40 AM EDT 04/11/2025 3:56 AM EDT [facility] - 04/11/2025 4:19 AM [...] include race as a factor Rosario Hill [employer] LAB BLOOD ORDERABLES Final Result [facility]
[address] [place] [address], * (ABNORMAL) CBC Auto Differential (04/10/2025 3:46 [...] 35.7 g/dL 04/10/2025 3:56 [facility] RDW 12.9 12.3 - 15.4 % 04/10/2025 3:56 AM [facility] RDW-SD 40.5 37.0 - 54.0 fl 04/10/2025 3:56 AM [facility] MPV 9.5 6.0 - 12.0 fL 04/10/2025 3:56 AM EDT [facility] Platelets 227 140 - 450 10*3/mm3 04/10/2025 3:56 AM [facility] Neutrophil % 59.1 42.7 - 76.0 % 04/10/2025 3:56 AM [facility] Lymphocyte % 29.0 19.6 - 45.3 % 04/10/2025 3:56 AM [facility] Monocyte % 8.1 5.0 - 12.0 % 04/10/2025 3:56 [facility] Eosinophil % 3.2 0.3 - 6.2 % 04/10/2025 3:56 AM [facility] Basophil % 0.4 0.0 - 1.5 % 04/10/2025 3:56 AM [facility] Immature Grans % 0.2 0.0 - 0.5 % 04/10/2025 3:56 AM [facility] Neutrophils, Absolute 5.67 1.70 - 7.00 10*3/mm3 04/10/2025 3:56 [facility] Lymphocytes, Absolute 2.78 0.70 - 3.10 10*3/mm3 04/10/2025 3:56 AM [facility] Monocytes, Absolute 0.78 0.10 - 0.90 10*3/mm3 04/10/2025 3:56 AM [facility] Eosinophils, Absolute 0.31 0.00 - 0.40 10*3/mm3 04/10/2025 3:56 AM [facility] Basophils, Absolute 0.04 0.00 - 0.20 [...] Final Resul t [facility]
[address] [place] [address], * (ABNORMAL) Basic Metabolic Panel (04/10/2025 3:46 [...] - 10.5 mg/dL 04/10/2025 4:20 AM EDT [facility] BUN/Creatinine Ratio 20.6 7.0 - 25.0 [...] Resul t [facility]
[address] [place] [address], * Heparin Anti-Xa (04/10/2025 3:46 AM EDT) Heparin Anti-Xa (UFH) 0.35 0.30 - 0.70 IU/ml 04/10/2025 4:23 AM EDT [facility] Blood Venipuncture / Unknown 04/10/2025 3:46 AM EDT 04/10/2025 3:53 AM EDT Larisa Hamilton [facility] LAB BLOOD ORDERABLES Final R esult [facility]
[address] [place] [address], * Heparin Anti-Xa (04/09/2025 10:05 AM EDT) Pathologist [facility] Heparin Anti-Xa (UFH) 0.36 0.30 - 0.70 IU/ml 04/09/2025 11:12 AM EDT [facility] Blood Venipuncture / Unknown 04/09/2025 10:05 AM EDT 04/09/2025 10:47 AM EDT Larisa aHmilton [facility] LAB BLOOD ORDERABLES Final R esult [facility]
[address] [place] [address], * (ABNORMAL) CBC Auto Differential (04/09/2025 4:18 [...] 12.3 - 15.4 % 04/09/2025 4:50 AM [facility] RDW-SD 39.9 37.0 - 54.0 fl 04/09/2025 4:50 AM [facility] MPV 10.0 6.0 - 12.0 fL 04/09/2025 4:50 AM [facility] Platelets 211 140 - 450 10*3/mm3 04/09/2025 4:50 AM [facility] Neutrophil % 74.8 42.7 - 76.0 % 04/09/2025 4:50 AM [facility] Lymphocyte % 15.4(L) 19.6 - 45.3 % 04/09/2025 4:50 AM [facility] Monocyte % 8.5 5.0 - 12.0 % 04/09/2025 4:50 AM [facility] Eosinophil % 0.6 0.3 - 6.2 % 04/09/2025 4:50 AM [facility] Basophil % 0.4 0.0 - 1.5 % 04/09/2025 4:50 AM [facility] Immature Grans % 0.3 0.0 - 0.5 % 04/09/2025 4:50 AM [facility] Neutrophils, Absolute 8.23(H) 1.70 - 7.00 10*3/mm3 04/09/2025 4:50 AM [facility] Lymphocytes, Absolute 1.69 0.70 - 3.10 10*3/mm3 04/09/2025 4:50 AM [facility] Monocytes, Absolute 0.94(H) 0.10 - 0.90 10*3/mm3 04/09/2025 4:50 AM [facility] Eosinophils, Absolute 0.07 0.00 - 0.40 10*3/mm3 04/09/2025 4:50 AM [facility] Basophils, Absolute 0.04 0.00 - 0.20 10*3/mm3 04/09/2025 4:50 AM [facility] Immature Grans, Absolute 0.03 0.00 - 0.05 10*3/mm3 04/09/2025 4:50 AM EDT [facility] nRBC 0.0 0.0 - 0.2 /100 WBC 04/09/2025 4:50 AM EDT [facility] Blood Venipuncture / Unknown 04/09/2025 4:18 AM EDT 04/09/2025 4:31 AM EDT Sushil Dean Jr., MD LAB BLOOD ORDERABLES Fi nal Result [facility]
[address] [place] [address], * Heparin Anti-Xa (04/09/2025 4:18 AM EDT) Heparin Anti-Xa (UFH) 0.41 0.30 - 0.70 IU/ml 04/09/2025 4:53 AM EDT [facility] Blood Venipuncture / Unknown 04/09/2025 4:18 AM EDT 04/09/2025 4:31 AM EDT Una LundbergD LAB BLOOD ORDERABLES Final R esult [facility]
[address] [place] [address], * (ABNORMAL) Basic Metabolic Panel (04/09/2025 4:18 [...] 4:18 AM EDT 04/09/2025 4:29 AM EDT [facility] - 04/09/2025 5:33 AM EDT [...] Fi nal Result [facility]
[address] [place] [address], * Wound Culture - Swab, Leg, Right (04/08/2025 3:40 PM EDT) Wound Culture No growth at 3 days ALIZA 04/11/2025 10:40 AM EDT [facility] Gram Stain Few [...] Organization Address City/[facility]/ZIP Co de Phone Number [facility]
[address] [place] [address], [facility]
[address] [place] [address], * Anaerobic Culture - Swab, Leg, Right (04/08/2025 3:40 PM EDT) Pathologist [facility] Anaerobic Culture No anaerobes isolated at 5 days ALIZA 04/13/2025 7:24 AM EDT [facility] Swab Structure of right lower limb / Unknown 04/08/2025 3:40 PM EDT 04/08/2025 8:05 PM EDT Sushil Dean Jr., MD MICROBIOLOGY - GENERAL ORDERABLES Final Result [facility]
[address] [place] [address], * Scan Slide (04/08/2025 8:41 AM EDT) [...] Final R esult [facility]
[address] [place] [address], * (ABNORMAL) CBC Auto Differential (04/08/2025 8:41 [...] 37.0 - 54.0 fl 04/08/2025 11:02 AM [facility] MPV 11.0 6.0 - 12.0 fL 04/08/2025 11:02 AM [facility] Platelets 118(L) 140 - 450 10*3/mm3 04/08/2025 11:02 AM [facility] Neutrophil % 85.1(H) 42.7 - 76.0 % 04/08/2025 11:02 AM [facility] Lymphocyte % 9.3(L) 19.6 - 45.3 % 04/08/2025 11:02 AM [facility] Monocyte % 4.6(L) 5.0 - 12.0 % 04/08/2025 11:02 AM [facility] Eosinophil % 0.3 0.3 - 6.2 % 04/08/2025 11:02 AM [facility] Basophil % 0.2 0.0 - 1.5 % 04/08/2025 11:02 AM [facility] Immature Grans % 0.5 0.0 - 0.5 % 04/08/2025 11:02 AM [facility] Neutrophils, Absolute 8.57(H) 1.70 - 7.00 10*3/mm3 04/08/2025 11:02 AM [facility] Lymphocytes, Absolute 0.94 0.70 - 3.10 10*3/mm3 04/08/2025 11:02 AM [facility] Monocytes, Absolute 0.46 0.10 - 0.90 10*3/mm3 04/08/2025 11:02 AM [facility] Eosinophils, Absolute 0.03 0.00 - 0.40 10*3/mm3 04/08/2025 11:02 AM [facility] Basophils, Absolute 0.02 0.00 - 0.20 10*3/mm3 04/08/2025 11:02 AM [facility] Immature Grans, Absolute 0.05 0.00 - 0.05 10*3/mm3 04/08/2025 11:02 AM EDT [facility] nRBC 0.0 0.0 - 0.2 /100 WBC 04/08/2025 11:02 AM EDT [facility] Blood Venipuncture / Unknown 04/08/2025 8:41 AM EDT 04/08/2025 9:10 AM EDT Una Perla PharmD LAB BLOOD ORDERABLES Final R esult [facility]
[address] [place] [address], * (ABNORMAL) Basic Metabolic Panel (04/08/2025 8:41 [...] ORDERABLES Fi nal Result Performing Organization Address City/[facility]/ZIP Co de Phone Number [facility]
[address] [place] [address], * Heparin Anti-Xa (04/08/2025 8:41 AM EDT) Heparin Anti-Xa (UFH) 0.33 0.30 - 0.70 IU/ml 04/08/2025 9:40 AM EDT [facility] Blood Venipuncture / Unknown 04/08/2025 8:41 AM EDT 04/08/2025 9:10 AM EDT us Sushil Dean Jr., MD LAB BLOOD ORDERABLES Fi nal Result [facility]
[address] [place] [address], * FL C Arm During Surgery (04/07/2025 9:32 PM EDT) Narrative SYSTEMGENERATED, DOCUMENTATION - 04/07/2025 9:38 PM EDT This procedure was auto-finalized with no dictation required. us Sushil Dean Jr., MD IMG FLUOROSCOPY ORDERAB LES Final Result * Wound Culture - Swab, Leg, Right (04/07/2025 9:14 PM EDT) Wound Culture No growth at 3 days ALIZA 04/11/2025 10:40 AM EDT [facility] Gram Stain Occasional [...] Organization Address City/[facility]/ZIP Co de Phone Number [facility]
[address] [place] [address], [facility]
[address] [place] [address], * Anaerobic Culture - Swab, Leg, Right (04/07/2025 9:14 PM EDT) Anaerobic Culture No anaerobes isolated at 5 days ALIZA 04/13/2025 7:21 AM EDT [facility] Swab Structure of right lower limb / Unknown Collection / Unknown 04/07/2025 9:14 PM EDT 04/08/2025 4:36 AM EDT us Sushil Dean Jr., MD MICROBIOLOGY - GENERAL ORDERABLES Final Result [facility]
[address] [place] [address], * Anaerobic Culture - Tissue, Leg (04/07/2025 9:13 PM EDT) Pathologist [facility] Anaerobic Culture No anaerobes isolated at 5 days ALIZA 04/13/2025 7:21 AM EDT [facility] Tissue Lower limb structure / Unknown Collection / Unknown 04/07/2025 9:13 PM EDT 04/08/2025 4:54 AM EDT Jason Álvarez DO MICROBIOLOGY - GENERAL ORDERABLE S Final Result [facility]
[address] [place] [address], * Tissue / Bone Culture - Tissue, Leg, Right (04/07/2025 9:13 PM EDT) [facility] Tissue Culture No growth at 3 days ALIZA 04/11/2025 10:36 AM EDT [facility] Gram Stain Rare (1+) WBCs seen 04/11/2025 10:36 AM EDT [facility] Gram Stain No organisms seen 04/11/2025 10:36 AM EDT [facility] Tissue Structure of right lower limb / Unknown 04/07/2025 9:13 PM EDT 04/08/2025 4:54 AM EDT Sushil Dean Jr., MD MICROBIOLOGY - GENERAL ORDERABLES Final Result [facility]
[address] [place] [address], [facility]
[address] [place] [address], * (ABNORMAL) Wound Culture - Swab, Leg, Right (04/07/2025 9:07 PM EDT) Pathologist [facility] Wound Culture Light growth (2+) Staphylococcus aureus, MRSA(A) ALIZA 04/10/2025 10:38 AM EDT [facility] Comment: Methicillin resistant [...] MD MICROBIOLOGY - GENERAL ORDERABLES Final Result [facility]
[address] [place] [address], [place] [phone] [facility]
[address] [place] [address], [place] [phone] * Anaerobic Culture - Swab, Leg, Right (04/07/2025 9:07 PM EDT) Anaerobic Culture No anaerobes isolated at 5 days ALIZA 04/13/2025 7:21 AM EDT [facility] Swab Structure of right lower limb / Unknown Collection / Unknown 04/07/2025 9:07 PM EDT 04/08/2025 4:36 AM EDT us Sushil Dean Jr., MD MICROBIOLOGY - GENERAL ORDERABLES Final Result [facility]
[address] [place] [address], * Heparin Anti-Xa (04/07/2025 9:10 AM EDT) [facility] Heparin Anti-Xa (UFH) 0.30 0.30 - 0.70 IU/ml 04/07/2025 10:12 AM EDT [facility] Blood Venipuncture / Unknown 04/07/2025 9:10 AM EDT 04/07/2025 9:38 AM EDT Una Perla PharmD LAB BLOOD ORDERABLES Final R esult [facility]
[address] [place] [address], * (ABNORMAL) CBC Auto Differential (04/07/2025 9:10 AM EDT) [facility] WBC 8.63 3.40 - 10.80 10*3/mm3 [...] 12.3 - 15.4 % 04/07/2025 9:50 AM [facility] RDW-SD 39.9 37.0 - 54.0 fl 04/07/2025 9:50 AM [facility] MPV 10.8 6.0 - 12.0 fL 04/07/2025 9:50 AM [facility] Platelets 149 140 - 450 10*3/mm3 04/07/2025 9:50 AM [facility] Neutrophil % 66.7 42.7 - 76.0 % 04/07/2025 9:50 AM [facility] Lymphocyte % 20.5 19.6 - 45.3 % 04/07/2025 9:50 AM [facility] Monocyte % 9.8 5.0 - 12.0 % 04/07/2025 9:50 AM [facility] Eosinophil % 2.1 0.3 - 6.2 % 04/07/2025 9:50 AM [facility] Basophil % 0.3 0.0 - 1.5 % 04/07/2025 9:50 AM [facility] Immature Grans % 0.6(H) 0.0 - 0.5 % 04/07/2025 9:50 AM [facility] Neutrophils, Absolute 5.75 1.70 - 7.00 10*3/mm3 04/07/2025 9:50 AM [facility] Lymphocytes, Absolute 1.77 0.70 - 3.10 10*3/mm3 04/07/2025 9:50 AM [facility] Monocytes, Absolute 0.85 0.10 - 0.90 10*3/mm3 04/07/2025 9:50 AM [facility] Eosinophils, Absolute 0.18 0.00 - 0.40 10*3/mm3 04/07/2025 9:50 AM [facility] Basophils, Absolute 0.03 0.00 - 0.20 10*3/mm3 04/07/2025 9:50 AM [facility] Immature Grans, Absolute 0.05 0.00 - 0.05 10*3/mm3 04/07/2025 9:50 AM EDT [facility] nRBC 0.0 0.0 - 0.2 /100 WBC 04/07/2025 9:50 AM EDT [facility] Blood Venipuncture / Unknown 04/07/2025 9:10 AM EDT 04/07/2025 9:38 AM EDT Jasonalfonso Álvarez LAB BLOOD ORDERABLES Final Resul t [facility]
[address] [place] [address], * (ABNORMAL) Basic Metabolic Panel (04/07/2025 9:10 [...] Álvarez LAB BLOOD ORDERABLES Final Resul t [facility]
[address] [place] [address], * MRI Tibia Fibula Right With & [...] [place] 04/07/2025 9:58 AM EDT Workstation ID: [id number] Narrative 04/07/2025 9:58 AM EDT MRI TIBIA [...] [place] 04/07/2025 9:58 AM EDT Workstation ID: [id number] Sushil Dean Jr., MD IM MRI ORDERABLES Mary Beth l Result * Heparin Anti-Xa (04/07/2025 1:42 AM EDT) [facility] Heparin Anti-Xa (UFH) 0.38 0.30 - 0.70 IU/ml 04/07/2025 2:14 AM EDT [facility] Blood Venipuncture / Unknown 04/07/2025 1:42 AM EDT 04/07/2025 1:54 AM EDT Chelsie Turpin [facility] LAB BLOOD ORDERABLES Final R esult [facility]
[address] [place] [address], * Heparin Anti-Xa (04/06/2025 7:16 PM EDT) [facility] Heparin Anti-Xa (UFH) 0.33 0.30 - 0.70 IU/ml 04/06/2025 7:50 PM EDT [facility] Blood Venipuncture / Unknown 04/06/2025 7:16 PM EDT 04/06/2025 7:35 PM EDT Cherri Beatty RP LAB BLOOD ORDERABLES Final Res ult Performing Organization Address City/[facility]/ZIP Co de Phone Number [facility]
[address] [place] [address], * Potassium (04/06/2025 7:16 PM EDT) Potassium 4.0 3.5 - 5.2 mmol/L 04/06/2025 7:53 PM EDT [facility] Blood Venipuncture / Unknown 04/06/2025 7:16 PM EDT 04/06/2025 7:35 PM EDT Jason Álvarez DO LAB BLOOD ORDERABLES Final Resul t Performing Organization Address [facility] de Phone Number [facility]
[address] [place] [address], * (ABNORMAL) Heparin Anti-Xa (04/06/2025 12:36 PM EDT) Heparin Anti-Xa (UFH) 0.24(L) 0.30 - 0.70 IU/ml 04/06/2025 1:23 PM EDT [facility] Blood Venipuncture / Unknown 04/06/2025 12:36 PM EDT 04/06/2025 1:07 PM EDT Una LundbergD LAB BLOOD ORDERABLES Final R esult Performing Organization Address [facility] Co de Phone Number [facility]
[address] [place] [address], * (ABNORMAL) Heparin Anti-Xa (04/06/2025 3:42 AM EDT) Heparin Anti-Xa (UFH) 0.25(L) 0.30 - 0.70 IU/ml 04/06/2025 5:30 AM EDT [facility] Blood Venipuncture / Unknown 04/06/2025 3:42 AM EDT 04/06/2025 4:59 AM EDT Chelsie Turpin [facility] LAB BLOOD ORDERABLES Final R esult [facility]
[address] [place] [address], * (ABNORMAL) Basic Metabolic Panel (04/06/2025 3:42 AM EDT) Pathologist [facility] Glucose 94 65 - 99 [...] Final Resul t [facility]
[address] [place] [address], * (ABNORMAL) CBC Auto Differential (04/06/2025 3:41 [...] 79.0 - 97.0 fL 04/06/2025 5:04 AM [facility] MCH 27.4 26.6 - 33.0 pg 04/06/2025 5:04 AM [facility] MCHC 31.8 31.5 - 35.7 g/dL 04/06/2025 5:04 AM [facility] RDW 12.8 12.3 - 15.4 % 04/06/2025 5:04 AM [facility] RDW-SD 40.0 37.0 - 54.0 fl 04/06/2025 5:04 AM [facility] MPV 11.7 6.0 - 12.0 fL 04/06/2025 5:04 AM [facility] Platelets 115(L) 140 - 450 10*3/mm3 04/06/2025 5:04 AM [facility] Neutrophil % 65.3 42.7 - 76.0 % 04/06/2025 5:04 AM [facility] Lymphocyte % 20.5 19.6 - 45.3 % 04/06/2025 5:04 AM [facility] Monocyte % 11.8 5.0 - 12.0 % 04/06/2025 5:04 AM [facility] Eosinophil % 1.8 0.3 - 6.2 % 04/06/2025 5:04 AM [facility] Basophil % 0.3 0.0 - 1.5 % 04/06/2025 5:04 AM [facility] Immature Grans % 0.3 0.0 - 0.5 % 04/06/2025 5:04 AM [facility] Neutrophils, Absolute 7.09(H) 1.70 - 7.00 10*3/mm3 04/06/2025 5:04 AM [facility] Lymphocytes, Absolute 2.23 0.70 - 3.10 10*3/mm3 04/06/2025 5:04 AM [facility] Monocytes, Absolute 1.28(H) 0.10 - [...] Organization Address City/[facility]/ZIP Co de Phone Number [facility]
[address] [place] [address], [place] [phone] * Heparin Anti-Xa (04/05/2025 8:43 PM EDT) [facility] Heparin Anti-Xa (UFH) 0.38 0.30 - 0.70 IU/ml 04/05/2025 9:09 PM EDT [facility] Blood Venipuncture / Unknown 04/05/2025 8:43 PM EDT 04/05/2025 8:55 PM EDT us Cherri Beatty [facility] LAB BLOOD ORDERABLES Final Res ult Performing Organization Address City/[facility]/ZIP Co de Phone Number [facility]
[address] [place] [address], [place] [phone] * CK (04/05/2025 12:15 PM EDT) Pathologist [facility] Creatine Kinase 140 20 - 200 U/L 04/05/2025 1:31 PM EDT [facility] Blood Venipuncture / Unknown 04/05/2025 12:15 PM EDT 04/05/2025 1:03 PM EDT Carlton Mead MD LAB BLOOD ORDERABLES Final R esult Performing Organization Address City/[facility]/ZIP Co de Phone Number [facility]
[address] [place] [address], * (ABNORMAL) Heparin Anti-Xa (04/05/2025 12:15 PM EDT) Heparin Anti-Xa (UFH) 0.17(L) 0.30 - 0.70 IU/ml 04/05/2025 1:21 PM EDT [facility] Blood Venipuncture / Unknown 04/05/2025 12:15 PM EDT 04/05/2025 1:04 PM EDT Una Perla PharmD LAB BLOOD ORDERABLES Final R esult [facility]
[address] [place] [address], * (ABNORMAL) aPTT (04/05/2025 3:54 AM EDT) [...] Final R esult [facility]
[address] [place] [address], * Heparin Anti-Xa (04/05/2025 3:54 AM EDT) Pathologist [facility] Heparin Anti-Xa (UFH) 0.30 0.30 - 0.70 IU/ml 04/05/2025 4:32 AM EDT [facility] Blood Venipuncture / Unknown 04/05/2025 3:54 AM EDT 04/05/2025 4:15 AM EDT Una DextrD LAB BLOOD ORDERABLES Final R esult Performing Organization Address City/[facility]/ZIP Co de Phone Number [facility]
[address] [place] [address], * (ABNORMAL) CBC Auto Differential (04/05/2025 3:54 [...] 31.5 - 35.7 g/dL 04/05/2025 4:20 AM [facility] RDW 12.9 12.3 - 15.4 % 04/05/2025 4:20 AM [facility] RDW-SD 39.7 37.0 - 54.0 fl 04/05/2025 4:20 AM [facility] MPV 10.2 6.0 - 12.0 fL 04/05/2025 4:20 AM [facility] Platelets 160 140 - 450 10*3/mm3 04/05/2025 4:20 AM [facility] Neutrophil % 73.5 42.7 - 76.0 % 04/05/2025 4:20 AM [facility] Lymphocyte % 14.0(L) 19.6 - 45.3 % 04/05/2025 4:20 AM [facility] Monocyte % 11.0 5.0 - 12.0 % 04/05/2025 4:20 AM [facility] Eosinophil % 0.8 0.3 - 6.2 % 04/05/2025 4:20 AM [facility] Basophil % 0.3 0.0 - 1.5 % 04/05/2025 4:20 AM [facility] Immature Grans % 0.4 0.0 - 0.5 % 04/05/2025 4:20 AM [facility] Neutrophils, Absolute 8.23(H) 1.70 - 7.00 10*3/mm3 04/05/2025 4:20 AM [facility] Lymphocytes, Absolute 1.56 0.70 - 3.10 10*3/mm3 04/05/2025 4:20 AM [facility] Monocytes, Absolute 1.23(H) 0.10 - 0.90 10*3/mm3 04/05/2025 4:20 AM [facility] Eosinophils, Absolute 0.09 0.00 - 0.40 10*3/mm3 04/05/2025 4:20 AM [facility] Basophils, Absolute 0.03 0.00 - [...] Final R esult [facility]
[address] [place] [address], * (ABNORMAL) Basic Metabolic Panel (04/05/2025 3:54 [...] 3:54 AM EDT 04/05/2025 4:15 AM EDT [facility] - 04/05/2025 4:40 AM [...] Re sult [facility]
[address] [place] [address], * (ABNORMAL) aPTT (04/05/2025 12:18 AM EDT) PTT 33.6(L) 60.0 - 90.0 seconds 04/05/2025 12:53 AM EDT [facility] Blood Venipuncture / Unknown 04/05/2025 12:18 AM EDT 04/05/2025 12:37 AM EDT [facility] - 04/05/2025 12:53 AM EDT PTT = The equivalent PTT values for the therapeutic range of heparin levels at 0.3 to 0.5 U/ml are 60 to 70 seconds. [email or web address] [facility] LAB BLOOD ORDERABLES Final R esult Performing Organization Address City/[facility]/ZIP Co de Phone Number [facility]
[address] [place] [address], * (ABNORMAL) Protime-INR (04/05/2025 12:18 AM EDT) Protime 15.9(H) 12.2 - 15.3 Seconds 04/05/2025 12:53 AM EDT [facility] INR 1.19(H) 0.89 - 1.12 04/05/2025 12:53 AM EDT [facility] Blood Venipuncture / Unknown 04/05/2025 12:18 AM EDT 04/05/2025 12:37 AM EDT [email or web address] [facility] LAB BLOOD ORDERABLES Final R esult Performing Organization Address [facility] Co de Phone Number [facility]
[address] [place] [address], * Heparin Anti-Xa (04/05/2025 12:18 AM EDT) Pathologist [facility] Heparin Anti-Xa (UFH) 0.39 0.30 - 0.70 IU/ml 04/05/2025 12:54 AM EDT [facility] Blood Venipuncture / Unknown 04/05/2025 12:18 AM EDT 04/05/2025 12:37 AM EDT [email or web address] [facility] LAB BLOOD ORDERABLES Final R esult Performing Organization Address City/[facility]/ZIP Co de Phone Number [facility]
[address] [place] [address], * MRI Tibia Fibula Right With & [...] MD 04/04/2025 11:00 PM EDT Workstation ID: [id number] Narrative 04/04/2025 11:00 PM EDT MRI TIBIA [...] MD 04/04/2025 11:00 PM EDT Workstation ID: [id number] Leonora Shepherd MD IMG MRI ORDERABLES Final Resu lt * POC Creatinine (04/04/2025 2:49 PM EDT) Creatinine 1.10 0.60 - 1.30 mg/dL 04/07/2025 7:14 PM EDT [facility] Comment:Serial Number: [id number] Venous Blood 04/04/2025 2:49 PM EDT 04/07/2025 7:14 PM EDT Jason Álvarez DO POINT OF CARE TEST ORDERABLES Fi nal Result [facility]
[address] [place] [address], * (ABNORMAL) CBC Auto Differential (04/04/2025 2:47 PM EDT) [facility] WBC 12.72(H) 3.40 - 10.80 10*3/mm3 [...] Fin al Result [facility]
[address] [place] [address], * (ABNORMAL) C-reactive Protein (04/04/2025 2:47 PM EDT) C-Reactive Protein 8.57(H) 0.00 - 0.50 mg/dL 04/04/2025 3:26 PM EDT [facility] Blood Venipuncture / Unknown 04/04/2025 2:47 PM EDT 04/04/2025 2:52 PM EDT [facility] Fin al Result Performing Organization Address City/[facility]/ZIP Co de Phone Number [facility]
[address] [place] [address], * (ABNORMAL) Sedimentation Rate (04/04/2025 2:47 PM EDT) Pathologist [facility] Sed Rate 51(H) 0 - 15 mm/hr 04/04/2025 3:06 PM EDT [facility] Blood Venipuncture / Unknown 04/04/2025 2:47 PM EDT 04/04/2025 2:52 PM EDT [facility]OD ORDERABLES Fin al Result Performing Organization Address City/[facility] Co de Phone Number [facility]
[address] [place] [address], * Comprehensive Metabolic Panel (04/04/2025 2:47 PM EDT) Pathologist [facility] Glucose 90 65 - 99 [...] 1 - 41 U/L 04/04/2025 3:26 PM [facility] AST (SGOT) 25 1 - 40 U/L 04/04/2025 3:26 PM T [facility] Alkaline Phosphatase 106 39 - 117 U/L 04/04/2025 3:26 PM T [facility] Total Bilirubin 1.0 0.0 - 1.2 mg/dL 04/04/2025 3:26 PM T [facility] Globulin 3.2 gm/dL 04/04/2025 3:26 PM [facility] Comment:Calculated Result A/G Ratio 1.3 g/dL 04/04/2025 3:26 PM [facility] BUN/Creatinine Ratio 19.5 7.0 - 25.0 04/04/2025 3:26 PM [facility] Anion Gap 10.7 5.0 - 15.0 mmol/L 04/04/2025 3:26 PM [facility] eGFR 102.5 >60.0 mL/min/1.7 3 04/04/2025 3:26 PM [facility] Blood Venipuncture / Unknown 04/04/2025 2:47 PM EDT 04/04/2025 2:52 PM EDT [facility] - 04/04/2025 3:26 [...] Fin al Result [facility]
[address] [place] [address], documented in this encounter Visit Diagnoses Diagnosis [...] BPA Driven Protocol Open Order & Select [facility] Electrolyte Replacement Protocol Algorithm to View Details [...] BPA Driven Protocol Open Order & Select [facility] Electrolyte Replacement Protocol Algorithm to View Details [...] Salazar, KELL)[phone] (Given - Provider: Anahy Marcelino, SECURITY FIELD SUPERVISOR)[id number] (Canceled Entry - Provider: Anahy Marcelino SECURITY FIELD SUPERVISOR - Comment: previously given) 0837 (Given - [...] Continuous Medication Order 04/09/2025 04/10/2025 04/11/2025 heparin 65145 units/250 mL (100 units/mL) in 0.45 % [...] BPA Driven Protocol Open Order & Select [facility] Electrolyte Replacement Protocol Algorithm to View Details [...] documented as of this encounter Care Teams Healthcare Management Consultant Relationship Specialty Start Date End Date Provider, [id number] [address] PCP - General 05/09/23 documented as of this encounter
--- OUTSIDE RECORDS SUMMARY | 2025-04-07 20:36 | XMS_ITS | Encounter Summary ---
Author Organization [facility] Address [address] [place] [address] Care Team Providers Care Final Assembler Boat Name Role Phone Provider, No Known Primary Care Provider Unavail able Reason for Visit * Auth/Cert Specialty Diagnoses / Procedures Referred By Bulmaro muniz Referred To Contact Diagnoses Right BKA infection Referral ID Status Reason Start Date Expiration Date Visits Re quested Visits Authorized [id number] 1 1 Encounter Details Date Type Department Care Team (Late st Contact Info) Description 04/07/2025 8:36 PM EDT Anesthesia Event [facility] OR [address] [place] [address] Luci Alonso DO [address] [place] [address] Anesthesia Record Procedure Summary Procedure Name Responsible [...] Recorded In the past 12 months has [facility], gas, oil, or water [employer] threatened to shut off services in your [...] or training? Not on file Preferred Language Mauritian 04/07/2025 Sex and Gender Information Value Date [...] PACU on O2NC, breathing comfortably. Report to SKINNER PELTS at bedside. VSS. * Anesthesia Procedure Notes [...] Musculoskeletal Abdominal Substance History - negative use CREATIVE RECRUITER Other ROS/Med Hx Other: Eliquis 04/04/25 Hgb [...] been obtained with: patient. Plan discussed with WHARF TENDER. CODE STATUS: Code Status (Patient has no [...] documented as of this encounter Care Teams Final Assembler Boat Relationship Specialty Start Date End Date Provider, No Known [facility] [place] [address] PCP - General 05/09/23 documented as of this encounter
--- OUTSIDE RECORDS SUMMARY | 2025-04-08 14:45 | XMS_ITS | Encounter Summary ---
[facility] Address [address] [place] [address] Care Team Providers Care Shoe Lay Out Planner Name Role Phone Provider, No Known Primary Care Provider Unavail able Reason for Visit * Reason Comments Leg Swelling * Auth/Cert Specialty Diagnoses / Procedures Referred By Contac t Referred To Contact Diagnoses Right BKA infection Referral ID Status Reason Start Date Expiration Date Visits Re quested Visits Authorized [id number] 1 1 Encounter Details Date Type Department Care Team (Late st Contact Info) Description 04/08/2025 2:45 PM EDT - 04/08/2025 4:04 PM EDT Surgery [facility] [address] [place] [address] Sushil Dean Jr., MD [address] [place] [address] [address] [id number] LEG DEBRIDEMENT AND IRRIGATION Social History Tobacco Use Types Packs/Day Years Used Date Smoking Tobacco: Never Smokeless Tobacco: Never Tobacco Cessation:Counseling Given: Not Answered Alcohol Use Standard Drinks/Week Comments Not Currently 0 (1 standard drink = 0.6 oz pur e alcohol) [facility] Utilities Answer Date Recorded In the past 12 months has [employer] electric, gas, oil, or water company threatened [...] or training? Not on file Preferred Language East Timorese 04/07/2025 Sex and Gender Information Value Date [...] 2:25 PM EDT Cherri Grimm RN * [place] Suicide Severity Rating Scale (Screener/Recent Self-Report) Question [...] from the original note were not included. [facility] Medicine Services DISCHARGE SUMMARY Patient [...] Date/Time Wound Culture - Swab, Leg, Right [[id number]] (Abnormal) (Susceptibility) Collected: 04/07/252106 Lab Status: Final [...] Units Date/Time FL C Arm During Surgery [[id number]] Resulted: 04/07/252137 Updated: 04/07/252137 Narrative: This procedure was auto-finalized with no dictation required. MRI Tibia Fibula Right With & Without Contrast [[id number]] Collected: 04/07/25 0938 Updated: 04/07/25 1001 Narrative: [...] Buenrostro 04/07/2025 9:58 AM EDT Workstation ID: [id number] MRI Tibia Fibula Right With & Without Contrast [[id number]] Collected: 04/04/252256 Updated: 04/04/252302 Narrative: MRI TIBIA [...] represent a small area of phlegmonous change ([id number] image 10) measuring approximately 1.6 cm which [...] MD 04/04/2025 11:00 PM EDT Workstation ID: [id number] Pending Labs Order Current Status Fungus Culture [...] Male) Date of 1980 Social Security Number [id number] [place] [address] [place] [address] Jew Unknown Marital Status Unknown Admission Date 04/04/2025 Admission Type Emergency Admitting Provider Jadyn Richardson DO Attending Provider Jadyn Richardson DO Department, Room/Bed [facility] 5G, S565/1 Discharge Date Discharge Disposition Discharge [...] [id number] Payor Plan Address Payor Plan Phone Number Payor Plan Fax Number Effective Dates [employer] [address] [address] 08/10/2023 - None Entered [facility] [address] Subscriber Name Subscriber Date Member ID WON DENNIS 1980 [id number] Emergency Contacts 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, [place] [place] [address] : 1980 SSN: [id number] Sex: M PCP: Provider, No Known Emergency Contact Information Name Relation Home Work Mobile Avril Dennis Spouse [phone] Other Contacts Name Relation Home Work Mobile Robert Hackett Relative [phone] INSURANCE PAYOR PLAN GROUP # SUBSCRIBER ID Primary: Secondary: MEDICARE [employer] [id number] Admitting Diagnosis: Right BKA infection [T87.43] Order Date: Apr 09, 2025 Case Management Program Evaluation Consultant Consult (Order ID: [id number]) Diagnosis: Priority: Routine Expected Date: Expiration Date: Interval: Once Count: Comments: Outpatient orders: 1. Outpatient intravenous antibiotic therapy: Daptomycin 800 mg IV daily to be supplied by [facility] 2. Home health to perform [...] INFECTIOUS DISEASE Progress Note Won Dennis 1980 [id number] Date of Consult: 04/10/2025 Admission Date: 04/04/2025 [...] which prompted him to seek treatment at [facility]. He is known to Dr. [...] Jr., MD, 20 mg at 04/09/25906 heparin 23300 units/250 mL (100 units/mL) in 0.45 % [...] vancomycin 2750 mg/500 mL 0.9% NS IVPB ([facility]) Ordering Provider: Mario Crowley, DO 20 mg/kg [...] Units Date/Time FL C Arm During Surgery [[id number]] Resulted: 04/07/252137 Updated: 04/07/252137 Narrative: This procedure was auto-finalized with no dictation required. MRI Tibia Fibula Right With & Without Contrast [[id number]] Collected: 04/07/2538 Updated: 04/07/25 1001 Narrative: MRI [...] Buenrostro 04/07/2025 9:58 AM EDT Workstation ID: [id number] Impression: Recurrent Right BKA stump abscess/cellulitis- this [...] discussed his disposition with the pharmacist at [facility] today. I will sign off Outpatient orders: 1. Outpatient intravenous antibiotic therapy: Daptomycin 800 mg IV daily to be supplied by [facility] 2. Home health to perform [...] Creation Time: 04/10/251323 Signed Expand All [facility] Medicine Services PROGRESS NOTE Patient Name: [...] Date/Time Wound Culture - Swab, Leg, Right [[id number]] (Abnormal) (Susceptibility) Collected: 04/07/252106 Lab Status: Final [...] Row Name 04/06/25 1143 Sit-Stand Transfer Sit-Stand [place] (Transfers) modified independence - Comment, (Sit-Stand Transfer) Pt stood from recliner. Not holding onto walker, pt able to pull his pants up while balancing on his one leg. -LM Row Name 04/06/25 1143 Gait/Stairs (Locomotion) [place] Level (Gait) modified independence - Distance in [...] bilateral lower extremity ROM WFL -LM [facility] Name 04/06/25 1145 Strength Comprehensive (MMT) General Manual Muscle Testing (MMT) Assessment no strength deficits identified BLEs -LM [facility] Name 04/06/25 1145 Balance Balance Assessment [...] Goals/Plan No documentation. Clinical Impression [facility] 04/06/25 1146 Pain Pretreatment Pain Rating 0/10 - no pain -LM Posttreatment Pain Rating 0/10 - no pain -LM [facility] 04/06/25 1146 Plan of Care Review Plan of Care Reviewed With patient -LM Outcome Evaluation PT evaluation completed. Pt demonstrated independence with all mobility including ambulating 100 feet using rw - no unsteadiness noted. Pt reports he feels at baseline and doesn't think he needs skilled PT while here. Recommend home at d/c. PT signing off. -LM [facility] Name 04/06/25 1146 Therapy Assessment/Plan (PT) Criteria for Skilled Interventions Met (PT) no;no problems identified which require skilled intervention -LM Therapy Frequency (PT) evaluation only -LM Predicted Duration of Therapy Intervention (PT) Eval Only -LM [facility] Name 04/06/25 1146 Vital Signs Pretreatment Heart Rate (beats/min) 86 -LM Posttreatment Heart Rate (beats/min) 96 -LM Pre SpO2 (%) 95 -LM O2 Delivery Pre Treatment room air -LM Post SpO2 (%) 96 -LM O2 Delivery Post Treatment room air -LM Pre Patient Position Sitting -LM Post Patient Position Sitting -LM [facility] Name 04/06/25 1146 Positioning and Restraints [...] Nurse Physical Therapy Education Title: PT OT ANESTHESIOLOGY PHYSICIAN ASSISTANT Therapies (Done) Topic: Physical Therapy (Done) [...] Description Service Date Service Provider Modifiers Qty [id number] PT EVAL LOW COMPLEXITY 3 04/06/2025 Susan [...] mg Daily 04/05/2025 -- Route: Oral heparin 70890 units/250 mL (100 units/mL) in 0.45 % [...] 22 [facility] [address], [address] [facility], [address] Please schedule at [phone] VONDA Garcia 04/11/25 08:32 EDT Cosigned by Sushil Dean Jr., MD at 04/19/2025 10:33 AM EDT Associated attestation - Sushil Dean Jr., MD - 04/19/2025 10:33 AM EDT I have reviewed this documentation and agree. * Rosario Hill APRN - 04/10/2025 1:24 PM EDT Images from the original note were not included. [facility] Medicine Services PROGRESS NOTE Patient [...] Date/Time Wound Culture - Swab, Leg, Right [[id number]] (Abnormal) (Susceptibility) Collected: 04/07/252106 Lab Status: Final [...] mg Daily 04/05/2025 -- Route: Oral heparin 94227 units/250 mL (100 units/mL) in 0.45 % [...] 22 [facility] [address] [facility], [address] [facility], [address] Please schedule at [phone] VONDA Garcia 04/10/25 09:01 EDT Cosigned by Sushil Dean Jr., MD at 04/19/2025 10:33 AM EDT Associated attestation - Sushil Dean Jr., MD - 04/19/2025 10:33 AM EDT I have reviewed this documentation and agree. * Carlton Mead MD - 04/10/2025 7:38 AM EDT Images from the original note were not included. INFECTIOUS DISEASE Progress Note Won Dennis 1980 [id number] Date of Consult: 04/10/2025 Admission Date: 04/04/2025 [...] which prompted him to seek treatment at [facility]. He is known to Dr. [...] IRRIGATION; Surgeon: Sushil Dean Jr., MD; Location: [facility]; Service: Orthopedics; Laterality: Right; PLACEMENT OF WOUND VAC Right 04/07/2025 Procedure: WOUND VACUUM ASSISTED CLOSURE; Surgeon: Sushil Dean Jr., MD; Location: [facility]; Service: Orthopedics; Laterality: Right; WOUND CLOSURE [...] Sushil eDan Jr., MD, 2 puff at 04/09/251943 Calcium [...] Jr., MD, 20 mg at 04/09/25906 heparin 84541 units/250 mL (100 units/mL) in 0.45 % [...] Units Date/Time FL C Arm During Surgery [[id number]] Resulted: 04/07/252137 Updated: 04/07/252137 Narrative: This procedure was auto-finalized with no dictation required. MRI Tibia Fibula Right With & Without Contrast [[id number]] Collected: 04/07/25937 Updated: 04/07/25 100 Narrative: MRI [...] Buenrostro 04/07/2025 9:58 AM EDT Workstation ID: [id number] Impression: Recurrent Right BKA stump abscess/cellulitis- this [...] discussed his disposition with the pharmacist at [facility] today. I will sign off Outpatient orders: 1. Outpatient intravenous antibiotic therapy: Daptomycin 800 mg IV daily to be supplied by [facility] 2. Home health to perform [...] 04/10/2025 07:38 EDT * Larisa Hamilton [facility] - 04/10/2025 7:17 AM [...] from the original note were not included. [facility] Medicine Services PROGRESS NOTE Patient [...] Date/Time Wound Culture - Swab, Leg, Right [[id number]] (Abnormal) Collected: 04/07/252106 Lab Status: Preliminary result [...] Álvarez DO 04/09/25 * Larisa Hamilton [facility] - 04/09/2025 11:36 AM [...] -- Admin Instructions: Open Order & Select [facility] Electrolyte Replacement Protocol Algorithm to View Details [...] mg Daily 04/05/2025 -- Route: Oral heparin 54827 units/250 mL (100 units/mL) in 0.45 % [...] -- Admin Instructions: Open Order & [facility] Electrolyte Replacement Protocol Algorithm to View Details [...] radiographs [facility] [address] [facility], [address] [facility], [address] Please schedule at [phone] VONDA Garcia 04/09/25 09:18 EDT Cosigned by Sushil Dean Jr., MD at 04/19/2025 10:33 AM EDT Associated attestation - Sushil Dean Jr., MD - 04/19/2025 10:33 AM EDT I have reviewed this documentation and agree. * Carlton Mead MD - 04/09/2025 8:25 AM EDT Images from the original note were not included. INFECTIOUS DISEASE Progress Note Won Dennis 1980 [id number] Date of Consult: 04/09/2025 Admission Date: 04/04/2025 [...] which prompted him to seek treatment at [facility]. He is known to Dr. [...] IRRIGATION; Surgeon: Sushil Dean Jr., MD; Location: [facility]; Service: Orthopedics; Laterality: Right; PLACEMENT OF WOUND VAC Right 04/07/2025 Procedure: WOUND VACUUM ASSISTED CLOSURE; Surgeon: Sushil Dean Jr., MD; Location: [facility] OR; Service: Orthopedics; Laterality: Right; [...] MD, 20 mg at 04/08/25 0800 heparin 92774 units/250 mL (100 units/mL) in 0.45 % [...] Units Date/Time FL C Arm During Surgery [[id number]] Resulted: 04/07/252137 Updated: 04/07/252137 Narrative: This procedure was auto-finalized with no dictation required. MRI Tibia Fibula Right With & Without Contrast [[id number]] Collected: 04/07/25 0938 Updated: 04/07/25 1001 Narrative: [...] Chitra 04/07/2025 9:58 AM EDT Workstation ID: [id number] Impression: Recurrent Right BKA stump abscess/cellulitis- this [...] mg IV daily to be supplied by [facility] 2. Home health to perform [...] from the original note were not included. [facility] Medicine Services PROGRESS NOTE Patient [...] Buenrostro 04/07/2025 9:58 AM EDT Workstation ID: [id number] I have personally reviewed the therapy plans: [...] Álvarez, DO 04/08/25 * Hamilton, Larisa, [facility] - 04/08/2025 11:48 AM [...] -- Admin Instructions: Open Order & [facility] Electrolyte Replacement Protocol Algorithm to View Details [...] mg Daily 04/05/2025 -- Route: Oral heparin 37041 units/250 mL (100 units/mL) in 0.45 % [...] INFECTIOUS DISEASE Progress Note Won Dennis 1980 [id number] Date of Consult: 04/08/2025 Admission Date: 04/04/2025 [...] which prompted him to seek treatment at [facility]. He is known to Dr. [...] IRRIGATION; Surgeon: Sushil Dean Jr., MD; Location: [facility] OR; Service: Orthopedics; Laterality: Right; PLACEMENT OF WOUND VAC Right 04/07/2025 Procedure: WOUND VACUUM ASSISTED CLOSURE; Surgeon: Sushil Dean Jr., MD; Location: [facility] OR; Service: Orthopedics; Laterality: Right; [...] Oral, Q6H PRN, 500 mg at 04/06/25 5424 OR acetaminophen (TYLENOL) 160 MG/5ML oral solution [...] Jr., MD, 20 mg at 04/07/25950 heparin 14487 units/250 mL (100 units/mL) in 0.45 % [...] infusion 40 mL, 40 mL, Intravenous, PRN, Sushli Dean Jr., MD tamsulosin (FLOMAX) 24 hr [...] vancomycin 2750 mg/500 mL 0.9% NS IVPB ([facility]) Ordering Provider: Mario Crowley, DO 20 mg/kg [...] Units Date/Time FL C Arm During Surgery [[id number]] Resulted: 04/07/252137 Updated: 04/07/252137 Narrative: This procedure was auto-finalized with no dictation required. MRI Tibia Fibula Right With & Without Contrast [[id number]] Collected: 04/07/25 0938 Updated: 04/07/25 1001 Narrative: [...] Buenrostro 04/07/2025 9:58 AM EDT Workstation ID: [id number] Impression: Right BKA stump cellulitis- s/p BKA with multiple surgical interventions with Known MRSA 05/09/2025. (Treated by ID in [place] Dr. Harris). Dr. Torres treated him with [...] from the original note were not included. [facility] Medicine Services PROGRESS NOTE Patient [...] Buenrostro 04/07/2025 9:58 AM EDT Workstation ID: [id number] I have personally reviewed the therapy plans: [...] DO Preeti 04/07/25 * Larisa Hamilton, [facility] - 04/07/2025 11:56 AM [...] INFECTIOUS DISEASE Progress Note Won Dennis 1980 [id number] Date of Consult: 04/07/2025 Admission Date: 04/04/2025 [...] which prompted him to seek treatment at [facility]. He is known to Dr. [...] MD, 20 mg at 04/06/25 0900 heparin 39856 units/250 mL (100 units/mL) in 0.45 % NaCl infusion, 18 Units/kg/hr, Intravenous, Titrated, Cherri Beatty, [facility], Last Rate: 24.1 mL/hr [...] With & Without Contrast - In process [[id number]] Resulted: 04/07/25828 Updated: 04/07/25828 This result has not been signed. Information might be incomplete. 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 (Treated by ID in [place] Dr. Harris). Dr. Torres treated him with [...] -- Admin Instructions: Open Order & [facility] Electrolyte Replacement Protocol Algorithm to View Details [...] mg Daily 04/05/2025 -- Route: Oral heparin 03787 units/250 mL (100 units/mL) in 0.45 % [...] -- Admin Instructions: Open Order & [facility] Electrolyte Replacement Protocol Algorithm to View Details [...] 04/07/25 06:07 EDT * Cherri Beatty [facility] - 04/06/2025 1:47 PM [...] from the original note were not included. [facility] Medicine Services PROGRESS NOTE Patient [...] MD 04/04/2025 11:00 PM EDT Workstation ID: [id number] I have personally reviewed the therapy plans: [...] mg Daily 04/05/2025 -- Route: Oral heparin 76429 units/250 mL (100 units/mL) in 0.45 % [...] -- Admin Instructions: Open Order & [facility] Electrolyte Replacement Protocol Algorithm to View Details [...] -- Admin Instructions: Open Order & [facility] Electrolyte Replacement Protocol Algorithm to View Details [...] INFECTIOUS DISEASE follow up. Won Dennis 1980 [id number] Date of Consult: 04/06/2025 Admission Date: 04/04/2025 [...] which prompted him to seek treatment at [facility]. He is known to Dr. [...] MD, 20 mg at 04/06/25 0900 heparin 46467 units/250 mL (100 units/mL) in 0.45 % NaCl infusion, 18 Units/kg/hr, Intravenous, Titrated, Cherri Beatty [facility], Last Rate: 24.1 mL/hr [...] Tibia Fibula Right With & Without Contrast [[id number]] Collected: 04/04/252256 Updated: 04/04/252302 Narrative: MRI TIBIA [...] represent a small area of phlegmonous change (zplujt79 image 10) measuring approximately 1.6 cm which [...] MD 04/04/2025 11:00 PM EDT Workstation ID: [id number] Impression: Right BKA stump cellulitis- s/p BKA with multiple surgical interventions with Known MRSA 05/09/2025. (Treated by ID in [place] Dr. Harris). Dr. Torres treated him with [...] from the original note were not included. [facility] Medicine Services PROGRESS NOTE Patient [...] MD 04/04/2025 11:00 PM EDT Workstation ID: [id number] I have personally reviewed the therapy plans: [...] from the original note were not included. [facility] Medicine Services HISTORY AND PHYSICAL [...] MD 04/04/2025 11:00 PM EDT Workstation ID: [id number] Assessment & Plan Assessment & Plan Won [...] 4FR PICC placed by Rhoda Bonner RN [facility], tip verified by 3CG see LDA. * Sushil Dean Jr., MD - 04/05/2025 8:07 AM EDTAssociated Order(s): IP CONSULT TO ORTHOPEDIC SURGERY [facility], [facility] [address] [address] Orthopedic Consult Patient: Won Dennis Date of Admission: 04/04/2025 4:10 PM Date of : 1980 Attending Physician: Jason Álvarez DO Consulting Physician: Sushil Dean Jr, MD Chief Complaint: 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 male admitted to [facility] with Right BKA infection [T87.43]. [...] was evaluated in the emergency department in [place], was discharged with instructions for follow-up. He [...] Morning Lactobacillus-Inulin ([facility]) capsule Take 200 mg by mouth [...] MD 04/04/2025 11:00 PM EDT Workstation ID: [id number] Assessment: Right BKA infection 44-year-old male with [...] DISEASE CONSULT/INITIAL HOSPITAL VISIT Won Dennis 1980 [id number] Date of Consult: 04/05/2025 Admission Date: 04/04/2025 [...] which prompted him to seek treatment at [facility]. He is known to Dr. [...] Leonora Shepherd MD, 40 mg at 04/04/25 8874 sennosides-docusate (PERICOLACE) 8.6-50 MG per tablet 2 [...] MD, 20 mg at 04/05/25 09 heparin 78021 units/250 mL (100 units/mL) in 0.45 % [...] Leonora Shepherd MD, 10 mg at 04/04/25 7313 Pharmacy to Dose Heparin, , Not Applicable, [...] Tibia Fibula Right With & Without Contrast [[id number]] Collected: 04/04/252256 Updated: 04/04/252302 Narrative: MRI TIBIA [...] represent a small area of phlegmonous change (khbhud55 image 10) measuring approximately 1.6 cm which [...] MD 04/04/2025 11:00 PM EDT Workstation ID: [id number] Impression: Right BKA stump cellulitis- s/p BKA with multiple surgical interventions with Known MRSA 05/09/2025. (Treated by ID in [place] Dr. Harris). Dr. Torres treated him with [...] - 04/08/2025 3:51 PM EDT [facility] OPERATIVE REPORT PATIENT NAME: Won Dennis DATE OF : 1980 PREOP DIAGNOSIS: Right Right below-knee amputation infection POSTOP DIAGNOSIS: Same. PROCEDURE: Right Right 75994: Secondary closure below-knee amputation SURGEON: Sushil Dean MD OPERATIVE TEAM: Brokerage Office Manager: Susi Grullon RN Scrub Person: Mary Paredes Scrub Person Extra: Hortencia Toribio Other: Katt Gotti RN; Charis Neville RN ANESTHETIST: Anesthesiologist: Ulises Hoffman MD ORACLE EBS DEVELOPER: Stan Casillas CRNA Student Nurse Staffing And Scheduling Coordinator: Karol Albert SRNA ANESTHESIA: Choice ESTIMATED [...] CULTURE (Canceled) Sushil Dean Jr., MD 04/08/25 3563 Description: RIGHT LEG DEEP WOUND FOR CULTURE [...] PM EDT [facility], [place] [address] OPERATIVE REPORT PATIENT NAME: Won Dennis DATE OF : 1980 PREOP DIAGNOSIS: Right Right below knee amputation stump infection POSTOP DIAGNOSIS: Same. PROCEDURE: Right Right 71842: Incision and drainage of surgical site infection 71476: Debridement of skin, subcutaneous tissue, muscle 25668: Wound vacuum-assisted closure SURGEON: Sushil Dean MD OPERATIVE TEAM: Brokerage Office Manager: Anum Sanchez RN Scrub Person: Hortencia Toribio; Gerald Ivey CHURN DRILLER: Anesthesiologist: Luci Alonso DO ANESTHESIA: General ESTIMATED [...] ago swellling of the area. seen at [facility] yesterday for CT and US, [...] this chart in the absence of a photographic spotter. No orders to display RADIOLOGY: [x] Radiologist's [...] discharging home with outpatient infusion at [facility]. He has an appointment with [facility] at 8:00 am tomorrow. They will do PICC line dressing changes. DEBRA has spoke with Dena at [facility] today multiple times to get [...] to get IV ABX at home with [facility]; however, Medicaid lapsed on 04/08. DEBRA was unaware until this morning that Medicaid has lapsed. Patient explained that he has Medicare A and B. CM spoke with KELLEE and given themhis Medicare number [id number], she sent it to Admission. DEBRA spoke with Kerri, with [facility], and explained that he had [...] changes and lab work. DEBRA called Dena [facility] Outpatient infusion center they can accept patient and start him. He is known for their facility. The Facility will need to run it through his insurance first. CM faxed the orders over to [facility] at [phone]. CM will follow up with them tomorrow at [facility] to make sure they received the [...] 04/09/2025 2:51 PM EDT Continued Stay Note [facility] Patient Name: Won Dennis Today's Date: 04/09/2025 Admit Date: 04/04/2025 Plan: Home Discharge Plan Row Name 04/09/25 1311 Plan Plan Home Patient/Family in Agreement with Plan yes Plan Comments CM spoke with patient at bedside today. Wheelchair from [employer] is at bedside. Patient getting PICC line [...] note were not included. Discharge Planning Assessment [facility] Patient Name: Won Dennis Today's Date: [...] with family Patient/Family Anticipated Services at Transition business case analystaccount relationship manager Anticipated family or friend will provide Discharge Needs Assessment Equipment Currently Used at Home glucometer;shower chair;pulse ox;bp cuff;prosthesis;crutches Equipment Needed After Discharge none Discharge Plan Row Name 04/07/25 1144 Plan Plan Home Patient/Family in Agreement with Plan yes Plan Comments CM spoke with patient at bedside today. Patient lives with and his 5 kids in [facility]. 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 He has walker, cane, shower chair, and crutches. He requested a wheelchair for home. CM will order wheelchair through [facility]. He is not current with home [...] General Information Arrived From hospital Preferred Language [place] Functional Status Row Name 04/07/25 1143 Functional [...] 10*3/mm3 04/11/2025 4:02 AM EDT [facility] RBC 4.70 4.14 - 5.80 10*6/mm3 04/11/2025 4:02 AM [facility] Hemoglobin 12.8(L) 13.0 - 17.7 g/dL 04/11/2025 4:02 AM [facility] Hematocrit 40.5 37.5 - 51.0 % 04/11/2025 4:02 AM [facility] MCV 86.2 79.0 - 97.0 fL 04/11/2025 4:02 AM [facility] MCH 27.2 26.6 - 33.0 pg 04/11/2025 4:02 AM [facility] MCHC 31.6 31.5 - 35.7 g/dL 04/11/2025 4:02 AM [facility] RDW 12.9 12.3 - 15.4 % 04/11/2025 4:02 AM [facility] RDW-SD 40.5 37.0 - 54.0 fl 04/11/2025 4:02 AM [facility] MPV 9.2 6.0 - 12.0 fL 04/11/2025 4:02 AM [facility] Platelets 267 140 - 450 10*3/mm3 04/11/2025 4:02 AM [facility] Neutrophil % 59.5 42.7 - 76.0 % 04/11/2025 4:02 AM [facility] Lymphocyte % 26.3 19.6 - 45.3 % 04/11/2025 4:02 AM [facility] Monocyte % 9.3 5.0 - 12.0 % 04/11/2025 4:02 AM [facility] Eosinophil % 4.1 0.3 - 6.2 % 04/11/2025 4:02 AM [facility] Basophil % 0.4 0.0 - 1.5 % 04/11[facility] Immature Grans % 0.4 0.0 - 0.5 % 04/11/2025 4:02 AM EDT [facility] Neutrophils, Absolute 4.69 1.70 - 7.00 10*3/mm3 04/11/2025 4:02 AM EDT [facility] Lymphocytes, Absolute 2.07 0.70 - 3.10 10*3/mm3 04/11/2025 4:02 AM EDT [facility] Monocytes, Absolute 0.73 0.10 - 0.90 10*3/mm3 04/11/2025 4:02 AM EDT [facility] Eosinophils, Absolute 0.32 0.00 - 0.40 10*3/mm3 04/11/2025 4:02 AM EDT [facility] Basophils, Absolute 0.03 0.00 - 0.20 10*3/mm3 04/11/2025 4:02 AM EDT [facility] Immature Grans, Absolute 0.03 0.00 - 0.05 10*3/mm3 04/11/2025 4:02 AM EDT [facility] nRBC 0.0 0.0 - 0.2 /100 WBC 04/11/2025 4:02 AM EDT [facility] Blood Venipuncture / Unknown 04/11/2025 3:40 AM EDT 04/11/2025 3:59 AM EDT us Sushil Dean Jr., MD LAB BLOOD ORDERABLES Fi nal Result [facility]
[address] [place] [address], * (ABNORMAL) Comprehensive Metabolic Panel (04/11/2025 3:40 AM EDT) Glucose 108(H) 65 - 99 mg/dL 04/11/2025 4:19 AM EDT [facility] BUN 12.5 6.0 - 20.0 mg/dL 04/11/2025 4:19 AM EDT [facility] Creatinine 0.68(L) 0.76 - 1.27 mg/dL 04/11/2025 4:19 AM [facility] Sodium 140 136 - 145 mmol/L 04/11/2025 4:19 AM [facility] Potassium 3.8 3.5 - 5.2 mmol/L 04/11/2025 4:19 AM [facility] Chloride 105 98 - 107 mmol/L 04/11/2025 4:19 AM [facility] CO2 28.2 22.0 - 29.0 mmol/L 04/11/2025 4:19 AM [facility] Calcium 8.2(L) 8.6 - 10.5 mg/dL 04/11/2025 4:19 AM [facility] Total Protein 6.1 6.0 - 8.5 g/dL 04/11/2025 4:19 AM [facility] Albumin 3.1(L) 3.5 - 5.2 g/dL 04/11/2025 4:19 AM [facility] ALT (SGPT) 52(H) 1 - 41 U/L 04/11/2025 4:19 AM [facility] AST (SGOT) 40 1 - 40 U/L 04/11/2025 4:19 AM [facility] Alkaline Phosphatase 99 39 - 117 U/L 04/11/2025 4:19 AM [facility] Total Bilirubin 0.2 0.0 - 1.2 mg/dL 04/11/2025 4:19 AM [facility] Globulin 3.0 gm/dL 04/11/2025 4:19 AM [facility] Comment:Calculated Result A/G Ratio 1.0 g/dL 04/11/2025 4:19 AM [facility] BUN/Creatinine Ratio 18.4 7.0 - 25.0 04/11/2025 4:19 AM [facility] Anion Gap 6.8 5.0 - 15.0 mmol/L 04/11/2025 4:19 AM [facility] eGFR 117.5 >60.0 mL/min/1.7 3 04/11/2025 4:19 AM EDT [facility] Blood Venipuncture / Unknown 04/11/2025 3:40 AM EDT 04/11/2025 3:56 AM EDT [facility] - 04/11/2025 4:19 AM [...] LAB BLOOD ORDERABLES Final Result [facility]
[address] [place] [address], * (ABNORMAL) CBC Auto Differential (04/10/2025 3:46 AM EDT) WBC 9.60 3.40 - 10.80 10*3/mm3 04/10/2025 3:56 AM EDT [facility] RBC 4.67 4.14 - 5.80 10*6/mm3 04/10/2025 3:56 AM EDT [facility] Hemoglobin 12.9(L) 13.0 - 17.7 g/dL 04/10/2025 3:56 AM EDT [facility] Hematocrit 40.1 37.5 - 51.0 % 04/10/2025 3:56 AM EDT [facility] MCV 85.9 79.0 - 97.0 fL 04/10/2025 3:56 AM EDT [facility] MCH 27.6 26.6 - 33.0 pg 04/10/2025 3:[facility] MCHC 32.2 31.5 - 35.7 g/dL 04/10/2025 3:56 AM EDT [facility] RDW 12.9 12.3 - 15.4 % 04/10/2025 3:56 [facility] RDW-SD 40.5 37.0 - 54.0 fl 04/10/2025 3:56 AM EDT [facility] MPV 9.5 6.0 - 12.0 fL 04/10/2025 3:56 AM EDT [facility] Platelets 227 140 - 450 10*3/mm3 04/10/2025 3:56 AM [facility] Neutrophil % 59.1 42.7 - 76.0 % 04/10/2025 3:56 AM [facility] Lymphocyte % 29.0 19.6 - 45.3 % 04/10/2025 3:56 [facility] Monocyte % 8.1 5.0 - 12.0 % 04/10/2025 3:56 AM [facility] Eosinophil % 3.2 0.3 - 6.2 % 04/10/2025 3:56 AM [facility] Basophil % 0.4 0.0 - 1.5 % 04/10/2025 3:56 AM [facility] Immature Grans % [...] 10*3/mm3 04/10/2025 3:56 AM EDT [facility] Basophils, Absolute 0.04 0.00 - 0.20 10*3/mm3 04/10/2025 3:56 AM EDT [facility] Immature Grans, Absolute 0.02 0.00 - 0.05 10*3/mm3 04/10/2025 3:56 AM EDT [facility] nRBC 0.0 0.0 - 0.2 /100 WBC 04/10/2025 3:56 AM EDT [facility] Blood Venipuncture / Unknown 04/10/2025 3:46 AM EDT 04/10/2025 3:53 AM EDT us Jason Álvarez DO LAB BLOOD ORDERABLES Final Resul t [facility]
[address] [place] [address], * (ABNORMAL) Basic Metabolic Panel (04/10/2025 3:46 AM EDT) Glucose 125(H) 65 - 99 mg/dL 04/10/2025 4:20 AM EDT [facility] BUN 15.9 6.0 - 20.0 mg/dL 04/10/2025 4:20 AM EDT [facility] Creatinine 0.77 0.76 - 1.27 mg/dL 04/10/2025 4:20 AM EDT [facility] Sodium 137 136 - 145 mmol/L 04/10/2025 4:20 AM EDT [facility] Potassium 3.9 3.5 - 5.2 mmol/L 04/10/2025 4:20 AM EDT [facility] Chloride 102 98 - 107 mmol/L 04/10/2025 4:20 AM EDT [facility] CO2 26.9 22.0 - 29.0 mmol/L 04/10/2025 4:20 AM EDT [facility] Calcium 7.9(L) 8.6 - 10.5 mg/dL 04/10/2025 4:20 AM EDT [facility] BUN/Creatinine Ratio 20.6 7.0 - 25.0 04/10/2025 4:20 AM EDT [facility] Anion Gap 8.1 5.0 - 15.0 mmol/L 04/10/2025 4:20 AM EDT [facility] eGFR 113.2 >60.0 mL/min/1.7 3 04/10/2025 4:20 AM EDT [facility] Blood Venipuncture / Unknown 04/10/2025 3:46 AM EDT 04/10/2025 3:52 AM EDT Narrative [facility] - 04/10/2025 4:20 AM EDT GFR [...] BLOOD ORDERABLES Final Resul t [facility]
[address] [place] [address], * Heparin Anti-Xa (04/10/2025 3:46 AM EDT) Heparin Anti-Xa (UFH) 0.35 0.30 - 0.70 IU/ml 04/10/2025 4:23 AM EDT [facility] Blood Venipuncture / Unknown 04/10/2025 3:46 AM EDT 04/10/2025 3:53 AM EDT Larisa Hamilton [facility] LAB BLOOD ORDERABLES Final R esult [facility]
[address] [place] [address], * Heparin Anti-Xa (04/09/2025 10:05 AM EDT) Pathologist [facility] Heparin Anti-Xa (UFH) 0.36 0.30 - 0.70 IU/ml 04/09/2025 11:12 AM EDT [facility] Blood Venipuncture / Unknown 04/09/2025 10:05 AM EDT 04/09/2025 10:47 AM EDT Larisa Hamilton [facility] LAB BLOOD ORDERABLES Final R esult [facility]
[address] [place] [address], * (ABNORMAL) CBC Auto Differential (04/09/2025 4:18 AM EDT) Pathologist [facility] WBC 11.00(H) 3.40 - 10.80 10*3/mm3 04/09/2025 4:50 AM EDT [facility] RBC 4.70 4.14 - 5.80 10*6/mm3 04/09/2025 4:50 AM EDT [facility] Hemoglobin 13.0 13.0 - 17.7 g/dL 04/09/2025 4:50 AM EDT [facility] Hematocrit 40.4 37.5 - 51.0 % 04/09/2025 4:50 AM EDT [facility] MCV 86.0 79.0 - 97.0 fL 04/09/2025 4:50 AM EDT [facility] MCH 27.7 26.6 - 33.0 pg 04/09/2025 4:50 AM EDT [facility] MCHC 32.2 31.5 - 35.7 g/dL 04/09/2025 4:50 AM EDT [facility] RDW 12.8 12.3 - 15.4 % 04/09/2025 4:50 AM [facility] RDW-SD 39.9 37.0 - 54.0 fl 04/09/2025 4:50 AM [facility] MPV 10.0 6.0 - 12.0 fL 04/09/2025 4:50 AM [facility] Platelets 211 140 - 450 10*3/mm3 04/09/2025 4:50 AM [facility] Neutrophil % 74.8 42.7 - 76.0 % 04/09/2025 4:50 AM [facility] Lymphocyte % 15.4(L) 19.6 - 45.3 % 04/09/2025 4:50 AM [facility] Monocyte % 8.5 5.0 - 12.0 % 04/09/2025 4:50 AM [facility] Eosinophil % 0.6 0.3 - 6.2 % 04/09/2025 4:50 AM [facility] Basophil % 0.4 0.0 - 1.5 % 04/09/2025 4:50 AM [facility] Immature Grans % 0.3 0.0 - 0.5 % 04/09/2025 4:50 AM [facility] Neutrophils, Absolute 8.23(H) 1.70 - 7.00 10*3/mm3 04/09/2025 4:50 AM [facility] Lymphocytes, Absolute 1.69 0.70 - 3.10 10*3/mm3 04/09/2025 4:50 AM [facility] Monocytes, Absolute 0.94(H) 0.10 - 0.90 10*3/mm3 04/09/2025 4:50 AM [facility] Eosinophils, Absolute 0.07 0.00 - 0.40 10*3/mm3 04/09/2025 4:[facility] Basophils, Absolute 0.04 0.00 - 0.20 10*3/mm3 04/09/2025 4:50 AM EDT [facility] Immature Grans, Absolute 0.03 0.00 - 0.05 10*3/mm3 04/09/2025 4:50 AM EDT [facility] nRBC 0.0 0.0 - 0.2 /100 WBC 04/09/2025 4:50 AM EDT [facility] Blood Venipuncture / Unknown 04/09/2025 4:18 AM EDT 04/09/2025 4:31 AM EDT Sushil Dean Jr., MD LAB BLOOD ORDERABLES Fi nal Result Performing Organization Address City/[facility]/ZIP Co de Phone Number [facility]
[address] [place] [address], * Heparin Anti-Xa (04/09/2025 4:18 AM EDT) Heparin Anti-Xa (UFH) 0.41 0.30 - 0.70 IU/ml 04/09/2025 4:53 AM EDT [facility] Blood Venipuncture / Unknown 04/09/2025 4:18 AM EDT 04/09/2025 4:31 AM EDT Una LundbergD LAB BLOOD ORDERABLES Final R esult [facility]
[address] [place] [address], * (ABNORMAL) Basic Metabolic Panel (04/09/2025 4:18 AM EDT) Glucose 147(H) 65 - 99 mg/dL 04/09/2025 5:33 AM EDT [facility] BUN 23.0(H) 6.0 - 20.0 mg/dL 04/09/2025 5:33 AM EDT [facility] Creatinine 1.15 0.76 - 1.27 mg/dL 04/09/2025 5:33 AM EDT [facility] Sodium 135(L) 136 - 145 mmol/L 04/09/2025 5:33 AM EDT [facility] Potassium 4.2 3.5 - 5.2 mmol/L 04/09/2025 5:33 AM EDT [facility] Chloride 100 98 - 107 mmol/L 04/09/2025 5:33 AM EDT [facility] CO2 26.0 22.0 - 29.0 mmol/L 04/09/2025 5:33 AM EDT [facility] Calcium 8.2(L) 8.6 - 10.5 mg/dL 04/09/2025 5:33 AM EDT [facility] BUN/Creatinine Ratio 20.0 7.0 - 25.0 04/09/2025 5:33 AM EDT [facility] Anion Gap 9.0 5.0 - 15.0 mmol/L 04/09/2025 5:33 AM EDT [facility] eGFR 80.5 >60.0 mL/min/1.7 3 04/09/2025 5:33 AM EDT [facility] Blood Venipuncture / Unknown 04/09/2025 4:18 AM EDT 04/09/2025 4:29 AM EDT [facility] - 04/09/2025 5:33 AM [...] BLOOD ORDERABLES Fi nal Result [facility]
[address] [place] [address], * Wound Culture - Swab, Leg, Right (04/08/2025 3:40 PM EDT) Wound Culture No growth at 3 days ALIZA 04/11/2025 10:40 AM EDT [facility] Gram Stain Few (2+) WBCs seen 04/11/2025 10:40 AM EDT [facility] Gram Stain No organisms seen 04/11/2025 10:40 AM EDT [facility] Swab Structure of right lower limb / Unknown 04/08/2025 3:40 PM EDT 04/08/2025 8:05 PM EDT us Sushil Dean Jr., MD MICROBIOLOGY - GENERAL ORDERABLES Final Result Performing Organization Address City/[facility]/ZIP Co de Phone Number [facility]
[address] [place] [address], [facility]
[address] [place] [address], * Anaerobic Culture - Swab, Leg, Right (04/08/2025 3:40 PM EDT) Anaerobic Culture No anaerobes isolated at 5 days ALIZA 04/13/2025 7:24 AM EDT [facility] Swab Structure of right lower limb / Unknown 04/08/2025 3:40 PM EDT 04/08/2025 8:05 PM EDT us Sushil Dean Jr., MD MICROBIOLOGY - GENERAL ORDERABLES Final Result Performing Organization Address City/[facility]/ZIP Co de Phone Number [facility]
[address] [place] [address], * Scan Slide (04/08/2025 8:41 AM EDT) RBC Morphology Normal Normal 04/08/2025 11:02 AM EDT [facility] WBC Morphology Normal Normal 04/08/2025 11:02 AM EDT [facility] Platelet Estimate Adequate Normal 04/08/2025 11:02 AM EDT [facility] Clumped Platelets Present None Seen 04/08/2025 11:02 AM EDT [facility] Blood Venipuncture / Unknown 04/08/2025 8:41 AM EDT 04/08/2025 9:10 AM EDT Una Minda PharmD LAB BLOOD ORDERABLES Final R esult [facility]
[address] [place] [address], * (ABNORMAL) CBC Auto Differential (04/08/2025 8:41 AM EDT) WBC 10.07 3.40 - 10.80 10*3/mm3 04/08/2025 11:02 AM EDT [facility] RBC 5.01 4.14 - 5.80 10*6/mm3 04/08/2025 11:02 AM EDT [facility] Hemoglobin 14.0 13.0 - 17.7 g/dL 04/08/2025 11:02 AM EDT [facility] Hematocrit 42.7 37.5 - 51.0 % 04/08/2025 11:02 AM EDT [facility] MCV 85.2 79.0 - 97.0 fL 04/08/2025 11:02 AM EDT [facility] MCH 27.9 26.6 - 33.0 pg 04/08/2025 11:02 AM EDT [facility] MCHC 32.8 31.5 - 35.7 g/dL 04/08/2025 11:02 AM EDT [facility] RDW 12.6 12.3 - 15.4 % 04/08/2025 11:02 AM EDT [facility] RDW-SD 38.9 37.0 - 54.0 fl 04/08/2025 11:02 AM [facility] MPV 11.0 6.0 - 12.0 fL 04/08/2025 11:02 AM [facility] Platelets 118(L) 140 - 450 10*3/mm3 04/08/2025 11:02 AM [facility] Neutrophil % 85.1(H) 42.7 - 76.0 % 04/08/2025 11:02 AM [facility] Lymphocyte % 9.3(L) 19.6 - 45.3 % 04/08/2025 11:02 AM [facility] Monocyte % 4.6(L) 5.0 - 12.0 % 04/08/2025 11:02 AM [facility] Eosinophil % 0.3 0.3 - 6.2 % 04/08/2025 11:02 AM [facility] Basophil % 0.2 0.0 - 1.5 % 04/08/2025 11:02 AM [facility] Immature Grans % 0.5 0.0 - 0.5 % 04/08/2025 11:02 AM [facility] Neutrophils, Absolute 8.57(H) 1.70 - 7.00 10*3/mm3 04/08/2025 11:02 AM [facility] Lymphocytes, Absolute 0.94 0.70 - 3.10 10*3/mm3 04/08/2025 11:02 AM [facility] Monocytes, Absolute 0.46 0.10 - 0.90 10*3/mm3 04/08/2025 11:02 AM [facility] Eosinophils, Absolute 0.03 0.00 - 0.40 10*3/mm3 04/08/2025 11:02 AM [facility] Basophils, Absolute 0.02 0.00 - 0.20 10*3/mm3 04/08/2025 11:02 AM [facility] Immature Grans, Absolute 0.05 0.00 - 0.05 10*3/mm3 04/08/2025 11:02 AM EDT [facility] nRBC 0.0 0.0 - 0.2 /100 WBC 04/08/2025 11:02 AM EDT [facility] Blood Venipuncture / Unknown 04/08/2025 8:41 AM EDT 04/08/2025 9:10 AM EDT Una Perla PharmD LAB BLOOD ORDERABLES Final R esult [facility]
[address] [place] [address], * (ABNORMAL) Basic Metabolic Panel (04/08/2025 8:41 AM EDT) Glucose 125(H) 65 - 99 mg/dL 04/08/2025 9:51 AM EDT [facility] BUN 13.2 6.0 - 20.0 mg/dL 04/08/2025 9:51 AM EDT [facility] Creatinine 0.69(L) 0.76 - 1.27 mg/dL 04/08/2025 9:51 AM EDT [facility] Sodium 136 136 - 145 mmol/L 04/08/2025 9:51 AM EDT [facility] Potassium 4.6 3.5 - 5.2 mmol/L 04/08/2025 9:51 AM EDT [facility] Chloride 102 98 - 107 mmol/L 04/08/2025 9:51 AM EDT [facility] CO2 23.5 22.0 - 29.0 mmol/L 04/08/2025 9:51 AM EDT [facility] Calcium 8.4(L) 8.6 - 10.5 mg/dL 04/08/2025 9:51 AM EDT [facility] BUN/Creatinine Ratio 19.1 7.0 - 25.0 04/08/2025 9:51 AM EDT [facility] Anion Gap 10.5 5.0 - 15.0 mmol/L 04/08/2025 9:51 AM EDT [facility] eGFR 117.0 >60.0 mL/min/1.7 3 04/08/2025 9:51 AM EDT [facility] Blood Venipuncture / Unknown 04/08/2025 8:41 AM EDT 04/08/2025 9:09 AM EDT Narrative [facility] - 04/08/2025 9:51 AM EDT GFR [...] ORDERABLES Fi nal Result Performing Organization Address City/[facility]/ZIP Co de Phone Number [facility]
[address] [place] [address], * Heparin Anti-Xa (04/08/2025 8:41 AM EDT) Heparin Anti-Xa (UFH) 0.33 0.30 - 0.70 IU/ml 04/08/2025 9:40 AM EDT [facility] Blood Venipuncture / Unknown 04/08/2025 8:41 AM EDT 04/08/2025 9:10 AM EDT Sushil Dean Jr., MD LAB BLOOD ORDERABLES Fi nal Result Performing Organization Address City/[facility]/ZIP Co de Phone Number [facility]
[address] [place] [address], * FL C Arm During Surgery (04/07/2025 9:32 PM EDT) Narrative SYSTEMGENERATED, DOCUMENTATION - 04/07/2025 9:38 PM EDT This procedure was auto-finalized with no dictation required. us Sushil Dean Jr., MD IMG FLUOROSCOPY ORDERAB LES Final Result * Wound Culture - Swab, Leg, Right (04/07/2025 9:14 PM EDT) Wound Culture No growth at 3 days ALIZA 04/11/2025 10:40 AM EDT [facility] Gram Stain Occasional WBCs seen 04/11/2025 10:40 AM EDT [facility] Gram Stain No organisms seen 04/11/2025 10:40 AM EDT [facility] Swab Structure of right lower limb / Unknown Collection / Unknown 04/07/2025 9:14 PM EDT 04/08/2025 4:36 AM EDT us Sushil Dean Jr., MD MICROBIOLOGY - GENERAL ORDERABLES Final Result Performing Organization Address City/[facility]/ZIP Co de Phone Number [facility]
[address] [place] [address], [place] [phone] [facility]
[address] [place] [address], [place] [phone] * Anaerobic Culture - Swab, Leg, Right (04/07/2025 9:14 PM EDT) Anaerobic Culture No anaerobes isolated at 5 days ALIZA 04/13/2025 7:21 AM EDT [facility] Swab Structure of right lower limb / Unknown Collection / Unknown 04/07/2025 9:14 PM EDT 04/08/2025 4:36 AM EDT us Sushil Dean Jr., MD MICROBIOLOGY - GENERAL ORDERABLES Final Result [facility]
[address] [place] [address], * Anaerobic Culture - Tissue, Leg (04/07/2025 9:13 PM EDT) Anaerobic Culture No anaerobes isolated at 5 days ALIZA 04/13/2025 7:21 AM EDT [facility] Tissue Lower limb structure / Unknown Collection / Unknown 04/07/2025 9:13 PM EDT 04/08/2025 4:54 AM EDT Jason Álvarez DO MICROBIOLOGY - GENERAL ORDERABLE S Final Result Performing Organization Address [facility]/State/ZIP Co de Phone Number [facility]
[address] [place] [address], * Tissue / Bone Culture - Tissue, Leg, Right (04/07/2025 9:13 PM EDT) Tissue Culture No growth at 3 days ALIZA 04/11/2025 10:36 AM EDT [facility] Gram Stain Rare (1+) WBCs seen 04/11/2025 10:36 AM EDT [facility] Gram Stain No organisms seen 04/11/2025 10:36 AM EDT [facility] Tissue Structure of right lower limb / Unknown 04/07/2025 9:13 PM EDT 04/08/2025 4:54 AM EDT Sushil Dean Jr., MD MICROBIOLOGY - GENERAL ORDERABLES Final Result [facility]
[address] [place] [address], [facility]
[address] [place] [address], [place] [phone] * (ABNORMAL) Wound Culture - Swab, Leg, Right (04/07/2025 9:07 PM EDT) Wound Culture Light growth (2+) Staphylococcus aureus, MRSA(A) ALIZA 04/10/2025 10:38 AM EDT [facility] Comment: Methicillin resistant Staphylococcus aureus, Patient may be an isolation risk. Gram Stain Few (2+) WBCs seen 04/10/2025 10:38 AM EDT [facility] Gram Stain No organisms seen 10:38 AM EDT [facility] Swab Structure of right lower limb [...] - GENERAL ORDERABLES Final Result [facility]
[address] [place] [address], [place] [phone] [facility]
[address] [place] [address], [place] [phone] * Anaerobic Culture - Swab, Leg, Right (04/07/2025 9:07 PM EDT) Anaerobic Culture No anaerobes isolated at 5 days ALIZA 04/13/2025 7:21 AM EDT [facility] Swab Structure of right lower limb / Unknown Collection / Unknown 04/07/2025 9:07 PM EDT 04/08/2025 4:36 AM EDT us Sushil Dean Jr., MD MICROBIOLOGY - GENERAL ORDERABLES Final Result [facility]
[address] [place] [address], * Heparin Anti-Xa (04/07/2025 9:10 AM EDT) Pathologist [facility] Heparin Anti-Xa (UFH) 0.30 0.30 - 0.70 IU/ml 04/07/2025 10:12 AM EDT [facility] Blood Venipuncture / Unknown 04/07/2025 9:10 AM EDT 04/07/2025 9:38 AM EDT Una Perla PharmD LAB BLOOD ORDERABLES Final R esult Performing Organization Address City/[facility]/ZIP Co de Phone Number [facility]
[address] [place] [address], * (ABNORMAL) CBC Auto Differential (04/07/2025 9:10 AM EDT) Pathologist [facility] WBC 8.63 3.40 - 10.80 10*3/mm3 04/07/2025 9:50 AM EDT [facility] RBC 5.23 4.14 - 5.80 10*6/mm3 04/07/2025 9:50 AM EDT [facility] Hemoglobin 14.7 13.0 - 17.7 g/dL 04/07/2025 9:50 AM EDT [facility] Hematocrit 44.8 37.5 - 51.0 % 04/07/2025 9:50 AM EDT [facility] MCV 85.7 79.0 - 97.0 fL 04/07/2025 9:50 AM EDT [facility] MCH 28.1 26.6 - 33.0 pg 04/07/2025 9:50 AM EDT [facility] MCHC 32.8 31.5 - 35.7 g/dL 04/07/2025 9:50 AM EDT [facility] RDW 12.8 12.3 - 15.4 % 04/07/2025 9:50 AM [facility] RDW-SD 39.9 37.0 - 54.0 fl 04/07/2025 9:50 AM [facility] MPV 10.8 6.0 - 12.0 fL 04/07/2025 9:50 AM [facility] Platelets 149 140 - 450 10*3/mm3 04/07/2025 9:50 AM [facility] Neutrophil % 66.7 42.7 - 76.0 % 04/07/2025 9:50 AM [facility] Lymphocyte % 20.5 19.6 - 45.3 % 04/07/2025 9:50 AM [facility] Monocyte % 9.8 5.0 - 12.0 % 04/07/2025 9:50 AM [facility] Eosinophil % 2.1 0.3 - 6.2 % 04/07/2025 9:50 AM [facility] Basophil % 0.3 0.0 - 1.5 % 04/07/2025 9:50 AM [facility] Immature Grans % 0.6(H) 0.0 - 0.5 % 04/07/2025 9:50 AM [facility] Neutrophils, Absolute 5.75 1.70 - 7.00 10*3/mm3 04/07/2025 9:50 AM [facility] Lymphocytes, Absolute 1.77 0.70 - 3.10 10*3/mm3 04/07/2025 9:50 AM [facility] Monocytes, Absolute 0.85 0.10 - 0.90 10*3/mm3 04/07/2025 9:50 AM [facility] Eosinophils, Absolute 0.18 0.00 - 0.40 10*3/mm3 04/07/2025 9:50 AM [facility] Basophils, Absolute 0.03 0.00 - 0.20 10*3/mm3 04/07/2025 9:50 AM [facility] Immature Grans, Absolute 0.05 0.00 - 0.05 10*3/mm3 04/07/2025 9:50 AM EDT [facility] nRBC 0.0 0.0 - 0.2 /100 WBC 04/07/2025 9:50 AM EDT [facility] Blood Venipuncture / Unknown 04/07/2025 9:10 AM EDT 04/07/2025 9:38 AM EDT us Jason Álvarez DO LAB BLOOD ORDERABLES Final Resul t [facility]
[address] [place] [address], * (ABNORMAL) Basic Metabolic Panel (04/07/2025 9:10 AM EDT) Glucose 112(H) 65 - 99 mg/dL 04/07/2025 10:19 AM EDT [facility] BUN 13.1 6.0 - 20.0 mg/dL 04/07/2025 10:19 AM EDT [facility] Creatinine 0.77 0.76 - 1.27 mg/dL 04/07/2025 10:19 AM EDT [facility] Sodium 139 136 - 145 mmol/L 04/07/2025 10:19 AM EDT [facility] Potassium 4.2 3.5 - 5.2 mmol/L 04/07/2025 10:19 AM EDT [facility] Comment:Specimen hemolyzed. Result may be falsely elevated. Chloride 105 98 - 107 mmol/L 04/07/2025 10:19 AM EDT [facility] CO2 24.8 22.0 - 29.0 mmol/L 04/07/2025 10:19 AM EDT [facility] Calcium 8.6 8.6 - 10.5 mg/dL 04/07/2025 10:19 AM EDT [facility] BUN/Creatinine Ratio 17.0 7.0 - 25.0 04/07/2025 10:19 AM EDT [facility] Anion Gap 9.2 5.0 - 15.0 mmol/L 04/07/2025 10:19 AM EDT [facility] eGFR 113.2 >60.0 mL/min/1.7 3 04/07/2025 10:19 AM EDT [facility] Blood Venipuncture / Unknown 04/07/2025 9:10 AM EDT 04/07/2025 9:38 AM EDT Narrative [facility] - 04/07/2025 10:19 AM EDT GFR [...] BLOOD ORDERABLES Final Resul t [facility]
[address] [place] [address], * MRI Tibia Fibula Right With & [...] [place]enrostro 04/07/2025 9:58 AM EDT Workstation ID: [id number] Narrative 04/07/2025 9:58 AM EDT MRI TIBIA [...] Buenrostro 04/07/2025 9:58 AM EDT Workstation ID: [id number] Sushil Dean Jr., MD IMG MRI ORDERABLES Mary Beth l Result * Heparin Anti-Xa (04/07/2025 1:42 AM EDT) [facility] Heparin Anti-Xa (UFH) 0.38 0.30 - 0.70 IU/ml 04/07/2025 2:14 AM EDT [facility] Blood Venipuncture / Unknown 04/07/2025 1:42 AM EDT 04/07/2025 1:54 AM EDT Chelsie Turpin [facility] LAB BLOOD ORDERABLES Final R esult [facility]
[address] [place] [address], * Heparin Anti-Xa (04/06/2025 7:16 PM EDT) [facility] Heparin Anti-Xa (UFH) 0.33 0.30 - 0.70 IU/ml 04/06/2025 7:50 PM EDT [facility] Blood Venipuncture / Unknown 04/06/2025 7:16 PM EDT 04/06/2025 7:35 PM EDT Cherri Beatty [facility] LAB BLOOD ORDERABLES Final Res ult Performing Organization Address [facility] Co de Phone Number [facility]
[address] [place] [address], * Potassium (04/06/2025 7:16 PM EDT) [facility] Potassium 4.0 3.5 - 5.2 mmol/L 04/06/2025 7:53 PM EDT [facility] Blood Venipuncture / Unknown 04/06/2025 7:16 PM EDT 04/06/2025 7:35 PM EDT Jason Álvarez DO LAB BLOOD ORDERABLES Final Resul t Performing Organization Address [facility] de Phone Number [facility]
[address] [place] [address], * (ABNORMAL) Heparin Anti-Xa (04/06/2025 12:36 PM EDT) [facility] Heparin Anti-Xa (UFH) 0.24(L) 0.30 - 0.70 IU/ml 04/06/2025 1:23 PM EDT [facility] Blood Venipuncture / Unknown 04/06/2025 12:36 PM EDT 04/06/2025 1:07 PM EDT Una Perla PharmD LAB BLOOD ORDERABLES Final R esult Performing Organization Address [facility] Co de Phone Number [facility]
[address] [place] [address], * (ABNORMAL) Heparin Anti-Xa (04/06/2025 3:42 AM EDT) [facility] Heparin Anti-Xa (UFH) 0.25(L) 0.30 - 0.70 IU/ml 04/06/2025 5:30 AM EDT [facility] Blood Venipuncture / Unknown 04/06/2025 3:42 AM EDT 04/06/2025 4:59 AM EDT Chelsie Dyana [facility] LAB BLOOD ORDERABLES Final R esult [facility]
[address] [place] [address], * (ABNORMAL) Basic Metabolic Panel (04/06/2025 3:42 AM EDT) [facility] Glucose 94 65 - 99 mg/dL 04/06/2025 5:59 AM EDT [facility] BUN 12.8 6.0 - 20.0 mg/dL 04/06/2025 5:59 AM EDT [facility] Creatinine 0.80 0.76 - 1.27 mg/dL 04/06/2025 5:59 AM EDT [facility] Sodium 138 136 - 145 mmol/L 04/06/2025 5:59 AM EDT [facility] Potassium 3.6 3.5 - 5.2 mmol/L 04/06/2025 5:59 AM EDT [facility] Chloride 103 98 - 107 mmol/L 04/06/2025 5:59 AM EDT [facility] CO2 24.2 22.0 - 29.0 mmol/L 04/06/2025 5:59 AM EDT [facility] Calcium 8.0(L) 8.6 - 10.5 mg/dL 04/06/2025 5:59 AM EDT [facility] BUN/Creatinine Ratio 16.0 7.0 - 25.0 04/06/2025 5:59 AM EDT [facility] Anion Gap 10.8 5.0 - 15.0 mmol/L 04/06/2025 5:59 AM EDT [facility] eGFR 111.9 >60.0 mL/min/1.7 3 04/06/2025 5:59 AM EDT [facility] Blood Venipuncture / Unknown 04/06/2025 3:42 AM EDT 04/06/2025 5:20 AM EDT [facility] - 04/06/2025 5:59 AM [...] BLOOD ORDERABLES Final Resul t [facility]
[address] [place] [address], * (ABNORMAL) CBC Auto Differential (04/06/2025 3:41 AM EDT) WBC 10.86(H) 3.40 - 10.80 10*3/mm3 04/06/2025 5:04 AM EDT [facility] RBC 5.08 4.14 - 5.80 10*6/mm3 04/06/2025 5:04 AM EDT [facility] Hemoglobin 13.9 13.0 - 17.7 g/dL 04/06/2025 5:04 AM EDT [facility] Hematocrit 43.7 37.5 - 51.0 % 04/06/2025 5:04 AM EDT [facility] MCV 86.0 79.0 - 97.0 fL 04/06/2025 5:[facility] MCH 27.4 26.6 - 33.0 pg 04/06/2025 5:04 AM [facility] MCHC 31.8 31.5 - 35.7 g/dL 04/06/2025 5:04 AM [facility] RDW 12.8 12.3 - 15.4 % 04/06/2025 5:04 AM [facility] RDW-SD 40.0 37.0 - 54.0 fl 04/06/2025 5:04 AM [facility] MPV 11.7 6.0 - 12.0 fL 04/06/2025 5:04 AM [facility] Platelets 115(L) 140 - 450 10*3/mm3 04/06/2025 5:04 AM [facility] Neutrophil % 65.3 42.7 - 76.0 % 04/06/2025 5:04 AM [facility] Lymphocyte % 20.5 19.6 - 45.3 % 04/06/2025 5:04 AM [facility] Monocyte % 11.8 5.0 - 12.0 % 04/06/2025 5:04 AM [facility] Eosinophil % 1.8 0.3 - 6.2 % 04/06/2025 5:04 AM [facility] Basophil % 0.3 0.0 - 1.5 % 04/06/2025 5:04 [facility] Immature Grans % 0.3 0.0 - 0.5 % 04/06/2025 5:04 AM [facility] Neutrophils, Absolute 7.09(H) 1.70 - 7.00 10*3/mm3 04/06/2025 5:04 AM [facility] Lymphocytes, Absolute 2.23 0.70 - 3.10 10*3/mm3 04/06/2025 5:04 AM [facility] Monocytes, Absolute 1.28(H) 0.10 - 0.90 10*3/mm3 04/06/2025 5:04 AM EDT [facility] Eosinophils, Absolute 0.20 0.00 - 0.40 10*3/mm3 04/06/2025 5:04 AM EDT [facility] Basophils, Absolute 0.03 0.00 - 0.20 10*3/mm3 04/06/2025 5:04 AM EDT [facility] Immature Grans, Absolute 0.03 0.00 - 0.05 10*3/mm3 04/06/2025 5:04 AM EDT [facility] nRBC 0.0 0.0 - 0.2 /100 WBC 04/06/2025 5:04 AM EDT [facility] Blood Venipuncture / Unknown 04/06/2025 3:41 AM EDT 04/06/2025 4:58 AM EDT Jason Álvarez DO LAB BLOOD ORDERABLES Final Resul t Performing Organization Address [facility] Co de Phone Number [facility]
[address] [place] [address], [place] [phone] * Heparin Anti-Xa (04/05/2025 8:43 PM EDT) Pathologist [facility] Heparin Anti-Xa (UFH) 0.38 0.30 - 0.70 IU/ml 04/05/2025 9:09 PM EDT [facility] Blood Venipuncture / Unknown 04/05/2025 8:43 PM EDT 04/05/2025 8:55 PM EDT us Cherri Beatty [facility] LAB BLOOD ORDERABLES Final Res ult Performing Organization Address [facility] Co de Phone Number [facility]
[address] [place] [address], [place] [phone] * CK (04/05/2025 12:15 PM EDT) Creatine Kinase 140 20 - 200 U/L 04/05/2025 1:31 PM EDT [facility] Blood Venipuncture / Unknown 04/05/2025 12:15 PM EDT 04/05/2025 1:03 PM EDT Carlton Mead MD LAB BLOOD ORDERABLES Final R esult Performing Organization Address [facility]/ZIP Co de Phone Number [facility]
[address] [place] [address], * (ABNORMAL) Heparin Anti-Xa (04/05/2025 12:15 PM EDT) [facility] Heparin Anti-Xa (UFH) 0.17(L) 0.30 - 0.70 IU/ml 04/05/2025 1:21 PM EDT [facility] Blood Venipuncture / Unknown 04/05/2025 12:15 PM EDT 04/05/2025 1:04 PM EDT Una Perla PharmD LAB BLOOD ORDERABLES Final R esult Performing Organization Address [facility] Co de Phone Number [facility]
[address] [place] [address], * (ABNORMAL) aPTT (04/05/2025 3:54 AM EDT) [facility] PTT 35.3(L) 60.0 - 90.0 seconds 04/05/2025 4:31 AM EDT [facility] Blood Venipuncture / Unknown 04/05/2025 3:54 AM EDT 04/05/2025 4:15 AM EDT Narrative [facility] - 04/05/2025 4:31 AM EDT PTT = The equivalent PTT values for the therapeutic range of heparin levels at 0.3 to 0.5 U/ml are 60 to 70 seconds. Gli[employer]D LAB BLOOD ORDERABLES Final R esult [facility]
[address] [place] [address], * Heparin Anti-Xa (04/05/2025 3:54 AM EDT) Pathologist [facility] Heparin Anti-Xa (UFH) 0.30 0.30 - 0.70 IU/ml 04/05/2025 4:32 AM EDT [facility] Blood Venipuncture / Unknown 04/05/2025 3:54 AM EDT 04/05/2025 4:15 AM EDT [employer] LAB BLOOD ORDERABLES Final R esult Performing Organization Address [facility]/ZIP Co de Phone Number [facility]
[address] [place] [address], * (ABNORMAL) CBC Auto Differential (04/05/2025 3:54 AM EDT) [facility] WBC 11.18(H) 3.40 - 10.80 10*3/mm3 04/05/2025 4:20 AM EDT [facility] RBC 5.00 4.14 - 5.80 10*6/mm3 04/05/2025 4:20 AM EDT [facility] Hemoglobin 13.9 13.0 - 17.7 g/dL 04/05/2025 4:20 AM EDT [facility] Hematocrit 42.4 37.5 - 51.0 % 04/05/2025 4:20 AM EDT [facility] MCV 84.8 79.0 - 97.0 fL 04/05/2025 4:20 AM EDT [facility] MCH 27.8 26.6 - 33.0 pg 04/05/2025 4:20 AM EDT [facility] MCHC 32.8 31.5 - 35.7 g/dL 04/05/2025 4:20 AM [facility] RDW 12.9 12.3 - 15.4 % 04/05/2025 4:20 AM [facility] RDW-SD 39.7 37.0 - 54.0 fl 04/05/2025 4:20 AM [facility] MPV 10.2 6.0 - 12.0 fL 04/05/2025 4:20 AM [facility] Platelets 160 140 - 450 10*3/mm3 04/05/2025 4:20 AM [facility] Neutrophil % 73.5 42.7 - 76.0 % 04/05/2025 4:20 AM [facility] Lymphocyte % 14.0(L) 19.6 - 45.3 % 04/05/2025 4:20 AM [facility] Monocyte % 11.0 5.0 - 12.0 % 04/05/2025 4:20 AM [facility] Eosinophil % 0.8 0.3 - 6.2 % 04/05/2025 4:20 AM [facility] Basophil % 0.3 0.0 - 1.5 % 04/05/2025 4:20 AM [facility] Immature Grans % 0.4 0.0 - 0.5 % 04/05/2025 4:20 AM [facility] Neutrophils, Absolute 8.23(H) 1.70 - 7.00 10*3/mm3 04/05/2025 4:20 AM [facility] Lymphocytes, Absolute 1.56 0.70 - 3.10 10*3/mm3 04/05/2025 4:20 AM [facility] Monocytes, Absolute 1.23(H) 0.10 - 0.90 10*3/mm3 04/05/2025 4:20 AM [facility] Eosinophils, Absolute 0.09 0.00 - 0.40 10*3/mm3 04/05/2025 4:20 AM [facility] Basophils, Absolute 0.03 0.00 - 0.20 10*3/mm3 04/05/2025 4:20 AM EDT [facility] Immature Grans, Absolute 0.04 0.00 - 0.05 10*3/mm3 04/05/2025 4:20 AM EDT [facility] nRBC 0.0 0.0 - 0.2 /100 WBC 04/05/2025 4:20 AM EDT [facility] Blood Venipuncture / Unknown 04/05/2025 3:54 AM EDT 04/05/2025 4:16 AM EDT Una Perla PharmD LAB BLOOD ORDERABLES Final R esult [facility]
[address] [place] [address], * (ABNORMAL) Basic Metabolic Panel (04/05/2025 3:54 AM EDT) Glucose 152(H) 65 - 99 mg/dL 04/05/2025 4:40 AM EDT [facility] BUN 17.3 6.0 - 20.0 mg/dL 04/05/2025 4:40 AM EDT [facility] Creatinine 0.92 0.76 - 1.27 mg/dL 04/05/2025 4:40 AM EDT [facility] Sodium 136 136 - 145 mmol/L 04/05/2025 4:40 AM EDT [facility] Potassium 3.9 3.5 - 5.2 mmol/L 04/05/2025 4:40 AM EDT [facility] Chloride 103 98 - 107 mmol/L 04/05/2025 4:40 AM EDT [facility] CO2 24.0 22.0 - 29.0 mmol/L 04/05/2025 4:40 AM EDT [facility] Calcium 7.8(L) 8.6 - 10.5 mg/dL 04/05/2025 4:40 AM EDT [facility] BUN/Creatinine Ratio 18.8 7.0 - 25.0 04/05/2025 4:40 AM EDT [facility] Anion Gap 9.0 5.0 - 15.0 mmol/L 04/05/2025 4:40 AM EDT [facility] eGFR 105.2 >60.0 mL/min/1.7 3 04/05/2025 4:40 AM EDT [facility] Blood Venipuncture / Unknown 04/05/2025 3:54 AM EDT 04/05/2025 4:15 AM EDT [facility] - 04/05/2025 4:40 AM [...] BLOOD ORDERABLES Final Re sult [facility]
[address] [place] [address], * (ABNORMAL) aPTT (04/05/2025 12:18 AM EDT) PTT 33.6(L) 60.0 - 90.0 seconds 04/05/2025 12:53 AM EDT [facility] Blood Venipuncture / Unknown 04/05/2025 12:18 AM EDT 04/05/2025 12:37 AM EDT [facility] - 04/05/2025 12:53 AM EDT PTT = The equivalent PTT values for the therapeutic range of heparin levels at 0.3 to 0.5 U/ml are 60 to 70 seconds. IPICO PharmD LAB BLOOD ORDERABLES Final R esult [facility]
[address] [place] [address], [place] [phone] * (ABNORMAL) Protime-INR (04/05/2025 12:18 AM EDT) Protime 15.9(H) 12.2 - 15.3 Seconds 04/05/2025 12:53 AM EDT [facility] INR 1.19(H) 0.89 - 1.12 04/05/2025 12:53 AM EDT [facility] Blood Venipuncture / Unknown 04/05/2025 12:18 AM EDT 04/05/2025 12:37 AM EDT IPICO PharmD LAB BLOOD ORDERABLES Final R esult Performing Organization Address [facility] Co de Phone Number [facility]
[address] [place] [address], [place] [phone] * Heparin Anti-Xa (04/05/2025 12:18 AM EDT) Pathologist [facility] Heparin Anti-Xa (UFH) 0.39 0.30 - 0.70 IU/ml 04/05/2025 12:54 AM EDT [facility] Blood Venipuncture / Unknown 04/05/2025 12:18 AM EDT 04/05/2025 12:37 AM EDT IPICO PharmD LAB BLOOD ORDERABLES Final R esult Performing Organization Address City/[facility]/ZIP Co de Phone Number [facility]
[address] [place] [address], [place] [phone] * MRI Tibia Fibula Right With & [...] MD 04/04/2025 11:00 PM EDT Workstation ID: [id number] Narrative 04/04/2025 11:00 PM EDT MRI TIBIA [...] MD 04/04/2025 11:00 PM EDT Workstation ID: [id number] Leonora Shepherd MD IMG MRI ORDERABLES Final Resu lt * POC Creatinine (04/04/2025 2:49 PM EDT) Creatinine 1.10 0.60 - 1.30 mg/dL 04/07/2025 7:14 PM EDT [facility] Comment:Serial Number: [id number]: [id number] Venous Blood 04/04/2025 2:49 PM EDT 04/07/2025 7:14 PM EDT Jason Álvarez DO POINT OF CARE TEST ORDERABLES Fi nal Result [facility]
[address] [place] [address], [place] [phone] * (ABNORMAL) CBC Auto Differential (04/04/2025 2:47 PM EDT) [facility] Signature WBC 12.72(H) 3.40 - 10.80 10*3/mm3 04/04/2025 2:56 PM EDT [facility] RBC 5.64 4.14 - 5.80 10*6/mm3 04/04/2025 2:56 PM EDT [facility] Hemoglobin 15.3 13.0 - 17.7 g/dL 04/04/2025 2:56 PM EDT [facility] Hematocrit 47.9 37.5 - 51.0 % 04/04/2025 2:56 PM EDT [facility] MCV 84.9 79.0 - 97.0 fL 04/04/2025 2:56 PM EDT [facility] MCH 27.1 26.6 - 33.0 pg 04/04/2025 2:56 PM EDT [facility] MCHC 31.9 31.5 - 35.7 g/dL 04/04/2025 2:56 PM EDT [facility] RDW 13.1 12.3 - 15.4 % 04/04/2025 2:56 PM EDT [facility] RDW-SD 40.3 37.0 - 54.0 fl 04/04/2025 2:56 PM EDT [facility] MPV 9.4 6.0 - 12.0 fL 04/04/2025 2:56 PM EDT [facility] Platelets 232 140 - 450 10*3/mm3 04/04/2025 2:56 PM EDT [facility] Neutrophil % 74.9 42.7 - 76.0 % 04/04/2025 2:56 PM EDT [facility] Lymphocyte % 13.1(L) 19.6 - 45.3 % 04/04/2025 2:56 PM EDT [facility] Monocyte % 11.2 5.0 - 12.0 % 04/04/2025 2:56 PM EDT [facility] Eosinophil % 0.4 0.3 - 6.2 % 04/04/2025 2:56 PM EDT [facility] Basophil % 0.2 0.0 - 1.5 % 04/04/2025 2:56 PM EDT [facility] Immature Grans % 0.2 0.0 - 0.5 % 04/04/2025 2:56 PM EDT [facility] Neutrophils, Absolute 9.52(H) 1.70 - 7.00 10*3/mm3 04/04/2025 2:56 PM EDT [facility] Lymphocytes, Absolute 1.66 0.70 - 3.10 10*3/mm3 04/04/2025 2:56 PM EDT [facility] Monocytes, Absolute 1.43(H) 0.10 - 0.90 10*3/mm3 04/04/2025 2:56 PM EDT [facility] Eosinophils, Absolute 0.05 0.00 - 0.40 10*3/mm3 04/04/2025 2:56 PM EDT [facility] Basophils, Absolute 0.03 0.00 - 0.20 10*3/mm3 04/04/2025 2:56 PM EDT [facility] Immature Grans, Absolute 0.03 0.00 - 0.05 10*3/mm3 04/04/2025 2:56 PM EDT [facility] nRBC 0.0 0.0 - 0.2 /100 WBC 04/04/2025 2:56 PM EDT [facility] Blood Venipuncture / Unknown 04/04/2025 2:47 PM EDT 04/04/2025 2:52 PM EDT us Mario Crowley DO LAB BLOOD ORDERABLES Fin al Result [facility]
[address] [place] [address], * (ABNORMAL) C-reactive Protein (04/04/2025 2:47 PM EDT) Pathologist [facility] C-Reactive Protein 8.57(H) 0.00 - 0.50 mg/dL 04/04/2025 3:26 PM EDT [facility] Blood Venipuncture / Unknown 04/04/2025 2:47 PM EDT 04/04/2025 2:52 PM EDT Mario Ortiz Keo LAB BLOOD ORDERABLES Fin al Result [facility]
[address] [place] [address], * (ABNORMAL) Sedimentation Rate (04/04/2025 2:47 PM EDT) [facility] Sed Rate 51(H) 0 - 15 mm/hr 04/04/2025 3:06 PM EDT [facility] Blood Venipuncture / Unknown 04/04/2025 2:47 PM EDT 04/04/2025 2:52 PM EDT Mario Ortiz Keo LAB BLOOD ORDERABLES Fin al Result Performing Organization Address City/[facility]/ZIP Co de Phone Number [facility]
[address] [place] [address], * Comprehensive Metabolic Panel (04/04/2025 2:47 PM EDT) [facility] Glucose 90 65 - 99 mg/dL 04/04/2025 3:26 PM EDT [facility] BUN 18.3 6.0 - 20.0 mg/dL 04/04/2025 3:26 PM EDT [facility] Creatinine 0.94 0.76 - 1.27 mg/dL 04/04/2025 3:26 PM EDT [facility] Sodium 136 136 - 145 mmol/L 04/04/2025 3:26 PM EDT [facility] Potassium 3.8 3.5 - 5.2 mmol/L 04/04/2025 3:26 PM EDT [facility] Chloride 100 98 - 107 mmol/L 04/04/2025 3:26 PM EDT [facility] CO2 25.3 22.0 - 29.0 mmol/L 04/04/2025 3:26 PM EDT [facility] Calcium 8.6 8.6 - 10.5 mg/dL 04/04/2025 3:26 PM EDT [facility] Total Protein 7.3 6.0 - 8.5 g/dL 04/04/2025 3:26 PM EDT [facility] Albumin 4.1 3.5 - 5.2 g/dL 04/04/2025 3:26 PM EDT [facility] ALT (SGPT) 26 1 - 41 U/L 04/04/2025 3:26 PM EDT [facility] AST (SGOT) 25 1 - 40 U/L 04/04/2025 3:26 PM EDT [facility] Alkaline Phosphatase 106 39 - 117 U/L 04/04/2025 3:26 PM T [facility] Total Bilirubin 1.0 0.0 - 1.2 mg/dL 04/04/2025 3:26 PM EDT [facility] Globulin 3.2 gm/dL 04/04/2025 3:26 PM T [facility] Comment:Calculated Result A/G Ratio 1.3 g/dL 04/04/2025 3:26 PM EDT [facility] BUN/Creatinine Ratio 19.5 7.0 - 25.0 04/04/2025 3:26 PM T [facility] Anion Gap 10.7 5.0 - 15.0 mmol/L 04/04/2025 3:26 PM T [facility] eGFR 102.5 >60.0 mL/min/1.7 3 04/04/2025 3:26 PM [facility] Blood Venipuncture / Unknown 04/04/2025 2:47 PM EDT 04/04/2025 2:52 PM EDT Narrative [facility] - 04/04/2025 3:26 PM EDT GFR [...] BLOOD ORDERABLES Fin al Result [facility]
[address] [place] [address], documented in this encounter Visit Diagnoses Diagnosis [...] BPA Driven Protocol [facility] Electrolyte Replacement Protocol Algorithm to View Details [...] BPA Driven Protocol [facility] [employer] [facility] Electrolyte Replacement Protocol Algorithm to View Details [...] Salazar, KELL)[phone] (Given - Provider: Anahy Marcelino, LOG INSPECTOR)[id number] (Canceled Entry - Provider: Anahy Marcelino LOG INSPECTOR - Comment: previously given) 0837 (Given [...] medication prescribed for a lower pain scale. ([facility]) If given for pain, use the [...] Continuous Medication Order 04/09/2025 04/10/2025 04/11/2025 heparin 40622 units/250 mL (100 units/mL) in 0.45 % [...] BPA Driven Protocol Open Order & [facility] Electrolyte Replacement Protocol Algorithm to View Details [...] documented as of this encounter Care Teams Shoe Lay Out Planner Relationship Specialty Start Date End Date Provider, [place] [address] PCP - General 05/09/23 documented as of this encounter
--- OUTSIDE RECORDS SUMMARY | 2025-04-08 15:34 | XMS_ITS | Encounter Summary ---
Author Organization [facility] Address [address] [place] [address] Care Team Providers Care Pneumatic Drum Sander Name Role Phone Provider, No Known Primary Care Provider Unavail able Reason for Visit * Auth/Cert Specialty Diagnoses / Procedures Referred By Bulmaro muniz Referred To Contact Diagnoses Right BKA infection Referral ID Status Reason Start Date Expiration Date Visits Re quested Visits Authorized [id number] 1 1 Encounter Details Date Type Department Care Team (Late st Contact Info) Description 04/08/2025 3:34 PM EDT Anesthesia Event [facility] OR [address] [place] [address] Ulises Hoffman MD [address] [place] [address] Jairo Brooks MD [address] [place] [address] Anesthesia Record Procedure Summary Procedure Name Responsible [...] = 0.6 oz pur e alcohol) [facility] Utilities Answer Date Recorded In the past 12 months has [employer], oil, or water [employer] threatened to shut off services in your [...] or training? 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
--- OUTSIDE RECORDS SUMMARY | 2025-04-24 08:21 | XMS_ITS | Clinical Summary ---
Author Organization [facility] Address [address] [place] [address] Care Team Providers Care Supervisor Public Message Service Name Role Phone Provider, No Known Primary [...] Discontinue d(Stop Taking at Discharge) Lactobacillus- Inulin ([facility] [employer] [facility]) capsule Take 200 mg by mouth [...] Description 04/08/2025 3:34 PM EDT [place]est[place] [facility] [place] [place] [address] [place] [phone] Ulises Hoffman MD Wells, Jeremy B., MD 04/08/2025 2:45 PM EDT - 04/08/2025 4:04 PM EDT Surgery [facility] OR [address] [place] [address] Sushil Dean Jr., MD LEG DEBRIDEMENT AND IRRIGATION 04/07/2025 8:36 PM EDT Anesthesia Event [facility] OR [address] [place] [address] Luci Alonso DO 04/07/2025 6:00 PM EDT - 04/07/2025 6:52 PM EDT Surgery [facility] OR [address] [place] [address] Sushil Dean Jr., MD LEG DEBRIDEMENT, IRRIGATION 04/04/2025 4:10 PM EDT - 04/11/2025 1:58 PM EDT Hospital Encounter [facility] 5G [address] [place] [address] Mario Crowley DO Anderson, Laurie, [...] Recorded In the past 12 months has [employer], gas, oil, or water [employer] threatened to shut off services in your [...] this topic Medical Devices Implanted Type Area Steffen House Supervisor Device Identifier Shelf Expiration Date Model / Serial / Lot Dev Wnd/Cls Contrl Tiss Stratafix Spiral Pls Pds Ct1 0 22cm - [id number] Implanted:Qty: 1 on 04/08/2025 by Sushil Dean Jr., MD at [facility] Implant Right: Leg [employer] 12/07/2025 [id number] / / [id number] Procedures Procedure Name Priority [...] - 450 10*3/mm3 04/11/2025 4:02 AM EDT [facility] Neutrophil % 59.5 42.7 - 76.0 % 04/11/2025 4:02 AM EDT [facility] Lymphocyte % 26.3 19.6 - 45.3 % 04/11/2025 4:02 AM EDT [facility] Monocyte % 9.3 5.0 - 12.0 % 04/11/2025 4:02 AM [facility] Eosinophil % 4.1 0.3 - 6.2 % 04/11/2025 4:02 AM EDT [facility] Basophil % 0.4 0.0 - 1.5 % [facility] Immature Grans % 0.4 0.0 - 0.5 % 04/11/2025 4:02 AM [facility] Neutrophils, Absolute 4.69 1.70 - 7.00 10*3/mm3 04/11/2025 4:02 AM [facility] Lymphocytes, Absolute 2.07 0.70 - 3.10 10*3/mm3 04/11/2025 4:02 AM [facility] Monocytes, Absolute 0.73 0.10 - 0.90 10*3/mm3 04/11/2025 4:02 AM [facility] Eosinophils, Absolute 0.32 0.00 - 0.40 10*3/mm3 04/11/2025 4:02 AM [facility] Basophils, Absolute 0.03 0.00 - 0.20 10*3/mm3 04/11/2025 4:02 AM [facility] Immature Grans, Absolute 0.03 0.00 - 0.05 10*3/mm3 04/11/2025 4:02 AM [facility] nRBC 0.0 0.0 - 0.2 /100 WBC 04/11/2025 4:02 AM [facility] Blood Venipuncture / Unknown 04/11/2025 3:40 AM EDT 04/11/2025 3:59 AM EDT Sushil Dean Jr., MD LAB BLOOD ORDERABLES Fi nal Result [facility]
[address] [place] [address], * (ABNORMAL) Comprehensive Metabolic Panel (04/11/2025 3:40 [...] race as a factor us Rosario Hill FISH HATCHERY MANAGER LAB BLOOD ORDERABLES Final Result [facility]
[address] [place] [id number], * Heparin Anti-Xa (04/10/2025 3:46 AM EDT) Only the most recent of13 resultswithin the time period is included. Heparin Anti-Xa (UFH) 0.35 0.30 - 0.70 IU/ml 04/10/2025 4:23 AM EDT [facility] Blood Venipuncture / Unknown 04/10/2025 3:46 AM EDT 04/10/2025 3:53 AM EDT Larisa Hamilton [facility] LAB BLOOD ORDERABLES Final R esult [facility]
[address] [place] [address], * (ABNORMAL) Basic Metabolic Panel (04/10/2025 3:46 AM EDT) Only the most recent of6 resultswithin the time period is included. [facility] Glucose 125(H) 65 - 99 mg/dL 04/10/2025 4:20 AM EDT [facility] BUN 15.9 6.0 - 20.0 mg/dL 04/10/2025 4:20 AM EDT [facility] Creatinine 0.77 0.76 - 1.27 mg/dL 04/10/2025 4:20 AM EDT [facility] Sodium 137 136 - 145 mmol/L 04/10/2025 4:20 AM EDT [facility] Potassium 3.9 3.5 - 5.2 mmol/L 04/10/2025 4:20 AM EDT [facility] Chloride 102 98 - 107 mmol/L 04/10/2025 4:20 AM EDT [facility] CO2 26.9 22.0 - 29.0 mmol/L 04/10/2025 4:20 AM EDT [facility] Calcium 7.9(L) 8.6 - 10.5 mg/dL 04/10/2025 4:20 AM EDT [facility] BUN/Creatinine Ratio 20.6 7.0 - 25.0 04/10/2025 4:20 AM EDT [facility] Anion Gap 8.1 5.0 - 15.0 mmol/L 04/10/2025 4:20 AM EDT [facility] eGFR 113.2 >60.0 mL/min/1.7 3 04/10/2025 4:20 AM EDT [facility] Blood Venipuncture / Unknown 04/10/2025 3:46 AM EDT 04/10/2025 3:52 AM EDT Narrative [facility] - 04/10/2025 4:20 AM [...] Final Resul t [facility]
[address] [place] [address], * Wound Culture - Swab, Leg, Right (04/08/2025 3:40 PM EDT) Only the most recent of3 resultswithin the time period is included. Wound Culture No growth at 3 days ALIZA 04/11/2025 10:40 AM EDT [facility] Gram Stain Few (2+) WBCs seen 04/11/2025 10:40 AM EDT [facility] Gram Stain No organisms seen 04/11/2025 10:40 AM EDT [facility] Swab Structure of right lower limb / Unknown 04/08/2025 3:40 PM EDT 04/08/2025 8:05 PM EDT Sushil Dean Jr., MD MICROBIOLOGY - GENERAL ORDERABLES Final Result Performing Organization Address City/[facility]/ZIP Co de Phone Number [facility]
[address] [place] [address], [facility]
[address] [place] [address], [place] [phone] * Anaerobic Culture - Swab, Leg, Right (04/08/2025 3:40 PM EDT) Only the most recent of4 resultswithin the time period is included. Anaerobic Culture No anaerobes isolated at 5 days ALIZA 04/13/2025 7:24 AM EDT [facility] Swab Structure of right lower limb / Unknown 04/08/2025 3:40 PM EDT 04/08/2025 8:05 PM EDT Sushil Dean Jr., MD MICROBIOLOGY - GENERAL ORDERABLES Final Result Performing Organization Address [facility] Co de Phone Number [facility]
[address] [place] [address], * Scan Slide (04/08/2025 8:41 AM EDT) [...] Final R esult Performing Organization Address City/[facility]/ZIP Co de Phone Number [facility]
[address] [place] [address], [place] [phone] * FL C Arm During Surgery (04/07/2025 9:32 PM EDT) Narrative SYSTEMGENERATED, DOCUMENTATION - 04/07/2025 9:38 PM EDT This procedure was auto-finalized with no dictation required. us Sushil Dean Jr., MD IMG FLUOROSCOPY ORDERAB LES Final Result * Tissue / Bone Culture - Tissue, Leg, Right (04/07/2025 9:13 PM EDT) Tissue Culture No growth at 3 days ALIZA 04/11/2025 10:36 AM EDT [facility] Gram Stain Rare (1+) WBCs seen 04/11/2025 10:36 AM EDT [facility] Gram Stain No organisms seen 04/11/2025 10:36 AM EDT [facility] Tissue Structure of right lower limb / Unknown 04/07/2025 9:13 PM EDT 04/08/2025 4:54 AM EDT us Sushil Dean Jr., MD MICROBIOLOGY - GENERAL ORDERABLES Final Result [facility]
[address] [place] [address], [facility]
[address] [place] [address], * BH AN ETT AIRWAY (04/07/2025 8:44 [...] Buen[place]ro 04/07/2025 9:58 AM EDT Workstation ID: [id number] Narrative 04/07/2025 9:58 AM EDT MRI TIBIA [...] Buenrostro 04/07/2025 9:58 AM EDT Workstation ID: [id number] Sushil Dean Jr., MD IMG MRI ORDERABLES Mary Beth l Result * Potassium (04/06/2025 7:16 PM EDT) Potassium 4.0 3.5 - 5.2 mmol/L 04/06/2025 7:53 PM EDT [facility] Blood Venipuncture / Unknown 04/06/2025 7:16 PM EDT 04/06/2025 7:35 PM EDT Jason Álvarez DO LAB BLOOD ORDERABLES Final Resul t Performing Organization Address City/[facility]/ZIP Co de Phone Number [facility]
[address] [place] [address], * CK (04/05/2025 12:15 PM EDT) Creatine Kinase 140 20 - 200 U/L 04/05/2025 1:31 PM EDT [facility] Blood Venipuncture / Unknown 04/05/2025 12:15 PM EDT 04/05/2025 1:03 PM EDT Carlton Mead MD LAB BLOOD ORDERABLES Final R esult Performing Organization Address City/[facility]/ZIP Co de Phone Number [facility]
[address] [place] [address], * (ABNORMAL) aPTT (04/05/2025 3:54 AM EDT) [...] 0.5 U/ml are 60 to 70 seconds. ValensumD LAB BLOOD ORDERABLES Final R esult Performing Organization Address City/[facility]/ZIP Co de Phone Number [facility]
[address] [place] [address], * (ABNORMAL) Protime-INR (04/05/2025 12:18 AM EDT) Pathologist [facility] Protime 15.9(H) 12.2 - 15.3 Seconds 04/05/2025 12:53 AM EDT [facility] INR 1.19(H) 0.89 - 1.12 04/05/2025 12:53 AM EDT [facility] Blood Venipuncture / Unknown 04/05/2025 12:18 AM EDT 04/05/2025 12:37 AM EDT Influx PharmD LAB BLOOD ORDERABLES Final R esult Performing Organization Address City/[facility]/ZIP Co de Phone Number [facility]
[address] [place] [address], * POC Creatinine (04/04/2025 2:49 PM EDT) Pathologist [facility] Creatinine 1.10 0.60 - 1.30 mg/dL 04/07/2025 7:14 PM EDT [facility] Comment:Serial Number: [id number] Venous Blood 04/04/2025 2:49 PM EDT 04/07/2025 7:14 PM EDT Jason Álvarez DO POINT OF CARE TEST ORDERABLES Fi nal Result Performing Organization Address [facility] Co de Phone Number [facility]
[address] [place] [address], * (ABNORMAL) Sedimentation Rate (04/04/2025 2:47 PM EDT) Sed Rate 51(H) 0 - 15 mm/hr 04/04/2025 3:06 PM EDT [facility] Blood Venipuncture / Unknown 04/04/2025 2:47 PM EDT 04/04/2025 2:52 PM EDT Mario Crowley LAB BLOOD ORDERABLES Fin al Result Performing Organization Address [facility] de Phone Number [facility]
[address] [place] [address], * (ABNORMAL) C-reactive Protein (04/04/2025 2:47 PM EDT) C-Reactive Protein 8.57(H) 0.00 - 0.50 mg/dL 04/04/2025 3:26 PM EDT [facility] Blood Venipuncture / Unknown 04/04/2025 2:47 PM EDT 04/04/2025 2:52 PM EDT Mario Crowley DO LAB BLOOD ORDERABLES Fin al Result Performing Organization Address [facility] Co de Phone Number [facility]
[address] [place] [address], from Last 3 Months Additional Health Concerns [...] Of Support Discussed With: Patient Care Teams Supervisor Public Message Service Relationship Specialty Start Date End Date Provider, No Known [facility] [place] [address] PCP - General 05/09/23
--- OUTSIDE RECORDS SUMMARY | 2025-04-24 08:21 | XMS_ITS | Encounter Summary ---
Author Organization Healthcare Address [address] [place] [address] Care Team Providers Care Coding Tech Name Role Phone Unavailable Primary Care Provider Unavailabl e Encounter Details Date Type Department Care Team (Late st Contact Info) Description 10/19/2022 Lab Requisition [facility] [address] [place] [address] Sushil Dean MD [address] [place] [address] Encounter for general adult medical examination without [...] by MALDI tof mass spectrometry using the ooma database and is for research use only. The organism value for this result has been updated. These results have been appended to the previously preliminary verified report. Bone Specimen from bone / Unknown 10/19/2022 5:17 PM EDT 10/19/2022 9:49 PM EDT Sushil Dean MD LAB MICROBIOLOGY - GENERAL O RDERABLES Final Result Performing Organization Address [facility] de Phone Number [facility] [address] [place] [address] * Bone Culture and Gram Stain (10/19/2022 5:17 PM EDT) Culture No growth at day 4 2022 8:14 AM EDT [facility] Gram Stain Result Few Polymorphonuclear leukocytes 10/23/2022 8:14 AM EDT [facility] Gram Stain Result No organisms seen 10/23/2022 8:14 AM EDT [facility] Bone Specimen from bone / Unknown 10/19/2022 5:17 PM EDT 10/19/2022 9:49 PM EDT Sushil Dean MD LAB MICROBIOLOGY - GENERAL O RDERAADDI Final Result Performing Organization Address [facility] Phone Number [facility] [address] [place] [address] documented in this encounter Visit Diagnoses Diagnosis Encounter for general adult medical examination without abnormal findings documented in this encounter
--- OUTSIDE RECORDS SUMMARY | 2025-04-24 08:21 | XMS_ITS | Encounter Summary ---
Author Organization Healthcare Address [address] [place] [address] Care Team Providers Care Sight Effects Specialist Name Role Phone Unavailable Primary Care Provider Unavailabl e Encounter Details Date Type Department Care Team (Late st Contact Info) Description 05/13/2023 Lab Requisition [facility] [address] [place] [address] Sushil Dean MD [address] [facility]. [address] [place] [address] Encounter for general adult medical examination without [...] O RDERABLES Final Result Performing Organization Address [facility] Co de Phone Number [facility] [address] [place] [address] * Anaerobic Culture (05/13/2023 9:17 AM EDT) Culture No growth at day 4 05/20/2023 10:35 AM EST [facility] Bone 05/13/2023 9:17 AM EDT 05/13/2023 1:25 PM EDT us Sushil Dean MD LAB MICROBIOLOGY - GENERAL O RDERABLES Final Result Performing Organization Address [facility] de Phone Number [facility] [address] [place] [address] * Bone Culture and Gram Stain (05/13/2023 [...] O RDERABLES Final Result Performing Organization Address [facility] de Phone Number [facility] [address] [place] [address] documented in this encounter Visit Diagnoses Diagnosis Encounter for general adult medical examination without abnormal findings documented in this encounter
--- OUTSIDE RECORDS SUMMARY | 2025-04-24 08:21 | XMS_ITS | Encounter Summary ---
Author Organization Healthcare Address [address] [place] [address] Care Team Providers Care Mutton Puncher Name Role Phone Unavailable Primary Care Provider Unavailabl e Encounter Details Date Type Department Care Team (Late st Contact Info) Description 07/20/2022 Lab Requisition [facility] [address] [place] [address] Sushil Dean MD [address] [place] [address] Encounter for general adult medical examination without [...] at day 4 07/27/2022 11:32 AM EST [facility] Bone Specimen from bone / Unknown 07/20/2022 1:36 PM EST 07/20/2022 5:52 PM EST us Sushil Dean MD LAB MICROBIOLOGY - GENERAL O RDERABLES Final Result Performing Organization Address City/[facility] Co de Phone Number [facility] [address] [place] [address] * Bone Culture and Gram Stain (07/20/2022 1:36 PM EST) Culture No growth at day 4 2022 9:16 AM EST [facility] Gram Stain Result Rare Polymorphonuclear leukocytes 07/24/2022 9:16 AM EST [facility] Gram Stain Result No organisms seen 07/24/2022 9:16 AM EST [facility] Bone Specimen from bone / Unknown 07/20/2022 1:36 PM EST 07/20/2022 5:52 PM EST us Sushil Dean MD LAB MICROBIOLOGY - GENERAL O RDERABLES Final Result Performing Organization Address City/[facility] Co de Phone Number [facility] [address] [place] [address] documented in this encounter Visit Diagnoses Diagnosis Encounter for general adult medical examination without abnormal findings documented in this encounter
--- OUTSIDE RECORDS SUMMARY | 2025-04-24 08:21 | XMS_ITS | Patient Health Record ---
[facility] [address] [facility] [address] [place] [id number] Care Team Providers Care Marine Geologist Name Role Phone Zeeshan Salazar Primary Care [...] W/U Status Risk Notes Problem Essential hypertension (30541974) HTN [Hypertension] (401.9) Active confirmed appears resolved Problem Hypothyroidism (51050240) Hypothyroidism NOS (244.9) Active confirmed Problem Hyperlipidemia (75064830) Hyperlipidemia (272.4) Active confirmed Problem Constipation (76085708) Constipation, unspecified constipation type (K59.00) Active confirmed Problem History of pulmonary embolism on long-term anticoagulation therapy (42037922144535361 ) Hx pulmonary embolism (Z86.711) Active confirmed Problem Long-term current use of anticoagulant (601888580) Current use of termite helper anticoagulation (Z79.01) Active confirmed Problem Adjustment disorder with anxious mood (75677187) Adjustment disorder with anxious mood (F43.22) Active confirmed Problem History of pulmonary embolus (361704909) History of pulmonary embolus (PE) (Z86.711) Active confirmed Problem Methicillin resistant Staphylococcus aureus infection (disorder) (214443825) Infection of wound due to methicillin resistant Staphylococcus aureus (MRSA) (A49.02) Active confirmed Problem Arthritis of knee (764251673) Arthritis of knee (M17.10) Active confirmed Problem Amputated below knee (575241700) Status post below knee amputation of right lower extremity (Z89.511) Active confirmed Problem Gastroesophageal reflux disease (326828830) Gastroesophageal reflux disease, unspecified whether esophagitis present [...]
--- OUTSIDE RECORDS SUMMARY | 2025-04-24 08:21 | XMS_ITS | Encounter Summary ---
Author Organization [facility] Address [address] [place] [address] Care Team Providers Care Apiculturist Name Role Phone Provider, No Known Primary [...] Risk Indicated 04/04/2025 2:25 PM EDT Cherri Grmim RN * [place] Suicide Severity Rating Scale (Screener/Recent Self-Report) Question [...] documented as of this encounter Care Teams Apiculturist Relationship Specialty Start Date End Date Provider, No Known [facility] [place] [address] PCP - General 05/09/23 documented as of this encounter
--- OUTSIDE RECORDS SUMMARY | 2025-04-24 08:21 | XMS_ITS | Encounter Summary ---
Author Organization Healthcare Address [address] [place] [address] Care Team Providers Care Apartment Rental Clerk Name Role Phone Unavailable Primary Care Provider Unavailabl e Encounter Details Date Type Department Care Team (Late st Contact Info) Description 08/12/2022 Lab Requisition [facility] [address] [place] [address] Sushil Dean MD [address] [place] [address] Encounter for general adult medical examination without [...] has been identified using the FDA Approved [employer] [place] System The organism value for this [...] ERIC Final Result Performing Organization Address City/[facility] de Phone Number [facility]ALTHCARE LAB [address] [place] [address] * Bone Culture and Gram Stain (08/12/2022 [...] RDERABLES Final Result Performing Organization Address City/[facility] de Phone Number [facility] [address] [place] [address] documented in this encounter Visit Diagnoses Diagnosis Encounter for general adult medical examination without abnormal findings documented in this encounter
--- OUTSIDE RECORDS SUMMARY | 2025-04-24 08:21 | XMS_ITS | Encounter Summary ---
Author Organization Healthcare Address [address] [place] [address] Care Team Providers Care Anesthetist Name Role Phone Unavailable Primary Care Provider Unavailabl e Encounter Details Date Type Department Care Team (Late st Contact Info) Description 07/20/2022 Lab Requisition [facility] [address] [place] [address] Sushil Dean MD [address] [place] [address] Encounter for general adult medical examination without [...]
--- OUTSIDE RECORDS SUMMARY | 2025-04-24 08:21 | XMS_ITS | Encounter Summary ---
Author Organization [facility] Address [address] [place] [address] Care Team Providers Care Clinical Services Director Name Role Phone Unavailable Primary Care Provider Unavailabl e Encounter Details Date Type Department Care Team (Late st Contact Info) Description 10/03/2022 Lab Requisition [facility] [address] [place] [address] Dalila Cox MD [address] [place], [place] [phone] Encounter for general adult medical examination without [...] Culture Neelima albicans(A) 10/05/2022 11:58 AM EDT [facility] Comment: This result was determined by MALDI tof Mass spectrometry. This assay was developed and its performance characteristics determined by [facility] as appropriate for clinical purposes. [...] Edited Result - Final [facility] [address] [place] [address] documented in this encounter Visit Diagnoses Diagnosis Encounter for general adult medical examination without abnormal findings documented in this encounter
--- OUTSIDE RECORDS SUMMARY | 2025-04-24 08:21 | XMS_ITS | Encounter Summary ---
Author Organization Healthcare Address [address] [place] [address] Care Team Providers Care Chairman & Chief Executive Officer Name Role Phone Unavailable Primary Care Provider Unavailabl e Encounter Details Date Type Department Care Team (Late st Contact Info) Description 10/01/2022 Lab Requisition [facility] [address] [place] [address] Sushil Dean MD [address] [facility] [place] [address] Encounter for general adult medical examination without [...] has been identified using the FDA Approved Silicon Cloudyper CA System The organism value for this [...] 10/04/2022 2:17 PM EDT Refer to culture [id number] FOR SUSCEPTIBILITIES ON NEELIMA ALBICANS us Sushil Dean MD LAB MICROBIOLOGY - GENERAL O RDERABLES Final Result [facility] [address] [place] [address] documented in this encounter Visit Diagnoses Diagnosis Encounter for general adult medical examination without abnormal findings documented in this encounter
--- OUTSIDE RECORDS SUMMARY | 2025-04-24 08:22 | XMS_ITS | Encounter Summary ---
Author Organization Healthcare Address [address] [place] [address] Care Team Providers Care Entry Operator Name Role Phone Unavailable Primary Care Provider Unavailabl e Encounter Details Date Type Department Care Team (Late st Contact Info) Description 05/17/2023 Lab Requisition [facility] [address] [place] [address] Sushil Dean MD 216 [facility] [address] [place] [address] Encounter for general adult medical examination without [...] O RDERABLES Final Result Performing Organization Address City/[facility] Co de Phone Number [facility] [address] [place] [address] * Bone Culture and Gram Stain (05/17/2023 [...] RDERABLES Final Result Performing Organization Address [facility] Co de Phone Number [facility] [address] [place] [address] documented in this encounter Visit Diagnoses Diagnosis Encounter for general adult medical examination without abnormal findings documented in this encounter
--- OUTSIDE RECORDS SUMMARY | 2025-04-24 08:22 | XMS_ITS | Clinical Summary ---
Author Organization Healthcare Address [address] [place] [address] Care Team Providers Care Roto Gravure Press Operator Name Role Phone Unavailable Primary [...]
[2025-04-24 08:32] VITALS: BP 114/68; PULSE 70; RESP 18; TEMP 36.4; O2SAT 100
[2025-04-24 09:11] VITALS: BP 105/61; PULSE 75
== END 2025-04-24 23:59 | disposition home or self-care (01) ==
LOC: INF 08:15
PROVIDERS: PCP Nurse Practitioner Family; Visit Provider Internal Medicine Infectious Disease
DX: L03.115 Cellulitis of right lower limb (principal); L02.415 Cutaneous abscess of right lower limb; Z89.511 Acquired absence of right leg below knee; D68.2 Hereditary deficiency of other clotting factors; I10 Essential (primary) hypertension; E78.5 Hyperlipidemia, unspecified; F39 Unspecified mood [affective] disorder
CPT/HCPCS: 96365; J0878

== ENCOUNTER 2025-04-25 13:20 | Outpatient (CLI) | payer MEDICARE, SELFPAY ==
--- OUTSIDE RECORDS SUMMARY | 2023-10-25 12:15 | XMS_ITS ---
Author Organization [facility] Address [address] [place] [address] YVON Sykes [phone] Care Team Providers Care Glass Sander Name Role Phone Zeeshan Salazar Primary Care Provider Macario Burkett [phone] Allergies No Known Allergies REASON FOR VISIT check up BP Encounters Encounter Location Date Provider Diagnosis [facility] [address] [place] [address] YVON Sykes [phone] 10/25/2023 Macario Burkett Plan Of Treatment No Information Progress Notes * MITCHELLWonDOB: [birth year] (44 yo M)Acc No.[id number]:10/25/2023 Progress Notes Patient: Won SPANN Provider: Colleen Burkett M.D. :1980 A ge:43 Y S ex:Male Date:10/25/2023 Address:[address] [place] [address] Onel THACKER [id number] Pcp:Zeeshan Salazar Subjective: * Chief Complaints: * [...] alive, hypertension. M aternal Grand Mother: HBP, [place]. Brother with HBP. * Social History: C URRENT TOBACCO USE S moking Status: Patient does NOT smoke. C affeine: no. Alcohol: No. * Allergies: N .K.D.A. Objective: * Vitals: Assessment: Plan: * Treatment: * Images: Billing Information: * Visit Code: * Procedure Codes: * Electronic signature of Micaela Burkett MD on 04/25/2025 at 01:24 PM EDT Sign off status: Pending * Provider: Colleen Burkett M.D. Date: 0 10/25/2023 Generated for Nany jorgensen/Elaine/Lisbethitting on: 1 01:24 PM EDT
--- OUTSIDE RECORDS SUMMARY | 2023-12-12 05:00 | XMS_ITS ---
Author Organization Ayaka Address 1210 [facility] 36 [facility] 2C [place] [phone] Care Team Providers Care Cytogenetic Technologist Name Role Phone Zeeshan Salazar Primary Care Provider [phone] Macario Burkett [phone] REASON FOR VISIT 6 Month Check Up Encounters Encounter Location Date Provider Diagnosis [place] 1210 [facility] [address] [place] [phone] 12/12/2023 Macario Burkett Plan Of Treatment No Information Progress Notes * Won MEDRANO ZeeshanDOB: [birth year] (44 yo M)Acc No.[id number]:12/12/2023 Progress Notes Patient: Won SPANN Provider: Colleen Burkett M.D. :1980 A ge:43 Y S ex:Male Date:12/12/2023 Address:[address] [place] [address] [id number] Pcp:Zeeshan Salazar Subjective: * Chief Complaints: * 1 . 6 Month Check Up. * Medical History: Objective: * Vitals: Assessment: Plan: * Treatment: * Images: Billing Information: * Visit Code: * Procedure Codes: * Electronic signature of Micaela Burkett MD on 04/25/2025 at 01:24 PM EDT Sign off status: Pending * Provider: Colleen Burkett M.D. Date: 12/12/2023 Generated for Nany jorgensen/Elaine/Pro on: 1 01:24 PM EDT
--- OUTSIDE RECORDS SUMMARY | 2025-04-04 16:10 | XMS_ITS | Encounter Summary ---
Author Organization [facility] Address [address] [place] [address] Care Team Providers Care Psychologist Military Personnel Name Role Phone Provider, No Known Primary Care Provider Unavail able Reason for Visit * Reason Comments Leg Swelling * Auth/Cert Specialty Diagnoses / Procedures Referred By Contlevy t Referred To Contact Diagnoses Right BKA infection Referral ID Status Reason Start Date Expiration Date Visits Re quested Visits Authorized [id number] 1 1 Encounter Details Date Type Department Care Team (Late st Contact Info) Description 04/04/2025 4:10 PM EDT - 04/11/2025 1:58 PM EDT Hospital Encounter [address] [place] [address] Mario Crowley, [address] [place] [address] Leonora Shepherd MD [address] [address] Jason Álvarez DO [address] [address] Jadyn Richardson DO [address] [address] Cellulitis of right lower extremity (Primary Dx); Below-knee amputation of right lower extremity, initial encounter; Right BKA infection Discharge Disposition: Home or Self Care Social History Tobacco Use Types Packs/Day Years Used Date Smoking Tobacco: Never Smokeless Tobacco: Never Tobacco Cessation:Counseling Given: Not Answered Alcohol Use Standard Drinks/Week Comments Not Currently 0 (1 standard drink = 0.6 oz pur e alcohol) [facility] Utilities Answer Date Recorded In the past 12 months has th e [employer], gas, oil, or water company threatened to [...] or training? Not on file Preferred Language Kyrgyz 04/07/2025 Sex and Gender Information Value Date [...] 2:25 PM EDT Cherri Grimm RN * Mereta Suicide Severity Rating Scale (Screener/Recent Self-Report) Question [...] from the original note were not included. [facility] Medicine Services DISCHARGE SUMMARY Patient Name: [...] Date/Time Wound Culture - Swab, Leg, Right [[id number]] (Abnormal) (Susceptibility) Collected: 04/07/252106 Lab Status: Final [...] Units Date/Time FL C Arm During Surgery [[id number]] Resulted: 04/07/252137 Updated: 04/07/252137 Narrative: This procedure was auto-finalized with no dictation required. MRI Tibia Fibula Right With & Without Contrast [[id number]] Collected: 04/07/25 0938 Updated: 04/07/25 1001 Narrative: [...] Buenrostro 04/07/2025 9:58 AM EDT Workstation ID: [id number] MRI Tibia Fibula Right With & Without Contrast [[id number]] Collected: 04/04/252256 Updated: 04/04/252302 Narrative: MRI TIBIA [...] represent a small area of phlegmonous change (lhrwto03 image 10) measuring approximately 1.6 cm which [...] MD 04/04/2025 11:00 PM EDT Workstation ID: [id number] Pending Labs Order Current Status Fungus Culture [...] FLOMAX 1 capsule, Nightly Stop These Medications [facility] Dig[facility]ive [facility] capsule doxycycline 100 MG tablet Commonly known [...] Male) Date of 1980 Social Security Number [id number] [place] [id number] Catholic Unknown Marital Status Unknown Admission Date 04/04/2025 Admission Type Emergency Admitting Provider Jadyn Richardson DO Attending Provider Jadyn Richardson DO Department, Room/Bed [address], S565/1 Discharge Date Discharge Disposition Discharge [...] Group [place] [id number] Payor Plan Address Payor Plan Phone Number Payor Plan Fax Number Effective Dates [employer] [address] [address] 08/10/2023 - None Entered [place] [address] Subscriber Name Subscriber Date Member ID WON DENNIS 1980 [id number] Emergency Contacts News Reel Cameraman (Rel.) Home Phone Work Phone Mobile Phone Avril Dennis (Spouse) -- -- [phone] LewRobert (Relative) -- -- [phone] [facility] [address] Patient: ROOM: [facility] Won Dennis [address] [facility] [address] : 1980 SSN: [id number] Sex: M PCP: Provider, No Known Emergency Contact Information Name Relation Home Work Mobile Avril Dennis Spouse [phone] Other Contacts Name Relation Home Work Mobile Robert Hackett Relative [phone] INSURANCE PA[employer]OR [employer]AN [employer] # SUBSCRIBER ID Primary: Secondary: MEDICARE [employer] [id number] Admitting Diagnosis: 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] Order Date: Apr 09, 2025 Case Management [employer] Automatic Consult (Order ID: [id number]) Diagnosis: Priority: Routine Expected Date: Expiration Date: Interval: Once Count: Comments: Outpatient orders: 1. Outpatient intravenous antibiotic therapy: Daptomycin 800 mg IV daily to be supplied by [facility] 2. Home health to perform [...] INFECTIOUS DISEASE Progress Note Won Dennis 1980 [id number] Date of Consult: 04/10/2025 Admission Date: 04/04/2025 [...] which prompted him to seek treatment at [facility]. He is known to Dr. Dean. [...] wound 05/09/25. HDS, on Heparin gtt. Currently [facility] has been asked to manage the [...] Jr., MD, 20 mg at 04/09/25906 heparin 67842 units/250 mL (100 units/mL) in 0.45 % [...] mL 0.9% NS IVPB ([facility]) Ordering Provider: Maroi Crowley, DO 20 mg/kg ?? 134 kg [...] Units Date/Time FL C Arm During Surgery [[id number]] Resulted: 04/07/252137 Updated: 04/07/252137 Narrative: This procedure was auto-finalized with no dictation required. MRI Tibia Fibula Right With & Without Contrast [[id number]] Collected: 04/07/25 0938 Updated: 04/07/25 1001 Narrative: [...] Chitra 04/07/2025 9:58 AM EDT Workstation ID: [id number] Impression: Recurrent Right BKA stump abscess/cellulitis- this [...] discussed his disposition with the pharmacist at [facility] today. I will sign off Outpatient orders: 1. Outpatient intravenous antibiotic therapy: Daptomycin 800 mg IV daily to be supplied by [facility] 2. Home health to perform weekly [...] Time: 04/10/251323 Signed Expand All Collapse All [facility] Medicine Services PROGRESS NOTE Patient Name: [...] Date/Time Wound Culture - Swab, Leg, Right [[id number]] (Abnormal) (Susceptibility) Collected: 04/07/252106 Lab Status: Final [...] Row Name 04/06/25 1143 Sit-Stand Transfer Sit-Stand Cottle (Transfers) modified independence -LM Comment, (Sit-Stand Transfer) Pt stood from recliner. Not holding onto walker, pt able to pull his pants up while balancing on his one leg. -LM Row Name 04/06/25 1143 Gait/Stairs (Locomotion) Cottle Level (Gait) modified independence -LM Distance in [...] Nurse Physical Therapy Education Title: PT OT CONTROL SUPERVISOR Therapies (Done) Topic: Physical Therapy (Done) Point: [...] Description Service Date Service Provider Modifiers Qty [id number] PT EVAL LOW COMPLEXITY 3 04/06/2025 Susan [...] mg Daily 04/05/2025 -- Route: Oral heparin 23843 units/250 mL (100 units/mL) in 0.45 % [...] -- Admin Instructions: Open Order & Select [facility] Electrolyte Replacement Protocol Algorithm to View Details [...] Dean MD April 21 vs April 22 [facility] [address], [address] [facility], [address] Please schedule at [phone] VONDA Garcia 04/11/25 08:32 EDT Cosigned by Sushil Dean Jr., MD at 04/19/2025 10:33 AM EDT Associated attestation - Sushil Dean Jr., MD - 04/19/2025 10:33 AM EDT I have reviewed this documentation and agree. * Rosario Hill APRN - 04/10/2025 1:24 PM EDT Images from the original note were not included. [facility] Medicine Services PROGRESS NOTE Patient Name: [...] Date/Time Wound Culture - Swab, Leg, Right [[id number]] (Abnormal) (Susceptibility) Collected: 04/07/252106 Lab Status: Final [...] mg Daily 04/05/2025 -- Route: Oral heparin 72283 units/250 mL (100 units/mL) in 0.45 % [...] -- Admin Instructions: Open Order & Select [facility] Electrolyte Replacement Protocol Algorithm to View Details [...] -- Admin Instructions: Open Order & Select [facility] Electrolyte Replacement Protocol Algorithm to View Details [...] -- Admin Instructions: Open Order & Select [facility] Electrolyte Replacement Protocol Algorithm to View Details [...] Dean MD April 21 vs April 22 [facility] [address], [address] [facility], [address] Please schedule at [phone] VONDA Garcia 04/10/25 09:01 EDT Cosigned by Sushil Dean Jr., MD at 04/19/2025 10:33 AM EDT Associated attestation - Sushil Dean Jr., MD - 04/19/2025 10:33 AM EDT I have reviewed this documentation and agree. * Carlton Mead MD - 04/10/2025 7:38 AM EDT Images from the original note were not included. INFECTIOUS DISEASE Progress Note Won Dennis 1980 [id number] Date of Consult: 04/10/2025 Admission Date: 04/04/2025 [...] which prompted him to seek treatment at [facility]. He is known to Dr. Dean. [...] wound 05/09/25. HDS, on Heparin gtt. Currently [facility] has been asked to manage the [...] Jr., MD, 20 mg at 04/09/25906 heparin 23052 units/250 mL (100 units/mL) in 0.45 % [...] vancomycin 2750 mg/500 mL 0.9% NS IVPB ([facility]) Ordering Provider: Mario Crowley, DO 20 mg/kg [...] Units Date/Time FL C Arm During Surgery [[id number]] Resulted: 04/07/252137 Updated: 04/07/252137 Narrative: This procedure was auto-finalized with no dictation required. MRI Tibia Fibula Right With & Without Contrast [[id number]] Collected: 04/07/25 0938 Updated: 04/07/25 1001 Narrative: [...] Buenrostro 04/07/2025 9:58 AM EDT Workstation ID: [id number] Impression: Recurrent Right BKA stump abscess/cellulitis- this [...] discussed his disposition with the pharmacist at [facility] today. I will sign off Outpatient orders: 1. Outpatient intravenous antibiotic therapy: Daptomycin 800 mg IV daily to be supplied by [facility] 2. Home health to perform weekly [...] 07:38 EDT * Yaya Hamiltonn, [facility] - 04/10/2025 7:17 AM EDT [...] from the original note were not included. [facility] Medicine Services PROGRESS NOTE Patient Name: [...] Date/Time Wound Culture - Swab, Leg, Right [[id number]] (Abnormal) Collected: 04/07/252106 Lab Status: Preliminary result [...] Preeti 04/09/25 * Larisa Hamilton [facility] - 04/09/2025 11:36 AM EDT [...] mg Daily 04/05/2025 -- Route: Oral heparin 17728 units/250 mL (100 units/mL) in 0.45 % [...] -- Admin Instructions: Open Order & Select [facility] Electrolyte Replacement Protocol Algorithm to View Details [...] -- Admin Instructions: Open Order & Select [facility] Electrolyte Replacement Protocol Algorithm to View Details [...] -- Admin Instructions: Open Order & Select [facility] Electrolyte Replacement Protocol Algorithm to View Details [...] in 2 weeks for incision check, radiographs [facility] [address], [address] [facility], [address] Please schedule at [phone] VONDA Garcia 04/09/25 09:18 EDT Cosigned by Sushil Dean Jr., MD at 04/19/2025 10:33 AM EDT Associated attestation - Sushil Dean Jr., MD - 04/19/2025 10:33 AM EDT I have reviewed this documentation and agree. * Carlton Mead MD - 04/09/2025 8:25 AM EDT Images from the original note were not included. INFECTIOUS DISEASE Progress Note Won Dennis 1980 [id number] Date of Consult: 04/09/2025 Admission Date: 04/04/2025 [...] which prompted him to seek treatment at [facility]. He is known to Dr. Dean. [...] wound 05/09/25. HDS, on Heparin gtt. Currently [facility] has been asked to manage the [...] IRRIGATION; Surgeon: Sushil Dean Jr., MD; Location: [facility]; Service: Orthopedics; Laterality: Right; PLACEMENT OF WOUND VAC Right 04/07/2025 Procedure: WOUND VACUUM ASSISTED CLOSURE; Surgeon: Sushil Dean Jr., MD; Location: [facility]; Service: Orthopedics; Laterality: Right; History reviewed. [...] tablet 20 mg, 20 mg, Oral, Daily, uSshil Dean Jr., MD, 20 mg at 04/08/25 0800 heparin 69442 units/250 mL (100 units/mL) in 0.45 % [...] Units Date/Time FL C Arm During Surgery [[id number]] Resulted: 04/07/252137 Updated: 04/07/252137 Narrative: This procedure was auto-finalized with no dictation required. MRI Tibia Fibula Right With & Without Contrast [[id number]] Collected: 04/07/2538 Updated: 04/07/25 1001 Narrative: MRI [...] Buenrostro 04/07/2025 9:58 AM EDT Workstation ID: [id number] Impression: Recurrent Right BKA stump abscess/cellulitis- this [...] mg IV daily to be supplied by [facility] 2. Home health to perform weekly PICC line dressing changes with a Biopatch or Tegaderm CHG gel dressing 3. CBC, CMP, ESR, CRP, and CPK weekly-forward results to Dr. Rubens Torres 4. Follow-up with Dr. Rubens Torres in the next 1-2 weeks 5. Home health orders to be forward to to Dr. Rubnes Torres This visit included the following complex service elements: Complex medical decision-making associated with antimicrobial prescribing. In-depth chart review with high level synthesis for complex diagnoses. Managed infection treatment protocol associated with transitions of care for this complex patient. Carlton Mead MD 04/09/2025 08:25 EDT * Jason Álvarez DO - 04/08/2025 1:47 PM EDT Images from the original note were not included. [facility] Medicine Services PROGRESS NOTE Patient Name: [...] Buenrostro 04/07/2025 9:58 AM EDT Workstation ID: [id number] I have personally reviewed the therapy plans: [...] DO 04/08/25 * Larisa Hamilton [facility] - 04/08/2025 11:48 AM EDT [...] -- Admin Instructions: Open Order & Select [facility] Electrolyte Replacement Protocol Algorithm to View Details [...] mg Daily 04/05/2025 -- Route: Oral heparin 09941 units/250 mL (100 units/mL) in 0.45 % [...] -- Admin Instructions: Open Order & Select [facility] Electrolyte Replacement Protocol Algorithm to View Details [...] -- Admin Instructions: Open Order & Select [facility] Electrolyte Replacement Protocol Algorithm to View Details [...] -- Admin Instructions: Open Order & Select [facility] Electrolyte Replacement Protocol Algorithm to View Details [...] INFECTIOUS DISEASE Progress Note Won Dennis 1980 [id number] Date of Consult: 04/08/2025 Admission Date: 04/04/2025 [...] which prompted him to seek treatment at [facility]. He is known to Dr. Dean. [...] wound 05/09/25. HDS, on Heparin gtt. Currently [facility] has been asked to manage the [...] IRRIGATION; Surgeon: Sushil Dean Jr., MD; Location: [facility]; Service: Orthopedics; Laterality: Right; PLACEMENT OF WOUND VAC Right 04/07/2025 Procedure: WOUND VACUUM ASSISTED CLOSURE; Surgeon: Sushil Dean Jr., MD; Location: [facility]; Service: Orthopedics; Laterality: Right; History reviewed. [...] Jr., MD, 20 mg at 04/07/25950 heparin 05592 units/250 mL (100 units/mL) in 0.45 % [...] Heparin, , Not Applicable, Continuous PRN, Sushil Daen Jr., MD Phosphorus Replacement - Follow Nurse [...] Units Date/Time FL C Arm During Surgery [[id number]] Resulted: 04/07/252137 Updated: 04/07/252137 Narrative: This procedure was auto-finalized with no dictation required. 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 (Treated by ID in [place] Dr. Harris). Dr. Torres treated him with [...] from the original note were not included. [facility] Medicine Services PROGRESS NOTE Patient Name: [...] Buenrostro 04/07/2025 9:58 AM EDT Workstation ID: [id number] I have personally reviewed the therapy plans: [...] DO 04/07/25 * Larisa Hamilton [facility] - 04/07/2025 11:56 AM EDT [...] INFECTIOUS DISEASE Progress Note Won Dennis 1980 [id number] Date of Consult: 04/07/2025 Admission Date: 04/04/2025 [...] which prompted him to seek treatment at [facility]. He is known to Dr. Dean. [...] wound 05/09/25. HDS, on Heparin gtt. Currently [facility] has been asked to manage the [...] Application, 1 Application, Topical, Q12H, Ayah Valentin, ASSEMBLY MECHANIC, 1 Application at 04/06/252101 DAPTOmycin (CUBICIN) 800 [...] Shepherd MD, 20 mg at 04/06/25899 heparin 23632 units/250 mL (100 units/mL) in 0.45 % NaCl infusion, 18 Units/kg/hr, Intravenous, Titrated, Cherri Beatty, [facility], Last Rate: 24.1 mL/hr at [...] With & Without Contrast - In process [[id number]] Resulted: 04/07/25828 Updated: 04/07/25828 This result has not been signed. Information might be incomplete. 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 (Treated by ID in [place] Dr. Harris). Dr. Torres treated him with [...] mg Daily 04/05/2025 -- Route: Oral heparin 46278 units/250 mL (100 units/mL) in 0.45 % [...] -- Admin Instructions: Open Order & Select [facility] Electrolyte Replacement Protocol Algorithm to View Details [...] -- Admin Instructions: Open Order & Select [facility] Electrolyte Replacement Protocol Algorithm to View Details [...] 06:07 EDT * Cherri Beatty [facility] - 04/06/2025 1:47 PM EDT [...] from the original note were not included. [facility] Medicine Services PROGRESS NOTE Patient Name: [...] MD 04/04/2025 11:00 PM EDT Workstation ID: [id number] I have personally reviewed the therapy plans: [...] mg Daily 04/05/2025 -- Route: Oral heparin 52357 units/250 mL (100 units/mL) in 0.45 % [...] -- Admin Instructions: Open Order & Select [facility] Electrolyte Replacement Protocol Algorithm to View Details [...] INFECTIOUS DISEASE follow up. Won Dennis 1980 [id number] Date of Consult: 04/06/2025 Admission Date: 04/04/2025 [...] which prompted him to seek treatment at [facility]. He is known to Dr. Dean. [...] wound 05/09/25. HDS, on Heparin gtt. Currently [facility] has been asked to manage the [...] Application, 1 Application, Topical, Q12H, Ayha Valentin, ASSEMBLY MECHANIC, 1 Application at 04/06/25 0859 DAPTOmycin (CUBICIN) [...] MD, 20 mg at 04/06/25 0900 heparin 08104 units/250 mL (100 units/mL) in 0.45 % NaCl infusion, 18 Units/kg/hr, Intravenous, Titrated, Cherri Beatty [facility], Last Rate: 24.1 mL/hr at [...] Tibia Fibula Right With & Without Contrast [[id number]] Collected: 04/04/252256 Updated: 04/04/252302 Narrative: MRI TIBIA [...] represent a small area of phlegmonous change (pdmtdo94 image 10) measuring approximately 1.6 cm which [...] MD 04/04/2025 11:00 PM EDT Workstation ID: [id number] Impression: 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 (Treated by ID in [place] Dr. Harris). Dr. Torres treated him with [...] 16:00 EDT * Cherri Beatty, [facility] - 04/05/2025 3:01 PM EDT [...] from the original note were not included. [facility] Medicine Services PROGRESS NOTE Patient Name: [...] MD 04/04/2025 11:00 PM EDT Workstation ID: [id number] I have personally reviewed the therapy plans: [...] from the original note were not included. [facility] Medicine Services HISTORY AND PHYSICAL Patient [...] MD 04/04/2025 11:00 PM EDT Workstation ID: [id number] Assessment & Plan Assessment & Plan Won [...] 4FR PICC placed by Rhoda Bonner RN [facility], tip verified by 3CG see LDA. * Sushil Dean Jr., MD - 04/05/2025 8:07 AM EDTAssociated Order(s): IP CONSULT TO ORTHOPEDIC SURGERY [facility], [facility] [address] [place] [address] Orthopedic Consult Patient: Won Dennis Date of [...] was evaluated in the emergency department in [place], was discharged with instructions for follow-up. He [...] tablet by mouth Daily. 04/03/2025 Morning Lactobacillus-Inulin ([facility]) capsule Take 200 mg by mouth Daily. [...] MD 04/04/2025 11:00 PM EDT Workstation ID: [id number] Assessment: Right BKA infection 44-year-old male with [...] DISEASE CONSULT/INITIAL HOSPITAL VISIT Won Dennis 1980 [id number] Date of Consult: 04/05/2025 Admission Date: 04/04/2025 [...] which prompted him to seek treatment at [facility]. He is known to Dr. Dean. [...] wound 05/09/25. HDS, on Heparin gtt. Currently [facility] has been asked to manage the [...] Leonora Shepherd MD, 40 mg at 04/04/25 5719 sennosides-docusate (PERICOLACE) 8.6-50 MG per tablet 2 [...] MD, 20 mg at 04/05/25 0916 heparin 11742 units/250 mL (100 units/mL) in 0.45 % [...] Tibia Fibula Right With & Without Contrast [[id number]] Collected: 04/04/252256 Updated: 04/04/252302 Narrative: MRI TIBIA [...] represent a small area of phlegmonous change (mhcatz72 image 10) measuring approximately 1.6 cm which [...] MD 04/04/2025 11:00 PM EDT Workstation ID: [id number] Impression: 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 (Treated by ID in [place] Dr. Harris). Dr. Torres treated him with [...] Jr., MD - 04/08/2025 3:51 PM EDT [facility] OPERATIVE REPORT PATIENT NAME: Won Dennis DATE OF : 1980 PREOP DIAGNOSIS: Right Right below-knee amputation infection POSTOP DIAGNOSIS: Same. PROCEDURE: Right Right 85559: Secondary closure below-knee amputation SURGEON: Sushil Dean MD OPERATIVE TEAM: Senior Javascript Engineer: Susi Grullon RN Scrub Person: Mary Paredes Scrub Person Extra: Hortencia Toribio Other: Katt Gotti RN; Charis Neville RN ANESTHETIST: Anesthesiologist: Ulises Hoffman MD SURVEY ASSOCIATE: Stan Casillas CRNA Student Nurse Wafer Cutter: Karol Albert SRNA ANESTHESIA: Choice ESTIMATED BLOOD [...] CULTURE (Canceled) Sushil Dean Jr., MD 04/08/25 6275 Description: RIGHT LEG DEEP WOUND FOR CULTURE [...] Jr., MD - 04/07/2025 9:03 PM EDT [facility] [address] [address] OPERATIVE REPORT PATIENT NAME: Won Dennis DATE OF : 1980 PREOP DIAGNOSIS: Right Right below knee amputation stump infection POSTOP DIAGNOSIS: Same. PROCEDURE: Right Right 35003: Incision and drainage of surgical site infection 85066: Debridement of skin, subcutaneous tissue, muscle 95858: Wound vacuum-assisted closure SURGEON: Sushil Dean MD OPERATIVE TEAM: Senior Javascript Engineer: Anum Sanchez RN Scrub Person: Hortencia Toribio; Gerald Ivey RADIOLOGY SUPERVISOR: Anesthesiologist: Luci Alonso DO ANESTHESIA: General [...] ago swellling of the area. seen at [facility] yesterday for CT and US, here [...] this chart in the absence of a shop estimator. No orders to display RADIOLOGY: [x] Radiologist's [...] 04/11/2025 1:30 PM EDT Continued Stay Note [place] Patient Name: Won Dennis Today's Date: 04/11/2025 [...] changes. DEBRA has spoke with Dena at [facility] today multiple times to get setup [...] to get IV ABX at home with [facility]; however, Medicaid lapsed on 04/08. DEBRA was unaware until this morning that Medicaid has lapsed. Patient explained that he has Medicare A and B. CM spoke with KELLEE and given themhis Medicare number [id number], she sent it to Admission. DEBRA spoke with Kerri, with [facility], and explained that he had [...] [facility] to [facility] at [phone]. CM will follow up with them tomorrow [...] with patient at bedside today. [facility]. Patient getting PICC line [...] note were not included. Discharge Planning Assessment [place] Patient Name: Won Dennis Today's Date: 04/07/2025 [...] with family Patient/Family Anticipated Services at [facility] Anticipated family or friend will provide Discharge Needs Assessment Equipment Currently Used at Home glucometer;shower chair;pulse ox;bp cuff;prosthesis;crutches Equipment Needed After Discharge none Discharge Plan Row Name 04/07/25 1144 Plan Plan Home Patient/Family in Agreement with Plan yes Plan Comments CM spoke with patient at bedside today. Patient lives with [facility]. 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 He has walker, cane, shower chair, and crutches. He requested a wheelchair for home. CM will order wheelchair through [employer]. He is not current with home health services. PCP is Dr. Jordan. Insurance is [facility] Medicaid [place]. Patient discharge plan is home with priavte transport. CM will follow for any discharge needs. Final Discharge Disposition Code 01 - home or self-care Continued Care and Services - Admitted Since 04/04/2025 No active coordination exists. Demographic Summary Row Name 04/07/25 1143 General Information Arrived From hospital Preferred Language Kyrgyz Functional Status Row Name 04/07/25 1143 Functional [...] 3:4 0 PM EDT Right BKA infection LA SEC ABDOMINAL WALL SUTURE EVISCERATION/DEHSN 04/08/2025 3:20 [...] CBC Auto Differential (04/11/2025 3:40 AM EDT) [facility] WBC 7.87 3.40 - 10.80 10*3/mm3 04/11/2025 4:02 AM EDT [facility] RBC 4.70 4.14 - 5.80 10*6/mm3 04/11/2025 4:02 AM EDT [facility] Hemoglobin 12.8(L) 13.0 - 17.7 g/dL 04/11/2025 4:02 AM EDT [facility] Hematocrit 40.5 37.5 - 51.0 % 04/11/2025 4:02 AM EDT [facility] MCV 86.2 79.0 - 97.0 fL 04/11/2025 4:02 AM EDT [facility] MCH 27.2 26.6 - 33.0 pg 04/11/2025 4:02 AM EDT [facility] MCHC 31.6 31.5 - 35.7 g/dL 04/11/2025 4:02 AM EDT [facility] RDW 12.9 12.3 - 15.4 % 04/11/2025 4:02 AM EDT [facility] RDW-SD 40.5 37.0 - 54.0 fl 04/11/2025 4:02 AM EDT [facility] MPV 9.2 6.0 - 12.0 fL 04/11/2025 4:02 AM EDT [facility] Platelets 267 140 - 450 10*3/mm3 04/11/2025 4:02 AM [facility] Neutrophil % 59.5 42.7 - 76.0 % 04/11/2025 4:02 AM [facility] Lymphocyte % 26.3 19.6 - 45.3 % 04/11/2025 4:02 AM [facility] Monocyte % 9.3 5.0 - 12.0 % 04/11/2025 4:02 AM [facility] Eosinophil % 4.1 0.3 - 6.2 % 04/11/2025 4:02 AM [facility] Basophil % 0.4 0.0 - 1.5 % 04/11/2025 4:02 AM [facility] Immature Grans % 0.4 0.0 - 0.5 % 04/11/2025 4:02 AM [facility] Neutrophils, Absolute 4.69 1.70 - 7.00 10*3/mm3 04/11/2025 4:02 AM [facility] Lymphocytes, Absolute 2.07 0.70 - 3.10 10*3/mm3 04/11/2025 4:02 AM [facility] Monocytes, Absolute 0.73 0.10 - 0.90 10*3/mm3 04/11/2025 4:02 AM [facility] Eosinophils, Absolute 0.32 0.00 - 0.40 10*3/mm3 04/11/2025 4:02 AM [facility] Basophils, Absolute 0.03 0.00 - 0.20 10*3/mm3 04/11/2025 4:02 AM [facility] Immature Grans, Absolute 0.03 0.00 - 0.05 10*3/mm3 04/11/2025 4:02 AM [facility] nRBC 0.0 0.0 - 0.2 /100 WBC 04/11/2025 4:02 AM [facility] Blood Venipuncture / Unknown 04/11/2025 3:40 AM EDT 04/11/2025 3:59 AM EDT us Sushil Dean Jr., MD LAB BLOOD ORDERABLES Fi nal Result [facility]
[address] [place] [address], * (ABNORMAL) Comprehensive Metabolic Panel (04/11/2025 3:40 AM EDT) Glucose 108(H) 65 - 99 mg/dL 04/11/2025 4:19 AM EDT [facility] BUN 12.5 6.0 - 20.0 mg/dL 04/11/2025 4:19 AM EDT [facility] Creatinine 0.68(L) 0.76 - 1.27 mg/dL 04/11/2025 4:19 AM EDT [facility] Sodium 140 136 - 145 mmol/L 04/11/2025 4:19 AM EDT [facility] Potassium 3.8 3.5 - 5.2 mmol/L 04/11/2025 4:19 AM EDT [facility] Chloride 105 98 - 107 mmol/L 04/11/2025 4:19 AM EDT [facility] CO2 28.2 22.0 - 29.0 mmol/L 04/11/2025 4:19 AM EDT [facility] Calcium 8.2(L) 8.6 - 10.5 mg/dL 04/11/2025 4:19 AM EDT [facility] Total Protein 6.1 6.0 - 8.5 g/dL 04/11/2025 4:19 AM EDT [facility] Albumin 3.1(L) 3.5 - 5.2 g/dL 04/11/2025 4:19 AM EDT [facility] ALT (SGPT) 52(H) 1 - 41 U/L 04/11/2025 4:19 AM EDT [facility] AST (SGOT) 40 1 - 40 U/L 04/11/2025 4:19 AM EDT [facility] Alkaline Phosphatase 99 39 - 117 U/L 04/11/2025 4:19 AM EDT [facility] Total Bilirubin 0.2 0.0 - 1.2 mg/dL 04/11/2025 4:19 AM EDT [facility] Globulin 3.0 gm/dL 04/11/2025 4:19 AM EDT [facility] Comment:Calculated Result A/G Ratio 1.0 g/dL 04/11/2025 4:19 AM EDT [facility] BUN/Creatinine Ratio 18.4 7.0 - 25.0 04/11/2025 4:19 AM EDT [facility] Anion Gap 6.8 5.0 - 15.0 mmol/L 04/11/2025 4:19 AM EDT [facility] eGFR 117.5 >60.0 mL/min/1.7 3 04/11/2025 4:19 AM EDT [facility] Blood Venipuncture / Unknown 04/11/2025 3:40 AM EDT 04/11/2025 3:56 AM EDT [facility] - 04/11/2025 4:19 AM EDT [...] Hill APRN LAB BLOOD ORDERABLES Final Result [facility]
[address] [place] [address], * (ABNORMAL) CBC Auto Differential (04/10/2025 3:46 AM EDT) [facility] WBC 9.60 3.40 - 10.80 10*3/mm3 04/10/2025 3:56 AM EDT [facility] RBC 4.67 4.14 - 5.80 10*6/mm3 04/10/2025 3:[facility] Hemoglobin 12.9(L) 13.0 - 17.7 g/dL 04/10/2025 3:56 AM EDT [facility] Hematocrit 40.1 37.5 - 51.0 % 04/10/2025 3:56 [facility] MCV 85.9 79.0 - 97.0 fL 04/10/2025 3:56 [facility] MCH 27.6 26.6 - 33.0 pg 04/10/2025 3:56 AM [facility] MCHC 32.2 31.5 - 35.7 g/dL 04/10/2025 3:56 [facility] RDW 12.9 12.3 - 15.4 % 04/10/2025 3:56 AM [facility] RDW-SD 40.5 37.0 - 54.0 fl 04/10/2025 3:56 AM [facility] MPV 9.5 6.0 - 12.0 fL 04/10/2025 3:56 AM [facility] Platelets 227 140 - 450 10*3/mm3 04/10/2025 3:56 AM EDT [facility] Neutrophil % 59.1 42.7 - 76.0 % 04/10/2025 3:56 [facility] Lymphocyte % 29.0 19.6 - 45.3 % 04/10/2025 3:56 [facility] Monocyte % 8.1 5.0 - 12.0 % 04/10/2025 3:56 [facility] Eosinophil % 3.2 0.3 - 6.2 % 04/10/2025 3:56 AM EDT [facility] Basophil % 0.4 0.0 - 1.5 % 04/10/2025 3:56 AM EDT [facility] Immature Grans % 0.2 0.0 - 0.5 % 04/10/2025 3:56 AM EDT [facility] Neutrophils, Absolute 5.67 1.70 - 7.00 10*3/mm3 04/10/2025 3:56 AM EDT [facility] Lymphocytes, Absolute 2.78 0.70 - 3.10 10*3/mm3 04/10/2025 3:56 AM EDT [facility] Monocytes, Absolute 0.78 0.10 - 0.90 10*3/mm3 04/10/2025 3:56 AM EDT [facility] Eosinophils, Absolute 0.31 0.00 - 0.40 10*3/mm3 04/10/2025 3:56 AM EDT [facility] Basophils, Absolute 0.04 0.00 - 0.20 10*3/mm3 04/10/2025 3:56 AM EDT [facility] Immature Grans, Absolute 0.02 0.00 - 0.05 10*3/mm3 04/10/2025 3:56 AM EDT [facility] nRBC 0.0 0.0 - 0.2 /100 WBC 04/10/2025 3:56 AM EDT [facility] Blood Venipuncture / Unknown 04/10/2025 3:46 AM EDT 04/10/2025 3:53 AM EDT Jason Álvarez DO LAB BLOOD ORDERABLES Final Resul t [facility]
[address] [place] [address], * (ABNORMAL) Basic Metabolic Panel (04/10/2025 3:46 AM EDT) [facility] Glucose 125(H) 65 - 99 mg/dL 04/10/2025 4:20 AM EDT [facility] BUN 15.9 6.0 - 20.0 mg/dL 04/10/2025 4:20 AM T [facility] Creatinine 0.77 0.76 - 1.27 mg/dL 04/10/2025 4:20 AM T [facility] Sodium 137 136 - 145 mmol/L 04/10/2025 4:20 AM [facility] Potassium 3.9 3.5 - 5.2 mmol/L 04/10/2025 4:20 AM EDT [facility] Chloride 102 98 - 107 mmol/L 04/10/2025 4:20 AM EDT [facility] CO2 26.9 22.0 - 29.0 mmol/L 04/10/2025 4:20 AM [facility] Calcium 7.9(L) 8.6 - 10.5 mg/dL 04/10/2025 4:20 AM [facility] BUN/Creatinine Ratio 20.6 7.0 - 25.0 04/10/2025 4:20 AM [facility] Anion Gap 8.1 5.0 - 15.0 mmol/L 04/10/2025 4:20 AM [facility] eGFR 113.2 >60.0 mL/min/1.7 3 04/10/2025 4:20 AM [facility] Blood Venipuncture / Unknown 04/10/2025 3:46 AM EDT 04/10/2025 3:52 AM EDT [facility] - 04/10/2025 4:20 AM EDT [...] DO LAB BLOOD ORDERABLES Final Resul t [facility]
[address] [place] [address], * Heparin Anti-Xa (04/10/2025 3:46 AM EDT) Heparin Anti-Xa (UFH) 0.35 0.30 - 0.70 IU/ml 04/10/2025 4:23 AM EDT [facility] Blood Venipuncture / Unknown 04/10/2025 3:46 AM EDT 04/10/2025 3:53 AM EDT [facility] LAB BLOOD ORDERABLES Final R esult Performing Organization Address City/[facility]/ZIP Co de Phone Number [facility]
[address] [place] [address], * Heparin Anti-Xa (04/09/2025 10:05 AM EDT) Heparin Anti-Xa (UFH) 0.36 0.30 - 0.70 IU/ml 04/09/2025 11:12 AM EDT [facility] Blood Venipuncture / Unknown 04/09/2025 10:05 AM EDT 04/09/2025 10:47 AM EDT [facility] LAB BLOOD ORDERABLES Final R esult [facility]
[address] [place] [address], * (ABNORMAL) CBC Auto Differential (04/09/2025 4:18 AM EDT) WBC 11.00(H) 3.40 - 10.80 10*3/mm3 04/09/2025 4:50 AM [facility] RBC 4.70 4.14 - 5.80 10*6/mm3 04/09/2025 4:50 AM EDT [facility] Hemoglobin 13.0 13.0 - 17.7 g/dL 04/09/2025 4:50 AM EDT [facility] Hematocrit 40.4 37.5 - 51.0 % 04/09/2025 4:50 AM EDT [facility] MCV 86.0 79.0 - 97.0 fL 04/09/2025 4:50 AM EDT [facility] MCH 27.7 26.6 - 33.0 pg 04/09/2025 4:50 [facility] MCHC 32.2 31.5 - 35.7 g/dL 04/09/2025 4:50 AM [facility] RDW 12.8 12.3 - 15.4 % 04/09/2025 4:50 AM [facility] RDW-SD 39.9 37.0 - 54.0 fl 04/09/2025 4:50 AM [facility] MPV 10.0 6.0 - 12.0 fL 04/09/2025 4:50 AM [facility] Platelets 211 140 - 450 10*3/mm3 04/09/2025 4:50 AM [facility] Neutrophil % 74.8 42.7 - 76.0 % 04/09/2025 4:50 AM EDT [facility] Lymphocyte % 15.4(L) 19.6 - 45.3 % 04/09/2025 4:50 AM EDT [facility] Monocyte % 8.5 5.0 - 12.0 % 04/09/2025 4:50 AM EDT [facility] Eosinophil % 0.6 0.3 - 6.2 % 04/09/2025 4:50 AM [facility] Basophil % 0.4 0.0 - 1.5 % 04/09/2025 4:50 AM EDT [facility] Immature Grans % 0.3 0.0 - 0.5 % 04/09/2025 4:50 AM EDT [facility] Neutrophils, Absolute 8.23(H) 1.70 - 7.00 10*3/mm3 04/09/2025 4:50 AM EDT [facility] Lymphocytes, Absolute 1.69 0.70 - 3.10 10*3/mm3 04/09/2025 4:50 AM EDT [facility] Monocytes, Absolute 0.94(H) 0.10 - 0.90 10*3/mm3 04/09/2025 4:50 AM EDT [facility] Eosinophils, Absolute 0.07 0.00 - 0.40 10*3/mm3 04/09/2025 4:50 AM EDT [facility] Basophils, Absolute 0.04 0.00 - 0.20 10*3/mm3 04/09/2025 4:50 AM EDT [facility] Immature Grans, Absolute 0.03 0.00 - 0.05 10*3/mm3 04/09/2025 4:50 AM EDT [facility] nRBC 0.0 0.0 - 0.2 /100 WBC 04/09/2025 4:50 AM EDT [facility] Blood Venipuncture / Unknown 04/09/2025 4:18 AM EDT 04/09/2025 4:31 AM EDT Sushil Dean Jr., MD LAB BLOOD ORDERABLES Fi nal Result [facility]
[address] [place] [address], * Heparin Anti-Xa (04/09/2025 4:18 AM EDT) Heparin Anti-Xa (UFH) 0.41 0.30 - 0.70 IU/ml 04/09/2025 4:53 AM EDT [facility] Blood Venipuncture / Unknown 04/09/2025 4:18 AM EDT 04/09/2025 4:31 AM EDT Una Wheeleroy PharmD LAB BLOOD ORDERABLES Final R esult [facility]
[address] [place] [address], * (ABNORMAL) Basic Metabolic Panel (04/09/2025 4:18 AM EDT) Pathologist [facility] Glucose 147(H) 65 - 99 mg/dL 04/09/2025 5:33 AM EDT [facility] BUN 23.0(H) 6.0 - 20.0 mg/dL 04/09/2025 5:33 AM EDT [facility] Creatinine 1.15 0.76 - 1.27 mg/dL 04/09/2025 5:33 AM EDT [facility] Sodium 135(L) 136 - 145 mmol/L 04/09/2025 5:33 AM EDT [facility] Potassium 4.2 3.5 - 5.2 mmol/L 04/09/2025 5:33 AM EDT [facility] Chloride 100 98 - 107 mmol/L 04/09/2025 5:33 AM EDT [facility] CO2 26.0 22.0 - 29.0 mmol/L 04/09/2025 5:33 AM EDT [facility] Calcium 8.2(L) 8.6 - 10.5 mg/dL 04/09/2025 5:33 AM EDT [facility] BUN/Creatinine Ratio 20.0 7.0 - 25.0 04/09/2025 5:33 AM EDT [facility] Anion Gap 9.0 5.0 - 15.0 mmol/L 04/09/2025 5:33 AM EDT [facility] eGFR 80.5 >60.0 mL/min/1.7 3 04/09/2025 5:33 AM EDT [facility] Blood Venipuncture / Unknown 04/09/2025 4:18 AM EDT 04/09/2025 4:29 AM EDT Narrative [facility] - 04/09/2025 5:33 AM [...] ORDERABLES Fi nal Result Performing Organization Address [facility] Co de Phone Number [facility]
[address] [place] [address], * Wound Culture - Swab, Leg, Right (04/08/2025 3:40 PM EDT) Wound Culture No growth at 3 days ALIZA 04/11/2025 10:40 AM EDT [facility] Gram Stain Few (2+) WBCs seen 04/11/2025 10:40 AM EDT [facility] Gram Stain No organisms seen 04/11/2025 10:40 AM EDT [facility] Swab Structure of right lower limb / Unknown 04/08/2025 3:40 PM EDT 04/08/2025 8:05 PM EDT Sushil Dean Jr., MD MICROBIOLOGY - GENERAL ORDERABLES Final Result Performing Organization Address City/[facility]/ZIP Co de Phone Number [facility]
[address] [phone], [facility]
[address] [place] [address], * Anaerobic Culture - Swab, Leg, Right (04/08/2025 3:40 PM EDT) Pathologist [facility] Anaerobic Culture No anaerobes isolated at 5 days ALIZA 04/13/2025 7:24 AM EDT [facility] Swab Structure of right lower limb / Unknown 04/08/2025 3:40 PM EDT 04/08/2025 8:05 PM EDT Sushil Dean Jr., MD MICROBIOLOGY - GENERAL ORDERABLES Final Result Performing Organization Address City/[facility] Co de Phone Number [facility]
[address] [place] [address], [place] [phone] * Scan Slide (04/08/2025 8:41 AM EDT) Pathologist [facility] RBC Morphology Normal Normal 04/08/2025 11:02 AM EDT [facility] WBC Morphology Normal Normal 04/08/2025 11:02 AM EDT [facility] Platelet Estimate Adequate Normal 04/08/2025 11:02 AM EDT [facility] Clumped Platelets Present None Seen 04/08/2025 11:02 AM EDT [facility] Blood Venipuncture / Unknown 04/08/2025 8:41 AM EDT 04/08/2025 9:10 AM EDT Una LundbergD LAB BLOOD ORDERABLES Final R esult Performing Organization Address City/[facility]/ZIP Co de Phone Number [facility]
[address] [place] [address], [place] [phone] * (ABNORMAL) CBC Auto Differential (04/08/2025 8:41 AM EDT) Pathologist [facility] WBC 10.07 3.40 - 10.80 10*3/mm3 04/08/2025 11:02 AM EDT [facility] RBC 5.01 4.14 - 5.80 10*6/mm3 04/08/2025 11:02 AM EDT [facility] Hemoglobin 14.0 13.0 - 17.7 g/dL 04/08/2025 11:02 AM [facility] Hematocrit 42.7 37.5 - 51.0 % 04/08/2025 11:02 AM [facility] MCV 85.2 79.0 - 97.0 fL 04/08/2025 11:02 AM [facility] MCH 27.9 26.6 - 33.0 pg 04/08/2025 11:02 AM [facility] MCHC 32.8 31.5 - 35.7 g/dL 04/08/2025 11:02 AM [facility] RDW 12.6 12.3 - 15.4 % 04/08/2025 11:02 AM [facility] RDW-SD 38.9 37.0 - 54.0 fl 04/08/2025 11:02 AM [facility] MPV 11.0 6.0 - 12.0 fL 04/08/2025 11:02 AM [facility] Platelets 118(L) 140 - 450 10*3/mm3 04/08/2025 11:02 AM [facility] Neutrophil % 85.1(H) 42.7 - 76.0 % 04/08/2025 11:02 AM [facility] Lymphocyte % 9.3(L) 19.6 - 45.3 % 04/08/2025 11:02 AM [facility] Monocyte % 4.6(L) 5.0 - 12.0 % 04/08/2025 11:02 AM [facility] Eosinophil % 0.3 0.3 - 6.2 % 04/08/2025 11:02 AM [facility] Basophil % 0.2 0.0 - 1.5 % 04/08/2025 11:02 AM [facility] Immature Grans % 0.5 0.0 - 0.5 % 04/08/2025 11:02 AM [facility] Neutrophils, Absolute 8.57(H) 1.70 - 7.00 10*3/mm3 04/08/2025 11:02 AM EDT [facility] Lymphocytes, Absolute 0.94 0.70 - 3.10 10*3/mm3 04/08/2025 11:02 AM EDT [facility] Monocytes, Absolute 0.46 0.10 - 0.90 10*3/mm3 04/08/2025 11:02 AM EDT [facility] Eosinophils, Absolute 0.03 0.00 - 0.40 10*3/mm3 04/08/2025 11:02 AM EDT [facility] Basophils, Absolute 0.02 0.00 - 0.20 10*3/mm3 04/08/2025 11:02 AM EDT [facility] Immature Grans, Absolute 0.05 0.00 - 0.05 10*3/mm3 04/08/2025 11:02 AM EDT [facility] nRBC 0.0 0.0 - 0.2 /100 WBC 04/08/2025 11:02 AM EDT [facility] Blood Venipuncture / Unknown 04/08/2025 8:41 AM EDT 04/08/2025 9:10 AM EDT Una Perla PharmD LAB BLOOD ORDERABLES Final R esult [facility]
[address] [place] [address], * (ABNORMAL) Basic Metabolic Panel (04/08/2025 8:41 AM EDT) Glucose 125(H) 65 - 99 mg/dL 04/08/2025 9:51 AM EDT [facility] BUN 13.2 6.0 - 20.0 mg/dL 04/08/2025 9:51 AM EDT [facility] Creatinine 0.69(L) 0.76 - 1.27 mg/dL 04/08/2025 9:51 AM EDT [facility] Sodium 136 136 - 145 mmol/L 04/08/2025 9:51 AM EDT [facility] Potassium 4.6 3.5 - 5.2 mmol/L 04/08/2025 9:51 AM EDT [facility] Chloride 102 98 - 107 mmol/L 04/08/2025 9:51 AM EDT [facility] CO2 23.5 22.0 - 29.0 mmol/L 04/08/2025 9:51 AM EDT [facility] Calcium 8.4(L) 8.6 - 10.5 mg/dL 04/08/2025 9:51 AM EDT [facility] BUN/Creatinine Ratio 19.1 7.0 - 25.0 04/08/2025 9:51 AM EDT [facility] Anion Gap 10.5 5.0 - 15.0 mmol/L 04/08/2025 9:51 AM EDT [facility] eGFR 117.0 >60.0 mL/min/1.7 3 04/08/2025 9:51 AM EDT [facility] Blood Venipuncture / Unknown 04/08/2025 8:41 AM EDT 04/08/2025 9:09 AM EDT [facility] - 04/08/2025 9:51 AM EDT [...] Jr., MD LAB BLOOD ORDERABLES nal Result [facility]
[address] [place] [address], * Heparin Anti-Xa (04/08/2025 8:41 AM EDT) Heparin Anti-Xa (UFH) 0.33 0.30 - 0.70 IU/ml 04/08/2025 9:40 AM EDT [facility] Blood Venipuncture / Unknown 04/08/2025 8:41 AM EDT 04/08/2025 9:10 AM EDT Sushil Dean Jr., MD LAB BLOOD ORDERABLES Fi nal Result [facility]
[address] [place] [address], * FL C Arm During Surgery (04/07/2025 9:32 PM EDT) Narrative SYSTEMGENERATED, DOCUMENTATION - 04/07/2025 9:38 PM EDT This procedure was auto-finalized with no dictation required. Sushil Dean Jr., MD IMG FLUOROSCOPY ORDERAB LES Final Result * Wound Culture - Swab, Leg, Right (04/07/2025 9:14 PM EDT) Wound Culture No growth at 3 days ALIZA 04/11/2025 10:40 AM EDT [facility] Gram Stain Occasional WBCs seen 04/11/2025 10:40 AM EDT [facility] Gram Stain No organisms seen 04/11/2025 10:40 AM EDT [facility] Swab Structure of right lower limb / Unknown Collection / Unknown 04/07/2025 9:14 PM EDT 04/08/2025 4:36 AM EDT Sushil Dean Jr., MD MICROBIOLOGY - GENERAL ORDERABLES Final Result [facility]
[address] [place] [address], [facility]
[address] [place] [address], * Anaerobic Culture - Swab, Leg, Right (04/07/2025 9:14 PM EDT) Anaerobic Culture No anaerobes isolated at 5 days ALIZA 04/13/2025 7:21 AM EDT [facility] Swab Structure of right lower limb / Unknown Collection / Unknown 04/07/2025 9:14 PM EDT 04/08/2025 4:36 AM EDT Sushil Dean Jr., MD MICROBIOLOGY - GENERAL ORDERABLES Final Result Performing Organization Address City/[facility]/ZIP Co de Phone Number [facility]
[address] [place] [address], * Anaerobic Culture - Tissue, Leg (04/07/2025 9:13 PM EDT) Anaerobic Culture No anaerobes isolated at 5 days ALIZA 04/13/2025 7:21 AM EDT [facility] Tissue Lower limb structure / Unknown Collection / Unknown 04/07/2025 9:13 PM EDT 04/08/2025 4:54 AM EDT Jason Álvarez DO MICROBIOLOGY - GENERAL ORDERABLE S Final Result [facility]
[address] [place] [address], * Tissue / Bone Culture - Tissue, Leg, Right (04/07/2025 9:13 PM EDT) Tissue Culture No growth at 3 days ALIZA 04/11/2025 10:36 AM EDT [facility] Gram Stain Rare (1+) WBCs seen 04/11/2025 10:36 AM EDT [facility] Gram Stain No organisms seen 04/11/2025 10:36 AM EDT [facility] Tissue Structure of right lower limb / Unknown 04/07/2025 9:13 PM EDT 04/08/2025 4:54 AM EDT Sushil Dean Jr., MD MICROBIOLOGY - GENERAL ORDERABLES Final Result Performing Organization Address City/[facility]/ZIP Co de Phone Number [facility]
[address] [place] [address], [place] [phone] [facility]
[address] [place] [address], [place] [phone] * (ABNORMAL) Wound Culture - Swab, Leg, Right (04/07/2025 9:07 PM EDT) Wound Culture Light growth (2+) Staphylococcus aureus, MRSA(A) ALIZA 04/10/2025 10:38 AM EDT [facility] Comment: Methicillin resistant Staphylococcus aureus, Patient may be an isolation risk. Gram Stain Few (2+) WBCs seen 04/10/2025 10:38 AM EDT [facility] Gram Stain No organisms seen 10:38 AM EDT [facility] Swab Structure of right lower limb / Unknown Collection / Unknown 04/07/2025 9:07 PM EDT 04/08/2025 4:36 AM EDT Narrative Organism Antibiotic Method Susceptibility Staphylococcus aureus, MRSA Clindamycin ALZIA 0.25 ug/ml: Susceptible Staphylococcus aureus, MRSA Erythromycin ALIZA >=8 ug/ml: Resistant Staphylococcus aureus, MRSA Oxacillin ALIZA >=4 ug/ml: Resistant Staphylococcus aureus, MRSA Rifampin ALIZA <=0.5 ug/ml: Susceptible Staphylococcus aureus, MRSA Tetracycline ALIZA <=1 ug/ml: Susceptible Staphylococcus aureus, MRSA Trimethoprim + Sulfamethoxazole ALIZA <=10 ug/ml: Susceptible Staphylococcus aureus, MRSA Vancomycin ALIZA 1 ug/ml: Susceptible Sushil Dean Jr., MD MICROBIOLOGY - GENERAL ORDERABLES Final Result [facility]
[address] [place] [address], [facility]
[address] [place] [address], * Anaerobic Culture - Swab, Leg, Right (04/07/2025 9:07 PM EDT) Pathologist [facility] Anaerobic Culture No anaerobes isolated at 5 days ALIZA 04/13/2025 7:21 AM EDT [facility] Swab Structure of right lower limb / Unknown Collection / Unknown 04/07/2025 9:07 PM EDT 04/08/2025 4:36 AM EDT Sushil Dean Jr., MD MICROBIOLOGY - GENERAL ORDERABLES Final Result Performing Organization Address [facility] Co de Phone Number [facility]
[address] [place] [address], * Heparin Anti-Xa (04/07/2025 9:10 AM EDT) [facility] Heparin Anti-Xa (UFH) 0.30 0.30 - 0.70 IU/ml 04/07/2025 10:12 AM EDT [facility] Blood Venipuncture / Unknown 04/07/2025 9:10 AM EDT 04/07/2025 9:38 AM EDT Una LundbergD LAB BLOOD ORDERABLES Final R esult Performing Organization Address City/[facility]/ZIP Co de Phone Number [facility]
[address] [place] [address], * (ABNORMAL) CBC Auto Differential (04/07/2025 9:10 AM EDT) Pathologist [facility] WBC 8.63 3.40 - 10.80 10*3/mm3 04/07/2025 9:50 AM EDT [facility] RBC 5.23 4.14 - 5.80 10*6/mm3 04/07/2025 9:[facility] Hemoglobin 14.7 13.0 - 17.7 g/dL 04/07/2025 9:50 AM [facility] Hematocrit 44.8 37.5 - 51.0 % 04/07/2025 9:50 AM [facility] MCV 85.7 79.0 - 97.0 fL 04/07/2025 9:50 AM EDT [facility] MCH 28.1 26.6 - 33.0 pg 04/07/2025 9:50 AM [facility] MCHC 32.8 31.5 - 35.7 g/dL 04/07/2025 9:50 AM [facility] RDW 12.8 12.3 - 15.4 % 04/07/2025 9:50 AM [facility] RDW-SD 39.9 37.0 - 54.0 fl 04/07/2025 9:50 AM [facility] MPV 10.8 6.0 - 12.0 fL 04/07/2025 9:50 AM [facility] Platelets 149 140 - 450 10*3/mm3 04/07/2025 9:50 AM [facility] Neutrophil % 66.7 42.7 - 76.0 % 04/07/2025 9:50 AM [facility] Lymphocyte % 20.5 19.6 - 45.3 % 04/07/2025 9:50 AM EDT [facility] Monocyte % 9.8 5.0 - 12.0 % 04/07/2025 9:50 AM [facility] Eosinophil % 2.1 0.3 - 6.2 % 04/07/2025 9:50 AM [facility] Basophil % 0.3 0.0 - 1.5 % 04/07/2025 9:50 AM [facility] Immature Grans % 0.6(H) 0.0 - 0.5 % 04/07/2025 9:50 AM EDT [facility] Neutrophils, Absolute 5.75 1.70 - 7.00 10*3/mm3 04/07/2025 9:50 AM EDT [facility] Lymphocytes, Absolute 1.77 0.70 - 3.10 10*3/mm3 04/07/2025 9:50 AM EDT [facility] Monocytes, Absolute 0.85 0.10 - 0.90 10*3/mm3 04/07/2025 9:50 AM EDT [facility] Eosinophils, Absolute 0.18 0.00 - 0.40 10*3/mm3 04/07/2025 9:50 AM EDT [facility] Basophils, Absolute 0.03 0.00 - 0.20 10*3/mm3 04/07/2025 9:50 AM EDT [facility] Immature Grans, Absolute 0.05 0.00 - 0.05 10*3/mm3 04/07/2025 9:50 AM EDT [facility] nRBC 0.0 0.0 - 0.2 /100 WBC 04/07/2025 9:50 AM EDT [facility] Blood Venipuncture / Unknown 04/07/2025 9:10 AM EDT 04/07/2025 9:38 AM EDT us Jason Álvarez DO LAB BLOOD ORDERABLES Final Resul t [facility]
[address] [place] [address], * (ABNORMAL) Basic Metabolic Panel (04/07/2025 9:10 AM EDT) Glucose 112(H) 65 - 99 mg/dL 04/07/2025 10:19 AM EDT [facility] BUN 13.1 6.0 - 20.0 mg/dL 04/07/2025 10:19 AM EDT [facility] Creatinine 0.77 0.76 - 1.27 mg/dL 04/07/2025 10:19 AM EDT [facility] Sodium 139 136 - 145 mmol/L 04/07/2025 10:19 AM EDT [facility] Potassium 4.2 3.5 - 5.2 mmol/L 04/07/2025 10:19 AM EDT [facility] Comment:Specimen hemolyzed. Result may be falsely elevated. Chloride 105 98 - 107 mmol/L 04/07/2025 10:19 AM EDT [facility] CO2 24.8 22.0 - 29.0 mmol/L 04/07/2025 10:19 AM EDT [facility] Calcium 8.6 8.6 - 10.5 mg/dL 04/07/2025 10:19 AM T [facility] BUN/Creatinine Ratio 17.0 7.0 - 25.0 04/07/2025 10:19 AM EDT [facility] Anion Gap 9.2 5.0 - 15.0 mmol/L 04/07/2025 10:19 AM T [facility] eGFR 113.2 >60.0 mL/min/1.7 3 04/07/2025 10:19 AM T [facility] Blood Venipuncture / Unknown 04/07/2025 9:10 AM EDT 04/07/2025 9:38 AM EDT Narrative [facility] - 04/07/2025 10:19 AM [...] DO LAB BLOOD ORDERABLES Final Resul t [facility]
[address] [place] [address], * MRI Tibia Fibula Right With & [...] [place] 04/07/2025 9:58 AM EDT Workstation ID: [id number] Narrative 04/07/2025 9:58 AM EDT MRI TIBIA [...] [place] 04/07/2025 9:58 AM EDT Workstation ID: [id number] us Sushil Dean Jr., MD [facility] MRI ORDERABLES Mary Beth l Result * Heparin Anti-Xa (04/07/2025 1:42 AM EDT) Heparin Anti-Xa (UFH) 0.38 0.30 - 0.70 IU/ml 04/07/2025 2:14 AM EDT [facility] Blood Venipuncture / Unknown 04/07/2025 1:42 AM EDT 04/07/2025 1:54 AM EDT Chelsie Navarretesapna [facility] LAB BLOOD ORDERABLES Final R esult Performing Organization Address City/[facility]/ZIP Co de Phone Number [facility]
[address] [place] [address], * Heparin Anti-Xa (04/06/2025 7:16 PM EDT) Pathologist [facility] Heparin Anti-Xa (UFH) 0.33 0.30 - 0.70 IU/ml 04/06/2025 7:50 PM EDT [facility] Blood Venipuncture / Unknown 04/06/2025 7:16 PM EDT 04/06/2025 7:35 PM EDT Cherri Beatty [facility] LAB BLOOD ORDERABLES Final Res ult Performing Organization Address City/[facility] Co de Phone Number [facility]
[address] [place] [address], * Potassium (04/06/2025 7:16 PM EDT) Pathologist [facility] Potassium 4.0 3.5 - 5.2 mmol/L 04/06/2025 7:53 PM EDT [facility] Blood Venipuncture / Unknown 04/06/2025 7:16 PM EDT 04/06/2025 7:35 PM EDT Jason Álvarez DO LAB BLOOD ORDERABLES Final Resul t Performing Organization Address City/[facility]/ZIP Co de Phone Number [facility]
[address] [place] [address], * (ABNORMAL) Heparin Anti-Xa (04/06/2025 12:36 PM EDT) Heparin Anti-Xa (UFH) 0.24(L) 0.30 - 0.70 IU/ml 04/06/2025 1:23 PM EDT [facility] Blood Venipuncture / Unknown 04/06/2025 12:36 PM EDT 04/06/2025 1:07 PM EDT Una LundbergD LAB BLOOD ORDERABLES Final R esult [facility]
[address] [place] [address], * (ABNORMAL) Heparin Anti-Xa (04/06/2025 3:42 AM EDT) [facility] Heparin Anti-Xa (UFH) 0.25(L) 0.30 - 0.70 IU/ml 04/06/2025 5:30 AM EDT [facility] Blood Venipuncture / Unknown 04/06/2025 3:42 AM EDT 04/06/2025 4:59 AM EDT Chelsie Turpin [facility] LAB BLOOD ORDERABLES Final R esult [facility]
[address] [place] [address], * (ABNORMAL) Basic Metabolic Panel (04/06/2025 3:42 AM EDT) [facility] Glucose 94 65 - 99 mg/dL 04/06/2025 5:59 AM EDT [facility] BUN 12.8 6.0 - 20.0 mg/dL 04/06/2025 5:59 AM EDT [facility] Creatinine 0.80 0.76 - 1.27 mg/dL 04/06/2025 5:59 AM EDT [facility] Sodium 138 136 - 145 mmol/L 04/06/2025 5:59 AM EDT [facility] Potassium 3.6 3.5 - 5.2 mmol/L 04/06/2025 5:59 AM EDT [facility] Chloride 103 98 - 107 mmol/L 04/06/2025 5:59 AM EDT [facility] CO2 24.2 22.0 - 29.0 mmol/L 04/06/2025 5:59 AM EDT [facility] Calcium 8.0(L) 8.6 - 10.5 mg/dL 04/06/2025 5:59 AM EDT [facility] BUN/Creatinine Ratio 16.0 7.0 - 25.0 04/06/2025 5:59 AM EDT [facility] Anion Gap 10.8 5.0 - 15.0 mmol/L 04/06/2025 5:59 AM EDT [facility] eGFR 111.9 >60.0 mL/min/1.7 3 04/06/2025 5:59 AM EDT [facility] Blood Venipuncture / Unknown 04/06/2025 3:42 AM EDT 04/06/2025 5:20 AM EDT Narrative [facility] - 04/06/2025 5:59 AM [...] DO LAB BLOOD ORDERABLES Final Resul t [facility]
[address] [place] [address], * (ABNORMAL) CBC Auto Differential (04/06/2025 3:41 AM EDT) WBC 10.86(H) 3.40 - 10.80 10*3/mm3 04/06/2025 5:04 AM EDT [facility] RBC 5.08 4.14 - 5.80 10*6/mm3 04/06/2025 5:04 AM EDT [facility] Hemoglobin 13.9 13.0 - 17.7 g/dL 04/06/2025 5:04 AM EDT [facility] Hematocrit 43.7 37.5 - 51.0 % 04/06/2025 5:04 AM EDT [facility] MCV 86.0 79.0 - 97.0 fL 04/06/2025 5:04 AM EDT [facility] MCH 27.4 26.6 - 33.0 pg 04/06/2025 5:04 AM EDT [facility] MCHC 31.8 31.5 - 35.7 g/dL 04/06/2025 5:04 AM EDT [facility] RDW 12.8 12.3 - 15.4 % 04/06/2025 5:04 AM EDT [facility] RDW-SD 40.0 37.0 - 54.0 fl 04/06/2025 5:04 AM EDT [facility] MPV 11.7 6.0 - 12.0 fL 04/06/2025 5:04 AM EDT [facility] Platelets 115(L) 140 - 450 10*3/mm3 04/06/2025 5:04 AM EDT [facility] Neutrophil % 65.3 42.7 - 76.0 % 04/06/2025 5:04 AM EDT [facility] Lymphocyte % 20.5 19.6 - 45.3 % 04/06/2025 5:04 AM EDT [facility] Monocyte % 11.8 5.0 - 12.0 % 04/06/2025 5:04 AM EDT [facility] Eosinophil % 1.8 0.3 - 6.2 % 04/06/2025 5:04 AM EDT [facility] Basophil % 0.3 0.0 - 1.5 % 04/06/2025 5:04 AM EDT [facility] Immature Grans % 0.3 0.0 - 0.5 % 04/06/2025 5:04 AM EDT [facility] Neutrophils, Absolute 7.09(H) 1.70 - 7.00 10*3/mm3 04/06/2025 5:04 AM EDT [facility] Lymphocytes, Absolute 2.23 0.70 - 3.10 10*3/mm3 04/06/2025 5:04 AM EDT [facility] Monocytes, Absolute 1.28(H) 0.10 - 0.90 10*3/mm3 04/06/2025 5:04 AM EDT [facility] Eosinophils, Absolute 0.20 0.00 - 0.40 10*3/mm3 04/06/2025 5:04 AM EDT [facility] Basophils, Absolute 0.03 0.00 - 0.20 10*3/mm3 04/06/2025 5:04 AM EDT [facility] Immature Grans, Absolute 0.03 0.00 - 0.05 10*3/mm3 04/06/2025 5:04 AM EDT [facility] nRBC 0.0 0.0 - 0.2 /100 WBC 04/06/2025 5:04 AM EDT [facility] Blood Venipuncture / Unknown 04/06/2025 3:41 AM EDT 04/06/2025 4:58 AM EDT us Jason Álvarez DO LAB BLOOD ORDERABLES Final Resul t [facility]
[address] [place] [address], * Heparin Anti-Xa (04/05/2025 8:43 PM EDT) Heparin Anti-Xa (UFH) 0.38 0.30 - 0.70 IU/ml 04/05/2025 9:09 PM EDT [facility] Blood Venipuncture / Unknown 04/05/2025 8:43 PM EDT 04/05/2025 8:55 PM EDT Cherri Beatty [facility] LAB BLOOD ORDERABLES Final Res ult Performing Organization Address [facility] Co de Phone Number [facility]
[address] [place] [address], * CK (04/05/2025 12:15 PM EDT) Creatine Kinase 140 20 - 200 U/L 04/05/2025 1:31 PM EDT [facility] Blood Venipuncture / Unknown 04/05/2025 12:15 PM EDT 04/05/2025 1:03 PM EDT Carlton Mead MD LAB BLOOD ORDERABLES Final R esult Performing Organization Address [facility] Co de Phone Number [facility]
[address] [place] [address], [place] [phone] * (ABNORMAL) Heparin Anti-Xa (04/05/2025 12:15 PM EDT) Heparin Anti-Xa (UFH) 0.17(L) 0.30 - 0.70 IU/ml 04/05/2025 1:21 PM EDT [facility] Blood Venipuncture / Unknown 04/05/2025 12:15 PM EDT 04/05/2025 1:04 PM EDT Una LundbergD LAB BLOOD ORDERABLES Final R esult Performing Organization Address City/[facility]/ZIP Co de Phone Number [facility]
[address] [place] [address], * (ABNORMAL) aPTT (04/05/2025 3:54 AM EDT) [facility] PTT 35.3(L) 60.0 - 90.0 seconds 04/05/2025 4:31 AM EDT [facility] Blood Venipuncture / Unknown 04/05/2025 3:54 AM EDT 04/05/2025 4:15 AM EDT Narrative [facility] - 04/05/2025 4:31 AM EDT PTT = The equivalent PTT values for the therapeutic range of heparin levels at 0.3 to 0.5 U/ml are 60 to 70 seconds. Una Perla YotpoD LAB BLOOD ORDERABLES Final R esult Performing Organization Address [facility] Co de Phone Number [facility]
[address] [place] [address], * Heparin Anti-Xa (04/05/2025 3:54 AM EDT) [facility] Heparin Anti-Xa (UFH) 0.30 0.30 - 0.70 IU/ml 04/05/2025 4:32 AM EDT [facility] Blood Venipuncture / Unknown 04/05/2025 3:54 AM EDT 04/05/2025 4:15 AM EDT CloutD LAB BLOOD ORDERABLES Final R esult Performing Organization Address City/[facility] Co de Phone Number [facility]
[address] [place] [address], * (ABNORMAL) CBC Auto Differential (04/05/2025 3:54 AM EDT) [facility] WBC 11.18(H) 3.40 - 10.80 10*3/mm3 04/05/2025 4:20 AM EDT [facility] RBC 5.00 4.14 - 5.80 10*6/mm3 04/05/2025 4:20 AM EDT [facility] Hemoglobin 13.9 13.0 - 17.7 g/dL 04/05/2025 4:20 AM EDT [facility] Hematocrit 42.4 37.5 - 51.0 % 04/05/2025 4:20 AM EDT [facility] MCV 84.8 79.0 - 97.0 fL 04/05/2025 4:20 AM EDT [facility] MCH 27.8 26.6 - 33.0 pg 04/05/2025 4:20 [facility] MCHC 32.8 31.5 - 35.7 g/dL 04/05/2025 4:20 AM [facility] RDW 12.9 12.3 - 15.4 % 04/05/2025 4:20 AM [facility] RDW-SD 39.7 37.0 - 54.0 fl 04/05/2025 4:20 AM [facility] MPV 10.2 6.0 - 12.0 fL 04/05/2025 4:20 AM [facility] Platelets 160 140 - 450 10*3/mm3 04/05/2025 4:20 AM [facility] Neutrophil % 73.5 42.7 - 76.0 % 04/05/2025 4:20 AM [facility] Lymphocyte % 14.0(L) 19.6 - 45.3 % 04/05/2025 4:20 AM EDT [facility] Monocyte % 11.0 5.0 - 12.0 % 04/05/2025 4:20 AM [facility] Eosinophil % 0.8 0.3 - 6.2 % 04/05/2025 4:20 AM [facility] Basophil % 0.3 0.0 - 1.5 % 04/05/2025 4:20 AM EDT [facility] Immature Grans % 0.4 0.0 - 0.5 % 04/05/2025 4:20 AM EDT [facility] Neutrophils, Absolute 8.23(H) 1.70 - 7.00 10*3/mm3 04/05/2025 4:20 AM EDT [facility] Lymphocytes, Absolute 1.56 0.70 - 3.10 10*3/mm3 04/05/2025 4:20 AM EDT [facility] Monocytes, Absolute 1.23(H) 0.10 - 0.90 10*3/mm3 04/05/2025 4:20 AM EDT [facility] Eosinophils, Absolute 0.09 0.00 - 0.40 10*3/mm3 04/05/2025 4:20 AM EDT [facility] Basophils, Absolute 0.03 0.00 - 0.20 10*3/mm3 04/05/2025 4:20 AM EDT [facility] Immature Grans, Absolute 0.04 0.00 - 0.05 10*3/mm3 04/05/2025 4:20 AM EDT [facility] nRBC 0.0 0.0 - 0.2 /100 WBC 04/05/2025 4:20 AM EDT [facility] Blood Venipuncture / Unknown 04/05/2025 3:54 AM EDT 04/05/2025 4:16 AM EDT Una Perla PharmD LAB BLOOD ORDERABLES Final R esult [facility]
[address] [place] [address], * (ABNORMAL) Basic Metabolic Panel (04/05/2025 3:54 AM EDT) [facility] Signature Glucose 152(H) 65 - 99 mg/dL 04/05/2025 4:40 AM EDT [facility] BUN 17.3 6.0 - 20.0 mg/dL 04/05/2025 4:40 AM T [facility] Creatinine 0.92 0.76 - 1.27 mg/dL 04/05/2025 4:40 AM EDT [facility] Sodium 136 136 - 145 mmol/L 04/05/2025 4:40 AM EDT [facility] Potassium 3.9 3.5 - 5.2 mmol/L 04/05/2025 4:40 AM EDT [facility] Chloride 103 98 - 107 mmol/L 04/05/2025 4:40 AM EDT [facility] CO2 24.0 22.0 - 29.0 mmol/L 04/05/2025 4:40 AM T [facility] Calcium 7.8(L) 8.6 - 10.5 mg/dL 04/05/2025 4:40 AM [facility] BUN/Creatinine Ratio 18.8 7.0 - 25.0 04/05/2025 4:40 AM T [facility] Anion Gap 9.0 5.0 - 15.0 mmol/L 04/05/2025 4:40 AM [facility] eGFR 105.2 >60.0 mL/min/1.7 3 04/05/2025 4:40 AM [facility] Blood Venipuncture / Unknown 04/05/2025 3:54 AM EDT 04/05/2025 4:15 AM EDT [facility] - 04/05/2025 4:40 AM EDT [...] ORDERABLES Final Re sult Performing Organization Address [facility] Co de Phone Number [facility]
[address] [place] [address], * (ABNORMAL) aPTT (04/05/2025 12:18 AM EDT) PTT 33.6(L) 60.0 - 90.0 seconds 04/05/2025 12:53 AM EDT [facility] Blood Venipuncture / Unknown 04/05/2025 12:18 AM EDT 04/05/2025 12:37 AM EDT Narrative [facility] - 04/05/2025 12:53 AM EDT PTT = The equivalent PTT values for the therapeutic range of heparin levels at 0.3 to 0.5 U/ml are 60 to 70 seconds. Una Perla PharmD LAB BLOOD ORDERABLES Final R esult Performing Organization Address [facility] Co de Phone Number [facility]
[address] [place] [address], [place] [phone] * (ABNORMAL) Protime-INR (04/05/2025 12:18 AM EDT) Protime 15.9(H) 12.2 - 15.3 Seconds 04/05/2025 12:53 AM EDT [facility] INR 1.19(H) 0.89 - 1.12 04/05/2025 12:53 AM EDT [facility] Blood Venipuncture / Unknown 04/05/2025 12:18 AM EDT 04/05/2025 12:37 AM EDT Una Perla PharmD LAB BLOOD ORDERABLES Final R esult Performing Organization Address City/[facility] Co de Phone Number [facility]
[address] [place] [address], [place] [phone] * Heparin Anti-Xa (04/05/2025 12:18 AM EDT) Heparin Anti-Xa ([facility]) 0.39 0.30 - 0.70 IU/ml 04/05/2025 12:54 AM EDT [facility] Blood Venipuncture / Unknown 04/05/2025 12:18 AM EDT 04/05/2025 12:37 AM EDT Una Perla PharmD LAB BLOOD ORDERABLES Final R esult [facility]
[address] [place] [address], * MRI Tibia Fibula Right With & [...] MD 04/04/2025 11:00 PM EDT Workstation ID: [id number] Narrative 04/04/2025 11:00 PM EDT MRI TIBIA [...] MD 04/04/2025 11:00 PM EDT Workstation ID: [id number] us Leonora Shepherd MD IMG MRI ORDERABLES Final Resu lt * POC Creatinine (04/04/2025 2:49 PM EDT) [facility] Creatinine 1.10 0.60 - 1.30 mg/dL 04/07/2025 7:14 PM EDT [facility] Comment:Serial Number: [id number] 7Operator: [id number] Venous Blood 04/04/2025 2:49 PM EDT 04/07/2025 7:14 PM EDT Jason Álvarez DO POINT OF CARE TEST ORDERABLES Fi nal Result [facility]
[address] [place] [address], * (ABNORMAL) CBC Auto Differential (04/04/2025 2:47 PM EDT) [facility] WBC 12.72(H) 3.40 - 10.80 10*3/mm3 04/04/2025 2:56 PM EDT [facility] RBC 5.64 4.14 - 5.80 10*6/mm3 04/04/2025 2:56 PM EDT [facility] Hemoglobin 15.3 13.0 - 17.7 g/dL 04/04/2025 2:56 PM EDT [facility] Hematocrit 47.9 37.5 - 51.0 % 04/04/2025 2:56 PM EDT [facility] MCV 84.9 79.0 - 97.0 fL 04/04/2025 2:56 PM EDT [facility] MCH 27.1 26.6 - 33.0 pg 04/04/2025 2:56 PM EDT [facility] MCHC 31.9 31.5 - 35.7 g/dL 04/04/2025 2:56 PM EDT [facility] RDW 13.1 12.3 - 15.4 % 04/04[facility]2025 2[facility] R[facility]-SD 40.3 37.0 - 54.0 fl 04/04/2025 2:56 PM EDT [facility] MPV 9.4 6.0 - 12.0 fL 04/04/2025 2:56 PM EDT [facility] Platelets 232 140 - 450 10*3/mm3 04/04/2025 2:56 PM EDT [facility] Neutrophil % 74.9 42.7 - 76.0 % 04/04/2025 2:56 PM EDT [facility] Lymphocyte % 13.1(L) 19.6 - 45.3 % 04/04/2025 2:56 [facility] Monocyte % 11.2 5.0 - 12.0 % 04/04/2025 2:56 [facility] Eosinophil % 0.4 0.3 - 6.2 % 04/04/2025 2:56 PM EDT [facility] Basophil % 0.2 0.0 - 1.5 % 04/04/2025 2:56 [facility] Immature Grans % 0.2 0.0 - 0.5 % 04/04/2025 2:56 [facility] Neutrophils, Absolute 9.52(H) 1.70 - 7.00 10*3/mm3 04/04/2025 2:56 PM [facility] Lymphocytes, Absolute 1.66 0.70 - 3.10 10*3/mm3 04/04/2025 2:56 PM EDT [facility] Monocytes, Absolute 1.43(H) 0.10 - 0.90 10*3/mm3 04/04/2025 2:56 PM EDT [facility] Eosinophils, Absolute 0.05 0.00 - 0.40 10*3/mm3 04/04/2025 2:[facility] Basophils, Absolute 0.03 0.00 - 0.20 10*3/mm3 04/04/2025 2:56 PM EDT [facility] Immature Grans, Absolute 0.03 0.00 - 0.05 10*3/mm3 04/04/2025 2:56 PM EDT [facility] nRBC 0.0 0.0 - 0.2 /100 WBC 04/04/2025 2:56 PM EDT [facility] Blood Venipuncture / Unknown 04/04/2025 2:47 PM EDT 04/04/2025 2:52 PM EDT Mario Ortiz [employer] LAB BLOOD ORDERABLES Fin al Result Performing Organization Address City/[facility]/ZIP Co de Phone Number [facility]
[address] [place] [address], * (ABNORMAL) C-reactive Protein (04/04/2025 2:47 PM EDT) C-Reactive Protein 8.57(H) 0.00 - 0.50 mg/dL 04/04/2025 3:26 PM EDT [facility] Blood Venipuncture / Unknown 04/04/2025 2:47 PM EDT 04/04/2025 2:52 PM EDT Mario Ortiz [employer] LAB BLOOD ORDERABLES Fin al Result Performing Organization Address [facility] de Phone Number [facility]
[address] [place] [address], * (ABNORMAL) Sedimentation Rate (04/04/2025 2:47 PM EDT) Sed Rate 51(H) 0 - 15 mm/hr 04/04/2025 3:06 PM EDT [facility] Blood Venipuncture / Unknown 04/04/2025 2:47 PM EDT 04/04/2025 2:52 PM EDT Mario Ortiz [facility] LAB BLOOD ORDERABLES Fin al Result Performing Organization Address City/[facility]/ZIP Co de Phone Number [facility]
[address] [place] [address], * Comprehensive Metabolic Panel (04/04/2025 2:47 PM EDT) [facility] Glucose 90 65 - 99 mg/dL 04/04/2025 3:26 PM EDT [facility] BUN 18.3 6.0 - 20.0 mg/dL 04/04/2025 3:26 PM EDT [facility] Creatinine 0.94 0.76 - 1.27 mg/dL 04/04/2025 3:26 PM EDT [facility] Sodium 136 136 - 145 mmol/L 04/04/2025 3:26 PM EDT [facility] Potassium 3.8 3.5 - 5.2 mmol/L 04/04/2025 3:26 PM EDT [facility] Chloride 100 98 - 107 mmol/L 04/04/2025 3:26 PM EDT [facility] CO2 25.3 22.0 - 29.0 mmol/L 04/04/2025 3:26 PM EDT [facility] Calcium 8.6 8.6 - 10.5 mg/dL 04/04/2025 3:26 PM EDT [facility] Total Protein 7.3 6.0 - 8.5 g/dL 04/04/2025 3:26 PM EDT [facility] Albumin 4.1 3.5 - 5.2 g/dL 04/04/2025 3:26 PM EDT [facility] ALT (SGPT) 26 1 - 41 U/L 04/04/2025 3:26 PM EDT [facility] AST (SGOT) 25 1 - 40 U/L 04/04/2025 3:26 PM EDT [facility] Alkaline Phosphatase 106 39 - 117 U/L 04/04/2025 3:26 PM EDT [facility] Total Bilirubin 1.0 0.0 - 1.2 mg/dL 04/04/2025 3:26 PM EDT [facility] Globulin 3.2 gm/dL 04/04/2025 3:26 PM EDT [facility] Comment:Calculated Result A/G Ratio 1.3 g/dL 04/04/2025 3:26 PM EDT [facility] BUN/Creatinine Ratio 19.5 7.0 - 25.0 04/04/2025 3:26 PM EDT [facility] Anion Gap 10.7 5.0 - 15.0 mmol/L 04/04/2025 3:26 PM EDT [facility] eGFR 102.5 >60.0 mL/min/1.7 3 04/04/2025 3:26 PM EDT [facility] Blood Venipuncture / Unknown 04/04/2025 2:47 PM EDT 04/04/2025 2:52 PM EDT Narrative [facility] - 04/04/2025 3:26 PM [...] DO LAB BLOOD ORDERABLES Fin al Result [facility]
[address] [place] [address], documented in this encounter Visit Diagnoses Diagnosis [...] 04/05/2025 3:33 PM EDT 2,000 Units heparin 53375 units/250 mL (100 units/mL) in 0.45 % [...] BPA Driven Protocol Open Order & [facility] Electrolyte Replacement Protocol Algorithm to View Details [...] BPA Driven Protocol Open Order & [facility] Electrolyte Replacement Protocol Algorithm to View Details [...] disposal. 0831 (Given - Provider: Amber Salazar, [employer]ANGE TENDER)194 (Given - Provider: Anahy Marcelino, CL[employer]ING RANGE TENDER)2129 (Canceled Entry - Provider: Anhay Marcelino RRT - Comment: previously given) 0837 (Given - Provider: Amber Salazar RRT)2006 (Given - Provider: Loree Reese, KELL)2129 (Canceled Entry - Provider: Lroee Reese RRT) 1037 (Given - Provider: eLonora Chen, EKLL) cefTRIAXone (ROCEPHIN) 2,000 mg in sodium chloride [...] Hart RN) 100 (Given - Provider: Marguerite Wakfeield, RN) hydroCHLOROthiazide tablet 12.5 mg 12.5 mg, [...] Hart, RN)2100 (Canceled Entry - Provider: Alberto Dillno RN) 0908 (Given - Provider: Shirley Hart [...] Continuous Medication Order 04/09/2025 04/10/2025 04/11/2025 heparin 73408 units/250 mL (100 units/mL) in 0.45 % [...] BPA Driven Protocol Open Order & [facility] Electrolyte Replacement Protocol Algorithm to View Details [...] Shirley Hart, LU)1508 (Given - Provider: Shirley Hrat, LU)2030 (Given - Provider: Alberto Dillon, RN) [...] BPA Driven Protocol Open Order & [facility] Electrolyte Replacement Protocol Algorithm to View Details [...] documented as of this encounter Care Teams Psychologist Military Personnel Relationship Specialty Start Date End Date Provider, [place] [address] PCP - General 05/09/23 documented as of this encounter
--- OUTSIDE RECORDS SUMMARY | 2025-04-07 18:00 | XMS_ITS | Encounter Summary ---
[facility] Organization [facility] Address [address] [place] [address] Care Team Providers Care Patent Prosecution Attorney Name Role Phone Provider, No Known Primary Care Provider Unavail able Reason for Visit * Reason Comments Leg Swelling * Auth/Cert Specialty Diagnoses / Procedures Referred By Contac t Referred To Contact Diagnoses Right BKA infection Referral ID Status Reason Start Date Expiration Date Visits Re quested Visits Authorized [id number] 1 1 Encounter Details Date Type Department Care Team (Late st Contact Info) Description 04/07/2025 6:00 PM EDT - 04/07/2025 6:52 PM EDT Surgery [facility] OR [address] [place] [address] Sushil Dean Jr., MD [address] [place] [address] [address] [id number] LEG DEBRIDEMENT, IRRIGATION Social History Tobacco Use Types Packs/Day Years Used Date Smoking Tobacco: Never Smokeless Tobacco: Never Tobacco Cessation:Counseling Given: Not Answered Alcohol Use Standard Drinks/Week Comments Not Currently 0 (1 standard drink = 0.6 oz pur e alcohol) [facility] Utilities Answer Date Recorded In the past 12 months has [employer] electric, gas, oil, or water company threatened [...] or training? Not on file Preferred Language American 04/07/2025 Sex and Gender Information Value Date [...] 2:25 PM EDT Cherri Grimm RN * [place] Suicide Severity Rating Scale (Screener/Recent Self-Report) Question Answer Date of Assessment Author 1. Wish to be (Past 1 Month) No 025 2:25 PM EDT Cherri Garica RN 2. Non-Specific Active Suici mickey Thoughts [...] Date/Time Wound Culture - Swab, Leg, Right [[id number]] (Abnormal) (Susceptibility) Collected: 04/07/252106 Lab Status: Final [...] Units Date/Time FL C Arm During Surgery [[id number]] Resulted: 04/07/252137 Updated: 04/07/252137 Narrative: This procedure was auto-finalized with no dictation required. MRI Tibia Fibula Right With & Without Contrast [[id number]] Collected: 04/07/25 0938 Updated: 04/07/25 1001 Narrative: [...] Buenrostro 04/07/2025 9:58 AM EDT Workstation ID: [id number] MRI Tibia Fibula Right With & Without Contrast [[id number]] Collected: 04/04/252256 Updated: 04/04/252302 Narrative: MRI TIBIA [...] represent a small area of phlegmonous change ([id number] image 10) measuring approximately 1.6 cm which [...] MD 04/04/2025 11:00 PM EDT Workstation ID: [id number] Pending Labs Order Current Status Fungus Culture [...] Male) Date of 1980 Social Security Number [id number] [place] [address] [place] [address] Druze Unknown Marital Status Unknown Admission Date 04/04/2025 Admission Type Emergency Admitting Provider Jadyn Richardson DO Attending Provider Jadyn Richardson DO Department, Room/Bed [facility] 5G, S565/1 Discharge Date Discharge Disposition [...] Group [place] [id number] Payor Plan Address Payor Plan Phone Number Payor Plan Fax Number Effective Dates [employer] [address] [address] 08/10/2023 - None Entered [facility] [id number] Subscriber Name Subscriber Date Member ID WON DENNIS 1980 [id number] Emergency Contacts 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.) Home Phone Work Phone Mobile Phone Avril Dennis (Spouse) -- -- [phone] Robert Hackett (Relative) -- -- [phone] [facility] 5G [address] [facility] [address] Patient: ROOM: [facility] Won Dennis [address] [place] [place] [address] : 1980 SSN: [id number] Sex: M PCP: Provider, No Known Emergency Contact Information Name Relation Home Work Mobile Avril Dennis Spouse [phone] Other Contacts Name Relation Home Work Mobile Robert Hackett Relative [phone] INSURANCE PAYOR PLAN GROUP # SUBSCRIBER ID Primary: Secondary: MEDICARE [place] [id number] Admitting Diagnosis: 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] Order Date: Apr 09, 2025 Case Management Handle Rounder Operator Consult (Order ID: [id number]) Diagnosis: Priority: Routine Expected Date: Expiration Date: Interval: Once Count: Comments: Outpatient orders: 1. Outpatient intravenous antibiotic therapy: Daptomycin 800 mg IV daily to be supplied by [facility] 2. Home health to perform [...] INFECTIOUS DISEASE Progress Note Won Dennis 1980 [id number] Date of Consult: 04/10/2025 Admission Date: 04/04/2025 [...] Jr., MD, 20 mg at 04/09/25906 heparin 69506 units/250 mL (100 units/mL) in 0.45 % [...] 0.9% NS IVPB ([facility]) Ordering Provider: Mario Crowley, DO 20 mg/kg [...] Units Date/Time FL C Arm During Surgery [[id number]] Resulted: 04/07/252137 Updated: 04/07/252137 Narrative: This procedure was auto-finalized with no dictation required. MRI Tibia Fibula Right With & Without Contrast [[id number]] Collected: 04/07/2538 Updated: 04/07/25 1001 Narrative: MRI [...] Buenrostro 04/07/2025 9:58 AM EDT Workstation ID: [id number] Impression: Recurrent Right BKA stump abscess/cellulitis- this [...] Date/Time Wound Culture - Swab, Leg, Right [[id number]] (Abnormal) (Susceptibility) Collected: 04/07/252106 Lab Status: Final [...] Row Name 04/06/25 1143 Sit-Stand Transfer Sit-Stand Miner (Transfers) modified independence - Comment, (Sit-Stand Transfer) Pt stood from recliner. Not holding onto walker, pt able to pull his pants up while balancing on his one leg. -LM Row Name 04/06/25 1143 Gait/Stairs (Locomotion) Miner Level (Gait) modified independence - Distance in [...] Motion bilateral lower extremity ROM WFL -LM [facility] Name 04/06/25 1145 Strength Comprehensive (MMT) General Manual Muscle Testing (MMT) Assessment no strength deficits identified BLEs -LM [facility] Name 04/06/25 1145 Balance Balance [...] Physical Therapist Goals/Plan No documentation. Clinical Impression [facility] 04/06/25 1146 Pain Pretreatment Pain Rating 0/10 - no pain -LM Posttreatment Pain Rating 0/10 - no pain -LM [facility] 04/06/25 1146 Plan of Care Review Plan of Care Reviewed With patient -LM Outcome Evaluation PT evaluation completed. Pt demonstrated independence with all mobility including ambulating 100 feet using rw - no unsteadiness noted. Pt reports he feels at baseline and doesn't think he needs skilled PT while here. Recommend home at d/c. PT signing off. -LM [facility] Name 04/06/25 1146 Therapy Assessment/Plan (PT) Criteria for Skilled Interventions Met (PT) no;no problems identified which require skilled intervention -LM Therapy Frequency (PT) evaluation only -LM Predicted Duration of Therapy Intervention (PT) Eval Only -LM [facility] Name 04/06/25 1146 Vital Signs Pretreatment Heart Rate (beats/min) 86 -LM Posttreatment Heart Rate (beats/min) 96 -LM Pre SpO2 (%) 95 -LM O2 Delivery Pre Treatment room air -LM Post SpO2 (%) 96 -LM O2 Delivery Post Treatment room air -LM Pre Patient Position Sitting -LM Post Patient Position Sitting -LM [facility] Name 04/06/25 1146 Positioning and [...] Physical Therapy Education Title: PT OT MANAGER COUNTRY Therapies (Done) Topic: Physical Therapy (Done) Point: Mobility training (Done) Learning Progress Summary Patient Acceptance, E, VU,DU by at 04/06/2025 1147 Point: Precautions (Done) Learning Progress Summary Patient Acceptance, E, VU,DU by at 04/06/2025 1147 User Cabrera Initials Effective Dates Name Provider Type [facility] 01/24/25 - Susan Cavazos, PT Physical Therapist [...] Description Service Date Service Provider Modifiers Qty [id number] PT EVAL LOW COMPLEXITY 3 04/06/2025 Susan [...] mg Daily 04/05/2025 -- Route: Oral heparin 89032 units/250 mL (100 units/mL) in 0.45 % [...] [facility] [address], [address] [facility], [address] Please schedule at [phone] VONDA Garcia 04/11/25 08:32 EDT Cosigned by [...] Date/Time Wound Culture - Swab, Leg, Right [[id number]] (Abnormal) (Susceptibility) Collected: 04/07/252106 Lab Status: Final [...] mg Daily 04/05/2025 -- Route: Oral heparin 98853 units/250 mL (100 units/mL) in 0.45 % [...] [facility] [address] [facility], [address] [facility], [address] Please schedule at [phone] VONDA Garcia 04/10/25 09:01 EDT Cosigned by Sushil Dean Jr., MD at 04/19/2025 10:33 AM EDT Associated attestation - Sushil Dean Jr., MD - 04/19/2025 10:33 AM EDT I have reviewed this documentation and agree. * Carlton Mead MD - 04/10/2025 7:38 AM EDT Images from the original note were not included. INFECTIOUS DISEASE Progress Note Won Dennis 1980 [id number] Date of Consult: 04/10/2025 Admission Date: 04/04/2025 [...] IRRIGATION; Surgeon: Sushil Dean Jr., MD; Location: [facility] OR; Service: Orthopedics; Laterality: Right; PLACEMENT OF WOUND VAC Right 04/07/2025 Procedure: WOUND VACUUM ASSISTED CLOSURE; Surgeon: Sushil Dean Jr., MD; Location: [facility] OR; Service: Orthopedics; Laterality: Right; WOUND CLOSURE [...] Jr., MD, 20 mg at 04/09/25906 heparin 58795 units/250 mL (100 units/mL) in [...] Units Date/Time FL C Arm During Surgery [[id number]] Resulted: 04/07/252137 Updated: 04/07/252137 Narrative: This procedure was auto-finalized with no dictation required. MRI Tibia Fibula Right With & Without Contrast [[id number]] Collected: 04/07/25937 Updated: 04/07/25 100 Narrative: MRI [...] Buenrostro 04/07/2025 9:58 AM EDT Workstation ID: [id number] Impression: Recurrent Right BKA stump abscess/cellulitis- this [...] Larisa Hamilton RPH 04/10/2025 07:17 EDT * aJson Álvarez DO - 04/09/2025 2:42 PM EDT [...] Date/Time Wound Culture - Swab, Leg, Right [[id number]] (Abnormal) Collected: 04/07/252106 Lab Status: Preliminary result [...] Order & Select [facility] Electrolyte Replacement Protocol Algorithm to View Details [...] mg Daily 04/05/2025 -- Route: Oral heparin 90766 units/250 mL (100 units/mL) in 0.45 % [...] Order & Select [facility] Electrolyte Replacement Protocol Algorithm to View Details [...] [facility] [address] [facility] [address], [address] [facility], [address] Please schedule at [phone] VONDA Garcia 04/09/25 09:18 EDT Cosigned by Sushil Dean Jr., MD at 04/19/2025 10:33 AM EDT Associated attestation - Sushil Dean Jr., MD - 04/19/2025 10:33 AM EDT I have reviewed this documentation and agree. * Carlton Mead MD - 04/09/2025 8:25 AM EDT Images from the original note were not included. INFECTIOUS DISEASE Progress Note Won Dennis 1980 [id number] Date of Consult: 04/09/2025 Admission Date: 04/04/2025 [...] Sushil Dean Jr., MD; Location: [facility]; Service: Orthopedics; Laterality: Right; PLACEMENT OF WOUND VAC Right 04/07/2025 Procedure: WOUND VACUUM ASSISTED CLOSURE; Surgeon: Sushil Dean Jr., MD; Location: [facility] OR; Service: Orthopedics; Laterality: Right; History [...] MD, 20 mg at 04/08/25 0800 heparin 62785 units/250 mL (100 units/mL) in 0.45 % [...] Units Date/Time FL C Arm During Surgery [[id number]] Resulted: 04/07/252137 Updated: 04/07/252137 Narrative: This procedure was auto-finalized with no dictation required. MRI Tibia Fibula Right With & Without Contrast [[id number]] Collected: 04/07/25 0938 Updated: 04/07/25 1001 Narrative: [...] Chitra 04/07/2025 9:58 AM EDT Workstation ID: [id number] Impression: Recurrent Right BKA stump abscess/cellulitis- this [...] mg IV daily to be supplied by [facility] 2. Home health to perform [...] Buenrostro 04/07/2025 9:58 AM EDT Workstation ID: [id number] I have personally reviewed the therapy plans: [...] Jason Álvarez, DO 04/08/25 * Hamilton, Larisa, [facility] - 04/08/2025 [...] Order & [facility] Electrolyte Replacement Protocol Algorithm to View Details [...] mg Daily 04/05/2025 -- Route: Oral heparin 38062 units/250 mL (100 units/mL) in 0.45 % [...] INFECTIOUS DISEASE Progress Note Won Dennis 1980 [id number] Date of Consult: 04/08/2025 Admission Date: 04/04/2025 [...] Surgeon: Sushil Dean Jr., MD; Location: [facility] OR; Service: Orthopedics; Laterality: Right; PLACEMENT OF WOUND VAC Right 04/07/2025 Procedure: WOUND VACUUM ASSISTED CLOSURE; Surgeon: Sushil Dean Jr., MD; Location: [facility] OR; Service: Orthopedics; Laterality: Right; History [...] Oral, Q6H PRN, 500 mg at 04/06/25 9624 OR acetaminophen (TYLENOL) 160 MG/5ML oral solution [...] Jr., MD, 20 mg at 04/07/25950 heparin 07626 units/250 mL (100 units/mL) in 0.45 % [...] 0.9% NS IVPB ([facility]) Ordering Provider: Mario Crowley, DO 20 mg/kg [...] Units Date/Time FL C Arm During Surgery [[id number]] Resulted: 04/07/252137 Updated: 04/07/252137 Narrative: This procedure was auto-finalized with no dictation required. 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 (Treated by ID in [place] Dr. Harris). Dr. Torres treated him with [...] Hospital Medicine Services PROGRESS NOTE Patient Name: oWn Dennis : 1980 Date [...] Buenrostro 04/07/2025 9:58 AM EDT Workstation ID: [id number] I have personally reviewed the therapy plans: [...] INFECTIOUS DISEASE Progress Note Won Dennis 1980 [id number] Date of Consult: 04/07/2025 Admission Date: 04/04/2025 [...] MD, 20 mg at 04/06/25 0900 heparin 06832 units/250 mL (100 units/mL) in 0.45 % [...] With & Without Contrast - In process [[id number]] Resulted: 04/07/25828 Updated: 04/07/25828 This result has not been signed. Information might be incomplete. 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 (Treated by ID in [place] Dr. Harris). Dr. Torres treated him with [...] Order & [facility] Electrolyte Replacement Protocol Algorithm to View Details [...] mg Daily 04/05/2025 -- Route: Oral heparin 05188 units/250 mL (100 units/mL) in 0.45 % [...] Order & Select [facility] Electrolyte Replacement Protocol Algorithm to View Details [...] MD 04/04/2025 11:00 PM EDT Workstation ID: [id number] I have personally reviewed the therapy plans: [...] Support Level Of Support Discussed With: Patient Jasno Álvarez DO 04/06/25 * Sushil Dean Jr., [...] mg Daily 04/05/2025 -- Route: Oral heparin 63359 units/250 mL (100 units/mL) in 0.45 % [...] Order & Select [facility] Electrolyte Replacement Protocol Algorithm to View Details [...] Order & Select [facility] Electrolyte Replacement Protocol Algorithm to View Details [...] INFECTIOUS DISEASE follow up. 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 (Treated by ID in [place] Dr. Harris). Dr. Torres treated him with [...] MD 04/04/2025 11:00 PM EDT Workstation ID: [id number] I have personally reviewed the therapy plans: [...] MD 04/04/2025 11:00 PM EDT Workstation ID: [id number] Assessment & Plan Assessment & Plan Won [...] SURGERY [facility], [facility] [address] [address] Orthopedic Consult Patient: Won Dennis Date of [...] was evaluated in the emergency department in [place], was discharged with instructions for follow-up. He [...] tablet by mouth Daily. 04/03/2025 Morning Lactobacillus-Inulin ([facility]) capsule Take 200 mg [...] MD 04/04/2025 11:00 PM EDT Workstation ID: [id number] Assessment: Right BKA infection 44-year-old male with [...] DISEASE CONSULT/INITIAL HOSPITAL VISIT Won Dennis 1980 [id number] Date of Consult: 04/05/2025 Admission Date: 04/04/2025 [...] Leonora Shepherd MD, 40 mg at 04/04/25 4682 sennosides-docusate (PERICOLACE) 8.6-50 MG per tablet 2 [...] MD, 20 mg at 04/05/25 09 heparin 29566 units/250 mL (100 units/mL) in 0.45 % [...] Leonora Shepherd MD, 10 mg at 04/04/25 5053 Pharmacy to Dose Heparin, , Not Applicable, [...] Tibia Fibula Right With & Without Contrast [[id number]] Collected: 04/04/252256 Updated: 04/04/252302 Narrative: MRI TIBIA [...] represent a small area of phlegmonous change (rfomlp23 image 10) measuring approximately 1.6 cm which [...] MD 04/04/2025 11:00 PM EDT Workstation ID: [id number] Impression: Right 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 (Treated by ID in [place] Dr. Harris). Dr. Torres treated him with [...] Jr., MD - 04/08/2025 3:51 PM EDT [facility] OPERATIVE REPORT PATIENT NAME: Won Dennis DATE OF : 1980 PREOP DIAGNOSIS: Right Right below-knee amputation infection POSTOP DIAGNOSIS: Same. PROCEDURE: Right Right 10171: Secondary closure below-knee amputation SURGEON: Sushil Dean MD OPERATIVE TEAM: Press Setter: Susi Grullon RN Scrub Person: Mary Paredes Scrub Person Extra: Hortencia Toribio Other: Katt Gotti RN; Charis Neville RN ANESTHETIST: Anesthesiologist: Ulises Hoffman MD CLAIM PROCESSOR: Stan Casillas CRNA Student Nurse Lacquer Sprayer: Karol Albert SRNA ANESTHESIA: Choice ESTIMATED BLOOD [...] CULTURE (Canceled) Sushil Dean Jr., MD 04/08/25 8554 Description: RIGHT LEG DEEP WOUND FOR CULTURE [...] EDT [facility], [place] [address] OPERATIVE REPORT PATIENT NAME: Won Dennis DATE OF : 1980 PREOP DIAGNOSIS: Right Right below knee amputation stump infection POSTOP DIAGNOSIS: Same. PROCEDURE: Right Right 12944: Incision and drainage of surgical site infection 07852: Debridement of skin, subcutaneous tissue, muscle 63832: Wound vacuum-assisted closure SURGEON: Sushil Dean MD OPERATIVE TEAM: Press Setter: Anum Sanchez RN Scrub Person: Hortencia Toribio; Gerald Ivey CYANIDE FURNACE OPERATOR: Anesthesiologist: Luci Alonso DO ANESTHESIA: General [...] 10 mL, 10 mL, Intravenous, PRN, Mario Crolwey DO vancomycin 2750 mg/500 mL 0.9% NS [...] this chart in the absence of a business controller. No orders to display RADIOLOGY: [x] Radiologist's [...] home with outpatient infusion at [facility]. He has an appointment with [facility] at 8:00 am tomorrow. They will do PICC line dressing changes. DEBRA has spoke with Dena at [facility] today multiple times to get setup [...] to get IV ABX at home with [facility]; however, Medicaid lapsed on 04/08. DEBRA was unaware until this morning that Medicaid has lapsed. Patient explained that he has Medicare A and B. CM spoke with KELLEE and given themhis Medicare number [id number], she sent it to Admission. DEBRA spoke with Kerri, with [facility], and explained that he had Medicare A and B. However, it will not cover home infusion. It will be $64.00 a day out of packet. Patients can go to the Infusion center at [facility], and it will cover the cost as an outpatient. He will need to go there every day for infusion. They will be able to do the patients' PICC line dressing changes and lab work. DEBRA called Dena [facility] infusion center they can accept patient and start him. He is known for their facility. The Facility will need to run it through his insurance first. CM faxed the orders over to [facility] at [phone]. CM will follow up with them tomorrow at [facility] to make sure they received the orders. [...] 04/09/2025 2:51 PM EDT Continued Stay Note [facility] Patient Name: Won Dennis Today's Date: 04/09/2025 Admit Date: 04/04/2025 Plan: Home Discharge Plan Row Name 04/09/25 1311 Plan Plan Home Patient/Family in Agreement with Plan yes Plan Comments CM spoke with patient at bedside today. Wheelchair from [employer] is at bedside. Patient getting PICC line [...] note were not included. Discharge Planning Assessment [facility] Patient Name: Won Dennis Today's Date: [...] with family Patient/Family Anticipated Services at Transition classification case managermanager order Anticipated family or friend will provide Discharge Needs Assessment Equipment Currently Used at Home glucometer;shower chair;pulse ox;bp cuff;prosthesis;crutches Equipment Needed After Discharge none Discharge Plan Row Name 04/07/25 1144 Plan Plan Home Patient/Family in Agreement with Plan yes Plan Comments CM spoke with patient at bedside today. Patient lives with and his 5 kids in [facility] [place]. 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 He has walker, cane, shower chair, and crutches. He requested a wheelchair for home. [facility] He is not current with home health services. PCP is Dr. Jordan. Insurance is [place]. Patient discharge plan is home with priavte transport. CM will follow for any discharge needs. Final Discharge Disposition Code 01 - home or self-care Continued Care and Services - Admitted Since 04/04/2025 No active coordination exists. Demographic Summary Row Name 04/07/25 1143 General Information Arrived From hospital Preferred Language American Functional Status Row Name 04/07/25 1143 Functional [...] 04/11/2025 4:02 AM EDT [facility] RBC 4.70 4.14 - 5.80 10*6/mm3 04/11/2025 4:02 AM [facility] Hemoglobin 12.8(L) 13.0 - 17.7 g/dL 04/11/2025 4:02 AM [facility] Hematocrit 40.5 37.5 - 51.0 % 04/11/2025 4:02 AM [facility] MCV 86.2 79.0 - 97.0 fL 04/11/2025 4:02 AM [facility] MCH 27.2 26.6 - 33.0 pg 04/11/2025 4:02 AM [facility] MCHC 31.6 31.5 - 35.7 g/dL 04/11/2025 4:02 AM [facility] RDW 12.9 12.3 - 15.4 % 04/11/2025 4:02 AM [facility] RDW-SD 40.5 37.0 - 54.0 fl 04/11/2025 4:02 AM [facility] MPV 9.2 6.0 - 12.0 fL 04/11/2025 4:02 AM [facility] Platelets 267 140 [...] 0.3 - 6.2 % 04/11/2025 4:02 AM [facility] Basophil % 0.4 0.0 - 1.5 % 04/11/2025 4:02 AM [facility] Immature Grans % 0.4 0.0 - 0.5 % 04/11/2025 4:02 AM [facility] Neutrophils, Absolute 4.69 1.70 - 7.00 10*3/mm3 04/11/2025 4:02 AM EDT [facility] Lymphocytes, Absolute 2.07 0.70 - 3.10 10*3/mm3 04/11/2025 4:02 AM EDT [facility] Monocytes, Absolute 0.73 0.10 - 0.90 10*3/mm3 04/11/2025 4:02 AM EDT [facility] Eosinophils, Absolute 0.32 0.00 - 0.40 10*3/mm3 04/11/2025 4:02 AM EDT [facility] Basophils, Absolute 0.03 0.00 - 0.20 10*3/mm3 04/11/2025 4:02 AM EDT [facility] [facility] Immature Grans, Absolute 0.03 0.00 - 0.05 10*3/mm3 04/11/2025 4:02 AM EDT [facility] nRBC 0.0 0.0 - 0.2 /100 WBC 04/11/2025 4:02 AM EDT [facility] Blood Venipuncture / Unknown 04/11/2025 3:40 AM EDT 04/11/2025 3:59 AM EDT us Sushil Dean Jr., MD LAB BLOOD ORDERABLES Fi nal Result [facility]
[address] [place] [address], * (ABNORMAL) Comprehensive Metabolic Panel (04/11/2025 3:40 AM EDT) [facility] Signature Glucose 108(H) 65 - 99 mg/dL 04/11/2025 4:19 AM EDT [facility] BUN 12.5 6.0 - 20.0 mg/dL 04/11/2025 4:19 AM EDT [facility] Creatinine 0.68(L) 0.76 - 1.27 mg/dL 04/11/2025 4:19 AM [facility] Sodium 140 136 - 145 mmol/L 04/11/2025 4:19 AM [facility] Potassium 3.8 3.5 - 5.2 mmol/L 04/11/2025 4:19 AM [facility] Chloride 105 98 - 107 mmol/L 04/11/2025 4:19 AM [facility] CO2 28.2 22.0 - 29.0 mmol/L 04/11/2025 4:19 AM [facility] Calcium 8.2(L) 8.6 - 10.5 mg/dL 04/11/2025 4:19 AM [facility] Total Protein 6.1 6.0 - 8.5 g/dL 04/11/2025 4:19 AM [facility] Albumin 3.1(L) 3.5 - 5.2 g/dL 04/11/2025 4:19 AM [facility] ALT (SGPT) 52(H) 1 - 41 U/L 04/11/2025 4:19 AM [facility] AST (SGOT) 40 1 - 40 U/L 04/11/2025 4:19 AM [facility] Alkaline Phosphatase 99 39 - 117 U/L 04/11/2025 4:19 AM [facility] Total Bilirubin 0.2 0.0 - 1.2 mg/dL 04/11/2025 4:19 AM [facility] Globulin 3.0 gm/dL 04/11/2025 4:19 AM [facility] Comment:Calculated Result A/G Ratio 1.0 g/dL 04/11/2025 4:19 AM [facility] BUN/Creatinine Ratio 18.4 7.0 - 25.0 04/11/2025 4:19 AM [facility] Anion Gap 6.8 5.0 - 15.0 mmol/L 04/11/2025 4:19 AM [facility] eGFR 117.5 >60.0 mL/min/1.7 3 04/11/2025 4:19 AM EDT [facility] Blood Venipuncture / Unknown 04/11/2025 3:40 AM EDT 04/11/2025 3:56 AM EDT [facility] - 04/11/2025 4:19 [...] include race as a factor Rosario Hill [employer] LAB BLOOD ORDERABLES Final Result [facility]
[address] [place] [address], * (ABNORMAL) CBC Auto Differential (04/10/2025 3:46 AM EDT) WBC 9.60 3.40 - 10.80 10*3/mm3 04/10/2025 3:56 AM EDT [facility] RBC 4.67 4.14 - 5.80 10*6/mm3 04/10/2025 3:56 AM EDT [facility] Hemoglobin 12.9(L) 13.0 - 17.7 g/dL 04/10/2025 3:56 AM EDT [facility] Hematocrit 40.1 37.5 - 51.0 % 04/10/2025 3:56 AM EDT [facility] MCV 85.9 79.0 - 97.0 fL 04/10/2025 3:56 AM EDT [facility] MCH 27.6 26.6 - 33.0 pg 04/10/2025 3:56 AM EDT [facility] MCHC 32.2 31.5 - 35.7 g/dL 04/10/2025 3:56 AM EDT.[facility] RDW 12.9 12.3 - 15.4 % 04/10/2025 3:56 AM [facility] RDW-SD 40.5 37.0 - 54.0 fl 04/10/2025 3:56 AM [facility] MPV 9.5 6.0 - 12.0 fL 04/10/2025 3:56 AM EDT [facility] Platelets 227 140 - 450 10*3/mm3 04/10/2025 3:56 AM [facility] Neutrophil % 59.1 42.7 - 76.0 % 04/10/2025 3:56 AM [facility] Lymphocyte % 29.0 19.6 - 45.3 % 04/10/2025 3:56 AM [facility] Monocyte % 8.1 5.0 - 12.0 % 04/10/2025 3:56 AM EDT.[facility] Eosinophil % 3.2 0.3 - 6.2 % 04/10/2025 3:56 AM [facility] Basophil % 0.4 0.0 - 1.5 % 04/10/2025 3:56 AM [facility] Immature Grans % 0.2 0.0 - 0.5 % 04/10/2025 3:56 AM [facility] Neutrophils, Absolute 5.67 1.70 - 7.00 10*3/mm3 04/10/2025 3:56 AM EDT.[facility] Lymphocytes, Absolute 2.78 0.70 - 3.10 10*3/mm3 04/10/2025 3:56 AM EDT.[facility] Monocytes, Absolute 0.78 0.10 - 0.90 10*3/mm3 04/10/2025 3:56 AM EDT.[facility] Eosinophils, Absolute 0.31 0.00 - 0.40 10*3/mm3 04/10/2025 3:56 AM EDT.[facility] Basophils, Absolute 0.04 0.00 - 0.20 10*3/mm3 04/10/2025 3:56 AM EDT [facility] Immature Grans, Absolute 0.02 0.00 - 0.05 10*3/mm3 04/10/2025 3:56 AM EDT [facility] nRBC 0.0 0.0 - 0.2 /100 WBC 04/10/2025 3:56 AM EDT [facility] Blood Venipuncture / Unknown 04/10/2025 3:46 AM EDT 04/10/2025 3:53 AM EDT us Jason Álvarez DO LAB BLOOD ORDERABLES Final Resul t [facility]
[address] [place] [address], * (ABNORMAL) Basic Metabolic Panel (04/10/2025 3:46 AM EDT) Glucose 125(H) 65 - 99 mg/dL 04/10/2025 4:20 AM EDT [facility] BUN 15.9 6.0 - 20.0 mg/dL 04/10/2025 4:20 AM EDT [facility] Creatinine 0.77 0.76 - 1.27 mg/dL 04/10/2025 4:20 AM EDT [facility] Sodium 137 136 - 145 mmol/L 04/10/2025 4:20 AM EDT [facility] Potassium 3.9 3.5 - 5.2 mmol/L 04/10/2025 4:20 AM EDT [facility] Chloride 102 98 - 107 mmol/L 04/10/2025 4:20 AM EDT [facility] CO2 26.9 22.0 - 29.0 mmol/L 04/10/2025 4:20 AM EDT [facility] Calcium 7.9(L) 8.6 - 10.5 mg/dL 04/10/2025 4:20 AM EDT [facility] BUN/Creatinine Ratio 20.6 7.0 - 25.0 04/10/2025 4:20 AM EDT [facility] Anion Gap 8.1 5.0 - 15.0 mmol/L 04/10/2025 4:20 AM EDT [facility] eGFR 113.2 >60.0 mL/min/1.7 3 04/10/2025 4:20 AM EDT [facility] Blood Venipuncture / Unknown 04/10/2025 3:46 AM EDT 04/10/2025 3:52 AM EDT Narrative [facility] - 04/10/2025 4:20 AM EDT [...] ORDERABLES Final Resul t [facility]
[address] [place] [address], * Heparin Anti-Xa (04/10/2025 3:46 AM EDT) Heparin Anti-Xa ([facility]) 0.35 0.30 - 0.70 IU/ml 04/10/2025 4:23 AM EDT [facility] Blood Venipuncture / Unknown 04/10/2025 3:46 AM EDT 04/10/2025 3:53 AM EDT Larisa Hamilton [facility] LAB BLOOD ORDERABLES Final R esult [facility]
[address] [place] [address], * Heparin Anti-Xa (04/09/2025 10:05 AM EDT) Pathologist [facility] Heparin Anti-Xa ([facility]) 0.36 0.30 - 0.70 IU/ml 04/09/2025 11:12 AM EDT [facility] Blood Venipuncture / Unknown 04/09/2025 10:05 AM EDT 04/09/2025 10:47 AM EDT Larisa Hamilton [facility] LAB BLOOD ORDERABLES Final R esult [facility]
[address] [place] [address], * (ABNORMAL) CBC Auto Differential (04/09/2025 4:18 AM EDT) Pathologist [facility] WBC 11.00(H) 3.40 - 10.80 10*3/mm3 04/09/2025 4:50 AM EDT [facility] RBC 4.70 4.14 - 5.80 10*6/mm3 04/09/2025 4:50 AM EDT [facility] Hemoglobin 13.0 13.0 - 17.7 g/dL 04/09/2025 4:50 AM EDT [facility] Hematocrit 40.4 37.5 - 51.0 % 04/09/2025 4:50 AM EDT [facility] MCV 86.0 79.0 - 97.0 fL 04/09/2025 4:50 AM EDT [facility] MCH 27.7 26.6 - 33.0 pg 04/09/2025 4:50 AM EDT [facility] MCHC 32.2 31.5 - 35.7 g/dL 04/09/2025 4:50 AM EDT [facility] RDW 12.8 12.3 - 15.4 % 04/09/2025 4:50 AM [facility] RDW-SD 39.9 37.0 - 54.0 fl 04/09/2025 4:50 AM [facility] MPV 10.0 6.0 - 12.0 fL 04/09/2025 4:50 AM [facility] Platelets 211 140 - 450 10*3/mm3 04/09/2025 4:50 AM EDT.[facility] Neutrophil % 74.8 42.7 - 76.0 % 04/09/2025 4:50 AM [facility] Lymphocyte % 15.4(L) 19.6 - 45.3 % 04/09/2025 4:50 AM [facility] Monocyte % 8.5 5.0 - 12.0 % 04/09/2025 4:50 AM [facility] Eosinophil % 0.6 0.3 - 6.2 % 04/09/2025 4:50 AM [facility] Basophil % 0.4 0.0 - 1.5 % 04/09/2025 4:50 AM [facility] Immature Grans % 0.3 0.0 - 0.5 % 04/09/2025 4:50 AM [facility] Neutrophils, Absolute 8.23(H) 1.70 - 7.00 10*3/mm3 04/09/2025 4:50 AM [facility] Lymphocytes, Absolute 1.69 0.70 - 3.10 10*3/mm3 04/09/2025 4:50 AM [facility] Monocytes, Absolute 0.94(H) 0.10 - 0.90 10*3/mm3 04/09/2025 4:50 AM EDT.[facility] Eosinophils, Absolute 0.07 0.00 - 0.40 10*3/mm3 04/09/2025 4:50 AM [facility] Basophils, Absolute 0.04 0.00 - 0.20 10*3/mm3 04/09/2025 4:50 AM [facility] Immature Grans, Absolute 0.03 0.00 - 0.05 10*3/mm3 04/09/2025 4:50 AM EDT [facility] nRBC 0.0 0.0 - 0.2 /100 WBC 04/09/2025 4:50 AM EDT [facility] Blood Venipuncture / Unknown 04/09/2025 4:18 AM EDT 04/09/2025 4:31 AM EDT Sushil Dean Jr., MD LAB BLOOD ORDERABLES Fi nal Result [facility]
[address] [place] [address], * Heparin Anti-Xa (04/09/2025 4:18 AM EDT) Heparin Anti-Xa ([facility]) 0.41 0.30 - 0.70 IU/ml 04/09/2025 4:53 AM EDT [facility] Blood Venipuncture / Unknown 04/09/2025 4:18 AM EDT 04/09/2025 4:31 AM EDT Una LundbergD LAB BLOOD ORDERABLES Final R esult [facility]
[address] [place] [address], * (ABNORMAL) Basic Metabolic Panel (04/09/2025 4:18 AM EDT) Glucose 147(H) 65 - 99 mg/dL 04/09/2025 5:33 AM EDT [facility] BUN 23.0(H) 6.0 - 20.0 mg/dL 04/09/2025 5:33 AM EDT [facility] Creatinine 1.15 0.76 - 1.27 mg/dL 04/09/2025 5:33 AM EDT [facility] Sodium 135(L) 136 - 145 mmol/L 04/09/2025 5:33 AM EDT [facility] Potassium 4.2 3.5 - 5.2 mmol/L 04/09/2025 5:33 AM EDT [facility] Chloride 100 98 - 107 mmol/L 04/09/2025 5:33 AM EDT [facility] CO2 26.0 22.0 - 29.0 mmol/L 04/09/2025 5:33 AM EDT [facility] Calcium 8.2(L) 8.6 - 10.5 mg/dL 04/09/2025 5:33 AM EDT [facility] BUN/Creatinine Ratio 20.0 7.0 - 25.0 04/09/2025 5:33 AM EDT [facility] Anion Gap 9.0 5.0 - 15.0 mmol/L 04/09/2025 5:33 AM EDT [facility] eGFR 80.5 >60.0 mL/min/1.7 3 04/09/2025 5:33 AM EDT [facility] Blood Venipuncture / Unknown 04/09/2025 4:18 AM EDT 04/09/2025 4:29 AM EDT [facility] - 04/09/2025 5:33 AM EDT [...] ORDERABLES Fi nal Result [facility]
[address] [place] [address], * Wound Culture - Swab, Leg, Right (04/08/2025 3:40 PM EDT) Wound Culture No growth at 3 days ALIZA 04/11/2025 10:40 AM EDT [facility] Gram Stain Few (2+) WBCs seen 04/11/2025 10:40 AM EDT [facility] Gram Stain No organisms seen 04/11/2025 10:40 AM EDT [facility] Swab Structure of right lower limb / Unknown 04/08/2025 3:40 PM EDT 04/08/2025 8:05 PM EDT Sushil Dean Jr., MD MICROBIOLOGY - GENERAL ORDERABLES Final Result Performing Organization Address City/[facility]/ZIP Co de Phone Number [facility]
[address] [place] [address], [facility]
[address] [place] [address], * Anaerobic Culture - Swab, Leg, Right (04/08/2025 3:40 PM EDT) Pathologist [facility] Anaerobic Culture No anaerobes isolated at 5 days ALIZA 04/13/2025 7:24 AM EDT [facility] Swab Structure of right lower limb / Unknown 04/08/2025 3:40 PM EDT 04/08/2025 8:05 PM EDT Sushil Dean Jr., MD MICROBIOLOGY - GENERAL ORDERABLES Final Result [facility]
[address] [place] [address], * Scan Slide (04/08/2025 8:41 AM EDT) RBC Morphology Normal Normal 04/08/2025 11:02 AM EDT [facility] WBC Morphology Normal Normal 04/08/2025 11:02 AM EDT [facility] Platelet Estimate Adequate Normal 04/08/2025 11:02 AM EDT [facility] Clumped Platelets Present None Seen 04/08/2025 11:02 AM EDT [facility] Blood Venipuncture / Unknown 04/08/2025 8:41 AM EDT 04/08/2025 9:10 AM EDT Una Minda PharmD LAB BLOOD ORDERABLES Final R esult [facility]
[address] [place] [address], * (ABNORMAL) CBC Auto Differential (04/08/2025 8:41 AM EDT) WBC 10.07 3.40 - 10.80 10*3/mm3 04/08/2025 11:02 AM EDT [facility] RBC 5.01 4.14 - 5.80 10*6/mm3 04/08/2025 11:02 AM EDT [facility] Hemoglobin 14.0 13.0 - 17.7 g/dL 04/08/2025 11:02 AM EDT [facility] Hematocrit 42.7 37.5 - 51.0 % 04/08/2025 11:02 AM EDT [facility] MCV 85.2 79.0 - 97.0 fL 04/08/2025 11:02 AM EDT [facility] MCH 27.9 26.6 - 33.0 pg 04/08/2025 11:02 AM EDT [facility] MCHC 32.8 31.5 - 35.7 g/dL 04/08/2025 11:02 AM EDT [facility] RDW 12.6 12.3 - 15.4 % 04/08/2025 11:02 AM EDT [facility] [...] 1.70 - 7.00 10*3/mm3 04/08/2025 11:02 AM [facility] Lymphocytes, Absolute 0.94 0.70 - 3.10 10*3/mm3 04/08/2025 11:02 AM [facility] Monocytes, Absolute 0.46 0.10 - 0.90 10*3/mm3 04/08/2025 11:02 AM [facility] Eosinophils, Absolute 0.03 0.00 - 0.40 10*3/mm3 04/08/2025 11:02 AM [facility] Basophils, Absolute 0.02 0.00 - 0.20 10*3/mm3 04/08/2025 11:02 AM [facility] Immature Grans, Absolute 0.05 0.00 - 0.05 10*3/mm3 04/08/2025 11:02 AM EDT [facility] nRBC 0.0 0.0 - 0.2 /100 WBC 04/08/2025 11:02 AM EDT [facility] Blood Venipuncture / Unknown 04/08/2025 8:41 AM EDT 04/08/2025 9:10 AM EDT Una Perla PharmD LAB BLOOD ORDERABLES Final R esult [facility]
[address] [place] [address], * (ABNORMAL) Basic Metabolic Panel (04/08/2025 8:41 AM EDT) Glucose 125(H) 65 - 99 mg/dL 04/08/2025 9:51 AM EDT [facility] BUN 13.2 6.0 - 20.0 mg/dL 04/08/2025 9:51 AM EDT [facility] Creatinine 0.69(L) 0.76 - 1.27 mg/dL 04/08/2025 9:51 AM EDT [facility] Sodium 136 136 - 145 mmol/L 04/08/2025 9:51 AM EDT [facility] Potassium 4.6 3.5 - 5.2 mmol/L 04/08/2025 9:51 AM EDT [facility] Chloride 102 98 - 107 mmol/L 04/08/2025 9:51 AM EDT [facility] CO2 23.5 22.0 - 29.0 mmol/L 04/08/2025 9:51 AM EDT [facility] Calcium 8.4(L) 8.6 - 10.5 mg/dL 04/08/2025 9:51 AM EDT [facility] BUN/Creatinine Ratio 19.1 7.0 - 25.0 04/08/2025 9:51 AM EDT [facility] Anion Gap 10.5 5.0 - 15.0 mmol/L 04/08/2025 9:51 AM EDT [facility] eGFR 117.0 >60.0 mL/min/1.7 3 04/08/2025 9:51 AM EDT [facility] Blood Venipuncture / Unknown 04/08/2025 8:41 AM EDT 04/08/2025 9:09 AM EDT Narrative [facility] - 04/08/2025 9:51 AM EDT [...] City/[facility]/ZIP Co de Phone Number [facility]
[address] [place] [address], * Heparin Anti-Xa (04/08/2025 8:41 AM EDT) Heparin Anti-Xa ([facility]) 0.33 0.30 - 0.70 IU/ml 04/08/2025 9:40 AM EDT [facility] Blood Venipuncture / Unknown 04/08/2025 8:41 AM EDT 04/08/2025 9:10 AM EDT us Sushil Dean Jr., MD LAB BLOOD ORDERABLES Fi nal Result [facility]
[address] [place] [address], * FL C Arm During Surgery (04/07/2025 9:32 PM EDT) Narrative SYSTEMGENERATED, DOCUMENTATION - 04/07/2025 9:38 PM EDT This procedure was auto-finalized with no dictation required. us Sushil Dean Jr., MD IMG FLUOROSCOPY ORDERAB LES Final Result * Wound Culture - Swab, Leg, Right (04/07/2025 9:14 PM EDT) Wound Culture No growth at 3 days ALIZA 04/11/2025 10:40 AM EDT [facility] Gram Stain Occasional WBCs seen 04/11/2025 10:40 AM EDT [facility] Gram Stain No organisms seen 04/11/2025 10:40 AM EDT [facility] Swab Structure of right lower limb / Unknown Collection / Unknown 04/07/2025 9:14 PM EDT 04/08/2025 4:36 AM EDT us Sushil Dean Jr., MD MICROBIOLOGY - GENERAL ORDERABLES Final Result Performing Organization Address City/[facility]/ZIP Co de Phone Number [facility]
[address] [place] [address], [facility]
[address] [place] [address], * Anaerobic Culture - Swab, Leg, Right (04/07/2025 9:14 PM EDT) Anaerobic Culture No anaerobes isolated at 5 days ALIZA 04/13/2025 7:21 AM EDT [facility] Swab Structure of right lower limb / Unknown Collection / Unknown 04/07/2025 9:14 PM EDT 04/08/2025 4:36 AM EDT us Sushil Dean Jr., MD MICROBIOLOGY - GENERAL ORDERABLES Final Result [facility]
[address] [place] [address], * Anaerobic Culture - Tissue, Leg (04/07/2025 9:13 PM EDT) Pathologist [facility] Anaerobic Culture No anaerobes isolated at 5 days ALIZA 04/13/2025 7:21 AM EDT [facility] Tissue Lower limb structure / Unknown Collection / Unknown 04/07/2025 9:13 PM EDT 04/08/2025 4:54 AM EDT Jason Álvarez DO MICROBIOLOGY - GENERAL ORDERABLE S Final Result [facility]
[address] [place] [address], * Tissue / Bone Culture - Tissue, Leg, Right (04/07/2025 9:13 PM EDT) [facility] Tissue Culture No growth at 3 days ALIZA 04/11/2025 10:36 AM EDT [facility] Gram Stain Rare (1+) WBCs seen 04/11/2025 10:36 AM EDT [facility] Gram Stain No organisms seen 04/11/2025 10:36 AM EDT [facility] Tissue Structure of right lower limb / Unknown 04/07/2025 9:13 PM EDT 04/08/2025 4:54 AM EDT Sushil Dean Jr., MD MICROBIOLOGY - GENERAL ORDERABLES Final Result [facility]
[address] [place] [address], [facility]
[address] [place] [address], * (ABNORMAL) Wound Culture - Swab, Leg, Right (04/07/2025 9:07 PM EDT) Pathologist [facility] Wound Culture Light growth (2+) Staphylococcus aureus, MRSA(A) ALIZA 04/10/2025 10:38 AM EDT [facility] Comment: Methicillin resistant Staphylococcus aureus, Patient may be an isolation risk. Gram Stain Few (2+) WBCs seen 04/10/2025 10:38 AM EDT [facility] Gram Stain No organisms seen 10:38 AM EDT [facility] Swab Structure of right lower [...] MD MICROBIOLOGY - GENERAL ORDERABLES Final Result [facility]
[address] [place] [address], [place] [phone] [facility]
[address] [place] [address], [place] [phone] * Anaerobic Culture - Swab, Leg, Right (04/07/2025 9:07 PM EDT) Anaerobic Culture No anaerobes isolated at 5 days ALIZA 04/13/2025 7:21 AM EDT [facility] Swab Structure of right lower limb / Unknown Collection / Unknown 04/07/2025 9:07 PM EDT 04/08/2025 4:36 AM EDT us Sushil Dean Jr., MD MICROBIOLOGY - GENERAL ORDERABLES Final Result [facility]
[address] [place] [address], * Heparin Anti-Xa (04/07/2025 9:10 AM EDT) [facility] Heparin Anti-Xa ([facility]) 0.30 0.30 - 0.70 IU/ml 04/07/2025 10:12 AM EDT [facility] Blood Venipuncture / Unknown 04/07/2025 9:10 AM EDT 04/07/2025 9:38 AM EDT Una Perla PharmD LAB BLOOD ORDERABLES Final R esult [facility]
[address] [place] [address], * (ABNORMAL) CBC Auto Differential (04/07/2025 9:10 AM EDT) [facility] WBC 8.63 3.40 - 10.80 10*3/mm3 04/07/2025 9:50 AM EDT [facility] RBC 5.23 4.14 - 5.80 10*6/mm3 04/07/2025 9:50 AM EDT [facility] Hemoglobin 14.7 13.0 - 17.7 g/dL 04/07/2025 9:50 AM EDT [facility] Hematocrit 44.8 37.5 - 51.0 % 04/07/2025 9:50 AM EDT [facility] MCV 85.7 79.0 - 97.0 fL 04/07/2025 9:50 AM EDT [facility] MCH 28.1 26.6 - 33.0 pg 04/07/2025 9:50 AM EDT [facility] MCHC 32.8 31.5 - 35.7 g/dL 04/07/2025 9:50 AM EDT [facility] RDW 12.8 12.3 - 15.4 % 04/07/2025 9:50 AM [facility] RDW-SD 39.9 37.0 - 54.0 fl 04/07/2025 9:50 AM [facility] MPV 10.8 6.0 - 12.0 fL 04/07/2025 9:50 AM [facility] Platelets 149 140 - 450 10*3/mm3 04/07/2025 9:50 AM [facility] Neutrophil % 66.7 42.7 - 76.0 % 04/07/2025 9:50 AM [facility] Lymphocyte % 20.5 19.6 - 45.3 % 04/07/2025 9:50 AM [facility] Monocyte % 9.8 5.0 - 12.0 % 04/07/2025 9:50 AM [facility] Eosinophil % 2.1 0.3 - 6.2 % 04/07/2025 9:50 AM [facility] Basophil % 0.3 0.0 - 1.5 % 04/07/2025 9:50 AM [facility] Immature Grans % 0.6(H) 0.0 - 0.5 % 04/07/2025 9:50 AM [facility] Neutrophils, Absolute 5.75 1.70 - 7.00 10*3/mm3 04/07/2025 9:50 AM [facility] Lymphocytes, Absolute 1.77 0.70 - 3.10 10*3/mm3 04/07/2025 9:50 AM [facility] Monocytes, Absolute 0.85 0.10 - 0.90 10*3/mm3 04/07/2025 9:50 AM [facility] Eosinophils, Absolute 0.18 0.00 - 0.40 10*3/mm3 04/07/2025 9:50 AM [facility] Basophils, Absolute 0.03 0.00 - 0.20 10*3/mm3 04/07/2025 9:50 AM [facility] Immature Grans, Absolute 0.05 0.00 - 0.05 10*3/mm3 04/07/2025 9:50 AM EDT [facility] nRBC 0.0 0.0 - 0.2 /100 WBC 04/07/2025 9:50 AM EDT [facility] Blood Venipuncture / Unknown 04/07/2025 9:10 AM EDT 04/07/2025 9:38 AM EDT Jasonalfonso Álvarez LAB BLOOD ORDERABLES Final Resul t [facility]
[address] [place] [address], * (ABNORMAL) Basic Metabolic Panel (04/07/2025 9:10 AM EDT) Glucose 112(H) 65 - 99 mg/dL 04/07/2025 10:19 AM EDT [facility] BUN 13.1 6.0 - 20.0 mg/dL 04/07/2025 10:19 AM EDT [facility] Creatinine 0.77 0.76 - 1.27 mg/dL 04/07/2025 10:19 AM EDT [facility] Sodium 139 136 - 145 mmol/L 04/07/2025 10:19 AM EDT [facility] Potassium 4.2 3.5 - 5.2 mmol/L 04/07/2025 10:19 AM EDT [facility] Comment:Specimen hemolyzed. Result may be falsely elevated. Chloride 105 98 - 107 mmol/L 04/07/2025 10:19 AM EDT [facility] CO2 24.8 22.0 - 29.0 mmol/L 04/07/2025 10:19 AM EDT [facility] Calcium 8.6 8.6 - 10.5 mg/dL 04/07/2025 10:19 AM EDT [facility] BUN/Creatinine Ratio 17.0 7.0 - 25.0 04/07/2025 10:19 AM EDT [facility] Anion Gap 9.2 5.0 - 15.0 mmol/L 04/07/2025 10:19 AM EDT [facility] eGFR 113.2 >60.0 mL/min/1.7 3 04/07/2025 10:19 AM EDT [facility] Blood Venipuncture / Unknown 04/07/2025 9:10 AM EDT 04/07/2025 9:38 AM EDT Narrative [facility] - 04/07/2025 10:19 AM EDT [...] Álvarez LAB BLOOD ORDERABLES Final Resul t [facility]
[address] [place] [address], * MRI Tibia Fibula Right With & [...] [place] 04/07/2025 9:58 AM EDT Workstation ID: [id number] Narrative 04/07/2025 9:58 AM EDT MRI TIBIA [...] [place] 04/07/2025 9:58 AM EDT Workstation ID: [id number] Sushil Dean Jr., MD IM MRI ORDERABLES Mary Beth l Result * Heparin Anti-Xa (04/07/2025 1:42 AM EDT) [facility] Heparin Anti-Xa (UFH) 0.38 0.30 - 0.70 IU/ml 04/07/2025 2:14 AM EDT [facility] Blood Venipuncture / Unknown 04/07/2025 1:42 AM EDT 04/07/2025 1:54 AM EDT Chelsie Turpin [facility] LAB BLOOD ORDERABLES Final R esult [facility]
[address] [place] [address], * Heparin Anti-Xa (04/06/2025 7:16 PM EDT) [facility] Heparin Anti-Xa (UFH) 0.33 0.30 - 0.70 IU/ml 04/06/2025 7:50 PM EDT [facility] Blood Venipuncture / Unknown 04/06/2025 7:16 PM EDT 04/06/2025 7:35 PM EDT Cherri Beatty RP LAB BLOOD ORDERABLES Final Res ult Performing Organization Address City/[facility]/ZIP Co de Phone Number [facility]
[address] [place] [address], * Potassium (04/06/2025 7:16 PM EDT) Potassium 4.0 3.5 - 5.2 mmol/L 04/06/2025 7:53 PM EDT [facility] Blood Venipuncture / Unknown 04/06/2025 7:16 PM EDT 04/06/2025 7:35 PM EDT Jason Álvarez DO LAB BLOOD ORDERABLES Final Resul t Performing Organization Address [facility] de Phone Number [facility]
[address] [place] [address], * (ABNORMAL) Heparin Anti-Xa (04/06/2025 12:36 PM EDT) Heparin Anti-Xa (UFH) 0.24(L) 0.30 - 0.70 IU/ml 04/06/2025 1:23 PM EDT [facility] Blood Venipuncture / Unknown 04/06/2025 12:36 PM EDT 04/06/2025 1:07 PM EDT Una LundbergD LAB BLOOD ORDERABLES Final R esult Performing Organization Address [facility] Co de Phone Number [facility]
[address] [place] [address], * (ABNORMAL) Heparin Anti-Xa (04/06/2025 3:42 AM EDT) Heparin Anti-Xa (UFH) 0.25(L) 0.30 - 0.70 IU/ml 04/06/2025 5:30 AM EDT [facility] Blood Venipuncture / Unknown 04/06/2025 3:42 AM EDT 04/06/2025 4:59 AM EDT Chelsie Turpin [facility] LAB BLOOD ORDERABLES Final R esult [facility]
[address] [place] [address], * (ABNORMAL) Basic Metabolic Panel (04/06/2025 3:42 AM EDT) Pathologist [facility] Glucose 94 65 - 99 mg/dL 04/06/2025 5:59 AM EDT [facility] BUN 12.8 6.0 - 20.0 mg/dL 04/06/2025 5:59 AM EDT [facility] Creatinine 0.80 0.76 - 1.27 mg/dL 04/06/2025 5:59 AM EDT [facility] Sodium 138 136 - 145 mmol/L 04/06/2025 5:59 AM EDT [facility] Potassium 3.6 3.5 - 5.2 mmol/L 04/06/2025 5:59 AM EDT [facility] Chloride 103 98 - 107 mmol/L 04/06/2025 5:59 AM EDT [facility] CO2 24.2 22.0 - 29.0 mmol/L 04/06/2025 5:59 AM EDT [facility] Calcium 8.0(L) 8.6 - 10.5 mg/dL 04/06/2025 5:59 AM EDT [facility] BUN/Creatinine Ratio 16.0 7.0 - 25.0 04/06/2025 5:59 AM EDT [facility] Anion Gap 10.8 5.0 - 15.0 mmol/L 04/06/2025 5:59 AM EDT [facility] eGFR 111.9 >60.0 mL/min/1.7 3 04/06/2025 5:59 AM EDT [facility] Blood Venipuncture / Unknown 04/06/2025 3:42 AM EDT 04/06/2025 5:20 AM EDT [facility] - 04/06/2025 5:59 AM EDT [...] ORDERABLES Final Resul t [facility]
[address] [place] [address], * (ABNORMAL) CBC Auto Differential (04/06/2025 3:41 AM EDT) WBC 10.86(H) 3.40 - 10.80 10*3/mm3 04/06/2025 5:04 AM EDT [facility] RBC 5.08 4.14 - 5.80 10*6/mm3 04/06/2025 5:04 AM EDT [facility] Hemoglobin 13.9 13.0 - 17.7 g/dL 04/06/2025 5:04 AM EDT [facility] Hematocrit 43.7 37.5 - 51.0 % 04/06/2025 5:04 AM EDT [facility] MCV 86.0 79.0 - 97.0 fL 04/06/2025 5:04 AM [facility] MCH 27.4 26.6 - 33.0 pg 04/06/2025 5:04 AM [facility] MCHC 31.8 31.5 - 35.7 g/dL 04/06/2025 5:04 AM [facility] RDW 12.8 12.3 - 15.4 % 04/06/2025 5:04 AM [facility] RDW-SD 40.0 37.0 - 54.0 fl 04/06/2025 5:04 AM [facility] MPV 11.7 6.0 - 12.0 fL 04/06/2025 5:04 AM [facility] Platelets 115(L) 140 - 450 10*3/mm3 04/06/2025 5:04 AM [facility] Neutrophil % 65.3 42.7 - 76.0 % 04/06/2025 5:04 AM [facility] Lymphocyte % 20.5 19.6 - 45.3 % 04/06/2025 5:04 AM [facility] Monocyte % 11.8 5.0 - 12.0 % 04/06/2025 5:04 AM [facility] Eosinophil % 1.8 0.3 - 6.2 % 04/06/2025 5:04 AM [facility] Basophil % 0.3 0.0 - 1.5 % 04/06/2025 5:04 AM [facility] Immature Grans % 0.3 0.0 - 0.5 % 04/06/2025 5:04 AM [facility] Neutrophils, Absolute 7.09(H) 1.70 - 7.00 10*3/mm3 04/06/2025 5:04 AM [facility] Lymphocytes, Absolute 2.23 0.70 - 3.10 10*3/mm3 04/06/2025 5:04 AM [facility] Monocytes, Absolute 1.28(H) 0.10 - 0.90 10*3/mm3 04/06/2025 5:04 AM EDT [facility] Eosinophils, Absolute 0.20 0.00 - 0.40 10*3/mm3 04/06/2025 5:04 AM EDT [facility] Basophils, Absolute 0.03 0.00 - 0.20 10*3/mm3 04/06/2025 5:04 AM EDT [facility] Immature Grans, Absolute 0.03 0.00 - 0.05 10*3/mm3 04/06/2025 5:04 AM EDT [facility] nRBC 0.0 0.0 - 0.2 /100 WBC 04/06/2025 5:04 AM EDT [facility] Blood Venipuncture / Unknown 04/06/2025 3:41 AM EDT 04/06/2025 4:58 AM EDT Jason Álvarez DO LAB BLOOD ORDERABLES Final Resul t Performing Organization Address City/[facility]/ZIP Co de Phone Number [facility]
[address] [place] [address], [place] [phone] * Heparin Anti-Xa (04/05/2025 8:43 PM EDT) [facility] Heparin Anti-Xa (UFH) 0.38 0.30 - 0.70 IU/ml 04/05/2025 9:09 PM EDT [facility] Blood Venipuncture / Unknown 04/05/2025 8:43 PM EDT 04/05/2025 8:55 PM EDT us Cherri Beatty [facility] LAB BLOOD ORDERABLES Final Res ult Performing Organization Address City/[facility]/ZIP Co de Phone Number [facility]
[address] [place] [address], [place] [phone] * CK (04/05/2025 12:15 PM EDT) Pathologist [facility] Creatine Kinase 140 20 - 200 U/L 04/05/2025 1:31 PM EDT [facility] Blood Venipuncture / Unknown 04/05/2025 12:15 PM EDT 04/05/2025 1:03 PM EDT Carlton Mead MD LAB BLOOD ORDERABLES Final R esult Performing Organization Address City/[facility]/ZIP Co de Phone Number [facility]
[address] [place] [address], * (ABNORMAL) Heparin Anti-Xa (04/05/2025 12:15 PM EDT) Heparin Anti-Xa (UFH) 0.17(L) 0.30 - 0.70 IU/ml 04/05/2025 1:21 PM EDT [facility] Blood Venipuncture / Unknown 04/05/2025 12:15 PM EDT 04/05/2025 1:04 PM EDT Una Perla PharmD LAB BLOOD ORDERABLES Final R esult [facility]
[address] [place] [address], * (ABNORMAL) aPTT (04/05/2025 3:54 AM EDT) PTT 35.3(L) 60.0 - 90.0 seconds 04/05/2025 4:31 AM EDT [facility] Blood Venipuncture / Unknown 04/05/2025 3:54 AM EDT 04/05/2025 4:15 AM EDT Narrative [facility] - 04/05/2025 4:31 AM EDT PTT = The equivalent PTT values for the therapeutic range of heparin levels at 0.3 to 0.5 U/ml are 60 to 70 seconds. Una Perla PharmD LAB BLOOD ORDERABLES Final R esult [facility]
[address] [place] [address], * Heparin Anti-Xa (04/05/2025 3:54 AM EDT) Pathologist [facility] Heparin Anti-Xa (UFH) 0.30 0.30 - 0.70 IU/ml 04/05/2025 4:32 AM EDT [facility] Blood Venipuncture / Unknown 04/05/2025 3:54 AM EDT 04/05/2025 4:15 AM EDT Una GroupjumpD LAB BLOOD ORDERABLES Final R esult Performing Organization Address City/[facility]/ZIP Co de Phone Number [facility]
[address] [place] [address], * (ABNORMAL) CBC Auto Differential (04/05/2025 3:54 AM EDT) Pathologist [facility] WBC 11.18(H) 3.40 - 10.80 10*3/mm3 04/05/2025 4:20 AM EDT [facility] RBC 5.00 4.14 - 5.80 10*6/mm3 04/05/2025 4:20 AM EDT [facility] Hemoglobin 13.9 13.0 - 17.7 g/dL 04/05/2025 4:20 AM EDT [facility] Hematocrit 42.4 37.5 - 51.0 % 04/05/2025 4:20 AM EDT [facility] MCV 84.8 79.0 - 97.0 fL 04/05/2025 4:20 AM EDT [facility] MCH 27.8 26.6 - 33.0 pg 04/05/2025 4:20 AM EDT [facility] [...] 42.7 - 76.0 % 04/05/2025 4:20 AM [facility] Lymphocyte % 14.0(L) 19.6 - 45.3 % 04/05/2025 4:20 AM [facility] Monocyte % 11.0 5.0 - 12.0 % 04/05/2025 4:20 AM [facility] Eosinophil % 0.8 0.3 - 6.2 % 04/05/2025 4:20 AM [facility] Basophil % 0.3 0.0 - 1.5 % 04/05/2025 4:20 AM [facility] Immature Grans % 0.4 0.0 - 0.5 % 04/05/2025 4:20 AM [facility] Neutrophils, Absolute 8.23(H) 1.70 - 7.00 10*3/mm3 04/05/2025 4:20 AM [facility] Lymphocytes, Absolute 1.56 0.70 - 3.10 10*3/mm3 04/05/2025 4:20 AM [facility] Monocytes, Absolute 1.23(H) 0.10 - 0.90 10*3/mm3 04/05/2025 4:20 AM [facility] Eosinophils, Absolute 0.09 0.00 - 0.40 10*3/mm3 04/05/2025 4:20 AM [facility] Basophils, Absolute 0.03 0.00 - 0.20 10*3/mm3 04/05/2025 4:20 AM EDT [facility] Immature Grans, Absolute 0.04 0.00 - 0.05 10*3/mm3 04/05/2025 4:20 AM EDT [facility] nRBC 0.0 0.0 - 0.2 /100 WBC 04/05/2025 4:20 AM EDT [facility] Blood Venipuncture / Unknown 04/05/2025 3:54 AM EDT 04/05/2025 4:16 AM EDT Una Perla PharmD LAB BLOOD ORDERABLES Final R esult [facility]
[address] [place] [address], * (ABNORMAL) Basic Metabolic Panel (04/05/2025 3:54 AM EDT) Glucose 152(H) 65 - 99 mg/dL 04/05/2025 4:40 AM EDT [facility] BUN 17.3 6.0 - 20.0 mg/dL 04/05/2025 4:40 AM EDT [facility] Creatinine 0.92 0.76 - 1.27 mg/dL 04/05/2025 4:40 AM EDT [facility] Sodium 136 136 - 145 mmol/L 04/05/2025 4:40 AM EDT [facility] Potassium 3.9 3.5 - 5.2 mmol/L 04/05/2025 4:40 AM EDT [facility] Chloride 103 98 - 107 mmol/L 04/05/2025 4:40 AM EDT [facility] CO2 24.0 22.0 - 29.0 mmol/L 04/05/2025 4:40 AM EDT [facility] Calcium 7.8(L) 8.6 - 10.5 mg/dL 04/05/2025 4:40 AM EDT [facility] BUN/Creatinine Ratio 18.8 7.0 - 25.0 04/05/2025 4:40 AM EDT [facility] Anion Gap 9.0 5.0 - 15.0 mmol/L 04/05/2025 4:40 AM EDT [facility] eGFR 105.2 >60.0 mL/min/1.7 3 04/05/2025 4:40 AM EDT [facility] Blood Venipuncture / Unknown 04/05/2025 3:54 AM EDT 04/05/2025 4:15 AM EDT [facility] - 04/05/2025 4:40 AM EDT [...] MD LAB BLOOD ORDERABLES Final Re sult [facility]
[address] [place] [address], * (ABNORMAL) aPTT (04/05/2025 12:18 AM EDT) PTT 33.6(L) 60.0 - 90.0 seconds 04/05/2025 12:53 AM EDT [facility] Blood Venipuncture / Unknown 04/05/2025 12:18 AM EDT 04/05/2025 12:37 AM EDT [facility] - 04/05/2025 12:53 AM EDT PTT = The equivalent PTT values for the therapeutic range of heparin levels at 0.3 to 0.5 U/ml are 60 to 70 seconds. Carmine PharmD LAB BLOOD ORDERABLES Final R esult Performing Organization Address City/[facility]/ZIP Co de Phone Number [facility]
[address] [place] [address], * (ABNORMAL) Protime-INR (04/05/2025 12:18 AM EDT) Protime 15.9(H) 12.2 - 15.3 Seconds 04/05/2025 12:53 AM EDT [facility] INR 1.19(H) 0.89 - 1.12 04/05/2025 12:53 AM EDT [facility] Blood Venipuncture / Unknown 04/05/2025 12:18 AM EDT 04/05/2025 12:37 AM EDT Carmine PharmD LAB BLOOD ORDERABLES Final R esult Performing Organization Address [facility] Co de Phone Number [facility]
[address] [place] [address], * Heparin Anti-Xa (04/05/2025 12:18 AM EDT) Pathologist [facility] Heparin Anti-Xa (UFH) 0.39 0.30 - 0.70 IU/ml 04/05/2025 12:54 AM EDT [facility] Blood Venipuncture / Unknown 04/05/2025 12:18 AM EDT 04/05/2025 12:37 AM EDT Carmine PharmD LAB BLOOD ORDERABLES Final R esult Performing Organization Address City/[facility]/ZIP Co de Phone Number [facility]
[address] [place] [address], * MRI Tibia Fibula Right With & [...] MD 04/04/2025 11:00 PM EDT Workstation ID: [id number] Narrative 04/04/2025 11:00 PM EDT MRI TIBIA [...] MD 04/04/2025 11:00 PM EDT Workstation ID: [id number] Leonora Shepherd MD IMG MRI ORDERABLES Final Resu lt * POC Creatinine (04/04/2025 2:49 PM EDT) Creatinine 1.10 0.60 - 1.30 mg/dL 04/07/2025 7:14 PM EDT [facility] Comment:Serial Number: [id number] 7Operator: [id number] Venous Blood 04/04/2025 2:49 PM EDT 04/07/2025 7:14 PM EDT Jason Álvarez DO POINT OF CARE TEST ORDERABLES Fi nal Result [facility]
[address] [place] [address], * (ABNORMAL) CBC Auto Differential (04/04/2025 2:47 PM EDT) [facility] WBC 12.72(H) 3.40 - 10.80 10*3/mm3 04/04/2025 2:56 PM EDT [facility] RBC 5.64 4.14 - 5.80 10*6/mm3 04/04/2025 2:56 PM EDT [facility] Hemoglobin 15.3 13.0 - 17.7 g/dL 04/04/2025 2:56 PM EDT [facility] Hematocrit 47.9 37.5 - 51.0 % 04/04/2025 2:56 PM EDT [facility] MCV 84.9 79.0 - 97.0 fL 04/04/2025 2:56 PM EDT [facility] MCH 27.1 26.6 - 33.0 pg 04/04/2025 2:56 PM EDT [facility] MCHC 31.9 31.5 - 35.7 g/dL 04/04/2025 2:56 PM EDT [facility] RDW 13.1 12.3 - 15.4 % 04/04/2025 2:56 PM EDT [facility] RDW-SD 40.3 37.0 - 54.0 fl 04/04/2025 2:56 PM EDT [facility] MPV 9.4 6.0 - 12.0 fL 04/04/2025 2:56 PM EDT [facility] Platelets 232 140 - 450 10*3/mm3 04/04/2025 2:56 PM EDT [facility] Neutrophil % 74.9 42.7 - 76.0 % 04/04/2025 2:56 PM EDT [facility] Lymphocyte % 13.1(L) 19.6 - 45.3 % 04/04/2025 2:56 PM EDT [facility] Monocyte % 11.2 5.0 - 12.0 % 04/04/2025 2:56 PM EDT [facility] Eosinophil % 0.4 0.3 - 6.2 % 04/04/2025 2:56 PM EDT [facility] Basophil % 0.2 0.0 - 1.5 % 04/04/2025 2:56 PM EDT [facility] Immature Grans % 0.2 0.0 - 0.5 % 04/04/2025 2:56 PM EDT [facility] Neutrophils, Absolute 9.52(H) 1.70 - 7.00 10*3/mm3 04/04/2025 2:56 PM EDT [facility] Lymphocytes, Absolute 1.66 0.70 - 3.10 10*3/mm3 04/04/2025 2:56 PM EDT [facility] Monocytes, Absolute 1.43(H) 0.10 - 0.90 10*3/mm3 04/04/2025 2:56 PM EDT [facility] Eosinophils, Absolute 0.05 0.00 - 0.40 10*3/mm3 04/04/2025 2:56 PM EDT [facility] Basophils, Absolute 0.03 0.00 - 0.20 10*3/mm3 04/04/2025 2:56 PM EDT [facility] Immature Grans, Absolute 0.03 0.00 - 0.05 10*3/mm3 04/04/2025 2:56 PM EDT [facility] nRBC 0.0 0.0 - 0.2 /100 WBC 04/04/2025 2:56 PM EDT [facility] Blood Venipuncture / Unknown 04/04/2025 2:47 PM EDT 04/04/2025 2:52 PM EDT us Mario Crowley DO LAB BLOOD ORDERABLES Fin al Result [facility]
[address] [place] [address], * (ABNORMAL) C-reactive Protein (04/04/2025 2:47 PM EDT) C-Reactive Protein 8.57(H) 0.00 - 0.50 mg/dL 04/04/2025 3:26 PM EDT [facility] Blood Venipuncture / Unknown 04/04/2025 2:47 PM EDT 04/04/2025 2:52 PM EDT [facility] Fin al Result Performing Organization Address City/[facility]/ZIP Co de Phone Number [facility]
[address] [place] [address], * (ABNORMAL) Sedimentation Rate (04/04/2025 2:47 PM EDT) Pathologist [facility] Sed Rate 51(H) 0 - 15 mm/hr 04/04/2025 3:06 PM EDT [facility] Blood Venipuncture / Unknown 04/04/2025 2:47 PM EDT 04/04/2025 2:52 PM EDT [facility] BLOOD ORDERABLES Fin al Result Performing Organization Address City/[facility] Co de Phone Number [facility]
[address] [place] [address], * Comprehensive Metabolic Panel (04/04/2025 2:47 PM EDT) Pathologist [facility] Glucose 90 65 - 99 mg/dL 04/04/2025 3:26 PM EDT [facility] BUN 18.3 6.0 - 20.0 mg/dL 04/04/2025 3:26 PM EDT [facility] Creatinine 0.94 0.76 - 1.27 mg/dL 04/04/2025 3:26 PM EDT [facility] Sodium 136 136 - 145 mmol/L 04/04/2025 3:26 PM EDT [facility] Potassium 3.8 3.5 - 5.2 mmol/L 04/04/2025 3:26 PM EDT [facility] Chloride 100 98 - 107 mmol/L 04/04/2025 3:26 PM EDT [facility] CO2 25.3 22.0 - 29.0 mmol/L 04/04/2025 3:26 PM EDT [facility] Calcium 8.6 8.6 - 10.5 mg/dL 04/04/2025 3:26 PM T [facility] Total Protein 7.3 6.0 - 8.5 g/dL 04/04/2025 3:26 PM EDT [facility] Albumin 4.1 3.5 - 5.2 g/dL 04/04/2025 3:26 PM T [facility] ALT (SGPT) 26 1 - 41 U/L 04/04/2025 3:26 PM [facility] AST (SGOT) 25 1 - 40 U/L 04/04/2025 3:26 PM T [facility] Alkaline Phosphatase 106 39 - 117 U/L 04/04/2025 3:26 PM T [facility] Total Bilirubin 1.0 0.0 - 1.2 mg/dL 04/04/2025 3:26 PM T [facility] Globulin 3.2 gm/dL 04/04/2025 3:26 PM [facility] Comment:Calculated Result A/G Ratio 1.3 g/dL 04/04/2025 3:26 PM [facility] BUN/Creatinine Ratio 19.5 7.0 - 25.0 04/04/2025 3:26 PM [facility] Anion Gap 10.7 5.0 - 15.0 mmol/L 04/04/2025 3:26 PM [facility] eGFR 102.5 >60.0 mL/min/1.7 3 04/04/2025 3:26 PM [facility] Blood Venipuncture / Unknown 04/04/2025 2:47 PM EDT 04/04/2025 2:52 PM EDT [facility] [place] - 04/04/2025 3:26 PM [...] ORDERABLES Fin al Result [facility]
[address] [place] [address], documented in this encounter Visit Diagnoses Diagnosis [...] Order & Select [facility] Electrolyte Replacement Protocol Algorithm to View Details [...] Order & Select [facility] Electrolyte Replacement Protocol Algorithm to View Details [...] Salazar, KELL)1943 (Given - Provider: Anahy Marcelino, [employer])2129 (Canceled Entry - Provider: Anahy Marcelino [employer] - Comment: previously given) 0837 (Given - [...] Hart, RN) 1002 (New Bag - Provider: aMrguerite [place], RN) ethyl alcohol 62 % 2 [...] Continuous Medication Order 04/09/2025 04/10/2025 04/11/2025 heparin 24886 units/250 mL (100 units/mL) in 0.45 % [...] Shirley Hart, RN)1220 (Given - Provider: Shirley aHrt, RN)1438 (Given [...] Order & Select [facility] Electrolyte Replacement Protocol Algorithm to View Details [...] documented as of this encounter Care Teams 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
--- OUTSIDE RECORDS SUMMARY | 2025-04-07 20:36 | XMS_ITS | Encounter Summary ---
Author Organization [facility] Address [address] [place] [address] Care Team Providers Care Internet Architect Name Role Phone Provider, No Known Primary Care Provider Unavail able Reason for Visit * Auth/Cert Specialty Diagnoses / Procedures Referred By Bulmaro muniz Referred To Contact Diagnoses Right BKA infection Referral ID Status Reason Start Date Expiration Date Visits Re quested Visits Authorized [id number] 1 1 Encounter Details Date Type Department Care Team (Late st Contact Info) Description 04/07/2025 8:36 PM EDT Anesthesia Event [facility] OR [address] [place] [address] Luci Alonso DO [address] [place] [address] Anesthesia Record Procedure Summary Procedure Name Responsible [...] drink = 0.6 oz pur e alcohol) [facility] Utilities Answer Date Recorded In the past 12 months has [employer], gas, oil, or water [employer] threatened to shut off services in your [...] or training? Not on file Preferred Language Trinidadian 04/07/2025 Sex and Gender Information Value Date [...] PACU on O2NC, breathing comfortably. Report to WAITER/WAITRESS TAVERN at bedside. VSS. * Anesthesia Procedure Notes [...] Adjuncts used in placement: cricoid pressure Blade: Macros Blade size: x blade. ETT size (mm): [...] Musculoskeletal Abdominal Substance History - negative use WELDING INSPECTOR Other ROS/Med Hx Other: Eliquis 04/04/25 Hgb 14.7 k 43.2 Factor 2 on eliquis +gerd Anesthesia Plan ASA 3 - emergent general Rapid sequence (Risks and benefits of general anesthesia discussed with patient (including [place], CVA, , recall,aspiration, oropharyngeal/dental damage), questions answered, agreeable to proceed. ) intravenous induction Anesthetic plan, risks, benefits, and alternatives have been provided, discussed and informed consent has been obtained with: patient. Plan discussed with P 3 ARMAMENT/ORDNANCE IMA TECHNICIAN. CODE STATUS: Code Status (Patient has [...] documented as of this encounter Care Teams Internet Architect Relationship Specialty Start Date End Date Provider, No Known [facility] [place] [place] [address] PCP - General 05/09/23 documented as of this encounter
--- OUTSIDE RECORDS SUMMARY | 2025-04-08 14:45 | XMS_ITS | Encounter Summary ---
Author Organization [facility] Address [address] [place] [address] Care Team Providers Care Diesel Retrofit Designer Name Role Phone Provider, No Known Primary Care Provider Unavail able Reason for Visit * Reason Comments Leg Swelling * Auth/Cert Specialty Diagnoses / Procedures Referred By Contac t Referred To Contact Diagnoses Right BKA infection Referral ID Status Reason Start Date Expiration Date Visits Re quested Visits Authorized [id number] 1 1 Encounter Details Date Type Department Care Team (Late st Contact Info) Description 04/08/2025 2:45 PM EDT - 04/08/2025 4:04 PM EDT Surgery [facility] OR [address] [place] [address] Sushil Dean Jr., MD [address] [place] [address] [address] [id number] LEG DEBRIDEMENT AND IRRIGATION Social History Tobacco Use Types Packs/Day Years Used Date Smoking Tobacco: Never Smokeless Tobacco: Never Tobacco Cessation:Counseling Given: Not Answered Alcohol Use Standard Drinks/Week Comments Not Currently 0 (1 standard drink = 0.6 oz pur e alcohol) [facility] Utilities Answer Date Recorded In the past 12 months has [employer] electric, gas, oil, or water company threatened [...] Not on file Preferred Language Citizen Of [place] 04/07/2025 Sex and Gender Information Value Date [...] 2:25 PM EDT Cherri Grimm RN * [place] Suicide Severity Rating Scale (Screener/Recent Self-Report) Question [...] from the original note were not included. [facility] Medicine Services DISCHARGE SUMMARY Patient Name: [...] Date/Time Wound Culture - Swab, Leg, Right [[id number]] (Abnormal) (Susceptibility) Collected: 04/07/252106 Lab Status: Final [...] Units Date/Time FL C Arm During Surgery [[id number]] Resulted: 04/07/252137 Updated: 04/07/252137 Narrative: This procedure was auto-finalized with no dictation required. MRI Tibia Fibula Right With & Without Contrast [[id number]] Collected: 04/07/25 0938 Updated: 04/07/25 1001 Narrative: [...] Buenrostro 04/07/2025 9:58 AM EDT Workstation ID: [id number] MRI Tibia Fibula Right With & Without Contrast [[id number]] Collected: 04/04/252256 Updated: 04/04/252302 Narrative: MRI TIBIA [...] MD 04/04/2025 11:00 PM EDT Workstation ID: [id number] Pending Labs Order Current Status Fungus Culture [...] Male) Date of 1980 Social Security Number [id number] [place] [address] [place] [address] Gnosticism Unknown Marital Status Unknown Admission Date 04/04/2025 Admission Type Emergency Admitting Provider Jadyn Richardson DO Attending Provider Jadyn Richardson DO Department, Room/Bed [facility] 5G, S565/1 Discharge Date Discharge Disposition [...] Group [place] [id number] Payor Plan Address Payor Plan Phone Number Payor Plan Fax Number Effective Dates [employer] [address] [address] 08/10/2023 - None Entered [facility] [address] Subscriber Name Subscriber Date Member ID WON DENNIS 1980 [id number] Emergency Contacts Correctional Corporal (Rel.) Home Phone Work Phone Mobile Phone Avril Dennis (Spouse) -- -- [phone] Robert Hackett (Relative) -- -- [phone] [facility] 5G [address] [facility] [address] Patient: ROOM: [facility] Won Dennis [address] [place] [address] : 1980 SSN: [id number] Sex: M PCP: Provider, No Known Emergency Contact Information Name Relation Home Work Mobile Avril Dennis Spouse [phone] Other Contacts Name Relation Home Work Mobile Robert Hackett Relative [phone] INSURANCE PAYOR PLAN [employer] # SUBSCRIBER ID Primary: Secondary: MEDICARE [employer]ICA[place] [id number] Admitting Diagnosis: Right BKA infection [T87.43] Order Date: Apr 09, 2025 Case Management Hearing Care Practitioner Consult (Order ID: [id number]) Diagnosis: Priority: Routine Expected Date: Expiration Date: [...] INFECTIOUS DISEASE Progress Note Won Dennis 1980 [id number] Date of Consult: 04/10/2025 Admission Date: 04/04/2025 [...] Jr., MD, 20 mg at 04/09/25906 heparin 85200 units/250 mL (100 units/mL) in 0.45 % [...] NS IVPB ([facility]) Ordering Provider: Mario Crowley, DO 20 mg/kg [...] Units Date/Time FL C Arm During Surgery [[id number]] Resulted: 04/07/252137 Updated: 04/07/252137 Narrative: This procedure was auto-finalized with no dictation required. MRI Tibia Fibula Right With & Without Contrast [[id number]] Collected: 04/07/2538 Updated: 04/07/25 1001 Narrative: MRI [...] Buenrostro 04/07/2025 9:58 AM EDT Workstation ID: [id number] Impression: Recurrent Right BKA stump abscess/cellulitis- this [...] 04/10/251323 Creation Time: 04/10/251323 Signed Expand [facility] Medicine Services PROGRESS NOTE Patient Name: [...] Date/Time Wound Culture - Swab, Leg, Right [[id number]] (Abnormal) (Susceptibility) Collected: 04/07/252106 Lab Status: Final [...] Row Name 04/06/25 1143 Sit-Stand Transfer Sit-Stand Warren (Transfers) modified independence - Comment, (Sit-Stand Transfer) Pt stood from recliner. Not holding onto walker, pt able to pull his pants up while balancing on his one leg. -LM Row Name 04/06/25 1143 Gait/Stairs (Locomotion) Warren Level (Gait) modified independence - Distance in [...] Motion bilateral lower extremity ROM WFL -LM [facility] Name 04/06/25 1145 Strength Comprehensive (MMT) General Manual Muscle Testing (MMT) Assessment no strength deficits identified BLEs -LM [facility] Name 04/06/25 1145 Balance Balance [...] home at d/c. PT signing off. -LM [facility] Name 04/06/25 1146 Therapy Assessment/Plan (PT) Criteria for Skilled Interventions Met (PT) no;no problems identified which require skilled intervention -LM Therapy Frequency (PT) evaluation only -LM Predicted Duration of Therapy Intervention (PT) Eval Only -LM [facility] Name 04/06/25 1146 Vital Signs Pretreatment Heart Rate (beats/min) 86 -LM Posttreatment Heart Rate (beats/min) 96 -LM Pre SpO2 (%) 95 -LM O2 Delivery Pre Treatment room air -LM Post SpO2 (%) 96 -LM O2 Delivery Post Treatment room air -LM Pre Patient Position Sitting -LM Post Patient Position Sitting -LM [facility] Name 04/06/25 1146 Positioning and [...] Nurse Physical Therapy Education Title: PT OT SALES AND CATERING COORDINATOR Therapies (Done) Topic: Physical Therapy (Done) Point: Mobility training (Done) Learning Progress Summary Patient Acceptance, E, VU,DU by at 04/06/2025 1147 Point: Precautions (Done) Learning Progress Summary Patient Acceptance, E, VU,DU by at 04/06/2025 1147 User Cabrera Initials Effective Dates Name Provider Type [facility] 01/24/25 - Susan Cavazos, PT Physical [...] Description Service Date Service Provider Modifiers Qty [phone] PT EVAL LOW COMPLEXITY 3 04/06/2025 Susan [...] mg Daily 04/05/2025 -- Route: Oral heparin 98430 units/250 mL (100 units/mL) in 0.45 % [...] 22 [facility] [address], [address] [facility], [address] Please schedule at [phone] VONDA Garcia 04/11/25 08:32 EDT Cosigned by Sushil Dean Jr., MD at 04/19/2025 10:33 AM EDT Associated attestation - Sushil Dean Jr., MD - 04/19/2025 10:33 AM EDT I have reviewed this documentation and agree. * Rosario Hill APRN - 04/10/2025 1:24 PM EDT Images from the original note were not included. [facility] Medicine Services PROGRESS NOTE Patient Name: [...] Date/Time Wound Culture - Swab, Leg, Right [[id number]] (Abnormal) (Susceptibility) Collected: 04/07/252106 Lab Status: Final [...] mg Daily 04/05/2025 -- Route: Oral heparin 28554 units/250 mL (100 units/mL) in 0.45 % [...] 22 [facility] [address] [facility], [address] [facility], [address] Please schedule at [phone] VONDA Garcia 04/10/25 09:01 EDT Cosigned by Sushil Dean Jr., MD at 04/19/2025 10:33 AM EDT Associated attestation - Sushil Dean Jr., MD - 04/19/2025 10:33 AM EDT I have reviewed this documentation and agree. * Carlton Mead MD - 04/10/2025 7:38 AM EDT Images from the original note were not included. INFECTIOUS DISEASE Progress Note Won Dennis 1980 [id number] Date of Consult: 04/10/2025 Admission Date: 04/04/2025 [...] IRRIGATION; Surgeon: Sushil Dean Jr., MD; Location: [facility]; Service: Orthopedics; Laterality: Right; PLACEMENT OF WOUND VAC Right 04/07/2025 Procedure: WOUND VACUUM ASSISTED CLOSURE; Surgeon: Sushil Dean Jr., MD; Location: [facility] OR; Service: Orthopedics; Laterality: Right; WOUND CLOSURE [...] Jr., MD, 20 mg at 04/09/25906 heparin 06281 units/250 mL (100 units/mL) in 0.45 % [...] Units Date/Time FL C Arm During Surgery [[id number]] Resulted: 04/07/252137 Updated: 04/07/252137 Narrative: This procedure was auto-finalized with no dictation required. MRI Tibia Fibula Right With & Without Contrast [[id number]] Collected: 04/07/25937 Updated: 04/07/25 100 Narrative: MRI [...] Buenrostro 04/07/2025 9:58 AM EDT Workstation ID: [id number] Impression: Recurrent Right BKA stump abscess/cellulitis- this [...] MD 04/10/2025 07:38 EDT * Larisa Hamilton [facility] - 04/10/2025 7:17 AM [...] from the original note were not included. [facility] Medicine Services PROGRESS NOTE Patient Name: [...] Date/Time Wound Culture - Swab, Leg, Right [[id number]] (Abnormal) Collected: 04/07/252106 Lab Status: Preliminary result [...] Jason Álvarez DO 04/09/25 * Larisa Hamilton [facility] - 04/09/2025 11:36 AM [...] & Select [facility] Electrolyte Replacement Protocol Algorithm to View Details [...] mg Daily 04/05/2025 -- Route: Oral heparin 58748 units/250 mL (100 units/mL) in 0.45 % [...] & Select [facility] Electrolyte Replacement Protocol Algorithm to View Details [...] radiographs [facility] [address] [address], [address] [facility], [address] Please schedule at [phone] VONDA Garcia 04/09/25 09:18 EDT Cosigned by Sushil Dean Jr., MD at 04/19/2025 10:33 AM EDT Associated attestation - Sushil Dean Jr., MD - 04/19/2025 10:33 AM EDT I have reviewed this documentation and agree. * Carlton Mead MD - 04/09/2025 8:25 AM EDT Images from the original note were not included. INFECTIOUS DISEASE Progress Note Won Dennis 1980 [id number] Date of Consult: 04/09/2025 Admission Date: 04/04/2025 [...] MD, 20 mg at 04/08/25 0800 heparin 36664 units/250 mL (100 units/mL) in 0.45 % [...] % 50 mL IVPB Ordering Provider: Sushil Daen Jr., MD 8 mg/kg ?? 98.8 kg [...] Units Date/Time FL C Arm During Surgery [[id number]] Resulted: 04/07/252137 Updated: 04/07/252137 Narrative: This procedure was auto-finalized with no dictation required. MRI Tibia Fibula Right With & Without Contrast [[id number]] Collected: 04/07/25 0938 Updated: 04/07/25 1001 Narrative: [...] Chitra 04/07/2025 9:58 AM EDT Workstation ID: [id number] Impression: Recurrent Right BKA stump abscess/cellulitis- this [...] from the original note were not included. [facility] Medicine Services PROGRESS NOTE Patient Name: [...] Buenrostro 04/07/2025 9:58 AM EDT Workstation ID: [id number] I have personally reviewed the therapy plans: [...] Jason Álvarez, DO 04/08/25 * Hamilton, Larisa, [facility] - 04/08/2025 11:48 AM [...] & Select [facility] Electrolyte Replacement Protocol Algorithm to View Details [...] mg Daily 04/05/2025 -- Route: Oral heparin 91396 units/250 mL (100 units/mL) in 0.45 % [...] INFECTIOUS DISEASE Progress Note Won Dennis 1980 [id number] Date of Consult: 04/08/2025 Admission Date: 04/04/2025 [...] Oral, Q6H PRN, 500 mg at 04/06/25 2964 OR acetaminophen (TYLENOL) 160 MG/5ML oral solution [...] Jr., MD, 20 mg at 04/07/25950 heparin 36871 units/250 mL (100 units/mL) in 0.45 % [...] NS IVPB ([facility]) Ordering Provider: Mario Crowley, DO 20 mg/kg [...] Units Date/Time FL C Arm During Surgery [[id number]] Resulted: 04/07/252137 Updated: 04/07/252137 Narrative: This procedure was auto-finalized with no dictation required. MRI Tibia Fibula Right With & Without Contrast [[id number]] Collected: 04/07/25 0938 Updated: 04/07/25 1001 Narrative: [...] Buenrostro 04/07/2025 9:58 AM EDT Workstation ID: [id number] Impression: Right BKA stump cellulitis- s/p BKA with multiple surgical interventions with Known MRSA 05/09/2025. (Treated by ID in [place] Dr. Harris). Dr. Torres treated him with [...] from the original note were not included. [facility] Medicine Services PROGRESS NOTE Patient Name: [...] Buenrostro 04/07/2025 9:58 AM EDT Workstation ID: [id number] I have personally reviewed the therapy plans: [...] Jason DO Preeti 04/07/25 * Larisa Hamilton, [facility] - 04/07/2025 11:56 AM [...] INFECTIOUS DISEASE Progress Note Won Dennis 1980 [id number] Date of Consult: 04/07/2025 Admission Date: 04/04/2025 [...] IVPB, 8 mg/kg (Adjusted), Intravenous, Q24H, Carlton Maed MD, Last Rate: 100 mL/hr at 04/06/25 1059, 800 mg at 04/06/25 1059 ferrous sulfate tablet 325 mg, 325 mg, Oral, BID, Leonora Shepherd MD, 325 mg at 04/06/252100 furosemide (LASIX) tablet 20 mg, 20 mg, Oral, Daily, Leonora Shepherd MD, 20 mg at 04/06/25 0900 heparin 31433 units/250 mL (100 units/mL) in 0.45 % NaCl infusion, 18 Units/kg/hr, Intravenous, Titrated, Cherri Beatty, [facility], Last Rate: 24.1 mL/hr [...] With & Without Contrast - In process [[id number]] Resulted: 04/07/25828 Updated: 04/07/25828 This result has not been signed. Information might be incomplete. 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 (Treated by ID in [place] Dr. Harris). Dr. Torres treated him with [...] & Select [facility] Electrolyte Replacement Protocol Algorithm to View Details [...] mg Daily 04/05/2025 -- Route: Oral heparin 36020 units/250 mL (100 units/mL) in 0.45 % [...] & Select [facility] Electrolyte Replacement Protocol Algorithm to View Details [...] MD 04/07/25 06:07 EDT * Cherri Beatty [facility] - 04/06/2025 1:47 PM [...] from the original note were not included. [facility] Medicine Services PROGRESS NOTE Patient Name: [...] MD 04/04/2025 11:00 PM EDT Workstation ID: [id number] I have personally reviewed the therapy plans: [...] mg Daily 04/05/2025 -- Route: Oral heparin 41531 units/250 mL (100 units/mL) in 0.45 % [...] & Select [facility] Electrolyte Replacement Protocol Algorithm to View Details [...] & Select [facility] Electrolyte Replacement Protocol Algorithm to View Details [...] INFECTIOUS DISEASE follow up. 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 (Treated by ID in [place] Dr. Harris). Dr. Torres treated him with [...] from the original note were not included. [facility] Medicine Services PROGRESS NOTE Patient Name: [...] MD 04/04/2025 11:00 PM EDT Workstation ID: [id number] I have personally reviewed the therapy plans: [...] from the original note were not included. [facility] Medicine Services HISTORY AND PHYSICAL Patient [...] MD 04/04/2025 11:00 PM EDT Workstation ID: [id number] Assessment & Plan Assessment & Plan Won [...] 4FR PICC placed by Rhoda Bonner RN [facility], tip verified by 3CG see LDA. * Sushil Dean Jr., MD - 04/05/2025 8:07 AM EDTAssociated Order(s): IP CONSULT TO ORTHOPEDIC SURGERY [facility], [facility] [address] [address] Orthopedic Consult Patient: Won Dennis Date of [...] was evaluated in the emergency department in [place], was discharged with instructions for follow-up. He [...] tablet by mouth Daily. 04/03/2025 Morning Lactobacillus-Inulin ([facility]estive [facility]) capsule Take 200 mg by [...] MD 04/04/2025 11:00 PM EDT Workstation ID: [id number] Assessment: Right BKA infection 44-year-old male with [...] DISEASE CONSULT/INITIAL HOSPITAL VISIT Won Dennis 1980 [id number] Date of Consult: 04/05/2025 Admission Date: 04/04/2025 [...] Leonora Shepherd MD, 40 mg at 04/04/25 3023 sennosides-docusate (PERICOLACE) 8.6-50 MG per tablet 2 [...] MD, 20 mg at 04/05/25 09 heparin 47058 units/250 mL (100 units/mL) in 0.45 % [...] Leonora Shepherd MD, 10 mg at 04/04/25 3246 Pharmacy to Dose Heparin, , Not Applicable, [...] Tibia Fibula Right With & Without Contrast [[id number]] Collected: 04/04/252256 Updated: 04/04/252302 Narrative: MRI TIBIA [...] MD 04/04/2025 11:00 PM EDT Workstation ID: [id number] Impression: Right BKA stump cellulitis- s/p BKA with multiple surgical interventions with Known MRSA 05/09/2025. (Treated by ID in [place] Dr. Harris). Dr. Torres treated him with [...] Jr., MD - 04/08/2025 3:51 PM EDT [facility] OPERATIVE REPORT PATIENT NAME: Won Dennis DATE OF : 1980 PREOP DIAGNOSIS: Right Right below-knee amputation infection POSTOP DIAGNOSIS: Same. PROCEDURE: Right Right 73779: Secondary closure below-knee amputation SURGEON: Sushil Dean MD OPERATIVE TEAM: Medical Research Assistant: Susi Grullon RN Scrub Person: Mary Paredes Scrub Person Extra: Hortencia Toribio Other: Katt Gotti RN; Charis Neville RN ANESTHETIST: Anesthesiologist: Ulises Hoffman MD GAUGE INSPECTOR: Stan Casillas CRNA Student Nurse Paperhanger: Karol Albert SRNA ANESTHESIA: Choice ESTIMATED BLOOD [...] CULTURE (Canceled) Sushil Dean Jr., MD 04/08/25 3352 Description: RIGHT LEG DEEP WOUND FOR CULTURE [...] PM EDT [facility], [place] [address] OPERATIVE REPORT PATIENT NAME: Won Dennis DATE OF : 1980 PREOP DIAGNOSIS: Right Right below knee amputation stump infection POSTOP DIAGNOSIS: Same. PROCEDURE: Right Right 38205: Incision and drainage of surgical site infection 78025: Debridement of skin, subcutaneous tissue, muscle 42717: Wound vacuum-assisted closure SURGEON: Sushil Dean MD OPERATIVE TEAM: Medical Research Assistant: Anum Sanchez RN Scrub Person: Hortencia Toribio; Gerald Ivey BLEACHING 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: Anesthesiologist: Luci Alonso DO ANESTHESIA: [...] this chart in the absence of a blood bank laboratory technologist. No orders to display RADIOLOGY: [x] Radiologist's [...] is discharging home with outpatient infusion at [facility]. He has an appointment with [facility] at 8:00 am tomorrow. They [...] with KELLEE and given themhis Medicare number [id number], she sent it to Admission. DEBRA spoke with Kerri, with [facility], and explained that he had Medicare A and B. However, it will not cover home infusion. It will be $64.00 a day out of packet. Patients can go to the Infusion center at [facility], and it will cover the cost as an outpatient. He will need to go there every day for infusion. They will be able to do the patients' PICC line dressing changes and lab work. DEBRA called [facility] Outpatient infusion center they can accept patient and start him. He is known for their facility. The Facility will need to run it through his insurance first. CM faxed the orders over to [facility] at [phone]. CM will follow up with them tomorrow at [facility] to make sure they received [...] 04/09/2025 2:51 PM EDT Continued Stay Note [facility] Patient Name: Won Dennis Today's Date: 04/09/2025 Admit Date: 04/04/2025 Plan: Home Discharge Plan Row Name 04/09/25 1311 Plan Plan Home Patient/Family in Agreement with Plan yes Plan Comments CM spoke with patient at bedside today. Wheelchair from [employer] is at bedside. Patient getting PICC line [...] RN * Case Management/Social Work - Omar aZvala RN - 04/07/2025 11:49 AM EDT Images from the original note were not included. Discharge Planning Assessment [facility] Patient Name: Won Dennis Today's [...] family Patient/Family Anticipated Services at Transition director casecorrectional case manager Anticipated family or friend will provide Discharge Needs Assessment Equipment Currently Used at Home glucometer;shower chair;pulse ox;bp cuff;prosthesis;crutches Equipment Needed After Discharge none Discharge Plan Row Name 04/07/25 1144 Plan Plan Home Patient/Family in Agreement with Plan yes Plan Comments CM spoke with patient at bedside today. Patient lives with and his 5 kids in [place]. 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 He has walker, cane, shower chair, and crutches. He requested a wheelchair for home. CM will order wheelchair through [facility]. He is not current with home [...] Arrived From hospital Preferred Language Citizen Of [place] Functional Status Row Name 04/07/25 1143 Functional [...] 3:4 0 PM EDT Right BKA infection MD SEC ABDOMINAL WALL SUTURE EVISCERATION/DEHSN 04/08/2025 3:20 [...] 1.5 % [facility] Immature Grans % 0.4 0.0 - 0.5 % 04/11/2025 4:02 AM EDT [facility] Neutrophils, Absolute 4.69 1.70 - 7.00 10*3/mm3 04/11/2025 4:02 AM EDT [facility] Lymphocytes, Absolute 2.07 0.70 - 3.10 10*3/mm3 04/11/2025 4:02 AM EDT [facility] Monocytes, Absolute 0.73 0.10 - 0.90 10*3/mm3 04/11/2025 4:02 AM EDT [facility] Eosinophils, Absolute 0.32 0.00 - 0.40 10*3/mm3 04/11/2025 4:02 AM EDT [facility] Basophils, Absolute 0.03 0.00 - 0.20 10*3/mm3 04/11/2025 4:02 AM EDT [facility] Immature Grans, Absolute 0.03 0.00 - 0.05 10*3/mm3 04/11/2025 4:02 AM EDT [facility] nRBC 0.0 0.0 - 0.2 /100 WBC 04/11/2025 4:02 AM EDT [facility] Blood Venipuncture / Unknown 04/11/2025 3:40 AM EDT 04/11/2025 3:59 AM EDT us Sushil Dean Jr., MD LAB BLOOD ORDERABLES Fi nal Result [facility]
[address] [place] [address], * (ABNORMAL) Comprehensive Metabolic Panel (04/11/2025 3:40 [...] ORDERABLES Final Result [facility]
[address] [place] [address], * (ABNORMAL) CBC Auto Differential (04/10/2025 3:46 AM EDT) WBC 9.60 3.40 - 10.80 10*3/mm3 04/10/2025 3:56 AM EDT [facility] RBC 4.67 4.14 - 5.80 10*6/mm3 04/10/2025 3:56 AM EDT [facility] Hemoglobin 12.9(L) 13.0 - 17.7 g/dL 04/10/2025 3:56 AM EDT [facility] Hematocrit 40.1 37.5 - 51.0 % 04/10/2025 3:56 AM EDT [facility] MCV 85.9 79.0 - 97.0 fL 04/10/2025 3:56 AM EDT [facility] MCH 27.6 26.6 - 33.0 pg 04/10/2025 3:[facility] MCHC 32.2 31.5 - 35.7 g/dL 04/10/2025 3:56 AM EDT [facility] RDW 12.9 12.3 - 15.4 % 04/10/2025 3:56 AM [facility] RDW-SD 40.5 37.0 - 54.0 fl 04/10/2025 3:56 AM EDT [facility] MPV 9.5 6.0 - 12.0 fL 04/10/2025 3:56 AM EDT [facility] Platelets 227 140 - 450 10*3/mm3 04/10/2025 3:56 AM [facility] Neutrophil % 59.1 42.7 - 76.0 % 04/10/2025 3:56 AM [facility] Lymphocyte % 29.0 19.6 - 45.3 % 04/10[facility]25 [facility] Monocyte % 8.1 5.0 - 12.0 % 04/10/2025 3:56 AM [facility] Eosinophil % 3.2 0.3 - 6.2 % 04/10/2025 3:56 AM [facility] Basophil % 0.4 0.0 - 1.5 % 04/10/2025 3:56 AM [facility] Immature Grans % 0.2 0.0 - 0.5 % 04/10/2025 3:56 [facility] Neutrophils, Absolute 5.67 1.70 - 7.00 10*3/mm3 04/10/2025 3:56 [facility] Lymphocytes, Absolute 2.78 0.70 - 3.10 10*3/mm3 04/10/2025 3:56 [facility] Monocytes, Absolute 0.78 0.10 - 0.90 10*3/mm3 04/10/2025 3:56 [facility] Eosinophils, Absolute 0.31 0.00 - 0.40 [...] Final Resul t [facility]
[address] [place] [address], * (ABNORMAL) Basic Metabolic Panel (04/10/2025 3:46 AM EDT) Glucose 125(H) 65 - 99 mg/dL 04/10/2025 4:20 AM EDT [facility] BUN 15.9 6.0 - 20.0 mg/dL 04/10/2025 4:20 AM EDT [facility] Creatinine 0.77 0.76 - 1.27 mg/dL 04/10/2025 4:20 AM EDT [facility] Sodium 137 136 - 145 mmol/L 04/10/2025 4:20 AM EDT [facility] Potassium 3.9 3.5 - 5.2 mmol/L 04/10/2025 4:20 AM EDT [facility] Chloride 102 98 - 107 mmol/L 04/10/2025 4:20 AM EDT [facility] CO2 26.9 22.0 - 29.0 mmol/L 04/10/2025 4:20 AM EDT [facility] Calcium 7.9(L) 8.6 - 10.5 mg/dL 04/10/2025 4:20 AM EDT [facility] BUN/Creatinine Ratio 20.6 7.0 - 25.0 04/10/2025 4:20 AM EDT [facility] Anion Gap 8.1 5.0 - 15.0 mmol/L 04/10/2025 4:20 AM EDT [facility] eGFR 113.2 >60.0 mL/min/1.7 3 04/10/2025 4:20 AM EDT [facility] Blood Venipuncture / Unknown 04/10/2025 3:46 AM EDT 04/10/2025 3:52 AM EDT Narrative [facility] - 04/10/2025 4:20 AM EDT [...] Final Resul t [facility]
[address] [place] [address], * Heparin Anti-Xa (04/10/2025 3:46 AM EDT) Heparin Anti-Xa (UFH) 0.35 0.30 - 0.70 IU/ml 04/10/2025 4:23 AM EDT [facility] Blood Venipuncture / Unknown 04/10/2025 3:46 AM EDT 04/10/2025 3:53 AM EDT Larisa Hamilton [facility] LAB BLOOD ORDERABLES Final R esult [facility]
[address] [place] [address], * Heparin Anti-Xa (04/09/2025 10:05 AM EDT) Pathologist [facility] Heparin Anti-Xa (UFH) 0.36 0.30 - 0.70 IU/ml 04/09/2025 11:12 AM EDT [facility] Blood Venipuncture / Unknown 04/09/2025 10:05 AM EDT 04/09/2025 10:47 AM EDT Larisa Hamilton [facility] LAB BLOOD ORDERABLES Final R esult [facility]
[address] [place] [address], * (ABNORMAL) CBC Auto Differential (04/09/2025 4:18 AM EDT) Pathologist [facility] WBC 11.00(H) 3.40 - 10.80 10*3/mm3 04/09/2025 4:50 AM EDT [facility] RBC [...] - 33.0 pg 04/09/2025 4:50 AM EDT [facility] MCHC 32.2 31.5 - 35.7 g/dL 04/09/2025 4:50 AM EDT [facility] RDW [...] 0.40 10*3/mm3 04/09/2025 4:[facility] Basophils, Absolute 0.04 0.00 [...] ORDERABLES Fi nal Result Performing Organization Address City/[facility]/ZIP Co de Phone Number [facility]
[address] [place] [address], * Heparin Anti-Xa (04/09/2025 4:18 AM EDT) Heparin Anti-Xa (UFH) 0.41 0.30 - 0.70 IU/ml 04/09/2025 4:53 AM EDT [facility] Blood Venipuncture / Unknown 04/09/2025 4:18 AM EDT 04/09/2025 4:31 AM EDT Una LundbergD LAB BLOOD ORDERABLES Final R esult [facility]
[address] [place] [address], * (ABNORMAL) Basic Metabolic Panel (04/09/2025 4:18 [...] 4:18 AM EDT 04/09/2025 4:29 AM EDT [facility] - 04/09/2025 5:33 AM [...] nal Result [facility]
[address] [place] [address], * Wound Culture - Swab, Leg, Right [...] GENERAL ORDERABLES Final Result Performing Organization Address City/[facility]/ZIP Co de Phone Number [facility]
[address] [place] [address], [facility]
[address] [place] [address], * Anaerobic Culture - Swab, Leg, Right (04/08/2025 3:40 PM EDT) Anaerobic Culture No anaerobes isolated at 5 days ALIZA 04/13/2025 7:24 AM EDT [facility] Swab Structure of right lower limb / Unknown 04/08/2025 3:40 PM EDT 04/08/2025 8:05 PM EDT us Sushil Dean Jr., MD MICROBIOLOGY - GENERAL ORDERABLES Final Result Performing Organization Address City/[facility]/ZIP Co de Phone Number [facility]
[address] [place] [address], * Scan Slide (04/08/2025 8:41 AM EDT) [...] Final R esult [facility]
[address] [place] [address], * (ABNORMAL) CBC Auto Differential (04/08/2025 8:41 AM EDT) WBC 10.07 3.40 - 10.80 10*3/mm3 04/08/2025 11:02 AM EDT [facility] RBC 5.01 4.14 - 5.80 10*6/mm3 04/08/2025 11:02 AM EDT [facility] Hemoglobin 14.0 13.0 - 17.7 g/dL 04/08/2025 11:02 AM EDT [facility] Hematocrit 42.7 37.5 - 51.0 % 04/08/2025 11:02 AM EDT [facility] MCV 85.2 79.0 - 97.0 fL 04/08/2025 11:02 AM EDT [facility] MCH 27.9 26.6 - 33.0 pg 04/08/2025 11:02 AM EDT [facility] MCHC 32.8 31.5 - 35.7 g/dL 04/08/2025 11:02 AM EDT [facility] RDW 12.6 12.3 - 15.4 % 04/08/2025 11:02 AM EDT [facility] RDW-SD 38.9 37.0 - [...] R esult [facility]
[address] [place] [address], * (ABNORMAL) Basic Metabolic Panel (04/08/2025 8:41 [...] AM EDT 04/08/2025 9:09 AM EDT Narrative [facility] - 04/08/2025 9:51 AM EDT [...] ORDERABLES Fi nal Result Performing Organization Address City/[facility]/ZIP Co de Phone Number [facility]
[address] [place] [address], * Heparin Anti-Xa (04/08/2025 8:41 AM EDT) Heparin Anti-Xa (UFH) 0.33 0.30 - 0.70 IU/ml 04/08/2025 9:40 AM EDT [facility] Blood Venipuncture / Unknown 04/08/2025 8:41 AM EDT 04/08/2025 9:10 AM EDT Sushil Dean Jr., MD LAB BLOOD ORDERABLES Fi nal Result Performing Organization Address City/[facility]/ZIP Co de Phone Number [facility]
[address] [place] [address], * FL C Arm During Surgery (04/07/2025 [...] GENERAL ORDERABLES Final Result Performing Organization Address City/[facility]/ZIP Co de Phone Number [facility]
[address] [place] [address], [place] [phone] [facility]
[address] [place] [address], [place] [phone] * Anaerobic Culture - Swab, Leg, Right (04/07/2025 9:14 PM EDT) Anaerobic Culture No anaerobes isolated at 5 days ALIZA 04/13/2025 7:21 AM EDT [facility] Swab Structure of right lower limb / Unknown Collection / Unknown 04/07/2025 9:14 PM EDT 04/08/2025 4:36 AM EDT us Sushil Dean Jr., MD MICROBIOLOGY - GENERAL ORDERABLES Final Result [facility]
[address] [place] [address], * Anaerobic Culture - Tissue, Leg (04/07/2025 9:13 PM EDT) Anaerobic Culture No anaerobes isolated at 5 days ALIZA 04/13/2025 7:21 AM EDT [facility] Tissue Lower limb structure / Unknown Collection / Unknown 04/07/2025 9:13 PM EDT 04/08/2025 4:54 AM EDT Jason Álvarez DO MICROBIOLOGY - GENERAL ORDERABLE S Final Result Performing Organization Address [facility]/State/ZIP Co de Phone Number [facility]
[address] [place] [address], * Tissue / Bone Culture - Tissue, [...] Final Result [facility]
[address] [place] [address], [facility]
[address] [place] [address], [place] [phone] * (ABNORMAL) Wound Culture - Swab, Leg, [...] Final Result [facility]
[address] [place] [address], [place] [phone] [facility]
[address] [place] [address], [place] [phone] * Anaerobic Culture - Swab, Leg, Right (04/07/2025 9:07 PM EDT) Anaerobic Culture No anaerobes isolated at 5 days ALIZA 04/13/2025 7:21 AM EDT [facility] Swab Structure of right lower limb / Unknown Collection / Unknown 04/07/2025 9:07 PM EDT 04/08/2025 4:36 AM EDT us Sushil Dean Jr., MD MICROBIOLOGY - GENERAL ORDERABLES Final Result [facility]
[address] [place] [address], * Heparin Anti-Xa (04/07/2025 9:10 AM EDT) Pathologist [facility] Heparin Anti-Xa (UFH) 0.30 0.30 - 0.70 IU/ml 04/07/2025 10:12 AM EDT [facility] Blood Venipuncture / Unknown 04/07/2025 9:10 AM EDT 04/07/2025 9:38 AM EDT Una Perla PharmD LAB BLOOD ORDERABLES Final R esult Performing Organization Address City/[facility]/ZIP Co de Phone Number [facility]
[address] [place] [address], * (ABNORMAL) CBC Auto Differential (04/07/2025 9:10 AM EDT) Pathologist [facility] WBC 8.63 3.40 - 10.80 10*3/mm3 04/07/2025 9:50 AM EDT [facility] RBC 5.23 4.14 - 5.80 10*6/mm3 04/07/2025 9:50 AM EDT [facility] Hemoglobin 14.7 13.0 - 17.7 g/dL 04/07/2025 9:50 AM EDT [facility] Hematocrit 44.8 37.5 - 51.0 % 04/07/2025 9:50 AM EDT [facility] MCV 85.7 79.0 - 97.0 fL 04/07/2025 9:50 AM EDT [facility] MCH 28.1 26.6 - 33.0 pg 04/07/2025 9:50 AM EDT [facility] MCHC 32.8 31.5 - 35.7 g/dL 04/07/2025 9:50 AM EDT [facility] RDW [...] Final Resul t [facility]
[address] [place] [address], * (ABNORMAL) Basic Metabolic Panel (04/07/2025 9:10 [...] - 10.5 mg/dL 04/07/2025 10:19 AM EDT [facility] BUN/Creatinine Ratio 17.0 7.0 - 25.0 04/07/2025 10:19 AM EDT [facility] Anion Gap 9.2 5.0 - 15.0 mmol/L 04/07/2025 10:19 AM EDT [facility] eGFR 113.2 >60.0 mL/min/1.7 3 04/07/2025 10:19 AM EDT [facility] Blood [...] Final Resul t [facility]
[address] [place] [address], * MRI Tibia Fibula Right With & [...] [place] 04/07/2025 9:58 AM EDT Workstation ID: [id number] Narrative 04/07/2025 9:58 AM EDT MRI TIBIA [...] [place] 04/07/2025 9:58 AM EDT Workstation ID: [id number] Sushil Dean Jr., MD IMG MRI ORDERABLES Mary Beth l Result * Heparin Anti-Xa (04/07/2025 1:42 AM EDT) [facility] Heparin Anti-Xa (UFH) 0.38 0.30 - 0.70 IU/ml 04/07/2025 2:14 AM EDT [facility] Blood Venipuncture / Unknown 04/07/2025 1:42 AM EDT 04/07/2025 1:54 AM EDT Chelsie Turpin [facility] LAB BLOOD ORDERABLES Final R esult [facility]
[address] [place] [address], * Heparin Anti-Xa (04/06/2025 7:16 PM EDT) [facility] Heparin Anti-Xa (UFH) 0.33 0.30 - 0.70 IU/ml 04/06/2025 7:50 PM EDT [facility] Blood Venipuncture / Unknown 04/06/2025 7:16 PM EDT 04/06/2025 7:35 PM EDT Cherri Beatty [facility] LAB BLOOD ORDERABLES Final Res ult Performing Organization Address [facility] Co de Phone Number [facility]
[address] [place] [address], * Potassium (04/06/2025 7:16 PM EDT) [facility] Potassium 4.0 3.5 - 5.2 mmol/L 04/06/2025 7:53 PM EDT [facility] Blood Venipuncture / Unknown 04/06/2025 7:16 PM EDT 04/06/2025 7:35 PM EDT Jason Álvarez DO LAB BLOOD ORDERABLES Final Resul t Performing Organization Address [facility] de Phone Number [facility]
[address] [place] [address], * (ABNORMAL) Heparin Anti-Xa (04/06/2025 12:36 PM EDT) [facility] Heparin Anti-Xa (UFH) 0.24(L) 0.30 - 0.70 IU/ml 04/06/2025 1:23 PM EDT [facility] Blood Venipuncture / Unknown 04/06/2025 12:36 PM EDT 04/06/2025 1:07 PM EDT Una Perla PharmD LAB BLOOD ORDERABLES Final R esult Performing Organization Address [facility] Co de Phone Number [facility]
[address] [place] [address], * (ABNORMAL) Heparin Anti-Xa (04/06/2025 3:42 AM EDT) [facility] Heparin Anti-Xa (UFH) 0.25(L) 0.30 - 0.70 IU/ml 04/06/2025 5:30 AM EDT [facility] Blood Venipuncture / Unknown 04/06/2025 3:42 AM EDT 04/06/2025 4:59 AM EDT Chelsie Dyana [facility] LAB BLOOD ORDERABLES Final R esult [facility]
[address] [place] [address], * (ABNORMAL) Basic Metabolic Panel (04/06/2025 3:42 [...] 3:42 AM EDT 04/06/2025 5:20 AM EDT [facility] - 04/06/2025 5:59 AM [...] Final Resul t [facility]
[address] [place] [address], * (ABNORMAL) CBC Auto Differential (04/06/2025 3:41 [...] 97.0 fL 04/06/2025 5:[facility] MCH 27.4 26.6 - 33.0 pg [...] 1.5 % 04/06/2025 5:04 [facility] Immature Grans % 0.3 0.0 - 0.5 % 04/06/2025 5:04 AM [facility] Neutrophils, Absolute 7.09(H) 1.70 - 7.00 10*3/mm3 04/06/2025 5:04 [facility] Lymphocytes, Absolute 2.23 0.70 - 3.10 10*3/mm3 04/06/2025 5:04 AM [facility] Monocytes, Absolute 1.28(H) 0.10 - 0.90 [...] ORDERABLES Final Resul t Performing Organization Address City/[facility] Co de Phone Number [facility]
[address] [place] [address], [place] [phone] * Heparin Anti-Xa (04/05/2025 8:43 PM EDT) Pathologist [facility] Heparin Anti-Xa (UFH) 0.38 0.30 - 0.70 IU/ml 04/05/2025 9:09 PM EDT [facility] Blood Venipuncture / Unknown 04/05/2025 8:43 PM EDT 04/05/2025 8:55 PM EDT us Cherri Beatty [facility] LAB BLOOD ORDERABLES Final Res ult Performing Organization Address City/[facility] Co de Phone Number [facility]
[address] [place] [address], [place] [phone] * CK (04/05/2025 12:15 PM EDT) Creatine Kinase 140 20 - 200 U/L 04/05/2025 1:31 PM EDT [facility] Blood Venipuncture / Unknown 04/05/2025 12:15 PM EDT 04/05/2025 1:03 PM EDT Carlton Mead MD LAB BLOOD ORDERABLES Final R esult Performing Organization Address City/[facility]/ZIP Co de Phone Number [facility]
[address] [place] [address], * (ABNORMAL) Heparin Anti-Xa (04/05/2025 12:15 PM EDT) [facility] Heparin Anti-Xa (UFH) 0.17(L) 0.30 - 0.70 IU/ml 04/05/2025 1:21 PM EDT [facility] Blood Venipuncture / Unknown 04/05/2025 12:15 PM EDT 04/05/2025 1:04 PM EDT Una Perla PharmD LAB BLOOD ORDERABLES Final R esult Performing Organization Address City/[facility] Co de Phone Number [facility]
[address] [place] [address], * (ABNORMAL) aPTT (04/05/2025 3:54 AM EDT) [...] 0.5 U/ml are 60 to 70 seconds. [employer]uTher[employer]D LAB BLOOD ORDERABLES Final R esult [facility]
[address] [place] [address], * Heparin Anti-Xa (04/05/2025 3:54 AM EDT) Pathologist [facility] Heparin Anti-Xa (UFH) 0.30 0.30 - 0.70 IU/ml 04/05/2025 4:32 AM EDT [facility] Blood Venipuncture / Unknown 04/05/2025 3:54 AM EDT 04/05/2025 4:15 AM EDT [employer] LAB BLOOD ORDERABLES Final R esult Performing Organization Address City/[facility]/ZIP Co de Phone Number [facility]
[address] [place] [address], * (ABNORMAL) CBC Auto Differential (04/05/2025 3:54 [...] - 33.0 pg 04/05/2025 4:20 AM EDT [facility] MCHC 32.8 31.5 - [...] Final R esult [facility]
[address] [place] [address], * (ABNORMAL) Basic Metabolic Panel (04/05/2025 3:54 AM EDT) Glucose 152(H) 65 - 99 mg/dL 04/05/2025 4:40 AM EDT [facility] BUN 17.3 6.0 - 20.0 mg/dL 04/05/2025 4:40 AM EDT [facility] Creatinine 0.92 0.76 [...] - 29.0 mmol/L 04/05/2025 4:40 AM EDT [facility] Calcium 7.8(L) 8.6 - 10.5 mg/dL 04/05/2025 4:40 AM EDT [facility] BUN/Creatinine Ratio 18.8 7.0 - 25.0 04/05/2025 4:40 AM EDT [facility] Anion Gap 9.0 5.0 - 15.0 mmol/L 04/05/2025 4:40 AM EDT [facility] eGFR 105.2 >60.0 mL/min/1.7 3 04/05/2025 4:40 AM EDT [facility] Blood [...] MD LAB BLOOD ORDERABLES Final Re sult [facility]
[address] [place] [address], * (ABNORMAL) aPTT (04/05/2025 12:18 AM EDT) PTT 33.6(L) 60.0 - 90.0 seconds 04/05/2025 12:53 AM EDT [facility] Blood Venipuncture / Unknown 04/05/2025 12:18 AM EDT 04/05/2025 12:37 AM EDT [facility] - 04/05/2025 12:53 AM EDT PTT = The equivalent PTT values for the therapeutic range of heparin levels at 0.3 to 0.5 U/ml are 60 to 70 seconds. [employer] PharmD LAB BLOOD ORDERABLES Final R esult [facility]
[address] [place] [address], [place] [phone] * (ABNORMAL) Protime-INR (04/05/2025 12:18 AM EDT) Protime 15.9(H) 12.2 - 15.3 Seconds 04/05/2025 12:53 AM EDT [facility] INR 1.19(H) 0.89 - 1.12 04/05/2025 12:53 AM EDT [facility] Blood Venipuncture / Unknown 04/05/2025 12:18 AM EDT 04/05/2025 12:37 AM EDT [employer] PharmD LAB BLOOD ORDERABLES Final R esult Performing Organization Address [facility] Co de Phone Number [facility]
[address] [place] [address], [place] [phone] * Heparin Anti-Xa (04/05/2025 12:18 AM EDT) Pathologist [facility] Heparin Anti-Xa (UFH) 0.39 0.30 - 0.70 IU/ml 04/05/2025 12:54 AM EDT [facility] Blood Venipuncture / Unknown 04/05/2025 12:18 AM EDT 04/05/2025 12:37 AM EDT [employer] PharmD LAB BLOOD ORDERABLES Final R esult Performing Organization Address City/[facility]/ZIP Co de Phone Number [facility]
[address] [place] [address], [place] [phone] * MRI Tibia Fibula Right With & [...] MD 04/04/2025 11:00 PM EDT Workstation ID: [id number] Narrative 04/04/2025 11:00 PM EDT MRI TIBIA [...] MD 04/04/2025 11:00 PM EDT Workstation ID: [id number] Leonora Shepherd MD IMG MRI ORDERABLES Final Resu lt * POC Creatinine (04/04/2025 2:49 PM EDT) Creatinine 1.10 0.60 - 1.30 mg/dL 04/07/2025 7:14 PM EDT [facility] Comment:Serial Number: [id number] 7Operator: [id number] Venous Blood 04/04/2025 2:49 PM EDT 04/07/2025 7:14 PM EDT Jason Álvarez DO POINT OF CARE TEST ORDERABLES Fi nal Result [facility]
[address] [place] [address], [place] [phone] * (ABNORMAL) CBC Auto Differential (04/04/2025 2:47 PM EDT) [facility] Signature WBC 12.72(H) 3.40 - 10.80 [...] - 15.4 % 04/04/2025 2:56 PM EDT [facility] RDW-SD 40.3 37.0 - [...] - 45.3 % 04/04/2025 2:56 PM EDT [facility] Monocyte % 11.2 5.0 - 12.0 % 04/04/2025 2:56 PM EDT [facility] Eosinophil % 0.4 0.3 - 6.2 % 04/04/2025 2:56 PM EDT [facility] Basophil % 0.2 0.0 - 1.5 % 04/04/2025 2:56 PM EDT [facility] Immature Grans % 0.2 0.0 - 0.5 % 04/04/2025 2:56 PM EDT [facility] Neutrophils, Absolute 9.52(H) 1.70 - 7.00 10*3/mm3 04/04/2025 2:56 PM EDT [facility] Lymphocytes, Absolute 1.66 0.70 - 3.10 10*3/mm3 04/04/2025 2:56 PM EDT [facility] Monocytes, Absolute 1.43(H) 0.10 - 0.90 10*3/mm3 04/04/2025 2:56 PM EDT [facility] Eosinophils, Absolute 0.05 0.00 - 0.40 10*3/mm3 04/04/2025 2:56 PM EDT [facility] Basophils, Absolute [...] Fin al Result [facility]
[address] [place] [address], * (ABNORMAL) C-reactive Protein (04/04/2025 2:47 PM EDT) Pathologist [facility] C-Reactive Protein 8.57(H) 0.00 - 0.50 mg/dL 04/04/2025 3:26 PM EDT [facility] Blood Venipuncture / Unknown 04/04/2025 2:47 PM EDT 04/04/2025 2:52 PM EDT Mario Ortiz Keo LAB BLOOD ORDERABLES Fin al Result [facility]
[address] [place] [address], * (ABNORMAL) Sedimentation Rate (04/04/2025 2:47 PM EDT) [facility] Sed Rate 51(H) 0 - 15 mm/hr 04/04/2025 3:06 PM EDT [facility] Blood Venipuncture / Unknown 04/04/2025 2:47 PM EDT 04/04/2025 2:52 PM EDT Mario Ortiz Keo LAB BLOOD ORDERABLES Fin al Result Performing Organization Address City/[facility]/ZIP Co de Phone Number [facility]
[address] [place] [address], * Comprehensive Metabolic Panel (04/04/2025 2:47 PM [...] - 117 U/L 04/04/2025 3:26 PM T [facility] Total Bilirubin 1.0 0.0 - 1.2 mg/dL 04/04/2025 3:26 PM EDT [facility] Globulin 3.2 gm/dL 04/04/2025 3:26 PM T [facility] Comment:Calculated Result A/G Ratio 1.3 g/dL 04/04/2025 3:26 PM EDT [facility] BUN/Creatinine Ratio 19.5 7.0 - 25.0 04/04/2025 3:26 PM T [facility] Anion Gap 10.7 5.0 - 15.0 mmol/L 04/04/2025 3:26 PM T [facility] eGFR 102.5 >60.0 [...] Fin al Result [facility]
[address] [place] [address], documented in this encounter Visit Diagnoses Diagnosis [...] & Select [facility] Electrolyte Replacement Protocol Algorithm to View Details [...] & Select [facility] Electrolyte Replacement Protocol Algorithm to View Details [...] Salazar, KELL)1943 (Given - Provider: Anahy Marcelino, LITHOGRAPH [employer]ESS OPERATOR [employer])[id number] (Canceled Entry - Provider: Anahy Marcelino LITHOGRAPH PRESS OPERATOR [employer] - Comment: previously given) [id number] (Given - [...] for a lower pain scale. 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
--- OUTSIDE RECORDS SUMMARY | 2025-04-08 15:34 | XMS_ITS | Encounter Summary ---
Author Organization [facility] Address [address] [place] [address] Care Team Providers Care Assistant Tennis Coach Name Role Phone Provider, No Known Primary Care Provider Unavail able Reason for Visit * Auth/Cert Specialty Diagnoses / Procedures Referred By Bulmaro muniz Referred To Contact Diagnoses Right BKA infection Referral ID Status Reason Start Date Expiration Date Visits Re quested Visits Authorized [id number] 1 1 Encounter Details Date Type Department Care Team (Late st Contact Info) Description 04/08/2025 3:34 PM EDT Anesthesia Event [facility] OR [address] [place] [address] Ulises Hoffman MD [address] [place] [address] Jairo Brooks MD [address] [place] [address] Anesthesia Record Procedure Summary Procedure Name Responsible [...] 0.6 oz pur e alcohol) [facility] Utilities Answer Date Recorded In the past 12 months has [employer], oil, or water [employer] threatened to shut off services in your [...] Date: 04/08/25 Room / Location: [facility] OR [address] [place] [address] [facility] [place] Anesthesia Start: 1533 Anesthesia Stop: [...] ROS Abdominal Substance History - negative use SECONDARY SCHOOL 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
--- OUTSIDE RECORDS SUMMARY | 2025-04-25 13:23 | XMS_ITS | Clinical Summary ---
Author Organization [facility] Address [address] [facility] [address] [place] [address] Phone Care Team Providers Care Supervisor Respiratory Name Role Phone Unavailable Unavailable Conditions or Problems No information available. Medications No information available. Medications Administered No information available. Allergies, Adverse Reactions, Alerts No information available. Results No information available. Plan of Care No information available. Procedures No information available. Vital Signs No information available. Immunizations No information available. Advance Directives No information available.
--- OUTSIDE RECORDS SUMMARY | 2025-04-25 13:24 | XMS_ITS | Patient Health Record ---
[facility] [address] [place] [id number] Care Team Providers Care Stem Processing Machine Operator Name Role Phone Zeeshan Salazar Primary Care Provider [phone] Allergies No Known Allergies Medications Medication SIG [...] W/U Status Risk Notes Problem Essential hypertension (99853073) HTN [Hypertension] (401.9) Active confirmed appears resolved Problem Hypothyroidism (41191140) Hypothyroidism NOS (244.9) Active confirmed Problem Hyperlipidemia (20503679) Hyperlipidemia (272.4) Active confirmed Problem Constipation (40337463) Constipation, unspecified constipation type (K59.00) Active confirmed Problem History of pulmonary embolism on long-term anticoagulation therapy (61501280668633233 ) Hx pulmonary embolism (Z86.711) Active confirmed Problem Long-term current use of anticoagulant (292718431) Current use of intermediate accountant anticoagulation (Z79.01) Active confirmed Problem Adjustment disorder with anxious mood (47494127) Adjustment disorder with anxious mood (F43.22) Active confirmed Problem History of pulmonary embolus (527704487) History of pulmonary embolus (PE) (Z86.711) Active confirmed Problem Methicillin resistant Staphylococcus aureus infection (disorder) (748235941) Infection of wound due to methicillin resistant Staphylococcus aureus (MRSA) (A49.02) Active confirmed Problem Arthritis of knee (682264176) Arthritis of knee (M17.10) Active confirmed Problem Amputated below knee (375713182) Status post below knee amputation of right lower extremity (Z89.511) Active confirmed Problem Gastroesophageal reflux disease (924954180) Gastroesophageal reflux disease, unspecified whether esophagitis present [...]
--- OUTSIDE RECORDS SUMMARY | 2025-04-25 13:27 | XMS_ITS | Encounter Summary ---
Author Organization Healthcare Address [address] [place] [address] Care Team Providers Care Lead Technical Architect Name Role Phone Unavailable Primary Care Provider Unavailabl e Encounter Details Date Type Department Care Team (Late st Contact Info) Description 10/19/2022 Lab Requisition [facility] [address] [place] [address] Sushil Dean MD [address] [place] [address] Encounter for general adult medical examination without [...] by MALDI tof mass spectrometry using the Gazzang database and is for research use only. The organism value for this result has been updated. These results have been appended to the previously preliminary verified report. Bone Specimen from bone / Unknown 10/19/2022 5:17 PM EDT 10/19/2022 9:49 PM EDT Sushil Dean MD LAB MICROBIOLOGY - GENERAL O RDERABLES Final Result Performing Organization Address [facility] de Phone Number HEALTHCARE LAB [address] [place] [address] * Bone Culture and Gram Stain (10/19/2022 5:17 PM EDT) Culture No growth at day 4 2022 8:14 AM EDT [facility] Gram Stain Result Few Polymorphonuclear leukocytes 10/23/2022 8:14 AM EDT [facility]ARE [facility] Gram Stain Result No organisms seen 10/23/2022 8:14 AM EDT [facility] Bone Specimen from bone / Unknown 10/19/2022 5:17 PM EDT 10/19/2022 9:49 PM EDT Sushil Dean MD LAB MICROBIOLOGY - GENERAL O RDERAADDI Final Result Performing Organization Address [facility] Phone Number [facility]ARE [facility] [address] [place] [address] documented in this encounter Visit Diagnoses Diagnosis Encounter for general adult medical examination without abnormal findings documented in this encounter
--- OUTSIDE RECORDS SUMMARY | 2025-04-25 13:27 | XMS_ITS | Encounter Summary ---
Author Organization [facility] Address [address] [place] [address] Care Team Providers Care Finishing Range Feeder Name Role Phone Unavailable Primary Care Provider Unavailabl e Encounter Details Date Type Department Care Team (Late st Contact Info) Description 10/03/2022 Lab Requisition [facility] [address] [place] [address] Dalila Cox MD [address] [place], [place] [id number] Encounter for general adult medical examination without [...] Culture Neelima albicans(A) 10/05/2022 11:58 AM EDT [facility] Comment: This result was determined by MALDI tof Mass spectrometry. This assay was developed and its performance characteristics determined by [facility] as appropriate for clinical purposes. [...] Edited Result - Final [facility] [address] [place] [address] documented in this encounter Visit Diagnoses Diagnosis Encounter for general adult medical examination without abnormal findings documented in this encounter
--- OUTSIDE RECORDS SUMMARY | 2025-04-25 13:27 | XMS_ITS | Encounter Summary ---
Author Organization Healthcare Address [address] [place] [address] Care Team Providers Care Seating Captain Name Role Phone Unavailable Primary Care Provider Unavailabl e Encounter Details Date Type Department Care Team (Late st Contact Info) Description 07/20/2022 Lab Requisition [facility] [address] [place] [address] Sushil Dean MD [address] [place] [address] Encounter for general adult medical examination without [...]
--- OUTSIDE RECORDS SUMMARY | 2025-04-25 13:27 | XMS_ITS | Encounter Summary ---
Author Organization Healthcare Address [address] [place] [address] Care Team Providers Care Yeast Washer Name Role Phone Unavailable Primary Care Provider Unavailabl e Encounter Details Date Type Department Care Team (Late st Contact Info) Description 10/01/2022 Lab Requisition [facility] [address] [place] [address] Sushil Dean MD [address] [facility]. [address] [place] [address] Encounter for general adult medical examination without [...] has been identified using the FDA Approved Neuralayper CA System The organism value for this [...] 10/04/2022 2:17 PM EDT Refer to culture [id number] FOR SUSCEPTIBILITIES ON NEELIMA ALBICANS us Sushil Dean MD LAB MICROBIOLOGY - GENERAL O RDERABLES Final Result [facility] [address] [place] [address] documented in this encounter Visit Diagnoses Diagnosis Encounter for general adult medical examination without abnormal findings documented in this encounter
--- OUTSIDE RECORDS SUMMARY | 2025-04-25 13:27 | XMS_ITS | Encounter Summary ---
Author Organization Healthcare Address [address] [place] [address] Care Team Providers Care Full Stack Python Developer Name Role Phone Unavailable Primary Care Provider Unavailabl e Encounter Details Date Type Department Care Team (Late st Contact Info) Description 05/17/2023 Lab Requisition [facility] [address] [place] [address] Sushil Dean MD [address] [facility] [address] [place] [address] Encounter for general adult medical examination without [...] O RDERABLES Final Result Performing Organization Address City/[facility] Co de Phone Number [facility] [address] [place] [address] * Bone Culture and Gram Stain (05/17/2023 [...] O RDERABLES Final Result Performing Organization Address [facility] Co de Phone Number [facility] [address] [place] [address] documented in this encounter Visit Diagnoses Diagnosis Encounter for general adult medical examination without abnormal findings documented in this encounter
--- OUTSIDE RECORDS SUMMARY | 2025-04-25 13:27 | XMS_ITS | Clinical Summary ---
Author Organization Healthcare Address [address] [place] [address] Care Team Providers Care Fruit Ii Farmworker Name Role Phone Unavailable Primary Care Provider [...]
--- OUTSIDE RECORDS SUMMARY | 2025-04-25 13:27 | XMS_ITS | Encounter Summary ---
Author Organization [facility] Address [address] [place] [address] Care Team Providers Care Scientific Helper Name Role Phone Provider, No Known [...] 2:25 PM EDT Cherri Grmim RN * [place] Suicide Severity Rating Scale (Screener/Recent Self-Report) Question [...] documented as of this encounter Care Teams Scientific Helper Relationship Specialty Start Date End Date Provider, No Known [facility] [place] [address] PCP - General 05/09/23 documented as of this encounter
--- OUTSIDE RECORDS SUMMARY | 2025-04-25 13:27 | XMS_ITS | Encounter Summary ---
Author Organization Healthcare Address [address] [place] [address] Care Team Providers Care Miniature Set Builder Name Role Phone Unavailable Primary Care Provider Unavailabl e Encounter Details Date Type Department Care Team (Late st Contact Info) Description 08/12/2022 Lab Requisition [facility] [address] [place] [address] Sushil Dean MD [address] [place] [address] Encounter for general adult medical examination without [...] has been identified using the FDA Approved BLINQ Networkser CA System The organism value for [...] O ERIC Final Result Performing Organization Address City/[facility] de Phone Number [facility]ALTHCARE [facility] [address] [place] [address] * Bone Culture and Gram Stain (08/12/2022 [...] Performing Organization Address City/[facility] de Phone Number [facility] [address] [place] [address] documented in this encounter Visit Diagnoses Diagnosis Encounter for general adult medical examination without abnormal findings documented in this encounter
--- OUTSIDE RECORDS SUMMARY | 2025-04-25 13:27 | XMS_ITS | Clinical Summary ---
Author Organization [facility] Address [address] [place] [address] Care Team Providers Care Global Project Manager Name Role Phone Provider, No Known [...] Discontinue d(Stop Taking at Discharge) Lactobacillus- Inulin ([facility] [employer] [facility]) capsule Take 200 mg by mouth Daily. [...] Anesthesia Event [facility] [place] [place] [address] [place] [phone] Ulises Hoffman MD Wells, Jeremy B., MD 04/08/2025 2:45 PM EDT - 04/08/2025 4:04 PM EDT Surgery [facility] OR [address] [place] [address] Sushil Dean Jr., MD LEG DEBRIDEMENT AND IRRIGATION 04/07/2025 8:36 PM EDT Anesthesia Event [facility] OR [address] [place] [address] Luci Alonso DO 04/07/2025 6:00 PM EDT - 04/07/2025 6:52 PM EDT Surgery [facility] OR [address] [place] [address] Sushil Dean Jr., MD LEG DEBRIDEMENT, IRRIGATION 04/04/2025 4:10 PM EDT - 04/11/2025 1:58 PM EDT Hospital Encounter [facility] 5G [address] [place] [address] Mario Crowley DO Anderson, Laurie, [...] = 0.6 oz pur e alcohol) [facility] Utilities Answer Date Recorded In the past 12 months has [employer], gas, oil, or water [employer] threatened to shut off services in your [...] or training? Not on file Preferred Language Thai 04/07/2025 Sex and Gender Information Value Date [...] this topic Medical Devices Implanted Type Area Clinical Dietetic Technician Device Identifier Shelf Expiration Date Model / Serial / Lot Dev Wnd/Cls Contrl Tiss Stratafix Spiral Pls Pds Ct1 0 22cm - [id number] Implanted:Qty: 1 on 04/08/2025 by Sushil Dean Jr., MD at [facility] Implant Right: Leg [employer] 12/07/2025 [id number] / / [id number] Procedures Procedure Name Priority [...] the time period is included. Pathologist [facility] WBC 7.87 3.40 - 10.80 10*3/mm3 04/11/2025 [...] - 6.2 % 04/11/2025 4:02 AM EDT [facility] Basophil % 0.4 0.0 - 1.5 % 04/[facility] Immature Grans % 0.4 0.0 - 0.5 % 04/11/2025 4:02 AM [facility] Neutrophils, Absolute 4.69 1.70 - 7.00 10*3/mm3 04/11/2025 4:02 AM [facility] Lymphocytes, Absolute 2.07 0.70 - 3.10 10*3/mm3 04/11/2025 4:02 AM [facility] Monocytes, Absolute 0.73 0.10 - 0.90 10*3/mm3 04/11/2025 4:02 AM [facility] Eosinophils, Absolute 0.32 0.00 - 0.40 10*3/mm3 04/11/2025 4:02 AM [facility] Basophils, Absolute 0.03 0.00 - 0.20 10*3/mm3 04/11/2025 4:02 AM [facility] Immature Grans, Absolute 0.03 0.00 - 0.05 10*3/mm3 04/11/2025 4:02 AM [facility] nRBC 0.0 0.0 - 0.2 /100 WBC 04/11/2025 4:02 AM [facility] Blood Venipuncture / Unknown 04/11/2025 3:40 AM EDT 04/11/2025 3:59 AM EDT Sushil Dean Jr., MD LAB BLOOD ORDERABLES Fi nal Result [facility]
[address] [place] [address], * (ABNORMAL) Comprehensive Metabolic Panel (04/11/2025 3:40 [...] race as a factor us Rosario Hill DIRECTOR FUNDS DEVELOPMENT LAB BLOOD ORDERABLES Final Result [facility]
[address] [phone], * Heparin Anti-Xa (04/10/2025 3:46 AM EDT) Only the most recent of13 resultswithin the time period is included. Heparin Anti-Xa ([facility]) 0.35 0.30 - 0.70 IU/ml 04/10/2025 4:23 AM EDT [facility] Blood Venipuncture / Unknown 04/10/2025 3:46 AM EDT 04/10/2025 3:53 AM EDT Larisa Hamilton [facility] LAB BLOOD ORDERABLES Final R esult [facility]
[address] [place] [address], * (ABNORMAL) Basic Metabolic Panel (04/10/2025 3:46 AM EDT) Only the most recent of6 resultswithin the time period is included. [facility] Glucose 125(H) 65 - 99 mg/dL [...] t [facility]
[address] [place] [address], * Wound Culture - Swab, Leg, Right (04/08/2025 3:40 PM EDT) Only the most recent of3 resultswithin the time period is included. Wound Culture No growth at 3 days ALIZA 04/11/2025 10:40 AM EDT [facility] Gram Stain Few (2+) [...] Organization Address City/[facility]/ZIP Co de Phone Number [facility]
[address] [place] [address], [facility]
[address] [place] [address], [place] [phone] * Anaerobic Culture - Swab, Leg, Right (04/08/2025 3:40 PM EDT) Only the most recent of4 resultswithin the time period is included. Anaerobic Culture No anaerobes isolated at 5 days ALIZA 04/13/2025 7:24 AM EDT [facility] Swab Structure of right lower limb / Unknown 04/08/2025 3:40 PM EDT 04/08/2025 8:05 PM EDT Sushil Dean Jr., MD MICROBIOLOGY - GENERAL ORDERABLES Final Result Performing Organization Address [facility] Co de Phone Number [facility]
[address] [place] [address], * Scan Slide (04/08/2025 8:41 AM EDT) [...] Organization Address City/[facility]/ZIP Co de Phone Number [facility]
[address] [place] [address], [place] [phone] * FL C Arm During Surgery (04/07/2025 9:32 PM EDT) Narrative SYSTEMGENERATED, DOCUMENTATION - 04/07/2025 9:38 PM EDT This procedure was auto-finalized with no dictation required. us Sushil Dean Jr., MD IMG FLUOROSCOPY ORDERAB LES Final Result * Tissue / Bone Culture - Tissue, Leg, Right (04/07/2025 9:13 PM EDT) Tissue Culture No growth at 3 days ALIZA 04/11/2025 10:36 AM EDT [facility] Gram Stain Rare (1+) WBCs seen 04/11/2025 10:36 AM EDT [facility] Gram Stain No organisms seen 04/11/2025 10:36 AM EDT [facility] Tissue Structure of right lower limb / Unknown 04/07/2025 9:13 PM EDT 04/08/2025 4:54 AM EDT us Sushil Dean Jr., MD MICROBIOLOGY - GENERAL ORDERABLES Final Result [facility]
[address] [place] [address], [facility]
[address] [place] [address], * BH AN ETT AIRWAY (04/07/2025 8:44 [...] [place] 04/07/2025 9:58 AM EDT Workstation ID: [id number] Narrative 04/07/2025 9:58 AM EDT MRI TIBIA [...] Buenrostro 04/07/2025 9:58 AM EDT Workstation ID: [id number] Sushil Dean Jr., MD IMG MRI ORDERABLES Mary Beth l Result * Potassium (04/06/2025 7:16 PM EDT) Potassium 4.0 3.5 - 5.2 mmol/L 04/06/2025 7:53 PM EDT [facility] Blood Venipuncture / Unknown 04/06/2025 7:16 PM EDT 04/06/2025 7:35 PM EDT Jason Álvarez DO LAB BLOOD ORDERABLES Final Resul t Performing Organization Address City/[facility]/ZIP Co de Phone Number [facility]
[address] [place] [address], * CK (04/05/2025 12:15 PM EDT) Creatine Kinase 140 20 - 200 U/L 04/05/2025 1:31 PM EDT [facility] Blood Venipuncture / Unknown 04/05/2025 12:15 PM EDT 04/05/2025 1:03 PM EDT Carlton Mead MD LAB BLOOD ORDERABLES Final R esult Performing Organization Address City/[facility]/ZIP Co de Phone Number [facility]
[address] [place] [address], * (ABNORMAL) aPTT (04/05/2025 3:54 AM EDT) [...] 0.5 U/ml are 60 to 70 seconds. [employer] LAB BLOOD ORDERABLES Final R esult Performing Organization Address City/[facility]/ZIP Co de Phone Number [facility]
[address] [place] [address], * (ABNORMAL) Protime-INR (04/05/2025 12:18 AM EDT) Pathologist [facility] Protime 15.9(H) 12.2 - 15.3 Seconds 04/05/2025 12:53 AM EDT [facility] INR 1.19(H) 0.89 - 1.12 04/05/2025 12:53 AM EDT [facility] Blood Venipuncture / Unknown 04/05/2025 12:18 AM EDT 04/05/2025 12:37 AM EDT [employer] LAB BLOOD ORDERABLES Final R esult Performing Organization Address City/[facility]/ZIP Co de Phone Number [facility]
[address] [place] [address], * POC Creatinine (04/04/2025 2:49 PM EDT) Pathologist [facility] Creatinine 1.10 0.60 - 1.30 mg/dL 04/07/2025 7:14 PM EDT [facility] Comment:Serial Number: [id number] Venous Blood 04/04/2025 2:49 PM EDT 04/07/2025 7:14 PM EDT Jason Álvarez DO POINT OF CARE TEST ORDERABLES Fi nal Result Performing Organization Address [facility] Co de Phone Number [facility]
[address] [place] [address], * (ABNORMAL) Sedimentation Rate (04/04/2025 2:47 PM EDT) Sed Rate 51(H) 0 - 15 mm/hr 04/04/2025 3:06 PM EDT [facility] Blood Venipuncture / Unknown 04/04/2025 2:47 PM EDT 04/04/2025 2:52 PM EDT Mario Crowley LAB BLOOD ORDERABLES Fin al Result Performing Organization Address [facility] de Phone Number [facility]
[address] [place] [address], * (ABNORMAL) C-reactive Protein (04/04/2025 2:47 PM EDT) C-Reactive Protein 8.57(H) 0.00 - 0.50 mg/dL 04/04/2025 3:26 PM EDT [facility] Blood Venipuncture / Unknown 04/04/2025 2:47 PM EDT 04/04/2025 2:52 PM EDT Mario Crowley DO LAB BLOOD ORDERABLES Fin al Result Performing Organization Address [facility] Co de Phone Number [facility]
[address] [place] [address], from Last 3 Months Additional Health Concerns [...] Of Support Discussed With: Patient Care Teams Global Project Manager Relationship Specialty Start Date End Date Provider, No Known [facility] [place] [address] PCP - General 05/09/23
--- OUTSIDE RECORDS SUMMARY | 2025-04-25 13:27 | XMS_ITS | Encounter Summary ---
Author Organization Healthcare Address [address] [place] [address] Care Team Providers Care Systems Checkout Mechanic Name Role Phone Unavailable Primary Care Provider Unavailabl e Encounter Details Date Type Department Care Team (Late st Contact Info) Description 05/13/2023 Lab Requisition [facility] [address] [place] [address] Sushil Dean MD [address] [facility] [place] [address] Encounter for general adult medical examination without [...] O RDERABLES Final Result Performing Organization Address [facility] Co de Phone Number [facility] [address] [place] [address] * Anaerobic Culture (05/13/2023 9:17 AM EDT) Culture No growth at day 4 05/20/2023 10:35 AM EST [facility] Bone 05/13/2023 9:17 AM EDT 05/13/2023 1:25 PM EDT us Sushil Dean MD LAB MICROBIOLOGY - GENERAL O RDERABLES Final Result Performing Organization Address [facility] de Phone Number [facility] [address] [place] [address] * Bone Culture and Gram Stain (05/13/2023 [...] O RDERABLES Final Result Performing Organization Address [facility] de Phone Number [facility] [address] [place] [address] documented in this encounter Visit Diagnoses Diagnosis Encounter for general adult medical examination without abnormal findings documented in this encounter
--- OUTSIDE RECORDS SUMMARY | 2025-04-25 13:27 | XMS_ITS | Encounter Summary ---
Author Organization Healthcare Address [address] [place] [address] Care Team Providers Care Metal Machine Setter Name Role Phone Unavailable Primary Care Provider Unavailabl e Encounter Details Date Type Department Care Team (Late st Contact Info) Description 07/20/2022 Lab Requisition [facility] [address] [place] [address] Sushil Dean MD [address] [place] [address] Encounter for general adult medical examination without [...] at day 4 07/27/2022 11:32 AM EST [facility] Bone Specimen from bone / Unknown 07/20/2022 1:36 PM EST 07/20/2022 5:52 PM EST us Sushil Dean MD LAB MICROBIOLOGY - GENERAL O RDERABLES Final Result Performing Organization Address [facility] Co de Phone Number [facility] [address] [place] [address] * Bone Culture and Gram Stain (07/20/2022 1:36 PM EST) Culture No growth at day 4 2022 9:16 AM EST [facility] Gram Stain Result Rare Polymorphonuclear leukocytes 07/24/2022 9:16 AM EST [facility] Gram Stain Result No organisms seen 07/24/2022 9:16 AM EST [facility] Bone Specimen from bone / Unknown 07/20/2022 1:36 PM EST 07/20/2022 5:52 PM EST us Sushil Dean MD LAB MICROBIOLOGY - GENERAL O RDERABLES Final Result Performing Organization Address [facility] Co de Phone Number [facility] [address] [place] [address] documented in this encounter Visit Diagnoses Diagnosis Encounter for general adult medical examination without abnormal findings documented in this encounter
[2025-04-25 14:00] VITALS: BP 108/68; PULSE 71; RESP 18; TEMP 36.8; O2SAT 99
[2025-04-25 14:35] VITALS: BP 116/73; PULSE 75
[2025-04-25] MEDS: SODIUM CHLORIDE 0.9% 10ML FLUSH SYRINGE 10 ML IV (15:37)
== END 2025-04-25 23:59 | disposition home or self-care (01) ==
LOC: INF 13:22
PROVIDERS: PCP Nurse Practitioner Family; Visit Provider Internal Medicine Infectious Disease
DX: L03.115 Cellulitis of right lower limb (principal); L02.415 Cutaneous abscess of right lower limb; Z89.511 Acquired absence of right leg below knee; D68.2 Hereditary deficiency of other clotting factors; I10 Essential (primary) hypertension; E78.5 Hyperlipidemia, unspecified; F39 Unspecified mood [affective] disorder
CPT/HCPCS: 96365; J0878

== ENCOUNTER 2025-04-26 09:28 | Outpatient (CLI) | payer MEDICARE, SELFPAY ==
--- OUTSIDE RECORDS SUMMARY | 2023-12-12 05:00 | XMS_ITS ---
Author Organization Ayaka Address 1210 [facility] 36 [facility] 2C [place] [phone] Care Team Providers Care Polysom Tech Name Role Phone Zeeshan Salazar Primary Care Provider [phone] Macario Burkett [phone] REASON FOR VISIT 6 Month Check Up Encounters Encounter Location Date Provider Diagnosis [place] 1210 [facility] [address] [place] [phone] 12/12/2023 Macario Burkett Plan Of Treatment No Information Progress Notes * Won MEDRANO ZeeshanDOB: [birth year] (44 yo M)Acc No.[id number]:12/12/2023 Progress Notes Patient: Won SPANN Provider: Colleen Burkett M.D. :1980 A ge:43 Y S ex:Male Date:12/12/2023 Address:[address] [place] [address] [id number] Pcp:Zeeshan Salazar Subjective: * Chief Complaints: * 1 . 6 Month Check Up. * Medical History: Objective: * Vitals: Assessment: Plan: * Treatment: * Images: Billing Information: * Visit Code: * Procedure Codes: * Electronic signature of Micaela Burkett MD on 04/26/2025 at 09:31 AM EDT Sign off status: Pending * Provider: Colleen Burkett M.D. Date: 12/12/2023 Generated for Nany jorgensen/Elaine/Pro on: 1 09:31 AM EDT
--- OUTSIDE RECORDS SUMMARY | 2025-04-04 16:10 | XMS_ITS | Encounter Summary ---
Author Organization [facility] Address [address] [place] [address] Care Team Providers Care Research And Development Scientist Name Role Phone Provider, No Known Primary Care Provider Unavail able Reason for Visit * Reason Comments Leg Swelling * Auth/Cert Specialty Diagnoses / Procedures Referred By Contlevy t Referred To Contact Diagnoses Right BKA infection Referral ID Status Reason Start Date Expiration Date Visits Re quested Visits Authorized [id number] 1 1 Encounter Details Date Type Department Care Team (Late st Contact Info) Description 04/04/2025 4:10 PM EDT - 04/11/2025 1:58 PM EDT Hospital Encounter [address] [place] [address] Mario Crowley, [address] [place] [address] Leonora Shepherd MD [address] [address] Jason Álvarez DO [address] [address] Jadyn Richardson DO [address] [address] Cellulitis of right lower extremity (Primary Dx); [...] e alcohol) [facility] Utilities Answer Date Recorded In the past 12 months has th e [employer], gas, oil, or water company threatened to [...] or training? Not on file Preferred Language Singaporean 04/07/2025 Sex and Gender Information Value Date [...] 2:25 PM EDT Cherri Grimm RN * [place] Suicide Severity Rating Scale (Screener/Recent Self-Report) Question [...] from the original note were not included. [facility] Medicine Services DISCHARGE SUMMARY Patient Name: [...] Date/Time Wound Culture - Swab, Leg, Right [[id number]] (Abnormal) (Susceptibility) Collected: 04/07/252106 Lab Status: Final [...] Units Date/Time FL C Arm During Surgery [[id number]] Resulted: 04/07/252137 Updated: 04/07/252137 Narrative: This procedure was auto-finalized with no dictation required. MRI Tibia Fibula Right With & Without Contrast [[id number]] Collected: 04/07/25 0938 Updated: 04/07/25 1001 Narrative: [...] Buenrostro 04/07/2025 9:58 AM EDT Workstation ID: [id number] MRI Tibia Fibula Right With & Without Contrast [[id number]] Collected: 04/04/252256 Updated: 04/04/252302 Narrative: MRI TIBIA [...] represent a small area of phlegmonous change ([id number] image 10) measuring approximately 1.6 cm which [...] MD 04/04/2025 11:00 PM EDT Workstation ID: [id number] Pending Labs Order Current Status Fungus Culture [...] These Medications [facility] capsule doxycycline 100 MG tablet Commonly [...] Male) Date of 1980 Social Security Number [id number] [place] [id number] Anglican Unknown Marital Status Unknown Admission Date 04/04/2025 Admission Type Emergency Admitting Provider Jadyn Richardson DO Attending Provider Jadyn Richardson DO Department, Room/Bed [address], S565/1 Discharge Date Discharge Disposition Discharge [...] Group [place] [id number] Payor Plan Address Payor Plan Phone Number Payor Plan Fax Number Effective Dates [employer] [address] [address] 08/10/2023 - None Entered [place] [address] Subscriber Name Subscriber Date Member ID WON DENNIS 1980 [id number] Emergency Contacts Tape Weaver (Rel.) Home Phone Work Phone Mobile Phone Avril Dennis (Spouse) -- -- [phone] LewRobert (Relative) -- -- [phone] [place] [facility] [address] Patient: ROOM: [facility] Won Dennis [address] [place] [address] : 1980 SSN: [id number] Sex: M PCP: Provider, No Known Emergency Contact Information Name Relation Home Work Mobile Avril Dennis Spouse [phone] Other Contacts Name Relation Home Work Mobile Robert Hackett Relative [phone] INSURANCE PAYOR PLAN GROUP # SUBSCRIBER ID Primary: Secondary: MEDICARE [place] [id number] Admitting Diagnosis: 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] Order Date: Apr 09, 2025 Case Management Slip Filler Consult (Order ID: [id number]) Diagnosis: Priority: Routine Expected Date: Expiration Date: Interval: Once Count: Comments: Outpatient orders: 1. Outpatient intravenous antibiotic therapy: Daptomycin 800 mg IV daily to be supplied by [facility] 2. Home health to perform [...] INFECTIOUS DISEASE Progress Note Won Dennis 1980 [id number] Date of Consult: 04/10/2025 Admission Date: 04/04/2025 [...] which prompted him to seek treatment at [facility]. He is known to Dr. Dean. [...] Jr., MD, 20 mg at 04/09/25906 heparin 02022 units/250 mL (100 units/mL) in 0.45 % [...] Units Date/Time FL C Arm During Surgery [[id number]] Resulted: 04/07/252137 Updated: 04/07/252137 Narrative: This procedure was auto-finalized with no dictation required. MRI Tibia Fibula Right With & Without Contrast [[id number]] Collected: 04/07/25 0938 Updated: 04/07/25 1001 Narrative: [...] Chitra 04/07/2025 9:58 AM EDT Workstation ID: [id number] Impression: Recurrent Right BKA stump abscess/cellulitis- this [...] disposition with the pharmacist at [facility] today. I will sign off Outpatient orders: 1. Outpatient intravenous antibiotic therapy: Daptomycin 800 mg IV daily to be supplied by [facility] 2. Home health to perform weekly PICC [...] Time: 04/10/251323 Signed Expand All Collapse All [facility] Medicine Services PROGRESS NOTE Patient Name: [...] Date/Time Wound Culture - Swab, Leg, Right [[id number]] (Abnormal) (Susceptibility) Collected: 04/07/252106 Lab Status: Final [...] Row Name 04/06/25 1143 Sit-Stand Transfer Sit-Stand [place] (Transfers) modified independence -LM Comment, (Sit-Stand Transfer) Pt stood from recliner. Not holding onto walker, pt able to pull his pants up while balancing on his one leg. -LM Row Name 04/06/25 1143 Gait/Stairs (Locomotion) [place] Level (Gait) modified independence -LM Distance in [...] Nurse Physical Therapy Education Title: PT OT MUSIC REHABILITATION THERAPIST Therapies (Done) Topic: Physical Therapy (Done) Point: [...] Description Service Date Service Provider Modifiers Qty [id number] PT EVAL LOW COMPLEXITY 3 04/06/2025 Susan [...] mg Daily 04/05/2025 -- Route: Oral heparin 25512 units/250 mL (100 units/mL) in 0.45 % [...] -- Admin Instructions: Open Order & [facility] Electrolyte Replacement Protocol Algorithm to [...] Dean MD April 21 vs April 22 [facility] [address], [address] [facility], [address] Please schedule at [phone] VONDA Garcia 04/11/25 08:32 EDT Cosigned by Sushil Dean Jr., MD at 04/19/2025 10:33 AM EDT Associated attestation - Sushil Dean Jr., MD - 04/19/2025 10:33 AM EDT I have reviewed this documentation and agree. * Rosario Hill APRN - 04/10/2025 1:24 PM EDT Images from the original note were not included. [facility] Medicine Services PROGRESS NOTE Patient Name: [...] Date/Time Wound Culture - Swab, Leg, Right [[id number]] (Abnormal) (Susceptibility) Collected: 04/07/252106 Lab Status: Final [...] mg Daily 04/05/2025 -- Route: Oral heparin 47758 units/250 mL (100 units/mL) in 0.45 % [...] -- Admin Instructions: Open Order & [facility] Electrolyte Replacement Protocol Algorithm to [...] -- Admin Instructions: Open Order & [facility] Electrolyte Replacement Protocol Algorithm to [...] -- Admin Instructions: Open Order & [facility] Electrolyte Replacement Protocol Algorithm to [...] Dean MD April 21 vs April 22 [facility] [address], [address] [facility], [address] Please schedule at [phone] VONDA Garcia 04/10/25 09:01 EDT Cosigned by Sushil Dean Jr., MD at 04/19/2025 10:33 AM EDT Associated attestation - Sushil Dean Jr., MD - 04/19/2025 10:33 AM EDT I have reviewed this documentation and agree. * Carlton Mead MD - 04/10/2025 7:38 AM EDT Images from the original note were not included. INFECTIOUS DISEASE Progress Note Won Dennis 1980 [id number] Date of Consult: 04/10/2025 Admission Date: 04/04/2025 [...] which prompted him to seek treatment at [facility]. He is known to Dr. Dean. [...] Driven Protocol, , Not Applicable, PRN, Sushil Dena Jr., MD DAPTOmycin (CUBICIN) 800 mg in [...] Jr., MD, 20 mg at 04/09/25906 heparin 26789 units/250 mL (100 units/mL) in 0.45 % [...] vancomycin 2750 mg/500 mL 0.9% NS IVPB ([facility]) Ordering Provider: Mario Crowley, DO [...] Units Date/Time FL C Arm During Surgery [[id number]] Resulted: 04/07/252137 Updated: 04/07/252137 Narrative: This procedure was auto-finalized with no dictation required. MRI Tibia Fibula Right With & Without Contrast [[id number]] Collected: 04/07/25 0938 Updated: 04/07/25 1001 Narrative: [...] Buenrostro 04/07/2025 9:58 AM EDT Workstation ID: [id number] Impression: Recurrent Right BKA stump abscess/cellulitis- this [...] disposition with the pharmacist at [facility] today. I will sign off Outpatient orders: 1. Outpatient intravenous antibiotic therapy: Daptomycin 800 mg IV daily to be supplied by [facility] 2. Home health to perform weekly PICC [...] from the original note were not included. [facility] Medicine Services PROGRESS NOTE Patient Name: [...] Date/Time Wound Culture - Swab, Leg, Right [[id number]] (Abnormal) Collected: 04/07/252106 Lab Status: Preliminary result [...] Support Level Of Support Discussed With: Patient Ajson DO Preeti 04/09/25 * Larisa Hamilton FORMERLY [...] mg Daily 04/05/2025 -- Route: Oral heparin 81530 units/250 mL (100 units/mL) in 0.45 % [...] -- Admin Instructions: Open Order & [facility] Electrolyte Replacement Protocol Algorithm to [...] -- Admin Instructions: Open Order & [facility] Electrolyte Replacement Protocol Algorithm to [...] -- Admin Instructions: Open Order & [facility] Electrolyte Replacement Protocol Algorithm to [...] in 2 weeks for incision check, radiographs [facility] [address], [address] [facility], [address] Please schedule at [phone] VONDA Garcia 04/09/25 09:18 EDT Cosigned by Sushil Dean Jr., MD at 04/19/2025 10:33 AM EDT Associated attestation - Sushil Dean Jr., MD - 04/19/2025 10:33 AM EDT I have reviewed this documentation and agree. * Carlton Mead MD - 04/09/2025 8:25 AM EDT Images from the original note were not included. INFECTIOUS DISEASE Progress Note Won Dennis 1980 [id number] Date of Consult: 04/09/2025 Admission Date: 04/04/2025 [...] which prompted him to seek treatment at [facility]. He is known to Dr. Dean. [...] IRRIGATION; Surgeon: Sushil Dean Jr., MD; Location: [facility] OR; Service: Orthopedics; Laterality: Right; PLACEMENT OF WOUND VAC Right 04/07/2025 Procedure: WOUND VACUUM ASSISTED CLOSURE; Surgeon: Sushil Dean Jr., MD; Location: [facility] OR; Service: Orthopedics; Laterality: [...] MD, 20 mg at 04/08/25 0800 heparin 48724 units/250 mL (100 units/mL) in 0.45 % [...] Units Date/Time FL C Arm During Surgery [[id number]] Resulted: 04/07/252137 Updated: 04/07/252137 Narrative: This procedure was auto-finalized with no dictation required. MRI Tibia Fibula Right With & Without Contrast [[id number]] Collected: 04/07/2538 Updated: 04/07/25 1001 Narrative: MRI [...] Buenrostro 04/07/2025 9:58 AM EDT Workstation ID: [id number] Impression: Recurrent Right BKA stump abscess/cellulitis- this [...] mg IV daily to be supplied by [facility] 2. Home health to perform [...] from the original note were not included. [facility] Medicine Services PROGRESS NOTE Patient Name: [...] Buenrostro 04/07/2025 9:58 AM EDT Workstation ID: [id number] I have personally reviewed the therapy plans: [...] -- Admin Instructions: Open Order & [facility] Electrolyte Replacement Protocol Algorithm to [...] mg Daily 04/05/2025 -- Route: Oral heparin 15450 units/250 mL (100 units/mL) in 0.45 % [...] -- Admin Instructions: Open Order & [facility] Electrolyte Replacement Protocol Algorithm to [...] -- Admin Instructions: Open Order & [facility] Electrolyte Replacement Protocol Algorithm to [...] -- Admin Instructions: Open Order & [facility] Electrolyte Replacement Protocol Algorithm to [...] INFECTIOUS DISEASE Progress Note Won Dennis 1980 [id number] Date of Consult: 04/08/2025 Admission Date: 04/04/2025 [...] which prompted him to seek treatment at [facility]. He is known to Dr. Dean. [...] IRRIGATION; Surgeon: Sushil Dean Jr., MD; Location: [facility] OR; Service: Orthopedics; Laterality: Right; PLACEMENT OF WOUND VAC Right 04/07/2025 Procedure: WOUND VACUUM ASSISTED CLOSURE; Surgeon: Sushil Dean Jr., MD; Location: [facility] OR; Service: Orthopedics; Laterality: [...] mL IVPB, 8 mg/kg (Adjusted), Intravenous, Q24H, Susihl Dean Jr., MD, Last Rate: 100 mL/hr [...] Jr., MD, 20 mg at 04/07/25950 heparin 93793 units/250 mL (100 units/mL) in 0.45 % [...] Units Date/Time FL C Arm During Surgery [[id number]] Resulted: 04/07/252137 Updated: 04/07/252137 Narrative: This procedure was auto-finalized with no dictation required. 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 (Treated by ID in [place] Dr. Harris). Dr. Torres treated him with [...] from the original note were not included. [facility] Medicine Services PROGRESS NOTE Patient Name: [...] Buenrostro 04/07/2025 9:58 AM EDT Workstation ID: [id number] I have personally reviewed the therapy plans: [...] INFECTIOUS DISEASE Progress Note Won Dennis 1980 [id number] Date of Consult: 04/07/2025 Admission Date: 04/04/2025 [...] which prompted him to seek treatment at [facility]. He is known to Dr. Dean. [...] Application, 1 Application, Topical, Q12H, Ayah Valentin, CAREER DEVELOPMENT SPECIALIST, 1 Application at 04/06/252101 DAPTOmycin (CUBICIN) 800 [...] Shepherd MD, 20 mg at 04/06/25899 heparin 28487 units/250 mL (100 units/mL) in 0.45 % [...] With & Without Contrast - In process [[id number]] Resulted: 04/07/25828 Updated: 04/07/25828 This result has not been signed. Information might be incomplete. 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 (Treated by ID in [place] Dr. Harris). Dr. Torres treated him with [...] ceftriaxone 3. Possible surgical intervention per Dr. eDan This visit included the following complex service [...] mg Daily 04/05/2025 -- Route: Oral heparin 17647 units/250 mL (100 units/mL) in 0.45 % [...] -- Admin Instructions: Open Order & [facility] Electrolyte Replacement Protocol Algorithm to [...] -- Admin Instructions: Open Order & [facility] Electrolyte Replacement Protocol Algorithm to [...] from the original note were not included. [facility] Medicine Services PROGRESS NOTE Patient Name: [...] MD 04/04/2025 11:00 PM EDT Workstation ID: [id number] I have personally reviewed the therapy plans: [...] mg Daily 04/05/2025 -- Route: Oral heparin 14812 units/250 mL (100 units/mL) in 0.45 % [...] -- Admin Instructions: Open Order & [facility] Electrolyte Replacement Protocol Algorithm to [...] INFECTIOUS DISEASE follow up. Won Dennis 1980 [id number] Date of Consult: 04/06/2025 Admission Date: 04/04/2025 [...] which prompted him to seek treatment at [facility]. He is known to Dr. Dean. [...] Application, 1 Application, Topical, Q12H, Ayah Valentin, CAREER DEVELOPMENT SPECIALIST, 1 Application at 04/06/25 0859 DAPTOmycin (CUBICIN) [...] 20 mg, 20 mg, Oral, Daily, Leonora Shephred MD, 20 mg at 04/06/25 0900 heparin 60155 units/250 mL (100 units/mL) in 0.45 % [...] Tibia Fibula Right With & Without Contrast [[id number]] Collected: 04/04/252256 Updated: 04/04/252302 Narrative: MRI TIBIA [...] represent a small area of phlegmonous change (zgpfid10 image 10) measuring approximately 1.6 cm which [...] MD 04/04/2025 11:00 PM EDT Workstation ID: [id number] Impression: 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 (Treated by ID in [place] Dr. Harris). Dr. Torres treated him with [...] from the original note were not included. [facility] Medicine Services PROGRESS NOTE Patient Name: [...] MD 04/04/2025 11:00 PM EDT Workstation ID: [id number] I have personally reviewed the therapy plans: [...] from the original note were not included. [facility] Medicine Services HISTORY AND PHYSICAL Patient [...] MD 04/04/2025 11:00 PM EDT Workstation ID: [id number] Assessment & Plan Assessment & Plan Won [...] 4FR PICC placed by Rhoda Bonner RN [facility], tip verified by 3CG see LDA. * Sushil Dean Jr., MD - 04/05/2025 8:07 AM EDTAssociated Order(s): IP CONSULT TO ORTHOPEDIC SURGERY [facility], [facility] [address] [place] [address] Orthopedic Consult Patient: Won Dennis Date of Admission: 04/04/2025 4:10 PM Date of : 1980 Attending Physician: Jason Álvarez DO Consulting Physician: Sushil Dean Jr, MD Chief Complaint: 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 male admitted to [facility] with 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]. He [...] was evaluated in the emergency department in [place], was discharged with instructions for follow-up. He [...] Morning Lactobacillus-Inulin ([facility] Anyone Home) capsule Take 200 mg by mouth Daily. [...] MD 04/04/2025 11:00 PM EDT Workstation ID: [id number] Assessment: Right BKA infection 44-year-old male with [...] DISEASE CONSULT/INITIAL HOSPITAL VISIT Won Dennis 1980 [id number] Date of Consult: 04/05/2025 Admission Date: 04/04/2025 [...] which prompted him to seek treatment at [facility]. He is known to Dr. Dean. [...] Leonora Shepherd MD, 40 mg at 04/04/25 8759 sennosides-docusate (PERICOLACE) 8.6-50 MG per tablet 2 [...] MD, 20 mg at 04/05/25 0916 heparin 20458 units/250 mL (100 units/mL) in 0.45 % [...] Heparin, , Not Applicable, Continuous PRLili, Una Peral, PharmD Pharmacy to dose vancomycin, , Not [...] Tibia Fibula Right With & Without Contrast [[id number]] Collected: 04/04/252256 Updated: 04/04/252302 Narrative: MRI TIBIA [...] represent a small area of phlegmonous change (havfki87 image 10) measuring approximately 1.6 cm which [...] MD 04/04/2025 11:00 PM EDT Workstation ID: [id number] Impression: 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 (Treated by ID in [place] Dr. Harris). Dr. Torres treated him with [...] MD - 04/08/2025 3:51 PM EDT [facility] OPERATIVE REPORT PATIENT NAME: Won Dennis DATE OF : 1980 PREOP DIAGNOSIS: Right Right below-knee amputation infection POSTOP DIAGNOSIS: Same. PROCEDURE: Right Right 26139: Secondary closure below-knee amputation SURGEON: Sushil Dean MD OPERATIVE TEAM: Graphic Design Intern: Susi Grullon RN Scrub Person: Mary Paredes Scrub Person Extra: Hortencia Toribio Other: Katt Gotti RN; Charis Neville RN ANESTHETIST: Anesthesiologist: Ulises Hoffman MD MEDICAL ONCOLOGY PHYSICIAN: Stan Casillas CRNA Student Nurse Carroter: Karol Albert SRNA ANESTHESIA: Choice ESTIMATED BLOOD [...] CULTURE (Canceled) Sushil Dean Jr., MD 04/08/25 2683 Description: RIGHT LEG DEEP WOUND FOR CULTURE [...] Jr., MD - 04/07/2025 9:03 PM EDT [facility] [address] [place] [address] OPERATIVE REPORT PATIENT NAME: Won Dennis DATE OF : 1980 PREOP DIAGNOSIS: Right Right below knee amputation stump infection POSTOP DIAGNOSIS: Same. PROCEDURE: Right Right 64802: Incision and drainage of surgical site infection 63869: Debridement of skin, subcutaneous tissue, muscle 72114: Wound vacuum-assisted closure SURGEON: Sushil Dean MD OPERATIVE TEAM: Graphic Design Intern: Anum Sanchez RN Scrub Person: Hortencia Toribio; Gerald Ivey SPORTS ATTORNEY: Anesthesiologist: Luci Alonso DO ANESTHESIA: General ESTIMATED [...] ago swellling of the area. seen at [facility] yesterday for CT and US, here [...] this chart in the absence of a desolderer. No orders to display RADIOLOGY: [x] Radiologist's [...] 04/11/2025 1:30 PM EDT Continued Stay Note [place] Patient Name: Won Dennis Today's Date: 04/11/2025 Admit Date: 04/04/2025 Plan: Home with outpatient infusion. Discharge Plan Row Name 04/11/25 1155 Plan Plan Home with outpatient infusion. Final Discharge Disposition Code 01 - home or self-care Final Note Patient discharging today. He is discharging home with outpatient infusion at [facility]. He has an appointment with [facility] at 8:00 am tomorrow. They will do PICC line dressing changes. DEBRA has spoke with Dena at [facility] today multiple times to get setup [...] to get IV ABX at home with [facility]; however, Medicaid lapsed on 04/08. DEBRA was unaware until this morning that Medicaid has lapsed. Patient explained that he has Medicare A and B. CM spoke with KELLEE and given themhis Medicare number [id number], she sent it to Admission. DEBRA spoke with Kerri, with [facility], and explained that he had Medicare A and B. However, it will not cover home infusion. It will be $64.00 a day out of packet. Patients can go to the Infusion center at [facility], and it will cover the cost as an outpatient. He will need to go there every day for infusion. They will be able to do the patients' PICC line dressing changes and lab work. CM called [facility] Outpatient infusion center they can accept patient and start him. He is known for their facility. The Facility will need to run it through his insurance first. CM faxed the orders over to [facility] at [phone]. CM will follow up with them tomorrow at [facility] to make sure they received [...] with patient at bedside today. [facility] Patient getting PICC line [...] note were not included. Discharge Planning Assessment [place] Patient Name: Won Dennis Today's Date: 04/07/2025 [...] with family Patient/Family Anticipated Services at Transition social work case managerflooring sales manager Anticipated family or friend will provide Discharge Needs Assessment Equipment Currently Used at Home glucometer;shower chair;pulse ox;bp cuff;prosthesis;crutches Equipment Needed After Discharge none Discharge Plan Row Name 04/07/25 1144 Plan Plan Home Patient/Family in Agreement with Plan yes Plan Comments CM spoke with patient at bedside today. Patient lives with and his 5 kids in [place] [facility]. 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 He has walker, cane, shower chair, and crutches. He requested a wheelchair for home. CM will order wheelchair through [employer]. He is not current with home health services. PCP is Dr. Jordan. Insurance is [facility] Medicaid [place]. Patient discharge plan is home with priavte transport. CM will follow for any discharge needs. Final Discharge Disposition Code 01 - home or self-care Continued Care and Services - Admitted Since 04/04/2025 No active coordination exists. Demographic Summary Row Name 04/07/25 1143 General Information Arrived From hospital Preferred Language Singaporean Functional Status Row Name 04/07/25 1143 Functional [...] Auto Differential (04/11/2025 3:40 AM EDT) [facility] WBC 7.87 3.40 - 10.80 10*3/mm3 04/11/2025 4:02 AM EDT [facility] RBC 4.70 4.14 - 5.80 10*6/mm3 04/11/2025 4:02 AM EDT [facility] Hemoglobin 12.8(L) 13.0 - 17.7 g/dL 04/11/2025 4:02 AM EDT [facility] Hematocrit 40.5 37.5 - 51.0 % 04/11/2025 4:02 AM EDT [facility] MCV 86.2 79.0 - 97.0 fL 04/11/2025 4:02 AM EDT [facility] MCH 27.2 26.6 - 33.0 pg 04/11/2025 4:02 AM EDT [facility] MCHC 31.6 31.5 - 35.7 g/dL 04/11/2025 4:02 AM EDT [facility] RDW 12.9 12.3 - 15.4 % 04/11/2025 4:02 AM EDT [facility] RDW-SD 40.5 37.0 - 54.0 fl 04/11/2025 4:02 AM EDT [facility] MPV 9.2 6.0 - 12.0 fL 04/11/2025 4:02 AM EDT [facility] Platelets 267 140 - 450 10*3/mm3 04/11/2025 4:02 AM [facility] Neutrophil % 59.5 42.7 - 76.0 % 04/11/2025 4:02 AM [facility] Lymphocyte % 26.3 19.6 - 45.3 % 04/11/2025 4:02 AM [facility] Monocyte % 9.3 5.0 - 12.0 % 04/11/2025 4:02 AM [facility] Eosinophil % 4.1 0.3 - 6.2 % 04/11/2025 4:02 AM [facility] Basophil % 0.4 0.0 - 1.5 % 04/11/2025 4:02 AM [facility] Immature Grans % 0.4 0.0 - 0.5 % 04/11/2025 4:02 AM [facility] Neutrophils, Absolute 4.69 1.70 - 7.00 10*3/mm3 04/11/2025 4:02 AM [facility] Lymphocytes, Absolute 2.07 0.70 - 3.10 10*3/mm3 04/11/2025 4:02 AM [facility] Monocytes, Absolute 0.73 0.10 - 0.90 10*3/mm3 04/11/2025 4:02 AM [facility] Eosinophils, Absolute 0.32 0.00 - 0.40 10*3/mm3 04/11/2025 4:02 AM [facility] Basophils, Absolute 0.03 0.00 - 0.20 10*3/mm3 04/11/2025 4:02 AM [facility] Immature Grans, Absolute 0.03 0.00 - 0.05 10*3/mm3 04/11/2025 4:02 AM [facility] nRBC 0.0 0.0 - 0.2 /100 WBC 04/11/2025 4:02 AM [facility] Blood Venipuncture / Unknown 04/11/2025 3:40 AM EDT 04/11/2025 3:59 AM EDT us Sushil Dean Jr., MD LAB BLOOD ORDERABLES Fi nal Result [facility]
[address] [place] [address], * (ABNORMAL) Comprehensive Metabolic Panel (04/11/2025 3:40 AM EDT) Glucose 108(H) 65 - 99 mg/dL 04/11/2025 4:19 AM EDT [facility] BUN 12.5 6.0 - 20.0 mg/dL 04/11/2025 4:19 AM EDT [facility] Creatinine 0.68(L) 0.76 - 1.27 mg/dL 04/11/2025 4:19 AM EDT [facility] Sodium 140 136 - 145 mmol/L 04/11/2025 4:19 AM EDT [facility] Potassium 3.8 3.5 - 5.2 mmol/L 04/11/2025 4:19 AM EDT [facility] Chloride 105 98 - 107 mmol/L 04/11/2025 4:19 AM EDT [facility] CO2 28.2 22.0 - 29.0 mmol/L 04/11/2025 4:19 AM EDT [facility] Calcium 8.2(L) 8.6 - 10.5 mg/dL 04/11/2025 4:19 AM EDT [facility] Total Protein 6.1 6.0 - 8.5 g/dL 04/11/2025 4:19 AM EDT [facility] Albumin 3.1(L) 3.5 - 5.2 g/dL 04/11/2025 4:19 AM EDT [facility] ALT (SGPT) 52(H) 1 - 41 U/L 04/11/2025 4:19 AM EDT [facility] AST (SGOT) 40 1 - 40 U/L 04/11/2025 4:19 AM EDT [facility] Alkaline Phosphatase 99 39 - 117 U/L 04/11/2025 4:19 AM EDT [facility] Total Bilirubin 0.2 0.0 - 1.2 mg/dL 04/11/2025 4:19 AM EDT [facility] Globulin 3.0 gm/dL 04/11/2025 4:19 AM EDT [facility] Comment:Calculated Result A/G Ratio 1.0 g/dL 04/11/2025 4:19 AM EDT [facility] BUN/Creatinine Ratio 18.4 7.0 - 25.0 04/11/2025 4:19 AM EDT [facility] Anion Gap 6.8 5.0 - 15.0 mmol/L 04/11/2025 4:19 AM EDT [facility] eGFR 117.5 >60.0 mL/min/1.7 3 04/11/2025 4:19 AM EDT [facility] Blood Venipuncture / Unknown 04/11/2025 3:40 AM EDT 04/11/2025 3:56 AM EDT [facility] - 04/11/2025 4:19 AM [...] Hill APRN LAB BLOOD ORDERABLES Final Result [facility]
[address] [place] [address], * (ABNORMAL) CBC Auto Differential (04/10/2025 3:46 AM EDT) [facility] WBC 9.60 3.40 - 10.80 10*3/mm3 04/10/2025 3:56 AM EDT [facility] RBC 4.67 4.14 - 5.80 10*6/mm3 04/[facility] Hemoglobin 12.9(L) 13.0 - 17.7 g/dL 04/10/2025 3:56 AM EDT [facility] Hematocrit 40.1 37.5 - 51.0 % 04/10/2025 3:56 [facility] MCV 85.9 79.0 - 97.0 fL 04/10/2025 3:56 [facility] MCH 27.6 26.6 - 33.0 pg 04/10/2025 3:56 AM [facility] MCHC 32.2 31.5 - 35.7 g/dL 04/10/2025 3:56 [facility] RDW 12.9 12.3 - 15.4 % 04/10/2025 3:56 AM [facility] RDW-SD 40.5 37.0 - 54.0 fl 04/10/2025 3:56 AM [facility] MPV 9.5 6.0 - 12.0 fL 04/10/2025 3:56 AM [facility] Platelets 227 140 - 450 10*3/mm3 04/10/2025 3:56 AM EDT [facility] Neutrophil % 59.1 42.7 - 76.0 % 04/10/2025 3:56 [facility] Lymphocyte % 29.0 19.6 - 45.3 % 04/10/2025 3:56 [facility] Monocyte % 8.1 5.0 - 12.0 % 04/10/2025 3:56 [facility] Eosinophil % 3.2 0.3 - 6.2 % 04/10/2025 3:56 AM EDT [facility] Basophil % 0.4 0.0 - 1.5 % 04/10/2025 3:56 AM EDT [facility] Immature Grans % 0.2 0.0 - 0.5 % 04/10/2025 3:56 AM EDT [facility] Neutrophils, Absolute 5.67 1.70 - 7.00 10*3/mm3 04/10/2025 3:56 AM EDT [facility] Lymphocytes, Absolute 2.78 0.70 - 3.10 10*3/mm3 04/10/2025 3:56 AM EDT [facility] Monocytes, Absolute 0.78 0.10 - 0.90 10*3/mm3 04/10/2025 3:56 AM EDT [facility] Eosinophils, Absolute 0.31 0.00 - 0.40 10*3/mm3 04/10/2025 3:56 AM EDT [facility] Basophils, Absolute 0.04 0.00 - 0.20 10*3/mm3 04/10/2025 3:56 AM EDT [facility] Immature Grans, Absolute 0.02 0.00 - 0.05 10*3/mm3 04/10/2025 3:56 AM EDT [facility] nRBC 0.0 0.0 - 0.2 /100 WBC 04/10/2025 3:56 AM EDT [facility] Blood Venipuncture / Unknown 04/10/2025 3:46 AM EDT 04/10/2025 3:53 AM EDT Jason Álvarez DO LAB BLOOD ORDERABLES Final Resul t [facility]
[address] [place] [address], * (ABNORMAL) Basic Metabolic Panel (04/10/2025 3:46 AM EDT) [facility] Glucose 125(H) 65 - 99 mg/dL 04/10/2025 4:20 AM EDT [facility] BUN 15.9 6.0 - 20.0 mg/dL 04/10/2025 4:20 AM T [facility] Creatinine 0.77 0.76 - 1.27 mg/dL 04/10/2025 4:20 AM T [facility] Sodium 137 136 - 145 mmol/L 04/10/2025 4:20 AM [facility] Potassium 3.9 3.5 - 5.2 mmol/L 04/10/2025 4:20 AM EDT [facility] Chloride 102 98 - 107 mmol/L 04/10/2025 4:20 AM EDT [facility] CO2 26.9 22.0 - 29.0 mmol/L 04/10/2025 4:20 AM [facility] Calcium 7.9(L) 8.6 - 10.5 mg/dL 04/10/2025 4:20 AM [facility] BUN/Creatinine Ratio 20.6 7.0 - 25.0 04/10/2025 4:20 AM [facility] Anion Gap 8.1 5.0 - 15.0 mmol/L 04/10/2025 4:20 AM [facility] eGFR 113.2 >60.0 mL/min/1.7 3 04/10/2025 4:20 AM [facility] Blood Venipuncture / Unknown 04/10/2025 3:46 AM EDT 04/10/2025 3:52 AM EDT [facility] - 04/10/2025 4:20 AM [...] DO LAB BLOOD ORDERABLES Final Resul t [facility]
[address] [place] [address], * Heparin Anti-Xa (04/10/2025 3:46 AM EDT) Heparin Anti-Xa (UFH) 0.35 0.30 - 0.70 IU/ml 04/10/2025 4:23 AM EDT [facility] Blood Venipuncture / Unknown 04/10/2025 3:46 AM EDT 04/10/2025 3:53 AM EDT [facility] LAB BLOOD ORDERABLES Final R esult Performing Organization Address City/[facility]/ZIP Co de Phone Number [facility]
[address] [place] [address], * Heparin Anti-Xa (04/09/2025 10:05 AM EDT) Heparin Anti-Xa (UFH) 0.36 0.30 - 0.70 IU/ml 04/09/2025 11:12 AM EDT [facility] Blood Venipuncture / Unknown 04/09/2025 10:05 AM EDT 04/09/2025 10:47 AM EDT [facility] LAB BLOOD ORDERABLES Final R esult [facility]
[address] [place] [address], * (ABNORMAL) CBC Auto Differential (04/09/2025 4:18 AM EDT) WBC 11.00(H) 3.40 - 10.80 10*3/mm3 04/09/2025 4:50 AM [facility] RBC 4.70 4.14 - 5.80 10*6/mm3 04/09/2025 4:50 AM EDT [facility] Hemoglobin 13.0 13.0 - 17.7 g/dL 04/09/2025 4:50 AM EDT [facility] Hematocrit 40.4 37.5 - 51.0 % 04/09/2025 4:50 AM EDT [facility] MCV 86.0 79.0 - 97.0 fL 04/09/2025 4:50 AM EDT [facility] MCH 27.7 26.6 - 33.0 pg 04/09/2025 4:[facility] MCHC 32.2 31.5 - 35.7 g/dL 04/09/2025 4:50 [facility] RDW 12.8 12.3 - 15.4 % 04/09/2025 4:50 [facility] RDW-SD 39.9 37.0 - 54.0 fl 04/09/2025 4:50 AM [facility] MPV 10.0 6.0 - 12.0 fL 04/09/2025 4:50 AM [facility] Platelets 211 140 - 450 10*3/mm3 04/09/2025 4:50 [facility] Neutrophil % 74.8 42.7 - 76.0 % 04/09/2025 4:50 AM EDT [facility] Lymphocyte % 15.4(L) 19.6 - 45.3 % 04/09/2025 4:50 AM EDT [facility] Monocyte % 8.5 5.0 - 12.0 % 04/09/2025 4:50 AM EDT [facility] Eosinophil % 0.6 0.3 - 6.2 % 04/09/2025 4:[facility] Basophil % 0.4 0.0 - 1.5 % 04/09/2025 4:50 AM EDT [facility] Immature Grans % 0.3 0.0 - 0.5 % 04/09/2025 4:50 AM EDT [facility] Neutrophils, Absolute 8.23(H) 1.70 - 7.00 10*3/mm3 04/09/2025 4:50 AM EDT [facility] Lymphocytes, Absolute 1.69 0.70 - 3.10 10*3/mm3 04/09/2025 4:50 AM EDT [facility] Monocytes, Absolute 0.94(H) 0.10 - 0.90 10*3/mm3 04/09/2025 4:50 AM EDT [facility] Eosinophils, Absolute 0.07 0.00 - 0.40 10*3/mm3 04/09/2025 4:50 AM EDT [facility] Basophils, Absolute 0.04 0.00 - 0.20 10*3/mm3 04/09/2025 4:50 AM EDT [facility] Immature Grans, Absolute 0.03 0.00 - 0.05 10*3/mm3 04/09/2025 4:50 AM EDT [facility] nRBC 0.0 0.0 - 0.2 /100 WBC 04/09/2025 4:50 AM EDT [facility] Blood Venipuncture / Unknown 04/09/2025 4:18 AM EDT 04/09/2025 4:31 AM EDT Sushil Dean Jr., MD LAB BLOOD ORDERABLES Fi nal Result [facility]
[address] [place] [address], * Heparin Anti-Xa (04/09/2025 4:18 AM EDT) Heparin Anti-Xa (UFH) 0.41 0.30 - 0.70 IU/ml 04/09/2025 4:53 AM EDT [facility] Blood Venipuncture / Unknown 04/09/2025 4:18 AM EDT 04/09/2025 4:31 AM EDT Una Wheeleroy PharmD LAB BLOOD ORDERABLES Final R esult [facility]
[address] [place] [address], * (ABNORMAL) Basic Metabolic Panel (04/09/2025 4:18 AM EDT) Pathologist [facility] Glucose 147(H) 65 - 99 mg/dL 04/09/2025 5:33 AM EDT [facility] BUN 23.0(H) 6.0 - 20.0 mg/dL 04/09/2025 5:33 AM EDT [facility] Creatinine 1.15 0.76 - 1.27 mg/dL 04/09/2025 5:33 AM EDT [facility] Sodium 135(L) 136 - 145 mmol/L 04/09/2025 5:33 AM EDT [facility] Potassium 4.2 3.5 - 5.2 mmol/L 04/09/2025 5:33 AM EDT [facility] Chloride 100 98 - 107 mmol/L 04/09/2025 5:33 AM EDT [facility] CO2 26.0 22.0 - 29.0 mmol/L 04/09/2025 5:33 AM EDT [facility] Calcium 8.2(L) 8.6 - 10.5 mg/dL 04/09/2025 5:33 AM EDT [facility] BUN/Creatinine Ratio 20.0 7.0 - 25.0 04/09/2025 5:33 AM EDT [facility] Anion Gap 9.0 5.0 - 15.0 mmol/L 04/09/2025 5:33 AM EDT [facility] eGFR 80.5 >60.0 mL/min/1.7 3 04/09/2025 5:33 AM EDT [facility] Blood Venipuncture / Unknown 04/09/2025 4:18 AM EDT 04/09/2025 4:29 AM EDT Narrative [facility] - 04/09/2025 5:33 AM [...] nal Result Performing Organization Address [facility] Co de Phone Number [facility]
[address] [place] [address], * Wound Culture - Swab, Leg, Right (04/08/2025 3:40 PM EDT) Wound Culture No growth at 3 days ALIZA 04/11/2025 10:40 AM EDT [facility] Gram Stain Few (2+) WBCs seen 04/11/2025 10:40 AM EDT [facility] Gram Stain No organisms seen 04/11/2025 10:40 AM EDT [facility] Swab Structure of right lower limb / Unknown 04/08/2025 3:40 PM EDT 04/08/2025 8:05 PM EDT Sushil Dean Jr., MD MICROBIOLOGY - GENERAL ORDERABLES Final Result Performing Organization Address City/[facility]/ZIP Co de Phone Number [facility]
[address] [place] [phone], [facility]
[address] [place] [address], * Anaerobic Culture - Swab, Leg, Right (04/08/2025 3:40 PM EDT) Pathologist [facility] Anaerobic Culture No anaerobes isolated at 5 days ALIZA 04/13/2025 7:24 AM EDT [facility] Swab Structure of right lower limb / Unknown 04/08/2025 3:40 PM EDT 04/08/2025 8:05 PM EDT Sushil Dean Jr., MD MICROBIOLOGY - GENERAL ORDERABLES Final Result Performing Organization Address City/[facility] Co de Phone Number [facility]
[address] [place] [address], [place] [phone] * Scan Slide (04/08/2025 8:41 AM EDT) Pathologist [facility] RBC Morphology Normal Normal 04/08/2025 11:02 AM EDT [facility] WBC Morphology Normal Normal 04/08/2025 11:02 AM EDT [facility] Platelet Estimate Adequate Normal 04/08/2025 11:02 AM EDT [facility] Clumped Platelets Present None Seen 04/08/2025 11:02 AM EDT [facility] Blood Venipuncture / Unknown 04/08/2025 8:41 AM EDT 04/08/2025 9:10 AM EDT Una LundbergD LAB BLOOD ORDERABLES Final R esult Performing Organization Address City/[facility]/ZIP Co de Phone Number [facility]
[address] [place] [address], [place] [phone] * (ABNORMAL) CBC Auto Differential (04/08/2025 8:41 AM EDT) Pathologist [facility] WBC 10.07 3.40 - 10.80 10*3/mm3 04/08/2025 11:02 AM EDT [facility] RBC 5.01 4.14 - 5.80 10*6/mm3 04/08/2025 11:02 AM EDT [facility] Hemoglobin 14.0 13.0 - 17.7 g/dL 04/08/2025 11:02 AM [facility] Hematocrit 42.7 37.5 - 51.0 % 04/08/2025 11:02 AM [facility] MCV 85.2 79.0 - 97.0 fL 04/08/2025 11:02 AM [facility] MCH 27.9 26.6 - 33.0 pg 04/08/2025 11:02 AM [facility] MCHC 32.8 31.5 - 35.7 g/dL 04/08/2025 11:02 AM [facility] RDW 12.6 12.3 - 15.4 % 04/08/2025 11:02 AM [facility] RDW-SD 38.9 37.0 - 54.0 fl 04/08/2025 11:02 AM [facility] MPV 11.0 6.0 - 12.0 fL 04/08/2025 11:02 AM [facility] Platelets 118(L) 140 - 450 10*3/mm3 04/08/2025 11:02 AM [facility] Neutrophil % 85.1(H) 42.7 - 76.0 % 04/08/2025 11:02 AM [facility] Lymphocyte % 9.3(L) 19.6 - 45.3 % 04/08/2025 11:02 AM [facility] Monocyte % 4.6(L) 5.0 - 12.0 % 04/08/2025 11:02 AM [facility] Eosinophil % 0.3 0.3 - 6.2 % 04/08/2025 11:02 AM [facility] Basophil % 0.2 0.0 - 1.5 % 04/08/2025 11:02 AM [facility] Immature Grans % 0.5 0.0 - 0.5 % 04/08/2025 11:02 AM [facility] Neutrophils, Absolute 8.57(H) 1.70 - 7.00 10*3/mm3 04/08/2025 11:02 AM EDT [facility] Lymphocytes, Absolute 0.94 0.70 - 3.10 10*3/mm3 04/08/2025 11:02 AM EDT [facility] Monocytes, Absolute 0.46 0.10 - 0.90 10*3/mm3 04/08/2025 11:02 AM EDT [facility] Eosinophils, Absolute 0.03 0.00 - 0.40 10*3/mm3 04/08/2025 11:02 AM EDT [facility] Basophils, Absolute 0.02 0.00 - 0.20 10*3/mm3 04/08/2025 11:02 AM EDT [facility] Immature Grans, Absolute 0.05 0.00 - 0.05 10*3/mm3 04/08/2025 11:02 AM EDT [facility] nRBC 0.0 0.0 - 0.2 /100 WBC 04/08/2025 11:02 AM EDT [facility] Blood Venipuncture / Unknown 04/08/2025 8:41 AM EDT 04/08/2025 9:10 AM EDT Una Perla PharmD LAB BLOOD ORDERABLES Final R esult [facility]
[address] [place] [address], * (ABNORMAL) Basic Metabolic Panel (04/08/2025 8:41 AM EDT) Glucose 125(H) 65 - 99 mg/dL 04/08/2025 9:51 AM EDT [facility] BUN 13.2 6.0 - 20.0 mg/dL 04/08/2025 9:51 AM EDT [facility] Creatinine 0.69(L) 0.76 - 1.27 mg/dL 04/08/2025 9:51 AM EDT [facility] Sodium 136 136 - 145 mmol/L 04/08/2025 9:51 AM EDT [facility] Potassium 4.6 3.5 - 5.2 mmol/L 04/08/2025 9:51 AM EDT [facility] Chloride 102 98 - 107 mmol/L 04/08/2025 9:51 AM EDT [facility] CO2 23.5 22.0 - 29.0 mmol/L 04/08/2025 9:51 AM EDT [facility] Calcium 8.4(L) 8.6 - 10.5 mg/dL 04/08/2025 9:51 AM EDT [facility] BUN/Creatinine Ratio 19.1 7.0 - 25.0 04/08/2025 9:51 AM EDT [facility] Anion Gap 10.5 5.0 - 15.0 mmol/L 04/08/2025 9:51 AM EDT [facility] eGFR 117.0 >60.0 mL/min/1.7 3 04/08/2025 9:51 AM EDT [facility] Blood Venipuncture / Unknown 04/08/2025 8:41 AM EDT 04/08/2025 9:09 AM EDT [facility] - 04/08/2025 9:51 AM [...] Jr., MD LAB BLOOD ORDERABLES nal Result [facility]
[address] [place] [address], * Heparin Anti-Xa (04/08/2025 8:41 AM EDT) Heparin Anti-Xa (UFH) 0.33 0.30 - 0.70 IU/ml 04/08/2025 9:40 AM EDT [facility] Blood Venipuncture / Unknown 04/08/2025 8:41 AM EDT 04/08/2025 9:10 AM EDT Sushil Dean Jr., MD LAB BLOOD ORDERABLES Fi nal Result [facility]
[address] [place] [address], * FL C Arm During Surgery (04/07/2025 9:32 PM EDT) Narrative SYSTEMGENERATED, DOCUMENTATION - 04/07/2025 9:38 PM EDT This procedure was auto-finalized with no dictation required. Sushil Dean Jr., MD IMG FLUOROSCOPY ORDERAB LES Final Result * Wound Culture - Swab, Leg, Right (04/07/2025 9:14 PM EDT) Wound Culture No growth at 3 days ALIZA 04/11/2025 10:40 AM EDT [facility] Gram Stain Occasional WBCs seen 04/11/2025 10:40 AM EDT [facility] Gram Stain No organisms seen 04/11/2025 10:40 AM EDT [facility] Swab Structure of right lower limb / Unknown Collection / Unknown 04/07/2025 9:14 PM EDT 04/08/2025 4:36 AM EDT Sushil Dean Jr., MD MICROBIOLOGY - GENERAL ORDERABLES Final Result [facility]
[address] [place] [address], [facility]
[address] [place] [address], * Anaerobic Culture - Swab, Leg, Right (04/07/2025 9:14 PM EDT) Anaerobic Culture No anaerobes isolated at 5 days ALIZA 04/13/2025 7:21 AM EDT [facility] Swab Structure of right lower limb / Unknown Collection / Unknown 04/07/2025 9:14 PM EDT 04/08/2025 4:36 AM EDT Sushil Dean Jr., MD MICROBIOLOGY - GENERAL ORDERABLES Final Result Performing Organization Address City/[facility]/ZIP Co de Phone Number [facility]
[address] [place] [address], * Anaerobic Culture - Tissue, Leg (04/07/2025 9:13 PM EDT) Anaerobic Culture No anaerobes isolated at 5 days ALIZA 04/13/2025 7:21 AM EDT [facility] Tissue Lower limb structure / Unknown Collection / Unknown 04/07/2025 9:13 PM EDT 04/08/2025 4:54 AM EDT Jason Álvarez DO MICROBIOLOGY - GENERAL ORDERABLE S Final Result [facility]
[address] [place] [address], * Tissue / Bone Culture - Tissue, Leg, Right (04/07/2025 9:13 PM EDT) Tissue Culture No growth at 3 days ALIZA 04/11/2025 10:36 AM EDT [facility] Gram Stain Rare (1+) WBCs seen 04/11/2025 10:36 AM EDT [facility] Gram Stain No organisms seen 04/11/2025 10:36 AM EDT [facility] Tissue Structure of right lower limb / Unknown 04/07/2025 9:13 PM EDT 04/08/2025 4:54 AM EDT Sushil Dean Jr., MD MICROBIOLOGY - GENERAL ORDERABLES Final Result Performing Organization Address City/[facility]/ZIP Co de Phone Number [facility]
[address] [place] [address], [place] [phone] [facility]
[address] [place] [address], [place] [phone] * (ABNORMAL) Wound Culture - Swab, Leg, Right (04/07/2025 9:07 PM EDT) Wound Culture Light growth (2+) Staphylococcus aureus, MRSA(A) ALIZA 04/10/2025 10:38 AM EDT [facility] Comment: Methicillin resistant Staphylococcus aureus, Patient may be an isolation risk. Gram Stain Few (2+) WBCs seen 04/10/2025 10:38 AM EDT [facility] Gram Stain No organisms seen 10:38 AM EDT [facility] Swab Structure of right [...] MD MICROBIOLOGY - GENERAL ORDERABLES Final Result [facility]
[address] [place] [address], [facility]
[address] [place] [address], * Anaerobic Culture - Swab, Leg, Right (04/07/2025 9:07 PM EDT) Pathologist [facility] Anaerobic Culture No anaerobes isolated at 5 days ALIZA 04/13/2025 7:21 AM EDT [facility] Swab Structure of right lower limb / Unknown Collection / Unknown 04/07/2025 9:07 PM EDT 04/08/2025 4:36 AM EDT Sushil Dean Jr., MD MICROBIOLOGY - GENERAL ORDERABLES Final Result Performing Organization Address [facility] Co de Phone Number [facility]
[address] [place] [address], * Heparin Anti-Xa (04/07/2025 9:10 AM EDT) [facility] Heparin Anti-Xa ([facility]) 0.30 0.30 - 0.70 IU/ml 04/07/2025 10:12 AM EDT [facility] Blood Venipuncture / Unknown 04/07/2025 9:10 AM EDT 04/07/2025 9:38 AM EDT Una LundbergD LAB BLOOD ORDERABLES Final R esult Performing Organization Address City/[facility]/ZIP Co de Phone Number [facility]
[address] [place] [address], * (ABNORMAL) CBC Auto Differential (04/07/2025 9:10 AM EDT) Pathologist [facility] WBC 8.63 3.40 - 10.80 10*3/mm3 04/07/2025 9:50 AM EDT [facility] RBC 5.23 4.14 - 5.80 10*6/mm3 04/07[facility] Hemoglobin 14.7 13.0 - 17.7 g/dL 04/07/2025 9:[facility] Hematocrit 44.8 37.5 - 51.0 % 04/07/2025 9:50 AM [facility] MCV 85.7 79.0 - 97.0 fL 04/07/2025 9:50 AM EDT [facility] MCH 28.1 26.6 - 33.0 pg 04/07/2025 9:50 AM [facility] MCHC 32.8 31.5 - 35.7 g/dL 04/07/2025 9:50 AM [facility] RDW 12.8 12.3 - 15.4 % 04/07/2025 9:50 AM [facility] RDW-SD 39.9 37.0 - 54.0 fl 04/07/2025 9:50 AM [facility] MPV 10.8 6.0 - 12.0 fL 04/07/2025 9:50 AM [facility] Platelets 149 140 - 450 10*3/mm3 04/07/2025 9:50 AM [facility] Neutrophil % 66.7 42.7 - 76.0 % 04/07/2025 9:50 AM [facility] Lymphocyte % 20.5 19.6 - 45.3 % 04/07/2025 9:50 AM EDT [facility] Monocyte % 9.8 5.0 - 12.0 % 04/07/2025 9:50 AM [facility] Eosinophil % 2.1 0.3 - 6.2 % 04/07/2025 9:50 AM [facility] Basophil % 0.3 0.0 - 1.5 % 04/07/2025 9:50 AM [facility] Immature Grans % 0.6(H) 0.0 - 0.5 % 04/07/2025 9:50 AM EDT [facility] Neutrophils, Absolute 5.75 1.70 - 7.00 10*3/mm3 04/07/2025 9:50 AM EDT [facility] Lymphocytes, Absolute 1.77 0.70 - 3.10 10*3/mm3 04/07/2025 9:50 AM EDT [facility] Monocytes, Absolute 0.85 0.10 - 0.90 10*3/mm3 04/07/2025 9:50 AM EDT [facility] Eosinophils, Absolute 0.18 0.00 - 0.40 10*3/mm3 04/07/2025 9:50 AM EDT [facility] Basophils, Absolute 0.03 0.00 - 0.20 10*3/mm3 04/07/2025 9:50 AM EDT [facility] Immature Grans, Absolute 0.05 0.00 - 0.05 10*3/mm3 04/07/2025 9:50 AM EDT [facility] nRBC 0.0 0.0 - 0.2 /100 WBC 04/07/2025 9:50 AM EDT [facility] Blood Venipuncture / Unknown 04/07/2025 9:10 AM EDT 04/07/2025 9:38 AM EDT us Jason Álvarez DO LAB BLOOD ORDERABLES Final Resul t [facility]
[address] [place] [address], * (ABNORMAL) Basic Metabolic Panel (04/07/2025 9:10 AM EDT) Glucose 112(H) 65 - 99 mg/dL 04/07/2025 10:19 AM EDT [facility] BUN 13.1 6.0 - 20.0 mg/dL 04/07/2025 10:19 AM EDT [facility] Creatinine 0.77 0.76 - 1.27 mg/dL 04/07/2025 10:19 AM EDT [facility] Sodium 139 136 - 145 mmol/L 04/07/2025 10:19 AM EDT [facility] Potassium 4.2 3.5 - 5.2 mmol/L 04/07/2025 10:19 AM EDT [facility] Comment:Specimen hemolyzed. Result may be falsely elevated. Chloride 105 98 - 107 mmol/L 04/07/2025 10:19 AM EDT [facility] CO2 24.8 22.0 - 29.0 mmol/L 04/07/2025 10:19 AM EDT [facility] Calcium 8.6 8.6 - 10.5 mg/dL 04/07/2025 10:19 AM T [facility] BUN/Creatinine Ratio 17.0 7.0 - 25.0 04/07/2025 10:19 AM EDT [facility] Anion Gap 9.2 5.0 - 15.0 mmol/L 04/07/2025 10:19 AM T [facility] eGFR 113.2 >60.0 mL/min/1.7 3 04/07/2025 10:19 AM T [facility] Blood Venipuncture / Unknown 04/07/2025 9:10 AM EDT 04/07/2025 9:38 AM EDT Narrative [facility] - 04/07/2025 10:19 AM [...] DO LAB BLOOD ORDERABLES Final Resul t [facility]
[address] [place] [address], * MRI Tibia Fibula Right With & [...] [place] 04/07/2025 9:58 AM EDT Workstation ID: [id number] Narrative 04/07/2025 9:58 AM EDT MRI TIBIA [...] [place] 04/07/2025 9:58 AM EDT Workstation ID: [id number] us Sushil Dean Jr., MD [facility] [place] MRI ORDERABLES Mary Beth l Result * Heparin Anti-Xa (04/07/2025 1:42 AM EDT) Heparin Anti-Xa (UFH) 0.38 0.30 - 0.70 IU/ml 04/07/2025 2:14 AM EDT [facility] Blood Venipuncture / Unknown 04/07/2025 1:42 AM EDT 04/07/2025 1:54 AM EDT Chelsie Navarretesapna [facility] LAB BLOOD ORDERABLES Final R esult Performing Organization Address City/[facility]/ZIP Co de Phone Number [facility]
[address] [place] [address], * Heparin Anti-Xa (04/06/2025 7:16 PM EDT) Pathologist [facility] Heparin Anti-Xa (UFH) 0.33 0.30 - 0.70 IU/ml 04/06/2025 7:50 PM EDT [facility] Blood Venipuncture / Unknown 04/06/2025 7:16 PM EDT 04/06/2025 7:35 PM EDT Cherri Beatty [facility] LAB BLOOD ORDERABLES Final Res ult Performing Organization Address City/[facility] Co de Phone Number [facility]
[address] [place] [address], * Potassium (04/06/2025 7:16 PM EDT) Pathologist [facility] Potassium 4.0 3.5 - 5.2 mmol/L 04/06/2025 7:53 PM EDT [facility] Blood Venipuncture / Unknown 04/06/2025 7:16 PM EDT 04/06/2025 7:35 PM EDT Jason Álvarez DO LAB BLOOD ORDERABLES Final Resul t Performing Organization Address City/[facility]/ZIP Co de Phone Number [facility]
[address] [place] [address], * (ABNORMAL) Heparin Anti-Xa (04/06/2025 12:36 PM EDT) Heparin Anti-Xa (UFH) 0.24(L) 0.30 - 0.70 IU/ml 04/06/2025 1:23 PM EDT [facility] Blood Venipuncture / Unknown 04/06/2025 12:36 PM EDT 04/06/2025 1:07 PM EDT Una LundbergD LAB BLOOD ORDERABLES Final R esult [facility]
[address] [place] [address], * (ABNORMAL) Heparin Anti-Xa (04/06/2025 3:42 AM EDT) [facility] Heparin Anti-Xa (UFH) 0.25(L) 0.30 - 0.70 IU/ml 04/06/2025 5:30 AM EDT [facility] Blood Venipuncture / Unknown 04/06/2025 3:42 AM EDT 04/06/2025 4:59 AM EDT Chelsie Turpin [facility] LAB BLOOD ORDERABLES Final R esult [facility]
[address] [place] [address], * (ABNORMAL) Basic Metabolic Panel (04/06/2025 3:42 AM EDT) [facility] Glucose 94 65 - 99 mg/dL 04/06/2025 5:59 AM EDT [facility] BUN 12.8 6.0 - 20.0 mg/dL 04/06/2025 5:59 AM EDT [facility] Creatinine 0.80 0.76 - 1.27 mg/dL 04/06/2025 5:59 AM EDT [facility] Sodium 138 136 - 145 mmol/L 04/06/2025 5:59 AM EDT [facility] Potassium 3.6 3.5 - 5.2 mmol/L 04/06/2025 5:59 AM EDT [facility] Chloride 103 98 - 107 mmol/L 04/06/2025 5:59 AM EDT [facility] CO2 24.2 22.0 - 29.0 mmol/L 04/06/2025 5:59 AM EDT [facility] Calcium 8.0(L) 8.6 - 10.5 mg/dL 04/06/2025 5:59 AM EDT [facility] BUN/Creatinine Ratio 16.0 7.0 - 25.0 04/06/2025 5:59 AM EDT [facility] Anion Gap 10.8 5.0 - 15.0 mmol/L 04/06/2025 5:59 AM EDT [facility] eGFR 111.9 >60.0 mL/min/1.7 3 04/06/2025 5:59 AM EDT [facility] Blood Venipuncture / Unknown 04/06/2025 3:42 AM EDT 04/06/2025 5:20 AM EDT Narrative [facility] - 04/06/2025 5:59 AM [...] DO LAB BLOOD ORDERABLES Final Resul t [facility]
[address] [place] [address], * (ABNORMAL) CBC Auto Differential (04/06/2025 3:41 AM EDT) WBC 10.86(H) 3.40 - 10.80 10*3/mm3 04/06/2025 5:04 AM EDT [facility] RBC 5.08 4.14 - 5.80 10*6/mm3 04/06/2025 5:04 AM EDT [facility] Hemoglobin 13.9 13.0 - 17.7 g/dL 04/06/2025 5:04 AM EDT [facility] Hematocrit 43.7 37.5 - 51.0 % 04/06/2025 5:04 AM EDT [facility] MCV 86.0 79.0 - 97.0 fL 04/06/2025 5:04 AM EDT [facility] MCH 27.4 26.6 - 33.0 pg 04/06/2025 5:04 AM EDT [facility] MCHC 31.8 31.5 - 35.7 g/dL 04/06/2025 5:04 AM EDT [facility] RDW 12.8 12.3 - 15.4 % 04/06/2025 5:04 AM EDT [facility] RDW-SD 40.0 37.0 - 54.0 fl 04/06/2025 5:04 AM EDT [facility] MPV 11.7 6.0 - 12.0 fL 04/06/2025 5:04 AM EDT [facility] Platelets 115(L) 140 - 450 10*3/mm3 04/06/2025 5:04 AM EDT [facility] Neutrophil % 65.3 42.7 - 76.0 % 04/06/2025 5:04 AM EDT [facility] Lymphocyte % 20.5 19.6 - 45.3 % 04/06/2025 5:04 AM EDT [facility] Monocyte % 11.8 5.0 - 12.0 % 04/06/2025 5:04 AM EDT [facility] Eosinophil % 1.8 0.3 - 6.2 % 04/06/2025 5:04 AM EDT [facility] Basophil % 0.3 0.0 - 1.5 % 04/06/2025 5:04 AM EDT [facility] Immature Grans % 0.3 0.0 - 0.5 % 04/06/2025 5:04 AM EDT [facility] Neutrophils, Absolute 7.09(H) 1.70 - 7.00 10*3/mm3 04/06/2025 5:04 AM EDT [facility] Lymphocytes, Absolute 2.23 0.70 - 3.10 10*3/mm3 04/06/2025 5:04 AM EDT [facility] Monocytes, Absolute 1.28(H) 0.10 - 0.90 10*3/mm3 04/06/2025 5:04 AM EDT [facility] Eosinophils, Absolute 0.20 0.00 - 0.40 10*3/mm3 04/06/2025 5:04 AM EDT [facility] Basophils, Absolute 0.03 0.00 - 0.20 10*3/mm3 04/06/2025 5:04 AM EDT [facility] Immature Grans, Absolute 0.03 0.00 - 0.05 10*3/mm3 04/06/2025 5:04 AM EDT [facility] nRBC 0.0 0.0 - 0.2 /100 WBC 04/06/2025 5:04 AM EDT [facility] Blood Venipuncture / Unknown 04/06/2025 3:41 AM EDT 04/06/2025 4:58 AM EDT us Jason Álvarez DO LAB BLOOD ORDERABLES Final Resul t [facility]
[address] [place] [address], * Heparin Anti-Xa (04/05/2025 8:43 PM EDT) Heparin Anti-Xa (UFH) 0.38 0.30 - 0.70 IU/ml 04/05/2025 9:09 PM EDT [facility] Blood Venipuncture / Unknown 04/05/2025 8:43 PM EDT 04/05/2025 8:55 PM EDT Cherri Beatty [facility] LAB BLOOD ORDERABLES Final Res ult Performing Organization Address [facility] Co de Phone Number [facility]
[address] [place] [address], * CK (04/05/2025 12:15 PM EDT) Creatine Kinase 140 20 - 200 U/L 04/05/2025 1:31 PM EDT [facility] Blood Venipuncture / Unknown 04/05/2025 12:15 PM EDT 04/05/2025 1:03 PM EDT Carlton Mead MD LAB BLOOD ORDERABLES Final R esult Performing Organization Address [facility] Co de Phone Number [facility]
[address] [place] [address], [place] [phone] * (ABNORMAL) Heparin Anti-Xa (04/05/2025 12:15 PM EDT) Heparin Anti-Xa (UFH) 0.17(L) 0.30 - 0.70 IU/ml 04/05/2025 1:21 PM EDT [facility] Blood Venipuncture / Unknown 04/05/2025 12:15 PM EDT 04/05/2025 1:04 PM EDT Una LundbergD LAB BLOOD ORDERABLES Final R esult Performing Organization Address City/[facility]/ZIP Co de Phone Number [facility]
[address] [place] [address], * (ABNORMAL) aPTT (04/05/2025 3:54 AM EDT) [facility] PTT 35.3(L) 60.0 - 90.0 seconds 04/05/2025 4:31 AM EDT [facility] Blood Venipuncture / Unknown 04/05/2025 3:54 AM EDT 04/05/2025 4:15 AM EDT Narrative [facility] - 04/05/2025 4:31 AM EDT PTT = The equivalent PTT values for the therapeutic range of heparin levels at 0.3 to 0.5 U/ml are 60 to 70 seconds. Una Perla EverZeroD LAB BLOOD ORDERABLES Final R esult Performing Organization Address [facility] Co de Phone Number [facility]
[address] [place] [address], * Heparin Anti-Xa (04/05/2025 3:54 AM EDT) [facility] Heparin Anti-Xa (UFH) 0.30 0.30 - 0.70 IU/ml 04/05/2025 4:32 AM EDT [facility] Blood Venipuncture / Unknown 04/05/2025 3:54 AM EDT 04/05/2025 4:15 AM EDT MessageGearsD LAB BLOOD ORDERABLES Final R esult Performing Organization Address City/[facility] Co de Phone Number [facility]
[address] [place] [address], * (ABNORMAL) CBC Auto Differential (04/05/2025 3:54 AM EDT) [facility] WBC 11.18(H) 3.40 - 10.80 10*3/mm3 04/05/2025 4:20 AM EDT [facility] RBC 5.00 4.14 - 5.80 10*6/mm3 04/05/2025 4:20 AM EDT [facility] Hemoglobin 13.9 13.0 - 17.7 g/dL 04/05/2025 4:20 AM EDT [facility] Hematocrit 42.4 37.5 - 51.0 % 04/05/2025 4:20 AM EDT [facility] MCV 84.8 79.0 - 97.0 fL 04/05/2025 4:20 AM EDT [facility] MCH 27.8 26.6 - 33.0 pg 04/05/2025 4:[facility] MCHC 32.8 31.5 - 35.7 g/dL 04/05/2025 4:20 AM [facility] RDW 12.9 12.3 - 15.4 % 04/05/2025 4:20 AM [facility] RDW-SD 39.7 37.0 - 54.0 fl 04/05/2025 4:20 AM [facility] MPV 10.2 6.0 - 12.0 fL 04/05/2025 4:20 AM [facility] Platelets 160 140 - 450 10*3/mm3 04/05/2025 4:20 AM [facility] Neutrophil % 73.5 42.7 - 76.0 % 04/05/2025 4:20 AM [facility] Lymphocyte % 14.0(L) 19.6 - 45.3 % 04/05/2025 4:20 AM EDT [facility] Monocyte % 11.0 5.0 - 12.0 % 04/05/2025 4:20 AM [facility] Eosinophil % 0.8 0.3 - 6.2 % 04/05/2025 4:20 AM [facility] Basophil % 0.3 0.0 - 1.5 % 04/05/2025 4:20 AM EDT [facility] Immature Grans % 0.4 0.0 - 0.5 % 04/05/2025 4:20 AM EDT [facility] Neutrophils, Absolute 8.23(H) 1.70 - 7.00 10*3/mm3 04/05/2025 4:20 AM EDT [facility] Lymphocytes, Absolute 1.56 0.70 - 3.10 10*3/mm3 04/05/2025 4:20 AM EDT [facility] Monocytes, Absolute 1.23(H) 0.10 - 0.90 10*3/mm3 04/05/2025 4:20 AM EDT [facility] Eosinophils, Absolute 0.09 0.00 - 0.40 10*3/mm3 04/05/2025 4:20 AM EDT [facility] Basophils, Absolute 0.03 0.00 - 0.20 10*3/mm3 04/05/2025 4:20 AM EDT [facility] Immature Grans, Absolute 0.04 0.00 - 0.05 10*3/mm3 04/05/2025 4:20 AM EDT [facility] nRBC 0.0 0.0 - 0.2 /100 WBC 04/05/2025 4:20 AM EDT [facility] Blood Venipuncture / Unknown 04/05/2025 3:54 AM EDT 04/05/2025 4:16 AM EDT Una Perla PharmD LAB BLOOD ORDERABLES Final R esult [facility]
[address] [place] [address], * (ABNORMAL) Basic Metabolic Panel (04/05/2025 3:54 AM EDT) [facility] Signature Glucose 152(H) 65 - 99 mg/dL 04/05/2025 4:40 AM EDT [facility] BUN 17.3 6.0 - 20.0 mg/dL 04/05/2025 4:40 AM T [facility] Creatinine 0.92 0.76 - 1.27 mg/dL 04/05/2025 4:40 AM EDT [facility] Sodium 136 136 - 145 mmol/L 04/05/2025 4:40 AM EDT [facility] Potassium 3.9 3.5 - 5.2 mmol/L 04/05/2025 4:40 AM EDT [facility] Chloride 103 98 - 107 mmol/L 04/05/2025 4:40 AM EDT [facility] CO2 24.0 22.0 - 29.0 mmol/L 04/05/2025 4:40 AM T [facility] Calcium 7.8(L) 8.6 - 10.5 mg/dL 04/05/2025 4:40 AM [facility] BUN/Creatinine Ratio 18.8 7.0 - 25.0 04/05/2025 4:40 AM T [facility] Anion Gap 9.0 5.0 - 15.0 mmol/L 04/05/2025 4:40 AM [facility] eGFR 105.2 >60.0 mL/min/1.7 3 04/05/2025 4:40 AM [facility] Blood Venipuncture / Unknown 04/05/2025 3:54 AM EDT 04/05/2025 4:15 AM EDT [facility] - 04/05/2025 4:40 AM [...] Re sult Performing Organization Address [facility] Co de Phone Number [facility]
[address] [place] [address], * (ABNORMAL) aPTT (04/05/2025 12:18 AM EDT) PTT 33.6(L) 60.0 - 90.0 seconds 04/05/2025 12:53 AM EDT [facility] Blood Venipuncture / Unknown 04/05/2025 12:18 AM EDT 04/05/2025 12:37 AM EDT Narrative [facility] - 04/05/2025 12:53 AM EDT PTT = The equivalent PTT values for the therapeutic range of heparin levels at 0.3 to 0.5 U/ml are 60 to 70 seconds. Una Perla PharmD LAB BLOOD ORDERABLES Final R esult Performing Organization Address [facility] Co de Phone Number [facility]
[address] [place] [address], [place] [phone] * (ABNORMAL) Protime-INR (04/05/2025 12:18 AM EDT) Protime 15.9(H) 12.2 - 15.3 Seconds 04/05/2025 12:53 AM EDT [facility] INR 1.19(H) 0.89 - 1.12 04/05/2025 12:53 AM EDT [facility] Blood Venipuncture / Unknown 04/05/2025 12:18 AM EDT 04/05/2025 12:37 AM EDT Una Perla PharmD LAB BLOOD ORDERABLES Final R esult Performing Organization Address City/[facility] Co de Phone Number [facility]
[address] [place] [address], [place] [phone] * Heparin Anti-Xa (04/05/2025 12:18 AM EDT) Heparin Anti-Xa (UFH) 0.39 0.30 - 0.70 IU/ml 04/05/2025 12:54 AM EDT [facility] Blood Venipuncture / Unknown 04/05/2025 12:18 AM EDT 04/05/2025 12:37 AM EDT Una Perla PharmD LAB BLOOD ORDERABLES Final R esult [facility]
[address] [place] [address], * MRI Tibia Fibula Right With & [...] MD 04/04/2025 11:00 PM EDT Workstation ID: [id number] Narrative 04/04/2025 11:00 PM EDT MRI TIBIA [...] MD 04/04/2025 11:00 PM EDT Workstation ID: [id number] us Leonora Shepherd MD IMG MRI ORDERABLES Final Resu lt * POC Creatinine (04/04/2025 2:49 PM EDT) [facility] Creatinine 1.10 0.60 - 1.30 mg/dL 04/07/2025 7:14 PM EDT [facility] Comment:Serial Number: [id number] 7Operator: [id number] Venous Blood 04/04/2025 2:49 PM EDT 04/07/2025 7:14 PM EDT Jason Álvarez DO POINT OF CARE TEST ORDERABLES Fi nal Result [facility]
[address] [place] [address], * (ABNORMAL) CBC Auto Differential (04/04/2025 2:47 PM EDT) [facility] WBC 12.72(H) 3.40 - 10.80 10*3/mm3 04/04/2025 2:56 PM EDT [facility] RBC 5.64 4.14 - 5.80 10*6/mm3 04/04/2025 2:56 PM EDT [facility] Hemoglobin 15.3 13.0 - 17.7 g/dL 04/04/2025 2:56 PM EDT [facility] Hematocrit 47.9 37.5 - 51.0 % 04/04/2025 2:56 PM EDT [facility] MCV 84.9 79.0 - 97.0 fL 04/04/2025 2:56 PM EDT [facility] MCH 27.1 26.6 - 33.0 pg 04/04/2025 2:56 PM EDT [facility] MCHC 31.9 31.5 - 35.7 g/dL 04/04/2025 2:56 PM EDT [facility] RDW 13.1 12.3 - 15.4 % 04/04/2025 2:[facility] RDW-SD 40.3 37.0 - 54.0 fl 04/04/2025 2:56 PM EDT [facility] MPV 9.4 6.0 - 12.0 fL 04/04/2025 2:56 PM EDT [facility] Platelets 232 140 - 450 10*3/mm3 04/04/2025 2:56 PM EDT [facility] Neutrophil % 74.9 42.7 - 76.0 % 04/04/2025 2:56 PM EDT [facility] Lymphocyte % 13.1(L) 19.6 - 45.3 % 04/04/2025 2:56 [facility] Monocyte % 11.2 5.0 - 12.0 % 04/04/2025 2:56 [facility] Eosinophil % 0.4 0.3 - 6.2 % 04/04/2025 2:56 PM EDT [facility] Basophil % 0.2 0.0 - 1.5 % 04/04/2025 2:56 [facility] Immature Grans % 0.2 0.0 - 0.5 % 04/04/2025 2:56 PM [facility] Neutrophils, Absolute 9.52(H) 1.70 - 7.00 10*3/mm3 04/04/2025 2:56 PM [facility] Lymphocytes, Absolute 1.66 0.70 - 3.10 10*3/mm3 04/04/2025 2:56 PM EDT [facility] Monocytes, Absolute 1.43(H) 0.10 - 0.90 10*3/mm3 04/04/2025 2:56 PM EDT [facility] Eosinophils, Absolute 0.05 0.00 - 0.40 10*3/mm3 04/04/2025 2:56 [facility] Basophils, Absolute 0.03 0.00 - 0.20 10*3/mm3 04/04/2025 2:56 PM EDT [facility] Immature Grans, Absolute 0.03 0.00 - 0.05 10*3/mm3 04/04/2025 2:56 PM EDT [facility] nRBC 0.0 0.0 - 0.2 /100 WBC 04/04/2025 2:56 PM EDT [facility] Blood Venipuncture / Unknown 04/04/2025 2:47 PM EDT 04/04/2025 2:52 PM EDT Mario Ortiz GhanshyamProcura LAB BLOOD ORDERABLES Fin al Result Performing Organization Address City/[facility]/ZIP Co de Phone Number [facility]
[address] [place] [address], * (ABNORMAL) C-reactive Protein (04/04/2025 2:47 PM EDT) C-Reactive Protein 8.57(H) 0.00 - 0.50 mg/dL 04/04/2025 3:26 PM EDT [facility] Blood Venipuncture / Unknown 04/04/2025 2:47 PM EDT 04/04/2025 2:52 PM EDT Mario Ortiz GhanshyamPro[facility] LAB BLOOD ORDERABLES Fin al Result Performing Organization Address [facility] [place]/[facility] de Phone Number [facility]
[address] [place] [address], * (ABNORMAL) Sedimentation Rate (04/04/2025 2:47 PM EDT) Sed Rate 51(H) 0 - 15 mm/hr 04/04/2025 3:06 PM EDT [facility] Blood Venipuncture / Unknown 04/04/2025 2:47 PM EDT 04/04/2025 2:52 PM EDT [facility] Ortiz [facility] BLOOD ORDER[facility]LES Fin al Result Performing Organization Address City/[facility]/ZIP Co de Phone Number [facility]
[address] [place] [address], * Comprehensive Metabolic Panel (04/04/2025 2:47 PM EDT) [facility] Glucose 90 65 - 99 mg/dL 04/04/2025 3:26 PM EDT [facility] BUN 18.3 6.0 - 20.0 mg/dL 04/04/2025 3:26 PM EDT [facility] Creatinine 0.94 0.76 - 1.27 mg/dL 04/04/2025 3:26 PM EDT [facility] Sodium 136 136 - 145 mmol/L 04/04/2025 3:26 PM EDT [facility] Potassium 3.8 3.5 - 5.2 mmol/L 04/04/2025 3:26 PM EDT [facility] Chloride 100 98 - 107 mmol/L 04/04/2025 3:26 PM EDT [facility] CO2 25.3 22.0 - 29.0 mmol/L 04/04/2025 3:26 PM EDT [facility] Calcium 8.6 8.6 - 10.5 mg/dL 04/04/2025 3:26 PM EDT [facility] Total Protein 7.3 6.0 - 8.5 g/dL 04/04/2025 3:26 PM EDT [facility] Albumin 4.1 3.5 - 5.2 g/dL 04/04/2025 3:26 PM EDT [facility] ALT (SGPT) 26 1 - 41 U/L 04/04/2025 3:26 PM EDT [facility] AST (SGOT) 25 1 - 40 U/L 04/04/2025 3:26 PM EDT [facility] Alkaline Phosphatase 106 39 - 117 U/L 04/04/2025 3:26 PM EDT [facility] Total Bilirubin 1.0 0.0 - 1.2 mg/dL 04/04/2025 3:26 PM EDT [facility] Globulin 3.2 gm/dL 04/04/2025 3:26 PM EDT [facility] Comment:Calculated Result A/G Ratio 1.3 g/dL 04/04/2025 3:26 PM EDT [facility] BUN/Creatinine Ratio 19.5 7.0 - 25.0 04/04/2025 3:26 PM EDT [facility] Anion Gap 10.7 5.0 - 15.0 mmol/L 04/04/2025 3:26 PM EDT [facility] eGFR 102.5 >60.0 mL/min/1.7 3 04/04/2025 3:26 PM EDT [facility] Blood Venipuncture / Unknown 04/04/2025 2:47 PM EDT 04/04/2025 2:52 PM EDT Narrative [facility] - 04/04/2025 3:26 PM [...] DO LAB BLOOD ORDERABLES Fin al Result [facility]
[address] [place] [address], documented in this encounter Visit Diagnoses Diagnosis [...] 04/05/2025 3:33 PM EDT 2,000 Units heparin 37411 units/250 mL (100 units/mL) in 0.45 % [...] BPA Driven Protocol Open Order & [facility] Electrolyte Replacement Protocol Algorithm to [...] BPA Driven Protocol Open Order & [facility] Electrolyte Replacement Protocol Algorithm to [...] disposal. [id number] (Given - Provider: Amber Salazar, [employer])194 (Given - Provider: Anahy Marcelino, [employer])[id number] (Canceled Entry - Provider: Anahy Marcelino RRT [...] Continuous Medication Order 04/09/2025 04/10/2025 04/11/2025 heparin [id number] units/250 mL (100 units/mL) in 0.45 % NaCl infusion (CANCELED) 18 Units/kg/hr 134 kg (24.12 mL/hr, rounded to 24.1 mL/hr), Intravenous, Titrated, Starting on 04/05/25 at 0045, Pharmacy dosing - VTE (PE/DVT) - Boluses (No initial bolus), Indications: DVT/PE (active thrombosis) 0614 (New Bag - Provider: Bob Rosenberg RN)0712 (Handoff - Provider: Bob Rosenberg RN)1633 (New Bag - Provider: Shirlye Hart RN) 0313 (New Bag - Provider: [...] BPA Driven Protocol Open Order & [facility] Electrolyte Replacement Protocol Algorithm to [...] BPA Driven Protocol Open Order & [facility] Electrolyte Replacement Protocol Algorithm to [...] documented as of this encounter Care Teams Research And Development Scientist Relationship Specialty Start Date End Date Provider, [place] [address] PCP - General 05/09/23 documented as of this encounter
--- OUTSIDE RECORDS SUMMARY | 2025-04-07 18:00 | XMS_ITS | Encounter Summary ---
[facility] Address [address] [place] [address] Care Team Providers Care Pier Hand Name Role Phone Provider, No Known Primary Care Provider Unavail able Reason for Visit * Reason Comments Leg Swelling * Auth/Cert Specialty Diagnoses / Procedures Referred By Contac t Referred To Contact Diagnoses Right BKA infection Referral ID Status Reason Start Date Expiration Date Visits Re quested Visits Authorized [id number] 1 1 Encounter Details Date Type Department Care Team (Late st Contact Info) Description 04/07/2025 6:00 PM EDT - 04/07/2025 6:52 PM EDT Surgery [facility] OR [address] [place] [address] Sushil Dean Jr., MD [address] [place] [address] [address] [id number] LEG DEBRIDEMENT, IRRIGATION Social History Tobacco Use Types Packs/Day Years Used Date Smoking Tobacco: Never Smokeless Tobacco: Never Tobacco Cessation:Counseling Given: Not Answered Alcohol Use Standard Drinks/Week Comments Not Currently 0 (1 standard drink = 0.6 oz pur e alcohol) [facility] Utilities Answer Date Recorded In the past 12 months has [employer] electric, gas, oil, or water company threatened [...] or training? Not on file Preferred Language [place] Citizen 04/07/2025 Sex and Gender Information Value Date [...] 2:25 PM EDT Cherri Grimm RN * [place] Suicide Severity Rating Scale (Screener/Recent Self-Report) Question [...] from the original note were not included. [facility] Medicine Services DISCHARGE SUMMARY Patient Name: [...] Date/Time Wound Culture - Swab, Leg, Right [[id number]] (Abnormal) (Susceptibility) Collected: 04/07/252106 Lab Status: Final [...] Units Date/Time FL C Arm During Surgery [[id number]] Resulted: 04/07/252137 Updated: 04/07/252137 Narrative: This procedure was auto-finalized with no dictation required. MRI Tibia Fibula Right With & Without Contrast [[id number]] Collected: 04/07/25 0938 Updated: 04/07/25 1001 Narrative: [...] Buenrostro 04/07/2025 9:58 AM EDT Workstation ID: [id number] MRI Tibia Fibula Right With & Without Contrast [[id number]] Collected: 04/04/252256 Updated: 04/04/252302 Narrative: MRI TIBIA [...] represent a small area of phlegmonous change (qqiqst15 image 10) measuring approximately 1.6 cm which [...] MD 04/04/2025 11:00 PM EDT Workstation ID: [id number] Pending Labs Order Current Status Fungus Culture [...] Male) Date of 1980 Social Security Number [id number] [place] [address] [place] [address] Worship Unknown Marital Status Unknown Admission Date 04/04/2025 Admission Type Emergency Admitting Provider Jadyn Richardson DO Attending Provider Jadyn Richardson DO Department, Room/Bed [facility] 5G, S565/1 Discharge Date Discharge [...] [id number] Payor Plan Address Payor Plan Phone Number Payor Plan Fax Number Effective Dates [employer] [address] [address] 08/10/2023 - None Entered [facility] [address] Subscriber Name Subscriber Date Member ID WON DENNIS 1980 [id number] Emergency Contacts 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 (Rel.) Home Phone Work Phone Mobile Phone Avril Dennis (Spouse) -- -- [phone] Robert Hacktet (Relative) -- -- [phone] [facility] 5G [address] [facility] [address] Patient: ROOM: [facility] Won Dennis [address] [facility] [place] [address] : 1980 SSN: [id number] Sex: M PCP: Provider, No Known Emergency Contact Information Name Relation Home Work Mobile Avril Dennis Spouse [phone] Other Contacts Name Relation Home Work Mobile Robert Hackett Relative [phone] INSURANCE PAYOR PLAN GROUP # SUBSCRIBER ID Primary: Secondary: MEDICARE [place] [id number] Admitting Diagnosis: 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] Order Date: Apr 09, 2025 Case Management Aerospace Engineer Consult (Order ID: [id number]) Diagnosis: Priority: Routine Expected Date: Expiration Date: Interval: Once Count: Comments: Outpatient orders: 1. Outpatient intravenous antibiotic therapy: Daptomycin 800 mg IV daily to be supplied by [facility] 2. Home health to perform [...] INFECTIOUS DISEASE Progress Note Won Dennis 1980 [id number] Date of Consult: 04/10/2025 Admission Date: 04/04/2025 [...] Jr., MD, 20 mg at 04/09/25906 heparin 95523 units/250 mL (100 units/mL) in 0.45 % [...] vancomycin 2750 mg/500 mL 0.9% NS IVPB ([facility]) Ordering Provider: Mario Crowley, DO 20 [...] Units Date/Time FL C Arm During Surgery [[id number]] Resulted: 04/07/252137 Updated: 04/07/252137 Narrative: This procedure was auto-finalized with no dictation required. MRI Tibia Fibula Right With & Without Contrast [[id number]] Collected: 04/07/2538 Updated: 04/07/25 1001 Narrative: MRI [...] Buenrostro 04/07/2025 9:58 AM EDT Workstation ID: [id number] Impression: Recurrent Right BKA stump abscess/cellulitis- this [...] discussed his disposition with the pharmacist at [facility] today. I will sign off Outpatient orders: 1. Outpatient intravenous antibiotic therapy: Daptomycin 800 mg IV daily to be supplied by [facility] 2. Home health to perform [...] 04/10/251323 Creation Time: 04/10/251323 Signed Expand All [facility] Medicine Services PROGRESS NOTE Patient [...] Date/Time Wound Culture - Swab, Leg, Right [[id number]] (Abnormal) (Susceptibility) Collected: 04/07/252106 Lab Status: Final [...] Row Name 04/06/25 1143 Sit-Stand Transfer Sit-Stand [place] (Transfers) modified independence - Comment, (Sit-Stand Transfer) Pt stood from recliner. Not holding onto walker, pt able to pull his pants up while balancing on his one leg. -LM Row Name 04/06/25 1143 Gait/Stairs (Locomotion) [place] Level (Gait) modified independence - Distance in [...] Motion bilateral lower extremity ROM WFL -LM [facility] Name 04/06/25 1145 Strength Comprehensive (MMT) General Manual Muscle Testing (MMT) Assessment no strength deficits identified BLEs -LM [facility] Name 04/06/25 1145 Balance Balance [...] Physical Therapist Goals/Plan No documentation. Clinical Impression [facility] 04/06/25 1146 Pain Pretreatment Pain Rating 0/10 - no pain -LM Posttreatment Pain Rating 0/10 - no pain -LM [facility] 04/06/25 1146 Plan of Care Review Plan of Care Reviewed With patient -LM Outcome Evaluation PT evaluation completed. Pt demonstrated independence with all mobility including ambulating 100 feet using rw - no unsteadiness noted. Pt reports he feels at baseline and doesn't think he needs skilled PT while here. Recommend home at d/c. PT signing off. -LM [facility] Name 04/06/25 1146 Therapy Assessment/Plan (PT) Criteria for Skilled Interventions Met (PT) no;no problems identified which require skilled intervention -LM Therapy Frequency (PT) evaluation only -LM Predicted Duration of Therapy Intervention (PT) Eval Only -LM [facility] Name 04/06/25 1146 Vital Signs Pretreatment Heart Rate (beats/min) 86 -LM Posttreatment Heart Rate (beats/min) 96 -LM Pre SpO2 (%) 95 -LM O2 Delivery Pre Treatment room air -LM Post SpO2 (%) 96 -LM O2 Delivery Post Treatment room air -LM Pre Patient Position Sitting -LM Post Patient Position Sitting -LM [facility] Name 04/06/25 1146 Positioning and [...] Nurse Physical Therapy Education Title: PT OT JEWEL SORTER Therapies (Done) Topic: Physical Therapy (Done) Point: Mobility training (Done) Learning Progress Summary Patient Acceptance, E, VU,DU by at 04/06/2025 1147 Point: Precautions (Done) Learning Progress Summary Patient Acceptance, E, VU,DU by at 04/06/2025 1147 User Cabrera Initials Effective Dates Name Provider Type [facility] 01/24/25 - Susan Cavazos, PT Physical Therapist [...] Description Service Date Service Provider Modifiers Qty [id number] PT EVAL LOW COMPLEXITY 3 04/06/2025 Susan [...] mg Daily 04/05/2025 -- Route: Oral heparin 44151 units/250 mL (100 units/mL) in 0.45 % [...] 22 [facility] [address], [address] [facility], [address] Please schedule at [phone] VONDA Garcia 04/11/25 08:32 EDT Cosigned by Sushil Dean Jr., MD at 04/19/2025 10:33 AM EDT Associated attestation - Sushil Dean Jr., MD - 04/19/2025 10:33 AM EDT I have reviewed this documentation and agree. * Rosario Hill APRN - 04/10/2025 1:24 PM EDT Images from the original note were not included. [facility] Medicine Services PROGRESS NOTE Patient Name: [...] Date/Time Wound Culture - Swab, Leg, Right [[id number]] (Abnormal) (Susceptibility) Collected: 04/07/252106 Lab Status: Final [...] mg Daily 04/05/2025 -- Route: Oral heparin 47848 units/250 mL (100 units/mL) in 0.45 % [...] 22 [facility] [address], [address] [facility], [address] Please schedule at [phone] VONDA Garcia 04/10/25 09:01 EDT Cosigned by Sushil Dean Jr., MD at 04/19/2025 10:33 AM EDT Associated attestation - Sushil Dean Jr., MD - 04/19/2025 10:33 AM EDT I have reviewed this documentation and agree. * Carlton Mead MD - 04/10/2025 7:38 AM EDT Images from the original note were not included. INFECTIOUS DISEASE Progress Note Won Dennis 1980 [id number] Date of Consult: 04/10/2025 Admission Date: 04/04/2025 [...] IRRIGATION; Surgeon: Sushil Dean Jr., MD; Location: [facility]; Service: Orthopedics; Laterality: Right; PLACEMENT OF WOUND VAC Right 04/07/2025 Procedure: WOUND VACUUM ASSISTED CLOSURE; Surgeon: Sushil Dean Jr., MD; Location: [facility]; Service: Orthopedics; Laterality: Right; WOUND CLOSURE [...] Jr., MD, 20 mg at 04/09/25906 heparin 30173 units/250 mL (100 units/mL) in 0.45 % [...] 500 mL Status: Discontinued Ordering Provider: Sushil Daen Jr., MD 15 mg/kg ?? 134 kg [...] Units Date/Time FL C Arm During Surgery [[id number]] Resulted: 04/07/252137 Updated: 04/07/252137 Narrative: This procedure was auto-finalized with no dictation required. MRI Tibia Fibula Right With & Without Contrast [[id number]] Collected: 04/07/25937 Updated: 04/07/25 100 Narrative: MRI [...] Buenrostro 04/07/2025 9:58 AM EDT Workstation ID: [id number] Impression: Recurrent Right BKA stump abscess/cellulitis- this [...] discussed his disposition with the pharmacist at [facility] today. I will sign off Outpatient orders: 1. Outpatient intravenous antibiotic therapy: Daptomycin 800 mg IV daily to be supplied by [facility] 2. Home health to perform [...] MD 04/10/2025 07:38 EDT * [facility] - 04/10/2025 7:17 AM EDT Pharmacy to [...] from the original note were not included. [facility] Medicine Services PROGRESS NOTE Patient Name: [...] Date/Time Wound Culture - Swab, Leg, Right [[id number]] (Abnormal) Collected: 04/07/252106 Lab Status: Preliminary result [...] Jason Álvarez DO 04/09/25 * [facility] - 04/09/2025 11:36 AM EDT Pharmacy to [...] -- Admin Instructions: Open Order & Select [facility] Electrolyte Replacement Protocol Algorithm to View [...] mg Daily 04/05/2025 -- Route: Oral heparin 21552 units/250 mL (100 units/mL) in 0.45 % [...] -- Admin Instructions: Open Order & Select [facility] Electrolyte Replacement Protocol Algorithm to View [...] radiographs [facility] [address], [address] [facility], [address] Please schedule at [phone] VONDA Garcia 04/09/25 09:18 EDT Cosigned by Sushil Dean Jr., MD at 04/19/2025 10:33 AM EDT Associated attestation - Sushil Dean Jr., MD - 04/19/2025 10:33 AM EDT I have reviewed this documentation and agree. * Carlton eMad MD - 04/09/2025 8:25 AM EDT Images from the original note were not included. INFECTIOUS DISEASE Progress Note Won Dennis 1980 [id number] Date of Consult: 04/09/2025 Admission Date: 04/04/2025 [...] Surgeon: Sushil Dean Jr., MD; Location: [facility]; Service: Orthopedics; Laterality: Right; PLACEMENT OF WOUND VAC Right 04/07/2025 Procedure: WOUND VACUUM ASSISTED CLOSURE; Surgeon: Sushil Dean Jr., MD; Location: [facility] OR; Service: Orthopedics; Laterality: Right; [...] MD, 20 mg at 04/08/25 0800 heparin 96138 units/250 mL (100 units/mL) in 0.45 % NaCl infusion, 18 Units/kg/hr, Intravenous, Titrated, nUa Perla, PharmD, Last Rate: 24.1 mL/hr at [...] Units Date/Time FL C Arm During Surgery [[id number]] Resulted: 04/07/252137 Updated: 04/07/252137 Narrative: This procedure was auto-finalized with no dictation required. MRI Tibia Fibula Right With & Without Contrast [[id number]] Collected: 04/07/25 0938 Updated: 04/07/25 1001 Narrative: [...] Chitra 04/07/2025 9:58 AM EDT Workstation ID: [id number] Impression: Recurrent Right BKA stump abscess/cellulitis- this [...] mg IV daily to be supplied by [facility] 2. Home health to perform [...] from the original note were not included. [facility] Medicine Services PROGRESS NOTE Patient Name: [...] Buenrostro 04/07/2025 9:58 AM EDT Workstation ID: [id number] I have personally reviewed the therapy plans: [...] Jason Álvarez, DO 04/08/25 * [facility] - 04/08/2025 11:48 AM EDT Pharmacy to [...] 14 -- +2 16 1200 DW RN Mayr 04/06 1236 0.24 16 -- +2 18 [...] -- Admin Instructions: Open Order & Select [facility] Electrolyte Replacement Protocol Algorithm to View [...] mg Daily 04/05/2025 -- Route: Oral heparin 04918 units/250 mL (100 units/mL) in 0.45 % [...] INFECTIOUS DISEASE Progress Note Won Dennis 1980 [id number] Date of Consult: 04/08/2025 Admission Date: 04/04/2025 [...] MD; Location: [facility] OR; Service: Orthopedics; Laterality: Right; PLACEMENT OF WOUND VAC Right 04/07/2025 Procedure: WOUND VACUUM ASSISTED CLOSURE; Surgeon: Sushil Dean Jr., MD; Location: [facility] OR; Service: Orthopedics; Laterality: Right; [...] Oral, Q6H PRN, 500 mg at 04/06/25 0814 OR acetaminophen (TYLENOL) 160 MG/5ML oral solution [...] Jr., MD, 20 mg at 04/07/25950 heparin 53265 units/250 mL (100 units/mL) in 0.45 % [...] vancomycin 2750 mg/500 mL 0.9% NS IVPB ([facility]) Ordering Provider: Mario Crowley, DO 20 [...] Units Date/Time FL C Arm During Surgery [[id number]] Resulted: 04/07/252137 Updated: 04/07/252137 Narrative: This procedure was auto-finalized with no dictation required. MRI Tibia Fibula Right With & Without Contrast [[id number]] Collected: 04/07/25 0938 Updated: 04/07/25 1001 Narrative: [...] Buenrostro 04/07/2025 9:58 AM EDT Workstation ID: [id number] Impression: Right BKA stump cellulitis- s/p BKA with multiple surgical interventions with Known MRSA 05/09/2025. (Treated by ID in [place] Dr. Harris). Dr. Torres treated him with [...] from the original note were not included. [facility] Medicine Services PROGRESS NOTE Patient Name: [...] Buenrostro 04/07/2025 9:58 AM EDT Workstation ID: [id number] I have personally reviewed the therapy plans: [...] Jason DO Preeti 04/07/25 * [facility] - 04/07/2025 11:56 AM EDT Pharmacy to [...] INFECTIOUS DISEASE Progress Note Won Dennis 1980 [id number] Date of Consult: 04/07/2025 Admission Date: 04/04/2025 [...] MD, 20 mg at 04/06/25 0900 heparin 46717 units/250 mL (100 units/mL) in 0.45 % NaCl infusion, 18 Units/kg/hr, Intravenous, Titrated, [facility]ri Beatty, [facility], Last Rate: 24.1 mL/hr at 04/07/258, 18 [...] With & Without Contrast - In process [[id number]] Resulted: 04/07/25828 Updated: 04/07/25828 This result has not been signed. Information might be incomplete. 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 (Treated by ID in [place] Dr. Harris). Dr. Torres treated him with [...] -- Admin Instructions: Open Order & Select [facility] Electrolyte Replacement Protocol Algorithm to View [...] mg Daily 04/05/2025 -- Route: Oral heparin 18765 units/250 mL (100 units/mL) in 0.45 % [...] -- Admin Instructions: Open Order & Select [facility] Electrolyte Replacement Protocol Algorithm to View [...] MD 04/07/25 06:07 EDT * [facility] - 04/06/2025 1:47 PM EDT Pharmacy to [...] from the original note were not included. [facility] Medicine Services PROGRESS NOTE Patient Name: [...] MD 04/04/2025 11:00 PM EDT Workstation ID: [id number] I have personally reviewed the therapy plans: [...] mg Daily 04/05/2025 -- Route: Oral heparin 06431 units/250 mL (100 units/mL) in 0.45 % [...] -- Admin Instructions: Open Order & Select [facility] Electrolyte Replacement Protocol Algorithm to View [...] -- Admin Instructions: Open Order & Select [facility] Electrolyte Replacement Protocol Algorithm to View [...] INFECTIOUS DISEASE follow up. Won Dennis 1980 [id number] Date of Consult: 04/06/2025 Admission Date: 04/04/2025 [...] MD, 20 mg at 04/06/25 0900 heparin 77796 units/250 mL (100 units/mL) in 0.45 % NaCl infusion, 18 Units/kg/hr, Intravenous, Titrated, [facility], Last Rate: 24.1 mL/hr at 04/06/25 1420, [...] mg, 0.4 mg, Sublingual, Q5 Min PRN, Lenoora Shepherd MD ondansetron ODT (ZOFRAN-ODT) disintegrating tablet [...] Tibia Fibula Right With & Without Contrast [[id number]] Collected: 04/04/252256 Updated: 04/04/252302 Narrative: MRI TIBIA [...] represent a small area of phlegmonous change (ubgirp97 image 10) measuring approximately 1.6 cm which [...] MD 04/04/2025 11:00 PM EDT Workstation ID: [id number] Impression: Right BKA stump cellulitis- s/p BKA with multiple surgical interventions with Known MRSA 05/09/2025. (Treated by ID in [place] Dr. Harris). Dr. Torres treated him with [...] transitions of care for this complex patient. aCrlton Mead MD 04/06/2025 16:00 EDT * Cherri [...] from the original note were not included. [facility] Medicine Services PROGRESS NOTE Patient Name: [...] MD 04/04/2025 11:00 PM EDT Workstation ID: [id number] I have personally reviewed the therapy plans: [...] from the original note were not included. [facility] Medicine Services HISTORY AND PHYSICAL Patient [...] MD 04/04/2025 11:00 PM EDT Workstation ID: [id number] Assessment & Plan Assessment & Plan Won [...] 4FR PICC placed by Rhoda Bonner RN [facility], tip verified by 3CG see LDA. * Sushil Dean Jr., MD - 04/05/2025 8:07 AM EDTAssociated Order(s): IP CONSULT TO ORTHOPEDIC SURGERY [facility], [facility] [address] [address] Orthopedic Consult Patient: Won Dennis Date of [...] was evaluated in the emergency department in [place], was discharged with instructions for follow-up. He [...] tablet by mouth Daily. 04/03/2025 Morning Lactobacillus-Inulin ([facility]) capsule Take 200 mg by [...] MD 04/04/2025 11:00 PM EDT Workstation ID: [id number] Assessment: Right BKA infection 44-year-old male with [...] DISEASE CONSULT/INITIAL HOSPITAL VISIT Won Dennis 1980 [id number] Date of Consult: 04/05/2025 Admission Date: 04/04/2025 [...] specialty hospital. He is known to Dr. Dena. He [...] Leonora Shepherd MD, 40 mg at 04/04/25 1792 sennosides-docusate (PERICOLACE) 8.6-50 MG per tablet 2 [...] MD, 20 mg at 04/05/25 09 heparin 92076 units/250 mL (100 units/mL) in 0.45 % [...] Leonora Shepherd MD, 10 mg at 04/04/25 6010 Pharmacy to Dose Heparin, , Not Applicable, [...] Tibia Fibula Right With & Without Contrast [[id number]] Collected: 04/04/252256 Updated: 04/04/252302 Narrative: MRI TIBIA [...] represent a small area of phlegmonous change (xxgvee37 image 10) measuring approximately 1.6 cm which [...] MD 04/04/2025 11:00 PM EDT Workstation ID: [id number] Impression: Right BKA stump cellulitis- s/p BKA with multiple surgical interventions with Known MRSA 05/09/2025. (Treated by ID in [place] Dr. Harris). Dr. Torres treated him with [...] 04/08/2025 3:51 PM EDT [facility] OPERATIVE REPORT PATIENT NAME: Won Dennis DATE OF : 1980 PREOP DIAGNOSIS: Right Right below-knee amputation infection POSTOP DIAGNOSIS: Same. PROCEDURE: Right Right 68962: Secondary closure below-knee amputation SURGEON: Sushil Dean MD OPERATIVE TEAM: Code Machine Operator: Susi Grullon RN Scrub Person: Mary Paredes Scrub Person Extra: Hortencia Toribio Other: Katt Gotti RN; Charis Neville RN ANESTHETIST: Anesthesiologist: Ulises Hoffman MD MATERIAL ASSISTANT: Stan Casillas CRNA Student Nurse Head Of Physics: Karol Albert SRNA ANESTHESIA: Choice ESTIMATED BLOOD [...] CULTURE (Canceled) Sushil Dean Jr., MD 04/08/25 0881 Description: RIGHT LEG DEEP WOUND FOR CULTURE [...] PM EDT [facility], [place] [address] OPERATIVE REPORT PATIENT NAME: Won Dennis DATE OF : 1980 PREOP DIAGNOSIS: Right Right below knee amputation stump infection POSTOP DIAGNOSIS: Same. PROCEDURE: Right Right 85198: Incision and drainage of surgical site infection 84077: Debridement of skin, subcutaneous tissue, muscle 64720: Wound vacuum-assisted closure SURGEON: Sushil Dean MD OPERATIVE TEAM: Code Machine Operator: Anum Sanchez RN Scrub Person: Hortencia Toribio; Gerald Ivey MANAGER UI: Anesthesiologist: Luci Alosno DO ANESTHESIA: General ESTIMATED BLOOD LOSS: 30 [...] this chart in the absence of a program director scouting. No orders to display RADIOLOGY: [x] Radiologist's [...] changes. DEBRA has spoke with Dena at [facility] today multiple times to [...] to get IV ABX at home with [facility]; however, Medicaid lapsed on 04/08. DEBRA was unaware until this morning that Medicaid has lapsed. Patient explained that he has Medicare A and B. CM spoke with KELLEE and given themhis Medicare number [id number], she sent it to Admission. DEBRA spoke with Kerri, with [facility], and explained that he had Medicare A and B. However, it will not cover home infusion. It will be $64.00 a day out of packet. Patients can go to the Infusion center at [facility], and it will cover the [...] [facility] at [phone]. CM will follow up with them tomorrow [...] 04/09/2025 2:51 PM EDT Continued Stay Note [facility] Patient Name: Won Dennis Today's Date: 04/09/2025 Admit Date: 04/04/2025 Plan: Home Discharge Plan Row Name 04/09/25 1311 Plan Plan Home Patient/Family in Agreement with Plan yes Plan Comments CM spoke with patient at bedside today. Wheelchair from [employer] is at bedside. Patient getting PICC line [...] note were not included. 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 Patient lives with and his 5 kids in [facility]. 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 He has walker, cane, shower chair, and crutches. He requested a wheelchair for home. CM [facility]. He is not current with home health [...] General Information Arrived From hospital Preferred Language [place] Citizen Functional Status Row Name 04/07/25 1143 Functional [...] - 10.80 10*3/mm3 04/11/2025 4:02 AM EDT [facility] RBC 4.70 4.14 - 5.80 10*6/mm3 04/11/2025 4:02 AM [facility] Hemoglobin 12.8(L) 13.0 - 17.7 g/dL 04/11/2025 4:02 AM [facility] Hematocrit 40.5 37.5 - 51.0 % 04/11/2025 4:02 AM [facility] MCV 86.2 79.0 - 97.0 fL 04/[facility]25 [facility] MCH 27.2 26.6 - 33.0 pg 04/11/2025 4:02 AM [facility] MCHC 31.6 31.5 - 35.7 g/dL 04/11/2025 4:02 AM [facility] RDW 12.9 12.3 - 15.4 % 04/11/2025 4:02 AM [facility] RDW-SD 40.5 37.0 - 54.0 fl 04/11/2025 4:02 AM [facility] MPV 9.2 6.0 - 12.0 fL 04/11/2025 4:02 AM [facility] Platelets 267 140 [...] - 7.00 10*3/mm3 04/11/2025 4:02 AM EDT [facility] Lymphocytes, Absolute 2.07 0.70 - 3.10 10*3/mm3 04/11/2025 4:02 AM EDT [facility] Monocytes, Absolute 0.73 0.10 - 0.90 10*3/mm3 04/11/2025 4:02 AM EDT [facility] Eosinophils, Absolute 0.32 0.00 - 0.40 10*3/mm3 04/11/2025 4:02 AM EDT [facility] Basophils, Absolute 0.03 0.00 - 0.20 10*3/mm3 04/11/2025 4:02 AM EDT [facility] Immature Grans, Absolute 0.03 0.00 - 0.05 10*3/mm3 04/11/2025 4:02 AM EDT [facility] nRBC 0.0 0.0 - 0.2 /100 WBC 04/11/2025 4:02 AM EDT [facility] Blood Venipuncture / Unknown 04/11/2025 3:40 AM EDT 04/11/2025 3:59 AM EDT us Sushil Dean Jr., MD LAB BLOOD ORDERABLES Fi nal Result [facility]
[address] [place] [address], * (ABNORMAL) Comprehensive Metabolic Panel (04/11/2025 3:40 AM EDT) [facility] Signature Glucose 108(H) 65 - 99 mg/dL 04/11/2025 4:19 AM EDT [facility] BUN 12.5 6.0 - 20.0 mg/dL 04/11/2025 4:19 AM EDT [facility] Creatinine 0.68(L) 0.76 - 1.27 mg/dL 04/11/2025 4:19 AM [facility] Sodium 140 136 - 145 mmol/L 04/11/2025 4:19 AM [facility] Potassium 3.8 3.5 - 5.2 mmol/L 04/11/2025 4:19 AM [facility] Chloride 105 98 - 107 mmol/L 04/11/2025 4:19 AM [facility] CO2 28.2 22.0 - 29.0 mmol/L 04/11/2025 4:19 AM [facility] Calcium 8.2(L) 8.6 - 10.5 mg/dL 04/11/2025 4:19 AM [facility] Total Protein 6.1 6.0 - 8.5 g/dL 04/11/2025 4:19 AM [facility] Albumin 3.1(L) 3.5 - 5.2 g/dL 04/11/2025 4:19 AM [facility] ALT (SGPT) 52(H) 1 - 41 U/L 04/11/2025 4:19 AM [facility] AST (SGOT) 40 1 - 40 U/L 04/11/2025 4:19 AM [facility] Alkaline Phosphatase 99 39 - 117 U/L 04/11/2025 4:19 AM [facility] Total Bilirubin 0.2 0.0 - 1.2 mg/dL 04/11/2025 4:19 AM [facility] Globulin 3.0 gm/dL 04/11/2025 4:19 AM [facility] Comment:Calculated Result A/G Ratio 1.0 g/dL 04/11/2025 4:19 AM [facility] BUN/Creatinine Ratio 18.4 7.0 - 25.0 04/11/2025 4:19 AM [facility] Anion Gap 6.8 5.0 - 15.0 mmol/L 04/11/2025 4:19 AM [facility] eGFR 117.5 >60.0 mL/min/1.7 3 04/11/2025 4:19 AM EDT [facility] Blood Venipuncture / [...] include race as a factor [place] [employer] LAB BLOOD ORDERABLES Final Result [facility]
[address] [place] [address], * (ABNORMAL) CBC Auto Differential (04/10/2025 3:46 AM EDT) WBC 9.60 3.40 - 10.80 10*3/mm3 04/10/2025 3:56 AM EDT [facility] RBC 4.67 4.14 - 5.80 10*6/mm3 04/10/2025 3:56 AM EDT [facility] Hemoglobin 12.9(L) 13.0 - 17.7 g/dL 04/10/2025 3:56 AM EDT [facility] Hematocrit 40.1 37.5 - 51.0 % 04/10/2025 3:56 AM EDT [facility] MCV 85.9 79.0 - 97.0 fL 04/10/2025 3:56 AM EDT [facility] MCH 27.6 26.6 - 33.0 pg 04/10/2025 3:56 AM EDT [facility] MCHC 32.2 31.5 - 35.7 g/dL 04/10/2025 3:[facility] RDW 12.9 12.3 - 15.4 % 04/10/2025 3:56 AM [facility] RDW-SD 40.5 37.0 - 54.0 fl 04/10/2025 3:56 AM [facility] MPV 9.5 6.0 - 12.0 fL 04/10/2025 3:56 AM EDT [facility] Platelets 227 140 - 450 10*3/mm3 04/10/2025 3:56 AM [facility] Neutrophil % 59.1 42.7 - 76.0 % 04/10/2025 3:56 AM [facility] Lymphocyte % 29.0 19.6 - 45.3 % 04/10/2025 3:56 AM [facility] Monocyte % 8.1 5.0 - 12.0 % 04/10/2025 3:[facility] Eosinophil % 3.2 0.3 - 6.2 % 04/10/2025 3:56 AM [facility] Basophil % 0.4 0.0 - 1.5 % 04/10/2025 3:56 AM [facility] Immature Grans % 0.2 0.0 - 0.5 % 04/10/2025 3:56 AM [facility] Neutrophils, Absolute 5.67 [...] - 0.20 10*3/mm3 04/10/2025 3:56 AM EDT [facility] Immature Grans, Absolute 0.02 0.00 - 0.05 10*3/mm3 04/10/2025 3:56 AM EDT [facility] nRBC 0.0 0.0 - 0.2 /100 WBC 04/10/2025 3:56 AM EDT [facility] Blood Venipuncture / Unknown 04/10/2025 3:46 AM EDT 04/10/2025 3:53 AM EDT us Jason Álvarez DO LAB BLOOD ORDERABLES Final Resul t [facility]
[address] [place] [address], * (ABNORMAL) Basic Metabolic Panel (04/10/2025 3:46 AM EDT) Glucose 125(H) 65 - 99 mg/dL 04/10/2025 4:20 AM EDT [facility] BUN 15.9 6.0 - 20.0 mg/dL 04/10/2025 4:20 AM EDT [facility] Creatinine 0.77 0.76 - 1.27 mg/dL 04/10/2025 4:20 AM EDT [facility] Sodium 137 136 - 145 mmol/L 04/10/2025 4:20 AM EDT [facility] Potassium 3.9 3.5 - 5.2 mmol/L 04/10/2025 4:20 AM EDT [facility] Chloride 102 98 - 107 mmol/L 04/10/2025 4:20 AM EDT [facility] CO2 26.9 22.0 - 29.0 mmol/L 04/10/2025 4:20 AM EDT [facility] Calcium 7.9(L) 8.6 - 10.5 mg/dL 04/10/2025 4:20 AM EDT [facility] BUN/Creatinine Ratio 20.6 7.0 - 25.0 04/10/2025 4:20 AM EDT [facility] Anion Gap 8.1 5.0 - 15.0 mmol/L 04/10/2025 4:20 AM EDT [facility] eGFR 113.2 >60.0 mL/min/1.7 3 04/10/2025 4:20 AM EDT [facility] Blood Venipuncture / Unknown 04/10/2025 3:46 AM EDT 04/10/2025 3:52 AM EDT Narrative [facility] - 04/10/2025 4:20 AM [...] DO LAB BLOOD ORDERABLES Final Resul t [facility]
[address] [place] [address], * Heparin Anti-Xa (04/10/2025 3:46 AM EDT) Heparin Anti-Xa (UFH) 0.35 0.30 - 0.70 IU/ml 04/10/2025 4:23 AM EDT [facility] Blood Venipuncture / Unknown 04/10/2025 3:46 AM EDT 04/10/2025 3:53 AM EDT [facility] LAB BLOOD ORDERABLES Final R esult [facility]
[address] [place] [address], * Heparin Anti-Xa (04/09/2025 10:05 AM EDT) Pathologist [facility] Heparin Anti-Xa (UFH) 0.36 0.30 - 0.70 IU/ml 04/09/2025 11:12 AM EDT [facility] Blood Venipuncture / Unknown 04/09/2025 10:05 AM EDT 04/09/2025 10:47 AM EDT [facility] LAB BLOOD ORDERABLES Final R esult [facility]
[address] [place] [address], * (ABNORMAL) CBC Auto Differential (04/09/2025 4:18 AM EDT) Pathologist [facility] WBC 11.00(H) 3.40 - 10.80 10*3/mm3 04/09/2025 4:50 AM EDT [facility] RBC 4.70 4.14 - 5.80 10*6/mm3 04/09/2025 4:50 AM EDT [facility] Hemoglobin 13.0 13.0 - 17.7 g/dL 04/09/2025 4:50 AM EDT [facility] Hematocrit 40.4 37.5 - 51.0 % 04/09/2025 4:50 AM EDT [facility] MCV 86.0 79.0 - 97.0 fL 04/09/2025 4:50 AM EDT [facility] MCH 27.7 26.6 - 33.0 pg 04/09/2025 4:50 AM EDT [facility] MCHC 32.2 31.5 - 35.7 g/dL 04/09/2025 4:50 AM EDT [facility] RDW 12.8 12.3 - 15.4 % 04/09/2025 4:50 AM [facility] RDW-SD 39.9 37.0 - 54.0 fl 04/09/2025 4:50 AM [facility] MPV 10.0 6.0 - 12.0 fL 04/09/2025 4:50 AM [facility] Platelets 211 140 - 450 10*3/mm3 04/09/2025 4:[facility] Neutrophil % 74.8 42.7 - 76.0 % 04/09/2025 4:50 AM [facility] Lymphocyte % 15.4(L) 19.6 - 45.3 % 04/09/2025 4:50 AM [facility] Monocyte % 8.5 5.0 - 12.0 % 04/09/2025 4:50 AM [facility] Eosinophil % 0.6 0.3 - 6.2 % 04/09/2025 4:50 AM [facility] Basophil % 0.4 0.0 - 1.5 % 04/09/2025 4:50 AM [facility] Immature Grans % 0.3 0.0 - 0.5 % 04/09/2025 4:50 AM [facility] Neutrophils, Absolute 8.23(H) 1.70 - 7.00 10*3/mm3 04/09/2025 4:50 AM [facility] Lymphocytes, Absolute 1.69 0.70 - 3.10 10*3/mm3 04/09/2025 4:50 AM [facility] Monocytes, Absolute 0.94(H) 0.10 - 0.90 10*3/mm3 04/09/2025 4:[facility] Eosinophils, Absolute 0.07 0.00 - 0.40 10*3/mm3 04/09/2025 4:50 AM [facility] Basophils, Absolute 0.04 0.00 - 0.20 10*3/mm3 04/09/2025 4:50 AM [facility] Immature Grans, Absolute 0.03 0.00 - 0.05 10*3/mm3 04/09/2025 4:50 AM EDT [facility] nRBC 0.0 0.0 - 0.2 /100 WBC 04/09/2025 4:50 AM EDT [facility] Blood Venipuncture / Unknown 04/09/2025 4:18 AM EDT 04/09/2025 4:31 AM EDT Sushil Dean Jr., MD LAB BLOOD ORDERABLES Fi nal Result [facility]
[address] [place] [address], * Heparin Anti-Xa (04/09/2025 4:18 AM EDT) Heparin Anti-Xa (UFH) 0.41 0.30 - 0.70 IU/ml 04/09/2025 4:53 AM EDT [facility] Blood Venipuncture / Unknown 04/09/2025 4:18 AM EDT 04/09/2025 4:31 AM EDT Una LundbergD LAB BLOOD ORDERABLES Final R esult [facility]
[address] [place] [address], * (ABNORMAL) Basic Metabolic Panel (04/09/2025 4:18 AM EDT) Glucose 147(H) 65 - 99 mg/dL 04/09/2025 5:33 AM EDT [facility] BUN 23.0(H) 6.0 - 20.0 mg/dL 04/09/2025 5:33 AM EDT [facility] Creatinine 1.15 0.76 - 1.27 mg/dL 04/09/2025 5:33 AM EDT [facility] Sodium 135(L) 136 - 145 mmol/L 04/09/2025 5:33 AM EDT [facility] Potassium 4.2 3.5 - 5.2 mmol/L 04/09/2025 5:33 AM EDT [facility] Chloride 100 98 - 107 mmol/L 04/09/2025 5:33 AM EDT [facility] CO2 26.0 22.0 - 29.0 mmol/L 04/09/2025 5:33 AM EDT [facility] Calcium 8.2(L) 8.6 - 10.5 mg/dL 04/09/2025 5:33 AM EDT [facility] BUN/Creatinine Ratio 20.0 7.0 - 25.0 04/09/2025 5:33 AM EDT [facility] Anion Gap 9.0 5.0 - 15.0 mmol/L 04/09/2025 5:33 AM EDT [facility] eGFR 80.5 >60.0 mL/min/1.7 3 04/09/2025 5:33 AM EDT [facility] Blood Venipuncture / Unknown 04/09/2025 4:18 AM EDT 04/09/2025 4:29 AM EDT [facility] - 04/09/2025 5:33 AM EDT [...] MD LAB BLOOD ORDERABLES Fi nal Result [facility]
[address] [place] [address], * Wound Culture - Swab, Leg, Right (04/08/2025 3:40 PM EDT) Wound Culture No growth at 3 days ALIZA 04/11/2025 10:40 AM EDT [facility] Gram Stain Few (2+) WBCs seen 04/11/2025 10:40 AM EDT [facility] Gram Stain No organisms seen 04/11/2025 10:40 AM EDT [facility] Swab Structure of right lower limb / Unknown 04/08/2025 3:40 PM EDT 04/08/2025 8:05 PM EDT Sushil Dean Jr., MD MICROBIOLOGY - GENERAL ORDERABLES Final Result Performing Organization Address City/[facility]/ZIP Co de Phone Number [facility]
[address] [place] [address], [facility]
[address] [place] [address], * Anaerobic Culture - Swab, Leg, Right (04/08/2025 3:40 PM EDT) Pathologist [facility] Anaerobic Culture No anaerobes isolated at 5 days ALIZA 04/13/2025 7:24 AM EDT [facility] Swab Structure of right lower limb / Unknown 04/08/2025 3:40 PM EDT 04/08/2025 8:05 PM EDT Sushil Dean Jr., MD MICROBIOLOGY - GENERAL ORDERABLES Final Result [facility]
[address] [place] [address], * Scan Slide (04/08/2025 8:41 AM EDT) RBC Morphology Normal Normal 04/08/2025 11:02 AM EDT [facility] WBC Morphology Normal Normal 04/08/2025 11:02 AM EDT [facility] Platelet Estimate Adequate Normal 04/08/2025 11:02 AM EDT [facility] Clumped Platelets Present None Seen 04/08/2025 11:02 AM EDT [facility] Blood Venipuncture / Unknown 04/08/2025 8:41 AM EDT 04/08/2025 9:10 AM EDT Una Minda PharmD LAB BLOOD ORDERABLES Final R esult [facility]
[address] [place] [address], * (ABNORMAL) CBC Auto Differential (04/08/2025 8:41 AM EDT) WBC 10.07 3.40 - 10.80 10*3/mm3 04/08/2025 11:02 AM EDT [facility] RBC 5.01 4.14 - 5.80 10*6/mm3 04/08/2025 11:02 AM EDT [facility] Hemoglobin 14.0 13.0 - 17.7 g/dL 04/08/2025 11:02 AM EDT [facility] Hematocrit 42.7 37.5 - 51.0 % 04/08/2025 11:02 AM EDT [facility] MCV 85.2 79.0 - 97.0 fL 04/08/2025 11:02 AM EDT [facility] MCH 27.9 26.6 - 33.0 pg 04/08/2025 11:02 AM EDT [facility] MCHC 32.8 31.5 - 35.7 g/dL 04/08/2025 11:02 AM EDT [facility] RDW 12.6 12.3 - 15.4 % 04/08/2025 11:02 AM EDT [facility] RDW-SD 38.9 37.0 [...] 1.70 - 7.00 10*3/mm3 04/08/2025 11:02 AM [facility] Lymphocytes, Absolute 0.94 0.70 - 3.10 10*3/mm3 04/08/2025 11:02 AM [facility] Monocytes, Absolute 0.46 0.10 - 0.90 10*3/mm3 04/08/2025 11:02 AM [facility] Eosinophils, Absolute 0.03 0.00 - 0.40 10*3/mm3 04/08/2025 11:02 AM [facility] Basophils, Absolute 0.02 0.00 - 0.20 10*3/mm3 04/08/2025 11:02 AM [facility] Immature Grans, Absolute 0.05 0.00 - 0.05 10*3/mm3 04/08/2025 11:02 AM EDT [facility] nRBC 0.0 0.0 - 0.2 /100 WBC 04/08/2025 11:02 AM EDT [facility] Blood Venipuncture / Unknown 04/08/2025 8:41 AM EDT 04/08/2025 9:10 AM EDT Una Perla PharmD LAB BLOOD ORDERABLES Final R esult [facility]
[address] [place] [address], * (ABNORMAL) Basic Metabolic Panel (04/08/2025 8:41 AM EDT) Glucose 125(H) 65 - 99 mg/dL 04/08/2025 9:51 AM EDT [facility] BUN 13.2 6.0 - 20.0 mg/dL 04/08/2025 9:51 AM EDT [facility] Creatinine 0.69(L) 0.76 - 1.27 mg/dL 04/08/2025 9:51 AM EDT [facility] Sodium 136 136 - 145 mmol/L 04/08/2025 9:51 AM EDT [facility] Potassium 4.6 3.5 - 5.2 mmol/L 04/08/2025 9:51 AM EDT [facility] Chloride 102 98 - 107 mmol/L 04/08/2025 9:51 AM EDT [facility] CO2 23.5 22.0 - 29.0 mmol/L 04/08/2025 9:51 AM EDT [facility] Calcium 8.4(L) 8.6 - 10.5 mg/dL 04/08/2025 9:51 AM EDT [facility] BUN/Creatinine Ratio 19.1 7.0 - 25.0 04/08/2025 9:51 AM EDT [facility] Anion Gap 10.5 5.0 - 15.0 mmol/L 04/08/2025 9:51 AM EDT [facility] eGFR 117.0 >60.0 mL/min/1.7 3 04/08/2025 9:51 AM EDT [facility] Blood Venipuncture / Unknown 04/08/2025 8:41 AM EDT 04/08/2025 9:09 AM EDT Narrative [facility] - 04/08/2025 9:51 AM [...] ORDERABLES Fi nal Result Performing Organization Address City/[facility]/ZIP Co de Phone Number [facility]
[address] [place] [address], * Heparin Anti-Xa (04/08/2025 8:41 AM EDT) Heparin Anti-Xa (UFH) 0.33 0.30 - 0.70 IU/ml 04/08/2025 9:40 AM EDT [facility] Blood Venipuncture / Unknown 04/08/2025 8:41 AM EDT 04/08/2025 9:10 AM EDT us Sushil Dean Jr., MD LAB BLOOD ORDERABLES Fi nal Result [facility]
[address] [place] [address], * FL C Arm During Surgery (04/07/2025 9:32 PM EDT) Narrative SYSTEMGENERATED, DOCUMENTATION - 04/07/2025 9:38 PM EDT This procedure was auto-finalized with no dictation required. us Sushil Dean Jr., MD IMG FLUOROSCOPY ORDERAB LES Final Result * Wound Culture - Swab, Leg, Right (04/07/2025 9:14 PM EDT) Wound Culture No growth at 3 days ALIZA 04/11/2025 10:40 AM EDT [facility] Gram Stain Occasional WBCs seen 04/11/2025 10:40 AM EDT [facility] Gram Stain No organisms seen 04/11/2025 10:40 AM EDT [facility] Swab Structure of right lower limb / Unknown Collection / Unknown 04/07/2025 9:14 PM EDT 04/08/2025 4:36 AM EDT us Sushil Dean Jr., MD MICROBIOLOGY - GENERAL ORDERABLES Final Result Performing Organization Address City/[facility]/ZIP Co de Phone Number [facility]
[address] [place] [address], [facility]
[address] [place] [address], * Anaerobic Culture - Swab, Leg, Right (04/07/2025 9:14 PM EDT) Anaerobic Culture No anaerobes isolated at 5 days ALIZA 04/13/2025 7:21 AM EDT [facility] Swab Structure of right lower limb / Unknown Collection / Unknown 04/07/2025 9:14 PM EDT 04/08/2025 4:36 AM EDT us Sushil Dean Jr., MD MICROBIOLOGY - GENERAL ORDERABLES Final Result [facility]
[address] [place] [address], * Anaerobic Culture - Tissue, Leg (04/07/2025 9:13 PM EDT) Pathologist [facility] Anaerobic Culture No anaerobes isolated at 5 days ALIZA 04/13/2025 7:21 AM EDT [facility] Tissue Lower limb structure / Unknown Collection / Unknown 04/07/2025 9:13 PM EDT 04/08/2025 4:54 AM EDT Jason Álvarez DO MICROBIOLOGY - GENERAL ORDERABLE S Final Result [facility]
[address] [place] [address], * Tissue / Bone Culture - Tissue, Leg, Right (04/07/2025 9:13 PM EDT) [facility] Tissue Culture No growth at 3 days ALIZA 04/11/2025 10:36 AM EDT [facility] Gram Stain Rare (1+) WBCs seen 04/11/2025 10:36 AM EDT [facility] Gram Stain No organisms seen 04/11/2025 10:36 AM EDT [facility] Tissue Structure of right lower limb / Unknown 04/07/2025 9:13 PM EDT 04/08/2025 4:54 AM EDT Sushil Dean Jr., MD MICROBIOLOGY - GENERAL ORDERABLES Final Result [facility]
[address] [place] [address], [facility]
[address] [place] [address], * (ABNORMAL) Wound Culture - Swab, Leg, Right (04/07/2025 9:07 PM EDT) Pathologist [facility] Wound Culture Light growth (2+) Staphylococcus aureus, MRSA(A) ALIZA 04/10/2025 10:38 AM EDT [facility] Comment: Methicillin resistant Staphylococcus aureus, Patient may be an isolation risk. Gram Stain Few (2+) WBCs seen 04/10/2025 10:38 AM EDT [facility] Gram Stain No organisms seen 10:38 AM EDT [facility] Swab Structure of right [...] MD MICROBIOLOGY - GENERAL ORDERABLES Final Result [facility]
[address] [place] [address], [place] [phone] [facility]
[address] [place] [address], [place] [phone] * Anaerobic Culture - Swab, Leg, Right (04/07/2025 9:07 PM EDT) Anaerobic Culture No anaerobes isolated at 5 days ALIZA 04/13/2025 7:21 AM EDT [facility] Swab Structure of right lower limb / Unknown Collection / Unknown 04/07/2025 9:07 PM EDT 04/08/2025 4:36 AM EDT us Sushil Dean Jr., MD MICROBIOLOGY - GENERAL ORDERABLES Final Result [facility]
[address] [place] [address], * Heparin Anti-Xa (04/07/2025 9:10 AM EDT) [facility] Heparin Anti-Xa (UFH) 0.30 0.30 - 0.70 IU/ml 04/07/2025 10:12 AM EDT [facility] Blood Venipuncture / Unknown 04/07/2025 9:10 AM EDT 04/07/2025 9:38 AM EDT Una Perla PharmD LAB BLOOD ORDERABLES Final R esult [facility]
[address] [place] [address], * (ABNORMAL) CBC Auto Differential (04/07/2025 9:10 AM EDT) [facility] WBC 8.63 3.40 - 10.80 10*3/mm3 04/07/2025 9:50 AM EDT [facility] RBC 5.23 4.14 - 5.80 10*6/mm3 04/07/2025 9:50 AM EDT [facility] Hemoglobin 14.7 13.0 - 17.7 g/dL 04/07/2025 9:50 AM EDT [facility] Hematocrit 44.8 37.5 - 51.0 % 04/07/2025 9:50 AM EDT [facility] MCV 85.7 79.0 - 97.0 fL 04/07/2025 9:50 AM EDT [facility] MCH 28.1 26.6 - 33.0 pg 04/07/2025 9:50 AM EDT [facility] MCHC 32.8 31.5 - 35.7 g/dL 04/07/2025 9:50 AM EDT [facility] RDW 12.8 12.3 - 15.4 % 04/07/2025 9:50 AM [facility] RDW-SD 39.9 37.0 - 54.0 fl 04/07/2025 9:50 AM [facility] MPV 10.8 6.0 - 12.0 fL 04/07/2025 9:50 AM [facility] Platelets 149 140 - 450 10*3/mm3 04/07/2025 9:50 AM [facility] Neutrophil % 66.7 42.7 - 76.0 % 04/07/2025 9:50 AM [facility] Lymphocyte % 20.5 19.6 - 45.3 % 04/07/2025 9:50 AM [facility] Monocyte % 9.8 5.0 - 12.0 % 04/07/2025 9:50 AM [facility] Eosinophil % 2.1 0.3 - 6.2 % 04/07/2025 9:50 AM [facility] Basophil % 0.3 0.0 - 1.5 % 04/07/2025 9:50 AM [facility] Immature Grans % 0.6(H) 0.0 - 0.5 % 04/07/2025 9:50 AM [facility] Neutrophils, Absolute 5.75 1.70 - 7.00 10*3/mm3 04/07/2025 9:50 AM [facility] Lymphocytes, Absolute 1.77 0.70 - 3.10 10*3/mm3 04/07/2025 9:50 AM [facility] Monocytes, Absolute 0.85 0.10 - 0.90 10*3/mm3 04/07/2025 9:50 AM [facility] Eosinophils, Absolute 0.18 0.00 - 0.40 10*3/mm3 04/07/2025 9:50 AM [facility] Basophils, Absolute 0.03 0.00 - 0.20 10*3/mm3 04/07/2025 9:50 AM [facility] Immature Grans, Absolute 0.05 0.00 - 0.05 10*3/mm3 04/07/2025 9:50 AM EDT [facility] nRBC 0.0 0.0 - 0.2 /100 WBC 04/07/2025 9:50 AM EDT [facility] Blood Venipuncture / Unknown 04/07/2025 9:10 AM EDT 04/07/2025 9:38 AM EDT Jasonalfonso Álvarez LAB BLOOD ORDERABLES Final Resul t [facility]
[address] [place] [address], * (ABNORMAL) Basic Metabolic Panel (04/07/2025 9:10 AM EDT) Glucose 112(H) 65 - 99 mg/dL 04/07/2025 10:19 AM EDT [facility] BUN 13.1 6.0 - 20.0 mg/dL 04/07/2025 10:19 AM EDT [facility] Creatinine 0.77 0.76 - 1.27 mg/dL 04/07/2025 10:19 AM EDT [facility] Sodium 139 136 - 145 mmol/L 04/07/2025 10:19 AM EDT [facility] Potassium 4.2 3.5 - 5.2 mmol/L 04/07/2025 10:19 AM EDT [facility] Comment:Specimen hemolyzed. Result may be falsely elevated. Chloride 105 98 - 107 mmol/L 04/07/2025 10:19 AM EDT [facility] CO2 24.8 22.0 - 29.0 mmol/L 04/07/2025 10:19 AM EDT [facility] Calcium 8.6 8.6 - 10.5 mg/dL 04/07/2025 10:19 AM EDT [facility] BUN/Creatinine Ratio 17.0 7.0 - 25.0 04/07/2025 10:19 AM EDT [facility] Anion Gap 9.2 5.0 - 15.0 mmol/L 04/07/2025 10:19 AM EDT [facility] eGFR 113.2 >60.0 mL/min/1.7 3 04/07/2025 10:19 AM EDT [facility] Blood Venipuncture / Unknown 04/07/2025 9:10 AM EDT 04/07/2025 9:38 AM EDT Narrative [facility] - 04/07/2025 10:19 AM [...] Álvarez LAB BLOOD ORDERABLES Final Resul t [facility]
[address] [place] [address], * MRI Tibia Fibula Right With & [...] [place] 04/07/2025 9:58 AM EDT Workstation ID: [id number] Narrative 04/07/2025 9:58 AM EDT MRI TIBIA [...] [place] 04/07/2025 9:58 AM EDT Workstation ID: [id number] Sushil Dean Jr., MD IM MRI ORDERABLES Mary Beth l Result * Heparin Anti-Xa (04/07/2025 1:42 AM EDT) [facility] Heparin Anti-Xa (UFH) 0.38 0.30 - 0.70 IU/ml 04/07/2025 2:14 AM EDT [facility] Blood Venipuncture / Unknown 04/07/2025 1:42 AM EDT 04/07/2025 1:54 AM EDT [facility] LAB BLOOD ORDERABLES Final R esult [facility]
[address] [place] [address], * Heparin Anti-Xa (04/06/2025 7:16 PM EDT) [facility] Heparin Anti-Xa (UFH) 0.33 0.30 - 0.70 IU/ml 04/06/2025 7:50 PM EDT [facility] Blood Venipuncture / Unknown 04/06/2025 7:16 PM EDT 04/06/2025 7:35 PM EDT Cherri Beatty RP LAB BLOOD ORDERABLES Final Res ult Performing Organization Address City/[facility]/ZIP Co de Phone Number [facility]
[address] [place] [address], * Potassium (04/06/2025 7:16 PM EDT) Potassium 4.0 3.5 - 5.2 mmol/L 04/06/2025 7:53 PM EDT [facility] Blood Venipuncture / Unknown 04/06/2025 7:16 PM EDT 04/06/2025 7:35 PM EDT Jason Álvarez DO LAB BLOOD ORDERABLES Final Resul t Performing Organization Address [facility] de Phone Number [facility]
[address] [place] [address], * (ABNORMAL) Heparin Anti-Xa (04/06/2025 12:36 PM EDT) Heparin Anti-Xa (UFH) 0.24(L) 0.30 - 0.70 IU/ml 04/06/2025 1:23 PM EDT [facility] Blood Venipuncture / Unknown 04/06/2025 12:36 PM EDT 04/06/2025 1:07 PM EDT Una LundbergD LAB BLOOD ORDERABLES Final R esult Performing Organization Address [facility] Co de Phone Number [facility]
[address] [place] [address], * (ABNORMAL) Heparin Anti-Xa (04/06/2025 3:42 AM EDT) Heparin Anti-Xa (UFH) 0.25(L) 0.30 - 0.70 IU/ml 04/06/2025 5:30 AM EDT [facility] Blood Venipuncture / Unknown 04/06/2025 3:42 AM EDT 04/06/2025 4:59 AM EDT [facility] LAB BLOOD ORDERABLES Final R esult [facility]
[address] [place] [address], * (ABNORMAL) Basic Metabolic Panel (04/06/2025 3:42 AM EDT) Pathologist [facility] Glucose 94 65 - 99 mg/dL 04/06/2025 5:59 AM EDT [facility] BUN 12.8 6.0 - 20.0 mg/dL 04/06/2025 5:59 AM EDT [facility] Creatinine 0.80 0.76 - 1.27 mg/dL 04/06/2025 5:59 AM EDT [facility] Sodium 138 136 - 145 mmol/L 04/06/2025 5:59 AM EDT [facility] Potassium 3.6 3.5 - 5.2 mmol/L 04/06/2025 5:59 AM EDT [facility] Chloride 103 98 - 107 mmol/L 04/06/2025 5:59 AM EDT [facility] CO2 24.2 22.0 - 29.0 mmol/L 04/06/2025 5:59 AM EDT [facility] Calcium 8.0(L) 8.6 - 10.5 mg/dL 04/06/2025 5:59 AM EDT [facility] BUN/Creatinine Ratio 16.0 7.0 - 25.0 04/06/2025 5:59 AM EDT [facility] Anion Gap 10.8 5.0 - 15.0 mmol/L 04/06/2025 5:59 AM EDT [facility] eGFR 111.9 >60.0 mL/min/1.7 3 04/06/2025 5:59 AM EDT [facility] Blood Venipuncture / Unknown 04/06/2025 3:42 AM EDT 04/06/2025 5:20 AM EDT [facility] - 04/06/2025 5:59 AM EDT [...] DO LAB BLOOD ORDERABLES Final Resul t [facility]
[address] [place] [address], * (ABNORMAL) CBC Auto Differential (04/06/2025 3:41 AM EDT) WBC 10.86(H) 3.40 - 10.80 10*3/mm3 04/06/2025 5:04 AM EDT [facility] RBC 5.08 4.14 - 5.80 10*6/mm3 04/06/2025 5:04 AM EDT [facility] Hemoglobin 13.9 13.0 - 17.7 g/dL 04/06/2025 5:04 AM EDT [facility] Hematocrit 43.7 37.5 - 51.0 % 04/06/2025 5:04 AM EDT [facility] MCV 86.0 79.0 - 97.0 fL 04/06/2025 5:04 AM [facility] MCH 27.4 26.6 - 33.0 pg 04/06/2025 5:04 AM [facility] MCHC 31.8 31.5 - 35.7 g/dL 04/06/2025 5:04 AM [facility] RDW 12.8 12.3 - 15.4 % 04/06/2025 5:04 AM [facility] RDW-SD 40.0 37.0 - 54.0 fl 04/06/2025 5:04 AM [facility] MPV 11.7 6.0 - 12.0 fL 04/06/2025 5:04 AM [facility] Platelets 115(L) 140 - 450 10*3/mm3 04/06/2025 5:04 AM [facility] Neutrophil % 65.3 42.7 - 76.0 % 04/06/2025 5:04 AM [facility] Lymphocyte % 20.5 19.6 - 45.3 % 04/06/2025 5:04 AM [facility] Monocyte % 11.8 5.0 - 12.0 % 04/06/2025 5:04 AM [facility] Eosinophil % 1.8 0.3 - 6.2 % 04/06/2025 5:04 AM [facility] Basophil % 0.3 0.0 - 1.5 % 04/06/2025 5:04 AM [facility] Immature Grans % 0.3 0.0 - 0.5 % 04/06/2025 5:04 AM [facility] Neutrophils, Absolute 7.09(H) 1.70 - 7.00 10*3/mm3 04/06/2025 5:04 AM [facility] Lymphocytes, Absolute 2.23 0.70 - 3.10 10*3/mm3 04/06/2025 5:04 AM [facility] Monocytes, Absolute 1.28(H) 0.10 - 0.90 10*3/mm3 04/06/2025 5:04 AM EDT [facility] Eosinophils, Absolute 0.20 0.00 - 0.40 10*3/mm3 04/06/2025 5:04 AM EDT [facility] Basophils, Absolute 0.03 0.00 - 0.20 10*3/mm3 04/06/2025 5:04 AM EDT [facility] Immature Grans, Absolute 0.03 0.00 - 0.05 10*3/mm3 04/06/2025 5:04 AM EDT [facility] nRBC 0.0 0.0 - 0.2 /100 WBC 04/06/2025 5:04 AM EDT [facility] Blood Venipuncture / Unknown 04/06/2025 3:41 AM EDT 04/06/2025 4:58 AM EDT Jason Álvarez DO LAB BLOOD ORDERABLES Final Resul t Performing Organization Address City/[facility]/ZIP Co de Phone Number [facility]
[address] [place] [address], [place] [phone] * Heparin Anti-Xa (04/05/2025 8:43 PM EDT) [facility] Heparin Anti-Xa (UFH) 0.38 0.30 - 0.70 IU/ml 04/05/2025 9:09 PM EDT [facility] Blood Venipuncture / Unknown 04/05/2025 8:43 PM EDT 04/05/2025 8:55 PM EDT us [facility] LAB BLOOD ORDERABLES Final Res ult Performing Organization Address City/[facility]/ZIP Co de Phone Number [facility]
[address] [place] [address], [place] [phone] * CK (04/05/2025 12:15 PM EDT) Pathologist [facility] Creatine Kinase 140 20 - 200 U/L 04/05/2025 1:31 PM EDT [facility] Blood Venipuncture / Unknown 04/05/2025 12:15 PM EDT 04/05/2025 1:03 PM EDT Carlton Mead MD LAB BLOOD ORDERABLES Final R esult Performing Organization Address City/[facility]/ZIP Co de Phone Number [facility]
[address] [place] [address], * (ABNORMAL) Heparin Anti-Xa (04/05/2025 12:15 PM EDT) Heparin Anti-Xa (UFH) 0.17(L) 0.30 - 0.70 IU/ml 04/05/2025 1:21 PM EDT [facility] Blood Venipuncture / Unknown 04/05/2025 12:15 PM EDT 04/05/2025 1:04 PM EDT Una Perla PharmD LAB BLOOD ORDERABLES Final R esult [facility]
[address] [place] [address], * (ABNORMAL) aPTT (04/05/2025 3:54 AM EDT) PTT 35.3(L) 60.0 - 90.0 seconds 04/05/2025 4:31 AM EDT [facility] Blood Venipuncture / Unknown 04/05/2025 3:54 AM EDT 04/05/2025 4:15 AM EDT Narrative [facility] - 04/05/2025 4:31 AM EDT PTT = The equivalent PTT values for the therapeutic range of heparin levels at 0.3 to 0.5 U/ml are 60 to 70 seconds. Una Perla PharmD LAB BLOOD ORDERABLES Final R esult [facility]
[address] [place] [address], * Heparin Anti-Xa (04/05/2025 3:54 AM EDT) Pathologist [facility] Heparin Anti-Xa (UFH) 0.30 0.30 - 0.70 IU/ml 04/05/2025 4:32 AM EDT [facility] Blood Venipuncture / Unknown 04/05/2025 3:54 AM EDT 04/05/2025 4:15 AM EDT Una Poke'n CallD LAB BLOOD ORDERABLES Final R esult Performing Organization Address City/[facility]/ZIP Co de Phone Number [facility]
[address] [place] [address], * (ABNORMAL) CBC Auto Differential (04/05/2025 3:54 AM EDT) Pathologist [facility] WBC 11.18(H) 3.40 - 10.80 10*3/mm3 04/05/2025 4:20 AM EDT [facility] RBC 5.00 4.14 - 5.80 10*6/mm3 04/05/2025 4:20 AM EDT [facility] Hemoglobin 13.9 13.0 - 17.7 g/dL 04/05/2025 4:20 AM EDT [facility] Hematocrit 42.4 37.5 - 51.0 % 04/05/2025 4:20 AM EDT [facility] MCV 84.8 79.0 - 97.0 fL 04/05/2025 4:20 AM EDT [facility] MCH 27.8 26.6 - 33.0 pg 04/05/2025 4:20 AM EDT [facility] MCHC 32.8 31.5 [...] 42.7 - 76.0 % 04/05/2025 4:20 AM [facility] Lymphocyte % 14.0(L) 19.6 - 45.3 % 04/05/2025 4:20 AM [facility] Monocyte % 11.0 5.0 - 12.0 % 04/05/2025 4:20 AM [facility] Eosinophil % 0.8 0.3 - 6.2 % 04/05/2025 4:20 AM [facility] Basophil % 0.3 0.0 - 1.5 % 04/05/2025 4:20 AM [facility] Immature Grans % 0.4 0.0 - 0.5 % 04/05/2025 4:20 AM [facility] Neutrophils, Absolute 8.23(H) 1.70 - 7.00 10*3/mm3 04/05/2025 4:20 AM [facility] Lymphocytes, Absolute 1.56 0.70 - 3.10 10*3/mm3 04/05/2025 4:20 AM [facility] Monocytes, Absolute 1.23(H) 0.10 - 0.90 10*3/mm3 04/05/2025 4:20 AM [facility] Eosinophils, Absolute 0.09 0.00 - 0.40 10*3/mm3 04/05/2025 4:20 AM [facility] Basophils, Absolute 0.03 0.00 - 0.20 10*3/mm3 04/05/2025 4:20 AM EDT [facility] Immature Grans, Absolute 0.04 0.00 - 0.05 10*3/mm3 04/05/2025 4:20 AM EDT [facility] nRBC 0.0 0.0 - 0.2 /100 WBC 04/05/2025 4:20 AM EDT [facility] Blood Venipuncture / Unknown 04/05/2025 3:54 AM EDT 04/05/2025 4:16 AM EDT Una Perla PharmD LAB BLOOD ORDERABLES Final R esult [facility]
[address] [place] [address], * (ABNORMAL) Basic Metabolic Panel (04/05/2025 3:54 AM EDT) Glucose 152(H) 65 - 99 mg/dL 04/05/2025 4:40 AM EDT [facility] BUN 17.3 6.0 - 20.0 mg/dL 04/05/2025 4:40 AM EDT [facility] Creatinine 0.92 0.76 - 1.27 mg/dL 04/05/2025 4:40 AM EDT [facility] Sodium 136 136 - 145 mmol/L 04/05/2025 4:40 AM EDT [facility] Potassium 3.9 3.5 - 5.2 mmol/L 04/05/2025 4:40 AM EDT [facility] Chloride 103 98 - 107 mmol/L 04/05/2025 4:40 AM EDT [facility] CO2 24.0 22.0 - 29.0 mmol/L 04/05/2025 4:40 AM EDT [facility] Calcium 7.8(L) 8.6 - 10.5 mg/dL 04/05/2025 4:40 AM EDT [facility] BUN/Creatinine Ratio 18.8 7.0 - 25.0 04/05/2025 4:40 AM EDT [facility] Anion Gap 9.0 5.0 - 15.0 mmol/L 04/05/2025 4:40 AM EDT [facility] eGFR 105.2 >60.0 mL/min/1.7 3 04/05/2025 4:40 AM EDT [facility] Blood Venipuncture / [...] MD LAB BLOOD ORDERABLES Final Re sult [facility]
[address] [place] [address], * (ABNORMAL) aPTT (04/05/2025 12:18 AM EDT) PTT 33.6(L) 60.0 - 90.0 seconds 04/05/2025 12:53 AM EDT [facility] Blood Venipuncture / Unknown 04/05/2025 12:18 AM EDT 04/05/2025 12:37 AM EDT [facility] - 04/05/2025 12:53 AM EDT PTT = The equivalent PTT values for the therapeutic range of heparin levels at 0.3 to 0.5 U/ml are 60 to 70 seconds. [employer] PharmD LAB BLOOD ORDERABLES Final R esult Performing Organization Address City/[facility]/ZIP Co de Phone Number [facility]
[address] [place] [address], * (ABNORMAL) Protime-INR (04/05/2025 12:18 AM EDT) Protime 15.9(H) 12.2 - 15.3 Seconds 04/05/2025 12:53 AM EDT [facility] INR 1.19(H) 0.89 - 1.12 04/05/2025 12:53 AM EDT [facility] Blood Venipuncture / Unknown 04/05/2025 12:18 AM EDT 04/05/2025 12:37 AM EDT [employer] PharmD LAB BLOOD ORDERABLES Final R esult Performing Organization Address [facility] Co de Phone Number [facility]
[address] [place] [address], * Heparin Anti-Xa (04/05/2025 12:18 AM EDT) Pathologist [facility] Heparin Anti-Xa (UFH) 0.39 0.30 - 0.70 IU/ml 04/05/2025 12:54 AM EDT [facility] Blood Venipuncture / Unknown 04/05/2025 12:18 AM EDT 04/05/2025 12:37 AM EDT [employer] PharmD LAB BLOOD ORDERABLES Final R esult Performing Organization Address City/[facility]/ZIP Co de Phone Number [facility]
[address] [place] [address], * MRI Tibia Fibula Right With & [...] MD 04/04/2025 11:00 PM EDT Workstation ID: [id number] Narrative 04/04/2025 11:00 PM EDT MRI TIBIA [...] MD 04/04/2025 11:00 PM EDT Workstation ID: [id number] Leonora Shepherd MD IMG MRI ORDERABLES Final Resu lt * POC Creatinine (04/04/2025 2:49 PM EDT) Creatinine 1.10 0.60 - 1.30 mg/dL 04/07/2025 7:14 PM EDT [facility] Comment:Serial Number: [id number] 7Operator: [id number] Venous Blood 04/04/2025 2:49 PM EDT 04/07/2025 7:14 PM EDT Jason Álvarez DO POINT OF CARE TEST ORDERABLES Fi nal Result [facility]
[address] [place] [address], * (ABNORMAL) CBC Auto Differential (04/04/2025 2:47 PM EDT) [facility] WBC 12.72(H) 3.40 - 10.80 10*3/mm3 04/04/2025 2:56 PM EDT [facility] RBC 5.64 4.14 - 5.80 10*6/mm3 04/04/2025 2:56 PM EDT [facility] Hemoglobin 15.3 13.0 - 17.7 g/dL 04/04/2025 2:56 PM EDT [facility] Hematocrit 47.9 37.5 - 51.0 % 04/04/2025 2:56 PM EDT [facility] MCV 84.9 79.0 - 97.0 fL 04/04/2025 2:56 PM EDT [facility] MCH 27.1 26.6 - 33.0 pg 04/04/2025 2:56 PM EDT [facility] MCHC 31.9 31.5 - 35.7 g/dL 04/04/2025 2:56 PM EDT [facility] RDW 13.1 12.3 - 15.4 % 04/04/2025 2:56 PM EDT [facility] RDW-SD 40.3 37.0 - 54.0 fl 04/04/2025 2:56 PM EDT [facility] MPV 9.4 6.0 - 12.0 fL 04/04/2025 2:56 PM EDT [facility] Platelets 232 140 - 450 10*3/mm3 04/04/2025 2:56 PM EDT [facility] Neutrophil % 74.9 42.7 - 76.0 % 04/04/2025 2:56 PM EDT [facility] Lymphocyte % 13.1(L) 19.6 - 45.3 % 04/04/2025 2:56 PM EDT [facility] Monocyte % 11.2 5.0 - 12.0 % 04/04/2025 2:56 PM EDT [facility] Eosinophil % 0.4 0.3 - 6.2 % 04/04/2025 2:56 PM EDT [facility] Basophil % 0.2 0.0 - 1.5 % 04/04/2025 2:56 PM EDT [facility] Immature Grans % 0.2 0.0 - 0.5 % 04/04/2025 2:56 PM EDT [facility] Neutrophils, Absolute 9.52(H) 1.70 - 7.00 10*3/mm3 04/04/2025 2:56 PM EDT [facility] Lymphocytes, Absolute 1.66 0.70 - 3.10 10*3/mm3 04/04/2025 2:56 PM EDT [facility] Monocytes, Absolute 1.43(H) 0.10 - 0.90 10*3/mm3 04/04/2025 2:56 PM EDT [facility] Eosinophils, Absolute 0.05 0.00 - 0.40 10*3/mm3 04/04/2025 2:56 PM EDT [facility] Basophils, Absolute 0.03 0.00 - 0.20 10*3/mm3 04/04/2025 2:56 PM EDT [facility] Immature Grans, Absolute 0.03 0.00 - 0.05 10*3/mm3 04/04/2025 2:56 PM EDT [facility] nRBC 0.0 0.0 - 0.2 /100 WBC 04/04/2025 2:56 PM EDT [facility] Blood Venipuncture / Unknown 04/04/2025 2:47 PM EDT 04/04/2025 2:52 PM EDT us Mario Crowley DO LAB BLOOD ORDERABLES Fin al Result [facility]
[address] [place] [address], * (ABNORMAL) C-reactive Protein (04/04/2025 2:47 PM EDT) C-Reactive Protein 8.57(H) 0.00 - 0.50 mg/dL 04/04/2025 3:26 PM EDT [facility] Blood Venipuncture / Unknown 04/04/2025 2:47 PM EDT 04/04/2025 2:52 PM EDT [facility] Fin al Result Performing Organization Address City/[facility]/ZIP Co de Phone Number [facility]
[address] [place] [address], * (ABNORMAL) Sedimentation Rate (04/04/2025 2:47 PM EDT) Pathologist [facility] Sed Rate 51(H) 0 - 15 mm/hr 04/04/2025 3:06 PM EDT [facility] Blood Venipuncture / Unknown 04/04/2025 2:47 PM EDT 04/04/2025 2:52 PM EDT [facility] BLOOD ORDERABLES Fin al Result Performing Organization Address City/[facility] Co de Phone Number [facility]
[address] [place] [address], * Comprehensive Metabolic Panel (04/04/2025 2:47 PM EDT) Pathologist [facility] Glucose 90 65 - 99 mg/dL 04/04/2025 3:26 PM EDT [facility] BUN 18.3 6.0 - 20.0 mg/dL 04/04/2025 3:26 PM EDT [facility] Creatinine 0.94 0.76 - 1.27 mg/dL 04/04/2025 3:26 PM EDT [facility] Sodium 136 136 - 145 mmol/L 04/04/2025 3:26 PM EDT [facility] Potassium 3.8 3.5 - 5.2 mmol/L 04/04/2025 3:26 PM EDT [facility] Chloride 100 98 - 107 mmol/L 04/04/2025 3:26 PM EDT [facility] CO2 25.3 22.0 - 29.0 mmol/L 04/04/2025 3:26 PM EDT [facility] Calcium 8.6 8.6 - 10.5 mg/dL 04/04/2025 3:26 PM T [facility] Total Protein 7.3 6.0 - 8.5 g/dL 04/04/2025 3:26 PM EDT [facility] Albumin 4.1 3.5 - 5.2 g/dL 04/04/2025 3:26 PM T [facility] ALT (SGPT) 26 1 - 41 U/L 04/04/2025 3:26 PM [facility] AST (SGOT) 25 1 - 40 U/L 04/04/2025 3:26 PM T [facility] Alkaline Phosphatase 106 39 - 117 U/L 04/04/2025 3:26 PM T [facility] Total Bilirubin 1.0 0.0 - 1.2 mg/dL 04/04/2025 3:26 PM T [facility] Globulin 3.2 gm/dL 04/04/2025 3:26 PM [facility] Comment:Calculated Result A/G Ratio 1.3 g/dL 04/04/2025 3:26 PM [facility] BUN/Creatinine Ratio 19.5 7.0 - 25.0 04/04/2025 3:26 PM [facility] Anion Gap 10.7 5.0 - 15.0 mmol/L 04/04/2025 3:26 PM [facility] eGFR 102.5 >60.0 mL/min/1.7 3 04/04/2025 3:26 PM [facility] Blood Venipuncture / Unknown 04/04/2025 2:47 PM EDT 04/04/2025 2:52 PM EDT [facility] - 04/04/2025 3:26 PM EDT [...] DO LAB BLOOD ORDERABLES Fin al Result [facility]
[address] [place] [address], documented in this encounter Visit Diagnoses Diagnosis [...] BPA Driven Protocol Open Order & Select [facility] Electrolyte Replacement Protocol Algorithm to View [...] BPA Driven Protocol Open Order & [facility] Electrolyte Replacement Protocol Algorithm to View [...] Salazar, KELL)1943 (Given - Provider: Anahy Marcelino, OLIVE PITTER)2129 (Canceled Entry - Provider: Anahy Marcelino OLIVE PITTER - Comment: previously given) 0837 (Given - [...] Hart RN) 100 (Given - Provider: Marguerite Wakeifeld, RN) hydroCHLOROthiazide tablet 12.5 mg 12.5 mg, [...] Continuous Medication Order 04/09/2025 04/10/2025 04/11/2025 heparin 63054 units/250 mL (100 units/mL) in 0.45 % [...] Shirley Hart, RN)2124 (Given - Provider: Alberto Dillno, LU) 1003 (Given - Provider: Marguerite Wakefield [...] BPA Driven Protocol Open Order & [facility] Electrolyte Replacement Protocol Algorithm to View [...] documented as of this encounter Care Teams Pier Hand Relationship Specialty Start Date End Date [place], [place] [address] PCP - General 05/09/23 documented as of this encounter
--- OUTSIDE RECORDS SUMMARY | 2025-04-07 20:36 | XMS_ITS | Encounter Summary ---
Author Organization [facility] Address [address] [place] [address] Care Team Providers Care Assistance Coordinator Name Role Phone Provider, No Known Primary Care Provider Unavail able Reason for Visit * Auth/Cert Specialty Diagnoses / Procedures Referred By Bulmaro muniz Referred To Contact Diagnoses Right BKA infection Referral ID Status Reason Start Date Expiration Date Visits Re quested Visits Authorized [id number] 1 1 Encounter Details Date Type Department Care Team (Late st Contact Info) Description 04/07/2025 8:36 PM EDT Anesthesia Event [facility] OR [address] [place] [address] Luci Alonso DO [address] [place] [address] Anesthesia Record Procedure Summary Procedure Name Responsible [...] drink = 0.6 oz pur e alcohol) [facility] Utilities Answer Date Recorded In the past 12 months has [facility], gas, oil, or water [employer] threatened to shut off services in your [...] PACU on O2NC, breathing comfortably. Report to FLIGHT ATTENDANT at bedside. VSS. 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 ) intravenous induction Anesthetic plan, risks, benefits, and alternatives have been provided, discussed and informed consent has been obtained with: patient. Plan discussed with ENVIRONMENTAL AID. CODE STATUS: Code Status (Patient has no [...] documented as of this encounter Care Teams Assistance Coordinator Relationship Specialty Start Date End Date Provider, No Known [facility] [place] [address] PCP - General 05/09/23 documented as of this encounter
--- OUTSIDE RECORDS SUMMARY | 2025-04-08 14:45 | XMS_ITS | Encounter Summary ---
[facility] Address [address] [place] [address] Care Team Providers Care Snowmobile Mechanic Name Role Phone Provider, No Known Primary Care Provider Unavail able Reason for Visit * Reason Comments Leg Swelling * Auth/Cert Specialty Diagnoses / Procedures Referred By Contac t Referred To Contact Diagnoses Right BKA infection Referral ID Status Reason Start Date Expiration Date Visits Re quested Visits Authorized [id number] 1 1 Encounter Details Date Type Department Care Team (Late st Contact Info) Description 04/08/2025 2:45 PM EDT - 04/08/2025 4:04 PM EDT Surgery OR [address] [place] [address] Sushil Dean Jr., MD [address] [place] [address] [address] [id number] LEG DEBRIDEMENT AND IRRIGATION Social History Tobacco Use Types Packs/Day Years Used Date Smoking Tobacco: Never Smokeless Tobacco: Never Tobacco Cessation:Counseling Given: Not Answered Alcohol Use Standard Drinks/Week Comments Not Currently 0 (1 standard drink = 0.6 oz pur e alcohol) [facility] Utilities Answer Date Recorded In the past 12 months has [employer] electric, gas, oil, or water company threatened [...] 2:25 PM EDT Cherri Grimm RN * [place] Suicide Severity Rating Scale (Screener/Recent Self-Report) Question [...] Date/Time Wound Culture - Swab, Leg, Right [[id number]] (Abnormal) (Susceptibility) Collected: 04/07/252106 Lab Status: Final [...] Units Date/Time FL C Arm During Surgery [[id number]] Resulted: 04/07/252137 Updated: 04/07/252137 Narrative: This procedure was auto-finalized with no dictation required. MRI Tibia Fibula Right With & Without Contrast [[id number]] Collected: 04/07/25 0938 Updated: 04/07/25 1001 Narrative: [...] Buenrostro 04/07/2025 9:58 AM EDT Workstation ID: [id number] MRI Tibia Fibula Right With & Without Contrast [[id number]] Collected: 04/04/252256 Updated: 04/04/252302 Narrative: MRI TIBIA [...] represent a small area of phlegmonous change ([id number] image 10) measuring approximately 1.6 cm which [...] MD 04/04/2025 11:00 PM EDT Workstation ID: [id number] Pending Labs Order Current Status Fungus Culture [...] Male) Date of 1980 Social Security Number [id number] [place] [address] [place] [address] Quaker Unknown Marital Status Unknown Admission Date 04/04/2025 Admission Type Emergency Admitting Provider Jadyn Richardson DO Attending Provider Jadyn Richardson DO Department, Room/Bed 5G, S565/1 Discharge Date Discharge Disposition Discharge [...] Group [place] [id number] Payor Plan Address Payor Plan Phone Number Payor Plan Fax Number Effective Dates [employer] [address] [address] 08/10/2023 - None Entered [facility] [address] Subscriber Name Subscriber Date Member ID WON DENNIS 1980 [id number] Emergency Contacts Lining Sewer (Rel.) Home Phone Work Phone Mobile Phone Avril Dennis (Spouse) -- -- [phone] Robert Hackett (Relative) -- -- [phone] [address]G [address] [facility] [address] Patient: ROOM: [facility] Won Dennis [address] [place] [address] : 1980 SSN: [id number] Sex: M PCP: Provider, No Known Emergency Contact Information Name Relation Home Work Mobile Avril Dennis Spouse [phone] Other Contacts Name Relation Home Work Mobile Robert Hackett Relative [phone] INSURANCE PAYOR PLAN [employer] # SUBSCRIBER ID Primary: Secondary: MEDICARE [place] [id number] Admitting Diagnosis: 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 Outpatient intravenous antibiotic therapy: Daptomycin 800 mg IV daily to be supplied by [facility] 2. Home health to perform [...] INFECTIOUS DISEASE Progress Note Won Dennis 1980 [id number] Date of Consult: 04/10/2025 Admission Date: 04/04/2025 [...] which prompted him to seek treatment at [facility]. He is known to Dr. [...] 05/09/25. HDS, on Heparin gtt. Currently [facility] has been asked to manage the [...] Jr., MD, 20 mg at 04/09/25906 heparin 84512 units/250 mL (100 units/mL) in 0.45 % NaCl infusion, 18 Units/kg/hr, Intravenous, Titrated, Uan Perla, PharmD, Last Rate: 24.1 mL/hr at [...] Units Date/Time FL C Arm During Surgery [[id number]] Resulted: 04/07/252137 Updated: 04/07/252137 Narrative: This procedure was auto-finalized with no dictation required. MRI Tibia Fibula Right With & Without Contrast [[id number]] Collected: 04/07/2538 Updated: 04/07/25 1001 Narrative: MRI [...] Buenrostro 04/07/2025 9:58 AM EDT Workstation ID: [id number] Impression: Recurrent Right BKA stump abscess/cellulitis- this [...] Time: 04/10/251323 Signed Expand All [facility] Medicine Services PROGRESS NOTE Patient Name: Won [...] Date/Time Wound Culture - Swab, Leg, Right [[id number]] (Abnormal) (Susceptibility) Collected: 04/07/252106 Lab Status: Final [...] Row Name 04/06/25 1143 Sit-Stand Transfer Sit-Stand [place] (Transfers) modified independence - Comment, (Sit-Stand Transfer) Pt stood from recliner. Not holding onto walker, pt able to pull his pants up while balancing on his one leg. -LM Row Name 04/06/25 1143 Gait/Stairs (Locomotion) [place] Level (Gait) modified independence - Distance in [...] Motion bilateral lower extremity ROM WFL -LM [facility] Name 04/06/25 1145 Strength Comprehensive (MMT) General Manual Muscle Testing (MMT) Assessment no strength deficits identified BLEs -LM [facility] Name 04/06/25 1145 Balance [...] home at d/c. PT signing off. -LM [facility] Name 04/06/25 1146 Therapy Assessment/Plan (PT) Criteria for Skilled Interventions Met (PT) no;no problems identified which require skilled intervention -LM Therapy Frequency (PT) evaluation only -LM Predicted Duration of Therapy Intervention (PT) Eval Only -LM [facility] Name 04/06/25 1146 Vital Signs Pretreatment Heart Rate (beats/min) 86 -LM Posttreatment Heart Rate (beats/min) 96 -LM Pre SpO2 (%) 95 -LM O2 Delivery Pre Treatment room air -LM Post SpO2 (%) 96 -LM O2 Delivery Post Treatment room air -LM Pre Patient Position Sitting -LM Post Patient Position Sitting -LM [facility] Name 04/06/25 1146 Positioning [...] Nurse Physical Therapy Education Title: PT OT PRODUCTION ILLUSTRATOR Therapies (Done) Topic: Physical Therapy (Done) Point: Mobility training (Done) Learning Progress Summary Patient Acceptance, E, VU,DU by at 04/06/2025 1147 Point: Precautions (Done) Learning Progress Summary Patient Acceptance, E, VU,DU by at 04/06/2025 1147 User Cabrera Initials Effective Dates Name Provider Type [facility] 01/24/25 - Susan Cavazos, PT Physical [...] Description Service Date Service Provider Modifiers Qty [id number] PT EVAL LOW COMPLEXITY 3 04/06/2025 Susan [...] mg Daily 04/05/2025 -- Route: Oral heparin 71523 units/250 mL (100 units/mL) in 0.45 % [...] Dean MD April 21 vs April 22 [facility] [address], [address] [facility], [address] Please schedule at [phone] VONDA Garcia 04/11/25 08:32 EDT Cosigned by [...] Date/Time Wound Culture - Swab, Leg, Right [[id number]] (Abnormal) (Susceptibility) Collected: 04/07/252106 Lab Status: Final [...] mg Daily 04/05/2025 -- Route: Oral heparin 88548 units/250 mL (100 units/mL) in 0.45 % [...] Dean MD April 21 vs April 22 [facility] [address] [facility], [address] [facility], [address] Please schedule at [phone] VONDA Garcia 04/10/25 09:01 EDT Cosigned by Sushil Dean Jr., MD at 04/19/2025 10:33 AM EDT Associated attestation - Sushil Dean Jr., MD - 04/19/2025 10:33 AM EDT I have reviewed this documentation and agree. * Carlton Mead MD - 04/10/2025 7:38 AM EDT Images from the original note were not included. INFECTIOUS DISEASE Progress Note Won Dennis 1980 [id number] Date of Consult: 04/10/2025 Admission Date: 04/04/2025 [...] which prompted him to seek treatment at [facility]. He is known to Dr. [...] 05/09/25. HDS, on Heparin gtt. Currently [facility] has been asked to manage the [...] IRRIGATION; Surgeon: Sushil Dean Jr., MD; Location: [facility] OR; Service: Orthopedics; Laterality: Right; PLACEMENT OF WOUND VAC Right 04/07/2025 Procedure: WOUND VACUUM ASSISTED CLOSURE; Surgeon: Sushil Dean Jr., MD; Location: [facility] OR; Service: Orthopedics; Laterality: Right; WOUND CLOSURE [...] Jr., MD, 20 mg at 04/09/25906 heparin 68739 units/250 mL (100 units/mL) in 0.45 % [...] tablet 10 mg, 10 mg, Oral, Nightly, Suhsil Dean Jr., MD, 10mg at 04/09/252026 oxyCODONE-acetaminophen [...] flush 20 mL, 20 mL, Intravenous, PRAmber, Calrton Mead MD sodium chloride 0.9 % infusion [...] Units Date/Time FL C Arm During Surgery [[id number]] Resulted: 04/07/252137 Updated: 04/07/252137 Narrative: This procedure was auto-finalized with no dictation required. MRI Tibia Fibula Right With & Without Contrast [[id number]] Collected: 04/07/25937 Updated: 04/07/25 100 Narrative: MRI [...] Buenrostro 04/07/2025 9:58 AM EDT Workstation ID: [id number] Impression: Recurrent Right BKA stump abscess/cellulitis- this [...] Date/Time Wound Culture - Swab, Leg, Right [[id number]] (Abnormal) Collected: 04/07/252106 Lab Status: Preliminary result [...] mg Daily 04/05/2025 -- Route: Oral heparin 67175 units/250 mL (100 units/mL) in 0.45 % [...] in 2 weeks for incision check, radiographs [facility] [address] [facility], [address] [facility], [address] Please schedule at [phone] VONDA Garcia 04/09/25 09:18 EDT Cosigned by Sushil Dean Jr., MD at 04/19/2025 10:33 AM EDT Associated attestation - Sushil Dean Jr., MD - 04/19/2025 10:33 AM EDT I have reviewed this documentation and agree. * Carlton Mead MD - 04/09/2025 8:25 AM EDT Images from the original note were not included. INFECTIOUS DISEASE Progress Note Won Dennis 1980 [id number] Date of Consult: 04/09/2025 Admission Date: 04/04/2025 [...] which prompted him to seek treatment at [facility]. He is known to Dr. [...] 05/09/25. HDS, on Heparin gtt. Currently [facility] has been asked to manage the [...] Surgeon: Sushil Dean Jr., MD; Location: [facility]; Service: Orthopedics; Laterality: Right; PLACEMENT OF [...] MD, 20 mg at 04/08/25 0800 heparin 16987 units/250 mL (100 units/mL) in 0.45 % [...] Units Date/Time FL C Arm During Surgery [[id number]] Resulted: 04/07/252137 Updated: 04/07/252137 Narrative: This procedure was auto-finalized with no dictation required. MRI Tibia Fibula Right With & Without Contrast [[id number]] Collected: 04/07/25 0938 Updated: 04/07/25 1001 Narrative: [...] Chitra 04/07/2025 9:58 AM EDT Workstation ID: [id number] Impression: Recurrent Right BKA stump abscess/cellulitis- this [...] daptomycin 5. Infectious disease follow-up with Dr. uRbens Torres I discussed his complex situation in detail with Dr. Dean today. I discussed his complex situation and ongoing therapy with the patient himself today. I discussed his complex situation with Dr. Rubens Torres today-Dr. Torres will see him in infectious disease follow-up Outpatient orders: 1. Outpatient intravenous antibiotic therapy: Daptomycin 800 mg IV daily to be supplied by [facility] 2. Home health to perform [...] Buenrostro 04/07/2025 9:58 AM EDT Workstation ID: [id number] I have personally reviewed the therapy plans: [...] mg Daily 04/05/2025 -- Route: Oral heparin 29208 units/250 mL (100 units/mL) in 0.45 % [...] INFECTIOUS DISEASE Progress Note Won Dennis 1980 [id number] Date of Consult: 04/08/2025 Admission Date: 04/04/2025 [...] which prompted him to seek treatment at [facility]. He is known to Dr. [...] 05/09/25. HDS, on Heparin gtt. Currently [facility] has been asked to manage the [...] Oral, Q6H PRN, 500 mg at 04/06/25 7574 OR acetaminophen (TYLENOL) 160 MG/5ML oral solution [...] Sushil Dena Jr., MD, 2 puff at 04/06/25 190 Calcium Replacement - Follow Nurse / BPA Driven Protocol, , Not Applicable, PRN, Sushil Dean Jr., MD cefTRIAXone (ROCEPHIN) 2,000 mg in sodium chloride 0.9 % 100 mL MBP, 2,000 mg, Intravenous, Q24H, Sushil eDan Jr., MD, Last Rate: 200 mL/hr at [...] Jr., MD, 20 mg at 04/07/25950 heparin 56995 units/250 mL (100 units/mL) in 0.45 % [...] Units Date/Time FL C Arm During Surgery [[id number]] Resulted: 04/07/252137 Updated: 04/07/252137 Narrative: This procedure was auto-finalized with no dictation required. MRI Tibia Fibula Right With & Without Contrast [[id number]] Collected: 04/07/25 0938 Updated: 04/07/25 1001 Narrative: [...] Buenrostro 04/07/2025 9:58 AM EDT Workstation ID: [id number] Impression: Right BKA stump cellulitis- s/p BKA with multiple surgical interventions with Known MRSA 05/09/2025. (Treated by ID in [place] Dr. Harris). Dr. Torres treated him with [...] Buenrostro 04/07/2025 9:58 AM EDT Workstation ID: [id number] I have personally reviewed the therapy plans: [...] INFECTIOUS DISEASE Progress Note Won Dennis 1980 [id number] Date of Consult: 04/07/2025 Admission Date: 04/04/2025 [...] which prompted him to seek treatment at [facility]. He is known to Dr. [...] 05/09/25. HDS, on Heparin gtt. Currently [facility] has been asked to manage the [...] MD, 20 mg at 04/06/25 0900 heparin 16880 units/250 mL (100 units/mL) in 0.45 % [...] With & Without Contrast - In process [[id number]] Resulted: 04/07/25828 Updated: 04/07/25828 This result has not been signed. Information might be incomplete. MRI Tibia Fibula Right With & Without Contrast [[id number]] Collected: 04/04/252256 Updated: 04/04/253 Narrative: MRI TIBIA [...] represent a small area of phlegmonous change ([id number] image 10) measuring approximately 1.6 cm which [...] MD 04/04/2025 11:00 PM EDT Workstation ID: [id number] Impression: Right BKA stump cellulitis- s/p BKA with multiple surgical interventions with Known MRSA 05/09/2025. (Treated by ID in [place] Dr. Harris). Dr. Torres treated him with [...] mg Daily 04/05/2025 -- Route: Oral heparin 58878 units/250 mL (100 units/mL) in 0.45 % [...] MD 04/04/2025 11:00 PM EDT Workstation ID: [id number] I have personally reviewed the therapy plans: [...] mg Daily 04/05/2025 -- Route: Oral heparin 66465 units/250 mL (100 units/mL) in 0.45 % [...] INFECTIOUS DISEASE follow up. Won Dennis 1980 [id number] Date of Consult: 04/06/2025 Admission Date: 04/04/2025 [...] which prompted him to seek treatment at [facility]. He is known to Dr. [...] 05/09/25. HDS, on Heparin gtt. Currently [facility] has been asked to manage the [...] MD, 20 mg at 04/06/25 0900 heparin 71825 units/250 mL (100 units/mL) in 0.45 % [...] Tibia Fibula Right With & Without Contrast [[id number]] Collected: 04/04/252256 Updated: 04/04/252302 Narrative: MRI TIBIA [...] represent a small area of phlegmonous change ([id number] image 10) measuring approximately 1.6 cm which [...] MD 04/04/2025 11:00 PM EDT Workstation ID: [id number] Impression: Right BKA stump cellulitis- s/p BKA with multiple surgical interventions with Known MRSA 05/09/2025. (Treated by ID in [place] Dr. Harris). Dr. Torres treated him with [...] MD 04/04/2025 11:00 PM EDT Workstation ID: [id number] I have personally reviewed the therapy plans: [...] MD 04/04/2025 11:00 PM EDT Workstation ID: [id number] Assessment & Plan Assessment & Plan Won [...] 4FR PICC placed by Rhoda Bonner RN [facility], tip verified by 3CG see LDA. * Sushil Dean Jr., MD - 04/05/2025 8:07 AM EDTAssociated Order(s): IP CONSULT TO ORTHOPEDIC SURGERY [facility], [facility] [address] [address] Orthopedic Consult Patient: Won Dennis Date of Admission: 04/04/2025 4:10 PM Date of : 1980 Attending Physician: Jason Álvarez DO Consulting Physician: Sushil Dean Jr, MD Chief Complaint: 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 male admitted to [facility] with 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]. He has [...] was evaluated in the emergency department in [place], was discharged with instructions for follow-up. He [...] tablet by mouth Daily. 04/03/2025 Morning Lactobacillus-Inulin ([facility]) capsule Take 200 mg by mouth [...] MD 04/04/2025 11:00 PM EDT Workstation ID: [id number] Assessment: Right BKA infection 44-year-old male with [...] DISEASE CONSULT/INITIAL HOSPITAL VISIT Won Dennis 1980 [id number] Date of Consult: 04/05/2025 Admission Date: 04/04/2025 [...] which prompted him to seek treatment at [facility]. He is known to Dr. [...] 05/09/25. HDS, on Heparin gtt. Currently [facility] has been asked to manage the [...] Leonora Shepherd MD, 40 mg at 04/04/25 2177 sennosides-docusate (PERICOLACE) 8.6-50 MG per tablet 2 [...] MD, 20 mg at 04/05/25 09 heparin 39326 units/250 mL (100 units/mL) in 0.45 % [...] Leonora Shepherd MD, 10 mg at 04/04/25 2684 Pharmacy to Dose Heparin, , Not Applicable, [...] Tibia Fibula Right With & Without Contrast [[id number]] Collected: 04/04/252256 Updated: 04/04/252302 Narrative: MRI TIBIA [...] represent a small area of phlegmonous change (zkxmub46 image 10) measuring approximately 1.6 cm which [...] MD 04/04/2025 11:00 PM EDT Workstation ID: [id number] Impression: Right BKA stump cellulitis- s/p BKA with multiple surgical interventions with Known MRSA 05/09/2025. (Treated by ID in [place] Dr. Harris). Dr. Torres treated him with [...] - 04/08/2025 3:51 PM EDT [facility] OPERATIVE REPORT PATIENT NAME: Won Dennis DATE OF : 1980 PREOP DIAGNOSIS: Right Right below-knee amputation infection POSTOP DIAGNOSIS: Same. PROCEDURE: Right Right 24661: Secondary closure below-knee amputation SURGEON: Sushil Dean MD OPERATIVE TEAM: Tanning Wheel Operator: Susi Grullon RN Scrub Person: Mary Paredes Scrub Person Extra: Hortencia Toribio Other: Katt Gotti RN; Charis Neville RN ANESTHETIST: Anesthesiologist: Ulises Hoffman MD SIDE FRAMER: Stan Casillas CRNA Student Nurse Under Cutting Machine Operator: Karol Albert SRNA ANESTHESIA: Choice [...] CULTURE (Canceled) Sushil Dean Jr., MD 04/08/25 0237 Description: RIGHT LEG DEEP WOUND FOR CULTURE [...] Jr., MD - 04/07/2025 9:03 PM EDT [facility], [place] [address] OPERATIVE REPORT PATIENT NAME: Won Dennis DATE OF : 1980 PREOP DIAGNOSIS: Right Right below knee amputation stump infection POSTOP DIAGNOSIS: Same. PROCEDURE: Right Right 82976: Incision and drainage of surgical site infection 66250: Debridement of skin, subcutaneous tissue, muscle 17835: Wound vacuum-assisted closure SURGEON: Sushil Dean MD OPERATIVE TEAM: Tanning Wheel Operator: Anum Sanchez RN Scrub Person: Hortencia Toribio; Gerald Ivey SENIOR PHP DEVELOPER: Anesthesiologist: Luci Alonso DO ANESTHESIA: General [...] ago swellling of the area. seen at [facility] yesterday for CT and US, [...] this chart in the absence of a artificial leather calender operator. No orders to display RADIOLOGY: [x] [...] is discharging home with outpatient infusion at [facility]. He has an appointment with [facility] at 8:00 am tomorrow. They will do PICC line dressing changes. DEBRA has spoke with Dena at [facility] today multiple times to get setup due [...] to get IV ABX at home with [facility]; however, Medicaid lapsed on 04/08. DEBRA was unaware until this morning that Medicaid has lapsed. Patient explained that he has Medicare A and B. CM spoke with KELLEE and given themhis Medicare number [id number], she sent it to Admission. DEBRA spoke with Kerri, with [facility], and explained that he had [...] changes and lab work. DEBRA called Dena [facility] Outpatient infusion center they can accept patient and start him. He is known for their facility. The Facility will need to run it through his insurance first. CM faxed the orders over to [facility] at [phone]. CM will follow up with them tomorrow at [facility] to make sure they received [...] 04/09/2025 2:51 PM EDT Continued Stay Note [facility] Patient Name: Won Dennis Today's Date: 04/09/2025 Admit Date: 04/04/2025 Plan: Home Discharge Plan Row Name 04/09/25 1311 Plan Plan Home Patient/Family in Agreement with Plan yes Plan Comments CM spoke with patient at bedside today. Wheelchair from [employer] is at bedside. Patient getting PICC line [...] note were not included. Discharge Planning Assessment [facility] Patient Name: Won Dennis Today's [...] with family Patient/Family Anticipated Services at Transition continuous pillowcase cuttermanager ct Anticipated family or friend will provide Discharge [...] for home. CM will order wheelchair [facility]. He is not current with home [...] - 10.80 10*3/mm3 04/11/2025 4:02 AM EDT LABORATORY RBC 4.70 4.14 - 5.80 10*6/mm3 04/11/2025 4:02 AM [facility] Hemoglobin 12.8(L) 13.0 - 17.7 g/dL 04/11/2025 4:02 AM [facility] Hematocrit 40.5 37.5 - 51.0 % 04/11/2025 4:02 AM [facility] MCV 86.2 79.0 - 97.0 fL 04/11/2025 4:02 AM [facility] MCH 27.2 26.6 - 33.0 pg 04/11/2025 4:02 AM [facility] MCHC 31.6 31.5 - 35.7 g/dL 04/11/2025 4:02 AM [facility] RDW 12.9 12.3 - 15.4 % 04/11/2025 4:02 AM [facility] RDW-SD 40.5 37.0 - 54.0 fl 04/11/2025 4:02 AM [facility] MPV 9.2 6.0 - 12.0 fL 04/11/2025 4:02 AM [facility] Platelets 267 140 - [...] 0.0 - 1.5 % [facility] Immature Grans % 0.4 0.0 - 0.5 % 04/11/2025 4:02 AM EDT LABORATORY Neutrophils, Absolute 4.69 1.70 - 7.00 10*3/mm3 04/11/2025 4:02 AM EDT LABORATORY Lymphocytes, Absolute 2.07 0.70 - 3.10 10*3/mm3 04/11/2025 4:02 AM EDT LABORATORY Monocytes, Absolute 0.73 0.10 - 0.90 10*3/mm3 04/11/2025 4:02 AM EDT LABORATORY Eosinophils, Absolute 0.32 0.00 - 0.40 10*3/mm3 04/11/2025 4:02 AM EDT LABORATORY Basophils, Absolute 0.03 0.00 - 0.20 10*3/mm3 04/11/2025 4:02 AM EDT LABORATORY Immature Grans, Absolute 0.03 0.00 - 0.05 10*3/mm3 04/11/2025 4:02 AM EDT LABORATORY nRBC 0.0 0.0 - 0.2 /100 WBC 04/11/2025 4:02 AM EDT LABORATORY Blood Venipuncture / Unknown 04/11/2025 3:40 AM EDT 04/11/2025 3:59 AM EDT us Sushil Dean Jr., MD LAB BLOOD ORDERABLES Fi nal Result LABORATORY
[address] [place] [address], * (ABNORMAL) Comprehensive Metabolic Panel (04/11/2025 3:40 AM EDT) Glucose 108(H) 65 - 99 mg/dL 04/11/2025 4:19 AM EDT LABORATORY BUN 12.5 6.0 - 20.0 mg/dL 04/11/2025 4:19 AM EDT LABORATORY Creatinine 0.68(L) 0.76 - 1.27 mg/dL 04/11/2025 4:19 AM [facility] Sodium 140 136 - 145 mmol/L 04/11/2025 4:19 AM [facility] Potassium 3.8 3.5 - 5.2 mmol/L 04/11/2025 4:19 AM [facility] Chloride 105 98 - 107 mmol/L 04/11/2025 4:19 AM [facility] CO2 28.2 22.0 - 29.0 mmol/L 04/11/2025 4:19 AM [facility] Calcium 8.2(L) 8.6 - 10.5 mg/dL 04/11/2025 4:19 AM [facility] Total Protein 6.1 6.0 - 8.5 g/dL 04/11/2025 4:19 AM [facility] Albumin 3.1(L) 3.5 - 5.2 g/dL 04/11/2025 4:19 AM [facility] ALT (SGPT) 52(H) 1 - 41 U/L 04/11/2025 4:19 AM [facility] AST (SGOT) 40 1 - 40 U/L 04/11/2025 4:19 AM [facility] Alkaline Phosphatase 99 39 - 117 U/L 04/11/2025 4:19 AM [facility] Total Bilirubin 0.2 0.0 - 1.2 mg/dL 04/11/2025 4:19 AM [facility] LABORATORY Globulin 3.0 gm/dL 04/11/2025 4:19 AM [facility] Comment:Calculated Result A/G Ratio 1.0 g/dL 04/11/2025 4:19 AM [facility] BUN/Creatinine Ratio 18.4 7.0 - 25.0 04/11/2025 4:19 AM [facility] Anion Gap 6.8 5.0 - 15.0 mmol/L 04/11/2025 4:19 AM [facility] eGFR 117.5 >60.0 mL/min/1.7 3 04/11/2025 4:19 AM EDT LABORATORY Blood Venipuncture / Unknown 04/11/2025 3:40 [...] Hill APRN LAB BLOOD ORDERABLES Final Result LABORATORY
[address] [place] [address], * (ABNORMAL) CBC Auto Differential (04/10/2025 3:46 AM EDT) WBC 9.60 3.40 - 10.80 10*3/mm3 04/10/2025 3:56 AM EDT LABORATORY RBC 4.67 4.14 - 5.80 10*6/mm3 04/10/2025 3:56 AM EDT LABORATORY Hemoglobin 12.9(L) 13.0 - 17.7 g/dL 04/10/2025 3:56 AM EDT LABORATORY Hematocrit 40.1 37.5 - 51.0 % 04/10/2025 3:56 AM EDT LABORATORY MCV 85.9 79.0 - 97.0 fL 04/10/2025 3:56 AM EDT LABORATORY MCH 27.6 26.6 - 33.0 pg 04/10/2025 3:[facility] MCHC 32.2 31.5 - 35.7 g/dL 04/10/2025 3:56 AM EDT LABORATORY RDW 12.9 12.3 - 15.4 % 04/10/2025 3:56 [facility] RDW-SD 40.5 37.0 - 54.0 fl 04/10/2025 3:56 AM EDT LABORATORY MPV 9.5 6.0 - 12.0 fL 04/10/2025 3:56 AM EDT LABORATORY Platelets 227 140 - 450 10*3/mm3 04/10/2025 3:56 AM [facility] Neutrophil % 59.1 42.7 - 76.0 % 04/10/2025 3:56 AM [facility] Lymphocyte % 29.0 19.6 - 45.3 % 04/10/2025 3:56 [facility] Monocyte % 8.1 5.0 - 12.0 % 04/10/2025 3:56 AM [facility] Eosinophil % 3.2 0.3 - 6.2 % 04/10/2025 3:56 AM [facility] Basophil % 0.4 0.0 - 1.5 % 04/10/2025 3:56 AM [facility] Immature Grans % 0.2 0.0 - 0.5 % 04/10/2025 3:56 [facility] Neutrophils, Absolute 5.67 1.70 - 7.00 10*3/mm3 04/10/2025 3:56 [facility] Lymphocytes, Absolute 2.78 0.70 - 3.10 10*3/mm3 04/10/2025 3:56 [facility] Monocytes, Absolute 0.78 0.10 - 0.90 10*3/mm3 04/10/2025 3:56 [facility] Eosinophils, Absolute 0.31 0.00 - 0.40 10*3/mm3 04/10/2025 3:56 AM EDT LABORATORY Basophils, Absolute 0.04 0.00 - 0.20 10*3/mm3 04/10/2025 3:56 AM EDT LABORATORY Immature Grans, Absolute 0.02 0.00 - 0.05 10*3/mm3 04/10/2025 3:56 AM EDT LABORATORY nRBC 0.0 0.0 - 0.2 /100 WBC 04/10/2025 3:56 AM EDT LABORATORY Blood Venipuncture / Unknown 04/10/2025 3:46 AM EDT 04/10/2025 3:53 AM EDT us Jason Álvarez DO LAB BLOOD ORDERABLES Final Resul t LABORATORY
[address] [place] [address], * (ABNORMAL) Basic Metabolic Panel (04/10/2025 3:46 AM EDT) Glucose 125(H) 65 - 99 mg/dL 04/10/2025 4:20 AM EDT LABORATORY BUN 15.9 6.0 - 20.0 mg/dL 04/10/2025 4:20 AM EDT LABORATORY Creatinine 0.77 0.76 - 1.27 mg/dL 04/10/2025 4:20 AM EDT LABORATORY Sodium 137 136 - 145 mmol/L 04/10/2025 4:20 AM EDT LABORATORY Potassium 3.9 3.5 - 5.2 mmol/L 04/10/2025 4:20 AM EDT LABORATORY Chloride 102 98 - 107 mmol/L 04/10/2025 4:20 AM EDT LABORATORY CO2 26.9 22.0 - 29.0 mmol/L 04/10/2025 4:20 AM EDT LABORATORY Calcium 7.9(L) 8.6 - 10.5 mg/dL 04/10/2025 4:20 AM EDT LABORATORY BUN/Creatinine Ratio 20.6 7.0 - 25.0 04/10/2025 4:20 AM EDT LABORATORY Anion Gap 8.1 5.0 - 15.0 mmol/L 04/10/2025 4:20 AM EDT LABORATORY eGFR 113.2 >60.0 mL/min/1.7 3 04/10/2025 4:20 AM EDT LABORATORY Blood Venipuncture / Unknown 04/10/2025 3:46 AM EDT 04/10/2025 3:52 AM EDT Narrative LABORATORY - 04/10/2025 4:20 AM EDT GFR [...] DO LAB BLOOD ORDERABLES Final Resul t LABORATORY
[address] [place] [address], * Heparin Anti-Xa (04/10/2025 3:46 AM EDT) Heparin Anti-Xa (UFH) 0.35 0.30 - 0.70 IU/ml 04/10/2025 4:23 AM EDT LABORATORY Blood Venipuncture / Unknown 04/10/2025 3:46 AM EDT 04/10/2025 3:53 AM EDT Larisa Hamilton [facility] LAB BLOOD ORDERABLES Final R esult LABORATORY
[address] [place] [address], * Heparin Anti-Xa (04/09/2025 10:05 AM EDT) Pathologist [facility] Heparin Anti-Xa (UFH) 0.36 0.30 - 0.70 IU/ml 04/09/2025 11:12 AM EDT LABORATORY Blood Venipuncture / Unknown 04/09/2025 10:05 AM EDT 04/09/2025 10:47 AM EDT Larisa Hamilton [facility] LAB BLOOD ORDERABLES Final R esult LABORATORY
[address] [place] [address], * (ABNORMAL) CBC Auto Differential (04/09/2025 4:18 AM EDT) Pathologist [facility] WBC 11.00(H) 3.40 - 10.80 10*3/mm3 04/09/2025 4:50 AM EDT LABORATORY RBC 4.70 4.14 - 5.80 10*6/mm3 04/09/2025 4:50 AM EDT LABORATORY Hemoglobin 13.0 13.0 - 17.7 g/dL 04/09/2025 4:50 AM EDT LABORATORY Hematocrit 40.4 37.5 - 51.0 % 04/09/2025 4:50 AM EDT LABORATORY MCV 86.0 79.0 - 97.0 fL 04/09/2025 4:50 AM EDT LABORATORY MCH 27.7 26.6 - 33.0 pg 04/09/2025 4:50 AM EDT LABORATORY MCHC 32.2 31.5 - 35.7 g/dL 04/09/2025 4:50 AM EDT LABORATORY RDW 12.8 12.3 - 15.4 % 04/09/2025 4:50 AM [facility] RDW-SD 39.9 37.0 - 54.0 fl 04/09/2025 4:50 AM [facility] MPV 10.0 6.0 - 12.0 fL 04/09/2025 4:50 AM [facility] Platelets 211 140 - 450 10*3/mm3 04/09/2025 4:50 AM [facility] Neutrophil % 74.8 42.7 - 76.0 % 04/09/2025 4:50 AM [facility] Lymphocyte % 15.4(L) 19.6 - 45.3 % 04/09/2025 4:50 AM [facility] Monocyte % 8.5 5.0 - 12.0 % 04/09/2025 4:50 AM [facility] Eosinophil % 0.6 0.3 - 6.2 % 04/09/2025 4:50 AM [facility] Basophil % 0.4 0.0 - 1.5 % 04/09/2025 4:50 AM [facility] Immature Grans % 0.3 0.0 - 0.5 % 04/09/2025 4:50 AM [facility] Neutrophils, Absolute 8.23(H) 1.70 - 7.00 10*3/mm3 04/09/2025 4:50 AM [facility] Lymphocytes, Absolute 1.69 0.70 - 3.10 10*3/mm3 04/09/2025 4:50 AM [facility] Monocytes, Absolute 0.94(H) 0.10 - 0.90 10*3/mm3 04/09/2025 4:50 AM [facility] Eosinophils, Absolute 0.07 0.00 - 0.40 10*3/mm3 04/09/2025 4:50 [facility] Basophils, Absolute 0.04 0.00 - 0.20 10*3/mm3 04/09/2025 4:50 AM EDT LABORATORY Immature Grans, Absolute 0.03 0.00 - 0.05 10*3/mm3 04/09/2025 4:50 AM EDT LABORATORY nRBC 0.0 0.0 - 0.2 /100 WBC 04/09/2025 4:50 AM EDT LABORATORY Blood Venipuncture / Unknown 04/09/2025 4:18 AM EDT 04/09/2025 4:31 AM EDT Sushil Dean Jr., MD LAB BLOOD ORDERABLES Fi nal Result Performing Organization Address City/[facility]/ZIP Co de Phone Number LABORATORY
[address] [place] [address], * Heparin Anti-Xa (04/09/2025 4:18 AM EDT) Heparin Anti-Xa (UFH) 0.41 0.30 - 0.70 IU/ml 04/09/2025 4:53 AM EDT LABORATORY Blood Venipuncture / Unknown 04/09/2025 4:18 AM EDT 04/09/2025 4:31 AM EDT Una LundbergD LAB BLOOD ORDERABLES Final R esult LABORATORY
[address] [place] [address], * (ABNORMAL) Basic Metabolic Panel (04/09/2025 4:18 AM EDT) Glucose 147(H) 65 - 99 mg/dL 04/09/2025 5:33 AM EDT LABORATORY BUN 23.0(H) 6.0 - 20.0 mg/dL 04/09/2025 5:33 AM EDT LABORATORY Creatinine 1.15 0.76 - 1.27 mg/dL 04/09/2025 5:33 AM EDT LABORATORY Sodium 135(L) 136 - 145 mmol/L 04/09/2025 5:33 AM EDT LABORATORY Potassium 4.2 3.5 - 5.2 mmol/L 04/09/2025 5:33 AM EDT LABORATORY Chloride 100 98 - 107 mmol/L 04/09/2025 5:33 AM EDT LABORATORY CO2 26.0 22.0 - 29.0 mmol/L 04/09/2025 5:33 AM EDT LABORATORY Calcium 8.2(L) 8.6 - 10.5 mg/dL 04/09/2025 5:33 AM EDT LABORATORY BUN/Creatinine Ratio 20.0 7.0 - 25.0 04/09/2025 5:33 AM EDT LABORATORY Anion Gap 9.0 5.0 - 15.0 mmol/L 04/09/2025 5:33 AM EDT LABORATORY eGFR 80.5 >60.0 mL/min/1.7 3 04/09/2025 5:33 AM EDT LABORATORY Blood Venipuncture / Unknown 04/09/2025 4:18 [...] MD LAB BLOOD ORDERABLES Fi nal Result LABORATORY
[address] [place] [address], * Wound Culture - Swab, Leg, Right (04/08/2025 3:40 PM EDT) Wound Culture No growth at 3 days ALIZA 04/11/2025 10:40 AM EDT [facility] Gram Stain Few (2+) WBCs seen 04/11/2025 10:40 AM EDT LABORATORY Gram Stain No organisms seen 04/11/2025 10:40 AM EDT LABORATORY Swab Structure of right lower limb / Unknown 04/08/2025 3:40 PM EDT 04/08/2025 8:05 PM EDT us Sushil Dean Jr., MD MICROBIOLOGY - GENERAL ORDERABLES Final Result Performing Organization Address City/[facility]/ZIP Co de Phone Number [facility]
[address] [place] [address], LABORATORY
[address] [place] [address], * Anaerobic Culture - Swab, Leg, Right (04/08/2025 3:40 PM EDT) Anaerobic Culture No anaerobes isolated at 5 days ALIZA 04/13/2025 7:24 AM EDT [facility] Swab Structure of right lower limb / Unknown 04/08/2025 3:40 PM EDT 04/08/2025 8:05 PM EDT us Sushil Dean Jr., MD MICROBIOLOGY - GENERAL ORDERABLES Final Result Performing Organization Address City/[facility]/ZIP Co de Phone Number [facility]
[address] [place] [address], * Scan Slide (04/08/2025 8:41 AM EDT) RBC Morphology Normal Normal 04/08/2025 11:02 AM EDT LABORATORY WBC Morphology Normal Normal 04/08/2025 11:02 AM EDT LABORATORY Platelet Estimate Adequate Normal 04/08/2025 11:02 AM EDT LABORATORY Clumped Platelets Present None Seen 04/08/2025 11:02 AM EDT LABORATORY Blood Venipuncture / Unknown 04/08/2025 8:41 AM EDT 04/08/2025 9:10 AM EDT Una Minda PharmD LAB BLOOD ORDERABLES Final R esult LABORATORY
[address] [place] [address], * (ABNORMAL) CBC Auto Differential (04/08/2025 8:41 AM EDT) WBC 10.07 3.40 - 10.80 10*3/mm3 04/08/2025 11:02 AM EDT LABORATORY RBC 5.01 4.14 - 5.80 10*6/mm3 04/08/2025 11:02 AM EDT LABORATORY Hemoglobin 14.0 13.0 - 17.7 g/dL 04/08/2025 11:02 AM EDT LABORATORY Hematocrit 42.7 37.5 - 51.0 % 04/08/2025 11:02 AM EDT LABORATORY MCV 85.2 79.0 - 97.0 fL 04/08/2025 11:02 AM EDT LABORATORY MCH 27.9 26.6 - 33.0 pg 04/08/2025 11:02 AM EDT LABORATORY MCHC 32.8 31.5 - 35.7 g/dL 04/08/2025 11:02 AM EDT LABORATORY RDW 12.6 12.3 - 15.4 % 04/08/2025 11:02 AM EDT LABORATORY RDW-SD 38.9 37.0 - 54.0 fl [...] 1.70 - 7.00 10*3/mm3 04/08/2025 11:02 AM [facility] Lymphocytes, Absolute 0.94 0.70 - 3.10 10*3/mm3 04/08/2025 11:02 AM [facility] Monocytes, Absolute 0.46 0.10 - 0.90 10*3/mm3 04/08/2025 11:02 AM [facility] Eosinophils, Absolute 0.03 0.00 - 0.40 10*3/mm3 04/08/2025 11:02 AM [facility] Basophils, Absolute 0.02 0.00 - 0.20 10*3/mm3 04/08/2025 11:02 AM [facility] Immature Grans, Absolute 0.05 0.00 - 0.05 10*3/mm3 04/08/2025 11:02 AM EDT LABORATORY nRBC 0.0 0.0 - 0.2 /100 WBC 04/08/2025 11:02 AM EDT LABORATORY Blood Venipuncture / Unknown 04/08/2025 8:41 AM EDT 04/08/2025 9:10 AM EDT Una Perla PharmD LAB BLOOD ORDERABLES Final R esult LABORATORY
[address] [place] [address], * (ABNORMAL) Basic Metabolic Panel (04/08/2025 8:41 AM EDT) Glucose 125(H) 65 - 99 mg/dL 04/08/2025 9:51 AM EDT LABORATORY BUN 13.2 6.0 - 20.0 mg/dL 04/08/2025 9:51 AM EDT LABORATORY Creatinine 0.69(L) 0.76 - 1.27 mg/dL 04/08/2025 9:51 AM EDT LABORATORY Sodium 136 136 - 145 mmol/L 04/08/2025 9:51 AM EDT LABORATORY Potassium 4.6 3.5 - 5.2 mmol/L 04/08/2025 9:51 AM EDT LABORATORY Chloride 102 98 - 107 mmol/L 04/08/2025 9:51 AM EDT LABORATORY CO2 23.5 22.0 - 29.0 mmol/L 04/08/2025 9:51 AM EDT LABORATORY Calcium 8.4(L) 8.6 - 10.5 mg/dL 04/08/2025 9:51 AM EDT LABORATORY BUN/Creatinine Ratio 19.1 7.0 - 25.0 04/08/2025 9:51 AM EDT LABORATORY Anion Gap 10.5 5.0 - 15.0 mmol/L 04/08/2025 9:51 AM EDT LABORATORY eGFR 117.0 >60.0 mL/min/1.7 3 04/08/2025 9:51 AM EDT LABORATORY Blood Venipuncture / Unknown 04/08/2025 8:41 AM EDT 04/08/2025 9:09 AM EDT Narrative LABORATORY - 04/08/2025 9:51 AM EDT GFR [...] [facility]/ZIP Co de Phone Number LABORATORY
[address] [place] [address], * Heparin Anti-Xa (04/08/2025 8:41 AM EDT) Heparin Anti-Xa (UFH) 0.33 0.30 - 0.70 IU/ml 04/08/2025 9:40 AM EDT LABORATORY Blood Venipuncture / Unknown 04/08/2025 8:41 AM EDT 04/08/2025 9:10 AM EDT Sushil Dean Jr., MD LAB BLOOD ORDERABLES Fi nal Result Performing Organization Address City/[facility]/ZIP Co de Phone Number LABORATORY
[address] [place] [address], * FL C Arm During Surgery (04/07/2025 9:32 PM EDT) Narrative SYSTEMGENERATED, DOCUMENTATION - 04/07/2025 9:38 PM EDT This procedure was auto-finalized with no dictation required. us Sushil Dean Jr., MD IMG FLUOROSCOPY ORDERAB LES Final Result * Wound Culture - Swab, Leg, Right (04/07/2025 9:14 PM EDT) Wound Culture No growth at 3 days ALIZA 04/11/2025 10:40 AM EDT [facility] Gram Stain Occasional WBCs seen 04/11/2025 10:40 AM EDT LABORATORY Gram Stain No organisms seen 04/11/2025 10:40 AM EDT LABORATORY Swab Structure of right lower limb / Unknown Collection / Unknown 04/07/2025 9:14 PM EDT 04/08/2025 4:36 AM EDT us Sushil Dean Jr., MD MICROBIOLOGY - GENERAL ORDERABLES Final Result Performing Organization Address City/[facility]/ZIP Co de Phone Number [facility]
[address] [place] [address], [place] [phone] LABORATORY
[address] [place] [address], [place] [phone] * Anaerobic Culture - Swab, Leg, Right (04/07/2025 9:14 PM EDT) Anaerobic Culture No anaerobes isolated at 5 days ALIZA 04/13/2025 7:21 AM EDT [facility] Swab Structure of right lower limb / Unknown Collection / Unknown 04/07/2025 9:14 PM EDT 04/08/2025 4:36 AM EDT us Sushil Dean Jr., MD MICROBIOLOGY - GENERAL ORDERABLES Final Result [facility]
[address] [place] [address], * Anaerobic Culture - Tissue, Leg (04/07/2025 9:13 PM EDT) Anaerobic Culture No anaerobes isolated at 5 days ALIZA 04/13/2025 7:21 AM EDT [facility] Tissue Lower limb structure / Unknown Collection / Unknown 04/07/2025 9:13 PM EDT 04/08/2025 4:54 AM EDT Jason Álvarez DO MICROBIOLOGY - GENERAL ORDERABLE S Final Result Performing Organization Address [facility]/State/ZIP Co de Phone Number [facility]
[address] [place] [address], * Tissue / Bone Culture - Tissue, Leg, Right (04/07/2025 9:13 PM EDT) Tissue Culture No growth at 3 days ALIZA 04/11/2025 10:36 AM EDT [facility] Gram Stain Rare (1+) WBCs seen 04/11/2025 10:36 AM EDT LABORATORY Gram Stain No organisms seen 04/11/2025 10:36 AM EDT LABORATORY Tissue Structure of right lower limb / Unknown 04/07/2025 9:13 PM EDT 04/08/2025 4:54 AM EDT Sushil Dean Jr., MD MICROBIOLOGY - GENERAL ORDERABLES Final Result [facility]
[address] [place] [address], LABORATORY
[address] [place] [address], [place] [phone] * (ABNORMAL) Wound Culture - Swab, Leg, Right (04/07/2025 9:07 PM EDT) Wound Culture Light growth (2+) Staphylococcus aureus, MRSA(A) ALIZA 04/10/2025 10:38 AM EDT [facility] Comment: Methicillin resistant Staphylococcus aureus, Patient may be an isolation risk. Gram Stain Few (2+) WBCs seen 04/10/2025 10:38 AM EDT LABORATORY Gram Stain No organisms seen 10:38 AM EDT LABORATORY Swab Structure of right lower limb [...] MD MICROBIOLOGY - GENERAL ORDERABLES Final Result [facility]
[address] [place] [address], [place] [phone] LABORATORY
[address] [place] [address], [place] [phone] * Anaerobic Culture - Swab, Leg, Right (04/07/2025 9:07 PM EDT) Anaerobic Culture No anaerobes isolated at 5 days ALIZA 04/13/2025 7:21 AM EDT [facility] Swab Structure of right lower limb / Unknown Collection / Unknown 04/07/2025 9:07 PM EDT 04/08/2025 4:36 AM EDT us Sushil Dean Jr., MD MICROBIOLOGY - GENERAL ORDERABLES Final Result [facility]
[address] [place] [address], * Heparin Anti-Xa (04/07/2025 9:10 AM EDT) Pathologist [facility] Heparin Anti-Xa (UFH) 0.30 0.30 - 0.70 IU/ml 04/07/2025 10:12 AM EDT LABORATORY Blood Venipuncture / Unknown 04/07/2025 9:10 AM EDT 04/07/2025 9:38 AM EDT Una Perla PharmD LAB BLOOD ORDERABLES Final R esult Performing Organization Address City/[facility]/ZIP Co de Phone Number LABORATORY
[address] [place] [address], * (ABNORMAL) CBC Auto Differential (04/07/2025 9:10 AM EDT) Pathologist [facility] WBC 8.63 3.40 - 10.80 10*3/mm3 04/07/2025 9:50 AM EDT LABORATORY RBC 5.23 4.14 - 5.80 10*6/mm3 04/07/2025 9:50 AM EDT LABORATORY Hemoglobin 14.7 13.0 - 17.7 g/dL 04/07/2025 9:50 AM EDT LABORATORY Hematocrit 44.8 37.5 - 51.0 % 04/07/2025 9:50 AM EDT LABORATORY MCV 85.7 79.0 - 97.0 fL 04/07/2025 9:50 AM EDT LABORATORY MCH 28.1 26.6 - 33.0 pg 04/07/2025 9:50 AM EDT LABORATORY MCHC 32.8 31.5 - 35.7 g/dL 04/07/2025 9:50 AM EDT LABORATORY RDW 12.8 12.3 - 15.4 % 04/07/2025 9:50 AM [facility] RDW-SD 39.9 37.0 - 54.0 fl 04/07/2025 9:50 AM [facility] MPV 10.8 6.0 - 12.0 fL 04/07/2025 9:50 AM [facility] Platelets 149 140 - 450 10*3/mm3 04/07/2025 9:50 AM [facility] Neutrophil % 66.7 42.7 - 76.0 % 04/07/2025 9:50 AM [facility] Lymphocyte % 20.5 19.6 - 45.3 % 04/07/2025 9:50 AM [facility] Monocyte % 9.8 5.0 - 12.0 % 04/07/2025 9:50 AM [facility] Eosinophil % 2.1 0.3 - 6.2 % 04/07/2025 9:50 AM [facility] Basophil % 0.3 0.0 - 1.5 % 04/07/2025 9:50 AM [facility] Immature Grans % 0.6(H) 0.0 - 0.5 % 04/07/2025 9:50 AM [facility] Neutrophils, Absolute 5.75 1.70 - 7.00 10*3/mm3 04/07/2025 9:50 AM [facility] Lymphocytes, Absolute 1.77 0.70 - 3.10 10*3/mm3 04/07/2025 9:50 AM [facility] Monocytes, Absolute 0.85 0.10 - 0.90 10*3/mm3 04/07/2025 9:50 AM [facility] Eosinophils, Absolute 0.18 0.00 - 0.40 10*3/mm3 04/07/2025 9:50 AM [facility] Basophils, Absolute 0.03 0.00 - 0.20 10*3/mm3 04/07/2025 9:50 AM [facility] Immature Grans, Absolute 0.05 0.00 - 0.05 10*3/mm3 04/07/2025 9:50 AM EDT LABORATORY nRBC 0.0 0.0 - 0.2 /100 WBC 04/07/2025 9:50 AM EDT LABORATORY Blood Venipuncture / Unknown 04/07/2025 9:10 AM EDT 04/07/2025 9:38 AM EDT us Jason Álvarez DO LAB BLOOD ORDERABLES Final Resul t LABORATORY
[address] [place] [address], * (ABNORMAL) Basic Metabolic Panel (04/07/2025 9:10 AM EDT) Glucose 112(H) 65 - 99 mg/dL 04/07/2025 10:19 AM EDT LABORATORY BUN 13.1 6.0 - 20.0 mg/dL 04/07/2025 10:19 AM EDT LABORATORY Creatinine 0.77 0.76 - 1.27 mg/dL 04/07/2025 10:19 AM EDT LABORATORY Sodium 139 136 - 145 mmol/L 04/07/2025 10:19 AM EDT LABORATORY Potassium 4.2 3.5 - 5.2 mmol/L 04/07/2025 10:19 AM EDT LABORATORY Comment:Specimen hemolyzed. Result may be falsely elevated. Chloride 105 98 - 107 mmol/L 04/07/2025 10:19 AM EDT LABORATORY CO2 24.8 22.0 - 29.0 mmol/L 04/07/2025 10:19 AM EDT LABORATORY Calcium 8.6 8.6 - 10.5 mg/dL 04/07/2025 10:19 AM EDT LABORATORY BUN/Creatinine Ratio 17.0 7.0 - 25.0 04/07/2025 10:19 AM EDT LABORATORY Anion Gap 9.2 5.0 - 15.0 mmol/L 04/07/2025 10:19 AM EDT LABORATORY eGFR 113.2 >60.0 mL/min/1.7 3 04/07/2025 10:19 AM EDT LABORATORY Blood Venipuncture / Unknown 04/07/2025 9:10 AM EDT 04/07/2025 9:38 AM EDT Narrative LABORATORY - 04/07/2025 10:19 AM EDT GFR [...] DO LAB BLOOD ORDERABLES Final Resul t LABORATORY
[address] [place] [address], * MRI Tibia Fibula Right With & [...] [place] 04/07/2025 9:58 AM EDT Workstation ID: [id number] Narrative 04/07/2025 9:58 AM EDT MRI TIBIA [...] [place] 04/07/2025 9:58 AM EDT Workstation ID: [id number] Sushil Dean Jr., MD IMG MRI ORDERABLES Mary Beth l Result * Heparin Anti-Xa (04/07/2025 1:42 AM EDT) [facility] Heparin Anti-Xa (UFH) 0.38 0.30 - 0.70 IU/ml 04/07/2025 2:14 AM EDT LABORATORY Blood Venipuncture / Unknown 04/07/2025 1:42 AM EDT 04/07/2025 1:54 AM EDT [facility] Final R esult LABORATORY
[address] [place] [address], * Heparin Anti-Xa (04/06/2025 7:16 PM EDT) [facility] Heparin Anti-Xa (UFH) 0.33 0.30 - 0.70 IU/ml 04/06/2025 7:50 PM EDT LABORATORY Blood Venipuncture / Unknown 04/06/2025 7:16 PM EDT 04/06/2025 7:35 PM EDT Cherri Beatty [facility] LAB BLOOD ORDERABLES Final Res ult Performing Organization Address [facility] Co de Phone Number LABORATORY
[address] [place] [address], * Potassium (04/06/2025 7:16 PM EDT) [facility] Potassium 4.0 3.5 - 5.2 mmol/L 04/06/2025 7:53 PM EDT LABORATORY Blood Venipuncture / Unknown 04/06/2025 7:16 PM EDT 04/06/2025 7:35 PM EDT Jason Álvarez DO LAB BLOOD ORDERABLES Final Resul t Performing Organization Address [facility] de Phone Number LABORATORY
[address] [place] [address], * (ABNORMAL) Heparin Anti-Xa (04/06/2025 12:36 PM EDT) [facility] Heparin Anti-Xa (UFH) 0.24(L) 0.30 - 0.70 IU/ml 04/06/2025 1:23 PM EDT LABORATORY Blood Venipuncture / Unknown 04/06/2025 12:36 PM EDT 04/06/2025 1:07 PM EDT Una Perla PharmD LAB BLOOD ORDERABLES Final R esult Performing Organization Address [facility] Co de Phone Number LABORATORY
[address] [place] [address], * (ABNORMAL) Heparin Anti-Xa (04/06/2025 3:42 AM EDT) [facility] Heparin Anti-Xa (UFH) 0.25(L) 0.30 - 0.70 IU/ml 04/06/2025 5:30 AM EDT LABORATORY Blood Venipuncture / Unknown 04/06/2025 3:42 AM EDT 04/06/2025 4:59 AM EDT Chelsie Dyana [facility] LAB BLOOD ORDERABLES Final R esult LABORATORY
[address] [place] [address], * (ABNORMAL) Basic Metabolic Panel (04/06/2025 3:42 AM EDT) [facility] Glucose 94 65 - 99 mg/dL 04/06/2025 5:59 AM EDT LABORATORY BUN 12.8 6.0 - 20.0 mg/dL 04/06/2025 5:59 AM EDT LABORATORY Creatinine 0.80 0.76 - 1.27 mg/dL 04/06/2025 5:59 AM EDT LABORATORY Sodium 138 136 - 145 mmol/L 04/06/2025 5:59 AM EDT LABORATORY Potassium 3.6 3.5 - 5.2 mmol/L 04/06/2025 5:59 AM EDT LABORATORY Chloride 103 98 - 107 mmol/L 04/06/2025 5:59 AM EDT LABORATORY CO2 24.2 22.0 - 29.0 mmol/L 04/06/2025 5:59 AM EDT LABORATORY Calcium 8.0(L) 8.6 - 10.5 mg/dL 04/06/2025 5:59 AM EDT LABORATORY BUN/Creatinine Ratio 16.0 7.0 - 25.0 04/06/2025 5:59 AM EDT LABORATORY Anion Gap 10.8 5.0 - 15.0 mmol/L 04/06/2025 5:59 AM EDT LABORATORY eGFR 111.9 >60.0 mL/min/1.7 3 04/06/2025 5:59 AM EDT LABORATORY Blood Venipuncture / Unknown 04/06/2025 3:42 [...] DO LAB BLOOD ORDERABLES Final Resul t LABORATORY
[address] [place] [address], * (ABNORMAL) CBC Auto Differential (04/06/2025 3:41 AM EDT) WBC 10.86(H) 3.40 - 10.80 10*3/mm3 04/06/2025 5:04 AM EDT LABORATORY RBC 5.08 4.14 - 5.80 10*6/mm3 04/06/2025 5:04 AM EDT LABORATORY Hemoglobin 13.9 13.0 - 17.7 g/dL 04/06/2025 5:04 AM EDT LABORATORY Hematocrit 43.7 37.5 - 51.0 % 04/06/2025 5:04 AM EDT LABORATORY MCV 86.0 79.0 - 97.0 fL [facility] MCH 27.4 26.6 - 33.0 pg 04/06/2025 5:04 AM [facility] LABORATORY MCHC 31.8 31.5 - 35.7 g/dL 04/06/2025 5:04 AM [facility] LABORATORY RDW 12.8 12.3 - 15.4 % 04/06/2025 5:04 AM [facility] LABOR[facility]ORY RDW-SD 40.0 37.0 - 54.0 fl 04/06/2025 5:04 AM [facility] LAB[facility] MPV 11.7 6.0 - 12.0 fL 04/06/2025 5:04 AM [facility] LABOR[facility] Platelets 115(L) 140 - 450 10*3/mm3 04/06/2025 5:04 AM [facility] Neutrophil % 65.3 42.7 - 76.0 % 04/06/2025 5:04 AM [facility] Lymphocyte % 20.5 19.6 - 45.3 % 04/06/2025 5:04 AM [facility] Monocyte % 11.8 5.0 - 12.0 % 04/06/2025 5:04 AM [facility] Eosinophil % 1.8 0.3 - 6.2 % 04/06/2025 5:04 AM [facility] Basophil % 0.3 0.0 - 1.5 % 04/06/2025 5:[facility] Immature Grans % 0.3 0.0 - 0.5 % 04/06/2025 5:04 AM [facility] LABOR[facility] Neutrophils, Absolute 7.09(H) 1.70 - 7.00 10*3/mm3 04/06/2025 5:[facility] Lymphocytes, Absolute 2.23 0.70 - 3.10 10*3/mm3 04/06/2025 5:04 [facility] Monocytes, Absolute 1.28(H) 0.10 - 0.90 10*3/mm3 04/06/2025 5:04 AM EDT LABORATORY Eosinophils, Absolute 0.20 0.00 - 0.40 10*3/mm3 04/06/2025 5:04 AM EDT LABORATORY Basophils, Absolute 0.03 0.00 - 0.20 10*3/mm3 04/06/2025 5:04 AM EDT LABORATORY Immature Grans, Absolute 0.03 0.00 - 0.05 10*3/mm3 04/06/2025 5:04 AM EDT LABORATORY nRBC 0.0 0.0 - 0.2 /100 WBC 04/06/2025 5:04 AM EDT LABORATORY Blood Venipuncture / Unknown 04/06/2025 3:41 AM EDT 04/06/2025 4:58 AM EDT Jason Álvarez DO LAB BLOOD ORDERABLES Final Resul t Performing Organization Address City/[facility] Co de Phone Number LABORATORY
[address] [place] [address], [place] [phone] * Heparin Anti-Xa (04/05/2025 8:43 PM EDT) Pathologist [facility] Heparin Anti-Xa (UFH) 0.38 0.30 - 0.70 IU/ml 04/05/2025 9:09 PM EDT LABORATORY Blood Venipuncture / Unknown 04/05/2025 8:43 PM EDT 04/05/2025 8:55 PM EDT us [facility] ORDER[facility] Final Res ult Performing Organization Address City/[facility] Co de Phone Number LABORATORY
[address] [place] [address], [place] [phone] * CK (04/05/2025 12:15 PM EDT) Creatine Kinase 140 20 - 200 U/L 04/05/2025 1:31 PM EDT LABORATORY Blood Venipuncture / Unknown 04/05/2025 12:15 PM EDT 04/05/2025 1:03 PM EDT Carlton Mead MD LAB BLOOD ORDERABLES Final R esult Performing Organization Address City/[facility]/ZIP Co de Phone Number LABORATORY
[address] [place] [address], * (ABNORMAL) Heparin Anti-Xa (04/05/2025 12:15 PM EDT) [facility] Heparin Anti-Xa (UFH) 0.17(L) 0.30 - 0.70 IU/ml 04/05/2025 1:21 PM EDT LABORATORY Blood Venipuncture / Unknown 04/05/2025 12:15 PM EDT 04/05/2025 1:04 PM EDT Una Perla PharmD LAB BLOOD ORDERABLES Final R esult Performing Organization Address City/[facility] Co de Phone Number LABORATORY
[address] [place] [address], * (ABNORMAL) aPTT (04/05/2025 3:54 AM EDT) [facility] PTT 35.3(L) 60.0 - 90.0 seconds 04/05/2025 4:31 AM EDT LABORATORY Blood Venipuncture / Unknown 04/05/2025 3:54 AM EDT 04/05/2025 4:15 AM EDT Narrative LABORATORY - 04/05/2025 4:31 AM EDT PTT = The equivalent PTT values for the therapeutic range of heparin levels at 0.3 to 0.5 U/ml are 60 to 70 seconds. [employer] LAB BLOOD ORDERABLES Final R esult LABORATORY
[address] [place] [address], * Heparin Anti-Xa (04/05/2025 3:54 AM EDT) Pathologist [facility] Heparin Anti-Xa (UFH) 0.30 0.30 - 0.70 IU/ml 04/05/2025 4:32 AM EDT LABORATORY Blood Venipuncture / Unknown 04/05/2025 3:54 AM EDT 04/05/2025 4:15 AM EDT [employer] LAB BLOOD ORDERABLES Final R esult Performing Organization Address City/[facility]/ZIP Co de Phone Number LABORATORY
[address] [place] [address], * (ABNORMAL) CBC Auto Differential (04/05/2025 3:54 AM EDT) [facility] WBC 11.18(H) 3.40 - 10.80 10*3/mm3 04/05/2025 4:20 AM EDT LABORATORY RBC 5.00 4.14 - 5.80 10*6/mm3 04/05/2025 4:20 AM EDT LABORATORY Hemoglobin 13.9 13.0 - 17.7 g/dL 04/05/2025 4:20 AM EDT LABORATORY Hematocrit 42.4 37.5 - 51.0 % 04/05/2025 4:20 AM EDT LABORATORY MCV 84.8 79.0 - 97.0 fL 04/05/2025 4:20 AM EDT LABORATORY MCH 27.8 26.6 - 33.0 pg 04/05/2025 4:20 AM EDT LABORATORY MCHC 32.8 31.5 - 35.7 g/dL [...] 42.7 - 76.0 % 04/05/2025 4:20 AM [facility] Lymphocyte % 14.0(L) 19.6 - 45.3 % 04/05/2025 4:20 AM [facility] Monocyte % 11.0 5.0 - 12.0 % 04/05/2025 4:20 AM [facility] Eosinophil % 0.8 0.3 - 6.2 % 04/05/2025 4:20 AM [facility] Basophil % 0.3 0.0 - 1.5 % 04/05/2025 4:20 AM [facility] Immature Grans % 0.4 0.0 - 0.5 % 04/05/2025 4:20 AM [facility] Neutrophils, Absolute 8.23(H) 1.70 - 7.00 10*3/mm3 04/05/2025 4:20 AM [facility] Lymphocytes, Absolute 1.56 0.70 - 3.10 10*3/mm3 04/05/2025 4:20 AM [facility] Monocytes, Absolute 1.23(H) 0.10 - 0.90 10*3/mm3 04/05/2025 4:20 AM [facility] Eosinophils, Absolute 0.09 0.00 - 0.40 10*3/mm3 04/05/2025 4:20 AM [facility] Basophils, Absolute 0.03 0.00 - 0.20 10*3/mm3 04/05/2025 4:20 AM EDT LABORATORY Immature Grans, Absolute 0.04 0.00 - 0.05 10*3/mm3 04/05/2025 4:20 AM EDT LABORATORY nRBC 0.0 0.0 - 0.2 /100 WBC 04/05/2025 4:20 AM EDT LABORATORY Blood Venipuncture / Unknown 04/05/2025 3:54 AM EDT 04/05/2025 4:16 AM EDT Una Perla PharmD LAB BLOOD ORDERABLES Final R esult LABORATORY
[address] [place] [address], * (ABNORMAL) Basic Metabolic Panel (04/05/2025 3:54 AM EDT) Glucose 152(H) 65 - 99 mg/dL 04/05/2025 4:40 AM EDT LABORATORY BUN 17.3 6.0 - 20.0 mg/dL 04/05/2025 4:40 AM EDT LABORATORY Creatinine 0.92 0.76 - 1.27 mg/dL 04/05/2025 4:40 AM EDT LABORATORY Sodium 136 136 - 145 mmol/L 04/05/2025 4:40 AM EDT LABORATORY Potassium 3.9 3.5 - 5.2 mmol/L 04/05/2025 4:40 AM EDT LABORATORY Chloride 103 98 - 107 mmol/L 04/05/2025 4:40 AM EDT LABORATORY CO2 24.0 22.0 - 29.0 mmol/L 04/05/2025 4:40 AM EDT LABORATORY Calcium 7.8(L) 8.6 - 10.5 mg/dL 04/05/2025 4:40 AM EDT LABORATORY BUN/Creatinine Ratio 18.8 7.0 - 25.0 04/05/2025 4:40 AM EDT LABORATORY Anion Gap 9.0 5.0 - 15.0 mmol/L 04/05/2025 4:40 AM EDT LABORATORY eGFR 105.2 >60.0 mL/min/1.7 3 04/05/2025 4:40 AM EDT LABORATORY Blood Venipuncture / Unknown 04/05/2025 3:54 [...] MD LAB BLOOD ORDERABLES Final Re sult LABORATORY
[address] [place] [address], * (ABNORMAL) aPTT (04/05/2025 12:18 AM EDT) PTT 33.6(L) 60.0 - 90.0 seconds 04/05/2025 12:53 AM EDT LABORATORY Blood Venipuncture / Unknown 04/05/2025 12:18 AM EDT 04/05/2025 12:37 AM EDT [facility] LABORATORY - 04/05/2025 12:53 AM EDT PTT = The equivalent PTT values for the therapeutic range of heparin levels at 0.3 to 0.5 U/ml are 60 to 70 seconds. Beijing Booksir PharmD LAB BLOOD ORDERABLES Final R esult LABORATORY
[address] [place] [address], [place] [phone] * (ABNORMAL) Protime-INR (04/05/2025 12:18 AM EDT) Protime 15.9(H) 12.2 - 15.3 Seconds 04/05/2025 12:53 AM EDT LABORATORY INR 1.19(H) 0.89 - 1.12 04/05/2025 12:53 AM EDT LABORATORY Blood Venipuncture / Unknown 04/05/2025 12:18 AM EDT 04/05/2025 12:37 AM EDT [employer] PharmD LAB BLOOD ORDERABLES Final R esult Performing Organization Address [facility] Co de Phone Number LABORATORY
[address] [place] [address], [place] [phone] * Heparin Anti-Xa (04/05/2025 12:18 AM EDT) Pathologist [facility] Heparin Anti-Xa (UFH) 0.39 0.30 - 0.70 IU/ml 04/05/2025 12:54 AM EDT LABORATORY Blood Venipuncture / Unknown 04/05/2025 12:18 AM EDT 04/05/2025 12:37 AM EDT [employer] PharmD LAB BLOOD ORDERABLES Final R esult Performing Organization Address City/[facility]/ZIP Co de Phone Number LABORATORY
[address] [place] [address], [place] [phone] * MRI Tibia Fibula Right With & [...] MD 04/04/2025 11:00 PM EDT Workstation ID: [id number] Narrative 04/04/2025 11:00 PM EDT MRI TIBIA [...] MD 04/04/2025 11:00 PM EDT Workstation ID: [id number] Leonora Shepherd MD IMG MRI ORDERABLES Final Resu lt * POC Creatinine (04/04/2025 2:49 PM EDT) Creatinine 1.10 0.60 - 1.30 mg/dL 04/07/2025 7:14 PM EDT LABORATORY Comment:Serial Number: [id number] 7Operator: [id number] Venous Blood 04/04/2025 2:49 PM EDT 04/07/2025 7:14 PM EDT Jason Álvarez DO POINT OF CARE TEST ORDERABLES Fi nal Result LABORATORY
[address] [place] [address], [place] [phone] * (ABNORMAL) CBC Auto Differential (04/04/2025 2:47 PM EDT) [facility] Signature WBC 12.72(H) 3.40 - 10.80 10*3/mm3 04/04/2025 2:56 PM EDT LABORATORY RBC 5.64 4.14 - 5.80 10*6/mm3 04/04/2025 2:56 PM EDT LABORATORY Hemoglobin 15.3 13.0 - 17.7 g/dL 04/04/2025 2:56 PM EDT LABORATORY Hematocrit 47.9 37.5 - 51.0 % 04/04/2025 2:56 PM EDT LABORATORY MCV 84.9 79.0 - 97.0 fL 04/04/2025 2:56 PM EDT LABORATORY MCH 27.1 26.6 - 33.0 pg 04/04/2025 2:56 PM EDT LABORATORY MCHC 31.9 31.5 - 35.7 g/dL 04/04/2025 2:56 PM EDT LABORATORY RDW 13.1 12.3 - 15.4 % 04/04/2025 2:56 PM EDT LABORATORY RDW-SD 40.3 37.0 - 54.0 fl 04/04/2025 2:56 PM EDT LABORATORY MPV 9.4 6.0 - 12.0 fL 04/04/2025 2:56 PM EDT LABORATORY Platelets 232 140 - 450 10*3/mm3 04/04/2025 2:56 PM EDT LABORATORY Neutrophil % 74.9 42.7 - 76.0 % 04/04/2025 2:56 PM EDT LABORATORY Lymphocyte % 13.1(L) 19.6 - 45.3 % 04/04/2025 2:56 PM EDT LABORATORY Monocyte % 11.2 5.0 - 12.0 % 04/04/2025 2:56 PM EDT LABORATORY Eosinophil % 0.4 0.3 - 6.2 % 04/04/2025 2:56 PM EDT LABORATORY Basophil % 0.2 0.0 - 1.5 % 04/04/2025 2:56 PM EDT LABORATORY Immature Grans % 0.2 0.0 - 0.5 % 04/04/2025 2:56 PM EDT LABORATORY Neutrophils, Absolute 9.52(H) 1.70 - 7.00 10*3/mm3 04/04/2025 2:56 PM EDT LABORATORY Lymphocytes, Absolute 1.66 0.70 - 3.10 10*3/mm3 04/04/2025 2:56 PM EDT LABORATORY Monocytes, Absolute 1.43(H) 0.10 - 0.90 10*3/mm3 04/04/2025 2:56 PM EDT LABORATORY Eosinophils, Absolute 0.05 0.00 - 0.40 10*3/mm3 04/04/2025 2:56 PM EDT LABORATORY Basophils, Absolute 0.03 0.00 - 0.20 10*3/mm3 04/04/2025 2:56 PM EDT LABORATORY Immature Grans, Absolute 0.03 0.00 - 0.05 10*3/mm3 04/04/2025 2:56 PM EDT LABORATORY nRBC 0.0 0.0 - 0.2 /100 WBC 04/04/2025 2:56 PM EDT LABORATORY Blood Venipuncture / Unknown 04/04/2025 2:47 PM EDT 04/04/2025 2:52 PM EDT us Mario Crowley DO LAB BLOOD ORDERABLES Fin al Result LABORATORY
[address] [place] [address], * (ABNORMAL) C-reactive Protein (04/04/2025 2:47 PM EDT) Pathologist [facility] C-Reactive Protein 8.57(H) 0.00 - 0.50 mg/dL 04/04/2025 3:26 PM EDT LABORATORY Blood Venipuncture / Unknown 04/04/2025 2:47 PM EDT 04/04/2025 2:52 PM EDT Mario Ortiz Keo LAB BLOOD ORDERABLES Fin al Result LABORATORY
[address] [place] [address], * (ABNORMAL) Sedimentation Rate (04/04/2025 2:47 PM EDT) [facility] Sed Rate 51(H) 0 - 15 mm/hr 04/04/2025 3:06 PM EDT LABORATORY Blood Venipuncture / Unknown 04/04/2025 2:47 PM EDT 04/04/2025 2:52 PM EDT Mario Ortiz Keo LAB BLOOD ORDERABLES Fin al Result Performing Organization Address City/[facility]/ZIP Co de Phone Number LABORATORY
[address] [place] [address], * Comprehensive Metabolic Panel (04/04/2025 2:47 PM EDT) [facility] Glucose 90 65 - 99 mg/dL 04/04/2025 3:26 PM EDT LABORATORY BUN 18.3 6.0 - 20.0 mg/dL 04/04/2025 3:26 PM EDT LABORATORY Creatinine 0.94 0.76 - 1.27 mg/dL 04/04/2025 3:26 PM EDT LABORATORY Sodium 136 136 - 145 mmol/L 04/04/2025 3:26 PM EDT LABORATORY Potassium 3.8 3.5 - 5.2 mmol/L 04/04/2025 3:26 PM EDT LABORATORY Chloride 100 98 - 107 mmol/L 04/04/2025 3:26 PM EDT LABORATORY CO2 25.3 22.0 - 29.0 mmol/L 04/04/2025 3:26 PM EDT LABORATORY Calcium 8.6 8.6 - 10.5 mg/dL 04/04/2025 3:26 PM EDT LABORATORY Total Protein 7.3 6.0 - 8.5 g/dL 04/04/2025 3:26 PM EDT LABORATORY Albumin 4.1 3.5 - 5.2 g/dL 04/04/2025 3:26 PM EDT LABORATORY ALT (SGPT) 26 1 - 41 U/L 04/04/2025 3:26 PM EDT LABORATORY AST (SGOT) 25 1 - 40 U/L 04/04/2025 3:26 PM EDT LABORATORY Alkaline Phosphatase 106 39 - 117 U/L 04/04/2025 3:26 PM T LABORATORY Total Bilirubin 1.0 0.0 - 1.2 mg/dL 04/04/2025 3:26 PM EDT LABORATORY Globulin 3.2 gm/dL 04/04/2025 3:26 PM T LABORATORY Comment:Calculated Result A/G Ratio 1.3 g/dL 04/04/2025 3:26 PM EDT LABORATORY BUN/Creatinine Ratio 19.5 7.0 - 25.0 04/04/2025 3:26 PM T LABORATORY Anion Gap 10.7 5.0 - 15.0 mmol/L 04/04/2025 3:26 PM T LABORATORY eGFR 102.5 >60.0 mL/min/1.7 3 04/04/2025 3:26 PM [facility] LAB[facility] Blood Venipuncture / Unknown 04/04/2025 2:47 PM EDT 04/04/2025 2:52 PM EDT Narrative LABORATORY - 04/04/2025 3:26 PM EDT GFR [...] DO LAB BLOOD ORDERABLES Fin al Result LABORATORY
[address] [place] [address], documented in this encounter Visit Diagnoses Diagnosis [...] Salazar, KELL)1943 (Given - Provider: Anahy Marcelino, FUEL AGENT)[id number] (Canceled Entry - Provider: Anahy Marcelino FUEL AGENT - Comment: previously given) 0837 (Given - [...] for a lower pain scale. 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
--- OUTSIDE RECORDS SUMMARY | 2025-04-08 15:34 | XMS_ITS | Encounter Summary ---
Author Organization [facility] Address [address] [place] [address] Care Team Providers Care Cable Technician Name Role Phone Provider, No Known Primary Care Provider Unavail able Reason for Visit * Auth/Cert Specialty Diagnoses / Procedures Referred By Bulmaro muniz Referred To Contact Diagnoses Right BKA infection Referral ID Status Reason Start Date Expiration Date Visits Re quested Visits Authorized [id number] 1 1 Encounter Details Date Type Department Care Team (Late st Contact Info) Description 04/08/2025 3:34 PM EDT Anesthesia Event [facility] OR [address] [place] [address] Ulises Hoffman MD [address] [place] [address] Jairo Brooks MD [address] [place] [address] Anesthesia Record Procedure Summary Procedure Name Responsible [...] 0.6 oz pur e alcohol) [facility] Utilities Answer Date Recorded In the past 12 months has [employer], oil, or water [facility] threatened to shut off services in your [...] Date: 04/08/25 Room / Location: [facility] OR [address] [place] [address] [facility] [place] Anesthesia Start: 1533 Anesthesia Stop: [...] ROS Abdominal Substance History - negative use 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
--- OUTSIDE RECORDS SUMMARY | 2025-04-26 09:31 | XMS_ITS | Clinical Summary ---
Author Organization [facility] Address [address] [place] [address] Phone Care Team Providers Care Software Engineer Backend Name Role Phone Unavailable Unavailable Conditions or Problems No information available. Medications No information available. Medications Administered No information available. Allergies, Adverse Reactions, Alerts No information available. Results No information available. Plan of Care No information available. Procedures No information available. Vital Signs No information available. Immunizations No information available. Advance Directives No information available.
--- OUTSIDE RECORDS SUMMARY | 2025-04-26 09:31 | XMS_ITS | Patient Health Record ---
[facility] [address] [place] [id number] Care Team Providers Care Store Stocker Name Role Phone Zeeshan Salazar Primary Care Provider [phone] Allergies No Known Allergies Medications Medication SIG [...] W/U Status Risk Notes Problem Essential hypertension (34730396) HTN [Hypertension] (401.9) Active confirmed appears resolved Problem Hypothyroidism (81270437) Hypothyroidism NOS (244.9) Active confirmed Problem Hyperlipidemia (98325768) Hyperlipidemia (272.4) Active confirmed Problem Constipation (60888400) Constipation, unspecified constipation type (K59.00) Active confirmed Problem History of pulmonary embolism on long-term anticoagulation therapy (21754356611964273 ) Hx pulmonary embolism (Z86.711) Active confirmed Problem Long-term current use of anticoagulant (833315366) Current use of oysterman anticoagulation (Z79.01) Active confirmed Problem Adjustment disorder with anxious mood (95277264) Adjustment disorder with anxious mood (F43.22) Active confirmed Problem History of pulmonary embolus (973869086) History of pulmonary embolus (PE) (Z86.711) Active confirmed Problem Methicillin resistant Staphylococcus aureus infection (disorder) (894885121) Infection of wound due to methicillin resistant Staphylococcus aureus (MRSA) (A49.02) Active confirmed Problem Arthritis of knee (675561653) Arthritis of knee (M17.10) Active confirmed Problem Amputated below knee (922485193) Status post below knee amputation of right lower extremity (Z89.511) Active confirmed Problem Gastroesophageal reflux disease (569220532) Gastroesophageal reflux disease, unspecified whether esophagitis present [...]
--- OUTSIDE RECORDS SUMMARY | 2025-04-26 09:31 | XMS_ITS | Data Portability ---
Author Organization [place] [facility] [place] [facility] ADMIN Address [address] [place] [id number] Care Team Providers Care Records And Tape Recordings Engineer Name Role Phone SYBIL WILLIAM Primary Care Provider Assessment No assessment recorded. Plan of Treatment Reminders Order Date Submit Date Provider Last Modified By Organization Details Last Modified Time Details Appointments Establish ed Visit 15 min 2024 10:45A Jadyn Torres MD Not available Not available Not available Lab C-reactiv e protein, quantitat nasim, serum or plasma [address] Lab, [address] [facility], [place], [address], 05/02/2024 17:36:31 ESR (erythroc yte sedimenta tion rate), blood [address] Lab, [address] [facility], [place], [address], 05/02/2024 17:36:31 C-reactiv e protein, quantitat nasim, serum or plasma 2023 [address]24 [place] [address] [facility], [address], [address], [place], [address], 11/01/2023 08:08:32 ESR (erythroc yte sedimenta tion rate), blood 2023 024 [place] [address] [facility], [address], [address], [place], [address], 11/01/2023 08:08:32 CBC w/ auto diff 2023 024 [facility], [address] [facility], [place], [address], 10/24/2023 16:12:13 CMP, serum or plasma 2023 024 [facility], [address] [facility], [place], [address], 10/24/2023 16:42:07 CBC w/ auto diff 2023 024 [facility], [address] [facility], [place], [address], 07/25/2023 15:22:25 CMP, serum or plasma 2023 024 [facility], [address] [facility], [place], [address], 07/25/2023 16:32:05 prothromb in (factor II) 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 Procedures None recorded. Surgeries None recorded. Imaging None recorded. Medication Orders doxycycli ne hyclate 100 mg capsule 2023 024 [facility], [address] [place] [address], [address], [place], [address], 10/25/2023 09:18:27 Patient TargetsNo targets recorded. Patient InstructionsNo instructions recorded. Reason for Referral None Reported. Results Created Date Observation Date Name Description Value Unit Range Abnormal Flag Note LastModifiedBy Organization Detail LastModifiedTime 07/06/20 23 07/07/2023 COMP. METAB OLIC PANEL (14) glucose 92 mg/dL 70-99 Not Available [facility] ([facility]) [address] [place], [address], 07/07/2023 13:08:40 07/06/20 23 07/07/2023 COMP. METAB OLIC PANEL (14) BUN 18 mg/dL 6-24 Not Available [facility] ([facility]) [address] [place], [address], 07/07/2023 13:08:40 07/06/20 23 07/07/2023 COMP. METAB OLIC PANEL (14) creatinine 0.85 mg/dL 0.76-1 .27 Not Available [facility] ([facility]) [address] [place], [address], 07/07/2023 13:08:40 07/06/20 23 07/07/2023 COMP. METAB OLIC PANEL (14) eGFR 111 mL/mi n/1.7 3 >59 Not Available [facility] ([facility]) [address] [place], [address], 07/07/2023 13:08:40 07/06/20 23 07/07/2023 COMP. METAB OLIC PANEL (14) BUN/creatini ne ratio 21 9-20 above high normal Not Available [facility] ([facility]) [address] [place], [address], 07/07/2023 13:08:40 07/06/20 23 07/07/2023 COMP. METAB OLIC PANEL (14) sodium 140 mmol/ L 134-14 4 Not Available [facility] ([facility]) [address] [facility] [place], [address], 07/07/2023 13:08:40 07/06/20 23 07/07/2023 COMP. METAB OLIC PANEL (14) potassium 4.1 mmol/ L 3.5-5. 2 Not Available [facility] ([facility]) [address] [facility], [place], [address], 07/07/2023 13:08:40 07/06/20 23 07/07/2023 COMP. METAB OLIC PANEL (14) chloride 105 mmol/ L 96-106 Not Available [facility] ([facility]) [address] [facility], [place], [address], 07/07/2023 13:08:40 07/06/20 23 07/07/2023 COMP. METAB OLIC PANEL (14) carbon dioxide, total 22 mmol/ L - Not Available [facility] ([facility]) [address] [facility] [place], [address], 07/07/2023 13:08:40 07/06/20 23 07/07/2023 COMP. METAB OLIC PANEL (14) calcium 8.9 mg/dL 8.7-10 .2 Not Available [facility] ([facility]) [address] [facility], [place], [address], 07/07/2023 13:08:40 07/06/20 23 07/07/2023 COMP. METAB OLIC PANEL (14) protein, total 7.3 g/dL 6.0-8. 5 Not Available [facility] ([facility]) [address] [facility] [place], [address], 07/07/2023 13:08:40 07/06/20 23 07/07/2023 COMP. METAB OLIC PANEL (14) albumin 4.3 g/dL 4.1-5. 1 Not Available [facility] ([facility]) [address] [facility] [place], [address], 07/07/2023 13:08:40 07/06/20 23 07/07/2023 COMP. METAB OLIC PANEL (14) globulin, total 3.0 g/dL 1.5-4. 5 Not Available [facility] ([facility]) [address] [facility] [place], [address], 07/07/2023 13:08:40 07/06/20 23 07/07/2023 COMP. METAB OLIC PANEL (14) A/G ratio 1.4 1.2-2. 2 Not Available [facility] ([facility]) [address] [facility] [place], [address], 07/07/2023 13:08:40 07/06/20 23 07/07/2023 COMP. METAB OLIC PANEL (14) bilirubin, total 0.3 mg/dL 0.0-1. 2 Not Available [facility] ([facility]) [address] [facility] [place], [address], 07/07/2023 13:08:40 07/06/20 23 07/07/2023 COMP. METAB OLIC PANEL (14) alkaline phosphatase 85 IU/L 44-121 Not Available [facility] ([facility]) [address] [facility] [place], [address], 07/07/2023 13:08:40 07/06/20 23 07/07/2023 COMP. METAB OLIC PANEL (14) AST (SGOT) 24 IU/L 0-40 Not Available [facility] ([facility]) [address] [facility] [place], [address], 07/07/2023 13:08:40 07/06/20 23 07/07/2023 COMP. METAB OLIC PANEL (14) ALT (SGPT) 25 IU/L 0-44 Not Available [facility] ([facility]) [address] [facility], [place], [address], 07/07/2023 13:08:40 07/06/20 23 07/07/2023 SEDIM ENTAT ION RATE- WESTE RGREN sedimentatio n rate-westerg los 28 mm/HR 0-15 above high normal Not Available [facility] ([facility]) [address] [facility], [place], [address], 07/07/2023 13:08:42 07/06/20 23 07/07/2023 C-CHANA CTIVE PROTE IN, QUANT C-reactive protein, quant 11 mg/L 0-10 above high normal Not Available [facility] ([facility]) [address] [facility], [place], [address], 07/07/2023 13:08:43 07/25/19 24 07/25/2023 CBC AUTO W DIFF WBC 6.7 K/uL 4.0-10 .5 Not Available [facility] ([facility]) [address] [facility], [place], [address], 07/25/2023 15:22:25 07/25/19 24 07/25/2023 CBC AUTO W DIFF RBC 5.7 M/mm3 4.7-6. 1 Not Available [facility] ([facility]) [address] [facility], [place], [address], 07/25/2023 15:22:25 07/25/19 24 07/25/2023 CBC AUTO W DIFF HGB 14.8 gm/dL 13.5-1 8.0 Not Available [facility] ([facility]) [address] [place], [address], 07/25/2023 15:22:25 07/25/19 24 07/25/2023 CBC AUTO W DIFF HCT 45.4 % 42.0-5 2.0 Not Available [facility] ([facility]) [address] [place], [address], 07/25/2023 15:22:25 07/25/19 24 07/25/2023 CBC AUTO W DIFF MCV 79.6 fL 78-100 Not Available [facility] ([facility]) [address], [place], [address], 07/25/2023 15:22:25 07/25/19 24 07/25/2023 CBC AUTO W DIFF MCH 26.0 pg 27-31 low Not Available [facility] ([facility]) [address], [place], [address], 07/25/2023 15:22:25 07/25/19 24 07/25/2023 CBC AUTO W DIFF MCHC 32.6 g/dL 32-36 Not Available [facility] ([facility]) [address], [place], [address], 07/25/2023 15:22:25 07/25/19 24 07/25/2023 CBC AUTO W DIFF RDW 13.7 % 11.5-1 4.0 Not Available [facility] ([facility]) [address] , [place], [address], 07/25/2023 15:22:25 07/25/19 24 07/25/2023 CBC AUTO W DIFF platelet count 279 K/uL 150-45 0 Not Available [facility] ([facility]) [address] , [place], [address], 07/25/2023 15:22:25 07/25/19 24 07/25/2023 CBC AUTO W DIFF MPV 10.0 fL 6-9.5 high Not Available [facility] ([facility]) [address] , [place], [address], 07/25/2023 15:22:25 07/25/19 24 07/25/2023 CBC AUTO W DIFF neutrophil% 61.2 % 43-65 Not Available [facility] ([facility]) [address] , [place], [address], 07/25/2023 15:22:25 07/25/19 24 07/25/2023 CBC AUTO W DIFF lymphocyte% 25.7 % 20.5-4 5.5 Not Available [facility] ([facility]) [address], [place], [address], 07/25/2023 15:22:25 07/25/19 24 07/25/2023 CBC AUTO W DIFF monocyte% 9.2 % 5.5-11 .7 Not Available [facility] ([facility]) [address], [place], [address], 07/25/2023 15:22:25 07/25/19 24 07/25/2023 CBC AUTO W DIFF eosinophil% 3.0 % 0.9-2. 9 high Not Available [facility] ([facility]) [address], [place], [address], 07/25/2023 15:22:25 07/25/19 24 07/25/2023 CBC AUTO W DIFF basophil% 0.6 % 0.2-1. 0 Not Available [facility] ([facility]) [address], [place], [address], 07/25/2023 15:22:25 07/25/19 24 07/25/2023 CBC AUTO W DIFF immature granulocytes % 0.3 % 0.0-0. 8 Not Available [facility] ([facility]) [address], [place], [address], 07/25/2023 15:22:25 07/25/19 24 07/25/2023 CBC AUTO W DIFF nucleated red blood cells % 0.0 % Not Available [facility] ([facility]) [address] [place], [address], 07/25/2023 15:22:25 07/25/19 24 07/25/2023 CBC AUTO W DIFF neutrophil# 4.1 K/uL 2.2-4. 8 Not Available [facility] ([facility]) [address] [facility], [place], [address], 07/25/2023 15:22:25 07/25/19 24 07/25/2023 CBC AUTO W DIFF lymphocyte# 1.7 cell/ mcL 1.3-2. 9 Not Available [facility] ([facility]) [address] [facility], [place], [address], 07/25/2023 15:22:25 07/25/19 24 07/25/2023 CBC AUTO W DIFF monocyte# 0.6 cell/ mcL 0.3-0. 8 Not Available [facility] ([facility]) [address] [facility], [place], [address], 07/25/2023 15:22:25 07/25/19 24 07/25/2023 CBC AUTO W DIFF eosinophil# 0.2 cell/ mcL 0-0.2 Not Available [facility] ([facility]) [address] [facility], [place], [address], 07/25/2023 15:22:25 07/25/19 24 07/25/2023 CBC AUTO W DIFF basophil# 0.0 cell/ mcL 0.0-1. 0 Not Available [facility] ([facility]) [address] [place], [address], 07/25/2023 15:22:25 07/25/19 24 07/25/2023 CBC AUTO W DIFF immature gramulocytes # 0.02 K/uL Not Available [facility] ([facility]) [address] [place], [address], 07/25/2023 15:22:25 07/25/19 24 07/25/2023 CBC AUTO W DIFF nucleated red blood cells # 0.00 K/uL Not Available [facility] ([facility]) [address] [place], [address], 07/25/2023 15:22:25 07/25/19 24 07/25/2023 CBC AUTO W DIFF manual differential NO Not Available [facility] ([facility]) [address], [place], [address], 07/25/2023 15:22:25 07/25/19 24 07/25/2023 PT (PROT HROMB IN TIME) W INR prothrombin time 11.0 secon ds 9.3-11 .4 Not Available [facility] ([facility]) [address], [place], [address], 07/25/2023 16:27:47 07/25/19 24 07/25/2023 PT (PROT [...] Valve s Not Available [facility] ([facility]) [address] , [place], [address], 07/25/2023 16:27:47 07/25/19 24 07/25/2023 COMP METAB OLIC PANEL sodium 142 mmol/ L 136-14 5 Not Available [facility] ([facility]) [address] , [place], [address], 07/25/2023 16:32:05 07/25/19 24 07/25/2023 COMP METAB OLIC PANEL potassium 3.7 mmol/ L 3.6-5. 0 Not Available [facility] ([facility]) [address] , [place], [address], 07/25/2023 16:32:05 07/25/19 24 07/25/2023 COMP METAB OLIC PANEL chloride 104 mmol/ L 98-107 Not Available [facility] ([facility]) [address], [place], [address], 07/25/2023 16:32:05 07/25/19 24 07/25/2023 COMP METAB OLIC PANEL carbon dioxide 29.1 mmol/ L 21.0-3 2.0 Not Available [facility] ([facility]) [address], [place], [address], 07/25/2023 16:32:05 07/25/19 24 07/25/2023 COMP METAB OLIC PANEL anion gap 12.6 Not Available [facility] ([facility]) [address], [place], [address], 07/25/2023 16:32:05 07/25/19 24 07/25/2023 COMP METAB OLIC PANEL glucose 85 mg/dL 70-120 Not Available [facility] ([facility]) [address] , [place], [address], 07/25/2023 16:32:05 07/25/19 24 07/25/2023 COMP METAB OLIC PANEL BUN 16 mg/dL 7-18 Not Available [facility] ([facility]) [address], [place], [address], 07/25/2023 16:32:05 07/25/19 24 07/25/2023 COMP METAB OLIC PANEL creatinine 0.8 mg/dL 0.6-1. 3 Not Available [facility] ([facility]) [address] , [place], [address], 07/25/2023 16:32:05 07/25/19 24 07/25/2023 COMP METAB OLIC PANEL glomerular filtration rate >60 mlper min 60- Not Available [facility] ([facility]) [address] , [place], [address], 07/25/2023 16:32:05 07/25/19 24 07/25/2023 COMP METAB OLIC PANEL total protein 7.6 g/dL 6.4-8. 2 Not Available [facility] ([facility]) [address], [place], [address], 07/25/2023 16:32:05 07/25/19 24 07/25/2023 COMP METAB OLIC PANEL albumin 3.5 g/dL 3.4-5. 0 Not Available [facility] ([facility]) [address] , [place], [address], 07/25/2023 16:32:05 07/25/19 24 07/25/2023 COMP METAB OLIC PANEL globulin 4.1 Not Available [facility] ([facility]) [address] , [place], [address], 07/25/2023 16:32:05 07/25/19 24 07/25/2023 COMP METAB OLIC PANEL alb/glob ratio 0.9 0.7-2 Not Available [facility] ([facility]) [address] , [place], [address], 07/25/2023 16:32:05 07/25/19 24 07/25/2023 COMP METAB OLIC PANEL calcium 8.8 mg/dL 8.5-10 .5 Not Available [facility] ([facility]) [address] , [place], [address], 07/25/2023 16:32:05 07/25/19 24 07/25/2023 COMP METAB OLIC PANEL bilirubin total 0.40 mg/dL 0.10-1 .00 Not Available [facility] ([facility]) [address] , [place], [address], 07/25/2023 16:32:05 07/25/19 24 07/25/2023 COMP METAB OLIC PANEL AST (SGOT) 24 U/L 0-37 Not Available [facility] ([facility]) [address] , [place], [address], 07/25/2023 16:32:05 07/25/19 24 07/25/2023 COMP METAB OLIC PANEL ALT (SGPT) 27 U/L 0-65 Not Available [facility] ([facility]) [address], [place], [address], 07/25/2023 16:32:05 07/25/19 24 07/25/2023 COMP METAB OLIC PANEL alk phosphatase 74 U/L 46-116 Not Available [facility]) [address], [place], [address], 07/25/2023 16:32:05 07/25/19 24 07/27/2023 FACTO R VIII (8) ACTIV ITY factor VIII (8) activity 159 % 56-140 high [facility] [place] [address] [id number] Lab Direc tor: Linda ho MD, Phone : [phone] Not Available [facility] ([facility]) [address] [facility], [place], [address], 07/27/2023 06:19:41 07/25/19 24 07/27/2023 PROTE IN C FUNTI ONAL protein C functional 102 % 73-180 Perfo rmed at: [facility] - [facility] [place] [address] [place] [address] [facility] Lab Direc tor: Linda ho MD, Phone : [phone] Not Available [facility] ([facility]) [address] [facility], [place], [address], 07/27/2023 06:19:42 07/25/19 24 07/27/2023 PROTE IN [...] at: [facility] [place] [address] , [place] [address] Lab Direc tor: Linda ho MD, Phone : [phone] Not Available [facility] ([facility]) [address], [place], [address], 07/27/2023 06:19:43 07/25/19 24 08/03/2023 FACTO R [...] Facto r V Leide n (PMID : 15596 767). Ad ditio nal risk facto rs [...] ders to discu ss resul ts at [phone] GENE (8151 ). . Test Detai ls: Varia nt holly zed: c.*97 G>A, previ ously refer red to as G2021 0 A . Metho ds/Li mitat ions: DNA holly sis of the F2 gene ([id number]) was perfo rmed by P CR [...] e lindy cteri stics deter mined by [email or web address] rp. It has not been clear ed or appro raquel by the Food and Drug Admin istra tion. . Refer ences : Fernanda Macias, Russ FULTON, Sammy Ho, Radha KING, Lucas in ; [facility] Pro fessi onal Pract ice and Guide lines Commi ttee. Adden dum: Rubio morley e of Medic al Briseyda ics conse nsus state ment on facto r V Leide n muta tion testi ng. Brise[employer]da Med. 2020Sep 11. doi: 10.10 38/s4 1436- 021-0 110 8-x. PMID: 81239 767. . Randi BOYD. Proth rombi n Throm bophi za. 2005Jan 31 Updat ed 2020Aug 13 . In: Ricki MP, Bhaskar contreras HH, Mary RA, et al., edito rs. GeneR bassamw s(R) Inter net . Shyam gipson ([place]): Unive rsity of Shyam Lowery; 1992- 2020. Avail able from: https ://ignacio w.ncb i.nlm .nih. gov/b ooks/ NBK11 48/ . Rick Macias, Russ FULTON, Audi X, Amaury B, Spect or EB, Evelyn P, Joel lemus CS; [facility] Labor atory Quali ty Assur ance Commi ttee. Venou s throm ad mboli sm labor atory testi ng (fact or V Leide n and facto r II c.*97 G>A), 2018 updat e: a techn ical stand guy of the Ameri can Colle ge of Medic al Briseyda ics and Genom ics ([employer] ). Brise[employer]da Med. 2018 Jun;2 0(12) :148 9-149 8. doi: 10.10 38/s4 1436- 018-0 322-z . Epub 2017Apr 13. PMID: 08546 698. Not Available [facility] ([facility]) [address], [place], [address], 08/03/2023 13:12:27 07/25/19 24 08/03/2023 FACTO R II, DNA HOLLY SIS reviewed by: Tacho camp, PhD Direc tor, Molec ular Briseyda ics Perfo rmed at: [facility] [address] , [place] [address] Lab Direc tor: Yaneth Sullivan [facility] , Phone : [phone] Not Available [facility] ([facility]) [address] , [place], [address], 08/03/2023 13:12:27 10/24/19 24 10/24/2023 CBC AUTO W DIFF WBC 6.9 K/uL 4.0-10 .5 Not Available [facility] ([facility]) [address] , [place], [address], 10/24/2023 16:12:13 10/24/19 24 10/24/2023 CBC AUTO W DIFF RBC 5.7 M/mm3 4.7-6. 1 Not Available [facility] ([facility]) [address] , [place], [address], 10/24/2023 16:12:13 10/24/19 24 10/24/2023 CBC AUTO W DIFF HGB 14.7 gm/dL 13.5-1 8.0 Not Available [facility] ([facility]) [address] , [place], [address], 10/24/2023 16:12:13 10/24/19 24 10/24/2023 CBC AUTO W DIFF HCT 46.0 % 42.0-5 2.0 Not Available [facility] ([facility]) [address], [place], [address], 10/24/2023 16:12:13 10/24/19 24 10/24/2023 CBC AUTO W DIFF MCV 80.4 fL 78-100 Not Available [facility] ([facility]) [address] , [place], [address], 10/24/2023 16:12:13 10/24/19 24 10/24/2023 CBC AUTO W DIFF MCH 25.7 pg 27-31 low Not Available [facility] ([facility]) [address] , [place], [address], 10/24/2023 16:12:13 10/24/19 24 10/24/2023 CBC AUTO W DIFF MCHC 32.0 g/dL 32-36 Not Available [facility] ([facility]) [address] , [place], [address], 10/24/2023 16:12:13 10/24/19 24 10/24/2023 CBC AUTO W DIFF RDW 14.3 % 11.5-1 4.0 high Not Available [facility] ([facility]) [address] , [place], [address], 10/24/2023 16:12:13 10/24/19 24 10/24/2023 CBC AUTO W DIFF platelet count 258 K/uL 150-45 0 Not Available [facility] ([facility]) [address] , [place], [address], 10/24/2023 16:12:13 10/24/19 24 10/24/2023 CBC AUTO W DIFF MPV 9.6 fL 6-9.5 high Not Available [facility] ([facility]) [address] , [place], [address], 10/24/2023 16:12:13 10/24/19 24 10/24/2023 CBC AUTO W DIFF neutrophil% 70.1 % 43-65 high Not Available [facility] ([facility]) [address], [place], [address], 10/24/2023 16:12:13 10/24/19 24 10/24/2023 CBC AUTO W DIFF lymphocyte% 18.4 % 20.5-4 5.5 low Not Available [facility] ([facility]) [address], [place], [address], 10/24/2023 16:12:13 10/24/19 24 10/24/2023 CBC AUTO W DIFF monocyte% 8.7 % 5.5-11 .7 Not Available [facility] ([facility]) [address], [place], [address], 10/24/2023 16:12:13 10/24/19 24 10/24/2023 CBC AUTO W DIFF eosinophil% 2.3 % 0.9-2. 9 Not Available [facility] ([facility]) [address], [place], [address], 10/24/2023 16:12:13 10/24/19 24 10/24/2023 CBC AUTO W DIFF basophil% 0.4 % 0.2-1. 0 Not Available [facility] ([facility]) [address] [place], [address], 10/24/2023 16:12:13 10/24/19 24 10/24/2023 CBC AUTO W DIFF immature granulocytes % 0.1 % 0.0-0. 8 Not Available [facility] ([facility]) [address] [place], [address], 10/24/2023 16:12:13 10/24/19 24 10/24/2023 CBC AUTO W DIFF nucleated red blood cells % 0.0 % Not Available [facility] ([facility]) [address] [facility], [place], [address], 10/24/2023 16:12:13 10/24/19 24 10/24/2023 CBC AUTO W DIFF neutrophil# 4.8 K/uL 2.2-4. 8 Not Available [facility] ([facility]) [address], [place], [address], 10/24/2023 16:12:13 10/24/19 24 10/24/2023 CBC AUTO W DIFF lymphocyte# 1.3 cell/ mcL 1.3-2. 9 Not Available [facility] ([facility]) [address], [place], [address], 10/24/2023 16:12:13 10/24/19 24 10/24/2023 CBC AUTO W DIFF monocyte# 0.6 cell/ mcL 0.3-0. 8 Not Available [facility] ([facility]) [address], [place], [address], 10/24/2023 16:12:13 10/24/19 24 10/24/2023 CBC AUTO W DIFF eosinophil# 0.2 cell/ mcL 0-0.2 Not Available [facility] ([facility]) [address], [place], [address], 10/24/2023 16:12:13 10/24/19 24 10/24/2023 CBC AUTO W DIFF basophil# 0.0 cell/ mcL 0.0-1. 0 Not Available [facility] ([facility]) [address], [place], [address], 10/24/2023 16:12:13 10/24/19 24 10/24/2023 CBC AUTO W DIFF immature gramulocytes # 0.01 K/uL Not Available [facility] ([facility]) [address], [place], [address], 10/24/2023 16:12:13 10/24/19 24 10/24/2023 CBC AUTO W DIFF nucleated red blood cells # 0.00 K/uL Not Available [facility] ([facility]) [address], [place], [address], 10/24/2023 16:12:13 10/24/19 24 10/24/2023 CBC AUTO W DIFF manual differential NO Not Available [facility] ([facility]) [address], [place], [address], 10/24/2023 16:12:13 10/24/19 24 10/24/2023 COMP METAB OLIC PANEL sodium 139 mmol/ L 136-14 5 Not Available [facility] ([facility]) [address], [place], [address], 10/24/2023 16:42:07 10/24/19 24 10/24/2023 COMP METAB OLIC PANEL potassium 4.0 mmol/ L 3.6-5. 0 Not Available [facility] ([facility]) [address], [place], [address], 10/24/2023 16:42:07 10/24/19 24 10/24/2023 COMP METAB OLIC PANEL chloride 104 mmol/ L 98-107 Not Available [facility] ([facility]) [address], [place], [address], 10/24/2023 16:42:07 10/24/19 24 10/24/2023 COMP METAB OLIC PANEL carbon dioxide 28.1 mmol/ L 21.0-3 2.0 Not Available [facility] ([facility]) [address], [place], [address], 10/24/2023 16:42:07 10/24/19 24 10/24/2023 COMP METAB OLIC PANEL anion gap 10.9 Not Available [facility] ([facility]) [address] , [place], [address], 10/24/2023 16:42:07 10/24/19 24 10/24/2023 COMP METAB OLIC PANEL glucose 99 mg/dL 70-120 Not Available [facility] ([facility]) [address] , [place], [address], 10/24/2023 16:42:07 10/24/19 24 10/24/2023 COMP METAB OLIC PANEL BUN 16 mg/dL 7-18 Not Available [facility] ([facility]) [address] , [place], [address], 10/24/2023 16:42:07 10/24/19 24 10/24/2023 COMP METAB OLIC PANEL creatinine 0.9 mg/dL 0.6-1. 3 Not Available [facility] ([facility]) [address] , [place], [address], 10/24/2023 16:42:07 10/24/19 24 10/24/2023 COMP METAB OLIC PANEL glomerular filtration rate >60 mlper min 60- Not Available [facility] ([facility]) [address] , [place], [address], 10/24/2023 16:42:07 10/24/19 24 10/24/2023 COMP METAB OLIC PANEL total protein 7.2 g/dL 6.4-8. 2 Not Available [facility] ([facility]) [address] , [place], [address], 10/24/2023 16:42:07 10/24/19 24 10/24/2023 COMP METAB OLIC PANEL albumin 3.6 g/dL 3.4-5. 0 Not Available [facility] ([facility]) [address] , [place], [address], 10/24/2023 16:42:07 10/24/19 24 10/24/2023 COMP METAB OLIC PANEL globulin 3.6 Not Available [facility] ([facility]) [address] [place], [address], 10/24/2023 16:42:07 10/24/19 24 10/24/2023 COMP METAB OLIC PANEL alb/glob ratio 1.0 0.7-2 Not Available [facility] ([facility]) [address], [place], [address], 10/24/2023 16:42:07 10/24/19 24 10/24/2023 COMP METAB OLIC PANEL calcium 8.6 mg/dL 8.5-10 .5 Not Available [facility] ([facility]) [address] , [place], [address], 10/24/2023 16:42:07 10/24/19 24 10/24/2023 COMP METAB OLIC PANEL bilirubin total 0.50 mg/dL 0.10-1 .00 Not Available [facility] ([facility]) [address], [place], [address], 10/24/2023 16:42:07 10/24/19 24 10/24/2023 COMP METAB OLIC PANEL AST (SGOT) 23 U/L 0-37 Not Available [facility] ([facility]) [address], [place], [address], 10/24/2023 16:42:07 10/24/19 24 10/24/2023 COMP METAB OLIC PANEL ALT (SGPT) 39 U/L 0-65 Not Available [facility] ([facility]) [address] , [place], [address], 10/24/2023 16:42:07 10/24/19 24 10/24/2023 COMP METAB OLIC PANEL alk phosphatase 80 U/L 46-116 Not Available [facility]) [address] , [place], [address], 10/24/2023 16:42:07 10/25/19 24 10/26/2023 SEDIM ENTAT ION RATE- WESTE RGREN sedimentatio n rate-westerg los 5 mm/HR 0-15 Not Available [facility] ([facility]) [address] [facility], [place], [address], 11/03/2023 15:11:19 10/25/19 24 10/27/2023 C-CHANA CTIVE PROTE IN, QUANT C-reactive protein, quant 15 mg/L 0-10 above high normal Not Available [facility] ([facility]) [address] [facility], [place], [address], 11/03/2023 15:11:21 04/23/20 24 04/23/2024 C-CHANA CTIVE PROTE IN (CRP) C-reactive protein, quant 1.1 mg/dL 0.05-0 .300 high Not Available [facility] ([facility]) [address] [facility], [place], [address], 04/23/2024 10:36:29 04/23/20 24 04/23/2024 SED RATE sed rate auto 4 0-15 Not Available [facility] ([facility]) [address] [facility], [place], [address], 04/23/2024 10:54:51 11/20/19 24 11/20/2023 vengonzalez s duple x US lwr RT ext [facility] Hospit al [address] [place] [address] Phone: Fax: Name: GAYATHRI DENNIS Exam Date: 024 : 1979 Age 43 years Gender : M Access ion: [id number] Physic lou: LUCI BRADFORDi ty: [facility] Facili ty HSV: Outpat ient Exam: [...] Thank you for referr GAYATHRI Rodríguez to [facility]. Legall y authen ticate d by JADYN DÍAZ 11-19 11:51: 02 CC'ed Logic: Orderi ng Provid er: SPENCER OSUNA Attend ing Provid er: SPENCER OSUNA Referr ing Provid er: SPENCER OSUNA Admitt ing Provid er: SPENCER OSUNA giovany[address] - Physical Therapy [facility] [facility], [place], [address], 11/20/2023 12:58:54 11/20/19 24 11/20/2023 CT, angio gram, chest , w/ contr ast [facility] [address] [place] [address] Phone: Fax: Name: GAYATHRI DENNIS Exam Date: : 1979 Age 43 years Gender : M Access ion: [id number] Physic lou: LUCI BRADFORD Facili ty: [facility] Facili ty HSV: Outpat ient Exam: CTA [...] Thank you for referr GAYATHRI Rodríguez to [facility] al. Legall y authen ticate d by JADYN FarnsworthGAMAFouzia Macias IVO 11-19 12:06: 58 CC'ed Logic: Orderi ng Provid er: SPENCER OSUNA Attend ing Provid er: SPENCER OSUNA Referr ing Provid er: SPENCER OSUNA Admitt ing Provid er: SPENCER OSUNA [email or web address] [facility] - Physical Therapy [address] [place] [address], [place], [address], 11/21/2023 16:18:56 Result Notes Documentation Provider Name and Address Organization Details Recorded Time Ct, Angiogram, Chest, W/ Contrast : [address] [address] Name: WON DENNIS Exam Date: 11/20/2023 : 1980 Age 43 years Gender: M Physician: LUCI BARNES Facility: [facility] Facility HSV: Outpatient Exam: CTA CHEST [...] Thank you for referring WON DENNIS to [facility]. Legally authenticated by RENALDO DÍAZ 2023-11-20 12:06:58 CC'ed Logic: Ordering Provider: MOLLY OSUNA Attending Provider: MOLLY OSUNA Referring Provider: MOLLY OSUNA Admitting Provider: MOLLY jaramillo, [place] - [facility] [place] [facility] [place] 11/21/2023 16:18:56 Problems Name Problem SNOMED Code Status Onset Date Resolution Date Notes Provider Name and Address Organization Details Recorded Time Methicillin resistant Staphylococ cus aureus infection 957221845 Active 2023 Amy jaramillo [place] [facility] [place] [facility] [place] 4 10:16:00 High risk medication monitoring indicated 5071104262071 9103 Active 2023 Amy jaramillo [place] [facility] [place] 4 10:16:36 Problem Notes None recorded. Procedures Surgical History Date Name Laterality Status Provider Name and Address Organization Details Recorded Time 03/26/20 [address], [place], [address], [place] [facility] [place] 03/18/2024 14:56:10 10/24/19 24 Venipuncture [place], [address], YVON Farnsworth [facility] & [place] 10/23/2023 10:53:19 07/25/19 24 Venipuncture completed Sarah SANZ [facility] & [place] 07/25/2023 14:41:20 amputation of lower limb completed Sarah Farnsworth [facility] & [place] 07/25/2023 13:57:05 Imaging Results None recorded. Procedure Notes None recorded. Medical Equipment None Reported. Allergies Allergen ID Allergen Name Allergen Category Reaction Reaction Severity Criticality Documentation Date Start Date Code Code System Note Provider Name and Address Organization Details Recorded Time 461375 cefdinir medicatio n Not available Not available Not available 06/02/2023 73955 RxNorm Isabel jaramillo, [facility] & [place] 10:06:00 Medications Name Sig Start Date Stop [...] active Not Available Not Available Not Available [facility] 10 billion cell-200 mg sprinkle capsule [...] [degF] 96 % 96 % 81 /min 084049. 75 g 81 /min Isabel Abdullahiey [facility] & [place] 4 08:59:33 Date Recorded Body weight Body temperature Heart rate Oxygen saturation Oxygen saturation in Arterial blood by Pulse oximetry Systolic And Diastolic Provider Name and Address Organization Details Last Updated DateTime 4 874102. 53 g 97.8 [degF] 89 /min 95 % 95 % 134/82 mm[Hg] [facility] [place] 4 13:54:07 Date Recorded Body height Body mass index (BMI) Body weight Body temperature Heart rate Oxygen saturation Oxygen saturation in Arterial blood by Pulse oximetry Systolic And Diastolic Provider Name and Address Organization Details Last Updated DateTime 4 182.88 cm 43.3 kg/m2 930793. 97 g 98 [degF] 95 /min 96 % 96 % 137/92 mm[Hg] [facility] [place] 4 14:44:48 Date Recorded Body height Body mass index (BMI) Body weight Body temperature Oxygen saturation Oxygen saturation in Arterial blood by Pulse oximetry Heart rate Systolic And Diastolic Provider Name and Address Organization Details Last Updated DateTime 4 182.88 cm 43.2 kg/m2 007096. 81 g 98.6 [degF] 95 % 95 % 86 /min 134/84 mm[Hg] Amy Aquino [facility] & [place] 4 08:59:12 Date Recorded Body height Body mass index (BMI) Body weight Body temperature Oxygen saturation Oxygen saturation in Arterial blood by Pulse oximetry Heart rate Systolic And Diastolic Provider Name and Address Organization Details Last Updated DateTime 4 182.88 cm 42.9 kg/m2 221991. 19 g 98 [degF] 94 % 94 % 70 /min 140/80 mm[Hg] Kalie Gibbs [facility] & [place] 4 09:24:00 Social History None recorded. Functional Status Question Answer Note LastModified by Organizat ion Details LastModified Time Do you use any illicit or recreational drugs? No [email or web address] Information not available 07/25/2023 What is your level of alcohol consumption? Occasional [email or web address] Information not available 07/25/2023 Mental Status None recorded. Family History Nothing Reported. Medical History No medical history recorded. Immunizations Vaccine Type Date Status Note Provider Nam e and Address Organization Details Recorded Time Td (adult), 2 Lf tetanus toxoid, preservative free, adsorbed 6 completed aSrah jaramillo [facility] & [place] 07/25/2023 13:54:15 Past Encounters Encounter ID Performer Location Encounter Start Date Encounter Closed Date Diagnosis/Indication Diagnosis SNOMED-CT Code Diagnosis ICD10 Code Diagnosis IMO Codes Diagnosis Note [id number] Randy Torres MD [facility] Infectiou s Disease [address] [place] [address] 06/02/2023 09:54:50 06/02/2023 10:26:43 Osteomyelitis 06784621 M86.9 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 Influenza caused by Influenza A virus 172606125 J09.X2 Resolved.. No further oseltamivi r needed. High risk medication monitoring indicated 6432355812 4317478 Z76.89 Related to the daptomycin . I will check a total CK and continue to follow serial levels of this enzyme to make sure he develops no rhabdomyol ysis. [id number] Randy Torres MD [facility] Disease [address] [place] [address] 06/09/2023 10:23:03 06/09/2023 10:54:12 Osteomyelitis 78082119 M86.9 Occurring in the right BKA stump [...] time. Methicilli n resistant Staphylococcus aureus infection 278608590 A49.02 As above High risk medication monitoring indicated 2204305560 8120176 Z76.89 This is related to the daptomycin . I will continue to monitor his total CK levels closely. [id number] Randy Torres MD [facility] Infect[facility] Disease [address] [place] [address] 06/28/2023 10:37:09 06/28/2023 11:22:08 Osteomyelitis 45502834 M86.9 Occurring in the right BKA stump [...] week. Methicilli n resistant Staphylococcus aureus infection 383112464 A49.02 As above [id number] Randy Torres MD [facility] Infect[facility] Disease [address] [place] [address] 07/06/2023 09:38:06 07/06/2023 10:00:10 Osteomyelitis 49585193 M86.9 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 Methicilli n resistant Staphylococcus aureus infection 033928963 A49.02 As above Adverse re action to drug 65911070 T50.905A Related to doxycyclin e. This is gastrointe stinal in nature. I will check his liver function testing to make sure he is not developing any hepatotoxi city. I will drop the dose to 100 mg per day. I want him to continue to take it with food. I will re-evaluat e next week. [id number] Randy Torres MD [facility] Infect[facility] Disease [address] [place] [address] 07/12/2023 08:53:12 07/12/2023 09:54:35 Osteomyelitis 71040672 M86.9 Occurring in the right BKA stump [...] month. Methicilli n resistant Staphylococcus aureus infection 706161043 A49.02 As above [id number] Luci Barnes PA-C [facility] [address] [place] [address] 07/25/2023 13:39:19 07/26/2023 06:33:52 Deep venous thrombosis 174351881 I82.409 Patient has a history of osteomyeli [...] performed when patient was hospitaliz ed at [facility] on May 26, 2023 with normal antithromb in 3 activity. No evidence of factor 5 Leiden mutation. Discussed with patient will order additional labs for further evaluation acquired hypercoagu lable disorder today. Discussed will likely continue on least the prophylact ic dose of Eliquis lifelong due to separate occurrence s of blood clots. Pulmonary embolism 74059 003 I26.99 Patient has a history of [...] s of blood clots. Anticoagulant therapy 18 6138587 Z79.01 Patient continues on Eliquis 5 mg 1 tab p.o. b.i.d.. He is tolerating without trouble. Discussed will likely continue on least the prophylact ic dose of Eliquis lifelong due to separate occurrence s of blood clots. [id number] Luci Barnes PA-C [facility] [address] [place] [address] 10/24/2023 14:29:27 10/24/2023 15:33:34 Deep venous thrombosis 910901740 I82.409 Patient has a history of osteomyeli [...] performed when patient was hospitaliz ed at [facility] on May 26, 2023 with normal [...] Will follow up labs today. Pulmonary embolism 48832 003 I26.99 Patient has a history of [...] follow up labs today. Anticoagulant therapy 18 1594312 Z79.01 Patient continues on Eliquis 5 mg 1 tab p.o. b.i.d.. He is tolerating without trouble. Discussed will continue on least the prophylact ic dose of Eliquis lifelong due to separate occurrence s of blood clots. Will follow up venous duplex of lower extremity and chest CTA to make sure no evidence of embolism before reducing Eliquis dose to 2.5 mg b.i.d. [id number] Randy Torres MD [facility] Infect[facility] Disease [address] [place] [address] 10/25/2023 08:49:58 10/25/2023 10:57:40 Osteomyelitis 83059683 M86.9 Occurring in the right BKA stump [...] months. Methicilli n resistant Staphylococcus aureus infection 132521043 A49.02 As above High risk medication monitoring indicated 3131953927 4866783 Z76.89 This is related to the chronic suppressiv e doxycyclin e. I reviewed his liver function testing from yesterday. There is no evidence of any hepatotoxi city. I will continue to monitor this at each visit. I also counseled him about the risk of photosensi tivity with doxycyclin e. [id number] Randy Torres MD [facility] Infectiou s Disease -[address] [facility] [address] [place] [address] 04/23/2024 09:14:33 04/23/2024 09:34:49 Osteomyelitis 75048599 M86.9 Occurring in the right BKA stump [...] month. Methicilli n resistant Staphylococcus aureus infection 676388725 A49.02 As above Health Concerns Section Related Observation LastModified by Organization Detai ls LastModified Time None Recorded Concern Status LastModified by Organization Details LastModified Time None Recorded Advance Directives Directive None Recorded Payers Insurance Date Sequence Insurance Name Policy Number Policy Brantley Covered Member ID Brantley Member ID Guarantor Name 01/27/2024 1 [place] [id number] Won Dennis [id number] Won Dennis 04/25/2025 1 LENNY Dennis [id number] Won Dennis Notes Date Note Type Note Provider Name and Address Organization Details Recorded Time 07/12/2023 text/html ROS as noted in the HPI This is a 42-year-old white male following up with ak for right BKA stump osteomyelitis due to [...] incision remains completely healed. Randy Torres MD [address], [place], [address], [place] [facility] [place] [facility] [place] 07/12/2023 09:50:44 07/25/2023 text/html 43-year-old male presents [...] Labs performed when patient was hospitalized at [facility] on May 26, 2023 with normal antithrombin 3 activity. No evidence of factor 5 Leiden mutation. Discussed with patient will order additional labs for further evaluation acquired hypercoagulable disorder today. Discussed will likely continue on least the prophylactic dose of Eliquis lifelong due to separate occurrences of blood clots. Luci Barnes PA-C [address], [place], [address], [place] [facility] & [place] 07/25/2023 15:32:35 10/24/2023 text/html 43-year-old male presents [...] Labs performed when patient was hospitalized at [facility] on May 26, 2023 with normal [...] follow up labs today. Luci Barnes PA-C [address] , [place], [address], [place] [facility] & [place] 10/24/2023 15:43:34 10/25/2023 text/html ROS as noted [...] well. 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 Since his debridement, he completed 6 weeks of intravenous daptomycin and 1 year of suppressive doxycycline. He is remained infection free. His stump is fully healed. No fever. No other issues. He is tolerating the doxycycline well. Randy Torres MD [address], [place], [address], [facility] - [facility] & [place] 04/23/2024 09:31:22
--- OUTSIDE RECORDS SUMMARY | 2025-04-26 09:33 | XMS_ITS | Encounter Summary ---
Author Organization Healthcare Address [address] [place] [address] Care Team Providers Care Processing Lead Name Role Phone Unavailable Primary Care Provider Unavailabl e Encounter Details Date Type Department Care Team (Late st Contact Info) Description 05/17/2023 Lab Requisition [facility] [address] [place] [address] Sushil Dean MD [address] [facility] [address] [place] [address] Encounter for general adult medical examination without [...] O RDERABLES Final Result Performing Organization Address City/[facility] Co de Phone Number [facility] [address] [place] [address] * Bone Culture and Gram Stain (05/17/2023 [...] O RDERABLES Final Result Performing Organization Address [facility] Co de Phone Number [facility] [address] [place] [address] documented in this encounter Visit Diagnoses Diagnosis Encounter for general adult medical examination without abnormal findings documented in this encounter
--- OUTSIDE RECORDS SUMMARY | 2025-04-26 09:33 | XMS_ITS | Encounter Summary ---
Author Organization Healthcare Address [address] [place] [address] Care Team Providers Care Processing Associate Name Role Phone Unavailable Primary Care Provider Unavailabl e Encounter Details Date Type Department Care Team (Late st Contact Info) Description 08/12/2022 Lab Requisition [facility] [address] [place] [address] Sushil Dean MD [address] [place] [address] Encounter for general adult medical examination without [...] has been identified using the FDA Approved Possible Weber CA System The organism value for this [...] O ERIC Final Result Performing Organization Address City/[facility] de Phone Number HEALTHCARE [facility] [address] [place] [address] * Bone Culture and Gram Stain (08/12/2022 [...] O RDERABLES Final Result Performing Organization Address City/[facility] de Phone Number [facility] [address] [place] [address] documented in this encounter Visit Diagnoses Diagnosis Encounter for general adult medical examination without abnormal findings documented in this encounter
--- OUTSIDE RECORDS SUMMARY | 2025-04-26 09:33 | XMS_ITS | Encounter Summary ---
Author Organization [facility] Address [address] [place] [address] Care Team Providers Care Oil Tank Car Cleaner Name Role Phone Provider, No Known [...] 2:25 PM EDT Cherri Grimm RN * Rowan Suicide Severity Rating Scale (Screener/Recent Self-Report) Question [...] documented as of this encounter Care Teams Oil Tank Car Cleaner Relationship Specialty Start Date End Date Provider, No Known [facility] [place] [address] PCP - General 05/09/23 documented as of this encounter
--- OUTSIDE RECORDS SUMMARY | 2025-04-26 09:33 | XMS_ITS | Encounter Summary ---
Author Organization Healthcare Address [address] [place] [address] Care Team Providers Care Manager Social Services Name Role Phone Unavailable Primary Care Provider Unavailabl e Encounter Details Date Type Department Care Team (Late st Contact Info) Description 07/20/2022 Lab Requisition [facility] [address] [place] [address] Sushil Dean MD [address] [place] [address] Encounter for general adult medical examination without [...] at day 4 07/27/2022 11:32 AM EST [facility] Bone Specimen from bone / Unknown 07/20/2022 1:36 PM EST 07/20/2022 5:52 PM EST us Sushil Dean MD LAB MICROBIOLOGY - GENERAL O RDERABLES Final Result Performing Organization Address City/[facility] Co de Phone Number [facility] [address] [place] [address] * Bone Culture and Gram Stain (07/20/2022 1:36 PM EST) Culture No growth at day 4 2022 9:16 AM EST [facility] Gram Stain Result Rare Polymorphonuclear leukocytes 07/24/2022 9:16 AM EST [facility] Gram Stain Result No organisms seen 07/24/2022 9:16 AM EST [facility] Bone Specimen from bone / Unknown 07/20/2022 1:36 PM EST 07/20/2022 5:52 PM EST us Sushil Dean MD LAB MICROBIOLOGY - GENERAL O RDERABLES Final Result Performing Organization Address City/[facility] Co de Phone Number [facility] [address] [place] [address] documented in this encounter Visit Diagnoses Diagnosis Encounter for general adult medical examination without abnormal findings documented in this encounter
--- OUTSIDE RECORDS SUMMARY | 2025-04-26 09:33 | XMS_ITS | Encounter Summary ---
Author Organization Healthcare Address [address] [place] [address] Care Team Providers Care Amusement Or Recreation Card Checker Name Role Phone Unavailable Primary Care Provider Unavailabl e Encounter Details Date Type Department Care Team (Late st Contact Info) Description 07/20/2022 Lab Requisition [facility] [address] [place] [address] Sushil Dean MD [address] [place] [address] Encounter for general adult medical examination without [...]
--- OUTSIDE RECORDS SUMMARY | 2025-04-26 09:33 | XMS_ITS | Clinical Summary ---
Author Organization Healthcare Address [address] [place] [address] Care Team Providers Care Occupational Psychologist Name Role Phone Unavailable Primary Care Provider [...]
--- OUTSIDE RECORDS SUMMARY | 2025-04-26 09:33 | XMS_ITS | Encounter Summary ---
Author Organization Healthcare Address [address] [place] [address] Care Team Providers Care Oysterman Name Role Phone Unavailable Primary Care Provider Unavailabl e Encounter Details Date Type Department Care Team (Late st Contact Info) Description 05/13/2023 Lab Requisition [facility] [address] [place] [address] Sushil Dean MD [address] [facility] [place] [address] Encounter for general adult medical examination without [...] O RDERABLES Final Result Performing Organization Address [facility] Co de Phone Number [facility] [address] [place] [address] * Anaerobic Culture (05/13/2023 9:17 AM EDT) Culture No growth at day 4 05/20/2023 10:35 AM EST [facility] Bone 05/13/2023 9:17 AM EDT 05/13/2023 1:25 PM EDT us Sushil Dean MD LAB MICROBIOLOGY - GENERAL O RDERABLES Final Result Performing Organization Address [facility] de Phone Number [facility] [address] [place] [address] * Bone Culture and Gram Stain (05/13/2023 [...] O RDERABLES Final Result Performing Organization Address [facility] de Phone Number [facility] [address] [place] [address] documented in this encounter Visit Diagnoses Diagnosis Encounter for general adult medical examination without abnormal findings documented in this encounter
--- OUTSIDE RECORDS SUMMARY | 2025-04-26 09:33 | XMS_ITS | Encounter Summary ---
Author Organization Healthcare Address [address] [place] [address] Care Team Providers Care Rental Sales Associate Name Role Phone Unavailable Primary Care Provider Unavailabl e Encounter Details Date Type Department Care Team (Late st Contact Info) Description 10/19/2022 Lab Requisition [facility] [address] [place] [address] Sushil Dean MD [address] [place] [address] Encounter for general adult medical examination without [...] by MALDI tof mass spectrometry using the Bullhorn database and is for research use only. The organism value for this result has been updated. These results have been appended to the previously preliminary verified report. Bone Specimen from bone / Unknown 10/19/2022 5:17 PM EDT 10/19/2022 9:49 PM EDT Sushil Dean MD LAB MICROBIOLOGY - GENERAL O RDERABLES Final Result Performing Organization Address [facility] de Phone Number [facility]ALTHCARE [facility] [address] [place] [phone] * Bone Culture and Gram Stain (10/19/2022 5:17 PM EDT) Culture No growth at day 4 2022 8:14 AM EDT [facility] Gram Stain Result Few Polymorphonuclear leukocytes 10/23/2022 8:14 AM EDT [facility] Gram Stain Result No organisms seen 10/23/2022 8:14 AM EDT [facility] Bone Specimen from bone / Unknown 10/19/2022 5:17 PM EDT 10/19/2022 9:49 PM EDT Sushil Dean MD LAB MICROBIOLOGY - GENERAL O RDERAADDI Final Result Performing Organization Address [facility] Phone Number [facility] [address] [place] [address] documented in this encounter Visit Diagnoses Diagnosis Encounter for general adult medical examination without abnormal findings documented in this encounter
--- OUTSIDE RECORDS SUMMARY | 2025-04-26 09:33 | XMS_ITS | Encounter Summary ---
Author Organization [facility] Address [address] [place] [address] Care Team Providers Care Financial Dealers Name Role Phone Unavailable Primary Care Provider Unavailabl e Encounter Details Date Type Department Care Team (Late st Contact Info) Description 10/03/2022 Lab Requisition [facility] Lab [address] [place] [address] Dalila Cox MD [address], [place] [phone] Encounter for general adult medical examination without [...] Culture Neelima albicans(A) 10/05/2022 11:58 AM EDT [facility] Comment: This result was determined by MALDI tof Mass spectrometry. This assay was developed and its performance characteristics determined by [facility] as appropriate for clinical purposes. [...] Result - Final [facility] [address] [place] [address] documented in this encounter Visit Diagnoses Diagnosis Encounter for general adult medical examination without abnormal findings documented in this encounter
--- OUTSIDE RECORDS SUMMARY | 2025-04-26 09:33 | XMS_ITS | Clinical Summary ---
Author Organization [facility] Address [address] [place] [address] Care Team Providers Care Music Professionals Name Role Phone Provider, No Known Primary [...] Discontinue d(Stop Taking at Discharge) Lactobacillus- Inulin ([facility]) capsule Take 200 mg by [...] Description 04/08/2025 3:34 PM EDT Anesthesia [place] [facility] [place] [place] [address] [place] [phone] Ulises Hoffman MD Wells, Jeremy B., MD 04/08/2025 2:45 PM EDT - 04/08/2025 4:04 PM EDT Surgery [facility] OR [address] [place] [address] Sushil Dean Jr., MD LEG DEBRIDEMENT AND IRRIGATION 04/07/2025 8:36 PM EDT Anesthesia Event [facility] OR [address] [place] [address] Luci Alonso DO 04/07/2025 6:00 PM EDT - 04/07/2025 6:52 PM EDT Surgery [facility] OR [address] [place] [address] Sushil Dean Jr., MD LEG DEBRIDEMENT, IRRIGATION 04/04/2025 4:10 PM EDT - 04/11/2025 1:58 PM EDT Hospital Encounter [facility] 5G [address] [place] [address] Mario Crowley DO Anderson, Laurie, [...] drink = 0.6 oz pur e alcohol) [facility] Utilities Answer Date Recorded In the past 12 months has [employer], gas, oil, or water Exacter threatened to shut off services in your [...] Not on file Preferred Language Citizen Of [place] 04/07/2025 Sex and Gender Information Value Date [...] this topic Medical Devices Implanted Type Area Quality Control Lab Technician Device Identifier Shelf Expiration Date Model / Serial / Lot Dev Wnd/Cls Contrl Tiss Stratafix Spiral Pls Pds Ct1 0 22cm - [id number] Implanted:Qty: 1 on 04/08/2025 by Sushil Dean Jr., MD at [facility] Implant Right: Leg [employer] 12/07/2025 [id number] / / [id number] Procedures Procedure Name Priority [...] 3:4 0 PM EDT Right BKA infection [place] SEC ABDOMINAL WALL SUTURE EVISCERATION/DEHSN 04/08/2025 3:20 [...] - 5.80 10*6/mm3 04/11/2025 4:02 AM EDT [facility] Hemoglobin 12.8(L) 13.0 - 17.7 g/dL 04/11/2025 4:02 AM EDT [facility] Hematocrit 40.5 37.5 - 51.0 % 04/11/2025 4:02 AM EDT [facility] MCV 86.2 79.0 - 97.0 fL 04/11/2025 4:02 AM EDT [facility] MCH 27.2 26.6 - 33.0 pg 04/11/2025 4:02 AM EDT [facility] MCHC 31.6 31.5 - 35.7 g/dL 04/11/2025 4:02 AM EDT [facility] RDW 12.9 12.3 - 15.4 % 04/11/2025 4:02 AM EDT [facility] RDW-SD 40.5 37.0 - 54.0 fl 04/11/2025 4:02 AM EDT [facility] MPV 9.2 6.0 - 12.0 fL 04/11/2025 4:02 AM EDT [facility] Platelets 267 140 - 450 10*3/mm3 04/11/2025 4:02 AM EDT [facility] Neutrophil % 59.5 42.7 - 76.0 % 04/11/2025 4:02 AM EDT [facility] Lymphocyte % 26.3 19.6 - 45.3 % 04/11/2025 4:02 AM EDT [facility] Monocyte % 9.3 5.0 - 12.0 % 04/11/2025 4:02 AM [facility] Eosinophil % 4.1 0.3 - 6.2 % 04/11/2025 4:02 AM EDT [facility] Basophil % 0.4 0.0 - 1.5 % 04[facility] Immature Grans % 0.4 0.0 - 0.5 % 04/11/2025 4:02 AM [facility] Neutrophils, Absolute 4.69 1.70 - 7.00 10*3/mm3 04/11/2025 4:02 AM [facility] Lymphocytes, Absolute 2.07 0.70 - 3.10 10*3/mm3 04/11/2025 4:02 AM [facility] Monocytes, Absolute 0.73 0.10 - 0.90 10*3/mm3 04/11/2025 4:02 AM [facility] Eosinophils, Absolute 0.32 0.00 - 0.40 10*3/mm3 04/11/2025 4:02 AM [facility] Basophils, Absolute 0.03 0.00 - 0.20 10*3/mm3 04/11/2025 4:02 AM [facility] Immature Grans, Absolute 0.03 0.00 - 0.05 10*3/mm3 04/11/2025 4:02 AM [facility] nRBC 0.0 0.0 - 0.2 /100 WBC 04/11/2025 4:02 AM [facility] Blood Venipuncture / Unknown 04/11/2025 3:40 AM EDT 04/11/2025 3:59 AM EDT Sushil Dean Jr., MD LAB BLOOD ORDERABLES Fi nal Result [facility]
[address] [place] [address], * (ABNORMAL) Comprehensive Metabolic Panel (04/11/2025 3:40 AM EDT) Only the most recent of2 resultswithin the time period is included. Glucose 108(H) 65 - 99 mg/dL 04/11/2025 4:19 AM EDT [facility] BUN 12.5 6.0 - 20.0 mg/dL 04/11/2025 4:19 AM EDT [facility] Creatinine 0.68(L) 0.76 - 1.27 mg/dL 04/11/2025 4:19 AM EDT [facility] Sodium 140 136 - 145 mmol/L 04/11/2025 4:19 AM EDT [facility] Potassium 3.8 3.5 - 5.2 mmol/L 04/11/2025 4:19 AM EDT [facility] Chloride 105 98 - 107 mmol/L 04/11/2025 4:19 AM EDT [facility] CO2 28.2 22.0 - 29.0 mmol/L 04/11/2025 4:19 AM EDT [facility] Calcium 8.2(L) 8.6 - 10.5 mg/dL 04/11/2025 4:19 AM EDT [facility] Total Protein 6.1 6.0 - 8.5 g/dL 04/11/2025 4:19 AM EDT [facility] Albumin 3.1(L) 3.5 - 5.2 g/dL 04/11/2025 4:19 AM EDT [facility] ALT (SGPT) 52(H) 1 - 41 U/L 04/11/2025 4:19 AM EDT [facility] AST (SGOT) 40 1 - 40 U/L 04/11/2025 4:19 AM EDT [facility] Alkaline Phosphatase 99 39 - 117 U/L 04/11/2025 4:19 AM EDT [facility] Total Bilirubin 0.2 0.0 - 1.2 mg/dL 04/11/2025 4:19 AM EDT [facility] Globulin 3.0 gm/dL 04/11/2025 4:19 AM EDT [facility] Comment:Calculated Result A/G Ratio 1.0 g/dL 04/11/2025 4:19 AM EDT [facility] BUN/Creatinine Ratio 18.4 7.0 - 25.0 04/11/2025 4:19 AM EDT [facility] Anion Gap 6.8 5.0 - 15.0 mmol/L 04/11/2025 4:19 AM EDT [facility] eGFR 117.5 >60.0 mL/min/1.7 3 04/11/2025 4:19 AM EDT [facility] Blood Venipuncture / Unknown 04/11/2025 3:40 AM EDT 04/11/2025 3:56 AM EDT [facility] - 04/11/2025 4:19 AM [...] race as a factor us Rosario Hill GRINDER SET UP OPERATOR SURFACE LAB BLOOD ORDERABLES Final Result [facility]
[address] [phone], * Heparin Anti-Xa (04/10/2025 3:46 AM EDT) Only the most recent of13 resultswithin the time period is included. Heparin Anti-Xa (UFH) 0.35 0.30 - 0.70 IU/ml 04/10/2025 4:23 AM EDT [facility] Blood Venipuncture / Unknown 04/10/2025 3:46 AM EDT 04/10/2025 3:53 AM EDT Larisa Hamilton [facility] LAB BLOOD ORDERABLES Final R esult [facility]
[address] [place] [address], * (ABNORMAL) Basic Metabolic Panel (04/10/2025 3:46 AM EDT) Only the most recent of6 resultswithin the time period is included. [facility] Glucose 125(H) 65 - 99 [...] Final Resul t [facility]
[address] [place] [address], * Wound Culture - Swab, Leg, Right [...] [facility]
[address] [place] [address], [facility]
[address] [place] [address], [place] [phone] * Anaerobic Culture - Swab, Leg, Right [...] GENERAL ORDERABLES Final Result Performing Organization Address [facility] Co de Phone Number [facility]
[address] [place] [address], * Scan Slide (04/08/2025 8:41 AM EDT) [...] City/[facility]/ZIP Co de Phone Number [facility]
[address] [place] [address], [place] [phone] * [place] C Arm During Surgery (04/07/2025 [...] [facility]
[address] [place] [address], [facility]
[address] [place] [address], * BH AN ETT AIRWAY (04/07/2025 8:44 [...] [place] 04/07/2025 9:58 AM EDT Workstation ID: [id number] Narrative 04/07/2025 9:58 AM EDT MRI TIBIA [...] soft tissues, as before. Procedure Note Hugh Bunerostro MD - 04/07/2025 MRI TIBIA FIBULA RIGHT [...] [place] 04/07/2025 9:58 AM EDT Workstation ID: [id number] Sushil Dean Jr., MD IMG MRI ORDERABLES Mary Beth l Result * Potassium (04/06/2025 7:16 PM EDT) Potassium 4.0 3.5 - 5.2 mmol/L 04/06/2025 7:53 PM EDT [facility] Blood Venipuncture / Unknown 04/06/2025 7:16 PM EDT 04/06/2025 7:35 PM EDT Jason Álvarez DO LAB BLOOD ORDERABLES Final Resul t Performing Organization Address City/[facility]/ZIP Co de Phone Number [facility]
[address] [place] [address], * CK (04/05/2025 12:15 PM EDT) Creatine Kinase 140 20 - 200 U/L 04/05/2025 1:31 PM EDT [facility] Blood Venipuncture / Unknown 04/05/2025 12:15 PM EDT 04/05/2025 1:03 PM EDT Cralton Mead MD LAB BLOOD ORDERABLES Final R esult Performing Organization Address City/[facility]/ZIP Co de Phone Number [facility]
[address] [place] [address], * (ABNORMAL) aPTT (04/05/2025 3:54 AM EDT) [...] 0.5 U/ml are 60 to 70 seconds. [employer] LAB BLOOD ORDERABLES Final R esult Performing Organization Address City/[facility]/ZIP Co de Phone Number [facility]
[address] [place] [address], * (ABNORMAL) Protime-INR (04/05/2025 12:18 AM EDT) Pathologist [facility] Protime 15.9(H) 12.2 - 15.3 Seconds 04/05/2025 12:53 AM EDT [facility] INR 1.19(H) 0.89 - 1.12 04/05/2025 12:53 AM EDT [facility] Blood Venipuncture / Unknown 04/05/2025 12:18 AM EDT 04/05/2025 12:37 AM EDT [employer] LAB BLOOD ORDERABLES Final R esult Performing Organization Address City/[facility]/ZIP Co de Phone Number [facility]
[address] [place] [address], * POC Creatinine (04/04/2025 2:49 PM EDT) Pathologist [facility] Creatinine 1.10 0.60 - 1.30 mg/dL 04/07/2025 7:14 PM EDT [facility] Comment:Serial Number: [id number] 7Operator: [id number] Venous Blood 04/04/2025 2:49 PM EDT 04/07/2025 7:14 PM EDT Jason Álvarez DO POINT OF CARE TEST ORDERABLES Fi nal Result Performing Organization Address [facility] Co de Phone Number [facility]
[address] [place] [address], * (ABNORMAL) Sedimentation Rate (04/04/2025 2:47 PM EDT) Sed Rate 51(H) 0 - 15 mm/hr 04/04/2025 3:06 PM EDT [facility] Blood Venipuncture / Unknown 04/04/2025 2:47 PM EDT 04/04/2025 2:52 PM EDT Mario Crowley LAB BLOOD ORDERABLES Fin al Result Performing Organization Address [facility] de Phone Number [facility]
[address] [place] [address], * (ABNORMAL) C-reactive Protein (04/04/2025 2:47 PM EDT) C-Reactive Protein 8.57(H) 0.00 - 0.50 mg/dL 04/04/2025 3:26 PM EDT [facility] Blood Venipuncture / Unknown 04/04/2025 2:47 PM EDT 04/04/2025 2:52 PM EDT Mario Crowley DO LAB BLOOD ORDERABLES Fin al Result Performing Organization Address [facility] Co de Phone Number [facility]
[address] [place] [address], from Last 3 Months Additional Health Concerns [...] Of Support Discussed With: Patient Care Teams Music Professionals Relationship Specialty Start Date End Date Provider, No Known [facility] [place] [address] PCP - General 05/09/23
--- OUTSIDE RECORDS SUMMARY | 2025-04-26 09:33 | XMS_ITS | Encounter Summary ---
Author Organization Healthcare Address [address] [place] [address] Care Team Providers Care Washing And Screening Plant Supervisor Name Role Phone Unavailable Primary Care Provider Unavailabl e Encounter Details Date Type Department Care Team (Late st Contact Info) Description 10/01/2022 Lab Requisition [facility] [address] [place] [address] Sushil Dean MD [address] [facility] [place] [address] Encounter for general adult medical examination without [...] has been identified using the FDA Approved [employer] [place] System The organism value for this [...] Refer to culture [id number] FOR SUSCEPTIBILITIES ON NEELIMA ALBICANS us Sushil Dean MD LAB MICROBIOLOGY - GENERAL O RDERABLES Final Result [facility] [address] [place] [address] documented in this encounter Visit Diagnoses Diagnosis Encounter for general adult medical examination without abnormal findings documented in this encounter
[2025-04-26 09:42] VITALS: BP 128/68; PULSE 71; RESP 16; TEMP 36.9; O2SAT 98
[2025-04-26 10:25] VITALS: BP 131/76; PULSE 78; RESP 15; TEMP 36.7; O2SAT 96
== END 2025-04-26 10:31 | disposition home or self-care (01) ==
LOC: INF 09:29
PROVIDERS: PCP Nurse Practitioner Family; Visit Provider Internal Medicine Infectious Disease
DX: L03.115 Cellulitis of right lower limb (principal); L02.415 Cutaneous abscess of right lower limb; Z89.511 Acquired absence of right leg below knee; L30.9 Dermatitis, unspecified; D68.2 Hereditary deficiency of other clotting factors; I10 Essential (primary) hypertension; E78.5 Hyperlipidemia, unspecified; F39 Unspecified mood [affective] disorder
CPT/HCPCS: 96365; J0878

== ENCOUNTER 2025-04-27 09:06 | Outpatient (CLI) | payer MEDICARE, SELFPAY ==
--- OUTSIDE RECORDS SUMMARY | 2023-12-12 05:00 | XMS_ITS ---
Author Organization Ayaka Address 1210 [facility] 36 [facility] 2C [place] [phone] Care Team Providers Care Patient Centered Care Specialist Name Role Phone Zeeshan Salazar Primary Care Provider [phone] Macario Burkett [phone] REASON FOR VISIT 6 Month Check Up Encounters Encounter Location Date Provider Diagnosis [place] 1210 [facility] [address] [place] [phone] 12/12/2023 Macario Burkett Plan Of Treatment No Information Progress Notes * Won MEDRANO ZeeshanDOB: [birth year] (44 yo M)Acc No.[id number]:12/12/2023 Progress Notes Patient: Won SPANN Provider: Colleen Burkett M.D. :1980 A ge:43 Y S ex:Male Date:12/12/2023 Address:[address] [place] [address] [id number] Pcp:Zeeshan Salazar Subjective: * Chief Complaints: * 1 . 6 Month Check Up. * Medical History: Objective: * Vitals: Assessment: Plan: * Treatment: * Images: Billing Information: * Visit Code: * Procedure Codes: * Electronic signature of Micaela Burkett MD on 04/27/2025 at 09:09 AM EDT Sign off status: Pending * Provider: Colleen Burkett M.D. Date: 12/12/2023 Generated for Nany jorgensen/Elaine/Pro on: 1 09:09 AM EDT
--- OUTSIDE RECORDS SUMMARY | 2025-04-04 16:10 | XMS_ITS | Encounter Summary ---
Author Organization [facility] Address [address] [place] [address] Care Team Providers Care Suture Polisher Name Role Phone Provider, No Known Primary Care Provider Unavail able Reason for Visit * Reason Comments Leg Swelling * Auth/Cert Specialty Diagnoses / Procedures Referred By Contlevy t Referred To Contact Diagnoses Right BKA infection Referral ID Status Reason Start Date Expiration Date Visits Re quested Visits Authorized [id number] 1 1 Encounter Details Date Type Department Care Team (Late st Contact Info) Description 04/04/2025 4:10 PM EDT - 04/11/2025 1:58 PM EDT Hospital Encounter [address] [place] [address] Mario Crowley, [address] [place] [address] Leonora Shepherd MD [address] [address] Jason Álvarez DO [address] [address] Jadyn Richardson DO [address] [address] Cellulitis of right lower extremity (Primary Dx); Below-knee amputation of right lower extremity, initial encounter; Right BKA infection Discharge Disposition: Home or Self Care Social History Tobacco Use Types Packs/Day Years Used Date Smoking Tobacco: Never Smokeless Tobacco: Never Tobacco Cessation:Counseling Given: Not Answered Alcohol Use Standard Drinks/Week Comments Not Currently 0 (1 standard drink = 0.6 oz pur e alcohol) [facility] Utilities Answer Date Recorded In the past 12 months has th e [employer], gas, oil, or water company threatened to [...] or training? Not on file Preferred Language Peruvian 04/07/2025 Sex and Gender Information Value Date [...] 2:25 PM EDT Cherri Grimm RN * Nixon Suicide Severity Rating Scale (Screener/Recent Self-Report) Question [...] original note were not included. [facility] Medicine Services DISCHARGE SUMMARY Patient Name: [...] Date/Time Wound Culture - Swab, Leg, Right [[id number]] (Abnormal) (Susceptibility) Collected: 04/07/252106 Lab Status: Final [...] Units Date/Time FL C Arm During Surgery [[id number]] Resulted: 04/07/252137 Updated: 04/07/252137 Narrative: This procedure was auto-finalized with no dictation required. MRI Tibia Fibula Right With & Without Contrast [[id number]] Collected: 04/07/25 0938 Updated: 04/07/25 1001 Narrative: [...] Buenrostro 04/07/2025 9:58 AM EDT Workstation ID: [id number] MRI Tibia Fibula Right With & Without Contrast [[id number]] Collected: 04/04/252256 Updated: 04/04/252302 Narrative: MRI TIBIA [...] represent a small area of phlegmonous change ([id number] image 10) measuring approximately 1.6 cm which [...] MD 04/04/2025 11:00 PM EDT Workstation ID: [id number] Pending Labs Order Current Status Fungus Culture [...] FLOMAX 1 capsule, Nightly Stop These Medications [facility] Digestive [facility] capsule doxycycline 100 MG tablet Commonly [...] Male) Date of 1980 Social Security Number [id number] [place] [address] [employer]ism Unknown Marital Status Unknown Admission Date 04/04/2025 Admission Type Emergency Admitting Provider Jadyn Richardson DO Attending Provider Jadyn Richardson DO Department, Room/Bed [address], S565/1 Discharge Date Discharge Disposition Discharge [...] Group [place] [id number] Payor Plan Address Payor Plan Phone Number Payor Plan Fax Number Effective Dates [employer] [address] [address] 08/10/2023 - None Entered [place] [address] Subscriber Name Subscriber Date Member ID WON DENNIS 1980 [id number] Emergency Contacts Rice Drier (Rel.) Home Phone Work Phone Mobile Phone Avril Dennis (Spouse) -- -- [phone] LewRobert (Relative) -- -- [phone] [facility] [address] Patient: ROOM: [facility] Won Dennis [address] [facility] [address] : 1980 SSN: [id number] Sex: M PCP: Provider, No Known Emergency Contact Information Name Relation Home Work Mobile Avril Dennis Spouse [phone] Other Contacts Name Relation Home Work Mobile Robert Hackett Relative [phone] INSURANCE PA[employer]OR [employer]AN [employer] # SUBSCRIBER ID Primary: Secondary: MEDICARE [employer]ICAID [place] [id number] Admitting Diagnosis: 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] Order Date: Apr 09, 2025 Case Management Shipping Checker Consult (Order ID: [id number]) Diagnosis: Priority: Routine Expected Date: Expiration Date: Interval: Once Count: Comments: Outpatient orders: 1. Outpatient intravenous antibiotic therapy: Daptomycin 800 mg IV daily to be supplied by [facility] 2. Home health to perform [...] INFECTIOUS DISEASE Progress Note Won Dennis 1980 [id number] Date of Consult: 04/10/2025 Admission Date: 04/04/2025 [...] which prompted him to seek treatment at [facility]. He is known to Dr. [...] wound 05/09/25. HDS, on Heparin gtt. Currently [facility] has been asked to manage [...] Jr., MD, 20 mg at 04/09/25906 heparin 22206 units/250 mL (100 units/mL) in 0.45 % [...] 0.9 % 100 mL MBP Ordering Provider: Leoonra Shepherd MD 2,000 mg 200 mL/hr over [...] Units Date/Time FL C Arm During Surgery [[id number]] Resulted: 04/07/252137 Updated: 04/07/252137 Narrative: This procedure was auto-finalized with no dictation required. MRI Tibia Fibula Right With & Without Contrast [[id number]] Collected: 04/07/25 0938 Updated: 04/07/25 1001 Narrative: [...] Chitra 04/07/2025 9:58 AM EDT Workstation ID: [id number] Impression: Recurrent Right BKA stump abscess/cellulitis- this [...] disposition with the pharmacist at [facility] today. I will sign off Outpatient orders: 1. Outpatient intravenous antibiotic therapy: Daptomycin 800 mg IV daily to be supplied by [facility] 2. Home health to perform weekly PICC [...] Signed Expand All Collapse All [facility] Medicine Services PROGRESS NOTE Patient Name: [...] Date/Time Wound Culture - Swab, Leg, Right [[id number]] (Abnormal) (Susceptibility) Collected: 04/07/252106 Lab Status: Final [...] Row Name 04/06/25 1143 Sit-Stand Transfer Sit-Stand [place] (Transfers) modified independence -LM Comment, (Sit-Stand Transfer) Pt stood from recliner. Not holding onto walker, pt able to pull his pants up while balancing on his one leg. -LM Row Name 04/06/25 1143 Gait/Stairs (Locomotion) [place] Level (Gait) modified independence -LM Distance in [...] Nurse Physical Therapy Education Title: PT OT TELETYPE ADJUSTER Therapies (Done) Topic: Physical Therapy (Done) Point: [...] Description Service Date Service Provider Modifiers Qty [id number] PT EVAL LOW COMPLEXITY 3 04/06/2025 Susan [...] mg Daily 04/05/2025 -- Route: Oral heparin 75906 units/250 mL (100 units/mL) in 0.45 % [...] -- Admin Instructions: Open Order & Select [facility] Electrolyte Replacement Protocol Algorithm to View Details [...] Dean MD April 21 vs April 22 [facility] [address], [address] [facility], [address] Please schedule at [phone] VONDA Garcia 04/11/25 08:32 EDT Cosigned by Sushil Dean Jr., MD at 04/19/2025 10:33 AM EDT Associated attestation - Sushil Dean Jr., MD - 04/19/2025 10:33 AM EDT I have reviewed this documentation and agree. * Rosario Hill APRN - 04/10/2025 1:24 PM EDT Images from the original note were not included. [facility] Medicine Services PROGRESS NOTE Patient Name: [...] Date/Time Wound Culture - Swab, Leg, Right [[id number]] (Abnormal) (Susceptibility) Collected: 04/07/252106 Lab Status: Final result Specimen: Swab from Leg, Right Updated: 04/10/25 1038 Wound Culture Light growth (2+) Staphylococcus aureus, MRSA Comment: Methicillin resistant Staphylococcus aureus, Patient may be an isolation risk. Gram Stain Few (2+) WBCs seen No organisms seen Susceptibility Staphylococcus aureus, MRSA ALZIA Clindamycin Susceptible Erythromycin Resistant Oxacillin Resistant Rifampin [...] mg Daily 04/05/2025 -- Route: Oral heparin 59993 units/250 mL (100 units/mL) in 0.45 % [...] -- Admin Instructions: Open Order & Select [facility] Electrolyte Replacement Protocol Algorithm to View Details [...] -- Admin Instructions: Open Order & Select [facility] Electrolyte Replacement Protocol Algorithm to View Details [...] -- Admin Instructions: Open Order & Select [facility] Electrolyte Replacement Protocol Algorithm to View Details [...] Dean MD April 21 vs April 22 [facility] [address], [address] [facility], [address] Please schedule at [phone] VONDA Garcia 04/10/25 09:01 EDT Cosigned by Sushil Dean Jr., MD at 04/19/2025 10:33 AM EDT Associated attestation - Sushil Dean Jr., MD - 04/19/2025 10:33 AM EDT I have reviewed this documentation and agree. * Carlton Mead MD - 04/10/2025 7:38 AM EDT Images from the original note were not included. INFECTIOUS DISEASE Progress Note Won Dennis 1980 [id number] Date of Consult: 04/10/2025 Admission Date: 04/04/2025 [...] which prompted him to seek treatment at [facility]. He is known to Dr. [...] wound 05/09/25. HDS, on Heparin gtt. Currently [facility] has been asked to manage [...] Procedure: WOUND VACUUM ASSISTED CLOSURE; Surgeon: Sushil Daen Jr., MD; Location: [facility]; Service: Orthopedics; [...] Jr., MD, 20 mg at 04/09/25906 heparin 55560 units/250 mL (100 units/mL) in 0.45 % [...] vancomycin 2750 mg/500 mL 0.9% NS IVPB ([facility]) Ordering Provider: Mario Crowley, DO 20 mg/kg [...] Units Date/Time FL C Arm During Surgery [[id number]] Resulted: 04/07/252137 Updated: 04/07/252137 Narrative: This procedure was auto-finalized with no dictation required. MRI Tibia Fibula Right With & Without Contrast [[id number]] Collected: 04/07/25 0938 Updated: 04/07/25 1001 Narrative: [...] Buenrostro 04/07/2025 9:58 AM EDT Workstation ID: [id number] Impression: Recurrent Right BKA stump abscess/cellulitis- this [...] disposition with the pharmacist at [facility] today. I will sign off Outpatient orders: 1. Outpatient intravenous antibiotic therapy: Daptomycin 800 mg IV daily to be supplied by [facility] 2. Home health to perform weekly PICC [...] MD 04/10/2025 07:38 EDT * Yaya Hamiltonn, [facility] - 04/10/2025 7:17 AM EDT [...] original note were not included. [facility] Medicine Services PROGRESS NOTE Patient Name: [...] Date/Time Wound Culture - Swab, Leg, Right [[id number]] (Abnormal) Collected: 04/07/252106 Lab Status: Preliminary result [...] Jason DO Preeti 04/09/25 * Larisa Hamilton [facility] - 04/09/2025 11:36 AM EDT [...] mg Daily 04/05/2025 -- Route: Oral heparin 85121 units/250 mL (100 units/mL) in 0.45 % [...] -- Admin Instructions: Open Order & Select [facility] Electrolyte Replacement Protocol Algorithm to View Details [...] -- Admin Instructions: Open Order & Select [facility] Electrolyte Replacement Protocol Algorithm to View Details [...] -- Admin Instructions: Open Order & Select [facility] Electrolyte Replacement Protocol Algorithm to View Details [...] in 2 weeks for incision check, radiographs [facility] [address], [address] [facility], [address] Please schedule at [phone] VONDA Garcia 04/09/25 09:18 EDT Cosigned by Sushil Dean Jr., MD at 04/19/2025 10:33 AM EDT Associated attestation - Sushil Dean Jr., MD - 04/19/2025 10:33 AM EDT I have reviewed this documentation and agree. * Carlton Mead MD - 04/09/2025 8:25 AM EDT Images from the original note were not included. INFECTIOUS DISEASE Progress Note Won Dennis 1980 [id number] Date of Consult: 04/09/2025 Admission Date: 04/04/2025 [...] which prompted him to seek treatment at [facility]. He is known to Dr. [...] wound 05/09/25. HDS, on Heparin gtt. Currently [facility] has been asked to manage [...] Sushil Dean Jr., MD; Location: [facility] OR; Service: Orthopedics; Laterality: Right; PLACEMENT OF WOUND VAC Right 04/07/2025 Procedure: WOUND VACUUM ASSISTED CLOSURE; Surgeon: Sushil Dean Jr., MD; Location: [facility] OR; Service: Orthopedics; Laterality: Right; [...] MD, 20 mg at 04/08/25 0800 heparin 72586 units/250 mL (100 units/mL) in 0.45 % [...] Units Date/Time FL C Arm During Surgery [[id number]] Resulted: 04/07/252137 Updated: 04/07/252137 Narrative: This procedure was auto-finalized with no dictation required. MRI Tibia Fibula Right With & Without Contrast [[id number]] Collected: 04/07/2538 Updated: 04/07/25 1001 Narrative: MRI [...] Buenrostro 04/07/2025 9:58 AM EDT Workstation ID: [id number] Impression: Recurrent Right BKA stump abscess/cellulitis- this [...] mg IV daily to be supplied by [facility] 2. Home health to perform [...] original note were not included. [facility] Medicine Services PROGRESS NOTE Patient Name: [...] Buenrostro 04/07/2025 9:58 AM EDT Workstation ID: [id number] I have personally reviewed the therapy plans: [...] Jason Álvarez DO 04/08/25 * Larisa Hamilton [facility] - 04/08/2025 11:48 AM EDT [...] -- Admin Instructions: Open Order & Select [facility] Electrolyte Replacement Protocol Algorithm to View Details [...] mg Daily 04/05/2025 -- Route: Oral heparin 04158 units/250 mL (100 units/mL) in 0.45 % [...] -- Admin Instructions: Open Order & Select [facility] Electrolyte Replacement Protocol Algorithm to View Details [...] -- Admin Instructions: Open Order & Select [facility] Electrolyte Replacement Protocol Algorithm to View Details [...] -- Admin Instructions: Open Order & Select [facility] Electrolyte Replacement Protocol Algorithm to View Details [...] INFECTIOUS DISEASE Progress Note Won Dennis 1980 [id number] Date of Consult: 04/08/2025 Admission Date: 04/04/2025 [...] which prompted him to seek treatment at [facility]. He is known to Dr. [...] wound 05/09/25. HDS, on Heparin gtt. Currently [facility] has been asked to manage [...] Sushil Dean Jr., MD; Location: [facility] OR; Service: Orthopedics; Laterality: Right; PLACEMENT OF WOUND VAC Right 04/07/2025 Procedure: WOUND VACUUM ASSISTED CLOSURE; Surgeon: Sushil Dean Jr., MD; Location: [facility] OR; Service: Orthopedics; Laterality: Right; [...] Jr., MD, 20 mg at 04/07/25950 heparin 00297 units/250 mL (100 units/mL) in 0.45 % [...] Units Date/Time FL C Arm During Surgery [[id number]] Resulted: 04/07/252137 Updated: 04/07/252137 Narrative: This procedure was auto-finalized with no dictation required. MRI Tibia Fibula Right With & Without Contrast [[id number]] Collected: 04/07/2538 Updated: 04/07/25 1001 Narrative: MRI [...] Buenrostro 04/07/2025 9:58 AM EDT Workstation ID: [id number] Impression: 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 (Treated by ID in [place] Dr[facility] Harris). Dr. Torres treated him with [...] original note were not included. [facility] Medicine Services PROGRESS NOTE Patient Name: [...] Buenrostro 04/07/2025 9:58 AM EDT Workstation ID: [id number] I have personally reviewed the therapy plans: [...] Jason Álvarez DO 04/07/25 * Larisa Hamilton [facility] - 04/07/2025 11:56 AM EDT [...] INFECTIOUS DISEASE Progress Note Won Dennis 1980 [id number] Date of Consult: 04/07/2025 Admission Date: 04/04/2025 [...] which prompted him to seek treatment at [facility]. He is known to Dr. [...] wound 05/09/25. HDS, on Heparin gtt. Currently [facility] has been asked to manage [...] Application, 1 Application, Topical, Q12H, Ayah Valentin, [employer], 1 Application at 04/06/252101 DAPTOmycin (CUBICIN) 800 [...] Shepherd MD, 20 mg at 04/06/25899 heparin 71635 units/250 mL (100 units/mL) in 0.45 % NaCl infusion, 18 Units/kg/hr, Intravenous, Titrated, Cherri Beatty, [facility], Last Rate: 24.1 mL/hr at [...] 10 mL, 10 mL, Intravenous, Q12H, Leonora Shephred MD, 10 mL at 04/06/25 0900 sodium [...] With & Without Contrast - In process [[id number]] Resulted: 04/07/25828 Updated: 04/07/25828 This result has not been signed. Information might be incomplete. MRI Tibia Fibula Right With & Without Contrast [[id number]] Collected: 04/04/252256 Updated: 04/04/252302 Narrative: MRI TIBIA [...] MD 04/04/2025 11:00 PM EDT Workstation ID: [id number] Impression: 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 (Treated by ID in [place] [facility] Harris). Dr. Torres treated him with [...] mg Daily 04/05/2025 -- Route: Oral heparin 95795 units/250 mL (100 units/mL) in 0.45 % [...] -- Admin Instructions: Open Order & Select [facility] Electrolyte Replacement Protocol Algorithm to View Details [...] -- Admin Instructions: Open Order & Select [facility] Electrolyte Replacement Protocol Algorithm to View Details [...] MD 04/07/25 06:07 EDT * Cherri Beatty [facility] - 04/06/2025 1:47 PM EDT [...] original note were not included. [facility] Medicine Services PROGRESS NOTE Patient Name: [...] MD 04/04/2025 11:00 PM EDT Workstation ID: [id number] I have personally reviewed the therapy plans: [...] mg Daily 04/05/2025 -- Route: Oral heparin 80381 units/250 mL (100 units/mL) in 0.45 % [...] -- Admin Instructions: Open Order & Select [facility] Electrolyte Replacement Protocol Algorithm to View Details [...] INFECTIOUS DISEASE follow up. Won Dennis 1980 [id number] Date of Consult: 04/06/2025 Admission Date: 04/04/2025 [...] which prompted him to seek treatment at [facility]. He is known to Dr. [...] wound 05/09/25. HDS, on Heparin gtt. Currently [facility] has been asked to manage [...] Application, 1 Application, Topical, Q12H, Ayah Valentin, [employer], 1 Application at 04/06/25 0859 DAPTOmycin (CUBICIN) [...] MD, 20 mg at 04/06/25 0900 heparin 44222 units/250 mL (100 units/mL) in 0.45 % NaCl infusion, 18 Units/kg/hr, Intravenous, Titrated, Cherri Beatty [facility], Last Rate: 24.1 mL/hr at [...] Tibia Fibula Right With & Without Contrast [[id number]] Collected: 04/04/252256 Updated: 04/04/252302 Narrative: MRI TIBIA [...] MD 04/04/2025 11:00 PM EDT Workstation ID: [id number] Impression: 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 (Treated by ID in [place] Dr[facility] Harris). Dr. Torres treated him with [...] MD 04/06/2025 16:00 EDT * Cherri Beatty, [facility] - 04/05/2025 3:01 PM EDT [...] original note were not included. [facility] Medicine Services PROGRESS NOTE Patient Name: [...] MD 04/04/2025 11:00 PM EDT Workstation ID: [id number] I have personally reviewed the therapy plans: [...] original note were not included. [facility] Medicine Services HISTORY AND PHYSICAL Patient [...] MD 04/04/2025 11:00 PM EDT Workstation ID: [id number] Assessment & Plan Assessment & Plan Won [...] 4FR PICC placed by Rhoda Bonner RN [facility], tip verified by 3CG see LDA. * Sushil Dean Jr., MD - 04/05/2025 8:07 AM EDTAssociated Order(s): IP CONSULT TO ORTHOPEDIC SURGERY [facility], [facility] [address] [place] [address] Orthopedic Consult Patient: Won Dennis Date of Admission: 04/04/2025 4:10 PM Date of : 1980 Attending Physician: Jason Álvarez DO Consulting Physician: Sushil Dean Jr, MD Chief Complaint: 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 male admitted to [facility] with 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]. He has [...] was evaluated in the emergency department in [place], was discharged with instructions for follow-up. He [...] tablet by mouth Daily. 04/03/2025 Morning Lactobacillus-Inulin ([facility] [employer]) capsule Take 200 mg by mouth Daily. [...] MD 04/04/2025 11:00 PM EDT Workstation ID: [id number] Assessment: Right BKA infection 44-year-old male with [...] DISEASE CONSULT/INITIAL HOSPITAL VISIT Won Dennis 1980 [id number] Date of Consult: 04/05/2025 Admission Date: 04/04/2025 [...] which prompted him to seek treatment at [facility]. He is known to Dr. [...] wound 05/09/25. HDS, on Heparin gtt. Currently [facility] has been asked to manage [...] Leonora Shepherd MD, 40 mg at 04/04/25 3309 sennosides-docusate (PERICOLACE) 8.6-50 MG per tablet 2 [...] MD, 20 mg at 04/05/25 0916 heparin 24271 units/250 mL (100 units/mL) in 0.45 % [...] Tibia Fibula Right With & Without Contrast [[id number]] Collected: 04/04/252256 Updated: 04/04/252302 Narrative: MRI TIBIA [...] represent a small area of phlegmonous change (ipdlot14 image 10) measuring approximately 1.6 cm which [...] MD 04/04/2025 11:00 PM EDT Workstation ID: [id number] Impression: 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 (Treated by ID in [place] Dr[facility] Harris). Dr. Torres treated him with [...] MD - 04/08/2025 3:51 PM EDT [facility] OPERATIVE REPORT PATIENT NAME: Won Dennis DATE OF : 1980 PREOP DIAGNOSIS: Right Right below-knee amputation infection POSTOP DIAGNOSIS: Same. PROCEDURE: Right Right 18904: Secondary closure below-knee amputation SURGEON: Sushil Dean MD OPERATIVE TEAM: Chief Embalmer: Susi Grullon RN Scrub Person: Mary Paredes Scrub Person Extra: Hortencia Toribio Other: Katt Gotti RN; Charis Neville RN ANESTHETIST: Anesthesiologist: Ulises Hoffman MD ARTIFICIAL LIMB MAKER: Stan Casillas CRNA Student Nurse Strategic Marketing Manager: Karol Albert SRNA ANESTHESIA: Choice ESTIMATED [...] CULTURE (Canceled) Sushil Dean Jr., MD 04/08/25 9588 Description: RIGHT LEG DEEP WOUND FOR CULTURE [...] Jr., MD - 04/07/2025 9:03 PM EDT [facility] [address] [address] OPERATIVE REPORT PATIENT NAME: Won Dennis DATE OF : 1980 PREOP DIAGNOSIS: Right Right below knee amputation stump infection POSTOP DIAGNOSIS: Same. PROCEDURE: Right Right 31822: Incision and drainage of surgical site infection 56793: Debridement of skin, subcutaneous tissue, muscle 97997: Wound vacuum-assisted closure SURGEON: Sushil Dean MD OPERATIVE TEAM: Chief Embalmer: Anum Sanchez RN Scrub Person: Hortencia Toribio; Gerald Ivey EYEGLASS MAKER: Anesthesiologist: Luci Alonso DO ANESTHESIA: General ESTIMATED [...] ago swellling of the area. seen at [facility] yesterday for CT and US, [...] this chart in the absence of a mainspring strip inspector. No orders to display RADIOLOGY: [x] Radiologist's [...] 04/11/2025 1:30 PM EDT Continued Stay Note [place] Patient Name: Won Dennis Today's Date: 04/11/2025 Admit Date: 04/04/2025 Plan: Home with outpatient infusion. Discharge Plan Row Name 04/11/25 1155 Plan Plan Home with outpatient infusion. Final Discharge Disposition Code 01 - home or self-care Final Note Patient discharging today. He is discharging [facility] with [facility] at 8[facility]00 am tomorrow. They will do PICC line dressing changes. DEBRA has spoke with Dena at [facility] today multiple times to get setup [...] to get IV ABX at home with [facility]; however, Medicaid lapsed on 04/08. DEBRA was unaware until this morning that Medicaid has lapsed. Patient explained that he has Medicare A and B. CM spoke with KELLEE and given themhis Medicare number [id number], she sent it to Admission. DEBRA spoke with Kerri, with [facility], and explained that he had Medicare A and B. However, it will not cover home infusion. It will be $64.00 a day out of packet. Patients can go to the Infusion center at [facility], and it will cover the cost as an outpatient. He will need to go there every day for infusion. They will be able to do the patients' PICC line dressing changes and lab work. CM called [facility] they can accept patient and start him. He is known for their facility. The Facility will need to run it through his insurance first. CM faxed the orders over to [facility] at [phone]. CM will follow up with them tomorrow at [facility] to make sure they received the orders. [...] with patient at bedside today. [facility]. Patient getting PICC line [...] note were not included. 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 Patient lives with and his [address] [facility]. 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 He has walker, cane, shower chair, and crutches. He requested a wheelchair for home. CM will order wheelchair through [employer]. He is not current with home health services. PCP is Dr. Jordan. Insurance is [facility] [employer] [place]. Patient discharge plan is home with priavte transport. CM will follow for any discharge needs. Final Discharge Disposition Code 01 - home or self-care Continued Care and Services - Admitted Since 04/04/2025 No active coordination exists. Demographic Summary Row Name 04/07/25 1143 General Information Arrived From hospital Preferred Language Peruvian Functional Status Row Name 04/07/25 1143 Functional [...] 3:40 AM EDT) [facility] WBC 7.87 3.40 - 10.80 10*3/mm3 04/11/2025 4:02 AM EDT [facility] RBC 4.70 4.14 - 5.80 10*6/mm3 04/11/2025 4:02 AM EDT [facility] Hemoglobin 12.8(L) 13.0 - 17.7 g/dL 04/11/2025 4:02 AM EDT [facility] Hematocrit 40.5 37.5 - 51.0 % 04/11/2025 4:02 AM EDT [facility] MCV 86.2 79.0 - 97.0 fL 04/11/2025 4:02 AM EDT [facility] MCH 27.2 26.6 - 33.0 pg 04/11/2025 4:02 AM EDT [facility] MCHC 31.6 31.5 - 35.7 g/dL 04/11/2025 4:02 AM EDT [facility] RDW 12.9 12.3 - 15.4 % 04/11/2025 4:02 AM EDT [facility] RDW-SD 40.5 37.0 - 54.0 fl 04/11/2025 4:02 AM EDT [facility] MPV 9.2 6.0 - 12.0 fL 04/11/2025 4:02 AM EDT [facility] Platelets 267 140 - 450 10*3/mm3 04/11/2025 4:02 AM [facility] Neutrophil % 59.5 42.7 - 76.0 % 04/11/2025 4:02 AM [facility] Lymphocyte % 26.3 19.6 - 45.3 % 04/11/2025 4:02 AM [facility] Monocyte % 9.3 5.0 - 12.0 % 04/11/2025 4:02 AM [facility] Eosinophil % 4.1 0.3 - 6.2 % 04/11/2025 4:02 AM [facility] Basophil % 0.4 0.0 - 1.5 % 04/11/2025 4:02 AM [facility] Immature Grans % 0.4 0.0 - 0.5 % 04/11/2025 4:02 AM [facility] Neutrophils, Absolute 4.69 1.70 - 7.00 10*3/mm3 04/11/2025 4:02 AM [facility] Lymphocytes, Absolute 2.07 0.70 - 3.10 10*3/mm3 04/11/2025 4:02 AM [facility] Monocytes, Absolute 0.73 0.10 - 0.90 10*3/mm3 04/11/2025 4:02 AM [facility] Eosinophils, Absolute 0.32 0.00 - 0.40 10*3/mm3 04/11/2025 4:02 AM [facility] Basophils, Absolute 0.03 0.00 - 0.20 10*3/mm3 04/11/2025 4:02 AM [facility] Immature Grans, Absolute 0.03 0.00 - 0.05 10*3/mm3 04/11/2025 4:02 AM [facility] nRBC 0.0 0.0 - 0.2 /100 WBC 04/11/2025 4:02 AM [facility] Blood Venipuncture / Unknown 04/11/2025 3:40 AM EDT 04/11/2025 3:59 AM EDT us Sushil Dean Jr., MD LAB BLOOD ORDERABLES Fi nal Result [facility]
[address] [place] [address], * (ABNORMAL) Comprehensive Metabolic Panel (04/11/2025 3:40 AM EDT) Glucose 108(H) 65 - 99 mg/dL 04/11/2025 4:19 AM EDT [facility] BUN 12.5 6.0 - 20.0 mg/dL 04/11/2025 4:19 AM EDT [facility] Creatinine 0.68(L) 0.76 - 1.27 mg/dL 04/11/2025 4:19 AM EDT [facility] Sodium 140 136 - 145 mmol/L 04/11/2025 4:19 AM EDT [facility] Potassium 3.8 3.5 - 5.2 mmol/L 04/11/2025 4:19 AM EDT [facility] Chloride 105 98 - 107 mmol/L 04/11/2025 4:19 AM EDT [facility] CO2 28.2 22.0 - 29.0 mmol/L 04/11/2025 4:19 AM EDT [facility] Calcium 8.2(L) 8.6 - 10.5 mg/dL 04/11/2025 4:19 AM EDT [facility] Total Protein 6.1 6.0 - 8.5 g/dL 04/11/2025 4:19 AM EDT [facility] Albumin 3.1(L) 3.5 - 5.2 g/dL 04/11/2025 4:19 AM EDT [facility] ALT (SGPT) 52(H) 1 - 41 U/L 04/11/2025 4:19 AM EDT [facility] AST (SGOT) 40 1 - 40 U/L 04/11/2025 4:19 AM EDT [facility] Alkaline Phosphatase 99 39 - 117 U/L 04/11/2025 4:19 AM EDT [facility] Total Bilirubin 0.2 0.0 - 1.2 mg/dL 04/11/2025 4:19 AM EDT [facility] Globulin 3.0 gm/dL 04/11/2025 4:19 AM EDT [facility] Comment:Calculated Result A/G Ratio 1.0 g/dL 04/11/2025 4:19 AM EDT [facility] BUN/Creatinine Ratio 18.4 7.0 - 25.0 04/11/2025 4:19 AM EDT [facility] Anion Gap 6.8 5.0 - 15.0 mmol/L 04/11/2025 4:19 AM EDT [facility] eGFR 117.5 >60.0 mL/min/1.7 3 04/11/2025 4:19 AM EDT [facility] Blood Venipuncture / Unknown 04/11/2025 3:40 AM EDT 04/11/2025 3:56 AM EDT [facility] - 04/11/2025 4:19 [...] Hill APRN LAB BLOOD ORDERABLES Final Result [facility]
[address] [place] [address], * (ABNORMAL) CBC Auto Differential (04/10/2025 3:46 AM EDT) [facility] WBC 9.60 3.40 - 10.80 10*3/mm3 04/10/2025 3:56 AM EDT [facility] RBC 4.67 4.14 - 5.80 10*6/mm3 04/[facility] Hemoglobin 12.9(L) 13.0 - 17.7 g/dL 04/10/2025 3:56 AM EDT [facility] Hematocrit 40.1 37.5 - 51.0 % 04/10/2025 3:[facility] MCV 85.9 79.0 - 97.0 fL 04/10/2025 3:56 [facility] MCH 27.6 26.6 - 33.0 pg 04/10/2025 3:56 AM [facility] MCHC 32.2 31.5 - 35.7 g/dL 04/10/2025 3:56 [facility] RDW 12.9 12.3 - 15.4 % 04/10/2025 3:56 AM [facility] RDW-SD 40.5 37.0 - 54.0 fl 04/10/2025 3:56 AM [facility] MPV 9.5 6.0 - 12.0 fL 04/10/2025 3:56 AM [facility] Platelets 227 140 - 450 10*3/mm3 04/10/2025 3:56 AM EDT [facility] Neutrophil % 59.1 42.7 - 76.0 % 04/10/2025 3:56 [facility] Lymphocyte % 29.0 19.6 - 45.3 % 04/10/2025 3:56 [facility] Monocyte % 8.1 5.0 - 12.0 % 04/10/2025 3:56 [facility] Eosinophil % 3.2 0.3 - 6.2 % 04/10/2025 3:56 AM EDT [facility] Basophil % 0.4 0.0 - 1.5 % 04/10/2025 3:56 AM EDT [facility] Immature Grans % 0.2 0.0 - 0.5 % 04/10/2025 3:56 AM EDT [facility] Neutrophils, Absolute 5.67 1.70 - 7.00 10*3/mm3 04/10/2025 3:56 AM EDT [facility] Lymphocytes, Absolute 2.78 0.70 - 3.10 10*3/mm3 04/10/2025 3:56 AM EDT [facility] Monocytes, Absolute 0.78 0.10 - 0.90 10*3/mm3 04/10/2025 3:56 AM EDT [facility] Eosinophils, Absolute 0.31 0.00 - 0.40 10*3/mm3 04/10/2025 3:56 AM EDT [facility] Basophils, Absolute 0.04 0.00 - 0.20 10*3/mm3 04/10/2025 3:56 AM EDT [facility] Immature Grans, Absolute 0.02 0.00 - 0.05 10*3/mm3 04/10/2025 3:56 AM EDT [facility] nRBC 0.0 0.0 - 0.2 /100 WBC 04/10/2025 3:56 AM EDT [facility] Blood Venipuncture / Unknown 04/10/2025 3:46 AM EDT 04/10/2025 3:53 AM EDT Jason Álvarez DO LAB BLOOD ORDERABLES Final Resul t [facility]
[address] [place] [address], * (ABNORMAL) Basic Metabolic Panel (04/10/2025 3:46 AM EDT) [facility] Glucose 125(H) 65 - 99 mg/dL 04/10/2025 4:20 AM EDT [facility] BUN 15.9 6.0 - 20.0 mg/dL 04/10/2025 4:20 AM T [facility] Creatinine 0.77 0.76 - 1.27 mg/dL 04/10/2025 4:20 AM T [facility] Sodium 137 136 - 145 mmol/L 04/10/2025 4:20 AM [facility] Potassium 3.9 3.5 - 5.2 mmol/L 04/10/2025 4:20 AM EDT [facility] Chloride 102 98 - 107 mmol/L 04/10/2025 4:20 AM EDT [facility] CO2 26.9 22.0 - 29.0 mmol/L 04/10/2025 4:20 AM [facility] Calcium 7.9(L) 8.6 - 10.5 mg/dL 04/10/2025 4:20 AM [facility] BUN/Creatinine Ratio 20.6 7.0 - 25.0 04/10/2025 4:20 AM [facility] Anion Gap 8.1 5.0 - 15.0 mmol/L 04/10/2025 4:20 AM [facility] eGFR 113.2 >60.0 mL/min/1.7 3 04/10/2025 4:20 AM [facility] Blood Venipuncture / Unknown 04/10/2025 3:46 AM EDT 04/10/2025 3:52 AM EDT [facility] - 04/10/2025 4:20 [...] DO LAB BLOOD ORDERABLES Final Resul t [facility]
[address] [place] [address], * Heparin Anti-Xa (04/10/2025 3:46 AM EDT) Heparin Anti-Xa (UFH) 0.35 0.30 - 0.70 IU/ml 04/10/2025 4:23 AM EDT [facility] Blood Venipuncture / Unknown 04/10/2025 3:46 AM EDT 04/10/2025 3:53 AM EDT [facility] LAB BLOOD ORDERABLES Final R esult Performing Organization Address City/[facility]/ZIP Co de Phone Number [facility]
[address] [place] [address], * Heparin Anti-Xa (04/09/2025 10:05 AM EDT) Heparin Anti-Xa (UFH) 0.36 0.30 - 0.70 IU/ml 04/09/2025 11:12 AM EDT [facility] Blood Venipuncture / Unknown 04/09/2025 10:05 AM EDT 04/09/2025 10:[address] [facility] LAB BLOOD ORDERABLES Final R esult [facility]
[address] [place] [address], * (ABNORMAL) CBC Auto Differential (04/09/2025 4:18 AM EDT) WBC 11.00(H) 3.40 - 10.80 10*3/mm3 04/09/2025 4:50 AM [facility] RBC 4.70 4.14 - 5.80 10*6/mm3 04/09/2025 4:50 AM EDT [facility] Hemoglobin 13.0 13.0 - 17.7 g/dL 04/09/2025 4:50 AM EDT [facility] Hematocrit 40.4 37.5 - 51.0 % 04/09/2025 4:50 AM EDT [facility] MCV 86.0 79.0 - 97.0 fL 04/09/2025 4:50 AM EDT [facility] MCH 27.7 26.6 - 33.0 pg 04/09/2025 4:[facility] MCHC 32.2 31.5 - 35.7 g/dL 04/09/2025 4:50 [facility] RDW 12.8 12.3 - 15.4 % 04/09/2025 4:50 [facility] RDW-SD 39.9 37.0 - 54.0 fl 04/09/2025 4:50 AM [facility] MPV 10.0 6.0 - 12.0 fL 04/09/2025 4:50 AM [facility] Platelets 211 140 - 450 10*3/mm3 04/09/2025 4:50 [facility] Neutrophil % 74.8 42.7 - 76.0 % 04/09/2025 4:50 AM EDT [facility] Lymphocyte % 15.4(L) 19.6 - 45.3 % 04/09/2025 4:50 AM EDT [facility] Monocyte % 8.5 5.0 - 12.0 % 04/09/2025 4:50 AM EDT [facility] Eosinophil % 0.6 0.3 - 6.2 % 04/09/2025 4:50 [facility] Basophil % 0.4 0.0 - 1.5 % 04/09/2025 4:50 AM EDT [facility] Immature Grans % 0.3 0.0 - 0.5 % 04/09/2025 4:50 AM EDT [facility] Neutrophils, Absolute 8.23(H) 1.70 - 7.00 10*3/mm3 04/09/2025 4:50 AM EDT [facility] Lymphocytes, Absolute 1.69 0.70 - 3.10 10*3/mm3 04/09/2025 4:50 AM EDT [facility] Monocytes, Absolute 0.94(H) 0.10 - 0.90 10*3/mm3 04/09/2025 4:50 AM EDT [facility] Eosinophils, Absolute 0.07 0.00 - 0.40 10*3/mm3 04/09/2025 4:50 AM EDT [facility] Basophils, Absolute 0.04 0.00 - 0.20 10*3/mm3 04/09/2025 4:50 AM EDT [facility] Immature Grans, Absolute 0.03 0.00 - 0.05 10*3/mm3 04/09/2025 4:50 AM EDT [facility] nRBC 0.0 0.0 - 0.2 /100 WBC 04/09/2025 4:50 AM EDT [facility] Blood Venipuncture / Unknown 04/09/2025 4:18 AM EDT 04/09/2025 4:31 AM EDT Sushil Dean Jr., MD LAB BLOOD ORDERABLES Fi nal Result [facility]
[address] [place] [address], * Heparin Anti-Xa (04/09/2025 4:18 AM EDT) Heparin Anti-Xa (UFH) 0.41 0.30 - 0.70 IU/ml 04/09/2025 4:53 AM EDT [facility] Blood Venipuncture / Unknown 04/09/2025 4:18 AM EDT 04/09/2025 4:31 AM EDT Una Wheeleroy PharmD LAB BLOOD ORDERABLES Final R esult [facility]
[address] [place] [address], * (ABNORMAL) Basic Metabolic Panel (04/09/2025 4:18 AM EDT) Pathologist [facility] Glucose 147(H) 65 - 99 mg/dL 04/09/2025 5:33 AM EDT [facility] BUN 23.0(H) 6.0 - 20.0 mg/dL 04/09/2025 5:33 AM EDT [facility] Creatinine 1.15 0.76 - 1.27 mg/dL 04/09/2025 5:33 AM EDT [facility] Sodium 135(L) 136 - 145 mmol/L 04/09/2025 5:33 AM EDT [facility] Potassium 4.2 3.5 - 5.2 mmol/L 04/09/2025 5:33 AM EDT [facility] Chloride 100 98 - 107 mmol/L 04/09/2025 5:33 AM EDT [facility] CO2 26.0 22.0 - 29.0 mmol/L 04/09/2025 5:33 AM EDT [facility] Calcium 8.2(L) 8.6 - 10.5 mg/dL 04/09/2025 5:33 AM EDT [facility] BUN/Creatinine Ratio 20.0 7.0 - 25.0 04/09/2025 5:33 AM EDT [facility] Anion Gap 9.0 5.0 - 15.0 mmol/L 04/09/2025 5:33 AM EDT [facility] eGFR 80.5 >60.0 mL/min/1.7 3 04/09/2025 5:33 AM EDT [facility] Blood Venipuncture / Unknown 04/09/2025 4:18 AM EDT 04/09/2025 4:29 AM EDT Narrative [facility] - 04/09/2025 5:33 AM [...] Result Performing Organization Address [facility] Co de Phone Number [facility]
[address] [place] [address], * Wound Culture - Swab, Leg, Right (04/08/2025 3:40 PM EDT) Wound Culture No growth at 3 days ALIZA 04/11/2025 10:40 AM EDT [facility] Gram Stain Few (2+) WBCs seen 04/11/2025 10:40 AM EDT [facility] Gram Stain No organisms seen 04/11/2025 10:40 AM EDT [facility] Swab Structure of right lower limb / Unknown 04/08/2025 3:40 PM EDT 04/08/2025 8:05 PM EDT Sushil Dean Jr., MD MICROBIOLOGY - GENERAL ORDERABLES Final Result Performing Organization Address City/[facility]/ZIP Co de Phone Number [facility]
[address] [id number], [facility]
[address] [place] [address], * Anaerobic Culture - Swab, Leg, Right (04/08/2025 3:40 PM EDT) Pathologist [facility] Anaerobic Culture No anaerobes isolated at 5 days ALIZA 04/13/2025 7:24 AM EDT [facility] Swab Structure of right lower limb / Unknown 04/08/2025 3:40 PM EDT 04/08/2025 8:05 PM EDT Sushil Dean Jr., MD MICROBIOLOGY - GENERAL ORDERABLES Final Result Performing Organization Address City/[facility] Co de Phone Number [facility]
[address] [place] [address], [place] [phone] * Scan Slide (04/08/2025 8:41 AM EDT) Pathologist [facility] RBC Morphology Normal Normal 04/08/2025 11:02 AM EDT [facility] WBC Morphology Normal Normal 04/08/2025 11:02 AM EDT [facility] Platelet Estimate Adequate Normal 04/08/2025 11:02 AM EDT [facility] Clumped Platelets Present None Seen 04/08/2025 11:02 AM EDT [facility] Blood Venipuncture / Unknown 04/08/2025 8:41 AM EDT 04/08/2025 9:10 AM EDT Una LundbergD LAB BLOOD ORDERABLES Final R esult Performing Organization Address City/[facility]/ZIP Co de Phone Number [facility]
[address] [place] [address], [place] [phone] * (ABNORMAL) CBC Auto Differential (04/08/2025 8:41 AM EDT) Pathologist [facility] WBC 10.07 3.40 - 10.80 10*3/mm3 04/08/2025 11:02 AM EDT [facility] RBC 5.01 4.14 - 5.80 10*6/mm3 04/08/2025 11:02 AM EDT [facility] Hemoglobin 14.0 13.0 - 17.7 g/dL 04/08/2025 11:02 AM [facility] Hematocrit 42.7 37.5 - 51.0 % 04/08/2025 11:02 AM [facility] MCV 85.2 79.0 - 97.0 fL 04/08/2025 11:02 AM [facility] MCH 27.9 26.6 - 33.0 pg 04/08/2025 11:02 AM [facility] MCHC 32.8 31.5 - 35.7 g/dL 04/08/2025 11:02 AM [facility] RDW 12.6 12.3 - 15.4 % 04/08/2025 11:02 AM [facility] RDW-SD 38.9 37.0 - 54.0 fl 04/08/2025 11:02 AM [facility] MPV 11.0 6.0 - 12.0 fL 04/08/2025 11:02 AM [facility] Platelets 118(L) 140 - 450 10*3/mm3 04/08/2025 11:02 AM [facility] Neutrophil % 85.1(H) 42.7 - 76.0 % 04/08/2025 11:02 AM [facility] Lymphocyte % 9.3(L) 19.6 - 45.3 % 04/08/2025 11:02 AM [facility] Monocyte % 4.6(L) 5.0 - 12.0 % 04/08/2025 11:02 AM [facility] Eosinophil % 0.3 0.3 - 6.2 % 04/08/2025 11:02 AM [facility] Basophil % 0.2 0.0 - 1.5 % 04/08/2025 11:02 AM [facility] Immature Grans % 0.5 0.0 - 0.5 % 04/08/2025 11:02 AM [facility] Neutrophils, Absolute 8.57(H) 1.70 - 7.00 10*3/mm3 04/08/2025 11:02 AM EDT [facility] Lymphocytes, Absolute 0.94 0.70 - 3.10 10*3/mm3 04/08/2025 11:02 AM EDT [facility] Monocytes, Absolute 0.46 0.10 - 0.90 10*3/mm3 04/08/2025 11:02 AM EDT [facility] Eosinophils, Absolute 0.03 0.00 - 0.40 10*3/mm3 04/08/2025 11:02 AM EDT [facility] Basophils, Absolute 0.02 0.00 - 0.20 10*3/mm3 04/08/2025 11:02 AM EDT [facility] Immature Grans, Absolute 0.05 0.00 - 0.05 10*3/mm3 04/08/2025 11:02 AM EDT [facility] nRBC 0.0 0.0 - 0.2 /100 WBC 04/08/2025 11:02 AM EDT [facility] Blood Venipuncture / Unknown 04/08/2025 8:41 AM EDT 04/08/2025 9:10 AM EDT Una Perla PharmD LAB BLOOD ORDERABLES Final R esult [facility]
[address] [place] [address], * (ABNORMAL) Basic Metabolic Panel (04/08/2025 8:41 AM EDT) Glucose 125(H) 65 - 99 mg/dL 04/08/2025 9:51 AM EDT [facility] BUN 13.2 6.0 - 20.0 mg/dL 04/08/2025 9:51 AM EDT [facility] Creatinine 0.69(L) 0.76 - 1.27 mg/dL 04/08/2025 9:51 AM EDT [facility] Sodium 136 136 - 145 mmol/L 04/08/2025 9:51 AM EDT [facility] Potassium 4.6 3.5 - 5.2 mmol/L 04/08/2025 9:51 AM EDT [facility] Chloride 102 98 - 107 mmol/L 04/08/2025 9:51 AM EDT [facility] CO2 23.5 22.0 - 29.0 mmol/L 04/08/2025 9:51 AM EDT [facility] Calcium 8.4(L) 8.6 - 10.5 mg/dL 04/08/2025 9:51 AM EDT [facility] BUN/Creatinine Ratio 19.1 7.0 - 25.0 04/08/2025 9:51 AM EDT [facility] Anion Gap 10.5 5.0 - 15.0 mmol/L 04/08/2025 9:51 AM EDT [facility] eGFR 117.0 >60.0 mL/min/1.7 3 04/08/2025 9:51 AM EDT [facility] Blood Venipuncture / Unknown 04/08/2025 8:41 AM EDT 04/08/2025 9:09 AM EDT [facility] - 04/08/2025 9:51 [...] Jr., MD LAB BLOOD ORDERABLES nal Result [facility]
[address] [place] [address], * Heparin Anti-Xa (04/08/2025 8:41 AM EDT) Heparin Anti-Xa (UFH) 0.33 0.30 - 0.70 IU/ml 04/08/2025 9:40 AM EDT [facility] Blood Venipuncture / Unknown 04/08/2025 8:41 AM EDT 04/08/2025 9:10 AM EDT Sushil Dean Jr., MD LAB BLOOD ORDERABLES Fi nal Result [facility]
[address] [place] [address], * FL C Arm During Surgery (04/07/2025 [...] Occasional WBCs seen 04/11/2025 10:40 AM EDT [facility] Gram Stain No organisms seen 04/11/2025 10:40 AM EDT [facility] Swab Structure of right lower limb / Unknown Collection / Unknown 04/07/2025 9:14 PM EDT 04/08/2025 4:36 AM EDT Ssuhil Dean Jr., MD MICROBIOLOGY - GENERAL ORDERABLES Final Result [facility]
[address] [place] [address], [facility]
[address] [place] [address], * Anaerobic Culture - Swab, Leg, Right (04/07/2025 9:14 PM EDT) Anaerobic Culture No anaerobes isolated at 5 days ALIZA 04/13/2025 7:21 AM EDT [facility] Swab Structure of right lower limb / Unknown Collection / Unknown 04/07/2025 9:14 PM EDT 04/08/2025 4:36 AM EDT Sushil Dean Jr., MD MICROBIOLOGY - GENERAL ORDERABLES Final Result Performing Organization Address City/[facility]/ZIP Co de Phone Number [facility]
[address] [place] [address], * Anaerobic Culture - Tissue, Leg (04/07/2025 9:13 PM EDT) Anaerobic Culture No anaerobes isolated at 5 days ALIZA 04/13/2025 7:21 AM EDT [facility] Tissue Lower limb structure / Unknown Collection / Unknown 04/07/2025 9:13 PM EDT 04/08/2025 4:54 AM EDT Jason Álvarez DO MICROBIOLOGY - GENERAL ORDERABLE S Final Result [facility]
[address] [place] [address], * Tissue / Bone Culture - Tissue, Leg, Right (04/07/2025 9:13 PM EDT) Tissue Culture No growth at 3 days ALIZA 04/11/2025 10:36 AM EDT [facility] Gram Stain Rare (1+) WBCs seen 04/11/2025 10:36 AM EDT [facility] Gram Stain No organisms seen 04/11/2025 10:36 AM EDT [facility] Tissue Structure of right lower limb / Unknown 04/07/2025 9:13 PM EDT 04/08/2025 4:54 AM EDT Sushil Dean Jr., MD MICROBIOLOGY - GENERAL ORDERABLES Final Result Performing Organization Address City/[facility]/ZIP Co de Phone Number [facility]
[address] [place] [address], [place] [phone] [facility]
[address] [place] [address], [place] [phone] * (ABNORMAL) Wound Culture - Swab, Leg, Right (04/07/2025 9:07 PM EDT) Wound Culture Light growth (2+) Staphylococcus aureus, MRSA(A) ALIZA 04/10/2025 10:38 AM EDT [facility] Comment: Methicillin resistant Staphylococcus aureus, Patient may be an isolation risk. Gram Stain Few (2+) WBCs seen 04/10/2025 10:38 AM EDT [facility] [facility] Gram Stain No organisms seen 10:38 AM EDT [facility] Swab Structure of right [...] Result [facility]
[address] [place] [address], [facility]
[address] [place] [address], * Anaerobic Culture - Swab, Leg, Right (04/07/2025 9:07 PM EDT) Pathologist [facility] Anaerobic Culture No anaerobes isolated at 5 days ALIZA 04/13/2025 7:21 AM EDT [facility] Swab Structure of right lower limb / Unknown Collection / Unknown 04/07/2025 9:07 PM EDT 04/08/2025 4:36 AM EDT Sushil Dean Jr., MD MICROBIOLOGY - GENERAL ORDERABLES Final Result Performing Organization Address [facility] Co de Phone Number [facility]
[address] [place] [address], * Heparin Anti-Xa (04/07/2025 9:10 AM EDT) [facility] Heparin Anti-Xa (UFH) 0.30 0.30 - 0.70 IU/ml 04/07/2025 10:12 AM EDT [facility] Blood Venipuncture / Unknown 04/07/2025 9:10 AM EDT 04/07/2025 9:38 AM EDT Una LundbergD LAB BLOOD ORDERABLES Final R esult Performing Organization Address City/[facility]/ZIP Co de Phone Number [facility]
[address] [place] [address], * (ABNORMAL) CBC Auto Differential (04/07/2025 9:10 AM EDT) Pathologist [facility] WBC 8.63 3.40 - 10.80 10*3/mm3 04/07/2025 9:50 AM EDT [facility] RBC 5.23 4.14 - 5.80 10*6/mm3 04/07[facility]2025 [facility] Hemoglobin 14.7 13.0 - 17.7 g/dL 04/07/2025 9:50 AM [facility] Hematocrit 44.8 37.5 - 51.0 % 04/07/2025 9:50 AM [facility] MCV 85.7 79.0 - 97.0 fL 04/07/2025 9:50 AM EDT [facility] MCH 28.1 26.6 - 33.0 pg 04/07/2025 9:50 AM [facility] MCHC 32.8 31.5 - 35.7 g/dL 04/07/2025 9:50 AM [facility] RDW 12.8 12.3 - 15.4 % 04/07/2025 9:50 AM [facility] RDW-SD 39.9 37.0 - 54.0 fl 04/07/2025 9:50 AM [facility] MPV 10.8 6.0 - 12.0 fL 04/07/2025 9:50 AM [facility] Platelets 149 140 - 450 10*3/mm3 04/07/2025 9:50 AM [facility] Neutrophil % 66.7 42.7 - 76.0 % 04/07/2025 9:50 AM [facility] Lymphocyte % 20.5 19.6 - 45.3 % 04/07/2025 9:50 AM EDT [facility] Monocyte % 9.8 5.0 - 12.0 % 04/07/2025 9:50 AM [facility] Eosinophil % 2.1 0.3 - 6.2 % 04/07/2025 9:50 AM [facility] Basophil % 0.3 0.0 - 1.5 % 04/07/2025 9:50 AM [facility] Immature Grans % 0.6(H) 0.0 - 0.5 % 04/07/2025 9:50 AM EDT [facility] Neutrophils, Absolute 5.75 1.70 - 7.00 10*3/mm3 04/07/2025 9:50 AM EDT [facility] Lymphocytes, Absolute 1.77 0.70 - 3.10 10*3/mm3 04/07/2025 9:50 AM EDT [facility] Monocytes, Absolute 0.85 0.10 - 0.90 10*3/mm3 04/07/2025 9:50 AM EDT [facility] Eosinophils, Absolute 0.18 0.00 - 0.40 10*3/mm3 04/07/2025 9:50 AM EDT [facility] Basophils, Absolute 0.03 0.00 - 0.20 10*3/mm3 04/07/2025 9:50 AM EDT [facility] Immature Grans, Absolute 0.05 0.00 - 0.05 10*3/mm3 04/07/2025 9:50 AM EDT [facility] nRBC 0.0 0.0 - 0.2 /100 WBC 04/07/2025 9:50 AM EDT [facility] Blood Venipuncture / Unknown 04/07/2025 9:10 AM EDT 04/07/2025 9:38 AM EDT us Jason Álvarez DO LAB BLOOD ORDERABLES Final Resul t [facility]
[address] [place] [address], * (ABNORMAL) Basic Metabolic Panel (04/07/2025 9:10 AM EDT) Glucose 112(H) 65 - 99 mg/dL 04/07/2025 10:19 AM EDT [facility] BUN 13.1 6.0 - 20.0 mg/dL 04/07/2025 10:19 AM EDT [facility] Creatinine 0.77 0.76 - 1.27 mg/dL 04/07/2025 10:19 AM EDT [facility] Sodium 139 136 - 145 mmol/L 04/07/2025 10:19 AM EDT [facility] Potassium 4.2 3.5 - 5.2 mmol/L 04/07/2025 10:19 AM EDT [facility] Comment:Specimen hemolyzed. Result may be falsely elevated. Chloride 105 98 - 107 mmol/L 04/07/2025 10:19 AM EDT [facility] CO2 24.8 22.0 - 29.0 mmol/L 04/07/2025 10:19 AM EDT [facility] Calcium 8.6 8.6 - 10.5 mg/dL 04/07/2025 10:19 AM T [facility] BUN/Creatinine Ratio 17.0 7.0 - 25.0 04/07/2025 10:19 AM EDT [facility] Anion Gap 9.2 5.0 - 15.0 mmol/L 04/07/2025 10:19 AM T [facility] eGFR 113.2 >60.0 mL/min/1.7 3 04/07/2025 10:19 AM T [facility] Blood Venipuncture / Unknown 04/07/2025 9:10 AM EDT 04/07/2025 9:38 AM EDT Narrative [facility] - 04/07/2025 10:19 AM [...] DO LAB BLOOD ORDERABLES Final Resul t [facility]
[address] [place] [address], * MRI Tibia Fibula Right With & [...] [place] 04/07/2025 9:58 AM EDT Workstation ID: [id number] Narrative 04/07/2025 9:58 AM EDT MRI TIBIA [...] [place] 04/07/2025 9:58 AM EDT Workstation ID: [id number] us Sushil Dean Jr., MD [facility] MRI ORDERABLES Mary Beth l Result * Heparin Anti-Xa (04/07/2025 1:42 AM EDT) Heparin Anti-Xa (UFH) 0.38 0.30 - 0.70 IU/ml 04/07/2025 2:14 AM EDT [facility] Blood Venipuncture / Unknown 04/07/2025 1:42 AM EDT 04/07/2025 1:54 AM EDT Chelsie Navarretesapna [facility] LAB BLOOD ORDERABLES Final R esult Performing Organization Address City/[facility]/ZIP Co de Phone Number [facility]
[address] [place] [address], * Heparin Anti-Xa (04/06/2025 7:16 PM EDT) Pathologist [facility] Heparin Anti-Xa (UFH) 0.33 0.30 - 0.70 IU/ml 04/06/2025 7:50 PM EDT [facility] Blood Venipuncture / Unknown 04/06/2025 7:16 PM EDT 04/06/2025 7:35 PM EDT Cherri Beatty [facility] LAB BLOOD ORDERABLES Final Res ult Performing Organization Address City/[facility] Co de Phone Number [facility]
[address] [place] [address], * Potassium (04/06/2025 7:16 PM EDT) Pathologist [facility] Potassium 4.0 3.5 - 5.2 mmol/L 04/06/2025 7:53 PM EDT [facility] Blood Venipuncture / Unknown 04/06/2025 7:16 PM EDT 04/06/2025 7:35 PM EDT Jason Álvarez DO LAB BLOOD ORDERABLES Final Resul t Performing Organization Address City/[facility]/ZIP Co de Phone Number [facility]
[address] [place] [address], * (ABNORMAL) Heparin Anti-Xa (04/06/2025 12:36 PM EDT) Heparin Anti-Xa (UFH) 0.24(L) 0.30 - 0.70 IU/ml 04/06/2025 1:23 PM EDT [facility] Blood Venipuncture / Unknown 04/06/2025 12:36 PM EDT 04/06/2025 1:07 PM EDT Una LundbergD LAB BLOOD ORDERABLES Final R esult [facility]
[address] [place] [address], * (ABNORMAL) Heparin Anti-Xa (04/06/2025 3:42 AM EDT) [facility] Heparin Anti-Xa (UFH) 0.25(L) 0.30 - 0.70 IU/ml 04/06/2025 5:30 AM EDT [facility] Blood Venipuncture / Unknown 04/06/2025 3:42 AM EDT 04/06/2025 4:59 AM EDT Chelsie Turpin [facility] LAB BLOOD ORDERABLES Final R esult [facility]
[address] [place] [address], * (ABNORMAL) Basic Metabolic Panel (04/06/2025 3:42 AM EDT) [facility] Glucose 94 65 - 99 mg/dL 04/06/2025 5:59 AM EDT [facility] BUN 12.8 6.0 - 20.0 mg/dL 04/06/2025 5:59 AM EDT [facility] Creatinine 0.80 0.76 - 1.27 mg/dL 04/06/2025 5:59 AM EDT [facility] Sodium 138 136 - 145 mmol/L 04/06/2025 5:59 AM EDT [facility] Potassium 3.6 3.5 - 5.2 mmol/L 04/06/2025 5:59 AM EDT [facility] Chloride 103 98 - 107 mmol/L 04/06/2025 5:59 AM EDT [facility] CO2 24.2 22.0 - 29.0 mmol/L 04/06/2025 5:59 AM EDT [facility] Calcium 8.0(L) 8.6 - 10.5 mg/dL 04/06/2025 5:59 AM EDT [facility] BUN/Creatinine Ratio 16.0 7.0 - 25.0 04/06/2025 5:59 AM EDT [facility] Anion Gap 10.8 5.0 - 15.0 mmol/L 04/06/2025 5:59 AM EDT [facility] eGFR 111.9 >60.0 mL/min/1.7 3 04/06/2025 5:59 AM EDT [facility] Blood Venipuncture / Unknown 04/06/2025 3:42 AM EDT 04/06/2025 5:20 AM EDT Narrative [facility] - 04/06/2025 5:59 AM [...] DO LAB BLOOD ORDERABLES Final Resul t [facility]
[address] [place] [address], * (ABNORMAL) CBC Auto Differential (04/06/2025 3:41 AM EDT) WBC 10.86(H) 3.40 - 10.80 10*3/mm3 04/06/2025 5:04 AM EDT [facility] RBC 5.08 4.14 - 5.80 10*6/mm3 04/06/2025 5:04 AM EDT [facility] Hemoglobin 13.9 13.0 - 17.7 g/dL 04/06/2025 5:04 AM EDT [facility] Hematocrit 43.7 37.5 - 51.0 % 04/06/2025 5:04 AM EDT [facility] MCV 86.0 79.0 - 97.0 fL 04/06/2025 5:04 AM EDT [facility] MCH 27.4 26.6 - 33.0 pg 04/06/2025 5:04 AM EDT [facility] MCHC 31.8 31.5 - 35.7 g/dL 04/06/2025 5:04 AM EDT [facility] RDW 12.8 12.3 - 15.4 % 04/06/2025 5:04 AM EDT [facility] RDW-SD 40.0 37.0 - 54.0 fl 04/06/2025 5:04 AM EDT [facility] MPV 11.7 6.0 - 12.0 fL 04/06/2025 5:04 AM EDT [facility] Platelets 115(L) 140 - 450 10*3/mm3 04/06/2025 5:04 AM EDT [facility] Neutrophil % 65.3 42.7 - 76.0 % 04/06/2025 5:04 AM EDT [facility] Lymphocyte % 20.5 19.6 - 45.3 % 04/06/2025 5:04 AM EDT [facility] Monocyte % 11.8 5.0 - 12.0 % 04/06/2025 5:04 AM EDT [facility] Eosinophil % 1.8 0.3 - 6.2 % 04/06/2025 5:04 AM EDT [facility] Basophil % 0.3 0.0 - 1.5 % 04/06/2025 5:04 AM EDT [facility] Immature Grans % 0.3 0.0 - 0.5 % 04/06/2025 5:04 AM EDT [facility] Neutrophils, Absolute 7.09(H) 1.70 - 7.00 10*3/mm3 04/06/2025 5:04 AM EDT [facility] Lymphocytes, Absolute 2.23 0.70 - 3.10 10*3/mm3 04/06/2025 5:04 AM EDT [facility] Monocytes, Absolute 1.28(H) 0.10 - 0.90 10*3/mm3 04/06/2025 5:04 AM EDT [facility] Eosinophils, Absolute 0.20 0.00 - 0.40 10*3/mm3 04/06/2025 5:04 AM EDT [facility] Basophils, Absolute 0.03 0.00 - 0.20 10*3/mm3 04/06/2025 5:04 AM EDT [facility] Immature Grans, Absolute 0.03 0.00 - 0.05 10*3/mm3 04/06/2025 5:04 AM EDT [facility] nRBC 0.0 0.0 - 0.2 /100 WBC 04/06/2025 5:04 AM EDT [facility] Blood Venipuncture / Unknown 04/06/2025 3:41 AM EDT 04/06/2025 4:58 AM EDT us Jason Álvarez DO LAB BLOOD ORDERABLES Final Resul t [facility]
[address] [place] [address], * Heparin Anti-Xa (04/05/2025 8:43 PM EDT) Heparin Anti-Xa (UFH) 0.38 0.30 - 0.70 IU/ml 04/05/2025 9:09 PM EDT [facility] Blood Venipuncture / Unknown 04/05/2025 8:43 PM EDT 04/05/2025 8:55 PM EDT Cherri Beatty [facility] LAB BLOOD ORDERABLES Final Res ult Performing Organization Address [facility] Co de Phone Number [facility]
[address] [place] [address], * CK (04/05/2025 12:15 PM EDT) Creatine Kinase 140 20 - 200 U/L 04/05/2025 1:31 PM EDT [facility] Blood Venipuncture / Unknown 04/05/2025 12:15 PM EDT 04/05/2025 1:03 PM EDT Carlton Mead MD LAB BLOOD ORDERABLES Final R esult Performing Organization Address [facility] Co de Phone Number [facility]
[address] [place] [address], [place] [phone] * (ABNORMAL) Heparin Anti-Xa (04/05/2025 12:15 PM EDT) Heparin Anti-Xa (UFH) 0.17(L) 0.30 - 0.70 IU/ml 04/05/2025 1:21 PM EDT [facility] Blood Venipuncture / Unknown 04/05/2025 12:15 PM EDT 04/05/2025 1:04 PM EDT Una LundbergD LAB BLOOD ORDERABLES Final R esult Performing Organization Address City/[facility]/ZIP Co de Phone Number [facility]
[address] [place] [address], * (ABNORMAL) aPTT (04/05/2025 3:54 AM EDT) [facility] PTT 35.3(L) 60.0 - 90.0 seconds 04/05/2025 4:31 AM EDT [facility] Blood Venipuncture / Unknown 04/05/2025 3:54 AM EDT 04/05/2025 4:15 AM EDT Narrative [facility] - 04/05/2025 4:31 AM EDT PTT = The equivalent PTT values for the therapeutic range of heparin levels at 0.3 to 0.5 U/ml are 60 to 70 seconds. Una Perla [employer] LAB BLOOD ORDERABLES Final R esult Performing Organization Address [facility] Co de Phone Number [facility]
[address] [place] [address], * Heparin Anti-Xa (04/05/2025 3:54 AM EDT) [facility] Heparin Anti-Xa (UFH) 0.30 0.30 - 0.70 IU/ml 04/05/2025 4:32 AM EDT [facility] Blood Venipuncture / Unknown 04/05/2025 3:54 AM EDT 04/05/2025 4:15 AM EDT [employer] LAB BLOOD ORDERABLES Final R esult Performing Organization Address City/[facility] Co de Phone Number [facility]
[address] [place] [address], * (ABNORMAL) CBC Auto Differential (04/05/2025 3:54 AM EDT) [facility] WBC 11.18(H) 3.40 - 10.80 10*3/mm3 04/05/2025 4:20 AM EDT [facility] RBC 5.00 4.14 - 5.80 10*6/mm3 04/05/2025 4:20 AM EDT [facility] Hemoglobin 13.9 13.0 - 17.7 g/dL 04/05/2025 4:20 AM EDT [facility] Hematocrit 42.4 37.5 - 51.0 % 04/05/2025 4:20 AM EDT [facility] MCV 84.8 79.0 - 97.0 fL 04/05/2025 4:20 AM EDT [facility] MCH 27.8 26.6 - 33.0 pg 04/05/2025 4:[facility] MCHC 32.8 31.5 - 35.7 g/dL 04/05/2025 4:20 AM [facility] RDW 12.9 12.3 - 15.4 % 04/05/2025 4:20 AM [facility] RDW-SD 39.7 37.0 - 54.0 fl 04/05/2025 4:20 AM [facility] MPV 10.2 6.0 - 12.0 fL 04/05/2025 4:20 AM [facility] Platelets 160 140 - 450 10*3/mm3 04/05/2025 4:20 AM [facility] Neutrophil % 73.5 42.7 - 76.0 % 04/05/2025 4:20 [facility] Lymphocyte % 14.0(L) 19.6 - 45.3 % 04/05/2025 4:20 AM EDT [facility] Monocyte % 11.0 5.0 - 12.0 % 04/05/2025 4:20 [facility] Eosinophil % 0.8 0.3 - 6.2 % 04/05/2025 4:20 [facility] Basophil % 0.3 0.0 - 1.5 % 04/05/2025 4:20 AM EDT [facility] Immature Grans % 0.4 0.0 - 0.5 % 04/05/2025 4:20 AM EDT [facility] Neutrophils, Absolute 8.23(H) 1.70 - 7.00 10*3/mm3 04/05/2025 4:20 AM EDT [facility] Lymphocytes, Absolute 1.56 0.70 - 3.10 10*3/mm3 04/05/2025 4:20 AM EDT [facility] Monocytes, Absolute 1.23(H) 0.10 - 0.90 10*3/mm3 04/05/2025 4:20 AM EDT [facility] Eosinophils, Absolute 0.09 0.00 - 0.40 10*3/mm3 04/05/2025 4:20 AM EDT [facility] Basophils, Absolute 0.03 0.00 - 0.20 10*3/mm3 04/05/2025 4:20 AM EDT [facility] Immature Grans, Absolute 0.04 0.00 - 0.05 10*3/mm3 04/05/2025 4:20 AM EDT [facility] nRBC 0.0 0.0 - 0.2 /100 WBC 04/05/2025 4:20 AM EDT [facility] Blood Venipuncture / Unknown 04/05/2025 3:54 AM EDT 04/05/2025 4:16 AM EDT Una Perla PharmD LAB BLOOD ORDERABLES Final R esult [facility]
[address] [place] [address], * (ABNORMAL) Basic Metabolic Panel (04/05/2025 3:54 AM EDT) [facility] Signature Glucose 152(H) 65 - 99 mg/dL 04/05/2025 4:40 AM EDT [facility] BUN 17.3 6.0 - 20.0 mg/dL 04/05/2025 4:40 AM T [facility] Creatinine 0.92 0.76 - 1.27 mg/dL 04/05/2025 4:40 AM EDT [facility] Sodium 136 136 - 145 mmol/L 04/05/2025 4:40 AM EDT [facility] Potassium 3.9 3.5 - 5.2 mmol/L 04/05/2025 4:40 AM EDT [facility] Chloride 103 98 - 107 mmol/L 04/05/2025 4:40 AM EDT [facility] CO2 24.0 22.0 - 29.0 mmol/L 04/05/2025 4:40 AM T [facility] Calcium 7.8(L) 8.6 - 10.5 mg/dL 04/05/2025 4:40 AM [facility] BUN/Creatinine Ratio 18.8 7.0 - 25.0 04/05/2025 4:40 AM T [facility] Anion Gap 9.0 5.0 - 15.0 mmol/L 04/05/2025 4:40 AM [facility] eGFR 105.2 >60.0 mL/min/1.7 3 04/05/2025 4:40 AM [facility] Blood Venipuncture / Unknown 04/05/2025 3:54 AM EDT 04/05/2025 4:15 AM EDT [facility] LABORATORY - 04/05/2025 4:40 [...] sult Performing Organization Address [facility] Co de Phone Number [facility]
[address] [place] [address], * (ABNORMAL) aPTT (04/05/2025 12:18 AM EDT) PTT 33.6(L) 60.0 - 90.0 seconds 04/05/2025 12:53 AM EDT [facility] Blood Venipuncture / Unknown 04/05/2025 12:18 AM EDT 04/05/2025 12:37 AM EDT Narrative [facility] - 04/05/2025 12:53 AM EDT PTT = The equivalent PTT values for the therapeutic range of heparin levels at 0.3 to 0.5 U/ml are 60 to 70 seconds. Una Perla PharmD LAB BLOOD ORDERABLES Final R esult Performing Organization Address [facility] Co de Phone Number [facility]
[address] [place] [address], [place] [phone] * (ABNORMAL) Protime-INR (04/05/2025 12:18 AM EDT) Protime 15.9(H) 12.2 - 15.3 Seconds 04/05/2025 12:53 AM EDT [facility] INR 1.19(H) 0.89 - 1.12 04/05/2025 12:53 AM EDT [facility] Blood Venipuncture / Unknown 04/05/2025 12:18 AM EDT 04/05/2025 12:37 AM EDT Una Perla PharmD LAB BLOOD ORDERABLES Final R esult Performing Organization Address City/[facility] Co de Phone Number [facility]
[address] [place] [address], [place] [phone] * Heparin Anti-Xa (04/05/2025 12:18 AM EDT) Heparin Anti-Xa (UFH) 0.39 0.30 - 0.70 IU/ml 04/05/2025 12:54 AM EDT [facility] Blood Venipuncture / Unknown 04/05/2025 12:18 AM EDT 04/05/2025 12:37 AM EDT Una Perla PharmD LAB BLOOD ORDERABLES Final R esult [facility]
[address] [place] [address], * MRI Tibia Fibula Right With & [...] MD 04/04/2025 11:00 PM EDT Workstation ID: [id number] Narrative 04/04/2025 11:00 PM EDT MRI TIBIA [...] MD 04/04/2025 11:00 PM EDT Workstation ID: [id number] us Leonora Shepherd MD IMG MRI ORDERABLES Final Resu lt * POC Creatinine (04/04/2025 2:49 PM EDT) [facility] Creatinine 1.10 0.60 - 1.30 mg/dL 04/07/2025 7:14 PM EDT [facility] Comment:Serial Number: [id number]: [id number] Venous Blood 04/04/2025 2:49 PM EDT 04/07/2025 7:14 PM EDT Jason Álvarez DO POINT OF CARE TEST ORDERABLES Fi nal Result [facility]
[address] [place] [address], * (ABNORMAL) CBC Auto Differential (04/04/2025 2:47 PM EDT) [facility] WBC 12.72(H) 3.40 - 10.80 10*3/mm3 04/04/2025 2:56 PM EDT [facility] RBC 5.64 4.14 - 5.80 10*6/mm3 04/04/2025 2:56 PM EDT [facility] Hemoglobin 15.3 13.0 - 17.7 g/dL 04/04/2025 2:56 PM EDT [facility] Hematocrit 47.9 37.5 - 51.0 % 04/04/2025 2:56 PM EDT [facility] MCV 84.9 79.0 - 97.0 fL 04/04/2025 2:56 PM EDT [facility] MCH 27.1 26.6 - 33.0 pg 04/04/2025 2:56 PM EDT [facility] MCHC 31.9 31.5 - 35.7 g/dL 04/04/2025 2:56 PM EDT [facility] RDW 13.1 12.3 - 15.4 % 04/[facility] R[facility]-SD 40.3 37.0 - 54.0 fl 04/04/2025 2:56 PM EDT [facility] MPV 9.4 6.0 - 12.0 fL 04/04/2025 2:56 PM EDT [facility] Platelets 232 140 - 450 10*3/mm3 04/04/2025 2:56 PM EDT [facility] Neutrophil % 74.9 42.7 - 76.0 % 04/04/2025 2:56 PM EDT [facility] Lymphocyte % 13.1(L) 19.6 - 45.3 % 04/04/2025 2:[facility] Monocyte % 11.2 5.0 - 12.0 % 04/04/2025 2:56 [facility] Eosinophil % 0.4 0.3 - 6.2 % 04/04/2025 2:56 PM EDT [facility] Basophil % 0.2 0.0 - 1.5 % 04/04/2025 2:56 [facility] Immature Grans % 0.2 0.0 - 0.5 % 04/04/2025 2:56 [facility] Neutrophils, Absolute 9.52(H) 1.70 - 7.00 10*3/mm3 04/04/2025 2:56 PM [facility] Lymphocytes, Absolute 1.66 0.70 - 3.10 10*3/mm3 04/04/2025 2:56 PM EDT [facility] Monocytes, Absolute 1.43(H) 0.10 - 0.90 10*3/mm3 04/04/2025 2:56 PM EDT [facility] Eosinophils, Absolute 0.05 0.00 - 0.40 10*3/mm3 04/04/2025 2:56 [facility] Basophils, Absolute 0.03 0.00 - 0.20 10*3/mm3 04/04/2025 2:56 PM EDT [facility] Immature Grans, Absolute 0.03 0.00 - 0.05 10*3/mm3 04/04/2025 2:56 PM EDT [facility] nRBC 0.0 0.0 - 0.2 /100 WBC 04/04/2025 2:56 PM EDT [facility] Blood Venipuncture / Unknown 04/04/2025 2:47 PM EDT 04/04/2025 2:52 PM EDT Mario Ortiz [facility] BLOOD ORDERAB[facility] Fin al Result Performing Organization Address City/[facility]/ZIP Co de Phone Number [facility]
[address] [place] [address], * (ABNORMAL) C-reactive Protein (04/04/2025 2:47 PM EDT) C-Reactive Protein 8.57(H) 0.00 - 0.50 mg/dL 04/04/2025 3:26 PM EDT [facility] Blood Venipuncture / Unknown 04/04/2025 2:47 PM EDT 04/04/2025 2:52 PM EDT Mario Ortiz [facility] BLOOD ORDERABLES Fin al Result Performing Organization Address [facility] de Phone Number [facility]
[address] [place] [address], * (ABNORMAL) Sedimentation Rate (04/04/2025 2:47 PM EDT) Sed Rate 51(H) 0 - 15 mm/hr 04/04/2025 3:06 PM EDT [facility] Blood Venipuncture / Unknown 04/04/2025 2:47 PM EDT 04/04/2025 2:52 PM EDT [facility] Fin al Result Performing Organization Address City/[facility]/ZIP Co de Phone Number [facility]
[address] [place] [address], * Comprehensive Metabolic Panel (04/04/2025 2:47 PM EDT) [facility] Glucose 90 65 - 99 mg/dL 04/04/2025 3:26 PM EDT [facility] BUN 18.3 6.0 - 20.0 mg/dL 04/04/2025 3:26 PM EDT [facility] Creatinine 0.94 0.76 - 1.27 mg/dL 04/04/2025 3:26 PM EDT [facility] Sodium 136 136 - 145 mmol/L 04/04/2025 3:26 PM EDT [facility] Potassium 3.8 3.5 - 5.2 mmol/L 04/04/2025 3:26 PM EDT [facility] Chloride 100 98 - 107 mmol/L 04/04/2025 3:26 PM EDT [facility] CO2 25.3 22.0 - 29.0 mmol/L 04/04/2025 3:26 PM EDT [facility] Calcium 8.6 8.6 - 10.5 mg/dL 04/04/2025 3:26 PM EDT [facility] Total Protein 7.3 6.0 - 8.5 g/dL 04/04/2025 3:26 PM EDT [facility] Albumin 4.1 3.5 - 5.2 g/dL 04/04/2025 3:26 PM EDT [facility] ALT (SGPT) 26 1 - 41 U/L 04/04/2025 3:26 PM EDT [facility] AST (SGOT) 25 1 - 40 U/L 04/04/2025 3:26 PM EDT [facility] Alkaline Phosphatase 106 39 - 117 U/L 04/04/2025 3:26 PM EDT [facility] Total Bilirubin 1.0 0.0 - 1.2 mg/dL 04/04/2025 3:26 PM EDT [facility] Globulin 3.2 gm/dL 04/04/2025 3:26 PM EDT [facility] Comment:Calculated Result A/G Ratio 1.3 g/dL 04/04/2025 3:26 PM EDT [facility] BUN/Creatinine Ratio 19.5 7.0 - 25.0 04/04/2025 3:26 PM EDT [facility] Anion Gap 10.7 5.0 - 15.0 mmol/L 04/04/2025 3:26 PM EDT [facility] eGFR 102.5 >60.0 mL/min/1.7 3 04/04/2025 3:26 PM EDT [facility] Blood Venipuncture / Unknown 04/04/2025 2:47 PM EDT 04/04/2025 2:52 PM EDT Narrative [facility] - 04/04/2025 3:26 PM [...] DO LAB BLOOD ORDERABLES Fin al Result [facility]
[address] [place] [address], documented in this encounter Visit Diagnoses Diagnosis [...] 04/05/2025 3:33 PM EDT 2,000 Units heparin 36603 units/250 mL (100 units/mL) in 0.45 % [...] BPA Driven Protocol Open Order & [facility] Electrolyte Replacement Protocol Algorithm to View Details [...] BPA Driven Protocol Open Order & [facility] Electrolyte Replacement Protocol Algorithm to View Details [...] disposal. 0831 (Given - Provider: Amber Salazar, COMPUTER PROGRAMMER)194 (Given - Provider: Anahy Marcelino, COMPUTER PROGRAMMER)2129 (Canceled Entry - Provider: Anahy Marcelino RRT [...] Continuous Medication Order 04/09/2025 04/10/2025 04/11/2025 heparin 18301 units/250 mL (100 units/mL) in 0.45 % [...] BPA Driven Protocol Open Order & [facility] Electrolyte Replacement Protocol Algorithm to View Details [...] BPA Driven Protocol Open Order & [facility] Electrolyte Replacement Protocol Algorithm to View Details [...] documented as of this encounter Care Teams Suture Polisher Relationship Specialty Start Date End Date Provider, [place] [address] PCP - General 05/09/23 documented as of this encounter
--- OUTSIDE RECORDS SUMMARY | 2025-04-07 18:00 | XMS_ITS | Encounter Summary ---
[facility] Organization [facility] Address [address] [place] [address] Care Team Providers Care Medical Facilities Section Director Name Role Phone Provider, No Known Primary Care Provider Unavail able Reason for Visit * Reason Comments Leg Swelling * Auth/Cert Specialty Diagnoses / Procedures Referred By Contac t Referred To Contact Diagnoses Right BKA infection Referral ID Status Reason Start Date Expiration Date Visits Re quested Visits Authorized [id number] 1 1 Encounter Details Date Type Department Care Team (Late st Contact Info) Description 04/07/2025 6:00 PM EDT - 04/07/2025 6:52 PM EDT Surgery [facility] OR [address] [place] [address] Sushil Dean Jr., MD [address] [place] [address] [address] [id number] LEG DEBRIDEMENT, IRRIGATION Social History Tobacco Use Types Packs/Day Years Used Date Smoking Tobacco: Never Smokeless Tobacco: Never Tobacco Cessation:Counseling Given: Not Answered Alcohol Use Standard Drinks/Week Comments Not Currently 0 (1 standard drink = 0.6 oz pur e alcohol) [facility] Utilities Answer Date Recorded In the past 12 months has eOriginal electric, gas, oil, or water company threatened [...] 2:25 PM EDT Cherri Grimm RN * Fleming Suicide Severity Rating Scale (Screener/Recent Self-Report) Question [...] the original note were not included. [facility] DISCHARGE SUMMARY Patient Name: Won [...] Date/Time Wound Culture - Swab, Leg, Right [[id number]] (Abnormal) (Susceptibility) Collected: 04/07/252106 Lab Status: Final [...] Units Date/Time FL C Arm During Surgery [[id number]] Resulted: 04/07/252137 Updated: 04/07/252137 Narrative: This procedure was auto-finalized with no dictation required. MRI Tibia Fibula Right With & Without Contrast [[id number]] Collected: 04/07/25 0938 Updated: 04/07/25 1001 Narrative: [...] Buenrostro 04/07/2025 9:58 AM EDT Workstation ID: [id number] MRI Tibia Fibula Right With & Without Contrast [[id number]] Collected: 04/04/252256 Updated: 04/04/252302 Narrative: MRI TIBIA [...] represent a small area of phlegmonous change ([id number] image 10) measuring approximately 1.6 cm which [...] MD 04/04/2025 11:00 PM EDT Workstation ID: [id number] Pending Labs Order Current Status Fungus Culture [...] Male) Date of 1980 Social Security Number [id number] [place] [address] [place] [address] Cheondoism Unknown Marital Status Unknown Admission Date 04/04/2025 Admission Type Emergency Admitting Provider Jadyn Richardson DO Attending Provider Jadyn Richardson DO Department, Room/Bed [facility] 5G, S565/1 Discharge Date Discharge Disposition Discharge Destination Attending Provider: Jadyn Richardson DO Allergies: Ceftin [Cefuroxime], Keflex [Cephalexin], Latex Isolation: None Infection: MRSA (05/11/23) Code Status: CPR Ht: 180.3 cm (71 ) Wt: 134 kg (295 lb) Admission Cmt: None 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 Insurance as of 04/04/2025 Primary Coverage Payor Plan Insurance Group Employer/Plan Group [place] [id number] Payor Plan Address Payor Plan Phone Number Payor Plan Fax Number Effective Dates [employer] [address] [address] 08/10/2023 - None Entered Formerly [facility] [address] Subscriber Name Subscriber Date Member ID WON DENNIS 1980 [id number] Emergency Contacts Beamer Operator (Rel.) Home Phone Work Phone Mobile Phone Avril Dennis (Spouse) -- -- [phone] Robert Hackett (Relative) -- -- [phone] [facility] 5G [address] [facility] [address] Patient: ROOM: [facility] Won Dennis [address] [place] [address] : 1980 SSN: [id number] Sex: M PCP: Provider, No Known Emergency Contact Information Name Relation Home Work Mobile Avril Dennis Spouse [phone] Other Contacts Name Relation Home Work Mobile Robert Hackett Relative [phone] INSURANCE PAYOR PLAN GROUP # SUBSCRIBER ID Primary: Secondary: MEDICARE [place] [id number] Admitting Diagnosis: 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 Outpatient intravenous antibiotic therapy: Daptomycin 800 mg IV daily to be supplied by [facility] 2. Home health to perform [...] INFECTIOUS DISEASE Progress Note Won Dennis 1980 [id number] Date of Consult: 04/10/2025 Admission Date: 04/04/2025 [...] which prompted him to seek treatment at [facility]. He is known to Dr. Dean. [...] Jr., MD, 20 mg at 04/09/25906 heparin 72074 units/250 mL (100 units/mL) in 0.45 % NaCl infusion, 18 Units/kg/hr, Intravenous, Titrated, Una Perla, PharmD, Last Rate: 24.1 mL/hr at 04/10/25 0313, 18 Units/kg/hr at 04/10/25 031 hydroCHLOROthiazide tablet 12.5 mg, 12.5 mg, Oral, Daily, Sushil Dean Jr., MD, 12.5 mg at 04/09/25 0906 HYDROmorphone (DILAUDID) injection 0.5 mg, 0.5 mg, Intravenous, Q2H PRN, Yeyo Arzloa III, DO, 0.5 mg at 04/10/25 0655 [...] Units Date/Time FL C Arm During Surgery [[id number]] Resulted: 04/07/252137 Updated: 04/07/252137 Narrative: This procedure was auto-finalized with no dictation required. MRI Tibia Fibula Right With & Without Contrast [[id number]] Collected: 04/07/2538 Updated: 04/07/25 1001 Narrative: MRI [...] Buenrostro 04/07/2025 9:58 AM EDT Workstation ID: [id number] Impression: Recurrent Right BKA stump abscess/cellulitis- this [...] his disposition with the pharmacist at [facility] today. I will sign off Outpatient orders: 1. Outpatient intravenous antibiotic therapy: Daptomycin 800 mg IV daily to be supplied by [facility] 2. Home health to perform weekly [...] Time: 04/10/251323 Signed Expand All [facility] PROGRESS NOTE Patient Name: [...] Date/Time Wound Culture - Swab, Leg, Right [[id number]] (Abnormal) (Susceptibility) Collected: 04/07/252106 Lab Status: Final [...] Row Name 04/06/25 1143 Sit-Stand Transfer Sit-Stand [place] (Transfers) modified independence - Comment, (Sit-Stand Transfer) Pt stood from recliner. Not holding onto walker, pt able to pull his pants up while balancing on his one leg. -LM Row Name 04/06/25 1143 Gait/Stairs (Locomotion) [place] Level (Gait) modified independence - Distance in [...] Motion bilateral lower extremity ROM WFL -LM [facility] Name 04/06/25 1145 Strength Comprehensive (MMT) General Manual Muscle Testing (MMT) Assessment no strength deficits identified BLEs -LM [facility] Name 04/06/25 1145 Balance Balance Assessment [...] home at d/c. PT signing off. -LM [facility] Name 04/06/25 1146 Therapy Assessment/Plan (PT) Criteria for Skilled Interventions Met (PT) no;no problems identified which require skilled intervention -LM Therapy Frequency (PT) evaluation only -LM Predicted Duration of Therapy Intervention (PT) Eval Only -LM [facility] Name 04/06/25 1146 Vital Signs Pretreatment Heart Rate (beats/min) 86 -LM Posttreatment Heart Rate (beats/min) 96 -LM Pre SpO2 (%) 95 -LM O2 Delivery Pre Treatment room air -LM Post SpO2 (%) 96 -LM O2 Delivery Post Treatment room air -LM Pre Patient Position Sitting -LM Post Patient Position Sitting -LM [facility] Name 04/06/25 1146 Positioning and Restraints [...] Nurse Physical Therapy Education Title: PT OT BOOK AUTHOR Therapies (Done) Topic: Physical Therapy (Done) Point: Mobility training (Done) Learning Progress Summary Patient Acceptance, E, VU,DU by at 04/06/2025 1147 Point: Precautions (Done) Learning Progress Summary Patient Acceptance, E, VU,DU by at 04/06/2025 1147 User Cabrera Initials Effective Dates Name Provider Type [facility] 01/24/25 - Susan Cavazos, PT Physical Therapist [...] Description Service Date Service Provider Modifiers Qty [id number] PT EVAL LOW COMPLEXITY 3 04/06/2025 Susan [...] mg Daily 04/05/2025 -- Route: Oral heparin 32367 units/250 mL (100 units/mL) in 0.45 % [...] MD April 21 vs April 22 [facility] [address], [address] [facility], [address] Please schedule at [phone] VONDA Garcia 04/11/25 08:32 EDT Cosigned by Sushil Dean Jr., MD at 04/19/2025 10:33 AM EDT Associated attestation - Sushil Dean Jr., MD - 04/19/2025 10:33 AM EDT I have reviewed this documentation and agree. * Rosario Hill APRN - 04/10/2025 1:24 PM EDT Images from the original note were not included. [facility] PROGRESS NOTE Patient Name: Won [...] Date/Time Wound Culture - Swab, Leg, Right [[id number]] (Abnormal) (Susceptibility) Collected: 04/07/252106 Lab Status: Final [...] mg Daily 04/05/2025 -- Route: Oral heparin 09547 units/250 mL (100 units/mL) in 0.45 % [...] MD April 21 vs April 22 [facility] [address], [address] [facility], [address] Please schedule at [phone] VONDA Garcia 04/10/25 09:01 EDT Cosigned by Sushil Dean Jr., MD at 04/19/2025 10:33 AM EDT Associated attestation - Sushil Dean Jr., MD - 04/19/2025 10:33 AM EDT I have reviewed this documentation and agree. * Carlton Mead MD - 04/10/2025 7:38 AM EDT Images from the original note were not included. INFECTIOUS DISEASE Progress Note Won Dennis 1980 [id number] Date of Consult: 04/10/2025 Admission Date: 04/04/2025 [...] which prompted him to seek treatment at [facility]. He is known to Dr. Dean. [...] IRRIGATION; Surgeon: Sushil Dean Jr., MD; Location: [facility] OR; Service: Orthopedics; Laterality: Right; PLACEMENT OF WOUND VAC Right 04/07/2025 Procedure: WOUND VACUUM ASSISTED CLOSURE; Surgeon: Sushil Dean Jr., MD; Location: [facility] OR; Service: Orthopedics; Laterality: Right; WOUND CLOSURE [...] Jr., MD, 20 mg at 04/09/25906 heparin 17974 units/250 mL (100 units/mL) in 0.45 % [...] Units Date/Time FL C Arm During Surgery [[id number]] Resulted: 04/07/252137 Updated: 04/07/252137 Narrative: This procedure was auto-finalized with no dictation required. MRI Tibia Fibula Right With & Without Contrast [[id number]] Collected: 04/07/25937 Updated: 04/07/25 100 Narrative: MRI [...] Buenrostro 04/07/2025 9:58 AM EDT Workstation ID: [id number] Impression: Recurrent Right BKA stump abscess/cellulitis- this [...] his disposition with the pharmacist at [facility] today. I will sign off Outpatient orders: 1. Outpatient intravenous antibiotic therapy: Daptomycin 800 mg IV daily to be supplied by [facility] 2. Home health to perform weekly [...] start -- +11 11 0600 DW LU Hernnadez. Pt has Factor II mutation and needs [...] the original note were not included. [facility] PROGRESS NOTE Patient Name: Won [...] Date/Time Wound Culture - Swab, Leg, Right [[id number]] (Abnormal) Collected: 04/07/252106 Lab Status: Preliminary result [...] DO 04/09/25 * Larisa Hamilton [facility] - 04/09/2025 11:36 AM EDT Pharmacy to Dose Heparin Infusion Note Won Dennsi is a 44 y.o. male receiving heparin [...] mg Daily 04/05/2025 -- Route: Oral heparin 03074 units/250 mL (100 units/mL) in 0.45 % [...] 2 weeks for incision check, radiographs [facility] [address], [address] [facility], [address] Please schedule at [phone] VONDA Garcia 04/09/25 09:18 EDT Cosigned by Sushil Dean Jr., MD at 04/19/2025 10:33 AM EDT Associated attestation - Sushil Dean Jr., MD - 04/19/2025 10:33 AM EDT I have reviewed this documentation and agree. * Carlton Mead MD - 04/09/2025 8:25 AM EDT Images from the original note were not included. INFECTIOUS DISEASE Progress Note Won Dennis 1980 [id number] Date of Consult: 04/09/2025 Admission Date: 04/04/2025 [...] which prompted him to seek treatment at [facility]. He is known to Dr. Dean. [...] Sushil Dean Jr., MD; Location: [facility] OR; Service: Orthopedics; Laterality: Right; History reviewed. [...] MD, 20 mg at 04/08/25 0800 heparin 25338 units/250 mL (100 units/mL) in 0.45 % [...] Units Date/Time FL C Arm During Surgery [[id number]] Resulted: 04/07/252137 Updated: 04/07/252137 Narrative: This procedure was auto-finalized with no dictation required. 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 Home health to perform [...] the original note were not included. [facility] PROGRESS NOTE Patient Name: Won [...] Buenrostro 04/07/2025 9:58 AM EDT Workstation ID: [id number] I have personally reviewed the therapy plans: [...] mg Daily 04/05/2025 -- Route: Oral heparin 08930 units/250 mL (100 units/mL) in 0.45 % [...] INFECTIOUS DISEASE Progress Note Won Dennis 1980 [id number] Date of Consult: 04/08/2025 Admission Date: 04/04/2025 [...] which prompted him to seek treatment at [facility]. He is known to Dr. Dean. [...] Right 04/07/2025 Procedure: LEG DEBRIDEMENT, IRRIGATION; Surgeon: Susihl Dean Jr., MD; Location: [facility] OR; Service: Orthopedics; Laterality: Right; PLACEMENT OF WOUND VAC Right 04/07/2025 Procedure: WOUND VACUUM ASSISTED CLOSURE; Surgeon: Sushil Dean Jr., MD; Location: [facility] OR; Service: Orthopedics; Laterality: Right; History reviewed. [...] Oral, Q6H PRN, 500 mg at 04/06/25 1024 OR acetaminophen (TYLENOL) 160 MG/5ML oral solution [...] Jr., MD, 20 mg at 04/07/25950 heparin 38171 units/250 mL (100 units/mL) in 0.45 % [...] Units Date/Time FL C Arm During Surgery [[id number]] Resulted: 04/07/252137 Updated: 04/07/252137 Narrative: This procedure was auto-finalized with no dictation required. MRI Tibia Fibula Right With & Without Contrast [[id number]] Collected: 04/07/25 0938 Updated: 04/07/25 1001 Narrative: [...] Buenrostro 04/07/2025 9:58 AM EDT Workstation ID: [id number] Impression: 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 (Treated by ID in [place] Dr. Harris). Dr. Torres treated him with [...] the original note were not included. [facility] PROGRESS NOTE Patient Name: Won [...] Buenrostro 04/07/2025 9:58 AM EDT Workstation ID: [id number] I have personally reviewed the therapy plans: [...] INFECTIOUS DISEASE Progress Note Won Dennis 1980 [id number] Date of Consult: 04/07/2025 Admission Date: 04/04/2025 [...] which prompted him to seek treatment at [facility]. He is known to Dr. Dean. [...] MD, 20 mg at 04/06/25 0900 heparin 98206 units/250 mL (100 units/mL) in [...] With & Without Contrast - In process [[id number]] Resulted: 04/07/25828 Updated: 04/07/25828 This result has not been signed. Information might be incomplete. MRI Tibia Fibula Right With & Without Contrast [[id number]] Collected: 04/04/252256 Updated: 04/04/253 Narrative: MRI TIBIA [...] represent a small area of phlegmonous change ([id number] image 10) measuring approximately 1.6 cm which [...] MD 04/04/2025 11:00 PM EDT Workstation ID: [id number] Impression: 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 (Treated by ID in [place] Dr. Harris). Dr. Torres treated him with [...] mg Daily 04/05/2025 -- Route: Oral heparin 23759 units/250 mL (100 units/mL) in 0.45 % [...] the original note were not included. [facility] PROGRESS NOTE Patient Name: Won [...] MD 04/04/2025 11:00 PM EDT Workstation ID: [id number] I have personally reviewed the therapy plans: [...] mg Daily 04/05/2025 -- Route: Oral heparin 36289 units/250 mL (100 units/mL) in 0.45 % [...] INFECTIOUS DISEASE follow up. Won Dennis 1980 [id number] Date of Consult: 04/06/2025 Admission Date: 04/04/2025 [...] which prompted him to seek treatment at [facility]. He is known to Dr. Dean. [...] MD, 20 mg at 04/06/25 0900 heparin 25539 units/250 mL (100 units/mL) in 0.45 % [...] Tibia Fibula Right With & Without Contrast [[id number]] Collected: 04/04/252256 Updated: 04/04/252302 Narrative: MRI TIBIA [...] represent a small area of phlegmonous change ([id number] image 10) measuring approximately 1.6 cm which [...] MD 04/04/2025 11:00 PM EDT Workstation ID: [id number] Impression: 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 (Treated by ID in [place] Dr. Harris). Dr. Torres treated him with [...] 0.17 11 1999 +3 14 2100 ALDEN Betaty RPH 04/05/2025 14:55 EDT * Jason Álvarez DO - 04/05/2025 12:43 PM EDT Images from the original note were not included. [facility] PROGRESS NOTE Patient Name: Won [...] MD 04/04/2025 11:00 PM EDT Workstation ID: [id number] I have personally reviewed the therapy plans: [...] the original note were not included. [facility] HISTORY AND PHYSICAL Patient Name: [...] MD 04/04/2025 11:00 PM EDT Workstation ID: [id number] Assessment & Plan Assessment & Plan Won [...] PICC placed by Rhoda Bonner RN [facility], tip verified by 3CG see LDA. * Sushil Dean Jr., MD - 04/05/2025 8:07 AM EDTAssociated Order(s): IP CONSULT TO ORTHOPEDIC SURGERY [facility], [facility] [address] [address] Orthopedic Consult Patient: Won Dennis Date of [...] was evaluated in the emergency department in [place], was discharged with instructions for follow-up. He [...] tablet by mouth Daily. 04/03/2025 Morning Lactobacillus-Inulin ([facility] Digestive [facility]) capsule Take 200 mg by mouth Daily. [...] MD 04/04/2025 11:00 PM EDT Workstation ID: [id number] Assessment: Right BKA infection 44-year-old male with [...] midnight pending clinical check tomorrow. Date: 04/05/2025 Suhsil Dean Jr, MD * Carlton Mead MD - 04/05/2025 5:55 AM EDTAssociated Order(s): IP CONSULT TO INFECTIOUS DISEASES Images from the original note were not included. INFECTIOUS DISEASE CONSULT/INITIAL HOSPITAL VISIT Won Dennis 1980 [id number] Date of Consult: 04/05/2025 Admission Date: 04/04/2025 [...] which prompted him to seek treatment at [facility]. He is known to Dr. Dean. [...] Leonora Shepherd MD, 40 mg at 04/04/25 7417 sennosides-docusate (PERICOLACE) 8.6-50 MG per tablet 2 [...] MD, 20 mg at 04/05/25 09 heparin 90994 units/250 mL (100 units/mL) in 0.45 % [...] Leonora Shepherd MD, 10 mg at 04/04/25 5278 Pharmacy to Dose Heparin, , Not Applicable, Continuous PRAmber, Una Perla, PharmD Pharmacy to dose vancomycin, , Not Applicable, Continuous PRAmber, Leonora Shepherd MD Phosphorus Replacement - Follow Nurse / BPA Driven Protocol, , Not Applicable, PRJoao Paerson Laurie, MD Potassium Replacement - Follow Nurse [...] Tibia Fibula Right With & Without Contrast [[id number]] Collected: 04/04/252256 Updated: 04/04/252302 Narrative: MRI TIBIA [...] represent a small area of phlegmonous change (owchcm60 image 10) measuring approximately 1.6 cm which [...] MD 04/04/2025 11:00 PM EDT Workstation ID: [id number] Impression: 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 (Treated by ID in [place] Dr. Harris). Dr. oTrres treated him with [...] infection POSTOP DIAGNOSIS: Same. PROCEDURE: Right Right 18052: Secondary closure below-knee amputation SURGEON: Sushil Dean MD OPERATIVE TEAM: Counter Hand: Susi Grullon RN Scrub Person: Mary Paredes Scrub Person Extra: Hortencia Toribio Other: Katt Gotti RN; Charis Neville RN ANESTHETIST: Anesthesiologist: Ulises Hoffman MD CEMETERY KEEPER: Stan Casillas CRNA Student Nurse Silver Cleaner: Karol Albert SRNA ANESTHESIA: Choice ESTIMATED BLOOD [...] CULTURE (Canceled) Sushil Dean Jr., MD 04/08/25 4537 Description: RIGHT LEG DEEP WOUND FOR CULTURE [...] MD - 04/07/2025 9:03 PM EDT [facility], [place] [address] OPERATIVE REPORT PATIENT NAME: Won Dennis DATE OF : 1980 PREOP DIAGNOSIS: Right Right below knee amputation stump infection POSTOP DIAGNOSIS: Same. PROCEDURE: Right Right 09892: Incision and drainage of surgical site infection 94120: Debridement of skin, subcutaneous tissue, muscle 37072: Wound vacuum-assisted closure SURGEON: Sushil Dean MD OPERATIVE TEAM: Counter Hand: Anum Sanchez RN Scrub Person: Hortencia Toribio; Gerald Ivey DOOR WORKER: Anesthesiologist: Luci Alonso DO ANESTHESIA: General [...] ago swellling of the area. seen at [facility] yesterday for CT and US, here [...] this chart in the absence of a sql server bi developer. No orders to display RADIOLOGY: [x] Radiologist's [...] is discharging home with outpatient infusion at [facility]. He has an appointment with [facility] at 8:00 am tomorrow. They will do PICC line dressing changes. DEBRA has spoke with [facility] at [facility] [...] to get IV ABX at home with [facility]; however, Medicaid lapsed on 04/08. DEBRA was unaware until this morning that Medicaid has lapsed. Patient explained that he has Medicare A and B. CM spoke with KELLEE and given themhis Medicare number [id number], she sent it to Admission. DEBRA spoke with Kerri, with [facility], and explained that he had Medicare A and B. However, it will not cover home infusion. It will be $64.00 a day out of packet. Patients can go to the Infusion center at [facility], and it will cover the cost as an outpatient. He will need to go there every day for infusion. They will be able to do the patients' PICC line dressing changes and lab work. DEBRA called [facility] Outpatient infusion center they can accept patient and start him. He is known for their facility. The Facility will need to run it through his insurance first. CM faxed the orders over to [facility] at [phone]. CM will follow up with them tomorrow at [facility] to make sure they received the orders. Patient is hoping for discharge tomorrow. CM will follow and updated when more is known. Final Discharge Disposition Code 01 - home or self-care Discharge Codes No documentation. Expected Discharge Date and Time Expected Discharge Date Expected Discharge Time Apr 10, 2025 Kathy Johnson RN * Case Management/Social Work - Omar Zaavla RN - 04/09/2025 2:51 PM EDT Continued Stay Note [facility] Patient Name: Won Dennis Today's Date: 04/09/2025 Admit Date: 04/04/2025 Plan: Home Discharge Plan Row Name 04/09/25 1311 Plan Plan Home Patient/Family in Agreement with Plan yes Plan Comments CM spoke with patient at bedside today. Wheelchair from [employer] is at bedside. Patient getting PICC line [...] not included. Discharge Planning Assessment [facility] Patient Name: Won Dennis Today's Date: 04/07/2025 [...] family Patient/Family Anticipated Services at Transition case management rnmail manager Anticipated family or friend will provide [...] is Dr. Jordan. Insurance is [place]. Patient discharge plan is home [...] - 10.80 10*3/mm3 04/11/2025 4:02 AM EDT [facility] RBC 4.70 4.14 - 5.80 10*6/mm3 04/11/2025 4:02 AM [facility] Hemoglobin 12.8(L) 13.0 - 17.7 g/dL 04/11/2025 4:02 AM [facility] Hematocrit 40.5 37.5 - 51.0 % 04/11/2025 4:02 AM [facility] MCV 86.2 79.0 - 97.0 fL 04/11/2025 4:02 [facility] MCH 27.2 26.6 - 33.0 pg 04/11/2025 4:02 AM [facility] MCHC 31.6 31.5 - 35.7 g/dL 04/11/2025 4:02 AM [facility] RDW 12.9 12.3 - 15.4 % 04/11/2025 4:02 AM [facility] [facility] RDW-SD 40.5 37.0 - 54.0 fl 04/11/2025 4:02 AM [facility] MPV 9.2 6.0 - 12.0 fL 04/11/2025 4:02 AM [facility] Platelets 267 140 - 450 10*3/mm3 04/11/2025 4:02 AM [facility] Neutrophil % 59.5 42.7 - 76.0 % 04/11/2025 4:02 AM [facility] Lymphocyte % 26.3 19.6 - 45.3 % 04/11/2025 4:02 AM [facility] Monocyte % 9.3 5.0 - 12.0 % 04/11/2025 4:02 AM [facility] Eosinophil % 4.1 0.3 - 6.2 % 04/11/2025 4:02 AM [facility] Basophil % 0.4 0.0 - 1.5 % 04/11/2025 4:02 AM [facility] Immature Grans % 0.4 0.0 - 0.5 % 04/11/2025 4:02 AM [facility] Neutrophils, Absolute 4.69 1.70 - 7.00 10*3/mm3 04/11/2025 4:02 AM EDT [facility] Lymphocytes, Absolute 2.07 0.70 - 3.10 10*3/mm3 04/11/2025 4:02 AM EDT [facility] Monocytes, Absolute 0.73 0.10 - 0.90 10*3/mm3 04/11/2025 4:02 AM EDT [facility] Eosinophils, Absolute 0.32 0.00 - 0.40 10*3/mm3 04/11/2025 4:02 AM EDT [facility] Basophils, Absolute 0.03 0.00 - 0.20 10*3/mm3 04/11/2025 4:02 AM EDT [facility] Immature Grans, Absolute 0.03 0.00 - 0.05 10*3/mm3 04/11/2025 4:02 AM EDT [facility] nRBC 0.0 0.0 - 0.2 /100 WBC 04/11/2025 4:02 AM EDT [facility] Blood Venipuncture / Unknown 04/11/2025 3:40 AM EDT 04/11/2025 3:59 AM EDT us Sushil Dean Jr., MD LAB BLOOD ORDERABLES Fi nal Result [facility]
[id number] [place] [address], * (ABNORMAL) Comprehensive Metabolic Panel (04/11/2025 3:40 AM EDT) [facility] Signature Glucose 108(H) 65 - 99 mg/dL 04/11/2025 4:19 AM EDT [facility] BUN 12.5 6.0 - 20.0 mg/dL 04/11/2025 4:19 AM EDT [facility] Creatinine 0.68(L) 0.76 - 1.27 mg/dL 04/11/2025 4:19 AM [facility] Sodium 140 136 - 145 mmol/L 04/11/2025 4:19 AM [facility] Potassium 3.8 3.5 - 5.2 mmol/L 04/11/2025 4:19 AM [facility] Chloride 105 98 - 107 mmol/L 04/11/2025 4:19 AM [facility] CO2 28.2 22.0 - 29.0 mmol/L 04/11/2025 4:19 AM [facility] Calcium 8.2(L) 8.6 - 10.5 mg/dL 04/11/2025 4:19 AM [facility] Total Protein 6.1 6.0 - 8.5 g/dL 04/11/2025 4:19 AM [facility] Albumin 3.1(L) 3.5 - 5.2 g/dL 04/11/2025 4:19 AM [facility] ALT (SGPT) 52(H) 1 - 41 U/L 04/11/2025 4:19 AM [facility] AST (SGOT) 40 1 - 40 U/L 04/11/2025 4:19 AM [facility] Alkaline Phosphatase 99 39 - 117 U/L 04/11/2025 4:19 AM [facility] Total Bilirubin 0.2 0.0 - 1.2 mg/dL 04/11/2025 4:19 AM [facility] Globulin 3.0 gm/dL 04/11/2025 4:19 AM [facility] Comment:Calculated Result A/G Ratio 1.0 g/dL 04/11/2025 4:19 AM [facility] BUN/Creatinine Ratio 18.4 7.0 - 25.0 04/11/2025 4:19 AM [facility] Anion Gap 6.8 5.0 - 15.0 mmol/L 04/11/2025 4:19 AM [facility] eGFR 117.5 >60.0 mL/min/1.7 3 04/11/2025 4:19 AM EDT [facility] Blood Venipuncture / Unknown 04/11/2025 [...] include race as a factor Rosario Hill [employer] LAB BLOOD ORDERABLES Final Result [facility]
[id number] [place] [address], * (ABNORMAL) CBC Auto Differential (04/10/2025 3:46 AM EDT) WBC 9.60 3.40 - 10.80 10*3/mm3 04/10/2025 3:56 AM EDT [facility] RBC 4.67 4.14 - 5.80 10*6/mm3 04/10/2025 3:56 AM EDT [facility] Hemoglobin 12.9(L) 13.0 - 17.7 g/dL 04/10/2025 3:56 AM EDT [facility] Hematocrit 40.1 37.5 - 51.0 % 04/10/2025 3:56 AM EDT [facility] MCV 85.9 79.0 - 97.0 fL 04/10/2025 3:56 AM EDT [facility] MCH 27.6 26.6 - 33.0 pg 04/10/2025 3:56 AM EDT [facility] MCHC 32.2 31.5 - 35.7 g/dL 04/10/2025 3:56 AM [facility] RDW 12.9 12.3 - 15.4 % 04/10/2025 3:56 AM [facility] RDW-SD 40.5 37.0 - 54.0 fl 04/10/2025 3:56 AM [facility] MPV 9.5 6.0 - 12.0 fL 04/10/2025 3:56 AM EDT [facility] Platelets 227 140 - 450 10*3/mm3 04/10/2025 3:56 AM [facility] Neutrophil % 59.1 42.7 - 76.0 % 04/10/2025 3:56 AM [facility] Lymphocyte % 29.0 19.6 - 45.3 % 04/10/2025 3:56 AM [facility] Monocyte % 8.1 5.0 - 12.0 % 04/10/2025 3:56 AM [facility] Eosinophil % 3.2 0.3 - 6.2 % 04/10/2025 3:56 AM [facility] Basophil % 0.4 0.0 - 1.5 % 04/10/2025 3:56 AM [facility] Immature Grans % 0.2 0.0 - 0.5 % 04/10/2025 3:56 AM [facility] Neutrophils, Absolute 5.67 1.70 - 7.00 10*3/mm3 04/10/2025 3:56 AM [facility] Lymphocytes, Absolute 2.78 0.70 - 3.10 10*3/mm3 04/10/2025 3:56 AM [facility] Monocytes, Absolute 0.78 0.10 - 0.90 10*3/mm3 04/10/2025 3:56 AM [facility] Eosinophils, Absolute 0.31 0.00 - 0.40 10*3/mm3 04/10/2025 3:56 AM [facility] Basophils, Absolute 0.04 0.00 - 0.20 10*3/mm3 04/10/2025 3:56 AM EDT [facility] Immature Grans, Absolute 0.02 0.00 - 0.05 10*3/mm3 04/10/2025 3:56 AM EDT [facility] nRBC 0.0 0.0 - 0.2 /100 WBC 04/10/2025 3:56 AM EDT [facility] Blood Venipuncture / Unknown 04/10/2025 3:46 AM EDT 04/10/2025 3:53 AM EDT us Jason Álvarez DO LAB BLOOD ORDERABLES Final Resul t [facility]
[id number] [place] [address], * (ABNORMAL) Basic Metabolic Panel (04/10/2025 3:46 AM EDT) Glucose 125(H) 65 - 99 mg/dL 04/10/2025 4:20 AM EDT [facility] BUN 15.9 6.0 - 20.0 mg/dL 04/10/2025 4:20 AM EDT [facility] Creatinine 0.77 0.76 - 1.27 mg/dL 04/10/2025 4:20 AM EDT [facility] Sodium 137 136 - 145 mmol/L 04/10/2025 4:20 AM EDT [facility] Potassium 3.9 3.5 - 5.2 mmol/L 04/10/2025 4:20 AM EDT [facility] Chloride 102 98 - 107 mmol/L 04/10/2025 4:20 AM EDT [facility] CO2 26.9 22.0 - 29.0 mmol/L 04/10/2025 4:20 AM EDT [facility] Calcium 7.9(L) 8.6 - 10.5 mg/dL 04/10/2025 4:20 AM EDT [facility] BUN/Creatinine Ratio 20.6 7.0 - 25.0 04/10/2025 4:20 AM EDT [facility] Anion Gap 8.1 5.0 - 15.0 mmol/L 04/10/2025 4:20 AM EDT [facility] eGFR 113.2 >60.0 mL/min/1.7 3 04/10/2025 4:20 AM EDT [facility] Blood Venipuncture / Unknown 04/10/2025 3:46 AM EDT 04/10/2025 3:52 AM EDT Narrative [facility] - 04/10/2025 4:20 AM EDT [...] DO LAB BLOOD ORDERABLES Final Resul t [facility]
[id number] [place] [address], * Heparin Anti-Xa (04/10/2025 3:46 AM EDT) Heparin Anti-Xa (UFH) 0.35 0.30 - 0.70 IU/ml 04/10/2025 4:23 AM EDT [facility] Blood Venipuncture / Unknown 04/10/2025 3:46 AM EDT 04/10/2025 3:53 AM EDT Larisa Hamilton [facility] LAB BLOOD ORDERABLES Final R esult [facility]
[address] [place] [address], * Heparin Anti-Xa (04/09/2025 10:05 AM EDT) Pathologist [facility] Heparin Anti-Xa (UFH) 0.36 0.30 - 0.70 IU/ml 04/09/2025 11:12 AM EDT [facility] Blood Venipuncture / Unknown 04/09/2025 10:05 AM EDT 04/09/2025 10:47 AM EDT Larisa Hamilton [facility] LAB BLOOD ORDERABLES Final R esult [facility]
[id number] [place] [address], * (ABNORMAL) CBC Auto Differential (04/09/2025 4:18 AM EDT) Pathologist [facility] WBC 11.00(H) 3.40 - 10.80 10*3/mm3 04/09/2025 4:50 AM EDT [facility] RBC 4.70 4.14 - 5.80 10*6/mm3 04/09/2025 4:50 AM EDT [facility] Hemoglobin 13.0 13.0 - 17.7 g/dL 04/09/2025 4:50 AM EDT [facility] Hematocrit 40.4 37.5 - 51.0 % 04/09/2025 4:50 AM EDT [facility] MCV 86.0 79.0 - 97.0 fL 04/09/2025 4:50 AM EDT [facility] MCH 27.7 26.6 - 33.0 pg 04/09/2025 4:50 AM EDT [facility] MCHC 32.2 31.5 - 35.7 g/dL 04/09/2025 4:50 AM EDT [facility] RDW 12.8 12.3 - 15.4 % 04/09/2025 4:50 AM [facility] RDW-SD 39.9 37.0 - 54.0 fl 04/09/2025 4:50 AM [facility] MPV 10.0 6.0 - 12.0 fL 04/09/2025 4:50 AM [facility] Platelets 211 140 - 450 10*3/mm3 04/09/2025 4:50 AM [facility] Neutrophil % 74.8 42.7 - 76.0 % 04/09/2025 4:50 AM [facility] Lymphocyte % 15.4(L) 19.6 - 45.3 % 04/09/2025 4:50 AM [facility] Monocyte % 8.5 5.0 - 12.0 % 04/09/2025 4:50 AM [facility] Eosinophil % 0.6 0.3 - 6.2 % 04/09/2025 4:50 AM [facility] Basophil % 0.4 0.0 - 1.5 % 04/09/2025 4:50 AM [facility] Immature Grans % 0.3 0.0 - 0.5 % 04/09/2025 4:50 AM [facility] Neutrophils, Absolute 8.23(H) 1.70 - 7.00 10*3/mm3 04/09/2025 4:50 AM [facility] Lymphocytes, Absolute 1.69 0.70 - 3.10 10*3/mm3 04/09/2025 4:50 AM [facility] Monocytes, Absolute 0.94(H) 0.10 - 0.90 10*3/mm3 04/09/2025 4:50 AM [facility] Eosinophils, Absolute 0.07 0.00 - 0.40 10*3/mm3 04/09/2025 4:50 AM [facility] Basophils, Absolute 0.04 0.00 - 0.20 10*3/mm3 04/09/2025 4:50 AM [facility] Immature Grans, Absolute 0.03 0.00 - 0.05 10*3/mm3 04/09/2025 4:50 AM EDT [facility] nRBC 0.0 0.0 - 0.2 /100 WBC 04/09/2025 4:50 AM EDT [facility] Blood Venipuncture / Unknown 04/09/2025 4:18 AM EDT 04/09/2025 4:31 AM EDT Sushil Dean Jr., MD LAB BLOOD ORDERABLES Fi nal Result [facility]
[id number] [place] [address], * Heparin Anti-Xa (04/09/2025 4:18 AM EDT) Heparin Anti-Xa (UFH) 0.41 0.30 - 0.70 IU/ml 04/09/2025 4:53 AM EDT [facility] Blood Venipuncture / Unknown 04/09/2025 4:18 AM EDT 04/09/2025 4:31 AM EDT Una LundbergD LAB BLOOD ORDERABLES Final R esult [facility]
[id number] [place] [address], * (ABNORMAL) Basic Metabolic Panel (04/09/2025 4:18 AM EDT) Glucose 147(H) 65 - 99 mg/dL 04/09/2025 5:33 AM EDT [facility] BUN 23.0(H) 6.0 - 20.0 mg/dL 04/09/2025 5:33 AM EDT [facility] Creatinine 1.15 0.76 - 1.27 mg/dL 04/09/2025 5:33 AM EDT [facility] Sodium 135(L) 136 - 145 mmol/L 04/09/2025 5:33 AM EDT [facility] Potassium 4.2 3.5 - 5.2 mmol/L 04/09/2025 5:33 AM EDT [facility] Chloride 100 98 - 107 mmol/L 04/09/2025 5:33 AM EDT [facility] CO2 26.0 22.0 - 29.0 mmol/L 04/09/2025 5:33 AM EDT [facility] Calcium 8.2(L) 8.6 - 10.5 mg/dL 04/09/2025 5:33 AM EDT [facility] BUN/Creatinine Ratio 20.0 7.0 - 25.0 04/09/2025 5:33 AM EDT [facility] Anion Gap 9.0 5.0 - 15.0 mmol/L 04/09/2025 5:33 AM EDT [facility] eGFR 80.5 >60.0 mL/min/1.7 3 04/09/2025 5:33 AM EDT [facility] Blood Venipuncture / Unknown 04/09/2025 4:18 AM EDT 04/09/2025 4:29 AM EDT [facility] - 04/09/2025 5:33 AM [...] MD LAB BLOOD ORDERABLES Fi nal Result [facility]
[address] [place] [address], * Wound Culture - Swab, Leg, Right (04/08/2025 3:40 PM EDT) Wound Culture No growth at 3 days ALIZA 04/11/2025 10:40 AM EDT [facility] Gram Stain Few (2+) WBCs seen 04/11/2025 10:40 AM EDT [facility] Gram Stain No organisms seen 04/11/2025 10:40 AM EDT [facility] Swab Structure of right lower limb / Unknown 04/08/2025 3:40 PM EDT 04/08/2025 8:05 PM EDT Sushil Dean Jr., MD MICROBIOLOGY - GENERAL ORDERABLES Final Result Performing Organization Address City/[facility]/ZIP Co de Phone Number [facility]
[address] [place] [address], [facility]
[address] [place] [address], * Anaerobic Culture - Swab, Leg, Right (04/08/2025 3:40 PM EDT) Pathologist [facility] Anaerobic Culture No anaerobes isolated at 5 days ALIZA 04/13/2025 7:24 AM EDT [facility] Swab Structure of right lower limb / Unknown 04/08/2025 3:40 PM EDT 04/08/2025 8:05 PM EDT Sushil Dean Jr., MD MICROBIOLOGY - GENERAL ORDERABLES Final Result [facility]
[address] [place] [address], * Scan Slide (04/08/2025 8:41 AM EDT) RBC Morphology Normal Normal 04/08/2025 11:02 AM EDT [facility] WBC Morphology Normal Normal 04/08/2025 11:02 AM EDT [facility] Platelet Estimate Adequate Normal 04/08/2025 11:02 AM EDT [facility] Clumped Platelets Present None Seen 04/08/2025 11:02 AM EDT [facility] Blood Venipuncture / Unknown 04/08/2025 8:41 AM EDT 04/08/2025 9:10 AM EDT Una Minda PharmD LAB BLOOD ORDERABLES Final R esult [facility]
[id number] [place] [address], * (ABNORMAL) CBC Auto Differential (04/08/2025 8:41 AM EDT) WBC 10.07 3.40 - 10.80 10*3/mm3 04/08/2025 11:02 AM EDT [facility] RBC 5.01 4.14 - 5.80 10*6/mm3 04/08/2025 11:02 AM EDT [facility] Hemoglobin 14.0 13.0 - 17.7 g/dL 04/08/2025 11:02 AM EDT [facility] Hematocrit 42.7 37.5 - 51.0 % 04/08/2025 11:02 AM EDT [facility] MCV 85.2 79.0 - 97.0 fL 04/08/2025 11:02 AM EDT [facility] MCH 27.9 26.6 - 33.0 pg 04/08/2025 11:02 AM EDT [facility] MCHC 32.8 31.5 - 35.7 g/dL 04/08/2025 11:02 AM EDT [facility] RDW 12.6 12.3 - 15.4 % 04/08/2025 11:02 AM EDT [facility] RDW-SD 38.9 37.0 - 54.0 fl 04/08/2025 11:02 AM [facility] MPV 11.0 6.0 - 12.0 fL 04/08/2025 11:02 AM [facility] Platelets 118(L) 140 - 450 10*3/mm3 04/08/2025 11:02 AM [facility] Neutrophil % 85.1(H) 42.7 - 76.0 % 04/08/2025 11:02 AM [facility] Lymphocyte % 9.3(L) 19.6 - 45.3 % 04/08/2025 11:02 AM [facility] Monocyte % 4.6(L) 5.0 - 12.0 % 04/08/2025 11:02 AM [facility] Eosinophil % 0.3 0.3 - 6.2 % 04/08/2025 11:02 AM [facility] Basophil % 0.2 0.0 - 1.5 % 04/08/2025 11:02 AM [facility] Immature Grans % 0.5 0.0 - 0.5 % 04/08/2025 11:02 AM [facility] Neutrophils, Absolute 8.57(H) 1.70 - 7.00 10*3/mm3 04/08/2025 11:02 AM [facility] Lymphocytes, Absolute 0.94 0.70 - 3.10 10*3/mm3 04/08/2025 11:02 AM [facility] Monocytes, Absolute 0.46 0.10 - 0.90 10*3/mm3 04/08/2025 11:02 AM [facility] Eosinophils, Absolute 0.03 0.00 - 0.40 10*3/mm3 04/08/2025 11:02 AM [facility] Basophils, Absolute 0.02 0.00 - 0.20 10*3/mm3 04/08/2025 11:02 AM [facility] Immature Grans, Absolute 0.05 0.00 - 0.05 10*3/mm3 04/08/2025 11:02 AM EDT [facility] nRBC 0.0 0.0 - 0.2 /100 WBC 04/08/2025 11:02 AM EDT [facility] Blood Venipuncture / Unknown 04/08/2025 8:41 AM EDT 04/08/2025 9:10 AM EDT Una Perla PharmD LAB BLOOD ORDERABLES Final R esult [facility]
[id number] [place] [address], * (ABNORMAL) Basic Metabolic Panel (04/08/2025 8:41 AM EDT) Glucose 125(H) 65 - 99 mg/dL 04/08/2025 9:51 AM EDT [facility] BUN 13.2 6.0 - 20.0 mg/dL 04/08/2025 9:51 AM EDT [facility] Creatinine 0.69(L) 0.76 - 1.27 mg/dL 04/08/2025 9:51 AM EDT [facility] Sodium 136 136 - 145 mmol/L 04/08/2025 9:51 AM EDT [facility] Potassium 4.6 3.5 - 5.2 mmol/L 04/08/2025 9:51 AM EDT [facility] Chloride 102 98 - 107 mmol/L 04/08/2025 9:51 AM EDT [facility] CO2 23.5 22.0 - 29.0 mmol/L 04/08/2025 9:51 AM EDT [facility] Calcium 8.4(L) 8.6 - 10.5 mg/dL 04/08/2025 9:51 AM EDT [facility] BUN/Creatinine Ratio 19.1 7.0 - 25.0 04/08/2025 9:51 AM EDT [facility] Anion Gap 10.5 5.0 - 15.0 mmol/L 04/08/2025 9:51 AM EDT [facility] eGFR 117.0 >60.0 mL/min/1.7 3 04/08/2025 9:51 AM EDT [facility] Blood Venipuncture / Unknown 04/08/2025 8:41 AM EDT 04/08/2025 9:09 AM EDT Narrative [facility] - 04/08/2025 9:51 AM EDT [...] ORDERABLES Fi nal Result Performing Organization Address City/[facility]/ZIP Co de Phone Number [facility]
[address] [place] [address], * Heparin Anti-Xa (04/08/2025 8:41 AM EDT) Heparin Anti-Xa (UFH) 0.33 0.30 - 0.70 IU/ml 04/08/2025 9:40 AM EDT [facility] Blood Venipuncture / Unknown 04/08/2025 8:41 AM EDT 04/08/2025 9:10 AM EDT us Sushil Dean Jr., MD LAB BLOOD ORDERABLES Fi nal Result [facility]
[address] [place] [address], * FL C Arm During Surgery (04/07/2025 9:32 PM EDT) Narrative SYSTEMGENERATED, DOCUMENTATION - 04/07/2025 9:38 PM EDT This procedure was auto-finalized with no dictation required. us Sushil Dean Jr., MD IMG FLUOROSCOPY ORDERAB LES Final Result * Wound Culture - Swab, Leg, Right (04/07/2025 9:14 PM EDT) Wound Culture No growth at 3 days ALIZA 04/11/2025 10:40 AM EDT [facility] Gram Stain Occasional WBCs seen 04/11/2025 10:40 AM EDT [facility] Gram Stain No organisms seen 04/11/2025 10:40 AM EDT [facility] Swab Structure of right lower limb / Unknown Collection / Unknown 04/07/2025 9:14 PM EDT 04/08/2025 4:36 AM EDT us Sushil Dean Jr., MD MICROBIOLOGY - GENERAL ORDERABLES Final Result Performing Organization Address City/[facility]/ZIP Co de Phone Number [facility]
[address] [place] [address], [facility]
[address] [place] [address], * Anaerobic Culture - Swab, Leg, Right (04/07/2025 9:14 PM EDT) Anaerobic Culture No anaerobes isolated at 5 days ALIZA 04/13/2025 7:21 AM EDT [facility] Swab Structure of right lower limb / Unknown Collection / Unknown 04/07/2025 9:14 PM EDT 04/08/2025 4:36 AM EDT us Sushil Dean Jr., MD MICROBIOLOGY - GENERAL ORDERABLES Final Result [facility]
[address] [place] [address], * Anaerobic Culture - Tissue, Leg (04/07/2025 9:13 PM EDT) Pathologist [facility] Anaerobic Culture No anaerobes isolated at 5 days ALIZA 04/13/2025 7:21 AM EDT [facility] Tissue Lower limb structure / Unknown Collection / Unknown 04/07/2025 9:13 PM EDT 04/08/2025 4:54 AM EDT Jason Álvarez DO MICROBIOLOGY - GENERAL ORDERABLE S Final Result [facility]
[address] [place] [address], * Tissue / Bone Culture - Tissue, Leg, Right (04/07/2025 9:13 PM EDT) [facility] Tissue Culture No growth at 3 days ALIZA 04/11/2025 10:36 AM EDT [facility] Gram Stain Rare (1+) WBCs seen 04/11/2025 10:36 AM EDT [facility] Gram Stain No organisms seen 04/11/2025 10:36 AM EDT [facility] Tissue Structure of right lower limb / Unknown 04/07/2025 9:13 PM EDT 04/08/2025 4:54 AM EDT Sushil Dean Jr., MD MICROBIOLOGY - GENERAL ORDERABLES Final Result [facility]
[address] [place] [address], [facility]
[address] [place] [address], * (ABNORMAL) Wound Culture - Swab, Leg, Right (04/07/2025 9:07 PM EDT) Pathologist [facility] Wound Culture Light growth (2+) Staphylococcus aureus, MRSA(A) ALIZA 04/10/2025 10:38 AM EDT [facility] Comment: Methicillin resistant Staphylococcus aureus, Patient may be an isolation risk. Gram Stain Few (2+) WBCs seen 04/10/2025 10:38 AM EDT [facility] Gram Stain No organisms seen 10:38 AM EDT [facility] Swab Structure of right lower [...] MD MICROBIOLOGY - GENERAL ORDERABLES Final Result [facility]
[address] [place] [address], [place] [phone] [facility]
[address] [place] [address], [place] [phone] * Anaerobic Culture - Swab, Leg, Right (04/07/2025 9:07 PM EDT) Anaerobic Culture No anaerobes isolated at 5 days ALIZA 04/13/2025 7:21 AM EDT [facility] Swab Structure of right lower limb / Unknown Collection / Unknown 04/07/2025 9:07 PM EDT 04/08/2025 4:36 AM EDT us Sushil Dean Jr., MD MICROBIOLOGY - GENERAL ORDERABLES Final Result [facility]
[address] [place] [address], * Heparin Anti-Xa (04/07/2025 9:10 AM EDT) [facility] Heparin Anti-Xa ([facility]) 0.30 0.30 - 0.70 IU/ml 04/07/2025 10:12 AM EDT [facility] Blood Venipuncture / Unknown 04/07/2025 9:10 AM EDT 04/07/2025 9:38 AM EDT Una Perla PharmD LAB BLOOD ORDERABLES Final R esult [facility]
[address] [place] [address], * (ABNORMAL) CBC Auto Differential (04/07/2025 9:10 AM EDT) [facility] WBC 8.63 3.40 - 10.80 10*3/mm3 04/07/2025 9:50 AM EDT [facility] RBC 5.23 4.14 - 5.80 10*6/mm3 04/07/2025 9:50 AM EDT [facility] Hemoglobin 14.7 13.0 - 17.7 g/dL 04/07/2025 9:50 AM EDT [facility] Hematocrit 44.8 37.5 - 51.0 % 04/07/2025 9:50 AM EDT [facility] MCV 85.7 79.0 - 97.0 fL 04/07/2025 9:50 AM EDT [facility] MCH 28.1 26.6 - 33.0 pg 04/07/2025 9:50 AM EDT [facility] MCHC 32.8 31.5 - 35.7 g/dL 04/07/2025 9:50 AM EDT [facility] RDW 12.8 12.3 - 15.4 % 04/07/2025 9:50 AM [facility] RDW-SD 39.9 37.0 - 54.0 fl 04/07/2025 9:50 AM [facility] MPV 10.8 6.0 - 12.0 fL 04/07/2025 9:50 AM [facility] Platelets 149 140 - 450 10*3/mm3 04/07/2025 9:50 AM [facility] Neutrophil % 66.7 42.7 - 76.0 % 04/07/2025 9:50 AM [facility] Lymphocyte % 20.5 19.6 - 45.3 % 04/07/2025 9:50 AM [facility] Monocyte % 9.8 5.0 - 12.0 % 04/07/2025 9:50 AM [facility] Eosinophil % 2.1 0.3 - 6.2 % 04/07/2025 9:50 AM [facility] Basophil % 0.3 0.0 - 1.5 % 04/07/2025 9:50 AM [facility] Immature Grans % 0.6(H) 0.0 - 0.5 % 04/07/2025 9:50 AM [facility] Neutrophils, Absolute 5.75 1.70 - 7.00 10*3/mm3 04/07/2025 9:50 AM [facility] Lymphocytes, Absolute 1.77 0.70 - 3.10 10*3/mm3 04/07/2025 9:50 AM [facility] Monocytes, Absolute 0.85 0.10 - 0.90 10*3/mm3 04/07/2025 9:50 AM [facility] Eosinophils, Absolute 0.18 0.00 - 0.40 10*3/mm3 04/07/2025 9:50 AM [facility] [facility] Basophils, Absolute 0.03 0.00 - 0.20 10*3/mm3 04/07/2025 9:50 AM [facility] Immature Grans, Absolute 0.05 0.00 - 0.05 10*3/mm3 04/07/2025 9:50 AM EDT [facility] nRBC 0.0 0.0 - 0.2 /100 WBC 04/07/2025 9:50 AM EDT [facility] Blood Venipuncture / Unknown 04/07/2025 9:10 AM EDT 04/07/2025 9:38 AM EDT Jasonalfonso Álvarez LAB BLOOD ORDERABLES Final Resul t [facility]
[address] [place] [address], * (ABNORMAL) Basic Metabolic Panel (04/07/2025 9:10 AM EDT) Glucose 112(H) 65 - 99 mg/dL 04/07/2025 10:19 AM EDT [facility] BUN 13.1 6.0 - 20.0 mg/dL 04/07/2025 10:19 AM EDT [facility] Creatinine 0.77 0.76 - 1.27 mg/dL 04/07/2025 10:19 AM EDT [facility] Sodium 139 136 - 145 mmol/L 04/07/2025 10:19 AM EDT [facility] Potassium 4.2 3.5 - 5.2 mmol/L 04/07/2025 10:19 AM EDT [facility] Comment:Specimen hemolyzed. Result may be falsely elevated. Chloride 105 98 - 107 mmol/L 04/07/2025 10:19 AM EDT [facility] CO2 24.8 22.0 - 29.0 mmol/L 04/07/2025 10:19 AM EDT [facility] Calcium 8.6 8.6 - 10.5 mg/dL 04/07/2025 10:19 AM EDT [facility] BUN/Creatinine Ratio 17.0 7.0 - 25.0 04/07/2025 10:19 AM EDT [facility] Anion Gap 9.2 5.0 - 15.0 mmol/L 04/07/2025 10:19 AM EDT [facility] eGFR 113.2 >60.0 mL/min/1.7 3 04/07/2025 10:19 AM EDT [facility] Blood Venipuncture / Unknown 04/07/2025 9:10 AM EDT 04/07/2025 9:38 AM EDT Narrative [facility] - 04/07/2025 10:19 AM EDT [...] Álvarez LAB BLOOD ORDERABLES Final Resul t [facility]
[address] [place] [address], * MRI Tibia Fibula Right With & [...] [place] 04/07/2025 9:58 AM EDT Workstation ID: [id number] Narrative 04/07/2025 9:58 AM EDT MRI TIBIA [...] [place] 04/07/2025 9:58 AM EDT Workstation ID: [id number] Sushil Dean Jr., MD IM MRI ORDERABLES Mary Beth l Result * Heparin Anti-Xa (04/07/2025 1:42 AM EDT) [facility] Heparin Anti-Xa (UFH) 0.38 0.30 - 0.70 IU/ml 04/07/2025 2:14 AM EDT [facility] Blood Venipuncture / Unknown 04/07/2025 1:42 AM EDT 04/07/2025 1:54 AM EDT Chelsie Turpin [facility] LAB BLOOD ORDERABLES Final R esult [facility]
[address] [place] [address], * Heparin Anti-Xa (04/06/2025 7:16 PM EDT) [facility] Heparin Anti-Xa (UFH) 0.33 0.30 - 0.70 IU/ml 04/06/2025 7:50 PM EDT [facility] Blood Venipuncture / Unknown 04/06/2025 7:16 PM EDT 04/06/2025 7:35 PM EDT Cherri Beatty RP LAB BLOOD ORDERABLES Final Res ult Performing Organization Address City/[facility]/ZIP Co de Phone Number [facility]
[address] [place] [address], * Potassium (04/06/2025 7:16 PM EDT) Potassium 4.0 3.5 - 5.2 mmol/L 04/06/2025 7:53 PM EDT [facility] Blood Venipuncture / Unknown 04/06/2025 7:16 PM EDT 04/06/2025 7:35 PM EDT Jason Álvarez DO LAB BLOOD ORDERABLES Final Resul t Performing Organization Address [facility] de Phone Number [facility]
[address] [place] [address], * (ABNORMAL) Heparin Anti-Xa (04/06/2025 12:36 PM EDT) Heparin Anti-Xa (UFH) 0.24(L) 0.30 - 0.70 IU/ml 04/06/2025 1:23 PM EDT [facility] Blood Venipuncture / Unknown 04/06/2025 12:36 PM EDT 04/06/2025 1:07 PM EDT Una LundbergD LAB BLOOD ORDERABLES Final R esult Performing Organization Address [facility] Co de Phone Number [facility]
[address] [place] [address], * (ABNORMAL) Heparin Anti-Xa (04/06/2025 3:42 AM EDT) Heparin Anti-Xa (UFH) 0.25(L) 0.30 - 0.70 IU/ml 04/06/2025 5:30 AM EDT [facility] Blood Venipuncture / Unknown 04/06/2025 3:42 AM EDT 04/06/2025 4:59 AM EDT Chelsie Turpin [facility] LAB BLOOD ORDERABLES Final R esult [facility]
[address] [place] [address], * (ABNORMAL) Basic Metabolic Panel (04/06/2025 3:42 AM EDT) Pathologist [facility] Glucose 94 65 - 99 mg/dL 04/06/2025 5:59 AM EDT [facility] BUN 12.8 6.0 - 20.0 mg/dL 04/06/2025 5:59 AM EDT [facility] Creatinine 0.80 0.76 - 1.27 mg/dL 04/06/2025 5:59 AM EDT [facility] Sodium 138 136 - 145 mmol/L 04/06/2025 5:59 AM EDT [facility] Potassium 3.6 3.5 - 5.2 mmol/L 04/06/2025 5:59 AM EDT [facility] Chloride 103 98 - 107 mmol/L 04/06/2025 5:59 AM EDT [facility] CO2 24.2 22.0 - 29.0 mmol/L 04/06/2025 5:59 AM EDT [facility] Calcium 8.0(L) 8.6 - 10.5 mg/dL 04/06/2025 5:59 AM EDT [facility] BUN/Creatinine Ratio 16.0 7.0 - 25.0 04/06/2025 5:59 AM EDT [facility] Anion Gap 10.8 5.0 - 15.0 mmol/L 04/06/2025 5:59 AM EDT [facility] eGFR 111.9 >60.0 mL/min/1.7 3 04/06/2025 5:59 AM EDT [facility] Blood Venipuncture / Unknown 04/06/2025 3:42 AM EDT 04/06/2025 5:20 AM EDT [facility]ATORY - 04/06/2025 5:59 AM [...] DO LAB BLOOD ORDERABLES Final Resul t [facility]
[address] [place] [address], * (ABNORMAL) CBC Auto Differential (04/06/2025 3:41 AM EDT) WBC 10.86(H) 3.40 - 10.80 10*3/mm3 04/06/2025 5:04 AM EDT [facility] RBC 5.08 4.14 - 5.80 10*6/mm3 04/06/2025 5:04 AM EDT [facility] Hemoglobin 13.9 13.0 - 17.7 g/dL 04/06/2025 5:04 AM EDT [facility] Hematocrit 43.7 37.5 - 51.0 % 04/06/2025 5:04 AM EDT [facility] MCV 86.0 79.0 - 97.0 fL 04/06/2025 5:04 AM [facility] MCH 27.4 26.6 - 33.0 pg 04/06/2025 5:04 AM [facility] MCHC 31.8 31.5 - 35.7 g/dL 04/06/2025 5:04 AM [facility] RDW 12.8 12.3 - 15.4 % 04/06/2025 5:04 AM [facility] RDW-SD 40.0 37.0 - 54.0 fl 04/06/2025 5:04 AM [facility] MPV 11.7 6.0 - 12.0 fL 04/06/2025 5:04 AM [facility] Platelets 115(L) 140 - 450 10*3/mm3 04/06/2025 5:04 AM [facility] Neutrophil % 65.3 42.7 - 76.0 % 04/06/2025 5:04 AM [facility] Lymphocyte % 20.5 19.6 - 45.3 % 04/06/2025 5:04 AM [facility] Monocyte % 11.8 5.0 - 12.0 % 04/06/2025 5:04 AM [facility] Eosinophil % 1.8 0.3 - 6.2 % 04/06/2025 5:04 AM [facility] Basophil % 0.3 0.0 - 1.5 % 04/06/2025 5:04 AM [facility] Immature Grans % 0.3 0.0 - 0.5 % 04/06/2025 5:04 AM [facility] Neutrophils, Absolute 7.09(H) 1.70 - 7.00 10*3/mm3 04/06/2025 5:04 AM [facility] Lymphocytes, Absolute 2.23 0.70 - 3.10 10*3/mm3 04/06/2025 5:04 AM [facility] Monocytes, Absolute 1.28(H) 0.10 - 0.90 10*3/mm3 04/06/2025 5:04 AM EDT [facility] Eosinophils, Absolute 0.20 0.00 - 0.40 10*3/mm3 04/06/2025 5:04 AM EDT [facility] Basophils, Absolute 0.03 0.00 - 0.20 10*3/mm3 04/06/2025 5:04 AM EDT [facility] Immature Grans, Absolute 0.03 0.00 - 0.05 10*3/mm3 04/06/2025 5:04 AM EDT [facility] nRBC 0.0 0.0 - 0.2 /100 WBC 04/06/2025 5:04 AM EDT [facility] Blood Venipuncture / Unknown 04/06/2025 3:41 AM EDT 04/06/2025 4:58 AM EDT Jason Álvarez DO LAB BLOOD ORDERABLES Final Resul t Performing Organization Address City/[facility]/ZIP Co de Phone Number [facility]
[address] [place] [address], [place] [phone] * Heparin Anti-Xa (04/05/2025 8:43 PM EDT) [facility] Heparin Anti-Xa (UFH) 0.38 0.30 - 0.70 IU/ml 04/05/2025 9:09 PM EDT [facility] Blood Venipuncture / Unknown 04/05/2025 8:43 PM EDT 04/05/2025 8:55 PM EDT us Cherri Beatty [facility] LAB BLOOD ORDERABLES Final Res ult Performing Organization Address City/[facility]/ZIP Co de Phone Number [facility]
[address] [place] [address], [place] [phone] * CK (04/05/2025 12:15 PM EDT) Pathologist [facility] Creatine Kinase 140 20 - 200 U/L 04/05/2025 1:31 PM EDT [facility] Blood Venipuncture / Unknown 04/05/2025 12:15 PM EDT 04/05/2025 1:03 PM EDT Carlton Mead MD LAB BLOOD ORDERABLES Final R esult Performing Organization Address City/[facility]/ZIP Co de Phone Number [facility]
[address] [place] [address], * (ABNORMAL) Heparin Anti-Xa (04/05/2025 12:15 PM EDT) Heparin Anti-Xa (UFH) 0.17(L) 0.30 - 0.70 IU/ml 04/05/2025 1:21 PM EDT [facility] Blood Venipuncture / Unknown 04/05/2025 12:15 PM EDT 04/05/2025 1:04 PM EDT Una Perla PharmD LAB BLOOD ORDERABLES Final R esult [facility]
[address] [place] [address], * (ABNORMAL) aPTT (04/05/2025 3:54 AM EDT) PTT 35.3(L) 60.0 - 90.0 seconds 04/05/2025 4:31 AM EDT [facility] Blood Venipuncture / Unknown 04/05/2025 3:54 AM EDT 04/05/2025 4:15 AM EDT Narrative [facility] - 04/05/2025 4:31 AM EDT PTT = The equivalent PTT values for the therapeutic range of heparin levels at 0.3 to 0.5 U/ml are 60 to 70 seconds. Una Perla PharmD LAB BLOOD ORDERABLES Final R esult [facility]
[address] [place] [address], * Heparin Anti-Xa (04/05/2025 3:54 AM EDT) Pathologist [facility] Heparin Anti-Xa (UFH) 0.30 0.30 - 0.70 IU/ml 04/05/2025 4:32 AM EDT [facility] Blood Venipuncture / Unknown 04/05/2025 3:54 AM EDT 04/05/2025 4:15 AM EDT Una Xylo, IncD LAB BLOOD ORDERABLES Final R esult Performing Organization Address City/[facility]/ZIP Co de Phone Number [facility]
[address] [place] [address], * (ABNORMAL) CBC Auto Differential (04/05/2025 3:54 AM EDT) Pathologist [facility] WBC 11.18(H) 3.40 - 10.80 10*3/mm3 04/05/2025 4:20 AM EDT [facility] RBC 5.00 4.14 - 5.80 10*6/mm3 04/05/2025 4:20 AM EDT [facility] Hemoglobin 13.9 13.0 - 17.7 g/dL 04/05/2025 4:20 AM EDT [facility] Hematocrit 42.4 37.5 - 51.0 % 04/05/2025 4:20 AM EDT [facility] MCV 84.8 79.0 - 97.0 fL 04/05/2025 4:20 AM EDT [facility] MCH 27.8 26.6 - 33.0 pg 04/05/2025 4:20 AM EDT [facility] MCHC 32.8 31.5 - 35.7 g/dL 04/05/2025 4:20 AM [facility] RDW 12.9 12.3 - 15.4 % 04/05/2025 4:20 AM [facility] RDW-SD 39.7 37.0 - 54.0 fl 04/05/2025 4:20 AM [facility] MPV 10.2 6.0 - 12.0 fL 04/05/2025 4:20 AM [facility] Platelets 160 140 - 450 10*3/mm3 04/05/2025 4:20 AM [facility] Neutrophil % 73.5 42.7 - 76.0 % 04/05/2025 4:20 AM [facility] Lymphocyte % 14.0(L) 19.6 - 45.3 % 04/05/2025 4:20 AM [facility] Monocyte % 11.0 5.0 - 12.0 % 04/05/2025 4:20 AM [facility] Eosinophil % 0.8 0.3 - 6.2 % 04/05/2025 4:20 AM [facility] Basophil % 0.3 0.0 - 1.5 % 04/05/2025 4:20 AM [facility] Immature Grans % 0.4 0.0 - 0.5 % 04/05/2025 4:20 AM [facility] Neutrophils, Absolute 8.23(H) 1.70 - 7.00 10*3/mm3 04/05/2025 4:20 AM [facility] Lymphocytes, Absolute 1.56 0.70 - 3.10 10*3/mm3 04/05/2025 4:20 AM [facility] Monocytes, Absolute 1.23(H) 0.10 - 0.90 10*3/mm3 04/05/2025 4:20 AM [facility] Eosinophils, Absolute 0.09 0.00 - 0.40 10*3/mm3 04/05/2025 4:20 AM [facility] Basophils, Absolute 0.03 0.00 - 0.20 10*3/mm3 04/05/2025 4:20 AM EDT [facility] Immature Grans, Absolute 0.04 0.00 - 0.05 10*3/mm3 04/05/2025 4:20 AM EDT [facility] nRBC 0.0 0.0 - 0.2 /100 WBC 04/05/2025 4:20 AM EDT [facility] Blood Venipuncture / Unknown 04/05/2025 3:54 AM EDT 04/05/2025 4:16 AM EDT Una Perla PharmD LAB BLOOD ORDERABLES Final R esult [facility]
[address] [place] [address], * (ABNORMAL) Basic Metabolic Panel (04/05/2025 3:54 AM EDT) Glucose 152(H) 65 - 99 mg/dL 04/05/2025 4:40 AM EDT [facility] BUN 17.3 6.0 - 20.0 mg/dL 04/05/2025 4:40 AM EDT [facility] Creatinine 0.92 0.76 - 1.27 mg/dL 04/05/2025 4:40 AM EDT [facility] Sodium 136 136 - 145 mmol/L 04/05/2025 4:40 AM EDT [facility] Potassium 3.9 3.5 - 5.2 mmol/L 04/05/2025 4:40 AM EDT [facility] Chloride 103 98 - 107 mmol/L 04/05/2025 4:40 AM EDT [facility] CO2 24.0 22.0 - 29.0 mmol/L 04/05/2025 4:40 AM EDT [facility] Calcium 7.8(L) 8.6 - 10.5 mg/dL 04/05/2025 4:40 AM EDT [facility] BUN/Creatinine Ratio 18.8 7.0 - 25.0 04/05/2025 4:40 AM EDT [facility] Anion Gap 9.0 5.0 - 15.0 mmol/L 04/05/2025 4:40 AM EDT [facility] eGFR 105.2 >60.0 mL/min/1.7 3 04/05/2025 4:40 AM EDT [facility] Blood Venipuncture / Unknown 04/05/2025 [...] MD LAB BLOOD ORDERABLES Final Re sult [facility]
[address] [place] [address], * (ABNORMAL) aPTT (04/05/2025 12:18 AM EDT) PTT 33.6(L) 60.0 - 90.0 seconds 04/05/2025 12:53 AM EDT [facility] Blood Venipuncture / Unknown 04/05/2025 12:18 AM EDT 04/05/2025 12:37 AM EDT [facility]ATORY - 04/05/2025 12:53 AM EDT PTT = The equivalent PTT values for the therapeutic range of heparin levels at 0.3 to 0.5 U/ml are 60 to 70 seconds. AFAR PharmD LAB BLOOD ORDERABLES Final R esult Performing Organization Address City/[facility]/ZIP Co de Phone Number [facility]
[address] [place] [address], * (ABNORMAL) Protime-INR (04/05/2025 12:18 AM EDT) Protime 15.9(H) 12.2 - 15.3 Seconds 04/05/2025 12:53 AM EDT [facility] INR 1.19(H) 0.89 - 1.12 04/05/2025 12:53 AM EDT [facility] Blood Venipuncture / Unknown 04/05/2025 12:18 AM EDT 04/05/2025 12:37 AM EDT AFAR PharmD LAB BLOOD ORDERABLES Final R esult Performing Organization Address [facility] Co de Phone Number [facility]
[address] [place] [address], * Heparin Anti-Xa (04/05/2025 12:18 AM EDT) Pathologist [facility] Heparin Anti-Xa (UFH) 0.39 0.30 - 0.70 IU/ml 04/05/2025 12:54 AM EDT [facility] Blood Venipuncture / Unknown 04/05/2025 12:18 AM EDT 04/05/2025 12:37 AM EDT AFAR PharmD LAB BLOOD ORDERABLES Final R esult Performing Organization Address City/[facility]/ZIP Co de Phone Number [facility]
[address] [place] [address], * MRI Tibia Fibula Right With & [...] MD 04/04/2025 11:00 PM EDT Workstation ID: [id number] Narrative 04/04/2025 11:00 PM EDT MRI TIBIA [...] MD 04/04/2025 11:00 PM EDT Workstation ID: [id number] Leonora Shepherd MD IMG MRI ORDERABLES Final Resu lt * POC Creatinine (04/04/2025 2:49 PM EDT) Creatinine 1.10 0.60 - 1.30 mg/dL 04/07/2025 7:14 PM EDT [facility] Comment:Serial Number: [id number] 7Operator: [id number] Venous Blood 04/04/2025 2:49 PM EDT 04/07/2025 7:14 PM EDT Jason Álvarez DO POINT OF CARE TEST ORDERABLES Fi nal Result [facility]
[address] [place] [address], * (ABNORMAL) CBC Auto Differential (04/04/2025 2:47 PM EDT) [facility] WBC 12.72(H) 3.40 - 10.80 10*3/mm3 04/04/2025 2:56 PM EDT [facility] RBC 5.64 4.14 - 5.80 10*6/mm3 04/04/2025 2:56 PM EDT [facility] Hemoglobin 15.3 13.0 - 17.7 g/dL 04/04/2025 2:56 PM EDT [facility] Hematocrit 47.9 37.5 - 51.0 % 04/04/2025 2:56 PM EDT [facility] MCV 84.9 79.0 - 97.0 fL 04/04/2025 2:56 PM EDT [facility] MCH 27.1 26.6 - 33.0 pg 04/04/2025 2:56 PM EDT [facility] MCHC 31.9 31.5 - 35.7 g/dL 04/04/2025 2:56 PM EDT [facility] RDW 13.1 12.3 - 15.4 % 04/04/2025 2:56 PM EDT [facility] RDW-SD 40.3 37.0 - 54.0 fl 04/04/2025 2:56 PM EDT [facility] MPV 9.4 6.0 - 12.0 fL 04/04/2025 2:56 PM EDT [facility] Platelets 232 140 - 450 10*3/mm3 04/04/2025 2:56 PM EDT [facility] Neutrophil % 74.9 42.7 - 76.0 % 04/04/2025 2:56 PM EDT [facility] Lymphocyte % 13.1(L) 19.6 - 45.3 % 04/04/2025 2:56 PM EDT [facility] Monocyte % 11.2 5.0 - 12.0 % 04/04/2025 2:56 PM EDT [facility] Eosinophil % 0.4 0.3 - 6.2 % 04/04/2025 2:56 PM EDT [facility] Basophil % 0.2 0.0 - 1.5 % 04/04/2025 2:56 PM EDT [facility] Immature Grans % 0.2 0.0 - 0.5 % 04/04/2025 2:56 PM EDT [facility] Neutrophils, Absolute 9.52(H) 1.70 - 7.00 10*3/mm3 04/04/2025 2:56 PM EDT [facility] Lymphocytes, Absolute 1.66 0.70 - 3.10 10*3/mm3 04/04/2025 2:56 PM EDT [facility] Monocytes, Absolute 1.43(H) 0.10 - 0.90 10*3/mm3 04/04/2025 2:56 PM EDT [facility] Eosinophils, Absolute 0.05 0.00 - 0.40 10*3/mm3 04/04/2025 2:56 PM EDT [facility] Basophils, Absolute 0.03 0.00 - 0.20 10*3/mm3 04/04/2025 2:56 PM EDT [facility] Immature Grans, Absolute 0.03 0.00 - 0.05 10*3/mm3 04/04/2025 2:56 PM EDT [facility] nRBC 0.0 0.0 - 0.2 /100 WBC 04/04/2025 2:56 PM EDT [facility] Blood Venipuncture / Unknown 04/04/2025 2:47 PM EDT 04/04/2025 2:52 PM EDT us Mairo Crowley DO LAB BLOOD ORDERABLES Fin al Result [facility]
[address] [place] [address], * (ABNORMAL) C-reactive Protein (04/04/2025 2:47 PM EDT) C-Reactive Protein 8.57(H) 0.00 - 0.50 mg/dL 04/04/2025 3:26 PM EDT [facility] Blood Venipuncture / Unknown 04/04/2025 2:47 PM EDT 04/04/2025 2:52 PM EDT [facility]AB[facility] Fin al Result Performing Organization Address City/[facility]/ZIP Co de Phone Number [facility]
[address] [place] [address], * (ABNORMAL) Sedimentation Rate (04/04/2025 2:47 PM EDT) Pathologist [facility] Sed Rate 51(H) 0 - 15 mm/hr 04/04/2025 3:06 PM EDT [facility] Blood Venipuncture / Unknown 04/04/2025 2:47 PM EDT 04/04/2025 2:52 PM EDT [facility]athy [facility]sey[facility] BLOOD ORDERABLES Fin al Result Performing Organization Address City/[facility] Co de Phone Number [facility]
[address] [place] [address], * Comprehensive Metabolic Panel (04/04/2025 2:47 PM EDT) Pathologist [facility] Glucose 90 65 - 99 mg/dL 04/04/2025 3:26 PM EDT [facility] BUN 18.3 6.0 - 20.0 mg/dL 04/04/2025 3:26 PM EDT [facility] Creatinine 0.94 0.76 - 1.27 mg/dL 04/04/2025 3:26 PM EDT [facility] Sodium 136 136 - 145 mmol/L 04/04/2025 3:26 PM EDT [facility] Potassium 3.8 3.5 - 5.2 mmol/L 04/04/2025 3:26 PM EDT [facility] Chloride 100 98 - 107 mmol/L 04/04/2025 3:26 PM EDT [facility] CO2 25.3 22.0 - 29.0 mmol/L 04/04/2025 3:26 PM EDT [facility] Calcium 8.6 8.6 - 10.5 mg/dL 04/04/2025 3:26 PM T [facility] Total Protein 7.3 6.0 - 8.5 g/dL 04/04/2025 3:26 PM EDT [facility] Albumin 4.1 3.5 - 5.2 g/dL 04/04/2025 3:26 PM T [facility] ALT (SGPT) 26 1 - 41 U/L 04/04/2025 3:26 PM [facility] AST (SGOT) 25 1 - 40 U/L 04/04/2025 3:26 PM T [facility] Alkaline Phosphatase 106 39 - 117 U/L 04/04/2025 3:26 PM T [facility] Total Bilirubin 1.0 0.0 - 1.2 mg/dL 04/04/2025 3:26 PM T [facility] Globulin 3.2 gm/dL 04/04/2025 3:26 PM [facility] Comment:Calculated Result A/G Ratio 1.3 g/dL 04/04/2025 3:26 PM [facility] BUN/Creatinine Ratio 19.5 7.0 - 25.0 04/04/2025 3:26 PM [facility] Anion Gap 10.7 5.0 - 15.0 mmol/L 04/04/2025 3:26 PM [facility] eGFR 102.5 >60.0 mL/min/1.7 3 04/04/2025 3:26 PM [facility] Blood Venipuncture / Unknown 04/04/2025 2:47 PM EDT 04/04/2025 2:52 PM EDT [facility] - 04/04/2025 3:26 PM [...] DO LAB BLOOD ORDERABLES Fin al Result [facility]
[address] [place] [address], documented in this encounter Visit Diagnoses Diagnosis [...] Salazar, KELL)1943 (Given - Provider: Anahy Marcelino, DOOR SERVICEMAN)2129 (Canceled Entry - Provider: Anahy Marcelino DOOR SERVICEMAN - Comment: previously given) 0837 (Given - [...] Mon04/04/25 at 2102 0907 (Given - Provider: Shirely Hart RN)2026 (Given - Provider: Alberto Dillon [...] Continuous Medication Order 04/09/2025 04/10/2025 04/11/2025 heparin 31476 units/250 mL (100 units/mL) in 0.45 % [...] as of this encounter Care Teams Medical Facilities Section Director Relationship Specialty Start Date End Date Provider, [place] [address] PCP - General 05/09/23 documented as of this encounter
--- OUTSIDE RECORDS SUMMARY | 2025-04-07 20:36 | XMS_ITS | Encounter Summary ---
Author Organization [facility] Address [address] [place] [address] Care Team Providers Care Social Work Assistant Name Role Phone Provider, No Known Primary Care Provider Unavail able Reason for Visit * Auth/Cert Specialty Diagnoses / Procedures Referred By Bulmaro muniz Referred To Contact Diagnoses Right BKA infection Referral ID Status Reason Start Date Expiration Date Visits Re quested Visits Authorized [id number] 1 1 Encounter Details Date Type Department Care Team (Late st Contact Info) Description 04/07/2025 8:36 PM EDT Anesthesia Event [facility] OR [address] [place] [address] Luci Alonso DO [address] [place] [address] Anesthesia Record Procedure Summary Procedure Name Responsible [...] drink = 0.6 oz pur e alcohol) [facility] Utilities Answer Date Recorded In the past 12 months has [employer], gas, oil, or water [employer] threatened to shut off services in your [...] PACU on O2NC, breathing comfortably. Report to TRAFFIC OPERATIONS MANAGER at bedside. VSS. * Anesthesia Procedure Notes [...] Musculoskeletal Abdominal Substance History - negative use CALCULATION REVIEWER Other ROS/Med Hx Other: Eliquis 04/04/25 Hgb [...] been obtained with: patient. Plan discussed with CALL CENTER TEAM LEADER. CODE STATUS: Code Status (Patient has no [...] documented as of this encounter Care Teams Social Work Assistant Relationship Specialty Start Date End Date Provider, No Known [facility] [place] [address] PCP - General 05/09/23 documented as of this encounter
--- OUTSIDE RECORDS SUMMARY | 2025-04-08 14:45 | XMS_ITS | Encounter Summary ---
[facility] Address [address] [place] [address] Care Team Providers Care Electrical Installation Supervisor Name Role Phone Provider, No Known Primary Care Provider Unavail able Reason for Visit * Reason Comments Leg Swelling * Auth/Cert Specialty Diagnoses / Procedures Referred By Contac t Referred To Contact Diagnoses Right BKA infection Referral ID Status Reason Start Date Expiration Date Visits Re quested Visits Authorized [id number] 1 1 Encounter Details Date Type Department Care Team (Late st Contact Info) Description 04/08/2025 2:45 PM EDT - 04/08/2025 4:04 PM EDT Surgery [facility] OR [address] [place] [address] Sushil Dean Jr., MD [address] [place] [address] [address] [id number] LEG DEBRIDEMENT AND IRRIGATION Social History Tobacco Use Types Packs/Day Years Used Date Smoking Tobacco: Never Smokeless Tobacco: Never Tobacco Cessation:Counseling Given: Not Answered Alcohol Use Standard Drinks/Week Comments Not Currently 0 (1 standard drink = 0.6 oz pur e alcohol) [facility] Utilities Answer Date Recorded In the past 12 months has [employer] electric, gas, oil, or water company threatened [...] or training? Not on file Preferred Language Grenadian 04/07/2025 Sex and Gender Information Value Date [...] 2:25 PM EDT Cherri Grimm RN * [place] Suicide Severity Rating Scale (Screener/Recent Self-Report) Question [...] original note were not included. [facility] DISCHARGE SUMMARY Patient Name: Won [...] Appropriate affect, cooperative Neurologic: Oriented x 3, HSEN, speech clear Skin: No rashes on exposed [...] Date/Time Wound Culture - Swab, Leg, Right [[id number]] (Abnormal) (Susceptibility) Collected: 04/07/252106 Lab Status: Final [...] Units Date/Time FL C Arm During Surgery [[id number]] Resulted: 04/07/252137 Updated: 04/07/252137 Narrative: This procedure was auto-finalized with no dictation required. MRI Tibia Fibula Right With & Without Contrast [[id number]] Collected: 04/07/25 0938 Updated: 04/07/25 1001 Narrative: [...] Buenrostro 04/07/2025 9:58 AM EDT Workstation ID: [id number] MRI Tibia Fibula Right With & Without Contrast [[id number]] Collected: 04/04/252256 Updated: 04/04/252302 Narrative: MRI TIBIA [...] MD 04/04/2025 11:00 PM EDT Workstation ID: [id number] Pending Labs Order Current Status Fungus Culture [...] 3:42 PM EDT Associated attestation - Jadyn Richadrson DO - 04/11/2025 3:42 PM EDT I have reviewed this documentation and agree. * Omar Zavala RN - 04/10/2025 4:29 PM EDT Images from the original note were not included. Won Dennis (44 y.o. Male) Date of 1980 Social Security Number [id number] [place] [address] [place] [address] Latter Day Unknown Marital Status Unknown Admission [...] Plan Insurance Group Employer/Plan Group [place] [id number] Payor Plan Address Payor Plan Phone Number Payor Plan Fax Number Effective Dates [employer] [address] [address] 08/10/2023 - None Entered [facility] [address] Subscriber Name Subscriber Date Member ID WON DENNIS 1980 [id number] Emergency Contacts [employer] (Rel.) Home Phone Work Phone Mobile Phone Avril Dennis (Spouse) -- -- [phone] Robert Hackett (Relative) -- -- [phone] [facility] [address]G [address] [facility] [address] Patient: ROOM: [facility] Won Dennis [address] [facility] [place] [address] : 1980 SSN: [id number] Sex: M PCP: Provider, No Known Emergency Contact Information Name Relation Home Work Mobile Avril Dennis Spouse [phone] Other Contacts Name Relation Home Work Mobile Robert Hackett Relative [phone] INSURANCE PAYOR PLAN GROUP # SUBSCRIBER ID Primary: Secondary: MEDICARE [place] [id number] Admitting Diagnosis: Right BKA infection [T87.43] Order Date: Apr 09, 2025 Case Management Hand Developer Consult (Order ID: [id number]) Diagnosis: Priority: Routine Expected Date: Expiration Date: Interval: Once Count: Comments: Outpatient orders: 1. Outpatient intravenous antibiotic therapy: Daptomycin 800 mg IV daily to be supplied by [facility] 2. Home health to perform [...] INFECTIOUS DISEASE Progress Note Won Dennis 1980 [id number] Date of Consult: 04/10/2025 Admission Date: 04/04/2025 [...] him to seek treatment at [facility]. He is known to Dr. Dean. He [...] Jr., MD, 20 mg at 04/09/25906 heparin 92027 units/250 mL (100 units/mL) in 0.45 % [...] Units Date/Time FL C Arm During Surgery [[id number]] Resulted: 04/07/252137 Updated: 04/07/252137 Narrative: This procedure was auto-finalized with no dictation required. MRI Tibia Fibula Right With & Without Contrast [[id number]] Collected: 04/07/2538 Updated: 04/07/25 1001 Narrative: MRI [...] Buenrostro 04/07/2025 9:58 AM EDT Workstation ID: [id number] Impression: Recurrent Right BKA stump abscess/cellulitis- this [...] his disposition with the pharmacist at [facility] today. I will sign off Outpatient orders: 1. Outpatient intravenous antibiotic therapy: Daptomycin 800 mg IV daily to be supplied by [facility] 2. Home health to perform weekly [...] Creation Time: 04/10/251323 Signed Expand All [facility] Services PROGRESS NOTE Patient Name: [...] Date/Time Wound Culture - Swab, Leg, Right [[id number]] (Abnormal) (Susceptibility) Collected: 04/07/252106 Lab Status: Final [...] Row Name 04/06/25 1143 Sit-Stand Transfer Sit-Stand [place] (Transfers) modified independence - Comment, (Sit-Stand Transfer) Pt stood from recliner. Not holding onto walker, pt able to pull his pants up while balancing on his one leg. -LM Row Name 04/06/25 1143 Gait/Stairs (Locomotion) [place] Level (Gait) modified independence - Distance [...] Motion bilateral lower extremity ROM WFL -LM [facility] Name 04/06/25 1145 Strength Comprehensive (MMT) General Manual Muscle Testing (MMT) Assessment no strength deficits identified BLEs -LM [facility] Name 04/06/25 1145 Balance Balance [...] home at d/c. PT signing off. -LM [facility] Name 04/06/25 1146 Therapy Assessment/Plan (PT) Criteria for Skilled Interventions Met (PT) no;no problems identified which require skilled intervention -LM Therapy Frequency (PT) evaluation only -LM Predicted Duration of Therapy Intervention (PT) Eval Only -LM [facility] Name 04/06/25 1146 Vital Signs Pretreatment Heart Rate (beats/min) 86 -LM Posttreatment Heart Rate (beats/min) 96 -LM Pre SpO2 (%) 95 -LM O2 Delivery Pre Treatment room air -LM Post SpO2 (%) 96 -LM O2 Delivery Post Treatment room air -LM Pre Patient Position Sitting -LM Post Patient Position Sitting -LM [facility] Name 04/06/25 1146 Positioning and [...] Nurse Physical Therapy Education Title: PT OT CONDITIONING COACH Therapies (Done) Topic: Physical Therapy (Done) Point: Mobility training (Done) Learning Progress Summary Patient Acceptance, E, VU,DU by at 04/06/2025 1147 Point: Precautions (Done) Learning Progress Summary Patient Acceptance, E, VU,DU by at 04/06/2025 1147 User Cabrera Initials Effective Dates Name Provider Type [facility] 01/24/25 - Susan Cavazos, PT Physical [...] Description Service Date Service Provider Modifiers Qty [id number] PT EVAL LOW COMPLEXITY 3 04/06/2025 Susan [...] mg Daily 04/05/2025 -- Route: Oral heparin 38389 units/250 mL (100 units/mL) in 0.45 % [...] Dean MD April 21 vs April 22 [facility] [address], [address] [facility], [address] Please schedule at [phone] VONDA Garcia 04/11/25 08:32 EDT Cosigned by Sushil Dean Jr., MD at 04/19/2025 10:33 AM EDT Associated attestation - Sushil Dean Jr., MD - 04/19/2025 10:33 AM EDT I have reviewed this documentation and agree. * Rosario Hill APRN - 04/10/2025 1:24 PM EDT Images from the original note were not included. [facility] PROGRESS NOTE Patient Name: Won [...] Date/Time Wound Culture - Swab, Leg, Right [[id number]] (Abnormal) (Susceptibility) Collected: 04/07/252106 Lab Status: Final [...] mg Daily 04/05/2025 -- Route: Oral heparin 29309 units/250 mL (100 units/mL) in 0.45 % [...] Dean MD April 21 vs April 22 [facility] [address] [facility], [address] [facility], [address] Please schedule at [phone] VONDA Garcia 04/10/25 09:01 EDT Cosigned by Sushil Dean Jr., MD at 04/19/2025 10:33 AM EDT Associated attestation - Sushil Dean Jr., MD - 04/19/2025 10:33 AM EDT I have reviewed this documentation and agree. * Carlton Mead MD - 04/10/2025 7:38 AM EDT Images from the original note were not included. INFECTIOUS DISEASE Progress Note Won Dennis 1980 [id number] Date of Consult: 04/10/2025 Admission Date: 04/04/2025 [...] him to seek treatment at [facility]. He is known to Dr. Dean. He [...] IRRIGATION; Surgeon: Sushil Dean Jr., MD; Location: [facility] OR; Service: Orthopedics; Laterality: Right; PLACEMENT OF WOUND VAC Right 04/07/2025 Procedure: WOUND VACUUM ASSISTED CLOSURE; Surgeon: Sushil Dean Jr., MD; Location: [facility] OR; Service: Orthopedics; Laterality: Right; WOUND CLOSURE [...] Jr., MD, 20 mg at 04/09/25906 heparin 30728 units/250 mL (100 units/mL) in 0.45 % [...] Units Date/Time FL C Arm During Surgery [[id number]] Resulted: 04/07/252137 Updated: 04/07/252137 Narrative: This procedure was auto-finalized with no dictation required. MRI Tibia Fibula Right With & Without Contrast [[id number]] Collected: 04/07/25937 Updated: 04/07/25 100 Narrative: MRI [...] Buenrostro 04/07/2025 9:58 AM EDT Workstation ID: [id number] Impression: Recurrent Right BKA stump abscess/cellulitis- this [...] his disposition with the pharmacist at [facility] today. I will sign off Outpatient orders: 1. Outpatient intravenous antibiotic therapy: Daptomycin 800 mg IV daily to be supplied by [facility] 2. Home health to perform weekly [...] original note were not included. [facility] PROGRESS NOTE Patient Name: Won [...] Date/Time Wound Culture - Swab, Leg, Right [[id number]] (Abnormal) Collected: 04/07/252106 Lab Status: Preliminary result [...] mg Daily 04/05/2025 -- Route: Oral heparin 51644 units/250 mL (100 units/mL) in 0.45 % [...] in 2 weeks for incision check, radiographs [facility] [address], [address] [facility], [address] Please schedule at [phone] VONDA Garcia 04/09/25 09:18 EDT Cosigned by Sushil Dean Jr., MD at 04/19/2025 10:33 AM EDT Associated attestation - Sushil Dean Jr., MD - 04/19/2025 10:33 AM EDT I have reviewed this documentation and agree. * Carlton Mead MD - 04/09/2025 8:25 AM EDT Images from the original note were not included. INFECTIOUS DISEASE Progress Note Won Dennis 1980 [id number] Date of Consult: 04/09/2025 Admission Date: 04/04/2025 [...] him to seek treatment at [facility]. He is known to Dr. Dean. He [...] Sushil Dean Jr., MD; Location: [facility]; Service: Orthopedics; Laterality: Right; PLACEMENT OF [...] MD, 20 mg at 04/08/25 0800 heparin 99804 units/250 mL (100 units/mL) in 0.45 % [...] Units Date/Time FL C Arm During Surgery [[id number]] Resulted: 04/07/252137 Updated: 04/07/252137 Narrative: This procedure was auto-finalized with no dictation required. MRI Tibia Fibula Right With & Without Contrast [[id number]] Collected: 04/07/25 0938 Updated: 04/07/25 1001 Narrative: [...] Chitra 04/07/2025 9:58 AM EDT Workstation ID: [id number] Impression: Recurrent Right BKA stump abscess/cellulitis- this [...] mg IV daily to be supplied by [facility] 2. Home health to perform [...] original note were not included. [facility] PROGRESS NOTE Patient Name: Won [...] Buenrostro 04/07/2025 9:58 AM EDT Workstation ID: [id number] I have personally reviewed the therapy plans: [...] mg Daily 04/05/2025 -- Route: Oral heparin 43714 units/250 mL (100 units/mL) in 0.45 % [...] INFECTIOUS DISEASE Progress Note Won Dennis 1980 [id number] Date of Consult: 04/08/2025 Admission Date: 04/04/2025 [...] him to seek treatment at [facility]. He is known to Dr. Dean. He [...] Oral, Q6H PRN, 500 mg at 04/06/25 8714 OR acetaminophen (TYLENOL) 160 MG/5ML oral solution [...] Jr., MD, 20 mg at 04/07/25950 heparin 54177 units/250 mL (100 units/mL) in 0.45 % [...] Units Date/Time FL C Arm During Surgery [[id number]] Resulted: 04/07/252137 Updated: 04/07/252137 Narrative: This procedure was auto-finalized with no dictation required. MRI Tibia Fibula Right With & Without Contrast [[id number]] Collected: 04/07/25 0938 Updated: 04/07/25 1001 Narrative: [...] Buenrostro 04/07/2025 9:58 AM EDT Workstation ID: [id number] Impression: Right BKA stump cellulitis- s/p BKA with multiple surgical interventions with Known MRSA 05/09/2025. (Treated by ID in [place] Dr. Harris). Dr. Torres treated him with [...] original note were not included. [facility] PROGRESS NOTE Patient Name: Won [...] Buenrostro 04/07/2025 9:58 AM EDT Workstation ID: [id number] I have personally reviewed the therapy plans: [...] INFECTIOUS DISEASE Progress Note Won Dennis 1980 [id number] Date of Consult: 04/07/2025 Admission Date: 04/04/2025 [...] him to seek treatment at [facility]. He is known to Dr. Dean. He [...] MD, 20 mg at 04/06/25 0900 heparin 20171 units/250 mL (100 units/mL) in 0.45 % [...] With & Without Contrast - In process [[id number]] Resulted: 04/07/25828 Updated: 04/07/25828 This result has not been signed. Information might be incomplete. MRI Tibia Fibula Right With & Without Contrast [[id number]] Collected: 04/04/252256 Updated: 04/04/253 Narrative: MRI TIBIA [...] represent a small area of phlegmonous change ([id number] image 10) measuring approximately 1.6 cm which [...] MD 04/04/2025 11:00 PM EDT Workstation ID: [id number] Impression: Right BKA stump cellulitis- s/p BKA with multiple surgical interventions with Known MRSA 05/09/2025. (Treated by ID in [place] Dr. Harris). Dr. Torres treated him with [...] mg Daily 04/05/2025 -- Route: Oral heparin 40653 units/250 mL (100 units/mL) in 0.45 % [...] original note were not included. [facility] PROGRESS NOTE Patient Name: Won [...] MD 04/04/2025 11:00 PM EDT Workstation ID: [id number] I have personally reviewed the therapy plans: [...] from the original note were not included. Wno Dennis LOS: 2 days Patient Care Team: [...] mg Daily 04/05/2025 -- Route: Oral heparin 69998 units/250 mL (100 units/mL) in 0.45 % [...] INFECTIOUS DISEASE follow up. Won Dennis 1980 [id number] Date of Consult: 04/06/2025 Admission Date: 04/04/2025 [...] him to seek treatment at [facility]. He is known to Dr. Dean. He [...] MD, 20 mg at 04/06/25 0900 heparin 59333 units/250 mL (100 units/mL) in 0.45 % [...] Tibia Fibula Right With & Without Contrast [[id number]] Collected: 04/04/252256 Updated: 04/04/252302 Narrative: MRI TIBIA [...] represent a small area of phlegmonous change ([id number] image 10) measuring approximately 1.6 cm which [...] MD 04/04/2025 11:00 PM EDT Workstation ID: [id number] Impression: Right BKA stump cellulitis- s/p BKA with multiple surgical interventions with Known MRSA 05/09/2025. (Treated by ID in [place] Dr. Harris). Dr. Torres treated him with [...] original note were not included. [facility] PROGRESS NOTE Patient Name: Won [...] MD 04/04/2025 11:00 PM EDT Workstation ID: [id number] I have personally reviewed the therapy plans: [...] original note were not included. [facility] HISTORY AND PHYSICAL Patient Name: [...] MD 04/04/2025 11:00 PM EDT Workstation ID: [id number] Assessment & Plan Assessment & Plan Won [...] Rhoda Bonner RN [facility], tip verified by 3CG see LDA. * Sushil Dean Jr., MD - 04/05/2025 8:07 AM EDTAssociated Order(s): IP CONSULT TO ORTHOPEDIC SURGERY [facility] [address] [address] Orthopedic Consult Patient: Won Dennis Date of [...] was evaluated in the emergency department in [place], was discharged with instructions for follow-up. He [...] 04/03/2025 Morning Lactobacillus-Inulin ([facility]) capsule Take 200 mg by mouth [...] MD 04/04/2025 11:00 PM EDT Workstation ID: [id number] Assessment: Right BKA infection 44-year-old male with [...] DISEASE CONSULT/INITIAL HOSPITAL VISIT Won Dennis 1980 [id number] Date of Consult: 04/05/2025 Admission Date: 04/04/2025 [...] him to seek treatment at [facility]. He is known to Dr. Dean. He [...] Leonora Shepherd MD, 40 mg at 04/04/25 5696 sennosides-docusate (PERICOLACE) 8.6-50 MG per tablet 2 [...] MD, 20 mg at 04/05/25 09 heparin 01657 units/250 mL (100 units/mL) in 0.45 % [...] Leonora Shepherd MD, 10 mg at 04/04/25 6742 Pharmacy to Dose Heparin, , Not Applicable, [...] Tibia Fibula Right With & Without Contrast [[id number]] Collected: 04/04/252256 Updated: 04/04/252302 Narrative: MRI TIBIA [...] represent a small area of phlegmonous change (wikjaq90 image 10) measuring approximately 1.6 cm which [...] MD 04/04/2025 11:00 PM EDT Workstation ID: [id number] Impression: Right BKA stump cellulitis- s/p BKA with multiple surgical interventions with Known MRSA 05/09/2025. (Treated by ID in [place] Dr. Harris). Dr. Torres treated him with [...] Jr., MD - 04/08/2025 3:51 PM EDT [facility] OPERATIVE REPORT PATIENT NAME: Won Dennis DATE OF : 1980 PREOP DIAGNOSIS: Right Right below-knee amputation infection POSTOP DIAGNOSIS: Same. PROCEDURE: Right Right 70923: Secondary closure below-knee amputation SURGEON: Sushil Dean MD OPERATIVE TEAM: Lead Trainer: Susi Grullon RN Scrub Person: Mary Paredes Scrub Person Extra: Hortencia Toribio Other: Katt Gotti RN; Charis Neville RN ANESTHETIST: Anesthesiologist: Ulises Hoffman MD FORM STRIPPER: Stan Casillas CRNA Student Nurse Pipe Washer: Karol Albert SRNA ANESTHESIA: Choice ESTIMATED BLOOD [...] CULTURE (Canceled) Sushil Dean Jr., MD 04/08/25 9289 Description: RIGHT LEG DEEP WOUND FOR CULTURE [...] Jr., MD - 04/07/2025 9:03 PM EDT [facility], [place] [address] OPERATIVE REPORT PATIENT NAME: Won Dennis DATE OF : 1980 PREOP DIAGNOSIS: Right Right below knee amputation stump infection POSTOP DIAGNOSIS: Same. PROCEDURE: Right Right 78644: Incision and drainage of surgical site infection 28326: Debridement of skin, subcutaneous tissue, muscle 19781: Wound vacuum-assisted closure SURGEON: Sushil Dean MD OPERATIVE TEAM: Lead Trainer: Anum Sanchez RN Scrub Person: Hortencia Toribio; Gerald Ivey CUFF CUTTER: Anesthesiologist: Luci Alonso DO ANESTHESIA: General ESTIMATED [...] of the area. seen at [facility] yesterday for CT and US, here for [...] this chart in the absence of a pantry attendant. No orders to display RADIOLOGY: [x] [...] is discharging home with outpatient infusion at [facility]. He has an appointment with [facility] at 8:00 am tomorrow. They [...] to get IV ABX at home with [facility]; however, Medicaid lapsed on 04/08. DEBRA was unaware until this morning that Medicaid has lapsed. Patient explained that he has Medicare A and B. CM spoke with KELLEE and given themhis Medicare number [id number], she sent it to Admission. DEBRA spoke with Kerri, with [facility], and explained that he had Medicare A and B. However, it will not cover home infusion. It will be $64.00 a day out of packet. Patients can go to the Infusion center at [facility], and it will cover the cost as an outpatient. He will need to go there every day for infusion. They will be able to do the patients' PICC line dressing changes and lab work. DEBRA called [facility] Outpatient infusion center they can accept patient and start him. He is known for their facility. The Facility will need to run it through his insurance first. CM faxed the orders over to [facility] at [phone]. CM will follow up with them tomorrow at [facility] to make sure they received [...] 04/09/2025 2:51 PM EDT Continued Stay Note [facility] Patient Name: Won Dennis Today's Date: 04/09/2025 Admit Date: 04/04/2025 Plan: Home Discharge Plan Row Name 04/09/25 1311 Plan Plan Home Patient/Family in Agreement with Plan yes Plan Comments CM spoke with patient at bedside today. Wheelchair from [employer] is at bedside. Patient getting PICC [...] note were not included. Discharge Planning Assessment [facility] Patient Name: Won Dennis Today's [...] with family Patient/Family Anticipated Services at Transition correctional case managerintegration project manager Anticipated family or friend will provide Discharge Needs Assessment Equipment Currently Used at Home glucometer;shower chair;pulse ox;bp cuff;prosthesis;crutches Equipment Needed After Discharge none Discharge Plan Row Name 04/07/25 1144 Plan Plan Home Patient/Family in Agreement with Plan yes Plan Comments CM spoke with patient at bedside today. Patient lives with and his 5 kids in [facility]. 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 He has walker, cane, shower chair, and crutches. He requested a wheelchair for home. CM will order wheelchair through [facility]. He is not current with home health services. PCP is Dr. Jordan. Insurance is [employer] [place]. Patient discharge plan is home with priavte transport. CM will follow for any discharge needs. Final Discharge Disposition Code 01 - home or self-care Continued Care and Services - Admitted Since 04/04/2025 No active coordination exists. Demographic Summary Row Name 04/07/25 1143 General Information Arrived From hospital Preferred Language Grenadian Functional Status Row Name 04/07/25 1143 Functional [...] 5.80 10*6/mm3 04/11/2025 4:02 AM [facility] Hemoglobin 12.8(L) 13.0 - 17.7 g/dL 04/11/2025 4:02 AM [facility] Hematocrit 40.5 37.5 - 51.0 % 04/11/2025 4:02 AM [facility] MCV 86.2 79.0 - 97.0 fL 04/11/2025 4:02 AM [facility] MCH 27.2 26.6 - 33.0 pg 04/11/2025 4:02 AM [facility] MCHC 31.6 31.5 - 35.7 g/dL 04/11/2025 4:02 AM [facility] RDW 12.9 12.3 - 15.4 % 04/11/2025 4:02 AM [facility] RDW-SD 40.5 37.0 - 54.0 fl 04/11/2025 4:02 AM [facility] MPV 9.2 6.0 - 12.0 fL 04/11/2025 4:02 AM [facility] Platelets 267 140 - 450 10*3/mm3 04/11/2025 4:02 AM [facility] Neutrophil % 59.5 42.7 - 76.0 % 04/11/2025 4:02 AM [facility] Lymphocyte % 26.3 19.6 - 45.3 % 04/11/2025 4:02 AM [facility] Monocyte % 9.3 5.0 - 12.0 % 04/11/2025 4:02 AM [facility] Eosinophil % 4.1 0.3 - 6.2 % 04/11/2025 4:02 AM [facility] Basophil % 0.4 0.0 - 1.5 % 04/11[facility]2025 [facility] Immature Grans % 0.4 0.0 - 0.5 % 04/11/2025 4:02 AM EDT [facility] Neutrophils, Absolute 4.69 [...] Fi nal Result [facility]
[address] [place] [address], * (ABNORMAL) Comprehensive Metabolic Panel (04/11/2025 3:40 AM EDT) Glucose 108(H) 65 - 99 mg/dL 04/11/2025 4:19 AM EDT [facility] BUN 12.5 6.0 - 20.0 mg/dL 04/11/2025 4:19 AM EDT [facility] Creatinine 0.68(L) 0.76 - 1.27 mg/dL 04/11/2025 4:19 AM [facility] Sodium 140 136 - 145 mmol/L 04/11/2025 4:19 AM [facility] Potassium 3.8 3.5 - 5.2 mmol/L 04/11/2025 4:19 AM [facility] Chloride 105 98 - 107 mmol/L 04/11/2025 4:19 AM [facility] CO2 28.2 22.0 - 29.0 mmol/L 04/11/2025 4:19 AM [facility] Calcium 8.2(L) 8.6 - 10.5 mg/dL 04/11/2025 4:19 AM [facility] Total Protein 6.1 6.0 - 8.5 g/dL 04/11/2025 4:19 AM [facility] Albumin 3.1(L) 3.5 - 5.2 g/dL 04/11/2025 4:19 AM [facility] ALT (SGPT) 52(H) 1 - 41 U/L 04/11/2025 4:19 AM [facility] AST (SGOT) 40 1 - 40 U/L 04/11/2025 4:19 AM [facility] Alkaline Phosphatase 99 39 - 117 U/L 04/11/2025 4:19 AM [facility] Total Bilirubin 0.2 0.0 - 1.2 mg/dL 04/11/2025 4:19 AM [facility] Globulin 3.0 gm/dL 04/11/2025 4:19 AM [facility] Comment:Calculated Result A/G Ratio 1.0 g/dL 04/11/2025 4:19 AM [facility] BUN/Creatinine Ratio 18.4 7.0 - 25.0 04/11/2025 4:19 AM [facility] Anion Gap 6.8 5.0 - 15.0 mmol/L 04/11/2025 4:19 AM [facility] eGFR 117.5 >60.0 mL/min/1.7 3 [...] ORDERABLES Final Result [facility]
[address] [place] [address], * (ABNORMAL) CBC Auto Differential (04/10/2025 3:46 [...] 33.0 pg 04/10/2025 3:[facility] MCHC 32.2 31.5 - 35.7 g/dL 04/10/2025 3:56 AM EDT [facility] RDW 12.9 12.3 - 15.4 % 04/10/2025 3:56 AM [facility] RDW-SD 40.5 37.0 - 54.0 fl 04/10/2025 3:56 AM EDT [facility] MPV 9.5 6.0 - 12.0 fL 04/10/2025 3:56 AM EDT [facility] Platelets 227 140 - 450 10*3/mm3 04/10/2025 3:56 AM [facility] Neutrophil % 59.1 42.7 - 76.0 % 04/10/2025 3:56 AM [facility] Lymphocyte % 29.0 19.6 - 45.3 % 04/10/2025 3:56 AM [facility] Monocyte % 8.1 5.0 - 12.0 % 04/10/2025 3:56 AM [facility] Eosinophil % 3.2 0.3 - 6.2 % 04/10/2025 3:56 AM [facility] Basophil % 0.4 0.0 - 1.5 % 04/10/2025 3:56 AM [facility] Immature Grans % 0.2 0.0 - 0.5 % 04/10/2025 3:56 AM [facility] Neutrophils, Absolute 5.67 1.70 - 7.00 10*3/mm3 04/10/2025 3:56 AM [facility] Lymphocytes, Absolute 2.78 0.70 - 3.10 10*3/mm3 04/10/2025 3:56 AM [facility] Monocytes, Absolute 0.78 0.10 - 0.90 10*3/mm3 04/10/2025 3:56 AM [facility] Eosinophils, Absolute 0.31 0.00 [...] Final Resul t [facility]
[address] [place] [address], * (ABNORMAL) Basic Metabolic Panel (04/10/2025 3:46 [...] Final Resul t [facility]
[address] [place] [address], * Heparin Anti-Xa (04/10/2025 3:46 AM EDT) Heparin Anti-Xa (UFH) 0.35 0.30 - 0.70 IU/ml 04/10/2025 4:23 AM EDT [facility] Blood Venipuncture / Unknown 04/10/2025 3:46 AM EDT 04/10/2025 3:53 AM EDT Larisa Hamilton [facility] LAB BLOOD ORDERABLES Final R esult [facility]
[address] [place] [address], * Heparin Anti-Xa (04/09/2025 10:05 AM EDT) Pathologist [facility] Heparin Anti-Xa (UFH) 0.36 0.30 - 0.70 IU/ml 04/09/2025 11:12 AM EDT [facility] Blood Venipuncture / Unknown 04/09/2025 10:05 AM EDT 04/09/2025 10:47 AM EDT Larisa Hamilton [facility] LAB BLOOD ORDERABLES Final R esult [facility]
[address] [place] [address], * (ABNORMAL) CBC Auto Differential (04/09/2025 4:18 AM EDT) Pathologist [facility] WBC 11.00(H) 3.40 - 10.80 10*3/mm3 04/09/2025 [...] 15.4 % 04/09/2025 4:50 AM [facility] RDW-SD 39.9 37.0 - 54.0 fl 04/09/2025 4:50 AM [facility] MPV 10.0 6.0 - 12.0 fL 04/09/2025 4:50 AM [facility] Platelets 211 140 - 450 10*3/mm3 04/09/2025 4:50 AM [facility] Neutrophil % 74.8 42.7 - 76.0 % 04/09/2025 4:50 AM [facility] Lymphocyte % 15.4(L) 19.6 - 45.3 % 04/09/2025 4:50 AM [facility] Monocyte % 8.5 5.0 - 12.0 % 04/09/2025 4:50 AM [facility] Eosinophil % 0.6 0.3 - 6.2 % 04/09/2025 4:50 AM [facility] Basophil % 0.4 0.0 - 1.5 % 04/09/2025 4:50 AM [facility] Immature Grans % 0.3 0.0 - 0.5 % 04/09/2025 4:50 AM [facility] Neutrophils, Absolute 8.23(H) 1.70 - 7.00 10*3/mm3 04/09/2025 4:50 AM [facility] Lymphocytes, Absolute 1.69 0.70 - 3.10 10*3/mm3 04/09/2025 4:50 AM [facility] Monocytes, Absolute 0.94(H) 0.10 - 0.90 10*3/mm3 04/09/2025 4:50 AM [facility] Eosinophils, Absolute 0.07 0.00 - 0.40 10*3/mm3 04/09/2025 4:50 AM [facility] Basophils, Absolute 0.04 0.00 [...] ORDERABLES Fi nal Result Performing Organization Address City/[facility]/ZIP Co de Phone Number [facility]
[address] [place] [address], * Heparin Anti-Xa (04/09/2025 4:18 AM EDT) Heparin Anti-Xa (UFH) 0.41 0.30 - 0.70 IU/ml 04/09/2025 4:53 AM EDT [facility] Blood Venipuncture / Unknown 04/09/2025 4:18 AM EDT 04/09/2025 4:31 AM EDT Una LundbergD LAB BLOOD ORDERABLES Final R esult [facility]
[address] [place] [address], * (ABNORMAL) Basic Metabolic Panel (04/09/2025 4:18 [...] nal Result [facility]
[address] [place] [address], * Wound Culture - Swab, Leg, Right [...] GENERAL ORDERABLES Final Result Performing Organization Address City/[facility]/ZIP Co de Phone Number [facility]
[address] [place] [address], [facility]
[address] [place] [address], * Anaerobic Culture - Swab, Leg, Right (04/08/2025 3:40 PM EDT) Anaerobic Culture No anaerobes isolated at 5 days ALIZA 04/13/2025 7:24 AM EDT [facility] Swab Structure of right lower limb / Unknown 04/08/2025 3:40 PM EDT 04/08/2025 8:05 PM EDT us Sushil Dean Jr., MD MICROBIOLOGY - GENERAL ORDERABLES Final Result Performing Organization Address City/[facility]/ZIP Co de Phone Number [facility]
[address] [place] [address], * Scan Slide (04/08/2025 8:41 AM EDT) [...] Final R esult [facility]
[address] [place] [address], * (ABNORMAL) CBC Auto Differential (04/08/2025 8:41 [...] 54.0 fl 04/08/2025 11:02 AM [facility] MPV 11.0 6.0 - 12.0 fL 04/08/2025 11:02 AM [facility] Platelets 118(L) 140 - 450 10*3/mm3 04/08/2025 11:02 AM [facility] Neutrophil % 85.1(H) 42.7 - 76.0 % 04/08/2025 11:02 AM [facility] Lymphocyte % 9.3(L) 19.6 - 45.3 % 04/08/2025 11:02 AM [facility] Monocyte % 4.6(L) 5.0 - 12.0 % 04/08/2025 11:02 AM [facility] Eosinophil % 0.3 0.3 - 6.2 % 04/08/2025 11:02 AM [facility] Basophil % 0.2 0.0 - 1.5 % 04/08/2025 11:02 AM [facility] Immature Grans % 0.5 0.0 - 0.5 % 04/08/2025 11:02 AM [facility] Neutrophils, Absolute 8.57(H) 1.70 - 7.00 10*3/mm3 04/08/2025 11:02 AM [facility] Lymphocytes, Absolute 0.94 0.70 - 3.10 10*3/mm3 04/08/2025 11:02 AM [facility] Monocytes, Absolute 0.46 0.10 - 0.90 10*3/mm3 04/08/2025 11:02 AM [facility] Eosinophils, Absolute 0.03 0.00 - 0.40 10*3/mm3 04/08/2025 11:02 AM [facility] Basophils, Absolute 0.02 0.00 - 0.20 10*3/mm3 04/08/2025 11:02 AM [facility] Immature Grans, Absolute 0.05 0.00 - 0.05 10*3/mm3 04/08/2025 11:02 AM EDT [facility] nRBC 0.0 0.0 - 0.2 /100 WBC 04/08/2025 11:02 AM EDT [facility] Blood Venipuncture / Unknown 04/08/2025 8:41 AM EDT 04/08/2025 9:10 AM EDT Una Perla PharmD LAB BLOOD ORDERABLES Final R esult [facility]
[address] [place] [address], * (ABNORMAL) Basic Metabolic Panel (04/08/2025 8:41 [...] ORDERABLES Fi nal Result Performing Organization Address City/[facility]/ZIP Co de Phone Number [facility]
[address] [place] [address], * Heparin Anti-Xa (04/08/2025 8:41 AM EDT) Heparin Anti-Xa (UFH) 0.33 0.30 - 0.70 IU/ml 04/08/2025 9:40 AM EDT [facility] Blood Venipuncture / Unknown 04/08/2025 8:41 AM EDT 04/08/2025 9:10 AM EDT Sushil Dean Jr., MD LAB BLOOD ORDERABLES Fi nal Result Performing Organization Address City/[facility]/ZIP Co de Phone Number [facility]
[address] [place] [address], * FL C Arm During Surgery (04/07/2025 [...] GENERAL ORDERABLES Final Result Performing Organization Address City/[facility]/ZIP Co de Phone Number [facility]
[address] [place] [address], [place] [phone] [facility]
[address] [place] [address], [place] [phone] * Anaerobic Culture - Swab, Leg, Right [...] [facility]
[address] [place] [address], * Anaerobic Culture - Tissue, Leg (04/07/2025 9:13 PM EDT) Anaerobic Culture No anaerobes isolated at 5 days ALIZA 04/13/2025 7:21 AM EDT [facility] Tissue Lower limb structure / Unknown Collection / Unknown 04/07/2025 9:13 PM EDT 04/08/2025 4:54 AM EDT Jason Álvarez DO MICROBIOLOGY - GENERAL ORDERABLE S Final Result Performing Organization Address [facility]/State/ZIP Co de Phone Number [facility]
[address] [place] [address], * Tissue / Bone Culture - Tissue, [...] [facility]
[address] [place] [address], [facility]
[address] [place] [address], [place] [phone] * (ABNORMAL) Wound Culture - Swab, Leg, [...] [facility]
[address] [place] [address], [place] [phone] [facility]
[address] [place] [address], [place] [phone] * Anaerobic Culture - Swab, Leg, Right [...] [facility]
[address] [place] [address], * Heparin Anti-Xa (04/07/2025 9:10 AM EDT) Pathologist [facility] Heparin Anti-Xa (UFH) 0.30 0.30 - 0.70 IU/ml 04/07/2025 10:12 AM EDT [facility] Blood Venipuncture / Unknown 04/07/2025 9:10 AM EDT 04/07/2025 9:38 AM EDT Una Perla PharmD LAB BLOOD ORDERABLES Final R esult Performing Organization Address City/[facility]/ZIP Co de Phone Number [facility]
[address] [place] [address], * (ABNORMAL) CBC Auto Differential (04/07/2025 9:10 AM EDT) Pathologist [facility] WBC 8.63 3.40 - 10.80 10*3/mm3 04/07/2025 [...] 15.4 % 04/07/2025 9:50 AM [facility] RDW-SD 39.9 37.0 - 54.0 fl 04/07/2025 9:50 AM [facility] MPV 10.8 6.0 - 12.0 fL 04/07/2025 9:50 AM [facility] Platelets 149 140 - 450 10*3/mm3 04/07/2025 9:50 AM [facility] Neutrophil % 66.7 42.7 - 76.0 % 04/07/2025 9:50 AM [facility] Lymphocyte % 20.5 19.6 - 45.3 % 04/07/2025 9:50 AM [facility] Monocyte % 9.8 5.0 - 12.0 % 04/07/2025 9:50 AM [facility] Eosinophil % 2.1 0.3 - 6.2 % 04/07/2025 9:50 AM [facility] Basophil % 0.3 0.0 - 1.5 % 04/07/2025 9:50 AM [facility] Immature Grans % 0.6(H) 0.0 - 0.5 % 04/07/2025 9:50 AM [facility] Neutrophils, Absolute 5.75 1.70 - 7.00 10*3/mm3 04/07/2025 9:50 AM [facility] Lymphocytes, Absolute 1.77 0.70 - 3.10 10*3/mm3 04/07/2025 9:50 AM [facility] Monocytes, Absolute 0.85 0.10 - 0.90 10*3/mm3 04/07/2025 9:50 AM [facility] Eosinophils, Absolute 0.18 0.00 - 0.40 10*3/mm3 04/07/2025 9:50 AM [facility] Basophils, Absolute 0.03 0.00 - 0.20 10*3/mm3 04/07/2025 9:50 AM [facility] Immature Grans, Absolute 0.05 0.00 - 0.05 10*3/mm3 04/07/2025 9:50 AM EDT [facility] nRBC 0.0 0.0 - 0.2 /100 WBC 04/07/2025 9:50 AM EDT [facility] Blood Venipuncture / Unknown 04/07/2025 9:10 AM EDT 04/07/2025 9:38 AM EDT us Jason Álvarez DO LAB BLOOD ORDERABLES Final Resul t [facility]
[address] [place] [address], * (ABNORMAL) Basic Metabolic Panel (04/07/2025 9:10 [...] Final Resul t [facility]
[address] [place] [address], * MRI Tibia Fibula Right With & [...] [place] 04/07/2025 9:58 AM EDT Workstation ID: [id number] Narrative 04/07/2025 9:58 AM EDT MRI TIBIA [...] [place] 04/07/2025 9:58 AM EDT Workstation ID: [id number] Sushil Dean Jr., MD IMG MRI ORDERABLES Mary Beth l Result * Heparin Anti-Xa (04/07/2025 1:42 AM EDT) [facility] Heparin Anti-Xa (UFH) 0.38 0.30 - 0.70 IU/ml 04/07/2025 2:14 AM EDT [facility] Blood Venipuncture / Unknown 04/07/2025 1:42 AM EDT 04/07/2025 1:54 AM EDT Chelsie Turpin [facility] LAB BLOOD ORDERABLES Final R esult [facility]
[address] [place] [address], * Heparin Anti-Xa (04/06/2025 7:16 PM EDT) [facility] Heparin Anti-Xa (UFH) 0.33 0.30 - 0.70 IU/ml 04/06/2025 7:50 PM EDT [facility] Blood Venipuncture / Unknown 04/06/2025 7:16 PM EDT 04/06/2025 7:35 PM EDT Cherri Beatty [facility] LAB BLOOD ORDERABLES Final Res ult Performing Organization Address [facility] Co de Phone Number [facility]
[address] [place] [address], * Potassium (04/06/2025 7:16 PM EDT) [facility] Potassium 4.0 3.5 - 5.2 mmol/L 04/06/2025 7:53 PM EDT [facility] Blood Venipuncture / Unknown 04/06/2025 7:16 PM EDT 04/06/2025 7:35 PM EDT Jason Álvarez DO LAB BLOOD ORDERABLES Final Resul t Performing Organization Address [facility] de Phone Number [facility]
[address] [place] [address], * (ABNORMAL) Heparin Anti-Xa (04/06/2025 12:36 PM EDT) [facility] Heparin Anti-Xa (UFH) 0.24(L) 0.30 - 0.70 IU/ml 04/06/2025 1:23 PM EDT [facility] Blood Venipuncture / Unknown 04/06/2025 12:36 PM EDT 04/06/2025 1:07 PM EDT Una Perla PharmD LAB BLOOD ORDERABLES Final R esult Performing Organization Address [facility] Co de Phone Number [facility]
[address] [place] [address], * (ABNORMAL) Heparin Anti-Xa (04/06/2025 3:42 AM EDT) [facility] Heparin Anti-Xa (UFH) 0.25(L) 0.30 - 0.70 IU/ml 04/06/2025 5:30 AM EDT [facility] Blood Venipuncture / Unknown 04/06/2025 3:42 AM EDT 04/06/2025 4:59 AM EDT Chelsie Dyana [facility] LAB BLOOD ORDERABLES Final R esult [facility]
[address] [place] [address], * (ABNORMAL) Basic Metabolic Panel (04/06/2025 3:42 [...] Final Resul t [facility]
[address] [place] [address], * (ABNORMAL) CBC Auto Differential (04/06/2025 3:41 [...] 97.0 fL 04/06/2025 5:[facility] MCH 27.4 26.6 - 33.0 pg 04/06/2025 5:04 AM [facility] MCHC 31.8 31.5 - 35.7 g/dL 04/06/2025 5:04 AM [facility] RDW 12.8 12.3 - 15.4 % 04/06/2025 5:04 AM [facility] RDW-SD 40.0 37.0 - 54.0 fl 04/06/2025 5:04 AM [facility] MPV 11.7 6.0 - 12.0 fL 04/06/2025 5:04 AM [facility] Platelets 115(L) 140 - 450 10*3/mm3 04/06/2025 5:04 AM [facility] Neutrophil % 65.3 42.7 - 76.0 % 04/06/2025 5:04 AM [facility] Lymphocyte % 20.5 19.6 - 45.3 % 04/06/2025 5:04 AM [facility] Monocyte % 11.8 5.0 - 12.0 % 04/06/2025 5:04 AM [facility] Eosinophil % 1.8 0.3 - 6.2 % 04/06/2025 5:04 AM [facility] Basophil % 0.3 0.0 - 1.5 % 04/06/2025 5:04 AM [facility] Immature Grans % 0.3 0.0 - 0.5 % 04/06/2025 5:04 AM [facility] Neutrophils, Absolute 7.09(H) 1.70 - 7.00 10*3/mm3 04/06/2025 5:04 AM [facility] Lymphocytes, Absolute 2.23 0.70 - 3.10 10*3/mm3 04/06/2025 5:04 AM [facility] Monocytes, Absolute 1.28(H) 0.10 [...] ORDERABLES Final Resul t Performing Organization Address City/[facility] Co de Phone Number [facility]
[address] [place] [address], [place] [phone] * Heparin Anti-Xa (04/05/2025 8:43 PM EDT) Pathologist [facility] Heparin Anti-Xa (UFH) 0.38 0.30 - 0.70 IU/ml 04/05/2025 9:09 PM EDT [facility] Blood Venipuncture / Unknown 04/05/2025 8:43 PM EDT 04/05/2025 8:55 PM EDT us Cherri Beatty [facility] LAB BLOOD ORDERABLES Final Res ult Performing Organization Address City/[facility] Co de Phone Number [facility]
[address] [place] [address], [place] [phone] * CK (04/05/2025 12:15 PM EDT) Creatine Kinase 140 20 - 200 U/L 04/05/2025 1:31 PM EDT [facility] Blood Venipuncture / Unknown 04/05/2025 12:15 PM EDT 04/05/2025 1:03 PM EDT Carlton Mead MD LAB BLOOD ORDERABLES Final R esult Performing Organization Address City/[facility]/ZIP Co de Phone Number [facility]
[address] [place] [address], * (ABNORMAL) Heparin Anti-Xa (04/05/2025 12:15 PM EDT) [facility] Heparin Anti-Xa (UFH) 0.17(L) 0.30 - 0.70 IU/ml 04/05/2025 1:21 PM EDT [facility] Blood Venipuncture / Unknown 04/05/2025 12:15 PM EDT 04/05/2025 1:04 PM EDT Una Perla PharmD LAB BLOOD ORDERABLES Final R esult Performing Organization Address City/[facility] Co de Phone Number [facility]
[address] [place] [address], * (ABNORMAL) aPTT (04/05/2025 3:54 AM EDT) [...] 0.5 U/ml are 60 to 70 seconds. [employer] LAB BLOOD ORDERABLES Final R esult [facility]
[address] [place] [address], * Heparin Anti-Xa (04/05/2025 3:54 AM EDT) Pathologist [facility] Heparin Anti-Xa (UFH) 0.30 0.30 - 0.70 IU/ml 04/05/2025 4:32 AM EDT [facility] Blood Venipuncture / Unknown 04/05/2025 3:54 AM EDT 04/05/2025 4:15 AM EDT [employer] LAB BLOOD ORDERABLES Final R esult Performing Organization Address City/[facility]/ZIP Co de Phone Number [facility]
[address] [place] [address], * (ABNORMAL) CBC Auto Differential (04/05/2025 3:54 [...] 35.7 g/dL 04/05/2025 4:20 AM [facility] RDW 12.9 12.3 - 15.4 % 04/05/2025 4:20 AM [facility] RDW-SD 39.7 37.0 - 54.0 fl 04/05/2025 4:20 AM [facility] MPV 10.2 6.0 - 12.0 fL 04/05/2025 4:20 AM [facility] Platelets 160 140 - 450 10*3/mm3 04/05/2025 4:20 AM [facility] Neutrophil % 73.5 42.7 - 76.0 % 04/05/2025 4:20 AM [facility] Lymphocyte % 14.0(L) 19.6 - 45.3 % 04/05/2025 4:20 AM [facility] Monocyte % 11.0 5.0 - 12.0 % 04/05/2025 4:20 AM [facility] Eosinophil % 0.8 0.3 - 6.2 % 04/05/2025 4:20 AM [facility] Basophil % 0.3 0.0 - 1.5 % 04/05/2025 4:20 AM [facility] Immature Grans % 0.4 0.0 - 0.5 % 04/05/2025 4:20 AM [facility] Neutrophils, Absolute 8.23(H) 1.70 - 7.00 10*3/mm3 04/05/2025 4:20 AM [facility] Lymphocytes, Absolute 1.56 0.70 - 3.10 10*3/mm3 04/05/2025 4:20 AM [facility] Monocytes, Absolute 1.23(H) 0.10 - 0.90 10*3/mm3 04/05/2025 4:20 AM [facility] Eosinophils, Absolute 0.09 0.00 - 0.40 10*3/mm3 04/05/2025 4:20 AM [facility] Basophils, Absolute 0.03 [...] Final R esult [facility]
[address] [place] [address], * (ABNORMAL) Basic Metabolic Panel (04/05/2025 3:54 [...] Final Re sult [facility]
[address] [place] [address], * (ABNORMAL) aPTT (04/05/2025 12:18 AM EDT) [...] 0.5 U/ml are 60 to 70 seconds. [employer] LAB BLOOD ORDERABLES Final R esult [facility]
[address] [place] [address], [place] [phone] * (ABNORMAL) Protime-INR (04/05/2025 12:18 AM EDT) Protime 15.9(H) 12.2 - 15.3 Seconds 04/05/2025 12:53 AM EDT [facility] INR 1.19(H) 0.89 - 1.12 04/05/2025 12:53 AM EDT [facility] Blood Venipuncture / Unknown 04/05/2025 12:18 AM EDT 04/05/2025 12:37 AM EDT [employer] LAB BLOOD ORDERABLES Final R esult Performing Organization Address [facility] Co de Phone Number [facility]
[address] [place] [address], [place] [phone] * Heparin Anti-Xa (04/05/2025 12:18 AM EDT) Pathologist [facility] Heparin Anti-Xa ([facility]) 0.39 0.30 - 0.70 IU/ml 04/05/2025 12:54 AM EDT [facility] Blood Venipuncture / Unknown 04/05/2025 12:18 AM EDT 04/05/2025 12:37 AM EDT [employer] LAB BLOOD ORDERABLES Final R esult Performing Organization Address City/[facility]/ZIP Co de Phone Number [facility]
[address] [place] [address], [place] [phone] * MRI Tibia Fibula Right With & [...] MD 04/04/2025 11:00 PM EDT Workstation ID: [id number] Narrative 04/04/2025 11:00 PM EDT MRI TIBIA [...] MD 04/04/2025 11:00 PM EDT Workstation ID: [id number] Leonora Shepherd MD IMG MRI ORDERABLES Final Resu lt * POC Creatinine (04/04/2025 2:49 PM EDT) Creatinine 1.10 0.60 - 1.30 mg/dL 04/07/2025 7:14 PM EDT [facility] Comment:Serial Number: [id number] 7Operator: [id number] Venous Blood 04/04/2025 2:49 PM EDT 04/07/2025 7:14 PM EDT Jason Álvarez DO POINT OF CARE TEST ORDERABLES Fi nal Result [facility]
[address] [place] [address], [place] [phone] * (ABNORMAL) CBC Auto Differential (04/04/2025 2:47 PM EDT) [facility] Signature WBC 12.72(H) 3.40 - 10.80 [...] Fin al Result [facility]
[address] [place] [address], * (ABNORMAL) C-reactive Protein (04/04/2025 2:47 PM EDT) Pathologist [facility] C-Reactive Protein 8.57(H) 0.00 - 0.50 mg/dL 04/04/2025 3:26 PM EDT [facility] Blood Venipuncture / Unknown 04/04/2025 2:47 PM EDT 04/04/2025 2:52 PM EDT Mario Ortiz Keo LAB BLOOD ORDERABLES Fin al Result [facility]
[address] [place] [address], * (ABNORMAL) Sedimentation Rate (04/04/2025 2:47 PM EDT) [facility] Sed Rate 51(H) 0 - 15 mm/hr 04/04/2025 3:06 PM EDT [facility] Blood Venipuncture / Unknown 04/04/2025 2:47 PM EDT 04/04/2025 2:52 PM EDT Mario Ortiz Keo LAB BLOOD ORDERABLES Fin al Result Performing Organization Address City/[facility]/ZIP Co de Phone Number [facility]
[address] [place] [address], * Comprehensive Metabolic Panel (04/04/2025 2:47 PM [...] Globulin 3.2 gm/dL 04/04/2025 3:26 PM T [facility] Comment:Calculated Result A/G Ratio 1.3 g/dL 04/04/2025 3:26 PM EDT [facility] BUN/Creatinine Ratio 19.5 7.0 - 25.0 04/04/2025 3:26 PM T [facility] Anion Gap 10.7 5.0 - 15.0 mmol/L 04/04/2025 3:26 PM T [facility] eGFR 102.5 >60.0 mL/min/1.7 3 04/04/2025 3:26 PM [facility] Blood Venipuncture / [...] Fin al Result [facility]
[address] [place] [address], documented in this encounter Visit Diagnoses Diagnosis [...] Salazar, KELL)1943 (Given - Provider: Anahy Marcelino, [employer] ATTENDANT)2129 (Canceled Entry - Provider: Anahy Marcelino [employer] ATTEND[employer] - Comment: previously given) 0837 (Given - [...] medication prescribed for a lower pain scale. 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
--- OUTSIDE RECORDS SUMMARY | 2025-04-08 15:34 | XMS_ITS | Encounter Summary ---
Author Organization [facility] Address [address] [place] [address] Care Team Providers Care Pickler Helper Name Role Phone Provider, No Known Primary Care Provider Unavail able Reason for Visit * Auth/Cert Specialty Diagnoses / Procedures Referred By Bulmaro muniz Referred To Contact Diagnoses Right BKA infection Referral ID Status Reason Start Date Expiration Date Visits Re quested Visits Authorized [id number] 1 1 Encounter Details Date Type Department Care Team (Late st Contact Info) Description 04/08/2025 3:34 PM EDT Anesthesia Event [facility] OR [address] [place] [address] Ulises Hoffman MD [address] [place] [address] Jairo Brooks MD [address] [place] [address] Anesthesia Record Procedure Summary Procedure Name Responsible [...] e alcohol) [facility] Utilities Answer Date Recorded In the past 12 months has [employer], oil, or water [employer] threatened to shut off services in your [...] Date: 04/08/25 Room / Location: [facility] OR [address] [place] [address] [facility] [place] Anesthesia Start: 1533 Anesthesia Stop: [...] ROS Abdominal Substance History - negative use 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
--- OUTSIDE RECORDS SUMMARY | 2025-04-27 09:10 | XMS_ITS | Clinical Summary ---
Author Organization [facility] Address [address] [place] [address] Phone Care Team Providers Care Civil Preparedness Officer Name Role Phone Unavailable Unavailable Conditions or Problems No information available. Medications No information available. Medications Administered No information available. Allergies, Adverse Reactions, Alerts No information available. Results No information available. Plan of Care No information available. Procedures No information available. Vital Signs No information available. Immunizations No information available. Advance Directives No information available.
--- OUTSIDE RECORDS SUMMARY | 2025-04-27 09:11 | XMS_ITS | Patient Health Record ---
[facility] [address] [place] [id number] Care Team Providers Care Lumber Sorter Machine Name Role Phone Zeeshan Salazar Primary Care [...] W/U Status Risk Notes Problem Essential hypertension (53171005) HTN [Hypertension] (401.9) Active confirmed appears resolved Problem Hypothyroidism (98131405) Hypothyroidism NOS (244.9) Active confirmed Problem Hyperlipidemia (04018718) Hyperlipidemia (272.4) Active confirmed Problem Constipation (88671351) Constipation, unspecified constipation type (K59.00) Active confirmed Problem History of pulmonary embolism on long-term anticoagulation therapy (73643974225829340 ) Hx pulmonary embolism (Z86.711) Active confirmed Problem Long-term current use of anticoagulant (376072217) 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) Active confirmed Problem Adjustment disorder with anxious mood (13813670) Adjustment disorder with anxious mood (F43.22) Active confirmed Problem History of pulmonary embolus (407011075) History of pulmonary embolus (PE) (Z86.711) Active confirmed Problem Methicillin resistant Staphylococcus aureus infection (disorder) (775565048) Infection of wound due to methicillin resistant Staphylococcus aureus (MRSA) (A49.02) Active confirmed Problem Arthritis of knee (964667962) Arthritis of knee (M17.10) Active confirmed Problem Amputated below knee (134361224) 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
--- OUTSIDE RECORDS SUMMARY | 2025-04-27 09:11 | XMS_ITS | Clinical Summary ---
Author Organization [facility] Address [address] [place] [address] Care Team Providers Care Rn Dialysis Name Role Phone Provider, No Known Primary [...] Discontinue d(Stop Taking at Discharge) Lactobacillus- Inulin ([facility]) capsule Take [...] Description 04/08/2025 3:34 PM EDT Anesthesia Event [facility] [place] [place] [address] [place] [phone] Ulises Hoffman MD Wells, Jeremy B., MD 04/08/2025 2:45 PM EDT - 04/08/2025 4:04 PM EDT Surgery [facility] OR [address] [place] [address] Sushil Dean Jr., MD LEG DEBRIDEMENT AND IRRIGATION 04/07/2025 8:36 PM EDT Anesthesia Event [facility] OR [address] [place] [address] Luci Alonso DO 04/07/2025 6:00 PM EDT - 04/07/2025 6:52 PM EDT Surgery [facility] OR [address] [place] [address] Sushil Dean Jr., MD LEG DEBRIDEMENT, IRRIGATION 04/04/2025 4:10 PM EDT - 04/11/2025 1:58 PM EDT Hospital Encounter [facility] 5G [address] [place] [address] Mario Crowley DO Anderson, Laurie, [...] Recorded In the past 12 months has beneSol, gas, oil, or water epicurio threatened to shut off services in your [...] this topic Medical Devices Implanted Type Area Product Support Technician Device Identifier Shelf Expiration Date Model / Serial / Lot Dev Wnd/Cls Contrl Tiss Stratafix Spiral Pls Pds Ct1 0 22cm - [id number] Implanted:Qty: 1 on 04/08/2025 by Sushil Dean Jr., MD at [facility] Implant Right: Leg [employer] 12/07/2025 [id number] / / [id number] Procedures Procedure Name Priority [...] 3:4 0 PM EDT Right BKA infection [place] SEC ABDOMINAL WALL SUTURE EVISCERATION/DEHSN 04/08/2025 3:20 [...] the time period is included. Pathologist [facility] WBC 7.87 3.40 - 10.80 10*3/mm3 04/11/2025 4:02 AM EDT [facility] RBC 4.70 4.14 - 5.80 10*6/mm3 04/11/2025 4:02 AM EDT [facility] Hemoglobin 12.8(L) 13.0 - 17.7 g/dL 04/11/2025 4:02 AM EDT [facility] Hematocrit 40.5 37.5 - 51.0 % 04/11/2025 4:02 AM EDT [facility] MCV 86.2 79.0 - 97.0 fL 04/11/2025 4:02 AM EDT [facility] MCH 27.2 26.6 - 33.0 pg 04/11/2025 4:02 AM EDT [facility] MCHC 31.6 31.5 - 35.7 g/dL 04/11/2025 4:02 AM EDT [facility] RDW 12.9 12.3 - 15.4 % 04/11/2025 4:02 AM EDT [facility] RDW-SD 40.5 37.0 - 54.0 fl 04/11/2025 4:02 AM EDT [facility] MPV 9.2 6.0 - 12.0 fL 04/11/2025 4:02 AM EDT [facility] Platelets 267 140 - 450 10*3/mm3 04/11/2025 4:02 AM EDT [facility] Neutrophil % 59.5 42.7 - 76.0 % 04/11/2025 4:02 AM EDT [facility] Lymphocyte % 26.3 19.6 - 45.3 % 04/11/2025 4:02 AM EDT [facility] Monocyte % 9.3 5.0 - 12.0 % 04/11/2025 4:02 AM [facility] Eosinophil % 4.1 0.3 - 6.2 % 04/11/2025 4:02 AM EDT [facility] Basophil % 0.4 0.0 - 1.5 % 04/11/2025 4:02 AM [facility] Immature Grans % 0.4 0.0 - 0.5 % 04/11/2025 4:02 AM [facility] Neutrophils, Absolute 4.69 1.70 - 7.00 10*3/mm3 04/11/2025 4:02 AM [facility] Lymphocytes, Absolute 2.07 0.70 - 3.10 10*3/mm3 04/11/2025 4:02 AM [facility] Monocytes, Absolute 0.73 0.10 - 0.90 10*3/mm3 04/11/2025 4:02 AM [facility] Eosinophils, Absolute 0.32 0.00 - 0.40 10*3/mm3 04/11/2025 4:02 AM [facility] Basophils, Absolute 0.03 0.00 - 0.20 10*3/mm3 04/11/2025 4:02 AM [facility] Immature Grans, Absolute 0.03 0.00 - 0.05 10*3/mm3 04/11/2025 4:02 AM [facility] nRBC 0.0 0.0 - 0.2 /100 WBC 04/11/2025 4:02 AM [facility] Blood Venipuncture / Unknown 04/11/2025 3:40 AM EDT 04/11/2025 3:59 AM EDT Sushil Dean Jr., MD LAB BLOOD ORDERABLES Fi nal Result [facility]
[address] [place] [address], * (ABNORMAL) Comprehensive Metabolic Panel (04/11/2025 3:40 AM EDT) Only the most recent of2 resultswithin the time period is included. Glucose 108(H) 65 - 99 mg/dL 04/11/2025 4:19 AM EDT [facility] BUN 12.5 6.0 - 20.0 mg/dL 04/11/2025 4:19 AM EDT [facility] Creatinine 0.68(L) 0.76 - 1.27 mg/dL 04/11/2025 4:19 AM EDT [facility] Sodium 140 136 - 145 mmol/L 04/11/2025 4:19 AM EDT [facility] Potassium 3.8 3.5 - 5.2 mmol/L 04/11/2025 4:19 AM EDT [facility] Chloride 105 98 - 107 mmol/L 04/11/2025 4:19 AM EDT [facility] CO2 28.2 22.0 - 29.0 mmol/L 04/11/2025 4:19 AM EDT [facility] Calcium 8.2(L) 8.6 - 10.5 mg/dL 04/11/2025 4:19 AM EDT [facility] Total Protein 6.1 6.0 - 8.5 g/dL 04/11/2025 4:19 AM EDT [facility] Albumin 3.1(L) 3.5 - 5.2 g/dL 04/11/2025 4:19 AM EDT [facility] ALT (SGPT) 52(H) 1 - 41 U/L 04/11/2025 4:19 AM EDT [facility] AST (SGOT) 40 1 - 40 U/L 04/11/2025 4:19 AM EDT [facility] Alkaline Phosphatase 99 39 - 117 U/L 04/11/2025 4:19 AM EDT [facility] Total Bilirubin 0.2 0.0 - 1.2 mg/dL 04/11/2025 4:19 AM EDT [facility] Globulin 3.0 gm/dL 04/11/2025 4:19 AM EDT [facility] Comment:Calculated Result A/G Ratio 1.0 g/dL 04/11/2025 4:19 AM EDT [facility] BUN/Creatinine Ratio 18.4 7.0 - 25.0 04/11/2025 4:19 AM EDT [facility] Anion Gap 6.8 5.0 - 15.0 mmol/L 04/11/2025 4:19 AM EDT [facility] eGFR 117.5 >60.0 mL/min/1.7 [...] race as a factor us Rosario Hill AUTOMATIC LOG CUT OFF SAWYER LAB BLOOD ORDERABLES Final Result [facility]
[address] [id number], * Heparin Anti-Xa (04/10/2025 3:46 AM EDT) Only the most recent of13 resultswithin the time period is included. Heparin Anti-Xa (UFH) 0.35 0.30 - 0.70 IU/ml 04/10/2025 4:23 AM EDT [facility] Blood Venipuncture / Unknown 04/10/2025 3:46 AM EDT 04/10/2025 3:53 AM EDT Larisa Hamilton [facility] LAB BLOOD ORDERABLES Final R esult [facility]
[address] [place] [address], * (ABNORMAL) Basic Metabolic Panel (04/10/2025 3:46 [...] [facility]
[address] [place] [address], * Wound Culture - Swab, Leg, Right (04/08/2025 3:40 PM EDT) Only the most recent of3 resultswithin the time period is included. Wound Culture No growth at 3 days ALIZA 04/11/2025 10:40 AM EDT [facility] Gram Stain Few (2+) WBCs seen 04/11/2025 10:40 AM EDT [facility] Gram Stain No organisms seen 04/11/2025 10:40 AM EDT [facility] Swab Structure of right lower limb / Unknown 04/08/2025 3:40 PM EDT 04/08/2025 8:05 PM EDT Sushil Dean Jr., MD MICROBIOLOGY - GENERAL ORDERABLES Final Result Performing Organization Address City/[facility]/ZIP Co de Phone Number [facility]
[address] [place] [address], [facility]
[address] [place] [address], [place] [phone] * Anaerobic Culture - Swab, Leg, Right (04/08/2025 3:40 PM EDT) Only the most recent of4 resultswithin the time period is included. Anaerobic Culture No anaerobes isolated at 5 days ALIZA 04/13/2025 7:24 AM EDT [facility] Swab Structure of right lower limb / Unknown 04/08/2025 3:40 PM EDT 04/08/2025 8:05 PM EDT Sushil Dean Jr., MD MICROBIOLOGY - GENERAL ORDERABLES Final Result Performing Organization Address [facility] Co de Phone Number [facility]IC LABOR[facility]ORY
[address] [place] [address], * Scan Slide (04/08/2025 8:41 AM EDT) [...] ORDERABLES Final R esult Performing Organization Address City/[facility]/ZIP Co de Phone Number [facility]
[address] [place] [address], [place] [phone] * FL C Arm During Surgery (04/07/2025 9:32 PM EDT) Narrative SYSTEMGENERATED, DOCUMENTATION - 04/07/2025 9:38 PM EDT This procedure was auto-finalized with no dictation required. us Sushil Dean Jr., MD IMG FLUOROSCOPY ORDERAB LES Final Result * Tissue / Bone Culture - Tissue, Leg, Right (04/07/2025 9:13 PM EDT) Tissue Culture No growth at 3 days ALIZA 04/11/2025 10:36 AM EDT [facility] Gram Stain Rare (1+) WBCs seen 04/11/2025 10:36 AM EDT [facility] Gram Stain No organisms seen 04/11/2025 10:36 AM EDT [facility] Tissue Structure of right lower limb / Unknown 04/07/2025 9:13 PM EDT 04/08/2025 4:54 AM EDT us Sushil Dean Jr., MD MICROBIOLOGY - GENERAL ORDERABLES Final Result [facility]
[address] [place] [address], [facility]
[address] [place] [address], * BH AN ETT AIRWAY (04/07/2025 8:44 [...] [place] 04/07/2025 9:58 AM EDT Workstation ID: [id number] Narrative 04/07/2025 9:58 AM EDT MRI TIBIA [...] [place]ro 04/07/2025 9:58 AM EDT Workstation ID: [id number] Sushil Dean Jr., MD IMG MRI ORDERABLES Mary Beth l Result * Potassium (04/06/2025 7:16 PM EDT) Potassium 4.0 3.5 - 5.2 mmol/L 04/06/2025 7:53 PM EDT [facility] Blood Venipuncture / Unknown 04/06/2025 7:16 PM EDT 04/06/2025 7:35 PM EDT Jason Álvarez DO LAB BLOOD ORDERABLES Final Resul t Performing Organization Address City/[facility]/ZIP Co de Phone Number [facility]
[address] [place] [address], * CK (04/05/2025 12:15 PM EDT) Creatine Kinase 140 20 - 200 U/L 04/05/2025 1:31 PM EDT [facility] Blood Venipuncture / Unknown 04/05/2025 12:15 PM EDT 04/05/2025 1:03 PM EDT Carlton Mead MD LAB BLOOD ORDERABLES Final R esult Performing Organization Address City/[facility]/ZIP Co de Phone Number [facility]
[address] [place] [address], * (ABNORMAL) aPTT (04/05/2025 3:54 AM EDT) [...] 0.5 U/ml are 60 to 70 seconds. [employer] LAB BLOOD ORDERABLES Final R esult Performing Organization Address City/[facility]/ZIP Co de Phone Number [facility]
[address] [place] [address], * (ABNORMAL) Protime-INR (04/05/2025 12:18 AM EDT) Pathologist [facility] Protime 15.9(H) 12.2 - 15.3 Seconds 04/05/2025 12:53 AM EDT [facility] INR 1.19(H) 0.89 - 1.12 04/05/2025 12:53 AM EDT [facility] Blood Venipuncture / Unknown 04/05/2025 12:18 AM EDT 04/05/2025 12:37 AM EDT [employer] LAB BLOOD ORDERABLES Final R esult Performing Organization Address City/[facility]/ZIP Co de Phone Number [facility]
[address] [place] [address], * POC Creatinine (04/04/2025 2:49 PM EDT) Pathologist [facility] Creatinine 1.10 0.60 - 1.30 mg/dL 04/07/2025 7:14 PM EDT [facility] Comment:Serial Number: [id number] 7Operator: [id number] Venous Blood 04/04/2025 2:49 PM EDT 04/07/2025 7:14 PM EDT Jason Álvarez DO POINT OF CARE TEST ORDERABLES Fi nal Result Performing Organization Address [facility] Co de Phone Number [facility]
[address] [place] [address], * (ABNORMAL) Sedimentation Rate (04/04/2025 2:47 PM EDT) Sed Rate 51(H) 0 - 15 mm/hr 04/04/2025 3:06 PM EDT [facility] Blood Venipuncture / Unknown 04/04/2025 2:47 PM EDT 04/04/2025 2:52 PM EDT Mario Crowley LAB BLOOD ORDERABLES Fin al Result Performing Organization Address [facility] de Phone Number [facility]
[address] [place] [address], * (ABNORMAL) C-reactive Protein (04/04/2025 2:47 PM EDT) C-Reactive Protein 8.57(H) 0.00 - 0.50 mg/dL 04/04/2025 3:26 PM EDT [facility] Blood Venipuncture / Unknown 04/04/2025 2:47 PM EDT 04/04/2025 2:52 PM EDT Mario Crowley DO LAB BLOOD ORDERABLES Fin al Result Performing Organization Address [facility] Co de Phone Number [facility]
[address] [place] [address], from Last 3 Months Additional Health Concerns [...] Of Support Discussed With: Patient Care Teams Rn Dialysis Relationship Specialty Start Date End Date Provider, No Known [facility] [place] [address] PCP - General 05/09/23
--- OUTSIDE RECORDS SUMMARY | 2025-04-27 09:11 | XMS_ITS | Encounter Summary ---
Author Organization [facility] Address [address] [place] [address] Care Team Providers Care Insurance Case Manager Name Role Phone Unavailable Primary Care Provider Unavailabl e Encounter Details Date Type Department Care Team (Late st Contact Info) Description 10/03/2022 Lab Requisition [facility] Lab [address] [place] [address] Dalila Cox MD [address], [place] [id number] Encounter for general adult medical examination without [...] Culture Neelima albicans(A) 10/05/2022 11:58 AM EDT [email or web address] Comment: This result was determined by MALDI tof Mass spectrometry. This assay was developed and its performance characteristics determined by [facility] as appropriate for clinical purposes. [...] Edited Result - Final [facility] [address] [place] [address] documented in this encounter Visit Diagnoses Diagnosis Encounter for general adult medical examination without abnormal findings documented in this encounter
--- OUTSIDE RECORDS SUMMARY | 2025-04-27 09:12 | XMS_ITS | Encounter Summary ---
Author Organization Healthcare Address [address] [place] [address] Care Team Providers Care Non Profit Financial Controller Name Role Phone Unavailable Primary Care Provider Unavailabl e Encounter Details Date Type Department Care Team (Late st Contact Info) Description 05/13/2023 Lab Requisition [facility] [address] [place] [address] Sushil Dean MD [address] [facility]. [address] [place] [address] Encounter for general adult medical examination without [...] RDERABLES Final Result Performing Organization Address [facility] Co de Phone Number [facility] [address] [place] [address] * Anaerobic Culture (05/13/2023 9:17 AM EDT) Culture No growth at day 4 05/20/2023 10:35 AM EST [facility] Bone 05/13/2023 9:17 AM EDT 05/13/2023 1:25 PM EDT us Sushil Dean MD LAB MICROBIOLOGY - GENERAL O RDERABLES Final Result Performing Organization Address [facility] de Phone Number [facility] [address] [place] [address] * Bone Culture and Gram Stain (05/13/2023 [...] RDERABLES Final Result Performing Organization Address [facility] de Phone Number [facility] [address] [place] [address] documented in this encounter Visit Diagnoses Diagnosis Encounter for general adult medical examination without abnormal findings documented in this encounter
--- OUTSIDE RECORDS SUMMARY | 2025-04-27 09:12 | XMS_ITS | Encounter Summary ---
Author Organization Healthcare Address [address] [place] [address] Care Team Providers Care Transportation Lead Name Role Phone Unavailable Primary Care Provider Unavailabl e Encounter Details Date Type Department Care Team (Late st Contact Info) Description 07/20/2022 Lab Requisition [facility] [address] [place] [address] Sushil Dean MD [address] [place] [address] Encounter for general adult medical examination without [...] at day 4 07/27/2022 11:[address] [facility] Bone Specimen from bone / Unknown 07/20/2022 1:36 PM EST 07/20/2022 5:52 PM EST us Sushil Dean MD LAB MICROBIOLOGY - GENERAL O RDERABLES Final Result Performing Organization Address City/[facility] Co de Phone Number HEALTHCARE LAB [address] [place] [address] * Bone Culture and Gram Stain (07/20/2022 1:36 PM EST) Culture No growth at day 4 2022 9:16 AM EST [facility] Gram Stain Result Rare Polymorphonuclear leukocytes 07/24/2022 9:16 AM EST [facility] Gram Stain Result No organisms seen 07/24/2022 9:[address] [facility] Bone Specimen from bone / Unknown 07/20/2022 1:36 PM EST 07/20/2022 5:52 PM EST us Sushil Dean MD LAB MICROBIOLOGY - GENERAL O RDERABLES Final Result Performing Organization Address City/[facility] Co de Phone Number [facility] [address] [place] [address] documented in this encounter Visit Diagnoses Diagnosis Encounter for general adult medical examination without abnormal findings documented in this encounter
--- OUTSIDE RECORDS SUMMARY | 2025-04-27 09:12 | XMS_ITS | Encounter Summary ---
Author Organization [facility] Address [address] [place] [address] Care Team Providers Care Sixth Grade Teacher Name Role Phone Provider, No Known [...] 2:25 PM EDT Cherri Grimm RN * [place] Suicide Severity Rating Scale (Screener/Recent Self-Report) Question [...] documented as of this encounter Care Teams Sixth Grade Teacher Relationship Specialty Start Date End Date Provider, No Known [facility] [place] [address] PCP - General 05/09/23 documented as of this encounter
--- OUTSIDE RECORDS SUMMARY | 2025-04-27 09:12 | XMS_ITS | Encounter Summary ---
Author Organization Healthcare Address [address] [place] [address] Care Team Providers Care Clinical Cytogeneticist Scientist Name Role Phone Unavailable Primary Care Provider Unavailabl e Encounter Details Date Type Department Care Team (Late st Contact Info) Description 08/12/2022 Lab Requisition [facility] [address] [place] [address] Sushli Dean MD [address] [place] [address] Encounter for general adult medical examination without [...] has been identified using the FDA Approved MaxxAthleteer CA System The organism value for this [...] O ERIC Final Result Performing Organization Address City/[facility] de Phone Number HEALTHCARE LAB [address] [place] [address] * Bone Culture and Gram Stain (08/12/2022 [...] O RDERABLES Final Result Performing Organization Address City/[facility] de Phone Number [facility] [address] [place] [address] documented in this encounter Visit Diagnoses Diagnosis Encounter for general adult medical examination without abnormal findings documented in this encounter
--- OUTSIDE RECORDS SUMMARY | 2025-04-27 09:12 | XMS_ITS | Encounter Summary ---
Author Organization Healthcare Address [address] [place] [address] Care Team Providers Care Custodian Athletic Equipment Name Role Phone Unavailable Primary Care Provider Unavailabl e Encounter Details Date Type Department Care Team (Late st Contact Info) Description 05/17/2023 Lab Requisition [facility] [address] [place] [address] Sushil Dean MD [address] [facility] [address] [place] [address] Encounter for general adult medical examination without [...] O RDERABLES Final Result Performing Organization Address City/[facility] Co de Phone Number [facility] [address] [place] [address] * Bone Culture and Gram Stain (05/17/2023 [...] O RDERABLES Final Result Performing Organization Address [facility] Co de Phone Number [facility] [address] [place] [address] documented in this encounter Visit Diagnoses Diagnosis Encounter for general adult medical examination without abnormal findings documented in this encounter
--- OUTSIDE RECORDS SUMMARY | 2025-04-27 09:12 | XMS_ITS | Encounter Summary ---
Author Organization Healthcare Address [address] [place] [address] Care Team Providers Care Drum Sander Setter Name Role Phone Unavailable Primary Care Provider Unavailabl e Encounter Details Date Type Department Care Team (Late st Contact Info) Description 10/19/2022 Lab Requisition [facility] [address] [place] [address] Sushil Dean MD [address] [place] [address] Encounter for general adult medical examination without [...] by MALDI tof mass spectrometry using the [employer] database and is for research use only. The organism value for this result has been updated. These results have been appended to the previously preliminary verified report. Bone Specimen from bone / Unknown 10/19/2022 5:17 PM EDT 10/19/2022 9:49 PM EDT Sushil Dean MD LAB MICROBIOLOGY - GENERAL O RDERABLES Final Result Performing Organization Address [facility] de Phone Number HEALTHCARE LAB [address] [place] [address] * Bone Culture and Gram Stain (10/19/2022 5:17 PM EDT) Culture No growth at day 4 2022 8:14 AM EDT [facility] Gram Stain Result Few Polymorphonuclear leukocytes 10/23/2022 8:14 AM EDT [facility] Gram Stain Result No organisms seen 10/23/2022 8:14 AM EDT [facility] Bone Specimen from bone / Unknown 10/19/2022 5:17 PM EDT 10/19/2022 9:49 PM EDT Sushil Dean MD LAB MICROBIOLOGY - GENERAL O RDERAADDI Final Result Performing Organization Address [facility] Phone Number [facility]ALTH[facility]ARE [facility] [address] [place] [phone] documented in this encounter Visit Diagnoses Diagnosis Encounter for general adult medical examination without abnormal findings documented in this encounter
--- OUTSIDE RECORDS SUMMARY | 2025-04-27 09:12 | XMS_ITS | Encounter Summary ---
Author Organization Healthcare Address [address] [place] [address] Care Team Providers Care Online Banking Specialist Name Role Phone Unavailable Primary Care Provider Unavailabl e Encounter Details Date Type Department Care Team (Late st Contact Info) Description 07/20/2022 Lab Requisition [facility] [address] [place] [address] Sushil Dean MD [address] [place] [address] Encounter for general adult medical examination without [...]
--- OUTSIDE RECORDS SUMMARY | 2025-04-27 09:12 | XMS_ITS | Encounter Summary ---
Author Organization Healthcare Address [address] [place] [address] Care Team Providers Care Mandarin Tutor Name Role Phone Unavailable Primary Care Provider Unavailabl e Encounter Details Date Type Department Care Team (Late st Contact Info) Description 10/01/2022 Lab Requisition [facility] [address] [place] [address] Sushil Dean MD [address] [facility] [place] [address] Encounter for general adult medical examination without [...] has been identified using the FDA Approved Intepat IP Servicesyper CA System The organism value for this [...] 10/04/2022 2:17 PM EDT Refer to culture [id number] FOR SUSCEPTIBILITIES ON NEELIMA ALBICANS us Sushil Dean MD LAB MICROBIOLOGY - GENERAL O RDERABLES Final Result [facility] [address] [place] [id number] documented in this encounter Visit Diagnoses Diagnosis Encounter for general adult medical examination without abnormal findings documented in this encounter
--- OUTSIDE RECORDS SUMMARY | 2025-04-27 09:12 | XMS_ITS | Clinical Summary ---
Author Organization Healthcare Address [address] [place] [address] Care Team Providers Care Cash Applications Representative Name Role Phone Unavailable Primary Care [...]
== END 2025-04-27 09:45 | disposition home or self-care (01) ==
LOC: INF 09:07
PROVIDERS: PCP Nurse Practitioner Family; Visit Provider Internal Medicine Infectious Disease
DX: L03.115 Cellulitis of right lower limb (principal); L02.415 Cutaneous abscess of right lower limb; Z89.511 Acquired absence of right leg below knee; L30.9 Dermatitis, unspecified; D68.2 Hereditary deficiency of other clotting factors; I10 Essential (primary) hypertension; E78.5 Hyperlipidemia, unspecified; F39 Unspecified mood [affective] disorder
CPT/HCPCS: 96365

== ENCOUNTER 2025-04-28 12:44 | Outpatient (CLI) | payer MEDICARE, SELFPAY ==
[2025-04-28 13:11] VITALS: BP 112/80; PULSE 75; RESP 18; O2SAT 95
[2025-04-28] MEDS: SODIUM CHLORIDE 0.9% 10ML FLUSH SYRINGE 10 ML IV (13:11)
[2025-04-28] MEDS: DAPTOmycin 1,000 MG in 0.9 % SODIUM CHLORIDE 50 ML 100 MG IV (13:11)
[2025-04-28 13:28] LABS: Hematocrit 44.8 % (42.0-52.0); Hemoglobin 14.1 g/dL (14.1-18.0); Immature Granulocytes % 0.3 %; Mean Corpuscular HGB Conc 31.5 g/dL (31.8-35.4); Mean Corpuscular Hemoglobin 26.7 pg (27.0-31.2); Mean Corpuscular Volume 84.8 fl (80-94); Nucleated Red Blood Cells % 0 %; Platelet Count 201 K/mm3 (142-424); Red Blood Count 5.28 M/mm3 (4.60-6.20); Red Cell Distribution Width-SD 39.6 fL; White Blood Count 10.9 K/mm3 (4.8-10.8)
[2025-04-28 13:31] LABS: Alanine Aminotransferase 59 U/L (12-78); Albumin Level 3.9 g/dl (3.5-5.0); Albumin/Globulin Ratio 1.3 (1.1-1.8); Alkaline Phosphatase 101 U/L (38-126); Anion Gap 11.9 mEq/L (5-15); Aspartate Amino Transferase 35 U/L (17-59); Bilirubin,Total 0.8 mg/dl (0.2-1.3); Blood Urea Nitrogen 21 mg/dl (9-20); Calcium 8.4 mg/dl (8.4-10.2); Carbon Dioxide 24 mmol/L (22.0-30.0); Chloride 106 mmol/L (98-107); Creatine Kinase 162 U/L (55-170); Creatinine,Serum 0.90 mg/dl (0.66-1.25); Estimated Glomerular Filt Rate 92 ml/min (>60); GFR (African American) 111 ML/MIN (>60); Globulin 3.1 g/dL (1.3-3.2); Glucose 142 mg/dl (74-100); Potassium 3.9 mmoL/L (3.5-5.1); Sodium 138 mmol/L (136-145); Total Protein,Serum 7.0 g/dl (6.3-8.2)
[2025-04-28 13:36] LABS: C-Reactive Protein 12.0 mg/L (0-4)
[2025-04-28 14:00] VITALS: BP 108/60; PULSE 79; RESP 18; O2SAT 94
== END 2025-04-28 23:59 | disposition home or self-care (01) ==
PROVIDERS: PCP Nurse Practitioner Family; Visit Provider Internal Medicine Infectious Disease
DX: L03.115 Cellulitis of right lower limb (principal); L02.415 Cutaneous abscess of right lower limb; Z89.511 Acquired absence of right leg below knee; D68.2 Hereditary deficiency of other clotting factors; I10 Essential (primary) hypertension; E78.5 Hyperlipidemia, unspecified; F39 Unspecified mood [affective] disorder
CPT/HCPCS: 36592; 80053; 82550; 85025; 85651; 86140; 96365; J0878

== ENCOUNTER 2025-04-29 14:47 | Outpatient (CLI) | payer MEDICARE, SELFPAY ==
--- OUTSIDE RECORDS SUMMARY | 2025-04-04 16:10 | XMS_ITS | Encounter Summary ---
Author Organization [facility] Address [address] [place] [address] Care Team Providers Care Paper Coating Supervisor Name Role Phone Provider, No Known Primary Care Provider Unavail able Reason for Visit * Reason Comments Leg Swelling * Auth/Cert Specialty Diagnoses / Procedures Referred By Contlevy t Referred To Contact Diagnoses Right BKA infection Referral ID Status Reason Start Date Expiration Date Visits Re quested Visits Authorized [id number] 1 1 Encounter Details Date Type Department Care Team (Late st Contact Info) Description 04/04/2025 4:10 PM EDT - 04/11/2025 1:58 PM EDT Hospital Encounter [address] [place] [address] Mario Crowley, [address] [place] [address] Leonora Shepherd MD [address] [address] Jason Álvarez DO [address] [address] Jadyn Richardson DO [address] [address] Cellulitis of right lower extremity (Primary Dx); Below-knee amputation of right lower extremity, initial encounter; Right BKA infection Discharge Disposition: Home or Self Care Social History Tobacco Use Types Packs/Day Years Used Date Smoking Tobacco: Never Smokeless Tobacco: Never Tobacco Cessation:Counseling Given: Not Answered Alcohol Use Standard Drinks/Week Comments Not Currently 0 (1 standard drink = 0.6 oz pur e alcohol) [facility] Utilities Answer Date Recorded In the past 12 months has th e [employer], gas, oil, or water company threatened to [...] or training? Not on file Preferred Language [place] 04/07/2025 Sex and Gender Information Value Date [...] 2:25 PM EDT Cherri Grimm RN * Wilber Suicide Severity Rating Scale (Screener/Recent Self-Report) Question [...] from the original note were not included. [facility] Medicine Services DISCHARGE SUMMARY [...] Date/Time Wound Culture - Swab, Leg, Right [[id number]] (Abnormal) (Susceptibility) Collected: 04/07/252106 Lab Status: Final [...] Units Date/Time FL C Arm During Surgery [[id number]] Resulted: 04/07/252137 Updated: 04/07/252137 Narrative: This procedure was auto-finalized with no dictation required. MRI Tibia Fibula Right With & Without Contrast [[id number]] Collected: 04/07/25 0938 Updated: 04/07/25 1001 Narrative: [...] Buenrostro 04/07/2025 9:58 AM EDT Workstation ID: [id number] MRI Tibia Fibula Right With & Without Contrast [[id number]] Collected: 04/04/252256 Updated: 04/04/252302 Narrative: MRI TIBIA [...] MD 04/04/2025 11:00 PM EDT Workstation ID: [id number] Pending Labs Order Current Status Fungus Culture [...] FLOMAX 1 capsule, Nightly Stop These Medications [facility] Digestive [facility] capsule doxycycline 100 MG tablet [...] Male) Date of 1980 Social Security Number [id number] [place] [address] [employer] Unknown Marital Status Unknown Admission Date 04/04/2025 Admission Type Emergency Admitting Provider Jadyn Richardson DO Attending Provider Jadyn Richardson DO Department, Room/Bed [address], S565/1 Discharge Date Discharge Disposition Discharge [...] Group [place] [id number] Payor Plan Address Payor Plan Phone Number Payor Plan Fax Number Effective Dates [employer] [address] [address] 08/10/2023 - None Entered [place] [address] Subscriber Name Subscriber Date Member ID WON DENNIS 1980 [id number] Emergency Contacts Immigration Coordinator (Rel.) Home Phone Work Phone Mobile Phone Avril Dennis (Spouse) -- -- [phone] LewRobert (Relative) -- -- [phone] [facility] [address] Patient: ROOM: [facility] Won Dennis [address] [place] [address] : 1980 SSN: [id number] Sex: M PCP: Provider, No Known Emergency Contact Information Name Relation Home Work Mobile Avril Dennis Spouse [phone] Other Contacts Name Relation Home Work Mobile Robert Hackett Relative [phone] INSURANCE PA[employer]AN [employer] # SUBSCRIBER ID Primary: Secondary: MEDICARE [place]ICA[place] [id number] Admitting Diagnosis: 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] Order Date: Apr 09, 2025 Case Management Carton Packaging 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 Outpatient intravenous antibiotic therapy: Daptomycin 800 mg IV daily to be supplied by [facility] 2. Home health to perform [...] INFECTIOUS DISEASE Progress Note Won Dennis 1980 [id number] Date of Consult: 04/10/2025 Admission Date: 04/04/2025 [...] which prompted him to seek treatment at [facility]. He is known to [...] wound 05/09/25. HDS, on Heparin gtt. Currently [facility] has been asked to manage [...] Jr., MD, 20 mg at 04/09/25906 heparin 25323 units/250 mL (100 units/mL) in 0.45 % [...] Units Date/Time FL C Arm During Surgery [[id number]] Resulted: 04/07/252137 Updated: 04/07/252137 Narrative: This procedure was auto-finalized with no dictation required. MRI Tibia Fibula Right With & Without Contrast [[id number]] Collected: 04/07/25 0938 Updated: 04/07/25 1001 Narrative: [...] Chitra 04/07/2025 9:58 AM EDT Workstation ID: [id number] Impression: Recurrent Right BKA stump abscess/cellulitis- this [...] discussed his disposition with the pharmacist at [facility] today. I will sign off Outpatient orders: 1. Outpatient intravenous antibiotic therapy: Daptomycin 800 mg IV daily to be supplied by [facility] 2. Home health to perform weekly [...] Time: 04/10/251323 Signed Expand All Collapse All [facility] Medicine Services PROGRESS NOTE [...] Date/Time Wound Culture - Swab, Leg, Right [[id number]] (Abnormal) (Susceptibility) Collected: 04/07/252106 Lab Status: Final [...] Row Name 04/06/25 1143 Sit-Stand Transfer Sit-Stand [place] (Transfers) modified independence -LM Comment, (Sit-Stand Transfer) Pt stood from recliner. Not holding onto walker, pt able to pull his pants up while balancing on his one leg. 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 Therapies (Done) Topic: Physical Therapy (Done) Point: [...] Description Service Date Service Provider Modifiers Qty [phone] PT EVAL LOW COMPLEXITY 3 04/06/2025 Susan [...] mg Daily 04/05/2025 -- Route: Oral heparin 04114 units/250 mL (100 units/mL) in 0.45 % [...] -- Admin Instructions: Open Order & Select [facility] Electrolyte Replacement Protocol Algorithm to View Details [...] Dean MD April 21 vs April 22 [facility] [address], [address] [facility], [address] Please schedule at [phone] VONDA Garcia 04/11/25 08:32 EDT Cosigned by Sushil Dean Jr., MD at 04/19/2025 10:33 AM EDT Associated attestation - Sushil Dean Jr., MD - 04/19/2025 10:33 AM EDT I have reviewed this documentation and agree. * Rosario Hill APRN - 04/10/2025 1:24 PM EDT Images from the original note were not included. [facility] Medicine Services PROGRESS NOTE [...] Date/Time Wound Culture - Swab, Leg, Right [[id number]] (Abnormal) (Susceptibility) Collected: 04/07/252106 Lab Status: Final [...] mg Daily 04/05/2025 -- Route: Oral heparin 28320 units/250 mL (100 units/mL) in 0.45 % [...] -- Admin Instructions: Open Order & Select [facility] Electrolyte Replacement Protocol Algorithm to View Details [...] -- Admin Instructions: Open Order & Select [facility] Electrolyte Replacement Protocol Algorithm to View Details [...] -- Admin Instructions: Open Order & Select [facility] Electrolyte Replacement Protocol Algorithm to View Details [...] Dean MD April 21 vs April 22 [facility] [address], [address] [facility], [address] Please schedule at [phone] VONDA Garcia 04/10/25 09:01 EDT Cosigned by Sushil Dean Jr., MD at 04/19/2025 10:33 AM EDT Associated attestation - Sushil Dean Jr., MD - 04/19/2025 10:33 AM EDT I have reviewed this documentation and agree. * Carlton Mead MD - 04/10/2025 7:38 AM EDT Images from the original note were not included. INFECTIOUS DISEASE Progress Note Won Dennis 1980 [id number] Date of Consult: 04/10/2025 Admission Date: 04/04/2025 [...] which prompted him to seek treatment at [facility]. He is known to [...] wound 05/09/25. HDS, on Heparin gtt. Currently [facility] has been asked to manage [...] Jr., MD, 20 mg at 04/09/25906 heparin 95977 units/250 mL (100 units/mL) in 0.45 % [...] vancomycin 2750 mg/500 mL 0.9% NS IVPB ([facility]) Ordering Provider: Mario Crowley, DO 20 mg/kg [...] Units Date/Time FL C Arm During Surgery [[id number]] Resulted: 04/07/252137 Updated: 04/07/252137 Narrative: This procedure was auto-finalized with no dictation required. MRI Tibia Fibula Right With & Without Contrast [[id number]] Collected: 04/07/25 0938 Updated: 04/07/25 1001 Narrative: [...] Buenrostro 04/07/2025 9:58 AM EDT Workstation ID: [id number] Impression: Recurrent Right BKA stump abscess/cellulitis- this [...] discussed his disposition with the pharmacist at [facility] today. I will sign off Outpatient orders: 1. Outpatient intravenous antibiotic therapy: Daptomycin 800 mg IV daily to be supplied by [facility] 2. Home health to perform weekly [...] MD 04/10/2025 07:38 EDT * Yaya Hamiltonn, [facility] - 04/10/2025 7:17 AM EDT [...] from the original note were not included. [facility] Medicine Services PROGRESS NOTE [...] Date/Time Wound Culture - Swab, Leg, Right [[id number]] (Abnormal) Collected: 04/07/252106 Lab Status: Preliminary result [...] Jason DO Preeti 04/09/25 * Larisa Hamilton [facility] - 04/09/2025 11:36 AM EDT [...] mg Daily 04/05/2025 -- Route: Oral heparin 04379 units/250 mL (100 units/mL) in 0.45 % [...] -- Admin Instructions: Open Order & Select [facility] Electrolyte Replacement Protocol Algorithm to View Details [...] -- Admin Instructions: Open Order & Select [facility] Electrolyte Replacement Protocol Algorithm to View Details [...] -- Admin Instructions: Open Order & Select [facility] Electrolyte Replacement Protocol Algorithm to View Details [...] in 2 weeks for incision check, radiographs [facility] [address], [address] [facility], [address] Please schedule at [phone] VONDA Garcia 04/09/25 09:18 EDT Cosigned by Sushil Dean Jr., MD at 04/19/2025 10:33 AM EDT Associated attestation - Sushil Dean Jr., MD - 04/19/2025 10:33 AM EDT I have reviewed this documentation and agree. * Carlton Mead MD - 04/09/2025 8:25 AM EDT Images from the original note were not included. INFECTIOUS DISEASE Progress Note Won Dennis 1980 [id number] Date of Consult: 04/09/2025 Admission Date: 04/04/2025 [...] which prompted him to seek treatment at [facility]. He is known to [...] wound 05/09/25. HDS, on Heparin gtt. Currently [facility] has been asked to manage [...] Sushil Dean Jr., MD; Location: [facility]; Service: Orthopedics; Laterality: Right; PLACEMENT OF WOUND VAC Right 04/07/2025 Procedure: WOUND VACUUM ASSISTED CLOSURE; Surgeon: Sushil Dean Jr., MD; Location: [facility] OR; Service: Orthopedics; Laterality: Right; History reviewed. [...] MD, 20 mg at 04/08/25 0800 heparin 55195 units/250 mL (100 units/mL) in 0.45 % [...] Units Date/Time FL C Arm During Surgery [[id number]] Resulted: 04/07/252137 Updated: 04/07/252137 Narrative: This procedure was auto-finalized with no dictation required. MRI Tibia Fibula Right With & Without Contrast [[id number]] Collected: 04/07/2538 Updated: 04/07/25 1001 Narrative: MRI [...] Buenrostro 04/07/2025 9:58 AM EDT Workstation ID: [id number] Impression: Recurrent Right BKA stump abscess/cellulitis- this [...] mg IV daily to be supplied [facility] 2. Home health to perform [...] from the original note were not included. [facility] Medicine Services PROGRESS NOTE [...] Buenrostro 04/07/2025 9:58 AM EDT Workstation ID: [id number] I have personally reviewed the therapy plans: [...] Jason Álvarez DO 04/08/25 * Larisa Hamilton [facility] - 04/08/2025 11:48 AM EDT [...] -- Admin Instructions: Open Order & Select [facility] Electrolyte Replacement Protocol Algorithm to View Details [...] mg Daily 04/05/2025 -- Route: Oral heparin 41755 units/250 mL (100 units/mL) in 0.45 % [...] -- Admin Instructions: Open Order & Select [facility] Electrolyte Replacement Protocol Algorithm to View Details [...] -- Admin Instructions: Open Order & Select [facility] Electrolyte Replacement Protocol Algorithm to View Details [...] -- Admin Instructions: Open Order & Select [facility] Electrolyte Replacement Protocol Algorithm to View Details [...] INFECTIOUS DISEASE Progress Note Won Dennis 1980 [id number] Date of Consult: 04/08/2025 Admission Date: 04/04/2025 [...] which prompted him to seek treatment at [facility]. He is known to [...] wound 05/09/25. HDS, on Heparin gtt. Currently [facility] has been asked to manage [...] Sushil Dean Jr., MD; Location: [facility] OR; Service: Orthopedics; Laterality: Right; PLACEMENT OF WOUND VAC Right 04/07/2025 Procedure: WOUND VACUUM ASSISTED CLOSURE; Surgeon: Sushil Dean Jr., MD; Location: [facility] OR; Service: Orthopedics; Laterality: Right; History reviewed. [...] Jr., MD, 20 mg at 04/07/25950 heparin 04590 units/250 mL (100 units/mL) in 0.45 % [...] 10 mg, 10 mg, Oral, Nightly, Sushil eDan Jr., MD, 10mg at 04/06/252101 Pharmacy to [...] Units Date/Time FL C Arm During Surgery [[id number]] Resulted: 04/07/252137 Updated: 04/07/252137 Narrative: This procedure was auto-finalized with no dictation required. MRI Tibia Fibula Right With & Without Contrast [[id number]] Collected: 04/07/2538 Updated: 04/07/25 1001 Narrative: MRI [...] Buenrostro 04/07/2025 9:58 AM EDT Workstation ID: [id number] Impression: 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 (Treated by ID in [place] Dr. Harris). Dr. oTrres treated him with very prolonged intravenousantibiotic therapy [...] from the original note were not included. [facility] Medicine Services PROGRESS NOTE [...] Buenrostro 04/07/2025 9:58 AM EDT Workstation ID: [id number] I have personally reviewed the therapy plans: [...] Jason Álvarez DO 04/07/25 * Larisa Hamilton [facility] - 04/07/2025 11:56 AM EDT [...] INFECTIOUS DISEASE Progress Note Won Dennis 1980 [id number] Date of Consult: 04/07/2025 Admission Date: 04/04/2025 [...] which prompted him to seek treatment at [facility]. He is known to [...] wound 05/09/25. HDS, on Heparin gtt. Currently [facility] has been asked to manage [...] Application, 1 Application, Topical, Q12H, Ayah Valentin, ADDICTIONS COUNSELOR, 1 Application at 04/06/252101 DAPTOmycin (CUBICIN) 800 [...] Shepherd MD, 20 mg at 04/06/25899 heparin 73105 units/250 mL (100 units/mL) in 0.45 % NaCl infusion, 18 Units/kg/hr, Intravenous, Titrated, Cherri Beatty, [facility], Last Rate: 24.1 mL/hr at [...] , Not Applicable, Continuous PRN, Uan Perla, PharmD Phosphorus Replacement - Follow Nurse [...] With & Without Contrast - In process [[id number]] Resulted: 04/07/25828 Updated: 04/07/25828 This result has not been signed. Information might be incomplete. MRI Tibia Fibula Right With & Without Contrast [[id number]] Collected: 04/04/252256 Updated: 04/04/252302 Narrative: MRI TIBIA [...] represent a small area of phlegmonous change ([id number] image 10) measuring approximately 1.6 cm which [...] MD 04/04/2025 11:00 PM EDT Workstation ID: [id number] Impression: 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 (Treated by ID in [place] Dr. Harris). Dr. Torres treated him with [...] mg Daily 04/05/2025 -- Route: Oral heparin 91799 units/250 mL (100 units/mL) in 0.45 % [...] -- Admin Instructions: Open Order & Select [facility] Electrolyte Replacement Protocol Algorithm to View Details [...] -- Admin Instructions: Open Order & Select [facility] Electrolyte Replacement Protocol Algorithm to View Details [...] MD 04/07/25 06:07 EDT * Cherri Beatty [facility] - 04/06/2025 1:47 PM EDT [...] from the original note were not included. [facility] Medicine Services PROGRESS NOTE [...] MD 04/04/2025 11:00 PM EDT Workstation ID: [id number] I have personally reviewed the therapy plans: [...] mg Daily 04/05/2025 -- Route: Oral heparin 00300 units/250 mL (100 units/mL) in 0.45 % [...] -- Admin Instructions: Open Order & Select [facility] Electrolyte Replacement Protocol Algorithm to View Details [...] INFECTIOUS DISEASE follow up. Won Dennis 1980 [id number] Date of Consult: 04/06/2025 Admission Date: 04/04/2025 [...] which prompted him to seek treatment at [facility]. He is known to [...] wound 05/09/25. HDS, on Heparin gtt. Currently [facility] has been asked to manage [...] Application, 1 Application, Topical, Q12H, Ayah Valentin, ADDICTIONS COUNSELOR, 1 Application at 04/06/25 0859 DAPTOmycin (CUBICIN) [...] MD, 20 mg at 04/06/25 0900 heparin 18504 units/250 mL (100 units/mL) in 0.45 % NaCl infusion, 18 Units/kg/hr, Intravenous, Titrated, Cherri Beatty [facility], Last Rate: 24.1 mL/hr at [...] Tibia Fibula Right With & Without Contrast [[id number]] Collected: 04/04/252256 Updated: 04/04/252302 Narrative: MRI TIBIA [...] represent a small area of phlegmonous change (kuqnoo84 image 10) measuring approximately 1.6 cm which [...] MD 04/04/2025 11:00 PM EDT Workstation ID: [id number] Impression: 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 (Treated by ID in [place] Dr. Harris). Dr. Torres treated him with [...] MD 04/06/2025 16:00 EDT * Cherri Beatty, [facility] - 04/05/2025 3:01 PM EDT [...] from the original note were not included. [facility] Medicine Services PROGRESS NOTE [...] MD 04/04/2025 11:00 PM EDT Workstation ID: [id number] I have personally reviewed the therapy plans: [...] from the original note were not included. [facility] Medicine Services HISTORY AND [...] MD 04/04/2025 11:00 PM EDT Workstation ID: [id number] Assessment & Plan Assessment & Plan Won [...] 4FR PICC placed by Rhoda Bonner RN [facility], tip verified by 3CG see LDA. * Sushil Dean Jr., MD - 04/05/2025 8:07 AM EDTAssociated Order(s): IP CONSULT TO ORTHOPEDIC SURGERY [facility], [facility] [address] [address] Orthopedic Consult Patient: Won Dennis Date of Admission: 04/04/2025 4:10 PM Date of : 1980 Attending Physician: Jason Álvarez DO Consulting Physician: Sushil Dean Jr, MD Chief Complaint: 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 male admitted to [facility] with 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]. He [...] was evaluated in the emergency department in [place], was discharged with instructions for follow-up. He [...] tablet by mouth Daily. 04/03/2025 Morning Lactobacillus-Inulin ([facility] Opara) capsule Take 200 mg by mouth Daily. [...] MD 04/04/2025 11:00 PM EDT Workstation ID: [id number] Assessment: Right BKA infection 44-year-old male with [...] DISEASE CONSULT/INITIAL HOSPITAL VISIT Won Dennis 1980 [id number] Date of Consult: 04/05/2025 Admission Date: 04/04/2025 [...] which prompted him to seek treatment at [facility]. He is known to [...] wound 05/09/25. HDS, on Heparin gtt. Currently [facility] has been asked to manage [...] Leonora Shepherd MD, 40 mg at 04/04/25 4249 sennosides-docusate (PERICOLACE) 8.6-50 MG per tablet 2 [...] MD, 20 mg at 04/05/25 0916 heparin 61919 units/250 mL (100 units/mL) in 0.45 % [...] Tibia Fibula Right With & Without Contrast [[id number]] Collected: 04/04/252256 Updated: 04/04/252302 Narrative: MRI TIBIA [...] represent a small area of phlegmonous change ([id number] image 10) measuring approximately 1.6 cm which [...] MD 04/04/2025 11:00 PM EDT Workstation ID: [id number] Impression: 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 (Treated by ID in [place] Dr. Harris). Dr. Torres treated him with [...] Recent Flowsheet Documentation Taken 04/08/20252242 by Bob Rosenbreg RN Pain Management Interventions: pain medication given [...] Jr., MD - 04/08/2025 3:51 PM EDT [facility] OPERATIVE REPORT PATIENT NAME: Won Dennis DATE OF : 1980 PREOP DIAGNOSIS: Right Right below-knee amputation infection POSTOP DIAGNOSIS: Same. PROCEDURE: Right Right 58913: Secondary closure below-knee amputation SURGEON: Sushil Dean MD OPERATIVE TEAM: Ripsaw Grader: Susi Grullon RN Scrub Person: Mary Paredes Scrub Person Extra: Hortencia Troibio Other: Katt Gotti RN; Charis Neville RN ANESTHETIST: Anesthesiologist: Ulises Hoffman MD SOFTWARE BUSINESS ANALYST: Stan Casillas CRNA Student Nurse Pony Roll Finisher: Karol Albert SRNA ANESTHESIA: Choice ESTIMATED BLOOD [...] CULTURE (Canceled) Sushil Dean Jr., MD 04/08/25 3309 Description: RIGHT LEG DEEP WOUND FOR CULTURE [...] Jr., MD - 04/07/2025 9:03 PM EDT [facility] [address] [address] OPERATIVE REPORT PATIENT NAME: Won Dennis DATE OF : 1980 PREOP DIAGNOSIS: Right Right below knee amputation stump infection POSTOP DIAGNOSIS: Same. PROCEDURE: Right Right 52007: Incision and drainage of surgical site infection 67100: Debridement of skin, subcutaneous tissue, muscle 13251: Wound vacuum-assisted closure SURGEON: Sushil Dean MD OPERATIVE TEAM: Ripsaw Grader: Anum Sanchez RN Scrub Person: Hortencia Toribio; Gerald Ivey PILLAR WORKER: Anesthesiologist: Luci Alonso DO ANESTHESIA: General ESTIMATED [...] ago swellling of the area. seen at [facility] yesterday for CT and [...] this chart in the absence of a tassel snipper. No orders to display RADIOLOGY: [x] Radiologist's [...] 04/11/2025 1:30 PM EDT Continued Stay Note [place] Patient Name: Won Dennis Today's Date: 04/11/2025 Admit Date: 04/04/2025 Plan: Home with outpatient infusion. Discharge Plan Row Name 04/11/25 1155 Plan Plan Home with outpatient infusion. Final Discharge Disposition Code 01 - home or self-care Final Note Patient discharging today. He is discharging home with outpatient infusion at [facility]. He has an appointment with [facility] at 8:00 am tomorrow. They will do PICC line dressing changes. DEBRA has spoke with Dena at [facility] today multiple times to get setup due [...] to get IV ABX at home with [facility]; however, Medicaid lapsed on 04/08. DEBRA was unaware until this morning that Medicaid has lapsed. Patient explained that he has Medicare A and B. CM spoke with KELLEE and given themhis Medicare number [id number], she sent it to Admission. DEBRA spoke with Kerri, with [facility], and explained that he had Medicare A and B. However, it will not cover home infusion. It will be $64.00 a day out of packet. Patients can go to the Infusion center at [facility], and it will cover the cost as an outpatient. He will need to go there every day for infusion. They will be able to do the patients' PICC line dressing changes and lab work. CM called Dena [facility] Outpatient infusion center they can accept patient and start him. He is known for their facility. The Facility will need to run it through his insurance first. CM faxed the orders over to [facility] at [phone]. CM will follow up with them tomorrow at [facility] to make sure they received the [...] with patient at bedside today[facility] Patient getting PICC line [...] note were not included. Discharge Planning Assessment [place] Patient Name: Won Dennis Today's Date: 04/07/2025 [...] family Patient/Family Anticipated Services at Transition case operatorfacility operations manager Anticipated family or friend will provide Discharge Needs Assessment Equipment Currently Used at Home glucometer;shower chair;pulse ox;bp cuff;prosthesis;crutches Equipment Needed After Discharge none Discharge Plan Row Name 04/07/25 1144 Plan Plan Home Patient/Family in Agreement with Plan yes Plan Comments CM spoke with patient at bedside today. Patient lives with and his 5 kids in [facility]. 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 He has walker, cane, shower chair, and crutches. He requested a wheelchair for home. CM will order wheelchair through [employer]. He is not current with home health services. PCP is Dr. Jordan. Insurance is [facility] Medicaid [place]. Patient discharge plan is home with priavte transport. CM will follow for any discharge needs. Final Discharge Disposition Code 01 - home or self-care Continued Care and Services - Admitted Since 04/04/2025 No active coordination exists. Demographic Summary Row Name 04/07/25 1143 General Information Arrived From hospital Preferred Language [place] Functional Status Row Name 04/07/25 1143 Functional [...] 3:4 0 PM EDT Right BKA infection ME SEC ABDOMINAL WALL SUTURE EVISCERATION/DEHSN 04/08/2025 3:20 [...] CBC Auto Differential (04/11/2025 3:40 AM EDT) [facility] WBC 7.87 3.40 - 10.80 10*3/mm3 [...] 140 - 450 10*3/mm3 04/11/2025 4:02 AM [facility] Neutrophil % 59.5 42.7 - 76.0 % 04/11/2025 4:02 AM [facility] Lymphocyte % 26.3 19.6 - 45.3 % 04/11/2025 4:02 AM [facility] Monocyte % 9.3 5.0 - 12.0 % 04/11/2025 4:02 AM [facility] Eosinophil % 4.1 0.3 - 6.2 % 04/11/2025 4:02 AM [facility] Basophil % 0.4 0.0 - 1.5 % 04/11/2025 4:02 AM [facility] Immature Grans % 0.4 0.0 - 0.5 % 04/11/2025 4:02 AM [facility] Neutrophils, Absolute 4.69 1.70 - 7.00 10*3/mm3 04/11/2025 4:02 AM [facility] Lymphocytes, Absolute 2.07 0.70 - 3.10 10*3/mm3 04/11/2025 4:02 AM [facility] Monocytes, Absolute 0.73 0.10 - 0.90 10*3/mm3 04/11/2025 4:02 AM [facility] Eosinophils, Absolute 0.32 0.00 - 0.40 10*3/mm3 04/11/2025 4:02 AM [facility] Basophils, Absolute 0.03 0.00 - 0.20 10*3/mm3 04/11/2025 4:02 AM [facility] Immature Grans, Absolute 0.03 0.00 - 0.05 10*3/mm3 04/11/2025 4:02 AM [facility] nRBC 0.0 0.0 - 0.2 /100 WBC 04/11/2025 4:02 AM [facility] Blood Venipuncture / Unknown 04/11/2025 3:40 AM EDT 04/11/2025 3:59 AM EDT us Sushil Dean Jr., MD LAB BLOOD ORDERABLES Fi nal Result [facility]
[address] [place] [address], * (ABNORMAL) Comprehensive Metabolic Panel (04/11/2025 3:40 [...] 3:40 AM EDT 04/11/2025 3:56 AM EDT [facility] - 04/11/2025 4:19 AM EDT [...] ORDERABLES Final Result [facility]
[address] [place] [address], * (ABNORMAL) CBC Auto Differential (04/10/2025 3:46 AM EDT) [facility] WBC 9.60 3.40 - 10.80 10*3/mm3 04/10/2025 3:56 AM EDT [facility] RBC 4.67 4.14 - 5.80 10*6/mm3 04/10/2025 3:56 AM [facility] Hemoglobin 12.9(L) 13.0 - 17.7 g/dL 04/10/2025 3:56 AM EDT [facility] Hematocrit 40.1 37.5 - 51.0 % 04/10/2025 3:56 AM [facility] MCV 85.9 79.0 - 97.0 fL 04/10/2025 3:56 AM [facility] MCH 27.6 26.6 - 33.0 pg 04/10/2025 3:56 AM [facility] MCHC 32.2 31.5 - 35.7 g/dL 04/10/2025 3:56 AM [facility] RDW 12.9 12.3 - 15.4 % 04/10/2025 3:56 AM [facility] RDW-SD 40.5 37.0 - 54.0 fl 04/10/2025 3:56 AM [facility] MPV 9.5 6.0 - 12.0 fL 04/10/2025 3:56 AM [facility] Platelets 227 140 - 450 10*3/mm3 04/10/2025 3:56 AM EDT [facility] Neutrophil % 59.1 42.7 - 76.0 % 04/10/2025 3:56 AM [facility] Lymphocyte % 29.0 19.6 - 45.3 % 04/10/2025 3:56 AM [facility] Monocyte % 8.1 5.0 - 12.0 % 04/10/2025 3:56 AM [facility] Eosinophil % 3.2 0.3 - 6.2 [...] Final Resul t [facility]
[address] [place] [address], * (ABNORMAL) Basic Metabolic Panel (04/10/2025 3:46 AM EDT) [facility] Glucose 125(H) 65 - 99 mg/dL 04/10/2025 4:20 AM EDT [facility] BUN 15.9 6.0 - 20.0 mg/dL 04/10/2025 4:20 AM T [facility] Creatinine 0.77 0.76 - 1.27 mg/dL 04/10/2025 4:20 AM T [facility] Sodium 137 136 - 145 mmol/L 04/10/2025 4:20 AM [facility] Potassium 3.9 3.5 - 5.2 mmol/L 04/10/2025 4:20 AM EDT [facility] Chloride 102 98 - 107 mmol/L 04/10/2025 4:20 AM EDT [facility] CO2 26.9 22.0 - 29.0 mmol/L 04/10/2025 4:20 AM [facility] Calcium 7.9(L) 8.6 - 10.5 mg/dL 04/10/2025 4:20 AM [facility] BUN/Creatinine Ratio 20.6 7.0 - 25.0 04/10/2025 4:20 AM [facility] Anion Gap 8.1 5.0 - 15.0 mmol/L 04/10/2025 4:20 AM [facility] eGFR 113.2 >60.0 mL/min/1.7 3 04/10/2025 4:20 AM [facility] Blood Venipuncture / Unknown 04/10/2025 3:46 AM EDT 04/10/2025 3:52 AM EDT [facility] - 04/10/2025 4:20 AM EDT [...] Final Resul t [facility]
[address] [place] [address], * Heparin Anti-Xa (04/10/2025 3:46 AM EDT) Heparin Anti-Xa (UFH) 0.35 0.30 - 0.70 IU/ml 04/10/2025 4:23 AM EDT [facility] Blood Venipuncture / Unknown 04/10/2025 3:46 AM EDT 04/10/2025 3:53 AM EDT [facility] LAB BLOOD ORDERABLES Final R esult Performing Organization Address City/[facility]/ZIP Co de Phone Number [facility]
[address] [place] [address], * Heparin Anti-Xa (04/09/2025 10:05 AM EDT) Heparin Anti-Xa (UFH) 0.36 0.30 - 0.70 IU/ml 04/09/2025 11:12 AM EDT [facility] Blood Venipuncture / Unknown 04/09/2025 10:05 AM EDT 04/09/2025 10:[address] [facility] LAB BLOOD ORDERABLES Final R esult [facility]
[address] [place] [address], * (ABNORMAL) CBC Auto Differential (04/09/2025 4:18 AM EDT) WBC 11.00(H) 3.40 - 10.80 10*3/mm3 04/09/2025 4:50 AM [facility] RBC 4.70 4.14 - 5.80 [...] 26.6 - 33.0 pg 04/09/2025 4:50 AM [facility] MCHC 32.2 31.5 - 35.7 g/dL 04/09/2025 4:50 AM [facility] RDW 12.8 12.3 - 15.4 % 04/09/2025 4:50 AM [facility] RDW-SD 39.9 37.0 - 54.0 fl 04/09/2025 4:50 AM [facility] MPV 10.0 6.0 - 12.0 fL 04/09/2025 4:50 AM [facility] Platelets 211 140 - 450 10*3/mm3 04/09/2025 4:50 AM [facility] Neutrophil % 74.8 42.7 - 76.0 % 04/09/2025 4:50 AM EDT [facility] Lymphocyte % 15.4(L) 19.6 - 45.3 % 04/09/2025 4:50 AM EDT [facility] Monocyte % 8.5 5.0 - 12.0 % 04/09/2025 4:50 AM EDT [facility] Eosinophil % 0.6 0.3 - 6.2 % 04/09/2025 4:50 AM [facility] Basophil % 0.4 0.0 - 1.5 [...] Fi nal Result [facility]
[address] [place] [address], * Heparin Anti-Xa (04/09/2025 4:18 AM EDT) Heparin Anti-Xa (UFH) 0.41 0.30 - 0.70 IU/ml 04/09/2025 4:53 AM EDT [facility] Blood Venipuncture / Unknown 04/09/2025 4:18 AM EDT 04/09/2025 4:31 AM EDT Una Wheeleroy PharmD LAB BLOOD ORDERABLES Final R esult [facility]
[address] [place] [address], * (ABNORMAL) Basic Metabolic Panel (04/09/2025 4:18 AM EDT) Pathologist [facility] Glucose 147(H) 65 - 99 mg/dL 04/09/2025 [...] ORDERABLES Fi nal Result Performing Organization Address [facility] Co de Phone Number [facility]
[address] [place] [address], * Wound Culture - Swab, Leg, Right (04/08/2025 3:40 PM EDT) Wound Culture No growth at 3 days ALIZA 04/11/2025 10:40 AM EDT [facility] Gram Stain Few (2+) WBCs seen 04/11/2025 10:40 AM EDT [facility] Gram Stain No organisms seen 04/11/2025 10:40 AM EDT [facility] Swab Structure of right lower limb / Unknown 04/08/2025 3:40 PM EDT 04/08/2025 8:05 PM EDT Sushil Dean Jr., MD MICROBIOLOGY - GENERAL ORDERABLES Final Result Performing Organization Address City/[facility]/ZIP Co de Phone Number [facility]
[address] [place] [phone], [facility]
[address] [place] [address], * Anaerobic Culture - Swab, Leg, Right (04/08/2025 3:40 PM EDT) Pathologist [facility] Anaerobic Culture No anaerobes isolated at 5 days ALIZA 04/13/2025 7:24 AM EDT [facility] Swab Structure of right lower limb / Unknown 04/08/2025 3:40 PM EDT 04/08/2025 8:05 PM EDT Sushil Dean Jr., MD MICROBIOLOGY - GENERAL ORDERABLES Final Result Performing Organization Address City/[facility] Co de Phone Number [facility]
[address] [place] [address], [place] [phone] * Scan Slide (04/08/2025 8:41 AM EDT) Pathologist [facility] RBC Morphology Normal Normal 04/08/2025 11:02 AM [...] ORDERABLES Final R esult Performing Organization Address City/[facility]/ZIP Co de Phone Number [facility]
[address] [place] [address], [place] [phone] * (ABNORMAL) CBC Auto Differential (04/08/2025 8:41 AM EDT) Pathologist [facility] WBC 10.07 3.40 - 10.80 10*3/mm3 04/08/2025 11:02 AM EDT [facility] RBC 5.01 4.14 - 5.80 10*6/mm3 04/08/2025 11:02 AM EDT [facility] Hemoglobin 14.0 13.0 - 17.7 g/dL 04/08/2025 11:02 AM [facility] Hematocrit 42.7 37.5 - 51.0 % 04/08/2025 11:02 AM [facility] MCV 85.2 79.0 - 97.0 fL 04/08/2025 11:02 AM [facility] MCH 27.9 26.6 - 33.0 pg 04/08/2025 11:02 AM [facility] MCHC 32.8 31.5 - 35.7 g/dL 04/08/2025 11:02 AM [facility] RDW 12.6 12.3 - 15.4 % 04/08/2025 11:02 AM [facility] RDW-SD 38.9 37.0 - 54.0 fl 04/08/2025 11:02 AM [facility] MPV 11.0 6.0 - 12.0 fL 04/08/2025 11:02 AM [facility] Platelets 118(L) 140 - 450 10*3/mm3 04/08/2025 11:02 AM [facility] Neutrophil % 85.1(H) 42.7 - 76.0 % 04/08/2025 11:02 AM [facility] Lymphocyte % 9.3(L) 19.6 - 45.3 % 04/08/2025 11:02 AM [facility] Monocyte % 4.6(L) 5.0 - 12.0 % 04/08/2025 11:02 AM [facility] Eosinophil % 0.3 0.3 - 6.2 % 04/08/2025 11:02 AM [facility] Basophil % 0.2 0.0 - 1.5 % 04/08/2025 11:02 AM [facility] Immature Grans % 0.5 0.0 - 0.5 % 04/08/2025 11:02 AM [facility] Neutrophils, Absolute 8.57(H) 1.70 - [...] Final R esult [facility]
[address] [place] [address], * (ABNORMAL) Basic Metabolic Panel (04/08/2025 8:41 [...] 8:41 AM EDT 04/08/2025 9:09 AM EDT [facility] - 04/08/2025 9:51 AM EDT [...] ORDERABLES nal Result [facility]
[address] [place] [address], * Heparin Anti-Xa (04/08/2025 8:41 AM EDT) Heparin Anti-Xa (UFH) 0.33 0.30 - 0.70 IU/ml 04/08/2025 9:40 AM EDT [facility] Blood Venipuncture / Unknown 04/08/2025 8:41 AM EDT 04/08/2025 9:10 AM EDT Sushil Dean Jr., MD LAB BLOOD ORDERABLES Fi nal Result [facility]
[address] [place] [address], * FL C Arm During Surgery (04/07/2025 9:32 PM EDT) Narrative SYSTEMGENERATED, DOCUMENTATION - 04/07/2025 9:38 PM EDT This procedure was auto-finalized with no dictation required. Sushil Dean Jr., MD IMG FLUOROSCOPY ORDERAB LES Final Result * Wound Culture - Swab, Leg, Right (04/07/2025 9:14 PM EDT) Wound Culture No growth at 3 days ALIZA 04/11/2025 10:40 AM EDT [facility] Gram Stain Occasional WBCs seen 04/11/2025 10:40 AM EDT [facility] Gram Stain No organisms seen 04/11/2025 10:40 AM EDT [facility] Swab Structure of right lower limb / Unknown Collection / Unknown 04/07/2025 9:14 PM EDT 04/08/2025 4:36 AM EDT Sushil Dean Jr., MD MICROBIOLOGY - GENERAL ORDERABLES Final Result [facility]
[address] [place] [address], [facility]
[address] [place] [address], * Anaerobic Culture - Swab, Leg, Right (04/07/2025 9:14 PM EDT) Anaerobic Culture No anaerobes isolated at 5 days ALIZA 04/13/2025 7:21 AM EDT [facility] Swab Structure of right lower limb / Unknown Collection / Unknown 04/07/2025 9:14 PM EDT 04/08/2025 4:36 AM EDT Sushil Dean Jr., MD MICROBIOLOGY - GENERAL ORDERABLES Final Result Performing Organization Address City/[facility]/ZIP Co de Phone Number [facility]
[address] [place] [address], * Anaerobic Culture - Tissue, Leg (04/07/2025 9:13 PM EDT) Anaerobic Culture No anaerobes isolated at 5 days ALIZA 04/13/2025 7:21 AM EDT [facility] Tissue Lower limb structure / Unknown Collection / Unknown 04/07/2025 9:13 PM EDT 04/08/2025 4:54 AM EDT Jason Álvarez DO MICROBIOLOGY - GENERAL ORDERABLE S Final Result [facility]
[address] [place] [address], * Tissue / Bone Culture - Tissue, Leg, Right (04/07/2025 9:13 PM EDT) Tissue Culture No growth at 3 days ALIZA 04/11/2025 10:36 AM EDT [facility] Gram Stain Rare (1+) WBCs seen 04/11/2025 10:36 AM EDT [facility] Gram Stain No organisms seen 04/11/2025 10:36 AM EDT [facility] Tissue Structure of right lower limb / Unknown 04/07/2025 9:13 PM EDT 04/08/2025 4:54 AM EDT Sushil Dean Jr., MD MICROBIOLOGY - GENERAL ORDERABLES Final Result Performing Organization Address City/[facility]/ZIP Co de Phone Number [facility]
[address] [place] [address], [place] [phone] [facility]
[address] [place] [address], [place] [phone] * (ABNORMAL) Wound Culture - Swab, Leg, Right (04/07/2025 9:07 PM EDT) Wound Culture Light growth (2+) Staphylococcus aureus, MRSA(A) ALIZA 04/10/2025 10:38 AM EDT [facility] Comment: Methicillin resistant Staphylococcus aureus, [...] MD MICROBIOLOGY - GENERAL ORDERABLES Final Result [facility]
[address] [place] [address], [facility]
[address] [place] [address], * Anaerobic Culture - Swab, Leg, Right (04/07/2025 9:07 PM EDT) Pathologist [facility] Anaerobic Culture No anaerobes isolated at 5 days ALIZA 04/13/2025 7:21 AM EDT [facility] Swab Structure of right lower limb / Unknown Collection / Unknown 04/07/2025 9:07 PM EDT 04/08/2025 4:36 AM EDT Sushil Dean Jr., MD MICROBIOLOGY - GENERAL ORDERABLES Final Result Performing Organization Address [facility] Co de Phone Number [facility]
[address] [place] [address], * Heparin Anti-Xa (04/07/2025 9:10 AM EDT) [facility] Heparin Anti-Xa (UFH) 0.30 0.30 - 0.70 IU/ml 04/07/2025 10:12 AM EDT [facility] Blood Venipuncture / Unknown 04/07/2025 9:10 AM EDT 04/07/2025 9:38 AM EDT Una LundbergD LAB BLOOD ORDERABLES Final R esult Performing Organization Address City/[facility]/ZIP Co de Phone Number [facility]
[address] [place] [address], * (ABNORMAL) CBC Auto Differential (04/07/2025 9:10 AM EDT) Pathologist [facility] WBC 8.63 3.40 - 10.80 10*3/mm3 04/07/2025 9:50 AM EDT [facility] RBC 5.23 4.14 - 5.80 10*6/mm3 04/07/2025 9:50 AM [facility] Hemoglobin 14.7 13.0 - 17.7 g/dL 04/07/2025 9:50 AM [facility] Hematocrit 44.8 37.5 - 51.0 % 04/07/2025 9:50 AM [facility] MCV 85.7 79.0 - 97.0 fL 04/07/2025 9:50 AM EDT [facility] MCH 28.1 26.6 - 33.0 pg 04/07/2025 9:50 AM [facility] MCHC 32.8 31.5 - 35.7 g/dL 04/07/2025 9:50 AM [facility] RDW 12.8 12.3 - 15.4 % 04/07/2025 9:50 AM [facility] RDW-SD 39.9 37.0 - 54.0 fl 04/07/2025 9:50 AM [facility] MPV 10.8 6.0 - 12.0 fL 04/07/2025 9:50 AM [facility] Platelets 149 140 - 450 10*3/mm3 04/07/2025 9:50 AM [facility] Neutrophil % 66.7 42.7 - 76.0 % 04/07/2025 9:50 AM [facility] Lymphocyte % 20.5 19.6 - 45.3 % 04/07/2025 9:50 AM EDT [facility] Monocyte % 9.8 5.0 - 12.0 % 04/07/2025 9:50 AM [facility] Eosinophil % 2.1 0.3 - 6.2 % 04/07/2025 9:50 AM [facility] Basophil % 0.3 0.0 - 1.5 % 04/07/2025 9:50 AM [facility] Immature Grans % 0.6(H) 0.0 - [...] Final Resul t [facility]
[address] [place] [address], * (ABNORMAL) Basic Metabolic Panel (04/07/2025 9:10 [...] Final Resul t [facility]
[address] [place] [address], * MRI Tibia Fibula Right With & [...] [place] 04/07/2025 9:58 AM EDT Workstation ID: [id number] Narrative 04/07/2025 9:58 AM EDT MRI TIBIA [...] [place] 04/07/2025 9:58 AM EDT Workstation ID: [id number] us Sushil Dean Jr., MD [facility] [place] ORDERABLES Mary Beth l Result * Heparin Anti-Xa (04/07/2025 1:42 AM EDT) Heparin Anti-Xa (UFH) 0.38 0.30 - 0.70 IU/ml 04/07/2025 2:14 AM EDT [facility] Blood Venipuncture / Unknown 04/07/2025 1:42 AM EDT 04/07/2025 1:54 AM EDT Chelsie Navarretesapna [facility] LAB BLOOD ORDERABLES Final R esult Performing Organization Address City/[facility]/ZIP Co de Phone Number [facility]
[address] [place] [address], * Heparin Anti-Xa (04/06/2025 7:16 PM EDT) Pathologist [facility] Heparin Anti-Xa (UFH) 0.33 0.30 - 0.70 IU/ml 04/06/2025 7:50 PM EDT [facility] Blood Venipuncture / Unknown 04/06/2025 7:16 PM EDT 04/06/2025 7:35 PM EDT Cherri Beatty [facility] LAB BLOOD ORDERABLES Final Res ult Performing Organization Address City/[facility] Co de Phone Number [facility]
[address] [place] [address], * Potassium (04/06/2025 7:16 PM EDT) Pathologist [facility] Potassium 4.0 3.5 - 5.2 mmol/L 04/06/2025 7:53 PM EDT [facility] Blood Venipuncture / Unknown 04/06/2025 7:16 PM EDT 04/06/2025 7:35 PM EDT Jason Álvarez DO LAB BLOOD ORDERABLES Final Resul t Performing Organization Address City/[facility]/ZIP Co de Phone Number [facility]
[address] [place] [address], * (ABNORMAL) Heparin Anti-Xa (04/06/2025 12:36 PM EDT) Heparin Anti-Xa (UFH) 0.24(L) 0.30 - 0.70 IU/ml 04/06/2025 1:23 PM EDT [facility] Blood Venipuncture / Unknown 04/06/2025 12:36 PM EDT 04/06/2025 1:07 PM EDT Una LundbergD LAB BLOOD ORDERABLES Final R esult [facility]
[address] [place] [address], * (ABNORMAL) Heparin Anti-Xa (04/06/2025 3:42 AM EDT) [facility] (UFH) 0.25(L) 0.30 - 0.70 IU/ml 04/06/2025 5:30 AM EDT [facility] Blood Venipuncture / Unknown 04/06/2025 3:42 AM EDT 04/06/2025 4:59 AM EDT Chelsie Turpin [facility] LAB BLOOD ORDERABLES Final R esult [facility]
[address] [place] [address], * (ABNORMAL) Basic Metabolic Panel (04/06/2025 3:42 AM EDT) [facility] Glucose 94 65 - 99 mg/dL [...] Final Resul t [facility]
[address] [place] [address], * (ABNORMAL) CBC Auto Differential (04/06/2025 3:41 [...] Final Resul t [facility]
[address] [place] [address], * Heparin Anti-Xa (04/05/2025 8:43 PM EDT) Heparin Anti-Xa (UFH) 0.38 0.30 - 0.70 IU/ml 04/05/2025 9:09 PM EDT [facility] Blood Venipuncture / Unknown 04/05/2025 8:43 PM EDT 04/05/2025 8:55 PM EDT Cherri Beatty [facility] LAB BLOOD ORDERABLES Final Res ult Performing Organization Address [facility] Co de Phone Number [facility]
[address] [place] [address], * CK (04/05/2025 12:15 PM EDT) Creatine Kinase 140 20 - 200 U/L 04/05/2025 1:31 PM EDT [facility] Blood Venipuncture / Unknown 04/05/2025 12:15 PM EDT 04/05/2025 1:03 PM EDT Carlton Mead MD LAB BLOOD ORDERABLES Final R esult Performing Organization Address [facility] Co de Phone Number [facility]
[address] [place] [address], [place] [phone] * (ABNORMAL) Heparin Anti-Xa (04/05/2025 12:15 PM EDT) Heparin Anti-Xa (UFH) 0.17(L) 0.30 - 0.70 IU/ml 04/05/2025 1:21 PM EDT [facility] Blood Venipuncture / Unknown 04/05/2025 12:15 PM EDT 04/05/2025 1:04 PM EDT Una LundbergD LAB BLOOD ORDERABLES Final R esult Performing Organization Address City/[facility]/ZIP Co de Phone Number [facility]
[address] [place] [address], * (ABNORMAL) aPTT (04/05/2025 3:54 AM EDT) [facility] PTT 35.3(L) 60.0 - 90.0 seconds 04/05/2025 4:31 AM EDT [facility] Blood Venipuncture / Unknown 04/05/2025 3:54 AM EDT 04/05/2025 4:15 AM EDT Narrative [facility] - 04/05/2025 4:31 AM EDT PTT = The equivalent PTT values for the therapeutic range of heparin levels at 0.3 to 0.5 U/ml are 60 to 70 seconds. Una Perla [employer] LAB BLOOD ORDERABLES Final R esult Performing Organization Address [facility] Co de Phone Number [facility]
[address] [place] [address], * Heparin Anti-Xa (04/05/2025 3:54 AM EDT) [facility] Heparin Anti-Xa ([facility]FH) 0.30 0.30 - 0.70 IU/ml 04/05/2025 4:32 AM EDT [facility] Blood Venipuncture / Unknown 04/05/2025 3:54 AM EDT 04/05/2025 4:15 AM EDT [facility] LAB BLOOD ORDERABLES Final R esult Performing Organization Address City/[facility] Co de Phone Number [facility]
[address] [place] [address], * (ABNORMAL) CBC Auto Differential (04/05/2025 3:54 AM EDT) [facility] WBC 11.18(H) 3.40 - 10.80 10*3/mm3 [...] 26.6 - 33.0 pg 04/05/2025 4:20 AM [facility] MCHC 32.8 31.5 - 35.7 g/dL 04/05/2025 4:20 AM [facility] RDW 12.9 12.3 - 15.4 % 04/05/2025 4:20 AM [facility] RDW-SD 39.7 37.0 - 54.0 fl 04/05/2025 4:20 AM [facility] MPV 10.2 6.0 - 12.0 fL 04/05/2025 4:20 AM [facility] Platelets 160 140 - 450 10*3/mm3 04/05/2025 4:20 AM [facility] Neutrophil % 73.5 42.7 - 76.0 % 04/05/2025 4:20 AM [facility] Lymphocyte % 14.0(L) 19.6 - 45.3 % 04/05/2025 4:20 AM EDT [facility] Monocyte % 11.0 5.0 - 12.0 % 04/05/2025 4:20 AM [facility] Eosinophil % 0.8 0.3 - 6.2 % 04/05/2025 4:20 AM [facility] Basophil % 0.3 0.0 - 1.5 [...] Final R esult [facility]
[address] [place] [address], * (ABNORMAL) Basic Metabolic Panel (04/05/2025 3:54 AM EDT) [facility] Signature Glucose 152(H) 65 - 99 [...] 8.6 - 10.5 mg/dL 04/05/2025 4:40 AM [facility] BUN/Creatinine Ratio 18.8 7.0 - 25.0 04/05/2025 4:40 AM T [facility] Anion Gap 9.0 5.0 - 15.0 mmol/L 04/05/2025 4:40 AM [facility] eGFR 105.2 >60.0 mL/min/1.7 3 04/05/2025 4:40 AM [facility] Blood Venipuncture / Unknown 04/05/2025 3:54 AM EDT 04/05/2025 4:15 AM EDT [facility] - 04/05/2025 4:40 AM EDT [...] ORDERABLES Final Re sult Performing Organization Address [facility] Co de Phone Number [facility]
[address] [place] [address], * (ABNORMAL) aPTT (04/05/2025 12:18 AM EDT) [...] ORDERABLES Final R esult Performing Organization Address [facility] Co de Phone Number [facility]
[address] [place] [address], [place] [phone] * (ABNORMAL) Protime-INR (04/05/2025 12:18 AM EDT) Protime 15.9(H) 12.2 - 15.3 Seconds 04/05/2025 12:53 AM EDT [facility] INR 1.19(H) 0.89 - 1.12 04/05/2025 12:53 AM EDT [facility] Blood Venipuncture / Unknown 04/05/2025 12:18 AM EDT 04/05/2025 12:37 AM EDT Una Perla PharmD LAB BLOOD ORDERABLES Final R esult Performing Organization Address City/[facility] Co de Phone Number [facility]
[address] [place] [address], [place] [phone] * Heparin Anti-Xa (04/05/2025 12:18 AM EDT) Heparin Anti-Xa (UFH) 0.39 0.30 - 0.70 IU/ml 04/05/2025 12:54 AM EDT [facility] Blood Venipuncture / Unknown 04/05/2025 12:18 AM EDT 04/05/2025 12:37 AM EDT Una Perla PharmD LAB BLOOD ORDERABLES Final R esult [facility]
[address] [place] [address], * MRI Tibia Fibula Right With & [...] MD 04/04/2025 11:00 PM EDT Workstation ID: [id number] Narrative 04/04/2025 11:00 PM EDT MRI TIBIA [...] MD 04/04/2025 11:00 PM EDT Workstation ID: [id number] us Leonora Shepherd MD IMG MRI ORDERABLES Final Resu lt * POC Creatinine (04/04/2025 2:49 PM EDT) [facility] Creatinine 1.10 0.60 - 1.30 mg/dL 04/07/2025 7:14 PM EDT [facility] Comment:Serial Number: [id number] 7Operator: [id number] Venous Blood 04/04/2025 2:49 PM EDT 04/07/2025 7:14 PM EDT Jason Ávlarez DO POINT OF CARE TEST ORDERABLES Fi nal Result [facility]
[address] [place] [address], * (ABNORMAL) CBC Auto Differential (04/04/2025 2:47 PM EDT) [facility] WBC 12.72(H) 3.40 - 10.80 10*3/mm3 [...] 12.3 - 15.4 % 04/04/2025 2:56 PM [facility] RDW-SD 40.3 37.0 - 54.0 fl [...] 19.6 - 45.3 % 04/04/2025 2:56 PM [facility] Monocyte % 11.2 5.0 - 12.0 % 04/04/2025 2:56 PM [facility] Eosinophil % 0.4 0.3 - 6.2 % 04/04/2025 2:56 PM EDT [facility] Basophil % 0.2 0.0 - 1.5 % 04/04/2025 2:56 PM [facility] Immature Grans % 0.2 0.0 - 0.5 % 04/04/2025 2:56 PM [facility] Neutrophils, Absolute 9.52(H) 1.70 - 7.00 10*3/mm3 04/04/2025 2:56 PM [facility] Lymphocytes, Absolute 1.66 0.70 - 3.10 10*3/mm3 04/04/2025 2:56 PM EDT [facility] Monocytes, Absolute 1.43(H) 0.10 - 0.90 10*3/mm3 04/04/2025 2:56 PM EDT [facility] Eosinophils, Absolute 0.05 0.00 - 0.40 10*3/mm3 04/04/2025 2:56 PM [facility] Basophils, Absolute 0.03 0.00 - 0.20 10*3/mm3 04/04/2025 2:56 PM EDT [facility] Immature Grans, Absolute 0.03 0.00 - 0.05 10*3/mm3 04/04/2025 2:56 PM EDT [facility] nRBC 0.0 0.0 - 0.2 /100 WBC 04/04/2025 2:56 PM EDT [facility] Blood Venipuncture / Unknown 04/04/2025 2:47 PM EDT 04/04/2025 2:52 PM EDT Mario Ortiz [facility] LAB BLOOD ORDERABLES Fin al Result Performing Organization Address City/[facility]/ZIP Co de Phone Number [facility]
[address] [place] [address], * (ABNORMAL) C-reactive Protein (04/04/2025 2:47 PM EDT) C-Reactive Protein 8.57(H) 0.00 - 0.50 mg/dL 04/04/2025 3:26 PM EDT [facility] Blood Venipuncture / Unknown 04/04/2025 2:47 PM EDT 04/04/2025 2:52 PM EDT Mario Ortiz [facility] LAB BLOOD ORDERABLES Fin al Result Performing Organization Address [facility] de Phone Number [facility]
[address] [place] [address], * (ABNORMAL) Sedimentation Rate (04/04/2025 2:47 PM EDT) Sed Rate 51(H) 0 - 15 mm/hr 04/04/2025 3:06 PM EDT [facility] Blood Venipuncture / Unknown 04/04/2025 2:47 PM EDT 04/04/2025 2:52 PM EDT [facility] BLOOD ORDERABLES Fin al Result Performing Organization Address City/[facility]/ZIP Co de Phone Number [facility]
[address] [place] [address], * Comprehensive Metabolic Panel (04/04/2025 2:47 PM EDT) [facility] Glucose 90 65 - 99 mg/dL [...] Fin al Result [facility]
[address] [place] [address], documented in this encounter Visit Diagnoses Diagnosis [...] 04/05/2025 3:33 PM EDT 2,000 Units heparin [id number] units/250 mL (100 units/mL) in 0.45 % [...] BPA Driven Protocol [employer] [facility] Electrolyte Replacement Protocol Algorithm to View Details [...] BPA Driven Protocol [employer] [facility] Electrolyte Replacement Protocol Algorithm to View Details [...] disposal. 0831 (Given - Provider: Amber Salazar, CENTRAL OFFICE SUPERVISOR)194 (Given - Provider: Anahy Marcelino, CENTRAL OFFICE SUPERVISOR)2129 (Canceled Entry - Provider: Anahy Marcelino RRT [...] Continuous Medication Order 04/09/2025 04/10/2025 04/11/2025 heparin [id number] units/250 mL (100 units/mL) in 0.45 % [...] BPA Driven Protocol [employer] [facility] Electrolyte Replacement Protocol Algorithm to View Details [...] BPA Driven Protocol [employer] [facility] Electrolyte Replacement Protocol Algorithm to View Details [...] documented as of this encounter Care Teams Paper Coating Supervisor Relationship Specialty Start Date End Date Provider, [place] [address] PCP - General 05/09/23 documented as of this encounter
--- OUTSIDE RECORDS SUMMARY | 2025-04-07 18:00 | XMS_ITS | Encounter Summary ---
[facility] Address [address] [place] [address] Care Team Providers Care Child Care Supervisor Name Role Phone Provider, No Known Primary Care Provider Unavail able Reason for Visit * Reason Comments Leg Swelling * Auth/Cert Specialty Diagnoses / Procedures Referred By Contac t Referred To Contact Diagnoses Right BKA infection Referral ID Status Reason Start Date Expiration Date Visits Re quested Visits Authorized [id number] 1 1 Encounter Details Date Type Department Care Team (Late st Contact Info) Description 04/07/2025 6:00 PM EDT - 04/07/2025 6:52 PM EDT Surgery [facility] OR [address] [place] [address] Sushil Dean Jr., MD [address] [place] [address] [address] [id number] LEG DEBRIDEMENT, IRRIGATION Social History Tobacco Use Types Packs/Day Years Used Date Smoking Tobacco: Never Smokeless Tobacco: Never Tobacco Cessation:Counseling Given: Not Answered Alcohol Use Standard Drinks/Week Comments Not Currently 0 (1 standard drink = 0.6 oz pur e alcohol) [facility] Utilities Answer Date Recorded In the past 12 months has [employer] electric, gas, oil, or water company threatened [...] or training? Not on file Preferred Language Finnish 04/07/2025 Sex and Gender Information Value Date [...] 2:25 PM EDT Cherri Grimm RN * [place] Suicide Severity Rating Scale (Screener/Recent Self-Report) Question [...] from the original note were not included. [facility] Medicine Services DISCHARGE SUMMARY Patient [...] Date/Time Wound Culture - Swab, Leg, Right [[id number]] (Abnormal) (Susceptibility) Collected: 04/07/252106 Lab Status: Final [...] Units Date/Time FL C Arm During Surgery [[id number]] Resulted: 04/07/252137 Updated: 04/07/252137 Narrative: This procedure was auto-finalized with no dictation required. MRI Tibia Fibula Right With & Without Contrast [[id number]] Collected: 04/07/25 0938 Updated: 04/07/25 1001 Narrative: [...] Buenrostro 04/07/2025 9:58 AM EDT Workstation ID: [id number] MRI Tibia Fibula Right With & Without Contrast [[id number]] Collected: 04/04/252256 Updated: 04/04/252302 Narrative: MRI TIBIA [...] represent a small area of phlegmonous change (iflxnt77 image 10) measuring approximately 1.6 cm which [...] MD 04/04/2025 11:00 PM EDT Workstation ID: [id number] Pending Labs Order Current Status Fungus Culture [...] Male) Date of 1980 Social Security Number [id number] [place] [address] [place] [address] Spiritism Unknown Marital Status Unknown Admission Date 04/04/2025 Admission Type Emergency Admitting Provider Jadyn Richardson DO Attending Provider Jadyn Richardson DO Department, Room/Bed [facility] 5G, S565/1 Discharge Date Discharge Disposition Discharge Destination Attending Provider: Jadyn Richardson DO Allergies: Ceftin [Cefuroxime], Keflex [Cephalexin], Latex Isolation: None Infection: MRSA (05/11/23) Code Status: CPR Ht: 180.3 cm (71 ) Wt: 134 kg (295 lb) Admission Cmt: None 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 Insurance as of 04/04/2025 Primary Coverage Payor Plan Insurance Group Employer/Plan Group [place] [id number] Payor Plan Address Payor Plan Phone Number Payor Plan Fax Number Effective Dates [employer] [address] [address] 08/10/2023 - None Entered [facility] [address] Subscriber Name Subscriber Date Member ID WON DENNIS 1980 [id number] Emergency 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.) Home Phone Work Phone Mobile Phone Avril Dennis (Spouse) -- -- [phone] Robert Hackett (Relative) -- -- [phone] [facility] 5G [address] [facility] [address] Patient: ROOM: [facility] Won Dennis [address] [facility] [place] [address] : 1980 SSN: [id number] Sex: M PCP: Provider, No Known Emergency Contact Information Name Relation Home Work Mobile Avril Dennis Spouse [phone] Other Contacts Name Relation Home Work Mobile Robert Hackett Relative [phone] INSURANCE PAYOR [employer]AN [employer] # SUBSCRIBER ID Primary: Secondary: MEDICARE [employer] [id number] Admitting Diagnosis: 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 Outpatient intravenous antibiotic therapy: Daptomycin 800 mg IV daily to be supplied by [facility] 2. Home health to perform [...] INFECTIOUS DISEASE Progress Note Won Dennis 1980 [id number] Date of Consult: 04/10/2025 Admission Date: 04/04/2025 [...] Jr., MD, 20 mg at 04/09/25906 heparin 74410 units/250 mL (100 units/mL) in 0.45 % [...] vancomycin 2750 mg/500 mL 0.9% NS IVPB ([facility]) Ordering Provider: Mario Crowley, DO [...] Units Date/Time FL C Arm During Surgery [[id number]] Resulted: 04/07/252137 Updated: 04/07/252137 Narrative: This procedure was auto-finalized with no dictation required. MRI Tibia Fibula Right With & Without Contrast [[id number]] Collected: 04/07/2538 Updated: 04/07/25 1001 Narrative: MRI [...] Buenrostro 04/07/2025 9:58 AM EDT Workstation ID: [id number] Impression: Recurrent Right BKA stump abscess/cellulitis- this [...] 04/10/251323 Creation Time: 04/10/251323 Signed [facility] Medicine Services PROGRESS NOTE Patient [...] Date/Time Wound Culture - Swab, Leg, Right [[id number]] (Abnormal) (Susceptibility) Collected: 04/07/252106 Lab Status: Final [...] Row Name 04/06/25 1143 Sit-Stand Transfer Sit-Stand [place] (Transfers) modified independence - Comment, (Sit-Stand Transfer) Pt stood from recliner. Not holding onto walker, pt able to pull his pants up while balancing on his one leg. -LM Row Name 04/06/25 1143 Gait/Stairs (Locomotion) [place] Level (Gait) modified independence - Distance in Feet (Gait) 100 -LM Comment, (Gait/Stairs) No unsteadiness noted. Pt has a prosthesis at home but has been told not to wear it until this medical issue is cleared up. Pt states he has everything he needs at home and doesn't feel like he needs skilled PT while he is here. -LM User Carbera (r) = Recorded By, (t) = Taken By, (c) = Cosigned By Initials Name Provider Type Gilda Pughi, BRIANA Physical Therapist Obj/Interventions Row Name 04/06/25 1145 Range of Motion Comprehensive General Range of Motion bilateral lower extremity ROM WFL -LM [facility] Name 04/06/25 1145 Strength Comprehensive (MMT) General Manual Muscle Testing (MMT) Assessment no strength deficits identified BLEs -LM [facility] Name 04/06/25 1145 Balance Balance [...] Clinical Impression [facility] 04/06/25 1146 Pain Pretreatment Pain Rating 0/10 - no pain -LM Posttreatment Pain Rating 0/10 - no pain -LM [facility] 04/06/25 1146 Plan of Care Review Plan of Care Reviewed With patient -LM Outcome Evaluation PT evaluation completed. Pt demonstrated independence with all mobility including ambulating 100 feet using rw - no unsteadiness noted. Pt reports he feels at baseline and doesn't think he needs skilled PT while here. Recommend home at d/c. PT signing off. -LM [facility] Name 04/06/25 1146 Therapy Assessment/Plan (PT) Criteria for Skilled Interventions Met (PT) no;no problems identified which require skilled intervention -LM Therapy Frequency (PT) evaluation only -LM Predicted Duration of Therapy Intervention (PT) Eval Only -LM [facility] Name 04/06/25 1146 Vital Signs Pretreatment Heart Rate (beats/min) 86 -LM Posttreatment Heart Rate (beats/min) 96 -LM Pre SpO2 (%) 95 -LM O2 Delivery Pre Treatment room air -LM Post SpO2 (%) 96 -LM O2 Delivery Post Treatment room air -LM Pre Patient Position Sitting -LM Post Patient Position Sitting -LM [facility] Name 04/06/25 1146 Positioning and [...] Nurse Physical Therapy Education Title: PT OT TESTER EQUIPMENT Therapies (Done) Topic: Physical Therapy (Done) Point: Mobility training (Done) Learning Progress Summary Patient Acceptance, E, VU,DU by at 04/06/2025 1147 Point: Precautions (Done) Learning Progress Summary Patient Acceptance, E, VU,DU by at 04/06/2025 1147 User Cabrera Initials Effective Dates Name Provider Type [facility] 01/24/25 - Susan Cavazos, PT Physical [...] Description Service Date Service Provider Modifiers Qty [id number] PT EVAL LOW COMPLEXITY 3 04/06/2025 Susan [...] mg Daily 04/05/2025 -- Route: Oral heparin 83754 units/250 mL (100 units/mL) in 0.45 % [...] [facility] [address], [address] [facility], [address] Please schedule at [phone] VONDA Garcia 04/11/25 08:32 EDT Cosigned by Sushil Dean Jr., MD at 04/19/2025 10:33 AM EDT Associated attestation - Sushil Dean Jr., MD - 04/19/2025 10:33 AM EDT I have reviewed this documentation and agree. * Rosario Hill APRN - 04/10/2025 1:24 PM EDT Images from the original note were not included. [facility] Medicine Services PROGRESS NOTE Patient [...] Date/Time Wound Culture - Swab, Leg, Right [[id number]] (Abnormal) (Susceptibility) Collected: 04/07/252106 Lab Status: Final [...] mg Daily 04/05/2025 -- Route: Oral heparin 33988 units/250 mL (100 units/mL) in 0.45 % [...] [facility] [address] [facility] [address], [address] [facility], [address] Please schedule at [phone] VONDA Garcia 04/10/25 09:01 EDT Cosigned by Sushil Dean Jr., MD at 04/19/2025 10:33 AM EDT Associated attestation - Sushil Dean Jr., MD - 04/19/2025 10:33 AM EDT I have reviewed this documentation and agree. * Carlton Mead MD - 04/10/2025 7:38 AM EDT Images from the original note were not included. INFECTIOUS DISEASE Progress Note Won Dennis 1980 [id number] Date of Consult: 04/10/2025 Admission Date: 04/04/2025 [...] IRRIGATION; Surgeon: Sushil Dean Jr., MD; Location: [facility]; Service: Orthopedics; Laterality: Right; PLACEMENT OF WOUND VAC Right 04/07/2025 Procedure: WOUND VACUUM ASSISTED CLOSURE; Surgeon: Sushil Dean Jr., MD; Location: [facility]; Service: Orthopedics; Laterality: Right; WOUND CLOSURE [...] Jr., MD, 20 mg at 04/09/25906 heparin 72163 units/250 mL (100 units/mL) in 0.45 % [...] Units Date/Time FL C Arm During Surgery [[id number]] Resulted: 04/07/252137 Updated: 04/07/252137 Narrative: This procedure was auto-finalized with no dictation required. MRI Tibia Fibula Right With & Without Contrast [[id number]] Collected: 04/07/25937 Updated: 04/07/25 100 Narrative: MRI [...] Buenrostro 04/07/2025 9:58 AM EDT Workstation ID: [id number] Impression: Recurrent Right BKA stump abscess/cellulitis- this [...] EDT * Larisa Hamilton [facility] - 04/10/2025 7:17 AM EDT Pharmacy [...] from the original note were not included. [facility] Medicine Services PROGRESS NOTE Patient [...] Date/Time Wound Culture - Swab, Leg, Right [[id number]] (Abnormal) Collected: 04/07/252106 Lab Status: Preliminary result [...] Level Of Support Discussed With: Patient Jason lÁvarez DO 04/09/25 * Larisa Hamilton [facility] - 04/09/2025 11:36 AM EDT Pharmacy [...] -- Admin Instructions: Open Order & Select [facility] Electrolyte Replacement Protocol Algorithm to [...] mg Daily 04/05/2025 -- Route: Oral heparin 92994 units/250 mL (100 units/mL) in 0.45 % [...] -- Admin Instructions: Open Order & Select [facility] Electrolyte Replacement Protocol Algorithm to [...] [facility] [address], [address] [facility], [address] Please schedule at [phone] VONDA Garcia 04/09/25 09:18 EDT Cosigned by Sushil Dean Jr., MD at 04/19/2025 10:33 AM EDT Associated attestation - Sushil Dean Jr., MD - 04/19/2025 10:33 AM EDT I have reviewed this documentation and agree. * Carlton Mead MD - 04/09/2025 8:25 AM EDT Images from the original note were not included. INFECTIOUS DISEASE Progress Note Won Dennis 1980 [id number] Date of Consult: 04/09/2025 Admission Date: 04/04/2025 [...] IRRIGATION; Surgeon: Sushil Dean Jr., MD; Location: [facility]; Service: Orthopedics; Laterality: Right; PLACEMENT OF WOUND VAC Right 04/07/2025 Procedure: WOUND VACUUM ASSISTED CLOSURE; Surgeon: Sushil Dean Jr., MD; Location: [facility] OR; Service: Orthopedics; Laterality: Right; [...] MD, 20 mg at 04/08/25 0800 heparin 61281 units/250 mL (100 units/mL) in 0.45 % [...] Units Date/Time FL C Arm During Surgery [[id number]] Resulted: 04/07/252137 Updated: 04/07/252137 Narrative: This procedure was auto-finalized with no dictation required. MRI Tibia Fibula Right With & Without Contrast [[id number]] Collected: 04/07/25 0938 Updated: 04/07/25 1001 Narrative: [...] Chitra 04/07/2025 9:58 AM EDT Workstation ID: [id number] Impression: Recurrent Right BKA stump abscess/cellulitis- this [...] mg IV daily to be supplied by [facility] 2. Home health to perform [...] from the original note were not included. [facility] Medicine Services PROGRESS NOTE Patient [...] Buenrostro 04/07/2025 9:58 AM EDT Workstation ID: [id number] I have personally reviewed the therapy plans: [...] 04/08/25 * Hamilton, Larisa, [facility] - 04/08/2025 11:48 AM EDT Pharmacy [...] -- Admin Instructions: Open Order & Select [facility] Electrolyte Replacement Protocol Algorithm to [...] mg Daily 04/05/2025 -- Route: Oral heparin 77232 units/250 mL (100 units/mL) in 0.45 % [...] INFECTIOUS DISEASE Progress Note Won Dennis 1980 [id number] Date of Consult: 04/08/2025 Admission Date: 04/04/2025 [...] Sushil Dean Jr., MD; Location: [facility] OR; Service: Orthopedics; Laterality: Right; PLACEMENT OF WOUND VAC Right 04/07/2025 Procedure: WOUND VACUUM ASSISTED CLOSURE; Surgeon: Sushil Dean Jr., MD; Location: [facility] OR; Service: Orthopedics; Laterality: Right; [...] Oral, Q6H PRN, 500 mg at 04/06/25 4324 OR acetaminophen (TYLENOL) 160 MG/5ML oral solution [...] Jr., MD, 20 mg at 04/07/25950 heparin 66041 units/250 mL (100 units/mL) in 0.45 % [...] vancomycin 2750 mg/500 mL 0.9% NS IVPB ([facility]) Ordering Provider: Mario Crowley, DO [...] Units Date/Time FL C Arm During Surgery [[id number]] Resulted: 04/07/252137 Updated: 04/07/252137 Narrative: This procedure was auto-finalized with no dictation required. MRI Tibia Fibula Right With & Without Contrast [[id number]] Collected: 04/07/25 0938 Updated: 04/07/25 1001 Narrative: [...] Buenrostro 04/07/2025 9:58 AM EDT Workstation ID: [id number] Impression: Right BKA stump cellulitis- s/p BKA with multiple surgical interventions with Known MRSA 05/09/2025. (Treated by ID in [place] Dr. Harris). Dr. Torres treated him [...] from the original note were not included. [facility] Medicine Services PROGRESS NOTE Patient [...] Buenrostro 04/07/2025 9:58 AM EDT Workstation ID: [id number] I have personally reviewed the therapy plans: [...] 04/07/25 * Larisa Hamilton, [facility] - 04/07/2025 11:56 AM EDT Pharmacy [...] INFECTIOUS DISEASE Progress Note Won Dennis 1980 [id number] Date of Consult: 04/07/2025 Admission Date: 04/04/2025 [...] MD, 20 mg at 04/06/25 0900 heparin 02853 units/250 mL (100 units/mL) in 0.45 % NaCl infusion, 18 Units/kg/hr, Intravenous, Titrated, Cherri Beatty, [facility], Last Rate: 24.1 mL/hr at 04/07/258, [...] With & Without Contrast - In process [[id number]] Resulted: 04/07/25828 Updated: 04/07/25828 This result has not been signed. Information might be incomplete. MRI Tibia Fibula Right With & Without Contrast [[id number]] Collected: 04/04/252256 Updated: 04/04/253 Narrative: MRI TIBIA [...] represent a small area of phlegmonous change ([id number] image 10) measuring approximately 1.6 cm which [...] MD 04/04/2025 11:00 PM EDT Workstation ID: [id number] Impression: Right BKA stump cellulitis- s/p BKA with multiple surgical interventions with Known MRSA 05/09/2025. (Treated by ID in [place] Dr. Harris). Dr. Torres treated him [...] -- Admin Instructions: Open Order & Select [facility] Electrolyte Replacement Protocol Algorithm to [...] mg Daily 04/05/2025 -- Route: Oral heparin 79547 units/250 mL (100 units/mL) in 0.45 % [...] -- Admin Instructions: Open Order & Select [facility] Electrolyte Replacement Protocol Algorithm to [...] EDT * Cherri Beatty [facility] - 04/06/2025 1:47 PM EDT Pharmacy [...] from the original note were not included. [facility] Medicine Services PROGRESS NOTE Patient [...] MD 04/04/2025 11:00 PM EDT Workstation ID: [id number] I have personally reviewed the therapy plans: [...] mg Daily 04/05/2025 -- Route: Oral heparin 47862 units/250 mL (100 units/mL) in 0.45 % [...] -- Admin Instructions: Open Order & Select [facility] Electrolyte Replacement Protocol Algorithm to [...] -- Admin Instructions: Open Order & Select [facility] Electrolyte Replacement Protocol Algorithm to [...] INFECTIOUS DISEASE follow up. Won Dennis 1980 [id number] Date of Consult: 04/06/2025 Admission Date: 04/04/2025 [...] MD, 20 mg at 04/06/25 0900 heparin 55524 units/250 mL (100 units/mL) in 0.45 % NaCl infusion, 18 Units/kg/hr, Intravenous, Titrated, Cherri Beatty [facility], Last Rate: 24.1 mL/hr at 04/06/25 [...] Tibia Fibula Right With & Without Contrast [[id number]] Collected: 04/04/252256 Updated: 04/04/252302 Narrative: MRI TIBIA [...] MD 04/04/2025 11:00 PM EDT Workstation ID: [id number] Impression: Right BKA stump cellulitis- s/p BKA with multiple surgical interventions with Known MRSA 05/09/2025. (Treated by ID in [place] Dr. Harris). Dr. Torres treated him [...] 0.30 11 -- -- 11 1200 ALDEN LIEGH 04/05 1215 0.17 11 1999 +3 14 2100 ALDEN Beatty RPH 04/05/2025 14:55 EDT * Jason Álvarez DO - 04/05/2025 12:43 PM EDT Images from the original note were not included. [facility] Medicine Services PROGRESS NOTE Patient [...] MD 04/04/2025 11:00 PM EDT Workstation ID: [id number] I have personally reviewed the therapy plans: [...] from the original note were not included. [facility] Medicine Services HISTORY AND PHYSICAL [...] MD 04/04/2025 11:00 PM EDT Workstation ID: [id number] Assessment & Plan Assessment & Plan Won [...] SURGERY [facility], [facility] [address] [address] Orthopedic Consult Patient: Won Dennis Date of [...] was evaluated in the emergency department in [place], was discharged with instructions for follow-up. He [...] tablet by mouth Daily. 04/03/2025 Morning Lactobacillus-Inulin ([facility]) capsule Take 200 mg by mouth [...] MD 04/04/2025 11:00 PM EDT Workstation ID: [id number] Assessment: Right BKA infection 44-year-old male with [...] DISEASE CONSULT/INITIAL HOSPITAL VISIT Won Dennis 1980 [id number] Date of Consult: 04/05/2025 Admission Date: 04/04/2025 [...] Leonora Shepherd MD, 40 mg at 04/04/25 4122 sennosides-docusate (PERICOLACE) 8.6-50 MG per tablet 2 [...] MD, 20 mg at 04/05/25 09 heparin 36902 units/250 mL (100 units/mL) in 0.45 % [...] Leonora Shepherd MD, 10 mg at 04/04/25 4089 Pharmacy to Dose Heparin, , Not Applicable, [...] Tibia Fibula Right With & Without Contrast [[id number]] Collected: 04/04/252256 Updated: 04/04/252302 Narrative: MRI TIBIA [...] represent a small area of phlegmonous change (snqook77 image 10) measuring approximately 1.6 cm which [...] MD 04/04/2025 11:00 PM EDT Workstation ID: [id number] Impression: Right BKA stump cellulitis- s/p BKA with multiple surgical interventions with Known MRSA 05/09/2025. (Treated by ID in [place] Dr. Harris). Dr. Torres treated him [...] Jr., MD - 04/08/2025 3:51 PM EDT [facility] OPERATIVE REPORT PATIENT NAME: Won Dennis DATE OF : 1980 PREOP DIAGNOSIS: Right Right below-knee amputation infection POSTOP DIAGNOSIS: Same. PROCEDURE: Right Right 72901: Secondary closure below-knee amputation SURGEON: Sushil Dean MD OPERATIVE TEAM: [place] District Clerk: Susi Grullon RN Scrub Person: Mary Paredes Scrub Person Extra: Hortencia Toribio Other: Katt Gotti RN; Charis Neville RN ANESTHETIST: Anesthesiologist: Ulises Hoffman MD DECKHAND CRAB BOAT: Stan Casillas CRNA Student Nurse Offset Label Rewinder: Karol Albert SRNA ANESTHESIA: Choice ESTIMATED BLOOD [...] CULTURE (Canceled) Sushil Dean Jr., MD 04/08/25 0127 Description: RIGHT LEG DEEP WOUND FOR CULTURE [...] EDT [facility], [place] [address] OPERATIVE REPORT PATIENT NAME: Won Dennis DATE OF : 1980 PREOP DIAGNOSIS: Right Right below knee amputation stump infection POSTOP DIAGNOSIS: Same. PROCEDURE: Right Right 53543: Incision and drainage of surgical site infection 85636: Debridement of skin, subcutaneous tissue, muscle 28868: Wound vacuum-assisted closure SURGEON: Sushil Dean MD OPERATIVE TEAM: Federal [place] Clerk: Anum Sanchez RN Scrub Person: Hortencia Toribio; Gerald Ivey CELERY STRIPPER: Anesthesiologist: Luci Alonso DO ANESTHESIA: General ESTIMATED [...] this chart in the absence of a fisher hoop net. No orders to display RADIOLOGY: [x] Radiologist's [...] software. Mario Crowley DO Attending Emergency Physician Maroi Crowley DO 04/04/251945 documented in this encounter [...] is discharging home with outpatient infusion at [facility]. He has an appointment with [facility] at 8:00 am tomorrow. They will do PICC line dressing changes. DEBRA has spoke with Dena at [facility] today multiple times to get setup [...] to get IV ABX at home with [facility]; however, Medicaid lapsed on 04/08. DEBRA was unaware until this morning that Medicaid has lapsed. Patient explained that he has Medicare A and B. CM spoke with KELLEE and given themhis Medicare number [id number], she sent it to Admission. DEBRA spoke with Kerri, with [facility], and explained that he had [...] changes and lab work. DEBRA called Dena [facility] Outpatient infusion center they can accept patient and start him. He is known for their facility. The Facility will need to run it through his insurance first. CM faxed the orders over to [facility] at [phone]. CM will follow up with them tomorrow at [facility] to make sure they received the [...] 04/09/2025 2:51 PM EDT Continued Stay Note [facility] Patient Name: Won Dennis Today's Date: 04/09/2025 Admit Date: 04/04/2025 Plan: Home Discharge Plan Row Name 04/09/25 1311 Plan Plan Home Patient/Family in Agreement with Plan yes Plan Comments CM spoke with patient at bedside today. Wheelchair from [employer] is at bedside. Patient getting PICC line [...] note were not included. Discharge Planning Assessment [facility] Patient Name: Won Dennis Today's [...] family Patient/Family Anticipated Services at Transition case preparer and linerclient delivery manager Anticipated family or friend will provide [...] home. CM will order wheelchair through [facility]. He is not current with home health services. PCP is Dr. Jordan. Insurance is [employer] [place]. Patient discharge plan is home with priavte transport. CM will follow for any discharge needs. Final Discharge Disposition Code 01 - home or self-care Continued Care and Services - Admitted Since 04/04/2025 No active coordination exists. Demographic Summary Row Name 04/07/25 1143 General Information Arrived From hospital Preferred Language Finnish Functional Status Row Name 04/07/25 1143 Functional [...] CBC Auto Differential (04/11/2025 3:40 AM EDT) [facility] WBC 7.87 3.40 - 10.80 10*3/mm3 04/11/2025 4:02 AM EDT [facility] RBC 4.70 4.14 - 5.80 10*6/mm3 04/11/2025 4:02 AM [facility] Hemoglobin 12.8(L) 13.0 - 17.7 g/dL 04/11/2025 4:02 AM [facility] Hematocrit 40.5 37.5 - 51.0 % 04/11/2025 4:02 AM [facility] MCV 86.2 79.0 - 97.0 fL 04/11/2025 4:[facility] MCH 27.2 26.6 - 33.0 pg 04/11/2025 4:02 AM [facility] MCHC 31.6 31.5 - 35.7 g/dL 04/11/2025 4:02 AM [facility] RDW 12.9 12.3 - 15.4 % 04/11/2025 4:02 AM [facility] RDW-SD 40.5 37.0 - 54.0 fl 04/11/2025 4:02 AM [facility] MPV 9.2 6.0 - 12.0 fL 04/11/2025 4:02 AM [facility] Platelets 267 140 - 450 10*3/mm3 04/11/2025 4:02 AM [facility] Neutrophil % 59.5 42.7 - 76.0 % 04/11/2025 4:02 AM [facility] Lymphocyte % 26.3 19.6 - 45.3 % 04/11/2025 4:02 AM [facility] Monocyte % 9.3 5.0 - 12.0 % 04/11/2025 4:02 AM [facility] Eosinophil % 4.1 0.3 - 6.2 % 04/11/2025 4:02 [facility] Basophil % 0.4 0.0 - 1.5 % 04/11/2025 4:02 [facility] Immature Grans % 0.4 0.0 - 0.5 % 04/11/2025 4:02 AM [facility] Neutrophils, Absolute 4.69 1.70 - 7.00 10*3/mm3 04/11/2025 4:02 AM EDT [facility] Lymphocytes, Absolute 2.07 0.70 - 3.10 10*3/mm3 04/11/2025 4:02 AM EDT [facility] Monocytes, Absolute 0.73 0.10 - 0.90 10*3/mm3 04/11/2025 4:02 AM EDT [facility] Eosinophils, Absolute 0.32 0.00 - 0.40 10*3/mm3 04/11/2025 4:02 AM EDT [facility] Basophils, Absolute 0.03 0.00 - 0.20 10*3/mm3 04/11/2025 4:02 AM EDT [facility] Immature Grans, Absolute 0.03 0.00 - 0.05 10*3/mm3 04/11/2025 4:02 AM EDT [facility] nRBC 0.0 0.0 - 0.2 /100 WBC 04/11/2025 4:02 AM EDT [facility] Blood Venipuncture / Unknown 04/11/2025 3:40 AM EDT 04/11/2025 3:59 AM EDT us Sushil Dean Jr., MD LAB BLOOD ORDERABLES Fi nal Result [facility]
[address] [place] [address], * (ABNORMAL) Comprehensive Metabolic Panel (04/11/2025 3:40 AM EDT) [facility] Signature Glucose 108(H) 65 - 99 mg/dL 04/11/2025 4:19 AM EDT [facility] BUN 12.5 6.0 - 20.0 mg/dL 04/11/2025 4:19 AM EDT [facility] Creatinine 0.68(L) 0.76 - 1.27 mg/dL 04/11/2025 4:19 AM [facility] Sodium 140 136 - 145 mmol/L 04/11/2025 4:19 AM [facility] Potassium 3.8 3.5 - 5.2 mmol/L 04/11/2025 4:19 AM [facility] Chloride 105 98 - 107 mmol/L 04/11/2025 4:19 AM [facility] CO2 28.2 22.0 - 29.0 mmol/L 04/11/2025 4:19 AM [facility] Calcium 8.2(L) 8.6 - 10.5 mg/dL 04/11/2025 4:19 AM [facility] Total Protein 6.1 6.0 - 8.5 g/dL 04/11/2025 4:19 AM [facility] Albumin 3.1(L) 3.5 - 5.2 g/dL 04/11/2025 4:19 AM [facility] ALT (SGPT) 52(H) 1 - 41 U/L 04/11/2025 4:19 AM [facility] AST (SGOT) 40 1 - 40 U/L 04/11/2025 4:19 AM [facility] Alkaline Phosphatase 99 39 - 117 U/L 04/11/2025 4:19 AM [facility] Total Bilirubin 0.2 0.0 - 1.2 mg/dL 04/11/2025 4:19 AM [facility] Globulin 3.0 gm/dL 04/11/2025 4:19 AM [facility] Comment:Calculated Result A/G Ratio 1.0 g/dL 04/11/2025 4:19 AM [facility] BUN/Creatinine Ratio 18.4 7.0 - 25.0 04/11/2025 4:19 AM [facility] Anion Gap 6.8 5.0 - 15.0 mmol/L 04/11/2025 4:19 AM [facility] eGFR 117.5 >60.0 mL/min/1.7 3 04/11/2025 4:19 AM EDT [facility] Blood Venipuncture / Unknown 04/11/2025 3:40 AM EDT 04/11/2025 3:56 AM EDT [facility] - 04/11/2025 4:19 AM EDT GFR [...] include race as a factor Rosario Hill [employer] LAB BLOOD ORDERABLES Final Result [facility]
[address] [place] [address], * (ABNORMAL) CBC Auto Differential (04/10/2025 3:46 AM EDT) WBC 9.60 3.40 - 10.80 10*3/mm3 04/10/2025 3:56 AM EDT [facility] RBC 4.67 4.14 - 5.80 10*6/mm3 04/10/2025 3:56 AM EDT [facility] Hemoglobin 12.9(L) 13.0 - 17.7 g/dL 04/10/2025 3:56 AM EDT [facility] Hematocrit 40.1 37.5 - 51.0 % 04/10/2025 3:56 AM EDT [facility] MCV 85.9 79.0 - 97.0 fL 04/10/2025 3:56 AM EDT [facility] MCH 27.6 26.6 - 33.0 pg 04/10/2025 3:56 AM EDT [facility] MCHC 32.2 31.5 - 35.7 g/dL 04/10/2025 3:56 [facility] RDW 12.9 12.3 - 15.4 % 04/10/2025 3:56 AM [facility] RDW-SD 40.5 37.0 - 54.0 fl 04/10/2025 3:56 AM [facility] MPV 9.5 6.0 - 12.0 fL 04/10/2025 3:56 AM EDT [facility] Platelets 227 140 - 450 10*3/mm3 04/10/2025 3:56 AM [facility] Neutrophil % 59.1 42.7 - 76.0 % 04/10/2025 3:56 AM [facility] Lymphocyte % 29.0 19.6 - 45.3 % 04/10/2025 3:56 AM [facility] Monocyte % 8.1 5.0 - 12.0 % 04/10/2025 3:56 [facility] Eosinophil % 3.2 0.3 - 6.2 % 04/10/2025 3:56 AM [facility] Basophil % 0.4 0.0 - 1.5 % 04/10/2025 3:56 AM [facility] Immature Grans % 0.2 0.0 - 0.5 % 04/10/2025 3:56 AM [facility] Neutrophils, Absolute 5.67 1.70 - 7.00 10*3/mm3 04/10/2025 3:56 AM [facility] Lymphocytes, Absolute 2.78 0.70 - 3.10 10*3/mm3 04/10/2025 3:56 AM [facility] Monocytes, Absolute 0.78 0.10 - 0.90 10*3/mm3 04/10/2025 3:56 AM [facility] Eosinophils, Absolute 0.31 0.00 - 0.40 10*3/mm3 04/10/2025 3:56 AM [facility] Basophils, Absolute 0.04 0.00 [...] Final Resul t [facility]
[address] [place] [address], * (ABNORMAL) Basic Metabolic Panel (04/10/2025 3:46 AM EDT) Glucose 125(H) 65 - 99 mg/dL 04/10/2025 4:20 AM EDT [facility] BUN 15.9 6.0 - 20.0 mg/dL 04/10/2025 4:20 AM EDT [facility] Creatinine 0.77 0.76 - 1.27 mg/dL 04/10/2025 4:20 AM EDT [facility] Sodium 137 136 - 145 mmol/L 04/10/2025 4:20 AM EDT [facility] Potassium 3.9 3.5 - 5.2 mmol/L 04/10/2025 4:20 AM EDT [facility] Chloride 102 98 - 107 mmol/L 04/10/2025 4:20 AM EDT [facility] CO2 26.9 22.0 - 29.0 mmol/L 04/10/2025 4:20 AM EDT [facility] Calcium 7.9(L) 8.6 - 10.5 mg/dL 04/10/2025 4:20 AM EDT [facility] BUN/Creatinine Ratio 20.6 7.0 - 25.0 04/10/2025 4:20 AM EDT [facility] Anion Gap 8.1 5.0 - 15.0 mmol/L 04/10/2025 4:20 AM EDT [facility] eGFR 113.2 >60.0 mL/min/1.7 3 04/10/2025 4:20 AM EDT [facility] Blood Venipuncture / Unknown 04/10/2025 3:46 AM EDT 04/10/2025 3:52 AM EDT Narrative [facility] - 04/10/2025 4:20 AM [...] Final Resul t [facility]
[address] [place] [address], * Heparin Anti-Xa (04/10/2025 3:46 AM EDT) Heparin Anti-Xa (UFH) 0.35 0.30 - 0.70 IU/ml 04/10/2025 4:23 AM EDT [facility] Blood Venipuncture / Unknown 04/10/2025 3:46 AM EDT 04/10/2025 3:53 AM EDT Larisa Hamilton [facility] LAB BLOOD ORDERABLES Final R esult [facility]
[address] [place] [address], * Heparin Anti-Xa (04/09/2025 10:05 AM EDT) Pathologist [facility] Heparin Anti-Xa (UFH) 0.36 0.30 - 0.70 IU/ml 04/09/2025 11:12 AM EDT [facility] Blood Venipuncture / Unknown 04/09/2025 10:05 AM EDT 04/09/2025 10:47 AM EDT Larisa Hamilton [facility] LAB BLOOD ORDERABLES Final R esult [facility]
[address] [place] [address], * (ABNORMAL) CBC Auto Differential (04/09/2025 4:18 AM EDT) Pathologist [facility] WBC 11.00(H) 3.40 - 10.80 10*3/mm3 04/09/2025 4:50 AM EDT [facility] RBC [...] - 33.0 pg 04/09/2025 4:50 AM EDT [facility] MCHC 32.2 31.5 - 35.7 g/dL 04/09/2025 4:50 AM EDT [facility] RDW 12.8 12.3 - 15.4 % 04/09/2025 4:50 AM [facility] RDW-SD 39.9 37.0 - 54.0 fl 04/09/2025 4:50 AM [facility] MPV 10.0 6.0 - 12.0 fL 04/09/2025 4:50 AM [facility] Platelets 211 140 - 450 10*3/mm3 04/09/2025 4:50 [facility] Neutrophil % 74.8 42.7 - 76.0 % 04/09/2025 4:50 AM [facility] Lymphocyte % 15.4(L) 19.6 - 45.3 % 04/09/2025 4:50 AM [facility] Monocyte % 8.5 5.0 - 12.0 % 04/09/2025 4:50 AM [facility] Eosinophil % 0.6 0.3 - 6.2 % 04/09/2025 4:50 AM [facility] Basophil % 0.4 0.0 - 1.5 % 04/09/2025 4:50 AM [facility] Immature Grans % 0.3 0.0 - 0.5 % 04/09/2025 4:50 AM [facility] Neutrophils, Absolute 8.23(H) 1.70 - 7.00 10*3/mm3 04/09/2025 4:50 AM [facility] Lymphocytes, Absolute 1.69 0.70 - 3.10 10*3/mm3 04/09/2025 4:50 AM [facility] Monocytes, Absolute 0.94(H) 0.10 - 0.90 10*3/mm3 04/09/2025 4:50 AM [facility] Eosinophils, Absolute 0.07 0.00 - 0.40 10*3/mm3 04/09/2025 4:50 AM [facility] Basophils, Absolute 0.04 0.00 - 0.20 10*3/mm3 04/09/2025 4:50 AM [facility] Immature Grans, Absolute 0.03 0.00 - 0.05 10*3/mm3 04/09/2025 4:50 AM EDT [facility] nRBC 0.0 0.0 - 0.2 /100 WBC 04/09/2025 4:50 AM EDT [facility] Blood Venipuncture / Unknown 04/09/2025 4:18 AM EDT 04/09/2025 4:31 AM EDT Sushil Dean Jr., MD LAB BLOOD ORDERABLES Fi nal Result [facility]
[address] [place] [address], * Heparin Anti-Xa (04/09/2025 4:18 AM EDT) Heparin Anti-Xa (UFH) 0.41 0.30 - 0.70 IU/ml 04/09/2025 4:53 AM EDT [facility] Blood Venipuncture / Unknown 04/09/2025 4:18 AM EDT 04/09/2025 4:31 AM EDT Una LundbergD LAB BLOOD ORDERABLES Final R esult [facility]
[address] [place] [address], * (ABNORMAL) Basic Metabolic Panel (04/09/2025 4:18 [...] EDT 04/09/2025 4:29 AM EDT [facility] - 04/09/2025 5:33 AM EDT GFR [...] Fi nal Result [facility]
[address] [place] [address], * Wound Culture - Swab, Leg, Right (04/08/2025 3:40 PM EDT) Wound Culture No growth at 3 days ALIZA 04/11/2025 10:40 AM EDT [facility] Gram Stain Few (2+) WBCs seen 04/11/2025 10:40 AM EDT [facility] Gram Stain No organisms seen 04/11/2025 10:40 AM EDT [facility] Swab Structure of right lower limb / Unknown 04/08/2025 3:40 PM EDT 04/08/2025 8:05 PM EDT Sushil Dean Jr., MD MICROBIOLOGY - GENERAL ORDERABLES Final Result Performing Organization Address City/[facility]/ZIP Co de Phone Number [facility]
[address] [place] [address], [facility]
[address] [place] [address], * Anaerobic Culture - Swab, Leg, Right (04/08/2025 3:40 PM EDT) Pathologist [facility] Anaerobic Culture No anaerobes isolated at 5 days ALIZA 04/13/2025 7:24 AM EDT [facility] Swab Structure of right lower limb / Unknown 04/08/2025 3:40 PM EDT 04/08/2025 8:05 PM EDT Sushil Dean Jr., MD MICROBIOLOGY - GENERAL ORDERABLES Final Result [facility]
[address] [place] [address], * Scan Slide (04/08/2025 8:41 AM EDT) [...] Final R esult [facility]
[address] [place] [address], * (ABNORMAL) CBC Auto Differential (04/08/2025 8:41 AM EDT) WBC 10.07 3.40 - 10.80 10*3/mm3 04/08/2025 11:02 AM EDT [facility] RBC 5.01 4.14 - 5.80 10*6/mm3 04/08/2025 11:02 AM EDT [facility] Hemoglobin 14.0 13.0 - 17.7 g/dL 04/08/2025 11:02 AM EDT [facility] Hematocrit 42.7 37.5 - 51.0 % 04/08/2025 11:02 AM EDT [facility] MCV 85.2 79.0 - 97.0 fL 04/08/2025 11:02 AM EDT [facility] MCH 27.9 26.6 - 33.0 pg 04/08/2025 11:02 AM EDT [facility] MCHC 32.8 31.5 - 35.7 g/dL 04/08/2025 11:02 AM EDT [facility] RDW 12.6 12.3 - 15.4 % 04/08/2025 11:02 AM EDT [facility] RDW-SD 38.9 37.0 - 54.0 fl 04/08/2025 11:02 AM [facility] MPV 11.0 6.0 - 12.0 fL 04/08/2025 11:02 AM [facility] Platelets 118(L) 140 - 450 10*3/mm3 04/08/2025 11:02 AM [facility] Neutrophil % 85.1(H) 42.7 - 76.0 % 04/08/2025 11:02 AM [facility] Lymphocyte % 9.3(L) 19.6 - 45.3 % 04/08/2025 11:02 AM [facility] Monocyte % 4.6(L) 5.0 - 12.0 % 04/08/2025 11:02 AM [facility] Eosinophil % 0.3 0.3 - 6.2 % 04/08/2025 11:02 AM [facility] Basophil % 0.2 0.0 - 1.5 % 04/08/2025 11:02 AM [facility] Immature Grans % 0.5 0.0 - 0.5 % 04/08/2025 11:02 AM [facility] Neutrophils, Absolute 8.57(H) 1.70 - 7.00 10*3/mm3 04/08/2025 11:02 AM [facility] Lymphocytes, Absolute 0.94 0.70 - 3.10 10*3/mm3 04/08/2025 11:02 AM [facility] Monocytes, Absolute 0.46 0.10 - 0.90 10*3/mm3 04/08/2025 11:02 AM [facility] Eosinophils, Absolute 0.03 0.00 - 0.40 10*3/mm3 04/08/2025 11:02 AM [facility] Basophils, Absolute 0.02 0.00 - 0.20 10*3/mm3 04/08/2025 11:02 AM [facility] Immature Grans, Absolute 0.05 0.00 - 0.05 10*3/mm3 04/08/2025 11:02 AM EDT [facility] nRBC 0.0 0.0 - 0.2 /100 WBC 04/08/2025 11:02 AM EDT [facility] Blood Venipuncture / Unknown 04/08/2025 8:41 AM EDT 04/08/2025 9:10 AM EDT Una Perla PharmD LAB BLOOD ORDERABLES Final R esult [facility]
[address] [place] [address], * (ABNORMAL) Basic Metabolic Panel (04/08/2025 8:41 [...] AM EDT 04/08/2025 9:09 AM EDT Narrative [facility] - 04/08/2025 9:51 AM [...] ORDERABLES Fi nal Result Performing Organization Address City/[facility]/ZIP Co de Phone Number [facility]
[address] [place] [address], * Heparin Anti-Xa (04/08/2025 8:41 AM EDT) Heparin Anti-Xa (UFH) 0.33 0.30 - 0.70 IU/ml 04/08/2025 9:40 AM EDT [facility] Blood Venipuncture / Unknown 04/08/2025 8:41 AM EDT 04/08/2025 9:10 AM EDT us Sushil Dean Jr., MD LAB BLOOD ORDERABLES Fi nal Result [facility]
[address] [place] [address], * FL C Arm During Surgery (04/07/2025 9:32 PM EDT) Narrative SYSTEMGENERATED, DOCUMENTATION - 04/07/2025 9:38 PM EDT This procedure was auto-finalized with no dictation required. us Sushil Dean Jr., MD IMG FLUOROSCOPY ORDERAB LES Final Result * Wound Culture - Swab, Leg, Right (04/07/2025 9:14 PM EDT) Wound Culture No growth at 3 days ALIZA 04/11/2025 10:40 AM EDT [facility] Gram Stain Occasional WBCs seen 04/11/2025 10:40 AM EDT [facility] Gram Stain No organisms seen 04/11/2025 10:40 AM EDT [facility] Swab Structure of right lower limb / Unknown Collection / Unknown 04/07/2025 9:14 PM EDT 04/08/2025 4:36 AM EDT us Sushil Dean Jr., MD MICROBIOLOGY - GENERAL ORDERABLES Final Result Performing Organization Address City/[facility]/ZIP Co de Phone Number [facility]
[address] [place] [address], [facility]
[address] [place] [address], * Anaerobic Culture - Swab, Leg, Right (04/07/2025 9:14 PM EDT) Anaerobic Culture No anaerobes isolated at 5 days ALIZA 04/13/2025 7:21 AM EDT [facility] Swab Structure of right lower limb / Unknown Collection / Unknown 04/07/2025 9:14 PM EDT 04/08/2025 4:36 AM EDT us Sushil Dean Jr., MD MICROBIOLOGY - GENERAL ORDERABLES Final Result [facility]
[address] [place] [address], * Anaerobic Culture - Tissue, Leg (04/07/2025 9:13 PM EDT) Pathologist [facility] Anaerobic Culture No anaerobes isolated at 5 days ALIZA 04/13/2025 7:21 AM EDT [facility] Tissue Lower limb structure / Unknown Collection / Unknown 04/07/2025 9:13 PM EDT 04/08/2025 4:54 AM EDT Jason Álvarez DO MICROBIOLOGY - GENERAL ORDERABLE S Final Result [facility]
[address] [place] [address], * Tissue / Bone Culture - Tissue, Leg, Right (04/07/2025 9:13 PM EDT) [facility] Tissue Culture No growth at 3 days ALIZA 04/11/2025 10:36 AM EDT [facility] Gram Stain Rare (1+) WBCs seen 04/11/2025 10:36 AM EDT [facility] Gram Stain No organisms seen 04/11/2025 10:36 AM EDT [facility] Tissue Structure of right lower limb / Unknown 04/07/2025 9:13 PM EDT 04/08/2025 4:54 AM EDT Sushil Dean Jr., MD MICROBIOLOGY - GENERAL ORDERABLES Final Result [facility]
[address] [place] [address], [facility]
[address] [place] [address], * (ABNORMAL) Wound Culture - Swab, Leg, Right (04/07/2025 9:07 PM EDT) Pathologist [facility] Wound Culture Light growth (2+) Staphylococcus aureus, MRSA(A) ALIZA 04/10/2025 10:38 AM EDT [facility] Comment: Methicillin resistant Staphylococcus [...] MICROBIOLOGY - GENERAL ORDERABLES Final Result [facility]
[address] [place] [address], [place] [phone] [facility]
[address] [place] [address], [place] [phone] * Anaerobic Culture - Swab, Leg, Right (04/07/2025 9:07 PM EDT) Anaerobic Culture No anaerobes isolated at 5 days ALIZA 04/13/2025 7:21 AM EDT [facility] Swab Structure of right lower limb / Unknown Collection / Unknown 04/07/2025 9:07 PM EDT 04/08/2025 4:36 AM EDT us Sushil Dean Jr., MD MICROBIOLOGY - GENERAL ORDERABLES Final Result [facility]
[address] [place] [address], * Heparin Anti-Xa (04/07/2025 9:10 AM EDT) [facility] Heparin Anti-Xa (UFH) 0.30 0.30 - 0.70 IU/ml 04/07/2025 10:12 AM EDT [facility] Blood Venipuncture / Unknown 04/07/2025 9:10 AM EDT 04/07/2025 9:38 AM EDT Una Perla PharmD LAB BLOOD ORDERABLES Final R esult [facility]
[address] [place] [address], * (ABNORMAL) CBC Auto Differential (04/07/2025 9:10 AM EDT) [facility] WBC 8.63 3.40 - 10.80 10*3/mm3 04/07/2025 9:50 AM EDT [facility] RBC 5.23 4.14 - 5.80 10*6/mm3 04/07/2025 9:50 AM EDT [facility] Hemoglobin 14.7 13.0 - 17.7 g/dL 04/07/2025 9:50 AM EDT [facility] Hematocrit 44.8 37.5 - 51.0 % 04/07/2025 9:50 AM EDT [facility] MCV 85.7 79.0 - 97.0 fL 04/07/2025 9:50 AM EDT [facility] MCH 28.1 26.6 - 33.0 pg 04/07/2025 9:50 AM EDT [facility] MCHC 32.8 31.5 - 35.7 g/dL 04/07/2025 9:50 AM EDT [facility] RDW 12.8 12.3 - 15.4 % 04/07/2025 9:50 AM [facility] RDW-SD 39.9 37.0 - 54.0 fl 04/07/2025 9:50 AM [facility] MPV 10.8 6.0 - 12.0 fL 04/07/2025 9:50 AM [facility] Platelets 149 140 - 450 10*3/mm3 04/07/2025 9:50 AM [facility] Neutrophil % 66.7 42.7 - 76.0 % 04/07/2025 9:50 AM [facility] Lymphocyte % 20.5 19.6 - 45.3 % 04/07/2025 9:50 AM [facility] Monocyte % 9.8 5.0 - 12.0 % 04/07/2025 9:50 AM [facility] Eosinophil % 2.1 0.3 - 6.2 % 04/07/2025 9:50 AM [facility] Basophil % 0.3 0.0 - 1.5 % 04/07/2025 9:50 AM [facility] Immature Grans % 0.6(H) 0.0 - 0.5 % 04/07/2025 9:50 AM [facility] Neutrophils, Absolute 5.75 1.70 - 7.00 10*3/mm3 04/07/2025 9:50 AM [facility] Lymphocytes, Absolute 1.77 0.70 - 3.10 10*3/mm3 04/07/2025 9:50 AM [facility] Monocytes, Absolute 0.85 0.10 - 0.90 10*3/mm3 04/07/2025 9:50 AM [facility] Eosinophils, Absolute 0.18 0.00 - 0.40 10*3/mm3 04/07/2025 9:50 AM [facility] Basophils, Absolute 0.03 0.00 - 0.20 10*3/mm3 04/07/2025 9:50 AM [facility] Immature Grans, Absolute 0.05 0.00 - 0.05 10*3/mm3 04/07/2025 9:50 AM EDT [facility] nRBC 0.0 0.0 - 0.2 /100 WBC 04/07/2025 9:50 AM EDT [facility] Blood Venipuncture / Unknown 04/07/2025 9:10 AM EDT 04/07/2025 9:38 AM EDT Jasonalfonso Álvarez LAB BLOOD ORDERABLES Final Resul t [facility]
[address] [place] [address], * (ABNORMAL) Basic Metabolic Panel (04/07/2025 9:10 [...] - 10.5 mg/dL 04/07/2025 10:19 AM EDT [facility] BUN/Creatinine Ratio 17.0 7.0 - 25.0 04/07/2025 10:19 AM EDT [facility] Anion Gap 9.2 5.0 - 15.0 mmol/L 04/07/2025 10:19 AM EDT [facility] eGFR 113.2 >60.0 mL/min/1.7 3 04/07/2025 10:19 AM EDT [facility] Blood [...] Álvarez LAB BLOOD ORDERABLES Final Resul t [facility]
[address] [place] [address], * MRI Tibia Fibula Right With & [...] Bu[place]ro 04/07/2025 9:58 AM EDT Workstation ID: [id number] Narrative 04/07/2025 9:58 AM EDT MRI TIBIA [...] the soft tissues, as before. Procedure Note [facility] MD - 04/07/2025 MRI TIBIA FIBULA [...] Buenrostro 04/07/2025 9:58 AM EDT Workstation ID: [id number] Sushil Dean Jr., MD IM MRI ORDERABLES Mary Beth l Result * Heparin Anti-Xa (04/07/2025 1:42 AM EDT) [facility] Heparin Anti-Xa (UFH) 0.38 0.30 - 0.70 IU/ml 04/07/2025 2:14 AM EDT [facility] Blood Venipuncture / Unknown 04/07/2025 1:42 AM EDT 04/07/2025 1:54 AM EDT Chelsie Turpin [facility] LAB BLOOD ORDERABLES Final R esult [facility]
[address] [place] [address], * Heparin Anti-Xa (04/06/2025 7:16 PM EDT) [facility] Heparin Anti-Xa (UFH) 0.33 0.30 - 0.70 IU/ml 04/06/2025 7:50 PM EDT [facility] Blood Venipuncture / Unknown 04/06/2025 7:16 PM EDT 04/06/2025 7:35 PM EDT Cherri Beatty RP LAB BLOOD ORDERABLES Final Res ult Performing Organization Address City/[facility]/ZIP Co de Phone Number [facility]
[address] [place] [address], * Potassium (04/06/2025 7:16 PM EDT) Potassium 4.0 3.5 - 5.2 mmol/L 04/06/2025 7:53 PM EDT [facility] Blood Venipuncture / Unknown 04/06/2025 7:16 PM EDT 04/06/2025 7:35 PM EDT Jason Álvarez DO LAB BLOOD ORDERABLES Final Resul t Performing Organization Address [facility] de Phone Number [facility]
[address] [place] [address], * (ABNORMAL) Heparin Anti-Xa (04/06/2025 12:36 PM EDT) Heparin Anti-Xa (UFH) 0.24(L) 0.30 - 0.70 IU/ml 04/06/2025 1:23 PM EDT [facility] Blood Venipuncture / Unknown 04/06/2025 12:36 PM EDT 04/06/2025 1:07 PM EDT Una LundbergD LAB BLOOD ORDERABLES Final R esult Performing Organization Address [facility] Co de Phone Number [facility]
[address] [place] [address], * (ABNORMAL) Heparin Anti-Xa (04/06/2025 3:42 AM EDT) Heparin Anti-Xa (UFH) 0.25(L) 0.30 - 0.70 IU/ml 04/06/2025 5:30 AM EDT [facility] Blood Venipuncture / Unknown 04/06/2025 3:42 AM EDT 04/06/2025 4:59 AM EDT Chelsie Turpin [facility] LAB BLOOD ORDERABLES Final R esult [facility]
[address] [place] [address], * (ABNORMAL) Basic Metabolic Panel (04/06/2025 3:42 AM EDT) Pathologist [facility] Glucose 94 65 - 99 mg/dL [...] EDT 04/06/2025 5:20 AM EDT [facility] - 04/06/2025 5:59 AM EDT GFR [...] Final Resul t [facility]
[address] [place] [address], * (ABNORMAL) CBC Auto Differential (04/06/2025 3:41 [...] 79.0 - 97.0 fL 04/06/2025 5:04 AM [facility] MCH 27.4 26.6 - 33.0 pg 04/06/2025 5:04 AM [facility] MCHC 31.8 31.5 - 35.7 g/dL 04/06/2025 5:04 AM [facility] RDW 12.8 12.3 - 15.4 % 04/06/2025 5:04 AM [facility] RDW-SD 40.0 37.0 - 54.0 fl 04/06/2025 5:04 AM [facility] MPV 11.7 6.0 - 12.0 fL 04/06/2025 5:04 AM [facility] Platelets 115(L) 140 - 450 10*3/mm3 04/06/2025 5:04 AM [facility] Neutrophil % 65.3 42.7 - 76.0 % 04/06/2025 5:04 AM [facility] Lymphocyte % 20.5 19.6 - 45.3 % 04/06/2025 5:04 AM [facility] Monocyte % 11.8 5.0 - 12.0 % 04/06/2025 5:04 AM [facility] Eosinophil % 1.8 0.3 - 6.2 % 04/06/2025 5:04 AM [facility] Basophil % 0.3 0.0 - 1.5 % 04/06/2025 5:04 AM [facility] Immature Grans % 0.3 0.0 - 0.5 % 04/06/2025 5:04 AM [facility] Neutrophils, Absolute 7.09(H) 1.70 - 7.00 10*3/mm3 04/06/2025 5:04 AM [facility] Lymphocytes, Absolute 2.23 0.70 - 3.10 10*3/mm3 04/06/2025 5:04 AM [facility] Monocytes, Absolute 1.28(H) 0.10 - [...] ORDERABLES Final Resul t Performing Organization Address City/[facility]/ZIP Co de Phone Number [facility]
[address] [place] [address], [place] [phone] * Heparin Anti-Xa (04/05/2025 8:43 PM EDT) [facility] Heparin Anti-Xa (UFH) 0.38 0.30 - 0.70 IU/ml 04/05/2025 9:09 PM EDT [facility] Blood Venipuncture / Unknown 04/05/2025 8:43 PM EDT 04/05/2025 8:55 PM EDT us hCerri Beatty [facility] LAB BLOOD ORDERABLES Final Res ult Performing Organization Address City/[facility]/ZIP Co de Phone Number [facility]
[address] [place] [address], [place] [phone] * CK (04/05/2025 12:15 PM EDT) Pathologist [facility] Creatine Kinase 140 20 - 200 U/L 04/05/2025 1:31 PM EDT [facility] Blood Venipuncture / Unknown 04/05/2025 12:15 PM EDT 04/05/2025 1:03 PM EDT Carlton Mead MD LAB BLOOD ORDERABLES Final R esult Performing Organization Address City/[facility]/ZIP Co de Phone Number [facility]
[address] [place] [address], * (ABNORMAL) Heparin Anti-Xa (04/05/2025 12:15 PM EDT) Heparin Anti-Xa (UFH) 0.17(L) 0.30 - 0.70 IU/ml 04/05/2025 1:21 PM EDT [facility] Blood Venipuncture / Unknown 04/05/2025 12:15 PM EDT 04/05/2025 1:04 PM EDT Una Perla PharmD LAB BLOOD ORDERABLES Final R esult [facility]
[address] [place] [address], * (ABNORMAL) aPTT (04/05/2025 3:54 AM EDT) [...] Final R esult [facility]
[address] [place] [address], * Heparin Anti-Xa (04/05/2025 3:54 AM EDT) Pathologist [facility] Heparin Anti-Xa (UFH) 0.30 0.30 - 0.70 IU/ml 04/05/2025 4:32 AM EDT [facility] Blood Venipuncture / Unknown 04/05/2025 3:54 AM EDT 04/05/2025 4:15 AM EDT Una CubbyingD LAB BLOOD ORDERABLES Final R esult Performing Organization Address City/[facility]/ZIP Co de Phone Number [facility]
[address] [place] [address], * (ABNORMAL) CBC Auto Differential (04/05/2025 3:54 AM EDT) Pathologist [facility] WBC 11.18(H) 3.40 - 10.80 10*3/mm3 [...] - 33.0 pg 04/05/2025 4:20 AM EDT [facility] MCHC 32.8 31.5 - 35.7 g/dL 04/05/2025 4:20 AM [facility] RDW 12.9 12.3 - 15.4 % 04/05/2025 4:20 AM [facility] RDW-SD 39.7 37.0 - 54.0 fl 04/05/2025 4:20 AM [facility] MPV 10.2 6.0 - 12.0 fL 04/05/2025 4:20 AM [facility] Platelets 160 140 - 450 10*3/mm3 04/05/2025 4:20 AM [facility] Neutrophil % 73.5 42.7 - 76.0 % 04/05/2025 4:20 AM [facility] Lymphocyte % 14.0(L) 19.6 - 45.3 % 04/05/2025 4:20 AM [facility] Monocyte % 11.0 5.0 - 12.0 % 04/05/2025 4:20 AM [facility] Eosinophil % 0.8 0.3 - 6.2 % 04/05/2025 4:20 AM [facility] Basophil % 0.3 0.0 - 1.5 % 04/05/2025 4:20 AM [facility] Immature Grans % 0.4 0.0 - 0.5 % 04/05/2025 4:20 AM [facility] Neutrophils, Absolute 8.23(H) 1.70 - 7.00 10*3/mm3 04/05/2025 4:20 AM [facility] Lymphocytes, Absolute 1.56 0.70 - 3.10 10*3/mm3 04/05/2025 4:20 AM [facility] Monocytes, Absolute 1.23(H) 0.10 - 0.90 10*3/mm3 04/05/2025 4:20 AM [facility] Eosinophils, Absolute 0.09 0.00 - 0.40 10*3/mm3 04/05/2025 4:20 AM [facility] Basophils, Absolute 0.03 0.00 - [...] Final R esult [facility]
[address] [place] [address], * (ABNORMAL) Basic Metabolic Panel (04/05/2025 3:54 AM EDT) Glucose 152(H) 65 - 99 mg/dL 04/05/2025 4:40 AM EDT [facility] BUN 17.3 6.0 - 20.0 mg/dL 04/05/2025 4:40 AM EDT [facility] Creatinine 0.92 0.76 [...] - 29.0 mmol/L 04/05/2025 4:40 AM EDT [facility] Calcium 7.8(L) 8.6 - 10.5 mg/dL 04/05/2025 4:40 AM EDT [facility] BUN/Creatinine Ratio 18.8 7.0 - 25.0 04/05/2025 4:40 AM EDT [facility] Anion Gap 9.0 5.0 - 15.0 mmol/L 04/05/2025 4:40 AM EDT [facility] eGFR 105.2 >60.0 mL/min/1.7 3 04/05/2025 4:40 AM EDT [facility] Blood Venipuncture / Unknown 04/05/2025 3:54 AM EDT 04/05/2025 4:15 AM EDT [facility] - 04/05/2025 4:40 AM EDT GFR [...] MD LAB BLOOD ORDERABLES Final Re sult [facility]
[address] [place] [address], * (ABNORMAL) aPTT (04/05/2025 12:18 AM EDT) PTT 33.6(L) 60.0 - 90.0 seconds 04/05/2025 12:53 AM EDT [facility] Blood Venipuncture / Unknown 04/05/2025 12:18 AM EDT 04/05/2025 12:37 AM EDT [facility] - 04/05/2025 12:53 AM EDT PTT = The equivalent PTT values for the therapeutic range of heparin levels at 0.3 to 0.5 U/ml are 60 to 70 seconds. [facility] PharmD LAB BLOOD ORDERABLES Final R esult Performing Organization Address City/[facility]/ZIP Co de Phone Number [facility]
[address] [place] [address], * (ABNORMAL) Protime-INR (04/05/2025 12:18 AM EDT) Protime 15.9(H) 12.2 - 15.3 Seconds 04/05/2025 12:53 AM EDT [facility] INR 1.19(H) 0.89 - 1.12 04/05/2025 12:53 AM EDT [facility] Blood Venipuncture / Unknown 04/05/2025 12:18 AM EDT 04/05/2025 12:37 AM EDT [facility] Pharm[facility] LAB BLOOD ORDERABLES Final R esult Performing Organization Address [facility] Co de Phone Number [facility]
[address] [place] [address], * Heparin Anti-Xa (04/05/2025 12:18 AM EDT) Pathologist [facility] Heparin Anti-Xa (UFH) 0.39 0.30 - 0.70 IU/ml 04/05/2025 12:54 AM EDT [facility] Blood Venipuncture / Unknown 04/05/2025 12:18 AM EDT 04/05/2025 12:37 AM EDT [facility] PharmD LAB BLOOD ORDERABLES Final R esult Performing Organization Address City/[facility]/ZIP Co de Phone Number [facility]
[address] [place] [address], * MRI Tibia Fibula Right With & [...] MD 04/04/2025 11:00 PM EDT Workstation ID: [id number] Narrative 04/04/2025 11:00 PM EDT MRI TIBIA [...] MD 04/04/2025 11:00 PM EDT Workstation ID: [id number] Leoonra Shepherd MD IMG MRI ORDERABLES Final Resu lt * POC Creatinine (04/04/2025 2:49 PM EDT) Creatinine 1.10 0.60 - 1.30 mg/dL 04/07/2025 7:14 PM EDT [facility] Comment:Serial Number: [id number]: [id number] Venous Blood 04/04/2025 2:49 PM EDT 04/07/2025 7:14 PM EDT Jason Álvarez DO POINT OF CARE TEST ORDERABLES Fi nal Result [facility]
[address] [place] [address], * (ABNORMAL) CBC Auto Differential (04/04/2025 2:47 PM EDT) [facility] WBC 12.72(H) 3.40 - 10.80 [...] - 15.4 % 04/04/2025 2:56 PM EDT [facility] RDW-SD 40.3 37.0 - [...] - 45.3 % 04/04/2025 2:56 PM EDT [facility] Monocyte % 11.2 5.0 - 12.0 % 04/04/2025 2:56 PM EDT [facility] Eosinophil % 0.4 0.3 - 6.2 % 04/04/2025 2:56 PM EDT [facility] Basophil % 0.2 0.0 - 1.5 % 04/04/2025 2:56 PM EDT [facility] Immature Grans % 0.2 0.0 - 0.5 % 04/04/2025 2:56 PM EDT [facility] Neutrophils, Absolute 9.52(H) 1.70 - 7.00 10*3/mm3 04/04/2025 2:56 PM EDT [facility] Lymphocytes, Absolute 1.66 0.70 - 3.10 10*3/mm3 04/04/2025 2:56 PM EDT [facility] Monocytes, Absolute 1.43(H) 0.10 - 0.90 10*3/mm3 04/04/2025 2:56 PM EDT [facility] Eosinophils, Absolute 0.05 0.00 - 0.40 10*3/mm3 04/04/2025 2:56 PM EDT [facility] Basophils, Absolute [...] Fin al Result [facility]
[address] [place] [address], * (ABNORMAL) C-reactive Protein (04/04/2025 2:47 PM EDT) C-Reactive Protein 8.57(H) 0.00 - 0.50 mg/dL 04/04/2025 3:26 PM EDT [facility] Blood Venipuncture / Unknown 04/04/2025 2:47 PM EDT 04/04/2025 2:52 PM EDT [facility] BLOOD ORDERABLES Fin al Result Performing Organization Address City/[facility]/ZIP Co de Phone Number [facility]
[address] [place] [address], * (ABNORMAL) Sedimentation Rate (04/04/2025 2:47 PM EDT) Pathologist [facility] Sed Rate 51(H) 0 - 15 mm/hr 04/04/2025 3:06 PM EDT [facility] Blood Venipuncture / Unknown 04/04/2025 2:47 PM EDT 04/04/2025 2:52 PM EDT [facility] BLOOD ORDERABLES Fin al Result Performing Organization Address City/[facility] Co de Phone Number [facility]
[address] [place] [address], * Comprehensive Metabolic Panel (04/04/2025 2:47 PM EDT) Pathologist [facility] Glucose 90 65 - 99 mg/dL [...] - 10.5 mg/dL 04/04/2025 3:26 PM T [facility] Total Protein 7.3 6.0 - 8.5 g/dL 04/04/2025 3:26 PM EDT [facility] Albumin 4.1 3.5 - 5.2 g/dL 04/04/2025 3:26 PM T [facility] ALT (SGPT) 26 1 - 41 U/L 04/04/2025 3:26 PM [facility] AST (SGOT) 25 1 - 40 U/L 04/04/2025 3:26 PM T [facility] Alkaline Phosphatase 106 39 - 117 U/L 04/04/2025 3:26 PM T [facility] Total Bilirubin 1.0 0.0 - 1.2 mg/dL 04/04/2025 3:26 PM T [facility] Globulin 3.2 gm/dL 04/04/2025 3:26 PM [facility] Comment:Calculated Result A/G Ratio 1.3 g/dL 04/04/2025 3:26 PM [facility] BUN/Creatinine Ratio 19.5 7.0 - 25.0 04/04/2025 3:26 PM [facility] Anion Gap 10.7 5.0 - 15.0 mmol/L 04/04/2025 3:26 PM [facility] eGFR 102.5 >60.0 mL/min/1.7 3 04/04/2025 3:26 PM [facility] Blood Venipuncture / Unknown 04/04/2025 2:47 PM EDT 04/04/2025 2:52 PM EDT [facility] - 04/04/2025 3:26 PM [...] Fin al Result [facility]
[address] [place] [address], documented in this encounter Visit Diagnoses Diagnosis [...] BPA Driven Protocol Open Order & Select [facility] Electrolyte Replacement Protocol Algorithm to [...] BPA Driven Protocol Open Order & Select [facility] Electrolyte Replacement Protocol Algorithm to [...] Salazar, KELL)1943 (Given - Provider: Anahy Marcelino, GAS LEAK INSPECTOR HELPER)2129 (Canceled Entry - Provider: Anahy Marcelino G[employer] LEAK INSPECTOR HELPER - Comment: previously given) 0837 (Given - [...] Continuous Medication Order 04/09/2025 04/10/2025 04/11/2025 heparin [id number] units/250 mL (100 units/mL) in 0.45 % [...] (Not Given: See Alt - Provider: Shirley aHrt, LU)1508 (Not Given: See Alt - Provider: [...] Dillon RN) 0906 (Given - Provider: Shirley Hrat, LU)1508 (Given - Provider: Shirley Hart, LU) [...] BPA Driven Protocol Open Order & Select [facility] Electrolyte Replacement Protocol Algorithm to [...] documented as of this encounter Care Teams Child Care Supervisor Relationship Specialty Start Date End Date Provider, [place] [address] PCP - General 05/09/23 documented as of this encounter
--- OUTSIDE RECORDS SUMMARY | 2025-04-07 20:36 | XMS_ITS | Encounter Summary ---
Author Organization [facility] Address [address] [place] [address] Care Team Providers Care Neurophysiological Technician Name Role Phone Provider, No Known Primary Care Provider Unavail able Reason for Visit * Auth/Cert Specialty Diagnoses / Procedures Referred By Bulmaro muniz Referred To Contact Diagnoses Right BKA infection Referral ID Status Reason Start Date Expiration Date Visits Re quested Visits Authorized [id number] 1 1 Encounter Details Date Type Department Care Team (Late st Contact Info) Description 04/07/2025 8:36 PM EDT Anesthesia Event [facility] OR [address] [place] [address] Luci Alonso DO [address] [place] [address] Anesthesia Record Procedure Summary Procedure Name Responsible [...] Recorded In the past 12 months has [employer], gas, oil, or water [employer] threatened to shut off services in your [...] or training? Not on file Preferred Language Italian 04/07/2025 Sex and Gender Information Value Date [...] PACU on O2NC, breathing comfortably. Report to PROCESS DEVELOPMENT ASSOCIATE at bedside. VSS. 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 ) intravenous induction Anesthetic plan, risks, benefits, and alternatives have been provided, discussed and informed consent has been obtained with: patient. Plan discussed with INSTRUMENTAL MUSIC TEACHER. CODE STATUS: Code Status (Patient has [...] documented as of this encounter Care Teams Neurophysiological Technician Relationship Specialty Start Date End Date Provider, No Known [facility] [place] [address] PCP - General 05/09/23 documented as of this encounter
--- OUTSIDE RECORDS SUMMARY | 2025-04-08 14:45 | XMS_ITS | Encounter Summary ---
[facility] Address [address] [place] [address] Care Team Providers Care Parachute Taper Name Role Phone Provider, No Known Primary Care Provider Unavail able Reason for Visit * Reason Comments Leg Swelling * Auth/Cert Specialty Diagnoses / Procedures Referred By Contac t Referred To Contact Diagnoses Right BKA infection Referral ID Status Reason Start Date Expiration Date Visits Re quested Visits Authorized [id number] 1 1 Encounter Details Date Type Department Care Team (Late st Contact Info) Description 04/08/2025 2:45 PM EDT - 04/08/2025 4:04 PM EDT Surgery [facility] OR [address] [place] [address] Sushil Dean Jr., MD [address] [place] [address] [address] [id number] LEG DEBRIDEMENT AND IRRIGATION Social History Tobacco Use Types Packs/Day Years Used Date Smoking Tobacco: Never Smokeless Tobacco: Never Tobacco Cessation:Counseling Given: Not Answered Alcohol Use Standard Drinks/Week Comments Not Currently 0 (1 standard drink = 0.6 oz pur e alcohol) [facility] Utilities Answer Date Recorded In the past 12 months has [employer] electric, gas, oil, or water company threatened [...] or training? Not on file Preferred Language Russian 04/07/2025 Sex and Gender Information Value Date [...] 2:25 PM EDT Cherri Grimm RN * [place] Suicide Severity Rating Scale (Screener/Recent Self-Report) Question [...] from the original note were not included. [facility] Medicine Services DISCHARGE SUMMARY Patient [...] Date/Time Wound Culture - Swab, Leg, Right [[id number]] (Abnormal) (Susceptibility) Collected: 04/07/252106 Lab Status: Final [...] Units Date/Time FL C Arm During Surgery [[id number]] Resulted: 04/07/252137 Updated: 04/07/252137 Narrative: This procedure was auto-finalized with no dictation required. MRI Tibia Fibula Right With & Without Contrast [[id number]] Collected: 04/07/25 0938 Updated: 04/07/25 1001 Narrative: [...] Buenrostro 04/07/2025 9:58 AM EDT Workstation ID: [id number] MRI Tibia Fibula Right With & Without Contrast [[id number]] Collected: 04/04/252256 Updated: 04/04/252302 Narrative: MRI TIBIA [...] represent a small area of phlegmonous change ([id number] image 10) measuring approximately 1.6 cm which [...] MD 04/04/2025 11:00 PM EDT Workstation ID: [id number] Pending Labs Order Current Status Fungus Culture [...] Male) Date of 1980 Social Security Number [id number] [place] [address] [place] [address] Jew Unknown Marital Status Unknown Admission Date 04/04/2025 Admission Type Emergency Admitting Provider Jadyn Richardson DO Attending Provider Jadyn Richardson DO Department, Room/Bed [facility] 5G, S565/1 Discharge Date Discharge [...] [place] [id number] Payor Plan Address Payor Plan Phone Number Payor Plan Fax Number Effective Dates [employer] [address] [address] 08/10/2023 - None Entered 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 Technician (Rel.) Home Phone Work Phone Mobile Phone Avril Dennis (Spouse) -- -- [phone] Robert Hackett (Relative) -- -- [phone] [facility] 5G [address] [facility] [address] Patient: ROOM: [facility] Won Dennis [address] [place] [place] [address] : 1980 SSN: [id number] Sex: M PCP: Provider, No Known Emergency Contact Information Name Relation Home Work Mobile Avril Dennis Spouse [phone] Other Contacts Name Relation Home Work Mobile Robert Hackett Relative [phone] INSURANCE PAYOR PLAN GROUP # SUBSCRIBER ID Primary: Secondary: MEDICARE [employer] [id number] Admitting Diagnosis: Right BKA infection [T87.43] Order Date: Apr 09, 2025 Case Management Health Psychologist Consult (Order ID: [id number]) Diagnosis: Priority: Routine Expected Date: Expiration Date: [...] INFECTIOUS DISEASE Progress Note Won Dennis 1980 [id number] Date of Consult: 04/10/2025 Admission Date: 04/04/2025 [...] which prompted him to seek treatment at [facility]. He is known to Dr. [...] 05/09/25. HDS, on Heparin gtt. Currently [facility] has been asked to manage [...] Jr., MD, 20 mg at 04/09/25906 heparin 67187 units/250 mL (100 units/mL) in 0.45 % [...] Units Date/Time FL C Arm During Surgery [[id number]] Resulted: 04/07/252137 Updated: 04/07/252137 Narrative: This procedure was auto-finalized with no dictation required. MRI Tibia Fibula Right With & Without Contrast [[id number]] Collected: 04/07/2538 Updated: 04/07/25 1001 Narrative: MRI [...] Buenrostro 04/07/2025 9:58 AM EDT Workstation ID: [id number] Impression: Recurrent Right BKA stump abscess/cellulitis- this [...] discussed his disposition with the pharmacist at [facility] today. I will sign off Outpatient orders: 1. Outpatient intravenous antibiotic therapy: Daptomycin 800 mg IV daily to be supplied by [facility] 2. Home health to perform [...] Date/Time Wound Culture - Swab, Leg, Right [[id number]] (Abnormal) (Susceptibility) Collected: 04/07/252106 Lab Status: Final [...] Row Name 04/06/25 1143 Sit-Stand Transfer Sit-Stand Butler (Transfers) modified independence - Comment, (Sit-Stand Transfer) Pt stood from recliner. Not holding onto walker, pt able to pull his pants up while balancing on his one leg. -LM Row Name 04/06/25 1143 Gait/Stairs (Locomotion) Butler Level (Gait) modified independence - Distance in [...] bilateral lower extremity ROM WFL -LM [facility] Name 04/06/25 1145 Strength Comprehensive (MMT) General Manual Muscle Testing (MMT) Assessment no strength deficits identified BLEs -LM [facility] Name 04/06/25 1145 Balance Balance [...] at d/c. PT signing off. -LM [facility] Name 04/06/25 1146 Therapy Assessment/Plan (PT) Criteria for Skilled Interventions Met (PT) no;no problems identified which require skilled intervention -LM Therapy Frequency (PT) evaluation only -LM Predicted Duration of Therapy Intervention (PT) Eval Only -LM [facility] Name 04/06/25 1146 Vital Signs Pretreatment Heart Rate (beats/min) 86 -LM Posttreatment Heart Rate (beats/min) 96 -LM Pre SpO2 (%) 95 -LM O2 Delivery Pre Treatment room air -LM Post SpO2 (%) 96 -LM O2 Delivery Post Treatment room air -LM Pre Patient Position Sitting -LM Post Patient Position Sitting -LM [facility] Name 04/06/25 1146 Positioning and [...] Nurse Physical Therapy Education Title: PT OT SERVICE LIAISON REPRESENTATIVE Therapies (Done) Topic: Physical Therapy (Done) Point: Mobility training (Done) Learning Progress Summary Patient Acceptance, E, VU,DU by at 04/06/2025 1147 Point: Precautions (Done) Learning Progress Summary Patient Acceptance, E, VU,DU by at 04/06/2025 1147 User Cabrera Initials Effective Dates Name Provider Type [facility] 01/24/25 - Susan Cavazos, PT Physical [...] Description Service Date Service Provider Modifiers Qty [id number] PT EVAL LOW COMPLEXITY 3 04/06/2025 Susan [...] mg Daily 04/05/2025 -- Route: Oral heparin 99990 units/250 mL (100 units/mL) in 0.45 % [...] Dean MD April 21 vs April 22 [facility] [address], [address] [facility], [address] Please schedule at [phone] VONDA Garcia 04/11/25 08:32 EDT Cosigned by Sushil Dean Jr., MD at 04/19/2025 10:33 AM EDT Associated attestation - Sushil Dean Jr., MD - 04/19/2025 10:33 AM EDT I have reviewed this documentation and agree. * Rosario Hill APRN - 04/10/2025 1:24 PM EDT Images from the original note were not included. [facility] Medicine Services PROGRESS NOTE Patient [...] Date/Time Wound Culture - Swab, Leg, Right [[id number]] (Abnormal) (Susceptibility) Collected: 04/07/252106 Lab Status: Final [...] mg Daily 04/05/2025 -- Route: Oral heparin 51917 units/250 mL (100 units/mL) in 0.45 % [...] Dean MD April 21 vs April 22 [facility] [address] [facility], [address] [facility], [address] Please schedule at [phone] VONDA Garcia 04/10/25 09:01 EDT Cosigned by Sushil Dean Jr., MD at 04/19/2025 10:33 AM EDT Associated attestation - Sushil Dean Jr., MD - 04/19/2025 10:33 AM EDT I have reviewed this documentation and agree. * Carlton Mead MD - 04/10/2025 7:38 AM EDT Images from the original note were not included. INFECTIOUS DISEASE Progress Note Won Dennis 1980 [id number] Date of Consult: 04/10/2025 Admission Date: 04/04/2025 [...] which prompted him to seek treatment at [facility]. He is known to Dr. [...] 05/09/25. HDS, on Heparin gtt. Currently [facility] has been asked to manage [...] IRRIGATION; Surgeon: Sushil Dean Jr., MD; Location: [facility]; Service: Orthopedics; Laterality: Right; PLACEMENT OF WOUND VAC Right 04/07/2025 Procedure: WOUND VACUUM ASSISTED CLOSURE; Surgeon: Sushil Dean Jr., MD; Location: [facility]; Service: Orthopedics; Laterality: Right; WOUND CLOSURE [...] Jr., MD, 20 mg at 04/09/25906 heparin 50776 units/250 mL (100 units/mL) in 0.45 % [...] 500 mL Status: Discontinued Ordering Provider: Sushil eDan Jr., MD 15 mg/kg ?? 134 kg [...] Units Date/Time FL C Arm During Surgery [[id number]] Resulted: 04/07/252137 Updated: 04/07/252137 Narrative: This procedure was auto-finalized with no dictation required. MRI Tibia Fibula Right With & Without Contrast [[id number]] Collected: 04/07/25937 Updated: 04/07/25 100 Narrative: MRI [...] Buenrostro 04/07/2025 9:58 AM EDT Workstation ID: [id number] Impression: Recurrent Right BKA stump abscess/cellulitis- this [...] discussed his disposition with the pharmacist at [facility] today. I will sign off Outpatient orders: 1. Outpatient intravenous antibiotic therapy: Daptomycin 800 mg IV daily to be supplied by [facility] 2. Home health to perform [...] MD 04/10/2025 07:38 EDT * Larisa Hamilton [facility] - 04/10/2025 7:17 AM EDT Pharmacy [...] from the original note were not included. [facility] Medicine Services PROGRESS NOTE Patient [...] Date/Time Wound Culture - Swab, Leg, Right [[id number]] (Abnormal) Collected: 04/07/252106 Lab Status: Preliminary result [...] Jason Álvarez DO 04/09/25 * Larisa Hamilton [facility] - 04/09/2025 11:36 AM EDT Pharmacy [...] mg Daily 04/05/2025 -- Route: Oral heparin 74467 units/250 mL (100 units/mL) in 0.45 % [...] in 2 weeks for incision check, radiographs [facility] [address], [address] [facility], [address] Please schedule at [phone] VONDA Garcia 04/09/25 09:18 EDT Cosigned by Sushil Dean Jr., MD at 04/19/2025 10:33 AM EDT Associated attestation - Sushil Dean Jr., MD - 04/19/2025 10:33 AM EDT I have reviewed this documentation and agree. * Carlton Mead MD - 04/09/2025 8:25 AM EDT Images from the original note were not included. INFECTIOUS DISEASE Progress Note Won Dennis 1980 [id number] Date of Consult: 04/09/2025 Admission Date: 04/04/2025 [...] which prompted him to seek treatment at [facility]. He is known to Dr. [...] 05/09/25. HDS, on Heparin gtt. Currently [facility] has been asked to manage [...] Surgeon: Sushil Dean Jr., MD; [facility]; Service: Orthopedics; Laterality: Right; PLACEMENT OF WOUND VAC Right 04/07/2025 Procedure: WOUND VACUUM ASSISTED CLOSURE; Surgeon: Sushil Dean Jr., MD; Location: [facility] OR; Service: Orthopedics; Laterality: Right; History reviewed. [...] MD, 20 mg at 04/08/25 0800 heparin 62439 units/250 mL (100 units/mL) in 0.45 % [...] Units Date/Time FL C Arm During Surgery [[id number]] Resulted: 04/07/252137 Updated: 04/07/252137 Narrative: This procedure was auto-finalized with no dictation required. MRI Tibia Fibula Right With & Without Contrast [[id number]] Collected: 04/07/25 0938 Updated: 04/07/25 1001 Narrative: [...] Chitra 04/07/2025 9:58 AM EDT Workstation ID: [id number] Impression: Recurrent Right BKA stump abscess/cellulitis- this [...] for this complex patient. Carlton Maed MD 04/09/2025 08:25 EDT * PreetiJason, DO - 04/08/2025 1:47 PM EDT Images from the original note were not included. [facility] Medicine Services PROGRESS NOTE Patient [...] Buenrostro 04/07/2025 9:58 AM EDT Workstation ID: [id number] I have personally reviewed the therapy plans: [...] Jason Álvarez, DO 04/08/25 * Hamilton, Larisa, [facility] - 04/08/2025 11:48 AM EDT Pharmacy [...] mg Daily 04/05/2025 -- Route: Oral heparin 35798 units/250 mL (100 units/mL) in 0.45 % [...] INFECTIOUS DISEASE Progress Note Won Dennis 1980 [id number] Date of Consult: 04/08/2025 Admission Date: 04/04/2025 [...] which prompted him to seek treatment at [facility]. He is known to Dr. [...] 05/09/25. HDS, on Heparin gtt. Currently [facility] has been asked to manage [...] Sushil Dean Jr., MD; Location: [facility] OR; Service: Orthopedics; Laterality: Right; PLACEMENT OF WOUND VAC Right 04/07/2025 Procedure: WOUND VACUUM ASSISTED CLOSURE; Surgeon: Sushil Dean Jr., MD; Location: [facility] OR; Service: Orthopedics; Laterality: Right; History reviewed. [...] Oral, Q6H PRN, 500 mg at 04/06/25 2984 OR acetaminophen (TYLENOL) 160 MG/5ML oral solution [...] mg, 0.4 mg, Intravenous, Q5 Min PRN, Suhsil Dean Jr., MD ferrous sulfate tablet 325 mg, 325 mg, Oral, BID, Sushil Dean Jr., MD, 325 mg at 04/07/25950 furosemide (LASIX) tablet 20 mg, 20 mg, Oral, Daily, Sushil Dean Jr., MD, 20 mg at 04/07/25950 heparin 97273 units/250 mL (100 units/mL) in 0.45 % [...] ([facility]) Ordering Provider: Mario rCowley, DO 20 mg/kg ?? 134 kg over [...] Units Date/Time FL C Arm During Surgery [[id number]] Resulted: 04/07/252137 Updated: 04/07/252137 Narrative: This procedure was auto-finalized with no dictation required. MRI Tibia Fibula Right With & Without Contrast [[id number]] Collected: 04/07/25 0938 Updated: 04/07/25 1001 Narrative: [...] Buenrostro 04/07/2025 9:58 AM EDT Workstation ID: [id number] Impression: Right BKA stump cellulitis- s/p BKA with multiple surgical interventions with Known MRSA 05/09/2025. (Treated by ID in [place] [facility]). Dr. Torres treated him with [...] from the original note were not included. [facility] Medicine Services PROGRESS NOTE Patient [...] Buenrostro 04/07/2025 9:58 AM EDT Workstation ID: [id number] I have personally reviewed the therapy plans: [...] Jason DO Preeti 04/07/25 * Larisa Hamilton, [facility] - 04/07/2025 11:56 AM EDT Pharmacy [...] INFECTIOUS DISEASE Progress Note Won Dennis 1980 [id number] Date of Consult: 04/07/2025 Admission Date: 04/04/2025 [...] which prompted him to seek treatment at [facility]. He is known to Dr. [...] 05/09/25. HDS, on Heparin gtt. Currently [facility] has been asked to manage [...] MD, 20 mg at 04/06/25 0900 heparin 07730 units/250 mL (100 units/mL) in 0.45 % NaCl infusion, 18 Units/kg/hr, Intravenous, Titrated, Cherri Beatty, [facility], Last Rate: 24.1 mL/hr at 04/07/258, [...] With & Without Contrast - In process [[id number]] Resulted: 04/07/25828 Updated: 04/07/25828 This result has not been signed. Information might be incomplete. MRI Tibia Fibula Right With & Without Contrast [[id number]] Collected: 04/04/252256 Updated: 04/04/253 Narrative: MRI TIBIA [...] represent a small area of phlegmonous change (mfocbw28 image 10) measuring approximately 1.6 cm which [...] MD 04/04/2025 11:00 PM EDT Workstation ID: [id number] Impression: Right BKA stump cellulitis- s/p BKA with multiple surgical interventions with Known MRSA 05/09/2025. (Treated by ID in [place] [facility]). Dr. Torres treated him with [...] mg Daily 04/05/2025 -- Route: Oral heparin 98536 units/250 mL (100 units/mL) in 0.45 % [...] MD 04/07/25 06:07 EDT * Cherri Beatty [facility] - 04/06/2025 1:47 PM EDT Pharmacy [...] from the original note were not included. [facility] Medicine Services PROGRESS NOTE Patient [...] MD 04/04/2025 11:00 PM EDT Workstation ID: [id number] I have personally reviewed the therapy plans: [...] mg Daily 04/05/2025 -- Route: Oral heparin 07150 units/250 mL (100 units/mL) in 0.45 % [...] INFECTIOUS DISEASE follow up. Won Dennis 1980 [id number] Date of Consult: 04/06/2025 Admission Date: 04/04/2025 [...] which prompted him to seek treatment at [facility]. He is known to Dr. [...] 05/09/25. HDS, on Heparin gtt. Currently [facility] has been asked to manage [...] MD, 20 mg at 04/06/25 0900 heparin 51208 units/250 mL (100 units/mL) in 0.45 % NaCl infusion, 18 Units/kg/hr, Intravenous, Titrated, Cherri Beatty [facility], Last Rate: 24.1 mL/hr at 04/06/25 [...] Tibia Fibula Right With & Without Contrast [[id number]] Collected: 04/04/252256 Updated: 04/04/252302 Narrative: MRI TIBIA [...] represent a small area of phlegmonous change ([id number] image 10) measuring approximately 1.6 cm which [...] MD 04/04/2025 11:00 PM EDT Workstation ID: [id number] Impression: Right BKA stump cellulitis- s/p BKA with multiple surgical interventions with Known MRSA 05/09/2025. (Treated by ID in [place] [facility]). Dr. Torres treated him with [...] from the original note were not included. [facility] Services PROGRESS NOTE Patient [...] MD 04/04/2025 11:00 PM EDT Workstation ID: [id number] I have personally reviewed the therapy plans: [...] from the original note were not included. [facility] Services HISTORY AND PHYSICAL [...] MD 04/04/2025 11:00 PM EDT Workstation ID: [id number] Assessment & Plan Assessment & Plan Won [...] EDTAssociated Order(s): IP CONSULT TO ORTHOPEDIC SURGERY [facility], [facility] [address] [address] Orthopedic Consult Patient: Won Dennis Date of Admission: 04/04/2025 4:10 PM Date of : 1980 Attending Physician: Jason Álvarez DO Consulting Physician: Sushil Dean Jr, MD Chief Complaint: 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 male admitted to [facility] with Right BKA infection [T87.43]. He [...] was evaluated in the emergency department in [place], was discharged with instructions for follow-up. He [...] tablet by mouth Daily. 04/03/2025 Morning Lactobacillus-Inulin ([facility]) capsule Take 200 mg by mouth [...] MD 04/04/2025 11:00 PM EDT Workstation ID: [id number] Assessment: Right BKA infection 44-year-old male with [...] DISEASE CONSULT/INITIAL HOSPITAL VISIT Won Dennis 1980 [id number] Date of Consult: 04/05/2025 Admission Date: 04/04/2025 [...] which prompted him to seek treatment at [facility]. He is known to Dr. [...] 05/09/25. HDS, on Heparin gtt. Currently [facility] has been asked to manage [...] Leonora Shepherd MD, 40 mg at 04/04/25 4851 sennosides-docusate (PERICOLACE) 8.6-50 MG per tablet 2 [...] MD, 20 mg at 04/05/25 09 heparin 36092 units/250 mL (100 units/mL) in 0.45 % [...] Leonora Shepherd MD, 10 mg at 04/04/25 2712 Pharmacy to Dose Heparin, , Not Applicable, [...] Tibia Fibula Right With & Without Contrast [[id number]] Collected: 04/04/252256 Updated: 04/04/252302 Narrative: MRI TIBIA [...] represent a small area of phlegmonous change ([id number] image 10) measuring approximately 1.6 cm which [...] MD 04/04/2025 11:00 PM EDT Workstation ID: [id number] Impression: Right BKA stump cellulitis- s/p BKA with multiple surgical interventions with Known MRSA 05/09/2025. (Treated by ID in [place] [facility]). Dr. Torres treated him with [...] MD - 04/08/2025 3:51 PM EDT [facility] OPERATIVE REPORT PATIENT NAME: Won Dennis DATE OF : 1980 PREOP DIAGNOSIS: Right Right below-knee amputation infection POSTOP DIAGNOSIS: Same. PROCEDURE: Right Right 84728: Secondary closure below-knee amputation SURGEON: Sushil Dean MD OPERATIVE TEAM: Router Operator Radial: Susi Grullon RN Scrub Person: Mary Paredes Scrub Person Extra: Hortencia Toribio Other: Katt Gotti RN; Charis Neville RN ANESTHETIST: Anesthesiologist: Ulises Hoffman MD CHEMICAL LAB TECHNICIAN: Stan Casillas CRNA Student Nurse Mule Driver: Karol Albert SRNA ANESTHESIA: Choice ESTIMATED [...] CULTURE (Canceled) Sushil Dean Jr., MD 04/08/25 1418 Description: RIGHT LEG DEEP WOUND FOR CULTURE [...] Jr., MD - 04/07/2025 9:03 PM EDT [facility], [place] [address] OPERATIVE REPORT PATIENT NAME: Won Dennis DATE OF : 1980 PREOP DIAGNOSIS: Right Right below knee amputation stump infection POSTOP DIAGNOSIS: Same. PROCEDURE: Right Right 76643: Incision and drainage of surgical site infection 78762: Debridement of skin, subcutaneous tissue, muscle 33428: Wound vacuum-assisted closure SURGEON: Sushil Dean MD OPERATIVE TEAM: Router Operator Radial: Anum Sanchez RN Scrub Person: Hortencia Toribio; Gerald Ivey INSTALLATION ENGINEER: Anesthesiologist: Luci Alonso DO ANESTHESIA: General [...] ago swellling of the area. seen at [facility] yesterday for CT and US, [...] this chart in the absence of a doctor of naturopathic medicine. No orders to display RADIOLOGY: [x] Radiologist's [...] with KELLEE and given themhis Medicare number [id number], she sent it to Admission. DEBRA spoke with Kreri, with [facility], and explained that [...] changes and lab work. DEBRA called [facility] they can accept patient and start him. He is known for their facility. The Facility will need to run it through his insurance first. CM faxed the orders over to [facility] at [phone]. CM will follow up with them tomorrow [...] EDT Continued Stay Note [facility] Patient Name: Won Dennis Today's Date: 04/09/2025 Admit Date: 04/04/2025 Plan: Home Discharge Plan Row Name 04/09/25 1311 Plan Plan Home Patient/Family in Agreement with Plan yes Plan Comments CM spoke with patient at bedside today. Wheelchair from [employer] is at bedside. Patient getting PICC line [...] with family Patient/Family Anticipated Services at [facility] case managermanager trade Anticipated family or friend will provide Discharge Needs Assessment Equipment Currently Used at Home glucometer;shower chair;pulse ox;bp cuff;prosthesis;crutches Equipment Needed After Discharge none Discharge Plan Row Name 04/07/25 1144 Plan Plan Home Patient/Family in Agreement with Plan yes Plan Comments CM spoke with patient at bedside today. Patient lives with and his 5 kids in [facility]. 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 He has walker, cane, shower chair, and crutches. He requested a wheelchair for home. CM will order [facility]. He is not current with home [...] General Information Arrived From hospital Preferred Language Russian Functional Status Row Name 04/07/25 1143 Functional [...] 3:4 0 PM EDT Right BKA infection NM SEC ABDOMINAL WALL SUTURE EVISCERATION/DEHSN 04/08/2025 3:20 [...] CBC Auto Differential (04/11/2025 3:40 AM EDT) [facility] WBC 7.87 3.40 - 10.80 10*3/mm3 04/11/2025 4:02 AM EDT [facility] RBC 4.70 4.14 - 5.80 10*6/mm3 04/11/2025 4:02 AM [facility] Hemoglobin 12.8(L) 13.0 - 17.7 g/dL 04/11/2025 4:02 AM [facility] Hematocrit 40.5 37.5 - 51.0 % 04/11/2025 4:02 AM [facility] MCV 86.2 79.0 - 97.0 fL 04/11/2025 4:02 AM [facility] MCH 27.2 26.6 - 33.0 pg 04/11/2025 4:02 AM [facility] MCHC 31.6 31.5 - 35.7 g/dL 04/11/2025 4:02 AM [facility] RDW 12.9 12.3 - 15.4 % 04/11/2025 4:02 AM [facility] RDW-SD 40.5 37.0 - 54.0 fl 04/11/2025 4:02 AM [facility] MPV 9.2 6.0 - 12.0 fL 04/11/2025 4:02 AM [facility] Platelets 267 140 - 450 10*3/mm3 04/11/2025 4:02 AM [facility] Neutrophil % 59.5 42.7 - 76.0 % 04/11/2025 4:02 AM [facility] Lymphocyte % 26.3 19.6 - 45.3 % 04/11/2025 4:02 AM [facility] Monocyte % 9.3 5.0 - 12.0 % 04/11/2025 4:02 AM [facility] Eosinophil % 4.1 0.3 - 6.2 % 04/11/2025 4:02 AM [facility] Basophil % 0.4 0.0 - 1.5 % 04/11/2025 4:02 [facility] Immature Grans % 0.4 0.0 - 0.5 % 04/11/2025 4:02 AM EDT [facility] Neutrophils, Absolute 4.69 1.70 - 7.00 10*3/mm3 04/11/2025 4:02 AM EDT [facility] Lymphocytes, Absolute 2.07 0.70 - 3.10 10*3/mm3 04/11/2025 4:02 AM EDT [facility] Monocytes, Absolute 0.73 0.10 - 0.90 10*3/mm3 04/11/2025 4:02 AM EDT [facility] Eosinophils, Absolute 0.32 0.00 - 0.40 10*3/mm3 04/11/2025 4:02 AM EDT [facility] Basophils, Absolute 0.03 0.00 - 0.20 10*3/mm3 04/11/2025 4:02 AM EDT [facility] Immature Grans, Absolute 0.03 0.00 - 0.05 10*3/mm3 04/11/2025 4:02 AM EDT [facility] nRBC 0.0 0.0 - 0.2 /100 WBC 04/11/2025 4:02 AM EDT [facility] Blood Venipuncture / Unknown 04/11/2025 3:40 AM EDT 04/11/2025 3:59 AM EDT us Sushil Dean Jr., MD LAB BLOOD ORDERABLES Fi nal Result [facility]
[address] [place] [address], * (ABNORMAL) Comprehensive Metabolic Panel (04/11/2025 3:40 AM EDT) Glucose 108(H) 65 - 99 mg/dL 04/11/2025 4:19 AM EDT [facility] BUN 12.5 6.0 - 20.0 mg/dL 04/11/2025 4:19 AM EDT [facility] Creatinine 0.68(L) 0.76 - 1.27 mg/dL 04/11/2025 4:19 AM [facility] Sodium 140 136 - 145 mmol/L 04/11/2025 4:19 AM [facility] Potassium 3.8 3.5 - 5.2 mmol/L 04/11/2025 4:19 AM [facility] Chloride 105 98 - 107 mmol/L 04/11/2025 4:19 AM [facility] CO2 28.2 22.0 - 29.0 mmol/L 04/11/2025 4:19 AM [facility] Calcium 8.2(L) 8.6 - 10.5 mg/dL 04/11/2025 4:19 AM [facility] Total Protein 6.1 6.0 - 8.5 g/dL 04/11/2025 4:19 AM [facility] Albumin 3.1(L) 3.5 - 5.2 g/dL 04/11/2025 4:19 AM [facility] ALT (SGPT) 52(H) 1 - 41 U/L 04/11/2025 4:19 AM [facility] AST (SGOT) 40 1 - 40 U/L 04/11/2025 4:19 AM [facility] Alkaline Phosphatase 99 39 - 117 U/L 04/11/2025 4:19 AM [facility] Total Bilirubin 0.2 0.0 - 1.2 mg/dL 04/11/2025 4:19 AM [facility] Globulin 3.0 gm/dL 04/11/2025 4:19 AM [facility] Comment:Calculated Result A/G Ratio 1.0 g/dL 04/11/2025 4:19 AM [facility] BUN/Creatinine Ratio 18.4 7.0 - 25.0 04/11/2025 4:19 AM [facility] Anion Gap 6.8 5.0 - 15.0 mmol/L 04/11/2025 4:19 AM [facility] eGFR 117.5 >60.0 mL/min/1.7 3 04/11/2025 4:19 AM EDT [facility] Blood Venipuncture / [...] Hill APRN LAB BLOOD ORDERABLES Final Result [facility]
[address] [place] [address], * (ABNORMAL) CBC Auto Differential (04/10/2025 3:46 AM EDT) WBC 9.60 3.40 - 10.80 10*3/mm3 04/10/2025 3:56 AM EDT [facility] RBC 4.67 4.14 - 5.80 10*6/mm3 04/10/2025 3:56 AM EDT [facility] Hemoglobin 12.9(L) 13.0 - 17.7 g/dL 04/10/2025 3:56 AM EDT [facility] Hematocrit 40.1 37.5 - 51.0 % 04/10/2025 3:56 AM EDT [facility] MCV 85.9 79.0 - 97.0 fL 04/10/2025 3:56 AM EDT [facility] MCH 27.6 26.6 - 33.0 pg 04/10/2025 3:56 [facility] MCHC 32.2 31.5 - 35.7 g/dL 04/10/2025 3:56 AM EDT [facility] RDW 12.9 12.3 - 15.4 % 04/10/2025 3:56 AM [facility] RDW-SD 40.5 37.0 - 54.0 fl 04/10/2025 3:56 AM EDT [facility] MPV 9.5 6.0 - 12.0 fL 04/10/2025 3:56 AM EDT [facility] Platelets 227 140 - 450 10*3/mm3 04/10/2025 3:56 AM [facility] Neutrophil % 59.1 42.7 - 76.0 % 04/10/2025 3:56 AM [facility] Lymphocyte % 29.0 19.6 - 45.3 % 04/10/2025 3:56 AM [facility] Monocyte % 8.1 5.0 - 12.0 % 04/10/2025 3:56 AM [facility] Eosinophil % 3.2 0.3 - 6.2 % 04/10/2025 3:56 AM [facility] Basophil % 0.4 0.0 - 1.5 % 04/10/2025 3:56 AM [facility] Immature Grans % 0.2 0.0 - 0.5 % 04/10/2025 3:56 AM [facility] Neutrophils, Absolute 5.67 1.70 - 7.00 10*3/mm3 04/10/2025 3:56 AM [facility] Lymphocytes, Absolute 2.78 0.70 - 3.10 10*3/mm3 04/10/2025 3:56 AM [facility] Monocytes, Absolute 0.78 0.10 - 0.90 10*3/mm3 04/10/2025 3:56 AM [facility] Eosinophils, Absolute 0.31 0.00 - 0.40 10*3/mm3 04/10/2025 3:56 AM EDT [facility] Basophils, Absolute 0.04 0.00 - 0.20 10*3/mm3 04/10/2025 3:56 AM EDT [facility] Immature Grans, Absolute 0.02 0.00 - 0.05 10*3/mm3 04/10/2025 3:56 AM EDT [facility] nRBC 0.0 0.0 - 0.2 /100 WBC 04/10/2025 3:56 AM EDT [facility] Blood Venipuncture / Unknown 04/10/2025 3:46 AM EDT 04/10/2025 3:53 AM EDT us Jason Álvarez DO LAB BLOOD ORDERABLES Final Resul t [facility]
[address] [place] [address], * (ABNORMAL) Basic Metabolic Panel (04/10/2025 3:46 AM EDT) Glucose 125(H) 65 - 99 mg/dL 04/10/2025 4:20 AM EDT [facility] BUN 15.9 6.0 - 20.0 mg/dL 04/10/2025 4:20 AM EDT [facility] Creatinine 0.77 0.76 - 1.27 mg/dL 04/10/2025 4:20 AM EDT [facility] Sodium 137 136 - 145 mmol/L 04/10/2025 4:20 AM EDT [facility] Potassium 3.9 3.5 - 5.2 mmol/L 04/10/2025 4:20 AM EDT [facility] Chloride 102 98 - 107 mmol/L 04/10/2025 4:20 AM EDT [facility] CO2 26.9 22.0 - 29.0 mmol/L 04/10/2025 4:20 AM EDT [facility] Calcium 7.9(L) 8.6 - 10.5 mg/dL 04/10/2025 4:20 AM EDT [facility] BUN/Creatinine Ratio 20.6 7.0 - 25.0 04/10/2025 4:20 AM EDT [facility] Anion Gap 8.1 5.0 - 15.0 mmol/L 04/10/2025 4:20 AM EDT [facility] eGFR 113.2 >60.0 mL/min/1.7 3 04/10/2025 4:20 AM EDT [facility] Blood Venipuncture / Unknown 04/10/2025 3:46 AM EDT 04/10/2025 3:52 AM EDT Narrative [facility] - 04/10/2025 4:20 AM EDT [...] DO LAB BLOOD ORDERABLES Final Resul t [facility]
[address] [place] [address], * Heparin Anti-Xa (04/10/2025 3:46 AM EDT) Heparin Anti-Xa (UFH) 0.35 0.30 - 0.70 IU/ml 04/10/2025 4:23 AM EDT [facility] Blood Venipuncture / Unknown 04/10/2025 3:46 AM EDT 04/10/2025 3:53 AM EDT Larisa Hamilton [facility] LAB BLOOD ORDERABLES Final R esult [facility]
[address] [place] [address], * Heparin Anti-Xa (04/09/2025 10:05 AM EDT) Pathologist [facility] Heparin Anti-Xa (UFH) 0.36 0.30 - 0.70 IU/ml 04/09/2025 11:12 AM EDT [facility] Blood Venipuncture / Unknown 04/09/2025 10:05 AM EDT 04/09/2025 10:47 AM EDT Larisa Hamilton [facility] LAB BLOOD ORDERABLES Final R esult [facility]
[address] [place] [address], * (ABNORMAL) CBC Auto Differential (04/09/2025 4:18 AM EDT) Pathologist [facility] WBC 11.00(H) 3.40 - 10.80 10*3/mm3 04/09/2025 4:50 AM EDT [facility] RBC 4.70 4.14 - 5.80 10*6/mm3 04/09/2025 4:50 AM EDT [facility] Hemoglobin 13.0 13.0 - 17.7 g/dL 04/09/2025 4:50 AM EDT [facility] Hematocrit 40.4 37.5 - 51.0 % 04/09/2025 4:50 AM EDT [facility] MCV 86.0 79.0 - 97.0 fL 04/09/2025 4:50 AM EDT [facility] MCH 27.7 26.6 - 33.0 pg 04/09/2025 4:50 AM EDT [facility] MCHC 32.2 31.5 - 35.7 g/dL 04/09/2025 4:50 AM EDT [facility] RDW 12.8 12.3 - 15.4 % 04/09/2025 4:50 AM [facility] RDW-SD 39.9 37.0 - 54.0 fl 04/09/2025 4:50 AM [facility] MPV 10.0 6.0 - 12.0 fL 04/09/2025 4:50 AM [facility] Platelets 211 140 - 450 10*3/mm3 04/09/2025 4:50 AM [facility] Neutrophil % 74.8 42.7 - 76.0 % 04/09/2025 4:50 AM [facility] Lymphocyte % 15.4(L) 19.6 - 45.3 % 04/09/2025 4:50 AM [facility] Monocyte % 8.5 5.0 - 12.0 % 04/09/2025 4:50 AM [facility] Eosinophil % 0.6 0.3 - 6.2 % 04/09/2025 4:50 AM [facility] Basophil % 0.4 0.0 - 1.5 % 04/09/2025 4:50 AM [facility] Immature Grans % 0.3 0.0 - 0.5 % 04/09/2025 4:50 AM [facility] Neutrophils, Absolute 8.23(H) 1.70 - 7.00 10*3/mm3 04/09/2025 4:50 AM [facility] Lymphocytes, Absolute 1.69 0.70 - 3.10 10*3/mm3 04/09/2025 4:50 AM [facility] Monocytes, Absolute 0.94(H) 0.10 - 0.90 10*3/mm3 04/09/2025 4:50 AM [facility] Eosinophils, Absolute 0.07 0.00 - 0.40 10*3/mm3 04/09/2025 4:50 AM [facility] Basophils, Absolute 0.04 0.00 - 0.20 10*3/mm3 04/09/2025 4:50 AM EDT [facility] Immature Grans, Absolute 0.03 0.00 - 0.05 10*3/mm3 04/09/2025 4:50 AM EDT [facility] nRBC 0.0 0.0 - 0.2 /100 WBC 04/09/2025 4:50 AM EDT [facility] Blood Venipuncture / Unknown 04/09/2025 4:18 AM EDT 04/09/2025 4:31 AM EDT Sushil Dean Jr., MD LAB BLOOD ORDERABLES Fi nal Result Performing Organization Address City/[facility]/ZIP Co de Phone Number [facility]
[address] [place] [address], * Heparin Anti-Xa (04/09/2025 4:18 AM EDT) Heparin Anti-Xa (UFH) 0.41 0.30 - 0.70 IU/ml 04/09/2025 4:53 AM EDT [facility] Blood Venipuncture / Unknown 04/09/2025 4:18 AM EDT 04/09/2025 4:31 AM EDT Una LundbergD LAB BLOOD ORDERABLES Final R esult [facility]
[address] [place] [address], * (ABNORMAL) Basic Metabolic Panel (04/09/2025 4:18 AM EDT) Glucose 147(H) 65 - 99 mg/dL 04/09/2025 5:33 AM EDT [facility] BUN 23.0(H) 6.0 - 20.0 mg/dL 04/09/2025 5:33 AM EDT [facility] Creatinine 1.15 0.76 - 1.27 mg/dL 04/09/2025 5:33 AM EDT [facility] Sodium 135(L) 136 - 145 mmol/L 04/09/2025 5:33 AM EDT [facility] Potassium 4.2 3.5 - 5.2 mmol/L 04/09/2025 5:33 AM EDT [facility] Chloride 100 98 - 107 mmol/L 04/09/2025 5:33 AM EDT [facility] CO2 26.0 22.0 - 29.0 mmol/L 04/09/2025 5:33 AM EDT [facility] Calcium 8.2(L) 8.6 - 10.5 mg/dL 04/09/2025 5:33 AM EDT [facility] BUN/Creatinine Ratio 20.0 7.0 - 25.0 04/09/2025 5:33 AM EDT [facility] Anion Gap 9.0 5.0 - 15.0 mmol/L 04/09/2025 5:33 AM EDT [facility] eGFR 80.5 >60.0 mL/min/1.7 3 04/09/2025 5:33 AM EDT [facility] Blood Venipuncture / [...] MD LAB BLOOD ORDERABLES Fi nal Result [facility]
[address] [place] [address], * Wound Culture - Swab, Leg, Right (04/08/2025 3:40 PM EDT) Wound Culture No growth at 3 days ALIZA 04/11/2025 10:40 AM EDT [facility] Gram Stain Few (2+) WBCs seen 04/11/2025 10:40 AM EDT [facility] Gram Stain No organisms seen 04/11/2025 10:40 AM EDT [facility] Swab Structure of right lower limb / Unknown 04/08/2025 3:40 PM EDT 04/08/2025 8:05 PM EDT us Sushil Dean Jr., MD MICROBIOLOGY - GENERAL ORDERABLES Final Result Performing Organization Address City/[facility]/ZIP Co de Phone Number [facility]
[address] [place] [address], [facility]
[address] [place] [address], * Anaerobic Culture - Swab, Leg, Right (04/08/2025 3:40 PM EDT) Anaerobic Culture No anaerobes isolated at 5 days ALIZA 04/13/2025 7:24 AM EDT [facility] Swab Structure of right lower limb / Unknown 04/08/2025 3:40 PM EDT 04/08/2025 8:05 PM EDT us Sushil Dean Jr., MD MICROBIOLOGY - GENERAL ORDERABLES Final Result Performing Organization Address City/[facility]/ZIP Co de Phone Number [facility]
[address] [place] [address], * Scan Slide (04/08/2025 8:41 AM EDT) RBC Morphology Normal Normal 04/08/2025 11:02 AM EDT [facility] WBC Morphology Normal Normal 04/08/2025 11:02 AM EDT [facility] Platelet Estimate Adequate Normal 04/08/2025 11:02 AM EDT [facility] Clumped Platelets Present None Seen 04/08/2025 11:02 AM EDT [facility] Blood Venipuncture / Unknown 04/08/2025 8:41 AM EDT 04/08/2025 9:10 AM EDT Una Minda PharmD LAB BLOOD ORDERABLES Final R esult [facility]
[address] [place] [address], * (ABNORMAL) CBC Auto Differential (04/08/2025 8:41 AM EDT) WBC 10.07 3.40 - 10.80 10*3/mm3 04/08/2025 11:02 AM EDT [facility] RBC 5.01 4.14 - 5.80 10*6/mm3 04/08/2025 11:02 AM EDT [facility] Hemoglobin 14.0 13.0 - 17.7 g/dL 04/08/2025 11:02 AM EDT [facility] Hematocrit 42.7 37.5 - 51.0 % 04/08/2025 11:02 AM EDT [facility] MCV 85.2 79.0 - 97.0 fL 04/08/2025 11:02 AM EDT [facility] MCH 27.9 26.6 - 33.0 pg 04/08/2025 11:02 AM EDT [facility] MCHC 32.8 31.5 - 35.7 g/dL 04/08/2025 11:02 AM EDT [facility] RDW 12.6 12.3 - 15.4 % 04/08/2025 11:02 AM EDT [facility] RDW-SD 38.9 37.0 - 54.0 fl 04/08/2025 11:02 AM [facility] MPV 11.0 6.0 - 12.0 fL 04/08/2025 11:02 AM [facility] Platelets 118(L) 140 - 450 10*3/mm3 04/08/2025 11:02 AM [facility] Neutrophil % 85.1(H) 42.7 - 76.0 % 04/08/2025 11:02 AM [facility] Lymphocyte % 9.3(L) 19.6 - 45.3 % 04/08/2025 11:02 AM [facility] Monocyte % 4.6(L) 5.0 - 12.0 % 04/08/2025 11:02 AM [facility] Eosinophil % 0.3 0.3 - 6.2 % 04/08/2025 11:02 AM [facility] Basophil % 0.2 0.0 - 1.5 % 04/08/2025 11:02 AM [facility] Immature Grans % 0.5 0.0 - 0.5 % 04/08/2025 11:02 AM [facility] Neutrophils, Absolute 8.57(H) 1.70 - 7.00 10*3/mm3 04/08/2025 11:02 AM [facility] Lymphocytes, Absolute 0.94 0.70 - 3.10 10*3/mm3 04/08/2025 11:02 AM [facility] Monocytes, Absolute 0.46 0.10 - 0.90 10*3/mm3 04/08/2025 11:02 AM [facility] Eosinophils, Absolute 0.03 0.00 - 0.40 10*3/mm3 04/08/2025 11:02 AM [facility] Basophils, Absolute 0.02 0.00 - 0.20 10*3/mm3 04/08/2025 11:02 AM [facility] Immature Grans, Absolute 0.05 0.00 - 0.05 10*3/mm3 04/08/2025 11:02 AM EDT [facility] nRBC 0.0 0.0 - 0.2 /100 WBC 04/08/2025 11:02 AM EDT [facility] Blood Venipuncture / Unknown 04/08/2025 8:41 AM EDT 04/08/2025 9:10 AM EDT Una Perla PharmD LAB BLOOD ORDERABLES Final R esult [facility]
[address] [place] [address], * (ABNORMAL) Basic Metabolic Panel (04/08/2025 8:41 AM EDT) Glucose 125(H) 65 - 99 mg/dL 04/08/2025 9:51 AM EDT [facility] BUN 13.2 6.0 - 20.0 mg/dL 04/08/2025 9:51 AM EDT [facility] Creatinine 0.69(L) 0.76 - 1.27 mg/dL 04/08/2025 9:51 AM EDT [facility] Sodium 136 136 - 145 mmol/L 04/08/2025 9:51 AM EDT [facility] Potassium 4.6 3.5 - 5.2 mmol/L 04/08/2025 9:51 AM EDT [facility] Chloride 102 98 - 107 mmol/L 04/08/2025 9:51 AM EDT [facility] CO2 23.5 22.0 - 29.0 mmol/L 04/08/2025 9:51 AM EDT [facility] Calcium 8.4(L) 8.6 - 10.5 mg/dL 04/08/2025 9:51 AM EDT [facility] BUN/Creatinine Ratio 19.1 7.0 - 25.0 04/08/2025 9:51 AM EDT [facility] Anion Gap 10.5 5.0 - 15.0 mmol/L 04/08/2025 9:51 AM EDT [facility] eGFR 117.0 >60.0 mL/min/1.7 3 04/08/2025 9:51 AM EDT [facility] Blood Venipuncture / Unknown 04/08/2025 8:41 AM EDT 04/08/2025 9:09 AM EDT Narrative [facility] - 04/08/2025 9:51 AM [...] ORDERABLES Fi nal Result Performing Organization Address City/[facility]/ZIP Co de Phone Number [facility]
[address] [place] [address], * Heparin Anti-Xa (04/08/2025 8:41 AM EDT) Heparin Anti-Xa (UFH) 0.33 0.30 - 0.70 IU/ml 04/08/2025 9:40 AM EDT [facility] Blood Venipuncture / Unknown 04/08/2025 8:41 AM EDT 04/08/2025 9:10 AM EDT Sushil Dean Jr., MD LAB BLOOD ORDERABLES Fi nal Result Performing Organization Address City/[facility]/ZIP Co de Phone Number [facility]
[address] [place] [address], * [place] C Arm During Surgery (04/07/2025 [...] Occasional WBCs seen 04/11/2025 10:40 AM EDT [facility] Gram Stain No organisms seen 04/11/2025 10:40 AM EDT [facility] Swab Structure of right lower limb / Unknown Collection / Unknown 04/07/2025 9:14 PM EDT 04/08/2025 4:36 AM EDT us Sushil Dean Jr., MD MICROBIOLOGY - GENERAL ORDERABLES Final Result Performing Organization Address City/[facility]/ZIP Co de Phone Number [facility]
[address] [place] [address], [place] [phone] [facility]
[address] [place] [address], [place] [phone] * Anaerobic Culture - Swab, Leg, Right (04/07/2025 9:14 PM EDT) Anaerobic Culture No anaerobes isolated at 5 days ALIZA 04/13/2025 7:21 AM EDT [facility] Swab Structure of right lower limb / Unknown Collection / Unknown 04/07/2025 9:14 PM EDT 04/08/2025 4:36 AM EDT us Sushil Dean Jr., MD MICROBIOLOGY - GENERAL ORDERABLES Final Result [facility]
[address] [place] [address], * Anaerobic Culture - Tissue, Leg (04/07/2025 9:13 PM EDT) Anaerobic Culture No anaerobes isolated at 5 days ALIZA 04/13/2025 7:21 AM EDT [facility] Tissue Lower limb structure / Unknown Collection / Unknown 04/07/2025 9:13 PM EDT 04/08/2025 4:54 AM EDT Jason Álvarez DO MICROBIOLOGY - GENERAL ORDERABLE S Final Result Performing Organization Address [facility]/State/ZIP Co de Phone Number [facility]
[address] [place] [address], * Tissue / Bone Culture - Tissue, Leg, Right (04/07/2025 9:13 PM EDT) Tissue Culture No growth at 3 days ALIZA 04/11/2025 10:36 AM EDT [facility] Gram Stain Rare (1+) WBCs seen 04/11/2025 10:36 AM EDT [facility] Gram Stain No organisms seen 04/11/2025 10:36 AM EDT [facility] Tissue Structure of right lower limb / Unknown 04/07/2025 9:13 PM EDT 04/08/2025 4:54 AM EDT Sushil Dean Jr., MD MICROBIOLOGY - GENERAL ORDERABLES Final Result [facility]
[address] [place] [address], [facility]
[address] [place] [address], [place] [phone] * (ABNORMAL) Wound Culture - Swab, Leg, Right (04/07/2025 9:07 PM EDT) Wound Culture Light growth (2+) Staphylococcus aureus, MRSA(A) ALIZA 04/10/2025 10:38 AM EDT [facility] Comment: Methicillin resistant Staphylococcus aureus, Patient may be an isolation risk. Gram Stain Few (2+) WBCs seen 04/10/2025 10:38 AM EDT [facility] Gram Stain No organisms seen 10:38 AM EDT [facility] Swab Structure of right [...] Final Result [facility]
[address] [place] [address], [place] [phone] [facility]
[address] [place] [address], [place] [phone] * Anaerobic Culture - Swab, Leg, Right [...] Result [facility]
[address] [place] [address], * Heparin Anti-Xa (04/07/2025 9:10 AM EDT) Pathologist [facility] Heparin Anti-Xa ([facility]) 0.30 0.30 - 0.70 IU/ml 04/07/2025 10:12 AM EDT [facility] Blood Venipuncture / Unknown 04/07/2025 9:10 AM EDT 04/07/2025 9:38 AM EDT Una Perla PharmD LAB BLOOD ORDERABLES Final R esult Performing Organization Address City/[facility]/ZIP Co de Phone Number [facility]
[address] [place] [address], * (ABNORMAL) CBC Auto Differential (04/07/2025 9:10 AM EDT) Pathologist [facility] WBC 8.63 3.40 - 10.80 10*3/mm3 04/07/2025 9:50 AM EDT [facility] RBC 5.23 4.14 - 5.80 10*6/mm3 04/07/2025 9:50 AM EDT [facility] Hemoglobin 14.7 13.0 - 17.7 g/dL 04/07/2025 9:50 AM EDT [facility] Hematocrit 44.8 37.5 - 51.0 % 04/07/2025 9:50 AM EDT [facility] MCV 85.7 79.0 - 97.0 fL 04/07/2025 9:50 AM EDT [facility] MCH 28.1 26.6 - 33.0 pg 04/07/2025 9:50 AM EDT [facility] MCHC 32.8 31.5 - 35.7 g/dL 04/07/2025 9:50 AM EDT [facility] RDW 12.8 12.3 - 15.4 % 04/07/2025 9:50 AM [facility] RDW-SD 39.9 37.0 - 54.0 fl 04/07/2025 9:50 AM [facility] MPV 10.8 6.0 - 12.0 fL 04/07/2025 9:50 AM [facility] Platelets 149 140 - 450 10*3/mm3 04/07/2025 9:50 AM [facility] Neutrophil % 66.7 42.7 - 76.0 % 04/07/2025 9:50 AM [facility] Lymphocyte % 20.5 19.6 - 45.3 % 04/07/2025 9:50 AM [facility] Monocyte % 9.8 5.0 - 12.0 % 04/07/2025 9:50 AM [facility] Eosinophil % 2.1 0.3 - 6.2 % 04/07/2025 9:50 AM [facility] Basophil % 0.3 0.0 - 1.5 % 04/07/2025 9:50 AM [facility] Immature Grans % 0.6(H) 0.0 - 0.5 % 04/07/2025 9:50 AM [facility] Neutrophils, Absolute 5.75 1.70 - 7.00 10*3/mm3 04/07/2025 9:50 AM [facility] Lymphocytes, Absolute 1.77 0.70 - 3.10 10*3/mm3 04/07/2025 9:50 AM [facility] [facility] Monocytes, Absolute 0.85 0.10 - 0.90 10*3/mm3 04/07/2025 9:50 AM [facility] Eosinophils, Absolute 0.18 0.00 - 0.40 10*3/mm3 04/07/2025 9:50 AM [facility] Basophils, Absolute 0.03 0.00 - 0.20 10*3/mm3 04/07/2025 9:50 AM [facility] Immature Grans, Absolute 0.05 0.00 - 0.05 10*3/mm3 04/07/2025 9:50 AM EDT [facility] nRBC 0.0 0.0 - 0.2 /100 WBC 04/07/2025 9:50 AM EDT [facility] Blood Venipuncture / Unknown 04/07/2025 9:10 AM EDT 04/07/2025 9:38 AM EDT us Jason Álvarez DO LAB BLOOD ORDERABLES Final Resul t [facility]
[address] [place] [address], * (ABNORMAL) Basic Metabolic Panel (04/07/2025 9:10 AM EDT) Glucose 112(H) 65 - 99 mg/dL 04/07/2025 10:19 AM EDT [facility] BUN 13.1 6.0 - 20.0 mg/dL 04/07/2025 10:19 AM EDT [facility] Creatinine 0.77 0.76 - 1.27 mg/dL 04/07/2025 10:19 AM EDT [facility] Sodium 139 136 - 145 mmol/L 04/07/2025 10:19 AM EDT [facility] Potassium 4.2 3.5 - 5.2 mmol/L 04/07/2025 10:19 AM EDT [facility] Comment:Specimen hemolyzed. Result may be falsely elevated. Chloride 105 98 - 107 mmol/L 04/07/2025 10:19 AM EDT [facility] CO2 24.8 22.0 - 29.0 mmol/L 04/07/2025 10:19 AM EDT [facility] Calcium 8.6 8.6 - 10.5 mg/dL 04/07/2025 10:19 AM EDT [facility] BUN/Creatinine Ratio 17.0 7.0 - 25.0 04/07/2025 10:19 AM EDT [facility] Anion Gap 9.2 5.0 - 15.0 mmol/L 04/07/2025 10:19 AM EDT [facility] eGFR 113.2 >60.0 mL/min/1.7 3 04/07/2025 10:19 AM EDT [facility] Blood Venipuncture / Unknown 04/07/2025 9:10 AM EDT 04/07/2025 9:38 AM EDT Narrative [facility] - 04/07/2025 10:19 AM [...] DO LAB BLOOD ORDERABLES Final Resul t [facility]
[address] [place] [address], * MRI Tibia Fibula Right With & [...] [place] 04/07/2025 9:58 AM EDT Workstation ID: [id number] Narrative 04/07/2025 9:58 AM EDT MRI TIBIA [...] [place] 04/07/2025 9:58 AM EDT Workstation ID: [id number] Sushil Dean Jr., MD IMG MRI ORDERABLES Mary Beth l Result * Heparin Anti-Xa (04/07/2025 1:42 AM EDT) [facility] Heparin Anti-Xa (UFH) 0.38 0.30 - 0.70 IU/ml 04/07/2025 2:14 AM EDT [facility] Blood Venipuncture / Unknown 04/07/2025 1:42 AM EDT 04/07/2025 1:54 AM EDT Chelsie Turpin [facility] LAB BLOOD ORDERABLES Final R esult [facility]
[address] [place] [address], * Heparin Anti-Xa (04/06/2025 7:16 PM EDT) [facility] Heparin Anti-Xa (UFH) 0.33 0.30 - 0.70 IU/ml 04/06/2025 7:50 PM EDT [facility] Blood Venipuncture / Unknown 04/06/2025 7:16 PM EDT 04/06/2025 7:35 PM EDT Cherri Beatty [facility] LAB BLOOD ORDERABLES Final Res ult Performing Organization Address [facility] Co de Phone Number [facility]
[address] [place] [address], * Potassium (04/06/2025 7:16 PM EDT) [facility] Potassium 4.0 3.5 - 5.2 mmol/L 04/06/2025 7:53 PM EDT [facility] Blood Venipuncture / Unknown 04/06/2025 7:16 PM EDT 04/06/2025 7:35 PM EDT Jason Álvarez DO LAB BLOOD ORDERABLES Final Resul t Performing Organization Address [facility] de Phone Number [facility]
[address] [place] [address], * (ABNORMAL) Heparin Anti-Xa (04/06/2025 12:36 PM EDT) [facility] Heparin Anti-Xa (UFH) 0.24(L) 0.30 - 0.70 IU/ml 04/06/2025 1:23 PM EDT [facility] Blood Venipuncture / Unknown 04/06/2025 12:36 PM EDT 04/06/2025 1:07 PM EDT Una Perla PharmD LAB BLOOD ORDERABLES Final R esult Performing Organization Address [facility] Co de Phone Number [facility]
[address] [place] [address], * (ABNORMAL) Heparin Anti-Xa (04/06/2025 3:42 AM EDT) [facility] Heparin Anti-Xa (UFH) 0.25(L) 0.30 - 0.70 IU/ml 04/06/2025 5:30 AM EDT [facility] Blood Venipuncture / Unknown 04/06/2025 3:42 AM EDT 04/06/2025 4:59 AM EDT Chelsie Dyana [facility] LAB BLOOD ORDERABLES Final R esult [facility]
[address] [place] [address], * (ABNORMAL) Basic Metabolic Panel (04/06/2025 3:42 AM EDT) [facility] Glucose 94 65 - 99 mg/dL 04/06/2025 5:59 AM EDT [facility] BUN 12.8 6.0 - 20.0 mg/dL 04/06/2025 5:59 AM EDT [facility] Creatinine 0.80 0.76 - 1.27 mg/dL 04/06/2025 5:59 AM EDT [facility] Sodium 138 136 - 145 mmol/L 04/06/2025 5:59 AM EDT [facility] Potassium 3.6 3.5 - 5.2 mmol/L 04/06/2025 5:59 AM EDT [facility] Chloride 103 98 - 107 mmol/L 04/06/2025 5:59 AM EDT [facility] CO2 24.2 22.0 - 29.0 mmol/L 04/06/2025 5:59 AM EDT [facility] Calcium 8.0(L) 8.6 - 10.5 mg/dL 04/06/2025 5:59 AM EDT [facility] BUN/Creatinine Ratio 16.0 7.0 - 25.0 04/06/2025 5:59 AM EDT [facility] Anion Gap 10.8 5.0 - 15.0 mmol/L 04/06/2025 5:59 AM EDT [facility] eGFR 111.9 >60.0 mL/min/1.7 3 04/06/2025 5:59 AM EDT [facility] Blood Venipuncture / [...] DO LAB BLOOD ORDERABLES Final Resul t [facility]
[address] [place] [address], * (ABNORMAL) CBC Auto Differential (04/06/2025 3:41 AM EDT) WBC 10.86(H) 3.40 - 10.80 10*3/mm3 04/06/2025 5:04 AM EDT [facility] RBC 5.08 4.14 - 5.80 10*6/mm3 04/06/2025 5:04 AM EDT [facility] Hemoglobin 13.9 13.0 - 17.7 g/dL 04/06/2025 5:04 AM EDT [facility] Hematocrit 43.7 37.5 - 51.0 % 04/06/2025 5:04 AM EDT [facility] MCV 86.0 79.0 - 97.0 fL 04/06/2025 5:[facility] MCH 27.4 26.6 - 33.0 pg 04/06/2025 5:04 AM [facility] MCHC 31.8 31.5 - 35.7 g/dL 04/06/2025 5:04 AM [facility] RDW 12.8 12.3 - 15.4 % 04/06/2025 5:04 AM [facility] RDW-SD 40.0 37.0 - 54.0 fl 04/06/2025 5:04 AM [facility] MPV 11.7 6.0 - 12.0 fL 04/06/2025 5:04 AM [facility] Platelets 115(L) 140 - 450 10*3/mm3 04/06/2025 5:04 AM [facility] Neutrophil % 65.3 42.7 - 76.0 % 04/06/2025 5:04 AM [facility] Lymphocyte % 20.5 19.6 - 45.3 % 04/06/2025 5:04 AM [facility] Monocyte % 11.8 5.0 - 12.0 % 04/06/2025 5:04 AM [facility] Eosinophil % 1.8 0.3 - 6.2 % 04/06/2025 5:04 AM [facility] Basophil % 0.3 0.0 - 1.5 % 04/06/2025 5:04 AM [facility] Immature Grans % 0.3 0.0 - 0.5 % 04/06/2025 5:04 AM [facility] Neutrophils, Absolute 7.09(H) 1.70 - 7.00 10*3/mm3 04/06/2025 5:04 AM [facility] Lymphocytes, Absolute 2.23 0.70 - 3.10 10*3/mm3 04/06/2025 5:04 AM [facility] Monocytes, Absolute 1.28(H) 0.10 - 0.90 10*3/mm3 04/06/2025 5:04 AM EDT [facility] Eosinophils, Absolute 0.20 0.00 - 0.40 10*3/mm3 04/06/2025 5:04 AM EDT [facility] Basophils, Absolute 0.03 0.00 - 0.20 10*3/mm3 04/06/2025 5:04 AM EDT [facility] Immature Grans, Absolute 0.03 0.00 - 0.05 10*3/mm3 04/06/2025 5:04 AM EDT [facility] nRBC 0.0 0.0 - 0.2 /100 WBC 04/06/2025 5:04 AM EDT [facility] Blood Venipuncture / Unknown 04/06/2025 3:41 AM EDT 04/06/2025 4:58 AM EDT Jason Álvarez DO LAB BLOOD ORDERABLES Final Resul t Performing Organization Address City/[facility] Co de Phone Number [facility]
[address] [place] [address], [place] [phone] * Heparin Anti-Xa (04/05/2025 8:43 PM EDT) Pathologist [facility] Heparin Anti-Xa (UFH) 0.38 0.30 - 0.70 IU/ml 04/05/2025 9:09 PM EDT [facility] Blood Venipuncture / Unknown 04/05/2025 8:43 PM EDT 04/05/2025 8:55 PM EDT us Cherri Beatty [facility] LAB BLOOD ORDERABLES Final Res ult Performing Organization Address City/[facility] Co de Phone Number [facility]
[address] [place] [address], [place] [phone] * CK (04/05/2025 12:15 PM EDT) Creatine Kinase 140 20 - 200 U/L 04/05/2025 1:31 PM EDT [facility] Blood Venipuncture / Unknown 04/05/2025 12:15 PM EDT 04/05/2025 1:03 PM EDT Carlton Mead MD LAB BLOOD ORDERABLES Final R esult Performing Organization Address City/[facility]/ZIP Co de Phone Number [facility]
[address] [place] [address], * (ABNORMAL) Heparin Anti-Xa (04/05/2025 12:15 PM EDT) [facility] Heparin Anti-Xa (UFH) 0.17(L) 0.30 - 0.70 IU/ml 04/05/2025 1:21 PM EDT [facility] Blood Venipuncture / Unknown 04/05/2025 12:15 PM EDT 04/05/2025 1:04 PM EDT Una Perla PharmD LAB BLOOD ORDERABLES Final R esult Performing Organization Address City/[facility] Co de Phone Number [facility]
[address] [place] [address], * (ABNORMAL) aPTT (04/05/2025 3:54 AM EDT) [facility] PTT 35.3(L) 60.0 - 90.0 seconds 04/05/2025 4:31 AM EDT [facility] Blood Venipuncture / Unknown 04/05/2025 3:54 AM EDT 04/05/2025 4:15 AM EDT Narrative [facility] - 04/05/2025 4:31 AM EDT PTT = The equivalent PTT values for the therapeutic range of heparin levels at 0.3 to 0.5 U/ml are 60 to 70 seconds. [employer] LAB BLOOD ORDERABLES Final R esult [facility]
[address] [place] [address], * Heparin Anti-Xa (04/05/2025 3:54 AM EDT) Pathologist [facility] Heparin Anti-Xa (UFH) 0.30 0.30 - 0.70 IU/ml 04/05/2025 4:32 AM EDT [facility] Blood Venipuncture / Unknown 04/05/2025 3:54 AM EDT 04/05/2025 4:15 AM EDT [employer] LAB BLOOD ORDERABLES Final R esult Performing Organization Address City/[facility]/ZIP Co de Phone Number [facility]
[address] [place] [address], * (ABNORMAL) CBC Auto Differential (04/05/2025 3:54 AM EDT) [facility] WBC 11.18(H) 3.40 - 10.80 10*3/mm3 04/05/2025 4:20 AM EDT [facility] RBC 5.00 4.14 - 5.80 10*6/mm3 04/05/2025 4:20 AM EDT [facility] Hemoglobin 13.9 13.0 - 17.7 g/dL 04/05/2025 4:20 AM EDT [facility] Hematocrit 42.4 37.5 - 51.0 % 04/05/2025 4:20 AM EDT [facility] MCV 84.8 79.0 - 97.0 fL 04/05/2025 4:20 AM EDT [facility] MCH 27.8 26.6 - 33.0 pg 04/05/2025 4:20 AM EDT [facility] MCHC 32.8 31.5 - 35.7 g/dL 04/05/2025 4:20 AM [facility] RDW 12.9 12.3 - 15.4 % 04/05/2025 4:20 AM [facility] RDW-SD 39.7 37.0 - 54.0 fl 04/05/2025 4:20 AM [facility] MPV 10.2 6.0 - 12.0 fL 04/05/2025 4:20 AM [facility] Platelets 160 140 - 450 10*3/mm3 04/05/2025 4:20 AM [facility] Neutrophil % 73.5 42.7 - 76.0 % 04/05/2025 4:20 AM [facility] Lymphocyte % 14.0(L) 19.6 - 45.3 % 04/05/2025 4:20 AM [facility] Monocyte % 11.0 5.0 - 12.0 % 04/05/2025 4:20 AM [facility] Eosinophil % 0.8 0.3 - 6.2 % 04/05/2025 4:20 AM [facility] Basophil % 0.3 0.0 - 1.5 % 04/05/2025 4:20 AM [facility] Immature Grans % 0.4 0.0 - 0.5 % 04/05/2025 4:20 AM [facility] Neutrophils, Absolute 8.23(H) 1.70 - 7.00 10*3/mm3 04/05/2025 4:20 AM [facility] Lymphocytes, Absolute 1.56 0.70 - 3.10 10*3/mm3 04/05/2025 4:20 AM [facility] Monocytes, Absolute 1.23(H) 0.10 - 0.90 10*3/mm3 04/05/2025 4:20 AM [facility] Eosinophils, Absolute 0.09 0.00 - 0.40 10*3/mm3 04/05/2025 4:20 AM [facility] Basophils, Absolute 0.03 0.00 - 0.20 10*3/mm3 04/05/2025 4:20 AM EDT [facility] Immature Grans, Absolute 0.04 0.00 - 0.05 10*3/mm3 04/05/2025 4:20 AM EDT [facility] nRBC 0.0 0.0 - 0.2 /100 WBC 04/05/2025 4:20 AM EDT [facility] Blood Venipuncture / Unknown 04/05/2025 3:54 AM EDT 04/05/2025 4:16 AM EDT Una Perla PharmD LAB BLOOD ORDERABLES Final R esult [facility]
[address] [place] [address], * (ABNORMAL) Basic Metabolic Panel (04/05/2025 3:54 AM EDT) Glucose 152(H) 65 - 99 mg/dL 04/05/2025 4:40 AM EDT [facility] BUN 17.3 6.0 - 20.0 mg/dL 04/05/2025 4:40 AM EDT [facility] Creatinine 0.92 0.76 - 1.27 mg/dL 04/05/2025 4:40 AM EDT [facility] Sodium 136 136 - 145 mmol/L 04/05/2025 4:40 AM EDT [facility] Potassium 3.9 3.5 - 5.2 mmol/L 04/05/2025 4:40 AM EDT [facility] Chloride 103 98 - 107 mmol/L 04/05/2025 4:40 AM EDT [facility] CO2 24.0 22.0 - 29.0 mmol/L 04/05/2025 4:40 AM EDT [facility] Calcium 7.8(L) 8.6 - 10.5 mg/dL 04/05/2025 4:40 AM EDT [facility] BUN/Creatinine Ratio 18.8 7.0 - 25.0 04/05/2025 4:40 AM EDT [facility] Anion Gap 9.0 5.0 - 15.0 mmol/L 04/05/2025 4:40 AM EDT [facility] eGFR 105.2 >60.0 mL/min/1.7 3 04/05/2025 4:40 AM EDT [facility] Blood Venipuncture / [...] MD LAB BLOOD ORDERABLES Final Re sult [facility]
[address] [place] [address], * (ABNORMAL) aPTT (04/05/2025 12:18 AM EDT) PTT 33.6(L) 60.0 - 90.0 seconds 04/05/2025 12:53 AM EDT [facility] Blood Venipuncture / Unknown 04/05/2025 12:18 AM EDT 04/05/2025 12:37 AM EDT [facility] - 04/05/2025 12:53 AM EDT PTT = The equivalent PTT values for the therapeutic range of heparin levels at 0.3 to 0.5 U/ml are 60 to 70 seconds. [employer] PharmD LAB BLOOD ORDERABLES Final R esult [facility]
[address] [place] [address], [place] [phone] * (ABNORMAL) Protime-INR (04/05/2025 12:18 AM EDT) Protime 15.9(H) 12.2 - 15.3 Seconds 04/05/2025 12:53 AM EDT [facility] INR 1.19(H) 0.89 - 1.12 04/05/2025 12:53 AM EDT [facility] Blood Venipuncture / Unknown 04/05/2025 12:18 AM EDT 04/05/2025 12:37 AM EDT [employer] PharmD LAB BLOOD ORDERABLES Final R esult Performing Organization Address [facility] Co de Phone Number [facility]
[address] [place] [address], [place] [phone] * Heparin Anti-Xa (04/05/2025 12:18 AM EDT) Pathologist [facility] Heparin Anti-Xa (UFH) 0.39 0.30 - 0.70 IU/ml 04/05/2025 12:54 AM EDT [facility] Blood Venipuncture / Unknown 04/05/2025 12:18 AM EDT 04/05/2025 12:37 AM EDT [employer] Pharm[employer] LAB BLOOD ORDERABLES Final R esult Performing Organization Address City/[facility]/ZIP Co de Phone Number [facility]
[address] [place] [address], [place] [phone] * MRI Tibia Fibula Right With & [...] MD 04/04/2025 11:00 PM EDT Workstation ID: [id number] Narrative 04/04/2025 11:00 PM EDT MRI TIBIA [...] MD 04/04/2025 11:00 PM EDT Workstation ID: [id number] Leonora Shepherd MD IMG MRI ORDERABLES Final Resu lt * POC Creatinine (04/04/2025 2:49 PM EDT) Creatinine 1.10 0.60 - 1.30 mg/dL 04/07/2025 7:14 PM EDT [facility] Comment:Serial Number: [id number] Venous Blood 04/04/2025 2:49 PM EDT 04/07/2025 7:14 PM EDT Jason Álvarez DO POINT OF CARE TEST ORDERABLES Fi nal Result [facility]
[address] [place] [address], [place] [phone] * (ABNORMAL) CBC Auto Differential (04/04/2025 2:47 PM EDT) [facility] Signature WBC 12.72(H) 3.40 - 10.80 10*3/mm3 04/04/2025 2:56 PM EDT [facility] RBC 5.64 4.14 - 5.80 10*6/mm3 04/04/2025 2:56 PM EDT [facility] Hemoglobin 15.3 13.0 - 17.7 g/dL 04/04/2025 2:56 PM EDT [facility] Hematocrit 47.9 37.5 - 51.0 % 04/04/2025 2:56 PM EDT [facility] MCV 84.9 79.0 - 97.0 fL 04/04/2025 2:56 PM EDT [facility] MCH 27.1 26.6 - 33.0 pg 04/04/2025 2:56 PM EDT [facility] MCHC 31.9 31.5 - 35.7 g/dL 04/04/2025 2:56 PM EDT [facility] RDW 13.1 12.3 - 15.4 % 04/04/2025 2:56 PM EDT [facility] RDW-SD 40.3 37.0 - 54.0 fl 04/04/2025 2:56 PM EDT [facility] MPV 9.4 6.0 - 12.0 fL 04/04/2025 2:56 PM EDT [facility] Platelets 232 140 - 450 10*3/mm3 04/04/2025 2:56 PM EDT [facility] Neutrophil % 74.9 42.7 - 76.0 % 04/04/2025 2:56 PM EDT [facility] Lymphocyte % 13.1(L) 19.6 - 45.3 % 04/04/2025 2:56 PM EDT [facility] Monocyte % 11.2 5.0 - 12.0 % 04/04/2025 2:56 PM EDT [facility] Eosinophil % 0.4 0.3 - 6.2 % 04/04/2025 2:56 PM EDT [facility] Basophil % 0.2 0.0 - 1.5 % 04/04/2025 2:56 PM EDT [facility] Immature Grans % 0.2 0.0 - 0.5 % 04/04/2025 2:56 PM EDT [facility] Neutrophils, Absolute 9.52(H) 1.70 - 7.00 10*3/mm3 04/04/2025 2:56 PM EDT [facility] Lymphocytes, Absolute 1.66 0.70 - 3.10 10*3/mm3 04/04/2025 2:56 PM EDT [facility] Monocytes, Absolute 1.43(H) 0.10 - 0.90 10*3/mm3 04/04/2025 2:56 PM EDT [facility] Eosinophils, Absolute 0.05 0.00 - 0.40 10*3/mm3 04/04/2025 2:56 PM EDT [facility] Basophils, Absolute 0.03 0.00 - 0.20 10*3/mm3 04/04/2025 2:56 PM EDT [facility] Immature Grans, Absolute 0.03 0.00 - 0.05 10*3/mm3 04/04/2025 2:56 PM EDT [facility] nRBC 0.0 0.0 - 0.2 /100 WBC 04/04/2025 2:56 PM EDT [facility] Blood Venipuncture / Unknown 04/04/2025 2:47 PM EDT 04/04/2025 2:52 PM EDT us Mario Crowley DO LAB BLOOD ORDERABLES Fin al Result [facility]
[address] [place] [address], * (ABNORMAL) C-reactive Protein (04/04/2025 2:47 PM EDT) Pathologist [facility] C-Reactive Protein 8.57(H) 0.00 - 0.50 mg/dL 04/04/2025 3:26 PM EDT [facility] Blood Venipuncture / Unknown 04/04/2025 2:47 PM EDT 04/04/2025 2:52 PM EDT Mario Ortiz Keo LAB BLOOD ORDERABLES Fin al Result [facility]
[address] [place] [address], * (ABNORMAL) Sedimentation Rate (04/04/2025 2:47 PM EDT) [facility] Sed Rate 51(H) 0 - 15 mm/hr 04/04/2025 3:06 PM EDT [facility] Blood Venipuncture / Unknown 04/04/2025 2:47 PM EDT 04/04/2025 2:52 PM EDT Mario Ortiz Keo LAB BLOOD ORDERABLES Fin al Result Performing Organization Address City/[facility]/ZIP Co de Phone Number [facility]
[address] [place] [address], * Comprehensive Metabolic Panel (04/04/2025 2:47 PM EDT) [facility] Glucose 90 65 - 99 mg/dL 04/04/2025 3:26 PM EDT [facility] BUN 18.3 6.0 - 20.0 mg/dL 04/04/2025 3:26 PM EDT [facility] Creatinine 0.94 0.76 - 1.27 mg/dL 04/04/2025 3:26 PM EDT [facility] Sodium 136 136 - 145 mmol/L 04/04/2025 3:26 PM EDT [facility] Potassium 3.8 3.5 - 5.2 mmol/L 04/04/2025 3:26 PM EDT [facility] Chloride 100 98 - 107 mmol/L 04/04/2025 3:26 PM EDT [facility] CO2 25.3 22.0 - 29.0 mmol/L 04/04/2025 3:26 PM EDT [facility] Calcium 8.6 8.6 - 10.5 mg/dL 04/04/2025 3:26 PM EDT [facility] Total Protein 7.3 6.0 - 8.5 g/dL 04/04/2025 3:26 PM EDT [facility] Albumin 4.1 3.5 - 5.2 g/dL 04/04/2025 3:26 PM EDT [facility] ALT (SGPT) 26 1 - 41 U/L 04/04/2025 3:26 PM EDT [facility] AST (SGOT) 25 1 - 40 U/L 04/04/2025 3:26 PM EDT [facility] Alkaline Phosphatase 106 39 - 117 U/L 04/04/2025 3:26 PM T [facility] Total Bilirubin 1.0 0.0 - 1.2 mg/dL 04/04/2025 3:26 PM EDT [facility] Globulin 3.2 gm/dL 04/04/2025 3:26 PM T [facility] Comment:Calculated Result A/G Ratio 1.3 g/dL 04/04/2025 3:26 PM EDT [facility] BUN/Creatinine Ratio 19.5 7.0 - 25.0 04/04/2025 3:26 PM T [facility] Anion Gap 10.7 5.0 - 15.0 mmol/L 04/04/2025 3:26 PM T [facility] eGFR 102.5 >60.0 mL/min/1.7 3 04/04/2025 3:26 PM [facility] Blood Venipuncture / Unknown 04/04/2025 2:47 PM EDT 04/04/2025 2:52 PM EDT Narrative [facility] - 04/04/2025 3:26 PM [...] DO LAB BLOOD ORDERABLES Fin al Result [facility]
[address] [place] [address], documented in this encounter Visit Diagnoses Diagnosis [...] Salazar, KELL)1943 (Given - Provider: Anahy Marcelino, BINDER LOCKSTITCH)2129 (Canceled Entry - Provider: Anahy Marcelino BINDER LOCKSTITCH - Comment: previously given) 0837 (Given - [...] prescribed for a lower pain scale. ([facility]) If given for pain, use [...] Continuous Medication Order 04/09/2025 04/10/2025 04/11/2025 heparin 17591 units/250 mL (100 units/mL) in 0.45 % [...] CPOT 5-8 2032 (Given - Provider: Alberto Diloln RN) 0906 (Given - Provider: Shirley Hart, [...] documented as of this encounter Care Teams Parachute [employer] Relationship Specialty Start Date End Date Provider, [place] [address] PCP - General 05/09/23 documented as of this encounter
--- OUTSIDE RECORDS SUMMARY | 2025-04-08 15:34 | XMS_ITS | Encounter Summary ---
Author Organization [facility] Address [address] [place] [address] Care Team Providers Care Silo Worker Name Role Phone Provider, No Known Primary Care Provider Unavail able Reason for Visit * Auth/Cert Specialty Diagnoses / Procedures Referred By Bulmaro muniz Referred To Contact Diagnoses Right BKA infection Referral ID Status Reason Start Date Expiration Date Visits Re quested Visits Authorized [id number] 1 1 Encounter Details Date Type Department Care Team (Late st Contact Info) Description 04/08/2025 3:34 PM EDT Anesthesia Event [facility] OR [address] [place] [address] Ulises Hoffman MD [address] [place] [address] Jairo Brooks MD [address] [place] [address] Anesthesia Record Procedure Summary Procedure Name Responsible [...] = 0.6 oz pur e alcohol) [facility] Utilities Answer Date Recorded In the past 12 months has [employer], oil, or water [employer] threatened to shut off services in your [...] or training? Not on file Preferred Language Sudanese 04/07/2025 Sex and Gender Information Value Date Recorded Sex Assigned at Not on file Legal Sex Male 7:30 PM EDT Gender Identity Not on file Sexual Orientation Not on file documented as of this encounter OR Notes * Anesthesia Postprocedure Evaluation - Stan Casillas CRNA - 04/08/2025 4:40 PM EDT Patient: Won Dennis Procedure Summary Date: 04/08/25 Room / Location: [facility] OR [address] [place] [address] [facility] [place] Anesthesia Start: 1533 Anesthesia Stop: [...] ROS Abdominal Substance History - negative use RUBBER TRIMMER negative feeder catcher ROS Other Anesthesia Plan ASA 3 general [...] documented as of this encounter Care Teams Silo Worker Relationship Specialty Start Date End Date Provider, [place] [address] PCP - General 05/09/23 documented as of this encounter
--- OUTSIDE RECORDS SUMMARY | 2025-04-29 14:58 | XMS_ITS | Patient Health Record ---
[facility] [address] [facility] [address] [place] [id number] Care Team Providers Care Wrecker Operator Name Role Phone Zeeshan Salazar Primary Care Provider [phone] Allergies No Known Allergies Medications Medication SIG [...] W/U Status Risk Notes Problem Essential hypertension (58094744) HTN [Hypertension] (401.9) Active confirmed appears resolved Problem Hypothyroidism (13708550) Hypothyroidism NOS (244.9) Active confirmed Problem Hyperlipidemia (68158618) Hyperlipidemia (272.4) Active confirmed Problem Constipation (39341103) Constipation, unspecified constipation type (K59.00) Active confirmed Problem History of pulmonary embolism on long-term anticoagulation therapy (82432915588861506 ) Hx pulmonary embolism (Z86.711) Active confirmed Problem Long-term current use of anticoagulant (049947441) Current use of computer terminal operator anticoagulation (Z79.01) Active confirmed Problem Adjustment disorder with anxious mood (16680982) Adjustment disorder with anxious mood (F43.22) Active confirmed Problem History of pulmonary embolus (398922419) History of pulmonary embolus (PE) (Z86.711) Active confirmed Problem Methicillin resistant Staphylococcus aureus infection (disorder) (001207828) Infection of wound due to methicillin resistant Staphylococcus aureus (MRSA) (A49.02) Active confirmed Problem Arthritis of knee (580254517) Arthritis of knee (M17.10) Active confirmed Problem Amputated below knee (857758408) 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
--- OUTSIDE RECORDS SUMMARY | 2025-04-29 14:58 | XMS_ITS | Clinical Summary ---
Author Organization [facility] Address [address] [facility] [address] [place] [address] Phone Care Team Providers Care Winder Helper Name Role Phone Unavailable Unavailable Conditions or Problems No information available. Medications No information available. Medications Administered No information available. Allergies, Adverse Reactions, Alerts No information available. Results No information available. Plan of Care No information available. Procedures No information available. Vital Signs No information available. Immunizations No information available. Advance Directives No information available.
[2025-04-29 14:59] VITALS: BP 111/78; PULSE 71; RESP 20; TEMP 36.6; O2SAT 95
[2025-04-29] MEDS: SODIUM CHLORIDE 0.9% 10ML FLUSH SYRINGE 10 ML IV (14:59)
[2025-04-29] MEDS: DAPTOmycin 1,000 MG in 0.9 % SODIUM CHLORIDE 50 ML 100 MG IV (14:59)
--- OUTSIDE RECORDS SUMMARY | 2025-04-29 14:59 | XMS_ITS | Continuity of Care Document ---
Author Organization [facility] Address [address] [place] [address] Care Team Providers Care Bore Mill Operator Name Role Phone SYBIL WILLIAM Primary Care Provider Assessment No assessment recorded. Plan of Treatment Reminders Order Date Submit Date Provider Last Modified By Organization Details Last Modified Time Details Appointments Establish ed Visit 15 min 2024 10:00A Jadyn Torres MD Not available Not available Not available Lab None recorded. Referral None recorded. Procedures None recorded. Surgeries None recorded. Imaging None recorded. Medication Orders None recorded. Patient TargetsNo targets recorded. Patient InstructionsNo instructions recorded. Reason for Referral None Reported. Results Created Date Observation Date Name Description Value Unit Range Abnormal Flag Note LastModifiedBy Organization Detail LastModifiedTime Result Notes None recorded. Problems Name Problem SNOMED Code Status Onset Date Resolution Date Notes Provider Name and Address Organization Details Recorded Time Methicillin resistant Staphylococ cus aureus infection 715831225 Active 2023 Amy jaramillo MD Daja [facility] & [place] 4 10:16:00 High risk medication monitoring indicated 2917048796771 9103 Active 2023 Amy jaramillo MD Daja [facility] & [place] 4 10:16:36 Problem Notes None recorded. Procedures Surgical History Date Name Laterality Status Provider Name and Address Organization Details Recorded Time 03/26/20 24 Venipuncture cancelled Lcui Ag PA-C [address] , [place], [address], [facility] & [place] 03/18/2024 14:56:10 10/24/19 24 Venipuncture completed Luci Ag PA-C [address] [facility], [place], [address], [facility] & [place] 10/23/2023 10:53:19 07/25/19 24 [facility] [place] 07/25/2023 14:41:20 amputation of lower limb completed Sarah Hendersonoxbow [facility] & [place] 07/25/2023 13:57:05 Imaging Results None recorded. Procedure Notes None recorded. Medical Equipment None Reported. Allergies Allergen ID Allergen Name Allergen Category Reaction Reaction Severity Criticality Documentation Date Start Date Code Code System Note Provider Name and Address Organization Details Recorded Time 402183 cefdinir medicatio n Not available Not available Not available 06/02/2023 14569 RxNorm Isabel Kay [facility] & [place] 10:06:00 Medications Name Sig Start Date Stop [...] active Not Available Not Available Not Available [facility] 10 billion cell-200 mg sprinkle [...] Available No t Available Vitals Date Recorded Heart rate Body height Oxygen saturation Oxygen saturation in Arterial blood by Pulse oximetry Body temperature Body mass index (BMI) Body weight Systolic And Diastolic Provider Name and Address Organization Details Last Updated DateTime 85 /min 180.34 cm 94 % 94 % 98.8 [degF] 41.7 kg/m2 679625. 12 g 140/96 mm[Hg] Amy Miles [facility] 11:13:21 Social History Question Answer Notes LastModified by Organizat ion Details LastModified Time Tobacco Smoking Status Never Smoker Isabel Kay [facility] 06/02/2023 10:06:28 Do You Have An Advance Directive? No Information not available 04/28/2025 Are You Blind Or Do You Have Difficulty Seeing? No [email or web address] Information not available 04/28/2025 What Was The Date Of Your Most Recent Tobacco Screening? 04/20/2025 [email or web address] Information not available 04/28/2025 Are You Passively Exposed To Smoke? No [email or web address] Information not available 04/28/2025 Sex: Unknown Functional Status Question Answer Note LastModified by Organizat ion Details LastModified Time Do you use any illicit or recreational drugs? No [email or web address] Information not available 07/25/2023 What is your level of alcohol consumption? None [email or web address] Information not available 04/28/2025 Mental Status None recorded. Family History Nothing Reported. Medical History Condition Response Clotting Disorder Y Back Problems Y Hypertension Y Immunizations Vaccine Type Date Status Note Provider Nam e and Address Organization Details Recorded Time Td (adult), 2 Lf tetanus toxoid, preservative free, adsorbed 6 completed [place] Brooks - [facility] & [place] 07/25/2023 13:54:15 Past Encounters Encounter ID Performer Location Encounter Start Date Encounter Closed Date Diagnosis/Indication Diagnosis SNOMED-CT Code Diagnosis ICD10 Code Diagnosis IMO Codes Diagnosis Note [id number] Randy Torres MD [facility] -[address] [facility] [address] 04/28/2025 11:00:57 04/28/2025 11:33:23 Osteomyelitis 32740452 M86.9 753949 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 He has undergone a repeat I and. D. 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 He is receiving outpatient intravenou s daptomycin . He is completed 4 weeks total so far. I will plan 6 weeks in total. After that time, he will resume chronic suppressiv e doxycyclin e that he will likely continue for life. I will continue to follow basic laboratory weekly including a CBC, CMP, ESR, CRP, total CK. I spent 30 minutes in this. visit. He will follow up with me again in 1 week. Methicilli n resistant Staphylococcus aureus infection 739737648 B95.62 1489632 As above Health Concerns Section Related Observation LastModified by Organization Detai ls LastModified Time None Recorded Concern Status LastModified by Organization Details LastModified Time None Recorded Payers Encounter Date Sequence Insurance Name Policy Number Policy Brantley Covered Member ID Brantley Member ID Guarantor Name 04/28/2025 1 [employer] - FFS/TRADITIONA L Won Dennis [id number] Won Dennis 04/28/2025 2 [facility] (MEDICAID REPLACEMENT - HMO) Won Dennis [id number] Won Dennis Notes Date Note Type Note Provider Name and Address Organization Details Recorded Time 04/28/2025 text/html ROS as noted in the HPI This is a 44-year-old white male who is following up with me for 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 He was treated with long-term daptomycin intravenously over a year ago after debridement. He was then placed on suppressive doxycycline for at least a year, though there was no hardware. Unfortunately, about 3 weeks ago, he developed swelling of his right BKA site again. A fluid collection was noted on imaging. He subsequently was admitted and underwent an I&D. He is on intravenous daptomycin and is now referred back to me. He has been on intravenous daptomycin for almost 4 weeks. The swelling in his stump has gone down. There is no persisting redness or pain. No fever. No issues tolerating the daptomycin. Randy Torres MD [address] [facility], [place], [address], [facility] - [place] - [place] & [place] 04/28/2025 11:42:44
--- OUTSIDE RECORDS SUMMARY | 2025-04-29 14:59 | XMS_ITS | Data Portability ---
Author Organization [facility] ADMIN Address [address] [place] [id number] Care Team Providers Care Photographic Specialist Name Role Phone SYBIL WILLIAM Primary Care Provider Assessment No assessment recorded. Plan of Treatment Reminders Order Date Submit Date Provider Last Modified By Organization Details Last Modified Time Details Appointments Establish ed Visit 15 min 2024 10:00A M Randy Torres MD Not available Not available Not available Lab C-reactiv e protein, quantitat nasim, serum or plasma [address] Lab, [address] [facility], [place], [address], 05/02/2024 17:36:31 ESR (erythroc yte sedimenta tion rate), blood [address] Lab, [address] [facility], [place], [address], 05/02/2024 17:36:31 C-reactiv e protein, quantitat nasim, serum or plasma 2023 024 [place] [address] [facility], [address], [address], [place], [address], 11/01/2023 08:08:32 ESR (erythroc yte sedimenta tion rate), blood 2023 024 [place] [address] [facility], [address], [address], [place], [address], 11/01/2023 08:08:32 CBC w/ auto diff 2023 024 [facility], [address] [facility], [place], [address], 10/24/2023 16:12:13 CMP, serum or plasma 2023 024 [facility], [address] [facility], [place], [address], 10/24/2023 16:42:07 CBC w/ auto diff 2023 024 [facility], [address] [facility], [place], [address], 07/25/2023 15:22:25 CMP, serum or plasma 2023 024 [facility], [address] [facility], [place], [address], 07/25/2023 16:32:05 prothromb in (factor II) 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 Procedures None recorded. Surgeries None recorded. Imaging None recorded. Medication Orders doxycycli ne hyclate 100 mg capsule 2023 024 [facility], [address] [place] [address], [address], [place], [address], 10/25/2023 09:18:27 Patient TargetsNo targets recorded. Patient InstructionsNo instructions recorded. Reason for Referral None Reported. Results Created Date Observation Date Name Description Value Unit Range Abnormal Flag Note LastModifiedBy Organization Detail LastModifiedTime 07/06/20 23 07/07/2023 COMP. METAB OLIC PANEL (14) glucose 92 mg/dL 70-99 Not Available [facility] ([facility]) [address] [place], [address], 07/07/2023 13:08:40 07/06/20 23 07/07/2023 COMP. METAB OLIC PANEL (14) BUN 18 mg/dL 6-24 Not Available [facility] ([facility]) [address] [place], [address], 07/07/2023 13:08:40 07/06/20 23 07/07/2023 COMP. METAB OLIC PANEL (14) creatinine 0.85 mg/dL 0.76-1 .27 Not Available [facility] ([facility]) [address] [place], [address], 07/07/2023 13:08:40 07/06/20 23 07/07/2023 COMP. METAB OLIC PANEL (14) eGFR 111 mL/mi n/1.7 3 >59 Not Available [facility] ([facility]) [address] [place], [address], 07/07/2023 13:08:40 07/06/20 23 07/07/2023 COMP. METAB OLIC PANEL (14) BUN/creatini ne ratio 21 9-20 above high normal Not Available [facility] ([facility]) [address] [place], [address], 07/07/2023 13:08:40 07/06/20 23 07/07/2023 COMP. METAB OLIC PANEL (14) sodium 140 mmol/ L 134-14 4 Not Available [facility] ([facility]) [address] [facility] [place], [address], 07/07/2023 13:08:40 07/06/20 23 07/07/2023 COMP. METAB OLIC PANEL (14) potassium 4.1 mmol/ L 3.5-5. 2 Not Available [facility] ([facility]) [address] [facility], [place], [address], 07/07/2023 13:08:40 07/06/20 23 07/07/2023 COMP. METAB OLIC PANEL (14) chloride 105 mmol/ L 96-106 Not Available [facility] ([facility]) [address] [facility], [place], [address], 07/07/2023 13:08:40 07/06/20 23 07/07/2023 COMP. METAB OLIC PANEL (14) carbon dioxide, total 22 mmol/ L - Not Available [facility] ([facility]) [address] [facility] [place], [address], 07/07/2023 13:08:40 07/06/20 23 07/07/2023 COMP. METAB OLIC PANEL (14) calcium 8.9 mg/dL 8.7-10 .2 Not Available [facility] ([facility]) [address] [facility], [place], [address], 07/07/2023 13:08:40 07/06/20 23 07/07/2023 COMP. METAB OLIC PANEL (14) protein, total 7.3 g/dL 6.0-8. 5 Not Available [facility] ([facility]) [address] [facility] [place], [address], 07/07/2023 13:08:40 07/06/20 23 07/07/2023 COMP. METAB OLIC PANEL (14) albumin 4.3 g/dL 4.1-5. 1 Not Available [facility] ([facility]) [address] [facility] [place], [address], 07/07/2023 13:08:40 07/06/20 23 07/07/2023 COMP. METAB OLIC PANEL (14) globulin, total 3.0 g/dL 1.5-4. 5 Not Available [facility] ([facility]) [address] [facility] [place], [address], 07/07/2023 13:08:40 07/06/20 23 07/07/2023 COMP. METAB OLIC PANEL (14) A/G ratio 1.4 1.2-2. 2 Not Available [facility] ([facility]) [address] [facility] [place], [address], 07/07/2023 13:08:40 07/06/20 23 07/07/2023 COMP. METAB OLIC PANEL (14) bilirubin, total 0.3 mg/dL 0.0-1. 2 Not Available [facility] ([facility]) [address] [facility] [place], [address], 07/07/2023 13:08:40 07/06/20 23 07/07/2023 COMP. METAB OLIC PANEL (14) alkaline phosphatase 85 IU/L 44-121 Not Available [facility] ([facility]) [address] [facility] [place], [address], 07/07/2023 13:08:40 07/06/20 23 07/07/2023 COMP. METAB OLIC PANEL (14) AST (SGOT) 24 IU/L 0-40 Not Available [facility] ([facility]) [address] [facility] [place], [address], 07/07/2023 13:08:40 07/06/20 23 07/07/2023 COMP. METAB OLIC PANEL (14) ALT (SGPT) 25 IU/L 0-44 Not Available [facility] ([facility]) [address] [facility], [place], [address], 07/07/2023 13:08:40 07/06/20 23 07/07/2023 SEDIM ENTAT ION RATE- WESTE RGREN sedimentatio n rate-westerg los 28 mm/HR 0-15 above high normal Not Available [facility] ([facility]) [address] [facility], [place], [address], 07/07/2023 13:08:42 07/06/20 23 07/07/2023 C-CHANA CTIVE PROTE IN, QUANT C-reactive protein, quant 11 mg/L 0-10 above high normal Not Available [facility] ([facility]) [address] [facility], [place], [address], 07/07/2023 13:08:43 07/25/19 24 07/25/2023 CBC AUTO W DIFF WBC 6.7 K/uL 4.0-10 .5 Not Available [facility] ([facility]) [address] [facility], [place], [address], 07/25/2023 15:22:25 07/25/19 24 07/25/2023 CBC AUTO W DIFF RBC 5.7 M/mm3 4.7-6. 1 Not Available [facility] ([facility]) [address] [facility], [place], [address], 07/25/2023 15:22:25 07/25/19 24 07/25/2023 CBC AUTO W DIFF HGB 14.8 gm/dL 13.5-1 8.0 Not Available [facility] ([facility]) [address] [place], [address], 07/25/2023 15:22:25 07/25/19 24 07/25/2023 CBC AUTO W DIFF HCT 45.4 % 42.0-5 2.0 Not Available [facility] ([facility]) [address] [place], [address], 07/25/2023 15:22:25 07/25/19 24 07/25/2023 CBC AUTO W DIFF MCV 79.6 fL 78-100 Not Available [facility] ([facility]) [address], [place], [address], 07/25/2023 15:22:25 07/25/19 24 07/25/2023 CBC AUTO W DIFF MCH 26.0 pg 27-31 low Not Available [facility] ([facility]) [address], [place], [address], 07/25/2023 15:22:25 07/25/19 24 07/25/2023 CBC AUTO W DIFF MCHC 32.6 g/dL 32-36 Not Available [facility] ([facility]) [address], [place], [address], 07/25/2023 15:22:25 07/25/19 24 07/25/2023 CBC AUTO W DIFF RDW 13.7 % 11.5-1 4.0 Not Available [facility] ([facility]) [address] , [place], [address], 07/25/2023 15:22:25 07/25/19 24 07/25/2023 CBC AUTO W DIFF platelet count 279 K/uL 150-45 0 Not Available [facility] ([facility]) [address] , [place], [address], 07/25/2023 15:22:25 07/25/19 24 07/25/2023 CBC AUTO W DIFF MPV 10.0 fL 6-9.5 high Not Available [facility] ([facility]) [address] , [place], [address], 07/25/2023 15:22:25 07/25/19 24 07/25/2023 CBC AUTO W DIFF neutrophil% 61.2 % 43-65 Not Available [facility] ([facility]) [address] , [place], [address], 07/25/2023 15:22:25 07/25/19 24 07/25/2023 CBC AUTO W DIFF lymphocyte% 25.7 % 20.5-4 5.5 Not Available [facility] ([facility]) [address], [place], [address], 07/25/2023 15:22:25 07/25/19 24 07/25/2023 CBC AUTO W DIFF monocyte% 9.2 % 5.5-11 .7 Not Available [facility] ([facility]) [address], [place], [address], 07/25/2023 15:22:25 07/25/19 24 07/25/2023 CBC AUTO W DIFF eosinophil% 3.0 % 0.9-2. 9 high Not Available [facility] ([facility]) [address], [place], [address], 07/25/2023 15:22:25 07/25/19 24 07/25/2023 CBC AUTO W DIFF basophil% 0.6 % 0.2-1. 0 Not Available [facility] ([facility]) [address], [place], [address], 07/25/2023 15:22:25 07/25/19 24 07/25/2023 CBC AUTO W DIFF immature granulocytes % 0.3 % 0.0-0. 8 Not Available [facility] ([facility]) [address], [place], [address], 07/25/2023 15:22:25 07/25/19 24 07/25/2023 CBC AUTO W DIFF nucleated red blood cells % 0.0 % Not Available [facility] ([facility]) [address] [place], [address], 07/25/2023 15:22:25 07/25/19 24 07/25/2023 CBC AUTO W DIFF neutrophil# 4.1 K/uL 2.2-4. 8 Not Available [facility] ([facility]) [address] [facility], [place], [address], 07/25/2023 15:22:25 07/25/19 24 07/25/2023 CBC AUTO W DIFF lymphocyte# 1.7 cell/ mcL 1.3-2. 9 Not Available [facility] ([facility]) [address] [facility], [place], [address], 07/25/2023 15:22:25 07/25/19 24 07/25/2023 CBC AUTO W DIFF monocyte# 0.6 cell/ mcL 0.3-0. 8 Not Available [facility] ([facility]) [address] [facility], [place], [address], 07/25/2023 15:22:25 07/25/19 24 07/25/2023 CBC AUTO W DIFF eosinophil# 0.2 cell/ mcL 0-0.2 Not Available [facility] ([facility]) [address] [facility], [place], [address], 07/25/2023 15:22:25 07/25/19 24 07/25/2023 CBC AUTO W DIFF basophil# 0.0 cell/ mcL 0.0-1. 0 Not Available [facility] ([facility]) [address] [place], [address], 07/25/2023 15:22:25 07/25/19 24 07/25/2023 CBC AUTO W DIFF immature gramulocytes # 0.02 K/uL Not Available [facility] ([facility]) [address] [place], [address], 07/25/2023 15:22:25 07/25/19 24 07/25/2023 CBC AUTO W DIFF nucleated red blood cells # 0.00 K/uL Not Available [facility] ([facility]) [address] [place], [address], 07/25/2023 15:22:25 07/25/19 24 07/25/2023 CBC AUTO W DIFF manual differential NO Not Available [facility] ([facility]) [address], [place], [address], 07/25/2023 15:22:25 07/25/19 24 07/25/2023 PT (PROT HROMB IN TIME) W INR prothrombin time 11.0 secon ds 9.3-11 .4 Not Available [facility] ([facility]) [address], [place], [address], 07/25/2023 16:27:47 07/25/19 24 07/25/2023 PT (PROT [...] Mecha nical Heart Valve s Not Available [facility] ([facility]) [address] , [place], [address], 07/25/2023 16:27:47 07/25/19 24 07/25/2023 COMP METAB OLIC PANEL sodium 142 mmol/ L 136-14 5 Not Available [facility] ([facility]) [address] , [place], [address], 07/25/2023 16:32:05 07/25/19 24 07/25/2023 COMP METAB OLIC PANEL potassium 3.7 mmol/ L 3.6-5. 0 Not Available [facility] ([facility]) [address] , [place], [address], 07/25/2023 16:32:05 07/25/19 24 07/25/2023 COMP METAB OLIC PANEL chloride 104 mmol/ L 98-107 Not Available [facility] ([facility]) [address], [place], [address], 07/25/2023 16:32:05 07/25/19 24 07/25/2023 COMP METAB OLIC PANEL carbon dioxide 29.1 mmol/ L 21.0-3 2.0 Not Available [facility] ([facility]) [address], [place], [address], 07/25/2023 16:32:05 07/25/19 24 07/25/2023 COMP METAB OLIC PANEL anion gap 12.6 Not Available [facility] ([facility]) [address], [place], [address], 07/25/2023 16:32:05 07/25/19 24 07/25/2023 COMP METAB OLIC PANEL glucose 85 mg/dL 70-120 Not Available [facility] ([facility]) [address] , [place], [address], 07/25/2023 16:32:05 07/25/19 24 07/25/2023 COMP METAB OLIC PANEL BUN 16 mg/dL 7-18 Not Available [facility] ([facility]) [address], [place], [address], 07/25/2023 16:32:05 07/25/19 24 07/25/2023 COMP METAB OLIC PANEL creatinine 0.8 mg/dL 0.6-1. 3 Not Available [facility] ([facility]) [address] , [place], [address], 07/25/2023 16:32:05 07/25/19 24 07/25/2023 COMP METAB OLIC PANEL glomerular filtration rate >60 mlper min 60- Not Available [facility] ([facility]) [address] , [place], [address], 07/25/2023 16:32:05 07/25/19 24 07/25/2023 COMP METAB OLIC PANEL total protein 7.6 g/dL 6.4-8. 2 Not Available [facility] ([facility]) [address], [place], [address], 07/25/2023 16:32:05 07/25/19 24 07/25/2023 COMP METAB OLIC PANEL albumin 3.5 g/dL 3.4-5. 0 Not Available [facility] ([facility]) [address] , [place], [address], 07/25/2023 16:32:05 07/25/19 24 07/25/2023 COMP METAB OLIC PANEL globulin 4.1 Not Available [facility] ([facility]) [address] , [place], [address], 07/25/2023 16:32:05 07/25/19 24 07/25/2023 COMP METAB OLIC PANEL alb/glob ratio 0.9 0.7-2 Not Available [facility] ([facility]) [address] , [place], [address], 07/25/2023 16:32:05 07/25/19 24 07/25/2023 COMP METAB OLIC PANEL calcium 8.8 mg/dL 8.5-10 .5 Not Available [facility] ([facility]) [address] , [place], [address], 07/25/2023 16:32:05 07/25/19 24 07/25/2023 COMP METAB OLIC PANEL bilirubin total 0.40 mg/dL 0.10-1 .00 Not Available [facility] ([facility]) [address] , [place], [address], 07/25/2023 16:32:05 07/25/19 24 07/25/2023 COMP METAB OLIC PANEL AST (SGOT) 24 U/L 0-37 Not Available [facility] ([facility]) [address] , [place], [address], 07/25/2023 16:32:05 07/25/19 24 07/25/2023 COMP METAB OLIC PANEL ALT (SGPT) 27 U/L 0-65 Not Available [facility] ([facility]) [address], [place], [address], 07/25/2023 16:32:05 07/25/19 24 07/25/2023 COMP METAB OLIC PANEL alk phosphatase 74 U/L 46-116 Not Available [facility] ([facility]) [address], [place], [address], 07/25/2023 16:32:05 07/25/19 24 07/27/2023 FACTO R VIII (8) ACTIV ITY factor VIII (8) activity 159 % 56-140 high [facility] [place] [address] [id number] Lab Direc tor: Linda ho MD, Phone : [phone] Not Available [facility] ([facility]) [address] [facility], [place], [address], 07/27/2023 06:19:41 07/25/19 24 07/27/2023 PROTE IN C FUNTI ONAL protein C functional 102 % 73-180 Perfo rmed at: BN - [facility] [place] [address] [place] [address] [facility] Lab Direc tor: Linda ho MD, Phone : [phone] Not Available [facility] ([facility]) [address] [facility], [place], [address], 07/27/2023 06:19:42 07/25/19 24 07/27/2023 PROTE IN [...] at: BN - [facility] [place] [address] , [place] [address] Lab Direc tor: Linda ho MD, Phone : [phone] Not Available [facility] ([facility]) [address], [place], [address], 07/27/2023 06:19:43 07/25/19 24 08/03/2023 FACTO R [...] Facto r V Leide n (PMID : [id number] 767). Ad ditio nal risk facto rs [...] ders to discu ss resul ts at 4-876 -201- GENE (3637 ). . Test Detai ls: Varia nt holly zed: c.*97 G>A, previ ously refer red to as G2021 0 A . Metho ds/Li mitat ions: DNA holly sis of the F2 gene ([id number]) was perfo rmed by P CR [...] e lindy cteri stics deter mined by [facility]. It has not been clear ed or appro raquel by the Food and Drug Admin istra tion. . Refer ences : Fernanda Macias, Russ FULTON, Sammy Ho, Radha KING, Lucas in ; [facility] Pro fessi onal Pract ice and Guide lines Commi ttee. Adden dum: Rubio morley e of Medic al Briseyda ics conse nsus state ment on facto r V Leide n muta tion testi ng. Briseyda Med. 2020Sep 11. doi: 10.10 38/s4 1436- 021-0 110 8-x. PMID: 34947 767. . Randi BOYD. Proth rombi n Throm bophi za. 2005Jan 31 Updat ed 2020Aug 13 . In: Ricki MP, Bhaskar contreras HH, Mary RA, et al., edito rs. GeneR bassamw s(R) Inter net . Shyam gipson (SD): Unive rsity of Shyam Lowery; 1992- 2020. [...] 018-0 322-z . Epub 2017Apr 13. PMID: 87452 698. Not Available [facility] ([facility]) [address], [place], [address], 08/03/2023 13:12:27 07/25/19 24 08/03/2023 FACTO R II, DNA HOLLY SIS reviewed by: Tacho camp, PhD Direc tor, Molec ular Briseyda ics Perfo rmed at: TG - [facility] [address] , [place] [address] Lab Direc tor: Yaneth Sullivan [facility] , Phone : [phone] Not Available [facility] ([facility]) [address] , [place], [address], 08/03/2023 13:12:27 10/24/19 24 10/24/2023 CBC AUTO W DIFF WBC 6.9 K/uL 4.0-10 .5 Not Available [facility] ([facility]) [address] , [place], [address], 10/24/2023 16:12:13 10/24/19 24 10/24/2023 CBC AUTO W DIFF RBC 5.7 M/mm3 4.7-6. 1 Not Available [facility] ([facility]) [address] , [place], [address], 10/24/2023 16:12:13 10/24/19 24 10/24/2023 CBC AUTO W DIFF HGB 14.7 gm/dL 13.5-1 8.0 Not Available [facility] ([facility]) [address] , [place], [address], 10/24/2023 16:12:13 10/24/19 24 10/24/2023 CBC AUTO W DIFF HCT 46.0 % 42.0-5 2.0 Not Available [facility] ([facility]) [address], [place], [address], 10/24/2023 16:12:13 10/24/19 24 10/24/2023 CBC AUTO W DIFF MCV 80.4 fL 78-100 Not Available [facility] ([facility]) [address] , [place], [address], 10/24/2023 16:12:13 10/24/19 24 10/24/2023 CBC AUTO W DIFF MCH 25.7 pg 27-31 low Not Available [facility] ([facility]) [address] , [place], [address], 10/24/2023 16:12:13 10/24/19 24 10/24/2023 CBC AUTO W DIFF MCHC 32.0 g/dL 32-36 Not Available [facility] ([facility]) [address] , [place], [address], 10/24/2023 16:12:13 10/24/19 24 10/24/2023 CBC AUTO W DIFF RDW 14.3 % 11.5-1 4.0 high Not Available [facility] ([facility]) [address] , [place], [address], 10/24/2023 16:12:13 10/24/19 24 10/24/2023 CBC AUTO W DIFF platelet count 258 K/uL 150-45 0 Not Available [facility] ([facility]) [address] , [place], [address], 10/24/2023 16:12:13 10/24/19 24 10/24/2023 CBC AUTO W DIFF MPV 9.6 fL 6-9.5 high Not Available [facility] ([facility]) [address] , [place], [address], 10/24/2023 16:12:13 10/24/19 24 10/24/2023 CBC AUTO W DIFF neutrophil% 70.1 % 43-65 high Not Available [facility] ([facility]) [address], [place], [address], 10/24/2023 16:12:13 10/24/19 24 10/24/2023 CBC AUTO W DIFF lymphocyte% 18.4 % 20.5-4 5.5 low Not Available [facility] ([facility]) [address], [place], [address], 10/24/2023 16:12:13 10/24/19 24 10/24/2023 CBC AUTO W DIFF monocyte% 8.7 % 5.5-11 .7 Not Available [facility] ([facility]) [address], [place], [address], 10/24/2023 16:12:13 10/24/19 24 10/24/2023 CBC AUTO W DIFF eosinophil% 2.3 % 0.9-2. 9 Not Available [facility] ([facility]) [address], [place], [address], 10/24/2023 16:12:13 10/24/19 24 10/24/2023 CBC AUTO W DIFF basophil% 0.4 % 0.2-1. 0 Not Available [facility] ([facility]) [address] [place], [address], 10/24/2023 16:12:13 10/24/19 24 10/24/2023 CBC AUTO W DIFF immature granulocytes % 0.1 % 0.0-0. 8 Not Available [facility] ([facility]) [address] [place], [address], 10/24/2023 16:12:13 10/24/19 24 10/24/2023 CBC AUTO W DIFF nucleated red blood cells % 0.0 % Not Available [facility] ([facility]) [address] [facility], [place], [address], 10/24/2023 16:12:13 10/24/19 24 10/24/2023 CBC AUTO W DIFF neutrophil# 4.8 K/uL 2.2-4. 8 Not Available [facility] ([facility]) [address], [place], [address], 10/24/2023 16:12:13 10/24/19 24 10/24/2023 CBC AUTO W DIFF lymphocyte# 1.3 cell/ mcL 1.3-2. 9 Not Available [facility] ([facility]) [address], [place], [address], 10/24/2023 16:12:13 10/24/19 24 10/24/2023 CBC AUTO W DIFF monocyte# 0.6 cell/ mcL 0.3-0. 8 Not Available [facility] ([facility]) [address], [place], [address], 10/24/2023 16:12:13 10/24/19 24 10/24/2023 CBC AUTO W DIFF eosinophil# 0.2 cell/ mcL 0-0.2 Not Available [facility] ([facility]) [address], [place], [address], 10/24/2023 16:12:13 10/24/19 24 10/24/2023 CBC AUTO W DIFF basophil# 0.0 cell/ mcL 0.0-1. 0 Not Available [facility] ([facility]) [address], [place], [address], 10/24/2023 16:12:13 10/24/19 24 10/24/2023 CBC AUTO W DIFF immature gramulocytes # 0.01 K/uL Not Available [facility] ([facility]) [address], [place], [address], 10/24/2023 16:12:13 10/24/19 24 10/24/2023 CBC AUTO W DIFF nucleated red blood cells # 0.00 K/uL Not Available [facility] ([facility]) [address], [place], [address], 10/24/2023 16:12:13 10/24/19 24 10/24/2023 CBC AUTO W DIFF manual differential NO Not Available [facility] ([facility]) [address], [place], [address], 10/24/2023 16:12:13 10/24/19 24 10/24/2023 COMP METAB OLIC PANEL sodium 139 mmol/ L 136-14 5 Not Available [facility] ([facility]) [address], [place], [address], 10/24/2023 16:42:07 10/24/19 24 10/24/2023 COMP METAB OLIC PANEL potassium 4.0 mmol/ L 3.6-5. 0 Not Available [facility] ([facility]) [address], [place], [address], 10/24/2023 16:42:07 10/24/19 24 10/24/2023 COMP METAB OLIC PANEL chloride 104 mmol/ L 98-107 Not Available [facility] ([facility]) [address], [place], [address], 10/24/2023 16:42:07 10/24/19 24 10/24/2023 COMP METAB OLIC PANEL carbon dioxide 28.1 mmol/ L 21.0-3 2.0 Not Available [facility] ([facility]) [address], [place], [address], 10/24/2023 16:42:07 10/24/19 24 10/24/2023 COMP METAB OLIC PANEL anion gap 10.9 Not Available [place] [facility] [address] , [place], [address], 10/24/2023 16:42:07 10/24/19 24 10/24/2023 COMP METAB OLIC PANEL glucose 99 mg/dL 70-120 Not Available [facility] ([facility]) [address] , [place], [address], 10/24/2023 16:42:07 10/24/19 24 10/24/2023 COMP METAB OLIC PANEL BUN 16 mg/dL 7-18 Not Available [facility] ([facility]) [address] , [place], [address], 10/24/2023 16:42:07 10/24/19 24 10/24/2023 COMP METAB OLIC PANEL creatinine 0.9 mg/dL 0.6-1. 3 Not Available [facility] ([facility]) [address] , [place], [address], 10/24/2023 16:42:07 10/24/19 24 10/24/2023 COMP METAB OLIC PANEL glomerular filtration rate >60 mlper min 60- Not Available [facility] ([facility]) [address] , [place], [address], 10/24/2023 16:42:07 10/24/19 24 10/24/2023 COMP METAB OLIC PANEL total protein 7.2 g/dL 6.4-8. 2 Not Available [facility] ([facility]) [address] , [place], [address], 10/24/2023 16:42:07 10/24/19 24 10/24/2023 COMP METAB OLIC PANEL albumin 3.6 g/dL 3.4-5. 0 Not Available [facility] ([facility]) [address] , [place], [address], 10/24/2023 16:42:07 10/24/19 24 10/24/2023 COMP METAB OLIC PANEL globulin 3.6 Not Available [facility] ([facility]) [address] [place], [address], 10/24/2023 16:42:07 10/24/19 24 10/24/2023 COMP METAB OLIC PANEL alb/glob ratio 1.0 0.7-2 Not Available [facility] ([facility]) [address], [place], [address], 10/24/2023 16:42:07 10/24/19 24 10/24/2023 COMP METAB OLIC PANEL calcium 8.6 mg/dL 8.5-10 .5 Not Available [facility] ([facility]) [address] , [place], [address], 10/24/2023 16:42:07 10/24/19 24 10/24/2023 COMP METAB OLIC PANEL bilirubin total 0.50 mg/dL 0.10-1 .00 Not Available [facility] ([facility]) [address], [place], [address], 10/24/2023 16:42:07 10/24/19 24 10/24/2023 COMP METAB OLIC PANEL AST (SGOT) 23 U/L 0-37 Not Available [facility] ([facility]) [address], [place], [address], 10/24/2023 16:42:07 10/24/19 24 10/24/2023 COMP METAB OLIC PANEL ALT (SGPT) 39 U/L 0-65 Not Available [facility] ([facility]) [address] , [place], [address], 10/24/2023 16:42:07 10/24/19 24 10/24/2023 COMP METAB OLIC PANEL alk phosphatase 80 U/L 46-116 Not Available [facility] ([facility]) [address] , [place], [address], 10/24/2023 16:42:07 10/25/19 24 10/26/2023 SEDIM ENTAT ION RATE- WESTE RGREN sedimentatio n rate-westerg los 5 mm/HR 0-15 Not Available [facility] ([facility]) [address] [facility], [place], [address], 11/03/2023 15:11:19 10/25/19 24 10/27/2023 C-CHANA CTIVE PROTE IN, QUANT C-reactive protein, quant 15 mg/L 0-10 above high normal Not Available [facility] ([facility]) [address] [facility], [place], [address], 11/03/2023 15:11:21 04/23/20 24 04/23/2024 C-CHANA CTIVE PROTE IN (CRP) C-reactive protein, quant 1.1 mg/dL 0.05-0 .300 high Not Available [facility] ([facility]) [address] [facility], [place], [address], 04/23/2024 10:36:29 04/23/20 24 04/23/2024 SED RATE sed rate auto 4 0-15 Not Available [facility] ([facility]) [address] [facility], [place], [address], 04/23/2024 10:54:51 11/20/19 24 11/20/2023 [email or web address] s duple x US lwr RT ext [facility] Hospit al [address] [place] [address] Phone: Fax: Name: GAYATHRI DENNIS Exam Date: 024 : 1979 Age 43 years Gender : M Access ion: [id number] Physic lou: LUCI BRADFORDi ty: [facility] Facili ty HSV: Outpat ient Exam: [...] Thank you for referr GAYATHRI Rodríguez to [facility]. Legall y authen ticate d by JADYN DÍAZ 11-19 11:51: 02 CC'ed Logic: Orderi ng Provid er: SPENCER OSUNA Attend ing Provid er: SPENCER OSUNA Referr ing Provid er: SPENCER OSUNA Admitt ing Provid er: SPENCER OSUNA [email or web address] - Physical Therapy [facility] [facility], [place], [address], 11/20/2023 12:58:54 11/20/19 24 11/20/2023 CT, angio gram, chest , w/ contr ast [facility] [address] [place] [address] Phone: Fax: Name: GAYATHRI DENNIS Exam Date: : 1979 Age 43 years Gender : M Access ion: [id number] Physic lou: LUCI BRADFORD Facili ty: [facility] Facili ty HSV: Outpat ient Exam: [...] Thank you for referr GAYATHRI Rodríguez to [facility] al. Legall y authen ticate d by JADYN FarnsworthGAMAFouzia Macias IVO 11-19 12:06: 58 CC'ed Logic: Orderi ng Provid er: SPENCER OSUNA Attend ing Provid er: SPENCER OSUNA Referr ing Provid er: SPENCER OSUNA Admitt ing Provid er: SPENCER OSUNA [email or web address] [facility] [address] [place] [address], [place], [address], 11/21/2023 16:18:56 Result Notes Documentation Provider Name and Address Organization Details Recorded Time Ct, Angiogram, Chest, W/ Contrast : [address] [address] Name: WON DENNIS Exam Date: 11/20/2023 : 1980 Age 43 years Gender: M Physician: LUCI BARNES Facility: [facility] Facility HSV: Outpatient Exam: CTA CHEST [...] which may be infectious. Dictated By: Jose Luciaon Transcribed By: Jose Sebastian Transcribed On: 11/20/2023 12:06 PM Legally authenticated by RENALDO DÍAZ 2023-11-20 12:06:58 Electronically signed by: Jose Luciano 11/20/2023 Thank you for referring WON DENNIS to [facility]. Legally authenticated by RENALDO DÍAZ 2023-11-20 12:06:58 CC'ed Logic: Ordering Provider: MOLLY OSUNA Attending Provider: MOLLY OSUNA Referring Provider: MOLLY OSUNA Admitting Provider: MOLLY jaramillo, [place] [facility] [place] 11/21/2023 16:18:56 Problems Name Problem SNOMED Code Status Onset Date Resolution Date Notes Provider Name and Address Organization Details Recorded Time Methicillin resistant Staphylococ cus aureus infection 756656016 Active 2023 Amy jaramillo [place] - [facility] [place] & [place] 4 10:16:00 High risk medication monitoring indicated 4707035818538 9103 Active 2023 Amy jaramillo [place] [facility] [place] 4 10:16:36 Problem Notes None recorded. Procedures Surgical History Date Name Laterality Status Provider Name and Address Organization Details Recorded Time 03/26/20 [address], [place], [address], [place] [facility] [place] 03/18/2024 14:56:10 10/24/19 24 [place], [address], YVON Farnsworth [facility] & [place] 10/23/2023 10:53:19 07/25/19 24 Venipuncture completed Sarah SANZ [facility] & [place] 07/25/2023 14:41:20 amputation of lower limb completed Sarah Farnsworth [facility] & [place] 07/25/2023 13:57:05 Imaging Results None recorded. Procedure Notes None recorded. Medical Equipment None Reported. Allergies Allergen ID Allergen Name Allergen Category Reaction Reaction Severity Criticality Documentation Date Start Date Code Code System Note Provider Name and Address Organization Details Recorded Time 398174 cefdinir medicatio n Not available Not available Not available 06/02/2023 53716 RxNorm Isabel jaramillo, [facility] & [place] 10:06:00 Medications Name Sig Start Date Stop [...] active Not Available Not Available Not Available [facility] 10 billion cell-200 mg sprinkle capsule [...] No t Available Vitals Date Recorded Body weight Body temperature Heart rate Oxygen saturation Oxygen saturation in Arterial blood by Pulse oximetry Systolic And Diastolic Provider Name and Address Organization Details Last Updated DateTime 4 806666. 53 g 97.8 [degF] 89 /min 95 % 95 % 134/82 mm[Hg] Sarah Vidal [facility] & [place] 4 13:54:07 Date Recorded Body height Body mass index (BMI) Body weight Body temperature Heart rate Oxygen saturation Oxygen saturation in Arterial blood by Pulse oximetry Systolic And Diastolic Provider Name and Address Organization Details Last Updated DateTime 4 182.88 cm 43.3 kg/m2 918621. 97 g 98 [degF] 95 /min 96 % 96 % 137/92 mm[Hg] Sarah SANZ [facility] & [place] 4 14:44:48 Date Recorded Body height Body mass index (BMI) Body weight Body temperature Oxygen saturation Oxygen saturation in Arterial blood by Pulse oximetry Heart rate Systolic And Diastolic Provider Name and Address Organization Details Last Updated DateTime 4 182.88 cm 43.2 kg/m2 054318. 81 g 98.6 [degF] 95 % 95 % 86 /min 134/84 mm[Hg] Amy Aquino [facility] & [place] 4 08:59:12 Date Recorded Body height Body mass index (BMI) Body weight Body temperature Oxygen saturation Oxygen saturation in Arterial blood by Pulse oximetry Heart rate Systolic And Diastolic Provider Name and Address Organization Details Last Updated DateTime 4 182.88 cm 42.9 kg/m2 568023. 19 g 98 [degF] 94 % 94 % 70 /min 140/80 mm[Hg] Kalie Farnsworth [facility] & [place] 4 09:24:00 Date Recorded Heart rate Body height Oxygen saturation Oxygen saturation in Arterial blood by Pulse oximetry Body temperature Body mass index (BMI) Body weight Systolic And Diastolic Provider Name and Address Organization Details Last Updated DateTime 5 85 /min 180.34 cm 94 % 94 % 98.8 [degF] 41.7 kg/m2 113880. 12 g 140/96 mm[Hg] [facility] [place] 5 11:13:21 Social History Question Answer Notes LastModified by Organizat ion Details LastModified Time Tobacco Smoking Status Never Smoker YVON Avitia [facility] & [place] 06/02/2023 10:06:28 Do You Have An Advance Directive? No [email or web address] Information not available 04/28/2025 Are You Blind Or Do You Have Difficulty Seeing? No [email or web address] Information not available 04/28/2025 What Was The Date Of Your Most Recent Tobacco Screening? 04/20/2025 [email or web address] Information not available 04/28/2025 Are You Passively Exposed To Smoke? No [email or web address] Information not available 04/28/2025 Sex: Unknown Functional Status Question Answer Note LastModified by Organizat [employer] Details LastModified Time Do you use any illicit or recreational drugs? No [email or web address] Information not available 07/25/2023 What is your level of alcohol consumption? None [email or web address] Information not available 04/28/2025 Mental Status None recorded. Family History Nothing Reported. Medical History Condition Response Clotting Disorder Y Back Problems Y Hypertension Y Immunizations Vaccine Type Date Status Note Provider Nam e and Address Organization Details Recorded Time Td (adult), 2 Lf tetanus toxoid, preservative free, adsorbed 6 completed SarahYVON Witt [facility] & [place] 07/25/2023 13:54:15 Past Encounters Encounter ID Performer Location Encounter Start Date Encounter Closed Date Diagnosis/Indication Diagnosis SNOMED-CT Code Diagnosis ICD10 Code Diagnosis IMO Codes Diagnosis Note [id number] Randy Torres MD [facility] Infecti[facility] s Disease [address] [place] [address] 06/02/2023 09:54:50 06/02/2023 10:26:43 Osteomyelitis 48085888 M86.9 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 Influenza caused by Influenza A virus 011506611 J09.X2 Resolved.. No further oseltamivi r needed. High risk medication monitoring indicated 0549681581 6601575 Z76.89 Related to the daptomycin . I will check a total CK and continue to follow serial levels of this enzyme to make sure he develops no rhabdomyol ysis. [id number] Randy Torres MD [facility] Infecti[facility] Disease [address] [place] [id number] 06/09/2023 10:23:03 06/09/2023 10:54:12 Osteomyelitis 42645878 M86.9 Occurring in the right BKA stump [...] time. Methicilli n resistant Staphylococcus aureus infection 040716544 A49.02 As above High risk medication monitoring indicated 6650552109 0268550 Z76.89 This is related to the daptomycin . I will continue to monitor his total CK levels closely. [id number] Randy Torres MD [facility] Infecti[facility] Disease [address] [place] [id number] 06/28/2023 10:37:09 06/28/2023 11:22:08 Osteomyelitis 98799605 M86.9 Occurring in the right BKA stump [...] week. Methicilli n resistant Staphylococcus aureus infection 704821517 A49.02 As above [id number] Randy Torres MD [facility] Infecti[facility] s Disease [address] [place] [id number] 07/06/2023 09:38:06 07/06/2023 10:00:10 Osteomyelitis 20707132 M86.9 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 Methicilli n resistant Staphylococcus aureus infection 536014083 A49.02 As above Adverse re action to drug 42853759 T50.905A Related to doxycyclin e. This is gastrointe stinal in nature. I will check his liver function testing to make sure he is not developing any hepatotoxi city. I will drop the dose to 100 mg per day. I want him to continue to take it with food. I will re-evaluat e next week. [id number] Randy Torres MD [facility] Infectiou s Disease [address] [facility] [address] [place] [id number] 07/12/2023 08:53:12 07/12/2023 09:54:35 Osteomyelitis 93056066 M86.9 Occurring in the right BKA stump [...] month. Methicilli n resistant Staphylococcus aureus infection 612596196 A49.02 As above [id number] Luci Barnes PA-C [facility] [address] [facility] [address] [place] [id number] 07/25/2023 13:39:19 07/26/2023 06:33:52 Deep venous thrombosis 690870399 I82.409 Patient has a history of osteomyeli [...] performed when patient was hospitaliz ed at [facility] on May 26, 2023 with normal antithromb in 3 activity. No evidence of factor 5 Leiden mutation. Discussed with patient will order additional labs for further evaluation acquired hypercoagu lable disorder today. Discussed will likely continue on least the prophylact ic dose of Eliquis lifelong due to separate occurrence s of blood clots. Pulmonary embolism 38602 003 I26.99 Patient has a history of [...] s of blood clots. Anticoagulant therapy 18 5319602 Z79.01 Patient continues on Eliquis 5 mg 1 tab p.o. b.i.d.. He is tolerating without trouble. Discussed will likely continue on least the prophylact ic dose of Eliquis lifelong due to separate occurrence s of blood clots. [id number] Luci Barnes PA-C [facility] [address] [place] [address] 10/24/2023 14:29:27 10/24/2023 15:33:34 Deep venous thrombosis 492613889 I82.409 Patient has a history of osteomyeli [...] performed when patient was hospitaliz ed at [facility] on May 26, 2023 with [...] Will follow up labs today. Pulmonary embolism 27364 003 I26.99 Patient has a history of [...] follow up labs today. Anticoagulant therapy 18 6951247 Z79.01 Patient continues on Eliquis 5 mg 1 tab p.o. b.i.d.. He is tolerating without trouble. Discussed will continue on least the prophylact ic dose of Eliquis lifelong due to separate occurrence s of blood clots. Will follow up venous duplex of lower extremity and chest CTA to make sure no evidence of embolism before reducing Eliquis dose to 2.5 mg b.i.d. [id number] Randy Torres MD [facility] Infecti[facility] s Disease [address] [place] [address] 10/25/2023 08:49:58 10/25/2023 10:57:40 Osteomyelitis 81197391 M86.9 Occurring in the right BKA stump [...] months. Methicilli n resistant Staphylococcus aureus infection 126746511 A49.02 As above High risk medication monitoring indicated 9561379239 8708855 Z76.89 This is related to the chronic suppressiv e doxycyclin e. I reviewed his liver function testing from yesterday. There is no evidence of any hepatotoxi city. I will continue to monitor this at each visit. I also counseled him about the risk of photosensi tivity with doxycyclin e. [id number] Randy Torres MD [facility] Infectiou s Disease -[address] [place] [address] 04/23/2024 09:14:33 04/23/2024 09:34:49 Osteomyelitis 17288129 M86.9 Occurring in the right BKA stump [...] month. Methicilli n resistant Staphylococcus aureus infection 491357678 A49.02 As above [id number] Randy Torres MD [facility] Infectiou s Disease -105 [address] [facility] [address] [place] [address] 04/28/2025 11:00:57 04/28/2025 11:33:23 Osteomyelitis 21662187 M86.9 693394 This patient has a recurrentc hronic osteomyeli [...] week. Methicilli n resistant Staphylococcus aureus infection 233639777 B95.62 9208536 As above Health Concerns Section Related Observation LastModified by Organization Detai ls LastModified Time None Recorded Concern Status LastModified by Organization Details LastModified Time None Recorded Advance Directives Directive N: Payers Insurance Date Sequence Insurance Name Policy Number Policy Brantley Covered Member ID Brantley Member ID Guarantor Name 01/27/2024 1 [place] [id number] Won Dennis [id number] Won Dennis 04/28/2025 1 MEDICAID-[facility] - FFS/TRADITIONA L Won Dennis [id number] Won Dennis 04/28/2025 1 [employer] Won Dennis [id number] Won Dennis 04/28/2025 2 [employer] [place]MEDICAID REPLACEMENT - HMO) Won Dennis [id number] Won Dennis Notes Date Note Type Note Provider Name and Address Organization Details Recorded Time 07/25/2023 text/html 43-year-old male presents for evaluation [...] Labs performed when patient was hospitalized at [facility] on May 26, 2023 with normal antithrombin 3 activity. No evidence of factor 5 Leiden mutation. Discussed with patient will order additional labs for further evaluation acquired hypercoagulable disorder today. Discussed will likely continue on least the prophylactic dose of Eliquis lifelong due to separate occurrences of blood clots. Luci Barnes PA-C [address] [facility], [place], [address], [place] [facility] [place] & [place] 07/25/2023 15:32:35 10/24/2023 text/html 43-year-old male presents [...] Labs performed when patient was hospitalized at [facility] on May 26, 2023 with [...] follow up labs today. Luci Barnes PA-C [address], [place], [address], [facility] 10/24/2023 15:43:34 10/25/2023 text/html ROS as noted in the HPI This is a 42-year-old white male following up with mi for right BKA stump osteomyelitis due to [...] well. 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 Since his debridement, he completed 6 weeks of intravenous daptomycin and 1 year of suppressive doxycycline. He is remained infection free. His stump is fully healed. No fever. No other issues. He is tolerating the doxycycline well. Randy Torres MD [address], [place], [address], [facility] 04/23/2024 09:31:22 04/28/2025 text/html ROS as noted in the HPI This is a 44-year-old white male who is following up with mi for a right stump infection due to [...] issues tolerating the daptomycin. Randy Torres MD [address], [place], [address], [facility] - [place] & [place] 04/28/2025 11:42:44
--- OUTSIDE RECORDS SUMMARY | 2025-04-29 15:01 | XMS_ITS | Encounter Summary ---
Author Organization [facility] Address [address] [place] [address] Care Team Providers Care Carpet Inspector Name Role Phone Provider, No Known [...] 2:25 PM EDT Cherri Grimm RN * [place] Suicide Severity Rating Scale (Screener/Recent Self-Report) Question [...] documented as of this encounter Care Teams Carpet Inspector Relationship Specialty Start Date End Date Provider, No Known [facility] [place] [address] PCP - General 05/09/23 documented as of this encounter
--- OUTSIDE RECORDS SUMMARY | 2025-04-29 15:01 | XMS_ITS | Encounter Summary ---
Author Organization Healthcare Address [address] [place] [address] Care Team Providers Care Tank House Supervisor Name Role Phone Unavailable Primary Care Provider Unavailabl e Encounter Details Date Type Department Care Team (Late st Contact Info) Description 07/20/2022 Lab Requisition [facility] [address] [place] [address] Sushil Dean MD [address] [place] [address] Encounter for general adult medical examination without [...] at day 4 07/27/2022 11:32 AM EST [facility] Bone Specimen from bone / Unknown 07/20/2022 1:36 PM EST 07/20/2022 5:52 PM EST us Sushil Dean MD LAB MICROBIOLOGY - GENERAL O RDERABLES Final Result Performing Organization Address City/[facility] Co de Phone Number HEALTHCARE LAB [address] [place] [address] * Bone Culture and Gram Stain (07/20/2022 1:36 PM EST) Culture No growth at day 4 2022 9:16 AM EST [facility] Gram Stain Result Rare Polymorphonuclear leukocytes 07/24/2022 9:16 AM EST [facility] Gram Stain Result No organisms seen 07/24/2022 9:16 AM EST [facility] Bone Specimen from bone / Unknown 07/20/2022 1:36 PM EST 07/20/2022 5:52 PM EST us Sushil Dean MD LAB MICROBIOLOGY - GENERAL O RDERABLES Final Result Performing Organization Address City/[facility] Co de Phone Number HEALTHCARE [facility] [address] [place] [address] documented in this encounter Visit Diagnoses Diagnosis Encounter for general adult medical examination without abnormal findings documented in this encounter
--- OUTSIDE RECORDS SUMMARY | 2025-04-29 15:01 | XMS_ITS | Encounter Summary ---
Author Organization Healthcare Address [address] [place] [address] Care Team Providers Care Transportation Department Head Name Role Phone Unavailable Primary Care Provider Unavailabl e Encounter Details Date Type Department Care Team (Late st Contact Info) Description 08/12/2022 Lab Requisition [facility] [address] [place] [address] Sushil Dean MD [address] [place] [address] Encounter for general adult medical examination without [...] has been identified using the FDA Approved SeeClickFixer CA System The organism value for this [...] O ERIC Final Result Performing Organization Address City/[facility] de Phone Number HEALTHCARE LAB [address] [place] [address] * Bone Culture and Gram Stain (08/12/2022 [...] RDERABLES Final Result Performing Organization Address City/[facility] de Phone Number [facility] [address] [place] [address] documented in this encounter Visit Diagnoses Diagnosis Encounter for general adult medical examination without abnormal findings documented in this encounter
--- OUTSIDE RECORDS SUMMARY | 2025-04-29 15:01 | XMS_ITS | Encounter Summary ---
Author Organization Healthcare Address [address] [place] [address] Care Team Providers Care Deputy Sheriff/Investigator Name Role Phone Unavailable Primary Care Provider Unavailabl e Encounter Details Date Type Department Care Team (Late st Contact Info) Description 05/17/2023 Lab Requisition [facility] [address] [place] [address] Sushil Dean MD [facility] [address] [place] [address] Encounter for general adult medical examination without [...] O RDERABLES Final Result Performing Organization Address City/[facility] Co de Phone Number [facility] [address] [place] [address] * Bone Culture and Gram Stain (05/17/2023 [...] O RDERABLES Final Result Performing Organization Address [facility] Co de Phone Number [facility] [address] [place] [address] documented in this encounter Visit Diagnoses Diagnosis Encounter for general adult medical examination without abnormal findings documented in this encounter
--- OUTSIDE RECORDS SUMMARY | 2025-04-29 15:01 | XMS_ITS | Clinical Summary ---
Author Organization [facility] Address [address] [place] [address] Care Team Providers Care Sales And Service Specialist Name Role Phone Provider, No Known [...] Discontinue d(Stop Taking at Discharge) Lactobacillus- Inulin ([facility] [employer] [facility]) capsule Take 200 mg by [...] Description 04/08/2025 3:34 PM EDT Anesthesia [place] [facility] [place] [place] [address] [place] [phone] Ulises Hoffman MD Wells, Jeremy B., MD 04/08/2025 2:45 PM EDT - 04/08/2025 4:04 PM EDT Surgery [facility] OR [address] [place] [address] Sushil Dean Jr., MD LEG DEBRIDEMENT AND IRRIGATION 04/07/2025 8:36 PM EDT Anesthesia Event [facility] OR [address] [place] [address] Luci Alonso DO 04/07/2025 6:00 PM EDT - 04/07/2025 6:52 PM EDT Surgery [facility] OR [address] [place] [address] Sushil Dean Jr., MD LEG DEBRIDEMENT, IRRIGATION 04/04/2025 4:10 PM EDT - 04/11/2025 1:58 PM EDT Hospital Encounter [facility] 5G [address] [place] [address] Mario Crowley DO Anderson, Laurie, [...] = 0.6 oz pur e alcohol) [facility] Utilities Answer Date Recorded In the past 12 months has [employer], gas, oil, or water [employer] threatened to shut off services in your [...] this topic Medical Devices Implanted Type Area Mink Rancher Device Identifier Shelf Expiration Date Model / Serial / Lot Dev Wnd/Cls Contrl Tiss Stratafix Spiral Pls Pds Ct1 0 22cm - [id number] Implanted:Qty: 1 on 04/08/2025 by Sushil Dean Jr., MD at [facility] Implant Right: Leg [employer] 12/07/2025 [id number] / [id number] Procedures Procedure Name Priority [...] time period is included. Pathologist [facility] WBC 7.87 3.40 - 10.80 10*3/mm3 04/11/2025 4:02 AM EDT [facility] RBC 4.70 4.14 - 5.80 10*6/mm3 04/11/2025 4:02 AM EDT [facility] Hemoglobin 12.8(L) 13.0 - 17.7 g/dL 04/11/2025 4:02 AM EDT [facility] Hematocrit 40.5 37.5 - 51.0 % 04/11/2025 4:02 AM EDT [facility] MCV 86.2 79.0 - 97.0 fL 04/11/2025 4:02 AM EDT [facility] MCH 27.2 26.6 - 33.0 pg 04/11/2025 4:02 AM EDT [facility] MCHC 31.6 31.5 - 35.7 g/dL 04/11/2025 4:02 AM EDT [facility] RDW 12.9 12.3 - 15.4 % 04/11/2025 4:02 AM EDT [facility] RDW-SD 40.5 37.0 - 54.0 fl 04/11/2025 4:02 AM EDT [facility] MPV 9.2 6.0 - 12.0 fL 04/11/2025 4:02 AM EDT [facility] Platelets 267 140 - 450 10*3/mm3 04/11/2025 4:02 AM EDT [facility] Neutrophil % 59.5 42.7 - 76.0 % 04/11/2025 4:02 AM EDT [facility] Lymphocyte % 26.3 19.6 - 45.3 % 04/11/2025 4:02 AM EDT [facility] Monocyte % 9.3 5.0 - 12.0 % 04/11/2025 4:02 AM [facility] Eosinophil % 4.1 0.3 - 6.2 % 04/11/2025 4:02 AM EDT [facility] Basophil % 0.4 0.0 - 1.5 % 04/[facility] Immature Grans % 0.4 0.0 - 0.5 % 04/11/2025 4:02 AM [facility] Neutrophils, Absolute 4.69 1.70 - 7.00 10*3/mm3 04/11/2025 4:02 AM [facility] Lymphocytes, Absolute 2.07 0.70 - 3.10 10*3/mm3 04/11/2025 4:02 AM [facility] Monocytes, Absolute 0.73 0.10 - 0.90 10*3/mm3 04/11/2025 4:02 AM [facility] Eosinophils, Absolute 0.32 0.00 - 0.40 10*3/mm3 04/11/2025 4:02 AM [facility] Basophils, Absolute 0.03 0.00 - 0.20 10*3/mm3 04/11/2025 4:02 AM [facility] Immature Grans, Absolute 0.03 0.00 - 0.05 10*3/mm3 04/11/2025 4:02 AM [facility] nRBC 0.0 0.0 - 0.2 /100 WBC 04/11/2025 4:02 AM [facility] Blood Venipuncture / Unknown 04/11/2025 3:40 AM EDT 04/11/2025 3:59 AM EDT Sushil Dean Jr., MD LAB BLOOD ORDERABLES Fi nal Result [facility]
[address] [place] [address], * (ABNORMAL) Comprehensive Metabolic Panel (04/11/2025 3:40 AM EDT) Only the most recent of2 resultswithin the time period is included. Glucose 108(H) 65 - 99 mg/dL 04/11/2025 4:19 AM EDT [facility] BUN 12.5 6.0 - 20.0 mg/dL 04/11/2025 4:19 AM EDT [facility] Creatinine 0.68(L) 0.76 - 1.27 mg/dL 04/11/2025 4:19 AM EDT [facility] Sodium 140 136 - 145 mmol/L 04/11/2025 4:19 AM EDT [facility] Potassium 3.8 3.5 - 5.2 mmol/L 04/11/2025 4:19 AM EDT [facility] Chloride 105 98 - 107 mmol/L 04/11/2025 4:19 AM EDT [facility] CO2 28.2 22.0 - 29.0 mmol/L 04/11/2025 4:19 AM EDT [facility] Calcium 8.2(L) 8.6 - 10.5 mg/dL 04/11/2025 4:19 AM EDT [facility] Total Protein 6.1 6.0 - 8.5 g/dL 04/11/2025 4:19 AM EDT [facility] Albumin 3.1(L) 3.5 - 5.2 g/dL 04/11/2025 4:19 AM EDT [facility] ALT (SGPT) 52(H) 1 - 41 U/L 04/11/2025 4:19 AM EDT [facility] AST (SGOT) 40 1 - 40 U/L 04/11/2025 4:19 AM EDT [facility] Alkaline Phosphatase 99 39 - 117 U/L 04/11/2025 4:19 AM EDT [facility] Total Bilirubin 0.2 0.0 - 1.2 mg/dL 04/11/2025 4:19 AM EDT [facility] Globulin 3.0 gm/dL 04/11/2025 4:19 AM EDT [facility] Comment:Calculated Result A/G Ratio 1.0 g/dL 04/11/2025 4:19 AM EDT [facility] BUN/Creatinine Ratio 18.4 7.0 - 25.0 04/11/2025 4:19 AM EDT [facility] Anion Gap 6.8 5.0 - 15.0 mmol/L 04/11/2025 4:19 AM EDT [facility] eGFR 117.5 >60.0 mL/min/1.7 3 04/11/2025 4:19 AM EDT [facility] Blood Venipuncture / [...] race as a factor us Rosario Hill MECHANICAL PROCESS ENGINEER LAB BLOOD ORDERABLES Final Result [facility]
[address] [place] [id number], * Heparin Anti-Xa (04/10/2025 3:46 AM EDT) Only the most recent of13 resultswithin the time period is included. Heparin Anti-Xa (UFH) 0.35 0.30 - 0.70 IU/ml 04/10/2025 4:23 AM EDT [facility] Blood Venipuncture / Unknown 04/10/2025 3:46 AM EDT 04/10/2025 3:53 AM EDT Larisa Hamilton [facility] LAB BLOOD ORDERABLES Final R esult [facility]
[address] [place] [address], * (ABNORMAL) Basic Metabolic Panel (04/10/2025 3:46 AM EDT) Only the most recent of6 resultswithin the time period is included. [facility] Glucose 125(H) 65 - 99 mg/dL 04/10/2025 4:20 AM EDT [facility] BUN 15.9 6.0 - 20.0 mg/dL 04/10/2025 4:20 AM EDT [facility] Creatinine 0.77 0.76 - 1.27 mg/dL 04/10/2025 4:20 AM EDT [facility] Sodium 137 136 - 145 mmol/L 04/10/2025 4:20 AM EDT [facility] Potassium 3.9 3.5 - 5.2 mmol/L 04/10/2025 4:20 AM EDT [facility] Chloride 102 98 - 107 mmol/L 04/10/2025 4:20 AM EDT [facility] CO2 26.9 22.0 - 29.0 mmol/L 04/10/2025 4:20 AM EDT [facility] Calcium 7.9(L) 8.6 - 10.5 mg/dL 04/10/2025 4:20 AM EDT [facility] BUN/Creatinine Ratio 20.6 7.0 - 25.0 04/10/2025 4:20 AM EDT [facility] Anion Gap 8.1 5.0 - 15.0 mmol/L 04/10/2025 4:20 AM EDT [facility] eGFR 113.2 >60.0 mL/min/1.7 3 04/10/2025 4:20 AM EDT [facility] Blood Venipuncture / Unknown 04/10/2025 3:46 AM EDT 04/10/2025 3:52 AM EDT Narrative [facility] - 04/10/2025 4:20 AM [...] DO LAB BLOOD ORDERABLES Final Resul t [facility]
[address] [place] [address], * Wound Culture - Swab, Leg, Right (04/08/2025 3:40 PM EDT) Only the most recent of3 resultswithin the time period is included. Wound Culture No growth at 3 days ALIZA 04/11/2025 10:40 AM EDT [facility] Gram Stain Few (2+) WBCs seen 04/11/2025 10:40 AM EDT [facility] Gram Stain No organisms seen 04/11/2025 10:40 AM EDT [facility] Swab Structure of right lower limb / Unknown 04/08/2025 3:40 PM EDT 04/08/2025 8:05 PM EDT Sushil Dean Jr., MD MICROBIOLOGY - GENERAL ORDERABLES Final Result Performing Organization Address City/[facility]/ZIP Co de Phone Number [facility]
[address] [place] [address], [facility]
[address] [place] [address], [place] [phone] * Anaerobic Culture - Swab, Leg, Right [...] GENERAL ORDERABLES Final Result Performing Organization Address [facility] Co de Phone Number [facility]
[address] [place] [address], * Scan Slide (04/08/2025 8:41 AM EDT) RBC Morphology Normal Normal 04/08/2025 11:02 AM EDT [facility] WBC Morphology Normal Normal 04/08/2025 11:02 AM EDT [facility] Platelet Estimate Adequate Normal 04/08/2025 11:02 AM EDT [facility] Clumped Platelets Present None Seen 04/08/2025 11:02 AM EDT [facility] Blood Venipuncture / Unknown 04/08/2025 8:41 AM EDT 04/08/2025 9:10 AM EDT Una Perla PharmD LAB BLOOD ORDERABLES Final R esult Performing Organization Address City/[facility]/ZIP Co de Phone Number [facility]
[address] [place] [address], [place] [phone] * FL C Arm During Surgery (04/07/2025 [...] (1+) WBCs seen 04/11/2025 10:36 AM EDT [facility] Gram Stain No organisms seen 04/11/2025 10:36 AM EDT [facility] Tissue Structure of right lower limb / Unknown 04/07/2025 9:13 PM EDT 04/08/2025 4:54 AM EDT us Sushil Dean Jr., MD MICROBIOLOGY - GENERAL ORDERABLES Final Result [facility]
[address] [place] [address], [facility]
[address] [place] [address], * BH AN ETT AIRWAY (04/07/2025 8:44 [...] [place] 04/07/2025 9:58 AM EDT Workstation ID: [id number] Narrative 04/07/2025 9:58 AM EDT MRI TIBIA [...] [place] 04/07/2025 9:58 AM EDT Workstation ID: [id number] Sushil Dean Jr., MD IMG MRI ORDERABLES Mary Beth l Result * Potassium (04/06/2025 7:16 PM EDT) Potassium 4.0 3.5 - 5.2 mmol/L 04/06/2025 7:53 PM EDT [facility] Blood Venipuncture / Unknown 04/06/2025 7:16 PM EDT 04/06/2025 7:35 PM EDT Jason Álvarez DO LAB BLOOD ORDERABLES Final Resul t Performing Organization Address City/[facility]/ZIP Co de Phone Number [facility]
[address] [place] [address], * CK (04/05/2025 12:15 PM EDT) Creatine Kinase 140 20 - 200 U/L 04/05/2025 1:31 PM EDT [facility] Blood Venipuncture / Unknown 04/05/2025 12:15 PM EDT 04/05/2025 1:03 PM EDT Carlton Mead MD LAB BLOOD ORDERABLES Final R esult Performing Organization Address City/[facility]/ZIP Co de Phone Number [facility]
[address] [place] [address], * (ABNORMAL) aPTT (04/05/2025 3:54 AM EDT) Only the most recent of2 resultswithin the time period is included. PTT 35.3(L) 60.0 - 90.0 seconds 04/05/2025 4:31 AM EDT [facility] Blood Venipuncture / Unknown 04/05/2025 3:54 AM EDT 04/05/2025 4:15 AM EDT Narrative [facility] - 04/05/2025 4:31 AM EDT PTT = The equivalent PTT values for the therapeutic range of heparin levels at 0.3 to 0.5 U/ml are 60 to 70 seconds. [employer] LAB BLOOD ORDERABLES Final R esult Performing Organization Address City/[facility]/ZIP Co de Phone Number [facility]
[address] [place] [address], * (ABNORMAL) Protime-INR (04/05/2025 12:18 AM EDT) Pathologist [facility] Protime 15.9(H) 12.2 - 15.3 Seconds 04/05/2025 12:53 AM EDT [facility] INR 1.19(H) 0.89 - 1.12 04/05/2025 12:53 AM EDT [facility] Blood Venipuncture / Unknown 04/05/2025 12:18 AM EDT 04/05/2025 12:37 AM EDT [employer] PharmD LAB BLOOD ORDERABLES Final R esult Performing Organization Address City/[facility]/ZIP Co de Phone Number [facility]
[address] [place] [address], * POC Creatinine (04/04/2025 2:49 PM EDT) Pathologist [facility] Creatinine 1.10 0.60 - 1.30 mg/dL 04/07/2025 7:14 PM EDT [facility] Comment:Serial Number: [id number]: [id number] Venous Blood 04/04/2025 2:49 PM EDT 04/07/2025 7:14 PM EDT Jason Álvarez DO POINT OF CARE TEST ORDERABLES Fi nal Result Performing Organization Address [facility] Co de Phone Number [facility]
[address] [place] [address], * (ABNORMAL) Sedimentation Rate (04/04/2025 2:47 PM EDT) Sed Rate 51(H) 0 - 15 mm/hr 04/04/2025 3:06 PM EDT [facility] Blood Venipuncture / Unknown 04/04/2025 2:47 PM EDT 04/04/2025 2:52 PM EDT Mario Crowley LAB BLOOD ORDERABLES Fin al Result Performing Organization Address [facility] de Phone Number [facility]
[address] [place] [address], * (ABNORMAL) C-reactive Protein (04/04/2025 2:47 PM EDT) C-Reactive Protein 8.57(H) 0.00 - 0.50 mg/dL 04/04/2025 3:26 PM EDT [facility] Blood Venipuncture / Unknown 04/04/2025 2:47 PM EDT 04/04/2025 2:52 PM EDT Mario Crowley DO LAB BLOOD ORDERABLES Fin al Result Performing Organization Address [facility] Co de Phone Number [facility]
[address] [place] [address], from Last 3 Months Additional Health Concerns [...] Of Support Discussed With: Patient Care Teams Sales And Service Specialist Relationship Specialty Start Date End Date Provider, No Known [facility] [place] [address] PCP - General 05/09/23
--- OUTSIDE RECORDS SUMMARY | 2025-04-29 15:01 | XMS_ITS | Encounter Summary ---
Author Organization Healthcare Address [address] [place] [address] Care Team Providers Care Traffic Sign Erection Supervisor Name Role Phone Unavailable Primary Care Provider Unavailabl e Encounter Details Date Type Department Care Team (Late st Contact Info) Description 07/20/2022 Lab Requisition [facility] [address] [place] [address] Sushil Dean MD [address] [place] [address] Encounter for general adult medical examination without [...]
--- OUTSIDE RECORDS SUMMARY | 2025-04-29 15:01 | XMS_ITS | Encounter Summary ---
Author Organization Healthcare Address [address] [place] [address] Care Team Providers Care Typewriter Operator Automatic Name Role Phone Unavailable Primary Care Provider Unavailabl e Encounter Details Date Type Department Care Team (Late st Contact Info) Description 05/13/2023 Lab Requisition [facility] [address] [place] [address] Sushil Dean MD [address] [facility]. [address] [place] [address] Encounter for general adult medical examination without [...] RDERABLES Final Result Performing Organization Address [facility] Co de Phone Number [facility] [address] [place] [address] * Anaerobic Culture (05/13/2023 9:17 AM EDT) Culture No growth at day 4 05/20/2023 10:35 AM EST [facility] Bone 05/13/2023 9:17 AM EDT 05/13/2023 1:25 PM EDT us Sushil Dean MD LAB MICROBIOLOGY - GENERAL O RDERABLES Final Result Performing Organization Address [facility] de Phone Number [facility] [address] [place] [address] * Bone Culture and Gram Stain (05/13/2023 [...] RDERABLES Final Result Performing Organization Address [facility] de Phone Number [facility] [address] [place] [address] documented in this encounter Visit Diagnoses Diagnosis Encounter for general adult medical examination without abnormal findings documented in this encounter
--- OUTSIDE RECORDS SUMMARY | 2025-04-29 15:01 | XMS_ITS | Encounter Summary ---
Author Organization Healthcare Address [address] [place] [address] Care Team Providers Care Ios Developer Name Role Phone Unavailable Primary Care Provider Unavailabl e Encounter Details Date Type Department Care Team (Late st Contact Info) Description 10/01/2022 Lab Requisition [facility] [address] [place] [address] Sushil Dean MD [address] [facility]. [address] [place] [address] Encounter for general adult medical examination without [...] has been identified using the FDA Approved [employer] [place] System The organism value for this [...] 10/04/2022 2:17 PM EDT Refer to culture [id number] FOR SUSCEPTIBILITIES ON NEELIMA ALBICANS us Sushil Dean MD LAB MICROBIOLOGY - GENERAL O RDERABLES Final Result [facility] [address] [place] [address] documented in this encounter Visit Diagnoses Diagnosis Encounter for general adult medical examination without abnormal findings documented in this encounter
--- OUTSIDE RECORDS SUMMARY | 2025-04-29 15:01 | XMS_ITS | Clinical Summary ---
Author Organization Healthcare Address [address] [place] [address] Care Team Providers Care Maintenance Pipefitter Name Role Phone Unavailable Primary Care Provider [...]
--- OUTSIDE RECORDS SUMMARY | 2025-04-29 15:01 | XMS_ITS | Encounter Summary ---
Author Organization [facility] Address [address] [place] [address] Care Team Providers Care Cadd Operator Name Role Phone Unavailable Primary Care Provider Unavailabl e Encounter Details Date Type Department Care Team (Late st Contact Info) Description 10/03/2022 Lab Requisition [facility] [address] [place] [address] Dalila Cox MD [address] [place], [place] [id number] Encounter for general adult medical examination without [...] Culture Neelima albicans(A) 10/05/2022 11:58 AM EDT [facility] Comment: This result was determined by MALDI tof Mass spectrometry. This assay was developed and its performance characteristics determined by [facility] as appropriate for clinical purposes. [...] Edited Result - Final [facility] [address] [place] [address] documented in this encounter Visit Diagnoses Diagnosis Encounter for general adult medical examination without abnormal findings documented in this encounter
--- OUTSIDE RECORDS SUMMARY | 2025-04-29 15:01 | XMS_ITS | Encounter Summary ---
Author Organization Healthcare Address [address] [place] [address] Care Team Providers Care Soft Iron Inspector Name Role Phone Unavailable Primary Care Provider Unavailabl e Encounter Details Date Type Department Care Team (Late st Contact Info) Description 10/19/2022 Lab Requisition [facility] [address] [place] [address] Sushil Dean MD [address] [place] [address] Encounter for general adult medical examination without [...] by MALDI tof mass spectrometry using the [place] database and is for research use only. The organism value for this result has been updated. These results have been appended to the previously preliminary verified report. Bone Specimen from bone / Unknown 10/19/2022 5:17 PM EDT 10/19/2022 9:49 PM EDT Sushil Dean MD LAB MICROBIOLOGY - GENERAL O RDERABLES Final Result Performing Organization Address [facility] de Phone Number [facility] [address] [place] [phone] * Bone Culture and Gram Stain (10/19/2022 5:17 PM EDT) Culture No growth at day 4 2022 8:14 AM EDT [facility] Gram Stain Result Few Polymorphonuclear leukocytes 10/23/2022 8:14 AM EDT [facility] Gram Stain Result No organisms seen 10/23/2022 8:14 AM EDT [facility] Bone Specimen from bone / Unknown 10/19/2022 5:17 PM EDT 10/19/2022 9:49 PM EDT Sushil Dean MD LAB MICROBIOLOGY - GENERAL O RDERAADDI Final Result Performing Organization Address [facility] Phone Number [facility] [address] [place] [address] documented in this encounter Visit Diagnoses Diagnosis Encounter for general adult medical examination without abnormal findings documented in this encounter
== END 2025-04-29 23:59 | disposition home or self-care (01) ==
LOC: INF 14:50
PROVIDERS: PCP Nurse Practitioner Family; Visit Provider Internal Medicine Infectious Disease
DX: M86.9 Osteomyelitis, unspecified (principal); B95.62 Methicillin resistant Staphylococcus aureus infection as the cause of diseases classified elsewhere
CPT/HCPCS: 96365; J0878

== ENCOUNTER 2025-04-30 09:01 | Outpatient (CLI) | payer MEDICARE, SELFPAY ==
--- OUTSIDE RECORDS SUMMARY | 2023-12-12 05:00 | XMS_ITS ---
Author Organization Ayaka Address 1210 [facility] 36 [facility] 2C [place] [phone] Care Team Providers Care Radiation Engineer Name Role Phone Zeeshan Salazar Primary Care Provider Macario Burkett [phone] REASON FOR VISIT 6 Month Check Up Encounters Encounter Location Date Provider Diagnosis [place] 1210 [facility] [address] [place] [phone] 12/12/2023 Macario Burkett Plan Of Treatment No Information Progress Notes * Won MEDRANO ZeeshanDOB: [birth year] (44 yo M)Acc No.[id number]:12/12/2023 Progress Notes Patient: Won SPANN Provider: Colleen Burkett M.D. :1980 A ge:43 Y S ex:Male Date:12/12/2023 Address:[address] [place] [address] [id number] Pcp:Zeeshan Salazar Subjective: * Chief Complaints: * 1 . 6 Month Check Up. * Medical History: Objective: * Vitals: Assessment: Plan: * Treatment: * Images: Billing Information: * Visit Code: * Procedure Codes: * Electronic signature of Micaela Burkett MD on 04/30/2025 at 09:14 AM EDT Sign off status: Pending * Provider: Colleen Burkett M.D. Date: 12/12/2023 Generated for Nany jorgensen/Elaine/Pro on: 1 09:14 AM EDT
--- OUTSIDE RECORDS SUMMARY | 2025-04-04 16:10 | XMS_ITS | Encounter Summary ---
Author Organization [facility] Address [address] [place] [address] Care Team Providers Care Shingles Roofer Name Role Phone Provider, No Known Primary Care Provider Unavail able Reason for Visit * Reason Comments Leg Swelling * Auth/Cert Specialty Diagnoses / Procedures Referred By Contlevy t Referred To Contact Diagnoses Right BKA infection Referral ID Status Reason Start Date Expiration Date Visits Re quested Visits Authorized [id number] 1 1 Encounter Details Date Type Department Care Team (Late st Contact Info) Description 04/04/2025 4:10 PM EDT - 04/11/2025 1:58 PM EDT Hospital Encounter [address] [place] [address] Mario Crowley, [address] [place] [address] Leonora Shepherd MD [address] [address] Jason Álvarez DO [address] [address] Jadyn Richardson DO [address] [address] Cellulitis of right lower extremity (Primary Dx); Below-knee amputation of right lower extremity, initial encounter; Right BKA infection Discharge Disposition: Home or Self Care Social History Tobacco Use Types Packs/Day Years Used Date Smoking Tobacco: Never Smokeless Tobacco: Never Tobacco Cessation:Counseling Given: Not Answered Alcohol Use Standard Drinks/Week Comments Not Currently 0 (1 standard drink = 0.6 oz pur e alcohol) [facility] Utilities Answer Date Recorded In the past 12 months has th e [employer], gas, oil, or water company threatened to [...] or training? Not on file Preferred Language Lao 04/07/2025 Sex and Gender Information Value Date [...] 2:25 PM EDT Cherri Grimm RN * [place] Suicide Severity Rating Scale (Screener/Recent Self-Report) Question [...] from the original note were not included. [facility] Medicine Services DISCHARGE SUMMARY Patient [...] Appropriate affect, cooperative Neurologic: Oriented x 3, SHNE, speech clear Skin: No rashes on exposed [...] Date/Time Wound Culture - Swab, Leg, Right [[id number]] (Abnormal) (Susceptibility) Collected: 04/07/252106 Lab Status: Final [...] Units Date/Time FL C Arm During Surgery [[id number]] Resulted: 04/07/252137 Updated: 04/07/252137 Narrative: This procedure was auto-finalized with no dictation required. MRI Tibia Fibula Right With & Without Contrast [[id number]] Collected: 04/07/25 0938 Updated: 04/07/25 1001 Narrative: [...] Buenrostro 04/07/2025 9:58 AM EDT Workstation ID: [id number] MRI Tibia Fibula Right With & Without Contrast [[id number]] Collected: 04/04/252256 Updated: 04/04/252302 Narrative: MRI TIBIA [...] represent a small area of phlegmonous change ([id number] image 10) measuring approximately 1.6 cm which [...] MD 04/04/2025 11:00 PM EDT Workstation ID: [id number] Pending Labs Order Current Status Fungus Culture [...] FLOMAX 1 capsule, Nightly Stop These Medications [facility] Digestive [facility] capsule doxycycline 100 MG tablet Commonly known [...] Male) Date of 1980 Social Security Number [id number] [place] [address] Evangelical Unknown Marital Status Unknown Admission Date 04/04/2025 Admission Type Emergency Admitting Provider Jadyn Richardson DO Attending Provider Jadyn Richardson DO Department, Room/Bed [address], S565/1 Discharge Date Discharge Disposition Discharge [...] Group [place] [id number] Payor Plan Address Payor Plan Phone Number Payor Plan Fax Number Effective Dates [employer] [address] [address] 08/10/2023 - None Entered [place] [address] Subscriber Name Subscriber Date Member ID WON DENNIS 1980 [id number] Emergency Contacts Deadener (Rel.) Home Phone Work Phone Mobile Phone Avril Dennis (Spouse) -- -- [phone] LewRobert (Relative) -- -- [phone] [facility] [address] Patient: ROOM: [facility] Won Dennis [address] [facility] [address] : 1980 SSN: [id number] Sex: M PCP: Provider, No Known Emergency Contact Information Name Relation Home Work Mobile Avril Dennis Spouse [phone] Other Contacts Name Relation Home Work Mobile Robert Hackett Relative [phone] INSURANCE PAYOR [employer]AN [employer] # SUBSCRIBER ID Primary: Secondary: MEDICARE [employer]ICAID [place] [id number] Admitting Diagnosis: 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] Order Date: Apr 09, 2025 Case Management Crowd Controller Consult (Order ID: [id number]) Diagnosis: Priority: Routine Expected Date: Expiration Date: Interval: Once Count: Comments: Outpatient orders: 1. Outpatient intravenous antibiotic therapy: Daptomycin 800 mg IV daily to be supplied by [facility] 2. Home health to perform [...] INFECTIOUS DISEASE Progress Note Won Dennis 1980 [id number] Date of Consult: 04/10/2025 Admission Date: 04/04/2025 [...] which prompted him to seek treatment at [facility]. He is known to [...] 05/09/25. HDS, on Heparin gtt. Currently [facility] has been asked to [...] Jr., MD, 20 mg at 04/09/25906 heparin 82088 units/250 mL (100 units/mL) in 0.45 % [...] Units Date/Time FL C Arm During Surgery [[id number]] Resulted: 04/07/252137 Updated: 04/07/252137 Narrative: This procedure was auto-finalized with no dictation required. MRI Tibia Fibula Right With & Without Contrast [[id number]] Collected: 04/07/25 0938 Updated: 04/07/25 1001 Narrative: [...] Chitra 04/07/2025 9:58 AM EDT Workstation ID: [id number] Impression: Recurrent Right BKA stump abscess/cellulitis- this [...] with the pharmacist at [facility] today. I will sign off Outpatient orders: 1. Outpatient intravenous antibiotic therapy: Daptomycin 800 mg IV daily to be supplied by [facility] 2. Home health to perform weekly [...] Time: 04/10/251323 Signed Expand All Collapse All [facility] Medicine Services PROGRESS NOTE Patient [...] Date/Time Wound Culture - Swab, Leg, Right [[id number]] (Abnormal) (Susceptibility) Collected: 04/07/252106 Lab Status: Final [...] Row Name 04/06/25 1143 Sit-Stand Transfer Sit-Stand [place] (Transfers) modified independence -LM Comment, (Sit-Stand Transfer) Pt stood from recliner. Not holding onto walker, pt able to pull his pants up while balancing on his one leg. -LM Row Name 04/06/25 1143 Gait/Stairs (Locomotion) [place] Level (Gait) modified independence -LM Distance in [...] Cosigned By Initials Name Provider Type Susan [facility] PT Physical Therapist Obj/Interventions Row Name 04/06/25 [...] Nurse Physical Therapy Education Title: PT OT CULLET CRUSHER Therapies (Done) Topic: Physical Therapy (Done) Point: [...] Description Service Date Service Provider Modifiers Qty [id number] PT EVAL LOW COMPLEXITY 3 04/06/2025 Susan [...] mg Daily 04/05/2025 -- Route: Oral heparin 10690 units/250 mL (100 units/mL) in 0.45 % [...] -- Admin Instructions: Open Order & Select [facility] Electrolyte Replacement Protocol Algorithm [...] Dean MD April 21 vs April 22 [facility] [address], [address] [facility], [address] Please schedule at [phone] VONDA Garcia 04/11/25 08:32 EDT Cosigned by Sushil Dean Jr., MD at 04/19/2025 10:33 AM EDT Associated attestation - Sushil Dean Jr., MD - 04/19/2025 10:33 AM EDT I have reviewed this documentation and agree. * Rosario Hill APRN - 04/10/2025 1:24 PM EDT Images from the original note were not included. [facility] Medicine Services PROGRESS NOTE Patient [...] Date/Time Wound Culture - Swab, Leg, Right [[id number]] (Abnormal) (Susceptibility) Collected: 04/07/252106 Lab Status: Final [...] from the original note were not included. oWn Dennis LOS: 6 days Patient Care Team: [...] mg Daily 04/05/2025 -- Route: Oral heparin 22396 units/250 mL (100 units/mL) in 0.45 % [...] -- Admin Instructions: Open Order & Select [facility] Electrolyte Replacement Protocol Algorithm [...] -- Admin Instructions: Open Order & Select [facility] Electrolyte Replacement Protocol Algorithm [...] -- Admin Instructions: Open Order & Select [facility] Electrolyte Replacement Protocol Algorithm [...] Dean MD April 21 vs April 22 [facility] [address], [address] [facility], [address] Please schedule at [phone] VONDA Garcia 04/10/25 09:01 EDT Cosigned by Sushil Dean Jr., MD at 04/19/2025 10:33 AM EDT Associated attestation - Sushil Dean Jr., MD - 04/19/2025 10:33 AM EDT I have reviewed this documentation and agree. * Carlton Mead MD - 04/10/2025 7:38 AM EDT Images from the original note were not included. INFECTIOUS DISEASE Progress Note Won Dennis 1980 [id number] Date of Consult: 04/10/2025 Admission Date: 04/04/2025 [...] which prompted him to seek treatment at [facility]. He is known to [...] 05/09/25. HDS, on Heparin gtt. Currently [facility] has been asked to [...] Jr., MD, 20 mg at 04/09/25906 heparin 50678 units/250 mL (100 units/mL) in 0.45 % [...] vancomycin 2750 mg/500 mL 0.9% NS IVPB ([facility]) Ordering Provider: Mario Crowley, [...] Units Date/Time FL C Arm During Surgery [[id number]] Resulted: 04/07/252137 Updated: 04/07/252137 Narrative: This procedure was auto-finalized with no dictation required. MRI Tibia Fibula Right With & Without Contrast [[id number]] Collected: 04/07/25 0938 Updated: 04/07/25 1001 Narrative: [...] Buenrostro 04/07/2025 9:58 AM EDT Workstation ID: [id number] Impression: Recurrent Right BKA stump abscess/cellulitis- this [...] with the pharmacist at [facility] today. I will sign off Outpatient orders: 1. Outpatient intravenous antibiotic therapy: Daptomycin 800 mg IV daily to be supplied by [facility] 2. Home health to perform weekly [...] MD 04/10/2025 07:38 EDT * Yaya Hamiltonn, [facility] - 04/10/2025 7:17 AM EDT [...] from the original note were not included. [facility] Medicine Services PROGRESS NOTE Patient [...] Date/Time Wound Culture - Swab, Leg, Right [[id number]] (Abnormal) Collected: 04/07/252106 Lab Status: Preliminary result [...] Jason DO Preeti 04/09/25 * Larisa Hamilton [facility] - 04/09/2025 11:36 AM EDT [...] mg Daily 04/05/2025 -- Route: Oral heparin 64539 units/250 mL (100 units/mL) in 0.45 % [...] -- Admin Instructions: Open Order & Select [facility] Electrolyte Replacement Protocol Algorithm [...] -- Admin Instructions: Open Order & Select [facility] Electrolyte Replacement Protocol Algorithm [...] -- Admin Instructions: Open Order & Select [facility] Electrolyte Replacement Protocol Algorithm [...] in 2 weeks for incision check, radiographs [facility] [address], [address] [facility], [address] Please schedule at [phone] VONDA Garcia 04/09/25 09:18 EDT Cosigned by Sushil Dean Jr., MD at 04/19/2025 10:33 AM EDT Associated attestation - Sushil Dean Jr., MD - 04/19/2025 10:33 AM EDT I have reviewed this documentation and agree. * Carlton Mead MD - 04/09/2025 8:25 AM EDT Images from the original note were not included. INFECTIOUS DISEASE Progress Note Won Dennis 1980 [id number] Date of Consult: 04/09/2025 Admission Date: 04/04/2025 [...] which prompted him to seek treatment at [facility]. He is known to [...] 05/09/25. HDS, on Heparin gtt. Currently [facility] has been asked to [...] MD, 20 mg at 04/08/25 0800 heparin 15908 units/250 mL (100 units/mL) in 0.45 % [...] Units Date/Time FL C Arm During Surgery [[id number]] Resulted: 04/07/252137 Updated: 04/07/252137 Narrative: This procedure was auto-finalized with no dictation required. MRI Tibia Fibula Right With & Without Contrast [[id number]] Collected: 04/07/2538 Updated: 04/07/25 1001 Narrative: MRI [...] Buenrostro 04/07/2025 9:58 AM EDT Workstation ID: [id number] Impression: Recurrent Right BKA stump abscess/cellulitis- this [...] mg IV daily to be supplied by [facility] 2. Home health to perform [...] from the original note were not included. [facility] Medicine Services PROGRESS NOTE Patient [...] Buenrostro 04/07/2025 9:58 AM EDT Workstation ID: [id number] I have personally reviewed the therapy plans: [...] Jason Álvarez DO 04/08/25 * Larisa Hamilton [facility] - 04/08/2025 11:48 AM EDT [...] -- Admin Instructions: Open Order & Select [facility] Electrolyte Replacement Protocol Algorithm [...] mg Daily 04/05/2025 -- Route: Oral heparin 43226 units/250 mL (100 units/mL) in 0.45 % [...] -- Admin Instructions: Open Order & Select [facility] Electrolyte Replacement Protocol Algorithm [...] -- Admin Instructions: Open Order & Select [facility] Electrolyte Replacement Protocol Algorithm [...] -- Admin Instructions: Open Order & Select [facility] Electrolyte Replacement Protocol Algorithm [...] INFECTIOUS DISEASE Progress Note Won Dennis 1980 [id number] Date of Consult: 04/08/2025 Admission Date: 04/04/2025 [...] which prompted him to seek treatment at [facility]. He is known to [...] 05/09/25. HDS, on Heparin gtt. Currently [facility] has been asked to [...] Jr., MD, 20 mg at 04/07/25950 heparin 31470 units/250 mL (100 units/mL) in 0.45 % [...] Units Date/Time FL C Arm During Surgery [[id number]] Resulted: 04/07/252137 Updated: 04/07/252137 Narrative: This procedure was auto-finalized with no dictation required. MRI Tibia Fibula Right With & Without Contrast [[id number]] Collected: 04/07/2538 Updated: 04/07/25 1001 Narrative: MRI [...] Buenrostro 04/07/2025 9:58 AM EDT Workstation ID: [id number] Impression: 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 (Treated by ID in [place] Dr. Harris). Dr. Torres treated him with [...] from the original note were not included. [facility] Medicine Services PROGRESS NOTE Patient [...] Buenrostro 04/07/2025 9:58 AM EDT Workstation ID: [id number] I have personally reviewed the therapy plans: [...] Jason Álvarez DO 04/07/25 * Larisa Hamilton [facility] - 04/07/2025 11:56 AM EDT [...] INFECTIOUS DISEASE Progress Note Won Dennis 1980 [id number] Date of Consult: 04/07/2025 Admission Date: 04/04/2025 [...] which prompted him to seek treatment at [facility]. He is known to [...] 05/09/25. HDS, on Heparin gtt. Currently [facility] has been asked to [...] Application, 1 Application, Topical, Q12H, Ayah Valentin, SHEET FOLDER, 1 Application at 04/06/252101 DAPTOmycin (CUBICIN) 800 [...] Shepherd MD, 20 mg at 04/06/25899 heparin 88410 units/250 mL (100 units/mL) in 0.45 % NaCl infusion, 18 Units/kg/hr, Intravenous, Titrated, Cherri Beatty, [facility], Last Rate: 24.1 mL/hr at [...] With & Without Contrast - In process [[id number]] Resulted: 04/07/25828 Updated: 04/07/25828 This result has not been signed. Information might be incomplete. MRI Tibia Fibula Right With & Without Contrast [[id number]] Collected: 04/04/252256 Updated: 04/04/252302 Narrative: MRI TIBIA [...] represent a small area of phlegmonous change ([id number] image 10) measuring approximately 1.6 cm which [...] MD 04/04/2025 11:00 PM EDT Workstation ID: [id number] Impression: 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 (Treated by ID in [place] Dr. Harris). Dr. Torres treated him with [...] mg Daily 04/05/2025 -- Route: Oral heparin 54933 units/250 mL (100 units/mL) in 0.45 % [...] -- Admin Instructions: Open Order & Select [facility] Electrolyte Replacement Protocol Algorithm [...] -- Admin Instructions: Open Order & Select [facility] Electrolyte Replacement Protocol Algorithm [...] MD 04/07/25 06:07 EDT * Cherri Beatty [facility] - 04/06/2025 1:47 PM EDT [...] from the original note were not included. [facility] Medicine Services PROGRESS NOTE Patient [...] MD 04/04/2025 11:00 PM EDT Workstation ID: [id number] I have personally reviewed the therapy plans: [...] mg Daily 04/05/2025 -- Route: Oral heparin 32388 units/250 mL (100 units/mL) in 0.45 % [...] -- Admin Instructions: Open Order & Select [facility] Electrolyte Replacement Protocol Algorithm [...] INFECTIOUS DISEASE follow up. Won Dennis 1980 [id number] Date of Consult: 04/06/2025 Admission Date: 04/04/2025 [...] which prompted him to seek treatment at [facility]. He is known to [...] 05/09/25. HDS, on Heparin gtt. Currently [facility] has been asked to [...] Application, 1 Application, Topical, Q12H, Ayah Valentin, SHEET FOLDER, 1 Application at 04/06/25 0859 DAPTOmycin (CUBICIN) [...] MD, 20 mg at 04/06/25 0900 heparin 27265 units/250 mL (100 units/mL) in 0.45 % NaCl infusion, 18 Units/kg/hr, Intravenous, Titrated, Cherri Beatty [facility], Last Rate: 24.1 mL/hr at [...] Tibia Fibula Right With & Without Contrast [[id number]] Collected: 04/04/252256 Updated: 04/04/252302 Narrative: MRI TIBIA [...] MD 04/04/2025 11:00 PM EDT Workstation ID: [id number] Impression: 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 (Treated by ID in [place] Dr. Harris). Dr. Torres treated him with [...] MD 04/06/2025 16:00 EDT * Cherri Beatty, [facility] - 04/05/2025 3:01 PM EDT [...] from the original note were not included. [facility] Medicine Services PROGRESS NOTE Patient [...] MD 04/04/2025 11:00 PM EDT Workstation ID: [id number] I have personally reviewed the therapy plans: [...] from the original note were not included. [facility] Medicine Services HISTORY AND PHYSICAL [...] MD 04/04/2025 11:00 PM EDT Workstation ID: [id number] Assessment & Plan Assessment & Plan Won [...] 4FR PICC placed by Rhoda Bonner RN [facility], tip verified by 3CG see LDA. * Sushil Dean Jr., MD - 04/05/2025 8:07 AM EDTAssociated Order(s): IP CONSULT TO ORTHOPEDIC SURGERY [facility], [facility] [address] [address] Orthopedic Consult Patient: Won Dennis Date of Admission: 04/04/2025 4:10 PM Date of : 1980 Attending Physician: Jason Álvarez DO Consulting Physician: Sushil Dean Jr, MD Chief Complaint: 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 male admitted to [facility] with 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]. He [...] was evaluated in the emergency department in [place], was discharged with instructions for follow-up. He [...] tablet by mouth Daily. 04/03/2025 Morning Lactobacillus-Inulin ([facility] [employer]) capsule Take 200 mg by mouth Daily. [...] MD 04/04/2025 11:00 PM EDT Workstation ID: [id number] Assessment: Right BKA infection 44-year-old male with [...] DISEASE CONSULT/INITIAL HOSPITAL VISIT Won Dennis 1980 [id number] Date of Consult: 04/05/2025 Admission Date: 04/04/2025 [...] which prompted him to seek treatment at [facility]. He is known to [...] 05/09/25. HDS, on Heparin gtt. Currently [facility] has been asked to [...] Leonora Shepherd MD, 40 mg at 04/04/25 0259 sennosides-docusate (PERICOLACE) 8.6-50 MG per tablet 2 [...] MD, 20 mg at 04/05/25 0916 heparin 86161 units/250 mL (100 units/mL) in 0.45 % [...] Tibia Fibula Right With & Without Contrast [[id number]] Collected: 04/04/252256 Updated: 04/04/252302 Narrative: MRI TIBIA [...] represent a small area of phlegmonous change ([id number] image 10) measuring approximately 1.6 cm which [...] MD 04/04/2025 11:00 PM EDT Workstation ID: [id number] Impression: 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 (Treated by ID in [place] Dr. Harris). Dr. Torres treated him with [...] Jr., MD - 04/08/2025 3:51 PM EDT [facility] OPERATIVE REPORT PATIENT NAME: Won Dennis DATE OF : 1980 PREOP DIAGNOSIS: Right Right below-knee amputation infection POSTOP DIAGNOSIS: Same. PROCEDURE: Right Right 01058: Secondary closure below-knee amputation SURGEON: Sushil Dean MD OPERATIVE TEAM: Armature Varnisher: Susi Grullon RN Scrub Person: Mary Paredes Scrub Person Extra: Hortencia Toribio Other: Katt Gotti RN; Charis Neville RN ANESTHETIST: Anesthesiologist: Ulises Hoffman MD FARM MARKETER: Stan Casillas CRNA Student Nurse Clothes Drier Assembler: Karol Albert SRNA ANESTHESIA: Choice ESTIMATED BLOOD [...] CULTURE (Canceled) Sushil Dean Jr., MD 04/08/25 0386 Description: RIGHT LEG DEEP WOUND FOR CULTURE [...] Jr., MD - 04/07/2025 9:03 PM EDT [facility] [address] [address] OPERATIVE REPORT PATIENT NAME: Won Dennis DATE OF : 1980 PREOP DIAGNOSIS: Right Right below knee amputation stump infection POSTOP DIAGNOSIS: Same. PROCEDURE: Right Right 83666: Incision and drainage of surgical site infection 48731: Debridement of skin, subcutaneous tissue, muscle 44844: Wound vacuum-assisted closure SURGEON: Sushil Dean MD OPERATIVE TEAM: Armature Varnisher: Anum Sanchez RN Scrub Person: Hortencia Toribio; Gerald Ivey TURBOGENERATOR OPERATOR: Anesthesiologist: Luci Alonso DO ANESTHESIA: General ESTIMATED [...] ago swellling of the area. seen at [facility] yesterday for CT and [...] this chart in the absence of a slack line yarder. No orders to display RADIOLOGY: [x] Radiologist's [...] assessment. Plan to discuss further with Dr. Dena with the results. Patient has a CBC [...] 04/11/2025 1:30 PM EDT Continued Stay Note [facility] Patient Name: Won Dennis Today's Date: 04/11/2025 Admit Date: 04/04/2025 Plan: Home with outpatient infusion. Discharge Plan Row Name 04/11/25 1155 Plan Plan Home with outpatient infusion. Final Discharge Disposition Code 01 - home or self-care Final Note Patient discharging today. He is discharging home with outpatient infusion at [facility]. He has an appointment with [facility] at 8:00 am tomorrow. They will do PICC line dressing changes. DEBRA has spoke with Dena at [facility] today multiple times to get setup [...] to get IV ABX at home with [facility]; however, Medicaid lapsed on 04/08. DEBRA was unaware until this morning that Medicaid has lapsed. Patient explained that he has Medicare A and B. CM spoke with KELLEE and given themhis Medicare number [id number], she sent it to Admission. DEBRA spoke with Kerri, with [facility], and explained that he had Medicare A and B. However, it will not cover home infusion. It will be $64.00 a day out of packet. Patients can go to the Infusion center at [facility], and it will cover the cost as an outpatient. He will need to go there every day for infusion. They will be able to do the patients' PICC line dressing changes and lab work. CM called D[facility] they can accept patient and start him. He is known for their facility. The Facility will need to run it through his insurance first. CM faxed the orders over to [facility] at [phone]. CM will follow up with them tomorrow at [facility] to make sure they received the orders. [...] with patient at bedside today. [facility]. Patient getting PICC line [...] note were not included. Discharge Planning Assessment [facility] Patient Name: Won Dennis Today's Date: 04/07/2025 [...] family Patient/Family Anticipated Services at Transition case [employer] Anticipated family or friend will provide Discharge [...] for home. CM will order wheelchair through [employer]. He is not current with home health services. PCP is Dr. Jordan. Insurance is [facility] Medicaid [place]. Patient discharge plan is home with priavte transport. CM will follow for any discharge needs. Final Discharge Disposition Code 01 - home or self-care Continued Care and Services - Admitted Since 04/04/2025 No active coordination exists. Demographic Summary Row Name 04/07/25 1143 General Information Arrived From hospital Preferred Language Lao Functional Status Row Name 04/07/25 1143 Functional [...] 3:4 0 PM EDT Right BKA infection SC SEC ABDOMINAL WALL SUTURE EVISCERATION/DEHSN 04/08/2025 3:20 [...] CBC Auto Differential (04/11/2025 3:40 AM EDT) [facility] WBC 7.87 3.40 - 10.80 10*3/mm3 [...] 140 - 450 10*3/mm3 04/11/2025 4:02 AM [facility] Neutrophil % 59.5 42.7 - 76.0 % 04/11/2025 4:02 AM [facility] Lymphocyte % 26.3 19.6 - 45.3 % 04/11/2025 4:02 AM [facility] Monocyte % 9.3 5.0 - 12.0 % 04/11/2025 4:02 AM [facility] Eosinophil % 4.1 0.3 - 6.2 % 04/11/2025 4:02 AM [facility] Basophil % 0.4 0.0 - 1.5 % 04/11/2025 4:02 AM [facility] Immature Grans % 0.4 0.0 - 0.5 % 04/11/2025 4:02 AM [facility] Neutrophils, Absolute 4.69 1.70 - 7.00 10*3/mm3 04/11/2025 4:02 AM [facility] Lymphocytes, Absolute 2.07 0.70 - 3.10 10*3/mm3 04/11/2025 4:02 AM [facility] Monocytes, Absolute 0.73 0.10 - 0.90 10*3/mm3 04/11/2025 4:02 AM [facility] Eosinophils, Absolute 0.32 0.00 - 0.40 10*3/mm3 04/11/2025 4:02 AM [facility] Basophils, Absolute 0.03 0.00 - 0.20 10*3/mm3 04/11/2025 4:02 AM [facility] Immature Grans, Absolute 0.03 0.00 - 0.05 10*3/mm3 04/11/2025 4:02 AM [facility] nRBC 0.0 0.0 - 0.2 /100 WBC 04/11/2025 4:02 AM [facility] Blood Venipuncture / Unknown 04/11/2025 3:40 AM EDT 04/11/2025 3:59 AM EDT us Sushil Dean Jr., MD LAB BLOOD ORDERABLES Fi nal Result [facility]
[address] [place] [address], * (ABNORMAL) Comprehensive Metabolic Panel (04/11/2025 3:40 [...] EDT 04/11/2025 3:56 AM EDT [facility] - 04/11/2025 4:19 AM EDT GFR [...] BLOOD ORDERABLES Final Result [facility]
[address] [place] [address], * (ABNORMAL) CBC Auto Differential (04/10/2025 3:46 AM EDT) [facility] WBC 9.60 3.40 - 10.80 10*3/mm3 04/10/2025 3:56 AM EDT [facility] RBC 4.67 4.14 - 5.80 10*6/mm3 [facility] Hemoglobin 12.9(L) 13.0 - 17.7 g/dL 04/10/2025 3:56 AM EDT [facility] Hematocrit 40.1 37.5 - 51.0 % 04/10/2025 3:[facility] MCV 85.9 79.0 - 97.0 fL 04/10/2025 3:56 [facility] MCH 27.6 26.6 - 33.0 pg 04/10/2025 3:56 AM [facility] MCHC 32.2 31.5 - 35.7 g/dL 04/10/2025 3:56 [facility] RDW 12.9 12.3 - 15.4 % 04/10/2025 3:56 AM [facility] RDW-SD 40.5 37.0 - 54.0 fl 04/10/2025 3:56 AM [facility] MPV 9.5 6.0 - 12.0 fL 04/10/2025 3:56 AM [facility] Platelets 227 140 - 450 10*3/mm3 04/10/2025 3:56 AM EDT [facility] Neutrophil % 59.1 42.7 - 76.0 % 04/10/2025 3:56 [facility] Lymphocyte % 29.0 19.6 - 45.3 % 04/10/2025 3:56 [facility] Monocyte % 8.1 5.0 - 12.0 % 04/10/2025 3:56 [facility] Eosinophil % 3.2 0.3 [...] ORDERABLES Final Resul t [facility]
[address] [place] [address], * (ABNORMAL) Basic Metabolic Panel (04/10/2025 3:46 AM EDT) [facility] Glucose 125(H) 65 - 99 mg/dL 04/10/2025 4:20 AM EDT [facility] BUN 15.9 6.0 - 20.0 mg/dL 04/10/2025 4:20 AM T [facility] Creatinine 0.77 0.76 - 1.27 mg/dL 04/10/2025 4:20 AM T [facility] Sodium 137 136 - 145 mmol/L 04/10/2025 4:20 AM [facility] Potassium 3.9 3.5 - 5.2 mmol/L 04/10/2025 4:20 AM EDT [facility] Chloride 102 98 - 107 mmol/L 04/10/2025 4:20 AM EDT [facility] CO2 26.9 22.0 - 29.0 mmol/L 04/10/2025 4:20 AM [facility] Calcium 7.9(L) 8.6 - 10.5 mg/dL 04/10/2025 4:20 AM [facility] BUN/Creatinine Ratio 20.6 7.0 - 25.0 04/10/2025 4:20 AM [facility] Anion Gap 8.1 5.0 - 15.0 mmol/L 04/10/2025 4:20 AM [facility] eGFR 113.2 >60.0 mL/min/1.7 3 04/10/2025 4:20 AM [facility] Blood Venipuncture / Unknown 04/10/2025 3:46 AM EDT 04/10/2025 3:52 AM EDT [facility] - 04/10/2025 4:20 AM EDT GFR [...] ORDERABLES Final Resul t [facility]
[address] [place] [address], * Heparin Anti-Xa (04/10/2025 3:46 AM EDT) Heparin Anti-Xa (UFH) 0.35 0.30 - 0.70 IU/ml 04/10/2025 4:23 AM EDT [facility] Blood Venipuncture / Unknown 04/10/2025 3:46 AM EDT 04/10/2025 3:53 AM EDT Larisa [facility] LAB BLOOD ORDERABLES Final R esult Performing Organization Address City/[facility]/ZIP Co de Phone Number [facility]
[address] [place] [address], * Heparin Anti-Xa (04/09/2025 10:05 AM EDT) Heparin Anti-Xa (UFH) 0.36 0.30 - 0.70 IU/ml 04/09/2025 11:12 AM EDT [facility] Blood Venipuncture / Unknown 04/09/2025 10:05 AM EDT 04/09/2025 10:[address] [facility] LAB BLOOD ORDERABLES Final R esult [facility]
[address] [place] [address], * (ABNORMAL) CBC Auto Differential (04/09/2025 4:18 AM EDT) WBC 11.00(H) 3.40 - 10.80 10*3/mm3 04/09/2025 4:50 AM [facility] RBC 4.70 4.14 - 5.80 10*6/mm3 04/09/2025 4:50 AM EDT [facility] Hemoglobin 13.0 13.0 - 17.7 g/dL 04/09/2025 4:50 AM EDT [facility] Hematocrit 40.4 37.5 - 51.0 % 04/09/2025 4:50 AM EDT [facility] MCV 86.0 79.0 - 97.0 fL 04/09/2025 4:50 AM EDT [facility] MCH 27.7 26.6 - 33.0 pg 04/09/2025 4:[facility] MCHC 32.2 31.5 - 35.7 g/dL 04/09/2025 4:50 AM [facility] RDW 12.8 12.3 - 15.4 % 04/09/2025 4:50 AM [facility] RDW-SD 39.9 37.0 - 54.0 fl 04/09/2025 4:50 AM [facility] MPV 10.0 6.0 - 12.0 fL 04/09/2025 4:50 AM [facility] Platelets 211 140 - 450 10*3/mm3 04/09/2025 4:50 AM [facility] Neutrophil % 74.8 42.7 - 76.0 % 04/09/2025 4:50 AM EDT [facility] Lymphocyte % 15.4(L) 19.6 - 45.3 % 04/09/2025 4:50 AM EDT [facility] Monocyte % 8.5 5.0 - 12.0 % 04/09/2025 4:50 AM EDT [facility] Eosinophil % 0.6 0.3 - 6.2 % 04/09/2025 4:50 [facility] Basophil % 0.4 0.0 [...] ORDERABLES Fi nal Result [facility]
[address] [place] [address], * Heparin Anti-Xa (04/09/2025 4:18 AM EDT) Heparin Anti-Xa (UFH) 0.41 0.30 - 0.70 IU/ml 04/09/2025 4:53 AM EDT [facility] Blood Venipuncture / Unknown 04/09/2025 4:18 AM EDT 04/09/2025 4:31 AM EDT Una Wheeleroy PharmD LAB BLOOD ORDERABLES Final R esult [facility]
[address] [place] [address], * (ABNORMAL) Basic Metabolic Panel (04/09/2025 4:18 AM EDT) Pathologist [facility] Glucose 147(H) 65 - 99 mg/dL [...] nal Result Performing Organization Address [facility] Co de Phone Number [facility]
[address] [place] [address], * Wound Culture - Swab, Leg, Right [...] GENERAL ORDERABLES Final Result Performing Organization Address City/[facility]/ZIP Co de Phone Number [facility]
[address] [place] [id number], [facility]
[address] [place] [address], * Anaerobic Culture - Swab, Leg, Right (04/08/2025 3:40 PM EDT) Pathologist [facility] Anaerobic Culture No anaerobes isolated at 5 days ALIZA 04/13/2025 7:24 AM EDT [facility] Swab Structure of right lower limb / Unknown 04/08/2025 3:40 PM EDT 04/08/2025 8:05 PM EDT Sushil Dean Jr., MD MICROBIOLOGY - GENERAL ORDERABLES Final Result Performing Organization Address City/[facility] Co de Phone Number [facility]
[address] [place] [address], [place] [phone] * Scan Slide (04/08/2025 8:41 AM EDT) Pathologist [facility] RBC Morphology Normal Normal 04/08/2025 11:02 [...] ORDERABLES Final R esult Performing Organization Address City/[facility]/ZIP Co de Phone Number [facility]
[address] [place] [address], [place] [phone] * (ABNORMAL) CBC Auto Differential (04/08/2025 8:41 AM EDT) Pathologist [facility] WBC 10.07 3.40 - 10.80 10*3/mm3 04/08/2025 11:02 AM EDT [facility] RBC 5.01 4.14 - 5.80 10*6/mm3 04/08/2025 11:02 AM EDT [facility] Hemoglobin 14.0 13.0 - 17.7 g/dL 04/08/2025 11:02 AM [facility] Hematocrit 42.7 37.5 - 51.0 % 04/08/2025 11:02 AM [facility] MCV 85.2 79.0 - 97.0 fL 04/08/2025 11:02 AM [facility] MCH 27.9 26.6 - 33.0 pg 04/08/2025 11:02 AM [facility] MCHC 32.8 31.5 - 35.7 g/dL 04/08/2025 11:02 AM [facility] RDW 12.6 12.3 - 15.4 % 04/08/2025 11:02 AM [facility] RDW-SD 38.9 37.0 - 54.0 fl 04/08/2025 11:02 AM [facility] MPV 11.0 6.0 - 12.0 fL 04/08/2025 11:02 AM [facility] Platelets 118(L) 140 - 450 10*3/mm3 04/08/2025 11:02 AM [facility] Neutrophil % 85.1(H) 42.7 - 76.0 % 04/08/2025 11:02 AM [facility] Lymphocyte % 9.3(L) 19.6 - 45.3 % 04/08/2025 11:02 AM [facility] Monocyte % 4.6(L) 5.0 - 12.0 % 04/08/2025 11:02 AM [facility] Eosinophil % 0.3 0.3 - 6.2 % 04/08/2025 11:02 AM [facility] Basophil % 0.2 0.0 - 1.5 % 04/08/2025 11:02 AM [facility] Immature Grans % 0.5 0.0 - 0.5 % 04/08/2025 11:02 AM [facility] Neutrophils, Absolute 8.57(H) 1.70 - 7.00 [...] ORDERABLES Final R esult [facility]
[address] [place] [address], * (ABNORMAL) Basic Metabolic Panel (04/08/2025 8:41 [...] EDT 04/08/2025 9:09 AM EDT [facility] - 04/08/2025 9:51 AM EDT GFR [...] BLOOD ORDERABLES nal Result [facility]
[address] [place] [address], * Heparin Anti-Xa (04/08/2025 8:41 AM EDT) Heparin Anti-Xa (UFH) 0.33 0.30 - 0.70 IU/ml 04/08/2025 9:40 AM EDT [facility] Blood Venipuncture / Unknown 04/08/2025 8:41 AM EDT 04/08/2025 9:10 AM EDT Sushil Dean Jr., MD LAB BLOOD ORDERABLES Fi nal Result [facility]
[address] [place] [address], * FL C Arm During Surgery (04/07/2025 [...] Final Result [facility]
[address] [place] [address], [facility]
[address] [place] [address], * Anaerobic Culture - Swab, Leg, Right (04/07/2025 9:14 PM EDT) Anaerobic Culture No anaerobes isolated at 5 days ALIZA 04/13/2025 7:21 AM EDT [facility] Swab Structure of right lower limb / Unknown Collection / Unknown 04/07/2025 9:14 PM EDT 04/08/2025 4:36 AM EDT Sushil Dean Jr., MD MICROBIOLOGY - GENERAL ORDERABLES Final Result Performing Organization Address City/[facility]/ZIP Co de Phone Number [facility]
[address] [place] [address], * Anaerobic Culture - Tissue, Leg (04/07/2025 9:13 PM EDT) Anaerobic Culture No anaerobes isolated at 5 days ALIZA 04/13/2025 7:21 AM EDT [facility] Tissue Lower limb structure / Unknown Collection / Unknown 04/07/2025 9:13 PM EDT 04/08/2025 4:54 AM EDT Jason Álvarez DO MICROBIOLOGY - GENERAL ORDERABLE S Final Result [facility]
[address] [place] [address], * Tissue / Bone Culture - Tissue, [...] GENERAL ORDERABLES Final Result Performing Organization Address City/[facility]/ZIP Co de Phone Number [facility]
[address] [place] [address], [place] [phone] [facility]
[address] [place] [address], [place] [phone] * (ABNORMAL) Wound Culture - Swab, Leg, [...] Final Result [facility]
[address] [place] [address], [facility]
[address] [place] [address], * Anaerobic Culture - Swab, Leg, Right (04/07/2025 9:07 PM EDT) Pathologist [facility] Anaerobic Culture No anaerobes isolated at 5 days ALIZA 04/13/2025 7:21 AM EDT [facility] Swab Structure of right lower limb / Unknown Collection / Unknown 04/07/2025 9:07 PM EDT 04/08/2025 4:36 AM EDT Sushil Dean Jr., MD MICROBIOLOGY - GENERAL ORDERABLES Final Result Performing Organization Address [facility] Co de Phone Number [facility]
[address] [place] [address], * Heparin Anti-Xa (04/07/2025 9:10 AM EDT) [facility] Heparin Anti-Xa (UFH) 0.30 0.30 - 0.70 IU/ml 04/07/2025 10:12 AM EDT [facility] Blood Venipuncture / Unknown 04/07/2025 9:10 AM EDT 04/07/2025 9:38 AM EDT Una LundbergD LAB BLOOD ORDERABLES Final R esult Performing Organization Address City/[facility]/ZIP Co de Phone Number [facility]
[address] [place] [address], * (ABNORMAL) CBC Auto Differential (04/07/2025 9:10 AM EDT) Pathologist [facility] WBC 8.63 3.40 - 10.80 10*3/mm3 04/07/2025 9:50 AM EDT [facility] RBC 5.23 4.14 - 5.80 10*6/mm3 04/07/2025 9:[facility] Hemoglobin 14.7 13.0 - 17.7 g/dL 04/07/2025 9:50 [facility] Hematocrit 44.8 37.5 - 51.0 % 04/07/2025 9:50 [facility] MCV 85.7 79.0 - 97.0 fL 04/07/2025 9:50 AM EDT [facility] MCH 28.1 26.6 - 33.0 pg 04/07/2025 9:50 [facility] MCHC 32.8 31.5 - 35.7 g/dL 04/07/2025 9:50 AM [facility] RDW 12.8 12.3 - 15.4 % 04/07/2025 9:50 AM [facility] RDW-SD 39.9 37.0 - 54.0 fl 04/07/2025 9:50 AM [facility] MPV 10.8 6.0 - 12.0 fL 04/07/2025 9:50 AM [facility] Platelets 149 140 - 450 10*3/mm3 04/07/2025 9:50 [facility] Neutrophil % 66.7 42.7 - 76.0 % 04/07/2025 9:50 AM [facility] Lymphocyte % 20.5 19.6 - 45.3 % 04/07/2025 9:50 AM EDT [facility] Monocyte % 9.8 5.0 - 12.0 % 04/07/2025 9:50 [facility] Eosinophil % 2.1 0.3 - 6.2 % 04/07/2025 9:50 [facility] Basophil % 0.3 0.0 - 1.5 % 04/07/2025 9:50 AM [facility] Immature Grans % 0.6(H) [...] ORDERABLES Final Resul t [facility]
[address] [place] [address], * (ABNORMAL) Basic Metabolic Panel (04/07/2025 9:10 [...] ORDERABLES Final Resul t [facility]
[address] [place] [address], * MRI Tibia Fibula Right With & [...] [place] 04/07/2025 9:58 AM EDT Workstation ID: [id number] Narrative 04/07/2025 9:58 AM EDT MRI TIBIA [...] [place] 04/07/2025 9:58 AM EDT Workstation ID: [id number] us uSshil Dean Jr., MD [facility] MRI ORDERABLES Mary Beth l Result * Heparin Anti-Xa (04/07/2025 1:42 AM EDT) Heparin Anti-Xa (UFH) 0.38 0.30 - 0.70 IU/ml 04/07/2025 2:14 AM EDT [facility] Blood Venipuncture / Unknown 04/07/2025 1:42 AM EDT 04/07/2025 1:54 AM EDT Chelsie Navarretesapna [facility] LAB BLOOD ORDERABLES Final R esult Performing Organization Address City/[facility]/ZIP Co de Phone Number [facility]
[address] [place] [address], * Heparin Anti-Xa (04/06/2025 7:16 PM EDT) Pathologist [facility] Heparin Anti-Xa (UFH) 0.33 0.30 - 0.70 IU/ml 04/06/2025 7:50 PM EDT [facility] Blood Venipuncture / Unknown 04/06/2025 7:16 PM EDT 04/06/2025 7:35 PM EDT Cherri Beatty [facility] LAB BLOOD ORDERABLES Final Res ult Performing Organization Address City/[facility] Co de Phone Number [facility]
[address] [place] [address], * Potassium (04/06/2025 7:16 PM EDT) Pathologist [facility] Potassium 4.0 3.5 - 5.2 mmol/L 04/06/2025 7:53 PM EDT [facility] Blood Venipuncture / Unknown 04/06/2025 7:16 PM EDT 04/06/2025 7:35 PM EDT Jason Álvarez DO LAB BLOOD ORDERABLES Final Resul t Performing Organization Address City/[facility]/ZIP Co de Phone Number [facility]
[address] [place] [address], * (ABNORMAL) Heparin Anti-Xa (04/06/2025 12:36 PM EDT) Heparin Anti-Xa (UFH) 0.24(L) 0.30 - 0.70 IU/ml 04/06/2025 1:23 PM EDT [facility] Blood Venipuncture / Unknown 04/06/2025 12:36 PM EDT 04/06/2025 1:07 PM EDT Una LundbergD LAB BLOOD ORDERABLES Final R esult [facility]
[address] [place] [address], * (ABNORMAL) Heparin Anti-Xa (04/06/2025 3:42 AM EDT) [facility] Heparin Anti-Xa (UFH) 0.25(L) 0.30 - 0.70 IU/ml 04/06/2025 5:30 AM EDT [facility] Blood Venipuncture / Unknown 04/06/2025 3:42 AM EDT 04/06/2025 4:59 AM EDT Chelsie Turpin [facility] LAB BLOOD ORDERABLES Final R esult [facility]
[address] [place] [address], * (ABNORMAL) Basic Metabolic Panel (04/06/2025 3:42 AM EDT) [facility] Glucose 94 65 - 99 mg/dL [...] ORDERABLES Final Resul t [facility]
[address] [place] [address], * (ABNORMAL) CBC Auto Differential (04/06/2025 3:41 [...] ORDERABLES Final Resul t [facility]
[address] [place] [address], * Heparin Anti-Xa (04/05/2025 8:43 PM EDT) Heparin Anti-Xa (UFH) 0.38 0.30 - 0.70 IU/ml 04/05/2025 9:09 PM EDT [facility] Blood Venipuncture / Unknown 04/05/2025 8:43 PM EDT 04/05/2025 8:55 PM EDT Cherri Beatty [facility] LAB BLOOD ORDERABLES Final Res ult Performing Organization Address [facility] Co de Phone Number [facility]
[address] [place] [address], * CK (04/05/2025 12:15 PM EDT) Creatine Kinase 140 20 - 200 U/L 04/05/2025 1:31 PM EDT [facility] Blood Venipuncture / Unknown 04/05/2025 12:15 PM EDT 04/05/2025 1:03 PM EDT Carlton Mead MD LAB BLOOD ORDERABLES Final R esult Performing Organization Address [facility] Co de Phone Number [facility]
[address] [place] [address], [place] [phone] * (ABNORMAL) Heparin Anti-Xa (04/05/2025 12:15 PM EDT) Heparin Anti-Xa (UFH) 0.17(L) 0.30 - 0.70 IU/ml 04/05/2025 1:21 PM EDT [facility] Blood Venipuncture / Unknown 04/05/2025 12:15 PM EDT 04/05/2025 1:04 PM EDT Una LundbergD LAB BLOOD ORDERABLES Final R esult Performing Organization Address City/[facility]/ZIP Co de Phone Number [facility]
[address] [place] [address], * (ABNORMAL) aPTT (04/05/2025 3:54 AM EDT) [facility] PTT 35.3(L) 60.0 - 90.0 seconds 04/05/2025 4:31 AM EDT [facility] Blood Venipuncture / Unknown 04/05/2025 3:54 AM EDT 04/05/2025 4:15 AM EDT Narrative [facility] - 04/05/2025 4:31 AM EDT PTT = The equivalent PTT values for the therapeutic range of heparin levels at 0.3 to 0.5 U/ml are 60 to 70 seconds. [employer] LAB BLOOD ORDERABLES Final R esult Performing Organization Address [facility] Co de Phone Number [facility]
[address] [place] [address], * Heparin Anti-Xa (04/05/2025 3:54 AM EDT) [facility] Heparin Anti-Xa (UFH) 0.30 0.30 - 0.70 IU/ml 04/05/2025 4:32 AM EDT [facility] Blood Venipuncture / Unknown 04/05/2025 3:54 AM EDT 04/05/2025 4:15 AM EDT [employer] LAB BLOOD ORDERABLES Final R esult Performing Organization Address [place]/[facility] Co de Phone Number [facility]
[address] [place] [address], * (ABNORMAL) CBC Auto Differential (04/05/2025 3:54 AM EDT) [facility] WBC 11.18(H) 3.40 - 10.80 10*3/mm3 [...] 26.6 - 33.0 pg [facility] MCHC 32.8 31.5 - 35.7 g/dL 04/05/2025 4:20 AM [facility] RDW 12.9 12.3 - 15.4 % 04/05/2025 4:20 AM [facility] RDW-SD 39.7 37.0 - 54.0 fl 04/05/2025 4:20 AM [facility] MPV 10.2 6.0 - 12.0 fL 04/05/2025 4:20 AM [facility] Platelets 160 140 - 450 10*3/mm3 04/05/2025 4:20 AM [facility] Neutrophil % 73.5 42.7 - 76.0 % 04/05/2025 4:[facility] Lymphocyte % 14.0(L) 19.6 - 45.3 % 04/05/2025 4:20 AM EDT [facility] Monocyte % 11.0 5.0 - 12.0 % 04/05/2025 4:[facility] Eosinophil % 0.8 0.3 - 6.2 % 04/05/2025 4:[facility] Basophil % 0.3 0.0 [...] ORDERABLES Final R esult [facility]
[address] [place] [address], * (ABNORMAL) Basic Metabolic Panel (04/05/2025 3:54 AM EDT) [facility] Signature Glucose 152(H) 65 - 99 [...] 8.6 - 10.5 mg/dL 04/05/2025 4:40 AM [facility] BUN/Creatinine Ratio 18.8 7.0 - 25.0 04/05/2025 4:40 AM T [facility] Anion Gap 9.0 5.0 - 15.0 mmol/L 04/05/2025 4:40 AM [facility] eGFR 105.2 >60.0 mL/min/1.7 3 04/05/2025 4:40 AM [facility] Blood Venipuncture / Unknown 04/05/2025 3:54 AM EDT 04/05/2025 4:15 AM EDT [facility] - 04/05/2025 4:40 AM EDT GFR [...] Re sult Performing Organization Address [facility] [facility] Co de Phone Number [facility]
[address] [place] [address], * (ABNORMAL) aPTT (04/05/2025 12:18 AM EDT) [...] R esult Performing Organization Address [facility] Co de Phone Number [facility]
[address] [place] [address], [place] [phone] * (ABNORMAL) Protime-INR (04/05/2025 12:18 AM EDT) Protime 15.9(H) 12.2 - 15.3 Seconds 04/05/2025 12:53 AM EDT [facility] INR 1.19(H) 0.89 - 1.12 04/05/2025 12:53 AM EDT [facility] Blood Venipuncture / Unknown 04/05/2025 12:18 AM EDT 04/05/2025 12:37 AM EDT Una Perla PharmD LAB BLOOD ORDERABLES Final R esult Performing Organization Address City/[facility] Co de Phone Number [facility]
[address] [place] [address], [place] [phone] * Heparin Anti-Xa (04/05/2025 12:18 AM EDT) Heparin Anti-Xa (UFH) 0.39 0.30 - 0.70 IU/ml 04/05/2025 12:54 AM EDT [facility] Blood Venipuncture / Unknown 04/05/2025 12:18 AM EDT 04/05/2025 12:37 AM EDT Una Perla PharmD LAB BLOOD ORDERABLES Final R esult [facility]
[address] [place] [address], * MRI Tibia Fibula Right With & [...] MD 04/04/2025 11:00 PM EDT Workstation ID: [id number] Narrative 04/04/2025 11:00 PM EDT MRI TIBIA [...] MD 04/04/2025 11:00 PM EDT Workstation ID: [id number] us Leonora Shepherd MD IMG MRI ORDERABLES Final Resu lt * POC Creatinine (04/04/2025 2:49 PM EDT) [facility] Creatinine 1.10 0.60 - 1.30 mg/dL 04/07/2025 7:14 PM EDT [facility] Comment:Serial Number: [id number] 7Operator: [id number] Venous Blood 04/04/2025 2:49 PM EDT 04/07/2025 7:14 PM EDT Jason Álvarez DO POINT OF CARE TEST ORDERABLES Fi nal Result [facility]
[address] [place] [address], * (ABNORMAL) CBC Auto Differential (04/04/2025 2:47 PM EDT) [facility] WBC 12.72(H) 3.40 - 10.80 10*3/mm3 [...] 12.3 - 15.4 % [facility] R[facility]-SD 40.3 37.0 - [...] 19.6 - 45.3 % 04/04/2025 2:56 [facility] Monocyte % 11.2 5.0 - 12.0 % 04/04/2025 2:56 [facility] Eosinophil % 0.4 0.3 - 6.2 % 04/04/2025 2:56 PM EDT [facility] Basophil % 0.2 0.0 - 1.5 % 04/04/2025 2:56 [facility] Immature Grans % 0.2 0.0 - 0.5 % 04/04/2025 2:56 [facility] Neutrophils, Absolute 9.52(H) 1.70 - 7.00 10*3/mm3 04/04/2025 2:56 PM [facility] Lymphocytes, Absolute 1.66 0.70 - 3.10 10*3/mm3 04/04/2025 2:56 PM EDT [facility] Monocytes, Absolute 1.43(H) 0.10 - 0.90 10*3/mm3 04/04/2025 2:56 PM EDT [facility] Eosinophils, Absolute 0.05 0.00 - 0.40 10*3/mm3 04/04/2025 2:56 [facility] Basophils, Absolute 0.03 0.00 - 0.20 10*3/mm3 04/04/2025 2:56 PM EDT [facility] Immature Grans, Absolute 0.03 0.00 - 0.05 10*3/mm3 04/04/2025 2:56 PM EDT [facility] nRBC 0.0 0.0 - 0.2 /100 WBC 04/04/2025 2:56 PM EDT [facility] Blood Venipuncture / Unknown 04/04/2025 2:47 PM EDT 04/04/2025 2:52 PM EDT Mario Ortiz [facility] LAB BLOOD ORDERABLES Fin al Result Performing Organization Address City/[facility]/ZIP Co de Phone Number [facility]
[address] [place] [address], * (ABNORMAL) C-reactive Protein (04/04/2025 2:47 PM EDT) C-Reactive Protein 8.57(H) 0.00 - 0.50 mg/dL 04/04/2025 3:26 PM EDT [facility] Blood Venipuncture / Unknown 04/04/2025 2:47 PM EDT 04/04/2025 2:52 PM EDT Mario Ortiz [facility] [employer] LAB BLOOD ORDERABLES Fin al Result Performing Organization Address [facility] de Phone Number [facility]
[address] [place] [address], * (ABNORMAL) Sedimentation Rate (04/04/2025 2:47 PM EDT) Sed Rate 51(H) 0 - 15 mm/hr 04/04/2025 3:06 PM EDT [facility] Blood Venipuncture / Unknown 04/04/2025 2:47 PM EDT 04/04/2025 2:52 PM EDT Mario Ortiz [facility] LAB BLOOD ORDERABLES Fin al Result Performing Organization Address City/[facility]/ZIP Co de Phone Number [facility]
[address] [place] [address], * Comprehensive Metabolic Panel (04/04/2025 2:47 PM EDT) [facility] Glucose 90 65 - 99 mg/dL [...] ORDERABLES Fin al Result [facility]
[address] [place] [address], documented in this encounter Visit Diagnoses Diagnosis [...] 04/05/2025 3:33 PM EDT 2,000 Units heparin 25112 units/250 mL (100 units/mL) in 0.45 % [...] BPA Driven Protocol Open Order & [facility] Electrolyte Replacement Protocol Algorithm [...] BPA Driven Protocol Open Order & [facility] Electrolyte Replacement Protocol Algorithm [...] disposal. 0831 (Given - Provider: Amber Salazar, [employer]OCHET 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)194 (Given - Provider: Anahy Marcelino, CROCHET 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)2129 (Canceled Entry - Provider: Anahy Marcelino RRT [...] pharmacy for alternative. 2026 (Given - Provider: Ablerto Dillon RN) 2030 (Given - Provider: Alberto [...] Continuous Medication Order 04/09/2025 04/10/2025 04/11/2025 heparin 88875 units/250 mL (100 units/mL) in 0.45 % [...] BPA Driven Protocol Open Order & [facility] Electrolyte Replacement Protocol Algorithm [...] BPA Driven Protocol Open Order & [facility] Electrolyte Replacement Protocol Algorithm [...] documented as of this encounter Care Teams Shingles Roofer Relationship Specialty Start Date End Date Provider, [place] [address] PCP - General 05/09/23 documented as of this encounter
--- OUTSIDE RECORDS SUMMARY | 2025-04-07 18:00 | XMS_ITS | Encounter Summary ---
[facility] Address [address] [place] [address] Care Team Providers Care Systems Tester Name Role Phone Provider, No Known Primary Care Provider Unavail able Reason for Visit * Reason Comments Leg Swelling * Auth/Cert Specialty Diagnoses / Procedures Referred By Contac t Referred To Contact Diagnoses Right BKA infection Referral ID Status Reason Start Date Expiration Date Visits Re quested Visits Authorized [id number] 1 1 Encounter Details Date Type Department Care Team (Late st Contact Info) Description 04/07/2025 6:00 PM EDT - 04/07/2025 6:52 PM EDT Surgery [facility] OR [address] [place] [address] Sushil Dean Jr., MD [address] [place] [address] [address] [id number] LEG DEBRIDEMENT, IRRIGATION Social History Tobacco Use Types Packs/Day Years Used Date Smoking Tobacco: Never Smokeless Tobacco: Never Tobacco Cessation:Counseling Given: Not Answered Alcohol Use Standard Drinks/Week Comments Not Currently 0 (1 standard drink = 0.6 oz pur e alcohol) [facility] Utilities Answer Date Recorded In the past 12 months has [employer] electric, gas, oil, or water company threatened [...] or training? Not on file Preferred Language Albanian 04/07/2025 Sex and Gender Information Value Date [...] 2:25 PM EDT Cherri Grimm RN * [place] Suicide Severity Rating Scale (Screener/Recent Self-Report) Question [...] from the original note were not included. [facility] Medicine Services DISCHARGE SUMMARY Patient [...] Date/Time Wound Culture - Swab, Leg, Right [[id number]] (Abnormal) (Susceptibility) Collected: 04/07/252106 Lab Status: Final [...] Units Date/Time FL C Arm During Surgery [[id number]] Resulted: 04/07/252137 Updated: 04/07/252137 Narrative: This procedure was auto-finalized with no dictation required. MRI Tibia Fibula Right With & Without Contrast [[id number]] Collected: 04/07/25 0938 Updated: 04/07/25 1001 Narrative: [...] Buenrostro 04/07/2025 9:58 AM EDT Workstation ID: [id number] MRI Tibia Fibula Right With & Without Contrast [[id number]] Collected: 04/04/252256 Updated: 04/04/252302 Narrative: MRI TIBIA [...] MD 04/04/2025 11:00 PM EDT Workstation ID: [id number] Pending Labs Order Current Status Fungus Culture [...] Male) Date of 1980 Social Security Number [id number] [place] [address] [place] [address] Zoroastrian Unknown Marital Status Unknown Admission Date 04/04/2025 Admission Type Emergency Admitting Provider Jadyn Richardson DO Attending Provider Jadyn Richardson DO Department, Room/Bed [facility] 5G, S565/1 Discharge Date [...] [place] [id number] Payor Plan Address Payor Plan Phone Number Payor Plan Fax Number Effective Dates [employer] [address] [address] 08/10/2023 - None Entered [facility] [address] Subscriber Name Subscriber Date Member ID WON DENNIS 1980 [id number] Emergency Contacts Post Commander (Rel.) Home Phone Work Phone Mobile Phone Avril Dennis (Spouse) -- -- [phone] Robert Hackett (Relative) -- -- [phone] [facility] 5G [address] [facility] [address] Patient: ROOM: [facility] Won Dennis [address] [facility] [place] [address] : 1980 SSN: [id number] Sex: M PCP: Provider, No Known Emergency Contact Information Name Relation Home Work Mobile Avril Dennis Spouse [phone] Other Contacts Name Relation Home Work Mobile Robert Hackett Relative [phone] INSURANCE PAYOR PLAN GROUP # SUBSCRIBER ID Primary: Secondary: MEDICARE [place] [id number] Admitting Diagnosis: 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] Order Date: Apr 09, 2025 Case Management Residential Coordinator Consult (Order ID: [id number]) Diagnosis: Priority: Routine Expected Date: Expiration Date: Interval: Once Count: Comments: Outpatient orders: 1. Outpatient intravenous antibiotic therapy: Daptomycin 800 mg IV daily to be supplied by [facility] 2. Home health to perform [...] INFECTIOUS DISEASE Progress Note Won Dennis 1980 [id number] Date of Consult: 04/10/2025 Admission Date: 04/04/2025 [...] HDS, on Heparin gtt. Currently [facility] has been asked to manage the [...] Jr., MD, 20 mg at 04/09/25906 heparin 01497 units/250 mL (100 units/mL) in 0.45 % [...] 10 mL, 10 mL, Intravenous, PRN, Sushil Dena Jr., MD sodium chloride 0.9 % flush [...] vancomycin 2750 mg/500 mL 0.9% NS IVPB ([facility]) Ordering Provider: Mario Crowley, DO [...] Units Date/Time FL C Arm During Surgery [[id number]] Resulted: 04/07/252137 Updated: 04/07/252137 Narrative: This procedure was auto-finalized with no dictation required. MRI Tibia Fibula Right With & Without Contrast [[id number]] Collected: 04/07/2538 Updated: 04/07/25 1001 Narrative: MRI [...] Buenrostro 04/07/2025 9:58 AM EDT Workstation ID: [id number] Impression: Recurrent Right BKA stump abscess/cellulitis- this [...] 04/10/251323 Creation Time: 04/10/251323 Signed Expand All [facility] Medicine Services PROGRESS NOTE Patient [...] Date/Time Wound Culture - Swab, Leg, Right [[id number]] (Abnormal) (Susceptibility) Collected: 04/07/252106 Lab Status: Final [...] Row Name 04/06/25 1143 Sit-Stand Transfer Sit-Stand [place] (Transfers) modified independence - Comment, (Sit-Stand Transfer) Pt stood from recliner. Not holding onto walker, pt able to pull his pants up while balancing on his one leg. -LM Row Name 04/06/25 1143 Gait/Stairs (Locomotion) [place] Level (Gait) modified independence - Distance in [...] Motion bilateral lower extremity ROM WFL -LM [facility] Name 04/06/25 1145 Strength Comprehensive (MMT) General Manual Muscle Testing (MMT) Assessment no strength deficits identified BLEs -LM [facility] Name 04/06/25 1145 Balance Balance Assessment sitting [...] Therapist Goals/Plan No documentation. Clinical Impression [facility] 04/06/25 1146 Pain Pretreatment Pain Rating 0/10 - no pain -LM Posttreatment Pain Rating 0/10 - no pain -LM [facility] 04/06/25 1146 Plan of Care Review Plan of Care Reviewed With patient -LM Outcome Evaluation PT evaluation completed. Pt demonstrated independence with all mobility including ambulating 100 feet using rw - no unsteadiness noted. Pt reports he feels at baseline and doesn't think he needs skilled PT while here. Recommend home at d/c. PT signing off. -LM [facility] Name 04/06/25 1146 Therapy Assessment/Plan (PT) Criteria for Skilled Interventions Met (PT) no;no problems identified which require skilled intervention -LM Therapy Frequency (PT) evaluation only -LM Predicted Duration of Therapy Intervention (PT) Eval Only -LM [facility] Name 04/06/25 1146 Vital Signs Pretreatment Heart Rate (beats/min) 86 -LM Posttreatment Heart Rate (beats/min) 96 -LM Pre SpO2 (%) 95 -LM O2 Delivery Pre Treatment room air -LM Post SpO2 (%) 96 -LM O2 Delivery Post Treatment room air -LM Pre Patient Position Sitting -LM Post Patient Position Sitting -LM [facility] Name 04/06/25 1146 Positioning and Restraints Pre-Treatment [...] Nurse Physical Therapy Education Title: PT OT MILK WAGON DRIVER Therapies (Done) Topic: Physical Therapy (Done) Point: Mobility training (Done) Learning Progress Summary Patient Acceptance, E, VU,DU by at 04/06/2025 1147 Point: Precautions (Done) Learning Progress Summary Patient Acceptance, E, VU,DU by at 04/06/2025 1147 User Cabrera Initials Effective Dates Name Provider Type [facility] 01/24/25 - Susan Cavazos, PT Physical [...] Description Service Date Service Provider Modifiers Qty [id number] PT EVAL LOW COMPLEXITY 3 04/06/2025 Susan [...] mg Daily 04/05/2025 -- Route: Oral heparin 30697 units/250 mL (100 units/mL) in 0.45 % [...] 22 [facility] [address], [address] [facility], [address] Please schedule at [phone] VONDA Garcia 04/11/25 08:32 EDT Cosigned by Sushil Dean Jr., MD at 04/19/2025 10:33 AM EDT Associated attestation - Sushil Dean Jr., MD - 04/19/2025 10:33 AM EDT I have reviewed this documentation and agree. * Rosario Hill APRN - 04/10/2025 1:24 PM EDT Images from the original note were not included. [facility] Medicine Services PROGRESS NOTE Patient [...] Date/Time Wound Culture - Swab, Leg, Right [[id number]] (Abnormal) (Susceptibility) Collected: 04/07/252106 Lab Status: Final [...] mg Daily 04/05/2025 -- Route: Oral heparin 90152 units/250 mL (100 units/mL) in 0.45 % [...] 22 [facility] [address] [facility], [address] [facility], [address] Please schedule at [phone] VONDA Garcia 04/10/25 09:01 EDT Cosigned by Sushil Dean Jr., MD at 04/19/2025 10:33 AM EDT Associated attestation - Sushil Dean Jr., MD - 04/19/2025 10:33 AM EDT I have reviewed this documentation and agree. * Carlton Mead MD - 04/10/2025 7:38 AM EDT Images from the original note were not included. INFECTIOUS DISEASE Progress Note Won Dennis 1980 [id number] Date of Consult: 04/10/2025 Admission Date: 04/04/2025 [...] HDS, on Heparin gtt. Currently [facility] has been asked to manage the [...] IRRIGATION; Surgeon: Sushil Dean Jr., MD; Location: [facility]; Service: Orthopedics; Laterality: Right; PLACEMENT OF WOUND VAC Right 04/07/2025 Procedure: WOUND VACUUM ASSISTED CLOSURE; Surgeon: Sushil Dean Jr., MD; Location: [facility] OR; Service: Orthopedics; Laterality: Right; WOUND CLOSURE [...] Jr., MD, 20 mg at 04/09/25906 heparin 38324 units/250 mL (100 units/mL) in 0.45 % [...] Units Date/Time FL C Arm During Surgery [[id number]] Resulted: 04/07/252137 Updated: 04/07/252137 Narrative: This procedure was auto-finalized with no dictation required. MRI Tibia Fibula Right With & Without Contrast [[id number]] Collected: 04/07/25937 Updated: 04/07/25 100 Narrative: MRI [...] of osteomyelitis at this time. Electronically Signed: Huhg Buenrostro 04/07/2025 9:58 AM EDT Workstation ID: [id number] Impression: Recurrent Right BKA stump abscess/cellulitis- this [...] 04/10/2025 07:38 EDT * Larisa Hamilton [facility] - 04/10/2025 7:17 AM EDT [...] from the original note were not included. [facility] Medicine Services PROGRESS NOTE Patient [...] Date/Time Wound Culture - Swab, Leg, Right [[id number]] (Abnormal) Collected: 04/07/252106 Lab Status: Preliminary result [...] Álvarez DO 04/09/25 * Larisa Hamilton [facility] - 04/09/2025 11:36 AM EDT [...] -- Admin Instructions: Open Order & Select [facility] Electrolyte Replacement Protocol Algorithm to [...] mg Daily 04/05/2025 -- Route: Oral heparin 43542 units/250 mL (100 units/mL) in 0.45 % [...] -- Admin Instructions: Open Order & Select [facility] Electrolyte Replacement Protocol Algorithm to [...] radiographs [facility] [address], [address] [facility], [address] Please schedule at [phone] VONDA Garcia 04/09/25 09:18 EDT Cosigned by Sushil Dean Jr., MD at 04/19/2025 10:33 AM EDT Associated attestation - Sushil Dean Jr., MD - 04/19/2025 10:33 AM EDT I have reviewed this documentation and agree. * Carlton Mead MD - 04/09/2025 8:25 AM EDT Images from the original note were not included. INFECTIOUS DISEASE Progress Note Won Dennis 1980 [id number] Date of Consult: 04/09/2025 Admission Date: 04/04/2025 [...] HDS, on Heparin gtt. Currently [facility] has been asked to manage the [...] IRRIGATION; Surgeon: Sushil Dean Jr., MD; Location: [facility]; Service: Orthopedics; Laterality: Right; PLACEMENT OF WOUND VAC Right 04/07/2025 Procedure: WOUND VACUUM ASSISTED CLOSURE; Surgeon: Sushil Dean Jr., MD; Location: [facility] OR; Service: Orthopedics; Laterality: Right; History reviewed. [...] Not Applicable, PRN, Sushil Dena Jr., MD cefTRIAXone (ROCEPHIN) 2,000 mg in [...] MD, 20 mg at 04/08/25 0800 heparin 66171 units/250 mL (100 units/mL) in 0.45 % [...] Units Date/Time FL C Arm During Surgery [[id number]] Resulted: 04/07/252137 Updated: 04/07/252137 Narrative: This procedure was auto-finalized with no dictation required. MRI Tibia Fibula Right With & Without Contrast [[id number]] Collected: 04/07/25 0938 Updated: 04/07/25 1001 Narrative: [...] Chitra 04/07/2025 9:58 AM EDT Workstation ID: [id number] Impression: Recurrent Right BKA stump abscess/cellulitis- this [...] mg IV daily to be supplied by [facility] 2. Home health to perform [...] from the original note were not included. [facility] Medicine Services PROGRESS NOTE Patient [...] Buenrostro 04/07/2025 9:58 AM EDT Workstation ID: [id number] I have personally reviewed the therapy plans: [...] Álvarez, DO 04/08/25 * Hamilton, Larisa, [facility] - 04/08/2025 11:48 AM EDT [...] -- Admin Instructions: Open Order & Select [facility] Electrolyte Replacement Protocol Algorithm to [...] mg Daily 04/05/2025 -- Route: Oral heparin 56832 units/250 mL (100 units/mL) in 0.45 % [...] INFECTIOUS DISEASE Progress Note Won Dennis 1980 [id number] Date of Consult: 04/08/2025 Admission Date: 04/04/2025 [...] HDS, on Heparin gtt. Currently [facility] has been asked to manage the [...] Sushil Dean Jr., MD; Location: [facility] OR; Service: Orthopedics; Laterality: Right; PLACEMENT OF WOUND VAC Right 04/07/2025 Procedure: WOUND VACUUM ASSISTED CLOSURE; Surgeon: Sushil Dean Jr., MD; Location: [facility] OR; Service: Orthopedics; Laterality: Right; History reviewed. [...] Oral, Q6H PRN, 500 mg at 04/06/25 7564 OR acetaminophen (TYLENOL) 160 MG/5ML oral solution [...] Jr., MD, 20 mg at 04/07/25950 heparin 62255 units/250 mL (100 units/mL) in 0.45 % [...] vancomycin 2750 mg/500 mL 0.9% NS IVPB ([facility]) Ordering Provider: Mario Crowley, DO [...] Units Date/Time FL C Arm During Surgery [[id number]] Resulted: 04/07/252137 Updated: 04/07/252137 Narrative: This procedure was auto-finalized with no dictation required. 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 (Treated by ID in [place] Dr. Harris). Dr. Torres treated him with [...] from the original note were not included. [facility] Medicine Services PROGRESS NOTE Patient [...] Buenrostro 04/07/2025 9:58 AM EDT Workstation ID: [id number] I have personally reviewed the therapy plans: [...] DO Preeti 04/07/25 * Larisa Hamilton, [facility] - 04/07/2025 11:56 AM EDT [...] INFECTIOUS DISEASE Progress Note Won Dennis 1980 [id number] Date of Consult: 04/07/2025 Admission Date: 04/04/2025 [...] HDS, on Heparin gtt. Currently [facility] has been asked to manage the [...] MD, 20 mg at 04/06/25 0900 heparin 12069 units/250 mL (100 units/mL) in 0.45 % NaCl infusion, 18 Units/kg/hr, Intravenous, Titrated, Cherri Beatty, [facility], Last Rate: 24.1 mL/hr at [...] With & Without Contrast - In process [[id number]] Resulted: 04/07/25828 Updated: 04/07/25828 This result has not been signed. Information might be incomplete. 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 (Treated by ID in [place] Dr. Harris). Dr. Torres treated him with [...] -- Admin Instructions: Open Order & Select [facility] Electrolyte Replacement Protocol Algorithm to [...] mg Daily 04/05/2025 -- Route: Oral heparin 09611 units/250 mL (100 units/mL) in 0.45 % [...] -- Admin Instructions: Open Order & Select [facility] Electrolyte Replacement Protocol Algorithm to [...] 04/07/25 06:07 EDT * Cherri Beatty [facility] - 04/06/2025 1:47 PM EDT [...] from the original note were not included. [facility] Medicine Services PROGRESS NOTE Patient [...] MD 04/04/2025 11:00 PM EDT Workstation ID: [id number] I have personally reviewed the therapy plans: [...] mg Daily 04/05/2025 -- Route: Oral heparin 57738 units/250 mL (100 units/mL) in 0.45 % [...] -- Admin Instructions: Open Order & Select [facility] Electrolyte Replacement Protocol Algorithm to [...] -- Admin Instructions: Open Order & Select [facility] Electrolyte Replacement Protocol Algorithm to [...] INFECTIOUS DISEASE follow up. Won Dennis 1980 [id number] Date of Consult: 04/06/2025 Admission Date: 04/04/2025 [...] HDS, on Heparin gtt. Currently [facility] has been asked to manage the [...] MD, 20 mg at 04/06/25 0900 heparin 10930 units/250 mL (100 units/mL) in 0.45 % NaCl infusion, 18 Units/kg/hr, Intravenous, Titrated, Cherri Beatty [facility], Last Rate: 24.1 mL/hr at [...] Tibia Fibula Right With & Without Contrast [[id number]] Collected: 04/04/252256 Updated: 04/04/252302 Narrative: MRI TIBIA [...] represent a small area of phlegmonous change ([id number] image 10) measuring approximately 1.6 cm which [...] MD 04/04/2025 11:00 PM EDT Workstation ID: [id number] Impression: 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 (Treated by ID in [place] Dr. Harris). Dr. Torres treated him with [...] from the original note were not included. [facility] Medicine Services PROGRESS NOTE Patient [...] MD 04/04/2025 11:00 PM EDT Workstation ID: [id number] I have personally reviewed the therapy plans: [...] from the original note were not included. [facility] Medicine Services HISTORY AND PHYSICAL [...] MD 04/04/2025 11:00 PM EDT Workstation ID: [id number] Assessment & Plan Assessment & Plan Won [...] 4FR PICC placed by Rhoda Bonner RN [facility], tip verified by 3CG see LDA. * Sushil Dean Jr., MD - 04/05/2025 8:07 AM EDTAssociated Order(s): IP CONSULT TO ORTHOPEDIC SURGERY [facility], [facility] [address] [address] Orthopedic Consult Patient: Won Dennis Date of Admission: 04/04/2025 4:10 PM Date of : 1980 Attending Physician: Jason Álvarez DO Consulting Physician: Sushil Dean Jr, MD Chief Complaint: 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 male admitted to [facility] with Right BKA infection [...] was evaluated in the emergency department in [place], was discharged with instructions for follow-up. He [...] tablet by mouth Daily. 04/03/2025 Morning Lactobacillus-Inulin ([facility]) capsule Take 200 mg by mouth [...] MD 04/04/2025 11:00 PM EDT Workstation ID: [id number] Assessment: Right BKA infection 44-year-old male with [...] DISEASE CONSULT/INITIAL HOSPITAL VISIT Won Dennis 1980 [id number] Date of Consult: 04/05/2025 Admission Date: 04/04/2025 [...] HDS, on Heparin gtt. Currently [facility] has been asked to manage the [...] Leonora Shepherd MD, 40 mg at 04/04/25 0610 sennosides-docusate (PERICOLACE) 8.6-50 MG per tablet 2 [...] MD, 20 mg at 04/05/25 09 heparin 41509 units/250 mL (100 units/mL) in 0.45 % [...] Leonora Shepherd MD, 10 mg at 04/04/25 1055 Pharmacy to Dose Heparin, , Not Applicable, [...] Tibia Fibula Right With & Without Contrast [[id number]] Collected: 04/04/252256 Updated: 04/04/252302 Narrative: MRI TIBIA [...] represent a small area of phlegmonous change ([id number] image 10) measuring approximately 1.6 cm which [...] MD 04/04/2025 11:00 PM EDT Workstation ID: [id number] Impression: 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 (Treated by ID in [place] Dr. Harris). Dr. Torres treated him with [...] infection POSTOP DIAGNOSIS: Same. PROCEDURE: Right Right 66114: Secondary closure below-knee amputation SURGEON: Sushil Dean MD OPERATIVE TEAM: Vp Research: Susi Grullon RN Scrub Person: Mary Paredes Scrub Person Extra: Hortencia Toribio Other: Katt Gotti RN; Charis Neville RN ANESTHETIST: Anesthesiologist: Ulises Hoffman MD VP CORPORATE PARTNERSHIPS: Stan Casillas CRNA Student Nurse Tire Builder Operator: Karol Albert SRNA ANESTHESIA: Choice ESTIMATED [...] CULTURE (Canceled) Sushil Dean Jr., MD 04/08/25 6115 Description: RIGHT LEG DEEP WOUND FOR CULTURE [...] PM EDT [facility], [place] [address] OPERATIVE REPORT PATIENT NAME: Won Dennis DATE OF : 1980 PREOP DIAGNOSIS: Right Right below knee amputation stump infection POSTOP DIAGNOSIS: Same. PROCEDURE: Right Right 96726: Incision and drainage of surgical site infection 56803: Debridement of skin, subcutaneous tissue, muscle 66437: Wound vacuum-assisted closure SURGEON: Sushil Dean MD OPERATIVE TEAM: Vp Research: Anum Sanchez RN Scrub Person: Hortencia Toribio; Gerald Ivey ELDER COUNSELOR: Anesthesiologist: Luci Alonso DO ANESTHESIA: General ESTIMATED [...] this chart in the absence of a film printer. No orders to display RADIOLOGY: [x] Radiologist's [...] home with outpatient infusion at [facility]. He has an appointment with [facility] at 8:00 am tomorrow. They will do [...] to get IV ABX at home with [facility]; however, Medicaid lapsed on 04/08. DEBRA was unaware until this morning that Medicaid has lapsed. Patient explained that he has Medicare A and B. CM spoke with KELLEE and given themhis Medicare number [id number], she sent it to Admission. DEBRA spoke with Kerri, with [facility], and explained that he had Medicare A and B. However, it will not cover home infusion. It will be $64.00 a day out of packet. Patients can go to the Infusion center at [facility], and it will cover the cost as an outpatient. He will need to go there every day for infusion. They will be able to do the patients' PICC line dressing changes and lab work. DEBRA called [facility] they can accept patient and start him. He is known for their facility. The Facility will need to run it through his insurance first. CM faxed the orders over to [facility] at [phone]. CM will follow up with them tomorrow at [facility] to make sure they received the orders. [...] 04/09/2025 2:51 PM EDT Continued Stay Note [facility] Patient Name: Won Dennis Today's Date: 04/09/2025 Admit Date: 04/04/2025 Plan: Home Discharge Plan Row Name 04/09/25 1311 Plan Plan Home Patient/Family in Agreement with Plan yes Plan Comments CM spoke with patient at bedside today. Wheelchair from [employer] is at bedside. Patient getting PICC line [...] note were not included. Discharge Planning Assessment [facility] Patient Name: Won Dennis Today's Date: [...] with family Patient/Family Anticipated Services at Transition telehealth case manageranimal rides manager Anticipated family or friend will provide Discharge Needs Assessment Equipment Currently Used at Home glucometer;shower chair;pulse ox;bp cuff;prosthesis;crutches Equipment Needed After Discharge none Discharge Plan Row Name 04/07/25 1144 Plan Plan Home Patient/Family in Agreement with Plan yes Plan Comments CM spoke with patient at bedside today. Patient lives with and his 5 kids in [facility] [facility]. 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 He has walker, cane, shower chair, and crutches. He requested a wheelchair for home. CM will order wheelchair [facility]. He is not current with home health services. PCP is Dr. Jordan. Insurance is [employer] [place]. Patient discharge plan is home with priavte transport. CM will follow for any discharge needs. Final Discharge Disposition Code 01 - home or self-care Continued Care and Services - Admitted Since 04/04/2025 No active coordination exists. Demographic Summary Row Name 04/07/25 1143 General Information Arrived From hospital Preferred Language Albanian Functional Status Row Name 04/07/25 1143 Functional [...] CBC Auto Differential (04/11/2025 3:40 AM EDT) [facility] WBC 7.87 3.40 - 10.80 10*3/mm3 04/11/2025 4:02 AM EDT [facility] RBC 4.70 4.14 - 5.80 10*6/mm3 04/11/2025 4:02 AM [facility] Hemoglobin 12.8(L) 13.0 - 17.7 g/dL 04/11/2025 4:02 AM [facility] Hematocrit 40.5 37.5 - 51.0 % 04/11/2025 4:02 AM [facility] MCV 86.2 79.0 - 97.0 fL 04/[facility]25 [facility] MCH 27.2 26.6 - 33.0 pg 04/11/2025 4:02 AM [facility] MCHC 31.6 31.5 - 35.7 g/dL 04/11/2025 4:02 AM [facility] RDW 12.9 12.3 - 15.4 % 04/11/2025 4:02 AM [facility] RDW-SD 40.5 37.0 - 54.0 fl 04/11/2025 4:02 AM [facility] MPV 9.2 6.0 - 12.0 fL 04/11/2025 4:02 AM [facility] Platelets 267 140 - 450 10*3/mm3 04/11/2025 4:02 AM [facility] Neutrophil % 59.5 42.7 - 76.0 % 04/11/2025 4:02 AM [facility] Lymphocyte % 26.3 19.6 - 45.3 % 04/11/2025 4:02 AM [facility] Monocyte % 9.3 5.0 - 12.0 % 04/11/2025 4:02 AM [facility] Eosinophil % 4.1 0.3 - 6.2 % 04/11/2025 4:02 [facility] Basophil % 0.4 0.0 - 1.5 % 04/11/2025 4:02 [facility] Immature Grans % 0.4 0.0 - 0.5 % 04/11/2025 4:02 AM [facility] Neutrophils, Absolute 4.69 1.70 - 7.00 10*3/mm3 04/11/2025 4:02 AM EDT [facility] Lymphocytes, Absolute 2.07 0.70 - 3.10 10*3/mm3 04/11/2025 4:02 AM EDT [facility] Monocytes, Absolute 0.73 0.10 - 0.90 10*3/mm3 04/11/2025 4:02 AM EDT [facility] Eosinophils, Absolute 0.32 0.00 - 0.40 10*3/mm3 04/11/2025 4:02 AM EDT [facility] Basophils, Absolute 0.03 0.00 - 0.20 10*3/mm3 04/11/2025 4:02 AM EDT [facility] Immature Grans, Absolute 0.03 0.00 - 0.05 10*3/mm3 04/11/2025 4:02 AM EDT [facility] nRBC 0.0 0.0 - 0.2 /100 WBC 04/11/2025 4:02 AM EDT [facility] Blood Venipuncture / Unknown 04/11/2025 3:40 AM EDT 04/11/2025 3:59 AM EDT us Sushil Dean Jr., MD LAB BLOOD ORDERABLES Fi nal Result [facility]
[address] [place] [address], * (ABNORMAL) Comprehensive Metabolic Panel (04/11/2025 3:40 AM EDT) [facility] Signature Glucose 108(H) 65 - 99 mg/dL 04/11/2025 4:19 AM EDT [facility] BUN 12.5 6.0 - 20.0 mg/dL 04/11/2025 4:19 AM EDT [facility] Creatinine 0.68(L) 0.76 - 1.27 mg/dL 04/11/2025 4:19 AM [facility] Sodium 140 136 - 145 mmol/L 04/11/2025 4:19 AM [facility] Potassium 3.8 3.5 - 5.2 mmol/L 04/11/2025 4:19 AM [facility] Chloride 105 98 - 107 mmol/L 04/11/2025 4:19 AM [facility] CO2 28.2 22.0 - 29.0 mmol/L 04/11/2025 4:19 AM [facility] Calcium 8.2(L) 8.6 - 10.5 mg/dL 04/11/2025 4:19 AM [facility] Total Protein 6.1 6.0 - 8.5 g/dL 04/11/2025 4:19 AM [facility] Albumin 3.1(L) 3.5 - 5.2 g/dL 04/11/2025 4:19 AM [facility] ALT (SGPT) 52(H) 1 - 41 U/L 04/11/2025 4:19 AM [facility] AST (SGOT) 40 1 - 40 U/L 04/11/2025 4:19 AM [facility] Alkaline Phosphatase 99 39 - 117 U/L 04/11/2025 4:19 AM [facility] Total Bilirubin 0.2 0.0 - 1.2 mg/dL 04/11/2025 4:19 AM [facility] Globulin 3.0 gm/dL 04/11/2025 4:19 AM [facility] Comment:Calculated Result A/G Ratio 1.0 g/dL 04/11/2025 4:19 AM [facility] BUN/Creatinine Ratio 18.4 7.0 - 25.0 04/11/2025 4:19 AM [facility] Anion Gap 6.8 5.0 - 15.0 mmol/L 04/11/2025 4:19 AM [facility] eGFR 117.5 >60.0 mL/min/1.7 3 04/11/2025 4:19 AM EDT [facility] Blood Venipuncture / Unknown 04/11/2025 3:40 AM EDT 04/11/2025 3:56 AM EDT [facility] - 04/11/2025 4:19 AM [...] include race as a factor [place] LNA LAB BLOOD ORDERABLES Final Result [facility]
[address] [place] [address], * (ABNORMAL) CBC Auto Differential (04/10/2025 3:46 AM EDT) WBC 9.60 3.40 - 10.80 10*3/mm3 04/10/2025 3:56 AM EDT [facility] RBC 4.67 4.14 - 5.80 10*6/mm3 04/10/2025 3:56 AM EDT [facility] Hemoglobin 12.9(L) 13.0 - 17.7 g/dL 04/10/2025 3:56 AM EDT [facility] Hematocrit 40.1 37.5 - 51.0 % 04/10/2025 3:56 AM EDT [facility] MCV 85.9 79.0 - 97.0 fL 04/10/2025 3:56 AM EDT [facility] MCH 27.6 26.6 - 33.0 pg 04/10/2025 3:56 AM EDT [facility] MCHC 32.2 31.5 - 35.7 g/dL 04/10/2025 3:56 [facility] RDW 12.9 12.3 - 15.4 % 04/10/2025 3:56 AM [facility] RDW-SD 40.5 37.0 - 54.0 fl 04/10/2025 3:56 AM [facility] MPV 9.5 6.0 - 12.0 fL 04/10/2025 3:56 AM EDT [facility] Platelets 227 140 - 450 10*3/mm3 04/10/2025 3:56 AM [facility] Neutrophil % 59.1 42.7 - 76.0 % 04/10/2025 3:56 AM [facility] Lymphocyte % 29.0 19.6 - 45.3 % 04/10/2025 3:56 AM [facility] Monocyte % 8.1 5.0 - 12.0 % 04/10/2025 3:56 [facility] Eosinophil % 3.2 0.3 - 6.2 % 04/10/2025 3:56 AM [facility] Basophil % 0.4 0.0 - 1.5 % 04/10/2025 3:56 AM [facility] Immature Grans % 0.2 0.0 - 0.5 % 04/10/2025 3:56 AM [facility] Neutrophils, Absolute 5.67 1.70 - 7.00 10*3/mm3 04/10/2025 3:56 AM [facility] Lymphocytes, Absolute 2.78 0.70 - 3.10 10*3/mm3 04/10/2025 3:56 AM [facility] Monocytes, Absolute 0.78 0.10 - 0.90 10*3/mm3 04/10/2025 3:56 [facility] Eosinophils, Absolute 0.31 0.00 - 0.40 10*3/mm3 04/10/2025 3:56 AM [facility] Basophils, Absolute 0.04 0.00 - 0.20 10*3/mm3 04/10/2025 3:56 AM EDT [facility] Immature Grans, Absolute 0.02 0.00 - 0.05 10*3/mm3 04/10/2025 3:56 AM EDT [facility] nRBC 0.0 0.0 - 0.2 /100 WBC 04/10/2025 3:56 AM EDT [facility] Blood Venipuncture / Unknown 04/10/2025 3:46 AM EDT 04/10/2025 3:53 AM EDT us Jason Álvarez DO LAB BLOOD ORDERABLES Final Resul t [facility]
[address] [place] [address], * (ABNORMAL) Basic Metabolic Panel (04/10/2025 3:46 AM EDT) Glucose 125(H) 65 - 99 mg/dL 04/10/2025 4:20 AM EDT [facility] BUN 15.9 6.0 - 20.0 mg/dL 04/10/2025 4:20 AM EDT [facility] Creatinine 0.77 0.76 - 1.27 mg/dL 04/10/2025 4:20 AM EDT [facility] Sodium 137 136 - 145 mmol/L 04/10/2025 4:20 AM EDT [facility] Potassium 3.9 3.5 - 5.2 mmol/L 04/10/2025 4:20 AM EDT [facility] Chloride 102 98 - 107 mmol/L 04/10/2025 4:20 AM EDT [facility] CO2 26.9 22.0 - 29.0 mmol/L 04/10/2025 4:20 AM EDT [facility] Calcium 7.9(L) 8.6 - 10.5 mg/dL 04/10/2025 4:20 AM EDT [facility] BUN/Creatinine Ratio 20.6 7.0 - 25.0 04/10/2025 4:20 AM EDT [facility] Anion Gap 8.1 5.0 - 15.0 mmol/L 04/10/2025 4:20 AM EDT [facility] eGFR 113.2 >60.0 mL/min/1.7 3 04/10/2025 4:20 AM EDT [facility] Blood Venipuncture / Unknown 04/10/2025 3:46 AM EDT 04/10/2025 3:52 AM EDT Narrative [facility] - 04/10/2025 4:20 [...] DO LAB BLOOD ORDERABLES Final Resul t [facility]
[address] [place] [address], * Heparin Anti-Xa (04/10/2025 3:46 AM EDT) Heparin Anti-Xa (UFH) 0.35 0.30 - 0.70 IU/ml 04/10/2025 4:23 AM EDT [facility] Blood Venipuncture / Unknown 04/10/2025 3:46 AM EDT 04/10/2025 3:53 AM EDT Larisa Hamilton [facility] LAB BLOOD ORDERABLES Final R esult [facility]
[address] [place] [address], * Heparin Anti-Xa (04/09/2025 10:05 AM EDT) Pathologist [facility] Heparin Anti-Xa (UFH) 0.36 0.30 - 0.70 IU/ml 04/09/2025 11:12 AM EDT [facility] Blood Venipuncture / Unknown 04/09/2025 10:05 AM EDT 04/09/2025 10:47 AM EDT Larisa Hamilton [facility] LAB BLOOD ORDERABLES Final R esult [facility]
[address] [place] [address], * (ABNORMAL) CBC Auto Differential (04/09/2025 4:18 AM EDT) Pathologist [facility] WBC 11.00(H) 3.40 - 10.80 10*3/mm3 04/09/2025 4:50 AM EDT [facility] RBC 4.70 4.14 - 5.80 10*6/mm3 04/09/2025 4:50 AM EDT [facility] Hemoglobin 13.0 13.0 - 17.7 g/dL 04/09/2025 4:50 AM EDT [facility] Hematocrit 40.4 37.5 - 51.0 % 04/09/2025 4:50 AM EDT [facility] MCV 86.0 79.0 - 97.0 fL 04/09/2025 4:50 AM EDT [facility] MCH 27.7 26.6 - 33.0 pg 04/09/2025 4:50 AM EDT [facility] MCHC 32.2 31.5 - 35.7 g/dL 04/09/2025 4:50 AM EDT [facility] RDW 12.8 12.3 - 15.4 % 04/09/2025 4:50 AM [facility] RDW-SD 39.9 37.0 - 54.0 fl 04/09/2025 4:50 AM [facility] MPV 10.0 6.0 - 12.0 fL 04/09/2025 4:50 AM [facility] Platelets 211 140 - 450 10*3/mm3 04/09/2025 4:50 [facility] Neutrophil % 74.8 42.7 - 76.0 % 04/09/2025 4:50 AM [facility] Lymphocyte % 15.4(L) 19.6 - 45.3 % 04/09/2025 4:50 AM [facility] Monocyte % 8.5 5.0 - 12.0 % 04/09/2025 4:50 AM [facility] Eosinophil % 0.6 0.3 - 6.2 % 04/09/2025 4:50 AM [facility] Basophil % 0.4 0.0 - 1.5 % 04/09/2025 4:50 AM [facility] Immature Grans % 0.3 0.0 - 0.5 % 04/09/2025 4:50 AM [facility] Neutrophils, Absolute 8.23(H) 1.70 - 7.00 10*3/mm3 04/09/2025 4:50 AM [facility] Lymphocytes, Absolute 1.69 0.70 - 3.10 10*3/mm3 04/09/2025 4:50 AM [facility] Monocytes, Absolute 0.94(H) 0.10 - 0.90 10*3/mm3 04/09/2025 4:50 [facility] Eosinophils, Absolute 0.07 0.00 - 0.40 10*3/mm3 04/09/2025 4:50 AM [facility] Basophils, Absolute 0.04 0.00 - 0.20 10*3/mm3 04/09/2025 4:50 AM [facility] Immature Grans, Absolute 0.03 0.00 - 0.05 10*3/mm3 04/09/2025 4:50 AM EDT [facility] nRBC 0.0 0.0 - 0.2 /100 WBC 04/09/2025 4:50 AM EDT [facility] Blood Venipuncture / Unknown 04/09/2025 4:18 AM EDT 04/09/2025 4:31 AM EDT Sushil Dean Jr., MD LAB BLOOD ORDERABLES Fi nal Result [facility]
[address] [place] [address], * Heparin Anti-Xa (04/09/2025 4:18 AM EDT) Heparin Anti-Xa (UFH) 0.41 0.30 - 0.70 IU/ml 04/09/2025 4:53 AM EDT [facility] Blood Venipuncture / Unknown 04/09/2025 4:18 AM EDT 04/09/2025 4:31 AM EDT Una LundbergD LAB BLOOD ORDERABLES Final R esult [facility]
[address] [place] [address], * (ABNORMAL) Basic Metabolic Panel (04/09/2025 4:18 AM EDT) Glucose 147(H) 65 - 99 mg/dL 04/09/2025 5:33 AM EDT [facility] BUN 23.0(H) 6.0 - 20.0 mg/dL 04/09/2025 5:33 AM EDT [facility] Creatinine 1.15 0.76 - 1.27 mg/dL 04/09/2025 5:33 AM EDT [facility] Sodium 135(L) 136 - 145 mmol/L 04/09/2025 5:33 AM EDT [facility] Potassium 4.2 3.5 - 5.2 mmol/L 04/09/2025 5:33 AM EDT [facility] Chloride 100 98 - 107 mmol/L 04/09/2025 5:33 AM EDT [facility] CO2 26.0 22.0 - 29.0 mmol/L 04/09/2025 5:33 AM EDT [facility] Calcium 8.2(L) 8.6 - 10.5 mg/dL 04/09/2025 5:33 AM EDT [facility] BUN/Creatinine Ratio 20.0 7.0 - 25.0 04/09/2025 5:33 AM EDT [facility] Anion Gap 9.0 5.0 - 15.0 mmol/L 04/09/2025 5:33 AM EDT [facility] eGFR 80.5 >60.0 mL/min/1.7 3 04/09/2025 5:33 AM EDT [facility] Blood Venipuncture / Unknown 04/09/2025 4:18 AM EDT 04/09/2025 4:29 AM EDT [facility] - 04/09/2025 5:33 AM EDT [...] MD LAB BLOOD ORDERABLES Fi nal Result [facility]
[address] [place] [address], * Wound Culture - Swab, Leg, Right (04/08/2025 3:40 PM EDT) Wound Culture No growth at 3 days ALIZA 04/11/2025 10:40 AM EDT [facility] Gram Stain Few (2+) WBCs seen 04/11/2025 10:40 AM EDT [facility] Gram Stain No organisms seen 04/11/2025 10:40 AM EDT [facility] Swab Structure of right lower limb / Unknown 04/08/2025 3:40 PM EDT 04/08/2025 8:05 PM EDT Sushil Dean Jr., MD MICROBIOLOGY - GENERAL ORDERABLES Final Result Performing Organization Address City/[facility]/ZIP Co de Phone Number [facility]
[address] [place] [address], [facility]
[address] [place] [address], * Anaerobic Culture - Swab, Leg, Right (04/08/2025 3:40 PM EDT) Pathologist [facility] Anaerobic Culture No anaerobes isolated at 5 days ALIZA 04/13/2025 7:24 AM EDT [facility] Swab Structure of right lower limb / Unknown 04/08/2025 3:40 PM EDT 04/08/2025 8:05 PM EDT Sushil Dean Jr., MD MICROBIOLOGY - GENERAL ORDERABLES Final Result [facility]
[address] [place] [address], * Scan Slide (04/08/2025 8:41 AM EDT) RBC Morphology Normal Normal 04/08/2025 11:02 AM EDT [facility] WBC Morphology Normal Normal 04/08/2025 11:02 AM EDT [facility] Platelet Estimate Adequate Normal 04/08/2025 11:02 AM EDT [facility] Clumped Platelets Present None Seen 04/08/2025 11:02 AM EDT [facility] Blood Venipuncture / Unknown 04/08/2025 8:41 AM EDT 04/08/2025 9:10 AM EDT Una Minda PharmD LAB BLOOD ORDERABLES Final R esult [facility]
[address] [place] [address], * (ABNORMAL) CBC Auto Differential (04/08/2025 8:41 AM EDT) WBC 10.07 3.40 - 10.80 10*3/mm3 04/08/2025 11:02 AM EDT [facility] RBC 5.01 4.14 - 5.80 10*6/mm3 04/08/2025 11:02 AM EDT [facility] Hemoglobin 14.0 13.0 - 17.7 g/dL 04/08/2025 11:02 AM EDT [facility] Hematocrit 42.7 37.5 - 51.0 % 04/08/2025 11:02 AM EDT [facility] MCV 85.2 79.0 - 97.0 fL 04/08/2025 11:02 AM EDT [facility] MCH 27.9 26.6 - 33.0 pg 04/08/2025 11:02 AM EDT [facility] MCHC 32.8 31.5 - 35.7 g/dL 04/08/2025 11:02 AM EDT [facility] RDW 12.6 12.3 - 15.4 % 04/08/2025 11:02 AM EDT [facility] RDW-SD 38.9 37.0 - 54.0 fl 04/08/2025 11:02 AM [facility] MPV 11.0 6.0 - 12.0 fL 04/08/2025 11:02 AM [facility] Platelets 118(L) 140 - 450 10*3/mm3 04/08/2025 11:02 AM [facility] Neutrophil % 85.1(H) 42.7 - 76.0 % 04/08/2025 11:02 AM [facility] Lymphocyte % 9.3(L) 19.6 - 45.3 % 04/08/2025 11:02 AM [facility] Monocyte % 4.6(L) 5.0 - 12.0 % 04/08/2025 11:02 AM [facility] Eosinophil % 0.3 0.3 - 6.2 % 04/08/2025 11:02 AM [facility] Basophil % 0.2 0.0 - 1.5 % 04/08/2025 11:02 AM [facility] Immature Grans % 0.5 0.0 - 0.5 % 04/08/2025 11:02 AM [facility] Neutrophils, Absolute 8.57(H) 1.70 - 7.00 10*3/mm3 04/08/2025 11:02 AM [facility] Lymphocytes, Absolute 0.94 0.70 - 3.10 10*3/mm3 04/08/2025 11:02 AM [facility] Monocytes, Absolute 0.46 0.10 - 0.90 10*3/mm3 04/08/2025 11:02 AM [facility] Eosinophils, Absolute 0.03 0.00 - 0.40 10*3/mm3 04/08/2025 11:02 AM [facility] Basophils, Absolute 0.02 0.00 - 0.20 10*3/mm3 04/08/2025 11:02 AM [facility] Immature Grans, Absolute 0.05 0.00 - 0.05 10*3/mm3 04/08/2025 11:02 AM EDT [facility] nRBC 0.0 0.0 - 0.2 /100 WBC 04/08/2025 11:02 AM EDT [facility] Blood Venipuncture / Unknown 04/08/2025 8:41 AM EDT 04/08/2025 9:10 AM EDT Una Perla PharmD LAB BLOOD ORDERABLES Final R esult [facility]
[address] [place] [address], * (ABNORMAL) Basic Metabolic Panel (04/08/2025 8:41 AM EDT) Glucose 125(H) 65 - 99 mg/dL 04/08/2025 9:51 AM EDT [facility] BUN 13.2 6.0 - 20.0 mg/dL 04/08/2025 9:51 AM EDT [facility] Creatinine 0.69(L) 0.76 - 1.27 mg/dL 04/08/2025 9:51 AM EDT [facility] Sodium 136 136 - 145 mmol/L 04/08/2025 9:51 AM EDT [facility] Potassium 4.6 3.5 - 5.2 mmol/L 04/08/2025 9:51 AM EDT [facility] Chloride 102 98 - 107 mmol/L 04/08/2025 9:51 AM EDT [facility] CO2 23.5 22.0 - 29.0 mmol/L 04/08/2025 9:51 AM EDT [facility] Calcium 8.4(L) 8.6 - 10.5 mg/dL 04/08/2025 9:51 AM EDT [facility] BUN/Creatinine Ratio 19.1 7.0 - 25.0 04/08/2025 9:51 AM EDT [facility] Anion Gap 10.5 5.0 - 15.0 mmol/L 04/08/2025 9:51 AM EDT [facility] eGFR 117.0 >60.0 mL/min/1.7 3 04/08/2025 9:51 AM EDT [facility] Blood Venipuncture / Unknown 04/08/2025 8:41 AM EDT 04/08/2025 9:09 AM EDT Narrative [facility] - 04/08/2025 9:51 [...] ORDERABLES Fi nal Result Performing Organization Address City/[facility]/ZIP Co de Phone Number [facility]
[address] [place] [address], * Heparin Anti-Xa (04/08/2025 8:41 AM EDT) Heparin Anti-Xa ([facility]) 0.33 0.30 - 0.70 IU/ml 04/08/2025 9:40 AM EDT [facility] Blood Venipuncture / Unknown 04/08/2025 8:41 AM EDT 04/08/2025 9:10 AM EDT us Suhsil Dean Jr., MD LAB BLOOD ORDERABLES Fi nal Result [facility]
[address] [place] [address], * FL C Arm During Surgery (04/07/2025 9:32 PM EDT) Narrative SYSTEMGENERATED, DOCUMENTATION - 04/07/2025 9:38 PM EDT This procedure was auto-finalized with no dictation required. us Sushil Dean Jr., MD IMG FLUOROSCOPY ORDERAB LES Final Result * Wound Culture - Swab, Leg, Right (04/07/2025 9:14 PM EDT) Wound Culture No growth at 3 days ALIZA 04/11/2025 10:40 AM EDT [facility] Gram Stain Occasional WBCs seen 04/11/2025 10:40 AM EDT [facility] Gram Stain No organisms seen 04/11/2025 10:40 AM EDT [facility] Swab Structure of right lower limb / Unknown Collection / Unknown 04/07/2025 9:14 PM EDT 04/08/2025 4:36 AM EDT us Sushil Dean Jr., MD MICROBIOLOGY - GENERAL ORDERABLES Final Result Performing Organization Address City/[facility]/ZIP Co de Phone Number [facility]
[address] [place] [address], [facility]
[address] [place] [address], * Anaerobic Culture - Swab, Leg, Right (04/07/2025 9:14 PM EDT) Anaerobic Culture No anaerobes isolated at 5 days ALIZA 04/13/2025 7:21 AM EDT [facility] Swab Structure of right lower limb / Unknown Collection / Unknown 04/07/2025 9:14 PM EDT 04/08/2025 4:36 AM EDT us Sushil Dean Jr., MD MICROBIOLOGY - GENERAL ORDERABLES Final Result [facility]
[address] [place] [address], * Anaerobic Culture - Tissue, Leg (04/07/2025 9:13 PM EDT) Pathologist [facility] Anaerobic Culture No anaerobes isolated at 5 days ALIZA 04/13/2025 7:21 AM EDT [facility] Tissue Lower limb structure / Unknown Collection / Unknown 04/07/2025 9:13 PM EDT 04/08/2025 4:54 AM EDT Jason Álvarez DO MICROBIOLOGY - GENERAL ORDERABLE S Final Result [facility]
[address] [place] [address], * Tissue / Bone Culture - Tissue, Leg, Right (04/07/2025 9:13 PM EDT) [facility] Tissue Culture No growth at 3 days ALIZA 04/11/2025 10:36 AM EDT [facility] Gram Stain Rare (1+) WBCs seen 04/11/2025 10:36 AM EDT [facility] Gram Stain No organisms seen 04/11/2025 10:36 AM EDT [facility] Tissue Structure of right lower limb / Unknown 04/07/2025 9:13 PM EDT 04/08/2025 4:54 AM EDT Sushil Dean Jr., MD MICROBIOLOGY - GENERAL ORDERABLES Final Result [facility]
[address] [place] [address], [facility]
[address] [place] [address], * (ABNORMAL) Wound Culture - Swab, Leg, Right (04/07/2025 9:07 PM EDT) Pathologist [facility] Wound Culture Light growth (2+) Staphylococcus aureus, MRSA(A) ALIZA 04/10/2025 10:38 AM EDT [facility] Comment: Methicillin resistant Staphylococcus aureus, Patient may be an isolation risk. Gram Stain Few (2+) WBCs seen 04/10/2025 10:38 AM EDT [facility] Gram Stain No organisms seen 10:38 AM EDT [facility] MD MICROBIOLOGY - GENERAL ORDERABLES Final Result [facility]
[address] [place] [address], [place] [phone] [facility]
[address] [place] [address], [place] [phone] * Anaerobic Culture - Swab, Leg, Right (04/07/2025 9:07 PM EDT) Anaerobic Culture No anaerobes isolated at 5 days ALIZA 04/13/2025 7:21 AM EDT [facility] Swab Structure of right lower limb / Unknown Collection / Unknown 04/07/2025 9:07 PM EDT 04/08/2025 4:36 AM EDT us Sushil Dean Jr., MD MICROBIOLOGY - GENERAL ORDERABLES Final Result [facility]
[address] [place] [address], * Heparin Anti-Xa (04/07/2025 9:10 AM EDT) [facility] Heparin Anti-Xa (UFH) 0.30 0.30 - 0.70 IU/ml 04/07/2025 10:12 AM EDT [facility] Blood Venipuncture / Unknown 04/07/2025 9:10 AM EDT 04/07/2025 9:38 AM EDT Una Perla PharmD LAB BLOOD ORDERABLES Final R esult [facility]
[address] [place] [address], * (ABNORMAL) CBC Auto Differential (04/07/2025 9:10 AM EDT) [facility] WBC 8.63 3.40 - 10.80 10*3/mm3 04/07/2025 9:50 AM EDT [facility] RBC 5.23 4.14 - 5.80 10*6/mm3 04/07/2025 9:50 AM EDT [facility] Hemoglobin 14.7 13.0 - 17.7 g/dL 04/07/2025 9:50 AM EDT [facility] Hematocrit 44.8 37.5 - 51.0 % 04/07/2025 9:50 AM EDT [facility] MCV 85.7 79.0 - 97.0 fL 04/07/2025 9:50 AM EDT [facility] MCH 28.1 26.6 - 33.0 pg 04/07/2025 9:50 AM EDT [facility] MCHC 32.8 31.5 - 35.7 g/dL 04/07/2025 9:50 AM EDT [facility] RDW 12.8 12.3 - 15.4 % 04/07/2025 9:50 AM [facility] RDW-SD 39.9 37.0 - 54.0 fl 04/07/2025 9:50 AM [facility] MPV 10.8 6.0 - 12.0 fL 04/07/2025 9:50 AM [facility] Platelets 149 140 - 450 10*3/mm3 04/07/2025 9:50 AM [facility] Neutrophil % 66.7 42.7 - 76.0 % 04/07/2025 9:50 AM [facility] Lymphocyte % 20.5 19.6 - 45.3 % 04/07/2025 9:50 AM [facility] Monocyte % 9.8 5.0 - 12.0 % 04/07/2025 9:50 AM [facility] Eosinophil % 2.1 0.3 - 6.2 % 04/07/2025 9:50 AM [facility] Basophil % 0.3 0.0 - 1.5 % 04/07/2025 9:50 AM [facility] Immature Grans % 0.6(H) 0.0 - 0.5 % 04/07/2025 9:50 AM [facility] Neutrophils, Absolute 5.75 1.70 - 7.00 10*3/mm3 04/07/2025 9:50 AM [facility] Lymphocytes, Absolute 1.77 0.70 - 3.10 10*3/mm3 04/07/2025 9:50 AM [facility] Monocytes, Absolute 0.85 0.10 - 0.90 10*3/mm3 04/07/2025 9:50 AM [facility] Eosinophils, Absolute 0.18 0.00 - 0.40 10*3/mm3 04/07/2025 9:50 AM [facility] Basophils, Absolute 0.03 0.00 - 0.20 10*3/mm3 04/07/2025 9:50 AM [facility] Immature Grans, Absolute 0.05 0.00 - 0.05 10*3/mm3 04/07/2025 9:50 AM EDT [facility] nRBC 0.0 0.0 - 0.2 /100 WBC 04/07/2025 9:50 AM EDT [facility] Blood Venipuncture / Unknown 04/07/2025 9:10 AM EDT 04/07/2025 9:38 AM EDT Jasonalfonso Álvarez LAB BLOOD ORDERABLES Final Resul t [facility]
[address] [place] [address], * (ABNORMAL) Basic Metabolic Panel (04/07/2025 9:10 AM EDT) Glucose 112(H) 65 - 99 mg/dL 04/07/2025 10:19 AM EDT [facility] BUN 13.1 6.0 - 20.0 mg/dL 04/07/2025 10:19 AM EDT [facility] Creatinine 0.77 0.76 - 1.27 mg/dL 04/07/2025 10:19 AM EDT [facility] Sodium 139 136 - 145 mmol/L 04/07/2025 10:19 AM EDT [facility] Potassium 4.2 3.5 - 5.2 mmol/L 04/07/2025 10:19 AM EDT [facility] Comment:Specimen hemolyzed. Result may be falsely elevated. Chloride 105 98 - 107 mmol/L 04/07/2025 10:19 AM EDT [facility] CO2 24.8 22.0 - 29.0 mmol/L 04/07/2025 10:19 AM EDT [facility] Calcium 8.6 8.6 - 10.5 mg/dL 04/07/2025 10:19 AM EDT [facility] BUN/Creatinine Ratio 17.0 7.0 - 25.0 04/07/2025 10:19 AM EDT [facility] Anion Gap 9.2 5.0 - 15.0 mmol/L 04/07/2025 10:19 AM EDT [facility] eGFR 113.2 >60.0 mL/min/1.7 3 04/07/2025 10:19 AM EDT [facility] Blood Venipuncture / Unknown 04/07/2025 9:10 AM EDT 04/07/2025 9:38 AM EDT Narrative [facility] - 04/07/2025 10:19 [...] Álvarez LAB BLOOD ORDERABLES Final Resul t [facility]
[address] [place] [address], * MRI Tibia Fibula Right With & [...] [place] 04/07/2025 9:58 AM EDT Workstation ID: [id number] Narrative 04/07/2025 9:58 AM EDT MRI TIBIA [...] [place] 04/07/2025 9:58 AM EDT Workstation ID: [id number] Sushil Dean Jr., MD IM MRI ORDERABLES Mary Beth l Result * Heparin Anti-Xa (04/07/2025 1:42 AM EDT) [facility] Heparin Anti-Xa (UFH) 0.38 0.30 - 0.70 IU/ml 04/07/2025 2:14 AM EDT [facility] Blood Venipuncture / Unknown 04/07/2025 1:42 AM EDT 04/07/2025 1:54 AM EDT Chelsie Turpin [facility] LAB BLOOD ORDERABLES Final R esult [facility]
[address] [place] [address], * Heparin Anti-Xa (04/06/2025 7:16 PM EDT) [facility] Heparin Anti-Xa (UFH) 0.33 0.30 - 0.70 IU/ml 04/06/2025 7:50 PM EDT [facility] Blood Venipuncture / Unknown 04/06/2025 7:16 PM EDT 04/06/2025 7:35 PM EDT Cherri Beatty RP LAB BLOOD ORDERABLES Final Res ult Performing Organization Address City/[facility]/ZIP Co de Phone Number [facility]
[address] [place] [address], * Potassium (04/06/2025 7:16 PM EDT) Potassium 4.0 3.5 - 5.2 mmol/L 04/06/2025 7:53 PM EDT [facility] Blood Venipuncture / Unknown 04/06/2025 7:16 PM EDT 04/06/2025 7:35 PM EDT Jason Álvarez DO LAB BLOOD ORDERABLES Final Resul t Performing Organization Address [facility] de Phone Number [facility]
[address] [place] [address], * (ABNORMAL) Heparin Anti-Xa (04/06/2025 12:36 PM EDT) Heparin Anti-Xa (UFH) 0.24(L) 0.30 - 0.70 IU/ml 04/06/2025 1:23 PM EDT [facility] Blood Venipuncture / Unknown 04/06/2025 12:36 PM EDT 04/06/2025 1:07 PM EDT Una LundbergD LAB BLOOD ORDERABLES Final R esult Performing Organization Address [facility] Co de Phone Number [facility]
[address] [place] [address], * (ABNORMAL) Heparin Anti-Xa (04/06/2025 3:42 AM EDT) Heparin Anti-Xa (UFH) 0.25(L) 0.30 - 0.70 IU/ml 04/06/2025 5:30 AM EDT [facility] Blood Venipuncture / Unknown 04/06/2025 3:42 AM EDT 04/06/2025 4:59 AM EDT Chelsie Turpin [facility] LAB BLOOD ORDERABLES Final R esult [facility]
[address] [place] [address], * (ABNORMAL) Basic Metabolic Panel (04/06/2025 3:42 AM EDT) Pathologist [facility] Glucose 94 65 - 99 mg/dL 04/06/2025 5:59 AM EDT [facility] BUN 12.8 6.0 - 20.0 mg/dL 04/06/2025 5:59 AM EDT [facility] Creatinine 0.80 0.76 - 1.27 mg/dL 04/06/2025 5:59 AM EDT [facility] Sodium 138 136 - 145 mmol/L 04/06/2025 5:59 AM EDT [facility] Potassium 3.6 3.5 - 5.2 mmol/L 04/06/2025 5:59 AM EDT [facility] Chloride 103 98 - 107 mmol/L 04/06/2025 5:59 AM EDT [facility] CO2 24.2 22.0 - 29.0 mmol/L 04/06/2025 5:59 AM EDT [facility] Calcium 8.0(L) 8.6 - 10.5 mg/dL 04/06/2025 5:59 AM EDT [facility] BUN/Creatinine Ratio 16.0 7.0 - 25.0 04/06/2025 5:59 AM EDT [facility] Anion Gap 10.8 5.0 - 15.0 mmol/L 04/06/2025 5:59 AM EDT [facility] eGFR 111.9 >60.0 mL/min/1.7 3 04/06/2025 5:59 AM EDT [facility] Blood Venipuncture / Unknown 04/06/2025 3:42 AM EDT 04/06/2025 5:20 AM EDT [facility] - 04/06/2025 5:59 AM EDT [...] DO LAB BLOOD ORDERABLES Final Resul t [facility]
[address] [place] [address], * (ABNORMAL) CBC Auto Differential (04/06/2025 3:41 AM EDT) WBC 10.86(H) 3.40 - 10.80 10*3/mm3 04/06/2025 5:04 AM EDT [facility] RBC 5.08 4.14 - 5.80 10*6/mm3 04/06/2025 5:04 AM EDT [facility] Hemoglobin 13.9 13.0 - 17.7 g/dL 04/06/2025 5:04 AM EDT [facility] Hematocrit 43.7 37.5 - 51.0 % 04/06/2025 5:04 AM EDT [facility] MCV 86.0 79.0 - 97.0 fL 04/06/2025 5:04 AM [facility] MCH 27.4 26.6 - 33.0 pg 04/06/2025 5:04 AM [facility] MCHC 31.8 31.5 - 35.7 g/dL 04/06/2025 5:04 AM [facility] RDW 12.8 12.3 - 15.4 % 04/06/2025 5:04 AM [facility] RDW-SD 40.0 37.0 - 54.0 fl 04/06/2025 5:04 AM [facility] MPV 11.7 6.0 - 12.0 fL 04/06/2025 5:04 AM [facility] Platelets 115(L) 140 - 450 10*3/mm3 04/06/2025 5:04 AM [facility] Neutrophil % 65.3 42.7 - 76.0 % 04/06/2025 5:04 AM [facility] Lymphocyte % 20.5 19.6 - 45.3 % 04/06/2025 5:04 AM [facility] Monocyte % 11.8 5.0 - 12.0 % 04/06/2025 5:04 AM [facility] Eosinophil % 1.8 0.3 - 6.2 % 04/06/2025 5:04 AM [facility] Basophil % 0.3 0.0 - 1.5 % 04/06/2025 5:04 AM [facility] Immature Grans % 0.3 0.0 - 0.5 % 04/06/2025 5:04 AM [facility] Neutrophils, Absolute 7.09(H) 1.70 - 7.00 10*3/mm3 04/06/2025 5:04 AM [facility] Lymphocytes, Absolute 2.23 0.70 - 3.10 10*3/mm3 04/06/2025 5:04 AM [facility] Monocytes, Absolute 1.28(H) 0.10 - 0.90 10*3/mm3 04/06/2025 5:04 AM EDT [facility] Eosinophils, Absolute 0.20 0.00 - 0.40 10*3/mm3 04/06/2025 5:04 AM EDT [facility] Basophils, Absolute 0.03 0.00 - 0.20 10*3/mm3 04/06/2025 5:04 AM EDT [facility] Immature Grans, Absolute 0.03 0.00 - 0.05 10*3/mm3 04/06/2025 5:04 AM EDT [facility] nRBC 0.0 0.0 - 0.2 /100 WBC 04/06/2025 5:04 AM EDT [facility] Blood Venipuncture / Unknown 04/06/2025 3:41 AM EDT 04/06/2025 4:58 AM EDT Jason Álvarez DO LAB BLOOD ORDERABLES Final Resul t Performing Organization Address City/[facility]/ZIP Co de Phone Number [facility]
[address] [place] [address], [place] [phone] * Heparin Anti-Xa (04/05/2025 8:43 PM EDT) [facility] Heparin Anti-Xa (UFH) 0.38 0.30 - 0.70 IU/ml 04/05/2025 9:09 PM EDT [facility] Blood Venipuncture / Unknown 04/05/2025 8:43 PM EDT 04/05/2025 8:55 PM EDT us Cherri Beatty [facility] LAB BLOOD ORDERABLES Final Res ult Performing Organization Address City/[facility]/ZIP Co de Phone Number [facility]
[address] [place] [address], [place] [phone] * CK (04/05/2025 12:15 PM EDT) Pathologist [facility] Creatine Kinase 140 20 - 200 U/L 04/05/2025 1:31 PM EDT [facility] Blood Venipuncture / Unknown 04/05/2025 12:15 PM EDT 04/05/2025 1:03 PM EDT Carlton Mead MD LAB BLOOD ORDERABLES Final R esult Performing Organization Address City/[facility]/ZIP Co de Phone Number [facility]
[address] [place] [address], * (ABNORMAL) Heparin Anti-Xa (04/05/2025 12:15 PM EDT) Heparin Anti-Xa (UFH) 0.17(L) 0.30 - 0.70 IU/ml 04/05/2025 1:21 PM EDT [facility] Blood Venipuncture / Unknown 04/05/2025 12:15 PM EDT 04/05/2025 1:04 PM EDT Una Perla PharmD LAB BLOOD ORDERABLES Final R esult [facility]
[address] [place] [address], * (ABNORMAL) aPTT (04/05/2025 3:54 AM EDT) PTT 35.3(L) 60.0 - 90.0 seconds 04/05/2025 4:31 AM EDT [facility] Blood Venipuncture / Unknown 04/05/2025 3:54 AM EDT 04/05/2025 4:15 AM EDT Narrative [facility] - 04/05/2025 4:31 AM EDT PTT = The equivalent PTT values for the therapeutic range of heparin levels at 0.3 to 0.5 U/ml are 60 to 70 seconds. Una Perla PharmD LAB BLOOD ORDERABLES Final R esult [facility]
[address] [place] [address], * Heparin Anti-Xa (04/05/2025 3:54 AM EDT) Pathologist [facility] Heparin Anti-Xa (UFH) 0.30 0.30 - 0.70 IU/ml 04/05/2025 4:32 AM EDT [facility] Blood Venipuncture / Unknown 04/05/2025 3:54 AM EDT 04/05/2025 4:15 AM EDT Una BodyGuardzD LAB BLOOD ORDERABLES Final R esult Performing Organization Address City/[facility]/ZIP Co de Phone Number [facility]
[address] [place] [address], * (ABNORMAL) CBC Auto Differential (04/05/2025 3:54 AM EDT) Pathologist [facility] WBC 11.18(H) 3.40 - 10.80 10*3/mm3 04/05/2025 4:20 AM EDT [facility] RBC 5.00 4.14 - 5.80 10*6/mm3 04/05/2025 4:20 AM EDT [facility] Hemoglobin 13.9 13.0 - 17.7 g/dL 04/05/2025 4:20 AM EDT [facility] Hematocrit 42.4 37.5 - 51.0 % 04/05/2025 4:20 AM EDT [facility] MCV 84.8 79.0 - 97.0 fL 04/05/2025 4:20 AM EDT [facility] MCH 27.8 26.6 - 33.0 pg 04/05/2025 4:20 AM EDT [facility] MCHC 32.8 31.5 - 35.7 g/dL 04/05/2025 4:20 AM [facility] RDW 12.9 12.3 - 15.4 % 04/05/2025 4:20 AM [facility] RDW-SD 39.7 37.0 - 54.0 fl 04/05/2025 4:20 AM [facility] MPV 10.2 6.0 - 12.0 fL 04/05/2025 4:20 AM [facility] Platelets 160 140 - 450 10*3/mm3 04/05/2025 4:20 AM [facility] Neutrophil % 73.5 42.7 - 76.0 % 04/05/2025 4:20 AM [facility] Lymphocyte % 14.0(L) 19.6 - 45.3 % 04/05/2025 4:20 AM [facility] Monocyte % 11.0 5.0 - 12.0 % 04/05/2025 4:20 AM [facility] Eosinophil % 0.8 0.3 - 6.2 % 04/05/2025 4:20 AM [facility] Basophil % 0.3 0.0 - 1.5 % 04/05/2025 4:20 AM [facility] Immature Grans % 0.4 0.0 - 0.5 % 04/05/2025 4:20 AM [facility] Neutrophils, Absolute 8.23(H) 1.70 - 7.00 10*3/mm3 04/05/2025 4:20 AM [facility] Lymphocytes, Absolute 1.56 0.70 - 3.10 10*3/mm3 04/05/2025 4:20 AM [facility] Monocytes, Absolute 1.23(H) 0.10 - 0.90 10*3/mm3 04/05/2025 4:20 AM [facility] Eosinophils, Absolute 0.09 0.00 - 0.40 10*3/mm3 04/05/2025 4:20 AM [facility] Basophils, Absolute 0.03 0.00 - 0.20 10*3/mm3 04/05/2025 4:20 AM EDT [facility] Immature Grans, Absolute 0.04 0.00 - 0.05 10*3/mm3 04/05/2025 4:20 AM EDT [facility] nRBC 0.0 0.0 - 0.2 /100 WBC 04/05/2025 4:20 AM EDT [facility] Blood Venipuncture / Unknown 04/05/2025 3:54 AM EDT 04/05/2025 4:16 AM EDT Una Perla PharmD LAB BLOOD ORDERABLES Final R esult [facility]
[address] [place] [address], * (ABNORMAL) Basic Metabolic Panel (04/05/2025 3:54 AM EDT) Glucose 152(H) 65 - 99 mg/dL 04/05/2025 4:40 AM EDT [facility] BUN 17.3 6.0 - 20.0 mg/dL 04/05/2025 4:40 AM EDT [facility] Creatinine 0.92 0.76 - 1.27 mg/dL 04/05/2025 4:40 AM EDT [facility] Sodium 136 136 - 145 mmol/L 04/05/2025 4:40 AM EDT [facility] Potassium 3.9 3.5 - 5.2 mmol/L 04/05/2025 4:40 AM EDT [facility] Chloride 103 98 - 107 mmol/L 04/05/2025 4:40 AM EDT [facility] CO2 24.0 22.0 - 29.0 mmol/L 04/05/2025 4:40 AM EDT [facility] Calcium 7.8(L) 8.6 - 10.5 mg/dL 04/05/2025 4:40 AM EDT [facility] BUN/Creatinine Ratio 18.8 7.0 - 25.0 04/05/2025 4:40 AM EDT [facility] Anion Gap 9.0 5.0 - 15.0 mmol/L 04/05/2025 4:40 AM EDT [facility] eGFR 105.2 >60.0 mL/min/1.7 3 04/05/2025 4:40 AM EDT [facility] Blood Venipuncture / Unknown 04/05/2025 3:54 AM EDT 04/05/2025 4:15 AM EDT [facility] - 04/05/2025 4:40 AM [...] MD LAB BLOOD ORDERABLES Final Re sult [facility]
[address] [place] [address], * (ABNORMAL) aPTT (04/05/2025 12:18 AM EDT) PTT 33.6(L) 60.0 - 90.0 seconds 04/05/2025 12:53 AM EDT [facility] Blood Venipuncture / Unknown 04/05/2025 12:18 AM EDT 04/05/2025 12:37 AM EDT [facility] - 04/05/2025 12:53 AM EDT PTT = The equivalent PTT values for the therapeutic range of heparin levels at 0.3 to 0.5 U/ml are 60 to 70 seconds. Tag & See PharmD LAB BLOOD ORDERABLES Final R esult Performing Organization Address City/[facility]/ZIP Co de Phone Number [facility]
[address] [place] [address], * (ABNORMAL) Protime-INR (04/05/2025 12:18 AM EDT) Protime 15.9(H) 12.2 - 15.3 Seconds 04/05/2025 12:53 AM EDT [facility] INR 1.19(H) 0.89 - 1.12 04/05/2025 12:53 AM EDT [facility] Blood Venipuncture / Unknown 04/05/2025 12:18 AM EDT 04/05/2025 12:37 AM EDT Tag & See PharmD LAB BLOOD ORDERABLES Final R esult Performing Organization Address [facility] Co de Phone Number [facility]
[address] [place] [address], * Heparin Anti-Xa (04/05/2025 12:18 AM EDT) Pathologist [facility] Heparin Anti-Xa (UFH) 0.39 0.30 - 0.70 IU/ml 04/05/2025 12:54 AM EDT [facility] Blood Venipuncture / Unknown 04/05/2025 12:18 AM EDT 04/05/2025 12:37 AM EDT Tag & See PharmD LAB BLOOD ORDERABLES Final R esult Performing Organization Address City/[facility]/ZIP Co de Phone Number [facility]
[address] [place] [address], * MRI Tibia Fibula Right With & [...] MD 04/04/2025 11:00 PM EDT Workstation ID: [id number] Narrative 04/04/2025 11:00 PM EDT MRI TIBIA [...] MD 04/04/2025 11:00 PM EDT Workstation ID: [id number] Leonora Shepherd MD IMG MRI ORDERABLES Final Resu lt * POC Creatinine (04/04/2025 2:49 PM EDT) Creatinine 1.10 0.60 - 1.30 mg/dL 04/07/2025 7:14 PM EDT [facility] Comment:Serial Number: [id number]: [id number] Venous Blood 04/04/2025 2:49 PM EDT 04/07/2025 7:14 PM EDT Jason Álvarez DO POINT OF CARE TEST ORDERABLES Fi nal Result [facility]
[address] [place] [address], * (ABNORMAL) CBC Auto Differential (04/04/2025 2:47 PM EDT) [facility] WBC 12.72(H) 3.40 - 10.80 10*3/mm3 04/04/2025 2:56 PM EDT [facility] RBC 5.64 4.14 - 5.80 10*6/mm3 04/04/2025 2:56 PM EDT [facility] Hemoglobin 15.3 13.0 - 17.7 g/dL 04/04/2025 2:56 PM EDT [facility] Hematocrit 47.9 37.5 - 51.0 % 04/04/2025 2:56 PM EDT [facility] MCV 84.9 79.0 - 97.0 fL 04/04/2025 2:56 PM EDT [facility] MCH 27.1 26.6 - 33.0 pg 04/04/2025 2:56 PM EDT [facility] MCHC 31.9 31.5 - 35.7 g/dL 04/04/2025 2:56 PM EDT [facility] RDW 13.1 12.3 - 15.4 % 04/04/2025 2:56 PM EDT [facility] RDW-SD 40.3 37.0 - 54.0 fl 04/04/2025 2:56 PM EDT [facility] MPV 9.4 6.0 - 12.0 fL 04/04/2025 2:56 PM EDT [facility] Platelets 232 140 - 450 10*3/mm3 04/04/2025 2:56 PM EDT [facility] Neutrophil % 74.9 42.7 - 76.0 % 04/04/2025 2:56 PM EDT [facility] Lymphocyte % 13.1(L) 19.6 - 45.3 % 04/04/2025 2:56 PM EDT [facility] Monocyte % 11.2 5.0 - 12.0 % 04/04/2025 2:56 PM EDT [facility] Eosinophil % 0.4 0.3 - 6.2 % 04/04/2025 2:56 PM EDT [facility] Basophil % 0.2 0.0 - 1.5 % 04/04/2025 2:56 PM EDT [facility] Immature Grans % 0.2 0.0 - 0.5 % 04/04/2025 2:56 PM EDT [facility] Neutrophils, Absolute 9.52(H) 1.70 - 7.00 10*3/mm3 04/04/2025 2:56 PM EDT [facility] Lymphocytes, Absolute 1.66 0.70 - 3.10 10*3/mm3 04/04/2025 2:56 PM EDT [facility] Monocytes, Absolute 1.43(H) 0.10 - 0.90 10*3/mm3 04/04/2025 2:56 PM EDT [facility] Eosinophils, Absolute 0.05 0.00 - 0.40 10*3/mm3 04/04/2025 2:56 PM EDT [facility] [facility] Basophils, Absolute 0.03 0.00 - 0.20 10*3/mm3 04/04/2025 2:56 PM EDT [facility] Immature Grans, Absolute 0.03 0.00 - 0.05 10*3/mm3 04/04/2025 2:56 PM EDT [facility] nRBC 0.0 0.0 - 0.2 /100 WBC 04/04/2025 2:56 PM EDT [facility] Blood Venipuncture / Unknown 04/04/2025 2:47 PM EDT 04/04/2025 2:52 PM EDT us Mario Crowley DO LAB BLOOD ORDERABLES Fin al Result [facility]
[address] [place] [address], * (ABNORMAL) C-reactive Protein (04/04/2025 2:47 PM EDT) C-Reactive Protein 8.57(H) 0.00 - 0.50 mg/dL 04/04/2025 3:26 PM EDT [facility] Blood Venipuncture / Unknown 04/04/2025 2:47 PM EDT 04/04/2025 2:52 PM EDT [facility] Fin al Result Performing Organization Address City/[facility]/ZIP Co de Phone Number [facility]
[address] [place] [address], * (ABNORMAL) Sedimentation Rate (04/04/2025 2:47 PM EDT) Pathologist [facility] Sed Rate 51(H) 0 - 15 mm/hr 04/04/2025 3:06 PM EDT [facility] Blood Venipuncture / Unknown 04/04/2025 2:47 PM EDT 04/04/2025 2:52 PM EDT [facility] BLOOD ORDERABLES Fin al Result Performing Organization Address City/[facility] Co de Phone Number [facility]
[address] [place] [address], * Comprehensive Metabolic Panel (04/04/2025 2:47 PM EDT) Pathologist [facility] Glucose 90 65 - 99 mg/dL 04/04/2025 3:26 PM EDT [facility] BUN 18.3 6.0 - 20.0 mg/dL 04/04/2025 3:26 PM EDT [facility] Creatinine 0.94 0.76 - 1.27 mg/dL 04/04/2025 3:26 PM EDT [facility] Sodium 136 136 - 145 mmol/L 04/04/2025 3:26 PM EDT [facility] Potassium 3.8 3.5 - 5.2 mmol/L 04/04/2025 3:26 PM EDT [facility] Chloride 100 98 - 107 mmol/L 04/04/2025 3:26 PM EDT [facility] CO2 25.3 22.0 - 29.0 mmol/L 04/04/2025 3:26 PM EDT [facility] Calcium 8.6 8.6 - 10.5 mg/dL 04/04/2025 3:26 PM T [facility] Total Protein 7.3 6.0 - 8.5 g/dL 04/04/2025 3:26 PM EDT [facility] Albumin 4.1 3.5 - 5.2 g/dL 04/04/2025 3:26 PM T [facility] ALT (SGPT) 26 1 - 41 U/L 04/04/2025 3:26 PM [facility] AST (SGOT) 25 1 - 40 U/L 04/04/2025 3:26 PM T [facility] Alkaline Phosphatase 106 39 - 117 U/L 04/04/2025 3:26 PM T [facility] Total Bilirubin 1.0 0.0 - 1.2 mg/dL 04/04/2025 3:26 PM T [facility] Globulin 3.2 gm/dL 04/04/2025 3:26 PM [facility] Comment:Calculated Result A/G Ratio 1.3 g/dL 04/04/2025 3:26 PM [facility] BUN/Creatinine Ratio 19.5 7.0 - 25.0 04/04/2025 3:26 PM [facility] Anion Gap 10.7 5.0 - 15.0 mmol/L 04/04/2025 3:26 PM [facility] eGFR 102.5 >60.0 mL/min/1.7 3 04/04/2025 3:26 PM [facility] Blood Venipuncture / Unknown 04/04/2025 2:47 PM EDT 04/04/2025 2:52 PM EDT [facility] - 04/04/2025 3:26 PM EDT [...] DO LAB BLOOD ORDERABLES Fin al Result [facility]
[address] [place] [address], documented in this encounter Visit Diagnoses Diagnosis [...] BPA Driven Protocol Open Order & Select [facility] Electrolyte Replacement Protocol Algorithm to [...] BPA Driven Protocol Open Order & [facility] Electrolyte Replacement Protocol Algorithm to [...] Salazar, KELL)1943 (Given - Provider: Anahy Marcelino, CHEMIST STEROIDS)[id number] (Canceled Entry - Provider: Anahy Marcelino CHEMIST STEROIDS - Comment: previously given) 0837 (Given - [...] Continuous Medication Order 04/09/2025 04/10/2025 04/11/2025 heparin 27235 units/250 mL (100 units/mL) in 0.45 % [...] BPA Driven Protocol Open Order & [facility] Electrolyte Replacement Protocol Algorithm to [...] documented as of this encounter Care Teams Systems Tester Relationship Specialty Start Date End Date Provider, [place] [address] PCP - General 05/09/23 documented as of this encounter
--- OUTSIDE RECORDS SUMMARY | 2025-04-07 20:36 | XMS_ITS | Encounter Summary ---
Author Organization [facility] Address [address] [place] [address] Care Team Providers Care Sample Coordinator Name Role Phone Provider, No Known Primary Care Provider Unavail able Reason for Visit * Auth/Cert Specialty Diagnoses / Procedures Referred By Bulmaro muniz Referred To Contact Diagnoses Right BKA infection Referral ID Status Reason Start Date Expiration Date Visits Re quested Visits Authorized [id number] 1 1 Encounter Details Date Type Department Care Team (Late st Contact Info) Description 04/07/2025 8:36 PM EDT Anesthesia Event [facility] OR [address] [place] [address] Luci Alonso DO [address] [place] [address] Anesthesia Record Procedure Summary Procedure Name Responsible [...] = 0.6 oz pur e alcohol) [facility] Utilities Answer Date Recorded In the past 12 months has [employer], gas, oil, or water [employer] threatened to shut off services in your [...] or training? Not on file Preferred Language Sri Lankan 04/07/2025 Sex and Gender Information Value Date [...] PACU on O2NC, breathing comfortably. Report to PRESS CUTTER at bedside. VSS. 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 ) intravenous induction Anesthetic plan, risks, benefits, and alternatives have been provided, discussed and informed consent has been obtained with: patient. Plan discussed with MECHANICAL TECH. CODE STATUS: Code Status (Patient has no [...] documented as of this encounter Care Teams Sample Coordinator Relationship Specialty Start Date End Date Provider, No Known [facility] [place] [address] PCP - General 05/09/23 documented as of this encounter
--- OUTSIDE RECORDS SUMMARY | 2025-04-08 14:45 | XMS_ITS | Encounter Summary ---
[facility] Organization [facility] Address [address] [place] [address] Care Team Providers Care Manager Audit Name Role Phone Provider, No Known Primary Care Provider Unavail able Reason for Visit * Reason Comments Leg Swelling * Auth/Cert Specialty Diagnoses / Procedures Referred By Contac t Referred To Contact Diagnoses Right BKA infection Referral ID Status Reason Start Date Expiration Date Visits Re quested Visits Authorized [id number] 1 1 Encounter Details Date Type Department Care Team (Late st Contact Info) Description 04/08/2025 2:45 PM EDT - 04/08/2025 4:04 PM EDT Surgery [facility] OR [address] [place] [address] Sushil Dean Jr., MD [address] [place] [address] [address] [id number] LEG DEBRIDEMENT AND IRRIGATION Social History Tobacco Use Types Packs/Day Years Used Date Smoking Tobacco: Never Smokeless Tobacco: Never Tobacco Cessation:Counseling Given: Not Answered Alcohol Use Standard Drinks/Week Comments Not Currently 0 (1 standard drink = 0.6 oz pur e alcohol) [facility] Utilities Answer Date Recorded In the past 12 months has [employer] electric, gas, oil, or water company threatened [...] 2:25 PM EDT Cherri Grimm RN * [place] Suicide Severity Rating Scale (Screener/Recent Self-Report) Question [...] Date/Time Wound Culture - Swab, Leg, Right [[id number]] (Abnormal) (Susceptibility) Collected: 04/07/252106 Lab Status: Final [...] Units Date/Time FL C Arm During Surgery [[id number]] Resulted: 04/07/252137 Updated: 04/07/252137 Narrative: This procedure was auto-finalized with no dictation required. MRI Tibia Fibula Right With & Without Contrast [[id number]] Collected: 04/07/25 0938 Updated: 04/07/25 1001 Narrative: [...] Buenrostro 04/07/2025 9:58 AM EDT Workstation ID: [id number] MRI Tibia Fibula Right With & Without Contrast [[id number]] Collected: 04/04/252256 Updated: 04/04/252302 Narrative: MRI TIBIA [...] represent a small area of phlegmonous change (bbnkmi84 image 10) measuring approximately 1.6 cm which [...] MD 04/04/2025 11:00 PM EDT Workstation ID: [id number] Pending Labs Order Current Status Fungus Culture [...] Male) Date of 1980 Social Security Number [id number] [place] [address] [place] [address] Yazidi Unknown Marital Status Unknown Admission Date 04/04/2025 Admission Type Emergency Admitting Provider Jadyn Richardson DO Attending Provider Jadyn Richardson DO Department, Room/Bed [facility] 5G, S565/1 Discharge Date [...] Group [place] [id number] Payor Plan Address Payor Plan Phone Number Payor Plan Fax Number Effective Dates [employer] [address] [address] 08/10/2023 - None Entered [facility] [address] Subscriber Name Subscriber Date Member ID WON DENNIS 1980 [id number] Emergency Contacts Major Case Detective (Rel.) Home Phone Work Phone Mobile Phone Avril Dennis (Spouse) -- -- [phone] Robert Hackett (Relative) -- -- [phone] [facility] 5G [address] [facility] [address] Patient: ROOM: [facility] Won Dennis [address] [place] [address] : 1980 SSN: [id number] Sex: M PCP: Provider, No Known Emergency Contact Information Name Relation Home Work Mobile Avril Dennis Spouse [phone] Other Contacts Name Relation Home Work Mobile Robert Hackett Relative [phone] INSURANCE PAYOR PLAN GROUP # SUBSCRIBER ID Primary: Secondary: MEDICARE [employer] [id number] Admitting Diagnosis: Right BKA infection [T87.43] Order Date: Apr 09, 2025 Case Management Marine Scientist Consult (Order ID: [id number]) Diagnosis: Priority: Routine Expected Date: Expiration Date: Interval: Once Count: Comments: Outpatient orders: 1. Outpatient intravenous antibiotic therapy: Daptomycin 800 mg IV daily to be supplied by [facility] 2. Home health to perform [...] INFECTIOUS DISEASE Progress Note Won Dennis 1980 [id number] Date of Consult: 04/10/2025 Admission Date: 04/04/2025 [...] him to seek treatment at [facility]. He is known to Dr. Dean. He [...] HDS, on Heparin gtt. Currently [facility] has been asked to manage the [...] Jr., MD, 20 mg at 04/09/25906 heparin 11468 units/250 mL (100 units/mL) in 0.45 % [...] Units Date/Time FL C Arm During Surgery [[id number]] Resulted: 04/07/252137 Updated: 04/07/252137 Narrative: This procedure was auto-finalized with no dictation required. MRI Tibia Fibula Right With & Without Contrast [[id number]] Collected: 04/07/2538 Updated: 04/07/25 1001 Narrative: MRI [...] Buenrostro 04/07/2025 9:58 AM EDT Workstation ID: [id number] Impression: Recurrent Right BKA stump abscess/cellulitis- this [...] his disposition with the pharmacist at [facility] today. I will sign off Outpatient orders: 1. Outpatient intravenous antibiotic therapy: Daptomycin 800 mg IV daily to be supplied by [facility] 2. Home health to perform weekly [...] Time: 04/10/251323 Signed Expand All [facility] Medicine Services PROGRESS NOTE Patient Name: [...] Date/Time Wound Culture - Swab, Leg, Right [[id number]] (Abnormal) (Susceptibility) Collected: 04/07/252106 Lab Status: Final [...] Row Name 04/06/25 1143 Sit-Stand Transfer Sit-Stand [place] (Transfers) modified independence - Comment, (Sit-Stand Transfer) Pt stood from recliner. Not holding onto walker, pt able to pull his pants up while balancing on his one leg. -LM Row Name 04/06/25 1143 Gait/Stairs (Locomotion) [place] Level (Gait) modified independence - Distance in [...] Motion bilateral lower extremity ROM WFL -LM [facility] Name 04/06/25 1145 Strength Comprehensive (MMT) General Manual Muscle Testing (MMT) Assessment no strength deficits identified BLEs -LM [facility] Name 04/06/25 1145 Balance Balance [...] home at d/c. PT signing off. -LM [facility] Name 04/06/25 1146 Therapy Assessment/Plan (PT) Criteria for Skilled Interventions Met (PT) no;no problems identified which require skilled intervention -LM Therapy Frequency (PT) evaluation only -LM Predicted Duration of Therapy Intervention (PT) Eval Only -LM [facility] Name 04/06/25 1146 Vital Signs Pretreatment Heart Rate (beats/min) 86 -LM Posttreatment Heart Rate (beats/min) 96 -LM Pre SpO2 (%) 95 -LM O2 Delivery Pre Treatment room air -LM Post SpO2 (%) 96 -LM O2 Delivery Post Treatment room air -LM Pre Patient Position Sitting -LM Post Patient Position Sitting -LM [facility] Name 04/06/25 1146 Positioning and [...] = Cosigned By Initials Name Provider Type Ssuan Pugh, BRIANA Physical Therapist Zandra Roy RN Registered Nurse Physical Therapy Education Title: PT OT [employer] Therapies (Done) Topic: Physical Therapy (Done) Point: Mobility training (Done) Learning Progress Summary Patient Acceptance, E, VU,DU by at 04/06/2025 1147 Point: Precautions (Done) Learning Progress Summary Patient Acceptance, E, VU,DU by at 04/06/2025 1147 User Cabrera Initials Effective Dates Name Provider Type [facility] 01/24/25 - Susan Cavazos, PT Physical [...] Description Service Date Service Provider Modifiers Qty [id number] PT EVAL LOW COMPLEXITY 3 04/06/2025 Susan [...] mg Daily 04/05/2025 -- Route: Oral heparin 54652 units/250 mL (100 units/mL) in 0.45 % [...] Dean MD April 21 vs April 22 [facility] [address], [address] [facility], [address] Please schedule at [phone] VONDA Garcia 04/11/25 08:32 EDT Cosigned by [...] Date/Time Wound Culture - Swab, Leg, Right [[id number]] (Abnormal) (Susceptibility) Collected: 04/07/252106 Lab Status: Final [...] mg Daily 04/05/2025 -- Route: Oral heparin 12980 units/250 mL (100 units/mL) in 0.45 % [...] Dean MD April 21 vs April 22 [facility] [address] [facility], [address] [facility], [address] Please schedule at [phone] VONDA Garcia 04/10/25 09:01 EDT Cosigned by Sushil Dean Jr., MD at 04/19/2025 10:33 AM EDT Associated attestation - Sushil Dean Jr., MD - 04/19/2025 10:33 AM EDT I have reviewed this documentation and agree. * Carlton Mead MD - 04/10/2025 7:38 AM EDT Images from the original note were not included. INFECTIOUS DISEASE Progress Note Won Dennis 1980 [id number] Date of Consult: 04/10/2025 Admission Date: 04/04/2025 [...] him to seek treatment at [facility]. He is known to Dr. Dean. He [...] HDS, on Heparin gtt. Currently [facility] has been asked to manage the [...] IRRIGATION; Surgeon: Sushil Dean Jr., MD; Location: [facility] OR; Service: Orthopedics; Laterality: Right; PLACEMENT OF WOUND VAC Right 04/07/2025 Procedure: WOUND VACUUM ASSISTED CLOSURE; Surgeon: Sushil Dean Jr., MD; Location: [facility] OR; Service: Orthopedics; Laterality: Right; WOUND CLOSURE [...] Jr., MD, 20 mg at 04/09/25906 heparin 65953 units/250 mL (100 units/mL) in 0.45 % [...] Units Date/Time FL C Arm During Surgery [[id number]] Resulted: 04/07/252137 Updated: 04/07/252137 Narrative: This procedure was auto-finalized with no dictation required. MRI Tibia Fibula Right With & Without Contrast [[id number]] Collected: 04/07/25937 Updated: 04/07/25 100 Narrative: MRI [...] Buenrostro 04/07/2025 9:58 AM EDT Workstation ID: [id number] Impression: Recurrent Right BKA stump abscess/cellulitis- this [...] I discussed his complex situation with Dr. Rbuens Torres -Dr. Torres will see him in infectious disease follow-up I discussed his disposition with the pharmacist at [facility] today. I will sign off Outpatient orders: 1. Outpatient intravenous antibiotic therapy: Daptomycin 800 mg IV daily to be supplied by [facility] 2. Home health to perform weekly [...] Date/Time Wound Culture - Swab, Leg, Right [[id number]] (Abnormal) Collected: 04/07/252106 Lab Status: Preliminary result [...] mg Daily 04/05/2025 -- Route: Oral heparin 81249 units/250 mL (100 units/mL) in 0.45 % [...] in 2 weeks for incision check, radiographs [facility] [address] [facility], [address] [facility], [address] Please schedule at [phone] VONDA Garcia 04/09/25 09:18 EDT Cosigned by Sushil Dean Jr., MD at 04/19/2025 10:33 AM EDT Associated attestation - Sushil Dean Jr., MD - 04/19/2025 10:33 AM EDT I have reviewed this documentation and agree. * Carlton Mead MD - 04/09/2025 8:25 AM EDT Images from the original note were not included. INFECTIOUS DISEASE Progress Note Won Dennis 1980 [id number] Date of Consult: 04/09/2025 Admission Date: 04/04/2025 [...] him to seek treatment at [facility]. He is known to Dr. Dean. He [...] HDS, on Heparin gtt. Currently [facility] has been asked to manage the [...] CLOSURE; Surgeon: Sushil Dean Jr., MD; Location: [facility] OR; Service: Orthopedics; Laterality: Right; History reviewed. [...] MD, 20 mg at 04/08/25 0800 heparin 98754 units/250 mL (100 units/mL) in 0.45 % [...] Units Date/Time FL C Arm During Surgery [[id number]] Resulted: 04/07/252137 Updated: 04/07/252137 Narrative: This procedure was auto-finalized with no dictation required. MRI Tibia Fibula Right With & Without Contrast [[id number]] Collected: 04/07/25 0938 Updated: 04/07/25 1001 Narrative: [...] Chitra 04/07/2025 9:58 AM EDT Workstation ID: [id number] Impression: Recurrent Right BKA stump abscess/cellulitis- this [...] mg IV daily to be supplied by [facility] 2. Home health to perform [...] Buenrostro 04/07/2025 9:58 AM EDT Workstation ID: [id number] I have personally reviewed the therapy plans: [...] mg Daily 04/05/2025 -- Route: Oral heparin 57615 units/250 mL (100 units/mL) in 0.45 % [...] INFECTIOUS DISEASE Progress Note Won Dennis 1980 [id number] Date of Consult: 04/08/2025 Admission Date: 04/04/2025 [...] him to seek treatment at [facility]. He is known to Dr. Dean. He [...] HDS, on Heparin gtt. Currently [facility] has been asked to manage the [...] IRRIGATION; Surgeon: Sushil Dean Jr., MD; Location: [facility] OR; Service: Orthopedics; Laterality: Right; PLACEMENT OF WOUND VAC Right 04/07/2025 Procedure: WOUND VACUUM ASSISTED CLOSURE; Surgeon: Sushil Dean Jr., MD; Location: [facility] OR; Service: Orthopedics; Laterality: Right; History reviewed. [...] Oral, Q6H PRN, 500 mg at 04/06/25 8854 OR acetaminophen (TYLENOL) 160 MG/5ML oral solution [...] Jr., MD, 20 mg at 04/07/25950 heparin 72768 units/250 mL (100 units/mL) in 0.45 % [...] Units Date/Time FL C Arm During Surgery [[id number]] Resulted: 04/07/252137 Updated: 04/07/252137 Narrative: This procedure was auto-finalized with no dictation required. 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 (Treated by ID in [place] Dr. Harris). Dr. Torres treated him with [...] Buenrostro 04/07/2025 9:58 AM EDT Workstation ID: [id number] I have personally reviewed the therapy plans: [...] Of Support Discussed With: Patient Jason DO Pereti 04/07/25 * Larisa Hamilton, [facility] [...] INFECTIOUS DISEASE Progress Note Won Dennis 1980 [id number] Date of Consult: 04/07/2025 Admission Date: 04/04/2025 [...] him to seek treatment at [facility]. He is known to Dr. Dean. He [...] HDS, on Heparin gtt. Currently [facility] has been asked to manage the [...] MD, 20 mg at 04/06/25 0900 heparin 02347 units/250 mL (100 units/mL) in 0.45 % [...] With & Without Contrast - In process [[id number]] Resulted: 04/07/25828 Updated: 04/07/25828 This result has not been signed. Information might be incomplete. 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 (Treated by ID in [place] Dr. Harris). Dr. Torres treated him with [...] mg Daily 04/05/2025 -- Route: Oral heparin 25766 units/250 mL (100 units/mL) in 0.45 % [...] MD 04/04/2025 11:00 PM EDT Workstation ID: [id number] I have personally reviewed the therapy plans: [...] mg Daily 04/05/2025 -- Route: Oral heparin 51700 units/250 mL (100 units/mL) in 0.45 % [...] INFECTIOUS DISEASE follow up. Won Dennis 1980 [id number] Date of Consult: 04/06/2025 Admission Date: 04/04/2025 [...] him to seek treatment at [facility]. He is known to Dr. Dean. He [...] HDS, on Heparin gtt. 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 (Treated by ID in [place] Dr. Harris). Dr. Torres treated him with [...] MD 04/04/2025 11:00 PM EDT Workstation ID: [id number] I have personally reviewed the therapy plans: [...] MD 04/04/2025 11:00 PM EDT Workstation ID: [id number] Assessment & Plan Assessment & Plan Won [...] EDTAssociated Order(s): IP CONSULT TO ORTHOPEDIC SURGERY [facility], [facility] [address] [address] Orthopedic Consult Patient: Won Dennis Date of Admission: 04/04/2025 4:10 PM Date of : 1980 Attending Physician: Jason Álvarez DO Consulting Physician: Sushil Dean Jr, MD Chief Complaint: 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 male admitted to [facility] with Right BKA infection [T87.43]. He [...] was evaluated in the emergency department in [place], was discharged with instructions for follow-up. He [...] tablet by mouth Daily. 04/03/2025 Morning Lactobacillus-Inulin ([facility]est[facility]) capsule Take 200 mg by mouth [...] MD 04/04/2025 11:00 PM EDT Workstation ID: [id number] Assessment: Right BKA infection 44-year-old male with [...] DISEASE CONSULT/INITIAL HOSPITAL VISIT Won Dennis 1980 [id number] Date of Consult: 04/05/2025 Admission Date: 04/04/2025 [...] him to seek treatment at [facility]. He is known to Dr. Dean. He [...] HDS, on Heparin gtt. Currently [facility] has been asked to manage the [...] Leonora Shepherd MD, 40 mg at 04/04/25 7000 sennosides-docusate (PERICOLACE) 8.6-50 MG per tablet 2 [...] MD, 20 mg at 04/05/25 09 heparin 64670 units/250 mL (100 units/mL) in 0.45 % [...] 0.4 mg, Sublingual, Q5 Min PRN, Leonora Sehpherd MD oxybutynin XL (DITROPAN-XL) 24 hr tablet 10 mg, 10 mg, Oral, Nightly, Leonora Shepherd MD, 10 mg at 04/04/25 7873 Pharmacy to Dose Heparin, , Not Applicable, [...] Tibia Fibula Right With & Without Contrast [[id number]] Collected: 04/04/252256 Updated: 04/04/252302 Narrative: MRI TIBIA [...] represent a small area of phlegmonous change (nlzyzw10 image 10) measuring approximately 1.6 cm which [...] MD 04/04/2025 11:00 PM EDT Workstation ID: [id number] Impression: Right BKA stump cellulitis- s/p BKA with multiple surgical interventions with Known MRSA 05/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 (Treated by ID in [place] Dr. Harris). Dr. Torres treated him with [...] Jr., MD - 04/08/2025 3:51 PM EDT [facility] OPERATIVE REPORT PATIENT NAME: Won Dennis DATE OF : 1980 PREOP DIAGNOSIS: Right Right below-knee amputation infection POSTOP DIAGNOSIS: Same. PROCEDURE: Right Right 83217: Secondary closure below-knee amputation SURGEON: Sushil Dean MD OPERATIVE TEAM: Bridge Repair Crew Person: Susi Grullon RN Scrub Person: Mary Paredes Scrub Person Extra: Hortencia Toribio Other: Katt Gotti RN; Charis Neville RN ANESTHETIST: Anesthesiologist: Ulises Hoffman MD RETAIL SERVICES PROFESSIONAL: Stan Casillas CRNA Student Nurse Analysis Or Research Safety Inspector: Karol Albert SRNA ANESTHESIA: Choice ESTIMATED BLOOD [...] CULTURE (Canceled) Sushil Dean Jr., MD 04/08/25 8501 Description: RIGHT LEG DEEP WOUND FOR CULTURE [...] Jr., MD - 04/07/2025 9:03 PM EDT [facility], [place] [address] OPERATIVE REPORT PATIENT NAME: Won Dennis DATE OF : 1980 PREOP DIAGNOSIS: Right Right below knee amputation stump infection POSTOP DIAGNOSIS: Same. PROCEDURE: Right Right 36891: Incision and drainage of surgical site infection 92992: Debridement of skin, subcutaneous tissue, muscle 02666: Wound vacuum-assisted closure SURGEON: Sushil Dean MD OPERATIVE TEAM: Bridge Repair Crew Person: Anum Sanchez RN Scrub Person: Hortencia Toribio; Gerald Ivey BLANKER OPERATOR: Anesthesiologist: Luci Alonso DO ANESTHESIA: General [...] of the area. seen at [facility] yesterday for CT and US, here for [...] this chart in the absence of a banking supervisor. No orders to display RADIOLOGY: [x] [...] is discharging home with outpatient infusion at [facility]. He has an appointment with [facility] at 8:00 am tomorrow. They will do PICC line dressing changes. DEBRA has spoke with Dena at [facility] today multiple times to get setup [...] to get IV ABX at home with [facility]; however, Medicaid lapsed on 04/08. DEBRA was unaware until this morning that Medicaid has lapsed. Patient explained that he has Medicare A and B. CM spoke with KELLEE and given themhis Medicare number [id number], she sent it to Admission. DEBRA spoke with Kerri, with [facility], and explained that he had [...] changes and lab work. DEBRA called Dena [facility] Outpatient infusion center they can accept patient and start him. He is known for their facility. The Facility will need to run it through his insurance first. CM faxed the orders over to [facility] at [phone]. CM will follow up with them tomorrow at [facility] to make sure they received [...] with patient at bedside today. Wheelchair from [employer] is at bedside. Patient getting PICC line [...] family Patient/Family Anticipated Services at Transition case assemblerdigital campaign manager Anticipated family or friend will provide Discharge Needs Assessment Equipment Currently Used at Home glucometer;shower chair;pulse ox;bp cuff;prosthesis;crutches Equipment Needed After Discharge none Discharge Plan Row Name 04/07/25 1144 Plan Plan Home Patient/Family in Agreement with Plan yes Plan Comments CM spoke with patient at bedside today. Patient lives with and his 5 kids in [facility]. 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 He has walker, cane, shower chair, and crutches. He requested a wheelchair for home. CM will order wheelchair through [facility]. He is not current with home health services. PCP is Dr. Jordan. Insurance is [employer] [place]. Patient discharge plan is home [...] 3:4 0 PM EDT Right BKA infection [place] SEC ABDOMINAL WALL SUTURE EVISCERATION/DEHSN 04/08/2025 3:20 [...] - 10.80 10*3/mm3 04/11/2025 4:02 AM EDT [facility] RBC 4.70 4.14 - 5.80 10*6/mm3 04/11/2025 4:02 AM [facility] Hemoglobin 12.8(L) 13.0 - 17.7 g/dL 04/11/2025 4:02 AM [facility] Hematocrit 40.5 37.5 - 51.0 % 04/11/2025 4:02 AM [facility] MCV 86.2 79.0 - 97.0 fL 04/11/2025 4:02 AM [facility] MCH 27.2 26.6 - 33.0 pg 04/11/2025 4:02 AM [facility] MCHC 31.6 31.5 - 35.7 g/dL 04/11/2025 4:02 AM [facility] RDW 12.9 12.3 - 15.4 % 04/11/2025 4:02 AM [facility] RDW-SD 40.5 37.0 - 54.0 fl 04/11/2025 4:02 AM [facility] MPV 9.2 6.0 - 12.0 fL 04/11/2025 4:02 AM [facility] Platelets 267 140 - 450 10*3/mm3 04/11/2025 4:02 AM [facility] Neutrophil % 59.5 42.7 - 76.0 % 04/11/2025 4:02 AM [facility] Lymphocyte % 26.3 19.6 - 45.3 % 04/11/2025 4:02 AM [facility] Monocyte % 9.3 5.0 - 12.0 % 04/11/2025 4:02 AM [facility] Eosinophil % 4.1 0.3 - 6.2 % 04/11/2025 4:02 AM [facility] Basophil % 0.4 0.0 - 1.5 % 04/11/2025 4:02 AM [facility] Immature Grans % 0.4 0.0 - 0.5 % 04/11/2025 4:02 AM EDT [facility] Neutrophils, Absolute 4.69 1.70 - 7.00 10*3/mm3 04/11/2025 4:02 AM EDT [facility] Lymphocytes, Absolute 2.07 0.70 - 3.10 10*3/mm3 04/11/2025 4:02 AM EDT [facility] Monocytes, Absolute 0.73 0.10 - 0.90 10*3/mm3 04/11/2025 4:02 AM EDT [facility] Eosinophils, Absolute 0.32 0.00 - 0.40 10*3/mm3 04/11/2025 4:02 AM EDT [facility] Basophils, Absolute 0.03 0.00 - 0.20 10*3/mm3 04/11/2025 4:02 AM EDT [facility] Immature Grans, Absolute 0.03 0.00 - 0.05 10*3/mm3 04/11/2025 4:02 AM EDT [facility] nRBC 0.0 0.0 - 0.2 /100 WBC 04/11/2025 4:02 AM EDT [facility] Blood Venipuncture / Unknown 04/11/2025 3:40 AM EDT 04/11/2025 3:59 AM EDT us Sushil Dean Jr., MD LAB BLOOD ORDERABLES Fi nal Result [facility]
[address] [place] [address], * (ABNORMAL) Comprehensive Metabolic Panel (04/11/2025 3:40 AM EDT) Glucose 108(H) 65 - 99 mg/dL 04/11/2025 4:19 AM EDT [facility] BUN 12.5 6.0 - 20.0 mg/dL 04/11/2025 4:19 AM EDT [facility] Creatinine 0.68(L) 0.76 - 1.27 mg/dL 04/11/2025 4:19 AM [facility] Sodium 140 136 - 145 mmol/L 04/11/2025 4:19 AM [facility] Potassium 3.8 3.5 - 5.2 mmol/L 04/11/2025 4:19 AM [facility] Chloride 105 98 - 107 mmol/L 04/11/2025 4:19 AM [facility] CO2 28.2 22.0 - 29.0 mmol/L 04/11/2025 4:19 AM [facility] Calcium 8.2(L) 8.6 - 10.5 mg/dL 04/11/2025 4:19 AM [facility] Total Protein 6.1 6.0 - 8.5 g/dL 04/11/2025 4:19 AM [facility] Albumin 3.1(L) 3.5 - 5.2 g/dL 04/11/2025 4:19 AM [facility] ALT (SGPT) 52(H) 1 - 41 U/L 04/11/2025 4:19 AM [facility] AST (SGOT) 40 1 - 40 U/L 04/11/2025 4:19 AM [facility] Alkaline Phosphatase 99 39 - 117 U/L 04/11/2025 4:19 AM [facility] Total Bilirubin 0.2 0.0 - 1.2 mg/dL 04/11/2025 4:19 AM [facility] Globulin 3.0 gm/dL 04/11/2025 4:19 AM [facility] Comment:Calculated Result A/G Ratio 1.0 g/dL 04/11/2025 4:19 AM [facility] BUN/Creatinine Ratio 18.4 7.0 - 25.0 04/11/2025 4:19 AM [facility] Anion Gap 6.8 5.0 - 15.0 mmol/L 04/11/2025 4:19 AM [facility] eGFR 117.5 >60.0 mL/min/1.7 3 04/11/2025 4:19 AM EDT [facility] Blood Venipuncture / Unknown 04/11/2025 3:40 AM EDT 04/11/2025 3:56 AM EDT [facility] - 04/11/2025 4:19 AM EDT GFR [...] Hill APRN LAB BLOOD ORDERABLES Final Result [facility]
[address] [place] [address], * (ABNORMAL) CBC Auto Differential (04/10/2025 3:46 AM EDT) WBC 9.60 3.40 - 10.80 10*3/mm3 04/10/2025 3:56 AM EDT [facility] RBC 4.67 4.14 - 5.80 10*6/mm3 04/10/2025 3:56 AM EDT [facility] Hemoglobin 12.9(L) 13.0 - 17.7 g/dL 04/10/2025 3:56 AM EDT [facility] Hematocrit 40.1 37.5 - 51.0 % 04/10/2025 3:56 AM EDT [facility] MCV 85.9 79.0 - 97.0 fL 04/10/2025 3:56 AM EDT [facility] MCH 27.6 26.6 - 33.0 pg 04/10/2025 3:56 [facility] MCHC 32.2 31.5 - 35.7 g/dL 04/10/2025 3:56 AM EDT [facility] RDW 12.9 12.3 - 15.4 % 04/10/2025 3:56 AM [facility] RDW-SD 40.5 37.0 - 54.0 fl 04/10/2025 3:56 AM EDT [facility] MPV 9.5 6.0 - 12.0 fL 04/10/2025 3:56 AM EDT [facility] Platelets 227 140 - 450 10*3/mm3 04/10/2025 3:56 AM [facility] Neutrophil % 59.1 42.7 - 76.0 % 04/10/2025 3:56 AM [facility] Lymphocyte % 29.0 19.6 - 45.3 % 04/10/2025 3:56 AM [facility] Monocyte % 8.1 5.0 - 12.0 % 04/10/2025 3:56 AM [facility] Eosinophil % 3.2 0.3 - 6.2 % 04/10/2025 3:56 AM [facility] Basophil % 0.4 0.0 - 1.5 % 04/10/2025 3:56 AM [facility] Immature Grans % 0.2 0.0 - 0.5 % 04/10/2025 3:56 AM [facility] Neutrophils, Absolute 5.67 1.70 - 7.00 10*3/mm3 04/10/2025 3:56 AM [facility] Lymphocytes, Absolute 2.78 0.70 - 3.10 10*3/mm3 04/10/2025 3:56 AM [facility] Monocytes, Absolute 0.78 0.10 - 0.90 10*3/mm3 04/10/2025 3:56 AM [facility] Eosinophils, Absolute 0.31 0.00 - 0.40 10*3/mm3 04/10/2025 3:56 AM EDT [facility] Basophils, Absolute 0.04 0.00 - 0.20 10*3/mm3 04/10/2025 3:56 AM EDT [facility] Immature Grans, Absolute 0.02 0.00 - 0.05 10*3/mm3 04/10/2025 3:56 AM EDT [facility] nRBC 0.0 0.0 - 0.2 /100 WBC 04/10/2025 3:56 AM EDT [facility] Blood Venipuncture / Unknown 04/10/2025 3:46 AM EDT 04/10/2025 3:53 AM EDT us Jason Álvarez DO LAB BLOOD ORDERABLES Final Resul t [facility]
[address] [place] [address], * (ABNORMAL) Basic Metabolic Panel (04/10/2025 3:46 AM EDT) Glucose 125(H) 65 - 99 mg/dL 04/10/2025 4:20 AM EDT [facility] BUN 15.9 6.0 - 20.0 mg/dL 04/10/2025 4:20 AM EDT [facility] Creatinine 0.77 0.76 - 1.27 mg/dL 04/10/2025 4:20 AM EDT [facility] Sodium 137 136 - 145 mmol/L 04/10/2025 4:20 AM EDT [facility] Potassium 3.9 3.5 - 5.2 mmol/L 04/10/2025 4:20 AM EDT [facility] Chloride 102 98 - 107 mmol/L 04/10/2025 4:20 AM EDT [facility] CO2 26.9 22.0 - 29.0 mmol/L 04/10/2025 4:20 AM EDT [facility] Calcium 7.9(L) 8.6 - 10.5 mg/dL 04/10/2025 4:20 AM EDT [facility] BUN/Creatinine Ratio 20.6 7.0 - 25.0 04/10/2025 4:20 AM EDT [facility] Anion Gap 8.1 5.0 - 15.0 mmol/L 04/10/2025 4:20 AM EDT [facility] eGFR 113.2 >60.0 mL/min/1.7 3 04/10/2025 4:20 AM EDT [facility] Blood Venipuncture / Unknown 04/10/2025 3:46 AM EDT 04/10/2025 3:52 AM EDT Narrative [facility] - 04/10/2025 4:20 [...] LAB BLOOD ORDERABLES Final Resul t [facility]
[address] [place] [address], * Heparin Anti-Xa (04/10/2025 3:46 AM EDT) Heparin Anti-Xa (UFH) 0.35 0.30 - 0.70 IU/ml 04/10/2025 4:23 AM EDT [facility] Blood Venipuncture / Unknown 04/10/2025 3:46 AM EDT 04/10/2025 3:53 AM EDT Larisa Hamilton [facility] LAB BLOOD ORDERABLES Final R esult [facility]
[address] [place] [address], * Heparin Anti-Xa (04/09/2025 10:05 AM EDT) Pathologist [facility] Heparin Anti-Xa (UFH) 0.36 0.30 - 0.70 IU/ml 04/09/2025 11:12 AM EDT [facility] Blood Venipuncture / Unknown 04/09/2025 10:05 AM EDT 04/09/2025 10:47 AM EDT Larisa Hamilton [facility] LAB BLOOD ORDERABLES Final R esult [facility]
[address] [place] [address], * (ABNORMAL) CBC Auto Differential (04/09/2025 4:18 AM EDT) Pathologist [facility] WBC 11.00(H) 3.40 - 10.80 10*3/mm3 04/09/2025 4:50 AM EDT [facility] RBC 4.70 4.14 - 5.80 10*6/mm3 04/09/2025 4:50 AM EDT [facility] Hemoglobin 13.0 13.0 - 17.7 g/dL 04/09/2025 4:50 AM EDT [facility] Hematocrit 40.4 37.5 - 51.0 % 04/09/2025 4:50 AM EDT [facility] MCV 86.0 79.0 - 97.0 fL 04/09/2025 4:50 AM EDT [facility] MCH 27.7 26.6 - 33.0 pg 04/09/2025 4:50 AM EDT [facility] MCHC 32.2 31.5 - 35.7 g/dL 04/09/2025 4:50 AM EDT [facility] RDW 12.8 12.3 - 15.4 % 04/09/2025 4:50 AM [facility] RDW-SD 39.9 37.0 - 54.0 fl 04/09/2025 4:50 AM [facility] MPV 10.0 6.0 - 12.0 fL 04/09/2025 4:50 AM [facility] Platelets 211 140 - 450 10*3/mm3 04/09/2025 4:50 AM [facility] Neutrophil % 74.8 42.7 - 76.0 % 04/09/2025 4:50 AM [facility] Lymphocyte % 15.4(L) 19.6 - 45.3 % 04/09/2025 4:50 AM [facility] Monocyte % 8.5 5.0 - 12.0 % 04/09/2025 4:50 AM [facility] Eosinophil % 0.6 0.3 - 6.2 % 04/09/2025 4:50 AM [facility] Basophil % 0.4 0.0 - 1.5 % 04/09/2025 4:50 AM [facility] Immature Grans % 0.3 0.0 - 0.5 % 04/09/2025 4:50 AM [facility] Neutrophils, Absolute 8.23(H) 1.70 - 7.00 10*3/mm3 04/09/2025 4:50 AM [facility] Lymphocytes, Absolute 1.69 0.70 - 3.10 10*3/mm3 04/09/2025 4:50 AM [facility] Monocytes, Absolute 0.94(H) 0.10 - 0.90 10*3/mm3 04/09/2025 4:50 AM [facility] Eosinophils, Absolute 0.07 0.00 - 0.40 10*3/mm3 04/09/2025 4:50 AM [facility] Basophils, Absolute 0.04 0.00 - 0.20 10*3/mm3 04/09/2025 4:50 AM EDT [facility] Immature Grans, Absolute 0.03 0.00 - 0.05 10*3/mm3 04/09/2025 4:50 AM EDT [facility] nRBC 0.0 0.0 - 0.2 /100 WBC 04/09/2025 4:50 AM EDT [facility] Blood Venipuncture / Unknown 04/09/2025 4:18 AM EDT 04/09/2025 4:31 AM EDT Sushil Dean Jr., MD LAB BLOOD ORDERABLES Fi nal Result Performing Organization Address City/[facility]/ZIP Co de Phone Number [facility]
[address] [place] [address], * Heparin Anti-Xa (04/09/2025 4:18 AM EDT) Heparin Anti-Xa (UFH) 0.41 0.30 - 0.70 IU/ml 04/09/2025 4:53 AM EDT [facility] Blood Venipuncture / Unknown 04/09/2025 4:18 AM EDT 04/09/2025 4:31 AM EDT Una LundbergD LAB BLOOD ORDERABLES Final R esult [facility]
[address] [place] [address], * (ABNORMAL) Basic Metabolic Panel (04/09/2025 4:18 AM EDT) Glucose 147(H) 65 - 99 mg/dL 04/09/2025 5:33 AM EDT [facility] BUN 23.0(H) 6.0 - 20.0 mg/dL 04/09/2025 5:33 AM EDT [facility] Creatinine 1.15 0.76 - 1.27 mg/dL 04/09/2025 5:33 AM EDT [facility] Sodium 135(L) 136 - 145 mmol/L 04/09/2025 5:33 AM EDT [facility] Potassium 4.2 3.5 - 5.2 mmol/L 04/09/2025 5:33 AM EDT [facility] Chloride 100 98 - 107 mmol/L 04/09/2025 5:33 AM EDT [facility] CO2 26.0 22.0 - 29.0 mmol/L 04/09/2025 5:33 AM EDT [facility] Calcium 8.2(L) 8.6 - 10.5 mg/dL 04/09/2025 5:33 AM EDT [facility] BUN/Creatinine Ratio 20.0 7.0 - 25.0 04/09/2025 5:33 AM EDT [facility] Anion Gap 9.0 5.0 - 15.0 mmol/L 04/09/2025 5:33 AM EDT [facility] eGFR 80.5 >60.0 mL/min/1.7 3 04/09/2025 5:33 AM EDT [facility] Blood Venipuncture / Unknown 04/09/2025 4:18 AM EDT 04/09/2025 4:29 AM EDT [facility] - 04/09/2025 5:33 AM EDT GFR [...] MD LAB BLOOD ORDERABLES Fi nal Result [facility]
[address] [place] [address], * Wound Culture - Swab, Leg, Right (04/08/2025 3:40 PM EDT) Wound Culture No growth at 3 days ALIZA 04/11/2025 10:40 AM EDT [facility] Gram Stain Few (2+) WBCs seen 04/11/2025 10:40 AM EDT [facility] Gram Stain No organisms seen 04/11/2025 10:40 AM EDT [facility] Swab Structure of right lower limb / Unknown 04/08/2025 3:40 PM EDT 04/08/2025 8:05 PM EDT us Suhsil Dean Jr., MD MICROBIOLOGY - GENERAL ORDERABLES Final Result Performing Organization Address City/[facility]/ZIP Co de Phone Number [facility]
[address] [place] [address], [facility]
[address] [place] [address], * Anaerobic Culture - Swab, Leg, Right (04/08/2025 3:40 PM EDT) Anaerobic Culture No anaerobes isolated at 5 days ALIZA 04/13/2025 7:24 AM EDT [facility] Swab Structure of right lower limb / Unknown 04/08/2025 3:40 PM EDT 04/08/2025 8:05 PM EDT us Sushil Dean Jr., MD MICROBIOLOGY - GENERAL ORDERABLES Final Result Performing Organization Address City/[facility]/ZIP Co de Phone Number [facility]
[address] [place] [address], * Scan Slide (04/08/2025 8:41 AM EDT) RBC Morphology Normal Normal 04/08/2025 11:02 AM EDT [facility] WBC Morphology Normal Normal 04/08/2025 11:02 AM EDT [facility] Platelet Estimate Adequate Normal 04/08/2025 11:02 AM EDT [facility] Clumped Platelets Present None Seen 04/08/2025 11:02 AM EDT [facility] Blood Venipuncture / Unknown 04/08/2025 8:41 AM EDT 04/08/2025 9:10 AM EDT Una Minda PharmD LAB BLOOD ORDERABLES Final R esult [facility]
[address] [place] [address], * (ABNORMAL) CBC Auto Differential (04/08/2025 8:41 AM EDT) WBC 10.07 3.40 - 10.80 10*3/mm3 04/08/2025 11:02 AM EDT [facility] RBC 5.01 4.14 - 5.80 10*6/mm3 04/08/2025 11:02 AM EDT [facility] Hemoglobin 14.0 13.0 - 17.7 g/dL 04/08/2025 11:02 AM EDT [facility] Hematocrit 42.7 37.5 - 51.0 % 04/08/2025 11:02 AM EDT [facility] MCV 85.2 79.0 - 97.0 fL 04/08/2025 11:02 AM EDT [facility] MCH 27.9 26.6 - 33.0 pg 04/08/2025 11:02 AM EDT [facility] MCHC 32.8 31.5 - 35.7 g/dL 04/08/2025 11:02 AM EDT [facility] RDW 12.6 12.3 - 15.4 % 04/08/2025 11:02 AM EDT [facility] RDW-SD 38.9 37.0 - 54.0 fl 04/08/2025 11:02 AM [facility] MPV 11.0 6.0 - 12.0 fL 04/08/2025 11:02 AM [facility] Platelets 118(L) 140 - 450 10*3/mm3 04/08/2025 11:02 AM [facility] Neutrophil % 85.1(H) 42.7 - 76.0 % 04/08/2025 11:02 AM [facility] Lymphocyte % 9.3(L) 19.6 - 45.3 % 04/08/2025 11:02 AM [facility] Monocyte % 4.6(L) 5.0 - 12.0 % 04/08/2025 11:02 AM [facility] Eosinophil % 0.3 0.3 - 6.2 % 04/08/2025 11:02 AM [facility] Basophil % 0.2 0.0 - 1.5 % 04/08/2025 11:02 AM [facility] Immature Grans % 0.5 0.0 - 0.5 % 04/08/2025 11:02 AM [facility] Neutrophils, Absolute 8.57(H) 1.70 - 7.00 10*3/mm3 04/08/2025 11:02 AM [facility] Lymphocytes, Absolute 0.94 0.70 - 3.10 10*3/mm3 04/08/2025 11:02 AM [facility] Monocytes, Absolute 0.46 0.10 - 0.90 10*3/mm3 04/08/2025 11:02 AM [facility] Eosinophils, Absolute 0.03 0.00 - 0.40 10*3/mm3 04/08/2025 11:02 AM [facility] Basophils, Absolute 0.02 0.00 - 0.20 10*3/mm3 04/08/2025 11:02 AM [facility] Immature Grans, Absolute 0.05 0.00 - 0.05 10*3/mm3 04/08/2025 11:02 AM EDT [facility] nRBC 0.0 0.0 - 0.2 /100 WBC 04/08/2025 11:02 AM EDT [facility] Blood Venipuncture / Unknown 04/08/2025 8:41 AM EDT 04/08/2025 9:10 AM EDT Una Perla PharmD LAB BLOOD ORDERABLES Final R esult [facility]
[address] [place] [address], * (ABNORMAL) Basic Metabolic Panel (04/08/2025 8:41 AM EDT) Glucose 125(H) 65 - 99 mg/dL 04/08/2025 9:51 AM EDT [facility] BUN 13.2 6.0 - 20.0 mg/dL 04/08/2025 9:51 AM EDT [facility] Creatinine 0.69(L) 0.76 - 1.27 mg/dL 04/08/2025 9:51 AM EDT [facility] Sodium 136 136 - 145 mmol/L 04/08/2025 9:51 AM EDT [facility] Potassium 4.6 3.5 - 5.2 mmol/L 04/08/2025 9:51 AM EDT [facility] Chloride 102 98 - 107 mmol/L 04/08/2025 9:51 AM EDT [facility] CO2 23.5 22.0 - 29.0 mmol/L 04/08/2025 9:51 AM EDT [facility] Calcium 8.4(L) 8.6 - 10.5 mg/dL 04/08/2025 9:51 AM EDT [facility] BUN/Creatinine Ratio 19.1 7.0 - 25.0 04/08/2025 9:51 AM EDT [facility] Anion Gap 10.5 5.0 - 15.0 mmol/L 04/08/2025 9:51 AM EDT [facility] eGFR 117.0 >60.0 mL/min/1.7 3 04/08/2025 9:51 AM EDT [facility] Blood Venipuncture / Unknown 04/08/2025 8:41 AM EDT 04/08/2025 9:09 AM EDT Narrative [facility] - 04/08/2025 9:51 [...] Performing Organization Address City/[facility]/ZIP Co de Phone Number [facility]
[address] [place] [address], * Heparin Anti-Xa (04/08/2025 8:41 AM EDT) Heparin Anti-Xa ([facility]) 0.33 0.30 - 0.70 IU/ml 04/08/2025 9:40 AM EDT [facility] Blood Venipuncture / Unknown 04/08/2025 8:41 AM EDT 04/08/2025 9:10 AM EDT Sushil Dean Jr., MD LAB BLOOD ORDERABLES Fi nal Result Performing Organization Address City/[facility]/ZIP Co de Phone Number [facility]
[address] [place] [address], * [place] C Arm During Surgery (04/07/2025 9:32 PM EDT) Narrative SYSTEMGENERATED, DOCUMENTATION - 04/07/2025 9:38 PM EDT This procedure was auto-finalized with no dictation required. us Sushil Dean Jr., MD IMG FLUOROSCOPY ORDERAB LES Final Result * Wound Culture - Swab, Leg, Right (04/07/2025 9:14 PM EDT) Wound Culture No growth at 3 days ALIZA 04/11/2025 10:40 AM EDT [facility] Gram Stain Occasional WBCs seen 04/11/2025 10:40 AM EDT [facility] Gram Stain No organisms seen 04/11/2025 10:40 AM EDT [facility] Swab Structure of right lower limb / Unknown Collection / Unknown 04/07/2025 9:14 PM EDT 04/08/2025 4:36 AM EDT us Sushil Dean Jr., MD MICROBIOLOGY - GENERAL ORDERABLES Final Result Performing Organization Address City/[facility]/ZIP Co de Phone Number [facility]
[address] [place] [address], [place] [phone] [facility]
[address] [place] [address], [place] [phone] * Anaerobic Culture - Swab, Leg, Right (04/07/2025 9:14 PM EDT) Anaerobic Culture No anaerobes isolated at 5 days ALIZA 04/13/2025 7:21 AM EDT [facility] Swab Structure of right lower limb / Unknown Collection / Unknown 04/07/2025 9:14 PM EDT 04/08/2025 4:36 AM EDT us Sushil Dean Jr., MD MICROBIOLOGY - GENERAL ORDERABLES Final Result [facility]
[address] [place] [address], * Anaerobic Culture - Tissue, Leg (04/07/2025 9:13 PM EDT) Anaerobic Culture No anaerobes isolated at 5 days ALIZA 04/13/2025 7:21 AM EDT [facility] Tissue Lower limb structure / Unknown Collection / Unknown 04/07/2025 9:13 PM EDT 04/08/2025 4:54 AM EDT Jason Álvarez DO MICROBIOLOGY - GENERAL ORDERABLE S Final Result Performing Organization Address [facility]/State/ZIP Co de Phone Number [facility]
[address] [place] [address], * Tissue / Bone Culture - Tissue, Leg, Right (04/07/2025 9:13 PM EDT) Tissue Culture No growth at 3 days ALIZA 04/11/2025 10:36 AM EDT [facility] Gram Stain Rare (1+) WBCs seen 04/11/2025 10:36 AM EDT [facility] Gram Stain No organisms seen 04/11/2025 10:36 AM EDT [facility] Tissue Structure of right lower limb / Unknown 04/07/2025 9:13 PM EDT 04/08/2025 4:54 AM EDT Sushil Dean Jr., MD MICROBIOLOGY - GENERAL ORDERABLES Final Result [facility]
[address] [place] [address], [facility]
[address] [place] [address], [place] [phone] * (ABNORMAL) Wound Culture - Swab, Leg, Right (04/07/2025 9:07 PM EDT) Wound Culture Light growth (2+) Staphylococcus aureus, MRSA(A) ALIZA 04/10/2025 10:38 AM EDT [facility] Comment: Methicillin resistant Staphylococcus aureus, Patient may be an isolation risk. Gram Stain Few (2+) WBCs seen 04/10/2025 10:38 AM EDT [facility] Gram Stain No organisms seen 10:38 AM EDT [facility] MD MICROBIOLOGY - GENERAL ORDERABLES Final Result [facility]
[address] [place] [address], [place] [phone] [facility] LABORATORY
[address] [place] [address], [place] [phone] * Anaerobic Culture - Swab, Leg, Right (04/07/2025 9:07 PM EDT) Anaerobic Culture No anaerobes isolated at 5 days ALIZA 04/13/2025 7:21 AM EDT [facility] Swab Structure of right lower limb / Unknown Collection / Unknown 04/07/2025 9:07 PM EDT 04/08/2025 4:36 AM EDT us Sushil Dean Jr., MD MICROBIOLOGY - GENERAL ORDERABLES Final Result [facility]
[address] [place] [address], * Heparin Anti-Xa (04/07/2025 9:10 AM EDT) Pathologist [facility] Heparin Anti-Xa (UFH) 0.30 0.30 - 0.70 IU/ml 04/07/2025 10:12 AM EDT [facility] Blood Venipuncture / Unknown 04/07/2025 9:10 AM EDT 04/07/2025 9:38 AM EDT Una Perla PharmD LAB BLOOD ORDERABLES Final R esult Performing Organization Address City/[facility]/ZIP Co de Phone Number [facility]
[address] [place] [address], * (ABNORMAL) CBC Auto Differential (04/07/2025 9:10 AM EDT) Pathologist [facility] WBC 8.63 3.40 - 10.80 10*3/mm3 04/07/2025 9:50 AM EDT [facility] RBC 5.23 4.14 - 5.80 10*6/mm3 04/07/2025 9:50 AM EDT [facility] Hemoglobin 14.7 13.0 - 17.7 g/dL 04/07/2025 9:50 AM EDT [facility] Hematocrit 44.8 37.5 - 51.0 % 04/07/2025 9:50 AM EDT [facility] MCV 85.7 79.0 - 97.0 fL 04/07/2025 9:50 AM EDT [facility] MCH 28.1 26.6 - 33.0 pg 04/07/2025 9:50 AM EDT [facility] MCHC 32.8 31.5 - 35.7 g/dL 04/07/2025 9:50 AM EDT [facility] RDW 12.8 12.3 - 15.4 % 04/07/2025 9:50 AM [facility] RDW-SD 39.9 37.0 - 54.0 fl 04/07/2025 9:50 AM [facility] MPV 10.8 6.0 - 12.0 fL 04/07/2025 9:50 AM [facility] Platelets 149 140 - 450 10*3/mm3 04/07/2025 9:50 AM [facility] Neutrophil % 66.7 42.7 - 76.0 % 04/07/2025 9:50 AM [facility] Lymphocyte % 20.5 19.6 - 45.3 % 04/07/2025 9:50 AM [facility] Monocyte % 9.8 5.0 - 12.0 % 04/07/2025 9:50 AM [facility] Eosinophil % 2.1 0.3 - 6.2 % 04/07/2025 9:50 AM [facility] Basophil % 0.3 0.0 - 1.5 % 04/07/2025 9:50 AM [facility] Immature Grans % 0.6(H) 0.0 - 0.5 % 04/07/2025 9:50 AM [facility] Neutrophils, Absolute 5.75 1.70 - 7.00 10*3/mm3 04/07/2025 9:50 AM [facility] Lymphocytes, Absolute 1.77 0.70 - 3.10 10*3/mm3 04/07/2025 9:50 AM [facility] Monocytes, Absolute 0.85 0.10 - 0.90 10*3/mm3 04/07/2025 9:50 AM [facility] Eosinophils, Absolute 0.18 0.00 - 0.40 10*3/mm3 04/07/2025 9:50 AM [facility] Basophils, Absolute 0.03 0.00 - 0.20 10*3/mm3 04/07/2025 9:50 AM [facility] Immature Grans, Absolute 0.05 0.00 - 0.05 10*3/mm3 04/07/2025 9:50 AM EDT [facility] nRBC 0.0 0.0 - 0.2 /100 WBC 04/07/2025 9:50 AM EDT [facility] Blood Venipuncture / Unknown 04/07/2025 9:10 AM EDT 04/07/2025 9:38 AM EDT us Jason Álvarez DO LAB BLOOD ORDERABLES Final Resul t [facility]
[address] [place] [address], * (ABNORMAL) Basic Metabolic Panel (04/07/2025 9:10 AM EDT) Glucose 112(H) 65 - 99 mg/dL 04/07/2025 10:19 AM EDT [facility] BUN 13.1 6.0 - 20.0 mg/dL 04/07/2025 10:19 AM EDT [facility] Creatinine 0.77 0.76 - 1.27 mg/dL 04/07/2025 10:19 AM EDT [facility] Sodium 139 136 - 145 mmol/L 04/07/2025 10:19 AM EDT [facility] Potassium 4.2 3.5 - 5.2 mmol/L 04/07/2025 10:19 AM EDT [facility] Comment:Specimen hemolyzed. Result may be falsely elevated. Chloride 105 98 - 107 mmol/L 04/07/2025 10:19 AM EDT [facility] CO2 24.8 22.0 - 29.0 mmol/L 04/07/2025 10:19 AM EDT [facility] Calcium 8.6 8.6 - 10.5 mg/dL 04/07/2025 10:19 AM EDT [facility] BUN/Creatinine Ratio 17.0 7.0 - 25.0 04/07/2025 10:19 AM EDT [facility] Anion Gap 9.2 5.0 - 15.0 mmol/L 04/07/2025 10:19 AM EDT [facility] eGFR 113.2 >60.0 mL/min/1.7 3 04/07/2025 10:19 AM EDT [facility] Blood Venipuncture / Unknown 04/07/2025 9:10 AM EDT 04/07/2025 9:38 AM EDT Narrative [facility] - 04/07/2025 10:19 [...] LAB BLOOD ORDERABLES Final Resul t [facility]
[address] [place] [address], * MRI Tibia Fibula Right With & [...] [place] 04/07/2025 9:58 AM EDT Workstation ID: [id number] Narrative 04/07/2025 9:58 AM EDT MRI TIBIA [...] [place] 04/07/2025 9:58 AM EDT Workstation ID: [id number] Sushil Dean Jr., MD IMG MRI ORDERABLES Mary Beth l Result * Heparin Anti-Xa (04/07/2025 1:42 AM EDT) [facility] Heparin Anti-Xa (UFH) 0.38 0.30 - 0.70 IU/ml 04/07/2025 2:14 AM EDT [facility] Blood Venipuncture / Unknown 04/07/2025 1:42 AM EDT 04/07/2025 1:54 AM EDT Chelsie Turpin [facility] LAB BLOOD ORDERABLES Final R esult [facility]
[address] [place] [address], * Heparin Anti-Xa (04/06/2025 7:16 PM EDT) [facility] Heparin Anti-Xa (UFH) 0.33 0.30 - 0.70 IU/ml 04/06/2025 7:50 PM EDT [facility] Blood Venipuncture / Unknown 04/06/2025 7:16 PM EDT 04/06/2025 7:35 PM EDT Cherri Beatty [facility] LAB BLOOD ORDERABLES Final Res ult Performing Organization Address [facility] Co de Phone Number [facility]
[address] [place] [address], * Potassium (04/06/2025 7:16 PM EDT) [facility] Potassium 4.0 3.5 - 5.2 mmol/L 04/06/2025 7:53 PM EDT [facility] Blood Venipuncture / Unknown 04/06/2025 7:16 PM EDT 04/06/2025 7:35 PM EDT Jason Álvarez DO LAB BLOOD ORDERABLES Final Resul t Performing Organization Address [facility] de Phone Number [facility]
[address] [place] [address], * (ABNORMAL) Heparin Anti-Xa (04/06/2025 12:36 PM EDT) [facility] Heparin Anti-Xa (UFH) 0.24(L) 0.30 - 0.70 IU/ml 04/06/2025 1:23 PM EDT [facility] Blood Venipuncture / Unknown 04/06/2025 12:36 PM EDT 04/06/2025 1:07 PM EDT Una Perla PharmD LAB BLOOD ORDERABLES Final R esult Performing Organization Address [facility] Co de Phone Number [facility]
[address] [place] [address], * (ABNORMAL) Heparin Anti-Xa (04/06/2025 3:42 AM EDT) [facility] Heparin Anti-Xa (UFH) 0.25(L) 0.30 - 0.70 IU/ml 04/06/2025 5:30 AM EDT [facility] Blood Venipuncture / Unknown 04/06/2025 3:42 AM EDT 04/06/2025 4:59 AM EDT Chelsie Dyana [facility] LAB BLOOD ORDERABLES Final R esult [facility]
[address] [place] [address], * (ABNORMAL) Basic Metabolic Panel (04/06/2025 3:42 AM EDT) [facility] Glucose 94 65 - 99 mg/dL 04/06/2025 5:59 AM EDT [facility] BUN 12.8 6.0 - 20.0 mg/dL 04/06/2025 5:59 AM EDT [facility] Creatinine 0.80 0.76 - 1.27 mg/dL 04/06/2025 5:59 AM EDT [facility] Sodium 138 136 - 145 mmol/L 04/06/2025 5:59 AM EDT [facility] Potassium 3.6 3.5 - 5.2 mmol/L 04/06/2025 5:59 AM EDT [facility] Chloride 103 98 - 107 mmol/L 04/06/2025 5:59 AM EDT [facility] CO2 24.2 22.0 - 29.0 mmol/L 04/06/2025 5:59 AM EDT [facility] Calcium 8.0(L) 8.6 - 10.5 mg/dL 04/06/2025 5:59 AM EDT [facility] BUN/Creatinine Ratio 16.0 7.0 - 25.0 04/06/2025 5:59 AM EDT [facility] Anion Gap 10.8 5.0 - 15.0 mmol/L 04/06/2025 5:59 AM EDT [facility] eGFR 111.9 >60.0 mL/min/1.7 3 04/06/2025 5:59 AM EDT [facility] Blood Venipuncture / Unknown 04/06/2025 3:42 AM EDT 04/06/2025 5:20 AM EDT [facility] - 04/06/2025 5:59 AM EDT GFR [...] LAB BLOOD ORDERABLES Final Resul t [facility]
[address] [place] [address], * (ABNORMAL) CBC Auto Differential (04/06/2025 3:41 AM EDT) WBC 10.86(H) 3.40 - 10.80 10*3/mm3 04/06/2025 5:04 AM EDT [facility] RBC 5.08 4.14 - 5.80 10*6/mm3 04/06/2025 5:04 AM EDT [facility] Hemoglobin 13.9 13.0 - 17.7 g/dL 04/06/2025 5:04 AM EDT [facility] Hematocrit 43.7 37.5 - 51.0 % 04/06/2025 5:04 AM EDT [facility] MCV 86.0 79.0 - 97.0 fL 04/06/2025 5:[facility] MCH 27.4 26.6 - 33.0 pg 04/06/2025 5:04 AM [facility] MCHC 31.8 31.5 - 35.7 g/dL 04/06/2025 5:04 AM [facility] RDW 12.8 12.3 - 15.4 % 04/06/2025 5:04 AM [facility] RDW-SD 40.0 37.0 - 54.0 fl 04/06/2025 5:04 AM [facility] MPV 11.7 6.0 - 12.0 fL 04/06/2025 5:04 AM [facility] Platelets 115(L) 140 - 450 10*3/mm3 04/06/2025 5:04 AM [facility] Neutrophil % 65.3 42.7 - 76.0 % 04/06/2025 5:04 AM [facility] Lymphocyte % 20.5 19.6 - 45.3 % 04/06/2025 5:04 AM [facility] Monocyte % 11.8 5.0 - 12.0 % 04/06/2025 5:04 AM [facility] Eosinophil % 1.8 0.3 - 6.2 % 04/06/2025 5:04 AM [facility] Basophil % 0.3 0.0 - 1.5 % 04/06/2025 5:04 [facility] Immature Grans % 0.3 0.0 - 0.5 % 04/06/2025 5:04 AM [facility] Neutrophils, Absolute 7.09(H) 1.70 - 7.00 10*3/mm3 04/06/2025 5:04 [facility] Lymphocytes, Absolute 2.23 0.70 - 3.10 10*3/mm3 04/06/2025 5:04 [facility] Monocytes, Absolute 1.28(H) 0.10 - 0.90 10*3/mm3 04/06/2025 5:04 AM EDT [facility] Eosinophils, Absolute 0.20 0.00 - 0.40 10*3/mm3 04/06/2025 5:04 AM EDT [facility] Basophils, Absolute 0.03 0.00 - 0.20 10*3/mm3 04/06/2025 5:04 AM EDT [facility] Immature Grans, Absolute 0.03 0.00 - 0.05 10*3/mm3 04/06/2025 5:04 AM EDT [facility] nRBC 0.0 0.0 - 0.2 /100 WBC 04/06/2025 5:04 AM EDT [facility] Blood Venipuncture / Unknown 04/06/2025 3:41 AM EDT 04/06/2025 4:58 AM EDT Jason Álvarez DO LAB BLOOD ORDERABLES Final Resul t Performing Organization Address City/[facility] Co de Phone Number [facility]
[address] [place] [address], [place] [phone] * Heparin Anti-Xa (04/05/2025 8:43 PM EDT) Pathologist [facility] Heparin Anti-Xa (UFH) 0.38 0.30 - 0.70 IU/ml 04/05/2025 9:09 PM EDT [facility] Blood Venipuncture / Unknown 04/05/2025 8:43 PM EDT 04/05/2025 8:55 PM EDT us Cherri Beatty [facility] LAB BLOOD ORDERABLES Final Res ult Performing Organization Address City/[facility] Co de Phone Number [facility]
[address] [place] [address], [place] [phone] * CK (04/05/2025 12:15 PM EDT) Creatine Kinase 140 20 - 200 U/L 04/05/2025 1:31 PM EDT [facility] Blood Venipuncture / Unknown 04/05/2025 12:15 PM EDT 04/05/2025 1:03 PM EDT Carlton Mead MD LAB BLOOD ORDERABLES Final R esult Performing Organization Address City/[facility]/ZIP Co de Phone Number [facility]
[address] [place] [address], * (ABNORMAL) Heparin Anti-Xa (04/05/2025 12:15 PM EDT) [facility] Heparin Anti-Xa (UFH) 0.17(L) 0.30 - 0.70 IU/ml 04/05/2025 1:21 PM EDT [facility] Blood Venipuncture / Unknown 04/05/2025 12:15 PM EDT 04/05/2025 1:04 PM EDT Una Perla PharmD LAB BLOOD ORDERABLES Final R esult Performing Organization Address City/[facility] Co de Phone Number [facility]
[address] [place] [address], * (ABNORMAL) aPTT (04/05/2025 3:54 AM EDT) [facility] PTT 35.3(L) 60.0 - 90.0 seconds 04/05/2025 4:31 AM EDT [facility] Blood Venipuncture / Unknown 04/05/2025 3:54 AM EDT 04/05/2025 4:15 AM EDT Narrative [facility] - 04/05/2025 4:31 AM EDT PTT = The equivalent PTT values for the therapeutic range of heparin levels at 0.3 to 0.5 U/ml are 60 to 70 seconds. [employer] LAB BLOOD ORDERABLES Final R esult [facility]
[address] [place] [address], * Heparin Anti-Xa (04/05/2025 3:54 AM EDT) Pathologist [facility] Heparin Anti-Xa (UFH) 0.30 0.30 - 0.70 IU/ml 04/05/2025 4:32 AM EDT [facility] Blood Venipuncture / Unknown 04/05/2025 3:54 AM EDT 04/05/2025 4:15 AM EDT [employer] LAB BLOOD ORDERABLES Final R esult Performing Organization Address City/[facility]/ZIP Co de Phone Number [facility]
[address] [place] [address], * (ABNORMAL) CBC Auto Differential (04/05/2025 3:54 AM EDT) [facility] WBC 11.18(H) 3.40 - 10.80 10*3/mm3 04/05/2025 4:20 AM EDT [facility] RBC 5.00 4.14 - 5.80 10*6/mm3 04/05/2025 4:20 AM EDT [facility] Hemoglobin 13.9 13.0 - 17.7 g/dL 04/05/2025 4:20 AM EDT [facility] Hematocrit 42.4 37.5 - 51.0 % 04/05/2025 4:20 AM EDT [facility] MCV 84.8 79.0 - 97.0 fL 04/05/2025 4:20 AM EDT [facility] MCH 27.8 26.6 - 33.0 pg 04/05/2025 4:20 AM EDT [facility] MCHC 32.8 31.5 - 35.7 g/dL 04/05/2025 4:20 AM [facility] RDW 12.9 12.3 - 15.4 % 04/05/2025 4:20 AM [facility] RDW-SD 39.7 37.0 - 54.0 fl 04/05/2025 4:20 AM [facility] MPV 10.2 6.0 - 12.0 fL 04/05/2025 4:20 AM [facility] Platelets 160 140 - 450 10*3/mm3 04/05/2025 4:20 AM [facility] Neutrophil % 73.5 42.7 - 76.0 % 04/05/2025 4:20 AM [facility] Lymphocyte % 14.0(L) 19.6 - 45.3 % 04/05/2025 4:20 AM [facility] Monocyte % 11.0 5.0 - 12.0 % 04/05/2025 4:20 AM [facility] Eosinophil % 0.8 0.3 - 6.2 % 04/05/2025 4:20 AM [facility] Basophil % 0.3 0.0 - 1.5 % 04/05/2025 4:20 AM [facility] Immature Grans % 0.4 0.0 - 0.5 % 04/05/2025 4:20 AM [facility] Neutrophils, Absolute 8.23(H) 1.70 - 7.00 10*3/mm3 04/05/2025 4:20 AM [facility] Lymphocytes, Absolute 1.56 0.70 - 3.10 10*3/mm3 04/05/2025 4:20 AM [facility] Monocytes, Absolute 1.23(H) 0.10 - 0.90 10*3/mm3 04/05/2025 4:20 AM [facility] Eosinophils, Absolute 0.09 0.00 - 0.40 10*3/mm3 04/05/2025 4:20 AM [facility] Basophils, Absolute 0.03 0.00 - 0.20 10*3/mm3 04/05/2025 4:20 AM EDT [facility] Immature Grans, Absolute 0.04 0.00 - 0.05 10*3/mm3 04/05/2025 4:20 AM EDT [facility] nRBC 0.0 0.0 - 0.2 /100 WBC 04/05/2025 4:20 AM EDT [facility] Blood Venipuncture / Unknown 04/05/2025 3:54 AM EDT 04/05/2025 4:16 AM EDT Una Perla PharmD LAB BLOOD ORDERABLES Final R esult [facility]
[address] [place] [address], * (ABNORMAL) Basic Metabolic Panel (04/05/2025 3:54 AM EDT) Glucose 152(H) 65 - 99 mg/dL 04/05/2025 4:40 AM EDT [facility] BUN 17.3 6.0 - 20.0 mg/dL 04/05/2025 4:40 AM EDT [facility] Creatinine 0.92 0.76 - 1.27 mg/dL 04/05/2025 4:40 AM EDT [facility] Sodium 136 136 - 145 mmol/L 04/05/2025 4:40 AM EDT [facility] Potassium 3.9 3.5 - 5.2 mmol/L 04/05/2025 4:40 AM EDT [facility] Chloride 103 98 - 107 mmol/L 04/05/2025 4:40 AM EDT [facility] CO2 24.0 22.0 - 29.0 mmol/L 04/05/2025 4:40 AM EDT [facility] Calcium 7.8(L) 8.6 - 10.5 mg/dL 04/05/2025 4:40 AM EDT [facility] BUN/Creatinine Ratio 18.8 7.0 - 25.0 04/05/2025 4:40 AM EDT [facility] Anion Gap 9.0 5.0 - 15.0 mmol/L 04/05/2025 4:40 AM EDT [facility] eGFR 105.2 >60.0 mL/min/1.7 3 04/05/2025 4:40 AM EDT [facility] Blood Venipuncture / Unknown 04/05/2025 3:54 AM EDT 04/05/2025 4:15 AM EDT [facility] - 04/05/2025 4:40 AM EDT GFR [...] MD LAB BLOOD ORDERABLES Final Re sult [facility]
[address] [place] [address], * (ABNORMAL) aPTT (04/05/2025 12:18 AM EDT) PTT 33.6(L) 60.0 - 90.0 seconds 04/05/2025 12:53 AM EDT [facility] Blood Venipuncture / Unknown 04/05/2025 12:18 AM EDT 04/05/2025 12:37 AM EDT [facility] - 04/05/2025 12:53 AM EDT PTT = The equivalent PTT values for the therapeutic range of heparin levels at 0.3 to 0.5 U/ml are 60 to 70 seconds. [employer] LAB BLOOD ORDERABLES Final R esult [facility]
[address] [place] [address], [place] [phone] * (ABNORMAL) Protime-INR (04/05/2025 12:18 AM EDT) Protime 15.9(H) 12.2 - 15.3 Seconds 04/05/2025 12:53 AM EDT [facility] INR 1.19(H) 0.89 - 1.12 04/05/2025 12:53 AM EDT [facility] Blood Venipuncture / Unknown 04/05/2025 12:18 AM EDT 04/05/2025 12:37 AM EDT [employer] LAB BLOOD ORDERABLES Final R esult Performing Organization Address [facility] Co de Phone Number [facility]
[address] [place] [address], [place] [phone] * Heparin Anti-Xa (04/05/2025 12:18 AM EDT) Pathologist [facility] Heparin Anti-Xa ([facility]) 0.39 0.30 - 0.70 IU/ml 04/05/2025 12:54 AM EDT [facility] Blood Venipuncture / Unknown 04/05/2025 12:18 AM EDT 04/05/2025 12:37 AM EDT [employer] LAB BLOOD ORDERABLES Final R esult Performing Organization Address City/[facility]/ZIP Co de Phone Number [facility]
[address] [place] [address], [place] [phone] * MRI Tibia Fibula Right With & [...] MD 04/04/2025 11:00 PM EDT Workstation ID: [id number] Narrative 04/04/2025 11:00 PM EDT MRI TIBIA [...] MD 04/04/2025 11:00 PM EDT Workstation ID: [id number] Leonora Shepherd MD IMG MRI ORDERABLES Final Resu lt * POC Creatinine (04/04/2025 2:49 PM EDT) Creatinine 1.10 0.60 - 1.30 mg/dL 04/07/2025 7:14 PM EDT [facility] Comment:Serial Number: [id number]: [id number] Venous Blood 04/04/2025 2:49 PM EDT 04/07/2025 7:14 PM EDT Jason Álvarez DO POINT OF CARE TEST ORDERABLES Fi nal Result [facility]
[address] [place] [address], [place] [phone] * (ABNORMAL) CBC Auto Differential (04/04/2025 2:47 PM EDT) [facility] Signature WBC 12.72(H) 3.40 - 10.80 10*3/mm3 04/04/2025 2:56 PM EDT [facility] RBC 5.64 4.14 - 5.80 10*6/mm3 04/04/2025 2:56 PM EDT [facility] Hemoglobin 15.3 13.0 - 17.7 g/dL 04/04/2025 2:56 PM EDT [facility] Hematocrit 47.9 37.5 - 51.0 % 04/04/2025 2:56 PM EDT [facility] MCV 84.9 79.0 - 97.0 fL 04/04/2025 2:56 PM EDT [facility] MCH 27.1 26.6 - 33.0 pg 04/04/2025 2:56 PM EDT [facility] [facility] MCHC 31.9 31.5 - 35.7 g/dL 04/04/2025 2:56 PM EDT [facility] RDW 13.1 12.3 - 15.4 % 04/04/2025 2:56 PM EDT [facility] RDW-SD 40.3 37.0 - 54.0 fl 04/04/2025 2:56 PM EDT [facility] MPV 9.4 6.0 - 12.0 fL 04/04/2025 2:56 PM EDT [facility] Platelets 232 140 - 450 10*3/mm3 04/04/2025 2:56 PM EDT [facility] Neutrophil % 74.9 42.7 - 76.0 % 04/04/2025 2:56 PM EDT [facility] Lymphocyte % 13.1(L) 19.6 - 45.3 % 04/04/2025 2:56 PM EDT [facility] Monocyte % 11.2 5.0 - 12.0 % 04/04/2025 2:56 PM EDT [facility] Eosinophil % 0.4 0.3 - 6.2 % 04/04/2025 2:56 PM EDT [facility] Basophil % 0.2 0.0 - 1.5 % 04/04/2025 2:56 PM EDT [facility] Immature Grans % 0.2 0.0 - 0.5 % 04/04/2025 2:56 PM EDT [facility] Neutrophils, Absolute 9.52(H) 1.70 - 7.00 10*3/mm3 04/04/2025 2:56 PM EDT [facility] Lymphocytes, Absolute 1.66 0.70 - 3.10 10*3/mm3 04/04/2025 2:56 PM EDT [facility] Monocytes, Absolute 1.43(H) 0.10 - 0.90 10*3/mm3 04/04/2025 2:56 PM EDT [facility] Eosinophils, Absolute 0.05 0.00 - 0.40 10*3/mm3 04/04/2025 2:56 PM EDT [facility] Basophils, Absolute 0.03 0.00 - 0.20 10*3/mm3 04/04/2025 2:56 PM EDT [facility] Immature Grans, Absolute 0.03 0.00 - 0.05 10*3/mm3 04/04/2025 2:56 PM EDT [facility] nRBC 0.0 0.0 - 0.2 /100 WBC 04/04/2025 2:56 PM EDT [facility] Blood Venipuncture / Unknown 04/04/2025 2:47 PM EDT 04/04/2025 2:52 PM EDT us Mario Crowley DO LAB BLOOD ORDERABLES Fin al Result [facility]
[address] [place] [address], * (ABNORMAL) C-reactive Protein (04/04/2025 2:47 PM EDT) Pathologist [facility] C-Reactive Protein 8.57(H) 0.00 - 0.50 mg/dL 04/04/2025 3:26 PM EDT [facility] Blood Venipuncture / Unknown 04/04/2025 2:47 PM EDT 04/04/2025 2:52 PM EDT Mario Ortiz Keo LAB BLOOD ORDERABLES Fin al Result [facility]
[address] [place] [address], * (ABNORMAL) Sedimentation Rate (04/04/2025 2:47 PM EDT) [facility] Sed Rate 51(H) 0 - 15 mm/hr 04/04/2025 3:06 PM EDT [facility] Blood Venipuncture / Unknown 04/04/2025 2:47 PM EDT 04/04/2025 2:52 PM EDT Mario Ortiz Keo LAB BLOOD ORDERABLES Fin al Result Performing Organization Address City/[facility]/ZIP Co de Phone Number [facility]
[address] [place] [address], * Comprehensive Metabolic Panel (04/04/2025 2:47 PM EDT) [facility] Glucose 90 65 - 99 mg/dL 04/04/2025 3:26 PM EDT [facility] BUN 18.3 6.0 - 20.0 mg/dL 04/04/2025 3:26 PM EDT [facility] Creatinine 0.94 0.76 - 1.27 mg/dL 04/04/2025 3:26 PM EDT [facility] Sodium 136 136 - 145 mmol/L 04/04/2025 3:26 PM EDT [facility] Potassium 3.8 3.5 - 5.2 mmol/L 04/04/2025 3:26 PM EDT [facility] Chloride 100 98 - 107 mmol/L 04/04/2025 3:26 PM EDT [facility] CO2 25.3 22.0 - 29.0 mmol/L 04/04/2025 3:26 PM EDT [facility] Calcium 8.6 8.6 - 10.5 mg/dL 04/04/2025 3:26 PM EDT [facility] Total Protein 7.3 6.0 - 8.5 g/dL 04/04/2025 3:26 PM EDT [facility] Albumin 4.1 3.5 - 5.2 g/dL 04/04/2025 3:26 PM EDT [facility] ALT (SGPT) 26 1 - 41 U/L 04/04/2025 3:26 PM EDT [facility] AST (SGOT) 25 1 - 40 U/L 04/04/2025 3:26 PM EDT [facility] Alkaline Phosphatase 106 39 - 117 U/L 04/04/2025 3:26 PM T [facility] Total Bilirubin 1.0 0.0 - 1.2 mg/dL 04/04/2025 3:26 PM EDT [facility] Globulin 3.2 gm/dL 04/04/2025 3:26 PM T [facility] Comment:Calculated Result A/G Ratio 1.3 g/dL 04/04/2025 3:26 PM EDT [facility] BUN/Creatinine Ratio 19.5 7.0 - 25.0 04/04/2025 3:26 PM T [facility] Anion Gap 10.7 5.0 - 15.0 mmol/L 04/04/2025 3:26 PM T [facility] eGFR 102.5 >60.0 mL/min/1.7 3 04/04/2025 3:26 PM [facility] Blood Venipuncture / Unknown 04/04/2025 2:47 PM EDT 04/04/2025 2:52 PM EDT Narrative [facility] - 04/04/2025 3:26 PM EDT [...] DO LAB BLOOD ORDERABLES Fin al Result [facility]
[address] [place] [address], documented in this encounter Visit Diagnoses Diagnosis [...] Salazar, KELL)1943 (Given - Provider: Anahy Marcelino, EVAPORATOR)2129 (Canceled Entry - Provider: Anahy Marcelino EVAPORATOR - Comment: previously given) 0837 (Given - Provider: Amber Salazar RRT)2006 (Given - Provider: Loree Reese RRT)2129 (Canceled Entry - Provider: Loree Reese RRT) 1037 (Given - Provider: Leonora hCen, KELL) cefTRIAXone (ROCEPHIN) 2,000 mg in sodium [...] medication prescribed for a lower pain scale. ([facility]) If given for pain, use the following [...] Continuous Medication Order 04/09/2025 04/10/2025 04/11/2025 heparin 33647 units/250 mL (100 units/mL) in 0.45 % [...] as of this encounter Care Teams Manager Audit Relationship Specialty Start Date End Date Provider, [place] [address] PCP - General 05/09/23 documented as of this encounter
--- OUTSIDE RECORDS SUMMARY | 2025-04-08 15:34 | XMS_ITS | Encounter Summary ---
Author Organization [facility] Address [address] [place] [address] Care Team Providers Care Gauge And Weigh Machine Operator Name Role Phone Provider, No Known Primary Care Provider Unavail able Reason for Visit * Auth/Cert Specialty Diagnoses / Procedures Referred By Bulmaro muniz Referred To Contact Diagnoses Right BKA infection Referral ID Status Reason Start Date Expiration Date Visits Re quested Visits Authorized [id number] 1 1 Encounter Details Date Type Department Care Team (Late st Contact Info) Description 04/08/2025 3:34 PM EDT Anesthesia Event [facility] OR [address] [place] [address] Ulises Hoffman MD [address] [place] [address] Jairo Brooks MD [address] [place] [address] Anesthesia Record Procedure Summary Procedure Name Responsible [...] 0.6 oz pur e alcohol) [facility] Utilities Answer Date Recorded In the past 12 months has [employer], oil, or water [employer] threatened to shut off services in your [...] or training? Not on file Preferred Language Honduran 04/07/2025 Sex and Gender Information Value Date Recorded Sex Assigned at Not on file Legal Sex Male 7:30 PM EDT Gender Identity Not on file Sexual Orientation Not on file documented as of this encounter OR Notes * Anesthesia Postprocedure Evaluation - Stan Casillas CRNA - 04/08/2025 4:40 PM EDT Patient: Won Dennis Procedure Summary Date: 04/08/25 Room / Location: [facility] OR [address] [place] [address] [facility] [place] Anesthesia Start: 1533 Anesthesia Stop: [...] ROS Abdominal Substance History - negative use CABLE DRILLER negative tier over ROS Other Anesthesia Plan ASA 3 general [...] documented as of this encounter Care Teams Gauge And Weigh Machine Operator Relationship Specialty Start Date End Date Provider, [place] [address] PCP - General 05/09/23 documented as of this encounter
[2025-04-30 09:10] VITALS: BP 119/71; PULSE 71; RESP 18; TEMP 36.4; O2SAT 96
[2025-04-30] MEDS: DAPTOmycin 1,000 MG in 0.9 % SODIUM CHLORIDE 50 ML 100 MG IV (09:11)
[2025-04-30] MEDS: SODIUM CHLORIDE 0.9% 10ML FLUSH SYRINGE 10 ML IV (09:11)
--- OUTSIDE RECORDS SUMMARY | 2025-04-30 09:13 | XMS_ITS | Clinical Summary ---
Author Organization [facility] Address [address] [facility] [facility] [address] [place] [address] Phone Care Team Providers Care Occasional Caregiver Name Role Phone Unavailable Unavailable Conditions or Problems No information available. Medications No information available. Medications Administered No information available. Allergies, Adverse Reactions, Alerts No information available. Results No information available. Plan of Care No information available. Procedures No information available. Vital Signs No information available. Immunizations No information available. Advance Directives No information available.
--- OUTSIDE RECORDS SUMMARY | 2025-04-30 09:14 | XMS_ITS | Patient Health Record ---
[facility] [address] [place] [id number] Care Team Providers Care Fish Bin Tender Name Role Phone Zeeshan Salazar Primary Care [...] W/U Status Risk Notes Problem Essential hypertension (14582782) HTN [Hypertension] (401.9) Active confirmed appears resolved Problem Hypothyroidism (76632465) Hypothyroidism NOS (244.9) Active confirmed Problem Hyperlipidemia (33100048) Hyperlipidemia (272.4) Active confirmed Problem Constipation (46184783) Constipation, unspecified constipation type (K59.00) Active confirmed Problem History of pulmonary embolism on long-term anticoagulation therapy (85454318182093375 ) Hx pulmonary embolism (Z86.711) Active confirmed Problem Long-term current use of anticoagulant (538939654) 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.01) Active confirmed Problem Adjustment disorder with anxious mood (34455109) Adjustment disorder with anxious mood (F43.22) Active confirmed Problem History of pulmonary embolus (223006134) History of pulmonary embolus (PE) (Z86.711) Active confirmed Problem Methicillin resistant Staphylococcus aureus infection (disorder) (298718190) Infection of wound due to methicillin resistant Staphylococcus aureus (MRSA) (A49.02) Active confirmed Problem Arthritis of knee (151227477) Arthritis of knee (M17.10) Active confirmed Problem Amputated below knee (375490851) Status post below knee amputation of right lower extremity (Z89.511) Active confirmed Problem Gastroesophageal reflux disease (625104831) Gastroesophageal reflux disease, unspecified whether esophagitis present [...]
--- OUTSIDE RECORDS SUMMARY | 2025-04-30 09:17 | XMS_ITS | Encounter Summary ---
Author Organization Healthcare Address [address] [place] [address] Care Team Providers Care Machine Gunner Name Role Phone Unavailable Primary Care Provider Unavailabl e Encounter Details Date Type Department Care Team (Late st Contact Info) Description 05/13/2023 Lab Requisition [facility] [address] [place] [address] Sushil Dean MD [address] [facility] [place] [address] Encounter for general adult medical examination without [...] RDERABLES Final Result Performing Organization Address [facility] Co de Phone Number [facility] [address] [place] [address] * Anaerobic Culture (05/13/2023 9:17 AM EDT) Culture No growth at day 4 05/20/2023 10:35 AM EST [facility] Bone 05/13/2023 9:17 AM EDT 05/13/2023 1:25 PM EDT us Sushil Dean MD LAB MICROBIOLOGY - GENERAL O RDERABLES Final Result Performing Organization Address [facility] de Phone Number [facility] [address] [place] [address] * Bone Culture and Gram Stain (05/13/2023 [...] RDERABLES Final Result Performing Organization Address [facility] de Phone Number [facility] [address] [place] [address] documented in this encounter Visit Diagnoses Diagnosis Encounter for general adult medical examination without abnormal findings documented in this encounter
--- OUTSIDE RECORDS SUMMARY | 2025-04-30 09:17 | XMS_ITS | Encounter Summary ---
Author Organization [facility] Address [address] [place] [address] Care Team Providers Care Fat Pressroom Worker Name Role Phone Provider, No Known [...] 2:25 PM EDT Cherri Grimm RN * Russell Suicide Severity Rating Scale (Screener/Recent Self-Report) Question [...] documented as of this encounter Care Teams Fat Pressroom Worker Relationship Specialty Start Date End Date Provider, No Known [facility] [place] [address] PCP - General 05/09/23 documented as of this encounter
--- OUTSIDE RECORDS SUMMARY | 2025-04-30 09:17 | XMS_ITS | Encounter Summary ---
Author Organization Healthcare Address [address] [place] [address] Care Team Providers Care Pharmacists Name Role Phone Unavailable Primary Care Provider Unavailabl e Encounter Details Date Type Department Care Team (Late st Contact Info) Description 07/20/2022 Lab Requisition [facility] [address] [place] [address] Sushil Dean MD [address] [place] [address] Encounter for general adult medical examination without [...]
--- OUTSIDE RECORDS SUMMARY | 2025-04-30 09:17 | XMS_ITS | Encounter Summary ---
Author Organization Healthcare Address [address] [place] [address] Care Team Providers Care Web Production Designer Name Role Phone Unavailable Primary Care Provider Unavailabl e Encounter Details Date Type Department Care Team (Late st Contact Info) Description 08/12/2022 Lab Requisition [facility] [address] [place] [address] Sushil Dean MD [address] [place] [address] Encounter for general adult medical examination without [...] has been identified using the FDA Approved Citizen Sportser CA System The organism value for this [...] Final Result Performing Organization Address City/[facility] de Phone Number [facility]ALTHCARE [facility] [address] [place] [address] * Bone Culture and Gram Stain (08/12/2022 [...] Final Result Performing Organization Address City/[facility] de Phone Number [facility] [address] [place] [address] documented in this encounter Visit Diagnoses Diagnosis Encounter for general adult medical examination without abnormal findings documented in this encounter
--- OUTSIDE RECORDS SUMMARY | 2025-04-30 09:17 | XMS_ITS | Encounter Summary ---
Author Organization [facility] Address [address] [place] [address] Care Team Providers Care Midlevel Provider Name Role Phone Unavailable Primary Care Provider Unavailabl e Encounter Details Date Type Department Care Team (Late st Contact Info) Description 10/03/2022 Lab Requisition [facility] [address] [place] [address] Dalila Cox MD [address] [place], [place] [id number] Encounter for general adult medical examination without [...] Culture Neelima albicans(A) 10/05/2022 11:58 AM EDT [facility] Comment: This result was determined by MALDI tof Mass spectrometry. This assay was developed and its performance characteristics determined by [facility] as appropriate for clinical purposes. [...] Edited Result - Final [facility] [address] [place] [address] documented in this encounter Visit Diagnoses Diagnosis Encounter for general adult medical examination without abnormal findings documented in this encounter
--- OUTSIDE RECORDS SUMMARY | 2025-04-30 09:17 | XMS_ITS | Encounter Summary ---
Author Organization Healthcare Address [address] [place] [address] Care Team Providers Care Derrick Worker Well Service Name Role Phone Unavailable Primary Care Provider Unavailabl e Encounter Details Date Type Department Care Team (Late st Contact Info) Description 07/20/2022 Lab Requisition [facility] [address] [place] [address] Sushil Dean MD [address] [place] [address] Encounter for general adult medical examination without [...] O RDERABLES Final Result Performing Organization Address City/[place] [facility] Co de Phone Number [facility] [address] [place] [address] * Bone Culture and Gram Stain (07/20/2022 [...] O RDERABLES Final Result Performing Organization Address City/[place] [facility] Co de Phone Number [facility] [address] [place] [address] documented in this encounter Visit Diagnoses Diagnosis Encounter for general adult medical examination without abnormal findings documented in this encounter
--- OUTSIDE RECORDS SUMMARY | 2025-04-30 09:17 | XMS_ITS | Encounter Summary ---
Author Organization Healthcare Address [address] [place] [address] Care Team Providers Care Risk Control Officer Name Role Phone Unavailable Primary Care Provider Unavailabl e Encounter Details Date Type Department Care Team (Late st Contact Info) Description 05/17/2023 Lab Requisition [facility] [address] [place] [address] Sushil Dean MD [address] [facility] [address] [place] [address] Encounter for general adult medical examination without [...] O RDERABLES Final Result Performing Organization Address City/[facility] Co de Phone Number [facility] [address] [place] [address] * Bone Culture and Gram Stain (05/17/2023 [...] Final Result Performing Organization Address [facility] Co de Phone Number [facility] [address] [place] [address] documented in this encounter Visit Diagnoses Diagnosis Encounter for general adult medical examination without abnormal findings documented in this encounter
--- OUTSIDE RECORDS SUMMARY | 2025-04-30 09:17 | XMS_ITS | Clinical Summary ---
Author Organization [facility] Address [address] [place] [address] Care Team Providers Care Box Car Bracer Name Role Phone Provider, No Known Primary [...] Discontinue d(Stop Taking at Discharge) Lactobacillus- Inulin ([facility] [employer] [facility]) capsule Take 200 mg by mouth [...] 04/08/2025 3:34 PM EDT Anesthesia [place] [facility] [place] [address] [place] [phone] Ulises Hoffman MD Wells, Jeremy B., MD 04/08/2025 2:45 PM EDT - 04/08/2025 4:04 PM EDT Surgery [facility] [address] [place] [address] Sushil Dean Jr., MD LEG DEBRIDEMENT AND IRRIGATION 04/07/2025 8:36 PM EDT Anesthesia Event [facility] [address] [place] [address] Luci Alonso DO 04/07/2025 6:00 PM EDT - 04/07/2025 6:52 PM EDT Surgery [facility] [address] [place] [address] Sushil Dean Jr., MD LEG DEBRIDEMENT, IRRIGATION 04/04/2025 4:10 PM EDT - 04/11/2025 1:58 PM EDT Hospital Encounter [facility] 5G [address] [place] [address] Mario Crowley DO Anderson, Laurie, [...] 0.6 oz pur e alcohol) [facility] Utilities Answer Date Recorded In the past 12 months has [employer], gas, oil, or water [employer] threatened to shut off services in your [...] or training? Not on file Preferred Language Croatian 04/07/2025 Sex and Gender Information Value Date [...] this topic Medical Devices Implanted Type Area Tile Setter Supervisor Device Identifier Shelf Expiration Date Model / Serial / Lot Dev Wnd/Cls Contrl Tiss [employer] Spiral [employer]s Pds Ct1 0 22cm - [id number] Implanted:Qty: 1 on 04/08/2025 by Sushil Dean Jr., MD at [facility] Implant Right: Leg [employer] 12/07/2025 [id number] / [id number] Procedures Procedure Name Priority [...] the time period is included. Pathologist [facility] WBC 7.87 3.40 - 10.80 10*3/mm3 04/11/2025 4:02 AM EDT [facility] RBC 4.70 4.14 - 5.80 10*6/mm3 04/11/2025 4:02 AM EDT [facility] Hemoglobin 12.8(L) 13.0 - 17.7 g/dL 04/11/2025 4:02 AM EDT [facility] Hematocrit 40.5 37.5 - 51.0 % 04/11/2025 4:02 AM EDT [facility] MCV 86.2 79.0 - 97.0 fL 04/11/2025 4:02 AM EDT [facility] MCH 27.2 26.6 - 33.0 pg 04/11/2025 4:02 AM EDT [facility] MCHC 31.6 31.5 - 35.7 g/dL 04/11/2025 4:02 AM EDT [facility] RDW 12.9 12.3 - 15.4 % 04/11/2025 4:02 AM EDT [facility] RDW-SD 40.5 37.0 - 54.0 fl 04/11/2025 4:02 AM EDT [facility] MPV 9.2 6.0 - 12.0 fL 04/11/2025 4:02 AM EDT [facility] Platelets 267 140 - 450 10*3/mm3 04/11/2025 4:02 AM EDT [facility] Neutrophil % 59.5 42.7 - 76.0 % 04/11/2025 4:02 AM EDT [facility] Lymphocyte % 26.3 19.6 - 45.3 % 04/11/2025 4:02 AM EDT [facility] Monocyte % 9.3 5.0 - 12.0 % 04/11/2025 4:02 AM [facility] Eosinophil % 4.1 0.3 - 6.2 % 04/11/2025 4:02 AM EDT [facility] Basophil % 0.4 0.0 - 1.5 % 04/[facility] Immature Grans % 0.4 0.0 - 0.5 % 04/11/2025 4:02 AM [facility] Neutrophils, Absolute 4.69 1.70 - 7.00 10*3/mm3 04/11/2025 4:02 AM [facility] Lymphocytes, Absolute 2.07 0.70 - 3.10 10*3/mm3 04/11/2025 4:02 AM [facility] Monocytes, Absolute 0.73 0.10 - 0.90 10*3/mm3 04/11/2025 4:02 AM [facility] Eosinophils, Absolute 0.32 0.00 - 0.40 10*3/mm3 04/11/2025 4:02 AM [facility] Basophils, Absolute 0.03 0.00 - 0.20 10*3/mm3 04/11/2025 4:02 AM [facility] Immature Grans, Absolute 0.03 0.00 - 0.05 10*3/mm3 04/11/2025 4:02 AM [facility] nRBC 0.0 0.0 - 0.2 /100 WBC 04/11/2025 4:02 AM [facility] Blood Venipuncture / Unknown 04/11/2025 3:40 AM EDT 04/11/2025 3:59 AM EDT Sushil Dean Jr., MD LAB BLOOD ORDERABLES Fi nal Result [facility]
[address] [place] [address], * (ABNORMAL) Comprehensive Metabolic Panel (04/11/2025 3:40 AM EDT) Only the most recent of2 resultswithin the time period is included. Glucose 108(H) 65 - 99 mg/dL 04/11/2025 4:19 AM EDT [facility] BUN 12.5 6.0 - 20.0 mg/dL 04/11/2025 4:19 AM EDT [facility] Creatinine 0.68(L) 0.76 - 1.27 mg/dL 04/11/2025 4:19 AM EDT [facility] Sodium 140 136 - 145 mmol/L 04/11/2025 4:19 AM EDT [facility] Potassium 3.8 3.5 - 5.2 mmol/L 04/11/2025 4:19 AM EDT [facility] Chloride 105 98 - 107 mmol/L 04/11/2025 4:19 AM EDT [facility] CO2 28.2 22.0 - 29.0 mmol/L 04/11/2025 4:19 AM EDT [facility] Calcium 8.2(L) 8.6 - 10.5 mg/dL 04/11/2025 4:19 AM EDT [facility] Total Protein 6.1 6.0 - 8.5 g/dL 04/11/2025 4:19 AM EDT [facility] Albumin 3.1(L) 3.5 - 5.2 g/dL 04/11/2025 4:19 AM EDT [facility] ALT (SGPT) 52(H) 1 - 41 U/L 04/11/2025 4:19 AM EDT [facility] AST (SGOT) 40 1 - 40 U/L 04/11/2025 4:19 AM EDT [facility] Alkaline Phosphatase 99 39 - 117 U/L 04/11/2025 4:19 AM EDT [facility] Total Bilirubin 0.2 0.0 - 1.2 mg/dL 04/11/2025 4:19 AM EDT [facility] Globulin 3.0 gm/dL 04/11/2025 4:19 AM EDT [facility] Comment:Calculated Result A/G Ratio 1.0 g/dL 04/11/2025 4:19 AM EDT [facility] BUN/Creatinine Ratio 18.4 7.0 - 25.0 04/11/2025 4:19 AM EDT [facility] Anion Gap 6.8 5.0 - 15.0 mmol/L 04/11/2025 4:19 AM EDT [facility] eGFR 117.5 >60.0 mL/min/1.7 3 04/11/2025 4:19 AM EDT [facility] Blood Venipuncture / Unknown 04/11/2025 3:40 AM EDT 04/11/2025 3:56 AM EDT [facility] - 04/11/2025 4:19 AM [...] race as a factor us Rosario Hill ADZING AND BORING MACHINE FEEDER LAB BLOOD ORDERABLES Final Result [facility]
[address] [place] [id number], * Heparin Anti-Xa (04/10/2025 3:46 AM EDT) Only the most recent of13 resultswithin the time period is included. Heparin Anti-Xa (UFH) 0.35 0.30 - 0.70 IU/ml 04/10/2025 4:23 AM EDT [facility] Blood Venipuncture / Unknown 04/10/2025 3:46 AM EDT 04/10/2025 3:53 AM EDT Larisa Hamilton [facility] LAB BLOOD ORDERABLES Final R esult [facility]
[address] [place] [address], * (ABNORMAL) Basic Metabolic Panel (04/10/2025 3:46 AM EDT) Only the most recent of6 resultswithin the time period is included. [facility] Glucose 125(H) 65 - 99 mg/dL 04/10/2025 4:20 AM EDT [facility] BUN 15.9 6.0 - 20.0 mg/dL 04/10/2025 4:20 AM EDT [facility] Creatinine 0.77 0.76 - 1.27 mg/dL 04/10/2025 4:20 AM EDT [facility] Sodium 137 136 - 145 mmol/L 04/10/2025 4:20 AM EDT [facility] Potassium 3.9 3.5 - 5.2 mmol/L 04/10/2025 4:20 AM EDT [facility] Chloride 102 98 - 107 mmol/L 04/10/2025 4:20 AM EDT [facility] CO2 26.9 22.0 - 29.0 mmol/L 04/10/2025 4:20 AM EDT [facility] Calcium 7.9(L) 8.6 - 10.5 mg/dL 04/10/2025 4:20 AM EDT [facility] BUN/Creatinine Ratio 20.6 7.0 - 25.0 04/10/2025 4:20 AM EDT [facility] Anion Gap 8.1 5.0 - 15.0 mmol/L 04/10/2025 4:20 AM EDT [facility] eGFR 113.2 >60.0 mL/min/1.7 3 04/10/2025 4:20 AM EDT [facility] Blood Venipuncture / Unknown 04/10/2025 3:46 AM EDT 04/10/2025 3:52 AM EDT Narrative [facility] - 04/10/2025 4:20 AM EDT GFR [...] BLOOD ORDERABLES Final Resul t [facility]
[address] [place] [address], * Wound Culture - Swab, Leg, Right (04/08/2025 3:40 PM EDT) Only the most recent of3 resultswithin the time period is included. Wound Culture No growth at 3 days ALIZA 04/11/2025 10:40 AM EDT [facility] Gram Stain Few (2+) WBCs seen 04/11/2025 10:40 AM EDT [facility] Gram Stain No organisms seen 04/11/2025 10:40 AM EDT [facility] Swab Structure of right lower limb / Unknown 04/08/2025 3:40 PM EDT 04/08/2025 8:05 PM EDT Sushil Dean Jr., MD MICROBIOLOGY - GENERAL ORDERABLES Final Result Performing Organization Address City/[facility]/ZIP Co de Phone Number [facility]
[address] [place] [address], [facility]
[address] [place] [address], [place] [phone] * Anaerobic Culture - Swab, Leg, Right [...] ORDERABLES Final Result Performing Organization Address [facility] Co de Phone Number [facility]
[address] [place] [address], * Scan Slide (04/08/2025 8:41 AM EDT) RBC Morphology Normal Normal 04/08/2025 11:02 AM EDT [facility] WBC Morphology Normal Normal 04/08/2025 11:02 AM EDT [facility] Platelet Estimate Adequate Normal 04/08/2025 11:02 AM EDT [facility] Clumped Platelets Present None Seen 04/08/2025 11:02 AM EDT [facility] Blood Venipuncture / Unknown 04/08/2025 8:41 AM EDT 04/08/2025 9:10 AM EDT Una Perla PharmD LAB BLOOD ORDERABLES Final R esult Performing Organization Address City/[facility]/ZIP Co de Phone Number [facility]
[address] [place] [address], [place] [phone] * FL C Arm During Surgery (04/07/2025 [...] seen 04/11/2025 10:36 AM EDT [facility] Gram Stain No organisms seen 04/11/2025 10:36 AM EDT [facility] Tissue Structure of right lower limb / Unknown 04/07/2025 9:13 PM EDT 04/08/2025 4:54 AM EDT us Sushil Dean Jr., MD MICROBIOLOGY - GENERAL ORDERABLES Final Result [facility]
[address] [place] [address], [facility]
[address] [place] [address], * BH AN ETT AIRWAY (04/07/2025 8:44 [...] Buenrsotro 04/07/2025 9:58 AM EDT Workstation ID: [id number] Narrative 04/07/2025 9:58 AM EDT MRI TIBIA [...] Buenrostro 04/07/2025 9:58 AM EDT Workstation ID: [id number] Sushil Dean Jr., MD IMG MRI ORDERABLES Mary Beth l Result * Potassium (04/06/2025 7:16 PM EDT) Potassium 4.0 3.5 - 5.2 mmol/L 04/06/2025 7:53 PM EDT [facility] Blood Venipuncture / Unknown 04/06/2025 7:16 PM EDT 04/06/2025 7:35 PM EDT Jason Álvarez DO LAB BLOOD ORDERABLES Final Resul t Performing Organization Address City/[facility]/ZIP Co de Phone Number [facility]
[address] [place] [address], * CK (04/05/2025 12:15 PM EDT) Creatine Kinase 140 20 - 200 U/L 04/05/2025 1:31 PM EDT [facility] Blood Venipuncture / Unknown 04/05/2025 12:15 PM EDT 04/05/2025 1:03 PM EDT Carlton Mead MD LAB BLOOD ORDERABLES Final R esult Performing Organization Address City/[facility]/ZIP Co de Phone Number [facility]
[address] [place] [address], * (ABNORMAL) aPTT (04/05/2025 3:54 AM EDT) Only the most recent of2 resultswithin the time period is included. PTT 35.3(L) 60.0 - 90.0 seconds 04/05/2025 4:31 AM EDT [facility] Blood Venipuncture / Unknown 04/05/2025 3:54 AM EDT 04/05/2025 4:15 AM EDT Narrative [facility] - 04/05/2025 4:31 AM EDT PTT = The equivalent PTT values for the therapeutic range of heparin levels at 0.3 to 0.5 U/ml are 60 to 70 seconds. [employer] LAB BLOOD ORDERABLES Final R esult Performing Organization Address City/[facility]/ZIP Co de Phone Number [facility]
[address] [place] [address], * (ABNORMAL) Protime-INR (04/05/2025 12:18 AM EDT) Pathologist [facility] Protime 15.9(H) 12.2 - 15.3 Seconds 04/05/2025 12:53 AM EDT [facility] INR 1.19(H) 0.89 - 1.12 04/05/2025 12:53 AM EDT [facility] Blood Venipuncture / Unknown 04/05/2025 12:18 AM EDT 04/05/2025 12:37 AM EDT [employer] LAB BLOOD ORDERABLES Final R esult Performing Organization Address City/[facility]/ZIP Co de Phone Number [facility]
[address] [place] [address], * POC Creatinine (04/04/2025 2:49 PM EDT) Pathologist [facility] Creatinine 1.10 0.60 - 1.30 mg/dL 04/07/2025 7:14 PM EDT [facility] Comment:Serial Number: [id number] 7Operator: [id number] Venous Blood 04/04/2025 2:49 PM EDT 04/07/2025 7:14 PM EDT Jason Álvarez DO POINT OF CARE TEST ORDERABLES Fi nal Result Performing Organization Address [facility] Co de Phone Number [facility]
[address] [place] [address], * (ABNORMAL) Sedimentation Rate (04/04/2025 2:47 PM EDT) Sed Rate 51(H) 0 - 15 mm/hr 04/04/2025 3:06 PM EDT [facility] Blood Venipuncture / Unknown 04/04/2025 2:47 PM EDT 04/04/2025 2:52 PM EDT Mario Crowley LAB BLOOD ORDERABLES Fin al Result Performing Organization Address [facility] de Phone Number [facility]
[address] [place] [address], * (ABNORMAL) C-reactive Protein (04/04/2025 2:47 PM EDT) C-Reactive Protein 8.57(H) 0.00 - 0.50 mg/dL 04/04/2025 3:26 PM EDT [facility] Blood Venipuncture / Unknown 04/04/2025 2:47 PM EDT 04/04/2025 2:52 PM EDT Mario Crowley DO LAB BLOOD ORDERABLES Fin al Result Performing Organization Address [facility] Co de Phone Number [facility]
[address] [place] [address], from Last 3 Months Additional Health Concerns [...] Of Support Discussed With: Patient Care Teams Box Car Bracer Relationship Specialty Start Date End Date Provider, No Known [facility] [place] [address] PCP - General 05/09/23
--- OUTSIDE RECORDS SUMMARY | 2025-04-30 09:17 | XMS_ITS | Encounter Summary ---
Author Organization Healthcare Address [address] [place] [address] Care Team Providers Care Inward Toll Operator Name Role Phone Unavailable Primary Care Provider Unavailabl e Encounter Details Date Type Department Care Team (Late st Contact Info) Description 10/19/2022 Lab Requisition [facility] [address] [place] [address] Sushil Dean MD [address] [place] [address] Encounter for general adult medical examination without [...] by MALDI tof mass spectrometry using the Viewfinity database and is for research use only. The organism value for this result has been updated. These results have been appended to the previously preliminary verified report. Bone Specimen from bone / Unknown 10/19/2022 5:17 PM EDT 10/19/2022 9:49 PM EDT Sushil Dean MD LAB MICROBIOLOGY - GENERAL O RDERABLES Final Result Performing Organization Address [facility] de Phone Number [facility]ARE [facility] [address] [place] [address] * Bone Culture and Gram Stain (10/19/2022 5:17 PM EDT) Culture No growth at day 4 2022 8:14 AM EDT [facility] Gram Stain Result Few Polymorphonuclear leukocytes 10/23/2022 8:14 AM EDT [facility] Gram Stain Result No organisms seen 10/23/2022 8:14 AM EDT [facility] Bone Specimen from bone / Unknown 10/19/2022 5:17 PM EDT 10/19/2022 9:49 PM EDT Sushil Dean MD LAB MICROBIOLOGY - GENERAL O RDERAADDI Final Result Performing Organization Address [facility] Phone Number [facility] [address] [place] [address] documented in this encounter Visit Diagnoses Diagnosis Encounter for general adult medical examination without abnormal findings documented in this encounter
--- OUTSIDE RECORDS SUMMARY | 2025-04-30 09:17 | XMS_ITS | Encounter Summary ---
Author Organization Healthcare Address [address] [place] [address] Care Team Providers Care Frog Shaker Name Role Phone Unavailable Primary Care Provider Unavailabl e Encounter Details Date Type Department Care Team (Late st Contact Info) Description 10/01/2022 Lab Requisition [facility] [address] [place] [address] Sushil Dean MD [address] [facility]. [address] [place] [address] Encounter for general adult medical examination without [...] has been identified using the FDA Approved Everstringyper CA System The organism value for this [...] 10/04/2022 2:17 PM EDT Refer to culture [id number] FOR SUSCEPTIBILITIES ON NEELIMA ALBICANS us Sushil Dean MD LAB MICROBIOLOGY - GENERAL O RDERABLES Final Result [facility] [address] [place] [address] documented in this encounter Visit Diagnoses Diagnosis Encounter for general adult medical examination without abnormal findings documented in this encounter
--- OUTSIDE RECORDS SUMMARY | 2025-04-30 09:18 | XMS_ITS | Clinical Summary ---
Author Organization Healthcare Address [address] [place] [address] Care Team Providers Care Insurance Risk Surveyor Name Role Phone Unavailable Primary Care Provider [...]
[2025-04-30 09:58] VITALS: BP 119/81; PULSE 77; RESP 18; O2SAT 97
== END 2025-04-30 23:59 | disposition home or self-care (01) ==
LOC: INF 09:04
PROVIDERS: PCP Nurse Practitioner Family; Visit Provider Internal Medicine Infectious Disease
DX: M86.9 Osteomyelitis, unspecified (principal); B95.62 Methicillin resistant Staphylococcus aureus infection as the cause of diseases classified elsewhere
CPT/HCPCS: 96365; J0878

== ENCOUNTER 2025-05-01 09:18 | Outpatient (CLI) | payer MEDICARE, SELFPAY ==
--- OUTSIDE RECORDS SUMMARY | 2023-12-12 05:00 | XMS_ITS ---
Author Organization Ayaka Address 1210 [facility] 36 [facility] 2C [place] [phone] Care Team Providers Care Licensed Clinical Psychologist Name Role Phone Zeeshan Salazar Primary Care Provider [phone] Macario Burkett [phone] REASON FOR VISIT 6 Month Check Up Encounters Encounter Location Date Provider Diagnosis [place] 1210 [facility] [address] [place] [phone] 12/12/2023 Macario Burkett Plan Of Treatment No Information Progress Notes * Won MEDRANO ZeeshanDOB: [birth year] (44 yo M)Acc No.[id number]:12/12/2023 Progress Notes Patient: Won SPANN Provider: Colleen Burkett M.D. :1980 A ge:43 Y S ex:Male Date:12/12/2023 Address:[address] [place] [address] [place] [id number] Pcp:Zeeshan Salazar Subjective: * Chief Complaints: * 1 . 6 Month Check Up. * Medical History: Objective: * Vitals: Assessment: Plan: * Treatment: * Images: Billing Information: * Visit Code: * Procedure Codes: * Electronic signature of Micaela Burkett MD on 05/01/2025 at 09:23 AM EDT Sign off status: Pending * Provider: Colleen Burkett M.D. Date: 12/12/2023 Generated for Nany jorgensen/Elaine/Pro on: 1 09:23 AM EDT
--- OUTSIDE RECORDS SUMMARY | 2025-04-04 16:10 | XMS_ITS | Encounter Summary ---
Author Organization [facility] Address [address] [place] [address] Care Team Providers Care International Sales Representative Name Role Phone Provider, No Known Primary Care Provider Unavail able Reason for Visit * Reason Comments Leg Swelling * Auth/Cert Specialty Diagnoses / Procedures Referred By Contlevy t Referred To Contact Diagnoses Right BKA infection Referral ID Status Reason Start Date Expiration Date Visits Re quested Visits Authorized [id number] 1 1 Encounter Details Date Type Department Care Team (Late st Contact Info) Description 04/04/2025 4:10 PM EDT - 04/11/2025 1:58 PM EDT Hospital Encounter [address] [place] [address] Mario Crowley, [address] [place] [address] Leonora Shepherd MD [address] [address] Jason Álvarez DO [address] [address] Jadyn Richardson DO [address] [address] Cellulitis of right lower extremity (Primary Dx); Below-knee amputation of right lower extremity, initial encounter; Right BKA infection Discharge Disposition: Home or Self Care Social History Tobacco Use Types Packs/Day Years Used Date Smoking Tobacco: Never Smokeless Tobacco: Never Tobacco Cessation:Counseling Given: Not Answered Alcohol Use Standard Drinks/Week Comments Not Currently 0 (1 standard drink = 0.6 oz pur e alcohol) [facility] Utilities Answer Date Recorded In the past 12 months has th e Immunity Project, gas, oil, or water company threatened to [...] help finding or keeping work or a mrayann b? Not on file 05/09/2023 Disabilities Answer Date Recorded Difficulty Concentrating, Remembering or Making Decisions no 04/08/2025 Difficulty Managing Errands Independently no 04/08/2025 Education Answer Date Recorded Help with school or training? Not on file Preferred Language Salvadorean 04/07/2025 Sex and Gender Information Value Date [...] 2:25 PM EDT Cherri Grimm RN * Carson Suicide Severity Rating Scale (Screener/Recent Self-Report) Question [...] from the original note were not included. [facility] DISCHARGE SUMMARY Patient Name: [...] Date/Time Wound Culture - Swab, Leg, Right [[id number]] (Abnormal) (Susceptibility) Collected: 04/07/252106 Lab Status: Final [...] Units Date/Time FL C Arm During Surgery [[id number]] Resulted: 04/07/252137 Updated: 04/07/252137 Narrative: This procedure was auto-finalized with no dictation required. MRI Tibia Fibula Right With & Without Contrast [[id number]] Collected: 04/07/25 0938 Updated: 04/07/25 1001 Narrative: [...] Buenrostro 04/07/2025 9:58 AM EDT Workstation ID: [id number] MRI Tibia Fibula Right With & Without Contrast [[id number]] Collected: 04/04/252256 Updated: 04/04/252302 Narrative: MRI TIBIA [...] represent a small area of phlegmonous change (ouppbs16 image 10) measuring approximately 1.6 cm which [...] MD 04/04/2025 11:00 PM EDT Workstation ID: [id number] Pending Labs Order Current Status Fungus Culture [...] FLOMAX 1 capsule, Nightly Stop These Medications [facility] Digestive [facility] capsule doxycycline 100 MG tablet Commonly [...] Male) Date of 1980 Social Security Number [id number] [place] [address] Yazidism Unknown Marital Status Unknown Admission Date 04/04/2025 Admission Type Emergency Admitting Provider Jadyn Richardson DO Attending Provider Jadyn Richardson DO Department, Room/Bed [address], S565/1 Discharge Date Discharge Disposition Discharge [...] Group [place] [id number] Payor Plan Address Payor Plan Phone Number Payor Plan Fax Number Effective Dates [employer] [address] [address] 08/10/2023 - None Entered [place] [address] Subscriber Name Subscriber Date Member ID WON DENNIS 1980 [id number] Emergency Contacts Timber Packer (Rel.) Home Phone Work Phone Mobile Phone Avril Dennis (Spouse) -- -- [phone] LewRobert (Relative) -- -- [phone] [facility] [address] Patient: ROOM: [facility] Won Dennis [address] [facility] [address] : 1980 SSN: [id number] Sex: M PCP: Provider, No Known Emergency Contact Information Name Relation Home Work Mobile Avril Dennis Spouse [phone] Other Contacts Name Relation Home Work Mobile Robert Hackett Relative [phone] INSURANCE PA[employer]OR [employer]AN [employer] # SUBSCRIBER ID Primary: Secondary: MEDICARE [employer]ICA[place] [id number] Admitting Diagnosis: 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] Order Date: Apr 09, 2025 Case Management Residential Housekeeper Consult (Order ID: [id number]) Diagnosis: Priority: Routine Expected Date: Expiration Date: Interval: Once Count: Comments: Outpatient orders: 1. Outpatient intravenous antibiotic therapy: Daptomycin 800 mg IV daily to be supplied by [facility] 2. Home health to perform [...] INFECTIOUS DISEASE Progress Note Won Dennis 1980 [id number] Date of Consult: 04/10/2025 Admission Date: 04/04/2025 [...] which prompted him to seek treatment at [facility]. He is known to Dr. [...] HDS, on Heparin gtt. Currently [facility] has been asked to manage the [...] Jr., MD, 20 mg at 04/09/25906 heparin 28858 units/250 mL (100 units/mL) in 0.45 % [...] Units Date/Time FL C Arm During Surgery [[id number]] Resulted: 04/07/252137 Updated: 04/07/252137 Narrative: This procedure was auto-finalized with no dictation required. MRI Tibia Fibula Right With & Without Contrast [[id number]] Collected: 04/07/25 0938 Updated: 04/07/25 1001 Narrative: [...] Chitra 04/07/2025 9:58 AM EDT Workstation ID: [id number] Impression: Recurrent Right BKA stump abscess/cellulitis- this [...] discussed his disposition with the pharmacist at [facility] today. I will sign off Outpatient orders: 1. Outpatient intravenous antibiotic therapy: Daptomycin 800 mg IV daily to be supplied by [facility] 2. Home health to perform weekly PICC [...] patient. Carlton Mead MD 04/10/2025 07:38 Rosario aTn APRN Nurse Practitioner Hospitalist Progress Notes Signed Date of Service: 04/10/251323 Creation Time: 04/10/251323 Signed Expand All Collapse All [facility] PROGRESS NOTE Patient Name: [...] Date/Time Wound Culture - Swab, Leg, Right [[id number]] (Abnormal) (Susceptibility) Collected: 04/07/252106 Lab Status: Final [...] Row Name 04/06/25 1143 Sit-Stand Transfer Sit-Stand Stanly (Transfers) modified independence -LM Comment, (Sit-Stand Transfer) Pt stood from recliner. Not holding onto walker, pt able to pull his pants up while balancing on his one leg. -LM Row Name 04/06/25 1143 Gait/Stairs (Locomotion) Stan[place] Level (Gait) modified independence -LM Distance in [...] Nurse Physical Therapy Education Title: PT OT CALL CENTER PROFESSIONAL Therapies (Done) Topic: Physical Therapy (Done) Point: [...] Description Service Date Service Provider Modifiers Qty [id number] PT EVAL LOW COMPLEXITY 3 04/06/2025 Susan [...] mg Daily 04/05/2025 -- Route: Oral heparin 94138 units/250 mL (100 units/mL) in 0.45 % [...] -- Admin Instructions: Open Order & Select [facility] Electrolyte Replacement Protocol Algorithm to View Details [...] Dean MD April 21 vs April 22 [facility] [address], [address] [facility], [address] Please schedule at [phone] VONDA Garcia 04/11/25 08:32 EDT Cosigned by Sushil Dean Jr., MD at 04/19/2025 10:33 AM EDT Associated attestation - Sushil Dean Jr., MD - 04/19/2025 10:33 AM EDT I have reviewed this documentation and agree. * Rosario Hill APRN - 04/10/2025 1:24 PM EDT Images from the original note were not included. [facility] PROGRESS NOTE Patient Name: [...] Date/Time Wound Culture - Swab, Leg, Right [[id number]] (Abnormal) (Susceptibility) Collected: 04/07/252106 Lab Status: Final [...] mg Daily 04/05/2025 -- Route: Oral heparin 90700 units/250 mL (100 units/mL) in 0.45 % [...] -- Admin Instructions: Open Order & Select [facility] Electrolyte Replacement Protocol Algorithm to View Details [...] -- Admin Instructions: Open Order & Select [facility] Electrolyte Replacement Protocol Algorithm to View Details [...] -- Admin Instructions: Open Order & Select [facility] Electrolyte Replacement Protocol Algorithm to View Details [...] Dean MD April 21 vs April 22 [facility] [address], [address] [facility], [address] Please schedule at [phone] VONDA Garcia 04/10/25 09:01 EDT Cosigned by Sushil Dean Jr., MD at 04/19/2025 10:33 AM EDT Associated attestation - Sushil Dean Jr., MD - 04/19/2025 10:33 AM EDT I have reviewed this documentation and agree. * Carlton Mead MD - 04/10/2025 7:38 AM EDT Images from the original note were not included. INFECTIOUS DISEASE Progress Note Won Dennis 1980 [id number] Date of Consult: 04/10/2025 Admission Date: 04/04/2025 [...] which prompted him to seek treatment at [facility]. He is known to Dr. [...] HDS, on Heparin gtt. Currently [facility] has been asked to manage the [...] Jr., MD, 20 mg at 04/09/25906 heparin 34148 units/250 mL (100 units/mL) in 0.45 % [...] vancomycin 2750 mg/500 mL 0.9% NS IVPB ([facility]) Ordering Provider: Mario Crowley, DO 20 mg/kg [...] Units Date/Time FL C Arm During Surgery [[id number]] Resulted: 04/07/252137 Updated: 04/07/252137 Narrative: This procedure was auto-finalized with no dictation required. MRI Tibia Fibula Right With & Without Contrast [[id number]] Collected: 04/07/25 0938 Updated: 04/07/25 1001 Narrative: [...] Buenrostro 04/07/2025 9:58 AM EDT Workstation ID: [id number] Impression: Recurrent Right BKA stump abscess/cellulitis- this [...] discussed his disposition with the pharmacist at [facility] today. I will sign off Outpatient orders: 1. Outpatient intravenous antibiotic therapy: Daptomycin 800 mg IV daily to be supplied by [facility] 2. Home health to perform weekly PICC [...] Yaya Hamiltonn, [facility] - 04/10/2025 7:17 AM EDT Pharmacy to [...] from the original note were not included. [facility] PROGRESS NOTE Patient Name: [...] Date/Time Wound Culture - Swab, Leg, Right [[id number]] (Abnormal) Collected: 04/07/252106 Lab Status: Preliminary result [...] Larisa Hamilton [facility] - 04/09/2025 11:36 AM EDT Pharmacy to [...] mg Daily 04/05/2025 -- Route: Oral heparin 88339 units/250 mL (100 units/mL) in 0.45 % [...] -- Admin Instructions: Open Order & Select [facility] Electrolyte Replacement Protocol Algorithm to View Details [...] -- Admin Instructions: Open Order & Select [facility] Electrolyte Replacement Protocol Algorithm to View Details [...] -- Admin Instructions: Open Order & Select [facility] Electrolyte Replacement Protocol Algorithm to View Details [...] in 2 weeks for incision check, radiographs [facility] [address], [address] [facility], [address] Please schedule at [phone] VONDA Garcia 04/09/25 09:18 EDT Cosigned by Sushil Dean Jr., MD at 04/19/2025 10:33 AM EDT Associated attestation - Sushil Dean Jr., MD - 04/19/2025 10:33 AM EDT I have reviewed this documentation and agree. * Carlton Mead MD - 04/09/2025 8:25 AM EDT Images from the original note were not included. INFECTIOUS DISEASE Progress Note Won Dennis 1980 [id number] Date of Consult: 04/09/2025 Admission Date: 04/04/2025 [...] which prompted him to seek treatment at [facility]. He is known to Dr. [...] HDS, on Heparin gtt. Currently [facility] has been asked to manage the [...] IRRIGATION; Surgeon: Sushil Dean Jr., MD; Location: [facility] OR; Service: Orthopedics; Laterality: Right; PLACEMENT OF WOUND VAC Right 04/07/2025 Procedure: WOUND VACUUM ASSISTED CLOSURE; Surgeon: Sushil Dean Jr., MD; Location: [facility] OR; Service: Orthopedics; Laterality: Right; History reviewed. [...] MD, 20 mg at 04/08/25 0800 heparin 14497 units/250 mL (100 units/mL) in 0.45 % [...] 500 mL Status: Discontinued Ordering Provider: Una Pelra, PharmD 1,500 mg 333.3 mL/hr over 90 [...] Units Date/Time FL C Arm During Surgery [[id number]] Resulted: 04/07/252137 Updated: 04/07/252137 Narrative: This procedure was auto-finalized with no dictation required. MRI Tibia Fibula Right With & Without Contrast [[id number]] Collected: 04/07/2538 Updated: 04/07/25 1001 Narrative: MRI [...] Buenrostro 04/07/2025 9:58 AM EDT Workstation ID: [id number] Impression: Recurrent Right BKA stump abscess/cellulitis- this [...] mg IV daily to be supplied by [facility] 2. Home health to perform [...] from the original note were not included. [facility] PROGRESS NOTE Patient Name: [...] Buenrostro 04/07/2025 9:58 AM EDT Workstation ID: [id number] I have personally reviewed the therapy plans: [...] Larisa Hamilton [facility] - 04/08/2025 11:48 AM EDT Pharmacy to [...] -- Admin Instructions: Open Order & Select [facility] Electrolyte Replacement Protocol Algorithm to View Details [...] mg Daily 04/05/2025 -- Route: Oral heparin 55700 units/250 mL (100 units/mL) in 0.45 % [...] -- Admin Instructions: Open Order & Select [facility] Electrolyte Replacement Protocol Algorithm to View Details [...] -- Admin Instructions: Open Order & Select [facility] Electrolyte Replacement Protocol Algorithm to View Details [...] -- Admin Instructions: Open Order & Select [facility] Electrolyte Replacement Protocol Algorithm to View Details [...] INFECTIOUS DISEASE Progress Note Won Dennis 1980 [id number] Date of Consult: 04/08/2025 Admission Date: 04/04/2025 [...] which prompted him to seek treatment at [facility]. He is known to Dr. [...] HDS, on Heparin gtt. Currently [facility] has been asked to manage the [...] IRRIGATION; Surgeon: Sushil Dean Jr., MD; Location: [facility] OR; Service: Orthopedics; Laterality: Right; PLACEMENT OF WOUND VAC Right 04/07/2025 Procedure: WOUND VACUUM ASSISTED CLOSURE; Surgeon: Sushil Dean Jr., MD; Location: [facility] OR; Service: Orthopedics; Laterality: Right; History reviewed. [...] Jr., MD, 20 mg at 04/07/25950 heparin 41237 units/250 mL (100 units/mL) in 0.45 % [...] Units Date/Time FL C Arm During Surgery [[id number]] Resulted: 04/07/252137 Updated: 04/07/252137 Narrative: This procedure was auto-finalized with no dictation required. MRI Tibia Fibula Right With & Without Contrast [[id number]] Collected: 04/07/2538 Updated: 04/07/25 1001 Narrative: MRI [...] Buenrostro 04/07/2025 9:58 AM EDT Workstation ID: [id number] Impression: 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 (Treated by ID in [place] Dr. Harris). Dr. Torres treated him with [...] from the original note were not included. [facility] PROGRESS NOTE Patient Name: [...] Buenrostro 04/07/2025 9:58 AM EDT Workstation ID: [id number] I have personally reviewed the therapy plans: [...] Larisa Hamilton [facility] - 04/07/2025 11:56 AM EDT Pharmacy to [...] INFECTIOUS DISEASE Progress Note Won Dennis 1980 [id number] Date of Consult: 04/07/2025 Admission Date: 04/04/2025 [...] which prompted him to seek treatment at [facility]. He is known to Dr. [...] HDS, on Heparin gtt. Currently [facility] has been asked to manage the [...] Application, 1 Application, Topical, Q12H, Ayah Valentin, SUPERVISOR LAST MODEL DEPARTMENT, 1 Application at 04/06/252101 DAPTOmycin (CUBICIN) 800 [...] Shepherd MD, 20 mg at 04/06/25899 heparin 03404 units/250 mL (100 units/mL) in 0.45 % NaCl infusion, 18 Units/kg/hr, Intravenous, Titrated, Cherri Beatty, [facility], Last Rate: 24.1 mL/hr at 04/07/258, 18 [...] With & Without Contrast - In process [[id number]] Resulted: 04/07/25828 Updated: 04/07/25828 This result has not been signed. Information might be incomplete. 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 (Treated by ID in [place] Dr. Harris). Dr. Torres treated him with [...] mg Daily 04/05/2025 -- Route: Oral heparin 92078 units/250 mL (100 units/mL) in 0.45 % [...] -- Admin Instructions: Open Order & Select [facility] Electrolyte Replacement Protocol Algorithm to View Details [...] -- Admin Instructions: Open Order & Select [facility] Electrolyte Replacement Protocol Algorithm to View Details [...] Cherri Beatty [facility] - 04/06/2025 1:47 PM EDT Pharmacy to [...] from the original note were not included. [facility] PROGRESS NOTE Patient Name: [...] MD 04/04/2025 11:00 PM EDT Workstation ID: [id number] I have personally reviewed the therapy plans: [...] mg Daily 04/05/2025 -- Route: Oral heparin 38029 units/250 mL (100 units/mL) in 0.45 % [...] -- Admin Instructions: Open Order & Select [facility] Electrolyte Replacement Protocol Algorithm to View Details [...] INFECTIOUS DISEASE follow up. Won Dennis 1980 [id number] Date of Consult: 04/06/2025 Admission Date: 04/04/2025 [...] which prompted him to seek treatment at [facility]. He is known to Dr. [...] HDS, on Heparin gtt. Currently [facility] has been asked to manage the [...] Application, 1 Application, Topical, Q12H, Ayah Valentin, SUPERVISOR LAST MODEL DEPARTMENT, 1 Application at 04/06/25 0859 DAPTOmycin (CUBICIN) [...] MD, 20 mg at 04/06/25 0900 heparin 72100 units/250 mL (100 units/mL) in 0.45 % NaCl infusion, 18 Units/kg/hr, Intravenous, Titrated, Cherri Beatty [facility], Last Rate: 24.1 mL/hr at 04/06/25 1420, [...] Tibia Fibula Right With & Without Contrast [[id number]] Collected: 04/04/252256 Updated: 04/04/252302 Narrative: MRI TIBIA [...] MD 04/04/2025 11:00 PM EDT Workstation ID: [id number] Impression: 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 (Treated by ID in [place] Dr. Harris). Dr. Torres treated him with [...] Cherri Beatty, [facility] - 04/05/2025 3:01 PM EDT Pharmacy to [...] from the original note were not included. [facility] PROGRESS NOTE Patient Name: [...] MD 04/04/2025 11:00 PM EDT Workstation ID: [id number] I have personally reviewed the therapy plans: [...] from the original note were not included. [facility] HISTORY AND PHYSICAL Patient [...] MD 04/04/2025 11:00 PM EDT Workstation ID: [id number] Assessment & Plan Assessment & Plan Won [...] 4FR PICC placed by Rhoda Bonner RN [facility], tip verified by 3CG see LDA. * Sushil Dean Jr., MD - 04/05/2025 8:07 AM EDTAssociated Order(s): IP CONSULT TO ORTHOPEDIC SURGERY [facility], [facility] [address] [place] [address] Orthopedic Consult Patient: Won Dennis Date of Admission: 04/04/2025 4:10 PM Date of : 1980 Attending Physician: Jason Álvarez DO Consulting Physician: Sushil Dean Jr, MD Chief Complaint: 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 male admitted to [facility] with 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]. [...] was evaluated in the emergency department in [place], was discharged with instructions for follow-up. He [...] tablet by mouth Daily. 04/03/2025 Morning Lactobacillus-Inulin ([facility] Cruise Compare) capsule Take 200 mg by mouth Daily. [...] MD 04/04/2025 11:00 PM EDT Workstation ID: [id number] Assessment: Right BKA infection 44-year-old male with [...] DISEASE CONSULT/INITIAL HOSPITAL VISIT Won Dennis 1980 [id number] Date of Consult: 04/05/2025 Admission Date: 04/04/2025 [...] which prompted him to seek treatment at [facility]. He is known to Dr. [...] HDS, on Heparin gtt. Currently [facility] has been asked to manage the [...] Leonora Shepherd MD, 40 mg at 04/04/25 0529 sennosides-docusate (PERICOLACE) 8.6-50 MG per tablet 2 [...] MD, 20 mg at 04/05/25 0916 heparin 64261 units/250 mL (100 units/mL) in 0.45 % [...] / BPA Driven Protocol, , Not Applicable, PRNJaoo Laurie, MD Potassium Replacement - Follow Nurse [...] Tibia Fibula Right With & Without Contrast [[id number]] Collected: 04/04/252256 Updated: 04/04/252302 Narrative: MRI TIBIA [...] represent a small area of phlegmonous change (ywweoc75 image 10) measuring approximately 1.6 cm which [...] MD 04/04/2025 11:00 PM EDT Workstation ID: [id number] Impression: 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 (Treated by ID in [place] Dr. Harris). Dr. Torres treated him with [...] Jr., MD - 04/08/2025 3:51 PM EDT [facility] OPERATIVE REPORT PATIENT NAME: Won Dennis DATE OF : 1980 PREOP DIAGNOSIS: Right Right below-knee amputation infection POSTOP DIAGNOSIS: Same. PROCEDURE: Right Right 38489: Secondary closure below-knee amputation SURGEON: Sushil Dean MD OPERATIVE TEAM: Network Engineering Advisor: Susi Grullon RN Scrub Person: Mary Paredes Scrub Person Extra: Hortencia Toribio Other: Katt Gotti RN; Charis Neville RN ANESTHETIST: Anesthesiologist: Ulises Hoffman MD ARRT TECHNOLOGIST: Stan Casillas CRNA Student Nurse Logistics Administrator: Karol Albert SRNA ANESTHESIA: Choice ESTIMATED BLOOD [...] CULTURE (Canceled) Sushil Dean Jr., MD 04/08/25 7617 Description: RIGHT LEG DEEP WOUND FOR CULTURE [...] Jr., MD - 04/07/2025 9:03 PM EDT [facility] [address] [address] OPERATIVE REPORT PATIENT NAME: Won Dennis DATE OF : 1980 PREOP DIAGNOSIS: Right Right below knee amputation stump infection POSTOP DIAGNOSIS: Same. PROCEDURE: Right Right 00608: Incision and drainage of surgical site infection 71502: Debridement of skin, subcutaneous tissue, muscle 15327: Wound vacuum-assisted closure SURGEON: Sushil Dean MD OPERATIVE TEAM: Network Engineering Advisor: Anum Sanchez RN Scrub Person: Hortencia Toribio; Gerald Ivey POTATO BUCKER: Anesthesiologist: Luci Alonso DO ANESTHESIA: General ESTIMATED [...] ago swellling of the area. seen at [facility] yesterday for CT and US, [...] this chart in the absence of a leach cell operator. No orders to display RADIOLOGY: [x] Radiologist's [...] 04/11/2025 1:30 PM EDT Continued Stay Note [place] Patient Name: Won Dennis Today's Date: 04/11/2025 Admit Date: 04/04/2025 Plan: Home with outpatient infusion. Discharge Plan Row Name 04/11/25 1155 Plan Plan Home with outpatient infusion. Final Discharge Disposition Code 01 - home or self-care Final Note Patient discharging today. He is discharging home with outpatient infusion at [facility]. He has an appointment with [facility] at 8:00 am tomorrow. They will do PICC line dressing changes. DEBRA has spoke with Dena at [facility] today multiple times to get setup [...] to get IV ABX at home with [facility]; however, Medicaid lapsed on 04/08. DEBRA was unaware until this morning that Medicaid has lapsed. Patient explained that he has Medicare A and B. CM spoke with KELLEE and given themhis Medicare number [id number], she sent it to Admission. DEBRA spoke with Kerri, with [facility], and explained that he had Medicare A and B. However, it will not cover home infusion. It will be $64.00 a day out of packet. Patients can go to the Infusion center at [facility], and it will cover the cost as an outpatient. He will need to go there every day for infusion. They will be able to do the patients' PICC line dressing changes and lab work. CM called [facility] infusion center they can accept patient and start him. He is known for their facility. The Facility will need to run it through his insurance first. CM faxed the orders over to [facility] at [phone]. CM will follow up with them tomorrow at [facility] to make sure they received the [...] with patient at bedside today[facility] Patient getting PICC line [...] note were not included. Discharge Planning Assessment [place] Patient Name: Won Dennis Today's Date: 04/07/2025 [...] with family Patient/Family Anticipated Services at Transition counseling case managercattle manager Anticipated family or friend will provide Discharge Needs Assessment Equipment Currently Used at Home glucometer;shower chair;pulse ox;bp cuff;prosthesis;crutches Equipment Needed After Discharge none Discharge Plan Row Name 04/07/25 1144 Plan Plan Home Patient/Family in Agreement with Plan yes Plan Comments CM spoke with patient at bedside today. Patient lives with and his 5 kids in [place] [facility]. 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 He has walker, cane, shower chair, and crutches. He requested a wheelchair for home. CM will order wheelchair through [employer]. He is not current with home health services. PCP is Dr. Jordan. Insurance is [facility] Medicaid [place]. Patient discharge plan is home with priavte transport. CM will follow for any discharge needs. Final Discharge Disposition Code 01 - home or self-care Continued Care and Services - Admitted Since 04/04/2025 No active coordination exists. Demographic Summary Row Name 04/07/25 1143 General Information Arrived From hospital Preferred Language Salvadorean Functional Status Row Name 04/07/25 1143 Functional [...] 3:4 0 PM EDT Right BKA infection CT SEC ABDOMINAL WALL SUTURE EVISCERATION/DEHSN 04/08/2025 3:20 [...] CBC Auto Differential (04/11/2025 3:40 AM EDT) [facility] WBC 7.87 3.40 - 10.80 10*3/mm3 04/11/2025 4:02 AM EDT [facility] RBC 4.70 4.14 - 5.80 10*6/mm3 04/11/2025 4:02 AM EDT [facility] Hemoglobin 12.8(L) 13.0 - 17.7 g/dL 04/11/2025 4:02 AM EDT [facility] Hematocrit 40.5 37.5 - 51.0 % 04/11/2025 4:02 AM EDT [facility] MCV 86.2 79.0 - 97.0 fL 04/11/2025 4:02 AM EDT [facility] MCH 27.2 26.6 - 33.0 pg 04/11/2025 4:02 AM EDT [facility] MCHC 31.6 31.5 - 35.7 g/dL 04/11/2025 4:02 AM EDT [facility] RDW 12.9 12.3 - 15.4 % 04/11/2025 4:02 AM EDT [facility] RDW-SD 40.5 37.0 - 54.0 fl 04/11/2025 4:02 AM EDT [facility] MPV 9.2 6.0 - 12.0 fL 04/11/2025 4:02 AM EDT [facility] Platelets 267 140 - 450 10*3/mm3 04/11/2025 4:02 AM [facility] Neutrophil % 59.5 42.7 - 76.0 % 04/11/2025 4:02 AM [facility] Lymphocyte % 26.3 19.6 - 45.3 % 04/11/2025 4:02 AM [facility] Monocyte % 9.3 5.0 - 12.0 % 04/11/2025 4:02 AM [facility] Eosinophil % 4.1 0.3 - 6.2 % 04/11/2025 4:02 AM [facility] Basophil % 0.4 0.0 - 1.5 % 04/11/2025 4:02 AM [facility] Immature Grans % 0.4 0.0 - 0.5 % 04/11/2025 4:02 AM [facility] Neutrophils, Absolute 4.69 1.70 - 7.00 10*3/mm3 04/11/2025 4:02 AM [facility] Lymphocytes, Absolute 2.07 0.70 - 3.10 10*3/mm3 04/11/2025 4:02 AM [facility] Monocytes, Absolute 0.73 0.10 - 0.90 10*3/mm3 04/11/2025 4:02 AM [facility] Eosinophils, Absolute 0.32 0.00 - 0.40 10*3/mm3 04/11/2025 4:02 AM [facility] Basophils, Absolute 0.03 0.00 - 0.20 10*3/mm3 04/11/2025 4:02 AM [facility] Immature Grans, Absolute 0.03 0.00 - 0.05 10*3/mm3 04/11/2025 4:02 AM [facility] nRBC 0.0 0.0 - 0.2 /100 WBC 04/11/2025 4:02 AM [facility] Blood Venipuncture / Unknown 04/11/2025 3:40 AM EDT 04/11/2025 3:59 AM EDT us Sushil Dean Jr., MD LAB BLOOD ORDERABLES Fi nal Result [facility]
[address] [place] [address], * (ABNORMAL) Comprehensive Metabolic Panel (04/11/2025 3:40 AM EDT) Glucose 108(H) 65 - 99 mg/dL 04/11/2025 4:19 AM EDT [facility] BUN 12.5 6.0 - 20.0 mg/dL 04/11/2025 4:19 AM EDT [facility] Creatinine 0.68(L) 0.76 - 1.27 mg/dL 04/11/2025 4:19 AM EDT [facility] Sodium 140 136 - 145 mmol/L 04/11/2025 4:19 AM EDT [facility] Potassium 3.8 3.5 - 5.2 mmol/L 04/11/2025 4:19 AM EDT [facility] Chloride 105 98 - 107 mmol/L 04/11/2025 4:19 AM EDT [facility] CO2 28.2 22.0 - 29.0 mmol/L 04/11/2025 4:19 AM EDT [facility] Calcium 8.2(L) 8.6 - 10.5 mg/dL 04/11/2025 4:19 AM EDT [facility] Total Protein 6.1 6.0 - 8.5 g/dL 04/11/2025 4:19 AM EDT [facility] Albumin 3.1(L) 3.5 - 5.2 g/dL 04/11/2025 4:19 AM EDT [facility] ALT (SGPT) 52(H) 1 - 41 U/L 04/11/2025 4:19 AM EDT [facility] AST (SGOT) 40 1 - 40 U/L 04/11/2025 4:19 AM EDT [facility] Alkaline Phosphatase 99 39 - 117 U/L 04/11/2025 4:19 AM EDT [facility] Total Bilirubin 0.2 0.0 - 1.2 mg/dL 04/11/2025 4:19 AM EDT [facility] Globulin 3.0 gm/dL 04/11/2025 4:19 AM EDT [facility] Comment:Calculated Result A/G Ratio 1.0 g/dL 04/11/2025 4:19 AM EDT [facility] BUN/Creatinine Ratio 18.4 7.0 - 25.0 04/11/2025 4:19 AM EDT [facility] Anion Gap 6.8 5.0 - 15.0 mmol/L 04/11/2025 4:19 AM EDT [facility] eGFR 117.5 >60.0 mL/min/1.7 3 04/11/2025 4:19 AM EDT [facility] Blood Venipuncture / Unknown 04/11/2025 3:40 AM EDT 04/11/2025 3:56 AM EDT [facility] - 04/11/2025 4:19 AM EDT [...] Hill APRN LAB BLOOD ORDERABLES Final Result [facility]
[address] [place] [address], * (ABNORMAL) CBC Auto Differential (04/10/2025 3:46 AM EDT) [facility] WBC 9.60 3.40 - 10.80 10*3/mm3 04/10/2025 3:56 AM EDT [facility] RBC 4.67 4.14 - 5.80 10*6/mm3 04/10/2025 3:56 [facility] Hemoglobin 12.9(L) 13.0 - 17.7 g/dL 04/10/2025 3:56 AM EDT [facility] Hematocrit 40.1 37.5 - 51.0 % 04/10/2025 3:56 [facility] MCV 85.9 79.0 - 97.0 fL 04/10/2025 3:56 [facility] MCH 27.6 26.6 - 33.0 pg 04/10/2025 3:56 AM [facility] MCHC 32.2 31.5 - 35.7 g/dL 04/10/2025 3:56 [facility] RDW 12.9 12.3 - 15.4 % 04/10/2025 3:56 AM [facility] RDW-SD 40.5 37.0 - 54.0 fl 04/10/2025 3:56 AM [facility] MPV 9.5 6.0 - 12.0 fL 04/10/2025 3:56 AM [facility] Platelets 227 140 - 450 10*3/mm3 04/10/2025 3:56 AM EDT [facility] Neutrophil % 59.1 42.7 - 76.0 % 04/10/2025 3:56 [facility] Lymphocyte % 29.0 19.6 - 45.3 % 04/10/2025 3:56 [facility] Monocyte % 8.1 5.0 - 12.0 % 04/10/2025 3:56 [facility] Eosinophil % 3.2 0.3 - 6.2 % 04/10/2025 3:56 AM EDT [facility] Basophil % 0.4 0.0 - 1.5 % 04/10/2025 3:56 AM EDT [facility] Immature Grans % 0.2 0.0 - 0.5 % 04/10/2025 3:56 AM EDT [facility] Neutrophils, Absolute 5.67 1.70 - 7.00 10*3/mm3 04/10/2025 3:56 AM EDT [facility] Lymphocytes, Absolute 2.78 0.70 - 3.10 10*3/mm3 04/10/2025 3:56 AM EDT [facility] Monocytes, Absolute 0.78 0.10 - 0.90 10*3/mm3 04/10/2025 3:56 AM EDT [facility] Eosinophils, Absolute 0.31 0.00 - 0.40 10*3/mm3 04/10/2025 3:56 AM EDT [facility] Basophils, Absolute 0.04 0.00 - 0.20 10*3/mm3 04/10/2025 3:56 AM EDT [facility] Immature Grans, Absolute 0.02 0.00 - 0.05 10*3/mm3 04/10/2025 3:56 AM EDT [facility] nRBC 0.0 0.0 - 0.2 /100 WBC 04/10/2025 3:56 AM EDT [facility] Blood Venipuncture / Unknown 04/10/2025 3:46 AM EDT 04/10/2025 3:53 AM EDT Jason Álvarez DO LAB BLOOD ORDERABLES Final Resul t [facility]
[address] [place] [address], * (ABNORMAL) Basic Metabolic Panel (04/10/2025 3:46 AM EDT) [facility] Glucose 125(H) 65 - 99 mg/dL 04/10/2025 4:20 AM EDT [facility] BUN 15.9 6.0 - 20.0 mg/dL 04/10/2025 4:20 AM T [facility] Creatinine 0.77 0.76 - 1.27 mg/dL 04/10/2025 4:20 AM T [facility] Sodium 137 136 - 145 mmol/L 04/10/2025 4:20 AM [facility] Potassium 3.9 3.5 - 5.2 mmol/L 04/10/2025 4:20 AM EDT [facility] Chloride 102 98 - 107 mmol/L 04/10/2025 4:20 AM EDT [facility] CO2 26.9 22.0 - 29.0 mmol/L 04/10/2025 4:20 AM [facility] Calcium 7.9(L) 8.6 - 10.5 mg/dL 04/10/2025 4:20 AM [facility] BUN/Creatinine Ratio 20.6 7.0 - 25.0 04/10/2025 4:20 AM [facility] Anion Gap 8.1 5.0 - 15.0 mmol/L 04/10/2025 4:20 AM [facility] eGFR 113.2 >60.0 mL/min/1.7 3 04/10/2025 4:20 AM [facility] Blood Venipuncture / Unknown 04/10/2025 3:46 AM EDT 04/10/2025 3:52 AM EDT [facility] - 04/10/2025 4:20 AM EDT [...] DO LAB BLOOD ORDERABLES Final Resul t [facility]
[address] [place] [address], * Heparin Anti-Xa (04/10/2025 3:46 AM EDT) Heparin Anti-Xa (UFH) 0.35 0.30 - 0.70 IU/ml 04/10/2025 4:23 AM EDT [facility] Blood Venipuncture / Unknown 04/10/2025 3:46 AM EDT 04/10/2025 3:53 AM EDT [facility] LAB BLOOD ORDERABLES Final R esult Performing Organization Address City/[facility]/ZIP Co de Phone Number [facility]
[address] [place] [address], * Heparin Anti-Xa (04/09/2025 10:05 AM EDT) Heparin Anti-Xa (UFH) 0.36 0.30 - 0.70 IU/ml 04/09/2025 11:12 AM EDT [facility] Blood Venipuncture / Unknown 04/09/2025 10:05 AM EDT 04/09/2025 10:[address] [facility] LAB BLOOD ORDERABLES Final R esult [facility]
[address] [place] [address], * (ABNORMAL) CBC Auto Differential (04/09/2025 4:18 AM EDT) WBC 11.00(H) 3.40 - 10.80 10*3/mm3 04/09/2025 4:50 AM [facility] RBC 4.70 4.14 - 5.80 10*6/mm3 04/09/2025 4:50 AM EDT [facility] Hemoglobin 13.0 13.0 - 17.7 g/dL 04/09/2025 4:50 AM EDT [facility] Hematocrit 40.4 37.5 - 51.0 % 04/09/2025 4:50 AM EDT [facility] MCV 86.0 79.0 - 97.0 fL 04/09/2025 4:50 AM EDT [facility] MCH 27.7 26.6 - 33.0 pg 04/09/2025 4:50 [facility] MCHC 32.2 31.5 - 35.7 g/dL 04/09/2025 4:50 [facility] RDW 12.8 12.3 - 15.4 % 04/09/2025 4:50 [facility] RDW-SD 39.9 37.0 - 54.0 fl 04/09/2025 4:50 AM [facility] MPV 10.0 6.0 - 12.0 fL 04/09/2025 4:50 AM [facility] Platelets 211 140 - 450 10*3/mm3 04/09/2025 4:50 [facility] Neutrophil % 74.8 42.7 - 76.0 % 04/09/2025 4:50 AM EDT [facility] Lymphocyte % 15.4(L) 19.6 - 45.3 % 04/09/2025 4:50 AM EDT [facility] Monocyte % 8.5 5.0 - 12.0 % 04/09/2025 4:50 AM EDT [facility] Eosinophil % 0.6 0.3 - 6.2 % 04/09/2025 4:50 [facility] Basophil % 0.4 0.0 - 1.5 % 04/09/2025 4:50 AM EDT [facility] Immature Grans % 0.3 0.0 - 0.5 % 04/09/2025 4:50 AM EDT [facility] Neutrophils, Absolute 8.23(H) 1.70 - 7.00 10*3/mm3 04/09/2025 4:50 AM EDT [facility] Lymphocytes, Absolute 1.69 0.70 - 3.10 10*3/mm3 04/09/2025 4:50 AM EDT [facility] Monocytes, Absolute 0.94(H) 0.10 - 0.90 10*3/mm3 04/09/2025 4:50 AM EDT [facility] Eosinophils, Absolute 0.07 0.00 - 0.40 10*3/mm3 04/09/2025 4:50 AM EDT [facility] Basophils, Absolute 0.04 0.00 - 0.20 10*3/mm3 04/09/2025 4:50 AM EDT [facility] Immature Grans, Absolute 0.03 0.00 - 0.05 10*3/mm3 04/09/2025 4:50 AM EDT [facility] nRBC 0.0 0.0 - 0.2 /100 WBC 04/09/2025 4:50 AM EDT [facility] Blood Venipuncture / Unknown 04/09/2025 4:18 AM EDT 04/09/2025 4:31 AM EDT Sushil Dean Jr., MD LAB BLOOD ORDERABLES Fi nal Result [facility]
[address] [place] [address], * Heparin Anti-Xa (04/09/2025 4:18 AM EDT) Heparin Anti-Xa (UFH) 0.41 0.30 - 0.70 IU/ml 04/09/2025 4:53 AM EDT [facility] Blood Venipuncture / Unknown 04/09/2025 4:18 AM EDT 04/09/2025 4:31 AM EDT Una Wheeleroy PharmD LAB BLOOD ORDERABLES Final R esult [facility]
[address] [place] [address], * (ABNORMAL) Basic Metabolic Panel (04/09/2025 4:18 AM EDT) Pathologist [facility] Glucose 147(H) 65 - 99 mg/dL 04/09/2025 5:33 AM EDT [facility] BUN 23.0(H) 6.0 - 20.0 mg/dL 04/09/2025 5:33 AM EDT [facility] Creatinine 1.15 0.76 - 1.27 mg/dL 04/09/2025 5:33 AM EDT [facility] Sodium 135(L) 136 - 145 mmol/L 04/09/2025 5:33 AM EDT [facility] Potassium 4.2 3.5 - 5.2 mmol/L 04/09/2025 5:33 AM EDT [facility] Chloride 100 98 - 107 mmol/L 04/09/2025 5:33 AM EDT [facility] CO2 26.0 22.0 - 29.0 mmol/L 04/09/2025 5:33 AM EDT [facility] Calcium 8.2(L) 8.6 - 10.5 mg/dL 04/09/2025 5:33 AM EDT [facility] BUN/Creatinine Ratio 20.0 7.0 - 25.0 04/09/2025 5:33 AM EDT [facility] Anion Gap 9.0 5.0 - 15.0 mmol/L 04/09/2025 5:33 AM EDT [facility] eGFR 80.5 >60.0 mL/min/1.7 3 04/09/2025 5:33 AM EDT [facility] Blood Venipuncture / Unknown 04/09/2025 4:18 AM EDT 04/09/2025 4:29 AM EDT Narrative [facility] - 04/09/2025 5:33 AM EDT [...] ORDERABLES Fi nal Result Performing Organization Address [facility] Co de Phone Number [facility]
[address] [place] [address], * Wound Culture - Swab, Leg, Right (04/08/2025 3:40 PM EDT) Wound Culture No growth at 3 days ALIZA 04/11/2025 10:40 AM EDT [facility] Gram Stain Few (2+) WBCs seen 04/11/2025 10:40 AM EDT [facility] Gram Stain No organisms seen 04/11/2025 10:40 AM EDT [facility] Swab Structure of right lower limb / Unknown 04/08/2025 3:40 PM EDT 04/08/2025 8:05 PM EDT Sushil Dean Jr., MD MICROBIOLOGY - GENERAL ORDERABLES Final Result Performing Organization Address City/[facility]/ZIP Co de Phone Number [facility]
[address] [place] [phone], [facility]
[address] [place] [address], * Anaerobic Culture - Swab, Leg, Right (04/08/2025 3:40 PM EDT) Pathologist [facility] Anaerobic Culture No anaerobes isolated at 5 days ALIZA 04/13/2025 7:24 AM EDT [facility] Swab Structure of right lower limb / Unknown 04/08/2025 3:40 PM EDT 04/08/2025 8:05 PM EDT Sushil Dean Jr., MD MICROBIOLOGY - GENERAL ORDERABLES Final Result Performing Organization Address City/[facility] Co de Phone Number [facility]
[address] [place] [address], [place] [phone] * Scan Slide (04/08/2025 8:41 AM EDT) Pathologist [facility] RBC Morphology Normal Normal 04/08/2025 11:02 AM EDT [facility] WBC Morphology Normal Normal 04/08/2025 11:02 AM EDT [facility] Platelet Estimate Adequate Normal 04/08/2025 11:02 AM EDT [facility] Clumped Platelets Present None Seen 04/08/2025 11:02 AM EDT [facility] Blood Venipuncture / Unknown 04/08/2025 8:41 AM EDT 04/08/2025 9:10 AM EDT Una LundbergD LAB BLOOD ORDERABLES Final R esult Performing Organization Address City/[facility]/ZIP Co de Phone Number [facility]
[address] [place] [address], [place] [phone] * (ABNORMAL) CBC Auto Differential (04/08/2025 8:41 AM EDT) Pathologist [facility] WBC 10.07 3.40 - 10.80 10*3/mm3 04/08/2025 11:02 AM EDT [facility] RBC 5.01 4.14 - 5.80 10*6/mm3 04/08/2025 11:02 AM EDT [facility] Hemoglobin 14.0 13.0 - 17.7 g/dL 04/08/2025 11:02 AM [facility] Hematocrit 42.7 37.5 - 51.0 % 04/08/2025 11:02 AM [facility] MCV 85.2 79.0 - 97.0 fL 04/08/2025 11:02 AM [facility] MCH 27.9 26.6 - 33.0 pg 04/08/2025 11:02 AM [facility] MCHC 32.8 31.5 - 35.7 g/dL 04/08/2025 11:02 AM [facility] RDW 12.6 12.3 - 15.4 % 04/08/2025 11:02 AM [facility] RDW-SD 38.9 37.0 - 54.0 fl 04/08/2025 11:02 AM [facility] MPV 11.0 6.0 - 12.0 fL 04/08/2025 11:02 AM [facility] Platelets 118(L) 140 - 450 10*3/mm3 04/08/2025 11:02 AM [facility] Neutrophil % 85.1(H) 42.7 - 76.0 % 04/08/2025 11:02 AM [facility] Lymphocyte % 9.3(L) 19.6 - 45.3 % 04/08/2025 11:02 AM [facility] Monocyte % 4.6(L) 5.0 - 12.0 % 04/08/2025 11:02 AM [facility] Eosinophil % 0.3 0.3 - 6.2 % 04/08/2025 11:02 AM [facility] Basophil % 0.2 0.0 - 1.5 % 04/08/2025 11:02 AM [facility] Immature Grans % 0.5 0.0 - 0.5 % 04/08/2025 11:02 AM [facility] Neutrophils, Absolute 8.57(H) 1.70 - 7.00 10*3/mm3 04/08/2025 11:02 AM EDT [facility] Lymphocytes, Absolute 0.94 0.70 - 3.10 10*3/mm3 04/08/2025 11:02 AM EDT [facility] Monocytes, Absolute 0.46 0.10 - 0.90 10*3/mm3 04/08/2025 11:02 AM EDT [facility] Eosinophils, Absolute 0.03 0.00 - 0.40 10*3/mm3 04/08/2025 11:02 AM EDT [facility] Basophils, Absolute 0.02 0.00 - 0.20 10*3/mm3 04/08/2025 11:02 AM EDT [facility] Immature Grans, Absolute 0.05 0.00 - 0.05 10*3/mm3 04/08/2025 11:02 AM EDT [facility] nRBC 0.0 0.0 - 0.2 /100 WBC 04/08/2025 11:02 AM EDT [facility] Blood Venipuncture / Unknown 04/08/2025 8:41 AM EDT 04/08/2025 9:10 AM EDT Una Perla PharmD LAB BLOOD ORDERABLES Final R esult [facility]
[address] [place] [address], * (ABNORMAL) Basic Metabolic Panel (04/08/2025 8:41 AM EDT) Glucose 125(H) 65 - 99 mg/dL 04/08/2025 9:51 AM EDT [facility] BUN 13.2 6.0 - 20.0 mg/dL 04/08/2025 9:51 AM EDT [facility] Creatinine 0.69(L) 0.76 - 1.27 mg/dL 04/08/2025 9:51 AM EDT [facility] Sodium 136 136 - 145 mmol/L 04/08/2025 9:51 AM EDT [facility] Potassium 4.6 3.5 - 5.2 mmol/L 04/08/2025 9:51 AM EDT [facility] Chloride 102 98 - 107 mmol/L 04/08/2025 9:51 AM EDT [facility] CO2 23.5 22.0 - 29.0 mmol/L 04/08/2025 9:51 AM EDT [facility] Calcium 8.4(L) 8.6 - 10.5 mg/dL 04/08/2025 9:51 AM EDT [facility] BUN/Creatinine Ratio 19.1 7.0 - 25.0 04/08/2025 9:51 AM EDT [facility] Anion Gap 10.5 5.0 - 15.0 mmol/L 04/08/2025 9:51 AM EDT [facility] eGFR 117.0 >60.0 mL/min/1.7 3 04/08/2025 9:51 AM EDT [facility] Blood Venipuncture / Unknown 04/08/2025 8:41 AM EDT 04/08/2025 9:09 AM EDT [facility] - 04/08/2025 9:51 AM EDT [...] Jr., MD LAB BLOOD ORDERABLES nal Result [facility]
[address] [place] [address], * Heparin Anti-Xa (04/08/2025 8:41 AM EDT) Heparin Anti-Xa (UFH) 0.33 0.30 - 0.70 IU/ml 04/08/2025 9:40 AM EDT [facility] Blood Venipuncture / Unknown 04/08/2025 8:41 AM EDT 04/08/2025 9:10 AM EDT Sushil Dean Jr., MD LAB BLOOD ORDERABLES Fi nal Result [facility]
[address] [place] [address], * FL C Arm During Surgery (04/07/2025 9:32 PM EDT) Narrative SYSTEMGENERATED, DOCUMENTATION - 04/07/2025 9:38 PM EDT This procedure was auto-finalized with no dictation required. Sushil Dean Jr., MD IMG FLUOROSCOPY ORDERAB LES Final Result * Wound Culture - Swab, Leg, Right (04/07/2025 9:14 PM EDT) Wound Culture No growth at 3 days ALIZA 04/11/2025 10:40 AM EDT [facility] Gram Stain Occasional WBCs seen 04/11/2025 10:40 AM EDT [facility] Gram Stain No organisms seen 04/11/2025 10:40 AM EDT [facility] Swab Structure of right lower limb / Unknown Collection / Unknown 04/07/2025 9:14 PM EDT 04/08/2025 4:36 AM EDT Sushil Dean Jr., MD MICROBIOLOGY - GENERAL ORDERABLES Final Result [facility]
[address] [place] [address], [facility]
[address] [place] [address], * Anaerobic Culture - Swab, Leg, Right (04/07/2025 9:14 PM EDT) Anaerobic Culture No anaerobes isolated at 5 days ALIZA 04/13/2025 7:21 AM EDT [facility] Swab Structure of right lower limb / Unknown Collection / Unknown 04/07/2025 9:14 PM EDT 04/08/2025 4:36 AM EDT Sushil Dean Jr., MD MICROBIOLOGY - GENERAL ORDERABLES Final Result Performing Organization Address City/[facility]/ZIP Co de Phone Number [facility]
[address] [place] [address], * Anaerobic Culture - Tissue, Leg (04/07/2025 9:13 PM EDT) Anaerobic Culture No anaerobes isolated at 5 days ALIZA 04/13/2025 7:21 AM EDT [facility] Tissue Lower limb structure / Unknown Collection / Unknown 04/07/2025 9:13 PM EDT 04/08/2025 4:54 AM EDT Jason Álvarez DO MICROBIOLOGY - GENERAL ORDERABLE S Final Result [facility]
[address] [place] [address], * Tissue / Bone Culture - Tissue, Leg, Right (04/07/2025 9:13 PM EDT) Tissue Culture No growth at 3 days ALIZA 04/11/2025 10:36 AM EDT [facility] Gram Stain Rare (1+) WBCs seen 04/11/2025 10:36 AM EDT [facility] Gram Stain No organisms seen 04/11/2025 10:36 AM EDT [facility] [facility] Tissue Structure of right lower limb / Unknown 04/07/2025 9:13 PM EDT 04/08/2025 4:54 AM EDT Sushil Dean Jr., MD MICROBIOLOGY - GENERAL ORDERABLES Final Result Performing Organization Address City/[facility]/ZIP Co de Phone Number [facility]
[address] [place] [address], [place] [phone] [facility]
[address] [place] [address], [place] [phone] * (ABNORMAL) Wound Culture - Swab, Leg, Right (04/07/2025 9:07 PM EDT) Wound Culture Light growth (2+) Staphylococcus aureus, MRSA(A) ALIZA 04/10/2025 10:38 AM EDT [facility] Comment: Methicillin resistant Staphylococcus aureus, Patient may be an isolation risk. Gram Stain Few (2+) WBCs seen 04/10/2025 10:38 AM EDT [facility] Gram Stain No organisms seen 10:38 AM EDT [facility] Swab Structure of right lower [...] MD MICROBIOLOGY - GENERAL ORDERABLES Final Result [facility]
[address] [place] [address], [facility]
[address] [place] [address], * Anaerobic Culture - Swab, Leg, Right (04/07/2025 9:07 PM EDT) Pathologist [facility] Anaerobic Culture No anaerobes isolated at 5 days ALIZA 04/13/2025 7:21 AM EDT [facility] Swab Structure of right lower limb / Unknown Collection / Unknown 04/07/2025 9:07 PM EDT 04/08/2025 4:36 AM EDT Sushil Dean Jr., MD MICROBIOLOGY - GENERAL ORDERABLES Final Result Performing Organization Address [facility] Co de Phone Number [facility]
[address] [place] [address], * Heparin Anti-Xa (04/07/2025 9:10 AM EDT) [facility] Heparin Anti-Xa (UFH) 0.30 0.30 - 0.70 IU/ml 04/07/2025 10:12 AM EDT [facility] Blood Venipuncture / Unknown 04/07/2025 9:10 AM EDT 04/07/2025 9:38 AM EDT Una LundbergD LAB BLOOD ORDERABLES Final R esult Performing Organization Address City/[facility]/ZIP Co de Phone Number [facility]
[address] [place] [address], * (ABNORMAL) CBC Auto Differential (04/07/2025 9:10 AM EDT) Pathologist [facility] WBC 8.63 3.40 - 10.80 10*3/mm3 04/07/2025 9:50 AM EDT [facility] RBC 5.23 4.14 - 5.80 10*6/mm3 04/07/2025 9:[facility] Hemoglobin 14.7 13.0 - 17.7 g/dL 04/07/2025 9:50 [facility] Hematocrit 44.8 37.5 - 51.0 % 04/07/2025 9:50 [facility] MCV 85.7 79.0 - 97.0 fL 04/07/2025 9:50 AM EDT [facility] MCH 28.1 26.6 - 33.0 pg 04/07/2025 9:50 [facility] MCHC 32.8 31.5 - 35.7 g/dL 04/07/2025 9:50 [facility] RDW 12.8 12.3 - 15.4 % 04/07/2025 9:50 AM [facility] RDW-SD 39.9 37.0 - 54.0 fl 04/07/2025 9:50 AM [facility] MPV 10.8 6.0 - 12.0 fL 04/07/2025 9:50 AM [facility] Platelets 149 140 - 450 10*3/mm3 04/07/2025 9:50 [facility] Neutrophil % 66.7 42.7 - 76.0 % 04/07/2025 9:50 AM [facility] Lymphocyte % 20.5 19.6 - 45.3 % 04/07/2025 9:50 AM EDT [facility] Monocyte % 9.8 5.0 - 12.0 % 04/07/2025 9:50 [facility] Eosinophil % 2.1 0.3 - 6.2 % 04/07/2025 9:50 [facility] Basophil % 0.3 0.0 - 1.5 % 04/07/2025 9:50 [facility] Immature Grans % 0.6(H) 0.0 - 0.5 % 04/07/2025 9:50 AM EDT [facility] Neutrophils, Absolute 5.75 1.70 - 7.00 10*3/mm3 04/07/2025 9:50 AM EDT [facility] Lymphocytes, Absolute 1.77 0.70 - 3.10 10*3/mm3 04/07/2025 9:50 AM EDT [facility] Monocytes, Absolute 0.85 0.10 - 0.90 10*3/mm3 04/07/2025 9:50 AM EDT [facility] Eosinophils, Absolute 0.18 0.00 - 0.40 10*3/mm3 04/07/2025 9:50 AM EDT [facility] Basophils, Absolute 0.03 0.00 - 0.20 10*3/mm3 04/07/2025 9:50 AM EDT [facility] Immature Grans, Absolute 0.05 0.00 - 0.05 10*3/mm3 04/07/2025 9:50 AM EDT [facility] nRBC 0.0 0.0 - 0.2 /100 WBC 04/07/2025 9:50 AM EDT [facility] Blood Venipuncture / Unknown 04/07/2025 9:10 AM EDT 04/07/2025 9:38 AM EDT us Jason Álvarez DO LAB BLOOD ORDERABLES Final Resul t [facility]
[address] [place] [address], * (ABNORMAL) Basic Metabolic Panel (04/07/2025 9:10 AM EDT) Glucose 112(H) 65 - 99 mg/dL 04/07/2025 10:19 AM EDT [facility] BUN 13.1 6.0 - 20.0 mg/dL 04/07/2025 10:19 AM EDT [facility] Creatinine 0.77 0.76 - 1.27 mg/dL 04/07/2025 10:19 AM EDT [facility] Sodium 139 136 - 145 mmol/L 04/07/2025 10:19 AM EDT [facility] Potassium 4.2 3.5 - 5.2 mmol/L 04/07/2025 10:19 AM EDT [facility] Comment:Specimen hemolyzed. Result may be falsely elevated. Chloride 105 98 - 107 mmol/L 04/07/2025 10:19 AM EDT [facility] CO2 24.8 22.0 - 29.0 mmol/L 04/07/2025 10:19 AM EDT [facility] Calcium 8.6 8.6 - 10.5 mg/dL 04/07/2025 10:19 AM T [facility] BUN/Creatinine Ratio 17.0 7.0 - 25.0 04/07/2025 10:19 AM EDT [facility] Anion Gap 9.2 5.0 - 15.0 mmol/L 04/07/2025 10:19 AM T [facility] eGFR 113.2 >60.0 mL/min/1.7 3 04/07/2025 10:19 AM T [facility] Blood Venipuncture / Unknown 04/07/2025 9:10 AM EDT 04/07/2025 9:38 AM EDT Narrative [facility] - 04/07/2025 10:19 AM EDT [...] DO LAB BLOOD ORDERABLES Final Resul t [facility]
[address] [place] [address], * MRI Tibia Fibula Right With & [...] [place] 04/07/2025 9:58 AM EDT Workstation ID: [id number] Narrative 04/07/2025 9:58 AM EDT MRI TIBIA [...] [place] 04/07/2025 9:58 AM EDT Workstation ID: [id number] us Sushil Dean Jr., MD [facility] MRI ORDERABLES Mayr Beth l Result * Heparin Anti-Xa (04/07/2025 1:42 AM EDT) Heparin Anti-Xa (UFH) 0.38 0.30 - 0.70 IU/ml 04/07/2025 2:14 AM EDT [facility] Blood Venipuncture / Unknown 04/07/2025 1:42 AM EDT 04/07/2025 1:54 AM EDT Chelsie Navarretesapna [facility] LAB BLOOD ORDERABLES Final R esult Performing Organization Address City/[facility]/ZIP Co de Phone Number [facility]
[address] [place] [address], * Heparin Anti-Xa (04/06/2025 7:16 PM EDT) Pathologist [facility] Heparin Anti-Xa (UFH) 0.33 0.30 - 0.70 IU/ml 04/06/2025 7:50 PM EDT [facility] Blood Venipuncture / Unknown 04/06/2025 7:16 PM EDT 04/06/2025 7:35 PM EDT Cherri Beatty [facility] LAB BLOOD ORDERABLES Final Res ult Performing Organization Address City/[facility] Co de Phone Number [facility]
[address] [place] [address], * Potassium (04/06/2025 7:16 PM EDT) Pathologist [facility] Potassium 4.0 3.5 - 5.2 mmol/L 04/06/2025 7:53 PM EDT [facility] Blood Venipuncture / Unknown 04/06/2025 7:16 PM EDT 04/06/2025 7:35 PM EDT Jason Álvarez DO LAB BLOOD ORDERABLES Final Resul t Performing Organization Address City/[facility]/ZIP Co de Phone Number [facility]
[address] [place] [address], * (ABNORMAL) Heparin Anti-Xa (04/06/2025 12:36 PM EDT) Heparin Anti-Xa (UFH) 0.24(L) 0.30 - 0.70 IU/ml 04/06/2025 1:23 PM EDT [facility] Blood Venipuncture / Unknown 04/06/2025 12:36 PM EDT 04/06/2025 1:07 PM EDT Una LundbergD LAB BLOOD ORDERABLES Final R esult [facility]
[address] [place] [address], * (ABNORMAL) Heparin Anti-Xa (04/06/2025 3:42 AM EDT) [facility] Heparin Anti-Xa (UFH) 0.25(L) 0.30 - 0.70 IU/ml 04/06/2025 5:30 AM EDT [facility] Blood Venipuncture / Unknown 04/06/2025 3:42 AM EDT 04/06/2025 4:59 AM EDT Chelsie Turpin [facility] LAB BLOOD ORDERABLES Final R esult [facility]
[address] [place] [address], * (ABNORMAL) Basic Metabolic Panel (04/06/2025 3:42 AM EDT) [facility] Glucose 94 65 - 99 mg/dL 04/06/2025 5:59 AM EDT [facility] BUN 12.8 6.0 - 20.0 mg/dL 04/06/2025 5:59 AM EDT [facility] Creatinine 0.80 0.76 - 1.27 mg/dL 04/06/2025 5:59 AM EDT [facility] Sodium 138 136 - 145 mmol/L 04/06/2025 5:59 AM EDT [facility] Potassium 3.6 3.5 - 5.2 mmol/L 04/06/2025 5:59 AM EDT [facility] Chloride 103 98 - 107 mmol/L 04/06/2025 5:59 AM EDT [facility] CO2 24.2 22.0 - 29.0 mmol/L 04/06/2025 5:59 AM EDT [facility] Calcium 8.0(L) 8.6 - 10.5 mg/dL 04/06/2025 5:59 AM EDT [facility] BUN/Creatinine Ratio 16.0 7.0 - 25.0 04/06/2025 5:59 AM EDT [facility] Anion Gap 10.8 5.0 - 15.0 mmol/L 04/06/2025 5:59 AM EDT [facility] eGFR 111.9 >60.0 mL/min/1.7 3 04/06/2025 5:59 AM EDT [facility] Blood Venipuncture / Unknown 04/06/2025 3:42 AM EDT 04/06/2025 5:20 AM EDT Narrative [facility] - 04/06/2025 5:59 AM EDT [...] DO LAB BLOOD ORDERABLES Final Resul t [facility]
[address] [place] [address], * (ABNORMAL) CBC Auto Differential (04/06/2025 3:41 AM EDT) WBC 10.86(H) 3.40 - 10.80 10*3/mm3 04/06/2025 5:04 AM EDT [facility] RBC 5.08 4.14 - 5.80 10*6/mm3 04/06/2025 5:04 AM EDT [facility] Hemoglobin 13.9 13.0 - 17.7 g/dL 04/06/2025 5:04 AM EDT [facility] Hematocrit 43.7 37.5 - 51.0 % 04/06/2025 5:04 AM EDT [facility] MCV 86.0 79.0 - 97.0 fL 04/06/2025 5:04 AM EDT [facility] MCH 27.4 26.6 - 33.0 pg 04/06/2025 5:04 AM EDT [facility] MCHC 31.8 31.5 - 35.7 g/dL 04/06/2025 5:04 AM EDT [facility] RDW 12.8 12.3 - 15.4 % 04/06/2025 5:04 AM EDT [facility] RDW-SD 40.0 37.0 - 54.0 fl 04/06/2025 5:04 AM EDT [facility] MPV 11.7 6.0 - 12.0 fL 04/06/2025 5:04 AM EDT [facility] Platelets 115(L) 140 - 450 10*3/mm3 04/06/2025 5:04 AM EDT [facility] Neutrophil % 65.3 42.7 - 76.0 % 04/06/2025 5:04 AM EDT [facility] Lymphocyte % 20.5 19.6 - 45.3 % 04/06/2025 5:04 AM EDT [facility] Monocyte % 11.8 5.0 - 12.0 % 04/06/2025 5:04 AM EDT [facility] Eosinophil % 1.8 0.3 - 6.2 % 04/06/2025 5:04 AM EDT [facility] Basophil % 0.3 0.0 - 1.5 % 04/06/2025 5:04 AM EDT [facility] Immature Grans % 0.3 0.0 - 0.5 % 04/06/2025 5:04 AM EDT [facility] Neutrophils, Absolute 7.09(H) 1.70 - 7.00 10*3/mm3 04/06/2025 5:04 AM EDT [facility] Lymphocytes, Absolute 2.23 0.70 - 3.10 10*3/mm3 04/06/2025 5:04 AM EDT [facility] Monocytes, Absolute 1.28(H) 0.10 - 0.90 10*3/mm3 04/06/2025 5:04 AM EDT [facility] Eosinophils, Absolute 0.20 0.00 - 0.40 10*3/mm3 04/06/2025 5:04 AM EDT [facility] Basophils, Absolute 0.03 0.00 - 0.20 10*3/mm3 04/06/2025 5:04 AM EDT [facility] Immature Grans, Absolute 0.03 0.00 - 0.05 10*3/mm3 04/06/2025 5:04 AM EDT [facility] nRBC 0.0 0.0 - 0.2 /100 WBC 04/06/2025 5:04 AM EDT [facility] Blood Venipuncture / Unknown 04/06/2025 3:41 AM EDT 04/06/2025 4:58 AM EDT us Jason Álvarez DO LAB BLOOD ORDERABLES Final Resul t [facility]
[address] [place] [address], * Heparin Anti-Xa (04/05/2025 8:43 PM EDT) Heparin Anti-Xa (UFH) 0.38 0.30 - 0.70 IU/ml 04/05/2025 9:09 PM EDT [facility] Blood Venipuncture / Unknown 04/05/2025 8:43 PM EDT 04/05/2025 8:55 PM EDT Cherri Beatty [facility] LAB BLOOD ORDERABLES Final Res ult Performing Organization Address [facility] Co de Phone Number [facility]
[address] [place] [address], * CK (04/05/2025 12:15 PM EDT) Creatine Kinase 140 20 - 200 U/L 04/05/2025 1:31 PM EDT [facility] Blood Venipuncture / Unknown 04/05/2025 12:15 PM EDT 04/05/2025 1:03 PM EDT Carlton Mead MD LAB BLOOD ORDERABLES Final R esult Performing Organization Address [facility] Co de Phone Number [facility]
[address] [place] [address], [place] [phone] * (ABNORMAL) Heparin Anti-Xa (04/05/2025 12:15 PM EDT) Heparin Anti-Xa (UFH) 0.17(L) 0.30 - 0.70 IU/ml 04/05/2025 1:21 PM EDT [facility] Blood Venipuncture / Unknown 04/05/2025 12:15 PM EDT 04/05/2025 1:04 PM EDT Una LundbergD LAB BLOOD ORDERABLES Final R esult Performing Organization Address City/[facility]/ZIP Co de Phone Number [facility]
[address] [place] [address], * (ABNORMAL) aPTT (04/05/2025 3:54 AM EDT) [facility] PTT 35.3(L) 60.0 - 90.0 seconds 04/05/2025 4:31 AM EDT [facility] Blood Venipuncture / Unknown 04/05/2025 3:54 AM EDT 04/05/2025 4:15 AM EDT Narrative [facility] - 04/05/2025 4:31 AM EDT PTT = The equivalent PTT values for the therapeutic range of heparin levels at 0.3 to 0.5 U/ml are 60 to 70 seconds. Una Perla 3TIERD LAB BLOOD ORDERABLES Final R esult Performing Organization Address [facility] Co de Phone Number [facility]
[address] [place] [address], * Heparin Anti-Xa (04/05/2025 3:54 AM EDT) [facility] Heparin Anti-Xa (UFH) 0.30 0.30 - 0.70 IU/ml 04/05/2025 4:32 AM EDT [facility] Blood Venipuncture / Unknown 04/05/2025 3:54 AM EDT 04/05/2025 4:15 AM EDT Peacock ParadeD LAB BLOOD ORDERABLES Final R esult Performing Organization Address City/[facility] Co de Phone Number [facility]
[address] [place] [address], * (ABNORMAL) CBC Auto Differential (04/05/2025 3:54 AM EDT) [facility] WBC 11.18(H) 3.40 - 10.80 10*3/mm3 04/05/2025 4:20 AM EDT [facility] RBC 5.00 4.14 - 5.80 10*6/mm3 04/05/2025 4:20 AM EDT [facility] Hemoglobin 13.9 13.0 - 17.7 g/dL 04/05/2025 4:20 AM EDT [facility] Hematocrit 42.4 37.5 - 51.0 % 04/05/2025 4:20 AM EDT [facility] MCV 84.8 79.0 - 97.0 fL 04/05/2025 4:20 AM EDT [facility] MCH 27.8 26.6 - 33.0 pg 04/05/2025 4:[facility] MCHC 32.8 31.5 - 35.7 g/dL 04/05/2025 4:20 AM [facility] RDW 12.9 12.3 - 15.4 % 04/05/2025 4:20 AM [facility] RDW-SD 39.7 37.0 - 54.0 fl 04/05/2025 4:20 AM [facility] MPV 10.2 6.0 - 12.0 fL 04/05/2025 4:20 AM [facility] Platelets 160 140 - 450 10*3/mm3 04/05/2025 4:20 AM [facility] Neutrophil % 73.5 42.7 - 76.0 % 04/05/2025 4:20 [facility] Lymphocyte % 14.0(L) 19.6 - 45.3 % 04/05/2025 4:20 AM EDT [facility] Monocyte % 11.0 5.0 - 12.0 % 04/05/2025 4:20 [facility] Eosinophil % 0.8 0.3 - 6.2 % 04/05/2025 4:20 [facility] Basophil % 0.3 0.0 - 1.5 % 04/05/2025 4:20 AM EDT [facility] Immature Grans % 0.4 0.0 - 0.5 % 04/05/2025 4:20 AM EDT [facility] Neutrophils, Absolute 8.23(H) 1.70 - 7.00 10*3/mm3 04/05/2025 4:20 AM EDT [facility] Lymphocytes, Absolute 1.56 0.70 - 3.10 10*3/mm3 04/05/2025 4:20 AM EDT [facility] Monocytes, Absolute 1.23(H) 0.10 - 0.90 10*3/mm3 04/05/2025 4:20 AM EDT [facility] Eosinophils, Absolute 0.09 0.00 - 0.40 10*3/mm3 04/05/2025 4:20 AM EDT [facility] Basophils, Absolute 0.03 0.00 - 0.20 10*3/mm3 04/05/2025 4:20 AM EDT [facility] Immature Grans, Absolute 0.04 0.00 - 0.05 10*3/mm3 04/05/2025 4:20 AM EDT [facility] nRBC 0.0 0.0 - 0.2 /100 WBC 04/05/2025 4:20 AM EDT [facility] Blood Venipuncture / Unknown 04/05/2025 3:54 AM EDT 04/05/2025 4:16 AM EDT Una Perla PharmD LAB BLOOD ORDERABLES Final R esult [facility]
[address] [place] [address], * (ABNORMAL) Basic Metabolic Panel (04/05/2025 3:54 AM EDT) [facility] Signature Glucose 152(H) 65 - 99 mg/dL 04/05/2025 4:40 AM EDT [facility] BUN 17.3 6.0 - 20.0 mg/dL 04/05/2025 4:40 AM T [facility] Creatinine 0.92 0.76 - 1.27 mg/dL 04/05/2025 4:40 AM EDT [facility] Sodium 136 136 - 145 mmol/L 04/05/2025 4:40 AM EDT [facility] Potassium 3.9 3.5 - 5.2 mmol/L 04/05/2025 4:40 AM EDT [facility] Chloride 103 98 - 107 mmol/L 04/05/2025 4:40 AM EDT [facility] CO2 24.0 22.0 - 29.0 mmol/L 04/05/2025 4:40 AM T [facility] Calcium 7.8(L) 8.6 - 10.5 mg/dL 04/05/2025 4:40 AM [facility] BUN/Creatinine Ratio 18.8 7.0 - 25.0 04/05/2025 4:40 AM T [facility] Anion Gap 9.0 5.0 - 15.0 mmol/L 04/05/2025 4:40 AM [facility] eGFR 105.2 >60.0 mL/min/1.7 3 04/05/2025 4:40 AM [facility] Blood Venipuncture / Unknown 04/05/2025 3:54 AM EDT 04/05/2025 4:15 AM EDT [facility] - 04/05/2025 4:40 AM EDT [...] ORDERABLES Final Re sult Performing Organization Address [facility] Co de Phone Number [facility]
[address] [place] [address], * (ABNORMAL) aPTT (04/05/2025 12:18 AM EDT) PTT 33.6(L) 60.0 - 90.0 seconds 04/05/2025 12:53 AM EDT [facility] Blood Venipuncture / Unknown 04/05/2025 12:18 AM EDT 04/05/2025 12:37 AM EDT Narrative [facility] - 04/05/2025 12:53 AM EDT PTT = The equivalent PTT values for the therapeutic range of heparin levels at 0.3 to 0.5 U/ml are 60 to 70 seconds. Una Peral PharmD LAB BLOOD ORDERABLES Final R esult Performing Organization Address [facility] Co de Phone Number [facility]
[address] [place] [address], [place] [phone] * (ABNORMAL) Protime-INR (04/05/2025 12:18 AM EDT) Protime 15.9(H) 12.2 - 15.3 Seconds 04/05/2025 12:53 AM EDT [facility] INR 1.19(H) 0.89 - 1.12 04/05/2025 12:53 AM EDT [facility] Blood Venipuncture / Unknown 04/05/2025 12:18 AM EDT 04/05/2025 12:37 AM EDT Una Perla PharmD LAB BLOOD ORDERABLES Final R esult Performing Organization Address City/[facility] Co de Phone Number [facility]
[address] [place] [address], [place] [phone] * Heparin Anti-Xa (04/05/2025 12:18 AM EDT) Heparin Anti-Xa (UFH) 0.39 0.30 - 0.70 IU/ml 04/05/2025 12:54 AM EDT [facility] Blood Venipuncture / Unknown 04/05/2025 12:18 AM EDT 04/05/2025 12:37 AM EDT Una Perla PharmD LAB BLOOD ORDERABLES Final R esult [facility]
[address] [place] [address], * MRI Tibia Fibula Right With & [...] MD 04/04/2025 11:00 PM EDT Workstation ID: [id number] Narrative 04/04/2025 11:00 PM EDT MRI TIBIA [...] osteomyelitis. No knee joint effusion. Electronically Signed: eLigh Jones MD 04/04/2025 11:00 PM EDT Workstation ID: [id number] us Leonora Shepherd MD IMG MRI ORDERABLES Final Resu lt * POC Creatinine (04/04/2025 2:49 PM EDT) [facility] Creatinine 1.10 0.60 - 1.30 mg/dL 04/07/2025 7:14 PM EDT [facility] Comment:Serial Number: [id number]: [id number] Venous Blood 04/04/2025 2:49 PM EDT 04/07/2025 7:14 PM EDT Jason Álvarez DO POINT OF CARE TEST ORDERABLES Fi nal Result [facility]
[address] [place] [address], * (ABNORMAL) CBC Auto Differential (04/04/2025 2:47 PM EDT) [facility] WBC 12.72(H) 3.40 - 10.80 10*3/mm3 04/04/2025 2:56 PM EDT [facility] RBC 5.64 4.14 - 5.80 10*6/mm3 04/04/2025 2:56 PM EDT [facility] Hemoglobin 15.3 13.0 - 17.7 g/dL 04/04/2025 2:56 PM EDT [facility] Hematocrit 47.9 37.5 - 51.0 % 04/04/2025 2:56 PM EDT [facility] MCV 84.9 79.0 - 97.0 fL 04/04/2025 2:56 PM EDT [facility] MCH 27.1 26.6 - 33.0 pg 04/04/2025 2:56 PM EDT [facility] MCHC 31.9 31.5 - 35.7 g/dL 04/04/2025 2:56 PM EDT [facility] RDW 13.1 12.3 - 15.4 % 04/04/2025 2:[facility] RDW-SD 40.3 37.0 - 54.0 fl 04/04/2025 2:56 PM EDT [facility] MPV 9.4 6.0 - 12.0 fL 04/04/2025 2:56 PM EDT [facility] Platelets 232 140 - 450 10*3/mm3 04/04/2025 2:56 PM EDT [facility] Neutrophil % 74.9 42.7 - 76.0 % 04/04/2025 2:56 PM EDT [facility] Lymphocyte % 13.1(L) 19.6 - 45.3 % 04/04/2025 2:56 [facility] Monocyte % 11.2 5.0 - 12.0 % 04/04/2025 2:56 [facility] Eosinophil % 0.4 0.3 - 6.2 % 04/04/2025 2:56 PM EDT [facility] Basophil % 0.2 0.0 - 1.5 % 04/04/2025 2:56 [facility] Immature Grans % 0.2 0.0 - 0.5 % 04/04/2025 2:56 [facility] Neutrophils, Absolute 9.52(H) 1.70 - 7.00 10*3/mm3 04/04/2025 2:56 PM [facility] Lymphocytes, Absolute 1.66 0.70 - 3.10 10*3/mm3 04/04/2025 2:56 PM EDT [facility] Monocytes, Absolute 1.43(H) 0.10 - 0.90 10*3/mm3 04/04/2025 2:56 PM EDT [facility] Eosinophils, Absolute 0.05 0.00 - 0.40 10*3/mm3 04/04/2025 2:56 [facility] Basophils, Absolute 0.03 0.00 - 0.20 10*3/mm3 04/04/2025 2:56 PM EDT [facility] Immature Grans, Absolute 0.03 0.00 - 0.05 10*3/mm3 04/04/2025 2:56 PM EDT [facility] nRBC 0.0 0.0 - 0.2 /100 WBC 04/04/2025 2:56 PM EDT [facility] Blood Venipuncture / Unknown 04/04/2025 2:47 PM EDT 04/04/2025 2:52 PM EDT Mario Ortiz GhanshyamPager LAB BLOOD ORDERABLES Fin al Result Performing Organization Address City/[facility]/ZIP Co de Phone Number [facility]
[address] [place] [address], * (ABNORMAL) C-reactive Protein (04/04/2025 2:47 PM EDT) C-Reactive Protein 8.57(H) 0.00 - 0.50 mg/dL 04/04/2025 3:26 PM EDT [facility] Blood Venipuncture / Unknown 04/04/2025 2:47 PM EDT 04/04/2025 2:52 PM EDT Mario Ortiz GhanshyamPager LAB BLOOD ORDERABLES Fin al Result Performing Organization Address [facility] de Phone Number [facility]
[address] [place] [address], * (ABNORMAL) Sedimentation Rate (04/04/2025 2:47 PM EDT) Sed Rate 51(H) 0 - 15 mm/hr 04/04/2025 3:06 PM EDT [facility] Blood Venipuncture / Unknown 04/04/2025 2:47 PM EDT 04/04/2025 2:52 PM EDT Mario Ortiz [facility]oyarkansas [facility] hospitalPager LAB BLOOD ORDERABLES Fin al Result Performing Organization Address City/[facility]/ZIP Co de Phone Number [facility]
[address] [place] [address], * Comprehensive Metabolic Panel (04/04/2025 2:47 PM EDT) [facility] Glucose 90 65 - 99 mg/dL 04/04/2025 3:26 PM EDT [facility] BUN 18.3 6.0 - 20.0 mg/dL 04/04/2025 3:26 PM EDT [facility] Creatinine 0.94 0.76 - 1.27 mg/dL 04/04/2025 3:26 PM EDT [facility] Sodium 136 136 - 145 mmol/L 04/04/2025 3:26 PM EDT [facility] Potassium 3.8 3.5 - 5.2 mmol/L 04/04/2025 3:26 PM EDT [facility] Chloride 100 98 - 107 mmol/L 04/04/2025 3:26 PM EDT [facility] CO2 25.3 22.0 - 29.0 mmol/L 04/04/2025 3:26 PM EDT [facility] Calcium 8.6 8.6 - 10.5 mg/dL 04/04/2025 3:26 PM EDT [facility] Total Protein 7.3 6.0 - 8.5 g/dL 04/04/2025 3:26 PM EDT [facility] Albumin 4.1 3.5 - 5.2 g/dL 04/04/2025 3:26 PM EDT [facility] ALT (SGPT) 26 1 - 41 U/L 04/04/2025 3:26 PM EDT [facility] AST (SGOT) 25 1 - 40 U/L 04/04/2025 3:26 PM EDT [facility] Alkaline Phosphatase 106 39 - 117 U/L 04/04/2025 3:26 PM EDT [facility] Total Bilirubin 1.0 0.0 - 1.2 mg/dL 04/04/2025 3:26 PM EDT [facility] Globulin 3.2 gm/dL 04/04/2025 3:26 PM EDT [facility] Comment:Calculated Result A/G Ratio 1.3 g/dL 04/04/2025 3:26 PM EDT [facility] BUN/Creatinine Ratio 19.5 7.0 - 25.0 04/04/2025 3:26 PM EDT [facility] Anion Gap 10.7 5.0 - 15.0 mmol/L 04/04/2025 3:26 PM EDT [facility] eGFR 102.5 >60.0 mL/min/1.7 3 04/04/2025 3:26 PM EDT [facility] Blood Venipuncture / Unknown 04/04/2025 2:47 PM EDT 04/04/2025 2:52 PM EDT Narrative [facility] - 04/04/2025 3:26 PM EDT [...] DO LAB BLOOD ORDERABLES Fin al Result [facility]
[address] [place] [address], documented in this encounter Visit Diagnoses Diagnosis [...] 04/05/2025 3:33 PM EDT 2,000 Units heparin 98233 units/250 mL (100 units/mL) in 0.45 % [...] BPA Driven Protocol Open Order & [facility] Electrolyte Replacement Protocol Algorithm to View Details [...] BPA Driven Protocol Open Order & [facility] Electrolyte Replacement Protocol Algorithm to View Details [...] disposal. 0831 (Given - Provider: Amber Salazar, MEDICATION AIDE)194 (Given - Provider: Anahy Marcelino, MEDICATION AIDE)2129 (Canceled Entry - Provider: Anahy Marcelino RRT [...] unheld 0900 (Dose Auto Held - Provider: Jaosn Álvarez DO) 0900 (Dose Auto Held - Provider: Jason Álvarez DO) 0900 (Dose Auto Held - Provider: Jason Álvarez DO)1559 (Unheld by provider - Provider: Automatic Discharge Provider) Continuous Medication Order 04/09/2025 04/10/2025 04/11/2025 heparin 73022 units/250 mL (100 units/mL) in 0.45 % [...] RN)1508 (Not Given: See Alt - Provider: Shriley Hart, LU) acetaminophen (TYLENOL) tablet 500 mg(Linked [...] BPA Driven Protocol Open Order & [facility] Electrolyte Replacement Protocol Algorithm to View Details [...] BPA Driven Protocol Open Order & [facility] Electrolyte Replacement Protocol Algorithm to View Details [...] documented as of this encounter Care Teams International Sales Representative Relationship Specialty Start Date End Date Provider, [place] [address] PCP - General 05/09/23 documented as of this encounter
--- OUTSIDE RECORDS SUMMARY | 2025-04-07 18:00 | XMS_ITS | Encounter Summary ---
[facility] Address [address] [place] [address] Care Team Providers Care Valuation Consultant Name Role Phone Provider, No Known Primary Care Provider Unavail able Reason for Visit * Reason Comments Leg Swelling * Auth/Cert Specialty Diagnoses / Procedures Referred By Contac t Referred To Contact Diagnoses Right BKA infection Referral ID Status Reason Start Date Expiration Date Visits Re quested Visits Authorized [id number] 1 1 Encounter Details Date Type Department Care Team (Late st Contact Info) Description 04/07/2025 6:00 PM EDT - 04/07/2025 6:52 PM EDT Surgery [facility] OR [address] [place] [address] Sushil Dean Jr., MD [address] [place] [address] [address] [id number] LEG DEBRIDEMENT, IRRIGATION Social History Tobacco Use Types Packs/Day Years Used Date Smoking Tobacco: Never Smokeless Tobacco: Never Tobacco Cessation:Counseling Given: Not Answered Alcohol Use Standard Drinks/Week Comments Not Currently 0 (1 standard drink = 0.6 oz pur e alcohol) [facility] Utilities Answer Date Recorded In the past 12 months has [employer] electric, gas, oil, or water company threatened [...] Not on file Preferred Language Citizen Of [place] 04/07/2025 Sex and Gender Information Value Date [...] 2:25 PM EDT Cherri Grimm RN * Jachin Suicide Severity Rating Scale (Screener/Recent Self-Report) Question [...] Date/Time Wound Culture - Swab, Leg, Right [[id number]] (Abnormal) (Susceptibility) Collected: 04/07/252106 Lab Status: Final [...] Units Date/Time FL C Arm During Surgery [[id number]] Resulted: 04/07/252137 Updated: 04/07/252137 Narrative: This procedure was auto-finalized with no dictation required. MRI Tibia Fibula Right With & Without Contrast [[id number]] Collected: 04/07/25 0938 Updated: 04/07/25 1001 Narrative: [...] Buenrostro 04/07/2025 9:58 AM EDT Workstation ID: [id number] MRI Tibia Fibula Right With & Without Contrast [[id number]] Collected: 04/04/252256 Updated: 04/04/252302 Narrative: MRI TIBIA [...] represent a small area of phlegmonous change (aibiip80 image 10) measuring approximately 1.6 cm which [...] MD 04/04/2025 11:00 PM EDT Workstation ID: [id number] Pending Labs Order Current Status Fungus Culture [...] Male) Date of 1980 Social Security Number [id number] [place] [address] [place] [address] Amish Unknown Marital Status Unknown Admission Date 04/04/2025 Admission Type Emergency Admitting Provider Jadyn Richardson DO Attending Provider Jadyn Richardson DO Department, Room/Bed 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 Outpatient intravenous antibiotic therapy: Daptomycin 800 mg IV daily to be supplied by [facility] 2. Home health to perform [...] INFECTIOUS DISEASE Progress Note Won Dennis 1980 [id number] Date of Consult: 04/10/2025 Admission Date: 04/04/2025 [...] Surgeon: Susihl Dean Jr., MD; Location: [facility] OR; Service: [...] Jr., MD, 20 mg at 04/09/25906 heparin 34779 units/250 mL (100 units/mL) in 0.45 % [...] vancomycin 2750 mg/500 mL 0.9% NS IVPB ([facility]) Ordering Provider: Mario Crowley, [...] Units Date/Time FL C Arm During Surgery [[id number]] Resulted: 04/07/252137 Updated: 04/07/252137 Narrative: This procedure was auto-finalized with no dictation required. MRI Tibia Fibula Right With & Without Contrast [[id number]] Collected: 04/07/2538 Updated: 04/07/25 1001 Narrative: MRI [...] Buenrostro 04/07/2025 9:58 AM EDT Workstation ID: [id number] Impression: Recurrent Right BKA stump abscess/cellulitis- this [...] discussed his disposition with the pharmacist at [facility] today. I will sign off Outpatient orders: 1. Outpatient intravenous antibiotic therapy: Daptomycin 800 mg IV daily to be supplied by [facility] 2. Home health to perform weekly [...] Date/Time Wound Culture - Swab, Leg, Right [[id number]] (Abnormal) (Susceptibility) Collected: 04/07/252106 Lab Status: Final [...] Row Name 04/06/25 1143 Sit-Stand Transfer Sit-Stand [place] (Transfers) modified independence - Comment, (Sit-Stand Transfer) Pt stood from recliner. Not holding onto walker, pt able to pull his pants up while balancing on his one leg. -LM Row Name 04/06/25 1143 Gait/Stairs (Locomotion) [place] Level (Gait) modified independence - Distance in [...] Motion bilateral lower extremity ROM WFL -LM [facility] Name 04/06/25 1145 Strength Comprehensive (MMT) General Manual Muscle Testing (MMT) Assessment no strength deficits identified BLEs -LM [facility] Name 04/06/25 1145 Balance Balance Assessment [...] Physical Therapist Goals/Plan No documentation. Clinical Impression [facility] 04/06/25 1146 Pain Pretreatment Pain Rating 0/10 - no pain -LM Posttreatment Pain Rating 0/10 - no pain -LM [facility] 04/06/25 1146 Plan of Care Review Plan of Care Reviewed With patient -LM Outcome Evaluation PT evaluation completed. Pt demonstrated independence with all mobility including ambulating 100 feet using rw - no unsteadiness noted. Pt reports he feels at baseline and doesn't think he needs skilled PT while here. Recommend home at d/c. PT signing off. -LM [facility] Name 04/06/25 1146 Therapy Assessment/Plan (PT) Criteria for Skilled Interventions Met (PT) no;no problems identified which require skilled intervention -LM Therapy Frequency (PT) evaluation only -LM Predicted Duration of Therapy Intervention (PT) Eval Only -LM [facility] Name 04/06/25 1146 Vital Signs Pretreatment Heart Rate (beats/min) 86 -LM Posttreatment Heart Rate (beats/min) 96 -LM Pre SpO2 (%) 95 -LM O2 Delivery Pre Treatment room air -LM Post SpO2 (%) 96 -LM O2 Delivery Post Treatment room air -LM Pre Patient Position Sitting -LM Post Patient Position Sitting -LM [facility] Name 04/06/25 1146 Positioning and Restraints [...] Nurse Physical Therapy Education Title: PT OT NURSING INFORMATICS ANALYST Therapies (Done) Topic: Physical Therapy (Done) Point: Mobility training (Done) Learning Progress Summary Patient Acceptance, E, VU,DU by at 04/06/2025 1147 Point: Precautions (Done) Learning Progress Summary Patient Acceptance, E, VU,DU by at 04/06/2025 1147 User Cabrera Initials Effective Dates Name Provider Type [facility] 01/24/25 - Susan Cavazos, PT [...] Description Service Date Service Provider Modifiers Qty [id number] PT EVAL LOW COMPLEXITY 3 04/06/2025 Susan [...] mg Daily 04/05/2025 -- Route: Oral heparin 85045 units/250 mL (100 units/mL) in 0.45 % [...] Dean MD April 21 vs April 22 [facility] [address], [address] [facility], [address] Please schedule at [phone] VONDA Garcia 04/11/25 08:32 EDT Cosigned by [...] Date/Time Wound Culture - Swab, Leg, Right [[id number]] (Abnormal) (Susceptibility) Collected: 04/07/252106 Lab Status: Final [...] mg Daily 04/05/2025 -- Route: Oral heparin 68111 units/250 mL (100 units/mL) in 0.45 % [...] Dean MD April 21 vs April 22 [facility] [address] [facility], [address] [facility], [address] Please schedule at [phone] VONDA Garcia 04/10/25 09:01 EDT Cosigned by Sushil Dean Jr., MD at 04/19/2025 10:33 AM EDT Associated attestation - Sushil Dean Jr., MD - 04/19/2025 10:33 AM EDT I have reviewed this documentation and agree. * Carlton Mead MD - 04/10/2025 7:38 AM EDT Images from the original note were not included. INFECTIOUS DISEASE Progress Note Won Dennis 1980 [id number] Date of Consult: 04/10/2025 Admission Date: 04/04/2025 [...] IRRIGATION; Surgeon: Sushil Dean Jr., MD; Location: [facility] OR; Service: Orthopedics; Laterality: Right; PLACEMENT OF WOUND VAC Right 04/07/2025 Procedure: WOUND VACUUM ASSISTED CLOSURE; Surgeon: Sushil Dean Jr., MD; Location: [facility] OR; Service: Orthopedics; Laterality: Right; WOUND CLOSURE [...] Jr., MD, 20 mg at 04/09/25906 heparin 47137 units/250 mL (100 units/mL) in 0.45 % [...] Units Date/Time FL C Arm During Surgery [[id number]] Resulted: 04/07/252137 Updated: 04/07/252137 Narrative: This procedure was auto-finalized with no dictation required. MRI Tibia Fibula Right With & Without Contrast [[id number]] Collected: 04/07/25937 Updated: 04/07/25 100 Narrative: MRI [...] Buenrostro 04/07/2025 9:58 AM EDT Workstation ID: [id number] Impression: Recurrent Right BKA stump abscess/cellulitis- this [...] discussed his disposition with the pharmacist at [facility] today. I will sign off Outpatient orders: 1. Outpatient intravenous antibiotic therapy: Daptomycin 800 mg IV daily to be supplied by [facility] 2. Home health to perform weekly [...] Date/Time Wound Culture - Swab, Leg, Right [[id number]] (Abnormal) Collected: 04/07/252106 Lab Status: Preliminary result [...] -- Admin Instructions: Open Order & Select [facility] Electrolyte Replacement Protocol Algorithm [...] mg Daily 04/05/2025 -- Route: Oral heparin 46353 units/250 mL (100 units/mL) in 0.45 % [...] -- Admin Instructions: Open Order & Select [facility] Electrolyte Replacement Protocol Algorithm [...] in 2 weeks for incision check, radiographs [facility] [address], [address] [facility], [address] Please schedule at [phone] VONDA Garcia 04/09/25 09:18 EDT Cosigned by Sushil Dean Jr., MD at 04/19/2025 10:33 AM EDT Associated attestation - Sushil Dean Jr., MD - 04/19/2025 10:33 AM EDT I have reviewed this documentation and agree. * Carlton Mead MD - 04/09/2025 8:25 AM EDT Images from the original note were not included. INFECTIOUS DISEASE Progress Note Won Dennis 1980 [id number] Date of Consult: 04/09/2025 Admission Date: 04/04/2025 [...] Surgeon: Sushil Dean Jr., MD; Location: [facility]; Service: Orthopedics; Laterality: Right; PLACEMENT OF WOUND VAC Right 04/07/2025 Procedure: WOUND VACUUM ASSISTED CLOSURE; Surgeon: Sushil Dean Jr., MD; Location: [facility] OR; Service: Orthopedics; Laterality: [...] MD, 20 mg at 04/08/25 0800 heparin 13674 units/250 mL (100 units/mL) in 0.45 % [...] Units Date/Time FL C Arm During Surgery [[id number]] Resulted: 04/07/252137 Updated: 04/07/252137 Narrative: This procedure was auto-finalized with no dictation required. MRI Tibia Fibula Right With & Without Contrast [[id number]] Collected: 04/07/25 0938 Updated: 04/07/25 1001 Narrative: [...] Chitra 04/07/2025 9:58 AM EDT Workstation ID: [id number] Impression: Recurrent Right BKA stump abscess/cellulitis- this [...] mg IV daily to be supplied by [facility] 2. Home health to perform [...] Buenrostro 04/07/2025 9:58 AM EDT Workstation ID: [id number] I have personally reviewed the therapy plans: [...] -- Admin Instructions: Open Order & [facility] Electrolyte Replacement Protocol Algorithm [...] mg Daily 04/05/2025 -- Route: Oral heparin 49050 units/250 mL (100 units/mL) in 0.45 % [...] INFECTIOUS DISEASE Progress Note Won Dennis 1980 [id number] Date of Consult: 04/08/2025 Admission Date: 04/04/2025 [...] IRRIGATION; Surgeon: Sushil Dean Jr., MD; Location: [facility] OR; Service: Orthopedics; Laterality: Right; PLACEMENT OF WOUND VAC Right 04/07/2025 Procedure: WOUND VACUUM ASSISTED CLOSURE; Surgeon: Sushil Dean Jr., MD; Location: [facility] OR; Service: Orthopedics; Laterality: [...] Oral, Q6H PRN, 500 mg at 04/06/25 5804 OR acetaminophen (TYLENOL) 160 MG/5ML oral solution [...] Jr., MD, 20 mg at 04/07/25950 heparin 38485 units/250 mL (100 units/mL) in 0.45 % [...] vancomycin 2750 mg/500 mL 0.9% NS IVPB ([facility]) Ordering Provider: Mario Crowley, [...] Units Date/Time FL C Arm During Surgery [[id number]] Resulted: 04/07/252137 Updated: 04/07/252137 Narrative: This procedure was auto-finalized with no dictation required. MRI Tibia Fibula Right With & Without Contrast [[id number]] Collected: 04/07/25 0938 Updated: 04/07/25 1001 Narrative: [...] Buenrostro 04/07/2025 9:58 AM EDT Workstation ID: [id number] Impression: 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 (Treated by ID in [place] Dr. Harris). Dr. Torres treated him with [...] Buenrostro 04/07/2025 9:58 AM EDT Workstation ID: [id number] I have personally reviewed the therapy plans: [...] INFECTIOUS DISEASE Progress Note Won Dennis 1980 [id number] Date of Consult: 04/07/2025 Admission Date: 04/04/2025 [...] MD, 20 mg at 04/06/25 0900 heparin 45793 units/250 mL (100 units/mL) in 0.45 % [...] mg, 4 mg, Translingual, Q6H PRN, Jason Álavrez DO, 4 mg at 04/06/25 1002 oxybutynin [...] With & Without Contrast - In process [[id number]] Resulted: 04/07/25828 Updated: 04/07/25828 This result has not been signed. Information might be incomplete. MRI Tibia Fibula Right With & Without Contrast [[id number]] Collected: 04/04/252256 Updated: 04/04/253 Narrative: MRI TIBIA [...] represent a small area of phlegmonous change ([id number] image 10) measuring approximately 1.6 cm which [...] MD 04/04/2025 11:00 PM EDT Workstation ID: [id number] Impression: 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 (Treated by ID in [place] Dr. Harris). Dr. Torres treated him with [...] -- Admin Instructions: Open Order & Select [facility] Electrolyte Replacement Protocol Algorithm [...] mg Daily 04/05/2025 -- Route: Oral heparin 69086 units/250 mL (100 units/mL) in 0.45 % [...] -- Admin Instructions: Open Order & Select [facility] Electrolyte Replacement Protocol Algorithm [...] MD 04/04/2025 11:00 PM EDT Workstation ID: [id number] I have personally reviewed the therapy plans: [...] mg Daily 04/05/2025 -- Route: Oral heparin 39453 units/250 mL (100 units/mL) in 0.45 % [...] -- Admin Instructions: Open Order & Select [facility] Electrolyte Replacement Protocol Algorithm [...] -- Admin Instructions: Open Order & Select [facility] Electrolyte Replacement Protocol Algorithm [...] INFECTIOUS DISEASE follow up. Won Dennis 1980 [id number] Date of Consult: 04/06/2025 Admission Date: 04/04/2025 [...] MD, 20 mg at 04/06/25 0900 heparin 56790 units/250 mL (100 units/mL) in 0.45 % [...] Tibia Fibula Right With & Without Contrast [[id number]] Collected: 04/04/252256 Updated: 04/04/252302 Narrative: MRI TIBIA [...] represent a small area of phlegmonous change (sxtwai09 image 10) measuring approximately 1.6 cm which [...] MD 04/04/2025 11:00 PM EDT Workstation ID: [id number] Impression: 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 (Treated by ID in [place] Dr. Harris). Dr. 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 [...] was evaluated in the emergency department in [place], was discharged with instructions for follow-up. [...] Morning Lactobacillus-Inulin ([facility]) capsule Take 200 mg by mouth [...] MD 04/04/2025 11:00 PM EDT Workstation ID: [id number] Assessment: Right BKA infection 44-year-old male with [...] DISEASE CONSULT/INITIAL HOSPITAL VISIT Won Dennis 1980 [id number] Date of Consult: 04/05/2025 Admission Date: 04/04/2025 [...] Leonora Shepherd MD, 40 mg at 04/04/25 9647 sennosides-docusate (PERICOLACE) 8.6-50 MG per tablet 2 [...] MD, 20 mg at 04/05/25 09 heparin 11888 units/250 mL (100 units/mL) in 0.45 % [...] Leonora Shepherd MD, 10 mg at 04/04/25 4191 Pharmacy to Dose Heparin, , Not Applicable, [...] Tibia Fibula Right With & Without Contrast [[id number]] Collected: 04/04/252256 Updated: 04/04/252302 Narrative: MRI TIBIA [...] represent a small area of phlegmonous change (kcboww24 image 10) measuring approximately 1.6 cm which [...] MD 04/04/2025 11:00 PM EDT Workstation ID: [id number] Impression: 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 (Treated by ID in [place] Dr. Harris). Dr. Torres treated him with [...] Jr., MD - 04/08/2025 3:51 PM EDT [facility] OPERATIVE REPORT PATIENT NAME: Won Dennis DATE OF : 1980 PREOP DIAGNOSIS: Right Right below-knee amputation infection POSTOP DIAGNOSIS: Same. PROCEDURE: Right Right 19437: Secondary closure below-knee amputation SURGEON: Sushil Dean MD OPERATIVE TEAM: Deputy Sheriff Lieutenant: Susi Grullon RN Scrub Person: Mary Paredes Scrub Person Extra: Hortencia Toribio Other: Katt Gotti RN; Charis Neville RN ANESTHETIST: Anesthesiologist: Ulises Hoffman MD PIE CRIMPING 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: Stan Casillas CRNA Student Nurse Script Supervisor: Karol Albert SRNA ANESTHESIA: Choice ESTIMATED BLOOD [...] CULTURE (Canceled) Sushil Dean Jr., MD 04/08/25 7117 Description: RIGHT LEG DEEP WOUND FOR CULTURE [...] PM EDT [facility], [place] [address] OPERATIVE REPORT PATIENT NAME: Won Dennis DATE OF : 1980 PREOP DIAGNOSIS: Right Right below knee amputation stump infection POSTOP DIAGNOSIS: Same. PROCEDURE: Right Right 67739: Incision and drainage of surgical site infection 62377: Debridement of skin, subcutaneous tissue, muscle 42255: Wound vacuum-assisted closure SURGEON: Sushil Dean MD OPERATIVE TEAM: Deputy Sheriff Lieutenant: Anum Sanchez RN Scrub Person: Hortencia Toribio; Gerald Ivey TRACK MOVING 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: Anesthesiologist: Luci Alonso DO ANESTHESIA: General [...] this chart in the absence of a electro mechanical designer. No orders to display RADIOLOGY: [x] Radiologist's [...] software. Mario Crowley DO Attending Emergency Physician aMrio Crowley DO 04/04/251945 documented in this encounter [...] changes. DEBRA has spoke with Dena at [facility] today multiple times to get [...] to get IV ABX at home with [facility]; however, Medicaid lapsed on 04/08. DEBRA was unaware until this morning that Medicaid has lapsed. Patient explained that he has Medicare A and B. CM spoke with KELLEE and given themhis Medicare number [id number], she sent it to Admission. DEBRA spoke with Kerri, with [facility], and explained that he had [...] changes and lab work. DEBRA called D[facility] center they can accept patient and start him. He is known for their facility. The Facility will need to run it through his insurance first. CM faxed the orders over to [facility] at [phone]. CM will follow up with them tomorrow [...] PM EDT Continued Stay Note [facility] Patient Name: Won Dennis Today's Date: 04/09/2025 Admit Date: 04/04/2025 Plan: Home Discharge Plan Row Name 04/09/25 1311 Plan Plan Home Patient/Family in Agreement with Plan yes Plan Comments CM spoke with patient at bedside today. Wheelchair from [facility] is at bedside. Patient getting PICC line [...] not included. Discharge Planning Assessment [facility] Patient Name: Won Dennis Today's Date: 04/07/2025 [...] family Patient/Family Anticipated Services at Transition case specialistmanager financial planning Anticipated family or friend will provide Discharge Needs Assessment Equipment Currently Used at Home glucometer;shower chair;pulse ox;bp cuff;prosthesis;crutches Equipment Needed After Discharge none Discharge Plan Row Name 04/07/25 1144 Plan Plan Home Patient/Family in Agreement with Plan yes Plan Comments CM spoke with patient at bedside today. Patient lives with and his 5 kids in [facility]. 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 He has walker, cane, shower chair, and crutches. He requested a wheelchair for home. [facility] He is not current with home health services. PCP is Dr. Jordan. Insurance is [employer] [place]. Patient discharge plan is home with [facility] transport. CM will follow for any discharge needs. Final Discharge Disposition Code 01 - home or self-care Continued Care and Services - Admitted Since 04/04/2025 No active coordination exists. Demographic Summary Row Name 04/07/25 1143 General Information Arrived From hospital Preferred Language Citizen Of [place] Functional Status Row Name 04/07/25 1143 Functional [...] Differential (04/11/2025 3:40 AM EDT) [facility] WBC 7.87 3.40 - 10.80 10*3/mm3 04/11/2025 4:02 AM EDT [facility] RBC 4.70 4.14 - 5.80 10*6/mm3 04/11/2025 4:02 AM [facility] Hemoglobin 12.8(L) 13.0 - 17.7 g/dL 04/11/2025 4:02 AM [facility] Hematocrit 40.5 37.5 - 51.0 % 04/11/2025 4:02 AM [facility] MCV 86.2 79.0 - 97.0 fL 04/11/[facility]25 [facility] MCH 27.2 26.6 - 33.0 pg 04/11/2025 4:02 AM [facility] MCHC 31.6 31.5 - 35.7 g/dL 04/11/2025 4:02 AM [facility] RDW 12.9 12.3 - 15.4 % 04/11/2025 4:02 AM [facility] RDW-SD 40.5 37.0 - 54.0 fl 04/11/2025 4:02 AM [facility] MPV 9.2 6.0 - 12.0 fL 04/11/2025 4:02 AM [facility] Platelets 267 140 - 450 10*3/mm3 04/11/2025 4:02 AM [facility] Neutrophil % 59.5 42.7 - 76.0 % 04/11/2025 4:02 AM [facility] Lymphocyte % 26.3 19.6 - 45.3 % 04/11/2025 4:02 AM [facility] Monocyte % 9.3 5.0 - 12.0 % 04/11/2025 4:02 AM [facility] Eosinophil % 4.1 0.3 - 6.2 % 04/11/2025 [facility] Basophil % 0.4 0.0 - 1.5 % 04/11/2025 4[facility]02 [facility] Immature Grans % 0.4 0.0 - 0.5 % 04/11/2025 4:02 AM [facility] Neutrophils, Absolute 4.69 1.70 - 7.00 10*3/mm3 04/11/2025 4:02 AM EDT [facility] Lymphocytes, Absolute 2.07 0.70 - 3.10 10*3/mm3 04/11/2025 4:02 AM EDT [facility] Monocytes, Absolute 0.73 0.10 - 0.90 10*3/mm3 04/11/2025 4:02 AM EDT [facility] Eosinophils, Absolute 0.32 0.00 - 0.40 10*3/mm3 04/11/2025 4:02 AM EDT [facility] Basophils, Absolute 0.03 0.00 - 0.20 10*3/mm3 04/11/2025 4:02 AM EDT [facility] Immature Grans, Absolute 0.03 0.00 - 0.05 10*3/mm3 04/11/2025 4:02 AM EDT [facility] nRBC 0.0 0.0 - 0.2 /100 WBC 04/11/2025 4:02 AM EDT [facility] Blood Venipuncture / Unknown 04/11/2025 3:40 AM EDT 04/11/2025 3:59 AM EDT us Sushil Dean Jr., MD LAB BLOOD ORDERABLES Fi nal Result [facility]
[address] [place] [address], * (ABNORMAL) Comprehensive Metabolic Panel (04/11/2025 3:40 AM EDT) [facility] Signature Glucose 108(H) 65 - 99 mg/dL 04/11/2025 4:19 AM EDT [facility] BUN 12.5 6.0 - 20.0 mg/dL 04/11/2025 4:19 AM EDT [facility] Creatinine 0.68(L) 0.76 - 1.27 mg/dL 04/11/2025 4:19 AM [facility] Sodium 140 136 - 145 mmol/L 04/11/2025 4:19 AM [facility] Potassium 3.8 3.5 - 5.2 mmol/L 04/11/2025 4:19 AM [facility] Chloride 105 98 - 107 mmol/L 04/11/2025 4:19 AM [facility] CO2 28.2 22.0 - 29.0 mmol/L 04/11/2025 4:19 AM [facility] Calcium 8.2(L) 8.6 - 10.5 mg/dL 04/11/2025 4:19 AM [facility] Total Protein 6.1 6.0 - 8.5 g/dL 04/11/2025 4:19 AM [facility] Albumin 3.1(L) 3.5 - 5.2 g/dL 04/11/2025 4:19 AM [facility] ALT (SGPT) 52(H) 1 - 41 U/L 04/11/2025 4:19 AM [facility] AST (SGOT) 40 1 - 40 U/L 04/11/2025 4:19 AM [facility] Alkaline Phosphatase 99 39 - 117 U/L 04/11/2025 4:19 AM [facility] Total Bilirubin 0.2 0.0 - 1.2 mg/dL 04/11/2025 4:19 AM [facility] Globulin 3.0 gm/dL 04/11/2025 4:19 AM [facility] Comment:Calculated Result A/G Ratio 1.0 g/dL 04/11/2025 4:19 AM [facility] BUN/Creatinine Ratio 18.4 7.0 - 25.0 04/11/2025 4:19 AM [facility] Anion Gap 6.8 5.0 - 15.0 mmol/L 04/11/2025 4:19 AM [facility] eGFR 117.5 >60.0 mL/min/1.7 3 04/11/2025 4:19 AM EDT [facility] Blood Venipuncture / Unknown 04/11/2025 3:40 AM EDT 04/11/2025 3:56 AM EDT [facility] - 04/11/2025 4:19 AM [...] include race as a factor Rosario Hill [employer] LAB BLOOD ORDERABLES Final Result [facility]
[address] [place] [address], * (ABNORMAL) CBC Auto Differential (04/10/2025 3:46 AM EDT) WBC 9.60 3.40 - 10.80 10*3/mm3 04/10/2025 3:56 AM EDT [facility] RBC 4.67 4.14 - 5.80 10*6/mm3 04/10/2025 3:56 AM EDT [facility] Hemoglobin 12.9(L) 13.0 - 17.7 g/dL 04/10/2025 3:56 AM EDT [facility] Hematocrit 40.1 37.5 - 51.0 % 04/10/2025 3:56 AM EDT [facility] MCV 85.9 79.0 - 97.0 fL 04/10/2025 3:56 AM EDT [facility] MCH 27.6 26.6 - 33.0 pg 04/10/2025 3:56 AM EDT [facility] MCHC 32.2 31.5 - 35.7 g/dL 04/10/2025 3:56 AM [facility] RDW 12.9 12.3 - 15.4 % 04/10/2025 3:56 AM [facility] RDW-SD 40.5 37.0 - 54.0 fl 04/10/2025 3:56 AM [facility] MPV 9.5 6.0 - 12.0 fL 04/10/2025 3:56 AM EDT [facility] Platelets 227 140 - 450 10*3/mm3 04/10/2025 3:56 AM [facility] Neutrophil % 59.1 42.7 - 76.0 % 04/10/2025 3:56 AM [facility] Lymphocyte % 29.0 19.6 - 45.3 % 04/10/2025 3:56 AM [facility] Monocyte % 8.1 5.0 - 12.0 % 04/10/2025 3:56 AM [facility] Eosinophil % 3.2 0.3 - 6.2 % 04/10/2025 3:56 AM [facility] Basophil % 0.4 0.0 - 1.5 % 04/10/2025 3:56 AM [facility] Immature Grans % 0.2 0.0 - 0.5 % 04/10/2025 3:56 AM [facility] Neutrophils, Absolute 5.67 1.70 - 7.00 10*3/mm3 04/10/2025 3:56 AM [facility] Lymphocytes, Absolute 2.78 0.70 - 3.10 10*3/mm3 04/10/2025 3:56 AM [facility] Monocytes, Absolute 0.78 0.10 - 0.90 10*3/mm3 04/10/2025 3:56 AM [facility] Eosinophils, Absolute 0.31 0.00 - 0.40 10*3/mm3 04/10/2025 3:56 AM [facility] Basophils, Absolute 0.04 0.00 - 0.20 10*3/mm3 04/10/2025 3:56 AM EDT [facility] Immature Grans, Absolute 0.02 0.00 - 0.05 10*3/mm3 04/10/2025 3:56 AM EDT [facility] nRBC 0.0 0.0 - 0.2 /100 WBC 04/10/2025 3:56 AM EDT [facility] Blood Venipuncture / Unknown 04/10/2025 3:46 AM EDT 04/10/2025 3:53 AM EDT us Jason Álvarez DO LAB BLOOD ORDERABLES Final Resul t [facility]
[address] [place] [address], * (ABNORMAL) Basic Metabolic Panel (04/10/2025 3:46 AM EDT) Glucose 125(H) 65 - 99 mg/dL 04/10/2025 4:20 AM EDT [facility] BUN 15.9 6.0 - 20.0 mg/dL 04/10/2025 4:20 AM EDT [facility] Creatinine 0.77 0.76 - 1.27 mg/dL 04/10/2025 4:20 AM EDT [facility] Sodium 137 136 - 145 mmol/L 04/10/2025 4:20 AM EDT [facility] Potassium 3.9 3.5 - 5.2 mmol/L 04/10/2025 4:20 AM EDT [facility] Chloride 102 98 - 107 mmol/L 04/10/2025 4:20 AM EDT [facility] CO2 26.9 22.0 - 29.0 mmol/L 04/10/2025 4:20 AM EDT [facility] Calcium 7.9(L) 8.6 - 10.5 mg/dL 04/10/2025 4:20 AM EDT [facility] BUN/Creatinine Ratio 20.6 7.0 - 25.0 04/10/2025 4:20 AM EDT [facility] Anion Gap 8.1 5.0 - 15.0 mmol/L 04/10/2025 4:20 AM EDT [facility] eGFR 113.2 >60.0 mL/min/1.7 3 04/10/2025 4:20 AM EDT [facility] Blood Venipuncture / Unknown 04/10/2025 3:46 AM EDT 04/10/2025 3:52 AM EDT Narrative [facility] - 04/10/2025 4:20 AM EDT [...] DO LAB BLOOD ORDERABLES Final Resul t [facility]
[address] [place] [address], * Heparin Anti-Xa (04/10/2025 3:46 AM EDT) Heparin Anti-Xa (UFH) 0.35 0.30 - 0.70 IU/ml 04/10/2025 4:23 AM EDT [facility] Blood Venipuncture / Unknown 04/10/2025 3:46 AM EDT 04/10/2025 3:53 AM EDT Larisa Hamilton [facility] LAB BLOOD ORDERABLES Final R esult [facility]
[address] [place] [address], * Heparin Anti-Xa (04/09/2025 10:05 AM EDT) Pathologist [facility] Heparin Anti-Xa (UFH) 0.36 0.30 - 0.70 IU/ml 04/09/2025 11:12 AM EDT [facility] Blood Venipuncture / Unknown 04/09/2025 10:05 AM EDT 04/09/2025 10:47 AM EDT Larisa Hamilton [facility] LAB BLOOD ORDERABLES Final R esult [facility]
[address] [place] [address], * (ABNORMAL) CBC Auto Differential (04/09/2025 4:18 AM EDT) Pathologist [facility] WBC 11.00(H) 3.40 - 10.80 10*3/mm3 04/09/2025 4:50 AM EDT [facility] RBC 4.70 4.14 - 5.80 10*6/mm3 04/09/2025 4:50 AM EDT [facility] Hemoglobin 13.0 13.0 - 17.7 g/dL 04/09/2025 4:50 AM EDT [facility] Hematocrit 40.4 37.5 - 51.0 % 04/09/2025 4:50 AM EDT [facility] MCV 86.0 79.0 - 97.0 fL 04/09/2025 4:50 AM EDT [facility] MCH 27.7 26.6 - 33.0 pg 04/09/2025 4:50 AM EDT [facility] MCHC 32.2 31.5 - 35.7 g/dL 04/09/2025 4:50 AM EDT [facility] RDW 12.8 12.3 - 15.4 % 04/09/2025 4:50 AM [facility] RDW-SD 39.9 37.0 - 54.0 fl 04/09/2025 4:50 AM [facility] MPV 10.0 6.0 - 12.0 fL 04/09/2025 4:50 AM [facility] Platelets 211 140 - 450 10*3/mm3 04/09/2025 4:50 [facility] Neutrophil % 74.8 42.7 - 76.0 % 04/09/2025 4:50 AM [facility] Lymphocyte % 15.4(L) 19.6 - 45.3 % 04/09/2025 4:50 AM [facility] Monocyte % 8.5 5.0 - 12.0 % 04/09/2025 4:50 AM [facility] Eosinophil % 0.6 0.3 - 6.2 % 04/09/2025 4:50 AM [facility] Basophil % 0.4 0.0 - 1.5 % 04/09/2025 4:50 AM [facility] Immature Grans % 0.3 0.0 - 0.5 % 04/09/2025 4:50 AM [facility] Neutrophils, Absolute 8.23(H) 1.70 - 7.00 10*3/mm3 04/09/2025 4:50 AM [facility] Lymphocytes, Absolute 1.69 0.70 - 3.10 10*3/mm3 04/09/2025 4:50 AM [facility] Monocytes, Absolute 0.94(H) 0.10 - 0.90 10*3/mm3 04/09/2025 4:50 AM [facility] Eosinophils, Absolute 0.07 0.00 - 0.40 10*3/mm3 04/09/2025 4:50 AM [facility] Basophils, Absolute 0.04 0.00 - 0.20 10*3/mm3 04/09/2025 4:50 AM [facility] Immature Grans, Absolute 0.03 0.00 - 0.05 10*3/mm3 04/09/2025 4:50 AM EDT [facility] nRBC 0.0 0.0 - 0.2 /100 WBC 04/09/2025 4:50 AM EDT [facility] Blood Venipuncture / Unknown 04/09/2025 4:18 AM EDT 04/09/2025 4:31 AM EDT Sushil Dean Jr., MD LAB BLOOD ORDERABLES Fi nal Result [facility]
[address] [place] [address], * Heparin Anti-Xa (04/09/2025 4:18 AM EDT) Heparin Anti-Xa (UFH) 0.41 0.30 - 0.70 IU/ml 04/09/2025 4:53 AM EDT [facility] Blood Venipuncture / Unknown 04/09/2025 4:18 AM EDT 04/09/2025 4:31 AM EDT Una LundbergD LAB BLOOD ORDERABLES Final R esult [facility]
[address] [place] [address], * (ABNORMAL) Basic Metabolic Panel (04/09/2025 4:18 AM EDT) Glucose 147(H) 65 - 99 mg/dL 04/09/2025 5:33 AM EDT [facility] BUN 23.0(H) 6.0 - 20.0 mg/dL 04/09/2025 5:33 AM EDT [facility] Creatinine 1.15 0.76 - 1.27 mg/dL 04/09/2025 5:33 AM EDT [facility] Sodium 135(L) 136 - 145 mmol/L 04/09/2025 5:33 AM EDT [facility] Potassium 4.2 3.5 - 5.2 mmol/L 04/09/2025 5:33 AM EDT [facility] Chloride 100 98 - 107 mmol/L 04/09/2025 5:33 AM EDT [facility] CO2 26.0 22.0 - 29.0 mmol/L 04/09/2025 5:33 AM EDT [facility] Calcium 8.2(L) 8.6 - 10.5 mg/dL 04/09/2025 5:33 AM EDT [facility] BUN/Creatinine Ratio 20.0 7.0 - 25.0 04/09/2025 5:33 AM EDT [facility] Anion Gap 9.0 5.0 - 15.0 mmol/L 04/09/2025 5:33 AM EDT [facility] eGFR 80.5 >60.0 mL/min/1.7 3 04/09/2025 5:33 AM EDT [facility] Blood Venipuncture / Unknown 04/09/2025 4:18 AM EDT 04/09/2025 4:29 AM EDT [facility] - 04/09/2025 5:33 AM EDT [...] MD LAB BLOOD ORDERABLES Fi nal Result [facility]
[address] [place] [address], * Wound Culture - Swab, Leg, Right (04/08/2025 3:40 PM EDT) Wound Culture No growth at 3 days ALIZA 04/11/2025 10:40 AM EDT [facility] Gram Stain Few (2+) WBCs seen 04/11/2025 10:40 AM EDT [facility] Gram Stain No organisms seen 04/11/2025 10:40 AM EDT [facility] Swab Structure of right lower limb / Unknown 04/08/2025 3:40 PM EDT 04/08/2025 8:05 PM EDT Sushil Dean Jr., MD MICROBIOLOGY - GENERAL ORDERABLES Final Result Performing Organization Address City/[facility]/ZIP Co de Phone Number [facility]
[address] [place] [address], [facility]
[address] [place] [address], * Anaerobic Culture - Swab, Leg, Right (04/08/2025 3:40 PM EDT) Pathologist [facility] Anaerobic Culture No anaerobes isolated at 5 days ALIZA 04/13/2025 7:24 AM EDT [facility] Swab Structure of right lower limb / Unknown 04/08/2025 3:40 PM EDT 04/08/2025 8:05 PM EDT Sushil Dean Jr., MD MICROBIOLOGY - GENERAL ORDERABLES Final Result [facility]
[address] [place] [address], * Scan Slide (04/08/2025 8:41 AM EDT) RBC Morphology Normal Normal 04/08/2025 11:02 AM EDT [facility] WBC Morphology Normal Normal 04/08/2025 11:02 AM EDT [facility] Platelet Estimate Adequate Normal 04/08/2025 11:02 AM EDT [facility] Clumped Platelets Present None Seen 04/08/2025 11:02 AM EDT [facility] Blood Venipuncture / Unknown 04/08/2025 8:41 AM EDT 04/08/2025 9:10 AM EDT Una Minda PharmD LAB BLOOD ORDERABLES Final R esult [facility]
[address] [place] [address], * (ABNORMAL) CBC Auto Differential (04/08/2025 8:41 AM EDT) WBC 10.07 3.40 - 10.80 10*3/mm3 04/08/2025 11:02 AM EDT [facility] RBC 5.01 4.14 - 5.80 10*6/mm3 04/08/2025 11:02 AM EDT [facility] Hemoglobin 14.0 13.0 - 17.7 g/dL 04/08/2025 11:02 AM EDT [facility] Hematocrit 42.7 37.5 - 51.0 % 04/08/2025 11:02 AM EDT [facility] MCV 85.2 79.0 - 97.0 fL 04/08/2025 11:02 AM EDT [facility] MCH 27.9 26.6 - 33.0 pg 04/08/2025 11:02 AM EDT [facility] MCHC 32.8 31.5 - 35.7 g/dL 04/08/2025 11:02 AM EDT [facility] RDW 12.6 12.3 - 15.4 % 04/08/2025 11:02 AM EDT [facility] RDW-SD 38.9 37.0 - 54.0 fl 04/08/2025 11:02 AM [facility] MPV 11.0 6.0 - 12.0 fL 04/08/2025 11:02 AM [facility] Platelets 118(L) 140 - 450 10*3/mm3 04/08/2025 11:02 AM [facility] Neutrophil % 85.1(H) 42.7 - 76.0 % 04/08/2025 11:02 AM [facility] Lymphocyte % 9.3(L) 19.6 - 45.3 % 04/08/2025 11:02 AM [facility] Monocyte % 4.6(L) 5.0 - 12.0 % 04/08/2025 11:02 AM [facility] Eosinophil % 0.3 0.3 - 6.2 % 04/08/2025 11:02 AM [facility] Basophil % 0.2 0.0 - 1.5 % 04/08/2025 11:02 AM [facility] Immature Grans % 0.5 0.0 - 0.5 % 04/08/2025 11:02 AM [facility] Neutrophils, Absolute 8.57(H) 1.70 - 7.00 10*3/mm3 04/08/2025 11:02 AM [facility] Lymphocytes, Absolute 0.94 0.70 - 3.10 10*3/mm3 04/08/2025 11:02 AM [facility] Monocytes, Absolute 0.46 0.10 - 0.90 10*3/mm3 04/08/2025 11:02 AM [facility] Eosinophils, Absolute 0.03 0.00 - 0.40 10*3/mm3 04/08/2025 11:02 AM [facility] Basophils, Absolute 0.02 0.00 - 0.20 10*3/mm3 04/08/2025 11:02 AM [facility] Immature Grans, Absolute 0.05 0.00 - 0.05 10*3/mm3 04/08/2025 11:02 AM EDT [facility] nRBC 0.0 0.0 - 0.2 /100 WBC 04/08/2025 11:02 AM EDT [facility] Blood Venipuncture / Unknown 04/08/2025 8:41 AM EDT 04/08/2025 9:10 AM EDT Una Perla PharmD LAB BLOOD ORDERABLES Final R esult [facility]
[address] [place] [address], * (ABNORMAL) Basic Metabolic Panel (04/08/2025 8:41 AM EDT) Glucose 125(H) 65 - 99 mg/dL 04/08/2025 9:51 AM EDT [facility] BUN 13.2 6.0 - 20.0 mg/dL 04/08/2025 9:51 AM EDT [facility] Creatinine 0.69(L) 0.76 - 1.27 mg/dL 04/08/2025 9:51 AM EDT [facility] Sodium 136 136 - 145 mmol/L 04/08/2025 9:51 AM EDT [facility] Potassium 4.6 3.5 - 5.2 mmol/L 04/08/2025 9:51 AM EDT [facility] Chloride 102 98 - 107 mmol/L 04/08/2025 9:51 AM EDT [facility] CO2 23.5 22.0 - 29.0 mmol/L 04/08/2025 9:51 AM EDT [facility] Calcium 8.4(L) 8.6 - 10.5 mg/dL 04/08/2025 9:51 AM EDT [facility] BUN/Creatinine Ratio 19.1 7.0 - 25.0 04/08/2025 9:51 AM EDT [facility] Anion Gap 10.5 5.0 - 15.0 mmol/L 04/08/2025 9:51 AM EDT [facility] eGFR 117.0 >60.0 mL/min/1.7 3 04/08/2025 9:51 AM EDT [facility] Blood Venipuncture / Unknown 04/08/2025 8:41 AM EDT 04/08/2025 9:09 AM EDT Narrative [facility] - 04/08/2025 9:51 AM EDT [...] ORDERABLES Fi nal Result Performing Organization Address City/[facility]/ZIP Co de Phone Number [facility]
[address] [place] [address], * Heparin Anti-Xa (04/08/2025 8:41 AM EDT) Heparin Anti-Xa (UFH) 0.33 0.30 - 0.70 IU/ml 04/08/2025 9:40 AM EDT [facility] Blood Venipuncture / Unknown 04/08/2025 8:41 AM EDT 04/08/2025 9:10 AM EDT us Sushil Dean Jr., MD LAB BLOOD ORDERABLES Fi nal Result [facility]
[address] [place] [address], * FL C Arm During Surgery (04/07/2025 9:32 PM EDT) Narrative SYSTEMGENERATED, DOCUMENTATION - 04/07/2025 9:38 PM EDT This procedure was auto-finalized with no dictation required. us Sushil Dean Jr., MD IMG FLUOROSCOPY ORDERAB LES Final Result * Wound Culture - Swab, Leg, Right (04/07/2025 9:14 PM EDT) Wound Culture No growth at 3 days ALIZA 04/11/2025 10:40 AM EDT [facility] Gram Stain Occasional WBCs seen 04/11/2025 10:40 AM EDT [facility] Gram Stain No organisms seen 04/11/2025 10:40 AM EDT [facility] Swab Structure of right lower limb / Unknown Collection / Unknown 04/07/2025 9:14 PM EDT 04/08/2025 4:36 AM EDT us Sushil Dean Jr., MD MICROBIOLOGY - GENERAL ORDERABLES Final Result Performing Organization Address City/[facility]/ZIP Co de Phone Number [facility]
[address] [place] [address], [facility]
[address] [place] [address], * Anaerobic Culture - Swab, Leg, Right (04/07/2025 9:14 PM EDT) Anaerobic Culture No anaerobes isolated at 5 days ALIZA 04/13/2025 7:21 AM EDT [facility] Swab Structure of right lower limb / Unknown Collection / Unknown 04/07/2025 9:14 PM EDT 04/08/2025 4:36 AM EDT us Sushil Dean Jr., MD MICROBIOLOGY - GENERAL ORDERABLES Final Result [facility]
[address] [place] [address], * Anaerobic Culture - Tissue, Leg (04/07/2025 9:13 PM EDT) Pathologist [facility] Anaerobic Culture No anaerobes isolated at 5 days ALIZA 04/13/2025 7:21 AM EDT [facility] Tissue Lower limb structure / Unknown Collection / Unknown 04/07/2025 9:13 PM EDT 04/08/2025 4:54 AM EDT Jason Álvarez DO MICROBIOLOGY - GENERAL ORDERABLE S Final Result [facility]
[address] [place] [address], * Tissue / Bone Culture - Tissue, Leg, Right (04/07/2025 9:13 PM EDT) [facility] Tissue Culture No growth at 3 days ALIZA 04/11/2025 10:36 AM EDT [facility] Gram Stain Rare (1+) WBCs seen 04/11/2025 10:36 AM EDT [facility] Gram Stain No organisms seen 04/11/2025 10:36 AM EDT [facility] Tissue Structure of right lower limb / Unknown 04/07/2025 9:13 PM EDT 04/08/2025 4:54 AM EDT Sushil Dean Jr., MD MICROBIOLOGY - GENERAL ORDERABLES Final Result [facility]
[address] [place] [address], [facility]
[address] [place] [address], * (ABNORMAL) Wound Culture - Swab, Leg, Right (04/07/2025 9:07 PM EDT) Pathologist [facility] Wound Culture Light growth (2+) Staphylococcus aureus, MRSA(A) ALIZA 04/10/2025 10:38 AM EDT [facility] Comment: Methicillin resistant Staphylococcus aureus, Patient may be an isolation risk. Gram Stain Few (2+) WBCs seen 04/10/2025 10:38 AM EDT [facility] Gram Stain No organisms seen 10:38 AM EDT [facility] Swab Structure of right [...] MD MICROBIOLOGY - GENERAL ORDERABLES Final Result [facility]
[address] [place] [address], [place] [phone] [facility]
[address] [place] [address], [place] [phone] * Anaerobic Culture - Swab, Leg, Right (04/07/2025 9:07 PM EDT) Anaerobic Culture No anaerobes isolated at 5 days ALIZA 04/13/2025 7:21 AM EDT [facility] Swab Structure of right lower limb / Unknown Collection / Unknown 04/07/2025 9:07 PM EDT 04/08/2025 4:36 AM EDT us Sushil Dean Jr., MD MICROBIOLOGY - GENERAL ORDERABLES Final Result [facility]
[address] [place] [address], * Heparin Anti-Xa (04/07/2025 9:10 AM EDT) [facility] Heparin Anti-Xa (UFH) 0.30 0.30 - 0.70 IU/ml 04/07/2025 10:12 AM EDT [facility] Blood Venipuncture / Unknown 04/07/2025 9:10 AM EDT 04/07/2025 9:38 AM EDT Una Perla PharmD LAB BLOOD ORDERABLES Final R esult [facility]
[address] [place] [address], * (ABNORMAL) CBC Auto Differential (04/07/2025 9:10 AM EDT) [facility] WBC 8.63 3.40 - 10.80 10*3/mm3 04/07/2025 9:50 AM EDT [facility] RBC 5.23 4.14 - 5.80 10*6/mm3 04/07/2025 9:50 AM EDT [facility] Hemoglobin 14.7 13.0 - 17.7 g/dL 04/07/2025 9:50 AM EDT [facility] Hematocrit 44.8 37.5 - 51.0 % 04/07/2025 9:50 AM EDT [facility] MCV 85.7 79.0 - 97.0 fL 04/07/2025 9:50 AM EDT [facility] MCH 28.1 26.6 - 33.0 pg 04/07/2025 9:50 AM EDT [facility] MCHC 32.8 31.5 - 35.7 g/dL 04/07/2025 9:50 AM EDT [facility] RDW 12.8 12.3 - 15.4 % 04/07/2025 9:50 AM [facility] RDW-SD 39.9 37.0 - 54.0 fl 04/07/2025 9:50 AM [facility] MPV 10.8 6.0 - 12.0 fL 04/07/2025 9:50 AM [facility] Platelets 149 140 - 450 10*3/mm3 04/07/2025 9:50 AM [facility] Neutrophil % 66.7 42.7 - 76.0 % 04/07/2025 9:50 AM [facility] Lymphocyte % 20.5 19.6 - 45.3 % 04/07/2025 9:50 AM [facility] Monocyte % 9.8 5.0 - 12.0 % 04/07/2025 9:50 AM [facility] Eosinophil % 2.1 0.3 - 6.2 % 04/07/2025 9:50 AM [facility] Basophil % 0.3 0.0 - 1.5 % 04/07/2025 9:50 AM [facility] Immature Grans % 0.6(H) 0.0 - 0.5 % 04/07/2025 9:50 AM [facility] Neutrophils, Absolute 5.75 1.70 - 7.00 10*3/mm3 04/07/2025 9:50 AM [facility] Lymphocytes, Absolute 1.77 0.70 - 3.10 10*3/mm3 04/07/2025 9:50 AM [facility] Monocytes, Absolute 0.85 0.10 - 0.90 10*3/mm3 04/07/2025 9:50 AM [facility] Eosinophils, Absolute 0.18 0.00 - 0.40 10*3/mm3 04/07/2025 9:50 AM [facility] Basophils, Absolute 0.03 0.00 - 0.20 10*3/mm3 04/07/2025 9:50 AM [facility] Immature Grans, Absolute 0.05 0.00 - 0.05 10*3/mm3 04/07/2025 9:50 AM EDT [facility] nRBC 0.0 0.0 - 0.2 /100 WBC 04/07/2025 9:50 AM EDT [facility] Blood Venipuncture / Unknown 04/07/2025 9:10 AM EDT 04/07/2025 9:38 AM EDT Jasnoalfonso Álvarez LAB BLOOD ORDERABLES Final Resul t [facility]
[address] [place] [address], * (ABNORMAL) Basic Metabolic Panel (04/07/2025 9:10 AM EDT) Glucose 112(H) 65 - 99 mg/dL 04/07/2025 10:19 AM EDT [facility] BUN 13.1 6.0 - 20.0 mg/dL 04/07/2025 10:19 AM EDT [facility] Creatinine 0.77 0.76 - 1.27 mg/dL 04/07/2025 10:19 AM EDT [facility] Sodium 139 136 - 145 mmol/L 04/07/2025 10:19 AM EDT [facility] Potassium 4.2 3.5 - 5.2 mmol/L 04/07/2025 10:19 AM EDT [facility] Comment:Specimen hemolyzed. Result may be falsely elevated. Chloride 105 98 - 107 mmol/L 04/07/2025 10:19 AM EDT [facility] CO2 24.8 22.0 - 29.0 mmol/L 04/07/2025 10:19 AM EDT [facility] Calcium 8.6 8.6 - 10.5 mg/dL 04/07/2025 10:19 AM EDT [facility] BUN/Creatinine Ratio 17.0 7.0 - 25.0 04/07/2025 10:19 AM EDT [facility] Anion Gap 9.2 5.0 - 15.0 mmol/L 04/07/2025 10:19 AM EDT [facility] eGFR 113.2 >60.0 mL/min/1.7 3 04/07/2025 10:19 AM EDT [facility] Blood Venipuncture / Unknown 04/07/2025 9:10 AM EDT 04/07/2025 9:38 AM EDT Narrative [facility] - 04/07/2025 10:19 AM [...] Álvarez LAB BLOOD ORDERABLES Final Resul t [facility]
[address] [place] [address], * MRI Tibia Fibula Right With & [...] [place] 04/07/2025 9:58 AM EDT Workstation ID: [id number] Narrative 04/07/2025 9:58 AM EDT MRI TIBIA [...] [place] 04/07/2025 9:58 AM EDT Workstation ID: [id number] Sushil Dean Jr., MD IM MRI ORDERABLES Mary Beth l Result * Heparin Anti-Xa (04/07/2025 1:42 AM EDT) [facility] Heparin Anti-Xa (UFH) 0.38 0.30 - 0.70 IU/ml 04/07/2025 2:14 AM EDT [facility] Blood Venipuncture / Unknown 04/07/2025 1:42 AM EDT 04/07/2025 1:54 AM EDT Chelsie Turpin [facility] LAB BLOOD ORDERABLES Final R esult [facility]
[address] [place] [address], * Heparin Anti-Xa (04/06/2025 7:16 PM EDT) [facility] Heparin Anti-Xa (UFH) 0.33 0.30 - 0.70 IU/ml 04/06/2025 7:50 PM EDT [facility] Blood Venipuncture / Unknown 04/06/2025 7:16 PM EDT 04/06/2025 7:35 PM EDT Cherri Beatty RP LAB BLOOD ORDERABLES Final Res ult Performing Organization Address City/[facility]/ZIP Co de Phone Number [facility]
[address] [place] [address], * Potassium (04/06/2025 7:16 PM EDT) Potassium 4.0 3.5 - 5.2 mmol/L 04/06/2025 7:53 PM EDT [facility] Blood Venipuncture / Unknown 04/06/2025 7:16 PM EDT 04/06/2025 7:35 PM EDT Jason Álvarez DO LAB BLOOD ORDERABLES Final Resul t Performing Organization Address [facility] de Phone Number [facility]
[address] [place] [address], * (ABNORMAL) Heparin Anti-Xa (04/06/2025 12:36 PM EDT) Heparin Anti-Xa (UFH) 0.24(L) 0.30 - 0.70 IU/ml 04/06/2025 1:23 PM EDT [facility] Blood Venipuncture / Unknown 04/06/2025 12:36 PM EDT 04/06/2025 1:07 PM EDT Una LundbergD LAB BLOOD ORDERABLES Final R esult Performing Organization Address [facility] Co de Phone Number [facility]
[address] [place] [address], * (ABNORMAL) Heparin Anti-Xa (04/06/2025 3:42 AM EDT) Heparin Anti-Xa (UFH) 0.25(L) 0.30 - 0.70 IU/ml 04/06/2025 5:30 AM EDT [facility] Blood Venipuncture / Unknown 04/06/2025 3:42 AM EDT 04/06/2025 4:59 AM EDT Chelsie Turpin [facility] LAB BLOOD ORDERABLES Final R esult [facility]
[address] [place] [address], * (ABNORMAL) Basic Metabolic Panel (04/06/2025 3:42 AM EDT) Pathologist [facility] Glucose 94 65 - 99 mg/dL 04/06/2025 5:59 AM EDT [facility] BUN 12.8 6.0 - 20.0 mg/dL 04/06/2025 5:59 AM EDT [facility] Creatinine 0.80 0.76 - 1.27 mg/dL 04/06/2025 5:59 AM EDT [facility] Sodium 138 136 - 145 mmol/L 04/06/2025 5:59 AM EDT [facility] Potassium 3.6 3.5 - 5.2 mmol/L 04/06/2025 5:59 AM EDT [facility] Chloride 103 98 - 107 mmol/L 04/06/2025 5:59 AM EDT [facility] CO2 24.2 22.0 - 29.0 mmol/L 04/06/2025 5:59 AM EDT [facility] Calcium 8.0(L) 8.6 - 10.5 mg/dL 04/06/2025 5:59 AM EDT [facility] BUN/Creatinine Ratio 16.0 7.0 - 25.0 04/06/2025 5:59 AM EDT [facility] Anion Gap 10.8 5.0 - 15.0 mmol/L 04/06/2025 5:59 AM EDT [facility] eGFR 111.9 >60.0 mL/min/1.7 3 04/06/2025 5:59 AM EDT [facility] Blood Venipuncture / Unknown 04/06/2025 3:42 AM EDT 04/06/2025 5:20 AM EDT [facility] - 04/06/2025 5:59 AM EDT [...] DO LAB BLOOD ORDERABLES Final Resul t [facility]
[address] [place] [address], * (ABNORMAL) CBC Auto Differential (04/06/2025 3:41 AM EDT) WBC 10.86(H) 3.40 - 10.80 10*3/mm3 04/06/2025 5:04 AM EDT [facility] RBC 5.08 4.14 - 5.80 10*6/mm3 04/06/2025 5:04 AM EDT [facility] Hemoglobin 13.9 13.0 - 17.7 g/dL 04/06/2025 5:04 AM EDT [facility] Hematocrit 43.7 37.5 - 51.0 % 04/06/2025 5:04 AM EDT [facility] MCV 86.0 79.0 - 97.0 fL 04/06/2025 5:04 AM [facility] MCH 27.4 26.6 - 33.0 pg 04/06/2025 5:04 AM [facility] MCHC 31.8 31.5 - 35.7 g/dL 04/06/2025 5:04 AM [facility] RDW 12.8 12.3 - 15.4 % 04/06/2025 5:04 AM [facility] RDW-SD 40.0 37.0 - 54.0 fl 04/06/2025 5:04 AM [facility] MPV 11.7 6.0 - 12.0 fL 04/06/2025 5:04 AM [facility] Platelets 115(L) 140 - 450 10*3/mm3 04/06/2025 5:04 AM [facility] Neutrophil % 65.3 42.7 - 76.0 % 04/06/2025 5:04 AM [facility] Lymphocyte % 20.5 19.6 - 45.3 % 04/06/2025 5:04 AM [facility] Monocyte % 11.8 5.0 - 12.0 % 04/06/2025 5:04 AM [facility] Eosinophil % 1.8 0.3 - 6.2 % 04/06/2025 5:04 AM [facility] Basophil % 0.3 0.0 - 1.5 % 04/06/2025 5:04 AM [facility] Immature Grans % 0.3 0.0 - 0.5 % 04/06/2025 5:04 AM [facility] Neutrophils, Absolute 7.09(H) 1.70 - 7.00 10*3/mm3 04/06/2025 5:04 AM [facility] Lymphocytes, Absolute 2.23 0.70 - 3.10 10*3/mm3 04/06/2025 5:04 AM [facility] Monocytes, Absolute 1.28(H) 0.10 - 0.90 10*3/mm3 04/06/2025 5:04 AM EDT [facility] Eosinophils, Absolute 0.20 0.00 - 0.40 10*3/mm3 04/06/2025 5:04 AM EDT [facility] Basophils, Absolute 0.03 0.00 - 0.20 10*3/mm3 04/06/2025 5:04 AM EDT [facility] Immature Grans, Absolute 0.03 0.00 - 0.05 10*3/mm3 04/06/2025 5:04 AM EDT [facility] nRBC 0.0 0.0 - 0.2 /100 WBC 04/06/2025 5:04 AM EDT [facility] Blood Venipuncture / Unknown 04/06/2025 3:41 AM EDT 04/06/2025 4:58 AM EDT Jason Álvarez DO LAB BLOOD ORDERABLES Final Resul t Performing Organization Address City/[facility]/ZIP Co de Phone Number [facility]
[address] [place] [address], [place] [phone] * Heparin Anti-Xa (04/05/2025 8:43 PM EDT) [facility] Heparin Anti-Xa (UFH) 0.38 0.30 - 0.70 IU/ml 04/05/2025 9:09 PM EDT [facility] Blood Venipuncture / Unknown 04/05/2025 8:43 PM EDT 04/05/2025 8:55 PM EDT us Cherri Beatty [facility] LAB BLOOD ORDERABLES Final Res ult Performing Organization Address City/[facility]/ZIP Co de Phone Number [facility]
[address] [place] [address], [place] [phone] * CK (04/05/2025 12:15 PM EDT) Pathologist [facility] Creatine Kinase 140 20 - 200 U/L 04/05/2025 1:31 PM EDT [facility] Blood Venipuncture / Unknown 04/05/2025 12:15 PM EDT 04/05/2025 1:03 PM EDT Carlton Mead MD LAB BLOOD ORDERABLES Final R esult Performing Organization Address City/[facility]/ZIP Co de Phone Number [facility]
[address] [place] [address], * (ABNORMAL) Heparin Anti-Xa (04/05/2025 12:15 PM EDT) Heparin Anti-Xa (UFH) 0.17(L) 0.30 - 0.70 IU/ml 04/05/2025 1:21 PM EDT [facility] Blood Venipuncture / Unknown 04/05/2025 12:15 PM EDT 04/05/2025 1:04 PM EDT Una Perla PharmD LAB BLOOD ORDERABLES Final R esult [facility]
[address] [place] [address], * (ABNORMAL) aPTT (04/05/2025 3:54 AM EDT) PTT 35.3(L) 60.0 - 90.0 seconds 04/05/2025 4:31 AM EDT [facility] Blood Venipuncture / Unknown 04/05/2025 3:54 AM EDT 04/05/2025 4:15 AM EDT Narrative [facility] - 04/05/2025 4:31 AM EDT PTT = The equivalent PTT values for the therapeutic range of heparin levels at 0.3 to 0.5 U/ml are 60 to 70 seconds. Una Perla PharmD LAB BLOOD ORDERABLES Final R esult [facility]
[address] [place] [address], * Heparin Anti-Xa (04/05/2025 3:54 AM EDT) Pathologist [facility] Heparin Anti-Xa (UFH) 0.30 0.30 - 0.70 IU/ml 04/05/2025 4:32 AM EDT [facility] Blood Venipuncture / Unknown 04/05/2025 3:54 AM EDT 04/05/2025 4:15 AM EDT Una CyberIQ ServicesD LAB BLOOD ORDERABLES Final R esult Performing Organization Address City/[facility]/ZIP Co de Phone Number [facility]
[address] [place] [address], * (ABNORMAL) CBC Auto Differential (04/05/2025 3:54 AM EDT) Pathologist [facility] WBC 11.18(H) 3.40 - 10.80 10*3/mm3 04/05/2025 4:20 AM EDT [facility] RBC 5.00 4.14 - 5.80 10*6/mm3 04/05/2025 4:20 AM EDT [facility] Hemoglobin 13.9 13.0 - 17.7 g/dL 04/05/2025 4:20 AM EDT [facility] Hematocrit 42.4 37.5 - 51.0 % 04/05/2025 4:20 AM EDT [facility] MCV 84.8 79.0 - 97.0 fL 04/05/2025 4:20 AM EDT [facility] MCH 27.8 26.6 - 33.0 pg 04/05/2025 4:20 AM EDT [facility] MCHC 32.8 31.5 - 35.7 g/dL 04/05/2025 4:20 AM [facility] RDW 12.9 12.3 - 15.4 % 04/05/2025 4:20 AM [facility] RDW-SD 39.7 37.0 - 54.0 fl 04/05/2025 4:20 AM [facility] MPV 10.2 6.0 - 12.0 fL 04/05/2025 4:20 AM [facility] Platelets 160 140 - 450 10*3/mm3 04/05/2025 4:20 AM [facility] Neutrophil % 73.5 42.7 - 76.0 % 04/05/2025 4:20 AM [facility] Lymphocyte % 14.0(L) 19.6 - 45.3 % 04/05/2025 4:20 AM [facility] Monocyte % 11.0 5.0 - 12.0 % 04/05/2025 4:20 AM [facility] Eosinophil % 0.8 0.3 - 6.2 % 04/05/2025 4:20 AM [facility] Basophil % 0.3 0.0 - 1.5 % 04/05/2025 4:20 AM [facility] Immature Grans % 0.4 0.0 - 0.5 % 04/05/2025 4:20 AM [facility] Neutrophils, Absolute 8.23(H) 1.70 - 7.00 10*3/mm3 04/05/2025 4:20 AM [facility] Lymphocytes, Absolute 1.56 0.70 - 3.10 10*3/mm3 04/05/2025 4:20 AM [facility] Monocytes, Absolute 1.23(H) 0.10 - 0.90 10*3/mm3 04/05/2025 4:20 AM [facility] Eosinophils, Absolute 0.09 0.00 - 0.40 10*3/mm3 04/05/2025 4:20 AM [facility] Basophils, Absolute 0.03 0.00 - 0.20 10*3/mm3 04/05/2025 4:20 AM EDT [facility] Immature Grans, Absolute 0.04 0.00 - 0.05 10*3/mm3 04/05/2025 4:20 AM EDT [facility] nRBC 0.0 0.0 - 0.2 /100 WBC 04/05/2025 4:20 AM EDT [facility] Blood Venipuncture / Unknown 04/05/2025 3:54 AM EDT 04/05/2025 4:16 AM EDT Una Perla PharmD LAB BLOOD ORDERABLES Final R esult [facility]
[address] [place] [address], * (ABNORMAL) Basic Metabolic Panel (04/05/2025 3:54 AM EDT) Glucose 152(H) 65 - 99 mg/dL 04/05/2025 4:40 AM EDT [facility] BUN 17.3 6.0 - 20.0 mg/dL 04/05/2025 4:40 AM EDT [facility] Creatinine 0.92 0.76 - 1.27 mg/dL 04/05/2025 4:40 AM EDT [facility] Sodium 136 136 - 145 mmol/L 04/05/2025 4:40 AM EDT [facility] Potassium 3.9 3.5 - 5.2 mmol/L 04/05/2025 4:40 AM EDT [facility] Chloride 103 98 - 107 mmol/L 04/05/2025 4:40 AM EDT [facility] CO2 24.0 22.0 - 29.0 mmol/L 04/05/2025 4:40 AM EDT [facility] Calcium 7.8(L) 8.6 - 10.5 mg/dL 04/05/2025 4:40 AM EDT [facility] BUN/Creatinine Ratio 18.8 7.0 - 25.0 04/05/2025 4:40 AM EDT [facility] Anion Gap 9.0 5.0 - 15.0 mmol/L 04/05/2025 4:40 AM EDT [facility] eGFR 105.2 >60.0 mL/min/1.7 3 04/05/2025 4:40 AM EDT [facility] Blood Venipuncture / Unknown 04/05/2025 3:54 AM EDT 04/05/2025 4:15 AM EDT [facility] - 04/05/2025 4:40 AM [...] MD LAB BLOOD ORDERABLES Final Re sult [facility]
[address] [place] [address], * (ABNORMAL) aPTT (04/05/2025 12:18 AM EDT) PTT 33.6(L) 60.0 - 90.0 seconds 04/05/2025 12:53 AM EDT [facility] Blood Venipuncture / Unknown 04/05/2025 12:18 AM EDT 04/05/2025 12:37 AM EDT [facility] - 04/05/2025 12:53 AM EDT PTT = The equivalent PTT values for the therapeutic range of heparin levels at 0.3 to 0.5 U/ml are 60 to 70 seconds. [employer] PharmD LAB BLOOD ORDERABLES Final R esult Performing Organization Address City/[facility]/ZIP Co de Phone Number [facility]
[address] [place] [address], * (ABNORMAL) Protime-INR (04/05/2025 12:18 AM EDT) Protime 15.9(H) 12.2 - 15.3 Seconds 04/05/2025 12:53 AM EDT [facility] INR 1.19(H) 0.89 - 1.12 04/05/2025 12:53 AM EDT [facility] Blood Venipuncture / Unknown 04/05/2025 12:18 AM EDT 04/05/2025 12:37 AM EDT [employer] PharmD LAB BLOOD ORDERABLES Final R esult Performing Organization Address [facility] Co de Phone Number [facility]
[address] [place] [address], * Heparin Anti-Xa (04/05/2025 12:18 AM EDT) Pathologist [facility] Heparin Anti-Xa (UFH) 0.39 0.30 - 0.70 IU/ml 04/05/2025 12:54 AM EDT [facility] Blood Venipuncture / Unknown 04/05/2025 12:18 AM EDT 04/05/2025 12:37 AM EDT [employer] PharmD LAB BLOOD ORDERABLES Final R esult Performing Organization Address City/[facility]/ZIP Co de Phone Number [facility]
[address] [place] [address], * MRI Tibia Fibula Right With & [...] MD 04/04/2025 11:00 PM EDT Workstation ID: [id number] Narrative 04/04/2025 11:00 PM EDT MRI TIBIA [...] MD 04/04/2025 11:00 PM EDT Workstation ID: [id number] Leonora Shepherd MD IMG MRI ORDERABLES Final Resu lt * POC Creatinine (04/04/2025 2:49 PM EDT) Creatinine 1.10 0.60 - 1.30 mg/dL 04/07/2025 7:14 PM EDT [facility] Comment:Serial Number: [id number] Venous Blood 04/04/2025 2:49 PM EDT 04/07/2025 7:14 PM EDT Jason Álvarez DO POINT OF CARE TEST ORDERABLES Fi nal Result [facility]
[address] [place] [address], * (ABNORMAL) CBC Auto Differential (04/04/2025 2:47 PM EDT) [facility] WBC 12.72(H) 3.40 - 10.80 10*3/mm3 04/04/2025 2:56 PM EDT [facility] RBC 5.64 4.14 - 5.80 10*6/mm3 04/04/2025 2:56 PM EDT [facility] Hemoglobin 15.3 13.0 - 17.7 g/dL 04/04/2025 2:56 PM EDT [facility] Hematocrit 47.9 37.5 - 51.0 % 04/04/2025 2:56 PM EDT [facility] MCV 84.9 79.0 - 97.0 fL 04/04/2025 2:56 PM EDT [facility] MCH 27.1 26.6 - 33.0 pg 04/04/2025 2:56 PM EDT [facility] MCHC 31.9 31.5 - 35.7 g/dL 04/04/2025 2:56 PM EDT [facility] RDW 13.1 12.3 - 15.4 % 04/04/2025 2:56 PM EDT [facility] RDW-SD 40.3 37.0 - 54.0 fl 04/04/2025 2:56 PM EDT [facility] MPV 9.4 6.0 - 12.0 fL 04/04/2025 2:56 PM EDT [facility] Platelets 232 140 - 450 10*3/mm3 04/04/2025 2:56 PM EDT [facility] Neutrophil % 74.9 42.7 - 76.0 % 04/04/2025 2:56 PM EDT [facility] Lymphocyte % 13.1(L) 19.6 - 45.3 % 04/04/2025 2:56 PM EDT [facility] Monocyte % 11.2 5.0 - 12.0 % 04/04/2025 2:56 PM EDT [facility] Eosinophil % 0.4 0.3 - 6.2 % 04/04/2025 2:56 PM EDT [facility] Basophil % 0.2 0.0 - 1.5 % 04/04/2025 2:56 PM EDT [facility] Immature Grans % 0.2 0.0 - 0.5 % 04/04/2025 2:56 PM EDT [facility] Neutrophils, Absolute 9.52(H) 1.70 - 7.00 10*3/mm3 04/04/2025 2:56 PM EDT [facility] Lymphocytes, Absolute 1.66 0.70 - 3.10 10*3/mm3 04/04/2025 2:56 PM EDT [facility] Monocytes, Absolute 1.43(H) 0.10 - 0.90 10*3/mm3 04/04/2025 2:56 PM EDT [facility] Eosinophils, Absolute 0.05 0.00 - 0.40 10*3/mm3 04/04/2025 2:56 PM EDT [facility] Basophils, Absolute 0.03 0.00 - 0.20 10*3/mm3 04/04/2025 2:56 PM EDT [facility] Immature Grans, Absolute 0.03 0.00 - 0.05 10*3/mm3 04/04/2025 2:56 PM EDT [facility] nRBC 0.0 0.0 - 0.2 /100 WBC 04/04/2025 2:56 PM EDT [facility] Blood Venipuncture / Unknown 04/04/2025 2:47 PM EDT 04/04/2025 2:52 PM EDT us Mario Crowley DO LAB BLOOD ORDERABLES Fin al Result [facility]
[address] [place] [address], * (ABNORMAL) C-reactive Protein (04/04/2025 2:47 PM EDT) C-Reactive Protein 8.57(H) 0.00 - 0.50 mg/dL 04/04/2025 3:26 PM EDT [facility] Blood Venipuncture / Unknown 04/04/2025 2:47 PM EDT 04/04/2025 2:52 PM EDT [facility] Fin al Result Performing Organization Address City/[facility]/ZIP Co de Phone Number [facility]
[address] [place] [address], * (ABNORMAL) Sedimentation Rate (04/04/2025 2:47 PM EDT) Pathologist [facility] Sed Rate 51(H) 0 - 15 mm/hr 04/04/2025 3:06 PM EDT [facility] Blood Venipuncture / Unknown 04/04/2025 2:47 PM EDT 04/04/2025 2:52 PM EDT [facility]LES Fin al Result Performing Organization Address City/[facility] Co de Phone Number [facility]
[address] [place] [address], * Comprehensive Metabolic Panel (04/04/2025 2:47 PM EDT) Pathologist [facility] Glucose 90 65 - 99 mg/dL 04/04/2025 3:26 PM EDT [facility] BUN 18.3 6.0 - 20.0 mg/dL 04/04/2025 3:26 PM EDT [facility] Creatinine 0.94 0.76 - 1.27 mg/dL 04/04/2025 3:26 PM EDT [facility] Sodium 136 136 - 145 mmol/L 04/04/2025 3:26 PM EDT [facility] Potassium 3.8 3.5 - 5.2 mmol/L 04/04/2025 3:26 PM EDT [facility] Chloride 100 98 - 107 mmol/L 04/04/2025 3:26 PM EDT [facility] CO2 25.3 22.0 - 29.0 mmol/L 04/04/2025 3:26 PM EDT [facility] Calcium 8.6 8.6 - 10.5 mg/dL 04/04/2025 3:26 PM T [facility] Total Protein 7.3 6.0 - 8.5 g/dL 04/04/2025 3:26 PM EDT [facility] Albumin 4.1 3.5 - 5.2 g/dL 04/04/2025 3:26 PM T [facility] ALT (SGPT) 26 1 - 41 U/L 04/04/2025 3:26 PM [facility] AST (SGOT) 25 1 - 40 U/L 04/04/2025 3:26 PM T [facility] Alkaline Phosphatase 106 39 - 117 U/L 04/04/2025 3:26 PM T [facility] Total Bilirubin 1.0 0.0 - 1.2 mg/dL 04/04/2025 3:26 PM T [facility] Globulin 3.2 gm/dL 04/04/2025 3:26 PM [facility] Comment:Calculated Result A/G Ratio 1.3 g/dL 04/04/2025 3:26 PM [facility] BUN/Creatinine Ratio 19.5 7.0 - 25.0 04/04/2025 3:26 PM [facility] Anion Gap 10.7 5.0 - 15.0 mmol/L 04/04/2025 3:26 PM [facility] eGFR 102.5 >60.0 mL/min/1.7 3 04/04/2025 3:26 PM [facility] Blood Venipuncture / Unknown 04/04/2025 2:47 PM EDT 04/04/2025 2:52 PM EDT [facility] - 04/04/2025 3:26 PM [...] DO LAB BLOOD ORDERABLES Fin al Result [facility]
[address] [place] [address], documented in this encounter Visit Diagnoses Diagnosis [...] BPA Driven Protocol Open Order & Select [facility] Electrolyte Replacement Protocol Algorithm [...] BPA Driven Protocol Open Order & Select [facility] Electrolyte Replacement Protocol Algorithm [...] Salazar, KELL)[phone] (Given - Provider: Anahy Marcelino, BINGO FLOATER)[id number] (Canceled Entry - Provider: Anahy Marcelino BINGO FLOATER - Comment: previously given) [id number] (Given - [...] Continuous Medication Order 04/09/2025 04/10/2025 04/11/2025 heparin 92484 units/250 mL (100 units/mL) in 0.45 % [...] BPA Driven Protocol Open Order & [facility] Electrolyte Replacement Protocol Algorithm [...] documented as of this encounter Care Teams Valuation Consultant Relationship Specialty Start Date End Date Provider, [place] [address] PCP - General 05/09/23 documented as of this encounter
--- OUTSIDE RECORDS SUMMARY | 2025-04-07 20:36 | XMS_ITS | Encounter Summary ---
Author Organization [facility] Address [address] [place] [address] Care Team Providers Care Global Technical Writer Name Role Phone Provider, No Known Primary Care Provider Unavail able Reason for Visit * Auth/Cert Specialty Diagnoses / Procedures Referred By Bulmaro muniz Referred To Contact Diagnoses Right BKA infection Referral ID Status Reason Start Date Expiration Date Visits Re quested Visits Authorized [id number] 1 1 Encounter Details Date Type Department Care Team (Late st Contact Info) Description 04/07/2025 8:36 PM EDT Anesthesia Event [facility] OR [address] [place] [address] Luci Alonso DO [address] [place] [address] Anesthesia Record Procedure Summary Procedure Name Responsible [...] drink = 0.6 oz pur e alcohol) [facility] Utilities Answer Date Recorded In the past 12 months has [employer], gas, oil, or water [employer] threatened to shut off services in your [...] PACU on O2NC, breathing comfortably. Report to ESCROW AGENT at bedside. VSS. * Anesthesia Procedure Notes [...] Musculoskeletal Abdominal Substance History - negative use BUFFER NICKEL Other ROS/Med Hx Other: Eliquis 04/04/25 Hgb [...] been obtained with: patient. Plan discussed with BARREL WATERER. CODE STATUS: Code Status (Patient has no [...] documented as of this encounter Care Teams Global Technical Writer Relationship Specialty Start Date End Date Provider, No Known [facility] [place] [address] PCP - General 05/09/23 documented as of this encounter
--- OUTSIDE RECORDS SUMMARY | 2025-04-08 14:45 | XMS_ITS | Encounter Summary ---
[facility] Address [address] [place] [address] Care Team Providers Care Plastic Surgery Manager Name Role Phone Provider, No Known Primary Care Provider Unavail able Reason for Visit * Reason Comments Leg Swelling * Auth/Cert Specialty Diagnoses / Procedures Referred By Contac t Referred To Contact Diagnoses Right BKA infection Referral ID Status Reason Start Date Expiration Date Visits Re quested Visits Authorized [id number] 1 1 Encounter Details Date Type Department Care Team (Late st Contact Info) Description 04/08/2025 2:45 PM EDT - 04/08/2025 4:04 PM EDT Surgery [facility] OR [address] [place] [address] Sushil Dean Jr., MD [address] [place] [address] [address] [id number] LEG DEBRIDEMENT AND IRRIGATION Social History Tobacco Use Types Packs/Day Years Used Date Smoking Tobacco: Never Smokeless Tobacco: Never Tobacco Cessation:Counseling Given: Not Answered Alcohol Use Standard Drinks/Week Comments Not Currently 0 (1 standard drink = 0.6 oz pur e alcohol) [facility] Utilities Answer Date Recorded In the past 12 months has [email or web address] electric, gas, oil, or water company threatened [...] 2:25 PM EDT Cherri Grimm RN * [place] Suicide Severity Rating Scale (Screener/Recent Self-Report) Question [...] Date/Time Wound Culture - Swab, Leg, Right [[id number]] (Abnormal) (Susceptibility) Collected: 04/07/252106 Lab Status: Final [...] Units Date/Time FL C Arm During Surgery [[id number]] Resulted: 04/07/252137 Updated: 04/07/252137 Narrative: This procedure was auto-finalized with no dictation required. MRI Tibia Fibula Right With & Without Contrast [[id number]] Collected: 04/07/25 0938 Updated: 04/07/25 1001 Narrative: [...] Buenrostro 04/07/2025 9:58 AM EDT Workstation ID: [id number] MRI Tibia Fibula Right With & Without Contrast [[id number]] Collected: 04/04/252256 Updated: 04/04/252302 Narrative: MRI TIBIA [...] represent a small area of phlegmonous change ([id number] image 10) measuring approximately 1.6 cm which [...] MD 04/04/2025 11:00 PM EDT Workstation ID: [id number] Pending Labs Order Current Status Fungus Culture [...] Male) Date of 1980 Social Security Number [id number] [place] [address] [place] [address] Orthodoxy Unknown Marital Status Unknown Admission Date 04/04/2025 Admission Type Emergency Admitting Provider Jadyn Richardson DO Attending Provider Jadyn Richardson DO Department, Room/Bed [facility] 5G, S565/1 Discharge Date [...] Group [place] [id number] Payor Plan Address Payor Plan Phone Number Payor Plan Fax Number Effective Dates [employer] [address] [address] 08/10/2023 - None Entered [facility] [address] Subscriber Name Subscriber Date Member ID WON DENNIS 1980 [id number] Emergency Contacts Recharger (Rel.) Home Phone Work Phone Mobile Phone Avril Dennis (Spouse) -- -- [phone] Robert Hackett (Relative) -- -- [phone] [facility] 5G [address] [facility] [address] Patient: ROOM: [facility] Won Dennis [address] [place] [place] [address] : 1980 SSN: [id number] Sex: M PCP: Provider, No Known Emergency Contact Information Name Relation Home Work Mobile Avril Dennis Spouse [phone] Other Contacts Name Relation Home Work Mobile Robert Hackett Relative [phone] INSURANCE PAYOR PLAN GROUP # SUBSCRIBER ID Primary: Secondary: MEDICARE [place] [id number] Admitting Diagnosis: Right BKA infection [T87.43] Order Date: Apr 09, 2025 Case Management Mud Grinder Consult (Order ID: [id number]) Diagnosis: Priority: Routine Expected Date: Expiration Date: [...] INFECTIOUS DISEASE Progress Note Won Dennis 1980 [id number] Date of Consult: 04/10/2025 Admission Date: 04/04/2025 [...] Jr., MD, 20 mg at 04/09/25906 heparin 48554 units/250 mL (100 units/mL) in 0.45 % [...] Units Date/Time FL C Arm During Surgery [[id number]] Resulted: 04/07/252137 Updated: 04/07/252137 Narrative: This procedure was auto-finalized with no dictation required. MRI Tibia Fibula Right With & Without Contrast [[id number]] Collected: 04/07/2538 Updated: 04/07/25 1001 Narrative: MRI [...] Buenrostro 04/07/2025 9:58 AM EDT Workstation ID: [id number] Impression: Recurrent Right BKA stump abscess/cellulitis- this [...] Date/Time Wound Culture - Swab, Leg, Right [[id number]] (Abnormal) (Susceptibility) Collected: 04/07/252106 Lab Status: Final [...] Cosigned By Initials Name Provider Type Susna Pugh, PT Physical Therapist Mobility Row Name 04/06/25 1143 Bed Mobility Comment, (Bed Mobility) Up in chair at initial and end of evaluation, but states no issues with bedmobility. -LM Row Name 04/06/25 1143 Sit-Stand Transfer Sit-Stand [place] (Transfers) modified independence - Comment, (Sit-Stand Transfer) Pt stood from recliner. Not holding onto walker, pt able to pull his pants up while balancing on his one leg. -LM Row Name 04/06/25 1143 Gait/Stairs (Locomotion) [place] Level (Gait) modified independence - Distance in [...] Motion bilateral lower extremity ROM WFL -LM [facility] Name 04/06/25 1145 Strength Comprehensive (MMT) General Manual Muscle Testing (MMT) Assessment no strength deficits identified BLEs -LM [facility] Name 04/06/25 1145 Balance Balance Assessment sitting [...] home at d/c. PT signing off. -LM [facility] Name 04/06/25 1146 Therapy Assessment/Plan (PT) Criteria for Skilled Interventions Met (PT) no;no problems identified which require skilled intervention -LM Therapy Frequency (PT) evaluation only -LM Predicted Duration of Therapy Intervention (PT) Eval Only -LM [facility] Name 04/06/25 1146 Vital Signs Pretreatment Heart Rate (beats/min) 86 -LM Posttreatment Heart Rate (beats/min) 96 -LM Pre SpO2 (%) 95 -LM O2 Delivery Pre Treatment room air -LM Post SpO2 (%) 96 -LM O2 Delivery Post Treatment room air -LM Pre Patient Position Sitting -LM Post Patient Position Sitting -LM [facility] Name 04/06/25 1146 Positioning and Restraints Pre-Treatment [...] Nurse Physical Therapy Education Title: PT OT HVAC INSTALLER Therapies (Done) Topic: Physical Therapy (Done) Point: [...] Description Service Date Service Provider Modifiers Qty [id number] PT EVAL LOW COMPLEXITY 3 04/06/2025 Susan [...] mg Daily 04/05/2025 -- Route: Oral heparin 65266 units/250 mL (100 units/mL) in 0.45 % [...] Dean MD April 21 vs April 22 [facility] [address], [address] [facility], [address] Please schedule at [phone] VONDA Garcia 04/11/25 08:32 EDT Cosigned by [...] Date/Time Wound Culture - Swab, Leg, Right [[id number]] (Abnormal) (Susceptibility) Collected: 04/07/252106 Lab Status: Final [...] mg Daily 04/05/2025 -- Route: Oral heparin 15313 units/250 mL (100 units/mL) in 0.45 % [...] Dean MD April 21 vs April 22 [facility] [address] [facility] [address] [facility], [address] [facility], [address] Please schedule at [phone] VONDA Garcia 04/10/25 09:01 EDT Cosigned by Sushil Dean Jr., MD at 04/19/2025 10:33 AM EDT Associated attestation - Sushil Dean Jr., MD - 04/19/2025 10:33 AM EDT I have reviewed this documentation and agree. * Carlton Mead MD - 04/10/2025 7:38 AM EDT Images from the original note were not included. INFECTIOUS DISEASE Progress Note Won Dennis 1980 [id number] Date of Consult: 04/10/2025 Admission Date: 04/04/2025 [...] IRRIGATION; Surgeon: Sushil Dean Jr., MD; Location: [facility]; Service: Orthopedics; Laterality: Right; PLACEMENT OF WOUND VAC Right 04/07/2025 Procedure: WOUND VACUUM ASSISTED CLOSURE; Surgeon: Sushil Dean Jr., MD; Location: [facility]; Service: Orthopedics; Laterality: Right; WOUND CLOSURE [...] Jr., MD, 20 mg at 04/09/25906 heparin 40549 units/250 mL (100 units/mL) in 0.45 % [...] mg, 0.4 mg, Sublingual, Q5 Min PRN, Susihl Dean Jr., MD ondansetron ODT (ZOFRAN-ODT) disintegrating [...] Units Date/Time FL C Arm During Surgery [[id number]] Resulted: 04/07/252137 Updated: 04/07/252137 Narrative: This procedure was auto-finalized with no dictation required. MRI Tibia Fibula Right With & Without Contrast [[id number]] Collected: 04/07/25937 Updated: 04/07/25 100 Narrative: MRI [...] Buenrostro 04/07/2025 9:58 AM EDT Workstation ID: [id number] Impression: Recurrent Right BKA stump abscess/cellulitis- this [...] 04/10/2025 07:38 EDT * [facility] - 04/10/2025 7:17 [...] Date/Time Wound Culture - Swab, Leg, Right [[id number]] (Abnormal) Collected: 04/07/252106 Lab Status: Preliminary result [...] Álvarez DO 04/09/25 * Larisa [facility] - 04/09/2025 11:36 [...] mg Daily 04/05/2025 -- Route: Oral heparin 17940 units/250 mL (100 units/mL) in 0.45 % [...] in 2 weeks for incision check, radiographs [facility] [address], [address] [facility], [address] Please schedule at [phone] VONDA Garcia 04/09/25 09:18 EDT Cosigned by Sushil Dean Jr., MD at 04/19/2025 10:33 AM EDT Associated attestation - Sushil Dean Jr., MD - 04/19/2025 10:33 AM EDT I have reviewed this documentation and agree. * Carlton Mead MD - 04/09/2025 8:25 AM EDT Images from the original note were not included. INFECTIOUS DISEASE Progress Note Won Dennis 1980 [id number] Date of Consult: 04/09/2025 Admission Date: 04/04/2025 [...] Sushil Dean Jr., MD; Location: [facility]; Service: Orthopedics; Laterality: Right; PLACEMENT OF WOUND VAC Right 04/07/2025 Procedure: WOUND VACUUM ASSISTED CLOSURE; Surgeon: Sushil Dean Jr., MD; Location: [facility] OR; Service: Orthopedics; Laterality: Right; History reviewed. [...] MD, 20 mg at 04/08/25 0800 heparin 35813 units/250 mL (100 units/mL) in 0.45 % [...] Units Date/Time FL C Arm During Surgery [[id number]] Resulted: 04/07/252137 Updated: 04/07/252137 Narrative: This procedure was auto-finalized with no dictation required. MRI Tibia Fibula Right With & Without Contrast [[id number]] Collected: 04/07/25 0938 Updated: 04/07/25 1001 Narrative: [...] Chitra 04/07/2025 9:58 AM EDT Workstation ID: [id number] Impression: Recurrent Right BKA stump abscess/cellulitis- this [...] Buenrostro 04/07/2025 9:58 AM EDT Workstation ID: [id number] I have personally reviewed the therapy plans: [...] Álvarez, DO 04/08/25 * Hamilton, Larisa, [facility] - 04/08/2025 11:48 [...] mg Daily 04/05/2025 -- Route: Oral heparin 07650 units/250 mL (100 units/mL) in 0.45 % [...] INFECTIOUS DISEASE Progress Note Wno Dennis 1980 [id number] Date of Consult: 04/08/2025 Admission Date: 04/04/2025 [...] IRRIGATION; Surgeon: Sushil Dean Jr., MD; Location: [facility] OR; Service: Orthopedics; Laterality: Right; PLACEMENT OF WOUND VAC Right 04/07/2025 Procedure: WOUND VACUUM ASSISTED CLOSURE; Surgeon: Sushil Dean Jr., MD; Location: [facility] OR; Service: Orthopedics; Laterality: Right; History reviewed. [...] Oral, Q6H PRN, 500 mg at 04/06/25 9904 OR acetaminophen (TYLENOL) 160 MG/5ML oral solution [...] Jr., MD, 20 mg at 04/07/25950 heparin 43950 units/250 mL (100 units/mL) in 0.45 % [...] flush 10 mL, 10 mL, Intravenous, PRN, Susihl Dean Jr., MD sodium chloride 0.9 % [...] Units Date/Time FL C Arm During Surgery [[id number]] Resulted: 04/07/252137 Updated: 04/07/252137 Narrative: This procedure was auto-finalized with no dictation required. 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 (Treated by ID in [place] Dr. Harris). Dr. Torres treated him with [...] Buenrostro 04/07/2025 9:58 AM EDT Workstation ID: [id number] I have personally reviewed the therapy plans: [...] DO Preeti 04/07/25 * Larisa Hamilton, [facility] - 04/07/2025 11:56 [...] INFECTIOUS DISEASE Progress Note Won Dennis 1980 [id number] Date of Consult: 04/07/2025 Admission Date: 04/04/2025 [...] MD, 20 mg at 04/06/25 0900 heparin 31168 units/250 mL (100 units/mL) in 0.45 % [...] With & Without Contrast - In process [[id number]] Resulted: 04/07/25828 Updated: 04/07/25828 This result has not been signed. Information might be incomplete. MRI Tibia Fibula Right With & Without Contrast [[id number]] Collected: 04/04/252256 Updated: 04/04/253 Narrative: MRI TIBIA [...] represent a small area of phlegmonous change ([id number] image 10) measuring approximately 1.6 cm which [...] MD 04/04/2025 11:00 PM EDT Workstation ID: [id number] Impression: Right BKA stump cellulitis- s/p BKA with multiple surgical interventions with Known MRSA 05/09/2025. (Treated by ID in [place] Dr. Harris). Dr. Torres treated him with [...] mg Daily 04/05/2025 -- Route: Oral heparin 56261 units/250 mL (100 units/mL) in 0.45 % [...] MD 04/04/2025 11:00 PM EDT Workstation ID: [id number] I have personally reviewed the therapy plans: [...] mg Daily 04/05/2025 -- Route: Oral heparin 40625 units/250 mL (100 units/mL) in 0.45 % [...] INFECTIOUS DISEASE follow up. 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 (Treated by ID in [place] Dr. Harris). Dr. Torres treated him with [...] MD 04/04/2025 11:00 PM EDT Workstation ID: [id number] I have personally reviewed the therapy plans: [...] MD 04/04/2025 11:00 PM EDT Workstation ID: [id number] Assessment & Plan Assessment & Plan Won [...] in this encounter Consult Notes * Zelda Bunrs RN - 04/09/2025 1:10 PM EDTAssociated Order(s): IP CONSULT FOR PICC 4FR PICC placed by Rhoda Bonner RN [facility] tip verified by 3CG see LDA. * Sushil Dean Jr., MD - 04/05/2025 8:07 AM EDTAssociated Order(s): IP CONSULT TO ORTHOPEDIC SURGERY [facility], [facility] [address] [address] Orthopedic Consult Patient: Won Dennis Date of [...] was evaluated in the emergency department in [place], was discharged with instructions for follow-up. He [...] mouth Daily. 04/03/2025 Morning Lactobacillus-Inulin ([facility]) capsule Take 200 mg by mouth Daily. [...] MD 04/04/2025 11:00 PM EDT Workstation ID: [id number] Assessment: Right BKA infection 44-year-old male with [...] DISEASE CONSULT/INITIAL HOSPITAL VISIT Won Dennis 1980 [id number] Date of Consult: 04/05/2025 Admission Date: 04/04/2025 [...] Leonora Shepherd MD, 40 mg at 04/04/25 7946 sennosides-docusate (PERICOLACE) 8.6-50 MG per tablet 2 [...] MD, 20 mg at 04/05/25 09 heparin 01838 units/250 mL (100 units/mL) in 0.45 % [...] Leonora Shepherd MD, 10 mg at 04/04/25 7869 Pharmacy to Dose Heparin, , Not Applicable, [...] 10 mL, 10 mL, Intravenous, Q12H, Leonora Sehpherd MD, 10 mL at 04/05/25915 sodium chloride [...] Tibia Fibula Right With & Without Contrast [[id number]] Collected: 04/04/252256 Updated: 04/04/252302 Narrative: MRI TIBIA [...] represent a small area of phlegmonous change ([id number] image 10) measuring approximately 1.6 cm which [...] MD 04/04/2025 11:00 PM EDT Workstation ID: [id number] Impression: 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 (Treated by ID in [place] Dr. Harris). Dr. Torres treated him with [...] Jr., MD - 04/08/2025 3:51 PM EDT [facility] OPERATIVE REPORT PATIENT NAME: Won Dennis DATE OF : 1980 PREOP DIAGNOSIS: Right Right below-knee amputation infection POSTOP DIAGNOSIS: Same. PROCEDURE: Right Right 03166: Secondary closure below-knee amputation SURGEON: Sushil Dean MD OPERATIVE TEAM: Computer Service Technician: Susi Grullon RN Scrub Person: Mary Paredes Scrub Person Extra: Hortencia Toribio Other: Katt Gotti RN; Charis Neville RN ANESTHETIST: Anesthesiologist: Ulises Hoffman MD ROOFING CONTRACTOR: Stan Casillas CRNA Student Nurse Sawmill Moulder Operator: Karol Albert SRNA ANESTHESIA: Choice ESTIMATED [...] CULTURE (Canceled) Sushil Dean Jr., MD 04/08/25 6333 Description: RIGHT LEG DEEP WOUND FOR CULTURE [...] Jr., MD - 04/07/2025 9:03 PM EDT [facility], [place] [address] OPERATIVE REPORT PATIENT NAME: Won Dennis DATE OF : 1980 PREOP DIAGNOSIS: Right Right below knee amputation stump infection POSTOP DIAGNOSIS: Same. PROCEDURE: Right Right 00694: Incision and drainage of surgical site infection 58570: Debridement of skin, subcutaneous tissue, muscle 07583: Wound vacuum-assisted closure SURGEON: Sushil Dean MD OPERATIVE TEAM: Computer Service Technician: Anum Sanchez RN Scrub Person: Hortencia Toribio; Gerald Ivey NIGHT WAREHOUSE MANAGER: Anesthesiologist: Luci Alonso DO ANESTHESIA: General ESTIMATED [...] this chart in the absence of a behavior interventionist. No orders to display RADIOLOGY: [x] Radiologist's [...] changes. DEBRA has spoke with Dena at [facility] today multiple times to get setup [...] with KELLEE and given themhis Medicare number [id number], she sent it to Admission. DEBRA spoke [...] to [facility] at [phone]. CM will follow up with them tomorrow [...] EDT Continued Stay Note [facility] Patient Name: Won Dennis Today's Date: 04/09/2025 Admit Date: 04/04/2025 Plan: Home Discharge Plan Row Name 04/09/25 1311 Plan Plan Home Patient/Family in Agreement with Plan yes Plan Comments CM spoke with patient at bedside today. Wheelchair from [employer] is at bedside. Patient getting PICC line [...] included. Discharge Planning Assessment [facility] Patient Name: Won Dennis Today's Date: [...] with family Patient/Family Anticipated Services at Transition geriatric case managervalet manager Anticipated family or friend will provide Discharge Needs Assessment Equipment Currently Used at Home glucometer;shower chair;pulse ox;bp cuff;prosthesis;crutches Equipment Needed After Discharge none Discharge Plan Row Name 04/07/25 1144 Plan Plan Home Patient/Family in Agreement with Plan yes Plan Comments CM spoke with patient at bedside today. Patient lives with and his 5 kids in [facility]. 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 He has walker, cane, shower chair, and crutches. He requested a wheelchair for home. CM [facility]. He is not current with [...] General Information Arrived From hospital Preferred Language Martiniquais Functional Status Row Name 04/07/25 1143 Functional [...] - 10.80 10*3/mm3 04/11/2025 4:02 AM EDT [facility] RBC 4.70 4.14 - 5.80 10*6/mm3 04/11/2025 4:02 AM [facility] Hemoglobin 12.8(L) 13.0 - 17.7 g/dL 04/11/2025 4:02 AM [facility] Hematocrit 40.5 37.5 - 51.0 % 04/11/2025 4:02 AM [facility] MCV 86.2 79.0 - 97.0 fL 04/11/2025 4:02 AM [facility] MCH 27.2 26.6 [...] 0.3 - 6.2 % 04/11/2025 4:02 AM [facility] Basophil % 0.4 0.0 - 1.5 % 04[facility] Immature Grans % 0.4 0.0 - 0.5 % 04/11/2025 4:02 AM EDT [facility] Neutrophils, Absolute 4.69 1.70 - 7.00 10*3/mm3 04/11/2025 4:02 AM EDT [facility] Lymphocytes, Absolute 2.07 0.70 - 3.10 10*3/mm3 04/11/2025 4:02 AM EDT [facility] Monocytes, Absolute 0.73 0.10 - 0.90 10*3/mm3 04/11/2025 4:02 AM EDT [facility] Eosinophils, Absolute 0.32 0.00 - 0.40 10*3/mm3 04/11/2025 4:02 AM EDT [facility] Basophils, Absolute 0.03 0.00 - 0.20 10*3/mm3 04/11/2025 4:02 AM EDT [facility] Immature Grans, Absolute 0.03 0.00 - 0.05 10*3/mm3 04/11/2025 4:02 AM EDT [facility] nRBC 0.0 0.0 - 0.2 /100 WBC 04/11/2025 4:02 AM EDT [facility] Blood Venipuncture / Unknown 04/11/2025 3:40 AM EDT 04/11/2025 3:59 AM EDT us uSshil Dean Jr., MD LAB BLOOD ORDERABLES Fi nal Result [facility]
[address] [place] [address], * (ABNORMAL) Comprehensive Metabolic Panel (04/11/2025 3:40 AM EDT) Glucose 108(H) 65 - 99 mg/dL 04/11/2025 4:19 AM EDT [facility] BUN 12.5 6.0 - 20.0 mg/dL 04/11/2025 4:19 AM EDT [facility] Creatinine 0.68(L) 0.76 [...] >60.0 mL/min/1.7 3 04/11/2025 4:19 AM EDT [facility] Blood Venipuncture [...] Hill APRN LAB BLOOD ORDERABLES Final Result [facility]
[address] [place] [address], * (ABNORMAL) CBC Auto Differential (04/10/2025 3:46 AM EDT) WBC 9.60 3.40 - 10.80 10*3/mm3 04/10/2025 3:56 AM EDT [facility] RBC 4.67 4.14 - 5.80 10*6/mm3 04/10/2025 3:56 AM EDT [facility] Hemoglobin 12.9(L) 13.0 - 17.7 g/dL 04/10/2025 3:56 AM EDT [facility] Hematocrit 40.1 37.5 - 51.0 % 04/10/2025 3:56 AM EDT [facility] MCV 85.9 79.0 - 97.0 fL 04/10/2025 3:56 AM EDT [facility] MCH 27.6 26.6 - 33.0 pg 04/10/2025 3:56 [facility] MCHC 32.2 31.5 - 35.7 g/dL 04/10/2025 3:56 AM EDT [facility] RDW 12.9 12.3 - 15.4 % 04/10/2025 3:56 AM [facility] RDW-SD 40.5 37.0 - 54.0 fl 04/10/2025 3:56 AM EDT [facility] MPV 9.5 6.0 - 12.0 fL 04/10/2025 3:56 AM EDT [facility] Platelets 227 140 - 450 10*3/mm3 04/10/2025 3:56 AM [facility] Neutrophil % 59.1 42.7 - 76.0 % 04/10/2025 3:56 AM [facility] Lymphocyte % 29.0 19.6 - 45.3 % 04/10/2025 3:56 AM [facility] Monocyte % 8.1 5.0 - 12.0 % 04/10/2025 3:56 AM [facility] Eosinophil % 3.2 0.3 - 6.2 % 04/10/2025 3:56 AM [facility] Basophil % 0.4 0.0 - 1.5 % 04/10/2025 3:56 AM [facility] Immature Grans % 0.2 0.0 - 0.5 % 04/10/2025 3:56 AM [facility] Neutrophils, Absolute 5.67 1.70 - 7.00 10*3/mm3 04/10/2025 3:56 AM [facility] Lymphocytes, Absolute 2.78 0.70 - 3.10 10*3/mm3 04/10/2025 3:56 AM [facility] Monocytes, Absolute 0.78 0.10 - 0.90 10*3/mm3 04/10/2025 3:56 AM [facility] Eosinophils, Absolute 0.31 0.00 - 0.40 10*3/mm3 04/10/2025 3:56 AM EDT [facility] Basophils, Absolute 0.04 0.00 - 0.20 10*3/mm3 04/10/2025 3:56 AM EDT [facility] Immature Grans, Absolute 0.02 0.00 - 0.05 10*3/mm3 04/10/2025 3:56 AM EDT [facility] nRBC 0.0 0.0 - 0.2 /100 WBC 04/10/2025 3:56 AM EDT [facility] Blood Venipuncture / Unknown 04/10/2025 3:46 AM EDT 04/10/2025 3:53 AM EDT us Jason Álvarez DO LAB BLOOD ORDERABLES Final Resul t [facility]
[address] [place] [address], * (ABNORMAL) Basic Metabolic Panel (04/10/2025 3:46 AM EDT) Glucose 125(H) 65 - 99 mg/dL 04/10/2025 4:20 AM EDT [facility] BUN 15.9 6.0 - 20.0 mg/dL 04/10/2025 4:20 AM EDT [facility] Creatinine 0.77 0.76 - 1.27 mg/dL 04/10/2025 4:20 AM EDT [facility] Sodium 137 136 - 145 mmol/L 04/10/2025 4:20 AM EDT [facility] Potassium 3.9 3.5 - 5.2 mmol/L 04/10/2025 4:20 AM EDT [facility] Chloride 102 98 - 107 mmol/L 04/10/2025 4:20 AM EDT [facility] CO2 26.9 22.0 - 29.0 mmol/L 04/10/2025 4:20 AM EDT [facility] Calcium 7.9(L) 8.6 - 10.5 mg/dL 04/10/2025 4:20 AM EDT [facility] BUN/Creatinine Ratio 20.6 7.0 - 25.0 04/10/2025 4:20 AM EDT [facility] Anion Gap 8.1 5.0 - 15.0 mmol/L 04/10/2025 4:20 AM EDT [facility] eGFR 113.2 >60.0 mL/min/1.7 3 04/10/2025 4:20 AM EDT [facility] Blood Venipuncture / Unknown 04/10/2025 3:46 AM EDT 04/10/2025 3:52 AM EDT Narrative [facility] - 04/10/2025 4:20 [...] DO LAB BLOOD ORDERABLES Final Resul t [facility]
[address] [place] [address], * Heparin Anti-Xa (04/10/2025 3:46 AM EDT) Heparin Anti-Xa (UFH) 0.35 0.30 - 0.70 IU/ml 04/10/2025 4:23 AM EDT [facility] Blood Venipuncture / Unknown 04/10/2025 3:46 AM EDT 04/10/2025 3:53 AM EDT Larisa Hamilton [facility] LAB BLOOD ORDERABLES Final R esult [facility]
[address] [place] [address], * Heparin Anti-Xa (04/09/2025 10:05 AM EDT) Pathologist [facility] Heparin Anti-Xa (UFH) 0.36 0.30 - 0.70 IU/ml 04/09/2025 11:12 AM EDT [facility] Blood Venipuncture / Unknown 04/09/2025 10:05 AM EDT 04/09/2025 10:47 AM EDT Larisa Hamilton [facility] LAB BLOOD ORDERABLES Final R esult [facility]
[address] [place] [address], * (ABNORMAL) CBC Auto Differential (04/09/2025 4:18 AM EDT) Pathologist [facility] WBC 11.00(H) 3.40 - 10.80 10*3/mm3 04/09/2025 4:50 AM EDT [facility] RBC 4.70 4.14 - 5.80 10*6/mm3 04/09/2025 4:50 AM EDT [facility] Hemoglobin 13.0 13.0 - 17.7 g/dL 04/09/2025 4:50 AM EDT [facility] Hematocrit 40.4 37.5 - 51.0 % 04/09/2025 4:50 AM EDT [facility] MCV 86.0 79.0 - 97.0 fL 04/09/2025 4:50 AM EDT [facility] MCH 27.7 26.6 - 33.0 pg 04/09/2025 4:50 AM EDT [facility] MCHC 32.2 31.5 - 35.7 g/dL 04/09/2025 4:50 AM EDT [facility] RDW 12.8 12.3 - 15.4 % 04/09/2025 4:50 AM [facility] RDW-SD 39.9 37.0 - 54.0 fl 04/09/2025 4:50 AM [facility] MPV 10.0 6.0 - 12.0 fL 04/09/2025 4:50 AM [facility] Platelets 211 140 - 450 10*3/mm3 04/09/2025 4:50 AM [facility] Neutrophil % 74.8 42.7 [...] 0.10 - 0.90 10*3/mm3 04/09/2025 4:50 AM [facility] Eosinophils, Absolute 0.07 0.00 - 0.40 10*3/mm3 04/09/[facility] Basophils, Absolute 0.04 0.00 - 0.20 10*3/mm3 04/09/2025 4:50 AM EDT [facility] Immature Grans, Absolute 0.03 0.00 - 0.05 10*3/mm3 04/09/2025 4:50 AM EDT [facility] nRBC 0.0 0.0 - 0.2 /100 WBC 04/09/2025 4:50 AM EDT [facility] Blood Venipuncture / Unknown 04/09/2025 4:18 AM EDT 04/09/2025 4:31 AM EDT Sushil Dean Jr., MD LAB BLOOD ORDERABLES Fi nal Result Performing Organization Address City/[facility]/ZIP Co de Phone Number [facility]
[address] [place] [address], * Heparin Anti-Xa (04/09/2025 4:18 AM EDT) Heparin Anti-Xa (UFH) 0.41 0.30 - 0.70 IU/ml 04/09/2025 4:53 AM EDT [facility] Blood Venipuncture / Unknown 04/09/2025 4:18 AM EDT 04/09/2025 4:31 AM EDT Una LundbergD LAB BLOOD ORDERABLES Final R esult [facility]
[address] [place] [address], * (ABNORMAL) Basic Metabolic Panel (04/09/2025 4:18 AM EDT) Glucose 147(H) 65 - 99 mg/dL 04/09/2025 5:33 AM EDT [facility] BUN 23.0(H) 6.0 - 20.0 mg/dL 04/09/2025 5:33 AM EDT [facility] Creatinine 1.15 0.76 - 1.27 mg/dL 04/09/2025 5:33 AM EDT [facility] Sodium 135(L) 136 - 145 mmol/L 04/09/2025 5:33 AM EDT [facility] Potassium 4.2 3.5 - 5.2 mmol/L 04/09/2025 5:33 AM EDT [facility] Chloride 100 98 - 107 mmol/L 04/09/2025 5:33 AM EDT [facility] CO2 26.0 22.0 - 29.0 mmol/L 04/09/2025 5:33 AM EDT [facility] Calcium 8.2(L) 8.6 - 10.5 mg/dL 04/09/2025 5:33 AM EDT [facility] BUN/Creatinine Ratio 20.0 7.0 - 25.0 04/09/2025 5:33 AM EDT [facility] Anion Gap 9.0 5.0 - 15.0 mmol/L 04/09/2025 5:33 AM EDT [facility] eGFR 80.5 >60.0 mL/min/1.7 3 04/09/2025 5:33 AM EDT [facility] Blood Venipuncture / Unknown 04/09/2025 4:18 AM EDT 04/09/2025 4:29 AM EDT [facility] - 04/09/2025 5:33 AM [...] MD LAB BLOOD ORDERABLES Fi nal Result [facility]
[address] [place] [address], * Wound Culture - Swab, Leg, Right (04/08/2025 3:40 PM EDT) Wound Culture No growth at 3 days ALIZA 04/11/2025 10:40 AM EDT [facility] Gram Stain Few (2+) WBCs seen 04/11/2025 10:40 AM EDT [facility] Gram Stain No organisms seen 04/11/2025 10:40 AM EDT [facility] Swab Structure of right lower limb / Unknown 04/08/2025 3:40 PM EDT 04/08/2025 8:05 PM EDT us Sushil Dean Jr., MD MICROBIOLOGY - GENERAL ORDERABLES Final Result Performing Organization Address City/[facility]/ZIP Co de Phone Number [facility]
[address] [place] [address], [facility]
[address] [place] [address], * Anaerobic Culture - Swab, Leg, Right (04/08/2025 3:40 PM EDT) Anaerobic Culture No anaerobes isolated at 5 days ALIZA 04/13/2025 7:24 AM EDT [facility] Swab Structure of right lower limb / Unknown 04/08/2025 3:40 PM EDT 04/08/2025 8:05 PM EDT us Sushil Dean Jr., MD MICROBIOLOGY - GENERAL ORDERABLES Final Result Performing Organization Address City/[facility]/ZIP Co de Phone Number [facility]
[address] [place] [address], * Scan Slide (04/08/2025 8:41 AM EDT) RBC Morphology Normal Normal 04/08/2025 11:02 AM EDT [facility] WBC Morphology Normal Normal 04/08/2025 11:02 AM EDT [facility] Platelet Estimate Adequate Normal 04/08/2025 11:02 AM EDT [facility] Clumped Platelets Present None Seen 04/08/2025 11:02 AM EDT [facility] Blood Venipuncture / Unknown 04/08/2025 8:41 AM EDT 04/08/2025 9:10 AM EDT Una Minda PharmD LAB BLOOD ORDERABLES Final R esult [facility]
[address] [place] [address], * (ABNORMAL) CBC Auto Differential (04/08/2025 8:41 AM EDT) WBC 10.07 3.40 - 10.80 10*3/mm3 04/08/2025 11:02 AM EDT [facility] RBC 5.01 4.14 - 5.80 10*6/mm3 04/08/2025 11:02 AM EDT [facility] Hemoglobin 14.0 13.0 - 17.7 g/dL 04/08/2025 11:02 AM EDT [facility] Hematocrit 42.7 37.5 - 51.0 % 04/08/2025 11:02 AM EDT [facility] MCV 85.2 79.0 - 97.0 fL 04/08/2025 11:02 AM EDT [facility] MCH 27.9 26.6 - 33.0 pg 04/08/2025 11:02 AM EDT [facility] MCHC 32.8 31.5 - 35.7 g/dL 04/08/2025 11:02 AM EDT [facility] RDW 12.6 12.3 - 15.4 % 04/08/2025 11:02 AM EDT [facility] RDW-SD 38.9 [...] - 0.05 10*3/mm3 04/08/2025 11:02 AM EDT [facility] nRBC 0.0 0.0 - 0.2 /100 WBC 04/08/2025 11:02 AM EDT [facility] Blood Venipuncture / Unknown 04/08/2025 8:41 AM EDT 04/08/2025 9:10 AM EDT Una Perla PharmD LAB BLOOD ORDERABLES Final R esult [facility]
[address] [place] [address], * (ABNORMAL) Basic Metabolic Panel (04/08/2025 8:41 AM EDT) Glucose 125(H) 65 - 99 mg/dL 04/08/2025 9:51 AM EDT [facility] BUN 13.2 6.0 - 20.0 mg/dL 04/08/2025 9:51 AM EDT [facility] Creatinine 0.69(L) 0.76 - 1.27 mg/dL 04/08/2025 9:51 AM EDT [facility] Sodium 136 136 - 145 mmol/L 04/08/2025 9:51 AM EDT [facility] Potassium 4.6 3.5 - 5.2 mmol/L 04/08/2025 9:51 AM EDT [facility] Chloride 102 98 - 107 mmol/L 04/08/2025 9:51 AM EDT [facility] CO2 23.5 22.0 - 29.0 mmol/L 04/08/2025 9:51 AM EDT [facility] Calcium 8.4(L) 8.6 - 10.5 mg/dL 04/08/2025 9:51 AM EDT [facility] BUN/Creatinine Ratio 19.1 7.0 - 25.0 04/08/2025 9:51 AM EDT [facility] Anion Gap 10.5 5.0 - 15.0 mmol/L 04/08/2025 9:51 AM EDT [facility] eGFR 117.0 >60.0 mL/min/1.7 3 04/08/2025 9:51 AM EDT [facility] Blood Venipuncture / Unknown 04/08/2025 8:41 AM EDT 04/08/2025 9:09 AM EDT Narrative [facility] - 04/08/2025 9:51 [...] Address City/[facility]/ZIP Co de Phone Number [facility]
[address] [place] [address], * Heparin Anti-Xa (04/08/2025 8:41 AM EDT) Heparin Anti-Xa (UFH) 0.33 0.30 - 0.70 IU/ml 04/08/2025 9:40 AM EDT [facility] Blood Venipuncture / Unknown 04/08/2025 8:41 AM EDT 04/08/2025 9:10 AM EDT Sushil Dean Jr., MD LAB BLOOD ORDERABLES Fi nal Result Performing Organization Address City/[facility]/ZIP Co de Phone Number [facility]
[address] [place] [address], * FL C Arm During Surgery (04/07/2025 9:32 PM EDT) Narrative SYSTEMGENERATED, DOCUMENTATION - 04/07/2025 9:38 PM EDT This procedure was auto-finalized with no dictation required. us Sushil Dean Jr., MD IMG FLUOROSCOPY ORDERAB LES Final Result * Wound Culture - Swab, Leg, Right (04/07/2025 9:14 PM EDT) Wound Culture No growth at 3 days ALIZA 04/11/2025 10:40 AM EDT [facility] Gram Stain Occasional WBCs seen 04/11/2025 10:40 AM EDT [facility] Gram Stain No organisms seen 04/11/2025 10:40 AM EDT [facility] Swab Structure of right lower limb / Unknown Collection / Unknown 04/07/2025 9:14 PM EDT 04/08/2025 4:36 AM EDT us Sushil Dean Jr., MD MICROBIOLOGY - GENERAL ORDERABLES Final Result Performing Organization Address City/[facility]/ZIP Co de Phone Number [facility]
[address] [place] [address], [place] [phone] [facility]
[address] [place] [address], [place] [phone] * Anaerobic Culture - Swab, Leg, Right (04/07/2025 9:14 PM EDT) Anaerobic Culture No anaerobes isolated at 5 days ALIZA 04/13/2025 7:21 AM EDT [facility] Swab Structure of right lower limb / Unknown Collection / Unknown 04/07/2025 9:14 PM EDT 04/08/2025 4:36 AM EDT us Sushil Dean Jr., MD MICROBIOLOGY - GENERAL ORDERABLES Final Result [facility]
[address] [place] [address], * Anaerobic Culture - Tissue, Leg (04/07/2025 9:13 PM EDT) Anaerobic Culture No anaerobes isolated at 5 days ALIZA 04/13/2025 7:21 AM EDT [facility] Tissue Lower limb structure / Unknown Collection / Unknown 04/07/2025 9:13 PM EDT 04/08/2025 4:54 AM EDT Jason Álvarez DO MICROBIOLOGY - GENERAL ORDERABLE S Final Result Performing Organization Address [facility]/State/ZIP Co de Phone Number [facility]
[address] [place] [address], * Tissue / Bone Culture - Tissue, Leg, Right (04/07/2025 9:13 PM EDT) Tissue Culture No growth at 3 days ALIZA 04/11/2025 10:36 AM EDT [facility] Gram Stain Rare (1+) WBCs seen 04/11/2025 10:36 AM EDT [facility] Gram Stain No organisms seen 04/11/2025 10:36 AM EDT [facility] Tissue Structure of right lower limb / Unknown 04/07/2025 9:13 PM EDT 04/08/2025 4:54 AM EDT Sushil Dean Jr., MD MICROBIOLOGY - GENERAL ORDERABLES Final Result [facility]
[address] [place] [address], [facility]
[address] [place] [address], [place] [phone] * (ABNORMAL) Wound Culture - Swab, Leg, Right (04/07/2025 9:07 PM EDT) Wound Culture Light growth (2+) Staphylococcus aureus, MRSA(A) ALIZA 04/10/2025 10:38 AM EDT [facility] Comment: Methicillin resistant Staphylococcus aureus, Patient may be an isolation risk. Gram Stain Few (2+) WBCs seen 04/10/2025 10:38 AM EDT [facility] Gram Stain No organisms seen 10:38 AM EDT [facility] [...] MD MICROBIOLOGY - GENERAL ORDERABLES Final Result [facility]
[address] [place] [address], [place] [phone] [facility]
[address] [place] [address], [place] [phone] * Anaerobic Culture - Swab, Leg, Right (04/07/2025 9:07 PM EDT) Anaerobic Culture No anaerobes isolated at 5 days ALIZA 04/13/2025 7:21 AM EDT [facility] Swab Structure of right lower limb / Unknown Collection / Unknown 04/07/2025 9:07 PM EDT 04/08/2025 4:36 AM EDT us Sushil Dean Jr., MD MICROBIOLOGY - GENERAL ORDERABLES Final Result [facility]
[address] [place] [address], * Heparin Anti-Xa (04/07/2025 9:10 AM EDT) Pathologist [facility] Heparin Anti-Xa (UFH) 0.30 0.30 - 0.70 IU/ml 04/07/2025 10:12 AM EDT [facility] Blood Venipuncture / Unknown 04/07/2025 9:10 AM EDT 04/07/2025 9:38 AM EDT Una Perla PharmD LAB BLOOD ORDERABLES Final R esult Performing Organization Address City/[facility]/ZIP Co de Phone Number [facility]
[address] [place] [address], * (ABNORMAL) CBC Auto Differential (04/07/2025 9:10 AM EDT) Pathologist [facility] WBC 8.63 3.40 - 10.80 10*3/mm3 04/07/2025 9:50 AM EDT [facility] RBC 5.23 4.14 - 5.80 10*6/mm3 04/07/2025 9:50 AM EDT [facility] Hemoglobin 14.7 13.0 - 17.7 g/dL 04/07/2025 9:50 AM EDT [facility] Hematocrit 44.8 37.5 - 51.0 % 04/07/2025 9:50 AM EDT [facility] MCV 85.7 79.0 - 97.0 fL 04/07/2025 9:50 AM EDT [facility] MCH 28.1 26.6 - 33.0 pg 04/07/2025 9:50 AM EDT [facility] MCHC 32.8 31.5 - 35.7 g/dL 04/07/2025 9:50 AM EDT [facility] RDW 12.8 [...] - 0.05 10*3/mm3 04/07/2025 9:50 AM EDT [facility] nRBC 0.0 0.0 - 0.2 /100 WBC 04/07/2025 9:50 AM EDT [facility] Blood Venipuncture / Unknown 04/07/2025 9:10 AM EDT 04/07/2025 9:38 AM EDT us Jasno Álvarez DO LAB BLOOD ORDERABLES Final Resul t [facility]
[address] [place] [address], * (ABNORMAL) Basic Metabolic Panel (04/07/2025 9:10 AM EDT) Glucose 112(H) 65 - 99 mg/dL 04/07/2025 10:19 AM EDT [facility] BUN 13.1 6.0 - 20.0 mg/dL 04/07/2025 10:19 AM EDT [facility] Creatinine 0.77 0.76 - 1.27 mg/dL 04/07/2025 10:19 AM EDT [facility] Sodium 139 136 - 145 mmol/L 04/07/2025 10:19 AM EDT [facility] Potassium 4.2 3.5 - 5.2 mmol/L 04/07/2025 10:19 AM EDT [facility] Comment:Specimen hemolyzed. Result may be falsely elevated. Chloride 105 98 - 107 mmol/L 04/07/2025 10:19 AM EDT [facility] CO2 24.8 22.0 - 29.0 mmol/L 04/07/2025 10:19 AM EDT [facility] Calcium 8.6 8.6 - 10.5 mg/dL 04/07/2025 10:19 AM EDT [facility] BUN/Creatinine Ratio 17.0 7.0 - 25.0 04/07/2025 10:19 AM EDT [facility] Anion Gap 9.2 5.0 - 15.0 mmol/L 04/07/2025 10:19 AM EDT [facility] eGFR 113.2 >60.0 mL/min/1.7 3 04/07/2025 10:19 AM EDT [facility] Blood Venipuncture / Unknown 04/07/2025 9:10 AM EDT 04/07/2025 9:38 AM EDT Narrative [facility] - 04/07/2025 10:19 [...] DO LAB BLOOD ORDERABLES Final Resul t [facility]
[address] [place] [address], * MRI Tibia Fibula Right With & [...] [place] 04/07/2025 9:58 AM EDT Workstation ID: [id number] Narrative 04/07/2025 9:58 AM EDT MRI TIBIA [...] [place] 04/07/2025 9:58 AM EDT Workstation ID: [id number] Sushil Dean Jr., MD IMG MRI ORDERABLES Mary Beth l Result * Heparin Anti-Xa (04/07/2025 1:42 AM EDT) [facility] Heparin Anti-Xa (UFH) 0.38 0.30 - 0.70 IU/ml 04/07/2025 2:14 AM EDT [facility] Blood Venipuncture / Unknown 04/07/2025 1:42 AM EDT 04/07/2025 1:54 AM EDT Chelsie Turpin [facility] LAB BLOOD ORDERABLES Final R esult [facility]
[address] [place] [address], * Heparin Anti-Xa (04/06/2025 7:16 PM EDT) [facility] Heparin Anti-Xa (UFH) 0.33 0.30 - 0.70 IU/ml 04/06/2025 7:50 PM EDT [facility] Blood Venipuncture / Unknown 04/06/2025 7:16 PM EDT 04/06/2025 7:35 PM EDT Cherri Beatty [facility] LAB BLOOD ORDERABLES Final Res ult Performing Organization Address [facility] Co de Phone Number [facility]
[address] [place] [address], * Potassium (04/06/2025 7:16 PM EDT) [facility] Potassium 4.0 3.5 - 5.2 mmol/L 04/06/2025 7:53 PM EDT [facility] Blood Venipuncture / Unknown 04/06/2025 7:16 PM EDT 04/06/2025 7:35 PM EDT Jason Álvarez DO LAB BLOOD ORDERABLES Final Resul t Performing Organization Address [facility] de Phone Number [facility]
[address] [place] [address], * (ABNORMAL) Heparin Anti-Xa (04/06/2025 12:36 PM EDT) [facility] Heparin Anti-Xa (UFH) 0.24(L) 0.30 - 0.70 IU/ml 04/06/2025 1:23 PM EDT [facility] Blood Venipuncture / Unknown 04/06/2025 12:36 PM EDT 04/06/2025 1:07 PM EDT Una Perla PharmD LAB BLOOD ORDERABLES Final R esult Performing Organization Address [facility] Co de Phone Number [facility]
[address] [place] [address], * (ABNORMAL) Heparin Anti-Xa (04/06/2025 3:42 AM EDT) [facility] Heparin Anti-Xa (UFH) 0.25(L) 0.30 - 0.70 IU/ml 04/06/2025 5:30 AM EDT [facility] Blood Venipuncture / Unknown 04/06/2025 3:42 AM EDT 04/06/2025 4:59 AM EDT Chelsie Dyana [facility] LAB BLOOD ORDERABLES Final R esult [facility]
[address] [place] [address], * (ABNORMAL) Basic Metabolic Panel (04/06/2025 3:42 AM EDT) [facility] Glucose 94 65 - 99 mg/dL 04/06/2025 5:59 AM EDT [facility] BUN 12.8 6.0 - 20.0 mg/dL 04/06/2025 5:59 AM EDT [facility] Creatinine 0.80 0.76 - 1.27 mg/dL 04/06/2025 5:59 AM EDT [facility] Sodium 138 136 - 145 mmol/L 04/06/2025 5:59 AM EDT [facility] Potassium 3.6 3.5 - 5.2 mmol/L 04/06/2025 5:59 AM EDT [facility] Chloride 103 98 - 107 mmol/L 04/06/2025 5:59 AM EDT [facility] CO2 24.2 22.0 - 29.0 mmol/L 04/06/2025 5:59 AM EDT [facility] Calcium 8.0(L) 8.6 - 10.5 mg/dL 04/06/2025 5:59 AM EDT [facility] BUN/Creatinine Ratio 16.0 7.0 - 25.0 04/06/2025 5:59 AM EDT [facility] Anion Gap 10.8 5.0 - 15.0 mmol/L 04/06/2025 5:59 AM EDT [facility] eGFR 111.9 >60.0 mL/min/1.7 3 04/06/2025 5:59 AM EDT [facility] Blood Venipuncture / Unknown 04/06/2025 3:42 AM EDT 04/06/2025 5:20 AM EDT [facility] - 04/06/2025 5:59 AM [...] DO LAB BLOOD ORDERABLES Final Resul t [facility]
[address] [place] [address], * (ABNORMAL) CBC Auto Differential (04/06/2025 3:41 AM EDT) WBC 10.86(H) 3.40 - 10.80 10*3/mm3 04/06/2025 5:04 AM EDT [facility] RBC 5.08 4.14 - 5.80 10*6/mm3 04/06/2025 5:04 AM EDT [facility] Hemoglobin 13.9 13.0 - 17.7 g/dL 04/06/2025 5:04 AM EDT [facility] Hematocrit 43.7 37.5 - 51.0 % 04/06/2025 5:04 AM EDT [facility] MCV 86.0 79.0 - 97.0 fL 04/06[facility]25 [facility] MCH 27.4 26.6 - 33.0 [...] 0.0 - 1.5 % 04/06/2025 [facility] Immature Grans % 0.3 0.0 - 0.5 % 04/06/2025 5:04 AM [facility] Neutrophils, Absolute 7.09(H) 1.70 - 7.00 10*3/mm3 04/06/2025 5:[facility] Lymphocytes, Absolute 2.23 0.70 - 3.10 10*3/mm3 04/06/2025 5:[facility] Monocytes, Absolute 1.28(H) 0.10 - 0.90 10*3/mm3 04/06/2025 5:04 AM EDT [facility] Eosinophils, Absolute 0.20 0.00 - 0.40 10*3/mm3 04/06/2025 5:04 AM EDT [facility] Basophils, Absolute 0.03 0.00 - 0.20 10*3/mm3 04/06/2025 5:04 AM EDT [facility] Immature Grans, Absolute 0.03 0.00 - 0.05 10*3/mm3 04/06/2025 5:04 AM EDT [facility] nRBC 0.0 0.0 - 0.2 /100 WBC 04/06/2025 5:04 AM EDT [facility] Blood Venipuncture / Unknown 04/06/2025 3:41 AM EDT 04/06/2025 4:58 AM EDT Jason Álvarez DO LAB BLOOD ORDERABLES Final Resul t Performing Organization Address City/[facility] Co de Phone Number [facility]
[address] [place] [address], [place] [phone] * Heparin Anti-Xa (04/05/2025 8:43 PM EDT) Pathologist [facility] Heparin Anti-Xa ([facility]) 0.38 0.30 - 0.70 IU/ml 04/05/2025 9:09 PM EDT [facility] Blood Venipuncture / Unknown 04/05/2025 8:43 PM EDT 04/05/2025 8:55 PM EDT [facility] B[facility]OD ORDERABLES Final Res ult Performing Organization Address City/[facility] Co de Phone Number [facility]
[address] [place] [address], [place] [phone] * CK (04/05/2025 12:15 PM EDT) Creatine Kinase 140 20 - 200 U/L 04/05/2025 1:31 PM EDT [facility] Blood Venipuncture / Unknown 04/05/2025 12:15 PM EDT 04/05/2025 1:03 PM EDT Carlton Mead MD LAB BLOOD ORDERABLES Final R esult Performing Organization Address City/[facility]/ZIP Co de Phone Number [facility]
[address] [place] [address], * (ABNORMAL) Heparin Anti-Xa (04/05/2025 12:15 PM EDT) [facility] Heparin Anti-Xa (UFH) 0.17(L) 0.30 - 0.70 IU/ml 04/05/2025 1:21 PM EDT [facility] Blood Venipuncture / Unknown 04/05/2025 12:15 PM EDT 04/05/2025 1:04 PM EDT Una Perla PharmD LAB BLOOD ORDERABLES Final R esult Performing Organization Address City/[facility] Co de Phone Number [facility]
[address] [place] [address], * (ABNORMAL) aPTT (04/05/2025 3:54 AM EDT) [facility] PTT 35.3(L) 60.0 - 90.0 seconds 04/05/2025 4:31 AM EDT [facility] Blood Venipuncture / Unknown 04/05/2025 3:54 AM EDT 04/05/2025 4:15 AM EDT Narrative [facility] - 04/05/2025 4:31 AM EDT PTT = The equivalent PTT values for the therapeutic range of heparin levels at 0.3 to 0.5 U/ml are 60 to 70 seconds. [facility] LAB BLOOD ORDERABLES Final R esult [facility]
[address] [place] [address], * Heparin Anti-Xa (04/05/2025 3:54 AM EDT) Pathologist [facility] Heparin Anti-Xa (UFH) 0.30 0.30 - 0.70 IU/ml 04/05/2025 4:32 AM EDT [facility] Blood Venipuncture / Unknown 04/05/2025 3:54 AM EDT 04/05/2025 4:15 AM EDT [facility] LAB BLOOD ORDERABLES Final R esult Performing Organization Address City/[facility]/ZIP Co de Phone Number [facility]
[address] [place] [address], * (ABNORMAL) CBC Auto Differential (04/05/2025 3:54 AM EDT) [facility] WBC 11.18(H) 3.40 - 10.80 10*3/mm3 04/05/2025 4:20 AM EDT [facility] RBC 5.00 4.14 - 5.80 10*6/mm3 04/05/2025 4:20 AM EDT [facility] Hemoglobin 13.9 13.0 - 17.7 g/dL 04/05/2025 4:20 AM EDT [facility] Hematocrit 42.4 37.5 - 51.0 % 04/05/2025 4:20 AM EDT [facility] MCV 84.8 79.0 - 97.0 fL 04/05/2025 4:20 AM EDT [facility] MCH 27.8 26.6 - 33.0 pg 04/05/2025 4:20 AM EDT [facility] MCHC 32.8 [...] - 0.20 10*3/mm3 04/05/2025 4:20 AM EDT [facility] Immature Grans, Absolute 0.04 0.00 - 0.05 10*3/mm3 04/05/2025 4:20 AM EDT [facility] nRBC 0.0 0.0 - 0.2 /100 WBC 04/05/2025 4:20 AM EDT [facility] Blood Venipuncture / Unknown 04/05/2025 3:54 AM EDT 04/05/2025 4:16 AM EDT Una Perla PharmD LAB BLOOD ORDERABLES Final R esult [facility]
[address] [place] [address], * (ABNORMAL) Basic Metabolic Panel (04/05/2025 3:54 AM EDT) Glucose 152(H) 65 - 99 mg/dL 04/05/2025 4:40 AM EDT [facility] BUN 17.3 6.0 - 20.0 mg/dL 04/05/2025 4:40 AM EDT [facility] Creatinine 0.92 0.76 - 1.27 mg/dL 04/05/2025 4:40 AM EDT [facility] Sodium 136 136 - 145 mmol/L 04/05/2025 4:40 AM EDT [facility] Potassium 3.9 3.5 - 5.2 mmol/L 04/05/2025 4:40 AM EDT [facility] Chloride 103 98 - 107 mmol/L 04/05/2025 4:40 AM EDT [facility] CO2 24.0 22.0 - 29.0 mmol/L 04/05/2025 4:40 AM EDT [facility] Calcium 7.8(L) 8.6 - 10.5 mg/dL 04/05/2025 4:40 AM EDT [facility] BUN/Creatinine Ratio 18.8 7.0 - 25.0 04/05/2025 4:40 AM EDT [facility] Anion Gap 9.0 5.0 - 15.0 mmol/L 04/05/2025 4:40 AM EDT [facility] eGFR 105.2 >60.0 mL/min/1.7 3 04/05/2025 4:40 AM EDT [facility] Blood Venipuncture [...] MD LAB BLOOD ORDERABLES Final Re sult [facility]
[address] [place] [address], * (ABNORMAL) aPTT (04/05/2025 12:18 AM EDT) PTT 33.6(L) 60.0 - 90.0 seconds 04/05/2025 12:53 AM EDT [facility] Blood Venipuncture / Unknown 04/05/2025 12:18 AM EDT 04/05/2025 12:37 AM EDT [facility] - 04/05/2025 12:53 AM EDT PTT = The equivalent PTT values for the therapeutic range of heparin levels at 0.3 to 0.5 U/ml are 60 to 70 seconds. [employer] LAB BLOOD ORDERABLES Final R esult [facility]
[address] [place] [address], [place] [phone] * (ABNORMAL) Protime-INR (04/05/2025 12:18 AM EDT) Protime 15.9(H) 12.2 - 15.3 Seconds 04/05/2025 12:53 AM EDT [facility] INR 1.19(H) 0.89 - 1.12 04/05/2025 12:53 AM EDT [facility] Blood Venipuncture / Unknown 04/05/2025 12:18 AM EDT 04/05/2025 12:37 AM EDT [employer] LAB BLOOD ORDERABLES Final R esult Performing Organization Address [facility] Co de Phone Number [facility]
[address] [place] [address], [place] [phone] * Heparin Anti-Xa (04/05/2025 12:18 AM EDT) Pathologist [facility] Heparin Anti-Xa (UFH) 0.39 0.30 - 0.70 IU/ml 04/05/2025 12:54 AM EDT [facility] Blood Venipuncture / Unknown 04/05/2025 12:18 AM EDT 04/05/2025 12:37 AM EDT [employer] LAB BLOOD ORDERABLES Final R esult Performing Organization Address City/[facility]/ZIP Co de Phone Number [facility]
[address] [place] [address], [place] [phone] * MRI Tibia Fibula Right With & [...] MD 04/04/2025 11:00 PM EDT Workstation ID: [id number] Narrative 04/04/2025 11:00 PM EDT MRI TIBIA [...] MD 04/04/2025 11:00 PM EDT Workstation ID: [id number] Leonora Shepherd MD IMG MRI ORDERABLES Final Resu lt * POC Creatinine (04/04/2025 2:49 PM EDT) Creatinine 1.10 0.60 - 1.30 mg/dL 04/07/2025 7:14 PM EDT [facility] Comment:Serial Number: [id number]: [id number] Venous Blood 04/04/2025 2:49 PM EDT 04/07/2025 7:14 PM EDT Jason Álvarez DO POINT OF CARE TEST ORDERABLES Fi nal Result [facility]
[address] [place] [address], [place] [phone] * (ABNORMAL) CBC Auto Differential (04/04/2025 2:47 PM EDT) [facility] Signature WBC 12.72(H) 3.40 - 10.80 10*3/mm3 04/04/2025 2:56 PM EDT [facility] RBC 5.64 4.14 - 5.80 10*6/mm3 04/04/2025 2:56 PM EDT [facility] Hemoglobin 15.3 13.0 - 17.7 g/dL 04/04/2025 2:56 PM EDT [facility] Hematocrit 47.9 37.5 - 51.0 % 04/04/2025 2:56 PM EDT [facility] MCV 84.9 79.0 - 97.0 fL 04/04/2025 2:56 PM EDT [facility] MCH 27.1 26.6 - 33.0 pg 04/04/2025 2:56 PM EDT [facility] MCHC 31.9 31.5 - 35.7 g/dL 04/04/2025 2:56 PM EDT [facility] RDW 13.1 12.3 - 15.4 % 04/04/2025 2:56 PM EDT [facility] RDW-SD 40.3 37.0 - 54.0 fl 04/04/2025 2:56 PM EDT [facility] MPV 9.4 6.0 - 12.0 fL 04/04/2025 2:56 PM EDT [facility] Platelets 232 140 - 450 10*3/mm3 04/04/2025 2:56 PM EDT [facility] Neutrophil % 74.9 42.7 - 76.0 % 04/04/2025 2:56 PM EDT [facility] Lymphocyte % 13.1(L) 19.6 - 45.3 % 04/04/2025 2:56 PM EDT [facility] Monocyte % 11.2 5.0 - 12.0 % 04/04/2025 2:56 PM EDT [facility] Eosinophil % 0.4 0.3 - 6.2 % 04/04/2025 2:56 PM EDT [facility] Basophil % 0.2 0.0 - 1.5 % 04/04/2025 2:56 PM EDT [facility] Immature Grans % 0.2 0.0 - 0.5 % 04/04/2025 2:56 PM EDT [facility] Neutrophils, Absolute 9.52(H) 1.70 - 7.00 10*3/mm3 04/04/2025 2:56 PM EDT [facility] Lymphocytes, Absolute 1.66 0.70 - 3.10 10*3/mm3 04/04/2025 2:56 PM EDT [facility] Monocytes, Absolute 1.43(H) 0.10 - 0.90 10*3/mm3 04/04/2025 2:56 PM EDT [facility] Eosinophils, Absolute 0.05 0.00 - 0.40 10*3/mm3 04/04/2025 2:56 PM EDT [facility] Basophils, Absolute 0.03 0.00 - 0.20 10*3/mm3 04/04/2025 2:56 PM EDT [facility] Immature Grans, Absolute 0.03 0.00 - 0.05 10*3/mm3 04/04/2025 2:56 PM EDT [facility] nRBC 0.0 0.0 - 0.2 /100 WBC 04/04/2025 2:56 PM EDT [facility] Blood Venipuncture / Unknown 04/04/2025 2:47 PM EDT 04/04/2025 2:52 PM EDT us Mario Crowley DO LAB BLOOD ORDERABLES Fin al Result [facility]
[address] [place] [address], * (ABNORMAL) C-reactive Protein (04/04/2025 2:47 PM EDT) Pathologist [facility] C-Reactive Protein 8.57(H) 0.00 - 0.50 mg/dL 04/04/2025 3:26 PM EDT [facility] Blood Venipuncture / Unknown 04/04/2025 2:47 PM EDT 04/04/2025 2:52 PM EDT Mario Ortiz Keo LAB BLOOD ORDERABLES Fin al Result [facility]
[address] [place] [address], * (ABNORMAL) Sedimentation Rate (04/04/2025 2:47 PM EDT) [facility] Sed Rate 51(H) 0 - 15 mm/hr 04/04/2025 3:06 PM EDT [facility] Blood Venipuncture / Unknown 04/04/2025 2:47 PM EDT 04/04/2025 2:52 PM EDT Mario Ortiz Keo LAB BLOOD ORDERABLES Fin al Result Performing Organization Address City/[facility]/ZIP Co de Phone Number [facility]
[address] [place] [address], * Comprehensive Metabolic Panel (04/04/2025 2:47 PM EDT) [facility] Glucose 90 65 - 99 mg/dL 04/04/2025 3:26 PM EDT [facility] BUN 18.3 6.0 - 20.0 mg/dL 04/04/2025 3:26 PM EDT [facility] Creatinine 0.94 0.76 - 1.27 mg/dL 04/04/2025 3:26 PM EDT [facility] Sodium 136 136 - 145 mmol/L 04/04/2025 3:26 PM EDT [facility] Potassium 3.8 3.5 - 5.2 mmol/L 04/04/2025 3:26 PM EDT [facility] Chloride 100 98 - 107 mmol/L 04/04/2025 3:26 PM EDT [facility] CO2 25.3 22.0 - 29.0 mmol/L 04/04/2025 3:26 PM EDT [facility] Calcium 8.6 8.6 - 10.5 mg/dL 04/04/2025 3:26 PM EDT [facility] Total Protein 7.3 6.0 - 8.5 g/dL 04/04/2025 3:26 PM EDT [facility] Albumin 4.1 3.5 - 5.2 g/dL 04/04/2025 3:26 PM EDT [facility] ALT (SGPT) 26 1 - 41 U/L 04/04/2025 3:26 PM EDT [facility] AST (SGOT) 25 1 - 40 U/L 04/04/2025 3:26 PM EDT [facility] Alkaline Phosphatase 106 39 - 117 U/L 04/04/2025 3:26 PM T [facility] Total Bilirubin 1.0 0.0 - 1.2 mg/dL 04/04/2025 3:26 PM EDT [facility] Globulin 3.2 gm/dL 04/04/2025 3:26 PM T [facility] Comment:Calculated Result A/G Ratio 1.3 g/dL 04/04/2025 3:26 PM EDT [facility] BUN/Creatinine Ratio 19.5 7.0 - 25.0 04/04/2025 3:26 PM T [facility] Anion Gap 10.7 5.0 - 15.0 mmol/L 04/04/2025 3:26 PM T [facility] eGFR 102.5 >60.0 mL/min/1.7 3 04/04/2025 3:26 PM [facility] Blood Venipuncture / Unknown 04/04/2025 2:47 PM EDT 04/04/2025 2:52 PM EDT Narrative [facility] - 04/04/2025 3:26 [...] DO LAB BLOOD ORDERABLES Fin al Result [facility]
[address] [place] [address], documented in this encounter Visit Diagnoses Diagnosis [...] Salazar, KELL)1943 (Given - Provider: Anahy Marcelino, COATINGS INSPECTOR)2129 (Canceled Entry - Provider: Anahy Marcelino COATINGS INSPECTOR - Comment: previously given) 0837 (Given - [...] Alberto Dillon RN) 905 (Given - Provider: Shilrey Hart RN)2030 (Given - Provider: Alberto Dillon [...] medication prescribed for a lower pain scale. ([facility]) If given for pain, use the [...] at 2100 1007 (Given - Provider: Shirley Hatr RN)2026 (Given - Provider: Alberto Dillon RN) [...] Continuous Medication Order 04/09/2025 04/10/2025 04/11/2025 heparin 01873 units/250 mL (100 units/mL) in 0.45 % NaCl infusion (CANCELED) 18 Units/kg/hr 134 kg (24.12 mL/hr, rounded to 24.1 mL/hr), Intravenous, Titrated, Starting on 04/05/25 at 0045, Pharmacy dosing - VTE (PE/DVT) - Boluses (No initial bolus), Indications: DVT/PE (active thrombosis) 0614 (New Bag - Provider: Bob Rosenberg RN)0712 (Handoff - Provider: Bob Rosenberg RN)1633 (New Bag - Provider: hSirley Hart RN) 0313 (New Bag - Provider: [...] documented as of this encounter Care Teams Plastic Surgery Manager Relationship Specialty Start Date End Date Provider, [place] [address] PCP - General 05/09/23 documented as of this encounter
--- OUTSIDE RECORDS SUMMARY | 2025-04-08 15:34 | XMS_ITS | Encounter Summary ---
Author Organization [facility] Address [address] [place] [address] Care Team Providers Care Transit Department Clerk Name Role Phone Provider, No Known Primary Care Provider Unavail able Reason for Visit * Auth/Cert Specialty Diagnoses / Procedures Referred By Bulmaro muniz Referred To Contact Diagnoses Right BKA infection Referral ID Status Reason Start Date Expiration Date Visits Re quested Visits Authorized [id number] 1 1 Encounter Details Date Type Department Care Team (Late st Contact Info) Description 04/08/2025 3:34 PM EDT Anesthesia Event [facility] OR [address] [place] [address] Ulises Hoffman MD [address] [place] [address] Jairo Brooks MD [address] [place] [address] Anesthesia Record Procedure Summary Procedure Name Responsible [...] Recorded In the past 12 months has [employer], oil, or water [employer] threatened to shut off services in your [...] or training? Not on file Preferred Language Sao Tomean 04/07/2025 Sex and Gender Information Value Date Recorded Sex Assigned at Not on file Legal Sex Male 7:30 PM EDT Gender Identity Not on file Sexual Orientation Not on file documented as of this encounter OR Notes * Anesthesia Postprocedure Evaluation - Stan Casillas CRNA - 04/08/2025 4:40 PM EDT Patient: Won Dennis Procedure Summary Date: 04/08/25 Room / Location: [facility] OR [address] [place] [address] [facility] OR Anesthesia Start: 1533 Anesthesia Stop: [...] ROS Abdominal Substance History - negative use MORTGAGE BROKER negative receiving dock checker ROS Other Anesthesia Plan ASA 3 general [...] documented as of this encounter Care Teams Transit Department Clerk Relationship Specialty Start Date End Date Provider, [place] [address] PCP - General 05/09/23 documented as of this encounter
--- OUTSIDE RECORDS SUMMARY | 2025-05-01 09:24 | XMS_ITS | Clinical Summary ---
Author Organization [facility] Address [address] [facility] [address] [place] [address] Phone Care Team Providers Care Hair Worker Name Role Phone Unavailable Unavailable Conditions or Problems No information available. Medications No information available. Medications Administered No information available. Allergies, Adverse Reactions, Alerts No information available. Results No information available. Plan of Care No information available. Procedures No information available. Vital Signs No information available. Immunizations No information available. Advance Directives No information available.
[2025-05-01 09:25] VITALS: BP 105/75; PULSE 80; RESP 20; TEMP 36.9; O2SAT 95
[2025-05-01] MEDS: DAPTOmycin 1,000 MG in 0.9 % SODIUM CHLORIDE 50 ML 100 MG IV (09:25)
--- OUTSIDE RECORDS SUMMARY | 2025-05-01 09:25 | XMS_ITS | Encounter Summary ---
Author Organization Healthcare Address [address] [place] [address] Care Team Providers Care Fashion Artist Name Role Phone Unavailable Primary Care Provider Unavailabl e Encounter Details Date Type Department Care Team (Late st Contact Info) Description 05/13/2023 Lab Requisition [facility] [address] [place] [address] Sushil Dean MD [address] [facility]. [address] [place] [address] Encounter for general adult medical examination without [...] O RDERABLES Final Result Performing Organization Address [facility] Co de Phone Number [facility] [address] [place] [address] * Anaerobic Culture (05/13/2023 9:17 AM EDT) Culture No growth at day 4 05/20/2023 10:35 AM EST [facility] Bone 05/13/2023 9:17 AM EDT 05/13/2023 1:25 PM EDT us Sushil Dean MD LAB MICROBIOLOGY - GENERAL O RDERABLES Final Result Performing Organization Address [facility] de Phone Number [facility] [address] [place] [address] * Bone Culture and Gram Stain (05/13/2023 [...] O RDERABLES Final Result Performing Organization Address [facility] de Phone Number [facility] [address] [place] [address] documented in this encounter Visit Diagnoses Diagnosis Encounter for general adult medical examination without abnormal findings documented in this encounter
--- OUTSIDE RECORDS SUMMARY | 2025-05-01 09:25 | XMS_ITS | Encounter Summary ---
Author Organization [facility] Address [address] [place] [address] Care Team Providers Care Fur Drummer Name Role Phone Unavailable Primary Care Provider Unavailabl e Encounter Details Date Type Department Care Team (Late st Contact Info) Description 10/03/2022 Lab Requisition [facility] [address] [place] [address] Dalila Cox MD [address] [place], [place] [id number] Encounter for general adult medical examination without [...] Culture Neelima albicans(A) 10/05/2022 11:58 AM EDT [facility] Comment: This result was determined by MALDI tof Mass spectrometry. This assay was developed and its performance characteristics determined by [facility] as appropriate for clinical purposes. [...] Edited Result - Final [facility] [address] [place] [address] documented in this encounter Visit Diagnoses Diagnosis Encounter for general adult medical examination without abnormal findings documented in this encounter
--- OUTSIDE RECORDS SUMMARY | 2025-05-01 09:25 | XMS_ITS | Clinical Summary ---
Author Organization [facility] Address [address] [place] [address] Care Team Providers Care Coagulator Name Role Phone Provider, No Known Primary [...] Discontinue d(Stop Taking at Discharge) Lactobacillus- Inulin ([facility] Octamer [facility]) capsule Take 200 mg by [...] Description 04/08/2025 3:34 PM EDT Anesthesia [place] [facility] [place] [place] [address] [place] [phone] Ulises Hoffman MD Wells, Jeremy B., MD 04/08/2025 2:45 PM EDT - 04/08/2025 4:04 PM EDT Surgery [facility] OR [address] [place] [address] Sushil Dean Jr., MD LEG DEBRIDEMENT AND IRRIGATION 04/07/2025 8:36 PM EDT Anesthesia Event [facility] OR [address] [place] [address] Luci Alonso DO 04/07/2025 6:00 PM EDT - 04/07/2025 6:52 PM EDT Surgery [facility] OR [address] [place] [address] Sushil Dean Jr., MD LEG DEBRIDEMENT, IRRIGATION 04/04/2025 4:10 PM EDT - 04/11/2025 1:58 PM EDT Hospital Encounter [facility] 5G [address] [place] [address] Mario Crowley DO Anderson, Laurie, [...] 0.6 oz pur e alcohol) [facility] Utilities Answer Date Recorded In the past 12 months has Always Prepped, gas, oil, or water Clink threatened to shut off services in your [...] this topic Medical Devices Implanted Type Area Director Of Graduate Admissions Device Identifier Shelf Expiration Date Model / Serial / Lot Dev Wnd/Cls Contrl Tiss Stratafix Spiral Pls Pds Ct1 0 22cm - [id number] Implanted:Qty: 1 on 04/08/2025 by Sushil Dean Jr., MD at [facility] Implant Right: Leg [employer] 12/07/2025 [id number] / / [id number] Procedures Procedure Name Priority [...] - 450 10*3/mm3 04/11/2025 4:02 AM EDT [facility] Neutrophil % 59.5 42.7 - 76.0 % 04/11/2025 4:02 AM EDT [facility] Lymphocyte % 26.3 19.6 - 45.3 % 04/11/2025 4:02 AM EDT [facility] Monocyte % 9.3 5.0 - 12.0 % 04/11/2025 4:02 AM [facility] Eosinophil % 4.1 0.3 - 6.2 % 04/11/2025 4:02 AM EDT [facility] Basophil % 0.4 0.0 - 1.5 % 04/11/2025 4:02 [facility] Immature Grans % 0.4 0.0 - 0.5 % 04/11/2025 4:02 AM [facility] Neutrophils, Absolute 4.69 1.70 - 7.00 10*3/mm3 04/11/2025 4:02 AM [facility] Lymphocytes, Absolute 2.07 0.70 - 3.10 10*3/mm3 04/11/2025 4:02 AM [facility] Monocytes, Absolute 0.73 0.10 - 0.90 10*3/mm3 04/11/2025 4:02 AM [facility] Eosinophils, Absolute 0.32 0.00 - 0.40 10*3/mm3 04/11/2025 4:02 AM [facility] Basophils, Absolute 0.03 0.00 - 0.20 10*3/mm3 04/11/2025 4:02 AM [facility] Immature Grans, Absolute 0.03 0.00 - 0.05 10*3/mm3 04/11/2025 4:02 AM [facility] nRBC 0.0 0.0 - 0.2 /100 WBC 04/11/2025 4:02 AM [facility] Blood Venipuncture / Unknown 04/11/2025 3:40 AM EDT 04/11/2025 3:59 AM EDT Sushil Dean Jr., MD LAB BLOOD ORDERABLES Fi nal Result [facility]
[address] [place] [address], * (ABNORMAL) Comprehensive Metabolic Panel (04/11/2025 3:40 [...] 3:40 AM EDT 04/11/2025 3:56 AM EDT [facility] - 04/11/2025 4:19 AM [...] race as a factor us Rosario Hill ANIMAL BREEDER LAB BLOOD ORDERABLES Final Result [facility]
[address] [phone], * Heparin Anti-Xa (04/10/2025 3:46 AM EDT) Only the most recent of13 resultswithin the time period is included. Heparin Anti-Xa (UFH) 0.35 0.30 - 0.70 IU/ml 04/10/2025 4:23 AM EDT [facility] Blood Venipuncture / Unknown 04/10/2025 3:46 AM EDT 04/10/2025 3:53 AM EDT Larisa Hamilton [facility] LAB BLOOD ORDERABLES Final R esult [facility]
[address] [place] [address], * (ABNORMAL) Basic Metabolic Panel (04/10/2025 3:46 AM EDT) Only the most recent of6 resultswithin the time period is included. [facility] Glucose 125(H) 65 - 99 mg/dL 04/10/2025 4:20 AM EDT [facility] BUN 15.9 6.0 - 20.0 mg/dL 04/10/2025 4:20 AM EDT [facility] Creatinine 0.77 0.76 - 1.27 mg/dL 04/10/2025 4:20 AM EDT [facility] Sodium 137 136 - 145 mmol/L 04/10/2025 4:20 AM EDT [facility] Potassium 3.9 3.5 - 5.2 mmol/L 04/10/2025 4:20 AM EDT [facility] Chloride 102 98 - 107 mmol/L 04/10/2025 4:20 AM EDT [facility] CO2 26.9 22.0 - 29.0 mmol/L 04/10/2025 4:20 AM EDT [facility] Calcium 7.9(L) 8.6 - 10.5 mg/dL 04/10/2025 4:20 AM EDT [facility] BUN/Creatinine Ratio 20.6 7.0 - 25.0 04/10/2025 4:20 AM EDT [facility] Anion Gap 8.1 5.0 - 15.0 mmol/L 04/10/2025 4:20 AM EDT [facility] eGFR 113.2 >60.0 mL/min/1.7 3 04/10/2025 4:20 AM EDT [facility] Blood Venipuncture / Unknown 04/10/2025 3:46 AM EDT 04/10/2025 3:52 AM EDT Narrative [facility] - 04/10/2025 4:20 AM [...] not include race as a factor Jason Álvaerz DO LAB BLOOD ORDERABLES Final Resul t [facility]
[address] [place] [address], * Wound Culture - Swab, Leg, Right (04/08/2025 3:40 PM EDT) Only the most recent of3 resultswithin the time period is included. Wound Culture No growth at 3 days ALIZA 04/11/2025 10:40 AM EDT [facility] Gram Stain Few (2+) [...] City/[facility]/ZIP Co de Phone Number [facility]
[address] [place] [address], [facility]
[address] [place] [address], [place] [phone] * Anaerobic Culture - Swab, Leg, Right (04/08/2025 3:40 PM EDT) Only the most recent of4 resultswithin the time period is included. Anaerobic Culture No anaerobes isolated at 5 days ALIZA 04/13/2025 7:24 AM EDT [facility] Swab Structure of right lower limb / Unknown 04/08/2025 3:40 PM EDT 04/08/2025 8:05 PM EDT Sushil Dean Jr., MD MICROBIOLOGY - GENERAL ORDERABLES Final Result Performing Organization Address [facility] Co de Phone Number [facility]
[address] [place] [address], * Scan Slide (04/08/2025 8:41 AM EDT) [...] City/[facility]/ZIP Co de Phone Number [facility]
[address] [place] [address], [place] [phone] * FL C Arm During Surgery (04/07/2025 9:32 PM EDT) Narrative SYSTEMGENERATED, DOCUMENTATION - 04/07/2025 9:38 PM EDT This procedure was auto-finalized with no dictation required. us Sushil Dean Jr., MD IMG FLUOROSCOPY ORDERAB LES Final Result * Tissue / Bone Culture - Tissue, Leg, Right (04/07/2025 9:13 PM EDT) Tissue Culture No growth at 3 days ALIZA 04/11/2025 10:36 AM EDT [facility] Gram Stain Rare (1+) WBCs seen 04/11/2025 10:36 AM EDT [facility] Gram Stain No organisms seen 04/11/2025 10:36 AM EDT [facility] Tissue Structure of right lower limb / Unknown 04/07/2025 9:13 PM EDT 04/08/2025 4:54 AM EDT us Sushil Dean Jr., MD MICROBIOLOGY - GENERAL ORDERABLES Final Result [facility]
[address] [place] [address], [facility]
[address] [place] [address], * BH AN ETT AIRWAY (04/07/2025 8:44 [...] [place] 04/07/2025 9:58 AM EDT Workstation ID: [id number] Narrative 04/07/2025 9:58 AM EDT MRI TIBIA [...] [place] 04/07/2025 9:58 AM EDT Workstation ID: [id number] Sushil Dean Jr., MD IMG MRI ORDERABLES Mary Beth l Result * Potassium (04/06/2025 7:16 PM EDT) Potassium 4.0 3.5 - 5.2 mmol/L 04/06/2025 7:53 PM EDT [facility] Blood Venipuncture / Unknown 04/06/2025 7:16 PM EDT 04/06/2025 7:35 PM EDT Jason Álvarez DO LAB BLOOD ORDERABLES Final Resul t Performing Organization Address City/[facility]/ZIP Co de Phone Number [facility]
[address] [place] [address], * CK (04/05/2025 12:15 PM EDT) Creatine Kinase 140 20 - 200 U/L 04/05/2025 1:31 PM EDT [facility] Blood Venipuncture / Unknown 04/05/2025 12:15 PM EDT 04/05/2025 1:03 PM EDT Carlton Mead MD LAB BLOOD ORDERABLES Final R esult Performing Organization Address City/[facility]/ZIP Co de Phone Number [facility]
[address] [place] [address], * (ABNORMAL) aPTT (04/05/2025 3:54 AM EDT) [...] 0.5 U/ml are 60 to 70 seconds. [employer] LAB BLOOD ORDERABLES Final R esult Performing Organization Address City/[facility]/ZIP Co de Phone Number [facility]
[address] [place] [address], * (ABNORMAL) Protime-INR (04/05/2025 12:18 AM EDT) Pathologist [facility] Protime 15.9(H) 12.2 - 15.3 Seconds 04/05/2025 12:53 AM EDT [facility] INR 1.19(H) 0.89 - 1.12 04/05/2025 12:53 AM EDT [facility] Blood Venipuncture / Unknown 04/05/2025 12:18 AM EDT 04/05/2025 12:37 AM EDT [employer] LAB BLOOD ORDERABLES Final R esult Performing Organization Address City/[facility]/ZIP Co de Phone Number [facility]
[address] [place] [address], * POC Creatinine (04/04/2025 2:49 PM EDT) Pathologist [facility] Creatinine 1.10 0.60 - 1.30 mg/dL 04/07/2025 7:14 PM EDT [facility] Comment:Serial Number: [id number] 7Operator: [id number] Venous Blood 04/04/2025 2:49 PM EDT 04/07/2025 7:14 PM EDT Jason Álvarez DO POINT OF CARE TEST ORDERABLES Fi nal Result Performing Organization Address [facility] Co de Phone Number [facility]
[address] [place] [address], * (ABNORMAL) Sedimentation Rate (04/04/2025 2:47 PM EDT) Sed Rate 51(H) 0 - 15 mm/hr 04/04/2025 3:06 PM EDT [facility] Blood Venipuncture / Unknown 04/04/2025 2:47 PM EDT 04/04/2025 2:52 PM EDT Mario Crowley LAB BLOOD ORDERABLES Fin al Result Performing Organization Address [facility] de Phone Number [facility]
[address] [place] [address], * (ABNORMAL) C-reactive Protein (04/04/2025 2:47 PM EDT) C-Reactive Protein 8.57(H) 0.00 - 0.50 mg/dL 04/04/2025 3:26 PM EDT [facility] Blood Venipuncture / Unknown 04/04/2025 2:47 PM EDT 04/04/2025 2:52 PM EDT Mario Crowley DO LAB BLOOD ORDERABLES Fin al Result Performing Organization Address [facility] Co de Phone Number [facility]
[address] [place] [address], from Last 3 Months Additional Health Concerns [...] Of Support Discussed With: Patient Care Teams Coagulator Relationship Specialty Start Date End Date Provider, No Known [facility] [place] [address] PCP - General 05/09/23
--- OUTSIDE RECORDS SUMMARY | 2025-05-01 09:25 | XMS_ITS | Patient Health Record ---
[facility] [address] [place] [id number] Care Team Providers Care Drafter Chief Design Name Role Phone Zeeshan Salazar Primary Care Provider [phone] Allergies No Known Allergies Medications Medication SIG [...] W/U Status Risk Notes Problem Essential hypertension (33255649) HTN [Hypertension] (401.9) Active confirmed appears resolved Problem Hypothyroidism (01526920) Hypothyroidism NOS (244.9) Active confirmed Problem Hyperlipidemia (74920573) Hyperlipidemia (272.4) Active confirmed Problem Constipation (79083974) Constipation, unspecified constipation type (K59.00) Active confirmed Problem History of pulmonary embolism on long-term anticoagulation therapy (36446190228486770 ) Hx pulmonary embolism (Z86.711) Active confirmed Problem Long-term current use of anticoagulant (664962520) 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 (Z79.01) Active confirmed Problem Adjustment disorder with anxious mood (50472848) Adjustment disorder with anxious mood (F43.22) Active confirmed Problem History of pulmonary embolus (845167949) History of pulmonary embolus (PE) (Z86.711) Active confirmed Problem Methicillin resistant Staphylococcus aureus infection (disorder) (562135307) Infection of wound due to methicillin resistant Staphylococcus aureus (MRSA) (A49.02) Active confirmed Problem Arthritis of knee (269256428) Arthritis of knee (M17.10) Active confirmed Problem Amputated below knee (434967402) 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
--- OUTSIDE RECORDS SUMMARY | 2025-05-01 09:25 | XMS_ITS | Encounter Summary ---
Author Organization Healthcare Address [address] [place] [address] Care Team Providers Care Esol Teacher Name Role Phone Unavailable Primary Care Provider Unavailabl e Encounter Details Date Type Department Care Team (Late st Contact Info) Description 10/01/2022 Lab Requisition [facility] [address] [place] [address] Sushil Dean MD [address] [facility]. [address] [place] [address] Encounter for general adult medical examination without [...] has been identified using the FDA Approved Optinuityyper CA System The organism value for this [...] Refer to culture [id number] FOR SUSCEPTIBILITIES ON NEELIMA ALBICANS us Sushil Dean MD LAB MICROBIOLOGY - GENERAL O RDERABLES Final Result [facility] [address] [place] [address] documented in this encounter Visit Diagnoses Diagnosis Encounter for general adult medical examination without abnormal findings documented in this encounter
[2025-05-01] MEDS: SODIUM CHLORIDE 0.9% 10ML FLUSH SYRINGE 10 ML IV (09:26)
--- OUTSIDE RECORDS SUMMARY | 2025-05-01 09:26 | XMS_ITS | Encounter Summary ---
Author Organization Healthcare Address [address] [place] [address] Care Team Providers Care Food Technician Name Role Phone Unavailable Primary Care Provider Unavailabl e Encounter Details Date Type Department Care Team (Late st Contact Info) Description 07/20/2022 Lab Requisition [facility] [address] [place] [address] Sushil Dean MD [address] [place] [address] Encounter for general adult medical examination without [...]
--- OUTSIDE RECORDS SUMMARY | 2025-05-01 09:26 | XMS_ITS | Encounter Summary ---
Author Organization Healthcare Address [address] [place] [address] Care Team Providers Care Certified Orthotist/Pedorthist Name Role Phone Unavailable Primary Care Provider Unavailabl e Encounter Details Date Type Department Care Team (Late st Contact Info) Description 05/17/2023 Lab Requisition [facility] [address] [place] [address] Sushil Dean MD [address] [facility] [address] [place] [address] Encounter for general adult medical examination without [...] O RDERABLES Final Result Performing Organization Address City/[facility] Co de Phone Number [facility] [address] [place] [address] * Bone Culture and Gram Stain (05/17/2023 [...] RDERABLES Final Result Performing Organization Address [facility] Co de Phone Number [facility] [address] [place] [address] documented in this encounter Visit Diagnoses Diagnosis Encounter for general adult medical examination without abnormal findings documented in this encounter
--- OUTSIDE RECORDS SUMMARY | 2025-05-01 09:26 | XMS_ITS | Encounter Summary ---
Author Organization Healthcare Address [address] [place] [address] Care Team Providers Care Postal Sorting Officer Name Role Phone Unavailable Primary Care Provider Unavailabl e Encounter Details Date Type Department Care Team (Late st Contact Info) Description 10/19/2022 Lab Requisition [facility] [address] [place] [address] Sushil Dean MD [address] [place] [address] Encounter for general adult medical examination without [...] by MALDI tof mass spectrometry using the [employer] database and is for research use only. The organism value for this result has been updated. These results have been appended to the previously preliminary verified report. Bone Specimen from bone / Unknown 10/19/2022 5:17 PM EDT 10/19/2022 9:49 PM EDT Sushil Dean MD LAB MICROBIOLOGY - GENERAL O RDERABLES Final Result Performing Organization Address [facility] de Phone Number [facility]ALTHCARE [facility] [address] [place] [phone] * Bone Culture and Gram Stain (10/19/2022 5:17 PM EDT) Culture No growth at day 4 2022 8:14 AM EDT [facility] Gram Stain Result Few Polymorphonuclear leukocytes 10/23/2022 8:14 AM EDT [facility] Gram Stain Result No organisms seen 10/23/2022 8:14 AM EDT [facility] Bone Specimen from bone / Unknown 10/19/2022 5:17 PM EDT 10/19/2022 9:49 PM EDT Sushil Dena MD LAB MICROBIOLOGY - GENERAL O RDERAADDI Final Result Performing Organization Address [facility] Phone Number [facility]ARE [facility] [address] [place] [phone] documented in this encounter Visit Diagnoses Diagnosis Encounter for general adult medical examination without abnormal findings documented in this encounter
--- OUTSIDE RECORDS SUMMARY | 2025-05-01 09:26 | XMS_ITS | Clinical Summary ---
Author Organization Healthcare Address [address] [place] [address] Care Team Providers Care Paper Cup Machine Operator Name Role Phone Unavailable Primary [...]
--- OUTSIDE RECORDS SUMMARY | 2025-05-01 09:26 | XMS_ITS | Encounter Summary ---
Author Organization [facility] Address [address] [place] [address] Care Team Providers Care Groundman/Lineman Name Role Phone Provider, No Known Primary [...] 2:25 PM EDT Cherri Grimm RN * [place] Suicide Severity Rating Scale (Screener/Recent Self-Report) Question [...] documented as of this encounter Care Teams Groundman/Lineman Relationship Specialty Start Date End Date Provider, No Known [facility] [address] PCP - General 05/09/23 documented as of this encounter
--- OUTSIDE RECORDS SUMMARY | 2025-05-01 09:26 | XMS_ITS | Encounter Summary ---
Author Organization Healthcare Address [address] [place] [address] Care Team Providers Care Appointment Scheduler Name Role Phone Unavailable Primary Care Provider Unavailabl e Encounter Details Date Type Department Care Team (Late st Contact Info) Description 07/20/2022 Lab Requisition [facility] [address] [place] [address] Sushil Dean MD [address] [place] [address] Encounter for general adult medical examination without [...] at day 4 07/27/2022 11:32 AM EST [facility] Bone Specimen from bone / Unknown 07/20/2022 1:36 PM EST 07/20/2022 5:52 PM EST us Sushil Dean MD LAB MICROBIOLOGY - GENERAL O RDERABLES Final Result Performing Organization Address [facility] Co de Phone Number HEALTHCARE LAB [address] [place] [address] * Bone Culture and Gram Stain (07/20/2022 1:36 PM EST) Culture No growth at day 4 2022 9:16 AM EST [facility] Gram Stain Result Rare Polymorphonuclear leukocytes 07/24/2022 9:16 AM EST [facility] Gram Stain Result No organisms seen 07/24/2022 9:16 AM EST [facility] Bone Specimen from bone / Unknown 07/20/2022 1:36 PM EST 07/20/2022 5:52 PM EST us Sushil Dean MD LAB MICROBIOLOGY - GENERAL O RDERABLES Final Result Performing Organization Address [facility] Co de Phone Number HEALTHCARE LAB [address] [place] [address] documented in this encounter Visit Diagnoses Diagnosis Encounter for general adult medical examination without abnormal findings documented in this encounter
--- OUTSIDE RECORDS SUMMARY | 2025-05-01 09:26 | XMS_ITS | Encounter Summary ---
Author Organization Healthcare Address [address] [place] [address] Care Team Providers Care Manager Developmental Name Role Phone Unavailable Primary Care Provider Unavailabl e Encounter Details Date Type Department Care Team (Late st Contact Info) Description 08/12/2022 Lab Requisition [facility] [address] [place] [address] Sushil eDan MD [address] [place] [address] Encounter for general adult medical examination without [...] has been identified using the FDA Approved [employer] [place] System The organism value for this [...] O ERIC Final Result Performing Organization Address [facility] de Phone Number HEALTHCARE LAB [address] [place] [address] * Bone Culture and Gram Stain (08/12/2022 [...] O RDERABLES Final Result Performing Organization Address City/[facility] de Phone Number [facility] [address] [place] [address] documented in this encounter Visit Diagnoses Diagnosis Encounter for general adult medical examination without abnormal findings documented in this encounter
[2025-05-01 10:08] VITALS: BP 109/79; PULSE 78; RESP 20; O2SAT 94
== END 2025-05-01 23:59 | disposition home or self-care (01) ==
LOC: INF 09:19
PROVIDERS: PCP Nurse Practitioner Family; Visit Provider Internal Medicine Infectious Disease
DX: M86.9 Osteomyelitis, unspecified (principal); B95.62 Methicillin resistant Staphylococcus aureus infection as the cause of diseases classified elsewhere
CPT/HCPCS: 96365; J0878

== ENCOUNTER 2025-05-02 08:07 | Outpatient (CLI) | payer MEDICARE, SELFPAY ==
--- OUTSIDE RECORDS SUMMARY | 2025-04-04 16:10 | XMS_ITS | Encounter Summary ---
Author Organization [facility] Address [address] [place] [address] Care Team Providers Care Ski Patrol Director Name Role Phone Provider, No Known Primary Care Provider Unavail able Reason for Visit * Reason Comments Leg Swelling * Auth/Cert Specialty Diagnoses / Procedures Referred By Contlevy t Referred To Contact Diagnoses Right BKA infection Referral ID Status Reason Start Date Expiration Date Visits Re quested Visits Authorized [id number] 1 1 Encounter Details Date Type Department Care Team (Late st Contact Info) Description 04/04/2025 4:10 PM EDT - 04/11/2025 1:58 PM EDT Hospital Encounter [address] [place] [address] Mario Crowley, [address] [place] [address] Leonora Shepherd MD [address] [address] Jason Álvarez DO [address] [address] Jadyn Richardson DO [address] [address] Cellulitis of right lower extremity (Primary Dx); Below-knee amputation of right lower extremity, initial encounter; Right BKA infection Discharge Disposition: Home or Self Care Social History Tobacco Use Types Packs/Day Years Used Date Smoking Tobacco: Never Smokeless Tobacco: Never Tobacco Cessation:Counseling Given: Not Answered Alcohol Use Standard Drinks/Week Comments Not Currently 0 (1 standard drink = 0.6 oz pur e alcohol) [facility] Utilities Answer Date Recorded In the past 12 months has th e [email or web address], gas, oil, or water company threatened to [...] or training? Not on file Preferred Language Bahamian 04/07/2025 Sex and Gender Information Value Date [...] 2:25 PM EDT Cherri Grimm RN * [place] Suicide Severity Rating Scale (Screener/Recent Self-Report) Question [...] from the original note were not included. [facility] Medicine Services DISCHARGE SUMMARY [...] Date/Time Wound Culture - Swab, Leg, Right [[id number]] (Abnormal) (Susceptibility) Collected: 04/07/252106 Lab Status: Final [...] Units Date/Time FL C Arm During Surgery [[id number]] Resulted: 04/07/252137 Updated: 04/07/252137 Narrative: This procedure was auto-finalized with no dictation required. MRI Tibia Fibula Right With & Without Contrast [[id number]] Collected: 04/07/25 0938 Updated: 04/07/25 1001 Narrative: [...] Buenrostro 04/07/2025 9:58 AM EDT Workstation ID: [id number] MRI Tibia Fibula Right With & Without Contrast [[id number]] Collected: 04/04/252256 Updated: 04/04/252302 Narrative: MRI TIBIA [...] represent a small area of phlegmonous change (ihirtw92 image 10) measuring approximately 1.6 cm which [...] MD 04/04/2025 11:00 PM EDT Workstation ID: [id number] Pending Labs Order Current Status Fungus Culture [...] FLOMAX 1 capsule, Nightly Stop These Medications [facility] capsule doxycycline 100 MG tablet Commonly [...] Male) Date of 1980 Social Security Number [id number] [place] [address] Synagogue Unknown Marital Status Unknown Admission Date 04/04/2025 Admission Type Emergency Admitting Provider Jadyn Richardson DO Attending Provider Jadyn Richardson DO Department, Room/Bed [address], S565/1 Discharge Date Discharge Disposition Discharge [...] Group [place] [id number] Payor Plan Address Payor Plan Phone Number Payor Plan Fax Number Effective Dates [employer] [address] [address] 08/10/2023 - None Entered [place] [address] Subscriber Name Subscriber Date Member ID WON DENNIS 1980 [id number] Emergency Contacts Softball Coach (Rel.) Home Phone Work Phone Mobile Phone Avril Dennis (Spouse) -- -- [phone] LewRobert (Relative) -- -- [phone] [facility] [address] Patient: ROOM: [facility] Won Dennis [address] [place] [address] : 1980 SSN: [id number] Sex: M PCP: Provider, No Known Emergency Contact Information Name Relation Home Work Mobile Avril Dennis Spouse [phone] Other Contacts Name Relation Home Work Mobile Robert Hackett Relative [phone] INSURANCE PAYOR [employer]AN [employer] # SUBSCRIBER ID Primary: Secondary: MEDICARE [employer] MEDICAID [place] [id number] Admitting Diagnosis: 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] Order Date: Apr 09, 2025 Case Management President And Chief Operating Officer Consult (Order ID: [id number]) Diagnosis: Priority: Routine Expected Date: Expiration Date: [...] INFECTIOUS DISEASE Progress Note Won Dennis 1980 [id number] Date of Consult: 04/10/2025 Admission Date: 04/04/2025 [...] which prompted him to seek treatment at [facility]. He is known to Dr. Dean. He [...] HDS, on Heparin gtt. Currently [facility] has been asked to manage the [...] Jr., MD, 20 mg at 04/09/25906 heparin 52174 units/250 mL (100 units/mL) in 0.45 % [...] Units Date/Time FL C Arm During Surgery [[id number]] Resulted: 04/07/252137 Updated: 04/07/252137 Narrative: This procedure was auto-finalized with no dictation required. MRI Tibia Fibula Right With & Without Contrast [[id number]] Collected: 04/07/25 0938 Updated: 04/07/25 1001 Narrative: [...] Chitra 04/07/2025 9:58 AM EDT Workstation ID: [id number] Impression: Recurrent Right BKA stump abscess/cellulitis- this [...] discussed his disposition with the pharmacist at [facility] today. I will sign off Outpatient orders: 1. Outpatient intravenous antibiotic therapy: Daptomycin 800 mg IV daily to be supplied by [facility] 2. Home health to perform weekly [...] Time: 04/10/251323 Signed Expand All Collapse All [facility] Medicine Services PROGRESS NOTE [...] Date/Time Wound Culture - Swab, Leg, Right [[id number]] (Abnormal) (Susceptibility) Collected: 04/07/252106 Lab Status: Final [...] Row Name 04/06/25 1143 Sit-Stand Transfer Sit-Stand Comal (Transfers) modified independence -LM Comment, (Sit-Stand Transfer) Pt stood from recliner. Not holding onto walker, pt able to pull his pants up while balancing on his one leg. -LM Row Name 04/06/25 1143 Gait/Stairs (Locomotion) Comal Level (Gait) modified independence -LM Distance in [...] = Cosigned By Initials Name Provider Type Susna Pugh PT Physical Therapist Goals/Plan No documentation. [...] Nurse Physical Therapy Education Title: PT OT BOAT LABORER Therapies (Done) Topic: Physical Therapy (Done) Point: [...] Description Service Date Service Provider Modifiers Qty [id number] PT EVAL LOW COMPLEXITY 3 04/06/2025 Susan [...] mg Daily 04/05/2025 -- Route: Oral heparin 41605 units/250 mL (100 units/mL) in 0.45 % [...] -- Admin Instructions: Open Order & Select [facility] Electrolyte Replacement Protocol Algorithm to [...] 22 [facility] [address], [address] [facility], [address] Please schedule at [phone] VONDA Garcia 04/11/25 08:32 EDT Cosigned by Sushil Dean Jr., MD at 04/19/2025 10:33 AM EDT Associated attestation - Sushil Dean Jr., MD - 04/19/2025 10:33 AM EDT I have reviewed this documentation and agree. * Rosario Hill APRN - 04/10/2025 1:24 PM EDT Images from the original note were not included. [facility] Medicine Services PROGRESS NOTE [...] Date/Time Wound Culture - Swab, Leg, Right [[id number]] (Abnormal) (Susceptibility) Collected: 04/07/252106 Lab Status: Final [...] mg Daily 04/05/2025 -- Route: Oral heparin 77382 units/250 mL (100 units/mL) in 0.45 % [...] -- Admin Instructions: Open Order & Select [facility] Electrolyte Replacement Protocol Algorithm to [...] -- Admin Instructions: Open Order & Select [facility] Electrolyte Replacement Protocol Algorithm to [...] -- Admin Instructions: Open Order & Select [facility] Electrolyte Replacement Protocol Algorithm to [...] 22 [facility] [address], [address] [facility], [address] Please schedule at [phone] VONDA Garcia 04/10/25 09:01 EDT Cosigned by Sushil Dean Jr., MD at 04/19/2025 10:33 AM EDT Associated attestation - Sushil Dean Jr., MD - 04/19/2025 10:33 AM EDT I have reviewed this documentation and agree. * Carlton Mead MD - 04/10/2025 7:38 AM EDT Images from the original note were not included. INFECTIOUS DISEASE Progress Note Won Dennis 1980 [id number] Date of Consult: 04/10/2025 Admission Date: 04/04/2025 [...] which prompted him to seek treatment at [facility]. He is known to Dr. Dean. He [...] HDS, on Heparin gtt. Currently [facility] has been asked to manage the [...] Jr., MD, 20 mg at 04/09/25906 heparin 48926 units/250 mL (100 units/mL) in 0.45 % [...] vancomycin 2750 mg/500 mL 0.9% NS IVPB ([facility]) Ordering Provider: Mario Crowley, DO 20 [...] Units Date/Time FL C Arm During Surgery [[id number]] Resulted: 04/07/252137 Updated: 04/07/252137 Narrative: This procedure was auto-finalized with no dictation required. MRI Tibia Fibula Right With & Without Contrast [[id number]] Collected: 04/07/25 0938 Updated: 04/07/25 1001 Narrative: [...] Buenrostro 04/07/2025 9:58 AM EDT Workstation ID: [id number] Impression: Recurrent Right BKA stump abscess/cellulitis- this [...] discussed his disposition with the pharmacist at [facility] today. I will sign off Outpatient orders: 1. Outpatient intravenous antibiotic therapy: Daptomycin 800 mg IV daily to be supplied by [facility] 2. Home health to perform weekly [...] 04/10/2025 07:38 EDT * Yaya Hamiltonn, [facility] - 04/10/2025 7:17 AM EDT Pharmacy [...] from the original note were not included. [facility] Medicine Services PROGRESS NOTE [...] Date/Time Wound Culture - Swab, Leg, Right [[id number]] (Abnormal) Collected: 04/07/252106 Lab Status: Preliminary result [...] DO Preeti 04/09/25 * Larisa Hamilton [facility] - 04/09/2025 11:36 AM EDT Pharmacy [...] mg Daily 04/05/2025 -- Route: Oral heparin 10021 units/250 mL (100 units/mL) in 0.45 % [...] -- Admin Instructions: Open Order & Select [facility] Electrolyte Replacement Protocol Algorithm to [...] -- Admin Instructions: Open Order & Select [facility] Electrolyte Replacement Protocol Algorithm to [...] -- Admin Instructions: Open Order & Select [facility] Electrolyte Replacement Protocol Algorithm to [...] radiographs [facility] [address], [address] [facility], [address] Please schedule at [phone] VONDA Garcia 04/09/25 09:18 EDT Cosigned by Sushil Dean Jr., MD at 04/19/2025 10:33 AM EDT Associated attestation - Sushil Dean Jr., MD - 04/19/2025 10:33 AM EDT I have reviewed this documentation and agree. * Carlton Mead MD - 04/09/2025 8:25 AM EDT Images from the original note were not included. INFECTIOUS DISEASE Progress Note Won Dennis 1980 [id number] Date of Consult: 04/09/2025 Admission Date: 04/04/2025 [...] which prompted him to seek treatment at [facility]. He is known to Dr. Dean. He [...] HDS, on Heparin gtt. Currently [facility] has been asked to manage the [...] Surgeon: Sushil Dean Jr., MD; Location: [facility]; Service: Orthopedics; Laterality: Right; PLACEMENT OF WOUND VAC Right 04/07/2025 Procedure: WOUND VACUUM ASSISTED CLOSURE; Surgeon: Sushil Dean Jr., MD; Location: [facility]; Service: Orthopedics; Laterality: Right; History [...] MD, 20 mg at 04/08/25 0800 heparin 36311 units/250 mL (100 units/mL) in 0.45 % [...] BPA Driven Protocol, , Not Applicable, PRN, Susihl Dean Jr., MD [COMPLETED] HYDROmorphone (DILAUDID) injection [...] Units Date/Time FL C Arm During Surgery [[id number]] Resulted: 04/07/252137 Updated: 04/07/252137 Narrative: This procedure was auto-finalized with no dictation required. MRI Tibia Fibula Right With & Without Contrast [[id number]] Collected: 04/07/2538 Updated: 04/07/25 1001 Narrative: MRI [...] Buenrostro 04/07/2025 9:58 AM EDT Workstation ID: [id number] Impression: Recurrent Right BKA stump abscess/cellulitis- this [...] from the original note were not included. [facility] Medicine Services PROGRESS NOTE [...] Buenrostro 04/07/2025 9:58 AM EDT Workstation ID: [id number] I have personally reviewed the therapy plans: [...] Álvarez DO 04/08/25 * Larisa Hamilton [facility] - 04/08/2025 11:48 AM EDT Pharmacy [...] -- Admin Instructions: Open Order & Select [facility] Electrolyte Replacement Protocol Algorithm to [...] mg Daily 04/05/2025 -- Route: Oral heparin 12191 units/250 mL (100 units/mL) in 0.45 % [...] -- Admin Instructions: Open Order & Select [facility] Electrolyte Replacement Protocol Algorithm to [...] -- Admin Instructions: Open Order & Select [facility] Electrolyte Replacement Protocol Algorithm to [...] -- Admin Instructions: Open Order & Select [facility] Electrolyte Replacement Protocol Algorithm to [...] INFECTIOUS DISEASE Progress Note Won Dennis 1980 [id number] Date of Consult: 04/08/2025 Admission Date: 04/04/2025 [...] which prompted him to seek treatment at [facility]. He is known to Dr. Dean. He [...] HDS, on Heparin gtt. Currently [facility] has been asked to manage the [...] Surgeon: Sushil Dean Jr., MD; Location: [facility]; Service: Orthopedics; Laterality: Right; PLACEMENT OF WOUND VAC Right 04/07/2025 Procedure: WOUND VACUUM ASSISTED CLOSURE; Surgeon: Sushil Dean Jr., MD; Location: [facility]; Service: Orthopedics; Laterality: Right; History [...] 325 mg, 325 mg, Rectal, Q6H PRN, Sushli Dean Jr., MD [Held by provider] apixaban [...] Jr., MD, 20 mg at 04/07/25950 heparin 42757 units/250 mL (100 units/mL) in 0.45 % NaCl infusion, 18 Units/kg/hr, Intravenous, Titrated, Sushil Daen Jr., MD, Last Rate: 24.1 mL/hr at [...] % 50 mL IVPB Ordering Provider: Carlton eMad MD 8 mg/kg ?? 98.8 kg (Adjusted) [...] Units Date/Time FL C Arm During Surgery [[id number]] Resulted: 04/07/252137 Updated: 04/07/252137 Narrative: This procedure was auto-finalized with no dictation required. MRI Tibia Fibula Right With & Without Contrast [[id number]] Collected: 04/07/2538 Updated: 04/07/25 1001 Narrative: MRI [...] Buenrostro 04/07/2025 9:58 AM EDT Workstation ID: [id number] Impression: 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 (Treated by ID in [place] Dr. Harris). Dr. Torres treated him with [...] from the original note were not included. [facility] Medicine Services PROGRESS NOTE [...] Buenrostro 04/07/2025 9:58 AM EDT Workstation ID: [id number] I have personally reviewed the therapy plans: [...] Álvarez DO 04/07/25 * Larisa Hamilton [facility] - 04/07/2025 11:56 AM EDT Pharmacy [...] INFECTIOUS DISEASE Progress Note Won Dennis 1980 [id number] Date of Consult: 04/07/2025 Admission Date: 04/04/2025 [...] which prompted him to seek treatment at [facility]. He is known to Dr. Dean. He [...] HDS, on Heparin gtt. Currently [facility] has been asked to manage the [...] Application, 1 Application, Topical, Q12H, Ayah Valentin, SOFT WATER MECHANIC, 1 Application at 04/06/252101 DAPTOmycin (CUBICIN) [...] Shepherd MD, 20 mg at 04/06/25899 heparin 86096 units/250 mL (100 units/mL) in 0.45 % NaCl infusion, 18 Units/kg/hr, Intravenous, Titrated, Cherri Beatty, [facility], Last Rate: 24.1 mL/hr at 04/07/258, [...] With & Without Contrast - In process [[id number]] Resulted: 04/07/25828 Updated: 04/07/25828 This result has not been signed. Information might be incomplete. 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 (Treated by ID in [place] Dr. Harris). Dr. Torres treated him with [...] mg Daily 04/05/2025 -- Route: Oral heparin 69299 units/250 mL (100 units/mL) in 0.45 % [...] -- Admin Instructions: Open Order & Select [facility] Electrolyte Replacement Protocol Algorithm to [...] -- Admin Instructions: Open Order & Select [facility] Electrolyte Replacement Protocol Algorithm to [...] 04/07/25 06:07 EDT * Cherri Beatty [facility] - 04/06/2025 1:47 PM EDT Pharmacy to Dose Heparin Infusion Note Wno Dennis is a 44 y.o. male receiving [...] from the original note were not included. [facility] Medicine Services PROGRESS NOTE [...] MD 04/04/2025 11:00 PM EDT Workstation ID: [id number] I have personally reviewed the therapy plans: [...] mg Daily 04/05/2025 -- Route: Oral heparin 97980 units/250 mL (100 units/mL) in 0.45 % [...] -- Admin Instructions: Open Order & Select [facility] Electrolyte Replacement Protocol Algorithm to [...] INFECTIOUS DISEASE follow up. Won Dennis 1980 [id number] Date of Consult: 04/06/2025 Admission Date: 04/04/2025 [...] which prompted him to seek treatment at [facility]. He is known to Dr. Dean. He [...] HDS, on Heparin gtt. Currently [facility] has been asked to manage the [...] Application, 1 Application, Topical, Q12H, Ayah Valentin, SOFT WATER MECHANIC, 1 Application at 04/06/25 0859 DAPTOmycin [...] MD, 20 mg at 04/06/25 0900 heparin 28626 units/250 mL (100 units/mL) in 0.45 % NaCl infusion, 18 Units/kg/hr, Intravenous, Titrated, Cherri Beatty [facility], Last Rate: 24.1 mL/hr at 04/06/25 [...] Tibia Fibula Right With & Without Contrast [[id number]] Collected: 04/04/252256 Updated: 04/04/252302 Narrative: MRI TIBIA [...] represent a small area of phlegmonous change ([id number] image 10) measuring approximately 1.6 cm which [...] MD 04/04/2025 11:00 PM EDT Workstation ID: [id number] Impression: 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 (Treated by ID in [place] Dr. Harris). Dr. Torres treated him with [...] 04/06/2025 16:00 EDT * Cherri Beatty, [facility] - 04/05/2025 3:01 PM EDT Pharmacy [...] from the original note were not included. [facility] Medicine Services PROGRESS NOTE [...] MD 04/04/2025 11:00 PM EDT Workstation ID: [id number] I have personally reviewed the therapy plans: [...] from the original note were not included. [facility] Medicine Services HISTORY AND [...] MD 04/04/2025 11:00 PM EDT Workstation ID: [id number] Assessment & Plan Assessment & Plan Won [...] ORTHOPEDIC SURGERY [facility], [facility] [address] [address] Orthopedic Consult Patient: Won Dennis Date of Admission: 04/04/2025 4:10 PM Date of : 1980 Attending Physician: Jason Álvarez DO Consulting Physician: Sushil Dean Jr, MD Chief Complaint: 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 male admitted to [facility] [place] with 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]. He has [...] was evaluated in the emergency department in [place], was discharged with instructions for follow-up. He [...] tablet by mouth Daily. 04/03/2025 Morning Lactobacillus-Inulin ([facility] Cliqset) capsule Take 200 mg by mouth Daily. [...] MD 04/04/2025 11:00 PM EDT Workstation ID: [id number] Assessment: Right BKA infection 44-year-old male with [...] DISEASE CONSULT/INITIAL HOSPITAL VISIT Won Dennis 1980 [id number] Date of Consult: 04/05/2025 Admission Date: 04/04/2025 [...] which prompted him to seek treatment at [facility]. He is known to Dr. Dean. He [...] HDS, on Heparin gtt. Currently [facility] has been asked to manage the [...] Leonora Shepherd MD, 40 mg at 04/04/25 8379 sennosides-docusate (PERICOLACE) 8.6-50 MG per tablet 2 [...] MD, 20 mg at 04/05/25 0916 heparin 04828 units/250 mL (100 units/mL) in 0.45 % [...] Tibia Fibula Right With & Without Contrast [[id number]] Collected: 04/04/252256 Updated: 04/04/252302 Narrative: MRI TIBIA [...] represent a small area of phlegmonous change (cyoyqp01 image 10) measuring approximately 1.6 cm which [...] MD 04/04/2025 11:00 PM EDT Workstation ID: [id number] Impression: 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 (Treated by ID in [place] Dr. Harris). Dr. Torres treated him with [...] Jr., MD - 04/08/2025 3:51 PM EDT [facility] OPERATIVE REPORT PATIENT NAME: Won Dennis DATE OF : 1980 PREOP DIAGNOSIS: Right Right below-knee amputation infection POSTOP DIAGNOSIS: Same. PROCEDURE: Right Right 12198: Secondary closure below-knee amputation SURGEON: Sushil Dean MD OPERATIVE TEAM: Guest Services: Susi Grullon RN Scrub Person: Mary Paredes Scrub Person Extra: Hortencia Toribio Other: Katt Gotti RN; Charis Neville RN ANESTHETIST: Anesthesiologist: Ulises Hoffman MD ELECTROMECHANICAL TECHNOLOGIST: Stan Casillas CRNA Student Nurse Pasteurizer: Karol Albert SRNA ANESTHESIA: Choice ESTIMATED BLOOD [...] CULTURE (Canceled) Sushil Dean Jr., MD 04/08/25 3803 Description: RIGHT LEG DEEP WOUND FOR CULTURE [...] [facility] [address] [address] OPERATIVE REPORT PATIENT NAME: Won Dennis DATE OF : 1980 PREOP DIAGNOSIS: Right Right below knee amputation stump infection POSTOP DIAGNOSIS: Same. PROCEDURE: Right Right 08415: Incision and drainage of surgical site infection 64541: Debridement of skin, subcutaneous tissue, muscle 19546: Wound vacuum-assisted closure SURGEON: Sushil Dean MD OPERATIVE TEAM: Guest Services: Anum Sanchez RN Scrub Person: Hortencia Toribio; Gerald Ivey AUTOGRAPHER: Anesthesiologist: Luci Alonso DO ANESTHESIA: General ESTIMATED [...] ago swellling of the area. seen at [facility] yesterday for CT and US, here for [...] this chart in the absence of a awning erector. No orders to display RADIOLOGY: [x] Radiologist's [...] been produced using speech recognition software. Mario rCowley DO Attending Emergency Physician Mario Crowley DO 04/04/251945 documented in this encounter Miscellaneous Notes * Case Management/Social Work - Omar Zavala RN - 04/11/2025 1:30 PM EDT Continued Stay Note [facility] Patient Name: Won Dennis Today's Date: 04/11/2025 Admit Date: 04/04/2025 Plan: Home with outpatient infusion. Discharge Plan Row Name 04/11/25 1155 Plan Plan Home with outpatient infusion. Final Discharge Disposition Code 01 - home or self-care Final Note Patient discharging today. He is discharging home with outpatient infusion at [facility]. He has an appointment with [facility] at 8:00 am tomorrow. They will do PICC line dressing changes. DEBRA has spoke with Dena at [facility] today multiple times to get [...] with KELLEE and given themhis Medicare number [id number], she sent it to Admission. DEBRA spoke with Kerri, with [facility], and explained that he had Medicare A and B. However, it will not cover home infusion. It will be $64.00 a day out of packet. Patients can go to the Infusion center at [facility], and it will cover the cost as an outpatient. He will need to go there every day for infusion. They will be able to do the patients' PICC line dressing changes and lab work. CM called Dena [facility] Outpatient infusion center they can accept patient and start him. He is known for their facility. The Facility will need to run it through his insurance first. CM faxed the orders over to [facility] at [phone]. CM will follow up with them tomorrow at [facility] to make sure they received [...] with patient at bedside today. [facility] Patient getting PICC line [...] note were not included. Discharge Planning Assessment [place] Patient Name: Won Dennis Today's Date: 04/07/2025 [...] family Patient/Family Anticipated Services at Transition case assistantnurse practitioner manager Anticipated family or friend will provide [...] for home. CM will order wheelchair through [employer]. He is not current with home health services. PCP is Dr. Jordan. Insurance is [facility] Medicaid [place]. Patient discharge plan is home with priavte transport. CM will follow for any discharge needs. Final Discharge Disposition Code 01 - home or self-care Continued Care and Services - Admitted Since 04/04/2025 No active coordination exists. Demographic Summary Row Name 04/07/25 1143 General Information Arrived From hospital Preferred Language Bahamian Functional Status Row Name 04/07/25 1143 Functional [...] 3:4 0 PM EDT Right BKA infection [place] SEC ABDOMINAL WALL SUTURE EVISCERATION/DEHSN 04/08/2025 3:20 [...] CBC Auto Differential (04/11/2025 3:40 AM EDT) [facility] WBC 7.87 3.40 - 10.80 10*3/mm3 04/11/2025 4:02 AM EDT [facility] RBC 4.70 4.14 - 5.80 10*6/mm3 04/11/2025 4:02 AM EDT [facility] Hemoglobin 12.8(L) 13.0 - 17.7 g/dL 04/11/2025 4:02 AM EDT [facility] Hematocrit 40.5 37.5 - 51.0 % 04/11/2025 4:02 AM EDT [facility] MCV 86.2 79.0 - 97.0 fL 04/11/2025 4:02 AM EDT [facility] MCH 27.2 26.6 - 33.0 pg 04/11/2025 4:02 AM EDT [facility] MCHC 31.6 31.5 - 35.7 g/dL 04/11/2025 4:02 AM EDT [facility] RDW 12.9 12.3 - 15.4 % 04/11/2025 4:02 AM EDT [facility] RDW-SD 40.5 37.0 - 54.0 fl 04/11/2025 4:02 AM EDT [facility] MPV 9.2 6.0 - 12.0 fL 04/11/2025 4:02 AM EDT [facility] Platelets 267 140 - 450 10*3/mm3 04/11/2025 4:02 AM [facility] Neutrophil % 59.5 42.7 - 76.0 % 04/11/2025 4:02 AM [facility] Lymphocyte % 26.3 19.6 - 45.3 % 04/11/2025 4:02 AM [facility] Monocyte % 9.3 5.0 - 12.0 % 04/11/2025 4:02 AM [facility] Eosinophil % 4.1 0.3 - 6.2 % 04/11/2025 4:02 AM [facility] Basophil % 0.4 0.0 - 1.5 % 04/11/2025 4:02 AM [facility] Immature Grans % 0.4 0.0 - 0.5 % 04/11/2025 4:02 AM [facility] Neutrophils, Absolute 4.69 1.70 - 7.00 10*3/mm3 04/11/2025 4:02 AM [facility] Lymphocytes, Absolute 2.07 0.70 - 3.10 10*3/mm3 04/11/2025 4:02 AM [facility] Monocytes, Absolute 0.73 0.10 - 0.90 10*3/mm3 04/11/2025 4:02 AM [facility] Eosinophils, Absolute 0.32 0.00 - 0.40 10*3/mm3 04/11/2025 4:02 AM [facility] Basophils, Absolute 0.03 0.00 - 0.20 10*3/mm3 04/11/2025 4:02 AM [facility] Immature Grans, Absolute 0.03 0.00 - 0.05 10*3/mm3 04/11/2025 4:02 AM [facility] nRBC 0.0 0.0 - 0.2 /100 WBC 04/11/2025 4:02 AM [facility] Blood Venipuncture / Unknown 04/11/2025 3:40 AM EDT 04/11/2025 3:59 AM EDT us Sushil Dean Jr., MD LAB BLOOD ORDERABLES Fi nal Result [facility]
[address] [place] [address], * (ABNORMAL) Comprehensive Metabolic Panel (04/11/2025 3:40 AM EDT) Glucose 108(H) 65 - 99 mg/dL 04/11/2025 4:19 AM EDT [facility] BUN 12.5 6.0 - 20.0 mg/dL 04/11/2025 4:19 AM EDT [facility] Creatinine 0.68(L) 0.76 - 1.27 mg/dL 04/11/2025 4:19 AM EDT [facility] Sodium 140 136 - 145 mmol/L 04/11/2025 4:19 AM EDT [facility] Potassium 3.8 3.5 - 5.2 mmol/L 04/11/2025 4:19 AM EDT [facility] Chloride 105 98 - 107 mmol/L 04/11/2025 4:19 AM EDT [facility] CO2 28.2 22.0 - 29.0 mmol/L 04/11/2025 4:19 AM EDT [facility] Calcium 8.2(L) 8.6 - 10.5 mg/dL 04/11/2025 4:19 AM EDT [facility] Total Protein 6.1 6.0 - 8.5 g/dL 04/11/2025 4:19 AM EDT [facility] Albumin 3.1(L) 3.5 - 5.2 g/dL 04/11/2025 4:19 AM EDT [facility] ALT (SGPT) 52(H) 1 - 41 U/L 04/11/2025 4:19 AM EDT [facility] AST (SGOT) 40 1 - 40 U/L 04/11/2025 4:19 AM EDT [facility] Alkaline Phosphatase 99 39 - 117 U/L 04/11/2025 4:19 AM EDT [facility] Total Bilirubin 0.2 0.0 - 1.2 mg/dL 04/11/2025 4:19 AM EDT [facility] Globulin 3.0 gm/dL 04/11/2025 4:19 AM EDT [facility] Comment:Calculated Result A/G Ratio 1.0 g/dL 04/11/2025 4:19 AM EDT [facility] BUN/Creatinine Ratio 18.4 7.0 - 25.0 04/11/2025 4:19 AM EDT [facility] Anion Gap 6.8 5.0 - 15.0 mmol/L 04/11/2025 4:19 AM EDT [facility] eGFR 117.5 >60.0 mL/min/1.7 3 04/11/2025 4:19 AM EDT [facility] Blood Venipuncture / Unknown 04/11/2025 3:40 AM EDT 04/11/2025 3:56 AM EDT [facility] - 04/11/2025 4:19 AM EDT GFR [...] Hill APRN LAB BLOOD ORDERABLES Final Result [facility]
[address] [place] [address], * (ABNORMAL) CBC Auto Differential (04/10/2025 3:46 AM EDT) [facility] WBC 9.60 3.40 - 10.80 10*3/mm3 04/10/2025 3:56 AM EDT [facility] RBC 4.67 4.14 - 5.80 10*6/mm3 04/10/2025 3[facility] Hemoglobin 12.9(L) 13.0 - 17.7 g/dL 04/10/2025 3:56 AM EDT [facility] Hematocrit 40.1 37.5 - 51.0 % 04/10/2025 3:56 [facility] MCV 85.9 79.0 - 97.0 fL 04/10/2025 3:56 [facility] MCH 27.6 26.6 - 33.0 pg 04/10/2025 3:56 AM [facility] MCHC 32.2 31.5 - 35.7 g/dL 04/10/2025 3:56 [facility] RDW 12.9 12.3 - 15.4 % 04/10/2025 3:56 AM [facility] RDW-SD 40.5 37.0 - 54.0 fl 04/10/2025 3:56 AM [facility] MPV 9.5 6.0 - 12.0 fL 04/10/2025 3:56 AM [facility] Platelets 227 140 - 450 10*3/mm3 04/10/2025 3:56 AM EDT [facility] Neutrophil % 59.1 42.7 - 76.0 % 04/10/2025 3:56 AM [facility] Lymphocyte % 29.0 19.6 - 45.3 % 04/10/2025 3:56 AM [facility] Monocyte % 8.1 5.0 - 12.0 % 04/10/2025 3:56 AM [facility] Eosinophil % 3.2 0.3 - 6.2 % 04/10/2025 3:56 AM EDT [facility] Basophil % 0.4 0.0 - 1.5 % 04/10/2025 3:56 AM EDT [facility] Immature Grans % 0.2 0.0 - 0.5 % 04/10/2025 3:56 AM EDT [facility] Neutrophils, Absolute 5.67 1.70 - 7.00 10*3/mm3 04/10/2025 3:56 AM EDT [facility] Lymphocytes, Absolute 2.78 0.70 - 3.10 10*3/mm3 04/10/2025 3:56 AM EDT [facility] Monocytes, Absolute 0.78 0.10 - 0.90 10*3/mm3 04/10/2025 3:56 AM EDT [facility] Eosinophils, Absolute 0.31 0.00 - 0.40 10*3/mm3 04/10/2025 3:56 AM EDT [facility] Basophils, Absolute 0.04 0.00 - 0.20 10*3/mm3 04/10/2025 3:56 AM EDT [facility] Immature Grans, Absolute 0.02 0.00 - 0.05 10*3/mm3 04/10/2025 3:56 AM EDT [facility] nRBC 0.0 0.0 - 0.2 /100 WBC 04/10/2025 3:56 AM EDT [facility] Blood Venipuncture / Unknown 04/10/2025 3:46 AM EDT 04/10/2025 3:53 AM EDT Jason Álvarez DO LAB BLOOD ORDERABLES Final Resul t [facility]
[address] [place] [address], * (ABNORMAL) Basic Metabolic Panel (04/10/2025 3:46 AM EDT) [facility] Glucose 125(H) 65 - 99 mg/dL 04/10/2025 4:20 AM EDT [facility] BUN 15.9 6.0 - 20.0 mg/dL 04/10/2025 4:20 AM T [facility] Creatinine 0.77 0.76 - 1.27 mg/dL 04/10/2025 4:20 AM T [facility] Sodium 137 136 - 145 mmol/L 04/10/2025 4:20 AM [facility] Potassium 3.9 3.5 - 5.2 mmol/L 04/10/2025 4:20 AM EDT [facility] Chloride 102 98 - 107 mmol/L 04/10/2025 4:20 AM EDT [facility] CO2 26.9 22.0 - 29.0 mmol/L 04/10/2025 4:20 AM [facility] Calcium 7.9(L) 8.6 - 10.5 mg/dL 04/10/2025 4:20 AM [facility] BUN/Creatinine Ratio 20.6 7.0 - 25.0 04/10/2025 4:20 AM [facility] Anion Gap 8.1 5.0 - 15.0 mmol/L 04/10/2025 4:20 AM [facility] eGFR 113.2 >60.0 mL/min/1.7 3 04/10/2025 4:20 AM [facility] Blood Venipuncture / Unknown 04/10/2025 3:46 AM EDT 04/10/2025 3:52 AM EDT [facility] - 04/10/2025 4:20 AM EDT GFR [...] DO LAB BLOOD ORDERABLES Final Resul t [facility]
[address] [place] [address], * Heparin Anti-Xa (04/10/2025 3:46 AM EDT) Heparin Anti-Xa (UFH) 0.35 0.30 - 0.70 IU/ml 04/10/2025 4:23 AM EDT [facility] Blood Venipuncture / Unknown 04/10/2025 3:46 AM EDT 04/10/2025 3:53 AM EDT [facility] LAB BLOOD ORDERABLES Final R esult Performing Organization Address City/[facility]/ZIP Co de Phone Number [facility]
[address] [place] [address], * Heparin Anti-Xa (04/09/2025 10:05 AM EDT) Heparin Anti-Xa (UFH) 0.36 0.30 - 0.70 IU/ml 04/09/2025 11:12 AM EDT [facility] Blood Venipuncture / Unknown 04/09/2025 10:05 AM EDT 04/09/2025 10:47 AM EDT [facility] LAB BLOOD ORDERABLES Final R esult [facility]
[address] [place] [address], * (ABNORMAL) CBC Auto Differential (04/09/2025 4:18 AM EDT) WBC 11.00(H) 3.40 - 10.80 10*3/mm3 04/09/2025 4:50 AM [facility] RBC 4.70 4.14 - 5.80 10*6/mm3 04/09/2025 4:50 AM EDT [facility] Hemoglobin 13.0 13.0 - 17.7 g/dL 04/09/2025 4:50 AM EDT [facility] Hematocrit 40.4 37.5 - 51.0 % 04/09/2025 4:50 AM EDT [facility] MCV 86.0 79.0 - 97.0 fL 04/09/2025 4:50 AM EDT [facility] MCH 27.7 26.6 - 33.0 pg 04/09/2025 4:50 AM [facility] MCHC 32.2 31.5 - 35.7 g/dL 04/09/2025 4:50 AM [facility] RDW 12.8 12.3 - 15.4 % 04/09/2025 4:50 AM [facility] RDW-SD 39.9 37.0 - 54.0 fl 04/09/2025 4:50 AM [facility] MPV 10.0 6.0 - 12.0 fL 04/09/2025 4:50 AM [facility] Platelets 211 140 - 450 10*3/mm3 04/09/2025 4:50 AM [facility] Neutrophil % 74.8 42.7 - 76.0 % 04/09/2025 4:50 AM EDT [facility] Lymphocyte % 15.4(L) 19.6 - 45.3 % 04/09/2025 4:50 AM EDT [facility] Monocyte % 8.5 5.0 - 12.0 % 04/09/2025 4:50 AM EDT [facility] Eosinophil % 0.6 0.3 - 6.2 % 04/09/2025 4:50 AM [facility] Basophil % 0.4 0.0 - 1.5 % 04/09/2025 4:50 AM EDT [facility] Immature Grans % 0.3 0.0 - 0.5 % 04/09/2025 4:50 AM EDT [facility] Neutrophils, Absolute 8.23(H) 1.70 - 7.00 10*3/mm3 04/09/2025 4:50 AM EDT [facility] Lymphocytes, Absolute 1.69 0.70 - 3.10 10*3/mm3 04/09/2025 4:50 AM EDT [facility] Monocytes, Absolute 0.94(H) 0.10 - 0.90 10*3/mm3 04/09/2025 4:50 AM EDT [facility] Eosinophils, Absolute 0.07 0.00 - 0.40 10*3/mm3 04/09/2025 4:50 AM EDT [facility] Basophils, Absolute 0.04 0.00 - 0.20 10*3/mm3 04/09/2025 4:50 AM EDT [facility] Immature Grans, Absolute 0.03 0.00 - 0.05 10*3/mm3 04/09/2025 4:50 AM EDT [facility] nRBC 0.0 0.0 - 0.2 /100 WBC 04/09/2025 4:50 AM EDT [facility] Blood Venipuncture / Unknown 04/09/2025 4:18 AM EDT 04/09/2025 4:31 AM EDT Sushil Dean Jr., MD LAB BLOOD ORDERABLES Fi nal Result [facility]
[address] [place] [address], * Heparin Anti-Xa (04/09/2025 4:18 AM EDT) Heparin Anti-Xa (UFH) 0.41 0.30 - 0.70 IU/ml 04/09/2025 4:53 AM EDT [facility] Blood Venipuncture / Unknown 04/09/2025 4:18 AM EDT 04/09/2025 4:31 AM EDT Una Wheeleroy PharmD LAB BLOOD ORDERABLES Final R esult [facility]
[address] [place] [address], * (ABNORMAL) Basic Metabolic Panel (04/09/2025 4:18 AM EDT) Pathologist [facility] Glucose 147(H) 65 - 99 mg/dL 04/09/2025 5:33 AM EDT [facility] BUN 23.0(H) 6.0 - 20.0 mg/dL 04/09/2025 5:33 AM EDT [facility] Creatinine 1.15 0.76 - 1.27 mg/dL 04/09/2025 5:33 AM EDT [facility] Sodium 135(L) 136 - 145 mmol/L 04/09/2025 5:33 AM EDT [facility] Potassium 4.2 3.5 - 5.2 mmol/L 04/09/2025 5:33 AM EDT [facility] Chloride 100 98 - 107 mmol/L 04/09/2025 5:33 AM EDT [facility] CO2 26.0 22.0 - 29.0 mmol/L 04/09/2025 5:33 AM EDT [facility] Calcium 8.2(L) 8.6 - 10.5 mg/dL 04/09/2025 5:33 AM EDT [facility] BUN/Creatinine Ratio 20.0 7.0 - 25.0 04/09/2025 5:33 AM EDT [facility] Anion Gap 9.0 5.0 - 15.0 mmol/L 04/09/2025 5:33 AM EDT [facility] eGFR 80.5 >60.0 mL/min/1.7 3 04/09/2025 5:33 AM EDT [facility] Blood Venipuncture / Unknown 04/09/2025 4:18 AM EDT 04/09/2025 4:29 AM EDT Narrative [facility] - 04/09/2025 5:33 AM EDT [...] Address [facility] Co de Phone Number [facility]
[address] [place] [address], * Wound Culture - Swab, Leg, Right (04/08/2025 3:40 PM EDT) Wound Culture No growth at 3 days ALIZA 04/11/2025 10:40 AM EDT [facility] Gram Stain Few (2+) WBCs seen 04/11/2025 10:40 AM EDT [facility] Gram Stain No organisms seen 04/11/2025 10:40 AM EDT [facility] Swab Structure of right lower limb / Unknown 04/08/2025 3:40 PM EDT 04/08/2025 8:05 PM EDT Sushil Dean Jr., MD MICROBIOLOGY - GENERAL ORDERABLES Final Result Performing Organization Address City/[facility]/ZIP Co de Phone Number [facility]
[address] [place] [phone], [facility]
[address] [place] [address], * Anaerobic Culture - Swab, Leg, Right (04/08/2025 3:40 PM EDT) Pathologist [facility] Anaerobic Culture No anaerobes isolated at 5 days ALIZA 04/13/2025 7:24 AM EDT [facility] Swab Structure of right lower limb / Unknown 04/08/2025 3:40 PM EDT 04/08/2025 8:05 PM EDT Sushil Dean Jr., MD MICROBIOLOGY - GENERAL ORDERABLES Final Result Performing Organization Address City/[facility] Co de Phone Number [facility]
[address] [place] [address], [place] [phone] * Scan Slide (04/08/2025 8:41 AM EDT) Pathologist [facility] RBC Morphology Normal Normal 04/08/2025 11:02 AM EDT [facility] WBC Morphology Normal Normal 04/08/2025 11:02 AM EDT [facility] Platelet Estimate Adequate Normal 04/08/2025 11:02 AM EDT [facility] Clumped Platelets Present None Seen 04/08/2025 11:02 AM EDT [facility] Blood Venipuncture / Unknown 04/08/2025 8:41 AM EDT 04/08/2025 9:10 AM EDT Una LundbergD LAB BLOOD ORDERABLES Final R esult Performing Organization Address City/[facility]/ZIP Co de Phone Number [facility]
[address] [place] [address], [place] [phone] * (ABNORMAL) CBC Auto Differential (04/08/2025 8:41 AM EDT) Pathologist [facility] WBC 10.07 3.40 - 10.80 10*3/mm3 04/08/2025 11:02 AM EDT [facility] RBC 5.01 4.14 - 5.80 10*6/mm3 04/08/2025 11:02 AM EDT [facility] Hemoglobin 14.0 13.0 - 17.7 g/dL 04/08/2025 11:02 AM [facility] Hematocrit 42.7 37.5 - 51.0 % 04/08/2025 11:02 AM [facility] MCV 85.2 79.0 - 97.0 fL 04/08/2025 11:02 AM [facility] MCH 27.9 26.6 - 33.0 pg 04/08/2025 11:02 AM [facility] MCHC 32.8 31.5 - 35.7 g/dL 04/08/2025 11:02 AM [facility] RDW 12.6 12.3 - 15.4 % 04/08/2025 11:02 AM [facility] RDW-SD 38.9 37.0 - 54.0 fl 04/08/2025 11:02 AM [facility] MPV 11.0 6.0 - 12.0 fL 04/08/2025 11:02 AM [facility] Platelets 118(L) 140 - 450 10*3/mm3 04/08/2025 11:02 AM [facility] Neutrophil % 85.1(H) 42.7 - 76.0 % 04/08/2025 11:02 AM [facility] Lymphocyte % 9.3(L) 19.6 - 45.3 % 04/08/2025 11:02 AM [facility] Monocyte % 4.6(L) 5.0 - 12.0 % 04/08/2025 11:02 AM [facility] Eosinophil % 0.3 0.3 - 6.2 % 04/08/2025 11:02 AM [facility] Basophil % 0.2 0.0 - 1.5 % 04/08/2025 11:02 AM [facility] Immature Grans % 0.5 0.0 - 0.5 % 04/08/2025 11:02 AM [facility] Neutrophils, Absolute 8.57(H) 1.70 - 7.00 10*3/mm3 04/08/2025 11:02 AM EDT [facility] Lymphocytes, Absolute 0.94 0.70 - 3.10 10*3/mm3 04/08/2025 11:02 AM EDT [facility] Monocytes, Absolute 0.46 0.10 - 0.90 10*3/mm3 04/08/2025 11:02 AM EDT [facility] Eosinophils, Absolute 0.03 0.00 - 0.40 10*3/mm3 04/08/2025 11:02 AM EDT [facility] Basophils, Absolute 0.02 0.00 - 0.20 10*3/mm3 04/08/2025 11:02 AM EDT [facility] Immature Grans, Absolute 0.05 0.00 - 0.05 10*3/mm3 04/08/2025 11:02 AM EDT [facility] nRBC 0.0 0.0 - 0.2 /100 WBC 04/08/2025 11:02 AM EDT [facility] Blood Venipuncture / Unknown 04/08/2025 8:41 AM EDT 04/08/2025 9:10 AM EDT Una Perla PharmD LAB BLOOD ORDERABLES Final R esult [facility]
[address] [place] [address], * (ABNORMAL) Basic Metabolic Panel (04/08/2025 8:41 AM EDT) Glucose 125(H) 65 - 99 mg/dL 04/08/2025 9:51 AM EDT [facility] BUN 13.2 6.0 - 20.0 mg/dL 04/08/2025 9:51 AM EDT [facility] Creatinine 0.69(L) 0.76 - 1.27 mg/dL 04/08/2025 9:51 AM EDT [facility] Sodium 136 136 - 145 mmol/L 04/08/2025 9:51 AM EDT [facility] Potassium 4.6 3.5 - 5.2 mmol/L 04/08/2025 9:51 AM EDT [facility] Chloride 102 98 - 107 mmol/L 04/08/2025 9:51 AM EDT [facility] CO2 23.5 22.0 - 29.0 mmol/L 04/08/2025 9:51 AM EDT [facility] Calcium 8.4(L) 8.6 - 10.5 mg/dL 04/08/2025 9:51 AM EDT [facility] BUN/Creatinine Ratio 19.1 7.0 - 25.0 04/08/2025 9:51 AM EDT [facility] Anion Gap 10.5 5.0 - 15.0 mmol/L 04/08/2025 9:51 AM EDT [facility] eGFR 117.0 >60.0 mL/min/1.7 3 04/08/2025 9:51 AM EDT [facility] Blood Venipuncture / Unknown 04/08/2025 8:41 AM EDT 04/08/2025 9:09 AM EDT [facility] - 04/08/2025 9:51 AM EDT GFR [...] Jr., MD LAB BLOOD ORDERABLES nal Result [facility]
[address] [place] [address], * Heparin Anti-Xa (04/08/2025 8:41 AM EDT) Heparin Anti-Xa (UFH) 0.33 0.30 - 0.70 IU/ml 04/08/2025 9:40 AM EDT [facility] Blood Venipuncture / Unknown 04/08/2025 8:41 AM EDT 04/08/2025 9:10 AM EDT Sushil Dean Jr., MD LAB BLOOD ORDERABLES Fi nal Result [facility]
[address] [place] [address], * FL C Arm During Surgery (04/07/2025 9:32 PM EDT) Narrative SYSTEMGENERATED, DOCUMENTATION - 04/07/2025 9:38 PM EDT This procedure was auto-finalized with no dictation required. Sushil Dean Jr., MD IMG FLUOROSCOPY ORDERAB LES Final Result * Wound Culture - Swab, Leg, Right (04/07/2025 9:14 PM EDT) Wound Culture No growth at 3 days ALIZA 04/11/2025 10:40 AM EDT [facility] Gram Stain Occasional WBCs seen 04/11/2025 10:40 AM EDT [facility] Gram Stain No organisms seen 04/11/2025 10:40 AM EDT [facility] Swab Structure of right lower limb / Unknown Collection / Unknown 04/07/2025 9:14 PM EDT 04/08/2025 4:36 AM EDT Sushil Dean Jr., MD MICROBIOLOGY - GENERAL ORDERABLES Final Result [facility]
[address] [place] [address], [facility]
[address] [place] [address], * Anaerobic Culture - Swab, Leg, Right (04/07/2025 9:14 PM EDT) Anaerobic Culture No anaerobes isolated at 5 days ALIZA 04/13/2025 7:21 AM EDT [facility] Swab Structure of right lower limb / Unknown Collection / Unknown 04/07/2025 9:14 PM EDT 04/08/2025 4:36 AM EDT Sushil Dean Jr., MD MICROBIOLOGY - GENERAL ORDERABLES Final Result Performing Organization Address City/[facility]/ZIP Co de Phone Number [facility]
[address] [place] [address], * Anaerobic Culture - Tissue, Leg (04/07/2025 9:13 PM EDT) Anaerobic Culture No anaerobes isolated at 5 days ALIZA 04/13/2025 7:21 AM EDT [facility] Tissue Lower limb structure / Unknown Collection / Unknown 04/07/2025 9:13 PM EDT 04/08/2025 4:54 AM EDT Jason Álvarez DO MICROBIOLOGY - GENERAL ORDERABLE S Final Result [facility]
[address] [place] [address], * Tissue / Bone Culture - Tissue, Leg, Right (04/07/2025 9:13 PM EDT) Tissue Culture No growth at 3 days ALIZA 04/11/2025 10:36 AM EDT [facility] Gram Stain Rare (1+) WBCs seen 04/11/2025 10:36 AM EDT [facility] Gram Stain No organisms seen 04/11/2025 10:36 AM EDT [facility] Tissue Structure of right lower limb / Unknown 04/07/2025 9:13 PM EDT 04/08/2025 4:54 AM EDT Sushil Dean Jr., MD MICROBIOLOGY - GENERAL ORDERABLES Final Result Performing Organization Address City/[facility]/ZIP Co de Phone Number [facility]
[address] [place] [address], [place] [phone] [facility]
[address] [place] [address], [place] [phone] * (ABNORMAL) Wound Culture - Swab, Leg, Right (04/07/2025 9:07 PM EDT) Wound Culture Light growth (2+) Staphylococcus aureus, MRSA(A) ALIZA 04/10/2025 10:38 AM EDT [facility] Comment: Methicillin resistant Staphylococcus aureus, Patient may be an isolation risk. Gram Stain Few (2+) WBCs seen 04/10/2025 10:38 AM EDT [facility] Gram Stain No organisms seen 10:38 AM EDT [facility] Swab Structure of right lower [...] MD MICROBIOLOGY - GENERAL ORDERABLES Final Result [facility]
[address] [place] [address], [facility]
[address] [place] [address], * Anaerobic Culture - Swab, Leg, Right (04/07/2025 9:07 PM EDT) Pathologist [facility] Anaerobic Culture No anaerobes isolated at 5 days ALIZA 04/13/2025 7:21 AM EDT [facility] Swab Structure of right lower limb / Unknown Collection / Unknown 04/07/2025 9:07 PM EDT 04/08/2025 4:36 AM EDT Sushil Dean Jr., MD MICROBIOLOGY - GENERAL ORDERABLES Final Result Performing Organization Address [facility] Co de Phone Number [facility]
[address] [place] [address], * Heparin Anti-Xa (04/07/2025 9:10 AM EDT) [facility] Heparin Anti-Xa (UFH) 0.30 0.30 - 0.70 IU/ml 04/07/2025 10:12 AM EDT [facility] Blood Venipuncture / Unknown 04/07/2025 9:10 AM EDT 04/07/2025 9:38 AM EDT Una LundbergD LAB BLOOD ORDERABLES Final R esult Performing Organization Address City/[facility]/ZIP Co de Phone Number [facility]
[address] [place] [address], * (ABNORMAL) CBC Auto Differential (04/07/2025 9:10 AM EDT) Pathologist [facility] WBC 8.63 3.40 - 10.80 10*3/mm3 04/07/2025 9:50 AM EDT [facility] RBC 5.23 4.14 - 5.80 10*6/mm3 04/07/2025 9:50 [facility] Hemoglobin 14.7 13.0 - 17.7 g/dL 04/07/2025 9:50 AM [facility] Hematocrit 44.8 37.5 - 51.0 % 04/07/2025 9:50 AM [facility] MCV 85.7 79.0 - 97.0 fL 04/07/2025 9:50 AM EDT [facility] MCH 28.1 26.6 - 33.0 pg 04/07/2025 9:50 AM [facility] MCHC 32.8 31.5 - 35.7 g/dL 04/07/2025 9:50 AM [facility] RDW 12.8 12.3 - 15.4 % 04/07/2025 9:50 AM [facility] RDW-SD 39.9 37.0 - 54.0 fl 04/07/2025 9:50 AM [facility] MPV 10.8 6.0 - 12.0 fL 04/07/2025 9:50 AM [facility] Platelets 149 140 - 450 10*3/mm3 04/07/2025 9:50 AM [facility] Neutrophil % 66.7 42.7 - 76.0 % 04/07/2025 9:50 AM [facility] Lymphocyte % 20.5 19.6 - 45.3 % 04/07/2025 9:50 AM EDT [facility] Monocyte % 9.8 5.0 - 12.0 % 04/07/2025 9:50 AM [facility] Eosinophil % 2.1 0.3 - 6.2 % 04/07/2025 9:50 AM [facility] Basophil % 0.3 0.0 - 1.5 % 04/07/2025 9:50 AM [facility] Immature Grans % 0.6(H) 0.0 - 0.5 % 04/07/2025 9:50 AM EDT [facility] Neutrophils, Absolute 5.75 1.70 - 7.00 10*3/mm3 04/07/2025 9:50 AM EDT [facility] Lymphocytes, Absolute 1.77 0.70 - 3.10 10*3/mm3 04/07/2025 9:50 AM EDT [facility] Monocytes, Absolute 0.85 0.10 - 0.90 10*3/mm3 04/07/2025 9:50 AM EDT [facility] Eosinophils, Absolute 0.18 0.00 - 0.40 10*3/mm3 04/07/2025 9:50 AM EDT [facility] Basophils, Absolute 0.03 0.00 - 0.20 10*3/mm3 04/07/2025 9:50 AM EDT [facility] Immature Grans, Absolute 0.05 0.00 - 0.05 10*3/mm3 04/07/2025 9:50 AM EDT [facility] nRBC 0.0 0.0 - 0.2 /100 WBC 04/07/2025 9:50 AM EDT [facility] Blood Venipuncture / Unknown 04/07/2025 9:10 AM EDT 04/07/2025 9:38 AM EDT us Jason Álvarez DO LAB BLOOD ORDERABLES Final Resul t [facility]
[address] [place] [address], * (ABNORMAL) Basic Metabolic Panel (04/07/2025 9:10 AM EDT) Glucose 112(H) 65 - 99 mg/dL 04/07/2025 10:19 AM EDT [facility] BUN 13.1 6.0 - 20.0 mg/dL 04/07/2025 10:19 AM EDT [facility] Creatinine 0.77 0.76 - 1.27 mg/dL 04/07/2025 10:19 AM EDT [facility] Sodium 139 136 - 145 mmol/L 04/07/2025 10:19 AM EDT [facility] Potassium 4.2 3.5 - 5.2 mmol/L 04/07/2025 10:19 AM EDT [facility] Comment:Specimen hemolyzed. Result may be falsely elevated. Chloride 105 98 - 107 mmol/L 04/07/2025 10:19 AM EDT [facility] CO2 24.8 22.0 - 29.0 mmol/L 04/07/2025 10:19 AM EDT [facility] Calcium 8.6 8.6 - 10.5 mg/dL 04/07/2025 10:19 AM T [facility] BUN/Creatinine Ratio 17.0 7.0 - 25.0 04/07/2025 10:19 AM EDT [facility] Anion Gap 9.2 5.0 - 15.0 mmol/L 04/07/2025 10:19 AM T [facility] eGFR 113.2 >60.0 mL/min/1.7 3 04/07/2025 10:19 AM T [facility] Blood Venipuncture / Unknown 04/07/2025 9:10 AM EDT 04/07/2025 9:38 AM EDT Narrative [facility] - 04/07/2025 10:19 AM EDT [...] DO LAB BLOOD ORDERABLES Final Resul t [facility]
[address] [place] [address], * MRI Tibia Fibula Right With & [...] [place] 04/07/2025 9:58 AM EDT Workstation ID: [id number] Narrative 04/07/2025 9:58 AM EDT MRI TIBIA [...] [place] 04/07/2025 9:58 AM EDT Workstation ID: [id number] us Sushil Dean Jr., MD [facility] MRI ORDERABLES Mary Beth l Result * Heparin Anti-Xa (04/07/2025 1:42 AM EDT) Heparin Anti-Xa (UFH) 0.38 0.30 - 0.70 IU/ml 04/07/2025 2:14 AM EDT [facility] Blood Venipuncture / Unknown 04/07/2025 1:42 AM EDT 04/07/2025 1:54 AM EDT Chelsie Navarretesapna [facility] LAB BLOOD ORDERABLES Final R esult Performing Organization Address City/[facility]/ZIP Co de Phone Number [facility]
[address] [place] [address], * Heparin Anti-Xa (04/06/2025 7:16 PM EDT) Pathologist [facility] Heparin Anti-Xa (UFH) 0.33 0.30 - 0.70 IU/ml 04/06/2025 7:50 PM EDT [facility] Blood Venipuncture / Unknown 04/06/2025 7:16 PM EDT 04/06/2025 7:35 PM EDT Cherri Beatty [facility] LAB BLOOD ORDERABLES Final Res ult Performing Organization Address City/[facility] Co de Phone Number [facility]
[address] [place] [address], * Potassium (04/06/2025 7:16 PM EDT) Pathologist [facility] Potassium 4.0 3.5 - 5.2 mmol/L 04/06/2025 7:53 PM EDT [facility] Blood Venipuncture / Unknown 04/06/2025 7:16 PM EDT 04/06/2025 7:35 PM EDT Jason Álvarez DO LAB BLOOD ORDERABLES Final Resul t Performing Organization Address City/[facility]/ZIP Co de Phone Number [facility]
[address] [place] [address], * (ABNORMAL) Heparin Anti-Xa (04/06/2025 12:36 PM EDT) Heparin Anti-Xa (UFH) 0.24(L) 0.30 - 0.70 IU/ml 04/06/2025 1:23 PM EDT [facility] Blood Venipuncture / Unknown 04/06/2025 12:36 PM EDT 04/06/2025 1:07 PM EDT Una LundbergD LAB BLOOD ORDERABLES Final R esult [facility]
[address] [place] [address], * (ABNORMAL) Heparin Anti-Xa (04/06/2025 3:42 AM EDT) [facility] Heparin Anti-Xa (UFH) 0.25(L) 0.30 - 0.70 IU/ml 04/06/2025 5:30 AM EDT [facility] Blood Venipuncture / Unknown 04/06/2025 3:42 AM EDT 04/06/2025 4:59 AM EDT Chelsie Turpin [facility] LAB BLOOD ORDERABLES Final R esult [facility]
[address] [place] [address], * (ABNORMAL) Basic Metabolic Panel (04/06/2025 3:42 AM EDT) [facility] Glucose 94 65 - 99 mg/dL 04/06/2025 5:59 AM EDT [facility] BUN 12.8 6.0 - 20.0 mg/dL 04/06/2025 5:59 AM EDT [facility] Creatinine 0.80 0.76 - 1.27 mg/dL 04/06/2025 5:59 AM EDT [facility] Sodium 138 136 - 145 mmol/L 04/06/2025 5:59 AM EDT [facility] Potassium 3.6 3.5 - 5.2 mmol/L 04/06/2025 5:59 AM EDT [facility] Chloride 103 98 - 107 mmol/L 04/06/2025 5:59 AM EDT [facility] CO2 24.2 22.0 - 29.0 mmol/L 04/06/2025 5:59 AM EDT [facility] Calcium 8.0(L) 8.6 - 10.5 mg/dL 04/06/2025 5:59 AM EDT [facility] BUN/Creatinine Ratio 16.0 7.0 - 25.0 04/06/2025 5:59 AM EDT [facility] Anion Gap 10.8 5.0 - 15.0 mmol/L 04/06/2025 5:59 AM EDT [facility] eGFR 111.9 >60.0 mL/min/1.7 3 04/06/2025 5:59 AM EDT [facility] Blood Venipuncture / Unknown 04/06/2025 3:42 AM EDT 04/06/2025 5:20 AM EDT Narrative [facility] - 04/06/2025 5:59 AM EDT [...] DO LAB BLOOD ORDERABLES Final Resul t [facility]
[address] [place] [address], * (ABNORMAL) CBC Auto Differential (04/06/2025 3:41 AM EDT) WBC 10.86(H) 3.40 - 10.80 10*3/mm3 04/06/2025 5:04 AM EDT [facility] RBC 5.08 4.14 - 5.80 10*6/mm3 04/06/2025 5:04 AM EDT [facility] Hemoglobin 13.9 13.0 - 17.7 g/dL 04/06/2025 5:04 AM EDT [facility] Hematocrit 43.7 37.5 - 51.0 % 04/06/2025 5:04 AM EDT [facility] MCV 86.0 79.0 - 97.0 fL 04/06/2025 5:04 AM EDT [facility] MCH 27.4 26.6 - 33.0 pg 04/06/2025 5:04 AM EDT [facility] MCHC 31.8 31.5 - 35.7 g/dL 04/06/2025 5:04 AM EDT [facility] RDW 12.8 12.3 - 15.4 % 04/06/2025 5:04 AM EDT [facility] RDW-SD 40.0 37.0 - 54.0 fl 04/06/2025 5:04 AM EDT [facility] MPV 11.7 6.0 - 12.0 fL 04/06/2025 5:04 AM EDT [facility] Platelets 115(L) 140 - 450 10*3/mm3 04/06/2025 5:04 AM EDT [facility] Neutrophil % 65.3 42.7 - 76.0 % 04/06/2025 5:04 AM EDT [facility] Lymphocyte % 20.5 19.6 - 45.3 % 04/06/2025 5:04 AM EDT [facility] Monocyte % 11.8 5.0 - 12.0 % 04/06/2025 5:04 AM EDT [facility] Eosinophil % 1.8 0.3 - 6.2 % 04/06/2025 5:04 AM EDT [facility] Basophil % 0.3 0.0 - 1.5 % 04/06/2025 5:04 AM EDT [facility] Immature Grans % 0.3 0.0 - 0.5 % 04/06/2025 5:04 AM EDT [facility] Neutrophils, Absolute 7.09(H) 1.70 - 7.00 10*3/mm3 04/06/2025 5:04 AM EDT [facility] Lymphocytes, Absolute 2.23 0.70 - 3.10 10*3/mm3 04/06/2025 5:04 AM EDT [facility] Monocytes, Absolute 1.28(H) 0.10 - 0.90 10*3/mm3 04/06/2025 5:04 AM EDT [facility] Eosinophils, Absolute 0.20 0.00 - 0.40 10*3/mm3 04/06/2025 5:04 AM EDT [facility] Basophils, Absolute 0.03 0.00 - 0.20 10*3/mm3 04/06/2025 5:04 AM EDT [facility] Immature Grans, Absolute 0.03 0.00 - 0.05 10*3/mm3 04/06/2025 5:04 AM EDT [facility] nRBC 0.0 0.0 - 0.2 /100 WBC 04/06/2025 5:04 AM EDT [facility] Blood Venipuncture / Unknown 04/06/2025 3:41 AM EDT 04/06/2025 4:58 AM EDT us Jason Álvarez DO LAB BLOOD ORDERABLES Final Resul t [facility]
[address] [place] [address], * Heparin Anti-Xa (04/05/2025 8:43 PM EDT) Heparin Anti-Xa (UFH) 0.38 0.30 - 0.70 IU/ml 04/05/2025 9:09 PM EDT [facility] Blood Venipuncture / Unknown 04/05/2025 8:43 PM EDT 04/05/2025 8:55 PM EDT Cherri Beatty [facility] LAB BLOOD ORDERABLES Final Res ult Performing Organization Address [facility] Co de Phone Number [facility]
[address] [place] [address], * CK (04/05/2025 12:15 PM EDT) Creatine Kinase 140 20 - 200 U/L 04/05/2025 1:31 PM EDT [facility] Blood Venipuncture / Unknown 04/05/2025 12:15 PM EDT 04/05/2025 1:03 PM EDT Carlton Mead MD LAB BLOOD ORDERABLES Final R esult Performing Organization Address [facility] Co de Phone Number [facility]
[address] [place] [address], [place] [phone] * (ABNORMAL) Heparin Anti-Xa (04/05/2025 12:15 PM EDT) Heparin Anti-Xa (UFH) 0.17(L) 0.30 - 0.70 IU/ml 04/05/2025 1:21 PM EDT [facility] Blood Venipuncture / Unknown 04/05/2025 12:15 PM EDT 04/05/2025 1:04 PM EDT Una LundbergD LAB BLOOD ORDERABLES Final R esult Performing Organization Address City/[facility]/ZIP Co de Phone Number [facility]
[address] [place] [address], * (ABNORMAL) aPTT (04/05/2025 3:54 AM EDT) [facility] PTT 35.3(L) 60.0 - 90.0 seconds 04/05/2025 4:31 AM EDT [facility] Blood Venipuncture / Unknown 04/05/2025 3:54 AM EDT 04/05/2025 4:15 AM EDT Narrative [facility] - 04/05/2025 4:31 AM EDT PTT = The equivalent PTT values for the therapeutic range of heparin levels at 0.3 to 0.5 U/ml are 60 to 70 seconds. Una Perla [employer] LAB BLOOD ORDERABLES Final R esult Performing Organization Address [facility] Co de Phone Number [facility]
[address] [place] [address], * Heparin Anti-Xa (04/05/2025 3:54 AM EDT) [facility] Heparin Anti-Xa (UFH) 0.30 0.30 - 0.70 IU/ml 04/05/2025 4:32 AM EDT [facility] Blood Venipuncture / Unknown 04/05/2025 3:54 AM EDT 04/05/2025 4:15 AM EDT [employer] LAB BLOOD ORDERABLES Final R esult Performing Organization Address City/[facility] Co de Phone Number [facility]
[address] [place] [address], * (ABNORMAL) CBC Auto Differential (04/05/2025 3:54 AM EDT) [facility] WBC 11.18(H) 3.40 - 10.80 10*3/mm3 04/05/2025 4:20 AM EDT [facility] RBC 5.00 4.14 - 5.80 10*6/mm3 04/05/2025 4:20 AM EDT [facility] Hemoglobin 13.9 13.0 - 17.7 g/dL 04/05/2025 4:20 AM EDT [facility] Hematocrit 42.4 37.5 - 51.0 % 04/05/2025 4:20 AM EDT [facility] MCV 84.8 79.0 - 97.0 fL 04/05/2025 4:20 AM EDT [facility] MCH 27.8 26.6 - 33.0 pg 04/05/2025 4:20 [facility] MCHC 32.8 31.5 - 35.7 g/dL 04/05/2025 4:20 AM [facility] RDW 12.9 12.3 - 15.4 % 04/05/2025 4:20 AM [facility] RDW-SD 39.7 37.0 - 54.0 fl 04/05/2025 4:20 AM [facility] MPV 10.2 6.0 - 12.0 fL 04/05/2025 4:20 AM [facility] Platelets 160 140 - 450 10*3/mm3 04/05/2025 4:20 AM [facility] Neutrophil % 73.5 42.7 - 76.0 % 04/05/2025 4:20 AM [facility] Lymphocyte % 14.0(L) 19.6 - 45.3 % 04/05/2025 4:20 AM EDT [facility] Monocyte % 11.0 5.0 - 12.0 % 04/05/2025 4:20 AM [facility] Eosinophil % 0.8 0.3 - 6.2 % 04/05/2025 4:20 AM [facility] Basophil % 0.3 0.0 - 1.5 % 04/05/2025 4:20 AM EDT [facility] Immature Grans % 0.4 0.0 - 0.5 % 04/05/2025 4:20 AM EDT [facility] Neutrophils, Absolute 8.23(H) 1.70 - 7.00 10*3/mm3 04/05/2025 4:20 AM EDT [facility] Lymphocytes, Absolute 1.56 0.70 - 3.10 10*3/mm3 04/05/2025 4:20 AM EDT [facility] Monocytes, Absolute 1.23(H) 0.10 - 0.90 10*3/mm3 04/05/2025 4:20 AM EDT [facility] Eosinophils, Absolute 0.09 0.00 - 0.40 10*3/mm3 04/05/2025 4:20 AM EDT [facility] Basophils, Absolute 0.03 0.00 - 0.20 10*3/mm3 04/05/2025 4:20 AM EDT [facility] Immature Grans, Absolute 0.04 0.00 - 0.05 10*3/mm3 04/05/2025 4:20 AM EDT [facility] nRBC 0.0 0.0 - 0.2 /100 WBC 04/05/2025 4:20 AM EDT [facility] Blood Venipuncture / Unknown 04/05/2025 3:54 AM EDT 04/05/2025 4:16 AM EDT Una Perla PharmD LAB BLOOD ORDERABLES Final R esult [facility]
[address] [place] [address], * (ABNORMAL) Basic Metabolic Panel (04/05/2025 3:54 AM EDT) [facility] Signature Glucose 152(H) 65 - 99 mg/dL 04/05/2025 4:40 AM EDT [facility] BUN 17.3 6.0 - 20.0 mg/dL 04/05/2025 4:40 AM T [facility] Creatinine 0.92 0.76 - 1.27 mg/dL 04/05/2025 4:40 AM EDT [facility] Sodium 136 136 - 145 mmol/L 04/05/2025 4:40 AM EDT [facility] Potassium 3.9 3.5 - 5.2 mmol/L 04/05/2025 4:40 AM EDT [facility] Chloride 103 98 - 107 mmol/L 04/05/2025 4:40 AM EDT [facility] CO2 24.0 22.0 - 29.0 mmol/L 04/05/2025 4:40 AM T [facility] Calcium 7.8(L) 8.6 - 10.5 mg/dL 04/05/2025 4:40 AM [facility] BUN/Creatinine Ratio 18.8 7.0 - 25.0 04/05/2025 4:40 AM T [facility] Anion Gap 9.0 5.0 - 15.0 mmol/L 04/05/2025 4:40 AM [facility] eGFR 105.2 >60.0 mL/min/1.7 3 04/05/2025 4:40 AM [facility] Blood Venipuncture / Unknown 04/05/2025 3:54 AM EDT 04/05/2025 4:15 AM EDT [facility] - 04/05/2025 4:40 AM EDT GFR [...] Address [facility] Co de Phone Number [facility]
[address] [place] [address], * (ABNORMAL) aPTT (04/05/2025 12:18 AM EDT) PTT 33.6(L) 60.0 - 90.0 seconds 04/05/2025 12:53 AM EDT [facility] Blood Venipuncture / Unknown 04/05/2025 12:18 AM EDT 04/05/2025 12:37 AM EDT Narrative [facility] - 04/05/2025 12:53 AM EDT PTT = The equivalent PTT values for the therapeutic range of heparin levels at 0.3 to 0.5 U/ml are 60 to 70 seconds. Una Perla PharmD LAB BLOOD ORDERABLES Final R esult Performing Organization Address [facility] Co de Phone Number [facility]
[address] [place] [address], [place] [phone] * (ABNORMAL) Protime-INR (04/05/2025 12:18 AM EDT) Protime 15.9(H) 12.2 - 15.3 Seconds 04/05/2025 12:53 AM EDT [facility] INR 1.19(H) 0.89 - 1.12 04/05/2025 12:53 AM EDT [facility] Blood Venipuncture / Unknown 04/05/2025 12:18 AM EDT 04/05/2025 12:37 AM EDT Una Perla PharmD LAB BLOOD ORDERABLES Final R esult Performing Organization Address City/[facility] Co de Phone Number [facility]
[address] [place] [address], [place] [phone] * Heparin Anti-Xa (04/05/2025 12:18 AM EDT) Heparin Anti-Xa (UFH) 0.39 0.30 - 0.70 IU/ml 04/05/2025 12:54 AM EDT [facility] Blood Venipuncture / Unknown 04/05/2025 12:18 AM EDT 04/05/2025 12:37 AM EDT Una Perla PharmD LAB BLOOD ORDERABLES Final R esult [facility]
[address] [place] [address], * MRI Tibia Fibula Right With & [...] MD 04/04/2025 11:00 PM EDT Workstation ID: [id number] Narrative 04/04/2025 11:00 PM EDT MRI TIBIA [...] MD 04/04/2025 11:00 PM EDT Workstation ID: [id number] us Leonora Shepherd MD IMG MRI ORDERABLES Final Resu lt * POC Creatinine (04/04/2025 2:49 PM EDT) [facility] Creatinine 1.10 0.60 - 1.30 mg/dL 04/07/2025 7:14 PM EDT [facility] Comment:Serial Number: [id number] Venous Blood 04/04/2025 2:49 PM EDT 04/07/2025 7:14 PM EDT Jason Álvarez DO POINT OF CARE TEST ORDERABLES Fi nal Result [facility]
[address] [place] [address], * (ABNORMAL) CBC Auto Differential (04/04/2025 2:47 PM EDT) [facility] WBC 12.72(H) 3.40 - 10.80 10*3/mm3 04/04/2025 2:56 PM EDT [facility] RBC 5.64 4.14 - 5.80 10*6/mm3 04/04/2025 2:56 PM EDT [facility] Hemoglobin 15.3 13.0 - 17.7 g/dL 04/04/2025 2:56 PM EDT [facility] Hematocrit 47.9 37.5 - 51.0 % 04/04/2025 2:56 PM EDT [facility] MCV 84.9 79.0 - 97.0 fL 04/04/2025 2:56 PM EDT [facility] MCH 27.1 26.6 - 33.0 pg 04/04/2025 2:56 PM EDT [facility] MCHC 31.9 31.5 - 35.7 g/dL 04/04/2025 2:56 PM EDT [facility] RDW 13.1 12.3 - 15.4 % 04/04[facility]2025 2[facility] 40.3 37.0 - 54.0 fl 04/04/2025 2:56 PM EDT [facility] MPV 9.4 6.0 - 12.0 fL 04/04/2025 2:56 PM EDT [facility] Platelets 232 140 - 450 10*3/mm3 04/04/2025 2:56 PM EDT [facility] Neutrophil % 74.9 42.7 - 76.0 % 04/04/2025 2:56 PM EDT [facility] Lymphocyte % 13.1(L) 19.6 - 45.3 % 04/04/2025 2:56 [facility] Monocyte % 11.2 5.0 - 12.0 % 04/04/2025 2:56 [facility] Eosinophil % 0.4 0.3 - 6.2 % 04/04/2025 2:56 PM EDT [facility] Basophil % 0.2 0.0 - 1.5 % 04/04/2025 2:56 [facility] Immature Grans % 0.2 0.0 - 0.5 % 04/04/2025 2:56 PM [facility] Neutrophils, Absolute 9.52(H) 1.70 - 7.00 10*3/mm3 04/04/2025 2:56 PM [facility] Lymphocytes, Absolute 1.66 0.70 - 3.10 10*3/mm3 04/04/2025 2:56 PM EDT [facility] Monocytes, Absolute 1.43(H) 0.10 - 0.90 10*3/mm3 04/04/2025 2:56 PM EDT [facility] Eosinophils, Absolute 0.05 0.00 - 0.40 10*3/mm3 04/04/2025 2:56 [facility] Basophils, Absolute 0.03 0.00 - 0.20 10*3/mm3 04/04/2025 2:56 PM EDT [facility] Immature Grans, Absolute 0.03 0.00 - 0.05 10*3/mm3 04/04/2025 2:56 PM EDT [facility] nRBC 0.0 0.0 - 0.2 /100 WBC 04/04/2025 2:56 PM EDT [facility] Blood Venipuncture / Unknown 04/04/2025 2:47 PM EDT 04/04/2025 2:52 PM EDT Mario Ortiz GhanshyamTouristR LAB BLOOD ORDERABLES Fin al Result Performing Organization Address City/[facility]/ZIP Co de Phone Number [facility]
[address] [place] [address], * (ABNORMAL) C-reactive Protein (04/04/2025 2:47 PM EDT) C-Reactive Protein 8.57(H) 0.00 - 0.50 mg/dL 04/04/2025 3:26 PM EDT [facility] Blood Venipuncture / Unknown 04/04/2025 2:47 PM EDT 04/04/2025 2:52 PM EDT Mairo Ortiz GhanshyamTouristR LAB BLOOD ORDERABLES Fin al Result Performing Organization Address [facility] de Phone Number [facility]
[address] [place] [address], * (ABNORMAL) Sedimentation Rate (04/04/2025 2:47 PM EDT) Sed Rate 51(H) 0 - 15 mm/hr 04/04/2025 3:06 PM EDT [facility] Blood Venipuncture / Unknown 04/04/2025 2:47 PM EDT 04/04/2025 2:52 PM EDT Mario Ortiz [facility] LAB BLOOD ORDERABLES Fin al Result Performing Organization Address City/[facility]/ZIP Co de Phone Number [facility]
[address] [place] [address], * Comprehensive Metabolic Panel (04/04/2025 2:47 PM EDT) [facility] Glucose 90 65 - 99 mg/dL 04/04/2025 3:26 PM EDT [facility] BUN 18.3 6.0 - 20.0 mg/dL 04/04/2025 3:26 PM EDT [facility] Creatinine 0.94 0.76 - 1.27 mg/dL 04/04/2025 3:26 PM EDT [facility] Sodium 136 136 - 145 mmol/L 04/04/2025 3:26 PM EDT [facility] Potassium 3.8 3.5 - 5.2 mmol/L 04/04/2025 3:26 PM EDT [facility] Chloride 100 98 - 107 mmol/L 04/04/2025 3:26 PM EDT [facility] CO2 25.3 22.0 - 29.0 mmol/L 04/04/2025 3:26 PM EDT [facility] Calcium 8.6 8.6 - 10.5 mg/dL 04/04/2025 3:26 PM EDT [facility] Total Protein 7.3 6.0 - 8.5 g/dL 04/04/2025 3:26 PM EDT [facility] Albumin 4.1 3.5 - 5.2 g/dL 04/04/2025 3:26 PM EDT [facility] ALT (SGPT) 26 1 - 41 U/L 04/04/2025 3:26 PM EDT [facility] AST (SGOT) 25 1 - 40 U/L 04/04/2025 3:26 PM EDT [facility] Alkaline Phosphatase 106 39 - 117 U/L 04/04/2025 3:26 PM EDT [facility] Total Bilirubin 1.0 0.0 - 1.2 mg/dL 04/04/2025 3:26 PM EDT [facility] Globulin 3.2 gm/dL 04/04/2025 3:26 PM EDT [facility] Comment:Calculated Result A/G Ratio 1.3 g/dL 04/04/2025 3:26 PM EDT [facility] BUN/Creatinine Ratio 19.5 7.0 - 25.0 04/04/2025 3:26 PM EDT [facility] Anion Gap 10.7 5.0 - 15.0 mmol/L 04/04/2025 3:26 PM EDT [facility] eGFR 102.5 >60.0 mL/min/1.7 3 04/04/2025 3:26 PM EDT [facility] Blood Venipuncture / Unknown 04/04/2025 2:47 PM EDT 04/04/2025 2:52 PM EDT Narrative [facility] - 04/04/2025 3:26 PM EDT [...] DO LAB BLOOD ORDERABLES Fin al Result [facility]
[id number] [place] [address], documented in this encounter Visit Diagnoses Diagnosis [...] 04/05/2025 3:33 PM EDT 2,000 Units heparin 20626 units/250 mL (100 units/mL) in 0.45 % [...] BPA Driven Protocol Open Order & [facility] Electrolyte Replacement Protocol Algorithm to [...] BPA Driven Protocol Open Order & [facility] Electrolyte Replacement Protocol Algorithm to [...] disposal. 0831 (Given - Provider: Amber Salazar, SALES REPRESENTATIVE SALES MANAGER)194 (Given - Provider: Anahy Marcelino, SALES REPRESENTATIVE SALES MANAGER)2129 (Canceled Entry - Provider: Anahy Marcelino [...] Continuous Medication Order 04/09/2025 04/10/2025 04/11/2025 heparin 74764 units/250 mL (100 units/mL) in 0.45 % [...] (Not Given: See Alt - Provider: Shirley Hrat RN) acetaminophen (TYLENOL) suppository 325 mg(Linked Group [...] 0906 (Not Given: See Alt - Provider: Shriley Hart RN)1508 (Not Given: See Alt - [...] BPA Driven Protocol Open Order & [facility] Electrolyte Replacement Protocol Algorithm to [...] BPA Driven Protocol Open Order & [facility] Electrolyte Replacement Protocol Algorithm to [...] documented as of this encounter 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
--- OUTSIDE RECORDS SUMMARY | 2025-04-07 18:00 | XMS_ITS | Encounter Summary ---
[facility] Address [address] [place] [address] Care Team Providers Care Polymer Materials Consultant Name Role Phone Provider, No Known Primary Care Provider Unavail able Reason for Visit * Reason Comments Leg Swelling * Auth/Cert Specialty Diagnoses / Procedures Referred By Contac t Referred To Contact Diagnoses Right BKA infection Referral ID Status Reason Start Date Expiration Date Visits Re quested Visits Authorized [id number] 1 1 Encounter Details Date Type Department Care Team (Late st Contact Info) Description 04/07/2025 6:00 PM EDT - 04/07/2025 6:52 PM EDT Surgery [facility] OR [address] [place] [address] Sushil Dean Jr., MD [address] [place] [address] [address] [id number] LEG DEBRIDEMENT, IRRIGATION Social History Tobacco Use Types Packs/Day Years Used Date Smoking Tobacco: Never Smokeless Tobacco: Never Tobacco Cessation:Counseling Given: Not Answered Alcohol Use Standard Drinks/Week Comments Not Currently 0 (1 standard drink = 0.6 oz pur e alcohol) [facility] Utilities Answer Date Recorded In the past 12 months has tomoguides electric, gas, oil, or water company threatened [...] or training? Not on file Preferred Language South Korean 04/07/2025 Sex and Gender Information Value Date [...] 2:25 PM EDT Cherri Grimm RN * [place] Suicide Severity Rating Scale (Screener/Recent Self-Report) Question [...] from the original note were not included. [facility] Medicine Services DISCHARGE SUMMARY Patient [...] Date/Time Wound Culture - Swab, Leg, Right [[id number]] (Abnormal) (Susceptibility) Collected: 04/07/252106 Lab Status: Final [...] Units Date/Time FL C Arm During Surgery [[id number]] Resulted: 04/07/252137 Updated: 04/07/252137 Narrative: This procedure was auto-finalized with no dictation required. MRI Tibia Fibula Right With & Without Contrast [[id number]] Collected: 04/07/25 0938 Updated: 04/07/25 1001 Narrative: [...] Buenrostro 04/07/2025 9:58 AM EDT Workstation ID: [id number] MRI Tibia Fibula Right With & Without Contrast [[id number]] Collected: 04/04/252256 Updated: 04/04/252302 Narrative: MRI TIBIA [...] represent a small area of phlegmonous change ([id number] image 10) measuring approximately 1.6 cm which [...] MD 04/04/2025 11:00 PM EDT Workstation ID: [id number] Pending Labs Order Current Status Fungus Culture [...] Male) Date of 1980 Social Security Number [id number] [place] [address] [place] [address] Restorationism Unknown Marital Status Unknown Admission Date 04/04/2025 Admission Type Emergency Admitting Provider Jadyn Richardson DO Attending Provider Jadyn Richardson DO Department, Room/Bed [facility] 5G, S565/1 Discharge Date Discharge Disposition Discharge Destination Attending Provider: Jadyn Richardson DO Allergies: Ceftin [Cefuroxime], Keflex [Cephalexin], Latex Isolation: None Infection: MRSA (05/11/23) Code Status: CPR Ht: 180.3 cm (71 ) Wt: 134 kg (295 lb) Admission Cmt: None 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 Insurance as of 04/04/2025 Primary Coverage Payor Plan Insurance Group Employer/Plan Group [place] [id number] Payor Plan Address Payor Plan Phone Number Payor Plan Fax Number Effective Dates [employer] [address] [address] 08/10/2023 - None Entered Formerly [facility] [address] Subscriber Name Subscriber Date Member ID WON DENNIS 1980 [id number] Emergency Contacts Avionic Technician (Rel.) Home Phone Work Phone Mobile Phone Avril Dennis (Spouse) -- -- [phone] Robert Hackett (Relative) -- -- [phone] [facility] 5G [address] [facility] [address] Patient: ROOM: [facility] Won Dennis [address] [place] [address] : 1980 SSN: [id number] Sex: M PCP: Provider, No Known Emergency Contact Information Name Relation Home Work Mobile Avril Dennis Spouse [phone] Other Contacts Name Relation Home Work Mobile Robert Hackett Relative [phone] INSURANCE PAYOR PLAN GROUP # SUBSCRIBER ID Primary: Secondary: MEDICARE [place] [id number] Admitting Diagnosis: 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 Outpatient intravenous antibiotic therapy: Daptomycin 800 mg IV daily to be supplied by [facility] 2. Home health to perform [...] INFECTIOUS DISEASE Progress Note Won Dennis 1980 [id number] Date of Consult: 04/10/2025 Admission Date: 04/04/2025 [...] which prompted him to seek treatment at [facility]. He is known to Dr. [...] Jr., MD, 20 mg at 04/09/25906 heparin 99952 units/250 mL (100 units/mL) in 0.45 % [...] injection 15 mg, 15 mg, Intravenous, Once, Moinsha Jones, DAVID Magnesium Standard Dose Replacement - [...] Units Date/Time FL C Arm During Surgery [[id number]] Resulted: 04/07/252137 Updated: 04/07/252137 Narrative: This procedure was auto-finalized with no dictation required. MRI Tibia Fibula Right With & Without Contrast [[id number]] Collected: 04/07/2538 Updated: 04/07/25 1001 Narrative: MRI [...] Buenrostro 04/07/2025 9:58 AM EDT Workstation ID: [id number] Impression: Recurrent Right BKA stump abscess/cellulitis- this [...] discussed his disposition with the pharmacist at [facility] today. I will sign off Outpatient orders: 1. Outpatient intravenous antibiotic therapy: Daptomycin 800 mg IV daily to be supplied by [facility] 2. Home health to perform [...] 04/10/251323 Creation Time: 04/10/251323 Signed Expand All [facility] Medicine Services PROGRESS NOTE Patient Name: [...] Date/Time Wound Culture - Swab, Leg, Right [[id number]] (Abnormal) (Susceptibility) Collected: 04/07/252106 Lab Status: Final [...] Row Name 04/06/25 1143 Sit-Stand Transfer Sit-Stand [place] (Transfers) modified independence - Comment, (Sit-Stand Transfer) Pt stood from recliner. Not holding onto walker, pt able to pull his pants up while balancing on his one leg. -LM Row Name 04/06/25 1143 Gait/Stairs (Locomotion) [place] Level (Gait) modified independence - Distance in [...] Motion bilateral lower extremity ROM WFL -LM [facility] Name 04/06/25 1145 Strength Comprehensive (MMT) General Manual Muscle Testing (MMT) Assessment no strength deficits identified BLEs -LM [facility] Name 04/06/25 1145 Balance Balance Assessment [...] Physical Therapist Goals/Plan No documentation. Clinical Impression [facility] 04/06/25 1146 Pain Pretreatment Pain Rating 0/10 - no pain -LM Posttreatment Pain Rating 0/10 - no pain -LM [facility] 04/06/25 1146 Plan of Care Review Plan of Care Reviewed With patient -LM Outcome Evaluation PT evaluation completed. Pt demonstrated independence with all mobility including ambulating 100 feet using rw - no unsteadiness noted. Pt reports he feels at baseline and doesn't think he needs skilled PT while here. Recommend home at d/c. PT signing off. -LM [facility] Name 04/06/25 1146 Therapy Assessment/Plan (PT) Criteria for Skilled Interventions Met (PT) no;no problems identified which require skilled intervention -LM Therapy Frequency (PT) evaluation only -LM Predicted Duration of Therapy Intervention (PT) Eval Only -LM [facility] Name 04/06/25 1146 Vital Signs Pretreatment Heart Rate (beats/min) 86 -LM Posttreatment Heart Rate (beats/min) 96 -LM Pre SpO2 (%) 95 -LM O2 Delivery Pre Treatment room air -LM Post SpO2 (%) 96 -LM O2 Delivery Post Treatment room air -LM Pre Patient Position Sitting -LM Post Patient Position Sitting -LM [facility] Name 04/06/25 1146 Positioning and Restraints [...] Nurse Physical Therapy Education Title: PT OT FINE JEWEL[employer] SALES ASSOCIATE Therapies (Done) Topic: Physical Therapy (Done) Point: Mobility training (Done) Learning Progress Summary Patient Acceptance, E, VU,DU by at 04/06/2025 1147 Point: Precautions (Done) Learning Progress Summary Patient Acceptance, E, VU,DU by at 04/06/2025 1147 User Cabrera Initials Effective Dates Name Provider Type [facility] 01/24/25 - Susan Cavazos, PT Physical Therapist [...] Description Service Date Service Provider Modifiers Qty [id number] PT EVAL LOW COMPLEXITY 3 04/06/2025 Susan [...] mg Daily 04/05/2025 -- Route: Oral heparin 80114 units/250 mL (100 units/mL) in 0.45 % [...] Dean MD April 21 vs April 22 [facility] [address], [address] Formerly [facility], [address] Please schedule at [phone] VONDA Garcia 04/11/25 08:32 EDT Cosigned by Sushil Dean Jr., MD at 04/19/2025 10:33 AM EDT Associated attestation - Sushil Dean Jr., MD - 04/19/2025 10:33 AM EDT I have reviewed this documentation and agree. * Rosario Hill APRN - 04/10/2025 1:24 PM EDT Images from the original note were not included. [facility] Medicine Services PROGRESS NOTE Patient [...] Date/Time Wound Culture - Swab, Leg, Right [[id number]] (Abnormal) (Susceptibility) Collected: 04/07/252106 Lab Status: Final [...] mg Daily 04/05/2025 -- Route: Oral heparin 55344 units/250 mL (100 units/mL) in 0.45 % [...] Dean MD April 21 vs April 22 [facility] [address] [facility], [address] [facility], [address] Please schedule at [phone] VONDA Garcia 04/10/25 09:01 EDT Cosigned by Sushil Dean Jr., MD at 04/19/2025 10:33 AM EDT Associated attestation - Sushil Dean Jr., MD - 04/19/2025 10:33 AM EDT I have reviewed this documentation and agree. * Carlton Mead MD - 04/10/2025 7:38 AM EDT Images from the original note were not included. INFECTIOUS DISEASE Progress Note Won Dennis 1980 [id number] Date of Consult: 04/10/2025 Admission Date: 04/04/2025 [...] which prompted him to seek treatment at [facility]. He is known to Dr. [...] IRRIGATION; Surgeon: Sushil Dean Jr., MD; Location: [email or web address]; Service: Orthopedics; Laterality: Right; PLACEMENT OF WOUND VAC Right 04/07/2025 Procedure: WOUND VACUUM ASSISTED CLOSURE; Surgeon: Sushil Dean Jr., MD; Location: [email or web address] OR; Service: Orthopedics; Laterality: Right; WOUND CLOSURE [...] Jr., MD, 20 mg at 04/09/25906 heparin 22461 units/250 mL (100 units/mL) in 0.45 % NaCl infusion, 18 Units/kg/hr, Intravenous, Titrated, Una Perla, PharmD, Last Rate: 24.1 mL/hr at 04/10/25312, 18 Units/kg/hr at 04/10/25312 hydroCHLOROthiazide tablet 12.5 mg, 12.5 mg, Oral, Daily, Sushli Dean Jr., MD, 12.5 mg at 04/09/25905 [...] % 100 mL MBP Ordering Provider: Leonora Shehperd MD 2,000 mg 200 mL/hr over 30 [...] Units Date/Time FL C Arm During Surgery [[id number]] Resulted: 04/07/252137 Updated: 04/07/252137 Narrative: This procedure was auto-finalized with no dictation required. MRI Tibia Fibula Right With & Without Contrast [[id number]] Collected: 04/07/25937 Updated: 04/07/25 100 Narrative: MRI [...] Buenrostro 04/07/2025 9:58 AM EDT Workstation ID: [id number] Impression: Recurrent Right BKA stump abscess/cellulitis- this [...] discussed his disposition with the pharmacist at [facility] today. I will sign off Outpatient orders: 1. Outpatient intravenous antibiotic therapy: Daptomycin 800 mg IV daily to be supplied by [facility] 2. Home health to perform [...] MD 04/10/2025 07:38 EDT * Larisa Hamilton [facility] - 04/10/2025 7:17 AM EDT Pharmacy [...] from the original note were not included. [facility] Medicine Services PROGRESS NOTE Patient [...] Date/Time Wound Culture - Swab, Leg, Right [[id number]] (Abnormal) Collected: 04/07/252106 Lab Status: Preliminary result [...] Jason Álvarez DO 04/09/25 * Larisa Hamilton [facility] - 04/09/2025 11:36 AM EDT Pharmacy [...] mg Daily 04/05/2025 -- Route: Oral heparin 15358 units/250 mL (100 units/mL) in 0.45 % [...] in 2 weeks for incision check, radiographs [facility] [address] [facility], [address] [facility], [address] Please schedule at [phone] VONDA Garcia 04/09/25 09:18 EDT Cosigned by Sushil Dean Jr., MD at 04/19/2025 10:33 AM EDT Associated attestation - Sushil Dean Jr., MD - 04/19/2025 10:33 AM EDT I have reviewed this documentation and agree. * Carlton Mead MD - 04/09/2025 8:25 AM EDT Images from the original note were not included. INFECTIOUS DISEASE Progress Note Wno Dennis 1980 [id number] Date of Consult: 04/09/2025 Admission Date: 04/04/2025 [...] which prompted him to seek treatment at [facility]. He is known to Dr. [...] Sushil Dean Jr., MD; Location: [facility]; Service: Orthopedics; Laterality: Right; PLACEMENT OF WOUND VAC Right 04/07/2025 Procedure: WOUND VACUUM ASSISTED CLOSURE; Surgeon: Sushil Dean Jr., MD; Location: [facility] OR; Service: Orthopedics; Laterality: Right; History reviewed. [...] MD, 20 mg at 04/08/25 0800 heparin 22793 units/250 mL (100 units/mL) in 0.45 % [...] Units Date/Time FL C Arm During Surgery [[id number]] Resulted: 04/07/252137 Updated: 04/07/252137 Narrative: This procedure was auto-finalized with no dictation required. MRI Tibia Fibula Right With & Without Contrast [[id number]] Collected: 04/07/25 0938 Updated: 04/07/25 1001 Narrative: [...] Chitra 04/07/2025 9:58 AM EDT Workstation ID: [id number] Impression: Recurrent Right BKA stump abscess/cellulitis- this [...] mg IV daily to be supplied by [facility] 2. Home health to perform [...] from the original note were not included. [facility] Medicine Services PROGRESS NOTE Patient [...] Buenrostro 04/07/2025 9:58 AM EDT Workstation ID: [id number] I have personally reviewed the therapy plans: [...] Jason Álvarez, DO 04/08/25 * Hamilton, Larisa, [facility] - 04/08/2025 11:48 AM EDT Pharmacy [...] mg Daily 04/05/2025 -- Route: Oral heparin 04682 units/250 mL (100 units/mL) in 0.45 % [...] INFECTIOUS DISEASE Progress Note Won Dennis 1980 [id number] Date of Consult: 04/08/2025 Admission Date: 04/04/2025 [...] which prompted him to seek treatment at [facility]. He is known to Dr. [...] Sushil Dean Jr., MD; Location: [facility]; Service: Orthopedics; Laterality: Right; PLACEMENT OF WOUND VAC Right 04/07/2025 Procedure: WOUND VACUUM ASSISTED CLOSURE; Surgeon: Sushil Dean Jr., MD; Location: [facility]; Service: Orthopedics; Laterality: Right; History reviewed. [...] Oral, Q6H PRN, 500 mg at 04/06/25 8664 OR acetaminophen (TYLENOL) 160 MG/5ML oral solution [...] Jr., MD, 20 mg at 04/07/25950 heparin 05010 units/250 mL (100 units/mL) in 0.45 % [...] Units Date/Time FL C Arm During Surgery [[id number]] Resulted: 04/07/252137 Updated: 04/07/252137 Narrative: This procedure was auto-finalized with no dictation required. MRI Tibia Fibula Right With & Without Contrast [[id number]] Collected: 04/07/25 0938 Updated: 04/07/25 1001 Narrative: [...] Buenrostro 04/07/2025 9:58 AM EDT Workstation ID: [id number] Impression: 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 (Treated by ID in [place] Dr. Harris). Dr. Torres treated him with [...] from the original note were not included. [facility] Medicine Services PROGRESS NOTE Patient [...] Buenrostro 04/07/2025 9:58 AM EDT Workstation ID: [id number] I have personally reviewed the therapy plans: [...] Jason DO Preeti 04/07/25 * Larisa Hamilton, [facility] - 04/07/2025 11:56 AM EDT Pharmacy [...] start -- +[phone] [address] RN Mayr. Pt has Factor II mutation [...] INFECTIOUS DISEASE Progress Note Won Dennis 1980 [id number] Date of Consult: 04/07/2025 Admission Date: 04/04/2025 [...] which prompted him to seek treatment at [facility]. He is known to Dr. [...] MD, 20 mg at 04/06/25 0900 heparin 90724 units/250 mL (100 units/mL) in 0.45 % NaCl infusion, 18 Units/kg/hr, Intravenous, Titrated, Cherri Beatty, [facility], Last Rate: 24.1 mL/hr at 04/07/258, [...] 10 mL, 10 mL, Intravenous, Q12H, Leonora Shpeherd MD, 10 mL at 04/06/25 0900 sodium [...] With & Without Contrast - In process [[id number]] Resulted: 04/07/25828 Updated: 04/07/25828 This result has not been signed. Information might be incomplete. MRI Tibia Fibula Right With & Without Contrast [[id number]] Collected: 04/04/252256 Updated: 04/04/253 Narrative: MRI TIBIA [...] MD 04/04/2025 11:00 PM EDT Workstation ID: [id number] Impression: 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 (Treated by ID in [place] Dr. Harris). Dr. Torres treated him with [...] mg Daily 04/05/2025 -- Route: Oral heparin 59072 units/250 mL (100 units/mL) in 0.45 % [...] MD 04/07/25 06:07 EDT * Cherri Beatty [facility] - 04/06/2025 1:47 PM EDT Pharmacy [...] from the original note were not included. [facility] Medicine Services PROGRESS NOTE Patient [...] MD 04/04/2025 11:00 PM EDT Workstation ID: [id number] I have personally reviewed the therapy plans: [...] mg Daily 04/05/2025 -- Route: Oral heparin 60752 units/250 mL (100 units/mL) in 0.45 % [...] INFECTIOUS DISEASE follow up. Won Dennis 1980 [id number] Date of Consult: 04/06/2025 Admission Date: 04/04/2025 [...] which prompted him to seek treatment at [facility]. He is known to Dr. [...] MD, 20 mg at 04/06/25 0900 heparin 63031 units/250 mL (100 units/mL) in 0.45 % NaCl infusion, 18 Units/kg/hr, Intravenous, Titrated, Cherri Beatty [facility], Last Rate: 24.1 mL/hr at 04/06/25 [...] Tibia Fibula Right With & Without Contrast [[id number]] Collected: 04/04/252256 Updated: 04/04/252302 Narrative: MRI TIBIA [...] represent a small area of phlegmonous change ([id number] image 10) measuring approximately 1.6 cm which [...] MD 04/04/2025 11:00 PM EDT Workstation ID: [id number] Impression: 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 (Treated by ID in [place] Dr. Harris). Dr. Torres treated him with [...] from the original note were not included. [facility] Medicine Services PROGRESS NOTE Patient [...] MD 04/04/2025 11:00 PM EDT Workstation ID: [id number] I have personally reviewed the therapy plans: [...] from the original note were not included. [facility] Medicine Services HISTORY AND PHYSICAL [...] MD 04/04/2025 11:00 PM EDT Workstation ID: [id number] Assessment & Plan Assessment & Plan Won [...] 4FR PICC placed by Rhoda Bonner RN [facility], tip verified by 3CG see LDA. * Sushil Dean Jr., MD - 04/05/2025 8:07 AM EDTAssociated Order(s): IP CONSULT TO ORTHOPEDIC SURGERY [facility], [facility] [address] [address] Orthopedic Consult Patient: Won Dennis Date of [...] was evaluated in the emergency department in [place], was discharged with instructions for follow-up. He [...] by mouth Daily. 04/03/2025 Morning Lactobacillus-Inulin ([facility]) capsule Take 200 mg by [...] MD 04/04/2025 11:00 PM EDT Workstation ID: [id number] Assessment: Right BKA infection 44-year-old male with [...] DISEASE CONSULT/INITIAL HOSPITAL VISIT Won Dennis 1980 [id number] Date of Consult: 04/05/2025 Admission Date: 04/04/2025 [...] which prompted him to seek treatment at [facility]. He is known to Dr. [...] Leonora Shepherd MD, 40 mg at 04/04/25 5546 sennosides-docusate (PERICOLACE) 8.6-50 MG per tablet 2 [...] MD, 20 mg at 04/05/25 09 heparin 10322 units/250 mL (100 units/mL) in 0.45 % [...] Leonora Shepherd MD, 10 mg at 04/04/25 3059 Pharmacy to Dose Heparin, , Not Applicable, [...] Tibia Fibula Right With & Without Contrast [[id number]] Collected: 04/04/252256 Updated: 04/04/252302 Narrative: MRI TIBIA [...] represent a small area of phlegmonous change ([id number] image 10) measuring approximately 1.6 cm which [...] No knee joint effusion. Electronically Signed: Leigh Joens MD 04/04/2025 11:00 PM EDT Workstation ID: [id number] Impression: 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 (Treated by ID in [place] Dr. Harris). Dr. Torres treated him with [...] Jr., MD - 04/08/2025 3:51 PM EDT [facility] OPERATIVE REPORT PATIENT NAME: Won Dennis DATE OF : 1980 PREOP DIAGNOSIS: Right Right below-knee amputation infection POSTOP DIAGNOSIS: Same. PROCEDURE: Right Right 63633: Secondary closure below-knee amputation SURGEON: Sushil Dean MD OPERATIVE TEAM: Boat Garnisher: Susi Grullon RN Scrub Person: Mary Paredes Scrub Person Extra: Hortencia Toribio Other: Katt Gotti RN; Charis Neville RN ANESTHETIST: Anesthesiologist: Ulises Hoffman MD PLATE STRAIGHTENER: Stan Casillas CRNA Student Nurse [employer] Lead: Karol Albert SRNA ANESTHESIA: Choice ESTIMATED [...] CULTURE (Canceled) Sushil Dean Jr., MD 04/08/25 5414 Description: RIGHT LEG DEEP WOUND FOR CULTURE [...] Jr., MD - 04/07/2025 9:03 PM EDT [facility], [place] [address] OPERATIVE REPORT PATIENT NAME: Won Dennis DATE OF : 1980 PREOP DIAGNOSIS: Right Right below knee amputation stump infection POSTOP DIAGNOSIS: Same. PROCEDURE: Right Right 70871: Incision and drainage of surgical site infection 58096: Debridement of skin, subcutaneous tissue, muscle 94052: Wound vacuum-assisted closure SURGEON: Sushil Dean MD OPERATIVE TEAM: Boat Garnisher: Anum Sanchez RN Scrub Person: Hortencia Toribio; Gerald Ivey AIRCRAFT MAINTENANCE ENGINEER: Anesthesiologist: Luci Alonso DO ANESTHESIA: General [...] ago swellling of the area. seen at [facility] yesterday for CT and US, [...] this chart in the absence of a cloak room attendant. No orders to display RADIOLOGY: [x] Radiologist's [...] is discharging home with outpatient infusion at [facility]. He has an appointment with [facility] at 8:00 am tomorrow. They will do PICC line dressing changes. DEBRA has spoke with Dena at [facility] today multiple times to get [...] to get IV ABX at home with [facility]; however, Medicaid lapsed on 04/08. DEBRA was unaware until this morning that Medicaid has lapsed. Patient explained that he has Medicare A and B. CM spoke with KELLEE and given themhis Medicare number [id number], she sent it to Admission. DEBRA spoke with Kerri, with [facility], and explained that he had Medicare A and B. However, it will not cover home infusion. It will be $64.00 a day out of packet. Patients can go to the Infusion center at [facility], and it will cover the cost as an outpatient. He will need to go there every day for infusion. They will be able to do the patients' PICC line dressing changes and lab work. DEBRA called Dena [facility] Outpatient infusion center they can accept patient and start him. He is known for their facility. The Facility will need to run it through his insurance first. CM faxed the orders over to [facility] at [phone]. CM will follow up with them tomorrow at [facility] to make sure [...] 04/09/2025 2:51 PM EDT Continued Stay Note [facility] Patient Name: Won Dennis Today's Date: 04/09/2025 Admit Date: 04/04/2025 Plan: Home Discharge Plan Row Name 04/09/25 1311 Plan Plan Home Patient/Family in Agreement with Plan yes Plan Comments CM spoke with patient at bedside today. Wheelchair from [employer] is at bedside. Patient getting PICC line today for ABX therapy. Patient states that he has done ABX at home before and feels comfortable with doing them himself. Mr. eDnnis is thinking that he will likely discharge tomorrow. CM is following for discharge needs. Final Discharge Disposition Code 01 - home or self-care Discharge Codes No documentation. Kathy Johnson RN * Case Management/Social Work - Omar Zavala RN - 04/07/2025 11:49 AM EDT Images from the original note were not included. 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 Patient lives with and his 5 kids in [facility]. 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 He has walker, cane, shower chair, and crutches. He requested a wheelchair for home. CM will order wheelchair through [facility]. He is not current with home health services. PCP is Dr. Jordan. Insurance is [employer] [place]. Patient discharge plan is home with priavte transport. CM will follow for any discharge needs. Final Discharge Disposition Code 01 - home or self-care Continued Care and Services - Admitted Since 04/04/2025 No active coordination exists. Demographic Summary Row Name 04/07/25 1143 General Information Arrived From hospital Preferred Language [place] Functional Status Row Name 04/07/25 1143 Functional [...] Auto Differential (04/11/2025 3:40 AM EDT) [facility] WBC 7.87 3.40 - 10.80 10*3/mm3 04/11/2025 4:02 AM EDT [facility] RBC 4.70 4.14 - 5.80 10*6/mm3 04/11/2025 4:02 AM [facility] Hemoglobin 12.8(L) 13.0 - 17.7 g/dL 04/11/2025 4:02 AM [facility] Hematocrit 40.5 37.5 - 51.0 % 04/11/2025 4:02 AM [facility] MCV 86.2 79.0 - 97.0 fL 04/[facility] MCH 27.2 26.6 - 33.0 pg 04/11/2025 4:02 AM [facility] MCHC 31.6 31.5 - 35.7 g/dL 04/11/2025 4:02 AM [facility] RDW 12.9 12.3 - 15.4 % 04/11/2025 4:02 AM [facility] RDW-SD 40.5 37.0 - 54.0 fl 04/11/2025 4:02 AM [facility] MPV 9.2 6.0 - 12.0 fL 04/11/2025 4:02 AM [facility] Platelets 267 140 - 450 10*3/mm3 04/11/2025 4:02 AM [facility] Neutrophil % 59.5 42.7 - 76.0 % 04/11/2025 4:02 AM [facility] Lymphocyte % 26.3 19.6 - 45.3 % 04/11/2025 4:02 AM [facility] Monocyte % 9.3 5.0 - 12.0 % 04/11/2025 4:02 AM [facility] Eosinophil % 4.1 0.3 - 6.2 % 04/11/2025 [facility] Basophil % 0.4 0.0 - 1.5 % 04/11/2025 4:02 [facility] Immature Grans % 0.4 0.0 - 0.5 % 04/11/2025 4:02 AM [facility] Neutrophils, Absolute 4.69 1.70 - 7.00 10*3/mm3 04/11/2025 4:02 AM EDT [facility] Lymphocytes, Absolute 2.07 0.70 - 3.10 10*3/mm3 04/11/2025 4:02 AM EDT [facility] Monocytes, Absolute 0.73 0.10 - 0.90 10*3/mm3 04/11/2025 4:02 AM EDT [facility] Eosinophils, Absolute 0.32 0.00 - 0.40 10*3/mm3 04/11/2025 4:02 AM EDT [facility] Basophils, Absolute 0.03 0.00 - 0.20 10*3/mm3 04/11/2025 4:02 AM EDT [facility] Immature Grans, Absolute 0.03 0.00 - 0.05 10*3/mm3 04/11/2025 4:02 AM EDT [facility] nRBC 0.0 0.0 - 0.2 /100 WBC 04/11/2025 4:02 AM EDT [facility] Blood Venipuncture / Unknown 04/11/2025 3:40 AM EDT 04/11/2025 3:59 AM EDT us Sushil Dean Jr., MD LAB BLOOD ORDERABLES Fi nal Result [facility]
[address] [place] [address], * (ABNORMAL) Comprehensive Metabolic Panel (04/11/2025 3:40 AM EDT) [facility] Signature Glucose 108(H) 65 - 99 mg/dL 04/11/2025 4:19 AM EDT [facility] BUN 12.5 6.0 - 20.0 mg/dL 04/11/2025 4:19 AM EDT [facility] Creatinine 0.68(L) 0.76 - 1.27 mg/dL 04/11/2025 4:19 AM [facility] Sodium 140 136 - 145 mmol/L 04/11/2025 4:19 AM [facility] Potassium 3.8 3.5 - 5.2 mmol/L 04/11/2025 4:19 AM [facility] Chloride 105 98 - 107 mmol/L 04/11/2025 4:19 AM [facility] CO2 28.2 22.0 - 29.0 mmol/L 04/11/2025 4:19 AM [facility] Calcium 8.2(L) 8.6 - 10.5 mg/dL 04/11/2025 4:19 AM [facility] Total Protein 6.1 6.0 - 8.5 g/dL 04/11/2025 4:19 AM [facility] Albumin 3.1(L) 3.5 - 5.2 g/dL 04/11/2025 4:19 AM [facility] ALT (SGPT) 52(H) 1 - 41 U/L 04/11/2025 4:19 AM [facility] AST (SGOT) 40 1 - 40 U/L 04/11/2025 4:19 AM [facility] Alkaline Phosphatase 99 39 - 117 U/L 04/11/2025 4:19 AM [facility] Total Bilirubin 0.2 0.0 - 1.2 mg/dL 04/11/2025 4:19 AM [facility] Globulin 3.0 gm/dL 04/11/2025 4:19 AM [facility] Comment:Calculated Result A/G Ratio 1.0 g/dL 04/11/2025 4:19 AM [facility] BUN/Creatinine Ratio 18.4 7.0 - 25.0 04/11/2025 4:19 AM [facility] Anion Gap 6.8 5.0 - 15.0 mmol/L 04/11/2025 4:19 AM [facility] eGFR 117.5 >60.0 mL/min/1.7 3 04/11/2025 4:19 AM EDT [facility] Blood Venipuncture / Unknown 04/11/2025 [...] include race as a factor Rosario [place] STRAIGHTEDGE MAN LAB BLOOD ORDERABLES Final Result [facility]
[address] [place] [address], * (ABNORMAL) CBC Auto Differential (04/10/2025 3:46 AM EDT) WBC 9.60 3.40 - 10.80 10*3/mm3 04/10/2025 3:56 AM EDT [facility] RBC 4.67 4.14 - 5.80 10*6/mm3 04/10/2025 3:56 AM EDT [facility] Hemoglobin 12.9(L) 13.0 - 17.7 g/dL 04/10/2025 3:56 AM EDT [facility] Hematocrit 40.1 37.5 - 51.0 % 04/10/2025 3:56 AM EDT [facility] MCV 85.9 79.0 - 97.0 fL 04/10/2025 3:56 AM EDT [facility] MCH 27.6 26.6 - 33.0 pg 04/10/2025 3:56 AM EDT [facility] MCHC 32.2 31.5 - 35.7 g/dL 04/10/2025 3:56 [facility] RDW 12.9 12.3 - 15.4 % 04/10/2025 3:56 AM [facility] RDW-SD 40.5 37.0 - 54.0 fl 04/10/2025 3:56 AM [facility] MPV 9.5 6.0 - 12.0 fL 04/10/2025 3:56 AM EDT [facility] Platelets 227 140 - 450 10*3/mm3 04/10/2025 3:56 AM [facility] Neutrophil % 59.1 42.7 - 76.0 % 04/10/2025 3:56 AM [facility] Lymphocyte % 29.0 19.6 - 45.3 % 04/10/2025 3:56 AM [facility] Monocyte % 8.1 5.0 - 12.0 % 04/10/2025 3:56 AM [facility] Eosinophil % 3.2 0.3 - 6.2 % 04/10/2025 3:56 AM [facility] Basophil % 0.4 0.0 - 1.5 % 04/10/2025 3:56 AM [facility] Immature Grans % 0.2 0.0 - 0.5 % 04/10/2025 3:56 AM [facility] Neutrophils, Absolute 5.67 1.70 - 7.00 10*3/mm3 04/10/2025 3:56 AM [facility] Lymphocytes, Absolute 2.78 0.70 - 3.10 10*3/mm3 04/10/2025 3:56 AM [facility] Monocytes, Absolute 0.78 0.10 - 0.90 10*3/mm3 04/10/2025 3:56 AM [facility] Eosinophils, Absolute 0.31 0.00 - 0.40 10*3/mm3 04/10/2025 3:56 AM [facility] Basophils, Absolute 0.04 0.00 - 0.20 10*3/mm3 04/10/2025 3:56 AM EDT [facility] Immature Grans, Absolute 0.02 0.00 - 0.05 10*3/mm3 04/10/2025 3:56 AM EDT [facility] nRBC 0.0 0.0 - 0.2 /100 WBC 04/10/2025 3:56 AM EDT [facility] Blood Venipuncture / Unknown 04/10/2025 3:46 AM EDT 04/10/2025 3:53 AM EDT us Jason Álvarez DO LAB BLOOD ORDERABLES Final Resul t [facility]
[address] [place] [address], * (ABNORMAL) Basic Metabolic Panel (04/10/2025 3:46 AM EDT) Glucose 125(H) 65 - 99 mg/dL 04/10/2025 4:20 AM EDT [facility] BUN 15.9 6.0 - 20.0 mg/dL 04/10/2025 4:20 AM EDT [facility] Creatinine 0.77 0.76 - 1.27 mg/dL 04/10/2025 4:20 AM EDT [facility] Sodium 137 136 - 145 mmol/L 04/10/2025 4:20 AM EDT [facility] Potassium 3.9 3.5 - 5.2 mmol/L 04/10/2025 4:20 AM EDT [facility] Chloride 102 98 - 107 mmol/L 04/10/2025 4:20 AM EDT [facility] CO2 26.9 22.0 - 29.0 mmol/L 04/10/2025 4:20 AM EDT [facility] Calcium 7.9(L) 8.6 - 10.5 mg/dL 04/10/2025 4:20 AM EDT [facility] BUN/Creatinine Ratio 20.6 7.0 - 25.0 04/10/2025 4:20 AM EDT [facility] Anion Gap 8.1 5.0 - 15.0 mmol/L 04/10/2025 4:20 AM EDT [facility] eGFR 113.2 >60.0 mL/min/1.7 3 04/10/2025 4:20 AM EDT [facility] Blood Venipuncture / Unknown 04/10/2025 3:46 AM EDT 04/10/2025 3:52 AM EDT Narrative [facility] - 04/10/2025 4:20 AM EDT [...] LAB BLOOD ORDERABLES Final Resul t [facility]
[address] [place] [address], * Heparin Anti-Xa (04/10/2025 3:46 AM EDT) Heparin Anti-Xa (UFH) 0.35 0.30 - 0.70 IU/ml 04/10/2025 4:23 AM EDT [facility] Blood Venipuncture / Unknown 04/10/2025 3:46 AM EDT 04/10/2025 3:53 AM EDT Larisa Hamilton [facility] LAB BLOOD ORDERABLES Final R esult [facility]
[address] [place] [address], * Heparin Anti-Xa (04/09/2025 10:05 AM EDT) Pathologist [facility] Heparin Anti-Xa (UFH) 0.36 0.30 - 0.70 IU/ml 04/09/2025 11:12 AM EDT [facility] Blood Venipuncture / Unknown 04/09/2025 10:05 AM EDT 04/09/2025 10:47 AM EDT Larisa Hamilton [facility] LAB BLOOD ORDERABLES Final R esult [facility]
[address] [place] [address], * (ABNORMAL) CBC Auto Differential (04/09/2025 4:18 AM EDT) Pathologist [facility] WBC 11.00(H) 3.40 - 10.80 10*3/mm3 04/09/2025 4:50 AM EDT [facility] RBC 4.70 4.14 - 5.80 10*6/mm3 04/09/2025 4:50 AM EDT [facility] Hemoglobin 13.0 13.0 - 17.7 g/dL 04/09/2025 4:50 AM EDT [facility] Hematocrit 40.4 37.5 - 51.0 % 04/09/2025 4:50 AM EDT [facility] MCV 86.0 79.0 - 97.0 fL 04/09/2025 4:50 AM EDT [facility] MCH 27.7 26.6 - 33.0 pg 04/09/2025 4:50 AM EDT [facility] MCHC 32.2 31.5 - 35.7 g/dL 04/09/2025 4:50 AM EDT [facility] RDW 12.8 12.3 - 15.4 % 04/09/2025 4:50 AM [facility] RDW-SD 39.9 37.0 - 54.0 fl 04/09/2025 4:50 AM [facility] MPV 10.0 6.0 - 12.0 fL 04/09/2025 4:50 AM [facility] Platelets 211 140 - 450 10*3/mm3 04/09/2025 4:50 AM [facility] Neutrophil % 74.8 42.7 - 76.0 % 04/09/2025 4:50 AM [facility] Lymphocyte % 15.4(L) 19.6 - 45.3 % 04/09/2025 4:50 AM [facility] Monocyte % 8.5 5.0 - 12.0 % 04/09/2025 4:50 AM [facility] Eosinophil % 0.6 0.3 - 6.2 % 04/09/2025 4:50 AM [facility] Basophil % 0.4 0.0 - 1.5 % 04/09/2025 4:50 AM [facility] Immature Grans % 0.3 0.0 - 0.5 % 04/09/2025 4:50 AM [facility] Neutrophils, Absolute 8.23(H) 1.70 - 7.00 10*3/mm3 04/09/2025 4:50 AM [facility] Lymphocytes, Absolute 1.69 0.70 - 3.10 10*3/mm3 04/09/2025 4:50 AM [facility] Monocytes, Absolute 0.94(H) 0.10 - 0.90 10*3/mm3 04/09/2025 4:50 AM [facility] Eosinophils, Absolute 0.07 0.00 - 0.40 10*3/mm3 04/09/2025 4:50 AM [facility] Basophils, Absolute 0.04 0.00 - 0.20 10*3/mm3 04/09/2025 4:50 AM [facility] Immature Grans, Absolute 0.03 0.00 - 0.05 10*3/mm3 04/09/2025 4:50 AM EDT [facility] nRBC 0.0 0.0 - 0.2 /100 WBC 04/09/2025 4:50 AM EDT [facility] Blood Venipuncture / Unknown 04/09/2025 4:18 AM EDT 04/09/2025 4:31 AM EDT Sushil Dean Jr., MD LAB BLOOD ORDERABLES Fi nal Result [facility]
[address] [place] [address], * Heparin Anti-Xa (04/09/2025 4:18 AM EDT) Heparin Anti-Xa (UFH) 0.41 0.30 - 0.70 IU/ml 04/09/2025 4:53 AM EDT [facility] Blood Venipuncture / Unknown 04/09/2025 4:18 AM EDT 04/09/2025 4:31 AM EDT Una LundbergD LAB BLOOD ORDERABLES Final R esult [facility]
[address] [place] [address], * (ABNORMAL) Basic Metabolic Panel (04/09/2025 4:18 AM EDT) Glucose 147(H) 65 - 99 mg/dL 04/09/2025 5:33 AM EDT [facility] BUN 23.0(H) 6.0 - 20.0 mg/dL 04/09/2025 5:33 AM EDT [facility] Creatinine 1.15 0.76 - 1.27 mg/dL 04/09/2025 5:33 AM EDT [facility] Sodium 135(L) 136 - 145 mmol/L 04/09/2025 5:33 AM EDT [facility] Potassium 4.2 3.5 - 5.2 mmol/L 04/09/2025 5:33 AM EDT [facility] Chloride 100 98 - 107 mmol/L 04/09/2025 5:33 AM EDT [facility] CO2 26.0 22.0 - 29.0 mmol/L 04/09/2025 5:33 AM EDT [facility] Calcium 8.2(L) 8.6 - 10.5 mg/dL 04/09/2025 5:33 AM EDT [facility] BUN/Creatinine Ratio 20.0 7.0 - 25.0 04/09/2025 5:33 AM EDT [facility] Anion Gap 9.0 5.0 - 15.0 mmol/L 04/09/2025 5:33 AM EDT [facility] eGFR 80.5 >60.0 mL/min/1.7 3 04/09/2025 5:33 AM EDT [facility] Blood Venipuncture / Unknown 04/09/2025 [...] LAB BLOOD ORDERABLES Fi nal Result [facility]
[address] [place] [address], * Wound Culture - Swab, Leg, Right (04/08/2025 3:40 PM EDT) Wound Culture No growth at 3 days ALIZA 04/11/2025 10:40 AM EDT [facility] Gram Stain Few (2+) WBCs seen 04/11/2025 10:40 AM EDT [facility] Gram Stain No organisms seen 04/11/2025 10:40 AM EDT [facility] Swab Structure of right lower limb / Unknown 04/08/2025 3:40 PM EDT 04/08/2025 8:05 PM EDT Sushil Dean Jr., MD MICROBIOLOGY - GENERAL ORDERABLES Final Result Performing Organization Address City/[facility]/ZIP Co de Phone Number [facility]
[address] [place] [address], [facility]
[address] [place] [address], * Anaerobic Culture - Swab, Leg, Right (04/08/2025 3:40 PM EDT) Pathologist [facility] Anaerobic Culture No anaerobes isolated at 5 days ALIZA 04/13/2025 7:24 AM EDT [facility] Swab Structure of right lower limb / Unknown 04/08/2025 3:40 PM EDT 04/08/2025 8:05 PM EDT Sushil Dean Jr., MD MICROBIOLOGY - GENERAL ORDERABLES Final Result [facility]
[address] [place] [address], * Scan Slide (04/08/2025 8:41 AM EDT) RBC Morphology Normal Normal 04/08/2025 11:02 AM EDT [facility] WBC Morphology Normal Normal 04/08/2025 11:02 AM EDT [facility] Platelet Estimate Adequate Normal 04/08/2025 11:02 AM EDT [facility] Clumped Platelets Present None Seen 04/08/2025 11:02 AM EDT [facility] Blood Venipuncture / Unknown 04/08/2025 8:41 AM EDT 04/08/2025 9:10 AM EDT Una Minda PharmD LAB BLOOD ORDERABLES Final R esult [facility]
[address] [place] [address], * (ABNORMAL) CBC Auto Differential (04/08/2025 8:41 AM EDT) WBC 10.07 3.40 - 10.80 10*3/mm3 04/08/2025 11:02 AM EDT [facility] RBC 5.01 4.14 - 5.80 10*6/mm3 04/08/2025 11:02 AM EDT [facility] Hemoglobin 14.0 13.0 - 17.7 g/dL 04/08/2025 11:02 AM EDT [facility] Hematocrit 42.7 37.5 - 51.0 % 04/08/2025 11:02 AM EDT [facility] MCV 85.2 79.0 - 97.0 fL 04/08/2025 11:02 AM EDT [facility] MCH 27.9 26.6 - 33.0 pg 04/08/2025 11:02 AM EDT [facility] MCHC 32.8 31.5 - 35.7 g/dL 04/08/2025 11:02 AM EDT [facility] RDW 12.6 12.3 - 15.4 % 04/08/2025 11:02 AM EDT [facility] RDW-SD 38.9 37.0 - 54.0 fl 04/08/2025 11:02 AM [facility] MPV 11.0 6.0 - 12.0 fL 04/08/2025 11:02 AM [facility] Platelets 118(L) 140 - 450 10*3/mm3 04/08/2025 11:02 AM [facility] Neutrophil % 85.1(H) 42.7 - 76.0 % 04/08/2025 11:02 AM [facility] Lymphocyte % 9.3(L) 19.6 - 45.3 % 04/08/2025 11:02 AM [facility] Monocyte % 4.6(L) 5.0 - 12.0 % 04/08/2025 11:02 AM [facility] Eosinophil % 0.3 0.3 - 6.2 % 04/08/2025 11:02 AM [facility] Basophil % 0.2 0.0 - 1.5 % 04/08/2025 11:02 AM [facility] Immature Grans % 0.5 0.0 - 0.5 % 04/08/2025 11:02 AM [facility] Neutrophils, Absolute 8.57(H) 1.70 - 7.00 10*3/mm3 04/08/2025 11:02 AM [facility] Lymphocytes, Absolute 0.94 0.70 - 3.10 10*3/mm3 04/08/2025 11:02 AM [facility] Monocytes, Absolute 0.46 0.10 - 0.90 10*3/mm3 04/08/2025 11:02 AM [facility] Eosinophils, Absolute 0.03 0.00 - 0.40 10*3/mm3 04/08/2025 11:02 AM [facility] Basophils, Absolute 0.02 0.00 - 0.20 10*3/mm3 04/08/2025 11:02 AM [facility] Immature Grans, Absolute 0.05 0.00 - 0.05 10*3/mm3 04/08/2025 11:02 AM EDT [facility] nRBC 0.0 0.0 - 0.2 /100 WBC 04/08/2025 11:02 AM EDT [facility] Blood Venipuncture / Unknown 04/08/2025 8:41 AM EDT 04/08/2025 9:10 AM EDT Una Perla PharmD LAB BLOOD ORDERABLES Final R esult [facility]
[address] [place] [address], * (ABNORMAL) Basic Metabolic Panel (04/08/2025 8:41 AM EDT) Glucose 125(H) 65 - 99 mg/dL 04/08/2025 9:51 AM EDT [facility] BUN 13.2 6.0 - 20.0 mg/dL 04/08/2025 9:51 AM EDT [facility] Creatinine 0.69(L) 0.76 - 1.27 mg/dL 04/08/2025 9:51 AM EDT [facility] Sodium 136 136 - 145 mmol/L 04/08/2025 9:51 AM EDT [facility] Potassium 4.6 3.5 - 5.2 mmol/L 04/08/2025 9:51 AM EDT [facility] Chloride 102 98 - 107 mmol/L 04/08/2025 9:51 AM EDT [facility] CO2 23.5 22.0 - 29.0 mmol/L 04/08/2025 9:51 AM EDT [facility] Calcium 8.4(L) 8.6 - 10.5 mg/dL 04/08/2025 9:51 AM EDT [facility] BUN/Creatinine Ratio 19.1 7.0 - 25.0 04/08/2025 9:51 AM EDT [facility] Anion Gap 10.5 5.0 - 15.0 mmol/L 04/08/2025 9:51 AM EDT [facility] eGFR 117.0 >60.0 mL/min/1.7 3 04/08/2025 9:51 AM EDT [facility] Blood Venipuncture / Unknown 04/08/2025 8:41 AM EDT 04/08/2025 9:09 AM EDT Narrative [facility] - 04/08/2025 9:51 AM EDT [...] ORDERABLES Fi nal Result Performing Organization Address City/[facility]/ZIP Co de Phone Number [facility]
[address] [place] [address], * Heparin Anti-Xa (04/08/2025 8:41 AM EDT) Heparin Anti-Xa (UFH) 0.33 0.30 - 0.70 IU/ml 04/08/2025 9:40 AM EDT [facility] Blood Venipuncture / Unknown 04/08/2025 8:41 AM EDT 04/08/2025 9:10 AM EDT us Sushil Dean Jr., MD LAB BLOOD ORDERABLES Fi nal Result [facility]
[address] [place] [address], * FL C Arm During Surgery (04/07/2025 9:32 PM EDT) Narrative SYSTEMGENERATED, DOCUMENTATION - 04/07/2025 9:38 PM EDT This procedure was auto-finalized with no dictation required. us Sushil Dean Jr., MD IMG FLUOROSCOPY ORDERAB LES Final Result * Wound Culture - Swab, Leg, Right (04/07/2025 9:14 PM EDT) Wound Culture No growth at 3 days ALIZA 04/11/2025 10:40 AM EDT [facility] Gram Stain Occasional WBCs seen 04/11/2025 10:40 AM EDT [facility] Gram Stain No organisms seen 04/11/2025 10:40 AM EDT [facility] Swab Structure of right lower limb / Unknown Collection / Unknown 04/07/2025 9:14 PM EDT 04/08/2025 4:36 AM EDT us Sushil Dean Jr., MD MICROBIOLOGY - GENERAL ORDERABLES Final Result Performing Organization Address [facility]/ZIP Co de Phone Number [facility]
[address] [place] [address], [facility]
[address] [place] [address], * Anaerobic Culture - Swab, Leg, Right (04/07/2025 9:14 PM EDT) Anaerobic Culture No anaerobes isolated at 5 days ALIZA 04/13/2025 7:21 AM EDT [facility] Swab Structure of right lower limb / Unknown Collection / Unknown 04/07/2025 9:14 PM EDT 04/08/2025 4:36 AM EDT us Sushil Dean Jr., MD MICROBIOLOGY - GENERAL ORDERABLES Final Result [facility]
[address] [place] [address], * Anaerobic Culture - Tissue, Leg (04/07/2025 9:13 PM EDT) Pathologist [facility] Anaerobic Culture No anaerobes isolated at 5 days ALIZA 04/13/2025 7:21 AM EDT [facility] Tissue Lower limb structure / Unknown Collection / Unknown 04/07/2025 9:13 PM EDT 04/08/2025 4:54 AM EDT Jason Álvarez DO MICROBIOLOGY - GENERAL ORDERABLE S Final Result [facility]
[address] [place] [address], * Tissue / Bone Culture - Tissue, Leg, Right (04/07/2025 9:13 PM EDT) [facility] Tissue Culture No growth at 3 days ALIZA 04/11/2025 10:36 AM EDT [facility] Gram Stain Rare (1+) WBCs seen 04/11/2025 10:36 AM EDT [facility] Gram Stain No organisms seen 04/11/2025 10:36 AM EDT [facility] Tissue Structure of right lower limb / Unknown 04/07/2025 9:13 PM EDT 04/08/2025 4:54 AM EDT Sushil Dean Jr., MD MICROBIOLOGY - GENERAL ORDERABLES Final Result [facility]
[address] [place] [address], [facility]
[address] [place] [address], * (ABNORMAL) Wound Culture - Swab, Leg, Right (04/07/2025 9:07 PM EDT) Pathologist [facility] Wound Culture Light growth (2+) Staphylococcus aureus, MRSA(A) ALIZA 04/10/2025 10:38 AM EDT [facility] Comment: Methicillin resistant Staphylococcus aureus, Patient may be an isolation risk. Gram Stain Few (2+) WBCs seen 04/10/2025 10:38 AM EDT [facility] Gram Stain No organisms seen 10:38 AM EDT [facility] Swab Structure of right lower [...] MD MICROBIOLOGY - GENERAL ORDERABLES Final Result [facility]
[address] [place] [address], [place] [phone] [facility]
[address] [place] [address], [place] [phone] * Anaerobic Culture - Swab, Leg, Right (04/07/2025 9:07 PM EDT) Anaerobic Culture No anaerobes isolated at 5 days ALIZA 04/13/2025 7:21 AM EDT [facility] Swab Structure of right lower limb / Unknown Collection / Unknown 04/07/2025 9:07 PM EDT 04/08/2025 4:36 AM EDT us Sushil Dean Jr., MD MICROBIOLOGY - GENERAL ORDERABLES Final Result [facility]
[address] [place] [address], * Heparin Anti-Xa (04/07/2025 9:10 AM EDT) [facility] Heparin Anti-Xa (UFH) 0.30 0.30 - 0.70 IU/ml 04/07/2025 10:12 AM EDT [facility] Blood Venipuncture / Unknown 04/07/2025 9:10 AM EDT 04/07/2025 9:38 AM EDT Una Perla PharmD LAB BLOOD ORDERABLES Final R esult [facility]
[address] [place] [address], * (ABNORMAL) CBC Auto Differential (04/07/2025 9:10 AM EDT) [facility] WBC 8.63 3.40 - 10.80 10*3/mm3 04/07/2025 9:50 AM EDT [facility] RBC 5.23 4.14 - 5.80 10*6/mm3 04/07/2025 9:50 AM EDT [facility] Hemoglobin 14.7 13.0 - 17.7 g/dL 04/07/2025 9:50 AM EDT [facility] Hematocrit 44.8 37.5 - 51.0 % 04/07/2025 9:50 AM EDT [facility] MCV 85.7 79.0 - 97.0 fL 04/07/2025 9:50 AM EDT [facility] MCH 28.1 26.6 - 33.0 pg 04/07/2025 9:50 AM EDT [facility] MCHC 32.8 31.5 - 35.7 g/dL 04/07/2025 9:50 AM EDT [facility] RDW 12.8 12.3 - 15.4 % 04/07/2025 9:50 AM [facility] RDW-SD 39.9 37.0 - 54.0 fl 04/07/2025 9:50 AM [facility] MPV 10.8 6.0 - 12.0 fL 04/07/2025 9:50 AM [facility] Platelets 149 140 - 450 10*3/mm3 04/07/2025 9:50 AM [facility] Neutrophil % 66.7 42.7 - 76.0 % 04/07/2025 9:50 AM [facility] Lymphocyte % 20.5 19.6 - 45.3 % 04/07/2025 9:50 AM [facility] Monocyte % 9.8 5.0 - 12.0 % 04/07/2025 9:50 AM [facility] Eosinophil % 2.1 0.3 - 6.2 % 04/07/2025 9:50 AM [facility] Basophil % 0.3 0.0 - 1.5 % 04/07/2025 9:50 AM [facility] Immature Grans % 0.6(H) 0.0 - 0.5 % 04/07/2025 9:50 AM [facility] Neutrophils, Absolute 5.75 1.70 - 7.00 10*3/mm3 04/07/2025 9:50 AM [facility] Lymphocytes, Absolute 1.77 0.70 - 3.10 10*3/mm3 04/07/2025 9:50 AM [facility] Monocytes, Absolute 0.85 0.10 - 0.90 10*3/mm3 04/07/2025 9:50 AM [facility] Eosinophils, Absolute 0.18 0.00 - 0.40 10*3/mm3 04/07/2025 9:50 AM [facility] Basophils, Absolute 0.03 0.00 - 0.20 10*3/mm3 04/07/2025 9:50 AM [facility] Immature Grans, Absolute 0.05 0.00 - 0.05 10*3/mm3 04/07/2025 9:50 AM EDT [facility] nRBC 0.0 0.0 - 0.2 /100 WBC 04/07/2025 9:50 AM EDT [facility] Blood Venipuncture / Unknown 04/07/2025 9:10 AM EDT 04/07/2025 9:38 AM EDT Jasonalfonso Álvarez LAB BLOOD ORDERABLES Final Resul t [facility]
[address] [place] [address], * (ABNORMAL) Basic Metabolic Panel (04/07/2025 9:10 AM EDT) Glucose 112(H) 65 - 99 mg/dL 04/07/2025 10:19 AM EDT [facility] BUN 13.1 6.0 - 20.0 mg/dL 04/07/2025 10:19 AM EDT [facility] Creatinine 0.77 0.76 - 1.27 mg/dL 04/07/2025 10:19 AM EDT [facility] Sodium 139 136 - 145 mmol/L 04/07/2025 10:19 AM EDT [facility] Potassium 4.2 3.5 - 5.2 mmol/L 04/07/2025 10:19 AM EDT [facility] Comment:Specimen hemolyzed. Result may be falsely elevated. Chloride 105 98 - 107 mmol/L 04/07/2025 10:19 AM EDT [facility] CO2 24.8 22.0 - 29.0 mmol/L 04/07/2025 10:19 AM EDT [facility] Calcium 8.6 8.6 - 10.5 mg/dL 04/07/2025 10:19 AM EDT [facility] BUN/Creatinine Ratio 17.0 7.0 - 25.0 04/07/2025 10:19 AM EDT [facility] Anion Gap 9.2 5.0 - 15.0 mmol/L 04/07/2025 10:19 AM EDT [facility] eGFR 113.2 >60.0 mL/min/1.7 3 04/07/2025 10:19 AM EDT [facility] Blood Venipuncture / Unknown 04/07/2025 9:10 AM EDT 04/07/2025 9:38 AM EDT Narrative [facility] - 04/07/2025 10:19 AM EDT [...] LAB BLOOD ORDERABLES Final Resul t [facility]
[address] [place] [address], * MRI Tibia Fibula Right With & [...] [place] 04/07/2025 9:58 AM EDT Workstation ID: [id number] Narrative 04/07/2025 9:58 AM EDT MRI TIBIA [...] [place] 04/07/2025 9:58 AM EDT Workstation ID: [id number] Sushil Dean Jr., MD IM MRI ORDERABLES [facility] l Result * Heparin Anti-Xa (04/07/2025 1:42 AM EDT) [facility] Heparin Anti-Xa (UFH) 0.38 0.30 - 0.70 IU/ml 04/07/2025 2:14 AM EDT [facility] Blood Venipuncture / Unknown 04/07/2025 1:42 AM EDT 04/07/2025 1:54 AM EDT Chelsie Turpin [facility] LAB BLOOD ORDERABLES Final R esult [facility]
[address] [place] [address], * Heparin Anti-Xa (04/06/2025 7:16 PM EDT) [facility] Heparin Anti-Xa (UFH) 0.33 0.30 - 0.70 IU/ml 04/06/2025 7:50 PM EDT [facility] Blood Venipuncture / Unknown 04/06/2025 7:16 PM EDT 04/06/2025 7:35 PM EDT Cherri Beatty RP LAB BLOOD ORDERABLES Final Res ult Performing Organization Address City/[facility]/ZIP Co de Phone Number [facility]
[address] [place] [address], * Potassium (04/06/2025 7:16 PM EDT) Potassium 4.0 3.5 - 5.2 mmol/L 04/06/2025 7:53 PM EDT [facility] Blood Venipuncture / Unknown 04/06/2025 7:16 PM EDT 04/06/2025 7:35 PM EDT Jason Álvarez DO LAB BLOOD ORDERABLES Final Resul t Performing Organization Address [facility] de Phone Number [facility]
[address] [place] [address], * (ABNORMAL) Heparin Anti-Xa (04/06/2025 12:36 PM EDT) Heparin Anti-Xa (UFH) 0.24(L) 0.30 - 0.70 IU/ml 04/06/2025 1:23 PM EDT [facility] Blood Venipuncture / Unknown 04/06/2025 12:36 PM EDT 04/06/2025 1:07 PM EDT Una LundbergD LAB BLOOD ORDERABLES Final R esult Performing Organization Address [facility] Co de Phone Number [facility]
[address] [place] [address], * (ABNORMAL) Heparin Anti-Xa (04/06/2025 3:42 AM EDT) Heparin Anti-Xa (UFH) 0.25(L) 0.30 - 0.70 IU/ml 04/06/2025 5:30 AM EDT [facility] Blood Venipuncture / Unknown 04/06/2025 3:42 AM EDT 04/06/2025 4:59 AM EDT Chelsie Turpin [facility] LAB BLOOD ORDERABLES Final R esult [facility]
[address] [place] [address], * (ABNORMAL) Basic Metabolic Panel (04/06/2025 3:42 AM EDT) Pathologist [facility] Glucose 94 65 - 99 mg/dL 04/06/2025 5:59 AM EDT [facility] BUN 12.8 6.0 - 20.0 mg/dL 04/06/2025 5:59 AM EDT [facility] Creatinine 0.80 0.76 - 1.27 mg/dL 04/06/2025 5:59 AM EDT [facility] Sodium 138 136 - 145 mmol/L 04/06/2025 5:59 AM EDT [facility] Potassium 3.6 3.5 - 5.2 mmol/L 04/06/2025 5:59 AM EDT [facility] Chloride 103 98 - 107 mmol/L 04/06/2025 5:59 AM EDT [facility] CO2 24.2 22.0 - 29.0 mmol/L 04/06/2025 5:59 AM EDT [facility] Calcium 8.0(L) 8.6 - 10.5 mg/dL 04/06/2025 5:59 AM EDT [facility] BUN/Creatinine Ratio 16.0 7.0 - 25.0 04/06/2025 5:59 AM EDT [facility] Anion Gap 10.8 5.0 - 15.0 mmol/L 04/06/2025 5:59 AM EDT [facility] eGFR 111.9 >60.0 mL/min/1.7 3 04/06/2025 5:59 AM EDT [facility] Blood Venipuncture / Unknown 04/06/2025 [...] LAB BLOOD ORDERABLES Final Resul t [facility]
[address] [place] [address], * (ABNORMAL) CBC Auto Differential (04/06/2025 3:41 AM EDT) WBC 10.86(H) 3.40 - 10.80 10*3/mm3 04/06/2025 5:04 AM EDT [facility] RBC 5.08 4.14 - 5.80 10*6/mm3 04/06/2025 5:04 AM EDT [facility] Hemoglobin 13.9 13.0 - 17.7 g/dL 04/06/2025 5:04 AM EDT [facility] Hematocrit 43.7 37.5 - 51.0 % 04/06/2025 5:04 AM EDT [facility] MCV 86.0 79.0 - 97.0 fL 04/06/2025 5:04 AM [facility] MCH 27.4 26.6 - 33.0 pg 04/06/2025 5:04 AM [facility] MCHC 31.8 31.5 - 35.7 g/dL 04/06/2025 5:04 AM [facility] RDW 12.8 12.3 - 15.4 % 04/06/2025 5:04 AM [facility] RDW-SD 40.0 37.0 - 54.0 fl 04/06/2025 5:04 AM [facility] MPV 11.7 6.0 - 12.0 fL 04/06/2025 5:04 AM [facility] Platelets 115(L) 140 - 450 10*3/mm3 04/06/2025 5:04 AM [facility] Neutrophil % 65.3 42.7 - 76.0 % 04/06/2025 5:04 AM [facility] Lymphocyte % 20.5 19.6 - 45.3 % 04/06/2025 5:04 AM [facility] Monocyte % 11.8 5.0 - 12.0 % 04/06/2025 5:04 AM [facility] Eosinophil % 1.8 0.3 - 6.2 % 04/06/2025 5:04 AM [facility] Basophil % 0.3 0.0 - 1.5 % 04/06/2025 5:04 AM [facility] Immature Grans % 0.3 0.0 - 0.5 % 04/06/2025 5:04 AM [facility] Neutrophils, Absolute 7.09(H) 1.70 - 7.00 10*3/mm3 04/06/2025 5:04 AM [facility] Lymphocytes, Absolute 2.23 0.70 - 3.10 10*3/mm3 04/06/2025 5:04 AM [facility] Monocytes, Absolute 1.28(H) 0.10 - 0.90 10*3/mm3 04/06/2025 5:04 AM EDT [facility] Eosinophils, Absolute 0.20 0.00 - 0.40 10*3/mm3 04/06/2025 5:04 AM EDT [facility] Basophils, Absolute 0.03 0.00 - 0.20 10*3/mm3 04/06/2025 5:04 AM EDT [facility] Immature Grans, Absolute 0.03 0.00 - 0.05 10*3/mm3 04/06/2025 5:04 AM EDT [facility] nRBC 0.0 0.0 - 0.2 /100 WBC 04/06/2025 5:04 AM EDT [facility] Blood Venipuncture / Unknown 04/06/2025 3:41 AM EDT 04/06/2025 4:58 AM EDT Jason Álvarez DO LAB BLOOD ORDERABLES Final Resul t Performing Organization Address [facility]/ZIP Co de Phone Number [facility]
[address] [place] [address], [place] [phone] * Heparin Anti-Xa (04/05/2025 8:43 PM EDT) [facility] Heparin Anti-Xa (UFH) 0.38 0.30 - 0.70 IU/ml 04/05/2025 9:09 PM EDT [facility] Blood Venipuncture / Unknown 04/05/2025 8:43 PM EDT 04/05/2025 8:55 PM EDT us Cherri Beatty [facility] LAB BLOOD ORDERABLES Final Res ult Performing Organization Address [facility]/ZIP Co de Phone Number [facility]
[address] [place] [address], [place] [phone] * CK (04/05/2025 12:15 PM EDT) Pathologist [facility] Creatine Kinase 140 20 - 200 U/L 04/05/2025 1:31 PM EDT [facility] Blood Venipuncture / Unknown 04/05/2025 12:15 PM EDT 04/05/2025 1:03 PM EDT Carlton Mead MD LAB BLOOD ORDERABLES Final R esult Performing Organization Address [facility]/ZIP Co de Phone Number [facility]
[address] [place] [address], * (ABNORMAL) Heparin Anti-Xa (04/05/2025 12:15 PM EDT) Heparin Anti-Xa (UFH) 0.17(L) 0.30 - 0.70 IU/ml 04/05/2025 1:21 PM EDT [facility] Blood Venipuncture / Unknown 04/05/2025 12:15 PM EDT 04/05/2025 1:04 PM EDT Una Perla PharmD LAB BLOOD ORDERABLES Final R esult [facility]
[address] [place] [address], * (ABNORMAL) aPTT (04/05/2025 3:54 AM EDT) PTT 35.3(L) 60.0 - 90.0 seconds 04/05/2025 4:31 AM EDT [facility] Blood Venipuncture / Unknown 04/05/2025 3:54 AM EDT 04/05/2025 4:15 AM EDT Narrative [facility] - 04/05/2025 4:31 AM EDT PTT = The equivalent PTT values for the therapeutic range of heparin levels at 0.3 to 0.5 U/ml are 60 to 70 seconds. Una Perla PharmD LAB BLOOD ORDERABLES Final R esult [facility]
[address] [place] [address], * Heparin Anti-Xa (04/05/2025 3:54 AM EDT) Pathologist [facility] Heparin Anti-Xa (UFH) 0.30 0.30 - 0.70 IU/ml 04/05/2025 4:32 AM EDT [facility] Blood Venipuncture / Unknown 04/05/2025 3:54 AM EDT 04/05/2025 4:15 AM EDT Una [employer] LAB BLOOD ORDERABLES Final R esult Performing Organization Address [facility]/ZIP Co de Phone Number [facility]
[address] [place] [address], * (ABNORMAL) CBC Auto Differential (04/05/2025 3:54 AM EDT) Pathologist [facility] WBC 11.18(H) 3.40 - 10.80 10*3/mm3 04/05/2025 4:20 AM EDT [facility] RBC 5.00 4.14 - 5.80 10*6/mm3 04/05/2025 4:20 AM EDT [facility] Hemoglobin 13.9 13.0 - 17.7 g/dL 04/05/2025 4:20 AM EDT [facility] Hematocrit 42.4 37.5 - 51.0 % 04/05/2025 4:20 AM EDT [facility] MCV 84.8 79.0 - 97.0 fL 04/05/2025 4:20 AM EDT [facility] MCH 27.8 26.6 - 33.0 pg 04/05/2025 4:20 AM EDT [facility] MCHC 32.8 31.5 - 35.7 g/dL 04/05/2025 4:20 AM [facility] RDW 12.9 12.3 - 15.4 % 04/05/2025 4:20 AM [facility] RDW-SD 39.7 37.0 - 54.0 fl 04/05/2025 4:20 AM [facility] MPV 10.2 6.0 - 12.0 fL 04/05/2025 4:20 AM [facility] Platelets 160 140 - 450 10*3/mm3 04/05/2025 4:20 AM [facility] Neutrophil % 73.5 42.7 - 76.0 % 04/05/2025 4:20 AM [facility] Lymphocyte % 14.0(L) 19.6 - 45.3 % 04/05/2025 4:20 AM [facility] Monocyte % 11.0 5.0 - 12.0 % 04/05/2025 4:20 AM [facility] Eosinophil % 0.8 0.3 - 6.2 % 04/05/2025 4:20 AM [facility] Basophil % 0.3 0.0 - 1.5 % 04/05/2025 4:20 AM [facility] Immature Grans % 0.4 0.0 - 0.5 % 04/05/2025 4:20 AM [facility] Neutrophils, Absolute 8.23(H) 1.70 - 7.00 10*3/mm3 04/05/2025 4:20 AM [facility] Lymphocytes, Absolute 1.56 0.70 - 3.10 10*3/mm3 04/05/2025 4:20 AM [facility] Monocytes, Absolute 1.23(H) 0.10 - 0.90 10*3/mm3 04/05/2025 4:20 AM [facility] Eosinophils, Absolute 0.09 0.00 - 0.40 10*3/mm3 04/05/2025 4:20 AM [facility] Basophils, Absolute 0.03 0.00 - 0.20 10*3/mm3 04/05/2025 4:20 AM EDT [facility] Immature Grans, Absolute 0.04 0.00 - 0.05 10*3/mm3 04/05/2025 4:20 AM EDT [facility] nRBC 0.0 0.0 - 0.2 /100 WBC 04/05/2025 4:20 AM EDT [facility] Blood Venipuncture / Unknown 04/05/2025 3:54 AM EDT 04/05/2025 4:16 AM EDT Una Perla PharmD LAB BLOOD ORDERABLES Final R esult [facility]
[address] [place] [address], * (ABNORMAL) Basic Metabolic Panel (04/05/2025 3:54 AM EDT) Glucose 152(H) 65 - 99 mg/dL 04/05/2025 4:40 AM EDT [facility] BUN 17.3 6.0 - 20.0 mg/dL 04/05/2025 4:40 AM EDT [facility] Creatinine 0.92 0.76 - 1.27 mg/dL 04/05/2025 4:40 AM EDT [facility] Sodium 136 136 - 145 mmol/L 04/05/2025 4:40 AM EDT [facility] Potassium 3.9 3.5 - 5.2 mmol/L 04/05/2025 4:40 AM EDT [facility] Chloride 103 98 - 107 mmol/L 04/05/2025 4:40 AM EDT [facility] CO2 24.0 22.0 - 29.0 mmol/L 04/05/2025 4:40 AM EDT [facility] Calcium 7.8(L) 8.6 - 10.5 mg/dL 04/05/2025 4:40 AM EDT [facility] BUN/Creatinine Ratio 18.8 7.0 - 25.0 04/05/2025 4:40 AM EDT [facility] Anion Gap 9.0 5.0 - 15.0 mmol/L 04/05/2025 4:40 AM EDT [facility] eGFR 105.2 >60.0 mL/min/1.7 3 04/05/2025 4:40 AM EDT [facility] Blood Venipuncture / Unknown 04/05/2025 [...] LAB BLOOD ORDERABLES Final Re sult [facility]
[address] [place] [address], * (ABNORMAL) aPTT (04/05/2025 12:18 AM EDT) PTT 33.6(L) 60.0 - 90.0 seconds 04/05/2025 12:53 AM EDT [facility] Blood Venipuncture / Unknown 04/05/2025 12:18 AM EDT 04/05/2025 12:37 AM EDT [facility] - 04/05/2025 12:53 AM EDT PTT = The equivalent PTT values for the therapeutic range of heparin levels at 0.3 to 0.5 U/ml are 60 to 70 seconds. [employer] PharmD LAB BLOOD ORDERABLES Final R esult Performing Organization Address City/[facility]/ZIP Co de Phone Number [facility]
[address] [place] [address], * (ABNORMAL) Protime-INR (04/05/2025 12:18 AM EDT) Protime 15.9(H) 12.2 - 15.3 Seconds 04/05/2025 12:53 AM EDT [facility] INR 1.19(H) 0.89 - 1.12 04/05/2025 12:53 AM EDT [facility] Blood Venipuncture / Unknown 04/05/2025 12:18 AM EDT 04/05/2025 12:37 AM EDT [employer] PharmD LAB BLOOD ORDERABLES Final R esult Performing Organization Address [facility] Co de Phone Number [facility]
[address] [place] [address], * Heparin Anti-Xa (04/05/2025 12:18 AM EDT) Pathologist [facility] Heparin Anti-Xa (UFH) 0.39 0.30 - 0.70 IU/ml 04/05/2025 12:54 AM EDT [facility] Blood Venipuncture / Unknown 04/05/2025 12:18 AM EDT 04/05/2025 12:37 AM EDT [employer] PharmD LAB BLOOD ORDERABLES Final R esult Performing Organization Address [facility]/ZIP Co de Phone Number [facility]
[address] [place] [address], * MRI Tibia Fibula Right With & [...] MD 04/04/2025 11:00 PM EDT Workstation ID: [id number] Narrative 04/04/2025 11:00 PM EDT MRI TIBIA [...] MD 04/04/2025 11:00 PM EDT Workstation ID: [id number] Leonora Shepherd MD IMG MRI ORDERABLES Final Resu lt * POC Creatinine (04/04/2025 2:49 PM EDT) Creatinine 1.10 0.60 - 1.30 mg/dL 04/07/2025 7:14 PM EDT [facility] Comment:Serial Number: [id number] 7Operator: [id number] Venous Blood 04/04/2025 2:49 PM EDT 04/07/2025 7:14 PM EDT Jason Álvarez DO POINT OF CARE TEST ORDERABLES Fi nal Result [facility]
[address] [place] [address], * (ABNORMAL) CBC Auto Differential (04/04/2025 2:47 PM EDT) [facility] WBC 12.72(H) 3.40 - 10.80 10*3/mm3 04/04/2025 2:56 PM EDT [facility] RBC 5.64 4.14 - 5.80 10*6/mm3 04/04/2025 2:56 PM EDT [facility] Hemoglobin 15.3 13.0 - 17.7 g/dL 04/04/2025 2:56 PM EDT [facility] Hematocrit 47.9 37.5 - 51.0 % 04/04/2025 2:56 PM EDT [facility] MCV 84.9 79.0 - 97.0 fL 04/04/2025 2:56 PM EDT [facility] MCH 27.1 26.6 - 33.0 pg 04/04/2025 2:56 PM EDT [facility] MCHC 31.9 31.5 - 35.7 g/dL 04/04/2025 2:56 PM EDT [facility] RDW 13.1 12.3 - 15.4 % 04/04/2025 2:56 PM EDT [facility] RDW-SD 40.3 37.0 - 54.0 fl 04/04/2025 2:56 PM EDT [facility] MPV 9.4 6.0 - 12.0 fL 04/04/2025 2:56 PM EDT [facility] Platelets 232 140 - 450 10*3/mm3 04/04/2025 2:56 PM EDT [facility] Neutrophil % 74.9 42.7 - 76.0 % 04/04/2025 2:56 PM EDT [facility] Lymphocyte % 13.1(L) 19.6 - 45.3 % 04/04/2025 2:56 PM EDT [facility] Monocyte % 11.2 5.0 - 12.0 % 04/04/2025 2:56 PM EDT [facility] Eosinophil % 0.4 0.3 - 6.2 % 04/04/2025 2:56 PM EDT [facility] Basophil % 0.2 0.0 - 1.5 % 04/04/2025 2:56 PM EDT [facility] Immature Grans % 0.2 0.0 - 0.5 % 04/04/2025 2:56 PM EDT [facility] Neutrophils, Absolute 9.52(H) 1.70 - 7.00 10*3/mm3 04/04/2025 2:56 PM EDT [facility] Lymphocytes, Absolute 1.66 0.70 - 3.10 10*3/mm3 04/04/2025 2:56 PM EDT [facility] Monocytes, Absolute 1.43(H) 0.10 - 0.90 10*3/mm3 04/04/2025 2:56 PM EDT [facility] Eosinophils, Absolute 0.05 0.00 - 0.40 10*3/mm3 04/04/2025 2:56 PM EDT [facility] Basophils, Absolute 0.03 0.00 - 0.20 10*3/mm3 04/04/2025 2:56 PM EDT [facility] Immature Grans, Absolute 0.03 0.00 - 0.05 10*3/mm3 04/04/2025 2:56 PM EDT [facility] nRBC 0.0 0.0 - 0.2 /100 WBC 04/04/2025 2:56 PM EDT [facility] Blood Venipuncture / Unknown 04/04/2025 2:47 PM EDT 04/04/2025 2:52 PM EDT us Mario Crowley DO LAB BLOOD ORDERABLES Fin al Result [facility]
[address] [place] [address], * (ABNORMAL) C-reactive Protein (04/04/2025 2:47 PM EDT) C-Reactive Protein 8.57(H) 0.00 - 0.50 mg/dL 04/04/2025 3:26 PM EDT [facility] Blood Venipuncture / Unknown 04/04/2025 2:47 PM EDT 04/04/2025 2:52 PM EDT [facility]ABLES Fin al Result Performing Organization Address City/[facility]/ZIP Co de Phone Number [facility]
[address] [place] [address], * (ABNORMAL) Sedimentation Rate (04/04/2025 2:47 PM EDT) Pathologist [facility] Sed Rate 51(H) 0 - 15 mm/hr 04/04/2025 3:06 PM EDT [facility] Blood Venipuncture / Unknown 04/04/2025 2:47 PM EDT 04/04/2025 2:52 PM EDT Mariocathy MorrisseyRobert [facility] LAB BLOOD ORDERABLES Fin al Result Performing Organization Address City/[facility] Co de Phone Number [facility]
[address] [place] [address], * Comprehensive Metabolic Panel (04/04/2025 2:47 PM EDT) Pathologist [facility] Glucose 90 65 - 99 mg/dL 04/04/2025 3:26 PM EDT [facility] BUN 18.3 6.0 - 20.0 mg/dL 04/04/2025 3:26 PM EDT [facility] Creatinine 0.94 0.76 - 1.27 mg/dL 04/04/2025 3:26 PM EDT [facility] Sodium 136 136 - 145 mmol/L 04/04/2025 3:26 PM EDT [facility] Potassium 3.8 3.5 - 5.2 mmol/L 04/04/2025 3:26 PM EDT [facility] Chloride 100 98 - 107 mmol/L 04/04/2025 3:26 PM EDT [facility] CO2 25.3 22.0 - 29.0 mmol/L 04/04/2025 3:26 PM EDT [facility] Calcium 8.6 8.6 - 10.5 mg/dL 04/04/2025 3:26 PM T [facility] Total Protein 7.3 6.0 - 8.5 g/dL 04/04/2025 3:26 PM EDT [facility] Albumin 4.1 3.5 - 5.2 g/dL 04/04/2025 3:26 PM T [facility] ALT (SGPT) 26 1 - 41 U/L 04/04/2025 3:26 PM [facility] AST (SGOT) 25 1 - 40 U/L 04/04/2025 3:26 PM T [facility] Alkaline Phosphatase 106 39 - 117 U/L 04/04/2025 3:26 PM T [facility] Total Bilirubin 1.0 0.0 - 1.2 mg/dL 04/04/2025 3:26 PM T [facility] Globulin 3.2 gm/dL 04/04/2025 3:26 PM [facility] Comment:Calculated Result A/G Ratio 1.3 g/dL 04/04/2025 3:26 PM [facility] BUN/Creatinine Ratio 19.5 7.0 - 25.0 04/04/2025 3:26 PM [facility] Anion Gap 10.7 5.0 - 15.0 mmol/L 04/04/2025 3:26 PM [facility] eGFR 102.5 >60.0 mL/min/1.7 3 04/04/2025 3:26 PM [facility] Blood Venipuncture / Unknown 04/04/2025 2:47 PM EDT 04/04/2025 2:52 PM EDT [facility] [place] - 04/04/2025 3:26 [...] LAB BLOOD ORDERABLES Fin al Result [facility]
[address] [place] [address], documented in this encounter Visit Diagnoses Diagnosis [...] full anticoagulation 1111 (Given - Provider: Shirley aHrt RN)203 (Given - Provider: Alberto Dillon RN) [...] Salazar, KELL)1943 (Given - Provider: Anahy Marcelino, MANAGER MEDICAL)2129 (Canceled Entry - Provider: Anahy Marcelino MANAGER MEDICAL - Comment: previously given) 0837 (Given - [...] (Canceled Entry - Provider: Alberot Dillon RN) 1004 (Given - Provider: Marguerite [...] Continuous Medication Order 04/09/2025 04/10/2025 04/11/2025 heparin 18273 units/250 mL (100 units/mL) in 0.45 % [...] documented as of this encounter Care Teams [employer] Consultant Relationship Specialty Start Date End Date Provider, [place] [address] PCP - General 05/09/23 documented as of this encounter
--- OUTSIDE RECORDS SUMMARY | 2025-04-07 20:36 | XMS_ITS | Encounter Summary ---
Author Organization [facility] Address [address] [place] [address] Care Team Providers Care Senior Regulatory Affairs Specialist Name Role Phone Provider, No Known Primary Care Provider Unavail able Reason for Visit * Auth/Cert Specialty Diagnoses / Procedures Referred By Bulmaro muniz Referred To Contact Diagnoses Right BKA infection Referral ID Status Reason Start Date Expiration Date Visits Re quested Visits Authorized [id number] 1 1 Encounter Details Date Type Department Care Team (Late st Contact Info) Description 04/07/2025 8:36 PM EDT Anesthesia Event [facility] OR [address] [place] [address] Luci Alonso DO [address] [place] [address] Anesthesia Record Procedure Summary Procedure Name Responsible [...] drink = 0.6 oz pur e alcohol) [facility] Utilities Answer Date Recorded In the past 12 months has [employer], gas, oil, or water [employer] threatened to shut off services in your [...] or training? Not on file Preferred Language Wallisian 04/07/2025 Sex and Gender Information Value Date [...] PACU on O2NC, breathing comfortably. Report to SURGICAL RESIDENT at bedside. VSS. 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 ) intravenous induction Anesthetic plan, risks, benefits, and alternatives have been provided, discussed and informed consent has been obtained with: patient. Plan discussed with INSTRUMENT ROOM TECHNICIAN. CODE STATUS: Code Status (Patient has no [...] documented as of this encounter Care Teams Senior Regulatory Affairs Specialist Relationship Specialty Start Date End Date Provider, No Known [facility] [address] PCP - General 05/09/23 documented as of this encounter
--- OUTSIDE RECORDS SUMMARY | 2025-04-08 14:45 | XMS_ITS | Encounter Summary ---
[facility] Address [address] [place] [address] Care Team Providers Care Tassel Maker Name Role Phone Provider, No Known Primary Care Provider Unavail able Reason for Visit * Reason Comments Leg Swelling * Auth/Cert Specialty Diagnoses / Procedures Referred By Contac t Referred To Contact Diagnoses Right BKA infection Referral ID Status Reason Start Date Expiration Date Visits Re quested Visits Authorized [id number] 1 1 Encounter Details Date Type Department Care Team (Late st Contact Info) Description 04/08/2025 2:45 PM EDT - 04/08/2025 4:04 PM EDT Surgery [facility] OR [address] [place] [address] Sushil Dean Jr., MD [address] [place] [address] [address] [id number] LEG DEBRIDEMENT AND IRRIGATION Social History Tobacco Use Types Packs/Day Years Used Date Smoking Tobacco: Never Smokeless Tobacco: Never Tobacco Cessation:Counseling Given: Not Answered Alcohol Use Standard Drinks/Week Comments Not Currently 0 (1 standard drink = 0.6 oz pur e alcohol) [facility] Utilities Answer Date Recorded In the past 12 months has [employer] electric, gas, oil, or water company threatened [...] 2:25 PM EDT Cherri Grimm RN * [place] Suicide Severity Rating Scale (Screener/Recent Self-Report) Question [...] from the original note were not included. [facility] Medicine Services DISCHARGE SUMMARY Patient [...] Date/Time Wound Culture - Swab, Leg, Right [[id number]] (Abnormal) (Susceptibility) Collected: 04/07/252106 Lab Status: Final [...] Units Date/Time FL C Arm During Surgery [[id number]] Resulted: 04/07/252137 Updated: 04/07/252137 Narrative: This procedure was auto-finalized with no dictation required. MRI Tibia Fibula Right With & Without Contrast [[id number]] Collected: 04/07/25 0938 Updated: 04/07/25 1001 Narrative: [...] Buenrostro 04/07/2025 9:58 AM EDT Workstation ID: [id number] MRI Tibia Fibula Right With & Without Contrast [[id number]] Collected: 04/04/252256 Updated: 04/04/252302 Narrative: MRI TIBIA [...] represent a small area of phlegmonous change ([id number] image 10) measuring approximately 1.6 cm which [...] MD 04/04/2025 11:00 PM EDT Workstation ID: [id number] Pending Labs Order Current Status Fungus Culture [...] Male) Date of 1980 Social Security Number [id number] [place] [address] [place] [address] Druze Unknown Marital Status Unknown Admission Date [...] Group [place] [id number] Payor Plan Address Payor Plan Phone Number Payor Plan Fax Number Effective Dates [employer] [address] [address] 08/10/2023 - None Entered [facility] [address] Subscriber Name Subscriber Date Member ID WON DENNIS 1980 [id number] Emergency Contacts Or Manager (Rel.) Home Phone Work Phone Mobile Phone Avril Dennis (Spouse) -- -- [phone] Robert Hackett (Relative) -- -- [phone] [facility] [address]G [address] [facility] [address] Patient: ROOM: [facility] Won Dennis [address] [place] [address] : 1980 SSN: [id number] Sex: M PCP: Provider, No Known Emergency Contact Information Name Relation Home Work Mobile Avril Dennis Spouse [phone] Other Contacts Name Relation Home Work Mobile Robert Hackett Relative [phone] INSURANCE PA[employer]OR [employer]AN [employer] # SUBSCRIBER ID Primary: Secondary: MEDICARE [place] [id number] Admitting Diagnosis: 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 He is known to Dr. Dean. [...] Jr., MD, 20 mg at 04/09/25906 heparin 08824 units/250 mL (100 units/mL) in 0.45 % [...] infusion 40 mL, 40 mL, Intravenous, PRN, aCrlton Mead MD tamsulosin (FLOMAX) 24 hr capsule [...] Units Date/Time FL C Arm During Surgery [[id number]] Resulted: 04/07/252137 Updated: 04/07/252137 Narrative: This procedure was auto-finalized with no dictation required. MRI Tibia Fibula Right With & Without Contrast [[id number]] Collected: 04/07/2538 Updated: 04/07/25 1001 Narrative: MRI [...] Buenrostro 04/07/2025 9:58 AM EDT Workstation ID: [id number] Impression: Recurrent Right BKA stump abscess/cellulitis- this [...] 04/10/251323 Creation Time: 04/10/251323 Signed Expand All [facility] Medicine Services PROGRESS NOTE Patient Name: [...] Date/Time Wound Culture - Swab, Leg, Right [[id number]] (Abnormal) (Susceptibility) Collected: 04/07/252106 Lab Status: Final [...] Row Name 04/06/25 1143 Sit-Stand Transfer Sit-Stand Randolph (Transfers) modified independence - Comment, (Sit-Stand Transfer) Pt stood from recliner. Not holding onto walker, pt able to pull his pants up while balancing on his one leg. -LM Row Name 04/06/25 1143 Gait/Stairs (Locomotion) Randolph Level (Gait) modified independence - Distance in [...] Nurse Physical Therapy Education Title: PT OT LATEX THREAD 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 Therapies (Done) Topic: Physical Therapy (Done) Point: Mobility training (Done) Learning Progress Summary Patient Acceptance, E, VU,DU by at 04/06/2025 1147 Point: Precautions (Done) Learning Progress Summary Patient Acceptance, E, VU,DU by at 04/06/2025 1147 User Cabrera Initials Effective Dates Name Provider Type [facility] 01/24/25 - Susan Cavazos, PT [...] Description Service Date Service Provider Modifiers Qty [id number] PT EVAL LOW COMPLEXITY 3 04/06/2025 Susan [...] mg Daily 04/05/2025 -- Route: Oral heparin 69410 units/250 mL (100 units/mL) in 0.45 % [...] 22 [facility] [address], [address] [facility], [address] Please schedule at [phone] VONDA Garcia 04/11/25 08:32 EDT Cosigned by Sushil Dean Jr., MD at 04/19/2025 10:33 AM EDT Associated attestation - Sushil Dean Jr., MD - 04/19/2025 10:33 AM EDT I have reviewed this documentation and agree. * Rosario Hill APRN - 04/10/2025 1:24 PM EDT Images from the original note were not included. [facility] Medicine Services PROGRESS NOTE Patient [...] Date/Time Wound Culture - Swab, Leg, Right [[id number]] (Abnormal) (Susceptibility) Collected: 04/07/252106 Lab Status: Final [...] mg Daily 04/05/2025 -- Route: Oral heparin 13744 units/250 mL (100 units/mL) in 0.45 % [...] 22 [facility] [address] [facility], [address] [facility], [address] Please schedule at [phone] VONDA Garcia 04/10/25 09:01 EDT Cosigned by Sushil Dean Jr., MD at 04/19/2025 10:33 AM EDT Associated attestation - Sushil Dean Jr., MD - 04/19/2025 10:33 AM EDT I have reviewed this documentation and agree. * Carlton Mead MD - 04/10/2025 7:38 AM EDT Images from the original note were not included. INFECTIOUS DISEASE Progress Note Won Dennis 1980 [id number] Date of Consult: 04/10/2025 Admission Date: 04/04/2025 [...] prompted him to seek treatment at [facility]. He is known to Dr. Dean. [...] IRRIGATION; Surgeon: Sushil Dean Jr., MD; Location: [facility] OR; Service: Orthopedics; Laterality: Right; PLACEMENT OF WOUND VAC Right 04/07/2025 Procedure: WOUND VACUUM ASSISTED CLOSURE; Surgeon: Sushil Dean Jr., MD; Location: [facility] OR; Service: Orthopedics; Laterality: Right; WOUND CLOSURE [...] Jr., MD, 20 mg at 04/09/25906 heparin 85314 units/250 mL (100 units/mL) in 0.45 % [...] Units Date/Time FL C Arm During Surgery [[id number]] Resulted: 04/07/252137 Updated: 04/07/252137 Narrative: This procedure was auto-finalized with no dictation required. MRI Tibia Fibula Right With & Without Contrast [[id number]] Collected: 04/07/25937 Updated: 04/07/25 100 Narrative: MRI [...] Buenrostro 04/07/2025 9:58 AM EDT Workstation ID: [id number] Impression: Recurrent Right BKA stump abscess/cellulitis- this [...] from the original note were not included. [facility] Medicine Services PROGRESS NOTE Patient [...] Date/Time Wound Culture - Swab, Leg, Right [[id number]] (Abnormal) Collected: 04/07/252106 Lab Status: Preliminary result [...] mg Daily 04/05/2025 -- Route: Oral heparin 99299 units/250 mL (100 units/mL) in 0.45 % [...] radiographs [facility] [address] [facility], [address] [facility], [address] Please schedule at [phone] VONDA Garcia 04/09/25 09:18 EDT Cosigned by Sushil Dean Jr., MD at 04/19/2025 10:33 AM EDT Associated attestation - Sushil Dean Jr., MD - 04/19/2025 10:33 AM EDT I have reviewed this documentation and agree. * Carlton Mead MD - 04/09/2025 8:25 AM EDT Images from the original note were not included. INFECTIOUS DISEASE Progress Note Won Dennis 1980 [id number] Date of Consult: 04/09/2025 Admission Date: 04/04/2025 [...] prompted him to seek treatment at [facility]. He is known to Dr. Dean. [...] Dean Jr., MD; Location: [facility]; Service: Orthopedics; Laterality: Right; PLACEMENT OF WOUND VAC Right 04/07/2025 Procedure: WOUND VACUUM ASSISTED CLOSURE; Surgeon: Sushil Dean Jr., MD; Location: [facility] OR; Service: Orthopedics; Laterality: [...] MD, 20 mg at 04/08/25 0800 heparin 98218 units/250 mL (100 units/mL) in 0.45 % [...] Units Date/Time FL C Arm During Surgery [[id number]] Resulted: 04/07/252137 Updated: 04/07/252137 Narrative: This procedure was auto-finalized with no dictation required. MRI Tibia Fibula Right With & Without Contrast [[id number]] Collected: 04/07/25 0938 Updated: 04/07/25 1001 Narrative: [...] Chitra 04/07/2025 9:58 AM EDT Workstation ID: [id number] Impression: Recurrent Right BKA stump abscess/cellulitis- this [...] from the original note were not included. [facility] Medicine Services PROGRESS NOTE Patient [...] Buenrostro 04/07/2025 9:58 AM EDT Workstation ID: [id number] I have personally reviewed the therapy plans: [...] mg Daily 04/05/2025 -- Route: Oral heparin 91256 units/250 mL (100 units/mL) in 0.45 % [...] INFECTIOUS DISEASE Progress Note Won Dennis 1980 [id number] Date of Consult: 04/08/2025 Admission Date: 04/04/2025 [...] prompted him to seek treatment at [facility]. He is known to Dr. Dean. [...] Right 04/07/2025 Procedure: LEG DEBRIDEMENT, IRRIGATION; Surgeon: Ssuhil Dean Jr., MD; Location: [facility] OR; Service: Orthopedics; Laterality: Right; PLACEMENT OF WOUND VAC Right 04/07/2025 Procedure: WOUND VACUUM ASSISTED CLOSURE; Surgeon: Sushil Dean Jr., MD; Location: [facility] OR; Service: Orthopedics; Laterality: [...] Oral, Q6H PRN, 500 mg at 04/06/25 0414 OR acetaminophen (TYLENOL) 160 MG/5ML oral solution [...] Jr., MD, 20 mg at 04/07/25950 heparin 78486 units/250 mL (100 units/mL) in 0.45 % NaCl infusion, 18 Units/kg/hr, Intravenous, Titrated, Susihl Dean Jr., MD, Last Rate: 24.1 mL/hr [...] Units Date/Time FL C Arm During Surgery [[id number]] Resulted: 04/07/252137 Updated: 04/07/252137 Narrative: This procedure was auto-finalized with no dictation required. 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 (Treated by ID in [place] Dr. Harris). Dr. Torres treated him with [...] from the original note were not included. [facility] Medicine Services PROGRESS NOTE Patient [...] Buenrostro 04/07/2025 9:58 AM EDT Workstation ID: [id number] I have personally reviewed the therapy plans: [...] INFECTIOUS DISEASE Progress Note Won Dennis 1980 [id number] Date of Consult: 04/07/2025 Admission Date: 04/04/2025 [...] prompted him to seek treatment at [facility]. He is known to Dr. Dean. [...] MD, 20 mg at 04/06/25 0900 heparin 53689 units/250 mL (100 units/mL) in 0.45 % [...] With & Without Contrast - In process [[id number]] Resulted: 04/07/25828 Updated: 04/07/25828 This result has not been signed. Information might be incomplete. 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 (Treated by ID in [place] Dr. Harris). Dr. Torres treated him with [...] mg Daily 04/05/2025 -- Route: Oral heparin 58302 units/250 mL (100 units/mL) in 0.45 % [...] from the original note were not included. [facility] Medicine Services PROGRESS NOTE Patient [...] MD 04/04/2025 11:00 PM EDT Workstation ID: [id number] I have personally reviewed the therapy plans: [...] mg Daily 04/05/2025 -- Route: Oral heparin 96680 units/250 mL (100 units/mL) in 0.45 % [...] INFECTIOUS DISEASE follow up. Won Dennis 1980 [id number] Date of Consult: 04/06/2025 Admission Date: 04/04/2025 [...] prompted him to seek treatment at [facility]. He is known to Dr. Dean. 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 (Treated by ID in [place] Dr. Harris). Dr. Torres treated him with [...] New start -- +11 11 0600 ALDEN Hernanedz. 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 04/05 0500 0.30 11 -- -- 11 1200 ALDEN LEIGH 04/05 1215 0.17 11 1999 +3 14 2100 ALDEN Beatty RPH 04/05/2025 14:55 EDT * Jason Álvarez DO - 04/05/2025 12:43 PM EDT Images from the original note were not included. [facility] Medicine Services PROGRESS NOTE Patient [...] MD 04/04/2025 11:00 PM EDT Workstation ID: [id number] I have personally reviewed the therapy plans: [...] from the original note were not included. 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 He [...] was evaluated in the emergency department in [place], was discharged with instructions for follow-up. He [...] mouth Daily. 04/03/2025 Morning Lactobacillus-Inulin ([facility]) capsule Take 200 mg by [...] MD 04/04/2025 11:00 PM EDT Workstation ID: [id number] Assessment: Right BKA infection 44-year-old male with [...] DISEASE CONSULT/INITIAL HOSPITAL VISIT Won Dennis 1980 [id number] Date of Consult: 04/05/2025 Admission Date: 04/04/2025 [...] prompted him to seek treatment at [facility]. He is known to Dr. Dean. 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 (Treated by ID in [place] Dr. Harris). Dr. Torres treated him with [...] Care Recent Flowsheet Documentation Taken 04/08/20251942 by Bbo Rosenberg RN Trust Relationship/Rapport: care explained choices [...] infection POSTOP DIAGNOSIS: Same. PROCEDURE: Right Right 35930: Secondary closure below-knee amputation SURGEON: Sushil Dean MD OPERATIVE TEAM: Inspector Precision: Susi Grullon RN Scrub Person: Mary Paredes Scrub Person Extra: Hortencia Toribio Other: Katt Gotti RN; Charis Neville RN ANESTHETIST: Anesthesiologist: Ulises Hoffman MD FRONT DESK AUXILIARY: Stan Casillas CRNA Student Nurse Shrimp Boat Captain: Karol Albert SRNA ANESTHESIA: Choice ESTIMATED BLOOD [...] CULTURE (Canceled) Sushil Dean Jr., MD 04/08/25 8031 Description: RIGHT LEG DEEP WOUND FOR CULTURE [...] PM EDT [facility], [place] [address] OPERATIVE REPORT PATIENT NAME: Won Dennis DATE OF : 1980 PREOP DIAGNOSIS: Right Right below knee amputation stump infection POSTOP DIAGNOSIS: Same. PROCEDURE: Right Right 60066: Incision and drainage of surgical site infection 75205: Debridement of skin, subcutaneous tissue, muscle 12543: Wound vacuum-assisted closure SURGEON: Sushil Dean MD OPERATIVE TEAM: Inspector Precision: Anum Sanchez RN Scrub Person: Hortencia Toribio; Gerald Ivey RAYON WINDER: Anesthesiologist: Luci Alonso DO ANESTHESIA: General [...] swellling of the area. seen at [facility] yesterday for CT and US, here [...] this chart in the absence of a management accounts manager. No orders to display RADIOLOGY: [x] [...] with KELLEE and given themhis Medicare number [id number], she sent it to Admission. DEBRA spoke [...] over to [facility] at [phone]. CM will follow up with them tomorrow [...] with patient at bedside today. Wheelchair from [employer] is at bedside. Patient getting PICC line [...] family Patient/Family Anticipated Services at Transition case linercopyright manager Anticipated family or friend will provide Discharge Needs Assessment Equipment Currently Used at Home glucometer;shower chair;pulse ox;bp cuff;prosthesis;crutches Equipment Needed After Discharge none Discharge Plan Row Name 04/07/25 1144 Plan Plan Home Patient/Family in Agreement with Plan yes Plan Comments CM spoke with patient at bedside today. Patient lives with and his 5 kids in [facility]. He is independent with ADLs [...] CBC Auto Differential (04/11/2025 3:40 AM EDT) [facility] WBC 7.87 3.40 - 10.80 10*3/mm3 04/11/2025 4:02 AM EDT [facility] RBC 4.70 4.14 - 5.80 10*6/mm3 04/11/2025 4:02 AM [facility] Hemoglobin 12.8(L) 13.0 - 17.7 g/dL 04/11/2025 4:02 AM [facility] Hematocrit 40.5 37.5 - 51.0 % 04/11/2025 4:02 AM [facility] MCV 86.2 79.0 - 97.0 fL 04/11/2025 4:02 AM [facility] MCH 27.2 26.6 - 33.0 pg 04/11/2025 4:02 AM [facility] MCHC 31.6 31.5 - 35.7 g/dL 04/11/2025 4:02 AM [facility] RDW 12.9 12.3 - 15.4 % 04/11/2025 4:02 AM [facility] RDW-SD 40.5 37.0 - 54.0 fl 04/11/2025 4:02 AM [facility] MPV 9.2 6.0 - 12.0 fL 04/11/2025 4:02 AM [facility] Platelets 267 140 - 450 10*3/mm3 04/11/2025 4:02 AM [facility] Neutrophil % 59.5 42.7 - 76.0 % 04/11/2025 4:02 AM [facility] Lymphocyte % 26.3 19.6 - 45.3 % 04/11/2025 4:02 AM [facility] Monocyte % 9.3 5.0 - 12.0 % 04/11/2025 4:02 AM [facility] Eosinophil % 4.1 0.3 - 6.2 % 04/11/2025 4:02 AM [facility] Basophil % 0.4 0.0 - 1.5 % 04/11/2025 4:02 [facility] Immature Grans % 0.4 0.0 - 0.5 % 04/11/2025 4:02 AM EDT [facility] Neutrophils, Absolute 4.69 1.70 [...] Fi nal Result [facility]
[address] [place] [address], * (ABNORMAL) Comprehensive Metabolic Panel (04/11/2025 3:40 AM EDT) Glucose 108(H) 65 - 99 mg/dL 04/11/2025 4:19 AM EDT [facility] BUN 12.5 6.0 - 20.0 mg/dL 04/11/2025 4:19 AM EDT [facility] Creatinine 0.68(L) 0.76 - 1.27 mg/dL 04/11/2025 4:19 AM [facility] Sodium 140 136 - 145 mmol/L 04/11/2025 4:19 AM [facility] Potassium 3.8 3.5 - 5.2 mmol/L 04/11/2025 4:19 AM [facility] Chloride 105 98 - 107 mmol/L 04/11/2025 4:19 AM [facility] CO2 28.2 22.0 - 29.0 mmol/L 04/11/2025 4:19 AM [facility] Calcium 8.2(L) 8.6 - 10.5 mg/dL 04/11/2025 4:19 AM [facility] Total Protein 6.1 6.0 - 8.5 g/dL 04/11/2025 4:19 AM [facility] Albumin 3.1(L) 3.5 - 5.2 g/dL 04/11/2025 4:19 AM [facility] ALT (SGPT) 52(H) 1 - 41 U/L 04/11/2025 4:19 AM [facility] AST (SGOT) 40 1 - 40 U/L 04/11/2025 4:19 AM [facility] Alkaline Phosphatase 99 39 - 117 U/L 04/11/2025 4:19 AM [facility] Total Bilirubin 0.2 0.0 - 1.2 mg/dL 04/11/2025 4:19 AM [facility] Globulin 3.0 gm/dL 04/11/2025 4:19 AM [facility] Comment:Calculated Result A/G Ratio 1.0 g/dL 04/11/2025 4:19 AM [facility] BUN/Creatinine Ratio 18.4 7.0 - 25.0 04/11/2025 4:19 AM [facility] Anion Gap 6.8 5.0 - 15.0 mmol/L 04/11/2025 4:19 AM [facility] eGFR 117.5 >60.0 mL/min/1.7 3 04/11/2025 4:19 AM EDT [facility] Blood Venipuncture / Unknown 04/11/2025 3:40 AM EDT 04/11/2025 3:56 AM EDT [facility] - 04/11/2025 4:19 [...] Hill APRN LAB BLOOD ORDERABLES Final Result [facility]
[address] [place] [address], * (ABNORMAL) CBC Auto Differential (04/10/2025 3:46 [...] 26.6 - 33.0 pg 04/10/2025 3:56 AM [facility] MCHC 32.2 31.5 - 35.7 g/dL 04/10/2025 3:56 AM EDT [facility] RDW 12.9 12.3 - 15.4 % 04/10/2025 3:56 AM [facility] RDW-SD 40.5 37.0 - 54.0 fl 04/10/2025 3:56 AM EDT [facility] MPV 9.5 6.0 - 12.0 fL 04/10/2025 3:56 AM EDT [facility] Platelets 227 140 - 450 10*3/mm3 04/10/2025 3:56 AM [facility] Neutrophil % 59.1 42.7 - 76.0 % 04/10/2025 3:56 AM [facility] Lymphocyte % 29.0 19.6 - 45.3 % 04/10/2025 3:56 AM [facility] Monocyte % 8.1 5.0 - 12.0 % 04/10/2025 3:56 AM [facility] Eosinophil % 3.2 0.3 - 6.2 % 04/10/2025 3:56 AM [facility] Basophil % 0.4 0.0 - 1.5 % 04/10/2025 3:56 AM [facility] Immature Grans % 0.2 0.0 - 0.5 % 04/10/2025 3:56 AM [facility] Neutrophils, Absolute 5.67 1.70 - 7.00 10*3/mm3 04/10/2025 3:56 AM [facility] Lymphocytes, Absolute 2.78 0.70 - 3.10 10*3/mm3 04/10/2025 3:56 AM [facility] Monocytes, Absolute 0.78 0.10 - 0.90 10*3/mm3 04/10/2025 3:56 AM [facility] Eosinophils, Absolute 0.31 0.00 - 0.40 10*3/mm3 04/10/2025 3:56 AM EDT [facility] Basophils, Absolute 0.04 0.00 [...] Final Resul t [facility]
[address] [place] [address], * (ABNORMAL) Basic Metabolic Panel (04/10/2025 3:46 [...] - 10.5 mg/dL 04/10/2025 4:20 AM EDT [facility] LABORATORY BUN/Creatinine Ratio 20.6 7.0 [...] Final Resul t [facility]
[address] [place] [address], * Heparin Anti-Xa (04/10/2025 3:46 AM EDT) Heparin Anti-Xa (UFH) 0.35 0.30 - 0.70 IU/ml 04/10/2025 4:23 AM EDT [facility] Blood Venipuncture / Unknown 04/10/2025 3:46 AM EDT 04/10/2025 3:53 AM EDT Larisa Hamilton [facility] LAB BLOOD ORDERABLES Final R esult [facility]
[address] [place] [address], * Heparin Anti-Xa (04/09/2025 10:05 AM EDT) Pathologist [facility] Heparin Anti-Xa (UFH) 0.36 0.30 - 0.70 IU/ml 04/09/2025 11:12 AM EDT [facility] Blood Venipuncture / Unknown 04/09/2025 10:05 AM EDT 04/09/2025 10:47 AM EDT Larisa Hamilton [facility] LAB BLOOD ORDERABLES Final R esult [facility]
[address] [place] [address], * (ABNORMAL) CBC Auto Differential (04/09/2025 4:18 [...] 12.3 - 15.4 % 04/09/2025 4:50 AM [facility] RDW-SD 39.9 37.0 - 54.0 fl 04/09/2025 4:50 AM [facility] MPV 10.0 6.0 - 12.0 fL 04/09/2025 4:50 AM [facility] Platelets 211 140 - 450 10*3/mm3 04/09/2025 4:50 AM [facility] Neutrophil % 74.8 42.7 - 76.0 % 04/09/2025 4:50 AM [facility] Lymphocyte % 15.4(L) 19.6 - 45.3 % 04/09/2025 4:50 AM [facility] Monocyte % 8.5 5.0 - 12.0 % 04/09/2025 4:50 AM [facility] Eosinophil % 0.6 0.3 - 6.2 % 04/09/2025 4:50 AM [facility] Basophil % 0.4 0.0 - 1.5 % 04/09/2025 4:50 AM [facility] Immature Grans % 0.3 0.0 - 0.5 % 04/09/2025 4:50 AM [facility] Neutrophils, Absolute 8.23(H) 1.70 - 7.00 10*3/mm3 04/09/2025 4:50 AM [facility] Lymphocytes, Absolute 1.69 0.70 - 3.10 10*3/mm3 04/09/2025 4:50 AM [facility] Monocytes, Absolute 0.94(H) 0.10 - 0.90 10*3/mm3 04/09/2025 4:50 AM [facility] Eosinophils, Absolute 0.07 0.00 - 0.40 10*3/mm3 04/09/2025 4:50 [facility] Basophils, Absolute 0.04 0.00 - 0.20 10*3/mm3 04/09/2025 4:50 AM EDT [facility] Immature [...] nal Result Performing Organization Address City/[facility]/ZIP Co de Phone Number [facility]
[address] [place] [address], * Heparin Anti-Xa (04/09/2025 4:18 AM EDT) Heparin Anti-Xa (UFH) 0.41 0.30 - 0.70 IU/ml 04/09/2025 4:53 AM EDT [facility] Blood Venipuncture / Unknown 04/09/2025 4:18 AM EDT 04/09/2025 4:31 AM EDT Una LundbergD LAB BLOOD ORDERABLES Final R esult [facility]
[address] [place] [address], * (ABNORMAL) Basic Metabolic Panel (04/09/2025 4:18 [...] 4:18 AM EDT 04/09/2025 4:29 AM EDT [facility] LABORATORY - 04/09/2025 5:33 [...] nal Result [facility]
[address] [place] [address], * Wound Culture - Swab, Leg, Right [...] Final Result Performing Organization Address City/[facility]/ZIP Co de Phone Number [facility]
[address] [place] [address], [facility]
[address] [place] [address], * Anaerobic Culture - Swab, Leg, Right (04/08/2025 3:40 PM EDT) Anaerobic Culture No anaerobes isolated at 5 days ALIZA 04/13/2025 7:24 AM EDT [facility] Swab Structure of right lower limb / Unknown 04/08/2025 3:40 PM EDT 04/08/2025 8:05 PM EDT us Sushil Dean Jr., MD MICROBIOLOGY - GENERAL ORDERABLES Final Result Performing Organization Address City/[facility]/ZIP Co de Phone Number [facility]
[address] [place] [address], * Scan Slide (04/08/2025 8:41 AM EDT) [...] Final R esult [facility]
[address] [place] [address], * (ABNORMAL) CBC Auto Differential (04/08/2025 8:41 [...] 37.0 - 54.0 fl 04/08/2025 11:02 AM [facility] MPV 11.0 6.0 - 12.0 fL 04/08/2025 11:02 AM [facility] Platelets 118(L) 140 - 450 10*3/mm3 04/08/2025 11:02 AM [facility] Neutrophil % 85.1(H) 42.7 - 76.0 % 04/08/2025 11:02 AM [facility] Lymphocyte % 9.3(L) 19.6 - 45.3 % 04/08/2025 11:02 AM [facility] Monocyte % 4.6(L) 5.0 - 12.0 % 04/08/2025 11:02 AM [facility] Eosinophil % 0.3 0.3 - 6.2 % 04/08/2025 11:02 AM [facility] Basophil % 0.2 0.0 - 1.5 % 04/08/2025 11:02 AM [facility] Immature Grans % 0.5 0.0 - 0.5 % 04/08/2025 11:02 AM [facility] Neutrophils, Absolute 8.57(H) 1.70 - 7.00 10*3/mm3 04/08/2025 11:02 AM [facility] Lymphocytes, Absolute 0.94 0.70 - 3.10 10*3/mm3 04/08/2025 11:02 AM [facility] Monocytes, Absolute 0.46 0.10 - 0.90 10*3/mm3 04/08/2025 11:02 AM [facility] Eosinophils, Absolute 0.03 0.00 - 0.40 10*3/mm3 04/08/2025 11:02 AM [facility] Basophils, Absolute 0.02 0.00 - 0.20 10*3/mm3 04/08/2025 11:02 AM [facility] Immature Grans, Absolute 0.05 0.00 - 0.05 10*3/mm3 04/08/2025 11:02 AM EDT [facility] nRBC 0.0 0.0 - 0.2 /100 WBC 04/08/2025 11:02 AM EDT [facility] Blood Venipuncture / Unknown 04/08/2025 8:41 AM EDT 04/08/2025 9:10 AM EDT Una Perla PharmD LAB BLOOD ORDERABLES Final R esult [facility]
[address] [place] [address], * (ABNORMAL) Basic Metabolic Panel (04/08/2025 8:41 [...] nal Result Performing Organization Address City/[facility]/ZIP Co de Phone Number [facility]
[address] [place] [address], * Heparin Anti-Xa (04/08/2025 8:41 AM EDT) Heparin Anti-Xa (UFH) 0.33 0.30 - 0.70 IU/ml 04/08/2025 9:40 AM EDT [facility] Blood Venipuncture / Unknown 04/08/2025 8:41 AM EDT 04/08/2025 9:10 AM EDT Sushil Dean Jr., MD LAB BLOOD ORDERABLES Fi nal Result Performing Organization Address City/[facility]/ZIP Co de Phone Number [facility]
[address] [place] [address], * FL C Arm During Surgery (04/07/2025 [...] Final Result Performing Organization Address City/[facility]/ZIP Co de Phone Number [facility]
[address] [place] [address], [place] [phone] [facility]
[address] [place] [address], [place] [phone] * Anaerobic Culture - Swab, Leg, Right (04/07/2025 9:14 PM EDT) Anaerobic Culture No anaerobes isolated at 5 days ALIZA 04/13/2025 7:21 AM EDT [facility] Swab Structure of right lower limb / Unknown Collection / Unknown 04/07/2025 9:14 PM EDT 04/08/2025 4:36 AM EDT us Sushil Dean Jr., MD MICROBIOLOGY - GENERAL ORDERABLES Final Result [facility]
[address] [place] [address], * Anaerobic Culture - Tissue, Leg (04/07/2025 9:13 PM EDT) Anaerobic Culture No anaerobes isolated at 5 days ALIZA 04/13/2025 7:21 AM EDT [facility] Tissue Lower limb structure / Unknown Collection / Unknown 04/07/2025 9:13 PM EDT 04/08/2025 4:54 AM EDT Jason Álvarez DO MICROBIOLOGY - GENERAL ORDERABLE S Final Result Performing Organization Address [facility]/State/ZIP Co de Phone Number [facility]
[address] [place] [address], * Tissue / Bone Culture - Tissue, [...] ORDERABLES Final Result [facility]
[address] [place] [address], [facility]
[address] [place] [address], [place] [phone] * (ABNORMAL) Wound Culture - Swab, Leg, [...] ORDERABLES Final Result [facility]
[address] [place] [address], [place] [phone] [facility]
[address] [place] [address], [place] [phone] * Anaerobic Culture - Swab, Leg, Right (04/07/2025 9:07 PM EDT) Anaerobic Culture No anaerobes isolated at 5 days ALIZA 04/13/2025 7:21 AM EDT [facility] Swab Structure of right lower limb / Unknown Collection / Unknown 04/07/2025 9:07 PM EDT 04/08/2025 4:36 AM EDT us Sushil Dean Jr., MD MICROBIOLOGY - GENERAL ORDERABLES Final Result [facility]
[address] [place] [address], * Heparin Anti-Xa (04/07/2025 9:10 AM EDT) Pathologist [facility] Heparin Anti-Xa (UFH) 0.30 0.30 - 0.70 IU/ml 04/07/2025 10:12 AM EDT [facility] Blood Venipuncture / Unknown 04/07/2025 9:10 AM EDT 04/07/2025 9:38 AM EDT Una Perla PharmD LAB BLOOD ORDERABLES Final R esult Performing Organization Address City/[facility]/ZIP Co de Phone Number [facility]
[address] [place] [address], * (ABNORMAL) CBC Auto Differential (04/07/2025 9:10 [...] 12.3 - 15.4 % 04/07/2025 9:50 AM [facility] RDW-SD 39.9 37.0 - 54.0 fl 04/07/2025 9:50 AM [facility] MPV 10.8 6.0 - 12.0 fL 04/07/2025 9:50 AM [facility] Platelets 149 140 - 450 10*3/mm3 04/07/2025 9:50 AM [facility] Neutrophil % 66.7 42.7 - 76.0 % 04/07/2025 9:50 AM [facility] Lymphocyte % 20.5 19.6 - 45.3 % 04/07/2025 9:50 AM [facility] Monocyte % 9.8 5.0 - 12.0 % 04/07/2025 9:50 AM [facility] Eosinophil % 2.1 0.3 - 6.2 % 04/07/2025 9:50 AM [facility] Basophil % 0.3 0.0 - 1.5 % 04/07/2025 9:50 AM [facility] Immature Grans % 0.6(H) 0.0 - 0.5 % 04/07/2025 9:50 AM [facility] Neutrophils, Absolute 5.75 1.70 - 7.00 10*3/mm3 04/07/2025 9:50 AM [facility] Lymphocytes, Absolute 1.77 0.70 - 3.10 10*3/mm3 04/07/2025 9:50 AM [facility] Monocytes, Absolute 0.85 0.10 - 0.90 10*3/mm3 04/07/2025 9:50 AM [facility] Eosinophils, Absolute 0.18 0.00 - 0.40 10*3/mm3 04/07/2025 9:50 AM [facility] Basophils, Absolute 0.03 0.00 - 0.20 10*3/mm3 04/07/2025 9:50 AM [facility] Immature Grans, Absolute 0.05 0.00 - 0.05 10*3/mm3 04/07/2025 9:50 AM EDT [facility] nRBC 0.0 0.0 - 0.2 /100 WBC 04/07/2025 9:50 AM EDT [facility] Blood Venipuncture / Unknown 04/07/2025 9:10 AM EDT 04/07/2025 9:38 AM EDT us Jason Álvarez DO LAB BLOOD ORDERABLES Final Resul t [facility]
[address] [place] [address], * (ABNORMAL) Basic Metabolic Panel (04/07/2025 9:10 [...] Final Resul t [facility]
[address] [place] [address], * MRI Tibia Fibula Right With & [...] [place] 04/07/2025 9:58 AM EDT Workstation ID: [id number] Narrative 04/07/2025 9:58 AM EDT MRI TIBIA [...] [place] 04/07/2025 9:58 AM EDT Workstation ID: [id number] Sushil Dean Jr., MD IMG MRI ORDERABLES Mary Beth l Result * Heparin Anti-Xa (04/07/2025 1:42 AM EDT) [facility] Heparin Anti-Xa (UFH) 0.38 0.30 - 0.70 IU/ml 04/07/2025 2:14 AM EDT [facility] Blood Venipuncture / Unknown 04/07/2025 1:42 AM EDT 04/07/2025 1:54 AM EDT Chelsie Turpin [facility] LAB BLOOD ORDERABLES Final R esult [facility]
[address] [place] [address], * Heparin Anti-Xa (04/06/2025 7:16 PM EDT) [facility] Heparin Anti-Xa (UFH) 0.33 0.30 - 0.70 IU/ml 04/06/2025 7:50 PM EDT [facility] Blood Venipuncture / Unknown 04/06/2025 7:16 PM EDT 04/06/2025 7:35 PM EDT Cherri Beatty [facility] LAB BLOOD ORDERABLES Final Res ult Performing Organization Address [facility] Co de Phone Number [facility]
[address] [place] [address], * Potassium (04/06/2025 7:16 PM EDT) [facility] Potassium 4.0 3.5 - 5.2 mmol/L 04/06/2025 7:53 PM EDT [facility] Blood Venipuncture / Unknown 04/06/2025 7:16 PM EDT 04/06/2025 7:35 PM EDT Jason Álvarez DO LAB BLOOD ORDERABLES Final Resul t Performing Organization Address [facility] de Phone Number [facility]
[address] [place] [address], * (ABNORMAL) Heparin Anti-Xa (04/06/2025 12:36 PM EDT) [facility] Heparin Anti-Xa (UFH) 0.24(L) 0.30 - 0.70 IU/ml 04/06/2025 1:23 PM EDT [facility] Blood Venipuncture / Unknown 04/06/2025 12:36 PM EDT 04/06/2025 1:07 PM EDT Una Perla PharmD LAB BLOOD ORDERABLES Final R esult Performing Organization Address [facility] Co de Phone Number [facility]
[address] [place] [address], * (ABNORMAL) Heparin Anti-Xa (04/06/2025 3:42 AM EDT) [facility] Heparin Anti-Xa (UFH) 0.25(L) 0.30 - 0.70 IU/ml 04/06/2025 5:30 AM EDT [facility] Blood Venipuncture / Unknown 04/06/2025 3:42 AM EDT 04/06/2025 4:59 AM EDT Chelsie Dyana [facility] LAB BLOOD ORDERABLES Final R esult [facility]
[address] [place] [address], * (ABNORMAL) Basic Metabolic Panel (04/06/2025 3:42 AM EDT) [facility] Glucose 94 65 - 99 [...] 3:42 AM EDT 04/06/2025 5:20 AM EDT [facility]ORATORY - 04/06/2025 5:59 [...] Final Resul t [facility]
[address] [place] [address], * (ABNORMAL) CBC Auto Differential (04/06/2025 3:41 [...] 79.0 - 97.0 fL 04/06/2025 5:04 AM [facility] MCH 27.4 26.6 - 33.0 pg 04/06/2025 5:04 AM [facility] MCHC 31.8 31.5 - 35.7 g/dL 04/06/2025 5:04 AM [facility] RDW 12.8 12.3 - 15.4 % 04/06/2025 5:04 AM [facility] RDW-SD 40.0 37.0 - 54.0 fl 04/06/2025 5:04 AM [facility] MPV 11.7 6.0 - 12.0 fL 04/06/2025 5:04 AM [facility] Platelets 115(L) 140 - 450 10*3/mm3 04/06/2025 5:04 AM [facility] Neutrophil % 65.3 42.7 - 76.0 % 04/06/2025 5:04 AM [facility] Lymphocyte % 20.5 19.6 - 45.3 % 04/06/2025 5:04 AM [facility] Monocyte % 11.8 5.0 - 12.0 % 04/06/2025 5:04 AM [facility] Eosinophil % 1.8 0.3 - 6.2 % 04/06/2025 5:04 AM [facility] Basophil % 0.3 0.0 - 1.5 % 04/06/2025 5:04 AM [facility] Immature Grans % 0.3 0.0 - 0.5 % 04/06/2025 5:04 AM [facility] Neutrophils, Absolute 7.09(H) 1.70 - 7.00 10*3/mm3 04/06/2025 5:04 AM [facility] Lymphocytes, Absolute 2.23 0.70 - 3.10 10*3/mm3 04/06/2025 5:04 AM [facility] Monocytes, Absolute 1.28(H) 0.10 [...] Resul t Performing Organization Address City/[facility] Co de Phone Number [facility]
[address] [place] [address], [place] [phone] * Heparin Anti-Xa (04/05/2025 8:43 PM EDT) Pathologist [facility] Heparin Anti-Xa (UFH) 0.38 0.30 - 0.70 IU/ml 04/05/2025 9:09 PM EDT [facility] Blood Venipuncture / Unknown 04/05/2025 8:43 PM EDT 04/05/2025 8:55 PM EDT us Cherri Beatty [facility] LAB BLOOD ORDERABLES Final Res ult Performing Organization Address City/[facility] Co de Phone Number [facility]
[address] [place] [address], [place] [phone] * CK (04/05/2025 12:15 PM EDT) Creatine Kinase 140 20 - 200 U/L 04/05/2025 1:31 PM EDT [facility] Blood Venipuncture / Unknown 04/05/2025 12:15 PM EDT 04/05/2025 1:03 PM EDT Carlton Mead MD LAB BLOOD ORDERABLES Final R esult Performing Organization Address City/[facility]/ZIP Co de Phone Number [facility]
[address] [place] [address], * (ABNORMAL) Heparin Anti-Xa (04/05/2025 12:15 PM EDT) [facility] Heparin Anti-Xa (UFH) 0.17(L) 0.30 - 0.70 IU/ml 04/05/2025 1:21 PM EDT [facility] Blood Venipuncture / Unknown 04/05/2025 12:15 PM EDT 04/05/2025 1:04 PM EDT Una Perla PharmD LAB BLOOD ORDERABLES Final R esult Performing Organization Address City/[facility] Co de Phone Number [facility]
[address] [place] [address], * (ABNORMAL) aPTT (04/05/2025 3:54 AM EDT) [facility] PTT 35.3(L) 60.0 - 90.0 seconds 04/05/2025 4:31 AM EDT [facility] Blood Venipuncture / Unknown 04/05/2025 3:54 AM EDT 04/05/2025 4:15 AM EDT Narrative [facility] - 04/05/2025 4:31 AM EDT PTT = The equivalent PTT values for the therapeutic range of heparin levels at 0.3 to 0.5 U/ml are 60 to 70 seconds. [employer] LAB BLOOD ORDERABLES Final R esult [facility]
[address] [place] [address], * Heparin Anti-Xa (04/05/2025 3:54 AM EDT) Pathologist [facility] Heparin Anti-Xa (UFH) 0.30 0.30 - 0.70 IU/ml 04/05/2025 4:32 AM EDT [facility] Blood Venipuncture / Unknown 04/05/2025 3:54 AM EDT 04/05/2025 4:15 AM EDT [employer] LAB BLOOD ORDERABLES Final R esult Performing Organization Address City/[facility]/ZIP Co de Phone Number [facility]
[address] [place] [address], * (ABNORMAL) CBC Auto Differential (04/05/2025 3:54 AM EDT) [facility] WBC 11.18(H) 3.40 - 10.80 [...] 31.5 - 35.7 g/dL 04/05/2025 4:20 AM [facility] RDW 12.9 12.3 - 15.4 % 04/05/2025 4:20 AM [facility] RDW-SD 39.7 37.0 - 54.0 fl 04/05/2025 4:20 AM [facility] MPV 10.2 6.0 - 12.0 fL 04/05/2025 4:20 AM [facility] Platelets 160 140 - 450 10*3/mm3 04/05/2025 4:20 AM [facility] Neutrophil % 73.5 42.7 - 76.0 % 04/05/2025 4:20 AM [facility] Lymphocyte % 14.0(L) 19.6 - 45.3 % 04/05/2025 4:20 AM [facility] Monocyte % 11.0 5.0 - 12.0 % 04/05/2025 4:20 AM [facility] Eosinophil % 0.8 0.3 - 6.2 % 04/05/2025 4:20 AM [facility] Basophil % 0.3 0.0 - 1.5 % 04/05/2025 4:20 AM [facility] Immature Grans % 0.4 0.0 - 0.5 % 04/05/2025 4:20 AM [facility] Neutrophils, Absolute 8.23(H) 1.70 - 7.00 10*3/mm3 04/05/2025 4:20 AM [facility] Lymphocytes, Absolute 1.56 0.70 - 3.10 10*3/mm3 04/05/2025 4:20 AM [facility] Monocytes, Absolute 1.23(H) 0.10 - 0.90 10*3/mm3 04/05/2025 4:20 AM [facility] Eosinophils, Absolute 0.09 0.00 - 0.40 10*3/mm3 04/05/2025 4:20 AM [facility] Basophils, Absolute 0.03 [...] Final R esult [facility]
[address] [place] [address], * (ABNORMAL) Basic Metabolic Panel (04/05/2025 3:54 [...] 3:54 AM EDT 04/05/2025 4:15 AM EDT [facility] LABORATORY - 04/05/2025 4:40 [...] Final Re sult [facility]
[address] [place] [address], * (ABNORMAL) aPTT (04/05/2025 12:18 AM EDT) PTT 33.6(L) 60.0 - 90.0 seconds 04/05/2025 12:53 AM EDT [facility] Blood Venipuncture / Unknown 04/05/2025 12:18 AM EDT 04/05/2025 12:37 AM EDT [facility] LABORATORY - 04/05/2025 12:53 AM EDT PTT = The equivalent PTT values for the therapeutic range of heparin levels at 0.3 to 0.5 U/ml are 60 to 70 seconds. [employer] Pharm[employer] LAB BLOOD ORDERABLES Final R esult [facility]
[address] [place] [address], [place] [phone] * (ABNORMAL) Protime-INR (04/05/2025 12:18 AM EDT) Protime 15.9(H) 12.2 - 15.3 Seconds 04/05/2025 12:53 AM EDT [facility] INR 1.19(H) 0.89 - 1.12 04/05/2025 12:53 AM EDT [facility] Blood Venipuncture / Unknown 04/05/2025 12:18 AM EDT 04/05/2025 12:37 AM EDT [employer] Pharm[employer] LAB BLOOD ORDERABLES Final R esult Performing Organization Address [facility] Co de Phone Number [facility]
[address] [place] [address], [place] [phone] * Heparin Anti-Xa (04/05/2025 12:18 AM EDT) Pathologist [facility] Heparin Anti-Xa (UFH) 0.39 0.30 - 0.70 IU/ml 04/05/2025 12:54 AM EDT [facility] Blood Venipuncture / Unknown 04/05/2025 12:18 AM EDT 04/05/2025 12:37 AM EDT [facility] LAB BLOOD ORDERABLES Final R esult Performing Organization Address City/[facility]/ZIP Co de Phone Number [facility]
[address] [place] [address], [place] [phone] * MRI Tibia Fibula Right With & [...] MD 04/04/2025 11:00 PM EDT Workstation ID: [id number] Narrative 04/04/2025 11:00 PM EDT MRI TIBIA [...] MD 04/04/2025 11:00 PM EDT Workstation ID: [id number] Leonora Shepherd MD IMG MRI ORDERABLES Final Resu lt * POC Creatinine (04/04/2025 2:49 PM EDT) Creatinine 1.10 0.60 - 1.30 mg/dL 04/07/2025 7:14 PM EDT [facility] Comment:Serial Number: [id number] Venous Blood 04/04/2025 2:49 PM EDT 04/07/2025 7:14 PM EDT Jason Álvarez DO POINT OF CARE TEST ORDERABLES Fi nal Result [facility]
[address] [place] [address], [place] [phone] * (ABNORMAL) CBC Auto Differential (04/04/2025 2:47 PM EDT) [facility] Signature WBC 12.72(H) 3.40 - 10.80 [...] Fin al Result [facility]
[address] [place] [address], * (ABNORMAL) C-reactive Protein (04/04/2025 2:47 PM EDT) Pathologist [facility] C-Reactive Protein 8.57(H) 0.00 - 0.50 mg/dL 04/04/2025 3:26 PM EDT [facility] Blood Venipuncture / Unknown 04/04/2025 2:47 PM EDT 04/04/2025 2:52 PM EDT Mario Ortiz Keo LAB BLOOD ORDERABLES Fin al Result [facility]
[address] [place] [address], * (ABNORMAL) Sedimentation Rate (04/04/2025 2:47 PM EDT) [facility] Sed Rate 51(H) 0 - 15 mm/hr 04/04/2025 3:06 PM EDT [facility] Blood Venipuncture / Unknown 04/04/2025 2:47 PM EDT 04/04/2025 2:52 PM EDT Mario Ortiz Keo LAB BLOOD ORDERABLES Fin al Result Performing Organization Address City/[facility]/ZIP Co de Phone Number [facility]
[address] [place] [address], * Comprehensive Metabolic Panel (04/04/2025 2:47 PM EDT) [facility] Glucose 90 65 - 99 [...] - 10.5 mg/dL 04/04/2025 3:26 PM EDT [facility] Total Protein 7.3 6.0 - 8.5 g/dL 04/04/2025 3:26 PM EDT [facility] Albumin 4.1 3.5 - 5.2 g/dL 04/04/2025 3:26 PM EDT [facility] ALT (SGPT) 26 1 - 41 U/L 04/04/2025 3:26 PM EDT [facility] AST (SGOT) 25 1 - 40 U/L 04/04/2025 3:26 PM EDT [facility] Alkaline Phosphatase 106 39 - 117 U/L 04/04/2025 3:26 PM T [facility] Total Bilirubin 1.0 0.0 - 1.2 mg/dL 04/04/2025 3:26 PM EDT [facility] Globulin 3.2 gm/dL 04/04/2025 3:26 PM T [facility] Comment:Calculated Result A/G Ratio 1.3 g/dL 04/04/2025 3:26 PM EDT [facility] BUN/Creatinine Ratio 19.5 7.0 - 25.0 04/04/2025 3:26 PM T [facility] Anion Gap 10.7 5.0 - 15.0 mmol/L 04/04/2025 3:26 PM T [facility] eGFR 102.5 >60.0 mL/min/1.7 3 04/04/2025 3:26 PM [facility] Blood Venipuncture / [...] Fin al Result [facility]
[address] [place] [address], documented in this encounter Visit Diagnoses Diagnosis [...] KELL)1943 (Given - Provider: Anahy Marcelino, LITHOGRAPH DESIGNER)2129 (Canceled Entry - Provider: Anahy Marcelino LITHOGRAPH DESIGNER - Comment: previously given) 0837 (Given [...] thigh to rash. 1148 (Given - Provider: Shilrey Hart RN)2026 (Given - Provider: Alberto Dillon [...] Continuous Medication Order 04/09/2025 04/10/2025 04/11/2025 heparin 19110 units/250 mL (100 units/mL) in 0.45 % [...] documented as of this encounter Care Teams Tassel Maker Relationship Specialty Start Date End Date Provider, [place] [address] PCP - General 05/09/23 documented as of this encounter
--- OUTSIDE RECORDS SUMMARY | 2025-04-08 15:34 | XMS_ITS | Encounter Summary ---
Author Organization [facility] Address [address] [place] [address] Care Team Providers Care Propulsion Motor And Generator Repairer Name Role Phone Provider, No Known Primary Care Provider Unavail able Reason for Visit * Auth/Cert Specialty Diagnoses / Procedures Referred By Bulmaro muniz Referred To Contact Diagnoses Right BKA infection Referral ID Status Reason Start Date Expiration Date Visits Re quested Visits Authorized [id number] 1 1 Encounter Details Date Type Department Care Team (Late st Contact Info) Description 04/08/2025 3:34 PM EDT Anesthesia Event [facility] OR [address] [place] [address] Ulises Hoffman MD [address] [place] [address] Jairo Brooks MD [address] [place] [address] Anesthesia Record Procedure Summary Procedure Name Responsible [...] by Karol Albert, KAREN 04/08/25 1632 by Kraol Albert SRNA documented in this encounter Social History Tobacco Use Types Packs/Day Years Used Date Smoking Tobacco: Never Smokeless Tobacco: Never Alcohol Use Standard Drinks/Week Comments Not Currently 0 (1 standard drink = 0.6 oz pur e alcohol) [facility] Utilities Answer Date Recorded In the past 12 months has [employer], oil, or water [facility] threatened to shut off services in your [...] or training? Not on file Preferred Language Gabonese 04/07/2025 Sex and Gender Information Value Date Recorded Sex Assigned at Not on file Legal Sex Male 7:30 PM EDT Gender Identity Not on file Sexual Orientation Not on file documented as of this encounter OR Notes * Anesthesia Postprocedure Evaluation - Stan Casillas CRNA - 04/08/2025 4:40 PM EDT Patient: Won Dennis Procedure Summary Date: 04/08/25 Room / Location: [facility] OR [address] [place] [address] [facility] [place] Anesthesia Start: 1533 Anesthesia Stop: [...] ROS Abdominal Substance History - negative use RAIL SIGNAL MECHANIC negative closer on ROS Other Anesthesia Plan ASA 3 general [...] documented as of this encounter Care Teams Propulsion Motor And Generator Repairer Relationship Specialty Start Date End Date Provider, [place] [address] PCP - General 05/09/23 documented as of this encounter
--- OUTSIDE RECORDS SUMMARY | 2025-05-02 08:14 | XMS_ITS | Encounter Summary ---
Author Organization Healthcare Address [address] [place] [address] Care Team Providers Care Senior Net Developer Architect Name Role Phone Unavailable Primary Care Provider Unavailabl e Encounter Details Date Type Department Care Team (Late st Contact Info) Description 05/13/2023 Lab Requisition [facility] [address] [place] [address] Sushil Dean MD [address] [facility] [place] [address] Encounter for general adult medical examination without [...] Final Result Performing Organization Address [facility] Co de Phone Number [facility] [address] [place] [address] * Anaerobic Culture (05/13/2023 9:17 AM EDT) Culture No growth at day 4 05/20/2023 10:35 AM EST [facility] Bone 05/13/2023 9:17 AM EDT 05/13/2023 1:25 PM EDT us Sushil Dean MD LAB MICROBIOLOGY - GENERAL O RDERABLES Final Result Performing Organization Address [facility] de Phone Number [facility] [address] [place] [address] * Bone Culture and Gram Stain (05/13/2023 [...] Final Result Performing Organization Address [facility] de Phone Number [facility] [address] [place] [address] documented in this encounter Visit Diagnoses Diagnosis Encounter for general adult medical examination without abnormal findings documented in this encounter
--- OUTSIDE RECORDS SUMMARY | 2025-05-02 08:14 | XMS_ITS | Encounter Summary ---
Author Organization Healthcare Address [address] [place] [address] Care Team Providers Care Storage Receipt Poster Name Role Phone Unavailable Primary Care Provider Unavailabl e Encounter Details Date Type Department Care Team (Late st Contact Info) Description 10/19/2022 Lab Requisition [facility] [address] [place] [address] Sushil Dean MD [address] [place] [address] Encounter for general adult medical examination without [...] by MALDI tof mass spectrometry using the [employer] database and is for research use only. The organism value for this result has been updated. These results have been appended to the previously preliminary verified report. Bone Specimen from bone / Unknown 10/19/2022 5:17 PM EDT 10/19/2022 9:49 PM EDT Sushil Dean MD LAB MICROBIOLOGY - GENERAL O RDERABLES Final Result Performing Organization Address [facility] de Phone Number HEALTHCARE LAB [address] [place] [phone] * Bone Culture and Gram Stain (10/19/2022 5:17 PM EDT) Culture No growth at day 4 2022 8:14 AM EDT [facility] Gram Stain Result Few Polymorphonuclear leukocytes 10/23/2022 8:14 AM EDT [facility] Gram Stain Result No organisms seen 10/23/2022 8:14 AM EDT [facility] Bone Specimen from bone / Unknown 10/19/2022 5:17 PM EDT 10/19/2022 9:49 PM EDT Sushil Dean MD LAB MICROBIOLOGY - GENERAL O RDERAADDI Final Result Performing Organization Address [facility] Phone Number [facility]ALTH[facility]ARE [facility] [address] [place] [address] documented in this encounter Visit Diagnoses Diagnosis Encounter for general adult medical examination without abnormal findings documented in this encounter
--- OUTSIDE RECORDS SUMMARY | 2025-05-02 08:14 | XMS_ITS | Encounter Summary ---
Author Organization Healthcare Address [address] [place] [address] Care Team Providers Care Activity Therapy Specialist Name Role Phone Unavailable Primary Care Provider Unavailabl e Encounter Details Date Type Department Care Team (Late st Contact Info) Description 10/01/2022 Lab Requisition [facility] [address] [place] [address] Sushil Daen MD [address] [facility] [place] [address] Encounter for general adult medical examination without [...] has been identified using the FDA Approved [employer] [place] System The organism value for this [...] 10/04/2022 2:17 PM EDT Refer to culture [id number] FOR SUSCEPTIBILITIES ON NEELIMA ALBICANS us Sushil Dean MD LAB MICROBIOLOGY - GENERAL O RDERABLES Final Result [facility] [address] [place] [address] documented in this encounter Visit Diagnoses Diagnosis Encounter for general adult medical examination without abnormal findings documented in this encounter
--- OUTSIDE RECORDS SUMMARY | 2025-05-02 08:14 | XMS_ITS | Encounter Summary ---
Author Organization [facility] Address [address] [place] [address] Care Team Providers Care Bilingual Teacher Name Role Phone Unavailable Primary Care Provider Unavailabl e Encounter Details Date Type Department Care Team (Late st Contact Info) Description 10/03/2022 Lab Requisition [facility] [address] [place] [address] Dalila Cox MD [address] [place], [place] [id number] Encounter for general adult medical examination without [...] Culture Neelima albicans(A) 10/05/2022 11:58 AM EDT [facility] Comment: This result was determined by MALDI tof Mass spectrometry. This assay was developed and its performance characteristics determined by [facility] as appropriate for clinical purposes. [...] Edited Result - Final [facility] [address] [place] [address] documented in this encounter Visit Diagnoses Diagnosis Encounter for general adult medical examination without abnormal findings documented in this encounter
--- OUTSIDE RECORDS SUMMARY | 2025-05-02 08:14 | XMS_ITS | Encounter Summary ---
Author Organization Healthcare Address [address] [place] [address] Care Team Providers Care Vulcanizer Name Role Phone Unavailable Primary Care Provider Unavailabl e Encounter Details Date Type Department Care Team (Late st Contact Info) Description 07/20/2022 Lab Requisition [facility] [address] [place] [address] Sushil Dean MD [address] [place] [address] Encounter for general adult medical examination without [...]
--- OUTSIDE RECORDS SUMMARY | 2025-05-02 08:14 | XMS_ITS | Clinical Summary ---
Author Organization [facility] Address [address] [place] [address] Care Team Providers Care Axle Polisher Name Role Phone Provider, No Known [...] Discontinue d(Stop Taking at Discharge) Lactobacillus- Inulin ([facility]) capsule Take 200 mg by mouth Daily. [...] Description 04/08/2025 3:34 PM EDT [place]est[place] [facility] [place] [place] [address] [place] [phone] Ulises Hoffman MD Wells, Jeremy B., MD 04/08/2025 2:45 PM EDT - 04/08/2025 4:04 PM EDT Surgery [facility] OR [address] [place] [address] Sushil Dean Jr., MD LEG DEBRIDEMENT AND IRRIGATION 04/07/2025 8:36 PM EDT Anesthesia Event [facility] [place] [address] [place] [address] Luci Alonso DO 04/07/2025 6:00 PM EDT - 04/07/2025 6:52 PM EDT Surgery [facility] OR [address] [place] [address] Sushil Dean Jr., MD LEG DEBRIDEMENT, IRRIGATION 04/04/2025 4:10 PM EDT - 04/11/2025 1:58 PM EDT Hospital Encounter [facility] 5G [address] [place] [address] Mario Crowley DO Anderson, Laurie, [...] Recorded In the past 12 months has [employer], gas, oil, or water [employer] threatened to shut off services in your [...] this topic Medical Devices Implanted Type Area Hoseman Device Identifier Shelf Expiration Date Model / Serial / Lot Dev Wnd/Cls Contrl Tiss Stratafix Spiral Pls Pds Ct1 0 22cm - [id number] Implanted:Qty: 1 on 04/08/2025 by Sushil Dean Jr., MD at [facility] Implant Right: Leg [employer] 12/07/2025 [id number] / / [id number] Procedures Procedure Name Priority [...] - 10.80 10*3/mm3 04/11/2025 4:02 AM EDT [facility] RBC 4.70 4.14 - 5.80 10*6/mm3 04/11/2025 4:02 AM EDT [facility] Hemoglobin 12.8(L) 13.0 - 17.7 g/dL 04/11/2025 4:02 AM EDT [facility] Hematocrit 40.5 37.5 - 51.0 % 04/11/2025 4:02 AM EDT [facility] MCV 86.2 79.0 - 97.0 fL 04/11/2025 4:02 AM EDT [facility] MCH 27.2 26.6 - 33.0 pg 04/11/2025 4:02 AM EDT [facility] MCHC 31.6 31.5 - 35.7 g/dL 04/11/2025 4:02 AM EDT [facility] RDW 12.9 12.3 - 15.4 % 04/11/2025 4:02 AM EDT [facility] RDW-SD 40.5 37.0 - 54.0 fl 04/11/2025 4:02 AM EDT [facility] MPV 9.2 6.0 - 12.0 fL 04/11/2025 4:02 AM EDT [facility] Platelets 267 140 - 450 10*3/mm3 04/11/2025 4:02 AM EDT [facility] Neutrophil % 59.5 42.7 - 76.0 % 04/11/2025 4:02 AM EDT [facility] Lymphocyte % 26.3 19.6 - 45.3 % 04/11/2025 4:02 AM EDT [facility] Monocyte % 9.3 5.0 - 12.0 % 04/11/2025 4:02 AM [facility] Eosinophil % 4.1 0.3 - 6.2 % 04/11/2025 4:02 AM EDT [facility] Basophil % 0.4 0.0 - 1.5 % 04[facility] Immature Grans % 0.4 0.0 - 0.5 % 04/11/2025 4:02 AM [facility] Neutrophils, Absolute 4.69 1.70 - 7.00 10*3/mm3 04/11/2025 4:02 AM [facility] Lymphocytes, Absolute 2.07 0.70 - 3.10 10*3/mm3 04/11/2025 4:02 AM [facility] Monocytes, Absolute 0.73 0.10 - 0.90 10*3/mm3 04/11/2025 4:02 AM [facility] Eosinophils, Absolute 0.32 0.00 - 0.40 10*3/mm3 04/11/2025 4:02 AM [facility] Basophils, Absolute 0.03 0.00 - 0.20 10*3/mm3 04/11/2025 4:02 AM [facility] Immature Grans, Absolute 0.03 0.00 - 0.05 10*3/mm3 04/11/2025 4:02 AM [facility] nRBC 0.0 0.0 - 0.2 /100 WBC 04/11/2025 4:02 AM [facility] Blood Venipuncture / Unknown 04/11/2025 3:40 AM EDT 04/11/2025 3:59 AM EDT Sushil Dean Jr., MD LAB BLOOD ORDERABLES Fi nal Result [facility]
[address] [place] [address], * (ABNORMAL) Comprehensive Metabolic Panel (04/11/2025 3:40 AM EDT) Only the most recent of2 resultswithin the time period is included. Glucose 108(H) 65 - 99 mg/dL 04/11/2025 4:19 AM EDT [facility] BUN 12.5 6.0 - 20.0 mg/dL 04/11/2025 4:19 AM EDT [facility] Creatinine 0.68(L) 0.76 - 1.27 mg/dL 04/11/2025 4:19 AM EDT [facility] Sodium 140 136 - 145 mmol/L 04/11/2025 4:19 AM EDT [facility] Potassium 3.8 3.5 - 5.2 mmol/L 04/11/2025 4:19 AM EDT [facility] Chloride 105 98 - 107 mmol/L 04/11/2025 4:19 AM EDT [facility] CO2 28.2 22.0 - 29.0 mmol/L 04/11/2025 4:19 AM EDT [facility] Calcium 8.2(L) 8.6 - 10.5 mg/dL 04/11/2025 4:19 AM EDT [facility] Total Protein 6.1 6.0 - 8.5 g/dL 04/11/2025 4:19 AM EDT [facility] Albumin 3.1(L) 3.5 - 5.2 g/dL 04/11/2025 4:19 AM EDT [facility] ALT (SGPT) 52(H) 1 - 41 U/L 04/11/2025 4:19 AM EDT [facility] AST (SGOT) 40 1 - 40 U/L 04/11/2025 4:19 AM EDT [facility] Alkaline Phosphatase 99 39 - 117 U/L 04/11/2025 4:19 AM EDT [facility] Total Bilirubin 0.2 0.0 - 1.2 mg/dL 04/11/2025 4:19 AM EDT [facility] Globulin 3.0 gm/dL 04/11/2025 4:19 AM EDT [facility] Comment:Calculated Result A/G Ratio 1.0 g/dL 04/11/2025 4:19 AM EDT [facility] BUN/Creatinine Ratio 18.4 7.0 - 25.0 04/11/2025 4:19 AM EDT [facility] Anion Gap 6.8 5.0 - 15.0 mmol/L 04/11/2025 4:19 AM EDT [facility] eGFR 117.5 >60.0 mL/min/1.7 3 04/11/2025 4:19 AM EDT [facility] Blood Venipuncture / [...] race as a factor us Rosario Hill TRANSPORTATION MAINTENANCE SPECIALIST LAB BLOOD ORDERABLES Final Result [facility]
[address] [id number], * Heparin Anti-Xa (04/10/2025 3:46 AM EDT) Only the most recent of13 resultswithin the time period is included. Heparin Anti-Xa (UFH) 0.35 0.30 - 0.70 IU/ml 04/10/2025 4:23 AM EDT [facility] Blood Venipuncture / Unknown 04/10/2025 3:46 AM EDT 04/10/2025 3:53 AM EDT Larisa Hamilton [facility] LAB BLOOD ORDERABLES Final R esult [facility]
[address] [place] [address], * (ABNORMAL) Basic Metabolic Panel (04/10/2025 3:46 AM EDT) Only the most recent of6 resultswithin the time period is included. [facility] Glucose 125(H) 65 - 99 mg/dL 04/10/2025 4:20 AM EDT [facility] BUN 15.9 6.0 - 20.0 mg/dL 04/10/2025 4:20 AM EDT [facility] Creatinine 0.77 0.76 - 1.27 mg/dL 04/10/2025 4:20 AM EDT [facility] Sodium 137 136 - 145 mmol/L 04/10/2025 4:20 AM EDT [facility] Potassium 3.9 3.5 - 5.2 mmol/L 04/10/2025 4:20 AM EDT [facility] Chloride 102 98 - 107 mmol/L 04/10/2025 4:20 AM EDT [facility] CO2 26.9 22.0 - 29.0 mmol/L 04/10/2025 4:20 AM EDT [facility] Calcium 7.9(L) 8.6 - 10.5 mg/dL 04/10/2025 4:20 AM EDT [facility] BUN/Creatinine Ratio 20.6 7.0 - 25.0 04/10/2025 4:20 AM EDT [facility] Anion Gap 8.1 5.0 - 15.0 mmol/L 04/10/2025 4:20 AM EDT [facility] eGFR 113.2 >60.0 mL/min/1.7 3 04/10/2025 4:20 AM EDT [facility] Blood Venipuncture / Unknown 04/10/2025 3:46 AM EDT 04/10/2025 3:52 AM EDT Narrative [facility] - 04/10/2025 4:20 AM [...] DO LAB BLOOD ORDERABLES Final Resul t [facility]
[address] [place] [address], * Wound Culture - Swab, Leg, Right (04/08/2025 3:40 PM EDT) Only the most recent of3 resultswithin the time period is included. Wound Culture No growth at 3 days ALIZA 04/11/2025 10:40 AM EDT [facility] Gram Stain Few (2+) WBCs seen 04/11/2025 10:40 AM EDT [facility] Gram Stain No organisms seen 04/11/2025 10:40 AM EDT [facility] Swab Structure of right lower limb / Unknown 04/08/2025 3:40 PM EDT 04/08/2025 8:05 PM EDT Sushil Dean Jr., MD MICROBIOLOGY - GENERAL ORDERABLES Final Result Performing Organization Address City/[facility]/ZIP Co de Phone Number [facility]
[address] [place] [address], [facility]
[address] [place] [address], [place] [phone] * Anaerobic Culture - Swab, Leg, Right [...] ORDERABLES Final Result Performing Organization Address [facility] Co de Phone Number [facility]
[address] [place] [address], * Scan Slide (04/08/2025 8:41 AM EDT) RBC Morphology Normal Normal 04/08/2025 11:02 AM EDT [facility] WBC Morphology Normal Normal 04/08/2025 11:02 AM EDT [facility] Platelet Estimate Adequate Normal 04/08/2025 11:02 AM EDT [facility] Clumped Platelets Present None Seen 04/08/2025 11:02 AM EDT [facility] Blood Venipuncture / Unknown 04/08/2025 8:41 AM EDT 04/08/2025 9:10 AM EDT Una Perla PharmD LAB BLOOD ORDERABLES Final R esult Performing Organization Address City/[facility]/ZIP Co de Phone Number [facility]
[address] [place] [address], [place] [phone] * FL C Arm During Surgery (04/07/2025 [...] (1+) WBCs seen 04/11/2025 10:36 AM EDT [facility] Gram Stain No organisms seen 04/11/2025 10:36 AM EDT [facility] Tissue Structure of right lower limb / Unknown 04/07/2025 9:13 PM EDT 04/08/2025 4:54 AM EDT us Sushil Dean Jr., MD MICROBIOLOGY - GENERAL ORDERABLES Final Result [facility]
[address] [place] [address], [facility]
[address] [place] [address], * BH AN ETT AIRWAY (04/07/2025 8:44 [...] [place] 04/07/2025 9:58 AM EDT Workstation ID: [id number] Narrative 04/07/2025 9:58 AM EDT MRI TIBIA [...] [place]enrostro 04/07/2025 9:58 AM EDT Workstation ID: [id number] Sushil Dean Jr., MD IMG MRI ORDERABLES Mary Beth l Result * Potassium (04/06/2025 7:16 PM EDT) Potassium 4.0 3.5 - 5.2 mmol/L 04/06/2025 7:53 PM EDT [facility] Blood Venipuncture / Unknown 04/06/2025 7:16 PM EDT 04/06/2025 7:35 PM EDT Jason Álvarez DO LAB BLOOD ORDERABLES Final Resul t Performing Organization Address City/[facility]/ZIP Co de Phone Number [facility]
[address] [place] [address], * CK (04/05/2025 12:15 PM EDT) Creatine Kinase 140 20 - 200 U/L 04/05/2025 1:31 PM EDT [facility] Blood Venipuncture / Unknown 04/05/2025 12:15 PM EDT 04/05/2025 1:03 PM EDT Carlton Mead MD LAB BLOOD ORDERABLES Final R esult Performing Organization Address City/[facility]/ZIP Co de Phone Number [facility]
[address] [place] [address], * (ABNORMAL) aPTT (04/05/2025 3:54 AM EDT) Only the most recent of2 resultswithin the time period is included. PTT 35.3(L) 60.0 - 90.0 seconds 04/05/2025 4:31 AM EDT [facility] Blood Venipuncture / Unknown 04/05/2025 3:54 AM EDT 04/05/2025 4:15 AM EDT Narrative [facility] - 04/05/2025 4:31 AM EDT PTT = The equivalent PTT values for the therapeutic range of heparin levels at 0.3 to 0.5 U/ml are 60 to 70 seconds. [employer] LAB BLOOD ORDERABLES Final R esult Performing Organization Address City/[facility]/ZIP Co de Phone Number [facility]
[address] [place] [address], * (ABNORMAL) Protime-INR (04/05/2025 12:18 AM EDT) Pathologist [facility] Protime 15.9(H) 12.2 - 15.3 Seconds 04/05/2025 12:53 AM EDT [facility] INR 1.19(H) 0.89 - 1.12 04/05/2025 12:53 AM EDT [facility] Blood Venipuncture / Unknown 04/05/2025 12:18 AM EDT 04/05/2025 12:37 AM EDT [employer] LAB BLOOD ORDERABLES Final R esult Performing Organization Address City/[facility]/ZIP Co de Phone Number [facility]
[address] [place] [address], * POC Creatinine (04/04/2025 2:49 PM EDT) Pathologist [facility] Creatinine 1.10 0.60 - 1.30 mg/dL 04/07/2025 7:14 PM EDT [facility] Comment:Serial Number: [id number] 7Operator: [id number] Venous Blood 04/04/2025 2:49 PM EDT 04/07/2025 7:14 PM EDT Jason Álvarez DO POINT OF CARE TEST ORDERABLES Fi nal Result Performing Organization Address [facility] Co de Phone Number [facility]
[address] [place] [address], * (ABNORMAL) Sedimentation Rate (04/04/2025 2:47 PM EDT) Sed Rate 51(H) 0 - 15 mm/hr 04/04/2025 3:06 PM EDT [facility] Blood Venipuncture / Unknown 04/04/2025 2:47 PM EDT 04/04/2025 2:52 PM EDT Mario Crowley LAB BLOOD ORDERABLES Fin al Result Performing Organization Address [facility] de Phone Number [facility]
[address] [place] [address], * (ABNORMAL) C-reactive Protein (04/04/2025 2:47 PM EDT) C-Reactive Protein 8.57(H) 0.00 - 0.50 mg/dL 04/04/2025 3:26 PM EDT [facility] Blood Venipuncture / Unknown 04/04/2025 2:47 PM EDT 04/04/2025 2:52 PM EDT Mario Crowley DO LAB BLOOD ORDERABLES Fin al Result Performing Organization Address [facility] Co de Phone Number [facility]
[address] [place] [address], from Last 3 Months Additional Health Concerns [...] Of Support Discussed With: Patient Care Teams Axle Polisher Relationship Specialty Start Date End Date Provider, No Known [facility] [place] [address] PCP - General 05/09/23
--- OUTSIDE RECORDS SUMMARY | 2025-05-02 08:14 | XMS_ITS | Clinical Summary ---
Author Organization [facility] Address [address] [place] [address] Phone Care Team Providers Care Vehicle Body Maker Name Role Phone Unavailable Unavailable Conditions or Problems No information available. Medications No information available. Medications Administered No information available. Allergies, Adverse Reactions, Alerts No information available. Results No information available. Plan of Care No information available. Procedures No information available. Vital Signs No information available. Immunizations No information available. Advance Directives No information available.
--- OUTSIDE RECORDS SUMMARY | 2025-05-02 08:16 | XMS_ITS | Encounter Summary ---
Author Organization Healthcare Address [address] [place] [address] Care Team Providers Care Tarp Repairer Name Role Phone Unavailable Primary Care Provider Unavailabl e Encounter Details Date Type Department Care Team (Late st Contact Info) Description 07/20/2022 Lab Requisition [facility] [address] [place] [address] Sushil Dean MD [address] [place] [address] Encounter for general adult medical examination without [...] at day 4 07/27/2022 11:32 AM EST [facility] Bone Specimen from bone / Unknown 07/20/2022 1:36 PM EST 07/20/2022 5:52 PM EST us Suhsil Dean MD LAB MICROBIOLOGY - GENERAL O RDERABLES Final Result Performing Organization Address City/[facility] Co de Phone Number [facility]ALTHCARE [facility] [address] [place] [address] * Bone Culture and Gram Stain (07/20/2022 1:36 PM EST) Culture No growth at day 4 2022 9:16 AM EST [facility] Gram Stain Result Rare Polymorphonuclear leukocytes 07/24/2022 9:16 AM EST [facility] Gram Stain Result No organisms seen 07/24/2022 9:16 AM EST [facility] Bone Specimen from bone / Unknown 07/20/2022 1:36 PM EST 07/20/2022 5:52 PM EST us Sushil Dean MD LAB MICROBIOLOGY - GENERAL O RDERABLES Final Result Performing Organization Address City/[facility] Co de Phone Number [facility] [address] [place] [address] documented in this encounter Visit Diagnoses Diagnosis Encounter for general adult medical examination without abnormal findings documented in this encounter
--- OUTSIDE RECORDS SUMMARY | 2025-05-02 08:16 | XMS_ITS | Encounter Summary ---
Author Organization Healthcare Address [address] [place] [address] Care Team Providers Care Administrative Support Clerk Name Role Phone Unavailable Primary Care Provider Unavailabl e Encounter Details Date Type Department Care Team (Late st Contact Info) Description 08/12/2022 Lab Requisition [facility] [address] [place] [address] Sushil Dean MD [address] [place] [address] Encounter for general adult medical examination without [...] has been identified using the FDA Approved Siminarser CA System The organism value for this [...] O ERIC Final Result Performing Organization Address City/[facility] de Phone Number HEALTHCARE [facility] [address] [place] [address] * Bone Culture and Gram Stain (08/12/2022 [...] O RDERABLES Final Result Performing Organization Address City/[facility] de Phone Number [email or web address] [address] [place] [address] documented in this encounter Visit Diagnoses Diagnosis Encounter for general adult medical examination without abnormal findings documented in this encounter
--- OUTSIDE RECORDS SUMMARY | 2025-05-02 08:16 | XMS_ITS | Encounter Summary ---
Author Organization [facility] Address [address] [place] [address] Care Team Providers Care Box Person Name Role Phone Provider, No Known [...] 2:25 PM EDT Cherri Grimm RN * [place] Suicide Severity Rating Scale (Screener/Recent Self-Report) Question [...] documented as of this encounter Care Teams Box Person Relationship Specialty Start Date End Date Provider, No Known [facility] [place] [address] PCP - General 05/09/23 documented as of this encounter
--- OUTSIDE RECORDS SUMMARY | 2025-05-02 08:17 | XMS_ITS | Encounter Summary ---
Author Organization Healthcare Address [address] [place] [address] Care Team Providers Care Automobile Rental Agent Name Role Phone Unavailable Primary Care Provider Unavailabl e Encounter Details Date Type Department Care Team (Late st Contact Info) Description 05/17/2023 Lab Requisition [facility] [address] [place] [address] Sushil Dean MD [address] [facility] [address] [place] [address] Encounter for general adult medical examination without [...] O RDERABLES Final Result Performing Organization Address City/[facility] Co de Phone Number [facility] [address] [place] [address] * Bone Culture and Gram Stain (05/17/2023 [...] O RDERABLES Final Result Performing Organization Address [facility] Co de Phone Number [facility] [address] [place] [address] documented in this encounter Visit Diagnoses Diagnosis Encounter for general adult medical examination without abnormal findings documented in this encounter
--- OUTSIDE RECORDS SUMMARY | 2025-05-02 08:19 | XMS_ITS | Clinical Summary ---
Author Organization Healthcare Address [address] [place] [address] Care Team Providers Care Field Contractor Name Role Phone Unavailable Primary Care Provider [...]
[2025-05-02 08:20] VITALS: BP 110/75; PULSE 71; RESP 16; O2SAT 95
[2025-05-02] MEDS: DAPTOmycin 1,000 MG in 0.9 % SODIUM CHLORIDE 50 ML 100 MG IV (08:20)
[2025-05-02 08:55] VITALS: BP 126/70; PULSE 72; RESP 17
== END 2025-05-02 23:59 | disposition home or self-care (01) ==
LOC: INF 08:08
PROVIDERS: PCP Nurse Practitioner Family; Visit Provider Internal Medicine Infectious Disease
DX: M86.9 Osteomyelitis, unspecified (principal); B95.62 Methicillin resistant Staphylococcus aureus infection as the cause of diseases classified elsewhere
CPT/HCPCS: 96365; J0878

== ENCOUNTER 2025-05-03 07:49 | Outpatient (CLI) | payer MEDICARE, SELFPAY ==
--- OUTSIDE RECORDS SUMMARY | 2023-12-12 05:00 | XMS_ITS ---
Author Organization Ayaka Address 1210 [facility] 36 [facility] 2C [place] [phone] Care Team Providers Care Head Machinist Name Role Phone Zeeshan Salazar Primary Care Provider [phone] Macario Burkett [phone] REASON FOR VISIT 6 Month Check Up Encounters Encounter Location Date Provider Diagnosis [place] 1210 [facility] [address] [place] [phone] 12/12/2023 Macario Burkett Plan Of Treatment No Information Progress Notes * Won MEDRANO ZeeshanDOB: [birth year] (44 yo M)Acc No.[id number]:12/12/2023 Progress Notes Patient: Won SPANN Provider: Colleen Burkett M.D. :1980 A ge:43 Y S ex:Male Date:12/12/2023 Address:[address] [place] [address] On[id number] Pcp:Zeeshan Salazar Subjective: * Chief Complaints: * 1 . 6 Month Check Up. * Medical History: Objective: * Vitals: Assessment: Plan: * Treatment: * Images: Billing Information: * Visit Code: * Procedure Codes: * Electronic signature of Micaela Burkett MD on 05/03/2025 at 07:52 AM EDT Sign off status: Pending * Provider: Colleen Burkett M.D. Date: 12/12/2023 Generated for Nany jorgensen/Elaine/Pro on: 1 07:52 AM EDT
--- OUTSIDE RECORDS SUMMARY | 2025-04-04 16:10 | XMS_ITS | Encounter Summary ---
Author Organization [facility] Address [address] [place] [address] Care Team Providers Care Public Service Representative Name Role Phone Provider, No Known Primary Care Provider Unavail able Reason for Visit * Reason Comments Leg Swelling * Auth/Cert Specialty Diagnoses / Procedures Referred By Contlevy t Referred To Contact Diagnoses Right BKA infection Referral ID Status Reason Start Date Expiration Date Visits Re quested Visits Authorized [id number] 1 1 Encounter Details Date Type Department Care Team (Late st Contact Info) Description 04/04/2025 4:10 PM EDT - 04/11/2025 1:58 PM EDT Hospital Encounter [address] [place] [address] Mario Crowley, [address] [place] [address] Leonora Shepherd MD [address] [address] Jason Álvarez DO [address] [address] Jadyn Richardson DO [address] [address] Cellulitis of right lower extremity (Primary Dx); Below-knee amputation of right lower extremity, initial encounter; Right BKA infection Discharge Disposition: Home or Self Care Social History Tobacco Use Types Packs/Day Years Used Date Smoking Tobacco: Never Smokeless Tobacco: Never Tobacco Cessation:Counseling Given: Not Answered Alcohol Use Standard Drinks/Week Comments Not Currently 0 (1 standard drink = 0.6 oz pur e alcohol) [facility] Utilities Answer Date Recorded In the past 12 months has th e [facility], gas, oil, or water company threatened to [...] or training? Not on file Preferred Language Kittitian 04/07/2025 Sex and Gender Information Value Date [...] 2:25 PM EDT Cherri Grimm RN * [place] Suicide Severity Rating Scale (Screener/Recent Self-Report) Question [...] from the original note were not included. [facility] DISCHARGE SUMMARY Patient Name: [...] Date/Time Wound Culture - Swab, Leg, Right [[id number]] (Abnormal) (Susceptibility) Collected: 04/07/252106 Lab Status: Final [...] Units Date/Time FL C Arm During Surgery [[id number]] Resulted: 04/07/252137 Updated: 04/07/252137 Narrative: This procedure was auto-finalized with no dictation required. MRI Tibia Fibula Right With & Without Contrast [[id number]] Collected: 04/07/25 0938 Updated: 04/07/25 1001 Narrative: [...] Buenrostro 04/07/2025 9:58 AM EDT Workstation ID: [id number] MRI Tibia Fibula Right With & Without Contrast [[id number]] Collected: 04/04/252256 Updated: 04/04/252302 Narrative: MRI TIBIA [...] represent a small area of phlegmonous change ([id number] image 10) measuring approximately 1.6 cm which [...] MD 04/04/2025 11:00 PM EDT Workstation ID: [id number] Pending Labs Order Current Status Fungus Culture [...] FLOMAX 1 capsule, Nightly Stop These Medications [facility] capsule doxycycline 100 MG tablet Commonly [...] Male) Date of 1980 Social Security Number [id number] [place] [address] [place] Unknown Marital Status Unknown Admission Date 04/04/2025 Admission Type Emergency Admitting Provider Jadyn Richardson DO Attending Provider Jadyn Richardson DO Department, Room/Bed [address], S565/1 Discharge Date Discharge Disposition Discharge [...] Group [place] [id number] Payor Plan Address Payor Plan Phone Number Payor Plan Fax Number Effective Dates [employer] [address] [address] 08/10/2023 - None Entered [place] [address] Subscriber Name Subscriber Date Member ID WON DENNIS 1980 [id number] Emergency Contacts 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.) Home Phone Work Phone Mobile Phone Avril Dennis (Spouse) -- -- [phone] LewRobert (Relative) -- -- [phone] [facility] [address] Patient: ROOM: [facility] Won eDnnis [address] [facility] [place] [address] : 1980 SSN: [id number] Sex: M PCP: Provider, No Known Emergency Contact Information Name Relation Home Work Mobile Avril Dennis Spouse [phone] Other Contacts Name Relation Home Work Mobile Robert Hackett Relative [phone] INSURANCE PAYOR PLAN GROUP # SUBSCRIBER ID Primary: Secondary: MEDICARE [place] [id number] Admitting Diagnosis: 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] Order Date: Apr 09, 2025 Case Management Clinical Molecular Geneticist Consult (Order ID: [id number]) Diagnosis: Priority: Routine Expected Date: Expiration Date: Interval: Once Count: Comments: Outpatient orders: 1. Outpatient intravenous antibiotic therapy: Daptomycin 800 mg IV daily to be supplied by [facility] 2. Home health to perform [...] INFECTIOUS DISEASE Progress Note Won Dennis 1980 [id number] Date of Consult: 04/10/2025 Admission Date: 04/04/2025 [...] which prompted him to seek treatment at [facility]. He is known to Dr. Dean. [...] HDS, on Heparin gtt. Currently [facility] has been asked to manage the [...] Jr., MD, 20 mg at 04/09/25906 heparin 97766 units/250 mL (100 units/mL) in 0.45 % [...] Units Date/Time FL C Arm During Surgery [[id number]] Resulted: 04/07/252137 Updated: 04/07/252137 Narrative: This procedure was auto-finalized with no dictation required. MRI Tibia Fibula Right With & Without Contrast [[id number]] Collected: 04/07/25 0938 Updated: 04/07/25 1001 Narrative: [...] Chitra 04/07/2025 9:58 AM EDT Workstation ID: [id number] Impression: Recurrent Right BKA stump abscess/cellulitis- this [...] discussed his disposition with the pharmacist at [facility] today. I will sign off Outpatient orders: 1. Outpatient intravenous antibiotic therapy: Daptomycin 800 mg IV daily to be supplied by [facility] 2. Home health to perform weekly PICC [...] Time: 04/10/251323 Signed Expand All Collapse All [facility] PROGRESS NOTE Patient Name: [...] Date/Time Wound Culture - Swab, Leg, Right [[id number]] (Abnormal) (Susceptibility) Collected: 04/07/252106 Lab Status: Final [...] Row Name 04/06/25 1143 Sit-Stand Transfer Sit-Stand Mccone (Transfers) modified independence -LM Comment, (Sit-Stand Transfer) Pt stood from recliner. Not holding onto walker, pt able to pull his pants up while balancing on his one leg. -LM Row Name 04/06/25 1143 Gait/Stairs (Locomotion) Mccone Level (Gait) modified independence -LM Distance in [...] Nurse Physical Therapy Education Title: PT OT COMMERCIAL REAL ESTATE BROKER Therapies (Done) Topic: Physical Therapy (Done) Point: [...] Description Service Date Service Provider Modifiers Qty [id number] PT EVAL LOW COMPLEXITY 3 04/06/2025 Susan [...] mg Daily 04/05/2025 -- Route: Oral heparin 51141 units/250 mL (100 units/mL) in 0.45 % [...] -- Admin Instructions: Open Order & Select [facility] Electrolyte Replacement Protocol Algorithm to [...] Dean MD April 21 vs April 22 [facility] [address], [address] [facility], [address] Please schedule at [phone] VONDA Garcia 04/11/25 08:32 EDT Cosigned by Sushil Dean Jr., MD at 04/19/2025 10:33 AM EDT Associated attestation - Sushil Dean Jr., MD - 04/19/2025 10:33 AM EDT I have reviewed this documentation and agree. * Rosario Hill APRN - 04/10/2025 1:24 PM EDT Images from the original note were not included. [facility] PROGRESS NOTE Patient Name: [...] Date/Time Wound Culture - Swab, Leg, Right [[id number]] (Abnormal) (Susceptibility) Collected: 04/07/252106 Lab Status: Final [...] mg Daily 04/05/2025 -- Route: Oral heparin 55829 units/250 mL (100 units/mL) in 0.45 % [...] -- Admin Instructions: Open Order & Select [facility] Electrolyte Replacement Protocol Algorithm to [...] -- Admin Instructions: Open Order & Select [facility] Electrolyte Replacement Protocol Algorithm to [...] -- Admin Instructions: Open Order & Select [facility] Electrolyte Replacement Protocol Algorithm to [...] Dean MD April 21 vs April 22 [facility] [address], [address] [facility], [address] Please schedule at [phone] VONDA Garcia 04/10/25 09:01 EDT Cosigned by Sushil Dean Jr., MD at 04/19/2025 10:33 AM EDT Associated attestation - Sushil Dean Jr., MD - 04/19/2025 10:33 AM EDT I have reviewed this documentation and agree. * Carlton Mead MD - 04/10/2025 7:38 AM EDT Images from the original note were not included. INFECTIOUS DISEASE Progress Note Won Dennis 1980 [id number] Date of Consult: 04/10/2025 Admission Date: 04/04/2025 [...] which prompted him to seek treatment at [facility]. He is known to Dr. Dean. [...] HDS, on Heparin gtt. Currently [facility] has been asked to manage the [...] Jr., MD, 20 mg at 04/09/25906 heparin 09405 units/250 mL (100 units/mL) in 0.45 % [...] vancomycin 2750 mg/500 mL 0.9% NS IVPB ([facility]) Ordering Provider: Mario Crowley, DO [...] Units Date/Time FL C Arm During Surgery [[id number]] Resulted: 04/07/252137 Updated: 04/07/252137 Narrative: This procedure was auto-finalized with no dictation required. MRI Tibia Fibula Right With & Without Contrast [[id number]] Collected: 04/07/25 0938 Updated: 04/07/25 1001 Narrative: [...] Buenrostro 04/07/2025 9:58 AM EDT Workstation ID: [id number] Impression: Recurrent Right BKA stump abscess/cellulitis- this [...] discussed his disposition with the pharmacist at [facility] today. I will sign off Outpatient orders: 1. Outpatient intravenous antibiotic therapy: Daptomycin 800 mg IV daily to be supplied by [facility] 2. Home health to perform weekly PICC [...] MD 04/10/2025 07:38 EDT * Yaya Hamiltonn, [facility] - 04/10/2025 7:17 AM EDT Pharmacy [...] Hamilton RPH 04/10/2025 07:17 EDT * Jason Álvaerz DO - 04/09/2025 2:42 PM EDT Images from the original note were not included. [facility] PROGRESS NOTE Patient Name: [...] Date/Time Wound Culture - Swab, Leg, Right [[id number]] (Abnormal) Collected: 04/07/252106 Lab Status: Preliminary result [...] Jason DO Preeti 04/09/25 * Larisa Hamilton [facility] - 04/09/2025 11:36 AM EDT Pharmacy [...] mg Daily 04/05/2025 -- Route: Oral heparin 19842 units/250 mL (100 units/mL) in 0.45 % [...] -- Admin Instructions: Open Order & Select [facility] Electrolyte Replacement Protocol Algorithm to [...] -- Admin Instructions: Open Order & Select [facility] Electrolyte Replacement Protocol Algorithm to [...] -- Admin Instructions: Open Order & Select [facility] Electrolyte Replacement Protocol Algorithm to [...] in 2 weeks for incision check, radiographs [facility] [address], [address] [facility], [address] Please schedule at [phone] VONDA Garcia 04/09/25 09:18 EDT Cosigned by Sushil Dean Jr., MD at 04/19/2025 10:33 AM EDT Associated attestation - Sushil Dean Jr., MD - 04/19/2025 10:33 AM EDT I have reviewed this documentation and agree. * Carlton Mead MD - 04/09/2025 8:25 AM EDT Images from the original note were not included. INFECTIOUS DISEASE Progress Note Won Dennis 1980 [id number] Date of Consult: 04/09/2025 Admission Date: 04/04/2025 [...] which prompted him to seek treatment at [facility]. He is known to Dr. Dean. [...] HDS, on Heparin gtt. Currently [facility] has been asked to manage the [...] IRRIGATION; Surgeon: Sushil Dean Jr., MD; Location: [facility] OR; Service: Orthopedics; Laterality: Right; PLACEMENT OF WOUND VAC Right 04/07/2025 Procedure: WOUND VACUUM ASSISTED CLOSURE; Surgeon: Sushil Dean Jr., MD; Location: [facility] OR; Service: Orthopedics; Laterality: Right; History [...] MD, 20 mg at 04/08/25 0800 heparin 20085 units/250 mL (100 units/mL) in 0.45 % [...] 100 mg, 100 mg, Oral, Nightly, Sushil Dena Jr., MD, 100 mg at 04/08/252006 [COMPLETED] [...] Units Date/Time FL C Arm During Surgery [[id number]] Resulted: 04/07/252137 Updated: 04/07/252137 Narrative: This procedure was auto-finalized with no dictation required. MRI Tibia Fibula Right With & Without Contrast [[id number]] Collected: 04/07/2538 Updated: 04/07/25 1001 Narrative: MRI [...] Buenrostro 04/07/2025 9:58 AM EDT Workstation ID: [id number] Impression: Recurrent Right BKA stump abscess/cellulitis- this [...] mg IV daily to be supplied by [facility] 2. Home health to perform [...] from the original note were not included. [facility] PROGRESS NOTE Patient Name: [...] Buenrostro 04/07/2025 9:58 AM EDT Workstation ID: [id number] I have personally reviewed the therapy plans: [...] Jason Álvarez DO 04/08/25 * Larisa Hamilton [facility] - 04/08/2025 11:48 AM EDT Pharmacy [...] -- Admin Instructions: Open Order & Select [facility] Electrolyte Replacement Protocol Algorithm to [...] mg Daily 04/05/2025 -- Route: Oral heparin 08809 units/250 mL (100 units/mL) in 0.45 % [...] -- Admin Instructions: Open Order & Select [facility] Electrolyte Replacement Protocol Algorithm to [...] -- Admin Instructions: Open Order & Select [facility] Electrolyte Replacement Protocol Algorithm to [...] -- Admin Instructions: Open Order & Select [facility] Electrolyte Replacement Protocol Algorithm to [...] INFECTIOUS DISEASE Progress Note Won Dennis 1980 [id number] Date of Consult: 04/08/2025 Admission Date: 04/04/2025 [...] which prompted him to seek treatment at [facility]. He is known to Dr. Dean. [...] HDS, on Heparin gtt. Currently [facility] has been asked to manage the [...] IRRIGATION; Surgeon: Sushil Dean Jr., MD; Location: [facility] OR; Service: Orthopedics; Laterality: Right; PLACEMENT OF WOUND VAC Right 04/07/2025 Procedure: WOUND VACUUM ASSISTED CLOSURE; Surgeon: Sushil Dean Jr., MD; Location: [facility] OR; Service: Orthopedics; Laterality: Right; History [...] Jr., MD, 20 mg at 04/07/25950 heparin 95109 units/250 mL (100 units/mL) in 0.45 % [...] Units Date/Time FL C Arm During Surgery [[id number]] Resulted: 04/07/252137 Updated: 04/07/252137 Narrative: This procedure was auto-finalized with no dictation required. MRI Tibia Fibula Right With & Without Contrast [[id number]] Collected: 04/07/2538 Updated: 04/07/25 1001 Narrative: MRI [...] Buenrostro 04/07/2025 9:58 AM EDT Workstation ID: [id number] Impression: 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 (Treated by ID in [place] Dr. Harris). Dr. Torres treated him with [...] from the original note were not included. [facility] PROGRESS NOTE Patient Name: [...] Buenrostro 04/07/2025 9:58 AM EDT Workstation ID: [id number] I have personally reviewed the therapy plans: [...] Jason Álvarez DO 04/07/25 * Larisa Hamilton [facility] - 04/07/2025 11:56 AM EDT Pharmacy [...] INFECTIOUS DISEASE Progress Note Won Dennis 1980 [id number] Date of Consult: 04/07/2025 Admission Date: 04/04/2025 [...] which prompted him to seek treatment at [facility]. He is known to Dr. Dean. [...] HDS, on Heparin gtt. Currently [facility] has been asked to manage the [...] Application, 1 Application, Topical, Q12H, Ayah Valentin, ELEMENTARY SCIENCE TEACHER, 1 Application at 04/06/252101 DAPTOmycin (CUBICIN) 800 [...] Shepherd MD, 20 mg at 04/06/25899 heparin 58167 units/250 mL (100 units/mL) in 0.45 % NaCl infusion, 18 Units/kg/hr, Intravenous, Titrated, Cherri Beatty, [facility], Last Rate: 24.1 mL/hr at 04/07/258, [...] With & Without Contrast - In process [[id number]] Resulted: 04/07/25828 Updated: 04/07/25828 This result has not been signed. Information might be incomplete. 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 (Treated by ID in [place] Dr. Harris). Dr. Torres treated him with [...] mg Daily 04/05/2025 -- Route: Oral heparin 32137 units/250 mL (100 units/mL) in 0.45 % [...] -- Admin Instructions: Open Order & Select [facility] Electrolyte Replacement Protocol Algorithm to [...] -- Admin Instructions: Open Order & Select [facility] Electrolyte Replacement Protocol Algorithm to [...] MD 04/07/25 06:07 EDT * Cherri Beatty [facility] - 04/06/2025 1:47 PM EDT Pharmacy [...] from the original note were not included. [facility] PROGRESS NOTE Patient Name: [...] MD 04/04/2025 11:00 PM EDT Workstation ID: [id number] I have personally reviewed the therapy plans: [...] mg Daily 04/05/2025 -- Route: Oral heparin 09598 units/250 mL (100 units/mL) in 0.45 % [...] -- Admin Instructions: Open Order & Select [facility] Electrolyte Replacement Protocol Algorithm to [...] INFECTIOUS DISEASE follow up. Won Dennis 1980 [id number] Date of Consult: 04/06/2025 Admission Date: 04/04/2025 [...] which prompted him to seek treatment at [facility]. He is known to Dr. Dean. [...] HDS, on Heparin gtt. Currently [facility] has been asked to manage the [...] 40 mg, 40 mg, Oral, Nightly, Leonora Sehpherd MD, 40 mg at 04/05/25 2159 sennosides-docusate [...] Application, 1 Application, Topical, Q12H, Ayah Valentin, ELEMENTARY SCIENCE TEACHER, 1 Application at 04/06/25 0859 DAPTOmycin (CUBICIN) [...] MD, 20 mg at 04/06/25 0900 heparin 42152 units/250 mL (100 units/mL) in 0.45 % NaCl infusion, 18 Units/kg/hr, Intravenous, Titrated, Cherri Beatty [facility], Last Rate: 24.1 mL/hr at 04/06/25 [...] Tibia Fibula Right With & Without Contrast [[id number]] Collected: 04/04/252256 Updated: 04/04/252302 Narrative: MRI TIBIA [...] represent a small area of phlegmonous change ([id number] image 10) measuring approximately 1.6 cm which [...] MD 04/04/2025 11:00 PM EDT Workstation ID: [id number] Impression: 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 (Treated by ID in [place] Dr. Harris). Dr. Torres treated him with [...] MD 04/06/2025 16:00 EDT * Cherri Beatty, [facility] - 04/05/2025 3:01 PM EDT Pharmacy [...] from the original note were not included. [facility] PROGRESS NOTE Patient Name: [...] MD 04/04/2025 11:00 PM EDT Workstation ID: [id number] I have personally reviewed the therapy plans: [...] from the original note were not included. [facility] HISTORY AND PHYSICAL Patient [...] MD 04/04/2025 11:00 PM EDT Workstation ID: [id number] Assessment & Plan Assessment & Plan Won [...] 4FR PICC placed by Rhoda Bonner RN [facility], tip verified by 3CG see LDA. * Sushil Dean Jr., MD - 04/05/2025 8:07 AM EDTAssociated Order(s): IP CONSULT TO ORTHOPEDIC SURGERY [facility], [facility] [address] [place] [address] Orthopedic Consult Patient: Won Dennis Date of Admission: 04/04/2025 4:10 PM Date of : 1980 Attending Physician: Jason Álvarez DO Consulting Physician: Sushil Dean Jr, MD Chief Complaint: 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 male admitted to [facility] with 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]. [...] was evaluated in the emergency department in [place], was discharged with instructions for follow-up. He [...] tablet by mouth Daily. 04/03/2025 Morning Lactobacillus-Inulin ([facility]) capsule Take 200 mg by mouth Daily. [...] MD 04/04/2025 11:00 PM EDT Workstation ID: [id number] Assessment: Right BKA infection 44-year-old male with [...] DISEASE CONSULT/INITIAL HOSPITAL VISIT Won Dennis 1980 [id number] Date of Consult: 04/05/2025 Admission Date: 04/04/2025 [...] which prompted him to seek treatment at [facility]. He is known to Dr. Dean. [...] HDS, on Heparin gtt. Currently [facility] has been asked to manage the [...] Leonora Shepherd MD, 40 mg at 04/04/25 8339 sennosides-docusate (PERICOLACE) 8.6-50 MG per tablet 2 [...] MD, 20 mg at 04/05/25 0916 heparin 36475 units/250 mL (100 units/mL) in 0.45 % [...] Tibia Fibula Right With & Without Contrast [[id number]] Collected: 04/04/252256 Updated: 04/04/252302 Narrative: MRI TIBIA [...] represent a small area of phlegmonous change (zvbjro15 image 10) measuring approximately 1.6 cm which [...] MD 04/04/2025 11:00 PM EDT Workstation ID: [id number] Impression: 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 (Treated by ID in [place] Dr. Harris). Dr. Torres treated him with [...] Jr., MD - 04/08/2025 3:51 PM EDT [facility] OPERATIVE REPORT PATIENT NAME: Won Dennis DATE OF : 1980 PREOP DIAGNOSIS: Right Right below-knee amputation infection POSTOP DIAGNOSIS: Same. PROCEDURE: Right Right 51878: Secondary closure below-knee amputation SURGEON: Sushil Dean MD OPERATIVE TEAM: Automotive Accessory Installer: Susi Grullon RN Scrub Person: Mary Paredes Scrub Person Extra: Hortencia Toribio Other: Katt Gotti RN; Charis Neville RN ANESTHETIST: Anesthesiologist: Ulises Hoffman MD INVESTIGATOR OPERATOR: Stan Casillas CRNA Student Nurse Manufacturing Engineer: Karol Albert SRNA ANESTHESIA: Choice ESTIMATED [...] CULTURE (Canceled) Sushil Dean Jr., MD 04/08/25 1382 Description: RIGHT LEG DEEP WOUND FOR CULTURE [...] Jr., MD - 04/07/2025 9:03 PM EDT [facility] [address] [place] [address] OPERATIVE REPORT PATIENT NAME: Won Dennis DATE OF : 1980 PREOP DIAGNOSIS: Right Right below knee amputation stump infection POSTOP DIAGNOSIS: Same. PROCEDURE: Right Right 66546: Incision and drainage of surgical site infection 77368: Debridement of skin, subcutaneous tissue, muscle 34826: Wound vacuum-assisted closure SURGEON: Sushil Dean MD OPERATIVE TEAM: Automotive Accessory Installer: Anum Sanchez RN Scrub Person: Hortencia Toribio; Gerald Ivey ASSISTANT HAIRSTYLIST: Anesthesiologist: Luci Alonso DO ANESTHESIA: General ESTIMATED [...] ago swellling of the area. seen at [facility] yesterday for CT and US, here [...] this chart in the absence of a applied statistician. No orders to display RADIOLOGY: [x] Radiologist's [...] 04/11/2025 1:30 PM EDT Continued Stay Note [place] Patient Name: Won Dennis Today's Date: 04/11/2025 Admit Date: 04/04/2025 Plan: Home with outpatient infusion. Discharge Plan Row Name 04/11/25 1155 Plan Plan Home with outpatient infusion. Final Discharge Disposition Code 01 - home or self-care Final Note Patient discharging today. He is discharging home with outpatient infusion at [facility]. He has an appointment with [facility] at 8:00 am tomorrow. They will do PICC line dressing changes. DEBRA has spoke with Dena at [facility] today multiple times to get [...] to get IV ABX at home with [facility]; however, Medicaid lapsed on 04/08. DEBRA was unaware until this morning that Medicaid has lapsed. Patient explained that he has Medicare A and B. CM spoke with KELLEE and given themhis Medicare number [id number], she sent it to Admission. DEBRA spoke with Kerri, with [facility], and explained that he had Medicare A and B. However, it will not cover home infusion. It will be $64.00 a day out of packet. Patients can go to the Infusion center at [facility], and it will cover the cost as an outpatient. He will need to go there every day for infusion. They will be able to do the patients' PICC line dressing changes and lab work. CM called Dena [facility] infusion center they can accept patient and start him. He is known for their facility. The Facility will need to run it through his insurance first. CM faxed the orders over to [facility] at [phone]. CM will follow up with them tomorrow at [facility] to make sure they received the orders. [...] with patient at bedside today. [facility] [employer] [employer] [facility] at [facility]. Patient getting PICC line [...] note were not included. Discharge Planning Assessment [place] Patient Name: Won Dennis Today's Date: 04/07/2025 [...] with family Patient/Family Anticipated Services at [facility] residential case managermanager diesel Anticipated family or friend will provide Discharge Needs Assessment Equipment Currently Used at Home glucometer;shower chair;pulse ox;bp cuff;prosthesis;crutches Equipment Needed After Discharge none Discharge Plan Row Name 04/07/25 1144 Plan Plan Home Patient/Family in Agreement with Plan yes Plan Comments CM spoke with patient at bedside today. Patient lives with and his 5 kids in [facility]. 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 He has walker, cane, shower chair, and crutches. He requested a wheelchair for home. CM will order wheelchair through [employer]. He is not current with home health services. PCP is Dr. Jordan. Insurance is [facility] [place]. Patient discharge plan is home with priavte transport. CM will follow for any discharge needs. Final Discharge Disposition Code 01 - home or self-care Continued Care and Services - Admitted Since 04/04/2025 No active coordination exists. Demographic Summary Row Name 04/07/25 1143 General Information Arrived From hospital Preferred Language Kittitian Functional Status Row Name 04/07/25 1143 Functional [...] 3:4 0 PM EDT Right BKA infection AL SEC ABDOMINAL WALL SUTURE EVISCERATION/DEHSN 04/08/2025 3:20 [...] CBC Auto Differential (04/11/2025 3:40 AM EDT) [facility] WBC 7.87 3.40 - 10.80 10*3/mm3 04/11/2025 4:02 AM EDT [facility] RBC 4.70 4.14 - 5.80 10*6/mm3 04/11/2025 4:02 AM EDT [facility] Hemoglobin 12.8(L) 13.0 - 17.7 g/dL 04/11/2025 4:02 AM EDT [facility] Hematocrit 40.5 37.5 - 51.0 % 04/11/2025 4:02 AM EDT [facility] MCV 86.2 79.0 - 97.0 fL 04/11/2025 4:02 AM EDT [facility] MCH 27.2 26.6 - 33.0 pg 04/11/2025 4:02 AM EDT [facility] MCHC 31.6 31.5 - 35.7 g/dL 04/11/2025 4:02 AM EDT [facility] RDW 12.9 12.3 - 15.4 % 04/11/2025 4:02 AM EDT [facility] RDW-SD 40.5 37.0 - 54.0 fl 04/11/2025 4:02 AM EDT [facility] MPV 9.2 6.0 - 12.0 fL 04/11/2025 4:02 AM EDT [facility] Platelets 267 140 - 450 10*3/mm3 04/11/2025 4:02 AM [facility] Neutrophil % 59.5 42.7 - 76.0 % 04/11/2025 4:02 AM [facility] Lymphocyte % 26.3 19.6 - 45.3 % 04/11/2025 4:02 AM [facility] Monocyte % 9.3 5.0 - 12.0 % 04/11/2025 4:02 AM [facility] Eosinophil % 4.1 0.3 - 6.2 % 04/11/2025 4:02 AM [facility] Basophil % 0.4 0.0 - 1.5 % 04/11/2025 4:02 AM [facility] Immature Grans % 0.4 0.0 - 0.5 % 04/11/2025 4:02 AM [facility] Neutrophils, Absolute 4.69 1.70 - 7.00 10*3/mm3 04/11/2025 4:02 AM [facility] Lymphocytes, Absolute 2.07 0.70 - 3.10 10*3/mm3 04/11/2025 4:02 AM [facility] Monocytes, Absolute 0.73 0.10 - 0.90 10*3/mm3 04/11/2025 4:02 AM [facility] Eosinophils, Absolute 0.32 0.00 - 0.40 10*3/mm3 04/11/2025 4:02 AM [facility] Basophils, Absolute 0.03 0.00 - 0.20 10*3/mm3 04/11/2025 4:02 AM [facility] Immature Grans, Absolute 0.03 0.00 - 0.05 10*3/mm3 04/11/2025 4:02 AM [facility] nRBC 0.0 0.0 - 0.2 /100 WBC 04/11/2025 4:02 AM [facility] Blood Venipuncture / Unknown 04/11/2025 3:40 AM EDT 04/11/2025 3:59 AM EDT us Sushil Dean Jr., MD LAB BLOOD ORDERABLES Fi nal Result [facility]
[address] [place] [address], * (ABNORMAL) Comprehensive Metabolic Panel (04/11/2025 3:40 [...] - 107 mmol/L 04/11/2025 4:19 AM EDT [facility] CO2 28.2 22.0 - 29.0 mmol/L 04/11/2025 4:19 AM EDT [facility] Calcium 8.2(L) 8.6 - 10.5 mg/dL 04/11/2025 4:19 AM EDT [facility] Total Protein 6.1 6.0 - 8.5 g/dL 04/11/2025 4:19 AM EDT [facility] Albumin 3.1(L) 3.5 - 5.2 g/dL 04/11/2025 4:19 AM EDT [facility] ALT (SGPT) 52(H) 1 - 41 U/L 04/11/2025 4:19 AM EDT [facility] AST (SGOT) 40 1 - 40 U/L 04/11/2025 4:19 AM EDT [facility] Alkaline Phosphatase 99 39 - 117 U/L 04/11/2025 4:19 AM EDT [facility] Total Bilirubin 0.2 0.0 - 1.2 mg/dL 04/11/2025 4:19 AM EDT [facility] Globulin 3.0 gm/dL 04/11/2025 4:19 AM EDT [facility] Comment:Calculated Result A/G Ratio 1.0 g/dL 04/11/2025 4:19 AM EDT [facility] BUN/Creatinine Ratio 18.4 7.0 - 25.0 04/11/2025 4:19 AM EDT [facility] Anion Gap 6.8 5.0 - 15.0 mmol/L 04/11/2025 4:19 AM EDT [facility] eGFR 117.5 >60.0 mL/min/1.7 3 04/11/2025 4:19 AM EDT [facility] Blood Venipuncture / Unknown 04/11/2025 3:40 AM EDT 04/11/2025 3:56 AM EDT [facility] - 04/11/2025 4:19 AM EDT [...] Hill APRN LAB BLOOD ORDERABLES Final Result [facility]
[address] [place] [address], * (ABNORMAL) CBC Auto Differential (04/10/2025 3:46 AM EDT) [facility] WBC 9.60 3.40 - 10.80 10*3/mm3 04/10/2025 3:56 AM EDT [facility] RBC 4.67 4.14 - 5.80 10*6/mm3 04/10/2025 3:[facility] Hemoglobin 12.9(L) 13.0 - 17.7 g/dL 04/10/2025 3:56 AM EDT [facility] Hematocrit 40.1 37.5 - 51.0 % 04/10/2025 3:56 [facility] MCV 85.9 79.0 - 97.0 fL 04/10/2025 3:56 [facility] MCH 27.6 26.6 - 33.0 pg 04/10/2025 3:56 AM [facility] MCHC 32.2 31.5 - 35.7 g/dL 04/10/2025 3:56 AM [facility] RDW 12.9 12.3 - 15.4 % 04/10/2025 3:56 AM [facility] RDW-SD 40.5 37.0 - 54.0 fl 04/10/2025 3:56 AM [facility] MPV 9.5 6.0 - 12.0 fL 04/10/2025 3:56 AM [facility] Platelets 227 140 - 450 10*3/mm3 04/10/2025 3:56 AM EDT [facility] Neutrophil % 59.1 42.7 - 76.0 % 04/10/2025 3:56 AM [facility] Lymphocyte % 29.0 19.6 - 45.3 % 04/10/2025 3:56 AM [facility] Monocyte % 8.1 5.0 - 12.0 % 04/10/2025 3:56 AM [facility] Eosinophil % 3.2 0.3 - 6.2 % 04/10/2025 3:56 AM EDT [facility] Basophil % 0.4 0.0 - 1.5 % 04/10/2025 3:56 AM EDT [facility] Immature Grans % 0.2 0.0 - 0.5 % 04/10/2025 3:56 AM EDT [facility] Neutrophils, Absolute 5.67 1.70 - 7.00 10*3/mm3 04/10/2025 3:56 AM EDT [facility] Lymphocytes, Absolute 2.78 0.70 - 3.10 10*3/mm3 04/10/2025 3:56 AM EDT [facility] Monocytes, Absolute 0.78 0.10 - 0.90 10*3/mm3 04/10/2025 3:56 AM EDT [facility] Eosinophils, Absolute 0.31 0.00 - 0.40 10*3/mm3 04/10/2025 3:56 AM EDT [facility] Basophils, Absolute 0.04 0.00 - 0.20 10*3/mm3 04/10/2025 3:56 AM EDT [facility] Immature Grans, Absolute 0.02 0.00 - 0.05 10*3/mm3 04/10/2025 3:56 AM EDT [facility] nRBC 0.0 0.0 - 0.2 /100 WBC 04/10/2025 3:56 AM EDT [facility] Blood Venipuncture / Unknown 04/10/2025 3:46 AM EDT 04/10/2025 3:53 AM EDT Jason Álvarez DO LAB BLOOD ORDERABLES Final Resul t [facility]
[address] [place] [address], * (ABNORMAL) Basic Metabolic Panel (04/10/2025 3:46 AM EDT) [facility] Glucose 125(H) 65 - 99 mg/dL 04/10/2025 4:20 AM EDT [facility] BUN 15.9 6.0 - 20.0 mg/dL 04/10/2025 4:20 AM T [facility] Creatinine 0.77 0.76 - 1.27 mg/dL 04/10/2025 4:20 AM T [facility] Sodium 137 136 - 145 mmol/L 04/10/2025 4:20 AM [facility] Potassium 3.9 3.5 - 5.2 mmol/L 04/10/2025 4:20 AM EDT [facility] Chloride 102 98 - 107 mmol/L 04/10/2025 4:20 AM EDT [facility] CO2 26.9 22.0 - 29.0 mmol/L 04/10/2025 4:20 AM [facility] Calcium 7.9(L) 8.6 - 10.5 mg/dL 04/10/2025 4:20 AM [facility] BUN/Creatinine Ratio 20.6 7.0 - 25.0 04/10/2025 4:20 AM [facility] Anion Gap 8.1 5.0 - 15.0 mmol/L 04/10/2025 4:20 AM [facility] eGFR 113.2 >60.0 mL/min/1.7 3 04/10/2025 4:20 AM [facility] Blood Venipuncture / Unknown 04/10/2025 3:46 AM EDT 04/10/2025 3:52 AM EDT [facility] - 04/10/2025 4:20 AM EDT [...] Final Resul t [facility]
[address] [place] [address], * Heparin Anti-Xa (04/10/2025 3:46 AM EDT) Heparin Anti-Xa (UFH) 0.35 0.30 - 0.70 IU/ml 04/10/2025 4:23 AM EDT [facility] Blood Venipuncture / Unknown 04/10/2025 3:46 AM EDT 04/10/2025 3:53 AM EDT [facility] LAB BLOOD ORDERABLES Final R esult Performing Organization Address City/[facility]/ZIP Co de Phone Number [facility]
[address] [place] [address], * Heparin Anti-Xa (04/09/2025 10:05 AM EDT) Heparin Anti-Xa (UFH) 0.36 0.30 - 0.70 IU/ml 04/09/2025 11:12 AM EDT [facility] Blood Venipuncture / Unknown 04/09/2025 10:05 AM EDT 04/09/2025 10:[address] [facility] LAB BLOOD ORDERABLES Final R esult [facility]
[address] [place] [address], * (ABNORMAL) CBC Auto Differential (04/09/2025 4:18 AM EDT) WBC 11.00(H) 3.40 - 10.80 10*3/mm3 04/09/2025 4:50 AM [facility] RBC 4.70 4.14 - [...] 26.6 - 33.0 pg 04/09/2025 4:50 [facility] MCHC 32.2 31.5 - 35.7 g/dL 04/09/2025 4:50 AM [facility] RDW 12.8 12.3 - 15.4 % 04/09/2025 4:50 AM [facility] RDW-SD 39.9 37.0 - 54.0 fl 04/09/2025 4:50 AM [facility] MPV 10.0 6.0 - 12.0 fL 04/09/2025 4:50 AM [facility] Platelets 211 140 - 450 10*3/mm3 04/09/2025 4:50 AM [facility] Neutrophil % 74.8 42.7 - 76.0 % 04/09/2025 4:50 AM EDT [facility] Lymphocyte % 15.4(L) 19.6 - 45.3 % 04/09/2025 4:50 AM EDT [facility] Monocyte % 8.5 5.0 - 12.0 % 04/09/2025 4:50 AM EDT [facility] Eosinophil % 0.6 0.3 - 6.2 % 04/09/2025 4:50 AM [facility] Basophil % 0.4 0.0 - 1.5 % 04/09/2025 4:50 AM EDT [facility] Immature Grans % 0.3 0.0 - 0.5 % 04/09/2025 4:50 AM EDT [facility] Neutrophils, Absolute 8.23(H) 1.70 - 7.00 10*3/mm3 04/09/2025 4:50 AM EDT [facility] Lymphocytes, Absolute 1.69 0.70 - 3.10 10*3/mm3 04/09/2025 4:50 AM EDT [facility] Monocytes, Absolute 0.94(H) 0.10 - 0.90 10*3/mm3 04/09/2025 4:50 AM EDT [facility] Eosinophils, Absolute 0.07 0.00 - 0.40 10*3/mm3 04/09/2025 4:50 AM EDT [facility] Basophils, Absolute 0.04 0.00 - 0.20 10*3/mm3 04/09/2025 4:50 AM EDT [facility] Immature Grans, Absolute 0.03 0.00 - 0.05 10*3/mm3 04/09/2025 4:50 AM EDT [facility] nRBC 0.0 0.0 - 0.2 /100 WBC 04/09/2025 4:50 AM EDT [facility] Blood Venipuncture / Unknown 04/09/2025 4:18 AM EDT 04/09/2025 4:31 AM EDT Sushil Dean Jr., MD LAB BLOOD ORDERABLES Fi nal Result [facility]
[address] [place] [address], * Heparin Anti-Xa (04/09/2025 4:18 AM EDT) Heparin Anti-Xa (UFH) 0.41 0.30 - 0.70 IU/ml 04/09/2025 4:53 AM EDT [facility] Blood Venipuncture / Unknown 04/09/2025 4:18 AM EDT 04/09/2025 4:31 AM EDT Una Wheeleroy PharmD LAB BLOOD ORDERABLES Final R esult [facility]
[address] [place] [address], * (ABNORMAL) Basic Metabolic Panel (04/09/2025 4:18 [...] ORDERABLES Fi nal Result Performing Organization Address [facility] Co de Phone Number [facility]
[address] [place] [address], * Wound Culture - Swab, Leg, Right (04/08/2025 3:40 PM EDT) Wound Culture No growth at 3 days ALIZA 04/11/2025 10:40 AM EDT [facility] Gram Stain Few (2+) WBCs [...] [facility]/ZIP Co de Phone Number [facility]
[address] [place] [phone], [facility]
[address] [place] [address], * Anaerobic Culture - Swab, Leg, Right (04/08/2025 3:40 PM EDT) Pathologist [facility] Anaerobic Culture No anaerobes isolated at 5 days ALIZA 04/13/2025 7:24 AM EDT [facility] Swab Structure of right lower limb / Unknown 04/08/2025 3:40 PM EDT 04/08/2025 8:05 PM EDT Sushil Dean Jr., MD MICROBIOLOGY - GENERAL ORDERABLES Final Result Performing Organization Address City/[facility] Co de Phone Number [facility]
[address] [place] [address], [place] [phone] * Scan Slide (04/08/2025 8:41 AM EDT) [...] [facility]/ZIP Co de Phone Number [facility]
[address] [place] [address], [place] [phone] * (ABNORMAL) CBC Auto Differential (04/08/2025 8:41 AM EDT) Pathologist [facility] WBC 10.07 3.40 - 10.80 10*3/mm3 04/08/2025 11:02 AM EDT [facility] RBC 5.01 4.14 - 5.80 10*6/mm3 04/08/2025 11:02 AM EDT [facility] Hemoglobin 14.0 13.0 - 17.7 g/dL 04/08/2025 11:02 AM [facility] Hematocrit 42.7 37.5 - 51.0 % 04/08/2025 11:02 AM [facility] MCV 85.2 79.0 - 97.0 fL 04/08/2025 11:02 AM [facility] MCH 27.9 26.6 - 33.0 pg 04/08/2025 11:02 AM [facility] MCHC 32.8 31.5 - 35.7 g/dL 04/08/2025 11:02 AM [facility] RDW 12.6 12.3 - 15.4 % 04/08/2025 11:02 AM [facility] RDW-SD 38.9 37.0 - 54.0 fl 04/08/2025 11:02 AM [facility] MPV 11.0 6.0 - 12.0 fL 04/08/2025 11:02 AM [facility] Platelets 118(L) 140 - 450 10*3/mm3 04/08/2025 11:02 AM [facility] Neutrophil % 85.1(H) 42.7 - 76.0 % 04/08/2025 11:02 AM [facility] Lymphocyte % 9.3(L) 19.6 - 45.3 % 04/08/2025 11:02 AM [facility] Monocyte % 4.6(L) 5.0 - 12.0 % 04/08/2025 11:02 AM [facility] Eosinophil % 0.3 0.3 - 6.2 % 04/08/2025 11:02 AM [facility] Basophil % 0.2 0.0 - 1.5 % 04/08/2025 11:02 AM [facility] Immature Grans % 0.5 0.0 - 0.5 % 04/08/2025 11:02 AM [facility] Neutrophils, Absolute 8.57(H) 1.70 - 7.00 10*3/mm3 04/08/2025 11:02 AM EDT [facility] Lymphocytes, Absolute 0.94 0.70 - 3.10 10*3/mm3 04/08/2025 11:02 AM EDT [facility] Monocytes, Absolute 0.46 0.10 - 0.90 10*3/mm3 04/08/2025 11:02 AM EDT [facility] Eosinophils, Absolute 0.03 0.00 - 0.40 10*3/mm3 04/08/2025 11:02 AM EDT [facility] Basophils, Absolute 0.02 0.00 - 0.20 10*3/mm3 04/08/2025 11:02 AM EDT [facility] Immature Grans, Absolute 0.05 0.00 - 0.05 10*3/mm3 04/08/2025 11:02 AM EDT [facility] nRBC 0.0 0.0 - 0.2 /100 WBC 04/08/2025 11:02 AM EDT [facility] Blood Venipuncture / Unknown 04/08/2025 8:41 AM EDT 04/08/2025 9:10 AM EDT Una Perla PharmD LAB BLOOD ORDERABLES Final R esult [facility]
[address] [place] [address], * (ABNORMAL) Basic Metabolic Panel (04/08/2025 8:41 [...] 8:41 AM EDT 04/08/2025 9:09 AM EDT [facility] - 04/08/2025 9:51 AM EDT [...] Jr., MD LAB BLOOD ORDERABLES nal Result [facility]
[address] [place] [address], * Heparin Anti-Xa (04/08/2025 8:41 AM EDT) Heparin Anti-Xa (UFH) 0.33 0.30 - 0.70 IU/ml 04/08/2025 9:40 AM EDT [facility] Blood Venipuncture / Unknown 04/08/2025 8:41 AM EDT 04/08/2025 9:10 AM EDT Sushil Dean Jr., MD LAB BLOOD ORDERABLES Fi nal Result [facility]
[address] [place] [address], * FL C Arm During Surgery (04/07/2025 9:32 PM EDT) Narrative SYSTEMGENERATED, DOCUMENTATION - 04/07/2025 9:38 PM EDT This procedure was auto-finalized with no dictation required. Sushil Dean Jr., MD IMG FLUOROSCOPY ORDERAB LES Final Result * Wound Culture - Swab, Leg, Right (04/07/2025 9:14 PM EDT) Wound Culture No growth at 3 days ALIZA 04/11/2025 10:40 AM EDT [facility] Gram Stain Occasional WBCs seen 04/11/2025 10:40 AM EDT [facility] Gram Stain No organisms seen 04/11/2025 10:40 AM EDT [facility] Swab Structure of right lower limb / Unknown Collection / Unknown 04/07/2025 9:14 PM EDT 04/08/2025 4:36 AM EDT Sushil Dean Jr., MD MICROBIOLOGY - GENERAL ORDERABLES Final Result [facility]
[address] [place] [address], [facility]
[address] [place] [address], * Anaerobic Culture - Swab, Leg, Right (04/07/2025 9:14 PM EDT) Anaerobic Culture No anaerobes isolated at 5 days ALIZA 04/13/2025 7:21 AM EDT [facility] Swab Structure of right lower limb / Unknown Collection / Unknown 04/07/2025 9:14 PM EDT 04/08/2025 4:36 AM EDT Sushil Dean Jr., MD MICROBIOLOGY - GENERAL ORDERABLES Final Result Performing Organization Address City/[facility]/ZIP Co de Phone Number [facility]
[address] [place] [address], * Anaerobic Culture - Tissue, Leg (04/07/2025 9:13 PM EDT) Anaerobic Culture No anaerobes isolated at 5 days ALIZA 04/13/2025 7:21 AM EDT [facility] Tissue Lower limb structure / Unknown Collection / Unknown 04/07/2025 9:13 PM EDT 04/08/2025 4:54 AM EDT Jason Álvarez DO MICROBIOLOGY - GENERAL ORDERABLE S Final Result [facility]
[address] [place] [address], * Tissue / Bone Culture - Tissue, Leg, Right (04/07/2025 9:13 PM EDT) Tissue Culture No growth at 3 days ALIZA 04/11/2025 10:36 AM EDT [facility] Gram Stain Rare (1+) WBCs [...] [facility]/ZIP Co de Phone Number [facility]
[address] [place] [address], [place] [phone] [facility]
[address] [place] [address], [place] [phone] * (ABNORMAL) Wound Culture - Swab, Leg, Right (04/07/2025 9:07 PM EDT) Wound Culture Light growth (2+) Staphylococcus aureus, MRSA(A) ALIZA 04/10/2025 10:38 AM EDT [facility] Comment: Methicillin resistant Staphylococcus aureus, Patient may be an isolation risk. Gram Stain Few (2+) WBCs seen 04/10/2025 10:38 AM EDT [facility] Gram Stain No organisms seen 10:38 AM EDT [facility] [...] MD MICROBIOLOGY - GENERAL ORDERABLES Final Result [facility]
[address] [place] [address], [facility]
[address] [place] [address], * Anaerobic Culture - Swab, Leg, Right (04/07/2025 9:07 PM EDT) Pathologist [facility] Anaerobic Culture No anaerobes isolated at 5 days ALIZA 04/13/2025 7:21 AM EDT [facility] Swab Structure of right lower limb / Unknown Collection / Unknown 04/07/2025 9:07 PM EDT 04/08/2025 4:36 AM EDT Sushil Dean Jr., MD MICROBIOLOGY - GENERAL ORDERABLES Final Result Performing Organization Address [facility] Co de Phone Number [facility]
[address] [place] [address], * Heparin Anti-Xa (04/07/2025 9:10 AM EDT) [facility] Heparin Anti-Xa ([facility]) 0.30 0.30 - 0.70 IU/ml 04/07/2025 10:12 AM EDT [facility] Blood Venipuncture / Unknown 04/07/2025 9:10 AM EDT 04/07/2025 9:38 AM EDT Una LundbergD LAB BLOOD ORDERABLES Final R esult Performing Organization Address City/[facility]/ZIP Co de Phone Number [facility]
[address] [place] [address], * (ABNORMAL) CBC Auto Differential (04/07/2025 9:10 AM EDT) Pathologist [facility] WBC 8.63 3.40 - 10.80 10*3/mm3 04/07/2025 9:50 AM EDT [facility] RBC 5.23 4.14 - 5.80 10*6/mm3 04/07/2025 9[facility] Hemoglobin 14.7 13.0 - 17.7 g/dL 04/07/2025 9:50 [facility] Hematocrit 44.8 37.5 - 51.0 % 04/07/2025 9:50 [facility] MCV 85.7 79.0 - 97.0 fL 04/07/2025 9:50 AM EDT [facility] MCH 28.1 26.6 - 33.0 pg 04/07/2025 9:50 [facility] MCHC 32.8 31.5 - 35.7 g/dL 04/07/2025 9:50 [facility] RDW 12.8 12.3 - 15.4 % 04/07/2025 9:50 AM [facility] RDW-SD 39.9 37.0 - 54.0 fl 04/07/2025 9:50 AM [facility] MPV 10.8 6.0 - 12.0 fL 04/07/2025 9:50 AM [facility] Platelets 149 140 - 450 10*3/mm3 04/07/2025 9:50 AM [facility] Neutrophil % 66.7 42.7 - 76.0 % 04/07/2025 9:50 AM [facility] Lymphocyte % 20.5 19.6 - 45.3 % 04/07/2025 9:50 AM EDT [facility] Monocyte % 9.8 5.0 - 12.0 % 04/07/2025 9:50 AM [facility] Eosinophil % 2.1 0.3 - 6.2 % 04/07/2025 9:50 AM [facility] Basophil % 0.3 0.0 - 1.5 % 04/07/2025 9:50 [facility] Immature Grans % 0.6(H) 0.0 - 0.5 % 04/07/2025 9:50 AM EDT [facility] Neutrophils, Absolute 5.75 1.70 - 7.00 10*3/mm3 04/07/2025 9:50 AM EDT [facility] Lymphocytes, Absolute 1.77 0.70 - 3.10 10*3/mm3 04/07/2025 9:50 AM EDT [facility] Monocytes, Absolute 0.85 0.10 - 0.90 10*3/mm3 04/07/2025 9:50 AM EDT [facility] Eosinophils, Absolute 0.18 0.00 - 0.40 10*3/mm3 04/07/2025 9:50 AM EDT [facility] Basophils, Absolute 0.03 0.00 - 0.20 10*3/mm3 04/07/2025 9:50 AM EDT [facility] Immature Grans, Absolute 0.05 0.00 - 0.05 10*3/mm3 04/07/2025 9:50 AM EDT [facility] nRBC 0.0 0.0 - 0.2 /100 WBC 04/07/2025 9:50 AM EDT [facility] Blood Venipuncture / Unknown 04/07/2025 9:10 AM EDT 04/07/2025 9:38 AM EDT us Jason Álvarez DO LAB BLOOD ORDERABLES Final Resul t [facility]
[address] [place] [address], * (ABNORMAL) Basic Metabolic Panel (04/07/2025 9:10 [...] - 10.5 mg/dL 04/07/2025 10:19 AM T [facility] BUN/Creatinine Ratio 17.0 7.0 - 25.0 04/07/2025 10:19 AM EDT [facility] Anion Gap 9.2 5.0 - 15.0 mmol/L 04/07/2025 10:19 AM T [facility] eGFR 113.2 >60.0 mL/min/1.7 3 04/07/2025 10:19 AM T [facility] Blood Venipuncture [...] Final Resul t [facility]
[address] [place] [address], * MRI Tibia Fibula Right With & [...] [place] 04/07/2025 9:58 AM EDT Workstation ID: [id number] Narrative 04/07/2025 9:58 AM EDT MRI TIBIA [...] [place]enrostro 04/07/2025 9:58 AM EDT Workstation ID: [id number] us Sushil Dean Jr., MD [facility] MRI ORDERABLES Mary Beth l Result * Heparin Anti-Xa (04/07/2025 1:42 AM EDT) Heparin Anti-Xa (UFH) 0.38 0.30 - 0.70 IU/ml 04/07/2025 2:14 AM EDT [facility] Blood Venipuncture / Unknown 04/07/2025 1:42 AM EDT 04/07/2025 1:54 AM EDT Chelsie Navarretesapna [facility] LAB BLOOD ORDERABLES Final R esult Performing Organization Address City/[facility]/ZIP Co de Phone Number [facility]
[address] [place] [address], * Heparin Anti-Xa (04/06/2025 7:16 PM EDT) Pathologist [facility] Heparin Anti-Xa (UFH) 0.33 0.30 - 0.70 IU/ml 04/06/2025 7:50 PM EDT [facility] Blood Venipuncture / Unknown 04/06/2025 7:16 PM EDT 04/06/2025 7:35 PM EDT Cherri Beatty [facility] LAB BLOOD ORDERABLES Final Res ult Performing Organization Address City/[facility] Co de Phone Number [facility]
[address] [place] [address], * Potassium (04/06/2025 7:16 PM EDT) Pathologist [facility] Potassium 4.0 3.5 - 5.2 mmol/L 04/06/2025 7:53 PM EDT [facility] Blood Venipuncture / Unknown 04/06/2025 7:16 PM EDT 04/06/2025 7:35 PM EDT Jason Álvarez DO LAB BLOOD ORDERABLES Final Resul t Performing Organization Address City/[facility]/ZIP Co de Phone Number [facility]
[address] [place] [address], * (ABNORMAL) Heparin Anti-Xa (04/06/2025 12:36 PM EDT) Heparin Anti-Xa (UFH) 0.24(L) 0.30 - 0.70 IU/ml 04/06/2025 1:23 PM EDT [facility] Blood Venipuncture / Unknown 04/06/2025 12:36 PM EDT 04/06/2025 1:07 PM EDT Una LundbergD LAB BLOOD ORDERABLES Final R esult [facility]
[address] [place] [address], * (ABNORMAL) Heparin Anti-Xa (04/06/2025 3:42 AM EDT) [facility] Heparin Anti-Xa (UFH) 0.25(L) 0.30 - 0.70 IU/ml 04/06/2025 5:30 AM EDT [facility] Blood Venipuncture / Unknown 04/06/2025 3:42 AM EDT 04/06/2025 4:59 AM EDT Chelsie Turpin [facility] LAB BLOOD ORDERABLES Final R esult [facility]
[address] [place] [address], * (ABNORMAL) Basic Metabolic Panel (04/06/2025 3:42 AM EDT) [facility] Glucose 94 65 - 99 mg/dL [...] AM EDT 04/06/2025 5:20 AM EDT Narrative [facility] - 04/06/2025 5:59 AM [...] Final Resul t [facility]
[address] [place] [address], * (ABNORMAL) CBC Auto Differential (04/06/2025 3:41 [...] - 35.7 g/dL 04/06/2025 5:04 AM EDT [facility] RDW 12.8 12.3 - 15.4 % 04/06/2025 5:04 AM EDT [facility] RDW-SD 40.0 37.0 - 54.0 fl 04/06/2025 5:04 AM EDT [facility] MPV 11.7 6.0 - 12.0 fL 04/06/2025 5:04 AM EDT [facility] Platelets 115(L) 140 - 450 10*3/mm3 04/06/2025 5:04 AM EDT [facility] Neutrophil % 65.3 42.7 - 76.0 % 04/06/2025 5:04 AM EDT [facility] Lymphocyte % 20.5 19.6 - 45.3 % 04/06/2025 5:04 AM EDT [facility] Monocyte % 11.8 5.0 - 12.0 % 04/06/2025 5:04 AM EDT [facility] Eosinophil % 1.8 0.3 - 6.2 % 04/06/2025 5:04 AM EDT [facility] Basophil % 0.3 0.0 - 1.5 % 04/06/2025 5:04 AM EDT [facility] Immature Grans % 0.3 0.0 - 0.5 % 04/06/2025 5:04 AM EDT [facility] Neutrophils, Absolute 7.09(H) 1.70 - 7.00 10*3/mm3 04/06/2025 5:04 AM EDT [facility] Lymphocytes, Absolute 2.23 0.70 - 3.10 10*3/mm3 04/06/2025 5:04 AM EDT [facility] Monocytes, Absolute 1.28(H) 0.10 - 0.90 10*3/mm3 04/06/2025 5:04 AM EDT [facility] Eosinophils, Absolute 0.20 0.00 - 0.40 10*3/mm3 04/06/2025 5:04 AM EDT [facility] Basophils, [...] Final Resul t [facility]
[address] [place] [address], * Heparin Anti-Xa (04/05/2025 8:43 PM EDT) Heparin Anti-Xa (UFH) 0.38 0.30 - 0.70 IU/ml 04/05/2025 9:09 PM EDT [facility] Blood Venipuncture / Unknown 04/05/2025 8:43 PM EDT 04/05/2025 8:55 PM EDT Cherri Beatty [facility] LAB BLOOD ORDERABLES Final Res ult Performing Organization Address [facility] Co de Phone Number [facility]
[address] [place] [address], * CK (04/05/2025 12:15 PM EDT) Creatine Kinase 140 20 - 200 U/L 04/05/2025 1:31 PM EDT [facility] Blood Venipuncture / Unknown 04/05/2025 12:15 PM EDT 04/05/2025 1:03 PM EDT Carlton Mead MD LAB BLOOD ORDERABLES Final R esult Performing Organization Address [facility] Co de Phone Number [facility]
[address] [place] [address], [place] [phone] * (ABNORMAL) Heparin Anti-Xa (04/05/2025 12:15 PM EDT) Heparin Anti-Xa (UFH) 0.17(L) 0.30 - 0.70 IU/ml 04/05/2025 1:21 PM EDT [facility] Blood Venipuncture / Unknown 04/05/2025 12:15 PM EDT 04/05/2025 1:04 PM EDT Una LundbergD LAB BLOOD ORDERABLES Final R esult Performing Organization Address City/[facility]/ZIP Co de Phone Number [facility]
[address] [place] [address], * (ABNORMAL) aPTT (04/05/2025 3:54 AM EDT) [facility] PTT 35.3(L) 60.0 - 90.0 seconds 04/05/2025 4:31 AM EDT [facility] Blood Venipuncture / Unknown 04/05/2025 3:54 AM EDT 04/05/2025 4:15 AM EDT Narrative [facility] - 04/05/2025 4:31 AM EDT PTT = The equivalent PTT values for the therapeutic range of heparin levels at 0.3 to 0.5 U/ml are 60 to 70 seconds. Una Perla [employer] LAB BLOOD ORDERABLES Final R esult Performing Organization Address [facility] Co de Phone Number [facility]
[address] [place] [address], * Heparin Anti-Xa (04/05/2025 3:54 AM EDT) [facility] Heparin Anti-Xa (UFH) 0.30 0.30 - 0.70 IU/ml 04/05/2025 4:32 AM EDT [facility] Blood Venipuncture / Unknown 04/05/2025 3:54 AM EDT 04/05/2025 4:15 AM EDT [employer] LAB BLOOD ORDERABLES Final R esult Performing Organization Address City/[facility] Co de Phone Number [facility]
[address] [place] [address], * (ABNORMAL) CBC Auto Differential (04/05/2025 3:54 AM EDT) [facility] WBC 11.18(H) 3.40 - 10.80 10*3/mm3 [...] 26.6 - 33.0 pg 04/05/2025 4:[facility] MCHC 32.8 31.5 - 35.7 g/dL 04/05/2025 4:20 AM [facility] RDW 12.9 12.3 - 15.4 % 04/05/2025 4:20 AM [facility] RDW-SD 39.7 37.0 - 54.0 fl 04/05/2025 4:20 AM [facility] MPV 10.2 6.0 - 12.0 fL 04/05/2025 4:20 AM [facility] Platelets 160 140 - 450 10*3/mm3 04/05/2025 4:20 AM [facility] Neutrophil % 73.5 42.7 - 76.0 % 04/05/2025 4:20 AM [facility] Lymphocyte % 14.0(L) 19.6 - 45.3 % 04/05/2025 4:20 AM EDT [facility] Monocyte % 11.0 5.0 - 12.0 % 04/05/2025 4:20 AM [facility] Eosinophil % 0.8 0.3 - 6.2 % 04/05/2025 4:20 AM [facility] Basophil % 0.3 0.0 - 1.5 % 04/05/2025 4:20 AM EDT [facility] Immature Grans % 0.4 0.0 - 0.5 % 04/05/2025 4:20 AM EDT [facility] Neutrophils, Absolute 8.23(H) 1.70 - 7.00 10*3/mm3 04/05/2025 4:20 AM EDT [facility] Lymphocytes, Absolute 1.56 0.70 - 3.10 10*3/mm3 04/05/2025 4:20 AM EDT [facility] Monocytes, Absolute 1.23(H) 0.10 - 0.90 10*3/mm3 04/05/2025 4:20 AM EDT [facility] Eosinophils, Absolute 0.09 0.00 - 0.40 10*3/mm3 04/05/2025 4:20 AM EDT [facility] Basophils, Absolute 0.03 0.00 - 0.20 10*3/mm3 04/05/2025 4:20 AM EDT [facility] Immature Grans, Absolute 0.04 0.00 - 0.05 10*3/mm3 04/05/2025 4:20 AM EDT [facility] nRBC 0.0 0.0 - 0.2 /100 WBC 04/05/2025 4:20 AM EDT [facility] Blood Venipuncture / Unknown 04/05/2025 3:54 AM EDT 04/05/2025 4:16 AM EDT Una Perla PharmD LAB BLOOD ORDERABLES Final R esult [facility]
[address] [place] [address], * (ABNORMAL) Basic Metabolic Panel (04/05/2025 3:54 AM EDT) [facility] Signature Glucose 152(H) 65 - 99 mg/dL 04/05/2025 4:40 AM EDT [facility] BUN 17.3 6.0 - 20.0 mg/dL 04/05/2025 4:40 AM T [facility] Creatinine 0.92 0.76 [...] - 29.0 mmol/L 04/05/2025 4:40 AM T [facility] Calcium 7.8(L) 8.6 - 10.5 mg/dL 04/05/2025 4:40 AM [facility] BUN/Creatinine Ratio 18.8 7.0 - 25.0 04/05/2025 4:40 AM T [facility] Anion Gap 9.0 5.0 - 15.0 mmol/L 04/05/2025 4:40 AM [facility] eGFR 105.2 >60.0 mL/min/1.7 3 04/05/2025 4:40 AM [facility] Blood Venipuncture / Unknown 04/05/2025 3:54 AM EDT 04/05/2025 4:15 AM EDT [facility] - 04/05/2025 4:40 AM EDT [...] ORDERABLES Final Re sult Performing Organization Address [facility] Co de Phone Number [facility]
[address] [place] [address], * (ABNORMAL) aPTT (04/05/2025 12:18 AM EDT) [...] ORDERABLES Final R esult Performing Organization Address [facility] Co de Phone Number [facility]
[address] [place] [address], [place] [phone] * (ABNORMAL) Protime-INR (04/05/2025 12:18 AM EDT) Protime 15.9(H) 12.2 - 15.3 Seconds 04/05/2025 12:53 AM EDT [facility] INR 1.19(H) 0.89 - 1.12 04/05/2025 12:53 AM EDT [facility] Blood Venipuncture / Unknown 04/05/2025 12:18 AM EDT 04/05/2025 12:37 AM EDT Una Perla PharmD LAB BLOOD ORDERABLES Final R esult Performing Organization Address City/[facility] Co de Phone Number [facility]
[address] [place] [address], [place] [phone] * Heparin Anti-Xa (04/05/2025 12:18 AM EDT) Heparin Anti-Xa (UFH) 0.39 0.30 - 0.70 IU/ml 04/05/2025 12:54 AM EDT [facility] Blood Venipuncture / Unknown 04/05/2025 12:18 AM EDT 04/05/2025 12:37 AM EDT Una Perla PharmD LAB BLOOD ORDERABLES Final R esult [facility]
[address] [place] [address], * MRI Tibia Fibula Right With & [...] MD 04/04/2025 11:00 PM EDT Workstation ID: [id number] Narrative 04/04/2025 11:00 PM EDT MRI TIBIA [...] MD 04/04/2025 11:00 PM EDT Workstation ID: [id number] us Leonora Shepherd MD IMG MRI ORDERABLES Final Resu lt * POC Creatinine (04/04/2025 2:49 PM EDT) [facility] Creatinine 1.10 0.60 - 1.30 mg/dL 04/07/2025 7:14 PM EDT [facility] Comment:Serial Number: [id number]: [id number] Venous Blood 04/04/2025 2:49 PM EDT 04/07/2025 7:14 PM EDT Jason Álvarez DO POINT OF CARE TEST ORDERABLES Fi nal Result [facility]
[address] [place] [address], * (ABNORMAL) CBC Auto Differential (04/04/2025 2:47 PM EDT) [facility] WBC 12.72(H) 3.40 - 10.80 10*3/mm3 [...] 12.3 - 15.4 % 04/04/2025 2:56 PM [facility] RDW-SD 40.3 37.0 - [...] 19.6 - 45.3 % 04/04/2025 2:56 PM [facility] Monocyte % 11.2 5.0 - 12.0 % 04/04/2025 2:56 PM [facility] Eosinophil % 0.4 0.3 - 6.2 % 04/04/2025 2:56 PM EDT [facility] Basophil % 0.2 0.0 - 1.5 % 04/04/2025 2:56 PM [facility] Immature Grans % 0.2 0.0 - 0.5 % 04/04/2025 2:56 PM [facility] Neutrophils, Absolute 9.52(H) 1.70 - 7.00 10*3/mm3 04/04/2025 2:56 PM [facility] Lymphocytes, Absolute 1.66 0.70 - 3.10 10*3/mm3 04/04/2025 2:56 PM EDT [facility] Monocytes, Absolute 1.43(H) 0.10 - 0.90 10*3/mm3 04/04/2025 2:56 PM EDT [facility] Eosinophils, Absolute 0.05 0.00 - 0.40 10*3/mm3 04/04/2025 2:56 PM [facility] Basophils, Absolute 0.03 0.00 - 0.20 10*3/mm3 04/04/2025 2:56 PM EDT [facility] Immature Grans, Absolute 0.03 0.00 - 0.05 10*3/mm3 04/04/2025 2:56 PM EDT [facility] nRBC 0.0 0.0 - 0.2 /100 WBC 04/04/2025 2:56 PM EDT [facility] Blood Venipuncture / Unknown 04/04/2025 2:47 PM EDT 04/04/2025 2:52 PM EDT Maroi Ortiz Ghanshyam[employer] LAB BLOOD ORDERABLES Fin al Result Performing Organization Address City/[facility]/ZIP Co de Phone Number [facility]
[address] [place] [address], * (ABNORMAL) C-reactive Protein (04/04/2025 2:47 PM EDT) C-Reactive Protein 8.57(H) 0.00 - 0.50 mg/dL 04/04/2025 3:26 PM EDT [facility] Blood Venipuncture / Unknown 04/04/2025 2:47 PM EDT 04/04/2025 2:52 PM EDT Mario Ortiz GhanshyamCredSimple LAB BLOOD ORDERABLES Fin al Result Performing Organization Address [facility] de Phone Number [facility]
[address] [place] [address], * (ABNORMAL) Sedimentation Rate (04/04/2025 2:47 PM EDT) Sed Rate 51(H) 0 - 15 mm/hr 04/04/2025 3:06 PM EDT [facility] Blood Venipuncture / Unknown 04/04/2025 2:47 PM EDT 04/04/2025 2:52 PM EDT Mario Ortiz [facility] LAB BLOOD ORDERABLES Fin al Result Performing Organization Address City/[facility]/ZIP Co de Phone Number [facility]
[address] [place] [address], * Comprehensive Metabolic Panel (04/04/2025 2:47 PM EDT) [facility] Glucose 90 65 - 99 mg/dL [...] - 29.0 mmol/L 04/04/2025 3:26 PM EDT [facility] Calcium 8.6 8.6 - 10.5 mg/dL 04/04/2025 3:26 PM EDT [facility] Total Protein 7.3 6.0 - 8.5 g/dL 04/04/2025 3:26 PM EDT [facility] Albumin 4.1 3.5 - 5.2 g/dL 04/04/2025 3:26 PM EDT [facility] ALT (SGPT) 26 1 - 41 U/L 04/04/2025 3:26 PM EDT [facility] AST (SGOT) 25 1 - 40 U/L 04/04/2025 3:26 PM EDT [facility] Alkaline Phosphatase 106 39 - 117 U/L 04/04/2025 3:26 PM EDT [facility] Total Bilirubin 1.0 0.0 - 1.2 mg/dL 04/04/2025 3:26 PM EDT [facility] Globulin 3.2 gm/dL 04/04/2025 3:26 PM EDT [facility] Comment:Calculated Result A/G Ratio 1.3 g/dL 04/04/2025 3:26 PM EDT [facility] BUN/Creatinine Ratio 19.5 7.0 - 25.0 04/04/2025 3:26 PM EDT [facility] Anion Gap 10.7 5.0 - 15.0 mmol/L 04/04/2025 3:26 PM EDT [facility] eGFR 102.5 >60.0 mL/min/1.7 3 04/04/2025 3:26 PM EDT [facility] Blood Venipuncture / Unknown 04/04/2025 2:47 PM EDT 04/04/2025 2:52 PM EDT Narrative [facility] - 04/04/2025 3:26 PM [...] Fin al Result [facility]
[address] [place] [address], documented in this encounter Visit Diagnoses Diagnosis [...] 04/05/2025 3:33 PM EDT 2,000 Units heparin [id number] units/250 mL (100 units/mL) in 0.45 % [...] BPA Driven Protocol Open Order & Select [facility] Electrolyte Replacement Protocol Algorithm to [...] BPA Driven Protocol Open Order & Select [facility] Electrolyte Replacement Protocol Algorithm to [...] disposal. 0831 (Given - Provider: Amber Salazar, GIFT MANAGER)194 (Given - Provider: Anahy Marcelino, GIFT MANAGER)2129 (Canceled Entry - Provider: Anahy Marcelino RRT [...] Continuous Medication Order 04/09/2025 04/10/2025 04/11/2025 heparin [id number] units/250 mL (100 units/mL) in 0.45 % [...] BPA Driven Protocol Open Order & Select [facility] Electrolyte Replacement Protocol Algorithm to [...] BPA Driven Protocol Open Order & Select [facility] Electrolyte Replacement Protocol Algorithm to [...] documented as of this encounter Care Teams Public Service Representative Relationship Specialty Start Date End Date Provider, [place] [address] PCP - General 05/09/23 documented as of this encounter
--- OUTSIDE RECORDS SUMMARY | 2025-04-07 18:00 | XMS_ITS | Encounter Summary ---
[facility] Address [address] [place] [address] Care Team Providers Care Manager Internet Retails Sales Name Role Phone Provider, No Known Primary Care Provider Unavail able Reason for Visit * Reason Comments Leg Swelling * Auth/Cert Specialty Diagnoses / Procedures Referred By Contac t Referred To Contact Diagnoses Right BKA infection Referral ID Status Reason Start Date Expiration Date Visits Re quested Visits Authorized [id number] 1 1 Encounter Details Date Type Department Care Team (Late st Contact Info) Description 04/07/2025 6:00 PM EDT - 04/07/2025 6:52 PM EDT Surgery [facility] OR [address] [place] [address] Sushil Dean Jr., MD [address] [place] [address] [address] [id number] LEG DEBRIDEMENT, IRRIGATION Social History Tobacco Use Types Packs/Day Years Used Date Smoking Tobacco: Never Smokeless Tobacco: Never Tobacco Cessation:Counseling Given: Not Answered Alcohol Use Standard Drinks/Week Comments Not Currently 0 (1 standard drink = 0.6 oz pur e alcohol) [facility] Utilities Answer Date Recorded In the past 12 months has [employer] electric, gas, oil, or water company threatened [...] 2:25 PM EDT Cherri Grimm RN * [place] Suicide Severity Rating Scale (Screener/Recent Self-Report) Question [...] from the original note were not included. [facility] Medicine Services DISCHARGE SUMMARY Patient [...] Date/Time Wound Culture - Swab, Leg, Right [[id number]] (Abnormal) (Susceptibility) Collected: 04/07/252106 Lab Status: Final [...] Units Date/Time FL C Arm During Surgery [[id number]] Resulted: 04/07/252137 Updated: 04/07/252137 Narrative: This procedure was auto-finalized with no dictation required. MRI Tibia Fibula Right With & Without Contrast [[id number]] Collected: 04/07/25 0938 Updated: 04/07/25 1001 Narrative: [...] Buenrostro 04/07/2025 9:58 AM EDT Workstation ID: [id number] MRI Tibia Fibula Right With & Without Contrast [[id number]] Collected: 04/04/252256 Updated: 04/04/252302 Narrative: MRI TIBIA [...] represent a small area of phlegmonous change ([id number] image 10) measuring approximately 1.6 cm which [...] MD 04/04/2025 11:00 PM EDT Workstation ID: [id number] Pending Labs Order Current Status Fungus Culture [...] Male) Date of 1980 Social Security Number [id number] [place] [address] [place] [address] Christian Unknown Marital Status Unknown Admission Date 04/04/2025 Admission Type Emergency Admitting Provider Jadyn Richardson DO Attending Provider Jadyn Richardson DO Department, Room/Bed [facility] 5G, S565/1 Discharge Date Discharge Disposition Discharge Destination Attending Provider: Jadyn Richardson DO Allergies: Ceftin [Cefuroxime], Keflex [Cephalexin], Latex Isolation: None Infection: MRSA (05/11/23) Code Status: CPR Ht: 180.3 cm (71 ) Wt: 134 kg (295 lb) Admission Cmt: None 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 Insurance as of 04/04/2025 Primary Coverage Payor Plan Insurance Group Employer/Plan Group [place] [id number] Payor Plan Address Payor Plan Phone Number Payor Plan Fax Number Effective Dates [employer] [address] [address] 08/10/2023 - None Entered [facility] [address] Subscriber Name Subscriber Date Member ID WON DENNIS 1980 [id number] Emergency Contacts Process Mechanic (Rel.) Home Phone Work Phone Mobile Phone Avril Dennis (Spouse) -- -- [phone] Robert Hackett (Relative) -- -- [phone] [facility] 5G [address] [facility] [address] Patient: ROOM: [facility] Won Dennis [address] [place] [address] : 1980 SSN: [id number] Sex: M PCP: Provider, No Known Emergency Contact Information Name Relation Home Work Mobile Avril Dennis Spouse [phone] Other Contacts Name Relation Home Work Mobile Robert Hackett Relative [phone] INSURANCE PAYOR PLAN GROUP # SUBSCRIBER ID Primary: Secondary: MEDICARE [place] [id number] Admitting Diagnosis: 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 Outpatient intravenous antibiotic therapy: Daptomycin 800 mg IV daily to be supplied by [facility] 2. Home health to perform [...] INFECTIOUS DISEASE Progress Note Won Dennis 1980 [id number] Date of Consult: 04/10/2025 Admission Date: 04/04/2025 [...] Jr., MD, 20 mg at 04/09/25906 heparin 58829 units/250 mL (100 units/mL) in 0.45 % [...] vancomycin 2750 mg/500 mL 0.9% NS IVPB ([facility]) Ordering Provider: Mario Crowley, DO [...] Units Date/Time FL C Arm During Surgery [[id number]] Resulted: 04/07/252137 Updated: 04/07/252137 Narrative: This procedure was auto-finalized with no dictation required. MRI Tibia Fibula Right With & Without Contrast [[id number]] Collected: 04/07/2538 Updated: 04/07/25 1001 Narrative: MRI [...] Buenrostro 04/07/2025 9:58 AM EDT Workstation ID: [id number] Impression: Recurrent Right BKA stump abscess/cellulitis- this [...] disposition with the pharmacist at [facility] today. I will sign off Outpatient orders: 1. Outpatient intravenous antibiotic therapy: Daptomycin 800 mg IV daily to be supplied by [facility] 2. Home health to perform weekly PICC [...] 04/10/251323 Creation Time: 04/10/251323 Signed Expand All [facility] Medicine Services PROGRESS NOTE Patient Name: [...] Date/Time Wound Culture - Swab, Leg, Right [[id number]] (Abnormal) (Susceptibility) Collected: 04/07/252106 Lab Status: Final [...] Row Name 04/06/25 1143 Sit-Stand Transfer Sit-Stand Kent (Transfers) modified independence - Comment, (Sit-Stand Transfer) Pt stood from recliner. Not holding onto walker, pt able to pull his pants up while balancing on his one leg. -LM Row Name 04/06/25 1143 Gait/Stairs (Locomotion) Kent Level (Gait) modified independence - Distance in [...] Motion bilateral lower extremity ROM WFL -LM [facility] Name 04/06/25 1145 Strength Comprehensive (MMT) General Manual Muscle Testing (MMT) Assessment no strength deficits identified BLEs -LM [facility] Name 04/06/25 1145 Balance Balance Assessment [...] documentation. Clinical Impression [facility] 04/06/25 1146 Pain Pretreatment Pain Rating 0/10 - no pain -LM Posttreatment Pain Rating 0/10 - no pain -LM [facility] 04/06/25 1146 Plan of Care Review Plan of Care Reviewed With patient -LM Outcome Evaluation PT evaluation completed. Pt demonstrated independence with all mobility including ambulating 100 feet using rw - no unsteadiness noted. Pt reports he feels at baseline and doesn't think he needs skilled PT while here. Recommend home at d/c. PT signing off. -LM [facility] Name 04/06/25 1146 Therapy Assessment/Plan (PT) Criteria for Skilled Interventions Met (PT) no;no problems identified which require skilled intervention -LM Therapy Frequency (PT) evaluation only -LM Predicted Duration of Therapy Intervention (PT) Eval Only -LM [facility] Name 04/06/25 1146 Vital Signs Pretreatment Heart Rate (beats/min) 86 -LM Posttreatment Heart Rate (beats/min) 96 -LM Pre SpO2 (%) 95 -LM O2 Delivery Pre Treatment room air -LM Post SpO2 (%) 96 -LM O2 Delivery Post Treatment room air -LM Pre Patient Position Sitting -LM Post Patient Position Sitting -LM [facility] Name 04/06/25 1146 Positioning and Restraints [...] Nurse Physical Therapy Education Title: PT OT FABRIC LAY OUT WORKER Therapies (Done) Topic: Physical Therapy (Done) Point: Mobility training (Done) Learning Progress Summary Patient Acceptance, E, VU,DU by at 04/06/2025 1147 Point: Precautions (Done) Learning Progress Summary Patient Acceptance, E, VU,DU by at 04/06/2025 1147 User Cabrera Initials Effective Dates Name Provider Type [facility] 01/24/25 - Susan Cavazos, PT Physical Therapist [...] 31 -LM Total Minutes 31 -LM User Cabrear (r) = Recorded By, (t) = Taken By, (c) = Cosigned By Initials Name Provider Type LM Susan Cavazos, PT Physical Therapist Therapy Charges for Today Code Description Service Date Service Provider Modifiers Qty [id number] PT EVAL LOW COMPLEXITY 3 04/06/2025 Susan [...] mg Daily 04/05/2025 -- Route: Oral heparin 71146 units/250 mL (100 units/mL) in 0.45 % [...] Dean MD April 21 vs April 22 [facility] [address], [address] [facility], [address] Please schedule at [phone] VONDA Garcia 04/11/25 08:32 EDT Cosigned by Sushil Dean Jr., MD at 04/19/2025 10:33 AM EDT Associated attestation - Sushil Dean Jr., MD - 04/19/2025 10:33 AM EDT I have reviewed this documentation and agree. * Rosario Hill APRN - 04/10/2025 1:24 PM EDT Images from the original note were not included. [facility] Medicine Services PROGRESS NOTE Patient [...] Date/Time Wound Culture - Swab, Leg, Right [[id number]] (Abnormal) (Susceptibility) Collected: 04/07/252106 Lab Status: Final [...] mg Daily 04/05/2025 -- Route: Oral heparin 76237 units/250 mL (100 units/mL) in 0.45 % [...] Dean MD April 21 vs April 22 [facility] [address] [facility] [address] [facility], [address] [facility], [address] Please schedule at [phone] VONDA Garcia 04/10/25 09:01 EDT Cosigned by Sushil Dean Jr., MD at 04/19/2025 10:33 AM EDT Associated attestation - Sushil Dean Jr., MD - 04/19/2025 10:33 AM EDT I have reviewed this documentation and agree. * Carlton Mead MD - 04/10/2025 7:38 AM EDT Images from the original note were not included. INFECTIOUS DISEASE Progress Note Won Dennis 1980 [id number] Date of Consult: 04/10/2025 Admission Date: 04/04/2025 [...] IRRIGATION; Surgeon: Sushil Dean Jr., MD; Location: [facility]; Service: Orthopedics; Laterality: Right; PLACEMENT OF WOUND VAC Right 04/07/2025 Procedure: WOUND VACUUM ASSISTED CLOSURE; Surgeon: Sushil Dean Jr., MD; Location: [facility]; Service: Orthopedics; Laterality: Right; WOUND CLOSURE [...] Jr., MD, 20 mg at 04/09/25906 heparin 57215 units/250 mL (100 units/mL) in 0.45 % [...] Units Date/Time FL C Arm During Surgery [[id number]] Resulted: 04/07/252137 Updated: 04/07/252137 Narrative: This procedure was auto-finalized with no dictation required. MRI Tibia Fibula Right With & Without Contrast [[id number]] Collected: 04/07/25937 Updated: 04/07/25 100 Narrative: MRI [...] Buenrostro 04/07/2025 9:58 AM EDT Workstation ID: [id number] Impression: Recurrent Right BKA stump abscess/cellulitis- this [...] disposition with the pharmacist at [facility] today. I will sign off Outpatient orders: 1. Outpatient intravenous antibiotic therapy: Daptomycin 800 mg IV daily to be supplied by [facility] 2. Home health to perform weekly PICC [...] MD 04/10/2025 07:38 EDT * Larisa Hamilton [facility] - 04/10/2025 7:17 AM [...] from the original note were not included. [facility] Medicine Services PROGRESS NOTE Patient [...] Date/Time Wound Culture - Swab, Leg, Right [[id number]] (Abnormal) Collected: 04/07/252106 Lab Status: Preliminary result [...] Jason Álvarez DO 04/09/25 * Larisa Hamilton [facility] [...] -- Admin Instructions: Open Order & Select [facility] Electrolyte Replacement Protocol Algorithm to [...] mg Daily 04/05/2025 -- Route: Oral heparin 05697 units/250 mL (100 units/mL) in 0.45 % [...] -- Admin Instructions: Open Order & Select [facility] Electrolyte Replacement Protocol Algorithm to [...] in 2 weeks for incision check, radiographs [facility] [address], [address] [facility], [address] Please schedule at [phone] VONDA Garcia 04/09/25 09:18 EDT Cosigned by Sushil Dean Jr., MD at 04/19/2025 10:33 AM EDT Associated attestation - Sushil Dean Jr., MD - 04/19/2025 10:33 AM EDT I have reviewed this documentation and agree. * Carlton Mead MD - 04/09/2025 8:25 AM EDT Images from the original note were not included. INFECTIOUS DISEASE Progress Note Won Dennis 1980 [id number] Date of Consult: 04/09/2025 Admission Date: 04/04/2025 [...] Sushil Dean Jr., MD; Location: [facility]; Service: Orthopedics; Laterality: Right; PLACEMENT OF [...] MD, 20 mg at 04/08/25 0800 heparin 77996 units/250 mL (100 units/mL) in 0.45 % [...] Units Date/Time FL C Arm During Surgery [[id number]] Resulted: 04/07/252137 Updated: 04/07/252137 Narrative: This procedure was auto-finalized with no dictation required. MRI Tibia Fibula Right With & Without Contrast [[id number]] Collected: 04/07/25 0938 Updated: 04/07/25 1001 Narrative: [...] Chitra 04/07/2025 9:58 AM EDT Workstation ID: [id number] Impression: Recurrent Right BKA stump abscess/cellulitis- this [...] mg IV daily to be supplied by [facility] 2. Home health to perform [...] from the original note were not included. [facility] Medicine Services PROGRESS NOTE Patient [...] Buenrostro 04/07/2025 9:58 AM EDT Workstation ID: [id number] I have personally reviewed the therapy plans: [...] Jason Álvarez, DO 04/08/25 * Hamilton, Larisa, [facility] - 04/08/2025 11:48 AM [...] -- Admin Instructions: Open Order & Select [facility] Electrolyte Replacement Protocol Algorithm to [...] mg Daily 04/05/2025 -- Route: Oral heparin 45588 units/250 mL (100 units/mL) in 0.45 % [...] INFECTIOUS DISEASE Progress Note Won Dennis 1980 [id number] Date of Consult: 04/08/2025 Admission Date: 04/04/2025 [...] Oral, Q6H PRN, 500 mg at 04/06/25 8684 OR acetaminophen (TYLENOL) 160 MG/5ML oral solution [...] Jr., MD, 20 mg at 04/07/25950 heparin 05376 units/250 mL (100 units/mL) in 0.45 % [...] Not Applicable, PRN, uSshil Dean Jr., MD nitroglycerin (NITROSTAT) SL tablet [...] (Premix) 500 mL Status: Discontinued Ordering Provider: Uan Perla, PharmD 1,500 mg 333.3 mL/hr over 90 Minutes Intravenous Every 12 Hours 04/05/25 0800 04/05/25 1207 04/04/252004 Pharmacy to dose vancomycin Status: Discontinued Ordering Provider: Leonora Shepherd MD Not Applicable Continuous PRN 04/04/25200404/05/25 1207 04/04/25 194 vancomycin 2750 mg/500 mL 0.9% NS IVPB ([facility]) Ordering Provider: Mario Crowley, DO [...] Units Date/Time FL C Arm During Surgery [[id number]] Resulted: 04/07/252137 Updated: 04/07/252137 Narrative: This procedure was auto-finalized with no dictation required. MRI Tibia Fibula Right With & Without Contrast [[id number]] Collected: 04/07/25 0938 Updated: 04/07/25 1001 Narrative: [...] Buenrostro 04/07/2025 9:58 AM EDT Workstation ID: [id number] Impression: Right BKA stump cellulitis- s/p BKA with multiple surgical interventions with Known MRSA 05/09/2025. (Treated by ID in [place] Dr. Harris). Dr. Torres treated him with [...] from the original note were not included. [facility] Medicine Services PROGRESS NOTE Patient [...] Buenrostro 04/07/2025 9:58 AM EDT Workstation ID: [id number] I have personally reviewed the therapy plans: [...] Jason DO Preeti 04/07/25 * Larisa Hamilton, [facility] - 04/07/2025 11:56 AM [...] INFECTIOUS DISEASE Progress Note Won Dennis 1980 [id number] Date of Consult: 04/07/2025 Admission Date: 04/04/2025 [...] MD, 20 mg at 04/06/25 0900 heparin 82130 units/250 mL (100 units/mL) in 0.45 % [...] With & Without Contrast - In process [[id number]] Resulted: 04/07/25828 Updated: 04/07/25828 This result has not been signed. Information might be incomplete. MRI Tibia Fibula Right With & Without Contrast [[id number]] Collected: 04/04/252256 Updated: 04/04/253 Narrative: MRI TIBIA [...] MD 04/04/2025 11:00 PM EDT Workstation ID: [id number] Impression: Right BKA stump cellulitis- s/p BKA with multiple surgical interventions with Known MRSA 05/09/2025. (Treated by ID in [place] Dr. Harris). Dr. Torres treated him with [...] -- Admin Instructions: Open Order & Select [facility] Electrolyte Replacement Protocol Algorithm to [...] mg Daily 04/05/2025 -- Route: Oral heparin 55929 units/250 mL (100 units/mL) in 0.45 % [...] -- Admin Instructions: Open Order & Select [facility] Electrolyte Replacement Protocol Algorithm to [...] from the original note were not included. [facility] Medicine Services PROGRESS NOTE Patient [...] MD 04/04/2025 11:00 PM EDT Workstation ID: [id number] I have personally reviewed the therapy plans: [...] mg Daily 04/05/2025 -- Route: Oral heparin 35315 units/250 mL (100 units/mL) in 0.45 % [...] -- Admin Instructions: Open Order & Select [facility] Electrolyte Replacement Protocol Algorithm to [...] -- Admin Instructions: Open Order & Select [facility] Electrolyte Replacement Protocol Algorithm to [...] INFECTIOUS DISEASE follow up. Won Dennis 1980 [id number] Date of Consult: 04/06/2025 Admission Date: 04/04/2025 [...] MD, 20 mg at 04/06/25 0900 heparin 80088 units/250 mL (100 units/mL) in 0.45 % [...] Tibia Fibula Right With & Without Contrast [[id number]] Collected: 04/04/252256 Updated: 04/04/252302 Narrative: MRI TIBIA [...] represent a small area of phlegmonous change ([id number] image 10) measuring approximately 1.6 cm which [...] MD 04/04/2025 11:00 PM EDT Workstation ID: [id number] Impression: Right BKA stump cellulitis- s/p BKA with multiple surgical interventions with Known MRSA 05/09/2025. (Treated by ID in [place] Dr. Harris). Dr. Torres treated him with [...] from the original note were not included. [facility] Medicine Services PROGRESS NOTE Patient [...] MD 04/04/2025 11:00 PM EDT Workstation ID: [id number] I have personally reviewed the therapy plans: [...] from the original note were not included. 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 [...] was evaluated in the emergency department in [place], was discharged with instructions for follow-up. He [...] tablet by mouth Daily. 04/03/2025 Morning Lactobacillus-Inulin ([facility]) capsule Take [...] MD 04/04/2025 11:00 PM EDT Workstation ID: [id number] Assessment: Right BKA infection 44-year-old male with [...] DISEASE CONSULT/INITIAL HOSPITAL VISIT Won Dennis 1980 [id number] Date of Consult: 04/05/2025 Admission Date: 04/04/2025 [...] Leonora Shepherd MD, 40 mg at 04/04/25 9191 sennosides-docusate (PERICOLACE) 8.6-50 MG per tablet 2 [...] MD, 20 mg at 04/05/25 09 heparin 12065 units/250 mL (100 units/mL) in 0.45 % [...] Leonora Shepherd MD, 10 mg at 04/04/25 9356 Pharmacy to Dose Heparin, , Not Applicable, [...] Tibia Fibula Right With & Without Contrast [[id number]] Collected: 04/04/252256 Updated: 04/04/252302 Narrative: MRI TIBIA [...] represent a small area of phlegmonous change (iomgpq48 image 10) measuring approximately 1.6 cm which [...] MD 04/04/2025 11:00 PM EDT Workstation ID: [id number] Impression: Right BKA stump cellulitis- s/p BKA with multiple surgical interventions with Known MRSA 05/09/2025. (Treated by ID in [place] Dr. Harris). Dr. Torres treated him with [...] infection POSTOP DIAGNOSIS: Same. PROCEDURE: Right Right 25452: Secondary closure below-knee amputation SURGEON: Sushil Dean MD OPERATIVE TEAM: Pupil Personnel Services Director: Susi Grullon RN Scrub Person: Mary Paredes Scrub Person Extra: Hortencia Toribio Other: Katt Gotti RN; Charis Neville RN ANESTHETIST: Anesthesiologist: Ulises Hoffman MD INTERNATIONAL LOGISTICS COORDINATOR: Stan Casillas CRNA Student Nurse [employer] Solution Architect: Karol Albret SRNA ANESTHESIA: Choice ESTIMATED BLOOD [...] CULTURE (Canceled) Sushil Dean Jr., MD 04/08/25 2654 Description: RIGHT LEG DEEP WOUND FOR CULTURE [...] Jr., MD - 04/07/2025 9:03 PM EDT [facility], [place] [address] OPERATIVE REPORT PATIENT NAME: Won Dennis DATE OF : 1980 PREOP DIAGNOSIS: Right Right below knee amputation stump infection POSTOP DIAGNOSIS: Same. PROCEDURE: Right Right 87030: Incision and drainage of surgical site infection 52275: Debridement of skin, subcutaneous tissue, muscle 92898: Wound vacuum-assisted closure SURGEON: Sushil Dean MD OPERATIVE TEAM: Pupil Personnel Services Director: Anum Sanchez RN Scrub Person: Hortencia Toribio; Gerald Ivey FIRER LOCOMOTIVE: Anesthesiologist: Luci Alonso DO ANESTHESIA: General ESTIMATED [...] this chart in the absence of a product builder. No orders to display RADIOLOGY: [x] Radiologist's [...] discharging home with outpatient infusion at [facility]. He has an appointment with [facility] at 8:00 am tomorrow. They will [...] to get IV ABX at home with [facility]; however, Medicaid lapsed on 04/08. DEBRA was unaware until this morning that Medicaid has lapsed. Patient explained that he has Medicare A and B. CM spoke with KELLEE and given themhis Medicare number [id number], she sent it to Admission. DEBRA spoke with Kerri, with [facility], and explained that he had Medicare A and B. However, it will not cover home infusion. It will be $64.00 a day out of packet. Patients can go to the Infusion center at [facility], and it will cover the cost as an outpatient. He will need to go there every day for infusion. They will be able to do the patients' PICC line dressing changes and lab work. DEBRA called [facility] infusion center they can accept patient and start him. He is known for their facility. The Facility will need to run it through his insurance first. CM faxed the orders over to [facility] at [phone]. CM will follow up with them tomorrow at [facility] to make sure they received the [...] 04/09/2025 2:51 PM EDT [facility] Patient Name: Won Dennis Today's Date: 04/09/2025 Admit Date: 04/04/2025 Plan: Home Discharge Plan Row Name 04/09/25 1311 Plan Plan Home Patient/Family in Agreement with Plan yes Plan Comments CM spoke with patient at bedside today. Wheelchair from [employer] is at bedside. Patient getting PICC [...] note were not included. Discharge Planning Assessment [facility] Patient Name: Won Dennis Today's [...] with family Patient/Family Anticipated Services at Transition human services case managergeriatric case manager Anticipated family or friend will provide Discharge Needs Assessment Equipment Currently Used at Home glucometer;shower chair;pulse ox;bp cuff;prosthesis;crutches Equipment Needed After Discharge none Discharge Plan Row Name 04/07/25 1144 Plan Plan Home Patient/Family in Agreement with Plan yes Plan Comments CM spoke with patient at bedside today. Patient lives with and his 5 kids in [place]. 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 He has walker, cane, shower chair, and crutches. He requested a wheelchair for home. CM [facility] He is not current with home health services. PCP is Dr. Jordan. Insurance is [employer] [place]. Patient discharge plan is home [...] CBC Auto Differential (04/11/2025 3:40 AM EDT) [facility] WBC 7.87 3.40 - 10.80 10*3/mm3 04/11/2025 4:02 AM EDT [facility] RBC 4.70 4.14 - 5.80 10*6/mm3 04/11/2025 4:02 AM [facility] Hemoglobin 12.8(L) 13.0 - 17.7 g/dL 04/11/2025 4:02 AM [facility] Hematocrit 40.5 37.5 - 51.0 % 04/11/2025 4:02 AM [facility] MCV 86.2 79.0 - 97.0 fL 04/11/2025 4:02 [facility] MCH 27.2 26.6 - 33.0 pg 04/11/2025 4:02 AM [facility] MCHC 31.6 31.5 - 35.7 g/dL 04/11/2025 4:02 AM [facility] RDW 12.9 12.3 - 15.4 % 04/11/2025 4:02 AM [facility] RDW-SD 40.5 37.0 - 54.0 fl 04/11/2025 4:02 AM [facility] MPV 9.2 6.0 - 12.0 fL 04/11/2025 4:02 AM [facility] Platelets 267 140 - 450 10*3/mm3 04/11/2025 4:02 AM [facility] Neutrophil % 59.5 42.7 - 76.0 % 04/11/2025 4:02 AM [facility] Lymphocyte % 26.3 19.6 - 45.3 % 04/11/2025 4:02 AM [facility] Monocyte % 9.3 5.0 - 12.0 % 04/11/2025 4:02 AM [facility] Eosinophil % 4.1 0.3 - 6.2 % 04/11/2025 4:02 AM [facility] Basophil % 0.4 0.0 - 1.5 % 04/11/2025 4:02 AM [facility] Immature Grans % 0.4 0.0 - 0.5 % 04/11/2025 4:02 AM [facility] Neutrophils, Absolute 4.69 1.70 - 7.00 10*3/mm3 04/11/2025 4:02 AM EDT [facility] Lymphocytes, Absolute 2.07 0.70 - 3.10 10*3/mm3 04/11/2025 4:02 AM EDT [facility] Monocytes, Absolute 0.73 0.10 - 0.90 10*3/mm3 04/11/2025 4:02 AM EDT [facility] Eosinophils, Absolute 0.32 0.00 - 0.40 10*3/mm3 04/11/2025 4:02 AM EDT [facility] Basophils, Absolute 0.03 0.00 - 0.20 10*3/mm3 04/11/2025 4:02 AM EDT [facility] Immature Grans, Absolute 0.03 0.00 - 0.05 10*3/mm3 04/11/2025 4:02 AM EDT [facility] nRBC 0.0 0.0 - 0.2 /100 WBC 04/11/2025 4:02 AM EDT [facility] Blood Venipuncture / Unknown 04/11/2025 3:40 AM EDT 04/11/2025 3:59 AM EDT us Sushil Dean Jr., MD LAB BLOOD ORDERABLES Fi nal Result [facility]
[address] [place] [address], * (ABNORMAL) Comprehensive Metabolic Panel (04/11/2025 3:40 AM EDT) [facility] Signature Glucose 108(H) 65 - 99 mg/dL 04/11/2025 4:19 AM EDT [facility] BUN 12.5 6.0 - 20.0 mg/dL 04/11/2025 4:19 AM EDT [facility] Creatinine 0.68(L) 0.76 - 1.27 mg/dL 04/11/2025 4:19 AM [facility] Sodium 140 136 - 145 mmol/L 04/11/2025 4:19 AM [facility] Potassium 3.8 3.5 - 5.2 mmol/L 04/11/2025 4:19 AM [facility] Chloride 105 98 - 107 mmol/L 04/11/2025 4:19 AM [facility] CO2 28.2 22.0 - 29.0 mmol/L 04/11/2025 4:19 AM [facility] Calcium 8.2(L) 8.6 - 10.5 mg/dL 04/11/2025 4:19 AM [facility] Total Protein 6.1 6.0 - 8.5 g/dL 04/11/2025 4:19 AM [facility] Albumin 3.1(L) 3.5 - 5.2 g/dL 04/11/2025 4:19 AM [facility] ALT (SGPT) 52(H) 1 - 41 U/L 04/11/2025 4:19 AM [facility] AST (SGOT) 40 1 - 40 U/L 04/11/2025 4:19 AM [facility] Alkaline Phosphatase 99 39 - 117 U/L 04/11/2025 4:19 AM [facility] Total Bilirubin 0.2 0.0 - 1.2 mg/dL 04/11/2025 4:19 AM [facility] Globulin 3.0 gm/dL 04/11/2025 4:19 AM [facility] Comment:Calculated Result A/G Ratio 1.0 g/dL 04/11/2025 4:19 AM [facility] BUN/Creatinine Ratio 18.4 7.0 - 25.0 04/11/2025 4:19 AM [facility] Anion Gap 6.8 5.0 - 15.0 mmol/L 04/11/2025 4:19 AM [facility] eGFR 117.5 >60.0 mL/min/1.7 3 04/11/2025 4:19 AM EDT [facility] Blood Venipuncture / [...] include race as a factor Rosario Hill 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 LAB BLOOD ORDERABLES Final Result [facility]
[address] [place] [address], * (ABNORMAL) CBC Auto Differential (04/10/2025 3:46 AM EDT) WBC 9.60 3.40 - 10.80 10*3/mm3 04/10/2025 3:56 AM EDT [facility] RBC 4.67 4.14 - 5.80 10*6/mm3 04/10/2025 3:56 AM EDT [facility] Hemoglobin 12.9(L) 13.0 - 17.7 g/dL 04/10/2025 3:56 AM EDT [facility] Hematocrit 40.1 37.5 - 51.0 % 04/10/2025 3:56 AM EDT [facility] MCV 85.9 79.0 - 97.0 fL 04/10/2025 3:56 AM EDT [facility] MCH 27.6 26.6 - 33.0 pg 04/10/2025 3:56 AM EDT [facility] MCHC 32.2 31.5 - 35.7 g/dL 04/10/2025 3:56 AM [facility] RDW 12.9 12.3 - 15.4 % 04/10/2025 3:56 AM [facility] RDW-SD 40.5 37.0 - 54.0 fl 04/10/2025 3:56 AM [facility] MPV 9.5 6.0 - 12.0 fL 04/10/2025 3:56 AM EDT [facility] Platelets 227 140 - 450 10*3/mm3 04/10/2025 3:56 AM [facility] Neutrophil % 59.1 42.7 - 76.0 % 04/10/2025 3:56 AM [facility] Lymphocyte % 29.0 19.6 - 45.3 % 04/10/2025 3:56 AM [facility] Monocyte % 8.1 5.0 - 12.0 % 04/10/2025 3:56 AM [facility] Eosinophil % 3.2 0.3 - 6.2 % 04/10/2025 3:56 AM [facility] Basophil % 0.4 0.0 - 1.5 % 04/10/2025 3:56 AM [facility] Immature Grans % 0.2 0.0 - 0.5 % 04/10/2025 3:56 AM [facility] Neutrophils, Absolute 5.67 1.70 [...] - 0.20 10*3/mm3 04/10/2025 3:56 AM EDT [facility] Immature Grans, Absolute 0.02 0.00 - 0.05 10*3/mm3 04/10/2025 3:56 AM EDT [facility] nRBC 0.0 0.0 - 0.2 /100 WBC 04/10/2025 3:56 AM EDT [facility] Blood Venipuncture / Unknown 04/10/2025 3:46 AM EDT 04/10/2025 3:53 AM EDT us Jason Álvarez DO LAB BLOOD ORDERABLES Final Resul t [facility]
[address] [place] [address], * (ABNORMAL) Basic Metabolic Panel (04/10/2025 3:46 AM EDT) Glucose 125(H) 65 - 99 mg/dL 04/10/2025 4:20 AM EDT [facility] BUN 15.9 6.0 - 20.0 mg/dL 04/10/2025 4:20 AM EDT [facility] Creatinine 0.77 0.76 - 1.27 mg/dL 04/10/2025 4:20 AM EDT [facility] Sodium 137 136 - 145 mmol/L 04/10/2025 4:20 AM EDT [facility] Potassium 3.9 3.5 - 5.2 mmol/L 04/10/2025 4:20 AM EDT [facility] Chloride 102 98 - 107 mmol/L 04/10/2025 4:20 AM EDT [facility] CO2 26.9 22.0 - 29.0 mmol/L 04/10/2025 4:20 AM EDT [facility] Calcium 7.9(L) 8.6 - 10.5 mg/dL 04/10/2025 4:20 AM EDT [facility] BUN/Creatinine Ratio 20.6 7.0 - 25.0 04/10/2025 4:20 AM EDT [facility] Anion Gap 8.1 5.0 - 15.0 mmol/L 04/10/2025 4:20 AM EDT [facility] eGFR 113.2 >60.0 mL/min/1.7 3 04/10/2025 4:20 AM EDT [facility] Blood Venipuncture / Unknown 04/10/2025 3:46 AM EDT 04/10/2025 3:52 AM EDT Narrative [facility] - 04/10/2025 4:20 AM [...] DO LAB BLOOD ORDERABLES Final Resul t [facility]
[address] [place] [address], * Heparin Anti-Xa (04/10/2025 3:46 AM EDT) Heparin Anti-Xa (UFH) 0.35 0.30 - 0.70 IU/ml 04/10/2025 4:23 AM EDT [facility] Blood Venipuncture / Unknown 04/10/2025 3:46 AM EDT 04/10/2025 3:53 AM EDT Larisa Hamilton [facility] LAB BLOOD ORDERABLES Final R esult [facility]
[address] [place] [address], * Heparin Anti-Xa (04/09/2025 10:05 AM EDT) Pathologist [facility] [place] Heparin Anti-Xa (UFH) 0.36 0.30 - 0.70 IU/ml 04/09/2025 11:12 AM EDT [facility] Blood Venipuncture / Unknown 04/09/2025 10:05 AM EDT 04/09/2025 10:47 AM EDT Larisa Hamilton [facility] LAB BLOOD ORDERABLES Final R esult [facility]
[address] [place] [address], * (ABNORMAL) CBC Auto Differential (04/09/2025 4:18 AM EDT) Pathologist [facility] [place] WBC 11.00(H) 3.40 - 10.80 10*3/mm3 04/09/2025 4:50 AM EDT [facility] RBC 4.70 4.14 - 5.80 10*6/mm3 04/09/2025 4:50 AM EDT [facility] Hemoglobin 13.0 13.0 - 17.7 g/dL 04/09/2025 4:50 AM EDT [facility] Hematocrit 40.4 37.5 - 51.0 % 04/09/2025 4:50 AM EDT [facility] MCV 86.0 79.0 - 97.0 fL 04/09/2025 4:50 AM EDT [facility] MCH 27.7 26.6 - 33.0 pg 04/09/2025 4:50 AM EDT [facility] MCHC 32.2 31.5 - 35.7 g/dL 04/09/2025 4:50 AM EDT [facility] RDW 12.8 12.3 - 15.4 % 04/09/2025 4:50 AM [facility] RDW-SD 39.9 37.0 - 54.0 fl 04/09/2025 4:50 AM [facility] MPV 10.0 6.0 - 12.0 fL 04/09/2025 4:50 AM [facility] Platelets 211 140 - 450 10*3/mm3 04/09/2025 4:50 AM [facility] Neutrophil % 74.8 42.7 - 76.0 % 04/09/2025 4:50 AM [facility] Lymphocyte % 15.4(L) 19.6 - 45.3 % 04/09/2025 4:50 AM [facility] Monocyte % 8.5 5.0 - 12.0 % 04/09/2025 4:50 AM [facility] Eosinophil % 0.6 0.3 - 6.2 % 04/09/2025 4:50 AM [facility] Basophil % 0.4 0.0 - 1.5 % 04/09/2025 4:50 AM [facility] Immature Grans % 0.3 0.0 - 0.5 % 04/09/2025 4:50 AM [facility] Neutrophils, Absolute 8.23(H) 1.70 - 7.00 10*3/mm3 04/09/2025 4:50 AM [facility] Lymphocytes, Absolute 1.69 0.70 - 3.10 10*3/mm3 04/09/2025 4:50 AM [facility] Monocytes, Absolute 0.94(H) 0.10 - 0.90 10*3/mm3 04/09/2025 4:50 AM [facility] Eosinophils, Absolute 0.07 0.00 - 0.40 10*3/mm3 04/09/2025 4:50 AM [facility] Basophils, Absolute 0.04 0.00 - 0.20 10*3/mm3 04/09/2025 4:50 AM [facility] Immature Grans, Absolute 0.03 0.00 - 0.05 10*3/mm3 04/09/2025 4:50 AM EDT [facility] nRBC 0.0 0.0 - 0.2 /100 WBC 04/09/2025 4:50 AM EDT [facility] Blood Venipuncture / Unknown 04/09/2025 4:18 AM EDT 04/09/2025 4:31 AM EDT Sushil Dean Jr., MD LAB BLOOD ORDERABLES Fi nal Result [facility]
[address] [place] [address], * Heparin Anti-Xa (04/09/2025 4:18 AM EDT) Heparin Anti-Xa (UFH) 0.41 0.30 - 0.70 IU/ml 04/09/2025 4:53 AM EDT [facility] Blood Venipuncture / Unknown 04/09/2025 4:18 AM EDT 04/09/2025 4:31 AM EDT Una LundbergD LAB BLOOD ORDERABLES Final R esult [facility]
[address] [place] [address], * (ABNORMAL) Basic Metabolic Panel (04/09/2025 4:18 AM EDT) Glucose 147(H) 65 - 99 mg/dL 04/09/2025 5:33 AM EDT [facility] BUN 23.0(H) 6.0 - 20.0 mg/dL 04/09/2025 5:33 AM EDT [facility] Creatinine 1.15 0.76 - 1.27 mg/dL 04/09/2025 5:33 AM EDT [facility] Sodium 135(L) 136 - 145 mmol/L 04/09/2025 5:33 AM EDT [facility] Potassium 4.2 3.5 - 5.2 mmol/L 04/09/2025 5:33 AM EDT [facility] Chloride 100 98 - 107 mmol/L 04/09/2025 5:33 AM EDT [facility] CO2 26.0 22.0 - 29.0 mmol/L 04/09/2025 5:33 AM EDT [facility] Calcium 8.2(L) 8.6 - 10.5 mg/dL 04/09/2025 5:33 AM EDT [facility] BUN/Creatinine Ratio 20.0 7.0 - 25.0 04/09/2025 5:33 AM EDT [facility] Anion Gap 9.0 5.0 - 15.0 mmol/L 04/09/2025 5:33 AM EDT [facility] eGFR 80.5 >60.0 mL/min/1.7 3 04/09/2025 5:33 AM EDT [facility] Blood Venipuncture / Unknown 04/09/2025 4:18 AM EDT 04/09/2025 4:29 AM EDT [facility] - 04/09/2025 5:33 AM EDT GFR [...] MD LAB BLOOD ORDERABLES Fi nal Result [facility]
[address] [place] [address], * Wound Culture - Swab, Leg, Right (04/08/2025 3:40 PM EDT) Wound Culture No growth at 3 days ALIZA 04/11/2025 10:40 AM EDT [facility] Gram Stain Few (2+) WBCs seen 04/11/2025 10:40 AM EDT [facility] Gram Stain No organisms seen 04/11/2025 10:40 AM EDT [facility] Swab Structure of right lower limb / Unknown 04/08/2025 3:40 PM EDT 04/08/2025 8:05 PM EDT Sushil Dean Jr., MD MICROBIOLOGY - GENERAL ORDERABLES Final Result Performing Organization Address City/[facility]/ZIP Co de Phone Number [facility]
[address] [place] [address], [facility]
[address] [place] [address], * Anaerobic Culture - Swab, Leg, Right [...] Final Result [facility]
[address] [place] [address], * Scan Slide (04/08/2025 8:41 AM EDT) RBC Morphology Normal Normal 04/08/2025 11:02 AM EDT [facility] WBC Morphology Normal Normal 04/08/2025 11:02 AM EDT [facility] Platelet Estimate Adequate Normal 04/08/2025 11:02 AM EDT [facility] Clumped Platelets Present None Seen 04/08/2025 11:02 AM EDT [facility] Blood Venipuncture / Unknown 04/08/2025 8:41 AM EDT 04/08/2025 9:10 AM EDT Una Minda PharmD LAB BLOOD ORDERABLES Final R esult [facility]
[address] [place] [address], * (ABNORMAL) CBC Auto Differential (04/08/2025 8:41 AM EDT) WBC 10.07 3.40 - 10.80 10*3/mm3 04/08/2025 11:02 AM EDT [facility] RBC 5.01 4.14 - 5.80 10*6/mm3 04/08/2025 11:02 AM EDT [facility] Hemoglobin 14.0 13.0 - 17.7 g/dL 04/08/2025 11:02 AM EDT [facility] Hematocrit 42.7 37.5 - 51.0 % 04/08/2025 11:02 AM EDT [facility] MCV 85.2 79.0 - 97.0 fL 04/08/2025 11:02 AM EDT [facility] MCH 27.9 26.6 - 33.0 pg 04/08/2025 11:02 AM EDT [facility] MCHC 32.8 31.5 - 35.7 g/dL 04/08/2025 11:02 AM EDT [facility] RDW 12.6 12.3 - 15.4 % 04/08/2025 11:02 AM EDT [facility] RDW-SD 38.9 37.0 - 54.0 fl 04/08/2025 11:02 AM [facility] MPV 11.0 6.0 - 12.0 fL 04/08/2025 11:02 AM [facility] Platelets 118(L) 140 - 450 10*3/mm3 04/08/2025 11:02 AM [facility] Neutrophil % 85.1(H) 42.7 - 76.0 % 04/08/2025 11:02 AM [facility] Lymphocyte % 9.3(L) 19.6 - 45.3 % 04/08/2025 11:02 AM [facility] Monocyte % 4.6(L) 5.0 - 12.0 % 04/08/2025 11:02 AM [facility] Eosinophil % 0.3 0.3 - 6.2 % 04/08/2025 11:02 AM [facility] Basophil % 0.2 0.0 - 1.5 % 04/08/2025 11:02 AM [facility] Immature Grans % 0.5 0.0 - 0.5 % 04/08/2025 11:02 AM [facility] Neutrophils, Absolute 8.57(H) 1.70 - 7.00 10*3/mm3 04/08/2025 11:02 AM [facility] Lymphocytes, Absolute 0.94 0.70 - 3.10 10*3/mm3 04/08/2025 11:02 AM [facility] Monocytes, Absolute 0.46 0.10 - 0.90 10*3/mm3 04/08/2025 11:02 AM [facility] Eosinophils, Absolute 0.03 0.00 - 0.40 10*3/mm3 04/08/2025 11:02 AM [facility] Basophils, Absolute 0.02 0.00 - 0.20 10*3/mm3 04/08/2025 11:02 AM [facility] Immature Grans, Absolute 0.05 0.00 - 0.05 10*3/mm3 04/08/2025 11:02 AM EDT [facility] nRBC 0.0 0.0 - 0.2 /100 WBC 04/08/2025 11:02 AM EDT [facility] Blood Venipuncture / Unknown 04/08/2025 8:41 AM EDT 04/08/2025 9:10 AM EDT Una Perla PharmD LAB BLOOD ORDERABLES Final R esult [facility]
[address] [place] [address], * (ABNORMAL) Basic Metabolic Panel (04/08/2025 8:41 AM EDT) Glucose 125(H) 65 - 99 mg/dL 04/08/2025 9:51 AM EDT [facility] BUN 13.2 6.0 - 20.0 mg/dL 04/08/2025 9:51 AM EDT [facility] Creatinine 0.69(L) 0.76 - 1.27 mg/dL 04/08/2025 9:51 AM EDT [facility] Sodium 136 136 - 145 mmol/L 04/08/2025 9:51 AM EDT [facility] Potassium 4.6 3.5 - 5.2 mmol/L 04/08/2025 9:51 AM EDT [facility] Chloride 102 98 - 107 mmol/L 04/08/2025 9:51 AM EDT [facility] CO2 23.5 22.0 - 29.0 mmol/L 04/08/2025 9:51 AM EDT [facility] Calcium 8.4(L) 8.6 - 10.5 mg/dL 04/08/2025 9:51 AM EDT [facility] BUN/Creatinine Ratio 19.1 7.0 - 25.0 04/08/2025 9:51 AM EDT [facility] Anion Gap 10.5 5.0 - 15.0 mmol/L 04/08/2025 9:51 AM EDT [facility] eGFR 117.0 >60.0 mL/min/1.7 3 04/08/2025 9:51 AM EDT [facility] Blood Venipuncture / Unknown 04/08/2025 8:41 AM EDT 04/08/2025 9:09 AM EDT Narrative [facility] - 04/08/2025 9:51 AM [...] ORDERABLES Fi nal Result Performing Organization Address City/[facility]/ZIP Co de Phone Number [facility]
[address] [place] [address], * Heparin Anti-Xa (04/08/2025 8:41 AM EDT) Heparin Anti-Xa (UFH) 0.33 0.30 - 0.70 IU/ml 04/08/2025 9:40 AM EDT [facility] Blood Venipuncture / Unknown 04/08/2025 8:41 AM EDT 04/08/2025 9:10 AM EDT us Sushil Dean Jr., MD LAB BLOOD ORDERABLES Fi nal Result [facility]
[address] [place] [address], * FL C Arm During Surgery (04/07/2025 [...] Occasional WBCs seen 04/11/2025 10:40 AM EDT [facility] Gram Stain No organisms seen 04/11/2025 10:40 AM EDT [facility] Swab Structure of right lower limb / Unknown Collection / Unknown 04/07/2025 9:14 PM EDT 04/08/2025 4:36 AM EDT us Sushil Dean Jr., MD MICROBIOLOGY - GENERAL ORDERABLES Final Result Performing Organization Address City/[facility]/ZIP Co de Phone Number [facility]
[address] [place] [address], [facility]
[address] [place] [address], * Anaerobic Culture - Swab, Leg, Right (04/07/2025 9:14 PM EDT) Anaerobic Culture No anaerobes isolated at 5 days ALIZA 04/13/2025 7:21 AM EDT [facility] Swab Structure of right lower limb / Unknown Collection / Unknown 04/07/2025 9:14 PM EDT 04/08/2025 4:36 AM EDT us Sushil Dean Jr., MD MICROBIOLOGY - GENERAL ORDERABLES Final Result [facility]
[address] [place] [address], * Anaerobic Culture - Tissue, Leg (04/07/2025 [...] Final Result [facility]
[address] [place] [address], * Tissue / Bone Culture - Tissue, Leg, Right (04/07/2025 9:13 PM EDT) [facility] Tissue Culture No growth at 3 days ALIZA 04/11/2025 10:36 AM EDT [facility] Gram Stain Rare (1+) WBCs seen 04/11/2025 10:36 AM EDT [facility] Gram Stain No organisms seen 04/11/2025 10:36 AM EDT [facility] Tissue Structure of right lower limb / Unknown 04/07/2025 9:13 PM EDT 04/08/2025 4:54 AM EDT Sushil Dean Jr., MD MICROBIOLOGY - GENERAL ORDERABLES Final Result [facility]
[address] [place] [address], [facility]
[address] [place] [address], * (ABNORMAL) Wound Culture - Swab, Leg, Right (04/07/2025 9:07 PM EDT) Pathologist [facility] [place] Wound Culture Light growth (2+) Staphylococcus aureus, MRSA(A) ALIZA 04/10/2025 10:38 AM EDT [facility] Comment: Methicillin resistant Staphylococcus aureus, Patient may be an isolation risk. Gram Stain Few (2+) WBCs seen 04/10/2025 10:38 AM EDT [facility] Gram Stain No organisms seen 10:38 AM EDT [facility] Swab Structure of right [...] Final Result [facility]
[address] [place] [address], [place] [phone] [facility]
[address] [place] [address], [place] [phone] * Anaerobic Culture - Swab, Leg, Right (04/07/2025 9:07 PM EDT) Anaerobic Culture No anaerobes isolated at 5 days ALIZA 04/13/2025 7:21 AM EDT [facility] Swab Structure of right lower limb / Unknown Collection / Unknown 04/07/2025 9:07 PM EDT 04/08/2025 4:36 AM EDT us Sushil Dean Jr., MD MICROBIOLOGY - GENERAL ORDERABLES Final Result [facility]
[address] [place] [address], * Heparin Anti-Xa (04/07/2025 9:10 AM EDT) [facility] Heparin Anti-Xa (UFH) 0.30 0.30 - 0.70 IU/ml 04/07/2025 10:12 AM EDT [facility] Blood Venipuncture / Unknown 04/07/2025 9:10 AM EDT 04/07/2025 9:38 AM EDT Una Perla PharmD LAB BLOOD ORDERABLES Final R esult [facility]
[address] [place] [address], * (ABNORMAL) CBC Auto Differential (04/07/2025 9:10 AM EDT) [facility] WBC 8.63 3.40 - 10.80 10*3/mm3 04/07/2025 9:50 AM EDT [facility] RBC 5.23 4.14 - 5.80 10*6/mm3 04/07/2025 9:50 AM EDT [facility] Hemoglobin 14.7 13.0 - 17.7 g/dL 04/07/2025 9:50 AM EDT [facility] Hematocrit 44.8 37.5 - 51.0 % 04/07/2025 9:50 AM EDT [facility] MCV 85.7 79.0 - 97.0 fL 04/07/2025 9:50 AM EDT [facility] MCH 28.1 26.6 - 33.0 pg 04/07/2025 9:50 AM EDT [facility] MCHC 32.8 31.5 - 35.7 g/dL 04/07/2025 9:50 AM EDT [facility] RDW 12.8 12.3 - 15.4 % 04/07/2025 9:50 AM [facility] RDW-SD 39.9 37.0 - 54.0 fl 04/07/2025 9:50 AM [facility] MPV 10.8 6.0 - 12.0 fL 04/07/2025 9:50 AM [facility] Platelets 149 140 - 450 10*3/mm3 04/07/2025 9:50 AM [facility] Neutrophil % 66.7 42.7 - 76.0 % 04/07/2025 9:50 AM [facility] Lymphocyte % 20.5 19.6 - 45.3 % 04/07/2025 9:50 AM [facility] Monocyte % 9.8 5.0 - 12.0 % 04/07/2025 9:50 AM [facility] Eosinophil % 2.1 0.3 - 6.2 % 04/07/2025 9:50 AM [facility] Basophil % 0.3 0.0 - 1.5 % 04/07/2025 9:50 AM [facility] Immature Grans % 0.6(H) 0.0 - 0.5 % 04/07/2025 9:50 AM [facility] Neutrophils, Absolute 5.75 1.70 - 7.00 10*3/mm3 04/07/2025 9:50 AM [facility] Lymphocytes, Absolute 1.77 0.70 - 3.10 10*3/mm3 04/07/2025 9:50 AM [facility] Monocytes, Absolute 0.85 0.10 - 0.90 10*3/mm3 04/07/2025 9:50 AM [facility] Eosinophils, Absolute 0.18 0.00 - 0.40 10*3/mm3 04/07/2025 9:50 AM [facility] Basophils, Absolute 0.03 0.00 - 0.20 10*3/mm3 04/07/2025 9:50 AM [facility] Immature Grans, Absolute 0.05 0.00 - 0.05 10*3/mm3 04/07/2025 9:50 AM EDT [facility] nRBC 0.0 0.0 - 0.2 /100 WBC 04/07/2025 9:50 AM EDT [facility] Blood Venipuncture / Unknown 04/07/2025 9:10 AM EDT 04/07/2025 9:38 AM EDT Jasonalfonso Álvarez LAB BLOOD ORDERABLES Final Resul t [facility]
[address] [place] [address], * (ABNORMAL) Basic Metabolic Panel (04/07/2025 9:10 AM EDT) Glucose 112(H) 65 - 99 mg/dL 04/07/2025 10:19 AM EDT [facility] BUN 13.1 6.0 - 20.0 mg/dL 04/07/2025 10:19 AM EDT [facility] Creatinine 0.77 0.76 - 1.27 mg/dL 04/07/2025 10:19 AM EDT [facility] Sodium 139 136 - 145 mmol/L 04/07/2025 10:19 AM EDT [facility] Potassium 4.2 3.5 - 5.2 mmol/L 04/07/2025 10:19 AM EDT [facility] Comment:Specimen hemolyzed. Result may be falsely elevated. Chloride 105 98 - 107 mmol/L 04/07/2025 10:19 AM EDT [facility] CO2 24.8 22.0 - 29.0 mmol/L 04/07/2025 10:19 AM EDT [facility] Calcium 8.6 8.6 - 10.5 mg/dL 04/07/2025 10:19 AM EDT [facility] BUN/Creatinine Ratio 17.0 7.0 - 25.0 04/07/2025 10:19 AM EDT [facility] Anion Gap 9.2 5.0 - 15.0 mmol/L 04/07/2025 10:19 AM EDT [facility] eGFR 113.2 >60.0 mL/min/1.7 3 04/07/2025 10:19 AM EDT [facility] Blood Venipuncture / Unknown 04/07/2025 9:10 AM EDT 04/07/2025 9:38 AM EDT Narrative [facility] - 04/07/2025 10:19 AM [...] Álvarez LAB BLOOD ORDERABLES Final Resul t [facility]
[address] [place] [address], * MRI Tibia Fibula Right With & [...] [place] 04/07/2025 9:58 AM EDT Workstation ID: [id number] Narrative 04/07/2025 9:58 AM EDT MRI TIBIA [...] [place] 04/07/2025 9:58 AM EDT Workstation ID: [id number] Sushil Dean Jr., MD IM MRI ORDERABLES Mary Beth l Result * Heparin Anti-Xa (04/07/2025 1:42 AM EDT) [facility] Heparin Anti-Xa (UFH) 0.38 0.30 - 0.70 IU/ml 04/07/2025 2:14 AM EDT [facility] Blood Venipuncture / Unknown 04/07/2025 1:42 AM EDT 04/07/2025 1:54 AM EDT Chelsie Turpin [facility] LAB BLOOD ORDERABLES Final R esult [facility]
[address] [place] [address], * Heparin Anti-Xa (04/06/2025 7:16 PM EDT) [facility] Heparin Anti-Xa (UFH) 0.33 0.30 - 0.70 IU/ml 04/06/2025 7:50 PM EDT [facility] Blood Venipuncture / Unknown 04/06/2025 7:16 PM EDT 04/06/2025 7:35 PM EDT Cherri Beatty RP LAB BLOOD ORDERABLES Final Res ult Performing Organization Address City/[facility]/ZIP Co de Phone Number [facility]
[address] [place] [address], * Potassium (04/06/2025 7:16 PM EDT) Potassium 4.0 3.5 - 5.2 mmol/L 04/06/2025 7:53 PM EDT [facility] Blood Venipuncture / Unknown 04/06/2025 7:16 PM EDT 04/06/2025 7:35 PM EDT Jason Álvarez DO LAB BLOOD ORDERABLES Final Resul t Performing Organization Address [facility] de Phone Number [facility]
[address] [place] [address], * (ABNORMAL) Heparin Anti-Xa (04/06/2025 12:36 PM EDT) Heparin Anti-Xa (UFH) 0.24(L) 0.30 - 0.70 IU/ml 04/06/2025 1:23 PM EDT [facility] Blood Venipuncture / Unknown 04/06/2025 12:36 PM EDT 04/06/2025 1:07 PM EDT Una LundbergD LAB BLOOD ORDERABLES Final R esult Performing Organization Address [facility] Co de Phone Number [facility]
[address] [place] [address], * (ABNORMAL) Heparin Anti-Xa (04/06/2025 3:42 AM EDT) Heparin Anti-Xa (UFH) 0.25(L) 0.30 - 0.70 IU/ml 04/06/2025 5:30 AM EDT [facility] Blood Venipuncture / Unknown 04/06/2025 3:42 AM EDT 04/06/2025 4:59 AM EDT Chelsie Turpin [facility] LAB BLOOD ORDERABLES Final R esult [facility]
[address] [place] [address], * (ABNORMAL) Basic Metabolic Panel (04/06/2025 3:42 AM EDT) Pathologist [facility] Glucose 94 65 - 99 mg/dL 04/06/2025 5:59 AM EDT [facility] BUN 12.8 6.0 - 20.0 mg/dL 04/06/2025 5:59 AM EDT [facility] Creatinine 0.80 0.76 - 1.27 mg/dL 04/06/2025 5:59 AM EDT [facility] Sodium 138 136 - 145 mmol/L 04/06/2025 5:59 AM EDT [facility] Potassium 3.6 3.5 - 5.2 mmol/L 04/06/2025 5:59 AM EDT [facility] Chloride 103 98 - 107 mmol/L 04/06/2025 5:59 AM EDT [facility] CO2 24.2 22.0 - 29.0 mmol/L 04/06/2025 5:59 AM EDT [facility] Calcium 8.0(L) 8.6 - 10.5 mg/dL 04/06/2025 5:59 AM EDT [facility] BUN/Creatinine Ratio 16.0 7.0 - 25.0 04/06/2025 5:59 AM EDT [facility] Anion Gap 10.8 5.0 - 15.0 mmol/L 04/06/2025 5:59 AM EDT [facility] eGFR 111.9 >60.0 mL/min/1.7 3 04/06/2025 5:59 AM EDT [facility] Blood Venipuncture / Unknown 04/06/2025 3:42 AM EDT 04/06/2025 5:20 AM EDT [facility] - 04/06/2025 5:59 AM EDT GFR [...] DO LAB BLOOD ORDERABLES Final Resul t [facility]
[address] [place] [address], * (ABNORMAL) CBC Auto Differential (04/06/2025 3:41 AM EDT) WBC 10.86(H) 3.40 - 10.80 10*3/mm3 04/06/2025 5:04 AM EDT [facility] RBC 5.08 4.14 - 5.80 10*6/mm3 04/06/2025 5:04 AM EDT [facility] Hemoglobin 13.9 13.0 - 17.7 g/dL 04/06/2025 5:04 AM EDT [facility] Hematocrit 43.7 37.5 - 51.0 % 04/06/2025 5:04 AM EDT [facility] MCV 86.0 79.0 - 97.0 fL 04/06/2025 5:04 AM [facility] MCH 27.4 26.6 - 33.0 pg 04/06/2025 5:04 AM [facility] MCHC 31.8 31.5 - 35.7 g/dL 04/06/2025 5:04 AM [facility] RDW 12.8 12.3 - 15.4 % 04/06/2025 5:04 AM [facility] RDW-SD 40.0 37.0 - 54.0 fl 04/06/2025 5:04 AM [facility] MPV 11.7 6.0 - 12.0 fL 04/06/2025 5:04 AM [facility] Platelets 115(L) 140 - 450 10*3/mm3 04/06/2025 5:04 AM [facility] Neutrophil % 65.3 42.7 - 76.0 % 04/06/2025 5:04 AM [facility] Lymphocyte % 20.5 19.6 - 45.3 % 04/06/2025 5:04 AM [facility] Monocyte % 11.8 5.0 - 12.0 % 04/06/2025 5:04 AM [facility] Eosinophil % 1.8 0.3 - 6.2 % 04/06/2025 5:04 AM [facility] Basophil % 0.3 0.0 - 1.5 % 04/06/2025 5:04 AM [facility] Immature Grans % 0.3 0.0 - 0.5 % 04/06/2025 5:04 AM [facility] Neutrophils, Absolute 7.09(H) 1.70 - 7.00 10*3/mm3 04/06/2025 5:04 AM [facility] Lymphocytes, Absolute 2.23 0.70 - 3.10 10*3/mm3 04/06/2025 5:04 AM [facility] Monocytes, Absolute 1.28(H) 0.10 - 0.90 10*3/mm3 04/06/2025 5:04 AM EDT [facility] Eosinophils, Absolute 0.20 0.00 - 0.40 10*3/mm3 04/06/2025 5:04 AM EDT [facility] Basophils, Absolute 0.03 0.00 - 0.20 10*3/mm3 04/06/2025 5:04 AM EDT [facility] Immature Grans, Absolute 0.03 0.00 - 0.05 10*3/mm3 04/06/2025 5:04 AM EDT [facility] nRBC 0.0 0.0 - 0.2 /100 WBC 04/06/2025 5:04 AM EDT [facility] Blood Venipuncture / Unknown 04/06/2025 3:41 AM EDT 04/06/2025 4:58 AM EDT Jason Álvarez DO LAB BLOOD ORDERABLES Final Resul t Performing Organization Address City/[facility]/ZIP Co de Phone Number [facility]
[address] [place] [address], [place] [phone] * Heparin Anti-Xa (04/05/2025 8:43 PM EDT) [facility] Heparin Anti-Xa (UFH) 0.38 0.30 - 0.70 IU/ml 04/05/2025 9:09 PM EDT [facility] Blood Venipuncture / Unknown 04/05/2025 8:43 PM EDT 04/05/2025 8:55 PM EDT us Cherri Beatty [facility] LAB BLOOD ORDERABLES Final Res ult Performing Organization Address City/[facility]/ZIP Co de Phone Number [facility]
[address] [place] [address], [place] [phone] * CK (04/05/2025 12:15 PM EDT) Pathologist [facility] Creatine Kinase 140 20 - 200 U/L 04/05/2025 1:31 PM EDT [facility] Blood Venipuncture / Unknown 04/05/2025 12:15 PM EDT 04/05/2025 1:03 PM EDT Carlton Mead MD LAB BLOOD ORDERABLES Final R esult Performing Organization Address City/[facility]/ZIP Co de Phone Number [facility]
[address] [place] [address], * (ABNORMAL) Heparin Anti-Xa (04/05/2025 12:15 PM EDT) Heparin Anti-Xa (UFH) 0.17(L) 0.30 - 0.70 IU/ml 04/05/2025 1:21 PM EDT [facility] Blood Venipuncture / Unknown 04/05/2025 12:15 PM EDT 04/05/2025 1:04 PM EDT Una Perla PharmD LAB BLOOD ORDERABLES Final R esult [facility]
[address] [place] [address], * (ABNORMAL) aPTT (04/05/2025 3:54 AM EDT) PTT 35.3(L) 60.0 - 90.0 seconds 04/05/2025 4:31 AM EDT [facility] Blood Venipuncture / Unknown 04/05/2025 3:54 AM EDT 04/05/2025 4:15 AM EDT Narrative [facility] - 04/05/2025 4:31 AM EDT PTT = The equivalent PTT values for the therapeutic range of heparin levels at 0.3 to 0.5 U/ml are 60 to 70 seconds. Una Perla PharmD LAB BLOOD ORDERABLES Final R esult [facility]
[address] [place] [address], * Heparin Anti-Xa (04/05/2025 3:54 AM EDT) Pathologist [facility] Heparin Anti-Xa (UFH) 0.30 0.30 - 0.70 IU/ml 04/05/2025 4:32 AM EDT [facility] Blood Venipuncture / Unknown 04/05/2025 3:54 AM EDT 04/05/2025 4:15 AM EDT Una Zero9D LAB BLOOD ORDERABLES Final R esult Performing Organization Address City/[facility]/ZIP Co de Phone Number [facility]
[address] [place] [address], * (ABNORMAL) CBC Auto Differential (04/05/2025 3:54 AM EDT) Pathologist [facility] WBC 11.18(H) 3.40 - 10.80 10*3/mm3 04/05/2025 4:20 AM EDT [facility] RBC 5.00 4.14 - 5.80 10*6/mm3 04/05/2025 4:20 AM EDT [facility] Hemoglobin 13.9 13.0 - 17.7 g/dL 04/05/2025 4:20 AM EDT [facility] Hematocrit 42.4 37.5 - 51.0 % 04/05/2025 4:20 AM EDT [facility] MCV 84.8 79.0 - 97.0 fL 04/05/2025 4:20 AM EDT [facility] MCH 27.8 26.6 - 33.0 pg 04/05/2025 4:20 AM EDT [facility] MCHC 32.8 31.5 - 35.7 g/dL 04/05/2025 4:20 AM [facility] RDW 12.9 12.3 - 15.4 % 04/05/2025 4:20 AM [facility] RDW-SD 39.7 37.0 - 54.0 fl 04/05/2025 4:20 AM [facility] MPV 10.2 6.0 - 12.0 fL 04/05/2025 4:20 AM [facility] Platelets 160 140 - 450 10*3/mm3 04/05/2025 4:20 AM [facility] Neutrophil % 73.5 42.7 - 76.0 % 04/05/2025 4:20 AM [facility] Lymphocyte % 14.0(L) 19.6 - 45.3 % 04/05/2025 4:20 AM [facility] Monocyte % 11.0 5.0 - 12.0 % 04/05/2025 4:20 AM [facility] Eosinophil % 0.8 0.3 - 6.2 % 04/05/2025 4:20 AM [facility] Basophil % 0.3 0.0 - 1.5 % 04/05/2025 4:20 AM [facility] Immature Grans % 0.4 0.0 - 0.5 % 04/05/2025 4:20 AM [facility] Neutrophils, Absolute 8.23(H) 1.70 - 7.00 10*3/mm3 04/05/2025 4:20 AM [facility] Lymphocytes, Absolute 1.56 0.70 - 3.10 10*3/mm3 04/05/2025 4:20 AM [facility] Monocytes, Absolute 1.23(H) 0.10 - 0.90 10*3/mm3 04/05/2025 4:20 AM [facility] Eosinophils, Absolute 0.09 0.00 - 0.40 10*3/mm3 04/05/2025 4:20 AM [facility] Basophils, Absolute 0.03 0.00 - 0.20 10*3/mm3 04/05/2025 4:20 AM EDT [facility] Immature Grans, Absolute 0.04 0.00 - 0.05 10*3/mm3 04/05/2025 4:20 AM EDT [facility] nRBC 0.0 0.0 - 0.2 /100 WBC 04/05/2025 4:20 AM EDT [facility] Blood Venipuncture / Unknown 04/05/2025 3:54 AM EDT 04/05/2025 4:16 AM EDT Una Perla PharmD LAB BLOOD ORDERABLES Final R esult [facility]
[address] [place] [address], * (ABNORMAL) Basic Metabolic Panel (04/05/2025 3:54 AM EDT) Glucose 152(H) 65 - 99 mg/dL 04/05/2025 4:40 AM EDT [facility] BUN 17.3 6.0 - 20.0 mg/dL 04/05/2025 4:40 AM EDT [facility] Creatinine 0.92 0.76 - 1.27 mg/dL 04/05/2025 4:40 AM EDT [facility] Sodium 136 136 - 145 mmol/L 04/05/2025 4:40 AM EDT [facility] Potassium 3.9 3.5 - 5.2 mmol/L 04/05/2025 4:40 AM EDT [facility] Chloride 103 98 - 107 mmol/L 04/05/2025 4:40 AM EDT [facility] CO2 24.0 22.0 - 29.0 mmol/L 04/05/2025 4:40 AM EDT [facility] Calcium 7.8(L) 8.6 - 10.5 mg/dL 04/05/2025 4:40 AM EDT [facility] BUN/Creatinine Ratio 18.8 7.0 - 25.0 04/05/2025 4:40 AM EDT [facility] Anion Gap 9.0 5.0 - 15.0 mmol/L 04/05/2025 4:40 AM EDT [facility] eGFR 105.2 >60.0 mL/min/1.7 3 04/05/2025 4:40 AM EDT [facility] Blood Venipuncture / [...] MD LAB BLOOD ORDERABLES Final Re sult [facility]
[address] [place] [address], * (ABNORMAL) aPTT (04/05/2025 12:18 AM EDT) PTT 33.6(L) 60.0 - 90.0 seconds 04/05/2025 12:53 AM EDT [facility] Blood Venipuncture / Unknown 04/05/2025 12:18 AM EDT 04/05/2025 12:37 AM EDT [facility] - 04/05/2025 12:53 AM EDT PTT = The equivalent PTT values for the therapeutic range of heparin levels at 0.3 to 0.5 U/ml are 60 to 70 seconds. Aries Cove PharmD LAB BLOOD ORDERABLES Final R esult Performing Organization Address City/[facility]/ZIP Co de Phone Number [facility]
[address] [place] [address], * (ABNORMAL) Protime-INR (04/05/2025 12:18 AM EDT) Protime 15.9(H) 12.2 - 15.3 Seconds 04/05/2025 12:53 AM EDT [facility] INR 1.19(H) 0.89 - 1.12 04/05/2025 12:53 AM EDT [facility] Blood Venipuncture / Unknown 04/05/2025 12:18 AM EDT 04/05/2025 12:37 AM EDT [place] PharmD LAB BLOOD ORDERABLES Final R esult Performing Organization Address [facility] Co de Phone Number [facility]
[address] [place] [address], * Heparin Anti-Xa (04/05/2025 12:18 AM EDT) Pathologist [facility] Heparin Anti-Xa (UFH) 0.39 0.30 - 0.70 IU/ml 04/05/2025 12:54 AM EDT [facility] Blood Venipuncture / Unknown 04/05/2025 12:18 AM EDT 04/05/2025 12:37 AM EDT [place] PharmD LAB BLOOD ORDERABLES Final R esult Performing Organization Address City/[facility]/ZIP Co de Phone Number [facility]
[address] [place] [address], * MRI Tibia Fibula Right With & [...] MD 04/04/2025 11:00 PM EDT Workstation ID: [id number] Narrative 04/04/2025 11:00 PM EDT MRI TIBIA [...] MD 04/04/2025 11:00 PM EDT Workstation ID: [id number] Leonora Shepherd MD IMG MRI ORDERABLES Final Resu lt * POC Creatinine (04/04/2025 2:49 PM EDT) Creatinine 1.10 0.60 - 1.30 mg/dL 04/07/2025 7:14 PM EDT [facility] Comment:Serial Number: [id number]: [id number] Venous Blood 04/04/2025 2:49 PM EDT 04/07/2025 7:14 PM EDT Jason Álvarez DO POINT OF CARE TEST ORDERABLES Fi nal Result [facility]
[address] [place] [address], * (ABNORMAL) CBC Auto Differential (04/04/2025 2:47 PM EDT) [facility] WBC 12.72(H) 3.40 - 10.80 10*3/mm3 04/04/2025 2:56 PM EDT [facility] RBC 5.64 4.14 - 5.80 10*6/mm3 04/04/2025 2:56 PM EDT [facility] Hemoglobin 15.3 13.0 - 17.7 g/dL 04/04/2025 2:56 PM EDT [facility] Hematocrit 47.9 37.5 - 51.0 % 04/04/2025 2:56 PM EDT [facility] MCV 84.9 79.0 - 97.0 fL 04/04/2025 2:56 PM EDT [facility] MCH 27.1 26.6 - 33.0 pg 04/04/2025 2:56 PM EDT [facility] MCHC 31.9 31.5 - 35.7 g/dL 04/04/2025 2:56 PM EDT [facility] RDW 13.1 12.3 - 15.4 % 04/04/2025 2:56 PM EDT [facility] RDW-SD 40.3 37.0 - 54.0 fl 04/04/2025 2:56 PM EDT [facility] MPV 9.4 6.0 - 12.0 fL 04/04/2025 2:56 PM EDT [facility] Platelets 232 140 - 450 10*3/mm3 04/04/2025 2:56 PM EDT [facility] Neutrophil % 74.9 42.7 - 76.0 % 04/04/2025 2:56 PM EDT [facility] Lymphocyte % 13.1(L) 19.6 - 45.3 % 04/04/2025 2:56 PM EDT [facility] Monocyte % 11.2 5.0 - 12.0 % 04/04/2025 2:56 PM EDT [facility] Eosinophil % 0.4 0.3 - 6.2 % 04/04/2025 2:56 PM EDT [facility] Basophil % 0.2 0.0 - 1.5 % 04/04/2025 2:56 PM EDT [facility] Immature Grans % 0.2 0.0 - 0.5 % 04/04/2025 2:56 PM EDT [facility] Neutrophils, Absolute 9.52(H) 1.70 - 7.00 10*3/mm3 04/04/2025 2:56 PM EDT [facility] Lymphocytes, Absolute 1.66 0.70 - 3.10 10*3/mm3 04/04/2025 2:56 PM EDT [facility] Monocytes, Absolute 1.43(H) 0.10 - 0.90 10*3/mm3 04/04/2025 2:56 PM EDT [facility] Eosinophils, Absolute 0.05 0.00 - 0.40 10*3/mm3 04/04/2025 2:56 PM EDT [facility] Basophils, Absolute 0.03 0.00 - 0.20 10*3/mm3 04/04/2025 2:56 PM EDT [facility] Immature Grans, Absolute 0.03 0.00 - 0.05 10*3/mm3 04/04/2025 2:56 PM EDT [facility] nRBC 0.0 0.0 - 0.2 /100 WBC 04/04/2025 2:56 PM EDT [facility] Blood Venipuncture / Unknown 04/04/2025 2:47 PM EDT 04/04/2025 2:52 PM EDT us Mario Crowley DO LAB BLOOD ORDERABLES Fin al Result [facility]
[address] [place] [address], * (ABNORMAL) C-reactive Protein (04/04/2025 2:47 PM EDT) C-Reactive Protein 8.57(H) 0.00 - 0.50 mg/dL 04/04/2025 3:26 PM EDT [facility] Blood Venipuncture / Unknown 04/04/2025 2:47 PM EDT 04/04/2025 2:52 PM EDT [facility] BLOOD ORDERABLES Fin al Result Performing Organization Address City/[facility]/ZIP Co de Phone Number [facility]
[address] [place] [address], * (ABNORMAL) Sedimentation Rate (04/04/2025 2:47 PM EDT) Pathologist [facility] Sed Rate 51(H) 0 - 15 mm/hr 04/04/2025 3:06 PM EDT [facility] Blood Venipuncture / Unknown 04/04/2025 2:47 PM EDT 04/04/2025 2:52 PM EDT [facility] LAB BLOOD ORDERABLES Fin al Result Performing Organization Address City/[facility] Co de Phone Number [facility]
[address] [place] [address], * Comprehensive Metabolic Panel (04/04/2025 2:47 PM EDT) Pathologist [facility] Glucose 90 65 - 99 mg/dL 04/04/2025 3:26 PM EDT [facility] BUN 18.3 6.0 - 20.0 mg/dL 04/04/2025 3:26 PM EDT [facility] Creatinine 0.94 0.76 - 1.27 mg/dL 04/04/2025 3:26 PM EDT [facility] Sodium 136 136 - 145 mmol/L 04/04/2025 3:26 PM EDT [facility] Potassium 3.8 3.5 - 5.2 mmol/L 04/04/2025 3:26 PM EDT [facility] Chloride 100 98 - 107 mmol/L 04/04/2025 3:26 PM EDT [facility] CO2 25.3 22.0 - 29.0 mmol/L 04/04/2025 3:26 PM EDT [facility] Calcium 8.6 8.6 - 10.5 mg/dL 04/04/2025 3:26 PM T [facility] Total Protein 7.3 6.0 - 8.5 g/dL 04/04/2025 3:26 PM EDT [facility] Albumin 4.1 3.5 - 5.2 g/dL 04/04/2025 3:26 PM T [facility] ALT (SGPT) 26 1 - 41 U/L 04/04/2025 3:26 PM [facility] AST (SGOT) 25 1 - 40 U/L 04/04/2025 3:26 PM T [facility] Alkaline Phosphatase 106 39 - 117 U/L 04/04/2025 3:26 PM T [facility] Total Bilirubin 1.0 0.0 - 1.2 mg/dL 04/04/2025 3:26 PM T [facility] Globulin 3.2 gm/dL 04/04/2025 3:26 PM [facility] Comment:Calculated Result A/G Ratio 1.3 g/dL 04/04/2025 3:26 PM [facility] BUN/Creatinine Ratio 19.5 7.0 - 25.0 04/04/2025 3:26 PM [facility] Anion Gap 10.7 5.0 - 15.0 mmol/L 04/04/2025 3:26 PM [facility] eGFR 102.5 >60.0 mL/min/1.7 3 04/04/2025 3:26 PM [facility] Blood Venipuncture / Unknown 04/04/2025 2:47 PM EDT 04/04/2025 2:[address] [facility] - 04/04/2025 3:26 PM EDT [...] DO LAB BLOOD ORDERABLES Fin al Result [facility]
[address] [place] [address], documented in this encounter Visit Diagnoses Diagnosis [...] BPA Driven Protocol Open Order & [facility] Electrolyte Replacement Protocol Algorithm to [...] BPA Driven Protocol Open Order & [facility] Electrolyte Replacement Protocol Algorithm to [...] Salazar, KELL)1943 (Given - Provider: Anahy Marcelino, PACKAGING DESIGNER)2129 (Canceled Entry - Provider: Anahy Marcelino PACKAGING DESIGNER - Comment: previously given) 0837 (Given - [...] Provider: Shirley Hart RN)2030 (Given - Provider: Alebrto Dillon RN) 100 (Given - Provider: Marguerite [...] chewed. Swallow whole. 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
--- OUTSIDE RECORDS SUMMARY | 2025-04-07 20:36 | XMS_ITS | Encounter Summary ---
Author Organization [facility] Address [address] [place] [address] Care Team Providers Care Forestry Scientist Name Role Phone Provider, No Known Primary Care Provider Unavail able Reason for Visit * Auth/Cert Specialty Diagnoses / Procedures Referred By Bulmaro muniz Referred To Contact Diagnoses Right BKA infection Referral ID Status Reason Start Date Expiration Date Visits Re quested Visits Authorized [id number] 1 1 Encounter Details Date Type Department Care Team (Late st Contact Info) Description 04/07/2025 8:36 PM EDT Anesthesia Event [facility] OR [address] [place] [address] Luci Alonso DO [address] [place] [address] Anesthesia Record Procedure Summary Procedure Name Responsible [...] = 0.6 oz pur e alcohol) [facility] Utilities Answer Date Recorded In the past 12 months has [employer], gas, oil, or water [employer] threatened to shut off services in your [...] or training? Not on file Preferred Language Hungarian 04/07/2025 Sex and Gender Information Value Date [...] PACU on O2NC, breathing comfortably. Report to TESTER/LIFT TRUCKER at bedside. VSS. * Anesthesia Procedure Notes [...] Musculoskeletal Abdominal Substance History - negative use CAPTAIN/AIRLINE PILOT Other ROS/Med Hx Other: Eliquis 04/04/25 Hgb 14.7 k 43.2 Factor 2 on eliquis +gerd Anesthesia Plan ASA 3 - emergent general Rapid sequence (Risks and benefits of general anesthesia discussed with patient (including [place], CVA, , recall,aspiration, oropharyngeal/dental damage), questions answered, agreeable to proceed. ) intravenous induction Anesthetic plan, risks, benefits, and alternatives have been provided, discussed and informed consent has been obtained with: patient. Plan discussed with FOIL STAMP OPERATOR. CODE STATUS: Code Status (Patient has no [...] documented as of this encounter Care Teams Forestry Scientist Relationship Specialty Start Date End Date Provider, No Known [facility] [place] [address] PCP - General 05/09/23 documented as of this encounter
--- OUTSIDE RECORDS SUMMARY | 2025-04-08 14:45 | XMS_ITS | Encounter Summary ---
[facility] Address [address] [place] [address] Care Team Providers Care Shallot Cleaner Name Role Phone Provider, No Known Primary Care Provider Unavail able Reason for Visit * Reason Comments Leg Swelling * Auth/Cert Specialty Diagnoses / Procedures Referred By Contac t Referred To Contact Diagnoses Right BKA infection Referral ID Status Reason Start Date Expiration Date Visits Re quested Visits Authorized [id number] 1 1 Encounter Details Date Type Department Care Team (Late st Contact Info) Description 04/08/2025 2:45 PM EDT - 04/08/2025 4:04 PM EDT Surgery [facility] OR [address] [place] [address] Sushil Dean Jr., MD [address] [place] [address] [address] [id number] LEG DEBRIDEMENT AND IRRIGATION Social History Tobacco Use Types Packs/Day Years Used Date Smoking Tobacco: Never Smokeless Tobacco: Never Tobacco Cessation:Counseling Given: Not Answered Alcohol Use Standard Drinks/Week Comments Not Currently 0 (1 standard drink = 0.6 oz pur e alcohol) [facility] Utilities Answer Date Recorded In the past 12 months has [employer] electric, gas, oil, or water company threatened [...] or training? Not on file Preferred Language Micronesian 04/07/2025 Sex and Gender Information Value Date [...] 2:25 PM EDT Cherri Grimm RN * [place] Suicide Severity Rating Scale (Screener/Recent Self-Report) Question [...] from the original note were not included. [facility] Medicine Services DISCHARGE SUMMARY Patient [...] Date/Time Wound Culture - Swab, Leg, Right [[id number]] (Abnormal) (Susceptibility) Collected: 04/07/252106 Lab Status: Final [...] Units Date/Time FL C Arm During Surgery [[id number]] Resulted: 04/07/252137 Updated: 04/07/252137 Narrative: This procedure was auto-finalized with no dictation required. MRI Tibia Fibula Right With & Without Contrast [[id number]] Collected: 04/07/25 0938 Updated: 04/07/25 1001 Narrative: [...] Buenrostro 04/07/2025 9:58 AM EDT Workstation ID: [id number] MRI Tibia Fibula Right With & Without Contrast [[id number]] Collected: 04/04/252256 Updated: 04/04/252302 Narrative: MRI TIBIA [...] represent a small area of phlegmonous change (yjzqel84 image 10) measuring approximately 1.6 cm which [...] MD 04/04/2025 11:00 PM EDT Workstation ID: [id number] Pending Labs Order Current Status Fungus Culture [...] Male) Date of 1980 Social Security Number [id number] [place] [address] [place] [address] Confucianist Unknown Marital Status Unknown Admission Date 04/04/2025 Admission Type Emergency Admitting Provider Jadyn Richardson DO Attending Provider Jadyn Richardson DO Department, Room/Bed [facility] 5G, S565/1 Discharge Date Discharge Disposition Discharge Destination Attending Provider: Jadyn Richardson DO Allergies: Ceftin [Cefuroxime], Keflex [Cephalexin], Latex Isolation: None Infection: MRSA (05/11/23) Code Status: CPR Ht: 180.3 cm (71 ) Wt: 134 kg (295 lb) Admission Cmt: None 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 Insurance as of 04/04/2025 Primary Coverage Payor Plan Insurance Group Employer/Plan Group [place] [id number] Payor Plan Address Payor Plan Phone Number Payor Plan Fax Number Effective Dates [employer] [address] [address] 08/10/2023 - None Entered [facility] [address] Subscriber Name Subscriber Date Member ID WON DENNIS 1980 [id number] Emergency Contacts Aerial Advertiser (Rel.) Home Phone Work Phone Mobile Phone Avril Dennis (Spouse) -- -- [phone] Robert Hackett (Relative) -- -- [phone] [facility] 5G [address] [facility] [address] Patient: ROOM: [facility] Won Dennis [address] [facility] [place] [address] : 1980 SSN: [id number] Sex: M PCP: Provider, No Known Emergency Contact Information Name Relation Home Work Mobile Avril Dennis Spouse [phone] Other Contacts Name Relation Home Work Mobile Robert Hackett Relative [phone] INSURANCE PAYOR [employer]AN [employer] # SUBSCRIBER ID Primary: Secondary: MEDICARE [place] [id number] Admitting Diagnosis: 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 He is known to Dr. Dean. He [...] HDS, on Heparin gtt. Currently [facility] has been asked to manage the [...] Jr., MD, 20 mg at 04/09/25906 heparin 98954 units/250 mL (100 units/mL) in 0.45 % [...] vancomycin 2750 mg/500 mL 0.9% NS IVPB ([facility]) Ordering Provider: Mario Crowley, [...] Units Date/Time FL C Arm During Surgery [[id number]] Resulted: 04/07/252137 Updated: 04/07/252137 Narrative: This procedure was auto-finalized with no dictation required. MRI Tibia Fibula Right With & Without Contrast [[id number]] Collected: 04/07/2538 Updated: 04/07/25 1001 Narrative: MRI [...] Buenrostro 04/07/2025 9:58 AM EDT Workstation ID: [id number] Impression: Recurrent Right BKA stump abscess/cellulitis- this [...] and CPK weekly-forward results to Dr. Rubens oTrres 4. Follow-up with Dr. Rubens Torres in [...] Date/Time Wound Culture - Swab, Leg, Right [[id number]] (Abnormal) (Susceptibility) Collected: 04/07/252106 Lab Status: Final [...] Row Name 04/06/25 1143 Sit-Stand Transfer Sit-Stand Esmeralda (Transfers) modified independence - Comment, (Sit-Stand Transfer) Pt stood from recliner. Not holding onto walker, pt able to pull his pants up while balancing on his one leg. -LM Row Name 04/06/25 1143 Gait/Stairs (Locomotion) Esmeralda Level (Gait) modified independence - Distance in [...] Motion bilateral lower extremity ROM WFL -LM [facility] Name 04/06/25 1145 Strength Comprehensive (MMT) General Manual Muscle Testing (MMT) Assessment no strength deficits identified BLEs -LM [facility] Name 04/06/25 1145 Balance Balance [...] home at d/c. PT signing off. -LM [facility] Name 04/06/25 1146 Therapy Assessment/Plan (PT) Criteria for Skilled Interventions Met (PT) no;no problems identified which require skilled intervention -LM Therapy Frequency (PT) evaluation only -LM Predicted Duration of Therapy Intervention (PT) Eval Only -LM [facility] Name 04/06/25 1146 Vital Signs Pretreatment Heart Rate (beats/min) 86 -LM Posttreatment Heart Rate (beats/min) 96 -LM Pre SpO2 (%) 95 -LM O2 Delivery Pre Treatment room air -LM Post SpO2 (%) 96 -LM O2 Delivery Post Treatment room air -LM Pre Patient Position Sitting -LM Post Patient Position Sitting -LM [facility] Name 04/06/25 1146 Positioning and [...] Nurse Physical Therapy Education Title: PT OT REHABILITATION COUNSELLOR Therapies (Done) Topic: Physical Therapy (Done) Point: [...] Description Service Date Service Provider Modifiers Qty [phone] PT EVAL LOW COMPLEXITY 3 04/06/2025 Susan [...] mg Daily 04/05/2025 -- Route: Oral heparin 23975 units/250 mL (100 units/mL) in 0.45 % [...] [facility] [address], [address] [facility], [address] Please schedule at [phone] VONDA Garcia 04/11/25 08:32 EDT Cosigned by Sushil Dean Jr., MD at 04/19/2025 10:33 AM EDT Associated attestation - Sushil Dean Jr., MD - 04/19/2025 10:33 AM EDT I have reviewed this documentation and agree. * Rosario Hill APRN - 04/10/2025 1:24 PM EDT Images from the original note were not included. [facility] Medicine Services PROGRESS NOTE Patient [...] Date/Time Wound Culture - Swab, Leg, Right [[id number]] (Abnormal) (Susceptibility) Collected: 04/07/252106 Lab Status: Final [...] mg Daily 04/05/2025 -- Route: Oral heparin 82580 units/250 mL (100 units/mL) in 0.45 % [...] [facility] [address] [facility], [address] [facility], [address] Please schedule at [phone] VONDA Garcia 04/10/25 09:01 EDT Cosigned by Sushil Dean Jr., MD at 04/19/2025 10:33 AM EDT Associated attestation - Sushil Dean Jr., MD - 04/19/2025 10:33 AM EDT I have reviewed this documentation and agree. * Carlton Mead MD - 04/10/2025 7:38 AM EDT Images from the original note were not included. INFECTIOUS DISEASE Progress Note Won Dennis 1980 [id number] Date of Consult: 04/10/2025 Admission Date: 04/04/2025 [...] prompted him to seek treatment at [facility]. He is known to Dr. Dean. He [...] HDS, on Heparin gtt. Currently [facility] has been asked to manage the [...] IRRIGATION; Surgeon: Sushil Dean Jr., MD; Location: [facility]; Service: Orthopedics; Laterality: Right; PLACEMENT OF WOUND VAC Right 04/07/2025 Procedure: WOUND VACUUM ASSISTED CLOSURE; Surgeon: Sushil Dean Jr., MD; Location: [facility] OR; Service: Orthopedics; Laterality: Right; WOUND CLOSURE [...] Jr., MD, 20 mg at 04/09/25906 heparin 69722 units/250 mL (100 units/mL) in 0.45 % [...] Units Date/Time FL C Arm During Surgery [[id number]] Resulted: 04/07/252137 Updated: 04/07/252137 Narrative: This procedure was auto-finalized with no dictation required. MRI Tibia Fibula Right With & Without Contrast [[id number]] Collected: 04/07/25937 Updated: 04/07/25 100 Narrative: MRI [...] Buenrostro 04/07/2025 9:58 AM EDT Workstation ID: [id number] Impression: Recurrent Right BKA stump abscess/cellulitis- this [...] MD 04/10/2025 07:38 EDT * Larisa Hamilton [facility] - 04/10/2025 7:17 AM EDT Pharmacy [...] from the original note were not included. [facility] Medicine Services PROGRESS NOTE Patient [...] Date/Time Wound Culture - Swab, Leg, Right [[id number]] (Abnormal) Collected: 04/07/252106 Lab Status: Preliminary result [...] Jason Álvarez DO 04/09/25 * Larisa Hamilton [facility] - 04/09/2025 11:36 AM EDT Pharmacy [...] -- Admin Instructions: Open Order & Select [facility] Electrolyte Replacement Protocol Algorithm [...] mg Daily 04/05/2025 -- Route: Oral heparin 70334 units/250 mL (100 units/mL) in 0.45 % [...] -- Admin Instructions: Open Order & Select [facility] Electrolyte Replacement Protocol Algorithm [...] [facility] [address] [facility], [address] [facility], [address] Please schedule at [phone] VONDA Garcia 04/09/25 09:18 EDT Cosigned by Sushil Dean Jr., MD at 04/19/2025 10:33 AM EDT Associated attestation - Sushil Dean Jr., MD - 04/19/2025 10:33 AM EDT I have reviewed this documentation and agree. * Carlton Mead MD - 04/09/2025 8:25 AM EDT Images from the original note were not included. INFECTIOUS DISEASE Progress Note Won Dennis 1980 [id number] Date of Consult: 04/09/2025 Admission Date: 04/04/2025 [...] prompted him to seek treatment at [facility]. He is known to Dr. Dean. He [...] HDS, on Heparin gtt. Currently [facility] has been asked to manage the [...] Surgeon: Sushil Dean Jr., MD; Location: [facility]; Service: Orthopedics; Laterality: Right; PLACEMENT OF WOUND VAC Right 04/07/2025 Procedure: WOUND VACUUM ASSISTED CLOSURE; Surgeon: Sushil Dean Jr., MD; Location: [facility] OR; Service: Orthopedics; Laterality: Right; [...] MD, 20 mg at 04/08/25 0800 heparin 41112 units/250 mL (100 units/mL) in 0.45 % [...] Units Date/Time FL C Arm During Surgery [[id number]] Resulted: 04/07/252137 Updated: 04/07/252137 Narrative: This procedure was auto-finalized with no dictation required. MRI Tibia Fibula Right With & Without Contrast [[id number]] Collected: 04/07/25 0938 Updated: 04/07/25 1001 Narrative: [...] Chitra 04/07/2025 9:58 AM EDT Workstation ID: [id number] Impression: Recurrent Right BKA stump abscess/cellulitis- this [...] from the original note were not included. [facility] Medicine Services PROGRESS NOTE Patient [...] Buenrostro 04/07/2025 9:58 AM EDT Workstation ID: [id number] I have personally reviewed the therapy plans: [...] Jason Álvarez, DO 04/08/25 * Hamilton, Larisa, [facility] - 04/08/2025 11:48 AM EDT Pharmacy [...] -- Admin Instructions: Open Order & Select [facility] Electrolyte Replacement Protocol Algorithm [...] mg Daily 04/05/2025 -- Route: Oral heparin 34064 units/250 mL (100 units/mL) in 0.45 % [...] INFECTIOUS DISEASE Progress Note Won Dennis 1980 [id number] Date of Consult: 04/08/2025 Admission Date: 04/04/2025 [...] prompted him to seek treatment at [facility]. He is known to Dr. Dean. He [...] HDS, on Heparin gtt. Currently [facility] has been asked to manage the [...] IRRIGATION; Surgeon: Sushil Dean Jr., MD; Location: [facility] OR; Service: Orthopedics; Laterality: Right; PLACEMENT OF WOUND VAC Right 04/07/2025 Procedure: WOUND VACUUM ASSISTED CLOSURE; Surgeon: Sushil Dean Jr., MD; Location: [facility] OR; Service: Orthopedics; Laterality: Right; [...] Oral, Q6H PRN, 500 mg at 04/06/25 9404 OR acetaminophen (TYLENOL) 160 MG/5ML oral solution [...] Jr., MD, 20 mg at 04/07/25950 heparin 81806 units/250 mL (100 units/mL) in 0.45 % [...] vancomycin 2750 mg/500 mL 0.9% NS IVPB ([facility]) Ordering Provider: Mario Crowley, [...] Units Date/Time FL C Arm During Surgery [[id number]] Resulted: 04/07/252137 Updated: 04/07/252137 Narrative: This procedure was auto-finalized with no dictation required. MRI Tibia Fibula Right With & Without Contrast [[id number]] Collected: 04/07/25 0938 Updated: 04/07/25 1001 Narrative: [...] Buenrostro 04/07/2025 9:58 AM EDT Workstation ID: [id number] Impression: Right BKA stump cellulitis- s/p BKA with multiple surgical interventions with Known MRSA 05/09/2025. (Treated by ID in [place] Dr. Harris). Dr. Torres treated him with [...] from the original note were not included. [facility] Medicine Services PROGRESS NOTE Patient [...] Buenrostro 04/07/2025 9:58 AM EDT Workstation ID: [id number] I have personally reviewed the therapy plans: [...] Jason DO Preeti 04/07/25 * Larisa Hamilton, [facility] - 04/07/2025 11:56 AM EDT Pharmacy [...] INFECTIOUS DISEASE Progress Note Won Dennis 1980 [id number] Date of Consult: 04/07/2025 Admission Date: 04/04/2025 [...] prompted him to seek treatment at [facility]. He is known to Dr. Dean. He [...] HDS, on Heparin gtt. Currently [facility] has been asked to manage the [...] MD, 20 mg at 04/06/25 0900 heparin 43433 units/250 mL (100 units/mL) in 0.45 % NaCl infusion, 18 Units/kg/hr, Intravenous, Titrated, Cherri Beatty, [facility], Last Rate: 24.1 mL/hr at 04/07/258, [...] With & Without Contrast - In process [[id number]] Resulted: 04/07/25828 Updated: 04/07/25828 This result has not been signed. Information might be incomplete. MRI Tibia Fibula Right With & Without Contrast [[id number]] Collected: 04/04/252256 Updated: 04/04/253 Narrative: MRI TIBIA [...] MD 04/04/2025 11:00 PM EDT Workstation ID: [id number] Impression: Right BKA stump cellulitis- s/p BKA with multiple surgical interventions with Known MRSA 05/09/2025. (Treated by ID in [place] Dr. Harris). Dr. Torres treated him with [...] -- Admin Instructions: Open Order & Select [facility] Electrolyte Replacement Protocol Algorithm [...] mg Daily 04/05/2025 -- Route: Oral heparin 17972 units/250 mL (100 units/mL) in 0.45 % [...] -- Admin Instructions: Open Order & Select [facility] Electrolyte Replacement Protocol Algorithm [...] MD 04/07/25 06:07 EDT * Cherri Beatty [facility] - 04/06/2025 1:47 PM EDT Pharmacy [...] Beatty RPH 04/06/2025 13:48 EDT * Jason Álvarze DO - 04/06/2025 12:47 PM EDT Images from the original note were not included. [facility] Medicine Services PROGRESS NOTE Patient [...] MD 04/04/2025 11:00 PM EDT Workstation ID: [id number] I have personally reviewed the therapy plans: [...] mg Daily 04/05/2025 -- Route: Oral heparin 03280 units/250 mL (100 units/mL) in 0.45 % [...] -- Admin Instructions: Open Order & Select [facility] Electrolyte Replacement Protocol Algorithm [...] -- Admin Instructions: Open Order & Select [facility] Electrolyte Replacement Protocol Algorithm [...] INFECTIOUS DISEASE follow up. Won Dennis 1980 [id number] Date of Consult: 04/06/2025 Admission Date: 04/04/2025 [...] prompted him to seek treatment at [facility]. He is known to Dr. Dean. He [...] HDS, on Heparin gtt. Currently [facility] has been asked to manage the [...] MD, 20 mg at 04/06/25 0900 heparin 77265 units/250 mL (100 units/mL) in 0.45 % NaCl infusion, 18 Units/kg/hr, Intravenous, Titrated, Cherri Beatty [facility], Last Rate: 24.1 mL/hr at 04/06/25 [...] Tibia Fibula Right With & Without Contrast [[id number]] Collected: 04/04/252256 Updated: 04/04/252302 Narrative: MRI TIBIA [...] represent a small area of phlegmonous change ([id number] image 10) measuring approximately 1.6 cm which [...] MD 04/04/2025 11:00 PM EDT Workstation ID: [id number] Impression: Right BKA stump cellulitis- s/p BKA with multiple surgical interventions with Known MRSA 05/09/2025. (Treated by ID in [place] Dr. Harris). Dr. Torres treated him with [...] from the original note were not included. [facility] Medicine Services PROGRESS NOTE Patient [...] MD 04/04/2025 11:00 PM EDT Workstation ID: [id number] I have personally reviewed the therapy plans: [...] from the original note were not included. [facility] Medicine Services HISTORY AND PHYSICAL [...] MD 04/04/2025 11:00 PM EDT Workstation ID: [id number] Assessment & Plan Assessment & Plan Won [...] SURGERY [facility], [facility] [address] [address] Orthopedic Consult Patient: Won Dennis Date of [...] was evaluated in the emergency department in [place], was discharged with instructions for follow-up. He [...] tablet by mouth Daily. 04/03/2025 Morning Lactobacillus-Inulin ([facility]) capsule Take 200 mg by mouth Daily. [...] MD 04/04/2025 11:00 PM EDT Workstation ID: [id number] Assessment: Right BKA infection 44-year-old male with [...] DISEASE CONSULT/INITIAL HOSPITAL VISIT Won Dennis 1980 [id number] Date of Consult: 04/05/2025 Admission Date: 04/04/2025 [...] prompted him to seek treatment at [facility]. He is known to Dr. Dean. He [...] HDS, on Heparin gtt. Currently [facility] has been asked to manage the [...] Leonora Shepherd MD, 40 mg at 04/04/25 8732 sennosides-docusate (PERICOLACE) 8.6-50 MG per tablet 2 [...] MD, 20 mg at 04/05/25 09 heparin 88379 units/250 mL (100 units/mL) in 0.45 % [...] Leonora Shepherd MD, 10 mg at 04/04/25 5992 Pharmacy to Dose Heparin, , Not Applicable, [...] Tibia Fibula Right With & Without Contrast [[id number]] Collected: 04/04/252256 Updated: 04/04/252302 Narrative: MRI TIBIA [...] represent a small area of phlegmonous change (fjsiqs89 image 10) measuring approximately 1.6 cm which [...] MD 04/04/2025 11:00 PM EDT Workstation ID: [id number] Impression: Right BKA stump cellulitis- s/p BKA with multiple surgical interventions with Known MRSA 05/09/2025. (Treated by ID in [place] Dr. Harris). Dr. Torres treated him with [...] 04/08/2025 3:51 PM EDT [facility] OPERATIVE REPORT PATIENT NAME: Won Dennis DATE OF : 1980 PREOP DIAGNOSIS: Right Right below-knee amputation infection POSTOP DIAGNOSIS: Same. PROCEDURE: Right Right 30599: Secondary closure below-knee amputation SURGEON: Sushil Dean MD OPERATIVE TEAM: Sawmilling Operator: Susi Grullon RN Scrub Person: Mary Paredes Scrub Person Extra: Hortencia Toribio Other: Katt Gotti RN; Charis Neville RN ANESTHETIST: Anesthesiologist: Ulises Hoffman MD FIRE FIGHTING EQUIPMENT SPECIALIST: Stan Casillas CRNA Student Nurse Cadd Drafter: Karol Albert SRNA ANESTHESIA: Choice ESTIMATED BLOOD [...] CULTURE (Canceled) Sushil Dean Jr., MD 04/08/25 9967 Description: RIGHT LEG DEEP WOUND FOR CULTURE [...] EDT [facility], [place] [address] OPERATIVE REPORT PATIENT NAME: Won Dennis DATE OF : 1980 PREOP DIAGNOSIS: Right Right below knee amputation stump infection POSTOP DIAGNOSIS: Same. PROCEDURE: Right Right 09063: Incision and drainage of surgical site infection 23159: Debridement of skin, subcutaneous tissue, muscle 33715: Wound vacuum-assisted closure SURGEON: Sushil Dean MD OPERATIVE TEAM: Sawmilling Operator: Anum Sanchez RN Scrub Person: Hortencia Toribio; Gerald Ivey ENERGY CROP FARMER: Anesthesiologist: Luci Alonso DO ANESTHESIA: General ESTIMATED [...] swellling of the area. seen at [facility] yesterday for CT and US, here for [...] this chart in the absence of a applications manager. No orders to display RADIOLOGY: [x] [...] changes. DEBRA has spoke with Dena at [facility] today multiple times to get [...] with KELLEE and given themhis Medicare number [id number], she sent it to Admission. DEBRA spoke [...] orders over to [facility] at [phone]. CM will follow up with them tomorrow [...] EDT Continued Stay Note [facility] Patient Name: Won Dennis Today's Date: 04/09/2025 Admit Date: 04/04/2025 Plan: Home Discharge Plan Row Name 04/09/25 1311 Plan Plan Home Patient/Family in Agreement with Plan yes Plan Comments CM spoke with patient at bedside today. Wheelchair from [employer] is at bedside. Patient getting PICC line [...] included. Discharge Planning Assessment [facility] Patient Name: Won Dennis Today's Date: [...] with family Patient/Family Anticipated Services at Transition disease case managerwriting manager Anticipated family or friend will provide Discharge Needs Assessment Equipment Currently Used at Home glucometer;shower chair;pulse ox;bp cuff;prosthesis;crutches Equipment Needed After Discharge none Discharge Plan Row Name 04/07/25 1144 Plan Plan Home Patient/Family in Agreement with Plan yes Plan Comments CM spoke with patient at bedside today. Patient lives with and his 5 kids in [facility]. 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 He has walker, cane, shower chair, and crutches. He requested a wheelchair for home. CM will order wheelchair [facility]. He is not current with home health services. PCP is Dr. Jordan. Insurance is [employer] [place]. Patient discharge plan is home with priavte transport. CM will follow for any discharge needs. Final Discharge Disposition Code 01 - home or self-care Continued Care and Services - Admitted Since 04/04/2025 No active coordination exists. Demographic Summary Row Name 04/07/25 1143 General Information Arrived From hospital Preferred Language Micronesian Functional Status Row Name 04/07/25 1143 Functional [...] 3:4 0 PM EDT Right BKA infection OK SEC ABDOMINAL WALL SUTURE EVISCERATION/DEHSN 04/08/2025 3:20 [...] CBC Auto Differential (04/11/2025 3:40 AM EDT) [facility] WBC 7.87 3.40 - 10.80 10*3/mm3 04/11/2025 4:02 AM EDT [facility] RBC 4.70 4.14 - 5.80 10*6/mm3 04/11/2025 4:02 AM [facility] Hemoglobin 12.8(L) 13.0 - 17.7 g/dL 04/11/2025 4:02 AM [facility] Hematocrit 40.5 37.5 - 51.0 % 04/11/2025 4:02 AM [facility] MCV 86.2 79.0 - 97.0 fL 04/11/2025 4:02 AM [facility] MCH 27.2 26.6 - 33.0 pg 04/11/2025 4:02 AM [facility] MCHC 31.6 31.5 - 35.7 g/dL 04/11/2025 4:02 AM [facility] RDW 12.9 12.3 - 15.4 % 04/11/2025 4:02 AM [facility] RDW-SD 40.5 37.0 - 54.0 fl 04/11/2025 4:02 AM [facility] MPV 9.2 6.0 - 12.0 fL 04/11/2025 4:02 AM [facility] Platelets 267 140 - 450 10*3/mm3 04/11/2025 4:02 AM [facility] Neutrophil % 59.5 42.7 - 76.0 % 04/11/2025 4:02 AM [facility] Lymphocyte % 26.3 19.6 - 45.3 % 04/11/2025 4:02 AM [facility] Monocyte % 9.3 5.0 - 12.0 % 04/11/2025 4:02 AM [facility] Eosinophil % 4.1 0.3 - 6.2 % 04/11/2025 4:02 AM [facility] Basophil % 0.4 0.0 - 1.5 % 04/[facility] Immature Grans % 0.4 0.0 - 0.5 % 04/11/2025 4:02 AM EDT [facility] [...] Result [facility]
[address] [place] [address], * (ABNORMAL) Comprehensive Metabolic Panel (04/11/2025 3:40 AM EDT) Glucose 108(H) 65 - 99 mg/dL 04/11/2025 4:19 AM EDT [facility] BUN 12.5 6.0 - 20.0 mg/dL 04/11/2025 4:19 AM EDT [facility] Creatinine 0.68(L) 0.76 - 1.27 mg/dL 04/11/2025 4:19 AM [facility] Sodium 140 136 - 145 mmol/L 04/11/2025 4:19 AM [facility] Potassium 3.8 3.5 - 5.2 mmol/L 04/11/2025 4:19 AM [facility] Chloride 105 98 - 107 mmol/L 04/11/2025 4:19 AM [facility] CO2 28.2 22.0 - 29.0 mmol/L 04/11/2025 4:19 AM [facility] Calcium 8.2(L) 8.6 - 10.5 mg/dL 04/11/2025 4:19 AM [facility] Total Protein 6.1 6.0 - 8.5 g/dL 04/11/2025 4:19 AM [facility] Albumin 3.1(L) 3.5 - 5.2 g/dL 04/11/2025 4:19 AM [facility] ALT (SGPT) 52(H) 1 - 41 U/L 04/11/2025 4:19 AM [facility] AST (SGOT) 40 1 - 40 U/L 04/11/2025 4:19 AM [facility] Alkaline Phosphatase 99 39 - 117 U/L 04/11/2025 4:19 AM [facility] Total Bilirubin 0.2 0.0 - 1.2 mg/dL 04/11/2025 4:19 AM [facility] Globulin 3.0 gm/dL 04/11/2025 4:19 AM [facility] Comment:Calculated Result A/G Ratio 1.0 g/dL 04/11/2025 4:19 AM [facility] BUN/Creatinine Ratio 18.4 7.0 - 25.0 04/11/2025 4:19 AM [facility] Anion Gap 6.8 5.0 - 15.0 mmol/L 04/11/2025 4:19 AM [facility] eGFR 117.5 >60.0 mL/min/1.7 3 04/11/2025 4:19 AM EDT [facility] Blood Venipuncture / Unknown 04/11/2025 3:40 AM EDT 04/11/2025 3:56 AM EDT [facility] - 04/11/2025 4:19 AM [...] Hill APRN LAB BLOOD ORDERABLES Final Result [facility]
[address] [place] [address], * (ABNORMAL) CBC Auto Differential (04/10/2025 3:46 [...] 26.6 - 33.0 pg 04/10/2025 3:56 [facility] MCHC 32.2 31.5 - 35.7 g/dL 04/10/2025 3:56 AM EDT [facility] RDW 12.9 12.3 - 15.4 % 04/10/2025 3:56 [facility] RDW-SD 40.5 37.0 - 54.0 fl 04/10/2025 3:56 AM EDT [facility] MPV 9.5 6.0 - 12.0 fL 04/10/2025 3:56 AM EDT [facility] Platelets 227 140 - 450 10*3/mm3 04/10/2025 3:56 AM [facility] Neutrophil % 59.1 42.7 - 76.0 % 04/10/2025 3:56 AM [facility] Lymphocyte % 29.0 19.6 - 45.3 % 04/10/2025 3:56 AM [facility] Monocyte % 8.1 5.0 - 12.0 % 04/10/2025 3:56 AM [facility] Eosinophil % 3.2 0.3 - 6.2 % 04/10/2025 3:56 AM [facility] Basophil % 0.4 0.0 - 1.5 % 04/10/2025 3:56 AM [facility] Immature Grans % 0.2 0.0 - 0.5 % 04/10/2025 3:56 AM [facility] Neutrophils, Absolute 5.67 1.70 - 7.00 10*3/mm3 04/10/2025 3:56 AM [facility] Lymphocytes, Absolute 2.78 0.70 - 3.10 10*3/mm3 04/10/2025 3:56 AM [facility] Monocytes, Absolute 0.78 0.10 - 0.90 10*3/mm3 04/10/2025 3:56 AM [facility] Eosinophils, Absolute 0.31 0.00 - 0.40 10*3/mm3 04/10/2025 3:56 AM EDT [facility] Basophils, Absolute 0.04 0.00 - 0.20 10*3/mm3 04/10/2025 3:56 AM EDT [facility] Immature Grans, Absolute 0.02 0.00 [...] t [facility]
[address] [place] [address], * (ABNORMAL) Basic Metabolic Panel (04/10/2025 3:46 [...] t [facility]
[address] [place] [address], * Heparin Anti-Xa (04/10/2025 3:46 AM EDT) Heparin Anti-Xa ([facility]) 0.35 0.30 - 0.70 IU/ml 04/10/2025 4:23 AM EDT [facility] Blood Venipuncture / Unknown 04/10/2025 3:46 AM EDT 04/10/2025 3:53 AM EDT Larisa Hamilton [facility] LAB BLOOD ORDERABLES Final R esult [facility]
[address] [place] [address], * Heparin Anti-Xa (04/09/2025 10:05 AM EDT) Pathologist [facility] Heparin Anti-Xa ([facility]) 0.36 0.30 - 0.70 IU/ml 04/09/2025 11:12 AM EDT [facility] Blood Venipuncture / Unknown 04/09/2025 10:05 AM EDT 04/09/2025 10:47 AM EDT Larisa Hamilton [facility] LAB BLOOD ORDERABLES Final R esult [facility]
[address] [place] [address], * (ABNORMAL) CBC Auto Differential (04/09/2025 4:18 [...] 12.3 - 15.4 % 04/09/2025 4:50 AM [facility] RDW-SD 39.9 37.0 - 54.0 fl 04/09/2025 4:50 AM [facility] MPV 10.0 6.0 - 12.0 fL 04/09/2025 4:50 AM [facility] Platelets 211 140 - 450 10*3/mm3 04/09/2025 4:50 AM [facility] Neutrophil % 74.8 42.7 - 76.0 % 04/09/2025 4:50 AM [facility] Lymphocyte % 15.4(L) 19.6 - 45.3 % 04/09/2025 4:50 AM [facility] Monocyte % 8.5 5.0 - 12.0 % 04/09/2025 4:50 AM [facility] Eosinophil % 0.6 0.3 - 6.2 % 04/09/2025 4:50 AM [facility] Basophil % 0.4 0.0 - 1.5 % 04/09/2025 4:50 AM [facility] Immature Grans % 0.3 0.0 - 0.5 % 04/09/2025 4:50 AM [facility] Neutrophils, Absolute 8.23(H) 1.70 - 7.00 10*3/mm3 04/09/2025 4:50 AM [facility] Lymphocytes, Absolute 1.69 0.70 - 3.10 10*3/mm3 04/09/2025 4:50 AM [facility] Monocytes, Absolute 0.94(H) 0.10 - 0.90 10*3/mm3 04/09/2025 4:50 AM [facility] Eosinophils, Absolute 0.07 0.00 - 0.40 10*3/mm3 04/09/2025 4:50 AM [facility] Basophils, Absolute 0.04 0.00 - 0.20 10*3/mm3 04/09/2025 4:50 AM EDT [facility] [...] Result Performing Organization Address City/[facility]/ZIP Co de Phone Number [facility]
[address] [place] [address], * Heparin Anti-Xa (04/09/2025 4:18 AM EDT) Heparin Anti-Xa ([facility]) 0.41 0.30 - 0.70 IU/ml 04/09/2025 4:53 AM EDT [facility] Blood Venipuncture / Unknown 04/09/2025 4:18 AM EDT 04/09/2025 4:31 AM EDT Una LundbergD LAB BLOOD ORDERABLES Final R esult [facility]
[address] [place] [address], * (ABNORMAL) Basic Metabolic Panel (04/09/2025 4:18 [...] 4:18 AM EDT 04/09/2025 4:29 AM EDT [facility] - 04/09/2025 5:33 AM [...] [facility]
[address] [place] [address], * Wound Culture - Swab, Leg, Right [...] Result Performing Organization Address City/[facility]/ZIP Co de Phone Number [facility]
[address] [place] [address], [facility]
[address] [place] [address], * Anaerobic Culture - Swab, Leg, Right (04/08/2025 3:40 PM EDT) Anaerobic Culture No anaerobes isolated at 5 days ALIZA 04/13/2025 7:24 AM EDT [facility] Swab Structure of right lower limb / Unknown 04/08/2025 3:40 PM EDT 04/08/2025 8:05 PM EDT us Sushil Dean Jr., MD MICROBIOLOGY - GENERAL ORDERABLES Final Result Performing Organization Address City/[facility]/ZIP Co de Phone Number [facility]
[address] [place] [address], * Scan Slide (04/08/2025 8:41 AM EDT) [...] esult [facility]
[address] [place] [address], * (ABNORMAL) CBC Auto Differential (04/08/2025 8:41 [...] 37.0 - 54.0 fl 04/08/2025 11:02 AM [facility] MPV 11.0 6.0 - 12.0 fL 04/08/2025 11:02 AM [facility] Platelets 118(L) 140 - 450 10*3/mm3 04/08/2025 11:02 AM [facility] Neutrophil % 85.1(H) 42.7 - 76.0 % 04/08/2025 11:02 AM [facility] Lymphocyte % 9.3(L) 19.6 - 45.3 % 04/08/2025 11:02 AM [facility] Monocyte % 4.6(L) 5.0 - 12.0 % 04/08/2025 11:02 AM [facility] Eosinophil % 0.3 0.3 - 6.2 % 04/08/2025 11:02 AM [facility] Basophil % 0.2 0.0 - 1.5 % 04/08/2025 11:02 AM [facility] Immature Grans % 0.5 0.0 - 0.5 % 04/08/2025 11:02 AM [facility] Neutrophils, Absolute 8.57(H) 1.70 - 7.00 10*3/mm3 04/08/2025 11:02 AM [facility] Lymphocytes, Absolute 0.94 0.70 - 3.10 10*3/mm3 04/08/2025 11:02 AM [facility] Monocytes, Absolute 0.46 0.10 - 0.90 10*3/mm3 04/08/2025 11:02 AM [facility] Eosinophils, Absolute 0.03 0.00 - 0.40 10*3/mm3 04/08/2025 11:02 AM [facility] Basophils, Absolute 0.02 0.00 - 0.20 10*3/mm3 04/08/2025 11:02 AM [facility] Immature Grans, Absolute 0.05 [...] [facility]
[address] [place] [address], * (ABNORMAL) Basic Metabolic Panel (04/08/2025 8:41 [...] Result Performing Organization Address City/[facility]/ZIP Co de Phone Number [facility]
[address] [place] [address], * Heparin Anti-Xa (04/08/2025 8:41 AM EDT) Heparin Anti-Xa ([facility]) 0.33 0.30 - 0.70 IU/ml 04/08/2025 9:40 AM EDT [facility] Blood Venipuncture / Unknown 04/08/2025 8:41 AM EDT 04/08/2025 9:10 AM EDT Sushil Dean Jr., MD LAB BLOOD ORDERABLES Fi nal Result Performing Organization Address City/[facility]/ZIP Co de Phone Number [facility]
[address] [place] [address], * FL C Arm During Surgery (04/07/2025 [...] Result Performing Organization Address City/[facility]/ZIP Co de Phone Number [facility]
[address] [place] [address], [place] [phone] [facility]
[address] [place] [address], [place] [phone] * Anaerobic Culture - Swab, Leg, Right (04/07/2025 9:14 PM EDT) Anaerobic Culture No anaerobes isolated at 5 days ALIZA 04/13/2025 7:21 AM EDT [facility] Swab Structure of right lower limb / Unknown Collection / Unknown 04/07/2025 9:14 PM EDT 04/08/2025 4:36 AM EDT us Sushil Dean Jr., MD MICROBIOLOGY - GENERAL ORDERABLES Final Result [facility]
[address] [place] [address], * Anaerobic Culture - Tissue, Leg (04/07/2025 9:13 PM EDT) Anaerobic Culture No anaerobes isolated at 5 days ALIZA 04/13/2025 7:21 AM EDT [facility] Tissue Lower limb structure / Unknown Collection / Unknown 04/07/2025 9:13 PM EDT 04/08/2025 4:54 AM EDT Jason Álvarez DO MICROBIOLOGY - GENERAL ORDERABLE S Final Result Performing Organization Address [facility]/State/ZIP Co de Phone Number [facility]
[address] [place] [address], * Tissue / Bone Culture - Tissue, [...] Final Result [facility]
[address] [place] [address], [facility]
[address] [place] [address], [place] [phone] * (ABNORMAL) Wound Culture - Swab, Leg, [...] seen 10:38 AM EDT [facility] Final Result [facility]
[address] [place] [address], [place] [phone] [facility]
[address] [place] [address], [place] [phone] * Anaerobic Culture - Swab, Leg, Right [...] Result [facility]
[address] [place] [address], * Heparin Anti-Xa (04/07/2025 9:10 AM EDT) Pathologist [facility] Heparin Anti-Xa ([facility]) 0.30 0.30 - 0.70 IU/ml 04/07/2025 10:12 AM EDT [facility] Blood Venipuncture / Unknown 04/07/2025 9:10 AM EDT 04/07/2025 9:38 AM EDT Una Perla PharmD LAB BLOOD ORDERABLES Final R esult Performing Organization Address City/[facility]/ZIP Co de Phone Number [facility]
[address] [place] [address], * (ABNORMAL) CBC Auto Differential (04/07/2025 9:10 [...] 12.3 - 15.4 % 04/07/2025 9:50 AM [facility] RDW-SD 39.9 37.0 - 54.0 fl 04/07/2025 9:50 AM [facility] MPV 10.8 6.0 - 12.0 fL 04/07/2025 9:50 AM [facility] Platelets 149 140 - 450 10*3/mm3 04/07/2025 9:50 AM [facility] Neutrophil % 66.7 42.7 - 76.0 % 04/07/2025 9:50 AM [facility] Lymphocyte % 20.5 19.6 - 45.3 % 04/07/2025 9:50 AM [facility] Monocyte % 9.8 5.0 - 12.0 % 04/07/2025 9:50 AM [facility] Eosinophil % 2.1 0.3 - 6.2 % 04/07/2025 9:50 AM [facility] Basophil % 0.3 0.0 - 1.5 % 04/07/2025 9:50 AM [facility] Immature Grans % 0.6(H) 0.0 - 0.5 % 04/07/2025 9:50 AM [facility] Neutrophils, Absolute 5.75 1.70 - 7.00 10*3/mm3 04/07/2025 9:50 AM [facility] Lymphocytes, Absolute 1.77 0.70 - 3.10 10*3/mm3 04/07/2025 9:50 AM [facility] Monocytes, Absolute 0.85 0.10 - 0.90 10*3/mm3 04/07/2025 9:50 AM [facility] Eosinophils, Absolute 0.18 0.00 - 0.40 10*3/mm3 04/07/2025 9:50 AM [facility] Basophils, Absolute 0.03 0.00 - 0.20 10*3/mm3 04/07/2025 9:50 AM [facility] Immature Grans, Absolute 0.05 [...] t [facility]
[address] [place] [address], * (ABNORMAL) Basic Metabolic Panel (04/07/2025 9:10 [...] t [facility]
[address] [place] [address], * MRI Tibia Fibula Right With & [...] [place] 04/07/2025 9:58 AM EDT Workstation ID: [id number] Narrative 04/07/2025 9:58 AM EDT MRI TIBIA [...] [place] 04/07/2025 9:58 AM EDT Workstation ID: [id number] Sushil Dean Jr., MD IMG MRI ORDERABLES Mary Beth l Result * Heparin Anti-Xa (04/07/2025 1:42 AM EDT) [facility] Heparin Anti-Xa ([facility]) 0.38 0.30 - 0.70 IU/ml 04/07/2025 2:14 AM EDT [facility] Blood Venipuncture / Unknown 04/07/2025 1:42 AM EDT 04/07/2025 1:54 AM EDT Chelsie Turpin [facility] LAB BLOOD ORDERABLES Final R esult [facility]
[address] [place] [address], * Heparin Anti-Xa (04/06/2025 7:16 PM EDT) [facility] Heparin Anti-Xa ([facility]) 0.33 0.30 - 0.70 IU/ml 04/06/2025 7:50 PM EDT [facility] Blood Venipuncture / Unknown 04/06/2025 7:16 PM EDT 04/06/2025 7:35 PM EDT Cherri Beatty [facility] LAB BLOOD ORDERABLES Final Res ult Performing Organization Address [facility] Co de Phone Number [facility]
[address] [place] [address], * Potassium (04/06/2025 7:16 PM EDT) [facility] Potassium 4.0 3.5 - 5.2 mmol/L 04/06/2025 7:53 PM EDT [facility] Blood Venipuncture / Unknown 04/06/2025 7:16 PM EDT 04/06/2025 7:35 PM EDT Jason Álvarez DO LAB BLOOD ORDERABLES Final Resul t Performing Organization Address [facility] de Phone Number [facility]
[address] [place] [address], * (ABNORMAL) Heparin Anti-Xa (04/06/2025 12:36 PM EDT) [facility] Heparin Anti-Xa ([facility]) 0.24(L) 0.30 - 0.70 IU/ml 04/06/2025 1:23 PM EDT [facility] Blood Venipuncture / Unknown 04/06/2025 12:36 PM EDT 04/06/2025 1:07 PM EDT Una ePrla PharmD LAB BLOOD ORDERABLES Final R esult Performing Organization Address [facility] Co de Phone Number [facility]
[address] [place] [address], * (ABNORMAL) Heparin Anti-Xa (04/06/2025 3:42 AM EDT) [facility] Heparin Anti-Xa ([facility]) 0.25(L) 0.30 - 0.70 IU/ml 04/06/2025 5:30 AM EDT [facility] Blood Venipuncture / Unknown 04/06/2025 3:42 AM EDT 04/06/2025 4:59 AM EDT Chelsie Dyana [facility] LAB BLOOD ORDERABLES Final R esult [facility]
[address] [place] [address], * (ABNORMAL) Basic Metabolic Panel (04/06/2025 3:42 AM EDT) [facility] Glucose 94 65 - 99 mg/dL [...] 3:42 AM EDT 04/06/2025 5:20 AM EDT [facility] - 04/06/2025 5:59 AM [...] t [facility]
[address] [place] [address], * (ABNORMAL) CBC Auto Differential (04/06/2025 3:41 [...] 79.0 - 97.0 fL 04/06/2025 5:[facility] MCH 27.4 26.6 - 33.0 pg 04/06/2025 5:04 AM [facility] MCHC 31.8 31.5 - 35.7 g/dL 04/06/2025 5:04 AM [facility] RDW 12.8 12.3 - 15.4 % 04/06/2025 5:04 AM [facility] RDW-SD 40.0 37.0 - 54.0 fl 04/06/2025 5:04 AM [facility] MPV 11.7 6.0 - 12.0 fL 04/06/2025 5:04 AM [facility] Platelets 115(L) 140 - 450 10*3/mm3 04/06/2025 5:04 AM [facility] Neutrophil % 65.3 42.7 - 76.0 % 04/06/2025 5:04 AM [facility] Lymphocyte % 20.5 19.6 - 45.3 % 04/06/2025 5:04 AM [facility] Monocyte % 11.8 5.0 - 12.0 % 04/06/2025 5:04 AM [facility] Eosinophil % 1.8 0.3 - 6.2 % 04/06/2025 5:04 AM [facility] Basophil % 0.3 0.0 - 1.5 % 04/06/2025 5:04 [facility] Immature Grans % 0.3 0.0 - 0.5 % 04/06/2025 5:04 AM [facility] Neutrophils, Absolute 7.09(H) 1.70 - 7.00 10*3/mm3 04/06/2025 5:04 AM [facility] Lymphocytes, Absolute 2.23 0.70 - 3.10 10*3/mm3 04/06/2025 5:04 AM [facility] Monocytes, Absolute 1.28(H) 0.10 - 0.90 10*3/mm3 04/06/2025 5:04 AM EDT [facility] Eosinophils, Absolute 0.20 0.00 - [...] t Performing Organization Address City/[facility] Co de Phone Number [facility]
[address] [place] [address], [place] [phone] * Heparin Anti-Xa (04/05/2025 8:43 PM EDT) Pathologist [facility] Heparin Anti-Xa ([facility]) 0.38 0.30 - 0.70 IU/ml 04/05/2025 9:09 PM EDT [facility] Blood Venipuncture / Unknown 04/05/2025 8:43 PM EDT 04/05/2025 8:55 PM EDT us Cherri Beatty [facility] LAB BLOOD ORDERABLES Final Res ult Performing Organization Address City/[facility] Co de Phone Number [facility]
[address] [place] [address], [place] [phone] * CK (04/05/2025 12:15 PM EDT) Creatine Kinase 140 20 - 200 U/L 04/05/2025 1:31 PM EDT [facility] Blood Venipuncture / Unknown 04/05/2025 12:15 PM EDT 04/05/2025 1:03 PM EDT Carlton Meda MD LAB BLOOD ORDERABLES Final R esult Performing Organization Address City/[facility]/ZIP Co de Phone Number [facility]
[address] [place] [address], * (ABNORMAL) Heparin Anti-Xa (04/05/2025 12:15 PM EDT) [facility] Heparin Anti-Xa (UFH) 0.17(L) 0.30 - 0.70 IU/ml 04/05/2025 1:21 PM EDT [facility] Blood Venipuncture / Unknown 04/05/2025 12:15 PM EDT 04/05/2025 1:04 PM EDT Una Perla PharmD LAB BLOOD ORDERABLES Final R esult Performing Organization Address City/[facility] Co de Phone Number [facility]
[address] [place] [address], * (ABNORMAL) aPTT (04/05/2025 3:54 AM EDT) [facility] PTT 35.3(L) 60.0 - 90.0 seconds 04/05/2025 4:31 AM EDT [facility] Blood Venipuncture / Unknown 04/05/2025 3:54 AM EDT 04/05/2025 4:15 AM EDT Narrative [facility] - 04/05/2025 4:31 AM EDT PTT = The equivalent PTT values for the therapeutic range of heparin levels at 0.3 to 0.5 U/ml are 60 to 70 seconds. [employer] LAB BLOOD ORDERABLES Final R esult [facility]
[address] [place] [address], * Heparin Anti-Xa (04/05/2025 3:54 AM EDT) Pathologist [facility] Heparin Anti-Xa (UFH) 0.30 0.30 - 0.70 IU/ml 04/05/2025 4:32 AM EDT [facility] Blood Venipuncture / Unknown 04/05/2025 3:54 AM EDT 04/05/2025 4:15 AM EDT [employer] LAB BLOOD ORDERABLES Final R esult Performing Organization Address City/[facility]/ZIP Co de Phone Number [facility]
[address] [place] [address], * (ABNORMAL) CBC Auto Differential (04/05/2025 3:54 AM EDT) [facility] WBC 11.18(H) 3.40 - 10.80 10*3/mm3 04/05/2025 [...] 31.5 - 35.7 g/dL 04/05/2025 4:20 AM [facility] RDW 12.9 12.3 - 15.4 % 04/05/2025 4:20 AM [facility] RDW-SD 39.7 37.0 - 54.0 fl 04/05/2025 4:20 AM [facility] MPV 10.2 6.0 - 12.0 fL 04/05/2025 4:20 AM [facility] Platelets 160 140 - 450 10*3/mm3 04/05/2025 4:20 AM [facility] Neutrophil % 73.5 42.7 - 76.0 % 04/05/2025 4:20 AM [facility] Lymphocyte % 14.0(L) 19.6 - 45.3 % 04/05/2025 4:20 AM [facility] Monocyte % 11.0 5.0 - 12.0 % 04/05/2025 4:20 AM [facility] Eosinophil % 0.8 0.3 - 6.2 % 04/05/2025 4:20 AM [facility] Basophil % 0.3 0.0 - 1.5 % 04/05/2025 4:20 AM [facility] Immature Grans % 0.4 0.0 - 0.5 % 04/05/2025 4:20 AM [facility] Neutrophils, Absolute 8.23(H) 1.70 - 7.00 10*3/mm3 04/05/2025 4:20 AM [facility] Lymphocytes, Absolute 1.56 0.70 - 3.10 10*3/mm3 04/05/2025 4:20 AM [facility] Monocytes, Absolute 1.23(H) 0.10 - 0.90 10*3/mm3 04/05/2025 4:20 AM [facility] Eosinophils, Absolute 0.09 0.00 - 0.40 10*3/mm3 04/05/2025 4:20 AM [facility] Basophils, Absolute 0.03 0.00 - 0.20 10*3/mm3 04/05/2025 4:20 AM EDT [facility] Immature Grans, Absolute 0.04 0.00 [...] esult [facility]
[address] [place] [address], * (ABNORMAL) Basic Metabolic Panel (04/05/2025 3:54 [...] 3:54 AM EDT 04/05/2025 4:15 AM EDT [facility] - 04/05/2025 4:40 AM [...] ORDERABLES Final Re sult [facility]
[address] [place] [address], * (ABNORMAL) aPTT (04/05/2025 12:18 AM EDT) PTT 33.6(L) 60.0 - 90.0 seconds 04/05/2025 12:53 AM EDT [facility] Blood Venipuncture / Unknown 04/05/2025 12:18 AM EDT 04/05/2025 12:37 AM EDT [facility] - 04/05/2025 12:53 AM EDT PTT = The equivalent PTT values for the therapeutic range of heparin levels at 0.3 to 0.5 U/ml are 60 to 70 seconds. [employer] LAB BLOOD ORDERABLES Final R esult [facility]
[address] [place] [address], [place] [phone] * (ABNORMAL) Protime-INR (04/05/2025 12:18 AM EDT) Protime 15.9(H) 12.2 - 15.3 Seconds 04/05/2025 12:53 AM EDT [facility] INR 1.19(H) 0.89 - 1.12 04/05/2025 12:53 AM EDT [facility] Blood Venipuncture / Unknown 04/05/2025 12:18 AM EDT 04/05/2025 12:37 AM EDT [employer] LAB BLOOD ORDERABLES Final R esult Performing Organization Address [facility] Co de Phone Number [facility]
[address] [place] [address], [place] [phone] * Heparin Anti-Xa (04/05/2025 12:18 AM EDT) Pathologist [facility] Heparin Anti-Xa ([facility]) 0.39 0.30 - 0.70 IU/ml 04/05/2025 12:54 AM EDT [facility] Blood Venipuncture / Unknown 04/05/2025 12:18 AM EDT 04/05/2025 12:37 AM EDT [employer] LAB BLOOD ORDERABLES Final R esult Performing Organization Address City/[facility]/ZIP Co de Phone Number [facility]
[address] [place] [address], [place] [phone] * MRI Tibia Fibula Right With & [...] MD 04/04/2025 11:00 PM EDT Workstation ID: [id number] Narrative 04/04/2025 11:00 PM EDT MRI TIBIA [...] MD 04/04/2025 11:00 PM EDT Workstation ID: [id number] Leonora Shepherd MD IMG MRI ORDERABLES Final Resu lt * POC Creatinine (04/04/2025 2:49 PM EDT) Creatinine 1.10 0.60 - 1.30 mg/dL 04/07/2025 7:14 PM EDT [facility] Comment:Serial Number: [id number] [id number] Venous Blood 04/04/2025 2:49 PM EDT 04/07/2025 7:14 PM EDT Jason Álvarez DO POINT OF CARE TEST ORDERABLES Fi nal Result [facility]
[address] [place] [address], [place] [phone] * (ABNORMAL) CBC Auto Differential (04/04/2025 2:47 PM EDT) [facility] Signature WBC 12.72(H) 3.40 - 10.80 [...] Result [facility]
[address] [place] [address], * (ABNORMAL) C-reactive Protein (04/04/2025 2:47 PM EDT) Pathologist [facility] C-Reactive Protein 8.57(H) 0.00 - 0.50 mg/dL 04/04/2025 3:26 PM EDT [facility] Blood Venipuncture / Unknown 04/04/2025 2:47 PM EDT 04/04/2025 2:52 PM EDT Mario Ortiz Keo LAB BLOOD ORDERABLES Fin al Result [facility]
[address] [place] [address], * (ABNORMAL) Sedimentation Rate (04/04/2025 2:47 PM EDT) [facility] Sed Rate 51(H) 0 - 15 mm/hr 04/04/2025 3:06 PM EDT [facility] Blood Venipuncture / Unknown 04/04/2025 2:47 PM EDT 04/04/2025 2:52 PM EDT Mario Ortiz Keo LAB BLOOD ORDERABLES Fin al Result Performing Organization Address City/[facility]/ZIP Co de Phone Number [facility]
[address] [place] [address], * Comprehensive Metabolic Panel (04/04/2025 2:47 PM EDT) [facility] Glucose 90 65 - 99 mg/dL [...] EDT [facility] Albumin [...] Ratio 1.3 g/dL 04/04/2025 3:26 PM EDT [facility] BUN/Creatinine Ratio 19.5 7.0 - 25.0 04/04/2025 3:26 PM T [facility] Anion Gap 10.7 5.0 - 15.0 mmol/L 04/04/2025 3:26 PM T [facility] eGFR 102.5 >60.0 mL/min/1.7 3 04/04/2025 3:26 PM [facility] Blood Venipuncture / Unknown 04/04/2025 2:47 PM EDT 04/04/2025 2:52 PM EDT Narrative [facility] - 04/04/2025 3:26 PM EDT [...] Result [facility]
[address] [place] [address], documented in this encounter Visit Diagnoses Diagnosis [...] BPA Driven Protocol Open Order & Select [facility] Electrolyte Replacement Protocol Algorithm [...] BPA Driven Protocol Open Order & Select [facility] Electrolyte Replacement Protocol Algorithm [...] Salazar, KELL)1943 (Given - Provider: Anahy Marcelino, [employer])2129 (Canceled Entry - Provider: Anahy Marcelino [employer] - Comment: previously given) 0837 (Given - [...] medication prescribed for a lower pain scale. ([facility]) If given for pain, use [...] Continuous Medication Order 04/09/2025 04/10/2025 04/11/2025 heparin [id number] units/250 mL (100 units/mL) in 0.45 % [...] Provider: Shirley Hart, RN)1508 (Given - Provider: Shirlye Hart, RN)2030 (Given - Provider: Alberto Dillon, [...] BPA Driven Protocol Open Order & Select [facility] Electrolyte Replacement Protocol Algorithm [...] documented as of this encounter Care Teams Shallot Cleaner Relationship Specialty Start Date End Date Provider, [place] [address] PCP - General 05/09/23 documented as of this encounter
--- OUTSIDE RECORDS SUMMARY | 2025-04-08 15:34 | XMS_ITS | Encounter Summary ---
Author Organization [facility] Address [address] [place] [address] Care Team Providers Care Screw Cutter Name Role Phone Provider, No Known Primary Care Provider Unavail able Reason for Visit * Auth/Cert Specialty Diagnoses / Procedures Referred By Bulmaro muniz Referred To Contact Diagnoses Right BKA infection Referral ID Status Reason Start Date Expiration Date Visits Re quested Visits Authorized [id number] 1 1 Encounter Details Date Type Department Care Team (Late st Contact Info) Description 04/08/2025 3:34 PM EDT Anesthesia Event [facility] OR [address] [place] [address] Ulises Hoffman MD [address] [place] [address] Jairo Brooks MD [address] [place] [address] Anesthesia Record Procedure Summary Procedure Name Responsible [...] = 0.6 oz pur e alcohol) [facility] Utilities Answer Date Recorded In the past 12 months has [employer], oil, or water [employer] threatened to shut off services in your [...] Date: 04/08/25 Room / Location: [facility] OR [address] [place] [address] [facility] [place] Anesthesia Start: 1533 Anesthesia Stop: [...] ROS Abdominal Substance History - negative use DRIVER LICENSE AGENT negative construction 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
--- OUTSIDE RECORDS SUMMARY | 2025-05-03 07:52 | XMS_ITS | Clinical Summary ---
Author Organization [facility] Address [address] [place] [address] Phone Care Team Providers Care Supervisor [employer]al Ironworking Name Role Phone Unavailable Unavailable Conditions or Problems No information available. Medications No information available. Medications Administered No information available. Allergies, Adverse Reactions, Alerts No information available. Results No information available. Plan of Care No information available. Procedures No information available. Vital Signs No information available. Immunizations No information available. Advance Directives No information available.
--- OUTSIDE RECORDS SUMMARY | 2025-05-03 07:52 | XMS_ITS | Patient Health Record ---
[facility] [address] [place] [address] [place] [id number] Care Team Providers Care Duplicating Machine Servicer Name Role Phone Zeeshan Salazar Primary Care Provider [phone] Allergies No Known Allergies Medications Medication SIG [...] W/U Status Risk Notes Problem Essential hypertension (11142691) HTN [Hypertension] (401.9) Active confirmed appears resolved Problem Hypothyroidism (02320293) Hypothyroidism NOS (244.9) Active confirmed Problem Hyperlipidemia (44301916) Hyperlipidemia (272.4) Active confirmed Problem Constipation (43539671) Constipation, unspecified constipation type (K59.00) Active confirmed Problem History of pulmonary embolism on long-term anticoagulation therapy (91546193679659480 ) Hx pulmonary embolism (Z86.711) Active confirmed Problem Long-term current use of anticoagulant (842821909) Current use of wire drawing setter anticoagulation (Z79.01) Active confirmed Problem Adjustment disorder with anxious mood (37453798) Adjustment disorder with anxious mood (F43.22) Active confirmed Problem History of pulmonary embolus (749846161) History of pulmonary embolus (PE) (Z86.711) Active confirmed Problem Methicillin resistant Staphylococcus aureus infection (disorder) (760379304) Infection of wound due to methicillin resistant Staphylococcus aureus (MRSA) (A49.02) Active confirmed Problem Arthritis of knee (416836927) Arthritis of knee (M17.10) Active confirmed Problem Amputated below knee (585321462) Status post below knee amputation of right lower extremity (Z89.511) Active confirmed Problem Gastroesophageal reflux disease (499260122) Gastroesophageal reflux disease, unspecified whether esophagitis present [...]
--- OUTSIDE RECORDS SUMMARY | 2025-05-03 07:53 | XMS_ITS | Data Portability ---
Author Organization [facility] [place] [facility] ADMIN Address [address] [place] [id number] Care Team Providers Care Scanning Tech Name Role Phone SYBIL WILLIAM Primary Care Provider [phone] Assessment No assessment recorded. Plan of Treatment Reminders Order Date Submit Date Provider Last Modified By Organization Details Last Modified Time Details Appointments Establish ed Visit 15 min 2024 10:00A M Randy Torres MD Not available Not available Not available Lab C-reactiv e protein, quantitat nasim, serum or plasma [address] Lab, [address] [facility], [place], [address], 05/02/2024 17:36:31 ESR (erythroc yte sedimenta tion rate), blood [address] Lab, [address] [facility], [place], [address], 05/02/2024 17:36:31 C-reactiv e protein, quantitat nasim, serum or plasma 2023 024 [place] [address] [facility], [address], [address], [place], [address], 11/01/2023 08:08:32 ESR (erythroc yte sedimenta tion rate), blood 2023 024 [place] [address] [facility], [address], [address], [place], [address], 11/01/2023 08:08:32 CBC w/ auto diff 2023 024 [facility], [address] [facility], [place], [address], 10/24/2023 16:12:13 CMP, serum or plasma 2023 024 [facility], [address] [facility], [place], [address], 10/24/2023 16:42:07 CBC w/ auto diff 2023 024 [facility], [address] [facility], [place], [address], 07/25/2023 15:22:25 CMP, serum or plasma 2023 024 [facility], [address] [facility], [place], [address], 07/25/2023 16:32:05 prothromb in (factor II) [id number] mutation, blood [address] Lab, [address] [facility], [place], [address], 08/07/2023 08:55:21 factor VIII activity, plasma [address] Lab, [address] [facility], [place], [address], 08/01/2023 08:26:01 protein C + protein S, functiona l panel, plasma [address] Lab, [address] [place], [address], 08/01/2023 08:26:02 Referral None recorded. Procedures None recorded. Surgeries None recorded. Imaging None recorded. Medication Orders doxycycli ne hyclate 100 mg capsule 2023 024 [facility], [address] [place] [address], [address], [place], [address], 10/25/2023 09:18:27 Patient TargetsNo targets recorded. Patient InstructionsNo instructions recorded. Reason for Referral None Reported. Results Created Date Observation Date Name Description Value Unit Range Abnormal Flag Note LastModifiedBy Organization Detail LastModifiedTime 07/06/20 23 07/07/2023 COMP. METAB OLIC PANEL (14) glucose 92 mg/dL 70-99 Not Available [facility] ([facility]) [address] [place], [address], 07/07/2023 13:08:40 07/06/20 23 07/07/2023 COMP. METAB OLIC PANEL (14) BUN 18 mg/dL 6-24 Not Available [facility] ([facility]) [address] [place], [address], 07/07/2023 13:08:40 07/06/20 23 07/07/2023 COMP. METAB OLIC PANEL (14) creatinine 0.85 mg/dL 0.76-1 .27 Not Available [facility] ([facility]) [address] [place], [address], 07/07/2023 13:08:40 07/06/20 23 07/07/2023 COMP. METAB OLIC PANEL (14) eGFR 111 mL/mi n/1.7 3 >59 Not Available [facility] ([facility]) [address] [place], [address], 07/07/2023 13:08:40 07/06/20 23 07/07/2023 COMP. METAB OLIC PANEL (14) BUN/creatini ne ratio 21 9-20 above high normal Not Available [facility] ([facility]) [address] [place], [address], 07/07/2023 13:08:40 07/06/20 23 07/07/2023 COMP. METAB OLIC PANEL (14) sodium 140 mmol/ L 134-14 4 Not Available [facility] ([facility]) [address] [facility] [place], [address], 07/07/2023 13:08:40 07/06/20 23 07/07/2023 COMP. METAB OLIC PANEL (14) potassium 4.1 mmol/ L 3.5-5. 2 Not Available [facility] ([facility]) [address] [facility], [place], [address], 07/07/2023 13:08:40 07/06/20 23 07/07/2023 COMP. METAB OLIC PANEL (14) chloride 105 mmol/ L 96-106 Not Available [facility] ([facility]) [address] [facility], [place], [address], 07/07/2023 13:08:40 07/06/20 23 07/07/2023 COMP. METAB OLIC PANEL (14) carbon dioxide, total 22 mmol/ L - Not Available [facility] ([facility]) [address] [facility] [place], [address], 07/07/2023 13:08:40 07/06/20 23 07/07/2023 COMP. METAB OLIC PANEL (14) calcium 8.9 mg/dL 8.7-10 .2 Not Available [facility] ([facility]) [address] [facility], [place], [address], 07/07/2023 13:08:40 07/06/20 23 07/07/2023 COMP. METAB OLIC PANEL (14) protein, total 7.3 g/dL 6.0-8. 5 Not Available [facility] ([facility]) [address] [facility] [place], [address], 07/07/2023 13:08:40 07/06/20 23 07/07/2023 COMP. METAB OLIC PANEL (14) albumin 4.3 g/dL 4.1-5. 1 Not Available [facility] ([facility]) [address] [facility] [place], [address], 07/07/2023 13:08:40 07/06/20 23 07/07/2023 COMP. METAB OLIC PANEL (14) globulin, total 3.0 g/dL 1.5-4. 5 Not Available [facility] ([facility]) [address] [facility] [place], [address], 07/07/2023 13:08:40 07/06/20 23 07/07/2023 COMP. METAB OLIC PANEL (14) A/G ratio 1.4 1.2-2. 2 Not Available [facility] ([facility]) [address] [facility] [place], [address], 07/07/2023 13:08:40 07/06/20 23 07/07/2023 COMP. METAB OLIC PANEL (14) bilirubin, total 0.3 mg/dL 0.0-1. 2 Not Available [facility] ([facility]) [address] [facility] [place], [address], 07/07/2023 13:08:40 07/06/20 23 07/07/2023 COMP. METAB OLIC PANEL (14) alkaline phosphatase 85 IU/L 44-121 Not Available [facility] ([facility]) [address] [facility] [place], [address], 07/07/2023 13:08:40 07/06/20 23 07/07/2023 COMP. METAB OLIC PANEL (14) AST (SGOT) 24 IU/L 0-40 Not Available [facility] ([facility]) [address] [facility] [place], [address], 07/07/2023 13:08:40 07/06/20 23 07/07/2023 COMP. METAB OLIC PANEL (14) ALT (SGPT) 25 IU/L 0-44 Not Available [facility] ([facility]) [address] [facility], [place], [address], 07/07/2023 13:08:40 07/06/20 23 07/07/2023 SEDIM ENTAT ION RATE- WESTE RGREN sedimentatio n rate-westerg los 28 mm/HR 0-15 above high normal Not Available [facility] ([facility]) [address] [facility], [place], [address], 07/07/2023 13:08:42 07/06/20 23 07/07/2023 C-CHANA CTIVE PROTE IN, QUANT C-reactive protein, quant 11 mg/L 0-10 above high normal Not Available [facility] ([facility]) [address] [facility], [place], [address], 07/07/2023 13:08:43 07/25/19 24 07/25/2023 CBC AUTO W DIFF WBC 6.7 K/uL 4.0-10 .5 Not Available [facility] ([facility]) [address] [facility], [place], [address], 07/25/2023 15:22:25 07/25/19 24 07/25/2023 CBC AUTO W DIFF RBC 5.7 M/mm3 4.7-6. 1 Not Available [facility] ([facility]) [address] [facility], [place], [address], 07/25/2023 15:22:25 07/25/19 24 07/25/2023 CBC AUTO W DIFF HGB 14.8 gm/dL 13.5-1 8.0 Not Available [facility] ([facility]) [address] [place], [address], 07/25/2023 15:22:25 07/25/19 24 07/25/2023 CBC AUTO W DIFF HCT 45.4 % 42.0-5 2.0 Not Available [facility] ([facility]) [address] [place], [address], 07/25/2023 15:22:25 07/25/19 24 07/25/2023 CBC AUTO W DIFF MCV 79.6 fL 78-100 Not Available [facility] ([facility]) [address], [place], [address], 07/25/2023 15:22:25 07/25/19 24 07/25/2023 CBC AUTO W DIFF MCH 26.0 pg 27-31 low Not Available [facility] ([facility]) [address], [place], [address], 07/25/2023 15:22:25 07/25/19 24 07/25/2023 CBC AUTO W DIFF MCHC 32.6 g/dL 32-36 Not Available [facility] ([facility]) [address], [place], [address], 07/25/2023 15:22:25 07/25/19 24 07/25/2023 CBC AUTO W DIFF RDW 13.7 % 11.5-1 4.0 Not Available [facility] ([facility]) [address] , [place], [address], 07/25/2023 15:22:25 07/25/19 24 07/25/2023 CBC AUTO W DIFF platelet count 279 K/uL 150-45 0 Not Available [facility] ([facility]) [address] , [place], [address], 07/25/2023 15:22:25 07/25/19 24 07/25/2023 CBC AUTO W DIFF MPV 10.0 fL 6-9.5 high Not Available [facility] ([facility]) [address] , [place], [address], 07/25/2023 15:22:25 07/25/19 24 07/25/2023 CBC AUTO W DIFF neutrophil% 61.2 % 43-65 Not Available [facility] ([facility]) [address] , [place], [address], 07/25/2023 15:22:25 07/25/19 24 07/25/2023 CBC AUTO W DIFF lymphocyte% 25.7 % 20.5-4 5.5 Not Available [facility] ([facility]) [address], [place], [address], 07/25/2023 15:22:25 07/25/19 24 07/25/2023 CBC AUTO W DIFF monocyte% 9.2 % 5.5-11 .7 Not Available [facility] ([facility]) [address], [place], [address], 07/25/2023 15:22:25 07/25/19 24 07/25/2023 CBC AUTO W DIFF eosinophil% 3.0 % 0.9-2. 9 high Not Available [facility] ([facility]) [address], [place], [address], 07/25/2023 15:22:25 07/25/19 24 07/25/2023 CBC AUTO W DIFF basophil% 0.6 % 0.2-1. 0 Not Available [facility] ([facility]) [address], [place], [address], 07/25/2023 15:22:25 07/25/19 24 07/25/2023 CBC AUTO W DIFF immature granulocytes % 0.3 % 0.0-0. 8 Not Available [facility] ([facility]) [address], [place], [address], 07/25/2023 15:22:25 07/25/19 24 07/25/2023 CBC AUTO W DIFF nucleated red blood cells % 0.0 % Not Available [facility] ([facility]) [address] [place], [address], 07/25/2023 15:22:25 07/25/19 24 07/25/2023 CBC AUTO W DIFF neutrophil# 4.1 K/uL 2.2-4. 8 Not Available [facility] ([facility]) [address] [facility], [place], [address], 07/25/2023 15:22:25 07/25/19 24 07/25/2023 CBC AUTO W DIFF lymphocyte# 1.7 cell/ mcL 1.3-2. 9 Not Available [facility] ([facility]) [address] [facility], [place], [address], 07/25/2023 15:22:25 07/25/19 24 07/25/2023 CBC AUTO W DIFF monocyte# 0.6 cell/ mcL 0.3-0. 8 Not Available [facility] ([facility]) [address] [facility], [place], [address], 07/25/2023 15:22:25 07/25/19 24 07/25/2023 CBC AUTO W DIFF eosinophil# 0.2 cell/ mcL 0-0.2 Not Available [facility] ([facility]) [address] [facility], [place], [address], 07/25/2023 15:22:25 07/25/19 24 07/25/2023 CBC AUTO W DIFF basophil# 0.0 cell/ mcL 0.0-1. 0 Not Available [facility] ([facility]) [address] [place], [address], 07/25/2023 15:22:25 07/25/19 24 07/25/2023 CBC AUTO W DIFF immature gramulocytes # 0.02 K/uL Not Available [facility] ([facility]) [address] [place], [address], 07/25/2023 15:22:25 07/25/19 24 07/25/2023 CBC AUTO W DIFF nucleated red blood cells # 0.00 K/uL Not Available [facility] ([facility]) [address] [place], [address], 07/25/2023 15:22:25 07/25/19 24 07/25/2023 CBC AUTO W DIFF manual differential NO Not Available [facility] ([facility]) [address], [place], [address], 07/25/2023 15:22:25 07/25/19 24 07/25/2023 PT (PROT HROMB IN TIME) W INR prothrombin time 11.0 secon ds 9.3-11 .4 Not Available [facility] ([facility]) [address], [place], [address], 07/25/2023 16:27:47 07/25/19 24 07/25/2023 PT (PROT [...] Mecha nical Heart Valve s Not Available [facility] ([facility]) [address] , [place], [address], 07/25/2023 16:27:47 07/25/19 24 07/25/2023 COMP METAB OLIC PANEL sodium 142 mmol/ L 136-14 5 Not Available [facility] ([facility]) [address] , [place], [address], 07/25/2023 16:32:05 07/25/19 24 07/25/2023 COMP METAB OLIC PANEL potassium 3.7 mmol/ L 3.6-5. 0 Not Available [facility] ([facility]) [address] , [place], [address], 07/25/2023 16:32:05 07/25/19 24 07/25/2023 COMP METAB OLIC PANEL chloride 104 mmol/ L 98-107 Not Available [facility] ([facility]) [address], [place], [address], 07/25/2023 16:32:05 07/25/19 24 07/25/2023 COMP METAB OLIC PANEL carbon dioxide 29.1 mmol/ L 21.0-3 2.0 Not Available [facility] ([facility]) [address], [place], [address], 07/25/2023 16:32:05 07/25/19 24 07/25/2023 COMP METAB OLIC PANEL anion gap 12.6 Not Available [facility] ([facility]) [address], [place], [address], 07/25/2023 16:32:05 07/25/19 24 07/25/2023 COMP METAB OLIC PANEL glucose 85 mg/dL 70-120 Not Available [facility] ([facility]) [address] , [place], [address], 07/25/2023 16:32:05 07/25/19 24 07/25/2023 COMP METAB OLIC PANEL BUN 16 mg/dL 7-18 Not Available [facility] ([facility]) [address], [place], [address], 07/25/2023 16:32:05 07/25/19 24 07/25/2023 COMP METAB OLIC PANEL creatinine 0.8 mg/dL 0.6-1. 3 Not Available [facility] ([facility]) [address] , [place], [address], 07/25/2023 16:32:05 07/25/19 24 07/25/2023 COMP METAB OLIC PANEL glomerular filtration rate >60 mlper min 60- Not Available [facility] ([facility]) [address] , [place], [address], 07/25/2023 16:32:05 07/25/19 24 07/25/2023 COMP METAB OLIC PANEL total protein 7.6 g/dL 6.4-8. 2 Not Available [facility] ([facility]) [address], [place], [address], 07/25/2023 16:32:05 07/25/19 24 07/25/2023 COMP METAB OLIC PANEL albumin 3.5 g/dL 3.4-5. 0 Not Available [facility] ([facility]) [address] , [place], [address], 07/25/2023 16:32:05 07/25/19 24 07/25/2023 COMP METAB OLIC PANEL globulin 4.1 Not Available [facility] ([facility]) [address] , [place], [address], 07/25/2023 16:32:05 07/25/19 24 07/25/2023 COMP METAB OLIC PANEL alb/glob ratio 0.9 0.7-2 Not Available [facility] ([facility]) [address] , [place], [address], 07/25/2023 16:32:05 07/25/19 24 07/25/2023 COMP METAB OLIC PANEL calcium 8.8 mg/dL 8.5-10 .5 Not Available [facility] ([facility]) [address] , [place], [address], 07/25/2023 16:32:05 07/25/19 24 07/25/2023 COMP METAB OLIC PANEL bilirubin total 0.40 mg/dL 0.10-1 .00 Not Available [facility] ([facility]) [address] , [place], [address], 07/25/2023 16:32:05 07/25/19 24 07/25/2023 COMP METAB OLIC PANEL AST (SGOT) 24 U/L 0-37 Not Available [facility] ([facility]) [address] , [place], [address], 07/25/2023 16:32:05 07/25/19 24 07/25/2023 COMP METAB OLIC PANEL ALT (SGPT) 27 U/L 0-65 Not Available [facility] ([facility]) [address], [place], [address], 07/25/2023 16:32:05 07/25/19 24 07/25/2023 COMP METAB OLIC PANEL alk phosphatase 74 U/L 46-116 Not Available [facility] ([facility]) [address], [place], [address], 07/25/2023 16:32:05 07/25/19 24 07/27/2023 FACTO R VIII (8) ACTIV ITY factor VIII (8) activity 159 % 56-140 high Perfo rmed at: - [facility] [place] [address] [id number] Lab Direc tor: Linda ho MD, Phone : [phone] Not Available [facility] ([facility]) [address] [facility], [place], [address], 07/27/2023 06:19:41 07/25/19 24 07/27/2023 PROTE IN C FUNTI ONAL protein C functional 102 % 73-180 Perfo rmed at: [facility] - [facility] [place] [address] [place] [address] [facility] Lab Direc tor: Linda ho MD, Phone : [phone] Not Available [facility] ([facility]) [address] [facility], [place], [address], 07/27/2023 06:19:42 07/25/19 24 07/27/2023 PROTE IN [...] at: [facility] [place] [address] , [place] [address] Lab Direc tor: Linda ho MD, Phone : [phone] Not Available [facility] ([facility]) [address], [place], [address], 07/27/2023 06:19:43 07/25/19 24 08/03/2023 FACTO R [...] Facto r V Leide n (PMID : [id number]). Ad ditio nal risk facto rs [...] ders to discu ss resul ts at [phone]- GENE (7755 ). . Test Detai ls: Varia nt holly zed: c.*97 G>A, previ ously refer red to as G2021 0 A . Metho ds/Li mitat ions: DNA holly sis of the F2 gene (NM_0 [id number] .[id number]) was perfo rmed by P CR [...] e lindy cteri stics deter mined by [employer] rp. It has not been clear ed [...] 10.10 38/s4 1436- 021-0 110 8-x. PMID: 51389 767. . Randi BOYD. Proth rombi n Throm bophi za. 2005Jan 31 Updat ed 2020Aug 13 . In: Ricki MP, Bhaskar contreras HH, Mary RA, et al., edito rs. GeneR bassamw s(R) Inter net . Shyam gipson ([place]): Unive rsity of Shyam Lowery; 1992- 2020. [...] 018-0 322-z . Epub 2017Apr 13. PMID: 95576 698. Not Available [facility] ([facility]) [address], [place], [address], 08/03/2023 13:12:27 07/25/19 24 08/03/2023 FACTO R II, DNA HOLLY SIS reviewed by: Tacho camp, PhD Direc tor, Molec ular Briseyda ics Perfo rmed at: [facility] - [facility] [address] , [place] [address] Lab Direc tor: Yaneth Sullivan [facility] , Phone : [phone] Not Available [facility] ([facility]) [address] , [place], [address], 08/03/2023 13:12:27 10/24/19 24 10/24/2023 CBC AUTO W DIFF WBC 6.9 K/uL 4.0-10 .5 Not Available [facility] ([facility]) [address] , [place], [address], 10/24/2023 16:12:13 10/24/19 24 10/24/2023 CBC AUTO W DIFF RBC 5.7 M/mm3 4.7-6. 1 Not Available [facility] ([facility]) [address] , [place], [address], 10/24/2023 16:12:13 10/24/19 24 10/24/2023 CBC AUTO W DIFF HGB 14.7 gm/dL 13.5-1 8.0 Not Available [facility] ([facility]) [address] , [place], [address], 10/24/2023 16:12:13 10/24/19 24 10/24/2023 CBC AUTO W DIFF HCT 46.0 % 42.0-5 2.0 Not Available [facility] ([facility]) [address], [place], [address], 10/24/2023 16:12:13 10/24/19 24 10/24/2023 CBC AUTO W DIFF MCV 80.4 fL 78-100 Not Available [facility] ([facility]) [address] , [place], [address], 10/24/2023 16:12:13 10/24/19 24 10/24/2023 CBC AUTO W DIFF MCH 25.7 pg 27-31 low Not Available [facility] ([facility]) [address] , [place], [address], 10/24/2023 16:12:13 10/24/19 24 10/24/2023 CBC AUTO W DIFF MCHC 32.0 g/dL 32-36 Not Available [facility] ([facility]) [address] , [place], [address], 10/24/2023 16:12:13 10/24/19 24 10/24/2023 CBC AUTO W DIFF RDW 14.3 % 11.5-1 4.0 high Not Available [facility] ([facility]) [address] , [place], [address], 10/24/2023 16:12:13 10/24/19 24 10/24/2023 CBC AUTO W DIFF platelet count 258 K/uL 150-45 0 Not Available [facility] ([facility]) [address] , [place], [address], 10/24/2023 16:12:13 10/24/19 24 10/24/2023 CBC AUTO W DIFF MPV 9.6 fL 6-9.5 high Not Available [facility] ([facility]) [address] , [place], [address], 10/24/2023 16:12:13 10/24/19 24 10/24/2023 CBC AUTO W DIFF neutrophil% 70.1 % 43-65 high Not Available [facility] ([facility]) [address], [place], [address], 10/24/2023 16:12:13 10/24/19 24 10/24/2023 CBC AUTO W DIFF lymphocyte% 18.4 % 20.5-4 5.5 low Not Available [facility] ([facility]) [address], [place], [address], 10/24/2023 16:12:13 10/24/19 24 10/24/2023 CBC AUTO W DIFF monocyte% 8.7 % 5.5-11 .7 Not Available [facility] ([facility]) [address], [place], [address], 10/24/2023 16:12:13 10/24/19 24 10/24/2023 CBC AUTO W DIFF eosinophil% 2.3 % 0.9-2. 9 Not Available [facility] ([facility]) [address], [place], [address], 10/24/2023 16:12:13 10/24/19 24 10/24/2023 CBC AUTO W DIFF basophil% 0.4 % 0.2-1. 0 Not Available [facility] ([facility]) [address] [place], [address], 10/24/2023 16:12:13 10/24/19 24 10/24/2023 CBC AUTO W DIFF immature granulocytes % 0.1 % 0.0-0. 8 Not Available [facility] ([facility]) [address] [place], [address], 10/24/2023 16:12:13 10/24/19 24 10/24/2023 CBC AUTO W DIFF nucleated red blood cells % 0.0 % Not Available [facility] ([facility]) [address] [facility], [place], [address], 10/24/2023 16:12:13 10/24/19 24 10/24/2023 CBC AUTO W DIFF neutrophil# 4.8 K/uL 2.2-4. 8 Not Available [facility] ([facility]) [address], [place], [address], 10/24/2023 16:12:13 10/24/19 24 10/24/2023 CBC AUTO W DIFF lymphocyte# 1.3 cell/ mcL 1.3-2. 9 Not Available [facility] ([facility]) [address], [place], [address], 10/24/2023 16:12:13 10/24/19 24 10/24/2023 CBC AUTO W DIFF monocyte# 0.6 cell/ mcL 0.3-0. 8 Not Available [facility] ([facility]) [address], [place], [address], 10/24/2023 16:12:13 10/24/19 24 10/24/2023 CBC AUTO W DIFF eosinophil# 0.2 cell/ mcL 0-0.2 Not Available [facility] ([facility]) [address], [place], [address], 10/24/2023 16:12:13 10/24/19 24 10/24/2023 CBC AUTO W DIFF basophil# 0.0 cell/ mcL 0.0-1. 0 Not Available [facility] ([facility]) [address], [place], [address], 10/24/2023 16:12:13 10/24/19 24 10/24/2023 CBC AUTO W DIFF immature gramulocytes # 0.01 K/uL Not Available [facility] ([facility]) [address], [place], [address], 10/24/2023 16:12:13 10/24/19 24 10/24/2023 CBC AUTO W DIFF nucleated red blood cells # 0.00 K/uL Not Available [facility] ([facility]) [address], [place], [address], 10/24/2023 16:12:13 10/24/19 24 10/24/2023 CBC AUTO W DIFF manual differential NO Not Available [facility] ([facility]) [address], [place], [address], 10/24/2023 16:12:13 10/24/19 24 10/24/2023 COMP METAB OLIC PANEL sodium 139 mmol/ L 136-14 5 Not Available [facility] ([facility]) [address], [place], [address], 10/24/2023 16:42:07 10/24/19 24 10/24/2023 COMP METAB OLIC PANEL potassium 4.0 mmol/ L 3.6-5. 0 Not Available [facility] ([facility]) [address], [place], [address], 10/24/2023 16:42:07 10/24/19 24 10/24/2023 COMP METAB OLIC PANEL chloride 104 mmol/ L 98-107 Not Available [facility] ([facility]) [address], [place], [address], 10/24/2023 16:42:07 10/24/19 24 10/24/2023 COMP METAB OLIC PANEL carbon dioxide 28.1 mmol/ L 21.0-3 2.0 Not Available [facility] ([facility]) [address], [place], [address], 10/24/2023 16:42:07 10/24/19 24 10/24/2023 COMP METAB OLIC PANEL anion gap 10.9 Not Available [facility] ([facility]) [address] , [place], [address], 10/24/2023 16:42:07 10/24/19 24 10/24/2023 COMP METAB OLIC PANEL glucose 99 mg/dL 70-120 Not Available [facility] ([facility]) [address] , [place], [address], 10/24/2023 16:42:07 10/24/19 24 10/24/2023 COMP METAB OLIC PANEL BUN 16 mg/dL 7-18 Not Available [facility] ([facility]) [address] , [place], [address], 10/24/2023 16:42:07 10/24/19 24 10/24/2023 COMP METAB OLIC PANEL creatinine 0.9 mg/dL 0.6-1. 3 Not Available [facility] ([facility]) [address] , [place], [address], 10/24/2023 16:42:07 10/24/19 24 10/24/2023 COMP METAB OLIC PANEL glomerular filtration rate >60 mlper min 60- Not Available [facility] ([facility]) [address] , [place], [address], 10/24/2023 16:42:07 10/24/19 24 10/24/2023 COMP METAB OLIC PANEL total protein 7.2 g/dL 6.4-8. 2 Not Available [facility] ([facility]) [address] , [place], [address], 10/24/2023 16:42:07 10/24/19 24 10/24/2023 COMP METAB OLIC PANEL albumin 3.6 g/dL 3.4-5. 0 Not Available [facility] ([facility]) [address] , [place], [address], 10/24/2023 16:42:07 10/24/19 24 10/24/2023 COMP METAB OLIC PANEL globulin 3.6 Not Available [facility] ([facility]) [address] [place], [address], 10/24/2023 16:42:07 10/24/19 24 10/24/2023 COMP METAB OLIC PANEL alb/glob ratio 1.0 0.7-2 Not Available [facility] ([facility]) [address], [place], [address], 10/24/2023 16:42:07 10/24/19 24 10/24/2023 COMP METAB OLIC PANEL calcium 8.6 mg/dL 8.5-10 .5 Not Available [facility] ([facility]) [address] , [place], [address], 10/24/2023 16:42:07 10/24/19 24 10/24/2023 COMP METAB OLIC PANEL bilirubin total 0.50 mg/dL 0.10-1 .00 Not Available [facility] ([facility]) [address], [place], [address], 10/24/2023 16:42:07 10/24/19 24 10/24/2023 COMP METAB OLIC PANEL AST (SGOT) 23 U/L 0-37 Not Available [facility] ([facility]) [address], [place], [address], 10/24/2023 16:42:07 10/24/19 24 10/24/2023 COMP METAB OLIC PANEL ALT (SGPT) 39 U/L 0-65 Not Available [facility] ([facility]) [address] , [place], [address], 10/24/2023 16:42:07 10/24/19 24 10/24/2023 COMP METAB OLIC PANEL alk phosphatase 80 U/L 46-116 Not Available [facility] ([facility]) [address] , [place], [address], 10/24/2023 16:42:07 10/25/19 24 10/26/2023 SEDIM ENTAT ION RATE- WESTE RGREN sedimentatio n rate-westerg los 5 mm/HR 0-15 Not Available [facility] ([facility]) [address] [facility], [place], [address], 11/03/2023 15:11:19 10/25/19 24 10/27/2023 C-CHANA CTIVE PROTE IN, QUANT C-reactive protein, quant 15 mg/L 0-10 above high normal Not Available [facility] ([facility]) [address], [place], [address], 11/03/2023 15:11:21 04/23/20 24 04/23/2024 C-CHANA CTIVE PROTE IN (CRP) C-reactive protein, quant 1.1 mg/dL 0.05-0 .300 high Not Available [facility] ([facility]) [address] [facility], [place], [address], 04/23/2024 10:36:29 04/23/20 24 04/23/2024 SED RATE sed rate auto 4 0-15 Not Available [facility] ([facility]) [address] [facility], [place], [address], 04/23/2024 10:54:51 11/20/19 24 11/20/2023 [email or web address] s duple x US lwr RT ext [facility] [address] [place] [address] Phone: Fax: Name: GAYATHRI DENNIS Exam Date: 024 : 1979 Age 43 years Gender : M Access ion: [id number] Physic lou: LUCI BRADFORDi ty: [facility] Facili ty HSV: Outpat ient [...] Thank you for referr GAYATHRI Rodríguez to [facility]. Legall y authen ticate d by JADYN DÍAZ 11-19 11:51: 02 CC'ed Logic: Orderi ng Provid er: SPENCER OSUNA Attend ing Provid er: SPENCER OSUNA Referr ing Provid er: SPENCER OSUNA Admitt ing Provid er: SPENCER OSUNA [email or web address] - Physical Therapy [facility] [facility], [place], [address], 11/20/2023 12:58:54 11/20/19 24 11/20/2023 CT, angio gram, chest , w/ contr ast [facility] [address] [place] [address] Phone: Fax: Name: GAYATHRI DENNIS Exam Date: : 1979 Age 43 years Gender : M Access ion: [id number] Physic lou: LUCI BRADFORD Facili ty: [facility] Facili ty HSV: Outpat ient Exam: CTA [...] Admitt ing Provid er: SPENCER OSUNA [email or web address] [facility] - Physical Therapy [address] [place] [address], [place], [address], 11/21/2023 16:18:56 Result Notes Documentation Provider Name and Address Organization Details Recorded Time Ct, Angiogram, Chest, W/ Contrast : [address] [address] Name: WON DENNIS Exam Date: 11/20/2023 : 1980 Age 43 years Gender: M Physician: LUCI BARNES Facility: [facility] Facility HSV: Outpatient Exam: CTA [...] Thank you for referring WON DENNIS to [facility]. Legally authenticated by RENALDO DÍAZ 2023-11-20 12:06:58 CC'ed Logic: Ordering Provider: MOLLY OSUNA Attending Provider: MOLLY OSUNA Referring Provider: MOLLY OSUNA Admitting Provider: MOLLY jaramillo, [place] [facility] [place] [facility] [place] 11/21/2023 16:18:56 Problems Name Problem SNOMED Code Status Onset Date Resolution Date Notes Provider Name and Address Organization Details Recorded Time Methicillin resistant Staphylococ cus aureus infection 088259804 Active 2023 Amy jaramillo [place] [facility] [place] [facility] [place] 4 10:16:00 High risk medication monitoring indicated 1885738122746 9103 Active 2023 Amy jaramillo [place] [facility] [place] [facility] [place] 4 10:16:36 Problem Notes None recorded. Procedures Surgical History Date Name Laterality Status Provider Name and Address Organization Details Recorded Time 03/26/20 [address], [place], [address], [place] [facility] [place] [facility] [place] 03/18/2024 14:56:10 10/24/19 24 [place], [address], YVON Farnsworth [facility] & [place] 10/23/2023 10:53:19 07/25/19 24 Venipuncture completed Sarah SANZ [facility] & [place] 07/25/2023 14:41:20 amputation of lower limb completed Sarah Farnsworth [facility] & [place] 07/25/2023 13:57:05 Imaging Results None recorded. Procedure Notes None recorded. Medical Equipment None Reported. Allergies Allergen ID Allergen Name Allergen Category Reaction Reaction Severity Criticality Documentation Date Start Date Code Code System Note Provider Name and Address Organization Details Recorded Time 777069 cefdinir medicatio n Not available Not available Not available 06/02/2023 05460 RxNorm Isabel jaramillo, [facility] & [place] 10:06:00 Medications Name Sig Start Date Stop [...] active Not Available Not Available Not Available [facility] 10 billion cell-200 mg sprinkle [...] Address Organization Details Last Updated DateTime 4 681872. 53 g 97.8 [degF] 89 /min 95 % 95 % 134/82 mm[Hg] Sarah Vidal [facility] & [place] 4 13:54:07 Date Recorded Body height Body mass index (BMI) Body weight Body temperature Heart rate Oxygen saturation Oxygen saturation in Arterial blood by Pulse oximetry Systolic And Diastolic Provider Name and Address Organization Details Last Updated DateTime 4 182.88 cm 43.3 kg/m2 980792. 97 g 98 [degF] 95 /min 96 % 96 % 137/92 mm[Hg] Sarah SANZ [facility] & [place] 4 14:44:48 Date Recorded Body height Body mass index (BMI) Body weight Body temperature Oxygen saturation Oxygen saturation in Arterial blood by Pulse oximetry Heart rate Systolic And Diastolic Provider Name and Address Organization Details Last Updated DateTime 4 182.88 cm 43.2 kg/m2 657049. 81 g 98.6 [degF] 95 % 95 % 86 /min 134/84 mm[Hg] Amy Aquino [facility] & [place] 4 08:59:12 Date Recorded Body height Body mass index (BMI) Body weight Body temperature Oxygen saturation Oxygen saturation in Arterial blood by Pulse oximetry Heart rate Systolic And Diastolic Provider Name and Address Organization Details Last Updated DateTime 4 182.88 cm 42.9 kg/m2 100572. 19 g 98 [degF] 94 % 94 % 70 /min 140/80 mm[Hg] Kalie Farnsworth [facility] & [place] 4 09:24:00 Date Recorded Heart rate Body height Oxygen saturation Oxygen saturation in Arterial blood by Pulse oximetry Body temperature Body mass index (BMI) Body weight Systolic And Diastolic Provider Name and Address Organization Details Last Updated DateTime 5 85 /min 180.34 cm 94 % 94 % 98.8 [degF] 41.7 kg/m2 112544. 12 g 140/96 mm[Hg] [facility] [place] 5 11:13:21 Social History Question Answer Notes LastModified by Organizat ion Details LastModified Time Tobacco Smoking Status Never Smoker YVON Avitia [facility] & [place] 06/02/2023 10:06:28 Do You Have An Advance Directive? No [email or web address] Information not available 04/28/2025 Are You Blind Or Do You Have Difficulty Seeing? No [email or web address] Information not available 04/28/2025 What Was The Date Of Your Most Recent Tobacco Screening? 04/20/2025 [email or web address] Information not available 04/28/2025 Are You Passively Exposed To Smoke? No [email or web address] Information not available 04/28/2025 Sex: Unknown Functional Status Question Answer Note LastModified by Organizat [employer]ende[employer] Details LastModified Time Do you use any illicit or recreational drugs? No [email or web address] Information not available 07/25/2023 What is your level of alcohol consumption? None [email or web address] Information not available 04/28/2025 Mental Status None recorded. Family History Nothing Reported. Medical History Condition Response Clotting Disorder Y Back Problems Y Hypertension Y Immunizations Vaccine Type Date Status Note Provider Nam e and Address Organization Details Recorded Time Td (adult), 2 Lf tetanus toxoid, preservative free, adsorbed 6 completed SarahYVON Witt [facility] & [place] 07/25/2023 13:54:15 Past Encounters Encounter ID Performer Location Encounter Start Date Encounter Closed Date Diagnosis/Indication Diagnosis SNOMED-CT Code Diagnosis ICD10 Code Diagnosis IMO Codes Diagnosis Note [id number] Randy Torres MD [facility] [address] [place] [address] 06/02/2023 09:54:50 06/02/2023 10:26:43 Osteomyelitis 83644907 M86.9 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 Influenza caused by Influenza A virus 567526112 J09.X2 Resolved.. No further oseltamivi r needed. High risk medication monitoring indicated 6147000121 8648407 Z76.89 Related to the daptomycin . I will check a total CK and continue to follow serial levels of this enzyme to make sure he develops no rhabdomyol ysis. 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 Methicilli n resistant Staphylococcus aureus infection 628382253 A49.02 As above High risk medication monitoring indicated 9345744289 8203707 Z76.89 This is related to the daptomycin . I will continue to monitor his total CK levels closely. 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 Methicilli n resistant Staphylococcus aureus infection 786816929 A49.02 As above Adverse re action to drug 99423164 T50.905A Related to doxycyclin e. This is gastrointe stinal in nature. I will check his liver function testing to make sure he is not developing any hepatotoxi city. I will drop the dose to 100 mg per day. I want him to continue to take it with food. I will re-evaluat e next week. [id number] Randy Torres MD [facility] [address] [facility] [address] [place] [address] 07/12/2023 08:53:12 07/12/2023 09:54:35 Osteomyelitis 97262329 M86.9 Occurring in the right BKA stump [...] month. Methicilli n resistant Staphylococcus aureus infection 780004078 A49.02 As above [id number] Luci Barnes PA-C [facility] [address] [facility] [address] [place] [address] 07/25/2023 13:39:19 07/26/2023 06:33:52 Deep venous thrombosis 073700365 I82.409 Patient has a history of osteomyeli [...] performed when patient was hospitaliz ed at [facility] on May 26, 2023 with normal antithromb in 3 activity. No evidence of factor 5 Leiden mutation. Discussed with patient will order additional labs for further evaluation acquired hypercoagu lable disorder today. Discussed will likely continue on least the prophylact ic dose of Eliquis lifelong due to separate occurrence s of blood clots. Pulmonary embolism 00794 003 I26.99 Patient has a history of [...] s of blood clots. Anticoagulant therapy 18 9179286 Z79.01 Patient continues on Eliquis 5 mg 1 tab p.o. b.i.d.. He is tolerating without trouble. Discussed will likely continue on least the prophylact ic dose of Eliquis lifelong due to separate occurrence s of blood clots. [id number] Luci Barnes PA-C [facility] [address] [place] [address] 10/24/2023 14:29:27 10/24/2023 15:33:34 Deep venous thrombosis 928607911 I82.409 Patient has a history of osteomyeli [...] performed when patient was hospitaliz ed at [facility] on May 26, 2023 with normal [...] Will follow up labs today. Pulmonary embolism 55896 003 I26.99 Patient has a history of [...] follow up labs today. Anticoagulant therapy 18 8624422 Z79.01 Patient continues on Eliquis 5 mg 1 tab p.o. b.i.d.. He is tolerating without trouble. Discussed will continue on least the prophylact ic dose of Eliquis lifelong due to separate occurrence s of blood clots. Will follow up venous duplex of lower extremity and chest CTA to make sure no evidence of embolism before reducing Eliquis dose to 2.5 mg b.i.d. [id number] Randy Torres MD [facility] [address] [place] [address] 10/25/2023 08:49:58 10/25/2023 10:57:40 Osteomyelitis 36903043 M86.9 Occurring in the right BKA stump [...] months. Methicilli n resistant Staphylococcus aureus infection 672419968 A49.02 As above High risk medication monitoring indicated 1356598859 9404923 Z76.89 This is related to the chronic suppressiv e doxycyclin e. I reviewed his liver function testing from yesterday. There is no evidence of any hepatotoxi city. I will continue to monitor this at each visit. I also counseled him about the risk of photosensi tivity with doxycyclin e. [id number] Randy Torres MD [facility] -[address] [place] [address] 04/23/2024 09:14:33 04/23/2024 09:34:49 Osteomyelitis 75703909 M86.9 Occurring in the right BKA stump [...] month. Methicilli n resistant Staphylococcus aureus infection 288304281 A49.02 As above [id number] Randy Torres MD [facility] -[address] [facility] [address] [place] [address] 04/28/2025 11:00:57 04/28/2025 11:33:23 Osteomyelitis 44732362 M86.9 708339 This patient has a recurrentc hronic osteomyeli [...] week. Methicilli n resistant Staphylococcus aureus infection 366011632 B95.62 2234863 As above Health Concerns Section Related Observation LastModified by Organization Detai ls LastModified Time None Recorded Concern Status LastModified by Organization Details LastModified Time None Recorded Advance Directives Directive N: Payers Insurance Date Sequence Insurance Name Policy Number Policy Brantley Covered Member ID Brantley Member ID Guarantor Name 01/27/2024 1 [place] [id number] Won Dennis [id number] Won Dennis 05/01/2025 2 MEDICAID-[facility] HE[facility] CHOICES - FFS/TRADITIONA L Won Dennis [id number] Won Dennis 05/01/2025 1 [place] Won Dennis [id number] Won Dennis 04/28/2025 1 [employer] Won Dennis [id number] Won Dennis 04/30/2025 3 [facility] (MEDICAID REPLACEMENT - HMO) Won Dennis [id number] Won Dennis Notes Date Note Type Note [...] Labs performed when patient was hospitalized at [facility] on May 26, 2023 with normal antithrombin 3 activity. No evidence of factor 5 Leiden mutation. Discussed with patient will order additional labs for further evaluation acquired hypercoagulable disorder today. Discussed will likely continue on least the prophylactic dose of Eliquis lifelong due to separate occurrences of blood clots. Luci Barnes PA-C [address] , [place], [address], [place] [facility] [place] [facility] [place] 07/25/2023 15:32:35 10/24/2023 text/html 43-year-old male presents [...] Labs performed when patient was hospitalized at [facility] on May 26, 2023 with normal [...] today. Luci Barnes PA-C [address], [place], [address], [facility] & [place] 10/24/2023 15:43:34 10/25/2023 text/html ROS as noted [...] well. Randy Torres MD [address], [place], [address], [facility] & [place] 10/25/2023 09:16:07 04/23/2024 text/html ROS as noted [...] well. Randy Torres MD [address], [place], [address], [facility] & [place] 04/23/2024 09:31:22 04/28/2025 text/html ROS as noted [...] issues tolerating the daptomycin. Randy Torres MD [address] [facility], [place], [address], [facility] - [facility] [place] [facility] [place] 04/28/2025 11:42:44
--- OUTSIDE RECORDS SUMMARY | 2025-05-03 07:53 | XMS_ITS | Continuity of Care Document ---
Author Organization [facility] & [facility] Infectious Disease -105 Address [address] [place] [address] Care Team Providers Care Chief Crew Scheduler Name Role Phone SBYIL WILLIAM Primary Care Provider Assessment No assessment [...] Time Methicillin resistant Staphylococ cus aureus infection [id number] Active 2023 Amy jaramillo [place] [facility] & [place] 4 10:16:00 High risk medication monitoring indicated [id number] Active 2023 Amy jaramillo [place] [facility] & [place] 4 10:16:36 Problem Notes None recorded. Procedures Surgical History Date Name Laterality Status Provider Name and Address Organization Details Recorded Time 03/26/20 24 Venipuncture cancelled Luci Ag PA-C [address] , [place], [address], [facility] & [place] 03/18/2024 14:56:10 10/24/19 24 Venipuncture completed Luci Ag PA-C [address] [facility], [place], [address], [facility] & [place] 10/23/2023 10:53:19 07/25/19 24 [facility] [place] 07/25/2023 14:41:20 amputation of lower limb completed Sarah Hendersonriverside [facility] & [place] 07/25/2023 13:57:05 Imaging Results None recorded. Procedure Notes None recorded. Medical Equipment None Reported. Allergies Allergen ID Allergen Name Allergen Category Reaction Reaction Severity Criticality Documentation Date Start Date Code Code System Note Provider Name and Address Organization Details Recorded Time 050322 cefdinir medicatio n Not available Not available Not available 06/02/2023 20958 RxNorm Isabel Kay [facility] & [place] 10:06:00 Medications Name Sig Start Date Stop [...] active Not Available Not Available Not Available [facility] 10 billion cell-200 mg sprinkle capsule [...] % 94 % 98.8 [degF] 41.7 kg/m2 121604. 12 g 140/96 mm[Hg] Amy Miles [facility] 11:13:21 Social History Question Answer Notes LastModified by Organizat ion Details LastModified Time Tobacco Smoking Status Never Smoker Isabel Kay [facility] 06/02/2023 10:06:28 Do You Have An Advance Directive? No [email or web address] Information not available 04/28/2025 Are You Blind Or Do You Have Difficulty Seeing? No [email or web address] Information not available 04/28/2025 What Was The Date Of Your Most Recent Tobacco Screening? 04/20/2025 [email or web address] Information not available 04/28/2025 Are You Passively Exposed To Smoke? No [email or web address] Information not available 04/28/2025 Sex: Unknown Functional Status Question Answer Note LastModified by Organizat ion Details LastModified Time Do you use any illicit or recreational drugs? No [email or web address] Information not available 07/25/2023 What is your level of alcohol consumption? None [email or web address] Information not available 04/28/2025 Mental Status None recorded. Family History Nothing Reported. Medical History Condition Response Clotting Disorder Y Back Problems Y Hypertension Y Immunizations Vaccine Type Date Status Note Provider Nam e and Address Organization Details Recorded Time Td (adult), 2 Lf tetanus toxoid, preservative free, adsorbed 6 completed YVON Brooks - [facility] & [place] 07/25/2023 13:54:15 Past Encounters Encounter ID Performer Location Encounter Start Date Encounter Closed Date Diagnosis/Indication Diagnosis SNOMED-CT Code Diagnosis ICD10 Code Diagnosis IMO Codes Diagnosis Note [id number] Randy Torres MD [facility] Infectiou s Disease -[address] [facility] [address] 04/28/2025 11:00:57 04/28/2025 11:33:23 Osteomyelitis 09757020 M86.9 068018 This patient has a recurrentc hronic osteomyeli [...] week. Methicilli n resistant Staphylococcus aureus infection 898657164 B95.62 [id number] As above Health Concerns Section Related Observation LastModified by Organization Detai ls LastModified Time None Recorded Concern Status LastModified by Organization Details LastModified Time None Recorded Payers Encounter Date Sequence Insurance Name Policy Number Policy Brantley Covered Member ID Brantley Member ID Guarantor Name 04/28/2025 2 MEDICAID-[facility] CHO[facility] - FFS/TRADITIONA L Won Dennis [id number] Won Dennis 04/28/2025 3 [employer] [facility] (MEDICAID REPLACEMENT - HMO) Won Dennis [id number] Wno Dennis Notes Date Note Type Note Provider [...] issues tolerating the daptomycin. Randy Torres MD [address] [facility], [place], [address], [facility] [place] & [place] 04/28/2025 11:42:44
--- OUTSIDE RECORDS SUMMARY | 2025-05-03 07:54 | XMS_ITS | Clinical Summary ---
Author Organization [facility] Address [address] [place] [address] Care Team Providers Care Strong Nitric Operator Name Role Phone Provider, No Known [...] Discontinue d(Stop Taking at Discharge) Lactobacillus- Inulin ([facility]) capsule Take 200 mg by [...] EDT [place]est[place] [facility] [place] [address] [place] [phone] Ulises Hoffman MD Wells, Jeremy B., MD 04/08/2025 2:45 PM EDT - 04/08/2025 4:04 PM EDT Surgery [facility] OR [address] [place] [address] Sushil Dean Jr., MD LEG DEBRIDEMENT AND IRRIGATION 04/07/2025 8:36 PM EDT Anesthesia Event [facility] OR [address] [place] [address] Luci Alonso DO 04/07/2025 6:00 PM EDT - 04/07/2025 6:52 PM EDT Surgery [facility] OR [address] [place] [address] Sushil Dean Jr., MD LEG DEBRIDEMENT, IRRIGATION 04/04/2025 4:10 PM EDT - 04/11/2025 1:58 PM EDT Hospital Encounter [facility] [address] [place] [address] Mario Crowley DO Anderson, Laurie, [...] 0.6 oz pur e alcohol) [facility] Utilities Answer Date Recorded In the past 12 months has [employer], gas, oil, or water [employer] threatened to shut off services in your [...] or training? Not on file Preferred Language Tajik 04/07/2025 Sex and Gender Information Value Date [...] Medical Devices Implanted Type Area Director Of Recruitment And Admissions Device Identifier Shelf Expiration Date Model / Serial / Lot Dev Wnd/Cls Contrl Tiss [employer]ata[employer] Spiral Pls Pds Ct1 0 22cm - [id number] Implanted:Qty: 1 on 04/08/2025 by Sushil Dean Jr., MD at [facility] Implant Right: Leg [employer] 12/07/2025 [id number] / / [id number] Procedures Procedure Name Priority [...] resultswithin the time period is included. Pathologist [facility] WBC 7.87 3.40 - 10.80 10*3/mm3 [...] - 450 10*3/mm3 04/11/2025 4:02 AM EDT [facility] Neutrophil % 59.5 42.7 - 76.0 % 04/11/2025 4:02 AM EDT [facility] Lymphocyte % 26.3 19.6 - 45.3 % 04/11/2025 4:02 AM EDT [facility] Monocyte % 9.3 5.0 - 12.0 % 04/11/2025 4:02 AM [facility] Eosinophil % 4.1 0.3 - 6.2 % 04/11/2025 4:02 AM EDT [facility] Basophil % 0.4 0.0 - 1.5 % 04/11/2025 [facility] Immature Grans % 0.4 [...] Fi nal Result [facility]
[address] [place] [address], * (ABNORMAL) Comprehensive Metabolic Panel (04/11/2025 3:40 [...] AM EDT 04/11/2025 3:56 AM EDT [facility] - 04/11/2025 4:19 AM [...] race as a factor us Rosario Hill DIETETIC TECHNICIAN LAB BLOOD ORDERABLES Final Result [facility]
[address] [id number], * Heparin Anti-Xa (04/10/2025 3:46 AM EDT) Only the most recent of13 resultswithin the time period is included. Heparin Anti-Xa (UFH) 0.35 0.30 - 0.70 IU/ml 04/10/2025 4:23 AM EDT [facility] Blood Venipuncture / Unknown 04/10/2025 3:46 AM EDT 04/10/2025 3:53 AM EDT Larisa Hamilton [facility] LAB BLOOD ORDERABLES Final R esult [facility]
[address] [place] [address], * (ABNORMAL) Basic Metabolic Panel (04/10/2025 3:46 AM EDT) Only the most recent of6 resultswithin the time period is included. [facility] Glucose 125(H) 65 - 99 mg/dL 04/10/2025 4:20 AM EDT [facility] BUN 15.9 6.0 - 20.0 mg/dL 04/10/2025 4:20 AM EDT [facility] Creatinine 0.77 0.76 - 1.27 mg/dL 04/10/2025 4:20 AM EDT [facility] Sodium 137 136 - 145 mmol/L 04/10/2025 4:20 AM EDT [facility] Potassium 3.9 3.5 - 5.2 mmol/L 04/10/2025 4:20 AM EDT [facility] Chloride 102 98 - 107 mmol/L 04/10/2025 4:20 AM EDT [facility] CO2 26.9 22.0 - 29.0 mmol/L 04/10/2025 4:20 AM EDT [facility] Calcium 7.9(L) 8.6 - 10.5 mg/dL 04/10/2025 4:20 AM EDT [facility] BUN/Creatinine Ratio 20.6 7.0 - 25.0 04/10/2025 4:20 AM EDT [facility] Anion Gap 8.1 5.0 - 15.0 mmol/L 04/10/2025 4:20 AM EDT [facility] eGFR 113.2 >60.0 mL/min/1.7 3 04/10/2025 4:20 AM EDT [facility] Blood Venipuncture / Unknown 04/10/2025 3:46 AM EDT 04/10/2025 3:52 AM EDT Narrative [facility] - 04/10/2025 4:20 AM EDT [...] Final Resul t [facility]
[address] [place] [address], * Wound Culture - Swab, Leg, Right [...] City/[facility]/ZIP Co de Phone Number [facility]
[address] [place] [address], [facility]
[address] [place] [address], [place] [phone] * Anaerobic Culture - Swab, Leg, Right [...] GENERAL ORDERABLES Final Result Performing Organization Address [facility] Co de Phone Number [facility]
[address] [place] [address], * Scan Slide (04/08/2025 8:41 AM EDT) [...] City/[facility]/ZIP Co de Phone Number [facility]
[address] [place] [address], [place] [phone] * FL C Arm During Surgery (04/07/2025 [...] [facility]
[address] [place] [address], [facility]
[address] [place] [address], * BH AN ETT AIRWAY (04/07/2025 8:44 [...] [place] 04/07/2025 9:58 AM EDT Workstation ID: [id number] Narrative 04/07/2025 9:58 AM EDT MRI TIBIA [...] [place] 04/07/2025 9:58 AM EDT Workstation ID: [id number] Sushil Dean Jr., MD IMG MRI ORDERABLES Mary Beth l Result * Potassium (04/06/2025 7:16 PM EDT) Potassium 4.0 3.5 - 5.2 mmol/L 04/06/2025 7:53 PM EDT [facility] Blood Venipuncture / Unknown 04/06/2025 7:16 PM EDT 04/06/2025 7:35 PM EDT Jason Álvarez DO LAB BLOOD ORDERABLES Final Resul t Performing Organization Address City/[facility]/ZIP Co de Phone Number [facility]
[address] [place] [address], * CK (04/05/2025 12:15 PM EDT) Creatine Kinase 140 20 - 200 U/L 04/05/2025 1:31 PM EDT [facility] Blood Venipuncture / Unknown 04/05/2025 12:15 PM EDT 04/05/2025 1:03 PM EDT Carlton Mead MD LAB BLOOD ORDERABLES Final R esult Performing Organization Address City/[facility]/ZIP Co de Phone Number [facility]
[address] [place] [address], * (ABNORMAL) aPTT (04/05/2025 3:54 AM EDT) [...] 0.5 U/ml are 60 to 70 seconds. [employer] LAB BLOOD ORDERABLES Final R esult Performing Organization Address City/[facility]/ZIP Co de Phone Number [facility]
[address] [place] [address], * (ABNORMAL) Protime-INR (04/05/2025 12:18 AM EDT) Pathologist [facility] Protime 15.9(H) 12.2 - 15.3 Seconds 04/05/2025 12:53 AM EDT [facility] INR 1.19(H) 0.89 - 1.12 04/05/2025 12:53 AM EDT [facility] Blood Venipuncture / Unknown 04/05/2025 12:18 AM EDT 04/05/2025 12:37 AM EDT [employer] LAB BLOOD ORDERABLES Final R esult Performing Organization Address City/[facility]/ZIP Co de Phone Number [facility]
[address] [place] [address], * POC Creatinine (04/04/2025 2:49 PM EDT) Pathologist [facility] Creatinine 1.10 0.60 - 1.30 mg/dL 04/07/2025 7:14 PM EDT [facility] Comment:Serial Number: [id number] 7Operator: [id number] Venous Blood 04/04/2025 2:49 PM EDT 04/07/2025 7:14 PM EDT Jason Álvarez DO POINT OF CARE TEST ORDERABLES Fi nal Result Performing Organization Address [facility] Co de Phone Number [facility]
[address] [place] [address], * (ABNORMAL) Sedimentation Rate (04/04/2025 2:47 PM EDT) Sed Rate 51(H) 0 - 15 mm/hr 04/04/2025 3:06 PM EDT [facility] Blood Venipuncture / Unknown 04/04/2025 2:47 PM EDT 04/04/2025 2:52 PM EDT Mario Crowley LAB BLOOD ORDERABLES Fin al Result Performing Organization Address [facility] de Phone Number [facility]
[address] [place] [address], * (ABNORMAL) C-reactive Protein (04/04/2025 2:47 PM EDT) C-Reactive Protein 8.57(H) 0.00 - 0.50 mg/dL 04/04/2025 3:26 PM EDT [facility] Blood Venipuncture / Unknown 04/04/2025 2:47 PM EDT 04/04/2025 2:52 PM EDT Mario Crowley DO LAB BLOOD ORDERABLES Fin al Result Performing Organization Address [facility] Co de Phone Number [facility]
[address] [place] [address], from Last 3 Months Additional Health Concerns [...] Of Support Discussed With: Patient Care Teams Strong Nitric Operator Relationship Specialty Start Date End Date Provider, No Known [facility] [place] [address] PCP - General 05/09/23
--- OUTSIDE RECORDS SUMMARY | 2025-05-03 07:55 | XMS_ITS | Encounter Summary ---
Author Organization Healthcare Address [address] [place] [address] Care Team Providers Care Polo Coach Name Role Phone Unavailable Primary Care Provider Unavailabl e Encounter Details Date Type Department Care Team (Late st Contact Info) Description 05/13/2023 Lab Requisition [facility] [address] [place] [address] Sushil Dean MD [address] [facility] [place] [address] Encounter for general adult medical examination without [...] O RDERABLES Final Result Performing Organization Address [facility] Co de Phone Number [facility] [address] [place] [address] * Anaerobic Culture (05/13/2023 9:17 AM EDT) Culture No growth at day 4 05/20/2023 10:35 AM EST [facility] Bone 05/13/2023 9:17 AM EDT 05/13/2023 1:25 PM EDT us Sushil Dean MD LAB MICROBIOLOGY - GENERAL O RDERABLES Final Result Performing Organization Address [facility] de Phone Number [facility] [address] [place] [address] * Bone Culture and Gram Stain (05/13/2023 [...] O RDERABLES Final Result Performing Organization Address [facility] de Phone Number [facility] [address] [place] [address] documented in this encounter Visit Diagnoses Diagnosis Encounter for general adult medical examination without abnormal findings documented in this encounter
--- OUTSIDE RECORDS SUMMARY | 2025-05-03 07:55 | XMS_ITS | Encounter Summary ---
Author Organization [facility] Address [address] [place] [address] Care Team Providers Care Mulling Machine Operator Name Role Phone Provider, No [...] 2:25 PM EDT Cherri Grimm RN * Robertson Suicide Severity Rating Scale (Screener/Recent Self-Report) Question [...] documented as of this encounter Care Teams Mulling Machine Operator Relationship Specialty Start Date End Date Provider, No Known [facility] [place] [address] PCP - General 05/09/23 documented as of this encounter
--- OUTSIDE RECORDS SUMMARY | 2025-05-03 07:55 | XMS_ITS | Encounter Summary ---
Author Organization Healthcare Address [address] [place] [address] Care Team Providers Care Pattern Chain Builder Name Role Phone Unavailable Primary Care Provider Unavailabl e Encounter Details Date Type Department Care Team (Late st Contact Info) Description 05/17/2023 Lab Requisition [facility] [address] [place] [address] Sushil Dean MD [address] [facility] [address] [place] [address] Encounter for general adult medical examination without [...] RDERABLES Final Result Performing Organization Address City/[facility] Co de Phone Number [facility] [address] [place] [address] * Bone Culture and Gram Stain (05/17/2023 [...] RDERABLES Final Result Performing Organization Address [facility] Co de Phone Number [facility] [address] [place] [address] documented in this encounter Visit Diagnoses Diagnosis Encounter for general adult medical examination without abnormal findings documented in this encounter
--- OUTSIDE RECORDS SUMMARY | 2025-05-03 07:55 | XMS_ITS | Encounter Summary ---
Author Organization Healthcare Address [address] [place] [address] Care Team Providers Care Postal Clerk Name Role Phone Unavailable Primary Care Provider Unavailabl e Encounter Details Date Type Department Care Team (Late st Contact Info) Description 10/01/2022 Lab Requisition [facility] [address] [place] [address] Sushil Dean MD [address] [facility]. [address] [place] [address] Encounter for general adult medical examination without [...] has been identified using the FDA Approved Formarumyper CA System The organism value for this [...] 10/04/2022 2:17 PM EDT Refer to culture [id number] FOR SUSCEPTIBILITIES ON NEELIMA ALBICANS us Sushil Dean MD LAB MICROBIOLOGY - GENERAL O RDERABLES Final Result [facility] [address] [place] [address] documented in this encounter Visit Diagnoses Diagnosis Encounter for general adult medical examination without abnormal findings documented in this encounter
--- OUTSIDE RECORDS SUMMARY | 2025-05-03 07:55 | XMS_ITS | Encounter Summary ---
Author Organization [facility] Address [address] [place] [address] Care Team Providers Care Roll Finisher Name Role Phone Unavailable Primary Care Provider Unavailabl e Encounter Details Date Type Department Care Team (Late st Contact Info) Description 10/03/2022 Lab Requisition [facility] [address] [place] [address] Dalila Cox MD [address] [place], [place] [phone] Encounter for general adult medical examination without [...] Culture Neelima albicans(A) 10/05/2022 11:58 AM EDT [facility] Comment: This result was determined by MALDI tof Mass spectrometry. This assay was developed and its performance characteristics determined by [facility] as appropriate for clinical purposes. [...] Edited Result - Final [facility] [address] [place] [address] documented in this encounter Visit Diagnoses Diagnosis Encounter for general adult medical examination without abnormal findings documented in this encounter
--- OUTSIDE RECORDS SUMMARY | 2025-05-03 07:55 | XMS_ITS | Clinical Summary ---
Author Organization Healthcare Address [address] [place] [address] Care Team Providers Care Art Librarian Name Role Phone Unavailable Primary Care Provider [...]
--- OUTSIDE RECORDS SUMMARY | 2025-05-03 07:55 | XMS_ITS | Encounter Summary ---
Author Organization Healthcare Address [address] [place] [address] Care Team Providers Care Exercise Manager Name Role Phone Unavailable Primary Care Provider Unavailabl e Encounter Details Date Type Department Care Team (Late st Contact Info) Description 10/19/2022 Lab Requisition [facility] [address] [place] [address] Sushil Dean MD [address] [place] [address] Encounter for general adult medical examination without [...] by MALDI tof mass spectrometry using the BeTheBeast database and is for research use only. The organism value for this result has been updated. These results have been appended to the previously preliminary verified report. Bone Specimen from bone / Unknown 10/19/2022 5:17 PM EDT 10/19/2022 9:49 PM EDT Sushil Dean MD LAB MICROBIOLOGY - GENERAL O RDERABLES Final Result Performing Organization Address [facility] de Phone Number [facility] [address] [place] [address] * Bone Culture and Gram Stain (10/19/2022 5:17 PM EDT) Culture No growth at day 4 2022 8:14 AM EDT [facility] Gram Stain Result Few Polymorphonuclear leukocytes 10/23/2022 8:14 AM EDT [facility] Gram Stain Result No organisms seen 10/23/2022 8:14 AM EDT [facility] Bone Specimen from bone / Unknown 10/19/2022 5:17 PM EDT 10/19/2022 9:49 PM EDT Sushil Dean MD LAB MICROBIOLOGY - GENERAL O RDERAADDI Final Result Performing Organization Address [facility] Phone Number [facility] [address] [place] [address] documented in this encounter Visit Diagnoses Diagnosis Encounter for general adult medical examination without abnormal findings documented in this encounter
--- OUTSIDE RECORDS SUMMARY | 2025-05-03 07:55 | XMS_ITS | Encounter Summary ---
Author Organization Healthcare Address [address] [place] [address] Care Team Providers Care Poultry And Fish Butcher Name Role Phone Unavailable Primary Care Provider Unavailabl e Encounter Details Date Type Department Care Team (Late st Contact Info) Description 07/20/2022 Lab Requisition [facility] [address] [place] [address] Sushil Dean MD [address] [place] [address] Encounter for general adult medical examination without [...]
--- OUTSIDE RECORDS SUMMARY | 2025-05-03 07:55 | XMS_ITS | Encounter Summary ---
Author Organization Healthcare Address [address] [place] [address] Care Team Providers Care Avaya Engineer Name Role Phone Unavailable Primary Care Provider Unavailabl e Encounter Details Date Type Department Care Team (Late st Contact Info) Description 08/12/2022 Lab Requisition [facility] [address] [place] [address] Sushil Dean MD [address] [place] [address] Encounter for general adult medical examination without [...] has been identified using the FDA Approved Darby Smarter CA System The organism value for this [...] O ERIC Final Result Performing Organization Address City/[facility] de Phone Number [facility]ARE [facility] [address] [place] [address] * Bone Culture and Gram Stain (08/12/2022 [...] Final Result Performing Organization Address City/[facility] de Phone Number [facility] [address] [place] [address] documented in this encounter Visit Diagnoses Diagnosis Encounter for general adult medical examination without abnormal findings documented in this encounter
--- OUTSIDE RECORDS SUMMARY | 2025-05-03 07:55 | XMS_ITS | Encounter Summary ---
Author Organization Healthcare Address [address] [place] [address] Care Team Providers Care Clinical Evaluator Name Role Phone Unavailable Primary Care Provider Unavailabl e Encounter Details Date Type Department Care Team (Late st Contact Info) Description 07/20/2022 Lab Requisition [facility] [address] [place] [address] Sushil Dean MD [address] [place] [address] Encounter for general adult medical examination without [...] at day 4 07/27/2022 11:32 AM EST [facility] Bone Specimen from bone / Unknown 07/20/2022 1:36 PM EST 07/20/2022 5:52 PM EST us Sushil Dean MD LAB MICROBIOLOGY - GENERAL O RDERABLES Final Result Performing Organization Address City/[facility] Co de Phone Number HEALTHCARE LAB [address] [place] [address] * Bone Culture and Gram Stain (07/20/2022 1:36 PM EST) Culture No growth at day 4 2022 9:16 AM EST [facility] Gram Stain Result Rare Polymorphonuclear leukocytes 07/24/2022 9:16 AM EST [facility] Gram Stain Result No organisms seen 07/24/2022 9:16 AM EST [facility] Bone Specimen from bone / Unknown 07/20/2022 1:36 PM EST 07/20/2022 5:52 PM EST us Sushil Dean MD LAB MICROBIOLOGY - GENERAL O RDERABLES Final Result Performing Organization Address City/[facility] Co de Phone Number HEALTHCARE LAB [address] [place] [address] documented in this encounter Visit Diagnoses Diagnosis Encounter for general adult medical examination without abnormal findings documented in this encounter
[2025-05-03 08:40] VITALS: BP 118/90; PULSE 80; RESP 18; TEMP 36.7; O2SAT 99
[2025-05-03] MEDS: DAPTOmycin 1,000 MG in 0.9 % SODIUM CHLORIDE 50 ML 100 MG IV (08:49)
[2025-05-03 09:30] VITALS: BP 112/83; PULSE 76; RESP 18; TEMP 36.7; O2SAT 98
== END 2025-05-03 09:30 | disposition home or self-care (01) ==
LOC: INF 07:50
PROVIDERS: PCP Nurse Practitioner Family; Visit Provider Internal Medicine Infectious Disease
DX: L03.115 Cellulitis of right lower limb (principal); L02.415 Cutaneous abscess of right lower limb; Z89.511 Acquired absence of right leg below knee; D68.2 Hereditary deficiency of other clotting factors; I10 Essential (primary) hypertension; E78.5 Hyperlipidemia, unspecified; F39 Unspecified mood [affective] disorder
CPT/HCPCS: 96365; 99212; G0463; J0878

== ENCOUNTER 2025-05-04 09:30 | Outpatient (CLI) | payer MEDICARE, SELFPAY ==
--- OUTSIDE RECORDS SUMMARY | 2023-12-12 05:00 | XMS_ITS ---
Author Organization [place] Address [address] [facility] 36 [facility] [address] [place] [id number] Care Team Providers Care Nurse Practitioner Per Diem Name Role Phone Zeeshan Salazar Primary Care Provider Macario Burkett [phone] REASON FOR VISIT 6 Month Check Up Encounters Encounter Location Date Provider Diagnosis [place] [address] [facility] [address] [place] [id number] 12/12/2023 Macario Burkett Plan Of Treatment No Information Progress Notes * Won MEDRANO ZeeshanDOB: [birth year] (44 yo M)Acc No.[id number]:12/12/2023 Progress Notes Patient: Won SPANN Provider: Colleen Burkett M.D. :1980 A ge:43 Y S ex:Male Date:12/12/2023 Address:[address] [place] [address] [id number] Pcp:Zeeshan Salazar Subjective: * Chief Complaints: * 1 . 6 Month Check Up. * Medical History: Objective: * Vitals: Assessment: Plan: * Treatment: * Images: Billing Information: * Visit Code: * Procedure Codes: * Electronic signature of Micaela Burkett MD on 05/04/2025 at 09:34 AM EDT Sign off status: Pending * Provider: Colleen Burkett M.D. Date: 12/12/2023 Generated for Nany jorgensen/Elaine/Pro on: 1 09:34 AM EDT
--- OUTSIDE RECORDS SUMMARY | 2025-04-04 16:10 | XMS_ITS | Encounter Summary ---
Author Organization [facility] Address [address] [place] [address] Care Team Providers Care Change Room Attendant Name Role Phone Provider, No Known Primary Care Provider Unavail able Reason for Visit * Reason Comments Leg Swelling * Auth/Cert Specialty Diagnoses / Procedures Referred By Contlevy t Referred To Contact Diagnoses Right BKA infection Referral ID Status Reason Start Date Expiration Date Visits Re quested Visits Authorized [id number] 1 1 Encounter Details Date Type Department Care Team (Late st Contact Info) Description 04/04/2025 4:10 PM EDT - 04/11/2025 1:58 PM EDT Hospital Encounter [address] [place] [address] Mario Crowley, [address] [place] [address] Leonora Shepherd MD [address] [address] Jason Álvarez DO [address] [address] Jadyn Richardson DO [address] [address] Cellulitis of right lower extremity (Primary Dx); Below-knee amputation of right lower extremity, initial encounter; Right BKA infection Discharge Disposition: Home or Self Care Social History Tobacco Use Types Packs/Day Years Used Date Smoking Tobacco: Never Smokeless Tobacco: Never Tobacco Cessation:Counseling Given: Not Answered Alcohol Use Standard Drinks/Week Comments Not Currently 0 (1 standard drink = 0.6 oz pur e alcohol) [facility] Utilities Answer Date Recorded In the past 12 months has th e [employer], gas, oil, or water company threatened to [...] or training? Not on file Preferred Language Nauruan 04/07/2025 Sex and Gender Information Value Date [...] 2:25 PM EDT Cherri Grimm RN * [place] Suicide Severity Rating Scale (Screener/Recent Self-Report) Question [...] from the original note were not included. [facility] DISCHARGE SUMMARY Patient Name: Won [...] Date/Time Wound Culture - Swab, Leg, Right [[id number]] (Abnormal) (Susceptibility) Collected: 04/07/252106 Lab Status: Final [...] Units Date/Time FL C Arm During Surgery [[id number]] Resulted: 04/07/252137 Updated: 04/07/252137 Narrative: This procedure was auto-finalized with no dictation required. MRI Tibia Fibula Right With & Without Contrast [[id number]] Collected: 04/07/25 0938 Updated: 04/07/25 1001 Narrative: [...] Buenrostro 04/07/2025 9:58 AM EDT Workstation ID: [id number] MRI Tibia Fibula Right With & Without Contrast [[id number]] Collected: 04/04/252256 Updated: 04/04/252302 Narrative: MRI TIBIA [...] represent a small area of phlegmonous change (ieprrn23 image 10) measuring approximately 1.6 cm which [...] MD 04/04/2025 11:00 PM EDT Workstation ID: [id number] Pending Labs Order Current Status Fungus Culture [...] FLOMAX 1 capsule, Nightly Stop These Medications [facility] Digestive [facility] capsule doxycycline 100 MG tablet Commonly [...] Male) Date of 1980 Social Security Number [id number] [place] [address] [place] Unknown Marital Status Unknown Admission Date 04/04/2025 Admission Type Emergency Admitting Provider Jadyn Richardson DO Attending Provider Jadyn Richardson DO Department, Room/Bed [address], S565/1 Discharge Date Discharge Disposition Discharge [...] Group [place] [id number] Payor Plan Address Payor Plan Phone Number Payor Plan Fax Number Effective Dates [employer] [address] [address] 08/10/2023 - None Entered [place] [address] Subscriber Name Subscriber Date Member ID WON DENNIS 1980 [id number] Emergency Contacts Silo Filler (Rel.) Home Phone Work Phone Mobile Phone Avril Dennis (Spouse) -- -- [phone] LewRobert (Relative) -- -- [phone] [facility] [address] Patient: ROOM: [facility] Won Dennis [address] [facility] [place] [address] : 1980 SSN: [id number] Sex: M PCP: Provider, No Known Emergency Contact Information Name Relation Home Work Mobile Avril Dennis Spouse [phone] Other Contacts Name Relation Home Work Mobile Robert Hackett Relative [phone] INSURANCE PAYOR [employer]AN [employer] # SUBSCRIBER ID Primary: Secondary: MEDICARE [employer]ICA[place] [id number] Admitting Diagnosis: 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] Order Date: Apr 09, 2025 Case Management Core Layer Machine Operator Consult (Order ID: [id number]) Diagnosis: Priority: Routine Expected Date: Expiration Date: Interval: Once Count: Comments: Outpatient orders: 1. Outpatient intravenous antibiotic therapy: Daptomycin 800 mg IV daily to be supplied by [facility] 2. Home health to perform [...] INFECTIOUS DISEASE Progress Note Won Dennis 1980 [id number] Date of Consult: 04/10/2025 Admission Date: 04/04/2025 [...] him to seek treatment at [facility]. He is known to Dr. Dean. He [...] wound 05/09/25. HDS, on Heparin gtt. Currently [facility] has been asked to manage the [...] Jr., MD, 20 mg at 04/09/25906 heparin 29885 units/250 mL (100 units/mL) in 0.45 % [...] Units Date/Time FL C Arm During Surgery [[id number]] Resulted: 04/07/252137 Updated: 04/07/252137 Narrative: This procedure was auto-finalized with no dictation required. MRI Tibia Fibula Right With & Without Contrast [[id number]] Collected: 04/07/25 0938 Updated: 04/07/25 1001 Narrative: [...] Chitra 04/07/2025 9:58 AM EDT Workstation ID: [id number] Impression: Recurrent Right BKA stump abscess/cellulitis- this [...] discussed his disposition with the pharmacist at [facility] today. I will sign off Outpatient orders: 1. Outpatient intravenous antibiotic therapy: Daptomycin 800 mg IV daily to be supplied by [facility] 2. Home health to perform [...] Time: 04/10/251323 Signed Expand All Collapse All [facility] PROGRESS NOTE Patient Name: Won [...] Date/Time Wound Culture - Swab, Leg, Right [[id number]] (Abnormal) (Susceptibility) Collected: 04/07/252106 Lab Status: Final [...] Row Name 04/06/25 1143 Sit-Stand Transfer Sit-Stand [place] (Transfers) modified independence -LM Comment, (Sit-Stand Transfer) Pt stood from recliner. Not holding onto walker, pt able to pull his pants up while balancing on his one leg. -LM Row Name 04/06/25 1143 Gait/Stairs (Locomotion) [place] Level (Gait) modified independence -LM Distance in [...] Nurse Physical Therapy Education Title: PT OT STUD SHEEP FARMER Therapies (Done) Topic: Physical Therapy (Done) Point: [...] Description Service Date Service Provider Modifiers Qty [id number] PT EVAL LOW COMPLEXITY 3 04/06/2025 Susan [...] mg Daily 04/05/2025 -- Route: Oral heparin 42400 units/250 mL (100 units/mL) in 0.45 % [...] -- Admin Instructions: Open Order & Select [facility] Electrolyte Replacement Protocol Algorithm to [...] 22 [facility] [address], [address] [facility], [address] Please schedule at [phone] VONDA Garcia 04/11/25 08:32 EDT Cosigned by Sushil Dean Jr., MD at 04/19/2025 10:33 AM EDT Associated attestation - Sushil Dean Jr., MD - 04/19/2025 10:33 AM EDT I have reviewed this documentation and agree. * Rosario Hill APRN - 04/10/2025 1:24 PM EDT Images from the original note were not included. [facility] PROGRESS NOTE Patient Name: Won [...] Date/Time Wound Culture - Swab, Leg, Right [[id number]] (Abnormal) (Susceptibility) Collected: 04/07/252106 Lab Status: Final [...] mg Daily 04/05/2025 -- Route: Oral heparin 07678 units/250 mL (100 units/mL) in 0.45 % [...] -- Admin Instructions: Open Order & Select [facility] Electrolyte Replacement Protocol Algorithm to [...] -- Admin Instructions: Open Order & Select [facility] Electrolyte Replacement Protocol Algorithm to [...] -- Admin Instructions: Open Order & Select [facility] Electrolyte Replacement Protocol Algorithm to [...] 22 [facility] [address], [address] [facility], [address] Please schedule at [phone] VONDA Garcia 04/10/25 09:01 EDT Cosigned by Sushil Dean Jr., MD at 04/19/2025 10:33 AM EDT Associated attestation - Sushil Dean Jr., MD - 04/19/2025 10:33 AM EDT I have reviewed this documentation and agree. * Carlton Mead MD - 04/10/2025 7:38 AM EDT Images from the original note were not included. INFECTIOUS DISEASE Progress Note Won Dennis 1980 [id number] Date of Consult: 04/10/2025 Admission Date: 04/04/2025 [...] him to seek treatment at [facility]. He is known to Dr. Dean. He [...] wound 05/09/25. HDS, on Heparin gtt. Currently [facility] has been asked to manage the [...] Jr., MD, 20 mg at 04/09/25906 heparin 61735 units/250 mL (100 units/mL) in 0.45 % NaCl infusion, 18 Units/kg/hr, Intravenous, Titrated, Una Prela, PharmD, Last Rate: 24.1 mL/hr at 04/10/25312, [...] vancomycin 2750 mg/500 mL 0.9% NS IVPB ([facility]) Ordering Provider: Mario Crowley, DO [...] Units Date/Time FL C Arm During Surgery [[id number]] Resulted: 04/07/252137 Updated: 04/07/252137 Narrative: This procedure was auto-finalized with no dictation required. MRI Tibia Fibula Right With & Without Contrast [[id number]] Collected: 04/07/25 0938 Updated: 04/07/25 1001 Narrative: [...] Buenrostro 04/07/2025 9:58 AM EDT Workstation ID: [id number] Impression: Recurrent Right BKA stump abscess/cellulitis- this [...] discussed his disposition with the pharmacist at [facility] today. I will sign off Outpatient orders: 1. Outpatient intravenous antibiotic therapy: Daptomycin 800 mg IV daily to be supplied by [facility] 2. Home health to perform [...] from the original note were not included. [facility] PROGRESS NOTE Patient Name: Won [...] Date/Time Wound Culture - Swab, Leg, Right [[id number]] (Abnormal) Collected: 04/07/252106 Lab Status: Preliminary result [...] mg Daily 04/05/2025 -- Route: Oral heparin 67143 units/250 mL (100 units/mL) in 0.45 % [...] -- Admin Instructions: Open Order & [facility] Electrolyte Replacement Protocol Algorithm to [...] -- Admin Instructions: Open Order & [facility] Electrolyte Replacement Protocol Algorithm to [...] -- Admin Instructions: Open Order & [facility] Electrolyte Replacement Protocol Algorithm to [...] radiographs [facility] [address], [address] [facility], [address] Please schedule at [phone] VONDA Garcia 04/09/25 09:18 EDT Cosigned by Sushil Dean Jr., MD at 04/19/2025 10:33 AM EDT Associated attestation - Sushil Dean Jr., MD - 04/19/2025 10:33 AM EDT I have reviewed this documentation and agree. * Carlton Mead MD - 04/09/2025 8:25 AM EDT Images from the original note were not included. INFECTIOUS DISEASE Progress Note Won Dennis 1980 [id number] Date of Consult: 04/09/2025 Admission Date: 04/04/2025 [...] him to seek treatment at [facility]. He is known to Dr. Dean. He [...] wound 05/09/25. HDS, on Heparin gtt. Currently [facility] has been asked to manage the [...] IRRIGATION; Surgeon: Sushil Dean Jr., MD; Location: [facility] OR; Service: Orthopedics; Laterality: Right; PLACEMENT OF WOUND VAC Right 04/07/2025 Procedure: WOUND VACUUM ASSISTED CLOSURE; Surgeon: Sushil Dean Jr., MD; Location: [facility] OR; Service: Orthopedics; Laterality: Right; History [...] MD, 20 mg at 04/08/25 0800 heparin 82796 units/250 mL (100 units/mL) in 0.45 % [...] Units Date/Time FL C Arm During Surgery [[id number]] Resulted: 04/07/252137 Updated: 04/07/252137 Narrative: This procedure was auto-finalized with no dictation required. MRI Tibia Fibula Right With & Without Contrast [[id number]] Collected: 04/07/2538 Updated: 04/07/25 1001 Narrative: MRI [...] Buenrostro 04/07/2025 9:58 AM EDT Workstation ID: [id number] Impression: Recurrent Right BKA stump abscess/cellulitis- this [...] mg IV daily to be supplied by [facility] 2. Home health to perform [...] from the original note were not included. [facility] PROGRESS NOTE Patient Name: Won [...] Buenrostro 04/07/2025 9:58 AM EDT Workstation ID: [id number] I have personally reviewed the therapy plans: [...] -- Admin Instructions: Open Order & Select [facility] Electrolyte Replacement Protocol Algorithm to [...] mg Daily 04/05/2025 -- Route: Oral heparin 63182 units/250 mL (100 units/mL) in 0.45 % [...] -- Admin Instructions: Open Order & Select [facility] Electrolyte Replacement Protocol Algorithm to [...] -- Admin Instructions: Open Order & Select [facility] Electrolyte Replacement Protocol Algorithm to [...] -- Admin Instructions: Open Order & Select [facility] Electrolyte Replacement Protocol Algorithm to [...] INFECTIOUS DISEASE Progress Note Won Dennis 1980 [id number] Date of Consult: 04/08/2025 Admission Date: 04/04/2025 [...] him to seek treatment at [facility]. He is known to Dr. Dean. He [...] wound 05/09/25. HDS, on Heparin gtt. Currently [facility] has been asked to manage the [...] IRRIGATION; Surgeon: Sushil Dean Jr., MD; Location: [facility] OR; Service: Orthopedics; Laterality: Right; PLACEMENT OF WOUND VAC Right 04/07/2025 Procedure: WOUND VACUUM ASSISTED CLOSURE; Surgeon: Sushil Dean Jr., MD; Location: [facility] OR; Service: Orthopedics; Laterality: Right; History [...] Jr., MD, 20 mg at 04/07/25950 heparin 14007 units/250 mL (100 units/mL) in 0.45 % [...] Units Date/Time FL C Arm During Surgery [[id number]] Resulted: 04/07/252137 Updated: 04/07/252137 Narrative: This procedure was auto-finalized with no dictation required. MRI Tibia Fibula Right With & Without Contrast [[id number]] Collected: 04/07/2538 Updated: 04/07/25 1001 Narrative: MRI [...] Buenrostro 04/07/2025 9:58 AM EDT Workstation ID: [id number] Impression: 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 (Treated by ID in [place] Dr. Harris). Dr. Torres treated him with [...] Continue ceftriaxone 3. Surgical intervention per Dr. Dena This visit included the following complex service elements: Complex medical decision-making associated with antimicrobial prescribing. In-depth chart review with high level synthesis for complex diagnoses. Managed infection treatment protocol associated with transitions of care for this complex patient. Carlton Mead MD 04/08/2025 07:37 EDT * Jason Álvarez, DO - 04/07/2025 2:11 PM EDT Images from the original note were not included. [facility] PROGRESS NOTE Patient Name: Won [...] Buenrostro 04/07/2025 9:58 AM EDT Workstation ID: [id number] I have personally reviewed the therapy plans: [...] INFECTIOUS DISEASE Progress Note Won Dennis 1980 [id number] Date of Consult: 04/07/2025 Admission Date: 04/04/2025 [...] him to seek treatment at [facility]. He is known to Dr. Dean. He [...] wound 05/09/25. HDS, on Heparin gtt. Currently [facility] has been asked to manage the [...] Application, 1 Application, Topical, Q12H, Ayah Valentin, TEACHER EMOTIONALLY IMPAIRED, 1 Application at 04/06/252101 DAPTOmycin (CUBICIN) 800 [...] Shepherd MD, 20 mg at 04/06/25899 heparin 37055 units/250 mL (100 units/mL) in 0.45 % [...] With & Without Contrast - In process [[id number]] Resulted: 04/07/25828 Updated: 04/07/25828 This result has not been signed. Information might be incomplete. 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 (Treated by ID in [place] Dr. Harris). Dr. Torres treated him with [...] mg Daily 04/05/2025 -- Route: Oral heparin 24758 units/250 mL (100 units/mL) in 0.45 % [...] -- Admin Instructions: Open Order & [facility] Electrolyte Replacement Protocol Algorithm to [...] -- Admin Instructions: Open Order & [facility] Electrolyte Replacement Protocol Algorithm to [...] from the original note were not included. [facility] PROGRESS NOTE Patient Name: Won [...] MD 04/04/2025 11:00 PM EDT Workstation ID: [id number] I have personally reviewed the therapy plans: [...] mg Daily 04/05/2025 -- Route: Oral heparin 45298 units/250 mL (100 units/mL) in 0.45 % [...] -- Admin Instructions: Open Order & [facility] Electrolyte Replacement Protocol Algorithm to [...] INFECTIOUS DISEASE follow up. Won Dennis 1980 [id number] Date of Consult: 04/06/2025 Admission Date: 04/04/2025 [...] him to seek treatment at [facility]. He is known to Dr. Dean. He [...] wound 05/09/25. HDS, on Heparin gtt. Currently [facility] has been asked to manage the [...] Application, 1 Application, Topical, Q12H, Ayah Valentin, TEACHER EMOTIONALLY IMPAIRED, 1 Application at 04/06/25 0859 DAPTOmycin (CUBICIN) [...] MD, 20 mg at 04/06/25 0900 heparin 85294 units/250 mL (100 units/mL) in 0.45 % [...] Tibia Fibula Right With & Without Contrast [[id number]] Collected: 04/04/252256 Updated: 04/04/252302 Narrative: MRI TIBIA [...] represent a small area of phlegmonous change (qeyent08 image 10) measuring approximately 1.6 cm which [...] MD 04/04/2025 11:00 PM EDT Workstation ID: [id number] Impression: 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 (Treated by ID in [place] Dr. Harris). Dr. Torres treated him with [...] from the original note were not included. [facility] PROGRESS NOTE Patient Name: Won [...] MD 04/04/2025 11:00 PM EDT Workstation ID: [id number] I have personally reviewed the therapy plans: [...] from the original note were not included. [facility] HISTORY AND PHYSICAL Patient Name: [...] MD 04/04/2025 11:00 PM EDT Workstation ID: [id number] Assessment & Plan Assessment & Plan Won [...] 4FR PICC placed by Rhoda Bonner RN [facility], tip verified by 3CG see LDA. * Sushil Dean Jr., MD - 04/05/2025 8:07 AM EDTAssociated Order(s): IP CONSULT TO ORTHOPEDIC SURGERY [facility], [facility] [address] [place] [address] Orthopedic Consult Patient: Won Dennis Date of Admission: 04/04/2025 4:10 PM Date of : 1980 Attending Physician: Jason Álvarez DO Consulting Physician: Sushil Dean Jr, MD Chief Complaint: 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 male admitted to [facility] with 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]. [...] was evaluated in the emergency department in [place], was discharged with instructions for follow-up. He [...] tablet by mouth Daily. 04/03/2025 Morning Lactobacillus-Inulin ([facility] [employer]) capsule Take 200 mg by mouth Daily. [...] MD 04/04/2025 11:00 PM EDT Workstation ID: [id number] Assessment: Right BKA infection 44-year-old male with [...] DISEASE CONSULT/INITIAL HOSPITAL VISIT Won Dennis 1980 [id number] Date of Consult: 04/05/2025 Admission Date: 04/04/2025 [...] him to seek treatment at [facility]. He is known to Dr. Dean. He [...] wound 05/09/25. HDS, on Heparin gtt. 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 (Treated by ID in [place] Dr. Harris). Dr. Torres treated him with [...] Jr., MD - 04/08/2025 3:51 PM EDT [facility] OPERATIVE REPORT PATIENT NAME: Won Dennis DATE OF : 1980 PREOP DIAGNOSIS: Right Right below-knee amputation infection POSTOP DIAGNOSIS: Same. PROCEDURE: Right Right 84659: Secondary closure below-knee amputation SURGEON: Sushil Dean MD OPERATIVE TEAM: Collections Analyst: Susi Grullon RN Scrub Person: Mary Paredes Scrub Person Extra: Hortencia Toribio Other: Katt Gotti RN; Charis Neville RN ANESTHETIST: Anesthesiologist: Ulises Hoffman MD PROGRAM EVALUATION CONSULTANT: Stan Casillas CRNA Student Nurse Public Address Technician: Karol Albert SRNA ANESTHESIA: Choice ESTIMATED BLOOD [...] CULTURE (Canceled) Sushil Dean Jr., MD 04/08/25 4188 Description: RIGHT LEG DEEP WOUND FOR CULTURE [...] [facility] [address] [place] [address] OPERATIVE REPORT PATIENT NAME: Won Dennis DATE OF : 1980 PREOP DIAGNOSIS: Right Right below knee amputation stump infection POSTOP DIAGNOSIS: Same. PROCEDURE: Right Right 32870: Incision and drainage of surgical site infection 04675: Debridement of skin, subcutaneous tissue, muscle 08881: Wound vacuum-assisted closure SURGEON: Sushil Dean MD OPERATIVE TEAM: Collections Analyst: Anum Sanchez RN Scrub Person: Hortencia Toribio; Gerald Ivey UX ENGINEER: Anesthesiologist: Luci Alonso DO ANESTHESIA: General ESTIMATED [...] of the area. seen at [facility] yesterday for CT and US, here for [...] this chart in the absence of a finisher operator. No orders to display RADIOLOGY: [x] [...] 04/11/2025 1:30 PM EDT Continued Stay Note [place] Patient Name: Won Dennis Today's Date: 04/11/2025 Admit Date: 04/04/2025 Plan: Home with outpatient infusion. Discharge Plan Row Name 04/11/25 1155 Plan Plan Home with outpatient infusion. Final Discharge Disposition Code 01 - home or self-care Final Note Patient discharging today. He is discharging home with outpatient infusion at [facility]. He has an appointment with [facility] at 8:00 am tomorrow. They will do PICC line dressing changes. DEBRA has spoke with Dena at [facility] today multiple times to get [...] to get IV ABX at home with [facility]; however, Medicaid lapsed on 04/08. DEBRA was unaware until this morning that Medicaid has lapsed. Patient explained that he has Medicare A and B. CM spoke with KELLEE and given themhis Medicare number [id number], she sent it to Admission. DEBRA spoke with Kerri, with [facility], and explained that he had Medicare A and B. However, it will not cover home infusion. It will be $64.00 a day out of packet. Patients can go to the Infusion center at [facility], and it will cover the cost as an outpatient. He will need to go there every day for infusion. They will be able to do the patients' PICC line dressing changes and lab work. CM called Dena [facility] Outpatient infusion center they can accept patient and start him. He is known for their facility. The Facility will need to run it through his insurance first. CM faxed the orders over to [facility] at [phone]. CM will follow up with them tomorrow at [facility] to make sure they received [...] with patient at bedside today. [facility]. Patient getting PICC line [...] note were not included. 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 Patient lives with and his 5 kids in [facility]. 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 He has walker, cane, shower chair, and crutches. He requested a wheelchair for home. CM will order wheelchair through [id number]. He is not current with home health services. PCP is Dr. Jordan. Insurance is [facility] Medicaid [place]. Patient discharge plan is home with priavte transport. CM will follow for any discharge needs. Final Discharge Disposition Code 01 - home or self-care Continued Care and Services - Admitted Since 04/04/2025 No active coordination exists. Demographic Summary Row Name 04/07/25 1143 General Information Arrived From hospital Preferred Language Nauruan Functional Status Row Name 04/07/25 1143 Functional [...] Fi nal Result [facility]
[address] [place] [address], * (ABNORMAL) Comprehensive Metabolic Panel (04/11/2025 3:40 [...] 3:40 AM EDT 04/11/2025 3:56 AM EDT [facility] - 04/11/2025 4:19 AM [...] ORDERABLES Final Result [facility]
[address] [place] [address], * (ABNORMAL) CBC Auto Differential (04/10/2025 3:46 AM EDT) [facility] WBC 9.60 3.40 - 10.80 10*3/mm3 04/10/2025 3:56 AM EDT [facility] RBC 4.67 4.14 - 5.80 10*6/mm3 04/10/2025 3:[facility] Hemoglobin 12.9(L) 13.0 - 17.7 g/dL 04/10/2025 3:56 AM EDT [facility] Hematocrit 40.1 37.5 - 51.0 % 04/10/2025 3:56 [facility] MCV 85.9 79.0 - 97.0 fL 04/10/2025 3:56 [facility] MCH 27.6 26.6 - 33.0 pg 04/10/2025 3:56 AM [facility] MCHC 32.2 31.5 - 35.7 g/dL 04/10/2025 3:56 AM [facility] RDW 12.9 12.3 - 15.4 [...] 42.7 - 76.0 % 04/10/2025 3:56 AM [facility] Lymphocyte % 29.0 19.6 - 45.3 % 04/10/2025 3:56 AM [facility] Monocyte % 8.1 5.0 - 12.0 % 04/10/2025 3:56 AM [facility] Eosinophil % 3.2 0.3 - [...] Final Resul t [facility]
[address] [place] [address], * (ABNORMAL) Basic Metabolic Panel (04/10/2025 3:46 [...] 3:46 AM EDT 04/10/2025 3:52 AM EDT [facility] - 04/10/2025 4:20 AM [...] Final Resul t [facility]
[address] [place] [address], * Heparin Anti-Xa (04/10/2025 3:46 AM EDT) Heparin Anti-Xa (UFH) 0.35 0.30 - 0.70 IU/ml 04/10/2025 4:23 AM EDT [facility] Blood Venipuncture / Unknown 04/10/2025 3:46 AM EDT 04/10/2025 3:53 AM EDT Larisa [facility] LAB BLOOD ORDERABLES Final R esult Performing Organization Address City/[facility]/ZIP Co de Phone Number [facility]
[address] [place] [address], * Heparin Anti-Xa (04/09/2025 10:05 AM EDT) Heparin Anti-Xa (UFH) 0.36 0.30 - 0.70 IU/ml 04/09/2025 11:12 AM EDT [facility] Blood Venipuncture / Unknown 04/09/2025 10:05 AM EDT 04/09/2025 10:47 AM EDT [facility] LAB BLOOD ORDERABLES Final R esult [facility]
[address] [place] [address], * (ABNORMAL) CBC Auto Differential (04/09/2025 4:18 [...] 26.6 - 33.0 pg 04/09/2025 4:50 AM [facility] MCHC 32.2 31.5 - 35.7 g/dL 04/09/2025 4:50 AM [facility] RDW 12.8 12.3 - 15.4 % 04/09/2025 4:50 AM [facility] RDW-SD 39.9 37.0 - 54.0 fl 04/09/2025 4:50 AM [facility] MPV 10.0 6.0 - 12.0 fL 04/09/2025 4:50 AM [facility] Platelets 211 140 - 450 10*3/mm3 04/09/2025 4:50 AM [facility] Neutrophil % 74.8 42.7 - 76.0 % 04/09/2025 4:50 AM EDT [facility] Lymphocyte % 15.4(L) 19.6 - 45.3 % 04/09/2025 4:50 AM EDT [facility] Monocyte % 8.5 5.0 - 12.0 % 04/09/2025 4:50 AM EDT [facility] Eosinophil % 0.6 0.3 - 6.2 % 04/09/2025 4:50 AM [facility] Basophil % 0.4 0.0 - [...] Fi nal Result [facility]
[address] [place] [address], * Heparin Anti-Xa (04/09/2025 4:18 AM EDT) Heparin Anti-Xa (UFH) 0.41 0.30 - 0.70 IU/ml 04/09/2025 4:53 AM EDT [facility] Blood Venipuncture / Unknown 04/09/2025 4:18 AM EDT 04/09/2025 4:31 AM EDT Una Wheeleroy PharmD LAB BLOOD ORDERABLES Final R esult [facility]
[address] [place] [address], * (ABNORMAL) Basic Metabolic Panel (04/09/2025 4:18 AM EDT) Pathologist [facility] Glucose 147(H) 65 - 99 mg/dL 04/09/2025 [...] Address [facility] Co de Phone Number [facility]
[address] [place] [address], * Wound Culture - Swab, Leg, Right [...] GENERAL ORDERABLES Final Result Performing Organization Address City/[facility]/ZIP Co de Phone Number [facility]
[address] [place] [phone], [facility]
[address] [place] [address], * Anaerobic Culture - Swab, Leg, Right (04/08/2025 3:40 PM EDT) Pathologist [facility] Anaerobic Culture No anaerobes isolated at 5 days ALIZA 04/13/2025 7:24 AM EDT [facility] Swab Structure of right lower limb / Unknown 04/08/2025 3:40 PM EDT 04/08/2025 8:05 PM EDT Sushil Dean Jr., MD MICROBIOLOGY - GENERAL ORDERABLES Final Result Performing Organization Address City/[facility] Co de Phone Number [facility]
[address] [place] [address], [place] [phone] * Scan Slide (04/08/2025 8:41 AM EDT) Pathologist [facility] RBC Morphology Normal Normal 04/08/2025 11:02 AM [...] ORDERABLES Final R esult Performing Organization Address City/[facility]/ZIP Co de Phone Number [facility]
[address] [place] [address], [place] [phone] * (ABNORMAL) CBC Auto Differential (04/08/2025 8:41 AM EDT) Pathologist [facility] WBC 10.07 3.40 - 10.80 10*3/mm3 04/08/2025 [...] Final R esult [facility]
[address] [place] [address], * (ABNORMAL) Basic Metabolic Panel (04/08/2025 8:41 [...] 8:41 AM EDT 04/08/2025 9:09 AM EDT [facility] - 04/08/2025 9:51 AM [...] ORDERABLES nal Result [facility]
[address] [place] [address], * Heparin Anti-Xa (04/08/2025 8:41 AM EDT) Heparin Anti-Xa (UFH) 0.33 0.30 - 0.70 IU/ml 04/08/2025 9:40 AM EDT [facility] Blood Venipuncture / Unknown 04/08/2025 8:41 AM EDT 04/08/2025 9:10 AM EDT Sushil Dean Jr., MD LAB BLOOD ORDERABLES Fi nal Result [facility]
[address] [place] [address], * FL C Arm During Surgery (04/07/2025 [...] Final Result [facility]
[address] [place] [address], [facility]
[address] [place] [address], * Anaerobic Culture - Swab, Leg, Right (04/07/2025 9:14 PM EDT) Anaerobic Culture No anaerobes isolated at 5 days ALIZA 04/13/2025 7:21 AM EDT [facility] Swab Structure of right lower limb / Unknown Collection / Unknown 04/07/2025 9:14 PM EDT 04/08/2025 4:36 AM EDT Sushil Dean Jr., MD MICROBIOLOGY - GENERAL ORDERABLES Final Result Performing Organization Address City/[facility]/ZIP Co de Phone Number [facility]
[address] [place] [address], * Anaerobic Culture - Tissue, Leg (04/07/2025 9:13 PM EDT) Anaerobic Culture No anaerobes isolated at 5 days ALIZA 04/13/2025 7:21 AM EDT [facility] Tissue Lower limb structure / Unknown Collection / Unknown 04/07/2025 9:13 PM EDT 04/08/2025 4:54 AM EDT Jason Álvarez DO MICROBIOLOGY - GENERAL ORDERABLE S Final Result [facility]
[address] [place] [address], * Tissue / Bone Culture - Tissue, [...] GENERAL ORDERABLES Final Result Performing Organization Address City/[facility]/ZIP Co de Phone Number [facility]
[address] [place] [address], [place] [phone] [facility]
[address] [place] [address], [place] [phone] * (ABNORMAL) Wound Culture - Swab, Leg, [...] 0.25 ug/ml: Susceptible Staphylococcus aureus, MRSA Erythromycin ALZIA >=8 ug/ml: Resistant Staphylococcus aureus, MRSA Oxacillin ALIZA >=4 ug/ml: Resistant Staphylococcus aureus, MRSA Rifampin ALIZA <=0.5 ug/ml: Susceptible Staphylococcus aureus, MRSA Tetracycline ALIZA <=1 ug/ml: Susceptible Staphylococcus aureus, MRSA Trimethoprim + Sulfamethoxazole ALIZA <=10 ug/ml: Susceptible Staphylococcus aureus, MRSA Vancomycin ALIZA 1 ug/ml: Susceptible Sushil Dean Jr., MD MICROBIOLOGY - GENERAL ORDERABLES Final Result [facility]
[address] [place] [address], [facility]
[address] [place] [address], * Anaerobic Culture - Swab, Leg, Right (04/07/2025 9:07 PM EDT) Pathologist [facility] Anaerobic Culture No anaerobes isolated at 5 days ALIZA 04/13/2025 7:21 AM EDT [facility] Swab Structure of right lower limb / Unknown Collection / Unknown 04/07/2025 9:07 PM EDT 04/08/2025 4:36 AM EDT Sushil Dena Jr., MD MICROBIOLOGY - GENERAL ORDERABLES Final Result Performing Organization Address [facility] Co de Phone Number [facility]
[address] [place] [address], * Heparin Anti-Xa (04/07/2025 9:10 AM EDT) [facility] Heparin Anti-Xa (UFH) 0.30 0.30 - 0.70 IU/ml 04/07/2025 10:12 AM EDT [facility] Blood Venipuncture / Unknown 04/07/2025 9:10 AM EDT 04/07/2025 9:38 AM EDT Una LundbergD LAB BLOOD ORDERABLES Final R esult Performing Organization Address City/[facility]/ZIP Co de Phone Number [facility]
[address] [place] [address], * (ABNORMAL) CBC Auto Differential (04/07/2025 9:10 AM EDT) Pathologist [facility] WBC 8.63 3.40 - 10.80 10*3/mm3 04/07/2025 9:50 AM EDT [facility] RBC 5.23 4.14 - 5.80 10*6/mm3 04/07/2025 9:50 [facility] Hemoglobin 14.7 13.0 - 17.7 g/dL 04/07/2025 9:50 AM [facility] Hematocrit 44.8 37.5 - 51.0 % 04/07/2025 9:50 AM [facility] MCV 85.7 79.0 - 97.0 fL 04/07/2025 9:50 AM EDT [facility] MCH 28.1 26.6 - 33.0 pg 04/07/2025 9:50 AM [facility] MCHC 32.8 31.5 - 35.7 g/dL 04/07/2025 9:50 AM [facility] RDW 12.8 12.3 - 15.4 % 04/07/2025 9:50 AM [facility] RDW-SD 39.9 37.0 - 54.0 fl 04/07/2025 9:50 AM [facility] MPV 10.8 6.0 - 12.0 fL 04/07/2025 9:50 AM [facility] Platelets 149 140 - 450 10*3/mm3 04/07/2025 9:50 AM [facility] Neutrophil % 66.7 42.7 - 76.0 % 04/07/2025 9:50 AM [facility] Lymphocyte % 20.5 19.6 - 45.3 % 04/07/2025 9:50 AM EDT [facility] Monocyte % 9.8 5.0 - 12.0 % 04/07/2025 9:50 AM [facility] Eosinophil % 2.1 0.3 - 6.2 % 04/07/2025 9:50 AM [facility] Basophil % 0.3 0.0 - 1.5 % 04/07/2025 9:50 AM [facility] Immature Grans % 0.6(H) 0.0 [...] Final Resul t [facility]
[address] [place] [address], * (ABNORMAL) Basic Metabolic Panel (04/07/2025 9:10 [...] Final Resul t [facility]
[address] [place] [address], * MRI Tibia Fibula Right With & [...] [place] 04/07/2025 9:58 AM EDT Workstation ID: [id number] Narrative 04/07/2025 9:58 AM EDT MRI TIBIA [...] [place]enrostro 04/07/2025 9:58 AM EDT Workstation ID: [id number] us Sushil Dean Jr., MD [facility] MRI ORDERABLES Mary Beth l Result * Heparin Anti-Xa (04/07/2025 1:42 AM EDT) Heparin Anti-Xa (UFH) 0.38 0.30 - 0.70 IU/ml 04/07/2025 2:14 AM EDT [facility] Blood Venipuncture / Unknown 04/07/2025 1:42 AM EDT 04/07/2025 1:54 AM EDT Chelsie Navarretesapna [facility] LAB BLOOD ORDERABLES Final R esult Performing Organization Address City/[facility]/ZIP Co de Phone Number [facility]
[address] [place] [address], * Heparin Anti-Xa (04/06/2025 7:16 PM EDT) Pathologist [facility] Heparin Anti-Xa (UFH) 0.33 0.30 - 0.70 IU/ml 04/06/2025 7:50 PM EDT [facility] Blood Venipuncture / Unknown 04/06/2025 7:16 PM EDT 04/06/2025 7:35 PM EDT Cherri Beatty [facility] LAB BLOOD ORDERABLES Final Res ult Performing Organization Address City/[facility] Co de Phone Number [facility]
[address] [place] [address], * Potassium (04/06/2025 7:16 PM EDT) Pathologist [facility] Potassium 4.0 3.5 - 5.2 mmol/L 04/06/2025 7:53 PM EDT [facility] Blood Venipuncture / Unknown 04/06/2025 7:16 PM EDT 04/06/2025 7:35 PM EDT Jason Álvarez DO LAB BLOOD ORDERABLES Final Resul t Performing Organization Address City/[facility]/ZIP Co de Phone Number [facility]
[address] [place] [address], * (ABNORMAL) Heparin Anti-Xa (04/06/2025 12:36 PM EDT) Heparin Anti-Xa (UFH) 0.24(L) 0.30 - 0.70 IU/ml 04/06/2025 1:23 PM EDT [facility] Blood Venipuncture / Unknown 04/06/2025 12:36 PM EDT 04/06/2025 1:07 PM EDT Una LnudbergD LAB BLOOD ORDERABLES Final R esult [facility]
[address] [place] [address], * (ABNORMAL) Heparin Anti-Xa (04/06/2025 3:42 AM EDT) [facility] Heparin Anti-Xa (UFH) 0.25(L) 0.30 - 0.70 IU/ml 04/06/2025 5:30 AM EDT [facility] Blood Venipuncture / Unknown 04/06/2025 3:42 AM EDT 04/06/2025 4:59 AM EDT Chelsie Turpin [facility] LAB BLOOD ORDERABLES Final R esult [facility]
[address] [place] [address], * (ABNORMAL) Basic Metabolic Panel (04/06/2025 3:42 [...] Final Resul t [facility]
[address] [place] [address], * (ABNORMAL) CBC Auto Differential (04/06/2025 3:41 [...] Final Resul t [facility]
[address] [place] [address], * Heparin Anti-Xa (04/05/2025 8:43 PM EDT) Heparin Anti-Xa (UFH) 0.38 0.30 - 0.70 IU/ml 04/05/2025 9:09 PM EDT [facility] Blood Venipuncture / Unknown 04/05/2025 8:43 PM EDT 04/05/2025 8:55 PM EDT Cherri Beatty [facility] LAB BLOOD ORDERABLES Final Res ult Performing Organization Address [facility] Co de Phone Number [facility]
[address] [place] [address], * CK (04/05/2025 12:15 PM EDT) Creatine Kinase 140 20 - 200 U/L 04/05/2025 1:31 PM EDT [facility] Blood Venipuncture / Unknown 04/05/2025 12:15 PM EDT 04/05/2025 1:03 PM EDT Carlton Mead MD LAB BLOOD ORDERABLES Final R esult Performing Organization Address [facility] Co de Phone Number [facility]
[address] [place] [address], [place] [phone] * (ABNORMAL) Heparin Anti-Xa (04/05/2025 12:15 PM EDT) Heparin Anti-Xa (UFH) 0.17(L) 0.30 - 0.70 IU/ml 04/05/2025 1:21 PM EDT [facility] Blood Venipuncture / Unknown 04/05/2025 12:15 PM EDT 04/05/2025 1:04 PM EDT Una LundbergD LAB BLOOD ORDERABLES Final R esult Performing Organization Address City/[facility]/ZIP Co de Phone Number [facility]
[address] [place] [address], * (ABNORMAL) aPTT (04/05/2025 3:54 AM EDT) [...] are 60 to 70 seconds. Una Perla [employer] LAB BLOOD ORDERABLES Final R esult Performing Organization Address [facility] Co de Phone Number [facility]
[address] [place] [address], * Heparin Anti-Xa (04/05/2025 3:54 AM EDT) [facility] Heparin Anti-Xa (UFH) 0.30 0.30 - 0.70 IU/ml 04/05/2025 4:32 AM EDT [facility] Blood Venipuncture / Unknown 04/05/2025 3:54 AM EDT 04/05/2025 4:15 AM EDT CimetrixD LAB BLOOD ORDERABLES Final R esult Performing Organization Address City/[facility] Co de Phone Number [facility]
[address] [place] [address], * (ABNORMAL) CBC Auto Differential (04/05/2025 3:54 [...] 26.6 - 33.0 pg 04/05/2025 4:20 AM [facility] MCHC 32.8 31.5 - 35.7 [...] 42.7 - 76.0 % 04/05/2025 4:20 AM [facility] Lymphocyte % 14.0(L) 19.6 - 45.3 % 04/05/2025 4:20 AM EDT [facility] Monocyte % 11.0 5.0 - 12.0 % 04/05/2025 4:20 AM [facility] Eosinophil % 0.8 0.3 - 6.2 % 04/05/2025 4:20 AM [facility] Basophil % 0.3 0.0 - [...] R esult [facility]
[address] [place] [address], * (ABNORMAL) Basic Metabolic Panel (04/05/2025 3:54 AM EDT) [facility] Signature Glucose 152(H) 65 - 99 [...] 3:54 AM EDT 04/05/2025 4:15 AM EDT [facility] - 04/05/2025 4:40 AM [...] Address [facility] Co de Phone Number [facility]
[address] [place] [address], * (ABNORMAL) aPTT (04/05/2025 12:18 AM EDT) [...] Address [facility] Co de Phone Number [facility]
[address] [place] [address], [place] [phone] * (ABNORMAL) Protime-INR (04/05/2025 12:18 AM EDT) Protime 15.9(H) 12.2 - 15.3 Seconds 04/05/2025 12:53 AM EDT [facility] INR 1.19(H) 0.89 - 1.12 04/05/2025 12:53 AM EDT [facility] Blood Venipuncture / Unknown 04/05/2025 12:18 AM EDT 04/05/2025 12:37 AM EDT Una Perla PharmD LAB BLOOD ORDERABLES Final R esult Performing Organization Address City/[facility] Co de Phone Number [facility]
[address] [place] [address], [place] [phone] * Heparin Anti-Xa (04/05/2025 12:18 AM EDT) Heparin Anti-Xa (UFH) 0.39 0.30 - 0.70 IU/ml 04/05/2025 12:54 AM EDT [facility] Blood Venipuncture / Unknown 04/05/2025 12:18 AM EDT 04/05/2025 12:37 AM EDT Una Perla PharmD LAB BLOOD ORDERABLES Final R esult [facility]
[address] [place] [address], * MRI Tibia Fibula Right With & [...] MD 04/04/2025 11:00 PM EDT Workstation ID: [id number] Narrative 04/04/2025 11:00 PM EDT MRI TIBIA [...] MD 04/04/2025 11:00 PM EDT Workstation ID: [id number] us Leonora Shepherd MD IMG MRI ORDERABLES Final Resu lt * POC Creatinine (04/04/2025 2:49 PM EDT) [facility] Creatinine 1.10 0.60 - 1.30 mg/dL 04/07/2025 7:14 PM EDT [facility] Comment:Serial Number: [id number] Venous Blood 04/04/2025 2:49 PM EDT 04/07/2025 7:14 PM EDT Jason Álvarez DO POINT OF CARE TEST ORDERABLES Fi nal Result [facility]
[address] [place] [address], * (ABNORMAL) CBC Auto Differential (04/04/2025 2:47 [...] 12.3 - 15.4 % 04/04/2025 2:56 PM [facility] RDW-SD 40.3 37.0 - 54.0 [...] 19.6 - 45.3 % 04/04/2025 2:56 PM [facility] Monocyte % 11.2 5.0 - 12.0 % 04/04/2025 2:56 PM [facility] Eosinophil % 0.4 0.3 - 6.2 % 04/04/2025 2:56 PM EDT [facility] Basophil % 0.2 0.0 - 1.5 % 04/04/2025 2:56 PM [facility] Immature Grans % 0.2 0.0 - 0.5 % 04/04/2025 2:56 PM [facility] Neutrophils, Absolute 9.52(H) 1.70 - 7.00 10*3/mm3 04/04/2025 2:56 PM [facility] Lymphocytes, Absolute 1.66 0.70 - 3.10 10*3/mm3 04/04/2025 2:56 PM EDT [facility] Monocytes, Absolute 1.43(H) 0.10 - 0.90 10*3/mm3 04/04/2025 2:56 PM EDT [facility] Eosinophils, Absolute 0.05 0.00 - 0.40 10*3/mm3 04/04/2025 2:56 PM [facility] Basophils, Absolute 0.03 0.00 - 0.20 10*3/mm3 04/04/2025 2:56 PM EDT [facility] Immature Grans, Absolute 0.03 0.00 - 0.05 10*3/mm3 04/04/2025 2:56 PM EDT [facility] nRBC 0.0 0.0 - 0.2 /100 WBC 04/04/2025 2:56 PM EDT [facility] Blood Venipuncture / Unknown 04/04/2025 2:47 PM EDT 04/04/2025 2:52 PM EDT Mario Ortiz GhanshyamNuvosun LAB BLOOD ORDERABLES Fin al Result Performing Organization Address City/[facility]/ZIP Co de Phone Number [facility]
[address] [place] [address], * (ABNORMAL) C-reactive Protein (04/04/2025 2:47 PM EDT) C-Reactive Protein 8.57(H) 0.00 - 0.50 mg/dL 04/04/2025 3:26 PM EDT [facility] Blood Venipuncture / Unknown 04/04/2025 2:47 PM EDT 04/04/2025 2:52 PM EDT Mario Ortiz GhanshyamNuvosun LAB BLOOD ORDERABLES Fin al Result Performing Organization Address [facility] de Phone Number [facility]
[address] [place] [address], * (ABNORMAL) Sedimentation Rate (04/04/2025 2:47 PM EDT) Sed Rate 51(H) 0 - 15 mm/hr 04/04/2025 3:06 PM EDT [facility] Blood Venipuncture / Unknown 04/04/2025 2:47 PM EDT 04/04/2025 2:52 PM EDT Mario Ortiz [facility] BLOOD ORDERABLES Fin al Result Performing Organization Address City/[facility]/ZIP Co de Phone Number [facility]
[address] [place] [address], * Comprehensive Metabolic Panel (04/04/2025 2:47 PM [...] Fin al Result [facility]
[address] [place] [address], documented in this encounter Visit Diagnoses Diagnosis [...] 04/05/2025 3:33 PM EDT 2,000 Units heparin 23724 units/250 mL (100 units/mL) in 0.45 % [...] BPA Driven Protocol Open Order & [facility] Electrolyte Replacement Protocol Algorithm to [...] BPA Driven Protocol Open Order & [facility] Electrolyte Replacement Protocol Algorithm to [...] disposal. 0831 (Given - Provider: Amber Salazar, BPM ANALYST)194 (Given - Provider: Anahy Marcelino, BPM ANALYST)2129 (Canceled Entry - Provider: Anahy Marcelino RRT [...] Continuous Medication Order 04/09/2025 04/10/2025 04/11/2025 heparin 13919 units/250 mL (100 units/mL) in 0.45 % [...] BPA Driven Protocol Open Order & [facility] Electrolyte Replacement Protocol Algorithm to [...] BPA Driven Protocol Open Order & [facility] Electrolyte Replacement Protocol Algorithm to [...] documented as of this encounter Care Teams Change Room Attendant Relationship Specialty Start Date End Date Provider, [place] [address] PCP - General 05/09/23 documented as of this encounter
--- OUTSIDE RECORDS SUMMARY | 2025-04-07 18:00 | XMS_ITS | Encounter Summary ---
[facility] Address [address] [place] [address] Care Team Providers Care Product Management Internship Name Role Phone Provider, No Known Primary Care Provider Unavail able Reason for Visit * Reason Comments Leg Swelling * Auth/Cert Specialty Diagnoses / Procedures Referred By Contac t Referred To Contact Diagnoses Right BKA infection Referral ID Status Reason Start Date Expiration Date Visits Re quested Visits Authorized [id number] 1 1 Encounter Details Date Type Department Care Team (Late st Contact Info) Description 04/07/2025 6:00 PM EDT - 04/07/2025 6:52 PM EDT Surgery [facility] OR [address] [place] [address] Sushil Dean Jr., MD [address] [place] [address] [address] [id number] LEG DEBRIDEMENT, IRRIGATION Social History Tobacco Use Types Packs/Day Years Used Date Smoking Tobacco: Never Smokeless Tobacco: Never Tobacco Cessation:Counseling Given: Not Answered Alcohol Use Standard Drinks/Week Comments Not Currently 0 (1 standard drink = 0.6 oz pur e alcohol) [facility] Utilities Answer Date Recorded In the past 12 months has [employer] electric, gas, oil, or water company threatened [...] or training? Not on file Preferred Language Chinese 04/07/2025 Sex and Gender Information Value Date [...] 2:25 PM EDT Cherri Grimm RN * [place] Suicide Severity Rating Scale (Screener/Recent Self-Report) Question [...] from the original note were not included. [facility] DISCHARGE SUMMARY Patient [...] Date/Time Wound Culture - Swab, Leg, Right [[id number]] (Abnormal) (Susceptibility) Collected: 04/07/252106 Lab Status: Final [...] Units Date/Time FL C Arm During Surgery [[id number]] Resulted: 04/07/252137 Updated: 04/07/252137 Narrative: This procedure was auto-finalized with no dictation required. MRI Tibia Fibula Right With & Without Contrast [[id number]] Collected: 04/07/25 0938 Updated: 04/07/25 1001 Narrative: [...] Buenrostro 04/07/2025 9:58 AM EDT Workstation ID: [id number] MRI Tibia Fibula Right With & Without Contrast [[id number]] Collected: 04/04/252256 Updated: 04/04/252302 Narrative: MRI TIBIA [...] MD 04/04/2025 11:00 PM EDT Workstation ID: [id number] Pending Labs Order Current Status Fungus Culture [...] Male) Date of 1980 Social Security Number [id number] [place] [address] [place] [address] Congregation Unknown Marital Status Unknown Admission Date 04/04/2025 Admission Type Emergency Admitting Provider Jadyn Richardson DO Attending Provider Jadyn Richardson DO Department, Room/Bed [facility] 5G, S565/1 Discharge Date Discharge Disposition Discharge Destination Attending Provider: Jadyn Richardson DO Allergies: Ceftin [Cefuroxime], Keflex [Cephalexin], Latex Isolation: None Infection: MRSA (05/11/23) Code Status: CPR Ht: 180.3 cm (71 ) Wt: 134 kg (295 lb) Admission Cmt: None 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 Insurance as of 04/04/2025 Primary Coverage Payor Plan Insurance Group Employer/Plan Group [place] [id number] Payor Plan Address Payor Plan Phone Number Payor Plan Fax Number Effective Dates [employer] [address] [address] 08/10/2023 - None Entered [facility] [address] Subscriber Name Subscriber Date Member ID WON DENNIS 1980 [id number] Emergency Contacts Link Trainer Mechanic (Rel.) Home Phone Work Phone Mobile Phone Avril Dennis (Spouse) -- -- [phone] Robert Hackett (Relative) -- -- [phone] [facility] 5G [address] [facility] [address] Patient: ROOM: [facility] Won Dennis [address] [facility] [place] [address] : 1980 SSN: [id number] Sex: M PCP: Provider, No Known Emergency Contact Information Name Relation Home Work Mobile Avril Dennis Spouse [phone] Other Contacts Name Relation Home Work Mobile Robert Hackett Relative [phone] INSURANCE PAYOR PLAN GROUP # SUBSCRIBER ID Primary: Secondary: MEDICARE [place] [id number] Admitting Diagnosis: 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 Outpatient intravenous antibiotic therapy: Daptomycin 800 mg IV daily to be supplied by [facility] 2. Home health to perform [...] INFECTIOUS DISEASE Progress Note Won Dennis 1980 [id number] Date of Consult: 04/10/2025 Admission Date: 04/04/2025 [...] Jr., MD, 20 mg at 04/09/25906 heparin 95968 units/250 mL (100 units/mL) in 0.45 % [...] vancomycin 2750 mg/500 mL 0.9% NS IVPB ([facility]) Ordering Provider: Mario Crowley, DO 20 [...] Units Date/Time FL C Arm During Surgery [[id number]] Resulted: 04/07/252137 Updated: 04/07/252137 Narrative: This procedure was auto-finalized with no dictation required. MRI Tibia Fibula Right With & Without Contrast [[id number]] Collected: 04/07/2538 Updated: 04/07/25 1001 Narrative: MRI [...] Buenrostro 04/07/2025 9:58 AM EDT Workstation ID: [id number] Impression: Recurrent Right BKA stump abscess/cellulitis- this [...] discussed his disposition with the pharmacist at [facility] today. I will sign off Outpatient orders: 1. Outpatient intravenous antibiotic therapy: Daptomycin 800 mg IV daily to be supplied by [facility] 2. Home health to perform [...] 04/10/251323 Creation Time: 04/10/251323 Signed Expand All [facility] Medicine Services PROGRESS NOTE Patient Name: [...] Date/Time Wound Culture - Swab, Leg, Right [[id number]] (Abnormal) (Susceptibility) Collected: 04/07/252106 Lab Status: Final [...] Row Name 04/06/25 1143 Sit-Stand Transfer Sit-Stand [place] (Transfers) modified independence - Comment, (Sit-Stand Transfer) Pt stood from recliner. Not holding onto walker, pt able to pull his pants up while balancing on his one leg. -LM Row Name 04/06/25 1143 Gait/Stairs (Locomotion) [place] Level (Gait) modified independence - Distance in [...] By Initials Name Provider Type Gilda Pughi, BRINAA Physical Therapist Obj/Interventions Row Name 04/06/25 1145 Range of Motion Comprehensive General Range of Motion bilateral lower extremity ROM WFL -LM [facility] Name 04/06/25 1145 Strength Comprehensive (MMT) General Manual Muscle Testing (MMT) Assessment no strength deficits identified BLEs -LM [facility] Name 04/06/25 1145 Balance Balance [...] Physical Therapist Goals/Plan No documentation. Clinical Impression [facility] 04/06/25 1146 Pain Pretreatment Pain Rating 0/10 - no pain -LM Posttreatment Pain Rating 0/10 - no pain -LM [facility] 04/06/25 1146 Plan of Care Review Plan of Care Reviewed With patient -LM Outcome Evaluation PT evaluation completed. Pt demonstrated independence with all mobility including ambulating 100 feet using rw - no unsteadiness noted. Pt reports he feels at baseline and doesn't think he needs skilled PT while here. Recommend home at d/c. PT signing off. -LM [facility] Name 04/06/25 1146 Therapy Assessment/Plan (PT) Criteria for Skilled Interventions Met (PT) no;no problems identified which require skilled intervention -LM Therapy Frequency (PT) evaluation only -LM Predicted Duration of Therapy Intervention (PT) Eval Only -LM [facility] Name 04/06/25 1146 Vital Signs Pretreatment Heart Rate (beats/min) 86 -LM Posttreatment Heart Rate (beats/min) 96 -LM Pre SpO2 (%) 95 -LM O2 Delivery Pre Treatment room air -LM Post SpO2 (%) 96 -LM O2 Delivery Post Treatment room air -LM Pre Patient Position Sitting -LM Post Patient Position Sitting -LM [facility] Name 04/06/25 1146 Positioning and [...] Nurse Physical Therapy Education Title: PT OT STORE ADMINISTRATIVE ASSISTANT Therapies (Done) Topic: Physical Therapy (Done) Point: Mobility training (Done) Learning Progress Summary Patient Acceptance, E, VU,DU by at 04/06/2025 1147 Point: Precautions (Done) Learning Progress Summary Patient Acceptance, E, VU,DU by at 04/06/2025 1147 User Cabrera Initials Effective Dates Name Provider Type [facility] 01/24/25 - Susan Cavazos, PT Physical [...] Description Service Date Service Provider Modifiers Qty [id number] PT EVAL LOW COMPLEXITY 3 04/06/2025 Susan Cavazos, PT GP 1 PT G-Codes Outcome Measure Options: AM-PAC 6 Clicks Basic Mobility (PT) AM-PAC 6 Clicks Score (PT): 23 PT Discharge Summary Anticipated Discharge Disposition (PT): home Ssuan Cavazos PT 04/06/2025 documented in this encounter [...] mg Daily 04/05/2025 -- Route: Oral heparin 67978 units/250 mL (100 units/mL) in 0.45 % [...] 22 [facility] [address], [address] [facility], [address] Please schedule at [phone] VONDA Garcia 04/11/25 08:32 EDT Cosigned by Sushil Dean Jr., MD at 04/19/2025 10:33 AM EDT Associated attestation - Sushil Dean Jr., MD - 04/19/2025 10:33 AM EDT I have reviewed this documentation and agree. * Rosario Hill APRN - 04/10/2025 1:24 PM EDT Images from the original note were not included. [facility] PROGRESS NOTE Patient [...] Date/Time Wound Culture - Swab, Leg, Right [[id number]] (Abnormal) (Susceptibility) Collected: 04/07/252106 Lab Status: Final [...] mg Daily 04/05/2025 -- Route: Oral heparin 03501 units/250 mL (100 units/mL) in 0.45 % [...] 22 [facility] [address] [address], [address] [facility], [address] Please schedule at [phone] VONDA Garcai 04/10/25 09:01 EDT Cosigned by Sushil Dean Jr., MD at 04/19/2025 10:33 AM EDT Associated attestation - Sushil Dean Jr., MD - 04/19/2025 10:33 AM EDT I have reviewed this documentation and agree. * Carlton Mead MD - 04/10/2025 7:38 AM EDT Images from the original note were not included. INFECTIOUS DISEASE Progress Note Won Dennis 1980 [id number] Date of Consult: 04/10/2025 Admission Date: 04/04/2025 [...] IRRIGATION; Surgeon: Sushil Dean Jr., MD; Location: [facility]; Service: Orthopedics; Laterality: Right; PLACEMENT OF WOUND VAC Right 04/07/2025 Procedure: WOUND VACUUM ASSISTED CLOSURE; Surgeon: Sushil Dean Jr., MD; Location: [facility]; Service: Orthopedics; Laterality: Right; WOUND CLOSURE [...] Jr., MD, 20 mg at 04/09/25906 heparin 99612 units/250 mL (100 units/mL) in 0.45 % [...] capsule 0.4 mg, 0.4 mg, Oral, Nightly, uSshil Dean Jr., MD, 0.4 mg at 04/09/252026 [...] Units Date/Time FL C Arm During Surgery [[id number]] Resulted: 04/07/252137 Updated: 04/07/252137 Narrative: This procedure was auto-finalized with no dictation required. MRI Tibia Fibula Right With & Without Contrast [[id number]] Collected: 04/07/25937 Updated: 04/07/25 100 Narrative: MRI [...] Buenrostro 04/07/2025 9:58 AM EDT Workstation ID: [id number] Impression: Recurrent Right BKA stump abscess/cellulitis- this [...] discussed his disposition with the pharmacist at [facility] today. I will sign off Outpatient orders: 1. Outpatient intravenous antibiotic therapy: Daptomycin 800 mg IV daily to be supplied by [facility] 2. Home health to perform [...] 07:38 EDT * Larisa Hamilton [facility] - 04/10/2025 7:17 AM EDT Pharmacy [...] from the original note were not included. [facility] PROGRESS NOTE Patient [...] Date/Time Wound Culture - Swab, Leg, Right [[id number]] (Abnormal) Collected: 04/07/252106 Lab Status: Preliminary result [...] DO 04/09/25 * Larisa Hamilton [facility] - 04/09/2025 11:36 AM EDT Pharmacy [...] -- Admin Instructions: Open Order & Select [facility] Electrolyte Replacement Protocol Algorithm to View [...] mg Daily 04/05/2025 -- Route: Oral heparin 00718 units/250 mL (100 units/mL) in 0.45 % [...] -- Admin Instructions: Open Order & Select [facility] Electrolyte Replacement Protocol Algorithm to View [...] radiographs [facility] [address], [address] [facility], [address] Please schedule at [phone] VONDA Garcia 04/09/25 09:18 EDT Cosigned by Sushil Dean Jr., MD at 04/19/2025 10:33 AM EDT Associated attestation - Sushil Dean Jr., MD - 04/19/2025 10:33 AM EDT I have reviewed this documentation and agree. * Carlton Mead MD - 04/09/2025 8:25 AM EDT Images from the original note were not included. INFECTIOUS DISEASE Progress Note Won Dennis 1980 [id number] Date of Consult: 04/09/2025 Admission Date: 04/04/2025 [...] Surgeon: Sushil Dean Jr., MD; Location: [facility]; Service: Orthopedics; Laterality: Right; PLACEMENT OF WOUND VAC Right 04/07/2025 Procedure: WOUND VACUUM ASSISTED CLOSURE; Surgeon: Sushil Dean Jr., MD; Location: [facility] OR; Service: Orthopedics; Laterality: Right; History [...] MD, 20 mg at 04/08/25 0800 heparin 02272 units/250 mL (100 units/mL) in 0.45 % [...] 10 mL, 10 mL, Intravenous, PRN, Sushil Daen Jr., MD sodium chloride 0.9 % infusion [...] Units Date/Time FL C Arm During Surgery [[id number]] Resulted: 04/07/252137 Updated: 04/07/252137 Narrative: This procedure was auto-finalized with no dictation required. MRI Tibia Fibula Right With & Without Contrast [[id number]] Collected: 04/07/25 0938 Updated: 04/07/25 1001 Narrative: [...] Chitra 04/07/2025 9:58 AM EDT Workstation ID: [id number] Impression: Recurrent Right BKA stump abscess/cellulitis- this [...] mg IV daily to be supplied by [facility] 2. Home health to perform [...] from the original note were not included. [facility] PROGRESS NOTE Patient [...] Buenrostro 04/07/2025 9:58 AM EDT Workstation ID: [id number] I have personally reviewed the therapy plans: [...] DO 04/08/25 * Hamilton, Larisa, [facility] - 04/08/2025 11:48 AM EDT Pharmacy [...] -- Admin Instructions: Open Order & Select [facility] Electrolyte Replacement Protocol Algorithm to View [...] mg Daily 04/05/2025 -- Route: Oral heparin 29994 units/250 mL (100 units/mL) in 0.45 % [...] INFECTIOUS DISEASE Progress Note Won Dennis 1980 [id number] Date of Consult: 04/08/2025 Admission Date: 04/04/2025 [...] Sushil Dean Jr., MD; Location: [facility] OR; Service: Orthopedics; Laterality: Right; PLACEMENT OF WOUND VAC Right 04/07/2025 Procedure: WOUND VACUUM ASSISTED CLOSURE; Surgeon: Sushil Dean Jr., MD; Location: [facility] OR; Service: Orthopedics; Laterality: Right; History [...] Oral, Q6H PRN, 500 mg at 04/06/25 3724 OR acetaminophen (TYLENOL) 160 MG/5ML oral solution [...] Jr., MD, 20 mg at 04/07/25950 heparin 70658 units/250 mL (100 units/mL) in 0.45 % [...] vancomycin 2750 mg/500 mL 0.9% NS IVPB ([facility]) Ordering Provider: Mario Crowley, DO 20 [...] Units Date/Time FL C Arm During Surgery [[id number]] Resulted: 04/07/252137 Updated: 04/07/252137 Narrative: This procedure was auto-finalized with no dictation required. MRI Tibia Fibula Right With & Without Contrast [[id number]] Collected: 04/07/25 0938 Updated: 04/07/25 1001 Narrative: [...] Buenrostro 04/07/2025 9:58 AM EDT Workstation ID: [id number] Impression: 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 (Treated by ID in [facility]). Dr. Torres treated him with [...] from the original note were not included. [facility] PROGRESS NOTE Patient [...] Buenrostro 04/07/2025 9:58 AM EDT Workstation ID: [id number] I have personally reviewed the therapy plans: [...] Preeti 04/07/25 * Larisa Hamilton, [facility] - 04/07/2025 11:56 AM EDT Pharmacy [...] INFECTIOUS DISEASE Progress Note Won Dennis 1980 [id number] Date of Consult: 04/07/2025 Admission Date: 04/04/2025 [...] MD, 20 mg at 04/06/25 0900 heparin 46631 units/250 mL (100 units/mL) in 0.45 % NaCl infusion, 18 Units/kg/hr, Intravenous, Titrated, Cherri Beatty, [facility], Last Rate: 24.1 mL/hr at 04/07/258, [...] With & Without Contrast - In process [[id number]] Resulted: 04/07/25828 Updated: 04/07/25828 This result has not been signed. Information might be incomplete. MRI Tibia Fibula Right With & Without Contrast [[id number]] Collected: 04/04/252256 Updated: 04/04/253 Narrative: MRI TIBIA [...] represent a small area of phlegmonous change ([id number] image 10) measuring approximately 1.6 cm which [...] MD 04/04/2025 11:00 PM EDT Workstation ID: [id number] Impression: 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 (Treated by ID in [facility] Dr. Torres treated him with [...] -- Admin Instructions: Open Order & Select [facility] Electrolyte Replacement Protocol Algorithm to View [...] mg Daily 04/05/2025 -- Route: Oral heparin 98206 units/250 mL (100 units/mL) in 0.45 % [...] -- Admin Instructions: Open Order & Select [facility] Electrolyte Replacement Protocol Algorithm to View [...] 06:07 EDT * Cherri Beatty [facility] - 04/06/2025 1:47 PM EDT Pharmacy [...] from the original note were not included. [facility] PROGRESS NOTE Patient [...] MD 04/04/2025 11:00 PM EDT Workstation ID: [id number] I have personally reviewed the therapy plans: [...] mg Daily 04/05/2025 -- Route: Oral heparin 60773 units/250 mL (100 units/mL) in 0.45 % [...] -- Admin Instructions: Open Order & Select [facility] Electrolyte Replacement Protocol Algorithm to View [...] -- Admin Instructions: Open Order & Select [facility] Electrolyte Replacement Protocol Algorithm to View [...] INFECTIOUS DISEASE follow up. Won Dennis 1980 [id number] Date of Consult: 04/06/2025 Admission Date: 04/04/2025 [...] MD, 20 mg at 04/06/25 0900 heparin 79073 units/250 mL (100 units/mL) in 0.45 % NaCl infusion, 18 Units/kg/hr, Intravenous, Titrated, Cherri Beatty [facility], Last Rate: 24.1 mL/hr at 04/06/25 [...] Tibia Fibula Right With & Without Contrast [[id number]] Collected: 04/04/252256 Updated: 04/04/252302 Narrative: MRI TIBIA [...] MD 04/04/2025 11:00 PM EDT Workstation ID: [id number] Impression: 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 (Treated by ID in [facility] Dr. Torres treated him with [...] from the original note were not included. [facility] PROGRESS NOTE Patient [...] MD 04/04/2025 11:00 PM EDT Workstation ID: [id number] I have personally reviewed the therapy plans: [...] from the original note were not included. [facility] HISTORY AND PHYSICAL [...] MD 04/04/2025 11:00 PM EDT Workstation ID: [id number] Assessment & Plan Assessment & Plan Won [...] PICC placed by Rhoda Bonner RN [facility], tip verified by 3CG see LDA. 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 He [...] was evaluated in the emergency department in [place], was discharged with instructions for follow-up. He [...] Morning Lactobacillus-Inulin ([facility]) capsule Take 200 mg by [...] MD 04/04/2025 11:00 PM EDT Workstation ID: [id number] Assessment: Right BKA infection 44-year-old male with [...] DISEASE CONSULT/INITIAL HOSPITAL VISIT Won Dennis 1980 [id number] Date of Consult: 04/05/2025 Admission Date: 04/04/2025 [...] Leonora Shepherd MD, 40 mg at 04/04/25 4175 sennosides-docusate (PERICOLACE) 8.6-50 MG per tablet 2 [...] MD, 20 mg at 04/05/25 09 heparin 58104 units/250 mL (100 units/mL) in 0.45 % [...] Leonora Shepherd MD, 10 mg at 04/04/25 7326 Pharmacy to Dose Heparin, , Not Applicable, [...] Tibia Fibula Right With & Without Contrast [[id number]] Collected: 04/04/252256 Updated: 04/04/252302 Narrative: MRI TIBIA [...] represent a small area of phlegmonous change ([id number] image 10) measuring approximately 1.6 cm which [...] MD 04/04/2025 11:00 PM EDT Workstation ID: [id number] Impression: 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 (Treated by ID in [facility] Dr. Torres treated him with [...] Jr., MD - 04/08/2025 3:51 PM EDT [facility] OPERATIVE REPORT PATIENT NAME: Won Dennis DATE OF : 1980 PREOP DIAGNOSIS: Right Right below-knee amputation infection POSTOP DIAGNOSIS: Same. PROCEDURE: Right Right 86824: Secondary closure below-knee amputation SURGEON: Sushil Dean MD OPERATIVE TEAM: Nuclear Process Engineer: Susi Grullon RN Scrub Person: Mary Paredes Scrub Person Extra: Hortencia Toribio Other: Katt Gotti RN; Charis Neville RN ANESTHETIST: Anesthesiologist: Ulises Hoffman MD HEEL MOLDER: Stan Casillas CRNA Student Nurse Director Global Market Research: Karol Albert SRNA ANESTHESIA: Choice ESTIMATED BLOOD [...] CULTURE (Canceled) Sushil Dean Jr., MD 04/08/25 2087 Description: RIGHT LEG DEEP WOUND FOR CULTURE [...] PM EDT [facility], [place] [address] OPERATIVE REPORT PATIENT NAME: Won Dennis DATE OF : 1980 PREOP DIAGNOSIS: Right Right below knee amputation stump infection POSTOP DIAGNOSIS: Same. PROCEDURE: Right Right 08899: Incision and drainage of surgical site infection 11160: Debridement of skin, subcutaneous tissue, muscle 84162: Wound vacuum-assisted closure SURGEON: Sushil Dean MD OPERATIVE TEAM: Nuclear Process Engineer: Anum Sanchez RN Scrub Person: Hortencia Toribio; Gerald Ivey BECK OPERATOR: Anesthesiologist: Luci Alonso DO ANESTHESIA: General [...] this chart in the absence of a car carder. No orders to display RADIOLOGY: [x] Radiologist's [...] changes. DEBRA has spoke with Dena at [facility] today multiple times to get setup [...] to get IV ABX at home with [facility]; however, Medicaid lapsed on 04/08. DEBRA was unaware until this morning that Medicaid has lapsed. Patient explained that he has Medicare A and B. CM spoke with KELLEE and given themhis Medicare number [id number], she sent it to Admission. DEBRA spoke with Kerri, with [facility], and explained that he had [...] changes and lab work. DEBRA called Dena [facility] infusion center they can accept patient and start him. He is known for their facility. The Facility will need to run it through his insurance first. CM faxed the orders over to [facility] at [phone]. CM will follow up with them tomorrow [...] 04/09/2025 2:51 PM EDT Continued Stay Note [facility] Patient Name: Won Dennis Today's Date: 04/09/2025 Admit Date: 04/04/2025 Plan: Home Discharge Plan Row Name 04/09/25 1311 Plan Plan Home Patient/Family in Agreement with Plan yes Plan Comments CM spoke with patient at bedside today. Wheelchair from [employer] is at bedside. Patient getting PICC line [...] note were not included. Discharge Planning Assessment [facility] Patient Name: Won Dennis Today's Date: [...] with family Patient/Family Anticipated Services at [facility] dietary service manager Anticipated family or friend will [...] for home. CM [facility] He is not current with home health services. PCP is Dr. Jordan. Insurance is [employer] [place]. Patient discharge plan is home with priavte transport. CM will follow for any discharge needs. Final Discharge Disposition Code 01 - home or self-care Continued Care and Services - Admitted Since 04/04/2025 No active coordination exists. Demographic Summary Row Name 04/07/25 1143 General Information Arrived From hospital Preferred Language Chinese Functional Status Row Name 04/07/25 1143 Functional [...] CBC Auto Differential (04/11/2025 3:40 AM EDT) [facility] WBC 7.87 3.40 - 10.80 10*3/mm3 04/11/2025 4:02 AM EDT [facility] RBC 4.70 4.14 - 5.80 10*6/mm3 04/11/2025 4:02 AM [facility] Hemoglobin 12.8(L) 13.0 - 17.7 g/dL 04/11/2025 4:02 AM [facility] Hematocrit 40.5 37.5 - 51.0 % 04/11/2025 4:02 AM [facility] MCV 86.2 79.0 - 97.0 fL 04/[facility] MCH 27.2 26.6 - 33.0 pg 04/11/2025 4:02 AM [facility] MCHC 31.6 31.5 - 35.7 g/dL 04/11/2025 4:02 AM [facility] RDW 12.9 12.3 - 15.4 % 04/11/2025 4:02 AM [facility] RDW-SD 40.5 37.0 - 54.0 fl 04/11/2025 4:02 AM [facility] MPV 9.2 6.0 - 12.0 fL 04/11/2025 4:02 AM [facility] Platelets 267 140 - 450 [...] 6.2 % 04/[facility] Basophil % 0.4 0.0 - 1.5 % 04/11/2025 4:[facility] Immature Grans % 0.4 0.0 - 0.5 % 04/11/2025 4:02 AM [facility] Neutrophils, Absolute 4.69 1.70 - 7.00 10*3/mm3 04/11/2025 4:02 AM EDT [facility] Lymphocytes, Absolute 2.07 0.70 - 3.10 10*3/mm3 04/11/2025 4:02 AM EDT [facility] Monocytes, Absolute 0.73 0.10 - 0.90 10*3/mm3 04/11/2025 4:02 AM EDT [facility] Eosinophils, Absolute 0.32 0.00 - 0.40 10*3/mm3 04/11/2025 4:02 AM EDT [facility] Basophils, Absolute 0.03 0.00 - 0.20 10*3/mm3 04/11/2025 4:02 AM EDT [facility] Immature Grans, Absolute 0.03 0.00 - 0.05 10*3/mm3 04/11/2025 4:02 AM EDT [facility] nRBC 0.0 0.0 - 0.2 /100 WBC 04/11/2025 4:02 AM EDT [facility] Blood Venipuncture / Unknown 04/11/2025 3:40 AM EDT 04/11/2025 3:59 AM EDT us Sushil Dean Jr., MD LAB BLOOD ORDERABLES Fi nal Result [facility]
[address] [place] [address], * (ABNORMAL) Comprehensive Metabolic Panel (04/11/2025 3:40 AM EDT) [facility] Signature Glucose 108(H) 65 - 99 mg/dL 04/11/2025 4:19 AM EDT [facility] BUN 12.5 6.0 - 20.0 mg/dL 04/11/2025 4:19 AM EDT [facility] Creatinine 0.68(L) 0.76 - 1.27 mg/dL 04/11/2025 4:19 AM [facility] Sodium 140 136 - 145 mmol/L 04/11/2025 4:19 AM [facility] Potassium 3.8 3.5 - 5.2 mmol/L 04/11/2025 4:19 AM [facility] Chloride 105 98 - 107 mmol/L 04/11/2025 4:19 AM [facility] CO2 28.2 22.0 - 29.0 mmol/L 04/11/2025 4:19 AM [facility] Calcium 8.2(L) 8.6 - 10.5 mg/dL 04/11/2025 4:19 AM [facility] Total Protein 6.1 6.0 - 8.5 g/dL 04/11/2025 4:19 AM [facility] Albumin 3.1(L) 3.5 - 5.2 g/dL 04/11/2025 4:19 AM [facility] ALT (SGPT) 52(H) 1 - 41 U/L 04/11/2025 4:19 AM [facility] AST (SGOT) 40 1 - 40 U/L 04/11/2025 4:19 AM [facility] Alkaline Phosphatase 99 39 - 117 U/L 04/11/2025 4:19 AM [facility] Total Bilirubin 0.2 0.0 - 1.2 mg/dL 04/11/2025 4:19 AM [facility] Globulin 3.0 gm/dL 04/11/2025 4:19 AM [facility] Comment:Calculated Result A/G Ratio 1.0 g/dL 04/11/2025 4:19 AM [facility] BUN/Creatinine Ratio 18.4 7.0 - 25.0 04/11/2025 4:19 AM [facility] Anion Gap 6.8 5.0 - 15.0 mmol/L 04/11/2025 4:19 AM [facility] eGFR 117.5 >60.0 mL/min/1.7 3 04/11/2025 4:19 AM EDT [facility] Blood Venipuncture / Unknown 04/11/2025 3:40 AM EDT 04/11/2025 3:56 AM EDT [facility] - 04/11/2025 4:19 AM EDT GFR [...] include race as a factor Rosario Hill CLIENT LIAISON LAB BLOOD ORDERABLES Final Result [facility]
[address] [place] [address], * (ABNORMAL) CBC Auto Differential (04/10/2025 3:46 AM EDT) WBC 9.60 3.40 - 10.80 10*3/mm3 04/10/2025 3:56 AM EDT [facility] RBC 4.67 4.14 - 5.80 10*6/mm3 04/10/2025 3:56 AM EDT [facility] Hemoglobin 12.9(L) 13.0 - 17.7 g/dL 04/10/2025 3:56 AM EDT [facility] Hematocrit 40.1 37.5 - 51.0 % 04/10/2025 3:56 AM EDT [facility] MCV 85.9 79.0 - 97.0 fL 04/10/2025 3:56 AM EDT [facility] MCH 27.6 26.6 - 33.0 pg 04/10/2025 3:56 AM EDT [facility] MCHC 32.2 31.5 - 35.7 g/dL 04/10/2025 3:[facility] RDW 12.9 12.3 - 15.4 % 04/10/2025 3:56 AM [facility] RDW-SD 40.5 37.0 - 54.0 fl 04/10/2025 3:56 AM [facility] MPV 9.5 6.0 - 12.0 fL 04/10/2025 3:56 AM EDT [facility] Platelets 227 140 - 450 10*3/mm3 04/10/2025 3:56 AM [facility] Neutrophil % 59.1 42.7 - 76.0 % 04/10/2025 3:56 AM [facility] Lymphocyte % 29.0 19.6 - 45.3 % 04/10/2025 3:56 AM [facility] Monocyte % 8.1 5.0 - [...] [facility] Neutrophils, Absolute 5.67 1.70 - 7.00 10*3/mm3 04/10/2025 3:[facility] Lymphocytes, Absolute 2.78 0.70 - 3.10 10*3/mm3 04/10/2025 3:56 [facility] Monocytes, Absolute 0.78 0.10 - 0.90 10*3/mm3 04/10/2025 3:56 [facility] Eosinophils, Absolute 0.31 0.00 - 0.40 10*3/mm3 04/10/2025 3:56 [facility] Basophils, Absolute 0.04 0.00 - 0.20 10*3/mm3 04/10/2025 3:56 AM EDT [facility] Immature Grans, Absolute 0.02 0.00 - 0.05 10*3/mm3 04/10/2025 3:56 AM EDT [facility] nRBC 0.0 0.0 - 0.2 /100 WBC 04/10/2025 3:56 AM EDT [facility] Blood Venipuncture / Unknown 04/10/2025 3:46 AM EDT 04/10/2025 3:53 AM EDT us Jason Álvarez DO LAB BLOOD ORDERABLES Final Resul t [facility]
[address] [place] [address], * (ABNORMAL) Basic Metabolic Panel (04/10/2025 3:46 AM EDT) Glucose 125(H) 65 - 99 mg/dL 04/10/2025 4:20 AM EDT [facility] BUN 15.9 6.0 - 20.0 mg/dL 04/10/2025 4:20 AM EDT [facility] Creatinine 0.77 0.76 - 1.27 mg/dL 04/10/2025 4:20 AM EDT [facility] Sodium 137 136 - 145 mmol/L 04/10/2025 4:20 AM EDT [facility] Potassium 3.9 3.5 - 5.2 mmol/L 04/10/2025 4:20 AM EDT [facility] Chloride 102 98 - 107 mmol/L 04/10/2025 4:20 AM EDT [facility] CO2 26.9 22.0 - 29.0 mmol/L 04/10/2025 4:20 AM EDT [facility] Calcium 7.9(L) 8.6 - 10.5 mg/dL 04/10/2025 4:20 AM EDT [facility] BUN/Creatinine Ratio 20.6 7.0 - 25.0 04/10/2025 4:20 AM EDT [facility] Anion Gap 8.1 5.0 - 15.0 mmol/L 04/10/2025 4:20 AM EDT [facility] eGFR 113.2 >60.0 mL/min/1.7 3 04/10/2025 4:20 AM EDT [facility] Blood Venipuncture / Unknown 04/10/2025 3:46 AM EDT 04/10/2025 3:52 AM EDT Narrative [facility] - 04/10/2025 4:20 AM EDT [...] DO LAB BLOOD ORDERABLES Final Resul t [facility]
[address] [place] [address], * Heparin Anti-Xa (04/10/2025 3:46 AM EDT) Heparin Anti-Xa (UFH) 0.35 0.30 - 0.70 IU/ml 04/10/2025 4:23 AM EDT [facility] Blood Venipuncture / Unknown 04/10/2025 3:46 AM EDT 04/10/2025 3:53 AM EDT Larisa Hamilton [facility] LAB BLOOD ORDERABLES Final R esult [facility]
[address] [place] [address], * Heparin Anti-Xa (04/09/2025 10:05 AM EDT) Pathologist [facility] [place] Heparin Anti-Xa (UFH) 0.36 0.30 - 0.70 IU/ml 04/09/2025 11:12 AM EDT [facility] Blood Venipuncture / Unknown 04/09/2025 10:05 AM EDT 04/09/2025 10:47 AM EDT Larisa Hamilton [facility] LAB BLOOD ORDERABLES Final R esult [facility]
[address] [place] [address], * (ABNORMAL) CBC Auto Differential (04/09/2025 4:18 AM EDT) Pathologist [facility] [place] WBC 11.00(H) 3.40 - 10.80 10*3/mm3 04/09/2025 4:50 AM EDT [facility] RBC 4.70 4.14 - 5.80 10*6/mm3 04/09/2025 4:50 AM EDT [facility] Hemoglobin 13.0 13.0 - 17.7 g/dL 04/09/2025 4:50 AM EDT [facility] Hematocrit 40.4 37.5 - 51.0 % 04/09/2025 4:50 AM EDT [facility] MCV 86.0 79.0 - 97.0 fL 04/09/2025 4:50 AM EDT [facility] MCH 27.7 26.6 - 33.0 pg 04/09/2025 4:50 AM EDT [facility] MCHC 32.2 31.5 - 35.7 g/dL 04/09/2025 4:50 AM EDT [facility] RDW 12.8 12.3 - 15.4 % 04/09/2025 4:50 AM [facility] % 04/09/2025 4:50 AM [facility] Lymphocyte % 15.4(L) 19.6 - 45.3 % 04/09/2025 4:50 AM [facility] Monocyte % 8.5 5.0 - 12.0 % 04/09/2025 4:50 AM [facility] Eosinophil % 0.6 0.3 - 6.2 % 04/09/2025 4:50 AM [facility] Basophil % 0.4 0.0 - 1.5 % 04/09/2025 4:50 AM [facility] Immature Grans % 0.3 0.0 - 0.5 % 04/09/2025 4:50 AM [facility] Neutrophils, Absolute 8.23(H) 1.70 - 7.00 10*3/mm3 04/09/2025 4:50 AM [facility] Lymphocytes, Absolute 1.69 0.70 - 3.10 10*3/mm3 04/09/2025 4:50 AM [facility] Monocytes, Absolute 0.94(H) 0.10 - 0.90 10*3/mm3 04/09/2025 4:[facility] Eosinophils, Absolute 0.07 0.00 - 0.40 10*3/mm3 04/09/2025 4:50 AM [facility] Basophils, Absolute 0.04 0.00 - 0.20 10*3/mm3 04/09/2025 4:50 AM [facility] Immature Grans, Absolute 0.03 0.00 - 0.05 10*3/mm3 04/09/2025 4:50 AM EDT [facility] nRBC 0.0 0.0 - 0.2 /100 WBC 04/09/2025 4:50 AM EDT [facility] Blood Venipuncture / Unknown 04/09/2025 4:18 AM EDT 04/09/2025 4:31 AM EDT Sushil Dean Jr., MD LAB BLOOD ORDERABLES Fi nal Result [facility]
[address] [place] [address], * Heparin Anti-Xa (04/09/2025 4:18 AM EDT) Heparin Anti-Xa (UFH) 0.41 0.30 - 0.70 IU/ml 04/09/2025 4:53 AM EDT [facility] Blood Venipuncture / Unknown 04/09/2025 4:18 AM EDT 04/09/2025 4:31 AM EDT Una LundbergD LAB BLOOD ORDERABLES Final R esult [facility]
[address] [place] [address], * (ABNORMAL) Basic Metabolic Panel (04/09/2025 4:18 AM EDT) Glucose 147(H) 65 - 99 mg/dL 04/09/2025 5:33 AM EDT [facility] BUN 23.0(H) 6.0 - 20.0 mg/dL 04/09/2025 5:33 AM EDT [facility] Creatinine 1.15 0.76 - 1.27 mg/dL 04/09/2025 5:33 AM EDT [facility] Sodium 135(L) 136 - 145 mmol/L 04/09/2025 5:33 AM EDT [facility] Potassium 4.2 3.5 - 5.2 mmol/L 04/09/2025 5:33 AM EDT [facility] Chloride 100 98 - 107 mmol/L 04/09/2025 5:33 AM EDT [facility] CO2 26.0 22.0 - 29.0 mmol/L 04/09/2025 5:33 AM EDT [facility] Calcium 8.2(L) 8.6 - 10.5 mg/dL 04/09/2025 5:33 AM EDT [facility] BUN/Creatinine Ratio 20.0 7.0 - 25.0 04/09/2025 5:33 AM EDT [facility] Anion Gap 9.0 5.0 - 15.0 mmol/L 04/09/2025 5:33 AM EDT [facility] eGFR 80.5 >60.0 mL/min/1.7 3 04/09/2025 5:33 AM EDT [facility] Blood Venipuncture / Unknown 04/09/2025 4:18 AM EDT 04/09/2025 4:29 AM EDT [facility] - 04/09/2025 5:33 AM EDT GFR [...] MD LAB BLOOD ORDERABLES Fi nal Result [facility]
[address] [place] [address], * Wound Culture - Swab, Leg, Right (04/08/2025 3:40 PM EDT) Wound Culture No growth at 3 days ALIZA 04/11/2025 10:40 AM EDT [facility] Gram Stain Few (2+) WBCs seen 04/11/2025 10:40 AM EDT [facility] Gram Stain No organisms seen 04/11/2025 10:40 AM EDT [facility] Swab Structure of right lower limb / Unknown 04/08/2025 3:40 PM EDT 04/08/2025 8:05 PM EDT Sushil Dean Jr., MD MICROBIOLOGY - GENERAL ORDERABLES Final Result Performing Organization Address City/[facility]/ZIP Co de Phone Number [facility]
[address] [place] [address], [facility]
[address] [place] [address], * Anaerobic Culture - Swab, Leg, Right (04/08/2025 3:40 PM EDT) Pathologist [facility] [place] Anaerobic Culture No anaerobes isolated at 5 days ALIZA 04/13/2025 7:24 AM EDT [facility] Swab Structure of right lower limb / Unknown 04/08/2025 3:40 PM EDT 04/08/2025 8:05 PM EDT Sushil Dean Jr., MD MICROBIOLOGY - GENERAL ORDERABLES Final Result [facility]
[address] [place] [address], * Scan Slide (04/08/2025 8:41 AM EDT) RBC Morphology Normal Normal 04/08/2025 11:02 AM EDT [facility] WBC Morphology Normal Normal 04/08/2025 11:02 AM EDT [facility] Platelet Estimate Adequate Normal 04/08/2025 11:02 AM EDT [facility] Clumped Platelets Present None Seen 04/08/2025 11:02 AM EDT [facility] Blood Venipuncture / Unknown 04/08/2025 8:41 AM EDT 04/08/2025 9:10 AM EDT Una Minda PharmD LAB BLOOD ORDERABLES Final R esult [facility]
[address] [place] [address], * (ABNORMAL) CBC Auto Differential (04/08/2025 8:41 AM EDT) WBC 10.07 3.40 - 10.80 10*3/mm3 04/08/2025 11:02 AM EDT [facility] RBC 5.01 4.14 - 5.80 10*6/mm3 04/08/2025 11:02 AM EDT [facility] Hemoglobin 14.0 13.0 - 17.7 g/dL 04/08/2025 11:02 AM EDT [facility] Hematocrit 42.7 37.5 - 51.0 % 04/08/2025 11:02 AM EDT [facility] MCV 85.2 79.0 - 97.0 fL 04/08/2025 11:02 AM EDT [facility] MCH 27.9 26.6 - 33.0 pg 04/08/2025 11:02 AM EDT [facility] MCHC 32.8 31.5 - 35.7 g/dL 04/08/2025 11:02 AM EDT [facility] RDW 12.6 12.3 - 15.4 % 04/08/2025 11:02 AM EDT [facility] RDW-SD 38.9 37.0 - [...] [facility] Lymphocytes, Absolute 0.94 0.70 - 3.10 10*3/mm3 04/08/2025 11:02 AM [facility] Monocytes, Absolute 0.46 0.10 - 0.90 10*3/mm3 04/08/2025 11:02 AM [facility] Eosinophils, Absolute 0.03 0.00 - 0.40 10*3/mm3 04/08/2025 11:02 AM [facility] Basophils, Absolute 0.02 0.00 - 0.20 10*3/mm3 04/08/2025 11:02 AM [facility] Immature Grans, Absolute 0.05 0.00 - 0.05 10*3/mm3 04/08/2025 11:02 AM EDT [facility] nRBC 0.0 0.0 - 0.2 /100 WBC 04/08/2025 11:02 AM EDT [facility] Blood Venipuncture / Unknown 04/08/2025 8:41 AM EDT 04/08/2025 9:10 AM EDT Una Perla PharmD LAB BLOOD ORDERABLES Final R esult [facility]
[address] [place] [address], * (ABNORMAL) Basic Metabolic Panel (04/08/2025 8:41 AM EDT) Glucose 125(H) 65 - 99 mg/dL 04/08/2025 9:51 AM EDT [facility] BUN 13.2 6.0 - 20.0 mg/dL 04/08/2025 9:51 AM EDT [facility] Creatinine 0.69(L) 0.76 - 1.27 mg/dL 04/08/2025 9:51 AM EDT [facility] Sodium 136 136 - 145 mmol/L 04/08/2025 9:51 AM EDT [facility] Potassium 4.6 3.5 - 5.2 mmol/L 04/08/2025 9:51 AM EDT [facility] Chloride 102 98 - 107 mmol/L 04/08/2025 9:51 AM EDT [facility] CO2 23.5 22.0 - 29.0 mmol/L 04/08/2025 9:51 AM EDT [facility] Calcium 8.4(L) 8.6 - 10.5 mg/dL 04/08/2025 9:51 AM EDT [facility] BUN/Creatinine Ratio 19.1 7.0 - 25.0 04/08/2025 9:51 AM EDT [facility] Anion Gap 10.5 5.0 - 15.0 mmol/L 04/08/2025 9:51 AM EDT [facility] eGFR 117.0 >60.0 mL/min/1.7 3 04/08/2025 9:51 AM EDT [facility] Blood Venipuncture / Unknown 04/08/2025 8:41 AM EDT 04/08/2025 9:09 AM EDT Narrative [facility] - 04/08/2025 9:51 AM EDT [...] ORDERABLES Fi nal Result Performing Organization Address City/[facility]/ZIP Co de Phone Number [facility]
[address] [place] [address], * Heparin Anti-Xa (04/08/2025 8:41 AM EDT) Heparin Anti-Xa (UFH) 0.33 0.30 - 0.70 IU/ml 04/08/2025 9:40 AM EDT [facility] Blood Venipuncture / Unknown 04/08/2025 8:41 AM EDT 04/08/2025 9:10 AM EDT us Sushil Dean Jr., MD LAB BLOOD ORDERABLES Fi nal Result [facility]
[address] [place] [address], * FL C Arm During Surgery (04/07/2025 9:32 PM EDT) Narrative SYSTEMGENERATED, DOCUMENTATION - 04/07/2025 9:38 PM EDT This procedure was auto-finalized with no dictation required. us Sushil Dean Jr., MD IMG FLUOROSCOPY ORDERAB LES Final Result * Wound Culture - Swab, Leg, Right (04/07/2025 9:14 PM EDT) Wound Culture No growth at 3 days ALIZA 04/11/2025 10:40 AM EDT [facility] Gram Stain Occasional WBCs seen 04/11/2025 10:40 AM EDT [facility] Gram Stain No organisms seen 04/11/2025 10:40 AM EDT [facility] Swab Structure of right lower limb / Unknown Collection / Unknown 04/07/2025 9:14 PM EDT 04/08/2025 4:36 AM EDT us Sushil Dean Jr., MD MICROBIOLOGY - GENERAL ORDERABLES Final Result Performing Organization Address City/[facility]/ZIP Co de Phone Number [facility]
[address] [place] [address], [facility]
[address] [place] [address], * Anaerobic Culture - Swab, Leg, Right (04/07/2025 9:14 PM EDT) Anaerobic Culture No anaerobes isolated at 5 days ALIZA 04/13/2025 7:21 AM EDT [facility] Swab Structure of right lower limb / Unknown Collection / Unknown 04/07/2025 9:14 PM EDT 04/08/2025 4:36 AM EDT us Sushil Dean Jr., MD MICROBIOLOGY - GENERAL ORDERABLES Final Result [facility]
[address] [place] [address], * Anaerobic Culture - Tissue, Leg (04/07/2025 9:13 PM EDT) Pathologist [facility] [place] Anaerobic Culture No anaerobes isolated at 5 days ALIZA 04/13/2025 7:21 AM EDT [facility] Tissue Lower limb structure / Unknown Collection / Unknown 04/07/2025 9:13 PM EDT 04/08/2025 4:54 AM EDT Jason Álvarez DO MICROBIOLOGY - GENERAL ORDERABLE S Final Result [facility]
[address] [place] [address], * Tissue / Bone Culture - Tissue, Leg, Right (04/07/2025 9:13 PM EDT) [facility] Tissue Culture No growth at 3 days ALIZA 04/11/2025 10:36 AM EDT [facility] Gram Stain Rare (1+) WBCs seen 04/11/2025 10:36 AM EDT [facility] Gram Stain No organisms seen 04/11/2025 10:36 AM EDT [facility] Tissue Structure of right lower limb / Unknown 04/07/2025 9:13 PM EDT 04/08/2025 4:54 AM EDT Sushil Dean Jr., MD MICROBIOLOGY - GENERAL ORDERABLES Final Result [facility]
[address] [place] [address], [facility]
[address] [place] [address], * (ABNORMAL) Wound Culture - Swab, Leg, Right (04/07/2025 9:07 PM EDT) Pathologist [facility] [place] Wound Culture Light growth (2+) Staphylococcus aureus, MRSA(A) ALIZA 04/10/2025 10:38 AM EDT [facility] Comment: Methicillin resistant Staphylococcus aureus, Patient may be an isolation risk. Gram Stain Few (2+) WBCs seen 04/10/2025 10:38 AM EDT [facility] Gram Stain No organisms seen 10:38 AM EDT [facility] Swab [...] - GENERAL ORDERABLES Final Result [facility]
[address] [place] [address], [place] [phone] [facility]
[address] [place] [address], [place] [phone] * Anaerobic Culture - Swab, Leg, Right (04/07/2025 9:07 PM EDT) Anaerobic Culture No anaerobes isolated at 5 days ALIZA 04/13/2025 7:21 AM EDT [facility] Swab Structure of right lower limb / Unknown Collection / Unknown 04/07/2025 9:07 PM EDT 04/08/2025 4:36 AM EDT us Sushil Dean Jr., MD MICROBIOLOGY - GENERAL ORDERABLES Final Result [facility]
[address] [place] [address], * Heparin Anti-Xa (04/07/2025 9:10 AM EDT) [facility] Heparin Anti-Xa (UFH) 0.30 0.30 - 0.70 IU/ml 04/07/2025 10:12 AM EDT [facility] Blood Venipuncture / Unknown 04/07/2025 9:10 AM EDT 04/07/2025 9:38 AM EDT Una Perla PharmD LAB BLOOD ORDERABLES Final R esult [facility]
[address] [place] [address], * (ABNORMAL) CBC Auto Differential (04/07/2025 9:10 AM EDT) [facility] WBC 8.63 3.40 - 10.80 10*3/mm3 04/07/2025 9:50 AM EDT [facility] RBC 5.23 4.14 - 5.80 10*6/mm3 04/07/2025 9:50 AM EDT [facility] Hemoglobin 14.7 13.0 - 17.7 g/dL 04/07/2025 9:50 AM EDT [facility] Hematocrit 44.8 37.5 - 51.0 % 04/07/2025 9:50 AM EDT [facility] MCV 85.7 79.0 - 97.0 fL 04/07/2025 9:50 AM EDT [facility] MCH 28.1 26.6 - 33.0 pg 04/07/2025 9:50 AM EDT [facility] MCHC 32.8 31.5 - 35.7 g/dL 04/07/2025 9:50 AM EDT [facility] RDW 12.8 12.3 - 15.4 % 04/07/2025 9:50 AM [facility] RDW-SD 39.9 37.0 - 54.0 fl 04/07/2025 9:50 AM [facility] MPV 10.8 6.0 - 12.0 fL 04/07/2025 9:50 AM [facility] Platelets 149 140 - 450 10*3/mm3 04/07/2025 9:50 AM [facility] Neutrophil % 66.7 42.7 - 76.0 % 04/07/2025 9:50 AM [facility] Lymphocyte % 20.5 19.6 - 45.3 % 04/07/2025 9:50 AM [facility] Monocyte % 9.8 5.0 - 12.0 % 04/07/2025 9:50 AM [facility] Eosinophil % 2.1 0.3 - 6.2 % 04/07/2025 9:50 AM [facility] Basophil % 0.3 0.0 - 1.5 % 04/07/2025 9:50 AM [facility] Immature Grans % 0.6(H) 0.0 - 0.5 % 04/07/2025 9:50 AM [facility] Neutrophils, Absolute 5.75 1.70 - 7.00 10*3/mm3 04/07/2025 9:50 AM [facility] Lymphocytes, Absolute 1.77 0.70 - 3.10 10*3/mm3 04/07/2025 9:50 AM [facility] Monocytes, Absolute 0.85 0.10 - 0.90 10*3/mm3 04/07/2025 9:50 AM [facility] Eosinophils, Absolute 0.18 0.00 - 0.40 10*3/mm3 04/07/2025 9:50 AM [facility] Basophils, Absolute 0.03 0.00 - 0.20 10*3/mm3 04/07/2025 9:50 AM [facility] Immature Grans, Absolute 0.05 0.00 - 0.05 10*3/mm3 04/07/2025 9:50 AM EDT [facility] nRBC 0.0 0.0 - 0.2 /100 WBC 04/07/2025 9:50 AM EDT [facility] Blood Venipuncture / Unknown 04/07/2025 9:10 AM EDT 04/07/2025 9:38 AM EDT Jasonalfonso Álvarez LAB BLOOD ORDERABLES Final Resul t [facility]
[address] [place] [address], * (ABNORMAL) Basic Metabolic Panel (04/07/2025 9:10 AM EDT) Glucose 112(H) 65 - 99 mg/dL 04/07/2025 10:19 AM EDT [facility] BUN 13.1 6.0 - 20.0 mg/dL 04/07/2025 10:19 AM EDT [facility] Creatinine 0.77 0.76 - 1.27 mg/dL 04/07/2025 10:19 AM EDT [facility] Sodium 139 136 - 145 mmol/L 04/07/2025 10:19 AM EDT [facility] Potassium 4.2 3.5 - 5.2 mmol/L 04/07/2025 10:19 AM EDT [facility] Comment:Specimen hemolyzed. Result may be falsely elevated. Chloride 105 98 - 107 mmol/L 04/07/2025 10:19 AM EDT [facility] CO2 24.8 22.0 - 29.0 mmol/L 04/07/2025 10:19 AM EDT [facility] Calcium 8.6 8.6 - 10.5 mg/dL 04/07/2025 10:19 AM EDT [facility] BUN/Creatinine Ratio 17.0 7.0 - 25.0 04/07/2025 10:19 AM EDT [facility] Anion Gap 9.2 5.0 - 15.0 mmol/L 04/07/2025 10:19 AM EDT [facility] eGFR 113.2 >60.0 mL/min/1.7 3 04/07/2025 10:19 AM EDT [facility] Blood Venipuncture / Unknown 04/07/2025 9:10 AM EDT 04/07/2025 9:38 AM EDT Narrative [facility] - 04/07/2025 10:19 AM [...] Álvarez LAB BLOOD ORDERABLES Final Resul t [facility]
[address] [place] [address], * MRI Tibia Fibula Right With & [...] [place] 04/07/2025 9:58 AM EDT Workstation ID: [id number] Narrative 04/07/2025 9:58 AM EDT MRI TIBIA [...] [place]rostro 04/07/2025 9:58 AM EDT Workstation ID: [id number] Sushil Dean Jr., MD IM MRI ORDERABLES Mary Beth l Result * Heparin Anti-Xa (04/07/2025 1:42 AM EDT) [facility] Heparin Anti-Xa (UFH) 0.38 0.30 - 0.70 IU/ml 04/07/2025 2:14 AM EDT [facility] Blood Venipuncture / Unknown 04/07/2025 1:42 AM EDT 04/07/2025 1:54 AM EDT Chelsie Turpin [facility] LAB BLOOD ORDERABLES Final R esult [facility]
[address] [place] [address], * Heparin Anti-Xa (04/06/2025 7:16 PM EDT) [facility] Heparin Anti-Xa (UFH) 0.33 0.30 - 0.70 IU/ml 04/06/2025 7:50 PM EDT [facility] Blood Venipuncture / Unknown 04/06/2025 7:16 PM EDT 04/06/2025 7:35 PM EDT Cherri Beatty RP LAB BLOOD ORDERABLES Final Res ult Performing Organization Address City/[facility]/ZIP Co de Phone Number [facility]
[address] [place] [address], * Potassium (04/06/2025 7:16 PM EDT) Potassium 4.0 3.5 - 5.2 mmol/L 04/06/2025 7:53 PM EDT [facility] Blood Venipuncture / Unknown 04/06/2025 7:16 PM EDT 04/06/2025 7:35 PM EDT Jason Álvarez DO LAB BLOOD ORDERABLES Final Resul t Performing Organization Address [facility] de Phone Number [facility]
[address] [place] [address], * (ABNORMAL) Heparin Anti-Xa (04/06/2025 12:36 PM EDT) Heparin Anti-Xa (UFH) 0.24(L) 0.30 - 0.70 IU/ml 04/06/2025 1:23 PM EDT [facility] Blood Venipuncture / Unknown 04/06/2025 12:36 PM EDT 04/06/2025 1:07 PM EDT Una LundbergD LAB BLOOD ORDERABLES Final R esult Performing Organization Address [facility] Co de Phone Number [facility]
[address] [place] [address], * (ABNORMAL) Heparin Anti-Xa (04/06/2025 3:42 AM EDT) Heparin Anti-Xa (UFH) 0.25(L) 0.30 - 0.70 IU/ml 04/06/2025 5:30 AM EDT [facility] Blood Venipuncture / Unknown 04/06/2025 3:42 AM EDT 04/06/2025 4:59 AM EDT Chelsie Turpin [facility] LAB BLOOD ORDERABLES Final R esult [facility]
[address] [place] [address], * (ABNORMAL) Basic Metabolic Panel (04/06/2025 3:42 AM EDT) Pathologist [facility] Glucose 94 65 - 99 mg/dL 04/06/2025 5:59 AM EDT [facility] BUN 12.8 6.0 - 20.0 mg/dL 04/06/2025 5:59 AM EDT [facility] Creatinine 0.80 0.76 - 1.27 mg/dL 04/06/2025 5:59 AM EDT [facility] Sodium 138 136 - 145 mmol/L 04/06/2025 5:59 AM EDT [facility] Potassium 3.6 3.5 - 5.2 mmol/L 04/06/2025 5:59 AM EDT [facility] Chloride 103 98 - 107 mmol/L 04/06/2025 5:59 AM EDT [facility] CO2 24.2 22.0 - 29.0 mmol/L 04/06/2025 5:59 AM EDT [facility] Calcium 8.0(L) 8.6 - 10.5 mg/dL 04/06/2025 5:59 AM EDT [facility] BUN/Creatinine Ratio 16.0 7.0 - 25.0 04/06/2025 5:59 AM EDT [facility] Anion Gap 10.8 5.0 - 15.0 mmol/L 04/06/2025 5:59 AM EDT [facility] eGFR 111.9 >60.0 mL/min/1.7 3 04/06/2025 5:59 AM EDT [facility] Blood Venipuncture / Unknown 04/06/2025 3:42 AM EDT 04/06/2025 5:20 AM EDT [facility] - 04/06/2025 5:59 AM EDT GFR [...] DO LAB BLOOD ORDERABLES Final Resul t [facility]
[address] [place] [address], * (ABNORMAL) CBC Auto Differential (04/06/2025 3:41 AM EDT) WBC 10.86(H) 3.40 - 10.80 10*3/mm3 04/06/2025 5:04 AM EDT [facility] RBC 5.08 4.14 - 5.80 10*6/mm3 04/06/2025 5:04 AM EDT [facility] Hemoglobin 13.9 13.0 - 17.7 g/dL 04/06/2025 5:04 AM EDT [facility] Hematocrit 43.7 37.5 - 51.0 % 04/06/2025 5:04 AM EDT [facility] MCV 86.0 79.0 - 97.0 fL 04/06/2025 5:04 AM [facility] MCH 27.4 26.6 - 33.0 pg 04/06/2025 5:04 AM [facility] MCHC 31.8 31.5 - 35.7 g/dL 04/06/2025 5:04 AM [facility] RDW 12.8 12.3 - 15.4 % 04/06/2025 5:04 AM [facility] RDW-SD 40.0 37.0 - 54.0 fl 04/06/2025 5:04 AM [facility] MPV 11.7 6.0 - 12.0 fL 04/06/2025 5:04 AM [facility] Platelets 115(L) 140 - 450 10*3/mm3 04/06/2025 5:04 AM [facility] Neutrophil % 65.3 42.7 - 76.0 % 04/06/2025 5:04 AM [facility] Lymphocyte % 20.5 19.6 - 45.3 % 04/06/2025 5:04 AM [facility] Monocyte % 11.8 5.0 - 12.0 % 04/06/2025 5:04 AM [facility] Eosinophil % 1.8 0.3 - 6.2 % 04/06/2025 5:04 AM [facility] Basophil % 0.3 0.0 - 1.5 % 04/06/2025 5:04 AM [facility] Immature Grans % 0.3 0.0 - 0.5 % 04/06/2025 5:04 AM [facility] Neutrophils, Absolute 7.09(H) 1.70 - 7.00 10*3/mm3 04/06/2025 5:04 AM [facility] Lymphocytes, Absolute 2.23 0.70 - 3.10 10*3/mm3 04/06/2025 5:04 AM [facility] Monocytes, Absolute 1.28(H) 0.10 - 0.90 10*3/mm3 04/06/2025 5:04 AM EDT [facility] Eosinophils, Absolute 0.20 0.00 - 0.40 10*3/mm3 04/06/2025 5:04 AM EDT [facility] Basophils, Absolute 0.03 0.00 - 0.20 10*3/mm3 04/06/2025 5:04 AM EDT [facility] Immature Grans, Absolute 0.03 0.00 - 0.05 10*3/mm3 04/06/2025 5:04 AM EDT [facility] nRBC 0.0 0.0 - 0.2 /100 WBC 04/06/2025 5:04 AM EDT [facility] Blood Venipuncture / Unknown 04/06/2025 3:41 AM EDT 04/06/2025 4:58 AM EDT Jason Álvarez DO LAB BLOOD ORDERABLES Final Resul t Performing Organization Address City/[facility]/ZIP Co de Phone Number [facility]
[address] [place] [address], [place] [phone] * Heparin Anti-Xa (04/05/2025 8:43 PM EDT) [facility] Heparin Anti-Xa (UFH) 0.38 0.30 - 0.70 IU/ml 04/05/2025 9:09 PM EDT [facility] Blood Venipuncture / Unknown 04/05/2025 8:43 PM EDT 04/05/2025 8:55 PM EDT us Cherri Beatty [facility] LAB BLOOD ORDERABLES Final Res ult Performing Organization Address City/[facility]/ZIP Co de Phone Number [facility]
[address] [place] [address], [place] [phone] * CK (04/05/2025 12:15 PM EDT) Pathologist [facility] Creatine Kinase 140 20 - 200 U/L 04/05/2025 1:31 PM EDT [facility] Blood Venipuncture / Unknown 04/05/2025 12:15 PM EDT 04/05/2025 1:03 PM EDT Carlton Mead MD LAB BLOOD ORDERABLES Final R esult Performing Organization Address City/[facility]/ZIP Co de Phone Number [facility]
[address] [place] [address], * (ABNORMAL) Heparin Anti-Xa (04/05/2025 12:15 PM EDT) Heparin Anti-Xa (UFH) 0.17(L) 0.30 - 0.70 IU/ml 04/05/2025 1:21 PM EDT [facility] Blood Venipuncture / Unknown 04/05/2025 12:15 PM EDT 04/05/2025 1:04 PM EDT Una Perla PharmD LAB BLOOD ORDERABLES Final R esult [facility]
[address] [place] [address], * (ABNORMAL) aPTT (04/05/2025 3:54 AM EDT) PTT 35.3(L) 60.0 - 90.0 seconds 04/05/2025 4:31 AM EDT [facility] Blood Venipuncture / Unknown 04/05/2025 3:54 AM EDT 04/05/2025 4:15 AM EDT Narrative [facility] - 04/05/2025 4:31 AM EDT PTT = The equivalent PTT values for the therapeutic range of heparin levels at 0.3 to 0.5 U/ml are 60 to 70 seconds. Una Perla PharmD LAB BLOOD ORDERABLES Final R esult [facility]
[address] [place] [address], * Heparin Anti-Xa (04/05/2025 3:54 AM EDT) Pathologist [facility] Heparin Anti-Xa (UFH) 0.30 0.30 - 0.70 IU/ml 04/05/2025 4:32 AM EDT [facility] Blood Venipuncture / Unknown 04/05/2025 3:54 AM EDT 04/05/2025 4:15 AM EDT Una KizoomD LAB BLOOD ORDERABLES Final R esult Performing Organization Address City/[facility]/ZIP Co de Phone Number [facility]
[address] [place] [address], * (ABNORMAL) CBC Auto Differential (04/05/2025 3:54 AM EDT) Pathologist [facility] WBC 11.18(H) 3.40 - 10.80 10*3/mm3 04/05/2025 4:20 AM EDT [facility] RBC 5.00 4.14 - 5.80 10*6/mm3 04/05/2025 4:20 AM EDT [facility] Hemoglobin 13.9 13.0 - 17.7 g/dL 04/05/2025 4:20 AM EDT [facility] Hematocrit 42.4 37.5 - 51.0 % 04/05/2025 4:20 AM EDT [facility] MCV 84.8 79.0 - 97.0 fL 04/05/2025 4:20 AM EDT [facility] MCH 27.8 26.6 - 33.0 pg 04/05/2025 4:20 AM EDT [facility] MCHC 32.8 31.5 - [...] [facility] Lymphocyte % 14.0(L) 19.6 - 45.3 % 04/05/2025 4:20 AM [facility] Monocyte % 11.0 5.0 - 12.0 % 04/05/2025 4:20 AM [facility] Eosinophil % 0.8 0.3 - 6.2 % 04/05/2025 4:20 AM [facility] Basophil % 0.3 0.0 - 1.5 % 04/05/2025 4:20 AM [facility] Immature Grans % 0.4 0.0 - 0.5 % 04/05/2025 4:20 AM [facility] Neutrophils, Absolute 8.23(H) 1.70 - 7.00 10*3/mm3 04/05/2025 4:20 AM [facility] Lymphocytes, Absolute 1.56 0.70 - 3.10 10*3/mm3 04/05/2025 4:20 AM [facility] Monocytes, Absolute 1.23(H) 0.10 - 0.90 10*3/mm3 04/05/2025 4:20 AM [facility] Eosinophils, Absolute 0.09 0.00 - 0.40 10*3/mm3 04/05/2025 4:20 AM [facility] Basophils, Absolute 0.03 0.00 - 0.20 10*3/mm3 04/05/2025 4:20 AM EDT [facility] Immature Grans, Absolute 0.04 0.00 - 0.05 10*3/mm3 04/05/2025 4:20 AM EDT [facility] nRBC 0.0 0.0 - 0.2 /100 WBC 04/05/2025 4:20 AM EDT [facility] Blood Venipuncture / Unknown 04/05/2025 3:54 AM EDT 04/05/2025 4:16 AM EDT Una Perla PharmD LAB BLOOD ORDERABLES Final R esult [facility]
[address] [place] [address], * (ABNORMAL) Basic Metabolic Panel (04/05/2025 3:54 AM EDT) Glucose 152(H) 65 - 99 mg/dL 04/05/2025 4:40 AM EDT [facility] BUN 17.3 6.0 - 20.0 mg/dL 04/05/2025 4:40 AM EDT [facility] Creatinine 0.92 0.76 - 1.27 mg/dL 04/05/2025 4:40 AM EDT [facility] Sodium 136 136 - 145 mmol/L 04/05/2025 4:40 AM EDT [facility] Potassium 3.9 3.5 - 5.2 mmol/L 04/05/2025 4:40 AM EDT [facility] Chloride 103 98 - 107 mmol/L 04/05/2025 4:40 AM EDT [facility] CO2 24.0 22.0 - 29.0 mmol/L 04/05/2025 4:40 AM EDT [facility] Calcium 7.8(L) 8.6 - 10.5 mg/dL 04/05/2025 4:40 AM EDT [facility] BUN/Creatinine Ratio 18.8 7.0 - 25.0 04/05/2025 4:40 AM EDT [facility] Anion Gap 9.0 5.0 - 15.0 mmol/L 04/05/2025 4:40 AM EDT [facility] eGFR 105.2 >60.0 mL/min/1.7 3 04/05/2025 4:40 AM EDT [facility] Blood Venipuncture / Unknown 04/05/2025 3:54 AM EDT 04/05/2025 4:15 AM EDT [facility] - 04/05/2025 4:40 AM EDT GFR [...] MD LAB BLOOD ORDERABLES Final Re sult [facility]
[address] [place] [address], * (ABNORMAL) aPTT (04/05/2025 12:18 AM EDT) PTT 33.6(L) 60.0 - 90.0 seconds 04/05/2025 12:53 AM EDT [facility] Blood Venipuncture / Unknown 04/05/2025 12:18 AM EDT 04/05/2025 12:37 AM EDT [facility] - 04/05/2025 12:53 AM EDT PTT = The equivalent PTT values for the therapeutic range of heparin levels at 0.3 to 0.5 U/ml are 60 to 70 seconds. Nirvaha PharmD LAB BLOOD ORDERABLES Final R esult Performing Organization Address City/[facility]/ZIP Co de Phone Number [facility]
[address] [place] [address], * (ABNORMAL) Protime-INR (04/05/2025 12:18 AM EDT) Protime 15.9(H) 12.2 - 15.3 Seconds 04/05/2025 12:53 AM EDT [facility] INR 1.19(H) 0.89 - 1.12 04/05/2025 12:53 AM EDT [facility] Blood Venipuncture / Unknown 04/05/2025 12:18 AM EDT 04/05/2025 12:37 AM EDT Nirvaha PharmD LAB BLOOD ORDERABLES Final R esult Performing Organization Address [facility] Co de Phone Number [facility]
[address] [place] [address], * Heparin Anti-Xa (04/05/2025 12:18 AM EDT) Pathologist [facility] Heparin Anti-Xa (UFH) 0.39 0.30 - 0.70 IU/ml 04/05/2025 12:54 AM EDT [facility] Blood Venipuncture / Unknown 04/05/2025 12:18 AM EDT 04/05/2025 12:37 AM EDT Nirvaha PharmD LAB BLOOD ORDERABLES Final R esult Performing Organization Address City/[facility]/ZIP Co de Phone Number [facility]
[address] [place] [address], * MRI Tibia Fibula Right With & [...] MD 04/04/2025 11:00 PM EDT Workstation ID: [id number] Narrative 04/04/2025 11:00 PM EDT MRI TIBIA [...] MD 04/04/2025 11:00 PM EDT Workstation ID: [id number] Leonora Shepherd MD IMG MRI ORDERABLES Final Resu lt * POC Creatinine (04/04/2025 2:49 PM EDT) Creatinine 1.10 0.60 - 1.30 mg/dL 04/07/2025 7:14 PM EDT [facility] Comment:Serial Number: [id number]: [id number] Venous Blood 04/04/2025 2:49 PM EDT 04/07/2025 7:14 PM EDT Jason Álvarez DO POINT OF CARE TEST ORDERABLES Fi nal Result [facility]
[address] [place] [address], * (ABNORMAL) CBC Auto Differential (04/04/2025 2:47 PM EDT) [facility] WBC 12.72(H) 3.40 - 10.80 10*3/mm3 04/04/2025 2:56 PM EDT [facility] RBC 5.64 4.14 - 5.80 10*6/mm3 04/04/2025 2:56 PM EDT [facility] Hemoglobin 15.3 13.0 - 17.7 g/dL 04/04/2025 2:56 PM EDT [facility] Hematocrit 47.9 37.5 - 51.0 % 04/04/2025 2:56 PM EDT [facility] MCV 84.9 79.0 - 97.0 fL 04/04/2025 2:56 PM EDT [facility] MCH 27.1 26.6 - 33.0 pg 04/04/2025 2:56 PM EDT [facility] MCHC 31.9 31.5 - 35.7 g/dL 04/04/2025 2:56 PM EDT [facility] RDW 13.1 12.3 - 15.4 % 04/04/2025 2:56 PM EDT [facility] RDW-SD 40.3 37.0 - 54.0 fl 04/04/2025 2:56 PM EDT [facility] MPV 9.4 6.0 - 12.0 fL 04/04/2025 2:56 PM EDT [facility] Platelets 232 140 - 450 10*3/mm3 04/04/2025 2:56 PM EDT [facility] Neutrophil % 74.9 42.7 - 76.0 % 04/04/2025 2:56 PM EDT [facility] Lymphocyte % 13.1(L) 19.6 - 45.3 % 04/04/2025 2:56 PM EDT [facility] Monocyte % 11.2 5.0 - 12.0 % 04/04/2025 2:56 PM EDT [facility] Eosinophil % 0.4 0.3 - 6.2 % 04/04/2025 2:56 PM EDT [facility] Basophil % 0.2 0.0 - 1.5 % 04/04/2025 2:56 PM EDT [facility] Immature Grans % 0.2 0.0 - 0.5 % 04/04/2025 2:56 PM EDT [facility] Neutrophils, Absolute 9.52(H) 1.70 - 7.00 10*3/mm3 04/04/2025 2:56 PM EDT [facility] Lymphocytes, Absolute 1.66 0.70 - 3.10 10*3/mm3 04/04/2025 2:56 PM EDT [facility] Monocytes, Absolute 1.43(H) 0.10 - 0.90 10*3/mm3 04/04/2025 2:56 PM EDT [facility] Eosinophils, Absolute 0.05 0.00 - 0.40 10*3/mm3 04/04/2025 2:56 PM EDT [facility] Basophils, Absolute 0.03 0.00 - 0.20 10*3/mm3 04/04/2025 2:56 PM EDT [facility] Immature Grans, Absolute 0.03 0.00 - 0.05 10*3/mm3 04/04/2025 2:56 PM EDT [facility] nRBC 0.0 0.0 - 0.2 /100 WBC 04/04/2025 2:56 PM EDT [facility] Blood Venipuncture / Unknown 04/04/2025 2:47 PM EDT 04/04/2025 2:52 PM EDT us Mario Crowley DO LAB BLOOD ORDERABLES Fin al Result [facility]
[address] [place] [address], * (ABNORMAL) C-reactive Protein (04/04/2025 2:47 PM EDT) C-Reactive Protein 8.57(H) 0.00 - 0.50 mg/dL 04/04/2025 3:26 PM EDT [facility] Blood Venipuncture / Unknown 04/04/2025 2:47 PM EDT 04/04/2025 2:52 PM EDT [facility] BLOOD ORDERABLES Fin al Result Performing Organization Address City/[facility]/ZIP Co de Phone Number [facility]
[address] [place] [address], * (ABNORMAL) Sedimentation Rate (04/04/2025 2:47 PM EDT) Pathologist [facility] Sed Rate 51(H) 0 - 15 mm/hr 04/04/2025 3:06 PM EDT [facility] Blood Venipuncture / Unknown 04/04/2025 2:47 PM EDT 04/04/2025 2:52 PM EDT [facility] BLOOD [facility]LES Fin al Result Performing Organization Address City/[facility] Co de Phone Number [facility]
[address] [place] [address], * Comprehensive Metabolic Panel (04/04/2025 2:47 PM EDT) Pathologist [facility] [place] Glucose 90 65 - 99 mg/dL 04/04/2025 3:26 PM EDT [facility] BUN 18.3 6.0 - 20.0 mg/dL 04/04/2025 3:26 PM EDT [facility] Creatinine 0.94 0.76 - 1.27 mg/dL 04/04/2025 3:26 PM EDT [facility] Sodium 136 136 - 145 mmol/L 04/04/2025 3:26 PM EDT [facility] Potassium 3.8 3.5 - 5.2 mmol/L 04/04/2025 3:26 PM EDT [facility] Chloride 100 98 - 107 mmol/L 04/04/2025 3:26 PM EDT [facility] CO2 25.3 22.0 - 29.0 mmol/L 04/04/2025 3:26 PM EDT [facility] Calcium 8.6 8.6 - 10.5 mg/dL 04/04/2025 3:26 PM T [facility] Total Protein 7.3 6.0 - 8.5 g/dL 04/04/2025 3:26 PM EDT [facility] Albumin 4.1 3.5 - 5.2 g/dL 04/04/2025 3:26 PM T [facility] ALT (SGPT) 26 1 - 41 U/L 04/04/2025 3:26 PM [facility] AST (SGOT) 25 1 - 40 U/L 04/04/2025 3:26 PM T [facility] Alkaline Phosphatase 106 39 - 117 U/L 04/04/2025 3:26 PM T [facility] Total Bilirubin 1.0 0.0 - 1.2 mg/dL 04/04/2025 3:26 PM T [facility] Globulin 3.2 gm/dL 04/04/2025 3:26 PM [facility] Comment:Calculated Result A/G Ratio 1.3 g/dL 04/04/2025 3:26 PM [facility] BUN/Creatinine Ratio 19.5 7.0 - 25.0 04/04/2025 3:26 PM [facility] Anion Gap 10.7 5.0 - 15.0 mmol/L 04/04/2025 3:26 PM [facility] eGFR 102.5 >60.0 mL/min/1.7 3 04/04/2025 3:26 PM [facility] Blood Venipuncture / Unknown 04/04/2025 2:47 PM EDT 04/04/2025 2:52 PM EDT [facility] - 04/04/2025 3:26 PM [...] DO LAB BLOOD ORDERABLES Fin al Result [facility]
[address] [place] [address], documented in this encounter Visit Diagnoses Diagnosis [...] BPA Driven Protocol Open Order & Select [facility] Electrolyte Replacement Protocol Algorithm to View [...] BPA Driven Protocol Open Order & [facility] Electrolyte Replacement Protocol Algorithm to View [...] Salazar, KELL)1943 (Given - Provider: Anahy Marcelino, STATE ATTORNEY)2129 (Canceled Entry - Provider: Anahy Marcelino STATE ATTORNEY - Comment: previously given) 0837 (Given [...] Mon04/05/25 at 0900 0907 (Given - Provider: Sihrley Hart RN) 905 (Given - Provider: Shirley [...] Continuous Medication Order 04/09/2025 04/10/2025 04/11/2025 heparin 63611 units/250 mL (100 units/mL) in 0.45 % [...] BPA Driven Protocol Open Order & [facility] Electrolyte Replacement Protocol Algorithm to View [...] documented as of this encounter Care Teams Product Management Internship Relationship Specialty Start Date End Date Provider, [place] [address] PCP - General 05/09/23 documented as of this encounter
--- OUTSIDE RECORDS SUMMARY | 2025-04-07 20:36 | XMS_ITS | Encounter Summary ---
Author Organization [facility] Address [address] [place] [address] Care Team Providers Care Culinary Internship Name Role Phone Provider, No Known Primary Care Provider Unavail able Reason for Visit * Auth/Cert Specialty Diagnoses / Procedures Referred By Bulmaro muniz Referred To Contact Diagnoses Right BKA infection Referral ID Status Reason Start Date Expiration Date Visits Re quested Visits Authorized [id number] 1 1 Encounter Details Date Type Department Care Team (Late st Contact Info) Description 04/07/2025 8:36 PM EDT Anesthesia Event [facility] OR [address] [place] [address] Luci Alonso DO [address] [place] [address] Anesthesia Record Procedure Summary Procedure Name Responsible [...] = 0.6 oz pur e alcohol) [facility] Utilities Answer Date Recorded In the past 12 months has [employer], gas, oil, or water [employer] threatened to shut off services in your [...] or training? Not on file Preferred Language Burkinan 04/07/2025 Sex and Gender Information Value Date [...] PACU on O2NC, breathing comfortably. Report to RESIDENTIAL ADVISOR at bedside. VSS. 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 ) intravenous induction Anesthetic plan, risks, benefits, and alternatives have been provided, discussed and informed consent has been obtained with: patient. Plan discussed with TENON 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. CODE STATUS: Code Status (Patient [...] Staff Patient location during procedure: OR Anesthesiologist: Lcui Alonso DO Indications and Patient Condition Indications [...] documented as of this encounter Care Teams Culinary Internship Relationship Specialty Start Date End Date Provider, No Known [facility] [place] [address] PCP - General 05/09/23 documented as of this encounter
--- OUTSIDE RECORDS SUMMARY | 2025-04-08 14:45 | XMS_ITS | Encounter Summary ---
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 Name Role Phone Provider, No Known Primary Care Provider Unavail able Reason for Visit * Reason Comments Leg Swelling * Auth/Cert Specialty Diagnoses / Procedures Referred By Contac t Referred To Contact Diagnoses Right BKA infection Referral ID Status Reason Start Date Expiration Date Visits Re quested Visits Authorized [id number] 1 1 Encounter Details Date Type Department Care Team (Late st Contact Info) Description 04/08/2025 2:45 PM EDT - 04/08/2025 4:04 PM EDT Surgery [facility] OR [address] [place] [address] Sushil Dean Jr., MD [address] [place] [address] [address] [id number] LEG DEBRIDEMENT AND IRRIGATION Social History Tobacco Use Types Packs/Day Years Used Date Smoking Tobacco: Never Smokeless Tobacco: Never Tobacco Cessation:Counseling Given: Not Answered Alcohol Use Standard Drinks/Week Comments Not Currently 0 (1 standard drink = 0.6 oz pur e alcohol) [facility] Utilities Answer Date Recorded In the past 12 months has iPayment electric, gas, oil, or water company threatened [...] 2:25 PM EDT Cherri Grimm RN * [place] Suicide Severity Rating Scale (Screener/Recent Self-Report) Question [...] from the original note were not included. [facility] Medicine Services DISCHARGE SUMMARY Patient [...] Date/Time Wound Culture - Swab, Leg, Right [[id number]] (Abnormal) (Susceptibility) Collected: 04/07/252106 Lab Status: Final [...] Units Date/Time FL C Arm During Surgery [[id number]] Resulted: 04/07/252137 Updated: 04/07/252137 Narrative: This procedure was auto-finalized with no dictation required. MRI Tibia Fibula Right With & Without Contrast [[id number]] Collected: 04/07/25 0938 Updated: 04/07/25 1001 Narrative: [...] Buenrostro 04/07/2025 9:58 AM EDT Workstation ID: [id number] MRI Tibia Fibula Right With & Without Contrast [[id number]] Collected: 04/04/252256 Updated: 04/04/252302 Narrative: MRI TIBIA [...] MD 04/04/2025 11:00 PM EDT Workstation ID: [id number] Pending Labs Order Current Status Fungus Culture [...] Male) Date of 1980 Social Security Number [id number] [place] [address] [place] [address] Jehovah'S Witness Unknown Marital Status Unknown Admission Date 04/04/2025 [...] [place] [id number] Payor Plan Address Payor Plan Phone Number Payor Plan Fax Number Effective Dates [employer] [address] [address] 08/10/2023 - None Entered [facility] [address] Subscriber Name Subscriber Date Member ID WON DENNIS 1980 [id number] Emergency Contacts Lining Finisher (Rel.) Home Phone Work Phone Mobile Phone Avril Dennis (Spouse) -- -- [phone] Robert Hackett (Relative) -- -- [phone] [facility] 5G [address] [facility] [address] Patient: ROOM: [facility] Won Dennis [address] [place] [address] : 1980 SSN: [id number] Sex: M PCP: Provider, No Known Emergency Contact Information Name Relation Home Work Mobile Avril Dennis Spouse [phone] Other Contacts Name Relation Home Work Mobile Robert Hackett Relative [phone] INSURANCE PAYOR PLAN GROUP # SUBSCRIBER ID Primary: Secondary: MEDICARE [employer] [id number] Admitting Diagnosis: Right BKA infection [T87.43] Order Date: Apr 09, 2025 Case Management Hand Zipper Trimmer Consult (Order ID: [id number]) Diagnosis: Priority: Routine Expected Date: Expiration Date: [...] INFECTIOUS DISEASE Progress Note Won Dennis 1980 [id number] Date of Consult: 04/10/2025 Admission Date: 04/04/2025 [...] Jr., MD, 20 mg at 04/09/25906 heparin 46103 units/250 mL (100 units/mL) in 0.45 % [...] Units Date/Time FL C Arm During Surgery [[id number]] Resulted: 04/07/252137 Updated: 04/07/252137 Narrative: This procedure was auto-finalized with no dictation required. MRI Tibia Fibula Right With & Without Contrast [[id number]] Collected: 04/07/2538 Updated: 04/07/25 1001 Narrative: MRI [...] Buenrostro 04/07/2025 9:58 AM EDT Workstation ID: [id number] Impression: Recurrent Right BKA stump abscess/cellulitis- this [...] Time: 04/10/251323 Signed Expand All [facility] Medicine Services PROGRESS NOTE Patient Name: [...] Date/Time Wound Culture - Swab, Leg, Right [[id number]] (Abnormal) (Susceptibility) Collected: 04/07/252106 Lab Status: Final [...] Row Name 04/06/25 1143 Sit-Stand Transfer Sit-Stand [place] (Transfers) modified independence - Comment, (Sit-Stand Transfer) Pt stood from recliner. Not holding onto walker, pt able to pull his pants up while balancing on his one leg. -LM Row Name 04/06/25 1143 Gait/Stairs (Locomotion) [place] Level (Gait) modified independence - Distance in [...] bilateral lower extremity ROM WFL -LM [facility] Name 04/06/25 1145 Strength Comprehensive (MMT) General Manual Muscle Testing (MMT) Assessment no strength deficits identified BLEs -LM [facility] Name 04/06/25 1145 Balance Balance Assessment sitting [...] at d/c. PT signing off. -LM [facility] Name 04/06/25 1146 Therapy Assessment/Plan (PT) Criteria for Skilled Interventions Met (PT) no;no problems identified which require skilled intervention -LM Therapy Frequency (PT) evaluation only -LM Predicted Duration of Therapy Intervention (PT) Eval Only -LM [facility] Name 04/06/25 1146 Vital Signs Pretreatment Heart Rate (beats/min) 86 -LM Posttreatment Heart Rate (beats/min) 96 -LM Pre SpO2 (%) 95 -LM O2 Delivery Pre Treatment room air -LM Post SpO2 (%) 96 -LM O2 Delivery Post Treatment room air -LM Pre Patient Position Sitting -LM Post Patient Position Sitting -LM [facility] Name 04/06/25 1146 Positioning and Restraints Pre-Treatment [...] Nurse Physical Therapy Education Title: PT OT PLSQL DEVELOPER Therapies (Done) Topic: Physical Therapy (Done) Point: Mobility training (Done) Learning Progress Summary Patient Acceptance, E, VU,DU by at 04/06/2025 1147 Point: Precautions (Done) Learning Progress Summary Patient Acceptance, E, VU,DU by at 04/06/2025 1147 User Cabrera Initials Effective Dates Name Provider Type [facility] 01/24/25 - Susan Cavazos, PT Physical [...] Description Service Date Service Provider Modifiers Qty [id number] PT EVAL LOW COMPLEXITY 3 04/06/2025 Susan [...] mg Daily 04/05/2025 -- Route: Oral heparin 72293 units/250 mL (100 units/mL) in 0.45 % [...] Dean MD April 21 vs April 22 [facility] [address], [address] [facility], [address] Please schedule at [phone] VONDA Garcia 04/11/25 08:32 EDT Cosigned by Sushil Dean Jr., MD at 04/19/2025 10:33 AM EDT Associated attestation - Sushil Dean Jr., MD - 04/19/2025 10:33 AM EDT I have reviewed this documentation and agree. * Rosario Hill APRN - 04/10/2025 1:24 PM EDT Images from the original note were not included. [facility] Medicine Services PROGRESS NOTE Patient [...] Date/Time Wound Culture - Swab, Leg, Right [[id number]] (Abnormal) (Susceptibility) Collected: 04/07/252106 Lab Status: Final [...] mg Daily 04/05/2025 -- Route: Oral heparin 70049 units/250 mL (100 units/mL) in 0.45 % [...] Dean MD April 21 vs April 22 [facility] [address] [facility], [address] [facility], [address] Please schedule at [phone] VONDA Garcia 04/10/25 09:01 EDT Cosigned by Sushil Dean Jr., MD at 04/19/2025 10:33 AM EDT Associated attestation - Sushil Dean Jr., MD - 04/19/2025 10:33 AM EDT I have reviewed this documentation and agree. * Carlton Mead MD - 04/10/2025 7:38 AM EDT Images from the original note were not included. INFECTIOUS DISEASE Progress Note Won Dennis 1980 [id number] Date of Consult: 04/10/2025 Admission Date: 04/04/2025 [...] IRRIGATION; Surgeon: Sushil Dean Jr., MD; Location: [facility] OR; Service: Orthopedics; Laterality: Right; PLACEMENT OF WOUND VAC Right 04/07/2025 Procedure: WOUND VACUUM ASSISTED CLOSURE; Surgeon: Sushil Dean Jr., MD; Location: [facility] OR; Service: Orthopedics; Laterality: Right; WOUND [...] Not Applicable, PRN, Sushil Daen Jr., MD DAPTOmycin (CUBICIN) 800 mg in [...] Jr., MD, 20 mg at 04/09/25906 heparin 75509 units/250 mL (100 units/mL) in 0.45 % [...] Units Date/Time FL C Arm During Surgery [[id number]] Resulted: 04/07/252137 Updated: 04/07/252137 Narrative: This procedure was auto-finalized with no dictation required. MRI Tibia Fibula Right With & Without Contrast [[id number]] Collected: 04/07/25937 Updated: 04/07/25 100 Narrative: MRI [...] Buenrostro 04/07/2025 9:58 AM EDT Workstation ID: [id number] Impression: Recurrent Right BKA stump abscess/cellulitis- this [...] 07:38 EDT * Larisa Hamilton [facility] - 04/10/2025 7:17 AM [...] from the original note were not included. [facility] Medicine Services PROGRESS NOTE Patient [...] Date/Time Wound Culture - Swab, Leg, Right [[id number]] (Abnormal) Collected: 04/07/252106 Lab Status: Preliminary result [...] DO 04/09/25 * Larisa Hamilton [facility] [...] mg Daily 04/05/2025 -- Route: Oral heparin 52588 units/250 mL (100 units/mL) in 0.45 % [...] in 2 weeks for incision check, radiographs [facility] [address] [facility] [address] [facility], [address] [facility], [address] Please schedule at [phone] VONDA Garcia 04/09/25 09:18 EDT Cosigned by Sushil Dean Jr., MD at 04/19/2025 10:33 AM EDT Associated attestation - Sushil Dean Jr., MD - 04/19/2025 10:33 AM EDT I have reviewed this documentation and agree. * Carlton Mead MD - 04/09/2025 8:25 AM EDT Images from the original note were not included. INFECTIOUS DISEASE Progress Note Won Dennis 1980 [id number] Date of Consult: 04/09/2025 Admission Date: 04/04/2025 [...] Dean Jr., MD; Location: [facility] OR; Service: Orthopedics; Laterality: Right; History reviewed. [...] MD, 20 mg at 04/08/25 0800 heparin 38188 units/250 mL (100 units/mL) in 0.45 % [...] Units Date/Time FL C Arm During Surgery [[id number]] Resulted: 04/07/252137 Updated: 04/07/252137 Narrative: This procedure was auto-finalized with no dictation required. MRI Tibia Fibula Right With & Without Contrast [[id number]] Collected: 04/07/25 0938 Updated: 04/07/25 1001 Narrative: [...] Chitra 04/07/2025 9:58 AM EDT Workstation ID: [id number] Impression: Recurrent Right BKA stump abscess/cellulitis- this [...] from the original note were not included. [facility] Medicine Services PROGRESS NOTE Patient [...] Buenrostro 04/07/2025 9:58 AM EDT Workstation ID: [id number] I have personally reviewed the therapy plans: [...] DO 04/08/25 * Hamilton, Larisa, [facility] - 04/08/2025 11:48 AM [...] mg Daily 04/05/2025 -- Route: Oral heparin 49331 units/250 mL (100 units/mL) in 0.45 % [...] INFECTIOUS DISEASE Progress Note Won Dennis 1980 [id number] Date of Consult: 04/08/2025 Admission Date: 04/04/2025 [...] Dean Jr., MD; Location: [facility] OR; Service: Orthopedics; Laterality: Right; PLACEMENT OF WOUND VAC Right 04/07/2025 Procedure: WOUND VACUUM ASSISTED CLOSURE; Surgeon: Sushil Dean Jr., MD; Location: [facility] OR; Service: Orthopedics; Laterality: Right; History reviewed. [...] Oral, Q6H PRN, 500 mg at 04/06/25 4534 OR acetaminophen (TYLENOL) 160 MG/5ML oral solution [...] Jr., MD, 20 mg at 04/07/25950 heparin 41225 units/250 mL (100 units/mL) in 0.45 % [...] Units Date/Time FL C Arm During Surgery [[id number]] Resulted: 04/07/252137 Updated: 04/07/252137 Narrative: This procedure was auto-finalized with no dictation required. 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 (Treated by ID in [place] [facility] Dr. Harris). Dr. Torres treated him with [...] from the original note were not included. [facility] Medicine Services PROGRESS NOTE Patient [...] Buenrostro 04/07/2025 9:58 AM EDT Workstation ID: [id number] I have personally reviewed the therapy plans: [...] Preeti 04/07/25 * Larisa Hamilton, [facility] - 04/07/2025 11:56 AM [...] INFECTIOUS DISEASE Progress Note Won Dennis 1980 [id number] Date of Consult: 04/07/2025 Admission Date: 04/04/2025 [...] MD, 20 mg at 04/06/25 0900 heparin 97911 units/250 mL (100 units/mL) in 0.45 % [...] With & Without Contrast - In process [[id number]] Resulted: 04/07/25828 Updated: 04/07/25828 This result has not been signed. Information might be incomplete. 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 (Treated by ID in [place] [facility] Dr[facility] Harris). Dr. Torres treated him with [...] mg Daily 04/05/2025 -- Route: Oral heparin 41734 units/250 mL (100 units/mL) in 0.45 % [...] from the original note were not included. [facility] Medicine Services PROGRESS NOTE Patient [...] MD 04/04/2025 11:00 PM EDT Workstation ID: [id number] I have personally reviewed the therapy plans: [...] mg Daily 04/05/2025 -- Route: Oral heparin 85376 units/250 mL (100 units/mL) in 0.45 % [...] INFECTIOUS DISEASE follow up. 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 (Treated by ID in [place] [facility] Dr[facility] Harris). Dr. Torres treated him with [...] from the original note were not included. [facility] Medicine Services PROGRESS NOTE Patient [...] MD 04/04/2025 11:00 PM EDT Workstation ID: [id number] I have personally reviewed the therapy plans: [...] from the original note were not included. [facility] Medicine Services HISTORY AND PHYSICAL [...] MD 04/04/2025 11:00 PM EDT Workstation ID: [id number] Assessment & Plan Assessment & Plan Won [...] EDTAssociated Order(s): IP CONSULT TO ORTHOPEDIC SURGERY [facility], [facility] [address] [address] Orthopedic Consult Patient: Won Dennis Date of [...] was evaluated in the emergency department in [place], was discharged with instructions for follow-up. He [...] by mouth Daily. 04/03/2025 Morning Lactobacillus-Inulin ([facility]) capsule Take 200 mg by mouth [...] MD 04/04/2025 11:00 PM EDT Workstation ID: [id number] Assessment: Right BKA infection 44-year-old male with [...] DISEASE CONSULT/INITIAL HOSPITAL VISIT Won Dennis 1980 [id number] Date of Consult: 04/05/2025 Admission Date: 04/04/2025 [...] Leonora Shepherd MD, 40 mg at 04/04/25 3612 sennosides-docusate (PERICOLACE) 8.6-50 MG per tablet 2 [...] MD, 20 mg at 04/05/25 09 heparin 49026 units/250 mL (100 units/mL) in 0.45 % [...] Leonora Shepherd MD, 10 mg at 04/04/25 0956 Pharmacy to Dose Heparin, , Not Applicable, [...] Tibia Fibula Right With & Without Contrast [[id number]] Collected: 04/04/252256 Updated: 04/04/252302 Narrative: MRI TIBIA [...] represent a small area of phlegmonous change (abvwji96 image 10) measuring approximately 1.6 cm which [...] MD 04/04/2025 11:00 PM EDT Workstation ID: [id number] Impression: 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 (Treated by ID in [place] [facility] Dr[facility] Harris). Dr. Torres treated him with [...] infection POSTOP DIAGNOSIS: Same. PROCEDURE: Right Right 10356: Secondary closure below-knee amputation SURGEON: Sushil Dean MD OPERATIVE TEAM: Console Manager: Susi Grullon RN Scrub Person: Mary Paredes Scrub Person Extra: Hortencia Toribio Other: Katt Gotti RN; Charis Neville RN ANESTHETIST: Anesthesiologist: Ulises Hoffman MD RECREATION DIRECTOR: Stan Casillas CRNA Student Nurse Mental Health Consultant: Karol Albert SRNA ANESTHESIA: Choice ESTIMATED [...] CULTURE (Canceled) Sushil Dean Jr., MD 04/08/25 2362 Description: RIGHT LEG DEEP WOUND FOR CULTURE [...] Jr., MD - 04/07/2025 9:03 PM EDT [facility], [place] [address] OPERATIVE REPORT PATIENT NAME: Won Dennis DATE OF : 1980 PREOP DIAGNOSIS: Right Right below knee amputation stump infection POSTOP DIAGNOSIS: Same. PROCEDURE: Right Right 20762: Incision and drainage of surgical site infection 52742: Debridement of skin, subcutaneous tissue, muscle 32667: Wound vacuum-assisted closure SURGEON: Sushil Dean MD OPERATIVE TEAM: Console Manager: Anum Sanchez RN Scrub Person: Hortencia Toribio; Gerald Ivey MAINTENANCE GROUNDSKEEPER: Anesthesiologist: Luci Alonso DO ANESTHESIA: General ESTIMATED [...] this chart in the absence of a liquor gallery operator. No orders to display RADIOLOGY: [x] [...] 1:30 PM EDT Continued Stay Note DENISHA Mungiua Patient Name: Won Dennis Today's Date: 04/11/2025 [...] with KELLEE and given themhis Medicare number [id number], she sent it to Admission. DEBRA spoke with Kerri, with [facility], and explained that he had Medicare A and B. However, it will not cover home infusion. It will be $64.00 a day out of packet. Patients can go to the Infusion center at [facility], and it will cover the cost as an outpatient. He will need to go there every day for infusion. They will be able to do the patients' PICC line dressing changes and lab work. DEBRA called [facility] infusion center they can accept patient and start him. He is known for their facility. The Facility will need to run it through his insurance first. CM faxed the orders over to [facility] at [phone]. CM will follow up with them tomorrow [...] 04/09/2025 2:51 PM EDT Continued Stay Note [facility] Patient Name: Won Dennis Today's Date: 04/09/2025 Admit Date: 04/04/2025 Plan: Home Discharge Plan Row Name 04/09/25 1311 Plan Plan Home Patient/Family in Agreement with Plan yes Plan Comments CM spoke with patient at bedside today. Wheelchair from [facility] is at bedside. 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 Anticipated family or friend will [...] Auto Differential (04/11/2025 3:40 AM EDT) [facility] WBC 7.87 3.40 - 10.80 10*3/mm3 04/11/2025 4:02 AM EDT [facility] RBC 4.70 4.14 - 5.80 10*6/mm3 04/11/2025 4:02 AM [facility] Hemoglobin 12.8(L) 13.0 - 17.7 g/dL 04/11/2025 4:02 AM [facility] Hematocrit 40.5 37.5 - 51.0 % 04/11/2025 4:02 AM [facility] MCV 86.2 79.0 - 97.0 fL 04/11/2025 4:02 AM [facility] MCH 27.2 26.6 - 33.0 pg 04/11/2025 4:02 AM [facility] MCHC 31.6 31.5 - 35.7 g/dL 04/11/2025 4:02 AM [facility] RDW 12.9 12.3 - 15.4 % 04/11/2025 4:02 AM [facility] RDW-SD 40.5 37.0 - 54.0 fl 04/11/2025 4:02 AM [facility] MPV 9.2 6.0 - 12.0 fL 04/11/2025 4:02 AM [facility] Platelets 267 140 - 450 10*3/mm3 04/11/2025 4:02 AM [facility] Neutrophil % 59.5 42.7 - 76.0 % 04/11/2025 4:02 AM [facility] Lymphocyte % 26.3 19.6 - 45.3 % 04/11/2025 4:02 AM [facility] Monocyte % 9.3 5.0 - 12.0 % 04/11/2025 4:02 AM [facility] Eosinophil % 4.1 0.3 - 6.2 % 04/11/2025 4:02 AM [facility] Basophil % 0.4 0.0 - 1.5 % 04/11[facility] Immature Grans % 0.4 0.0 - 0.5 % 04/11/2025 4:02 AM EDT [facility] Neutrophils, Absolute 4.69 1.70 - 7.00 10*3/mm3 04/11/2025 4:02 AM EDT [facility] Lymphocytes, Absolute 2.07 0.70 - 3.10 10*3/mm3 04/11/2025 4:02 AM EDT [facility] Monocytes, Absolute 0.73 0.10 - 0.90 10*3/mm3 04/11/2025 4:02 AM EDT [facility] Eosinophils, Absolute 0.32 0.00 - 0.40 10*3/mm3 04/11/2025 4:02 AM EDT [facility] Basophils, Absolute 0.03 0.00 - 0.20 10*3/mm3 04/11/2025 4:02 AM EDT [facility] Immature Grans, Absolute 0.03 0.00 - 0.05 10*3/mm3 04/11/2025 4:02 AM EDT [facility] nRBC 0.0 0.0 - 0.2 /100 WBC 04/11/2025 4:02 AM EDT [facility] Blood Venipuncture / Unknown 04/11/2025 3:40 AM EDT 04/11/2025 3:59 AM EDT us Sushil Dean Jr., MD LAB BLOOD ORDERABLES Fi nal Result [facility]
[address] [place] [address], * (ABNORMAL) Comprehensive Metabolic Panel (04/11/2025 3:40 AM EDT) Glucose 108(H) 65 - 99 mg/dL 04/11/2025 4:19 AM EDT [facility] BUN 12.5 6.0 - 20.0 mg/dL 04/11/2025 4:19 AM EDT [facility] Creatinine 0.68(L) 0.76 - 1.27 mg/dL 04/11/2025 4:19 AM [facility] Sodium 140 136 - 145 mmol/L 04/11/2025 4:19 AM [facility] Potassium 3.8 3.5 - 5.2 mmol/L 04/11/2025 4:19 AM [facility] Chloride 105 98 - 107 mmol/L 04/11/2025 4:19 AM [facility] CO2 28.2 22.0 - 29.0 mmol/L 04/11/2025 4:19 AM [facility] Calcium 8.2(L) 8.6 - 10.5 mg/dL 04/11/2025 4:19 AM [facility] Total Protein 6.1 6.0 - 8.5 g/dL 04/11/2025 4:19 AM [facility] Albumin 3.1(L) 3.5 - 5.2 g/dL 04/11/2025 4:19 AM [facility] ALT (SGPT) 52(H) 1 - 41 U/L 04/11/2025 4:19 AM [facility] AST (SGOT) 40 1 - 40 U/L 04/11/2025 4:19 AM [facility] Alkaline Phosphatase 99 39 - 117 U/L 04/11/2025 4:19 AM [facility] Total Bilirubin 0.2 0.0 - 1.2 mg/dL 04/11/2025 4:19 AM [facility] Globulin 3.0 gm/dL 04/11/2025 4:19 AM [facility] Comment:Calculated Result A/G Ratio 1.0 g/dL 04/11/2025 4:19 AM [facility] BUN/Creatinine Ratio 18.4 7.0 - 25.0 04/11/2025 4:19 AM [facility] Anion Gap 6.8 5.0 - 15.0 mmol/L 04/11/2025 4:19 AM [facility] eGFR 117.5 >60.0 mL/min/1.7 3 04/11/2025 4:19 AM EDT [facility] Blood Venipuncture / Unknown 04/11/2025 3:40 AM EDT 04/11/2025 3:56 AM EDT [facility] - 04/11/2025 4:19 AM [...] Result [facility]
[address] [place] [address], * (ABNORMAL) CBC Auto Differential (04/10/2025 3:46 [...] 140 - 450 10*3/mm3 04/10/2025 3:56 AM [facility] Neutrophil % 59.1 42.7 - 76.0 % 04/10/2025 3:56 AM [facility] Lymphocyte % 29.0 19.6 - 45.3 % 04/10/2025 3:56 AM [facility] [facility] Monocyte % 8.1 5.0 - 12.0 % 04/10/2025 3:56 AM [facility] Eosinophil % 3.2 0.3 - 6.2 % 04/10/2025 3:56 AM [facility] Basophil % 0.4 0.0 - 1.5 % 04/10/2025 3:56 AM [facility] Immature Grans % [...] t [facility]
[address] [place] [address], * (ABNORMAL) Basic Metabolic Panel (04/10/2025 3:46 AM EDT) Glucose 125(H) 65 - 99 mg/dL 04/10/2025 4:20 AM EDT [facility] BUN 15.9 6.0 - 20.0 mg/dL 04/10/2025 4:20 AM EDT [facility] Creatinine 0.77 0.76 - 1.27 mg/dL 04/10/2025 4:20 AM EDT [facility] Sodium 137 136 - 145 mmol/L 04/10/2025 4:20 AM EDT [facility] Potassium 3.9 3.5 - 5.2 mmol/L 04/10/2025 4:20 AM EDT [facility] Chloride 102 98 - 107 mmol/L 04/10/2025 4:20 AM EDT [facility] CO2 26.9 22.0 - 29.0 mmol/L 04/10/2025 4:20 AM EDT [facility] Calcium 7.9(L) 8.6 - 10.5 mg/dL 04/10/2025 4:20 AM EDT [facility] BUN/Creatinine Ratio 20.6 7.0 - 25.0 04/10/2025 4:20 AM EDT [facility] Anion Gap 8.1 5.0 - 15.0 mmol/L 04/10/2025 4:20 AM EDT [facility] eGFR 113.2 >60.0 mL/min/1.7 3 04/10/2025 4:20 AM EDT [facility] Blood Venipuncture / Unknown 04/10/2025 3:46 AM EDT 04/10/2025 3:52 AM EDT Narrative [facility] - 04/10/2025 [...] t [facility]
[address] [place] [address], * Heparin Anti-Xa (04/10/2025 3:46 AM EDT) Heparin Anti-Xa (UFH) 0.35 0.30 - 0.70 IU/ml 04/10/2025 4:23 AM EDT [facility] Blood Venipuncture / Unknown 04/10/2025 3:46 AM EDT 04/10/2025 3:53 AM EDT Larisa Hamilton [facility] BLOOD ORDERABLES Final R esult [facility]
[address] [place] [address], * Heparin Anti-Xa (04/09/2025 10:05 AM EDT) Pathologist [facility] Heparin Anti-Xa (UFH) 0.36 0.30 - 0.70 IU/ml 04/09/2025 11:12 AM EDT [facility] Blood Venipuncture / Unknown 04/09/2025 10:05 AM EDT 04/09/2025 10:47 AM EDT Larisa Hamilton [facility] BLOOD ORDERABLES Final R esult [facility]
[address] [place] [address], * (ABNORMAL) CBC Auto Differential (04/09/2025 4:18 [...] - 33.0 pg 04/09/2025 4:50 AM EDT [facility] MCHC 32.2 31.5 - 35.7 g/dL 04/09/2025 4:50 AM EDT [facility] RDW 12.8 12.3 - 15.4 % 04/09/2025 4:50 AM [facility] RDW-SD 39.9 37.0 - 54.0 fl 04/09/2025 4:50 AM [facility] MPV 10.0 6.0 - 12.0 fL 04/09/2025 4:50 AM [facility] Platelets 211 140 - 450 10*3/mm3 04/09/2025 4:50 AM [facility] Neutrophil % 74.8 42.7 - 76.0 % 04/09/2025 4:50 AM [facility] Lymphocyte % 15.4(L) 19.6 - 45.3 % 04/09/2025 4:50 AM [facility] Monocyte % 8.5 5.0 - 12.0 % 04/09/2025 4:50 AM [facility] Eosinophil % 0.6 0.3 - 6.2 % 04/09/2025 4:50 AM [facility] Basophil % 0.4 0.0 - 1.5 % 04/09/2025 4:50 AM [facility] Immature Grans % 0.3 0.0 - 0.5 % 04/09/2025 4:50 AM [facility] Neutrophils, Absolute 8.23(H) 1.70 - 7.00 10*3/mm3 04/09/2025 4:50 AM [facility] Lymphocytes, Absolute 1.69 0.70 - 3.10 10*3/mm3 04/09/2025 4:50 AM [facility] Monocytes, Absolute 0.94(H) 0.10 - 0.90 10*3/mm3 04/09/2025 4:50 AM [facility] Eosinophils, Absolute 0.07 [...] [facility]/ZIP Co de Phone Number [facility]
[address] [place] [address], * Heparin Anti-Xa (04/09/2025 4:18 AM EDT) Heparin Anti-Xa (UFH) 0.41 0.30 - 0.70 IU/ml 04/09/2025 4:53 AM EDT [facility] Blood Venipuncture / Unknown 04/09/2025 4:18 AM EDT 04/09/2025 4:31 AM EDT Una LundbergD LAB BLOOD ORDERABLES Final R esult [facility]
[address] [place] [address], * (ABNORMAL) Basic Metabolic Panel (04/09/2025 4:18 [...] 4:18 AM EDT 04/09/2025 4:29 AM EDT [facility] - 04/09/2025 5:33 AM [...] [facility]
[address] [place] [address], * Wound Culture - Swab, Leg, Right [...] [facility]ZIP Co de Phone Number [facility]
[address] [place] [address], [facility]
[address] [place] [address], * Anaerobic Culture - Swab, Leg, Right [...] [facility]ZIP Co de Phone Number [facility]
[address] [place] [address], * Scan Slide (04/08/2025 8:41 AM EDT) [...] esult [facility]
[address] [place] [address], * (ABNORMAL) CBC Auto Differential (04/08/2025 8:41 AM EDT) WBC 10.07 3.40 - 10.80 10*3/mm3 04/08/2025 11:02 AM EDT [facility] RBC 5.01 4.14 - 5.80 10*6/mm3 04/08/2025 11:02 AM EDT [facility] Hemoglobin 14.0 13.0 - 17.7 g/dL 04/08/2025 11:02 AM EDT [facility] Hematocrit 42.7 37.5 - 51.0 % 04/08/2025 11:02 AM EDT [facility] MCV 85.2 79.0 - 97.0 fL 04/08/2025 11:02 AM EDT [facility] MCH 27.9 26.6 - 33.0 pg 04/08/2025 11:02 AM EDT [facility] MCHC 32.8 31.5 - 35.7 g/dL 04/08/2025 11:02 AM EDT [facility] RDW 12.6 12.3 - 15.4 % 04/08/2025 11:02 AM EDT [facility] RDW-SD 38.9 37.0 - 54.0 fl 04/08/2025 11:02 AM [facility] MPV 11.0 6.0 - 12.0 fL 04/08/2025 11:02 AM [facility] Platelets 118(L) 140 - 450 10*3/mm3 04/08/2025 11:02 AM [facility] Neutrophil % 85.1(H) 42.7 - 76.0 % 04/08/2025 11:02 AM [facility] Lymphocyte % 9.3(L) 19.6 - 45.3 % 04/08/2025 11:02 AM [facility] Monocyte % 4.6(L) 5.0 - 12.0 % 04/08/2025 11:02 AM [facility] Eosinophil % 0.3 0.3 - 6.2 % 04/08/2025 11:02 AM [facility] Basophil % 0.2 0.0 - 1.5 % 04/08/2025 11:02 AM [facility] Immature Grans % 0.5 0.0 - 0.5 % 04/08/2025 11:02 AM [facility] Neutrophils, Absolute 8.57(H) 1.70 - 7.00 10*3/mm3 04/08/2025 11:02 AM [facility] Lymphocytes, Absolute 0.94 0.70 - 3.10 10*3/mm3 04/08/2025 11:02 AM [facility] Monocytes, Absolute 0.46 0.10 - 0.90 10*3/mm3 04/08/2025 11:02 AM [facility] Eosinophils, Absolute 0.03 0.00 - 0.40 10*3/mm3 04/08/2025 11:02 AM [facility] Basophils, Absolute 0.02 0.00 - 0.20 10*3/mm3 04/08/2025 11:02 AM [facility] Immature Grans, Absolute [...] [facility]
[address] [place] [address], * (ABNORMAL) Basic Metabolic Panel (04/08/2025 8:41 [...] [facility]/ZIP Co de Phone Number [facility]
[address] [place] [address], * Heparin Anti-Xa (04/08/2025 8:41 AM EDT) Heparin Anti-Xa (UFH) 0.33 0.30 - 0.70 IU/ml 04/08/2025 9:40 AM EDT [facility] Blood Venipuncture / Unknown 04/08/2025 8:41 AM EDT 04/08/2025 9:10 AM EDT Sushil Dean Jr., MD LAB BLOOD ORDERABLES Fi nal Result Performing Organization Address City/[facility]/ZIP Co de Phone Number [facility]
[address] [place] [address], * FL C Arm During Surgery (04/07/2025 [...] [facility]ZIP Co de Phone Number [facility]
[address] [place] [address], [place] [phone] [facility]
[address] [place] [address], [place] [phone] * Anaerobic Culture - Swab, Leg, Right (04/07/2025 9:14 PM EDT) Anaerobic Culture No anaerobes isolated at 5 days ALIZA 04/13/2025 7:21 AM EDT [facility] Swab Structure of right lower limb / Unknown Collection / Unknown 04/07/2025 9:14 PM EDT 04/08/2025 4:36 AM EDT us Sushil Dean Jr., MD MICROBIOLOGY - GENERAL ORDERABLES Final Result [facility]
[address] [place] [address], * Anaerobic Culture - Tissue, Leg (04/07/2025 9:13 PM EDT) Anaerobic Culture No anaerobes isolated at 5 days ALIZA 04/13/2025 7:21 AM EDT [facility] Tissue Lower limb structure / Unknown Collection / Unknown 04/07/2025 9:13 PM EDT 04/08/2025 4:54 AM EDT Jason Álvarez DO MICROBIOLOGY - GENERAL ORDERABLE S Final Result Performing Organization Address [facility] [place]/State/ZIP Co de Phone Number [facility]
[address] [place] [address], * Tissue / Bone Culture - Tissue, [...] Final Result [facility]
[address] [place] [address], [facility]
[address] [place] [address], [place] [phone] * (ABNORMAL) Wound Culture - Swab, Leg, [...] Final Result [facility]
[address] [place] [address], [place] [phone] [facility]
[address] [place] [address], [place] [phone] * Anaerobic Culture - Swab, Leg, Right [...] Result [facility]
[address] [place] [address], * Heparin Anti-Xa (04/07/2025 9:10 AM EDT) Pathologist [facility] Heparin Anti-Xa (UFH) 0.30 0.30 - 0.70 IU/ml 04/07/2025 10:12 AM EDT [facility] Blood Venipuncture / Unknown 04/07/2025 9:10 AM EDT 04/07/2025 9:38 AM EDT Una Perla PharmD LAB BLOOD ORDERABLES Final R esult Performing Organization Address City/[facility]/ZIP Co de Phone Number [facility]
[address] [place] [address], * (ABNORMAL) CBC Auto Differential (04/07/2025 9:10 AM EDT) Pathologist [facility] WBC 8.63 3.40 - 10.80 10*3/mm3 04/07/2025 9:50 AM EDT [facility] RBC 5.23 4.14 - 5.80 10*6/mm3 04/07/2025 9:50 AM EDT [facility] Hemoglobin 14.7 13.0 - 17.7 g/dL 04/07/2025 9:50 AM EDT [facility] Hematocrit 44.8 37.5 - 51.0 % 04/07/2025 9:50 AM EDT [facility] MCV 85.7 79.0 - 97.0 fL 04/07/2025 9:50 AM EDT [facility] MCH 28.1 26.6 - 33.0 pg 04/07/2025 9:50 AM EDT [facility] MCHC 32.8 31.5 - 35.7 g/dL 04/07/2025 9:50 AM EDT [facility] RDW 12.8 12.3 - 15.4 % 04/07/2025 9:50 AM [facility] RDW-SD 39.9 37.0 - 54.0 fl 04/07/2025 9:50 AM [facility] MPV 10.8 6.0 - 12.0 fL 04/07/2025 9:50 AM [facility] Platelets 149 140 - 450 10*3/mm3 04/07/2025 9:50 AM [facility] Neutrophil % 66.7 42.7 - 76.0 % 04/07/2025 9:50 AM [facility] Lymphocyte % 20.5 19.6 - 45.3 % 04/07/2025 9:50 AM [facility] Monocyte % 9.8 5.0 - 12.0 % 04/07/2025 9:50 AM [facility] Eosinophil % 2.1 0.3 - 6.2 % 04/07/2025 9:50 AM [facility] Basophil % 0.3 0.0 - 1.5 % 04/07/2025 9:50 AM [facility] Immature Grans % 0.6(H) 0.0 - 0.5 % 04/07/2025 9:50 AM [facility] Neutrophils, Absolute 5.75 1.70 - 7.00 10*3/mm3 04/07/2025 9:50 AM [facility] Lymphocytes, Absolute 1.77 0.70 - 3.10 10*3/mm3 04/07/2025 9:50 AM [facility] Monocytes, Absolute 0.85 0.10 - 0.90 10*3/mm3 04/07/2025 9:50 AM [facility] Eosinophils, Absolute 0.18 0.00 - 0.40 10*3/mm3 04/07/2025 9:50 AM [facility] Basophils, Absolute 0.03 0.00 - 0.20 10*3/mm3 04/07/2025 9:50 AM [facility] Immature Grans, Absolute 0.05 0.00 - 0.05 10*3/mm3 04/07/2025 9:50 AM EDT [facility] nRBC 0.0 0.0 - 0.2 /100 WBC 04/07/2025 9:50 AM EDT [facility] Blood Venipuncture / Unknown 04/07/2025 9:10 AM EDT 04/07/2025 9:38 AM EDT us Jason Álvarez DO LAB BLOOD ORDERABLES Final Resul t [facility]
[address] [place] [address], * (ABNORMAL) Basic Metabolic Panel (04/07/2025 9:10 AM EDT) Glucose 112(H) 65 - 99 mg/dL 04/07/2025 10:19 AM EDT [facility] BUN 13.1 6.0 - 20.0 mg/dL 04/07/2025 10:19 AM EDT [facility] Creatinine 0.77 0.76 - 1.27 mg/dL 04/07/2025 10:19 AM EDT [facility] Sodium 139 136 - 145 mmol/L 04/07/2025 10:19 AM EDT [facility] Potassium 4.2 3.5 - 5.2 mmol/L 04/07/2025 10:19 AM EDT [facility] Comment:Specimen hemolyzed. Result may be falsely elevated. Chloride 105 98 - 107 mmol/L 04/07/2025 10:19 AM EDT [facility] CO2 24.8 22.0 - 29.0 mmol/L 04/07/2025 10:19 AM EDT [facility] Calcium 8.6 8.6 - 10.5 mg/dL 04/07/2025 10:19 AM EDT [facility] BUN/Creatinine Ratio 17.0 7.0 - 25.0 04/07/2025 10:19 AM EDT [facility] Anion Gap 9.2 5.0 - 15.0 mmol/L 04/07/2025 10:19 AM EDT [facility] eGFR 113.2 >60.0 mL/min/1.7 3 04/07/2025 10:19 AM EDT [facility] Blood Venipuncture / Unknown 04/07/2025 9:10 AM EDT 04/07/2025 9:38 AM EDT Narrative [facility] - 04/07/2025 [...] t [facility]
[address] [place] [address], * MRI Tibia Fibula Right With & [...] [place] 04/07/2025 9:58 AM EDT Workstation ID: [id number] Narrative 04/07/2025 9:58 AM EDT MRI TIBIA [...] [place] 04/07/2025 9:58 AM EDT Workstation ID: [id number] Sushil Dean Jr., MD IMG MRI ORDERABLES Mary Beth l Result * Heparin Anti-Xa (04/07/2025 1:42 AM EDT) [facility] Heparin Anti-Xa (UFH) 0.38 0.30 - 0.70 IU/ml 04/07/2025 2:14 AM EDT [facility] Blood Venipuncture / Unknown 04/07/2025 1:42 AM EDT 04/07/2025 1:54 AM EDT Chelsie Turpin [facility] LAB BLOOD ORDERABLES Final R esult [facility]
[address] [place] [address], * Heparin Anti-Xa (04/06/2025 7:16 PM EDT) [facility] Heparin Anti-Xa (UFH) 0.33 0.30 - 0.70 IU/ml 04/06/2025 7:50 PM EDT [facility] Blood Venipuncture / Unknown 04/06/2025 7:16 PM EDT 04/06/2025 7:35 PM EDT Cherri Beatty [facility] LAB BLOOD ORDERABLES Final Res ult Performing Organization Address [facility] [place]/[facility] Co de Phone Number [facility]
[address] [place] [address], * Potassium (04/06/2025 7:16 PM EDT) [facility] Potassium 4.0 3.5 - 5.2 mmol/L 04/06/2025 7:53 PM EDT [facility] Blood Venipuncture / Unknown 04/06/2025 7:16 PM EDT 04/06/2025 7:35 PM EDT Jason Álvarez DO LAB BLOOD ORDERABLES Final Resul t Performing Organization Address [facility] de Phone Number [facility]
[address] [place] [address], * (ABNORMAL) Heparin Anti-Xa (04/06/2025 12:36 PM EDT) [facility] Heparin Anti-Xa (UFH) 0.24(L) 0.30 - 0.70 IU/ml 04/06/2025 1:23 PM EDT [facility] Blood Venipuncture / Unknown 04/06/2025 12:36 PM EDT 04/06/2025 1:07 PM EDT Una Perla PharmD LAB BLOOD ORDERABLES Final R esult Performing Organization Address [facility] [place]/[facility] Co de Phone Number [facility]
[address] [place] [address], * (ABNORMAL) Heparin Anti-Xa (04/06/2025 3:42 AM EDT) [facility] Heparin Anti-Xa (UFH) 0.25(L) 0.30 - 0.70 IU/ml 04/06/2025 5:30 AM EDT [facility] Blood Venipuncture / Unknown 04/06/2025 3:42 AM EDT 04/06/2025 4:59 AM EDT Chelsie Dyana [facility] LAB BLOOD ORDERABLES Final R esult [facility]
[address] [place] [address], * (ABNORMAL) Basic Metabolic Panel (04/06/2025 3:42 AM EDT) [facility] Glucose 94 65 - 99 mg/dL 04/06/2025 5:59 AM EDT [facility] BUN 12.8 6.0 - 20.0 mg/dL 04/06/2025 5:59 AM EDT [facility] [...] - 10.5 mg/dL 04/06/2025 5:59 AM EDT [facility] BUN/Creatinine Ratio 16.0 7.0 - 25.0 04/06/2025 5:59 AM EDT [facility] Anion Gap 10.8 5.0 - 15.0 mmol/L 04/06/2025 5:59 AM EDT [facility] eGFR 111.9 >60.0 mL/min/1.7 3 04/06/2025 5:59 AM EDT [facility] Blood Venipuncture / Unknown 04/06/2025 3:42 AM EDT 04/06/2025 5:20 AM EDT [facility] - 04/06/2025 5:59 AM [...] t [facility]
[address] [place] [address], * (ABNORMAL) CBC Auto Differential (04/06/2025 3:41 [...] 26.6 - 33.0 pg 04/06/2025 5:04 AM [facility] MCHC 31.8 31.5 - 35.7 g/dL 04/06/2025 5:04 AM [facility] RDW 12.8 12.3 - 15.4 % 04/06/2025 5:04 AM [facility] RDW-SD 40.0 37.0 - 54.0 fl 04/06/2025 5:04 AM [facility] MPV 11.7 6.0 - 12.0 fL 04/06/2025 5:04 AM [facility] Platelets 115(L) 140 - 450 10*3/mm3 04/06/2025 5:04 AM [facility] Neutrophil % 65.3 42.7 - 76.0 % 04/06/2025 5:04 AM [facility] Lymphocyte % 20.5 19.6 - 45.3 % 04/06/2025 5:04 AM [facility] Monocyte % 11.8 5.0 - 12.0 % 04/06/2025 5:04 AM [facility] Eosinophil % 1.8 0.3 - 6.2 % 04/06/2025 5:04 AM [facility] Basophil % 0.3 0.0 - 1.5 % 04/06/2025 5:[facility] [address] [facility] Immature Grans % 0.3 0.0 - 0.5 % 04/06/2025 5:04 AM [facility] Neutrophils, Absolute 7.09(H) [...] [place]/[facility] Co de Phone Number [facility]
[address] [place] [address], [place] [phone] * Heparin Anti-Xa (04/05/2025 8:43 PM EDT) Pathologist [facility] Heparin Anti-Xa (UFH) 0.38 0.30 - 0.70 IU/ml 04/05/2025 9:09 PM EDT [facility] Blood Venipuncture / Unknown 04/05/2025 8:43 PM EDT 04/05/2025 8:55 PM EDT us Cherri Beatty [facility] LAB BLOOD ORDERABLES Final Res ult Performing Organization Address City/[facility] Co de Phone Number [facility]
[address] [place] [address], [place] [phone] * CK (04/05/2025 12:15 PM EDT) Creatine Kinase 140 20 - 200 U/L 04/05/2025 1:31 PM EDT [facility] Blood Venipuncture / Unknown 04/05/2025 12:15 PM EDT 04/05/2025 1:03 PM EDT Carlton Mead MD LAB BLOOD ORDERABLES Final R esult Performing Organization Address City/[facility]/ZIP Co de Phone Number [facility]
[address] [place] [address], * (ABNORMAL) Heparin Anti-Xa (04/05/2025 12:15 PM EDT) [facility] Heparin Anti-Xa (UFH) 0.17(L) 0.30 - 0.70 IU/ml 04/05/2025 1:21 PM EDT [facility] Blood Venipuncture / Unknown 04/05/2025 12:15 PM EDT 04/05/2025 1:04 PM EDT Una Prela PharmD LAB BLOOD ORDERABLES Final R esult Performing Organization Address City/[facility] Co de Phone Number [facility]
[address] [place] [address], * (ABNORMAL) aPTT (04/05/2025 3:54 AM EDT) [facility] PTT 35.3(L) 60.0 - 90.0 [...] 0.5 U/ml are 60 to 70 seconds. [employer] LAB BLOOD ORDERABLES Final R esult [facility]
[address] [place] [address], * Heparin Anti-Xa (04/05/2025 3:54 AM EDT) Pathologist [facility] Heparin Anti-Xa (UFH) 0.30 0.30 - 0.70 IU/ml 04/05/2025 4:32 AM EDT [facility] Blood Venipuncture / Unknown 04/05/2025 3:54 AM EDT 04/05/2025 4:15 AM EDT [employer] LAB BLOOD ORDERABLES Final R esult Performing Organization Address City/[facility]/ZIP Co de Phone Number [facility]
[address] [place] [address], * (ABNORMAL) CBC Auto Differential (04/05/2025 3:54 AM EDT) [facility] WBC 11.18(H) 3.40 - 10.80 [...] 31.5 - 35.7 g/dL 04/05/2025 4:20 AM [facility] RDW 12.9 12.3 - 15.4 % 04/05/2025 4:20 AM [facility] RDW-SD 39.7 37.0 - 54.0 fl 04/05/2025 4:20 AM [facility] MPV 10.2 6.0 - 12.0 fL 04/05/2025 4:20 AM [facility] Platelets 160 140 - 450 10*3/mm3 04/05/2025 4:20 AM [facility] Neutrophil % 73.5 42.7 - 76.0 % 04/05/2025 4:20 AM [facility] Lymphocyte % 14.0(L) 19.6 - 45.3 % 04/05/2025 4:20 AM [facility] Monocyte % 11.0 5.0 - 12.0 % 04/05/2025 4:20 AM [facility] Eosinophil % 0.8 0.3 - 6.2 % 04/05/2025 4:20 AM [facility] Basophil % 0.3 0.0 - 1.5 % 04/05/2025 4:20 AM [facility] Immature Grans % 0.4 0.0 - 0.5 % 04/05/2025 4:20 AM [facility] Neutrophils, Absolute 8.23(H) 1.70 - 7.00 10*3/mm3 04/05/2025 4:20 AM [facility] Lymphocytes, Absolute 1.56 0.70 - 3.10 10*3/mm3 04/05/2025 4:20 AM [facility] Monocytes, Absolute 1.23(H) 0.10 - 0.90 10*3/mm3 04/05/2025 4:20 AM [facility] Eosinophils, Absolute 0.09 0.00 - 0.40 10*3/mm3 04/05/2025 4:20 AM [facility] Basophils, Absolute 0.03 [...] esult [facility]
[address] [place] [address], * (ABNORMAL) Basic Metabolic Panel (04/05/2025 3:54 AM EDT) Glucose 152(H) 65 - 99 mg/dL 04/05/2025 4:40 AM EDT [facility] BUN 17.3 6.0 - 20.0 mg/dL 04/05/2025 4:40 AM EDT [facility] Creatinine 0.92 0.76 - 1.27 mg/dL 04/05/2025 4:40 AM EDT [facility] Sodium 136 136 - 145 mmol/L 04/05/2025 4:40 AM EDT [facility] Potassium 3.9 3.5 - 5.2 mmol/L 04/05/2025 4:40 AM EDT [facility] Chloride 103 98 - 107 mmol/L 04/05/2025 4:40 AM EDT [facility] CO2 24.0 22.0 - 29.0 mmol/L 04/05/2025 4:40 AM EDT [facility] Calcium 7.8(L) 8.6 - 10.5 mg/dL 04/05/2025 4:40 AM EDT [facility] BUN/Creatinine Ratio 18.8 7.0 - 25.0 04/05/2025 4:40 AM EDT [facility] Anion Gap 9.0 5.0 - 15.0 mmol/L 04/05/2025 4:40 AM EDT [facility] eGFR 105.2 >60.0 mL/min/1.7 3 04/05/2025 4:40 AM EDT [facility] Blood Venipuncture / Unknown 04/05/2025 3:54 AM EDT 04/05/2025 4:15 AM EDT [facility] LABORATORY - 04/05/2025 4:40 AM [...] MD LAB BLOOD ORDERABLES Final Re sult [facility]
[address] [place] [address], * (ABNORMAL) aPTT (04/05/2025 12:18 AM EDT) PTT 33.6(L) 60.0 - 90.0 seconds 04/05/2025 12:53 AM EDT [facility] Blood Venipuncture / Unknown 04/05/2025 12:18 AM EDT 04/05/2025 12:37 AM EDT [facility] LABORATORY - 04/05/2025 12:53 AM EDT PTT = The equivalent PTT values for the therapeutic range of heparin levels at 0.3 to 0.5 U/ml are 60 to 70 seconds. [employer] LAB BLOOD ORDERABLES Final R esult [facility]
[address] [place] [address], [place] [phone] * (ABNORMAL) Protime-INR (04/05/2025 12:18 AM EDT) Protime 15.9(H) 12.2 - 15.3 Seconds 04/05/2025 12:53 AM EDT [facility] INR 1.19(H) 0.89 - 1.12 04/05/2025 12:53 AM EDT [facility] Blood Venipuncture / Unknown 04/05/2025 12:18 AM EDT 04/05/2025 12:37 AM EDT [employer] LAB BLOOD ORDERABLES Final R esult Performing Organization Address [facility] [place]/[facility] Co de Phone Number [facility]
[address] [place] [address], [place] [phone] * Heparin Anti-Xa (04/05/2025 12:18 AM EDT) Pathologist [facility] Heparin Anti-Xa (UFH) 0.39 0.30 - 0.70 IU/ml 04/05/2025 12:54 AM EDT [facility] Blood Venipuncture / Unknown 04/05/2025 12:18 AM EDT 04/05/2025 12:37 AM EDT [employer] LAB BLOOD ORDERABLES Final R esult Performing Organization Address City/[facility]/ZIP Co de Phone Number [facility]
[address] [place] [address], [place] [phone] * MRI Tibia Fibula Right With & [...] MD 04/04/2025 11:00 PM EDT Workstation ID: [id number] Narrative 04/04/2025 11:00 PM EDT MRI TIBIA [...] MD 04/04/2025 11:00 PM EDT Workstation ID: [id number] Leonora Shepherd MD IMG MRI ORDERABLES Final Resu lt * POC Creatinine (04/04/2025 2:49 PM EDT) Creatinine 1.10 0.60 - 1.30 mg/dL 04/07/2025 7:14 PM EDT [facility] Comment:Serial Number: [id number] 7Operator: [id number] Venous Blood 04/04/2025 2:49 PM EDT 04/07/2025 7:14 PM EDT Jason Álvarez DO POINT OF CARE TEST ORDERABLES Fi nal Result [facility]
[address] [place] [address], [place] [phone] * (ABNORMAL) CBC Auto Differential (04/04/2025 2:47 [...] Result [facility]
[address] [place] [address], * (ABNORMAL) C-reactive Protein (04/04/2025 2:47 PM EDT) Pathologist [facility] C-Reactive Protein 8.57(H) 0.00 - 0.50 mg/dL 04/04/2025 3:26 PM EDT [facility] Blood Venipuncture / Unknown 04/04/2025 2:47 PM EDT 04/04/2025 2:52 PM EDT Mario Ortiz Keo LAB BLOOD ORDERABLES Fin al Result [facility]
[address] [place] [address], * (ABNORMAL) Sedimentation Rate (04/04/2025 2:47 PM EDT) [facility] Sed Rate 51(H) 0 - 15 mm/hr 04/04/2025 3:06 PM EDT [facility] Blood Venipuncture / Unknown 04/04/2025 2:47 PM EDT 04/04/2025 2:52 PM EDT Mario Ortiz Keo LAB BLOOD ORDERABLES Fin al Result Performing Organization Address City/[facility]/ZIP Co de Phone Number [facility]
[address] [place] [address], * Comprehensive Metabolic Panel (04/04/2025 2:47 PM EDT) [facility] Glucose 90 65 - 99 [...] - 117 U/L 04/04/2025 3:26 PM T [facility] Total Bilirubin 1.0 0.0 - 1.2 mg/dL 04/04/2025 3:26 PM EDT [facility] Globulin 3.2 gm/dL 04/04/2025 3:26 PM T [facility] Comment:Calculated Result A/G Ratio 1.3 g/dL 04/04/2025 3:26 PM EDT [facility] BUN/Creatinine Ratio 19.5 7.0 - 25.0 04/04/2025 3:26 PM T [facility] Anion Gap 10.7 5.0 - 15.0 mmol/L 04/04/2025 3:26 PM T [facility] eGFR 102.5 >60.0 mL/min/1.7 3 04/04/2025 3:26 PM [facility] Blood Venipuncture / Unknown 04/04/2025 2:47 PM EDT 04/04/2025 2:52 PM EDT Narrative [facility] - 04/04/2025 [...] Result [facility]
[address] [place] [address], documented in this encounter Visit Diagnoses Diagnosis [...] Salazar, KELL)1943 (Given - Provider: Anahy Marcelino, BAR EXAMINER)2129 (Canceled Entry - Provider: Anahy Marcelino BAR EXAMINER - Comment: previously given) 0837 (Given - [...] Infection 2026 (New Bag - Provider: Alberto Diloln RN) clotrimazole-betamethason e (LOTRISONE) 1-0.05 % cream [...] upset occurs. 09 (Given - Provider: Shirley Hatr RN)2026 (Given [...] medication prescribed for a lower pain scale. 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
--- OUTSIDE RECORDS SUMMARY | 2025-04-08 15:34 | XMS_ITS | Encounter Summary ---
Author Organization [facility] Address [address] [place] [address] Care Team Providers Care Studio Receptionist Name Role Phone Provider, No Known Primary Care Provider Unavail able Reason for Visit * Auth/Cert Specialty Diagnoses / Procedures Referred By uBlmaro muniz Referred To Contact Diagnoses Right BKA infection Referral ID Status Reason Start Date Expiration Date Visits Re quested Visits Authorized [id number] 1 1 Encounter Details Date Type Department Care Team (Late st Contact Info) Description 04/08/2025 3:34 PM EDT Anesthesia Event [facility] OR [address] [place] [address] Ulises Hoffman MD [address] [place] [address] Jairo Brooks MD [address] [place] [address] Anesthesia Record Procedure Summary Procedure Name Responsible [...] 0.6 oz pur e alcohol) [facility] Utilities Answer Date Recorded In the past 12 months has [employer] oil, or water [employer] threatened to shut off services in your [...] Date: 04/08/25 Room / Location: [facility] OR [address] [place] [address] [facility] [place] Anesthesia Start: 1533 Anesthesia Stop: [...] ROS Abdominal Substance History - negative use WARP HAULER negative tobacco stripper ROS Other Anesthesia Plan ASA 3 general [...] documented as of this encounter Care Teams Studio Receptionist Relationship Specialty Start Date End Date Provider, [place] [address] PCP - General 05/09/23 documented as of this encounter
--- OUTSIDE RECORDS SUMMARY | 2025-05-04 09:34 | XMS_ITS | Patient Health Record ---
Author Organization [facility] [address] [facility] [address] [place] [id number] Care Team Providers Care Retail Loan Originator Assistant Name Role Phone Zeeshan Salazar Primary [...] W/U Status Risk Notes Problem Essential hypertension (45668035) HTN [Hypertension] (401.9) Active confirmed appears resolved Problem Hypothyroidism (03880439) Hypothyroidism NOS (244.9) Active confirmed Problem Hyperlipidemia (15219140) Hyperlipidemia (272.4) Active confirmed Problem Constipation (48970875) Constipation, unspecified constipation type (K59.00) Active confirmed Problem History of pulmonary embolism on long-term anticoagulation therapy (78364758959994143 ) Hx pulmonary embolism (Z86.711) Active confirmed Problem Long-term current use of anticoagulant (281142215) Current use of intermodal customer service anticoagulation (Z79.01) Active confirmed Problem Adjustment disorder with anxious mood (08489829) Adjustment disorder with anxious mood (F43.22) Active confirmed Problem History of pulmonary embolus (648902591) History of pulmonary embolus (PE) (Z86.711) Active confirmed Problem Methicillin resistant Staphylococcus aureus infection (disorder) (638467456) Infection of wound due to methicillin resistant Staphylococcus aureus (MRSA) (A49.02) Active confirmed Problem Arthritis of knee (700285553) Arthritis of knee (M17.10) Active confirmed Problem Amputated below knee (126560714) 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
--- OUTSIDE RECORDS SUMMARY | 2025-05-04 09:34 | XMS_ITS | Clinical Summary ---
Author Organization [facility] Address [address] [facility] [address] [place] [address] Phone Care Team Providers Care Cellophaner Name Role Phone Unavailable Unavailable Conditions or Problems No information available. Medications No information available. Medications Administered No information available. Allergies, Adverse Reactions, Alerts No information available. Results No information available. Plan of Care No information available. Procedures No information available. Vital Signs No information available. Immunizations No information available. Advance Directives No information available.
--- OUTSIDE RECORDS SUMMARY | 2025-05-04 09:36 | XMS_ITS | Encounter Summary ---
Author Organization Healthcare Address [address] [place] [address] Care Team Providers Care Stereo Equipment Salesperson Name Role Phone Unavailable Primary Care Provider Unavailabl e Encounter Details Date Type Department Care Team (Late st Contact Info) Description 07/20/2022 Lab Requisition [facility] [address] [place] [address] Sushil Dean MD [address] [place] [address] Encounter for general adult medical examination without [...] at day 4 07/27/2022 11:32 AM EST [facility] Bone Specimen from bone / Unknown 07/20/2022 1:36 PM EST 07/20/2022 5:52 PM EST us Sushil Dean MD LAB MICROBIOLOGY - GENERAL O RDERABLES Final Result Performing Organization Address City/[facility] Co de Phone Number HEALTHCARE LAB [address] [place] [address] * Bone Culture and Gram Stain (07/20/2022 1:36 PM EST) Culture No growth at day 4 2022 9:16 AM EST [facility] Gram Stain Result Rare Polymorphonuclear leukocytes 07/24/2022 9:16 AM EST [facility] Gram Stain Result No organisms seen 07/24/2022 9:16 AM EST [facility] Bone Specimen from bone / Unknown 07/20/2022 1:36 PM EST 07/20/2022 5:52 PM EST us Sushil Dean MD LAB MICROBIOLOGY - GENERAL O RDERABLES Final Result Performing Organization Address City/[facility] Co de Phone Number HEALTHCARE LAB [address] [place] [address] documented in this encounter Visit Diagnoses Diagnosis Encounter for general adult medical examination without abnormal findings documented in this encounter
--- OUTSIDE RECORDS SUMMARY | 2025-05-04 09:36 | XMS_ITS | Encounter Summary ---
Author Organization Healthcare Address [address] [place] [address] Care Team Providers Care Database Marketing Specialist Name Role Phone Unavailable Primary Care Provider Unavailabl e Encounter Details Date Type Department Care Team (Late st Contact Info) Description 05/17/2023 Lab Requisition [facility] [address] [place] [address] Sushil Dean MD [address] [facility] [address] [place] [address] Encounter for general adult medical examination without [...] O RDERABLES Final Result Performing Organization Address City/[facility] Co de Phone Number [facility] [address] [place] [address] * Bone Culture and Gram Stain (05/17/2023 [...] O RDERABLES Final Result Performing Organization Address [facility] Co de Phone Number [facility] [address] [place] [address] documented in this encounter Visit Diagnoses Diagnosis Encounter for general adult medical examination without abnormal findings documented in this encounter
--- OUTSIDE RECORDS SUMMARY | 2025-05-04 09:36 | XMS_ITS | Encounter Summary ---
Author Organization Healthcare Address [address] [place] [address] Care Team Providers Care Cotton Inspector Name Role Phone Unavailable Primary Care Provider Unavailabl e Encounter Details Date Type Department Care Team (Late st Contact Info) Description 08/12/2022 Lab Requisition [facility] [address] [place] [address] Sushil Dean MD [address] [place] [address] Encounter for general adult medical examination without [...] has been identified using the FDA Approved [employer] CA System The organism value for this [...] Performing Organization Address City/[facility] [address]/[facility] de Phone Number HEALTHCARE LAB [address] [place] [address] * Bone Culture and Gram Stain (08/12/2022 [...] Performing Organization Address City/[facility] [address]/[facility] de Phone Number [facility] [address] [place] [address] documented in this encounter Visit Diagnoses Diagnosis Encounter for general adult medical examination without abnormal findings documented in this encounter
--- OUTSIDE RECORDS SUMMARY | 2025-05-04 09:36 | XMS_ITS | Encounter Summary ---
Author Organization Healthcare Address [address] [place] [address] Care Team Providers Care Is Consultant Name Role Phone Unavailable Primary Care Provider Unavailabl e Encounter Details Date Type Department Care Team (Late st Contact Info) Description 10/01/2022 Lab Requisition [facility] [address] [place] [address] Sushil Dean MD [address] [facility] [place] [address] Encounter for general adult medical examination without [...] has been identified using the FDA Approved Jo[employer] CA System The organism value for this [...] 10/04/2022 2:17 PM EDT Refer to culture [id number] FOR SUSCEPTIBILITIES ON NEELIMA ALBICANS us Sushil Dean MD LAB MICROBIOLOGY - GENERAL O RDERABLES Final Result [facility] [address] [place] [address] documented in this encounter Visit Diagnoses Diagnosis Encounter for general adult medical examination without abnormal findings documented in this encounter
--- OUTSIDE RECORDS SUMMARY | 2025-05-04 09:36 | XMS_ITS | Encounter Summary ---
Author Organization Healthcare Address [address] [place] [address] Care Team Providers Care Stone And Plate Preparer Apprentice Name Role Phone Unavailable Primary Care Provider Unavailabl e Encounter Details Date Type Department Care Team (Late st Contact Info) Description 10/19/2022 Lab Requisition [facility] [address] [place] [address] Sushil Dean MD [address] [place] [address] Encounter for general adult medical examination without [...] by MALDI tof mass spectrometry using the [employer] database and is for research use only. The organism value for this result has been updated. These results have been appended to the previously preliminary verified report. Bone Specimen from bone / Unknown 10/19/2022 5:17 PM EDT 10/19/2022 9:49 PM EDT Sushil Dean MD LAB MICROBIOLOGY - GENERAL O RDERABLES Final Result Performing Organization Address [facility] de Phone Number HEALTHCARE LAB [address] [place] [address] * Bone Culture and Gram Stain (10/19/2022 5:17 PM EDT) Culture No growth at day 4 2022 8:14 AM EDT [facility] Gram Stain Result Few Polymorphonuclear leukocytes 10/23/2022 8:14 AM EDT [facility] Gram Stain Result No organisms seen 10/23/2022 8:14 AM EDT [facility] Bone Specimen from bone / Unknown 10/19/2022 5:17 PM EDT 10/19/2022 9:49 PM EDT Sushil Dean MD LAB MICROBIOLOGY - GENERAL O RDERAADDI Final Result Performing Organization Address [facility] Phone Number HEALTHCARE LAB [address] [place] [address] documented in this encounter Visit Diagnoses Diagnosis Encounter for general adult medical examination without abnormal findings documented in this encounter
--- OUTSIDE RECORDS SUMMARY | 2025-05-04 09:36 | XMS_ITS | Encounter Summary ---
Author Organization [facility] Address [address] [place] [address] Care Team Providers Care Oracle Database Architect Name Role Phone Unavailable Primary Care Provider Unavailabl e Encounter Details Date Type Department Care Team (Late st Contact Info) Description 10/03/2022 Lab Requisition [facility] [address] [place] [address] Dalila Cox MD [address] [place], [place] [phone] Encounter for general adult medical examination without [...] Culture Neelima albicans(A) 10/05/2022 11:58 AM EDT [facility] Comment: This result was determined by MALDI tof Mass spectrometry. This assay was developed and its performance characteristics determined by [facility] as appropriate for clinical purposes. [...] Edited Result - Final [facility] [address] [place] [address] documented in this encounter Visit Diagnoses Diagnosis Encounter for general adult medical examination without abnormal findings documented in this encounter
--- OUTSIDE RECORDS SUMMARY | 2025-05-04 09:36 | XMS_ITS | Clinical Summary ---
Author Organization [facility] Address [address] [place] [address] Care Team Providers Care Shallot Cleaner Name [...] Taking at Discharge) Lactobacillus- Inulin ([facility]) capsule Take 200 mg by mouth [...] 3:34 PM EDT Anesthesia [place] [facility] [place] [address] [place] [phone] Ulises Hoffman MD Wells, Jeremy B., MD 04/08/2025 2:45 PM EDT - 04/08/2025 4:04 PM EDT Surgery [facility] OR [address] [place] [address] Sushil Dean Jr., MD LEG DEBRIDEMENT AND IRRIGATION 04/07/2025 8:36 PM EDT Anesthesia Event [facility] OR [address] [place] [address] Luci Alonso DO 04/07/2025 6:00 PM EDT - 04/07/2025 6:52 PM EDT Surgery [facility] OR [address] [place] [address] Sushil Dean Jr., MD LEG DEBRIDEMENT, IRRIGATION 04/04/2025 4:10 PM EDT - 04/11/2025 1:58 PM EDT Hospital Encounter [facility] 5G [address] [place] [address] Mario Crowley DO Anderson, Laurie, [...] drink = 0.6 oz pur e alcohol) [facility] Utilities Answer Date Recorded In the past 12 months has [employer], gas, oil, or water [employer] threatened to shut off services in your [...] this topic Medical Devices Implanted Type Area Health Safety Manager Device Identifier Shelf Expiration Date Model / Serial / Lot Dev Wnd/Cls Contrl Tiss Stratafix Spiral Pls Pds Ct1 0 22cm - [id number] Implanted:Qty: 1 on 04/08/2025 by Sushil Dean Jr., MD at [facility] Implant Right: Leg [employer] 12/07/2025 [id number] / / [id number] Procedures Procedure Name Priority [...] 3:4 0 PM EDT Right BKA infection [place] SEC ABDOMINAL WALL SUTURE EVISCERATION/DEHSN 04/08/2025 3:20 [...] resultswithin the time period is included. Pathologist [facility] WBC 7.87 3.40 - 10.80 10*3/mm3 04/11/2025 4:02 AM EDT [facility] RBC 4.70 4.14 - 5.80 10*6/mm3 04/11/2025 4:02 AM EDT [facility] Hemoglobin 12.8(L) 13.0 - 17.7 g/dL 04/11/2025 4:02 AM EDT [facility] Hematocrit 40.5 37.5 - 51.0 % 04/11/2025 4:02 AM EDT [facility] MCV 86.2 79.0 - 97.0 fL 04/11/2025 4:02 AM EDT [facility] MCH 27.2 26.6 - 33.0 pg 04/11/2025 4:02 AM EDT [facility] MCHC 31.6 31.5 - 35.7 g/dL 04/11/2025 4:02 AM EDT [facility] RDW 12.9 12.3 - 15.4 % 04/11/2025 4:02 AM EDT [facility] RDW-SD 40.5 37.0 - 54.0 fl 04/11/2025 4:02 AM EDT [facility] MPV 9.2 6.0 - 12.0 fL 04/11/2025 4:02 AM EDT [facility] Platelets 267 140 - 450 10*3/mm3 04/11/2025 4:02 AM EDT [facility] Neutrophil % 59.5 42.7 - 76.0 % 04/11/2025 4:02 AM EDT [facility] Lymphocyte % 26.3 19.6 - 45.3 % 04/11/2025 4:02 AM EDT [facility] Monocyte % 9.3 5.0 - 12.0 % 04/11/2025 4:02 AM [facility] Eosinophil % 4.1 0.3 - 6.2 % 04/11/2025 4:02 AM EDT [facility] Basophil % 0.4 0.0 - 1.5 % 04/11/2025 4:[facility] Immature Grans % [...] Fi nal Result [facility]
[address] [place] [address], * (ABNORMAL) Comprehensive Metabolic Panel (04/11/2025 3:40 AM EDT) Only the most recent of2 resultswithin the time period is included. Glucose 108(H) 65 - 99 mg/dL 04/11/2025 4:19 AM EDT [facility] BUN 12.5 6.0 - 20.0 mg/dL 04/11/2025 4:19 AM EDT [facility] Creatinine 0.68(L) 0.76 - 1.27 mg/dL 04/11/2025 4:19 AM EDT [facility] Sodium 140 136 - 145 mmol/L 04/11/2025 4:19 AM EDT [facility] Potassium 3.8 3.5 - 5.2 mmol/L 04/11/2025 4:19 AM EDT [facility] Chloride 105 98 - 107 mmol/L 04/11/2025 4:19 AM EDT [facility] CO2 28.2 22.0 - 29.0 mmol/L 04/11/2025 4:19 AM EDT [facility] Calcium 8.2(L) 8.6 - 10.5 mg/dL 04/11/2025 4:19 AM EDT [facility] Total Protein 6.1 6.0 - 8.5 g/dL 04/11/2025 4:19 AM EDT [facility] Albumin 3.1(L) 3.5 - 5.2 g/dL 04/11/2025 4:19 AM EDT [facility] ALT (SGPT) 52(H) 1 - 41 U/L 04/11/2025 4:19 AM EDT [facility] AST (SGOT) 40 1 - 40 U/L 04/11/2025 4:19 AM EDT [facility] Alkaline Phosphatase 99 39 - 117 U/L 04/11/2025 4:19 AM EDT [facility] Total Bilirubin 0.2 0.0 - 1.2 mg/dL 04/11/2025 4:19 AM EDT [facility] Globulin 3.0 gm/dL 04/11/2025 4:19 AM EDT [facility] Comment:Calculated Result A/G Ratio 1.0 g/dL 04/11/2025 4:19 AM EDT [facility] BUN/Creatinine Ratio 18.4 7.0 - 25.0 04/11/2025 4:19 AM EDT [facility] Anion Gap 6.8 5.0 - 15.0 mmol/L 04/11/2025 4:19 AM EDT [facility] eGFR 117.5 >60.0 [...] race as a factor us Rosario Hill VIBRATING SCREED OPERATOR LAB BLOOD ORDERABLES Final Result [facility]
[address] [place] [phone], * Heparin Anti-Xa (04/10/2025 3:46 AM EDT) Only the most recent of13 resultswithin the time period is included. Heparin Anti-Xa (UFH) 0.35 0.30 - 0.70 IU/ml 04/10/2025 4:23 AM EDT [facility] Blood Venipuncture / Unknown 04/10/2025 3:46 AM EDT 04/10/2025 3:53 AM EDT Larisa Hamilton [facility] LAB BLOOD ORDERABLES Final R esult [facility]
[address] [place] [address], * (ABNORMAL) Basic Metabolic Panel (04/10/2025 3:46 AM EDT) Only the most recent of6 resultswithin the time period is included. [facility] Glucose 125(H) 65 - [...] Resul t [facility]
[address] [place] [address], * Wound Culture - Swab, Leg, Right (04/08/2025 3:40 PM EDT) Only the most recent of3 resultswithin the time period is included. Wound Culture No growth at 3 days ALIZA 04/11/2025 10:40 AM EDT [facility] Gram Stain Few (2+) WBCs seen 04/11/2025 10:40 AM EDT [facility] Gram Stain No organisms seen 04/11/2025 10:40 AM EDT [facility] Swab Structure of right lower limb / Unknown 04/08/2025 3:40 PM EDT 04/08/2025 8:05 PM EDT Sushil Dean Jr., MD MICROBIOLOGY - GENERAL ORDERABLES Final Result Performing Organization Address City/[facility]/ZIP Co de Phone Number [facility]
[address] [place] [address], [facility]
[address] [place] [address], [place] [phone] * Anaerobic Culture - Swab, Leg, Right (04/08/2025 3:40 PM EDT) Only the most recent of4 resultswithin the time period is included. Anaerobic Culture No anaerobes isolated at 5 days ALIZA 04/13/2025 7:24 AM EDT [facility] Swab Structure of right lower limb / Unknown 04/08/2025 3:40 PM EDT 04/08/2025 8:05 PM EDT Sushil Dean Jr., MD MICROBIOLOGY - GENERAL ORDERABLES Final Result Performing Organization Address [facility] Co de Phone Number [facility]
[address] [place] [address], * Scan Slide (04/08/2025 8:41 AM EDT) [...] Performing Organization Address City/[facility]/ZIP Co de Phone Number [facility]
[address] [place] [address], [place] [phone] * FL C Arm During Surgery (04/07/2025 [...] ALIZA 04/11/2025 10:36 AM EDT [facility] Gram Stain Rare (1+) WBCs seen 04/11/2025 10:36 AM EDT [facility] Gram Stain No organisms seen 04/11/2025 10:36 AM EDT [facility] Tissue Structure of right lower limb / Unknown 04/07/2025 9:13 PM EDT 04/08/2025 4:54 AM EDT us Sushil Dean Jr., MD MICROBIOLOGY - GENERAL ORDERABLES Final Result [facility]
[address] [place] [address], [facility]
[address] [place] [address], * BH AN ETT AIRWAY (04/07/2025 8:44 [...] [place] 04/07/2025 9:58 AM EDT Workstation ID: [id number] Narrative 04/07/2025 9:58 AM EDT MRI TIBIA [...] [place] 04/07/2025 9:58 AM EDT Workstation ID: [id number] Sushil Dean Jr., MD IMG MRI ORDERABLES Mary Beth l Result * Potassium (04/06/2025 7:16 PM EDT) Potassium 4.0 3.5 - 5.2 mmol/L 04/06/2025 7:53 PM EDT [facility] Blood Venipuncture / Unknown 04/06/2025 7:16 PM EDT 04/06/2025 7:35 PM EDT Jason Álvarez DO LAB BLOOD ORDERABLES Final Resul t Performing Organization Address City/[facility]/ZIP Co de Phone Number [facility]
[address] [place] [address], * CK (04/05/2025 12:15 PM EDT) Creatine Kinase 140 20 - 200 U/L 04/05/2025 1:31 PM EDT [facility] Blood Venipuncture / Unknown 04/05/2025 12:15 PM EDT 04/05/2025 1:03 PM EDT Carlton Mead MD LAB BLOOD ORDERABLES Final R esult Performing Organization Address City/[facility]/ZIP Co de Phone Number [facility]
[address] [place] [address], * (ABNORMAL) aPTT (04/05/2025 3:54 AM EDT) [...] 0.5 U/ml are 60 to 70 seconds. [employer] LAB BLOOD ORDERABLES Final R esult Performing Organization Address City/[facility]/ZIP Co de Phone Number [facility]
[address] [place] [address], * (ABNORMAL) Protime-INR (04/05/2025 12:18 AM EDT) Pathologist [facility] Protime 15.9(H) 12.2 - 15.3 Seconds 04/05/2025 12:53 AM EDT [facility] INR 1.19(H) 0.89 - 1.12 04/05/2025 12:53 AM EDT [facility] Blood Venipuncture / Unknown 04/05/2025 12:18 AM EDT 04/05/2025 12:37 AM EDT [employer] LAB BLOOD ORDERABLES Final R esult Performing Organization Address City/[facility]/ZIP Co de Phone Number [facility]
[address] [place] [address], * POC Creatinine (04/04/2025 2:49 PM EDT) Pathologist [facility] Creatinine 1.10 0.60 - 1.30 mg/dL 04/07/2025 7:14 PM EDT [facility] Comment:Serial Number: [id number] [id number] Venous Blood 04/04/2025 2:49 PM EDT 04/07/2025 7:14 PM EDT Jason Álvarez DO POINT OF CARE TEST ORDERABLES Fi nal Result Performing Organization Address [facility] Co de Phone Number [facility]
[address] [place] [address], * (ABNORMAL) Sedimentation Rate (04/04/2025 2:47 PM EDT) Sed Rate 51(H) 0 - 15 mm/hr 04/04/2025 3:06 PM EDT [facility] Blood Venipuncture / Unknown 04/04/2025 2:47 PM EDT 04/04/2025 2:52 PM EDT Mario Crowley LAB BLOOD ORDERABLES Fin al Result Performing Organization Address [facility] de Phone Number [facility]
[address] [place] [address], * (ABNORMAL) C-reactive Protein (04/04/2025 2:47 PM EDT) C-Reactive Protein 8.57(H) 0.00 - 0.50 mg/dL 04/04/2025 3:26 PM EDT [facility] Blood Venipuncture / Unknown 04/04/2025 2:47 PM EDT 04/04/2025 2:52 PM EDT Mario Crowley DO LAB BLOOD ORDERABLES Fin al Result Performing Organization Address [facility] Co de Phone Number [facility]
[address] [place] [address], from Last 3 Months Additional Health Concerns [...] Of Support Discussed With: Patient Care Teams Shallot Cleaner Relationship Specialty Start Date End Date Provider, No Known [facility] [place] [address] PCP - General 05/09/23
--- OUTSIDE RECORDS SUMMARY | 2025-05-04 09:36 | XMS_ITS | Encounter Summary ---
Author Organization [facility] Address [address] [place] [address] Care Team Providers Care Stone Product Fabricator Name Role Phone Provider, No Known Primary [...] 2:25 PM EDT Cherri Grimm RN * [place] Suicide Severity Rating Scale (Screener/Recent Self-Report) Question [...] documented as of this encounter Care Teams Stone Product Fabricator Relationship Specialty Start Date End Date Provider, No Known [facility] [place] [address] PCP - General 05/09/23 documented as of this encounter
--- OUTSIDE RECORDS SUMMARY | 2025-05-04 09:36 | XMS_ITS | Clinical Summary ---
Author Organization Healthcare Address [address] [place] [address] Care Team Providers Care Insurance Processing Clerk Name Role Phone Unavailable Primary Care [...]
--- OUTSIDE RECORDS SUMMARY | 2025-05-04 09:36 | XMS_ITS | Encounter Summary ---
Author Organization [facility] Address [address] [place] [address] Care Team Providers Care Projection Technician Name Role Phone Unavailable Primary Care Provider Unavailabl e Encounter Details Date Type Department Care Team (Late st Contact Info) Description 07/20/2022 Lab Requisition [facility] [address] [place] [address] Sushil Dean MD [address] [place] [address] Encounter for general adult medical examination without [...]
--- OUTSIDE RECORDS SUMMARY | 2025-05-04 09:36 | XMS_ITS | Encounter Summary ---
Author Organization [facility] Address [address] [place] [address] Care Team Providers Care Auto Claims Adjuster Name Role Phone Unavailable Primary Care Provider Unavailabl e Encounter Details Date Type Department Care Team (Late st Contact Info) Description 05/13/2023 Lab Requisition [facility] [address] [place] [address] Sushil Dean MD [address] [facility] [place] [address] Encounter for general adult medical examination without [...] O RDERABLES Final Result Performing Organization Address [facility] Co de Phone Number [facility] [address] [place] [address] * Anaerobic Culture (05/13/2023 9:17 AM EDT) Culture No growth at day 4 05/20/2023 10:35 AM EST [facility] Bone 05/13/2023 9:17 AM EDT 05/13/2023 1:25 PM EDT us Sushil Dean MD LAB MICROBIOLOGY - GENERAL O RDERABLES Final Result Performing Organization Address [facility] de Phone Number [facility] [address] [place] [address] * Bone Culture and Gram Stain (05/13/2023 [...] O RDERABLES Final Result Performing Organization Address [facility] de Phone Number [facility] [address] [place] [address] documented in this encounter Visit Diagnoses Diagnosis Encounter for general adult medical examination without abnormal findings documented in this encounter
[2025-05-04 09:52] VITALS: BP 111/81; PULSE 77; RESP 16; O2SAT 97
[2025-05-04] MEDS: DAPTOmycin 1,000 MG in 0.9 % SODIUM CHLORIDE 50 ML 100 MG IV (09:52)
== END 2025-05-04 11:20 | disposition home or self-care (01) ==
LOC: INF 09:31
PROVIDERS: PCP Nurse Practitioner Family; Visit Provider Internal Medicine Infectious Disease
DX: L03.115 Cellulitis of right lower limb (principal); L02.415 Cutaneous abscess of right lower limb; Z89.511 Acquired absence of right leg below knee; D68.2 Hereditary deficiency of other clotting factors; I10 Essential (primary) hypertension; E78.5 Hyperlipidemia, unspecified; F39 Unspecified mood [affective] disorder
CPT/HCPCS: 96365; J0878

== ENCOUNTER 2025-05-05 07:58 | Outpatient (CLI) | payer MEDICARE, SELFPAY ==
--- OUTSIDE RECORDS SUMMARY | 2023-12-12 05:00 | XMS_ITS ---
Author Organization Ayaka Address 1210 [facility] 36 [facility] 2C [place] [phone] Care Team Providers Care Small Animal Veterinarian Name Role Phone Zeeshan Salazar Primary Care Provider [phone] Macario Burkett [phone] REASON FOR VISIT 6 Month Check Up Encounters Encounter Location Date Provider Diagnosis [place] 1210 [facility] [address] [place] [phone] 12/12/2023 Macario Burkett Plan Of Treatment No Information Progress Notes * Won MEDRANO ZeeshanDOB: [birth year] (44 yo M)Acc No.[id number]:12/12/2023 Progress Notes Patient: Won SPANN Provider: Colleen Burkett M.D. :1980 A ge:43 Y S ex:Male Date:12/12/2023 Address:[address] [place] [address] On[id number] Pcp:Zeeshan Salazar Subjective: * Chief Complaints: * 1 . 6 Month Check Up. * Medical History: Objective: * Vitals: Assessment: Plan: * Treatment: * Images: Billing Information: * Visit Code: * Procedure Codes: * Electronic signature of Micaela Burkett MD on 05/05/2025 at 08:01 AM EDT Sign off status: Pending * Provider: Colleen Burkett M.D. Date: 12/12/2023 Generated for Nany jorgensen/Elaine/Pro on: 08:01 AM EDT
--- OUTSIDE RECORDS SUMMARY | 2025-04-04 16:10 | XMS_ITS | Encounter Summary ---
Author Organization [facility] Address [address] [place] [address] Care Team Providers Care Medical Laboratory Technologist Name Role Phone Provider, No Known Primary Care Provider Unavail able Reason for Visit * Reason Comments Leg Swelling * Auth/Cert Specialty Diagnoses / Procedures Referred By Contlevy t Referred To Contact Diagnoses Right BKA infection Referral ID Status Reason Start Date Expiration Date Visits Re quested Visits Authorized [id number] 1 1 Encounter Details Date Type Department Care Team (Late st Contact Info) Description 04/04/2025 4:10 PM EDT - 04/11/2025 1:58 PM EDT Hospital Encounter [address] [place] [address] Mario Crowley, [address] [place] [address] Leonora Shepherd MD [address] [address] Jason Álvarez DO [address] [address] Jadyn Richardson DO [address] [address] Cellulitis of right lower extremity (Primary Dx); Below-knee amputation of right lower extremity, initial encounter; Right BKA infection Discharge Disposition: Home or Self Care Social History Tobacco Use Types Packs/Day Years Used Date Smoking Tobacco: Never Smokeless Tobacco: Never Tobacco Cessation:Counseling Given: Not Answered Alcohol Use Standard Drinks/Week Comments Not Currently 0 (1 standard drink = 0.6 oz pur e alcohol) [facility] Utilities Answer Date Recorded In the past 12 months has th e [employer], gas, oil, or water company threatened to [...] or training? Not on file Preferred Language Belarusian 04/07/2025 Sex and Gender Information Value Date [...] 2:25 PM EDT Cherri Grimm RN * [place] Suicide Severity Rating Scale (Screener/Recent Self-Report) Question [...] from the original note were not included. [facility] DISCHARGE SUMMARY Patient Name: [...] Date/Time Wound Culture - Swab, Leg, Right [[id number]] (Abnormal) (Susceptibility) Collected: 04/07/252106 Lab Status: Final [...] Units Date/Time FL C Arm During Surgery [[id number]] Resulted: 04/07/252137 Updated: 04/07/252137 Narrative: This procedure was auto-finalized with no dictation required. MRI Tibia Fibula Right With & Without Contrast [[id number]] Collected: 04/07/25 0938 Updated: 04/07/25 1001 Narrative: [...] Buenrostro 04/07/2025 9:58 AM EDT Workstation ID: [id number] MRI Tibia Fibula Right With & Without Contrast [[id number]] Collected: 04/04/252256 Updated: 04/04/252302 Narrative: MRI TIBIA [...] represent a small area of phlegmonous change (jmuznx29 image 10) measuring approximately 1.6 cm which [...] MD 04/04/2025 11:00 PM EDT Workstation ID: [id number] Pending Labs Order Current Status Fungus Culture [...] capsule, Nightly Stop These Medications [facility] capsule doxycycline 100 MG tablet [...] Male) Date of 1980 Social Security Number [id number] [place] [address] Anabaptist Unknown Marital Status Unknown Admission Date 04/04/2025 Admission Type Emergency Admitting Provider Jadyn Richardson DO Attending Provider Jadyn Richardson DO Department, Room/Bed [address], S565/1 Discharge Date Discharge Disposition Discharge [...] Group [place] [id number] Payor Plan Address Payor Plan Phone Number Payor Plan Fax Number Effective Dates [employer] [address] [address] 08/10/2023 - None Entered [place] [address] Subscriber Name Subscriber Date Member ID WON DENNIS 1980 [id number] Emergency Contacts Double Needle Stitcher (Rel.) Home Phone Work Phone Mobile Phone Avril Dennis (Spouse) -- -- [phone] LewRobert (Relative) -- -- [phone] [facility] [address] Patient: ROOM: [facility] Won Dennis [address] [facility] [address] : 1980 SSN: [id number] Sex: M PCP: Provider, No Known Emergency Contact Information Name Relation Home Work Mobile Avril Dennis Spouse [phone] Other Contacts Name Relation Home Work Mobile Robert Hackett Relative [phone] INSURANCE PAYOR [employer]AN [employer] # SUBSCRIBER ID Primary: Secondary: MEDICARE [id number] Admitting Diagnosis: 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] Order Date: Apr 09, 2025 Case Management Metrology Technician Consult (Order ID: [id number]) Diagnosis: Priority: Routine Expected Date: Expiration Date: Interval: Once Count: Comments: Outpatient orders: 1. Outpatient intravenous antibiotic therapy: Daptomycin 800 mg IV daily to be supplied by [facility] 2. Home health to perform [...] INFECTIOUS DISEASE Progress Note Won Dennis 1980 [id number] Date of Consult: 04/10/2025 Admission Date: 04/04/2025 [...] prompted him to seek treatment at [facility]. He is known to Dr. Dean. He [...] wound 05/09/25. HDS, on Heparin gtt. Currently [facility] has been asked to manage the antimicrobials [...] Jr., MD, 20 mg at 04/09/25906 heparin 09391 units/250 mL (100 units/mL) in 0.45 % [...] 0.9% NS IVPB ([facility]) Ordering Provider: Mario Corwley, DO 20 mg/kg ?? 134 kg over [...] Units Date/Time FL C Arm During Surgery [[id number]] Resulted: 04/07/252137 Updated: 04/07/252137 Narrative: This procedure was auto-finalized with no dictation required. MRI Tibia Fibula Right With & Without Contrast [[id number]] Collected: 04/07/25 0938 Updated: 04/07/25 1001 Narrative: [...] Chitra 04/07/2025 9:58 AM EDT Workstation ID: [id number] Impression: Recurrent Right BKA stump abscess/cellulitis- this [...] discussed his disposition with the pharmacist at [facility] today. I will sign off Outpatient orders: 1. Outpatient intravenous antibiotic therapy: Daptomycin 800 mg IV daily to be supplied by [facility] 2. Home health to perform [...] Time: 04/10/251323 Signed Expand All Collapse All [facility] PROGRESS NOTE Patient Name: [...] Date/Time Wound Culture - Swab, Leg, Right [[id number]] (Abnormal) (Susceptibility) Collected: 04/07/252106 Lab Status: Final [...] Row Name 04/06/25 1143 Sit-Stand Transfer Sit-Stand [place] (Transfers) modified independence -LM Comment, (Sit-Stand Transfer) Pt stood from recliner. Not holding onto walker, pt able to pull his pants up while balancing on his one leg. -LM Row Name 04/06/25 1143 Gait/Stairs (Locomotion) [place] Level (Gait) modified independence -LM Distance in [...] Nurse Physical Therapy Education Title: PT OT PUBLIC HEALTH ASSISTANT Therapies (Done) Topic: Physical Therapy (Done) Point: Mobility training (Done) Learning Progress Summary Patient Acceptance, E, VU,DU by at 04/06/2025 1147 Point: Precautions (Done) Learning Progress Summary Patient Acceptance, E, VU,DU by at 04/06/2025 1147 User Caberra Initials Effective Dates Name Provider Type Discipline [...] Description Service Date Service Provider Modifiers Qty [id number] PT EVAL LOW COMPLEXITY 3 04/06/2025 Susan [...] mg Daily 04/05/2025 -- Route: Oral heparin 04753 units/250 mL (100 units/mL) in 0.45 % [...] -- Admin Instructions: Open Order & Select [facility] Electrolyte Replacement Protocol Algorithm to [...] Dean MD April 21 vs April 22 [facility] [address] [place], [address] [facility], [address] Please schedule at [phone] VONDA Garcia 04/11/25 08:32 EDT Cosigned by Sushil Dean Jr., MD at 04/19/2025 10:33 AM EDT Associated attestation - Sushil Dean Jr., MD - 04/19/2025 10:33 AM EDT I have reviewed this documentation and agree. * Rosario Hill APRN - 04/10/2025 1:24 PM EDT Images from the original note were not included. [facility] PROGRESS NOTE Patient Name: [...] Date/Time Wound Culture - Swab, Leg, Right [[id number]] (Abnormal) (Susceptibility) Collected: 04/07/252106 Lab Status: Final [...] mg Daily 04/05/2025 -- Route: Oral heparin 38870 units/250 mL (100 units/mL) in 0.45 % [...] -- Admin Instructions: Open Order & Select [facility] Electrolyte Replacement Protocol Algorithm to [...] -- Admin Instructions: Open Order & Select [facility] Electrolyte Replacement Protocol Algorithm to [...] -- Admin Instructions: Open Order & Select [facility] Electrolyte Replacement Protocol Algorithm to [...] Dean MD April 21 vs April 22 [facility] [address] [place], [address] [facility], [address] Please schedule at [phone] VONDA Garcia 04/10/25 09:01 EDT Cosigned by Sushil Dean Jr., MD at 04/19/2025 10:33 AM EDT Associated attestation - Sushil Dean Jr., MD - 04/19/2025 10:33 AM EDT I have reviewed this documentation and agree. * Carlton Mead MD - 04/10/2025 7:38 AM EDT Images from the original note were not included. INFECTIOUS DISEASE Progress Note Won Dennis 1980 [id number] Date of Consult: 04/10/2025 Admission Date: 04/04/2025 [...] prompted him to seek treatment at [facility]. He is known to Dr. Dean. He [...] wound 05/09/25. HDS, on Heparin gtt. Currently [facility] has been asked to manage the antimicrobials [...] Jr., MD, 20 mg at 04/09/25906 heparin 56714 units/250 mL (100 units/mL) in 0.45 % [...] vancomycin 2750 mg/500 mL 0.9% NS IVPB ([facility]) Ordering Provider: Mario Crowley, DO [...] Units Date/Time FL C Arm During Surgery [[id number]] Resulted: 04/07/252137 Updated: 04/07/252137 Narrative: This procedure was auto-finalized with no dictation required. MRI Tibia Fibula Right With & Without Contrast [[id number]] Collected: 04/07/25 0938 Updated: 04/07/25 1001 Narrative: [...] Buenrostro 04/07/2025 9:58 AM EDT Workstation ID: [id number] Impression: Recurrent Right BKA stump abscess/cellulitis- this [...] discussed his disposition with the pharmacist at [facility] today. I will sign off Outpatient orders: 1. Outpatient intravenous antibiotic therapy: Daptomycin 800 mg IV daily to be supplied by [facility] 2. Home health to perform [...] 04/10/2025 07:38 EDT * Yaya Hamiltonn, [facility] - 04/10/2025 7:17 AM EDT Pharmacy to Dose Heparin Infusion Note Won Dnenis is a 44 y.o. male receiving heparin [...] from the original note were not included. [facility] PROGRESS NOTE Patient Name: [...] Date/Time Wound Culture - Swab, Leg, Right [[id number]] (Abnormal) Collected: 04/07/252106 Lab Status: Preliminary result [...] DO Preeti 04/09/25 * Larisa Hamilton [facility] - 04/09/2025 11:36 AM EDT Pharmacy to [...] 0841 0.33 18 -- -- 18 TBD ADLEN RN 04/08 1053 -- 18 -- -18 [...] mg Daily 04/05/2025 -- Route: Oral heparin 90836 units/250 mL (100 units/mL) in 0.45 % [...] -- Admin Instructions: Open Order & Select [facility] Electrolyte Replacement Protocol Algorithm to [...] -- Admin Instructions: Open Order & Select [facility] Electrolyte Replacement Protocol Algorithm to [...] -- Admin Instructions: Open Order & Select [facility] Electrolyte Replacement Protocol Algorithm to [...] in 2 weeks for incision check, radiographs [facility] [address] [place], [address] [facility], [address] Please schedule at [phone] VONDA Garcia 04/09/25 09:18 EDT Cosigned by Sushil Dean Jr., MD at 04/19/2025 10:33 AM EDT Associated attestation - Sushil Dean Jr., MD - 04/19/2025 10:33 AM EDT I have reviewed this documentation and agree. * Carlton Mead MD - 04/09/2025 8:25 AM EDT Images from the original note were not included. INFECTIOUS DISEASE Progress Note Won Dennis 1980 [id number] Date of Consult: 04/09/2025 Admission Date: 04/04/2025 [...] prompted him to seek treatment at [facility]. He is known to Dr. Dean. He [...] wound 05/09/25. HDS, on Heparin gtt. Currently [facility] has been asked to manage the antimicrobials [...] Jr., MD; Location: [facility]; Service: Orthopedics; Laterality: Right; PLACEMENT OF WOUND VAC Right 04/07/2025 Procedure: WOUND VACUUM ASSISTED CLOSURE; Surgeon: Sushil Dean Jr., MD; Location: [facility]; Service: Orthopedics; Laterality: Right; History reviewed. [...] MD, 20 mg at 04/08/25 0800 heparin 86703 units/250 mL (100 units/mL) in 0.45 % [...] Units Date/Time FL C Arm During Surgery [[id number]] Resulted: 04/07/252137 Updated: 04/07/252137 Narrative: This procedure was auto-finalized with no dictation required. MRI Tibia Fibula Right With & Without Contrast [[id number]] Collected: 04/07/2538 Updated: 04/07/25 1001 Narrative: MRI [...] Buenrostro 04/07/2025 9:58 AM EDT Workstation ID: [id number] Impression: Recurrent Right BKA stump abscess/cellulitis- this [...] mg IV daily to be supplied by [facility] 2. Home health to perform [...] from the original note were not included. [facility] PROGRESS NOTE Patient Name: [...] Buenrostro 04/07/2025 9:58 AM EDT Workstation ID: [id number] I have personally reviewed the therapy plans: [...] Álvarez DO 04/08/25 * Larisa Hamilton [facility] - 04/08/2025 11:48 AM EDT Pharmacy to [...] -- Admin Instructions: Open Order & Select [facility] Electrolyte Replacement Protocol Algorithm to [...] mg Daily 04/05/2025 -- Route: Oral heparin 23544 units/250 mL (100 units/mL) in 0.45 % [...] -- Admin Instructions: Open Order & Select [facility] Electrolyte Replacement Protocol Algorithm to [...] -- Admin Instructions: Open Order & Select [facility] Electrolyte Replacement Protocol Algorithm to [...] -- Admin Instructions: Open Order & Select [facility] Electrolyte Replacement Protocol Algorithm to [...] INFECTIOUS DISEASE Progress Note Won Dennis 1980 [id number] Date of Consult: 04/08/2025 Admission Date: 04/04/2025 [...] prompted him to seek treatment at [facility]. He is known to Dr. Dean. He [...] wound 05/09/25. HDS, on Heparin gtt. Currently [facility] has been asked to manage the antimicrobials [...] Jr., MD; Location: [facility]; Service: Orthopedics; Laterality: Right; PLACEMENT OF WOUND VAC Right 04/07/2025 Procedure: WOUND VACUUM ASSISTED CLOSURE; Surgeon: Sushil Dean Jr., MD; Location: [facility]; Service: Orthopedics; Laterality: Right; History reviewed. [...] 100 mL MBP, 2,000 mg, Intravenous, Q24H, Sushli Dean Jr., MD, Last Rate: 200 mL/hr [...] Jr., MD, 20 mg at 04/07/25950 heparin 29274 units/250 mL (100 units/mL) in 0.45 % [...] Units Date/Time FL C Arm During Surgery [[id number]] Resulted: 04/07/252137 Updated: 04/07/252137 Narrative: This procedure was auto-finalized with no dictation required. 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 (Treated by ID in [place] [facility]). Dr. Torres treated him with [...] from the original note were not included. [facility] PROGRESS NOTE Patient Name: [...] Buenrostro 04/07/2025 9:58 AM EDT Workstation ID: [id number] I have personally reviewed the therapy plans: [...] Álvarez DO 04/07/25 * Larisa Hamilton [facility] - 04/07/2025 11:56 AM EDT Pharmacy to [...] INFECTIOUS DISEASE Progress Note Won Dennis 1980 [id number] Date of Consult: 04/07/2025 Admission Date: 04/04/2025 [...] prompted him to seek treatment at [facility]. He is known to Dr. Dean. He [...] wound 05/09/25. HDS, on Heparin gtt. Currently [facility] has been asked to manage the antimicrobials [...] Application, 1 Application, Topical, Q12H, Ayah Valentin, SENIOR COMMISSARY AGENT, 1 Application at 04/06/252101 DAPTOmycin (CUBICIN) 800 [...] Shepherd MD, 20 mg at 04/06/25899 heparin 38617 units/250 mL (100 units/mL) in 0.45 % NaCl infusion, 18 Units/kg/hr, Intravenous, Titrated, Cherri Beatty, [facility], Last Rate: 24.1 mL/hr at 04/07/258, 18 [...] With & Without Contrast - In process [[id number]] Resulted: 04/07/25828 Updated: 04/07/25828 This result has not been signed. Information might be incomplete. 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 (Treated by ID in [place] [facility]). Dr. Torres treated him with [...] mg Daily 04/05/2025 -- Route: Oral heparin 34206 units/250 mL (100 units/mL) in 0.45 % [...] -- Admin Instructions: Open Order & Select [facility] Electrolyte Replacement Protocol Algorithm to [...] -- Admin Instructions: Open Order & Select [facility] Electrolyte Replacement Protocol Algorithm to [...] 04/07/25 06:07 EDT * Cherri Beatty [facility] - 04/06/2025 1:47 PM EDT Pharmacy to [...] from the original note were not included. [facility] PROGRESS NOTE Patient Name: [...] MD 04/04/2025 11:00 PM EDT Workstation ID: [id number] I have personally reviewed the therapy plans: [...] mg Daily 04/05/2025 -- Route: Oral heparin 72046 units/250 mL (100 units/mL) in 0.45 % [...] -- Admin Instructions: Open Order & Select [facility] Electrolyte Replacement Protocol Algorithm to [...] INFECTIOUS DISEASE follow up. Won Dennis 1980 [id number] Date of Consult: 04/06/2025 Admission Date: 04/04/2025 [...] prompted him to seek treatment at [facility]. He is known to Dr. Dean. He [...] wound 05/09/25. HDS, on Heparin gtt. Currently [facility] has been asked to manage the antimicrobials [...] Application, 1 Application, Topical, Q12H, Ayah Valentin, SENIOR COMMISSARY AGENT, 1 Application at 04/06/25 0859 DAPTOmycin (CUBICIN) [...] MD, 20 mg at 04/06/25 0900 heparin 87996 units/250 mL (100 units/mL) in 0.45 % NaCl infusion, 18 Units/kg/hr, Intravenous, Titrated, Cherri Beatty [facility], Last Rate: 24.1 mL/hr at 04/06/25 1420, [...] Tibia Fibula Right With & Without Contrast [[id number]] Collected: 04/04/252256 Updated: 04/04/252302 Narrative: MRI TIBIA [...] represent a small area of phlegmonous change (sxojel07 image 10) measuring approximately 1.6 cm which [...] MD 04/04/2025 11:00 PM EDT Workstation ID: [id number] Impression: 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 (Treated by ID in [place] [facility]). Dr. Torres treated him with [...] 04/06/2025 16:00 EDT * Cherri Beatty, [facility] - 04/05/2025 3:01 PM EDT Pharmacy to [...] from the original note were not included. [facility] PROGRESS NOTE Patient Name: [...] MD 04/04/2025 11:00 PM EDT Workstation ID: [id number] I have personally reviewed the therapy plans: [...] from the original note were not included. [facility] HISTORY AND PHYSICAL Patient [...] MD 04/04/2025 11:00 PM EDT Workstation ID: [id number] Assessment & Plan Assessment & Plan Won [...] 4FR PICC placed by Rhoda Bonner RN [facility], tip verified by 3CG see LDA. * Sushil Dean Jr., MD - 04/05/2025 8:07 AM EDTAssociated Order(s): IP CONSULT TO ORTHOPEDIC SURGERY [facility], [facility] [address] [address] Orthopedic Consult Patient: Won Dennis Date of [...] was evaluated in the emergency department in [place], was discharged with instructions for follow-up. He [...] mouth Daily. 04/03/2025 Morning Lactobacillus-Inulin ([facility]) capsule Take 200 mg by mouth Daily. [...] MD 04/04/2025 11:00 PM EDT Workstation ID: [id number] Assessment: Right BKA infection 44-year-old male with [...] DISEASE CONSULT/INITIAL HOSPITAL VISIT Won Dennis 1980 [id number] Date of Consult: 04/05/2025 Admission Date: 04/04/2025 [...] prompted him to seek treatment at [facility]. He is known to Dr. Dean. He [...] wound 05/09/25. HDS, on Heparin gtt. Currently [facility] has been asked to manage the antimicrobials [...] Leonora Shepherd MD, 40 mg at 04/04/25 7569 sennosides-docusate (PERICOLACE) 8.6-50 MG per tablet 2 [...] MD, 20 mg at 04/05/25 0916 heparin 34327 units/250 mL (100 units/mL) in 0.45 % [...] Tibia Fibula Right With & Without Contrast [[id number]] Collected: 04/04/252256 Updated: 04/04/252302 Narrative: MRI TIBIA [...] represent a small area of phlegmonous change ([id number] image 10) measuring approximately 1.6 cm which [...] MD 04/04/2025 11:00 PM EDT Workstation ID: [id number] Impression: 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 (Treated by ID in [place] [facility]). Dr. Torres treated him with [...] Jr., MD - 04/08/2025 3:51 PM EDT [facility] OPERATIVE REPORT PATIENT NAME: Won Dennis DATE OF : 1980 PREOP DIAGNOSIS: Right Right below-knee amputation infection POSTOP DIAGNOSIS: Same. PROCEDURE: Right Right 49693: Secondary closure below-knee amputation SURGEON: Sushil Dean MD OPERATIVE TEAM: Iron Cutter: Susi Grullon RN Scrub Person: Mary Paredes Scrub Person Extra: Hortencia Toribio Other: Katt Gotti RN; Charis Neville RN ANESTHETIST: Anesthesiologist: Ulises Hoffman MD EHS MANAGER: Stan Casillas CRNA Student Nurse Buffing And Polishing Wheel Repairer: Karol Albert SRNA ANESTHESIA: Choice ESTIMATED [...] CULTURE (Canceled) Sushil Dean Jr., MD 04/08/25 4962 Description: RIGHT LEG DEEP WOUND FOR CULTURE [...] Jr., MD - 04/07/2025 9:03 PM EDT [facility] [address] [address] OPERATIVE REPORT PATIENT NAME: Won Dennis DATE OF : 1980 PREOP DIAGNOSIS: Right Right below knee amputation stump infection POSTOP DIAGNOSIS: Same. PROCEDURE: Right Right 58192: Incision and drainage of surgical site infection 04386: Debridement of skin, subcutaneous tissue, muscle 97293: Wound vacuum-assisted closure SURGEON: Sushil Dean MD OPERATIVE TEAM: Iron Cutter: Anum Sanchez RN Scrub Person: Hortencia Toribio; Gerald Ivey TELECOMMUNICATIONS ADMINISTRATOR: Anesthesiologist: Luci Alonso DO ANESTHESIA: General ESTIMATED [...] swellling of the area. seen at [facility] yesterday for CT and US, here for [...] this chart in the absence of a conveyancer. No orders to display RADIOLOGY: [x] Radiologist's [...] 04/11/2025 1:30 PM EDT Continued Stay Note [place] Patient Name: Won Dennis Today's Date: 04/11/2025 Admit Date: 04/04/2025 Plan: Home with outpatient infusion. Discharge Plan Row Name 04/11/25 1155 Plan Plan Home with outpatient infusion. Final Discharge Disposition Code 01 - home or self-care Final Note Patient discharging today. He is discharging home with outpatient infusion at [facility]. He has an appointment with [facility] at 8:00 am tomorrow. They will do PICC line dressing changes. DEBRA has spoke with Dena at [facility] today multiple times to get setup [...] to get IV ABX at home with [facility]; however, Medicaid lapsed on 04/08. DEBRA was unaware until this morning that Medicaid has lapsed. Patient explained that he has Medicare A and B. CM spoke with KELLEE and given themhis Medicare number [id number], she sent it to Admission. DEBRA spoke with Kerri, with [facility], and explained that he had [...] changes and lab work. CM called Dena [facility] they can accept patient and start him. He is known for their facility. The Facility will need to run it through his insurance first. CM faxed the orders over to [facility] at [phone]. CM will follow up with them tomorrow at [facility] to make sure they received the orders. [...] with patient at bedside today. [facility]. Patient getting PICC line [...] note were not included. Discharge Planning Assessment [place] Patient Name: Won Dennis Today's Date: 04/07/2025 [...] with family Patient/Family Anticipated Services at Transition medical case managerdelicatessen manager Anticipated family or friend will provide Discharge Needs Assessment Equipment Currently Used at Home glucometer;shower chair;pulse ox;bp cuff;prosthesis;crutches Equipment Needed After Discharge none Discharge Plan Row Name 04/07/25 1144 Plan Plan Home Patient/Family in Agreement with Plan yes Plan Comments CM spoke with patient at bedside today. Patient lives with and his 5 kids in [facility]. 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 He has walker, cane, shower chair, and crutches. He requested a wheelchair for home. CM will order wheelchair through [employer]. He is not current with home health services. PCP is Dr. Jordan. Insurance is [facility] Medicaid [place]. Patient discharge plan is home with priavte transport. CM will follow for any discharge needs. Final Discharge Disposition Code 01 - home or self-care Continued Care and Services - Admitted Since 04/04/2025 No active coordination exists. Demographic Summary Row Name 04/07/25 1143 General Information Arrived From hospital Preferred Language Belarusian Functional Status Row Name 04/07/25 1143 Functional [...] Abuse No documentation. Patient Forms No documentation. Katyh Johnson RN documented in this encounter Plan [...] 3:4 0 PM EDT Right BKA infection CO SEC ABDOMINAL WALL SUTURE EVISCERATION/DEHSN 04/08/2025 3:20 [...] CBC Auto Differential (04/11/2025 3:40 AM EDT) [facility] WBC 7.87 3.40 - 10.80 10*3/mm3 04/11/2025 4:02 AM EDT [facility] RBC 4.70 4.14 - 5.80 10*6/mm3 04/11/2025 4:02 AM EDT [facility] Hemoglobin 12.8(L) 13.0 - 17.7 g/dL 04/11/2025 4:02 AM EDT [facility] Hematocrit 40.5 37.5 - 51.0 % 04/11/2025 4:02 AM EDT [facility] MCV 86.2 79.0 - 97.0 fL 04/11/2025 4:02 AM EDT [facility] MCH 27.2 26.6 - 33.0 pg 04/11/2025 4:02 AM EDT [facility] MCHC 31.6 31.5 - 35.7 g/dL 04/11/2025 4:02 AM EDT [facility] RDW 12.9 12.3 - 15.4 % 04/11/2025 4:02 AM EDT [facility] RDW-SD 40.5 37.0 - 54.0 fl 04/11/2025 4:02 AM EDT [facility] MPV 9.2 6.0 - 12.0 fL 04/11/2025 4:02 AM EDT [facility] Platelets 267 140 - 450 10*3/mm3 [...] MD LAB BLOOD ORDERABLES Fi nal Result [facility]
[address] [place] [address], * (ABNORMAL) Comprehensive Metabolic Panel (04/11/2025 3:40 AM EDT) Glucose 108(H) 65 - 99 mg/dL 04/11/2025 4:19 AM EDT [facility] BUN 12.5 6.0 - 20.0 mg/dL 04/11/2025 4:19 AM EDT [facility] Creatinine 0.68(L) 0.76 - 1.27 mg/dL 04/11/2025 4:19 AM EDT [facility] Sodium 140 136 - 145 mmol/L 04/11/2025 4:19 AM EDT [facility] Potassium 3.8 3.5 - 5.2 mmol/L 04/11/2025 4:19 AM EDT [facility] Chloride 105 98 - 107 mmol/L 04/11/2025 4:19 AM EDT [facility] CO2 28.2 22.0 - 29.0 mmol/L 04/11/2025 4:19 AM EDT [facility] Calcium 8.2(L) 8.6 - 10.5 mg/dL 04/11/2025 4:19 AM EDT [facility] Total Protein 6.1 6.0 - 8.5 g/dL 04/11/2025 4:19 AM EDT [facility] Albumin 3.1(L) 3.5 - 5.2 g/dL 04/11/2025 4:19 AM EDT [facility] ALT (SGPT) 52(H) 1 - 41 U/L 04/11/2025 4:19 AM EDT [facility] AST (SGOT) 40 1 - 40 U/L 04/11/2025 4:19 AM EDT [facility] Alkaline Phosphatase 99 39 - 117 U/L 04/11/2025 4:19 AM EDT [facility] Total Bilirubin 0.2 0.0 - 1.2 mg/dL 04/11/2025 4:19 AM EDT [facility] Globulin 3.0 gm/dL 04/11/2025 4:19 AM EDT [facility] Comment:Calculated Result A/G Ratio 1.0 g/dL 04/11/2025 4:19 AM EDT [facility] BUN/Creatinine Ratio 18.4 7.0 - 25.0 04/11/2025 4:19 AM EDT [facility] Anion Gap 6.8 5.0 - 15.0 mmol/L 04/11/2025 4:19 AM EDT [facility] eGFR 117.5 >60.0 mL/min/1.7 3 04/11/2025 4:19 AM EDT [facility] Blood Venipuncture / Unknown 04/11/2025 3:40 AM EDT 04/11/2025 3:56 AM EDT [facility] - 04/11/2025 4:19 AM EDT [...] Hill APRN LAB BLOOD ORDERABLES Final Result [facility]
[address] [place] [address], * (ABNORMAL) CBC Auto Differential (04/10/2025 3:46 AM EDT) [facility] WBC 9.60 3.40 - 10.80 10*3/mm3 04/10/2025 3:56 AM EDT [facility] RBC 4.67 4.14 - 5.80 10*6/mm3 04/10/2025 3:56 AM EDT.[facility] Hemoglobin 12.9(L) 13.0 - 17.7 g/dL 04/10/2025 3:56 AM EDT [facility] Hematocrit 40.1 37.5 - 51.0 % 04/10/2025 3:56 AM EDT.[facility] MCV 85.9 79.0 - 97.0 fL 04/10/2025 3:56 AM EDT.[facility] MCH 27.6 26.6 - 33.0 pg 04/10/2025 3:56 AM [facility] MCHC 32.2 31.5 - 35.7 g/dL 04/10/2025 3:56 AM EDT.[facility] RDW 12.9 12.3 - 15.4 % 04/10/2025 3:56 AM [facility] RDW-SD 40.5 37.0 - 54.0 fl 04/10/2025 3:56 AM [facility] MPV 9.5 6.0 - 12.0 fL 04/10/2025 3:56 AM [facility] Platelets 227 140 - 450 10*3/mm3 04/10/2025 3:56 AM EDT [facility] Neutrophil % 59.1 42.7 - 76.0 % 04/10/2025 3:56 AM EDT.[facility] Lymphocyte % 29.0 19.6 - 45.3 % 04/10/2025 3:56 AM EDT.[facility] Monocyte % 8.1 5.0 - 12.0 % 04/10/2025 3:56 AM EDT.[facility] Eosinophil % 3.2 0.3 - 6.2 % 04/10/2025 3:56 AM EDT [facility] Basophil % 0.4 0.0 - 1.5 % 04/10/2025 3:56 AM EDT [facility] Immature Grans % 0.2 0.0 - 0.5 % 04/10/2025 3:56 AM EDT [facility] Neutrophils, Absolute 5.67 1.70 - 7.00 10*3/mm3 04/10/2025 3:56 AM EDT [facility] Lymphocytes, Absolute 2.78 0.70 - 3.10 10*3/mm3 04/10/2025 3:56 AM EDT [facility] Monocytes, Absolute 0.78 0.10 - 0.90 10*3/mm3 04/10/2025 3:56 AM EDT [facility] Eosinophils, Absolute 0.31 0.00 - 0.40 10*3/mm3 04/10/2025 3:56 AM EDT [facility] Basophils, Absolute 0.04 0.00 - 0.20 10*3/mm3 04/10/2025 3:56 AM EDT [facility] Immature Grans, Absolute 0.02 0.00 - 0.05 10*3/mm3 04/10/2025 3:56 AM EDT [facility] nRBC 0.0 0.0 - 0.2 /100 WBC 04/10/2025 3:56 AM EDT [facility] Blood Venipuncture / Unknown 04/10/2025 3:46 AM EDT 04/10/2025 3:53 AM EDT Jason Álvarez DO LAB BLOOD ORDERABLES Final Resul t [facility]
[address] [place] [address], * (ABNORMAL) Basic Metabolic Panel (04/10/2025 3:46 AM EDT) [facility] Glucose 125(H) 65 - 99 mg/dL 04/10/2025 4:20 AM EDT [facility] BUN 15.9 6.0 - 20.0 mg/dL 04/10/2025 4:20 AM T [facility] Creatinine 0.77 0.76 - 1.27 mg/dL 04/10/2025 4:20 AM T [facility] Sodium 137 136 - 145 mmol/L 04/10/2025 4:20 AM [facility] Potassium 3.9 3.5 - 5.2 mmol/L 04/10/2025 4:20 AM EDT [facility] Chloride 102 98 - 107 mmol/L 04/10/2025 4:20 AM EDT [facility] CO2 26.9 22.0 - 29.0 mmol/L [...] 3:46 AM EDT 04/10/2025 3:52 AM EDT [facility] - 04/10/2025 4:20 AM EDT [...] DO LAB BLOOD ORDERABLES Final Resul t [facility]
[address] [place] [address], * Heparin Anti-Xa (04/10/2025 3:46 AM EDT) Heparin Anti-Xa (UFH) 0.35 0.30 - 0.70 IU/ml 04/10/2025 4:23 AM EDT [facility] Blood Venipuncture / Unknown 04/10/2025 3:46 AM EDT 04/10/2025 3:53 AM EDT [facility] LAB BLOOD ORDERABLES Final R esult Performing Organization Address City/[facility]/ZIP Co de Phone Number [facility]
[address] [place] [address], * Heparin Anti-Xa (04/09/2025 10:05 AM EDT) Heparin Anti-Xa (UFH) 0.36 0.30 - 0.70 IU/ml 04/09/2025 11:12 AM EDT [facility] Blood Venipuncture / Unknown 04/09/2025 10:05 AM EDT 04/09/2025 10:47 AM EDT [facility] LAB BLOOD ORDERABLES Final R esult [facility]
[address] [place] [address], * (ABNORMAL) CBC Auto Differential (04/09/2025 4:18 AM EDT) WBC 11.00(H) 3.40 - 10.80 10*3/mm3 04/09/2025 4:50 AM [facility] RBC 4.70 4.14 - 5.80 10*6/mm3 04/09/2025 4:50 AM EDT [facility] Hemoglobin 13.0 13.0 - 17.7 g/dL 04/09/2025 4:50 AM EDT [facility] Hematocrit 40.4 37.5 - 51.0 % 04/09/2025 4:50 AM EDT [facility] MCV 86.0 79.0 - 97.0 fL 04/09/2025 4:50 AM EDT [facility] MCH 27.7 26.6 - 33.0 pg 04/09/2025 4:50 AM EDT.[facility] MCHC 32.2 31.5 - 35.7 g/dL 04/09/2025 4:50 AM EDT.[facility] RDW 12.8 12.3 - 15.4 % 04/09/2025 4:50 AM EDT.[facility] RDW-SD 39.9 37.0 - 54.0 fl 04/09/2025 4:50 AM [facility] MPV 10.0 6.0 - 12.0 fL 04/09/2025 4:50 AM [facility] Platelets 211 140 - 450 10*3/mm3 04/09/2025 4:50 AM EDT.[facility] Neutrophil % 74.8 42.7 - 76.0 % 04/09/2025 4:50 AM EDT [facility] Lymphocyte % 15.4(L) 19.6 - 45.3 % 04/09/2025 4:50 AM EDT [facility] Monocyte % 8.5 5.0 - 12.0 % 04/09/2025 4:50 AM EDT [facility] Eosinophil % 0.6 0.3 - 6.2 % 04/09/2025 4:50 AM EDT.[facility] Basophil % 0.4 0.0 - 1.5 % 04/09/2025 4:50 AM EDT [facility] Immature Grans % 0.3 0.0 - 0.5 % 04/09/2025 4:50 AM EDT [facility] Neutrophils, Absolute 8.23(H) 1.70 - 7.00 10*3/mm3 04/09/2025 4:50 AM EDT [facility] Lymphocytes, Absolute 1.69 0.70 - 3.10 10*3/mm3 04/09/2025 4:50 AM EDT [facility] Monocytes, Absolute 0.94(H) 0.10 - 0.90 10*3/mm3 04/09/2025 4:50 AM EDT [facility] Eosinophils, Absolute 0.07 0.00 - 0.40 10*3/mm3 04/09/2025 4:50 AM EDT [facility] Basophils, Absolute 0.04 0.00 - 0.20 10*3/mm3 04/09/2025 4:50 AM EDT [facility] Immature Grans, Absolute 0.03 0.00 - 0.05 10*3/mm3 04/09/2025 4:50 AM EDT [facility] nRBC 0.0 0.0 - 0.2 /100 WBC 04/09/2025 4:50 AM EDT [facility] Blood Venipuncture / Unknown 04/09/2025 4:18 AM EDT 04/09/2025 4:31 AM EDT Sushil Dean Jr., MD LAB BLOOD ORDERABLES Fi nal Result [facility]
[address] [place] [address], * Heparin Anti-Xa (04/09/2025 4:18 AM EDT) Heparin Anti-Xa (UFH) 0.41 0.30 - 0.70 IU/ml 04/09/2025 4:53 AM EDT [facility] Blood Venipuncture / Unknown 04/09/2025 4:18 AM EDT 04/09/2025 4:31 AM EDT Una Wheeleroy PharmD LAB BLOOD ORDERABLES Final R esult [facility]
[address] [place] [address], * (ABNORMAL) Basic Metabolic Panel (04/09/2025 4:18 AM EDT) Pathologist [facility] Glucose 147(H) 65 - 99 mg/dL 04/09/2025 5:33 AM EDT [facility] BUN 23.0(H) 6.0 - 20.0 mg/dL 04/09/2025 5:33 AM EDT [facility] Creatinine 1.15 0.76 - 1.27 mg/dL 04/09/2025 5:33 AM EDT [facility] Sodium 135(L) 136 - 145 mmol/L 04/09/2025 5:33 AM EDT [facility] Potassium 4.2 3.5 - 5.2 mmol/L 04/09/2025 5:33 AM EDT [facility] Chloride 100 98 - 107 mmol/L 04/09/2025 5:33 AM EDT [facility] CO2 26.0 22.0 - 29.0 mmol/L 04/09/2025 5:33 AM EDT [facility] Calcium 8.2(L) 8.6 - 10.5 mg/dL 04/09/2025 5:33 AM EDT [facility] BUN/Creatinine Ratio 20.0 7.0 - 25.0 04/09/2025 5:33 AM EDT [facility] Anion Gap 9.0 5.0 - 15.0 mmol/L 04/09/2025 5:33 AM EDT [facility] eGFR 80.5 >60.0 mL/min/1.7 3 04/09/2025 5:33 AM EDT [facility] Blood Venipuncture / Unknown 04/09/2025 4:18 AM EDT 04/09/2025 4:29 AM EDT Narrative [facility] - 04/09/2025 5:33 AM EDT GFR [...] ORDERABLES Fi nal Result Performing Organization Address [facility] Co de Phone Number [facility]
[address] [place] [address], * Wound Culture - Swab, Leg, Right (04/08/2025 3:40 PM EDT) Wound Culture No growth at 3 days ALIZA 04/11/2025 10:40 AM EDT [facility] Gram Stain Few (2+) WBCs seen 04/11/2025 10:40 AM EDT [facility] Gram Stain No organisms seen 04/11/2025 10:40 AM EDT [facility] Swab Structure of right lower limb / Unknown 04/08/2025 3:40 PM EDT 04/08/2025 8:05 PM EDT Sushil Dean Jr., MD MICROBIOLOGY - GENERAL ORDERABLES Final Result Performing Organization Address City/[facility]/ZIP Co de Phone Number [facility]
[address] [place] [id number], [facility]
[address] [place] [address], * Anaerobic Culture - Swab, Leg, Right [...] GENERAL ORDERABLES Final Result Performing Organization Address City/[facility] Co de Phone Number [facility]
[address] [place] [address], [place] [phone] * Scan Slide (04/08/2025 8:41 AM EDT) Pathologist [facility] RBC Morphology Normal Normal 04/08/2025 11:02 AM EDT [facility] WBC Morphology Normal Normal 04/08/2025 11:02 AM EDT [facility] Platelet Estimate Adequate Normal 04/08/2025 11:02 AM EDT [facility] Clumped Platelets Present None Seen 04/08/2025 11:02 AM EDT [facility] Blood Venipuncture / Unknown 04/08/2025 8:41 AM EDT 04/08/2025 9:10 AM EDT Una LundbergD LAB BLOOD ORDERABLES Final R esult Performing Organization Address City/[facility]/ZIP Co de Phone Number [facility]
[address] [place] [address], [place] [phone] * (ABNORMAL) CBC Auto Differential (04/08/2025 8:41 AM EDT) Pathologist [facility] WBC 10.07 3.40 - 10.80 10*3/mm3 04/08/2025 11:02 AM EDT [facility] RBC 5.01 4.14 - 5.80 10*6/mm3 04/08/2025 11:02 AM EDT [facility] Hemoglobin 14.0 13.0 - 17.7 g/dL [...] - 7.00 10*3/mm3 04/08/2025 11:02 AM EDT [facility] Lymphocytes, Absolute 0.94 0.70 - 3.10 10*3/mm3 04/08/2025 11:02 AM EDT [facility] Monocytes, Absolute 0.46 0.10 - 0.90 10*3/mm3 04/08/2025 11:02 AM EDT [facility] Eosinophils, Absolute 0.03 0.00 - 0.40 10*3/mm3 04/08/2025 11:02 AM EDT [facility] Basophils, Absolute 0.02 0.00 - 0.20 10*3/mm3 04/08/2025 11:02 AM EDT [facility] Immature Grans, Absolute 0.05 0.00 - 0.05 10*3/mm3 04/08/2025 11:02 AM EDT [facility] nRBC 0.0 0.0 - 0.2 /100 WBC 04/08/2025 11:02 AM EDT [facility] Blood Venipuncture / Unknown 04/08/2025 8:41 AM EDT 04/08/2025 9:10 AM EDT Una Perla PharmD LAB BLOOD ORDERABLES Final R esult [facility]
[address] [place] [address], * (ABNORMAL) Basic Metabolic Panel (04/08/2025 8:41 AM EDT) Glucose 125(H) 65 - 99 mg/dL 04/08/2025 9:51 AM EDT [facility] BUN 13.2 6.0 - 20.0 mg/dL 04/08/2025 9:51 AM EDT [facility] Creatinine 0.69(L) 0.76 - 1.27 mg/dL 04/08/2025 9:51 AM EDT [facility] Sodium 136 136 - 145 mmol/L 04/08/2025 9:51 AM EDT [facility] Potassium 4.6 3.5 - 5.2 mmol/L 04/08/2025 9:51 AM EDT [facility] Chloride 102 98 - 107 mmol/L 04/08/2025 9:51 AM EDT [facility] CO2 23.5 22.0 - 29.0 mmol/L 04/08/2025 9:51 AM EDT [facility] Calcium 8.4(L) 8.6 - 10.5 mg/dL 04/08/2025 9:51 AM EDT [facility] BUN/Creatinine Ratio 19.1 7.0 - 25.0 04/08/2025 9:51 AM EDT [facility] Anion Gap 10.5 5.0 - 15.0 mmol/L 04/08/2025 9:51 AM EDT [facility] eGFR 117.0 >60.0 mL/min/1.7 3 04/08/2025 9:51 AM EDT [facility] Blood Venipuncture / Unknown 04/08/2025 8:41 AM EDT 04/08/2025 9:09 AM EDT [facility] - 04/08/2025 9:51 AM EDT [...] Jr., MD LAB BLOOD ORDERABLES nal Result [facility]
[address] [place] [address], * Heparin Anti-Xa (04/08/2025 8:41 AM EDT) Heparin Anti-Xa (UFH) 0.33 0.30 - 0.70 IU/ml 04/08/2025 9:40 AM EDT [facility] Blood Venipuncture / Unknown 04/08/2025 8:41 AM EDT 04/08/2025 9:10 AM EDT Sushil Dean Jr., MD LAB BLOOD ORDERABLES Fi nal Result [facility]
[address] [place] [address], * [place] C Arm During Surgery (04/07/2025 [...] Occasional WBCs seen 04/11/2025 10:40 AM EDT [facility] Gram Stain No organisms seen 04/11/2025 10:40 AM EDT [facility] Swab Structure of right lower limb / Unknown Collection / Unknown 04/07/2025 9:14 PM EDT 04/08/2025 4:36 AM EDT Sushil Dean Jr., MD MICROBIOLOGY - GENERAL ORDERABLES Final Result [facility]
[address] [place] [address], [facility]
[address] [place] [address], * Anaerobic Culture - Swab, Leg, Right (04/07/2025 9:14 PM EDT) Anaerobic Culture No anaerobes isolated at 5 days ALIZA 04/13/2025 7:21 AM EDT [facility] Swab Structure of right lower limb / Unknown Collection / Unknown 04/07/2025 9:14 PM EDT 04/08/2025 4:36 AM EDT Sushil Dean Jr., MD MICROBIOLOGY - GENERAL ORDERABLES Final Result Performing Organization Address City/[facility]/ZIP Co de Phone Number [facility]
[address] [place] [address], * Anaerobic Culture - Tissue, Leg (04/07/2025 9:13 PM EDT) Anaerobic Culture No anaerobes isolated at 5 days ALIZA 04/13/2025 7:21 AM EDT [facility] Tissue Lower limb structure / Unknown Collection / Unknown 04/07/2025 9:13 PM EDT 04/08/2025 4:54 AM EDT Jason Álvarez DO MICROBIOLOGY - GENERAL ORDERABLE S Final Result [facility]
[address] [place] [address], * Tissue / Bone Culture - Tissue, Leg, Right (04/07/2025 9:13 PM EDT) Tissue Culture No growth at 3 days ALIZA 04/11/2025 10:36 AM EDT [facility] Gram Stain Rare (1+) WBCs seen 04/11/2025 10:36 AM EDT [facility] Gram Stain No organisms seen 04/11/2025 10:36 AM EDT [facility] Tissue Structure of right lower limb / Unknown 04/07/2025 9:13 PM EDT 04/08/2025 4:54 AM EDT Sushil Dean Jr., MD MICROBIOLOGY - GENERAL ORDERABLES Final Result Performing Organization Address City/[facility]/ZIP Co de Phone Number [facility]
[address] [place] [address], [place] [phone] [facility]
[address] [place] [address], [place] [phone] * (ABNORMAL) Wound Culture - Swab, Leg, Right (04/07/2025 9:07 PM EDT) Wound Culture Light growth (2+) Staphylococcus aureus, MRSA(A) ALIZA 04/10/2025 10:38 AM EDT [facility] Comment: Methicillin resistant Staphylococcus aureus, Patient may be an isolation risk. Gram Stain Few (2+) WBCs seen 04/10/2025 10:38 AM EDT [facility] Gram Stain No organisms seen 10:38 AM EDT [facility] Swab [...] Final Result [facility]
[address] [place] [address], [facility]
[address] [place] [address], * Anaerobic Culture - Swab, Leg, Right [...] GENERAL ORDERABLES Final Result Performing Organization Address [facility] Co de Phone Number [facility]
[address] [place] [address], * Heparin Anti-Xa (04/07/2025 9:10 AM EDT) [facility] Heparin Anti-Xa ([facility]) 0.30 0.30 - 0.70 IU/ml 04/07/2025 10:12 AM EDT [facility] Blood Venipuncture / Unknown 04/07/2025 9:10 AM EDT 04/07/2025 9:38 AM EDT Una LundbergD LAB BLOOD ORDERABLES Final R esult Performing Organization Address City/[facility]/ZIP Co de Phone Number [facility]
[address] [place] [address], * (ABNORMAL) CBC Auto Differential (04/07/2025 9:10 AM EDT) Pathologist [facility] WBC 8.63 3.40 - 10.80 10*3/mm3 04/07/2025 9:50 AM EDT [facility] RBC 5.23 4.14 - 5.80 10*6/mm3 04/07/2025 9:50 AM EDT.[facility] Hemoglobin 14.7 13.0 - 17.7 g/dL 04/07/2025 9:50 AM EDT.[facility] Hematocrit 44.8 37.5 - 51.0 % 04/07/2025 9:50 AM EDT.[facility] MCV 85.7 79.0 - 97.0 fL 04/07/2025 9:50 AM EDT [facility] MCH 28.1 26.6 - 33.0 pg 04/07/2025 9:50 AM EDT.[facility] MCHC 32.8 31.5 - 35.7 g/dL 04/07/2025 9:50 AM EDT.[facility] RDW 12.8 12.3 - 15.4 % 04/07/2025 9:50 AM [facility] RDW-SD 39.9 37.0 - 54.0 fl 04/07/2025 9:50 AM [facility] MPV 10.8 6.0 - 12.0 fL 04/07/2025 9:50 AM [facility] Platelets 149 140 - 450 10*3/mm3 04/07/2025 9:50 AM EDT.[facility] Neutrophil % 66.7 42.7 - 76.0 % 04/07/2025 9:50 AM [facility] Lymphocyte % 20.5 19.6 - 45.3 % 04/07/2025 9:50 AM EDT [facility] Monocyte % 9.8 5.0 - 12.0 % 04/07/2025 9:50 AM EDT.[facility] Eosinophil % 2.1 0.3 - 6.2 % 04/07/2025 9:50 AM EDT.[facility] Basophil % 0.3 0.0 - 1.5 % 04/07/2025 9:50 AM EDT.[facility] Immature Grans % 0.6(H) 0.0 - 0.5 % 04/07/2025 9:50 AM EDT [facility] Neutrophils, Absolute 5.75 1.70 - 7.00 10*3/mm3 04/07/2025 9:50 AM EDT [facility] Lymphocytes, Absolute 1.77 0.70 - 3.10 10*3/mm3 04/07/2025 9:50 AM EDT [facility] Monocytes, Absolute 0.85 0.10 - 0.90 10*3/mm3 04/07/2025 9:50 AM EDT [facility] Eosinophils, Absolute 0.18 0.00 - 0.40 10*3/mm3 04/07/2025 9:50 AM EDT [facility] Basophils, Absolute 0.03 0.00 - 0.20 10*3/mm3 04/07/2025 9:50 AM EDT [facility] Immature Grans, Absolute 0.05 0.00 - 0.05 10*3/mm3 04/07/2025 9:50 AM EDT [facility] nRBC 0.0 0.0 - 0.2 /100 WBC 04/07/2025 9:50 AM EDT [facility] Blood Venipuncture / Unknown 04/07/2025 9:10 AM EDT 04/07/2025 9:38 AM EDT us Jason Álvarez DO LAB BLOOD ORDERABLES Final Resul t [facility]
[address] [place] [address], * (ABNORMAL) Basic Metabolic Panel (04/07/2025 9:10 AM EDT) Glucose 112(H) 65 - 99 mg/dL 04/07/2025 10:19 AM EDT [facility] BUN 13.1 6.0 - 20.0 mg/dL 04/07/2025 10:19 AM EDT [facility] Creatinine 0.77 0.76 - 1.27 mg/dL 04/07/2025 10:19 AM EDT [facility] Sodium 139 136 - 145 mmol/L 04/07/2025 10:19 AM EDT [facility] Potassium 4.2 3.5 - 5.2 mmol/L 04/07/2025 10:19 AM EDT [facility] Comment:Specimen hemolyzed. Result may be falsely elevated. Chloride 105 98 - 107 mmol/L 04/07/2025 10:19 AM EDT [facility] CO2 24.8 22.0 - 29.0 mmol/L 04/07/2025 10:19 AM EDT [facility] Calcium 8.6 8.6 - 10.5 mg/dL 04/07/2025 10:19 AM T [facility] BUN/Creatinine Ratio 17.0 7.0 - 25.0 04/07/2025 10:19 AM EDT [facility] Anion Gap 9.2 5.0 - 15.0 mmol/L 04/07/2025 10:19 AM T [facility] eGFR 113.2 >60.0 mL/min/1.7 3 04/07/2025 10:19 AM T [facility] Blood Venipuncture / Unknown 04/07/2025 9:10 AM EDT 04/07/2025 9:38 AM EDT Narrative [facility] - 04/07/2025 10:19 AM EDT GFR [...] DO LAB BLOOD ORDERABLES Final Resul t [facility]
[address] [place] [address], * MRI Tibia Fibula Right With & [...] [place] 04/07/2025 9:58 AM EDT Workstation ID: [id number] Narrative 04/07/2025 9:58 AM EDT MRI TIBIA [...] [place] 04/07/2025 9:58 AM EDT Workstation ID: [id number] us Sushil Dean Jr., MD [facility] MRI ORDERABLES Mary Beth l Result * Heparin Anti-Xa (04/07/2025 1:42 AM EDT) Heparin Anti-Xa (UFH) 0.38 0.30 - 0.70 IU/ml 04/07/2025 2:14 AM EDT [facility] Blood Venipuncture / Unknown 04/07/2025 1:42 AM EDT 04/07/2025 1:54 AM EDT Chelsie Navarretesapna [facility] LAB BLOOD ORDERABLES Final R esult Performing Organization Address City/[facility]/ZIP Co de Phone Number [facility]
[address] [place] [address], * Heparin Anti-Xa (04/06/2025 7:16 PM EDT) Pathologist [facility] Heparin Anti-Xa (UFH) 0.33 0.30 - 0.70 IU/ml 04/06/2025 7:50 PM EDT [facility] Blood Venipuncture / Unknown 04/06/2025 7:16 PM EDT 04/06/2025 7:35 PM EDT Cherri Beatty [facility] LAB BLOOD ORDERABLES Final Res ult Performing Organization Address City/[facility] Co de Phone Number [facility]
[address] [place] [address], * Potassium (04/06/2025 7:16 PM EDT) Pathologist [facility] Potassium 4.0 3.5 - 5.2 mmol/L 04/06/2025 7:53 PM EDT [facility] Blood Venipuncture / Unknown 04/06/2025 7:16 PM EDT 04/06/2025 7:35 PM EDT Jason Álvarez DO LAB BLOOD ORDERABLES Final Resul t Performing Organization Address City/[facility]/ZIP Co de Phone Number [facility]
[address] [place] [address], * (ABNORMAL) Heparin Anti-Xa (04/06/2025 12:36 PM EDT) Heparin Anti-Xa (UFH) 0.24(L) 0.30 - 0.70 IU/ml 04/06/2025 1:23 PM EDT [facility] Blood Venipuncture / Unknown 04/06/2025 12:36 PM EDT 04/06/2025 1:07 PM EDT Una LundbergD LAB BLOOD ORDERABLES Final R esult [facility]
[address] [place] [address], * (ABNORMAL) Heparin Anti-Xa (04/06/2025 3:42 AM EDT) [facility] Heparin Anti-Xa (UFH) 0.25(L) 0.30 - 0.70 IU/ml 04/06/2025 5:30 AM EDT [facility] Blood Venipuncture / Unknown 04/06/2025 3:42 AM EDT 04/06/2025 4:59 AM EDT Chelsie Turpin [facility] LAB BLOOD ORDERABLES Final R esult [facility]
[address] [place] [address], * (ABNORMAL) Basic Metabolic Panel (04/06/2025 3:42 AM EDT) [facility] Glucose 94 65 - 99 mg/dL 04/06/2025 5:59 AM EDT [facility] BUN 12.8 6.0 - 20.0 mg/dL 04/06/2025 5:59 AM EDT [facility] Creatinine 0.80 0.76 - 1.27 mg/dL 04/06/2025 5:59 AM EDT [facility] Sodium 138 136 - 145 mmol/L 04/06/2025 5:59 AM EDT [facility] Potassium 3.6 3.5 - 5.2 mmol/L 04/06/2025 5:59 AM EDT [facility] Chloride 103 98 - 107 mmol/L 04/06/2025 5:59 AM EDT [facility] CO2 24.2 22.0 - 29.0 mmol/L 04/06/2025 5:59 AM EDT [facility] Calcium 8.0(L) 8.6 - 10.5 mg/dL 04/06/2025 5:59 AM EDT [facility] BUN/Creatinine Ratio 16.0 7.0 - 25.0 04/06/2025 5:59 AM EDT [facility] Anion Gap 10.8 5.0 - 15.0 mmol/L 04/06/2025 5:59 AM EDT [facility] eGFR 111.9 >60.0 mL/min/1.7 3 04/06/2025 5:59 AM EDT [facility] Blood Venipuncture / Unknown 04/06/2025 3:42 AM EDT 04/06/2025 5:20 AM EDT Narrative [facility] - 04/06/2025 5:59 AM EDT GFR [...] DO LAB BLOOD ORDERABLES Final Resul t [facility]
[address] [place] [address], * (ABNORMAL) CBC Auto Differential (04/06/2025 3:41 AM EDT) WBC 10.86(H) 3.40 - 10.80 10*3/mm3 04/06/2025 5:04 AM EDT [facility] RBC 5.08 4.14 - 5.80 10*6/mm3 04/06/2025 5:04 AM EDT [facility] Hemoglobin 13.9 13.0 - 17.7 g/dL 04/06/2025 5:04 AM EDT [facility] Hematocrit 43.7 37.5 - 51.0 % 04/06/2025 5:04 AM EDT [facility] MCV 86.0 79.0 - 97.0 fL 04/06/2025 5:04 AM EDT [facility] MCH 27.4 26.6 - 33.0 pg 04/06/2025 5:04 AM EDT [facility] MCHC 31.8 31.5 - 35.7 g/dL 04/06/2025 5:04 AM EDT [facility] RDW 12.8 12.3 - 15.4 % 04/06/2025 5:04 AM EDT [facility] RDW-SD 40.0 37.0 - 54.0 fl 04/06/2025 5:04 AM EDT [facility] MPV 11.7 6.0 - 12.0 fL 04/06/2025 5:04 AM EDT [facility] Platelets 115(L) 140 - 450 10*3/mm3 04/06/2025 5:04 AM EDT [facility] Neutrophil % 65.3 42.7 - 76.0 % 04/06/2025 5:04 AM EDT [facility] Lymphocyte % 20.5 19.6 - 45.3 % 04/06/2025 5:04 AM EDT [facility] Monocyte % 11.8 5.0 - 12.0 % 04/06/2025 5:04 AM EDT [facility] Eosinophil % 1.8 0.3 - 6.2 % 04/06/2025 5:04 AM EDT [facility] Basophil % 0.3 0.0 - 1.5 % 04/06/2025 5:04 AM EDT [facility] Immature Grans % 0.3 0.0 - 0.5 % 04/06/2025 5:04 AM EDT [facility] Neutrophils, Absolute 7.09(H) 1.70 - 7.00 10*3/mm3 04/06/2025 5:04 AM EDT [facility] Lymphocytes, Absolute 2.23 0.70 - 3.10 10*3/mm3 04/06/2025 5:04 AM EDT [facility] Monocytes, Absolute 1.28(H) 0.10 - 0.90 10*3/mm3 04/06/2025 5:04 AM EDT [facility] Eosinophils, Absolute 0.20 0.00 - 0.40 10*3/mm3 04/06/2025 5:04 AM EDT [facility] Basophils, Absolute 0.03 0.00 - 0.20 10*3/mm3 04/06/2025 5:04 AM EDT [facility] Immature Grans, Absolute 0.03 0.00 - 0.05 10*3/mm3 04/06/2025 5:04 AM EDT [facility] nRBC 0.0 0.0 - 0.2 /100 WBC 04/06/2025 5:04 AM EDT [facility] Blood Venipuncture / Unknown 04/06/2025 3:41 AM EDT 04/06/2025 4:58 AM EDT us Jason Álvarez DO LAB BLOOD ORDERABLES Final Resul t [facility]
[address] [place] [address], * Heparin Anti-Xa (04/05/2025 8:43 PM EDT) Heparin Anti-Xa (UFH) 0.38 0.30 - 0.70 IU/ml 04/05/2025 9:09 PM EDT [facility] Blood Venipuncture / Unknown 04/05/2025 8:43 PM EDT 04/05/2025 8:55 PM EDT Cherri Beatty [facility] LAB BLOOD ORDERABLES Final Res ult Performing Organization Address [facility] Co de Phone Number [facility]
[address] [place] [address], * CK (04/05/2025 12:15 PM EDT) Creatine Kinase 140 20 - 200 U/L 04/05/2025 1:31 PM EDT [facility] Blood Venipuncture / Unknown 04/05/2025 12:15 PM EDT 04/05/2025 1:03 PM EDT Carlton Mead MD LAB BLOOD ORDERABLES Final R esult Performing Organization Address [facility] Co de Phone Number [facility]
[address] [place] [address], [place] [phone] * (ABNORMAL) Heparin Anti-Xa (04/05/2025 12:15 PM EDT) Heparin Anti-Xa (UFH) 0.17(L) 0.30 - 0.70 IU/ml 04/05/2025 1:21 PM EDT [facility] Blood Venipuncture / Unknown 04/05/2025 12:15 PM EDT 04/05/2025 1:04 PM EDT Una LundbergD LAB BLOOD ORDERABLES Final R esult Performing Organization Address City/[facility]/ZIP Co de Phone Number [facility]
[address] [place] [address], * (ABNORMAL) aPTT (04/05/2025 3:54 AM EDT) [facility] PTT 35.3(L) 60.0 - 90.0 seconds 04/05/2025 4:31 AM EDT [facility] Blood Venipuncture / Unknown 04/05/2025 3:54 AM EDT 04/05/2025 4:15 AM EDT Narrative [facility] - 04/05/2025 4:31 AM EDT PTT = The equivalent PTT values for the therapeutic range of heparin levels at 0.3 to 0.5 U/ml are 60 to 70 seconds. Una Perla Access [employer] LAB BLOOD ORDERABLES Final R esult Performing Organization Address [facility] Co de Phone Number [facility]
[address] [place] [address], * Heparin Anti-Xa (04/05/2025 3:54 AM EDT) [facility] Heparin Anti-Xa (UFH) 0.30 0.30 - 0.70 IU/ml 04/05/2025 4:32 AM EDT [facility] Blood Venipuncture / Unknown 04/05/2025 3:54 AM EDT 04/05/2025 4:15 AM EDT [employer] LAB BLOOD ORDERABLES Final R esult Performing Organization Address City/[facility] Co de Phone Number [facility]
[address] [place] [address], * (ABNORMAL) CBC Auto Differential (04/05/2025 3:54 AM EDT) [facility] WBC 11.18(H) 3.40 - 10.80 10*3/mm3 04/05/2025 4:20 AM EDT [facility] RBC 5.00 4.14 - 5.80 10*6/mm3 04/05/2025 4:20 AM EDT [facility] Hemoglobin 13.9 13.0 - 17.7 g/dL 04/05/2025 4:20 AM EDT [facility] Hematocrit 42.4 37.5 - 51.0 % 04/05/2025 4:20 AM EDT [facility] MCV 84.8 79.0 - 97.0 fL 04/05/2025 4:20 AM EDT [facility] MCH 27.8 26.6 - 33.0 pg 04/05/2025 4:20 AM EDT.[facility] MCHC 32.8 31.5 - 35.7 [...] 42.7 - 76.0 % 04/05/2025 4:20 AM EDT.[facility] Lymphocyte % 14.0(L) 19.6 - 45.3 % 04/05/2025 4:20 AM EDT [facility] Monocyte % 11.0 5.0 - 12.0 % 04/05/2025 4:20 AM EDT.[facility] Eosinophil % 0.8 0.3 - 6.2 % 04/05/2025 4:20 AM EDT.[facility] Basophil % 0.3 0.0 - 1.5 % 04/05/2025 4:20 AM EDT [facility] Immature Grans % 0.4 0.0 - 0.5 % 04/05/2025 4:20 AM EDT [facility] Neutrophils, Absolute 8.23(H) 1.70 - 7.00 10*3/mm3 04/05/2025 4:20 AM EDT [facility] Lymphocytes, Absolute 1.56 0.70 - 3.10 10*3/mm3 04/05/2025 4:20 AM EDT [facility] Monocytes, Absolute 1.23(H) 0.10 - 0.90 10*3/mm3 04/05/2025 4:20 AM EDT [facility] Eosinophils, Absolute 0.09 0.00 - 0.40 10*3/mm3 04/05/2025 4:20 AM EDT [facility] Basophils, Absolute 0.03 0.00 - 0.20 10*3/mm3 04/05/2025 4:20 AM EDT [facility] Immature Grans, Absolute 0.04 0.00 - 0.05 10*3/mm3 04/05/2025 4:20 AM EDT [facility] nRBC 0.0 0.0 - 0.2 /100 WBC 04/05/2025 4:20 AM EDT [facility] Blood Venipuncture / Unknown 04/05/2025 3:54 AM EDT 04/05/2025 4:16 AM EDT Una Perla PharmD LAB BLOOD ORDERABLES Final R esult [facility]
[address] [place] [address], * (ABNORMAL) Basic Metabolic Panel (04/05/2025 3:54 AM EDT) [facility] Signature Glucose 152(H) 65 - 99 mg/dL 04/05/2025 4:40 AM EDT [facility] BUN 17.3 6.0 - 20.0 mg/dL 04/05/2025 4:40 AM T [facility] Creatinine 0.92 0.76 - 1.27 mg/dL 04/05/2025 4:40 AM EDT [facility] Sodium 136 136 - 145 mmol/L 04/05/2025 4:40 AM EDT [facility] Potassium 3.9 3.5 - 5.2 mmol/L 04/05/2025 4:40 AM EDT [facility] Chloride 103 98 - 107 mmol/L 04/05/2025 4:40 AM EDT [facility] CO2 24.0 22.0 - 29.0 mmol/L 04/05/2025 4:40 AM T [facility] Calcium 7.8(L) 8.6 - 10.5 mg/dL 04/05/2025 4:40 AM [facility] BUN/Creatinine Ratio 18.8 7.0 - 25.0 04/05/2025 4:40 AM T [facility] Anion Gap 9.0 5.0 - 15.0 mmol/L 04/05/2025 4:40 AM [facility] eGFR 105.2 >60.0 mL/min/1.7 3 04/05/2025 4:40 AM [facility] Blood Venipuncture / Unknown 04/05/2025 3:54 AM EDT 04/05/2025 4:15 AM EDT [facility] - 04/05/2025 4:40 AM EDT [...] ORDERABLES Final Re sult Performing Organization Address [facility] Co de Phone Number [facility]
[address] [place] [address], * (ABNORMAL) aPTT (04/05/2025 12:18 AM EDT) PTT 33.6(L) 60.0 - 90.0 seconds 04/05/2025 12:53 AM EDT [facility] Blood Venipuncture / Unknown 04/05/2025 12:18 AM EDT 04/05/2025 12:37 AM EDT Narrative [facility] - 04/05/2025 12:53 AM EDT PTT = The equivalent PTT values for the therapeutic range of heparin levels at 0.3 to 0.5 U/ml are 60 to 70 seconds. Una Perla PharmD LAB BLOOD ORDERABLES Final R esult Performing Organization Address [facility] Co de Phone Number [facility]
[address] [place] [address], [place] [phone] * (ABNORMAL) Protime-INR (04/05/2025 12:18 AM EDT) Protime 15.9(H) 12.2 - 15.3 Seconds 04/05/2025 12:53 AM EDT [facility] INR 1.19(H) 0.89 - 1.12 04/05/2025 12:53 AM EDT [facility] Blood Venipuncture / Unknown 04/05/2025 12:18 AM EDT 04/05/2025 12:37 AM EDT Una Perla PharmD LAB BLOOD ORDERABLES Final R esult Performing Organization Address City/[facility] Co de Phone Number [facility]
[address] [place] [address], [place] [phone] * Heparin Anti-Xa (04/05/2025 12:18 AM EDT) Heparin Anti-Xa (UFH) 0.39 0.30 - 0.70 IU/ml 04/05/2025 12:54 AM EDT [facility] Blood Venipuncture / Unknown 04/05/2025 12:18 AM EDT 04/05/2025 12:37 AM EDT Una Perla PharmD LAB BLOOD ORDERABLES Final R esult [facility]
[address] [place] [address], * MRI Tibia Fibula Right With & [...] MD 04/04/2025 11:00 PM EDT Workstation ID: [id number] Narrative 04/04/2025 11:00 PM EDT MRI TIBIA [...] MD 04/04/2025 11:00 PM EDT Workstation ID: [id number] us Leonora Shepherd MD IMG MRI ORDERABLES Final Resu lt * POC Creatinine (04/04/2025 2:49 PM EDT) [facility] Creatinine 1.10 0.60 - 1.30 mg/dL 04/07/2025 7:14 PM EDT [facility] Comment:Serial Number: [id number] 7Operator: [id number] Venous Blood 04/04/2025 2:49 PM EDT 04/07/2025 7:14 PM EDT Jason Álvarez DO POINT OF CARE TEST ORDERABLES Fi nal Result [facility]
[address] [place] [address], * (ABNORMAL) CBC Auto Differential (04/04/2025 2:47 PM EDT) [facility] WBC 12.72(H) 3.40 - 10.80 10*3/mm3 04/04/2025 2:56 PM EDT [facility] RBC 5.64 4.14 - 5.80 10*6/mm3 04/04/2025 2:56 PM EDT [facility] Hemoglobin 15.3 13.0 - 17.7 g/dL 04/04/2025 2:56 PM EDT [facility] Hematocrit 47.9 37.5 - 51.0 % 04/04/2025 2:56 PM EDT [facility] MCV 84.9 79.0 - 97.0 fL 04/04/2025 2:56 PM EDT [facility] MCH 27.1 26.6 - 33.0 pg 04/04/2025 2:56 PM EDT [facility] MCHC 31.9 31.5 - 35.7 g/dL 04/04/2025 2:56 PM EDT [facility] RDW 13.1 12.3 - 15.4 % 04/04/2025 2:56 PM EDT.[facility] RDW-SD 40.3 37.0 - 54.0 fl 04/04/2025 2:56 PM EDT [facility] MPV 9.4 6.0 - 12.0 fL 04/04/2025 2:56 PM EDT [facility] Platelets 232 140 - 450 10*3/mm3 04/04/2025 2:56 PM EDT [facility] Neutrophil % 74.9 42.7 - 76.0 % 04/04/2025 2:56 PM EDT [facility] Lymphocyte % 13.1(L) 19.6 - 45.3 % 04/04/2025 2:56 PM EDT.[facility] Monocyte % 11.2 5.0 - 12.0 % 04/04/2025 2:56 PM EDT.[facility] Eosinophil % 0.4 0.3 - 6.2 % 04/04/2025 2:56 PM EDT [facility] Basophil % 0.2 0.0 - 1.5 % 04/04/2025 2:56 PM EDT.[facility] Immature Grans % 0.2 0.0 - 0.5 % 04/04/2025 2:56 PM EDT.[facility] Neutrophils, Absolute 9.52(H) 1.70 - 7.00 10*3/mm3 04/04/2025 2:56 PM [facility] Lymphocytes, Absolute 1.66 0.70 - 3.10 10*3/mm3 04/04/2025 2:56 PM EDT [facility] Monocytes, Absolute 1.43(H) 0.10 - 0.90 10*3/mm3 04/04/2025 2:56 PM EDT [facility] Eosinophils, Absolute 0.05 0.00 - 0.40 10*3/mm3 04/04/2025 2:56 PM EDT.[facility] Basophils, Absolute 0.03 0.00 - 0.20 10*3/mm3 04/04/2025 2:56 PM EDT [facility] Immature Grans, Absolute 0.03 0.00 - 0.05 10*3/mm3 04/04/2025 2:56 PM EDT [facility] nRBC 0.0 0.0 - 0.2 /100 WBC 04/04/2025 2:56 PM EDT [facility] Blood Venipuncture / Unknown 04/04/2025 2:47 PM EDT 04/04/2025 2:52 PM EDT Mario Ortiz [email or web address] LAB BLOOD ORDERABLES Fin al Result Performing Organization Address City/[facility]/ZIP Co de Phone Number [facility]
[address] [place] [address], * (ABNORMAL) C-reactive Protein (04/04/2025 2:47 PM EDT) C-Reactive Protein 8.57(H) 0.00 - 0.50 mg/dL 04/04/2025 3:26 PM EDT [facility] Blood Venipuncture / Unknown 04/04/2025 2:47 PM EDT 04/04/2025 2:52 PM EDT Mario Ortiz [email or web address] LAB BLOOD ORDERABLES Fin al Result Performing Organization Address [facility] de Phone Number [facility]
[address] [place] [address], * (ABNORMAL) Sedimentation Rate (04/04/2025 2:47 PM EDT) Sed Rate 51(H) 0 - 15 mm/hr 04/04/2025 3:06 PM EDT [facility] Blood Venipuncture / Unknown 04/04/2025 2:47 PM EDT 04/04/2025 2:52 PM EDT [facility]iz [email or web address] LAB BLOOD ORDERABLES Fin al Result Performing Organization Address City/[facility]/ZIP Co de Phone Number [facility]
[address] [place] [address], * Comprehensive Metabolic Panel (04/04/2025 2:47 PM EDT) [facility] Glucose 90 65 - 99 mg/dL 04/04/2025 3:26 PM EDT [facility] BUN 18.3 6.0 - 20.0 mg/dL 04/04/2025 3:26 PM EDT [facility] Creatinine 0.94 0.76 - 1.27 mg/dL 04/04/2025 3:26 PM EDT [facility] Sodium 136 136 - 145 mmol/L 04/04/2025 3:26 PM EDT [facility] Potassium 3.8 3.5 - 5.2 mmol/L 04/04/2025 3:26 PM EDT [facility] Chloride 100 98 - 107 mmol/L 04/04/2025 3:26 PM EDT [facility] CO2 25.3 22.0 - 29.0 mmol/L 04/04/2025 3:26 PM EDT [facility] Calcium 8.6 8.6 - 10.5 mg/dL 04/04/2025 3:26 PM EDT [facility] Total Protein 7.3 6.0 - 8.5 g/dL 04/04/2025 3:26 PM EDT [facility] Albumin 4.1 3.5 - 5.2 g/dL 04/04/2025 3:26 PM EDT [facility] ALT (SGPT) 26 1 - 41 U/L 04/04/2025 3:26 PM EDT [facility] AST (SGOT) 25 1 - 40 U/L 04/04/2025 3:26 PM EDT [facility] Alkaline Phosphatase 106 39 - 117 U/L 04/04/2025 3:26 PM EDT [facility] Total Bilirubin 1.0 0.0 - 1.2 mg/dL 04/04/2025 3:26 PM EDT [facility] Globulin 3.2 gm/dL 04/04/2025 3:26 PM EDT [facility] Comment:Calculated Result A/G Ratio 1.3 g/dL 04/04/2025 3:26 PM EDT [facility] BUN/Creatinine Ratio 19.5 7.0 - 25.0 04/04/2025 3:26 PM EDT [facility] Anion Gap 10.7 5.0 - 15.0 mmol/L 04/04/2025 3:26 PM EDT [facility] eGFR 102.5 >60.0 mL/min/1.7 3 04/04/2025 3:26 PM EDT [facility] Blood Venipuncture / Unknown 04/04/2025 2:47 PM EDT 04/04/2025 2:52 PM EDT Narrative [facility] - 04/04/2025 3:26 PM EDT GFR [...] DO LAB BLOOD ORDERABLES Fin al Result [facility]
[address] [place] [address], documented in this encounter Visit Diagnoses Diagnosis [...] 04/05/2025 3:33 PM EDT 2,000 Units heparin 88024 units/250 mL (100 units/mL) in 0.45 % [...] BPA Driven Protocol Open Order & [facility] Electrolyte Replacement Protocol Algorithm to [...] BPA Driven Protocol Open Order & [facility] Electrolyte Replacement Protocol Algorithm to [...] disposal. 0831 (Given - Provider: Amber Salazar, CHIEF MECHANICAL ENGINEER)194 (Given - Provider: Anahy Marcelino, CHIEF MECHANICAL ENGINEER)2129 (Canceled Entry - Provider: Anahy Marcelino RRT [...] at 2330 2026 (Given - Provider: Alberto Dlilon, LU) 2030 (Given - Provider: Alberto Dillon, [...] Continuous Medication Order 04/09/2025 04/10/2025 04/11/2025 heparin 27367 units/250 mL (100 units/mL) in 0.45 % [...] BPA Driven Protocol Open Order & [facility] Electrolyte Replacement Protocol Algorithm to [...] BPA Driven Protocol Open Order & [facility] Electrolyte Replacement Protocol Algorithm to [...] documented as of this encounter Care Teams Medical Laboratory Technologist Relationship Specialty Start Date End Date Provider, [place] [address] PCP - General 05/09/23 documented as of this encounter
--- OUTSIDE RECORDS SUMMARY | 2025-04-07 18:00 | XMS_ITS | Encounter Summary ---
[facility] Address [address] [place] [address] Care Team Providers Care Glass Bulb Silverer Name Role Phone Provider, No Known Primary Care Provider Unavail able Reason for Visit * Reason Comments Leg Swelling * Auth/Cert Specialty Diagnoses / Procedures Referred By Contac t Referred To Contact Diagnoses Right BKA infection Referral ID Status Reason Start Date Expiration Date Visits Re quested Visits Authorized [id number] 1 1 Encounter Details Date Type Department Care Team (Late st Contact Info) Description 04/07/2025 6:00 PM EDT - 04/07/2025 6:52 PM EDT Surgery [facility] OR [address] [place] [address] Sushil Dean Jr., MD [address] [place] [address] [address] [id number] LEG DEBRIDEMENT, IRRIGATION Social History Tobacco Use Types Packs/Day Years Used Date Smoking Tobacco: Never Smokeless Tobacco: Never Tobacco Cessation:Counseling Given: Not Answered Alcohol Use Standard Drinks/Week Comments Not Currently 0 (1 standard drink = 0.6 oz pur e alcohol) [facility] Utilities Answer Date Recorded In the past 12 months has [employer] electric, gas, oil, or water company threatened [...] 2:25 PM EDT Cherri Grimm RN * [place] Suicide Severity Rating Scale (Screener/Recent Self-Report) Question [...] Date/Time Wound Culture - Swab, Leg, Right [[id number]] (Abnormal) (Susceptibility) Collected: 04/07/252106 Lab Status: Final [...] Units Date/Time FL C Arm During Surgery [[id number]] Resulted: 04/07/252137 Updated: 04/07/252137 Narrative: This procedure was auto-finalized with no dictation required. MRI Tibia Fibula Right With & Without Contrast [[id number]] Collected: 04/07/25 0938 Updated: 04/07/25 1001 Narrative: [...] Buenrostro 04/07/2025 9:58 AM EDT Workstation ID: [id number] MRI Tibia Fibula Right With & Without Contrast [[id number]] Collected: 04/04/252256 Updated: 04/04/252302 Narrative: MRI TIBIA [...] represent a small area of phlegmonous change (tevbvi63 image 10) measuring approximately 1.6 cm which [...] MD 04/04/2025 11:00 PM EDT Workstation ID: [id number] Pending Labs Order Current Status Fungus Culture [...] Male) Date of 1980 Social Security Number [id number] [place] [address] [place] [address] Holiness Unknown Marital Status Unknown Admission Date 04/04/2025 Admission Type Emergency Admitting Provider Jadyn Richardson DO Attending Provider Jadyn Richardson DO Department, Room/Bed [facility] 5G, S565/1 Discharge Date Discharge Disposition [...] [place] [id number] Payor Plan Address Payor Plan Phone Number Payor Plan Fax Number Effective Dates [employer] [address] [address] 08/10/2023 - None Entered [facility] [id number] Subscriber Name Subscriber Date Member ID WON DENNIS 1980 [id number] Emergency Contacts Mammographer (Rel.) Home Phone Work Phone Mobile Phone Avril Dennis (Spouse) -- -- [phone] Robert Hackett (Relative) -- -- [phone] [facility] 5G [address] [facility] [address] Patient: ROOM: [facility] Won Dennis [address] [place] [address] : 1980 SSN: [id number] Sex: M PCP: Provider, No Known Emergency Contact Information Name Relation Home Work Mobile Avril Dennis Spouse [phone] Other Contacts Name Relation Home Work Mobile Robert Hackett Relative [phone] INSURANCE PAYOR PLAN [employer] # SUBSCRIBER ID Primary: Secondary: MEDICARE [place] [id number] Admitting Diagnosis: 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] Order Date: Apr 09, 2025 Case Management Snowmaker Consult (Order ID: [id number]) Diagnosis: Priority: Routine Expected Date: Expiration Date: Interval: Once Count: Comments: Outpatient orders: 1. Outpatient intravenous antibiotic therapy: Daptomycin 800 mg IV daily to be supplied by [facility] 2. Home health to perform [...] INFECTIOUS DISEASE Progress Note Won Dennis 1980 [id number] Date of Consult: 04/10/2025 Admission Date: 04/04/2025 [...] which prompted him to seek treatment at [facility]. He is known to Dr. [...] Jr., MD, 20 mg at 04/09/25906 heparin 27223 units/250 mL (100 units/mL) in 0.45 % [...] mg, 4 mg, Translingual, Q6H PRN, Sushil eDan Jr., MD, 4 mg at 04/06/25 1002 [...] vancomycin 2750 mg/500 mL 0.9% NS IVPB ([facility]) Ordering Provider: Mairo Crowley, DO 20 mg/kg ?? 134 kg [...] Units Date/Time FL C Arm During Surgery [[id number]] Resulted: 04/07/252137 Updated: 04/07/252137 Narrative: This procedure was auto-finalized with no dictation required. MRI Tibia Fibula Right With & Without Contrast [[id number]] Collected: 04/07/2538 Updated: 04/07/25 1001 Narrative: MRI [...] Buenrostro 04/07/2025 9:58 AM EDT Workstation ID: [id number] Impression: Recurrent Right BKA stump abscess/cellulitis- this [...] discussed his disposition with the pharmacist at [facility] today. I will sign off Outpatient orders: 1. Outpatient intravenous antibiotic therapy: Daptomycin 800 mg IV daily to be supplied by [facility] 2. Home health to perform weekly [...] Time: 04/10/251323 Signed Expand All [facility] Medicine Services PROGRESS NOTE Patient Name: [...] Date/Time Wound Culture - Swab, Leg, Right [[id number]] (Abnormal) (Susceptibility) Collected: 04/07/252106 Lab Status: Final [...] Row Name 04/06/25 1143 Sit-Stand Transfer Sit-Stand [place] (Transfers) modified independence - Comment, (Sit-Stand Transfer) Pt stood from recliner. Not holding onto walker, pt able to pull his pants up while balancing on his one leg. -LM Row Name 04/06/25 1143 Gait/Stairs (Locomotion) [place] Level (Gait) modified independence - Distance in [...] Motion bilateral lower extremity ROM WFL -LM [facility] Name 04/06/25 1145 Strength Comprehensive (MMT) General Manual Muscle Testing (MMT) Assessment no strength deficits identified BLEs -LM [facility] Name 04/06/25 1145 Balance Balance [...] Physical Therapist Goals/Plan No documentation. Clinical Impression [facility] 04/06/25 1146 Pain Pretreatment Pain Rating 0/10 - no pain -LM Posttreatment Pain Rating 0/10 - no pain -LM [facility] 04/06/25 1146 Plan of Care Review Plan of Care Reviewed With patient -LM Outcome Evaluation PT evaluation completed. Pt demonstrated independence with all mobility including ambulating 100 feet using rw - no unsteadiness noted. Pt reports he feels at baseline and doesn't think he needs skilled PT while here. Recommend home at d/c. PT signing off. -LM [facility] Name 04/06/25 1146 Therapy Assessment/Plan (PT) Criteria for Skilled Interventions Met (PT) no;no problems identified which require skilled intervention -LM Therapy Frequency (PT) evaluation only -LM Predicted Duration of Therapy Intervention (PT) Eval Only -LM [facility] Name 04/06/25 1146 Vital Signs Pretreatment Heart Rate (beats/min) 86 -LM Posttreatment Heart Rate (beats/min) 96 -LM Pre SpO2 (%) 95 -LM O2 Delivery Pre Treatment room air -LM Post SpO2 (%) 96 -LM O2 Delivery Post Treatment room air -LM Pre Patient Position Sitting -LM Post Patient Position Sitting -LM [facility] Name 04/06/25 1146 Positioning and [...] Nurse Physical Therapy Education Title: PT OT ROLLED MATERIALS WORKER Therapies (Done) Topic: Physical Therapy (Done) Point: Mobility training (Done) Learning Progress Summary Patient Acceptance, E, VU,DU by at 04/06/2025 1147 Point: Precautions (Done) Learning Progress Summary Patient Acceptance, E, VU,DU by at 04/06/2025 1147 User Cabrera Initials Effective Dates Name Provider Type [facility] 01/24/25 - Susan Cavazos, PT Physical [...] Description Service Date Service Provider Modifiers Qty [id number] PT EVAL LOW COMPLEXITY 3 04/06/2025 Susan [...] mg Daily 04/05/2025 -- Route: Oral heparin 56555 units/250 mL (100 units/mL) in 0.45 % [...] 22 [facility] [address], [address] [facility], [address] Please schedule at [phone] VONDA Garcia 04/11/25 08:32 EDT Cosigned by [...] Date/Time Wound Culture - Swab, Leg, Right [[id number]] (Abnormal) (Susceptibility) Collected: 04/07/252106 Lab Status: Final [...] mg Daily 04/05/2025 -- Route: Oral heparin 80991 units/250 mL (100 units/mL) in 0.45 % [...] 22 [facility] [address], [address] [facility], [address] Please schedule at [phone] VONDA Garcia 04/10/25 09:01 EDT Cosigned by Sushil Dean Jr., MD at 04/19/2025 10:33 AM EDT Associated attestation - Sushil Dean Jr., MD - 04/19/2025 10:33 AM EDT I have reviewed this documentation and agree. * Carlton Mead MD - 04/10/2025 7:38 AM EDT Images from the original note were not included. INFECTIOUS DISEASE Progress Note Won Dennis 1980 [id number] Date of Consult: 04/10/2025 Admission Date: 04/04/2025 [...] which prompted him to seek treatment at [facility]. He is known to Dr. [...] IRRIGATION; Surgeon: Sushil Dean Jr., MD; Location: [facility] OR; Service: Orthopedics; Laterality: Right; PLACEMENT OF WOUND VAC Right 04/07/2025 Procedure: WOUND VACUUM ASSISTED CLOSURE; Surgeon: Sushil Dean Jr., MD; Location: [facility] OR; Service: Orthopedics; Laterality: Right; WOUND CLOSURE [...] Jr., MD, 20 mg at 04/09/25906 heparin 90473 units/250 mL (100 units/mL) in 0.45 % [...] % flush 20 mL, 20 mL, Intravenous, PRmAber, Carlton Mead MD sodium chloride 0.9 % [...] Units Date/Time FL C Arm During Surgery [[id number]] Resulted: 04/07/252137 Updated: 04/07/252137 Narrative: This procedure was auto-finalized with no dictation required. MRI Tibia Fibula Right With & Without Contrast [[id number]] Collected: 04/07/25937 Updated: 04/07/25 100 Narrative: MRI [...] Buenrostro 04/07/2025 9:58 AM EDT Workstation ID: [id number] Impression: Recurrent Right BKA stump abscess/cellulitis- this [...] discussed his disposition with the pharmacist at [facility] today. I will sign off Outpatient orders: 1. Outpatient intravenous antibiotic therapy: Daptomycin 800 mg IV daily to be supplied by [facility] 2. Home health to perform weekly [...] MD 04/10/2025 07:38 EDT * Larisa Hamilton [facility] - 04/10/2025 7:17 AM [...] Date/Time Wound Culture - Swab, Leg, Right [[id number]] (Abnormal) Collected: 04/07/252106 Lab Status: Preliminary result [...] Jason Álvarez DO 04/09/25 * Larisa Hamilton [facility] [...] -- Admin Instructions: Open Order & Select [facility] Electrolyte Replacement Protocol Algorithm to View Details [...] mg Daily 04/05/2025 -- Route: Oral heparin 43740 units/250 mL (100 units/mL) in 0.45 % [...] -- Admin Instructions: Open Order & [facility] Electrolyte Replacement Protocol Algorithm to View Details [...] radiographs [facility] [address], [address] [facility], [address] Please schedule at [phone] VONDA Garcia 04/09/25 09:18 EDT Cosigned by Sushil Dean Jr., MD at 04/19/2025 10:33 AM EDT Associated attestation - Sushil Dean Jr., MD - 04/19/2025 10:33 AM EDT I have reviewed this documentation and agree. * Carlton Mead MD - 04/09/2025 8:25 AM EDT Images from the original note were not included. INFECTIOUS DISEASE Progress Note Won Dennis 1980 [id number] Date of Consult: 04/09/2025 Admission Date: 04/04/2025 [...] which prompted him to seek treatment at [facility]. He is known to Dr. [...] IRRIGATION; Surgeon: Sushil Dean Jr., MD; Location: [facility]; Service: Orthopedics; Laterality: Right; PLACEMENT OF WOUND VAC Right 04/07/2025 Procedure: WOUND VACUUM ASSISTED CLOSURE; Surgeon: Sushil Dean Jr., MD; Location: [facility] OR; Service: Orthopedics; Laterality: Right; [...] MD, 20 mg at 04/08/25 0800 heparin 02517 units/250 mL (100 units/mL) in 0.45 % [...] capsule 0.4 mg, 0.4 mg, Oral, Nightly, Susihl Dean Jr., MD, 0.4 mg at 04/08/252006 [...] Units Date/Time FL C Arm During Surgery [[id number]] Resulted: 04/07/252137 Updated: 04/07/252137 Narrative: This procedure was auto-finalized with no dictation required. MRI Tibia Fibula Right With & Without Contrast [[id number]] Collected: 04/07/25 0938 Updated: 04/07/25 1001 Narrative: [...] Chitra 04/07/2025 9:58 AM EDT Workstation ID: [id number] Impression: Recurrent Right BKA stump abscess/cellulitis- this [...] mg IV daily to be supplied by [facility] 2. Home health to perform [...] Buenrostro 04/07/2025 9:58 AM EDT Workstation ID: [id number] I have personally reviewed the therapy plans: [...] Jason Álvarez, DO 04/08/25 * Hamilton, Larisa, [facility] - 04/08/2025 11:48 AM [...] -- Admin Instructions: Open Order & [facility] Electrolyte Replacement Protocol Algorithm to View Details [...] mg Daily 04/05/2025 -- Route: Oral heparin 04358 units/250 mL (100 units/mL) in 0.45 % [...] INFECTIOUS DISEASE Progress Note Won Dennis 1980 [id number] Date of Consult: 04/08/2025 Admission Date: 04/04/2025 [...] which prompted him to seek treatment at [facility]. He is known to Dr. Dena. He denies recent antibiotics. He has an [...] MD; Location: [facility] OR; Service: Orthopedics; Laterality: Right; PLACEMENT OF WOUND VAC Right 04/07/2025 Procedure: WOUND VACUUM ASSISTED CLOSURE; Surgeon: Sushil Dean Jr., MD; Location: [facility] OR; Service: Orthopedics; Laterality: Right; [...] Oral, Q6H PRN, 500 mg at 04/06/25 8824 OR acetaminophen (TYLENOL) 160 MG/5ML oral solution [...] Jr., MD, 20 mg at 04/07/25950 heparin 93385 units/250 mL (100 units/mL) in 0.45 % [...] vancomycin 2750 mg/500 mL 0.9% NS IVPB ([facility]) Ordering Provider: Mario Crowley, DO 20 mg/kg [...] Units Date/Time FL C Arm During Surgery [[id number]] Resulted: 04/07/252137 Updated: 04/07/252137 Narrative: This procedure was auto-finalized with no dictation required. MRI Tibia Fibula Right With & Without Contrast [[id number]] Collected: 04/07/25 0938 Updated: 04/07/25 1001 Narrative: [...] Buenrostro 04/07/2025 9:58 AM EDT Workstation ID: [id number] Impression: 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 (Treated by ID in [place] Dr. Harris). Dr. Torres treated him with [...] Continue ceftriaxone 3. Surgical intervention per Dr. Daen This visit included the following complex service [...] Buenrostro 04/07/2025 9:58 AM EDT Workstation ID: [id number] I have personally reviewed the therapy plans: [...] Jason DO Preeti 04/07/25 * Larisa Hamilton, [facility] - 04/07/2025 11:56 AM [...] INFECTIOUS DISEASE Progress Note Won Dennis 1980 [id number] Date of Consult: 04/07/2025 Admission Date: 04/04/2025 [...] which prompted him to seek treatment at [facility]. He is known to Dr. [...] MD, 20 mg at 04/06/25 0900 heparin 15299 units/250 mL (100 units/mL) in 0.45 % [...] With & Without Contrast - In process [[id number]] Resulted: 04/07/25828 Updated: 04/07/25828 This result has not been signed. Information might be incomplete. MRI Tibia Fibula Right With & Without Contrast [[id number]] Collected: 04/04/252256 Updated: 04/04/253 Narrative: MRI TIBIA [...] represent a small area of phlegmonous change (dioszo28 image 10) measuring approximately 1.6 cm which [...] MD 04/04/2025 11:00 PM EDT Workstation ID: [id number] Impression: 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 (Treated by ID in [place] Dr. Harris). Dr. Torres treated him with [...] -- Admin Instructions: Open Order & [facility] Electrolyte Replacement Protocol Algorithm to View Details [...] mg Daily 04/05/2025 -- Route: Oral heparin 67763 units/250 mL (100 units/mL) in 0.45 % [...] -- Admin Instructions: Open Order & [facility] Electrolyte Replacement Protocol Algorithm to View Details [...] MD 04/04/2025 11:00 PM EDT Workstation ID: [id number] I have personally reviewed the therapy plans: [...] mg Daily 04/05/2025 -- Route: Oral heparin 46009 units/250 mL (100 units/mL) in 0.45 % [...] -- Admin Instructions: Open Order & [facility] Electrolyte Replacement Protocol Algorithm to View Details [...] -- Admin Instructions: Open Order & [facility] Electrolyte Replacement Protocol Algorithm to View Details [...] INFECTIOUS DISEASE follow up. Won Dennis 1980 [id number] Date of Consult: 04/06/2025 Admission Date: 04/04/2025 [...] which prompted him to seek treatment at [facility]. He is known to Dr. [...] MD, 20 mg at 04/06/25 0900 heparin 17946 units/250 mL (100 units/mL) in 0.45 % [...] flush 10 mL, 10 mL, Intravenous, PRN, Loenora Shepherd MD sodium chloride 0.9 % infusion [...] Tibia Fibula Right With & Without Contrast [[id number]] Collected: 04/04/252256 Updated: 04/04/252302 Narrative: MRI TIBIA [...] represent a small area of phlegmonous change (megmys52 image 10) measuring approximately 1.6 cm which [...] MD 04/04/2025 11:00 PM EDT Workstation ID: [id number] Impression: 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 (Treated by ID in [place] Dr. Harris). Dr. Torres treated him with [...] MD 04/04/2025 11:00 PM EDT Workstation ID: [id number] I have personally reviewed the therapy plans: [...] MD 04/04/2025 11:00 PM EDT Workstation ID: [id number] Assessment & Plan Assessment & Plan Won [...] 4FR PICC placed by Rhoda Bonner RN [facility], tip verified by 3CG see LDA. * Sushil Dean Jr., MD - 04/05/2025 8:07 AM EDTAssociated Order(s): IP CONSULT TO ORTHOPEDIC SURGERY [facility], [facility] [address] [address] Orthopedic Consult Patient: Won Dennis Date of Admission: 04/04/2025 4:10 PM Date of : 1980 Attending Physician: Jason Álvarez DO Consulting Physician: Sushil Dean Jr, MD Chief Complaint: 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 male admitted to [facility] with 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]. He has [...] was evaluated in the emergency department in [place], was discharged with instructions for follow-up. He [...] tablet by mouth Daily. 04/03/2025 Morning Lactobacillus-Inulin ([facility]estive [facility]) capsule Take 200 mg by mouth [...] MD 04/04/2025 11:00 PM EDT Workstation ID: [id number] Assessment: Right BKA infection 44-year-old male with [...] DISEASE CONSULT/INITIAL HOSPITAL VISIT Won Dennis 1980 [id number] Date of Consult: 04/05/2025 Admission Date: 04/04/2025 [...] which prompted him to seek treatment at [facility]. He is known to Dr. [...] Leonora Shepherd MD, 40 mg at 04/04/25 2888 sennosides-docusate (PERICOLACE) 8.6-50 MG per tablet 2 [...] MD, 20 mg at 04/05/25 09 heparin 50912 units/250 mL (100 units/mL) in 0.45 % [...] Leonora Shepherd MD, 10 mg at 04/04/25 2446 Pharmacy to Dose Heparin, , Not Applicable, [...] Tibia Fibula Right With & Without Contrast [[id number]] Collected: 04/04/252256 Updated: 04/04/252302 Narrative: MRI TIBIA [...] represent a small area of phlegmonous change (lzvtwy64 image 10) measuring approximately 1.6 cm which [...] MD 04/04/2025 11:00 PM EDT Workstation ID: [id number] Impression: 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 (Treated by ID in [place] Dr. Harris). Dr. Torres treated him with [...] Jr., MD - 04/08/2025 3:51 PM EDT [facility] OPERATIVE REPORT PATIENT NAME: Won Dennis DATE OF : 1980 PREOP DIAGNOSIS: Right Right below-knee amputation infection POSTOP DIAGNOSIS: Same. PROCEDURE: Right Right 78409: Secondary closure below-knee amputation SURGEON: Sushil Dean MD OPERATIVE TEAM: Director Of Estate: Susi Grullon RN Scrub Person: Mary Paredes Scrub Person Extra: Hortencia Toribio Other: Katt Gotti RN; Charis Neville RN ANESTHETIST: Anesthesiologist: Ulises Hoffman MD DANCE COSTUME DESIGNER: Stan Casillas CRNA Student Nurse Knotter: Karol Albert SRNA ANESTHESIA: Choice ESTIMATED BLOOD [...] CULTURE (Canceled) Sushil Dean Jr., MD 04/08/25 9242 Description: RIGHT LEG DEEP WOUND FOR CULTURE [...] PM EDT [facility], [place] [address] OPERATIVE REPORT PATIENT NAME: Won Dennis DATE OF : 1980 PREOP DIAGNOSIS: Right Right below knee amputation stump infection POSTOP DIAGNOSIS: Same. PROCEDURE: Right Right 20158: Incision and drainage of surgical site infection 75309: Debridement of skin, subcutaneous tissue, muscle 48295: Wound vacuum-assisted closure SURGEON: Sushil Dean MD OPERATIVE TEAM: Director Of Estate: Anum Sanchez RN Scrub Person: Hortencia Toribio; Gerald Ivey SODA WORKER: Anesthesiologist: Luci Alonso DO ANESTHESIA: General [...] ago swellling of the area. seen at [facility] yesterday for CT and US, [...] this chart in the absence of a refinery operator helper. No orders to display RADIOLOGY: [x] Radiologist's [...] is discharging home with outpatient infusion at [facility]. He has an appointment with [facility] at 8:00 am tomorrow. They [...] to get IV ABX at home with [facility]; however, Medicaid lapsed on 04/08. DEBRA was unaware until this morning that Medicaid has lapsed. Patient explained that he has Medicare A and B. CM spoke with KELLEE and given themhis Medicare number [id number], she sent it to Admission. DEBRA spoke with Kerri, with [facility], and explained that he had Medicare A and B. However, it will not cover home infusion. It will be $64.00 a day out of packet. Patients can go to the Infusion center at [facility], and it will cover the cost as an outpatient. He will need to go there every day for infusion. They will be able to do the patients' PICC line dressing changes and lab work. DEBRA called [facility] Outpatient infusion center they can accept patient and start him. He is known for their facility. The Facility will need to run it through his insurance first. CM faxed the orders over to [facility] at [phone]. CM will follow up with them tomorrow at [facility] to make sure they received [...] 04/09/2025 2:51 PM EDT Continued Stay Note [facility] Patient Name: Won Dennis Today's Date: 04/09/2025 Admit Date: 04/04/2025 Plan: Home Discharge Plan Row Name 04/09/25 1311 Plan Plan Home Patient/Family in Agreement with Plan yes Plan Comments CM spoke with patient at bedside today. Wheelchair from [employer] is at bedside. Patient getting PICC line [...] note were not included. Discharge Planning Assessment [facility] Patient Name: Won Dennis Today's Date: [...] with family Patient/Family Anticipated Services at Transition director casemanager massage department Anticipated family or friend will provide Discharge Needs Assessment Equipment Currently Used at Home glucometer;shower chair;pulse ox;bp cuff;prosthesis;crutches Equipment Needed After Discharge none Discharge Plan Row Name 04/07/25 1144 Plan Plan Home Patient/Family in Agreement with Plan yes Plan Comments CM spoke with patient at bedside today. Patient lives with and his 5 kids in [facility]. 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 He has walker, cane, shower chair, and crutches. He requested a wheelchair for home. CM [facility]. He is not current with home health [...] CBC Auto Differential (04/11/2025 3:40 AM EDT) [facility] WBC 7.87 3.40 - 10.80 10*3/mm3 04/11/2025 4:02 AM EDT [facility] RBC 4.70 4.14 - 5.80 10*6/mm3 04/11/2025 4:02 AM [facility] Hemoglobin 12.8(L) 13.0 - 17.7 g/dL 04/11/2025 4:02 AM [facility] Hematocrit 40.5 37.5 - 51.0 % 04/11/2025 4:02 AM [facility] MCV 86.2 79.0 - 97.0 fL 04/11[facility]2025 [facility] MCH 27.2 26.6 - 33.0 pg 04/11/2025 4:02 AM [facility] MCHC 31.6 31.5 - 35.7 g/dL 04/11/2025 4:02 AM [facility] RDW 12.9 12.3 - 15.4 % 04/11/2025 4:02 AM [facility] RDW-SD 40.5 37.0 - 54.0 fl 04/11/2025 4:02 AM [facility] MPV 9.2 6.0 - 12.0 fL 04/11/2025 4:02 AM [facility] Platelets 267 140 - 450 10*3/mm3 04/11/2025 4:02 AM [facility] Neutrophil % 59.5 42.7 - 76.0 % 04/11/2025 4:02 AM [facility] Lymphocyte % 26.3 19.6 - 45.3 % 04/11/2025 4:02 AM [facility] Monocyte % 9.3 5.0 - 12.0 % 04/11/2025 4:02 AM [facility] Eosinophil % 4.1 0.3 - 6.2 % 04/11/2025 4:[facility] Basophil % 0.4 0.0 - 1.5 % 04/11/2025 4:02 [facility] Immature Grans % 0.4 0.0 - 0.5 % 04/11/2025 4:02 AM [facility] Neutrophils, Absolute 4.69 1.70 - 7.00 10*3/mm3 04/11/2025 4:02 AM EDT [facility] Lymphocytes, Absolute 2.07 0.70 - 3.10 10*3/mm3 04/11/2025 4:02 AM EDT [facility] Monocytes, Absolute 0.73 0.10 - 0.90 10*3/mm3 04/11/2025 4:02 AM EDT [facility] Eosinophils, Absolute 0.32 0.00 - 0.40 10*3/mm3 04/11/2025 4:02 AM EDT [facility] Basophils, Absolute 0.03 0.00 - 0.20 10*3/mm3 04/11/2025 4:02 AM EDT [facility] Immature Grans, Absolute 0.03 0.00 - 0.05 10*3/mm3 04/11/2025 4:02 AM EDT [facility] nRBC 0.0 0.0 - 0.2 /100 WBC 04/11/2025 4:02 AM EDT [facility] Blood Venipuncture / Unknown 04/11/2025 3:40 AM EDT 04/11/2025 3:59 AM EDT us Sushil Dean Jr., MD LAB BLOOD ORDERABLES Fi nal Result [facility]
[address] [place] [address], * (ABNORMAL) Comprehensive Metabolic Panel (04/11/2025 3:40 AM EDT) [facility] Signature Glucose 108(H) 65 - 99 mg/dL 04/11/2025 4:19 AM EDT [facility] BUN 12.5 6.0 - 20.0 mg/dL 04/11/2025 4:19 AM EDT [facility] Creatinine 0.68(L) 0.76 - 1.27 mg/dL 04/11/2025 4:19 AM [facility] Sodium 140 136 - 145 mmol/L 04/11/2025 4:19 AM [facility] Potassium 3.8 3.5 - 5.2 mmol/L 04/11/2025 4:19 AM [facility] Chloride 105 98 - 107 mmol/L 04/11/2025 4:19 AM [facility] CO2 28.2 22.0 - 29.0 mmol/L 04/11/2025 4:19 AM [facility] Calcium 8.2(L) 8.6 - 10.5 mg/dL 04/11/2025 4:19 AM [facility] Total Protein 6.1 6.0 - 8.5 g/dL 04/11/2025 4:19 AM [facility] Albumin 3.1(L) 3.5 - 5.2 g/dL 04/11/2025 4:19 AM [facility] ALT (SGPT) 52(H) 1 - 41 U/L 04/11/2025 4:19 AM [facility] AST (SGOT) 40 1 - 40 U/L 04/11/2025 4:19 AM [facility] Alkaline Phosphatase 99 39 - 117 U/L 04/11/2025 4:19 AM [facility] Total Bilirubin 0.2 0.0 - 1.2 mg/dL 04/11/2025 4:19 AM [facility] Globulin 3.0 gm/dL 04/11/2025 4:19 AM [facility] Comment:Calculated Result A/G Ratio 1.0 g/dL 04/11/2025 4:19 AM [facility] BUN/Creatinine Ratio 18.4 7.0 - 25.0 04/11/2025 4:19 AM [facility] Anion Gap 6.8 5.0 - 15.0 mmol/L 04/11/2025 4:19 AM [facility] eGFR 117.5 >60.0 mL/min/1.7 3 04/11/2025 4:19 AM EDT [facility] Blood Venipuncture / Unknown 04/11/2025 3:40 AM EDT 04/11/2025 3:56 AM EDT [facility] - 04/11/2025 4:19 AM EDT [...] include race as a factor Rosario Hill [employer] LAB BLOOD ORDERABLES Final Result [facility]
[address] [place] [address], * (ABNORMAL) CBC Auto Differential (04/10/2025 3:46 AM EDT) WBC 9.60 3.40 - 10.80 10*3/mm3 04/10/2025 3:56 AM EDT [facility] RBC 4.67 4.14 - 5.80 10*6/mm3 04/10/2025 3:56 AM EDT [facility] Hemoglobin 12.9(L) 13.0 - 17.7 g/dL 04/10/2025 3:56 AM EDT [facility] Hematocrit 40.1 37.5 - 51.0 % 04/10/2025 3:56 AM EDT [facility] MCV 85.9 79.0 - 97.0 fL 04/10/2025 3:56 AM EDT [facility] MCH 27.6 26.6 - 33.0 pg 04/10/2025 3:56 AM EDT [facility] MCHC 32.2 31.5 - 35.7 g/dL 04/10/2025 3:56 [facility] RDW 12.9 12.3 - 15.4 % 04/10/2025 3:56 AM [facility] RDW-SD 40.5 37.0 - 54.0 fl 04/10/2025 3:56 AM [facility] MPV 9.5 6.0 - 12.0 fL 04/10/2025 3:56 AM EDT [facility] Platelets 227 140 - 450 10*3/mm3 04/10/2025 3:56 AM [facility] Neutrophil % 59.1 42.7 - 76.0 % 04/10/2025 3:56 AM [facility] Lymphocyte % 29.0 19.6 - 45.3 % 04/10/2025 3:56 AM [facility] Monocyte % 8.1 5.0 - 12.0 % 04/10/2025 3:56 [facility] Eosinophil % 3.2 0.3 - 6.2 % 04/10/2025 3:56 AM [facility] Basophil % 0.4 0.0 - 1.5 % 04/10/2025 3:56 AM [facility] Immature Grans % 0.2 0.0 - 0.5 % 04/10/2025 3:56 AM [facility] Neutrophils, Absolute 5.67 1.70 - 7.00 10*3/mm3 04/10/2025 3:56 [facility] Lymphocytes, Absolute 2.78 0.70 - 3.10 10*3/mm3 04/10/2025 3:56 [facility] Monocytes, Absolute 0.78 0.10 - 0.90 10*3/mm3 04/10/2025 3:56 [facility] Eosinophils, Absolute 0.31 0.00 - 0.40 10*3/mm3 04/10/2025 3:56 AM [facility] Basophils, Absolute 0.04 0.00 - 0.20 10*3/mm3 04/10/2025 3:56 AM EDT [facility] Immature Grans, Absolute 0.02 0.00 - 0.05 10*3/mm3 04/10/2025 3:56 AM EDT [facility] nRBC 0.0 0.0 - 0.2 /100 WBC 04/10/2025 3:56 AM EDT [facility] Blood Venipuncture / Unknown 04/10/2025 3:46 AM EDT 04/10/2025 3:53 AM EDT us Jason Álvarez DO LAB BLOOD ORDERABLES Final Resul t [facility]
[address] [place] [address], * (ABNORMAL) Basic Metabolic Panel (04/10/2025 3:46 AM EDT) Glucose 125(H) 65 - 99 mg/dL 04/10/2025 4:20 AM EDT [facility] BUN 15.9 6.0 - 20.0 mg/dL 04/10/2025 4:20 AM EDT [facility] Creatinine 0.77 0.76 - 1.27 mg/dL 04/10/2025 4:20 AM EDT [facility] Sodium 137 136 - 145 mmol/L 04/10/2025 4:20 AM EDT [facility] Potassium 3.9 3.5 - 5.2 mmol/L 04/10/2025 4:20 AM EDT [facility] Chloride 102 98 - 107 mmol/L 04/10/2025 4:20 AM EDT [facility] CO2 26.9 22.0 - 29.0 mmol/L 04/10/2025 4:20 AM EDT [facility] Calcium 7.9(L) 8.6 - 10.5 mg/dL 04/10/2025 4:20 AM EDT [facility] BUN/Creatinine Ratio 20.6 7.0 - 25.0 04/10/2025 4:20 AM EDT [facility] Anion Gap 8.1 5.0 - 15.0 mmol/L 04/10/2025 4:20 AM EDT [facility] eGFR 113.2 >60.0 mL/min/1.7 3 04/10/2025 4:20 AM EDT [facility] Blood Venipuncture / Unknown 04/10/2025 3:46 AM EDT 04/10/2025 3:52 AM EDT Narrative [facility] - 04/10/2025 4:20 AM EDT [...] DO LAB BLOOD ORDERABLES Final Resul t [facility]
[address] [place] [address], * Heparin Anti-Xa (04/10/2025 3:46 AM EDT) Heparin Anti-Xa (UFH) 0.35 0.30 - 0.70 IU/ml 04/10/2025 4:23 AM EDT [facility] Blood Venipuncture / Unknown 04/10/2025 3:46 AM EDT 04/10/2025 3:53 AM EDT Larisa Hamilton [facility] LAB BLOOD ORDERABLES Final R esult [facility]
[address] [place] [address], * Heparin Anti-Xa (04/09/2025 10:05 AM EDT) Pathologist [facility] [place] Heparin Anti-Xa (UFH) 0.36 0.30 - 0.70 IU/ml 04/09/2025 11:12 AM EDT [facility] Blood Venipuncture / Unknown 04/09/2025 10:05 AM EDT 04/09/2025 10:47 AM EDT Larisa Hamilton [facility] LAB BLOOD ORDERABLES Final R esult [facility]
[address] [place] [address], * (ABNORMAL) CBC Auto Differential (04/09/2025 4:18 AM EDT) Pathologist [facility] [place] WBC 11.00(H) 3.40 - 10.80 10*3/mm3 04/09/2025 4:50 AM EDT [facility] RBC 4.70 4.14 - 5.80 10*6/mm3 04/09/2025 4:50 AM EDT [facility] Hemoglobin 13.0 13.0 - 17.7 g/dL 04/09/2025 4:50 AM EDT [facility] Hematocrit 40.4 37.5 - 51.0 % 04/09/2025 4:50 AM EDT [facility] MCV 86.0 79.0 - 97.0 fL 04/09/2025 4:50 AM EDT [facility] MCH 27.7 26.6 - 33.0 pg 04/09/2025 4:50 AM EDT [facility] MCHC 32.2 31.5 - 35.7 g/dL 04/09/2025 4:50 AM EDT [facility] RDW 12.8 12.3 - 15.4 % 04/09/2025 4:50 AM [facility] RDW-SD 39.9 37.0 - 54.0 fl 04/09/2025 4:50 AM [facility] MPV 10.0 6.0 - 12.0 fL 04/09/2025 4:50 AM [facility] Platelets 211 140 - 450 10*3/mm3 04/09/2025 4:50 [facility] Neutrophil % 74.8 42.7 - 76.0 % 04/09/2025 4:50 AM [facility] Lymphocyte % 15.4(L) 19.6 - 45.3 % 04/09/2025 4:50 AM [facility] Monocyte % 8.5 5.0 - 12.0 % 04/09/2025 4:50 AM [facility] Eosinophil % 0.6 0.3 - 6.2 % 04/09/2025 4:50 AM [facility] Basophil % 0.4 0.0 - 1.5 % 04/09/2025 4:50 AM [facility] Immature Grans % 0.3 0.0 - 0.5 % 04/09/2025 4:50 AM [facility] Neutrophils, Absolute 8.23(H) 1.70 - 7.00 10*3/mm3 04/09/2025 4:50 AM [facility] Lymphocytes, Absolute 1.69 0.70 - 3.10 10*3/mm3 04/09/2025 4:50 AM [facility] Monocytes, Absolute 0.94(H) 0.10 - 0.90 10*3/mm3 04/09/2025 4:50 [facility] Eosinophils, Absolute 0.07 0.00 - 0.40 10*3/mm3 04/09/2025 4:50 AM [facility] Basophils, Absolute 0.04 0.00 - 0.20 10*3/mm3 04/09/2025 4:50 AM [facility] Immature Grans, Absolute 0.03 0.00 - 0.05 10*3/mm3 04/09/2025 4:50 AM EDT [facility] nRBC 0.0 0.0 - 0.2 /100 WBC 04/09/2025 4:50 AM EDT [facility] Blood Venipuncture / Unknown 04/09/2025 4:18 AM EDT 04/09/2025 4:31 AM EDT Sushil Dean Jr., MD LAB BLOOD ORDERABLES Fi nal Result [facility]
[address] [place] [address], * Heparin Anti-Xa (04/09/2025 4:18 AM EDT) Heparin Anti-Xa (UFH) 0.41 0.30 - 0.70 IU/ml 04/09/2025 4:53 AM EDT [facility] Blood Venipuncture / Unknown 04/09/2025 4:18 AM EDT 04/09/2025 4:31 AM EDT Una LundbergD LAB BLOOD ORDERABLES Final R esult [facility]
[address] [place] [address], * (ABNORMAL) Basic Metabolic Panel (04/09/2025 4:18 AM EDT) Glucose 147(H) 65 - 99 mg/dL 04/09/2025 5:33 AM EDT [facility] BUN 23.0(H) 6.0 - 20.0 mg/dL 04/09/2025 5:33 AM EDT [facility] Creatinine 1.15 0.76 - 1.27 mg/dL 04/09/2025 5:33 AM EDT [facility] Sodium 135(L) 136 - 145 mmol/L 04/09/2025 5:33 AM EDT [facility] Potassium 4.2 3.5 - 5.2 mmol/L 04/09/2025 5:33 AM EDT [facility] Chloride 100 98 - 107 mmol/L 04/09/2025 5:33 AM EDT [facility] CO2 26.0 22.0 - 29.0 mmol/L 04/09/2025 5:33 AM EDT [facility] Calcium 8.2(L) 8.6 - 10.5 mg/dL 04/09/2025 5:33 AM EDT [facility] BUN/Creatinine Ratio 20.0 7.0 - 25.0 04/09/2025 5:33 AM EDT [facility] Anion Gap 9.0 5.0 - 15.0 mmol/L 04/09/2025 5:33 AM EDT [facility] eGFR 80.5 >60.0 mL/min/1.7 3 04/09/2025 5:33 AM EDT [facility] Blood Venipuncture / Unknown 04/09/2025 4:18 AM EDT 04/09/2025 4:29 AM EDT [facility] - 04/09/2025 5:33 AM EDT [...] MD LAB BLOOD ORDERABLES Fi nal Result [facility]
[address] [place] [address], * Wound Culture - Swab, Leg, Right (04/08/2025 3:40 PM EDT) Wound Culture No growth at 3 days ALIZA 04/11/2025 10:40 AM EDT [facility] Gram Stain Few (2+) WBCs seen 04/11/2025 10:40 AM EDT [facility] Gram Stain No organisms seen 04/11/2025 10:40 AM EDT [facility] Swab Structure of right lower limb / Unknown 04/08/2025 3:40 PM EDT 04/08/2025 8:05 PM EDT Sushil Dean Jr., MD MICROBIOLOGY - GENERAL ORDERABLES Final Result Performing Organization Address City/[facility]/ZIP Co de Phone Number [facility]
[address] [place] [address], [facility]
[address] [place] [address], * Anaerobic Culture - Swab, Leg, Right (04/08/2025 3:40 PM EDT) Pathologist [facility] [place] Anaerobic Culture No anaerobes isolated at 5 days ALIZA 04/13/2025 7:24 AM EDT [facility] Swab Structure of right lower limb / Unknown 04/08/2025 3:40 PM EDT 04/08/2025 8:05 PM EDT Sushil Dean Jr., MD MICROBIOLOGY - GENERAL ORDERABLES Final Result [facility]
[address] [place] [address], * Scan Slide (04/08/2025 8:41 AM EDT) RBC Morphology Normal Normal 04/08/2025 11:02 AM EDT [facility] WBC Morphology Normal Normal 04/08/2025 11:02 AM EDT [facility] Platelet Estimate Adequate Normal 04/08/2025 11:02 AM EDT [facility] Clumped Platelets Present None Seen 04/08/2025 11:02 AM EDT [facility] Blood Venipuncture / Unknown 04/08/2025 8:41 AM EDT 04/08/2025 9:10 AM EDT Una Minda PharmD LAB BLOOD ORDERABLES Final R esult [facility]
[address] [place] [address], * (ABNORMAL) CBC Auto Differential (04/08/2025 8:41 AM EDT) WBC 10.07 3.40 - 10.80 10*3/mm3 04/08/2025 11:02 AM EDT [facility] RBC 5.01 4.14 - 5.80 10*6/mm3 04/08/2025 11:02 AM EDT [facility] Hemoglobin 14.0 13.0 - 17.7 g/dL 04/08/2025 11:02 AM EDT [facility] Hematocrit 42.7 37.5 - 51.0 % 04/08/2025 11:02 AM EDT [facility] MCV 85.2 79.0 - 97.0 fL 04/08/2025 11:02 AM EDT [facility] MCH 27.9 26.6 - 33.0 pg 04/08/2025 11:02 AM EDT [facility] MCHC 32.8 31.5 - 35.7 g/dL 04/08/2025 11:02 AM EDT [facility] RDW 12.6 12.3 - 15.4 % 04/08/2025 11:02 AM EDT [facility] RDW-SD 38.9 37.0 - 54.0 fl 04/08/2025 11:02 AM [facility] MPV 11.0 6.0 - 12.0 fL 04/08/2025 11:02 AM [facility] Platelets 118(L) 140 - 450 10*3/mm3 04/08/2025 11:02 AM [facility] Neutrophil % 85.1(H) 42.7 - 76.0 % 04/08/2025 11:02 AM [facility] Lymphocyte % 9.3(L) 19.6 - 45.3 % 04/08/2025 11:02 AM [facility] Monocyte % 4.6(L) 5.0 - 12.0 % 04/08/2025 11:02 AM [facility] Eosinophil % 0.3 0.3 - 6.2 % 04/08/2025 11:02 AM [facility] Basophil % 0.2 0.0 - 1.5 % 04/08/2025 11:02 AM [facility] Immature Grans % 0.5 0.0 - 0.5 % 04/08/2025 11:02 AM [facility] Neutrophils, Absolute 8.57(H) 1.70 - 7.00 10*3/mm3 04/08/2025 11:02 AM [facility] Lymphocytes, Absolute 0.94 0.70 - 3.10 10*3/mm3 04/08/2025 11:02 AM [facility] Monocytes, Absolute 0.46 0.10 - 0.90 10*3/mm3 04/08/2025 11:02 AM [facility] Eosinophils, Absolute 0.03 0.00 - 0.40 10*3/mm3 04/08/2025 11:02 AM [facility] Basophils, Absolute 0.02 0.00 - 0.20 10*3/mm3 04/08/2025 11:02 AM [facility] Immature Grans, Absolute 0.05 0.00 - 0.05 10*3/mm3 04/08/2025 11:02 AM EDT [facility] nRBC 0.0 0.0 - 0.2 /100 WBC 04/08/2025 11:02 AM EDT [facility] Blood Venipuncture / Unknown 04/08/2025 8:41 AM EDT 04/08/2025 9:10 AM EDT Una Perla PharmD LAB BLOOD ORDERABLES Final R esult [facility]
[address] [place] [address], * (ABNORMAL) Basic Metabolic Panel (04/08/2025 8:41 AM EDT) Glucose 125(H) 65 - 99 mg/dL 04/08/2025 9:51 AM EDT [facility] BUN 13.2 6.0 - 20.0 mg/dL 04/08/2025 9:51 AM EDT [facility] Creatinine 0.69(L) 0.76 - 1.27 mg/dL 04/08/2025 9:51 AM EDT [facility] Sodium 136 136 - 145 mmol/L 04/08/2025 9:51 AM EDT [facility] Potassium 4.6 3.5 - 5.2 mmol/L 04/08/2025 9:51 AM EDT [facility] Chloride 102 98 - 107 mmol/L 04/08/2025 9:51 AM EDT [facility] CO2 23.5 22.0 - 29.0 mmol/L 04/08/2025 9:51 AM EDT [facility] Calcium 8.4(L) 8.6 - 10.5 mg/dL 04/08/2025 9:51 AM EDT [facility] BUN/Creatinine Ratio 19.1 7.0 - 25.0 04/08/2025 9:51 AM EDT [facility] Anion Gap 10.5 5.0 - 15.0 mmol/L 04/08/2025 9:51 AM EDT [facility] eGFR 117.0 >60.0 mL/min/1.7 3 04/08/2025 9:51 AM EDT [facility] Blood Venipuncture / Unknown 04/08/2025 8:41 AM EDT 04/08/2025 9:09 AM EDT Narrative [facility] - 04/08/2025 9:51 AM EDT [...] ORDERABLES Fi nal Result Performing Organization Address City/[facility]/ZIP Co de Phone Number [facility]
[address] [place] [address], * Heparin Anti-Xa (04/08/2025 8:41 AM EDT) Heparin Anti-Xa ([facility]) 0.33 0.30 - 0.70 IU/ml 04/08/2025 9:40 AM EDT [facility] Blood Venipuncture / Unknown 04/08/2025 8:41 AM EDT 04/08/2025 9:10 AM EDT us Sushil Dean Jr., MD LAB BLOOD ORDERABLES Fi nal Result [facility]
[address] [place] [address], * FL C Arm During Surgery (04/07/2025 9:32 PM EDT) Narrative SYSTEMGENERATED, DOCUMENTATION - 04/07/2025 9:38 PM EDT This procedure was auto-finalized with no dictation required. us Sushil Dean Jr., MD IMG FLUOROSCOPY ORDERAB LES Final Result * Wound Culture - Swab, Leg, Right (04/07/2025 9:14 PM EDT) Wound Culture No growth at 3 days ALIZA 04/11/2025 10:40 AM EDT [facility] Gram Stain Occasional WBCs seen 04/11/2025 10:40 AM EDT [facility] Gram Stain No organisms seen 04/11/2025 10:40 AM EDT [facility] Swab Structure of right lower limb / Unknown Collection / Unknown 04/07/2025 9:14 PM EDT 04/08/2025 4:36 AM EDT us Sushil Dean Jr., MD MICROBIOLOGY - GENERAL ORDERABLES Final Result Performing Organization Address City/[facility]/ZIP Co de Phone Number [facility]
[address] [place] [address], [facility]
[address] [place] [address], * Anaerobic Culture - Swab, Leg, Right (04/07/2025 9:14 PM EDT) Anaerobic Culture No anaerobes isolated at 5 days ALIZA 04/13/2025 7:21 AM EDT [facility] Swab Structure of right lower limb / Unknown Collection / Unknown 04/07/2025 9:14 PM EDT 04/08/2025 4:36 AM EDT us Sushil Dean Jr., MD MICROBIOLOGY - GENERAL ORDERABLES Final Result [facility]
[address] [place] [address], * Anaerobic Culture - Tissue, Leg (04/07/2025 9:13 PM EDT) Pathologist [facility] [place] Anaerobic Culture No anaerobes isolated at 5 days ALIZA 04/13/2025 7:21 AM EDT [facility] Tissue Lower limb structure / Unknown Collection / Unknown 04/07/2025 9:13 PM EDT 04/08/2025 4:54 AM EDT Jason Álvarez DO MICROBIOLOGY - GENERAL ORDERABLE S Final Result [facility]
[address] [place] [address], * Tissue / Bone Culture - Tissue, Leg, Right (04/07/2025 9:13 PM EDT) [facility] Tissue Culture No growth at 3 days ALIZA 04/11/2025 10:36 AM EDT [facility] Gram Stain Rare (1+) WBCs seen 04/11/2025 10:36 AM EDT [facility] Gram Stain No organisms seen 04/11/2025 10:36 AM EDT [facility] Tissue Structure of right lower limb / Unknown 04/07/2025 9:13 PM EDT 04/08/2025 4:54 AM EDT Sushil Dean Jr., MD MICROBIOLOGY - GENERAL ORDERABLES Final Result [facility]
[address] [place] [address], [facility]
[address] [place] [address], * (ABNORMAL) Wound Culture - Swab, Leg, Right (04/07/2025 9:07 PM EDT) Pathologist [facility] [place] Wound Culture Light growth (2+) Staphylococcus aureus, MRSA(A) ALIZA 04/10/2025 10:38 AM EDT [facility] LABORATORY Comment: Methicillin resistant Staphylococcus aureus, Patient may be an isolation risk. Gram Stain Few (2+) WBCs seen 04/10/2025 10:38 AM EDT [facility] Gram Stain No organisms seen 10:38 AM EDT [facility] Swab Structure of right lower [...] MD MICROBIOLOGY - GENERAL ORDERABLES Final Result [facility]
[address] [place] [address], [place] [phone] [facility]
[address] [place] [address], [place] [phone] * Anaerobic Culture - Swab, Leg, Right (04/07/2025 9:07 PM EDT) Anaerobic Culture No anaerobes isolated at 5 days ALIZA 04/13/2025 7:21 AM EDT [facility] Swab Structure of right lower limb / Unknown Collection / Unknown 04/07/2025 9:07 PM EDT 04/08/2025 4:36 AM EDT us Sushil Dean Jr., MD MICROBIOLOGY - GENERAL ORDERABLES Final Result [facility]
[address] [place] [address], * Heparin Anti-Xa (04/07/2025 9:10 AM EDT) [facility] Heparin Anti-Xa (UFH) 0.30 0.30 - 0.70 IU/ml 04/07/2025 10:12 AM EDT [facility] Blood Venipuncture / Unknown 04/07/2025 9:10 AM EDT 04/07/2025 9:38 AM EDT nUa Perla PharmD LAB BLOOD ORDERABLES Final R esult [facility]
[address] [place] [address], * (ABNORMAL) CBC Auto Differential (04/07/2025 9:10 AM EDT) [facility] WBC 8.63 3.40 - 10.80 10*3/mm3 04/07/2025 9:50 AM EDT [facility] RBC 5.23 4.14 - 5.80 10*6/mm3 04/07/2025 9:50 AM EDT [facility] Hemoglobin 14.7 13.0 - 17.7 g/dL 04/07/2025 9:50 AM EDT [facility] Hematocrit 44.8 37.5 - 51.0 % 04/07/2025 9:50 AM EDT [facility] MCV 85.7 79.0 - 97.0 fL 04/07/2025 9:50 AM EDT [facility] MCH 28.1 26.6 - 33.0 pg 04/07/2025 9:50 AM EDT [facility] MCHC 32.8 31.5 - 35.7 g/dL 04/07/2025 9:50 AM EDT [facility] RDW 12.8 12.3 - 15.4 % 04/07/2025 9:50 AM [facility] RDW-SD 39.9 37.0 - 54.0 fl 04/07/2025 9:50 AM [facility] MPV 10.8 6.0 - 12.0 fL 04/07/2025 9:50 AM [facility] Platelets 149 140 - 450 10*3/mm3 04/07/2025 9:50 AM [facility] Neutrophil % 66.7 42.7 - 76.0 % 04/07/2025 9:50 AM [facility] Lymphocyte % 20.5 19.6 - 45.3 % 04/07/2025 9:50 AM [facility] Monocyte % 9.8 5.0 - 12.0 % 04/07/2025 9:50 AM [facility] Eosinophil % 2.1 0.3 - 6.2 % 04/07/2025 9:50 AM [facility] Basophil % 0.3 0.0 - 1.5 % 04/07/2025 9:50 AM [facility] Immature Grans % 0.6(H) 0.0 - 0.5 % 04/07/2025 9:50 AM [facility] Neutrophils, Absolute 5.75 1.70 - 7.00 10*3/mm3 04/07/2025 9:50 AM [facility] Lymphocytes, Absolute 1.77 0.70 - 3.10 10*3/mm3 04/07/2025 9:50 AM [facility] Monocytes, Absolute 0.85 0.10 - 0.90 10*3/mm3 04/07/2025 9:50 AM [facility] Eosinophils, Absolute 0.18 0.00 - 0.40 10*3/mm3 04/07/2025 9:50 AM [facility] Basophils, Absolute 0.03 0.00 - 0.20 10*3/mm3 04/07/2025 9:50 AM [facility] Immature Grans, Absolute 0.05 0.00 - 0.05 10*3/mm3 04/07/2025 9:50 AM EDT [facility] nRBC 0.0 0.0 - 0.2 /100 WBC 04/07/2025 9:50 AM EDT [facility] Blood Venipuncture / Unknown 04/07/2025 9:10 AM EDT 04/07/2025 9:38 AM EDT Jasonalfonso Álvarez LAB BLOOD ORDERABLES Final Resul t [facility]
[address] [place] [address], * (ABNORMAL) Basic Metabolic Panel (04/07/2025 9:10 AM EDT) Glucose 112(H) 65 - 99 mg/dL 04/07/2025 10:19 AM EDT [facility] BUN 13.1 6.0 - 20.0 mg/dL 04/07/2025 10:19 AM EDT [facility] Creatinine 0.77 0.76 - 1.27 mg/dL 04/07/2025 10:19 AM EDT [facility] Sodium 139 136 - 145 mmol/L 04/07/2025 10:19 AM EDT [facility] Potassium 4.2 3.5 - 5.2 mmol/L 04/07/2025 10:19 AM EDT [facility] Comment:Specimen hemolyzed. Result may be falsely elevated. Chloride 105 98 - 107 mmol/L 04/07/2025 10:19 AM EDT [facility] CO2 24.8 22.0 - 29.0 mmol/L 04/07/2025 10:19 AM EDT [facility] Calcium 8.6 8.6 - 10.5 mg/dL 04/07/2025 10:19 AM EDT [facility] BUN/Creatinine Ratio 17.0 7.0 - 25.0 04/07/2025 10:19 AM EDT [facility] Anion Gap 9.2 5.0 - 15.0 mmol/L 04/07/2025 10:19 AM EDT [facility] eGFR 113.2 >60.0 mL/min/1.7 3 04/07/2025 10:19 AM EDT [facility] Blood Venipuncture / Unknown 04/07/2025 9:10 AM EDT 04/07/2025 9:38 AM EDT Narrative [facility] - 04/07/2025 10:19 AM EDT [...] Álvarez LAB BLOOD ORDERABLES Final Resul t [facility]
[address] [place] [address], * MRI Tibia Fibula Right With & [...] Buenrostro 04/07/2025 9:58 AM EDT Workstation ID: [id number] Narrative 04/07/2025 9:58 AM EDT MRI TIBIA [...] Buenrostro 04/07/2025 9:58 AM EDT Workstation ID: [id number] Sushil Dean Jr., MD IM MRI ORDERABLES Mary Beth l Result * Heparin Anti-Xa (04/07/2025 1:42 AM EDT) [facility] Heparin Anti-Xa (UFH) 0.38 0.30 - 0.70 IU/ml 04/07/2025 2:14 AM EDT [facility] Blood Venipuncture / Unknown 04/07/2025 1:42 AM EDT 04/07/2025 1:54 AM EDT Chelsie Turpin [facility] LAB BLOOD ORDERABLES Final R esult [facility]
[address] [place] [address], * Heparin Anti-Xa (04/06/2025 7:16 PM EDT) [facility] Heparin Anti-Xa (UFH) 0.33 0.30 - 0.70 IU/ml 04/06/2025 7:50 PM EDT [facility] Blood Venipuncture / Unknown 04/06/2025 7:16 PM EDT 04/06/2025 7:35 PM EDT Cherri Beatty RP LAB BLOOD ORDERABLES Final Res ult Performing Organization Address City/[facility]/ZIP Co de Phone Number [facility]
[address] [place] [address], * Potassium (04/06/2025 7:16 PM EDT) Potassium 4.0 3.5 - 5.2 mmol/L 04/06/2025 7:53 PM EDT [facility] Blood Venipuncture / Unknown 04/06/2025 7:16 PM EDT 04/06/2025 7:35 PM EDT Jason Álvarez DO LAB BLOOD ORDERABLES Final Resul t Performing Organization Address [facility] de Phone Number [facility]
[address] [place] [address], * (ABNORMAL) Heparin Anti-Xa (04/06/2025 12:36 PM EDT) Heparin Anti-Xa (UFH) 0.24(L) 0.30 - 0.70 IU/ml 04/06/2025 1:23 PM EDT [facility] Blood Venipuncture / Unknown 04/06/2025 12:36 PM EDT 04/06/2025 1:07 PM EDT Una LundbergD LAB BLOOD ORDERABLES Final R esult Performing Organization Address [facility] Co de Phone Number [facility]
[address] [place] [address], * (ABNORMAL) Heparin Anti-Xa (04/06/2025 3:42 AM EDT) Heparin Anti-Xa (UFH) 0.25(L) 0.30 - 0.70 IU/ml 04/06/2025 5:30 AM EDT [facility] Blood Venipuncture / Unknown 04/06/2025 3:42 AM EDT 04/06/2025 4:59 AM EDT Chelsie Turpin [facility] LAB BLOOD ORDERABLES Final R esult [facility]
[address] [place] [address], * (ABNORMAL) Basic Metabolic Panel (04/06/2025 3:42 AM EDT) Pathologist [facility] Glucose 94 65 - 99 mg/dL 04/06/2025 5:59 AM EDT [facility] BUN 12.8 6.0 - 20.0 mg/dL 04/06/2025 5:59 AM EDT [facility] Creatinine 0.80 0.76 - 1.27 mg/dL 04/06/2025 5:59 AM EDT [facility] Sodium 138 136 - 145 mmol/L 04/06/2025 5:59 AM EDT [facility] Potassium 3.6 3.5 - 5.2 mmol/L 04/06/2025 5:59 AM EDT [facility] Chloride 103 98 - 107 mmol/L 04/06/2025 5:59 AM EDT [facility] CO2 24.2 22.0 - 29.0 mmol/L 04/06/2025 5:59 AM EDT [facility] Calcium 8.0(L) 8.6 - 10.5 mg/dL 04/06/2025 5:59 AM EDT [facility] BUN/Creatinine Ratio 16.0 7.0 - 25.0 04/06/2025 5:59 AM EDT [facility] Anion Gap 10.8 5.0 - 15.0 mmol/L 04/06/2025 5:59 AM EDT [facility] eGFR 111.9 >60.0 mL/min/1.7 3 04/06/2025 5:59 AM EDT [facility] Blood Venipuncture / Unknown 04/06/2025 3:42 AM EDT 04/06/2025 5:20 AM EDT [facility] - 04/06/2025 5:59 AM EDT [...] DO LAB BLOOD ORDERABLES Final Resul t [facility]
[address] [place] [address], * (ABNORMAL) CBC Auto Differential (04/06/2025 3:41 AM EDT) WBC 10.86(H) 3.40 - 10.80 10*3/mm3 04/06/2025 5:04 AM EDT [facility] RBC 5.08 4.14 - 5.80 10*6/mm3 04/06/2025 5:04 AM EDT [facility] Hemoglobin 13.9 13.0 - 17.7 g/dL 04/06/2025 5:04 AM EDT [facility] Hematocrit 43.7 37.5 - 51.0 % 04/06/2025 5:04 AM EDT [facility] MCV 86.0 79.0 - 97.0 fL 04/06/2025 5:04 AM [facility] MCH 27.4 26.6 - 33.0 pg 04/06/2025 5:04 AM [facility] MCHC 31.8 31.5 - 35.7 g/dL 04/06/2025 5:04 AM [facility] RDW 12.8 12.3 - 15.4 % 04/06/2025 5:04 AM [facility] RDW-SD 40.0 37.0 - 54.0 fl 04/06/2025 5:04 AM [facility] MPV 11.7 6.0 - 12.0 fL 04/06/2025 5:04 AM [facility] Platelets 115(L) 140 - 450 10*3/mm3 04/06/2025 5:04 AM [facility] Neutrophil % 65.3 42.7 - 76.0 % 04/06/2025 5:04 AM [facility] Lymphocyte % 20.5 19.6 - 45.3 % 04/06/2025 5:04 AM [facility] Monocyte % 11.8 5.0 - 12.0 % 04/06/2025 5:04 AM [facility] Eosinophil % 1.8 0.3 - 6.2 % 04/06/2025 5:04 AM [facility] Basophil % 0.3 0.0 - 1.5 % 04/06/2025 5:04 AM [facility] Immature Grans % 0.3 0.0 - 0.5 % 04/06/2025 5:04 AM [facility] Neutrophils, Absolute 7.09(H) 1.70 - 7.00 10*3/mm3 04/06/2025 5:04 AM [facility] Lymphocytes, Absolute 2.23 0.70 - 3.10 10*3/mm3 04/06/2025 5:04 AM [facility] Monocytes, Absolute 1.28(H) 0.10 - 0.90 10*3/mm3 04/06/2025 5:04 AM EDT [facility] Eosinophils, Absolute 0.20 0.00 - 0.40 10*3/mm3 04/06/2025 5:04 AM EDT [facility] Basophils, Absolute 0.03 0.00 - 0.20 10*3/mm3 04/06/2025 5:04 AM EDT [facility] Immature Grans, Absolute 0.03 0.00 - 0.05 10*3/mm3 04/06/2025 5:04 AM EDT [facility] nRBC 0.0 0.0 - 0.2 /100 WBC 04/06/2025 5:04 AM EDT [facility] Blood Venipuncture / Unknown 04/06/2025 3:41 AM EDT 04/06/2025 4:58 AM EDT Jason Álvarez DO LAB BLOOD ORDERABLES Final Resul t Performing Organization Address City/[facility]/ZIP Co de Phone Number [facility]
[address] [place] [address], [place] [phone] * Heparin Anti-Xa (04/05/2025 8:43 PM EDT) [facility] Heparin Anti-Xa (UFH) 0.38 0.30 - 0.70 IU/ml 04/05/2025 9:09 PM EDT [facility] Blood Venipuncture / Unknown 04/05/2025 8:43 PM EDT 04/05/2025 8:55 PM EDT us Cherri Beatty [facility] LAB BLOOD ORDERABLES Final Res ult Performing Organization Address City/[facility]/ZIP Co de Phone Number [facility]
[address] [place] [address], [place] [phone] * CK (04/05/2025 12:15 PM EDT) Pathologist [facility] [place] Creatine Kinase 140 20 - 200 U/L 04/05/2025 1:31 PM EDT [facility] Blood Venipuncture / Unknown 04/05/2025 12:15 PM EDT 04/05/2025 1:03 PM EDT Carlton Mead MD LAB BLOOD ORDERABLES Final R esult Performing Organization Address City/[facility]/ZIP Co de Phone Number [facility]
[address] [place] [address], * (ABNORMAL) Heparin Anti-Xa (04/05/2025 12:15 PM EDT) Heparin Anti-Xa (UFH) 0.17(L) 0.30 - 0.70 IU/ml 04/05/2025 1:21 PM EDT [facility] Blood Venipuncture / Unknown 04/05/2025 12:15 PM EDT 04/05/2025 1:04 PM EDT Una Perla PharmD LAB BLOOD ORDERABLES Final R esult [facility]
[address] [place] [address], * (ABNORMAL) aPTT (04/05/2025 3:54 AM EDT) PTT 35.3(L) 60.0 - 90.0 seconds 04/05/2025 4:31 AM EDT [facility] Blood Venipuncture / Unknown 04/05/2025 3:54 AM EDT 04/05/2025 4:15 AM EDT Narrative [facility] - 04/05/2025 4:31 AM EDT PTT = The equivalent PTT values for the therapeutic range of heparin levels at 0.3 to 0.5 U/ml are 60 to 70 seconds. Una Perla PharmD LAB BLOOD ORDERABLES Final R esult [facility]
[address] [place] [address], * Heparin Anti-Xa (04/05/2025 3:54 AM EDT) Pathologist [facility] [place] Heparin Anti-Xa (UFH) 0.30 0.30 - 0.70 IU/ml 04/05/2025 4:32 AM EDT [facility] Blood Venipuncture / Unknown 04/05/2025 3:54 AM EDT 04/05/2025 4:15 AM EDT Una SingWhoD LAB BLOOD ORDERABLES Final R esult Performing Organization Address City/[facility]/ZIP Co de Phone Number [facility]
[address] [place] [address], * (ABNORMAL) CBC Auto Differential (04/05/2025 3:54 AM EDT) Pathologist [facility] [place] WBC 11.18(H) 3.40 - 10.80 10*3/mm3 04/05/2025 4:20 AM EDT [facility] RBC 5.00 4.14 - 5.80 10*6/mm3 04/05/2025 4:20 AM EDT [facility] Hemoglobin 13.9 13.0 - 17.7 g/dL 04/05/2025 4:20 AM EDT [facility] Hematocrit 42.4 37.5 - 51.0 % 04/05/2025 4:20 AM EDT [facility] MCV 84.8 79.0 - 97.0 fL 04/05/2025 4:20 AM EDT [facility] MCH 27.8 26.6 - 33.0 pg 04/05/2025 4:20 AM EDT [facility] MCHC 32.8 31.5 - 35.7 g/dL 04/05/2025 4:20 AM [facility] RDW 12.9 12.3 - 15.4 % 04/05/2025 4:20 AM [facility] RDW-SD 39.7 37.0 - 54.0 fl 04/05/2025 4:20 AM [facility] MPV 10.2 6.0 - 12.0 fL 04/05/2025 4:20 AM [facility] Platelets 160 140 - 450 10*3/mm3 04/05/2025 4:20 AM [facility] Neutrophil % 73.5 42.7 - 76.0 % 04/05/2025 4:20 AM [facility] Lymphocyte % 14.0(L) 19.6 - 45.3 % 04/05/2025 4:20 AM [facility] Monocyte % 11.0 5.0 - 12.0 % 04/05/2025 4:20 AM [facility] Eosinophil % 0.8 0.3 - 6.2 % 04/05/2025 4:20 AM [facility] Basophil % 0.3 0.0 - 1.5 % 04/05/2025 4:20 AM [facility] Immature Grans % 0.4 0.0 - 0.5 % 04/05/2025 4:20 AM [facility] Neutrophils, Absolute 8.23(H) 1.70 - 7.00 10*3/mm3 04/05/2025 4:20 AM [facility] Lymphocytes, Absolute 1.56 0.70 - 3.10 10*3/mm3 04/05/2025 4:20 AM [facility] Monocytes, Absolute 1.23(H) 0.10 - 0.90 10*3/mm3 04/05/2025 4:20 AM [facility] Eosinophils, Absolute 0.09 0.00 - 0.40 10*3/mm3 04/05/2025 4:20 AM [facility] Basophils, Absolute 0.03 0.00 - 0.20 10*3/mm3 04/05/2025 4:20 AM EDT [facility] Immature Grans, Absolute 0.04 0.00 - 0.05 10*3/mm3 04/05/2025 4:20 AM EDT [facility] nRBC 0.0 0.0 - 0.2 /100 WBC 04/05/2025 4:20 AM EDT [facility] Blood Venipuncture / Unknown 04/05/2025 3:54 AM EDT 04/05/2025 4:16 AM EDT Una Perla PharmD LAB BLOOD ORDERABLES Final R esult [facility]
[address] [place] [address], * (ABNORMAL) Basic Metabolic Panel (04/05/2025 3:54 AM EDT) Glucose 152(H) 65 - 99 mg/dL 04/05/2025 4:40 AM EDT [facility] BUN 17.3 6.0 - 20.0 mg/dL 04/05/2025 4:40 AM EDT [facility] Creatinine 0.92 0.76 - 1.27 mg/dL 04/05/2025 4:40 AM EDT [facility] Sodium 136 136 - 145 mmol/L 04/05/2025 4:40 AM EDT [facility] Potassium 3.9 3.5 - 5.2 mmol/L 04/05/2025 4:40 AM EDT [facility] Chloride 103 98 - 107 mmol/L 04/05/2025 4:40 AM EDT [facility] CO2 24.0 22.0 - 29.0 mmol/L 04/05/2025 4:40 AM EDT [facility] Calcium 7.8(L) 8.6 - 10.5 mg/dL 04/05/2025 4:40 AM EDT [facility] BUN/Creatinine Ratio 18.8 7.0 - 25.0 04/05/2025 4:40 AM EDT [facility] Anion Gap 9.0 5.0 - 15.0 mmol/L 04/05/2025 4:40 AM EDT [facility] eGFR 105.2 >60.0 mL/min/1.7 3 04/05/2025 4:40 AM EDT [facility] Blood Venipuncture / Unknown 04/05/2025 3:54 AM EDT 04/05/2025 4:15 AM EDT [facility] - 04/05/2025 4:40 AM EDT [...] MD LAB BLOOD ORDERABLES Final Re sult [facility]
[address] [place] [address], * (ABNORMAL) aPTT (04/05/2025 12:18 AM EDT) PTT 33.6(L) 60.0 - 90.0 seconds 04/05/2025 12:53 AM EDT [facility] Blood Venipuncture / Unknown 04/05/2025 12:18 AM EDT 04/05/2025 12:37 AM EDT [facility] - 04/05/2025 12:53 AM EDT PTT = The equivalent PTT values for the therapeutic range of heparin levels at 0.3 to 0.5 U/ml are 60 to 70 seconds. [employer] LAB BLOOD ORDERABLES Final R esult Performing Organization Address City/[facility]/ZIP Co de Phone Number [facility]
[address] [place] [address], * (ABNORMAL) Protime-INR (04/05/2025 12:18 AM EDT) Protime 15.9(H) 12.2 - 15.3 Seconds 04/05/2025 12:53 AM EDT [facility] INR 1.19(H) 0.89 - 1.12 04/05/2025 12:53 AM EDT [facility] Blood Venipuncture / Unknown 04/05/2025 12:18 AM EDT 04/05/2025 12:37 AM EDT [employer] [facility] LAB BLOOD ORDERABLES Final R esult Performing Organization Address [facility] Co de Phone Number [facility]
[address] [place] [address], * Heparin Anti-Xa (04/05/2025 12:18 AM EDT) Pathologist [facility] Heparin Anti-Xa (UFH) 0.39 0.30 - 0.70 IU/ml 04/05/2025 12:54 AM EDT [facility] Blood Venipuncture / Unknown 04/05/2025 12:18 AM EDT 04/05/2025 12:37 AM EDT [employer] [facility] LAB BLOOD ORDERABLES Final R esult Performing Organization Address City/[facility]/ZIP Co de Phone Number [facility]
[address] [place] [address], * MRI Tibia Fibula Right With & [...] MD 04/04/2025 11:00 PM EDT Workstation ID: [id number] Narrative 04/04/2025 11:00 PM EDT MRI TIBIA [...] MD 04/04/2025 11:00 PM EDT Workstation ID: [id number] Leonora Shepherd MD IMG MRI ORDERABLES Final Resu lt * POC Creatinine (04/04/2025 2:49 PM EDT) Creatinine 1.10 0.60 - 1.30 mg/dL 04/07/2025 7:14 PM EDT [facility] Comment:Serial Number: [id number] 7Operator: [id number] Venous Blood 04/04/2025 2:49 PM EDT 04/07/2025 7:14 PM EDT Jason Álvarez DO POINT OF CARE TEST ORDERABLES Fi nal Result [facility]
[address] [place] [address], * (ABNORMAL) CBC Auto Differential (04/04/2025 2:47 PM EDT) [facility] WBC 12.72(H) 3.40 - 10.80 10*3/mm3 04/04/2025 2:56 PM EDT [facility] RBC 5.64 4.14 - 5.80 10*6/mm3 04/04/2025 2:56 PM EDT [facility] Hemoglobin 15.3 13.0 - 17.7 g/dL 04/04/2025 2:56 PM EDT [facility] Hematocrit 47.9 37.5 - 51.0 % 04/04/2025 2:56 PM EDT [facility] MCV 84.9 79.0 - 97.0 fL 04/04/2025 2:56 PM EDT [facility] MCH 27.1 26.6 - 33.0 pg 04/04/2025 2:56 PM EDT [facility] MCHC 31.9 31.5 - 35.7 g/dL 04/04/2025 2:56 PM EDT [facility] RDW 13.1 12.3 - 15.4 % 04/04/2025 2:56 PM EDT [facility] RDW-SD 40.3 37.0 - 54.0 fl 04/04/2025 2:56 PM EDT [facility] MPV 9.4 6.0 - 12.0 fL 04/04/2025 2:56 PM EDT [facility] Platelets 232 140 - 450 10*3/mm3 04/04/2025 2:56 PM EDT [facility] Neutrophil % 74.9 42.7 - 76.0 % 04/04/2025 2:56 PM EDT [facility] Lymphocyte % 13.1(L) 19.6 - 45.3 % 04/04/2025 2:56 PM EDT [facility] Monocyte % 11.2 5.0 - 12.0 % 04/04/2025 2:56 PM EDT [facility] Eosinophil % 0.4 0.3 - 6.2 % 04/04/2025 2:56 PM EDT [facility] Basophil % 0.2 0.0 - 1.5 % 04/04/2025 2:56 PM EDT [facility] Immature Grans % 0.2 0.0 - 0.5 % 04/04/2025 2:56 PM EDT [facility] Neutrophils, Absolute 9.52(H) 1.70 - 7.00 10*3/mm3 04/04/2025 2:56 PM EDT [facility] Lymphocytes, Absolute 1.66 0.70 - 3.10 10*3/mm3 04/04/2025 2:56 PM EDT [facility] Monocytes, Absolute 1.43(H) 0.10 - 0.90 10*3/mm3 04/04/2025 2:56 PM EDT [facility] Eosinophils, Absolute 0.05 0.00 - 0.40 10*3/mm3 04/04/2025 2:56 PM EDT [facility] Basophils, Absolute 0.03 0.00 - 0.20 10*3/mm3 04/04/2025 2:56 PM EDT [facility] Immature Grans, Absolute 0.03 0.00 - 0.05 10*3/mm3 04/04/2025 2:56 PM EDT [facility] nRBC 0.0 0.0 - 0.2 /100 WBC 04/04/2025 2:56 PM EDT [facility] Blood Venipuncture / Unknown 04/04/2025 2:47 PM EDT 04/04/2025 2:52 PM EDT us Mario Crowley DO LAB BLOOD ORDERABLES Fin al Result [facility]
[address] [place] [address], * (ABNORMAL) C-reactive Protein (04/04/2025 2:47 PM EDT) C-Reactive Protein 8.57(H) 0.00 - 0.50 mg/dL 04/04/2025 3:26 PM EDT [facility] Blood Venipuncture / Unknown 04/04/2025 2:47 PM EDT 04/04/2025 2:52 PM EDT [facility] BLOOD ORDERABLES Fin al Result Performing Organization Address City/[facility]/ZIP Co de Phone Number [facility]
[address] [place] [address], * (ABNORMAL) Sedimentation Rate (04/04/2025 2:47 PM EDT) Pathologist [facility] Sed Rate 51(H) 0 - 15 mm/hr 04/04/2025 3:06 PM EDT [facility] Blood Venipuncture / Unknown 04/04/2025 2:47 PM EDT 04/04/2025 2:52 PM EDT [facility] [place] LAB BLOOD ORDERABLES Fin al Result Performing Organization Address City/[facility] Co de Phone Number [facility]
[address] [place] [address], * Comprehensive Metabolic Panel (04/04/2025 2:47 PM EDT) Pathologist [facility] Glucose 90 65 - 99 mg/dL 04/04/2025 3:26 PM EDT [facility] BUN 18.3 6.0 - 20.0 mg/dL 04/04/2025 3:26 PM EDT [facility] Creatinine 0.94 0.76 - 1.27 mg/dL 04/04/2025 3:26 PM EDT [facility] Sodium 136 136 - 145 mmol/L 04/04/2025 3:26 PM EDT [facility] Potassium 3.8 3.5 - 5.2 mmol/L 04/04/2025 3:26 PM EDT [facility] Chloride 100 98 - 107 mmol/L 04/04/2025 3:26 PM EDT [facility] CO2 25.3 22.0 - 29.0 mmol/L 04/04/2025 3:26 PM EDT [facility] Calcium 8.6 8.6 - 10.5 mg/dL 04/04/2025 3:26 PM T [facility] Total Protein 7.3 6.0 - 8.5 g/dL 04/04/2025 3:26 PM EDT [facility] Albumin 4.1 3.5 - 5.2 g/dL 04/04/2025 3:26 PM T [facility] ALT (SGPT) 26 1 - 41 U/L 04/04/2025 3:26 PM [facility] AST (SGOT) 25 1 - 40 U/L 04/04/2025 3:26 PM T [facility] Alkaline Phosphatase 106 39 - 117 U/L 04/04/2025 3:26 PM T [facility] Total Bilirubin 1.0 0.0 - 1.2 mg/dL 04/04/2025 3:26 PM T [facility] Globulin 3.2 gm/dL 04/04/2025 3:26 PM [facility] Comment:Calculated Result A/G Ratio 1.3 g/dL 04/04/2025 3:26 PM [facility] BUN/Creatinine Ratio 19.5 7.0 - 25.0 04/04/2025 3:26 PM [facility] Anion Gap 10.7 5.0 - 15.0 mmol/L 04/04/2025 3:26 PM [facility] eGFR 102.5 >60.0 mL/min/1.7 3 04/04/2025 3:26 PM [facility] Blood Venipuncture / Unknown 04/04/2025 2:47 PM EDT 04/04/2025 2:52 PM EDT [facility] - 04/04/2025 3:26 PM [...] DO LAB BLOOD ORDERABLES Fin al Result [facility]
[address] [place] [address], documented in this encounter Visit Diagnoses Diagnosis [...] BPA Driven Protocol Open Order & [facility] Electrolyte Replacement Protocol Algorithm to View Details [...] BPA Driven Protocol Open Order & [facility] Electrolyte Replacement Protocol Algorithm to View Details [...] Salazar, KELL)1943 (Given - Provider: Anahy Marcelino, BLOW DOWN OPERATOR)[id number] (Canceled Entry - Provider: Anahy Marcelino BLOW DOWN OPERATOR - Comment: previously given) 0837 (Given [...] Continuous Medication Order 04/09/2025 04/10/2025 04/11/2025 heparin 36557 units/250 mL (100 units/mL) in 0.45 % [...] (Not Given: See Alt - Provider: Shirley aHrt RN)1508 (Not Given: See Alt - Provider: [...] BPA Driven Protocol Open Order & [facility] Electrolyte Replacement Protocol Algorithm to View Details [...] documented as of this encounter Care Teams Glass Bulb Silverer Relationship Specialty Start Date End Date Provider, [place] [address] PCP - General 05/09/23 documented as of this encounter
--- OUTSIDE RECORDS SUMMARY | 2025-04-07 20:36 | XMS_ITS | Encounter Summary ---
Author Organization [facility] Address [address] [place] [address] Care Team Providers Care Account Services Specialist Name Role Phone Provider, No Known Primary Care Provider Unavail able Reason for Visit * Auth/Cert Specialty Diagnoses / Procedures Referred By Bulmaro muniz Referred To Contact Diagnoses Right BKA infection Referral ID Status Reason Start Date Expiration Date Visits Re quested Visits Authorized [id number] 1 1 Encounter Details Date Type Department Care Team (Late st Contact Info) Description 04/07/2025 8:36 PM EDT Anesthesia Event [facility] OR [address] [place] [address] Luci Alonso DO [address] [place] [address] Anesthesia Record Procedure Summary Procedure Name Responsible [...] oz pur e alcohol) [facility] Utilities Answer Date Recorded In the past 12 months has [employer], gas, oil, or water [employer] threatened to shut off services in your [...] PACU on O2NC, breathing comfortably. Report to CABINET AND TRIM INSTALLER at bedside. VSS. * Anesthesia Procedure Notes [...] Musculoskeletal Abdominal Substance History - negative use PEDIATRIC HOSPITALIST Other ROS/Med Hx Other: Eliquis 04/04/25 Hgb [...] been obtained with: patient. Plan discussed with POWER BALLAST 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. CODE STATUS: Code Status (Patient has [...] documented as of this encounter Care Teams Account Services Specialist Relationship Specialty Start Date End Date Provider, No Known [facility] [place] [address] PCP - General 05/09/23 documented as of this encounter
--- OUTSIDE RECORDS SUMMARY | 2025-04-08 14:45 | XMS_ITS | Encounter Summary ---
[facility] Address [address] [place] [address] Care Team Providers Care Market Investigator Name Role Phone Provider, No Known Primary Care Provider Unavail able Reason for Visit * Reason Comments Leg Swelling * Auth/Cert Specialty Diagnoses / Procedures Referred By Contac t Referred To Contact Diagnoses Right BKA infection Referral ID Status Reason Start Date Expiration Date Visits Re quested Visits Authorized [id number] 1 1 Encounter Details Date Type Department Care Team (Late st Contact Info) Description 04/08/2025 2:45 PM EDT - 04/08/2025 4:04 PM EDT Surgery [facility] OR [address] [place] [address] Sushil Dean Jr., MD [address] [place] [address] [address] [id number] LEG DEBRIDEMENT AND IRRIGATION Social History Tobacco Use Types Packs/Day Years Used Date Smoking Tobacco: Never Smokeless Tobacco: Never Tobacco Cessation:Counseling Given: Not Answered Alcohol Use Standard Drinks/Week Comments Not Currently 0 (1 standard drink = 0.6 oz pur e alcohol) [facility] Utilities Answer Date Recorded In the past 12 months has [employer] electric, gas, oil, or water company threatened [...] or training? Not on file Preferred Language Spanish 04/07/2025 Sex and Gender Information Value Date [...] 2:25 PM EDT Cherri Grimm RN * [place] Suicide Severity Rating Scale (Screener/Recent Self-Report) Question [...] original note were not included. [facility] DISCHARGE SUMMARY Patient Name: Won [...] Date/Time Wound Culture - Swab, Leg, Right [[id number]] (Abnormal) (Susceptibility) Collected: 04/07/252106 Lab Status: Final [...] Units Date/Time FL C Arm During Surgery [[id number]] Resulted: 04/07/252137 Updated: 04/07/252137 Narrative: This procedure was auto-finalized with no dictation required. MRI Tibia Fibula Right With & Without Contrast [[id number]] Collected: 04/07/25 0938 Updated: 04/07/25 1001 Narrative: [...] Buenrostro 04/07/2025 9:58 AM EDT Workstation ID: [id number] MRI Tibia Fibula Right With & Without Contrast [[id number]] Collected: 04/04/252256 Updated: 04/04/252302 Narrative: MRI TIBIA [...] represent a small area of phlegmonous change ([id number] image 10) measuring approximately 1.6 cm which [...] MD 04/04/2025 11:00 PM EDT Workstation ID: [id number] Pending Labs Order Current Status Fungus Culture [...] Male) Date of 1980 Social Security Number [id number] [place] [address] [place] [address] Gnosticism Unknown Marital Status Unknown Admission Date [...] Group [employer] MEDICAID OR HU[employer]NA MEDICAID OR [id number] Payor Plan Address Payor Plan Phone Number Payor Plan Fax Number Effective Dates [employer] [address] [address] 08/10/2023 - None Entered [facility] [address] Subscriber Name Subscriber Date Member ID WON DENNIS 1980 [id number] Emergency Contacts Psychologists (Rel.) Home Phone Work Phone Mobile Phone Avril Dennis (Spouse) -- -- [phone] Robert Hackett (Relative) -- -- [phone] [facility] [address]G [address] [facility] [address] Patient: ROOM: [facility] Won Dennis [address] [place] [address] : 1980 SSN: [id number] Sex: M PCP: Provider, No Known Emergency Contact Information Name Relation Home Work Mobile Avril Dennis Spouse [phone] Other Contacts Name Relation Home Work Mobile Robert Hackett Relative [phone] INSURANCE PAYOR PLAN GROUP # SUBSCRIBER ID Primary: Secondary: MEDICARE [place] [id number] Admitting Diagnosis: Right BKA infection [T87.43] Order Date: Apr 09, 2025 Case Management Coat Tailor Consult (Order ID: [id number]) Diagnosis: Priority: Routine Expected Date: Expiration Date: [...] INFECTIOUS DISEASE Progress Note Won Dennis 1980 [id number] Date of Consult: 04/10/2025 Admission Date: 04/04/2025 [...] which prompted him to seek treatment at [facility]. He is known to Dr. Dean. He [...] Jr., MD, 20 mg at 04/09/25906 heparin 12237 units/250 mL (100 units/mL) in 0.45 % [...] Units Date/Time FL C Arm During Surgery [[id number]] Resulted: 04/07/252137 Updated: 04/07/252137 Narrative: This procedure was auto-finalized with no dictation required. MRI Tibia Fibula Right With & Without Contrast [[id number]] Collected: 04/07/2538 Updated: 04/07/25 1001 Narrative: MRI [...] Buenrostro 04/07/2025 9:58 AM EDT Workstation ID: [id number] Impression: Recurrent Right BKA stump abscess/cellulitis- this [...] 04/10/251323 Creation Time: 04/10/251323 Signed [facility] Services PROGRESS NOTE Patient Name: [...] Date/Time Wound Culture - Swab, Leg, Right [[id number]] (Abnormal) (Susceptibility) Collected: 04/07/252106 Lab Status: Final [...] Row Name 04/06/25 1143 Sit-Stand Transfer Sit-Stand [place] (Transfers) modified independence - Comment, (Sit-Stand Transfer) Pt stood from recliner. Not holding onto walker, pt able to pull his pants up while balancing on his one leg. -LM Row Name 04/06/25 1143 Gait/Stairs (Locomotion) [place] Level (Gait) modified independence - Distance in [...] Motion bilateral lower extremity ROM WFL -LM [facility] Name 04/06/25 1145 Strength Comprehensive (MMT) General Manual Muscle Testing (MMT) Assessment no strength deficits identified BLEs -LM [facility] Name 04/06/25 1145 Balance Balance Assessment [...] home at d/c. PT signing off. -LM [facility] Name 04/06/25 1146 Therapy Assessment/Plan (PT) Criteria for Skilled Interventions Met (PT) no;no problems identified which require skilled intervention -LM Therapy Frequency (PT) evaluation only -LM Predicted Duration of Therapy Intervention (PT) Eval Only -LM [facility] Name 04/06/25 1146 Vital Signs Pretreatment Heart Rate (beats/min) 86 -LM Posttreatment Heart Rate (beats/min) 96 -LM Pre SpO2 (%) 95 -LM O2 Delivery Pre Treatment room air -LM Post SpO2 (%) 96 -LM O2 Delivery Post Treatment room air -LM Pre Patient Position Sitting -LM Post Patient Position Sitting -LM [facility] Name 04/06/25 1146 Positioning and Restraints [...] Nurse Physical Therapy Education Title: PT OT ASSEMBLY INSPECTOR HELPER Therapies (Done) Topic: Physical Therapy (Done) Point: [...] Description Service Date Service Provider Modifiers Qty [id number] PT EVAL LOW COMPLEXITY 3 04/06/2025 Susan [...] mg Daily 04/05/2025 -- Route: Oral heparin 70388 units/250 mL (100 units/mL) in 0.45 % [...] Dean MD April 21 vs April 22 [facility] [address], [address] [facility], [address] Please schedule at [phone] VONDA Garcia 04/11/25 08:32 EDT Cosigned by Sushil Dean Jr., MD at 04/19/2025 10:33 AM EDT Associated attestation - Sushil Dean Jr., MD - 04/19/2025 10:33 AM EDT I have reviewed this documentation and agree. * Rosario Hill APRN - 04/10/2025 1:24 PM EDT Images from the original note were not included. [facility] PROGRESS NOTE Patient Name: Won [...] Date/Time Wound Culture - Swab, Leg, Right [[id number]] (Abnormal) (Susceptibility) Collected: 04/07/252106 Lab Status: Final [...] mg Daily 04/05/2025 -- Route: Oral heparin 45895 units/250 mL (100 units/mL) in 0.45 % [...] Dean MD April 21 vs April 22 [facility] [address] [facility], [address] [facility], [address] Please schedule at [phone] VONDA Garcia 04/10/25 09:01 EDT Cosigned by Sushil Dean Jr., MD at 04/19/2025 10:33 AM EDT Associated attestation - Sushil Dean Jr., MD - 04/19/2025 10:33 AM EDT I have reviewed this documentation and agree. * Carlton Mead MD - 04/10/2025 7:38 AM EDT Images from the original note were not included. INFECTIOUS DISEASE Progress Note Won Dennis 1980 [id number] Date of Consult: 04/10/2025 Admission Date: 04/04/2025 [...] which prompted him to seek treatment at [facility]. He is known to Dr. eDan. He denies recent antibiotics. He has an [...] IRRIGATION; Surgeon: Sushil Dean Jr., MD; [facility]; Service: Orthopedics; Laterality: Right; PLACEMENT OF WOUND VAC Right 04/07/2025 Procedure: WOUND VACUUM ASSISTED CLOSURE; Surgeon: Sushil Dean Jr., MD; Location: [facility]; Service: Orthopedics; Laterality: Right; WOUND CLOSURE [...] Jr., MD, 20 mg at 04/09/25906 heparin 90026 units/250 mL (100 units/mL) in 0.45 % [...] Units Date/Time FL C Arm During Surgery [[id number]] Resulted: 04/07/252137 Updated: 04/07/252137 Narrative: This procedure was auto-finalized with no dictation required. MRI Tibia Fibula Right With & Without Contrast [[id number]] Collected: 04/07/25937 Updated: 04/07/25 100 Narrative: MRI [...] Buenrostro 04/07/2025 9:58 AM EDT Workstation ID: [id number] Impression: Recurrent Right BKA stump abscess/cellulitis- this [...] original note were not included. [facility] PROGRESS NOTE Patient Name: Won [...] Date/Time Wound Culture - Swab, Leg, Right [[id number]] (Abnormal) Collected: 04/07/252106 Lab Status: Preliminary result [...] mg Daily 04/05/2025 -- Route: Oral heparin 47709 units/250 mL (100 units/mL) in 0.45 % [...] in 2 weeks for incision check, radiographs [facility] [address], [address] [facility], [address] Please schedule at [phone] VONDA Garcia 04/09/25 09:18 EDT Cosigned by Sushil Dean Jr., MD at 04/19/2025 10:33 AM EDT Associated attestation - Sushil Dean Jr., MD - 04/19/2025 10:33 AM EDT I have reviewed this documentation and agree. * Carlton Mead MD - 04/09/2025 8:25 AM EDT Images from the original note were not included. INFECTIOUS DISEASE Progress Note Won Dennis 1980 [id number] Date of Consult: 04/09/2025 Admission Date: 04/04/2025 [...] which prompted him to seek treatment at [facility]. He is known to Dr. Dean. He [...] Jr., MD; Location: [facility]; Service: Orthopedics; Laterality: [...] MD, 20 mg at 04/08/25 0800 heparin 64698 units/250 mL (100 units/mL) in 0.45 % [...] Units Date/Time FL C Arm During Surgery [[id number]] Resulted: 04/07/252137 Updated: 04/07/252137 Narrative: This procedure was auto-finalized with no dictation required. MRI Tibia Fibula Right With & Without Contrast [[id number]] Collected: 04/07/25 0938 Updated: 04/07/25 1001 Narrative: [...] Chitra 04/07/2025 9:58 AM EDT Workstation ID: [id number] Impression: Recurrent Right BKA stump abscess/cellulitis- this [...] original note were not included. [facility] PROGRESS NOTE Patient Name: Won [...] Buenrostro 04/07/2025 9:58 AM EDT Workstation ID: [id number] I have personally reviewed the therapy plans: [...] mg Daily 04/05/2025 -- Route: Oral heparin 11966 units/250 mL (100 units/mL) in 0.45 % [...] INFECTIOUS DISEASE Progress Note Won Dennis 1980 [id number] Date of Consult: 04/08/2025 Admission Date: 04/04/2025 [...] which prompted him to seek treatment at [facility]. He is known to Dr. Dean. He [...] Jr., MD; Location: [facility]; Service: Orthopedics; Laterality: Right; PLACEMENT OF WOUND VAC Right 04/07/2025 Procedure: WOUND VACUUM ASSISTED CLOSURE; Surgeon: Sushil Dean Jr., MD; Location: [facility]; Service: Orthopedics; Laterality: [...] Oral, Q6H PRN, 500 mg at 04/06/25 7664 OR acetaminophen (TYLENOL) 160 MG/5ML oral solution [...] Jr., MD, 20 mg at 04/07/25950 heparin 17297 units/250 mL (100 units/mL) in 0.45 % [...] Units Date/Time FL C Arm During Surgery [[id number]] Resulted: 04/07/252137 Updated: 04/07/252137 Narrative: This procedure was auto-finalized with no dictation required. 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 (Treated by ID in [place] Dr. Harris). Dr. Torers treated him with very prolonged intravenousantibiotic therapy [...] original note were not included. [facility] PROGRESS NOTE Patient Name: Won [...] Buenrostro 04/07/2025 9:58 AM EDT Workstation ID: [id number] I have personally reviewed the therapy plans: [...] INFECTIOUS DISEASE Progress Note Won Dennis 1980 [id number] Date of Consult: 04/07/2025 Admission Date: 04/04/2025 [...] which prompted him to seek treatment at [facility]. He is known to Dr. Dean. He [...] MD, 20 mg at 04/06/25 0900 heparin 36123 units/250 mL (100 units/mL) in 0.45 % [...] Driven Protocol, , Not Applicable, PRN, Leonora Sehpherd MD Potassium Replacement - Follow Nurse / [...] With & Without Contrast - In process [[id number]] Resulted: 04/07/25828 Updated: 04/07/25828 This result has not been signed. Information might be incomplete. 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 (Treated by ID in [place] Dr. Harris). Dr. Torres treated him with [...] mg Daily 04/05/2025 -- Route: Oral heparin 01912 units/250 mL (100 units/mL) in 0.45 % [...] original note were not included. [facility] PROGRESS NOTE Patient Name: Won [...] MD 04/04/2025 11:00 PM EDT Workstation ID: [id number] I have personally reviewed the therapy plans: [...] With: Patient Jason Álvarez DO 04/06/25 * Susihl Dean Jr., MD - 04/06/2025 12:33 PM [...] mg Daily 04/05/2025 -- Route: Oral heparin 94229 units/250 mL (100 units/mL) in 0.45 % [...] INFECTIOUS DISEASE follow up. Won Dennis 1980 [id number] Date of Consult: 04/06/2025 Admission Date: 04/04/2025 [...] which prompted him to seek treatment at [facility]. He is known to Dr. Dean. He [...] 100 mL MBP, 2,000 mg, Intravenous, Q24H, Carlotn Mead MD, Last Rate: 200 mL/hr at [...] MD, 20 mg at 04/06/25 0900 heparin 08424 units/250 mL (100 units/mL) in 0.45 % NaCl infusion, 18 Units/kg/hr, Intravenous, Titrated, Cherri Beatty [facility], Last Rate: 24.1 mL/hr at 04/06/25 1420, 18 Units/kg/hr at 04/06/25 1420 hydroCHLOROthiazide tablet 12.5 mg, 12.5 mg, Oral, Daily, Leonora Shephedr MD, 12.5 mg at 859 HYDROmorphone (DILAUDID) [...] Tibia Fibula Right With & Without Contrast [[id number]] Collected: 04/04/252256 Updated: 04/04/252302 Narrative: MRI TIBIA [...] represent a small area of phlegmonous change (enywwi69 image 10) measuring approximately 1.6 cm which [...] MD 04/04/2025 11:00 PM EDT Workstation ID: [id number] Impression: Right BKA stump cellulitis- s/p BKA with multiple surgical 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 (Treated by ID in [place] Dr. Harris). Dr. Torres treated him with [...] original note were not included. [facility] PROGRESS NOTE Patient Name: Won [...] MD 04/04/2025 11:00 PM EDT Workstation ID: [id number] I have personally reviewed the therapy plans: [...] original note were not included. 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 Spoke with [facility]. Appreciate pharmacy's assistance with heparin drip [...] EDTAssociated Order(s): IP CONSULT TO ORTHOPEDIC SURGERY [facility] [address] [address] Orthopedic Consult Patient: Won Dennis Date of [...] was evaluated in the emergency department in [place], was discharged with instructions for follow-up. He [...] mouth Daily. 04/03/2025 Morning Lactobacillus-Inulin ([facility]) capsule Take 200 mg by mouth [...] MD 04/04/2025 11:00 PM EDT Workstation ID: [id number] Assessment: Right BKA infection 44-year-old male with [...] DISEASE CONSULT/INITIAL HOSPITAL VISIT Won Dennis 1980 [id number] Date of Consult: 04/05/2025 Admission Date: 04/04/2025 [...] which prompted him to seek treatment at [facility]. He is known to Dr. Dean. He [...] Leonora Shepherd MD, 40 mg at 04/04/25 6689 sennosides-docusate (PERICOLACE) 8.6-50 MG per tablet 2 [...] MD, 20 mg at 04/05/25 09 heparin 77645 units/250 mL (100 units/mL) in 0.45 % [...] Leonora Shepherd MD, 10 mg at 04/04/25 6908 Pharmacy to Dose Heparin, , Not Applicable, [...] Tibia Fibula Right With & Without Contrast [[id number]] Collected: 04/04/252256 Updated: 04/04/252302 Narrative: MRI TIBIA [...] represent a small area of phlegmonous change (iwvsgh82 image 10) measuring approximately 1.6 cm which [...] MD 04/04/2025 11:00 PM EDT Workstation ID: [id number] Impression: Right BKA stump cellulitis- s/p BKA with multiple surgical interventions with Known MRSA 05/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 (Treated by ID in [place] Dr. Harris). Dr. Torres treated him with [...] Jr., MD - 04/08/2025 3:51 PM EDT [facility] OPERATIVE REPORT PATIENT NAME: Won Dennis DATE OF : 1980 PREOP DIAGNOSIS: Right Right below-knee amputation infection POSTOP DIAGNOSIS: Same. PROCEDURE: Right Right 82713: Secondary closure below-knee amputation SURGEON: Sushil Dean MD OPERATIVE TEAM: Skein Bander: Susi Grullon RN Scrub Person: Mary Paredes Scrub Person Extra: Hortencia Toribio Other: Katt Gotti RN; Charis Neville RN ANESTHETIST: Anesthesiologist: Ulises Hoffman MD AIRCRAFT CHARTER DISPATCHER: Stan Casillas CRNA Student Nurse Corporate Receptionist: Karol Albert SRNA ANESTHESIA: Choice ESTIMATED BLOOD [...] CULTURE (Canceled) Sushil Dean Jr., MD 04/08/25 6927 Description: RIGHT LEG DEEP WOUND FOR CULTURE [...] Jr., MD - 04/07/2025 9:03 PM EDT [facility], [place] [address] OPERATIVE REPORT PATIENT NAME: Won Dennis DATE OF : 1980 PREOP DIAGNOSIS: Right Right below knee amputation stump infection POSTOP DIAGNOSIS: Same. PROCEDURE: Right Right 90700: Incision and drainage of surgical site infection 90130: Debridement of skin, subcutaneous tissue, muscle 05713: Wound vacuum-assisted closure SURGEON: Sushil Dean MD OPERATIVE TEAM: Skein Bander: Anum Sanchez RN Scrub Person: Hortencia Toribio; Gerald Ivey FEEDER CATCHER: Anesthesiologist: Luic Alonso DO ANESTHESIA: General ESTIMATED BLOOD LOSS: [...] ago swellling of the area. seen at [facility] yesterday for CT and US, here for [...] mL MBP, 2,000 mg, Intravenous, Once, Mario Crowely DO Morphine sulfate (PF) injection 4 mg, [...] this chart in the absence of a head of business development. No orders to display RADIOLOGY: [x] Radiologist's [...] has spoke with Dena at [facility] today multiple times to get setup due [...] with KELLEE and given themhis Medicare number [id number], she sent it to Admission. DEBRA spoke with Kerri, with [facility], and explained that he had Medicare A and B. However, it will not cover home infusion. It will be $64.00 a day out of packet. Patients can go to the Infusion center at [facility], and it will cover the [...] to [facility] at [phone]. CM will follow up with them tomorrow [...] PM EDT Continued Stay Note [facility] Patient Name: Won Dennis Today's Date: 04/09/2025 Admit Date: 04/04/2025 Plan: Home Discharge Plan Row Name 04/09/25 1311 Plan Plan Home Patient/Family in Agreement with Plan yes Plan Comments CM spoke with patient at bedside today. Wheelchair from [facility] is at bedside. Patient getting PICC line [...] not included. Discharge Planning Assessment [facility] Patient Name: Won Dennis Today's Date: 04/07/2025 [...] Patient/Family Anticipated Services at [facility] case managersales and production manager Anticipated family or friend will provide Discharge Needs Assessment Equipment Currently Used at Home glucometer;shower chair;pulse ox;bp cuff;prosthesis;crutches Equipment Needed After Discharge none Discharge Plan Row Name 04/07/25 1144 Plan Plan Home Patient/Family in Agreement with Plan yes Plan Comments CM spoke with patient at bedside today. Patient lives with and his 5 kids in [facility]. 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 He has walker, cane, shower chair, and crutches. He requested a wheelchair for home. CM [facility]. He is not current with home health services. PCP is Dr. Jordan. [place]. Patient discharge plan is home with priavte transport. CM will follow for any discharge needs. Final Discharge Disposition Code 01 - home or self-care Continued Care and Services - Admitted Since 04/04/2025 No active coordination exists. Demographic Summary Row Name 04/07/25 1143 General Information Arrived From hospital Preferred Language Spanish Functional Status Row Name 04/07/25 1143 Functional [...] Auto Differential (04/11/2025 3:40 AM EDT) [facility] WBC 7.87 3.40 - 10.80 10*3/mm3 04/11/2025 4:02 AM EDT [facility] RBC 4.70 4.14 - 5.80 10*6/mm3 04/11/2025 4:02 AM [facility] Hemoglobin 12.8(L) 13.0 - 17.7 g/dL 04/11/2025 4:02 AM [facility] Hematocrit 40.5 37.5 - 51.0 % 04/11/2025 4:02 AM [facility] MCV 86.2 79.0 - 97.0 fL 04/11/2025 4:02 AM [facility] MCH 27.2 26.6 - 33.0 pg 04/11/2025 4:02 AM [facility] MCHC 31.6 31.5 - 35.7 g/dL 04/11/2025 4:02 AM [facility] RDW 12.9 12.3 - 15.4 % 04/11/2025 4:02 AM [facility] RDW-SD 40.5 37.0 - 54.0 fl 04/11/2025 4:02 AM [facility] MPV 9.2 6.0 - 12.0 fL 04/11/2025 4:02 AM [facility] Platelets 267 140 - 450 10*3/mm3 04/11/2025 4:02 AM [facility] Neutrophil % 59.5 42.7 - 76.0 % 04/11/2025 4:02 AM [facility] Lymphocyte % 26.3 19.6 - 45.3 % 04/11/2025 4:02 AM [facility] Monocyte % 9.3 5.0 - 12.0 % 04/11/2025 4:02 AM [facility] Eosinophil % 4.1 0.3 - 6.2 % 04/11/2025 4:02 AM [facility] Basophil % 0.4 0.0 - 1.5 % 04/11[facility]25 [facility] Immature Grans % 0.4 0.0 - 0.5 % 04/11/2025 4:02 AM EDT [facility] Neutrophils, Absolute 4.69 [...] Fi nal Result [facility]
[address] [place] [address], * (ABNORMAL) Comprehensive Metabolic Panel (04/11/2025 3:40 AM EDT) Glucose 108(H) 65 - 99 mg/dL 04/11/2025 4:19 AM EDT [facility] BUN 12.5 6.0 - 20.0 mg/dL 04/11/2025 4:19 AM EDT [facility] Creatinine 0.68(L) 0.76 - 1.27 mg/dL 04/11/2025 4:19 AM [facility] Sodium 140 136 - 145 mmol/L 04/11/2025 4:19 AM [facility] Potassium 3.8 3.5 - 5.2 mmol/L 04/11/2025 4:19 AM [facility] Chloride 105 98 - 107 mmol/L 04/11/2025 4:19 AM [facility] CO2 28.2 22.0 - 29.0 mmol/L 04/11/2025 4:19 AM [facility] Calcium 8.2(L) 8.6 - 10.5 mg/dL 04/11/2025 4:19 AM [facility] Total Protein 6.1 6.0 - 8.5 g/dL 04/11/2025 4:19 AM [facility] Albumin 3.1(L) 3.5 - 5.2 g/dL 04/11/2025 4:19 AM [facility] ALT (SGPT) 52(H) 1 - 41 U/L 04/11/2025 4:19 AM [facility] AST (SGOT) 40 1 - 40 U/L 04/11/2025 4:19 AM [facility] Alkaline Phosphatase 99 39 - 117 U/L 04/11/2025 4:19 AM [facility] Total Bilirubin 0.2 0.0 - 1.2 mg/dL 04/11/2025 4:19 AM [facility] Globulin 3.0 gm/dL 04/11/2025 4:19 AM [facility] Comment:Calculated Result A/G Ratio 1.0 g/dL 04/11/2025 4:19 AM [facility] BUN/Creatinine Ratio 18.4 7.0 - 25.0 04/11/2025 4:19 AM [facility] Anion Gap 6.8 5.0 - 15.0 mmol/L 04/11/2025 4:19 AM [facility] eGFR 117.5 >60.0 [...] Hill APRN LAB BLOOD ORDERABLES Final Result [facility]
[address] [place] [address], * (ABNORMAL) CBC Auto Differential (04/10/2025 3:46 [...] 26.6 - 33.0 pg [facility] MCHC 32.2 31.5 - 35.7 g/dL 04/10/2025 3:56 AM EDT [facility] RDW 12.9 12.3 - 15.4 % 04/10/2025 3[facility] RDW-SD 40.5 37.0 - 54.0 fl 04/10/2025 3:56 AM EDT [facility] MPV 9.5 6.0 - 12.0 fL 04/10/2025 3:56 AM EDT [facility] Platelets 227 140 - 450 10*3/mm3 04/10/2025 3:56 AM [facility] Neutrophil % 59.1 42.7 - 76.0 % 04/10/2025 3:56 AM [facility] Lymphocyte % 29.0 19.6 - 45.3 % 04/10/2025 3:[facility] Monocyte % 8.1 5.0 - 12.0 % 04/10/2025 3:56 AM [facility] Eosinophil % 3.2 0.3 - 6.2 % 04/10/2025 3:56 AM [facility] Basophil % 0.4 0.0 - 1.5 % 04/10/2025 3:56 AM [facility] Immature Grans % 0.2 0.0 - 0.5 % 04/10/2025 3:56 [facility] Neutrophils, Absolute 5.67 1.70 - 7.00 10*3/mm3 04/10/2025 3:56 [facility] Lymphocytes, Absolute 2.78 0.70 - 3.10 10*3/mm3 04/10/2025 3:56 [facility] Monocytes, Absolute 0.78 0.10 - 0.90 10*3/mm3 04/10/2025 3:56 [facility] Eosinophils, Absolute 0.31 0.00 - 0.40 10*3/mm3 04/10/2025 3:56 AM EDT [facility] Basophils, Absolute 0.04 [...] Final Resul t [facility]
[address] [place] [address], * (ABNORMAL) Basic Metabolic Panel (04/10/2025 3:46 [...] - 10.5 mg/dL 04/10/2025 4:20 AM EDT [facility] BUN/Creatinine Ratio 20.6 7.0 [...] Final Resul t [facility]
[address] [place] [address], * Heparin Anti-Xa (04/10/2025 3:46 AM EDT) Heparin Anti-Xa (UFH) 0.35 0.30 - 0.70 IU/ml 04/10/2025 4:23 AM EDT [facility] Blood Venipuncture / Unknown 04/10/2025 3:46 AM EDT 04/10/2025 3:53 AM EDT Larisa Hamilton [facility] LAB BLOOD ORDERABLES Final R esult [facility]
[address] [place] [address], * Heparin Anti-Xa (04/09/2025 10:05 AM EDT) Pathologist [facility] Heparin Anti-Xa (UFH) 0.36 0.30 - 0.70 IU/ml 04/09/2025 11:12 AM EDT [facility] Blood Venipuncture / Unknown 04/09/2025 10:05 AM EDT 04/09/2025 10:47 AM EDT Larisa Hamilton [facility] LAB BLOOD ORDERABLES Final R esult [facility]
[address] [place] [address], * (ABNORMAL) CBC Auto Differential (04/09/2025 4:18 [...] 12.3 - 15.4 % 04/09/2025 4:50 AM [facility] RDW-SD 39.9 37.0 - 54.0 fl 04/09/2025 4:50 AM [facility] MPV 10.0 6.0 - 12.0 fL 04/09/2025 4:50 AM [facility] Platelets 211 140 - 450 10*3/mm3 04/09/2025 4:50 AM [facility] Neutrophil % 74.8 42.7 - 76.0 % 04/09/2025 4:50 AM [facility] Lymphocyte % 15.4(L) 19.6 - 45.3 % 04/09/2025 4:50 AM [facility] Monocyte % 8.5 5.0 - 12.0 % 04/09/2025 4:50 AM [facility] Eosinophil % 0.6 0.3 - 6.2 % 04/09/2025 4:50 AM [facility] Basophil % 0.4 0.0 - 1.5 % 04/09/2025 4:50 AM [facility] Immature Grans % 0.3 0.0 - 0.5 % 04/09/2025 4:50 AM [facility] Neutrophils, Absolute 8.23(H) 1.70 - 7.00 10*3/mm3 04/09/2025 4:50 AM [facility] Lymphocytes, Absolute 1.69 0.70 - 3.10 10*3/mm3 04/09/2025 4:50 AM [facility] Monocytes, Absolute 0.94(H) 0.10 - 0.90 10*3/mm3 04/09/2025 4:50 AM [facility] Eosinophils, Absolute 0.07 0.00 - 0.40 10*3/mm3 04/09/2025 4:[facility] Basophils, Absolute 0.04 0.00 - 0.20 10*3/mm3 04/09/2025 4:50 AM EDT [facility] Immature Grans, Absolute 0.03 0.00 - 0.05 10*3/mm3 04/09/2025 4:50 AM EDT [facility] nRBC 0.0 0.0 - 0.2 /100 WBC 04/09/2025 4:50 AM EDT [facility] Blood Venipuncture / Unknown 04/09/2025 4:18 AM EDT 04/09/2025 4:31 AM EDT Sushil Dean Jr., MD LAB BLOOD ORDERABLES Fi nal Result Performing Organization Address City/[facility]/ZIP Co de Phone Number [facility]
[address] [place] [address], * Heparin Anti-Xa (04/09/2025 4:18 AM EDT) Heparin Anti-Xa (UFH) 0.41 0.30 - 0.70 IU/ml 04/09/2025 4:53 AM EDT [facility] Blood Venipuncture / Unknown 04/09/2025 4:18 AM EDT 04/09/2025 4:31 AM EDT Una LundbergD LAB BLOOD ORDERABLES Final R esult [facility]
[address] [place] [address], * (ABNORMAL) Basic Metabolic Panel (04/09/2025 4:18 [...] 4:18 AM EDT 04/09/2025 4:29 AM EDT [facility] - 04/09/2025 5:33 AM EDT [...] nal Result [facility]
[address] [place] [address], * Wound Culture - Swab, Leg, Right (04/08/2025 3:40 PM EDT) Wound Culture No growth at 3 days ALIZA 04/11/2025 10:40 AM EDT [facility] Gram Stain Few (2+) WBCs seen 04/11/2025 10:40 AM EDT [facility] Gram Stain No organisms seen 04/11/2025 10:40 AM EDT [facility] Swab Structure of right lower limb / Unknown 04/08/2025 3:40 PM EDT 04/08/2025 8:05 PM EDT us Sushil Dena Jr., MD MICROBIOLOGY - GENERAL ORDERABLES Final Result Performing Organization Address City/[facility]/ZIP Co de Phone Number [facility]
[address] [place] [address], [facility]
[address] [place] [address], * Anaerobic Culture - Swab, Leg, Right (04/08/2025 3:40 PM EDT) Anaerobic Culture No anaerobes isolated at 5 days ALIZA 04/13/2025 7:24 AM EDT [facility] Swab Structure of right lower limb / Unknown 04/08/2025 3:40 PM EDT 04/08/2025 8:05 PM EDT us Sushil Dean Jr., MD MICROBIOLOGY - GENERAL ORDERABLES Final Result Performing Organization Address City/[facility]/ZIP Co de Phone Number [facility]
[address] [place] [address], * Scan Slide (04/08/2025 8:41 AM EDT) [...] Final R esult [facility]
[address] [place] [address], * (ABNORMAL) CBC Auto Differential (04/08/2025 8:41 [...] 37.0 - 54.0 fl 04/08/2025 11:02 AM [facility] MPV 11.0 6.0 - 12.0 fL 04/08/2025 11:02 AM [facility] Platelets 118(L) 140 - 450 10*3/mm3 04/08/2025 11:02 AM [facility] Neutrophil % 85.1(H) 42.7 - 76.0 % 04/08/2025 11:02 AM [facility] Lymphocyte % 9.3(L) 19.6 - 45.3 % 04/08/2025 11:02 AM [facility] Monocyte % 4.6(L) 5.0 - 12.0 % 04/08/2025 11:02 AM [facility] Eosinophil % 0.3 0.3 - 6.2 % 04/08/2025 11:02 AM [facility] Basophil % 0.2 0.0 - 1.5 % 04/08/2025 11:02 AM [facility] Immature Grans % 0.5 0.0 - 0.5 % 04/08/2025 11:02 AM [facility] Neutrophils, Absolute 8.57(H) 1.70 - 7.00 10*3/mm3 04/08/2025 11:02 AM [facility] Lymphocytes, Absolute 0.94 0.70 - 3.10 10*3/mm3 04/08/2025 11:02 AM [facility] Monocytes, Absolute 0.46 0.10 - 0.90 10*3/mm3 04/08/2025 11:02 AM [facility] Eosinophils, Absolute 0.03 0.00 - 0.40 10*3/mm3 04/08/2025 11:02 AM [facility] Basophils, Absolute 0.02 0.00 - 0.20 10*3/mm3 04/08/2025 11:02 AM [facility] Immature Grans, Absolute 0.05 0.00 - 0.05 10*3/mm3 04/08/2025 11:02 AM EDT [facility] nRBC 0.0 0.0 - 0.2 /100 WBC 04/08/2025 11:02 AM EDT [facility] Blood Venipuncture / Unknown 04/08/2025 8:41 AM EDT 04/08/2025 9:10 AM EDT Una Perla PharmD LAB BLOOD ORDERABLES Final R esult [facility]
[address] [place] [address], * (ABNORMAL) Basic Metabolic Panel (04/08/2025 8:41 [...] ORDERABLES Fi nal Result Performing Organization Address City/[facility]/ZIP Co de Phone Number [facility]
[address] [place] [address], * Heparin Anti-Xa (04/08/2025 8:41 AM EDT) Heparin Anti-Xa (UFH) 0.33 0.30 - 0.70 IU/ml 04/08/2025 9:40 AM EDT [facility] Blood Venipuncture / Unknown 04/08/2025 8:41 AM EDT 04/08/2025 9:10 AM EDT Sushil Dean Jr., MD LAB BLOOD ORDERABLES Fi nal Result Performing Organization Address City/[facility]/ZIP Co de Phone Number [facility]
[address] [place] [address], * FL C Arm During Surgery (04/07/2025 9:32 PM EDT) Narrative SYSTEMGENERATED, DOCUMENTATION - 04/07/2025 9:38 PM EDT This procedure was auto-finalized with no dictation required. us Sushil Dean Jr., MD IMG FLUOROSCOPY ORDERAB LES Final Result * Wound Culture - Swab, Leg, Right (04/07/2025 9:14 PM EDT) Wound Culture No growth at 3 days ALIZA 04/11/2025 10:40 AM EDT [facility] Gram Stain Occasional WBCs seen 04/11/2025 10:40 AM EDT [facility] Gram Stain No organisms seen 04/11/2025 10:40 AM EDT [facility] Swab Structure of right lower limb / Unknown Collection / Unknown 04/07/2025 9:14 PM EDT 04/08/2025 4:36 AM EDT us Sushil Dean Jr., MD MICROBIOLOGY - GENERAL ORDERABLES Final Result Performing Organization Address City/[facility]/ZIP Co de Phone Number [facility]
[address] [place] [address], [place] [phone] [facility]
[address] [place] [address], [place] [phone] * Anaerobic Culture - Swab, Leg, Right (04/07/2025 9:14 PM EDT) Anaerobic Culture No anaerobes isolated at 5 days ALIZA 04/13/2025 7:21 AM EDT [facility] Swab Structure of right lower limb / Unknown Collection / Unknown 04/07/2025 9:14 PM EDT 04/08/2025 4:36 AM EDT us Sushil Dean Jr., MD MICROBIOLOGY - GENERAL ORDERABLES Final Result [facility]
[address] [place] [address], * Anaerobic Culture - Tissue, Leg (04/07/2025 9:13 PM EDT) Anaerobic Culture No anaerobes isolated at 5 days ALIZA 04/13/2025 7:21 AM EDT [facility] Tissue Lower limb structure / Unknown Collection / Unknown 04/07/2025 9:13 PM EDT 04/08/2025 4:54 AM EDT Jason Álvarez DO MICROBIOLOGY - GENERAL ORDERABLE S Final Result Performing Organization Address [facility]/State/ZIP Co de Phone Number [facility]
[address] [place] [address], * Tissue / Bone Culture - Tissue, Leg, Right (04/07/2025 9:13 PM EDT) Tissue Culture No growth at 3 days ALIZA 04/11/2025 10:36 AM EDT [facility] Gram Stain Rare (1+) WBCs seen 04/11/2025 10:36 AM EDT [facility] Gram Stain No organisms seen 04/11/2025 10:36 AM EDT [facility] Tissue Structure of right lower limb / Unknown 04/07/2025 9:13 PM EDT 04/08/2025 4:54 AM EDT Sushil Dean Jr., MD MICROBIOLOGY - GENERAL ORDERABLES Final Result [facility]
[address] [place] [address], [facility]
[address] [place] [address], [place] [phone] * (ABNORMAL) Wound Culture - Swab, Leg, Right (04/07/2025 9:07 PM EDT) Wound Culture Light growth (2+) Staphylococcus aureus, MRSA(A) ALIZA 04/10/2025 10:38 AM EDT [facility] Comment: Methicillin resistant [...] MD MICROBIOLOGY - GENERAL ORDERABLES Final Result [facility]
[address] [place] [address], [place] [phone] [facility]
[address] [place] [address], [place] [phone] * Anaerobic Culture - Swab, Leg, Right (04/07/2025 9:07 PM EDT) Anaerobic Culture No anaerobes isolated at 5 days ALIZA 04/13/2025 7:21 AM EDT [facility] Swab Structure of right lower limb / Unknown Collection / Unknown 04/07/2025 9:07 PM EDT 04/08/2025 4:36 AM EDT us Sushil Dean Jr., MD MICROBIOLOGY - GENERAL ORDERABLES Final Result [facility]
[address] [place] [address], * Heparin Anti-Xa (04/07/2025 9:10 AM EDT) Pathologist [facility] Heparin Anti-Xa (UFH) 0.30 0.30 - 0.70 IU/ml 04/07/2025 10:12 AM EDT [facility] Blood Venipuncture / Unknown 04/07/2025 9:10 AM EDT 04/07/2025 9:38 AM EDT Una Perla PharmD LAB BLOOD ORDERABLES Final R esult Performing Organization Address City/[facility]/ZIP Co de Phone Number [facility]
[address] [place] [address], * (ABNORMAL) CBC Auto Differential (04/07/2025 [...] 12.3 - 15.4 % 04/07/2025 9:50 AM [facility] RDW-SD 39.9 37.0 - 54.0 fl 04/07/2025 9:50 AM [facility] MPV 10.8 6.0 - 12.0 fL 04/07/2025 9:50 AM [facility] Platelets 149 140 - 450 10*3/mm3 04/07/2025 9:50 AM [facility] Neutrophil % 66.7 42.7 - 76.0 % 04/07/2025 9:50 AM [facility] Lymphocyte % 20.5 19.6 - 45.3 % 04/07/2025 9:50 AM [facility] Monocyte % 9.8 5.0 - 12.0 % 04/07/2025 9:50 AM [facility] Eosinophil % 2.1 0.3 - 6.2 % 04/07/2025 9:50 AM [facility] Basophil % 0.3 0.0 - 1.5 % 04/07/2025 9:50 AM [facility] Immature Grans % 0.6(H) 0.0 - 0.5 % 04/07/2025 9:50 AM [facility] Neutrophils, Absolute 5.75 1.70 - 7.00 10*3/mm3 04/07/2025 9:50 AM [facility] Lymphocytes, Absolute 1.77 0.70 - 3.10 10*3/mm3 04/07/2025 9:50 AM [facility] Monocytes, Absolute 0.85 0.10 - 0.90 10*3/mm3 04/07/2025 9:50 AM [facility] Eosinophils, Absolute 0.18 0.00 - 0.40 10*3/mm3 04/07/2025 9:50 AM [facility] Basophils, Absolute 0.03 0.00 - 0.20 10*3/mm3 04/07/2025 9:50 AM [facility] Immature Grans, Absolute 0.05 0.00 - 0.05 10*3/mm3 04/07/2025 9:50 AM EDT [facility] nRBC 0.0 0.0 - 0.2 /100 WBC 04/07/2025 9:50 AM EDT [facility] Blood Venipuncture / Unknown 04/07/2025 9:10 AM EDT 04/07/2025 9:38 AM EDT us Jason Álvarez DO LAB BLOOD ORDERABLES Final Resul t [facility]
[address] [place] [address], * (ABNORMAL) Basic Metabolic Panel (04/07/2025 9:10 [...] Final Resul t [facility]
[address] [place] [address], * MRI Tibia Fibula Right With & [...] [place] 04/07/2025 9:58 AM EDT Workstation ID: [id number] Narrative 04/07/2025 9:58 AM EDT MRI TIBIA [...] [place] 04/07/2025 9:58 AM EDT Workstation ID: [id number] Sushil Dean Jr., MD IMG MRI ORDERABLES Mary Beth l Result * Heparin Anti-Xa (04/07/2025 1:42 AM EDT) [facility] Heparin Anti-Xa (UFH) 0.38 0.30 - 0.70 IU/ml 04/07/2025 2:14 AM EDT [facility] Blood Venipuncture / Unknown 04/07/2025 1:42 AM EDT 04/07/2025 1:54 AM EDT Chelsie Turpin [facility] LAB BLOOD ORDERABLES Final R esult [facility]
[address] [place] [address], * Heparin Anti-Xa (04/06/2025 7:16 PM EDT) [facility] Heparin Anti-Xa (UFH) 0.33 0.30 - 0.70 IU/ml 04/06/2025 7:50 PM EDT [facility] Blood Venipuncture / Unknown 04/06/2025 7:16 PM EDT 04/06/2025 7:35 PM EDT Cherri Beatty [facility] LAB BLOOD ORDERABLES Final Res ult Performing Organization Address [facility] Co de Phone Number [facility]
[address] [place] [address], * Potassium (04/06/2025 7:16 PM EDT) [facility] Potassium 4.0 3.5 - 5.2 mmol/L 04/06/2025 7:53 PM EDT [facility] Blood Venipuncture / Unknown 04/06/2025 7:16 PM EDT 04/06/2025 7:35 PM EDT Jason Álvarez DO LAB BLOOD ORDERABLES Final Resul t Performing Organization Address [facility] de Phone Number [facility]
[address] [place] [address], * (ABNORMAL) Heparin Anti-Xa (04/06/2025 12:36 PM EDT) [facility] Heparin Anti-Xa (UFH) 0.24(L) 0.30 - 0.70 IU/ml 04/06/2025 1:23 PM EDT [facility] Blood Venipuncture / Unknown 04/06/2025 12:36 PM EDT 04/06/2025 1:07 PM EDT Una Perla PharmD LAB BLOOD ORDERABLES Final R esult Performing Organization Address [facility] Co de Phone Number [facility]
[address] [place] [address], * (ABNORMAL) Heparin Anti-Xa (04/06/2025 3:42 AM EDT) [facility] Heparin Anti-Xa (UFH) 0.25(L) 0.30 - 0.70 IU/ml 04/06/2025 5:30 AM EDT [facility] Blood Venipuncture / Unknown 04/06/2025 3:42 AM EDT 04/06/2025 4:59 AM EDT Chelsie Dyana [facility] LAB BLOOD ORDERABLES Final R esult [facility]
[address] [place] [address], * (ABNORMAL) Basic Metabolic Panel (04/06/2025 3:42 AM EDT) [facility] Glucose 94 65 - 99 mg/dL [...] Final Resul t [facility]
[address] [place] [address], * (ABNORMAL) CBC Auto Differential (04/06/2025 3:41 [...] 79.0 - 97.0 fL [facility]/06[facility]2025 5[facility] MCH 27.4 26.6 - 33.0 pg 04/06/2025 5:04 AM [facility] MCHC 31.8 31.5 - 35.7 g/dL 04/06/2025 5:04 AM [facility] RDW 12.8 12.3 - 15.4 % 04/06/2025 5:04 AM [facility] RDW-SD 40.0 37.0 - 54.0 fl 04/06/2025 5:04 AM [facility] MPV 11.7 6.0 - 12.0 fL 04/06/2025 5:04 AM [facility] Platelets 115(L) 140 - 450 10*3/mm3 04/06/2025 5:04 AM [facility] Neutrophil % 65.3 42.7 - 76.0 % 04/06/2025 5:04 AM [facility] Lymphocyte % 20.5 19.6 - 45.3 % 04/06/2025 5:04 AM [facility] Monocyte % 11.8 5.0 - 12.0 % 04/06/2025 5:04 AM [facility] Eosinophil % 1.8 0.3 - 6.2 % 04/06/2025 5:04 AM [facility] Basophil % 0.3 0.0 - 1.5 % 04/06/2025 5:04 [facility] Immature Grans % 0.3 0.0 - 0.5 % 04/06/2025 5:04 AM [facility] Neutrophils, Absolute 7.09(H) 1.70 - 7.00 10*3/mm3 04/06/2025 5:04 [facility] Lymphocytes, Absolute 2.23 0.70 - 3.10 10*3/mm3 04/06/2025 5:04 AM [facility] Monocytes, Absolute 1.28(H) 0.10 [...] ORDERABLES Final Resul t Performing Organization Address City/[facility] Co de Phone Number [facility]
[address] [place] [address], [place] [phone] * Heparin Anti-Xa (04/05/2025 8:43 PM EDT) Pathologist [facility] Heparin Anti-Xa (UFH) 0.38 0.30 - 0.70 IU/ml 04/05/2025 9:09 PM EDT [facility] Blood Venipuncture / Unknown 04/05/2025 8:43 PM EDT 04/05/2025 8:55 PM EDT us Cherri Beatty [facility] LAB BLOOD ORDERABLES Final Res ult Performing Organization Address City/[facility] Co de Phone Number [facility]
[address] [place] [address], [place] [phone] * CK (04/05/2025 12:15 PM EDT) Creatine Kinase 140 20 - 200 U/L 04/05/2025 1:31 PM EDT [facility] Blood Venipuncture / Unknown 04/05/2025 12:15 PM EDT 04/05/2025 1:03 PM EDT Carlton Mead MD LAB BLOOD ORDERABLES Final R esult Performing Organization Address City/[facility]/ZIP Co de Phone Number [facility]
[address] [place] [address], * (ABNORMAL) Heparin Anti-Xa (04/05/2025 12:15 PM EDT) [facility] Heparin Anti-Xa (UFH) 0.17(L) 0.30 - 0.70 IU/ml 04/05/2025 1:21 PM EDT [facility] Blood Venipuncture / Unknown 04/05/2025 12:15 PM EDT 04/05/2025 1:04 PM EDT Una Perla PharmD LAB BLOOD ORDERABLES Final R esult Performing Organization Address City/[facility] Co de Phone Number [facility]
[address] [place] [address], * (ABNORMAL) aPTT (04/05/2025 3:54 AM EDT) [facility] PTT 35.3(L) 60.0 - 90.0 seconds 04/05/2025 4:31 AM EDT [facility] Blood Venipuncture / Unknown 04/05/2025 3:54 AM EDT 04/05/2025 4:15 AM EDT Narrative [facility] - 04/05/2025 4:31 AM EDT PTT = The equivalent PTT values for the therapeutic range of heparin levels at 0.3 to 0.5 U/ml are 60 to 70 seconds. [employer] LAB BLOOD ORDERABLES Final R esult [facility]
[address] [place] [address], * Heparin Anti-Xa (04/05/2025 3:54 AM EDT) Pathologist [facility] Heparin Anti-Xa (UFH) 0.30 0.30 - 0.70 IU/ml 04/05/2025 4:32 AM EDT [facility] Blood Venipuncture / Unknown 04/05/2025 3:54 AM EDT 04/05/2025 4:15 AM EDT [employer] LAB BLOOD ORDERABLES Final R esult Performing Organization Address City/[facility]/ZIP Co de Phone Number [facility]
[address] [place] [address], * (ABNORMAL) CBC Auto Differential (04/05/2025 3:54 AM EDT) [facility] WBC 11.18(H) 3.40 - 10.80 10*3/mm3 [...] 31.5 - 35.7 g/dL 04/05/2025 4:20 AM [facility] RDW 12.9 12.3 - 15.4 % 04/05/2025 4:20 AM [facility] RDW-SD 39.7 37.0 - 54.0 fl 04/05/2025 4:20 AM [facility] MPV 10.2 6.0 - 12.0 fL 04/05/2025 4:20 AM [facility] Platelets 160 140 - 450 10*3/mm3 04/05/2025 4:20 AM [facility] Neutrophil % 73.5 42.7 - 76.0 % 04/05/2025 4:20 AM [facility] Lymphocyte % 14.0(L) 19.6 - 45.3 % 04/05/2025 4:20 AM [facility] Monocyte % 11.0 5.0 - 12.0 % 04/05/2025 4:20 AM [facility] Eosinophil % 0.8 0.3 - 6.2 % 04/05/2025 4:20 AM [facility] Basophil % 0.3 0.0 - 1.5 % 04/05/2025 4:20 AM [facility] Immature Grans % 0.4 0.0 - 0.5 % 04/05/2025 4:20 AM [facility] Neutrophils, Absolute 8.23(H) 1.70 - 7.00 10*3/mm3 04/05/2025 4:20 AM [facility] Lymphocytes, Absolute 1.56 0.70 - 3.10 10*3/mm3 04/05/2025 4:20 AM [facility] Monocytes, Absolute 1.23(H) 0.10 - 0.90 10*3/mm3 04/05/2025 4:20 AM [facility] Eosinophils, Absolute 0.09 0.00 - 0.40 10*3/mm3 04/05/2025 4:20 AM [facility] Basophils, Absolute 0.03 [...] Final R esult [facility]
[address] [place] [address], * (ABNORMAL) Basic Metabolic Panel (04/05/2025 3:54 [...] Final Re sult [facility]
[address] [place] [address], * (ABNORMAL) aPTT (04/05/2025 12:18 AM EDT) PTT 33.6(L) 60.0 - 90.0 seconds 04/05/2025 12:53 AM EDT [facility] Blood Venipuncture / Unknown 04/05/2025 12:18 AM EDT 04/05/2025 12:37 AM EDT [facility] LABORATORY - 04/05/2025 12:53 AM EDT PTT = The equivalent PTT values for the therapeutic range of heparin levels at 0.3 to 0.5 U/ml are 60 to 70 seconds. [email or web address] LAB BLOOD ORDERABLES Final R esult [facility]
[address] [place] [address], [place] [phone] * (ABNORMAL) Protime-INR (04/05/2025 12:18 AM EDT) Protime 15.9(H) 12.2 - 15.3 Seconds 04/05/2025 12:53 AM EDT [facility] INR 1.19(H) 0.89 - 1.12 04/05/2025 12:53 AM EDT [facility] Blood Venipuncture / Unknown 04/05/2025 12:18 AM EDT 04/05/2025 12:37 AM EDT [email or web address] [facility] LAB BLOOD ORDERABLES Final R esult Performing Organization Address [facility] Co de Phone Number [facility]
[address] [place] [address], [place] [phone] * Heparin Anti-Xa (04/05/2025 12:18 AM EDT) Pathologist [facility] Heparin Anti-Xa (UFH) 0.39 0.30 - 0.70 IU/ml 04/05/2025 12:54 AM EDT [facility] Blood Venipuncture / Unknown 04/05/2025 12:18 AM EDT 04/05/2025 12:37 AM EDT [email or web address] [facility] LAB BLOOD ORDERABLES Final R esult Performing Organization Address City/[facility]/ZIP Co de Phone Number [facility]
[address] [place] [address], [place] [phone] * MRI Tibia Fibula Right With & [...] MD 04/04/2025 11:00 PM EDT Workstation ID: [id number] Narrative 04/04/2025 11:00 PM EDT MRI TIBIA [...] MD 04/04/2025 11:00 PM EDT Workstation ID: [id number] Leonora Shepherd MD IMG MRI ORDERABLES Final Resu lt * POC Creatinine (04/04/2025 2:49 PM EDT) Creatinine 1.10 0.60 - 1.30 mg/dL 04/07/2025 7:14 PM EDT [facility] Comment:Serial Number: [id number] [id number] Venous Blood 04/04/2025 2:49 PM EDT 04/07/2025 7:14 PM EDT Jason Álvarez DO POINT OF CARE TEST ORDERABLES Fi nal Result [facility]
[address] [place] [address], [place] [phone] * (ABNORMAL) CBC Auto Differential (04/04/2025 2:47 PM EDT) [facility] Signature WBC 12.72(H) 3.40 - 10.80 [...] Fin al Result [facility]
[address] [place] [address], * (ABNORMAL) C-reactive Protein (04/04/2025 2:47 PM EDT) Pathologist [facility] C-Reactive Protein 8.57(H) 0.00 - 0.50 mg/dL 04/04/2025 3:26 PM EDT [facility] Blood Venipuncture / Unknown 04/04/2025 2:47 PM EDT 04/04/2025 2:52 PM EDT Mario Ortiz Keo LAB BLOOD ORDERABLES Fin al Result [facility]
[address] [place] [address], * (ABNORMAL) Sedimentation Rate (04/04/2025 2:47 PM EDT) [facility] Sed Rate 51(H) 0 - 15 mm/hr 04/04/2025 3:06 PM EDT [facility] Blood Venipuncture / Unknown 04/04/2025 2:47 PM EDT 04/04/2025 2:52 PM EDT Mario Ortiz Keo LAB BLOOD ORDERABLES Fin al Result Performing Organization Address City/[facility]/ZIP Co de Phone Number [facility]
[address] [place] [address], * Comprehensive Metabolic Panel (04/04/2025 2:47 PM EDT) [facility] Glucose 90 65 - 99 mg/dL [...] - 10.5 mg/dL 04/04/2025 3:26 PM EDT [facility] Total Protein 7.3 6.0 - 8.5 g/dL 04/04/2025 3:26 PM EDT [facility] Albumin 4.1 3.5 - 5.2 g/dL 04/04/2025 3:26 PM EDT [facility] ALT (SGPT) 26 1 - 41 U/L 04/04/2025 3:26 PM EDT [facility] AST (SGOT) 25 1 - 40 U/L 04/04/2025 3:26 PM EDT [facility] Alkaline Phosphatase 106 39 - 117 U/L 04/04/2025 3:26 PM T [facility] Total Bilirubin 1.0 0.0 - 1.2 mg/dL 04/04/2025 3:26 PM EDT [facility] Globulin 3.2 gm/dL 04/04/2025 3:26 PM T [facility] Comment:Calculated Result A/G Ratio 1.3 g/dL 04/04/2025 3:26 PM EDT [facility] BUN/Creatinine Ratio 19.5 7.0 - 25.0 04/04/2025 3:26 PM T [facility] Anion Gap 10.7 5.0 - 15.0 mmol/L 04/04/2025 3:26 PM T [facility] eGFR 102.5 >60.0 mL/min/1.7 3 04/04/2025 3:26 PM [facility] Blood Venipuncture / [...] Fin al Result [facility]
[address] [place] [address], documented in this encounter Visit Diagnoses Diagnosis [...] Salazar, KELL)1943 (Given - Provider: Anahy Marcelino, DRAWING FRAME TENDER)[id number] (Canceled Entry - Provider: Anahy Marcelino DRAWING FRAME TENDER - Comment: previously given) 0837 (Given - [...] medication prescribed for a lower pain scale. ([facility]) If given for pain, use the [...] Continuous Medication Order 04/09/2025 04/10/2025 04/11/2025 heparin 15747 units/250 mL (100 units/mL) in 0.45 % [...] documented as of this encounter Care Teams Market Investigator Relationship Specialty Start Date End Date Provider, [place] [address] PCP - General 05/09/23 documented as of this encounter
--- OUTSIDE RECORDS SUMMARY | 2025-04-08 15:34 | XMS_ITS | Encounter Summary ---
Author Organization [facility] Address [address] [place] [address] Care Team Providers Care Radio Repairman Name Role Phone Provider, No Known Primary Care Provider Unavail able Reason for Visit * Auth/Cert Specialty Diagnoses / Procedures Referred By Bulmaro muniz Referred To Contact Diagnoses Right BKA infection Referral ID Status Reason Start Date Expiration Date Visits Re quested Visits Authorized [id number] 1 1 Encounter Details Date Type Department Care Team (Late st Contact Info) Description 04/08/2025 3:34 PM EDT Anesthesia Event [facility] OR [address] [place] [address] Ulises Hoffman MD [address] [place] [address] Jairo Brooks MD [address] [place] [address] Anesthesia Record Procedure Summary Procedure Name Responsible [...] drink = 0.6 oz pur e alcohol) [facility] Utilities Answer Date Recorded In the past 12 months has [employer], oil, or water [employer] threatened to shut off services in your [...] or training? Not on file Preferred Language German 04/07/2025 Sex and Gender Information Value Date Recorded Sex Assigned at Not on file Legal Sex Male 7:30 PM EDT Gender Identity Not on file Sexual Orientation Not on file documented as of this encounter OR Notes * Anesthesia Postprocedure Evaluation - Stan Casillas CRNA - 04/08/2025 4:40 PM EDT Patient: Won Dennis Procedure Summary Date: 04/08/25 Room / Location: [facility] OR [address] [place] [address] [facility] [place] Anesthesia Start: 1533 Anesthesia Stop: [...] ROS Abdominal Substance History - negative use HYDROELECTRIC PLANT OPERATOR negative manager salt ROS Other Anesthesia Plan ASA 3 general [...] documented as of this encounter Care Teams Radio Repairman Relationship Specialty Start Date End Date Provider, [place] [address] PCP - General 05/09/23 documented as of this encounter
--- OUTSIDE RECORDS SUMMARY | 2025-05-05 08:00 | XMS_ITS | Clinical Summary ---
Author Organization [facility] Address [address] [place] [address] Phone Care Team Providers Care Business Solutions Architect Name Role Phone Unavailable Unavailable Conditions or Problems No information available. Medications No information available. Medications Administered No information available. Allergies, Adverse Reactions, Alerts No information available. Results No information available. Plan of Care No information available. Procedures No information available. Vital Signs No information available. Immunizations No information available. Advance Directives No information available.
--- OUTSIDE RECORDS SUMMARY | 2025-05-05 08:01 | XMS_ITS | Data Portability ---
Author Organization [place] - [facility] ADMIN Address [address] [place] [id number] Care Team Providers Care Billing Collections Specialist Name Role Phone SYBIL WILLIAM Primary Care Provider [phone] Assessment No assessment recorded. Plan of Treatment Reminders Order Date Submit Date Provider Last Modified By Organization Details Last Modified Time Details Appointments Establish ed Visit 15 min 2024 10:00A M Randy Torres MD Not available Not available Not available Lab C-reactiv e protein, quantitat nasim, serum or plasma [address] Lab, [address] [facility], [place], [address], 05/02/2024 17:36:31 ESR (erythroc yte sedimenta tion rate), blood [address] Lab, [address] [facility], [place], [address], 05/02/2024 17:36:31 C-reactiv e protein, quantitat nasim, serum or plasma 2023 024 [place] [address] [facility], [address], [address], [place], [address], 11/01/2023 08:08:32 ESR (erythroc yte sedimenta tion rate), blood 2023 024 [place] [address] [facility], [address], [address], [place], [address], 11/01/2023 08:08:32 CBC w/ auto diff 2023 024 [facility], [address] [facility], [place], [address], 10/24/2023 16:12:13 CMP, serum or plasma 2023 024 [facility], [address] [facility], [place], [address], 10/24/2023 16:42:07 CBC w/ auto diff 2023 024 [facility], [address] [facility], [place], [address], 07/25/2023 15:22:25 CMP, serum or plasma 2023 024 [facility], [address] [facility], [place], [address], 07/25/2023 16:32:05 prothromb in (factor II) [id number] mutation, blood [address] Lab, [address] [facility], [place], [address], 08/07/2023 08:55:21 factor VIII activity, plasma [address] Lab, [address] [facility], [place], [address], 08/01/2023 08:26:01 protein C + protein S, functiona l panel, plasma [address] Lab, [address] [place], [address], 08/01/2023 08:26:02 Referral None recorded. Procedures None recorded. Surgeries None recorded. Imaging None recorded. Medication Orders doxycycli ne hyclate [address] [facility], [address] [place] [address], [address], [place], [address], 10/25/2023 09:18:27 Patient TargetsNo targets recorded. Patient InstructionsNo instructions recorded. Reason for Referral None Reported. Results Created Date Observation Date Name Description Value Unit Range Abnormal Flag Note LastModifiedBy Organization Detail LastModifiedTime 07/06/20 23 07/07/2023 COMP. METAB OLIC PANEL (14) glucose 92 mg/dL 70-99 Not Available [facility] ([facility]) [address] [place], [address], 07/07/2023 13:08:40 07/06/20 23 07/07/2023 COMP. METAB OLIC PANEL (14) BUN 18 mg/dL 6-24 Not Available [facility] ([facility]) [address] [place], [address], 07/07/2023 13:08:40 07/06/20 23 07/07/2023 COMP. METAB OLIC PANEL (14) creatinine 0.85 mg/dL 0.76-1 .27 Not Available [facility] ([facility]) [address] [place], [address], 07/07/2023 13:08:40 07/06/20 23 07/07/2023 COMP. METAB OLIC PANEL (14) eGFR 111 mL/mi n/1.7 3 >59 Not Available [facility] ([facility]) [address] [place], [address], 07/07/2023 13:08:40 07/06/20 23 07/07/2023 COMP. METAB OLIC PANEL (14) BUN/creatini ne ratio 21 9-20 above high normal Not Available [facility] ([facility]) [address] [place], [address], 07/07/2023 13:08:40 07/06/20 23 07/07/2023 COMP. METAB OLIC PANEL (14) sodium 140 mmol/ L 134-14 4 Not Available [facility] ([facility]) [address] [facility] [place], [address], 07/07/2023 13:08:40 07/06/20 23 07/07/2023 COMP. METAB OLIC PANEL (14) potassium 4.1 mmol/ L 3.5-5. 2 Not Available [facility] ([facility]) [address] [facility], [place], [address], 07/07/2023 13:08:40 07/06/20 23 07/07/2023 COMP. METAB OLIC PANEL (14) chloride 105 mmol/ L 96-106 Not Available [facility] ([facility]) [address] [facility], [place], [address], 07/07/2023 13:08:40 07/06/20 23 07/07/2023 COMP. METAB OLIC PANEL (14) carbon dioxide, total 22 mmol/ L - Not Available [facility] ([facility]) [address] [facility] [place], [address], 07/07/2023 13:08:40 07/06/20 23 07/07/2023 COMP. METAB OLIC PANEL (14) calcium 8.9 mg/dL 8.7-10 .2 Not Available [facility] ([facility]) [address] [facility], [place], [address], 07/07/2023 13:08:40 07/06/20 23 07/07/2023 COMP. METAB OLIC PANEL (14) protein, total 7.3 g/dL 6.0-8. 5 Not Available [facility] ([facility]) [address] [facility] [place], [address], 07/07/2023 13:08:40 07/06/20 23 07/07/2023 COMP. METAB OLIC PANEL (14) albumin 4.3 g/dL 4.1-5. 1 Not Available [facility] ([facility]) [address] [facility] [place], [address], 07/07/2023 13:08:40 07/06/20 23 07/07/2023 COMP. METAB OLIC PANEL (14) globulin, total 3.0 g/dL 1.5-4. 5 Not Available [facility] ([facility]) [address] [facility] [place], [address], 07/07/2023 13:08:40 07/06/20 23 07/07/2023 COMP. METAB OLIC PANEL (14) A/G ratio 1.4 1.2-2. 2 Not Available [facility] ([facility]) [address] [facility] [place], [address], 07/07/2023 13:08:40 07/06/20 23 07/07/2023 COMP. METAB OLIC PANEL (14) bilirubin, total 0.3 mg/dL 0.0-1. 2 Not Available [facility] ([facility]) [address] [facility] [place], [address], 07/07/2023 13:08:40 07/06/20 23 07/07/2023 COMP. METAB OLIC PANEL (14) alkaline phosphatase 85 IU/L 44-121 Not Available [facility] ([facility]) [address] [facility] [place], [address], 07/07/2023 13:08:40 07/06/20 23 07/07/2023 COMP. METAB OLIC PANEL (14) AST (SGOT) 24 IU/L 0-40 Not Available [facility] ([facility]) [address] [facility] [place], [address], 07/07/2023 13:08:40 07/06/20 23 07/07/2023 COMP. METAB OLIC PANEL (14) ALT (SGPT) 25 IU/L 0-44 Not Available [facility] ([facility]) [address] [facility], [place], [address], 07/07/2023 13:08:40 07/06/20 23 07/07/2023 SEDIM ENTAT ION RATE- WESTE RGREN sedimentatio n rate-westerg los 28 mm/HR 0-15 above high normal Not Available [facility] ([facility]) [address] [facility], [place], [address], 07/07/2023 13:08:42 07/06/20 23 07/07/2023 C-CHANA CTIVE PROTE IN, QUANT C-reactive protein, quant 11 mg/L 0-10 above high normal Not Available [facility] ([facility]) [address] [facility], [place], [address], 07/07/2023 13:08:43 07/25/19 24 07/25/2023 CBC AUTO W DIFF WBC 6.7 K/uL 4.0-10 .5 Not Available [facility] ([facility]) [address] [facility], [place], [address], 07/25/2023 15:22:25 07/25/19 24 07/25/2023 CBC AUTO W DIFF RBC 5.7 M/mm3 4.7-6. 1 Not Available [facility] ([facility]) [address] [facility], [place], [address], 07/25/2023 15:22:25 07/25/19 24 07/25/2023 CBC AUTO W DIFF HGB 14.8 gm/dL 13.5-1 8.0 Not Available [facility] ([facility]) [address] [place], [address], 07/25/2023 15:22:25 07/25/19 24 07/25/2023 CBC AUTO W DIFF HCT 45.4 % 42.0-5 2.0 Not Available [facility] ([facility]) [address] [place], [address], 07/25/2023 15:22:25 07/25/19 24 07/25/2023 CBC AUTO W DIFF MCV 79.6 fL 78-100 Not Available [facility] ([facility]) [address], [place], [address], 07/25/2023 15:22:25 07/25/19 24 07/25/2023 CBC AUTO W DIFF MCH 26.0 pg 27-31 low Not Available [facility] ([facility]) [address], [place], [address], 07/25/2023 15:22:25 07/25/19 24 07/25/2023 CBC AUTO W DIFF MCHC 32.6 g/dL 32-36 Not Available [facility] ([facility]) [address], [place], [address], 07/25/2023 15:22:25 07/25/19 24 07/25/2023 CBC AUTO W DIFF RDW 13.7 % 11.5-1 4.0 Not Available [facility] ([facility]) [address] , [place], [address], 07/25/2023 15:22:25 07/25/19 24 07/25/2023 CBC AUTO W DIFF platelet count 279 K/uL 150-45 0 Not Available [facility] ([facility]) [address] , [place], [address], 07/25/2023 15:22:25 07/25/19 24 07/25/2023 CBC AUTO W DIFF MPV 10.0 fL 6-9.5 high Not Available [facility] ([facility]) [address] , [place], [address], 07/25/2023 15:22:25 07/25/19 24 07/25/2023 CBC AUTO W DIFF neutrophil% 61.2 % 43-65 Not Available [facility] ([facility]) [address] , [place], [address], 07/25/2023 15:22:25 07/25/19 24 07/25/2023 CBC AUTO W DIFF lymphocyte% 25.7 % 20.5-4 5.5 Not Available [facility] ([facility]) [address], [place], [address], 07/25/2023 15:22:25 07/25/19 24 07/25/2023 CBC AUTO W DIFF monocyte% 9.2 % 5.5-11 .7 Not Available [facility] ([facility]) [address], [place], [address], 07/25/2023 15:22:25 07/25/19 24 07/25/2023 CBC AUTO W DIFF eosinophil% 3.0 % 0.9-2. 9 high Not Available [facility] ([facility]) [address], [place], [address], 07/25/2023 15:22:25 07/25/19 24 07/25/2023 CBC AUTO W DIFF basophil% 0.6 % 0.2-1. 0 Not Available [facility] ([facility]) [address], [place], [address], 07/25/2023 15:22:25 07/25/19 24 07/25/2023 CBC AUTO W DIFF immature granulocytes % 0.3 % 0.0-0. 8 Not Available [facility] ([facility]) [address], [place], [address], 07/25/2023 15:22:25 07/25/19 24 07/25/2023 CBC AUTO W DIFF nucleated red blood cells % 0.0 % Not Available [facility] ([facility]) [address] [place], [address], 07/25/2023 15:22:25 07/25/19 24 07/25/2023 CBC AUTO W DIFF neutrophil# 4.1 K/uL 2.2-4. 8 Not Available [facility] ([facility]) [address] [facility], [place], [address], 07/25/2023 15:22:25 07/25/19 24 07/25/2023 CBC AUTO W DIFF lymphocyte# 1.7 cell/ mcL 1.3-2. 9 Not Available [facility] ([facility]) [address] [facility], [place], [address], 07/25/2023 15:22:25 07/25/19 24 07/25/2023 CBC AUTO W DIFF monocyte# 0.6 cell/ mcL 0.3-0. 8 Not Available [facility] ([facility]) [address] [facility], [place], [address], 07/25/2023 15:22:25 07/25/19 24 07/25/2023 CBC AUTO W DIFF eosinophil# 0.2 cell/ mcL 0-0.2 Not Available [facility] ([facility]) [address] [facility], [place], [address], 07/25/2023 15:22:25 07/25/19 24 07/25/2023 CBC AUTO W DIFF basophil# 0.0 cell/ mcL 0.0-1. 0 Not Available [facility] ([facility]) [address] [place], [address], 07/25/2023 15:22:25 07/25/19 24 07/25/2023 CBC AUTO W DIFF immature gramulocytes # 0.02 K/uL Not Available [facility] ([facility]) [address] [place], [address], 07/25/2023 15:22:25 07/25/19 24 07/25/2023 CBC AUTO W DIFF nucleated red blood cells # 0.00 K/uL Not Available [facility] ([facility]) [address] [place], [address], 07/25/2023 15:22:25 07/25/19 24 07/25/2023 CBC AUTO W DIFF manual differential NO Not Available [facility] ([facility]) [address], [place], [address], 07/25/2023 15:22:25 07/25/19 24 07/25/2023 PT (PROT HROMB IN TIME) W INR prothrombin time 11.0 secon ds 9.3-11 .4 Not Available [facility] ([facility]) [address], [place], [address], 07/25/2023 16:27:47 07/25/19 24 07/25/2023 PT (PROT [...] s Not Available [facility] ([facility]) [address] , [place], [address], 07/25/2023 16:27:47 07/25/19 24 07/25/2023 COMP METAB OLIC PANEL sodium 142 mmol/ L 136-14 5 Not Available [facility] ([facility]) [address] , [place], [address], 07/25/2023 16:32:05 07/25/19 24 07/25/2023 COMP METAB OLIC PANEL potassium 3.7 mmol/ L 3.6-5. 0 Not Available [facility] ([facility]) [address] , [place], [address], 07/25/2023 16:32:05 07/25/19 24 07/25/2023 COMP METAB OLIC PANEL chloride 104 mmol/ L 98-107 Not Available [facility] ([facility]) [address], [place], [address], 07/25/2023 16:32:05 07/25/19 24 07/25/2023 COMP METAB OLIC PANEL carbon dioxide 29.1 mmol/ L 21.0-3 2.0 Not Available [facility] ([facility]) [address], [place], [address], 07/25/2023 16:32:05 07/25/19 24 07/25/2023 COMP METAB OLIC PANEL anion gap 12.6 Not Available [facility] ([facility]) [address], [place], [address], 07/25/2023 16:32:05 07/25/19 24 07/25/2023 COMP METAB OLIC PANEL glucose 85 mg/dL 70-120 Not Available [facility] ([facility]) [address] , [place], [address], 07/25/2023 16:32:05 07/25/19 24 07/25/2023 COMP METAB OLIC PANEL BUN 16 mg/dL 7-18 Not Available [facility] ([facility]) [address], [place], [address], 07/25/2023 16:32:05 07/25/19 24 07/25/2023 COMP METAB OLIC PANEL creatinine 0.8 mg/dL 0.6-1. 3 Not Available [facility] ([facility]) [address] , [place], [address], 07/25/2023 16:32:05 07/25/19 24 07/25/2023 COMP METAB OLIC PANEL glomerular filtration rate >60 mlper min 60- Not Available [facility] ([facility]) [address] , [place], [address], 07/25/2023 16:32:05 07/25/19 24 07/25/2023 COMP METAB OLIC PANEL total protein 7.6 g/dL 6.4-8. 2 Not Available [facility] ([facility]) [address], [place], [address], 07/25/2023 16:32:05 07/25/19 24 07/25/2023 COMP METAB OLIC PANEL albumin 3.5 g/dL 3.4-5. 0 Not Available [facility] ([facility]) [address] , [place], [address], 07/25/2023 16:32:05 07/25/19 24 07/25/2023 COMP METAB OLIC PANEL globulin 4.1 Not Available [facility] ([facility]) [address] , [place], [address], 07/25/2023 16:32:05 07/25/19 24 07/25/2023 COMP METAB OLIC PANEL alb/glob ratio 0.9 0.7-2 Not Available [facility] ([facility]) [address] , [place], [address], 07/25/2023 16:32:05 07/25/19 24 07/25/2023 COMP METAB OLIC PANEL calcium 8.8 mg/dL 8.5-10 .5 Not Available [facility] ([facility]) [address] , [place], [address], 07/25/2023 16:32:05 07/25/19 24 07/25/2023 COMP METAB OLIC PANEL bilirubin total 0.40 mg/dL 0.10-1 .00 Not Available [facility] ([facility]) [address] , [place], [address], 07/25/2023 16:32:05 07/25/19 24 07/25/2023 COMP METAB OLIC PANEL AST (SGOT) 24 U/L 0-37 Not Available [facility] ([facility]) [address] , [place], [address], 07/25/2023 16:32:05 07/25/19 24 07/25/2023 COMP METAB OLIC PANEL ALT (SGPT) 27 U/L 0-65 Not Available [facility] ([facility]) [address], [place], [address], 07/25/2023 16:32:05 07/25/19 24 07/25/2023 COMP METAB OLIC PANEL alk phosphatase 74 U/L 46-116 Not Available [facility] ([facility]) [address], [place], [address], 07/25/2023 16:32:05 07/25/19 24 07/27/2023 FACTO R VIII (8) ACTIV ITY factor VIII (8) activity 159 % 56-140 high Perfo rmed at: - [facility] [place] [address] [id number] Lab Direc tor: Linda ho MD, Phone : [phone] Not Available [facility] ([facility]) [address] [facility], [place], [address], 07/27/2023 06:19:41 07/25/19 24 07/27/2023 PROTE IN C FUNTI ONAL protein C functional 102 % 73-180 Perfo rmed at: [facility] - [facility] [place] [address] [place] [address] [facility] Lab Direc tor: Linda ho MD, Phone : [phone] Not Available [facility] ([facility]) [address] [facility], [place], [address], 07/27/2023 06:19:42 07/25/19 24 07/27/2023 PROTE IN [...] [address] , [place] [address] Lab Direc tor: Linda ho MD, Phone : [phone] Not Available [facility] ([facility]) [address], [place], [address], 07/27/2023 06:19:43 07/25/19 24 08/03/2023 FACTO R [...] Facto r V Leide n (PMID : 44141 767). Ad ditio nal risk facto rs [...] ders to discu ss resul ts at [phone] [phone] (2445 ). . Test Detai ls: Varia nt holly zed: c.*97 G>A, previ ously refer red to as G2021 0 A . Metho ds/Li mitat ions: DNA holly sis of the F2 gene ([id number] .[id number]) was perfo rmed by P CR [...] e lindy cteri stics deter mined by [employer] rp. It has not been clear ed or appro raquel by the Food and Drug Admin istra tion. . Refer ences : Fernanda Macias, Russ FULTON, Sammy Ho, Radha KING, Lucas in ; [facility] Pro fessi onal Pract ice and Guide lines Commi ttee. Adden dum: Rubio morley e of Medic al Briseyda ics conse nsus state ment on facto r V Leide n muta tion testi ng. [facility] Med. 2020Sep 11. doi: 10.10 38/s4 1436- 021-0 110 8-x. PMID: 25603 767. . Randi BOYD. Proth rombi n Throm bophi za. 2005Jan 31 Updat ed 2020Aug 13 . In: Ricki MP, Bhaskar contreras HH, Mary RA, et al., edito rs. GeneR bassamw s(R) Inter net . Shyam gipson ([place]): Unive rsity of Shyam Lowery; 1992- 2020. [...] 018-0 322-z . Epub 2017Apr 13. PMID: 66989 698. Not Available [facility] ([facility]) [address], [place], [address], 08/03/2023 13:12:27 07/25/19 24 08/03/2023 FACTO R II, DNA HOLLY SIS reviewed by: Tacho camp, PhD Direc tor, Molec ular Briseyda ics Perfo rmed at: TG - [facility] [address] , [facility] [place] [address] Lab Direc tor: Yaneth Sullivan formerly [facility] , Phone : [phone] Not Available [facility] ([facility]) [address] , [place], [address], 08/03/2023 13:12:27 10/24/19 24 10/24/2023 CBC AUTO W DIFF WBC 6.9 K/uL 4.0-10 .5 Not Available [facility] ([facility]) [address] , [place], [address], 10/24/2023 16:12:13 10/24/19 24 10/24/2023 CBC AUTO W DIFF RBC 5.7 M/mm3 4.7-6. 1 Not Available [facility] ([facility]) [address] , [place], [address], 10/24/2023 16:12:13 10/24/19 24 10/24/2023 CBC AUTO W DIFF HGB 14.7 gm/dL 13.5-1 8.0 Not Available [facility] ([facility]) [address] , [place], [address], 10/24/2023 16:12:13 10/24/19 24 10/24/2023 CBC AUTO W DIFF HCT 46.0 % 42.0-5 2.0 Not Available [facility] ([facility]) [address], [place], [address], 10/24/2023 16:12:13 10/24/19 24 10/24/2023 CBC AUTO W DIFF MCV 80.4 fL 78-100 Not Available [facility] ([facility]) [address] , [place], [address], 10/24/2023 16:12:13 10/24/19 24 10/24/2023 CBC AUTO W DIFF MCH 25.7 pg 27-31 low Not Available [facility] ([facility]) [address] , [place], [address], 10/24/2023 16:12:13 10/24/19 24 10/24/2023 CBC AUTO W DIFF MCHC 32.0 g/dL 32-36 Not Available [facility] ([facility]) [address] , [place], [address], 10/24/2023 16:12:13 10/24/19 24 10/24/2023 CBC AUTO W DIFF RDW 14.3 % 11.5-1 4.0 high Not Available [facility] ([facility]) [address] , [place], [address], 10/24/2023 16:12:13 10/24/19 24 10/24/2023 CBC AUTO W DIFF platelet count 258 K/uL 150-45 0 Not Available [facility] ([facility]) [address] , [place], [address], 10/24/2023 16:12:13 10/24/19 24 10/24/2023 CBC AUTO W DIFF MPV 9.6 fL 6-9.5 high Not Available [facility] ([facility]) [address] , [place], [address], 10/24/2023 16:12:13 10/24/19 24 10/24/2023 CBC AUTO W DIFF neutrophil% 70.1 % 43-65 high Not Available [facility] ([facility]) [address], [place], [address], 10/24/2023 16:12:13 10/24/19 24 10/24/2023 CBC AUTO W DIFF lymphocyte% 18.4 % 20.5-4 5.5 low Not Available [facility] ([facility]) [address], [place], [address], 10/24/2023 16:12:13 10/24/19 24 10/24/2023 CBC AUTO W DIFF monocyte% 8.7 % 5.5-11 .7 Not Available [facility] ([facility]) [address], [place], [address], 10/24/2023 16:12:13 10/24/19 24 10/24/2023 CBC AUTO W DIFF eosinophil% 2.3 % 0.9-2. 9 Not Available [facility] ([facility]) [address], [place], [address], 10/24/2023 16:12:13 10/24/19 24 10/24/2023 CBC AUTO W DIFF basophil% 0.4 % 0.2-1. 0 Not Available [facility] ([facility]) [address] [place], [address], 10/24/2023 16:12:13 10/24/19 24 10/24/2023 CBC AUTO W DIFF immature granulocytes % 0.1 % 0.0-0. 8 Not Available [facility] ([facility]) [address] [place], [address], 10/24/2023 16:12:13 10/24/19 24 10/24/2023 CBC AUTO W DIFF nucleated red blood cells % 0.0 % Not Available [facility] ([facility]) [address] [facility], [place], [address], 10/24/2023 16:12:13 10/24/19 24 10/24/2023 CBC AUTO W DIFF neutrophil# 4.8 K/uL 2.2-4. 8 Not Available [facility] ([facility]) [address], [place], [address], 10/24/2023 16:12:13 10/24/19 24 10/24/2023 CBC AUTO W DIFF lymphocyte# 1.3 cell/ mcL 1.3-2. 9 Not Available [facility] ([facility]) [address], [place], [address], 10/24/2023 16:12:13 10/24/19 24 10/24/2023 CBC AUTO W DIFF monocyte# 0.6 cell/ mcL 0.3-0. 8 Not Available [facility] ([facility]) [address], [place], [address], 10/24/2023 16:12:13 10/24/19 24 10/24/2023 CBC AUTO W DIFF eosinophil# 0.2 cell/ mcL 0-0.2 Not Available [facility] ([facility]) [address], [place], [address], 10/24/2023 16:12:13 10/24/19 24 10/24/2023 CBC AUTO W DIFF basophil# 0.0 cell/ mcL 0.0-1. 0 Not Available [facility] ([facility]) [address], [place], [address], 10/24/2023 16:12:13 10/24/19 24 10/24/2023 CBC AUTO W DIFF immature gramulocytes # 0.01 K/uL Not Available [facility] ([facility]) [address], [place], [address], 10/24/2023 16:12:13 10/24/19 24 10/24/2023 CBC AUTO W DIFF nucleated red blood cells # 0.00 K/uL Not Available [facility] ([facility]) [address], [place], [address], 10/24/2023 16:12:13 10/24/19 24 10/24/2023 CBC AUTO W DIFF manual differential NO Not Available [facility] ([facility]) [address], [place], [address], 10/24/2023 16:12:13 10/24/19 24 10/24/2023 COMP METAB OLIC PANEL sodium 139 mmol/ L 136-14 5 Not Available [facility] ([facility]) [address], [place], [address], 10/24/2023 16:42:07 10/24/19 24 10/24/2023 COMP METAB OLIC PANEL potassium 4.0 mmol/ L 3.6-5. 0 Not Available [facility] ([facility]) [address], [place], [address], 10/24/2023 16:42:07 10/24/19 24 10/24/2023 COMP METAB OLIC PANEL chloride 104 mmol/ L 98-107 Not Available [facility] ([facility]) [address], [place], [address], 10/24/2023 16:42:07 10/24/19 24 10/24/2023 COMP METAB OLIC PANEL carbon dioxide 28.1 mmol/ L 21.0-3 2.0 Not Available [facility] ([facility]) [address], [place], [address], 10/24/2023 16:42:07 10/24/19 24 10/24/2023 COMP METAB OLIC PANEL anion gap 10.9 Not Available [facility] ([facility]) [address] , [place], [address], 10/24/2023 16:42:07 10/24/19 24 10/24/2023 COMP METAB OLIC PANEL glucose 99 mg/dL 70-120 Not Available [facility] ([facility]) [address] , [place], [address], 10/24/2023 16:42:07 10/24/19 24 10/24/2023 COMP METAB OLIC PANEL BUN 16 mg/dL 7-18 Not Available [facility] ([facility]) [address] , [place], [address], 10/24/2023 16:42:07 10/24/19 24 10/24/2023 COMP METAB OLIC PANEL creatinine 0.9 mg/dL 0.6-1. 3 Not Available [facility] ([facility]) [address] , [place], [address], 10/24/2023 16:42:07 10/24/19 24 10/24/2023 COMP METAB OLIC PANEL glomerular filtration rate >60 mlper min 60- Not Available [facility] ([facility]) [address] , [place], [address], 10/24/2023 16:42:07 10/24/19 24 10/24/2023 COMP METAB OLIC PANEL total protein 7.2 g/dL 6.4-8. 2 Not Available [facility] ([facility]) [address] , [place], [address], 10/24/2023 16:42:07 10/24/19 24 10/24/2023 COMP METAB OLIC PANEL albumin 3.6 g/dL 3.4-5. 0 Not Available [facility] ([facility]) [address] , [place], [address], 10/24/2023 16:42:07 10/24/19 24 10/24/2023 COMP METAB OLIC PANEL globulin 3.6 Not Available [facility] ([facility]) [address] [place], [address], 10/24/2023 16:42:07 10/24/19 24 10/24/2023 COMP METAB OLIC PANEL alb/glob ratio 1.0 0.7-2 Not Available [facility] ([facility]) [address], [place], [address], 10/24/2023 16:42:07 10/24/19 24 10/24/2023 COMP METAB OLIC PANEL calcium 8.6 mg/dL 8.5-10 .5 Not Available [facility] ([facility]) [address] , [place], [address], 10/24/2023 16:42:07 10/24/19 24 10/24/2023 COMP METAB OLIC PANEL bilirubin total 0.50 mg/dL 0.10-1 .00 Not Available [facility] ([facility]) [address], [place], [address], 10/24/2023 16:42:07 10/24/19 24 10/24/2023 COMP METAB OLIC PANEL AST (SGOT) 23 U/L 0-37 Not Available [facility] ([facility]) [address], [place], [address], 10/24/2023 16:42:07 10/24/19 24 10/24/2023 COMP METAB OLIC PANEL ALT (SGPT) 39 U/L 0-65 Not Available [facility] ([facility]) [address] , [place], [address], 10/24/2023 16:42:07 10/24/19 24 10/24/2023 COMP METAB OLIC PANEL alk phosphatase 80 U/L 46-116 Not Available [facility] ([facility]) [address] , [place], [address], 10/24/2023 16:42:07 10/25/19 24 10/26/2023 SEDIM ENTAT ION RATE- WESTE RGREN sedimentatio n rate-westerg los 5 mm/HR 0-15 Not Available [facility] ([facility]) [address] [facility], [place], [address], 11/03/2023 15:11:19 10/25/19 24 10/27/2023 C-CHANA CTIVE PROTE IN, QUANT C-reactive protein, quant 15 mg/L 0-10 above high normal Not Available [facility] ([facility]) [address] [facility], [place], [address], 11/03/2023 15:11:21 04/23/20 24 04/23/2024 C-CHANA CTIVE PROTE IN (CRP) C-reactive protein, quant 1.1 mg/dL 0.05-0 .300 high Not Available [facility] ([facility]) [address] [facility], [place], [address], 04/23/2024 10:36:29 04/23/20 24 04/23/2024 SED RATE sed rate auto 4 0-15 Not Available [facility] ([facility]) [address] [facility], [place], [address], 04/23/2024 10:54:51 11/20/19 24 11/20/2023 [email or web address] s duple x US lwr RT ext [facility] [address] [place] [address] Phone: Fax: Name: GAYATHRI DENNIS Exam Date: 024 : 1979 Age 43 years Gender : M Access ion: [id number] Physic lou: LUCI BRADFODRi ty: [facility] Facili ty HSV: Outpat ient Exam: [...] OSUNA Admitt ing Provid er: SPENCER OSUNA giovany[address] - Physical Therapy [facility] [facility], [place], [address], 11/20/2023 12:58:54 11/20/19 24 11/20/2023 CT, angio gram, chest , w/ contr ast [facility] [address] [place] [address] Phone: Fax: Name: GAYATHRI DENNIS Exam Date: : 1979 Age 43 years Gender : M Access ion: [id number] Physic lou: LUCI BRADFORD Facili ty: [place] Facili ty HSV: Outpat ient [...] Thank you for referr GAYATHRI Rodríguez to [facility] al. Legall y authen ticate d by JADYN FarnsworthGAMAFouzia Macias IVO 11-19 12:06: 58 CC'ed Logic: Orderi ng Provid er: SPENCER OSUNA Attend ing Provid er: SPENCER OSUNA Referr ing Provid er: SPENCER OSUNA Admitt ing Provid er: SPENCER OSUNA [email or web address] [facility] - Physical Therapy [address] [place] [address], [place], [address], 11/21/2023 16:18:56 Result Notes Documentation Provider Name and Address Organization Details Recorded Time Ct, Angiogram, Chest, W/ Contrast : [address] [address] Name: WON DENNIS Exam Date: 11/20/2023 : 1980 Age 43 years Gender: M Physician: LUCI BARNES Facility: [facility] Facility HSV: Outpatient Exam: CTA CHEST [...] Time Methicillin resistant Staphylococ cus aureus infection 457689343 Active 2023 Amy jaramillo [place] [facility] [place] & [place] 4 10:16:00 High risk medication monitoring indicated 5283319888178 9103 Active 2023 Amy jaramillo [place] [facility] [place] & [place] 4 10:16:36 Problem Notes None recorded. Procedures Surgical History Date Name Laterality Status Provider Name and Address Organization Details Recorded Time 03/26/20 [address] cancelled [address], [place], [address], [place] [facility] [place] & [place] 03/18/2024 14:56:10 10/24/19 24 [place], [address], YVON Farnsworth [facility] & [place] 10/23/2023 10:53:19 07/25/19 24 Venipuncture completed Sarah SANZ [facility] & [place] 07/25/2023 14:41:20 amputation of lower limb completed Sarah Farnsworth [facility] & [place] 07/25/2023 13:57:05 Imaging Results None recorded. Procedure Notes None recorded. Medical Equipment None Reported. Allergies Allergen ID Allergen Name Allergen Category Reaction Reaction Severity Criticality Documentation Date Start Date Code Code System Note Provider Name and Address Organization Details Recorded Time 958171 cefdinir medicatio n Not available Not available Not available 06/02/2023 65036 RxNorm Isabel jaramillo, [facility] & [place] 10:06:00 Medications Name [...] active Not Available Not Available Not Available [facility] 10 billion cell-200 mg sprinkle capsule [...] Address Organization Details Last Updated DateTime 4 630581. 53 g 97.8 [degF] 89 /min 95 % 95 % 134/82 mm[Hg] Sarah Vidal [facility] & [place] 4 13:54:07 Date Recorded Body height Body mass index (BMI) Body weight Body temperature Heart rate Oxygen saturation Oxygen saturation in Arterial blood by Pulse oximetry Systolic And Diastolic Provider Name and Address Organization Details Last Updated DateTime 4 182.88 cm 43.3 kg/m2 632946. 97 g 98 [degF] 95 /min 96 % 96 % 137/92 mm[Hg] Sarah SANZ [facility] & [place] 4 14:44:48 Date Recorded Body height Body mass index (BMI) Body weight Body temperature Oxygen saturation Oxygen saturation in Arterial blood by Pulse oximetry Heart rate Systolic And Diastolic Provider Name and Address Organization Details Last Updated DateTime 4 182.88 cm 43.2 kg/m2 245884. 81 g 98.6 [degF] 95 % 95 % 86 /min 134/84 mm[Hg] Amy Aquino [facility] & [place] 4 08:59:12 Date Recorded Body height Body mass index (BMI) Body weight Body temperature Oxygen saturation Oxygen saturation in Arterial blood by Pulse oximetry Heart rate Systolic And Diastolic Provider Name and Address Organization Details Last Updated DateTime 4 182.88 cm 42.9 kg/m2 983766. 19 g 98 [degF] 94 % 94 % 70 /min 140/80 mm[Hg] Kalie Farnsworth [facility] & [place] 4 09:24:00 Date Recorded Heart rate Body height Oxygen saturation Oxygen saturation in Arterial blood by Pulse oximetry Body temperature Body mass index (BMI) Body weight Systolic And Diastolic Provider Name and Address Organization Details Last Updated DateTime 5 85 /min 180.34 cm 94 % 94 % 98.8 [degF] 41.7 kg/m2 145732. 12 g 140/96 mm[Hg] [facility] & [place] 5 11:13:21 Social History Question Answer Notes LastModified by Organizat ion Details LastModified Time Tobacco Smoking Status Never Smoker YVON Avitia [facility] & [place] 06/02/2023 10:06:28 Do You Have An Advance Directive? No [email or web address] Information not available 04/28/2025 Are You Blind Or Do You Have Difficulty Seeing? No [email or web address] Information not available 04/28/2025 What Was The Date Of Your Most Recent Tobacco Screening? 04/20/2025 [email or web address] Information not available 04/28/2025 Are You Passively Exposed To Smoke? No [email or web address] Information not available 04/28/2025 Sex: Unknown Functional Status Question Answer Note LastModified by Organizat Stream Details LastModified Time Do you use any illicit or recreational drugs? No [email or web address] Information not available 07/25/2023 What is your level of alcohol consumption? None [email or web address] Information not available 04/28/2025 Mental Status None recorded. Family History Nothing Reported. Medical History Condition Response Clotting Disorder Y Back Problems Y Hypertension Y Immunizations Vaccine Type Date Status Note Provider Nam e and Address Organization Details Recorded Time Td (adult), 2 Lf tetanus toxoid, preservative free, adsorbed 6 completed SarahYVON Witt [facility] & [place] 07/25/2023 13:54:15 Past Encounters Encounter ID Performer Location Encounter Start Date Encounter Closed Date Diagnosis/Indication Diagnosis SNOMED-CT Code Diagnosis ICD10 Code Diagnosis IMO Codes Diagnosis Note [id number] Randy Torres MD [facility] [address] [place] [address] 06/02/2023 09:54:50 06/02/2023 10:26:43 Osteomyelitis 67014364 M86.9 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 Influenza caused by Influenza A virus 934741276 J09.X2 Resolved.. No further oseltamivi r needed. High risk medication monitoring indicated 3079646640 3122190 Z76.89 Related to the daptomycin . I will check a total CK and continue to follow serial levels of this enzyme to make sure he develops no rhabdomyol ysis. [id number] Randy Torres MD [facility] [address] [place] [address] 06/09/2023 10:23:03 06/09/2023 10:54:12 Osteomyelitis 91950222 M86.9 Occurring in the right BKA stump [...] time. Methicilli n resistant Staphylococcus aureus infection 473152908 A49.02 As above High risk medication monitoring indicated 4628375883 1770189 Z76.89 This is related to the daptomycin . I will continue to monitor his total CK levels closely. [id number] Randy Torres MD [facility] [address] [place] [address] 06/28/2023 10:37:09 06/28/2023 11:22:08 Osteomyelitis 88689614 M86.9 Occurring in the right BKA stump [...] week. Methicilli n resistant Staphylococcus aureus infection 050500194 A49.02 As above [id number] Randy Torres MD [facility] [address] [facility] [place] [address] 07/06/2023 09:38:06 07/06/2023 10:00:10 Osteomyelitis 03140982 M86.9 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 Methicilli n resistant Staphylococcus aureus infection 592471141 A49.02 As above Adverse re action to drug 92062925 T50.905A Related to doxycyclin e. This is gastrointe stinal in nature. I will check his liver function testing to make sure he is not developing any hepatotoxi city. I will drop the dose to 100 mg per day. I want him to continue to take it with food. I will re-evaluat e next week. [id number] Randy Torres MD [facility] [address] [facility] [address] [facility] [place] [address] 07/12/2023 08:53:12 07/12/2023 09:54:35 Osteomyelitis 06772562 M86.9 Occurring in the right BKA stump [...] month. Methicilli n resistant Staphylococcus aureus infection 969005186 A49.02 As above [id number] Luci Barnes PA-C [facility] [address] [facility] [address] [facility] [place] [address] 07/25/2023 13:39:19 07/26/2023 06:33:52 Deep venous thrombosis 400066232 I82.409 Patient has a history of osteomyeli [...] performed when patient was hospitaliz ed at [facility] on May 26, 2023 with normal antithromb in 3 activity. No evidence of factor 5 Leiden mutation. Discussed with patient will order additional labs for further evaluation acquired hypercoagu lable disorder today. Discussed will likely continue on least the prophylact ic dose of Eliquis lifelong due to separate occurrence s of blood clots. Pulmonary embolism 73610 003 I26.99 Patient has a history of [...] s of blood clots. Anticoagulant therapy 18 7369564 Z79.01 Patient continues on Eliquis 5 mg 1 tab p.o. b.i.d.. He is tolerating without trouble. Discussed will likely continue on least the prophylact ic dose of Eliquis lifelong due to separate occurrence s of blood clots. [id number] Luci Barnes PA-C [facility] [address] [place] [address] 10/24/2023 14:29:27 10/24/2023 15:33:34 Deep venous thrombosis 746464571 I82.409 Patient has a history of osteomyeli [...] performed when patient was hospitaliz ed at [facility] on May 26, 2023 with [...] Will follow up labs today. Pulmonary embolism 71162 003 I26.99 Patient has a history of [...] follow up labs today. Anticoagulant therapy 18 9635123 Z79.01 Patient continues on Eliquis 5 mg 1 tab p.o. b.i.d.. He is tolerating without trouble. Discussed will continue on least the prophylact ic dose of Eliquis lifelong due to separate occurrence s of blood clots. Will follow up venous duplex of lower extremity and chest CTA to make sure no evidence of embolism before reducing Eliquis dose to 2.5 mg b.i.d. [id number] Randy Torres MD [facility] [address] [place] [address] 10/25/2023 08:49:58 10/25/2023 10:57:40 Osteomyelitis 39193978 M86.9 Occurring in the right BKA stump [...] months. Methicilli n resistant Staphylococcus aureus infection 480471915 A49.02 As above High risk medication monitoring indicated 7900861922 8510863 Z76.89 This is related to the chronic suppressiv e doxycyclin e. I reviewed his liver function testing from yesterday. There is no evidence of any hepatotoxi city. I will continue to monitor this at each visit. I also counseled him about the risk of photosensi tivity with doxycyclin e. [id number] Randy Torres MD [facility] -[address] [place] [address] 04/23/2024 09:14:33 04/23/2024 09:34:49 Osteomyelitis 50469239 M86.9 Occurring in the right BKA stump [...] month. Methicilli n resistant Staphylococcus aureus infection 205214540 A49.02 As above [id number] Randy Torres MD [facility] -[address] [facility] [address] [place] [address] 04/28/2025 11:00:57 04/28/2025 11:33:23 Osteomyelitis 84534190 M86.9 927564 This patient has a recurrentc hronic osteomyeli [...] week. Methicilli n resistant Staphylococcus aureus infection 385704907 B95.62 5143047 As above Health Concerns Section Related Observation LastModified by Organization Detai ls LastModified Time None Recorded Concern Status LastModified by Organization Details LastModified Time None Recorded Advance Directives Directive N: Payers Insurance Date Sequence Insurance Name Policy Number Policy Brantley Covered Member ID Brantley Member ID Guarantor Name 01/27/2024 1 [place] [id number] Won Dennis [id number] Won Dennis 05/01/2025 2 [facility] - FFS/TRADITIONA L Won Dennis [id number] Won Dennis 05/01/2025 1 [place] Won Dennis [id number] Won Dennis 04/28/2025 1 [employer] Won Dennis [id number] Won Dennis 04/30/2025 3 [facility] (MEDICAID REPLACEMENT - HMO) Won Dennis [id number] Won Dennis Notes Date Note Type Note [...] Labs performed when patient was hospitalized at [facility] on May 26, 2023 with normal antithrombin 3 activity. No evidence of factor 5 Leiden mutation. Discussed with patient will order additional labs for further evaluation acquired hypercoagulable disorder today. Discussed will likely continue on least the prophylactic dose of Eliquis lifelong due to separate occurrences of blood clots. Luci Barnes PA-C [address] , [place], [address], [place] [facility] [place] [...] Labs performed when patient was hospitalized at [facility] on May 26, 2023 with [...] today. 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 Since his debridement, he completed 6 weeks of intravenous daptomycin and 1 year of suppressive doxycycline. He is remained infection free. His stump is fully healed. No fever. No other issues. He is tolerating the doxycycline well. Randy Torres MD [address], [place], [address], [facility] & [place] 04/23/2024 09:31:22 04/28/2025 text/html ROS [...] issues tolerating the daptomycin. Randy Torres MD [address] [facility], [place], [address], [facility] - [facility] - [place] & [place] 04/28/2025 11:42:44
--- OUTSIDE RECORDS SUMMARY | 2025-05-05 08:01 | XMS_ITS | Continuity of Care Document ---
Author Organization [facility] Infectious Disease -105 Address [address] [facility] [address] [place] [address] Care Team Providers Care Ruby On Rails Developer Name Role Phone SYBIL WILLIAM Primary Care Provider [phone] Assessment No assessment recorded. Plan of Treatment [...] Time Methicillin resistant Staphylococ cus aureus infection [id number] Active 2023 Amy jaramillo RI Daja [facility] & [place] 4 10:16:00 High risk medication monitoring indicated [id number] Active 2023 Amy jaramillo RI Daja [facility] & [place] 4 10:16:36 Problem Notes None recorded. Procedures Surgical History Date Name Laterality Status Provider Name and Address Organization Details Recorded Time 03/26/20 24 Venipuncture cancelled Luci Ag PA-C [address] , [place], [address], [facility] & [place] 03/18/2024 14:56:10 10/24/19 24 Venipuncture completed Luci Ag PA-C [address] [facility], [place], [address], [facility] & [place] 10/23/2023 10:53:19 07/25/19 24 [facility] [place] 07/25/2023 14:41:20 amputation of lower limb completed Sarah Hendersonarboles YVON [facility] & [place] 07/25/2023 13:57:05 Imaging Results None recorded. Procedure Notes None recorded. Medical Equipment None Reported. Allergies Allergen ID Allergen Name Allergen Category Reaction Reaction Severity Criticality Documentation Date Start Date Code Code System Note Provider Name and Address Organization Details Recorded Time 320987 cefdinir medicatio n Not available Not available Not available 06/02/2023 89149 RxNorm Isabel Kay [facility] & [place] 10:06:00 Medications Name Sig Start Date Stop [...] active Not Available Not Available Not Available [facility] 10 billion cell-200 mg sprinkle capsule [...] % 94 % 98.8 [degF] 41.7 kg/m2 952573. 12 g 140/96 mm[Hg] Amy Miles [facility] 11:13:21 Social History Question Answer Notes LastModified by Organizat ion Details LastModified Time Tobacco Smoking Status Never Smoker Isabel Kay [facility] 06/02/2023 10:06:28 Do You Have An Advance Directive? No [email or web address] Information not available 04/28/2025 Are You Blind Or Do You Have Difficulty Seeing? No [email or web address] Information not available 04/28/2025 What Was The Date Of Your Most Recent Tobacco Screening? 04/20/2025 [email or web address] Information not available 04/28/2025 Are You Passively Exposed To Smoke? No Information not available 04/28/2025 Sex: Unknown Functional Status Question Answer Note LastModified by Organizat ion Details LastModified Time Do you use any illicit or recreational drugs? No [email or web address] Information not available 07/25/2023 What is your level of alcohol consumption? None [email or web address] Information not available 04/28/2025 Mental Status None recorded. Family History Nothing Reported. Medical History Condition Response Clotting Disorder Y Back Problems Y Hypertension Y Immunizations Vaccine Type Date Status Note Provider Nam e and Address Organization Details Recorded Time Td (adult), 2 Lf tetanus toxoid, preservative free, adsorbed 6 completed YVON Brooks - [facility] & [place] 07/25/2023 13:54:15 Past Encounters Encounter ID Performer Location Encounter Start Date Encounter Closed Date Diagnosis/Indication Diagnosis SNOMED-CT Code Diagnosis ICD10 Code Diagnosis IMO Codes Diagnosis Note [id number] Randy Torres MD [facility] Infectiou s Disease -[address] [facility] [address] 04/28/2025 11:00:57 04/28/2025 11:33:23 Osteomyelitis 73865130 M86.9 989989 This patient has a recurrentc hronic osteomyeli [...] week. Methicilli n resistant Staphylococcus aureus infection 914291122 B95.62 1250113 As above Health Concerns Section Related Observation LastModified by Organization Detai ls LastModified Time None Recorded Concern Status LastModified by Organization Details LastModified Time None Recorded Payers Encounter Date Sequence Insurance Name Policy Number Policy Brantley Covered Member ID Brantley Member ID Guarantor Name 04/28/2025 2 MEDICAID[facility] CHO[facility] - FFS/TRADITIONA L Won Dennis [id number] Won Dennis 04/28/2025 3 [employer] [facility] (MEDICAID REPLACEMENT - HMO) Won Dennis [id number] Won Dennis Notes Date Note Type Note [...] issues tolerating the daptomycin. Randy Torres MD [address] [facility], [place], [address], [facility] [place] [facility] [place] & [place] 04/28/2025 11:42:44
--- OUTSIDE RECORDS SUMMARY | 2025-05-05 08:01 | XMS_ITS | Patient Health Record ---
Author Organization [facility] Address [address] [facility] [address] YVON Sykes [id number] Care Team Providers Care Tax Expert Name Role Phone Zeeshan Salazar Primary Care [...] W/U Status Risk Notes Problem Essential hypertension (08721897) HTN [Hypertension] (401.9) Active confirmed appears resolved Problem Hypothyroidism (66029036) Hypothyroidism NOS (244.9) Active confirmed Problem Hyperlipidemia (15331258) Hyperlipidemia (272.4) Active confirmed Problem Constipation (77412408) Constipation, unspecified constipation type (K59.00) Active confirmed Problem History of pulmonary embolism on long-term anticoagulation therapy (65113278810672858 ) Hx pulmonary embolism (Z86.711) Active confirmed Problem Long-term current use of anticoagulant (819397699) Current use of die presser anticoagulation (Z79.01) Active confirmed Problem Adjustment disorder with anxious mood (37261160) Adjustment disorder with anxious mood (F43.22) Active confirmed Problem History of pulmonary embolus (946773150) History of pulmonary embolus (PE) (Z86.711) Active confirmed Problem Methicillin resistant Staphylococcus aureus infection (disorder) (659553082) Infection of wound due to methicillin resistant Staphylococcus aureus (MRSA) (A49.02) Active confirmed Problem Arthritis of knee (760159698) Arthritis of knee (M17.10) Active confirmed Problem Amputated below knee (229604387) Status post below knee amputation of right lower extremity (Z89.511) Active confirmed Problem Gastroesophageal reflux disease (538133664) Gastroesophageal reflux disease, unspecified whether esophagitis present [...]
--- OUTSIDE RECORDS SUMMARY | 2025-05-05 08:03 | XMS_ITS | Clinical Summary ---
Author Organization [facility] Address [address] [place] [address] Care Team Providers Care Commutator Presser Name Role Phone Provider, No Known Primary [...] Discontinue d(Stop Taking at Discharge) Lactobacillus- Inulin ([facility]) capsule Take 200 mg by mouth [...] Description 04/08/2025 3:34 PM EDT Anesthesia [place] [facility] [place] [place] [address] [place] [phone] Ulises Hoffman MD Wells, Jeremy B., MD 04/08/2025 2:45 PM EDT - 04/08/2025 4:04 PM EDT Surgery [facility] OR [address] [place] [address] Sushil Dean Jr., MD LEG DEBRIDEMENT AND IRRIGATION 04/07/2025 8:36 PM EDT Anesthesia Event [facility] OR [address] [place] [address] Luci Alonso DO 04/07/2025 6:00 PM EDT - 04/07/2025 6:52 PM EDT Surgery [facility] OR [address] [place] [address] Sushil Dean Jr., MD LEG DEBRIDEMENT, IRRIGATION 04/04/2025 4:10 PM EDT - 04/11/2025 1:58 PM EDT Hospital Encounter [facility] [address]G [address] [place] [address] Mario Crowley DO Anderson, Laurie, [...] drink = 0.6 oz pur e alcohol) [facility] Utilities Answer Date Recorded In the past 12 months has [employer], gas, oil, or water [employer] threatened to shut off services in your [...] this topic Medical Devices Implanted Type Area Molder Foam Rubber Device Identifier Shelf Expiration Date Model / Serial / Lot Dev Wnd/Cls Contrl Tiss Stratafix Spiral Pls Pds Ct1 0 22cm - [id number] Implanted:Qty: 1 on 04/08/2025 by Sushil Dean Jr., MD at [facility] Implant Right: Leg [employer] 12/07/2025 [id number] / / [id number] Procedures Procedure Name Priority [...] resultswithin the time period is included. Pathologist [facility] WBC 7.87 3.40 - 10.80 10*3/mm3 04/11/2025 4:02 AM EDT [facility] RBC 4.70 4.14 - 5.80 10*6/mm3 04/11/2025 4:02 AM EDT [facility] Hemoglobin 12.8(L) 13.0 - 17.7 g/dL 04/11/2025 4:02 AM EDT [facility] Hematocrit 40.5 37.5 - 51.0 % 04/11/2025 4:02 AM EDT [facility] MCV 86.2 79.0 - 97.0 fL 04/11/2025 4:02 AM EDT [facility] MCH 27.2 26.6 - 33.0 pg 04/11/2025 4:02 AM EDT [facility] MCHC 31.6 31.5 - 35.7 g/dL 04/11/2025 4:02 AM EDT [facility] RDW 12.9 12.3 - 15.4 % 04/11/2025 4:02 AM EDT [facility] RDW-SD 40.5 37.0 - 54.0 fl 04/11/2025 4:02 AM EDT [facility] MPV 9.2 6.0 - 12.0 fL 04/11/2025 4:02 AM EDT [facility] Platelets 267 140 - 450 10*3/mm3 04/11/2025 4:02 AM EDT [facility] Neutrophil % 59.5 42.7 - 76.0 % 04/11/2025 4:02 AM EDT [facility] Lymphocyte % 26.3 19.6 - 45.3 % 04/11/2025 4:02 AM EDT [facility] Monocyte % 9.3 5.0 - 12.0 % 04/11/2025 4:02 AM [facility] Eosinophil % 4.1 0.3 - 6.2 % 04/11/2025 4:02 AM EDT [facility] Basophil % 0.4 0.0 - 1.5 % 04/11[facility]25 [facility] Immature Grans % 0.4 0.0 - 0.5 % 04/11/2025 4:02 AM [facility] Neutrophils, Absolute 4.69 1.70 - 7.00 10*3/mm3 04/11/2025 4:02 AM [facility] Lymphocytes, Absolute 2.07 0.70 - 3.10 10*3/mm3 04/11/2025 4:02 AM [facility] Monocytes, Absolute 0.73 0.10 - 0.90 10*3/mm3 04/11/2025 4:02 AM [facility] Eosinophils, Absolute 0.32 0.00 - 0.40 10*3/mm3 04/11/2025 4:02 AM [facility] Basophils, Absolute 0.03 0.00 - 0.20 10*3/mm3 04/11/2025 4:02 AM [facility] Immature Grans, Absolute 0.03 0.00 - 0.05 10*3/mm3 04/11/2025 4:02 AM [facility] nRBC 0.0 0.0 - 0.2 /100 WBC 04/11/2025 4:02 AM [facility] Blood Venipuncture / Unknown 04/11/2025 3:40 AM EDT 04/11/2025 3:59 AM EDT Sushil Dean Jr., MD LAB BLOOD ORDERABLES Fi nal Result [facility]
[address] [place] [address], * (ABNORMAL) Comprehensive Metabolic Panel (04/11/2025 3:40 AM EDT) Only the most recent of2 resultswithin the time period is included. Glucose 108(H) 65 - 99 mg/dL 04/11/2025 4:19 AM EDT [facility] BUN 12.5 6.0 - 20.0 mg/dL 04/11/2025 4:19 AM EDT [facility] Creatinine 0.68(L) 0.76 - 1.27 mg/dL 04/11/2025 4:19 AM EDT [facility] Sodium 140 136 - 145 mmol/L 04/11/2025 4:19 AM EDT [facility] Potassium 3.8 3.5 - 5.2 mmol/L 04/11/2025 4:19 AM EDT [facility] Chloride 105 98 - 107 mmol/L 04/11/2025 4:19 AM EDT [facility] CO2 28.2 22.0 - 29.0 mmol/L 04/11/2025 4:19 AM EDT [facility] Calcium 8.2(L) 8.6 - 10.5 mg/dL 04/11/2025 4:19 AM EDT [facility] Total Protein 6.1 6.0 - 8.5 g/dL 04/11/2025 4:19 AM EDT [facility] Albumin 3.1(L) 3.5 - 5.2 g/dL 04/11/2025 4:19 AM EDT [facility] ALT (SGPT) 52(H) 1 - 41 U/L 04/11/2025 4:19 AM EDT [facility] AST (SGOT) 40 1 - 40 U/L 04/11/2025 4:19 AM EDT [facility] Alkaline Phosphatase 99 39 - 117 U/L 04/11/2025 4:19 AM EDT [facility] Total Bilirubin 0.2 0.0 - 1.2 mg/dL 04/11/2025 4:19 AM EDT [facility] Globulin 3.0 gm/dL 04/11/2025 4:19 AM EDT [facility] Comment:Calculated Result A/G Ratio 1.0 g/dL 04/11/2025 4:19 AM EDT [facility] BUN/Creatinine Ratio 18.4 7.0 - 25.0 04/11/2025 4:19 AM EDT [facility] Anion Gap 6.8 5.0 - 15.0 mmol/L 04/11/2025 4:19 AM EDT [facility] eGFR 117.5 >60.0 mL/min/1.7 3 [...] race as a factor us Rosario Hill APPLIANCE SERVICE TECHNICIAN LAB BLOOD ORDERABLES Final Result [facility]
[address] [id number], * Heparin Anti-Xa (04/10/2025 3:46 AM EDT) Only the most recent of13 resultswithin the time period is included. Heparin Anti-Xa (UFH) 0.35 0.30 - 0.70 IU/ml 04/10/2025 4:23 AM EDT [facility] Blood Venipuncture / Unknown 04/10/2025 3:46 AM EDT 04/10/2025 3:53 AM EDT Larisa Hamilton [facility] LAB BLOOD ORDERABLES Final R esult [facility]
[address] [place] [address], * (ABNORMAL) Basic Metabolic Panel (04/10/2025 3:46 AM EDT) Only the most recent of6 resultswithin the time period is included. [facility] Glucose 125(H) 65 - 99 mg/dL 04/10/2025 [...] Resul t [facility]
[address] [place] [address], * Wound Culture - Swab, Leg, Right [...] ORDERABLES Final Result Performing Organization Address City/[facility]/ZIP Co de Phone Number [facility]
[address] [place] [address], [facility]
[address] [place] [address], [place] [phone] * Anaerobic Culture - Swab, Leg, Right [...] GENERAL ORDERABLES Final Result Performing Organization Address [facility] Co de Phone Number [facility]
[address] [place] [address], * Scan Slide (04/08/2025 8:41 AM EDT) [...] Final R esult Performing Organization Address City/[facility]/ZIP Co de Phone Number [facility]
[address] [place] [address], [place] [phone] * FL C Arm During Surgery (04/07/2025 [...] Final Result [facility]
[address] [place] [address], [facility]
[address] [place] [address], * BH AN ETT AIRWAY (04/07/2025 8:44 [...] [place] 04/07/2025 9:58 AM EDT Workstation ID: [id number] Narrative 04/07/2025 9:58 AM EDT MRI TIBIA [...] [place] 04/07/2025 9:58 AM EDT Workstation ID: [id number] Sushil Dean Jr., MD IMG MRI ORDERABLES Mary Beth l Result * Potassium (04/06/2025 7:16 PM EDT) Potassium 4.0 3.5 - 5.2 mmol/L 04/06/2025 7:53 PM EDT [facility] Blood Venipuncture / Unknown 04/06/2025 7:16 PM EDT 04/06/2025 7:35 PM EDT Jason Álvarez DO LAB BLOOD ORDERABLES Final Resul t Performing Organization Address City/[facility]/ZIP Co de Phone Number [facility]
[address] [place] [address], * CK (04/05/2025 12:15 PM EDT) Creatine Kinase 140 20 - 200 U/L 04/05/2025 1:31 PM EDT [facility] Blood Venipuncture / Unknown 04/05/2025 12:15 PM EDT 04/05/2025 1:03 PM EDT Carlton Mead MD LAB BLOOD ORDERABLES Final R esult Performing Organization Address City/[facility]/ZIP Co de Phone Number [facility]
[address] [place] [address], * (ABNORMAL) aPTT (04/05/2025 3:54 AM EDT) [...] 0.5 U/ml are 60 to 70 seconds. [place] LAB BLOOD ORDERABLES Final R esult Performing Organization Address City/[facility]/ZIP Co de Phone Number [facility]
[address] [place] [address], * (ABNORMAL) Protime-INR (04/05/2025 12:18 AM EDT) Pathologist [facility] Protime 15.9(H) 12.2 - 15.3 Seconds 04/05/2025 12:53 AM EDT [facility] INR 1.19(H) 0.89 - 1.12 04/05/2025 12:53 AM EDT [facility] Blood Venipuncture / Unknown 04/05/2025 12:18 AM EDT 04/05/2025 12:37 AM EDT Neumitra PharmD LAB BLOOD ORDERABLES Final R esult Performing Organization Address City/[facility]/ZIP Co de Phone Number [facility]
[address] [place] [address], * POC Creatinine (04/04/2025 2:49 PM EDT) Pathologist [facility] Creatinine 1.10 0.60 - 1.30 mg/dL 04/07/2025 7:14 PM EDT [facility] Comment:Serial Number: [id number] [id number] Venous Blood 04/04/2025 2:49 PM EDT 04/07/2025 7:14 PM EDT Jason Álvarez DO POINT OF CARE TEST ORDERABLES Fi nal Result Performing Organization Address [facility] Co de Phone Number [facility]
[address] [place] [address], * (ABNORMAL) Sedimentation Rate (04/04/2025 2:47 PM EDT) Sed Rate 51(H) 0 - 15 mm/hr 04/04/2025 3:06 PM EDT [facility] Blood Venipuncture / Unknown 04/04/2025 2:47 PM EDT 04/04/2025 2:52 PM EDT Mario Crowley LAB BLOOD ORDERABLES Fin al Result Performing Organization Address [facility] de Phone Number [facility]
[address] [place] [address], * (ABNORMAL) C-reactive Protein (04/04/2025 2:47 PM EDT) C-Reactive Protein 8.57(H) 0.00 - 0.50 mg/dL 04/04/2025 3:26 PM EDT [facility] Blood Venipuncture / Unknown 04/04/2025 2:47 PM EDT 04/04/2025 2:52 PM EDT Mario Crowley DO LAB BLOOD ORDERABLES Fin al Result Performing Organization Address [facility] Co de Phone Number [facility]
[address] [place] [address], from Last 3 Months Additional Health Concerns [...] Of Support Discussed With: Patient Care Teams Commutator Presser Relationship Specialty Start Date End Date Provider, No Known [facility] [place] [address] PCP - General 05/09/23
--- OUTSIDE RECORDS SUMMARY | 2025-05-05 08:03 | XMS_ITS | Encounter Summary ---
Author Organization Healthcare Address [address] [place] [address] Care Team Providers Care Belt Changer Name Role Phone Unavailable Primary Care Provider Unavailabl e Encounter Details Date Type Department Care Team (Late st Contact Info) Description 10/01/2022 Lab Requisition [facility] [address] [place] [address] Sushil Dean MD [address] [facility] [place] [address] Encounter for general adult medical examination without [...] has been identified using the FDA Approved HowGoodyper [place] System The organism value for this [...] PM EDT Refer to culture [id number] FOR SUSCEPTIBILITIES ON NEELIMA ALBICANS us Sushil Dean MD LAB MICROBIOLOGY - GENERAL O RDERABLES Final Result [facility] [address] [place] [address] documented in this encounter Visit Diagnoses Diagnosis Encounter for general adult medical examination without abnormal findings documented in this encounter
--- OUTSIDE RECORDS SUMMARY | 2025-05-05 08:03 | XMS_ITS | Encounter Summary ---
Author Organization Healthcare Address [address] [place] [address] Care Team Providers Care Service Aide Name Role Phone Unavailable Primary Care Provider Unavailabl e Encounter Details Date Type Department Care Team (Late st Contact Info) Description 07/20/2022 Lab Requisition [facility] [address] [place] [address] Sushil Dean MD [address] [place] [address] Encounter for general adult medical examination without [...]
--- OUTSIDE RECORDS SUMMARY | 2025-05-05 08:03 | XMS_ITS | Encounter Summary ---
Author Organization [facility] Address [address] [place] [address] Care Team Providers Care Stitchdown Toe Former Name Role Phone Unavailable Primary Care Provider Unavailabl e Encounter Details Date Type Department Care Team (Late st Contact Info) Description 10/03/2022 Lab Requisition [facility] Lab [address] [place] [address] Dalila Cox MD [address] [place], [place] [phone] Encounter for general adult medical examination without [...] Culture Neelima albicans(A) 10/05/2022 11:58 AM EDT [facility] Comment: This result was determined by MALDI tof Mass spectrometry. This assay was developed and its performance characteristics determined by [facility] as appropriate for clinical purposes. [...] Edited Result - Final [facility] [address] [place] [address] documented in this encounter Visit Diagnoses Diagnosis Encounter for general adult medical examination without abnormal findings documented in this encounter
--- OUTSIDE RECORDS SUMMARY | 2025-05-05 08:03 | XMS_ITS | Encounter Summary ---
Author Organization Healthcare Address [address] [place] [address] Care Team Providers Care Dog Hair Clipper Name Role Phone Unavailable Primary Care Provider Unavailabl e Encounter Details Date Type Department Care Team (Late st Contact Info) Description 10/19/2022 Lab Requisition [facility] [address] [place] [address] Sushil Dean MD [address] [place] [address] Encounter for general adult medical examination without [...] by MALDI tof mass spectrometry using the ISpeak database and is for research use only. The organism value for this result has been updated. These results have been appended to the previously preliminary verified report. Bone Specimen from bone / Unknown 10/19/2022 5:17 PM EDT 10/19/2022 9:49 PM EDT Sushil Dean MD LAB MICROBIOLOGY - GENERAL O RDERABLES Final Result Performing Organization Address [facility] de Phone Number [facility] [address] [place] [address] * Bone Culture and Gram Stain (10/19/2022 5:17 PM EDT) Culture No growth at day 4 2022 8:14 AM EDT [facility] Gram Stain Result Few Polymorphonuclear leukocytes 10/23/2022 8:14 AM EDT [facility] Gram Stain Result No organisms seen 10/23/2022 8:14 AM EDT [facility] Bone Specimen from bone / Unknown 10/19/2022 5:17 PM EDT 10/19/2022 9:49 PM EDT Sushil eDan MD LAB MICROBIOLOGY - GENERAL O RDERAADDI Final Result Performing Organization Address [facility] Phone Number [facility] [address] [place] [address] documented in this encounter Visit Diagnoses Diagnosis Encounter for general adult medical examination without abnormal findings documented in this encounter
--- OUTSIDE RECORDS SUMMARY | 2025-05-05 08:03 | XMS_ITS | Encounter Summary ---
Author Organization Healthcare Address [address] [place] [address] Care Team Providers Care Preparation Center Coordinator Name Role Phone Unavailable Primary Care Provider Unavailabl e Encounter Details Date Type Department Care Team (Late st Contact Info) Description 05/13/2023 Lab Requisition [facility] [address] [place] [address] Sushil Dean MD [address] [facility]. [address] [place] [address] Encounter for general adult medical examination without [...] Final Result Performing Organization Address [facility] Co de Phone Number [facility] [address] [place] [address] * Anaerobic Culture (05/13/2023 9:17 AM EDT) Culture No growth at day 4 05/20/2023 10:35 AM EST [facility] Bone 05/13/2023 9:17 AM EDT 05/13/2023 1:25 PM EDT us Sushil Dean MD LAB MICROBIOLOGY - GENERAL O RDERABLES Final Result Performing Organization Address [facility] de Phone Number [facility] [address] [place] [address] * Bone Culture and Gram Stain (05/13/2023 [...] Final Result Performing Organization Address [facility] de Phone Number [facility] [address] [place] [address] documented in this encounter Visit Diagnoses Diagnosis Encounter for general adult medical examination without abnormal findings documented in this encounter
--- OUTSIDE RECORDS SUMMARY | 2025-05-05 08:04 | XMS_ITS | Encounter Summary ---
Author Organization Healthcare Address [address] [place] [address] Care Team Providers Care Propulsion Systems Engineer Name Role Phone Unavailable Primary Care Provider Unavailabl e Encounter Details Date Type Department Care Team (Late st Contact Info) Description 07/20/2022 Lab Requisition [facility] [address] [place] [address] Sushil Dean MD [address] [place] [address] Encounter for general adult medical examination without [...] at day 4 07/27/2022 11:32 AM EST [facility] Bone Specimen from bone / Unknown 07/20/2022 1:36 PM EST 07/20/2022 5:52 PM EST us Sushil Dean MD LAB MICROBIOLOGY - GENERAL O RDERABLES Final Result Performing Organization Address City/[facility] Co de Phone Number [facility]ALTHCARE [facility] [address] [place] [address] * Bone Culture and Gram Stain (07/20/2022 1:36 PM EST) Culture No growth at day 4 2022 9:16 AM EST [facility] Gram Stain Result Rare Polymorphonuclear leukocytes 07/24/2022 9:16 AM EST [facility] Gram Stain Result No organisms seen 07/24/2022 9:16 AM EST [facility] Bone Specimen from bone / Unknown 07/20/2022 1:36 PM EST 07/20/2022 5:52 PM EST us Sushil Dean MD LAB MICROBIOLOGY - GENERAL O RDERABLES Final Result Performing Organization Address City/[facility] Co de Phone Number [facility] [address] [place] [address] documented in this encounter Visit Diagnoses Diagnosis Encounter for general adult medical examination without abnormal findings documented in this encounter
--- OUTSIDE RECORDS SUMMARY | 2025-05-05 08:04 | XMS_ITS | Encounter Summary ---
Author Organization Healthcare Address [address] [place] [address] Care Team Providers Care Woven Wood Shade Assembler Name Role Phone Unavailable Primary Care Provider Unavailabl e Encounter Details Date Type Department Care Team (Late st Contact Info) Description 08/12/2022 Lab Requisition [facility] [address] [place] [address] Sushil Dean MD [address] [place] [address] Encounter for general adult medical examination without [...] has been identified using the FDA Approved Singulexer CA System The organism value for this [...] O ERIC Final Result Performing Organization Address City/[facility] de Phone Number [facility]ALTHCARE [facility] [address] [place] [address] * Bone Culture and Gram Stain (08/12/2022 [...] O RDERABLES Final Result Performing Organization Address City/[facility] de Phone Number [facility] [address] [place] [address] documented in this encounter Visit Diagnoses Diagnosis Encounter for general adult medical examination without abnormal findings documented in this encounter
--- OUTSIDE RECORDS SUMMARY | 2025-05-05 08:04 | XMS_ITS | Clinical Summary ---
Author Organization Healthcare Address [address] [place] [address] Care Team Providers Care Carpenter Assembler Name Role Phone Unavailable Primary Care [...]
--- OUTSIDE RECORDS SUMMARY | 2025-05-05 08:04 | XMS_ITS | Encounter Summary ---
Author Organization [facility] Address [address] [place] [address] Care Team Providers Care Puncher And Fastener Name Role Phone Provider, No Known [...] 2:25 PM EDT Cherri Grimm RN * [place] Suicide Severity Rating Scale (Screener/Recent Self-Report) Question [...] documented as of this encounter Care Teams Puncher And Fastener Relationship Specialty Start Date End Date Provider, No Known [facility] [place] [address] PCP - General 05/09/23 documented as of this encounter
--- OUTSIDE RECORDS SUMMARY | 2025-05-05 08:04 | XMS_ITS | Encounter Summary ---
Author Organization Healthcare Address [address] [place] [address] Care Team Providers Care Inflatable Buildings Laminator Name Role Phone Unavailable Primary Care Provider Unavailabl e Encounter Details Date Type Department Care Team (Late st Contact Info) Description 05/17/2023 Lab Requisition [facility] [address] [place] [address] Sushil Dean MD [address] [facility] [address] [place] [address] Encounter for general adult medical examination without [...] Final Result Performing Organization Address City/[facility] Co de Phone Number [facility] [address] [place] [address] * Bone Culture and Gram Stain (05/17/2023 [...] Final Result Performing Organization Address [facility] Co de Phone Number [facility] [address] [place] [address] documented in this encounter Visit Diagnoses Diagnosis Encounter for general adult medical examination without abnormal findings documented in this encounter
[2025-05-05 08:21] LABS: Hematocrit 43.1 % (42.0-52.0); Hemoglobin 14.5 g/dL (14.1-18.0); Immature Granulocytes % 0.2 %; Mean Corpuscular HGB Conc 33.6 g/dL (31.8-35.4); Mean Corpuscular Hemoglobin 28.3 pg (27.0-31.2); Mean Corpuscular Volume 84.2 fl (80-94); Nucleated Red Blood Cells % 0 %; Platelet Count 200 K/mm3 (142-424); Red Blood Count 5.12 M/mm3 (4.60-6.20); Red Cell Distribution Width-SD 39.5 fL; White Blood Count 6.2 K/mm3 (4.8-10.8)
[2025-05-05] MEDS: SODIUM CHLORIDE 0.9% 10ML FLUSH SYRINGE 10 ML IV (08:25)
[2025-05-05] MEDS: DAPTOmycin 1,000 MG in 0.9 % SODIUM CHLORIDE 50 ML 100 MG IV (08:27)
[2025-05-05 08:37] LABS: Alanine Aminotransferase 58 U/L (12-78); Albumin Level 3.3 g/dl (3.5-5.0); Albumin/Globulin Ratio 0.9 (1.1-1.8); Alkaline Phosphatase 110 U/L (38-126); Anion Gap 9.9 mEq/L (5-15); Aspartate Amino Transferase 38 U/L (17-59); Bilirubin,Total 0.8 mg/dl (0.2-1.3); Blood Urea Nitrogen 14 mg/dl (9-20); Calcium 8.6 mg/dl (8.4-10.2); Carbon Dioxide 26 mmol/L (22.0-30.0); Chloride 104 mmol/L (98-107); Creatine Kinase 151 U/L (55-170); Creatinine,Serum 0.90 mg/dl (0.66-1.25); Estimated Glomerular Filt Rate 92 ml/min (>60); GFR (African American) 111 ML/MIN (>60); Globulin 3.6 g/dL (1.3-3.2); Glucose 119 mg/dl (74-100); Potassium 3.9 mmoL/L (3.5-5.1); Sodium 136 mmol/L (136-145); Total Protein,Serum 6.9 g/dl (6.3-8.2)
[2025-05-05 08:43] LABS: C-Reactive Protein 7.1 mg/L (0-4)
[2025-05-05 08:57] VITALS: BP 128/68; PULSE 69; RESP 14; TEMP 36.6; O2SAT 98
[2025-05-05 09:05] VITALS: BP 125/79; PULSE 67; RESP 14; TEMP 36.6; O2SAT 98
== END 2025-05-05 23:59 | disposition home or self-care (01) ==
LOC: INF 07:59
PROVIDERS: PCP Nurse Practitioner Family; Visit Provider Internal Medicine Infectious Disease
DX: A49.02 Methicillin resistant Staphylococcus aureus infection, unspecified site (principal); M86.9 Osteomyelitis, unspecified
CPT/HCPCS: 36592; 80053; 82550; 85025; 85651; 86140; 96365; J0878

== ENCOUNTER 2025-05-06 08:41 | Outpatient (CLI) | payer MEDICARE, SELFPAY ==
[2025-05-06 08:50] VITALS: BP 121/86; PULSE 64; RESP 20; TEMP 36.6; O2SAT 99
[2025-05-06] MEDS: SODIUM CHLORIDE 0.9% 10ML FLUSH SYRINGE 10 ML IV (08:50)
[2025-05-06] MEDS: DAPTOmycin 1,000 MG in 0.9 % SODIUM CHLORIDE 50 ML 100 MG IV (08:50)
[2025-05-06 09:40] VITALS: BP 126/88; PULSE 69; RESP 20; O2SAT 99
== END 2025-05-06 23:59 | disposition home or self-care (01) ==
LOC: INF 08:42
PROVIDERS: PCP Nurse Practitioner Family; Visit Provider Internal Medicine Infectious Disease
DX: M86.9 Osteomyelitis, unspecified (principal); B95.62 Methicillin resistant Staphylococcus aureus infection as the cause of diseases classified elsewhere
CPT/HCPCS: 96365; J0878

== ENCOUNTER 2025-05-07 08:42 | Outpatient (CLI) | payer MEDICARE, SELFPAY ==
--- OUTSIDE RECORDS SUMMARY | 2023-12-12 05:00 | XMS_ITS ---
Author Organization [place] Address 1210 [facility] 36 [facility] 2C [place] [id number] Care Team Providers Care Brake Repairer Bus Name Role Phone Zeeshan Salazar Primary Care Provider [phone] Macario Burkett [phone] REASON FOR VISIT 6 Month Check Up Encounters Encounter Location Date Provider Diagnosis [place] 1210 [facility] [address] [place] [phone] 12/12/2023 Macario Burkett Plan Of Treatment No Information Progress Notes * Won MEDRANO ZeeshanDOB: [birth year] (44 yo M)Acc No.[id number]:12/12/2023 Progress Notes Patient: Won SPANN Provider: Colleen Burkett M.D. :1980 A ge:43 Y S ex:Male Date:12/12/2023 Address:[address] [place] [address] [id number] Pcp:Zeeshan Salazar Subjective: * Chief Complaints: * 1 . 6 Month Check Up. * Medical History: Objective: * Vitals: Assessment: Plan: * Treatment: * Images: Billing Information: * Visit Code: * Procedure Codes: * Electronic signature of Micaela Burkett MD on 05/07/2025 at 09:10 AM EDT Sign off status: Pending * Provider: Colleen Burkett M.D. Date: 12/12/2023 Generated for Nany jorgensen/Elaine/Pro on: 1 09:10 AM EDT
--- OUTSIDE RECORDS SUMMARY | 2025-04-04 16:10 | XMS_ITS | Encounter Summary ---
Author Organization [facility] Address [address] [place] [address] Care Team Providers Care Shell Press Operator Name Role Phone Provider, No Known Primary Care Provider Unavail able Reason for Visit * Reason Comments Leg Swelling * Auth/Cert Specialty Diagnoses / Procedures Referred By Contlevy t Referred To Contact Diagnoses Right BKA infection Referral ID Status Reason Start Date Expiration Date Visits Re quested Visits Authorized [id number] 1 1 Encounter Details Date Type Department Care Team (Late st Contact Info) Description 04/04/2025 4:10 PM EDT - 04/11/2025 1:58 PM EDT Hospital Encounter [address] [place] [address] Mario Crowley, [address] [place] [address] Leonora Shepherd MD [address] [address] Jason Álvarez DO [address] [address] Jadyn Richardson DO [address] [address] Cellulitis of right lower extremity (Primary Dx); Below-knee amputation of right lower extremity, initial encounter; Right BKA infection Discharge Disposition: Home or Self Care Social History Tobacco Use Types Packs/Day Years Used Date Smoking Tobacco: Never Smokeless Tobacco: Never Tobacco Cessation:Counseling Given: Not Answered Alcohol Use Standard Drinks/Week Comments Not Currently 0 (1 standard drink = 0.6 oz pur e alcohol) [facility] Utilities Answer Date Recorded In the past 12 months has th e [employer], gas, oil, or water company threatened [...] or training? Not on file Preferred Language Congolese 04/07/2025 Sex and Gender Information Value Date [...] 2:25 PM EDT Cherri Grimm RN * [place] Suicide Severity Rating Scale (Screener/Recent Self-Report) Question [...] original note were not included. [facility] DISCHARGE SUMMARY Patient Name: Won [...] Date/Time Wound Culture - Swab, Leg, Right [[id number]] (Abnormal) (Susceptibility) Collected: 04/07/252106 Lab Status: Final [...] Units Date/Time FL C Arm During Surgery [[id number]] Resulted: 04/07/252137 Updated: 04/07/252137 Narrative: This procedure was auto-finalized with no dictation required. MRI Tibia Fibula Right With & Without Contrast [[id number]] Collected: 04/07/25 0938 Updated: 04/07/25 1001 Narrative: [...] Buenrostro 04/07/2025 9:58 AM EDT Workstation ID: [id number] MRI Tibia Fibula Right With & Without Contrast [[id number]] Collected: 04/04/252256 Updated: 04/04/252302 Narrative: MRI TIBIA [...] represent a small area of phlegmonous change (fcymss10 image 10) measuring approximately 1.6 cm which [...] MD 04/04/2025 11:00 PM EDT Workstation ID: [id number] Pending Labs Order Current Status Fungus Culture [...] FLOMAX 1 capsule, Nightly Stop These Medications [facility] Digestive [facility] capsule doxycycline 100 MG tablet [...] Male) Date of 1980 Social Security Number [id number] [place] [address] Christian Unknown Marital Status Unknown Admission Date 04/04/2025 Admission Type Emergency Admitting Provider Jadyn Richardson DO Attending Provider Jadyn Richardson DO Department, Room/Bed [address], S565/1 Discharge Date Discharge Disposition Discharge [...] Group [place] [id number] Payor Plan Address Payor Plan Phone Number Payor Plan Fax Number Effective Dates [employer] [address] [address] 08/10/2023 - None Entered [place] [address] Subscriber Name Subscriber Date Member ID WON DENNIS 1980 [id number] Emergency Contacts Board Operator (Rel.) Home Phone Work Phone Mobile Phone Avril Dennis (Spouse) -- -- [phone] LewRobert (Relative) -- -- [phone] [facility] [address] Patient: ROOM: [facility] Won Dennis [address] [place] [address] : 1980 SSN: [id number] Sex: M PCP: Provider, No Known Emergency Contact Information Name Relation Home Work Mobile Avril Dennis Spouse [phone] Other Contacts Name Relation Home Work Mobile Robert Hackett Relative [phone] INSURANCE PAYOR [employer]AN [employer] # SUBSCRIBER ID Primary: Secondary: MEDICARE [employer]ICA[place] [id number] Admitting Diagnosis: 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] Order Date: Apr 09, 2025 Case Management Coater Slate Consult (Order ID: [id number]) Diagnosis: Priority: Routine Expected Date: Expiration Date: Interval: Once Count: Comments: Outpatient orders: 1. Outpatient intravenous antibiotic therapy: Daptomycin 800 mg IV daily to be supplied by [facility] 2. Home health to perform [...] INFECTIOUS DISEASE Progress Note Won Dennis 1980 [id number] Date of Consult: 04/10/2025 Admission Date: 04/04/2025 [...] which prompted him to seek treatment at [facility]. He is known to Dr. [...] Jr., MD, 20 mg at 04/09/25906 heparin 63087 units/250 mL (100 units/mL) in 0.45 % [...] Units Date/Time FL C Arm During Surgery [[id number]] Resulted: 04/07/252137 Updated: 04/07/252137 Narrative: This procedure was auto-finalized with no dictation required. MRI Tibia Fibula Right With & Without Contrast [[id number]] Collected: 04/07/25 0938 Updated: 04/07/25 1001 Narrative: [...] Chitra 04/07/2025 9:58 AM EDT Workstation ID: [id number] Impression: Recurrent Right BKA stump abscess/cellulitis- this [...] with the pharmacist at [facility] today. I will sign off Outpatient orders: 1. Outpatient intravenous antibiotic therapy: Daptomycin 800 mg IV daily to be supplied by [facility] 2. Home health to perform weekly [...] Signed Expand All Collapse All [facility] PROGRESS NOTE Patient Name: Won [...] Date/Time Wound Culture - Swab, Leg, Right [[id number]] (Abnormal) (Susceptibility) Collected: 04/07/252106 Lab Status: Final [...] Row Name 04/06/25 1143 Sit-Stand Transfer Sit-Stand [place] (Transfers) modified independence -LM Comment, (Sit-Stand Transfer) Pt stood from recliner. Not holding onto walker, pt able to pull his pants up while balancing on his one leg. -LM Row Name 04/06/25 1143 Gait/Stairs (Locomotion) [place] Level (Gait) modified independence -LM Distance in [...] Nurse Physical Therapy Education Title: PT OT NETWORKING ADMINISTRATOR Therapies (Done) Topic: Physical Therapy (Done) Point: [...] Description Service Date Service Provider Modifiers Qty [id number] PT EVAL LOW COMPLEXITY 3 04/06/2025 Susan [...] mg Daily 04/05/2025 -- Route: Oral heparin 78071 units/250 mL (100 units/mL) in 0.45 % [...] -- Admin Instructions: Open Order & Select [facility] Electrolyte Replacement Protocol Algorithm to View [...] 22 [facility] [address], [address] [facility], [address] Please schedule at [phone] VONDA Garcia 04/11/25 08:32 EDT Cosigned by Sushil Dean Jr., MD at 04/19/2025 10:33 AM EDT Associated attestation - Sushil Dean Jr., MD - 04/19/2025 10:33 AM EDT I have reviewed this documentation and agree. * Rosario Hill APRN - 04/10/2025 1:24 PM EDT Images from the original note were not included. [facility] PROGRESS NOTE Patient Name: Won [...] Date/Time Wound Culture - Swab, Leg, Right [[id number]] (Abnormal) (Susceptibility) Collected: 04/07/252106 Lab Status: Final [...] mg Daily 04/05/2025 -- Route: Oral heparin 07109 units/250 mL (100 units/mL) in 0.45 % [...] -- Admin Instructions: Open Order & Select [facility] Electrolyte Replacement Protocol Algorithm to View [...] -- Admin Instructions: Open Order & Select [facility] Electrolyte Replacement Protocol Algorithm to View [...] -- Admin Instructions: Open Order & Select [facility] Electrolyte Replacement Protocol Algorithm to View [...] 22 [facility] [address], [address] [facility], [address] Please schedule at [phone] VONDA Garcia 04/10/25 09:01 EDT Cosigned by Sushil Dean Jr., MD at 04/19/2025 10:33 AM EDT Associated attestation - Sushil Dean Jr., MD - 04/19/2025 10:33 AM EDT I have reviewed this documentation and agree. * Carlton Mead MD - 04/10/2025 7:38 AM EDT Images from the original note were not included. INFECTIOUS DISEASE Progress Note Won Dennis 1980 [id number] Date of Consult: 04/10/2025 Admission Date: 04/04/2025 [...] which prompted him to seek treatment at [facility]. He is known to Dr. [...] Jr., MD, 20 mg at 04/09/25906 heparin 91646 units/250 mL (100 units/mL) in 0.45 % [...] vancomycin 2750 mg/500 mL 0.9% NS IVPB ([facility]) Ordering Provider: Mario Crowley, DO 20 [...] Units Date/Time FL C Arm During Surgery [[id number]] Resulted: 04/07/252137 Updated: 04/07/252137 Narrative: This procedure was auto-finalized with no dictation required. MRI Tibia Fibula Right With & Without Contrast [[id number]] Collected: 04/07/25 0938 Updated: 04/07/25 1001 Narrative: [...] Buenrostro 04/07/2025 9:58 AM EDT Workstation ID: [id number] Impression: Recurrent Right BKA stump abscess/cellulitis- this [...] with the pharmacist at [facility] today. I will sign off Outpatient orders: 1. Outpatient intravenous antibiotic therapy: Daptomycin 800 mg IV daily to be supplied by [facility] 2. Home health to perform weekly [...] MD 04/10/2025 07:38 EDT * Yaya Hamiltonn, [facility] - 04/10/2025 7:17 AM EDT Pharmacy to [...] original note were not included. [facility] PROGRESS NOTE Patient Name: Won [...] Date/Time Wound Culture - Swab, Leg, Right [[id number]] (Abnormal) Collected: 04/07/252106 Lab Status: Preliminary result [...] Jason DO Preeti 04/09/25 * Larisa Hamilton [facility] - 04/09/2025 11:36 AM EDT Pharmacy to [...] New start -- [phone] RN Mayr. Pt has Factor II mutation and needs [...] mg Daily 04/05/2025 -- Route: Oral heparin 28855 units/250 mL (100 units/mL) in 0.45 % [...] -- Admin Instructions: Open Order & Select [facility] Electrolyte Replacement Protocol Algorithm to View [...] -- Admin Instructions: Open Order & Select [facility] Electrolyte Replacement Protocol Algorithm to View [...] -- Admin Instructions: Open Order & Select [facility] Electrolyte Replacement Protocol Algorithm to View [...] radiographs [facility] [address], [address] [facility], [address] Please schedule at [phone] VONDA Garcia 04/09/25 09:18 EDT Cosigned by Sushil Dean Jr., MD at 04/19/2025 10:33 AM EDT Associated attestation - Sushil Dean Jr., MD - 04/19/2025 10:33 AM EDT I have reviewed this documentation and agree. * Carlton Mead MD - 04/09/2025 8:25 AM EDT Images from the original note were not included. INFECTIOUS DISEASE Progress Note Won Dennis 1980 [id number] Date of Consult: 04/09/2025 Admission Date: 04/04/2025 [...] which prompted him to seek treatment at [facility]. He is known to Dr. [...] Sushil Dean Jr., MD; Location: [facility] OR; Service: Orthopedics; Laterality: Right; PLACEMENT OF WOUND VAC Right 04/07/2025 Procedure: WOUND VACUUM ASSISTED CLOSURE; Surgeon: Sushil Dean Jr., MD; Location: [facility] OR; Service: Orthopedics; Laterality: Right; [...] MD, 20 mg at 04/08/25 0800 heparin 59856 units/250 mL (100 units/mL) in 0.45 % [...] Units Date/Time FL C Arm During Surgery [[id number]] Resulted: 04/07/252137 Updated: 04/07/252137 Narrative: This procedure was auto-finalized with no dictation required. MRI Tibia Fibula Right With & Without Contrast [[id number]] Collected: 04/07/2538 Updated: 04/07/25 1001 Narrative: MRI [...] Buenrostro 04/07/2025 9:58 AM EDT Workstation ID: [id number] Impression: Recurrent Right BKA stump abscess/cellulitis- this [...] mg IV daily to be supplied by [facility] 2. Home health to perform [...] original note were not included. [facility] PROGRESS NOTE Patient Name: Won [...] Buenrostro 04/07/2025 9:58 AM EDT Workstation ID: [id number] I have personally reviewed the therapy plans: [...] Jason Álvarez DO 04/08/25 * Larisa Hamilton [facility] - 04/08/2025 11:48 AM EDT Pharmacy to [...] -- Admin Instructions: Open Order & Select [facility] Electrolyte Replacement Protocol Algorithm to View [...] mg Daily 04/05/2025 -- Route: Oral heparin 96860 units/250 mL (100 units/mL) in 0.45 % [...] -- Admin Instructions: Open Order & Select [facility] Electrolyte Replacement Protocol Algorithm to View [...] -- Admin Instructions: Open Order & Select [facility] Electrolyte Replacement Protocol Algorithm to View [...] -- Admin Instructions: Open Order & Select [facility] Electrolyte Replacement Protocol Algorithm to View [...] INFECTIOUS DISEASE Progress Note Won Dennis 1980 [id number] Date of Consult: 04/08/2025 Admission Date: 04/04/2025 [...] which prompted him to seek treatment at [facility]. He is known to Dr. [...] Sushil Dean Jr., MD; Location: [facility] OR; Service: Orthopedics; Laterality: Right; PLACEMENT OF WOUND VAC Right 04/07/2025 Procedure: WOUND VACUUM ASSISTED CLOSURE; Surgeon: Sushil Dean Jr., MD; Location: [facility] OR; Service: Orthopedics; Laterality: Right; [...] Jr., MD, 20 mg at 04/07/25950 heparin 80589 units/250 mL (100 units/mL) in 0.45 % [...] Units Date/Time FL C Arm During Surgery [[id number]] Resulted: 04/07/252137 Updated: 04/07/252137 Narrative: This procedure was auto-finalized with no dictation required. MRI Tibia Fibula Right With & Without Contrast [[id number]] Collected: 04/07/2538 Updated: 04/07/25 1001 Narrative: MRI [...] Buenrostro 04/07/2025 9:58 AM EDT Workstation ID: [id number] Impression: 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 (Treated by ID in [place] Dr. Harris). Dr. Torres treated him with [...] original note were not included. [facility] PROGRESS NOTE Patient Name: Won [...] Buenrostro 04/07/2025 9:58 AM EDT Workstation ID: [id number] I have personally reviewed the therapy plans: [...] Jason Álvarez DO 04/07/25 * Larisa Hamilton [facility] - 04/07/2025 11:56 AM EDT Pharmacy to [...] INFECTIOUS DISEASE Progress Note Won Dennis 1980 [id number] Date of Consult: 04/07/2025 Admission Date: 04/04/2025 [...] which prompted him to seek treatment at [facility]. He is known to Dr. [...] Application, 1 Application, Topical, Q12H, Ayah Valentin, WORKPLACE RELATIONS ADVISER, 1 Application at 04/06/252101 DAPTOmycin (CUBICIN) 800 [...] Shepherd MD, 20 mg at 04/06/25899 heparin 37157 units/250 mL (100 units/mL) in 0.45 % NaCl infusion, 18 Units/kg/hr, Intravenous, Titrated, Cherri Beatty, [facility], Last Rate: 24.1 mL/hr at 04/07/258, 18 [...] Dose Heparin, , Not Applicable, Continuous PRN, nUa Perla, PharmD Phosphorus Replacement - Follow Nurse / BPA Driven Protocol, , Not Applicable, PRN, Joao Leonora, MD Potassium Replacement - Follow Nurse / BPA Driven Protocol, , Not Applicable, Joao PAZ Laurie, MD saccharomyces boulardii (FLORASTOR) capsule 250 mg, 250 mg, Oral, BID, Leonora Shepherd MD, 250 mgat 04/06/252100 sertraline (ZOLOFT) tablet 100 mg, 100 mg, Oral, Nightly, Leonroa Shepherd MD, 100 mg at 04/06/252101 [COMPLETED] [...] With & Without Contrast - In process [[id number]] Resulted: 04/07/25828 Updated: 04/07/25828 This result has not been signed. Information might be incomplete. 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 (Treated by ID in [place] Dr. Harris). Dr. Torres treated him with [...] mg Daily 04/05/2025 -- Route: Oral heparin 98249 units/250 mL (100 units/mL) in 0.45 % [...] -- Admin Instructions: Open Order & Select [facility] Electrolyte Replacement Protocol Algorithm to View [...] -- Admin Instructions: Open Order & Select [facility] Electrolyte Replacement Protocol Algorithm to View [...] MD 04/07/25 06:07 EDT * Cherri Beatty [facility] - 04/06/2025 1:47 PM EDT Pharmacy to [...] original note were not included. [facility] PROGRESS NOTE Patient Name: Won [...] MD 04/04/2025 11:00 PM EDT Workstation ID: [id number] I have personally reviewed the therapy plans: [...] mg Daily 04/05/2025 -- Route: Oral heparin 71115 units/250 mL (100 units/mL) in 0.45 % [...] -- Admin Instructions: Open Order & Select [facility] Electrolyte Replacement Protocol Algorithm to View [...] Dean Jr, MD 04/06/25 12:33 EDT * Carlotn Mead MD - 04/06/2025 7:51 AM EDT Images from the original note were not included. INFECTIOUS DISEASE follow up. Won Dennis 1980 [id number] Date of Consult: 04/06/2025 Admission Date: 04/04/2025 [...] which prompted him to seek treatment at [facility]. He is known to Dr. [...] Application, 1 Application, Topical, Q12H, Ayah Valentin, WORKPLACE RELATIONS ADVISER, 1 Application at 04/06/25 0859 DAPTOmycin (CUBICIN) [...] MD, 20 mg at 04/06/25 0900 heparin 50632 units/250 mL (100 units/mL) in 0.45 % NaCl infusion, 18 Units/kg/hr, Intravenous, Titrated, Cherri Beatty [facility], Last Rate: 24.1 mL/hr at 04/06/25 1420, [...] Tibia Fibula Right With & Without Contrast [[id number]] Collected: 04/04/252256 Updated: 04/04/252302 Narrative: MRI TIBIA [...] represent a small area of phlegmonous change (gyjwan90 image 10) measuring approximately 1.6 cm which [...] MD 04/04/2025 11:00 PM EDT Workstation ID: [id number] Impression: 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 (Treated by ID in [place] Dr. Harris). Dr. Torres treated him with [...] MD 04/06/2025 16:00 EDT * Cherri Beatty, [facility] - 04/05/2025 3:01 PM EDT Pharmacy to [...] original note were not included. [facility] PROGRESS NOTE Patient Name: Won [...] MD 04/04/2025 11:00 PM EDT Workstation ID: [id number] I have personally reviewed the therapy plans: [...] original note were not included. [facility] HISTORY AND PHYSICAL Patient Name: [...] MD 04/04/2025 11:00 PM EDT Workstation ID: [id number] Assessment & Plan Assessment & Plan Won [...] ORTHOPEDIC SURGERY [facility], [facility] [address] [address] Orthopedic Consult Patient: Won Dennis Date of Admission: 04/04/2025 4:10 PM Date of : 1980 Attending Physician: Jason Álvarez DO Consulting Physician: Sushil Dean Jr, MD Chief Complaint: 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 male admitted to [facility] with 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]. [...] was evaluated in the emergency department in [place], was discharged with instructions for follow-up. He [...] tablet by mouth Daily. 04/03/2025 Morning Lactobacillus-Inulin ([facility] nuPSYS) capsule Take 200 mg by mouth Daily. [...] MD 04/04/2025 11:00 PM EDT Workstation ID: [id number] Assessment: Right BKA infection 44-year-old male with [...] DISEASE CONSULT/INITIAL HOSPITAL VISIT Won Dennis 1980 [id number] Date of Consult: 04/05/2025 Admission Date: 04/04/2025 [...] which prompted him to seek treatment at [facility]. He is known to Dr. 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 (Treated by ID in [place] Dr. Harris). Dr. Torres treated him with [...] infection POSTOP DIAGNOSIS: Same. PROCEDURE: Right Right 92114: Secondary closure below-knee amputation SURGEON: Sushil Dean MD OPERATIVE TEAM: Paleologist: Susi Grullon RN Scrub Person: Mary Paredes Scrub Person Extra: Hortencia Toribio Other: Katt Gotti RN; Charis Neville RN ANESTHETIST: Anesthesiologist: Ulises Hoffman MD ENVIRONMENTAL REMEDIATION SPECIALIST: Stan Casillas CRNA Student Nurse Burnishing Machine Operator: Karol Albert SRNA ANESTHESIA: Choice ESTIMATED [...] CULTURE (Canceled) Sushil Dean Jr., MD 04/08/25 7147 Description: RIGHT LEG DEEP WOUND FOR CULTURE [...] [facility] [address] [address] OPERATIVE REPORT PATIENT NAME: Won Dennis DATE OF : 1980 PREOP DIAGNOSIS: Right Right below knee amputation stump infection POSTOP DIAGNOSIS: Same. PROCEDURE: Right Right 96540: Incision and drainage of surgical site infection 15290: Debridement of skin, subcutaneous tissue, muscle 17979: Wound vacuum-assisted closure SURGEON: Sushil Dean MD OPERATIVE TEAM: Paleologist: Anum Sanchez RN Scrub Person: Hortencia Toribio; Gerald Ivey SOLID CENTER WINDER: Anesthesiologist: Luci Alonso DO ANESTHESIA: General ESTIMATED [...] ago swellling of the area. seen at [facility] yesterday for CT and US, [...] this chart in the absence of a funding coordinator. No orders to display RADIOLOGY: [x] Radiologist's [...] 04/11/2025 1:30 PM EDT Continued Stay Note Jessamine Patient Name: Won Dennis Today's Date: 04/11/2025 Admit Date: 04/04/2025 Plan: Home with outpatient infusion. Discharge Plan Row Name 04/11/25 1155 Plan Plan Home with outpatient infusion. Final Discharge Disposition Code 01 - home or self-care Final Note Patient discharging today. He is discharging home with outpatient infusion at [facility]. He has an appointment with [facility] at 8:00 am tomorrow. They will do PICC line dressing changes. DEBRA has spoke with Dena at [facility] today multiple times to get setup [...] to get IV ABX at home with [facility]; however, Medicaid lapsed on 04/08. DEBRA was unaware until this morning that Medicaid has lapsed. Patient explained that he has Medicare A and B. CM spoke with KELLEE and given themhis Medicare number [id number], she sent it to Admission. DEBRA spoke with Kerri, with [facility], and explained that he had Medicare A and B. However, it will not cover home infusion. It will be $64.00 a day out of packet. Patients can go to the Infusion center at [facility], and it will cover the cost as an outpatient. He will need to go there every day for infusion. They will be able to do the patients' PICC line dressing changes and lab work. CM called Dena [facility] Outpatient infusion center they can accept patient and start him. He is known for their facility. The Facility will need to run it through his insurance first. CM faxed the orders over to [facility] at [phone]. CM will follow up with them tomorrow at [facility] to make sure they received the [...] with patient at bedside today. [facility]. Patient getting PICC line [...] note were not included. Discharge Planning Assessment Jessamine Patient Name: Won Dennis Today's Date: 04/07/2025 [...] with family Patient/Family Anticipated Services at Transition top case assemblerclinical product manager Anticipated family or friend will provide Discharge Needs Assessment Equipment Currently Used at Home glucometer;shower chair;pulse ox;bp cuff;prosthesis;crutches Equipment Needed After Discharge none Discharge Plan Row Name 04/07/25 1144 Plan Plan Home Patient/Family in Agreement with Plan yes Plan Comments CM spoke with patient at bedside today. Patient lives with and his [address] [facility]. 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 He has walker, cane, shower chair, and crutches. He requested a wheelchair for home. CM will order wheelchair through [employer]. He is not current with home health services. PCP is Dr. Jordan. Insurance is [facility] Medicaid [place]. Patient discharge plan is home with priavte transport. CM will follow for any discharge needs. Final Discharge Disposition Code 01 - home or self-care Continued Care and Services - Admitted Since 04/04/2025 No active coordination exists. Demographic Summary Row Name 04/07/25 1143 General Information Arrived From hospital Preferred Language Congolese Functional Status Row Name 04/07/25 1143 Functional [...] 3:4 0 PM EDT Right BKA infection [place] SEC ABDOMINAL WALL SUTURE EVISCERATION/DEHSN 04/08/2025 3:20 [...] CBC Auto Differential (04/11/2025 3:40 AM EDT) [facility] WBC 7.87 3.40 - 10.80 10*3/mm3 04/11/2025 4:02 AM EDT [facility] RBC 4.70 4.14 - 5.80 10*6/mm3 04/11/2025 4:02 AM EDT [facility] Hemoglobin 12.8(L) 13.0 - 17.7 g/dL 04/11/2025 4:02 AM EDT [facility] Hematocrit 40.5 37.5 - 51.0 % 04/11/2025 4:02 AM EDT [facility] MCV 86.2 79.0 - 97.0 fL 04/11/2025 4:02 AM EDT [facility] MCH 27.2 26.6 - 33.0 pg 04/11/2025 4:02 AM EDT [facility] MCHC 31.6 31.5 - 35.7 g/dL 04/11/2025 4:02 AM EDT [facility] RDW 12.9 12.3 - 15.4 % 04/11/2025 4:02 AM EDT [facility] RDW-SD 40.5 37.0 - 54.0 fl 04/11/2025 4:02 AM EDT [facility] MPV 9.2 6.0 - 12.0 fL 04/11/2025 4:02 AM EDT [facility] Platelets 267 140 - 450 10*3/mm3 04/11/2025 4:02 AM [facility] Neutrophil % 59.5 42.7 - 76.0 % 04/11/2025 4:02 AM [facility] Lymphocyte % 26.3 19.6 - 45.3 % 04/11/2025 4:02 AM [facility] Monocyte % 9.3 5.0 - 12.0 % 04/11/2025 4:02 AM [facility] Eosinophil % 4.1 0.3 - 6.2 % 04/11/2025 4:02 AM [facility] Basophil % 0.4 0.0 - 1.5 % 04/11/2025 4:02 AM [facility] Immature Grans % 0.4 0.0 - 0.5 % 04/11/2025 4:02 AM [facility] Neutrophils, Absolute 4.69 1.70 - 7.00 10*3/mm3 04/11/2025 4:02 AM [facility] Lymphocytes, Absolute 2.07 0.70 - 3.10 10*3/mm3 04/11/2025 4:02 AM [facility] Monocytes, Absolute 0.73 0.10 - 0.90 10*3/mm3 04/11/2025 4:02 AM [facility] Eosinophils, Absolute 0.32 0.00 - 0.40 10*3/mm3 04/11/2025 4:02 AM [facility] Basophils, Absolute 0.03 0.00 - 0.20 10*3/mm3 04/11/2025 4:02 AM [facility] Immature Grans, Absolute 0.03 0.00 - 0.05 10*3/mm3 04/11/2025 4:02 AM [facility] nRBC 0.0 0.0 - 0.2 /100 WBC 04/11/2025 4:02 AM [facility] Blood Venipuncture / Unknown 04/11/2025 3:40 AM EDT 04/11/2025 3:59 AM EDT us Sushil Dean Jr., MD LAB BLOOD ORDERABLES Fi nal Result [facility]
[address] [place] [address], * (ABNORMAL) Comprehensive Metabolic Panel (04/11/2025 3:40 AM EDT) Glucose 108(H) 65 - 99 mg/dL 04/11/2025 4:19 AM EDT [facility] BUN 12.5 6.0 - 20.0 mg/dL 04/11/2025 4:19 AM EDT [facility] Creatinine 0.68(L) 0.76 - 1.27 mg/dL 04/11/2025 4:19 AM EDT [facility] Sodium 140 136 - 145 mmol/L 04/11/2025 4:19 AM EDT [facility] Potassium 3.8 3.5 - 5.2 mmol/L 04/11/2025 4:19 AM EDT [facility] Chloride 105 98 - 107 mmol/L 04/11/2025 4:19 AM EDT [facility] CO2 28.2 22.0 - 29.0 mmol/L 04/11/2025 4:19 AM EDT [facility] Calcium 8.2(L) 8.6 - 10.5 mg/dL 04/11/2025 4:19 AM EDT [facility] Total Protein 6.1 6.0 - 8.5 g/dL 04/11/2025 4:19 AM EDT [facility] Albumin 3.1(L) 3.5 - 5.2 g/dL 04/11/2025 4:19 AM EDT [facility] ALT (SGPT) 52(H) 1 - 41 U/L 04/11/2025 4:19 AM EDT [facility] AST (SGOT) 40 1 - 40 U/L 04/11/2025 4:19 AM EDT [facility] Alkaline Phosphatase 99 39 - 117 U/L 04/11/2025 4:19 AM EDT [facility] Total Bilirubin 0.2 0.0 - 1.2 mg/dL 04/11/2025 4:19 AM EDT [facility] Globulin 3.0 gm/dL 04/11/2025 4:19 AM EDT [facility] Comment:Calculated Result A/G Ratio 1.0 g/dL 04/11/2025 4:19 AM EDT [facility] BUN/Creatinine Ratio 18.4 7.0 - 25.0 04/11/2025 4:19 AM EDT [facility] Anion Gap 6.8 5.0 - 15.0 mmol/L 04/11/2025 4:19 AM EDT [facility] eGFR 117.5 >60.0 mL/min/1.7 3 04/11/2025 4:19 AM EDT [facility] Blood Venipuncture / Unknown [...] Hill APRN LAB BLOOD ORDERABLES Final Result [facility]
[address] [place] [address], * (ABNORMAL) CBC Auto Differential (04/10/2025 3:46 AM EDT) [facility] WBC 9.60 3.40 - 10.80 10*3/mm3 04/10/2025 3:56 AM EDT [facility] RBC 4.67 4.14 - 5.80 10*6/mm3 04/10/2025 3:[facility] Hemoglobin 12.9(L) 13.0 - 17.7 g/dL 04/10/2025 3:56 AM EDT [facility] Hematocrit 40.1 37.5 - 51.0 % 04/10/2025 3:56 [facility] MCV 85.9 79.0 - 97.0 fL 04/10/2025 3:56 [facility] MCH 27.6 26.6 - 33.0 pg 04/10/2025 3:56 AM [facility] MCHC 32.2 31.5 - 35.7 g/dL 04/10/2025 3:56 [facility] RDW 12.9 12.3 - 15.4 % 04/10/2025 3:56 AM [facility] RDW-SD 40.5 37.0 - 54.0 fl 04/10/2025 3:56 AM [facility] MPV 9.5 6.0 - 12.0 fL 04/10/2025 3:56 AM [facility] Platelets 227 140 - 450 10*3/mm3 04/10/2025 3:56 AM EDT [facility] Neutrophil % 59.1 42.7 - 76.0 % 04/10/2025 3:56 [facility] Lymphocyte % 29.0 19.6 - 45.3 % 04/10/2025 3:56 [facility] Monocyte % 8.1 5.0 - 12.0 % 04/10/2025 3:56 [facility] Eosinophil % 3.2 0.3 - 6.2 % 04/10/2025 3:56 AM EDT [facility] Basophil % 0.4 0.0 - 1.5 % 04/10/2025 3:56 AM EDT [facility] Immature Grans % 0.2 0.0 - 0.5 % 04/10/2025 3:56 AM EDT [facility] Neutrophils, Absolute 5.67 1.70 - 7.00 10*3/mm3 04/10/2025 3:56 AM EDT [facility] Lymphocytes, Absolute 2.78 0.70 - 3.10 10*3/mm3 04/10/2025 3:56 AM EDT [facility] Monocytes, Absolute 0.78 0.10 - 0.90 10*3/mm3 04/10/2025 3:56 AM EDT [facility] Eosinophils, Absolute 0.31 0.00 - 0.40 10*3/mm3 04/10/2025 3:56 AM EDT [facility] Basophils, Absolute 0.04 0.00 - 0.20 10*3/mm3 04/10/2025 3:56 AM EDT [facility] Immature Grans, Absolute 0.02 0.00 - 0.05 10*3/mm3 04/10/2025 3:56 AM EDT [facility] nRBC 0.0 0.0 - 0.2 /100 WBC 04/10/2025 3:56 AM EDT [facility] Blood Venipuncture / Unknown 04/10/2025 3:46 AM EDT 04/10/2025 3:53 AM EDT Jason Álvarez DO LAB BLOOD ORDERABLES Final Resul t [facility]
[address] [place] [address], * (ABNORMAL) Basic Metabolic Panel (04/10/2025 3:46 AM EDT) [facility] Glucose 125(H) 65 - 99 mg/dL 04/10/2025 4:20 AM EDT [facility] BUN 15.9 6.0 - 20.0 mg/dL 04/10/2025 4:20 AM T [facility] Creatinine 0.77 0.76 - 1.27 mg/dL 04/10/2025 4:20 AM T [facility] Sodium 137 136 - 145 mmol/L 04/10/2025 4:20 AM [facility] Potassium 3.9 3.5 - 5.2 mmol/L 04/10/2025 4:20 AM EDT [facility] Chloride 102 98 - 107 mmol/L 04/10/2025 4:20 AM EDT [facility] CO2 26.9 22.0 - 29.0 mmol/L 04/10/2025 4:20 AM [facility] Calcium 7.9(L) 8.6 - 10.5 mg/dL 04/10/2025 4:20 AM [facility] BUN/Creatinine Ratio 20.6 7.0 - 25.0 04/10/2025 4:20 AM [facility] Anion Gap 8.1 5.0 - 15.0 mmol/L 04/10/2025 4:20 AM [facility] eGFR 113.2 >60.0 mL/min/1.7 3 04/10/2025 4:20 AM [facility] Blood Venipuncture / Unknown 04/10/2025 [...] DO LAB BLOOD ORDERABLES Final Resul t [facility]
[address] [place] [address], * Heparin Anti-Xa (04/10/2025 3:46 AM EDT) Heparin Anti-Xa (UFH) 0.35 0.30 - 0.70 IU/ml 04/10/2025 4:23 AM EDT [facility] Blood Venipuncture / Unknown 04/10/2025 3:46 AM EDT 04/10/2025 3:53 AM EDT Larisa [facility] LAB BLOOD ORDERABLES Final R esult Performing Organization Address City/[facility]/ZIP Co de Phone Number [facility]
[address] [place] [address], * Heparin Anti-Xa (04/09/2025 10:05 AM EDT) Heparin Anti-Xa (UFH) 0.36 0.30 - 0.70 IU/ml 04/09/2025 11:12 AM EDT [facility] Blood Venipuncture / Unknown 04/09/2025 10:05 AM EDT 04/09/2025 10:47 AM EDT [facility] LAB BLOOD ORDERABLES Final R esult [facility]
[address] [place] [address], * (ABNORMAL) CBC Auto Differential (04/09/2025 4:18 AM EDT) WBC 11.00(H) 3.40 - 10.80 10*3/mm3 04/09/2025 4:50 AM [facility] RBC 4.70 4.14 - 5.80 10*6/mm3 04/09/2025 4:50 AM EDT [facility] Hemoglobin 13.0 13.0 - 17.7 g/dL 04/09/2025 4:50 AM EDT [facility] Hematocrit 40.4 37.5 - 51.0 % 04/09/2025 4:50 AM EDT [facility] MCV 86.0 79.0 - 97.0 fL 04/09/2025 4:50 AM EDT [facility] MCH 27.7 26.6 - 33.0 pg 04/09/2025 4:50 [facility] MCHC 32.2 31.5 - 35.7 g/dL 04/09/2025 4:50 AM [facility] RDW 12.8 12.3 - 15.4 % 04/09/2025 4:50 AM [facility] RDW-SD 39.9 37.0 - 54.0 fl 04/09/2025 4:50 AM [facility] MPV 10.0 6.0 - 12.0 fL 04/09/2025 4:50 AM [facility] Platelets 211 140 - 450 10*3/mm3 04/09/2025 4:50 AM [facility] Neutrophil % 74.8 42.7 - 76.0 % 04/09/2025 4:50 AM EDT [facility] Lymphocyte % 15.4(L) 19.6 - 45.3 % 04/09/2025 4:50 AM EDT [facility] Monocyte % 8.5 5.0 - 12.0 % 04/09/2025 4:50 AM EDT [facility] Eosinophil % 0.6 0.3 - 6.2 % 04/09/2025 4:50 [facility] Basophil % 0.4 0.0 - 1.5 % 04/09/2025 4:50 AM EDT [facility] Immature Grans % 0.3 0.0 - 0.5 % 04/09/2025 4:50 AM EDT [facility] Neutrophils, Absolute 8.23(H) 1.70 - 7.00 10*3/mm3 04/09/2025 4:50 AM EDT [facility] Lymphocytes, Absolute 1.69 0.70 - 3.10 10*3/mm3 04/09/2025 4:50 AM EDT [facility] Monocytes, Absolute 0.94(H) 0.10 - 0.90 10*3/mm3 04/09/2025 4:50 AM EDT [facility] Eosinophils, Absolute 0.07 0.00 - 0.40 10*3/mm3 04/09/2025 4:50 AM EDT [facility] Basophils, Absolute 0.04 0.00 - 0.20 10*3/mm3 04/09/2025 4:50 AM EDT [facility] Immature Grans, Absolute 0.03 0.00 - 0.05 10*3/mm3 04/09/2025 4:50 AM EDT [facility] nRBC 0.0 0.0 - 0.2 /100 WBC 04/09/2025 4:50 AM EDT [facility] Blood Venipuncture / Unknown 04/09/2025 4:18 AM EDT 04/09/2025 4:31 AM EDT Sushil Dean Jr., MD LAB BLOOD ORDERABLES Fi nal Result [facility]
[address] [place] [address], * Heparin Anti-Xa (04/09/2025 4:18 AM EDT) Heparin Anti-Xa (UFH) 0.41 0.30 - 0.70 IU/ml 04/09/2025 4:53 AM EDT [facility] Blood Venipuncture / Unknown 04/09/2025 4:18 AM EDT 04/09/2025 4:31 AM EDT Una Wheeleroy PharmD LAB BLOOD ORDERABLES Final R esult [facility]
[address] [place] [address], * (ABNORMAL) Basic Metabolic Panel (04/09/2025 4:18 AM EDT) Pathologist [facility] Glucose 147(H) 65 - 99 mg/dL 04/09/2025 5:33 AM EDT [facility] BUN 23.0(H) 6.0 - 20.0 mg/dL 04/09/2025 5:33 AM EDT [facility] Creatinine 1.15 0.76 - 1.27 mg/dL 04/09/2025 5:33 AM EDT [facility] Sodium 135(L) 136 - 145 mmol/L 04/09/2025 5:33 AM EDT [facility] Potassium 4.2 3.5 - 5.2 mmol/L 04/09/2025 5:33 AM EDT [facility] Chloride 100 98 - 107 mmol/L 04/09/2025 5:33 AM EDT [facility] CO2 26.0 22.0 - 29.0 mmol/L 04/09/2025 5:33 AM EDT [facility] Calcium 8.2(L) 8.6 - 10.5 mg/dL 04/09/2025 5:33 AM EDT [facility] BUN/Creatinine Ratio 20.0 7.0 - 25.0 04/09/2025 5:33 AM EDT [facility] Anion Gap 9.0 5.0 - 15.0 mmol/L 04/09/2025 5:33 AM EDT [facility] eGFR 80.5 >60.0 mL/min/1.7 3 04/09/2025 5:33 AM EDT [facility] Blood Venipuncture / Unknown 04/09/2025 4:18 AM EDT 04/09/2025 4:29 AM EDT Narrative [facility] - 04/09/2025 5:33 AM [...] nal Result Performing Organization Address [facility] Co de Phone Number [facility]
[address] [place] [address], * Wound Culture - Swab, Leg, Right (04/08/2025 3:40 PM EDT) Wound Culture No growth at 3 days ALIZA 04/11/2025 10:40 AM EDT [facility] Gram Stain Few (2+) WBCs seen 04/11/2025 10:40 AM EDT [facility] Gram Stain No organisms seen 04/11/2025 10:40 AM EDT [facility] Swab Structure of right lower limb / Unknown 04/08/2025 3:40 PM EDT 04/08/2025 8:05 PM EDT Sushil Dean Jr., MD MICROBIOLOGY - GENERAL ORDERABLES Final Result Performing Organization Address City/[facility]/ZIP Co de Phone Number [facility]
[address] [place] [phone], [facility]
[address] [place] [address], * Anaerobic Culture - Swab, Leg, Right (04/08/2025 3:40 PM EDT) Pathologist [facility] Anaerobic Culture No anaerobes isolated at 5 days ALIZA 04/13/2025 7:24 AM EDT [facility] Swab Structure of right lower limb / Unknown 04/08/2025 3:40 PM EDT 04/08/2025 8:05 PM EDT Sushil Dean Jr., MD MICROBIOLOGY - GENERAL ORDERABLES Final Result Performing Organization Address City/[facility] Co de Phone Number [facility]
[address] [place] [address], [place] [phone] * Scan Slide (04/08/2025 8:41 AM EDT) Pathologist [facility] RBC Morphology Normal Normal 04/08/2025 11:02 AM EDT [facility] WBC Morphology Normal Normal 04/08/2025 11:02 AM EDT [facility] Platelet Estimate Adequate Normal 04/08/2025 11:02 AM EDT [facility] Clumped Platelets Present None Seen 04/08/2025 11:02 AM EDT [facility] Blood Venipuncture / Unknown 04/08/2025 8:41 AM EDT 04/08/2025 9:10 AM EDT Una LundbergD LAB BLOOD ORDERABLES Final R esult Performing Organization Address City/[facility]/ZIP Co de Phone Number [facility]
[address] [place] [address], [place] [phone] * (ABNORMAL) CBC Auto Differential (04/08/2025 8:41 AM EDT) Pathologist [facility] WBC 10.07 3.40 - 10.80 10*3/mm3 04/08/2025 11:02 AM EDT [facility] RBC 5.01 4.14 - 5.80 10*6/mm3 04/08/2025 11:02 AM EDT [facility] Hemoglobin 14.0 13.0 - 17.7 g/dL 04/08/2025 11:02 AM [facility] Hematocrit 42.7 37.5 - 51.0 % 04/08/2025 11:02 AM [facility] MCV 85.2 79.0 - 97.0 fL 04/08/2025 11:02 AM [facility] MCH 27.9 26.6 - 33.0 pg 04/08/2025 11:02 AM [facility] MCHC 32.8 31.5 - 35.7 g/dL 04/08/2025 11:02 AM [facility] RDW 12.6 12.3 - 15.4 % 04/08/2025 11:02 AM [facility] RDW-SD 38.9 37.0 - 54.0 fl 04/08/2025 11:02 AM [facility] MPV 11.0 6.0 - 12.0 fL 04/08/2025 11:02 AM [facility] Platelets 118(L) 140 - 450 10*3/mm3 04/08/2025 11:02 AM [facility] Neutrophil % 85.1(H) 42.7 - 76.0 % 04/08/2025 11:02 AM [facility] Lymphocyte % 9.3(L) 19.6 - 45.3 % 04/08/2025 11:02 AM [facility] Monocyte % 4.6(L) 5.0 - 12.0 % 04/08/2025 11:02 AM [facility] Eosinophil % 0.3 0.3 - 6.2 % 04/08/2025 11:02 AM [facility] Basophil % 0.2 0.0 - 1.5 % 04/08/2025 11:02 AM [facility] Immature Grans % 0.5 0.0 - 0.5 % 04/08/2025 11:02 AM [facility] Neutrophils, Absolute 8.57(H) 1.70 - 7.00 10*3/mm3 04/08/2025 11:02 AM EDT [facility] Lymphocytes, Absolute 0.94 0.70 - 3.10 10*3/mm3 04/08/2025 11:02 AM EDT [facility] Monocytes, Absolute 0.46 0.10 - 0.90 10*3/mm3 04/08/2025 11:02 AM EDT [facility] Eosinophils, Absolute 0.03 0.00 - 0.40 10*3/mm3 04/08/2025 11:02 AM EDT [facility] Basophils, Absolute 0.02 0.00 - 0.20 10*3/mm3 04/08/2025 11:02 AM EDT [facility] Immature Grans, Absolute 0.05 0.00 - 0.05 10*3/mm3 04/08/2025 11:02 AM EDT [facility] nRBC 0.0 0.0 - 0.2 /100 WBC 04/08/2025 11:02 AM EDT [facility] Blood Venipuncture / Unknown 04/08/2025 8:41 AM EDT 04/08/2025 9:10 AM EDT Una Perla PharmD LAB BLOOD ORDERABLES Final R esult [facility]
[address] [place] [address], * (ABNORMAL) Basic Metabolic Panel (04/08/2025 8:41 AM EDT) Glucose 125(H) 65 - 99 mg/dL 04/08/2025 9:51 AM EDT [facility] BUN 13.2 6.0 - 20.0 mg/dL 04/08/2025 9:51 AM EDT [facility] Creatinine 0.69(L) 0.76 - 1.27 mg/dL 04/08/2025 9:51 AM EDT [facility] Sodium 136 136 - 145 mmol/L 04/08/2025 9:51 AM EDT [facility] Potassium 4.6 3.5 - 5.2 mmol/L 04/08/2025 9:51 AM EDT [facility] Chloride 102 98 - 107 mmol/L 04/08/2025 9:51 AM EDT [facility] CO2 23.5 22.0 - 29.0 mmol/L 04/08/2025 9:51 AM EDT [facility] Calcium 8.4(L) 8.6 - 10.5 mg/dL 04/08/2025 9:51 AM EDT [facility] BUN/Creatinine Ratio 19.1 7.0 - 25.0 04/08/2025 9:51 AM EDT [facility] Anion Gap 10.5 5.0 - 15.0 mmol/L 04/08/2025 9:51 AM EDT [facility] eGFR 117.0 >60.0 mL/min/1.7 3 04/08/2025 9:51 AM EDT [facility] Blood Venipuncture / Unknown [...] Jr., MD LAB BLOOD ORDERABLES nal Result [facility]
[address] [place] [address], * Heparin Anti-Xa (04/08/2025 8:41 AM EDT) Heparin Anti-Xa (UFH) 0.33 0.30 - 0.70 IU/ml 04/08/2025 9:40 AM EDT [facility] Blood Venipuncture / Unknown 04/08/2025 8:41 AM EDT 04/08/2025 9:10 AM EDT Sushil Dean Jr., MD LAB BLOOD ORDERABLES Fi nal Result [facility]
[address] [place] [address], * FL C Arm During Surgery (04/07/2025 9:32 PM EDT) Narrative SYSTEMGENERATED, DOCUMENTATION - 04/07/2025 9:38 PM EDT This procedure was auto-finalized with no dictation required. Sushil Dean Jr., MD IMG FLUOROSCOPY ORDERAB LES Final Result * Wound Culture - Swab, Leg, Right (04/07/2025 9:14 PM EDT) Wound Culture No growth at 3 days ALIZA 04/11/2025 10:40 AM EDT [facility] Gram Stain Occasional WBCs seen 04/11/2025 10:40 AM EDT [facility] Gram Stain No organisms seen 04/11/2025 10:40 AM EDT [facility] Swab Structure of right lower limb / Unknown Collection / Unknown 04/07/2025 9:14 PM EDT 04/08/2025 4:36 AM EDT Sushil Dean Jr., MD MICROBIOLOGY - GENERAL ORDERABLES Final Result [facility]
[address] [place] [address], [facility]
[address] [place] [address], * Anaerobic Culture - Swab, Leg, Right (04/07/2025 9:14 PM EDT) Anaerobic Culture No anaerobes isolated at 5 days ALIZA 04/13/2025 7:21 AM EDT [facility] Swab Structure of right lower limb / Unknown Collection / Unknown 04/07/2025 9:14 PM EDT 04/08/2025 4:36 AM EDT Sushil Dean Jr., MD MICROBIOLOGY - GENERAL ORDERABLES Final Result Performing Organization Address City/[facility]/ZIP Co de Phone Number [facility]
[address] [place] [address], * Anaerobic Culture - Tissue, Leg (04/07/2025 9:13 PM EDT) Anaerobic Culture No anaerobes isolated at 5 days ALIZA 04/13/2025 7:21 AM EDT [facility] Tissue Lower limb structure / Unknown Collection / Unknown 04/07/2025 9:13 PM EDT 04/08/2025 4:54 AM EDT Jason Álvarez DO MICROBIOLOGY - GENERAL ORDERABLE S Final Result [facility]
[address] [place] [address], * Tissue / Bone Culture - Tissue, Leg, Right (04/07/2025 9:13 PM EDT) Tissue Culture No growth at 3 days ALIZA 04/11/2025 10:36 AM EDT [facility] Gram Stain Rare (1+) WBCs seen 04/11/2025 10:36 AM EDT [facility] Gram Stain No organisms seen 04/11/2025 10:36 AM EDT [facility] Tissue Structure of right lower limb / Unknown 04/07/2025 9:13 PM EDT 04/08/2025 4:54 AM EDT Sushil Dean Jr., MD MICROBIOLOGY - GENERAL ORDERABLES Final Result Performing Organization Address City/[facility]/ZIP Co de Phone Number [facility]
[address] [place] [address], [place] [phone] [facility]
[address] [place] [address], [place] [phone] * (ABNORMAL) Wound Culture - Swab, Leg, Right (04/07/2025 9:07 PM EDT) Wound Culture Light growth (2+) Staphylococcus aureus, MRSA(A) ALIZA 04/10/2025 10:38 AM EDT [facility] Comment: Methicillin resistant Staphylococcus aureus, Patient may be an isolation risk. Gram Stain Few (2+) WBCs seen 04/10/2025 10:38 AM EDT [facility] Gram Stain No organisms seen 10:38 AM EDT [facility] Swab Structure of right lower limb / Unknown Collection / Unknown 04/07/2025 9:07 PM EDT 04/08/2025 4:36 AM EDT Narrative Organism Antibiotic Method Susceptibility Staphylococcus aureus, MRSA Clindamycin ALIZA 0.25 ug/ml: Susceptible Staphylococcus aureus, MRSA Erythromycin ALIZA >=8 ug/ml: Resistant Staphylococcus aureus, MRSA Oxacillin ALIZA >=4 ug/ml: Resistant Staphylococcus aureus, MRSA Rifampin LAIZA <=0.5 ug/ml: Susceptible Staphylococcus aureus, MRSA Tetracycline ALIZA <=1 ug/ml: Susceptible Staphylococcus aureus, MRSA Trimethoprim + Sulfamethoxazole ALIZA <=10 ug/ml: Susceptible Staphylococcus aureus, MRSA Vancomycin ALIZA 1 ug/ml: Susceptible Sushil Dean Jr., MD MICROBIOLOGY - GENERAL ORDERABLES Final Result [facility]
[address] [place] [address], [facility]
[address] [place] [address], * Anaerobic Culture - Swab, Leg, Right (04/07/2025 9:07 PM EDT) Pathologist [facility] Anaerobic Culture No anaerobes isolated at 5 days ALIZA 04/13/2025 7:21 AM EDT [facility] Swab Structure of right lower limb / Unknown Collection / Unknown 04/07/2025 9:07 PM EDT 04/08/2025 4:36 AM EDT Sushil Dean Jr., MD MICROBIOLOGY - GENERAL ORDERABLES Final Result Performing Organization Address [facility] Co de Phone Number [facility]
[address] [place] [address], * Heparin Anti-Xa (04/07/2025 9:10 AM EDT) [facility] Heparin Anti-Xa (UFH) 0.30 0.30 - 0.70 IU/ml 04/07/2025 10:12 AM EDT [facility] Blood Venipuncture / Unknown 04/07/2025 9:10 AM EDT 04/07/2025 9:38 AM EDT Una LundbergD LAB BLOOD ORDERABLES Final R esult Performing Organization Address City/[facility]/ZIP Co de Phone Number [facility]
[address] [place] [address], * (ABNORMAL) CBC Auto Differential (04/07/2025 9:10 AM EDT) Pathologist [facility] WBC 8.63 3.40 - 10.80 10*3/mm3 04/07/2025 9:50 AM EDT [facility] RBC 5.23 4.14 - 5.80 10*6/mm3 04/07/2025 9:[facility] Hemoglobin 14.7 13.0 - 17.7 g/dL 04/07/2025 9:50 AM [facility] Hematocrit 44.8 37.5 - 51.0 % 04/07/2025 9:50 [facility] MCV 85.7 79.0 - 97.0 fL 04/07/2025 9:50 AM EDT [facility] MCH 28.1 26.6 - 33.0 pg 04/07/2025 9:50 [facility] MCHC 32.8 31.5 - 35.7 g/dL 04/07/2025 9:50 AM [facility] RDW 12.8 12.3 - 15.4 % 04/07/2025 9:50 AM [facility] RDW-SD 39.9 37.0 - 54.0 fl 04/07/2025 9:50 AM [facility] MPV 10.8 6.0 - 12.0 fL 04/07/2025 9:50 AM [facility] Platelets 149 140 - 450 10*3/mm3 04/07/2025 9:50 AM [facility] Neutrophil % 66.7 42.7 - 76.0 % 04/07/2025 9:50 AM [facility] Lymphocyte % 20.5 19.6 - 45.3 % 04/07/2025 9:50 AM EDT [facility] Monocyte % 9.8 5.0 - 12.0 % 04/07/2025 9:50 AM [facility] Eosinophil % 2.1 0.3 - 6.2 % 04/07/2025 9:50 AM [facility] Basophil % 0.3 0.0 - 1.5 % 04/07/2025 9:50 AM [facility] Immature Grans % 0.6(H) 0.0 - 0.5 % 04/07/2025 9:50 AM EDT [facility] Neutrophils, Absolute 5.75 1.70 - 7.00 10*3/mm3 04/07/2025 9:50 AM EDT [facility] Lymphocytes, Absolute 1.77 0.70 - 3.10 10*3/mm3 04/07/2025 9:50 AM EDT [facility] Monocytes, Absolute 0.85 0.10 - 0.90 10*3/mm3 04/07/2025 9:50 AM EDT [facility] Eosinophils, Absolute 0.18 0.00 - 0.40 10*3/mm3 04/07/2025 9:50 AM EDT [facility] Basophils, Absolute 0.03 0.00 - 0.20 10*3/mm3 04/07/2025 9:50 AM EDT [facility] Immature Grans, Absolute 0.05 0.00 - 0.05 10*3/mm3 04/07/2025 9:50 AM EDT [facility] nRBC 0.0 0.0 - 0.2 /100 WBC 04/07/2025 9:50 AM EDT [facility] Blood Venipuncture / Unknown 04/07/2025 9:10 AM EDT 04/07/2025 9:38 AM EDT us Jason Álvarez DO LAB BLOOD ORDERABLES Final Resul t [facility]
[address] [place] [address], * (ABNORMAL) Basic Metabolic Panel (04/07/2025 9:10 AM EDT) Glucose 112(H) 65 - 99 mg/dL 04/07/2025 10:19 AM EDT [facility] BUN 13.1 6.0 - 20.0 mg/dL 04/07/2025 10:19 AM EDT [facility] Creatinine 0.77 0.76 - 1.27 mg/dL 04/07/2025 10:19 AM EDT [facility] Sodium 139 136 - 145 mmol/L 04/07/2025 10:19 AM EDT [facility] Potassium 4.2 3.5 - 5.2 mmol/L 04/07/2025 10:19 AM EDT [facility] Comment:Specimen hemolyzed. Result may be falsely elevated. Chloride 105 98 - 107 mmol/L 04/07/2025 10:19 AM EDT [facility] CO2 24.8 22.0 - 29.0 mmol/L 04/07/2025 10:19 AM EDT [facility] Calcium 8.6 8.6 - 10.5 mg/dL 04/07/2025 10:19 AM T [facility] BUN/Creatinine Ratio 17.0 7.0 - 25.0 04/07/2025 10:19 AM EDT [facility] Anion Gap 9.2 5.0 - 15.0 mmol/L 04/07/2025 10:19 AM T [facility] eGFR 113.2 >60.0 mL/min/1.7 3 04/07/2025 10:19 AM T [facility] Blood Venipuncture / Unknown 04/07/2025 9:10 AM EDT 04/07/2025 9:38 AM EDT Narrative [facility] - 04/07/2025 10:19 AM [...] DO LAB BLOOD ORDERABLES Final Resul t [facility]
[address] [place] [address], * MRI Tibia Fibula Right With & [...] [place] 04/07/2025 9:58 AM EDT Workstation ID: [id number] Narrative 04/07/2025 9:58 AM EDT MRI TIBIA [...] [place] 04/07/2025 9:58 AM EDT Workstation ID: [id number] us Sushil Dean Jr., MD [facility] MRI ORDERABLES Mary Beth l Result * Heparin Anti-Xa (04/07/2025 1:42 AM EDT) Heparin Anti-Xa (UFH) 0.38 0.30 - 0.70 IU/ml 04/07/2025 2:14 AM EDT [facility] Blood Venipuncture / Unknown 04/07/2025 1:42 AM EDT 04/07/2025 1:54 AM EDT Chelsie Navarretesapna [facility] LAB BLOOD ORDERABLES Final R esult Performing Organization Address City/[facility]/ZIP Co de Phone Number [facility]
[address] [place] [address], * Heparin Anti-Xa (04/06/2025 7:16 PM EDT) Pathologist [facility] Heparin Anti-Xa (UFH) 0.33 0.30 - 0.70 IU/ml 04/06/2025 7:50 PM EDT [facility] Blood Venipuncture / Unknown 04/06/2025 7:16 PM EDT 04/06/2025 7:35 PM EDT Cherri Beatty [facility] LAB BLOOD ORDERABLES Final Res ult Performing Organization Address City/[facility] Co de Phone Number [facility]
[address] [place] [address], * Potassium (04/06/2025 7:16 PM EDT) Pathologist [facility] Potassium 4.0 3.5 - 5.2 mmol/L 04/06/2025 7:53 PM EDT [facility] Blood Venipuncture / Unknown 04/06/2025 7:16 PM EDT 04/06/2025 7:35 PM EDT Jason Álvarez DO LAB BLOOD ORDERABLES Final Resul t Performing Organization Address City/[facility]/ZIP Co de Phone Number [facility]
[address] [place] [address], * (ABNORMAL) Heparin Anti-Xa (04/06/2025 12:36 PM EDT) Heparin Anti-Xa (UFH) 0.24(L) 0.30 - 0.70 IU/ml 04/06/2025 1:23 PM EDT [facility] Blood Venipuncture / Unknown 04/06/2025 12:36 PM EDT 04/06/2025 1:07 PM EDT Una LundbergD LAB BLOOD ORDERABLES Final R esult [facility]
[address] [place] [address], * (ABNORMAL) Heparin Anti-Xa (04/06/2025 3:42 AM EDT) [facility] Heparin Anti-Xa (UFH) 0.25(L) 0.30 - 0.70 IU/ml 04/06/2025 5:30 AM EDT [facility] Blood Venipuncture / Unknown 04/06/2025 3:42 AM EDT 04/06/2025 4:59 AM EDT Chelsie Turpin [facility] LAB BLOOD ORDERABLES Final R esult [facility]
[address] [place] [address], * (ABNORMAL) Basic Metabolic Panel (04/06/2025 3:42 AM EDT) [facility] Glucose 94 65 - 99 mg/dL 04/06/2025 5:59 AM EDT [facility] BUN 12.8 6.0 - 20.0 mg/dL 04/06/2025 5:59 AM EDT [facility] Creatinine 0.80 0.76 - 1.27 mg/dL 04/06/2025 5:59 AM EDT [facility] Sodium 138 136 - 145 mmol/L 04/06/2025 5:59 AM EDT [facility] Potassium 3.6 3.5 - 5.2 mmol/L 04/06/2025 5:59 AM EDT [facility] Chloride 103 98 - 107 mmol/L 04/06/2025 5:59 AM EDT [facility] CO2 24.2 22.0 - 29.0 mmol/L 04/06/2025 5:59 AM EDT [facility] Calcium 8.0(L) 8.6 - 10.5 mg/dL 04/06/2025 5:59 AM EDT [facility] BUN/Creatinine Ratio 16.0 7.0 - 25.0 04/06/2025 5:59 AM EDT [facility] Anion Gap 10.8 5.0 - 15.0 mmol/L 04/06/2025 5:59 AM EDT [facility] eGFR 111.9 >60.0 mL/min/1.7 3 04/06/2025 5:59 AM EDT [facility] Blood Venipuncture / Unknown 04/06/2025 3:42 AM EDT 04/06/2025 5:20 AM EDT Narrative [facility] - 04/06/2025 5:59 AM [...] DO LAB BLOOD ORDERABLES Final Resul t [facility]
[address] [place] [address], * (ABNORMAL) CBC Auto Differential (04/06/2025 3:41 AM EDT) WBC 10.86(H) 3.40 - 10.80 10*3/mm3 04/06/2025 5:04 AM EDT [facility] RBC 5.08 4.14 - 5.80 10*6/mm3 04/06/2025 5:04 AM EDT [facility] Hemoglobin 13.9 13.0 - 17.7 g/dL 04/06/2025 5:04 AM EDT [facility] Hematocrit 43.7 37.5 - 51.0 % 04/06/2025 5:04 AM EDT [facility] MCV 86.0 79.0 - 97.0 fL 04/06/2025 5:04 AM EDT [facility] MCH 27.4 26.6 - 33.0 pg 04/06/2025 5:04 AM EDT [facility] MCHC 31.8 31.5 - 35.7 g/dL 04/06/2025 5:04 AM EDT [facility] RDW 12.8 12.3 - 15.4 % 04/06/2025 5:04 AM EDT [facility] RDW-SD 40.0 37.0 - 54.0 fl 04/06/2025 5:04 AM EDT [facility] MPV 11.7 6.0 - 12.0 fL 04/06/2025 5:04 AM EDT [facility] Platelets 115(L) 140 - 450 10*3/mm3 04/06/2025 5:04 AM EDT [facility] Neutrophil % 65.3 42.7 - 76.0 % 04/06/2025 5:04 AM EDT [facility] Lymphocyte % 20.5 19.6 - 45.3 % 04/06/2025 5:04 AM EDT [facility] Monocyte % 11.8 5.0 - 12.0 % 04/06/2025 5:04 AM EDT [facility] Eosinophil % 1.8 0.3 - 6.2 % 04/06/2025 5:04 AM EDT [facility] Basophil % 0.3 0.0 - 1.5 % 04/06/2025 5:04 AM EDT [facility] Immature Grans % 0.3 0.0 - 0.5 % 04/06/2025 5:04 AM EDT [facility] Neutrophils, Absolute 7.09(H) 1.70 - 7.00 10*3/mm3 04/06/2025 5:04 AM EDT [facility] Lymphocytes, Absolute 2.23 0.70 - 3.10 10*3/mm3 04/06/2025 5:04 AM EDT [facility] Monocytes, Absolute 1.28(H) 0.10 - 0.90 10*3/mm3 04/06/2025 5:04 AM EDT [facility] Eosinophils, Absolute 0.20 0.00 - 0.40 10*3/mm3 04/06/2025 5:04 AM EDT [facility] Basophils, Absolute 0.03 0.00 - 0.20 10*3/mm3 04/06/2025 5:04 AM EDT [facility] Immature Grans, Absolute 0.03 0.00 - 0.05 10*3/mm3 04/06/2025 5:04 AM EDT [facility] nRBC 0.0 0.0 - 0.2 /100 WBC 04/06/2025 5:04 AM EDT [facility] Blood Venipuncture / Unknown 04/06/2025 3:41 AM EDT 04/06/2025 4:58 AM EDT us Jason Álvarez DO LAB BLOOD ORDERABLES Final Resul t [facility]
[address] [place] [address], * Heparin Anti-Xa (04/05/2025 8:43 PM EDT) Heparin Anti-Xa (UFH) 0.38 0.30 - 0.70 IU/ml 04/05/2025 9:09 PM EDT [facility] Blood Venipuncture / Unknown 04/05/2025 8:43 PM EDT 04/05/2025 8:55 PM EDT Cherri Beatty [facility] LAB BLOOD ORDERABLES Final Res ult Performing Organization Address [facility] Co de Phone Number [facility]
[address] [place] [address], * CK (04/05/2025 12:15 PM EDT) Creatine Kinase 140 20 - 200 U/L 04/05/2025 1:31 PM EDT [facility] Blood Venipuncture / Unknown 04/05/2025 12:15 PM EDT 04/05/2025 1:03 PM EDT Carlton Mead MD LAB BLOOD ORDERABLES Final R esult Performing Organization Address [facility] Co de Phone Number [facility]
[address] [place] [address], [place] [phone] * (ABNORMAL) Heparin Anti-Xa (04/05/2025 12:15 PM EDT) Heparin Anti-Xa (UFH) 0.17(L) 0.30 - 0.70 IU/ml 04/05/2025 1:21 PM EDT [facility] Blood Venipuncture / Unknown 04/05/2025 12:15 PM EDT 04/05/2025 1:04 PM EDT Una LundbergD LAB BLOOD ORDERABLES Final R esult Performing Organization Address City/[facility]/ZIP Co de Phone Number [facility]
[address] [place] [address], * (ABNORMAL) aPTT (04/05/2025 3:54 AM EDT) [facility] PTT 35.3(L) 60.0 - 90.0 seconds 04/05/2025 4:31 AM EDT [facility] Blood Venipuncture / Unknown 04/05/2025 3:54 AM EDT 04/05/2025 4:15 AM EDT Narrative [facility] - 04/05/2025 4:31 AM EDT PTT = The equivalent PTT values for the therapeutic range of heparin levels at 0.3 to 0.5 U/ml are 60 to 70 seconds. Una Perla [employer] LAB BLOOD ORDERABLES Final R esult Performing Organization Address [facility] Co de Phone Number [facility]
[address] [place] [address], * Heparin Anti-Xa (04/05/2025 3:54 AM EDT) [facility] Heparin Anti-Xa (UFH) 0.30 0.30 - 0.70 IU/ml 04/05/2025 4:32 AM EDT [facility] Blood Venipuncture / Unknown 04/05/2025 3:54 AM EDT 04/05/2025 4:15 AM EDT [employer] LAB BLOOD ORDERABLES Final R esult Performing Organization Address City/[facility] Co de Phone Number [facility]
[address] [place] [address], * (ABNORMAL) CBC Auto Differential (04/05/2025 3:54 AM EDT) [facility] WBC 11.18(H) 3.40 - 10.80 10*3/mm3 04/05/2025 4:20 AM EDT [facility] RBC 5.00 4.14 - 5.80 10*6/mm3 04/05/2025 4:20 AM EDT [facility] Hemoglobin 13.9 13.0 - 17.7 g/dL 04/05/2025 4:20 AM EDT [facility] Hematocrit 42.4 37.5 - 51.0 % 04/05/2025 4:20 AM EDT [facility] MCV 84.8 79.0 - 97.0 fL 04/05/2025 4:20 AM EDT [facility] MCH 27.8 26.6 - 33.0 pg 04/05/2025 4:20 [facility] MCHC 32.8 31.5 - 35.7 g/dL 04/05/2025 4:20 AM [facility] RDW 12.9 12.3 - 15.4 % 04/05/2025 4:20 AM [facility] RDW-SD 39.7 37.0 - 54.0 fl 04/05/2025 4:20 AM [facility] MPV 10.2 6.0 - 12.0 fL 04/05/2025 4:20 AM [facility] Platelets 160 140 - 450 10*3/mm3 04/05/2025 4:20 AM [facility] Neutrophil % 73.5 42.7 - 76.0 % 04/05/2025 4:20 AM [facility] Lymphocyte % 14.0(L) 19.6 - 45.3 % 04/05/2025 4:20 AM EDT [facility] Monocyte % 11.0 5.0 - 12.0 % 04/05/2025 4:20 AM [facility] Eosinophil % 0.8 0.3 - 6.2 % 04/05/2025 4:20 AM [facility] Basophil % 0.3 0.0 - 1.5 % 04/05/2025 4:20 AM EDT [facility] Immature Grans % 0.4 0.0 - 0.5 % 04/05/2025 4:20 AM EDT [facility] Neutrophils, Absolute 8.23(H) 1.70 - 7.00 10*3/mm3 04/05/2025 4:20 AM EDT [facility] Lymphocytes, Absolute 1.56 0.70 - 3.10 10*3/mm3 04/05/2025 4:20 AM EDT [facility] Monocytes, Absolute 1.23(H) 0.10 - 0.90 10*3/mm3 04/05/2025 4:20 AM EDT [facility] Eosinophils, Absolute 0.09 0.00 - 0.40 10*3/mm3 04/05/2025 4:20 AM EDT [facility] Basophils, Absolute 0.03 0.00 - 0.20 10*3/mm3 04/05/2025 4:20 AM EDT [facility] Immature Grans, Absolute 0.04 0.00 - 0.05 10*3/mm3 04/05/2025 4:20 AM EDT [facility] nRBC 0.0 0.0 - 0.2 /100 WBC 04/05/2025 4:20 AM EDT [facility] Blood Venipuncture / Unknown 04/05/2025 3:54 AM EDT 04/05/2025 4:16 AM EDT Una Perla PharmD LAB BLOOD ORDERABLES Final R esult [facility]
[address] [place] [address], * (ABNORMAL) Basic Metabolic Panel (04/05/2025 3:54 AM EDT) [facility] Signature Glucose 152(H) 65 - 99 mg/dL 04/05/2025 4:40 AM EDT [facility] BUN 17.3 6.0 - 20.0 mg/dL 04/05/2025 4:40 AM T [facility] Creatinine 0.92 0.76 - 1.27 mg/dL 04/05/2025 4:40 AM EDT [facility] Sodium 136 136 - 145 mmol/L 04/05/2025 4:40 AM EDT [facility] Potassium 3.9 3.5 - 5.2 mmol/L 04/05/2025 4:40 AM EDT [facility] Chloride 103 98 - 107 mmol/L 04/05/2025 4:40 AM EDT [facility] CO2 24.0 22.0 - 29.0 mmol/L 04/05/2025 4:40 AM T [facility] Calcium 7.8(L) 8.6 - 10.5 mg/dL 04/05/2025 4:40 AM [facility] BUN/Creatinine Ratio 18.8 7.0 - 25.0 04/05/2025 4:40 AM T [facility] Anion Gap 9.0 5.0 - 15.0 mmol/L 04/05/2025 4:40 AM [facility] eGFR 105.2 >60.0 mL/min/1.7 3 04/05/2025 4:40 AM [facility] Blood Venipuncture / Unknown 04/05/2025 [...] Re sult Performing Organization Address [facility] Co de Phone Number [facility]
[address] [place] [address], * (ABNORMAL) aPTT (04/05/2025 12:18 AM EDT) PTT 33.6(L) 60.0 - 90.0 seconds 04/05/2025 12:53 AM EDT [facility] Blood Venipuncture / Unknown 04/05/2025 12:18 AM EDT 04/05/2025 12:37 AM EDT Narrative [facility] - 04/05/2025 12:53 AM EDT PTT = The equivalent PTT values for the therapeutic range of heparin levels at 0.3 to 0.5 U/ml are 60 to 70 seconds. Una Perla PharmD LAB BLOOD ORDERABLES Final R esult Performing Organization Address [facility] Co de Phone Number [facility]
[address] [place] [address], [place] [phone] * (ABNORMAL) Protime-INR (04/05/2025 12:18 AM EDT) Protime 15.9(H) 12.2 - 15.3 Seconds 04/05/2025 12:53 AM EDT [facility] INR 1.19(H) 0.89 - 1.12 04/05/2025 12:53 AM EDT [facility] Blood Venipuncture / Unknown 04/05/2025 12:18 AM EDT 04/05/2025 12:37 AM EDT Una Perla PharmD LAB BLOOD ORDERABLES Final R esult Performing Organization Address City/[facility] Co de Phone Number [facility]
[address] [place] [address], [place] [phone] * Heparin Anti-Xa (04/05/2025 12:18 AM EDT) Heparin Anti-Xa ([facility]) 0.39 0.30 - 0.70 IU/ml 04/05/2025 12:54 AM EDT [facility] Blood Venipuncture / Unknown 04/05/2025 12:18 AM EDT 04/05/2025 12:37 AM EDT Una Perla PharmD LAB BLOOD ORDERABLES Final R esult [facility]
[address] [place] [address], * MRI Tibia Fibula Right With & [...] MD 04/04/2025 11:00 PM EDT Workstation ID: [id number] Narrative 04/04/2025 11:00 PM EDT MRI TIBIA [...] MD 04/04/2025 11:00 PM EDT Workstation ID: [id number] us Leonora Shepherd MD IMG MRI ORDERABLES Final Resu lt * POC Creatinine (04/04/2025 2:49 PM EDT) [facility] Creatinine 1.10 0.60 - 1.30 mg/dL 04/07/2025 7:14 PM EDT [facility] Comment:Serial Number: [id number]: [id number] Venous Blood 04/04/2025 2:49 PM EDT 04/07/2025 7:14 PM EDT Jason Álvarez DO POINT OF CARE TEST ORDERABLES Fi nal Result [facility]
[address] [place] [address], * (ABNORMAL) CBC Auto Differential (04/04/2025 2:47 PM EDT) [facility] WBC 12.72(H) 3.40 - 10.80 10*3/mm3 04/04/2025 2:56 PM EDT [facility] RBC 5.64 4.14 - 5.80 10*6/mm3 04/04/2025 2:56 PM EDT [facility] Hemoglobin 15.3 13.0 - 17.7 g/dL 04/04/2025 2:56 PM EDT [facility] Hematocrit 47.9 37.5 - 51.0 % 04/04/2025 2:56 PM EDT [facility] MCV 84.9 79.0 - 97.0 fL 04/04/2025 2:56 PM EDT [facility] MCH 27.1 26.6 - 33.0 pg 04/04/2025 2:56 PM EDT [facility] MCHC 31.9 31.5 - 35.7 g/dL 04/04/2025 2:56 PM EDT [facility] RDW 13.1 12.3 - 15.4 % 04/04[facility]2025 [facility] RDW-SD 40.3 37.0 - 54.0 fl 04/04/2025 2:56 PM EDT [facility] MPV 9.4 6.0 - 12.0 fL 04/04/2025 2:56 PM EDT [facility] Platelets 232 140 - 450 10*3/mm3 04/04/2025 2:56 PM EDT [facility] Neutrophil % 74.9 42.7 - 76.0 % 04/04/2025 2:56 PM EDT [facility] Lymphocyte % 13.1(L) 19.6 - 45.3 % 04/04/2025 2:[facility] Monocyte % 11.2 5.0 - 12.0 % 04/04/2025 2:56 [facility] Eosinophil % 0.4 0.3 - 6.2 % 04/04/2025 2:56 PM EDT [facility] Basophil % 0.2 0.0 - 1.5 % 04/04/2025 2:56 [facility] Immature Grans % 0.2 0.0 - 0.5 % 04/04/2025 2:56 PM [facility] Neutrophils, Absolute 9.52(H) 1.70 - 7.00 10*3/mm3 04/04/2025 2:56 PM [facility] Lymphocytes, Absolute 1.66 0.70 - 3.10 10*3/mm3 04/04/2025 2:56 PM EDT [facility] Monocytes, Absolute 1.43(H) 0.10 - 0.90 10*3/mm3 04/04/2025 2:56 PM EDT [facility] Eosinophils, Absolute 0.05 0.00 - 0.40 10*3/mm3 04/04/2025 2:56 PM [facility] Basophils, Absolute 0.03 0.00 - 0.20 10*3/mm3 04/04/2025 2:56 PM EDT [facility] Immature Grans, Absolute 0.03 0.00 - 0.05 10*3/mm3 04/04/2025 2:56 PM EDT [facility] nRBC 0.0 0.0 - 0.2 /100 WBC 04/04/2025 2:56 PM EDT [facility] Blood Venipuncture / Unknown 04/04/2025 2:47 PM EDT 04/04/2025 2:52 PM EDT Mario Ortiz [facility] BLOOD ORDERABLES Fin al Result Performing Organization Address City/[facility]/ZIP Co de Phone Number [facility]
[address] [place] [address], * (ABNORMAL) C-reactive Protein (04/04/2025 2:47 PM EDT) C-Reactive Protein 8.57(H) 0.00 - 0.50 mg/dL 04/04/2025 3:26 PM EDT [facility] Blood Venipuncture / Unknown 04/04/2025 2:47 PM EDT 04/04/2025 2:52 PM EDT Mario Ortiz [facility] BLOOD ORDERABLES Fin al Result Performing Organization Address [facility] de Phone Number [facility]
[address] [place] [address], * (ABNORMAL) Sedimentation Rate (04/04/2025 2:47 PM EDT) Sed Rate 51(H) 0 - 15 mm/hr 04/04/2025 3:06 PM EDT [facility] Blood Venipuncture / Unknown 04/04/2025 2:47 PM EDT 04/04/2025 2:52 PM EDT [facility]iz [facility]OD ORDERABLES Fin al Result Performing Organization Address City/[facility]/ZIP Co de Phone Number [facility]
[address] [place] [address], * Comprehensive Metabolic Panel (04/04/2025 2:47 PM EDT) [facility] Glucose 90 65 - 99 mg/dL 04/04/2025 3:26 PM EDT [facility] BUN 18.3 6.0 - 20.0 mg/dL 04/04/2025 3:26 PM EDT [facility] Creatinine 0.94 0.76 - 1.27 mg/dL 04/04/2025 3:26 PM EDT [facility] Sodium 136 136 - 145 mmol/L 04/04/2025 3:26 PM EDT [facility] Potassium 3.8 3.5 - 5.2 mmol/L 04/04/2025 3:26 PM EDT [facility] Chloride 100 98 - 107 mmol/L 04/04/2025 3:26 PM EDT [facility] CO2 25.3 22.0 - 29.0 mmol/L 04/04/2025 3:26 PM EDT [facility] Calcium 8.6 8.6 - 10.5 mg/dL 04/04/2025 3:26 PM EDT [facility] Total Protein 7.3 6.0 - 8.5 g/dL 04/04/2025 3:26 PM EDT [facility] Albumin 4.1 3.5 - 5.2 g/dL 04/04/2025 3:26 PM EDT [facility] ALT (SGPT) 26 1 - 41 U/L 04/04/2025 3:26 PM EDT [facility] AST (SGOT) 25 1 - 40 U/L 04/04/2025 3:26 PM EDT [facility] Alkaline Phosphatase 106 39 - 117 U/L 04/04/2025 3:26 PM EDT [facility] Total Bilirubin 1.0 0.0 - 1.2 mg/dL 04/04/2025 3:26 PM EDT [facility] Globulin 3.2 gm/dL 04/04/2025 3:26 PM EDT [facility] Comment:Calculated Result A/G Ratio 1.3 g/dL 04/04/2025 3:26 PM EDT [facility] BUN/Creatinine Ratio 19.5 7.0 - 25.0 04/04/2025 3:26 PM EDT [facility] Anion Gap 10.7 5.0 - 15.0 mmol/L 04/04/2025 3:26 PM EDT [facility] eGFR 102.5 >60.0 mL/min/1.7 3 04/04/2025 3:26 PM EDT [facility] Blood Venipuncture / Unknown 04/04/2025 2:47 PM EDT 04/04/2025 2:52 PM EDT Narrative [facility] - 04/04/2025 3:26 PM [...] DO LAB BLOOD ORDERABLES Fin al Result [facility]
[address] [place] [address], documented in this encounter Visit Diagnoses Diagnosis [...] 04/05/2025 3:33 PM EDT 2,000 Units heparin 84516 units/250 mL (100 units/mL) in 0.45 % [...] BPA Driven Protocol Open Order & [facility] Electrolyte Replacement Protocol Algorithm to View [...] BPA Driven Protocol Open Order & [facility] Electrolyte Replacement Protocol Algorithm to View [...] disposal. 0831 (Given - Provider: Amber Salazar, BIOINFORMATICIST)194 (Given - Provider: Anahy Marcelino, BIOINFORMATICIST)2129 (Canceled Entry - Provider: Anahy Marcelino RRT [...] Continuous Medication Order 04/09/2025 04/10/2025 04/11/2025 heparin 72545 units/250 mL (100 units/mL) in 0.45 % NaCl infusion (CANCELED) 18 Units/kg/hr 134 kg (24.12 mL/hr, rounded to 24.1 mL/hr), Intravenous, Titrated, Starting on 04/05/25 at 0045, Pharmacy dosing - VTE (PE/DVT) - Boluses (No initial bolus), Indications: DVT/PE (active thrombosis) 0614 (New Bag - Provider: Bbo Rosenberg RN)0712 (Handoff - Provider: Bob Rosenberg [...] BPA Driven Protocol Open Order & [facility] Electrolyte Replacement Protocol Algorithm to View [...] BPA Driven Protocol Open Order & [facility] Electrolyte Replacement Protocol Algorithm to View [...] documented as of this encounter 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
--- OUTSIDE RECORDS SUMMARY | 2025-04-07 18:00 | XMS_ITS | Encounter Summary ---
[facility] Address [address] [place] [address] Care Team Providers Care Insurance Application Investigator Name Role Phone Provider, No Known Primary Care Provider Unavail able Reason for Visit * Reason Comments Leg Swelling * Auth/Cert Specialty Diagnoses / Procedures Referred By Contac t Referred To Contact Diagnoses Right BKA infection Referral ID Status Reason Start Date Expiration Date Visits Re quested Visits Authorized [id number] 1 1 Encounter Details Date Type Department Care Team (Late st Contact Info) Description 04/07/2025 6:00 PM EDT - 04/07/2025 6:52 PM EDT Surgery [facility] [address] [place] [address] Sushil Dean Jr., MD [address] [place] [address] [address] [id number] LEG DEBRIDEMENT, IRRIGATION Social History Tobacco Use Types Packs/Day Years Used Date Smoking Tobacco: Never Smokeless Tobacco: Never Tobacco Cessation:Counseling Given: Not Answered Alcohol Use Standard Drinks/Week Comments Not Currently 0 (1 standard drink = 0.6 oz pur e alcohol) [facility] Utilities Answer Date Recorded In the past 12 months has [employer] electric, gas, oil, or water company threatened [...] or training? Not on file Preferred Language Ecuadorean 04/07/2025 Sex and Gender Information Value Date [...] 2:25 PM EDT Cherri Grimm RN * [place] Suicide Severity Rating Scale (Screener/Recent Self-Report) Question [...] from the original note were not included. [facility] Medicine Services DISCHARGE SUMMARY Patient [...] Date/Time Wound Culture - Swab, Leg, Right [[id number]] (Abnormal) (Susceptibility) Collected: 04/07/252106 Lab Status: Final [...] Units Date/Time FL C Arm During Surgery [[id number]] Resulted: 04/07/252137 Updated: 04/07/252137 Narrative: This procedure was auto-finalized with no dictation required. MRI Tibia Fibula Right With & Without Contrast [[id number]] Collected: 04/07/25 0938 Updated: 04/07/25 1001 Narrative: [...] Buenrostro 04/07/2025 9:58 AM EDT Workstation ID: [id number] MRI Tibia Fibula Right With & Without Contrast [[id number]] Collected: 04/04/252256 Updated: 04/04/252302 Narrative: MRI TIBIA [...] represent a small area of phlegmonous change ([id number] image 10) measuring approximately 1.6 cm which [...] MD 04/04/2025 11:00 PM EDT Workstation ID: [id number] Pending Labs Order Current Status Fungus Culture [...] Male) Date of 1980 Social Security Number [id number] [place] [address] [place] [id number] Taoist Unknown Marital Status Unknown Admission Date 04/04/2025 Admission Type Emergency Admitting Provider Jadyn Richardson DO Attending Provider Jadyn Richardson DO Department, Room/Bed [facility] 5G, S565/1 Discharge Date Discharge Disposition Discharge Destination Attending Provider: Jadyn Richardson DO Allergies: Ceftin [Cefuroxime], Keflex [Cephalexin], Latex Isolation: None Infection: MRSA (05/11/23) Code Status: CPR Ht: 180.3 cm (71 ) Wt: 134 kg (295 lb) Admission Cmt: None 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 Insurance as of 04/04/2025 Primary Coverage Payor Plan Insurance Group Employer/Plan Group [employer] MEDICAID ID HUMANA MEDICAID ID [id number] Payor Plan Address Payor Plan Phone Number Payor Plan Fax Number Effective Dates [employer] [address] [address] 08/10/2023 - None Entered [facility] [address] Subscriber Name Subscriber Date Member ID WON DENNIS 1980 [id number] Emergency Contacts 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 (Rel.) Home Phone Work Phone Mobile Phone Avril Dennis (Spouse) -- -- [phone] Robert Hackett (Relative) -- -- [phone] [facility] 5G [address] [facility] [address] Patient: ROOM: [facility] Won Dennis [address] [facility] [place] [id number] : 1980 SSN: [id number] Sex: M PCP: Provider, No Known Emergency Contact Information Name Relation Home Work Mobile Avril Dennis Spouse [phone] Other Contacts Name Relation Home Work Mobile Robert Hackett Relative [phone] INSURANCE PAYOR PLAN GROUP # SUBSCRIBER ID Primary: Secondary: MEDICARE [place]ICA[place] [id number] Admitting Diagnosis: 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 Outpatient intravenous antibiotic therapy: Daptomycin 800 mg IV daily to be supplied by [facility] 2. Home health to perform [...] INFECTIOUS DISEASE Progress Note Won Dennis 1980 [id number] Date of Consult: 04/10/2025 Admission Date: 04/04/2025 [...] him to seek treatment at [facility]. He is known to Dr. Dean. He [...] Jr., MD, 20 mg at 04/09/25906 heparin 79116 units/250 mL (100 units/mL) in 0.45 % [...] 2750 mg/500 mL 0.9% NS IVPB ([facility]) Ordering Provider: Mario Crowley, DO 20 mg/kg [...] Units Date/Time FL C Arm During Surgery [[id number]] Resulted: 04/07/252137 Updated: 04/07/252137 Narrative: This procedure was auto-finalized with no dictation required. MRI Tibia Fibula Right With & Without Contrast [[id number]] Collected: 04/07/2538 Updated: 04/07/25 1001 Narrative: MRI [...] Buenrostro 04/07/2025 9:58 AM EDT Workstation ID: [id number] Impression: Recurrent Right BKA stump abscess/cellulitis- this [...] 04/10/251323 Creation Time: 04/10/251323 Signed [facility] Medicine Services PROGRESS NOTE Patient [...] Date/Time Wound Culture - Swab, Leg, Right [[id number]] (Abnormal) (Susceptibility) Collected: 04/07/252106 Lab Status: Final [...] Row Name 04/06/25 1143 Sit-Stand Transfer Sit-Stand Glenn (Transfers) modified independence - Comment, (Sit-Stand Transfer) Pt stood from recliner. Not holding onto walker, pt able to pull his pants up while balancing on his one leg. -LM Row Name 04/06/25 1143 Gait/Stairs (Locomotion) Glenn Level (Gait) modified independence - Distance in [...] Motion bilateral lower extremity ROM WFL -LM [facility] Name 04/06/25 1145 Strength Comprehensive (MMT) General Manual Muscle Testing (MMT) Assessment no strength deficits identified BLEs -LM [facility] Name 04/06/25 1145 Balance Balance Assessment [...] Physical Therapist Goals/Plan No documentation. Clinical Impression [facility] 04/06/25 1146 Pain Pretreatment Pain Rating 0/10 - no pain -LM Posttreatment Pain Rating 0/10 - no pain -LM [facility] 04/06/25 1146 Plan of Care Review Plan of Care Reviewed With patient -LM Outcome Evaluation PT evaluation completed. Pt demonstrated independence with all mobility including ambulating 100 feet using rw - no unsteadiness noted. Pt reports he feels at baseline and doesn't think he needs skilled PT while here. Recommend home at d/c. PT signing off. -LM [facility] Name 04/06/25 1146 Therapy Assessment/Plan (PT) Criteria for Skilled Interventions Met (PT) no;no problems identified which require skilled intervention -LM Therapy Frequency (PT) evaluation only -LM Predicted Duration of Therapy Intervention (PT) Eval Only -LM [facility] Name 04/06/25 1146 Vital Signs Pretreatment Heart Rate (beats/min) 86 -LM Posttreatment Heart Rate (beats/min) 96 -LM Pre SpO2 (%) 95 -LM O2 Delivery Pre Treatment room air -LM Post SpO2 (%) 96 -LM O2 Delivery Post Treatment room air -LM Pre Patient Position Sitting -LM Post Patient Position Sitting -LM [facility] Name 04/06/25 1146 Positioning and Restraints [...] Nurse Physical Therapy Education Title: PT OT SPECIAL AGENT IN CHARGE Therapies (Done) Topic: Physical Therapy (Done) Point: Mobility training (Done) Learning Progress Summary Patient Acceptance, E, VU,DU by at 04/06/2025 1147 Point: Precautions (Done) Learning Progress Summary Patient Acceptance, E, VU,DU by at 04/06/2025 1147 User Cabrera Initials Effective Dates Name Provider Type [facility] 01/24/25 - Susan Cavazos, PT Physical [...] Description Service Date Service Provider Modifiers Qty [id number] PT EVAL LOW COMPLEXITY 3 04/06/2025 Susan [...] mg Daily 04/05/2025 -- Route: Oral heparin 46772 units/250 mL (100 units/mL) in 0.45 % [...] 22 [facility] [address], [address] [facility], [address] Please schedule at [phone] VONDA Garcia 04/11/25 08:32 EDT Cosigned by Sushil Dean Jr., MD at 04/19/2025 10:33 AM EDT Associated attestation - Sushil Dean Jr., MD - 04/19/2025 10:33 AM EDT I have reviewed this documentation and agree. * Rosario Hill APRN - 04/10/2025 1:24 PM EDT Images from the original note were not included. [facility] Medicine Services PROGRESS NOTE Patient [...] Date/Time Wound Culture - Swab, Leg, Right [[id number]] (Abnormal) (Susceptibility) Collected: 04/07/252106 Lab Status: Final [...] mg Daily 04/05/2025 -- Route: Oral heparin 66817 units/250 mL (100 units/mL) in 0.45 % [...] 22 [facility] [address], [address] [facility], [address] Please schedule at [phone] VONDA Garcia 04/10/25 09:01 EDT Cosigned by Sushil Dean Jr., MD at 04/19/2025 10:33 AM EDT Associated attestation - Sushil Dean Jr., MD - 04/19/2025 10:33 AM EDT I have reviewed this documentation and agree. * Carlton Mead MD - 04/10/2025 7:38 AM EDT Images from the original note were not included. INFECTIOUS DISEASE Progress Note Won Dennis 1980 [id number] Date of Consult: 04/10/2025 Admission Date: 04/04/2025 [...] him to seek treatment at [facility]. He is known to Dr. Dean. He [...] IRRIGATION; Surgeon: Sushil Dean Jr., MD; Location: [facility] OR; Service: Orthopedics; Laterality: Right; PLACEMENT OF WOUND VAC Right 04/07/2025 Procedure: WOUND VACUUM ASSISTED CLOSURE; Surgeon: Sushil Dean Jr., MD; Location: [facility] OR; Service: Orthopedics; Laterality: Right; WOUND CLOSURE [...] Jr., MD, 20 mg at 04/09/25906 heparin 29222 units/250 mL (100 units/mL) in 0.45 % [...] injection 15 mg, 15 mg, Intravenous, Once, Monihsa Jones APRN Magnesium Standard Dose Replacement - [...] Units Date/Time FL C Arm During Surgery [[id number]] Resulted: 04/07/252137 Updated: 04/07/252137 Narrative: This procedure was auto-finalized with no dictation required. MRI Tibia Fibula Right With & Without Contrast [[id number]] Collected: 04/07/25937 Updated: 04/07/25 100 Narrative: MRI [...] Buenrostro 04/07/2025 9:58 AM EDT Workstation ID: [id number] Impression: Recurrent Right BKA stump abscess/cellulitis- this [...] MD 04/10/2025 07:38 EDT * Larisa Hamilton [facility] - 04/10/2025 7:17 AM EDT [...] from the original note were not included. [facility] Medicine Services PROGRESS NOTE Patient [...] Date/Time Wound Culture - Swab, Leg, Right [[id number]] (Abnormal) Collected: 04/07/252106 Lab Status: Preliminary result [...] Jason Álvarez DO 04/09/25 * Larisa Hamilton [facility] - 04/09/2025 11:36 AM EDT [...] Admin Instructions: Open Order & Select [facility] Electrolyte Replacement Protocol Algorithm to View Details [...] mg Daily 04/05/2025 -- Route: Oral heparin 06993 units/250 mL (100 units/mL) in 0.45 % [...] Admin Instructions: Open Order & Select [facility] Electrolyte Replacement Protocol Algorithm to View Details [...] radiographs [facility] [address], [address] [facility], [address] Please schedule at [phone] VONDA Garcia 04/09/25 09:18 EDT Cosigned by Sushil Dean Jr., MD at 04/19/2025 10:33 AM EDT Associated attestation - Sushil Dean Jr., MD - 04/19/2025 10:33 AM EDT I have reviewed this documentation and agree. * Carlton Mead MD - 04/09/2025 8:25 AM EDT Images from the original note were not included. INFECTIOUS DISEASE Progress Note Won Dennis 1980 [id number] Date of Consult: 04/09/2025 Admission Date: 04/04/2025 [...] him to seek treatment at [facility]. He is known to Dr. Dean. He [...] IRRIGATION; Surgeon: Sushil Dean Jr., MD; Location: [facility]; Service: Orthopedics; Laterality: Right; PLACEMENT OF [...] 1 Application, 1 Application, Topical, Q12H, Sushil Daen Jr., MD, 1 Application at 04/08/252007 DAPTOmycin [...] MD, 20 mg at 04/08/25 0800 heparin 35764 units/250 mL (100 units/mL) in 0.45 % [...] Units Date/Time FL C Arm During Surgery [[id number]] Resulted: 04/07/252137 Updated: 04/07/252137 Narrative: This procedure was auto-finalized with no dictation required. MRI Tibia Fibula Right With & Without Contrast [[id number]] Collected: 04/07/25 0938 Updated: 04/07/25 1001 Narrative: [...] Chitra 04/07/2025 9:58 AM EDT Workstation ID: [id number] Impression: Recurrent Right BKA stump abscess/cellulitis- this [...] mg IV daily to be supplied by [facility] 2. Home health to perform [...] from the original note were not included. [facility] Medicine Services PROGRESS NOTE Patient [...] Buenrostro 04/07/2025 9:58 AM EDT Workstation ID: [id number] I have personally reviewed the therapy plans: [...] Jason Álvarez, DO 04/08/25 * Hamilton, Larisa, [facility] - 04/08/2025 11:48 AM EDT [...] Admin Instructions: Open Order & Select [facility] Electrolyte Replacement Protocol Algorithm to View Details [...] mg Daily 04/05/2025 -- Route: Oral heparin 07965 units/250 mL (100 units/mL) in 0.45 % [...] INFECTIOUS DISEASE Progress Note Won Dennis 1980 [id number] Date of Consult: 04/08/2025 Admission Date: 04/04/2025 [...] him to seek treatment at [facility]. He is known to Dr. Dean. He [...] Oral, Q6H PRN, 500 mg at 04/06/25 5784 OR acetaminophen (TYLENOL) 160 MG/5ML oral solution [...] Jr., MD, 20 mg at 04/07/25950 heparin 27166 units/250 mL (100 units/mL) in 0.45 % [...] 2750 mg/500 mL 0.9% NS IVPB ([facility]) Ordering Provider: Mario Crowley, DO 20 mg/kg [...] Units Date/Time FL C Arm During Surgery [[id number]] Resulted: 04/07/252137 Updated: 04/07/252137 Narrative: This procedure was auto-finalized with no dictation required. MRI Tibia Fibula Right With & Without Contrast [[id number]] Collected: 04/07/25 0938 Updated: 04/07/25 1001 Narrative: [...] Buenrostro 04/07/2025 9:58 AM EDT Workstation ID: [id number] Impression: Right BKA stump cellulitis- s/p BKA with multiple surgical interventions with Known MRSA 05/09/2025. (Treated by ID in [place] Dr. Harris). Dr. Torres treated him with [...] from the original note were not included. [facility] Medicine Services PROGRESS NOTE Patient [...] Buenrostro 04/07/2025 9:58 AM EDT Workstation ID: [id number] I have personally reviewed the therapy plans: [...] Jason DO Preeti 04/07/25 * Larisa Hamilton, [facility] - 04/07/2025 11:56 AM EDT [...] INFECTIOUS DISEASE Progress Note Won Dennis 1980 [id number] Date of Consult: 04/07/2025 Admission Date: 04/04/2025 [...] him to seek treatment at [facility]. He is known to Dr. Dean. He [...] MD, 20 mg at 04/06/25 0900 heparin 48391 units/250 mL (100 units/mL) in 0.45 % NaCl infusion, 18 Units/kg/hr, Intravenous, Titrated, Cherri Beatty, [facility], Last Rate: 24.1 mL/hr at 04/07/258, [...] With & Without Contrast - In process [[id number]] Resulted: 04/07/25828 Updated: 04/07/25828 This result has not been signed. Information might be incomplete. MRI Tibia Fibula Right With & Without Contrast [[id number]] Collected: 04/04/252256 Updated: 04/04/253 Narrative: MRI TIBIA [...] represent a small area of phlegmonous change ([id number] image 10) measuring approximately 1.6 cm which [...] MD 04/04/2025 11:00 PM EDT Workstation ID: [id number] Impression: Right BKA stump cellulitis- s/p BKA with multiple surgical interventions with Known MRSA 05/09/2025. (Treated by ID in [place] Dr. Harris). Dr. Torres treated him with [...] Admin Instructions: Open Order & [facility] Electrolyte Replacement Protocol Algorithm to View Details [...] mg Daily 04/05/2025 -- Route: Oral heparin 73074 units/250 mL (100 units/mL) in 0.45 % [...] Admin Instructions: Open Order & [facility] Electrolyte Replacement Protocol Algorithm to View Details [...] collection is developing. N.p.o. beginningat 9 AM. Ssuhil Dean Jr, MD 04/07/25 06:07 EDT * Cherri Beatty [facility] - 04/06/2025 1:47 PM EDT [...] from the original note were not included. [facility] Medicine Services PROGRESS NOTE Patient [...] MD 04/04/2025 11:00 PM EDT Workstation ID: [id number] I have personally reviewed the therapy plans: [...] mg Daily 04/05/2025 -- Route: Oral heparin 80003 units/250 mL (100 units/mL) in 0.45 % [...] Admin Instructions: Open Order & [facility] Electrolyte Replacement Protocol Algorithm to View Details [...] Admin Instructions: Open Order & [facility] Electrolyte Replacement Protocol Algorithm to View Details [...] INFECTIOUS DISEASE follow up. Won Dennis 1980 [id number] Date of Consult: 04/06/2025 Admission Date: 04/04/2025 [...] him to seek treatment at [facility]. He is known to Dr. Dean. He [...] MD, 20 mg at 04/06/25 0900 heparin 86006 units/250 mL (100 units/mL) in 0.45 % NaCl infusion, 18 Units/kg/hr, Intravenous, Titrated, Cherri Beatty [facility], Last Rate: 24.1 mL/hr at [...] Tibia Fibula Right With & Without Contrast [[id number]] Collected: 04/04/252256 Updated: 04/04/252302 Narrative: MRI TIBIA [...] MD 04/04/2025 11:00 PM EDT Workstation ID: [id number] Impression: Right BKA stump cellulitis- s/p BKA with multiple surgical interventions with Known MRSA 05/09/2025. (Treated by ID in [place] Dr. Harris). Dr. Torres treated him with [...] from the original note were not included. [facility] Medicine Services PROGRESS NOTE Patient [...] MD 04/04/2025 11:00 PM EDT Workstation ID: [id number] I have personally reviewed the therapy plans: [...] from the original note were not included. [facility] Medicine Services HISTORY AND PHYSICAL [...] MD 04/04/2025 11:00 PM EDT Workstation ID: [id number] Assessment & Plan Assessment & Plan Won [...] 4FR PICC placed by Rhoda Bonner RN [facility], tip verified by 3CG see LDA. * Sushil Dean Jr., MD - 04/05/2025 8:07 AM EDTAssociated Order(s): IP CONSULT TO ORTHOPEDIC SURGERY [facility], [facility] [address] [address] Orthopedic Consult Patient: Won Dennis Date of [...] was evaluated in the emergency department in [place], was discharged with instructions for follow-up. He [...] 04/03/2025 Morning Lactobacillus-Inulin ([facility]) capsule Take 200 mg by mouth Daily. [...] MD 04/04/2025 11:00 PM EDT Workstation ID: [id number] Assessment: Right BKA infection 44-year-old male with [...] DISEASE CONSULT/INITIAL HOSPITAL VISIT Won Dennis 1980 [id number] Date of Consult: 04/05/2025 Admission Date: 04/04/2025 [...] him to seek treatment at [facility]. He is known to Dr. Dean. He [...] Leonora Shepherd MD, 40 mg at 04/04/25 9744 sennosides-docusate (PERICOLACE) 8.6-50 MG per tablet 2 [...] MD, 20 mg at 04/05/25 09 heparin 40121 units/250 mL (100 units/mL) in 0.45 % NaCl infusion, 11 Units/kg/hr, Intravenous, Titrated, nUa Perla, PharmD, Last Rate: 14.74 mL/hr at [...] Leonora Shepherd MD, 10 mg at 04/04/25 4389 Pharmacy to Dose Heparin, , Not Applicable, [...] Tibia Fibula Right With & Without Contrast [[id number]] Collected: 04/04/252256 Updated: 04/04/252302 Narrative: MRI TIBIA [...] represent a small area of phlegmonous change (fowgou55 image 10) measuring approximately 1.6 cm which [...] MD 04/04/2025 11:00 PM EDT Workstation ID: [id number] Impression: Right BKA stump cellulitis- s/p BKA with multiple surgical interventions with Known MRSA 05/09/2025. (Treated by ID in [place] Dr. Harris). Dr. Torres treated him with [...] Medication Review/Management: medications reviewed Taken 04/08/20251942 by Bbo Rosenberg RN Sensory Stimulation Regulation: auditory stimulation [...] Jr., MD - 04/08/2025 3:51 PM EDT [facility] OPERATIVE REPORT PATIENT NAME: Won Dennis DATE OF : 1980 PREOP DIAGNOSIS: Right Right below-knee amputation infection POSTOP DIAGNOSIS: Same. PROCEDURE: Right Right 90172: Secondary closure below-knee amputation SURGEON: Sushil Dean MD OPERATIVE TEAM: Laboratory Technical Specialist: Susi Grullon RN Scrub Person: Mary Paredes Scrub Person Extra: Hortencia Toribio Other: Katt Gotti RN; Charis Neville RN ANESTHETIST: Anesthesiologist: Ulises Hoffman MD ROLLER EMBOSSER: Stan Casillas CRNA Student Nurse Home Health Nurse: Karol Albert SRNA ANESTHESIA: Choice ESTIMATED BLOOD [...] CULTURE (Canceled) Sushil Dean Jr., MD 04/08/25 8157 Description: RIGHT LEG DEEP WOUND FOR CULTURE [...] PM EDT [facility], [place] [address] OPERATIVE REPORT PATIENT NAME: Won Dennis DATE OF : 1980 PREOP DIAGNOSIS: Right Right below knee amputation stump infection POSTOP DIAGNOSIS: Same. PROCEDURE: Right Right 23312: Incision and drainage of surgical site infection 41084: Debridement of skin, subcutaneous tissue, muscle 65044: Wound vacuum-assisted closure SURGEON: Sushil Dean MD OPERATIVE TEAM: Laboratory Technical Specialist: Anum Sanchez RN Scrub Person: Hortencia Toribio; Gerald Ivey VARNISH REMOVER: Anesthesiologist: Luci Alonso DO ANESTHESIA: General ESTIMATED [...] of the area. seen at [facility] yesterday for CT and US, here for [...] this chart in the absence of a gastroenterologist. No orders to display RADIOLOGY: [x] Radiologist's [...] is discharging home with outpatient infusion at [facility]. He has an appointment with [facility] at 8:00 am tomorrow. [...] to get IV ABX at home with [facility]; however, Medicaid lapsed on 04/08. DEBRA was unaware until this morning that Medicaid has lapsed. Patient explained that he has Medicare A and B. CM spoke with KELLEE and given themhis Medicare number [id number], she sent it to Admission. DEBRA spoke with Kerri, with [facility], and explained that he had [...] changes and lab work. DEBRA called [facility] Outpatient infusion center they can accept patient and start him. He is known for their facility. The Facility will need to run it through his insurance first. CM faxed the orders over to [facility] at [phone]. CM will follow up with them tomorrow at [facility] to make sure they [...] 04/09/2025 2:51 PM EDT Continued Stay Note [facility] Patient Name: Won Dennis Today's Date: 04/09/2025 Admit Date: 04/04/2025 Plan: Home Discharge Plan Row Name 04/09/25 1311 Plan Plan Home Patient/Family in Agreement with Plan yes Plan Comments CM spoke with patient at bedside today. Wheelchair from [employer] is at bedside. Patient getting PICC line [...] note were not included. Discharge Planning Assessment [facility] Patient Name: Won Dennis Today's [...] family Patient/Family Anticipated Services at Transition case workerinformation manager Anticipated family or friend will provide Discharge Needs Assessment Equipment Currently Used at Home glucometer;shower chair;pulse ox;bp cuff;prosthesis;crutches Equipment Needed After Discharge none Discharge Plan Row Name 04/07/25 1144 Plan Plan Home Patient/Family in Agreement with Plan yes Plan Comments CM spoke with patient at bedside today. Patient lives with and his 5 kids in [facility]. 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 He has walker, cane, shower chair, and crutches. He requested a wheelchair for home. CM will order wheelchair through [facility]. He is not current with home health services. PCP is Dr. Jordan. Insurance is [employer] ID. Patient discharge plan is home with priavte transport. CM will follow for any discharge needs. Final Discharge Disposition Code 01 - home or self-care Continued Care and Services - Admitted Since 04/04/2025 No active coordination exists. Demographic Summary Row Name 04/07/25 1143 General Information Arrived From hospital Preferred Language Ecuadorean Functional Status Row Name 04/07/25 1143 Functional [...] CBC Auto Differential (04/11/2025 3:40 AM EDT) [facility] WBC 7.87 3.40 - 10.80 10*3/mm3 04/11/2025 4:02 AM EDT [facility] RBC 4.70 4.14 - 5.80 10*6/mm3 04/11/2025 4:02 AM [facility] Hemoglobin 12.8(L) 13.0 - 17.7 g/dL 04/11/2025 4:02 AM [facility] Hematocrit 40.5 37.5 - 51.0 % 04/11/2025 4:02 AM [facility] MCV 86.2 79.0 - 97.0 fL 04/[facility]25 [facility] MCH 27.2 26.6 - 33.0 pg 04/11/2025 4:02 AM [facility] MCHC 31.6 31.5 - 35.7 g/dL 04/11/2025 4:02 AM [facility] RDW 12.9 12.3 - 15.4 % 04/11/2025 4:02 AM [facility] RDW-SD 40.5 37.0 - 54.0 fl 04/11/2025 4:02 AM [facility] MPV 9.2 6.0 - 12.0 fL 04/11/2025 4:02 AM [facility] Platelets 267 140 - 450 10*3/mm3 04/11/2025 4:02 AM [facility] Neutrophil % 59.5 42.7 - 76.0 % 04/11/2025 4:02 AM [facility] Lymphocyte % 26.3 19.6 - 45.3 % 04/11/2025 4:02 AM [facility] Monocyte % 9.3 5.0 - 12.0 % 04/11/2025 4:02 AM [facility] Eosinophil % 4.1 0.3 - 6.2 % 04/11/2025 4:[facility] Basophil % 0.4 0.0 - 1.5 % 04/11/2025 4:02 [facility] Immature Grans % 0.4 0.0 - 0.5 % 04/11/2025 4:02 AM [facility] Neutrophils, Absolute 4.69 1.70 - 7.00 10*3/mm3 04/11/2025 4:02 AM EDT [facility] Lymphocytes, Absolute 2.07 0.70 - 3.10 10*3/mm3 04/11/2025 4:02 AM EDT [facility] Monocytes, Absolute 0.73 0.10 - 0.90 10*3/mm3 04/11/2025 4:02 AM EDT [facility] Eosinophils, Absolute 0.32 0.00 - 0.40 10*3/mm3 04/11/2025 4:02 AM EDT [facility] Basophils, Absolute 0.03 0.00 - 0.20 10*3/mm3 04/11/2025 4:02 AM EDT [facility] Immature Grans, Absolute 0.03 0.00 - 0.05 10*3/mm3 04/11/2025 4:02 AM EDT [facility] nRBC 0.0 0.0 - 0.2 /100 WBC 04/11/2025 4:02 AM EDT [facility] Blood Venipuncture / Unknown 04/11/2025 3:40 AM EDT 04/11/2025 3:59 AM EDT us Sushil Dean Jr., MD LAB BLOOD ORDERABLES Fi nal Result [facility]
[address] [place] [address], * (ABNORMAL) Comprehensive Metabolic Panel (04/11/2025 3:40 AM EDT) [facility] Signature Glucose 108(H) 65 - 99 mg/dL 04/11/2025 4:19 AM EDT [facility] BUN 12.5 6.0 - 20.0 mg/dL 04/11/2025 4:19 AM EDT [facility] Creatinine 0.68(L) 0.76 - 1.27 mg/dL 04/11/2025 4:19 AM [facility] Sodium 140 136 - 145 mmol/L 04/11/2025 4:19 AM [facility] Potassium 3.8 3.5 - 5.2 mmol/L 04/11/2025 4:19 AM [facility] Chloride 105 98 - 107 mmol/L 04/11/2025 4:19 AM [facility] CO2 28.2 22.0 - 29.0 mmol/L 04/11/2025 4:19 AM [facility] Calcium 8.2(L) 8.6 - 10.5 mg/dL 04/11/2025 4:19 AM [facility] Total Protein 6.1 6.0 - 8.5 g/dL 04/11/2025 4:19 AM [facility] Albumin 3.1(L) 3.5 - 5.2 g/dL 04/11/2025 4:19 AM [facility] ALT (SGPT) 52(H) 1 - 41 U/L 04/11/2025 4:19 AM [facility] AST (SGOT) 40 1 - 40 U/L 04/11/2025 4:19 AM [facility] Alkaline Phosphatase 99 39 - 117 U/L 04/11/2025 4:19 AM [facility] Total Bilirubin 0.2 0.0 - 1.2 mg/dL 04/11/2025 4:19 AM [facility] Globulin 3.0 gm/dL 04/11/2025 4:19 AM [facility] Comment:Calculated Result A/G Ratio 1.0 g/dL 04/11/2025 4:19 AM [facility] BUN/Creatinine Ratio 18.4 7.0 - 25.0 04/11/2025 4:19 AM [facility] Anion Gap 6.8 5.0 - 15.0 mmol/L 04/11/2025 4:19 AM [facility] eGFR 117.5 >60.0 mL/min/1.7 3 04/11/2025 4:19 AM EDT [facility] Blood Venipuncture / Unknown 04/11/2025 3:40 [...] include race as a factor Rosario Hill VITICULTURIST LAB BLOOD ORDERABLES Final Result [facility]
[address] [place] [address], * (ABNORMAL) CBC Auto Differential (04/10/2025 3:46 AM EDT) WBC 9.60 3.40 - 10.80 10*3/mm3 04/10/2025 3:56 AM EDT [facility] RBC 4.67 4.14 - 5.80 10*6/mm3 04/10/2025 3:56 AM EDT [facility] Hemoglobin 12.9(L) 13.0 - 17.7 g/dL 04/10/2025 3:56 AM EDT [facility] Hematocrit 40.1 37.5 - 51.0 % 04/10/2025 3:56 AM EDT [facility] MCV 85.9 79.0 - 97.0 fL 04/10/2025 3:56 AM EDT [facility] MCH 27.6 26.6 - 33.0 pg 04/10/2025 3:56 AM EDT [facility] MCHC 32.2 31.5 - 35.7 g/dL 04/10/2025 3:56 [facility] RDW 12.9 12.3 - 15.4 % 04/10/2025 3:56 AM [facility] RDW-SD 40.5 37.0 - 54.0 fl 04/10/2025 3:56 AM [facility] MPV 9.5 6.0 - 12.0 fL 04/10/2025 3:56 AM EDT [facility] Platelets 227 140 - 450 10*3/mm3 04/10/2025 3:56 AM [facility] Neutrophil % 59.1 42.7 - 76.0 % 04/10/2025 3:56 AM [facility] Lymphocyte % 29.0 19.6 - 45.3 % 04/10/2025 3:56 AM [facility] Monocyte % 8.1 5.0 - 12.0 % 04/10/2025 3:56 [facility] Eosinophil % 3.2 0.3 - 6.2 % 04/10/2025 3:56 AM [facility] Basophil % 0.4 0.0 - 1.5 % 04/10/2025 3:56 AM [facility] Immature Grans % 0.2 0.0 - 0.5 % 04/10/2025 3:56 AM [facility] Neutrophils, Absolute 5.67 1.70 [...] 10*3/mm3 04/10/2025 3:56 AM EDT [facility] Immature Grans, Absolute 0.02 0.00 - 0.05 10*3/mm3 04/10/2025 3:56 AM EDT [facility] nRBC 0.0 0.0 - 0.2 /100 WBC 04/10/2025 3:56 AM EDT [facility] Blood Venipuncture / Unknown 04/10/2025 3:46 AM EDT 04/10/2025 3:53 AM EDT us Jason Álvarez DO LAB BLOOD ORDERABLES Final Resul t [facility]
[address] [place] [address], * (ABNORMAL) Basic Metabolic Panel (04/10/2025 3:46 AM EDT) Glucose 125(H) 65 - 99 mg/dL 04/10/2025 4:20 AM EDT [facility] BUN 15.9 6.0 - 20.0 mg/dL 04/10/2025 4:20 AM EDT [facility] Creatinine 0.77 0.76 - 1.27 mg/dL 04/10/2025 4:20 AM EDT [facility] Sodium 137 136 - 145 mmol/L 04/10/2025 4:20 AM EDT [facility] Potassium 3.9 3.5 - 5.2 mmol/L 04/10/2025 4:20 AM EDT [facility] Chloride 102 98 - 107 mmol/L 04/10/2025 4:20 AM EDT [facility] CO2 26.9 22.0 - 29.0 mmol/L 04/10/2025 4:20 AM EDT [facility] Calcium 7.9(L) 8.6 - 10.5 mg/dL 04/10/2025 4:20 AM EDT [facility] BUN/Creatinine Ratio 20.6 7.0 - 25.0 04/10/2025 4:20 AM EDT [facility] Anion Gap 8.1 5.0 - 15.0 mmol/L 04/10/2025 4:20 AM EDT [facility] eGFR 113.2 >60.0 mL/min/1.7 3 04/10/2025 4:20 AM EDT [facility] Blood Venipuncture / Unknown 04/10/2025 3:46 AM EDT 04/10/2025 3:52 AM EDT Narrative [facility] - 04/10/2025 4:20 AM EDT GFR [...] not include race as a factor Jason Álvraez DO LAB BLOOD ORDERABLES Final Resul t [facility]
[address] [place] [address], * Heparin Anti-Xa (04/10/2025 3:46 AM EDT) Heparin Anti-Xa (UFH) 0.35 0.30 - 0.70 IU/ml 04/10/2025 4:23 AM EDT [facility] Blood Venipuncture / Unknown 04/10/2025 3:46 AM EDT 04/10/2025 3:53 AM EDT Larisa Hamilton [facility] LAB BLOOD ORDERABLES Final R esult [facility]
[address] [place] [address], * Heparin Anti-Xa (04/09/2025 10:05 AM EDT) Pathologist [facility] Heparin Anti-Xa (UFH) 0.36 0.30 - 0.70 IU/ml 04/09/2025 11:12 AM EDT [facility] Blood Venipuncture / Unknown 04/09/2025 10:05 AM EDT 04/09/2025 10:47 AM EDT Larisa Hamilton [facility] LAB BLOOD ORDERABLES Final R esult [facility]
[address] [place] [address], * (ABNORMAL) CBC Auto Differential (04/09/2025 4:18 AM EDT) Pathologist [facility] WBC 11.00(H) 3.40 - 10.80 10*3/mm3 04/09/2025 4:50 AM EDT [facility] RBC 4.70 4.14 - 5.80 10*6/mm3 04/09/2025 4:50 AM EDT [facility] Hemoglobin 13.0 13.0 - 17.7 g/dL 04/09/2025 4:50 AM EDT [facility] Hematocrit 40.4 37.5 - 51.0 % 04/09/2025 4:50 AM EDT [facility] MCV 86.0 79.0 - 97.0 fL 04/09/2025 4:50 AM EDT [facility] MCH 27.7 26.6 - 33.0 pg 04/09/2025 4:50 AM EDT [facility] MCHC 32.2 31.5 - 35.7 g/dL 04/09/2025 4:50 AM EDT [facility] RDW 12.8 12.3 - 15.4 % 04/09/2025 4:50 AM [facility] RDW-SD 39.9 37.0 - 54.0 fl 04/09/2025 4:50 AM [facility] MPV 10.0 6.0 - 12.0 fL 04/09/2025 4:50 AM [facility] Platelets 211 140 - 450 10*3/mm3 04/09/2025 4:[facility] Neutrophil % 74.8 42.7 - 76.0 % 04/09/2025 4:50 AM [facility] Lymphocyte % 15.4(L) 19.6 - 45.3 % 04/09/2025 4:50 AM [facility] Monocyte % 8.5 5.0 - 12.0 % 04/09/2025 4:50 AM [facility] Eosinophil % 0.6 0.3 - 6.2 % 04/09/2025 4:50 AM [facility] Basophil % 0.4 0.0 - 1.5 % 04/09/2025 4:50 AM [facility] Immature Grans % 0.3 0.0 - 0.5 % 04/09/2025 4:50 AM [facility] Neutrophils, Absolute 8.23(H) 1.70 - 7.00 10*3/mm3 04/09/2025 4:50 AM [facility] Lymphocytes, Absolute 1.69 0.70 - 3.10 10*3/mm3 04/09/2025 4:50 AM [facility] Monocytes, Absolute 0.94(H) 0.10 - 0.90 10*3/mm3 04/09/2025 4:50 [facility] Eosinophils, Absolute 0.07 0.00 - 0.40 10*3/mm3 04/09/2025 4:50 AM [facility] Basophils, Absolute 0.04 0.00 - 0.20 10*3/mm3 04/09/2025 4:50 AM [facility] Immature Grans, Absolute 0.03 0.00 - 0.05 10*3/mm3 04/09/2025 4:50 AM EDT [facility] nRBC 0.0 0.0 - 0.2 /100 WBC 04/09/2025 4:50 AM EDT [facility] Blood Venipuncture / Unknown 04/09/2025 4:18 AM EDT 04/09/2025 4:31 AM EDT Sushil Dean Jr., MD LAB BLOOD ORDERABLES Fi nal Result [facility]
[address] [place] [address], * Heparin Anti-Xa (04/09/2025 4:18 AM EDT) Heparin Anti-Xa (UFH) 0.41 0.30 - 0.70 IU/ml 04/09/2025 4:53 AM EDT [facility] Blood Venipuncture / Unknown 04/09/2025 4:18 AM EDT 04/09/2025 4:31 AM EDT Una LundbergD LAB BLOOD ORDERABLES Final R esult [facility]
[address] [place] [address], * (ABNORMAL) Basic Metabolic Panel (04/09/2025 4:18 AM EDT) Glucose 147(H) 65 - 99 mg/dL 04/09/2025 5:33 AM EDT [facility] BUN 23.0(H) 6.0 - 20.0 mg/dL 04/09/2025 5:33 AM EDT [facility] Creatinine 1.15 0.76 - 1.27 mg/dL 04/09/2025 5:33 AM EDT [facility] Sodium 135(L) 136 - 145 mmol/L 04/09/2025 5:33 AM EDT [facility] Potassium 4.2 3.5 - 5.2 mmol/L 04/09/2025 5:33 AM EDT [facility] Chloride 100 98 - 107 mmol/L 04/09/2025 5:33 AM EDT [facility] CO2 26.0 22.0 - 29.0 mmol/L 04/09/2025 5:33 AM EDT [facility] Calcium 8.2(L) 8.6 - 10.5 mg/dL 04/09/2025 5:33 AM EDT [facility] BUN/Creatinine Ratio 20.0 7.0 - 25.0 04/09/2025 5:33 AM EDT [facility] Anion Gap 9.0 5.0 - 15.0 mmol/L 04/09/2025 5:33 AM EDT [facility] eGFR 80.5 >60.0 mL/min/1.7 3 04/09/2025 5:33 AM EDT [facility] Blood Venipuncture / Unknown 04/09/2025 4:18 AM EDT 04/09/2025 4:29 AM EDT [facility] - 04/09/2025 5:33 [...] BLOOD ORDERABLES Fi nal Result [facility]
[address] [place] [address], * Wound Culture - Swab, Leg, Right (04/08/2025 3:40 PM EDT) Wound Culture No growth at 3 days ALIZA 04/11/2025 10:40 AM EDT [facility] Gram Stain Few (2+) WBCs seen 04/11/2025 10:40 AM EDT [facility] Gram Stain No organisms seen 04/11/2025 10:40 AM EDT [facility] Swab Structure of right lower limb / Unknown 04/08/2025 3:40 PM EDT 04/08/2025 8:05 PM EDT Sushil Dean Jr., MD MICROBIOLOGY - GENERAL ORDERABLES Final Result Performing Organization Address City/[facility]/ZIP Co de Phone Number [facility]
[address] [place] [address], [facility]
[address] [place] [address], * Anaerobic Culture - Swab, Leg, Right (04/08/2025 3:40 PM EDT) Pathologist [facility] Anaerobic Culture No anaerobes isolated at 5 days ALIZA 04/13/2025 7:24 AM EDT [facility] Swab Structure of right lower limb / Unknown 04/08/2025 3:40 PM EDT 04/08/2025 8:05 PM EDT Sushil Dean Jr., MD MICROBIOLOGY - GENERAL ORDERABLES Final Result [facility]
[address] [place] [address], * Scan Slide (04/08/2025 8:41 AM EDT) RBC Morphology Normal Normal 04/08/2025 11:02 AM EDT [facility] WBC Morphology Normal Normal 04/08/2025 11:02 AM EDT [facility] Platelet Estimate Adequate Normal 04/08/2025 11:02 AM EDT [facility] Clumped Platelets Present None Seen 04/08/2025 11:02 AM EDT [facility] Blood Venipuncture / Unknown 04/08/2025 8:41 AM EDT 04/08/2025 9:10 AM EDT Una Minda PharmD LAB BLOOD ORDERABLES Final R esult [facility]
[address] [place] [address], * (ABNORMAL) CBC Auto Differential (04/08/2025 8:41 AM EDT) WBC 10.07 3.40 - 10.80 10*3/mm3 04/08/2025 11:02 AM EDT [facility] RBC 5.01 4.14 - 5.80 10*6/mm3 04/08/2025 11:02 AM EDT [facility] Hemoglobin 14.0 13.0 - 17.7 g/dL 04/08/2025 11:02 AM EDT [facility] Hematocrit 42.7 37.5 - 51.0 % 04/08/2025 11:02 AM EDT [facility] MCV 85.2 79.0 - 97.0 fL 04/08/2025 11:02 AM EDT [facility] MCH 27.9 26.6 - 33.0 pg 04/08/2025 11:02 AM EDT [facility] MCHC 32.8 31.5 - 35.7 g/dL 04/08/2025 11:02 AM EDT [facility] RDW 12.6 12.3 - 15.4 % 04/08/2025 11:02 AM EDT [facility] RDW-SD 38.9 37.0 - 54.0 fl 04/08/2025 11:02 AM [facility] MPV 11.0 6.0 - 12.0 fL 04/08/2025 11:02 AM [facility] Platelets 118(L) 140 - 450 10*3/mm3 04/08/2025 11:02 AM [facility] Neutrophil % 85.1(H) 42.7 - 76.0 % 04/08/2025 11:02 AM [facility] Lymphocyte % 9.3(L) 19.6 - 45.3 % 04/08/2025 11:02 AM [facility] Monocyte % 4.6(L) 5.0 - 12.0 % 04/08/2025 11:02 AM [facility] Eosinophil % 0.3 0.3 - 6.2 % 04/08/2025 11:02 AM [facility] Basophil % 0.2 0.0 - 1.5 % 04/08/2025 11:02 AM [facility] Immature Grans % 0.5 0.0 - 0.5 % 04/08/2025 11:02 AM [facility] Neutrophils, Absolute 8.57(H) 1.70 - 7.00 10*3/mm3 04/08/2025 11:02 AM [facility] Lymphocytes, Absolute 0.94 0.70 - 3.10 10*3/mm3 04/08/2025 11:02 AM [facility] Monocytes, Absolute 0.46 0.10 - 0.90 10*3/mm3 04/08/2025 11:02 AM [facility] Eosinophils, Absolute 0.03 0.00 - 0.40 10*3/mm3 04/08/2025 11:02 AM [facility] Basophils, Absolute 0.02 0.00 - 0.20 10*3/mm3 04/08/2025 11:02 AM [facility] Immature Grans, Absolute 0.05 0.00 - 0.05 10*3/mm3 04/08/2025 11:02 AM EDT [facility] nRBC 0.0 0.0 - 0.2 /100 WBC 04/08/2025 11:02 AM EDT [facility] Blood Venipuncture / Unknown 04/08/2025 8:41 AM EDT 04/08/2025 9:10 AM EDT Una Perla PharmD LAB BLOOD ORDERABLES Final R esult [facility]
[address] [place] [address], * (ABNORMAL) Basic Metabolic Panel (04/08/2025 8:41 AM EDT) Glucose 125(H) 65 - 99 mg/dL 04/08/2025 9:51 AM EDT [facility] BUN 13.2 6.0 - 20.0 mg/dL 04/08/2025 9:51 AM EDT [facility] Creatinine 0.69(L) 0.76 - 1.27 mg/dL 04/08/2025 9:51 AM EDT [facility] Sodium 136 136 - 145 mmol/L 04/08/2025 9:51 AM EDT [facility] Potassium 4.6 3.5 - 5.2 mmol/L 04/08/2025 9:51 AM EDT [facility] Chloride 102 98 - 107 mmol/L 04/08/2025 9:51 AM EDT [facility] CO2 23.5 22.0 - 29.0 mmol/L 04/08/2025 9:51 AM EDT [facility] Calcium 8.4(L) 8.6 - 10.5 mg/dL 04/08/2025 9:51 AM EDT [facility] BUN/Creatinine Ratio 19.1 7.0 - 25.0 04/08/2025 9:51 AM EDT [facility] Anion Gap 10.5 5.0 - 15.0 mmol/L 04/08/2025 9:51 AM EDT [facility] eGFR 117.0 >60.0 mL/min/1.7 3 04/08/2025 9:51 AM EDT [facility] Blood Venipuncture / Unknown 04/08/2025 8:41 AM EDT 04/08/2025 9:09 AM EDT Narrative [facility] - 04/08/2025 9:51 AM EDT GFR [...] Address City/[facility]/ZIP Co de Phone Number [facility]
[address] [place] [address], * Heparin Anti-Xa (04/08/2025 8:41 AM EDT) Heparin Anti-Xa (UFH) 0.33 0.30 - 0.70 IU/ml 04/08/2025 9:40 AM EDT [facility] Blood Venipuncture / Unknown 04/08/2025 8:41 AM EDT 04/08/2025 9:10 AM EDT us Sushil Dean Jr., MD LAB BLOOD ORDERABLES Fi nal Result [facility]
[address] [place] [address], * FL C Arm During Surgery (04/07/2025 9:32 PM EDT) Narrative SYSTEMGENERATED, DOCUMENTATION - 04/07/2025 9:38 PM EDT This procedure was auto-finalized with no dictation required. us Sushil Dean Jr., MD IMG FLUOROSCOPY ORDERAB LES Final Result * Wound Culture - Swab, Leg, Right (04/07/2025 9:14 PM EDT) Wound Culture No growth at 3 days ALIZA 04/11/2025 10:40 AM EDT [facility] Gram Stain Occasional WBCs seen 04/11/2025 10:40 AM EDT [facility] Gram Stain No organisms seen 04/11/2025 10:40 AM EDT [facility] Swab Structure of right lower limb / Unknown Collection / Unknown 04/07/2025 9:14 PM EDT 04/08/2025 4:36 AM EDT us Sushil Dean Jr., MD MICROBIOLOGY - GENERAL ORDERABLES Final Result Performing Organization Address City/[facility]/ZIP Co de Phone Number [facility]
[address] [place] [address], [facility]
[address] [place] [address], * Anaerobic Culture - Swab, Leg, Right (04/07/2025 9:14 PM EDT) Anaerobic Culture No anaerobes isolated at 5 days ALIZA 04/13/2025 7:21 AM EDT [facility] Swab Structure of right lower limb / Unknown Collection / Unknown 04/07/2025 9:14 PM EDT 04/08/2025 4:36 AM EDT us Sushil Dean Jr., MD MICROBIOLOGY - GENERAL ORDERABLES Final Result [facility]
[address] [place] [address], * Anaerobic Culture - Tissue, Leg (04/07/2025 9:13 PM EDT) Pathologist [facility] Anaerobic Culture No anaerobes isolated at 5 days ALIZA 04/13/2025 7:21 AM EDT [facility] Tissue Lower limb structure / Unknown Collection / Unknown 04/07/2025 9:13 PM EDT 04/08/2025 4:54 AM EDT Jason Álvarez DO MICROBIOLOGY - GENERAL ORDERABLE S Final Result [facility]
[address] [place] [address], * Tissue / Bone Culture - Tissue, Leg, Right (04/07/2025 9:13 PM EDT) [facility] Tissue Culture No growth at 3 days ALIZA 04/11/2025 10:36 AM EDT [facility] Gram Stain Rare (1+) WBCs seen 04/11/2025 10:36 AM EDT [facility] Gram Stain No organisms seen 04/11/2025 10:36 AM EDT [facility] Tissue Structure of right lower limb / Unknown 04/07/2025 9:13 PM EDT 04/08/2025 4:54 AM EDT Sushil Dean Jr., MD MICROBIOLOGY - GENERAL ORDERABLES Final Result [facility]
[address] [place] [address], [facility]
[address] [place] [address], * (ABNORMAL) Wound Culture - Swab, Leg, Right (04/07/2025 9:07 PM EDT) Pathologist [facility] Wound Culture Light growth (2+) Staphylococcus aureus, MRSA(A) ALIZA 04/10/2025 10:38 AM EDT [facility] Comment: Methicillin resistant Staphylococcus aureus, Patient may be an isolation risk. Gram Stain Few (2+) WBCs seen 04/10/2025 10:38 AM EDT [facility] Gram Stain No organisms seen 10:38 AM EDT [facility] MICROBIOLOGY - GENERAL ORDERABLES Final Result [facility]
[address] [place] [address], [place] [phone] [facility]
[address] [place] [address], [place] [phone] * Anaerobic Culture - Swab, Leg, Right (04/07/2025 9:07 PM EDT) Anaerobic Culture No anaerobes isolated at 5 days ALIZA 04/13/2025 7:21 AM EDT [facility] Swab Structure of right lower limb / Unknown Collection / Unknown 04/07/2025 9:07 PM EDT 04/08/2025 4:36 AM EDT us Sushil Dean Jr., MD MICROBIOLOGY - GENERAL ORDERABLES Final Result [facility]
[address] [place] [address], * Heparin Anti-Xa (04/07/2025 9:10 AM EDT) [facility] Heparin Anti-Xa (UFH) 0.30 0.30 - 0.70 IU/ml 04/07/2025 10:12 AM EDT [facility] Blood Venipuncture / Unknown 04/07/2025 9:10 AM EDT 04/07/2025 9:38 AM EDT Una Perla PharmD LAB BLOOD ORDERABLES Final R esult [facility]
[address] [place] [address], * (ABNORMAL) CBC Auto Differential (04/07/2025 9:10 AM EDT) [facility] WBC 8.63 3.40 - 10.80 10*3/mm3 04/07/2025 9:50 AM EDT [facility] RBC 5.23 4.14 - 5.80 10*6/mm3 04/07/2025 9:50 AM EDT [facility] Hemoglobin 14.7 13.0 - 17.7 g/dL 04/07/2025 9:50 AM EDT [facility] Hematocrit 44.8 37.5 - 51.0 % 04/07/2025 9:50 AM EDT [facility] MCV 85.7 79.0 - 97.0 fL 04/07/2025 9:50 AM EDT [facility] MCH 28.1 26.6 - 33.0 pg 04/07/2025 9:50 AM EDT [facility] MCHC 32.8 31.5 - 35.7 g/dL 04/07/2025 9:50 AM EDT [facility] RDW 12.8 12.3 - 15.4 % 04/07/2025 9:50 AM [facility] RDW-SD 39.9 37.0 - 54.0 fl 04/07/2025 9:50 AM [facility] MPV 10.8 6.0 - 12.0 fL 04/07/2025 9:50 AM [facility] Platelets 149 140 - 450 10*3/mm3 04/07/2025 9:50 AM [facility] Neutrophil % 66.7 42.7 - 76.0 % 04/07/2025 9:50 AM [facility] Lymphocyte % 20.5 19.6 - 45.3 % 04/07/2025 9:50 AM [facility] Monocyte % 9.8 5.0 - 12.0 % 04/07/2025 9:50 AM [facility] Eosinophil % 2.1 0.3 - 6.2 % 04/07/2025 9:50 AM [facility] Basophil % 0.3 0.0 - 1.5 % 04/07/2025 9:50 AM [facility] Immature Grans % 0.6(H) 0.0 - 0.5 % 04/07/2025 9:50 AM [facility] Neutrophils, Absolute 5.75 1.70 - 7.00 10*3/mm3 04/07/2025 9:50 AM [facility] Lymphocytes, Absolute 1.77 0.70 - 3.10 10*3/mm3 04/07/2025 9:50 AM [facility] Monocytes, Absolute 0.85 0.10 - 0.90 10*3/mm3 04/07/2025 9:50 AM [facility] Eosinophils, Absolute 0.18 0.00 - 0.40 10*3/mm3 04/07/2025 9:50 AM [facility] Basophils, Absolute 0.03 0.00 - 0.20 10*3/mm3 04/07/2025 9:50 AM [facility] Immature Grans, Absolute 0.05 0.00 - 0.05 10*3/mm3 04/07/2025 9:50 AM EDT [facility] nRBC 0.0 0.0 - 0.2 /100 WBC 04/07/2025 9:50 AM EDT [facility] Blood Venipuncture / Unknown 04/07/2025 9:10 AM EDT 04/07/2025 9:38 AM EDT Jasonalfonso Álvarez LAB BLOOD ORDERABLES Final Resul t [facility]
[address] [place] [address], * (ABNORMAL) Basic Metabolic Panel (04/07/2025 9:10 AM EDT) Glucose 112(H) 65 - 99 mg/dL 04/07/2025 10:19 AM EDT [facility] BUN 13.1 6.0 - 20.0 mg/dL 04/07/2025 10:19 AM EDT [facility] Creatinine 0.77 0.76 - 1.27 mg/dL 04/07/2025 10:19 AM EDT [facility] Sodium 139 136 - 145 mmol/L 04/07/2025 10:19 AM EDT [facility] Potassium 4.2 3.5 - 5.2 mmol/L 04/07/2025 10:19 AM EDT [facility] Comment:Specimen hemolyzed. Result may be falsely elevated. Chloride 105 98 - 107 mmol/L 04/07/2025 10:19 AM EDT [facility] CO2 24.8 22.0 - 29.0 mmol/L 04/07/2025 10:19 AM EDT [facility] Calcium 8.6 8.6 - 10.5 mg/dL 04/07/2025 10:19 AM EDT [facility] BUN/Creatinine Ratio 17.0 7.0 - 25.0 04/07/2025 10:19 AM EDT [facility] Anion Gap 9.2 5.0 - 15.0 mmol/L 04/07/2025 10:19 AM EDT [facility] eGFR 113.2 >60.0 mL/min/1.7 3 04/07/2025 10:19 AM EDT [facility] Blood Venipuncture / Unknown 04/07/2025 9:10 AM EDT 04/07/2025 9:38 AM EDT Narrative [facility] - 04/07/2025 10:19 AM EDT GFR [...] BLOOD ORDERABLES Final Resul t [facility]
[address] [place] [address], * MRI Tibia Fibula Right With & [...] [place] 04/07/2025 9:58 AM EDT Workstation ID: [id number] Narrative 04/07/2025 9:58 AM EDT MRI TIBIA [...] [place] 04/07/2025 9:58 AM EDT Workstation ID: [id number] Sushil Dean Jr., MD IM MRI ORDERABLES Mary Beth l Result * Heparin Anti-Xa (04/07/2025 1:42 AM EDT) [facility] Heparin Anti-Xa (UFH) 0.38 0.30 - 0.70 IU/ml 04/07/2025 2:14 AM EDT [facility] Blood Venipuncture / Unknown 04/07/2025 1:42 AM EDT 04/07/2025 1:54 AM EDT Chelsie Turpin [facility] LAB BLOOD ORDERABLES Final R esult [facility]
[address] [place] [address], * Heparin Anti-Xa (04/06/2025 7:16 PM EDT) [facility] Heparin Anti-Xa (UFH) 0.33 0.30 - 0.70 IU/ml 04/06/2025 7:50 PM EDT [facility] Blood Venipuncture / Unknown 04/06/2025 7:16 PM EDT 04/06/2025 7:35 PM EDT Cherri Beatty RP LAB BLOOD ORDERABLES Final Res ult Performing Organization Address City/[facility]/ZIP Co de Phone Number [facility]
[address] [place] [address], * Potassium (04/06/2025 7:16 PM EDT) Potassium 4.0 3.5 - 5.2 mmol/L 04/06/2025 7:53 PM EDT [facility] Blood Venipuncture / Unknown 04/06/2025 7:16 PM EDT 04/06/2025 7:35 PM EDT Jason Álvarez DO LAB BLOOD ORDERABLES Final Resul t Performing Organization Address [facility] de Phone Number [facility]
[address] [place] [address], * (ABNORMAL) Heparin Anti-Xa (04/06/2025 12:36 PM EDT) Heparin Anti-Xa (UFH) 0.24(L) 0.30 - 0.70 IU/ml 04/06/2025 1:23 PM EDT [facility] Blood Venipuncture / Unknown 04/06/2025 12:36 PM EDT 04/06/2025 1:07 PM EDT Una LundbergD LAB BLOOD ORDERABLES Final R esult Performing Organization Address [facility] Co de Phone Number [facility]
[address] [place] [address], * (ABNORMAL) Heparin Anti-Xa (04/06/2025 3:42 AM EDT) Heparin Anti-Xa (UFH) 0.25(L) 0.30 - 0.70 IU/ml 04/06/2025 5:30 AM EDT [facility] Blood Venipuncture / Unknown 04/06/2025 3:42 AM EDT 04/06/2025 4:59 AM EDT Chelsie Turpin [facility] LAB BLOOD ORDERABLES Final R esult [facility]
[address] [place] [address], * (ABNORMAL) Basic Metabolic Panel (04/06/2025 3:42 AM EDT) Pathologist [facility] Glucose 94 65 - 99 mg/dL 04/06/2025 5:59 AM EDT [facility] BUN 12.8 6.0 - 20.0 mg/dL 04/06/2025 5:59 AM EDT [facility] Creatinine 0.80 0.76 - 1.27 mg/dL 04/06/2025 5:59 AM EDT [facility] Sodium 138 136 - 145 mmol/L 04/06/2025 5:59 AM EDT [facility] Potassium 3.6 3.5 - 5.2 mmol/L 04/06/2025 5:59 AM EDT [facility] Chloride 103 98 - 107 mmol/L 04/06/2025 5:59 AM EDT [facility] CO2 24.2 22.0 - 29.0 mmol/L 04/06/2025 5:59 AM EDT [facility] Calcium 8.0(L) 8.6 - 10.5 mg/dL 04/06/2025 5:59 AM EDT [facility] BUN/Creatinine Ratio 16.0 7.0 - 25.0 04/06/2025 5:59 AM EDT [facility] Anion Gap 10.8 5.0 - 15.0 mmol/L 04/06/2025 5:59 AM EDT [facility] eGFR 111.9 >60.0 mL/min/1.7 3 04/06/2025 5:59 AM EDT [facility] Blood Venipuncture / Unknown 04/06/2025 3:42 AM EDT 04/06/2025 5:20 AM EDT [facility] - 04/06/2025 5:59 [...] BLOOD ORDERABLES Final Resul t [facility]
[address] [place] [address], * (ABNORMAL) CBC Auto Differential (04/06/2025 3:41 AM EDT) WBC 10.86(H) 3.40 - 10.80 10*3/mm3 04/06/2025 5:04 AM EDT [facility] RBC 5.08 4.14 - 5.80 10*6/mm3 04/06/2025 5:04 AM EDT [facility] Hemoglobin 13.9 13.0 - 17.7 g/dL 04/06/2025 5:04 AM EDT [facility] Hematocrit 43.7 37.5 - 51.0 % 04/06/2025 5:04 AM EDT [facility] MCV 86.0 79.0 - 97.0 fL 04/06/2025 5:04 AM [facility] MCH 27.4 26.6 - 33.0 pg 04/06/2025 5:04 AM [facility] MCHC 31.8 31.5 - 35.7 g/dL 04/06/2025 5:04 AM [facility] RDW 12.8 12.3 - 15.4 % 04/06/2025 5:04 AM [facility] RDW-SD 40.0 37.0 - 54.0 fl 04/06/2025 5:04 AM [facility] MPV 11.7 6.0 - 12.0 fL 04/06/2025 5:04 AM [facility] Platelets 115(L) 140 - 450 10*3/mm3 04/06/2025 5:04 AM [facility] Neutrophil % 65.3 42.7 - 76.0 % 04/06/2025 5:04 AM [facility] Lymphocyte % 20.5 19.6 - 45.3 % 04/06/2025 5:04 AM [facility] Monocyte % 11.8 5.0 - 12.0 % 04/06/2025 5:04 AM [facility] Eosinophil % 1.8 0.3 - 6.2 % 04/06/2025 5:04 AM [facility] Basophil % 0.3 0.0 - 1.5 % 04/06/2025 5:04 AM [facility] Immature Grans % 0.3 0.0 - 0.5 % 04/06/2025 5:04 AM [facility] Neutrophils, Absolute 7.09(H) 1.70 - 7.00 10*3/mm3 04/06/2025 5:04 AM [facility] Lymphocytes, Absolute 2.23 0.70 - 3.10 10*3/mm3 04/06/2025 5:04 AM [facility] Monocytes, Absolute 1.28(H) 0.10 - 0.90 10*3/mm3 04/06/2025 5:04 AM EDT [facility] Eosinophils, Absolute 0.20 0.00 - 0.40 10*3/mm3 04/06/2025 5:04 AM EDT [facility] Basophils, Absolute 0.03 0.00 - 0.20 10*3/mm3 04/06/2025 5:04 AM EDT [facility] Immature Grans, Absolute 0.03 0.00 - 0.05 10*3/mm3 04/06/2025 5:04 AM EDT [facility] nRBC 0.0 0.0 - 0.2 /100 WBC 04/06/2025 5:04 AM EDT [facility] Blood Venipuncture / Unknown 04/06/2025 3:41 AM EDT 04/06/2025 4:58 AM EDT Jason Álvarez DO LAB BLOOD ORDERABLES Final Resul t Performing Organization Address City/[facility]/ZIP Co de Phone Number [facility]
[address] [place] [address], [place] [phone] * Heparin Anti-Xa (04/05/2025 8:43 PM EDT) [facility] Heparin Anti-Xa (UFH) 0.38 0.30 - 0.70 IU/ml 04/05/2025 9:09 PM EDT [facility] Blood Venipuncture / Unknown 04/05/2025 8:43 PM EDT 04/05/2025 8:55 PM EDT us Cherri Beatty [facility] LAB BLOOD ORDERABLES Final Res ult Performing Organization Address City/[facility]/ZIP Co de Phone Number [facility]
[address] [place] [address], [place] [phone] * CK (04/05/2025 12:15 PM EDT) Pathologist [facility] Creatine Kinase 140 20 - 200 U/L 04/05/2025 1:31 PM EDT [facility] Blood Venipuncture / Unknown 04/05/2025 12:15 PM EDT 04/05/2025 1:03 PM EDT Carlton Mead MD LAB BLOOD ORDERABLES Final R esult Performing Organization Address City/[facility]/ZIP Co de Phone Number [facility]
[address] [place] [address], * (ABNORMAL) Heparin Anti-Xa (04/05/2025 12:15 PM EDT) Heparin Anti-Xa (UFH) 0.17(L) 0.30 - 0.70 IU/ml 04/05/2025 1:21 PM EDT [facility] Blood Venipuncture / Unknown 04/05/2025 12:15 PM EDT 04/05/2025 1:04 PM EDT Una Perla PharmD LAB BLOOD ORDERABLES Final R esult [facility]
[address] [place] [address], * (ABNORMAL) aPTT (04/05/2025 3:54 AM EDT) PTT 35.3(L) 60.0 - 90.0 seconds 04/05/2025 4:31 AM EDT [facility] Blood Venipuncture / Unknown 04/05/2025 3:54 AM EDT 04/05/2025 4:15 AM EDT Narrative [facility] - 04/05/2025 4:31 AM EDT PTT = The equivalent PTT values for the therapeutic range of heparin levels at 0.3 to 0.5 U/ml are 60 to 70 seconds. Una Perla PharmD LAB BLOOD ORDERABLES Final R esult [facility]
[address] [place] [address], * Heparin Anti-Xa (04/05/2025 3:54 AM EDT) Pathologist [facility] Heparin Anti-Xa (UFH) 0.30 0.30 - 0.70 IU/ml 04/05/2025 4:32 AM EDT [facility] Blood Venipuncture / Unknown 04/05/2025 3:54 AM EDT 04/05/2025 4:15 AM EDT Una BlueleafD LAB BLOOD ORDERABLES Final R esult Performing Organization Address City/[facility]/ZIP Co de Phone Number [facility]
[address] [place] [address], * (ABNORMAL) CBC Auto Differential (04/05/2025 3:54 AM EDT) Pathologist [facility] WBC 11.18(H) 3.40 - 10.80 10*3/mm3 04/05/2025 4:20 AM EDT [facility] RBC 5.00 4.14 - 5.80 10*6/mm3 04/05/2025 4:20 AM EDT [facility] Hemoglobin 13.9 13.0 - 17.7 g/dL 04/05/2025 4:20 AM EDT [facility] Hematocrit 42.4 37.5 - 51.0 % 04/05/2025 4:20 AM EDT [facility] MCV 84.8 79.0 - 97.0 fL 04/05/2025 4:20 AM EDT [facility] MCH 27.8 26.6 - 33.0 pg 04/05/2025 4:20 AM EDT [facility] MCHC 32.8 31.5 - 35.7 g/dL 04/05/2025 4:20 AM [facility] RDW 12.9 12.3 - 15.4 % 04/05/2025 4:20 AM [facility] RDW-SD 39.7 37.0 - 54.0 fl 04/05/2025 4:20 AM [facility] MPV 10.2 6.0 - 12.0 fL 04/05/2025 4:20 AM [facility] Platelets 160 140 - 450 10*3/mm3 04/05/2025 4:20 AM [facility] Neutrophil % 73.5 42.7 - 76.0 % 04/05/2025 4:20 AM [facility] Lymphocyte % 14.0(L) 19.6 - 45.3 % 04/05/2025 4:20 AM [facility] Monocyte % 11.0 5.0 - 12.0 % 04/05/2025 4:20 AM [facility] Eosinophil % 0.8 0.3 - 6.2 % 04/05/2025 4:20 AM [facility] Basophil % 0.3 0.0 - 1.5 % 04/05/2025 4:20 AM [facility] Immature Grans % 0.4 0.0 - 0.5 % 04/05/2025 4:20 AM [facility] Neutrophils, Absolute 8.23(H) 1.70 - 7.00 10*3/mm3 04/05/2025 4:20 AM [facility] Lymphocytes, Absolute 1.56 0.70 - 3.10 10*3/mm3 04/05/2025 4:20 AM [facility] Monocytes, Absolute 1.23(H) 0.10 - 0.90 10*3/mm3 04/05/2025 4:20 AM [facility] Eosinophils, Absolute 0.09 0.00 - 0.40 10*3/mm3 04/05/2025 4:20 AM [facility] Basophils, Absolute 0.03 0.00 - 0.20 10*3/mm3 04/05/2025 4:20 AM EDT [facility] Immature Grans, Absolute 0.04 0.00 - 0.05 10*3/mm3 04/05/2025 4:20 AM EDT [facility] nRBC 0.0 0.0 - 0.2 /100 WBC 04/05/2025 4:20 AM EDT [facility] Blood Venipuncture / Unknown 04/05/2025 3:54 AM EDT 04/05/2025 4:16 AM EDT Una Perla PharmD LAB BLOOD ORDERABLES Final R esult [facility]
[address] [place] [address], * (ABNORMAL) Basic Metabolic Panel (04/05/2025 3:54 AM EDT) Glucose 152(H) 65 - 99 mg/dL 04/05/2025 4:40 AM EDT [facility] BUN 17.3 6.0 - 20.0 mg/dL 04/05/2025 4:40 AM EDT [facility] Creatinine 0.92 0.76 - 1.27 mg/dL 04/05/2025 4:40 AM EDT [facility] Sodium 136 136 - 145 mmol/L 04/05/2025 4:40 AM EDT [facility] Potassium 3.9 3.5 - 5.2 mmol/L 04/05/2025 4:40 AM EDT [facility] Chloride 103 98 - 107 mmol/L 04/05/2025 4:40 AM EDT [facility] CO2 24.0 22.0 - 29.0 mmol/L 04/05/2025 4:40 AM EDT [facility] Calcium 7.8(L) 8.6 - 10.5 mg/dL 04/05/2025 4:40 AM EDT [facility] BUN/Creatinine Ratio 18.8 7.0 - 25.0 04/05/2025 4:40 AM EDT [facility] Anion Gap 9.0 5.0 - 15.0 mmol/L 04/05/2025 4:40 AM EDT [facility] eGFR 105.2 >60.0 mL/min/1.7 3 04/05/2025 4:40 AM EDT [facility] Blood Venipuncture / Unknown 04/05/2025 3:54 [...] BLOOD ORDERABLES Final Re sult [facility]
[address] [place] [address], * (ABNORMAL) aPTT (04/05/2025 12:18 AM EDT) PTT 33.6(L) 60.0 - 90.0 seconds 04/05/2025 12:53 AM EDT [facility] Blood Venipuncture / Unknown 04/05/2025 12:18 AM EDT 04/05/2025 12:37 AM EDT [facility] - 04/05/2025 12:53 AM EDT PTT = The equivalent PTT values for the therapeutic range of heparin levels at 0.3 to 0.5 U/ml are 60 to 70 seconds. [employer] PharmD LAB BLOOD ORDERABLES Final R esult Performing Organization Address City/[facility]/ZIP Co de Phone Number [facility]
[address] [place] [address], * (ABNORMAL) Protime-INR (04/05/2025 12:18 AM EDT) Protime 15.9(H) 12.2 - 15.3 Seconds 04/05/2025 12:53 AM EDT [facility] INR 1.19(H) 0.89 - 1.12 04/05/2025 12:53 AM EDT [facility] Blood Venipuncture / Unknown 04/05/2025 12:18 AM EDT 04/05/2025 12:37 AM EDT [employer] PharmD LAB BLOOD ORDERABLES Final R esult Performing Organization Address [facility] Co de Phone Number [facility]
[address] [place] [address], * Heparin Anti-Xa (04/05/2025 12:18 AM EDT) Pathologist [facility] Heparin Anti-Xa ([facility]) 0.39 0.30 - 0.70 IU/ml 04/05/2025 12:54 AM EDT [facility] Blood Venipuncture / Unknown 04/05/2025 12:18 AM EDT 04/05/2025 12:37 AM EDT [facility] [employer] [facility] LAB BLOOD ORDERABLES Final R esult Performing Organization Address City/[facility]/ZIP Co de Phone Number [facility]
[address] [place] [address], * MRI Tibia Fibula Right With & [...] MD 04/04/2025 11:00 PM EDT Workstation ID: [id number] Narrative 04/04/2025 11:00 PM EDT MRI TIBIA [...] MD 04/04/2025 11:00 PM EDT Workstation ID: [id number] Leonora Shepherd MD IMG MRI ORDERABLES Final Resu lt * POC Creatinine (04/04/2025 2:49 PM EDT) Creatinine 1.10 0.60 - 1.30 mg/dL 04/07/2025 7:14 PM EDT [facility] Comment:Serial Number: [id number]: [id number] Venous Blood 04/04/2025 2:49 PM EDT 04/07/2025 7:14 PM EDT Jason Álvarez DO POINT OF CARE TEST ORDERABLES Fi nal Result [facility]
[address] [place] [address], * (ABNORMAL) CBC Auto Differential (04/04/2025 2:47 PM EDT) [facility] WBC 12.72(H) 3.40 - 10.80 10*3/mm3 04/04/2025 2:56 PM EDT [facility] RBC 5.64 4.14 - 5.80 10*6/mm3 04/04/2025 2:56 PM EDT [facility] Hemoglobin 15.3 13.0 - 17.7 g/dL 04/04/2025 2:56 PM EDT [facility] Hematocrit 47.9 37.5 - 51.0 % 04/04/2025 2:56 PM EDT [facility] MCV 84.9 79.0 - 97.0 fL 04/04/2025 2:56 PM EDT [facility] MCH 27.1 26.6 - 33.0 pg 04/04/2025 2:56 PM EDT [facility] MCHC 31.9 31.5 - 35.7 g/dL 04/04/2025 2:56 PM EDT [facility] RDW 13.1 12.3 - 15.4 % 04/04/2025 2:56 PM EDT [facility] RDW-SD 40.3 37.0 - 54.0 fl 04/04/2025 2:56 PM EDT [facility] MPV 9.4 6.0 - 12.0 fL 04/04/2025 2:56 PM EDT [facility] Platelets 232 140 - 450 10*3/mm3 04/04/2025 2:56 PM EDT [facility] Neutrophil % 74.9 42.7 - 76.0 % 04/04/2025 2:56 PM EDT [facility] Lymphocyte % 13.1(L) 19.6 - 45.3 % 04/04/2025 2:56 PM EDT [facility] Monocyte % 11.2 5.0 - 12.0 % 04/04/2025 2:56 PM EDT [facility] Eosinophil % 0.4 0.3 - 6.2 % 04/04/2025 2:56 PM EDT [facility] Basophil % 0.2 0.0 - 1.5 % 04/04/2025 2:56 PM EDT [facility] Immature Grans % 0.2 0.0 - 0.5 % 04/04/2025 2:56 PM EDT [facility] Neutrophils, Absolute 9.52(H) 1.70 - 7.00 10*3/mm3 04/04/2025 2:56 PM EDT [facility] Lymphocytes, Absolute 1.66 0.70 - 3.10 10*3/mm3 04/04/2025 2:56 PM EDT [facility] Monocytes, Absolute 1.43(H) 0.10 - 0.90 10*3/mm3 04/04/2025 2:56 PM EDT [facility] Eosinophils, Absolute 0.05 0.00 - 0.40 10*3/mm3 04/04/2025 2:56 PM EDT [facility] Basophils, Absolute 0.03 0.00 - 0.20 10*3/mm3 04/04/2025 2:56 PM EDT [facility] Immature Grans, Absolute 0.03 0.00 - 0.05 10*3/mm3 04/04/2025 2:56 PM EDT [facility] nRBC 0.0 0.0 - 0.2 /100 WBC 04/04/2025 2:56 PM EDT [facility] Blood Venipuncture / Unknown 04/04/2025 2:47 PM EDT 04/04/2025 2:52 PM EDT us Mario Crowley DO LAB BLOOD ORDERABLES Fin al Result [facility]
[address] [place] [address], * (ABNORMAL) C-reactive Protein (04/04/2025 2:47 PM EDT) C-Reactive Protein 8.57(H) 0.00 - 0.50 mg/dL 04/04/2025 3:26 PM EDT [facility] Blood Venipuncture / Unknown 04/04/2025 2:47 PM EDT 04/04/2025 2:52 PM EDT [facility] Fin al Result Performing Organization Address [facility] [facility]/ZIP Co de Phone Number [facility]
[address] [place] [address], * (ABNORMAL) Sedimentation Rate (04/04/2025 2:47 PM EDT) Pathologist [facility] Sed Rate 51(H) 0 - 15 mm/hr 04/04/2025 3:06 PM EDT [facility] Blood Venipuncture / Unknown 04/04/2025 2:47 PM EDT 04/04/2025 2:52 PM EDT [facility] BLOOD ORDERABLES Fin al Result Performing Organization Address City/[facility] Co de Phone Number [facility]
[address] [place] [address], * Comprehensive Metabolic Panel (04/04/2025 2:47 PM EDT) Pathologist [facility] Glucose 90 65 - 99 mg/dL 04/04/2025 3:26 PM EDT [facility] BUN 18.3 6.0 - 20.0 mg/dL 04/04/2025 3:26 PM EDT [facility] Creatinine 0.94 0.76 - 1.27 mg/dL 04/04/2025 3:26 PM EDT [facility] Sodium 136 136 - 145 mmol/L 04/04/2025 3:26 PM EDT [facility] Potassium 3.8 3.5 - 5.2 mmol/L 04/04/2025 3:26 PM EDT [facility] Chloride 100 98 - 107 mmol/L 04/04/2025 3:26 PM EDT [facility] CO2 25.3 22.0 - 29.0 mmol/L 04/04/2025 3:26 PM EDT [facility] Calcium 8.6 8.6 - 10.5 mg/dL 04/04/2025 3:26 PM T [facility] Total Protein 7.3 6.0 - 8.5 g/dL 04/04/2025 3:26 PM EDT [facility] Albumin 4.1 3.5 - 5.2 g/dL 04/04/2025 3:26 PM T [facility] ALT (SGPT) 26 1 - 41 U/L 04/04/2025 3:26 PM [facility] AST (SGOT) 25 1 - 40 U/L 04/04/2025 3:26 PM T [facility] Alkaline Phosphatase 106 39 - 117 U/L 04/04/2025 3:26 PM T [facility] Total Bilirubin 1.0 0.0 - 1.2 mg/dL 04/04/2025 3:26 PM T [facility] Globulin 3.2 gm/dL 04/04/2025 3:26 PM [facility] Comment:Calculated Result A/G Ratio 1.3 g/dL 04/04/2025 3:26 PM [facility] BUN/Creatinine Ratio 19.5 7.0 - 25.0 04/04/2025 3:26 PM [facility] Anion Gap 10.7 5.0 - 15.0 mmol/L 04/04/2025 3:26 PM [facility] eGFR 102.5 >60.0 mL/min/1.7 3 04/04/2025 3:26 PM [facility] Blood Venipuncture / Unknown 04/04/2025 2:47 PM EDT 04/04/2025 2:52 PM EDT [facility] - 04/04/2025 3:26 [...] BLOOD ORDERABLES Fin al Result [facility]
[address] [place] [address], documented in this encounter Visit Diagnoses Diagnosis [...] Driven Protocol Open Order & Select [facility] Electrolyte Replacement Protocol Algorithm to View Details [...] Driven Protocol Open Order & [facility] Electrolyte Replacement Protocol Algorithm to View Details [...] Salazar, KELL)1943 (Given - Provider: Anahy Marcelino, STICK ROLLER)2129 (Canceled Entry - Provider: Anahy Marcelino STICK ROLLER - Comment: previously given) 0837 (Given - [...] Hart RN) 0906 (Given - Provider: Shirley Hrat, RN) 1001 (Given - Provider: Marguerite Wakefield, [...] Continuous Medication Order 04/09/2025 04/10/2025 04/11/2025 heparin 61677 units/250 mL (100 units/mL) in 0.45 % [...] Provider: Alberto Dillon RN)1112 (Stopped - Provider: hSirley Hart RN - Comment: [Order ends at [...] Driven Protocol Open Order & [facility] Electrolyte Replacement Protocol Algorithm to View Details [...] documented as of this encounter Care Teams Insurance Application Investigator Relationship Specialty Start Date End Date Provider, [place] [address] PCP - General 05/09/23 documented as of this encounter
--- OUTSIDE RECORDS SUMMARY | 2025-04-07 20:36 | XMS_ITS | Encounter Summary ---
Author Organization [facility] Address [address] [place] [address] Care Team Providers Care Indoor Plant Technician Name Role Phone Provider, No Known Primary Care Provider Unavail able Reason for Visit * Auth/Cert Specialty Diagnoses / Procedures Referred By Bulmaro muniz Referred To Contact Diagnoses Right BKA infection Referral ID Status Reason Start Date Expiration Date Visits Re quested Visits Authorized [id number] 1 1 Encounter Details Date Type Department Care Team (Late st Contact Info) Description 04/07/2025 8:36 PM EDT Anesthesia Event [facility] OR [address] [place] [address] Luci Alonso DO [address] [place] [address] Anesthesia Record Procedure Summary Procedure Name Responsible [...] drink = 0.6 oz pur e alcohol) [facility] Utilities Answer Date Recorded In the past 12 months has [employer], gas, oil, or water [employer] threatened to shut off services in your [...] or training? Not on file Preferred Language Tunisian 04/07/2025 Sex and Gender Information Value Date [...] PACU on O2NC, breathing comfortably. Report to MANAGER PSYCHIATRY at bedside. VSS. * Anesthesia Procedure Notes [...] Musculoskeletal Abdominal Substance History - negative use DISTRIBUTION SPECIALIST Other ROS/Med Hx Other: Eliquis 04/04/25 Hgb 14.7 k 43.2 Factor 2 on eliquis +gerd Anesthesia Plan ASA 3 - emergent general Rapid sequence (Risks and benefits of general anesthesia discussed with patient (including [place], CVA, , recall,aspiration, oropharyngeal/dental damage), questions answered, agreeable to proceed. ) intravenous induction Anesthetic plan, risks, benefits, and alternatives have been provided, discussed and informed consent has been obtained with: patient. Plan discussed with NATIONAL PARK RANGER. CODE STATUS: Code Status (Patient has no [...] ETT AIRWAY (04/07/2025 8:44 PM EDT) Narrative uLci Alonso DO - 04/07/2025 8:44 PM EDT [...] documented as of this encounter Care Teams Indoor Plant Technician Relationship Specialty Start Date End Date Provider, No Known [facility] [place] [address] PCP - General 05/09/23 documented as of this encounter
--- OUTSIDE RECORDS SUMMARY | 2025-04-08 14:45 | XMS_ITS | Encounter Summary ---
[facility] Organization [facility] Address [address] [place] [address] Care Team Providers Care Infection Preventionist Name Role Phone Provider, No Known Primary Care Provider Unavail able Reason for Visit * Reason Comments Leg Swelling * Auth/Cert Specialty Diagnoses / Procedures Referred By Contac t Referred To Contact Diagnoses Right BKA infection Referral ID Status Reason Start Date Expiration Date Visits Re quested Visits Authorized [id number] 1 1 Encounter Details Date Type Department Care Team (Late st Contact Info) Description 04/08/2025 2:45 PM EDT - 04/08/2025 4:04 PM EDT Surgery [facility] OR [address] [place] [address] Sushil Dean Jr., MD [address] [place] [address] [address] [id number] LEG DEBRIDEMENT AND IRRIGATION Social History Tobacco Use Types Packs/Day Years Used Date Smoking Tobacco: Never Smokeless Tobacco: Never Tobacco Cessation:Counseling Given: Not Answered Alcohol Use Standard Drinks/Week Comments Not Currently 0 (1 standard drink = 0.6 oz pur e alcohol) [facility] Utilities Answer Date Recorded In the past 12 months has [employer], gas, oil, or water company threatened [...] or training? Not on file Preferred Language Bulgarian 04/07/2025 Sex and Gender Information Value Date [...] Risk Indicated 04/04/2025 2:25 PM EDT Cherri Girmm RN * [place] Suicide Severity Rating Scale (Screener/Recent Self-Report) [...] original note were not included. [facility] DISCHARGE SUMMARY Patient Name: Won [...] Date/Time Wound Culture - Swab, Leg, Right [[id number]] (Abnormal) (Susceptibility) Collected: 04/07/252106 Lab Status: Final [...] Units Date/Time FL C Arm During Surgery [[id number]] Resulted: 04/07/252137 Updated: 04/07/252137 Narrative: This procedure was auto-finalized with no dictation required. MRI Tibia Fibula Right With & Without Contrast [[id number]] Collected: 04/07/25 0938 Updated: 04/07/25 1001 Narrative: [...] Buenrostro 04/07/2025 9:58 AM EDT Workstation ID: [id number] MRI Tibia Fibula Right With & Without Contrast [[id number]] Collected: 04/04/252256 Updated: 04/04/252302 Narrative: MRI TIBIA [...] represent a small area of phlegmonous change (hffvuz49 image 10) measuring approximately 1.6 cm which [...] MD 04/04/2025 11:00 PM EDT Workstation ID: [id number] Pending Labs Order Current Status Fungus Culture [...] Male) Date of 1980 Social Security Number [id number] [place] [address] [place] [address] Restorationist Unknown Marital Status Unknown Admission Date 04/04/2025 Admission Type Emergency Admitting Provider Jadyn Richardson DO Attending Provider Jadyn Richardson DO Department, Room/Bed [facility] 5G, S565/1 Discharge Date Discharge Disposition Discharge Destination Attending Provider: Jadyn Richardson DO Allergies: Ceftin [Cefuroxime], Keflex [Cephalexin], Latex Isolation: None Infection: MRSA (05/11/23) Code Status: CPR Ht: 180.3 cm (71 ) Wt: 134 kg (295 lb) Admission Cmt: None 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 [address] Subscriber Name Subscriber Date Member ID WON DENNIS 1980 [id number] Emergency Contacts Child And Adolescent Therapist (Rel.) Home Phone Work Phone Mobile Phone Avril Dennis (Spouse) -- -- [phone] Robert Hackett (Relative) -- -- [phone] [facility] 5G [address] [facility] [address] Patient: ROOM: [facility] Won Dennis [address] [facility] [place] [address] : 1980 SSN: [id number] Sex: M PCP: Provider, No Known Emergency Contact Information Name Relation Home Work Mobile Avril Dennis Spouse [phone] Other Contacts Name Relation Home Work Mobile Robert Hackett Relative [phone] INSURANCE PAYOR PLAN GROUP # SUBSCRIBER ID Primary: Secondary: MEDICARE [place] [id number] Admitting Diagnosis: 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] Order Date: Apr 09, 2025 Case Management Gasateria Attendant Consult (Order ID: [id number]) Diagnosis: Priority: Routine Expected Date: Expiration Date: [...] INFECTIOUS DISEASE Progress Note Won Dennis 1980 [id number] Date of Consult: 04/10/2025 Admission Date: 04/04/2025 [...] Jr., MD, 20 mg at 04/09/25906 heparin 28712 units/250 mL (100 units/mL) in 0.45 % [...] mg/500 mL 0.9% NS IVPB ([facility]) Ordering Provider: Mario Crowley, DO 20 mg/kg [...] Units Date/Time FL C Arm During Surgery [[id number]] Resulted: 04/07/252137 Updated: 04/07/252137 Narrative: This procedure was auto-finalized with no dictation required. MRI Tibia Fibula Right With & Without Contrast [[id number]] Collected: 04/07/2538 Updated: 04/07/25 1001 Narrative: MRI [...] Buenrostro 04/07/2025 9:58 AM EDT Workstation ID: [id number] Impression: Recurrent Right BKA stump abscess/cellulitis- this [...] Time: 04/10/251323 Signed Expand All [facility] Medicine Services PROGRESS NOTE Patient Name: [...] Date/Time Wound Culture - Swab, Leg, Right [[id number]] (Abnormal) (Susceptibility) Collected: 04/07/252106 Lab Status: Final [...] Name 04/06/25 1143 Sit-Stand Transfer Sit-Stand [place] (Transfers) modified independence - Comment, (Sit-Stand Transfer) Pt stood from recliner. Not holding onto walker, pt able to pull his pants up while balancing on his one leg. -LM Row Name 04/06/25 1143 Gait/Stairs (Locomotion) [place] Level (Gait) modified independence - Distance in [...] Motion bilateral lower extremity ROM WFL -LM [facility] Name 04/06/25 1145 Strength Comprehensive (MMT) General Manual Muscle Testing (MMT) Assessment no strength deficits identified BLEs -LM [facility] Name 04/06/25 1145 Balance Balance Assessment sitting [...] = Cosigned By Initials Name Provider Type uSsan Cavazos, BRIANA Physical Therapist Goals/Plan No documentation. Clinical Impression [facility] 04/06/25 1146 Pain Pretreatment Pain Rating 0/10 - no pain -LM Posttreatment Pain Rating 0/10 - no pain -LM [facility] 04/06/25 1146 Plan of Care Review Plan of Care Reviewed With patient -LM Outcome Evaluation PT evaluation completed. Pt demonstrated independence with all mobility including ambulating 100 feet using rw - no unsteadiness noted. Pt reports he feels at baseline and doesn't think he needs skilled PT while here. Recommend home at d/c. PT signing off. -LM [facility] Name 04/06/25 1146 Therapy Assessment/Plan (PT) Criteria for Skilled Interventions Met (PT) no;no problems identified which require skilled intervention -LM Therapy Frequency (PT) evaluation only -LM Predicted Duration of Therapy Intervention (PT) Eval Only -LM [facility] Name 04/06/25 1146 Vital Signs Pretreatment Heart Rate (beats/min) 86 -LM Posttreatment Heart Rate (beats/min) 96 -LM Pre SpO2 (%) 95 -LM O2 Delivery Pre Treatment room air -LM Post SpO2 (%) 96 -LM O2 Delivery Post Treatment room air -LM Pre Patient Position Sitting -LM Post Patient Position Sitting -LM [facility] Name 04/06/25 1146 Positioning and Restraints Pre-Treatment [...] Nurse Physical Therapy Education Title: PT OT AIRPLANE PILOT PHOTOGRAMMETRY Therapies (Done) Topic: Physical Therapy (Done) Point: [...] Description Service Date Service Provider Modifiers Qty [id number] PT EVAL LOW COMPLEXITY 3 04/06/2025 Susan [...] mg Daily 04/05/2025 -- Route: Oral heparin 70229 units/250 mL (100 units/mL) in 0.45 % [...] 22 [facility] [address], [address] LTAC, located within [facility], [address] Please schedule at [phone] VONDA Garcia 04/11/25 08:32 EDT Cosigned by Sushil Dean Jr., MD at 04/19/2025 10:33 AM EDT Associated attestation - Sushil Dean Jr., MD - 04/19/2025 10:33 AM EDT I have reviewed this documentation and agree. * Rosario Hill APRN - 04/10/2025 1:24 PM EDT Images from the original note were not included. [facility] PROGRESS NOTE Patient Name: Won [...] Date/Time Wound Culture - Swab, Leg, Right [[id number]] (Abnormal) (Susceptibility) Collected: 04/07/252106 Lab Status: Final [...] mg Daily 04/05/2025 -- Route: Oral heparin 61416 units/250 mL (100 units/mL) in 0.45 % [...] 22 [facility] [address] [facility], [address] LTAC, located [facility], [address] Please schedule at [phone] VONDA Garcia 04/10/25 09:01 EDT Cosigned by Sushil Dean Jr., MD at 04/19/2025 10:33 AM EDT Associated attestation - Sushil Dean Jr., MD - 04/19/2025 10:33 AM EDT I have reviewed this documentation and agree. * Carlton Mead MD - 04/10/2025 7:38 AM EDT Images from the original note were not included. INFECTIOUS DISEASE Progress Note Won Dennis 1980 [id number] Date of Consult: 04/10/2025 Admission Date: 04/04/2025 [...] IRRIGATION; Surgeon: Sushil Dean Jr., MD; Location: [facility] OR; Service: Orthopedics; Laterality: Right; PLACEMENT OF WOUND VAC Right 04/07/2025 Procedure: WOUND VACUUM ASSISTED CLOSURE; Surgeon: Sushil Dean Jr., MD; Location: [facility] OR; Service: Orthopedics; Laterality: Right; WOUND CLOSURE [...] Jr., MD, 20 mg at 04/09/25906 heparin 99403 units/250 mL (100 units/mL) in 0.45 % [...] to dose vancomycin Status: Discontinued Ordering Provider: Leonoar Shepherd MD Not Applicable Continuous PRN 04/04/25200404/05/25 [...] Units Date/Time FL C Arm During Surgery [[id number]] Resulted: 04/07/252137 Updated: 04/07/252137 Narrative: This procedure was auto-finalized with no dictation required. MRI Tibia Fibula Right With & Without Contrast [[id number]] Collected: 04/07/25937 Updated: 04/07/25 100 Narrative: MRI [...] Buenrostro 04/07/2025 9:58 AM EDT Workstation ID: [id number] Impression: Recurrent Right BKA stump abscess/cellulitis- this [...] MD 04/10/2025 07:38 EDT * Larisa Hamilton [facility] - 04/10/2025 7:17 AM [...] original note were not included. [facility] PROGRESS NOTE Patient Name: Won [...] Date/Time Wound Culture - Swab, Leg, Right [[id number]] (Abnormal) Collected: 04/07/252106 Lab Status: Preliminary result [...] Jason Álvarez DO 04/09/25 * Larisa Hamilton [facility] [...] Instructions: Open Order & Select [facility] Electrolyte Replacement Protocol Algorithm to View Details [...] mg Daily 04/05/2025 -- Route: Oral heparin 57928 units/250 mL (100 units/mL) in 0.45 % [...] Instructions: Open Order & Select [facility] Electrolyte Replacement Protocol Algorithm to View Details [...] radiographs [facility] [address] [facility], [address] LTAC, [facility], [address] Please schedule at [phone] VONDA Garcia 04/09/25 09:18 EDT Cosigned by Sushil Dean Jr., MD at 04/19/2025 10:33 AM EDT Associated attestation - Sushil Dean Jr., MD - 04/19/2025 10:33 AM EDT I have reviewed this documentation and agree. * Carlton Mead MD - 04/09/2025 8:25 AM EDT Images from the original note were not included. INFECTIOUS DISEASE Progress Note Won Dennis 1980 [id number] Date of Consult: 04/09/2025 Admission Date: 04/04/2025 [...] MD; Location: [facility]; Service: Orthopedics; Laterality: Right; PLACEMENT OF WOUND VAC Right 04/07/2025 Procedure: WOUND VACUUM ASSISTED CLOSURE; Surgeon: Sushil Dean Jr., MD; Location: [facility] OR; Service: Orthopedics; Laterality: Right; History reviewed. [...] MD, 20 mg at 04/08/25 0800 heparin 56895 units/250 mL (100 units/mL) in 0.45 % [...] Units Date/Time FL C Arm During Surgery [[id number]] Resulted: 04/07/252137 Updated: 04/07/252137 Narrative: This procedure was auto-finalized with no dictation required. MRI Tibia Fibula Right With & Without Contrast [[id number]] Collected: 04/07/25 0938 Updated: 04/07/25 1001 Narrative: [...] Chitra 04/07/2025 9:58 AM EDT Workstation ID: [id number] Impression: Recurrent Right BKA stump abscess/cellulitis- this [...] original note were not included. [facility] PROGRESS NOTE Patient Name: Won [...] Buenrostro 04/07/2025 9:58 AM EDT Workstation ID: [id number] I have personally reviewed the therapy plans: [...] Jason Álvarez, DO 04/08/25 * Hamilton, Larisa, [facility] - 04/08/2025 11:48 AM [...] Instructions: Open Order & Select [facility] Electrolyte Replacement Protocol Algorithm to View Details [...] mg Daily 04/05/2025 -- Route: Oral heparin 86295 units/250 mL (100 units/mL) in 0.45 % [...] INFECTIOUS DISEASE Progress Note Won Dennis 1980 [id number] Date of Consult: 04/08/2025 Admission Date: 04/04/2025 [...] MD; Location: [facility] OR; Service: Orthopedics; Laterality: Right; PLACEMENT OF WOUND VAC Right 04/07/2025 Procedure: WOUND VACUUM ASSISTED CLOSURE; Surgeon: Sushil Dean Jr., MD; Location: [facility] OR; Service: Orthopedics; Laterality: Right; History reviewed. [...] Oral, Q6H PRN, 500 mg at 04/06/25 1094 OR acetaminophen (TYLENOL) 160 MG/5ML oral solution [...] Jr., MD, 20 mg at 04/07/25950 heparin 91167 units/250 mL (100 units/mL) in 0.45 % [...] mg/500 mL 0.9% NS IVPB ([facility]) Ordering Provider: Mario Crowley, DO 20 mg/kg [...] Units Date/Time FL C Arm During Surgery [[id number]] Resulted: 04/07/252137 Updated: 04/07/252137 Narrative: This procedure was auto-finalized with no dictation required. MRI Tibia Fibula Right With & Without Contrast [[id number]] Collected: 04/07/25 0938 Updated: 04/07/25 1001 Narrative: [...] Buenrostro 04/07/2025 9:58 AM EDT Workstation ID: [id number] Impression: Right BKA stump cellulitis- s/p BKA with multiple surgical interventions with Known MRSA 05/09/2025. (Treated by ID in [place] Dr. Harris). Dr. Torres treated him with [...] original note were not included. [facility] PROGRESS NOTE Patient Name: Won [...] Buenrostro 04/07/2025 9:58 AM EDT Workstation ID: [id number] I have personally reviewed the therapy plans: [...] Jason DO Preeti 04/07/25 * Larisa Hamilton, [facility] - 04/07/2025 11:56 AM [...] INFECTIOUS DISEASE Progress Note Won Dennis 1980 [id number] Date of Consult: 04/07/2025 Admission Date: 04/04/2025 [...] MD, 20 mg at 04/06/25 0900 heparin 71480 units/250 mL (100 units/mL) in 0.45 % [...] With & Without Contrast - In process [[id number]] Resulted: 04/07/25828 Updated: 04/07/25828 This result has not been signed. Information might be incomplete. MRI Tibia Fibula Right With & Without Contrast [[id number]] Collected: 04/04/252256 Updated: 04/04/253 Narrative: MRI TIBIA [...] represent a small area of phlegmonous change (gthlci65 image 10) measuring approximately 1.6 cm which [...] MD 04/04/2025 11:00 PM EDT Workstation ID: [id number] Impression: Right BKA stump cellulitis- s/p BKA with multiple surgical interventions with Known MRSA 05/09/2025. (Treated by ID in [place] Dr. Harris). Dr. Torres treated him with [...] Instructions: Open Order & Select [facility] Electrolyte Replacement Protocol Algorithm to View Details [...] mg Daily 04/05/2025 -- Route: Oral heparin 29299 units/250 mL (100 units/mL) in 0.45 % [...] Instructions: Open Order & Select [facility] Electrolyte Replacement Protocol Algorithm to View Details [...] original note were not included. [facility] PROGRESS NOTE Patient Name: Won [...] MD 04/04/2025 11:00 PM EDT Workstation ID: [id number] I have personally reviewed the therapy plans: [...] mg Daily 04/05/2025 -- Route: Oral heparin 73636 units/250 mL (100 units/mL) in 0.45 % [...] Instructions: Open Order & Select [facility] Electrolyte Replacement Protocol Algorithm to View Details [...] Instructions: Open Order & Select [facility] Electrolyte Replacement Protocol Algorithm to View Details [...] INFECTIOUS DISEASE follow up. Won Dennis 1980 [id number] Date of Consult: 04/06/2025 Admission Date: 04/04/2025 [...] MD, 20 mg at 04/06/25 0900 heparin 38374 units/250 mL (100 units/mL) in 0.45 % [...] Tibia Fibula Right With & Without Contrast [[id number]] Collected: 04/04/252256 Updated: 04/04/252302 Narrative: MRI TIBIA [...] represent a small area of phlegmonous change (uvbcji06 image 10) measuring approximately 1.6 cm which [...] MD 04/04/2025 11:00 PM EDT Workstation ID: [id number] Impression: Right BKA stump cellulitis- s/p BKA with multiple surgical interventions with Known MRSA 05/09/2025. (Treated by ID in [place] Dr. Harris). Dr. Torres treated him with [...] Pending New start -- +11 11 0600 ALEDN Hernandez. 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 04/05 0500 0.30 11 -- -- 11 1200 ALDEN LEIGH 04/05 1215 0.17 11 1999 +3 14 2100 ALDEN Beatty RPH 04/05/2025 14:55 EDT * Jason Álvarez DO - 04/05/2025 12:43 PM EDT Images from the original note were not included. [facility] PROGRESS NOTE Patient Name: Won [...] MD 04/04/2025 11:00 PM EDT Workstation ID: [id number] I have personally reviewed the therapy plans: [...] original note were not included. 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 male admitted to [facility] with Right BKA infection [...] was evaluated in the emergency department in [place], was discharged with instructions for follow-up. He [...] tablet by mouth Daily. 04/03/2025 Morning Lactobacillus-Inulin ([facility]) capsule Take 200 mg by [...] MD 04/04/2025 11:00 PM EDT Workstation ID: [id number] Assessment: Right BKA infection 44-year-old male with [...] DISEASE CONSULT/INITIAL HOSPITAL VISIT Won Dennis 1980 [id number] Date of Consult: 04/05/2025 Admission Date: 04/04/2025 [...] Leonora Shepherd MD, 40 mg at 04/04/25 4331 sennosides-docusate (PERICOLACE) 8.6-50 MG per tablet 2 [...] MD, 20 mg at 04/05/25 09 heparin 41596 units/250 mL (100 units/mL) in 0.45 % [...] Leonora Shepherd MD, 10 mg at 04/04/25 0220 Pharmacy to Dose Heparin, , Not Applicable, [...] 40 mL, 40 mL, Intravenous, PRN, Leonora Shephred MD tamsulosin (FLOMAX) 24 hr capsule 0.4 [...] Tibia Fibula Right With & Without Contrast [[id number]] Collected: 04/04/252256 Updated: 04/04/252302 Narrative: MRI TIBIA [...] represent a small area of phlegmonous change (midysd28 image 10) measuring approximately 1.6 cm which [...] MD 04/04/2025 11:00 PM EDT Workstation ID: [id number] Impression: Right BKA stump cellulitis- s/p BKA with multiple surgical interventions with Known MRSA 05/09/2025. (Treated by ID in [place] Dr. Harris). Dr. Torres treated him with [...] you for asking us to see Won Denins, I recommend the followin. Stop vancomycin 2. [...] Jr., MD - 04/08/2025 3:51 PM EDT [facility] OPERATIVE REPORT PATIENT NAME: Won Dennis DATE OF : 1980 PREOP DIAGNOSIS: Right Right below-knee amputation infection POSTOP DIAGNOSIS: Same. PROCEDURE: Right Right 12792: Secondary closure below-knee amputation SURGEON: Sushil Dean MD OPERATIVE TEAM: Forms Analysis Manager: Susi Grullon RN Scrub Person: Mary Paredes Scrub Person Extra: Hortencia Toribio Other: Katt Gotti RN; Charis Neville RN ANESTHETIST: Anesthesiologist: Ulises Hoffman MD WELDING ESTIMATOR: Stan Casillas CRNA Student Nurse Gardening Instructor: Karol Albert SRNA ANESTHESIA: Choice ESTIMATED BLOOD [...] CULTURE (Canceled) Sushil Dean Jr., MD 04/08/25 6502 Description: RIGHT LEG DEEP WOUND FOR CULTURE [...] PM EDT [facility], [place] [address] OPERATIVE REPORT PATIENT NAME: Won Dennis DATE OF : 1980 PREOP DIAGNOSIS: Right Right below knee amputation stump infection POSTOP DIAGNOSIS: Same. PROCEDURE: Right Right 00328: Incision and drainage of surgical site infection 94390: Debridement of skin, subcutaneous tissue, muscle 94968: Wound vacuum-assisted closure SURGEON: Sushil Dean MD OPERATIVE TEAM: Forms Analysis Manager: Anum Sanchez RN Scrub Person: Hortencia Toribio; Gerald Ivey SCORING 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: Anesthesiologist: Luci Alonso DO ANESTHESIA: [...] this chart in the absence of a records clerk. No orders to display RADIOLOGY: [x] Radiologist's [...] DEBRA has spoke with Dena at [facility] today multiple times to get [...] in Agreement with Plan yes Plan Comments DEBAR spoke with the patient at bedside today. Patient was going to get IV ABX at home with [facility]; however, Medicaid lapsed on 04/08. DEBRA was unaware until this morning that Medicaid has lapsed. Patient explained that he has Medicare A and B. CM spoke with KELLEE and given themhis Medicare number [id number], she sent it to Admission. DEBRA spoke with Kerri, with [facility], and explained that he had Medicare A and B. However, it will not cover home infusion. It will be $64.00 a day out of packet. Patients can go to the Infusion center at [facility], and it will cover the [...] orders over to [facility] at [phone]. CM will follow up with them tomorrow [...] 04/09/2025 2:51 PM EDT Continued Stay Note [facility] Patient Name: Won Dennis Today's Date: 04/09/2025 Admit Date: 04/04/2025 Plan: Home Discharge Plan Row Name 04/09/25 1311 Plan Plan Home Patient/Family in Agreement with Plan yes Plan Comments CM spoke with patient at bedside today. Wheelchair from [employer] is at bedside. Patient getting PICC line [...] note were not included. 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 Patient lives with and his 5 kids in [place]. 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 He has walker, cane, shower chair, and crutches. He requested a wheelchair for home. CM will order wheelchair [facility]. He is not current with home health services. PCP is Dr. Jordan. Insurance is [employer] [place]. Patient discharge plan is home with [facility]av[facility] transport. CM will follow for any discharge needs. Final Discharge Disposition Code 01 - home or self-care Continued Care and Services - Admitted Since 04/04/2025 No active coordination exists. Demographic Summary Row Name 04/07/25 1143 General Information Arrived From hospital Preferred Language Bulgarian Functional Status Row Name 04/07/25 1143 Functional [...] Auto Differential (04/11/2025 3:40 AM EDT) [facility] WBC 7.87 3.40 - 10.80 10*3/mm3 04/11/2025 4:02 AM EDT [facility] RBC 4.70 4.14 - 5.80 10*6/mm3 04/11/2025 4:02 AM [facility] Hemoglobin 12.8(L) 13.0 - 17.7 g/dL 04/11/2025 4:02 AM [facility] Hematocrit 40.5 37.5 - 51.0 % 04/11/2025 4:02 AM [facility] MCV 86.2 79.0 - 97.0 fL 04/11/2025 4:02 AM [facility] MCH 27.2 26.6 - 33.0 pg 04/11/2025 4:02 AM [facility] MCHC 31.6 31.5 - 35.7 g/dL 04/11/2025 4:02 AM [facility] RDW 12.9 12.3 - 15.4 % 04/11/2025 4:02 AM [facility] RDW-SD 40.5 37.0 - 54.0 fl 04/11/2025 4:02 AM [facility] MPV 9.2 6.0 - 12.0 fL 04/11/2025 4:02 AM [facility] Platelets 267 140 - 450 10*3/mm3 04/11/2025 4:02 AM [facility] Neutrophil % 59.5 42.7 - 76.0 % 04/11/2025 4:02 AM [facility] Lymphocyte % 26.3 19.6 - 45.3 % 04/11/2025 4:02 AM [facility] Monocyte % 9.3 5.0 - 12.0 % 04/11/2025 4:02 AM [facility] Eosinophil % 4.1 0.3 - 6.2 % 04/11/2025 4:02 AM [facility] Basophil % 0.4 0.0 - 1.5 % 04/11/2025 4:[facility] Immature Grans % 0.4 0.0 - 0.5 % 04/11/2025 4:02 AM EDT [facility] Neutrophils, Absolute 4.69 1.70 - 7.00 10*3/mm3 04/11/2025 4:02 AM EDT [facility] Lymphocytes, Absolute 2.07 0.70 - 3.10 10*3/mm3 04/11/2025 4:02 AM EDT [facility] Monocytes, Absolute 0.73 0.10 - 0.90 10*3/mm3 04/11/2025 4:02 AM EDT [facility] Eosinophils, Absolute 0.32 0.00 - 0.40 10*3/mm3 04/11/2025 4:02 AM EDT [facility] Basophils, Absolute 0.03 0.00 - 0.20 10*3/mm3 04/11/2025 4:02 AM EDT [facility] Immature Grans, Absolute 0.03 0.00 - 0.05 10*3/mm3 04/11/2025 4:02 AM EDT [facility] nRBC 0.0 0.0 - 0.2 /100 WBC 04/11/2025 4:02 AM EDT [facility] Blood Venipuncture / Unknown 04/11/2025 3:40 AM EDT 04/11/2025 3:59 AM EDT us Sushil Dean Jr., MD LAB BLOOD ORDERABLES Fi nal Result [facility]
[address] [place] [address], * (ABNORMAL) Comprehensive Metabolic Panel (04/11/2025 3:40 AM EDT) Glucose 108(H) 65 - 99 mg/dL 04/11/2025 4:19 AM EDT [facility] BUN 12.5 6.0 - 20.0 mg/dL 04/11/2025 4:19 AM EDT [facility] Creatinine 0.68(L) 0.76 - 1.27 mg/dL 04/11/2025 4:19 AM [facility] Sodium 140 136 - 145 mmol/L 04/11/2025 4:19 AM [facility] Potassium 3.8 3.5 - 5.2 mmol/L 04/11/2025 4:19 AM [facility] Chloride 105 98 - 107 mmol/L 04/11/2025 4:19 AM [facility] CO2 28.2 22.0 - 29.0 mmol/L 04/11/2025 4:19 AM [facility] Calcium 8.2(L) 8.6 - 10.5 mg/dL 04/11/2025 4:19 AM [facility] Total Protein 6.1 6.0 - 8.5 g/dL 04/11/2025 4:19 AM [facility] Albumin 3.1(L) 3.5 - 5.2 g/dL 04/11/2025 4:19 AM [facility] ALT (SGPT) 52(H) 1 - 41 U/L 04/11/2025 4:19 AM [facility] AST (SGOT) 40 1 - 40 U/L 04/11/2025 4:19 AM [facility] Alkaline Phosphatase 99 39 - 117 U/L 04/11/2025 4:19 AM [facility] Total Bilirubin 0.2 0.0 - 1.2 mg/dL 04/11/2025 4:19 AM [facility] Globulin 3.0 gm/dL 04/11/2025 4:19 AM [facility] Comment:Calculated Result A/G Ratio 1.0 g/dL 04/11/2025 4:19 AM [facility] BUN/Creatinine Ratio 18.4 7.0 - 25.0 04/11/2025 4:19 AM [facility] Anion Gap 6.8 5.0 - 15.0 mmol/L 04/11/2025 4:19 AM [facility] eGFR 117.5 >60.0 mL/min/1.7 3 04/11/2025 4:19 AM EDT [facility] Blood Venipuncture / Unknown 04/11/2025 3:40 AM EDT 04/11/2025 3:56 AM EDT [facility] - 04/11/2025 4:19 AM [...] LAB BLOOD ORDERABLES Final Result [facility]
[address] [place] [address], * (ABNORMAL) CBC Auto Differential (04/10/2025 3:46 AM EDT) WBC 9.60 3.40 - 10.80 10*3/mm3 04/10/2025 3:56 AM EDT [facility] RBC 4.67 4.14 - 5.80 10*6/mm3 04/10/2025 3:56 AM EDT [facility] Hemoglobin 12.9(L) 13.0 - 17.7 g/dL 04/10/2025 3:56 AM EDT [facility] Hematocrit 40.1 37.5 - 51.0 % 04/10/2025 3:56 AM EDT [facility] MCV 85.9 79.0 - 97.0 fL 04/10/2025 3:56 AM EDT [facility] MCH 27.6 26.6 - 33.0 pg 04/10/2025 3:56 [facility] MCHC 32.2 31.5 - 35.7 g/dL 04/10/2025 3:56 AM EDT [facility] RDW 12.9 12.3 - 15.4 % 04/10/2025 3:56 [facility] RDW-SD 40.5 37.0 - 54.0 fl 04/10/2025 3:56 AM EDT [facility] MPV 9.5 6.0 - 12.0 fL 04/10/2025 3:56 AM EDT [facility] Platelets 227 140 - 450 10*3/mm3 04/10/2025 3:56 AM [facility] Neutrophil % 59.1 42.7 - 76.0 % 04/10/2025 3:56 AM [facility] Lymphocyte % 29.0 19.6 - 45.3 % 04/10/2025 3:56 [facility] Monocyte % 8.1 5.0 - 12.0 % 04/10/2025 3:56 AM [facility] Eosinophil % 3.2 0.3 - 6.2 % 04/10/2025 3:56 AM [facility] Basophil % 0.4 0.0 - 1.5 % 04/10/2025 3:56 AM [facility] Immature Grans % 0.2 0.0 - 0.5 % 04/10/2025 3:56 AM [facility] Neutrophils, Absolute 5.67 1.70 - 7.00 10*3/mm3 04/10/2025 3:56 AM [facility] Lymphocytes, Absolute 2.78 0.70 - 3.10 10*3/mm3 04/10/2025 3:56 AM [facility] Monocytes, Absolute 0.78 0.10 - 0.90 10*3/mm3 04/10/2025 3:56 AM [facility] Eosinophils, Absolute 0.31 0.00 - 0.40 10*3/mm3 04/10/2025 3:56 AM EDT [facility] Basophils, Absolute 0.04 0.00 - 0.20 10*3/mm3 04/10/2025 3:56 AM EDT [facility] Immature Grans, Absolute 0.02 0.00 - 0.05 10*3/mm3 04/10/2025 3:56 AM EDT [facility] nRBC 0.0 0.0 - 0.2 /100 WBC 04/10/2025 3:56 AM EDT [facility] Blood Venipuncture / Unknown 04/10/2025 3:46 AM EDT 04/10/2025 3:53 AM EDT us Jason Álvarez DO LAB BLOOD ORDERABLES Final Resul t [facility]
[address] [place] [address], * (ABNORMAL) Basic Metabolic Panel (04/10/2025 3:46 AM EDT) Glucose 125(H) 65 - 99 mg/dL 04/10/2025 4:20 AM EDT [facility] BUN 15.9 6.0 - 20.0 mg/dL 04/10/2025 4:20 AM EDT [facility] Creatinine 0.77 0.76 - 1.27 mg/dL 04/10/2025 4:20 AM EDT [facility] Sodium 137 136 - 145 mmol/L 04/10/2025 4:20 AM EDT [facility] Potassium 3.9 3.5 - 5.2 mmol/L 04/10/2025 4:20 AM EDT [facility] Chloride 102 98 - 107 mmol/L 04/10/2025 4:20 AM EDT [facility] CO2 26.9 22.0 - 29.0 mmol/L 04/10/2025 4:20 AM EDT [facility] Calcium 7.9(L) 8.6 - 10.5 mg/dL 04/10/2025 4:20 AM EDT [facility] BUN/Creatinine Ratio 20.6 7.0 - 25.0 04/10/2025 4:20 AM EDT [facility] Anion Gap 8.1 5.0 - 15.0 mmol/L 04/10/2025 4:20 AM EDT [facility] eGFR 113.2 >60.0 mL/min/1.7 3 04/10/2025 4:20 AM EDT [facility] Blood Venipuncture / Unknown 04/10/2025 3:46 AM EDT 04/10/2025 3:52 AM EDT Narrative [facility] - 04/10/2025 4:20 AM EDT [...] BLOOD ORDERABLES Final Resul t [facility]
[address] [place] [address], * Heparin Anti-Xa (04/10/2025 3:46 AM EDT) Heparin Anti-Xa (UFH) 0.35 0.30 - 0.70 IU/ml 04/10/2025 4:23 AM EDT [facility] Blood Venipuncture / Unknown 04/10/2025 3:46 AM EDT 04/10/2025 3:53 AM EDT Larisa Hamilton [facility] LAB BLOOD ORDERABLES Final R esult [facility]
[address] [place] [address], * Heparin Anti-Xa (04/09/2025 10:05 AM EDT) Pathologist [facility] Heparin Anti-Xa (UFH) 0.36 0.30 - 0.70 IU/ml 04/09/2025 11:12 AM EDT [facility] Blood Venipuncture / Unknown 04/09/2025 10:05 AM EDT 04/09/2025 10:47 AM EDT Larisa Hamilton [facility] LAB BLOOD ORDERABLES Final R esult [facility]
[address] [place] [address], * (ABNORMAL) CBC Auto Differential (04/09/2025 4:18 AM EDT) Pathologist [facility] WBC 11.00(H) 3.40 - 10.80 10*3/mm3 04/09/2025 4:50 AM EDT [facility] RBC 4.70 4.14 - 5.80 10*6/mm3 04/09/2025 4:50 AM EDT [facility] Hemoglobin 13.0 13.0 - 17.7 g/dL 04/09/2025 4:50 AM EDT [facility] Hematocrit 40.4 37.5 - 51.0 % 04/09/2025 4:50 AM EDT [facility] MCV 86.0 79.0 - 97.0 fL 04/09/2025 4:50 AM EDT [facility] MCH 27.7 26.6 - 33.0 pg 04/09/2025 4:50 AM EDT [facility] MCHC 32.2 31.5 - 35.7 g/dL 04/09/2025 4:50 AM EDT [facility] RDW 12.8 12.3 - 15.4 % 04/09/2025 4:50 AM [facility] RDW-SD 39.9 37.0 - 54.0 fl 04/09/2025 4:50 AM [facility] MPV 10.0 6.0 - 12.0 fL 04/09/2025 4:50 AM [facility] Platelets 211 140 - 450 10*3/mm3 04/09/2025 4:50 AM [facility] Neutrophil % 74.8 42.7 - 76.0 % 04/09/2025 4:50 AM [facility] Lymphocyte % 15.4(L) 19.6 - 45.3 % 04/09/2025 4:50 AM [facility] Monocyte % 8.5 5.0 - 12.0 % 04/09/2025 4:50 AM [facility] Eosinophil % 0.6 0.3 - 6.2 % 04/09/2025 4:50 AM [facility] Basophil % 0.4 0.0 - 1.5 % 04/09/2025 4:50 AM [facility] Immature Grans % 0.3 0.0 - 0.5 % 04/09/2025 4:50 AM [facility] Neutrophils, Absolute 8.23(H) 1.70 - 7.00 10*3/mm3 04/09/2025 4:50 AM [facility] Lymphocytes, Absolute 1.69 0.70 - 3.10 10*3/mm3 04/09/2025 4:50 AM [facility] Monocytes, Absolute 0.94(H) 0.10 - 0.90 10*3/mm3 04/09/2025 4:50 AM [facility] Eosinophils, Absolute 0.07 0.00 - 0.40 10*3/mm3 04/09/2025 4:50 [facility] Basophils, Absolute 0.04 0.00 - 0.20 10*3/mm3 04/09/2025 4:50 AM EDT [facility] Immature Grans, Absolute 0.03 0.00 - 0.05 10*3/mm3 04/09/2025 4:50 AM EDT [facility] nRBC 0.0 0.0 - 0.2 /100 WBC 04/09/2025 4:50 AM EDT [facility] Blood Venipuncture / Unknown 04/09/2025 4:18 AM EDT 04/09/2025 4:31 AM EDT Sushil Dean Jr., MD LAB BLOOD ORDERABLES Fi nal Result Performing Organization Address City/[facility]/ZIP Co de Phone Number [facility]
[address] [place] [address], * Heparin Anti-Xa (04/09/2025 4:18 AM EDT) Heparin Anti-Xa (UFH) 0.41 0.30 - 0.70 IU/ml 04/09/2025 4:53 AM EDT [facility] Blood Venipuncture / Unknown 04/09/2025 4:18 AM EDT 04/09/2025 4:31 AM EDT Una LundbergD LAB BLOOD ORDERABLES Final R esult [facility]
[address] [place] [address], * (ABNORMAL) Basic Metabolic Panel (04/09/2025 4:18 AM EDT) Glucose 147(H) 65 - 99 mg/dL 04/09/2025 5:33 AM EDT [facility] BUN 23.0(H) 6.0 - 20.0 mg/dL 04/09/2025 5:33 AM EDT [facility] Creatinine 1.15 0.76 - 1.27 mg/dL 04/09/2025 5:33 AM EDT [facility] Sodium 135(L) 136 - 145 mmol/L 04/09/2025 5:33 AM EDT [facility] Potassium 4.2 3.5 - 5.2 mmol/L 04/09/2025 5:33 AM EDT [facility] Chloride 100 98 - 107 mmol/L 04/09/2025 5:33 AM EDT [facility] CO2 26.0 22.0 - 29.0 mmol/L 04/09/2025 5:33 AM EDT [facility] Calcium 8.2(L) 8.6 - 10.5 mg/dL 04/09/2025 5:33 AM EDT [facility] BUN/Creatinine Ratio 20.0 7.0 - 25.0 04/09/2025 5:33 AM EDT [facility] Anion Gap 9.0 5.0 - 15.0 mmol/L 04/09/2025 5:33 AM EDT [facility] eGFR 80.5 >60.0 mL/min/1.7 3 04/09/2025 5:33 AM EDT [facility] Blood Venipuncture / Unknown 04/09/2025 4:18 AM EDT 04/09/2025 4:29 AM EDT [facility] - 04/09/2025 5:33 AM [...] BLOOD ORDERABLES Fi nal Result [facility]
[address] [place] [address], * Wound Culture - Swab, Leg, Right (04/08/2025 3:40 PM EDT) Wound Culture No growth at 3 days ALIZA 04/11/2025 10:40 AM EDT [facility] Gram Stain Few (2+) WBCs seen 04/11/2025 10:40 AM EDT [facility] Gram Stain No organisms seen 04/11/2025 10:40 AM EDT [facility] Swab Structure of right lower limb / Unknown 04/08/2025 3:40 PM EDT 04/08/2025 8:05 PM EDT us Sushil Dean Jr., MD MICROBIOLOGY - GENERAL ORDERABLES Final Result Performing Organization Address City/[facility]/ZIP Co de Phone Number [facility]
[address] [place] [address], [facility]
[address] [place] [address], * Anaerobic Culture - Swab, Leg, Right (04/08/2025 3:40 PM EDT) Anaerobic Culture No anaerobes isolated at 5 days ALIZA 04/13/2025 7:24 AM EDT [facility] Swab Structure of right lower limb / Unknown 04/08/2025 3:40 PM EDT 04/08/2025 8:05 PM EDT us Sushil Dean Jr., MD MICROBIOLOGY - GENERAL ORDERABLES Final Result Performing Organization Address City/[facility]/ZIP Co de Phone Number [facility]
[address] [place] [address], * Scan Slide (04/08/2025 8:41 AM EDT) RBC Morphology Normal Normal 04/08/2025 11:02 AM EDT [facility] WBC Morphology Normal Normal 04/08/2025 11:02 AM EDT [facility] Platelet Estimate Adequate Normal 04/08/2025 11:02 AM EDT [facility] Clumped Platelets Present None Seen 04/08/2025 11:02 AM EDT [facility] Blood Venipuncture / Unknown 04/08/2025 8:41 AM EDT 04/08/2025 9:10 AM EDT Una Minda PharmD LAB BLOOD ORDERABLES Final R esult [facility]
[address] [place] [address], * (ABNORMAL) CBC Auto Differential (04/08/2025 8:41 AM EDT) WBC 10.07 3.40 - 10.80 10*3/mm3 04/08/2025 11:02 AM EDT [facility] RBC 5.01 4.14 - 5.80 10*6/mm3 04/08/2025 11:02 AM EDT [facility] Hemoglobin 14.0 13.0 - 17.7 g/dL 04/08/2025 11:02 AM EDT [facility] Hematocrit 42.7 37.5 - 51.0 % 04/08/2025 11:02 AM EDT [facility] MCV 85.2 79.0 - 97.0 fL 04/08/2025 11:02 AM EDT [facility] MCH 27.9 26.6 - 33.0 pg 04/08/2025 11:02 AM EDT [facility] MCHC 32.8 31.5 - 35.7 g/dL 04/08/2025 11:02 AM EDT [facility] RDW 12.6 12.3 - 15.4 % 04/08/2025 11:02 AM EDT [facility] RDW-SD 38.9 37.0 - 54.0 fl 04/08/2025 11:02 AM [facility] MPV 11.0 6.0 - 12.0 fL 04/08/2025 11:02 AM [facility] Platelets 118(L) 140 - 450 10*3/mm3 04/08/2025 11:02 AM [facility] Neutrophil % 85.1(H) 42.7 - 76.0 % 04/08/2025 11:02 AM [facility] Lymphocyte % 9.3(L) 19.6 - 45.3 % 04/08/2025 11:02 AM [facility] Monocyte % 4.6(L) 5.0 - 12.0 % 04/08/2025 11:02 AM [facility] Eosinophil % 0.3 0.3 - 6.2 % 04/08/2025 11:02 AM [facility] Basophil % 0.2 0.0 - 1.5 % 04/08/2025 11:02 AM [facility] Immature Grans % 0.5 0.0 - 0.5 % 04/08/2025 11:02 AM [facility] Neutrophils, Absolute 8.57(H) 1.70 - 7.00 10*3/mm3 04/08/2025 11:02 AM [facility] Lymphocytes, Absolute 0.94 0.70 - 3.10 10*3/mm3 04/08/2025 11:02 AM [facility] Monocytes, Absolute 0.46 0.10 - 0.90 10*3/mm3 04/08/2025 11:02 AM [facility] Eosinophils, Absolute 0.03 0.00 - 0.40 10*3/mm3 04/08/2025 11:02 AM [facility] Basophils, Absolute 0.02 0.00 - 0.20 10*3/mm3 04/08/2025 11:02 AM [facility] Immature Grans, Absolute 0.05 0.00 - 0.05 10*3/mm3 04/08/2025 11:02 AM EDT [facility] nRBC 0.0 0.0 - 0.2 /100 WBC 04/08/2025 11:02 AM EDT [facility] Blood Venipuncture / Unknown 04/08/2025 8:41 AM EDT 04/08/2025 9:10 AM EDT Una Perla PharmD LAB BLOOD ORDERABLES Final R esult [facility]
[address] [place] [address], * (ABNORMAL) Basic Metabolic Panel (04/08/2025 8:41 AM EDT) Glucose 125(H) 65 - 99 mg/dL 04/08/2025 9:51 AM EDT [facility] BUN 13.2 6.0 - 20.0 mg/dL 04/08/2025 9:51 AM EDT [facility] Creatinine 0.69(L) 0.76 - 1.27 mg/dL 04/08/2025 9:51 AM EDT [facility] Sodium 136 136 - 145 mmol/L 04/08/2025 9:51 AM EDT [facility] Potassium 4.6 3.5 - 5.2 mmol/L 04/08/2025 9:51 AM EDT [facility] Chloride 102 98 - 107 mmol/L 04/08/2025 9:51 AM EDT [facility] CO2 23.5 22.0 - 29.0 mmol/L 04/08/2025 9:51 AM EDT [facility] Calcium 8.4(L) 8.6 - 10.5 mg/dL 04/08/2025 9:51 AM EDT [facility] BUN/Creatinine Ratio 19.1 7.0 - 25.0 04/08/2025 9:51 AM EDT [facility] Anion Gap 10.5 5.0 - 15.0 mmol/L 04/08/2025 9:51 AM EDT [facility] eGFR 117.0 >60.0 mL/min/1.7 3 04/08/2025 9:51 AM EDT [facility] Blood Venipuncture / Unknown 04/08/2025 8:41 AM EDT 04/08/2025 9:09 AM EDT Narrative [facility] - 04/08/2025 9:51 AM EDT [...] Organization Address City/[facility]/ZIP Co de Phone Number [facility]
[address] [place] [address], * Heparin Anti-Xa (04/08/2025 8:41 AM EDT) Heparin Anti-Xa ([facility]) 0.33 0.30 - 0.70 IU/ml 04/08/2025 9:40 AM EDT [facility] Blood Venipuncture / Unknown 04/08/2025 8:41 AM EDT 04/08/2025 9:10 AM EDT Sushil Dean Jr., MD LAB BLOOD ORDERABLES Fi nal Result Performing Organization Address City/[facility]/ZIP Co de Phone Number [facility]
[address] [place] [address], * [place] C Arm During Surgery (04/07/2025 [...] seen 04/11/2025 10:40 AM EDT [facility] Gram Stain No organisms seen 04/11/2025 10:40 AM EDT [facility] Swab Structure of right lower limb / Unknown Collection / Unknown 04/07/2025 9:14 PM EDT 04/08/2025 4:36 AM EDT us Sushil Dean Jr., MD MICROBIOLOGY - GENERAL ORDERABLES Final Result Performing Organization Address City/[facility]/ZIP Co de Phone Number [facility]
[address] [place] [address], [place] [phone] [facility]
[address] [place] [address], [place] [phone] * Anaerobic Culture - Swab, Leg, Right (04/07/2025 9:14 PM EDT) Anaerobic Culture No anaerobes isolated at 5 days ALIZA 04/13/2025 7:21 AM EDT [facility] Swab Structure of right lower limb / Unknown Collection / Unknown 04/07/2025 9:14 PM EDT 04/08/2025 4:36 AM EDT us Sushil Dean Jr., MD MICROBIOLOGY - GENERAL ORDERABLES Final Result [facility]
[address] [place] [address], * Anaerobic Culture - Tissue, Leg (04/07/2025 9:13 PM EDT) Anaerobic Culture No anaerobes isolated at 5 days ALIZA 04/13/2025 7:21 AM EDT [facility] Tissue Lower limb structure / Unknown Collection / Unknown 04/07/2025 9:13 PM EDT 04/08/2025 4:54 AM EDT Jason Álvarez DO MICROBIOLOGY - GENERAL ORDERABLE S Final Result Performing Organization Address [facility]/State/ZIP Co de Phone Number [facility]
[address] [place] [address], * Tissue / Bone Culture - Tissue, Leg, Right (04/07/2025 9:13 PM EDT) Tissue Culture No growth at 3 days ALIZA 04/11/2025 10:36 AM EDT [facility] Gram Stain Rare (1+) WBCs seen 04/11/2025 10:36 AM EDT [facility] Gram Stain No organisms seen 04/11/2025 10:36 AM EDT [facility] Tissue Structure of right lower limb / Unknown 04/07/2025 9:13 PM EDT 04/08/2025 4:54 AM EDT Sushil Dean Jr., MD MICROBIOLOGY - GENERAL ORDERABLES Final Result [facility]
[address] [place] [address], [facility]
[address] [place] [address], [place] [phone] * (ABNORMAL) Wound Culture - Swab, Leg, Right (04/07/2025 9:07 PM EDT) Wound Culture Light growth (2+) Staphylococcus aureus, MRSA(A) ALIZA 04/10/2025 10:38 AM EDT [facility] Comment: Methicillin resistant Staphylococcus aureus, Patient may be an isolation risk. Gram Stain Few (2+) WBCs seen 04/10/2025 10:38 AM EDT [facility] Gram Stain No organisms seen 10:38 AM EDT [facility] Swab Structure of right lower [...] Final Result [facility]
[address] [place] [address], [place] [phone] [facility]
[address] [place] [address], [place] [phone] * Anaerobic Culture - Swab, Leg, Right (04/07/2025 9:07 PM EDT) Anaerobic Culture No anaerobes isolated at 5 days ALIZA 04/13/2025 7:21 AM EDT [facility] Swab Structure of right lower limb / Unknown Collection / Unknown 04/07/2025 9:07 PM EDT 04/08/2025 4:36 AM EDT us Sushil Dean Jr., MD MICROBIOLOGY - GENERAL ORDERABLES Final Result [facility]
[address] [place] [address], * Heparin Anti-Xa (04/07/2025 9:10 AM EDT) Pathologist [facility] Heparin Anti-Xa ([facility]) 0.30 0.30 - 0.70 IU/ml 04/07/2025 10:12 AM EDT [facility] Blood Venipuncture / Unknown 04/07/2025 9:10 AM EDT 04/07/2025 9:38 AM EDT Una Perla PharmD LAB BLOOD ORDERABLES Final R esult Performing Organization Address City/[facility]/ZIP Co de Phone Number [facility]
[address] [place] [address], * (ABNORMAL) CBC Auto Differential (04/07/2025 9:10 AM EDT) Pathologist [facility] WBC 8.63 3.40 - 10.80 10*3/mm3 04/07/2025 9:50 AM EDT [facility] RBC 5.23 4.14 - 5.80 10*6/mm3 04/07/2025 9:50 AM EDT [facility] Hemoglobin 14.7 13.0 - 17.7 g/dL 04/07/2025 9:50 AM EDT [facility] Hematocrit 44.8 37.5 - 51.0 % 04/07/2025 9:50 AM EDT [facility] MCV 85.7 79.0 - 97.0 fL 04/07/2025 9:50 AM EDT [facility] MCH 28.1 26.6 - 33.0 pg 04/07/2025 9:50 AM EDT [facility] MCHC 32.8 31.5 - 35.7 g/dL 04/07/2025 9:50 AM EDT [facility] RDW 12.8 12.3 - 15.4 % 04/07/2025 9:50 AM [facility] RDW-SD 39.9 37.0 - 54.0 fl 04/07/2025 9:50 AM [facility] MPV 10.8 6.0 - 12.0 fL 04/07/2025 9:50 AM [facility] Platelets 149 140 - 450 10*3/mm3 04/07/2025 9:50 AM [facility] Neutrophil % 66.7 42.7 - 76.0 % 04/07/2025 9:50 AM [facility] Lymphocyte % 20.5 19.6 - 45.3 % 04/07/2025 9:50 AM [facility] Monocyte % 9.8 5.0 - 12.0 % 04/07/2025 9:50 AM [facility] Eosinophil % 2.1 0.3 - 6.2 % 04/07/2025 9:50 AM [facility] Basophil % 0.3 0.0 - 1.5 % 04/07/2025 9:50 AM [facility] Immature Grans % 0.6(H) 0.0 - 0.5 % 04/07/2025 9:50 AM [facility] Neutrophils, Absolute 5.75 1.70 - 7.00 10*3/mm3 04/07/2025 9:50 AM [facility] Lymphocytes, Absolute 1.77 0.70 - 3.10 10*3/mm3 04/07/2025 9:50 AM [facility] Monocytes, Absolute 0.85 0.10 - 0.90 10*3/mm3 04/07/2025 9:50 AM [facility] Eosinophils, Absolute 0.18 0.00 - 0.40 10*3/mm3 04/07/2025 9:50 AM [facility] Basophils, Absolute 0.03 0.00 - 0.20 10*3/mm3 04/07/2025 9:50 AM [facility] Immature Grans, Absolute 0.05 0.00 - 0.05 10*3/mm3 04/07/2025 9:50 AM EDT [facility] nRBC 0.0 0.0 - 0.2 /100 WBC 04/07/2025 9:50 AM EDT [facility] Blood Venipuncture / Unknown 04/07/2025 9:10 AM EDT 04/07/2025 9:38 AM EDT us Jason Álvarez DO LAB BLOOD ORDERABLES Final Resul t [facility]
[address] [place] [address], * (ABNORMAL) Basic Metabolic Panel (04/07/2025 9:10 AM EDT) Glucose 112(H) 65 - 99 mg/dL 04/07/2025 10:19 AM EDT [facility] BUN 13.1 6.0 - 20.0 mg/dL 04/07/2025 10:19 AM EDT [facility] Creatinine 0.77 0.76 - 1.27 mg/dL 04/07/2025 10:19 AM EDT [facility] Sodium 139 136 - 145 mmol/L 04/07/2025 10:19 AM EDT [facility] Potassium 4.2 3.5 - 5.2 mmol/L 04/07/2025 10:19 AM EDT [facility] Comment:Specimen hemolyzed. Result may be falsely elevated. Chloride 105 98 - 107 mmol/L 04/07/2025 10:19 AM EDT [facility] CO2 24.8 22.0 - 29.0 mmol/L 04/07/2025 10:19 AM EDT [facility] Calcium 8.6 8.6 - 10.5 mg/dL 04/07/2025 10:19 AM EDT [facility] BUN/Creatinine Ratio 17.0 7.0 - 25.0 04/07/2025 10:19 AM EDT [facility] Anion Gap 9.2 5.0 - 15.0 mmol/L 04/07/2025 10:19 AM EDT [facility] eGFR 113.2 >60.0 mL/min/1.7 3 04/07/2025 10:19 AM EDT [facility] Blood Venipuncture / Unknown 04/07/2025 9:10 AM EDT 04/07/2025 9:38 AM EDT Narrative [facility] - 04/07/2025 10:19 AM EDT [...] BLOOD ORDERABLES Final Resul t [facility]
[address] [place] [address], * MRI Tibia Fibula Right With & [...] [place] 04/07/2025 9:58 AM EDT Workstation ID: [id number] Narrative 04/07/2025 9:58 AM EDT MRI TIBIA [...] [place] 04/07/2025 9:58 AM EDT Workstation ID: [id number] Sushil Dean Jr., MD IMG MRI ORDERABLES Mary Beth l Result * Heparin Anti-Xa (04/07/2025 1:42 AM EDT) [facility] Heparin Anti-Xa (UFH) 0.38 0.30 - 0.70 IU/ml 04/07/2025 2:14 AM EDT [facility] Blood Venipuncture / Unknown 04/07/2025 1:42 AM EDT 04/07/2025 1:54 AM EDT Chelsie Turpin [facility] LAB BLOOD ORDERABLES Final R esult [facility]
[address] [place] [address], * Heparin Anti-Xa (04/06/2025 7:16 PM EDT) [facility] Heparin Anti-Xa (UFH) 0.33 0.30 - 0.70 IU/ml 04/06/2025 7:50 PM EDT [facility] Blood Venipuncture / Unknown 04/06/2025 7:16 PM EDT 04/06/2025 7:35 PM EDT Cherri Beatty [facility] LAB BLOOD ORDERABLES Final Res ult Performing Organization Address [facility] Co de Phone Number [facility]
[address] [place] [address], * Potassium (04/06/2025 7:16 PM EDT) [facility] Potassium 4.0 3.5 - 5.2 mmol/L 04/06/2025 7:53 PM EDT [facility] Blood Venipuncture / Unknown 04/06/2025 7:16 PM EDT 04/06/2025 7:35 PM EDT Jason Álvarez DO LAB BLOOD ORDERABLES Final Resul t Performing Organization Address [facility] de Phone Number [facility]
[address] [place] [address], * (ABNORMAL) Heparin Anti-Xa (04/06/2025 12:36 PM EDT) [facility] Heparin Anti-Xa (UFH) 0.24(L) 0.30 - 0.70 IU/ml 04/06/2025 1:23 PM EDT [facility] Blood Venipuncture / Unknown 04/06/2025 12:36 PM EDT 04/06/2025 1:07 PM EDT Una Perla PharmD LAB BLOOD ORDERABLES Final R esult Performing Organization Address [facility] Co de Phone Number [facility]
[address] [place] [address], * (ABNORMAL) Heparin Anti-Xa (04/06/2025 3:42 AM EDT) [facility] Heparin Anti-Xa (UFH) 0.25(L) 0.30 - 0.70 IU/ml 04/06/2025 5:30 AM EDT [facility] Blood Venipuncture / Unknown 04/06/2025 3:42 AM EDT 04/06/2025 4:59 AM EDT Chelsie Dyana [facility] LAB BLOOD ORDERABLES Final R esult [facility]
[address] [place] [address], * (ABNORMAL) Basic Metabolic Panel (04/06/2025 3:42 AM EDT) [facility] Glucose 94 65 - 99 mg/dL 04/06/2025 5:59 AM EDT [facility] BUN 12.8 6.0 - 20.0 mg/dL 04/06/2025 5:59 AM EDT [facility] Creatinine 0.80 0.76 - 1.27 mg/dL 04/06/2025 5:59 AM EDT [facility] Sodium 138 136 - 145 mmol/L 04/06/2025 5:59 AM EDT [facility] Potassium 3.6 3.5 - 5.2 mmol/L 04/06/2025 5:59 AM EDT [facility] Chloride 103 98 - 107 mmol/L 04/06/2025 5:59 AM EDT [facility] CO2 24.2 22.0 - 29.0 mmol/L 04/06/2025 5:59 AM EDT [facility] Calcium 8.0(L) 8.6 - 10.5 mg/dL 04/06/2025 5:59 AM EDT [facility] BUN/Creatinine Ratio 16.0 7.0 - 25.0 04/06/2025 5:59 AM EDT [facility] Anion Gap 10.8 5.0 - 15.0 mmol/L 04/06/2025 5:59 AM EDT [facility] eGFR 111.9 >60.0 mL/min/1.7 3 04/06/2025 5:59 AM EDT [facility] Blood Venipuncture / Unknown 04/06/2025 3:42 AM EDT 04/06/2025 5:20 AM EDT [facility] - 04/06/2025 5:59 AM [...] BLOOD ORDERABLES Final Resul t [facility]
[address] [place] [address], * (ABNORMAL) CBC Auto Differential (04/06/2025 3:41 AM EDT) WBC 10.86(H) 3.40 - 10.80 10*3/mm3 04/06/2025 5:04 AM EDT [facility] RBC 5.08 4.14 - 5.80 10*6/mm3 04/06/2025 5:04 AM EDT [facility] Hemoglobin 13.9 13.0 - 17.7 g/dL 04/06/2025 5:04 AM EDT [facility] Hematocrit 43.7 37.5 - 51.0 % 04/06/2025 5:04 AM EDT [facility] MCV 86.0 79.0 - 97.0 fL 04/06/2025 5:[facility] MCH 27.4 26.6 - 33.0 pg 04/06/2025 5:04 AM [facility] MCHC 31.8 31.5 - 35.7 g/dL 04/06/2025 5:04 AM [facility] RDW 12.8 12.3 - 15.4 % 04/06/2025 5:04 AM [facility] RDW-SD 40.0 37.0 - 54.0 fl 04/06/2025 5:04 AM [facility] MPV 11.7 6.0 - 12.0 fL 04/06/2025 5:04 AM [facility] Platelets 115(L) 140 - 450 10*3/mm3 04/06/2025 5:04 AM [facility] Neutrophil % 65.3 42.7 - 76.0 % 04/06/2025 5:04 AM [facility] Lymphocyte % 20.5 19.6 - 45.3 % 04/06/2025 5:04 AM [facility] Monocyte % 11.8 5.0 - 12.0 % 04/06/2025 5:04 AM [facility] Eosinophil % 1.8 0.3 - 6.2 % 04/06/2025 5:04 AM [facility] Basophil % 0.3 0.0 - 1.5 % 04/06/2025 5:04 [facility] Immature Grans % 0.3 0.0 - 0.5 % 04/06/2025 5:04 AM [facility] Neutrophils, Absolute 7.09(H) 1.70 - 7.00 10*3/mm3 04/06/2025 5:04 AM [facility] Lymphocytes, Absolute 2.23 0.70 - 3.10 10*3/mm3 04/06/2025 5:04 AM [facility] Monocytes, Absolute 1.28(H) 0.10 - 0.90 10*3/mm3 04/06/2025 5:04 AM EDT [facility] Eosinophils, Absolute 0.20 0.00 - 0.40 10*3/mm3 04/06/2025 5:04 AM EDT [facility] Basophils, Absolute 0.03 0.00 - 0.20 10*3/mm3 04/06/2025 5:04 AM EDT [facility] Immature Grans, Absolute 0.03 0.00 - 0.05 10*3/mm3 04/06/2025 5:04 AM EDT [facility] nRBC 0.0 0.0 - 0.2 /100 WBC 04/06/2025 5:04 AM EDT [facility] Blood Venipuncture / Unknown 04/06/2025 3:41 AM EDT 04/06/2025 4:58 AM EDT Jason Álvarez DO LAB BLOOD ORDERABLES Final Resul t Performing Organization Address City/[facility] Co de Phone Number [facility]
[address] [place] [address], [place] [phone] * Heparin Anti-Xa (04/05/2025 8:43 PM EDT) Pathologist [facility] Heparin Anti-Xa (UFH) 0.38 0.30 - 0.70 IU/ml 04/05/2025 9:09 PM EDT [facility] Blood Venipuncture / Unknown 04/05/2025 8:43 PM EDT 04/05/2025 8:55 PM EDT us Cherri Beatty [facility] LAB BLOOD ORDERABLES Final Res ult Performing Organization Address City/[facility] Co de Phone Number [facility]
[address] [place] [address], [place] [phone] * CK (04/05/2025 12:15 PM EDT) Creatine Kinase 140 20 - 200 U/L 04/05/2025 1:31 PM EDT [facility] Blood Venipuncture / Unknown 04/05/2025 12:15 PM EDT 04/05/2025 1:03 PM EDT Carlton Mead MD LAB BLOOD ORDERABLES Final R esult Performing Organization Address City/[facility]/ZIP Co de Phone Number [facility]
[address] [place] [address], * (ABNORMAL) Heparin Anti-Xa (04/05/2025 12:15 PM EDT) [facility] Heparin Anti-Xa (UFH) 0.17(L) 0.30 - 0.70 IU/ml 04/05/2025 1:21 PM EDT [facility] Blood Venipuncture / Unknown 04/05/2025 12:15 PM EDT 04/05/2025 1:04 PM EDT Una Perla PharmD LAB BLOOD ORDERABLES Final R esult Performing Organization Address City/[facility] Co de Phone Number [facility]
[address] [place] [address], * (ABNORMAL) aPTT (04/05/2025 3:54 AM EDT) [facility] PTT 35.3(L) 60.0 - 90.0 seconds 04/05/2025 4:31 AM EDT [facility] Blood Venipuncture / Unknown 04/05/2025 3:54 AM EDT 04/05/2025 4:15 AM EDT Narrative [facility] - 04/05/2025 4:31 AM EDT PTT = The equivalent PTT values for the therapeutic range of heparin levels at 0.3 to 0.5 U/ml are 60 to 70 seconds. [employer]D LAB BLOOD ORDERABLES Final R esult [facility]
[address] [place] [address], * Heparin Anti-Xa (04/05/2025 3:54 AM EDT) Pathologist [facility] Heparin Anti-Xa (UFH) 0.30 0.30 - 0.70 IU/ml 04/05/2025 4:32 AM EDT [facility] Blood Venipuncture / Unknown 04/05/2025 3:54 AM EDT 04/05/2025 4:15 AM EDT [employer]D LAB BLOOD ORDERABLES Final R esult Performing Organization Address City/[facility]/ZIP Co de Phone Number [facility]
[address] [place] [address], * (ABNORMAL) CBC Auto Differential (04/05/2025 3:54 AM EDT) [facility] WBC 11.18(H) 3.40 - 10.80 10*3/mm3 04/05/2025 4:20 AM EDT [facility] RBC 5.00 4.14 - 5.80 10*6/mm3 04/05/2025 4:20 AM EDT [facility] Hemoglobin 13.9 13.0 - 17.7 g/dL 04/05/2025 4:20 AM EDT [facility] Hematocrit 42.4 37.5 - 51.0 % 04/05/2025 4:20 AM EDT [facility] MCV 84.8 79.0 - 97.0 fL 04/05/2025 4:20 AM EDT [facility] MCH 27.8 26.6 - 33.0 pg 04/05/2025 4:20 AM EDT [facility] MCHC 32.8 31.5 - 35.7 g/dL 04/05/2025 4:20 AM [facility] RDW 12.9 12.3 - 15.4 % 04/05/2025 4:20 AM [facility] RDW-SD 39.7 37.0 - 54.0 fl 04/05/2025 4:20 AM [facility] MPV 10.2 6.0 - 12.0 fL 04/05/2025 4:20 AM [facility] Platelets 160 140 - 450 10*3/mm3 04/05/2025 4:20 AM [facility] Neutrophil % 73.5 42.7 - 76.0 % 04/05/2025 4:20 AM [facility] Lymphocyte % 14.0(L) 19.6 - 45.3 % 04/05/2025 4:20 AM [facility] Monocyte % 11.0 5.0 - 12.0 % 04/05/2025 4:20 AM [facility] Eosinophil % 0.8 0.3 - 6.2 % 04/05/2025 4:20 AM [facility] Basophil % 0.3 0.0 - 1.5 % 04/05/2025 4:20 AM [facility] Immature Grans % 0.4 0.0 - 0.5 % 04/05/2025 4:20 AM [facility] Neutrophils, Absolute 8.23(H) 1.70 - 7.00 10*3/mm3 04/05/2025 4:20 AM [facility] Lymphocytes, Absolute 1.56 0.70 - 3.10 10*3/mm3 04/05/2025 4:20 AM [facility] Monocytes, Absolute 1.23(H) 0.10 - 0.90 10*3/mm3 04/05/2025 4:20 AM [facility] Eosinophils, Absolute 0.09 0.00 - 0.40 10*3/mm3 04/05/2025 4:20 AM [facility] Basophils, Absolute 0.03 0.00 - 0.20 10*3/mm3 04/05/2025 4:20 AM EDT [facility] Immature Grans, Absolute 0.04 0.00 - 0.05 10*3/mm3 04/05/2025 4:20 AM EDT [facility] nRBC 0.0 0.0 - 0.2 /100 WBC 04/05/2025 4:20 AM EDT [facility] Blood Venipuncture / Unknown 04/05/2025 3:54 AM EDT 04/05/2025 4:16 AM EDT Una Perla PharmD LAB BLOOD ORDERABLES Final R esult [facility]
[address] [place] [address], * (ABNORMAL) Basic Metabolic Panel (04/05/2025 3:54 AM EDT) Glucose 152(H) 65 - 99 mg/dL 04/05/2025 4:40 AM EDT [facility] BUN 17.3 6.0 - 20.0 mg/dL 04/05/2025 4:40 AM EDT [facility] Creatinine 0.92 0.76 - 1.27 mg/dL 04/05/2025 4:40 AM EDT [facility] Sodium 136 136 - 145 mmol/L 04/05/2025 4:40 AM EDT [facility] Potassium 3.9 3.5 - 5.2 mmol/L 04/05/2025 4:40 AM EDT [facility] Chloride 103 98 - 107 mmol/L 04/05/2025 4:40 AM EDT [facility] CO2 24.0 22.0 - 29.0 mmol/L 04/05/2025 4:40 AM EDT [facility] Calcium 7.8(L) 8.6 - 10.5 mg/dL 04/05/2025 4:40 AM EDT [facility] BUN/Creatinine Ratio 18.8 7.0 - 25.0 04/05/2025 4:40 AM EDT [facility] Anion Gap 9.0 5.0 - 15.0 mmol/L 04/05/2025 4:40 AM EDT [facility] eGFR 105.2 >60.0 mL/min/1.7 3 04/05/2025 4:40 AM EDT [facility] Blood Venipuncture / Unknown 04/05/2025 3:54 AM EDT 04/05/2025 4:15 AM EDT [facility] - 04/05/2025 4:40 AM [...] BLOOD ORDERABLES Final Re sult [facility]
[address] [place] [address], * (ABNORMAL) aPTT (04/05/2025 12:18 AM EDT) PTT 33.6(L) 60.0 - 90.0 seconds 04/05/2025 12:53 AM EDT [facility] Blood Venipuncture / Unknown 04/05/2025 12:18 AM EDT 04/05/2025 12:37 AM EDT [facility] - 04/05/2025 12:53 AM EDT PTT = The equivalent PTT values for the therapeutic range of heparin levels at 0.3 to 0.5 U/ml are 60 to 70 seconds. [employer] Pharm[employer] LAB BLOOD ORDERABLES Final R esult [facility]
[address] [place] [address], [place] [phone] * (ABNORMAL) Protime-INR (04/05/2025 12:18 AM EDT) Protime 15.9(H) 12.2 - 15.3 Seconds 04/05/2025 12:53 AM EDT [facility] INR 1.19(H) 0.89 - 1.12 04/05/2025 12:53 AM EDT [facility] Blood Venipuncture / Unknown 04/05/2025 12:18 AM EDT 04/05/2025 12:37 AM EDT [facility] LAB BLOOD ORDERABLES Final R esult Performing Organization Address [facility] Co de Phone Number [facility]
[address] [place] [address], [place] [phone] * Heparin Anti-Xa (04/05/2025 12:18 AM EDT) Pathologist [facility] Heparin Anti-Xa ([facility]) 0.39 0.30 - 0.70 IU/ml 04/05/2025 12:54 AM EDT [facility] Blood Venipuncture / Unknown 04/05/2025 12:18 AM EDT 04/05/2025 12:37 AM EDT [facility] LAB BLOOD ORDERABLES Final R esult Performing Organization Address City/[facility]/ZIP Co de Phone Number [facility]
[address] [place] [address], [place] [phone] * MRI Tibia Fibula Right With & [...] MD 04/04/2025 11:00 PM EDT Workstation ID: [id number] Narrative 04/04/2025 11:00 PM EDT MRI TIBIA [...] MD 04/04/2025 11:00 PM EDT Workstation ID: [id number] Leonora Shepherd MD IMG MRI ORDERABLES Final Resu lt * POC Creatinine (04/04/2025 2:49 PM EDT) Creatinine 1.10 0.60 - 1.30 mg/dL 04/07/2025 7:14 PM EDT [facility] Comment:Serial Number: [id number] Venous Blood 04/04/2025 2:49 PM EDT 04/07/2025 7:14 PM EDT Jason Álvarez DO POINT OF CARE TEST ORDERABLES Fi nal Result [facility]
[address] [place] [address], [place] [phone] * (ABNORMAL) CBC Auto Differential (04/04/2025 2:47 PM EDT) [facility] Signature WBC 12.72(H) 3.40 - 10.80 10*3/mm3 04/04/2025 2:56 PM EDT [facility] RBC 5.64 4.14 - 5.80 10*6/mm3 04/04/2025 2:56 PM EDT [facility] Hemoglobin 15.3 13.0 - 17.7 g/dL 04/04/2025 2:56 PM EDT [facility] Hematocrit 47.9 37.5 - 51.0 % 04/04/2025 2:56 PM EDT [facility] MCV 84.9 79.0 - 97.0 fL 04/04/2025 2:56 PM EDT [facility] MCH 27.1 26.6 - 33.0 pg 04/04/2025 2:56 PM EDT [facility] MCHC 31.9 31.5 - 35.7 g/dL 04/04/2025 2:56 PM EDT [facility] RDW 13.1 12.3 - 15.4 % 04/04/2025 2:56 PM EDT [facility] RDW-SD 40.3 37.0 - 54.0 fl 04/04/2025 2:56 PM EDT [facility] MPV 9.4 6.0 - 12.0 fL 04/04/2025 2:56 PM EDT [facility] Platelets 232 140 - 450 10*3/mm3 04/04/2025 2:56 PM EDT [facility] Neutrophil % 74.9 42.7 - 76.0 % 04/04/2025 2:56 PM EDT [facility] Lymphocyte % 13.1(L) 19.6 - 45.3 % 04/04/2025 2:56 PM EDT [facility] Monocyte % 11.2 5.0 - 12.0 % 04/04/2025 2:56 PM EDT [facility] Eosinophil % 0.4 0.3 - 6.2 % 04/04/2025 2:56 PM EDT [facility] Basophil % 0.2 0.0 - 1.5 % 04/04/2025 2:56 PM EDT [facility] Immature Grans % 0.2 0.0 - 0.5 % 04/04/2025 2:56 PM EDT [facility] Neutrophils, Absolute 9.52(H) 1.70 - 7.00 10*3/mm3 04/04/2025 2:56 PM EDT [facility] Lymphocytes, Absolute 1.66 0.70 - 3.10 10*3/mm3 04/04/2025 2:56 PM EDT [facility] Monocytes, Absolute 1.43(H) 0.10 - 0.90 10*3/mm3 04/04/2025 2:56 PM EDT [facility] Eosinophils, Absolute 0.05 0.00 - 0.40 10*3/mm3 04/04/2025 2:56 PM EDT [facility] Basophils, Absolute 0.03 0.00 - 0.20 10*3/mm3 04/04/2025 2:56 PM EDT [facility] Immature Grans, Absolute 0.03 0.00 - 0.05 10*3/mm3 04/04/2025 2:56 PM EDT [facility] nRBC 0.0 0.0 - 0.2 /100 WBC 04/04/2025 2:56 PM EDT [facility] Blood Venipuncture / Unknown 04/04/2025 2:47 PM EDT 04/04/2025 2:52 PM EDT us Mario Crowley DO LAB BLOOD ORDERABLES Fin al Result [facility]
[address] [place] [address], * (ABNORMAL) C-reactive Protein (04/04/2025 2:47 PM EDT) Pathologist [facility] C-Reactive Protein 8.57(H) 0.00 - 0.50 mg/dL 04/04/2025 3:26 PM EDT [facility] Blood Venipuncture / Unknown 04/04/2025 2:47 PM EDT 04/04/2025 2:52 PM EDT Mario Ortiz Keo LAB BLOOD ORDERABLES Fin al Result [facility]
[address] [place] [address], * (ABNORMAL) Sedimentation Rate (04/04/2025 2:47 PM EDT) [facility] Sed Rate 51(H) 0 - 15 mm/hr 04/04/2025 3:06 PM EDT [facility] Blood Venipuncture / Unknown 04/04/2025 2:47 PM EDT 04/04/2025 2:52 PM EDT Mario Ortiz Keo LAB BLOOD ORDERABLES Fin al Result Performing Organization Address City/[facility]/ZIP Co de Phone Number [facility]
[address] [place] [address], * Comprehensive Metabolic Panel (04/04/2025 2:47 PM EDT) [facility] Glucose 90 65 - 99 mg/dL 04/04/2025 3:26 PM EDT [facility] BUN 18.3 6.0 - 20.0 mg/dL 04/04/2025 3:26 PM EDT [facility] Creatinine 0.94 0.76 - 1.27 mg/dL 04/04/2025 3:26 PM EDT [facility] Sodium 136 136 - 145 mmol/L 04/04/2025 3:26 PM EDT [facility] Potassium 3.8 3.5 - 5.2 mmol/L 04/04/2025 3:26 PM EDT [facility] Chloride 100 98 - 107 mmol/L 04/04/2025 3:26 PM EDT [facility] CO2 25.3 22.0 - 29.0 mmol/L 04/04/2025 3:26 PM EDT [facility] Calcium 8.6 8.6 - 10.5 mg/dL 04/04/2025 3:26 PM EDT [facility] Total Protein 7.3 6.0 - 8.5 g/dL 04/04/2025 3:26 PM EDT [facility] Albumin 4.1 3.5 - 5.2 g/dL 04/04/2025 3:26 PM EDT [facility] ALT (SGPT) 26 1 - 41 U/L 04/04/2025 3:26 PM EDT [facility] AST (SGOT) 25 1 - 40 U/L 04/04/2025 3:26 PM EDT [facility] Alkaline Phosphatase 106 39 - 117 U/L 04/04/2025 3:26 PM T [facility] Total Bilirubin 1.0 0.0 - 1.2 mg/dL 04/04/2025 3:26 PM EDT [facility] Globulin 3.2 gm/dL 04/04/2025 3:26 PM T [facility] Comment:Calculated Result A/G Ratio 1.3 g/dL 04/04/2025 3:26 PM EDT [facility] BUN/Creatinine Ratio 19.5 7.0 - 25.0 04/04/2025 3:26 PM T [facility] Anion Gap 10.7 5.0 - 15.0 mmol/L 04/04/2025 3:26 PM T [facility] eGFR 102.5 >60.0 mL/min/1.7 3 04/04/2025 3:26 PM [facility] Blood Venipuncture / Unknown 04/04/2025 2:47 PM EDT 04/04/2025 2:52 PM EDT Narrative [facility] - 04/04/2025 3:26 PM EDT [...] BLOOD ORDERABLES Fin al Result [facility]
[address] [place] [address], documented in this encounter Visit Diagnoses Diagnosis [...] Protocol Open Order & Select [facility] Electrolyte Replacement Protocol Algorithm to View Details [...] Protocol Open Order & Select [facility] Electrolyte Replacement Protocol Algorithm to View Details [...] Salazar, KELL)1943 (Given - Provider: Anahy Marcelino, [employer])2129 (Canceled Entry - Provider: Anahy Marcelino [employer] - Comment: previously given) 0837 (Given - [...] for a lower pain scale. ([facility]) If given for pain, use the [...] Continuous Medication Order 04/09/2025 04/10/2025 04/11/2025 heparin 29080 units/250 mL (100 units/mL) in 0.45 % [...] Protocol Open Order & Select [facility] Electrolyte Replacement Protocol Algorithm to View Details [...] documented as of this encounter Care Teams Infection Preventionist Relationship Specialty Start Date End Date Provider, [place] [address] PCP - General 05/09/23 documented as of this encounter
--- OUTSIDE RECORDS SUMMARY | 2025-04-08 15:34 | XMS_ITS | Encounter Summary ---
Author Organization [facility] Address [address] [place] [address] Care Team Providers Care Ground Crew Linesman Name Role Phone Provider, No Known Primary Care Provider Unavail able Reason for Visit * Auth/Cert Specialty Diagnoses / Procedures Referred By Bulmaro muniz Referred To Contact Diagnoses Right BKA infection Referral ID Status Reason Start Date Expiration Date Visits Re quested Visits Authorized [id number] 1 1 Encounter Details Date Type Department Care Team (Late st Contact Info) Description 04/08/2025 3:34 PM EDT Anesthesia Event [facility] OR [address] [place] [address] Ulises Hoffman MD [address] [place] [address] Jairo Brooks MD [address] [place] [address] Anesthesia Record Procedure Summary Procedure Name Responsible [...] Recorded In the past 12 months has [employer], oil, or water [employer] threatened to shut off services in your [...] or training? 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
[2025-05-07 08:55] VITALS: BP 124/68; PULSE 71; RESP 18; TEMP 36.7; O2SAT 99
[2025-05-07] MEDS: SODIUM CHLORIDE 0.9% 10ML FLUSH SYRINGE 10 ML IV (08:55)
[2025-05-07] MEDS: DAPTOmycin 1,000 MG in 0.9 % SODIUM CHLORIDE 50 ML 100 MG IV (08:55)
--- OUTSIDE RECORDS SUMMARY | 2025-05-07 09:10 | XMS_ITS | Clinical Summary ---
Author Organization [facility] Address [address] [place] [address] Phone Care Team Providers Care Furnace Brazer Name Role Phone Unavailable Unavailable Conditions or Problems No information available. Medications No information available. Medications Administered No information available. Allergies, Adverse Reactions, Alerts No information available. Results No information available. Plan of Care No information available. Procedures No information available. Vital Signs No information available. Immunizations No information available. Advance Directives No information available.
--- OUTSIDE RECORDS SUMMARY | 2025-05-07 09:10 | XMS_ITS | Continuity of Care Document ---
Author Organization [facility] Infectious Disease -105 Address [address] [facility] [place] [address] Care Team Providers Care Energy Project Engineer Name Role Phone SYBIL WILLIAM Primary Care Provider [phone] Assessment No assessment recorded. Plan of Treatment Reminders Order Date Submit Date Provider Last Modified By Organization Details Last Modified Time Details Appointments Establish ed Visit 15 min 2024 10:15A M Randy Torres MD Not available Not available Not available Lab None recorded. Referral None recorded. Procedures None recorded. Surgeries None recorded. Imaging None recorded. Medication Orders doxycycli ne hyclate 100 mg capsule 2024 025 [facility], [address], [address], 05/05/2025 10:47:50 Patient TargetsNo targets recorded. Patient InstructionsNo instructions recorded. Reason for Referral None Reported. Results Created Date Observation Date Name Description Value Unit Range Abnormal Flag Note LastModifiedBy Organization Detail LastModifiedTime Result Notes None recorded. Problems Name Problem SNOMED Code Status Onset Date Resolution Date Notes Provider Name and Address Organization Details Recorded Time Methicillin resistant Staphylococ cus aureus infection 957152224 Active 2023 YVON Palomo [facility] & [place] 10:16:00 High risk medication monitoring indicated 8402073997377 9103 Active 2023 YVON Palomo [facility] & [place] 10:16:36 Problem Notes None recorded. Procedures Surgical History Date Name Laterality Status Provider Name and Address Organization Details Recorded Time 03/26/20 24 Venipuncture cancelled Luci Ag PA-C [address] , [place], [address], [facility] & [place] 03/18/2024 14:56:10 10/24/19 24 Venipuncture completed Luci Ag PA-C [address], [place], [address], [facility] & [place] 10/23/2023 10:53:19 07/25/19 24 Venipuncture completed [facility] & [place] 07/25/2023 14:41:20 amputation of lower limb completed [facility] & [place] 07/25/2023 13:57:05 Imaging Results None recorded. Procedure Notes None recorded. Medical Equipment None Reported. Allergies Allergen ID Allergen Name Allergen Category Reaction Reaction Severity Criticality Documentation Date Start Date Code Code System Note Provider Name and Address Organization Details Recorded Time 266435 cefdinir medicatio n Not available Not available Not available 06/02/2023 58752 RxNorm Isabel Kay [facility] & [place] 10:06:00 Medications Name Sig Start Date Stop [...] Not Available doxycycline hyclate 100 mg capsule Take one capsule by mouth twice per day 2024 active Not Available Not Available Not Avai lable oxybutynin chloride ER 10 mg tablet,exte nded release 24 hr 05/05 completed Not Available Not Available Not Available lisinopril 20 mg tablet 05/05 completed Not Available Not Available Not Available sulfamethox azole 800 mg-trimetho prim 160 mg tablet 07/25 completed Not Available Not Available Not Available ondansetron 8 mg disintegrat ing tablet 07/25 completed Not Available Not Available Not Available triamcinolo ne acetonide 0.025 % topical cream 07/25 completed Not Available Not Available Not Available tamsulosin 0.4 mg capsule 05/05 completed Not Available Not Available Not Available [...] Available Not Available sertraline 50 mg tablet 05/05 completed Not Available Not Available Not Available amoxicillin 875 mg-potassiu m clavulanate 125 mg tablet 05/05 completed Not Available Not Available Not Available Ventolin [...] oin monohydrate /macrocryst als 100 mg capsule 05/05 completed Not Available Not Available Not Available omega-3 acid ethyl esters 1 gram capsule 05/05 completed Not Available Not Available Not Available hydrochloro thiazide 12.5 mg tablet active Not Available Not Available Not Available FeroSul 325 mg (65 mg iron) tablet active Not Available Not Available Not Available [facility] 10 billion cell-200 mg sprinkle capsule [...] No t Available Vitals Date Recorded Body height Heart rate Oxygen saturation Oxygen saturation in Arterial blood by Pulse oximetry Body mass index (BMI) Body weight Body temperature Systolic And Diastolic Provider Name and Address Organization Details Last Updated DateTime 180.34 cm 90 /min 94 % 94 % 41.8 kg/m2 620879. 71 g 97.5 [degF] 120/70 mm[Hg] Amy Farnsworth [facility] & [place] 10:30:54 Social History Question Answer Notes LastModified by Organizat ion Details LastModified Time Tobacco Smoking Status Never Smoker [facility] & [place] 06/02/2023 10:06:28 Do You Have An Advance Directive? No [email or web address] Information not available 04/28/2025 Are You Blind Or Do You Have Difficulty Seeing? No [email or web address] Information not available 04/28/2025 What Was The Date Of Your Most Recent Tobacco Screening? 04/20/2025 [email or web address] Information not available 04/28/2025 Are You Passively Exposed To Smoke? No [email or web address] Information not available 04/28/2025 Sex: Unknown Functional Status Question Answer Note LastModified by Organizat ion Details LastModified Time Do you use any illicit or recreational drugs? No [email or web address] Information not available 07/25/2023 What is your level of alcohol consumption? None [email or web address] Information not available 04/28/2025 Mental Status None recorded. Family History Nothing Reported. Medical History Condition Response Clotting Disorder Y Back Problems Y Hypertension Y Immunizations Vaccine Type Date Status Note Provider Nam kirt and Address Organization Details Recorded Time Td (adult), 2 Lf tetanus toxoid, preservative free, adsorbed 6 completed Sarah Santiagomayank [facility], [place] - [facility] - [place] & [place] 07/25/2023 13:54:15 Past Encounters Encounter ID Performer Location Encounter Start Date Encounter Closed Date Diagnosis/Indication Diagnosis SNOMED-CT Code Diagnosis ICD10 Code Diagnosis IMO Codes Diagnosis Note [id number] Randy Torres MD [facility] Infectiou s Disease -[address] [place] [address] 04/28/2025 11:00:57 04/28/2025 11:33:23 Osteomyelitis 52911234 M86.9 730700 This patient has a recurrentc hronic osteomyeli [...] week. Methicilli n resistant Staphylococcus aureus infection 040666221 B95.62 8036542 As above [id number] Randy Torres MD [facility] Disease -[address] [place] [address] 05/05/2025 10:21:03 05/05/2025 10:37:01 Chronic osteomyelitis of right tibia 1648565974 681766 M86.461 15670024 This is recurrent and involves the right BKA stump. 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 Since his last I and D, he has been on about 4 weeks of intravenou s daptomycin . Based on his exam from today as well as recent laboratory work, I think his infection is controlled . The plan will be to continue at least 2 more weeks of intravenou s daptomycin in total. The tentative stop date will be . after that time, I am going to resume chronic consolidat ion/ suppressiv e doxycyclin e 100 mg p.o. b.i.d. since he recurred off suppressiv e therapy. He will follow up with me in about 2 weeks. I will continue to monitor his laboratory work weekly. I will go ahead and sent his prescripti on for doxycyclin e today. Methicilli n resistant Staphylococcus aureus infection 200077841 A49.02 140082 This is the pathogen as above. Taking hig h risk medication 1442551882 66418 Z79.261 3264198 This is related to the long-term intravenou s daptomycin . I will continue to monitor all of his laboratory parameters weekly, particular ly the total CK level, to rule out any developing rhabdomyol ysis. There is no evidence of such thus far.. Health Concerns Section Related Observation LastModified by Organization Detai ls LastModified Time None Recorded Concern Status LastModified by Organization Details LastModified Time None Recorded Payers Encounter Date Sequence Insurance Name Policy Number Policy Brantley Covered Member ID Brantley Member ID Guarantor Name 05/05/2025 2 MEDICAID-[facility] CHO[facility] - FFS/TRADITIO NAL Won Dennis [id number] Won Dennis 05/05/2025 1 MEDICARE-[place]MEDICARE[place] Won Dennis [id number] Won Dennis Notes Date Note Type Note Provider Name and Address Organization Details Recorded Time 05/05/2025 text/html ROS as noted in the HPI This is a 44-year-old white male who is following up with me for a 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 This is due to MRSA once again. For about the past 4 weeks, he has been on intravenous daptomycin since his last debridement. He is here for follow-up. He states he is doing well. He has had no side effects with the daptomycin, including no nausea, rashes, or muscle aches. He is getting it once daily at the infusion center in [facility]. His stump is doing well. All surgical incisions remain healed. There has been no undue pain or swelling. No redness. No drainage. Randy Torres MD [address] [facility], [place], [address], [place] - [facility] - [place] & [place] 05/05/2025 10:41:36
--- OUTSIDE RECORDS SUMMARY | 2025-05-07 09:10 | XMS_ITS | Patient Health Record ---
[facility] [address] [facility] [address] [place] [id number] Care Team Providers Care Solar Sales Associate Name Role Phone Zeeshan Salazar Primary Care Provider [phone] Allergies No Known Allergies Medications Medication SIG [...] W/U Status Risk Notes Problem Essential hypertension (13304525) HTN [Hypertension] (401.9) Active confirmed appears resolved Problem Hypothyroidism (43534312) Hypothyroidism NOS (244.9) Active confirmed Problem Hyperlipidemia (99949043) Hyperlipidemia (272.4) Active confirmed Problem Constipation (39599839) Constipation, unspecified constipation type (K59.00) Active confirmed Problem History of pulmonary embolism on long-term anticoagulation therapy (56814728932328020 ) Hx pulmonary embolism (Z86.711) Active confirmed Problem Long-term current use of anticoagulant (781850258) 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 (Z79.01) Active confirmed Problem Adjustment disorder with anxious mood (64899561) Adjustment disorder with anxious mood (F43.22) Active confirmed Problem History of pulmonary embolus (399281129) History of pulmonary embolus (PE) (Z86.711) Active confirmed Problem Methicillin resistant Staphylococcus aureus infection (disorder) (250416291) Infection of wound due to methicillin resistant Staphylococcus aureus (MRSA) (A49.02) Active confirmed Problem Arthritis of knee (389872383) Arthritis of knee (M17.10) Active confirmed Problem Amputated below knee (106287690) Status post below knee amputation of right lower extremity (Z89.511) Active confirmed Problem Gastroesophageal reflux disease (136278724) Gastroesophageal reflux disease, unspecified whether esophagitis present [...]
--- OUTSIDE RECORDS SUMMARY | 2025-05-07 09:11 | XMS_ITS | Data Portability ---
Author Organization [place] [facility] [place] [facility] Address [address] [place] [id number] Care Team Providers Care Ambulatory Care Name Role Phone SYBIL WILLIAM Primary Care Provider Assessment No assessment recorded. Plan of Treatment Reminders Order Date Submit Date Provider Last Modified By Organization Details Last Modified Time Details Appointments Establish ed Visit 15 min 2024 10:15A Jadyn Torres MD Not available Not available Not available Lab C-reactiv e protein, quantitat nasim, serum or plasma [address] Lab, [address] [facility], [place], [address], 05/02/2024 17:36:31 ESR (erythroc yte sedimenta tion rate), blood [address] Lab, [address] [facility], [place], [address], 05/02/2024 17:36:31 C-reactiv e protein, quantitat nasim, serum or plasma 2023 024 [place] [address] [facility], [address], [address], [place], [address], 11/01/2023 08:08:32 ESR (erythroc yte sedimenta tion rate), blood 2023 024 [place] [address] [facility], [address], [address], [place], [address], 11/01/2023 08:08:32 CBC w/ auto diff 2023 024 [facility], [address], [place], [address], 10/24/2023 16:12:13 CMP, serum or plasma 2023 024 [facility], [address], [place], [address], 10/24/2023 16:42:07 Referral None recorded. Procedures None recorded. Surgeries None recorded. Imaging None recorded. Medication Orders doxycycli ne hyclate 100 mg capsule 2024 025 [facility], [address], [address], 05/05/2025 10:47:50 doxycycli ne hyclate 100 mg capsule [address], [address], [address], 05/05/2025 10:31:23 Patient TargetsNo targets recorded. Patient InstructionsNo instructions recorded. Reason for Referral None Reported. Results Created Date Observation Date Name Description Value Unit Range Abnormal Flag Note LastModifiedBy Organization Detail LastModifiedTime 10/24/1910/24/2023 CBC AUTO W DIFF WBC 6.9 K/uL 4.0-10 .5 Not Available [facility] ([facility]) [address], [place], [address], 10/24/2023 16:12:13 10/24/19 24 10/24/2023 CBC AUTO W DIFF RBC 5.7 M/mm3 4.7-6. 1 Not Available [facility] ([facility]) [address], [place], [address], 10/24/2023 16:12:13 10/24/19 24 10/24/2023 CBC AUTO W DIFF HGB 14.7 gm/dL 13.5-1 8.0 Not Available [facility] ([facility]) [address] , [place], [address], 10/24/2023 16:12:13 10/24/19 24 10/24/2023 CBC AUTO W DIFF HCT 46.0 % 42.0-5 2.0 Not Available [facility] ([facility]) [address] , [place], [address], 10/24/2023 16:12:13 10/24/19 24 10/24/2023 CBC AUTO W DIFF MCV 80.4 fL 78-100 Not Available [facility] ([facility]) [address] , [place], [address], 10/24/2023 16:12:13 10/24/19 24 10/24/2023 CBC AUTO W DIFF MCH 25.7 pg 27-31 low Not Available [facility] ([facility]) [address] , [place], [address], 10/24/2023 16:12:13 10/24/19 24 10/24/2023 CBC AUTO W DIFF MCHC 32.0 g/dL 32-36 Not Available [facility] ([facility]) [address] , [place], [address], 10/24/2023 16:12:13 10/24/19 24 10/24/2023 CBC AUTO W DIFF RDW 14.3 % 11.5-1 4.0 high Not Available [facility] ([facility]) [address] [place], [address], 10/24/2023 16:12:13 10/24/19 24 10/24/2023 CBC AUTO W DIFF platelet count 258 K/uL 150-45 0 Not Available [facility] ([facility]) [address] [facility] [place], [address], 10/24/2023 16:12:13 10/24/19 24 10/24/2023 CBC AUTO W DIFF MPV 9.6 fL 6-9.5 high Not Available [facility] ([facility]) [address], [place], [address], 10/24/2023 16:12:13 10/24/19 24 10/24/2023 CBC AUTO W DIFF neutrophil% 70.1 % 43-65 high Not Available [facility] ([facility]) [address], [place], [address], 10/24/2023 16:12:13 10/24/19 24 10/24/2023 CBC AUTO W DIFF lymphocyte% 18.4 % 20.5-4 5.5 low Not Available [facility] ([facility]) [address], [place], [address], 10/24/2023 16:12:13 10/24/19 24 10/24/2023 CBC AUTO W DIFF monocyte% 8.7 % 5.5-11 .7 Not Available [facility] ([facility]) [address] [facility], [place], [address], 10/24/2023 16:12:13 10/24/19 24 10/24/2023 CBC AUTO W DIFF eosinophil% 2.3 % 0.9-2. 9 Not Available [facility] ([facility]) [address] [place], [address], 10/24/2023 16:12:13 10/24/19 24 10/24/2023 CBC AUTO W DIFF basophil% 0.4 % 0.2-1. 0 Not Available [facility] ([facility]) [address] [place], [address], 10/24/2023 16:12:13 10/24/19 24 10/24/2023 CBC AUTO W DIFF immature granulocytes % 0.1 % 0.0-0. 8 Not Available [facility] ([facility]) [address], [place], [address], 10/24/2023 16:12:13 10/24/19 24 10/24/2023 CBC AUTO W DIFF nucleated red blood cells % 0.0 % Not Available [facility] ([facility]) [address], [place], [address], 10/24/2023 16:12:13 10/24/19 24 10/24/2023 CBC AUTO W DIFF neutrophil# 4.8 K/uL 2.2-4. 8 Not Available [facility] ([facility]) [address] [facility], [place], [address], 10/24/2023 16:12:13 10/24/19 24 10/24/2023 CBC AUTO W DIFF lymphocyte# 1.3 cell/ mcL 1.3-2. 9 Not Available [facility] ([facility]) [address], [place], [address], 10/24/2023 16:12:13 10/24/19 24 10/24/2023 CBC AUTO W DIFF monocyte# 0.6 cell/ mcL 0.3-0. 8 Not Available [facility] ([facility]) [address] [facility], [place], [address], 10/24/2023 16:12:13 10/24/19 24 10/24/2023 CBC AUTO W DIFF eosinophil# 0.2 cell/ mcL 0-0.2 Not Available [facility] ([facility]) [address] [facility], [place], [address], 10/24/2023 16:12:13 10/24/19 24 10/24/2023 CBC AUTO W DIFF basophil# 0.0 cell/ mcL 0.0-1. 0 Not Available [facility] ([facility]) [address] [place], [address], 10/24/2023 16:12:13 10/24/19 24 10/24/2023 CBC AUTO W DIFF immature gramulocytes # 0.01 K/uL Not Available [facility] ([facility]) [address], [place], [address], 10/24/2023 16:12:13 10/24/19 24 10/24/2023 CBC AUTO W DIFF nucleated red blood cells # 0.00 K/uL Not Available [facility] ([facility]) [address] , [place], [address], 10/24/2023 16:12:13 10/24/19 24 10/24/2023 CBC AUTO W DIFF manual differential NO Not Available [facility] ([facility]) [address] , [place], [address], 10/24/2023 16:12:13 10/24/19 24 10/24/2023 COMP METAB OLIC PANEL sodium 139 mmol/ L 136-14 5 Not Available [facility] ([facility]) [address], [place], [address], 10/24/2023 16:42:07 10/24/19 24 10/24/2023 COMP METAB OLIC PANEL potassium 4.0 mmol/ L 3.6-5. 0 Not Available [facility] ([facility]) [address] , [place], [address], 10/24/2023 16:42:07 10/24/19 24 10/24/2023 COMP METAB OLIC PANEL chloride 104 mmol/ L 98-107 Not Available [facility] ([facility]) [address] [place], [address], 10/24/2023 16:42:07 10/24/19 24 10/24/2023 COMP METAB OLIC PANEL carbon dioxide 28.1 mmol/ L 21.0-3 2.0 Not Available [facility] ([facility]) [address], [place], [address], 10/24/2023 16:42:07 10/24/19 24 10/24/2023 COMP METAB OLIC PANEL anion gap 10.9 Not Available [facility] ([facility]) [address], [place], [address], 10/24/2023 16:42:07 10/24/19 24 10/24/2023 COMP METAB OLIC PANEL glucose 99 mg/dL 70-120 Not Available [facility] ([facility]) [address], [place], [address], 10/24/2023 16:42:07 10/24/19 24 10/24/2023 COMP METAB OLIC PANEL BUN 16 mg/dL 7-18 Not Available [facility] ([facility]) [address] , [place], [address], 10/24/2023 16:42:07 10/24/19 24 10/24/2023 COMP METAB OLIC PANEL creatinine 0.9 mg/dL 0.6-1. 3 Not Available [facility] ([facility]) [address] , [place], [address], 10/24/2023 16:42:07 10/24/19 24 10/24/2023 COMP METAB OLIC PANEL glomerular filtration rate >60 mlper min 60- Not Available [facility] ([facility]) [address], [place], [address], 10/24/2023 16:42:07 10/24/19 24 10/24/2023 COMP METAB OLIC PANEL total protein 7.2 g/dL 6.4-8. 2 Not Available [facility] ([facility]) [address] , [place], [address], 10/24/2023 16:42:07 10/24/19 24 10/24/2023 COMP METAB OLIC PANEL albumin 3.6 g/dL 3.4-5. 0 Not Available [facility] ([facility]) [address], [place], [address], 10/24/2023 16:42:07 10/24/19 24 10/24/2023 COMP METAB OLIC PANEL globulin 3.6 Not Available [facility] ([facility]) [address], [place], [address], 10/24/2023 16:42:07 10/24/19 24 10/24/2023 COMP METAB OLIC PANEL alb/glob ratio 1.0 0.7-2 Not Available [facility] ([facility]) [address], [place], [address], 10/24/2023 16:42:07 10/24/19 24 10/24/2023 COMP METAB OLIC PANEL calcium 8.6 mg/dL 8.5-10 .5 Not Available [facility] ([facility]) [address], [place], [address], 10/24/2023 16:42:07 10/24/19 24 10/24/2023 COMP METAB OLIC PANEL bilirubin total 0.50 mg/dL 0.10-1 .00 Not Available [facility] ([facility]) [address], [place], [address], 10/24/2023 16:42:07 10/24/19 24 10/24/2023 COMP METAB OLIC PANEL AST (SGOT) 23 U/L 0-37 Not Available [facility] ([facility]) [address], [place], [address], 10/24/2023 16:42:07 10/24/19 24 10/24/2023 COMP METAB OLIC PANEL ALT (SGPT) 39 U/L 0-65 Not Available [facility] ([facility]) [address] , [place], [address], 10/24/2023 16:42:07 10/24/19 24 10/24/2023 COMP METAB OLIC PANEL alk phosphatase 80 U/L 46-116 Not Available [facility] ([facility]) [address] [facility], [place], [address], 10/24/2023 16:42:07 10/25/19 24 10/26/2023 SEDIM ENTAT ION RATE- WESTE RGREN sedimentatio n rate-westerg los 5 mm/HR 0-15 Not Available [facility] ([facility]) [address] [facility], [place], [address], 11/03/2023 15:11:19 10/25/19 24 10/27/2023 C-CHANA CTIVE PROTE IN, QUANT C-reactive protein, quant 15 mg/L 0-10 above high normal Not Available [facility] ([facility]) [address] [place], [address], 11/03/2023 15:11:21 04/23/20 24 04/23/2024 C-CHANA CTIVE PROTE IN (CRP) C-reactive protein, quant 1.1 mg/dL 0.05-0 .300 high Not Available [facility] ([facility]) [address] [facility], [place], [address], 04/23/2024 10:36:29 04/23/20 24 04/23/2024 SED RATE sed rate auto 4 0-15 Not Available [facility] ([facility]) [address] [facility], [place], [address], 04/23/2024 10:54:51 11/20/19 24 11/20/2023 arti melgar x US lwr RT ext [facility] it Hospit al [address] [place] [address] Phone: Fax: Name: GAYATHRI DENNIS Exam Date: 024 : 1979 Age 43 years Gender : M Access ion: [id number] Physic lou: THAO BRADFORD [facility]ili [place]: [place] Facili ty HSV: Outpat ient Exam: [...] Thank you for referr GAYATHRI Rodríguez to [facility]. Legall y authen ticate d by YANELIS Macias IVO 11-19 11:51: 02 CC'ed Logic: Orderi ng Provid er: SPENCER OSUNA Attend ing Provid er: SPENCER OSUNA Referr ing Provid er: SPENCER OSUNA Admitt ing Provid er: SPENCER [email or web address] [facility] [address] [facility], [place], [address], 11/20/2023 12:58:54 11/20/19 24 11/20/2023 CT, angio gram, chest , w/ contr ast [facility] Hospit [facility] [address] [place] [address] Phone: Fax: Name: GAYATHRI DENNIS Exam Date: : 1979 Age 43 years Gender : M Access ion: [id number] Physic lou: THAO BRADFORD Facili ty: [facility] Facili ty HSV: Outpat ient Exam: CTA CHEST PE EXAM: CT PULMON MORGAN ANGIOG LUIS ANTONIO INDICA TION: SOB TECHNI QUE: Helica l CT chest with IV contra st, optimi zed for visual izatio n of pulmon morgan arteri es was perfor med. Axial images [...] COMPAR MIRANDA: None FINDIN GS: CHEST: Pulmon morgan Angiog luis antonio: Inadeq uate opacif icatio n of the subseg mental pulmon morgan arteri es. No obviou s acute pulmon morgan embolu s. Thyroi d: Small hypode nse [...] IMPRES CHRISTIE: No defini te acute pulmon morgan embolu s. Mild bronch itis with right lower lobe nodula r opacit ies measur ing up to 9 mm which may be infect ious. Dictat ed By: Jose Luciano Transc ribed By: Jose Sebastian Transc ribed On: 12:06 PM Legall y authen ticate d by YANELIS Macias IVO 11-19 12:06: 58 Electr onical ly signed by: Jose Luciano Thank you for referr ing GAYATHRI DENNIS to [facility]. Legall y authen ticate d by YANELIS Macias IVO 11-19 12:06: 58 CC'ed Logic: Orderi ng Provid er: SPENCER OSUNA Attend ing Provid er: SPENCER OSUNA Referr ing Provid er: SPENCER OSUNA Admitt ing Provid er: SPENCER OSUNA [email or web address] [facility] [address] [place] [address], [address], 11/21/2023 16:18:56 Result Notes Documentation Provider Name and Address Organization Details Recorded Time Ct, Angiogram, Chest, W/ Contrast : [place] [address] Name: MITCHELLWON LANDERS Exam Date: 11/20/2023 : 1980 Age 43 years Gender: M Physician: THAO BARNES Facility: [facility] Facility HSV: Outpatient Exam: CTA [...] Thank you for referring WON DENNIS to [facility]. Legally authenticated by RENALDO DÍAZ 2023-11-20 12:06:58 CC'ed Logic: Ordering Provider: MOLLY OSUNA Attending Provider: MOLLY OSUNA Referring Provider: MOLLY OSUNA Admitting Provider: YVON De Jesus [facility] & [place] 11/21/2023 16:18:56 Problems Name Problem SNOMED Code Status Onset Date Resolution Date Notes Provider Name and Address Organization Details Recorded Time Methicillin resistant Staphylococ cus aureus infection 711468138 Active 2023 YVON Palomo [facility] & [place] 10:16:00 High risk medication monitoring indicated 9124652245618 9103 Active 2023 YVON Palomo [facility] [place] [facility] [place] 10:16:36 Problem Notes None recorded. Procedures Surgical History Date Name Laterality Status Provider Name and Address Organization Details Recorded Time 03/26/20 24 Venipuncture cancelled Thao Barnes PA-C [address], [place], [address], [facility] & [place] 03/18/2024 14:56:10 10/24/19 24 Venipuncture completed Thao Barnes PA-C [address], [place], [address], [facility] & [place] 10/23/2023 10:53:19 07/25/19 24 [facility] [place] 07/25/2023 14:41:20 amputation of lower limb completed [facility] & [place] 07/25/2023 13:57:05 Imaging Results None recorded. Procedure Notes None recorded. Medical Equipment None Reported. Allergies Allergen ID Allergen Name Allergen Category Reaction Reaction Severity Criticality Documentation Date Start Date Code Code System Note Provider Name and Address Organization Details Recorded Time 483661 cefdinir medicatio n Not available Not available Not available 06/02/2023 95274 RxNorm Isabel Kay [facility] & [place] 10:06:00 Medications Name Sig Start Date Stop [...] active Not Available Not Available Not Available [facility] 10 billion cell-200 mg sprinkle [...] t Available Vitals Date Recorded Body height Body mass index (BMI) Body weight Body temperature Heart rate Oxygen saturation Oxygen saturation in Arterial blood by Pulse oximetry Systolic And Diastolic Provider Name and Address Organization Details Last Updated DateTime 4 182.88 cm 43.3 kg/m2 429319. 97 g 98 [degF] 95 /min 96 % 96 % 137/92 mm[Hg] Sarah Hendersonmayank [facility] & [place] 4 14:44:48 Date Recorded Body height Body mass index (BMI) Body weight Body temperature Oxygen saturation Oxygen saturation in Arterial blood by Pulse oximetry Heart rate Systolic And Diastolic Provider Name and Address Organization Details Last Updated DateTime 4 182.88 cm 43.2 kg/m2 921280. 81 g 98.6 [degF] 95 % 95 % 86 /min 134/84 mm[Hg] Amy Aquino [facility] & [place] 4 08:59:12 Date Recorded Body height Body mass index (BMI) Body weight Body temperature Oxygen saturation Oxygen saturation in Arterial blood by Pulse oximetry Heart rate Systolic And Diastolic Provider Name and Address Organization Details Last Updated DateTime 4 182.88 cm 42.9 kg/m2 583823. 19 g 98 [degF] 94 % 94 % 70 /min 140/80 mm[Hg] Kalie Gibbs [facility] & [place] 4 09:24:00 Date Recorded Heart rate Body height Oxygen saturation Oxygen saturation in Arterial blood by Pulse oximetry Body temperature Body mass index (BMI) Body weight Systolic And Diastolic Provider Name and Address Organization Details Last Updated DateTime 5 85 /min 180.34 cm 94 % 94 % 98.8 [degF] 41.7 kg/m2 025160. 12 g 140/96 mm[Hg] Amy Aquino [facility] & [place] 5 11:13:21 Date Recorded Body height Heart rate Oxygen saturation Oxygen saturation in Arterial blood by Pulse oximetry Body mass index (BMI) Body weight Body temperature Systolic And Diastolic Provider Name and Address Organization Details Last Updated DateTime 5 180.34 cm 90 /min 94 % 94 % 41.8 kg/m2 553279. 71 g 97.5 [degF] 120/70 mm[Hg] Amy SANZ [facility] & [place] 5 10:30:54 Social History Question Answer Notes LastModified by Seanodes Details LastModified Time Tobacco Smoking Status Never Smoker Isabel Abdullahiey [facility] & [place] 06/02/2023 10:06:28 Do You Have An Advance Directive? [email or web address] Information not available 04/28/2025 Are You Blind Or Do You Have Difficulty Seeing? No [email or web address] Information not available 04/28/2025 What Was The Date Of Your Most Recent Tobacco Screening? 04/20/2025 [email or web address] Information not available 04/28/2025 Are You Passively Exposed To Smoke? No [email or web address] Information not available 04/28/2025 Sex: Unknown Functional Status Question Answer Note LastModified by Seanodes Details LastModified Time Do you use any illicit or recreational drugs? No [email or web address] Information not available 07/25/2023 What is your level of alcohol consumption? None [email or web address] Information not available 04/28/2025 Mental Status None recorded. Family History Nothing Reported. Medical History Condition Response Clotting Disorder Y Back Problems Y Hypertension Y Immunizations Vaccine Type Date Status Note Provider Shay moralez and Address Organization Details Recorded Time Td (adult), 2 Lf tetanus toxoid, preservative free, adsorbed 6 completed Sarah jaramillo, [place] - [facility] [place] & [place] 07/25/2023 13:54:15 Past Encounters Encounter ID Performer Location Encounter Start Date Encounter Closed Date Diagnosis/Indication Diagnosis SNOMED-CT Code Diagnosis ICD10 Code Diagnosis IMO Codes Diagnosis Note [id number] Randy Torres MD [facility] Infect[facility] Disease [address] [place] [id number] 06/02/2023 09:54:50 06/02/2023 10:26:43 Osteomyelitis 41192254 M86.9 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 Influenza caused by Influenza A virus 461302463 J09.X2 Resolved.. No further oseltamivi r needed. High risk medication monitoring indicated 7435757672 8808046 Z76.89 Related to the daptomycin . I will check a total CK and continue to follow serial levels of this enzyme to make sure he develops no rhabdomyol ysis. 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 Methicilli n resistant Staphylococcus aureus infection 605514931 A49.02 As above High risk medication monitoring indicated 7820874348 7948663 Z76.89 This is related to the daptomycin . I will continue to monitor his total CK levels closely. 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 Methicilli n resistant Staphylococcus aureus infection 335405804 A49.02 As above Adverse re action to drug 53105749 T50.905A Related to doxycyclin e. This is gastrointe stinal in nature. I will check his liver function testing to make sure he is not developing any hepatotoxi city. I will drop the dose to 100 mg per day. I want him to continue to take it with food. I will re-evaluat e next week. 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 Methicilli n resistant Staphylococcus aureus infection 899188405 A49.02 As above [id number] Thao Barnes PA-C [facility] [address] [place] [address] 07/25/2023 13:39:19 07/26/2023 06:33:52 Deep venous thrombosis 229085367 I82.409 Patient has a history of osteomyeli [...] when patient was hospitaliz ed at [facility] on May 26, 2023 with normal antithromb in 3 activity. No evidence of factor 5 Leiden mutation. Discussed with patient will order additional labs for further evaluation acquired hypercoagu lable disorder today. Discussed will likely continue on least the prophylact ic dose of Eliquis lifelong due to separate occurrence s of blood clots. Pulmonary embolism 06882 003 I26.99 Patient has a history of [...] s of blood clots. Anticoagulant therapy 18 1885394 Z79.01 Patient continues on Eliquis 5 mg 1 tab p.o. b.i.d.. He is tolerating without trouble. Discussed will likely continue on least the prophylact ic dose of Eliquis lifelong due to separate occurrence s of blood clots. [id number] Thao Barnes PA-C [facility] [address] [place] [address] 10/24/2023 14:29:27 10/24/2023 15:33:34 Deep venous thrombosis 414150880 I82.409 Patient has a history of osteomyeli [...] when patient was hospitaliz ed at [facility] on May 26, 2023 with normal [...] Will follow up labs today. Pulmonary embolism 02293 003 I26.99 Patient has a history of [...] follow up labs today. Anticoagulant therapy 18 0535392 Z79.01 Patient continues on Eliquis 5 mg 1 tab p.o. b.i.d.. He is tolerating without trouble. Discussed will continue on least the prophylact ic dose of Eliquis lifelong due to separate occurrence s of blood clots. Will follow up venous duplex of lower extremity and chest CTA to make sure no evidence of embolism before reducing Eliquis dose to 2.5 mg b.i.d. 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 Methicilli n resistant Staphylococcus aureus infection [id number] A49.02 As above High risk medication monitoring indicated [id number] Z76.89 This is related to the chronic suppressiv e doxycyclin e. I reviewed his liver function testing from yesterday. There is no evidence of any hepatotoxi city. I will continue to monitor this at each visit. I also counseled him about the risk of photosensi tivity with doxycyclin e. 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 Methicilli n resistant Staphylococcus aureus infection [id number] A49.02 As above [id number] Randy Torres MD [facility] Infectiou s Disease -105 [address] [facility] [address] [place] [address] 04/28/2025 11:00:57 04/28/2025 11:33:23 Osteomyelitis 56447026 M86.9 [id number] This patient has a recurrentc hronic osteomyeli [...] week. Methicilli n resistant Staphylococcus aureus infection 440506127 B95.62 [id number] As above [id number] Randy Torres MD [facility] Infectiou s Disease -105 [address] [facility] [address] [place] [address] 05/05/2025 10:21:03 05/05/2025 10:37:01 Chronic osteomyelitis of right tibia [id number] M86.461 [id number] This is recurrent and involves the right [...] today. Methicilli n resistant Staphylococcus aureus infection 703173371 A49.02 701357 This is the pathogen as above. Taking hig h risk medication [id number] 36361 Z79.489 0281210 This is related to the long-term intravenou [...] ID Guarantor Name 01/27/2024 1 [place] [id number] Won Dennis [id number] Won Dennis 05/01/2025 2 MEDICAID-[facility] HEALTH CHOICES - FFS/TRADITIONA L Won Dennis [id number] Won Dennis 05/01/2025 1 [place] Won Dennis [id number] Won Dennis 04/28/2025 1 HUMANA Won Dennis [id number] Won Dennis 04/30/2025 3 [employer] (MEDICAID REPLACEMENT - HMO) Won Dennis [id number] Won Dennis Notes Date Note Type Note Provider Name and Address Organization Details Recorded Time 10/24/2023 text/html 43-year-old male presents for evaluation [...] performed when patient was hospitalized at [facility] on May 26, 2023 with normal [...] mg b.i.d. Will follow up labs today. Thao Barnes PA-C [address], [place], [address], [place] - [facility] - [place] & [place] 10/24/2023 15:43:34 10/25/2023 text/html ROS as noted [...] is doing well. Randy Torres MD [address], [place], [address], [facility] 10/25/2023 09:16:07 04/23/2024 text/html ROS [...] the doxycycline well. Randy Torres MD [address], [place], [address], [facility] & [place] 04/23/2024 09:31:22 04/28/2025 text/html ROS as noted in the HPI This is a 44-year-old white male who is following up with mo for a right stump infection due to [...] daptomycin and is now referred back to mo. He has been on intravenous daptomycin for almost 4 weeks. The swelling in his stump has gone down. There is no persisting redness or pain. No fever. No issues tolerating the daptomycin. Randy Torres MD [address], [place], [address], [facility] & [place] 04/28/2025 11:42:44 05/05/2025 text/html ROS as noted in the HPI This is a 44-year-old white male who is following up with mo for a recurrent osteomyelitis of his right [...] once daily at the infusion center in [facility]. His stump is doing well. All surgical incisions remain healed. There has been no undue pain or swelling. No redness. No drainage. Randy Torres MD [address], [place], [address], [facility] - [facility] - [place] & [place] 05/05/2025 10:41:36
--- OUTSIDE RECORDS SUMMARY | 2025-05-07 09:11 | XMS_ITS | Continuity of Care Document ---
Author Organization [facility] Infectious Disease -105 Address [address] [facility] [address] [place] [address] Care Team Providers Care Research Test Engine Operator Name Role Phone SYBIL WILLIAM Primary [...] Time Methicillin resistant Staphylococ cus aureus infection [id number] Active 2023 Amy jaramillo [place] Daja [facility] & [place] 4 10:16:00 High risk medication monitoring indicated [id number] 9103 Active 2023 Amy jaramillo [place] Daja [facility] & [place] 4 10:16:36 Problem Notes None recorded. Procedures Surgical History Date Name Laterality Status Provider Name and Address Organization Details Recorded Time 03/26/20 24 Venipuncture cancelled Luci Ag PA-C [address] , [place], [address], [facility] & [place] 03/18/2024 14:56:10 10/24/19 24 Venipuncture completed Luci Ag PA-C [address] [facility], [place], [address], [facility] & [place] 10/23/2023 10:53:19 07/25/19 24 [facility] [place] 07/25/2023 14:41:20 [facility] lower limb [facility] [place] 07/25/2023 13:57:05 Imaging Results None recorded. Procedure Notes None recorded. Medical Equipment None Reported. Allergies Allergen ID Allergen Name Allergen Category Reaction Reaction Severity Criticality Documentation Date Start Date Code Code System Note Provider Name and Address Organization Details Recorded Time [id number] cefdinir medicatio n Not available Not available Not available 06/02/2023 77371 RxNorm Isabel Kay [facility] & [place] 10:06:00 Medications Name Sig Start Date Stop [...] Not Available Not Available Not Available [facility] 10 billion cell-200 mg sprinkle [...] % 94 % 98.8 [degF] 41.7 kg/m2 559664. 12 g 140/96 mm[Hg] Amy Aquino [facility] & [place] 11:13:21 Social History Question Answer Notes LastModified by [employer] Details LastModified Time Tobacco Smoking Status Never Smoker Isabel Rahul [facility] 06/02/2023 10:06:28 Do You Have An Advance Directive? No [email or web address] Information not available 04/28/2025 Are You Blind Or Do You Have Difficulty Seeing? No [email or web address] Information not available 04/28/2025 What Was The Date Of Your Most Recent Tobacco Screening? 04/20/2025 [email or web address] Information not available 04/28/2025 Are You Passively Exposed To Smoke? No [email or web address] Information not available 04/28/2025 Sex: Unknown Functional Status Question Answer Note LastModified by [employer] Details LastModified Time Do you use any illicit or recreational drugs? No [email or web address] Information not available 07/25/2023 What is your level of alcohol consumption? None [email or web address] Information not available 04/28/2025 Mental Status None recorded. Family History Nothing Reported. Medical History Condition Response Clotting Disorder Y Back Problems Y Hypertension Y Immunizations Vaccine Type Date Status Note Provider Nam e and Address Organization Details Recorded Time Td (adult), 2 Lf tetanus toxoid, preservative free, adsorbed 6 completed Sarah Vidal [facility], [place] - [facility] & [place] 07/25/2023 13:54:15 Past Encounters Encounter ID Performer Location Encounter Start Date Encounter Closed Date Diagnosis/Indication Diagnosis SNOMED-CT Code Diagnosis ICD10 Code Diagnosis IMO Codes Diagnosis Note [id number] Randy Torres MD [facility] Infectiou s Disease -[address] [place] [address] 04/28/2025 11:00:57 04/28/2025 11:33:23 Osteomyelitis 30767619 M86.9 [id number] This patient has a recurrentc hronic osteomyeli [...] week. Methicilli n resistant Staphylococcus aureus infection [id number] B95.62 [id number] As above Health Concerns Section Related Observation LastModified by Organization Detai ls LastModified Time None Recorded Concern Status LastModified by Organization Details LastModified Time None Recorded Payers Encounter Date Sequence Insurance Name Policy Number Policy Brantley Covered Member ID Brantley Member ID Guarantor Name 04/28/2025 2 [place]ALTH CHOICES - FFS/TRADITIONA L Won Dennis [id number] Won Dennis 04/28/2025 3 [employer] [place] (MEDICAID REPLACEMENT - HMO) Won Dennis [id number] Won Sonny Notes Date Note Type Note Provider Name [...] issues tolerating the daptomycin. Randy Torres MD [address] [facility], [place], [address], [facility] [place] & [place] 04/28/2025 11:42:44
--- OUTSIDE RECORDS SUMMARY | 2025-05-07 09:13 | XMS_ITS | Clinical Summary ---
Author Organization [facility] Address [address] [place] [address] Care Team Providers Care Geography Faculty Member Name Role Phone Provider, No Known Primary [...] Discontinue d(Stop Taking at Discharge) Lactobacillus- Inulin ([facility]) capsule Take 200 mg by mouth [...] 3:34 PM EDT Anesthesia [place] [facility] [place] [address] [place] [phone] Ulises Hoffman MD Wells, Jeremy B., MD 04/08/2025 2:45 PM EDT - 04/08/2025 4:04 PM EDT Surgery [facility] OR [address] [place] [address] Sushil Dean Jr., MD [employer] IRR[employer]ATION 04/07/2025 8:36 PM EDT Anesthesia Event [facility] [address] [place] [address] Luci Alonso DO 04/07/2025 6:00 PM EDT - 04/07/2025 6:52 PM EDT Surgery [facility] OR [address] [place] [address] Sushil Dean Jr., MD LEG DEBRIDEMENT, IRRIGATION 04/04/2025 4:10 PM EDT - 04/11/2025 1:58 PM EDT Hospital Encounter [facility] [address] [place] [address] Mario Crowley DO [place], Laurie, [...] Recorded In the past 12 months has sendwithus, gas, oil, or water [employer] threatened to shut off services in your [...] or training? Not on file Preferred Language Chilean 04/07/2025 Sex and Gender Information Value Date [...] this topic Medical Devices Implanted Type Area Mainframe Consultant Device Identifier Shelf Expiration Date Model / Serial / Lot Dev Wnd/Cls Contrl Tiss Stratafix Spiral Pls Pds Ct1 0 22cm - [id number] Implanted:Qty: 1 on 04/08/2025 by Sushil Dean Jr., MD at [facility] Implant Right: Leg [employer] 12/07/2025 [id number] / / [id number] Procedures Procedure Name Priority [...] resultswithin the time period is included. Pathologist [facility] WBC 7.87 3.40 - 10.80 10*3/mm3 04/11/2025 4:02 AM EDT [facility] RBC 4.70 4.14 - 5.80 10*6/mm3 04/11/2025 4:02 AM EDT [facility] Hemoglobin 12.8(L) 13.0 - 17.7 g/dL 04/11/2025 4:02 AM EDT [facility] Hematocrit 40.5 37.5 - 51.0 % 04/11/2025 4:02 AM EDT [facility] MCV 86.2 79.0 - 97.0 fL 04/11/2025 4:02 AM EDT [facility] MCH 27.2 26.6 - 33.0 pg 04/11/2025 4:02 AM EDT [facility] MCHC 31.6 31.5 - 35.7 g/dL 04/11/2025 4:02 AM EDT [facility] RDW 12.9 12.3 - 15.4 % 04/11/2025 4:02 AM EDT [facility] RDW-SD 40.5 37.0 - 54.0 fl 04/11/2025 4:02 AM EDT [facility] MPV 9.2 6.0 - 12.0 fL 04/11/2025 4:02 AM EDT [facility] Platelets 267 140 - 450 10*3/mm3 04/11/2025 4:02 AM EDT [facility] Neutrophil % 59.5 42.7 - 76.0 % 04/11/2025 4:02 AM EDT [facility] Lymphocyte % 26.3 19.6 - 45.3 % 04/11/2025 4:02 AM EDT [facility] Monocyte % 9.3 5.0 - 12.0 % 04/11/2025 4:02 AM [facility] Eosinophil % 4.1 0.3 - 6.2 % 04/11/2025 4:02 AM EDT [facility] Basophil % 0.4 0.0 - 1.5 % 04/11[facility]2025 [facility] Immature Grans % 0.4 [...] BLOOD ORDERABLES Fi nal Result [facility]
[address] [place] [address], * (ABNORMAL) Comprehensive Metabolic Panel (04/11/2025 3:40 AM EDT) Only the most recent of2 resultswithin the time period is included. Glucose 108(H) 65 - 99 mg/dL 04/11/2025 4:19 AM EDT [facility] BUN 12.5 6.0 - 20.0 mg/dL 04/11/2025 4:19 AM EDT [facility] Creatinine 0.68(L) 0.76 - 1.27 mg/dL 04/11/2025 4:19 AM EDT [facility] Sodium 140 136 - 145 mmol/L 04/11/2025 4:19 AM EDT [facility] Potassium 3.8 3.5 - 5.2 mmol/L 04/11/2025 4:19 AM EDT [facility] Chloride 105 98 - 107 mmol/L 04/11/2025 4:19 AM EDT [facility] CO2 28.2 22.0 - 29.0 mmol/L 04/11/2025 4:19 AM EDT [facility] Calcium 8.2(L) 8.6 - 10.5 mg/dL 04/11/2025 4:19 AM EDT [facility] Total Protein 6.1 6.0 - 8.5 g/dL 04/11/2025 4:19 AM EDT [facility] Albumin 3.1(L) 3.5 - 5.2 g/dL 04/11/2025 4:19 AM EDT [facility] ALT (SGPT) 52(H) 1 - 41 U/L 04/11/2025 4:19 AM EDT [facility] AST (SGOT) 40 1 - 40 U/L 04/11/2025 4:19 AM EDT [facility] Alkaline Phosphatase 99 39 - 117 U/L 04/11/2025 4:19 AM EDT [facility] Total Bilirubin 0.2 0.0 - 1.2 mg/dL 04/11/2025 4:19 AM EDT [facility] Globulin 3.0 gm/dL 04/11/2025 4:19 AM EDT [facility] Comment:Calculated Result A/G Ratio 1.0 g/dL 04/11/2025 4:19 AM EDT [facility] BUN/Creatinine Ratio 18.4 7.0 - 25.0 04/11/2025 4:19 AM EDT [facility] Anion Gap 6.8 5.0 - 15.0 mmol/L 04/11/2025 4:19 AM EDT [facility] eGFR 117.5 >60.0 mL/min/1.7 3 04/11/2025 4:19 AM EDT [facility] Blood Venipuncture [...] race as a factor us Rosario Hill [employer] LAB BLOOD ORDERABLES Final Result [facility]
[address] [id number], * Heparin Anti-Xa (04/10/2025 3:46 AM EDT) Only the most recent of13 resultswithin the time period is included. Heparin Anti-Xa (UFH) 0.35 0.30 - 0.70 IU/ml 04/10/2025 4:23 AM EDT [facility] Blood Venipuncture / Unknown 04/10/2025 3:46 AM EDT 04/10/2025 3:53 AM EDT [facility] LAB BLOOD ORDERABLES Final R esult [facility]
[address] [place] [address], * (ABNORMAL) Basic Metabolic Panel (04/10/2025 3:46 AM EDT) Only the most recent of6 resultswithin the time period is included. [facility] Glucose 125(H) 65 - 99 mg/dL 04/10/2025 4:20 AM EDT [facility] BUN 15.9 6.0 - 20.0 mg/dL 04/10/2025 4:20 AM EDT [facility] Creatinine 0.77 0.76 - 1.27 mg/dL 04/10/2025 4:20 AM EDT [facility] Sodium 137 136 - 145 mmol/L 04/10/2025 4:20 AM EDT [facility] Potassium 3.9 3.5 - 5.2 mmol/L 04/10/2025 4:20 AM EDT [facility] Chloride 102 98 - 107 mmol/L 04/10/2025 4:20 AM EDT [facility] CO2 26.9 22.0 - 29.0 mmol/L 04/10/2025 4:20 AM EDT [facility] Calcium 7.9(L) 8.6 - 10.5 mg/dL 04/10/2025 4:20 AM EDT [facility] BUN/Creatinine Ratio 20.6 7.0 - 25.0 04/10/2025 4:20 AM EDT [facility] Anion Gap 8.1 5.0 - 15.0 mmol/L 04/10/2025 4:20 AM EDT [facility] eGFR 113.2 >60.0 mL/min/1.7 3 04/10/2025 4:20 AM EDT [facility] Blood Venipuncture / Unknown 04/10/2025 3:46 AM EDT 04/10/2025 3:52 AM EDT Narrative [facility] - 04/10/2025 4:20 AM EDT GFR [...] BLOOD ORDERABLES Final Resul t [facility]
[address] [place] [address], * Wound Culture - Swab, Leg, Right (04/08/2025 3:40 PM EDT) Only the most recent of3 resultswithin the time period is included. Wound Culture No growth at 3 days ALIZA 04/11/2025 10:40 AM EDT [facility] Gram Stain Few (2+) WBCs seen 04/11/2025 10:40 AM EDT [facility] Gram Stain No organisms seen 04/11/2025 10:40 AM EDT [facility] Swab Structure of right lower limb / Unknown 04/08/2025 3:40 PM EDT 04/08/2025 8:05 PM EDT Sushil Dean Jr., MD MICROBIOLOGY - GENERAL ORDERABLES Final Result Performing Organization Address City/[facility]/ZIP Co de Phone Number [facility]
[address] [place] [address], [facility]
[address] [place] [address], [place] [phone] * Anaerobic Culture - Swab, Leg, Right [...] GENERAL ORDERABLES Final Result Performing Organization Address [facility] Co de Phone Number [facility]
[address] [place] [address], * Scan Slide (04/08/2025 8:41 AM EDT) RBC Morphology Normal Normal 04/08/2025 11:02 AM EDT [facility] WBC Morphology Normal Normal 04/08/2025 11:02 AM EDT [facility] Platelet Estimate Adequate Normal 04/08/2025 11:02 AM EDT [facility] Clumped Platelets Present None Seen 04/08/2025 11:02 AM EDT [facility] Blood Venipuncture / Unknown 04/08/2025 8:41 AM EDT 04/08/2025 9:10 AM EDT Una Perla PharmD LAB BLOOD ORDERABLES Final R esult Performing Organization Address City/[facility]/ZIP Co de Phone Number [facility]
[address] [place] [address], [place] [phone] * FL C Arm During Surgery (04/07/2025 [...] seen 04/11/2025 10:36 AM EDT [facility] Gram Stain No organisms seen 04/11/2025 10:36 AM EDT [facility] Tissue Structure of right lower limb / Unknown 04/07/2025 9:13 PM EDT 04/08/2025 4:54 AM EDT us Sushil Dean Jr., MD MICROBIOLOGY - GENERAL ORDERABLES Final Result [facility]
[address] [place] [address], [facility]
[address] [place] [address], * BH AN ETT AIRWAY (04/07/2025 8:44 [...] [place] 04/07/2025 9:58 AM EDT Workstation ID: [id number] Narrative 04/07/2025 9:58 AM EDT MRI TIBIA [...] [place] 04/07/2025 9:58 AM EDT Workstation ID: [id number] Sushil Dean Jr., MD IMG MRI ORDERABLES Mary Beth l Result * Potassium (04/06/2025 7:16 PM EDT) Potassium 4.0 3.5 - 5.2 mmol/L 04/06/2025 7:53 PM EDT [facility] Blood Venipuncture / Unknown 04/06/2025 7:16 PM EDT 04/06/2025 7:35 PM EDT Jason Álvarez DO LAB BLOOD ORDERABLES Final Resul t Performing Organization Address City/[facility]/ZIP Co de Phone Number [facility]
[address] [place] [address], * CK (04/05/2025 12:15 PM EDT) Creatine Kinase 140 20 - 200 U/L 04/05/2025 1:31 PM EDT [facility] Blood Venipuncture / Unknown 04/05/2025 12:15 PM EDT 04/05/2025 1:03 PM EDT Carlton Mead MD LAB BLOOD ORDERABLES Final R esult Performing Organization Address City/[facility]/ZIP Co de Phone Number [facility]
[address] [place] [address], * (ABNORMAL) aPTT (04/05/2025 3:54 AM EDT) Only the most recent of2 resultswithin the time period is included. PTT 35.3(L) 60.0 - 90.0 seconds 04/05/2025 4:31 AM EDT [facility] Blood Venipuncture / Unknown 04/05/2025 3:54 AM EDT 04/05/2025 4:15 AM EDT Narrative [facility] - 04/05/2025 4:31 AM EDT PTT = The equivalent PTT values for the therapeutic range of heparin levels at 0.3 to 0.5 U/ml are 60 to 70 seconds. [employer] LAB BLOOD ORDERABLES Final R esult Performing Organization Address City/[facility]/ZIP Co de Phone Number [facility]
[address] [place] [address], * (ABNORMAL) Protime-INR (04/05/2025 12:18 AM EDT) Pathologist [facility] Protime 15.9(H) 12.2 - 15.3 Seconds 04/05/2025 12:53 AM EDT [facility] INR 1.19(H) 0.89 - 1.12 04/05/2025 12:53 AM EDT [facility] Blood Venipuncture / Unknown 04/05/2025 12:18 AM EDT 04/05/2025 12:37 AM EDT [employer] PharmD LAB BLOOD ORDERABLES Final R esult Performing Organization Address City/[facility]/ZIP Co de Phone Number [facility]
[address] [place] [address], * POC Creatinine (04/04/2025 2:49 PM EDT) Pathologist [facility] Creatinine 1.10 0.60 - 1.30 mg/dL 04/07/2025 7:14 PM EDT [facility] Comment:Serial Number: [id number] 7Operator: [id number] Venous Blood 04/04/2025 2:49 PM EDT 04/07/2025 7:14 PM EDT Jason Álvarez DO POINT OF CARE TEST ORDERABLES Fi nal Result Performing Organization Address [facility] Co de Phone Number [facility]
[address] [place] [address], * (ABNORMAL) Sedimentation Rate (04/04/2025 2:47 PM EDT) Sed Rate 51(H) 0 - 15 mm/hr 04/04/2025 3:06 PM EDT [facility] Blood Venipuncture / Unknown 04/04/2025 2:47 PM EDT 04/04/2025 2:52 PM EDT Mario Crowley LAB BLOOD ORDERABLES Fin al Result Performing Organization Address [facility] de Phone Number [facility]
[address] [place] [address], * (ABNORMAL) C-reactive Protein (04/04/2025 2:47 PM EDT) C-Reactive Protein 8.57(H) 0.00 - 0.50 mg/dL 04/04/2025 3:26 PM EDT [facility] Blood Venipuncture / Unknown 04/04/2025 2:47 PM EDT 04/04/2025 2:52 PM EDT Mario Crowley DO LAB BLOOD ORDERABLES Fin al Result Performing Organization Address [facility] Co de Phone Number [facility]
[address] [place] [address], from Last 3 Months Additional Health Concerns [...] Of Support Discussed With: Patient Care Teams Geography Faculty Member Relationship Specialty Start Date End Date Provider, No Known [facility] [place] [address] PCP - General 05/09/23
--- OUTSIDE RECORDS SUMMARY | 2025-05-07 09:13 | XMS_ITS | Encounter Summary ---
Author Organization [facility] Address [address] [place] [address] Care Team Providers Care Sap Bw Bi Developer Name Role Phone Unavailable Primary Care Provider Unavailabl e Encounter Details Date Type Department Care Team (Late st Contact Info) Description 10/03/2022 Lab Requisition [facility] Lab [address] [place] [address] Dalila Cox MD [address] [place], [place] [id number] Encounter for general adult medical examination without [...] Culture Neelima albicans(A) 10/05/2022 11:58 AM EDT [facility] Comment: This result was determined by MALDI tof Mass spectrometry. This assay was developed and its performance characteristics determined by [facility] as appropriate for clinical purposes. [...] Edited Result - Final [facility] [address] [place] [address] documented in this encounter Visit Diagnoses Diagnosis Encounter for general adult medical examination without abnormal findings documented in this encounter
--- OUTSIDE RECORDS SUMMARY | 2025-05-07 09:13 | XMS_ITS | Encounter Summary ---
Author Organization Healthcare Address [address] [place] [address] Care Team Providers Care Bench Patternmaker Metal Name Role Phone Unavailable Primary Care Provider Unavailabl e Encounter Details Date Type Department Care Team (Late st Contact Info) Description 07/20/2022 Lab Requisition [facility] [address] [place] [address] Sushil Dean MD [address] [place] [address] Encounter for general adult medical examination without [...] at day 4 07/27/2022 11:32 AM EST [facility] Bone Specimen from bone / Unknown 07/20/2022 1:36 PM EST 07/20/2022 5:52 PM EST us Sushil Dean MD LAB MICROBIOLOGY - GENERAL O RDERABLES Final Result Performing Organization Address City/[facility] Co de Phone Number HEALTHCARE LAB [address] [place] [address] * Bone Culture and Gram Stain (07/20/2022 1:36 PM EST) Culture No growth at day 4 2022 9:16 AM EST [facility] Gram Stain Result Rare Polymorphonuclear leukocytes 07/24/2022 9:16 AM EST [facility] Gram Stain Result No organisms seen 07/24/2022 9:16 AM EST [facility] Bone Specimen from bone / Unknown 07/20/2022 1:36 PM EST 07/20/2022 5:52 PM EST us Sushil Dean MD LAB MICROBIOLOGY - GENERAL O RDERABLES Final Result Performing Organization Address City/[facility] Co de Phone Number HEALTHCARE LAB [address] [place] [address] documented in this encounter Visit Diagnoses Diagnosis Encounter for general adult medical examination without abnormal findings documented in this encounter
--- OUTSIDE RECORDS SUMMARY | 2025-05-07 09:13 | XMS_ITS | Encounter Summary ---
Author Organization Healthcare Address [address] [place] [address] Care Team Providers Care Software Development Engineer Name Role Phone Unavailable Primary Care Provider Unavailabl e Encounter Details Date Type Department Care Team (Late st Contact Info) Description 10/19/2022 Lab Requisition [facility] [address] [place] [address] Sushil Dean MD [address] [place] [address] Encounter for general adult medical examination without [...] by MALDI tof mass spectrometry using the [employer]igating [employer] database and is for research use only. The organism value for this result has been updated. These results have been appended to the previously preliminary verified report. Bone Specimen from bone / Unknown 10/19/2022 5:17 PM EDT 10/19/2022 9:49 PM EDT Sushil Dean MD LAB MICROBIOLOGY - GENERAL O RDERABLES Final Result Performing Organization Address [facility] de Phone Number HEALTHCARE LAB [address] [place] [phone] * Bone Culture and Gram Stain (10/19/2022 5:17 PM EDT) Culture No growth at day 4 2022 8:14 AM EDT [facility] Gram Stain Result Few Polymorphonuclear leukocytes 10/23/2022 8:14 AM EDT [facility] Gram Stain Result No organisms seen 10/23/2022 8:14 AM EDT [facility] Bone Specimen from bone / Unknown 10/19/2022 5:17 PM EDT 10/19/2022 9:49 PM EDT Sushil Dean MD LAB MICROBIOLOGY - GENERAL O RDERAADDI Final Result Performing Organization Address [facility] Phone Number HEALTHCARE LAB [address] [place] [phone] documented in this encounter Visit Diagnoses Diagnosis Encounter for general adult medical examination without abnormal findings documented in this encounter
--- OUTSIDE RECORDS SUMMARY | 2025-05-07 09:13 | XMS_ITS | Encounter Summary ---
Author Organization Healthcare Address [address] [place] [address] Care Team Providers Care Commercial Housekeeper Name Role Phone Unavailable Primary Care Provider Unavailabl e Encounter Details Date Type Department Care Team (Late st Contact Info) Description 08/12/2022 Lab Requisition [facility] [address] [place] [address] Sushil Dean MD [address] [place] [address] Encounter for general adult medical examination without [...] has been identified using the FDA Approved PlayDataer CA System The organism value for this [...] O ERIC Final Result Performing Organization Address City/[facility] de Phone Number HEALTHCARE LAB [address] [place] [address] * Bone Culture and Gram Stain (08/12/2022 [...] City/[facility] de Phone Number [facility] [address] [place] [address] documented in this encounter Visit Diagnoses Diagnosis Encounter for general adult medical examination without abnormal findings documented in this encounter
--- OUTSIDE RECORDS SUMMARY | 2025-05-07 09:13 | XMS_ITS | Encounter Summary ---
Author Organization Healthcare Address [address] [place] [address] Care Team Providers Care Music Store Manager Name Role Phone Unavailable Primary Care Provider Unavailabl e Encounter Details Date Type Department Care Team (Late st Contact Info) Description 10/01/2022 Lab Requisition [facility] [address] [place] [address] Sushil Dean MD [address] [facility]. [address] [place] [address] Encounter for general adult medical examination without [...] has been identified using the FDA Approved Knetik Mediayper CA System The organism value for this [...] 10/04/2022 2:17 PM EDT Refer to culture [id number] FOR SUSCEPTIBILITIES ON NEELIMA ALBICANS us Sushil Dean MD LAB MICROBIOLOGY - GENERAL O RDERABLES Final Result [facility] [address] [place] [address] documented in this encounter Visit Diagnoses Diagnosis Encounter for general adult medical examination without abnormal findings documented in this encounter
--- OUTSIDE RECORDS SUMMARY | 2025-05-07 09:13 | XMS_ITS | Encounter Summary ---
Author Organization Healthcare Address [address] [place] [address] Care Team Providers Care Drink Mixer Name Role Phone Unavailable Primary Care Provider Unavailabl e Encounter Details Date Type Department Care Team (Late st Contact Info) Description 05/17/2023 Lab Requisition [facility] [address] [place] [address] Sushil Dean MD [address] [facility] [address] [place] [address] Encounter for general adult medical examination without [...] RDERABLES Final Result Performing Organization Address City/[facility] Co de Phone Number [facility] [address] [place] [address] * Bone Culture and Gram Stain (05/17/2023 [...] O RDERABLES Final Result Performing Organization Address [facility] Co de Phone Number [facility] [address] [place] [address] documented in this encounter Visit Diagnoses Diagnosis Encounter for general adult medical examination without abnormal findings documented in this encounter
--- OUTSIDE RECORDS SUMMARY | 2025-05-07 09:13 | XMS_ITS | Encounter Summary ---
Author Organization Healthcare Address [address] [place] [address] Care Team Providers Care Wood Casket Assembler Name Role Phone Unavailable Primary Care Provider Unavailabl e Encounter Details Date Type Department Care Team (Late st Contact Info) Description 05/13/2023 Lab Requisition [facility] [address] [place] [address] Sushil Dean MD [address] [facility]. [address] [place] [address] Encounter for general adult medical examination without [...] Final Result Performing Organization Address [facility] Co de Phone Number [facility] [address] [place] [address] * Anaerobic Culture (05/13/2023 9:17 AM EDT) Culture No growth at day 4 05/20/2023 10:35 AM EST [facility] Bone 05/13/2023 9:17 AM EDT 05/13/2023 1:25 PM EDT us Sushil Dean MD LAB MICROBIOLOGY - GENERAL O RDERABLES Final Result Performing Organization Address [facility] de Phone Number [facility] [address] [place] [address] * Bone Culture and Gram Stain (05/13/2023 [...] Final Result Performing Organization Address [facility] de Phone Number [facility] [address] [place] [address] documented in this encounter Visit Diagnoses Diagnosis Encounter for general adult medical examination without abnormal findings documented in this encounter
--- OUTSIDE RECORDS SUMMARY | 2025-05-07 09:13 | XMS_ITS | Encounter Summary ---
Author Organization [facility] Address [address] [place] [address] Care Team Providers Care On Site Nurse Name Role Phone Provider, No Known Primary [...] 2:25 PM EDT Cherri Grimm RN * [place] Suicide Severity Rating Scale (Screener/Recent Self-Report) Question [...] documented as of this encounter Care Teams On Site Nurse Relationship Specialty Start Date End Date Provider, No Known [facility] [address] PCP - General 05/09/23 documented as of this encounter
--- OUTSIDE RECORDS SUMMARY | 2025-05-07 09:13 | XMS_ITS | Encounter Summary ---
Author Organization Healthcare Address [address] [place] [address] Care Team Providers Care Armature Winder Helper Repair Name Role Phone Unavailable Primary Care Provider Unavailabl e Encounter Details Date Type Department Care Team (Late st Contact Info) Description 07/20/2022 Lab Requisition [facility] [address] [place] [address] Sushil Dean MD [address] [place] [address] Encounter for general adult medical examination without [...]
--- OUTSIDE RECORDS SUMMARY | 2025-05-07 09:14 | XMS_ITS | Clinical Summary ---
Author Organization Healthcare Address [address] [place] [address] Care Team Providers Care Loan Inspector Name Role Phone Unavailable Primary Care [...]
[2025-05-07 09:30] VITALS: BP 114/62; PULSE 70
== END 2025-05-07 23:59 | disposition home or self-care (01) ==
LOC: INF 08:43
PROVIDERS: PCP Nurse Practitioner Family; Visit Provider Internal Medicine Infectious Disease
DX: A49.02 Methicillin resistant Staphylococcus aureus infection, unspecified site (principal); M86.9 Osteomyelitis, unspecified
CPT/HCPCS: 96365; J0878

== ENCOUNTER 2025-05-08 09:14 | Outpatient (CLI) | payer MEDICARE, SELFPAY ==
--- OUTSIDE RECORDS SUMMARY | 2023-12-12 05:00 | XMS_ITS ---
Author Organization Ayaka Address 1210 [facility] 36 [facility] 2C [place] [phone] Care Team Providers Care Operations Developer Name Role Phone Zeeshan Salazar Primary Care Provider Macario Burkett [phone] REASON FOR VISIT 6 Month Check Up Encounters Encounter Location Date Provider Diagnosis [place] 1210 [facility] [address] [place] [phone] 12/12/2023 Macario Burkett Plan Of Treatment No Information Progress Notes * Won MEDRANO ZeeshanDOB: [birth year] (44 yo M)Acc No.[id number]:12/12/2023 Progress Notes Patient: Won SPANN Provider: Colleen Burkett M.D. :1980 A ge:43 Y S ex:Male Date:12/12/2023 Address:[address] [place] [address] [id number] Pcp:Zeeshan Salazar Subjective: * Chief Complaints: * 1 . 6 Month Check Up. * Medical History: Objective: * Vitals: Assessment: Plan: * Treatment: * Images: Billing Information: * Visit Code: * Procedure Codes: * Electronic signature of Micaela Burkett MD on 05/08/2025 at 09:27 AM EDT Sign off status: Pending * Provider: Colleen Burkett M.D. Date: 12/12/2023 Generated for Nany jorgensen/Elaine/Pro on: 1 09:27 AM EDT
--- OUTSIDE RECORDS SUMMARY | 2025-04-04 16:10 | XMS_ITS | Encounter Summary ---
Author Organization [facility] Address [address] [place] [address] Care Team Providers Care Assistant Teaching Professor Name Role Phone Provider, No Known Primary Care Provider Unavail able Reason for Visit * Reason Comments Leg Swelling * Auth/Cert Specialty Diagnoses / Procedures Referred By Contlevy t Referred To Contact Diagnoses Right BKA infection Referral ID Status Reason Start Date Expiration Date Visits Re quested Visits Authorized [id number] 1 1 Encounter Details Date Type Department Care Team (Late st Contact Info) Description 04/04/2025 4:10 PM EDT - 04/11/2025 1:58 PM EDT Hospital Encounter [address] [place] [address] Mario Crowley, [address] [place] [address] Leonora Shepherd MD [address] [address] Jason Álvarez DO [address] [address] Jadyn Richardson DO [address] [address] Cellulitis of right lower extremity (Primary Dx); Below-knee amputation of right lower extremity, initial encounter; Right BKA infection Discharge Disposition: Home or Self Care Social History Tobacco Use Types Packs/Day Years Used Date Smoking Tobacco: Never Smokeless Tobacco: Never Tobacco Cessation:Counseling Given: Not Answered Alcohol Use Standard Drinks/Week Comments Not Currently 0 (1 standard drink = 0.6 oz pur e alcohol) [facility] Utilities Answer Date Recorded In the past 12 months has th e [employer], gas, oil, or water company threatened to [...] or training? Not on file Preferred Language Citizen Of [place] 04/07/2025 Sex and Gender Information Value Date [...] 2:25 PM EDT Cherri Grimm RN * [place] Suicide Severity Rating Scale (Screener/Recent Self-Report) Question [...] from the original note were not included. [facility] Medicine Services DISCHARGE SUMMARY Patient Name: [...] Date/Time Wound Culture - Swab, Leg, Right [[id number]] (Abnormal) (Susceptibility) Collected: 04/07/252106 Lab Status: Final [...] Units Date/Time FL C Arm During Surgery [[id number]] Resulted: 04/07/252137 Updated: 04/07/252137 Narrative: This procedure was auto-finalized with no dictation required. MRI Tibia Fibula Right With & Without Contrast [[id number]] Collected: 04/07/25 0938 Updated: 04/07/25 1001 Narrative: [...] Buenrostro 04/07/2025 9:58 AM EDT Workstation ID: [id number] MRI Tibia Fibula Right With & Without Contrast [[id number]] Collected: 04/04/252256 Updated: 04/04/252302 Narrative: MRI TIBIA [...] MD 04/04/2025 11:00 PM EDT Workstation ID: [id number] Pending Labs Order Current Status Fungus Culture [...] FLOMAX 1 capsule, Nightly Stop These Medications [facility] capsule doxycycline 100 MG tablet [...] Male) Date of 1980 Social Security Number [id number] [place] [address] Hinduism Unknown Marital Status Unknown Admission Date 04/04/2025 Admission Type Emergency Admitting Provider Jadyn Richardson DO Attending Provider Jadyn Richardson DO Department, Room/Bed [address], S565/1 Discharge Date Discharge Disposition Discharge [...] Group [place] [id number] Payor Plan Address Payor Plan Phone Number Payor Plan Fax Number Effective Dates [employer] [address] [address] 08/10/2023 - None Entered [place] [address] Subscriber Name Subscriber Date Member ID WON DENNIS 1980 [id number] Emergency Contacts Delivery Professional (Rel.) Home Phone Work Phone Mobile Phone Avril Dennis (Spouse) -- -- [phone] LewRobert (Relative) -- -- [phone] [place] [facility] [address] Patient: ROOM: [facility] Won Dennis [address] [facility] [address] : 1980 SSN: [id number] Sex: M PCP: Provider, No Known Emergency Contact Information Name Relation Home Work Mobile Avril Dennis Spouse [phone] Other Contacts Name Relation Home Work Mobile Robert Hackett Relative [phone] INSURANCE PAYOR [employer]AN [employer] # SUBSCRIBER ID Primary: Secondary: MEDICARE [employer]ICA[place] [id number] Admitting Diagnosis: 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] Order Date: Apr 09, 2025 Case Management Surveillance Dual Rate Officer Consult (Order ID: [id number]) Diagnosis: Priority: Routine Expected Date: Expiration Date: [...] INFECTIOUS DISEASE Progress Note Won Dennis 1980 [id number] Date of Consult: 04/10/2025 Admission Date: 04/04/2025 [...] which prompted him to seek treatment at [facility]. He is known to Dr. [...] Jr., MD, 20 mg at 04/09/25906 heparin 06532 units/250 mL (100 units/mL) in 0.45 % [...] infusion 40 mL, 40 mL, Intravenous, PRAlyce Perason Mark J, MD tamsulosin (FLOMAX) 24 hr [...] Units Date/Time FL C Arm During Surgery [[id number]] Resulted: 04/07/252137 Updated: 04/07/252137 Narrative: This procedure was auto-finalized with no dictation required. MRI Tibia Fibula Right With & Without Contrast [[id number]] Collected: 04/07/25 0938 Updated: 04/07/25 1001 Narrative: [...] Chitra 04/07/2025 9:58 AM EDT Workstation ID: [id number] Impression: Recurrent Right BKA stump abscess/cellulitis- this [...] discussed his disposition with the pharmacist at [facility] today. I will sign off Outpatient orders: 1. Outpatient intravenous antibiotic therapy: Daptomycin 800 mg IV daily to be supplied by [facility] 2. Home health to perform weekly [...] Time: 04/10/251323 Signed Expand All Collapse All [facility] Medicine Services PROGRESS NOTE Patient Name: [...] Date/Time Wound Culture - Swab, Leg, Right [[id number]] (Abnormal) (Susceptibility) Collected: 04/07/252106 Lab Status: Final [...] Row Name 04/06/25 1143 Sit-Stand Transfer Sit-Stand [place] (Transfers) modified independence -LM Comment, (Sit-Stand Transfer) Pt stood from recliner. Not holding onto walker, pt able to pull his pants up while balancing on his one leg. -LM Row Name 04/06/25 1143 Gait/Stairs (Locomotion) [place] Level (Gait) modified independence -LM Distance in [...] Nurse Physical Therapy Education Title: PT OT SHAPER AND PRESSER Therapies (Done) Topic: Physical Therapy (Done) Point: [...] Description Service Date Service Provider Modifiers Qty [id number] PT EVAL LOW COMPLEXITY 3 04/06/2025 Susan [...] mg Daily 04/05/2025 -- Route: Oral heparin 88794 units/250 mL (100 units/mL) in 0.45 % [...] 22 [facility] [address], [address] [facility], [address] Please schedule at [phone] VONDA Garcia 04/11/25 08:32 EDT Cosigned by Sushil Dean Jr., MD at 04/19/2025 10:33 AM EDT Associated attestation - Sushil Dean Jr., MD - 04/19/2025 10:33 AM EDT I have reviewed this documentation and agree. * Rosario Hill APRN - 04/10/2025 1:24 PM EDT Images from the original note were not included. [facility] Medicine Services PROGRESS NOTE Patient Name: [...] Date/Time Wound Culture - Swab, Leg, Right [[id number]] (Abnormal) (Susceptibility) Collected: 04/07/252106 Lab Status: Final [...] mg Daily 04/05/2025 -- Route: Oral heparin 86432 units/250 mL (100 units/mL) in 0.45 % [...] 22 [facility] [address], [address] [facility], [address] Please schedule at [phone] VONDA Garcia 04/10/25 09:01 EDT Cosigned by Sushil Dean Jr., MD at 04/19/2025 10:33 AM EDT Associated attestation - Sushil Dean Jr., MD - 04/19/2025 10:33 AM EDT I have reviewed this documentation and agree. * Carlton Mead MD - 04/10/2025 7:38 AM EDT Images from the original note were not included. INFECTIOUS DISEASE Progress Note Won Dennis 1980 [id number] Date of Consult: 04/10/2025 Admission Date: 04/04/2025 [...] which prompted him to seek treatment at [facility]. He is known to Dr. [...] IRRIGATION; Surgeon: Sushil Dean Jr., MD; Location: [facility] OR;Service: Orthopedics; Laterality: Right; History reviewed. No [...] Jr., MD, 20 mg at 04/09/25906 heparin 24459 units/250 mL (100 units/mL) in 0.45 % [...] vancomycin 2750 mg/500 mL 0.9% NS IV[facility] ([facility]) Ordering Provider: Mario Crowley, DO 20 [...] Units Date/Time FL C Arm During Surgery [[id number]] Resulted: 04/07/252137 Updated: 04/07/252137 Narrative: This procedure was auto-finalized with no dictation required. MRI Tibia Fibula Right With & Without Contrast [[id number]] Collected: 04/07/25 0938 Updated: 04/07/25 1001 Narrative: [...] Buenrostro 04/07/2025 9:58 AM EDT Workstation ID: [id number] Impression: Recurrent Right BKA stump abscess/cellulitis- this [...] discussed his disposition with the pharmacist at [facility] today. I will sign off Outpatient orders: 1. Outpatient intravenous antibiotic therapy: Daptomycin 800 mg IV daily to be supplied by [facility] 2. Home health to perform weekly [...] MD 04/10/2025 07:38 EDT * Yaya Hamiltonn, [facility] - 04/10/2025 7:17 AM EDT [...] from the original note were not included. [facility] Medicine Services PROGRESS NOTE Patient Name: [...] Date/Time Wound Culture - Swab, Leg, Right [[id number]] (Abnormal) Collected: 04/07/252106 Lab Status: Preliminary result [...] Jason DO Preeti 04/09/25 * Larisa Hamilton [facility] - 04/09/2025 11:36 AM EDT [...] mg Daily 04/05/2025 -- Route: Oral heparin 71447 units/250 mL (100 units/mL) in 0.45 % [...] radiographs [facility] [address], [address] [facility], [address] Please schedule at [phone] VONDA Garcia 04/09/25 09:18 EDT Cosigned by Sushil Dean Jr., MD at 04/19/2025 10:33 AM EDT Associated attestation - Sushil Dean Jr., MD - 04/19/2025 10:33 AM EDT I have reviewed this documentation and agree. * Carlton Mead MD - 04/09/2025 8:25 AM EDT Images from the original note were not included. INFECTIOUS DISEASE Progress Note Won Dennis 1980 [id number] Date of Consult: 04/09/2025 Admission Date: 04/04/2025 [...] which prompted him to seek treatment at [facility]. He is known to Dr. [...] IRRIGATION; Surgeon: Sushil Dean Jr., MD; Location: [facility] OR; Service: Orthopedics; Laterality: Right; PLACEMENT OF WOUND VAC Right 04/07/2025 Procedure: WOUND VACUUM ASSISTED CLOSURE; Surgeon: Sushil Dean Jr., MD; Location: [facility] OR; Service: Orthopedics; Laterality: Right; History [...] MD, 20 mg at 04/08/25 0800 heparin 12081 units/250 mL (100 units/mL) in 0.45 % [...] Units Date/Time FL C Arm During Surgery [[id number]] Resulted: 04/07/252137 Updated: 04/07/252137 Narrative: This procedure was auto-finalized with no dictation required. MRI Tibia Fibula Right With & Without Contrast [[id number]] Collected: 04/07/2538 Updated: 04/07/25 1001 Narrative: MRI [...] Buenrostro 04/07/2025 9:58 AM EDT Workstation ID: [id number] Impression: Recurrent Right BKA stump abscess/cellulitis- this [...] from the original note were not included. [facility] Medicine Services PROGRESS NOTE Patient Name: [...] Buenrostro 04/07/2025 9:58 AM EDT Workstation ID: [id number] I have personally reviewed the therapy plans: [...] Jason Álvarez DO 04/08/25 * Larisa Hamilton [facility] - 04/08/2025 11:48 AM EDT [...] mg Daily 04/05/2025 -- Route: Oral heparin 62381 units/250 mL (100 units/mL) in 0.45 % [...] INFECTIOUS DISEASE Progress Note Won Dennis 1980 [id number] Date of Consult: 04/08/2025 Admission Date: 04/04/2025 [...] which prompted him to seek treatment at [facility]. He is known to Dr. [...] IRRIGATION; Surgeon: Sushil Dean Jr., MD; Location: [facility] OR; Service: Orthopedics; Laterality: Right; PLACEMENT OF WOUND VAC Right 04/07/2025 Procedure: WOUND VACUUM ASSISTED CLOSURE; Surgeon: Sushil Dean Jr., MD; Location: [facility] OR; Service: Orthopedics; Laterality: Right; History [...] Jr., MD, 20 mg at 04/07/25950 heparin 79326 units/250 mL (100 units/mL) in 0.45 % [...] 40 mL, 40 mL, Intravenous, PRN, Sushil eDan Jr., MD tamsulosin (FLOMAX) 24 hr capsule [...] Units Date/Time FL C Arm During Surgery [[id number]] Resulted: 04/07/252137 Updated: 04/07/252137 Narrative: This procedure was auto-finalized with no dictation required. MRI Tibia Fibula Right With & Without Contrast [[id number]] Collected: 04/07/2538 Updated: 04/07/25 1001 Narrative: MRI [...] Buenrostro 04/07/2025 9:58 AM EDT Workstation ID: [id number] Impression: 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 (Treated by ID in [place] Dr. Harris). Dr. Torres treated him [...] from the original note were not included. [facility] Medicine Services PROGRESS NOTE Patient Name: [...] Buenrostro 04/07/2025 9:58 AM EDT Workstation ID: [id number] I have personally reviewed the therapy plans: [...] Jason Álvarez DO 04/07/25 * Larisa Hamilton [facility] - 04/07/2025 11:56 AM EDT [...] INFECTIOUS DISEASE Progress Note Won Dennis 1980 [id number] Date of Consult: 04/07/2025 Admission Date: 04/04/2025 [...] which prompted him to seek treatment at [facility]. He is known to Dr. [...] Application, 1 Application, Topical, Q12H, Ayha Valentin, INTERVENTIONAL PHYSICIAN, 1 Application at 04/06/252101 DAPTOmycin (CUBICIN) 800 [...] Shepherd MD, 20 mg at 04/06/25899 heparin 88077 units/250 mL (100 units/mL) in 0.45 % NaCl infusion, 18 Units/kg/hr, Intravenous, Titrated, Cherri Beatty, [facility], Last Rate: 24.1 mL/hr at [...] With & Without Contrast - In process [[id number]] Resulted: 04/07/25828 Updated: 04/07/25828 This result has not been signed. Information might be incomplete. 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 (Treated by ID in [place] Dr. Harris). Dr. Torres treated him [...] mg Daily 04/05/2025 -- Route: Oral heparin 37170 units/250 mL (100 units/mL) in 0.45 % [...] MD 04/07/25 06:07 EDT * Cherri Beatty [facility] - 04/06/2025 1:47 PM EDT [...] from the original note were not included. [facility] Medicine Services PROGRESS NOTE Patient Name: [...] MD 04/04/2025 11:00 PM EDT Workstation ID: [id number] I have personally reviewed the therapy plans: [...] mg Daily 04/05/2025 -- Route: Oral heparin 62034 units/250 mL (100 units/mL) in 0.45 % [...] INFECTIOUS DISEASE follow up. Won Dennis 1980 [id number] Date of Consult: 04/06/2025 Admission Date: 04/04/2025 [...] which prompted him to seek treatment at [facility]. He is known to Dr. [...] Application, 1 Application, Topical, Q12H, Ayah Valentin, INTERVENTIONAL PHYSICIAN, 1 Application at 04/06/25 0859 DAPTOmycin (CUBICIN) [...] MD, 20 mg at 04/06/25 0900 heparin 54858 units/250 mL (100 units/mL) in 0.45 % NaCl infusion, 18 Units/kg/hr, Intravenous, Titrated, Cherri Beatty [facility], Last Rate: 24.1 mL/hr at [...] Tibia Fibula Right With & Without Contrast [[id number]] Collected: 04/04/252256 Updated: 04/04/252302 Narrative: MRI TIBIA [...] represent a small area of phlegmonous change ([id number] image 10) measuring approximately 1.6 cm which [...] MD 04/04/2025 11:00 PM EDT Workstation ID: [id number] Impression: 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 (Treated by ID in [place] Dr. Harris). Dr. Torres treated him [...] MD 04/06/2025 16:00 EDT * Cherri Beatty, [facility] - 04/05/2025 3:01 PM EDT [...] 0500 0.30 11 -- -- 11 1200 LADEN LEIGH 04/05 1215 0.17 11 1999 +3 14 2100 ALDEN Beatty RPH 04/05/2025 14:55 EDT * Jason Álvarez DO - 04/05/2025 12:43 PM EDT Images from the original note were not included. [facility] Services PROGRESS NOTE Patient Name: [...] MD 04/04/2025 11:00 PM EDT Workstation ID: [id number] I have personally reviewed the therapy plans: [...] from the original note were not included. [facility] Medicine Services HISTORY AND PHYSICAL Patient [...] MD 04/04/2025 11:00 PM EDT Workstation ID: [id number] Assessment & Plan Assessment & Plan Won [...] 4FR PICC placed by Rhoda Bonner RN [facility], tip verified by 3CG see LDA. * Sushil Dean Jr., MD - 04/05/2025 8:07 AM EDTAssociated Order(s): IP CONSULT TO ORTHOPEDIC SURGERY [facility], [facility] [address] [place] [address] Orthopedic Consult Patient: Won Dennis Date of Admission: 04/04/2025 4:10 PM Date of : 1980 Attending Physician: Jason Álvarez DO Consulting Physician: Sushil Dean Jr, MD Chief Complaint: 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 male admitted to [facility] with 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]. [...] was evaluated in the emergency department in [place], was discharged with instructions for follow-up. He [...] tablet by mouth Daily. 04/03/2025 Morning Lactobacillus-Inulin ([facility] SureDone) capsule Take 200 mg by mouth Daily. [...] MD 04/04/2025 11:00 PM EDT Workstation ID: [id number] Assessment: Right BKA infection 44-year-old male with [...] DISEASE CONSULT/INITIAL HOSPITAL VISIT Won Dennis 1980 [id number] Date of Consult: 04/05/2025 Admission Date: 04/04/2025 [...] which prompted him to seek treatment at [facility]. He is known to Dr. [...] Leonora Shepherd MD, 40 mg at 04/04/25 4209 sennosides-docusate (PERICOLACE) 8.6-50 MG per tablet 2 [...] MD, 20 mg at 04/05/25 0916 heparin 03862 units/250 mL (100 units/mL) in 0.45 % [...] Heparin, , Not Applicable, Continuous PRLili, Una Pelra, PharmD Pharmacy to dose vancomycin, , Not [...] Tibia Fibula Right With & Without Contrast [[id number]] Collected: 04/04/252256 Updated: 04/04/252302 Narrative: MRI TIBIA [...] represent a small area of phlegmonous change ([id number] image 10) measuring approximately 1.6 cm which [...] MD 04/04/2025 11:00 PM EDT Workstation ID: [id number] Impression: 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 (Treated by ID in [place] Dr. Harris). Dr. Torres treated him [...] Flowsheet Documentation Taken 04/09/2025 0000 by Bob Rosebnerg RN Safety Promotion/Fall Prevention: assistive device/personal items [...] infection POSTOP DIAGNOSIS: Same. PROCEDURE: Right Right 22059: Secondary closure below-knee amputation SURGEON: Sushil Dean MD OPERATIVE TEAM: Sales And Marketing Director: Susi Grullon RN Scrub Person: Mary Paredes Scrub Person Extra: Hortencia Toribio Other: Katt Gotti RN; Charis Neville RN ANESTHETIST: Anesthesiologist: Ulises Hoffman MD INTERSTATE BUS DRIVER: Stan Casillas CRNA Student Nurse General Freight Agent: Karol Albert SRNA ANESTHESIA: Choice ESTIMATED BLOOD [...] CULTURE (Canceled) Sushil Dean Jr., MD 04/08/25 5977 Description: RIGHT LEG DEEP WOUND FOR CULTURE [...] [facility] [address] [place] [address] OPERATIVE REPORT PATIENT NAME: Won Dennis DATE OF : 1980 PREOP DIAGNOSIS: Right Right below knee amputation stump infection POSTOP DIAGNOSIS: Same. PROCEDURE: Right Right 75304: Incision and drainage of surgical site infection 32660: Debridement of skin, subcutaneous tissue, muscle 57921: Wound vacuum-assisted closure SURGEON: Sushil Dean MD OPERATIVE TEAM: Sales And Marketing Director: Anum Sanchez RN Scrub Person: Hortencia Toribio; Gerald Ivey MANAGEMENT ACCOUNTANT: Anesthesiologist: Luci Alonso DO ANESTHESIA: General ESTIMATED [...] ago swellling of the area. seen at [facility] yesterday for CT and US, [...] this chart in the absence of a system archive analyst. No orders to display RADIOLOGY: [x] Radiologist's [...] 04/11/2025 1:30 PM EDT Continued Stay Note Winn Patient Name: Won Dennis Today's Date: 04/11/2025 Admit Date: 04/04/2025 Plan: Home with outpatient infusion. Discharge Plan Row Name 04/11/25 1155 Plan Plan Home with outpatient infusion. Final Discharge Disposition Code 01 - home or self-care Final Note Patient discharging today. He is discharging home with outpatient infusion at [facility]. He has an appointment with [facility] at 8:00 am tomorrow. They will do PICC line dressing changes. DEBRA has spoke with Dena at [facility] today multiple times to get setup [...] with KELLEE and given themhis Medicare number [id number], she sent it to Admission. DEBRA spoke with Kerri, with [facility], and explained that he had Medicare A and B. However, it will not cover home infusion. It will be $64.00 a day out of packet. Patients can go to the Infusion center at [facility], and it will cover the cost as an outpatient. He will need to go there every day for infusion. They will be able to do the patients' PICC line dressing changes and lab work. CM called Dena [facility] Outpatient infusion center they can accept patient and start him. He is known for their facility. The Facility will need to run it through his insurance first. CM faxed the orders over to [facility] at [phone]. CM will follow up with them tomorrow at [facility] to make sure they received [...] Continued Stay Note Nilda Patient Name: Won eDnnis Today's Date: 04/09/2025 Admit Date: 04/04/2025 Plan: Home Discharge Plan Row Name 04/09/25 1311 Plan Plan Home Patient/Family in Agreement with Plan yes Plan Comments CM spoke with patient at bedside today. [facility] Patient getting PICC line [...] note were not included. Discharge Planning Assessment Winn Patient Name: Won Dennis Today's Date: 04/07/2025 [...] with family Patient/Family Anticipated Services at Transition telephonic case managerhealth center manager Anticipated family or friend will provide Discharge Needs Assessment Equipment Currently Used at Home glucometer;shower chair;pulse ox;bp cuff;prosthesis;crutches Equipment Needed After Discharge none Discharge Plan Row Name 04/07/25 1144 Plan Plan Home Patient/Family in Agreement with Plan yes Plan Comments CM spoke with patient at bedside today. Patient lives with and his 5 kids in [facility]. 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 He has walker, cane, shower chair, and crutches. He requested a wheelchair for home. CM will order wheelchair through [employer]. He is not current with home health services. PCP is Dr. Jordan. Insurance is [facility] Medicaid [place]. Patient discharge plan is home with priavte transport. CM will follow for any discharge needs. Final Discharge Disposition Code 01 - home or self-care Continued Care and Services - Admitted Since 04/04/2025 No active coordination exists. Demographic Summary Row Name 04/07/25 1143 General Information Arrived From hospital Preferred Language Citizen Of [place] Functional Status Row Name 04/07/25 1143 Functional [...] 3:4 0 PM EDT Right BKA infection FL SEC ABDOMINAL WALL SUTURE EVISCERATION/DEHSN 04/08/2025 3:20 [...] AM EDT) [facility] WBC 7.87 3.40 - 10.80 10*3/mm3 04/11/2025 4:02 AM EDT [facility] RBC 4.70 4.14 - 5.80 10*6/mm3 04/11/2025 4:02 AM EDT [facility] Hemoglobin 12.8(L) 13.0 - 17.7 g/dL 04/11/2025 4:02 AM EDT [facility] Hematocrit 40.5 37.5 - 51.0 % 04/11/2025 4:02 AM EDT [facility] MCV 86.2 79.0 - 97.0 fL 04/11/2025 4:02 AM EDT [facility] MCH 27.2 26.6 - 33.0 pg 04/11/2025 4:02 AM EDT [facility] MCHC 31.6 31.5 - 35.7 g/dL 04/11/2025 4:02 AM EDT [facility] RDW 12.9 12.3 - 15.4 % 04/11/2025 4:02 AM EDT [facility] RDW-SD 40.5 37.0 - 54.0 fl 04/11/2025 4:02 AM EDT [facility] MPV 9.2 6.0 - 12.0 fL 04/11/2025 4:02 AM EDT [facility] [facility] Platelets 267 140 - 450 10*3/mm3 04/11/2025 4:02 AM [facility] Neutrophil % 59.5 42.7 - 76.0 % 04/11/2025 4:02 AM [facility] Lymphocyte % 26.3 19.6 - 45.3 % 04/11/2025 4:02 AM [facility] Monocyte % 9.3 5.0 - 12.0 % 04/11/2025 4:02 AM [facility] Eosinophil % 4.1 0.3 - 6.2 % 04/11/2025 4:02 AM [facility] Basophil % 0.4 0.0 - 1.5 % 04/11/2025 4:02 AM [facility] Immature Grans % 0.4 0.0 - 0.5 % 04/11/2025 4:02 AM [facility] Neutrophils, Absolute 4.69 1.70 - 7.00 10*3/mm3 04/11/2025 4:02 AM [facility] Lymphocytes, Absolute 2.07 0.70 - 3.10 10*3/mm3 04/11/2025 4:02 AM [facility] Monocytes, Absolute 0.73 0.10 - 0.90 10*3/mm3 04/11/2025 4:02 AM [facility] Eosinophils, Absolute 0.32 0.00 - 0.40 10*3/mm3 04/11/2025 4:02 AM [facility] Basophils, Absolute 0.03 0.00 - 0.20 10*3/mm3 04/11/2025 4:02 AM [facility] Immature Grans, Absolute 0.03 0.00 - 0.05 10*3/mm3 04/11/2025 4:02 AM [facility] nRBC 0.0 0.0 - 0.2 /100 WBC 04/11/2025 4:02 AM [facility] Blood Venipuncture / Unknown 04/11/2025 3:40 AM EDT 04/11/2025 3:59 AM EDT us Sushil Dean Jr., MD LAB BLOOD ORDERABLES Fi nal Result [facility]
[address] [place] [address], * (ABNORMAL) Comprehensive Metabolic Panel (04/11/2025 3:40 AM EDT) Glucose 108(H) 65 - 99 mg/dL 04/11/2025 4:19 AM EDT [facility] BUN 12.5 6.0 - 20.0 mg/dL 04/11/2025 4:19 AM EDT [facility] Creatinine 0.68(L) 0.76 - 1.27 mg/dL 04/11/2025 4:19 AM EDT [facility] Sodium 140 136 - 145 mmol/L 04/11/2025 4:19 AM EDT [facility] Potassium 3.8 3.5 - 5.2 mmol/L 04/11/2025 4:19 AM EDT [facility] Chloride 105 98 - 107 mmol/L 04/11/2025 4:19 AM EDT [facility] CO2 28.2 22.0 - 29.0 mmol/L 04/11/2025 4:19 AM EDT [facility] Calcium 8.2(L) 8.6 - 10.5 mg/dL 04/11/2025 4:19 AM EDT [facility] Total Protein 6.1 6.0 - 8.5 g/dL 04/11/2025 4:19 AM EDT [facility] Albumin 3.1(L) 3.5 - 5.2 g/dL 04/11/2025 4:19 AM EDT [facility] ALT (SGPT) 52(H) 1 - 41 U/L 04/11/2025 4:19 AM EDT [facility] AST (SGOT) 40 1 - 40 U/L 04/11/2025 4:19 AM EDT [facility] Alkaline Phosphatase 99 39 - 117 U/L 04/11/2025 4:19 AM EDT [facility] Total Bilirubin 0.2 0.0 - 1.2 mg/dL 04/11/2025 4:19 AM EDT [facility] Globulin 3.0 gm/dL 04/11/2025 4:19 AM EDT [facility] Comment:Calculated Result A/G Ratio 1.0 g/dL 04/11/2025 4:19 AM EDT [facility] BUN/Creatinine Ratio 18.4 7.0 - 25.0 04/11/2025 4:19 AM EDT [facility] Anion Gap 6.8 5.0 - 15.0 mmol/L 04/11/2025 4:19 AM EDT [facility] eGFR 117.5 >60.0 mL/min/1.7 3 04/11/2025 4:19 AM EDT [facility] Blood Venipuncture / [...] Hill APRN LAB BLOOD ORDERABLES Final Result [facility]
[address] [place] [address], * (ABNORMAL) CBC Auto Differential (04/10/2025 3:46 AM EDT) [facility] WBC 9.60 3.40 - 10.80 10*3/mm3 04/10/2025 3:56 AM EDT [facility] RBC 4.67 4.14 - 5.80 10*6/mm3 04/10/2025 3:56 [facility] Hemoglobin 12.9(L) 13.0 - 17.7 g/dL 04/10/2025 3:56 AM EDT [facility] Hematocrit 40.1 37.5 - 51.0 % 04/10/2025 3:56 AM [facility] MCV 85.9 79.0 - 97.0 fL 04/10/2025 3:56 AM [facility] MCH 27.6 26.6 - 33.0 pg 04/10/2025 3:56 AM [facility] MCHC 32.2 31.5 - 35.7 g/dL 04/10/2025 3:56 AM [facility] RDW 12.9 12.3 - 15.4 % 04/10/2025 3:56 AM [facility] RDW-SD 40.5 37.0 - 54.0 fl 04/10/2025 3:56 AM [facility] MPV 9.5 6.0 - 12.0 fL 04/10/2025 3:56 AM [facility] Platelets 227 140 - 450 10*3/mm3 04/10/2025 3:56 AM EDT [facility] Neutrophil % 59.1 42.7 - 76.0 % 04/10/2025 3:56 AM [facility] Lymphocyte % 29.0 19.6 - 45.3 % 04/10/2025 3:56 AM [facility] Monocyte % 8.1 5.0 - 12.0 % 04/10/2025 3:56 AM [facility] Eosinophil % 3.2 0.3 - 6.2 % 04/10/2025 3:56 AM EDT [facility] Basophil % 0.4 0.0 - 1.5 % 04/10/2025 3:56 AM EDT [facility] Immature Grans % 0.2 0.0 - 0.5 % 04/10/2025 3:56 AM EDT [facility] Neutrophils, Absolute 5.67 1.70 - 7.00 10*3/mm3 04/10/2025 3:56 AM EDT [facility] Lymphocytes, Absolute 2.78 0.70 - 3.10 10*3/mm3 04/10/2025 3:56 AM EDT [facility] Monocytes, Absolute 0.78 0.10 - 0.90 10*3/mm3 04/10/2025 3:56 AM EDT [facility] Eosinophils, Absolute 0.31 0.00 - 0.40 10*3/mm3 04/10/2025 3:56 AM EDT [facility] Basophils, Absolute 0.04 0.00 - 0.20 10*3/mm3 04/10/2025 3:56 AM EDT [facility] Immature Grans, Absolute 0.02 0.00 - 0.05 10*3/mm3 04/10/2025 3:56 AM EDT [facility] nRBC 0.0 0.0 - 0.2 /100 WBC 04/10/2025 3:56 AM EDT [facility] Blood Venipuncture / Unknown 04/10/2025 3:46 AM EDT 04/10/2025 3:53 AM EDT Jason Álvarez DO LAB BLOOD ORDERABLES Final Resul t [facility]
[address] [place] [address], * (ABNORMAL) Basic Metabolic Panel (04/10/2025 3:46 AM EDT) [facility] Glucose 125(H) 65 - 99 mg/dL 04/10/2025 4:20 AM EDT [facility] BUN 15.9 6.0 - 20.0 mg/dL 04/10/2025 4:20 AM T [facility] Creatinine 0.77 0.76 - 1.27 mg/dL 04/10/2025 4:20 AM T [facility] Sodium 137 136 - 145 mmol/L 04/10/2025 4:20 AM [facility] Potassium 3.9 3.5 - 5.2 mmol/L 04/10/2025 4:20 AM EDT [facility] Chloride 102 98 - 107 mmol/L 04/10/2025 4:20 AM EDT [facility] CO2 26.9 22.0 - 29.0 mmol/L 04/10/2025 4:20 AM [facility] Calcium 7.9(L) 8.6 - 10.5 mg/dL 04/10/2025 4:20 AM [facility] BUN/Creatinine Ratio 20.6 7.0 - 25.0 04/10/2025 4:20 AM [facility] Anion Gap 8.1 5.0 - 15.0 mmol/L 04/10/2025 4:20 AM [facility] eGFR 113.2 >60.0 mL/min/1.7 3 04/10/2025 4:20 AM [facility] Blood Venipuncture / Unknown 04/10/2025 3:46 [...] DO LAB BLOOD ORDERABLES Final Resul t [facility]
[address] [place] [address], * Heparin Anti-Xa (04/10/2025 3:46 AM EDT) Heparin Anti-Xa (UFH) 0.35 0.30 - 0.70 IU/ml 04/10/2025 4:23 AM EDT [facility] Blood Venipuncture / Unknown 04/10/2025 3:46 AM EDT 04/10/2025 3:[address] [facility] LAB BLOOD ORDERABLES Final R esult Performing Organization Address City/[facility]/ZIP Co de Phone Number [facility]
[address] [place] [address], * Heparin Anti-Xa (04/09/2025 10:05 AM EDT) Heparin Anti-Xa (UFH) 0.36 0.30 - 0.70 IU/ml 04/09/2025 11:12 AM EDT [facility] Blood Venipuncture / Unknown 04/09/2025 10:05 AM EDT 04/09/2025 10:47 AM EDT [facility] LAB BLOOD ORDERABLES Final R esult [facility]
[address] [place] [address], * (ABNORMAL) CBC Auto Differential (04/09/2025 4:18 AM EDT) WBC 11.00(H) 3.40 - 10.80 10*3/mm3 04/09/2025 4:50 AM [facility] RBC 4.70 4.14 - 5.80 10*6/mm3 04/09/2025 4:50 AM EDT [facility] Hemoglobin 13.0 13.0 - 17.7 g/dL 04/09/2025 4:50 AM EDT [facility] Hematocrit 40.4 37.5 - 51.0 % 04/09/2025 4:50 AM EDT [facility] MCV 86.0 79.0 - 97.0 fL 04/09/2025 4:50 AM EDT [facility] MCH 27.7 26.6 - 33.0 pg 04/09/2025 4:50 [facility] MCHC 32.2 31.5 - 35.7 g/dL 04/09/2025 4:50 AM [facility] RDW 12.8 12.3 - 15.4 % 04/09/2025 4:50 AM [facility] RDW-SD 39.9 37.0 - 54.0 fl 04/09/2025 4:50 AM [facility] MPV 10.0 6.0 - 12.0 fL 04/09/2025 4:50 AM [facility] Platelets 211 140 - 450 10*3/mm3 04/09/2025 4:50 AM [facility] Neutrophil % 74.8 42.7 - 76.0 % 04/09/2025 4:50 AM EDT [facility] Lymphocyte % 15.4(L) 19.6 - 45.3 % 04/09/2025 4:50 AM EDT [facility] Monocyte % 8.5 5.0 - 12.0 % 04/09/2025 4:50 AM EDT [facility] Eosinophil % 0.6 0.3 - 6.2 % 04/09/2025 4:50 AM [facility] Basophil % 0.4 0.0 - 1.5 % 04/09/2025 4:50 AM EDT [facility] Immature Grans % 0.3 0.0 - 0.5 % 04/09/2025 4:50 AM EDT [facility] Neutrophils, Absolute 8.23(H) 1.70 - 7.00 10*3/mm3 04/09/2025 4:50 AM EDT [facility] Lymphocytes, Absolute 1.69 0.70 - 3.10 10*3/mm3 04/09/2025 4:50 AM EDT [facility] Monocytes, Absolute 0.94(H) 0.10 - 0.90 10*3/mm3 04/09/2025 4:50 AM EDT [facility] Eosinophils, Absolute 0.07 0.00 - 0.40 10*3/mm3 04/09/2025 4:50 AM EDT [facility] Basophils, Absolute 0.04 0.00 - 0.20 10*3/mm3 04/09/2025 4:50 AM EDT [facility] Immature Grans, Absolute 0.03 0.00 - 0.05 10*3/mm3 04/09/2025 4:50 AM EDT [facility] nRBC 0.0 0.0 - 0.2 /100 WBC 04/09/2025 4:50 AM EDT [facility] Blood Venipuncture / Unknown 04/09/2025 4:18 AM EDT 04/09/2025 4:31 AM EDT Sushil Dean Jr., MD LAB BLOOD ORDERABLES Fi nal Result [facility]
[address] [place] [address], * Heparin Anti-Xa (04/09/2025 4:18 AM EDT) Heparin Anti-Xa (UFH) 0.41 0.30 - 0.70 IU/ml 04/09/2025 4:53 AM EDT [facility] Blood Venipuncture / Unknown 04/09/2025 4:18 AM EDT 04/09/2025 4:31 AM EDT Una Wheeleroy PharmD LAB BLOOD ORDERABLES Final R esult [facility]
[address] [place] [address], * (ABNORMAL) Basic Metabolic Panel (04/09/2025 4:18 AM EDT) Pathologist [facility] Glucose 147(H) 65 - 99 mg/dL 04/09/2025 5:33 AM EDT [facility] BUN 23.0(H) 6.0 - 20.0 mg/dL 04/09/2025 5:33 AM EDT [facility] Creatinine 1.15 0.76 - 1.27 mg/dL 04/09/2025 5:33 AM EDT [facility] Sodium 135(L) 136 - 145 mmol/L 04/09/2025 5:33 AM EDT [facility] Potassium 4.2 3.5 - 5.2 mmol/L 04/09/2025 5:33 AM EDT [facility] Chloride 100 98 - 107 mmol/L 04/09/2025 5:33 AM EDT [facility] CO2 26.0 22.0 - 29.0 mmol/L 04/09/2025 5:33 AM EDT [facility] Calcium 8.2(L) 8.6 - 10.5 mg/dL 04/09/2025 5:33 AM EDT [facility] BUN/Creatinine Ratio 20.0 7.0 - 25.0 04/09/2025 5:33 AM EDT [facility] Anion Gap 9.0 5.0 - 15.0 mmol/L 04/09/2025 5:33 AM EDT [facility] eGFR 80.5 >60.0 mL/min/1.7 3 04/09/2025 5:33 AM EDT [facility] Blood Venipuncture / Unknown 04/09/2025 4:18 AM EDT 04/09/2025 4:29 AM EDT Narrative [facility] - 04/09/2025 5:33 AM [...] Result Performing Organization Address [facility] Co de Phone Number [facility]
[address] [place] [address], * Wound Culture - Swab, Leg, Right (04/08/2025 3:40 PM EDT) Wound Culture No growth at 3 days ALIZA 04/11/2025 10:40 AM EDT [facility] Gram Stain Few (2+) WBCs seen 04/11/2025 10:40 AM EDT [facility] Gram Stain No organisms seen 04/11/2025 10:40 AM EDT [facility] Swab Structure of right lower limb / Unknown 04/08/2025 3:40 PM EDT 04/08/2025 8:05 PM EDT Sushil Dean Jr., MD MICROBIOLOGY - GENERAL ORDERABLES Final Result Performing Organization Address City/[facility]/ZIP Co de Phone Number [facility]
[address] [place] [phone], [facility]
[address] [place] [address], * Anaerobic Culture - Swab, Leg, Right (04/08/2025 3:40 PM EDT) Pathologist [facility] Anaerobic Culture No anaerobes isolated at 5 days ALIZA 04/13/2025 7:24 AM EDT [facility] Swab Structure of right lower limb / Unknown 04/08/2025 3:40 PM EDT 04/08/2025 8:05 PM EDT Sushil Dean Jr., MD MICROBIOLOGY - GENERAL ORDERABLES Final Result Performing Organization Address City/[facility] Co de Phone Number [facility]
[address] [place] [address], [place] [phone] * Scan Slide (04/08/2025 8:41 AM EDT) Pathologist [facility] RBC Morphology Normal Normal 04/08/2025 11:02 AM EDT [facility] WBC Morphology Normal Normal 04/08/2025 11:02 AM EDT [facility] Platelet Estimate Adequate Normal 04/08/2025 11:02 AM EDT [facility] Clumped Platelets Present None Seen 04/08/2025 11:02 AM EDT [facility] Blood Venipuncture / Unknown 04/08/2025 8:41 AM EDT 04/08/2025 9:10 AM EDT Una LundbergD LAB BLOOD ORDERABLES Final R esult Performing Organization Address City/[facility]/ZIP Co de Phone Number [facility]
[address] [place] [address], [place] [phone] * (ABNORMAL) CBC Auto Differential (04/08/2025 8:41 AM EDT) Pathologist [facility] WBC 10.07 3.40 - 10.80 10*3/mm3 04/08/2025 11:02 AM EDT [facility] RBC 5.01 4.14 - 5.80 10*6/mm3 04/08/2025 11:02 AM EDT [facility] Hemoglobin 14.0 13.0 - 17.7 g/dL 04/08/2025 11:02 AM [facility] Hematocrit 42.7 37.5 - 51.0 % 04/08/2025 11:02 AM [facility] MCV 85.2 79.0 - 97.0 fL 04/08/2025 11:02 AM [facility] MCH 27.9 26.6 - 33.0 pg 04/08/2025 11:02 AM [facility] MCHC 32.8 31.5 - 35.7 g/dL 04/08/2025 11:02 AM [facility] RDW 12.6 12.3 - 15.4 % 04/08/2025 11:02 AM [facility] RDW-SD 38.9 37.0 - 54.0 fl 04/08/2025 11:02 AM [facility] MPV 11.0 6.0 - 12.0 fL 04/08/2025 11:02 AM [facility] Platelets 118(L) 140 - 450 10*3/mm3 04/08/2025 11:02 AM [facility] Neutrophil % 85.1(H) 42.7 - 76.0 % 04/08/2025 11:02 AM [facility] Lymphocyte % 9.3(L) 19.6 - 45.3 % 04/08/2025 11:02 AM [facility] Monocyte % 4.6(L) 5.0 - 12.0 % 04/08/2025 11:02 AM [facility] Eosinophil % 0.3 0.3 - 6.2 % 04/08/2025 11:02 AM [facility] Basophil % 0.2 0.0 - 1.5 % 04/08/2025 11:02 AM [facility] Immature Grans % 0.5 0.0 - 0.5 % 04/08/2025 11:02 AM [facility] Neutrophils, Absolute 8.57(H) 1.70 - 7.00 10*3/mm3 04/08/2025 11:02 AM EDT [facility] Lymphocytes, Absolute 0.94 0.70 - 3.10 10*3/mm3 04/08/2025 11:02 AM EDT [facility] Monocytes, Absolute 0.46 0.10 - 0.90 10*3/mm3 04/08/2025 11:02 AM EDT [facility] Eosinophils, Absolute 0.03 0.00 - 0.40 10*3/mm3 04/08/2025 11:02 AM EDT [facility] Basophils, Absolute 0.02 0.00 - 0.20 10*3/mm3 04/08/2025 11:02 AM EDT [facility] Immature Grans, Absolute 0.05 0.00 - 0.05 10*3/mm3 04/08/2025 11:02 AM EDT [facility] nRBC 0.0 0.0 - 0.2 /100 WBC 04/08/2025 11:02 AM EDT [facility] Blood Venipuncture / Unknown 04/08/2025 8:41 AM EDT 04/08/2025 9:10 AM EDT Una Perla PharmD LAB BLOOD ORDERABLES Final R esult [facility]
[address] [place] [address], * (ABNORMAL) Basic Metabolic Panel (04/08/2025 8:41 AM EDT) Glucose 125(H) 65 - 99 mg/dL 04/08/2025 9:51 AM EDT [facility] BUN 13.2 6.0 - 20.0 mg/dL 04/08/2025 9:51 AM EDT [facility] Creatinine 0.69(L) 0.76 - 1.27 mg/dL 04/08/2025 9:51 AM EDT [facility] Sodium 136 136 - 145 mmol/L 04/08/2025 9:51 AM EDT [facility] Potassium 4.6 3.5 - 5.2 mmol/L 04/08/2025 9:51 AM EDT [facility] Chloride 102 98 - 107 mmol/L 04/08/2025 9:51 AM EDT [facility] CO2 23.5 22.0 - 29.0 mmol/L 04/08/2025 9:51 AM EDT [facility] Calcium 8.4(L) 8.6 - 10.5 mg/dL 04/08/2025 9:51 AM EDT [facility] BUN/Creatinine Ratio 19.1 7.0 - 25.0 04/08/2025 9:51 AM EDT [facility] Anion Gap 10.5 5.0 - 15.0 mmol/L 04/08/2025 9:51 AM EDT [facility] eGFR 117.0 >60.0 mL/min/1.7 3 04/08/2025 9:51 AM EDT [facility] Blood Venipuncture / [...] Jr., MD LAB BLOOD ORDERABLES nal Result [facility]
[address] [place] [address], * Heparin Anti-Xa (04/08/2025 8:41 AM EDT) Heparin Anti-Xa (UFH) 0.33 0.30 - 0.70 IU/ml 04/08/2025 9:40 AM EDT [facility] Blood Venipuncture / Unknown 04/08/2025 8:41 AM EDT 04/08/2025 9:10 AM EDT Sushil Dean Jr., MD LAB BLOOD ORDERABLES Fi nal Result [facility]
[address] [place] [address], * FL C Arm During Surgery (04/07/2025 9:32 PM EDT) Narrative SYSTEMGENERATED, DOCUMENTATION - 04/07/2025 9:38 PM EDT This procedure was auto-finalized with no dictation required. Sushil Dean Jr., MD IMG FLUOROSCOPY ORDERAB LES Final Result * Wound Culture - Swab, Leg, Right (04/07/2025 9:14 PM EDT) Wound Culture No growth at 3 days ALIZA 04/11/2025 10:40 AM EDT [facility] Gram Stain Occasional WBCs seen 04/11/2025 10:40 AM EDT [facility] Gram Stain No organisms seen 04/11/2025 10:40 AM EDT [facility] Swab Structure of right lower limb / Unknown Collection / Unknown 04/07/2025 9:14 PM EDT 04/08/2025 4:36 AM EDT Sushil Dean Jr., MD MICROBIOLOGY - GENERAL ORDERABLES Final Result [facility]
[address] [place] [address], [facility]
[address] [place] [address], * Anaerobic Culture - Swab, Leg, Right (04/07/2025 9:14 PM EDT) Anaerobic Culture No anaerobes isolated at 5 days ALIZA 04/13/2025 7:21 AM EDT [facility] Swab Structure of right lower limb / Unknown Collection / Unknown 04/07/2025 9:14 PM EDT 04/08/2025 4:36 AM EDT Sushil Dean Jr., MD MICROBIOLOGY - GENERAL ORDERABLES Final Result Performing Organization Address City/[facility]/ZIP Co de Phone Number [facility]
[address] [place] [address], * Anaerobic Culture - Tissue, Leg (04/07/2025 9:13 PM EDT) Anaerobic Culture No anaerobes isolated at 5 days ALIZA 04/13/2025 7:21 AM EDT [facility] Tissue Lower limb structure / Unknown Collection / Unknown 04/07/2025 9:13 PM EDT 04/08/2025 4:54 AM EDT Jason Álvarez DO MICROBIOLOGY - GENERAL ORDERABLE S Final Result [facility]
[address] [place] [address], * Tissue / Bone Culture - Tissue, Leg, Right (04/07/2025 9:13 PM EDT) Tissue Culture No growth at 3 days ALIZA 04/11/2025 10:36 AM EDT [facility] Gram Stain Rare (1+) WBCs seen 04/11/2025 10:36 AM EDT [facility] Gram Stain No organisms seen 04/11/2025 10:36 AM EDT [facility] Tissue Structure of right lower limb / Unknown 04/07/2025 9:13 PM EDT 04/08/2025 4:54 AM EDT Sushil Dean Jr., MD MICROBIOLOGY - GENERAL ORDERABLES Final Result Performing Organization Address City/[facility]/ZIP Co de Phone Number [facility]
[address] [place] [address], [place] [phone] [facility]
[address] [place] [address], [place] [phone] * (ABNORMAL) Wound Culture - Swab, Leg, Right (04/07/2025 9:07 PM EDT) Wound Culture Light growth (2+) Staphylococcus aureus, MRSA(A) ALIZA 04/10/2025 10:38 AM EDT [facility] Comment: Methicillin resistant Staphylococcus aureus, Patient may be an isolation risk. Gram Stain Few (2+) WBCs seen 04/10/2025 10:38 AM EDT [facility] Gram Stain No organisms seen 10:38 AM EDT [facility] Swab [...] MD MICROBIOLOGY - GENERAL ORDERABLES Final Result [facility]
[address] [place] [address], [facility]
[address] [place] [address], * Anaerobic Culture - Swab, Leg, Right (04/07/2025 9:07 PM EDT) Pathologist [facility] [place] Anaerobic Culture No anaerobes isolated at 5 days ALIZA 04/13/2025 7:21 AM EDT [facility] Swab Structure of right lower limb / Unknown Collection / Unknown 04/07/2025 9:07 PM EDT 04/08/2025 4:36 AM EDT Sushil Dean Jr., MD MICROBIOLOGY - GENERAL ORDERABLES Final Result Performing Organization Address [facility] Co de Phone Number [facility]
[address] [place] [address], * Heparin Anti-Xa (04/07/2025 9:10 AM EDT) [facility] Heparin Anti-Xa ([facility]) 0.30 0.30 - 0.70 IU/ml 04/07/2025 10:12 AM EDT [facility] Blood Venipuncture / Unknown 04/07/2025 9:10 AM EDT 04/07/2025 9:38 AM EDT Una LundbergD LAB BLOOD ORDERABLES Final R esult Performing Organization Address City/[facility]/ZIP Co de Phone Number [facility]
[address] [place] [address], * (ABNORMAL) CBC Auto Differential (04/07/2025 9:10 AM EDT) Pathologist [facility] [place] WBC 8.63 3.40 - 10.80 10*3/mm3 04/07/2025 9:50 AM EDT [facility] RBC 5.23 4.14 - 5.80 10*6/mm3 04/07/2025 9:[facility] Hemoglobin 14.7 13.0 - 17.7 g/dL 04/07/2025 9:50 [facility] Hematocrit 44.8 37.5 - 51.0 % 04/07/2025 9:50 [facility] MCV 85.7 79.0 - 97.0 fL 04/07/2025 9:50 AM EDT [facility] MCH 28.1 26.6 - 33.0 pg 04/07/2025 9:50 [facility] MCHC 32.8 31.5 - 35.7 g/dL 04/07/2025 9:50 [facility] RDW 12.8 12.3 - 15.4 % 04/07/2025 9:50 AM [facility] RDW-SD 39.9 37.0 - 54.0 fl 04/07/2025 9:50 AM [facility] MPV 10.8 6.0 - 12.0 fL 04/07/2025 9:50 AM [facility] Platelets 149 140 - 450 10*3/mm3 04/07/2025 9:50 [facility] Neutrophil % 66.7 42.7 - 76.0 % 04/07/2025 9:50 AM [facility] Lymphocyte % 20.5 19.6 - 45.3 % 04/07/2025 9:50 AM EDT [facility] Monocyte % 9.8 5.0 - 12.0 % 04/07/2025 9:50 [facility] Eosinophil % 2.1 0.3 - 6.2 % 04/07/2025 9:50 [facility] Basophil % 0.3 0.0 - 1.5 % 04/07/2025 9:50 [facility] Immature Grans % 0.6(H) 0.0 - 0.5 % 04/07/2025 9:50 AM EDT [facility] [facility] Neutrophils, Absolute 5.75 1.70 - 7.00 10*3/mm3 04/07/2025 9:50 AM EDT [facility] Lymphocytes, Absolute 1.77 0.70 - 3.10 10*3/mm3 04/07/2025 9:50 AM EDT [facility] Monocytes, Absolute 0.85 0.10 - 0.90 10*3/mm3 04/07/2025 9:50 AM EDT [facility] Eosinophils, Absolute 0.18 0.00 - 0.40 10*3/mm3 04/07/2025 9:50 AM EDT [facility] Basophils, Absolute 0.03 0.00 - 0.20 10*3/mm3 04/07/2025 9:50 AM EDT [facility] Immature Grans, Absolute 0.05 0.00 - 0.05 10*3/mm3 04/07/2025 9:50 AM EDT [facility] nRBC 0.0 0.0 - 0.2 /100 WBC 04/07/2025 9:50 AM EDT [facility] Blood Venipuncture / Unknown 04/07/2025 9:10 AM EDT 04/07/2025 9:38 AM EDT us Jason Álvarez DO LAB BLOOD ORDERABLES Final Resul t [facility]
[address] [place] [address], * (ABNORMAL) Basic Metabolic Panel (04/07/2025 9:10 AM EDT) Glucose 112(H) 65 - 99 mg/dL 04/07/2025 10:19 AM EDT [facility] BUN 13.1 6.0 - 20.0 mg/dL 04/07/2025 10:19 AM EDT [facility] Creatinine 0.77 0.76 - 1.27 mg/dL 04/07/2025 10:19 AM EDT [facility] Sodium 139 136 - 145 mmol/L 04/07/2025 10:19 AM EDT [facility] Potassium 4.2 3.5 - 5.2 mmol/L 04/07/2025 10:19 AM EDT [facility] Comment:Specimen hemolyzed. Result may be falsely elevated. Chloride 105 98 - 107 mmol/L 04/07/2025 10:19 AM EDT [facility] CO2 24.8 22.0 - 29.0 mmol/L 04/07/2025 10:19 AM EDT [facility] Calcium 8.6 8.6 - 10.5 mg/dL 04/07/2025 10:19 AM T [facility] BUN/Creatinine Ratio 17.0 7.0 - 25.0 04/07/2025 10:19 AM EDT [facility] Anion Gap 9.2 5.0 - 15.0 mmol/L 04/07/2025 10:19 AM T [facility] eGFR 113.2 >60.0 mL/min/1.7 3 04/07/2025 10:19 AM T [facility] Blood Venipuncture / Unknown 04/07/2025 9:10 AM EDT 04/07/2025 9:38 AM EDT Narrative [facility] - 04/07/2025 10:19 AM [...] DO LAB BLOOD ORDERABLES Final Resul t [facility]
[address] [place] [address], * MRI Tibia Fibula Right With & [...] [place] 04/07/2025 9:58 AM EDT Workstation ID: [id number] Narrative 04/07/2025 9:58 AM EDT MRI TIBIA [...] [place] 04/07/2025 9:58 AM EDT Workstation ID: [id number] us Sushil Dean Jr., MD [facility] MRI ORDERABLES Mary Beth l Result * Heparin Anti-Xa (04/07/2025 1:42 AM EDT) Heparin Anti-Xa (UFH) 0.38 0.30 - 0.70 IU/ml 04/07/2025 2:14 AM EDT [facility] Blood Venipuncture / Unknown 04/07/2025 1:42 AM EDT 04/07/2025 1:54 AM EDT Chelsie Navarretesapna [facility] LAB BLOOD ORDERABLES Final R esult Performing Organization Address City/[facility]/ZIP Co de Phone Number [facility]
[address] [place] [address], * Heparin Anti-Xa (04/06/2025 7:16 PM EDT) Pathologist [facility] [place] Heparin Anti-Xa (UFH) 0.33 0.30 - 0.70 IU/ml 04/06/2025 7:50 PM EDT [facility] Blood Venipuncture / Unknown 04/06/2025 7:16 PM EDT 04/06/2025 7:35 PM EDT Cherri Beatty [facility] LAB BLOOD ORDERABLES Final Res ult Performing Organization Address City/[facility] Co de Phone Number [facility]
[address] [place] [address], * Potassium (04/06/2025 7:16 PM EDT) Pathologist [facility] [place] Potassium 4.0 3.5 - 5.2 mmol/L 04/06/2025 7:53 PM EDT [facility] Blood Venipuncture / Unknown 04/06/2025 7:16 PM EDT 04/06/2025 7:35 PM EDT Jason Álvarez DO LAB BLOOD ORDERABLES Final Resul t Performing Organization Address City/[facility]/ZIP Co de Phone Number [facility]
[address] [place] [address], * (ABNORMAL) Heparin Anti-Xa (04/06/2025 12:36 PM EDT) Heparin Anti-Xa (UFH) 0.24(L) 0.30 - 0.70 IU/ml 04/06/2025 1:23 PM EDT [facility] Blood Venipuncture / Unknown 04/06/2025 12:36 PM EDT 04/06/2025 1:07 PM EDT Una LundbergD LAB BLOOD ORDERABLES Final R esult [facility]
[address] [place] [address], * (ABNORMAL) Heparin Anti-Xa (04/06/2025 3:42 AM EDT) [facility] Heparin Anti-Xa (UFH) 0.25(L) 0.30 - 0.70 IU/ml 04/06/2025 5:30 AM EDT [facility] Blood Venipuncture / Unknown 04/06/2025 3:42 AM EDT 04/06/2025 4:59 AM EDT Chelsie Turpin [facility] LAB BLOOD ORDERABLES Final R esult [facility]
[address] [place] [address], * (ABNORMAL) Basic Metabolic Panel (04/06/2025 3:42 AM EDT) [facility] Glucose 94 65 - 99 mg/dL 04/06/2025 5:59 AM EDT [facility] BUN 12.8 6.0 - 20.0 mg/dL 04/06/2025 5:59 AM EDT [facility] Creatinine 0.80 0.76 - 1.27 mg/dL 04/06/2025 5:59 AM EDT [facility] Sodium 138 136 - 145 mmol/L 04/06/2025 5:59 AM EDT [facility] Potassium 3.6 3.5 - 5.2 mmol/L 04/06/2025 5:59 AM EDT [facility] Chloride 103 98 - 107 mmol/L 04/06/2025 5:59 AM EDT [facility] CO2 24.2 22.0 - 29.0 mmol/L 04/06/2025 5:59 AM EDT [facility] Calcium 8.0(L) 8.6 - 10.5 mg/dL 04/06/2025 5:59 AM EDT [facility] BUN/Creatinine Ratio 16.0 7.0 - 25.0 04/06/2025 5:59 AM EDT [facility] Anion Gap 10.8 5.0 - 15.0 mmol/L 04/06/2025 5:59 AM EDT [facility] eGFR 111.9 >60.0 mL/min/1.7 3 04/06/2025 5:59 AM EDT [facility] Blood Venipuncture / Unknown 04/06/2025 3:42 AM EDT 04/06/2025 5:20 AM EDT Narrative [facility] - 04/06/2025 5:59 AM [...] DO LAB BLOOD ORDERABLES Final Resul t [facility]
[address] [place] [address], * (ABNORMAL) CBC Auto Differential (04/06/2025 3:41 AM EDT) WBC 10.86(H) 3.40 - 10.80 10*3/mm3 04/06/2025 5:04 AM EDT [facility] RBC 5.08 4.14 - 5.80 10*6/mm3 04/06/2025 5:04 AM EDT [facility] Hemoglobin 13.9 13.0 - 17.7 g/dL 04/06/2025 5:04 AM EDT [facility] Hematocrit 43.7 37.5 - 51.0 % 04/06/2025 5:04 AM EDT [facility] MCV 86.0 79.0 - 97.0 fL 04/06/2025 5:04 AM EDT [facility] MCH 27.4 26.6 - 33.0 pg 04/06/2025 5:04 AM EDT [facility] MCHC 31.8 31.5 - 35.7 g/dL 04/06/2025 5:04 AM EDT [facility] RDW 12.8 12.3 - 15.4 % 04/06/2025 5:04 AM EDT [facility] RDW-SD 40.0 37.0 - 54.0 fl 04/06/2025 5:04 AM EDT [facility] MPV 11.7 6.0 - 12.0 fL 04/06/2025 5:04 AM EDT [facility] Platelets 115(L) 140 - 450 10*3/mm3 04/06/2025 5:04 AM EDT [facility] Neutrophil % 65.3 42.7 - 76.0 % 04/06/2025 5:04 AM EDT [facility] Lymphocyte % 20.5 19.6 - 45.3 % 04/06/2025 5:04 AM EDT [facility] Monocyte % 11.8 5.0 - 12.0 % 04/06/2025 5:04 AM EDT [facility] Eosinophil % 1.8 0.3 - 6.2 % 04/06/2025 5:04 AM EDT [facility] Basophil % 0.3 0.0 - 1.5 % 04/06/2025 5:04 AM EDT [facility] Immature Grans % 0.3 0.0 - 0.5 % 04/06/2025 5:04 AM EDT [facility] Neutrophils, Absolute 7.09(H) 1.70 - 7.00 10*3/mm3 04/06/2025 5:04 AM EDT [facility] Lymphocytes, Absolute 2.23 0.70 - 3.10 10*3/mm3 04/06/2025 5:04 AM EDT [facility] Monocytes, Absolute 1.28(H) 0.10 - 0.90 10*3/mm3 04/06/2025 5:04 AM EDT [facility] Eosinophils, Absolute 0.20 0.00 - 0.40 10*3/mm3 04/06/2025 5:04 AM EDT [facility] Basophils, Absolute 0.03 0.00 - 0.20 10*3/mm3 04/06/2025 5:04 AM EDT [facility] Immature Grans, Absolute 0.03 0.00 - 0.05 10*3/mm3 04/06/2025 5:04 AM EDT [facility] nRBC 0.0 0.0 - 0.2 /100 WBC 04/06/2025 5:04 AM EDT [facility] Blood Venipuncture / Unknown 04/06/2025 3:41 AM EDT 04/06/2025 4:58 AM EDT us Jason Álvarez DO LAB BLOOD ORDERABLES Final Resul t [facility]
[address] [place] [address], * Heparin Anti-Xa (04/05/2025 8:43 PM EDT) Heparin Anti-Xa (UFH) 0.38 0.30 - 0.70 IU/ml 04/05/2025 9:09 PM EDT [facility] Blood Venipuncture / Unknown 04/05/2025 8:43 PM EDT 04/05/2025 8:55 PM EDT Cherri Beatty [facility] LAB BLOOD ORDERABLES Final Res ult Performing Organization Address [facility] Co de Phone Number [facility]
[address] [place] [address], * CK (04/05/2025 12:15 PM EDT) Creatine Kinase 140 20 - 200 U/L 04/05/2025 1:31 PM EDT [facility] Blood Venipuncture / Unknown 04/05/2025 12:15 PM EDT 04/05/2025 1:03 PM EDT Carlton Mead MD LAB BLOOD ORDERABLES Final R esult Performing Organization Address [facility] Co de Phone Number [facility]
[address] [place] [address], [place] [phone] * (ABNORMAL) Heparin Anti-Xa (04/05/2025 12:15 PM EDT) Heparin Anti-Xa (UFH) 0.17(L) 0.30 - 0.70 IU/ml 04/05/2025 1:21 PM EDT [facility] Blood Venipuncture / Unknown 04/05/2025 12:15 PM EDT 04/05/2025 1:04 PM EDT Una LundbergD LAB BLOOD ORDERABLES Final R esult Performing Organization Address City/[facility]/ZIP Co de Phone Number [facility]
[address] [place] [address], * (ABNORMAL) aPTT (04/05/2025 3:54 AM EDT) [facility] PTT 35.3(L) 60.0 - 90.0 seconds 04/05/2025 4:31 AM EDT [facility] Blood Venipuncture / Unknown 04/05/2025 3:54 AM EDT 04/05/2025 4:15 AM EDT Narrative [facility] - 04/05/2025 4:31 AM EDT PTT = The equivalent PTT values for the therapeutic range of heparin levels at 0.3 to 0.5 U/ml are 60 to 70 seconds. Una Perla [employer] LAB BLOOD ORDERABLES Final R esult Performing Organization Address [facility] Co de Phone Number [facility]
[address] [place] [address], * Heparin Anti-Xa (04/05/2025 3:54 AM EDT) [facility] Heparin Anti-Xa (UFH) 0.30 0.30 - 0.70 IU/ml 04/05/2025 4:32 AM EDT [facility] Blood Venipuncture / Unknown 04/05/2025 3:54 AM EDT 04/05/2025 4:15 AM EDT [employer] LAB BLOOD ORDERABLES Final R esult Performing Organization Address City/[facility] Co de Phone Number [facility]
[address] [place] [address], * (ABNORMAL) CBC Auto Differential (04/05/2025 3:54 AM EDT) [facility] WBC 11.18(H) 3.40 - 10.80 10*3/mm3 04/05/2025 4:20 AM EDT [facility] RBC 5.00 4.14 - 5.80 10*6/mm3 04/05/2025 4:20 AM EDT [facility] Hemoglobin 13.9 13.0 - 17.7 g/dL 04/05/2025 4:20 AM EDT [facility] Hematocrit 42.4 37.5 - 51.0 % 04/05/2025 4:20 AM EDT [facility] MCV 84.8 79.0 - 97.0 fL 04/05/2025 4:20 AM EDT [facility] MCH 27.8 26.6 - 33.0 pg 04/05/2025 4:20 [facility] MCHC 32.8 31.5 - 35.7 g/dL 04/05/2025 4:20 AM [facility] RDW 12.9 12.3 - 15.4 % 04/05/2025 4:20 AM [facility] RDW-SD 39.7 37.0 - 54.0 fl 04/05/2025 4:20 AM [facility] MPV 10.2 6.0 - 12.0 fL 04/05/2025 4:20 AM [facility] Platelets 160 140 - 450 10*3/mm3 04/05/2025 4:20 AM [facility] Neutrophil % 73.5 42.7 - 76.0 % 04/05/2025 4:20 AM [facility] Lymphocyte % 14.0(L) 19.6 - 45.3 % 04/05/2025 4:20 AM EDT [facility] Monocyte % 11.0 5.0 - 12.0 % 04/05/2025 4:20 [facility] Eosinophil % 0.8 0.3 - 6.2 % 04/05/2025 4:20 AM [facility] Basophil % 0.3 0.0 - 1.5 % 04/05/2025 4:20 AM EDT [facility] Immature Grans % 0.4 0.0 - 0.5 % 04/05/2025 4:20 AM EDT [facility] Neutrophils, Absolute 8.23(H) 1.70 - 7.00 10*3/mm3 04/05/2025 4:20 AM EDT [facility] Lymphocytes, Absolute 1.56 0.70 - 3.10 10*3/mm3 04/05/2025 4:20 AM EDT [facility] Monocytes, Absolute 1.23(H) 0.10 - 0.90 10*3/mm3 04/05/2025 4:20 AM EDT [facility] Eosinophils, Absolute 0.09 0.00 - 0.40 10*3/mm3 04/05/2025 4:20 AM EDT [facility] Basophils, Absolute 0.03 0.00 - 0.20 10*3/mm3 04/05/2025 4:20 AM EDT [facility] Immature Grans, Absolute 0.04 0.00 - 0.05 10*3/mm3 04/05/2025 4:20 AM EDT [facility] nRBC 0.0 0.0 - 0.2 /100 WBC 04/05/2025 4:20 AM EDT [facility] Blood Venipuncture / Unknown 04/05/2025 3:54 AM EDT 04/05/2025 4:16 AM EDT Una Perla PharmD LAB BLOOD ORDERABLES Final R esult [facility]
[address] [place] [address], * (ABNORMAL) Basic Metabolic Panel (04/05/2025 3:54 AM EDT) [facility] Signature Glucose 152(H) 65 - 99 mg/dL 04/05/2025 4:40 AM EDT [facility] BUN 17.3 6.0 - 20.0 mg/dL 04/05/2025 4:40 AM T [facility] Creatinine 0.92 0.76 - 1.27 mg/dL 04/05/2025 4:40 AM EDT [facility] Sodium 136 136 - 145 mmol/L 04/05/2025 4:40 AM EDT [facility] Potassium 3.9 3.5 - 5.2 mmol/L 04/05/2025 4:40 AM EDT [facility] Chloride 103 98 - 107 mmol/L 04/05/2025 4:40 AM EDT [facility] CO2 24.0 22.0 - 29.0 mmol/L 04/05/2025 4:40 AM T [facility] Calcium 7.8(L) 8.6 - 10.5 mg/dL 04/05/2025 4:40 AM [facility] BUN/Creatinine Ratio 18.8 7.0 - 25.0 04/05/2025 4:40 AM T [facility] Anion Gap 9.0 5.0 - 15.0 mmol/L 04/05/2025 4:40 AM [facility] eGFR 105.2 >60.0 mL/min/1.7 3 04/05/2025 4:40 AM [facility] Blood Venipuncture / Unknown 04/05/2025 3:54 [...] sult Performing Organization Address [facility] Co de Phone Number [facility]
[address] [place] [address], * (ABNORMAL) aPTT (04/05/2025 12:18 AM EDT) PTT 33.6(L) 60.0 - 90.0 seconds 04/05/2025 12:53 AM EDT [facility] Blood Venipuncture / Unknown 04/05/2025 12:18 AM EDT 04/05/2025 12:37 AM EDT Narrative [facility] - 04/05/2025 12:53 AM EDT PTT = The equivalent PTT values for the therapeutic range of heparin levels at 0.3 to 0.5 U/ml are 60 to 70 seconds. Una Perla PharmD LAB BLOOD ORDERABLES Final R esult Performing Organization Address [facility] Co de Phone Number [facility]
[address] [place] [address], [place] [phone] * (ABNORMAL) Protime-INR (04/05/2025 12:18 AM EDT) Protime 15.9(H) 12.2 - 15.3 Seconds 04/05/2025 12:53 AM EDT [facility] INR 1.19(H) 0.89 - 1.12 04/05/2025 12:53 AM EDT [facility] Blood Venipuncture / Unknown 04/05/2025 12:18 AM EDT 04/05/2025 12:37 AM EDT Una Perla PharmD LAB BLOOD ORDERABLES Final R esult Performing Organization Address City/[facility] Co de Phone Number [facility]
[address] [place] [address], [place] [phone] * Heparin Anti-Xa (04/05/2025 12:18 AM EDT) Heparin Anti-Xa (UFH) 0.39 0.30 - 0.70 IU/ml 04/05/2025 12:54 AM EDT [facility] Blood Venipuncture / Unknown 04/05/2025 12:18 AM EDT 04/05/2025 12:37 AM EDT Una Perla PharmD LAB BLOOD ORDERABLES Final R esult [facility]
[address] [place] [address], * MRI Tibia Fibula Right With & [...] MD 04/04/2025 11:00 PM EDT Workstation ID: [id number] Narrative 04/04/2025 11:00 PM EDT MRI TIBIA [...] MD 04/04/2025 11:00 PM EDT Workstation ID: [id number] us Leonora Shepherd MD IMG MRI ORDERABLES Final Resu lt * POC Creatinine (04/04/2025 2:49 PM EDT) [facility] Creatinine 1.10 0.60 - 1.30 mg/dL 04/07/2025 7:14 PM EDT [facility] Comment:Serial Number: [id number]: [id number] Venous Blood 04/04/2025 2:49 PM EDT 04/07/2025 7:14 PM EDT Jason Álvarez DO POINT OF CARE TEST ORDERABLES Fi nal Result [facility]
[address] [place] [address], * (ABNORMAL) CBC Auto Differential (04/04/2025 2:47 PM EDT) [facility] WBC 12.72(H) 3.40 - 10.80 10*3/mm3 04/04/2025 2:56 PM EDT [facility] RBC 5.64 4.14 - 5.80 10*6/mm3 04/04/2025 2:56 PM EDT [facility] Hemoglobin 15.3 13.0 - 17.7 g/dL 04/04/2025 2:56 PM EDT [facility] Hematocrit 47.9 37.5 - 51.0 % 04/04/2025 2:56 PM EDT [facility] MCV 84.9 79.0 - 97.0 fL 04/04/2025 2:56 PM EDT [facility] MCH 27.1 26.6 - 33.0 pg 04/04/2025 2:56 PM EDT [facility] MCHC 31.9 31.5 - 35.7 g/dL 04/04/2025 2:56 PM EDT [facility] RDW 13.1 12.3 - 15.4 % 04/04/2025 2:56 PM [facility] RDW-SD 40.3 37.0 - 54.0 fl 04/04/2025 2:56 PM EDT [facility] MPV 9.4 6.0 - 12.0 fL 04/04/2025 2:56 PM EDT [facility] Platelets 232 140 - 450 10*3/mm3 04/04/2025 2:56 PM EDT [facility] Neutrophil % 74.9 42.7 - 76.0 % 04/04/2025 2:56 PM EDT [facility] Lymphocyte % 13.1(L) 19.6 - 45.3 % 04/04/2025 2:56 PM [facility] Monocyte % 11.2 5.0 - 12.0 % 04/04/2025 2:56 PM [facility] Eosinophil % 0.4 0.3 - 6.2 % 04/04/2025 2:56 PM EDT [facility] Basophil % 0.2 0.0 - 1.5 % 04/04/2025 2:56 PM [facility] Immature Grans % 0.2 0.0 - 0.5 % 04/04/2025 2:56 PM [facility] Neutrophils, Absolute 9.52(H) 1.70 - 7.00 10*3/mm3 04/04/2025 2:56 PM [facility] Lymphocytes, Absolute 1.66 0.70 - 3.10 10*3/mm3 04/04/2025 2:56 PM EDT [facility] Monocytes, Absolute 1.43(H) 0.10 - 0.90 10*3/mm3 04/04/2025 2:56 PM EDT [facility] Eosinophils, Absolute 0.05 0.00 - 0.40 10*3/mm3 04/04/2025 2:56 PM [facility] Basophils, Absolute 0.03 0.00 - 0.20 10*3/mm3 04/04/2025 2:56 PM EDT [facility] Immature Grans, Absolute 0.03 0.00 - 0.05 10*3/mm3 04/04/2025 2:56 PM EDT [facility] nRBC 0.0 0.0 - 0.2 /100 WBC 04/04/2025 2:56 PM EDT [facility] Blood Venipuncture / Unknown 04/04/2025 2:47 PM EDT 04/04/2025 2:52 PM EDT Mario Ortiz [employer] LAB BLOOD ORDERABLES Fin al Result Performing Organization Address City/[facility]/ZIP Co de Phone Number [facility]
[address] [place] [address], * (ABNORMAL) C-reactive Protein (04/04/2025 2:47 PM EDT) C-Reactive Protein 8.57(H) 0.00 - 0.50 mg/dL 04/04/2025 3:26 PM EDT [facility] Blood Venipuncture / Unknown 04/04/2025 2:47 PM EDT 04/04/2025 2:52 PM EDT Mario Ortiz [employer] LAB BLOOD ORDERABLES Fin al Result Performing Organization Address [facility] de Phone Number [facility]
[address] [place] [address], * (ABNORMAL) Sedimentation Rate (04/04/2025 2:47 PM EDT) Sed Rate 51(H) 0 - 15 mm/hr 04/04/2025 3:06 PM EDT [facility] Blood Venipuncture / Unknown 04/04/2025 2:47 PM EDT 04/04/2025 2:52 PM EDT Mario Ortiz [facility] LAB BLOOD ORDERABLES Fin al Result Performing Organization Address City/[facility]/ZIP Co de Phone Number [facility]
[address] [place] [address], * Comprehensive Metabolic Panel (04/04/2025 2:47 PM EDT) [facility] Glucose 90 65 - 99 mg/dL 04/04/2025 3:26 PM EDT [facility] BUN 18.3 6.0 - 20.0 mg/dL 04/04/2025 3:26 PM EDT [facility] Creatinine 0.94 0.76 - 1.27 mg/dL 04/04/2025 3:26 PM EDT [facility] Sodium 136 136 - 145 mmol/L 04/04/2025 3:26 PM EDT [facility] Potassium 3.8 3.5 - 5.2 mmol/L 04/04/2025 3:26 PM EDT [facility] Chloride 100 98 - 107 mmol/L 04/04/2025 3:26 PM EDT [facility] CO2 25.3 22.0 - 29.0 mmol/L 04/04/2025 3:26 PM EDT [facility] Calcium 8.6 8.6 - 10.5 mg/dL 04/04/2025 3:26 PM EDT [facility] Total Protein 7.3 6.0 - 8.5 g/dL 04/04/2025 3:26 PM EDT [facility] Albumin 4.1 3.5 - 5.2 g/dL 04/04/2025 3:26 PM EDT [facility] ALT (SGPT) 26 1 - 41 U/L 04/04/2025 3:26 PM EDT [facility] AST (SGOT) 25 1 - 40 U/L 04/04/2025 3:26 PM EDT [facility] Alkaline Phosphatase 106 39 - 117 U/L 04/04/2025 3:26 PM EDT [facility] Total Bilirubin 1.0 0.0 - 1.2 mg/dL 04/04/2025 3:26 PM EDT [facility] Globulin 3.2 gm/dL 04/04/2025 3:26 PM EDT [facility] Comment:Calculated Result A/G Ratio 1.3 g/dL 04/04/2025 3:26 PM EDT [facility] BUN/Creatinine Ratio 19.5 7.0 - 25.0 04/04/2025 3:26 PM EDT [facility] Anion Gap 10.7 5.0 - 15.0 mmol/L 04/04/2025 3:26 PM EDT [facility] eGFR 102.5 >60.0 mL/min/1.7 3 04/04/2025 3:26 PM EDT [facility] Blood Venipuncture / Unknown 04/04/2025 2:47 PM EDT 04/04/2025 2:52 PM EDT Narrative [facility] - 04/04/2025 3:26 PM [...] DO LAB BLOOD ORDERABLES Fin al Result [facility]
[address] [place] [address], documented in this encounter Visit Diagnoses Diagnosis [...] 04/05/2025 3:33 PM EDT 2,000 Units heparin 30815 units/250 mL (100 units/mL) in 0.45 % [...] disposal. 0831 (Given - Provider: Amber Salazar, [employer])194 (Given - Provider: Anahy Marcelino, [employer])2129 (Canceled Entry - Provider: Anahy Marcelino RRT [...] Shirley Hart RN)2100 (Canceled Entry - Provider: Alberot Dillon RN) 1003 (Given - Provider: Marguerite [...] for alternative. 2026 (Given - Provider: Alberto Diloln RN) 2030 (Given - Provider: Alberto Dillon [...] Continuous Medication Order 04/09/2025 04/10/2025 04/11/2025 heparin [id number] units/250 mL (100 units/mL) in 0.45 % [...] documented as of this encounter Care Teams Assistant Teaching Professor Relationship Specialty Start Date End Date Provider, [place] [address] PCP - General 05/09/23 documented as of this encounter
--- OUTSIDE RECORDS SUMMARY | 2025-04-07 18:00 | XMS_ITS | Encounter Summary ---
Author Organization [facility] Address [address] [place] [address] Care Team Providers Care Block Sorter Name Role Phone Provider, No Known Primary Care Provider Unavail able Reason for Visit * Reason Comments Leg Swelling * Auth/Cert Specialty Diagnoses / Procedures Referred By Contac t Referred To Contact Diagnoses Right BKA infection Referral ID Status Reason Start Date Expiration Date Visits Re quested Visits Authorized [id number] 1 1 Encounter Details Date Type Department Care Team (Late st Contact Info) Description 04/07/2025 6:00 PM EDT - 04/07/2025 6:52 PM EDT Surgery [facility] OR [address] [place] [address] Sushil Dean Jr., MD [address] [place] [address] [address] [id number] LEG DEBRIDEMENT, IRRIGATION Social History Tobacco Use Types Packs/Day Years Used Date Smoking Tobacco: Never Smokeless Tobacco: Never Tobacco Cessation:Counseling Given: Not Answered Alcohol Use Standard Drinks/Week Comments Not Currently 0 (1 standard drink = 0.6 oz pur e alcohol) [facility] Utilities Answer Date Recorded In the past 12 months has [employer] electric, gas, oil, or water company threatened [...] or training? Not on file Preferred Language Equatorial Guinean 04/07/2025 Sex and Gender Information Value [...] 2:25 PM EDT Cherri Grimm RN * [place] Suicide Severity Rating Scale (Screener/Recent Self-Report) Question [...] Date/Time Wound Culture - Swab, Leg, Right [[id number]] (Abnormal) (Susceptibility) Collected: 04/07/252106 Lab Status: Final [...] Units Date/Time FL C Arm During Surgery [[id number]] Resulted: 04/07/252137 Updated: 04/07/252137 Narrative: This procedure was auto-finalized with no dictation required. MRI Tibia Fibula Right With & Without Contrast [[id number]] Collected: 04/07/25 0938 Updated: 04/07/25 1001 Narrative: [...] Buenrostro 04/07/2025 9:58 AM EDT Workstation ID: [id number] MRI Tibia Fibula Right With & Without Contrast [[id number]] Collected: 04/04/252256 Updated: 04/04/252302 Narrative: MRI TIBIA [...] MD 04/04/2025 11:00 PM EDT Workstation ID: [id number] Pending Labs Order Current Status Fungus Culture [...] Male) Date of 1980 Social Security Number [id number] [place] [address] [place] [address] Orthodoxy Unknown Marital Status Unknown Admission Date 04/04/2025 Admission Type Emergency Admitting Provider Jadny Richardson DO Attending Provider Jadyn Richardson DO Department, Room/Bed [facility] 5G, S565/1 Discharge Date Discharge Disposition Discharge Destination Attending Provider: Jadyn Richardson DO Allergies: Ceftin [Cefuroxime], Keflex [Cephalexin], Latex Isolation: None Infection: MRSA (05/11/23) Code Status: CPR Ht: 180.3 cm (71 ) Wt: 134 kg (295 lb) Admission Cmt: None 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 Insurance as of 04/04/2025 Primary Coverage Payor Plan Insurance Group Employer/Plan Group [place] [id number] Payor Plan Address Payor Plan Phone Number Payor Plan Fax Number Effective Dates [employer] [address] [address] 08/10/2023 - None Entered [facility] [address] Subscriber Name Subscriber Date Member ID WON DENNIS 1980 [id number] Emergency Contacts Instrument Processing Tech (Rel.) Home Phone Work Phone Mobile Phone Avril Dennis (Spouse) -- -- [phone] Robert Hackett (Relative) -- -- [phone] [facility] 5G [address] [facility] [address] Patient: ROOM: [facility] Won Dennis [address] [facility] [place] [address] : 1980 SSN: [id number] Sex: M PCP: Provider, No Known Emergency Contact Information Name Relation Home Work Mobile Avril Dennis Spouse [phone] Other Contacts Name Relation Home Work Mobile Robert Hackett Relative [phone] INSURANCE PAYOR PLAN GROUP # SUBSCRIBER ID Primary: Secondary: MEDICARE [place] [id number] Admitting Diagnosis: 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 He is known to Dr. Dean. [...] Jr., MD, 20 mg at 04/09/25906 heparin 67965 units/250 mL (100 units/mL) in 0.45 % [...] vancomycin 2750 mg/500 mL 0.9% NS IVPB ([facility]) Ordering Provider: Mario Crowley, DO [...] Units Date/Time FL C Arm During Surgery [[id number]] Resulted: 04/07/252137 Updated: 04/07/252137 Narrative: This procedure was auto-finalized with no dictation required. MRI Tibia Fibula Right With & Without Contrast [[id number]] Collected: 04/07/2538 Updated: 04/07/25 1001 Narrative: MRI [...] Buenrostro 04/07/2025 9:58 AM EDT Workstation ID: [id number] Impression: Recurrent Right BKA stump abscess/cellulitis- this [...] discussed his disposition with the pharmacist at [facility] today. I will sign off Outpatient orders: 1. Outpatient intravenous antibiotic therapy: Daptomycin 800 mg IV daily to be supplied by [facility] 2. Home health to perform weekly [...] 04/10/251323 Creation Time: 04/10/251323 Signed Expand All [facility] Medicine Services PROGRESS NOTE Patient Name: [...] Date/Time Wound Culture - Swab, Leg, Right [[id number]] (Abnormal) (Susceptibility) Collected: 04/07/252106 Lab Status: Final [...] Row Name 04/06/25 1143 Sit-Stand Transfer Sit-Stand Thur[place] (Transfers) modified independence - Comment, (Sit-Stand Transfer) Pt stood from recliner. Not holding onto walker, pt able to pull his pants up while balancing on his one leg. -LM Row Name 04/06/25 1143 Gait/Stairs (Locomotion) [place] Level (Gait) modified independence - Distance in [...] Motion bilateral lower extremity ROM WFL -LM [facility] Name 04/06/25 1145 Strength Comprehensive (MMT) General Manual Muscle Testing (MMT) Assessment no strength deficits identified BLEs -LM [facility] Name 04/06/25 1145 Balance Balance Assessment [...] Physical Therapist Goals/Plan No documentation. Clinical Impression [facility] 04/06/25 1146 Pain Pretreatment Pain Rating 0/10 - no pain -LM Posttreatment Pain Rating 0/10 - no pain -LM [facility] 04/06/25 1146 Plan of Care Review Plan of Care Reviewed With patient -LM Outcome Evaluation PT evaluation completed. Pt demonstrated independence with all mobility including ambulating 100 feet using rw - no unsteadiness noted. Pt reports he feels at baseline and doesn't think he needs skilled PT while here. Recommend home at d/c. PT signing off. -LM [facility] Name 04/06/25 1146 Therapy Assessment/Plan (PT) Criteria for Skilled Interventions Met (PT) no;no problems identified which require skilled intervention -LM Therapy Frequency (PT) evaluation only -LM Predicted Duration of Therapy Intervention (PT) Eval Only -LM [facility] Name 04/06/25 1146 Vital Signs Pretreatment Heart Rate (beats/min) 86 -LM Posttreatment Heart Rate (beats/min) 96 -LM Pre SpO2 (%) 95 -LM O2 Delivery Pre Treatment room air -LM Post SpO2 (%) 96 -LM O2 Delivery Post Treatment room air -LM Pre Patient Position Sitting -LM Post Patient Position Sitting -LM [facility] Name 04/06/25 1146 Positioning and Restraints [...] Nurse Physical Therapy Education Title: PT OT HOME HEALTH CLINICAL SUPERVISOR Therapies (Done) Topic: Physical Therapy (Done) Point: Mobility training (Done) Learning Progress Summary Patient Acceptance, E, VU,DU by at 04/06/2025 1147 Point: Precautions (Done) Learning Progress Summary Patient Acceptance, E, VU,DU by at 04/06/2025 1147 User Cabrera Initials Effective Dates Name Provider Type [facility] 01/24/25 - Susan Cavazos, PT Physical Therapist [...] Description Service Date Service Provider Modifiers Qty [id number] PT EVAL LOW COMPLEXITY 3 04/06/2025 Susan Cavazos, PT GP 1 PT G-Codes Outcome Measure Options: AM-PAC 6 Clicks Basic Mobility (PT) AM-PAC 6 Clicks Score (PT): 23 PT Discharge Summary Anticipated Discharge Disposition (PT): home Susan Cvaazos PT 04/06/2025 documented in this encounter Medications [...] mg Daily 04/05/2025 -- Route: Oral heparin 53967 units/250 mL (100 units/mL) in 0.45 % [...] Dean MD April 21 vs April 22 [facility] [address], [address] [facility], [address] Please schedule at [phone] VONDA Garcia 04/11/25 08:32 EDT Cosigned by [...] Date/Time Wound Culture - Swab, Leg, Right [[id number]] (Abnormal) (Susceptibility) Collected: 04/07/252106 Lab Status: Final [...] mg Daily 04/05/2025 -- Route: Oral heparin 13502 units/250 mL (100 units/mL) in 0.45 % [...] Dean MD April 21 vs April 22 [facility] [address], [address] [facility], [address] Please schedule at [phone] VONDA Garcia 04/10/25 09:01 EDT Cosigned by Sushil Dean Jr., MD at 04/19/2025 10:33 AM EDT Associated attestation - Sushil Dean Jr., MD - 04/19/2025 10:33 AM EDT I have reviewed this documentation and agree. * Carlton Mead MD - 04/10/2025 7:38 AM EDT Images from the original note were not included. INFECTIOUS DISEASE Progress Note Won Dennis 1980 [id number] Date of Consult: 04/10/2025 Admission Date: 04/04/2025 [...] which prompted him to seek treatment at [facility]. He is known to Dr. Dean. [...] IRRIGATION; Surgeon: Sushil Dean Jr., MD; Location: [facility]; Service: Orthopedics; Laterality: Right; PLACEMENT OF WOUND VAC Right 04/07/2025 Procedure: WOUND VACUUM ASSISTED CLOSURE; Surgeon: Sushil Dean Jr., MD; Location: [facility] OR; Service: Orthopedics; Laterality: Right; WOUND CLOSURE [...] Jr., MD, 20 mg at 04/09/25906 heparin 29670 units/250 mL (100 units/mL) in 0.45 % [...] Units Date/Time FL C Arm During Surgery [[id number]] Resulted: 04/07/252137 Updated: 04/07/252137 Narrative: This procedure was auto-finalized with no dictation required. MRI Tibia Fibula Right With & Without Contrast [[id number]] Collected: 04/07/25937 Updated: 04/07/25 100 Narrative: MRI [...] Buenrostro 04/07/2025 9:58 AM EDT Workstation ID: [id number] Impression: Recurrent Right BKA stump abscess/cellulitis- this [...] discussed his disposition with the pharmacist at [facility] today. I will sign off Outpatient orders: 1. Outpatient intravenous antibiotic therapy: Daptomycin 800 mg IV daily to be supplied by [facility] 2. Home health to perform weekly [...] MD 04/10/2025 07:38 EDT * Larisa Hamilton [facility] - 04/10/2025 [...] Date/Time Wound Culture - Swab, Leg, Right [[id number]] (Abnormal) Collected: 04/07/252106 Lab Status: Preliminary result [...] Jason Álvarez DO 04/09/25 * [facility]isa [facility] [...] -- Admin Instructions: Open Order & Select [facility] Electrolyte Replacement Protocol Algorithm to [...] mg Daily 04/05/2025 -- Route: Oral heparin 73999 units/250 mL (100 units/mL) in 0.45 % [...] -- Admin Instructions: Open Order & Select [facility] Electrolyte Replacement Protocol Algorithm to [...] in 2 weeks for incision check, radiographs [facility] [address], [address] [facility], [address] Please schedule at [phone] VONDA Garcia 04/09/25 09:18 EDT Cosigned by Sushil Dean Jr., MD at 04/19/2025 10:33 AM EDT Associated attestation - Sushil Dean Jr., MD - 04/19/2025 10:33 AM EDT I have reviewed this documentation and agree. * Carlton Mead MD - 04/09/2025 8:25 AM EDT Images from the original note were not included. INFECTIOUS DISEASE Progress Note Won Dennis 1980 [id number] Date of Consult: 04/09/2025 Admission Date: 04/04/2025 [...] which prompted him to seek treatment at [facility]. He is known to Dr. Dean. [...] Surgeon: Sushil Dean Jr., MD; Location: [facility]; Service: Orthopedics; Laterality: Right; PLACEMENT OF [...] MD, 20 mg at 04/08/25 0800 heparin 58284 units/250 mL (100 units/mL) in 0.45 % [...] Units Date/Time FL C Arm During Surgery [[id number]] Resulted: 04/07/252137 Updated: 04/07/252137 Narrative: This procedure was auto-finalized with no dictation required. MRI Tibia Fibula Right With & Without Contrast [[id number]] Collected: 04/07/25 0938 Updated: 04/07/25 1001 Narrative: [...] Chitra 04/07/2025 9:58 AM EDT Workstation ID: [id number] Impression: Recurrent Right BKA stump abscess/cellulitis- this [...] Buenrostro 04/07/2025 9:58 AM EDT Workstation ID: [id number] I have personally reviewed the therapy plans: [...] Jason Álvarez, DO 04/08/25 * Hamilton, Larisa, [facility] - 04/08/2025 [...] -- Admin Instructions: Open Order & [facility] Electrolyte Replacement Protocol Algorithm to [...] mg Daily 04/05/2025 -- Route: Oral heparin 87463 units/250 mL (100 units/mL) in 0.45 % [...] INFECTIOUS DISEASE Progress Note Won Dennis 1980 [id number] Date of Consult: 04/08/2025 Admission Date: 04/04/2025 [...] which prompted him to seek treatment at [facility]. He is known to Dr. Dean. [...] Oral, Q6H PRN, 500 mg at 04/06/25 4424 OR acetaminophen (TYLENOL) 160 MG/5ML oral solution [...] Jr., MD, 20 mg at 04/07/25950 heparin 82964 units/250 mL (100 units/mL) in 0.45 % [...] vancomycin 2750 mg/500 mL 0.9% NS IVPB ([facility]) Ordering Provider: Mario Crowley, DO [...] Units Date/Time FL C Arm During Surgery [[id number]] Resulted: 04/07/252137 Updated: 04/07/252137 Narrative: This procedure was auto-finalized with no dictation required. MRI Tibia Fibula Right With & Without Contrast [[id number]] Collected: 04/07/25 0938 Updated: 04/07/25 1001 Narrative: [...] Buenrostro 04/07/2025 9:58 AM EDT Workstation ID: [id number] Impression: 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 (Treated by ID in [place] Dr. Harris). Dr. oTrres treated him with [...] Buenrostro 04/07/2025 9:58 AM EDT Workstation ID: [id number] I have personally reviewed the therapy plans: [...] Jason DO Preeti 04/07/25 * Larisa Hamilton, [facility] - 04/07/2025 [...] INFECTIOUS DISEASE Progress Note Won Dennis 1980 [id number] Date of Consult: 04/07/2025 Admission Date: 04/04/2025 [...] which prompted him to seek treatment at [facility]. He is known to Dr. Dean. [...] MD, 20 mg at 04/06/25 0900 heparin 97377 units/250 mL (100 units/mL) in 0.45 % [...] With & Without Contrast - In process [[id number]] Resulted: 04/07/25828 Updated: 04/07/25828 This result has not been signed. Information might be incomplete. MRI Tibia Fibula Right With & Without Contrast [[id number]] Collected: 04/04/252256 Updated: 04/04/253 Narrative: MRI TIBIA [...] MD 04/04/2025 11:00 PM EDT Workstation ID: [id number] Impression: 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 (Treated by ID in [place] Dr. Harris). Dr. Torres treated him with [...] -- Admin Instructions: Open Order & [facility] Electrolyte Replacement Protocol Algorithm to [...] mg Daily 04/05/2025 -- Route: Oral heparin 16724 units/250 mL (100 units/mL) in 0.45 % [...] -- Admin Instructions: Open Order & [facility] Electrolyte Replacement Protocol Algorithm to [...] start -- +11 11 0600 DW LU Hernadnez. Pt has Factor II mutation and needs [...] MD 04/04/2025 11:00 PM EDT Workstation ID: [id number] I have personally reviewed the therapy plans: [...] mg Daily 04/05/2025 -- Route: Oral heparin 83980 units/250 mL (100 units/mL) in 0.45 % [...] -- Admin Instructions: Open Order & [facility] Electrolyte Replacement Protocol Algorithm to [...] -- Admin Instructions: Open Order & Select [facility] Electrolyte Replacement Protocol Algorithm to [...] not included. INFECTIOUS DISEASE follow up. Won Denins 1980 [id number] Date of Consult: 04/06/2025 Admission Date: 04/04/2025 [...] which prompted him to seek treatment at [facility]. He is known to Dr. Dean. [...] MD, 20 mg at 04/06/25 0900 heparin 34395 units/250 mL (100 units/mL) in 0.45 % [...] Tibia Fibula Right With & Without Contrast [[id number]] Collected: 04/04/252256 Updated: 04/04/252302 Narrative: MRI TIBIA [...] MD 04/04/2025 11:00 PM EDT Workstation ID: [id number] Impression: 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 (Treated by ID in [place] Dr. Harris). Dr. Torres treated him with [...] MD 04/04/2025 11:00 PM EDT Workstation ID: [id number] I have personally reviewed the therapy plans: [...] MD 04/04/2025 11:00 PM EDT Workstation ID: [id number] Assessment & Plan Assessment & Plan Won [...] PICC placed by Rhoda Bonner RN [facility], tip verified by 3CG see LDA. 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 male admitted to [facility] with Right BKA infection [...] was evaluated in the emergency department in [place], was discharged with instructions for follow-up. He [...] mouth Daily. 04/03/2025 Morning Lactobacillus-Inulin ([facility] Digestive [facility]) capsule Take 200 mg by [...] MD 04/04/2025 11:00 PM EDT Workstation ID: [id number] Assessment: Right BKA infection 44-year-old male with [...] DISEASE CONSULT/INITIAL HOSPITAL VISIT Won Dennis 1980 [id number] Date of Consult: 04/05/2025 Admission Date: 04/04/2025 [...] which prompted him to seek treatment at [facility]. He is known to Dr. Dean. [...] Leonora Shepherd MD, 40 mg at 04/04/25 4792 sennosides-docusate (PERICOLACE) 8.6-50 MG per tablet 2 [...] MD, 20 mg at 04/05/25 09 heparin 29447 units/250 mL (100 units/mL) in 0.45 % [...] Leonora Shepherd MD, 10 mg at 04/04/25 6220 Pharmacy to Dose Heparin, , Not Applicable, Continuous PRAmber, Una Perla, PharmD Pharmacy to dose vancomycin, , Not Applicable, Continuous PRAbmer, Leonora Shepherd MD Phosphorus Replacement - Follow [...] flush 10 mL, 10 mL, Intravenous, PRN, Leonoar Shepherd MD sodium chloride 0.9 % infusion [...] Tibia Fibula Right With & Without Contrast [[id number]] Collected: 04/04/252256 Updated: 04/04/252302 Narrative: MRI TIBIA [...] represent a small area of phlegmonous change (comadg88 image 10) measuring approximately 1.6 cm which [...] MD 04/04/2025 11:00 PM EDT Workstation ID: [id number] Impression: 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 (Treated by ID in [place] Dr. Harris). Dr. Torres treated him with [...] Jr., MD - 04/08/2025 3:51 PM EDT [facility] OPERATIVE REPORT PATIENT NAME: Won Dennis DATE OF : 1980 PREOP DIAGNOSIS: Right Right below-knee amputation infection POSTOP DIAGNOSIS: Same. PROCEDURE: Right Right 81490: Secondary closure below-knee amputation SURGEON: Sushil Dean MD OPERATIVE TEAM: Security Systems Engineer: Susi Grullon RN Scrub Person: Mary Paredes Scrub Person Extra: Hortencia Toribio Other: Katt Gotti RN; Charis Neville RN ANESTHETIST: Anesthesiologist: Ulises Hoffman MD BARK GRINDER: Stan Casillas CRNA Student Nurse Pillowcase Turner: Karol Albert SRNA ANESTHESIA: Choice ESTIMATED BLOOD [...] CULTURE (Canceled) Sushil Dean Jr., MD 04/08/25 5234 Description: RIGHT LEG DEEP WOUND FOR CULTURE [...] Jr., MD - 04/07/2025 9:03 PM EDT [facility], [place] [address] OPERATIVE REPORT PATIENT NAME: Won Dennis DATE OF : 1980 PREOP DIAGNOSIS: Right Right below knee amputation stump infection POSTOP DIAGNOSIS: Same. PROCEDURE: Right Right 35179: Incision and drainage of surgical site infection 14549: Debridement of skin, subcutaneous tissue, muscle 68763: Wound vacuum-assisted closure SURGEON: Sushil Dean MD OPERATIVE TEAM: Security Systems Engineer: Anum Sanchez RN Scrub Person: Hortencia Toribio; Gerald Ivey [employer] CONSULTANT: Anesthesiologist: Luci Alonso DO ANESTHESIA: General ESTIMATED [...] ago swellling of the area. seen at [facility] yesterday for CT and US, here [...] this chart in the absence of a bus driver/monitor. No orders to display RADIOLOGY: [x] Radiologist's [...] with KELLEE and given themhis Medicare number [id number], she sent it to Admission. DEBRA spoke [...] changes and lab work. DEBRA called [facility] they can accept patient and start him. He is known for their facility. The Facility will need to run it through his insurance first. CM faxed the [facility] to [facility] at [phone]. CM will follow up with them tomorrow [...] 04/09/2025 2:51 PM EDT Continued Stay Note [facility] Patient Name: Won Dennis Today's Date: 04/09/2025 Admit Date: 04/04/2025 Plan: Home Discharge Plan Row Name 04/09/25 1311 Plan Plan Home Patient/Family in Agreement with Plan yes Plan Comments CM spoke with patient at bedside today. Wheelchair from [employer] is at bedside. Patient getting PICC line [...] note were not included. Discharge Planning Assessment [facility] Patient Name: Won Dennis [...] with family Patient/Family Anticipated Services at Transition child support case officercommercial portfolio manager Anticipated family or friend will provide Discharge Needs Assessment Equipment Currently Used at Home glucometer;shower chair;pulse ox;bp cuff;prosthesis;crutches Equipment Needed After Discharge none Discharge Plan Row Name 04/07/25 1144 Plan Plan Home Patient/Family in Agreement with Plan yes Plan Comments CM spoke with patient at bedside today. Patient lives with and his 5 kids in [facility]. 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 He has walker, cane, shower chair, and crutches. He requested a wheelchair for home. CM [facility]. He is not current with home health services. PCP is Dr. Jordan. Insurance is [employer] [place]. Patient discharge plan is home with priavte transport. CM will follow for any discharge needs. Final Discharge Disposition Code 01 - home or self-care Continued Care and Services - Admitted Since 04/04/2025 No active coordination exists. Demographic Summary Row Name 04/07/25 1143 General Information Arrived From hospital Preferred Language Equ[place] Functional Status Row Name 04/07/25 1143 [...] CBC Auto Differential (04/11/2025 3:40 AM EDT) [facility] WBC 7.87 3.40 - 10.80 10*3/mm3 04/11/2025 4:02 AM EDT [facility] RBC 4.70 4.14 - 5.80 10*6/mm3 04/11/2025 4:02 AM [facility] Hemoglobin 12.8(L) 13.0 - 17.7 g/dL 04/11/2025 4:02 AM [facility] Hematocrit 40.5 37.5 - 51.0 % 04/11/2025 4:02 AM [facility] MCV 86.2 79.0 - 97.0 fL 04/11/[facility]25 [facility] MCH 27.2 26.6 - 33.0 pg 04/11/2025 4:02 AM [facility] MCHC 31.6 31.5 - 35.7 g/dL 04/11/2025 4:02 AM [facility] RDW 12.9 12.3 - 15.4 % 04/11/2025 4:02 AM [facility] RDW-SD 40.5 37.0 - 54.0 fl 04/11/2025 4:02 AM [facility] MPV 9.2 6.0 - 12.0 fL 04/11/2025 4:02 AM [facility] Platelets 267 140 - 450 10*3/mm3 04/11/2025 4:02 AM [facility] Neutrophil % 59.5 42.7 - 76.0 % 04/11/2025 4:02 AM [facility] [facility] Lymphocyte % 26.3 19.6 - 45.3 % 04/11/2025 4:02 AM [facility] Monocyte % 9.3 5.0 - 12.0 % 04/11/2025 4:02 AM [facility] Eosinophil % 4.1 0.3 - 6.2 % 04/11/2025 4:[facility] Basophil % 0.4 0.0 - 1.5 % 04/11/2025 4:02 AM [facility] Immature Grans % 0.4 0.0 - 0.5 % 04/11/2025 4:02 AM [facility] Neutrophils, Absolute 4.69 1.70 - 7.00 10*3/mm3 04/11/2025 4:02 AM EDT [facility] Lymphocytes, Absolute 2.07 0.70 - 3.10 10*3/mm3 04/11/2025 4:02 AM EDT [facility] Monocytes, Absolute 0.73 0.10 - 0.90 10*3/mm3 04/11/2025 4:02 AM EDT [facility] Eosinophils, Absolute 0.32 0.00 - 0.40 10*3/mm3 04/11/2025 4:02 AM EDT [facility] Basophils, Absolute 0.03 0.00 - 0.20 10*3/mm3 04/11/2025 4:02 AM EDT [facility] Immature Grans, Absolute 0.03 0.00 - 0.05 10*3/mm3 04/11/2025 4:02 AM EDT [facility] nRBC 0.0 0.0 - 0.2 /100 WBC 04/11/2025 4:02 AM EDT [facility] Blood Venipuncture / Unknown 04/11/2025 3:40 AM EDT 04/11/2025 3:59 AM EDT us Sushil Dean Jr., MD LAB BLOOD ORDERABLES Fi nal Result [facility]
[address] [place] [address], * (ABNORMAL) Comprehensive Metabolic Panel (04/11/2025 3:40 AM EDT) [facility] Signature Glucose 108(H) 65 - 99 mg/dL 04/11/2025 4:19 AM EDT [facility] BUN 12.5 6.0 - 20.0 mg/dL 04/11/2025 4:19 AM EDT [facility] Creatinine 0.68(L) 0.76 - 1.27 mg/dL 04/11/2025 4:19 AM [facility] Sodium 140 136 - 145 mmol/L 04/11/2025 4:19 AM [facility] Potassium 3.8 3.5 - 5.2 mmol/L 04/11/2025 4:19 AM [facility] Chloride 105 98 - 107 mmol/L 04/11/2025 4:19 AM [facility] CO2 28.2 22.0 - 29.0 mmol/L 04/11/2025 4:19 AM [facility] Calcium 8.2(L) 8.6 - 10.5 mg/dL 04/11/2025 4:19 AM [facility] Total Protein 6.1 6.0 - 8.5 g/dL 04/11/2025 4:19 AM [facility] Albumin 3.1(L) 3.5 - 5.2 g/dL 04/11/2025 4:19 AM [facility] ALT (SGPT) 52(H) 1 - 41 U/L 04/11/2025 4:19 AM [facility] AST (SGOT) 40 1 - 40 U/L 04/11/2025 4:19 AM [facility] Alkaline Phosphatase 99 39 - 117 U/L 04/11/2025 4:19 AM [facility] Total Bilirubin 0.2 0.0 - 1.2 mg/dL 04/11/2025 4:19 AM [facility] Globulin 3.0 gm/dL 04/11/2025 4:19 AM [facility] Comment:Calculated Result A/G Ratio 1.0 g/dL 04/11/2025 4:19 AM [facility] BUN/Creatinine Ratio 18.4 7.0 - 25.0 04/11/2025 4:19 AM [facility] Anion Gap 6.8 5.0 - 15.0 mmol/L 04/11/2025 4:19 AM [facility] eGFR 117.5 >60.0 mL/min/1.7 3 04/11/2025 4:19 AM EDT [facility] Blood Venipuncture / Unknown 04/11/2025 3:40 AM EDT 04/11/2025 3:56 AM EDT [facility] - 04/11/2025 4:19 AM [...] include race as a factor Rosario Hill DIRECTOR OF TRAUMA LAB BLOOD ORDERABLES Final Result [facility]
[address] [place] [address], * (ABNORMAL) CBC Auto Differential (04/10/2025 3:46 AM EDT) WBC 9.60 3.40 - 10.80 10*3/mm3 04/10/2025 3:56 AM EDT [facility] RBC 4.67 4.14 - 5.80 10*6/mm3 04/10/2025 3:56 AM EDT [facility] Hemoglobin 12.9(L) 13.0 - 17.7 g/dL 04/10/2025 3:56 AM EDT [facility] Hematocrit 40.1 37.5 - 51.0 % 04/10/2025 3:56 AM EDT [facility] MCV 85.9 79.0 - 97.0 fL 04/10/2025 3:56 AM EDT [facility] MCH 27.6 26.6 - 33.0 pg 04/10/2025 3:56 AM EDT [facility] MCHC 32.2 31.5 - 35.7 g/dL 04/10/2025 3:56 AM [facility] RDW 12.9 12.3 - 15.4 % 04/10/2025 3:56 AM [facility] RDW-SD 40.5 37.0 - 54.0 fl 04/10/2025 3:56 AM [facility] MPV 9.5 6.0 - 12.0 fL 04/10/2025 3:56 AM EDT [facility] Platelets 227 140 - 450 10*3/mm3 04/10/2025 3:56 AM [facility] Neutrophil % 59.1 42.7 - 76.0 % 04/10/2025 3:56 AM [facility] Lymphocyte % 29.0 19.6 - 45.3 % 04/10/2025 3:56 AM [facility] Monocyte % 8.1 5.0 - 12.0 % 04/10/2025 3:56 AM [facility] Eosinophil % 3.2 0.3 - 6.2 % 04/10/2025 3:56 AM [facility] Basophil % 0.4 0.0 - 1.5 % 04/10/2025 3:56 AM [facility] Immature Grans % 0.2 0.0 - 0.5 % 04/10/2025 3:56 AM [facility] Neutrophils, Absolute 5.67 1.70 - 7.00 10*3/mm3 04/10/2025 3:56 AM [facility] Lymphocytes, Absolute 2.78 0.70 - 3.10 10*3/mm3 04/10/2025 3:56 AM [facility] Monocytes, Absolute 0.78 0.10 - 0.90 10*3/mm3 04/10/2025 3:56 AM [facility] Eosinophils, Absolute 0.31 0.00 - 0.40 10*3/mm3 04/10/2025 3:56 AM [facility] Basophils, Absolute 0.04 0.00 - 0.20 10*3/mm3 04/10/2025 3:56 AM EDT [facility] Immature Grans, Absolute 0.02 0.00 - 0.05 10*3/mm3 04/10/2025 3:56 AM EDT [facility] nRBC 0.0 0.0 - 0.2 /100 WBC 04/10/2025 3:56 AM EDT [facility] Blood Venipuncture / Unknown 04/10/2025 3:46 AM EDT 04/10/2025 3:53 AM EDT us Jason Álvarez DO LAB BLOOD ORDERABLES Final Resul t [facility]
[address] [place] [address], * (ABNORMAL) Basic Metabolic Panel (04/10/2025 3:46 AM EDT) Glucose 125(H) 65 - 99 mg/dL 04/10/2025 4:20 AM EDT [facility] BUN 15.9 6.0 - 20.0 mg/dL 04/10/2025 4:20 AM EDT [facility] Creatinine 0.77 0.76 - 1.27 mg/dL 04/10/2025 4:20 AM EDT [facility] Sodium 137 136 - 145 mmol/L 04/10/2025 4:20 AM EDT [facility] Potassium 3.9 3.5 - 5.2 mmol/L 04/10/2025 4:20 AM EDT [facility] Chloride 102 98 - 107 mmol/L 04/10/2025 4:20 AM EDT [facility] CO2 26.9 22.0 - 29.0 mmol/L 04/10/2025 4:20 AM EDT [facility] Calcium 7.9(L) 8.6 - 10.5 mg/dL 04/10/2025 4:20 AM EDT [facility] BUN/Creatinine Ratio 20.6 7.0 - 25.0 04/10/2025 4:20 AM EDT [facility] Anion Gap 8.1 5.0 - 15.0 mmol/L 04/10/2025 4:20 AM EDT [facility] eGFR 113.2 >60.0 mL/min/1.7 3 04/10/2025 4:20 AM EDT [facility] Blood Venipuncture / Unknown 04/10/2025 3:46 AM EDT 04/10/2025 3:52 AM EDT Narrative [facility] - 04/10/2025 4:20 AM EDT [...] LAB BLOOD ORDERABLES Final Resul t [facility]
[address] [place] [address], * Heparin Anti-Xa (04/10/2025 3:46 AM EDT) Heparin Anti-Xa (UFH) 0.35 0.30 - 0.70 IU/ml 04/10/2025 4:23 AM EDT [facility] Blood Venipuncture / Unknown 04/10/2025 3:46 AM EDT 04/10/2025 3:53 AM EDT Larisa Hamilton [facility] LAB BLOOD ORDERABLES Final R esult [facility]
[address] [place] [address], * Heparin Anti-Xa (04/09/2025 10:05 AM EDT) Pathologist [facility] Heparin Anti-Xa (UFH) 0.36 0.30 - 0.70 IU/ml 04/09/2025 11:12 AM EDT [facility] Blood Venipuncture / Unknown 04/09/2025 10:05 AM EDT 04/09/2025 10:47 AM EDT Larisa Hamilton [facility] LAB BLOOD ORDERABLES Final R esult [facility]
[address] [place] [address], * (ABNORMAL) CBC Auto Differential (04/09/2025 4:18 AM EDT) Pathologist [facility] WBC 11.00(H) 3.40 - 10.80 10*3/mm3 04/09/2025 4:50 AM EDT [facility] RBC 4.70 4.14 - 5.80 10*6/mm3 04/09/2025 4:50 AM EDT [facility] Hemoglobin 13.0 13.0 - 17.7 g/dL 04/09/2025 4:50 AM EDT [facility] Hematocrit 40.4 37.5 - 51.0 % 04/09/2025 4:50 AM EDT [facility] MCV 86.0 79.0 - 97.0 fL 04/09/2025 4:50 AM EDT [facility] MCH 27.7 26.6 - 33.0 pg 04/09/2025 4:50 AM EDT [facility] MCHC 32.2 31.5 - 35.7 g/dL 04/09/2025 4:50 AM EDT [facility] RDW 12.8 12.3 - 15.4 % 04/09/2025 4:50 AM [facility] RDW-SD 39.9 37.0 - 54.0 fl 04/09/2025 4:50 AM [facility] MPV 10.0 6.0 - 12.0 fL 04/09/2025 4:50 AM [facility] Platelets 211 140 - 450 10*3/mm3 04/09/2025 4:50 AM [facility] Neutrophil % 74.8 42.7 - 76.0 % 04/09/2025 4:50 AM [facility] Lymphocyte % 15.4(L) 19.6 - 45.3 % 04/09/2025 4:50 AM [facility] Monocyte % 8.5 5.0 - 12.0 % 04/09/2025 4:50 AM [facility] Eosinophil % 0.6 0.3 - 6.2 % 04/09/2025 4:50 AM [facility] Basophil % 0.4 0.0 - 1.5 % 04/09/2025 4:50 AM [facility] Immature Grans % 0.3 0.0 - 0.5 % 04/09/2025 4:50 AM [facility] Neutrophils, Absolute 8.23(H) 1.70 - 7.00 10*3/mm3 04/09/2025 4:50 AM [facility] Lymphocytes, Absolute 1.69 0.70 - 3.10 10*3/mm3 04/09/2025 4:50 AM [facility] Monocytes, Absolute 0.94(H) 0.10 - 0.90 10*3/mm3 04/09/2025 4:50 AM [facility] Eosinophils, Absolute 0.07 0.00 - 0.40 10*3/mm3 04/09/2025 4:50 AM [facility] Basophils, Absolute 0.04 0.00 - 0.20 10*3/mm3 04/09/2025 4:50 AM [facility] Immature Grans, Absolute 0.03 0.00 - 0.05 10*3/mm3 04/09/2025 4:50 AM EDT [facility] nRBC 0.0 0.0 - 0.2 /100 WBC 04/09/2025 4:50 AM EDT [facility] Blood Venipuncture / Unknown 04/09/2025 4:18 AM EDT 04/09/2025 4:31 AM EDT Sushil Dean Jr., MD LAB BLOOD ORDERABLES Fi nal Result [facility]
[address] [place] [address], * Heparin Anti-Xa (04/09/2025 4:18 AM EDT) Heparin Anti-Xa (UFH) 0.41 0.30 - 0.70 IU/ml 04/09/2025 4:53 AM EDT [facility] Blood Venipuncture / Unknown 04/09/2025 4:18 AM EDT 04/09/2025 4:31 AM EDT Una LundbergD LAB BLOOD ORDERABLES Final R esult [facility]
[address] [place] [address], * (ABNORMAL) Basic Metabolic Panel (04/09/2025 4:18 AM EDT) Glucose 147(H) 65 - 99 mg/dL 04/09/2025 5:33 AM EDT [facility] BUN 23.0(H) 6.0 - 20.0 mg/dL 04/09/2025 5:33 AM EDT [facility] Creatinine 1.15 0.76 - 1.27 mg/dL 04/09/2025 5:33 AM EDT [facility] Sodium 135(L) 136 - 145 mmol/L 04/09/2025 5:33 AM EDT [facility] Potassium 4.2 3.5 - 5.2 mmol/L 04/09/2025 5:33 AM EDT [facility] Chloride 100 98 - 107 mmol/L 04/09/2025 5:33 AM EDT [facility] CO2 26.0 22.0 - 29.0 mmol/L 04/09/2025 5:33 AM EDT [facility] Calcium 8.2(L) 8.6 - 10.5 mg/dL 04/09/2025 5:33 AM EDT [facility] BUN/Creatinine Ratio 20.0 7.0 - 25.0 04/09/2025 5:33 AM EDT [facility] Anion Gap 9.0 5.0 - 15.0 mmol/L 04/09/2025 5:33 AM EDT [facility] eGFR 80.5 >60.0 mL/min/1.7 3 04/09/2025 5:33 AM EDT [facility] Blood Venipuncture / Unknown 04/09/2025 4:18 AM EDT 04/09/2025 4:29 AM EDT [facility] - 04/09/2025 5:33 AM [...] LAB BLOOD ORDERABLES Fi nal Result [facility]
[address] [place] [address], * Wound Culture - Swab, Leg, Right (04/08/2025 3:40 PM EDT) Wound Culture No growth at 3 days ALIZA 04/11/2025 10:40 AM EDT [facility] Gram Stain Few (2+) WBCs seen 04/11/2025 10:40 AM EDT [facility] Gram Stain No organisms seen 04/11/2025 10:40 AM EDT [facility] Swab Structure of right lower limb / Unknown 04/08/2025 3:40 PM EDT 04/08/2025 8:05 PM EDT Sushil Dean Jr., MD MICROBIOLOGY - GENERAL ORDERABLES Final Result Performing Organization Address City/[facility]/ZIP Co de Phone Number [facility]
[address] [place] [address], [facility]
[address] [place] [address], * Anaerobic Culture - Swab, Leg, Right (04/08/2025 3:40 PM EDT) Pathologist [facility] Anaerobic Culture No anaerobes isolated at 5 days ALIZA 04/13/2025 7:24 AM EDT [facility] Swab Structure of right lower limb / Unknown 04/08/2025 3:40 PM EDT 04/08/2025 8:05 PM EDT Sushil Dean Jr., MD MICROBIOLOGY - GENERAL ORDERABLES Final Result [facility]
[address] [place] [address], * Scan Slide (04/08/2025 8:41 AM EDT) RBC Morphology Normal Normal 04/08/2025 11:02 AM EDT [facility] WBC Morphology Normal Normal 04/08/2025 11:02 AM EDT [facility] Platelet Estimate Adequate Normal 04/08/2025 11:02 AM EDT [facility] Clumped Platelets Present None Seen 04/08/2025 11:02 AM EDT [facility] Blood Venipuncture / Unknown 04/08/2025 8:41 AM EDT 04/08/2025 9:10 AM EDT Una Minda PharmD LAB BLOOD ORDERABLES Final R esult [facility]
[address] [place] [address], * (ABNORMAL) CBC Auto Differential (04/08/2025 8:41 AM EDT) WBC 10.07 3.40 - 10.80 10*3/mm3 04/08/2025 11:02 AM EDT [facility] RBC 5.01 4.14 - 5.80 10*6/mm3 04/08/2025 11:02 AM EDT [facility] Hemoglobin 14.0 13.0 - 17.7 g/dL 04/08/2025 11:02 AM EDT [facility] Hematocrit 42.7 37.5 - 51.0 % 04/08/2025 11:02 AM EDT [facility] MCV 85.2 79.0 - 97.0 fL 04/08/2025 11:02 AM EDT [facility] MCH 27.9 26.6 - 33.0 pg 04/08/2025 11:02 AM EDT [facility] MCHC 32.8 31.5 - 35.7 g/dL 04/08/2025 11:02 AM EDT [facility] RDW 12.6 12.3 - 15.4 % 04/08/2025 11:02 AM EDT [facility] RDW-SD 38.9 37.0 - 54.0 fl 04/08/2025 11:02 AM [facility] MPV 11.0 6.0 - 12.0 fL 04/08/2025 11:02 AM [facility] Platelets 118(L) 140 - 450 10*3/mm3 04/08/2025 11:02 AM [facility] Neutrophil % 85.1(H) 42.7 - 76.0 % 04/08/2025 11:02 AM [facility] Lymphocyte % 9.3(L) 19.6 - 45.3 % 04/08/2025 11:02 AM [facility] Monocyte % 4.6(L) 5.0 - 12.0 % 04/08/2025 11:02 AM [facility] Eosinophil % 0.3 0.3 - 6.2 % 04/08/2025 11:02 AM [facility] Basophil % 0.2 0.0 - 1.5 % 04/08/2025 11:02 AM [facility] Immature Grans % 0.5 0.0 - 0.5 % 04/08/2025 11:02 AM [facility] Neutrophils, Absolute 8.57(H) 1.70 - 7.00 10*3/mm3 04/08/2025 11:02 AM [facility] Lymphocytes, Absolute 0.94 0.70 - 3.10 10*3/mm3 04/08/2025 11:02 AM [facility] Monocytes, Absolute 0.46 0.10 - 0.90 10*3/mm3 04/08/2025 11:02 AM [facility] Eosinophils, Absolute 0.03 0.00 - 0.40 10*3/mm3 04/08/2025 11:02 AM [facility] Basophils, Absolute 0.02 0.00 - 0.20 10*3/mm3 04/08/2025 11:02 AM [facility] Immature Grans, Absolute 0.05 0.00 - 0.05 10*3/mm3 04/08/2025 11:02 AM EDT [facility] nRBC 0.0 0.0 - 0.2 /100 WBC 04/08/2025 11:02 AM EDT [facility] Blood Venipuncture / Unknown 04/08/2025 8:41 AM EDT 04/08/2025 9:10 AM EDT Una Perla PharmD LAB BLOOD ORDERABLES Final R esult [facility]
[address] [place] [address], * (ABNORMAL) Basic Metabolic Panel (04/08/2025 8:41 AM EDT) Glucose 125(H) 65 - 99 mg/dL 04/08/2025 9:51 AM EDT [facility] BUN 13.2 6.0 - 20.0 mg/dL 04/08/2025 9:51 AM EDT [facility] Creatinine 0.69(L) 0.76 - 1.27 mg/dL 04/08/2025 9:51 AM EDT [facility] Sodium 136 136 - 145 mmol/L 04/08/2025 9:51 AM EDT [facility] Potassium 4.6 3.5 - 5.2 mmol/L 04/08/2025 9:51 AM EDT [facility] Chloride 102 98 - 107 mmol/L 04/08/2025 9:51 AM EDT [facility] CO2 23.5 22.0 - 29.0 mmol/L 04/08/2025 9:51 AM EDT [facility] Calcium 8.4(L) 8.6 - 10.5 mg/dL 04/08/2025 9:51 AM EDT [facility] BUN/Creatinine Ratio 19.1 7.0 - 25.0 04/08/2025 9:51 AM EDT [facility] Anion Gap 10.5 5.0 - 15.0 mmol/L 04/08/2025 9:51 AM EDT [facility] eGFR 117.0 >60.0 mL/min/1.7 3 04/08/2025 9:51 AM EDT [facility] Blood Venipuncture / Unknown 04/08/2025 8:41 AM EDT 04/08/2025 9:09 AM EDT Narrative [facility] - 04/08/2025 9:51 AM EDT [...] ORDERABLES Fi nal Result Performing Organization Address City/[facility]/ZIP Co de Phone Number [facility]
[address] [place] [address], * Heparin Anti-Xa (04/08/2025 8:41 AM EDT) Heparin Anti-Xa (UFH) 0.33 0.30 - 0.70 IU/ml 04/08/2025 9:40 AM EDT [facility] Blood Venipuncture / Unknown 04/08/2025 8:41 AM EDT 04/08/2025 9:10 AM EDT us Sushil Dean Jr., MD LAB BLOOD ORDERABLES Fi nal Result [facility]
[address] [place] [address], * FL C Arm During Surgery (04/07/2025 9:32 PM EDT) Narrative SYSTEMGENERATED, DOCUMENTATION - 04/07/2025 9:38 PM EDT This procedure was auto-finalized with no dictation required. us Sushil Dean Jr., MD IMG FLUOROSCOPY ORDERAB LES Final Result * Wound Culture - Swab, Leg, Right (04/07/2025 9:14 PM EDT) Wound Culture No growth at 3 days ALIZA 04/11/2025 10:40 AM EDT [facility] Gram Stain Occasional WBCs seen 04/11/2025 10:40 AM EDT [facility] Gram Stain No organisms seen 04/11/2025 10:40 AM EDT [facility] Swab Structure of right lower limb / Unknown Collection / Unknown 04/07/2025 9:14 PM EDT 04/08/2025 4:36 AM EDT us Sushil Dean Jr., MD MICROBIOLOGY - GENERAL ORDERABLES Final Result Performing Organization Address City/[facility]/ZIP Co de Phone Number [facility]
[address] [place] [address], [facility]
[address] [place] [address], * Anaerobic Culture - Swab, Leg, Right (04/07/2025 9:14 PM EDT) Anaerobic Culture No anaerobes isolated at 5 days ALIZA 04/13/2025 7:21 AM EDT [facility] Swab Structure of right lower limb / Unknown Collection / Unknown 04/07/2025 9:14 PM EDT 04/08/2025 4:36 AM EDT us Sushil Dean Jr., MD MICROBIOLOGY - GENERAL ORDERABLES Final Result [facility]
[address] [place] [address], * Anaerobic Culture - Tissue, Leg (04/07/2025 9:13 PM EDT) Pathologist [facility] Anaerobic Culture No anaerobes isolated at 5 days ALIZA 04/13/2025 7:21 AM EDT [facility] Tissue Lower limb structure / Unknown Collection / Unknown 04/07/2025 9:13 PM EDT 04/08/2025 4:54 AM EDT Jason Álvarez DO MICROBIOLOGY - GENERAL ORDERABLE S Final Result [facility]
[address] [place] [address], * Tissue / Bone Culture - Tissue, Leg, Right (04/07/2025 9:13 PM EDT) [facility] Tissue Culture No growth at 3 days ALIZA 04/11/2025 10:36 AM EDT [facility] Gram Stain Rare (1+) WBCs seen 04/11/2025 10:36 AM EDT [facility] Gram Stain No organisms seen 04/11/2025 10:36 AM EDT [facility] Tissue Structure of right lower limb / Unknown 04/07/2025 9:13 PM EDT 04/08/2025 4:54 AM EDT Sushil Dean Jr., MD MICROBIOLOGY - GENERAL ORDERABLES Final Result [facility]
[address] [place] [address], [facility]
[address] [place] [address], * (ABNORMAL) Wound Culture - Swab, Leg, Right (04/07/2025 9:07 PM EDT) Pathologist [facility] Wound Culture Light growth (2+) Staphylococcus aureus, MRSA(A) ALIZA 04/10/2025 10:38 AM EDT [facility] Comment: Methicillin resistant Staphylococcus aureus, Patient may be an isolation risk. Gram Stain Few (2+) WBCs seen 04/10/2025 10:38 AM EDT [facility] Gram Stain No organisms seen 10:38 AM EDT [facility] Swab [...] MD MICROBIOLOGY - GENERAL ORDERABLES Final Result [facility]
[address] [place] [address], [place] [phone] [facility]
[address] [place] [address], [place] [phone] * Anaerobic Culture - Swab, Leg, Right (04/07/2025 9:07 PM EDT) Anaerobic Culture No anaerobes isolated at 5 days ALIZA 04/13/2025 7:21 AM EDT [facility] Swab Structure of right lower limb / Unknown Collection / Unknown 04/07/2025 9:07 PM EDT 04/08/2025 4:36 AM EDT us Sushil Dean Jr., MD MICROBIOLOGY - GENERAL ORDERABLES Final Result [facility]
[address] [place] [address], * Heparin Anti-Xa (04/07/2025 9:10 AM EDT) [facility] Heparin Anti-Xa (UFH) 0.30 0.30 - 0.70 IU/ml 04/07/2025 10:12 AM EDT [facility] Blood Venipuncture / Unknown 04/07/2025 9:10 AM EDT 04/07/2025 9:38 AM EDT Una Perla PharmD LAB BLOOD ORDERABLES Final R esult [facility]
[address] [place] [address], * (ABNORMAL) CBC Auto Differential (04/07/2025 9:10 AM EDT) [facility] WBC 8.63 3.40 - 10.80 10*3/mm3 04/07/2025 9:50 AM EDT [facility] RBC 5.23 4.14 - 5.80 10*6/mm3 04/07/2025 9:50 AM EDT [facility] Hemoglobin 14.7 13.0 - 17.7 g/dL 04/07/2025 9:50 AM EDT [facility] Hematocrit 44.8 37.5 - 51.0 % 04/07/2025 9:50 AM EDT [facility] MCV 85.7 79.0 - 97.0 fL 04/07/2025 9:50 AM EDT [facility] MCH 28.1 26.6 - 33.0 pg 04/07/2025 9:50 AM EDT [facility] MCHC 32.8 31.5 - 35.7 g/dL 04/07/2025 9:50 AM EDT [facility] RDW 12.8 12.3 - 15.4 % 04/07/2025 9:50 AM [facility] RDW-SD 39.9 37.0 - 54.0 fl 04/07/2025 9:50 AM [facility] MPV 10.8 6.0 - 12.0 fL 04/07/2025 9:50 AM [facility] Platelets 149 140 - 450 10*3/mm3 04/07/2025 9:50 AM [facility] Neutrophil % 66.7 42.7 - 76.0 % 04/07/2025 9:50 AM [facility] Lymphocyte % 20.5 19.6 - 45.3 % 04/07/2025 9:50 AM [facility] Monocyte % 9.8 5.0 - 12.0 % 04/07/2025 9:50 AM [facility] Eosinophil % 2.1 0.3 - 6.2 % 04/07/2025 9:50 AM [facility] Basophil % 0.3 0.0 - 1.5 % 04/07/2025 9:50 AM [facility] Immature Grans % 0.6(H) 0.0 - 0.5 % 04/07/2025 9:50 AM [facility] Neutrophils, Absolute 5.75 1.70 - 7.00 10*3/mm3 04/07/2025 9:50 AM [facility] Lymphocytes, Absolute 1.77 0.70 - 3.10 10*3/mm3 04/07/2025 9:50 AM [facility] Monocytes, Absolute 0.85 0.10 - 0.90 10*3/mm3 04/07/2025 9:50 AM [facility] Eosinophils, Absolute 0.18 0.00 - 0.40 10*3/mm3 04/07/2025 9:50 AM [facility] Basophils, Absolute 0.03 0.00 - 0.20 10*3/mm3 04/07/2025 9:50 AM [facility] Immature Grans, Absolute 0.05 0.00 - 0.05 10*3/mm3 04/07/2025 9:50 AM EDT [facility] nRBC 0.0 0.0 - 0.2 /100 WBC 04/07/2025 9:50 AM EDT [facility] Blood Venipuncture / Unknown 04/07/2025 9:10 AM EDT 04/07/2025 9:38 AM EDT Jasonalfonso Álavrez LAB BLOOD ORDERABLES Final Resul t [facility]
[address] [place] [address], * (ABNORMAL) Basic Metabolic Panel (04/07/2025 9:10 AM EDT) Glucose 112(H) 65 - 99 mg/dL 04/07/2025 10:19 AM EDT [facility] BUN 13.1 6.0 - 20.0 mg/dL 04/07/2025 10:19 AM EDT [facility] Creatinine 0.77 0.76 - 1.27 mg/dL 04/07/2025 10:19 AM EDT [facility] Sodium 139 136 - 145 mmol/L 04/07/2025 10:19 AM EDT [facility] Potassium 4.2 3.5 - 5.2 mmol/L 04/07/2025 10:19 AM EDT [facility] Comment:Specimen hemolyzed. Result may be falsely elevated. Chloride 105 98 - 107 mmol/L 04/07/2025 10:19 AM EDT [facility] CO2 24.8 22.0 - 29.0 mmol/L 04/07/2025 10:19 AM EDT [facility] Calcium 8.6 8.6 - 10.5 mg/dL 04/07/2025 10:19 AM EDT [facility] BUN/Creatinine Ratio 17.0 7.0 - 25.0 04/07/2025 10:19 AM EDT [facility] Anion Gap 9.2 5.0 - 15.0 mmol/L 04/07/2025 10:19 AM EDT [facility] eGFR 113.2 >60.0 mL/min/1.7 3 04/07/2025 10:19 AM EDT [facility] Blood Venipuncture / Unknown 04/07/2025 9:10 AM EDT 04/07/2025 9:38 AM EDT Narrative [facility] - 04/07/2025 10:19 AM EDT [...] LAB BLOOD ORDERABLES Final Resul t [facility]
[address] [place] [address], * MRI Tibia Fibula Right With & [...] [place] 04/07/2025 9:58 AM EDT Workstation ID: [id number] Narrative 04/07/2025 9:58 AM EDT MRI TIBIA [...] [place] 04/07/2025 9:58 AM EDT Workstation ID: [id number] Sushil Dean Jr., MD IM MRI ORDERABLES Mary Beth l Result * Heparin Anti-Xa (04/07/2025 1:42 AM EDT) [facility] Heparin Anti-Xa (UFH) 0.38 0.30 - 0.70 IU/ml 04/07/2025 2:14 AM EDT [facility] Blood Venipuncture / Unknown 04/07/2025 1:42 AM EDT 04/07/2025 1:54 AM EDT Chelsie Turpin [facility] LAB BLOOD ORDERABLES Final R esult [facility]
[address] [place] [address], * Heparin Anti-Xa (04/06/2025 7:16 PM EDT) [facility] Heparin Anti-Xa (UFH) 0.33 0.30 - 0.70 IU/ml 04/06/2025 7:50 PM EDT [facility] Blood Venipuncture / Unknown 04/06/2025 7:16 PM EDT 04/06/2025 7:35 PM EDT Cherri Beatty RP LAB BLOOD ORDERABLES Final Res ult Performing Organization Address City/[facility]/ZIP Co de Phone Number [facility]
[address] [place] [address], * Potassium (04/06/2025 7:16 PM EDT) Potassium 4.0 3.5 - 5.2 mmol/L 04/06/2025 7:53 PM EDT [facility] Blood Venipuncture / Unknown 04/06/2025 7:16 PM EDT 04/06/2025 7:35 PM EDT Jason Álvarez DO LAB BLOOD ORDERABLES Final Resul t Performing Organization Address [facility] de Phone Number [facility]
[address] [place] [address], * (ABNORMAL) Heparin Anti-Xa (04/06/2025 12:36 PM EDT) Heparin Anti-Xa (UFH) 0.24(L) 0.30 - 0.70 IU/ml 04/06/2025 1:23 PM EDT [facility] Blood Venipuncture / Unknown 04/06/2025 12:36 PM EDT 04/06/2025 1:07 PM EDT Una LundbergD LAB BLOOD ORDERABLES Final R esult Performing Organization Address [facility] Co de Phone Number [facility]
[address] [place] [address], * (ABNORMAL) Heparin Anti-Xa (04/06/2025 3:42 AM EDT) Heparin Anti-Xa (UFH) 0.25(L) 0.30 - 0.70 IU/ml 04/06/2025 5:30 AM EDT [facility] Blood Venipuncture / Unknown 04/06/2025 3:42 AM EDT 04/06/2025 4:59 AM EDT Chelsie Turpin [facility] LAB BLOOD ORDERABLES Final R esult [facility]
[address] [place] [address], * (ABNORMAL) Basic Metabolic Panel (04/06/2025 3:42 AM EDT) Pathologist [facility] Glucose 94 65 - 99 mg/dL 04/06/2025 5:59 AM EDT [facility] BUN 12.8 6.0 - 20.0 mg/dL 04/06/2025 5:59 AM EDT [facility] Creatinine 0.80 0.76 - 1.27 mg/dL 04/06/2025 5:59 AM EDT [facility] Sodium 138 136 - 145 mmol/L 04/06/2025 5:59 AM EDT [facility] Potassium 3.6 3.5 - 5.2 mmol/L 04/06/2025 5:59 AM EDT [facility] Chloride 103 98 - 107 mmol/L 04/06/2025 5:59 AM EDT [facility] CO2 24.2 22.0 - 29.0 mmol/L 04/06/2025 5:59 AM EDT [facility] Calcium 8.0(L) 8.6 - 10.5 mg/dL 04/06/2025 5:59 AM EDT [facility] BUN/Creatinine Ratio 16.0 7.0 - 25.0 04/06/2025 5:59 AM EDT [facility] Anion Gap 10.8 5.0 - 15.0 mmol/L 04/06/2025 5:59 AM EDT [facility] eGFR 111.9 >60.0 mL/min/1.7 3 04/06/2025 5:59 AM EDT [facility] Blood Venipuncture / Unknown 04/06/2025 3:42 AM EDT 04/06/2025 5:20 AM EDT [facility] - 04/06/2025 5:59 AM [...] LAB BLOOD ORDERABLES Final Resul t [facility]
[address] [place] [address], * (ABNORMAL) CBC Auto Differential (04/06/2025 3:41 AM EDT) WBC 10.86(H) 3.40 - 10.80 10*3/mm3 04/06/2025 5:04 AM EDT [facility] RBC 5.08 4.14 - 5.80 10*6/mm3 04/06/2025 5:04 AM EDT [facility] Hemoglobin 13.9 13.0 - 17.7 g/dL 04/06/2025 5:04 AM EDT [facility] Hematocrit 43.7 37.5 - 51.0 % 04/06/2025 5:04 AM EDT [facility] MCV 86.0 79.0 - 97.0 fL 04/06/2025 5:04 AM [facility] MCH 27.4 26.6 - 33.0 pg 04/06/2025 5:04 AM [facility] MCHC 31.8 31.5 - 35.7 g/dL 04/06/2025 5:04 AM [facility] RDW 12.8 12.3 - 15.4 % 04/06/2025 5:04 AM [facility] RDW-SD 40.0 37.0 - 54.0 fl 04/06/2025 5:04 AM [facility] MPV 11.7 6.0 - 12.0 fL 04/06/2025 5:04 AM [facility] Platelets 115(L) 140 - 450 10*3/mm3 04/06/2025 5:04 AM [facility] Neutrophil % 65.3 42.7 - 76.0 % 04/06/2025 5:04 AM [facility] Lymphocyte % 20.5 19.6 - 45.3 % 04/06/2025 5:04 AM [facility] Monocyte % 11.8 5.0 - 12.0 % 04/06/2025 5:04 AM [facility] Eosinophil % 1.8 0.3 - 6.2 % 04/06/2025 5:04 AM [facility] Basophil % 0.3 0.0 - 1.5 % 04/06/2025 5:04 AM [facility] Immature Grans % 0.3 0.0 - 0.5 % 04/06/2025 5:04 AM [facility] Neutrophils, Absolute 7.09(H) 1.70 - 7.00 10*3/mm3 04/06/2025 5:04 AM [facility] Lymphocytes, Absolute 2.23 0.70 - 3.10 10*3/mm3 04/06/2025 5:04 AM [facility] Monocytes, Absolute 1.28(H) 0.10 - 0.90 10*3/mm3 04/06/2025 5:04 AM EDT [facility] Eosinophils, Absolute 0.20 0.00 - 0.40 10*3/mm3 04/06/2025 5:04 AM EDT [facility] Basophils, Absolute 0.03 0.00 - 0.20 10*3/mm3 04/06/2025 5:04 AM EDT [facility] Immature Grans, Absolute 0.03 0.00 - 0.05 10*3/mm3 04/06/2025 5:04 AM EDT [facility] nRBC 0.0 0.0 - 0.2 /100 WBC 04/06/2025 5:04 AM EDT [facility] Blood Venipuncture / Unknown 04/06/2025 3:41 AM EDT 04/06/2025 4:58 AM EDT Jason Álvarez DO LAB BLOOD ORDERABLES Final Resul t Performing Organization Address City/[facility]/ZIP Co de Phone Number [facility]
[address] [place] [address], [place] [phone] * Heparin Anti-Xa (04/05/2025 8:43 PM EDT) [facility] Heparin Anti-Xa (UFH) 0.38 0.30 - 0.70 IU/ml 04/05/2025 9:09 PM EDT [facility] Blood Venipuncture / Unknown 04/05/2025 8:43 PM EDT 04/05/2025 8:55 PM EDT us Cherri Beatty [facility] LAB BLOOD ORDERABLES Final Res ult Performing Organization Address City/[facility]/ZIP Co de Phone Number [facility]
[address] [place] [address], [place] [phone] * CK (04/05/2025 12:15 PM EDT) Pathologist [facility] Creatine Kinase 140 20 - 200 U/L 04/05/2025 1:31 PM EDT [facility] Blood Venipuncture / Unknown 04/05/2025 12:15 PM EDT 04/05/2025 1:03 PM EDT Carlton Mead MD LAB BLOOD ORDERABLES Final R esult Performing Organization Address City/[facility]/ZIP Co de Phone Number [facility]
[address] [place] [address], * (ABNORMAL) Heparin Anti-Xa (04/05/2025 12:15 PM EDT) Heparin Anti-Xa (UFH) 0.17(L) 0.30 - 0.70 IU/ml 04/05/2025 1:21 PM EDT [facility] Blood Venipuncture / Unknown 04/05/2025 12:15 PM EDT 04/05/2025 1:04 PM EDT Una Perla PharmD LAB BLOOD ORDERABLES Final R esult [facility]
[address] [place] [address], * (ABNORMAL) aPTT (04/05/2025 3:54 AM EDT) PTT 35.3(L) 60.0 - 90.0 seconds 04/05/2025 4:31 AM EDT [facility] Blood Venipuncture / Unknown 04/05/2025 3:54 AM EDT 04/05/2025 4:15 AM EDT Narrative [facility] - 04/05/2025 4:31 AM EDT PTT = The equivalent PTT values for the therapeutic range of heparin levels at 0.3 to 0.5 U/ml are 60 to 70 seconds. Una Perla PharmD LAB BLOOD ORDERABLES Final R esult [facility]
[address] [place] [address], * Heparin Anti-Xa (04/05/2025 3:54 AM EDT) Pathologist [facility] Heparin Anti-Xa (UFH) 0.30 0.30 - 0.70 IU/ml 04/05/2025 4:32 AM EDT [facility] Blood Venipuncture / Unknown 04/05/2025 3:54 AM EDT 04/05/2025 4:15 AM EDT Una OpenSkyD LAB BLOOD ORDERABLES Final R esult Performing Organization Address City/[facility]/ZIP Co de Phone Number [facility]
[address] [place] [address], * (ABNORMAL) CBC Auto Differential (04/05/2025 3:54 AM EDT) Pathologist [facility] WBC 11.18(H) 3.40 - 10.80 10*3/mm3 04/05/2025 4:20 AM EDT [facility] RBC 5.00 4.14 - 5.80 10*6/mm3 04/05/2025 4:20 AM EDT [facility] Hemoglobin 13.9 13.0 - 17.7 g/dL 04/05/2025 4:20 AM EDT [facility] Hematocrit 42.4 37.5 - 51.0 % 04/05/2025 4:20 AM EDT [facility] MCV 84.8 79.0 - 97.0 fL 04/05/2025 4:20 AM EDT [facility] MCH 27.8 26.6 - 33.0 pg 04/05/2025 4:20 AM EDT [facility] MCHC 32.8 31.5 - 35.7 g/dL 04/05/2025 4:20 AM [facility] RDW 12.9 12.3 - 15.4 % 04/05/2025 4:20 AM [facility] RDW-SD 39.7 37.0 - 54.0 fl 04/05/2025 4:20 AM [facility] MPV 10.2 6.0 - 12.0 fL 04/05/2025 4:20 AM [facility] Platelets 160 140 - 450 10*3/mm3 04/05/2025 4:20 AM [facility] Neutrophil % 73.5 42.7 - 76.0 % 04/05/2025 4:20 AM [facility] Lymphocyte % 14.0(L) 19.6 - 45.3 % 04/05/2025 4:20 AM [facility] Monocyte % 11.0 5.0 - 12.0 % 04/05/2025 4:20 AM [facility] Eosinophil % 0.8 0.3 - 6.2 % 04/05/2025 4:20 AM [facility] Basophil % 0.3 0.0 - 1.5 % 04/05/2025 4:20 AM [facility] Immature Grans % 0.4 0.0 - 0.5 % 04/05/2025 4:20 AM [facility] Neutrophils, Absolute 8.23(H) 1.70 - 7.00 10*3/mm3 04/05/2025 4:20 AM [facility] Lymphocytes, Absolute 1.56 0.70 - 3.10 10*3/mm3 04/05/2025 4:20 AM [facility] Monocytes, Absolute 1.23(H) 0.10 - 0.90 10*3/mm3 04/05/2025 4:20 AM [facility] Eosinophils, Absolute 0.09 0.00 - 0.40 10*3/mm3 04/05/2025 4:20 AM [facility] Basophils, Absolute 0.03 0.00 - 0.20 10*3/mm3 04/05/2025 4:20 AM EDT [facility] Immature Grans, Absolute 0.04 0.00 - 0.05 10*3/mm3 04/05/2025 4:20 AM EDT [facility] nRBC 0.0 0.0 - 0.2 /100 WBC 04/05/2025 4:20 AM EDT [facility] Blood Venipuncture / Unknown 04/05/2025 3:54 AM EDT 04/05/2025 4:16 AM EDT Una Perla PharmD LAB BLOOD ORDERABLES Final R esult [facility]
[address] [place] [address], * (ABNORMAL) Basic Metabolic Panel (04/05/2025 3:54 AM EDT) Glucose 152(H) 65 - 99 mg/dL 04/05/2025 4:40 AM EDT [facility] BUN 17.3 6.0 - 20.0 mg/dL 04/05/2025 4:40 AM EDT [facility] Creatinine 0.92 0.76 - 1.27 mg/dL 04/05/2025 4:40 AM EDT [facility] Sodium 136 136 - 145 mmol/L 04/05/2025 4:40 AM EDT [facility] Potassium 3.9 3.5 - 5.2 mmol/L 04/05/2025 4:40 AM EDT [facility] Chloride 103 98 - 107 mmol/L 04/05/2025 4:40 AM EDT [facility] CO2 24.0 22.0 - 29.0 mmol/L 04/05/2025 4:40 AM EDT [facility] Calcium 7.8(L) 8.6 - 10.5 mg/dL 04/05/2025 4:40 AM EDT [facility] BUN/Creatinine Ratio 18.8 7.0 - 25.0 04/05/2025 4:40 AM EDT [facility] Anion Gap 9.0 5.0 - 15.0 mmol/L 04/05/2025 4:40 AM EDT [facility] eGFR 105.2 >60.0 mL/min/1.7 3 04/05/2025 4:40 AM EDT [facility] Blood Venipuncture / Unknown 04/05/2025 3:54 AM EDT 04/05/2025 4:15 AM EDT [facility] - 04/05/2025 4:40 AM [...] LAB BLOOD ORDERABLES Final Re sult [facility]
[address] [place] [address], * (ABNORMAL) aPTT (04/05/2025 12:18 AM EDT) PTT 33.6(L) 60.0 - 90.0 seconds 04/05/2025 12:53 AM EDT [facility] Blood Venipuncture / Unknown 04/05/2025 12:18 AM EDT 04/05/2025 12:37 AM EDT [facility] - 04/05/2025 12:53 AM EDT PTT = The equivalent PTT values for the therapeutic range of heparin levels at 0.3 to 0.5 U/ml are 60 to 70 seconds. [employer] PharmD LAB BLOOD ORDERABLES Final R esult Performing Organization Address City/[facility]/ZIP Co de Phone Number [facility]
[address] [place] [address], * (ABNORMAL) Protime-INR (04/05/2025 12:18 AM EDT) Protime 15.9(H) 12.2 - 15.3 Seconds 04/05/2025 12:53 AM EDT [facility] INR 1.19(H) 0.89 - 1.12 04/05/2025 12:53 AM EDT [facility] Blood Venipuncture / Unknown 04/05/2025 12:18 AM EDT 04/05/2025 12:37 AM EDT [employer] PharmD LAB BLOOD ORDERABLES Final R esult Performing Organization Address [facility] Co de Phone Number [facility]
[address] [place] [address], * Heparin Anti-Xa (04/05/2025 12:18 AM EDT) Pathologist [facility] Heparin Anti-Xa (UFH) 0.39 0.30 - 0.70 IU/ml 04/05/2025 12:54 AM EDT [facility] Blood Venipuncture / Unknown 04/05/2025 12:18 AM EDT 04/05/2025 12:37 AM EDT [employer] PharmD LAB BLOOD ORDERABLES Final R esult Performing Organization Address City/[facility]/ZIP Co de Phone Number [facility]
[address] [place] [address], * MRI Tibia Fibula Right With & [...] MD 04/04/2025 11:00 PM EDT Workstation ID: [id number] Narrative 04/04/2025 11:00 PM EDT MRI TIBIA [...] MD 04/04/2025 11:00 PM EDT Workstation ID: [id number] Leonora Shepherd MD IMG MRI ORDERABLES Final Resu lt * POC Creatinine (04/04/2025 2:49 PM EDT) Creatinine 1.10 0.60 - 1.30 mg/dL 04/07/2025 7:14 PM EDT [facility] Comment:Serial Number: [id number]: [id number] Venous Blood 04/04/2025 2:49 PM EDT 04/07/2025 7:14 PM EDT Jason Álvarez DO POINT OF CARE TEST ORDERABLES Fi nal Result [facility]
[address] [place] [address], * (ABNORMAL) CBC Auto Differential (04/04/2025 2:47 PM EDT) [facility] WBC 12.72(H) 3.40 - 10.80 10*3/mm3 04/04/2025 2:56 PM EDT [facility] RBC 5.64 4.14 - 5.80 10*6/mm3 04/04/2025 2:56 PM EDT [facility] Hemoglobin 15.3 13.0 - 17.7 g/dL 04/04/2025 2:56 PM EDT [facility] Hematocrit 47.9 37.5 - 51.0 % 04/04/2025 2:56 PM EDT [facility] MCV 84.9 79.0 - 97.0 fL 04/04/2025 2:56 PM EDT [facility] MCH 27.1 26.6 - 33.0 pg 04/04/2025 2:56 PM EDT [facility] MCHC 31.9 31.5 - 35.7 g/dL 04/04/2025 2:56 PM EDT [facility] RDW 13.1 12.3 - 15.4 % 04/04/2025 2:56 PM EDT [facility] RDW-SD 40.3 37.0 - 54.0 fl 04/04/2025 2:56 PM EDT [facility] MPV 9.4 6.0 - 12.0 fL 04/04/2025 2:56 PM EDT [facility] Platelets 232 140 - 450 10*3/mm3 04/04/2025 2:56 PM EDT [facility] Neutrophil % 74.9 42.7 - 76.0 % 04/04/2025 2:56 PM EDT [facility] Lymphocyte % 13.1(L) 19.6 - 45.3 % 04/04/2025 2:56 PM EDT [facility] Monocyte % 11.2 5.0 - 12.0 % 04/04/2025 2:56 PM EDT [facility] Eosinophil % 0.4 0.3 - 6.2 % 04/04/2025 2:56 PM EDT [facility] Basophil % 0.2 0.0 - 1.5 % 04/04/2025 2:56 PM EDT [facility] Immature Grans % 0.2 0.0 - 0.5 % 04/04/2025 2:56 PM EDT [facility] Neutrophils, Absolute 9.52(H) 1.70 - 7.00 10*3/mm3 04/04/2025 2:56 PM EDT [facility] Lymphocytes, Absolute 1.66 0.70 - 3.10 10*3/mm3 04/04/2025 2:56 PM EDT [facility] Monocytes, Absolute 1.43(H) 0.10 - 0.90 10*3/mm3 04/04/2025 2:56 PM EDT [facility] Eosinophils, Absolute 0.05 0.00 - 0.40 10*3/mm3 04/04/2025 2:56 PM EDT [facility] Basophils, Absolute 0.03 0.00 - 0.20 10*3/mm3 04/04/2025 2:56 PM EDT [facility] Immature Grans, Absolute 0.03 0.00 - 0.05 10*3/mm3 04/04/2025 2:56 PM EDT [facility] nRBC 0.0 0.0 - 0.2 /100 WBC 04/04/2025 2:56 PM EDT [facility] Blood Venipuncture / Unknown 04/04/2025 2:47 PM EDT 04/04/2025 2:52 PM EDT us Mario Crowley DO LAB BLOOD ORDERABLES Fin al Result [facility]
[address] [place] [address], * (ABNORMAL) C-reactive Protein (04/04/2025 2:47 PM EDT) C-Reactive Protein 8.57(H) 0.00 - 0.50 mg/dL 04/04/2025 3:26 PM EDT [facility] Blood Venipuncture / Unknown 04/04/2025 2:47 PM EDT 04/04/2025 2:52 PM EDT [facility] Fin al Result Performing Organization Address City/[facility]/ZIP Co de Phone Number [facility]
[address] [place] [address], * (ABNORMAL) Sedimentation Rate (04/04/2025 2:47 PM EDT) Pathologist [facility] Sed Rate 51(H) 0 - 15 mm/hr 04/04/2025 3:06 PM EDT [facility] Blood Venipuncture / Unknown 04/04/2025 2:47 PM EDT 04/04/2025 2:52 PM EDT [facility]LOOD [facility]LES Fin al Result Performing Organization Address City/[facility] Co de Phone Number [facility]
[address] [place] [address], * Comprehensive Metabolic Panel (04/04/2025 2:47 PM EDT) Pathologist [facility] Glucose 90 65 - 99 mg/dL 04/04/2025 3:26 PM EDT [facility] BUN 18.3 6.0 - 20.0 mg/dL 04/04/2025 3:26 PM EDT [facility] Creatinine 0.94 0.76 - 1.27 mg/dL 04/04/2025 3:26 PM EDT [facility] Sodium 136 136 - 145 mmol/L 04/04/2025 3:26 PM EDT [facility] Potassium 3.8 3.5 - 5.2 mmol/L 04/04/2025 3:26 PM EDT [facility] Chloride 100 98 - 107 mmol/L 04/04/2025 3:26 PM EDT [facility] CO2 25.3 22.0 - 29.0 mmol/L 04/04/2025 3:26 PM EDT [facility] Calcium 8.6 8.6 - 10.5 mg/dL 04/04/2025 3:26 PM T [facility] Total Protein 7.3 6.0 - 8.5 g/dL 04/04/2025 3:26 PM EDT [facility] Albumin 4.1 3.5 - 5.2 g/dL 04/04/2025 3:26 PM T [facility] ALT (SGPT) 26 1 - 41 U/L 04/04/2025 3:26 PM [facility] AST (SGOT) 25 1 - 40 U/L 04/04/2025 3:26 PM T [facility] Alkaline Phosphatase 106 39 - 117 U/L 04/04/2025 3:26 PM T [facility] Total Bilirubin 1.0 0.0 - 1.2 mg/dL 04/04/2025 3:26 PM T [facility] Globulin 3.2 gm/dL 04/04/2025 3:26 PM [facility] Comment:Calculated Result A/G Ratio 1.3 g/dL 04/04/2025 3:26 PM [facility] BUN/Creatinine Ratio 19.5 7.0 - 25.0 04/04/2025 3:26 PM [facility] Anion Gap 10.7 5.0 - 15.0 mmol/L 04/04/2025 3:26 PM [facility] eGFR 102.5 >60.0 mL/min/1.7 3 04/04/2025 3:26 PM [facility] Blood Venipuncture / Unknown 04/04/2025 2:47 PM EDT 04/04/2025 2:52 PM EDT [facility] - 04/04/2025 3:26 PM EDT [...] LAB BLOOD ORDERABLES Fin al Result [facility]
[address] [place] [address], documented in this encounter Visit Diagnoses Diagnosis [...] BPA Driven Protocol Open Order & Select [facility] Electrolyte Replacement Protocol Algorithm to [...] BPA Driven Protocol Open Order & [facility] Electrolyte Replacement Protocol Algorithm to [...] Salazar, KELL)1943 (Given - Provider: Anahy Marcelino, ADULT AND PEDIATRIC NEUROLOGIST)2129 (Canceled Entry - Provider: Anahy Marcelino ADULT AND PEDIATRIC NEUROLOGIST - Comment: previously given) 0837 (Given - [...] Provider: Shirley Hart RN)2026 (Given - Provider: Albetro Dillon RN) 09 (Given - Provider: Shirley [...] RN) 0906 (Given - Provider: Shirley Hart, UL)2030 (Given - Provider: Alberto Dillon RN) 100 [...] Continuous Medication Order 04/09/2025 04/10/2025 04/11/2025 heparin 68453 units/250 mL (100 units/mL) in 0.45 % [...] CPOT 5-8 2032 (Given - Provider: Alberto iDllon RN) 0906 (Given - Provider: Shirley Hart, [...] Hart, RN)2124 (Given - Provider: Alberto Dillon, UL) 1003 (Given - Provider: Marguerite Wakefield RN) [...] BPA Driven Protocol Open Order & [facility] Electrolyte Replacement Protocol Algorithm to [...] documented as of this encounter Care Teams Block Sorter Relationship Specialty Start Date End Date Provider, No Known [place] [id number] PCP - General 05/09/23 documented as of this encounter
--- OUTSIDE RECORDS SUMMARY | 2025-04-07 20:36 | XMS_ITS | Encounter Summary ---
Author Organization [facility] Address [address] [place] [address] Care Team Providers Care Credit Compliance Officer Name Role Phone Provider, No Known Primary Care Provider Unavail able Reason for Visit * Auth/Cert Specialty Diagnoses / Procedures Referred By Bulmaro muniz Referred To Contact Diagnoses Right BKA infection Referral ID Status Reason Start Date Expiration Date Visits Re quested Visits Authorized [id number] 1 1 Encounter Details Date Type Department Care Team (Late st Contact Info) Description 04/07/2025 8:36 PM EDT Anesthesia Event [facility] OR [address] [place] [address] Luci Alonso DO [address] [place] [address] Anesthesia Record Procedure Summary Procedure Name Responsible [...] 04/07/25; RIGHT LEG 04/07/25 0000 by Anum Snachez RN Peripheral IV Placement Date: 04/04/25; Placement [...] = 0.6 oz pur e alcohol) [facility] Utilities Answer Date Recorded In the past 12 months has [employer], gas, oil, or water [employer] threatened to shut off services in your [...] or training? Not on file Preferred Language Sammarinese 04/07/2025 Sex and Gender Information Value Date [...] PACU on O2NC, breathing comfortably. Report to COATER HELPER at bedside. VSS. * Anesthesia Procedure Notes [...] Musculoskeletal Abdominal Substance History - negative use RN IMMUNOLOGY Other ROS/Med Hx Other: Eliquis 04/04/25 Hgb 14.7 k 43.2 Factor 2 on eliquis +gerd Anesthesia Plan ASA 3 - emergent general Rapid sequence (Risks and benefits of general anesthesia discussed with patient (including [place], CVA, , recall,aspiration, oropharyngeal/dental damage), questions answered, agreeable to proceed. ) intravenous induction Anesthetic plan, risks, benefits, and alternatives have been provided, discussed and informed consent has been obtained with: patient. Plan discussed with PATIENT APPOINTMENT COORDINATOR. CODE STATUS: Code Status (Patient has no [...] documented as of this encounter Care Teams Credit Compliance Officer Relationship Specialty Start Date End Date Provider, No Known [facility] [address] PCP - General 05/09/23 documented as of this encounter
--- OUTSIDE RECORDS SUMMARY | 2025-04-08 14:45 | XMS_ITS | Encounter Summary ---
Author Organization [facility] Address [address] [place] [address] Care Team Providers Care Holter Technician Name Role Phone Provider, No Known Primary Care Provider Unavail able Reason for Visit * Reason Comments Leg Swelling * Auth/Cert Specialty Diagnoses / Procedures Referred By Contac t Referred To Contact Diagnoses Right BKA infection Referral ID Status Reason Start Date Expiration Date Visits Re quested Visits Authorized [id number] 1 1 Encounter Details Date Type Department Care Team (Late st Contact Info) Description 04/08/2025 2:45 PM EDT - 04/08/2025 4:04 PM EDT Surgery [facility] [address] [place] [address] Sushil Dean Jr., MD [address] [place] [address] [address] [id number] LEG DEBRIDEMENT AND IRRIGATION Social History Tobacco Use Types Packs/Day Years Used Date Smoking Tobacco: Never Smokeless Tobacco: Never Tobacco Cessation:Counseling Given: Not Answered Alcohol Use Standard Drinks/Week Comments Not Currently 0 (1 standard drink = 0.6 oz pur e alcohol) [facility] Utilities Answer Date Recorded In the past 12 months has [employer] electric, gas, oil, or water company [...] 2:25 PM EDT Cherri Grimm RN * [place] Suicide Severity Rating Scale (Screener/Recent Self-Report) Question [...] from the original note were not included. [facility] Medicine Services DISCHARGE [...] Date/Time Wound Culture - Swab, Leg, Right [[id number]] (Abnormal) (Susceptibility) Collected: 04/07/252106 Lab Status: Final [...] Units Date/Time FL C Arm During Surgery [[id number]] Resulted: 04/07/252137 Updated: 04/07/252137 Narrative: This procedure was auto-finalized with no dictation required. MRI Tibia Fibula Right With & Without Contrast [[id number]] Collected: 04/07/25 0938 Updated: 04/07/25 1001 Narrative: [...] Buenrostro 04/07/2025 9:58 AM EDT Workstation ID: [id number] MRI Tibia Fibula Right With & Without Contrast [[id number]] Collected: 04/04/252256 Updated: 04/04/252302 Narrative: MRI TIBIA [...] represent a small area of phlegmonous change ([id number] image 10) measuring approximately 1.6 cm which [...] MD 04/04/2025 11:00 PM EDT Workstation ID: [id number] Pending Labs Order Current Status Fungus Culture [...] Male) Date of 1980 Social Security Number [id number] [place] [address] [place] [id number] Uatsdin Unknown Marital Status Unknown Admission Date [...] Group [employer] MEDICAID ID HUMANA MEDICAID ID [id number] Payor Plan Address Payor Plan Phone Number Payor Plan Fax Number Effective Dates [employer] [address] [address] 08/10/2023 - None Entered Formerly [facility] [address] Subscriber Name Subscriber Date Member ID WON DENNIS 1980 [id number] Emergency Contacts Hull Inspector (Rel.) Home Phone Work Phone Mobile Phone Avril Dennis (Spouse) -- -- [phone] Robert Hackett (Relative) -- -- [phone] [facility] [address] [facility] [address] Patient: ROOM: [facility] Won Dennis [address] 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 Outpatient intravenous antibiotic therapy: Daptomycin 800 mg IV daily to be supplied by [facility] 2. Home health to perform [...] INFECTIOUS DISEASE Progress Note Won Dennis 1980 [id number] Date of Consult: 04/10/2025 Admission Date: 04/04/2025 [...] which prompted him to seek treatment at [facility]. He is known to Dr. [...] Jr., MD, 20 mg at 04/09/25906 heparin 71740 units/250 mL (100 units/mL) in 0.45 % [...] Units Date/Time FL C Arm During Surgery [[id number]] Resulted: 04/07/252137 Updated: 04/07/252137 Narrative: This procedure was auto-finalized with no dictation required. MRI Tibia Fibula Right With & Without Contrast [[id number]] Collected: 04/07/2538 Updated: 04/07/25 1001 Narrative: MRI [...] Buenrostro 04/07/2025 9:58 AM EDT Workstation ID: [id number] Impression: Recurrent Right BKA stump abscess/cellulitis- this [...] his disposition with the pharmacist at [facility] today. I will sign off Outpatient orders: 1. Outpatient intravenous antibiotic therapy: Daptomycin 800 mg IV daily to be supplied by [facility] 2. Home health to perform [...] Time: 04/10/251323 Signed Expand All [facility] Medicine Services PROGRESS NOTE Patient Name: [...] Date/Time Wound Culture - Swab, Leg, Right [[id number]] (Abnormal) (Susceptibility) Collected: 04/07/252106 Lab Status: Final [...] lower extremity ROM WFL -[facility] Name 04/06/25 1145 Strength Comprehensive (MMT) General Manual Muscle Testing (MMT) Assessment no strength deficits identified BLEs -[facility] Name 04/06/25 1145 Balance Balance Assessment sitting [...] d/c. PT signing off. -[facility] Name 04/06/25 1146 Therapy Assessment/Plan (PT) Criteria for Skilled Interventions Met (PT) no;no problems identified which require skilled intervention -LM Therapy Frequency (PT) evaluation only -LM Predicted Duration of Therapy Intervention (PT) Eval Only -[facility] Name 04/06/25 1146 Vital Signs Pretreatment Heart Rate (beats/min) 86 -LM Posttreatment Heart Rate (beats/min) 96 -LM Pre SpO2 (%) 95 -LM O2 Delivery Pre Treatment room air -LM Post SpO2 (%) 96 -LM O2 Delivery Post Treatment room air -LM Pre Patient Position Sitting -LM Post Patient Position Sitting -[facility] Name 04/06/25 1146 Positioning and Restraints Pre-Treatment [...] Nurse Physical Therapy Education Title: PT OT GREASE RENDERER Therapies (Done) Topic: Physical Therapy (Done) Point: Mobility training (Done) Learning Progress Summary Patient Acceptance, E, VU,DU by at 04/06/2025 1147 Point: Precautions (Done) Learning Progress Summary Patient Acceptance, E, VU,DU by at 04/06/2025 1147 User Cabrera Initials Effective Dates Name Provider Type [facility] 01/24/25 - Susan Cavazos, PT Physical [...] Description Service Date Service Provider Modifiers Qty [id number] PT EVAL LOW COMPLEXITY 3 04/06/2025 Susan [...] mg Daily 04/05/2025 -- Route: Oral heparin 03584 units/250 mL (100 units/mL) in 0.45 % [...] 22 [facility] [address], [address] Formerly [facility], [address] Please schedule at [phone] VONDA Garcia 04/11/25 08:32 EDT Cosigned by Sushil Dean Jr., MD at 04/19/2025 10:33 AM EDT Associated attestation - Sushil Dean Jr., MD - 04/19/2025 10:33 AM EDT I have reviewed this documentation and agree. * Rosario Hill APRN - 04/10/2025 1:24 PM EDT Images from the original note were not included. [facility] Medicine Services PROGRESS [...] Date/Time Wound Culture - Swab, Leg, Right [[id number]] (Abnormal) (Susceptibility) Collected: 04/07/252106 Lab Status: Final [...] mg Daily 04/05/2025 -- Route: Oral heparin 04690 units/250 mL (100 units/mL) in 0.45 % [...] 22 [facility] [address] [facility], [address] Formerly [facility], [address] Please schedule at [phone] VONDA Garcia 04/10/25 09:01 EDT Cosigned by Sushil Dean Jr., MD at 04/19/2025 10:33 AM EDT Associated attestation - Sushil Dean Jr., MD - 04/19/2025 10:33 AM EDT I have reviewed this documentation and agree. * Carlton Mead MD - 04/10/2025 7:38 AM EDT Images from the original note were not included. INFECTIOUS DISEASE Progress Note Won Dennis 1980 [id number] Date of Consult: 04/10/2025 Admission Date: 04/04/2025 [...] which prompted him to seek treatment at [facility]. He is known to Dr. [...] IRRIGATION; Surgeon: Sushil Dean Jr., MD; Location: [facility]; Service: Orthopedics; Laterality: Right; PLACEMENT OF WOUND VAC Right 04/07/2025 Procedure: WOUND VACUUM ASSISTED CLOSURE; Surgeon: Sushil Dean Jr., MD; Location: [facility]; Service: Orthopedics; Laterality: Right; WOUND CLOSURE [...] Jr., MD, 20 mg at 04/09/25906 heparin 12212 units/250 mL (100 units/mL) in 0.45 % [...] Units Date/Time FL C Arm During Surgery [[id number]] Resulted: 04/07/252137 Updated: 04/07/252137 Narrative: This procedure was auto-finalized with no dictation required. MRI Tibia Fibula Right With & Without Contrast [[id number]] Collected: 04/07/25937 Updated: 04/07/25 100 Narrative: MRI [...] Buenrostro 04/07/2025 9:58 AM EDT Workstation ID: [id number] Impression: Recurrent Right BKA stump abscess/cellulitis- this [...] his disposition with the pharmacist at [facility] today. I will sign off Outpatient orders: 1. Outpatient intravenous antibiotic therapy: Daptomycin 800 mg IV daily to be supplied by [facility] 2. Home health to perform [...] MD 04/10/2025 07:38 EDT * Larisa Hamilton [facility] - 04/10/2025 7:17 AM EDT Pharmacy to [...] from the original note were not included. [facility] Medicine Services PROGRESS [...] Date/Time Wound Culture - Swab, Leg, Right [[id number]] (Abnormal) Collected: 04/07/252106 Lab Status: Preliminary result [...] DO 04/09/25 * Larisa Hamilton [facility] - 04/09/2025 11:36 AM EDT Pharmacy to [...] mg Daily 04/05/2025 -- Route: Oral heparin 21587 units/250 mL (100 units/mL) in 0.45 % [...] radiographs [facility] [address] [facility], [address] [facility], [address] Please schedule at [phone] VONDA Garcia 04/09/25 09:18 EDT Cosigned by Sushil Dean Jr., MD at 04/19/2025 10:33 AM EDT Associated attestation - Sushil Dean Jr., MD - 04/19/2025 10:33 AM EDT I have reviewed this documentation and agree. * Carlton Mead MD - 04/09/2025 8:25 AM EDT Images from the original note were not included. INFECTIOUS DISEASE Progress Note Won Dennis 1980 [id number] Date of Consult: 04/09/2025 Admission Date: 04/04/2025 [...] which prompted him to seek treatment at [facility]. He is known to Dr. [...] Sushil Dean Jr., MD; Location: [facility]; Service: Orthopedics; Laterality: Right; PLACEMENT OF WOUND VAC Right 04/07/2025 Procedure: WOUND VACUUM ASSISTED CLOSURE; Surgeon: Sushil Dean Jr., MD; Location: [facility]; Service: Orthopedics; Laterality: Right; [...] MD, 20 mg at 04/08/25 0800 heparin 57594 units/250 mL (100 units/mL) in 0.45 % [...] Units Date/Time FL C Arm During Surgery [[id number]] Resulted: 04/07/252137 Updated: 04/07/252137 Narrative: This procedure was auto-finalized with no dictation required. MRI Tibia Fibula Right With & Without Contrast [[id number]] Collected: 04/07/25 0938 Updated: 04/07/25 1001 Narrative: [...] Chitra 04/07/2025 9:58 AM EDT Workstation ID: [id number] Impression: Recurrent Right BKA stump abscess/cellulitis- this [...] mg IV daily to be supplied by [facility] 2. Home health to perform [...] from the original note were not included. [facility] Medicine Services PROGRESS [...] Buenrostro 04/07/2025 9:58 AM EDT Workstation ID: [id number] I have personally reviewed the therapy plans: [...] DO 04/08/25 * Hamilton, Larisa, [facility] - 04/08/2025 11:48 AM EDT Pharmacy to [...] mg Daily 04/05/2025 -- Route: Oral heparin 40868 units/250 mL (100 units/mL) in 0.45 % [...] INFECTIOUS DISEASE Progress Note Won Dennis 1980 [id number] Date of Consult: 04/08/2025 Admission Date: 04/04/2025 [...] which prompted him to seek treatment at [facility]. He is known to Dr. [...] IRRIGATION; Surgeon: Sushil Dean Jr., MD; Location: [facility]; Service: Orthopedics; Laterality: Right; PLACEMENT OF WOUND VAC Right 04/07/2025 Procedure: WOUND VACUUM ASSISTED CLOSURE; Surgeon: Sushil Dean Jr., MD; Location: [facility]; Service: Orthopedics; Laterality: Right; [...] Oral, Q6H PRN, 500 mg at 04/06/25 1314 OR acetaminophen (TYLENOL) 160 MG/5ML oral solution [...] Jr., MD, 20 mg at 04/07/25950 heparin 95016 units/250 mL (100 units/mL) in 0.45 % [...] Not Applicable, PRN, Sushil eDan Jr., MD saccharomyces boulardii (FLORASTOR) capsule 250 [...] Units Date/Time FL C Arm During Surgery [[id number]] Resulted: 04/07/252137 Updated: 04/07/252137 Narrative: This procedure was auto-finalized with no dictation required. MRI Tibia Fibula Right With & Without Contrast [[id number]] Collected: 04/07/25 0938 Updated: 04/07/25 1001 Narrative: [...] Buenrostro 04/07/2025 9:58 AM EDT Workstation ID: [id number] Impression: Right BKA stump cellulitis- s/p BKA with multiple surgical interventions with Known MRSA 05/09/2025. (Treated by ID in [place] Dr. Harris). Dr. Torres treated him with [...] from the original note were not included. [facility] Medicine Services PROGRESS [...] Buenrostro 04/07/2025 9:58 AM EDT Workstation ID: [id number] I have personally reviewed the therapy plans: [...] Preeti 04/07/25 * Larisa Hamilton, [facility] - 04/07/2025 11:56 AM EDT Pharmacy to [...] INFECTIOUS DISEASE Progress Note Won Dennis 1980 [id number] Date of Consult: 04/07/2025 Admission Date: 04/04/2025 [...] which prompted him to seek treatment at [facility]. He is known to Dr. [...] MD, 20 mg at 04/06/25 0900 heparin 18089 units/250 mL (100 units/mL) in 0.45 % NaCl infusion, 18 Units/kg/hr, Intravenous, Titrated, Cherri Beatty, [facility], Last Rate: 24.1 mL/hr at 04/07/258, 18 [...] With & Without Contrast - In process [[id number]] Resulted: 04/07/25828 Updated: 04/07/25828 This result has not been signed. Information might be incomplete. MRI Tibia Fibula Right With & Without Contrast [[id number]] Collected: 04/04/252256 Updated: 04/04/253 Narrative: MRI TIBIA [...] represent a small area of phlegmonous change ([id number] image 10) measuring approximately 1.6 cm which [...] MD 04/04/2025 11:00 PM EDT Workstation ID: [id number] Impression: Right BKA stump cellulitis- s/p BKA with multiple surgical interventions with Known MRSA 05/09/2025. (Treated by ID in [place] Dr. Harris). Dr. Torres treated him with [...] mg Daily 04/05/2025 -- Route: Oral heparin 99963 units/250 mL (100 units/mL) in 0.45 % [...] 06:07 EDT * Cherri Beatty [facility] - 04/06/2025 1:47 PM EDT Pharmacy to [...] from the original note were not included. [facility] Medicine Services PROGRESS [...] MD 04/04/2025 11:00 PM EDT Workstation ID: [id number] I have personally reviewed the therapy plans: [...] mg Daily 04/05/2025 -- Route: Oral heparin 26909 units/250 mL (100 units/mL) in 0.45 % [...] INFECTIOUS DISEASE follow up. Won Dennis 1980 [id number] Date of Consult: 04/06/2025 Admission Date: 04/04/2025 [...] which prompted him to seek treatment at [facility]. He is known to Dr. [...] MD, 20 mg at 04/06/25 0900 heparin 14766 units/250 mL (100 units/mL) in 0.45 % NaCl infusion, 18 Units/kg/hr, Intravenous, Titrated, Cherri Beatty [facility], Last Rate: 24.1 mL/hr at 04/06/25 1420, [...] Tibia Fibula Right With & Without Contrast [[id number]] Collected: 04/04/252256 Updated: 04/04/252302 Narrative: MRI TIBIA [...] represent a small area of phlegmonous change ([id number] image 10) measuring approximately 1.6 cm which [...] MD 04/04/2025 11:00 PM EDT Workstation ID: [id number] Impression: Right BKA stump cellulitis- s/p BKA with multiple surgical interventions with Known MRSA 05/09/2025. (Treated by ID in [place] Dr. Harris). Dr. Torres treated him with [...] from the original note were not included. [facility] Medicine Services PROGRESS [...] MD 04/04/2025 11:00 PM EDT Workstation ID: [id number] I have personally reviewed the therapy plans: [...] from the original note were not included. [facility] Medicine Services HISTORY [...] MD 04/04/2025 11:00 PM EDT Workstation ID: [id number] Assessment & Plan Assessment & Plan Won [...] ORTHOPEDIC SURGERY [facility], [facility] [address] [address] Orthopedic Consult Patient: Won Dennis Date of Admission: 04/04/2025 4:10 PM Date of : 1980 Attending Physician: Jason Álvarez DO Consulting Physician: Sushil Dean Jr, MD Chief Complaint: 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 male admitted to [facility] with Right BKA infection [T87.43]. [...] was evaluated in the emergency department in [place], was discharged with instructions for follow-up. He [...] tablet by mouth Daily. 04/03/2025 Morning Lactobacillus-Inulin ([facility] Digestive [facility]) capsule Take 200 mg by mouth [...] MD 04/04/2025 11:00 PM EDT Workstation ID: [id number] Assessment: Right BKA infection 44-year-old male with [...] DISEASE CONSULT/INITIAL HOSPITAL VISIT Won Dennis 1980 [id number] Date of Consult: 04/05/2025 Admission Date: 04/04/2025 [...] which prompted him to seek treatment at [facility]. He is known to Dr. [...] Leonora Shepherd MD, 40 mg at 04/04/25 8397 sennosides-docusate (PERICOLACE) 8.6-50 MG per tablet 2 [...] MD, 20 mg at 04/05/25 09 heparin 79828 units/250 mL (100 units/mL) in 0.45 % [...] Leonora Shepherd MD, 10 mg at 04/04/25 9870 Pharmacy to Dose Heparin, , Not Applicable, [...] Tibia Fibula Right With & Without Contrast [[id number]] Collected: 04/04/252256 Updated: 04/04/252302 Narrative: MRI TIBIA [...] represent a small area of phlegmonous change ([id number] image 10) measuring approximately 1.6 cm which [...] MD 04/04/2025 11:00 PM EDT Workstation ID: [id number] Impression: Right BKA stump cellulitis- s/p BKA with multiple surgical interventions with Known MRSA 05/09/2025. (Treated by ID in [place] Dr. Harris). Dr. Torres treated him with [...] pads utilized Goal Outcome Evaluation: * Susan Cavazso PT - 04/06/2025 11:22 AM EDT Goal [...] infection POSTOP DIAGNOSIS: Same. PROCEDURE: Right Right 63482: Secondary closure below-knee amputation SURGEON: Sushil Dean MD OPERATIVE TEAM: Scientific Affairs Manager: Susi Grullon RN Scrub Person: Mary Paredes Scrub Person Extra: Hortencia Toribio Other: Katt Gotti RN; Charis Nevilel RN ANESTHETIST: Anesthesiologist: Ulises Hoffman MD TRIM LINE WORKER: Stan Casillas CRNA Student Nurse Hod Carrier: Karol Albert SRNA ANESTHESIA: Choice ESTIMATED [...] CULTURE (Canceled) Sushil Dean Jr., MD 04/08/25 1900 Description: RIGHT LEG DEEP WOUND FOR CULTURE [...] PM EDT [facility], [place] [address] OPERATIVE REPORT PATIENT NAME: Won Dennis DATE OF : 1980 PREOP DIAGNOSIS: Right Right below knee amputation stump infection POSTOP DIAGNOSIS: Same. PROCEDURE: Right Right 59056: Incision and drainage of surgical site infection 16767: Debridement of skin, subcutaneous tissue, muscle 54522: Wound vacuum-assisted closure SURGEON: Sushil Dean MD OPERATIVE TEAM: Scientific Affairs Manager: Anum Sanchez RN Scrub Person: Hortencia Toribio; Gerald Ivey MARKET DEVELOPMENT TRAINER: Anesthesiologist: Luci Alonso DO ANESTHESIA: General ESTIMATED [...] ago swellling of the area. seen at [facility] yesterday for CT and US, [...] 100 mL MBP, 2,000 mg, Intravenous, Once, aMrio Crowley DO Morphine sulfate (PF) injection 4 [...] this chart in the absence of a community organization director. No orders to display RADIOLOGY: [x] Radiologist's [...] changes. DEBRA has spoke with Dena at [facility] today multiple times to get [...] to get IV ABX at home with [facility]; however, Medicaid lapsed on 04/08. DEBRA was unaware until this morning that Medicaid has lapsed. Patient explained that he has Medicare A and B. CM spoke with KELLEE and given themhis Medicare number [id number], she sent it to Admission. DEBRA spoke with Kerri, with [facility], and explained that he had Medicare A and B. However, it will not cover home infusion. It will be $64.00 a day out of packet. Patients can go to the Infusion center at [facility], and it will cover the [...] over to [facility] at [phone]. CM will follow up with them tomorrow [...] with patient at bedside today. Wheelchair from [employer] is at bedside. Patient getting PICC line [...] with family Patient/Family Anticipated Services at Transition supervisor case loadingprogram development manager Anticipated family or friend will provide Discharge Needs Assessment Equipment Currently Used at Home glucometer;shower chair;pulse ox;bp cuff;prosthesis;crutches Equipment Needed After Discharge none Discharge Plan Row Name 04/07/25 1144 Plan Plan Home Patient/Family in Agreement with Plan yes Plan Comments CM spoke with patient at bedside today. Patient lives with and his 5 kids in [facility]. 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 He has walker, cane, shower chair, and crutches. He requested a wheelchair for home. CM will order wheelchair through [facility]. He is not current with home [...] General Information Arrived From hospital Preferred Language Barbadian Functional Status Row Name 04/07/25 1143 Functional [...] 3:4 0 PM EDT Right BKA infection DC SEC ABDOMINAL WALL SUTURE EVISCERATION/DEHSN 04/08/2025 3:20 [...] 4.14 - 5.80 10*6/mm3 04/11/2025 4:02 AM [facility] Hemoglobin 12.8(L) 13.0 - 17.7 g/dL 04/11/2025 4:02 AM [facility] Hematocrit 40.5 37.5 - 51.0 % 04/11/2025 4:02 AM [facility] MCV 86.2 79.0 - 97.0 fL 04/11/2025 4:02 AM [facility] MCH 27.2 26.6 - 33.0 pg 04/11/2025 4:02 AM [facility] MCHC 31.6 31.5 - 35.7 g/dL 04/11/2025 4:02 AM [facility] RDW 12.9 12.3 - 15.4 % 04/11/2025 4:02 AM [facility] RDW-SD 40.5 37.0 - 54.0 fl 04/11/2025 4:02 AM [facility] MPV 9.2 6.0 - 12.0 fL 04/11/2025 4:02 AM [facility] Platelets 267 140 - 450 10*3/mm3 04/11/2025 4:02 AM [facility] Neutrophil % 59.5 42.7 - 76.0 % 04/11/2025 4:02 AM [facility] Lymphocyte % 26.3 19.6 - 45.3 % 04/11/2025 4:02 AM [facility] Monocyte % 9.3 5.0 - 12.0 % 04/11/2025 4:02 AM [facility] Eosinophil % 4.1 0.3 - 6.2 % 04/11/2025 4:02 AM [facility] Basophil % 0.4 0.0 - 1.5 % 04/[facility] Immature Grans % 0.4 0.0 - 0.5 % 04/11/2025 4:02 AM EDT [facility] Neutrophils, Absolute 4.69 1.70 - 7.00 [...] Fi nal Result [facility]
[address] [place] [address], * (ABNORMAL) Comprehensive Metabolic Panel (04/11/2025 3:40 AM EDT) Glucose 108(H) 65 - 99 mg/dL 04/11/2025 4:19 AM EDT [facility] BUN 12.5 6.0 - 20.0 mg/dL 04/11/2025 4:19 AM EDT [facility] Creatinine 0.68(L) 0.76 - 1.27 mg/dL 04/11/2025 4:19 AM [facility] Sodium 140 136 - 145 mmol/L 04/11/2025 4:19 AM [facility] Potassium 3.8 3.5 - 5.2 mmol/L 04/11/2025 4:19 AM [facility] Chloride 105 98 - 107 mmol/L 04/11/2025 4:19 AM [facility] CO2 28.2 22.0 - 29.0 mmol/L 04/11/2025 4:19 AM [facility] Calcium 8.2(L) 8.6 - 10.5 mg/dL 04/11/2025 4:19 AM [facility] Total Protein 6.1 6.0 - 8.5 g/dL 04/11/2025 4:19 AM [facility] Albumin 3.1(L) 3.5 - 5.2 g/dL 04/11/2025 4:19 AM [facility] ALT (SGPT) 52(H) 1 - 41 U/L 04/11/2025 4:19 AM [facility] AST (SGOT) 40 1 - 40 U/L 04/11/2025 4:19 AM [facility] Alkaline Phosphatase 99 39 - 117 U/L 04/11/2025 4:19 AM [facility] Total Bilirubin 0.2 0.0 - 1.2 mg/dL 04/11/2025 4:19 AM [facility] Globulin 3.0 gm/dL 04/11/2025 4:19 AM [facility] Comment:Calculated Result A/G Ratio 1.0 g/dL 04/11/2025 4:19 AM [facility] BUN/Creatinine Ratio 18.4 7.0 - 25.0 04/11/2025 4:19 AM [facility] Anion Gap 6.8 5.0 - 15.0 mmol/L 04/11/2025 4:19 AM [facility] eGFR 117.5 >60.0 mL/min/1.7 3 04/11/2025 4:19 AM EDT [facility] Blood Venipuncture / Unknown 04/11/2025 3:40 AM EDT 04/11/2025 3:56 AM EDT [facility] LABORATORY - 04/11/2025 4:19 AM EDT [...] ORDERABLES Final Result [facility]
[address] [place] [address], * (ABNORMAL) CBC Auto Differential (04/10/2025 3:46 [...] 3:56 AM EDT [facility] RDW 12.9 12.3 - 15.4 % [facility] RDW-SD 40.5 37.0 - 54.0 fl 04/10/2025 3:56 AM EDT [facility] MPV 9.5 6.0 - 12.0 fL 04/10/2025 3:56 AM EDT [facility] Platelets 227 140 - 450 10*3/mm3 04/10/2025 3:56 AM [facility] Neutrophil % 59.1 42.7 - 76.0 % 04/10/2025 3:56 AM [facility] Lymphocyte % 29.0 19.6 - 45.3 % 04/[facility] Monocyte % 8.1 5.0 - 12.0 % 04/10/2025 3:56 AM [facility] Eosinophil % 3.2 0.3 - 6.2 % 04/10/2025 3:56 AM [facility] Basophil % 0.4 0.0 - 1.5 % 04/10/2025 3:56 AM [facility] Immature Grans % 0.2 0.0 - [...] Final Resul t [facility]
[address] [place] [address], * (ABNORMAL) Basic Metabolic Panel (04/10/2025 3:46 [...] Final Resul t [facility]
[address] [place] [address], * Heparin Anti-Xa (04/10/2025 3:46 AM EDT) Heparin Anti-Xa (UFH) 0.35 0.30 - 0.70 IU/ml 04/10/2025 4:23 AM EDT [facility] Blood Venipuncture / Unknown 04/10/2025 3:46 AM EDT 04/10/2025 3:53 AM EDT Larisa Hamilton [facility] BLOOD ORDERABLES Final R esult [facility]
[address] [place] [address], * Heparin Anti-Xa (04/09/2025 10:05 AM EDT) Pathologist [facility] Heparin Anti-Xa (UFH) 0.36 0.30 - 0.70 IU/ml 04/09/2025 11:12 AM EDT [facility] Blood Venipuncture / Unknown 04/09/2025 10:05 AM EDT 04/09/2025 10:47 AM EDT Larisa Hamilton [facility] LAB BLOOD ORDERABLES Final R esult [facility]
[address] [place] [address], * (ABNORMAL) CBC Auto Differential (04/09/2025 4:18 [...] 12.3 - 15.4 % 04/09/2025 4:50 AM [facility] RDW-SD 39.9 37.0 - 54.0 fl 04/09/2025 4:50 AM [facility] MPV 10.0 6.0 - 12.0 fL 04/09/2025 4:50 AM [facility] Platelets 211 140 - 450 10*3/mm3 04/09/2025 4:50 AM [facility] Neutrophil % 74.8 42.7 - 76.0 % 04/09/2025 4:50 AM [facility] Lymphocyte % 15.4(L) 19.6 - 45.3 % 04/09/2025 4:50 AM [facility] Monocyte % 8.5 5.0 - 12.0 % 04/09/2025 4:50 AM [facility] Eosinophil % 0.6 0.3 - 6.2 % 04/09/2025 4:50 AM [facility] Basophil % 0.4 0.0 - 1.5 % 04/09/2025 4:50 AM [facility] Immature Grans % 0.3 0.0 - 0.5 % 04/09/2025 4:50 AM [facility] Neutrophils, Absolute 8.23(H) 1.70 - 7.00 10*3/mm3 04/09/2025 4:50 AM [facility] Lymphocytes, Absolute 1.69 0.70 - 3.10 10*3/mm3 04/09/2025 4:50 AM [facility] Monocytes, Absolute 0.94(H) 0.10 - 0.90 10*3/mm3 04/09/2025 4:50 AM [facility] Eosinophils, Absolute 0.07 0.00 - 0.40 [...] ORDERABLES Fi nal Result Performing Organization Address City/[facility]/ZIP Co de Phone Number [facility]
[address] [place] [address], * Heparin Anti-Xa (04/09/2025 4:18 AM EDT) Heparin Anti-Xa (UFH) 0.41 0.30 - 0.70 IU/ml 04/09/2025 4:53 AM EDT [facility] Blood Venipuncture / Unknown 04/09/2025 4:18 AM EDT 04/09/2025 4:31 AM EDT Una LundbergD LAB BLOOD ORDERABLES Final R esult [facility]
[address] [place] [address], * (ABNORMAL) Basic Metabolic Panel (04/09/2025 4:18 [...] 4:18 AM EDT 04/09/2025 4:29 AM EDT [facility]ORATORY - 04/09/2025 5:33 AM EDT [...] nal Result [facility]
[address] [place] [address], * Wound Culture - Swab, Leg, Right (04/08/2025 3:40 PM EDT) Wound Culture No growth at 3 days ALIZA 04/11/2025 10:40 AM EDT [facility] Gram Stain Few (2+) WBCs seen [...] [facility]/ZIP Co de Phone Number [facility]
[address] [place] [address], [facility]
[address] [place] [address], * Anaerobic Culture - Swab, Leg, Right (04/08/2025 3:40 PM EDT) Anaerobic Culture No anaerobes isolated at 5 days ALIZA 04/13/2025 7:24 AM EDT [facility] Swab Structure of right lower limb / Unknown 04/08/2025 3:40 PM EDT 04/08/2025 8:05 PM EDT us Sushil Dean Jr., MD MICROBIOLOGY - GENERAL ORDERABLES Final Result Performing Organization Address City/[facility]/ZIP Co de Phone Number [facility]
[address] [place] [address], * Scan Slide (04/08/2025 8:41 AM EDT) [...] Final R esult [facility]
[address] [place] [address], * (ABNORMAL) CBC Auto Differential (04/08/2025 8:41 [...] 37.0 - 54.0 fl 04/08/2025 11:02 AM [facility] MPV 11.0 6.0 - 12.0 fL 04/08/2025 11:02 AM [facility] Platelets 118(L) 140 - 450 10*3/mm3 04/08/2025 11:02 AM [facility] Neutrophil % 85.1(H) 42.7 - 76.0 % 04/08/2025 11:02 AM [facility] Lymphocyte % 9.3(L) 19.6 - 45.3 % 04/08/2025 11:02 AM [facility] Monocyte % 4.6(L) 5.0 - 12.0 % 04/08/2025 11:02 AM [facility] Eosinophil % 0.3 0.3 - 6.2 % 04/08/2025 11:02 AM [facility] Basophil % 0.2 0.0 - 1.5 % 04/08/2025 11:02 AM [facility] Immature Grans % 0.5 0.0 - 0.5 % 04/08/2025 11:02 AM [facility] Neutrophils, Absolute 8.57(H) 1.70 - 7.00 10*3/mm3 04/08/2025 11:02 AM [facility] Lymphocytes, Absolute 0.94 0.70 - 3.10 10*3/mm3 04/08/2025 11:02 AM [facility] Monocytes, Absolute 0.46 0.10 - 0.90 10*3/mm3 04/08/2025 11:02 AM [facility] Eosinophils, Absolute 0.03 0.00 - 0.40 10*3/mm3 04/08/2025 11:02 AM [facility] Basophils, Absolute 0.02 0.00 - 0.20 10*3/mm3 04/08/2025 11:02 AM [facility] Immature Grans, Absolute 0.05 0.00 - 0.05 10*3/mm3 04/08/2025 11:02 AM EDT [facility] nRBC 0.0 0.0 - 0.2 /100 WBC 04/08/2025 11:02 AM EDT [facility] Blood Venipuncture / Unknown 04/08/2025 8:41 AM EDT 04/08/2025 9:10 AM EDT Una Perla PharmD LAB BLOOD ORDERABLES Final R esult [facility]
[address] [place] [address], * (ABNORMAL) Basic Metabolic Panel (04/08/2025 8:41 [...] ORDERABLES Fi nal Result Performing Organization Address City/[facility]/ZIP Co de Phone Number [facility]
[address] [place] [address], * Heparin Anti-Xa (04/08/2025 8:41 AM EDT) Heparin Anti-Xa (UFH) 0.33 0.30 - 0.70 IU/ml 04/08/2025 9:40 AM EDT [facility] Blood Venipuncture / Unknown 04/08/2025 8:41 AM EDT 04/08/2025 9:10 AM EDT Sushil Dean Jr., MD LAB BLOOD ORDERABLES Fi nal Result Performing Organization Address City/[facility]/ZIP Co de Phone Number [facility]
[address] [place] [address], * [place] C Arm During Surgery (04/07/2025 9:32 PM EDT) Narrative SYSTEMGENERATED, DOCUMENTATION - 04/07/2025 9:38 PM EDT This procedure was auto-finalized with no dictation required. us Sushil Dean Jr., MD IMG FLUOROSCOPY ORDERAB LES Final Result * Wound Culture - Swab, Leg, Right (04/07/2025 9:14 PM EDT) Wound Culture No growth at 3 days ALIZA 04/11/2025 10:40 AM EDT [facility] Gram Stain Occasional WBCs seen 04/11/2025 [...] [facility]/ZIP Co de Phone Number [facility]
[address] [place] [address], [place] [phone] [facility]
[address] [place] [address], [place] [phone] * Anaerobic Culture - Swab, Leg, Right (04/07/2025 9:14 PM EDT) Anaerobic Culture No anaerobes isolated at 5 days ALIZA 04/13/2025 7:21 AM EDT [facility] Swab Structure of right lower limb / Unknown Collection / Unknown 04/07/2025 9:14 PM EDT 04/08/2025 4:36 AM EDT us Sushil Dean Jr., MD MICROBIOLOGY - GENERAL ORDERABLES Final Result [facility]
[address] [place] [address], * Anaerobic Culture - Tissue, Leg (04/07/2025 9:13 PM EDT) Anaerobic Culture No anaerobes isolated at 5 days ALIZA 04/13/2025 7:21 AM EDT [facility] Tissue Lower limb structure / Unknown Collection / Unknown 04/07/2025 9:13 PM EDT 04/08/2025 4:54 AM EDT Jason Álvarez DO MICROBIOLOGY - GENERAL ORDERABLE S Final Result Performing Organization Address [facility]/State/ZIP Co de Phone Number [facility]
[address] [place] [address], * Tissue / Bone Culture - Tissue, Leg, Right (04/07/2025 9:13 PM EDT) Tissue Culture No growth at 3 days ALIZA 04/11/2025 10:36 AM EDT [facility] Gram Stain Rare (1+) WBCs seen 04/11/2025 10:36 AM EDT [facility] Gram Stain No organisms seen 04/11/2025 10:36 AM EDT [facility] Tissue Structure of right lower limb / Unknown 04/07/2025 9:13 PM EDT 04/08/2025 4:54 AM EDT Sushil Dean Jr., MD MICROBIOLOGY - GENERAL ORDERABLES Final Result [facility]
[address] [place] [address], [facility]
[address] [place] [address], [place] [phone] * (ABNORMAL) Wound Culture - Swab, Leg, Right (04/07/2025 9:07 PM EDT) Wound Culture Light growth (2+) Staphylococcus aureus, MRSA(A) ALIZA 04/10/2025 10:38 AM EDT [facility] Comment: Methicillin resistant Staphylococcus aureus, Patient [...] MD MICROBIOLOGY - GENERAL ORDERABLES Final Result [facility]
[address] [place] [address], [place] [phone] [facility]
[address] [place] [address], [place] [phone] * Anaerobic Culture - Swab, Leg, Right (04/07/2025 9:07 PM EDT) Anaerobic Culture No anaerobes isolated at 5 days ALIZA 04/13/2025 7:21 AM EDT [facility] Swab Structure of right lower limb / Unknown Collection / Unknown 04/07/2025 9:07 PM EDT 04/08/2025 4:36 AM EDT us Sushil Dean Jr., MD MICROBIOLOGY - GENERAL ORDERABLES Final Result [facility]
[address] [place] [address], * Heparin Anti-Xa (04/07/2025 9:10 AM EDT) Pathologist [facility] Heparin Anti-Xa (UFH) 0.30 0.30 - 0.70 IU/ml 04/07/2025 10:12 AM EDT [facility] Blood Venipuncture / Unknown 04/07/2025 9:10 AM EDT 04/07/2025 9:38 AM EDT Una Perla PharmD LAB BLOOD ORDERABLES Final R esult Performing Organization Address City/[facility]/ZIP Co de Phone Number [facility]
[address] [place] [address], * (ABNORMAL) CBC Auto Differential (04/07/2025 9:10 [...] 12.3 - 15.4 % 04/07/2025 9:50 AM [facility] RDW-SD 39.9 37.0 - 54.0 fl 04/07/2025 9:50 AM [facility] MPV 10.8 6.0 - 12.0 fL 04/07/2025 9:50 AM [facility] Platelets 149 140 - 450 10*3/mm3 04/07/2025 9:50 AM [facility] Neutrophil % 66.7 42.7 - 76.0 % 04/07/2025 9:50 AM [facility] Lymphocyte % 20.5 19.6 - 45.3 % 04/07/2025 9:50 AM [facility] Monocyte % 9.8 5.0 - 12.0 % 04/07/2025 9:50 AM [facility] Eosinophil % 2.1 0.3 - 6.2 % 04/07/2025 9:50 AM [facility] Basophil % 0.3 0.0 - 1.5 % 04/07/2025 9:50 AM [facility] Immature Grans % 0.6(H) 0.0 - 0.5 % 04/07/2025 9:50 AM [facility] Neutrophils, Absolute 5.75 1.70 - 7.00 10*3/mm3 04/07/2025 9:50 AM [facility] Lymphocytes, Absolute 1.77 0.70 - 3.10 10*3/mm3 04/07/2025 9:50 AM [facility] Monocytes, Absolute 0.85 0.10 - 0.90 10*3/mm3 04/07/2025 9:50 AM [facility] Eosinophils, Absolute 0.18 0.00 - 0.40 10*3/mm3 04/07/2025 9:50 AM [facility] Basophils, Absolute 0.03 0.00 - 0.20 10*3/mm3 04/07/2025 9:50 AM [facility] Immature Grans, Absolute 0.05 0.00 - 0.05 10*3/mm3 04/07/2025 9:50 AM EDT [facility] nRBC 0.0 0.0 - 0.2 /100 WBC 04/07/2025 9:50 AM EDT [facility] Blood Venipuncture / Unknown 04/07/2025 9:10 AM EDT 04/07/2025 9:38 AM EDT us Jason Álvarez DO LAB BLOOD ORDERABLES Final Resul t [facility]
[address] [place] [address], * (ABNORMAL) Basic Metabolic Panel (04/07/2025 9:10 [...] Final Resul t [facility]
[address] [place] [address], * MRI Tibia Fibula Right With & [...] [place] 04/07/2025 9:58 AM EDT Workstation ID: [id number] Narrative 04/07/2025 9:58 AM EDT MRI TIBIA [...] [place] 04/07/2025 9:58 AM EDT Workstation ID: [id number] Sushil Dean Jr., MD IMG MRI ORDERABLES Mary Beth l Result * Heparin Anti-Xa (04/07/2025 1:42 AM EDT) [facility] Heparin Anti-Xa (UFH) 0.38 0.30 - 0.70 IU/ml 04/07/2025 2:14 AM EDT [facility] Blood Venipuncture / Unknown 04/07/2025 1:42 AM EDT 04/07/2025 1:54 AM EDT Chelsie Turpin [facility] LAB BLOOD ORDERABLES Final R esult [facility]
[address] [place] [address], * Heparin Anti-Xa (04/06/2025 7:16 PM EDT) [facility] Heparin Anti-Xa (UFH) 0.33 0.30 - 0.70 IU/ml 04/06/2025 7:50 PM EDT [facility] Blood Venipuncture / Unknown 04/06/2025 7:16 PM EDT 04/06/2025 7:35 PM EDT Cherri Beatty [facility] LAB BLOOD ORDERABLES Final Res ult Performing Organization Address [facility] Co de Phone Number [facility]
[address] [place] [address], * Potassium (04/06/2025 7:16 PM EDT) [facility] Potassium 4.0 3.5 - 5.2 mmol/L 04/06/2025 7:53 PM EDT [facility] Blood Venipuncture / Unknown 04/06/2025 7:16 PM EDT 04/06/2025 7:35 PM EDT Jason Álvarez DO LAB BLOOD ORDERABLES Final Resul t Performing Organization Address [facility] de Phone Number [facility]
[address] [place] [address], * (ABNORMAL) Heparin Anti-Xa (04/06/2025 12:36 PM EDT) [facility] Heparin Anti-Xa (UFH) 0.24(L) 0.30 - 0.70 IU/ml 04/06/2025 1:23 PM EDT [facility] Blood Venipuncture / Unknown 04/06/2025 12:36 PM EDT 04/06/2025 1:07 PM EDT Una Perla PharmD LAB BLOOD ORDERABLES Final R esult Performing Organization Address [facility] Co de Phone Number [facility]
[address] [place] [address], * (ABNORMAL) Heparin Anti-Xa (04/06/2025 3:42 AM EDT) [facility] Heparin Anti-Xa (UFH) 0.25(L) 0.30 - 0.70 IU/ml 04/06/2025 5:30 AM EDT [facility] Blood Venipuncture / Unknown 04/06/2025 3:42 AM EDT 04/06/2025 4:59 AM EDT Chelsie Dyana [facility] LAB BLOOD ORDERABLES Final R esult [facility]
[address] [place] [address], * (ABNORMAL) Basic Metabolic Panel (04/06/2025 3:42 AM EDT) [facility] Glucose 94 65 - 99 [...] 3:42 AM EDT 04/06/2025 5:20 AM EDT [facility] - 04/06/2025 5:59 AM EDT [...] Final Resul t [facility]
[address] [place] [address], * (ABNORMAL) CBC Auto Differential (04/06/2025 3:41 [...] 26.6 - 33.0 pg 04/06/2025 5:04 AM [facility] MCHC 31.8 31.5 - 35.7 g/dL 04/06/2025 5:04 AM [facility] RDW 12.8 12.3 - 15.4 % 04/06/2025 5:04 AM [facility] RDW-SD 40.0 37.0 - 54.0 fl 04/06/2025 5:04 AM [facility] MPV 11.7 6.0 - 12.0 fL 04/06/2025 5:04 AM [facility] Platelets 115(L) 140 - 450 10*3/mm3 04/06/2025 5:04 AM [facility] Neutrophil % 65.3 42.7 - 76.0 % 04/06/2025 5:04 AM [facility] Lymphocyte % 20.5 19.6 - 45.3 % 04/06/2025 5:04 AM [facility] Monocyte % 11.8 5.0 - 12.0 % 04/06/2025 5:04 AM [facility] Eosinophil % 1.8 0.3 - 6.2 % 04/06/2025 5:04 AM [facility] Basophil % 0.3 0.0 - 1.5 % 04/[facility]25 [facility] Immature Grans % 0.3 0.0 - 0.5 % 04/06/2025 5:04 AM [facility] Neutrophils, Absolute 7.09(H) 1.70 - 7.00 [...] t Performing Organization Address City/[facility]/[place] Co de Phone Number [facility]
[address] [place] [address], [place] [phone] * Heparin Anti-Xa (04/05/2025 8:43 PM EDT) Pathologist [facility] Heparin Anti-Xa (UFH) 0.38 0.30 - 0.70 IU/ml 04/05/2025 9:09 PM EDT [facility] Blood Venipuncture / Unknown 04/05/2025 8:43 PM EDT 04/05/2025 8:55 PM EDT us Cherri Beatty [facility] LAB BLOOD ORDERABLES Final Res ult Performing Organization Address City/[facility]/[place] Co de Phone Number [facility]
[address] [place] [address], [place] [phone] * CK (04/05/2025 12:15 PM EDT) Creatine Kinase 140 20 - 200 U/L 04/05/2025 1:31 PM EDT [facility] Blood Venipuncture / Unknown 04/05/2025 12:15 PM EDT 04/05/2025 1:03 PM EDT Carlton Mead MD LAB BLOOD ORDERABLES Final R esult Performing Organization Address City/[facility]/ZIP Co de Phone Number [facility]
[address] [place] [address], * (ABNORMAL) Heparin Anti-Xa (04/05/2025 12:15 PM EDT) [facility] Heparin Anti-Xa (UFH) 0.17(L) 0.30 - 0.70 IU/ml 04/05/2025 1:21 PM EDT [facility] Blood Venipuncture / Unknown 04/05/2025 12:15 PM EDT 04/05/2025 1:04 PM EDT Una Perla PharmD LAB BLOOD ORDERABLES Final R esult Performing Organization Address City/[facility] Co de Phone Number [facility]
[address] [place] [address], * (ABNORMAL) aPTT (04/05/2025 3:54 AM EDT) [facility] PTT 35.3(L) 60.0 - 90.0 seconds 04/05/2025 4:31 AM EDT [facility] Blood Venipuncture / Unknown 04/05/2025 3:54 AM EDT 04/05/2025 4:15 AM EDT Narrative [facility] - 04/05/2025 4:31 AM EDT PTT = The equivalent PTT values for the therapeutic range of heparin levels at 0.3 to 0.5 U/ml are 60 to 70 seconds. [employer] LAB BLOOD ORDERABLES Final R esult [facility]
[address] [place] [address], * Heparin Anti-Xa (04/05/2025 3:54 AM EDT) Pathologist [facility] Heparin Anti-Xa (UFH) 0.30 0.30 - 0.70 IU/ml 04/05/2025 4:32 AM EDT [facility] Blood Venipuncture / Unknown 04/05/2025 3:54 AM EDT 04/05/2025 4:15 AM EDT [employer] LAB BLOOD ORDERABLES Final R esult Performing Organization Address City/[facility]/ZIP Co de Phone Number [facility]
[address] [place] [address], * (ABNORMAL) CBC Auto Differential (04/05/2025 3:54 AM EDT) [facility] WBC 11.18(H) 3.40 - 10.80 [...] 31.5 - 35.7 g/dL 04/05/2025 4:20 AM [facility] RDW 12.9 12.3 - 15.4 % 04/05/2025 4:20 AM [facility] RDW-SD 39.7 37.0 - 54.0 fl 04/05/2025 4:20 AM [facility] MPV 10.2 6.0 - 12.0 fL 04/05/2025 4:20 AM [facility] Platelets 160 140 - 450 10*3/mm3 04/05/2025 4:20 AM [facility] Neutrophil % 73.5 42.7 - 76.0 % 04/05/2025 4:20 AM [facility] Lymphocyte % 14.0(L) 19.6 - 45.3 % 04/05/2025 4:20 AM [facility] Monocyte % 11.0 5.0 - 12.0 % 04/05/2025 4:20 AM [facility] Eosinophil % 0.8 0.3 - 6.2 % 04/05/2025 4:20 AM [facility] Basophil % 0.3 0.0 - 1.5 % 04/05/2025 4:20 AM [facility] Immature Grans % 0.4 0.0 - 0.5 % 04/05/2025 4:20 AM [facility] Neutrophils, Absolute 8.23(H) 1.70 - 7.00 10*3/mm3 04/05/2025 4:20 AM [facility] Lymphocytes, Absolute 1.56 0.70 - 3.10 10*3/mm3 04/05/2025 4:20 AM [facility] Monocytes, Absolute 1.23(H) 0.10 - 0.90 10*3/mm3 04/05/2025 4:20 AM [facility] Eosinophils, Absolute 0.09 0.00 - 0.40 10*3/mm3 04/05/2025 4:20 AM [facility] Basophils, Absolute 0.03 0.00 - 0.20 [...] Final R esult [facility]
[address] [place] [address], * (ABNORMAL) Basic Metabolic Panel (04/05/2025 3:54 [...] 3 04/05/2025 4:40 AM EDT [facility] Blood Venipuncture / Unknown 04/05/2025 3:54 AM EDT 04/05/2025 4:15 AM EDT [facility] - 04/05/2025 4:40 AM EDT [...] BLOOD ORDERABLES Final Re sult [facility]
[address] [place] [address], * (ABNORMAL) aPTT (04/05/2025 12:18 AM EDT) PTT 33.6(L) 60.0 - 90.0 seconds 04/05/2025 12:53 AM EDT [facility] Blood Venipuncture / Unknown 04/05/2025 12:18 AM EDT 04/05/2025 12:37 AM EDT [facility] - 04/05/2025 12:53 AM EDT PTT = The equivalent PTT values for the therapeutic range of heparin levels at 0.3 to 0.5 U/ml are 60 to 70 seconds. [employer] LAB BLOOD ORDERABLES Final R esult [facility]
[address] [place] [address], [place] [phone] * (ABNORMAL) Protime-INR (04/05/2025 12:18 AM EDT) Protime 15.9(H) 12.2 - 15.3 Seconds 04/05/2025 12:53 AM EDT [facility] INR 1.19(H) 0.89 - 1.12 04/05/2025 12:53 AM EDT [facility] Blood Venipuncture / Unknown 04/05/2025 12:18 AM EDT 04/05/2025 12:37 AM EDT [employer] LAB BLOOD ORDERABLES Final R esult Performing Organization Address [facility]/[place] Co de Phone Number [facility]
[address] [place] [address], [place] [phone] * Heparin Anti-Xa (04/05/2025 12:18 AM EDT) Pathologist [facility] Heparin Anti-Xa (UFH) 0.39 0.30 - 0.70 IU/ml 04/05/2025 12:54 AM EDT [facility] Blood Venipuncture / Unknown 04/05/2025 12:18 AM EDT 04/05/2025 12:37 AM EDT [employer] LAB BLOOD ORDERABLES Final R esult Performing Organization Address City/[facility]/ZIP Co de Phone Number [facility]
[address] [place] [address], [place] [phone] * MRI Tibia Fibula Right With & [...] MD 04/04/2025 11:00 PM EDT Workstation ID: [id number] Narrative 04/04/2025 11:00 PM EDT MRI TIBIA [...] MD 04/04/2025 11:00 PM EDT Workstation ID: [id number] Leonora Shepherd MD IMG MRI ORDERABLES Final Resu lt * POC Creatinine (04/04/2025 2:49 PM EDT) Creatinine 1.10 0.60 - 1.30 mg/dL 04/07/2025 7:14 PM EDT [facility] Comment:Serial Number: [id number] 7Operator: [id number] Venous Blood 04/04/2025 2:49 PM EDT 04/07/2025 7:14 PM EDT Jason Álvarez DO POINT OF CARE TEST ORDERABLES Fi nal Result [facility]
[address] [place] [address], [place] [phone] * (ABNORMAL) CBC Auto Differential (04/04/2025 2:47 PM EDT) [facility] Signature WBC 12.72(H) 3.40 - 10.80 10*3/mm3 [...] Fin al Result [facility]
[address] [place] [address], * (ABNORMAL) C-reactive Protein (04/04/2025 2:47 PM EDT) Pathologist [facility] C-Reactive Protein 8.57(H) 0.00 - 0.50 mg/dL 04/04/2025 3:26 PM EDT [facility] Blood Venipuncture / Unknown 04/04/2025 2:47 PM EDT 04/04/2025 2:52 PM EDT Mario Ortiz Keo LAB BLOOD ORDERABLES Fin al Result [facility]
[address] [place] [address], * (ABNORMAL) Sedimentation Rate (04/04/2025 2:47 PM EDT) [facility] Sed Rate 51(H) 0 - 15 mm/hr 04/04/2025 3:06 PM EDT [facility] Blood Venipuncture / Unknown 04/04/2025 2:47 PM EDT 04/04/2025 2:52 PM EDT Mario Ortiz Keo LAB BLOOD ORDERABLES Fin al Result Performing Organization Address City/[facility]/ZIP Co de Phone Number [facility]
[address] [place] [address], * Comprehensive Metabolic Panel (04/04/2025 2:47 PM EDT) [facility] Glucose 90 65 - 99 [...] U/L 04/04/2025 3:26 PM T [facility] Total Bilirubin 1.0 0.0 - 1.2 mg/dL 04/04/2025 3:26 PM EDT [facility] Globulin 3.2 gm/dL 04/04/2025 3:26 PM T [facility] Comment:Calculated Result A/G Ratio 1.3 g/dL 04/04/2025 3:26 PM EDT [facility] BUN/Creatinine Ratio 19.5 7.0 - 25.0 04/04/2025 3:26 PM T [facility] Anion Gap 10.7 5.0 - 15.0 mmol/L 04/04/2025 3:26 PM T [facility] eGFR 102.5 >60.0 mL/min/1.7 3 04/04/2025 3:26 PM [facility] Blood Venipuncture / Unknown 04/04/2025 2:47 [...] Fin al Result [facility]
[address] [place] [address], documented in this encounter Visit Diagnoses Diagnosis [...] Avoid grapefruit juice. 2026 (Given - Provider: lAberto Dillon RN) 2030 (Given - Provider: Alberto [...] Salazar, KELL)1943 (Given - Provider: Anahy Marcelino, CHIEF ENTERPRISE ARCHITECT)2129 (Canceled Entry - Provider: Anahy Marcelino CHIEF ENTERPRISE ARCHITECT - Comment: previously given) 0837 (Given [...] medication prescribed for a lower pain scale. ([facility]) If given for pain, use the following [...] Continuous Medication Order 04/09/2025 04/10/2025 04/11/2025 heparin 93092 units/250 mL (100 units/mL) in 0.45 % [...] documented as of this encounter Care Teams Holter Technician Relationship Specialty Start Date End Date Provider, [place] [address] PCP - General 05/09/23 documented as of this encounter
--- OUTSIDE RECORDS SUMMARY | 2025-04-08 15:34 | XMS_ITS | Encounter Summary ---
Author Organization [facility] Address [address] [place] [address] Care Team Providers Care Specialist Physicians Name Role Phone Provider, No Known Primary Care Provider Unavail able Reason for Visit * Auth/Cert Specialty Diagnoses / Procedures Referred By Bulmaro muniz Referred To Contact Diagnoses Right BKA infection Referral ID Status Reason Start Date Expiration Date Visits Re quested Visits Authorized [id number] 1 1 Encounter Details Date Type Department Care Team (Late st Contact Info) Description 04/08/2025 3:34 PM EDT Anesthesia Event [facility] OR [address] [place] [address] Ulises Hoffman MD [address] [place] [address] Jairo Brooks MD [address] [place] [address] Anesthesia Record Procedure Summary Procedure Name Responsible [...] drink = 0.6 oz pur e alcohol) [facility] Utilities Answer Date Recorded In the past 12 months has [employer], oil, or water [employer] threatened to shut off services in your [...] 04/08/25 Room / Location: [facility] OR [address] [place] [address] [facility] [place] Anesthesia Start: 1533 Anesthesia Stop: [...] ROS Abdominal Substance History - negative use 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
--- OUTSIDE RECORDS SUMMARY | 2025-05-08 09:26 | XMS_ITS | Clinical Summary ---
Author Organization [facility] Address [address] [facility] [address] [place] [address] Phone Care Team Providers Care Painter Set Name Role Phone Unavailable Unavailable Conditions or Problems No information available. Medications No information available. Medications Administered No information available. Allergies, Adverse Reactions, Alerts No information available. Results No information available. Plan of Care No information available. Procedures No information available. Vital Signs No information available. Immunizations No information available. Advance Directives No information available.
--- OUTSIDE RECORDS SUMMARY | 2025-05-08 09:26 | XMS_ITS | Patient Health Record ---
[facility] [address] [address] [place] [id number] Care Team Providers Care Electric Container Tester Name Role Phone Zeeshan Salazar Primary Care [...] W/U Status Risk Notes Problem Essential hypertension (76529663) HTN [Hypertension] (401.9) Active confirmed appears resolved Problem Hypothyroidism (65796938) Hypothyroidism NOS (244.9) Active confirmed Problem Hyperlipidemia (19815240) Hyperlipidemia (272.4) Active confirmed Problem Constipation (59447578) Constipation, unspecified constipation type (K59.00) Active confirmed Problem History of pulmonary embolism on long-term anticoagulation therapy (53348841820967111 ) Hx pulmonary embolism (Z86.711) Active confirmed Problem Long-term current use of anticoagulant (798427312) 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 use of pc maintenance technician anticoagulation (Z79.01) Active confirmed Problem Adjustment disorder with anxious mood (75634214) Adjustment disorder with anxious mood (F43.22) Active confirmed Problem History of pulmonary embolus (809250632) History of pulmonary embolus (PE) (Z86.711) Active confirmed Problem Methicillin resistant Staphylococcus aureus infection (disorder) (394381190) Infection of wound due to methicillin resistant Staphylococcus aureus (MRSA) (A49.02) Active confirmed Problem Arthritis of knee (284788309) Arthritis of knee (M17.10) Active confirmed Problem Amputated below knee (109760626) 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
[2025-05-08 09:31] VITALS: BP 115/61; PULSE 71; RESP 18; TEMP 36.6; O2SAT 95
[2025-05-08] MEDS: DAPTOmycin 1,000 MG in 0.9 % SODIUM CHLORIDE 50 ML 100 MG IV (09:31)
--- OUTSIDE RECORDS SUMMARY | 2025-05-08 09:31 | XMS_ITS | Encounter Summary ---
Author Organization [facility] Address [address] [place] [address] Care Team Providers Care Indigo Vat Tender Cloth Name Role Phone Unavailable Primary Care Provider Unavailabl e Encounter Details Date Type Department Care Team (Late st Contact Info) Description 10/03/2022 Lab Requisition [facility] [address] [place] [address] Dalila Cox MD [address] [place], [place] [id number] Encounter for general adult medical examination without [...] Culture Neelima albicans(A) 10/05/2022 11:58 AM EDT [facility] Comment: This result was determined by MALDI tof Mass spectrometry. This assay was developed and its performance characteristics determined by [facility] as appropriate for clinical purposes. This assay has not been cleared or approved by the FDA, but is performed in a CLIA regulated laboratory that is qualified to perform high complexity testing. Other Specimen from wound / Unknown 09/30/2022 10:26 PM EDT 10/03/2022 11:03 AM EDT Narrative Organism Antibiotic Method Susceptibility Neeilma albicans Caspofungin ALIZA 0.03 ug/ml: Susceptible Neelima albicans Micafungin ALIZA 0.015 ug/ml: Susceptible Neelima albicans Fluconazole ALIZA 0.25 ug/ml: Susceptible Neelima albicans Voriconazole ALIZA 0.008 ug/ml: Susceptible Dalila Cox MD LAB MICROBIOLOGY - GENERAL TABBY WHYTE Edited Result - Final [facility] [address] [place] [address] documented in this encounter Visit Diagnoses Diagnosis Encounter for general adult medical examination without abnormal findings documented in this encounter
--- OUTSIDE RECORDS SUMMARY | 2025-05-08 09:31 | XMS_ITS | Clinical Summary ---
Author Organization [facility] Address [address] [place] [address] Care Team Providers Care Line Dancer Name Role Phone Provider, No Known Primary [...] Discontinue d(Stop Taking at Discharge) Lactobacillus- Inulin ([facility] [employer] [facility]) capsule Take 200 mg by mouth [...] PM EDT Anesthesia Event [facility] [place] [address] [place] [phone] Ulises Hoffman MD Wells, Jeremy B., MD 04/08/2025 2:45 PM EDT - 04/08/2025 4:04 PM EDT Surgery [facility] OR [address] [place] [address] Sushil Dean Jr., MD LEG DEBRIDEMENT AND IRRIGATION 04/07/2025 8:36 PM EDT Anesthesia Event [facility] OR [address] [place] [address] Luci Alonso DO 04/07/2025 6:00 PM EDT - 04/07/2025 6:52 PM EDT Surgery [facility] OR [address] [place] [address] Sushil Dean Jr., MD LEG DEBRIDEMENT, IRRIGATION 04/04/2025 4:10 PM EDT - 04/11/2025 1:58 PM EDT Hospital Encounter [facility] 5G [address] [place] [address] Mario Crowley DO Anderson, Laurie, [...] e alcohol) [facility] Utilities Answer Date Recorded In the past 12 months has XO1, gas, oil, or water [place] threatened to shut off services in your [...] or training? Not on file Preferred Language Swazi 04/07/2025 Sex and Gender Information Value Date [...] this topic Medical Devices Implanted Type Area Channel Account Manager Device Identifier Shelf Expiration Date Model / Serial / Lot Dev Wnd/Cls Contrl Tiss [employer]ata[employer] Spiral Pls Pds Ct1 0 22cm - [id number] Implanted:Qty: 1 on 04/08/2025 by Sushil Dean Jr., MD at [facility] Implant Right: Leg [employer] 12/07/2025 [id number] / / [id number] Procedures Procedure Name Priority [...] 3:4 0 PM EDT Right BKA infection IL SEC ABDOMINAL WALL SUTURE EVISCERATION/DEHSN 04/08/2025 3:20 [...] 04/11/2025 4:02 AM EDT [facility] RBC 4.70 4.14 - 5.80 10*6/mm3 04/11/2025 4:02 AM EDT [facility] Hemoglobin 12.8(L) 13.0 - 17.7 g/dL 04/11/2025 4:02 AM EDT [facility] Hematocrit 40.5 37.5 - 51.0 % 04/11/2025 4:02 AM EDT [facility] MCV 86.2 79.0 - 97.0 fL 04/11/2025 4:02 AM EDT [facility] MCH 27.2 26.6 - 33.0 pg 04/11/2025 4:02 AM EDT [facility] MCHC 31.6 31.5 - 35.7 g/dL 04/11/2025 4:02 AM EDT [facility] RDW 12.9 12.3 - 15.4 % 04/11/2025 4:02 AM EDT [facility] RDW-SD 40.5 37.0 - 54.0 fl 04/11/2025 4:02 AM EDT [facility] MPV 9.2 6.0 - 12.0 fL 04/11/2025 4:02 AM EDT [facility] Platelets 267 140 - 450 10*3/mm3 04/11/2025 4:02 AM EDT [facility] Neutrophil % 59.5 42.7 - 76.0 % 04/11/2025 4:02 AM EDT [facility] Lymphocyte % 26.3 19.6 - 45.3 % 04/11/2025 4:02 AM EDT [facility] Monocyte % 9.3 5.0 - 12.0 % 04/11/2025 4:02 AM [facility] Eosinophil % 4.1 0.3 - 6.2 % 04/11/2025 4:02 AM EDT [facility] Basophil % 0.4 0.0 - 1.5 % 04/[facility] Immature Grans % 0.4 0.0 - 0.5 % 04/11/2025 4:02 AM [facility] Neutrophils, Absolute 4.69 1.70 - 7.00 10*3/mm3 04/11/2025 4:02 AM [facility] Lymphocytes, Absolute 2.07 0.70 - 3.10 10*3/mm3 04/11/2025 4:02 AM [facility] Monocytes, Absolute 0.73 0.10 - 0.90 10*3/mm3 04/11/2025 4:02 AM [facility] Eosinophils, Absolute 0.32 0.00 - 0.40 10*3/mm3 04/11/2025 4:02 AM [facility] Basophils, Absolute 0.03 0.00 - 0.20 10*3/mm3 04/11/2025 4:02 AM [facility] Immature Grans, Absolute 0.03 0.00 - 0.05 10*3/mm3 04/11/2025 4:02 AM [facility] nRBC 0.0 0.0 - 0.2 /100 WBC 04/11/2025 4:02 AM [facility] Blood Venipuncture / Unknown 04/11/2025 3:40 AM EDT 04/11/2025 3:59 AM EDT Sushil Dean Jr., MD LAB BLOOD ORDERABLES Fi nal Result [facility]
[address] [place] [address], * (ABNORMAL) Comprehensive Metabolic Panel (04/11/2025 3:40 AM EDT) Only the most recent of2 resultswithin the time period is included. Glucose 108(H) 65 - 99 mg/dL 04/11/2025 4:19 AM EDT [facility] BUN 12.5 6.0 - 20.0 mg/dL 04/11/2025 4:19 AM EDT [facility] Creatinine 0.68(L) 0.76 - 1.27 mg/dL 04/11/2025 4:19 AM EDT [facility] Sodium 140 136 - 145 mmol/L 04/11/2025 4:19 AM EDT [facility] Potassium 3.8 3.5 - 5.2 mmol/L 04/11/2025 4:19 AM EDT [facility] Chloride 105 98 - 107 mmol/L 04/11/2025 4:19 AM EDT [facility] CO2 28.2 22.0 - 29.0 mmol/L 04/11/2025 4:19 AM EDT [facility] Calcium 8.2(L) 8.6 - 10.5 mg/dL 04/11/2025 4:19 AM EDT [facility] Total Protein 6.1 6.0 - 8.5 g/dL 04/11/2025 4:19 AM EDT [facility] Albumin 3.1(L) 3.5 - 5.2 g/dL 04/11/2025 4:19 AM EDT [facility] ALT (SGPT) 52(H) 1 - 41 U/L 04/11/2025 4:19 AM EDT [facility] AST (SGOT) 40 1 - 40 U/L 04/11/2025 4:19 AM EDT [facility] Alkaline Phosphatase 99 39 - 117 U/L 04/11/2025 4:19 AM EDT [facility] Total Bilirubin 0.2 0.0 - 1.2 mg/dL 04/11/2025 4:19 AM EDT [facility] Globulin 3.0 gm/dL 04/11/2025 4:19 AM EDT [facility] Comment:Calculated Result A/G Ratio 1.0 g/dL 04/11/2025 4:19 AM EDT [facility] BUN/Creatinine Ratio 18.4 7.0 - 25.0 04/11/2025 4:19 AM EDT [facility] Anion Gap 6.8 5.0 - 15.0 mmol/L 04/11/2025 4:19 AM EDT [facility] eGFR 117.5 >60.0 mL/min/1.7 3 04/11/2025 4:19 AM EDT [facility] Blood [...] race as a factor us Rosario Hill HYDRAULIC OPERATOR LAB BLOOD ORDERABLES Final Result [facility]
[address] [id number], * Heparin Anti-Xa (04/10/2025 3:46 AM EDT) Only the most recent of13 resultswithin the time period is included. Heparin Anti-Xa ([facility]) 0.35 0.30 - 0.70 IU/ml 04/10/2025 4:23 AM EDT [facility] Blood Venipuncture / Unknown 04/10/2025 3:46 AM EDT 04/10/2025 3:53 AM EDT Larisa Hamilton [facility] LAB BLOOD ORDERABLES Final R esult [facility]
[address] [place] [address], * (ABNORMAL) Basic Metabolic Panel (04/10/2025 3:46 AM EDT) Only the most recent of6 resultswithin the time period is included. [facility] Glucose 125(H) 65 - 99 mg/dL 04/10/2025 4:20 AM EDT [facility] BUN 15.9 6.0 - 20.0 mg/dL 04/10/2025 4:20 AM EDT [facility] Creatinine 0.77 0.76 - 1.27 mg/dL 04/10/2025 4:20 AM EDT [facility] Sodium 137 136 - 145 mmol/L 04/10/2025 4:20 AM EDT [facility] Potassium 3.9 3.5 - 5.2 mmol/L 04/10/2025 4:20 AM EDT [facility] Chloride 102 98 - 107 mmol/L 04/10/2025 4:20 AM EDT [facility] CO2 26.9 22.0 - 29.0 mmol/L 04/10/2025 4:20 AM EDT [facility] Calcium 7.9(L) 8.6 - 10.5 mg/dL 04/10/2025 4:20 AM EDT [facility] BUN/Creatinine Ratio 20.6 7.0 - 25.0 04/10/2025 4:20 AM EDT [facility] Anion Gap 8.1 5.0 - 15.0 mmol/L 04/10/2025 4:20 AM EDT [facility] eGFR 113.2 >60.0 mL/min/1.7 3 04/10/2025 4:20 AM EDT [facility] Blood Venipuncture / Unknown 04/10/2025 3:46 AM EDT 04/10/2025 3:52 AM EDT Narrative [facility] - 04/10/2025 4:20 AM EDT [...] ORDERABLES Final Resul t [facility]
[address] [place] [address], * Wound Culture - Swab, Leg, Right (04/08/2025 3:40 PM EDT) Only the most recent of3 resultswithin the time period is included. Wound Culture No growth at 3 days ALIZA 04/11/2025 10:40 AM EDT [facility] Gram Stain Few (2+) WBCs seen 04/11/2025 10:40 AM EDT [facility] Gram Stain No organisms seen 04/11/2025 10:40 AM EDT [facility] Swab Structure of right lower limb / Unknown 04/08/2025 3:40 PM EDT 04/08/2025 8:05 PM EDT Sushil Dean Jr., MD MICROBIOLOGY - GENERAL ORDERABLES Final Result Performing Organization Address City/[facility]/ZIP Co de Phone Number [facility]
[address] [place] [address], [facility]
[address] [place] [address], [place] [phone] * Anaerobic Culture - Swab, Leg, Right (04/08/2025 3:40 PM EDT) Only the most recent of4 resultswithin the time period is included. Anaerobic Culture No anaerobes isolated at 5 days ALIZA 04/13/2025 7:24 AM EDT [facility] Swab Structure of right lower limb / Unknown 04/08/2025 3:40 PM EDT 04/08/2025 8:05 PM EDT Sushil Dean Jr., MD MICROBIOLOGY - GENERAL ORDERABLES Final Result Performing Organization Address [facility] Co de Phone Number [facility]
[address] [place] [address], * Scan Slide (04/08/2025 8:41 AM EDT) RBC Morphology Normal Normal 04/08/2025 11:02 AM EDT [facility] WBC Morphology Normal Normal 04/08/2025 11:02 AM EDT [facility] Platelet Estimate Adequate Normal 04/08/2025 11:02 AM EDT [facility] Clumped Platelets Present None Seen 04/08/2025 11:02 AM EDT [facility] Blood Venipuncture / Unknown 04/08/2025 8:41 AM EDT 04/08/2025 9:10 AM EDT Una Perla PharmD LAB BLOOD ORDERABLES Final R esult Performing Organization Address City/[facility]/ZIP Co de Phone Number [facility]
[address] [place] [address], [place] [phone] * FL C Arm During Surgery (04/07/2025 9:32 PM EDT) Narrative SYSTEMGENERATED, DOCUMENTATION - 04/07/2025 9:38 PM EDT This procedure was auto-finalized with no dictation required. us Sushil Dean Jr., MD IMG FLUOROSCOPY ORDERAB LES Final Result * Tissue / Bone Culture - Tissue, Leg, Right (04/07/2025 9:13 PM EDT) Tissue Culture No growth at 3 days ALIZA 04/11/2025 10:36 AM EDT [facility] Gram Stain Rare (1+) WBCs seen 04/11/2025 10:36 AM EDT [facility] Gram Stain No organisms seen 04/11/2025 10:36 AM EDT [facility] Tissue Structure of right lower limb / Unknown 04/07/2025 9:13 PM EDT 04/08/2025 4:54 AM EDT us Sushil Dean Jr., MD MICROBIOLOGY - GENERAL ORDERABLES Final Result [facility]
[address] [place] [address], [facility]
[address] [place] [address], * BH AN ETT AIRWAY (04/07/2025 8:44 [...] [place] 04/07/2025 9:58 AM EDT Workstation ID: [id number] Narrative 04/07/2025 9:58 AM EDT MRI TIBIA [...] [place] 04/07/2025 9:58 AM EDT Workstation ID: [id number] Sushil Dean Jr., MD IMG MRI ORDERABLES Mary Beth l Result * Potassium (04/06/2025 7:16 PM EDT) Potassium 4.0 3.5 - 5.2 mmol/L 04/06/2025 7:53 PM EDT [facility] Blood Venipuncture / Unknown 04/06/2025 7:16 PM EDT 04/06/2025 7:35 PM EDT Jason Álvarez DO LAB BLOOD ORDERABLES Final Resul t Performing Organization Address City/[facility]/ZIP Co de Phone Number [facility]
[address] [place] [address], * CK (04/05/2025 12:15 PM EDT) Creatine Kinase 140 20 - 200 U/L 04/05/2025 1:31 PM EDT [facility] Blood Venipuncture / Unknown 04/05/2025 12:15 PM EDT 04/05/2025 1:03 PM EDT Carlton Mead MD LAB BLOOD ORDERABLES Final R esult Performing Organization Address City/[facility]/ZIP Co de Phone Number [facility]
[address] [place] [address], * (ABNORMAL) aPTT (04/05/2025 3:54 AM EDT) Only the most recent of2 resultswithin the time period is included. PTT 35.3(L) 60.0 - 90.0 seconds 04/05/2025 4:31 AM EDT [facility] Blood Venipuncture / Unknown 04/05/2025 3:54 AM EDT 04/05/2025 4:15 AM EDT Narrative [facility] - 04/05/2025 4:31 AM EDT PTT = The equivalent PTT values for the therapeutic range of heparin levels at 0.3 to 0.5 U/ml are 60 to 70 seconds. SudikshaD LAB BLOOD ORDERABLES Final R esult Performing Organization Address City/[facility]/ZIP Co de Phone Number [facility]
[address] [place] [address], * (ABNORMAL) Protime-INR (04/05/2025 12:18 AM EDT) Pathologist [facility] Protime 15.9(H) 12.2 - 15.3 Seconds 04/05/2025 12:53 AM EDT [facility] INR 1.19(H) 0.89 - 1.12 04/05/2025 12:53 AM EDT [facility] Blood Venipuncture / Unknown 04/05/2025 12:18 AM EDT 04/05/2025 12:37 AM EDT Eastide PharmD LAB BLOOD ORDERABLES Final R esult Performing Organization Address City/[facility]/ZIP Co de Phone Number [facility]
[address] [place] [address], * POC Creatinine (04/04/2025 2:49 PM EDT) Pathologist [facility] Creatinine 1.10 0.60 - 1.30 mg/dL 04/07/2025 7:14 PM EDT [facility] Comment:Serial Number: [id number] Venous Blood 04/04/2025 2:49 PM EDT 04/07/2025 7:14 PM EDT Jason Álvarez DO POINT OF CARE TEST ORDERABLES Fi nal Result Performing Organization Address [facility] Co de Phone Number [facility]
[address] [place] [address], * (ABNORMAL) Sedimentation Rate (04/04/2025 2:47 PM EDT) Sed Rate 51(H) 0 - 15 mm/hr 04/04/2025 3:06 PM EDT [facility] Blood Venipuncture / Unknown 04/04/2025 2:47 PM EDT 04/04/2025 2:52 PM EDT Mario Crowley LAB BLOOD ORDERABLES Fin al Result Performing Organization Address [facility] de Phone Number [facility]
[address] [place] [address], * (ABNORMAL) C-reactive Protein (04/04/2025 2:47 PM EDT) C-Reactive Protein 8.57(H) 0.00 - 0.50 mg/dL 04/04/2025 3:26 PM EDT [facility] Blood Venipuncture / Unknown 04/04/2025 2:47 PM EDT 04/04/2025 2:52 PM EDT Mario Crowley DO LAB BLOOD ORDERABLES Fin al Result Performing Organization Address [facility] Co de Phone Number [facility]
[address] [place] [address], from Last 3 Months Additional Health Concerns [...] Of Support Discussed With: Patient Care Teams Line Dancer Relationship Specialty Start Date End Date Provider, No Known [facility] [place] [address] PCP - General 05/09/23
--- OUTSIDE RECORDS SUMMARY | 2025-05-08 09:31 | XMS_ITS | Encounter Summary ---
Author Organization Healthcare Address [address] [place] [address] Care Team Providers Care Transmitter Engineer Name Role Phone Unavailable Primary Care Provider Unavailabl e Encounter Details Date Type Department Care Team (Late st Contact Info) Description 05/13/2023 Lab Requisition [facility] [address] [place] [address] Sushil Dean MD [address] [facility] [place] [address] Encounter for general adult medical examination without [...] Final Result Performing Organization Address [facility] Co de Phone Number [facility] [address] [place] [address] * Anaerobic Culture (05/13/2023 9:17 AM EDT) Culture No growth at day 4 05/20/2023 10:35 AM EST [facility] Bone 05/13/2023 9:17 AM EDT 05/13/2023 1:25 PM EDT us Sushil Dean MD LAB MICROBIOLOGY - GENERAL O RDERABLES Final Result Performing Organization Address [facility] de Phone Number [facility] [address] [place] [address] * Bone Culture and Gram Stain (05/13/2023 [...] Final Result Performing Organization Address [facility] de Phone Number [facility] [address] [place] [address] documented in this encounter Visit Diagnoses Diagnosis Encounter for general adult medical examination without abnormal findings documented in this encounter
--- OUTSIDE RECORDS SUMMARY | 2025-05-08 09:31 | XMS_ITS | Encounter Summary ---
Author Organization Healthcare Address [address] [place] [address] Care Team Providers Care Driver/Merchandiser Name Role Phone Unavailable Primary Care Provider Unavailabl e Encounter Details Date Type Department Care Team (Late st Contact Info) Description 07/20/2022 Lab Requisition [facility] [address] [place] [address] Sushil Dean MD [address] [place] [address] Encounter for general adult medical examination without [...] at day 4 07/27/2022 11:32 AM EST [facility] Bone Specimen from bone / Unknown 07/20/2022 1:36 PM EST 07/20/2022 5:52 PM EST us Sushil Dean MD LAB MICROBIOLOGY - GENERAL O RDERABLES Final Result Performing Organization Address City/[facility] Co de Phone Number [facility]ALTH[facility] [address] [place] [address] * Bone Culture and Gram Stain (07/20/2022 1:36 PM EST) Culture No growth at day 4 2022 9:16 AM EST [facility] Gram Stain Result Rare Polymorphonuclear leukocytes 07/24/2022 9:16 AM EST [facility] Gram Stain Result No organisms seen 07/24/2022 9:16 AM EST [facility] Bone Specimen from bone / Unknown 07/20/2022 1:36 PM EST 07/20/2022 5:52 PM EST us Sushil Dean MD LAB MICROBIOLOGY - GENERAL O RDERABLES Final Result Performing Organization Address City/[facility] [address] [facility] Co de Phone Number [facility] [address] [place] [address] documented in this encounter Visit Diagnoses Diagnosis Encounter for general adult medical examination without abnormal findings documented in this encounter
--- OUTSIDE RECORDS SUMMARY | 2025-05-08 09:31 | XMS_ITS | Encounter Summary ---
Author Organization Healthcare Address [address] [place] [address] Care Team Providers Care Fiberglass Roving Winder Name Role Phone Unavailable Primary Care Provider Unavailabl e Encounter Details Date Type Department Care Team (Late st Contact Info) Description 05/17/2023 Lab Requisition [facility] [address] [place] [address] Sushil Dean MD [address] [facility] [address] [place] [address] Encounter for general adult medical examination without [...] Organization Address City/[facility] Co de Phone Number [facility] [address] [place] [address] * Bone Culture and Gram Stain (05/17/2023 [...] O RDERABLES Final Result Performing Organization Address [facility] Co de Phone Number [facility] [address] [place] [address] documented in this encounter Visit Diagnoses Diagnosis Encounter for general adult medical examination without abnormal findings documented in this encounter
--- OUTSIDE RECORDS SUMMARY | 2025-05-08 09:31 | XMS_ITS | Encounter Summary ---
Author Organization [facility] Address [address] [place] [address] Care Team Providers Care Steel Inspector Name Role Phone Provider, No Known [...] 2:25 PM EDT Cherri Grimm RN * [place] Suicide Severity Rating Scale (Screener/Recent Self-Report) Question [...] documented as of this encounter Care Teams Steel Inspector Relationship Specialty Start Date End Date Provider, No Known [facility] [place] [address] PCP - General 05/09/23 documented as of this encounter
--- OUTSIDE RECORDS SUMMARY | 2025-05-08 09:31 | XMS_ITS | Encounter Summary ---
Author Organization Healthcare Address [address] [place] [address] Care Team Providers Care Nursing Care Attendant Name Role Phone Unavailable Primary Care Provider Unavailabl e Encounter Details Date Type Department Care Team (Late st Contact Info) Description 08/12/2022 Lab Requisition [facility] [address] [place] [address] Ssuhil Dean MD [address] [place] [address] Encounter for general adult medical examination without [...] has been identified using the FDA Approved Netnui.comer [place] System The organism value for this [...] Performing Organization Address City/[facility] de Phone Number HEALTHCARE [facility] [address] [place] [address] * Bone Culture and Gram Stain (08/12/2022 [...] Performing Organization Address City/[facility] de Phone Number [facility] [address] [place] [address] documented in this encounter Visit Diagnoses Diagnosis Encounter for general adult medical examination without abnormal findings documented in this encounter
--- OUTSIDE RECORDS SUMMARY | 2025-05-08 09:31 | XMS_ITS | Encounter Summary ---
Author Organization Healthcare Address [address] [place] [address] Care Team Providers Care Mail Handler Name Role Phone Unavailable Primary Care Provider Unavailabl e Encounter Details Date Type Department Care Team (Late st Contact Info) Description 07/20/2022 Lab Requisition [facility] [address] [place] [address] Sushil Dean MD [address] [place] [address] Encounter for general adult medical examination without [...]
--- OUTSIDE RECORDS SUMMARY | 2025-05-08 09:31 | XMS_ITS | Encounter Summary ---
Author Organization Healthcare Address [address] [place] [address] Care Team Providers Care Architect Intern Name Role Phone Unavailable Primary Care Provider Unavailabl e Encounter Details Date Type Department Care Team (Late st Contact Info) Description 10/01/2022 Lab Requisition [facility] [address] [place] [address] Sushil Dean MD [address] [facility] [place] [address] Encounter for general adult medical examination without [...] has been identified using the FDA Approved Sawerlyyper [place] System The organism value for this [...] 10/04/2022 2:17 PM EDT Refer to culture [id number] FOR SUSCEPTIBILITIES ON NEELIMA ALBICANS us Sushil Dean MD LAB MICROBIOLOGY - GENERAL O RDERABLES Final Result [facility] [address] [place] [address] documented in this encounter Visit Diagnoses Diagnosis Encounter for general adult medical examination without abnormal findings documented in this encounter
--- OUTSIDE RECORDS SUMMARY | 2025-05-08 09:31 | XMS_ITS | Encounter Summary ---
Author Organization Healthcare Address [address] [place] [address] Care Team Providers Care Oxygen Equipment Technician Name Role Phone Unavailable Primary Care Provider Unavailabl e Encounter Details Date Type Department Care Team (Late st Contact Info) Description 10/19/2022 Lab Requisition [facility] [address] [place] [address] Sushil Dean MD [address] [place] [address] Encounter for general adult medical examination without [...] by MALDI tof mass spectrometry using the Sendori database and is for research use only. The organism value for this result has been updated. These results have been appended to the previously preliminary verified report. Bone Specimen from bone / Unknown 10/19/2022 5:17 PM EDT 10/19/2022 9:49 PM EDT Sushil Dean MD LAB MICROBIOLOGY - GENERAL O RDERABLES Final Result Performing Organization Address [facility] de Phone Number HEALTHCARE LAB [address] [place] [address] * Bone Culture and Gram Stain (10/19/2022 5:17 PM EDT) Culture No growth at day 4 2022 8:14 AM EDT [facility]ALTH[facility]ARE LAB Gram Stain Result Few Polymorphonuclear leukocytes 10/23/2022 8:14 AM EDT HEALTHCARE LAB Gram Stain Result No organisms seen 10/23/2022 8:14 AM EDT [facility] Bone Specimen from bone / Unknown 10/19/2022 5:17 PM EDT 10/19/2022 9:49 PM EDT Sushil Dean MD LAB MICROBIOLOGY - GENERAL O RDERAADDI Final Result Performing Organization Address [facility] Phone Number HEALTHCARE LAB [address] [place] [address] documented in this encounter Visit Diagnoses Diagnosis Encounter for general adult medical examination without abnormal findings documented in this encounter
--- OUTSIDE RECORDS SUMMARY | 2025-05-08 09:32 | XMS_ITS | Clinical Summary ---
Author Organization Healthcare Address [address] [place] [address] Care Team Providers Care Direct Marketing Executive Name Role Phone Unavailable Primary Care Provider [...]
[2025-05-08 10:08] VITALS: BP 128/72; PULSE 71; RESP 16; O2SAT 97
[2025-05-08] MEDS: SODIUM CHLORIDE 0.9% 10ML FLUSH SYRINGE 10 ML IV (10:08)
== END 2025-05-08 23:59 | disposition home or self-care (01) ==
LOC: INF 09:15
PROVIDERS: PCP Nurse Practitioner Family; Visit Provider Internal Medicine Infectious Disease
DX: M86.9 Osteomyelitis, unspecified (principal); B95.62 Methicillin resistant Staphylococcus aureus infection as the cause of diseases classified elsewhere
CPT/HCPCS: 96365; J0878

== ENCOUNTER 2025-05-09 08:13 | Outpatient (CLI) | payer MEDICARE, SELFPAY ==
--- OUTSIDE RECORDS SUMMARY | 2023-12-12 05:00 | XMS_ITS ---
Author Organization [facility] Address [address] [facility] 36 [facility] 2C YVON Sykes [phone] Care Team Providers Care Test Center Administrator Name Role Phone Zeeshan Salazar Primary Care Provider Macario Burkett [phone] REASON FOR VISIT 6 Month Check Up Encounters Encounter Location Date Provider Diagnosis [place] [address] [facility] [address] [place] [phone] 12/12/2023 Macario Burkett Plan Of Treatment No Information Progress Notes * Won MEDRANO ZeeshanDOB: [birth year] (44 yo M)Acc No.[id number]:12/12/2023 Progress Notes Patient: Won SPANN Provider: Colleen Burkett M.D. :1980 A ge:43 Y S ex:Male Date:12/12/2023 Address:[address] [place] [address] Onel THACKER [id number] Pcp:Zeeshan Salazar Subjective: * Chief Complaints: * 1 . 6 Month Check Up. * Medical History: Objective: * Vitals: Assessment: Plan: * Treatment: * Images: Billing Information: * Visit Code: * Procedure Codes: * Electronic signature of Micaela Burkett MD on 05/09/2025 at 08:16 AM EDT Sign off status: Pending * Provider: Colleen Burkett M.D. Date: 12/12/2023 Generated for Nany jorgensen/Elaine/Pro on: 1 08:16 AM EDT
--- OUTSIDE RECORDS SUMMARY | 2025-04-04 16:10 | XMS_ITS | Encounter Summary ---
Author Organization [facility] Address [address] [place] [address] Care Team Providers Care Home Care Associate Name Role Phone Provider, No Known Primary Care Provider Unavail able Reason for Visit * Reason Comments Leg Swelling * Auth/Cert Specialty Diagnoses / Procedures Referred By Contlevy t Referred To Contact Diagnoses Right BKA infection Referral ID Status Reason Start Date Expiration Date Visits Re quested Visits Authorized [id number] 1 1 Encounter Details Date Type Department Care Team (Late st Contact Info) Description 04/04/2025 4:10 PM EDT - 04/11/2025 1:58 PM EDT Hospital Encounter [address] [place] [address] Mario Crowley, [address] [place] [address] Leonora Shepherd MD [address] [address] Jason Álvarez DO [address] [address] Jadyn Richardson DO [address] [address] Cellulitis of right lower extremity (Primary Dx); Below-knee amputation of right lower extremity, initial encounter; Right BKA infection Discharge Disposition: Home or Self Care Social History Tobacco Use Types Packs/Day Years Used Date Smoking Tobacco: Never Smokeless Tobacco: Never Tobacco Cessation:Counseling Given: Not Answered Alcohol Use Standard Drinks/Week Comments Not Currently 0 (1 standard drink = 0.6 oz pur e alcohol) [facility] Utilities Answer Date Recorded In the past 12 months has th e cisimple, gas, oil, or water company threatened to [...] or training? Not on file Preferred Language Qatari 04/07/2025 Sex and Gender Information Value Date [...] 2:25 PM EDT Cherri Grimm RN * [place] Suicide Severity Rating Scale (Screener/Recent Self-Report) Question [...] from the original note were not included. [facility] Medicine Services DISCHARGE SUMMARY Patient [...] Date/Time Wound Culture - Swab, Leg, Right [[id number]] (Abnormal) (Susceptibility) Collected: 04/07/252106 Lab Status: Final [...] Units Date/Time FL C Arm During Surgery [[id number]] Resulted: 04/07/252137 Updated: 04/07/252137 Narrative: This procedure was auto-finalized with no dictation required. MRI Tibia Fibula Right With & Without Contrast [[id number]] Collected: 04/07/25 0938 Updated: 04/07/25 1001 Narrative: [...] Buenrostro 04/07/2025 9:58 AM EDT Workstation ID: [id number] MRI Tibia Fibula Right With & Without Contrast [[id number]] Collected: 04/04/252256 Updated: 04/04/252302 Narrative: MRI TIBIA [...] represent a small area of phlegmonous change ([id number] image 10) measuring approximately 1.6 cm which [...] MD 04/04/2025 11:00 PM EDT Workstation ID: [id number] Pending Labs Order Current Status Fungus Culture [...] [facility] Digestive [facility] capsule doxycycline 100 MG tablet Commonly [...] Male) Date of 1980 Social Security Number [id number] [place] [address] Anabaptist Unknown Marital Status Unknown Admission Date 04/04/2025 Admission Type Emergency Admitting Provider Jadyn Richardson DO Attending Provider Jadyn Richardson DO Department, Room/Bed [address], S565/1 Discharge Date Discharge Disposition Discharge [...] Group [place] [id number] Payor Plan Address Payor Plan Phone Number Payor Plan Fax Number Effective Dates [employer] [address] [address] 08/10/2023 - None Entered [place] [address] Subscriber Name Subscriber Date Member ID WON DENNIS 1980 [id number] Emergency Contacts Yard Clerk (Rel.) Home Phone Work Phone Mobile Phone Avril Dennis (Spouse) -- -- [phone] LewRobert (Relative) -- -- [phone] [place] [facility] [address] Patient: ROOM: [facility] Won Dennis [address] [facility] [address] : 1980 SSN: [id number] Sex: M PCP: Provider, No Known Emergency Contact Information Name Relation Home Work Mobile Avril Dennis Spouse [phone] Other Contacts Name Relation Home Work Mobile Robert Hackett Relative [phone] INSURANCE PAYOR [employer]AN [employer] # SUBSCRIBER ID Primary: Secondary: MEDICARE [employer]ICAID [place] [id number] Admitting Diagnosis: 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] Order Date: Apr 09, 2025 Case Management Handbag Stitcher Consult (Order ID: [id number]) Diagnosis: Priority: Routine Expected Date: Expiration Date: Interval: Once Count: Comments: Outpatient orders: 1. Outpatient intravenous antibiotic therapy: Daptomycin 800 mg IV daily to be supplied by [facility] 2. Home health to perform [...] INFECTIOUS DISEASE Progress Note Won Dennis 1980 [id number] Date of Consult: 04/10/2025 Admission Date: 04/04/2025 [...] which prompted him to seek treatment at [facility]. He is known to Dr. [...] wound 05/09/25. HDS, on Heparin gtt. Currently [facility] has been asked to manage [...] IVPB, 8 mg/kg (Adjusted), Intravenous, Q24H, Sushil Dena Jr., MD, Last Rate: 100 mL/hr at 04/09/25906, 800 mg at 04/09/25906 ethyl alcohol 62 % 2 each, 2 Swab, Nasal, Once, Sushil Dean Jr., MD ferrous sulfate tablet 325 mg, 325 mg, Oral, BID, Sushil Dean Jr., MD, 325 mg at 04/09/252026 furosemide (LASIX) tablet 20 mg, 20 mg, Oral, Daily, uSshil Dean Jr., MD, 20 mg at 04/09/25906 heparin 81835 units/250 mL (100 units/mL) in 0.45 % [...] Units Date/Time FL C Arm During Surgery [[id number]] Resulted: 04/07/252137 Updated: 04/07/252137 Narrative: This procedure was auto-finalized with no dictation required. MRI Tibia Fibula Right With & Without Contrast [[id number]] Collected: 04/07/25 0938 Updated: 04/07/25 1001 Narrative: [...] Chitra 04/07/2025 9:58 AM EDT Workstation ID: [id number] Impression: Recurrent Right BKA stump abscess/cellulitis- this [...] disposition with the pharmacist at [facility] today. I will sign off Outpatient orders: 1. Outpatient intravenous antibiotic therapy: Daptomycin 800 mg IV daily to be supplied by [facility] 2. Home health to perform weekly PICC [...] Time: 04/10/251323 Signed Expand All Collapse All [facility] Medicine Services PROGRESS NOTE Patient [...] Date/Time Wound Culture - Swab, Leg, Right [[id number]] (Abnormal) (Susceptibility) Collected: 04/07/252106 Lab Status: Final [...] Row Name 04/06/25 1143 Sit-Stand Transfer Sit-Stand Grainger (Transfers) modified independence -LM Comment, (Sit-Stand Transfer) Pt stood from recliner. Not holding onto walker, pt able to pull his pants up while balancing on his one leg. -LM Row Name 04/06/25 1143 Gait/Stairs (Locomotion) Grainger Level (Gait) modified independence -LM Distance in [...] Nurse Physical Therapy Education Title: PT OT PARACHUTE MENDER Therapies (Done) Topic: Physical Therapy (Done) Point: [...] Description Service Date Service Provider Modifiers Qty [id number] PT EVAL LOW COMPLEXITY 3 04/06/2025 Susan [...] mg Daily 04/05/2025 -- Route: Oral heparin 05160 units/250 mL (100 units/mL) in 0.45 % [...] -- Admin Instructions: Open Order & Select [facility] Electrolyte Replacement Protocol Algorithm to View Details [...] Dean MD April 21 vs April 22 [facility] [address], [address] [facility], [address] Please schedule at [phone] VONDA Garcia 04/11/25 08:32 EDT Cosigned by Sushil Dean Jr., MD at 04/19/2025 10:33 AM EDT Associated attestation - Sushil Dean Jr., MD - 04/19/2025 10:33 AM EDT I have reviewed this documentation and agree. * Rosario Hill APRN - 04/10/2025 1:24 PM EDT Images from the original note were not included. [facility] Medicine Services PROGRESS NOTE Patient [...] Date/Time Wound Culture - Swab, Leg, Right [[id number]] (Abnormal) (Susceptibility) Collected: 04/07/252106 Lab Status: Final [...] mg Daily 04/05/2025 -- Route: Oral heparin 45940 units/250 mL (100 units/mL) in 0.45 % [...] -- Admin Instructions: Open Order & Select [facility] Electrolyte Replacement Protocol Algorithm to View Details [...] -- Admin Instructions: Open Order & Select [facility] Electrolyte Replacement Protocol Algorithm to View Details [...] -- Admin Instructions: Open Order & Select [facility] Electrolyte Replacement Protocol Algorithm to View Details [...] Dean MD April 21 vs April 22 [facility] [address], [address] [facility], [address] Please schedule at [phone] VONDA Garcia 04/10/25 09:01 EDT Cosigned by Sushil Dean Jr., MD at 04/19/2025 10:33 AM EDT Associated attestation - Sushil Dean Jr., MD - 04/19/2025 10:33 AM EDT I have reviewed this documentation and agree. * Carlton Mead MD - 04/10/2025 7:38 AM EDT Images from the original note were not included. INFECTIOUS DISEASE Progress Note Won Dennis 1980 [id number] Date of Consult: 04/10/2025 Admission Date: 04/04/2025 [...] which prompted him to seek treatment at [facility]. He is known to Dr. [...] wound 05/09/25. HDS, on Heparin gtt. Currently [facility] has been asked to manage [...] Jr., MD, 20 mg at 04/09/25906 heparin 42710 units/250 mL (100 units/mL) in 0.45 % [...] vancomycin 2750 mg/500 mL 0.9% NS IVPB ([facility]) Ordering Provider: Mario Crowley, DO 20 mg/kg [...] Units Date/Time FL C Arm During Surgery [[id number]] Resulted: 04/07/252137 Updated: 04/07/252137 Narrative: This procedure was auto-finalized with no dictation required. MRI Tibia Fibula Right With & Without Contrast [[id number]] Collected: 04/07/25 0938 Updated: 04/07/25 1001 Narrative: [...] Buenrostro 04/07/2025 9:58 AM EDT Workstation ID: [id number] Impression: Recurrent Right BKA stump abscess/cellulitis- this [...] disposition with the pharmacist at [facility] today. I will sign off Outpatient orders: 1. Outpatient intravenous antibiotic therapy: Daptomycin 800 mg IV daily to be supplied by [facility] 2. Home health to perform weekly PICC [...] MD 04/10/2025 07:38 EDT * Yaya Hamiltonn, [facility] - 04/10/2025 7:17 AM EDT Pharmacy to [...] from the original note were not included. [facility] Medicine Services PROGRESS NOTE Patient [...] Date/Time Wound Culture - Swab, Leg, Right [[id number]] (Abnormal) Collected: 04/07/252106 Lab Status: Preliminary result [...] to display. Brief Hospital Course to date: Wno Dennis is a 44 y.o. male with [...] Jason DO Preeti 04/09/25 * Larisa Hamilton [facility] - 04/09/2025 11:36 AM EDT Pharmacy to [...] mg Daily 04/05/2025 -- Route: Oral heparin 87849 units/250 mL (100 units/mL) in 0.45 % [...] -- Admin Instructions: Open Order & Select [facility] Electrolyte Replacement Protocol Algorithm to View Details [...] -- Admin Instructions: Open Order & Select [facility] Electrolyte Replacement Protocol Algorithm to View Details [...] -- Admin Instructions: Open Order & Select [facility] Electrolyte Replacement Protocol Algorithm to View Details [...] in 2 weeks for incision check, radiographs [facility] [address], [address] [facility], [address] Please schedule at [phone] VONDA Garcia 04/09/25 09:18 EDT Cosigned by Sushil Dean Jr., MD at 04/19/2025 10:33 AM EDT Associated attestation - Sushil Dean Jr., MD - 04/19/2025 10:33 AM EDT I have reviewed this documentation and agree. * Carlton Mead MD - 04/09/2025 8:25 AM EDT Images from the original note were not included. INFECTIOUS DISEASE Progress Note Won Dennis 1980 [id number] Date of Consult: 04/09/2025 Admission Date: 04/04/2025 [...] which prompted him to seek treatment at [facility]. He is known to Dr. [...] wound 05/09/25. HDS, on Heparin gtt. Currently [facility] has been asked to manage [...] Sushil Dean Jr., MD; Location: [facility]; Service: Orthopedics; Laterality: Right; PLACEMENT OF WOUND VAC Right 04/07/2025 Procedure: WOUND VACUUM ASSISTED CLOSURE; Surgeon: Sushil Dean Jr., MD; Location: [facility] OR; Service: Orthopedics; Laterality: Right; History reviewed. [...] MD, 20 mg at 04/08/25 0800 heparin 33855 units/250 mL (100 units/mL) in 0.45 % [...] Units Date/Time FL C Arm During Surgery [[id number]] Resulted: 04/07/252137 Updated: 04/07/252137 Narrative: This procedure was auto-finalized with no dictation required. MRI Tibia Fibula Right With & Without Contrast [[id number]] Collected: 04/07/2538 Updated: 04/07/25 1001 Narrative: MRI [...] Buenrostro 04/07/2025 9:58 AM EDT Workstation ID: [id number] Impression: Recurrent Right BKA stump abscess/cellulitis- this [...] mg IV daily to be supplied by [facility] 2. Home health to perform [...] from the original note were not included. [facility] Medicine Services PROGRESS NOTE Patient [...] Buenrostro 04/07/2025 9:58 AM EDT Workstation ID: [id number] I have personally reviewed the therapy plans: [...] Jason Álvarez DO 04/08/25 * Larisa Hamilton [facility] - 04/08/2025 11:48 AM EDT Pharmacy to [...] -- Admin Instructions: Open Order & Select [facility] Electrolyte Replacement Protocol Algorithm to View Details [...] mg Daily 04/05/2025 -- Route: Oral heparin 51098 units/250 mL (100 units/mL) in 0.45 % [...] -- Admin Instructions: Open Order & Select [facility] Electrolyte Replacement Protocol Algorithm to View Details [...] -- Admin Instructions: Open Order & Select [facility] Electrolyte Replacement Protocol Algorithm to View Details [...] -- Admin Instructions: Open Order & Select [facility] Electrolyte Replacement Protocol Algorithm to View Details [...] INFECTIOUS DISEASE Progress Note Won Dennis 1980 [id number] Date of Consult: 04/08/2025 Admission Date: 04/04/2025 [...] which prompted him to seek treatment at [facility]. He is known to Dr. [...] wound 05/09/25. HDS, on Heparin gtt. Currently [facility] has been asked to manage [...] Sushil Dean Jr., MD; Location: [facility]; Service: Orthopedics; Laterality: Right; PLACEMENT OF WOUND VAC Right 04/07/2025 Procedure: WOUND VACUUM ASSISTED CLOSURE; Surgeon: Sushil Dean Jr., MD; Location: [facility] OR; Service: Orthopedics; Laterality: Right; History reviewed. [...] Jr., MD, 20 mg at 04/07/25950 heparin 89545 units/250 mL (100 units/mL) in 0.45 % [...] % 100 mL MBP Ordering Provider: Leonora Shephred MD 2,000 mg 200 mL/hr over 30 [...] Units Date/Time FL C Arm During Surgery [[id number]] Resulted: 04/07/252137 Updated: 04/07/252137 Narrative: This procedure was auto-finalized with no dictation required. 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 (Treated by ID in [place] Dr. Harris). Dr. Torres treated him with [...] from the original note were not included. [facility] Medicine Services PROGRESS NOTE Patient [...] Buenrostro 04/07/2025 9:58 AM EDT Workstation ID: [id number] I have personally reviewed the therapy plans: [...] Jason Álvarez DO 04/07/25 * Larisa Hamilton [facility] - 04/07/2025 11:56 AM EDT Pharmacy to [...] INFECTIOUS DISEASE Progress Note Won Dennis 1980 [id number] Date of Consult: 04/07/2025 Admission Date: 04/04/2025 [...] which prompted him to seek treatment at [facility]. He is known to Dr. [...] wound 05/09/25. HDS, on Heparin gtt. Currently [facility] has been asked to manage [...] Application, 1 Application, Topical, Q12H, Ayah Valentin, TRACTOR ENGINE ASSEMBLER, 1 Application at 04/06/252101 DAPTOmycin (CUBICIN) 800 [...] Shepherd MD, 20 mg at 04/06/25899 heparin 39547 units/250 mL (100 units/mL) in 0.45 % NaCl infusion, 18 Units/kg/hr, Intravenous, Titrated, Cherri Beatty, [facility], Last Rate: 24.1 mL/hr at 04/07/258, 18 [...] With & Without Contrast - In process [[id number]] Resulted: 04/07/25828 Updated: 04/07/25828 This result has not been signed. Information might be incomplete. 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 (Treated by ID in [place] Dr. Harris). Dr. Torres treated him with [...] mg Daily 04/05/2025 -- Route: Oral heparin 51402 units/250 mL (100 units/mL) in 0.45 % [...] -- Admin Instructions: Open Order & Select [facility] Electrolyte Replacement Protocol Algorithm to View Details [...] -- Admin Instructions: Open Order & Select [facility] Electrolyte Replacement Protocol Algorithm to View Details [...] MD 04/07/25 06:07 EDT * Cherri Beatty [facility] - 04/06/2025 1:47 PM EDT Pharmacy to Dose Heparin Infusion Note Won eDnnis is a 44 y.o. male receiving heparin [...] from the original note were not included. [facility] Medicine Services PROGRESS NOTE Patient [...] MD 04/04/2025 11:00 PM EDT Workstation ID: [id number] I have personally reviewed the therapy plans: [...] mg Daily 04/05/2025 -- Route: Oral heparin 92682 units/250 mL (100 units/mL) in 0.45 % [...] -- Admin Instructions: Open Order & Select [facility] Electrolyte Replacement Protocol Algorithm to View Details [...] INFECTIOUS DISEASE follow up. Won Dennis 1980 [id number] Date of Consult: 04/06/2025 Admission Date: 04/04/2025 [...] which prompted him to seek treatment at [facility]. He is known to Dr. [...] wound 05/09/25. HDS, on Heparin gtt. Currently [facility] has been asked to manage [...] Application, 1 Application, Topical, Q12H, Ayah Valentin, TRACTOR ENGINE ASSEMBLER, 1 Application at 04/06/25 0859 DAPTOmycin (CUBICIN) [...] MD, 20 mg at 04/06/25 0900 heparin 00857 units/250 mL (100 units/mL) in 0.45 % NaCl infusion, 18 Units/kg/hr, Intravenous, Titrated, Cherri Beatty [facility], Last Rate: 24.1 mL/hr at 04/06/25 1420, [...] Tibia Fibula Right With & Without Contrast [[id number]] Collected: 04/04/252256 Updated: 04/04/252302 Narrative: MRI TIBIA [...] represent a small area of phlegmonous change (ejhyjh98 image 10) measuring approximately 1.6 cm which [...] MD 04/04/2025 11:00 PM EDT Workstation ID: [id number] Impression: 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 (Treated by ID in [place] Dr. Harris). Dr. Torres treated him with [...] MD 04/06/2025 16:00 EDT * Cherri Beatty, [facility] - 04/05/2025 3:01 PM EDT Pharmacy to [...] from the original note were not included. [facility] Medicine Services PROGRESS NOTE Patient [...] MD 04/04/2025 11:00 PM EDT Workstation ID: [id number] I have personally reviewed the therapy plans: [...] from the original note were not included. [facility] Medicine Services HISTORY AND PHYSICAL [...] MD 04/04/2025 11:00 PM EDT Workstation ID: [id number] Assessment & Plan Assessment & Plan Won [...] EDTAssociated Order(s): IP CONSULT TO ORTHOPEDIC SURGERY [facility], [place] [address] [address] Orthopedic Consult Patient: Won Dennis Date of Admission: 04/04/2025 4:10 PM Date of : 1980 Attending Physician: Jason Álvarez DO Consulting Physician: Sushil Dean Jr, MD Chief Complaint: 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 male admitted to [facility] with 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]. He has [...] was evaluated in the emergency department in [place], was discharged with instructions for follow-up. He [...] ([facility]) capsule Take 200 mg by mouth Daily. [...] MD 04/04/2025 11:00 PM EDT Workstation ID: [id number] Assessment: Right BKA infection 44-year-old male with [...] DISEASE CONSULT/INITIAL HOSPITAL VISIT Won Dennis 1980 [id number] Date of Consult: 04/05/2025 Admission Date: 04/04/2025 [...] which prompted him to seek treatment at [facility]. He is known to Dr. [...] wound 05/09/25. HDS, on Heparin gtt. Currently [facility] has been asked to manage [...] Leonora Shepherd MD, 40 mg at 04/04/25 8109 sennosides-docusate (PERICOLACE) 8.6-50 MG per tablet 2 [...] MD, 20 mg at 04/05/25 0916 heparin 39953 units/250 mL (100 units/mL) in 0.45 % [...] Tibia Fibula Right With & Without Contrast [[id number]] Collected: 04/04/252256 Updated: 04/04/252302 Narrative: MRI TIBIA [...] represent a small area of phlegmonous change (kvzgor88 image 10) measuring approximately 1.6 cm which [...] MD 04/04/2025 11:00 PM EDT Workstation ID: [id number] Impression: 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 (Treated by ID in [place] Dr. Harris). Dr. Torres treated him with [...] single patient room provided Taken 04/08/20251942 by Bbo Rosenberg RN Infection Prevention: environmental surveillance performed [...] Jr., MD - 04/08/2025 3:51 PM EDT [facility] OPERATIVE REPORT PATIENT NAME: Won Dennis DATE OF : 1980 PREOP DIAGNOSIS: Right Right below-knee amputation infection POSTOP DIAGNOSIS: Same. PROCEDURE: Right Right 75230: Secondary closure below-knee amputation SURGEON: Sushil Dean MD OPERATIVE TEAM: Bill Checker: Susi Grullon RN Scrub Person: Mary Paredes Scrub Person Extra: Hortencia Toribio Other: Katt Gotti RN; Charis Neville RN ANESTHETIST: Anesthesiologist: Ulises Hoffman MD CONTAINERS SALES REPRESENTATIVE: Stan Casillas CRNA Student Nurse Gas Truck Driver: Karol Albert SRNA ANESTHESIA: Choice ESTIMATED BLOOD [...] CULTURE (Canceled) Sushil Dean Jr., MD 04/08/25 5259 Description: RIGHT LEG DEEP WOUND FOR CULTURE [...] Jr., MD - 04/07/2025 9:03 PM EDT [facility] [address] [address] OPERATIVE REPORT PATIENT NAME: Won Dennis DATE OF : 1980 PREOP DIAGNOSIS: Right Right below knee amputation stump infection POSTOP DIAGNOSIS: Same. PROCEDURE: Right Right 77906: Incision and drainage of surgical site infection 36827: Debridement of skin, subcutaneous tissue, muscle 33227: Wound vacuum-assisted closure SURGEON: Sushil Dean MD OPERATIVE TEAM: Bill Checker: Anum Sanchez RN Scrub Person: Hortencia Toribio; Gerald Ivey RUSSIAN LANGUAGE PROFESSOR: Anesthesiologist: Luci Alonso DO ANESTHESIA: General ESTIMATED [...] ago swellling of the area. seen at [facility] yesterday for CT and US, [...] this chart in the absence of a fiber design engineer. No orders to display RADIOLOGY: [x] Radiologist's [...] 04/11/2025 1:30 PM EDT Continued Stay Note [place] Patient Name: Won Dennis Today's Date: 04/11/2025 Admit Date: 04/04/2025 Plan: Home with outpatient infusion. Discharge Plan Row Name 04/11/25 1155 Plan Plan Home with outpatient infusion. Final Discharge Disposition Code 01 - home or self-care Final Note Patient discharging today. He is discharging home with outpatient infusion at [facility]. He has an appointment with [facility] at 8:00 am tomorrow. They will do PICC line dressing changes. DEBRA has spoke with Dena at [facility] today multiple times to get [...] to get IV ABX at home with [facility]; however, Medicaid lapsed on 04/08. DEBRA was unaware until this morning that Medicaid has lapsed. Patient explained that he has Medicare A and B. CM spoke with KELLEE and given themhis Medicare number [id number], she sent it to Admission. DEBRA spoke with Kerri, with [facility], and explained that he had Medicare A and B. However, it will not cover home infusion. It will be $64.00 a day out of packet. Patients can go to the Infusion center at [facility], and it will cover the cost as an outpatient. He will need to go there every day for infusion. They will be able to do the patients' PICC line dressing changes and lab work. CM called Dena [facility] Outpatient infusion center they can accept patient and start him. He is known for their facility. The Facility will need to run it through his insurance first. CM faxed the orders over to [facility] at [phone]. CM will follow up with them tomorrow at [facility] to make sure they received [...] with patient at bedside today. [facility] Patient getting PICC line [...] note were not included. Discharge Planning Assessment [place] Patient Name: Won Dennis Today's Date: 04/07/2025 [...] Patient/Family Anticipated Services at Transition shelter case managerfamily manager Anticipated family or friend will provide Discharge Needs Assessment Equipment Currently Used at Home glucometer;shower chair;pulse ox;bp cuff;prosthesis;crutches Equipment Needed After Discharge none Discharge Plan Row Name 04/07/25 1144 Plan Plan Home Patient/Family in Agreement with Plan yes Plan Comments CM spoke with patient at bedside today. Patient lives with and his [address] [facility]. 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 He has walker, cane, shower chair, and crutches. He requested a wheelchair for home. CM will order wheelchair through [employer]. He is not current with home health services. PCP is Dr. Jordan. Insurance is [facility] Medicaid [place]. Patient discharge plan is home with priavte transport. CM will follow for any discharge needs. Final Discharge Disposition Code 01 - home or self-care Continued Care and Services - Admitted Since 04/04/2025 No active coordination exists. Demographic Summary Row Name 04/07/25 1143 General Information Arrived From hospital Preferred Language Qatari Functional Status Row Name 04/07/25 1143 Functional [...] 3:4 0 PM EDT Right BKA infection [place] SEC ABDOMINAL WALL SUTURE EVISCERATION/DEHSN 04/08/2025 3:20 [...] CBC Auto Differential (04/11/2025 3:40 AM EDT) [facility] WBC 7.87 3.40 - 10.80 10*3/mm3 04/11/2025 4:02 AM EDT [facility] RBC 4.70 4.14 - 5.80 10*6/mm3 04/11/2025 4:02 AM EDT [facility] Hemoglobin 12.8(L) 13.0 - 17.7 g/dL 04/11/2025 4:02 AM EDT [facility] Hematocrit 40.5 37.5 - 51.0 % 04/11/2025 4:02 AM EDT [facility] MCV 86.2 79.0 - 97.0 fL 04/11/2025 4:02 AM EDT [facility] MCH 27.2 26.6 - 33.0 pg 04/11/2025 4:02 AM EDT [facility] MCHC 31.6 31.5 - 35.7 g/dL 04/11/2025 4:02 AM EDT [facility] RDW 12.9 12.3 - 15.4 % 04/11/2025 4:02 AM EDT [facility] RDW-SD 40.5 37.0 - 54.0 fl 04/11/2025 4:02 AM EDT [facility] MPV 9.2 6.0 - 12.0 fL 04/11/2025 4:02 AM EDT [facility] Platelets 267 140 - 450 10*3/mm3 04/11/2025 4:02 AM [facility] Neutrophil % 59.5 42.7 - 76.0 % 04/11/2025 4:02 AM [facility] Lymphocyte % 26.3 19.6 - 45.3 % 04/11/2025 4:02 AM [facility] Monocyte % 9.3 5.0 - 12.0 % 04/11/2025 4:02 AM [facility] Eosinophil % 4.1 0.3 - 6.2 % 04/11/2025 4:02 AM [facility] Basophil % 0.4 0.0 - 1.5 % 04/11/2025 4:02 AM [facility] Immature Grans % 0.4 0.0 - 0.5 % 04/11/2025 4:02 AM [facility] Neutrophils, Absolute 4.69 1.70 - 7.00 10*3/mm3 04/11/2025 4:02 AM [facility] Lymphocytes, Absolute 2.07 0.70 - 3.10 10*3/mm3 04/11/2025 4:02 AM [facility] Monocytes, Absolute 0.73 0.10 - 0.90 10*3/mm3 04/11/2025 4:02 AM [facility] Eosinophils, Absolute 0.32 0.00 - 0.40 10*3/mm3 04/11/2025 4:02 AM [facility] Basophils, Absolute 0.03 0.00 - 0.20 10*3/mm3 04/11/2025 4:02 AM [facility] Immature Grans, Absolute 0.03 0.00 - 0.05 10*3/mm3 04/11/2025 4:02 AM [facility] nRBC 0.0 0.0 - 0.2 /100 WBC 04/11/2025 4:02 AM [facility] Blood Venipuncture / Unknown 04/11/2025 3:40 AM EDT 04/11/2025 3:59 AM EDT us Sushil Dean Jr., MD LAB BLOOD ORDERABLES Fi nal Result [facility]
[address] [place] [address], * (ABNORMAL) Comprehensive Metabolic Panel (04/11/2025 3:40 AM EDT) Glucose 108(H) 65 - 99 mg/dL 04/11/2025 4:19 AM EDT [facility] BUN 12.5 6.0 - 20.0 mg/dL 04/11/2025 4:19 AM EDT [facility] Creatinine 0.68(L) 0.76 - 1.27 mg/dL 04/11/2025 4:19 AM EDT [facility] Sodium 140 136 - 145 mmol/L 04/11/2025 4:19 AM EDT [facility] Potassium 3.8 3.5 - 5.2 mmol/L 04/11/2025 4:19 AM EDT [facility] Chloride 105 98 - 107 mmol/L 04/11/2025 4:19 AM EDT [facility] CO2 28.2 22.0 - 29.0 mmol/L 04/11/2025 4:19 AM EDT [facility] Calcium 8.2(L) 8.6 - 10.5 mg/dL 04/11/2025 4:19 AM EDT [facility] Total Protein 6.1 6.0 - 8.5 g/dL 04/11/2025 4:19 AM EDT [facility] Albumin 3.1(L) 3.5 - 5.2 g/dL 04/11/2025 4:19 AM EDT [facility] ALT (SGPT) 52(H) 1 - 41 U/L 04/11/2025 4:19 AM EDT [facility] AST (SGOT) 40 1 - 40 U/L 04/11/2025 4:19 AM EDT [facility] Alkaline Phosphatase 99 39 - 117 U/L 04/11/2025 4:19 AM EDT [facility] Total Bilirubin 0.2 0.0 - 1.2 mg/dL 04/11/2025 4:19 AM EDT [facility] Globulin 3.0 gm/dL 04/11/2025 4:19 AM EDT [facility] Comment:Calculated Result A/G Ratio 1.0 g/dL 04/11/2025 4:19 AM EDT [facility] BUN/Creatinine Ratio 18.4 7.0 - 25.0 04/11/2025 4:19 AM EDT [facility] Anion Gap 6.8 5.0 - 15.0 mmol/L 04/11/2025 4:19 AM EDT [facility] eGFR 117.5 >60.0 mL/min/1.7 3 04/11/2025 4:19 AM EDT [facility] Blood Venipuncture / Unknown 04/11/2025 3:40 AM EDT 04/11/2025 3:56 AM EDT [facility] - 04/11/2025 4:19 AM [...] Hill APRN LAB BLOOD ORDERABLES Final Result [facility]
[address] [place] [address], * (ABNORMAL) CBC Auto Differential (04/10/2025 3:46 AM EDT) [facility] WBC 9.60 3.40 - 10.80 10*3/mm3 04/10/2025 3:56 AM EDT [facility] RBC 4.67 4.14 - 5.80 10*6/mm3 04/10/2025 3:56 [facility] Hemoglobin 12.9(L) 13.0 - 17.7 g/dL 04/10/2025 3:56 AM EDT [facility] Hematocrit 40.1 37.5 - 51.0 % 04/10/2025 3:56 [facility] MCV 85.9 79.0 - 97.0 fL 04/10/2025 3:56 [facility] MCH 27.6 26.6 - 33.0 pg 04/10/2025 3:56 AM [facility] MCHC 32.2 31.5 - 35.7 g/dL 04/10/2025 3:56 [facility] RDW 12.9 12.3 - 15.4 % 04/10/2025 3:56 AM [facility] RDW-SD 40.5 37.0 - 54.0 fl 04/10/2025 3:56 AM [facility] MPV 9.5 6.0 - 12.0 fL 04/10/2025 3:56 AM [facility] Platelets 227 140 - 450 10*3/mm3 04/10/2025 3:56 AM EDT [facility] Neutrophil % 59.1 42.7 - 76.0 % 04/10/2025 3:56 AM [facility] Lymphocyte % 29.0 19.6 - 45.3 % 04/10/2025 3:56 [facility] Monocyte % 8.1 5.0 - 12.0 % 04/10/2025 3:56 [facility] Eosinophil % 3.2 0.3 - 6.2 % 04/10/2025 3:56 AM EDT [facility] Basophil % 0.4 0.0 - 1.5 % 04/10/2025 3:56 AM EDT [facility] Immature Grans % 0.2 0.0 - 0.5 % 04/10/2025 3:56 AM EDT [facility] Neutrophils, Absolute 5.67 1.70 - 7.00 10*3/mm3 04/10/2025 3:56 AM EDT [facility] Lymphocytes, Absolute 2.78 0.70 - 3.10 10*3/mm3 04/10/2025 3:56 AM EDT [facility] Monocytes, Absolute 0.78 0.10 - 0.90 10*3/mm3 04/10/2025 3:56 AM EDT [facility] Eosinophils, Absolute 0.31 0.00 - 0.40 10*3/mm3 04/10/2025 3:56 AM EDT [facility] Basophils, Absolute 0.04 0.00 - 0.20 10*3/mm3 04/10/2025 3:56 AM EDT [facility] Immature Grans, Absolute 0.02 0.00 - 0.05 10*3/mm3 04/10/2025 3:56 AM EDT [facility] nRBC 0.0 0.0 - 0.2 /100 WBC 04/10/2025 3:56 AM EDT [facility] Blood Venipuncture / Unknown 04/10/2025 3:46 AM EDT 04/10/2025 3:53 AM EDT Jason Álvarez DO LAB BLOOD ORDERABLES Final Resul t [facility]
[address] [place] [address], * (ABNORMAL) Basic Metabolic Panel (04/10/2025 3:46 AM EDT) [facility] Glucose 125(H) 65 - 99 mg/dL 04/10/2025 4:20 AM EDT [facility] BUN 15.9 6.0 - 20.0 mg/dL 04/10/2025 4:20 AM T [facility] Creatinine 0.77 0.76 - 1.27 mg/dL 04/10/2025 4:20 AM T [facility] Sodium 137 136 - 145 mmol/L 04/10/2025 4:20 AM [facility] Potassium 3.9 3.5 - 5.2 mmol/L 04/10/2025 4:20 AM EDT [facility] Chloride 102 98 - 107 mmol/L 04/10/2025 4:20 AM EDT [facility] CO2 26.9 22.0 - 29.0 mmol/L 04/10/2025 4:20 AM [facility] Calcium 7.9(L) 8.6 - 10.5 mg/dL 04/10/2025 4:20 AM [facility] BUN/Creatinine Ratio 20.6 7.0 - 25.0 04/10/2025 4:20 AM [facility] Anion Gap 8.1 5.0 - 15.0 mmol/L 04/10/2025 4:20 AM [facility] eGFR 113.2 >60.0 mL/min/1.7 3 04/10/2025 4:20 AM [facility] Blood Venipuncture / Unknown 04/10/2025 3:46 AM EDT 04/10/2025 3:52 AM EDT [facility] - 04/10/2025 4:20 AM [...] DO LAB BLOOD ORDERABLES Final Resul t [facility]
[address] [place] [address], * Heparin Anti-Xa (04/10/2025 3:46 AM EDT) Heparin Anti-Xa (UFH) 0.35 0.30 - 0.70 IU/ml 04/10/2025 4:23 AM EDT [facility] Blood Venipuncture / Unknown 04/10/2025 3:46 AM EDT 04/10/2025 3:53 AM EDT [facility] LAB BLOOD ORDERABLES Final R esult Performing Organization Address City/[facility]/ZIP Co de Phone Number [facility]
[address] [place] [address], * Heparin Anti-Xa (04/09/2025 10:05 AM EDT) Heparin Anti-Xa (UFH) 0.36 0.30 - 0.70 IU/ml 04/09/2025 11:12 AM EDT [facility] Blood Venipuncture / Unknown 04/09/2025 10:05 AM EDT 04/09/2025 10:47 AM EDT [facility] LAB BLOOD ORDERABLES Final R esult [facility]
[address] [place] [address], * (ABNORMAL) CBC Auto Differential (04/09/2025 4:18 AM EDT) WBC 11.00(H) 3.40 - 10.80 10*3/mm3 04/09/2025 4:50 AM [facility] RBC 4.70 4.14 - 5.80 10*6/mm3 04/09/2025 4:50 AM EDT [facility] Hemoglobin 13.0 13.0 - 17.7 g/dL 04/09/2025 4:50 AM EDT [facility] Hematocrit 40.4 37.5 - 51.0 % 04/09/2025 4:50 AM EDT [facility] MCV 86.0 79.0 - 97.0 fL 04/09/2025 4:50 AM EDT [facility] MCH 27.7 26.6 - 33.0 pg 04/09/2025 4:50 [facility] MCHC 32.2 31.5 - 35.7 g/dL 04/09/2025 4:50 AM [facility] RDW 12.8 12.3 - 15.4 % 04/09/2025 4:50 AM [facility] RDW-SD 39.9 37.0 - 54.0 fl 04/09/2025 4:50 AM [facility] MPV 10.0 6.0 - 12.0 fL 04/09/2025 4:50 AM [facility] Platelets 211 140 - 450 10*3/mm3 04/09/2025 4:50 AM [facility] Neutrophil % 74.8 42.7 - 76.0 % 04/09/2025 4:50 AM EDT [facility] Lymphocyte % 15.4(L) 19.6 - 45.3 % 04/09/2025 4:50 AM EDT [facility] Monocyte % 8.5 5.0 - 12.0 % 04/09/2025 4:50 AM EDT [facility] Eosinophil % 0.6 0.3 - 6.2 % 04/09/2025 4:50 AM [facility] Basophil % 0.4 0.0 - 1.5 % 04/09/2025 4:50 AM EDT [facility] Immature Grans % 0.3 0.0 - 0.5 % 04/09/2025 4:50 AM EDT [facility] Neutrophils, Absolute 8.23(H) 1.70 - 7.00 10*3/mm3 04/09/2025 4:50 AM EDT [facility] Lymphocytes, Absolute 1.69 0.70 - 3.10 10*3/mm3 04/09/2025 4:50 AM EDT [facility] Monocytes, Absolute 0.94(H) 0.10 - 0.90 10*3/mm3 04/09/2025 4:50 AM EDT [facility] Eosinophils, Absolute 0.07 0.00 - 0.40 10*3/mm3 04/09/2025 4:50 AM EDT [facility] Basophils, Absolute 0.04 0.00 - 0.20 10*3/mm3 04/09/2025 4:50 AM EDT [facility] Immature Grans, Absolute 0.03 0.00 - 0.05 10*3/mm3 04/09/2025 4:50 AM EDT [facility] nRBC 0.0 0.0 - 0.2 /100 WBC 04/09/2025 4:50 AM EDT [facility] Blood Venipuncture / Unknown 04/09/2025 4:18 AM EDT 04/09/2025 4:31 AM EDT Sushil Dean Jr., MD LAB BLOOD ORDERABLES Fi nal Result [facility]
[address] [place] [address], * Heparin Anti-Xa (04/09/2025 4:18 AM EDT) Heparin Anti-Xa (UFH) 0.41 0.30 - 0.70 IU/ml 04/09/2025 4:53 AM EDT [facility] Blood Venipuncture / Unknown 04/09/2025 4:18 AM EDT 04/09/2025 4:31 AM EDT Una Wheeleroy PharmD LAB BLOOD ORDERABLES Final R esult [facility]
[address] [place] [address], * (ABNORMAL) Basic Metabolic Panel (04/09/2025 4:18 AM EDT) Pathologist [facility] Glucose 147(H) 65 - 99 mg/dL 04/09/2025 5:33 AM EDT [facility] BUN 23.0(H) 6.0 - 20.0 mg/dL 04/09/2025 5:33 AM EDT [facility] Creatinine 1.15 0.76 - 1.27 mg/dL 04/09/2025 5:33 AM EDT [facility] Sodium 135(L) 136 - 145 mmol/L 04/09/2025 5:33 AM EDT [facility] Potassium 4.2 3.5 - 5.2 mmol/L 04/09/2025 5:33 AM EDT [facility] Chloride 100 98 - 107 mmol/L 04/09/2025 5:33 AM EDT [facility] CO2 26.0 22.0 - 29.0 mmol/L 04/09/2025 5:33 AM EDT [facility] Calcium 8.2(L) 8.6 - 10.5 mg/dL 04/09/2025 5:33 AM EDT [facility] BUN/Creatinine Ratio 20.0 7.0 - 25.0 04/09/2025 5:33 AM EDT [facility] Anion Gap 9.0 5.0 - 15.0 mmol/L 04/09/2025 5:33 AM EDT [facility] eGFR 80.5 >60.0 mL/min/1.7 3 04/09/2025 5:33 AM EDT [facility] Blood Venipuncture / Unknown 04/09/2025 4:18 AM EDT 04/09/2025 4:29 AM EDT Narrative [facility] - 04/09/2025 5:33 AM [...] ORDERABLES Fi nal Result Performing Organization Address [facility] Co de Phone Number [facility]
[address] [place] [address], * Wound Culture - Swab, Leg, Right (04/08/2025 3:40 PM EDT) Wound Culture No growth at 3 days ALIZA 04/11/2025 10:40 AM EDT [facility] Gram Stain Few (2+) WBCs seen 04/11/2025 10:40 AM EDT [facility] Gram Stain No organisms seen 04/11/2025 10:40 AM EDT [facility] Swab Structure of right lower limb / Unknown 04/08/2025 3:40 PM EDT 04/08/2025 8:05 PM EDT Sushil Dean Jr., MD MICROBIOLOGY - GENERAL ORDERABLES Final Result Performing Organization Address City/[facility]/ZIP Co de Phone Number [facility]
[address] [phone], [facility]
[address] [place] [address], * Anaerobic Culture - Swab, Leg, Right (04/08/2025 3:40 PM EDT) Pathologist [facility] Anaerobic Culture No anaerobes isolated at 5 days ALIZA 04/13/2025 7:24 AM EDT [facility] Swab Structure of right lower limb / Unknown 04/08/2025 3:40 PM EDT 04/08/2025 8:05 PM EDT Sushil Dean Jr., MD MICROBIOLOGY - GENERAL ORDERABLES Final Result Performing Organization Address City/[facility] Co de Phone Number [facility]
[address] [place] [address], [place] [phone] * Scan Slide (04/08/2025 8:41 AM EDT) Pathologist [facility] RBC Morphology Normal Normal 04/08/2025 11:02 AM EDT [facility] WBC Morphology Normal Normal 04/08/2025 11:02 AM EDT [facility] Platelet Estimate Adequate Normal 04/08/2025 11:02 AM EDT [facility] Clumped Platelets Present None Seen 04/08/2025 11:02 AM EDT [facility] Blood Venipuncture / Unknown 04/08/2025 8:41 AM EDT 04/08/2025 9:10 AM EDT Una LundbergD LAB BLOOD ORDERABLES Final R esult Performing Organization Address City/[facility]/ZIP Co de Phone Number [facility]
[address] [place] [address], [place] [phone] * (ABNORMAL) CBC Auto Differential (04/08/2025 8:41 AM EDT) Pathologist [facility] WBC 10.07 3.40 - 10.80 10*3/mm3 04/08/2025 11:02 AM EDT [facility] RBC 5.01 4.14 - 5.80 10*6/mm3 04/08/2025 11:02 AM EDT [facility] Hemoglobin 14.0 13.0 - 17.7 g/dL 04/08/2025 11:02 AM [facility] Hematocrit 42.7 37.5 - 51.0 % 04/08/2025 11:02 AM [facility] MCV 85.2 79.0 - 97.0 fL 04/08/2025 11:02 AM [facility] MCH 27.9 26.6 - 33.0 pg 04/08/2025 11:02 AM [facility] MCHC 32.8 31.5 - 35.7 g/dL 04/08/2025 11:02 AM [facility] RDW 12.6 12.3 - 15.4 % 04/08/2025 11:02 AM [facility] RDW-SD 38.9 37.0 - 54.0 fl 04/08/2025 11:02 AM [facility] MPV 11.0 6.0 - 12.0 fL 04/08/2025 11:02 AM [facility] Platelets 118(L) 140 - 450 10*3/mm3 04/08/2025 11:02 AM [facility] Neutrophil % 85.1(H) 42.7 - 76.0 % 04/08/2025 11:02 AM [facility] Lymphocyte % 9.3(L) 19.6 - 45.3 % 04/08/2025 11:02 AM [facility] Monocyte % 4.6(L) 5.0 - 12.0 % 04/08/2025 11:02 AM [facility] Eosinophil % 0.3 0.3 - 6.2 % 04/08/2025 11:02 AM [facility] Basophil % 0.2 0.0 - 1.5 % 04/08/2025 11:02 AM [facility] Immature Grans % 0.5 0.0 - 0.5 % 04/08/2025 11:02 AM [facility] Neutrophils, Absolute 8.57(H) 1.70 - 7.00 10*3/mm3 04/08/2025 11:02 AM EDT [facility] Lymphocytes, Absolute 0.94 0.70 - 3.10 10*3/mm3 04/08/2025 11:02 AM EDT [facility] Monocytes, Absolute 0.46 0.10 - 0.90 10*3/mm3 04/08/2025 11:02 AM EDT [facility] Eosinophils, Absolute 0.03 0.00 - 0.40 10*3/mm3 04/08/2025 11:02 AM EDT [facility] Basophils, Absolute 0.02 0.00 - 0.20 10*3/mm3 04/08/2025 11:02 AM EDT [facility] Immature Grans, Absolute 0.05 0.00 - 0.05 10*3/mm3 04/08/2025 11:02 AM EDT [facility] nRBC 0.0 0.0 - 0.2 /100 WBC 04/08/2025 11:02 AM EDT [facility] Blood Venipuncture / Unknown 04/08/2025 8:41 AM EDT 04/08/2025 9:10 AM EDT Una Perla PharmD LAB BLOOD ORDERABLES Final R esult [facility]
[address] [place] [address], * (ABNORMAL) Basic Metabolic Panel (04/08/2025 8:41 AM EDT) Glucose 125(H) 65 - 99 mg/dL 04/08/2025 9:51 AM EDT [facility] BUN 13.2 6.0 - 20.0 mg/dL 04/08/2025 9:51 AM EDT [facility] Creatinine 0.69(L) 0.76 - 1.27 mg/dL 04/08/2025 9:51 AM EDT [facility] Sodium 136 136 - 145 mmol/L 04/08/2025 9:51 AM EDT [facility] Potassium 4.6 3.5 - 5.2 mmol/L 04/08/2025 9:51 AM EDT [facility] Chloride 102 98 - 107 mmol/L 04/08/2025 9:51 AM EDT [facility] CO2 23.5 22.0 - 29.0 mmol/L 04/08/2025 9:51 AM EDT [facility] Calcium 8.4(L) 8.6 - 10.5 mg/dL 04/08/2025 9:51 AM EDT [facility] BUN/Creatinine Ratio 19.1 7.0 - 25.0 04/08/2025 9:51 AM EDT [facility] Anion Gap 10.5 5.0 - 15.0 mmol/L 04/08/2025 9:51 AM EDT [facility] eGFR 117.0 >60.0 mL/min/1.7 3 04/08/2025 9:51 AM EDT [facility] Blood Venipuncture / Unknown 04/08/2025 8:41 AM EDT 04/08/2025 9:09 AM EDT [facility] - 04/08/2025 9:51 AM [...] Jr., MD LAB BLOOD ORDERABLES nal Result [facility]
[address] [place] [address], * Heparin Anti-Xa (04/08/2025 8:41 AM EDT) Heparin Anti-Xa (UFH) 0.33 0.30 - 0.70 IU/ml 04/08/2025 9:40 AM EDT [facility] Blood Venipuncture / Unknown 04/08/2025 8:41 AM EDT 04/08/2025 9:10 AM EDT Sushil Dean Jr., MD LAB BLOOD ORDERABLES Fi nal Result [facility]
[address] [place] [address], * FL C Arm During Surgery (04/07/2025 9:32 PM EDT) Narrative SYSTEMGENERATED, DOCUMENTATION - 04/07/2025 9:38 PM EDT This procedure was auto-finalized with no dictation required. Sushil Dean Jr., MD IMG FLUOROSCOPY ORDERAB LES Final Result * Wound Culture - Swab, Leg, Right (04/07/2025 9:14 PM EDT) Wound Culture No growth at 3 days ALIZA 04/11/2025 10:40 AM EDT [facility] Gram Stain Occasional WBCs seen 04/11/2025 10:40 AM EDT [facility] Gram Stain No organisms seen 04/11/2025 10:40 AM EDT [facility] Swab Structure of right lower limb / Unknown Collection / Unknown 04/07/2025 9:14 PM EDT 04/08/2025 4:36 AM EDT Sushil Dean Jr., MD MICROBIOLOGY - GENERAL ORDERABLES Final Result [facility]
[address] [place] [address], [facility]
[address] [place] [address], * Anaerobic Culture - Swab, Leg, Right (04/07/2025 9:14 PM EDT) Anaerobic Culture No anaerobes isolated at 5 days ALIZA 04/13/2025 7:21 AM EDT [facility] Swab Structure of right lower limb / Unknown Collection / Unknown 04/07/2025 9:14 PM EDT 04/08/2025 4:36 AM EDT Sushil Dean Jr., MD MICROBIOLOGY - GENERAL ORDERABLES Final Result Performing Organization Address City/[facility]/ZIP Co de Phone Number [facility]
[address] [place] [address], * Anaerobic Culture - Tissue, Leg (04/07/2025 9:13 PM EDT) Anaerobic Culture No anaerobes isolated at 5 days ALIZA 04/13/2025 7:21 AM EDT [facility] Tissue Lower limb structure / Unknown Collection / Unknown 04/07/2025 9:13 PM EDT 04/08/2025 4:54 AM EDT Jason Álvarez DO MICROBIOLOGY - GENERAL ORDERABLE S Final Result [facility]
[address] [place] [address], * Tissue / Bone Culture - Tissue, Leg, Right (04/07/2025 9:13 PM EDT) Tissue Culture No growth at 3 days ALIZA 04/11/2025 10:36 AM EDT [facility] Gram Stain Rare (1+) WBCs seen 04/11/2025 10:36 AM EDT [facility] Gram Stain No organisms seen 04/11/2025 10:36 AM EDT [facility] Tissue Structure of right lower limb / Unknown 04/07/2025 9:13 PM EDT 04/08/2025 4:54 AM EDT Sushil Dean Jr., MD MICROBIOLOGY - GENERAL ORDERABLES Final Result Performing Organization Address City/[facility]/ZIP Co de Phone Number [facility]
[address] [place] [address], [place] [phone] [place] [facility]
[address] [place] [address], [place] [phone] * (ABNORMAL) Wound Culture - Swab, Leg, Right (04/07/2025 9:07 PM EDT) Wound Culture Light growth (2+) Staphylococcus aureus, MRSA(A) ALIZA 04/10/2025 10:38 AM EDT [facility] Comment: Methicillin resistant Staphylococcus aureus, Patient may be an isolation risk. Gram Stain Few (2+) WBCs seen 04/10/2025 10:38 AM EDT [facility] Gram Stain No organisms seen 10:38 AM EDT [facility] Swab Structure of right [...] MD MICROBIOLOGY - GENERAL ORDERABLES Final Result [facility]
[address] [place] [address], [facility]
[address] [place] [address], * Anaerobic Culture - Swab, Leg, Right (04/07/2025 9:07 PM EDT) Pathologist [facility] Anaerobic Culture No anaerobes isolated at 5 days ALIZA 04/13/2025 7:21 AM EDT [facility] Swab Structure of right lower limb / Unknown Collection / Unknown 04/07/2025 9:07 PM EDT 04/08/2025 4:36 AM EDT Sushil Dean Jr., MD MICROBIOLOGY - GENERAL ORDERABLES Final Result Performing Organization Address [facility] Co de Phone Number [facility]
[address] [place] [address], * Heparin Anti-Xa (04/07/2025 9:10 AM EDT) [facility] Heparin Anti-Xa (UFH) 0.30 0.30 - 0.70 IU/ml 04/07/2025 10:12 AM EDT [facility] Blood Venipuncture / Unknown 04/07/2025 9:10 AM EDT 04/07/2025 9:38 AM EDT Una LundbergD LAB BLOOD ORDERABLES Final R esult Performing Organization Address City/[facility]/ZIP Co de Phone Number [facility]
[address] [place] [address], * (ABNORMAL) CBC Auto Differential (04/07/2025 9:10 AM EDT) Pathologist [facility] WBC 8.63 3.40 - 10.80 10*3/mm3 04/07/2025 9:50 AM EDT [facility] RBC 5.23 4.14 - 5.80 10*6/mm3 04/07/2025 9:50 [facility] Hemoglobin 14.7 13.0 - 17.7 g/dL 04/07/2025 9:50 AM [facility] Hematocrit 44.8 37.5 - 51.0 % 04/07/2025 9:50 AM [facility] MCV 85.7 79.0 - 97.0 fL 04/07/2025 9:50 AM EDT [facility] MCH 28.1 26.6 - 33.0 pg 04/07/2025 9:50 AM [facility] MCHC 32.8 31.5 - 35.7 g/dL 04/07/2025 9:50 AM [facility] RDW 12.8 12.3 - 15.4 % 04/07/2025 9:50 AM [facility] RDW-SD 39.9 37.0 - 54.0 fl 04/07/2025 9:50 AM [facility] MPV 10.8 6.0 - 12.0 fL 04/07/2025 9:50 AM [facility] Platelets 149 140 - 450 10*3/mm3 04/07/2025 9:50 AM [facility] Neutrophil % 66.7 42.7 - 76.0 % 04/07/2025 9:50 AM [facility] Lymphocyte % 20.5 19.6 - 45.3 % 04/07/2025 9:50 AM EDT [facility] Monocyte % 9.8 5.0 - 12.0 % 04/07/2025 9:50 AM [facility] Eosinophil % 2.1 0.3 - 6.2 % 04/07/2025 9:50 AM [facility] Basophil % 0.3 0.0 - 1.5 % 04/07/2025 9:50 AM [facility] Immature Grans % 0.6(H) 0.0 - 0.5 % 04/07/2025 9:50 AM EDT [facility] Neutrophils, Absolute 5.75 1.70 - 7.00 10*3/mm3 04/07/2025 9:50 AM EDT [facility] Lymphocytes, Absolute 1.77 0.70 - 3.10 10*3/mm3 04/07/2025 9:50 AM EDT [facility] Monocytes, Absolute 0.85 0.10 - 0.90 10*3/mm3 04/07/2025 9:50 AM EDT [facility] Eosinophils, Absolute 0.18 0.00 - 0.40 10*3/mm3 04/07/2025 9:50 AM EDT [facility] Basophils, Absolute 0.03 0.00 - 0.20 10*3/mm3 04/07/2025 9:50 AM EDT [facility] Immature Grans, Absolute 0.05 0.00 - 0.05 10*3/mm3 04/07/2025 9:50 AM EDT [facility] nRBC 0.0 0.0 - 0.2 /100 WBC 04/07/2025 9:50 AM EDT [facility] Blood Venipuncture / Unknown 04/07/2025 9:10 AM EDT 04/07/2025 9:38 AM EDT us Jason Álvarez DO LAB BLOOD ORDERABLES Final Resul t [facility]
[address] [place] [address], * (ABNORMAL) Basic Metabolic Panel (04/07/2025 9:10 AM EDT) Glucose 112(H) 65 - 99 mg/dL 04/07/2025 10:19 AM EDT [facility] BUN 13.1 6.0 - 20.0 mg/dL 04/07/2025 10:19 AM EDT [facility] Creatinine 0.77 0.76 - 1.27 mg/dL 04/07/2025 10:19 AM EDT [facility] Sodium 139 136 - 145 mmol/L 04/07/2025 10:19 AM EDT [facility] Potassium 4.2 3.5 - 5.2 mmol/L 04/07/2025 10:19 AM EDT [facility] Comment:Specimen hemolyzed. Result may be falsely elevated. Chloride 105 98 - 107 mmol/L 04/07/2025 10:19 AM EDT [facility] CO2 24.8 22.0 - 29.0 mmol/L 04/07/2025 10:19 AM EDT [facility] Calcium 8.6 8.6 - 10.5 mg/dL 04/07/2025 10:19 AM T [facility] BUN/Creatinine Ratio 17.0 7.0 - 25.0 04/07/2025 10:19 AM EDT [facility] Anion Gap 9.2 5.0 - 15.0 mmol/L 04/07/2025 10:19 AM T [facility] eGFR 113.2 >60.0 mL/min/1.7 3 04/07/2025 10:19 AM T [facility] Blood Venipuncture / Unknown 04/07/2025 9:10 AM EDT 04/07/2025 9:38 AM EDT Narrative [facility] - 04/07/2025 10:19 AM [...] DO LAB BLOOD ORDERABLES Final Resul t [facility]
[address] [place] [address], * MRI Tibia Fibula Right With & [...] Buenrostro 04/07/2025 9:58 AM EDT Workstation ID: [id number] Narrative 04/07/2025 9:58 AM EDT MRI TIBIA [...] Buenrostro 04/07/2025 9:58 AM EDT Workstation ID: [id number] us Sushil Dean Jr., MD [facility] [place] ORDERABLES Mary Beth l Result * Heparin Anti-Xa (04/07/2025 1:42 AM EDT) Heparin Anti-Xa (UFH) 0.38 0.30 - 0.70 IU/ml 04/07/2025 2:14 AM EDT [facility] Blood Venipuncture / Unknown 04/07/2025 1:42 AM EDT 04/07/2025 1:54 AM EDT Chelsie Navarretesapna [facility] LAB BLOOD ORDERABLES Final R esult Performing Organization Address City/[facility]/ZIP Co de Phone Number [facility]
[address] [place] [address], * Heparin Anti-Xa (04/06/2025 7:16 PM EDT) Pathologist [facility] Heparin Anti-Xa (UFH) 0.33 0.30 - 0.70 IU/ml 04/06/2025 7:50 PM EDT [facility] Blood Venipuncture / Unknown 04/06/2025 7:16 PM EDT 04/06/2025 7:35 PM EDT Cherri Beatty [facility] LAB BLOOD ORDERABLES Final Res ult Performing Organization Address City/[facility] Co de Phone Number [facility]
[address] [place] [address], * Potassium (04/06/2025 7:16 PM EDT) Pathologist [facility] Potassium 4.0 3.5 - 5.2 mmol/L 04/06/2025 7:53 PM EDT [facility] Blood Venipuncture / Unknown 04/06/2025 7:16 PM EDT 04/06/2025 7:35 PM EDT Jason Álvarez DO LAB BLOOD ORDERABLES Final Resul t Performing Organization Address City/[facility]/ZIP Co de Phone Number [facility]
[address] [place] [address], * (ABNORMAL) Heparin Anti-Xa (04/06/2025 12:36 PM EDT) Heparin Anti-Xa (UFH) 0.24(L) 0.30 - 0.70 IU/ml 04/06/2025 1:23 PM EDT [facility] Blood Venipuncture / Unknown 04/06/2025 12:36 PM EDT 04/06/2025 1:07 PM EDT Una LundbergD LAB BLOOD ORDERABLES Final R esult [facility]
[address] [place] [address], * (ABNORMAL) Heparin Anti-Xa (04/06/2025 3:42 AM EDT) [facility] Heparin Anti-Xa (UFH) 0.25(L) 0.30 - 0.70 IU/ml 04/06/2025 5:30 AM EDT [facility] Blood Venipuncture / Unknown 04/06/2025 3:42 AM EDT 04/06/2025 4:59 AM EDT Chelsie Turpin [facility] LAB BLOOD ORDERABLES Final R esult [facility]
[address] [place] [address], * (ABNORMAL) Basic Metabolic Panel (04/06/2025 3:42 AM EDT) [facility] Glucose 94 65 - 99 mg/dL 04/06/2025 5:59 AM EDT [facility] BUN 12.8 6.0 - 20.0 mg/dL 04/06/2025 5:59 AM EDT [facility] Creatinine 0.80 0.76 - 1.27 mg/dL 04/06/2025 5:59 AM EDT [facility] Sodium 138 136 - 145 mmol/L 04/06/2025 5:59 AM EDT [facility] Potassium 3.6 3.5 - 5.2 mmol/L 04/06/2025 5:59 AM EDT [facility] Chloride 103 98 - 107 mmol/L 04/06/2025 5:59 AM EDT [facility] CO2 24.2 22.0 - 29.0 mmol/L 04/06/2025 5:59 AM EDT [facility] Calcium 8.0(L) 8.6 - 10.5 mg/dL 04/06/2025 5:59 AM EDT [facility] BUN/Creatinine Ratio 16.0 7.0 - 25.0 04/06/2025 5:59 AM EDT [facility] Anion Gap 10.8 5.0 - 15.0 mmol/L 04/06/2025 5:59 AM EDT [facility] eGFR 111.9 >60.0 mL/min/1.7 3 04/06/2025 5:59 AM EDT [facility] Blood Venipuncture / Unknown 04/06/2025 3:42 AM EDT 04/06/2025 5:20 AM EDT Narrative [facility] - 04/06/2025 5:59 AM [...] DO LAB BLOOD ORDERABLES Final Resul t [facility]
[address] [place] [address], * (ABNORMAL) CBC Auto Differential (04/06/2025 3:41 AM EDT) WBC 10.86(H) 3.40 - 10.80 10*3/mm3 04/06/2025 5:04 AM EDT [facility] RBC 5.08 4.14 - 5.80 10*6/mm3 04/06/2025 5:04 AM EDT [facility] Hemoglobin 13.9 13.0 - 17.7 g/dL 04/06/2025 5:04 AM EDT [facility] Hematocrit 43.7 37.5 - 51.0 % 04/06/2025 5:04 AM EDT [facility] MCV 86.0 79.0 - 97.0 fL 04/06/2025 5:04 AM EDT [facility] MCH 27.4 26.6 - 33.0 pg 04/06/2025 5:04 AM EDT [facility] MCHC 31.8 31.5 - 35.7 g/dL 04/06/2025 5:04 AM EDT [facility] RDW 12.8 12.3 - 15.4 % 04/06/2025 5:04 AM EDT [facility] RDW-SD 40.0 37.0 - 54.0 fl 04/06/2025 5:04 AM EDT [facility] MPV 11.7 6.0 - 12.0 fL 04/06/2025 5:04 AM EDT [facility] Platelets 115(L) 140 - 450 10*3/mm3 04/06/2025 5:04 AM EDT [facility] Neutrophil % 65.3 42.7 - 76.0 % 04/06/2025 5:04 AM EDT [facility] Lymphocyte % 20.5 19.6 - 45.3 % 04/06/2025 5:04 AM EDT [facility] Monocyte % 11.8 5.0 - 12.0 % 04/06/2025 5:04 AM EDT [facility] Eosinophil % 1.8 0.3 - 6.2 % 04/06/2025 5:04 AM EDT [facility] Basophil % 0.3 0.0 - 1.5 % 04/06/2025 5:04 AM EDT [facility] Immature Grans % 0.3 0.0 - 0.5 % 04/06/2025 5:04 AM EDT [facility] Neutrophils, Absolute 7.09(H) 1.70 - 7.00 10*3/mm3 04/06/2025 5:04 AM EDT [facility] Lymphocytes, Absolute 2.23 0.70 - 3.10 10*3/mm3 04/06/2025 5:04 AM EDT [facility] Monocytes, Absolute 1.28(H) 0.10 - 0.90 10*3/mm3 04/06/2025 5:04 AM EDT [facility] Eosinophils, Absolute 0.20 0.00 - 0.40 10*3/mm3 04/06/2025 5:04 AM EDT [facility] Basophils, Absolute 0.03 0.00 - 0.20 10*3/mm3 04/06/2025 5:04 AM EDT [facility] Immature Grans, Absolute 0.03 0.00 - 0.05 10*3/mm3 04/06/2025 5:04 AM EDT [facility] nRBC 0.0 0.0 - 0.2 /100 WBC 04/06/2025 5:04 AM EDT [facility] Blood Venipuncture / Unknown 04/06/2025 3:41 AM EDT 04/06/2025 4:58 AM EDT us Jason Álvarez DO LAB BLOOD ORDERABLES Final Resul t [facility]
[address] [place] [address], * Heparin Anti-Xa (04/05/2025 8:43 PM EDT) Heparin Anti-Xa (UFH) 0.38 0.30 - 0.70 IU/ml 04/05/2025 9:09 PM EDT [facility] Blood Venipuncture / Unknown 04/05/2025 8:43 PM EDT 04/05/2025 8:55 PM EDT Cherri Beatty [facility] LAB BLOOD ORDERABLES Final Res ult Performing Organization Address [facility] Co de Phone Number [facility]
[address] [place] [address], * CK (04/05/2025 12:15 PM EDT) Creatine Kinase 140 20 - 200 U/L 04/05/2025 1:31 PM EDT [facility] Blood Venipuncture / Unknown 04/05/2025 12:15 PM EDT 04/05/2025 1:03 PM EDT Carlton Mead MD LAB BLOOD ORDERABLES Final R esult Performing Organization Address [facility] Co de Phone Number [facility]
[address] [place] [address], [place] [phone] * (ABNORMAL) Heparin Anti-Xa (04/05/2025 12:15 PM EDT) Heparin Anti-Xa (UFH) 0.17(L) 0.30 - 0.70 IU/ml 04/05/2025 1:21 PM EDT [facility] Blood Venipuncture / Unknown 04/05/2025 12:15 PM EDT 04/05/2025 1:04 PM EDT Una LundbergD LAB BLOOD ORDERABLES Final R esult Performing Organization Address City/[facility]/ZIP Co de Phone Number [facility]
[address] [place] [address], * (ABNORMAL) aPTT (04/05/2025 3:54 AM EDT) [facility] PTT 35.3(L) 60.0 - 90.0 seconds 04/05/2025 4:31 AM EDT [facility] Blood Venipuncture / Unknown 04/05/2025 3:54 AM EDT 04/05/2025 4:15 AM EDT Narrative [facility] - 04/05/2025 4:31 AM EDT PTT = The equivalent PTT values for the therapeutic range of heparin levels at 0.3 to 0.5 U/ml are 60 to 70 seconds. Una Perla [employer] LAB BLOOD ORDERABLES Final R esult Performing Organization Address [facility] Co de Phone Number [facility]
[address] [place] [address], * Heparin Anti-Xa (04/05/2025 3:54 AM EDT) [facility] Heparin Anti-Xa (UFH) 0.30 0.30 - 0.70 IU/ml 04/05/2025 4:32 AM EDT [facility] Blood Venipuncture / Unknown 04/05/2025 3:54 AM EDT 04/05/2025 4:15 AM EDT [employer] LAB BLOOD ORDERABLES Final R esult Performing Organization Address City/[facility] Co de Phone Number [facility]
[address] [place] [address], * (ABNORMAL) CBC Auto Differential (04/05/2025 3:54 AM EDT) [facility] WBC 11.18(H) 3.40 - 10.80 10*3/mm3 04/05/2025 4:20 AM EDT [facility] RBC 5.00 4.14 - 5.80 10*6/mm3 04/05/2025 4:20 AM EDT [facility] Hemoglobin 13.9 13.0 - 17.7 g/dL 04/05/2025 4:20 AM EDT [facility] Hematocrit 42.4 37.5 - 51.0 % 04/05/2025 4:20 AM EDT [facility] MCV 84.8 79.0 - 97.0 fL 04/05/2025 4:20 AM EDT [facility] MCH 27.8 26.6 - 33.0 pg 04/05/2025 4:20 [facility] MCHC 32.8 31.5 - 35.7 g/dL 04/05/2025 4:20 AM [facility] RDW 12.9 12.3 - 15.4 % 04/05/2025 4:20 AM [facility] RDW-SD 39.7 37.0 - 54.0 fl 04/05/2025 4:20 AM [facility] MPV 10.2 6.0 - 12.0 fL 04/05/2025 4:20 AM [facility] Platelets 160 140 - 450 10*3/mm3 04/05/2025 4:20 AM [facility] Neutrophil % 73.5 42.7 - 76.0 % 04/05/2025 4:20 AM [facility] Lymphocyte % 14.0(L) 19.6 - 45.3 % 04/05/2025 4:20 AM EDT [facility] Monocyte % 11.0 5.0 - 12.0 % 04/05/2025 4:20 AM [facility] Eosinophil % 0.8 0.3 - 6.2 % 04/05/2025 4:20 AM [facility] Basophil % 0.3 0.0 - 1.5 % 04/05/2025 4:20 AM EDT [facility] Immature Grans % 0.4 0.0 - 0.5 % 04/05/2025 4:20 AM EDT [facility] Neutrophils, Absolute 8.23(H) 1.70 - 7.00 10*3/mm3 04/05/2025 4:20 AM EDT [facility] Lymphocytes, Absolute 1.56 0.70 - 3.10 10*3/mm3 04/05/2025 4:20 AM EDT [facility] Monocytes, Absolute 1.23(H) 0.10 - 0.90 10*3/mm3 04/05/2025 4:20 AM EDT [facility] Eosinophils, Absolute 0.09 0.00 - 0.40 10*3/mm3 04/05/2025 4:20 AM EDT [facility] Basophils, Absolute 0.03 0.00 - 0.20 10*3/mm3 04/05/2025 4:20 AM EDT [facility] Immature Grans, Absolute 0.04 0.00 - 0.05 10*3/mm3 04/05/2025 4:20 AM EDT [facility] nRBC 0.0 0.0 - 0.2 /100 WBC 04/05/2025 4:20 AM EDT [facility] Blood Venipuncture / Unknown 04/05/2025 3:54 AM EDT 04/05/2025 4:16 AM EDT Una Perla PharmD LAB BLOOD ORDERABLES Final R esult [facility]
[address] [place] [address], * (ABNORMAL) Basic Metabolic Panel (04/05/2025 3:54 AM EDT) [facility] Signature Glucose 152(H) 65 - 99 mg/dL 04/05/2025 4:40 AM EDT [facility] BUN 17.3 6.0 - 20.0 mg/dL 04/05/2025 4:40 AM T [facility] Creatinine 0.92 0.76 - 1.27 mg/dL 04/05/2025 4:40 AM EDT [facility] Sodium 136 136 - 145 mmol/L 04/05/2025 4:40 AM EDT [facility] Potassium 3.9 3.5 - 5.2 mmol/L 04/05/2025 4:40 AM EDT [facility] Chloride 103 98 - 107 mmol/L 04/05/2025 4:40 AM EDT [facility] CO2 24.0 22.0 - 29.0 mmol/L 04/05/2025 4:40 AM T [facility] Calcium 7.8(L) 8.6 - 10.5 mg/dL 04/05/2025 4:40 AM [facility] BUN/Creatinine Ratio 18.8 7.0 - 25.0 04/05/2025 4:40 AM T [facility] Anion Gap 9.0 5.0 - 15.0 mmol/L 04/05/2025 4:40 AM [facility] eGFR 105.2 >60.0 mL/min/1.7 3 04/05/2025 4:40 AM [facility] Blood Venipuncture / Unknown 04/05/2025 3:54 AM EDT 04/05/2025 4:15 AM EDT [facility] - 04/05/2025 4:40 AM [...] ORDERABLES Final Re sult Performing Organization Address [facility] Co de Phone Number [facility]
[address] [place] [address], * (ABNORMAL) aPTT (04/05/2025 12:18 AM EDT) PTT 33.6(L) 60.0 - 90.0 seconds 04/05/2025 12:53 AM EDT [facility] Blood Venipuncture / Unknown 04/05/2025 12:18 AM EDT 04/05/2025 12:37 AM EDT Narrative [facility] - 04/05/2025 12:53 AM EDT PTT = The equivalent PTT values for the therapeutic range of heparin levels at 0.3 to 0.5 U/ml are 60 to 70 seconds. Una Perla PharmD LAB BLOOD ORDERABLES Final R esult Performing Organization Address [facility] Co de Phone Number [facility]
[address] [place] [address], [place] [phone] * (ABNORMAL) Protime-INR (04/05/2025 12:18 AM EDT) Protime 15.9(H) 12.2 - 15.3 Seconds 04/05/2025 12:53 AM EDT [facility] INR 1.19(H) 0.89 - 1.12 04/05/2025 12:53 AM EDT [facility] Blood Venipuncture / Unknown 04/05/2025 12:18 AM EDT 04/05/2025 12:37 AM EDT Una Perla PharmD LAB BLOOD ORDERABLES Final R esult Performing Organization Address City/[facility] Co de Phone Number [facility]
[address] [place] [address], [place] [phone] * Heparin Anti-Xa (04/05/2025 12:18 AM EDT) Heparin Anti-Xa (UFH) 0.39 0.30 - 0.70 IU/ml 04/05/2025 12:54 AM EDT [facility] Blood Venipuncture / Unknown 04/05/2025 12:18 AM EDT 04/05/2025 12:37 AM EDT Una Perla PharmD LAB BLOOD ORDERABLES Final R esult [facility]
[address] [place] [address], * MRI Tibia Fibula Right With & [...] MD 04/04/2025 11:00 PM EDT Workstation ID: [id number] Narrative 04/04/2025 11:00 PM EDT MRI TIBIA [...] MD 04/04/2025 11:00 PM EDT Workstation ID: [id number] us Leonora Shepherd MD IMG MRI ORDERABLES Final Resu lt * POC Creatinine (04/04/2025 2:49 PM EDT) [facility] Creatinine 1.10 0.60 - 1.30 mg/dL 04/07/2025 7:14 PM EDT [facility] Comment:Serial Number: [id number] 7Operator: [id number] Venous Blood 04/04/2025 2:49 PM EDT 04/07/2025 7:14 PM EDT Jason Álvarez DO POINT OF CARE TEST ORDERABLES Fi nal Result [facility]
[address] [place] [address], * (ABNORMAL) CBC Auto Differential (04/04/2025 2:47 PM EDT) [facility] WBC 12.72(H) 3.40 - 10.80 10*3/mm3 04/04/2025 2:56 PM EDT [facility] RBC 5.64 4.14 - 5.80 10*6/mm3 04/04/2025 2:56 PM EDT [facility] Hemoglobin 15.3 13.0 - 17.7 g/dL 04/04/2025 2:56 PM EDT [facility] Hematocrit 47.9 37.5 - 51.0 % 04/04/2025 2:56 PM EDT [facility] MCV 84.9 79.0 - 97.0 fL 04/04/2025 2:56 PM EDT [facility] MCH 27.1 26.6 - 33.0 pg 04/04/2025 2:56 PM EDT [facility] MCHC 31.9 31.5 - 35.7 g/dL 04/04/2025 2:56 PM EDT [facility] RDW 13.1 12.3 - 15.4 % 04/04/2025 2:[facility] RDW-SD 40.3 37.0 - 54.0 fl 04/04/2025 2:56 PM EDT [facility] MPV 9.4 6.0 - 12.0 fL 04/04/2025 2:56 PM EDT [facility] Platelets 232 140 - 450 10*3/mm3 04/04/2025 2:56 PM EDT [facility] Neutrophil % 74.9 42.7 - 76.0 % 04/04/2025 2:56 PM EDT [facility] Lymphocyte % 13.1(L) 19.6 - 45.3 % 04/04/2025 2:56 [facility] Monocyte % 11.2 5.0 - 12.0 % 04/04/2025 2:56 PM [facility] Eosinophil % 0.4 0.3 - 6.2 % 04/04/2025 2:56 PM EDT [facility] Basophil % 0.2 0.0 - 1.5 % 04/04/2025 2:56 PM [facility] Immature Grans % 0.2 0.0 - 0.5 % 04/04/2025 2:56 PM [facility] Neutrophils, Absolute 9.52(H) 1.70 - 7.00 10*3/mm3 04/04/2025 2:56 PM [facility] Lymphocytes, Absolute 1.66 0.70 - 3.10 10*3/mm3 04/04/2025 2:56 PM EDT [facility] Monocytes, Absolute 1.43(H) 0.10 - 0.90 10*3/mm3 04/04/2025 2:56 PM EDT [facility] Eosinophils, Absolute 0.05 0.00 - 0.40 10*3/mm3 04/04/2025 2:56 PM [facility] Basophils, Absolute 0.03 0.00 - 0.20 10*3/mm3 04/04/2025 2:56 PM EDT [facility] Immature Grans, Absolute 0.03 0.00 - 0.05 10*3/mm3 04/04/2025 2:56 PM EDT [facility] nRBC 0.0 0.0 - 0.2 /100 WBC 04/04/2025 2:56 PM EDT [facility] Blood Venipuncture / Unknown 04/04/2025 2:47 PM EDT 04/04/2025 2:52 PM EDT Mario Ortiz [facility] BLOOD ORDERABLES Fin al Result Performing Organization Address City/[facility]/ZIP Co de Phone Number [facility]
[address] [place] [address], * (ABNORMAL) C-reactive Protein (04/04/2025 2:47 PM EDT) C-Reactive Protein 8.57(H) 0.00 - 0.50 mg/dL 04/04/2025 3:26 PM EDT [facility] Blood Venipuncture / Unknown 04/04/2025 2:47 PM EDT 04/04/2025 2:52 PM EDT Mario Ortiz [facility] BLOOD ORDERABLES Fin al Result Performing Organization Address [facility] de Phone Number [facility]
[address] [place] [address], * (ABNORMAL) Sedimentation Rate (04/04/2025 2:47 PM EDT) Sed Rate 51(H) 0 - 15 mm/hr 04/04/2025 3:06 PM EDT [facility] Blood Venipuncture / Unknown 04/04/2025 2:47 PM EDT 04/04/2025 2:52 PM EDT [facility] BLOOD ORDERABLES Fin al Result Performing Organization Address City/[facility]/ZIP Co de Phone Number [facility] LABORATORY
[address] [place] [address], * Comprehensive Metabolic Panel (04/04/2025 2:47 PM EDT) [facility] Glucose 90 65 - 99 mg/dL 04/04/2025 3:26 PM EDT [facility] BUN 18.3 6.0 - 20.0 mg/dL 04/04/2025 3:26 PM EDT [facility] Creatinine 0.94 0.76 - 1.27 mg/dL 04/04/2025 3:26 PM EDT [facility] Sodium 136 136 - 145 mmol/L 04/04/2025 3:26 PM EDT [facility] Potassium 3.8 3.5 - 5.2 mmol/L 04/04/2025 3:26 PM EDT [facility] Chloride 100 98 - 107 mmol/L 04/04/2025 3:26 PM EDT [facility] CO2 25.3 22.0 - 29.0 mmol/L 04/04/2025 3:26 PM EDT [facility] Calcium 8.6 8.6 - 10.5 mg/dL 04/04/2025 3:26 PM EDT [facility] Total Protein 7.3 6.0 - 8.5 g/dL 04/04/2025 3:26 PM EDT [facility] Albumin 4.1 3.5 - 5.2 g/dL 04/04/2025 3:26 PM EDT [facility] ALT (SGPT) 26 1 - 41 U/L 04/04/2025 3:26 PM EDT [facility] AST (SGOT) 25 1 - 40 U/L 04/04/2025 3:26 PM EDT [facility] Alkaline Phosphatase 106 39 - 117 U/L 04/04/2025 3:26 PM EDT [facility] Total Bilirubin 1.0 0.0 - 1.2 mg/dL 04/04/2025 3:26 PM EDT [facility] Globulin 3.2 gm/dL 04/04/2025 3:26 PM EDT [facility] Comment:Calculated Result A/G Ratio 1.3 g/dL 04/04/2025 3:26 PM EDT [facility] BUN/Creatinine Ratio 19.5 7.0 - 25.0 04/04/2025 3:26 PM EDT [facility] Anion Gap 10.7 5.0 - 15.0 mmol/L 04/04/2025 3:26 PM EDT [facility] eGFR 102.5 >60.0 mL/min/1.7 3 04/04/2025 3:26 PM EDT [facility] Blood Venipuncture / Unknown 04/04/2025 2:47 PM EDT 04/04/2025 2:52 PM EDT Narrative [facility] - 04/04/2025 3:26 PM [...] DO LAB BLOOD ORDERABLES Fin al Result [facility]
[address] [place] [address], documented in this encounter Visit Diagnoses Diagnosis [...] 04/05/2025 3:33 PM EDT 2,000 Units heparin 85587 units/250 mL (100 units/mL) in 0.45 % [...] BPA Driven Protocol Open Order & [facility] Electrolyte Replacement Protocol Algorithm to View Details [...] BPA Driven Protocol Open Order & [facility] Electrolyte Replacement Protocol Algorithm to View Details [...] disposal. 0831 (Given - Provider: Amber Salazar, [facility])194 (Given - Provider: Anahy Marcelino, [facility])2129 (Canceled Entry - Provider: Anahy Marcelino RRT [...] Continuous Medication Order 04/09/2025 04/10/2025 04/11/2025 heparin [id number] units/250 mL (100 units/mL) in 0.45 % [...] BPA Driven Protocol Open Order & [facility] Electrolyte Replacement Protocol Algorithm to View Details [...] BPA Driven Protocol Open Order & [facility] Electrolyte Replacement Protocol Algorithm to View Details [...] documented as of this encounter Care Teams Home Care Associate Relationship Specialty Start Date End Date Provider, [place] [address] PCP - General 05/09/23 documented as of this encounter
--- OUTSIDE RECORDS SUMMARY | 2025-04-07 18:00 | XMS_ITS | Encounter Summary ---
[facility] Organization [facility] Address [address] [place] [address] Care Team Providers Care Finding Fastener Name Role Phone Provider, No Known Primary Care Provider Unavail able Reason for Visit * Reason Comments Leg Swelling * Auth/Cert Specialty Diagnoses / Procedures Referred By Contac t Referred To Contact Diagnoses Right BKA infection Referral ID Status Reason Start Date Expiration Date Visits Re quested Visits Authorized [id number] 1 1 Encounter Details Date Type Department Care Team (Late st Contact Info) Description 04/07/2025 6:00 PM EDT - 04/07/2025 6:52 PM EDT Surgery [facility] OR [address] [place] [address] Sushil Dean Jr., MD [address] [place] [address] [address] [id number] LEG DEBRIDEMENT, IRRIGATION Social History Tobacco Use Types Packs/Day Years Used Date Smoking Tobacco: Never Smokeless Tobacco: Never Tobacco Cessation:Counseling Given: Not Answered Alcohol Use Standard Drinks/Week Comments Not Currently 0 (1 standard drink = 0.6 oz pur e alcohol) [facility] Utilities Answer Date Recorded In the past 12 months has [employer] electric, gas, oil, or water company threatened [...] or training? Not on file Preferred Language Niuean 04/07/2025 Sex and Gender Information Value Date [...] 2:25 PM EDT Cherri Grimm RN * [place] Suicide Severity Rating Scale (Screener/Recent Self-Report) Question [...] from the original note were not included. [facility] Medicine Services DISCHARGE SUMMARY Patient [...] Date/Time Wound Culture - Swab, Leg, Right [[id number]] (Abnormal) (Susceptibility) Collected: 04/07/252106 Lab Status: Final [...] Units Date/Time FL C Arm During Surgery [[id number]] Resulted: 04/07/252137 Updated: 04/07/252137 Narrative: This procedure was auto-finalized with no dictation required. MRI Tibia Fibula Right With & Without Contrast [[id number]] Collected: 04/07/25 0938 Updated: 04/07/25 1001 Narrative: [...] Buenrostro 04/07/2025 9:58 AM EDT Workstation ID: [id number] MRI Tibia Fibula Right With & Without Contrast [[id number]] Collected: 04/04/252256 Updated: 04/04/252302 Narrative: MRI TIBIA [...] represent a small area of phlegmonous change ([id number] image 10) measuring approximately 1.6 cm which [...] MD 04/04/2025 11:00 PM EDT Workstation ID: [id number] Pending Labs Order Current Status Fungus Culture [...] 3:42 PM EDT Associated attestation - Jadyn Richradson DO - 04/11/2025 3:42 PM EDT I have reviewed this documentation and agree. * Omar Zavala RN - 04/10/2025 4:29 PM EDT Images from the original note were not included. Won Dennis (44 y.o. Male) Date of 1980 Social Security Number [id number] [place] [address] [place] [address] Yarsani Unknown Marital Status Unknown Admission Date 04/04/2025 Admission Type Emergency Admitting Provider Jadyn Richardson DO Attending Provider Jadyn Richardson DO Department, Room/Bed [facility] 5G, S565/1 Discharge Date Discharge Disposition Discharge Destination Attending Provider: Jadyn Richardson DO Allergies: Ceftin [Cefuroxime], Keflex [Cephalexin], Latex Isolation: None Infection: MRSA (05/11/23) Code Status: CPR Ht: 180.3 cm (71 ) Wt: 134 kg (295 lb) Admission Cmt: None 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 Insurance as of 04/04/2025 Primary Coverage Payor Plan Insurance Group Employer/Plan Group [place] [id number] Payor Plan Address Payor Plan Phone Number Payor Plan Fax Number Effective Dates [employer] [address] [address] 08/10/2023 - None Entered [facility] [id number] Subscriber Name Subscriber Date Member ID WON DENNIS 1980 [id number] Emergency Contacts Circular Distributor (Rel.) Home Phone Work Phone Mobile Phone Avril Dennis (Spouse) -- -- [phone] Robert Hackett (Relative) -- -- [phone] [facility] 5G [address] [facility] [id number] Patient: ROOM: [facility] Won Dennis [address] 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 Outpatient intravenous antibiotic therapy: Daptomycin 800 mg IV daily to be supplied by [facility] 2. Home health to perform [...] INFECTIOUS DISEASE Progress Note Won Dennis 1980 [id number] Date of Consult: 04/10/2025 Admission Date: 04/04/2025 [...] which prompted him to seek treatment at [facility]. He is known to Dr. [...] tablet 5 mg, 5 mg, Oral, Q12H, uSshil Dean Jr., MD atorvastatin (LIPITOR) tablet 40 [...] Jr., MD, 20 mg at 04/09/25906 heparin 03391 units/250 mL (100 units/mL) in 0.45 % [...] Units Date/Time FL C Arm During Surgery [[id number]] Resulted: 04/07/252137 Updated: 04/07/252137 Narrative: This procedure was auto-finalized with no dictation required. MRI Tibia Fibula Right With & Without Contrast [[id number]] Collected: 04/07/2538 Updated: 04/07/25 1001 Narrative: MRI [...] Buenrostro 04/07/2025 9:58 AM EDT Workstation ID: [id number] Impression: Recurrent Right BKA stump abscess/cellulitis- this [...] 04/10/251323 Creation Time: 04/10/251323 Signed [facility] Medicine Services PROGRESS NOTE Patient Name: [...] Date/Time Wound Culture - Swab, Leg, Right [[id number]] (Abnormal) (Susceptibility) Collected: 04/07/252106 Lab Status: Final [...] Row Name 04/06/25 1143 Sit-Stand Transfer Sit-Stand [place] (Transfers) modified independence - Comment, (Sit-Stand Transfer) Pt stood from recliner. Not holding onto walker, pt able to pull his pants up while balancing on his one leg. -LM Row Name 04/06/25 1143 Gait/Stairs (Locomotion) [place] Level (Gait) modified independence - Distance in [...] Motion bilateral lower extremity ROM WFL -LM [facility] Name 04/06/25 1145 Strength Comprehensive (MMT) General Manual Muscle Testing (MMT) Assessment no strength deficits identified BLEs -LM [facility] Name 04/06/25 1145 Balance Balance [...] Goals/Plan No documentation. Clinical Impression [facility] 04/06/25 1146 Pain Pretreatment Pain Rating 0/10 - no pain -LM Posttreatment Pain Rating 0/10 - no pain -LM [facility] 04/06/25 1146 Plan of Care Review Plan of Care Reviewed With patient -LM Outcome Evaluation PT evaluation completed. Pt demonstrated independence with all mobility including ambulating 100 feet using rw - no unsteadiness noted. Pt reports he feels at baseline and doesn't think he needs skilled PT while here. Recommend home at d/c. PT signing off. -LM [facility] Name 04/06/25 1146 Therapy Assessment/Plan (PT) Criteria for Skilled Interventions Met (PT) no;no problems identified which require skilled intervention -LM Therapy Frequency (PT) evaluation only -LM Predicted Duration of Therapy Intervention (PT) Eval Only -LM [facility] Name 04/06/25 1146 Vital Signs Pretreatment Heart Rate (beats/min) 86 -LM Posttreatment Heart Rate (beats/min) 96 -LM Pre SpO2 (%) 95 -LM O2 Delivery Pre Treatment room air -LM Post SpO2 (%) 96 -LM O2 Delivery Post Treatment room air -LM Pre Patient Position Sitting -LM Post Patient Position Sitting -LM [facility] Name 04/06/25 1146 Positioning and [...] Nurse Physical Therapy Education Title: PT OT EC TEACHER Therapies (Done) Topic: Physical Therapy (Done) Point: Mobility training (Done) Learning Progress Summary Patient Acceptance, E, VU,DU by at 04/06/2025 1147 Point: Precautions (Done) Learning Progress Summary Patient Acceptance, E, VU,DU by at 04/06/2025 1147 User Cabrera Initials Effective Dates Name Provider Type [facility] 01/24/25 - Susan Cavazos, PT Physical [...] Description Service Date Service Provider Modifiers Qty [id number] PT EVAL LOW COMPLEXITY 3 04/06/2025 Susan [...] mg Daily 04/05/2025 -- Route: Oral heparin 35432 units/250 mL (100 units/mL) in 0.45 % [...] Dean MD April 21 vs April 22 [facility] [address], [address] [facility], [address] Please schedule at [phone] VONDA Garcia 04/11/25 08:32 EDT Cosigned by Sushil Dean Jr., MD at 04/19/2025 10:33 AM EDT Associated attestation - Sushil Dean Jr., MD - 04/19/2025 10:33 AM EDT I have reviewed this documentation and agree. * Rosario Hill APRN - 04/10/2025 1:24 PM EDT Images from the original note were not included. [facility] Medicine Services PROGRESS NOTE Patient [...] Date/Time Wound Culture - Swab, Leg, Right [[id number]] (Abnormal) (Susceptibility) Collected: 04/07/252106 Lab Status: Final [...] mg Daily 04/05/2025 -- Route: Oral heparin 81388 units/250 mL (100 units/mL) in 0.45 % [...] Dean MD April 21 vs April 22 [facility] [address], [address] [facility], [address] Please schedule at [phone] VONDA Garcia 04/10/25 09:01 EDT Cosigned by Sushil Dean Jr., MD at 04/19/2025 10:33 AM EDT Associated attestation - Sushil Dean Jr., MD - 04/19/2025 10:33 AM EDT I have reviewed this documentation and agree. * Carlton Mead MD - 04/10/2025 7:38 AM EDT Images from the original note were not included. INFECTIOUS DISEASE Progress Note Won Dennis 1980 [id number] Date of Consult: 04/10/2025 Admission Date: 04/04/2025 [...] which prompted him to seek treatment at [facility]. He is known to Dr. [...] IRRIGATION; Surgeon: Sushil Dean Jr., MD; Location: [facility] OR; Service: Orthopedics; Laterality: Right; PLACEMENT OF WOUND VAC Right 04/07/2025 Procedure: WOUND VACUUM ASSISTED CLOSURE; Surgeon: Sushil Dean Jr., MD; Location: [facility] OR; Service: Orthopedics; Laterality: Right; WOUND CLOSURE [...] Jr., MD, 20 mg at 04/09/25906 heparin 63500 units/250 mL (100 units/mL) in 0.45 % [...] Units Date/Time FL C Arm During Surgery [[id number]] Resulted: 04/07/252137 Updated: 04/07/252137 Narrative: This procedure was auto-finalized with no dictation required. MRI Tibia Fibula Right With & Without Contrast [[id number]] Collected: 04/07/25937 Updated: 04/07/25 100 Narrative: MRI [...] Buenrostro 04/07/2025 9:58 AM EDT Workstation ID: [id number] Impression: Recurrent Right BKA stump abscess/cellulitis- this [...] EDT * Larisa Hamilton [facility] - 04/10/2025 7:17 AM EDT Pharmacy to [...] from the original note were not included. [facility] Medicine Services PROGRESS NOTE Patient [...] Date/Time Wound Culture - Swab, Leg, Right [[id number]] (Abnormal) Collected: 04/07/252106 Lab Status: Preliminary result [...] 04/09/25 * Larisa Hamilton [facility] - 04/09/2025 11:36 AM EDT Pharmacy to [...] mg Daily 04/05/2025 -- Route: Oral heparin 77568 units/250 mL (100 units/mL) in 0.45 % [...] in 2 weeks for incision check, radiographs [facility] [address], [address] [facility], [address] Please schedule at [phone] VONDA Garcia 04/09/25 09:18 EDT Cosigned by Sushil Dean Jr., MD at 04/19/2025 10:33 AM EDT Associated attestation - Sushil Dean Jr., MD - 04/19/2025 10:33 AM EDT I have reviewed this documentation and agree. * Carlton Mead MD - 04/09/2025 8:25 AM EDT Images from the original note were not included. INFECTIOUS DISEASE Progress Note Won Dennis 1980 [id number] Date of Consult: 04/09/2025 Admission Date: 04/04/2025 [...] which prompted him to seek treatment at [facility]. He is known to Dr. [...] IRRIGATION; Surgeon: Sushil Dean Jr., MD; Location: [facility]; Service: Orthopedics; Laterality: Right; PLACEMENT OF WOUND VAC Right 04/07/2025 Procedure: WOUND VACUUM ASSISTED CLOSURE; Surgeon: Sushil Dean Jr., MD; Location: [facility] OR; Service: Orthopedics; Laterality: Right; History [...] tablet 5 mg, 5 mg, Oral, Q12H, uSshil Dean Jr., MD atorvastatin (LIPITOR) tablet 40 [...] tablet 325 mg, 325 mg, Oral, BID, Susihl Dean Jr., MD, 325 mg at 04/08/252006 furosemide (LASIX) tablet 20 mg, 20 mg, Oral, Daily, Sushil Dean Jr., MD, 20 mg at 04/08/25 0800 heparin 64809 units/250 mL (100 units/mL) in 0.45 % [...] Units Date/Time FL C Arm During Surgery [[id number]] Resulted: 04/07/252137 Updated: 04/07/252137 Narrative: This procedure was auto-finalized with no dictation required. MRI Tibia Fibula Right With & Without Contrast [[id number]] Collected: 04/07/25 0938 Updated: 04/07/25 1001 Narrative: [...] Chitra 04/07/2025 9:58 AM EDT Workstation ID: [id number] Impression: Recurrent Right BKA stump abscess/cellulitis- this [...] mg IV daily to be supplied by [facility] 2. Home health to perform [...] from the original note were not included. [facility] Medicine Services PROGRESS NOTE Patient [...] Buenrostro 04/07/2025 9:58 AM EDT Workstation ID: [id number] I have personally reviewed the therapy plans: [...] 04/08/25 * Hamilton, Larisa, [facility] - 04/08/2025 11:48 AM EDT Pharmacy to [...] mg Daily 04/05/2025 -- Route: Oral heparin 62981 units/250 mL (100 units/mL) in 0.45 % [...] INFECTIOUS DISEASE Progress Note Won Dennis 1980 [id number] Date of Consult: 04/08/2025 Admission Date: 04/04/2025 [...] which prompted him to seek treatment at [facility]. He is known to Dr. [...] IRRIGATION; Surgeon: Sushil Dean Jr., MD; Location: [facility] OR; Service: Orthopedics; Laterality: Right; PLACEMENT OF WOUND VAC Right 04/07/2025 Procedure: WOUND VACUUM ASSISTED CLOSURE; Surgeon: Sushil Dean Jr., MD; Location: [facility] OR; Service: Orthopedics; Laterality: Right; History [...] Oral, Q6H PRN, 500 mg at 04/06/25 4364 OR acetaminophen (TYLENOL) 160 MG/5ML oral solution [...] Jr., MD, 20 mg at 04/07/25950 heparin 63939 units/250 mL (100 units/mL) in 0.45 % [...] Units Date/Time FL C Arm During Surgery [[id number]] Resulted: 04/07/252137 Updated: 04/07/252137 Narrative: This procedure was auto-finalized with no dictation required. MRI Tibia Fibula Right With & Without Contrast [[id number]] Collected: 04/07/25 0938 Updated: 04/07/25 1001 Narrative: [...] Buenrostro 04/07/2025 9:58 AM EDT Workstation ID: [id number] Impression: Right BKA stump cellulitis- s/p BKA with multiple surgical interventions with Known MRSA 05/09/2025. (Treated by ID in [place] Dr. Harris). Dr. Torres treated him with [...] from the original note were not included. [facility] Medicine Services PROGRESS NOTE Patient [...] Buenrostro 04/07/2025 9:58 AM EDT Workstation ID: [id number] I have personally reviewed the therapy plans: [...] 04/07/25 * Larisa Hamilton, [facility] - 04/07/2025 11:56 AM EDT Pharmacy to [...] INFECTIOUS DISEASE Progress Note Won Dennis 1980 [id number] Date of Consult: 04/07/2025 Admission Date: 04/04/2025 [...] which prompted him to seek treatment at [facility]. He is known to Dr. [...] Nightly, Leonora Sehpherd MD, 40 mg at 04/06/252100 sennosides-docusate (PERICOLACE) [...] MD, 20 mg at 04/06/25 0900 heparin 54524 units/250 mL (100 units/mL) in 0.45 % NaCl infusion, 18 Units/kg/hr, Intravenous, Titrated, Cherri Beatty, [facility], Last Rate: 24.1 mL/hr at 04/07/258, 18 [...] With & Without Contrast - In process [[id number]] Resulted: 04/07/25828 Updated: 04/07/25828 This result has not been signed. Information might be incomplete. MRI Tibia Fibula Right With & Without Contrast [[id number]] Collected: 04/04/252256 Updated: 04/04/253 Narrative: MRI TIBIA [...] represent a small area of phlegmonous change (toqulr58 image 10) measuring approximately 1.6 cm which [...] MD 04/04/2025 11:00 PM EDT Workstation ID: [id number] Impression: Right BKA stump cellulitis- s/p BKA with multiple surgical interventions with Known MRSA 05/09/2025. (Treated by ID in [place] Dr. Harris). Dr. Torres treated him with [...] mg Daily 04/05/2025 -- Route: Oral heparin 62866 units/250 mL (100 units/mL) in 0.45 % [...] EDT * Cherri Beatty [facility] - 04/06/2025 1:47 PM EDT Pharmacy to [...] from the original note were not included. [facility] Medicine Services PROGRESS NOTE Patient [...] MD 04/04/2025 11:00 PM EDT Workstation ID: [id number] I have personally reviewed the therapy plans: [...] mg Daily 04/05/2025 -- Route: Oral heparin 57411 units/250 mL (100 units/mL) in 0.45 % [...] INFECTIOUS DISEASE follow up. Won Dennis 1980 [id number] Date of Consult: 04/06/2025 Admission Date: 04/04/2025 [...] which prompted him to seek treatment at [facility]. He is known to Dr. [...] MD, 20 mg at 04/06/25 0900 heparin 82435 units/250 mL (100 units/mL) in 0.45 % NaCl infusion, 18 Units/kg/hr, Intravenous, Titrated, Cherri Beatty [facility], Last Rate: 24.1 mL/hr at 04/06/25 1420, [...] Tibia Fibula Right With & Without Contrast [[id number]] Collected: 04/04/252256 Updated: 04/04/252302 Narrative: MRI TIBIA [...] represent a small area of phlegmonous change (qsxppa80 image 10) measuring approximately 1.6 cm which [...] MD 04/04/2025 11:00 PM EDT Workstation ID: [id number] Impression: Right BKA stump cellulitis- s/p BKA with multiple surgical interventions with Known MRSA 05/09/2025. (Treated by ID in [place] Dr. Harris). Dr. Torres treated him with [...] from the original note were not included. [facility] Medicine Services PROGRESS NOTE Patient [...] MD 04/04/2025 11:00 PM EDT Workstation ID: [id number] I have personally reviewed the therapy plans: [...] from the original note were not included. [facility] Medicine Services HISTORY AND PHYSICAL [...] MD 04/04/2025 11:00 PM EDT Workstation ID: [id number] Assessment & Plan Assessment & Plan Won [...] 4FR PICC placed by Rhoda Bonner RN [facility], tip verified by 3CG see LDA. * Sushil Dean Jr., MD - 04/05/2025 8:07 AM EDTAssociated Order(s): IP CONSULT TO ORTHOPEDIC SURGERY [facility], [facility] [address] [address] Orthopedic Consult Patient: Won Dennis Date of [...] was evaluated in the emergency department in [place], was discharged with instructions for follow-up. [...] 04/03/2025 Morning Lactobacillus-Inulin ([facility]) capsule Take 200 mg by [...] MD 04/04/2025 11:00 PM EDT Workstation ID: [id number] Assessment: Right BKA infection 44-year-old male with [...] DISEASE CONSULT/INITIAL HOSPITAL VISIT Won Dennis 1980 [id number] Date of Consult: 04/05/2025 Admission Date: 04/04/2025 [...] which prompted him to seek treatment at [facility]. He is known to Dr. [...] Leonora Shepherd MD, 40 mg at 04/04/25 7020 sennosides-docusate (PERICOLACE) 8.6-50 MG per tablet 2 [...] MD, 20 mg at 04/05/25 09 heparin 13983 units/250 mL (100 units/mL) in 0.45 % [...] Leonora Shepherd MD, 10 mg at 04/04/25 7432 Pharmacy to Dose Heparin, , Not Applicable, [...] Tibia Fibula Right With & Without Contrast [[id number]] Collected: 04/04/252256 Updated: 04/04/252302 Narrative: MRI TIBIA [...] MD 04/04/2025 11:00 PM EDT Workstation ID: [id number] Impression: Right BKA stump cellulitis- s/p BKA with multiple surgical interventions with Known MRSA 05/09/2025. (Treated by ID in [place] Dr. Harris). Dr. Trores treated him with [...] MD - 04/08/2025 3:51 PM EDT [facility] OPERATIVE REPORT PATIENT NAME: Won Dennis DATE OF : 1980 PREOP DIAGNOSIS: Right Right below-knee amputation infection POSTOP DIAGNOSIS: Same. PROCEDURE: Right Right 32457: Secondary closure below-knee amputation SURGEON: Sushil Dean MD OPERATIVE TEAM: Biologics Specialist: Susi Grullon RN Scrub Person: Mary Paredes Scrub Person Extra: Hortencia Toribio Other: Katt Gotti RN; Charis Neville RN ANESTHETIST: Anesthesiologist: Ulises Hoffman MD CASE AIDE: Stan Casillas CRNA Student Nurse [employer] Consultant: Karol Albert SRNA ANESTHESIA: Choice ESTIMATED [...] CULTURE (Canceled) Sushil Dean Jr., MD 04/08/25 0108 Description: RIGHT LEG DEEP WOUND FOR CULTURE [...] Jr., MD - 04/07/2025 9:03 PM EDT [facility], [place] [address] OPERATIVE REPORT PATIENT NAME: Won Dennis DATE OF : 1980 PREOP DIAGNOSIS: Right Right below knee amputation stump infection POSTOP DIAGNOSIS: Same. PROCEDURE: Right Right 35265: Incision and drainage of surgical site infection 93394: Debridement of skin, subcutaneous tissue, muscle 50160: Wound vacuum-assisted closure SURGEON: Sushil Dean MD OPERATIVE TEAM: Biologics Specialist: Anum Sanchez RN Scrub Person: Hortencia Toribio; Gerald Ivey TUNA PURSE SEINER: Anesthesiologist: Luci Alonso DO ANESTHESIA: General ESTIMATED [...] ago swellling of the area. seen at [facility] yesterday for CT and US, [...] this chart in the absence of a tax form preparer. No orders to display RADIOLOGY: [x] Radiologist's [...] is discharging home with outpatient infusion at [facility]. He has an appointment with [facility] at 8:00 am tomorrow. They will do PICC line dressing changes. DEBRA has spoke with Dena at [facility] today multiple times to get setup [...] to get IV ABX at home with [facility]; however, Medicaid lapsed on 04/08. DEBRA was unaware until this morning that Medicaid has lapsed. Patient explained that he has Medicare A and B. CM spoke with KELLEE and given themhis Medicare number [id number], she sent it to Admission. DEBRA spoke with Kerri, with [facility], and explained that he had Medicare A and B. However, it will not cover home infusion. It will be $64.00 a day out of packet. Patients can go to the Infusion center at [facility], and it will cover the cost as an outpatient. He will need to go there every day for infusion. They will be able to do the patients' PICC line dressing changes and lab work. DEBRA called Dena [facility] Outpatient infusion center they can accept patient and start him. He is known for their facility. The Facility will need to run it through his insurance first. CM faxed the orders over to [facility] at [phone]. CM will follow up with them tomorrow at [facility] to make sure they received [...] with patient at bedside today. Wheelchair from [employer] is at bedside. 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 Patient lives with and his 5 kids in [facility]. 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 He has walker, cane, shower chair, and crutches. He requested a wheelchair for home. CM will order wheelchair [facility]. He is not current with home health services. PCP is Dr. Jordan. Insurance is [employer] [place]. Patient discharge plan is home with priavte transport. CM will follow for any discharge needs. Final Discharge Disposition Code 01 - home or self-care Continued Care and Services - Admitted Since 04/04/2025 No active coordination exists. Demographic Summary Row Name 04/07/25 1143 General Information Arrived From hospital Preferred Language Niuean Functional Status Row Name 04/07/25 1143 Functional [...] CBC Auto Differential (04/11/2025 3:40 AM EDT) [facility] WBC 7.87 3.40 - 10.80 10*3/mm3 04/11/2025 4:02 AM EDT [facility] RBC 4.70 4.14 - 5.80 10*6/mm3 04/11/2025 4:02 AM [facility] Hemoglobin 12.8(L) 13.0 - 17.7 g/dL 04/11/2025 4:02 AM [facility] Hematocrit 40.5 37.5 - 51.0 % 04/11/2025 4:02 AM [facility] MCV 86.2 79.0 - 97.0 fL 04/11/2025 4:[facility] MCH 27.2 26.6 - 33.0 pg 04/11/2025 4:02 AM [facility] MCHC 31.6 31.5 - 35.7 g/dL 04/11/2025 4:02 AM [facility] RDW 12.9 12.3 - 15.4 % 04/11/2025 4:02 AM [facility] RDW-SD 40.5 37.0 - 54.0 fl 04/11/2025 4:02 AM [facility] MPV 9.2 6.0 - 12.0 fL 04/11/2025 4:02 AM [facility] Platelets 267 140 - 450 10*3/mm3 04/11/2025 4:02 AM [facility] Neutrophil % 59.5 42.7 - 76.0 % 04/11/2025 4:02 AM [facility] Lymphocyte % 26.3 19.6 - 45.3 % 04/11/2025 4:02 AM [facility] Monocyte % 9.3 5.0 - 12.0 % 04/11/2025 4:02 AM [facility] Eosinophil % 4.1 0.3 - 6.2 % 04/11/2025 4:02 AM [facility] Basophil % 0.4 0.0 - 1.5 % 04/11/2025 4:02 [facility] Immature Grans % 0.4 0.0 - 0.5 % 04/11/2025 4:02 AM [facility] Neutrophils, Absolute 4.69 1.70 - 7.00 10*3/mm3 04/11/2025 4:02 AM EDT [facility] Lymphocytes, Absolute 2.07 0.70 - 3.10 10*3/mm3 04/11/2025 4:02 AM EDT [facility] Monocytes, Absolute 0.73 0.10 - 0.90 10*3/mm3 04/11/2025 4:02 AM EDT [facility] Eosinophils, Absolute 0.32 0.00 - 0.40 10*3/mm3 04/11/2025 4:02 AM EDT [facility] Basophils, Absolute 0.03 0.00 - 0.20 10*3/mm3 04/11/2025 4:02 AM EDT [facility] Immature Grans, Absolute 0.03 0.00 - 0.05 10*3/mm3 04/11/2025 4:02 AM EDT [facility] nRBC 0.0 0.0 - 0.2 /100 WBC 04/11/2025 4:02 AM EDT [facility] Blood Venipuncture / Unknown 04/11/2025 3:40 AM EDT 04/11/2025 3:59 AM EDT us Sushil Dean Jr., MD LAB BLOOD ORDERABLES Fi nal Result [facility]
[address] [place] [address], * (ABNORMAL) Comprehensive Metabolic Panel (04/11/2025 3:40 AM EDT) [facility] Signature Glucose 108(H) 65 - 99 mg/dL 04/11/2025 4:19 AM EDT [facility] BUN 12.5 6.0 - 20.0 mg/dL 04/11/2025 4:19 AM EDT [facility] Creatinine 0.68(L) 0.76 - 1.27 mg/dL 04/11/2025 4:19 AM [facility] Sodium 140 136 - 145 mmol/L 04/11/2025 4:19 AM [facility] Potassium 3.8 3.5 - 5.2 mmol/L 04/11/2025 4:19 AM [facility] Chloride 105 98 - 107 mmol/L 04/11/2025 4:19 AM [facility] CO2 28.2 22.0 - 29.0 mmol/L 04/11/2025 4:19 AM [facility] Calcium 8.2(L) 8.6 - 10.5 mg/dL 04/11/2025 4:19 AM [facility] Total Protein 6.1 6.0 - 8.5 g/dL 04/11/2025 4:19 AM [facility] Albumin 3.1(L) 3.5 - 5.2 g/dL 04/11/2025 4:19 AM [facility] ALT (SGPT) 52(H) 1 - 41 U/L 04/11/2025 4:19 AM [facility] AST (SGOT) 40 1 - 40 U/L 04/11/2025 4:19 AM [facility] Alkaline Phosphatase 99 39 - 117 U/L 04/11/2025 4:19 AM [facility] Total Bilirubin 0.2 0.0 - 1.2 mg/dL 04/11/2025 4:19 AM [facility] Globulin 3.0 gm/dL 04/11/2025 4:19 AM [facility] Comment:Calculated Result A/G Ratio 1.0 g/dL 04/11/2025 4:19 AM [facility] BUN/Creatinine Ratio 18.4 7.0 - 25.0 04/11/2025 4:19 AM [facility] Anion Gap 6.8 5.0 - 15.0 mmol/L 04/11/2025 4:19 AM [facility] eGFR 117.5 >60.0 mL/min/1.7 3 04/11/2025 4:19 AM EDT [facility] Blood Venipuncture / Unknown 04/11/2025 3:40 AM EDT 04/11/2025 3:56 AM EDT [facility] - 04/11/2025 4:19 AM EDT [...] include race as a factor [employer] LAB BLOOD ORDERABLES Final Result [facility]
[address] [place] [address], * (ABNORMAL) CBC Auto Differential (04/10/2025 3:46 AM EDT) WBC 9.60 3.40 - 10.80 10*3/mm3 04/10/2025 3:56 AM EDT [facility] RBC 4.67 4.14 - 5.80 10*6/mm3 04/10/2025 3:56 AM EDT [facility] Hemoglobin 12.9(L) 13.0 - 17.7 g/dL 04/10/2025 3:56 AM EDT [facility] Hematocrit 40.1 37.5 - 51.0 % 04/10/2025 3:56 AM EDT [facility] MCV 85.9 79.0 - 97.0 fL 04/10/2025 3:56 AM EDT [facility] MCH 27.6 26.6 - 33.0 pg 04/10/2025 3:56 AM EDT [facility] MCHC 32.2 31.5 - 35.7 g/dL 04/10/2025 3:56 [facility] RDW 12.9 12.3 - 15.4 % 04/10/2025 3:56 AM [facility] RDW-SD 40.5 37.0 - 54.0 fl 04/10/2025 3:56 AM [facility] MPV 9.5 6.0 - 12.0 fL 04/10/2025 3:56 AM EDT [facility] Platelets 227 140 - 450 10*3/mm3 04/10/2025 3:56 AM [facility] Neutrophil % 59.1 42.7 - 76.0 % 04/10/2025 3:56 AM [facility] Lymphocyte % 29.0 19.6 - 45.3 % 04/10/2025 3:56 AM [facility] Monocyte % 8.1 5.0 - 12.0 % 04/10/2025 3:56 AM [facility] Eosinophil % 3.2 0.3 - 6.2 % 04/10/2025 3:56 AM [facility] Basophil % 0.4 0.0 - 1.5 % 04/10/2025 3:56 AM [facility] Immature Grans % 0.2 0.0 - 0.5 % 04/10/2025 3:56 AM [facility] Neutrophils, Absolute 5.67 1.70 - 7.00 10*3/mm3 04/10/2025 3:56 AM [facility] Lymphocytes, Absolute 2.78 0.70 - 3.10 10*3/mm3 04/10/2025 3:56 AM [facility] Monocytes, Absolute 0.78 0.10 - 0.90 10*3/mm3 04/10/2025 3:56 AM [facility] Eosinophils, Absolute 0.31 0.00 - 0.40 10*3/mm3 04/10/2025 3:56 AM [facility] Basophils, Absolute 0.04 0.00 - 0.20 10*3/mm3 04/10/2025 3:56 AM EDT [facility] Immature Grans, Absolute 0.02 0.00 - 0.05 10*3/mm3 04/10/2025 3:56 AM EDT [facility] nRBC 0.0 0.0 - 0.2 /100 WBC 04/10/2025 3:56 AM EDT [facility] Blood Venipuncture / Unknown 04/10/2025 3:46 AM EDT 04/10/2025 3:53 AM EDT us Jason Álvarez DO LAB BLOOD ORDERABLES Final Resul t [facility]
[address] [place] [address], * (ABNORMAL) Basic Metabolic Panel (04/10/2025 3:46 AM EDT) Glucose 125(H) 65 - 99 mg/dL 04/10/2025 4:20 AM EDT [facility] BUN 15.9 6.0 - 20.0 mg/dL 04/10/2025 4:20 AM EDT [facility] Creatinine 0.77 0.76 - 1.27 mg/dL 04/10/2025 4:20 AM EDT [facility] Sodium 137 136 - 145 mmol/L 04/10/2025 4:20 AM EDT [facility] Potassium 3.9 3.5 - 5.2 mmol/L 04/10/2025 4:20 AM EDT [facility] Chloride 102 98 - 107 mmol/L 04/10/2025 4:20 AM EDT [facility] CO2 26.9 22.0 - 29.0 mmol/L 04/10/2025 4:20 AM EDT [facility] Calcium 7.9(L) 8.6 - 10.5 mg/dL 04/10/2025 4:20 AM EDT [facility] BUN/Creatinine Ratio 20.6 7.0 - 25.0 04/10/2025 4:20 AM EDT [facility] Anion Gap 8.1 5.0 - 15.0 mmol/L 04/10/2025 4:20 AM EDT [facility] eGFR 113.2 >60.0 mL/min/1.7 3 04/10/2025 4:20 AM EDT [facility] Blood Venipuncture / Unknown 04/10/2025 3:46 AM EDT 04/10/2025 3:52 AM EDT Narrative [facility] - 04/10/2025 4:20 AM [...] DO LAB BLOOD ORDERABLES Final Resul t [facility]
[address] [place] [address], * Heparin Anti-Xa (04/10/2025 3:46 AM EDT) Heparin Anti-Xa (UFH) 0.35 0.30 - 0.70 IU/ml 04/10/2025 4:23 AM EDT [facility] Blood Venipuncture / Unknown 04/10/2025 3:46 AM EDT 04/10/2025 3:53 AM EDT Larisa Hamilton [facility] LAB BLOOD ORDERABLES Final R esult [facility]
[address] [place] [address], * Heparin Anti-Xa (04/09/2025 10:05 AM EDT) Pathologist [facility] Heparin Anti-Xa (UFH) 0.36 0.30 - 0.70 IU/ml 04/09/2025 11:12 AM EDT [facility] Blood Venipuncture / Unknown 04/09/2025 10:05 AM EDT 04/09/2025 10:47 AM EDT Larisa Hamilton [facility] LAB BLOOD ORDERABLES Final R esult [facility]
[address] [place] [address], * (ABNORMAL) CBC Auto Differential (04/09/2025 4:18 AM EDT) Pathologist [facility] WBC 11.00(H) 3.40 - 10.80 10*3/mm3 04/09/2025 4:50 AM EDT [facility] RBC 4.70 4.14 - 5.80 10*6/mm3 04/09/2025 4:50 AM EDT [facility] Hemoglobin 13.0 13.0 - 17.7 g/dL 04/09/2025 4:50 AM EDT [facility] Hematocrit 40.4 37.5 - 51.0 % 04/09/2025 4:50 AM EDT [facility] MCV 86.0 79.0 - 97.0 fL 04/09/2025 4:50 AM EDT [facility] MCH 27.7 26.6 - 33.0 pg 04/09/2025 4:50 AM EDT [facility] MCHC 32.2 31.5 - 35.7 g/dL 04/09/2025 4:50 AM EDT [facility] RDW 12.8 12.3 - 15.4 % 04/09/2025 4:50 AM [facility] RDW-SD 39.9 37.0 - 54.0 fl 04/09/2025 4:50 AM [facility] MPV 10.0 6.0 - 12.0 fL 04/09/2025 4:50 AM [facility] Platelets 211 140 - 450 10*3/mm3 04/09/2025 4:50 [facility] Neutrophil % 74.8 42.7 - 76.0 % 04/09/2025 4:50 AM [facility] Lymphocyte % 15.4(L) 19.6 - 45.3 % 04/09/2025 4:50 AM [facility] Monocyte % 8.5 5.0 - 12.0 % 04/09/2025 4:50 AM [facility] Eosinophil % 0.6 0.3 - 6.2 % 04/09/2025 4:50 AM [facility] Basophil % 0.4 0.0 - 1.5 % 04/09/2025 4:50 AM [facility] Immature Grans % 0.3 0.0 - 0.5 % 04/09/2025 4:50 AM [facility] Neutrophils, Absolute 8.23(H) 1.70 - 7.00 10*3/mm3 04/09/2025 4:50 AM [facility] Lymphocytes, Absolute 1.69 0.70 - 3.10 10*3/mm3 04/09/2025 4:50 AM [facility] Monocytes, Absolute 0.94(H) 0.10 - 0.90 10*3/mm3 04/09/2025 4:50 AM [facility] Eosinophils, Absolute 0.07 0.00 - 0.40 10*3/mm3 04/09/2025 4:50 AM [facility] Basophils, Absolute 0.04 0.00 - 0.20 10*3/mm3 04/09/2025 4:50 AM [facility] Immature Grans, Absolute 0.03 0.00 - 0.05 10*3/mm3 04/09/2025 4:50 AM EDT [facility] nRBC 0.0 0.0 - 0.2 /100 WBC 04/09/2025 4:50 AM EDT [facility] Blood Venipuncture / Unknown 04/09/2025 4:18 AM EDT 04/09/2025 4:31 AM EDT Sushil Dean Jr., MD LAB BLOOD ORDERABLES Fi nal Result [facility]
[address] [place] [address], * Heparin Anti-Xa (04/09/2025 4:18 AM EDT) Heparin Anti-Xa (UFH) 0.41 0.30 - 0.70 IU/ml 04/09/2025 4:53 AM EDT [facility] Blood Venipuncture / Unknown 04/09/2025 4:18 AM EDT 04/09/2025 4:31 AM EDT Una LundbergD LAB BLOOD ORDERABLES Final R esult [facility]
[address] [place] [address], * (ABNORMAL) Basic Metabolic Panel (04/09/2025 4:18 AM EDT) Glucose 147(H) 65 - 99 mg/dL 04/09/2025 5:33 AM EDT [facility] BUN 23.0(H) 6.0 - 20.0 mg/dL 04/09/2025 5:33 AM EDT [facility] Creatinine 1.15 0.76 - 1.27 mg/dL 04/09/2025 5:33 AM EDT [facility] Sodium 135(L) 136 - 145 mmol/L 04/09/2025 5:33 AM EDT [facility] Potassium 4.2 3.5 - 5.2 mmol/L 04/09/2025 5:33 AM EDT [facility] Chloride 100 98 - 107 mmol/L 04/09/2025 5:33 AM EDT [facility] CO2 26.0 22.0 - 29.0 mmol/L 04/09/2025 5:33 AM EDT [facility] Calcium 8.2(L) 8.6 - 10.5 mg/dL 04/09/2025 5:33 AM EDT [facility] BUN/Creatinine Ratio 20.0 7.0 - 25.0 04/09/2025 5:33 AM EDT [facility] Anion Gap 9.0 5.0 - 15.0 mmol/L 04/09/2025 5:33 AM EDT [facility] eGFR 80.5 >60.0 mL/min/1.7 3 04/09/2025 5:33 AM EDT [facility] Blood Venipuncture / Unknown 04/09/2025 4:18 AM EDT 04/09/2025 4:29 AM EDT [facility] - 04/09/2025 5:33 AM EDT [...] MD LAB BLOOD ORDERABLES Fi nal Result [facility]
[address] [place] [address], * Wound Culture - Swab, Leg, Right (04/08/2025 3:40 PM EDT) Wound Culture No growth at 3 days ALIZA 04/11/2025 10:40 AM EDT [facility] Gram Stain Few (2+) WBCs seen 04/11/2025 10:40 AM EDT [facility] Gram Stain No organisms seen 04/11/2025 10:40 AM EDT [facility] Swab Structure of right lower limb / Unknown 04/08/2025 3:40 PM EDT 04/08/2025 8:05 PM EDT Sushil Dean Jr., MD MICROBIOLOGY - GENERAL ORDERABLES Final Result Performing Organization Address City/[facility]/ZIP Co de Phone Number [facility]
[address] [place] [address], [facility]
[address] [place] [address], * Anaerobic Culture - Swab, Leg, Right (04/08/2025 3:40 PM EDT) Pathologist [facility] Anaerobic Culture No anaerobes isolated at 5 days ALIZA 04/13/2025 7:24 AM EDT [facility] Swab Structure of right lower limb / Unknown 04/08/2025 3:40 PM EDT 04/08/2025 8:05 PM EDT Sushil Dean Jr., MD MICROBIOLOGY - GENERAL ORDERABLES Final Result [facility]
[address] [place] [address], * Scan Slide (04/08/2025 8:41 AM EDT) RBC Morphology Normal Normal 04/08/2025 11:02 AM EDT [facility] WBC Morphology Normal Normal 04/08/2025 11:02 AM EDT [facility] Platelet Estimate Adequate Normal 04/08/2025 11:02 AM EDT [facility] Clumped Platelets Present None Seen 04/08/2025 11:02 AM EDT [facility] Blood Venipuncture / Unknown 04/08/2025 8:41 AM EDT 04/08/2025 9:10 AM EDT Una Minda PharmD LAB BLOOD ORDERABLES Final R esult [facility]
[address] [place] [address], * (ABNORMAL) CBC Auto Differential (04/08/2025 8:41 AM EDT) WBC 10.07 3.40 - 10.80 10*3/mm3 04/08/2025 11:02 AM EDT [facility] RBC 5.01 4.14 - 5.80 10*6/mm3 04/08/2025 11:02 AM EDT [facility] Hemoglobin 14.0 13.0 - 17.7 g/dL 04/08/2025 11:02 AM EDT [facility] Hematocrit 42.7 37.5 - 51.0 % 04/08/2025 11:02 AM EDT [facility] MCV 85.2 79.0 - 97.0 fL 04/08/2025 11:02 AM EDT [facility] MCH 27.9 26.6 - 33.0 pg 04/08/2025 11:02 AM EDT [facility] MCHC 32.8 31.5 - 35.7 g/dL 04/08/2025 11:02 AM EDT [facility] RDW 12.6 12.3 - 15.4 % 04/08/2025 11:02 AM EDT [facility] RDW-SD 38.9 37.0 - 54.0 fl 04/08/2025 11:02 AM [facility] MPV 11.0 6.0 - 12.0 fL 04/08/2025 11:02 AM [facility] Platelets 118(L) 140 - 450 10*3/mm3 04/08/2025 11:02 AM [facility] Neutrophil % 85.1(H) 42.7 - 76.0 % 04/08/2025 11:02 AM [facility] Lymphocyte % 9.3(L) 19.6 - 45.3 % 04/08/2025 11:02 AM [facility] Monocyte % 4.6(L) 5.0 - 12.0 % 04/08/2025 11:02 AM [facility] Eosinophil % 0.3 0.3 - 6.2 % 04/08/2025 11:02 AM [facility] Basophil % 0.2 0.0 - 1.5 % 04/08/2025 11:02 AM [facility] Immature Grans % 0.5 0.0 - 0.5 % 04/08/2025 11:02 AM [facility] Neutrophils, Absolute 8.57(H) 1.70 - 7.00 10*3/mm3 04/08/2025 11:02 AM [facility] Lymphocytes, Absolute 0.94 0.70 - 3.10 10*3/mm3 04/08/2025 11:02 AM [facility] Monocytes, Absolute 0.46 0.10 - 0.90 10*3/mm3 04/08/2025 11:02 AM [facility] Eosinophils, Absolute 0.03 0.00 - 0.40 10*3/mm3 04/08/2025 11:02 AM [facility] Basophils, Absolute 0.02 0.00 - 0.20 10*3/mm3 04/08/2025 11:02 AM [facility] Immature Grans, Absolute 0.05 0.00 - 0.05 10*3/mm3 04/08/2025 11:02 AM EDT [facility] nRBC 0.0 0.0 - 0.2 /100 WBC 04/08/2025 11:02 AM EDT [facility] Blood Venipuncture / Unknown 04/08/2025 8:41 AM EDT 04/08/2025 9:10 AM EDT Una Perla PharmD LAB BLOOD ORDERABLES Final R esult [facility]
[address] [place] [address], * (ABNORMAL) Basic Metabolic Panel (04/08/2025 8:41 AM EDT) Glucose 125(H) 65 - 99 mg/dL 04/08/2025 9:51 AM EDT [facility] BUN 13.2 6.0 - 20.0 mg/dL 04/08/2025 9:51 AM EDT [facility] Creatinine 0.69(L) 0.76 - 1.27 mg/dL 04/08/2025 9:51 AM EDT [facility] Sodium 136 136 - 145 mmol/L 04/08/2025 9:51 AM EDT [facility] Potassium 4.6 3.5 - 5.2 mmol/L 04/08/2025 9:51 AM EDT [facility] Chloride 102 98 - 107 mmol/L 04/08/2025 9:51 AM EDT [facility] CO2 23.5 22.0 - 29.0 mmol/L 04/08/2025 9:51 AM EDT [facility] Calcium 8.4(L) 8.6 - 10.5 mg/dL 04/08/2025 9:51 AM EDT [facility] BUN/Creatinine Ratio 19.1 7.0 - 25.0 04/08/2025 9:51 AM EDT [facility] Anion Gap 10.5 5.0 - 15.0 mmol/L 04/08/2025 9:51 AM EDT [facility] eGFR 117.0 >60.0 mL/min/1.7 3 04/08/2025 9:51 AM EDT [facility] Blood Venipuncture / Unknown 04/08/2025 8:41 AM EDT 04/08/2025 9:09 AM EDT Narrative [facility] - 04/08/2025 9:51 AM [...] ORDERABLES Fi nal Result Performing Organization Address City/[facility]/ZIP Co de Phone Number [facility]
[address] [place] [address], * Heparin Anti-Xa (04/08/2025 8:41 AM EDT) Heparin Anti-Xa (UFH) 0.33 0.30 - 0.70 IU/ml 04/08/2025 9:40 AM EDT [facility] Blood Venipuncture / Unknown 04/08/2025 8:41 AM EDT 04/08/2025 9:10 AM EDT us Sushil Dean Jr., MD LAB BLOOD ORDERABLES Fi nal Result [facility]
[address] [place] [address], * FL C Arm During Surgery (04/07/2025 9:32 PM EDT) Narrative SYSTEMGENERATED, DOCUMENTATION - 04/07/2025 9:38 PM EDT This procedure was auto-finalized with no dictation required. us Sushil Dean Jr., MD IMG FLUOROSCOPY ORDERAB LES Final Result * Wound Culture - Swab, Leg, Right (04/07/2025 9:14 PM EDT) Wound Culture No growth at 3 days ALZIA 04/11/2025 10:40 AM EDT [facility] Gram Stain Occasional WBCs seen 04/11/2025 10:40 AM EDT [facility] Gram Stain No organisms seen 04/11/2025 10:40 AM EDT [facility] Swab Structure of right lower limb / Unknown Collection / Unknown 04/07/2025 9:14 PM EDT 04/08/2025 4:36 AM EDT us Sushil Dean Jr., MD MICROBIOLOGY - GENERAL ORDERABLES Final Result Performing Organization Address City/[facility]/ZIP Co de Phone Number [facility]
[address] [place] [address], [facility]
[address] [place] [address], * Anaerobic Culture - Swab, Leg, Right (04/07/2025 9:14 PM EDT) Anaerobic Culture No anaerobes isolated at 5 days ALIZA 04/13/2025 7:21 AM EDT [facility] Swab Structure of right lower limb / Unknown Collection / Unknown 04/07/2025 9:14 PM EDT 04/08/2025 4:36 AM EDT us Sushil Dean Jr., MD MICROBIOLOGY - GENERAL ORDERABLES Final Result [facility]
[address] [place] [address], * Anaerobic Culture - Tissue, Leg (04/07/2025 9:13 PM EDT) Pathologist [facility] Anaerobic Culture No anaerobes isolated at 5 days ALIZA 04/13/2025 7:21 AM EDT [facility] Tissue Lower limb structure / Unknown Collection / Unknown 04/07/2025 9:13 PM EDT 04/08/2025 4:54 AM EDT Jason Álvarez DO MICROBIOLOGY - GENERAL ORDERABLE S Final Result [facility]
[address] [place] [address], * Tissue / Bone Culture - Tissue, Leg, Right (04/07/2025 9:13 PM EDT) [facility] Tissue Culture No growth at 3 days ALIZA 04/11/2025 10:36 AM EDT [facility] Gram Stain Rare (1+) WBCs seen 04/11/2025 10:36 AM EDT [facility] Gram Stain No organisms seen 04/11/2025 10:36 AM EDT [facility] Tissue Structure of right lower limb / Unknown 04/07/2025 9:13 PM EDT 04/08/2025 4:54 AM EDT Sushil Dean Jr., MD MICROBIOLOGY - GENERAL ORDERABLES Final Result [facility]
[address] [place] [address], [facility]
[address] [place] [address], * (ABNORMAL) Wound Culture - Swab, Leg, Right (04/07/2025 9:07 PM EDT) Pathologist [facility] Wound Culture Light growth (2+) Staphylococcus aureus, MRSA(A) ALIZA 04/10/2025 10:38 AM EDT [facility] Comment: Methicillin resistant Staphylococcus aureus, Patient may be an isolation risk. Gram Stain Few (2+) WBCs seen 04/10/2025 10:38 AM EDT [facility] Gram Stain No organisms seen 10:38 AM EDT [facility] Swab [...] GENERAL ORDERABLES Final Result [facility]
[address] [place] [address], [place] [phone] [facility]
[address] [place] [address], [place] [phone] * Anaerobic Culture - Swab, Leg, Right (04/07/2025 9:07 PM EDT) Anaerobic Culture No anaerobes isolated at 5 days ALIZA 04/13/2025 7:21 AM EDT [facility] Swab Structure of right lower limb / Unknown Collection / Unknown 04/07/2025 9:07 PM EDT 04/08/2025 4:36 AM EDT us Sushil Dean Jr., MD MICROBIOLOGY - GENERAL ORDERABLES Final Result [facility]
[address] [place] [address], * Heparin Anti-Xa (04/07/2025 9:10 AM EDT) [facility] Heparin Anti-Xa ([facility]) 0.30 0.30 - 0.70 IU/ml 04/07/2025 10:12 AM EDT [facility] Blood Venipuncture / Unknown 04/07/2025 9:10 AM EDT 04/07/2025 9:38 AM EDT Una Perla PharmD LAB BLOOD ORDERABLES Final R esult [facility]
[address] [place] [address], * (ABNORMAL) CBC Auto Differential (04/07/2025 9:10 AM EDT) [facility] WBC 8.63 3.40 - 10.80 10*3/mm3 04/07/2025 9:50 AM EDT [facility] RBC 5.23 4.14 - 5.80 10*6/mm3 04/07/2025 9:50 AM EDT [facility] Hemoglobin 14.7 13.0 - 17.7 g/dL 04/07/2025 9:50 AM EDT [facility] Hematocrit 44.8 37.5 - 51.0 % 04/07/2025 9:50 AM EDT [facility] MCV 85.7 79.0 - 97.0 fL 04/07/2025 9:50 AM EDT [facility] MCH 28.1 26.6 - 33.0 pg 04/07/2025 9:50 AM EDT [facility] MCHC 32.8 31.5 - 35.7 g/dL 04/07/2025 9:50 AM EDT [facility] RDW 12.8 12.3 - 15.4 % 04/07/2025 9:50 AM [facility] RDW-SD 39.9 37.0 - 54.0 fl 04/07/2025 9:50 AM [facility] MPV 10.8 6.0 - 12.0 fL 04/07/2025 9:50 AM [facility] Platelets 149 140 - 450 10*3/mm3 04/07/2025 9:50 AM [facility] Neutrophil % 66.7 42.7 - 76.0 % 04/07/2025 9:50 AM [facility] Lymphocyte % 20.5 19.6 - 45.3 % 04/07/2025 9:50 AM [facility] Monocyte % 9.8 5.0 - 12.0 % 04/07/2025 9:50 AM [facility] Eosinophil % 2.1 0.3 - 6.2 % 04/07/2025 9:50 AM [facility] Basophil % 0.3 0.0 - 1.5 % 04/07/2025 9:50 AM [facility] Immature Grans % 0.6(H) 0.0 - 0.5 % 04/07/2025 9:50 AM [facility] Neutrophils, Absolute 5.75 1.70 - 7.00 10*3/mm3 04/07/2025 9:50 AM [facility] Lymphocytes, Absolute 1.77 0.70 - 3.10 10*3/mm3 04/07/2025 9:50 AM [facility] Monocytes, Absolute 0.85 0.10 - 0.90 10*3/mm3 04/07/2025 9:50 AM [facility] Eosinophils, Absolute 0.18 0.00 - 0.40 10*3/mm3 04/07/2025 9:50 AM [facility] Basophils, Absolute 0.03 0.00 - 0.20 10*3/mm3 04/07/2025 9:50 AM [facility] Immature Grans, Absolute 0.05 0.00 - 0.05 10*3/mm3 04/07/2025 9:50 AM EDT [facility] nRBC 0.0 0.0 - 0.2 /100 WBC 04/07/2025 9:50 AM EDT [facility] Blood Venipuncture / Unknown 04/07/2025 9:10 AM EDT 04/07/2025 9:38 AM EDT Jasonalfonso Álvarez LAB BLOOD ORDERABLES Final Resul t [facility]
[address] [place] [address], * (ABNORMAL) Basic Metabolic Panel (04/07/2025 9:10 AM EDT) Glucose 112(H) 65 - 99 mg/dL 04/07/2025 10:19 AM EDT [facility] BUN 13.1 6.0 - 20.0 mg/dL 04/07/2025 10:19 AM EDT [facility] Creatinine 0.77 0.76 - 1.27 mg/dL 04/07/2025 10:19 AM EDT [facility] Sodium 139 136 - 145 mmol/L 04/07/2025 10:19 AM EDT [facility] Potassium 4.2 3.5 - 5.2 mmol/L 04/07/2025 10:19 AM EDT [facility] Comment:Specimen hemolyzed. Result may be falsely elevated. Chloride 105 98 - 107 mmol/L 04/07/2025 10:19 AM EDT [facility] CO2 24.8 22.0 - 29.0 mmol/L 04/07/2025 10:19 AM EDT [facility] Calcium 8.6 8.6 - 10.5 mg/dL 04/07/2025 10:19 AM EDT [facility] BUN/Creatinine Ratio 17.0 7.0 - 25.0 04/07/2025 10:19 AM EDT [facility] Anion Gap 9.2 5.0 - 15.0 mmol/L 04/07/2025 10:19 AM EDT [facility] eGFR 113.2 >60.0 mL/min/1.7 3 04/07/2025 10:19 AM EDT [facility] Blood Venipuncture / Unknown 04/07/2025 9:10 AM EDT 04/07/2025 9:38 AM EDT Narrative [facility] - 04/07/2025 10:19 AM [...] Álvarez LAB BLOOD ORDERABLES Final Resul t [facility]
[address] [place] [address], * MRI Tibia Fibula Right With & [...] [place] 04/07/2025 9:58 AM EDT Workstation ID: [id number] Narrative 04/07/2025 9:58 AM EDT MRI TIBIA [...] [place] 04/07/2025 9:58 AM EDT Workstation ID: [id number] Sushil Dean Jr., MD IM MRI ORDERABLES Mary Beth l Result * Heparin Anti-Xa (04/07/2025 1:42 AM EDT) [facility] Heparin Anti-Xa (UFH) 0.38 0.30 - 0.70 IU/ml 04/07/2025 2:14 AM EDT [facility] Blood Venipuncture / Unknown 04/07/2025 1:42 AM EDT 04/07/2025 1:54 AM EDT Chelsie Turpin [facility] LAB BLOOD ORDERABLES Final R esult [facility]
[address] [place] [address], * Heparin Anti-Xa (04/06/2025 7:16 PM EDT) [facility] Heparin Anti-Xa (UFH) 0.33 0.30 - 0.70 IU/ml 04/06/2025 7:50 PM EDT [facility] Blood Venipuncture / Unknown 04/06/2025 7:16 PM EDT 04/06/2025 7:35 PM EDT Cherri Beatty RP LAB BLOOD ORDERABLES Final Res ult Performing Organization Address City/[facility]/ZIP Co de Phone Number [facility]
[address] [place] [address], * Potassium (04/06/2025 7:16 PM EDT) Potassium 4.0 3.5 - 5.2 mmol/L 04/06/2025 7:53 PM EDT [facility] Blood Venipuncture / Unknown 04/06/2025 7:16 PM EDT 04/06/2025 7:35 PM EDT Jason Álvarez DO LAB BLOOD ORDERABLES Final Resul t Performing Organization Address [facility] de Phone Number [facility]
[address] [place] [address], * (ABNORMAL) Heparin Anti-Xa (04/06/2025 12:36 PM EDT) Heparin Anti-Xa (UFH) 0.24(L) 0.30 - 0.70 IU/ml 04/06/2025 1:23 PM EDT [facility] Blood Venipuncture / Unknown 04/06/2025 12:36 PM EDT 04/06/2025 1:07 PM EDT Una LundbergD LAB BLOOD ORDERABLES Final R esult Performing Organization Address [facility] Co de Phone Number [facility]
[address] [place] [address], * (ABNORMAL) Heparin Anti-Xa (04/06/2025 3:42 AM EDT) Heparin Anti-Xa (UFH) 0.25(L) 0.30 - 0.70 IU/ml 04/06/2025 5:30 AM EDT [facility] Blood Venipuncture / Unknown 04/06/2025 3:42 AM EDT 04/06/2025 4:59 AM EDT Chelsie Turpin [facility] LAB BLOOD ORDERABLES Final R esult [facility]
[address] [place] [address], * (ABNORMAL) Basic Metabolic Panel (04/06/2025 3:42 AM EDT) Pathologist [facility] Glucose 94 65 - 99 mg/dL 04/06/2025 5:59 AM EDT [facility] BUN 12.8 6.0 - 20.0 mg/dL 04/06/2025 5:59 AM EDT [facility] Creatinine 0.80 0.76 - 1.27 mg/dL 04/06/2025 5:59 AM EDT [facility] Sodium 138 136 - 145 mmol/L 04/06/2025 5:59 AM EDT [facility] Potassium 3.6 3.5 - 5.2 mmol/L 04/06/2025 5:59 AM EDT [facility] Chloride 103 98 - 107 mmol/L 04/06/2025 5:59 AM EDT [facility] CO2 24.2 22.0 - 29.0 mmol/L 04/06/2025 5:59 AM EDT [facility] Calcium 8.0(L) 8.6 - 10.5 mg/dL 04/06/2025 5:59 AM EDT [facility] BUN/Creatinine Ratio 16.0 7.0 - 25.0 04/06/2025 5:59 AM EDT [facility] Anion Gap 10.8 5.0 - 15.0 mmol/L 04/06/2025 5:59 AM EDT [facility] eGFR 111.9 >60.0 mL/min/1.7 3 04/06/2025 5:59 AM EDT [facility] Blood Venipuncture / Unknown 04/06/2025 3:42 AM EDT 04/06/2025 5:20 AM EDT [facility] - 04/06/2025 5:59 AM EDT [...] DO LAB BLOOD ORDERABLES Final Resul t [facility]
[address] [place] [address], * (ABNORMAL) CBC Auto Differential (04/06/2025 3:41 AM EDT) WBC 10.86(H) 3.40 - 10.80 10*3/mm3 04/06/2025 5:04 AM EDT [facility] RBC 5.08 4.14 - 5.80 10*6/mm3 04/06/2025 5:04 AM EDT [facility] Hemoglobin 13.9 13.0 - 17.7 g/dL 04/06/2025 5:04 AM EDT [facility] Hematocrit 43.7 37.5 - 51.0 % 04/06/2025 5:04 AM EDT [facility] MCV 86.0 79.0 - 97.0 fL 04/06/2025 5:04 AM [facility] MCH 27.4 26.6 - 33.0 pg 04/06/2025 5:04 AM [facility] MCHC 31.8 31.5 - 35.7 g/dL 04/06/2025 5:04 AM [facility] RDW 12.8 12.3 - 15.4 % 04/06/2025 5:04 AM [facility] RDW-SD 40.0 37.0 - 54.0 fl 04/06/2025 5:04 AM [facility] MPV 11.7 6.0 - 12.0 fL 04/06/2025 5:04 AM [facility] Platelets 115(L) 140 - 450 10*3/mm3 04/06/2025 5:04 AM [facility] Neutrophil % 65.3 42.7 - 76.0 % 04/06/2025 5:04 AM [facility] Lymphocyte % 20.5 19.6 - 45.3 % 04/06/2025 5:04 AM [facility] Monocyte % 11.8 5.0 - 12.0 % 04/06/2025 5:04 AM [facility] Eosinophil % 1.8 0.3 - 6.2 % 04/06/2025 5:04 AM [facility] Basophil % 0.3 0.0 - 1.5 % 04/06/2025 5:04 AM [facility] Immature Grans % 0.3 0.0 - 0.5 % 04/06/2025 5:04 AM [facility] Neutrophils, Absolute 7.09(H) 1.70 - 7.00 10*3/mm3 04/06/2025 5:04 AM [facility] Lymphocytes, Absolute 2.23 0.70 - 3.10 10*3/mm3 04/06/2025 5:04 AM [facility] Monocytes, Absolute 1.28(H) 0.10 - 0.90 10*3/mm3 04/06/2025 5:04 AM EDT [facility] Eosinophils, Absolute 0.20 0.00 - 0.40 10*3/mm3 04/06/2025 5:04 AM EDT [facility] Basophils, Absolute 0.03 0.00 - 0.20 10*3/mm3 04/06/2025 5:04 AM EDT [facility] Immature Grans, Absolute 0.03 0.00 - 0.05 10*3/mm3 04/06/2025 5:04 AM EDT [facility] nRBC 0.0 0.0 - 0.2 /100 WBC 04/06/2025 5:04 AM EDT [facility] Blood Venipuncture / Unknown 04/06/2025 3:41 AM EDT 04/06/2025 4:58 AM EDT Jason Álvarez DO LAB BLOOD ORDERABLES Final Resul t Performing Organization Address City/[facility]/ZIP Co de Phone Number [facility]
[address] [place] [address], [place] [phone] * Heparin Anti-Xa (04/05/2025 8:43 PM EDT) [facility] Heparin Anti-Xa (UFH) 0.38 0.30 - 0.70 IU/ml 04/05/2025 9:09 PM EDT [facility] Blood Venipuncture / Unknown 04/05/2025 8:43 PM EDT 04/05/2025 8:55 PM EDT us Cherri Beatty [facility] LAB BLOOD ORDERABLES Final Res ult Performing Organization Address City/[facility]/ZIP Co de Phone Number [facility]
[address] [place] [address], [place] [phone] * CK (04/05/2025 12:15 PM EDT) Pathologist [facility] Creatine Kinase 140 20 - 200 U/L 04/05/2025 1:31 PM EDT [facility] Blood Venipuncture / Unknown 04/05/2025 12:15 PM EDT 04/05/2025 1:03 PM EDT Carlton Mead MD LAB BLOOD ORDERABLES Final R esult Performing Organization Address City/[facility]/ZIP Co de Phone Number [facility]
[address] [place] [address], * (ABNORMAL) Heparin Anti-Xa (04/05/2025 12:15 PM EDT) Heparin Anti-Xa (UFH) 0.17(L) 0.30 - 0.70 IU/ml 04/05/2025 1:21 PM EDT [facility] Blood Venipuncture / Unknown 04/05/2025 12:15 PM EDT 04/05/2025 1:04 PM EDT Una Perla PharmD LAB BLOOD ORDERABLES Final R esult [facility]
[address] [place] [address], * (ABNORMAL) aPTT (04/05/2025 3:54 AM EDT) PTT 35.3(L) 60.0 - 90.0 seconds 04/05/2025 4:31 AM EDT [facility] Blood Venipuncture / Unknown 04/05/2025 3:54 AM EDT 04/05/2025 4:15 AM EDT Narrative [facility] - 04/05/2025 4:31 AM EDT PTT = The equivalent PTT values for the therapeutic range of heparin levels at 0.3 to 0.5 U/ml are 60 to 70 seconds. Una Perla PharmD LAB BLOOD ORDERABLES Final R esult [facility]
[address] [place] [address], * Heparin Anti-Xa (04/05/2025 3:54 AM EDT) Pathologist [facility] Heparin Anti-Xa (UFH) 0.30 0.30 - 0.70 IU/ml 04/05/2025 4:32 AM EDT [facility] Blood Venipuncture / Unknown 04/05/2025 3:54 AM EDT 04/05/2025 4:15 AM EDT Una DigitwhizD LAB BLOOD ORDERABLES Final R esult Performing Organization Address City/[facility]/ZIP Co de Phone Number [facility]
[address] [place] [address], * (ABNORMAL) CBC Auto Differential (04/05/2025 3:54 AM EDT) Pathologist [facility] WBC 11.18(H) 3.40 - 10.80 10*3/mm3 04/05/2025 4:20 AM EDT [facility] RBC 5.00 4.14 - 5.80 10*6/mm3 04/05/2025 4:20 AM EDT [facility] Hemoglobin 13.9 13.0 - 17.7 g/dL 04/05/2025 4:20 AM EDT [facility] Hematocrit 42.4 37.5 - 51.0 % 04/05/2025 4:20 AM EDT [facility] MCV 84.8 79.0 - 97.0 fL 04/05/2025 4:20 AM EDT [facility] MCH 27.8 26.6 - 33.0 pg 04/05/2025 4:20 AM EDT [facility] MCHC 32.8 31.5 - 35.7 g/dL 04/05/2025 4:20 AM [facility] RDW 12.9 12.3 - 15.4 % 04/05/2025 4:20 AM [facility] RDW-SD 39.7 37.0 - 54.0 fl 04/05/2025 4:20 AM [facility] MPV 10.2 6.0 - 12.0 fL 04/05/2025 4:20 AM [facility] Platelets 160 140 - 450 10*3/mm3 04/05/2025 4:20 AM [facility] Neutrophil % 73.5 42.7 - 76.0 % 04/05/2025 4:20 AM [facility] Lymphocyte % 14.0(L) 19.6 - 45.3 % 04/05/2025 4:20 AM [facility] Monocyte % 11.0 5.0 - 12.0 % 04/05/2025 4:20 AM [facility] Eosinophil % 0.8 0.3 - 6.2 % 04/05/2025 4:20 AM [facility] Basophil % 0.3 0.0 - 1.5 % 04/05/2025 4:20 AM [facility] Immature Grans % 0.4 0.0 - 0.5 % 04/05/2025 4:20 AM [facility] Neutrophils, Absolute 8.23(H) 1.70 - 7.00 10*3/mm3 04/05/2025 4:20 AM [facility] Lymphocytes, Absolute 1.56 0.70 - 3.10 10*3/mm3 04/05/2025 4:20 AM [facility] Monocytes, Absolute 1.23(H) 0.10 - 0.90 10*3/mm3 04/05/2025 4:20 AM [facility] Eosinophils, Absolute 0.09 0.00 - 0.40 10*3/mm3 04/05/2025 4:20 AM [facility] Basophils, Absolute 0.03 0.00 - 0.20 10*3/mm3 04/05/2025 4:20 AM EDT [facility] Immature Grans, Absolute 0.04 0.00 - 0.05 10*3/mm3 04/05/2025 4:20 AM EDT [facility] nRBC 0.0 0.0 - 0.2 /100 WBC 04/05/2025 4:20 AM EDT [facility] Blood Venipuncture / Unknown 04/05/2025 3:54 AM EDT 04/05/2025 4:16 AM EDT Una Perla PharmD LAB BLOOD ORDERABLES Final R esult [facility]
[address] [place] [address], * (ABNORMAL) Basic Metabolic Panel (04/05/2025 3:54 AM EDT) Glucose 152(H) 65 - 99 mg/dL 04/05/2025 4:40 AM EDT [facility] BUN 17.3 6.0 - 20.0 mg/dL 04/05/2025 4:40 AM EDT [facility] Creatinine 0.92 0.76 - 1.27 mg/dL 04/05/2025 4:40 AM EDT [facility] Sodium 136 136 - 145 mmol/L 04/05/2025 4:40 AM EDT [facility] Potassium 3.9 3.5 - 5.2 mmol/L 04/05/2025 4:40 AM EDT [facility] Chloride 103 98 - 107 mmol/L 04/05/2025 4:40 AM EDT [facility] CO2 24.0 22.0 - 29.0 mmol/L 04/05/2025 4:40 AM EDT [facility] Calcium 7.8(L) 8.6 - 10.5 mg/dL 04/05/2025 4:40 AM EDT [facility] BUN/Creatinine Ratio 18.8 7.0 - 25.0 04/05/2025 4:40 AM EDT [facility] Anion Gap 9.0 5.0 - 15.0 mmol/L 04/05/2025 4:40 AM EDT [facility] eGFR 105.2 >60.0 mL/min/1.7 3 04/05/2025 4:40 AM EDT [facility] Blood Venipuncture / Unknown 04/05/2025 3:54 AM EDT 04/05/2025 4:15 AM EDT [facility] - 04/05/2025 4:40 AM EDT [...] MD LAB BLOOD ORDERABLES Final Re sult [facility]
[address] [place] [address], * (ABNORMAL) aPTT (04/05/2025 12:18 AM EDT) PTT 33.6(L) 60.0 - 90.0 seconds 04/05/2025 12:53 AM EDT [facility] Blood Venipuncture / Unknown 04/05/2025 12:18 AM EDT 04/05/2025 12:37 AM EDT [facility] - 04/05/2025 12:53 AM EDT PTT = The equivalent PTT values for the therapeutic range of heparin levels at 0.3 to 0.5 U/ml are 60 to 70 seconds. [employer] PharmD LAB BLOOD ORDERABLES Final R esult Performing Organization Address City/[facility]/ZIP Co de Phone Number [facility]
[address] [place] [address], * (ABNORMAL) Protime-INR (04/05/2025 12:18 AM EDT) Protime 15.9(H) 12.2 - 15.3 Seconds 04/05/2025 12:53 AM EDT [facility] INR 1.19(H) 0.89 - 1.12 04/05/2025 12:53 AM EDT [facility] Blood Venipuncture / Unknown 04/05/2025 12:18 AM EDT 04/05/2025 12:37 AM EDT [employer] PharmD LAB BLOOD ORDERABLES Final R esult Performing Organization Address [facility] Co de Phone Number [facility]
[address] [place] [address], * Heparin Anti-Xa (04/05/2025 12:18 AM EDT) Pathologist [facility] Heparin Anti-Xa (UFH) 0.39 0.30 - 0.70 IU/ml 04/05/2025 12:54 AM EDT [facility] Blood Venipuncture / Unknown 04/05/2025 12:18 AM EDT 04/05/2025 12:37 AM EDT [employer] PharmD LAB BLOOD ORDERABLES Final R esult Performing Organization Address City/[facility]/ZIP Co de Phone Number [facility]
[address] [place] [address], * MRI Tibia Fibula Right With & [...] MD 04/04/2025 11:00 PM EDT Workstation ID: [id number] Narrative 04/04/2025 11:00 PM EDT MRI TIBIA [...] MD 04/04/2025 11:00 PM EDT Workstation ID: [id number] Leonora Shepherd MD IMG MRI ORDERABLES Final Resu lt * POC Creatinine (04/04/2025 2:49 PM EDT) Creatinine 1.10 0.60 - 1.30 mg/dL 04/07/2025 7:14 PM EDT [facility] Comment:Serial Number: [id number]: [id number] Venous Blood 04/04/2025 2:49 PM EDT 04/07/2025 7:14 PM EDT Jason Álvarez DO POINT OF CARE TEST ORDERABLES Fi nal Result [facility]
[address] [place] [address], * (ABNORMAL) CBC Auto Differential (04/04/2025 2:47 PM EDT) [facility] WBC 12.72(H) 3.40 - 10.80 10*3/mm3 04/04/2025 2:56 PM EDT [facility] RBC 5.64 4.14 - 5.80 10*6/mm3 04/04/2025 2:56 PM EDT [facility] Hemoglobin 15.3 13.0 - 17.7 g/dL 04/04/2025 2:56 PM EDT [facility] Hematocrit 47.9 37.5 - 51.0 % 04/04/2025 2:56 PM EDT [facility] MCV 84.9 79.0 - 97.0 fL 04/04/2025 2:56 PM EDT [facility] MCH 27.1 26.6 - 33.0 pg 04/04/2025 2:56 PM EDT [facility] MCHC 31.9 31.5 - 35.7 g/dL 04/04/2025 2:56 PM EDT [facility] RDW 13.1 12.3 - 15.4 % 04/04/2025 2:56 PM EDT [facility] RDW-SD 40.3 37.0 - 54.0 fl 04/04/2025 2:56 PM EDT [facility] MPV 9.4 6.0 - 12.0 fL 04/04/2025 2:56 PM EDT [facility] Platelets 232 140 - 450 10*3/mm3 04/04/2025 2:56 PM EDT [facility] Neutrophil % 74.9 42.7 - 76.0 % 04/04/2025 2:56 PM EDT [facility] Lymphocyte % 13.1(L) 19.6 - 45.3 % 04/04/2025 2:56 PM EDT [facility] Monocyte % 11.2 5.0 - 12.0 % 04/04/2025 2:56 PM EDT [facility] Eosinophil % 0.4 0.3 - 6.2 % 04/04/2025 2:56 PM EDT [facility] Basophil % 0.2 0.0 - 1.5 % 04/04/2025 2:56 PM EDT [facility] Immature Grans % 0.2 0.0 - 0.5 % 04/04/2025 2:56 PM EDT [facility] Neutrophils, Absolute 9.52(H) 1.70 - 7.00 10*3/mm3 04/04/2025 2:56 PM EDT [facility] Lymphocytes, Absolute 1.66 0.70 - 3.10 10*3/mm3 04/04/2025 2:56 PM EDT [facility] Monocytes, Absolute 1.43(H) 0.10 - 0.90 10*3/mm3 04/04/2025 2:56 PM EDT [facility] Eosinophils, Absolute 0.05 0.00 - 0.40 10*3/mm3 04/04/2025 2:56 PM EDT [facility] Basophils, Absolute 0.03 0.00 - 0.20 10*3/mm3 04/04/2025 2:56 PM EDT [facility] Immature Grans, Absolute 0.03 0.00 - 0.05 10*3/mm3 04/04/2025 2:56 PM EDT [facility] nRBC 0.0 0.0 - 0.2 /100 WBC 04/04/2025 2:56 PM EDT [facility] Blood Venipuncture / Unknown 04/04/2025 2:47 PM EDT 04/04/2025 2:52 PM EDT us Mario Crowley DO LAB BLOOD ORDERABLES Fin al Result [facility]
[address] [place] [address], * (ABNORMAL) C-reactive Protein (04/04/2025 2:47 PM EDT) C-Reactive Protein 8.57(H) 0.00 - 0.50 mg/dL 04/04/2025 3:26 PM EDT [facility] Blood Venipuncture / Unknown 04/04/2025 2:47 PM EDT 04/04/2025 2:52 PM EDT [facility] Fin al Result Performing Organization Address City/[facility]/ZIP Co de Phone Number [facility]
[address] [place] [address], * (ABNORMAL) Sedimentation Rate (04/04/2025 2:47 PM EDT) Pathologist [facility] Sed Rate 51(H) 0 - 15 mm/hr 04/04/2025 3:06 PM EDT [facility] Blood Venipuncture / Unknown 04/04/2025 2:47 PM EDT 04/04/2025 2:52 PM EDT [facility]LOOD [facility]LES Fin al Result Performing Organization Address City/[facility]/RUST Co de Phone Number [facility]
[address] [place] [address], * Comprehensive Metabolic Panel (04/04/2025 2:47 PM EDT) Pathologist [facility] Glucose 90 65 - 99 mg/dL 04/04/2025 3:26 PM EDT [facility] BUN 18.3 6.0 - 20.0 mg/dL 04/04/2025 3:26 PM EDT [facility] Creatinine 0.94 0.76 - 1.27 mg/dL 04/04/2025 3:26 PM EDT [facility] Sodium 136 136 - 145 mmol/L 04/04/2025 3:26 PM EDT [facility] Potassium 3.8 3.5 - 5.2 mmol/L 04/04/2025 3:26 PM EDT [facility] Chloride 100 98 - 107 mmol/L 04/04/2025 3:26 PM EDT [facility] CO2 25.3 22.0 - 29.0 mmol/L 04/04/2025 3:26 PM EDT [facility] Calcium 8.6 8.6 - 10.5 mg/dL 04/04/2025 3:26 PM T [facility] Total Protein 7.3 6.0 - 8.5 g/dL 04/04/2025 3:26 PM EDT [facility] Albumin 4.1 3.5 - 5.2 g/dL 04/04/2025 3:26 PM T [facility] ALT (SGPT) 26 1 - 41 U/L 04/04/2025 3:26 PM [facility] AST (SGOT) 25 1 - 40 U/L 04/04/2025 3:26 PM T [facility] Alkaline Phosphatase 106 39 - 117 U/L 04/04/2025 3:26 PM T [facility] Total Bilirubin 1.0 0.0 - 1.2 mg/dL 04/04/2025 3:26 PM T [facility] Globulin 3.2 gm/dL 04/04/2025 3:26 PM [facility] Comment:Calculated Result A/G Ratio 1.3 g/dL 04/04/2025 3:26 PM [facility] BUN/Creatinine Ratio 19.5 7.0 - 25.0 04/04/2025 3:26 PM [facility] Anion Gap 10.7 5.0 - 15.0 mmol/L 04/04/2025 3:26 PM [facility] eGFR 102.5 >60.0 mL/min/1.7 3 04/04/2025 3:26 PM [facility] Blood Venipuncture / Unknown 04/04/2025 2:47 PM EDT 04/04/2025 2:52 PM EDT [facility] - 04/04/2025 3:26 PM [...] DO LAB BLOOD ORDERABLES Fin al Result [facility]
[address] [place] [address], documented in this encounter Visit Diagnoses Diagnosis [...] Salazar, KELL)[id number] (Given - Provider: Anahy Marcelino, TAILOR FITTER)[id number] (Canceled Entry - Provider: Anahy Marcelino TAILOR [employer]TER - Comment: previously given) 0837 (Given - [...] Continuous Medication Order 04/09/2025 04/10/2025 04/11/2025 heparin 76199 units/250 mL (100 units/mL) in 0.45 % [...] documented as of this encounter Care Teams Finding Fastener Relationship Specialty Start Date End Date Provider, [place] [address] PCP - General 05/09/23 documented as of this encounter
--- OUTSIDE RECORDS SUMMARY | 2025-04-07 20:36 | XMS_ITS | Encounter Summary ---
Author Organization [facility] Address [address] [place] [address] Care Team Providers Care Early Childhood Lead Teacher Name Role Phone Provider, No Known Primary Care Provider Unavail able Reason for Visit * Auth/Cert Specialty Diagnoses / Procedures Referred By Bulmaro muniz Referred To Contact Diagnoses Right BKA infection Referral ID Status Reason Start Date Expiration Date Visits Re quested Visits Authorized [id number] 1 1 Encounter Details Date Type Department Care Team (Late st Contact Info) Description 04/07/2025 8:36 PM EDT Anesthesia Event [facility] OR [address] [place] [address] Luci Alonso DO [address] [place] [address] Anesthesia Record Procedure Summary Procedure Name Responsible [...] Recorded In the past 12 months has [employer], gas, oil, or water [employer] threatened to shut off services in your [...] PACU on O2NC, breathing comfortably. Report to APPLICATION COORDINATOR at bedside. VSS. * Anesthesia Procedure Notes [...] Musculoskeletal Abdominal Substance History - negative use CUFF MATCHER Other ROS/Med Hx Other: Eliquis 04/04/25 Hgb 14.7 k 43.2 Factor 2 on eliquis +gerd Anesthesia Plan ASA 3 - emergent general Rapid sequence (Risks and benefits of general anesthesia discussed with patient (including [place], CVA, , recall,aspiration, oropharyngeal/dental damage), questions answered, agreeable to proceed. ) intravenous induction Anesthetic plan, risks, benefits, and alternatives have been provided, discussed and informed consent has been obtained with: patient. Plan discussed with CTO. CODE STATUS: Code Status (Patient has no [...] documented as of this encounter Care Teams Early Childhood Lead Teacher Relationship Specialty Start Date End Date Provider, No Known [facility] [place] [address] PCP - General 05/09/23 documented as of this encounter
--- OUTSIDE RECORDS SUMMARY | 2025-04-08 14:45 | XMS_ITS | Encounter Summary ---
[facility] [address] [place] [address] Care Team Providers Care Guest House Manager Name Role Phone Provider, No Known Primary Care Provider Unavail able Reason for Visit * Reason Comments Leg Swelling * Auth/Cert Specialty Diagnoses / Procedures Referred By Contac t Referred To Contact Diagnoses Right BKA infection Referral ID Status Reason Start Date Expiration Date Visits Re quested Visits Authorized [id number] 1 1 Encounter Details Date Type Department Care Team (Late st Contact Info) Description 04/08/2025 2:45 PM EDT - 04/08/2025 4:04 PM EDT Surgery [facility] OR [address] [place] [address] Sushil Dean Jr., MD [address] [place] [address] [address] [id number] LEG DEBRIDEMENT AND IRRIGATION Social History Tobacco Use Types Packs/Day Years Used Date Smoking Tobacco: Never Smokeless Tobacco: Never Tobacco Cessation:Counseling Given: Not Answered Alcohol Use Standard Drinks/Week Comments Not Currently 0 (1 standard drink = 0.6 oz pur e alcohol) [facility] Utilities Answer Date Recorded In the past 12 months has [employer] electric, gas, oil, or water company threatened [...] or training? Not on file Preferred Language Pakistani 04/07/2025 Sex and Gender Information Value Date [...] 2:25 PM EDT Cherri Grimm RN * [place] Suicide Severity Rating Scale (Screener/Recent Self-Report) Question Answer Date of Assessment Author 1. Wish to be (Past 1 Month) No 025 2:25 PM EDT Cherri Garcia RN 2. Non-Specific Active Suici mickey Thoughts (Past 1 Month) No 04/04/2025 2:25 PM EDT Wesley Garcia RN 6. Suicidal Behavior (Lifetime) No 2:25 PM EDT Chreri Garcia RN documented as of this encounter Discharge Summaries * Rosario Hill, DAVID - 04/11/2025 11:11 AM EDT Images from the original note were not included. [facility] Medicine Services DISCHARGE SUMMARY Patient [...] Date/Time Wound Culture - Swab, Leg, Right [[id number]] (Abnormal) (Susceptibility) Collected: 04/07/252106 Lab Status: Final [...] Units Date/Time FL C Arm During Surgery [[id number]] Resulted: 04/07/252137 Updated: 04/07/252137 Narrative: This procedure was auto-finalized with no dictation required. MRI Tibia Fibula Right With & Without Contrast [[id number]] Collected: 04/07/25 0938 Updated: 04/07/25 1001 Narrative: [...] Buenrostro 04/07/2025 9:58 AM EDT Workstation ID: [id number] MRI Tibia Fibula Right With & Without Contrast [[id number]] Collected: 04/04/252256 Updated: 04/04/252302 Narrative: MRI TIBIA [...] represent a small area of phlegmonous change ([id number] image 10) measuring approximately 1.6 cm which [...] MD 04/04/2025 11:00 PM EDT Workstation ID: [id number] Pending Labs Order Current Status Fungus Culture [...] Male) Date of 1980 Social Security Number [id number] [place] [address] [place] [address] Bahai Unknown Marital Status Unknown Admission Date 04/04/2025 Admission Type Emergency Admitting Provider Jadyn Richardson DO Attending Provider Jadyn Richardson DO Department, Room/Bed [facility] 5G, S565/1 Discharge Date Discharge [...] Group [place] [id number] Payor Plan Address Payor Plan Phone Number Payor Plan Fax Number Effective Dates [employer] [address] [address] 08/10/2023 - None Entered [facility] [address] Subscriber Name Subscriber Date Member ID WON DENNIS 1980 [id number] Emergency Contacts Studio Assistant (Rel.) Home Phone Work Phone Mobile Phone Avril Dennis (Spouse) -- -- [phone] Robert Hackett (Relative) -- -- [phone] [facility] 5G [address] [facility] [address] Patient: ROOM: [facility] Won Dennis [address] [facility] [place] [address] : 1980 SSN: [id number] Sex: M PCP: Provider, No Known Emergency Contact Information Name Relation Home Work Mobile Avril Dennis Spouse [phone] Other Contacts Name Relation Home Work Mobile Robert Hackett Relative [phone] INSURANCE PAYOR PLAN [employer] # SUBSCRIBER ID Primary: Secondary: MEDICARE [employer] [id number] Admitting Diagnosis: Right BKA infection [T87.43] Order Date: Apr 09, 2025 Case Management Internal Audit Senior Manager Consult (Order ID: [id number]) Diagnosis: Priority: Routine Expected Date: Expiration Date: Interval: Once Count: Comments: Outpatient orders: 1. Outpatient intravenous antibiotic therapy: Daptomycin 800 mg IV daily to be supplied by [facility] 2. Home health to perform [...] INFECTIOUS DISEASE Progress Note Won Dennis 1980 [id number] Date of Consult: 04/10/2025 Admission Date: 04/04/2025 [...] which prompted him to seek treatment at [facility]. He is known to Dr. [...] Jr., MD, 20 mg at 04/09/25906 heparin 35041 units/250 mL (100 units/mL) in 0.45 % [...] Units Date/Time FL C Arm During Surgery [[id number]] Resulted: 04/07/252137 Updated: 04/07/252137 Narrative: This procedure was auto-finalized with no dictation required. MRI Tibia Fibula Right With & Without Contrast [[id number]] Collected: 04/07/2538 Updated: 04/07/25 1001 Narrative: MRI [...] Buenrostro 04/07/2025 9:58 AM EDT Workstation ID: [id number] Impression: Recurrent Right BKA stump abscess/cellulitis- this [...] Date/Time Wound Culture - Swab, Leg, Right [[id number]] (Abnormal) (Susceptibility) Collected: 04/07/252106 Lab Status: Final [...] Row Name 04/06/25 1143 Sit-Stand Transfer Sit-Stand Coal (Transfers) modified independence - Comment, (Sit-Stand Transfer) Pt stood from recliner. Not holding onto walker, pt able to pull his pants up while balancing on his one leg. -LM Row Name 04/06/25 1143 Gait/Stairs (Locomotion) Coal Level (Gait) modified independence - Distance in [...] extremity ROM WFL -LM [facility] Name 04/06/25 1145 Strength Comprehensive (MMT) General Manual Muscle Testing (MMT) Assessment no strength deficits identified BLEs -LM [facility] Name 04/06/25 1145 Balance Balance [...] PT signing off. -LM [facility] Name 04/06/25 1146 Therapy Assessment/Plan (PT) Criteria for Skilled Interventions Met (PT) no;no problems identified which require skilled intervention -LM Therapy Frequency (PT) evaluation only -LM Predicted Duration of Therapy Intervention (PT) Eval Only -LM [facility] Name 04/06/25 1146 Vital Signs Pretreatment Heart Rate (beats/min) 86 -LM Posttreatment Heart Rate (beats/min) 96 -LM Pre SpO2 (%) 95 -LM O2 Delivery Pre Treatment room air -LM Post SpO2 (%) 96 -LM O2 Delivery Post Treatment room air -LM Pre Patient Position Sitting -LM Post Patient Position Sitting -LM [facility] Name 04/06/25 1146 Positioning and [...] Nurse Physical Therapy Education Title: PT OT MAINTENANCE SUPERVISOR MECHANICAL Therapies (Done) Topic: Physical Therapy (Done) Point: Mobility training (Done) Learning Progress Summary Patient Acceptance, E, VU,DU by at 04/06/2025 1147 Point: Precautions (Done) Learning Progress Summary Patient Acceptance, E, VU,DU by at 04/06/2025 1147 User Cabrera Initials Effective Dates Name Provider Type [facility] 01/24/25 - Susan Cavazos, PT [...] Description Service Date Service Provider Modifiers Qty [phone] PT EVAL LOW COMPLEXITY 3 04/06/2025 Susan [...] mg Daily 04/05/2025 -- Route: Oral heparin 19757 units/250 mL (100 units/mL) in 0.45 % [...] 22 [facility] [address], [address] [facility], [address] Please schedule at [phone] VONDA Garcia 04/11/25 08:32 EDT Cosigned by Sushil Dean Jr., MD at 04/19/2025 10:33 AM EDT Associated attestation - Sushil Dean Jr., MD - 04/19/2025 10:33 AM EDT I have reviewed this documentation and agree. * Rosario Hill APRN - 04/10/2025 1:24 PM EDT Images from the original note were not included. [facility] Medicine Services PROGRESS NOTE Patient [...] Date/Time Wound Culture - Swab, Leg, Right [[id number]] (Abnormal) (Susceptibility) Collected: 04/07/252106 Lab Status: Final [...] mg Daily 04/05/2025 -- Route: Oral heparin 73050 units/250 mL (100 units/mL) in 0.45 % [...] 22 [facility] [address] [facility], [address] [facility], [address] Please schedule at [phone] VONDA Garcia 04/10/25 09:01 EDT Cosigned by Sushil Dean Jr., MD at 04/19/2025 10:33 AM EDT Associated attestation - Sushil Dean Jr., MD - 04/19/2025 10:33 AM EDT I have reviewed this documentation and agree. * Carlton Mead MD - 04/10/2025 7:38 AM EDT Images from the original note were not included. INFECTIOUS DISEASE Progress Note Won Dennis 1980 [id number] Date of Consult: 04/10/2025 Admission Date: 04/04/2025 [...] which prompted him to seek treatment at [facility]. He is known to Dr. [...] IRRIGATION; Surgeon: Sushil Dean Jr., MD; Location: [facility] OR; Service: Orthopedics; Laterality: Right; PLACEMENT OF WOUND VAC Right 04/07/2025 Procedure: WOUND VACUUM ASSISTED CLOSURE; Surgeon: Sushil Dean Jr., MD; Location: [facility] OR; Service: Orthopedics; Laterality: Right; WOUND CLOSURE [...] Jr., MD, 20 mg at 04/09/25906 heparin 78400 units/250 mL (100 units/mL) in 0.45 % [...] Units Date/Time FL C Arm During Surgery [[id number]] Resulted: 04/07/252137 Updated: 04/07/252137 Narrative: This procedure was auto-finalized with no dictation required. MRI Tibia Fibula Right With & Without Contrast [[id number]] Collected: 04/07/25937 Updated: 04/07/25 100 Narrative: MRI [...] Buenrostro 04/07/2025 9:58 AM EDT Workstation ID: [id number] Impression: Recurrent Right BKA stump abscess/cellulitis- this [...] from the original note were not included. [facility] Medicine Services PROGRESS NOTE Patient [...] Date/Time Wound Culture - Swab, Leg, Right [[id number]] (Abnormal) Collected: 04/07/252106 Lab Status: Preliminary result [...] mg Daily 04/05/2025 -- Route: Oral heparin 60679 units/250 mL (100 units/mL) in 0.45 % [...] radiographs [facility] [address] [facility], [address] [facility], [address] Please schedule at [phone] VONDA Garcia 04/09/25 09:18 EDT Cosigned by Sushil Dean Jr., MD at 04/19/2025 10:33 AM EDT Associated attestation - Sushil Dean Jr., MD - 04/19/2025 10:33 AM EDT I have reviewed this documentation and agree. * Carlton Mead MD - 04/09/2025 8:25 AM EDT Images from the original note were not included. INFECTIOUS DISEASE Progress Note Won Dennis 1980 [id number] Date of Consult: 04/09/2025 Admission Date: 04/04/2025 [...] which prompted him to seek treatment at [facility]. He is known to Dr. [...] MD, 20 mg at 04/08/25 0800 heparin 14680 units/250 mL (100 units/mL) in 0.45 % NaCl infusion, 18 Units/kg/hr, Intravenous, Titrated, Una Peral, PharmD, Last Rate: 24.1 mL/hr at 04/09/25613, [...] Units Date/Time FL C Arm During Surgery [[id number]] Resulted: 04/07/252137 Updated: 04/07/252137 Narrative: This procedure was auto-finalized with no dictation required. MRI Tibia Fibula Right With & Without Contrast [[id number]] Collected: 04/07/25 0938 Updated: 04/07/25 1001 Narrative: [...] Chitra 04/07/2025 9:58 AM EDT Workstation ID: [id number] Impression: Recurrent Right BKA stump abscess/cellulitis- this [...] mg IV daily to be supplied by [facility] 2. Home health to perform [...] from the original note were not included. [facility] Medicine Services PROGRESS NOTE Patient [...] Buenrostro 04/07/2025 9:58 AM EDT Workstation ID: [id number] I have personally reviewed the therapy plans: [...] mg Daily 04/05/2025 -- Route: Oral heparin 12135 units/250 mL (100 units/mL) in 0.45 % [...] INFECTIOUS DISEASE Progress Note Won Dennis 1980 [id number] Date of Consult: 04/08/2025 Admission Date: 04/04/2025 [...] which prompted him to seek treatment at [facility]. He is known to Dr. [...] Oral, Q6H PRN, 500 mg at 04/06/25 8934 OR acetaminophen (TYLENOL) 160 MG/5ML oral solution [...] Jr., MD, 20 mg at 04/07/25950 heparin 96515 units/250 mL (100 units/mL) in 0.45 % [...] Units Date/Time FL C Arm During Surgery [[id number]] Resulted: 04/07/252137 Updated: 04/07/252137 Narrative: This procedure was auto-finalized with no dictation required. 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 (Treated by ID in [place] Dr. Harris). Dr. Torres treated him [...] from the original note were not included. [facility] Medicine Services PROGRESS NOTE Patient [...] Buenrostro 04/07/2025 9:58 AM EDT Workstation ID: [id number] I have personally reviewed the therapy plans: [...] INFECTIOUS DISEASE Progress Note Won Dennis 1980 [id number] Date of Consult: 04/07/2025 Admission Date: 04/04/2025 [...] which prompted him to seek treatment at [facility]. He is known to Dr. [...] MD, 20 mg at 04/06/25 0900 heparin 68819 units/250 mL (100 units/mL) in 0.45 % [...] mL 0.9% NS IVPB ([facility]) Ordering Provider: Mraio Crowley, DO 20 mg/kg [...] With & Without Contrast - In process [[id number]] Resulted: 04/07/25828 Updated: 04/07/25828 This result has not been signed. Information might be incomplete. MRI Tibia Fibula Right With & Without Contrast [[id number]] Collected: 04/04/252256 Updated: 04/04/253 Narrative: MRI TIBIA [...] MD 04/04/2025 11:00 PM EDT Workstation ID: [id number] Impression: Right BKA stump cellulitis- s/p BKA with multiple surgical interventions with Known MRSA 05/09/2025. (Treated by ID in [place] Dr. Harris). Dr. Torres treated him [...] mg Daily 04/05/2025 -- Route: Oral heparin 25144 units/250 mL (100 units/mL) in 0.45 % [...] 0.24 16 -- +2 18 2000 LU Beatyt RPH 04/06/2025 13:48 EDT * Jason Álvarez DO - 04/06/2025 12:47 PM EDT Images from the original note were not included. [facility] Medicine Services PROGRESS NOTE Patient [...] MD 04/04/2025 11:00 PM EDT Workstation ID: [id number] I have personally reviewed the therapy plans: [...] mg Daily 04/05/2025 -- Route: Oral heparin 03257 units/250 mL (100 units/mL) in 0.45 % [...] INFECTIOUS DISEASE follow up. Won Dennis 1980 [id number] Date of Consult: 04/06/2025 Admission Date: 04/04/2025 [...] which prompted him to seek treatment at [facility]. He is known to Dr. [...] puff, 2 puff, Inhalation, BID - RT, Jsaon Álvarez, DO Calcium Replacement - Follow Nurse [...] MD, 20 mg at 04/06/25 0900 heparin 44294 units/250 mL (100 units/mL) in 0.45 % [...] Tibia Fibula Right With & Without Contrast [[id number]] Collected: 04/04/252256 Updated: 04/04/252302 Narrative: MRI TIBIA [...] represent a small area of phlegmonous change ([id number] image 10) measuring approximately 1.6 cm which [...] MD 04/04/2025 11:00 PM EDT Workstation ID: [id number] Impression: Right BKA stump cellulitis- s/p BKA with multiple surgical interventions with Known MRSA 05/09/2025. (Treated by ID in [place] Dr. Harris). Dr. Torres treated him [...] from the original note were not included. [facility] Medicine Services PROGRESS NOTE Patient [...] MD 04/04/2025 11:00 PM EDT Workstation ID: [id number] I have personally reviewed the therapy plans: [...] from the original note were not included. [facility] Medicine Services HISTORY AND PHYSICAL [...] MD 04/04/2025 11:00 PM EDT Workstation ID: [id number] Assessment & Plan Assessment & Plan Won [...] 4FR PICC placed by Rhoda Bonner RN [facility], tip verified by 3CG see LDA. * Sushil Dean Jr., MD - 04/05/2025 8:07 AM EDTAssociated Order(s): IP CONSULT TO ORTHOPEDIC SURGERY [facility], [facility] [address] [address] Orthopedic Consult Patient: Won Dennis Date of Admission: 04/04/2025 4:10 PM Date of : 1980 Attending Physician: Jaosn Álvarez DO Consulting Physician: Sushil Dean Jr, [...] was evaluated in the emergency department in [place], was discharged with instructions for follow-up. He [...] Morning Lactobacillus-Inulin ([facility] Digestive [facility]) [...] MD 04/04/2025 11:00 PM EDT Workstation ID: [id number] Assessment: Right BKA infection 44-year-old male with [...] DISEASE CONSULT/INITIAL HOSPITAL VISIT Won Dennis 1980 [id number] Date of Consult: 04/05/2025 Admission Date: 04/04/2025 [...] which prompted him to seek treatment at [facility]. He is known to Dr. [...] Leonora Shepherd MD, 40 mg at 04/04/25 3411 sennosides-docusate (PERICOLACE) 8.6-50 MG per tablet 2 [...] MD, 20 mg at 04/05/25 09 heparin 74867 units/250 mL (100 units/mL) in 0.45 % [...] Leonora Shepherd MD, 10 mg at 04/04/25 8190 Pharmacy to Dose Heparin, , Not Applicable, Continuous PRAmber, Una Perla, PharmD Pharmacy to dose vancomycin, , Not Applicable, Continuous PRAmber, Leoonra Shepherd MD Phosphorus Replacement - Follow Nurse [...] Tibia Fibula Right With & Without Contrast [[id number]] Collected: 04/04/252256 Updated: 04/04/252302 Narrative: MRI TIBIA [...] MD 04/04/2025 11:00 PM EDT Workstation ID: [id number] Impression: Right BKA stump cellulitis- s/p BKA with multiple surgical interventions with Known MRSA 05/09/2025. (Treated by ID in [place] Dr. Harris). Dr. Torres treated him [...] documented in this encounter Nursing Notes * Bbo Rosenberg RN - 04/09/2025 2:34 AM EDT [...] infection POSTOP DIAGNOSIS: Same. PROCEDURE: Right Right 73307: Secondary closure below-knee amputation SURGEON: Sushil Dean MD OPERATIVE TEAM: Conservation Scientist: Susi Grullon RN Scrub Person: Mary Paredes Scrub Person Extra: Hortencia Toribio Other: Katt Gotti RN; Charis Neville RN ANESTHETIST: Anesthesiologist: Ulises Hoffman MD EEG TECH: Stan Casillas CRNA Student Nurse Cloth Drier: Karol Albert SRNA ANESTHESIA: Choice ESTIMATED BLOOD [...] CULTURE (Canceled) Sushil Dean Jr., MD 04/08/25 8556 Description: RIGHT LEG DEEP WOUND FOR CULTURE [...] PM EDT [facility], [place] [address] OPERATIVE REPORT PATIENT NAME: Won Dennis DATE OF : 1980 PREOP DIAGNOSIS: Right Right below knee amputation stump infection POSTOP DIAGNOSIS: Same. PROCEDURE: Right Right 44740: Incision and drainage of surgical site infection 50110: Debridement of skin, subcutaneous tissue, muscle 93804: Wound vacuum-assisted closure SURGEON: Sushil Dean MD OPERATIVE TEAM: Conservation Scientist: Anum Sanchez RN Scrub Person: Hortencia Toribio; Gerald Ivey DURALUMIN METALWORKER: Anesthesiologist: Luci Alonso DO ANESTHESIA: General ESTIMATED [...] ago swellling of the area. seen at [facility] yesterday for CT and US, [...] this chart in the absence of a licensing court magistrate. No orders to display RADIOLOGY: [x] Radiologist's [...] is discharging home with outpatient infusion at [facility]. He has an appointment with [facility] at 8:00 am tomorrow. They will do PICC line dressing changes. DEBRA has spoke with Dena at [facility] today multiple times to get setup due [...] to get IV ABX at home with [facility]; however, Medicaid lapsed on 04/08. DEBRA was unaware until this morning that Medicaid has lapsed. Patient explained that he has Medicare A and B. CM spoke with KELLEE and given themhis Medicare number [id number], she sent it to Admission. DEBRA spoke with Kerri, with [facility], and explained that he had Medicare A and B. However, it will not cover home infusion. It will be $64.00 a day out of packet. Patients can go to the Infusion center at [facility], and it will cover the cost as an outpatient. He will need to go there every day for infusion. They will be able to do the patients' PICC line dressing changes and lab work. DEBRA called Dena [facility] Outpatient infusion center they can accept patient and start him. He is known for their facility. The Facility will need to run it through his insurance first. CM faxed the orders over to [facility] at [phone]. CM will follow up with them tomorrow at [facility] to make sure they received [...] 04/09/2025 2:51 PM EDT Continued Stay Note [facility] Patient Name: Won Dennis Today's Date: 04/09/2025 Admit Date: 04/04/2025 Plan: Home Discharge Plan Row Name 04/09/25 1311 Plan Plan Home Patient/Family in Agreement with Plan yes Plan Comments CM spoke with patient at bedside today. Wheelchair from [facility] is at bedside. Patient getting PICC line [...] note were not included. 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 Patient lives with and his 5 kids in [facility]. 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 He has walker, cane, shower chair, and crutches. He requested a wheelchair for home. [facility] He is not current with [...] General Information Arrived From hospital Preferred Language Pakistani Functional Status Row Name 04/07/25 1143 Functional [...] AM EDT) [facility] WBC 7.87 3.40 - 10.80 10*3/mm3 04/11/2025 4:02 AM EDT [facility] RBC 4.70 4.14 - 5.80 10*6/mm3 04/11/2025 4:02 AM [facility] Hemoglobin 12.8(L) 13.0 - 17.7 g/dL 04/11/2025 4:02 AM [facility] Hematocrit 40.5 37.5 - 51.0 % 04/11/2025 4:02 AM [facility] MCV 86.2 79.0 - 97.0 fL 04/11/2025 4:02 AM [facility] MCH 27.2 26.6 - 33.0 pg 04/11/2025 4:02 AM [facility] MCHC 31.6 31.5 - 35.7 g/dL 04/11/2025 4:02 AM [facility] RDW 12.9 12.3 - 15.4 % 04/11/2025 4:02 AM [facility] RDW-SD 40.5 37.0 - 54.0 fl 04/11/2025 4:02 AM [facility] MPV 9.2 6.0 - 12.0 fL 04/11/2025 4:02 AM [facility] Platelets 267 140 - 450 10*3/mm3 04/11/2025 4:02 AM [facility] Neutrophil % 59.5 42.7 - 76.0 % 04/11/2025 4:02 AM [facility] Lymphocyte % 26.3 19.6 - 45.3 % 04/11/2025 4:02 AM [facility] Monocyte % 9.3 5.0 - 12.0 % 04/11/2025 4:02 AM [facility] Eosinophil % 4.1 0.3 - 6.2 % 04/11/2025 4:02 AM [facility] Basophil % 0.4 0.0 - 1.5 % 04/11[facility]2025 [facility] Immature Grans % 0.4 0.0 - 0.5 % 04/11/2025 4:02 AM EDT [facility] Neutrophils, Absolute 4.69 1.70 - 7.00 10*3/mm3 04/11/2025 4:02 AM EDT [facility] Lymphocytes, Absolute 2.07 0.70 - 3.10 10*3/mm3 04/11/2025 4:02 AM EDT [facility] Monocytes, Absolute 0.73 0.10 - 0.90 10*3/mm3 04/11/2025 4:02 AM EDT [facility] Eosinophils, Absolute 0.32 0.00 - 0.40 10*3/mm3 04/11/2025 4:02 AM EDT [facility] Basophils, Absolute 0.03 0.00 - 0.20 10*3/mm3 04/11/2025 4:02 AM EDT [facility] Immature Grans, Absolute 0.03 0.00 - 0.05 10*3/mm3 04/11/2025 4:02 AM EDT [facility] nRBC 0.0 0.0 - 0.2 /100 WBC 04/11/2025 4:02 AM EDT [facility] [facility] Blood Venipuncture / Unknown 04/11/2025 3:40 AM EDT 04/11/2025 3:59 AM EDT us Sushil Dean Jr., MD LAB BLOOD ORDERABLES Fi nal Result [facility]
[address] [place] [address], * (ABNORMAL) Comprehensive Metabolic Panel (04/11/2025 3:40 AM EDT) Glucose 108(H) 65 - 99 mg/dL 04/11/2025 4:19 AM EDT [facility] BUN 12.5 6.0 - 20.0 mg/dL 04/11/2025 4:19 AM EDT [facility] Creatinine 0.68(L) 0.76 - 1.27 mg/dL 04/11/2025 4:19 AM [facility] Sodium 140 136 - 145 mmol/L 04/11/2025 4:19 AM [facility] Potassium 3.8 3.5 - 5.2 mmol/L 04/11/2025 4:19 AM [facility] Chloride 105 98 - 107 mmol/L 04/11/2025 4:19 AM [facility] CO2 28.2 22.0 - 29.0 mmol/L 04/11/2025 4:19 AM [facility] Calcium 8.2(L) 8.6 - 10.5 mg/dL 04/11/2025 4:19 AM [facility] Total Protein 6.1 6.0 - 8.5 g/dL 04/11/2025 4:19 AM [facility] Albumin 3.1(L) 3.5 - 5.2 g/dL 04/11/2025 4:19 AM [facility] ALT (SGPT) 52(H) 1 - 41 U/L 04/11/2025 4:19 AM [facility] AST (SGOT) 40 1 - 40 U/L 04/11/2025 4:19 AM [facility] Alkaline Phosphatase 99 39 - 117 U/L 04/11/2025 4:19 AM [facility] Total Bilirubin 0.2 0.0 - 1.2 mg/dL 04/11/2025 4:19 AM [facility] Globulin 3.0 gm/dL 04/11/2025 4:19 AM [facility] Comment:Calculated Result A/G Ratio 1.0 g/dL 04/11/2025 4:19 AM [facility] BUN/Creatinine Ratio 18.4 7.0 - 25.0 04/11/2025 4:19 AM [facility] Anion Gap 6.8 5.0 - 15.0 mmol/L 04/11/2025 4:19 AM [facility] eGFR 117.5 >60.0 mL/min/1.7 3 04/11/2025 4:19 AM EDT [facility] Blood Venipuncture / Unknown 04/11/2025 3:40 AM EDT 04/11/2025 3:56 AM EDT [facility] - 04/11/2025 4:19 AM EDT GFR [...] Hill APRN LAB BLOOD ORDERABLES Final Result [facility]
[address] [place] [address], * (ABNORMAL) CBC Auto Differential (04/10/2025 3:46 AM EDT) WBC 9.60 3.40 - 10.80 10*3/mm3 04/10/2025 3:56 AM EDT [facility] RBC 4.67 4.14 - 5.80 10*6/mm3 04/10/2025 3:56 AM EDT [facility] Hemoglobin 12.9(L) 13.0 - 17.7 g/dL 04/10/2025 3:56 AM EDT [facility] Hematocrit 40.1 37.5 - 51.0 % 04/10/2025 3:56 AM EDT [facility] MCV 85.9 79.0 - 97.0 fL 04/10/2025 3:56 AM EDT [facility] MCH 27.6 26.6 - 33.0 pg 04/10/2025 3:[facility] MCHC 32.2 31.5 - 35.7 g/dL 04/10/2025 3:56 AM EDT [facility] RDW 12.9 12.3 - 15.4 % 04/10/2025 3:56 [facility] RDW-SD 40.5 37.0 - 54.0 fl 04/10/2025 3:56 AM EDT [facility] MPV 9.5 6.0 - 12.0 fL 04/10/2025 3:56 AM EDT [facility] Platelets 227 140 - 450 10*3/mm3 04/10/2025 3:56 AM [facility] Neutrophil % 59.1 42.7 - 76.0 % 04/10/2025 3:56 AM [facility] Lymphocyte % 29.0 19.6 - 45.3 % 04/10/2025 3:56 [facility] Monocyte % 8.1 5.0 - 12.0 % 04/10/2025 3:56 AM [facility] Eosinophil % 3.2 0.3 - 6.2 % 04/10/2025 3:56 AM [facility] Basophil % 0.4 0.0 - 1.5 % 04/10/2025 3:56 AM [facility] Immature Grans % 0.2 0.0 - 0.5 % 04/10/2025 3:56 [facility] Neutrophils, Absolute 5.67 1.70 - 7.00 10*3/mm3 04/10/2025 3:56 AM [facility] Lymphocytes, Absolute 2.78 0.70 - 3.10 10*3/mm3 04/10/2025 3:56 AM [facility] Monocytes, Absolute 0.78 0.10 - 0.90 10*3/mm3 04/10/2025 3:56 AM [facility] Eosinophils, Absolute 0.31 0.00 - 0.40 10*3/mm3 04/10/2025 3:56 AM EDT [facility] Basophils, Absolute 0.04 0.00 - 0.20 10*3/mm3 04/10/2025 3:56 AM EDT [facility] Immature Grans, Absolute 0.02 0.00 - 0.05 10*3/mm3 04/10/2025 3:56 AM EDT [facility] nRBC 0.0 0.0 - 0.2 /100 WBC 04/10/2025 3:56 AM EDT [facility] Blood Venipuncture / Unknown 04/10/2025 3:46 AM EDT 04/10/2025 3:53 AM EDT us Jason Álvarez DO LAB BLOOD ORDERABLES Final Resul t [facility]
[address] [place] [address], * (ABNORMAL) Basic Metabolic Panel (04/10/2025 3:46 AM EDT) Glucose 125(H) 65 - 99 mg/dL 04/10/2025 4:20 AM EDT [facility] BUN 15.9 6.0 - 20.0 mg/dL 04/10/2025 4:20 AM EDT [facility] Creatinine 0.77 0.76 - 1.27 mg/dL 04/10/2025 4:20 AM EDT [facility] Sodium 137 136 - 145 mmol/L 04/10/2025 4:20 AM EDT [facility] Potassium 3.9 3.5 - 5.2 mmol/L 04/10/2025 4:20 AM EDT [facility] Chloride 102 98 - 107 mmol/L 04/10/2025 4:20 AM EDT [facility] CO2 26.9 22.0 - 29.0 mmol/L 04/10/2025 4:20 AM EDT [facility] Calcium 7.9(L) 8.6 - 10.5 mg/dL 04/10/2025 4:20 AM EDT [facility] BUN/Creatinine Ratio 20.6 7.0 - 25.0 04/10/2025 4:20 AM EDT [facility] Anion Gap 8.1 5.0 - 15.0 mmol/L 04/10/2025 4:20 AM EDT [facility] eGFR 113.2 >60.0 mL/min/1.7 3 04/10/2025 4:20 AM EDT [facility] Blood Venipuncture / Unknown 04/10/2025 3:46 AM EDT 04/10/2025 3:52 AM EDT Narrative [facility] - 04/10/2025 4:20 AM [...] DO LAB BLOOD ORDERABLES Final Resul t [facility]
[address] [place] [address], * Heparin Anti-Xa (04/10/2025 3:46 AM EDT) Heparin Anti-Xa (UFH) 0.35 0.30 - 0.70 IU/ml 04/10/2025 4:23 AM EDT [facility] Blood Venipuncture / Unknown 04/10/2025 3:46 AM EDT 04/10/2025 3:53 AM EDT Larisa Hamilton [facility] LAB BLOOD ORDERABLES Final R esult [facility]
[address] [place] [address], * Heparin Anti-Xa (04/09/2025 10:05 AM EDT) Pathologist [facility] Heparin Anti-Xa (UFH) 0.36 0.30 - 0.70 IU/ml 04/09/2025 11:12 AM EDT [facility] Blood Venipuncture / Unknown 04/09/2025 10:05 AM EDT 04/09/2025 10:47 AM EDT Larisa Hamilton [facility] LAB BLOOD ORDERABLES Final R esult [facility]
[address] [place] [address], * (ABNORMAL) CBC Auto Differential (04/09/2025 4:18 AM EDT) Pathologist [facility] WBC 11.00(H) 3.40 - 10.80 10*3/mm3 04/09/2025 4:50 AM EDT [facility] RBC 4.70 4.14 - 5.80 10*6/mm3 04/09/2025 4:50 AM EDT [facility] Hemoglobin 13.0 13.0 - 17.7 g/dL 04/09/2025 4:50 AM EDT [facility] Hematocrit 40.4 37.5 - 51.0 % 04/09/2025 4:50 AM EDT [facility] MCV 86.0 79.0 - 97.0 fL 04/09/2025 4:50 AM EDT [facility] MCH 27.7 26.6 - 33.0 pg 04/09/2025 4:50 AM EDT [facility] MCHC 32.2 31.5 - 35.7 g/dL 04/09/2025 4:50 AM EDT [facility] RDW 12.8 12.3 - 15.4 % 04/09/2025 4:50 AM [facility] RDW-SD 39.9 37.0 - 54.0 fl 04/09/2025 4:50 AM [facility] MPV 10.0 6.0 - 12.0 fL 04/09/2025 4:50 AM [facility] Platelets 211 140 - 450 10*3/mm3 04/09/2025 4:50 AM [facility] Neutrophil % 74.8 42.7 - 76.0 % 04/09/2025 4:50 AM [facility] Lymphocyte % 15.4(L) 19.6 - 45.3 % 04/09/2025 4:50 AM [facility] Monocyte % 8.5 5.0 - 12.0 % 04/09/2025 4:50 AM [facility] Eosinophil % 0.6 0.3 - 6.2 % 04/09/2025 4:50 AM [facility] Basophil % 0.4 0.0 - 1.5 % 04/09/2025 4:50 AM [facility] Immature Grans % 0.3 0.0 - 0.5 % 04/09/2025 4:50 AM [facility] Neutrophils, Absolute 8.23(H) 1.70 - 7.00 10*3/mm3 04/09/2025 4:50 AM [facility] Lymphocytes, Absolute 1.69 0.70 - 3.10 10*3/mm3 04/09/2025 4:50 AM [facility] Monocytes, Absolute 0.94(H) 0.10 - 0.90 10*3/mm3 04/09/2025 4:50 AM [facility] Eosinophils, Absolute 0.07 0.00 - 0.40 10*3/mm3 04/09/2025 4:[facility] Basophils, Absolute 0.04 0.00 - 0.20 10*3/mm3 04/09/2025 4:50 AM EDT [facility] Immature Grans, Absolute 0.03 0.00 - 0.05 10*3/mm3 04/09/2025 4:50 AM EDT [facility] nRBC 0.0 0.0 - 0.2 /100 WBC 04/09/2025 4:50 AM EDT [facility] Blood Venipuncture / Unknown 04/09/2025 4:18 AM EDT 04/09/2025 4:31 AM EDT Sushil Dean Jr., MD LAB BLOOD ORDERABLES Fi nal Result Performing Organization Address City/[facility]/ZIP Co de Phone Number [facility]
[address] [place] [address], * Heparin Anti-Xa (04/09/2025 4:18 AM EDT) Heparin Anti-Xa (UFH) 0.41 0.30 - 0.70 IU/ml 04/09/2025 4:53 AM EDT [facility] Blood Venipuncture / Unknown 04/09/2025 4:18 AM EDT 04/09/2025 4:31 AM EDT Una LundbergD LAB BLOOD ORDERABLES Final R esult [facility]
[address] [place] [address], * (ABNORMAL) Basic Metabolic Panel (04/09/2025 4:18 AM EDT) Glucose 147(H) 65 - 99 mg/dL 04/09/2025 5:33 AM EDT [facility] BUN 23.0(H) 6.0 - 20.0 mg/dL 04/09/2025 5:33 AM EDT [facility] Creatinine 1.15 0.76 - 1.27 mg/dL 04/09/2025 5:33 AM EDT [facility] Sodium 135(L) 136 - 145 mmol/L 04/09/2025 5:33 AM EDT [facility] Potassium 4.2 3.5 - 5.2 mmol/L 04/09/2025 5:33 AM EDT [facility] Chloride 100 98 - 107 mmol/L 04/09/2025 5:33 AM EDT [facility] CO2 26.0 22.0 - 29.0 mmol/L 04/09/2025 5:33 AM EDT [facility] Calcium 8.2(L) 8.6 - 10.5 mg/dL 04/09/2025 5:33 AM EDT [facility] BUN/Creatinine Ratio 20.0 7.0 - 25.0 04/09/2025 5:33 AM EDT [facility] Anion Gap 9.0 5.0 - 15.0 mmol/L 04/09/2025 5:33 AM EDT [facility] eGFR 80.5 >60.0 mL/min/1.7 3 04/09/2025 5:33 AM EDT [facility] Blood Venipuncture / Unknown 04/09/2025 4:18 AM EDT 04/09/2025 4:29 AM EDT [facility] - 04/09/2025 5:33 AM EDT GFR [...] MD LAB BLOOD ORDERABLES Fi nal Result [facility]
[address] [place] [address], * Wound Culture - Swab, Leg, Right (04/08/2025 3:40 PM EDT) Wound Culture No growth at 3 days ALIZA 04/11/2025 10:40 AM EDT [facility] Gram Stain Few (2+) WBCs seen 04/11/2025 10:40 AM EDT [facility] Gram Stain No organisms seen 04/11/2025 10:40 AM EDT [facility] Swab Structure of right lower limb / Unknown 04/08/2025 3:40 PM EDT 04/08/2025 8:05 PM EDT us Sushil Dean Jr., MD MICROBIOLOGY - GENERAL ORDERABLES Final Result Performing Organization Address City/[facility]/ZIP Co de Phone Number [facility]
[address] [place] [address], [facility]
[address] [place] [address], * Anaerobic Culture - Swab, Leg, Right [...] [facility]/ZIP Co de Phone Number [facility]
[address] [place] [address], * Scan Slide (04/08/2025 8:41 AM EDT) RBC Morphology Normal Normal 04/08/2025 11:02 AM EDT [facility] WBC Morphology Normal Normal 04/08/2025 11:02 AM EDT [facility] Platelet Estimate Adequate Normal 04/08/2025 11:02 AM EDT [facility] Clumped Platelets Present None Seen 04/08/2025 11:02 AM EDT [facility] Blood Venipuncture / Unknown 04/08/2025 8:41 AM EDT 04/08/2025 9:10 AM EDT Una Minda PharmD LAB BLOOD ORDERABLES Final R esult [facility]
[address] [place] [address], * (ABNORMAL) CBC Auto Differential (04/08/2025 8:41 AM EDT) WBC 10.07 3.40 - 10.80 10*3/mm3 04/08/2025 11:02 AM EDT [facility] RBC 5.01 4.14 - 5.80 10*6/mm3 04/08/2025 11:02 AM EDT [facility] Hemoglobin 14.0 13.0 - 17.7 g/dL 04/08/2025 11:02 AM EDT [facility] Hematocrit 42.7 37.5 - 51.0 % 04/08/2025 11:02 AM EDT [facility] MCV 85.2 79.0 - 97.0 fL 04/08/2025 11:02 AM EDT [facility] MCH 27.9 26.6 - 33.0 pg 04/08/2025 11:02 AM EDT [facility] MCHC 32.8 31.5 - 35.7 g/dL 04/08/2025 11:02 AM EDT [facility] RDW 12.6 12.3 - 15.4 % 04/08/2025 11:02 AM EDT [facility] RDW-SD 38.9 37.0 - 54.0 fl 04/08/2025 11:02 AM [facility] MPV 11.0 6.0 - 12.0 fL 04/08/2025 11:02 AM [facility] Platelets 118(L) 140 - 450 10*3/mm3 04/08/2025 11:02 AM [facility] Neutrophil % 85.1(H) 42.7 - 76.0 % 04/08/2025 11:02 AM [facility] Lymphocyte % 9.3(L) 19.6 - 45.3 % 04/08/2025 11:02 AM [facility] Monocyte % 4.6(L) 5.0 - 12.0 % 04/08/2025 11:02 AM [facility] Eosinophil % 0.3 0.3 - 6.2 % 04/08/2025 11:02 AM [facility] Basophil % 0.2 0.0 - 1.5 % 04/08/2025 11:02 AM [facility] Immature Grans % 0.5 0.0 - 0.5 % 04/08/2025 11:02 AM [facility] Neutrophils, Absolute 8.57(H) 1.70 - 7.00 10*3/mm3 04/08/2025 11:02 AM [facility] Lymphocytes, Absolute 0.94 0.70 - 3.10 10*3/mm3 04/08/2025 11:02 AM [facility] Monocytes, Absolute 0.46 0.10 - 0.90 10*3/mm3 04/08/2025 11:02 AM [facility] Eosinophils, Absolute 0.03 0.00 - 0.40 10*3/mm3 04/08/2025 11:02 AM [facility] Basophils, Absolute 0.02 0.00 - 0.20 10*3/mm3 04/08/2025 11:02 AM [facility] Immature Grans, Absolute 0.05 0.00 - 0.05 10*3/mm3 04/08/2025 11:02 AM EDT [facility] nRBC 0.0 0.0 - 0.2 /100 WBC 04/08/2025 11:02 AM EDT [facility] Blood Venipuncture / Unknown 04/08/2025 8:41 AM EDT 04/08/2025 9:10 AM EDT Una Perla PharmD LAB BLOOD ORDERABLES Final R esult [facility]
[address] [place] [address], * (ABNORMAL) Basic Metabolic Panel (04/08/2025 8:41 AM EDT) Glucose 125(H) 65 - 99 mg/dL 04/08/2025 9:51 AM EDT [facility] BUN 13.2 6.0 - 20.0 mg/dL 04/08/2025 9:51 AM EDT [facility] Creatinine 0.69(L) 0.76 - 1.27 mg/dL 04/08/2025 9:51 AM EDT [facility] Sodium 136 136 - 145 mmol/L 04/08/2025 9:51 AM EDT [facility] Potassium 4.6 3.5 - 5.2 mmol/L 04/08/2025 9:51 AM EDT [facility] Chloride 102 98 - 107 mmol/L 04/08/2025 9:51 AM EDT [facility] CO2 23.5 22.0 - 29.0 mmol/L 04/08/2025 9:51 AM EDT [facility] Calcium 8.4(L) 8.6 - 10.5 mg/dL 04/08/2025 9:51 AM EDT [facility] BUN/Creatinine Ratio 19.1 7.0 - 25.0 04/08/2025 9:51 AM EDT [facility] Anion Gap 10.5 5.0 - 15.0 mmol/L 04/08/2025 9:51 AM EDT [facility] eGFR 117.0 >60.0 mL/min/1.7 3 04/08/2025 9:51 AM EDT [facility] Blood Venipuncture / Unknown 04/08/2025 8:41 AM EDT 04/08/2025 9:09 AM EDT Narrative [facility] - 04/08/2025 9:51 AM [...] [facility]/ZIP Co de Phone Number [facility]
[address] [place] [address], * Heparin Anti-Xa (04/08/2025 8:41 AM EDT) Heparin Anti-Xa (UFH) 0.33 0.30 - 0.70 IU/ml 04/08/2025 9:40 AM EDT [facility] Blood Venipuncture / Unknown 04/08/2025 8:41 AM EDT 04/08/2025 9:10 AM EDT Sushil Dean Jr., MD LAB BLOOD ORDERABLES Fi nal Result Performing Organization Address City/[facility]/ZIP Co de Phone Number [facility]
[address] [place] [address], * [place] C Arm During Surgery (04/07/2025 [...] Occasional WBCs seen 04/11/2025 10:40 AM EDT [facility] Gram Stain No organisms seen 04/11/2025 10:40 AM EDT [facility] Swab Structure of right lower limb / Unknown Collection / Unknown 04/07/2025 9:14 PM EDT 04/08/2025 4:36 AM EDT us Sushil Dean Jr., MD MICROBIOLOGY - GENERAL ORDERABLES Final Result Performing Organization Address City/[facility]/ZIP Co de Phone Number [facility]
[address] [place] [address], [place] [phone] [facility]
[address] [place] [address], [place] [phone] * Anaerobic Culture - Swab, Leg, Right (04/07/2025 9:14 PM EDT) Anaerobic Culture No anaerobes isolated at 5 days ALIZA 04/13/2025 7:21 AM EDT [facility] Swab Structure of right lower limb / Unknown Collection / Unknown 04/07/2025 9:14 PM EDT 04/08/2025 4:36 AM EDT us Sushil Dean Jr., MD MICROBIOLOGY - GENERAL ORDERABLES Final Result [facility]
[address] [place] [address], * Anaerobic Culture - Tissue, Leg (04/07/2025 9:13 PM EDT) Anaerobic Culture No anaerobes isolated at 5 days ALIZA 04/13/2025 7:21 AM EDT [facility] Tissue Lower limb structure / Unknown Collection / Unknown 04/07/2025 9:13 PM EDT 04/08/2025 4:54 AM EDT Jason Álvarez DO MICROBIOLOGY - GENERAL ORDERABLE S Final Result Performing Organization Address [facility]/State/ZIP Co de Phone Number [facility]
[address] [place] [address], * Tissue / Bone Culture - Tissue, Leg, Right (04/07/2025 9:13 PM EDT) Tissue Culture No growth at 3 days ALIZA 04/11/2025 10:36 AM EDT [facility] Gram Stain Rare (1+) WBCs seen 04/11/2025 10:36 AM EDT [facility] Gram Stain No organisms seen 04/11/2025 10:36 AM EDT [facility] Tissue Structure of right lower limb / Unknown 04/07/2025 9:13 PM EDT 04/08/2025 4:54 AM EDT Sushil Dean Jr., MD MICROBIOLOGY - GENERAL ORDERABLES Final Result [facility]
[address] [place] [address], [facility]
[address] [place] [address], [place] [phone] * (ABNORMAL) Wound Culture - Swab, Leg, Right (04/07/2025 9:07 PM EDT) Wound Culture Light growth (2+) Staphylococcus aureus, MRSA(A) ALIZA 04/10/2025 10:38 AM EDT [facility] Comment: Methicillin resistant Staphylococcus aureus, Patient may be an isolation risk. Gram Stain Few (2+) WBCs seen 04/10/2025 10:38 AM EDT [facility] Gram Stain No organisms seen 10:38 AM EDT [facility] Swab Structure of right [...] Final Result [facility]
[address] [place] [address], [place] [phone] [facility]
[address] [place] [address], [place] [phone] * Anaerobic Culture - Swab, Leg, Right (04/07/2025 9:07 PM EDT) Anaerobic Culture No anaerobes isolated at 5 days ALIZA 04/13/2025 7:21 AM EDT [facility] Swab Structure of right lower limb / Unknown Collection / Unknown 04/07/2025 9:07 PM EDT 04/08/2025 4:36 AM EDT us Sushil Dean Jr., MD MICROBIOLOGY - GENERAL ORDERABLES Final Result [facility]
[address] [place] [address], * Heparin Anti-Xa (04/07/2025 9:10 AM EDT) Pathologist [facility] Heparin Anti-Xa (UFH) 0.30 0.30 - 0.70 IU/ml 04/07/2025 10:12 AM EDT [facility] Blood Venipuncture / Unknown 04/07/2025 9:10 AM EDT 04/07/2025 9:38 AM EDT Una Perla PharmD LAB BLOOD ORDERABLES Final R esult Performing Organization Address City/[facility]/ZIP Co de Phone Number [facility]
[address] [place] [address], * (ABNORMAL) CBC Auto Differential (04/07/2025 9:10 AM EDT) Pathologist [facility] WBC 8.63 3.40 - 10.80 10*3/mm3 04/07/2025 9:50 AM EDT [facility] RBC 5.23 4.14 - 5.80 10*6/mm3 04/07/2025 9:50 AM EDT [facility] Hemoglobin 14.7 13.0 - 17.7 g/dL 04/07/2025 9:50 AM EDT [facility] Hematocrit 44.8 37.5 - 51.0 % 04/07/2025 9:50 AM EDT [facility] MCV 85.7 79.0 - 97.0 fL 04/07/2025 9:50 AM EDT [facility] MCH 28.1 26.6 - 33.0 pg 04/07/2025 9:50 AM EDT [facility] MCHC 32.8 31.5 - 35.7 g/dL 04/07/2025 9:50 AM EDT [facility] RDW 12.8 12.3 - 15.4 % 04/07/2025 9:50 AM [facility] RDW-SD 39.9 37.0 - 54.0 fl 04/07/2025 9:50 AM [facility] MPV 10.8 6.0 - 12.0 fL 04/07/2025 9:50 AM [facility] Platelets 149 140 - 450 10*3/mm3 04/07/2025 9:50 AM [facility] Neutrophil % 66.7 42.7 - 76.0 % 04/07/2025 9:50 AM [facility] Lymphocyte % 20.5 19.6 - 45.3 % 04/07/2025 9:50 AM [facility] Monocyte % 9.8 5.0 - 12.0 % 04/07/2025 9:50 AM [facility] Eosinophil % 2.1 0.3 - 6.2 % 04/07/2025 9:50 AM [facility] Basophil % 0.3 0.0 - 1.5 % 04/07/2025 9:50 AM [facility] Immature Grans % 0.6(H) 0.0 - 0.5 % 04/07/2025 9:50 AM [facility] Neutrophils, Absolute 5.75 1.70 - 7.00 10*3/mm3 04/07/2025 9:50 AM [facility] Lymphocytes, Absolute 1.77 0.70 - 3.10 10*3/mm3 04/07/2025 9:50 AM [facility] Monocytes, Absolute 0.85 0.10 - 0.90 10*3/mm3 04/07/2025 9:50 AM [facility] Eosinophils, Absolute 0.18 0.00 - 0.40 10*3/mm3 04/07/2025 9:50 AM [facility] Basophils, Absolute 0.03 0.00 - 0.20 10*3/mm3 04/07/2025 9:50 AM [facility] Immature Grans, Absolute 0.05 0.00 - 0.05 10*3/mm3 04/07/2025 9:50 AM EDT [facility] nRBC 0.0 0.0 - 0.2 /100 WBC 04/07/2025 9:50 AM EDT [facility] Blood Venipuncture / Unknown 04/07/2025 9:10 AM EDT 04/07/2025 9:38 AM EDT us Jason Álvarez DO LAB BLOOD ORDERABLES Final Resul t [facility]
[address] [place] [address], * (ABNORMAL) Basic Metabolic Panel (04/07/2025 9:10 AM EDT) Glucose 112(H) 65 - 99 mg/dL 04/07/2025 10:19 AM EDT [facility] BUN 13.1 6.0 - 20.0 mg/dL 04/07/2025 10:19 AM EDT [facility] Creatinine 0.77 0.76 - 1.27 mg/dL 04/07/2025 10:19 AM EDT [facility] Sodium 139 136 - 145 mmol/L 04/07/2025 10:19 AM EDT [facility] Potassium 4.2 3.5 - 5.2 mmol/L 04/07/2025 10:19 AM EDT [facility] Comment:Specimen hemolyzed. Result may be falsely elevated. Chloride 105 98 - 107 mmol/L 04/07/2025 10:19 AM EDT [facility] CO2 24.8 22.0 - 29.0 mmol/L 04/07/2025 10:19 AM EDT [facility] Calcium 8.6 8.6 - 10.5 mg/dL 04/07/2025 10:19 AM EDT [facility] BUN/Creatinine Ratio 17.0 7.0 - 25.0 04/07/2025 10:19 AM EDT [facility] Anion Gap 9.2 5.0 - 15.0 mmol/L 04/07/2025 10:19 AM EDT [facility] eGFR 113.2 >60.0 mL/min/1.7 3 04/07/2025 10:19 AM EDT [facility] Blood Venipuncture / Unknown 04/07/2025 9:10 AM EDT 04/07/2025 9:38 AM EDT Narrative [facility] - 04/07/2025 10:19 AM [...] DO LAB BLOOD ORDERABLES Final Resul t [facility]
[address] [place] [address], * MRI Tibia Fibula Right With & [...] [place] 04/07/2025 9:58 AM EDT Workstation ID: [id number] Narrative 04/07/2025 9:58 AM EDT MRI TIBIA [...] [place] 04/07/2025 9:58 AM EDT Workstation ID: [id number] Sushil Dean Jr., MD IMG MRI ORDERABLES Mary Beth l Result * Heparin Anti-Xa (04/07/2025 1:42 AM EDT) [facility] Heparin Anti-Xa (UFH) 0.38 0.30 - 0.70 IU/ml 04/07/2025 2:14 AM EDT [facility] Blood Venipuncture / Unknown 04/07/2025 1:42 AM EDT 04/07/2025 1:54 AM EDT Chelsie Turpin [facility] LAB BLOOD ORDERABLES Final R esult [facility]
[address] [place] [address], * Heparin Anti-Xa (04/06/2025 7:16 PM EDT) [facility] Heparin Anti-Xa (UFH) 0.33 0.30 - 0.70 IU/ml 04/06/2025 7:50 PM EDT [facility] Blood Venipuncture / Unknown 04/06/2025 7:16 PM EDT 04/06/2025 7:35 PM EDT Cherri Beatty [facility] LAB BLOOD ORDERABLES Final Res ult Performing Organization Address [facility] Co de Phone Number [facility]
[address] [place] [address], * Potassium (04/06/2025 7:16 PM EDT) [facility] Potassium 4.0 3.5 - 5.2 mmol/L 04/06/2025 7:53 PM EDT [facility] Blood Venipuncture / Unknown 04/06/2025 7:16 PM EDT 04/06/2025 7:35 PM EDT Jason Álvarez DO LAB BLOOD ORDERABLES Final Resul t Performing Organization Address [facility] de Phone Number [facility]
[address] [place] [address], * (ABNORMAL) Heparin Anti-Xa (04/06/2025 12:36 PM EDT) [facility] Heparin Anti-Xa (UFH) 0.24(L) 0.30 - 0.70 IU/ml 04/06/2025 1:23 PM EDT [facility] Blood Venipuncture / Unknown 04/06/2025 12:36 PM EDT 04/06/2025 1:07 PM EDT Una Perla PharmD LAB BLOOD ORDERABLES Final R esult Performing Organization Address [facility] Co de Phone Number [facility]
[address] [place] [address], * (ABNORMAL) Heparin Anti-Xa (04/06/2025 3:42 AM EDT) [facility] Heparin Anti-Xa (UFH) 0.25(L) 0.30 - 0.70 IU/ml 04/06/2025 5:30 AM EDT [facility] Blood Venipuncture / Unknown 04/06/2025 3:42 AM EDT 04/06/2025 4:59 AM EDT Chelsie Dyana [facility] LAB BLOOD ORDERABLES Final R esult [facility]
[address] [place] [address], * (ABNORMAL) Basic Metabolic Panel (04/06/2025 3:42 AM EDT) [facility] Glucose 94 65 - 99 mg/dL 04/06/2025 5:59 AM EDT [facility] BUN 12.8 6.0 - 20.0 mg/dL 04/06/2025 5:59 AM EDT [facility] Creatinine 0.80 0.76 - 1.27 mg/dL 04/06/2025 5:59 AM EDT [facility] Sodium 138 136 - 145 mmol/L 04/06/2025 5:59 AM EDT [facility] Potassium 3.6 3.5 - 5.2 mmol/L 04/06/2025 5:59 AM EDT [facility] Chloride 103 98 - 107 mmol/L 04/06/2025 5:59 AM EDT [facility] CO2 24.2 22.0 - 29.0 mmol/L 04/06/2025 5:59 AM EDT [facility] Calcium 8.0(L) 8.6 - 10.5 mg/dL 04/06/2025 5:59 AM EDT [facility] BUN/Creatinine Ratio 16.0 7.0 - 25.0 04/06/2025 5:59 AM EDT [facility] Anion Gap 10.8 5.0 - 15.0 mmol/L 04/06/2025 5:59 AM EDT [facility] eGFR 111.9 >60.0 mL/min/1.7 3 04/06/2025 5:59 AM EDT [facility] Blood Venipuncture / Unknown 04/06/2025 3:42 AM EDT 04/06/2025 5:20 AM EDT [facility] - 04/06/2025 5:59 AM EDT GFR [...] DO LAB BLOOD ORDERABLES Final Resul t [facility]
[address] [place] [address], * (ABNORMAL) CBC Auto Differential (04/06/2025 3:41 AM EDT) WBC 10.86(H) 3.40 - 10.80 10*3/mm3 04/06/2025 5:04 AM EDT [facility] RBC 5.08 4.14 - 5.80 10*6/mm3 04/06/2025 5:04 AM EDT [facility] Hemoglobin 13.9 13.0 - 17.7 g/dL 04/06/2025 5:04 AM EDT [facility] Hematocrit 43.7 37.5 - 51.0 % 04/06/2025 5:04 AM EDT [facility] MCV 86.0 79.0 - 97.0 fL 04/06/2025 5:[facility] MCH 27.4 26.6 - 33.0 pg 04/06/2025 5:04 AM [facility] MCHC 31.8 31.5 - 35.7 g/dL 04/06/2025 5:04 AM [facility] RDW 12.8 12.3 - 15.4 % 04/06/2025 5:04 AM [facility] RDW-SD 40.0 37.0 - 54.0 fl 04/06/2025 5:04 AM [facility] MPV 11.7 6.0 - 12.0 fL 04/06/2025 5:04 AM [facility] Platelets 115(L) 140 - 450 10*3/mm3 04/06/2025 5:04 AM [facility] Neutrophil % 65.3 42.7 - 76.0 % 04/06/2025 5:04 AM [facility] Lymphocyte % 20.5 19.6 - 45.3 % 04/06/2025 5:04 AM [facility] Monocyte % 11.8 5.0 - 12.0 % 04/06/2025 5:04 AM [facility] Eosinophil % 1.8 0.3 - 6.2 % 04/06/2025 5:04 AM [facility] Basophil % 0.3 0.0 - 1.5 % 04/06/2025 5:04 [facility] Immature Grans % 0.3 0.0 - 0.5 % 04/06/2025 5:04 AM [facility] Neutrophils, Absolute 7.09(H) 1.70 - 7.00 10*3/mm3 04/06/2025 5:04 AM [facility] Lymphocytes, Absolute 2.23 0.70 - 3.10 10*3/mm3 04/06/2025 5:04 AM [facility] Monocytes, Absolute 1.28(H) 0.10 - 0.90 10*3/mm3 04/06/2025 5:04 AM EDT [facility] Eosinophils, Absolute 0.20 0.00 - 0.40 10*3/mm3 04/06/2025 5:04 AM EDT [facility] Basophils, Absolute 0.03 0.00 - 0.20 10*3/mm3 04/06/2025 5:04 AM EDT [facility] Immature Grans, Absolute 0.03 0.00 - 0.05 10*3/mm3 04/06/2025 5:04 AM EDT [facility] nRBC 0.0 0.0 - 0.2 /100 WBC 04/06/2025 5:04 AM EDT [facility] Blood Venipuncture / Unknown 04/06/2025 3:41 AM EDT 04/06/2025 4:58 AM EDT Jason Álvarez DO LAB BLOOD ORDERABLES Final Resul t Performing Organization Address City/[facility] Co de Phone Number [facility]
[address] [place] [address], [place] [phone] * Heparin Anti-Xa (04/05/2025 8:43 PM EDT) Pathologist [facility] Heparin Anti-Xa (UFH) 0.38 0.30 - 0.70 IU/ml 04/05/2025 9:09 PM EDT [facility] Blood Venipuncture / Unknown 04/05/2025 8:43 PM EDT 04/05/2025 8:55 PM EDT us Cherri Beatty [facility] LAB BLOOD ORDERABLES Final Res ult Performing Organization Address City/[facility] Co de Phone Number [facility]
[address] [place] [address], [place] [phone] * CK (04/05/2025 12:15 PM EDT) Creatine Kinase 140 20 - 200 U/L 04/05/2025 1:31 PM EDT [facility] Blood Venipuncture / Unknown 04/05/2025 12:15 PM EDT 04/05/2025 1:03 PM EDT Carlton Mead MD LAB BLOOD ORDERABLES Final R esult Performing Organization Address City/[facility]/ZIP Co de Phone Number [facility]
[address] [place] [address], * (ABNORMAL) Heparin Anti-Xa (04/05/2025 12:15 PM EDT) [facility] Heparin Anti-Xa (UFH) 0.17(L) 0.30 - 0.70 IU/ml 04/05/2025 1:21 PM EDT [facility] Blood Venipuncture / Unknown 04/05/2025 12:15 PM EDT 04/05/2025 1:04 PM EDT Una Perla PharmD LAB BLOOD ORDERABLES Final R esult Performing Organization Address City/[facility] Co de Phone Number [facility]
[address] [place] [address], * (ABNORMAL) aPTT (04/05/2025 3:54 AM EDT) [facility] PTT 35.3(L) 60.0 - 90.0 seconds 04/05/2025 4:31 AM EDT [facility] Blood Venipuncture / Unknown 04/05/2025 3:54 AM EDT 04/05/2025 4:15 AM EDT Narrative [facility] - 04/05/2025 4:31 AM EDT PTT = The equivalent PTT values for the therapeutic range of heparin levels at 0.3 to 0.5 U/ml are 60 to 70 seconds. [employer] LAB BLOOD ORDERABLES Final R esult [facility]
[address] [place] [address], * Heparin Anti-Xa (04/05/2025 3:54 AM EDT) Pathologist [facility] Heparin Anti-Xa (UFH) 0.30 0.30 - 0.70 IU/ml 04/05/2025 4:32 AM EDT [facility] Blood Venipuncture / Unknown 04/05/2025 3:54 AM EDT 04/05/2025 4:15 AM EDT [employer] LAB BLOOD ORDERABLES Final R esult Performing Organization Address City/[facility]/ZIP Co de Phone Number [facility]
[address] [place] [address], * (ABNORMAL) CBC Auto Differential (04/05/2025 3:54 AM EDT) [facility] WBC 11.18(H) 3.40 - 10.80 10*3/mm3 04/05/2025 4:20 AM EDT [facility] RBC 5.00 4.14 - 5.80 10*6/mm3 04/05/2025 4:20 AM EDT [facility] Hemoglobin 13.9 13.0 - 17.7 g/dL 04/05/2025 4:20 AM EDT [facility] Hematocrit 42.4 37.5 - 51.0 % 04/05/2025 4:20 AM EDT [facility] MCV 84.8 79.0 - 97.0 fL 04/05/2025 4:20 AM EDT [facility] MCH 27.8 26.6 - 33.0 pg 04/05/2025 4:20 AM EDT [facility] MCHC 32.8 31.5 - 35.7 g/dL 04/05/2025 4:20 AM [facility] RDW 12.9 12.3 - 15.4 % 04/05/2025 4:20 AM [facility] RDW-SD 39.7 37.0 - 54.0 fl 04/05/2025 4:20 AM [facility] MPV 10.2 6.0 - 12.0 fL 04/05/2025 4:20 AM [facility] Platelets 160 140 - 450 10*3/mm3 04/05/2025 4:20 AM [facility] Neutrophil % 73.5 42.7 - 76.0 % 04/05/2025 4:20 AM [facility] Lymphocyte % 14.0(L) 19.6 - 45.3 % 04/05/2025 4:20 AM [facility] Monocyte % 11.0 5.0 - 12.0 % 04/05/2025 4:20 AM [facility] Eosinophil % 0.8 0.3 - 6.2 % 04/05/2025 4:20 AM [facility] Basophil % 0.3 0.0 - 1.5 % 04/05/2025 4:20 AM [facility] Immature Grans % 0.4 0.0 - 0.5 % 04/05/2025 4:20 AM [facility] Neutrophils, Absolute 8.23(H) 1.70 - 7.00 10*3/mm3 04/05/2025 4:20 AM [facility] Lymphocytes, Absolute 1.56 0.70 - 3.10 10*3/mm3 04/05/2025 4:20 AM [facility] Monocytes, Absolute 1.23(H) 0.10 - 0.90 10*3/mm3 04/05/2025 4:20 AM [facility] Eosinophils, Absolute 0.09 0.00 - 0.40 10*3/mm3 04/05/2025 4:20 AM [facility] Basophils, Absolute 0.03 0.00 - 0.20 10*3/mm3 04/05/2025 4:20 AM EDT [facility] Immature Grans, Absolute 0.04 0.00 - 0.05 10*3/mm3 04/05/2025 4:20 AM EDT [facility] nRBC 0.0 0.0 - 0.2 /100 WBC 04/05/2025 4:20 AM EDT [facility] Blood Venipuncture / Unknown 04/05/2025 3:54 AM EDT 04/05/2025 4:16 AM EDT Una Perla PharmD LAB BLOOD ORDERABLES Final R esult [facility]
[address] [place] [address], * (ABNORMAL) Basic Metabolic Panel (04/05/2025 3:54 AM EDT) Glucose 152(H) 65 - 99 mg/dL 04/05/2025 4:40 AM EDT [facility] BUN 17.3 6.0 - 20.0 mg/dL 04/05/2025 4:40 AM EDT [facility] Creatinine 0.92 0.76 - 1.27 mg/dL 04/05/2025 4:40 AM EDT [facility] Sodium 136 136 - 145 mmol/L 04/05/2025 4:40 AM EDT [facility] Potassium 3.9 3.5 - 5.2 mmol/L 04/05/2025 4:40 AM EDT [facility] Chloride 103 98 - 107 mmol/L 04/05/2025 4:40 AM EDT [facility] CO2 24.0 22.0 - 29.0 mmol/L 04/05/2025 4:40 AM EDT [facility] Calcium 7.8(L) 8.6 - 10.5 mg/dL 04/05/2025 4:40 AM EDT [facility] BUN/Creatinine Ratio 18.8 7.0 - 25.0 04/05/2025 4:40 AM EDT [facility] Anion Gap 9.0 5.0 - 15.0 mmol/L 04/05/2025 4:40 AM EDT [facility] eGFR 105.2 >60.0 mL/min/1.7 3 04/05/2025 4:40 AM EDT [facility] Blood Venipuncture / Unknown 04/05/2025 3:54 AM EDT 04/05/2025 4:15 AM EDT [facility] - 04/05/2025 4:40 AM EDT GFR [...] MD LAB BLOOD ORDERABLES Final Re sult [facility]
[address] [place] [address], * (ABNORMAL) aPTT (04/05/2025 12:18 AM EDT) PTT 33.6(L) 60.0 - 90.0 seconds 04/05/2025 12:53 AM EDT [facility] Blood Venipuncture / Unknown 04/05/2025 12:18 AM EDT 04/05/2025 12:37 AM EDT [facility] - 04/05/2025 12:53 AM EDT PTT = The equivalent PTT values for the therapeutic range of heparin levels at 0.3 to 0.5 U/ml are 60 to 70 seconds. [employer] LAB BLOOD ORDERABLES Final R esult [facility]
[address] [place] [address], [place] [phone] * (ABNORMAL) Protime-INR (04/05/2025 12:18 AM EDT) Protime 15.9(H) 12.2 - 15.3 Seconds 04/05/2025 12:53 AM EDT [facility] INR 1.19(H) 0.89 - 1.12 04/05/2025 12:53 AM EDT [facility] Blood Venipuncture / Unknown 04/05/2025 12:18 AM EDT 04/05/2025 12:37 AM EDT [employer] LAB BLOOD ORDERABLES Final R esult Performing Organization Address [facility] Co de Phone Number [facility]
[address] [place] [address], [place] [phone] * Heparin Anti-Xa (04/05/2025 12:18 AM EDT) Pathologist [facility] Heparin Anti-Xa (UFH) 0.39 0.30 - 0.70 IU/ml 04/05/2025 12:54 AM EDT [facility] Blood Venipuncture / Unknown 04/05/2025 12:18 AM EDT 04/05/2025 12:37 AM EDT [employer] LAB BLOOD ORDERABLES Final R esult Performing Organization Address City/[facility]/ZIP Co de Phone Number [facility]
[address] [place] [address], [place] [phone] * MRI Tibia Fibula Right With & [...] MD 04/04/2025 11:00 PM EDT Workstation ID: [id number] Narrative 04/04/2025 11:00 PM EDT MRI TIBIA [...] MD 04/04/2025 11:00 PM EDT Workstation ID: [id number] Leonora Shepherd MD IMG MRI ORDERABLES Final Resu lt * POC Creatinine (04/04/2025 2:49 PM EDT) Creatinine 1.10 0.60 - 1.30 mg/dL 04/07/2025 7:14 PM EDT [facility] Comment:Serial Number: [id number] 7Operator: [id number] Venous Blood 04/04/2025 2:49 PM EDT 04/07/2025 7:14 PM EDT Jason Álvarez DO POINT OF CARE TEST ORDERABLES Fi nal Result [facility]
[address] [place] [address], [place] [phone] * (ABNORMAL) CBC Auto Differential (04/04/2025 2:47 PM EDT) [facility] Signature WBC 12.72(H) 3.40 - 10.80 10*3/mm3 04/04/2025 2:56 PM EDT [facility] RBC 5.64 4.14 - 5.80 10*6/mm3 04/04/2025 2:56 PM EDT [facility] Hemoglobin 15.3 13.0 - 17.7 g/dL 04/04/2025 2:56 PM EDT [facility] Hematocrit 47.9 37.5 - 51.0 % 04/04/2025 2:56 PM EDT [facility] MCV 84.9 79.0 - 97.0 fL 04/04/2025 2:56 PM EDT [facility] MCH 27.1 26.6 - 33.0 pg 04/04/2025 2:56 PM EDT [facility] MCHC 31.9 31.5 - 35.7 g/dL 04/04/2025 2:56 PM EDT [facility] RDW 13.1 12.3 - 15.4 % 04/04/2025 2:56 PM EDT [facility] RDW-SD 40.3 37.0 - 54.0 fl 04/04/2025 2:56 PM EDT [facility] MPV 9.4 6.0 - 12.0 fL 04/04/2025 2:56 PM EDT [facility] Platelets 232 140 - 450 10*3/mm3 04/04/2025 2:56 PM EDT [facility] Neutrophil % 74.9 42.7 - 76.0 % 04/04/2025 2:56 PM EDT [facility] Lymphocyte % 13.1(L) 19.6 - 45.3 % 04/04/2025 2:56 PM EDT [facility] Monocyte % 11.2 5.0 - 12.0 % 04/04/2025 2:56 PM EDT [facility] Eosinophil % 0.4 0.3 - 6.2 % 04/04/2025 2:56 PM EDT [facility] Basophil % 0.2 0.0 - 1.5 % 04/04/2025 2:56 PM EDT [facility] Immature Grans % 0.2 0.0 - 0.5 % 04/04/2025 2:56 PM EDT [facility] Neutrophils, Absolute 9.52(H) 1.70 - 7.00 10*3/mm3 04/04/2025 2:56 PM EDT [facility] Lymphocytes, Absolute 1.66 0.70 - 3.10 10*3/mm3 04/04/2025 2:56 PM EDT [facility] Monocytes, Absolute 1.43(H) 0.10 - 0.90 10*3/mm3 04/04/2025 2:56 PM EDT [facility] Eosinophils, Absolute 0.05 0.00 - 0.40 10*3/mm3 04/04/2025 2:56 PM EDT [facility] Basophils, Absolute 0.03 0.00 - 0.20 10*3/mm3 04/04/2025 2:56 PM EDT [facility] Immature Grans, Absolute 0.03 0.00 - 0.05 10*3/mm3 04/04/2025 2:56 PM EDT [facility] nRBC 0.0 0.0 - 0.2 /100 WBC 04/04/2025 2:56 PM EDT [facility] Blood Venipuncture / Unknown 04/04/2025 2:47 PM EDT 04/04/2025 2:52 PM EDT us Mario Crowley DO LAB BLOOD ORDERABLES Fin al Result [facility]
[address] [place] [address], * (ABNORMAL) C-reactive Protein (04/04/2025 2:47 PM EDT) Pathologist [facility] C-Reactive Protein 8.57(H) 0.00 - 0.50 mg/dL 04/04/2025 3:26 PM EDT [facility] Blood Venipuncture / Unknown 04/04/2025 2:47 PM EDT 04/04/2025 2:52 PM EDT Mario Ortiz Keo LAB BLOOD ORDERABLES Fin al Result [facility]
[address] [place] [address], * (ABNORMAL) Sedimentation Rate (04/04/2025 2:47 PM EDT) [facility] Sed Rate 51(H) 0 - 15 mm/hr 04/04/2025 3:06 PM EDT [facility] Blood Venipuncture / Unknown 04/04/2025 2:47 PM EDT 04/04/2025 2:52 PM EDT Mario Ortiz Keo LAB BLOOD ORDERABLES Fin al Result Performing Organization Address City/[facility]/ZIP Co de Phone Number [facility]
[address] [place] [address], * Comprehensive Metabolic Panel (04/04/2025 2:47 PM EDT) [facility] Glucose 90 65 - 99 mg/dL 04/04/2025 3:26 PM EDT [facility] BUN 18.3 6.0 - 20.0 mg/dL 04/04/2025 3:26 PM EDT [facility] Creatinine 0.94 0.76 - 1.27 mg/dL 04/04/2025 3:26 PM EDT [facility] Sodium 136 136 - 145 mmol/L 04/04/2025 3:26 PM EDT [facility] Potassium 3.8 3.5 - 5.2 mmol/L 04/04/2025 3:26 PM EDT [facility] Chloride 100 98 - 107 mmol/L 04/04/2025 3:26 PM EDT [facility] CO2 25.3 22.0 - 29.0 mmol/L 04/04/2025 3:26 PM EDT [facility] Calcium 8.6 8.6 - 10.5 mg/dL 04/04/2025 3:26 PM EDT [facility] Total Protein 7.3 6.0 - 8.5 g/dL 04/04/2025 3:26 PM EDT [facility] Albumin 4.1 3.5 - 5.2 g/dL 04/04/2025 3:26 PM EDT [facility] ALT (SGPT) 26 1 - 41 U/L 04/04/2025 3:26 PM EDT [facility] AST (SGOT) 25 1 - 40 U/L 04/04/2025 3:26 PM EDT [facility] Alkaline Phosphatase 106 39 - 117 U/L 04/04/2025 3:26 PM T [facility] Total Bilirubin 1.0 0.0 - 1.2 mg/dL 04/04/2025 3:26 PM EDT [facility] Globulin 3.2 gm/dL 04/04/2025 3:26 PM T [facility] Comment:Calculated Result A/G Ratio 1.3 g/dL 04/04/2025 3:26 PM EDT [facility] BUN/Creatinine Ratio 19.5 7.0 - 25.0 04/04/2025 3:26 PM T [facility] Anion Gap 10.7 5.0 - 15.0 mmol/L 04/04/2025 3:26 PM T [facility] eGFR 102.5 >60.0 mL/min/1.7 3 04/04/2025 3:26 PM [facility] Blood Venipuncture / Unknown 04/04/2025 2:47 PM EDT 04/04/2025 2:52 PM EDT Narrative [facility] - 04/04/2025 3:26 PM [...] DO LAB BLOOD ORDERABLES Fin al Result [facility]
[address] [place] [address], documented in this encounter Visit Diagnoses Diagnosis [...] Salazar, KELL)1943 (Given - Provider: Anahy Marcelino, LINE TESTER)[id number] (Canceled Entry - Provider: Anahy Marcelino LINE TESTER - Comment: previously given) 0837 (Given - [...] prescribed for a lower pain scale. ([facility]) If given for pain, use the following [...] Continuous Medication Order 04/09/2025 04/10/2025 04/11/2025 heparin 67850 units/250 mL (100 units/mL) in 0.45 % [...] documented as of this encounter Care Teams Guest House Manager Relationship Specialty Start Date End Date Provider, [place] [address] PCP - General 05/09/23 documented as of this encounter
--- OUTSIDE RECORDS SUMMARY | 2025-04-08 15:34 | XMS_ITS | Encounter Summary ---
Author Organization [facility] Address [address] [place] [address] Care Team Providers Care Pharmacognosy Teacher Name Role Phone Provider, No Known Primary Care Provider Unavail able Reason for Visit * Auth/Cert Specialty Diagnoses / Procedures Referred By Bulmaro muniz Referred To Contact Diagnoses Right BKA infection Referral ID Status Reason Start Date Expiration Date Visits Re quested Visits Authorized [id number] 1 1 Encounter Details Date Type Department Care Team (Late st Contact Info) Description 04/08/2025 3:34 PM EDT Anesthesia Event [facility] OR [address] [place] [address] Ulises Hoffman MD [address] [place] [address] Jairo Brooks MD [address] [place] [address] Anesthesia Record Procedure Summary Procedure Name Responsible [...] drink = 0.6 oz pur e alcohol) [facility] Utilities Answer Date Recorded In the past 12 months has [employer], oil, or water [employer] threatened to shut off services in your [...] or training? Not on file Preferred Language Mexican 04/07/2025 Sex and Gender Information Value Date Recorded Sex Assigned at Not on file Legal Sex Male 7:30 PM EDT Gender Identity Not on file Sexual Orientation Not on file documented as of this encounter OR Notes * Anesthesia Postprocedure Evaluation - Stan Casillas CRNA - 04/08/2025 4:40 PM EDT Patient: Won Dennis Procedure Summary Date: 04/08/25 Room / Location: [facility] OR [address] [place] [address] [facility] [place] Anesthesia Start: 1533 Anesthesia Stop: [...] ROS Abdominal Substance History - negative use SCREEN PRINTING 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 HELPER negative nail artist ROS Other Anesthesia Plan ASA 3 general [...] documented as of this encounter Care Teams Pharmacognosy Teacher Relationship Specialty Start Date End Date Provider, [place] [address] PCP - General 05/09/23 documented as of this encounter
[2025-05-09] MEDS: SODIUM CHLORIDE 0.9% 10ML FLUSH SYRINGE 10 ML IV (08:15)
--- OUTSIDE RECORDS SUMMARY | 2025-05-09 08:16 | XMS_ITS | Clinical Summary ---
Author Organization [facility] Address [address] [facility] [address] [place] [address] Phone Care Team Providers Care Market Relationship Manager Name Role Phone Unavailable Unavailable Conditions or Problems No information available. Medications No information available. Medications Administered No information available. Allergies, Adverse Reactions, Alerts No information available. Results No information available. Plan of Care No information available. Procedures No information available. Vital Signs No information available. Immunizations No information available. Advance Directives No information available.
--- OUTSIDE RECORDS SUMMARY | 2025-05-09 08:16 | XMS_ITS | Patient Health Record ---
Author Organization [facility] Address [address] [facility] [address] [place] [id number] Care Team Providers Care Awning Hanger Supervisor Name Role Phone Zeeshan Salazar Primary [...] W/U Status Risk Notes Problem Essential hypertension (82977702) HTN [Hypertension] (401.9) Active confirmed appears resolved Problem Hypothyroidism (09410758) Hypothyroidism NOS (244.9) Active confirmed Problem Hyperlipidemia (69343437) Hyperlipidemia (272.4) Active confirmed Problem Constipation (22413963) Constipation, unspecified constipation type (K59.00) Active confirmed Problem History of pulmonary embolism on long-term anticoagulation therapy (72415796580602151 ) Hx pulmonary embolism (Z86.711) Active confirmed Problem Long-term current use of anticoagulant (645131203) Current use of watermelon inspector anticoagulation (Z79.01) Active confirmed Problem Adjustment disorder with anxious mood (95379439) Adjustment disorder with anxious mood (F43.22) Active confirmed Problem History of pulmonary embolus (096437047) History of pulmonary embolus (PE) (Z86.711) Active confirmed Problem Methicillin resistant Staphylococcus aureus infection (disorder) (721805211) Infection of wound due to methicillin resistant Staphylococcus aureus (MRSA) (A49.02) Active confirmed Problem Arthritis of knee (380624760) Arthritis of knee (M17.10) Active confirmed Problem Amputated below knee (709425915) 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
--- OUTSIDE RECORDS SUMMARY | 2025-05-09 08:19 | XMS_ITS | Encounter Summary ---
Author Organization Healthcare Address [address] [place] [address] Care Team Providers Care Membership Sales Representative Name Role Phone Unavailable Primary Care Provider Unavailabl e Encounter Details Date Type Department Care Team (Late st Contact Info) Description 05/17/2023 Lab Requisition [facility] Lab [address] [place] [address] Sushil Dean MD [address] [facility] [address] [place] [address] Encounter for general adult medical examination without [...] RDERABLES Final Result Performing Organization Address City/[facility] Co de Phone Number [facility] [address] [place] [address] * Bone Culture and Gram Stain (05/17/2023 [...] Final Result Performing Organization Address [facility] Co de Phone Number [facility] [address] [place] [address] documented in this encounter Visit Diagnoses Diagnosis Encounter for general adult medical examination without abnormal findings documented in this encounter
--- OUTSIDE RECORDS SUMMARY | 2025-05-09 08:19 | XMS_ITS | Encounter Summary ---
Author Organization Healthcare Address [address] [place] [address] Care Team Providers Care Film Critic Name Role Phone Unavailable Primary Care Provider Unavailabl e Encounter Details Date Type Department Care Team (Late st Contact Info) Description 10/19/2022 Lab Requisition [facility] [address] [place] [address] Sushil Dean MD [address] [place] [address] Encounter for general adult medical examination without [...] by MALDI tof mass spectrometry using the [employer] database and is for research use only. The organism value for this result has been updated. These results have been appended to the previously preliminary verified report. Bone Specimen from bone / Unknown 10/19/2022 5:17 PM EDT 10/19/2022 9:49 PM EDT Sushil Dean MD LAB MICROBIOLOGY - GENERAL O RDERABLES Final Result Performing Organization Address [facility] de Phone Number HEALTHCARE LAB [address] [place] [phone] * Bone Culture and Gram Stain (10/19/2022 5:17 PM EDT) Culture No growth at day 4 2022 8:14 AM EDT [facility]ARE LAB Gram Stain Result Few Polymorphonuclear leukocytes 10/23/2022 8:14 AM EDT [facility] LAB Gram Stain Result No organisms seen 10/23/2022 8:14 AM EDT [facility] Bone Specimen from bone / Unknown 10/19/2022 5:17 PM EDT 10/19/2022 9:49 PM EDT Sushil Dean MD LAB MICROBIOLOGY - GENERAL O RDERAADDI Final Result Performing Organization Address [facility] Phone Number HEALTHCARE LAB [address] [place] [address] documented in this encounter Visit Diagnoses Diagnosis Encounter for general adult medical examination without abnormal findings documented in this encounter
--- OUTSIDE RECORDS SUMMARY | 2025-05-09 08:19 | XMS_ITS | Clinical Summary ---
Author Organization [facility] Address [address] [place] [address] Care Team Providers Care No Bake Molder Name Role Phone Provider, No Known Primary [...] Taking at Discharge) Lactobacillus- Inulin ([facility] [email or web address] [facility]) capsule Take 200 mg by mouth [...] Anesthesia [place] [facility] [place] [place] [address] [place] [phone] Ulises Hoffman MD Wells, Jeremy B., MD 04/08/2025 2:45 PM EDT - 04/08/2025 4:04 PM EDT Surgery [facility] OR [address] [place] [address] Sushil Dean Jr., MD LEG DEBRIDEMENT AND IRRIGATION 04/07/2025 8:36 PM EDT Anesthesia Event [facility] OR [address] [place] [address] Luci Alonso DO 04/07/2025 6:00 PM EDT - 04/07/2025 6:52 PM EDT Surgery [facility] OR [address] [place] [address] Sushil Dean Jr., MD LEG DEBRIDEMENT, IRRIGATION 04/04/2025 4:10 PM EDT - 04/11/2025 1:58 PM EDT Hospital Encounter [facility] [address]G [address] [place] [address] Mario Crowley DO Anderson, Laurie, [...] 0.6 oz pur e alcohol) [facility] Utilities Answer Date Recorded In the past 12 months has [employer], gas, oil, or water [employer] threatened to shut off services in your [...] or training? Not on file Preferred Language Nigerian 04/07/2025 Sex and Gender Information Value Date [...] this topic Medical Devices Implanted Type Area Death Claim Clerk Device Identifier Shelf Expiration Date Model / Serial / Lot Dev Wnd/Cls Contrl Tiss Strata[employer] Spiral Pls Pds Ct1 0 22cm - [id number] Implanted:Qty: 1 on 04/08/2025 by Sushil Dean Jr., MD at [facility] Implant Right: Leg [employer] 12/07/2025 [id number] / / [id number] Procedures Procedure Name Priority [...] - 10.80 10*3/mm3 04/11/2025 4:02 AM EDT [facility] RBC 4.70 4.14 - 5.80 10*6/mm3 04/11/2025 4:02 AM EDT [facility] Hemoglobin 12.8(L) 13.0 - 17.7 g/dL 04/11/2025 4:02 AM EDT [facility] Hematocrit 40.5 37.5 - 51.0 % 04/11/2025 4:02 AM EDT [facility] MCV 86.2 79.0 - 97.0 fL 04/11/2025 4:02 AM EDT [facility] MCH 27.2 26.6 - 33.0 pg 04/11/2025 4:02 AM EDT [facility] MCHC 31.6 31.5 - 35.7 g/dL 04/11/2025 4:02 AM EDT [facility] RDW 12.9 12.3 - 15.4 % 04/11/2025 4:02 AM EDT [facility] RDW-SD 40.5 37.0 - 54.0 fl 04/11/2025 4:02 AM EDT [facility] MPV 9.2 6.0 - 12.0 fL 04/11/2025 4:02 AM EDT [facility] Platelets 267 140 - 450 10*3/mm3 04/11/2025 4:02 AM EDT [facility] Neutrophil % 59.5 42.7 - 76.0 % 04/11/2025 4:02 AM EDT [facility] Lymphocyte % 26.3 19.6 - 45.3 % 04/11/2025 4:02 AM EDT [facility] Monocyte % 9.3 5.0 - 12.0 % 04/11/2025 4:02 AM [facility] Eosinophil % 4.1 0.3 - 6.2 % 04/11/2025 4:02 AM EDT [facility] Basophil % 0.4 0.0 [...] MD LAB BLOOD ORDERABLES Fi nal Result [facility]
[address] [place] [address], * (ABNORMAL) Comprehensive Metabolic Panel (04/11/2025 3:40 AM EDT) Only the most recent of2 resultswithin the time period is included. Glucose 108(H) 65 - 99 mg/dL 04/11/2025 4:19 AM EDT [facility] BUN 12.5 6.0 - 20.0 mg/dL 04/11/2025 4:19 AM EDT [facility] Creatinine 0.68(L) 0.76 - 1.27 mg/dL 04/11/2025 4:19 AM EDT [facility] Sodium 140 136 - 145 mmol/L 04/11/2025 4:19 AM EDT [facility] Potassium 3.8 3.5 - 5.2 mmol/L 04/11/2025 4:19 AM EDT [facility] Chloride 105 98 - 107 mmol/L 04/11/2025 4:19 AM EDT [facility] CO2 28.2 22.0 - 29.0 mmol/L 04/11/2025 4:19 AM EDT [facility] Calcium 8.2(L) 8.6 - 10.5 mg/dL 04/11/2025 4:19 AM EDT [facility] Total Protein 6.1 6.0 - 8.5 g/dL 04/11/2025 4:19 AM EDT [facility] Albumin 3.1(L) 3.5 - 5.2 g/dL 04/11/2025 4:19 AM EDT [facility] ALT (SGPT) 52(H) 1 - 41 U/L 04/11/2025 4:19 AM EDT [facility] AST (SGOT) 40 1 - 40 U/L 04/11/2025 4:19 AM EDT [facility] Alkaline Phosphatase 99 39 - 117 U/L 04/11/2025 4:19 AM EDT [facility] Total Bilirubin 0.2 0.0 - 1.2 mg/dL 04/11/2025 4:19 AM EDT [facility] Globulin 3.0 gm/dL 04/11/2025 4:19 AM EDT [facility] Comment:Calculated Result A/G Ratio 1.0 g/dL 04/11/2025 4:19 AM EDT [facility] BUN/Creatinine Ratio 18.4 7.0 - 25.0 04/11/2025 4:19 AM EDT [facility] Anion Gap 6.8 5.0 - 15.0 mmol/L 04/11/2025 4:19 AM EDT [facility] eGFR 117.5 >60.0 mL/min/1.7 3 04/11/2025 4:19 AM EDT [facility] Blood Venipuncture / Unknown 04/11/2025 3:40 AM EDT 04/11/2025 3:56 AM EDT [facility] - 04/11/2025 4:19 AM [...] race as a factor us Rosario Hill WORLD RENOWNED [employer]F AND RESTAURANT OWNER LAB BLOOD ORDERABLES Final Result [facility]
[address] [id number], * Heparin Anti-Xa (04/10/2025 3:46 AM EDT) Only the most recent of13 resultswithin the time period is included. Heparin Anti-Xa (UFH) 0.35 0.30 - 0.70 IU/ml 04/10/2025 4:23 AM EDT [facility] Blood Venipuncture / Unknown 04/10/2025 3:46 AM EDT 04/10/2025 3:53 AM EDT Larisa Hamilton [facility] LAB BLOOD ORDERABLES Final R esult [facility]
[address] [place] [address], * (ABNORMAL) Basic Metabolic Panel (04/10/2025 3:46 AM EDT) Only the most recent of6 resultswithin the time period is included. [facility] Glucose 125(H) 65 - 99 mg/dL 04/10/2025 4:20 AM EDT [facility] BUN 15.9 6.0 - 20.0 mg/dL 04/10/2025 4:20 AM EDT [facility] Creatinine 0.77 0.76 - 1.27 mg/dL 04/10/2025 4:20 AM EDT [facility] Sodium 137 136 - 145 mmol/L 04/10/2025 4:20 AM EDT [facility] Potassium 3.9 3.5 - 5.2 mmol/L 04/10/2025 4:20 AM EDT [facility] Chloride 102 98 - 107 mmol/L 04/10/2025 4:20 AM EDT [facility] CO2 26.9 22.0 - 29.0 mmol/L 04/10/2025 4:20 AM EDT [facility] Calcium 7.9(L) 8.6 - 10.5 mg/dL 04/10/2025 4:20 AM EDT [facility] BUN/Creatinine Ratio 20.6 7.0 - 25.0 04/10/2025 4:20 AM EDT [facility] Anion Gap 8.1 5.0 - 15.0 mmol/L 04/10/2025 4:20 AM EDT [facility] eGFR 113.2 >60.0 mL/min/1.7 3 04/10/2025 4:20 AM EDT [facility] Blood Venipuncture / Unknown 04/10/2025 3:46 AM EDT 04/10/2025 3:52 AM EDT Narrative [facility] - 04/10/2025 4:20 AM [...] DO LAB BLOOD ORDERABLES Final Resul t [facility]
[address] [place] [address], * Wound Culture - Swab, Leg, Right (04/08/2025 3:40 PM EDT) Only the most recent of3 resultswithin the time period is included. Wound Culture No growth at 3 days ALIZA 04/11/2025 10:40 AM EDT [facility] Gram Stain Few (2+) WBCs seen 04/11/2025 10:40 AM EDT [facility] Gram Stain No organisms seen 04/11/2025 10:40 AM EDT [facility] Swab Structure of right lower limb / Unknown 04/08/2025 3:40 PM EDT 04/08/2025 8:05 PM EDT Sushil Dean Jr., MD MICROBIOLOGY - GENERAL ORDERABLES Final Result Performing Organization Address City/[facility]/ZIP Co de Phone Number [facility]
[address] [place] [address], [facility]
[address] [place] [address], [place] [phone] * Anaerobic Culture - Swab, Leg, Right [...] ORDERABLES Final Result Performing Organization Address [facility] Co de Phone Number [facility]
[address] [place] [address], * Scan Slide (04/08/2025 8:41 AM EDT) RBC Morphology Normal Normal 04/08/2025 11:02 AM EDT [facility] WBC Morphology Normal Normal 04/08/2025 11:02 AM EDT [facility] Platelet Estimate Adequate Normal 04/08/2025 11:02 AM EDT [facility] Clumped Platelets Present None Seen 04/08/2025 11:02 AM EDT [facility] Blood Venipuncture / Unknown 04/08/2025 8:41 AM EDT 04/08/2025 9:10 AM EDT Una Perla PharmD LAB BLOOD ORDERABLES Final R esult Performing Organization Address City/[facility]/ZIP Co de Phone Number [facility]
[address] [place] [address], [place] [phone] * FL C Arm During Surgery (04/07/2025 [...] (1+) WBCs seen 04/11/2025 10:36 AM EDT [facility] Gram Stain No organisms seen 04/11/2025 10:36 AM EDT [facility] Tissue Structure of right lower limb / Unknown 04/07/2025 9:13 PM EDT 04/08/2025 4:54 AM EDT us Sushil Dean Jr., MD MICROBIOLOGY - GENERAL ORDERABLES Final Result [facility]
[address] [place] [address], [facility]
[address] [place] [address], * BH AN ETT AIRWAY (04/07/2025 8:44 [...] [place] 04/07/2025 9:58 AM EDT Workstation ID: [id number] Narrative 04/07/2025 9:58 AM EDT MRI TIBIA [...] [place] 04/07/2025 9:58 AM EDT Workstation ID: [id number] Sushil Dean Jr., MD IMG MRI ORDERABLES Mary Beth l Result * Potassium (04/06/2025 7:16 PM EDT) Potassium 4.0 3.5 - 5.2 mmol/L 04/06/2025 7:53 PM EDT [facility] Blood Venipuncture / Unknown 04/06/2025 7:16 PM EDT 04/06/2025 7:35 PM EDT Jason Álvarez DO LAB BLOOD ORDERABLES Final Resul t Performing Organization Address City/[facility]/ZIP Co de Phone Number [facility]
[address] [place] [address], * CK (04/05/2025 12:15 PM EDT) Creatine Kinase 140 20 - 200 U/L 04/05/2025 1:31 PM EDT [facility] Blood Venipuncture / Unknown 04/05/2025 12:15 PM EDT 04/05/2025 1:03 PM EDT Carlton Mead MD LAB BLOOD ORDERABLES Final R esult Performing Organization Address City/[facility]/ZIP Co de Phone Number [facility]
[address] [place] [address], * (ABNORMAL) aPTT (04/05/2025 3:54 AM EDT) Only the most recent of2 resultswithin the time period is included. PTT 35.3(L) 60.0 - 90.0 seconds 04/05/2025 4:31 AM EDT [facility] Blood Venipuncture / Unknown 04/05/2025 3:54 AM EDT 04/05/2025 4:15 AM EDT Narrative [facility] - 04/05/2025 4:31 AM EDT PTT = The equivalent PTT values for the therapeutic range of heparin levels at 0.3 to 0.5 U/ml are 60 to 70 seconds. Germin8D LAB BLOOD ORDERABLES Final R esult Performing Organization Address City/[facility]/ZIP Co de Phone Number [facility]
[address] [place] [address], * (ABNORMAL) Protime-INR (04/05/2025 12:18 AM EDT) Pathologist [facility] Protime 15.9(H) 12.2 - 15.3 Seconds 04/05/2025 12:53 AM EDT [facility] INR 1.19(H) 0.89 - 1.12 04/05/2025 12:53 AM EDT [facility] Blood Venipuncture / Unknown 04/05/2025 12:18 AM EDT 04/05/2025 12:37 AM EDT [employer] PharmD LAB BLOOD ORDERABLES Final R esult Performing Organization Address City/[facility]/ZIP Co de Phone Number [facility]
[address] [place] [address], * POC Creatinine (04/04/2025 2:49 PM EDT) Pathologist [facility] Creatinine 1.10 0.60 - 1.30 mg/dL 04/07/2025 7:14 PM EDT [facility] Comment:Serial Number: [id number] [id number] Venous Blood 04/04/2025 2:49 PM EDT 04/07/2025 7:14 PM EDT Jason Álvarez DO POINT OF CARE TEST ORDERABLES Fi nal Result Performing Organization Address [facility] Co de Phone Number [facility]
[address] [place] [address], * (ABNORMAL) Sedimentation Rate (04/04/2025 2:47 PM EDT) Sed Rate 51(H) 0 - 15 mm/hr 04/04/2025 3:06 PM EDT [facility] Blood Venipuncture / Unknown 04/04/2025 2:47 PM EDT 04/04/2025 2:52 PM EDT Mario Crowley LAB BLOOD ORDERABLES Fin al Result Performing Organization Address [facility] de Phone Number [facility]
[address] [place] [address], * (ABNORMAL) C-reactive Protein (04/04/2025 2:47 PM EDT) C-Reactive Protein 8.57(H) 0.00 - 0.50 mg/dL 04/04/2025 3:26 PM EDT [facility] Blood Venipuncture / Unknown 04/04/2025 2:47 PM EDT 04/04/2025 2:52 PM EDT Mario Crowley DO LAB BLOOD ORDERABLES Fin al Result Performing Organization Address [facility] Co de Phone Number [facility]
[address] [place] [address], from Last 3 Months Additional Health Concerns [...] Of Support Discussed With: Patient Care Teams No Bake Molder Relationship Specialty Start Date End Date Provider, No Known [facility] [place] [address] PCP - General 05/09/23
--- OUTSIDE RECORDS SUMMARY | 2025-05-09 08:19 | XMS_ITS | Encounter Summary ---
Author Organization Healthcare Address [address] [place] [address] Care Team Providers Care Wooden Furniture Polisher Name Role Phone Unavailable Primary Care Provider Unavailabl e Encounter Details Date Type Department Care Team (Late st Contact Info) Description 10/01/2022 Lab Requisition [facility] [address] [place] [address] Sushil Dean MD [address] [facility] [place] [address] Encounter for general adult medical examination without [...] has been identified using the FDA Approved [employer] [place] System The organism value for this [...] 10/04/2022 2:17 PM EDT Refer to culture [id number] FOR SUSCEPTIBILITIES ON NEELIMA ALBICANS us Sushil Dean MD LAB MICROBIOLOGY - GENERAL O RDERABLES Final Result [facility] [address] [place] [address] documented in this encounter Visit Diagnoses Diagnosis Encounter for general adult medical examination without abnormal findings documented in this encounter
--- OUTSIDE RECORDS SUMMARY | 2025-05-09 08:19 | XMS_ITS | Encounter Summary ---
Author Organization [facility] Address [address] [place] [address] Care Team Providers Care Distributor Sales Manager Name Role Phone Provider, No Known [...] 2:25 PM EDT Cherri Grimm RN * [place] Suicide Severity Rating Scale (Screener/Recent Self-Report) Question [...] documented as of this encounter Care Teams Distributor Sales Manager Relationship Specialty Start Date End Date Provider, No Known [facility] [place] [address] PCP - General 05/09/23 documented as of this encounter
--- OUTSIDE RECORDS SUMMARY | 2025-05-09 08:19 | XMS_ITS | Encounter Summary ---
Author Organization Healthcare Address [address] [place] [address] Care Team Providers Care Case Specialist Name Role Phone Unavailable Primary Care Provider Unavailabl e Encounter Details Date Type Department Care Team (Late st Contact Info) Description 07/20/2022 Lab Requisition [facility] [address] [place] [address] Sushil Dean MD [address] [place] [address] Encounter for general adult medical examination without [...] at day 4 07/27/2022 11:32 AM EST [facility] Bone Specimen from bone / Unknown 07/20/2022 1:36 PM EST 07/20/2022 5:52 PM EST us Sushil Dean MD LAB MICROBIOLOGY - GENERAL O RDERABLES Final Result Performing Organization Address City/[facility] Co de Phone Number HEALTHCARE LAB [address] [place] [address] * Bone Culture and Gram Stain (07/20/2022 1:36 PM EST) Culture No growth at day 4 2022 9:16 AM EST [facility] Gram Stain Result Rare Polymorphonuclear leukocytes 07/24/2022 9:16 AM EST [facility] Gram Stain Result No organisms seen 07/24/2022 9:16 AM EST [facility] Bone Specimen from bone / Unknown 07/20/2022 1:36 PM EST 07/20/2022 5:52 PM EST us Sushil Dean MD LAB MICROBIOLOGY - GENERAL O RDERABLES Final Result Performing Organization Address City/[facility] Co de Phone Number HEALTHCARE LAB [address] [place] [address] documented in this encounter Visit Diagnoses Diagnosis Encounter for general adult medical examination without abnormal findings documented in this encounter
--- OUTSIDE RECORDS SUMMARY | 2025-05-09 08:19 | XMS_ITS | Encounter Summary ---
Author Organization Healthcare Address [address] [place] [address] Care Team Providers Care Payer Specialist Name Role Phone Unavailable Primary Care Provider Unavailabl e Encounter Details Date Type Department Care Team (Late st Contact Info) Description 08/12/2022 Lab Requisition [facility] [address] [place] [address] Sushil Dean MD [address] [place] [address] Encounter for general adult medical examination without [...] has been identified using the FDA Approved [employer] CA System The organism value for this [...] O ERIC Final Result Performing Organization Address City/[facility] de Phone Number HEALTHCARE LAB [address] [place] [address] * Bone Culture and Gram Stain (08/12/2022 [...] O RDERABLES Final Result Performing Organization Address City/[facility] de Phone Number [facility] [address] [place] [address] documented in this encounter Visit Diagnoses Diagnosis Encounter for general adult medical examination without abnormal findings documented in this encounter
--- OUTSIDE RECORDS SUMMARY | 2025-05-09 08:19 | XMS_ITS | Encounter Summary ---
Author Organization Healthcare Address [address] [place] [address] Care Team Providers Care Emission Specialist Name Role Phone Unavailable Primary Care Provider Unavailabl e Encounter Details Date Type Department Care Team (Late st Contact Info) Description 07/20/2022 Lab Requisition [facility] [address] [place] [address] Sushil Dean MD [address] [place] [address] Encounter for general adult medical examination without [...]
--- OUTSIDE RECORDS SUMMARY | 2025-05-09 08:19 | XMS_ITS | Clinical Summary ---
Author Organization Healthcare Address [address] [place] [address] Care Team Providers Care Glass Cleaning Machine Tender Name Role Phone Unavailable Primary [...]
--- OUTSIDE RECORDS SUMMARY | 2025-05-09 08:19 | XMS_ITS | Encounter Summary ---
Author Organization [facility] Address [address] [place] [address] Care Team Providers Care Mold Burner Name Role Phone Unavailable Primary Care Provider Unavailabl e Encounter Details Date Type Department Care Team (Late st Contact Info) Description 10/03/2022 Lab Requisition [facility] [address] [place] [address] Dalila Cox MD [address] [place], [place] [id number] Encounter for general adult medical examination without [...] Culture Neelima albicans(A) 10/05/2022 11:58 AM EDT [facility] Comment: This result was determined by MALDI tof Mass spectrometry. This assay was developed and its performance characteristics determined by [facility] as appropriate for clinical purposes. [...] Edited Result - Final [facility]ARE LAB [address] [place] [address] documented in this encounter Visit Diagnoses Diagnosis Encounter for general adult medical examination without abnormal findings documented in this encounter
--- OUTSIDE RECORDS SUMMARY | 2025-05-09 08:19 | XMS_ITS | Encounter Summary ---
Author Organization Healthcare Address [address] [place] [address] Care Team Providers Care Director Museum Or Zoo Name Role Phone Unavailable Primary Care Provider Unavailabl e Encounter Details Date Type Department Care Team (Late st Contact Info) Description 05/13/2023 Lab Requisition [facility] [address] [place] [address] Sushil Dean MD [address] [facility] [place] [address] Encounter for general adult medical examination without [...] O RDERABLES Final Result Performing Organization Address [facility] Co de Phone Number [facility] [address] [place] [address] * Anaerobic Culture (05/13/2023 9:17 AM EDT) Culture No growth at day 4 05/20/2023 10:35 AM EST [facility] Bone 05/13/2023 9:17 AM EDT 05/13/2023 1:25 PM EDT us Sushil Dean MD LAB MICROBIOLOGY - GENERAL O RDERABLES Final Result Performing Organization Address [facility] de Phone Number [facility] [address] [place] [address] * Bone Culture and Gram Stain (05/13/2023 [...] O RDERABLES Final Result Performing Organization Address [facility] de Phone Number [facility] [address] [place] [address] documented in this encounter Visit Diagnoses Diagnosis Encounter for general adult medical examination without abnormal findings documented in this encounter
[2025-05-09] MEDS: DAPTOmycin 1,000 MG in 0.9 % SODIUM CHLORIDE 50 ML 100 MG IV (08:26)
[2025-05-09 08:40] VITALS: BP 136/74; PULSE 70; RESP 18; TEMP 36.4; O2SAT 99
[2025-05-09 09:10] VITALS: BP 106/59; PULSE 69
== END 2025-05-09 23:59 | disposition home or self-care (01) ==
LOC: INF 08:14
PROVIDERS: PCP Nurse Practitioner Family; Visit Provider Internal Medicine Infectious Disease
DX: M86.9 Osteomyelitis, unspecified (principal); B95.62 Methicillin resistant Staphylococcus aureus infection as the cause of diseases classified elsewhere
CPT/HCPCS: 96365; J0878

== ENCOUNTER 2025-05-10 08:03 | Outpatient (CLI) | payer MEDICARE, SELFPAY ==
--- OUTSIDE RECORDS SUMMARY | 2023-12-12 05:00 | XMS_ITS ---
Author Organization Ayaka Address 1210 [facility] 36 [facility] 2C [place] [phone] Care Team Providers Care Lock Maintenance Supervisor Name Role Phone Zeeshan Salazar Primary Care Provider Macario Burkett [phone] REASON FOR VISIT 6 Month Check Up Encounters Encounter Location Date Provider Diagnosis [place] 1210 [facility] [address] [place] [phone] 12/12/2023 Macario Burkett Plan Of Treatment No Information Progress Notes * Won MEDRANO ZeeshanDOB: [birth year] (44 yo M)Acc No.[id number]:12/12/2023 Progress Notes Patient: Won SPANN Provider: Colleen Burkett M.D. :1980 A ge:43 Y S ex:Male Date:12/12/2023 Address:[address] [place] [address] [id number] Pcp:Zeeshan Salazar Subjective: * Chief Complaints: * 1 . 6 Month Check Up. * Medical History: Objective: * Vitals: Assessment: Plan: * Treatment: * Images: Billing Information: * Visit Code: * Procedure Codes: * Electronic signature of Micaela Burkett MD on 05/10/2025 at 08:06 AM EDT Sign off status: Pending * Provider: Colleen Burkett M.D. Date: 12/12/2023 Generated for Nany jorgensen/Elaine/Pro on: 07/10/2024 08:06 AM EDT
--- OUTSIDE RECORDS SUMMARY | 2025-04-04 16:10 | XMS_ITS | Encounter Summary ---
Author Organization [facility] Address [address] [place] [address] Care Team Providers Care Stunner And Shackler Name Role Phone Provider, No Known Primary Care Provider Unavail able Reason for Visit * Reason Comments Leg Swelling * Auth/Cert Specialty Diagnoses / Procedures Referred By Contlevy t Referred To Contact Diagnoses Right BKA infection Referral ID Status Reason Start Date Expiration Date Visits Re quested Visits Authorized [id number] 1 1 Encounter Details Date Type Department Care Team (Late st Contact Info) Description 04/04/2025 4:10 PM EDT - 04/11/2025 1:58 PM EDT Hospital Encounter [address] [place] [address] Mario Crowley, [address] [place] [address] Leonora Shepherd MD [address] [address] Jason Álvarez DO [address] [address] Jadyn Richardson DO [address] [address] Cellulitis of right lower extremity (Primary Dx); Below-knee amputation of right lower extremity, initial encounter; Right BKA infection Discharge Disposition: Home or Self Care Social History Tobacco Use Types Packs/Day Years Used Date Smoking Tobacco: Never Smokeless Tobacco: Never Tobacco Cessation:Counseling Given: Not Answered Alcohol Use Standard Drinks/Week Comments Not Currently 0 (1 standard drink = 0.6 oz pur e alcohol) [facility] Utilities Answer Date Recorded In the past 12 months has th e [employer], gas, oil, or water company threatened to [...] or training? Not on file Preferred Language Montenegrin 04/07/2025 Sex and Gender Information Value Date [...] 2:25 PM EDT Cherri Grimm RN * [place] Suicide Severity Rating Scale (Screener/Recent Self-Report) Question [...] note were not included. [facility] Medicine Services DISCHARGE SUMMARY Patient Name: Won [...] Date/Time Wound Culture - Swab, Leg, Right [[id number]] (Abnormal) (Susceptibility) Collected: 04/07/252106 Lab Status: Final [...] Units Date/Time FL C Arm During Surgery [[id number]] Resulted: 04/07/252137 Updated: 04/07/252137 Narrative: This procedure was auto-finalized with no dictation required. MRI Tibia Fibula Right With & Without Contrast [[id number]] Collected: 04/07/25 0938 Updated: 04/07/25 1001 Narrative: [...] Buenrostro 04/07/2025 9:58 AM EDT Workstation ID: [id number] MRI Tibia Fibula Right With & Without Contrast [[id number]] Collected: 04/04/252256 Updated: 04/04/252302 Narrative: MRI TIBIA [...] represent a small area of phlegmonous change ([id number] image 10) measuring approximately 1.6 cm which [...] MD 04/04/2025 11:00 PM EDT Workstation ID: [id number] Pending Labs Order Current Status Fungus Culture [...] FLOMAX 1 capsule, Nightly Stop These Medications [facility] Digestive [facility] capsule doxycycline 100 MG tablet Commonly [...] Male) Date of 1980 Social Security Number [id number] [place] [address] Alevism Unknown Marital Status Unknown Admission Date 04/04/2025 Admission Type Emergency Admitting Provider Jadyn Richardson DO Attending Provider Jadyn Richardson DO Department, Room/Bed [address], S565/1 Discharge Date Discharge Disposition Discharge [...] Group [place] [id number] Payor Plan Address Payor Plan Phone Number Payor Plan Fax Number Effective Dates [employer] [address] [address] 08/10/2023 - None Entered [place] [address] Subscriber Name Subscriber Date Member ID WON DENNIS 1980 [id number] Emergency Contacts Business Solutions Consultant (Rel.) Home Phone Work Phone Mobile Phone Avril Dennis (Spouse) -- -- [phone] LewRobert (Relative) -- -- [phone] [place] [facility] [address] Patient: ROOM: [facility] Won Dennis [address] [facility] [address] : 1980 SSN: [id number] Sex: M PCP: Provider, No Known Emergency Contact Information Name Relation Home Work Mobile Avril Dennis Spouse [phone] Other Contacts Name Relation Home Work Mobile Robert Hackett Relative [phone] INSURANCE PAYOR PLAN GROUP # SUBSCRIBER ID Primary: Secondary: MEDICARE [employer] MEDICAID [place] [id number] Admitting Diagnosis: 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] Order Date: Apr 09, 2025 Case Management Branch Retail Executive Consult (Order ID: [id number]) Diagnosis: Priority: Routine Expected Date: Expiration Date: Interval: Once Count: Comments: Outpatient orders: 1. Outpatient intravenous antibiotic therapy: Daptomycin 800 mg IV daily [facility] 2. Home health to perform [...] INFECTIOUS DISEASE Progress Note Won Dennis 1980 [id number] Date of Consult: 04/10/2025 Admission Date: 04/04/2025 [...] which prompted him to seek treatment at [facility]. He is known to Dr. [...] wound 05/09/25. HDS, on Heparin gtt. Currently [facility] has been asked to manage the antimicrobials [...] Jr., MD, 20 mg at 04/09/25906 heparin 66766 units/250 mL (100 units/mL) in 0.45 % [...] Units Date/Time FL C Arm During Surgery [[id number]] Resulted: 04/07/252137 Updated: 04/07/252137 Narrative: This procedure was auto-finalized with no dictation required. MRI Tibia Fibula Right With & Without Contrast [[id number]] Collected: 04/07/25 0938 Updated: 04/07/25 1001 Narrative: [...] Chitra 04/07/2025 9:58 AM EDT Workstation ID: [id number] Impression: Recurrent Right BKA stump abscess/cellulitis- this [...] discussed his disposition with the pharmacist at [facility] today. I will sign off Outpatient orders: 1. Outpatient intravenous antibiotic therapy: Daptomycin 800 mg IV daily to be supplied by [facility] 2. Home health to [...] Expand All Collapse All [facility] Medicine Services PROGRESS NOTE Patient Name: Won [...] Date/Time Wound Culture - Swab, Leg, Right [[id number]] (Abnormal) (Susceptibility) Collected: 04/07/252106 Lab Status: Final [...] Row Name 04/06/25 1143 Sit-Stand Transfer Sit-Stand Cataño (Transfers) modified independence -LM Comment, (Sit-Stand Transfer) Pt stood from recliner. Not holding onto walker, pt able to pull his pants up while balancing on his one leg. -LM Row Name 04/06/25 1143 Gait/Stairs (Locomotion) Cataño Level (Gait) modified independence -LM Distance in [...] Nurse Physical Therapy Education Title: PT OT CATEGORY CONSULTANT Therapies (Done) Topic: Physical Therapy (Done) Point: [...] Description Service Date Service Provider Modifiers Qty [id number] PT EVAL LOW COMPLEXITY 3 04/06/2025 Susan [...] mg Daily 04/05/2025 -- Route: Oral heparin 80280 units/250 mL (100 units/mL) in 0.45 % [...] -- Admin Instructions: Open Order & Select [facility] Electrolyte Replacement Protocol Algorithm to View Details [...] [facility] [address], [address] [facility], [address] Please schedule at [phone] VONDA Garcia 04/11/25 08:32 EDT Cosigned by Sushil Dean Jr., MD at 04/19/2025 10:33 AM EDT Associated attestation - Sushil Dean Jr., MD - 04/19/2025 10:33 AM EDT I have reviewed this documentation and agree. * Rosario Hill APRN - 04/10/2025 1:24 PM EDT Images from the original note were not included. [facility] Medicine Services PROGRESS NOTE Patient Name: Won [...] Date/Time Wound Culture - Swab, Leg, Right [[id number]] (Abnormal) (Susceptibility) Collected: 04/07/252106 Lab Status: Final [...] mg Daily 04/05/2025 -- Route: Oral heparin 05253 units/250 mL (100 units/mL) in 0.45 % [...] -- Admin Instructions: Open Order & Select [facility] Electrolyte Replacement Protocol Algorithm to View Details [...] -- Admin Instructions: Open Order & Select [facility] Electrolyte Replacement Protocol Algorithm to View Details [...] -- Admin Instructions: Open Order & Select [facility] Electrolyte Replacement Protocol Algorithm to View Details [...] [facility] [address], [address] [facility], [address] Please schedule at [phone] VONDA Garcia 04/10/25 09:01 EDT Cosigned by Sushil Dean Jr., MD at 04/19/2025 10:33 AM EDT Associated attestation - Sushil Dean Jr., MD - 04/19/2025 10:33 AM EDT I have reviewed this documentation and agree. * Carlton Mead MD - 04/10/2025 7:38 AM EDT Images from the original note were not included. INFECTIOUS DISEASE Progress Note Won Dennis 1980 [id number] Date of Consult: 04/10/2025 Admission Date: 04/04/2025 [...] which prompted him to seek treatment at [facility]. He is known to Dr. [...] wound 05/09/25. HDS, on Heparin gtt. Currently [facility] has been asked to manage the antimicrobials [...] Jr., MD, 20 mg at 04/09/25906 heparin 50633 units/250 mL (100 units/mL) in 0.45 % [...] vancomycin 2750 mg/500 mL 0.9% NS IVPB ([facility]) Ordering Provider: Mario Crowley, DO 20 mg/kg [...] Units Date/Time FL C Arm During Surgery [[id number]] Resulted: 04/07/252137 Updated: 04/07/252137 Narrative: This procedure was auto-finalized with no dictation required. MRI Tibia Fibula Right With & Without Contrast [[id number]] Collected: 04/07/25 0938 Updated: 04/07/25 1001 Narrative: [...] Buenrostro 04/07/2025 9:58 AM EDT Workstation ID: [id number] Impression: Recurrent Right BKA stump abscess/cellulitis- this [...] discussed his disposition with the pharmacist at [facility] today. I will sign off Outpatient orders: 1. Outpatient intravenous antibiotic therapy: Daptomycin 800 mg IV daily to be supplied by [facility] 2. Home health to [...] MD 04/10/2025 07:38 EDT * Yaya Hamiltonn, [facility] - 04/10/2025 7:17 AM EDT [...] note were not included. [facility] Medicine Services PROGRESS NOTE Patient Name: Won [...] Date/Time Wound Culture - Swab, Leg, Right [[id number]] (Abnormal) Collected: 04/07/252106 Lab Status: Preliminary result [...] Jason DO Preeti 04/09/25 * Larisa Hamilton [facility] - 04/09/2025 11:36 AM EDT [...] mg Daily 04/05/2025 -- Route: Oral heparin 54206 units/250 mL (100 units/mL) in 0.45 % [...] -- Admin Instructions: Open Order & Select [facility] Electrolyte Replacement Protocol Algorithm to View Details [...] -- Admin Instructions: Open Order & Select [facility] Electrolyte Replacement Protocol Algorithm to View Details [...] -- Admin Instructions: Open Order & Select [facility] Electrolyte Replacement Protocol Algorithm to View Details [...] [facility] [address], [address] [facility], [address] Please schedule at [phone] VONDA Garcia 04/09/25 09:18 EDT Cosigned by Sushil Dean Jr., MD at 04/19/2025 10:33 AM EDT Associated attestation - Sushil Dean Jr., MD - 04/19/2025 10:33 AM EDT I have reviewed this documentation and agree. * Carlton Mead MD - 04/09/2025 8:25 AM EDT Images from the original note were not included. INFECTIOUS DISEASE Progress Note Won Dennis 1980 [id number] Date of Consult: 04/09/2025 Admission Date: 04/04/2025 [...] which prompted him to seek treatment at [facility]. He is known to Dr. [...] wound 05/09/25. HDS, on Heparin gtt. Currently [facility] has been asked to manage the antimicrobials [...] IRRIGATION; Surgeon: Sushil Dean Jr., MD; Location: [facility] OR; Service: Orthopedics; Laterality: Right; PLACEMENT OF WOUND VAC Right 04/07/2025 Procedure: WOUND VACUUM ASSISTED CLOSURE; Surgeon: Sushil Dean Jr., MD; Location: [facility] OR; Service: Orthopedics; Laterality: Right; History [...] MD, 20 mg at 04/08/25 0800 heparin 46097 units/250 mL (100 units/mL) in 0.45 % [...] Units Date/Time FL C Arm During Surgery [[id number]] Resulted: 04/07/252137 Updated: 04/07/252137 Narrative: This procedure was auto-finalized with no dictation required. MRI Tibia Fibula Right With & Without Contrast [[id number]] Collected: 04/07/2538 Updated: 04/07/25 1001 Narrative: MRI [...] Buenrostro 04/07/2025 9:58 AM EDT Workstation ID: [id number] Impression: Recurrent Right BKA stump abscess/cellulitis- this [...] mg IV daily to be supplied by [facility] 2. Home health to perform [...] note were not included. [facility] Medicine Services PROGRESS NOTE Patient Name: Won [...] Buenrostro 04/07/2025 9:58 AM EDT Workstation ID: [id number] I have personally reviewed the therapy plans: [...] Jason Álvarez DO 04/08/25 * Larisa Hamilton [facility] - 04/08/2025 11:48 AM EDT [...] -- Admin Instructions: Open Order & Select [facility] Electrolyte Replacement Protocol Algorithm to View Details [...] mg Daily 04/05/2025 -- Route: Oral heparin 34839 units/250 mL (100 units/mL) in 0.45 % [...] -- Admin Instructions: Open Order & Select [facility] Electrolyte Replacement Protocol Algorithm to View Details [...] -- Admin Instructions: Open Order & Select [facility] Electrolyte Replacement Protocol Algorithm to View Details [...] -- Admin Instructions: Open Order & Select [facility] Electrolyte Replacement Protocol Algorithm to View Details [...] INFECTIOUS DISEASE Progress Note Won Dennis 1980 [id number] Date of Consult: 04/08/2025 Admission Date: 04/04/2025 [...] which prompted him to seek treatment at [facility]. He is known to Dr. [...] wound 05/09/25. HDS, on Heparin gtt. Currently [facility] has been asked to manage the antimicrobials [...] IRRIGATION; Surgeon: Sushil Dean Jr., MD; Location: [facility] OR; Service: Orthopedics; Laterality: Right; PLACEMENT OF WOUND VAC Right 04/07/2025 Procedure: WOUND VACUUM ASSISTED CLOSURE; Surgeon: Sushil Dean Jr., MD; Location: [facility] OR; Service: Orthopedics; Laterality: Right; History [...] Jr., MD, 20 mg at 04/07/25950 heparin 86921 units/250 mL (100 units/mL) in 0.45 % [...] Units Date/Time FL C Arm During Surgery [[id number]] Resulted: 04/07/252137 Updated: 04/07/252137 Narrative: This procedure was auto-finalized with no dictation required. MRI Tibia Fibula Right With & Without Contrast [[id number]] Collected: 04/07/2538 Updated: 04/07/25 1001 Narrative: MRI [...] Buenrostro 04/07/2025 9:58 AM EDT Workstation ID: [id number] Impression: 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 (Treated by ID in [place] Dr. Harris). Dr. Torres treated him with [...] note were not included. [facility] Medicine Services PROGRESS NOTE Patient Name: Won [...] Buenrostro 04/07/2025 9:58 AM EDT Workstation ID: [id number] I have personally reviewed the therapy plans: [...] Jason Álvarez DO 04/07/25 * Larisa Hamilton [facility] - 04/07/2025 11:56 AM EDT [...] INFECTIOUS DISEASE Progress Note Won Dennis 1980 [id number] Date of Consult: 04/07/2025 Admission Date: 04/04/2025 [...] which prompted him to seek treatment at [facility]. He is known to Dr. [...] wound 05/09/25. HDS, on Heparin gtt. Currently [facility] has been asked to manage the antimicrobials [...] Application, 1 Application, Topical, Q12H, Ayah Valentin, LIQUOR INSPECTOR, 1 Application at 04/06/252101 DAPTOmycin (CUBICIN) 800 [...] Shepherd MD, 20 mg at 04/06/25899 heparin 87271 units/250 mL (100 units/mL) in 0.45 % NaCl infusion, 18 Units/kg/hr, Intravenous, Titrated, Cherri Beatty, [facility], Last Rate: 24.1 mL/hr at [...] With & Without Contrast - In process [[id number]] Resulted: 04/07/25828 Updated: 04/07/25828 This result has not been signed. Information might be incomplete. MRI Tibia Fibula Right With & Without Contrast [[id number]] Collected: 04/04/252256 Updated: 04/04/252302 Narrative: MRI TIBIA [...] represent a small area of phlegmonous change ([id number] image 10) measuring approximately 1.6 cm which [...] MD 04/04/2025 11:00 PM EDT Workstation ID: [id number] Impression: 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 (Treated by ID in [place] Dr. Harris). Dr. Torres treated him with [...] mg Daily 04/05/2025 -- Route: Oral heparin 78970 units/250 mL (100 units/mL) in 0.45 % [...] -- Admin Instructions: Open Order & Select [facility] Electrolyte Replacement Protocol Algorithm to View Details [...] -- Admin Instructions: Open Order & Select [facility] Electrolyte Replacement Protocol Algorithm to View Details [...] MD 04/07/25 06:07 EDT * Cherri Beatty [facility] - 04/06/2025 1:47 PM EDT [...] note were not included. [facility] Medicine Services PROGRESS NOTE Patient Name: Won [...] MD 04/04/2025 11:00 PM EDT Workstation ID: [id number] I have personally reviewed the therapy plans: [...] mg Daily 04/05/2025 -- Route: Oral heparin 26063 units/250 mL (100 units/mL) in 0.45 % [...] -- Admin Instructions: Open Order & Select [facility] Electrolyte Replacement Protocol Algorithm to View Details [...] INFECTIOUS DISEASE follow up. Won Dennis 1980 [id number] Date of Consult: 04/06/2025 Admission Date: 04/04/2025 [...] which prompted him to seek treatment at [facility]. He is known to Dr. [...] wound 05/09/25. HDS, on Heparin gtt. Currently [facility] has been asked to manage the antimicrobials [...] Application, 1 Application, Topical, Q12H, Ayah Valentin, LIQUOR INSPECTOR, 1 Application at 04/06/25 0859 DAPTOmycin (CUBICIN) [...] MD, 20 mg at 04/06/25 0900 heparin 07220 units/250 mL (100 units/mL) in 0.45 % NaCl infusion, 18 Units/kg/hr, Intravenous, Titrated, Cherri Beatty [facility], Last Rate: 24.1 mL/hr at [...] Tibia Fibula Right With & Without Contrast [[id number]] Collected: 04/04/252256 Updated: 04/04/252302 Narrative: MRI TIBIA [...] represent a small area of phlegmonous change (yjnbxi43 image 10) measuring approximately 1.6 cm which [...] MD 04/04/2025 11:00 PM EDT Workstation ID: [id number] Impression: 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 (Treated by ID in [place] Dr. Harris). Dr. Torres treated him with [...] MD 04/06/2025 16:00 EDT * Cherri Beatty, [facility] - 04/05/2025 3:01 PM EDT [...] note were not included. [facility] Medicine Services PROGRESS NOTE Patient Name: Won [...] MD 04/04/2025 11:00 PM EDT Workstation ID: [id number] I have personally reviewed the therapy plans: [...] note were not included. [facility] Medicine Services HISTORY AND PHYSICAL Patient Name: [...] MD 04/04/2025 11:00 PM EDT Workstation ID: [id number] Assessment & Plan Assessment & Plan Won [...] SURGERY [facility], [facility] [address] [address] Orthopedic Consult Patient: Won Dennis Date of Admission: 04/04/2025 4:10 PM Date of : 1980 Attending Physician: Jason Álvarez DO Consulting Physician: Sushil Dean Jr, MD Chief Complaint: 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 male admitted to [facility] with 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]. [...] was evaluated in the emergency department in [place], was discharged with instructions for follow-up. He [...] tablet by mouth Daily. 04/03/2025 Morning Lactobacillus-Inulin ([facility] [employer]) capsule Take 200 mg by mouth Daily. [...] MD 04/04/2025 11:00 PM EDT Workstation ID: [id number] Assessment: Right BKA infection 44-year-old male with [...] DISEASE CONSULT/INITIAL HOSPITAL VISIT Won Dennis 1980 [id number] Date of Consult: 04/05/2025 Admission Date: 04/04/2025 [...] which prompted him to seek treatment at [facility]. He is known to Dr. [...] wound 05/09/25. HDS, on Heparin gtt. Currently [facility] has been asked to manage the antimicrobials [...] Leonora Shepherd MD, 40 mg at 04/04/25 7099 sennosides-docusate (PERICOLACE) 8.6-50 MG per tablet 2 [...] MD, 20 mg at 04/05/25 0916 heparin 43756 units/250 mL (100 units/mL) in 0.45 % [...] Tibia Fibula Right With & Without Contrast [[id number]] Collected: 04/04/252256 Updated: 04/04/252302 Narrative: MRI TIBIA [...] represent a small area of phlegmonous change ([id number] image 10) measuring approximately 1.6 cm which [...] MD 04/04/2025 11:00 PM EDT Workstation ID: [id number] Impression: 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 (Treated by ID in [place] Dr. Harris). Dr. Torres treated him with [...] Management Recent Flowsheet Documentation Taken 04/09/2025 by Bbo Rosenberg RN Medication Review/Management: medications reviewed Taken [...] incontinence pads utilized Goal Outcome Evaluation: * Suasn Cavazos, PT - 04/06/2025 11:22 AM EDT [...] Jr., MD - 04/08/2025 3:51 PM EDT [facility] OPERATIVE REPORT PATIENT NAME: Won Dennis DATE OF : 1980 PREOP DIAGNOSIS: Right Right below-knee amputation infection POSTOP DIAGNOSIS: Same. PROCEDURE: Right Right 96938: Secondary closure below-knee amputation SURGEON: Sushil Dean MD OPERATIVE TEAM: Superintendent Stevedoring: Susi Grullon RN Scrub Person: Mary Paredes Scrub Person Extra: Hortencia Toribio Other: Katt Gotti RN; Charis Neville RN ANESTHETIST: Anesthesiologist: Ulises Hoffman MD MANNEQUIN MOLD MAKER: Stan Casillas CRNA Student Nurse Spreader Box Operator: Karol Albert SRNA ANESTHESIA: Choice ESTIMATED BLOOD [...] CULTURE (Canceled) Sushil Dean Jr., MD 04/08/25 5884 Description: RIGHT LEG DEEP WOUND FOR CULTURE [...] [facility] [address] [address] OPERATIVE REPORT PATIENT NAME: Won Dennis DATE OF : 1980 PREOP DIAGNOSIS: Right Right below knee amputation stump infection POSTOP DIAGNOSIS: Same. PROCEDURE: Right Right 18819: Incision and drainage of surgical site infection 86911: Debridement of skin, subcutaneous tissue, muscle 84192: Wound vacuum-assisted closure SURGEON: Sushil Dean MD OPERATIVE TEAM: Superintendent Stevedoring: Anum Sanchez RN Scrub Person: Hortencia Toribio; Gerald Ivey CAB STARTER: Anesthesiologist: Luci Alonso DO ANESTHESIA: General ESTIMATED [...] ago swellling of the area. seen at [facility] yesterday for CT and US, [...] this chart in the absence of a campaign worker. No orders to display RADIOLOGY: [x] Radiologist's [...] 04/11/2025 1:30 PM EDT Continued Stay Note [place] Patient Name: Won Dennis Today's Date: 04/11/2025 Admit Date: 04/04/2025 Plan: Home with outpatient infusion. Discharge Plan Row Name 04/11/25 1155 Plan Plan Home with outpatient infusion. Final Discharge Disposition Code 01 - home or self-care Final Note Patient discharging today. He is discharging home with outpatient infusion at [facility]. He has an appointment with [facility] at 8:00 am tomorrow. They will do PICC line dressing changes. DEBRA has spoke with Dena at [facility] today multiple times to get setup due [...] to get IV ABX at home with [facility]; however, Medicaid lapsed on 04/08. DEBRA was unaware until this morning that Medicaid has lapsed. Patient explained that he has Medicare A and B. CM spoke with KELLEE and given themhis Medicare number [id number], she sent it to Admission. DEBRA spoke with Kerri, with [facility], and explained that he had Medicare A and B. However, it will not cover home infusion. It will be $64.00 a day out of packet. Patients can go to the Infusion center at [facility], and it will cover the cost as an outpatient. He will need to go there every day for infusion. They will be able to do the patients' PICC line dressing changes and lab work. CM called Dena [facility] infusion center they can accept patient and start him. He is known for their facility. The Facility will need to run it through his insurance first. [facility] [place] at [phone]. CM will follow up with them tomorrow at [facility] to make sure they received the orders. [...] with patient at bedside today. [facility] Patient getting PICC line [...] note were not included. 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 Patient lives with and his 5 kids in [facility]. 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 He has walker, cane, shower chair, and crutches. He requested a wheelchair for home. CM will order wheelchair through [employer]. He is not current with home health services. PCP is Dr. Jordan. Insurance is [facility] Medicaid [place]. Patient discharge plan is home with priavte transport. CM will follow for any discharge needs. Final Discharge Disposition Code 01 - home or self-care Continued Care and Services - Admitted Since 04/04/2025 No active coordination exists. Demographic Summary Row Name 04/07/25 1143 General Information Arrived From hospital Preferred Language Montenegrin Functional Status Row Name 04/07/25 1143 Functional [...] Auto Differential (04/11/2025 3:40 AM EDT) [facility] WBC 7.87 3.40 - 10.80 10*3/mm3 04/11/2025 4:02 AM EDT [facility] RBC 4.70 4.14 - 5.80 10*6/mm3 04/11/2025 4:02 AM EDT [facility] Hemoglobin 12.8(L) 13.0 - 17.7 g/dL 04/11/2025 4:02 AM EDT [facility] Hematocrit 40.5 37.5 - 51.0 % 04/11/2025 4:02 AM EDT [facility] MCV 86.2 79.0 - 97.0 fL 04/11/2025 4:02 AM EDT [facility] MCH 27.2 26.6 - 33.0 pg 04/11/2025 4:02 AM EDT [facility] MCHC 31.6 31.5 - 35.7 g/dL 04/11/2025 4:02 AM EDT [facility] RDW 12.9 12.3 - 15.4 % 04/11/2025 4:02 AM EDT [facility] RDW-SD 40.5 37.0 - 54.0 fl 04/11/2025 4:02 AM EDT [facility] MPV 9.2 6.0 - 12.0 fL 04/11/2025 4:02 AM EDT [facility] Platelets 267 140 - 450 10*3/mm3 04/11/2025 4:02 AM [facility] Neutrophil % 59.5 42.7 - 76.0 % 04/11/2025 4:02 AM [facility] Lymphocyte % 26.3 19.6 - 45.3 % 04/11/2025 4:02 AM [facility] Monocyte % 9.3 5.0 - 12.0 % 04/11/2025 4:02 AM [facility] Eosinophil % 4.1 0.3 - 6.2 % 04/11/2025 4:02 AM [facility] Basophil % 0.4 0.0 - 1.5 % 04/11/2025 4:02 AM [facility] Immature Grans % 0.4 0.0 - 0.5 % 04/11/2025 4:02 AM [facility] Neutrophils, Absolute 4.69 1.70 - 7.00 10*3/mm3 04/11/2025 4:02 AM [facility] Lymphocytes, Absolute 2.07 0.70 - 3.10 10*3/mm3 04/11/2025 4:02 AM [facility] Monocytes, Absolute 0.73 0.10 - 0.90 10*3/mm3 04/11/2025 4:02 AM [facility] Eosinophils, Absolute 0.32 0.00 - 0.40 10*3/mm3 04/11/2025 4:02 AM [facility] Basophils, Absolute 0.03 0.00 - 0.20 10*3/mm3 04/11/2025 4:02 AM [facility] Immature Grans, Absolute 0.03 0.00 - 0.05 10*3/mm3 04/11/2025 4:02 AM [facility] nRBC 0.0 0.0 - 0.2 /100 WBC 04/11/2025 4:02 AM [facility] Blood Venipuncture / Unknown 04/11/2025 3:40 AM EDT 04/11/2025 3:59 AM EDT us Sushil Dean Jr., MD LAB BLOOD ORDERABLES Fi nal Result [facility]
[address] [place] [address], * (ABNORMAL) Comprehensive Metabolic Panel (04/11/2025 3:40 AM EDT) Glucose 108(H) 65 - 99 mg/dL 04/11/2025 4:19 AM EDT [facility] BUN 12.5 6.0 - 20.0 mg/dL 04/11/2025 4:19 AM EDT [facility] Creatinine 0.68(L) 0.76 - 1.27 mg/dL 04/11/2025 4:19 AM EDT [facility] Sodium 140 136 - 145 mmol/L 04/11/2025 4:19 AM EDT [facility] Potassium 3.8 3.5 - 5.2 mmol/L 04/11/2025 4:19 AM EDT [facility] Chloride 105 98 - 107 mmol/L 04/11/2025 4:19 AM EDT [facility] CO2 28.2 22.0 - 29.0 mmol/L 04/11/2025 4:19 AM EDT [facility] Calcium 8.2(L) 8.6 - 10.5 mg/dL 04/11/2025 4:19 AM EDT [facility] Total Protein 6.1 6.0 - 8.5 g/dL 04/11/2025 4:19 AM EDT [facility] Albumin 3.1(L) 3.5 - 5.2 g/dL 04/11/2025 4:19 AM EDT [facility] ALT (SGPT) 52(H) 1 - 41 U/L 04/11/2025 4:19 AM EDT [facility] AST (SGOT) 40 1 - 40 U/L 04/11/2025 4:19 AM EDT [facility] Alkaline Phosphatase 99 39 - 117 U/L 04/11/2025 4:19 AM EDT [facility] Total Bilirubin 0.2 0.0 - 1.2 mg/dL 04/11/2025 4:19 AM EDT [facility] Globulin 3.0 gm/dL 04/11/2025 4:19 AM EDT [facility] Comment:Calculated Result A/G Ratio 1.0 g/dL 04/11/2025 4:19 AM EDT [facility] BUN/Creatinine Ratio 18.4 7.0 - 25.0 04/11/2025 4:19 AM EDT [facility] Anion Gap 6.8 5.0 - 15.0 mmol/L 04/11/2025 4:19 AM EDT [facility] eGFR 117.5 >60.0 mL/min/1.7 3 04/11/2025 4:19 AM EDT [facility] Blood Venipuncture / Unknown 04/11/2025 3:40 AM EDT 04/11/2025 3:56 AM EDT [facility] - 04/11/2025 4:19 [...] Hill APRN LAB BLOOD ORDERABLES Final Result [facility]
[address] [place] [address], * (ABNORMAL) CBC Auto Differential (04/10/2025 3:46 AM EDT) [facility] WBC 9.60 3.40 - 10.80 10*3/mm3 04/10/2025 3:56 AM EDT [facility] RBC 4.67 4.14 - 5.80 10*6/mm3 04/10[facility]25 3[facility] Hemoglobin 12.9(L) 13.0 - 17.7 g/dL 04/10/2025 3:56 AM EDT [facility] Hematocrit 40.1 37.5 - 51.0 % 04/10/2025 3:[facility] MCV 85.9 79.0 - 97.0 fL 04/10/2025 3:56 [facility] MCH 27.6 26.6 - 33.0 pg 04/10/2025 3:56 AM [facility] MCHC 32.2 31.5 - 35.7 g/dL 04/10/2025 3:56 [facility] RDW 12.9 12.3 - 15.4 % 04/10/2025 3:56 AM [facility] RDW-SD 40.5 37.0 - 54.0 fl 04/10/2025 3:56 AM [facility] MPV 9.5 6.0 - 12.0 fL 04/10/2025 3:56 AM [facility] Platelets 227 140 - 450 10*3/mm3 04/10/2025 3:56 AM EDT [facility] Neutrophil % 59.1 42.7 - 76.0 % 04/10/2025 3:56 [facility] Lymphocyte % 29.0 19.6 - 45.3 % 04/10/2025 3:56 [facility] Monocyte % 8.1 5.0 - 12.0 % 04/10/2025 3:56 [facility] Eosinophil % 3.2 0.3 - 6.2 % 04/10/2025 3:56 AM EDT [facility] Basophil % 0.4 0.0 - 1.5 % 04/10/2025 3:56 AM EDT [facility] Immature Grans % 0.2 0.0 - 0.5 % 04/10/2025 3:56 AM EDT [facility] Neutrophils, Absolute 5.67 1.70 - 7.00 10*3/mm3 04/10/2025 3:56 AM EDT [facility] Lymphocytes, Absolute 2.78 0.70 - 3.10 10*3/mm3 04/10/2025 3:56 AM EDT [facility] Monocytes, Absolute 0.78 0.10 - 0.90 10*3/mm3 04/10/2025 3:56 AM EDT [facility] Eosinophils, Absolute 0.31 0.00 - 0.40 10*3/mm3 04/10/2025 3:56 AM EDT [facility] Basophils, Absolute 0.04 0.00 - 0.20 10*3/mm3 04/10/2025 3:56 AM EDT [facility] Immature Grans, Absolute 0.02 0.00 - 0.05 10*3/mm3 04/10/2025 3:56 AM EDT [facility] nRBC 0.0 0.0 - 0.2 /100 WBC 04/10/2025 3:56 AM EDT [facility] Blood Venipuncture / Unknown 04/10/2025 3:46 AM EDT 04/10/2025 3:53 AM EDT Jason Álvarez DO LAB BLOOD ORDERABLES Final Resul t [facility]
[address] [place] [address], * (ABNORMAL) Basic Metabolic Panel (04/10/2025 3:46 AM EDT) [facility] Glucose 125(H) 65 - 99 mg/dL 04/10/2025 4:20 AM EDT [facility] BUN 15.9 6.0 - 20.0 mg/dL 04/10/2025 4:20 AM T [facility] Creatinine 0.77 0.76 - 1.27 mg/dL 04/10/2025 4:20 AM T [facility] Sodium 137 136 - 145 mmol/L 04/10/2025 4:20 AM [facility] Potassium 3.9 3.5 - 5.2 mmol/L 04/10/2025 4:20 AM EDT [facility] Chloride 102 98 - 107 mmol/L 04/10/2025 4:20 AM EDT [facility] CO2 26.9 22.0 - 29.0 mmol/L 04/10/2025 4:20 AM [facility] Calcium 7.9(L) 8.6 - 10.5 mg/dL 04/10/2025 4:20 AM [facility] BUN/Creatinine Ratio 20.6 7.0 - 25.0 04/10/2025 4:20 AM [facility] Anion Gap 8.1 5.0 - 15.0 mmol/L 04/10/2025 4:20 AM [facility] eGFR 113.2 >60.0 mL/min/1.7 3 04/10/2025 4:20 AM [facility] Blood Venipuncture / Unknown 04/10/2025 3:46 AM EDT 04/10/2025 3:52 AM EDT [facility] - 04/10/2025 4:20 [...] DO LAB BLOOD ORDERABLES Final Resul t [facility]
[address] [place] [address], * Heparin Anti-Xa (04/10/2025 3:46 AM EDT) Heparin Anti-Xa (UFH) 0.35 0.30 - 0.70 IU/ml 04/10/2025 4:23 AM EDT [facility] Blood Venipuncture / Unknown 04/10/2025 3:46 AM EDT 04/10/2025 3:53 AM EDT [facility] LAB BLOOD ORDERABLES Final R esult Performing Organization Address City/[facility]/ZIP Co de Phone Number [facility]
[address] [place] [address], * Heparin Anti-Xa (04/09/2025 10:05 AM EDT) Heparin Anti-Xa (UFH) 0.36 0.30 - 0.70 IU/ml 04/09/2025 11:12 AM EDT [facility] Blood Venipuncture / Unknown 04/09/2025 10:05 AM EDT 04/09/2025 10:47 AM EDT [facility] LAB BLOOD ORDERABLES Final R esult [facility]
[address] [place] [address], * (ABNORMAL) CBC Auto Differential (04/09/2025 4:18 AM EDT) WBC 11.00(H) 3.40 - 10.80 10*3/mm3 04/09/2025 4:50 AM [facility] RBC 4.70 4.14 - 5.80 10*6/mm3 04/09/2025 4:50 AM EDT [facility] Hemoglobin 13.0 13.0 - 17.7 g/dL 04/09/2025 4:50 AM EDT [facility] Hematocrit 40.4 37.5 - 51.0 % 04/09/2025 4:50 AM EDT [facility] MCV 86.0 79.0 - 97.0 fL 04/09/2025 4:50 AM EDT [facility] MCH 27.7 26.6 - 33.0 pg 04/09/2025 4:[facility] MCHC 32.2 31.5 - 35.7 g/dL 04/09/2025 4:50 [facility] RDW 12.8 12.3 - 15.4 % 04/09/2025 4:50 [facility] RDW-SD 39.9 37.0 - 54.0 fl 04/09/2025 4:50 AM [facility] MPV 10.0 6.0 - 12.0 fL 04/09/2025 4:50 AM [facility] Platelets 211 140 - 450 10*3/mm3 04/09/2025 4:50 [facility] Neutrophil % 74.8 42.7 - 76.0 % 04/09/2025 4:50 AM EDT [facility] Lymphocyte % 15.4(L) 19.6 - 45.3 % 04/09/2025 4:50 AM EDT [facility] Monocyte % 8.5 5.0 - 12.0 % 04/09/2025 4:50 AM EDT [facility] Eosinophil % 0.6 0.3 - 6.2 % 04/09/2025 4:50 [facility] Basophil % 0.4 0.0 - 1.5 % 04/09/2025 4:50 AM EDT [facility] Immature Grans % 0.3 0.0 - 0.5 % 04/09/2025 4:50 AM EDT [facility] Neutrophils, Absolute 8.23(H) 1.70 - 7.00 10*3/mm3 04/09/2025 4:50 AM EDT [facility] Lymphocytes, Absolute 1.69 0.70 - 3.10 10*3/mm3 04/09/2025 4:50 AM EDT [facility] Monocytes, Absolute 0.94(H) 0.10 - 0.90 10*3/mm3 04/09/2025 4:50 AM EDT [facility] Eosinophils, Absolute 0.07 0.00 - 0.40 10*3/mm3 04/09/2025 4:50 AM EDT [facility] Basophils, Absolute 0.04 0.00 - 0.20 10*3/mm3 04/09/2025 4:50 AM EDT [facility] Immature Grans, Absolute 0.03 0.00 - 0.05 10*3/mm3 04/09/2025 4:50 AM EDT [facility] nRBC 0.0 0.0 - 0.2 /100 WBC 04/09/2025 4:50 AM EDT [facility] Blood Venipuncture / Unknown 04/09/2025 4:18 AM EDT 04/09/2025 4:31 AM EDT Sushil Dean Jr., MD LAB BLOOD ORDERABLES Fi nal Result [facility]
[address] [place] [address], * Heparin Anti-Xa (04/09/2025 4:18 AM EDT) Heparin Anti-Xa (UFH) 0.41 0.30 - 0.70 IU/ml 04/09/2025 4:53 AM EDT [facility] Blood Venipuncture / Unknown 04/09/2025 4:18 AM EDT 04/09/2025 4:31 AM EDT Una Wheeleroy PharmD LAB BLOOD ORDERABLES Final R esult [facility]
[address] [place] [address], * (ABNORMAL) Basic Metabolic Panel (04/09/2025 4:18 AM EDT) Pathologist [facility] Glucose 147(H) 65 - 99 mg/dL 04/09/2025 5:33 AM EDT [facility] BUN 23.0(H) 6.0 - 20.0 mg/dL 04/09/2025 5:33 AM EDT [facility] Creatinine 1.15 0.76 - 1.27 mg/dL 04/09/2025 5:33 AM EDT [facility] Sodium 135(L) 136 - 145 mmol/L 04/09/2025 5:33 AM EDT [facility] Potassium 4.2 3.5 - 5.2 mmol/L 04/09/2025 5:33 AM EDT [facility] Chloride 100 98 - 107 mmol/L 04/09/2025 5:33 AM EDT [facility] CO2 26.0 22.0 - 29.0 mmol/L 04/09/2025 5:33 AM EDT [facility] Calcium 8.2(L) 8.6 - 10.5 mg/dL 04/09/2025 5:33 AM EDT [facility] BUN/Creatinine Ratio 20.0 7.0 - 25.0 04/09/2025 5:33 AM EDT [facility] Anion Gap 9.0 5.0 - 15.0 mmol/L 04/09/2025 5:33 AM EDT [facility] eGFR 80.5 >60.0 mL/min/1.7 3 04/09/2025 5:33 AM EDT [facility] Blood Venipuncture / Unknown 04/09/2025 4:18 AM EDT 04/09/2025 4:29 AM EDT Narrative [facility] - 04/09/2025 5:33 AM EDT [...] Organization Address [facility] Co de Phone Number [facility]
[address] [place] [address], * Wound Culture - Swab, Leg, Right (04/08/2025 3:40 PM EDT) Wound Culture No growth at 3 days ALIZA 04/11/2025 10:40 AM EDT [facility] Gram Stain Few (2+) WBCs seen 04/11/2025 10:40 AM EDT [facility] Gram Stain No organisms seen 04/11/2025 10:40 AM EDT [facility] Swab Structure of right lower limb / Unknown 04/08/2025 3:40 PM EDT 04/08/2025 8:05 PM EDT Sushil Dean Jr., MD MICROBIOLOGY - GENERAL ORDERABLES Final Result Performing Organization Address City/[facility]/ZIP Co de Phone Number [facility]
[address] [phone], [facility]
[address] [place] [address], * Anaerobic Culture - Swab, Leg, Right (04/08/2025 3:40 PM EDT) Pathologist [facility] Anaerobic Culture No anaerobes isolated at 5 days ALIZA 04/13/2025 7:24 AM EDT [facility] Swab Structure of right lower limb / Unknown 04/08/2025 3:40 PM EDT 04/08/2025 8:05 PM EDT Sushil Dean Jr., MD MICROBIOLOGY - GENERAL ORDERABLES Final Result Performing Organization Address City/[facility] Co de Phone Number [facility]
[address] [place] [address], [place] [phone] * Scan Slide (04/08/2025 8:41 AM EDT) Pathologist [facility] RBC Morphology Normal Normal 04/08/2025 11:02 AM EDT [facility] WBC Morphology Normal Normal 04/08/2025 11:02 AM EDT [facility] Platelet Estimate Adequate Normal 04/08/2025 11:02 AM EDT [facility] Clumped Platelets Present None Seen 04/08/2025 11:02 AM EDT [facility] Blood Venipuncture / Unknown 04/08/2025 8:41 AM EDT 04/08/2025 9:10 AM EDT Una LundbergD LAB BLOOD ORDERABLES Final R esult Performing Organization Address City/[facility]/ZIP Co de Phone Number [facility]
[address] [place] [address], [place] [phone] * (ABNORMAL) CBC Auto Differential (04/08/2025 8:41 AM EDT) Pathologist [facility] WBC 10.07 3.40 - 10.80 10*3/mm3 04/08/2025 11:02 AM EDT [facility] RBC 5.01 4.14 - 5.80 10*6/mm3 04/08/2025 11:02 AM EDT [facility] Hemoglobin 14.0 13.0 - 17.7 g/dL 04/08/2025 11:02 AM [facility] Hematocrit 42.7 37.5 - 51.0 % 04/08/2025 11:02 AM [facility] MCV 85.2 79.0 - 97.0 fL 04/08/2025 11:02 AM [facility] MCH 27.9 26.6 - 33.0 pg 04/08/2025 11:02 AM [facility] MCHC 32.8 31.5 - 35.7 g/dL 04/08/2025 11:02 AM [facility] RDW 12.6 12.3 - 15.4 % 04/08/2025 11:02 AM [facility] RDW-SD 38.9 37.0 - 54.0 fl 04/08/2025 11:02 AM [facility] MPV 11.0 6.0 - 12.0 fL 04/08/2025 11:02 AM [facility] Platelets 118(L) 140 - 450 10*3/mm3 04/08/2025 11:02 AM [facility] Neutrophil % 85.1(H) 42.7 - 76.0 % 04/08/2025 11:02 AM [facility] Lymphocyte % 9.3(L) 19.6 - 45.3 % 04/08/2025 11:02 AM [facility] Monocyte % 4.6(L) 5.0 - 12.0 % 04/08/2025 11:02 AM [facility] Eosinophil % 0.3 0.3 - 6.2 % 04/08/2025 11:02 AM [facility] Basophil % 0.2 0.0 - 1.5 % 04/08/2025 11:02 AM [facility] Immature Grans % 0.5 0.0 - 0.5 % 04/08/2025 11:02 AM [facility] Neutrophils, Absolute 8.57(H) 1.70 - 7.00 10*3/mm3 04/08/2025 11:02 AM EDT [facility] Lymphocytes, Absolute 0.94 0.70 - 3.10 10*3/mm3 04/08/2025 11:02 AM EDT [facility] Monocytes, Absolute 0.46 0.10 - 0.90 10*3/mm3 04/08/2025 11:02 AM EDT [facility] Eosinophils, Absolute 0.03 0.00 - 0.40 10*3/mm3 04/08/2025 11:02 AM EDT [facility] Basophils, Absolute 0.02 0.00 - 0.20 10*3/mm3 04/08/2025 11:02 AM EDT [facility] Immature Grans, Absolute 0.05 0.00 - 0.05 10*3/mm3 04/08/2025 11:02 AM EDT [facility] nRBC 0.0 0.0 - 0.2 /100 WBC 04/08/2025 11:02 AM EDT [facility] Blood Venipuncture / Unknown 04/08/2025 8:41 AM EDT 04/08/2025 9:10 AM EDT Una Perla PharmD LAB BLOOD ORDERABLES Final R esult [facility]
[address] [place] [address], * (ABNORMAL) Basic Metabolic Panel (04/08/2025 8:41 AM EDT) Glucose 125(H) 65 - 99 mg/dL 04/08/2025 9:51 AM EDT [facility] BUN 13.2 6.0 - 20.0 mg/dL 04/08/2025 9:51 AM EDT [facility] Creatinine 0.69(L) 0.76 - 1.27 mg/dL 04/08/2025 9:51 AM EDT [facility] Sodium 136 136 - 145 mmol/L 04/08/2025 9:51 AM EDT [facility] Potassium 4.6 3.5 - 5.2 mmol/L 04/08/2025 9:51 AM EDT [facility] Chloride 102 98 - 107 mmol/L 04/08/2025 9:51 AM EDT [facility] CO2 23.5 22.0 - 29.0 mmol/L 04/08/2025 9:51 AM EDT [facility] Calcium 8.4(L) 8.6 - 10.5 mg/dL 04/08/2025 9:51 AM EDT [facility] BUN/Creatinine Ratio 19.1 7.0 - 25.0 04/08/2025 9:51 AM EDT [facility] Anion Gap 10.5 5.0 - 15.0 mmol/L 04/08/2025 9:51 AM EDT [facility] eGFR 117.0 >60.0 mL/min/1.7 3 04/08/2025 9:51 AM EDT [facility] Blood Venipuncture / Unknown 04/08/2025 8:41 AM EDT 04/08/2025 9:09 AM EDT [facility]ORY - 04/08/2025 9:51 AM [...] Jr., MD LAB BLOOD ORDERABLES nal Result [facility]
[address] [place] [address], * Heparin Anti-Xa (04/08/2025 8:41 AM EDT) Heparin Anti-Xa (UFH) 0.33 0.30 - 0.70 IU/ml 04/08/2025 9:40 AM EDT [facility] Blood Venipuncture / Unknown 04/08/2025 8:41 AM EDT 04/08/2025 9:10 AM EDT Sushil Dean Jr., MD LAB BLOOD ORDERABLES Fi nal Result [facility]
[address] [place] [address], * FL C Arm During Surgery (04/07/2025 9:32 PM EDT) Narrative SYSTEMGENERATED, DOCUMENTATION - 04/07/2025 9:38 PM EDT This procedure was auto-finalized with no dictation required. Sushil Dean Jr., MD IMG FLUOROSCOPY ORDERAB LES Final Result * Wound Culture - Swab, Leg, Right (04/07/2025 9:14 PM EDT) Wound Culture No growth at 3 days ALIZA 04/11/2025 10:40 AM EDT [facility] Gram Stain Occasional WBCs seen 04/11/2025 10:40 AM EDT [facility] Gram Stain No organisms seen 04/11/2025 10:40 AM EDT [facility] Swab Structure of right lower limb / Unknown Collection / Unknown 04/07/2025 9:14 PM EDT 04/08/2025 4:36 AM EDT Sushil Dean Jr., MD MICROBIOLOGY - GENERAL ORDERABLES Final Result [facility]
[address] [place] [address], [facility]
[address] [place] [address], * Anaerobic Culture - Swab, Leg, Right (04/07/2025 9:14 PM EDT) Anaerobic Culture No anaerobes isolated at 5 days ALIZA 04/13/2025 7:21 AM EDT [facility] Swab Structure of right lower limb / Unknown Collection / Unknown 04/07/2025 9:14 PM EDT 04/08/2025 4:36 AM EDT Sushil Dean Jr., MD MICROBIOLOGY - GENERAL ORDERABLES Final Result Performing Organization Address City/[facility]/ZIP Co de Phone Number [facility]
[address] [place] [address], * Anaerobic Culture - Tissue, Leg (04/07/2025 9:13 PM EDT) Anaerobic Culture No anaerobes isolated at 5 days ALIZA 04/13/2025 7:21 AM EDT [facility] Tissue Lower limb structure / Unknown Collection / Unknown 04/07/2025 9:13 PM EDT 04/08/2025 4:54 AM EDT Jason Álvarez DO MICROBIOLOGY - GENERAL ORDERABLE S Final Result [facility]
[address] [place] [address], * Tissue / Bone Culture - Tissue, Leg, Right (04/07/2025 9:13 PM EDT) Tissue Culture No growth at 3 days ALIZA 04/11/2025 10:36 AM EDT [facility] Gram Stain Rare (1+) WBCs seen 04/11/2025 10:36 AM EDT [facility] Gram Stain No organisms seen 04/11/2025 10:36 AM EDT [facility] Tissue Structure of right lower limb / Unknown 04/07/2025 9:13 PM EDT 04/08/2025 4:54 AM EDT Sushil Dean Jr., MD MICROBIOLOGY - GENERAL ORDERABLES Final Result Performing Organization Address City/[facility]/ZIP Co de Phone Number [facility]
[address] [place] [address], [place] [phone] [facility]
[address] [place] [address], [place] [phone] * (ABNORMAL) Wound Culture - Swab, Leg, Right (04/07/2025 9:07 PM EDT) Wound Culture Light growth (2+) Staphylococcus aureus, MRSA(A) ALIZA 04/10/2025 10:38 AM EDT [facility] Comment: Methicillin resistant Staphylococcus aureus, Patient may be an isolation risk. Gram Stain Few (2+) WBCs seen 04/10/2025 10:38 AM EDT [facility] Gram Stain No organisms seen 10:38 AM EDT [facility] Swab Structure of right lower [...] MD MICROBIOLOGY - GENERAL ORDERABLES Final Result [facility]
[address] [place] [address], [facility]
[address] [place] [address], * Anaerobic Culture - Swab, Leg, Right (04/07/2025 9:07 PM EDT) Pathologist [facility] Anaerobic Culture No anaerobes isolated at 5 days ALIZA 04/13/2025 7:21 AM EDT [facility] Swab Structure of right lower limb / Unknown Collection / Unknown 04/07/2025 9:07 PM EDT 04/08/2025 4:36 AM EDT Sushil Dean Jr., MD MICROBIOLOGY - GENERAL ORDERABLES Final Result Performing Organization Address [facility] Co de Phone Number [facility]
[address] [place] [address], * Heparin Anti-Xa (04/07/2025 9:10 AM EDT) [facility] Heparin Anti-Xa (UFH) 0.30 0.30 - 0.70 IU/ml 04/07/2025 10:12 AM EDT [facility] Blood Venipuncture / Unknown 04/07/2025 9:10 AM EDT 04/07/2025 9:38 AM EDT Una LundbergD LAB BLOOD ORDERABLES Final R esult Performing Organization Address City/[facility]/ZIP Co de Phone Number [facility]
[address] [place] [address], * (ABNORMAL) CBC Auto Differential (04/07/2025 9:10 AM EDT) Pathologist [facility] WBC 8.63 3.40 - 10.80 10*3/mm3 04/07/2025 9:50 AM EDT [facility] RBC 5.23 4.14 - 5.80 10*6/mm3 04/07/2025 9:[facility] Hemoglobin 14.7 13.0 - 17.7 g/dL 04/07/2025 9:50 [facility] Hematocrit 44.8 37.5 - 51.0 % 04/07/2025 9:50 [facility] MCV 85.7 79.0 - 97.0 fL 04/07/2025 9:50 AM EDT [facility] MCH 28.1 26.6 - 33.0 pg 04/07/2025 9:50 [facility] MCHC 32.8 31.5 - 35.7 g/dL 04/07/2025 9:50 [facility] RDW 12.8 12.3 - 15.4 % 04/07/2025 9:50 AM [facility] RDW-SD 39.9 37.0 - 54.0 fl 04/07/2025 9:50 AM [facility] MPV 10.8 6.0 - 12.0 fL 04/07/2025 9:50 AM [facility] Platelets 149 140 - 450 10*3/mm3 04/07/2025 9:50 [facility] Neutrophil % 66.7 42.7 - 76.0 % 04/07/2025 9:50 AM [facility] Lymphocyte % 20.5 19.6 - 45.3 % 04/07/2025 9:50 AM EDT [facility] Monocyte % 9.8 5.0 - 12.0 % 04/07/2025 9:50 AM [facility] Eosinophil % 2.1 0.3 - 6.2 % 04/07/2025 9:50 AM [facility] Basophil % 0.3 0.0 - 1.5 % 04/07/2025 9:50 AM [facility] Immature Grans % 0.6(H) 0.0 - 0.5 % 04/07/2025 9:50 AM EDT [facility] Neutrophils, Absolute 5.75 1.70 - 7.00 10*3/mm3 04/07/2025 9:50 AM EDT [facility] Lymphocytes, Absolute 1.77 0.70 - 3.10 10*3/mm3 04/07/2025 9:50 AM EDT [facility] Monocytes, Absolute 0.85 0.10 - 0.90 10*3/mm3 04/07/2025 9:50 AM EDT [facility] Eosinophils, Absolute 0.18 0.00 - 0.40 10*3/mm3 04/07/2025 9:50 AM EDT [facility] Basophils, Absolute 0.03 0.00 - 0.20 10*3/mm3 04/07/2025 9:50 AM EDT [facility] Immature Grans, Absolute 0.05 0.00 - 0.05 10*3/mm3 04/07/2025 9:50 AM EDT [facility] nRBC 0.0 0.0 - 0.2 /100 WBC 04/07/2025 9:50 AM EDT [facility] Blood Venipuncture / Unknown 04/07/2025 9:10 AM EDT 04/07/2025 9:38 AM EDT us Jason Álvarez DO LAB BLOOD ORDERABLES Final Resul t [facility]
[address] [place] [address], * (ABNORMAL) Basic Metabolic Panel (04/07/2025 9:10 AM EDT) Glucose 112(H) 65 - 99 mg/dL 04/07/2025 10:19 AM EDT [facility] BUN 13.1 6.0 - 20.0 mg/dL 04/07/2025 10:19 AM EDT [facility] Creatinine 0.77 0.76 - 1.27 mg/dL 04/07/2025 10:19 AM EDT [facility] Sodium 139 136 - 145 mmol/L 04/07/2025 10:19 AM EDT [facility] Potassium 4.2 3.5 - 5.2 mmol/L 04/07/2025 10:19 AM EDT [facility] Comment:Specimen hemolyzed. Result may be falsely elevated. Chloride 105 98 - 107 mmol/L 04/07/2025 10:19 AM EDT [facility] CO2 24.8 22.0 - 29.0 mmol/L 04/07/2025 10:19 AM EDT [facility] Calcium 8.6 8.6 - 10.5 mg/dL 04/07/2025 10:19 AM T [facility] BUN/Creatinine Ratio 17.0 7.0 - 25.0 04/07/2025 10:19 AM EDT [facility] Anion Gap 9.2 5.0 - 15.0 mmol/L 04/07/2025 10:19 AM T [facility] eGFR 113.2 >60.0 mL/min/1.7 3 04/07/2025 10:19 AM T [facility] Blood Venipuncture / Unknown 04/07/2025 9:10 AM EDT 04/07/2025 9:38 AM EDT Narrative [facility] - 04/07/2025 10:19 AM EDT [...] DO LAB BLOOD ORDERABLES Final Resul t [facility]
[address] [place] [address], * MRI Tibia Fibula Right With & [...] [place] 04/07/2025 9:58 AM EDT Workstation ID: [id number] Narrative 04/07/2025 9:58 AM EDT MRI TIBIA [...] [place] 04/07/2025 9:58 AM EDT Workstation ID: [id number] us Sushil Dean Jr., MD [facility] [place] ORDERABLES Mary Beth l Result * Heparin Anti-Xa (04/07/2025 1:42 AM EDT) Heparin Anti-Xa (UFH) 0.38 0.30 - 0.70 IU/ml 04/07/2025 2:14 AM EDT [facility] Blood Venipuncture / Unknown 04/07/2025 1:42 AM EDT 04/07/2025 1:54 AM EDT Chelsie Navarretesapna [facility] LAB BLOOD ORDERABLES Final R esult Performing Organization Address City/[facility]/ZIP Co de Phone Number [facility]
[address] [place] [address], * Heparin Anti-Xa (04/06/2025 7:16 PM EDT) Pathologist [facility] Heparin Anti-Xa (UFH) 0.33 0.30 - 0.70 IU/ml 04/06/2025 7:50 PM EDT [facility] Blood Venipuncture / Unknown 04/06/2025 7:16 PM EDT 04/06/2025 7:35 PM EDT Cherri Beatty [facility] LAB BLOOD ORDERABLES Final Res ult Performing Organization Address City/[facility] Co de Phone Number [facility]
[address] [place] [address], * Potassium (04/06/2025 7:16 PM EDT) Pathologist [facility] Potassium 4.0 3.5 - 5.2 mmol/L 04/06/2025 7:53 PM EDT [facility] Blood Venipuncture / Unknown 04/06/2025 7:16 PM EDT 04/06/2025 7:35 PM EDT Jason Álvarez DO LAB BLOOD ORDERABLES Final Resul t Performing Organization Address City/[facility]/ZIP Co de Phone Number [facility]
[address] [place] [address], * (ABNORMAL) Heparin Anti-Xa (04/06/2025 12:36 PM EDT) Heparin Anti-Xa (UFH) 0.24(L) 0.30 - 0.70 IU/ml 04/06/2025 1:23 PM EDT [facility] Blood Venipuncture / Unknown 04/06/2025 12:36 PM EDT 04/06/2025 1:07 PM EDT Una LundbergD LAB BLOOD ORDERABLES Final R esult [facility]
[address] [place] [address], * (ABNORMAL) Heparin Anti-Xa (04/06/2025 3:42 AM EDT) [facility] Heparin Anti-Xa (UFH) 0.25(L) 0.30 - 0.70 IU/ml 04/06/2025 5:30 AM EDT [facility] Blood Venipuncture / Unknown 04/06/2025 3:42 AM EDT 04/06/2025 4:59 AM EDT Chelsie Turpin [facility] LAB BLOOD ORDERABLES Final R esult [facility]
[address] [place] [address], * (ABNORMAL) Basic Metabolic Panel (04/06/2025 3:42 AM EDT) [facility] Glucose 94 65 - 99 mg/dL 04/06/2025 5:59 AM EDT [facility] BUN 12.8 6.0 - 20.0 mg/dL 04/06/2025 5:59 AM EDT [facility] Creatinine 0.80 0.76 - 1.27 mg/dL 04/06/2025 5:59 AM EDT [facility] Sodium 138 136 - 145 mmol/L 04/06/2025 5:59 AM EDT [facility] Potassium 3.6 3.5 - 5.2 mmol/L 04/06/2025 5:59 AM EDT [facility] Chloride 103 98 - 107 mmol/L 04/06/2025 5:59 AM EDT [facility] CO2 24.2 22.0 - 29.0 mmol/L 04/06/2025 5:59 AM EDT [facility] Calcium 8.0(L) 8.6 - 10.5 mg/dL 04/06/2025 5:59 AM EDT [facility] BUN/Creatinine Ratio 16.0 7.0 - 25.0 04/06/2025 5:59 AM EDT [facility] Anion Gap 10.8 5.0 - 15.0 mmol/L 04/06/2025 5:59 AM EDT [facility] eGFR 111.9 >60.0 mL/min/1.7 3 04/06/2025 5:59 AM EDT [facility] Blood Venipuncture / Unknown 04/06/2025 3:42 AM EDT 04/06/2025 5:20 AM EDT Narrative [facility] - 04/06/2025 5:59 AM EDT [...] DO LAB BLOOD ORDERABLES Final Resul t [facility]
[address] [place] [address], * (ABNORMAL) CBC Auto Differential (04/06/2025 3:41 AM EDT) WBC 10.86(H) 3.40 - 10.80 10*3/mm3 04/06/2025 5:04 AM EDT [facility] RBC 5.08 4.14 - 5.80 10*6/mm3 04/06/2025 5:04 AM EDT [facility] Hemoglobin 13.9 13.0 - 17.7 g/dL 04/06/2025 5:04 AM EDT [facility] Hematocrit 43.7 37.5 - 51.0 % 04/06/2025 5:04 AM EDT [facility] MCV 86.0 79.0 - 97.0 fL 04/06/2025 5:04 AM EDT [facility] MCH 27.4 26.6 - 33.0 pg 04/06/2025 5:04 AM EDT [facility] MCHC 31.8 31.5 - 35.7 g/dL 04/06/2025 5:04 AM EDT [facility] RDW 12.8 12.3 - 15.4 % 04/06/2025 5:04 AM EDT [facility] RDW-SD 40.0 37.0 - 54.0 fl 04/06/2025 5:04 AM EDT [facility] MPV 11.7 6.0 - 12.0 fL 04/06/2025 5:04 AM EDT [facility] Platelets 115(L) 140 - 450 10*3/mm3 04/06/2025 5:04 AM EDT [facility] Neutrophil % 65.3 42.7 - 76.0 % 04/06/2025 5:04 AM EDT [facility] Lymphocyte % 20.5 19.6 - 45.3 % 04/06/2025 5:04 AM EDT [facility] Monocyte % 11.8 5.0 - 12.0 % 04/06/2025 5:04 AM EDT [facility] Eosinophil % 1.8 0.3 - 6.2 % 04/06/2025 5:04 AM EDT [facility] Basophil % 0.3 0.0 - 1.5 % 04/06/2025 5:04 AM EDT [facility] Immature Grans % 0.3 0.0 - 0.5 % 04/06/2025 5:04 AM EDT [facility] Neutrophils, Absolute 7.09(H) 1.70 - 7.00 10*3/mm3 04/06/2025 5:04 AM EDT [facility] Lymphocytes, Absolute 2.23 0.70 - 3.10 10*3/mm3 04/06/2025 5:04 AM EDT [facility] Monocytes, Absolute 1.28(H) 0.10 - 0.90 10*3/mm3 04/06/2025 5:04 AM EDT [facility] Eosinophils, Absolute 0.20 0.00 - 0.40 10*3/mm3 04/06/2025 5:04 AM EDT [facility] Basophils, Absolute 0.03 0.00 - 0.20 10*3/mm3 04/06/2025 5:04 AM EDT [facility] Immature Grans, Absolute 0.03 0.00 - 0.05 10*3/mm3 04/06/2025 5:04 AM EDT [facility] nRBC 0.0 0.0 - 0.2 /100 WBC 04/06/2025 5:04 AM EDT [facility] Blood Venipuncture / Unknown 04/06/2025 3:41 AM EDT 04/06/2025 4:58 AM EDT us Jason Álvarez DO LAB BLOOD ORDERABLES Final Resul t [facility]
[address] [place] [address], * Heparin Anti-Xa (04/05/2025 8:43 PM EDT) Heparin Anti-Xa (UFH) 0.38 0.30 - 0.70 IU/ml 04/05/2025 9:09 PM EDT [facility] Blood Venipuncture / Unknown 04/05/2025 8:43 PM EDT 04/05/2025 8:55 PM EDT Cherri Beatty [facility] LAB BLOOD ORDERABLES Final Res ult Performing Organization Address [facility] Co de Phone Number [facility]
[address] [place] [address], * CK (04/05/2025 12:15 PM EDT) Creatine Kinase 140 20 - 200 U/L 04/05/2025 1:31 PM EDT [facility] Blood Venipuncture / Unknown 04/05/2025 12:15 PM EDT 04/05/2025 1:03 PM EDT Carlton Mead MD LAB BLOOD ORDERABLES Final R esult Performing Organization Address [facility] Co de Phone Number [facility]
[address] [place] [address], [place] [phone] * (ABNORMAL) Heparin Anti-Xa (04/05/2025 12:15 PM EDT) Heparin Anti-Xa (UFH) 0.17(L) 0.30 - 0.70 IU/ml 04/05/2025 1:21 PM EDT [facility] Blood Venipuncture / Unknown 04/05/2025 12:15 PM EDT 04/05/2025 1:04 PM EDT Una LundbergD LAB BLOOD ORDERABLES Final R esult Performing Organization Address City/[facility]/ZIP Co de Phone Number [facility]
[address] [place] [address], * (ABNORMAL) aPTT (04/05/2025 3:54 AM EDT) [facility] PTT 35.3(L) 60.0 - 90.0 seconds 04/05/2025 4:31 AM EDT [facility] Blood Venipuncture / Unknown 04/05/2025 3:54 AM EDT 04/05/2025 4:15 AM EDT Narrative [facility] - 04/05/2025 4:31 AM EDT PTT = The equivalent PTT values for the therapeutic range of heparin levels at 0.3 to 0.5 U/ml are 60 to 70 seconds. Una Perla Red CondorD LAB BLOOD ORDERABLES Final R esult Performing Organization Address [facility] Co de Phone Number [facility]
[address] [place] [address], * Heparin Anti-Xa (04/05/2025 3:54 AM EDT) [facility] Heparin Anti-Xa (UFH) 0.30 0.30 - 0.70 IU/ml 04/05/2025 4:32 AM EDT [facility] Blood Venipuncture / Unknown 04/05/2025 3:54 AM EDT 04/05/2025 4:15 AM EDT [employer] LAB BLOOD ORDERABLES Final R esult Performing Organization Address City/[facility] Co de Phone Number [facility]
[address] [place] [address], * (ABNORMAL) CBC Auto Differential (04/05/2025 3:54 AM EDT) [facility] WBC 11.18(H) 3.40 - 10.80 10*3/mm3 04/05/2025 4:20 AM EDT [facility] RBC 5.00 4.14 - 5.80 10*6/mm3 04/05/2025 4:20 AM EDT [facility] Hemoglobin 13.9 13.0 - 17.7 g/dL 04/05/2025 4:20 AM EDT [facility] Hematocrit 42.4 37.5 - 51.0 % 04/05/2025 4:20 AM EDT [facility] MCV 84.8 79.0 - 97.0 fL 04/05/2025 4:20 AM EDT [facility] MCH 27.8 26.6 - 33.0 pg 04/05/2025 4:[facility] MCHC 32.8 31.5 - 35.7 g/dL 04/05/2025 4:20 AM [facility] RDW 12.9 12.3 - 15.4 % 04/05/2025 4:20 AM [facility] RDW-SD 39.7 37.0 - 54.0 fl 04/05/2025 4:20 AM [facility] MPV 10.2 6.0 - 12.0 fL 04/05/2025 4:20 AM [facility] Platelets 160 140 - 450 10*3/mm3 04/05/2025 4:20 AM [facility] Neutrophil % 73.5 42.7 - 76.0 % 04/05/2025 4:20 [facility] Lymphocyte % 14.0(L) 19.6 - 45.3 % 04/05/2025 4:20 AM EDT [facility] Monocyte % 11.0 5.0 - 12.0 % 04/05/2025 4:20 AM [facility] Eosinophil % 0.8 0.3 - 6.2 % 04/05/2025 4:20 AM [facility] Basophil % 0.3 0.0 - 1.5 % 04/05/2025 4:20 AM EDT [facility] Immature Grans % 0.4 0.0 - 0.5 % 04/05/2025 4:20 AM EDT [facility] Neutrophils, Absolute 8.23(H) 1.70 - 7.00 10*3/mm3 04/05/2025 4:20 AM EDT [facility] Lymphocytes, Absolute 1.56 0.70 - 3.10 10*3/mm3 04/05/2025 4:20 AM EDT [facility] Monocytes, Absolute 1.23(H) 0.10 - 0.90 10*3/mm3 04/05/2025 4:20 AM EDT [facility] Eosinophils, Absolute 0.09 0.00 - 0.40 10*3/mm3 04/05/2025 4:20 AM EDT [facility] Basophils, Absolute 0.03 0.00 - 0.20 10*3/mm3 04/05/2025 4:20 AM EDT [facility] Immature Grans, Absolute 0.04 0.00 - 0.05 10*3/mm3 04/05/2025 4:20 AM EDT [facility] nRBC 0.0 0.0 - 0.2 /100 WBC 04/05/2025 4:20 AM EDT [facility] Blood Venipuncture / Unknown 04/05/2025 3:54 AM EDT 04/05/2025 4:16 AM EDT Una Perla PharmD LAB BLOOD ORDERABLES Final R esult [facility]
[address] [place] [address], * (ABNORMAL) Basic Metabolic Panel (04/05/2025 3:54 AM EDT) [facility] Signature Glucose 152(H) 65 - 99 mg/dL 04/05/2025 4:40 AM EDT [facility] BUN 17.3 6.0 - 20.0 mg/dL 04/05/2025 4:40 AM T [facility] Creatinine 0.92 0.76 - 1.27 mg/dL 04/05/2025 4:40 AM EDT [facility] Sodium 136 136 - 145 mmol/L 04/05/2025 4:40 AM EDT [facility] Potassium 3.9 3.5 - 5.2 mmol/L 04/05/2025 4:40 AM EDT [facility] Chloride 103 98 - 107 mmol/L 04/05/2025 4:40 AM EDT [facility] CO2 24.0 22.0 - 29.0 mmol/L 04/05/2025 4:40 AM T [facility] Calcium 7.8(L) 8.6 - 10.5 mg/dL 04/05/2025 4:40 AM [facility] BUN/Creatinine Ratio 18.8 7.0 - 25.0 04/05/2025 4:40 AM T [facility] Anion Gap 9.0 5.0 - 15.0 mmol/L 04/05/2025 4:40 AM [facility] eGFR 105.2 >60.0 mL/min/1.7 3 04/05/2025 4:40 AM [facility] Blood Venipuncture / Unknown 04/05/2025 3:54 AM EDT 04/05/2025 4:15 AM EDT [facility] - 04/05/2025 4:40 [...] Organization Address [facility] Co de Phone Number [facility]
[address] [place] [address], * (ABNORMAL) aPTT (04/05/2025 12:18 AM EDT) PTT 33.6(L) 60.0 - 90.0 seconds 04/05/2025 12:53 AM EDT [facility] Blood Venipuncture / Unknown 04/05/2025 12:18 AM EDT 04/05/2025 12:37 AM EDT Narrative [facility] - 04/05/2025 12:53 AM EDT PTT = The equivalent PTT values for the therapeutic range of heparin levels at 0.3 to 0.5 U/ml are 60 to 70 seconds. Una Perla PharmD LAB BLOOD ORDERABLES Final R esult Performing Organization Address [facility] Co de Phone Number [facility]
[address] [place] [address], [place] [phone] * (ABNORMAL) Protime-INR (04/05/2025 12:18 AM EDT) Protime 15.9(H) 12.2 - 15.3 Seconds 04/05/2025 12:53 AM EDT [facility] INR 1.19(H) 0.89 - 1.12 04/05/2025 12:53 AM EDT [facility] Blood Venipuncture / Unknown 04/05/2025 12:18 AM EDT 04/05/2025 12:37 AM EDT Una Perla PharmD LAB BLOOD ORDERABLES Final R esult Performing Organization Address City/[facility] Co de Phone Number [facility]
[address] [place] [address], [place] [phone] * Heparin Anti-Xa (04/05/2025 12:18 AM EDT) Heparin Anti-Xa (UFH) 0.39 0.30 - 0.70 IU/ml 04/05/2025 12:54 AM EDT [facility] Blood Venipuncture / Unknown 04/05/2025 12:18 AM EDT 04/05/2025 12:37 AM EDT Una Perla PharmD LAB BLOOD ORDERABLES Final R esult [facility]
[address] [place] [address], * MRI Tibia Fibula Right With & [...] MD 04/04/2025 11:00 PM EDT Workstation ID: [id number] Narrative 04/04/2025 11:00 PM EDT MRI TIBIA [...] MD 04/04/2025 11:00 PM EDT Workstation ID: [id number] us Leonora Shepherd MD IMG MRI ORDERABLES Final Resu lt * POC Creatinine (04/04/2025 2:49 PM EDT) [facility] Creatinine 1.10 0.60 - 1.30 mg/dL 04/07/2025 7:14 PM EDT [facility] Comment:Serial Number: [id number]: [id number] Venous Blood 04/04/2025 2:49 PM EDT 04/07/2025 7:14 PM EDT Jason Álvarez DO POINT OF CARE TEST ORDERABLES Fi nal Result [facility]
[address] [place] [address], * (ABNORMAL) CBC Auto Differential (04/04/2025 2:47 PM EDT) [facility] WBC 12.72(H) 3.40 - 10.80 10*3/mm3 04/04/2025 2:56 PM EDT [facility] RBC 5.64 4.14 - 5.80 10*6/mm3 04/04/2025 2:56 PM EDT [facility] Hemoglobin 15.3 13.0 - 17.7 g/dL 04/04/2025 2:56 PM EDT [facility] Hematocrit 47.9 37.5 - 51.0 % 04/04/2025 2:56 PM EDT [facility] MCV 84.9 79.0 - 97.0 fL 04/04/2025 2:56 PM EDT [facility] MCH 27.1 26.6 - 33.0 pg 04/04/2025 2:56 PM EDT [facility] MCHC 31.9 31.5 - 35.7 g/dL 04/04/2025 2:56 PM EDT [facility] RDW 13.1 12.3 - 15.4 % 04/04/2025 2:[facility] [address] [facility] 40.3 37.0 - 54.0 fl 04/04/2025 2:56 PM EDT [facility] MPV 9.4 6.0 - 12.0 fL 04/04/2025 2:56 PM EDT [facility] Platelets 232 140 - 450 10*3/mm3 04/04/2025 2:56 PM EDT [facility] Neutrophil % 74.9 42.7 - 76.0 % 04/04/2025 2:56 PM EDT [facility] Lymphocyte % 13.1(L) 19.6 - 45.3 % 04/04/2025 2:[facility] Monocyte % 11.2 5.0 - 12.0 % 04/04/2025 2:[facility] Eosinophil % 0.4 0.3 - 6.2 % 04/04/2025 2:56 PM EDT [facility] Basophil % 0.2 0.0 - 1.5 % 04/04/2025 2:[facility] Immature Grans % 0.2 0.0 - 0.5 % 04/04/2025 2:56 [facility] Neutrophils, Absolute 9.52(H) 1.70 - 7.00 10*3/mm3 04/04/2025 2:56 PM [facility] Lymphocytes, Absolute 1.66 0.70 - 3.10 10*3/mm3 04/04/2025 2:56 PM EDT [facility] Monocytes, Absolute 1.43(H) 0.10 - 0.90 10*3/mm3 04/04/2025 2:56 PM EDT [facility] Eosinophils, Absolute 0.05 0.00 - 0.40 10*3/mm3 04/04/2025 2:[facility] Basophils, Absolute 0.03 0.00 - 0.20 10*3/mm3 04/04/2025 2:56 PM EDT [facility] Immature Grans, Absolute 0.03 0.00 - 0.05 10*3/mm3 04/04/2025 2:56 PM EDT [facility] nRBC 0.0 0.0 - 0.2 /100 WBC 04/04/2025 2:56 PM EDT [facility] Blood Venipuncture / Unknown 04/04/2025 2:47 PM EDT 04/04/2025 2:52 PM EDT [email or web address] [email or web address] LAB BLOOD ORDERABLES Fin al Result Performing Organization Address City/[facility]/ZIP Co de Phone Number [facility]
[address] [place] [address], * (ABNORMAL) C-reactive Protein (04/04/2025 2:47 PM EDT) C-Reactive Protein 8.57(H) 0.00 - 0.50 mg/dL 04/04/2025 3:26 PM EDT [facility] Blood Venipuncture / Unknown 04/04/2025 2:47 PM EDT 04/04/2025 2:52 PM EDT [email or web address] LAB BLOOD ORDERABLES Fin al Result Performing Organization Address [facility] de Phone Number [facility]
[address] [place] [address], * (ABNORMAL) Sedimentation Rate (04/04/2025 2:47 PM EDT) Sed Rate 51(H) 0 - 15 mm/hr 04/04/2025 3:06 PM EDT [facility] Blood Venipuncture / Unknown 04/04/2025 2:47 PM EDT 04/04/2025 2:52 PM EDT [facility]iz [email or web address] LAB BLOOD ORDERABLES Fin al Result Performing Organization Address City/[facility]/ZIP Co de Phone Number [facility]
[address] [place] [address], * Comprehensive Metabolic Panel (04/04/2025 2:47 PM EDT) [facility] Glucose 90 65 - 99 mg/dL 04/04/2025 3:26 PM EDT [facility] BUN 18.3 6.0 - 20.0 mg/dL 04/04/2025 3:26 PM EDT [facility] Creatinine 0.94 0.76 - 1.27 mg/dL 04/04/2025 3:26 PM EDT [facility] Sodium 136 136 - 145 mmol/L 04/04/2025 3:26 PM EDT [facility] Potassium 3.8 3.5 - 5.2 mmol/L 04/04/2025 3:26 PM EDT [facility] Chloride 100 98 - 107 mmol/L 04/04/2025 3:26 PM EDT [facility] CO2 25.3 22.0 - 29.0 mmol/L 04/04/2025 3:26 PM EDT [facility] Calcium 8.6 8.6 - 10.5 mg/dL 04/04/2025 3:26 PM EDT [facility] Total Protein 7.3 6.0 - 8.5 g/dL 04/04/2025 3:26 PM EDT [facility] Albumin 4.1 3.5 - 5.2 g/dL 04/04/2025 3:26 PM EDT [facility] ALT (SGPT) 26 1 - 41 U/L 04/04/2025 3:26 PM EDT [facility] AST (SGOT) 25 1 - 40 U/L 04/04/2025 3:26 PM EDT [facility] Alkaline Phosphatase 106 39 - 117 U/L 04/04/2025 3:26 PM EDT [facility] Total Bilirubin 1.0 0.0 - 1.2 mg/dL 04/04/2025 3:26 PM EDT [facility] Globulin 3.2 gm/dL 04/04/2025 3:26 PM EDT [facility] Comment:Calculated Result A/G Ratio 1.3 g/dL 04/04/2025 3:26 PM EDT [facility] BUN/Creatinine Ratio 19.5 7.0 - 25.0 04/04/2025 3:26 PM EDT [facility] Anion Gap 10.7 5.0 - 15.0 mmol/L 04/04/2025 3:26 PM EDT [facility] eGFR 102.5 >60.0 mL/min/1.7 3 04/04/2025 3:26 PM EDT [facility] Blood Venipuncture / Unknown 04/04/2025 2:47 PM EDT 04/04/2025 2:52 PM EDT Narrative [facility] - 04/04/2025 3:26 PM EDT [...] DO LAB BLOOD ORDERABLES Fin al Result [facility]
[id number] [place] [address], documented in this encounter Visit Diagnoses Diagnosis [...] 04/05/2025 3:33 PM EDT 2,000 Units heparin 23281 units/250 mL (100 units/mL) in 0.45 % [...] BPA Driven Protocol Open Order & [facility] Electrolyte Replacement Protocol Algorithm to View Details [...] BPA Driven Protocol Open Order & [facility] Electrolyte Replacement Protocol Algorithm to View Details [...] disposal. 0831 (Given - Provider: Amber Salazar, SURG TECH)194 (Given - Provider: Anahy Marcelino, SURG TECH)2129 (Canceled Entry - Provider: Anahy Marcelino RRT [...] Continuous Medication Order 04/09/2025 04/10/2025 04/11/2025 heparin 98298 units/250 mL (100 units/mL) in 0.45 % [...] BPA Driven Protocol Open Order & [facility] Electrolyte Replacement Protocol Algorithm to View Details [...] Shirley Hart, LU)1508 (Given - Provider: Shirley Hatr, LU)2030 (Given - Provider: Alberto Dillon, RN) [...] BPA Driven Protocol Open Order & [facility] Electrolyte Replacement Protocol Algorithm to View Details [...] documented as of this encounter Care Teams [employer] Relationship Specialty Start Date End Date Provider, [place] [address] PCP - General 05/09/23 documented as of this encounter
--- OUTSIDE RECORDS SUMMARY | 2025-04-07 18:00 | XMS_ITS | Encounter Summary ---
[facility] Organization [facility] Address [address] [place] [address] Care Team Providers Care Practice Or Student Teacher Name Role Phone Provider, No Known Primary Care Provider Unavail able Reason for Visit * Reason Comments Leg Swelling * Auth/Cert Specialty Diagnoses / Procedures Referred By Contac t Referred To Contact Diagnoses Right BKA infection Referral ID Status Reason Start Date Expiration Date Visits Re quested Visits Authorized [id number] 1 1 Encounter Details Date Type Department Care Team (Late st Contact Info) Description 04/07/2025 6:00 PM EDT - 04/07/2025 6:52 PM EDT Surgery [facility] OR [address] [place] [address] Sushil Dean Jr., MD [address] [place] [address] [address] [id number] LEG DEBRIDEMENT, IRRIGATION Social History Tobacco Use Types Packs/Day Years Used Date Smoking Tobacco: Never Smokeless Tobacco: Never Tobacco Cessation:Counseling Given: Not Answered Alcohol Use Standard Drinks/Week Comments Not Currently 0 (1 standard drink = 0.6 oz pur e alcohol) [facility] Utilities Answer Date Recorded In the past 12 months has [employer] electric, gas, oil, or water company threatened [...] or training? Not on file Preferred Language Costa Rican 04/07/2025 Sex and Gender Information Value Date [...] 2:25 PM EDT Cherri Grimm RN * [place] Suicide Severity Rating Scale (Screener/Recent Self-Report) Question [...] from the original note were not included. [facility] Medicine Services DISCHARGE SUMMARY Patient Name: [...] Date/Time Wound Culture - Swab, Leg, Right [[id number]] (Abnormal) (Susceptibility) Collected: 04/07/252106 Lab Status: Final [...] Units Date/Time FL C Arm During Surgery [[id number]] Resulted: 04/07/252137 Updated: 04/07/252137 Narrative: This procedure was auto-finalized with no dictation required. MRI Tibia Fibula Right With & Without Contrast [[id number]] Collected: 04/07/25 0938 Updated: 04/07/25 1001 Narrative: [...] Buenrostro 04/07/2025 9:58 AM EDT Workstation ID: [id number] MRI Tibia Fibula Right With & Without Contrast [[id number]] Collected: 04/04/252256 Updated: 04/04/252302 Narrative: MRI TIBIA [...] represent a small area of phlegmonous change (cavcyr16 image 10) measuring approximately 1.6 cm which [...] MD 04/04/2025 11:00 PM EDT Workstation ID: [id number] Pending Labs Order Current Status Fungus Culture [...] Male) Date of 1980 Social Security Number [id number] [place] [address] [place] [address] [employer]ec[employer] Unknown Marital Status Unknown Admission Date 04/04/2025 Admission Type Emergency Admitting Provider Jadyn Richardson DO Attending Provider Jadyn Richardson DO Department, Room/Bed [facility] 5G, S565/1 Discharge Date Discharge Disposition Discharge Destination Attending Provider: Jadyn Richardson DO Allergies: Ceftin [Cefuroxime], Keflex [Cephalexin], Latex Isolation: None Infection: MRSA (05/11/23) Code Status: CPR Ht: 180.3 cm (71 ) Wt: 134 kg (295 lb) Admission Cmt: None 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 Insurance as of 04/04/2025 Primary Coverage Payor Plan Insurance Group Employer/Plan Group [place] [id number] Payor Plan Address Payor Plan Phone Number Payor Plan Fax Number Effective Dates [employer] [address] [address] 08/10/2023 - None Entered [facility] [address] Subscriber Name Subscriber Date Member ID WON DENNIS 1980 [id number] Emergency Contacts Forester Aide (Rel.) Home Phone Work Phone Mobile Phone Avril Dennis (Spouse) -- -- [phone] Robert Hackett (Relative) -- -- [phone] [facility] 5G [address] [facility] [address] Patient: ROOM: [facility] Won Dennis [address] [place] [place] [address] : 1980 SSN: [id number] Sex: M PCP: Provider, No Known Emergency Contact Information Name Relation Home Work Mobile Avril Dennis Spouse [phone] Other Contacts Name Relation Home Work Mobile Robert Hackett Relative [phone] INSURANCE PAYOR PLAN GROUP # SUBSCRIBER ID Primary: Secondary: MEDICARE [place] [id number] Admitting Diagnosis: 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 Outpatient intravenous antibiotic therapy: Daptomycin 800 mg IV daily to be supplied by [facility] 2. Home health to perform [...] INFECTIOUS DISEASE Progress Note Won Dennis 1980 [id number] Date of Consult: 04/10/2025 Admission Date: 04/04/2025 [...] HDS, on Heparin gtt. Currently [facility] has been asked to [...] Jr., MD, 20 mg at 04/09/25906 heparin 89266 units/250 mL (100 units/mL) in 0.45 % [...] (Premix) 500 mL Status: Discontinued Ordering Provider: nUa Perla, PharmD 1,500 mg 333.3 mL/hr over 90 Minutes Intravenous Every 12 Hours 04/05/25 0800 04/05/25 1207 04/04/252004 Pharmacy to dose vancomycin Status: Discontinued Ordering Provider: Leonora Shepherd MD Not Applicable Continuous PRN 04/04/25200404/05/25 1207 04/04/25 1943 vancomycin 2750 mg/500 mL 0.9% NS IVPB ([facility]) Ordering Provider: Mario Crowley, [...] Units Date/Time FL C Arm During Surgery [[id number]] Resulted: 04/07/252137 Updated: 04/07/252137 Narrative: This procedure was auto-finalized with no dictation required. MRI Tibia Fibula Right With & Without Contrast [[id number]] Collected: 04/07/2538 Updated: 04/07/25 1001 Narrative: MRI [...] Buenrostro 04/07/2025 9:58 AM EDT Workstation ID: [id number] Impression: Recurrent Right BKA stump abscess/cellulitis- this [...] discussed his disposition with the pharmacist at [facility] today. I will sign off Outpatient orders: 1. Outpatient intravenous antibiotic therapy: Daptomycin 800 mg IV daily to be supplied by [facility] 2. Home health to perform weekly PICC line dressing changes with a Biopatch or Tegaderm CHG gel dressing 3. CBC, CMP, ESR, CRP, and CPK weekly-forward results to Dr. Rubens Torres 4. Follow-up with Dr. Rubens oTrres in the next 1-2 weeks 5. Home [...] 04/10/251323 Creation Time: 04/10/251323 Signed Expand All [facility] Medicine Services PROGRESS NOTE Patient [...] Date/Time Wound Culture - Swab, Leg, Right [[id number]] (Abnormal) (Susceptibility) Collected: 04/07/252106 Lab Status: Final [...] Row Name 04/06/25 1143 Sit-Stand Transfer Sit-Stand [place] (Transfers) modified independence - Comment, (Sit-Stand Transfer) Pt stood from recliner. Not holding onto walker, pt able to pull his pants up while balancing on his one leg. -LM Row Name 04/06/25 1143 Gait/Stairs (Locomotion) [place] Level (Gait) modified independence - Distance in [...] Motion bilateral lower extremity ROM WFL -LM [facility] Name 04/06/25 1145 Strength Comprehensive (MMT) General Manual Muscle Testing (MMT) Assessment no strength deficits identified BLEs -LM [facility] Name 04/06/25 1145 Balance Balance Assessment [...] Physical Therapist Goals/Plan No documentation. Clinical Impression [facility] 04/06/25 1146 Pain Pretreatment Pain Rating 0/10 - no pain -LM Posttreatment Pain Rating 0/10 - no pain -LM [facility] 04/06/25 1146 Plan of Care Review Plan of Care Reviewed With patient -LM Outcome Evaluation PT evaluation completed. Pt demonstrated independence with all mobility including ambulating 100 feet using rw - no unsteadiness noted. Pt reports he feels at baseline and doesn't think he needs skilled PT while here. Recommend home at d/c. PT signing off. -LM [facility] Name 04/06/25 1146 Therapy Assessment/Plan (PT) Criteria for Skilled Interventions Met (PT) no;no problems identified which require skilled intervention -LM Therapy Frequency (PT) evaluation only -LM Predicted Duration of Therapy Intervention (PT) Eval Only -LM [facility] Name 04/06/25 1146 Vital Signs Pretreatment Heart Rate (beats/min) 86 -LM Posttreatment Heart Rate (beats/min) 96 -LM Pre SpO2 (%) 95 -LM O2 Delivery Pre Treatment room air -LM Post SpO2 (%) 96 -LM O2 Delivery Post Treatment room air -LM Pre Patient Position Sitting -LM Post Patient Position Sitting -LM [facility] Name 04/06/25 1146 Positioning and Restraints [...] Nurse Physical Therapy Education Title: PT OT REHAB SPEC Therapies (Done) Topic: Physical Therapy (Done) Point: Mobility training (Done) Learning Progress Summary Patient Acceptance, E, VU,DU by at 04/06/2025 1147 Point: Precautions (Done) Learning Progress Summary Patient Acceptance, E, VU,DU by at 04/06/2025 1147 User Cabrera Initials Effective Dates Name Provider Type [facility] 01/24/25 - Susan Cavazos, PT [...] Description Service Date Service Provider Modifiers Qty [id number] PT EVAL LOW COMPLEXITY 3 04/06/2025 Susan [...] mg Daily 04/05/2025 -- Route: Oral heparin 90895 units/250 mL (100 units/mL) in 0.45 % [...] 22 [facility] [address], [address] [facility], [address] Please schedule at [phone] VONDA Garcia 04/11/25 08:32 EDT Cosigned by Sushil Dean Jr., MD at 04/19/2025 10:33 AM EDT Associated attestation - Sushil Dean Jr., MD - 04/19/2025 10:33 AM EDT I have reviewed this documentation and agree. * Rosario Hill APRN - 04/10/2025 1:24 PM EDT Images from the original note were not included. [facility] Medicine Services PROGRESS NOTE Patient Name: [...] Date/Time Wound Culture - Swab, Leg, Right [[id number]] (Abnormal) (Susceptibility) Collected: 04/07/252106 Lab Status: Final [...] mg Daily 04/05/2025 -- Route: Oral heparin 47551 units/250 mL (100 units/mL) in 0.45 % [...] 22 [facility] [address] [facility], [address] [facility], [address] Please schedule at [phone] VONDA Garcia 04/10/25 09:01 EDT Cosigned by Sushil Dean Jr., MD at 04/19/2025 10:33 AM EDT Associated attestation - Sushil Dean Jr., MD - 04/19/2025 10:33 AM EDT I have reviewed this documentation and agree. * Carlton Mead MD - 04/10/2025 7:38 AM EDT Images from the original note were not included. INFECTIOUS DISEASE Progress Note Won Dennis 1980 [id number] Date of Consult: 04/10/2025 Admission Date: 04/04/2025 [...] HDS, on Heparin gtt. Currently [facility] has been asked to [...] IRRIGATION; Surgeon: Sushil Dean Jr., MD; Location: [facility]; Service: Orthopedics; Laterality: Right; PLACEMENT OF WOUND VAC Right 04/07/2025 Procedure: WOUND VACUUM ASSISTED CLOSURE; Surgeon: Sushil Dean Jr., MD; Location: [facility]; Service: Orthopedics; Laterality: Right; WOUND CLOSURE [...] Jr., MD, 20 mg at 04/09/25906 heparin 38510 units/250 mL (100 units/mL) in 0.45 % [...] Units Date/Time FL C Arm During Surgery [[id number]] Resulted: 04/07/252137 Updated: 04/07/252137 Narrative: This procedure was auto-finalized with no dictation required. MRI Tibia Fibula Right With & Without Contrast [[id number]] Collected: 04/07/25937 Updated: 04/07/25 100 Narrative: MRI [...] Buenrostro 04/07/2025 9:58 AM EDT Workstation ID: [id number] Impression: Recurrent Right BKA stump abscess/cellulitis- this [...] discussed his disposition with the pharmacist at [facility] today. I will sign off Outpatient orders: 1. Outpatient intravenous antibiotic therapy: Daptomycin 800 mg IV daily to be supplied by [facility] 2. Home health to perform weekly [...] Mead MD 04/10/2025 07:38 EDT * Larisa Hamiltno [facility] - [...] from the original note were not included. [facility] Medicine Services PROGRESS NOTE Patient Name: [...] Date/Time Wound Culture - Swab, Leg, Right [[id number]] (Abnormal) Collected: 04/07/252106 Lab Status: Preliminary result [...] DO 04/09/25 * Larisa Hamilton [facility] [...] -- Admin Instructions: Open Order & Select [facility] Electrolyte Replacement Protocol Algorithm [...] mg Daily 04/05/2025 -- Route: Oral heparin 32435 units/250 mL (100 units/mL) in 0.45 % [...] -- Admin Instructions: Open Order & Select [facility] Electrolyte Replacement Protocol Algorithm [...] radiographs [facility] [address] [facility], [address] [facility], [address] Please schedule at [phone] VONDA Garcia 04/09/25 09:18 EDT Cosigned by Sushil Dean Jr., MD at 04/19/2025 10:33 AM EDT Associated attestation - Sushil Dean Jr., MD - 04/19/2025 10:33 AM EDT I have reviewed this documentation and agree. * Carlton Mead MD - 04/09/2025 8:25 AM EDT Images from the original note were not included. INFECTIOUS DISEASE Progress Note Won Dennis 1980 [id number] Date of Consult: 04/09/2025 Admission Date: 04/04/2025 [...] HDS, on Heparin gtt. Currently [facility] has been asked to [...] Sushil Dean Jr., MD; Location: [facility]; Service: Orthopedics; Laterality: Right; PLACEMENT OF WOUND VAC Right 04/07/2025 Procedure: WOUND VACUUM ASSISTED CLOSURE; Surgeon: Sushil Dean Jr., MD; Location: [facility] OR; Service: Orthopedics; Laterality: Right; History reviewed. [...] MD, 20 mg at 04/08/25 0800 heparin 03485 units/250 mL (100 units/mL) in 0.45 % [...] Units Date/Time FL C Arm During Surgery [[id number]] Resulted: 04/07/252137 Updated: 04/07/252137 Narrative: This procedure was auto-finalized with no dictation required. MRI Tibia Fibula Right With & Without Contrast [[id number]] Collected: 04/07/25 0938 Updated: 04/07/25 1001 Narrative: [...] Chitra 04/07/2025 9:58 AM EDT Workstation ID: [id number] Impression: Recurrent Right BKA stump abscess/cellulitis- this [...] mg IV daily to be supplied by [facility] 2. Home health to perform [...] from the original note were not included. [facility] Medicine Services PROGRESS NOTE Patient Name: [...] Buenrostro 04/07/2025 9:58 AM EDT Workstation ID: [id number] I have personally reviewed the therapy plans: [...] Jason Álvarez, DO 04/08/25 * Hamilton, Larisa, [facility] - [...] -- Admin Instructions: Open Order & Select [facility] Electrolyte Replacement Protocol Algorithm [...] mg Daily 04/05/2025 -- Route: Oral heparin 41130 units/250 mL (100 units/mL) in 0.45 % [...] INFECTIOUS DISEASE Progress Note Won Dennis 1980 [id number] Date of Consult: 04/08/2025 Admission Date: 04/04/2025 [...] HDS, on Heparin gtt. Currently [facility] has been asked to [...] Sushil Dean Jr., MD; Location: [facility]; Service: Orthopedics; Laterality: Right; PLACEMENT OF WOUND VAC Right 04/07/2025 Procedure: WOUND VACUUM ASSISTED CLOSURE; Surgeon: Sushil Dean Jr., MD; Location: [facility] OR; Service: Orthopedics; Laterality: Right; History reviewed. [...] Oral, Q6H PRN, 500 mg at 04/06/25 5004 OR acetaminophen (TYLENOL) 160 MG/5ML oral solution [...] Jr., MD, 20 mg at 04/07/25950 heparin 57490 units/250 mL (100 units/mL) in 0.45 % [...] vancomycin 2750 mg/500 mL 0.9% NS IVPB ([facility]) Ordering Provider: Mario Crowley, [...] Units Date/Time FL C Arm During Surgery [[id number]] Resulted: 04/07/252137 Updated: 04/07/252137 Narrative: This procedure was auto-finalized with no dictation required. MRI Tibia Fibula Right With & Without Contrast [[id number]] Collected: 04/07/25 0938 Updated: 04/07/25 1001 Narrative: [...] Buenrostro 04/07/2025 9:58 AM EDT Workstation ID: [id number] Impression: 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 (Treated by ID in [place] Dr. Harris). Dr. Torres treated him with [...] from the original note were not included. [facility] Medicine Services PROGRESS NOTE Patient Name: [...] Buenrostro 04/07/2025 9:58 AM EDT Workstation ID: [id number] I have personally reviewed the therapy plans: [...] Jason DO Preeti 04/07/25 * Larisa Hamilton, [facility] - [...] INFECTIOUS DISEASE Progress Note Won Dennis 1980 [id number] Date of Consult: 04/07/2025 Admission Date: 04/04/2025 [...] HDS, on Heparin gtt. Currently [facility] has been asked to [...] MD, 20 mg at 04/06/25 0900 heparin 97963 units/250 mL (100 units/mL) in 0.45 % [...] With & Without Contrast - In process [[id number]] Resulted: 04/07/25828 Updated: 04/07/25828 This result has not been signed. Information might be incomplete. MRI Tibia Fibula Right With & Without Contrast [[id number]] Collected: 04/04/252256 Updated: 04/04/253 Narrative: MRI TIBIA [...] represent a small area of phlegmonous change (fdyewh77 image 10) measuring approximately 1.6 cm which [...] MD 04/04/2025 11:00 PM EDT Workstation ID: [id number] Impression: 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 (Treated by ID in [place] Dr. Harris). Dr. Torres treated him with [...] -- Admin Instructions: Open Order & Select [facility] Electrolyte Replacement Protocol Algorithm [...] mg Daily 04/05/2025 -- Route: Oral heparin 02587 units/250 mL (100 units/mL) in 0.45 % [...] -- Admin Instructions: Open Order & Select [facility] Electrolyte Replacement Protocol Algorithm [...] from the original note were not included. [facility] Medicine Services PROGRESS NOTE Patient Name: [...] MD 04/04/2025 11:00 PM EDT Workstation ID: [id number] I have personally reviewed the therapy plans: [...] mg Daily 04/05/2025 -- Route: Oral heparin 78707 units/250 mL (100 units/mL) in 0.45 % [...] -- Admin Instructions: Open Order & Select [facility] Electrolyte Replacement Protocol Algorithm [...] -- Admin Instructions: Open Order & Select [facility] Electrolyte Replacement Protocol Algorithm [...] INFECTIOUS DISEASE follow up. Won Dennis 1980 [id number] Date of Consult: 04/06/2025 Admission Date: 04/04/2025 [...] HDS, on Heparin gtt. Currently [facility] has been asked to [...] MD, 20 mg at 04/06/25 0900 heparin 46147 units/250 mL (100 units/mL) in 0.45 % [...] Tibia Fibula Right With & Without Contrast [[id number]] Collected: 04/04/252256 Updated: 04/04/252302 Narrative: MRI TIBIA [...] represent a small area of phlegmonous change (ugytwv68 image 10) measuring approximately 1.6 cm which [...] MD 04/04/2025 11:00 PM EDT Workstation ID: [id number] Impression: 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 (Treated by ID in [place] Dr. Harris). Dr. Torres treated him with [...] from the original note were not included. [facility] Medicine Services PROGRESS NOTE Patient Name: [...] MD 04/04/2025 11:00 PM EDT Workstation ID: [id number] I have personally reviewed the therapy plans: [...] from the original note were not included. 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 Spoke with [facility]. 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 He [...] was evaluated in the emergency department in [place], was discharged with instructions for follow-up. He [...] mouth Daily. 04/03/2025 Morning Lactobacillus-Inulin ([facility]) capsule Take 200 mg by mouth [...] MD 04/04/2025 11:00 PM EDT Workstation ID: [id number] Assessment: Right BKA infection 44-year-old male with [...] DISEASE CONSULT/INITIAL HOSPITAL VISIT Won Dennis 1980 [id number] Date of Consult: 04/05/2025 Admission Date: 04/04/2025 [...] HDS, on Heparin gtt. Currently [facility] has been asked to [...] Leonora Shepherd MD, 40 mg at 04/04/25 3120 sennosides-docusate (PERICOLACE) 8.6-50 MG per tablet 2 [...] MD, 20 mg at 04/05/25 09 heparin 82467 units/250 mL (100 units/mL) in 0.45 % NaCl infusion, 11 Units/kg/hr, Intravenous, Titrated, Una Perla, PharmD, Last Rate: 14.74 mL/hr at 04/05/25 011, 11 Units/kg/hr at 04/05/25 011 hydroCHLOROthiazide tablet 12.5 mg, 12.5 mg, Oral, Daily, Loenora Shepherd MD, 12.5 mg at 916 HYDROmorphone [...] Leonora Shepherd MD, 10 mg at 04/04/25 8713 Pharmacy to Dose Heparin, , Not Applicable, [...] Tibia Fibula Right With & Without Contrast [[id number]] Collected: 04/04/252256 Updated: 04/04/252302 Narrative: MRI TIBIA [...] represent a small area of phlegmonous change (hhmoki77 image 10) measuring approximately 1.6 cm which [...] MD 04/04/2025 11:00 PM EDT Workstation ID: [id number] Impression: 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 (Treated by ID in [place] Dr. Harris). Dr. Torres treated him with [...] Jr., MD - 04/08/2025 3:51 PM EDT [facility] OPERATIVE REPORT PATIENT NAME: Won Dennis DATE OF : 1980 PREOP DIAGNOSIS: Right Right below-knee amputation infection POSTOP DIAGNOSIS: Same. PROCEDURE: Right Right 83658: Secondary closure below-knee amputation SURGEON: Sushil Dean MD OPERATIVE TEAM: Pinking Machine Operator: Susi Grullon RN Scrub Person: Mary Paredes Scrub Person Extra: Hortencia Toribio Other: Katt Gotti RN; Charis Neville RN ANESTHETIST: Anesthesiologist: Ulises Hoffman MD [employer] ATTENDANT: Stan Casillas CRNA Student Nurse Communication Equipment Repairer: Karol Albert SRNA ANESTHESIA: Choice ESTIMATED [...] CULTURE (Canceled) Sushil Dean Jr., MD 04/08/25 5451 Description: RIGHT LEG DEEP WOUND FOR CULTURE [...] PM EDT [facility], [place] [address] OPERATIVE REPORT PATIENT NAME: Won Dennis DATE OF : 1980 PREOP DIAGNOSIS: Right Right below knee amputation stump infection POSTOP DIAGNOSIS: Same. PROCEDURE: Right Right 27520: Incision and drainage of surgical site infection 95750: Debridement of skin, subcutaneous tissue, muscle 32687: Wound vacuum-assisted closure SURGEON: Sushil Dean MD OPERATIVE TEAM: Pinking Machine Operator: Anum Sanchez RN Scrub Person: Hortencia Toribio; Gerald Ivey CARTON FORMING MACHINE HELPER: Anesthesiologist: Luci Alonso DO ANESTHESIA: General [...] this chart in the absence of a cash applications coordinator. No orders to display RADIOLOGY: [x] [...] is discharging home with outpatient infusion at [facility]. He has an appointment with [facility] at 8:00 am tomorrow. They will do PICC line dressing changes. DEBRA has spoke with Dena at [facility] today multiple times to get [...] to get IV ABX at home with [facility]; however, Medicaid lapsed on 04/08. DEBRA was unaware until this morning that Medicaid has lapsed. Patient explained that he has Medicare A and B. CM spoke with KELLEE and given themhis Medicare number [id number], she sent it to Admission. DEBRA spoke with Kerri, with [facility], and explained that he had Medicare A and B. However, it will not cover home infusion. It will be $64.00 a day out of packet. Patients can go to the Infusion center at [facility], and it will cover the cost as an outpatient. He will need to go there every day for infusion. They will be able to do the patients' PICC line dressing changes and lab work. DEBRA [facility] [facility] can accept patient and start him. He is known for their facility. The Facility will need to run it through his insurance first. CM faxed the orders over to [facility] at [phone]. CM will follow up with them tomorrow at [facility] to make sure they received [...] 04/09/2025 2:51 PM EDT Continued Stay Note [facility] Patient Name: Won Dennis Today's Date: 04/09/2025 Admit Date: 04/04/2025 Plan: Home Discharge Plan Row Name 04/09/25 1311 Plan Plan Home Patient/Family in Agreement with Plan yes Plan Comments CM spoke with patient at bedside today. Wheelchair from [employer] is at bedside. Patient getting PICC line [...] note were not included. Discharge Planning Assessment [facility] Patient Name: Won Dennis Today's Date: [...] Patient/Family Anticipated Services at Transition major case detectiveconfiguration management manager Anticipated family or friend will provide Discharge Needs Assessment Equipment Currently Used at Home glucometer;shower chair;pulse ox;bp cuff;prosthesis;crutches Equipment Needed After Discharge none Discharge Plan Row Name 04/07/25 1144 Plan Plan Home Patient/Family in Agreement with Plan yes Plan Comments CM spoke with patient at bedside today. Patient lives with and his 5 kids in [facility]. 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 He has walker, cane, shower chair, and crutches. He requested a wheelchair for home. CM will order wheelchair through [facility]. He is not current with home health services. PCP is Dr. Jordan. Insurance is [employer] [place]. Patient discharge plan is home with priavte transport. CM will follow for any discharge needs. Final Discharge Disposition Code 01 - home or self-care Continued Care and Services - Admitted Since 04/04/2025 No active coordination exists. Demographic Summary Row Name 04/07/25 1143 General Information Arrived From hospital Preferred Language [place] Functional Status Row Name 04/07/25 1143 Functional [...] CBC Auto Differential (04/11/2025 3:40 AM EDT) [facility] WBC 7.87 3.40 - 10.80 10*3/mm3 04/11/2025 4:02 AM EDT [facility] RBC 4.70 4.14 - 5.80 10*6/mm3 04/11/2025 4:02 AM [facility] Hemoglobin 12.8(L) 13.0 - 17.7 g/dL 04/11/2025 4:02 AM [facility] Hematocrit 40.5 37.5 - 51.0 % 04/11/2025 4:02 AM [facility] MCV 86.2 79.0 - 97.0 fL [facility] MCH 27.2 26.6 - 33.0 pg 04/11/2025 4:02 AM [facility] MCHC 31.6 31.5 - 35.7 g/dL 04/11/2025 4:02 AM [facility] RDW 12.9 12.3 - 15.4 % 04/11/2025 4:02 AM [facility] RDW-SD 40.5 37.0 - 54.0 fl 04/11/2025 4:02 AM [facility] MPV 9.2 6.0 - 12.0 fL 04/11/2025 4:02 AM [facility] Platelets 267 140 - 450 10*3/mm3 04/11/2025 4:02 AM [facility] Neutrophil % 59.5 42.7 - 76.0 % 04/11/2025 4:02 AM [facility] Lymphocyte % 26.3 19.6 - 45.3 % 04/11/2025 4:02 AM [facility] Monocyte % 9.3 5.0 - 12.0 % 04/11/2025 4:02 AM [facility] Eosinophil % 4.1 0.3 - 6.2 % 04/[facility] Basophil % 0.4 0.0 - 1.5 % 04/11/2025 4:[facility] Immature Grans % 0.4 0.0 - 0.5 % 04/11/2025 4:02 AM [facility] Neutrophils, Absolute 4.69 1.70 - 7.00 10*3/mm3 04/11/2025 4:02 AM EDT [facility] Lymphocytes, Absolute 2.07 0.70 - 3.10 10*3/mm3 04/11/2025 4:02 AM EDT [facility] Monocytes, Absolute 0.73 0.10 - 0.90 10*3/mm3 04/11/2025 4:02 AM EDT [facility] Eosinophils, Absolute 0.32 0.00 - 0.40 10*3/mm3 04/11/2025 4:02 AM EDT [facility] Basophils, Absolute 0.03 0.00 - 0.20 10*3/mm3 04/11/2025 4:02 AM EDT [facility] Immature Grans, Absolute 0.03 0.00 - 0.05 10*3/mm3 04/11/2025 4:02 AM EDT [facility] nRBC 0.0 0.0 - 0.2 /100 WBC 04/11/2025 4:02 AM EDT [facility] Blood Venipuncture / Unknown 04/11/2025 3:40 AM EDT 04/11/2025 3:59 AM EDT us Sushil Dean Jr., MD LAB BLOOD ORDERABLES Fi nal Result [facility]
[address] [place] [address], * (ABNORMAL) Comprehensive Metabolic Panel (04/11/2025 3:40 AM EDT) [facility] Signature Glucose 108(H) 65 - 99 mg/dL 04/11/2025 4:19 AM EDT [facility] BUN 12.5 6.0 - 20.0 mg/dL 04/11/2025 4:19 AM EDT [facility] Creatinine 0.68(L) 0.76 - 1.27 mg/dL 04/11/2025 4:19 AM [facility] Sodium 140 136 - 145 mmol/L 04/11/2025 4:19 AM [facility] Potassium 3.8 3.5 - 5.2 mmol/L 04/11/2025 4:19 AM [facility] Chloride 105 98 - 107 mmol/L 04/11/2025 4:19 AM [facility] CO2 28.2 22.0 - 29.0 mmol/L 04/11/2025 4:19 AM [facility] Calcium 8.2(L) 8.6 - 10.5 mg/dL 04/11/2025 4:19 AM [facility] Total Protein 6.1 6.0 - 8.5 g/dL 04/11/2025 4:19 AM [facility] Albumin 3.1(L) 3.5 - 5.2 g/dL 04/11/2025 4:19 AM [facility] ALT (SGPT) 52(H) 1 - 41 U/L 04/11/2025 4:19 AM [facility] AST (SGOT) 40 1 - 40 U/L 04/11/2025 4:19 AM [facility] Alkaline Phosphatase 99 39 - 117 U/L 04/11/2025 4:19 AM [facility] Total Bilirubin 0.2 0.0 - 1.2 mg/dL 04/11/2025 4:19 AM [facility] Globulin 3.0 gm/dL 04/11/2025 4:19 AM [facility] Comment:Calculated Result A/G Ratio 1.0 g/dL 04/11/2025 4:19 AM [facility] BUN/Creatinine Ratio 18.4 7.0 - 25.0 04/11/2025 4:19 AM [facility] Anion Gap 6.8 5.0 - 15.0 mmol/L 04/11/2025 4:19 AM [facility] eGFR 117.5 >60.0 mL/min/1.7 3 04/11/2025 4:19 AM EDT [facility] Blood Venipuncture / Unknown 04/11/2025 3:40 AM EDT 04/11/2025 3:56 AM EDT [facility] - 04/11/2025 4:19 [...] include race as a factor [place] [employer] LAB BLOOD ORDERABLES Final Result [facility]
[address] [place] [address], * (ABNORMAL) CBC Auto Differential (04/10/2025 3:46 AM EDT) WBC 9.60 3.40 - 10.80 10*3/mm3 04/10/2025 3:56 AM EDT [facility] RBC 4.67 4.14 - 5.80 10*6/mm3 04/10/2025 3:56 AM EDT [facility] Hemoglobin 12.9(L) 13.0 - 17.7 g/dL 04/10/2025 3:56 AM EDT [facility] Hematocrit 40.1 37.5 - 51.0 % 04/10/2025 3:56 AM EDT [facility] MCV 85.9 79.0 - 97.0 fL 04/10/2025 3:56 AM EDT [facility] MCH 27.6 26.6 - 33.0 pg 04/10/2025 3:56 AM EDT [facility] MCHC 32.2 31.5 - 35.7 g/dL 04/10/2025 3:[facility] RDW 12.9 12.3 - 15.4 % 04/10/2025 3:56 AM [facility] RDW-SD 40.5 37.0 - 54.0 fl 04/10/2025 3:56 AM [facility] MPV 9.5 6.0 - 12.0 fL 04/10/2025 3:56 AM EDT [facility] Platelets 227 140 - 450 10*3/mm3 04/10/2025 3:56 AM [facility] Neutrophil % 59.1 42.7 - 76.0 % 04/10/2025 3:56 AM [facility] Lymphocyte % 29.0 19.6 - 45.3 % 04/10/2025 3:56 AM [facility] Monocyte % 8.1 5.0 - 12.0 % 04/10/2025 3:56 [facility] Eosinophil % 3.2 0.3 - 6.2 % 04/10/2025 3:56 AM [facility] Basophil % 0.4 0.0 - 1.5 % 04/10/2025 3:56 AM [facility] Immature Grans % 0.2 0.0 - 0.5 % 04/10/2025 3:56 AM [facility] Neutrophils, Absolute 5.67 [...] Final Resul t [facility]
[address] [place] [address], * (ABNORMAL) Basic Metabolic Panel (04/10/2025 3:46 AM EDT) Glucose 125(H) 65 - 99 mg/dL 04/10/2025 4:20 AM EDT [facility] BUN 15.9 6.0 - 20.0 mg/dL 04/10/2025 4:20 AM EDT [facility] Creatinine 0.77 0.76 - 1.27 mg/dL 04/10/2025 4:20 AM EDT [facility] Sodium 137 136 - 145 mmol/L 04/10/2025 4:20 AM EDT [facility] Potassium 3.9 3.5 - 5.2 mmol/L 04/10/2025 4:20 AM EDT [facility] Chloride 102 98 - 107 mmol/L 04/10/2025 4:20 AM EDT [facility] CO2 26.9 22.0 - 29.0 mmol/L 04/10/2025 4:20 AM EDT [facility] Calcium 7.9(L) 8.6 - 10.5 mg/dL 04/10/2025 4:20 AM EDT [facility] BUN/Creatinine Ratio 20.6 7.0 - 25.0 04/10/2025 4:20 AM EDT [facility] Anion Gap 8.1 5.0 - 15.0 mmol/L 04/10/2025 4:20 AM EDT [facility] eGFR 113.2 >60.0 mL/min/1.7 3 04/10/2025 4:20 AM EDT [facility] Blood Venipuncture / Unknown 04/10/2025 3:46 AM EDT 04/10/2025 3:52 AM EDT Narrative [facility] - 04/10/2025 4:20 AM EDT [...] Final Resul t [facility]
[address] [place] [address], * Heparin Anti-Xa (04/10/2025 3:46 AM EDT) Heparin Anti-Xa (UFH) 0.35 0.30 - 0.70 IU/ml 04/10/2025 4:23 AM EDT [facility] Blood Venipuncture / Unknown 04/10/2025 3:46 AM EDT 04/10/2025 3:53 AM EDT Larisa Hamilton [facility] LAB BLOOD ORDERABLES Final R esult [facility]
[address] [place] [address], * Heparin Anti-Xa (04/09/2025 10:05 AM EDT) Pathologist [facility] Heparin Anti-Xa (UFH) 0.36 0.30 - 0.70 IU/ml 04/09/2025 11:12 AM EDT [facility] Blood Venipuncture / Unknown 04/09/2025 10:05 AM EDT 04/09/2025 10:47 AM EDT Larisa Hamilton [facility] LAB BLOOD ORDERABLES Final R esult [facility]
[address] [place] [address], * (ABNORMAL) CBC Auto Differential (04/09/2025 4:18 AM EDT) Pathologist [facility] WBC 11.00(H) 3.40 - 10.80 10*3/mm3 04/09/2025 4:50 AM EDT [facility] RBC [...] - 33.0 pg 04/09/2025 4:50 AM EDT [facility] MCHC 32.2 31.5 - 35.7 g/dL 04/09/2025 4:50 AM EDT [facility] RDW 12.8 12.3 - 15.4 % 04/09/2025 4:50 AM [facility] RDW-SD 39.9 37.0 - 54.0 fl 04/09/2025 4:50 AM [facility] MPV 10.0 6.0 - 12.0 fL 04/09/2025 4:50 AM [facility] Platelets 211 140 - 450 10*3/mm3 04/09/2025 4:[facility] Neutrophil % 74.8 42.7 - 76.0 % 04/09/2025 4:50 AM [facility] Lymphocyte % 15.4(L) 19.6 - 45.3 % 04/09/2025 4:50 AM [facility] Monocyte % 8.5 5.0 - 12.0 % 04/09/2025 4:50 AM [facility] Eosinophil % 0.6 0.3 - 6.2 % 04/09/2025 4:50 AM [facility] Basophil % 0.4 0.0 - 1.5 % 04/09/2025 4:50 AM [facility] Immature Grans % 0.3 0.0 - 0.5 % 04/09/2025 4:50 AM [facility] Neutrophils, Absolute 8.23(H) 1.70 - 7.00 10*3/mm3 04/09/2025 4:50 AM [facility] Lymphocytes, Absolute 1.69 0.70 - 3.10 10*3/mm3 04/09/2025 4:50 AM [facility] Monocytes, Absolute 0.94(H) 0.10 - 0.90 10*3/mm3 04/09/2025 4:[facility] Eosinophils, Absolute 0.07 0.00 - 0.40 10*3/mm3 04/09/2025 4:50 AM [facility] Basophils, Absolute 0.04 0.00 - 0.20 10*3/mm3 04/09/2025 4:50 AM [facility] Immature Grans, Absolute 0.03 0.00 - 0.05 10*3/mm3 04/09/2025 4:50 AM EDT [facility] nRBC 0.0 0.0 - 0.2 /100 WBC 04/09/2025 4:50 AM EDT [facility] Blood Venipuncture / Unknown 04/09/2025 4:18 AM EDT 04/09/2025 4:31 AM EDT Sushil Dean Jr., MD LAB BLOOD ORDERABLES Fi nal Result [facility]
[address] [place] [address], * Heparin Anti-Xa (04/09/2025 4:18 AM EDT) Heparin Anti-Xa (UFH) 0.41 0.30 - 0.70 IU/ml 04/09/2025 4:53 AM EDT [facility] Blood Venipuncture / Unknown 04/09/2025 4:18 AM EDT 04/09/2025 4:31 AM EDT Una LundbergD LAB BLOOD ORDERABLES Final R esult [facility]
[address] [place] [address], * (ABNORMAL) Basic Metabolic Panel (04/09/2025 4:18 [...] 4:18 AM EDT 04/09/2025 4:29 AM EDT [facility] - 04/09/2025 5:33 AM EDT GFR [...] Fi nal Result [facility]
[address] [place] [address], * Wound Culture - Swab, Leg, Right (04/08/2025 3:40 PM EDT) Wound Culture No growth at 3 days ALIZA 04/11/2025 10:40 AM EDT [facility] Gram Stain Few (2+) WBCs seen 04/11/2025 10:40 AM EDT [facility] Gram Stain No organisms seen 04/11/2025 10:40 AM EDT [facility] Swab Structure of right lower limb / Unknown 04/08/2025 3:40 PM EDT 04/08/2025 8:05 PM EDT Sushil Dean Jr., MD MICROBIOLOGY - GENERAL ORDERABLES Final Result Performing Organization Address City/[facility]/ZIP Co de Phone Number [facility]
[address] [place] [address], [facility]
[address] [place] [address], * Anaerobic Culture - Swab, Leg, Right (04/08/2025 3:40 PM EDT) Pathologist [facility] Anaerobic Culture No anaerobes isolated at 5 days ALIZA 04/13/2025 7:24 AM EDT [facility] Swab Structure of right lower limb / Unknown 04/08/2025 3:40 PM EDT 04/08/2025 8:05 PM EDT Sushil Dean Jr., MD MICROBIOLOGY - GENERAL ORDERABLES Final Result [facility]
[address] [place] [address], * Scan Slide (04/08/2025 8:41 AM EDT) [...] Final R esult [facility]
[address] [place] [address], * (ABNORMAL) CBC Auto Differential (04/08/2025 8:41 AM EDT) WBC 10.07 3.40 - 10.80 10*3/mm3 04/08/2025 11:02 AM EDT [facility] RBC 5.01 4.14 - 5.80 10*6/mm3 04/08/2025 11:02 AM EDT [facility] Hemoglobin 14.0 13.0 - 17.7 g/dL 04/08/2025 11:02 AM EDT [facility] Hematocrit 42.7 37.5 - 51.0 % 04/08/2025 11:02 AM EDT [facility] MCV 85.2 79.0 - 97.0 fL 04/08/2025 11:02 AM EDT [facility] MCH 27.9 26.6 - 33.0 pg 04/08/2025 11:02 AM EDT [facility] MCHC 32.8 31.5 - 35.7 g/dL 04/08/2025 11:02 AM EDT [facility] RDW 12.6 12.3 - 15.4 % 04/08/2025 11:02 AM EDT [facility] RDW-SD 38.9 37.0 - 54.0 fl 04/08/2025 11:02 AM [facility] MPV 11.0 6.0 - 12.0 fL 04/08/2025 11:02 AM [facility] Platelets 118(L) 140 - 450 10*3/mm3 04/08/2025 11:02 AM [facility] Neutrophil % 85.1(H) 42.7 - 76.0 % 04/08/2025 11:02 AM [facility] Lymphocyte % 9.3(L) 19.6 - 45.3 % 04/08/2025 11:02 AM [facility] Monocyte % 4.6(L) 5.0 - 12.0 % 04/08/2025 11:02 AM [facility] Eosinophil % 0.3 0.3 - 6.2 % 04/08/2025 11:02 AM [facility] Basophil % 0.2 0.0 - 1.5 % 04/08/2025 11:02 AM [facility] Immature Grans % 0.5 0.0 - 0.5 % 04/08/2025 11:02 AM [facility] Neutrophils, Absolute 8.57(H) 1.70 - 7.00 10*3/mm3 04/08/2025 11:02 AM [facility] Lymphocytes, Absolute 0.94 0.70 - 3.10 10*3/mm3 04/08/2025 11:02 AM [facility] Monocytes, Absolute 0.46 0.10 - 0.90 10*3/mm3 04/08/2025 11:02 AM [facility] Eosinophils, Absolute 0.03 0.00 - 0.40 10*3/mm3 04/08/2025 11:02 AM [facility] Basophils, Absolute 0.02 0.00 - 0.20 10*3/mm3 04/08/2025 11:02 AM [facility] Immature Grans, Absolute 0.05 0.00 - 0.05 10*3/mm3 04/08/2025 11:02 AM EDT [facility] nRBC 0.0 0.0 - 0.2 /100 WBC 04/08/2025 11:02 AM EDT [facility] Blood Venipuncture / Unknown 04/08/2025 8:41 AM EDT 04/08/2025 9:10 AM EDT Una Perla PharmD LAB BLOOD ORDERABLES Final R esult [facility]
[address] [place] [address], * (ABNORMAL) Basic Metabolic Panel (04/08/2025 8:41 [...] AM EDT 04/08/2025 9:09 AM EDT Narrative [facility] - 04/08/2025 9:51 AM EDT [...] ORDERABLES Fi nal Result Performing Organization Address City/[facility]/ZIP Co de Phone Number [facility]
[address] [place] [address], * Heparin Anti-Xa (04/08/2025 8:41 AM EDT) Heparin Anti-Xa (UFH) 0.33 0.30 - 0.70 IU/ml 04/08/2025 9:40 AM EDT [facility] Blood Venipuncture / Unknown 04/08/2025 8:41 AM EDT 04/08/2025 9:10 AM EDT us Sushil Dean Jr., MD LAB BLOOD ORDERABLES Fi nal Result [facility]
[address] [place] [address], * FL C Arm During Surgery (04/07/2025 9:32 PM EDT) Narrative SYSTEMGENERATED, DOCUMENTATION - 04/07/2025 9:38 PM EDT This procedure was auto-finalized with no dictation required. us Sushil Dean Jr., MD IMG FLUOROSCOPY ORDERAB LES Final Result * Wound Culture - Swab, Leg, Right (04/07/2025 9:14 PM EDT) Wound Culture No growth at 3 days ALIZA 04/11/2025 10:40 AM EDT [facility] Gram Stain Occasional WBCs seen 04/11/2025 10:40 AM EDT [facility] Gram Stain No organisms seen 04/11/2025 10:40 AM EDT [facility] Swab Structure of right lower limb / Unknown Collection / Unknown 04/07/2025 9:14 PM EDT 04/08/2025 4:36 AM EDT us Sushil Dean Jr., MD MICROBIOLOGY - GENERAL ORDERABLES Final Result Performing Organization Address City/[facility]/ZIP Co de Phone Number [facility]
[address] [place] [address], [facility]
[address] [place] [address], * Anaerobic Culture - Swab, Leg, Right (04/07/2025 9:14 PM EDT) Anaerobic Culture No anaerobes isolated at 5 days ALIZA 04/13/2025 7:21 AM EDT [facility] Swab Structure of right lower limb / Unknown Collection / Unknown 04/07/2025 9:14 PM EDT 04/08/2025 4:36 AM EDT us Sushil Dean Jr., MD MICROBIOLOGY - GENERAL ORDERABLES Final Result [facility]
[address] [place] [address], * Anaerobic Culture - Tissue, Leg (04/07/2025 9:13 PM EDT) Pathologist [facility] Anaerobic Culture No anaerobes isolated at 5 days ALIZA 04/13/2025 7:21 AM EDT [facility] Tissue Lower limb structure / Unknown Collection / Unknown 04/07/2025 9:13 PM EDT 04/08/2025 4:54 AM EDT Jason Álvarez DO MICROBIOLOGY - GENERAL ORDERABLE S Final Result [facility]
[address] [place] [address], * Tissue / Bone Culture - Tissue, Leg, Right (04/07/2025 9:13 PM EDT) [facility] Tissue Culture No growth at 3 days ALIZA 04/11/2025 10:36 AM EDT [facility] Gram Stain Rare (1+) WBCs seen 04/11/2025 10:36 AM EDT [facility] Gram Stain No organisms seen 04/11/2025 10:36 AM EDT [facility] Tissue Structure of right lower limb / Unknown 04/07/2025 9:13 PM EDT 04/08/2025 4:54 AM EDT Sushil Dean Jr., MD MICROBIOLOGY - GENERAL ORDERABLES Final Result [facility]
[address] [place] [address], [facility]
[address] [place] [address], * (ABNORMAL) Wound Culture - Swab, Leg, Right (04/07/2025 9:07 PM EDT) Pathologist [facility] Wound Culture Light growth (2+) Staphylococcus aureus, MRSA(A) ALIZA 04/10/2025 10:38 AM EDT [facility] Comment: Methicillin resistant Staphylococcus [...] MD MICROBIOLOGY - GENERAL ORDERABLES Final Result [facility]
[address] [place] [address], [place] [phone] [facility]
[address] [place] [address], [place] [phone] * Anaerobic Culture - Swab, Leg, Right (04/07/2025 9:07 PM EDT) Anaerobic Culture No anaerobes isolated at 5 days ALIZA 04/13/2025 7:21 AM EDT [facility] Swab Structure of right lower limb / Unknown Collection / Unknown 04/07/2025 9:07 PM EDT 04/08/2025 4:36 AM EDT us Sushil Dean Jr., MD MICROBIOLOGY - GENERAL ORDERABLES Final Result [facility]
[address] [place] [address], * Heparin Anti-Xa (04/07/2025 9:10 AM EDT) [facility] Heparin Anti-Xa (UFH) 0.30 0.30 - 0.70 IU/ml 04/07/2025 10:12 AM EDT [facility] Blood Venipuncture / Unknown 04/07/2025 9:10 AM EDT 04/07/2025 9:38 AM EDT Una Perla PharmD LAB BLOOD ORDERABLES Final R esult [facility]
[address] [place] [address], * (ABNORMAL) CBC Auto Differential (04/07/2025 9:10 AM EDT) [facility] WBC 8.63 3.40 - 10.80 10*3/mm3 04/07/2025 9:50 AM EDT [facility] RBC 5.23 4.14 - 5.80 10*6/mm3 04/07/2025 9:50 AM EDT [facility] Hemoglobin 14.7 13.0 - 17.7 g/dL 04/07/2025 9:50 AM EDT [facility] Hematocrit 44.8 37.5 - 51.0 % 04/07/2025 9:50 AM EDT [facility] MCV 85.7 79.0 - 97.0 fL 04/07/2025 9:50 AM EDT [facility] MCH 28.1 26.6 - 33.0 pg 04/07/2025 9:50 AM EDT [facility] MCHC 32.8 31.5 - 35.7 g/dL 04/07/2025 9:50 AM EDT [facility] RDW 12.8 12.3 - 15.4 % 04/07/2025 9:50 AM [facility] RDW-SD 39.9 37.0 - 54.0 fl 04/07/2025 9:50 AM [facility] MPV 10.8 6.0 - 12.0 fL 04/07/2025 9:50 AM [facility] Platelets 149 140 - 450 10*3/mm3 04/07/2025 9:50 AM [facility] Neutrophil % 66.7 42.7 - 76.0 % 04/07/2025 9:50 AM [facility] Lymphocyte % 20.5 19.6 - 45.3 % 04/07/2025 9:50 AM [facility] Monocyte % 9.8 5.0 - 12.0 % 04/07/2025 9:50 AM [facility] Eosinophil % 2.1 0.3 - 6.2 % 04/07/2025 9:50 AM [facility] Basophil % 0.3 0.0 - 1.5 % 04/07/2025 9:50 AM [facility] Immature Grans % 0.6(H) 0.0 - 0.5 % 04/07/2025 9:50 AM [facility] Neutrophils, Absolute 5.75 1.70 - 7.00 10*3/mm3 04/07/2025 9:50 AM [facility] Lymphocytes, Absolute 1.77 0.70 - 3.10 10*3/mm3 04/07/2025 9:50 AM [facility] Monocytes, Absolute 0.85 0.10 - 0.90 10*3/mm3 04/07/2025 9:50 AM [facility] Eosinophils, Absolute 0.18 0.00 - 0.40 10*3/mm3 04/07/2025 9:50 AM [facility] Basophils, Absolute 0.03 0.00 - 0.20 10*3/mm3 04/07/2025 9:50 AM [facility] Immature Grans, Absolute 0.05 0.00 - 0.05 10*3/mm3 04/07/2025 9:50 AM EDT [facility] nRBC 0.0 0.0 - 0.2 /100 WBC 04/07/2025 9:50 AM EDT [facility] Blood Venipuncture / Unknown 04/07/2025 9:10 AM EDT 04/07/2025 9:38 AM EDT Jasonalfonso Álvarez LAB BLOOD ORDERABLES Final Resul t [facility]
[address] [place] [address], * (ABNORMAL) Basic Metabolic Panel (04/07/2025 9:10 [...] - 10.5 mg/dL 04/07/2025 10:19 AM EDT [facility] BUN/Creatinine Ratio 17.0 7.0 - 25.0 04/07/2025 10:19 AM EDT [facility] Anion Gap 9.2 5.0 - 15.0 mmol/L 04/07/2025 10:19 AM EDT [facility] eGFR 113.2 >60.0 mL/min/1.7 3 04/07/2025 10:19 AM EDT [facility] Blood [...] Álvarez LAB BLOOD ORDERABLES Final Resul t [facility] LABORATORY
[address] [place] [address], * MRI Tibia Fibula Right With & [...] [place] 04/07/2025 9:58 AM EDT Workstation ID: [id number] Narrative 04/07/2025 9:58 AM EDT MRI TIBIA [...] [place] 04/07/2025 9:58 AM EDT Workstation ID: [id number] Sushil Dean Jr., MD IM MRI ORDERABLES Mary Beth l Result * Heparin Anti-Xa (04/07/2025 1:42 AM EDT) [facility] Heparin Anti-Xa (UFH) 0.38 0.30 - 0.70 IU/ml 04/07/2025 2:14 AM EDT [facility] Blood Venipuncture / Unknown 04/07/2025 1:42 AM EDT 04/07/2025 1:54 AM EDT Chelsie Turpin [facility] LAB BLOOD ORDERABLES Final R esult [facility]
[address] [place] [address], * Heparin Anti-Xa (04/06/2025 7:16 PM EDT) [facility] Heparin Anti-Xa (UFH) 0.33 0.30 - 0.70 IU/ml 04/06/2025 7:50 PM EDT [facility] Blood Venipuncture / Unknown 04/06/2025 7:16 PM EDT 04/06/2025 7:35 PM EDT Cherri Beatty RP LAB BLOOD ORDERABLES Final Res ult Performing Organization Address City/[facility]/ZIP Co de Phone Number [facility]
[address] [place] [address], * Potassium (04/06/2025 7:16 PM EDT) Potassium 4.0 3.5 - 5.2 mmol/L 04/06/2025 7:53 PM EDT [facility] Blood Venipuncture / Unknown 04/06/2025 7:16 PM EDT 04/06/2025 7:35 PM EDT Jason Álvarez DO LAB BLOOD ORDERABLES Final Resul t Performing Organization Address [facility] de Phone Number [facility]
[address] [place] [address], * (ABNORMAL) Heparin Anti-Xa (04/06/2025 12:36 PM EDT) Heparin Anti-Xa (UFH) 0.24(L) 0.30 - 0.70 IU/ml 04/06/2025 1:23 PM EDT [facility] Blood Venipuncture / Unknown 04/06/2025 12:36 PM EDT 04/06/2025 1:07 PM EDT Una LundbergD LAB BLOOD ORDERABLES Final R esult Performing Organization Address [facility] Co de Phone Number [facility]
[address] [place] [address], * (ABNORMAL) Heparin Anti-Xa (04/06/2025 3:42 AM EDT) Heparin Anti-Xa (UFH) 0.25(L) 0.30 - 0.70 IU/ml 04/06/2025 5:30 AM EDT [facility] Blood Venipuncture / Unknown 04/06/2025 3:42 AM EDT 04/06/2025 4:59 AM EDT Chelsie Turpin [facility] LAB BLOOD ORDERABLES Final R esult [facility]
[address] [place] [address], * (ABNORMAL) Basic Metabolic Panel (04/06/2025 3:42 [...] 3:42 AM EDT 04/06/2025 5:20 AM EDT [facility] LABORATORY - 04/06/2025 5:59 [...] Final Resul t [facility]
[address] [place] [address], * (ABNORMAL) CBC Auto Differential (04/06/2025 3:41 [...] 79.0 - 97.0 fL 04/06/2025 5:04 AM [facility] MCH 27.4 26.6 - 33.0 pg 04/06/2025 5:04 AM [facility] MCHC 31.8 31.5 - 35.7 g/dL 04/06/2025 5:04 AM [facility] RDW 12.8 12.3 - 15.4 % 04/06/2025 5:04 AM [facility] RDW-SD 40.0 37.0 - 54.0 fl 04/06/2025 5:04 AM [facility] MPV 11.7 6.0 - 12.0 fL 04/06/2025 5:04 AM [facility] Platelets 115(L) 140 - 450 10*3/mm3 04/06/2025 5:04 AM [facility] Neutrophil % 65.3 42.7 - 76.0 % 04/06/2025 5:04 AM [facility] Lymphocyte % 20.5 19.6 - 45.3 % 04/06/2025 5:04 AM [facility] Monocyte % 11.8 5.0 - 12.0 % 04/06/2025 5:04 AM [facility] Eosinophil % 1.8 0.3 - 6.2 % 04/06/2025 5:04 AM [facility] Basophil % 0.3 0.0 - 1.5 % 04/06/2025 5:04 AM [facility] Immature Grans % 0.3 0.0 - 0.5 % 04/06/2025 5:04 AM [facility] Neutrophils, Absolute 7.09(H) 1.70 - 7.00 10*3/mm3 04/06/2025 5:04 AM [facility] Lymphocytes, Absolute 2.23 0.70 - 3.10 10*3/mm3 04/06/2025 5:04 AM [facility] Monocytes, Absolute 1.28(H) [...] ORDERABLES Final Resul t Performing Organization Address City/[facility]/ZIP Co de Phone Number [facility]
[address] [place] [address], [place] [phone] * Heparin Anti-Xa (04/05/2025 8:43 PM EDT) [facility] Heparin Anti-Xa (UFH) 0.38 0.30 - 0.70 IU/ml 04/05/2025 9:09 PM EDT [facility] Blood Venipuncture / Unknown 04/05/2025 8:43 PM EDT 04/05/2025 8:55 PM EDT us Cherri Beatty [facility] LAB BLOOD ORDERABLES Final Res ult Performing Organization Address City/[facility]/ZIP Co de Phone Number [facility]
[address] [place] [address], [place] [phone] * CK (04/05/2025 12:15 PM EDT) Pathologist [facility] Creatine Kinase 140 20 - 200 U/L 04/05/2025 1:31 PM EDT [facility] Blood Venipuncture / Unknown 04/05/2025 12:15 PM EDT 04/05/2025 1:03 PM EDT Carlton Mead MD LAB BLOOD ORDERABLES Final R esult Performing Organization Address City/[facility]/ZIP Co de Phone Number [facility]
[address] [place] [address], * (ABNORMAL) Heparin Anti-Xa (04/05/2025 12:15 PM EDT) Heparin Anti-Xa (UFH) 0.17(L) 0.30 - 0.70 IU/ml 04/05/2025 1:21 PM EDT [facility] Blood Venipuncture / Unknown 04/05/2025 12:15 PM EDT 04/05/2025 1:04 PM EDT Una Perla PharmD LAB BLOOD ORDERABLES Final R esult [facility]
[address] [place] [address], * (ABNORMAL) aPTT (04/05/2025 3:54 AM EDT) [...] Final R esult [facility]
[address] [place] [address], * Heparin Anti-Xa (04/05/2025 3:54 AM EDT) Pathologist [facility] Heparin Anti-Xa (UFH) 0.30 0.30 - 0.70 IU/ml 04/05/2025 4:32 AM EDT [facility] Blood Venipuncture / Unknown 04/05/2025 3:54 AM EDT 04/05/2025 4:15 AM EDT Una [email or web address] LAB BLOOD ORDERABLES Final R esult Performing Organization Address City/[facility]/ZIP Co de Phone Number [facility]
[address] [place] [address], * (ABNORMAL) CBC Auto Differential (04/05/2025 3:54 [...] - 33.0 pg 04/05/2025 4:20 AM EDT [facility] MCHC 32.8 31.5 - 35.7 g/dL 04/05/2025 4:20 AM [facility] RDW 12.9 12.3 - 15.4 % 04/05/2025 4:20 AM [facility] RDW-SD 39.7 37.0 - 54.0 fl 04/05/2025 4:20 AM [facility] MPV 10.2 6.0 - 12.0 fL 04/05/2025 4:20 AM [facility] Platelets 160 140 - 450 10*3/mm3 04/05/2025 4:20 AM [facility] Neutrophil % 73.5 42.7 - 76.0 % 04/05/2025 4:20 AM [facility] Lymphocyte % 14.0(L) 19.6 - 45.3 % 04/05/2025 4:20 AM [facility] Monocyte % 11.0 5.0 - 12.0 % 04/05/2025 4:20 AM [facility] Eosinophil % 0.8 0.3 - 6.2 % 04/05/2025 4:20 AM [facility] Basophil % 0.3 0.0 - 1.5 % 04/05/2025 4:20 AM [facility] Immature Grans % 0.4 0.0 - 0.5 % 04/05/2025 4:20 AM [facility] Neutrophils, Absolute 8.23(H) 1.70 - 7.00 10*3/mm3 04/05/2025 4:20 AM [facility] Lymphocytes, Absolute 1.56 0.70 - 3.10 10*3/mm3 04/05/2025 4:20 AM [facility] Monocytes, Absolute 1.23(H) 0.10 - 0.90 10*3/mm3 04/05/2025 4:20 AM [facility] Eosinophils, Absolute 0.09 0.00 - 0.40 10*3/mm3 04/05/2025 4:20 AM [facility] Basophils, Absolute 0.03 [...] Final R esult [facility]
[address] [place] [address], * (ABNORMAL) Basic Metabolic Panel (04/05/2025 3:54 AM EDT) Glucose 152(H) 65 - 99 mg/dL 04/05/2025 4:40 AM EDT [facility] BUN 17.3 6.0 - 20.0 mg/dL 04/05/2025 4:40 AM EDT [facility] Creatinine 0.92 0.76 [...] - 29.0 mmol/L 04/05/2025 4:40 AM EDT [facility] Calcium 7.8(L) 8.6 - 10.5 mg/dL 04/05/2025 4:40 AM EDT [facility] BUN/Creatinine Ratio 18.8 7.0 - 25.0 04/05/2025 4:40 AM EDT [facility] Anion Gap 9.0 5.0 - 15.0 mmol/L 04/05/2025 4:40 AM EDT [facility] eGFR 105.2 >60.0 mL/min/1.7 3 04/05/2025 4:40 AM EDT [facility] Blood Venipuncture / Unknown 04/05/2025 3:54 AM EDT 04/05/2025 4:15 AM EDT [facility] LABORATORY - 04/05/2025 4:40 [...] MD LAB BLOOD ORDERABLES Final Re sult [facility]
[address] [place] [address], * (ABNORMAL) aPTT (04/05/2025 12:18 AM EDT) PTT 33.6(L) 60.0 - 90.0 seconds 04/05/2025 12:53 AM EDT [facility] Blood Venipuncture / Unknown 04/05/2025 12:18 AM EDT 04/05/2025 12:37 AM EDT [facility] LABORATORY - 04/05/2025 12:53 AM EDT PTT = The equivalent PTT values for the therapeutic range of heparin levels at 0.3 to 0.5 U/ml are 60 to 70 seconds. Truist PharmD LAB BLOOD ORDERABLES Final R esult Performing Organization Address City/[facility]/ZIP Co de Phone Number [facility]
[address] [place] [address], * (ABNORMAL) Protime-INR (04/05/2025 12:18 AM EDT) Protime 15.9(H) 12.2 - 15.3 Seconds 04/05/2025 12:53 AM EDT [facility] INR 1.19(H) 0.89 - 1.12 04/05/2025 12:53 AM EDT [facility] Blood Venipuncture / Unknown 04/05/2025 12:18 AM EDT 04/05/2025 12:37 AM EDT Truist PharmD LAB BLOOD ORDERABLES Final R esult Performing Organization Address [facility] Co de Phone Number [facility]
[address] [place] [address], * Heparin Anti-Xa (04/05/2025 12:18 AM EDT) Pathologist [facility] Heparin Anti-Xa (UFH) 0.39 0.30 - 0.70 IU/ml 04/05/2025 12:54 AM EDT [facility] Blood Venipuncture / Unknown 04/05/2025 12:18 AM EDT 04/05/2025 12:37 AM EDT Truist PharmD LAB BLOOD ORDERABLES Final R esult Performing Organization Address City/[facility]/ZIP Co de Phone Number [facility]
[address] [place] [address], * MRI Tibia Fibula Right With & [...] MD 04/04/2025 11:00 PM EDT Workstation ID: [id number] Narrative 04/04/2025 11:00 PM EDT MRI TIBIA [...] MD 04/04/2025 11:00 PM EDT Workstation ID: [id number] Leonora Shepherd MD IMG MRI ORDERABLES Final Resu lt * POC Creatinine (04/04/2025 2:49 PM EDT) Creatinine 1.10 0.60 - 1.30 mg/dL 04/07/2025 7:14 PM EDT [facility] Comment:Serial Number: [id number]: [id number] Venous Blood 04/04/2025 2:49 PM EDT 04/07/2025 7:14 PM EDT Jason Álvarez DO POINT OF CARE TEST ORDERABLES Fi nal Result [facility]
[address] [place] [address], * (ABNORMAL) CBC Auto Differential (04/04/2025 2:47 PM EDT) [facility] WBC 12.72(H) 3.40 - 10.80 10*3/mm3 [...] - 15.4 % 04/04/2025 2:56 PM EDT [facility] RDW-SD 40.3 37.0 - [...] - 45.3 % 04/04/2025 2:56 PM EDT [facility] Monocyte % 11.2 5.0 - 12.0 % 04/04/2025 2:56 PM EDT [facility] Eosinophil % 0.4 0.3 - 6.2 % 04/04/2025 2:56 PM EDT [facility] Basophil % 0.2 0.0 - 1.5 % 04/04/2025 2:56 PM EDT [facility] Immature Grans % 0.2 0.0 - 0.5 % 04/04/2025 2:56 PM EDT [facility] Neutrophils, Absolute 9.52(H) 1.70 - 7.00 10*3/mm3 04/04/2025 2:56 PM EDT [facility] Lymphocytes, Absolute 1.66 0.70 - 3.10 10*3/mm3 04/04/2025 2:56 PM EDT [facility] Monocytes, Absolute 1.43(H) 0.10 - 0.90 10*3/mm3 04/04/2025 2:56 PM EDT [facility] Eosinophils, Absolute 0.05 0.00 - 0.40 10*3/mm3 04/04/2025 2:56 PM EDT [facility] Basophils, Absolute [...] Fin al Result [facility]
[address] [place] [address], * (ABNORMAL) C-reactive Protein (04/04/2025 2:47 PM EDT) C-Reactive Protein 8.57(H) 0.00 - 0.50 mg/dL 04/04/2025 3:26 PM EDT [facility] Blood Venipuncture / Unknown 04/04/2025 2:47 PM EDT 04/04/2025 2:52 PM EDT [facility] BLOOD ORDERABLES Fin al Result Performing Organization Address City/[facility]/ZIP Co de Phone Number [facility]
[address] [place] [address], * (ABNORMAL) Sedimentation Rate (04/04/2025 2:47 PM EDT) Pathologist [facility] Sed Rate 51(H) 0 - 15 mm/hr 04/04/2025 3:06 PM EDT [facility] Blood Venipuncture / Unknown 04/04/2025 2:47 PM EDT 04/04/2025 2:52 PM EDT [facility]ocathy [facility]seyS[facility] LAB BLOOD ORDERABLES Fin al Result Performing Organization Address City/[facility] Co de Phone Number [facility]
[address] [place] [address], * Comprehensive Metabolic Panel (04/04/2025 2:47 PM [...] - 10.5 mg/dL 04/04/2025 3:26 PM T [facility] Total Protein 7.3 6.0 - 8.5 g/dL 04/04/2025 3:26 PM EDT [facility] Albumin 4.1 3.5 - 5.2 g/dL 04/04/2025 3:26 PM T [facility] ALT (SGPT) 26 1 - 41 U/L 04/04/2025 3:26 PM [facility] AST (SGOT) 25 1 - 40 U/L 04/04/2025 3:26 PM T [facility] Alkaline Phosphatase 106 39 - 117 U/L 04/04/2025 3:26 PM T [facility] Total Bilirubin 1.0 0.0 - 1.2 mg/dL 04/04/2025 3:26 PM T [facility] Globulin 3.2 gm/dL 04/04/2025 3:26 PM [facility] Comment:Calculated Result A/G Ratio 1.3 g/dL 04/04/2025 3:26 PM [facility] BUN/Creatinine Ratio 19.5 7.0 - 25.0 04/04/2025 3:26 PM [facility] Anion Gap 10.7 5.0 - 15.0 mmol/L 04/04/2025 3:26 PM [facility] eGFR 102.5 >60.0 mL/min/1.7 3 04/04/2025 3:26 PM [facility] Blood Venipuncture / Unknown 04/04/2025 2:47 PM EDT 04/04/2025 2:52 PM EDT [facility] - 04/04/2025 3:26 PM EDT [...] Fin al Result [facility]
[address] [place] [address], documented in this encounter Visit Diagnoses Diagnosis [...] BPA Driven Protocol Open Order & [facility] Electrolyte Replacement Protocol Algorithm [...] BPA Driven Protocol Open Order & [facility] Electrolyte Replacement Protocol Algorithm [...] KELL)[id number] (Given - Provider: Anahy Marcelino, SENIOR POLICY ANALYST)[id number] (Canceled Entry - Provider: Anahy Marcelino SENIOR POLICY ANALYST - Comment: previously given) 0837 (Given - [...] Continuous Medication Order 04/09/2025 04/10/2025 04/11/2025 heparin [id number] units/250 mL (100 units/mL) in 0.45 % [...] BPA Driven Protocol Open Order & [facility] Electrolyte Replacement Protocol Algorithm [...] documented as of this encounter Care Teams Practice Or Student Teacher Relationship Specialty Start Date End Date Provider, [place] [address] PCP - General 05/09/23 documented as of this encounter
--- OUTSIDE RECORDS SUMMARY | 2025-04-07 20:36 | XMS_ITS | Encounter Summary ---
Author Organization [facility] Address [address] [place] [address] Care Team Providers Care Software Qa Manager Name Role Phone Provider, No Known Primary Care Provider Unavail able Reason for Visit * Auth/Cert Specialty Diagnoses / Procedures Referred By Bulmaro muniz Referred To Contact Diagnoses Right BKA infection Referral ID Status Reason Start Date Expiration Date Visits Re quested Visits Authorized [id number] 1 1 Encounter Details Date Type Department Care Team (Late st Contact Info) Description 04/07/2025 8:36 PM EDT Anesthesia Event [facility] OR [address] [place] [address] Luci Alonso DO [address] [place] [address] Anesthesia Record Procedure Summary Procedure Name Responsible [...] = 0.6 oz pur e alcohol) [facility] Utilities Answer Date Recorded In the past 12 months has [employer], gas, oil, or water [employer] threatened to shut off services in your [...] PACU on O2NC, breathing comfortably. Report to ELECTRONIC MAINTENANCE SUPERVISOR at bedside. VSS. * Anesthesia Procedure Notes [...] Musculoskeletal Abdominal Substance History - negative use DEEP FRYER ASSEMBLER Other ROS/Med Hx Other: Eliquis 04/04/25 Hgb [...] been obtained with: patient. Plan discussed with MANAGER APPLIED. CODE STATUS: Code Status (Patient has no [...] Alonso DO - 04/07/2025 8:44 PM EDT Luic Alonso DO 04/07/2025 8:45 PM Airway Reason: [...] documented as of this encounter Care Teams Software Qa Manager Relationship Specialty Start Date End Date Provider, No Known [facility] [place] [address] PCP - General 05/09/23 documented as of this encounter
--- OUTSIDE RECORDS SUMMARY | 2025-04-08 14:45 | XMS_ITS | Encounter Summary ---
[facility] Address [address] [place] [address] Care Team Providers Care Medical Staffing Coordinator Name Role Phone Provider, No Known Primary Care Provider Unavail able Reason for Visit * Reason Comments Leg Swelling * Auth/Cert Specialty Diagnoses / Procedures Referred By Contac t Referred To Contact Diagnoses Right BKA infection Referral ID Status Reason Start Date Expiration Date Visits Re quested Visits Authorized [id number] 1 1 Encounter Details Date Type Department Care Team (Late st Contact Info) Description 04/08/2025 2:45 PM EDT - 04/08/2025 4:04 PM EDT Surgery [facility] OR [address] [place] [address] Sushil Dean Jr., MD [address] [place] [address] [address] [id number] LEG DEBRIDEMENT AND IRRIGATION Social History Tobacco Use Types Packs/Day Years Used Date Smoking Tobacco: Never Smokeless Tobacco: Never Tobacco Cessation:Counseling Given: Not Answered Alcohol Use Standard Drinks/Week Comments Not Currently 0 (1 standard drink = 0.6 oz pur e alcohol) [facility] Utilities Answer Date Recorded In the past 12 months has [employer] electric, gas, oil, or water company [...] or training? Not on file Preferred Language Angolan 04/07/2025 Sex and Gender Information Value Date [...] 2:25 PM EDT Cherri Grimm RN * [place] Suicide Severity Rating Scale (Screener/Recent Self-Report) Question [...] Date/Time Wound Culture - Swab, Leg, Right [[id number]] (Abnormal) (Susceptibility) Collected: 04/07/252106 Lab Status: Final [...] Units Date/Time FL C Arm During Surgery [[id number]] Resulted: 04/07/252137 Updated: 04/07/252137 Narrative: This procedure was auto-finalized with no dictation required. MRI Tibia Fibula Right With & Without Contrast [[id number]] Collected: 04/07/25 0938 Updated: 04/07/25 1001 Narrative: [...] Buenrostro 04/07/2025 9:58 AM EDT Workstation ID: [id number] MRI Tibia Fibula Right With & Without Contrast [[id number]] Collected: 04/04/252256 Updated: 04/04/252302 Narrative: MRI TIBIA [...] represent a small area of phlegmonous change ([id number] image 10) measuring approximately 1.6 cm which [...] MD 04/04/2025 11:00 PM EDT Workstation ID: [id number] Pending Labs Order Current Status Fungus Culture [...] Male) Date of 1980 Social Security Number [id number] [place] [address] [place] [address] Latter Day Unknown Marital Status Unknown Admission Date 04/04/2025 Admission Type Emergency Admitting Provider Jadyn Richardson DO Attending Provider Jadyn Richardson DO Department, Room/Bed [facility] 5G, S565/1 Discharge Date Discharge Disposition Discharge [...] Group [place] [id number] Payor Plan Address Payor Plan Phone Number Payor Plan Fax Number Effective Dates [employer] [address] [address] 08/10/2023 - None Entered [facility] [address] Subscriber Name Subscriber Date Member ID WON DENNIS 1980 [id number] Emergency Contacts Humid System Operator (Rel.) Home Phone Work Phone Mobile Phone Avril Dennis (Spouse) -- -- [phone] Robert Hackett (Relative) -- -- [phone] [facility] 5G [address] [facility] [address] Patient: ROOM: [facility] Won Dennis [address] [facility] [place] [address] : 1980 SSN: [id number] Sex: M PCP: Provider, No Known Emergency Contact Information Name Relation Home Work Mobile Avril Dennis Spouse [phone] Other Contacts Name Relation Home Work Mobile Robert Hackett Relative [phone] INSURANCE PAYOR PLAN GROUP # SUBSCRIBER ID Primary: Secondary: MEDICARE [place] [id number] Admitting Diagnosis: 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 Outpatient intravenous antibiotic therapy: Daptomycin 800 mg IV daily to be supplied by [facility] 2. Home health to perform [...] INFECTIOUS DISEASE Progress Note Won Dennis 1980 [id number] Date of Consult: 04/10/2025 Admission Date: 04/04/2025 [...] which prompted him to seek treatment at [facility]. He is known to Dr. [...] Jr., MD, 20 mg at 04/09/25906 heparin 36109 units/250 mL (100 units/mL) in 0.45 % [...] vancomycin 2750 mg/500 mL 0.9% NS IVPB ([facility]) Ordering Provider: Mario Crowley, DO [...] Units Date/Time FL C Arm During Surgery [[id number]] Resulted: 04/07/252137 Updated: 04/07/252137 Narrative: This procedure was auto-finalized with no dictation required. MRI Tibia Fibula Right With & Without Contrast [[id number]] Collected: 04/07/2538 Updated: 04/07/25 1001 Narrative: MRI [...] Buenrostro 04/07/2025 9:58 AM EDT Workstation ID: [id number] Impression: Recurrent Right BKA stump abscess/cellulitis- this [...] 04/10/251323 Creation Time: 04/10/251323 Signed Expand All [facility] Medicine Services PROGRESS NOTE Patient Name: [...] Date/Time Wound Culture - Swab, Leg, Right [[id number]] (Abnormal) (Susceptibility) Collected: 04/07/252106 Lab Status: Final [...] Row Name 04/06/25 1143 Sit-Stand Transfer Sit-Stand [place] (Transfers) modified independence - Comment, (Sit-Stand Transfer) Pt stood from recliner. Not holding onto walker, pt able to pull his pants up while balancing on his one leg. -LM Row Name 04/06/25 1143 Gait/Stairs (Locomotion) [place] Level (Gait) modified independence - Distance in [...] Motion bilateral lower extremity ROM WFL -LM [facility] Name 04/06/25 1145 Strength Comprehensive (MMT) General Manual Muscle Testing (MMT) Assessment no strength deficits identified BLEs -LM [facility] Name 04/06/25 1145 Balance Balance [...] home at d/c. PT signing off. -LM [facility] Name 04/06/25 1146 Therapy Assessment/Plan (PT) Criteria for Skilled Interventions Met (PT) no;no problems identified which require skilled intervention -LM Therapy Frequency (PT) evaluation only -LM Predicted Duration of Therapy Intervention (PT) Eval Only -LM [facility] Name 04/06/25 1146 Vital Signs Pretreatment Heart Rate (beats/min) 86 -LM Posttreatment Heart Rate (beats/min) 96 -LM Pre SpO2 (%) 95 -LM O2 Delivery Pre Treatment room air -LM Post SpO2 (%) 96 -LM O2 Delivery Post Treatment room air -LM Pre Patient Position Sitting -LM Post Patient Position Sitting -LM [facility] Name 04/06/25 1146 Positioning and [...] Nurse Physical Therapy Education Title: PT OT SMOKE TESTER Therapies (Done) Topic: Physical Therapy (Done) Point: Mobility training (Done) Learning Progress Summary Patient Acceptance, E, VU,DU by at 04/06/2025 1147 Point: Precautions (Done) Learning Progress Summary Patient Acceptance, E, VU,DU by at 04/06/2025 1147 User Cabrera Initials Effective Dates Name Provider Type [facility] 01/24/25 - Susan Cavazos, PT Physical [...] Description Service Date Service Provider Modifiers Qty [phone] PT EVAL LOW COMPLEXITY 3 04/06/2025 Susan [...] mg Daily 04/05/2025 -- Route: Oral heparin 70568 units/250 mL (100 units/mL) in 0.45 % [...] 22 [facility] [address], [address] [facility], [address] Please schedule at [phone] VONDA Garcia 04/11/25 08:32 EDT Cosigned by [...] Date/Time Wound Culture - Swab, Leg, Right [[id number]] (Abnormal) (Susceptibility) Collected: 04/07/252106 Lab Status: Final [...] mg Daily 04/05/2025 -- Route: Oral heparin 27669 units/250 mL (100 units/mL) in 0.45 % [...] 22 [facility] [address] [facility], [address] [facility], [address] Please schedule at [phone] VONDA Garcia 04/10/25 09:01 EDT Cosigned by Sushil Dean Jr., MD at 04/19/2025 10:33 AM EDT Associated attestation - Sushil Dean Jr., MD - 04/19/2025 10:33 AM EDT I have reviewed this documentation and agree. * Carlton Mead MD - 04/10/2025 7:38 AM EDT Images from the original note were not included. INFECTIOUS DISEASE Progress Note Won Dennis 1980 [id number] Date of Consult: 04/10/2025 Admission Date: 04/04/2025 [...] which prompted him to seek treatment at [facility]. He is known to Dr. [...] IRRIGATION; Surgeon: Sushil Dean Jr., MD; Location: [facility] OR; Service: Orthopedics; Laterality: Right; PLACEMENT OF WOUND VAC Right 04/07/2025 Procedure: WOUND VACUUM ASSISTED CLOSURE; Surgeon: Sushil Dean Jr., MD; Location: [facility] OR; Service: Orthopedics; Laterality: Right; WOUND CLOSURE [...] Jr., MD, 20 mg at 04/09/25906 heparin 91393 units/250 mL (100 units/mL) in 0.45 % [...] Units Date/Time FL C Arm During Surgery [[id number]] Resulted: 04/07/252137 Updated: 04/07/252137 Narrative: This procedure was auto-finalized with no dictation required. MRI Tibia Fibula Right With & Without Contrast [[id number]] Collected: 04/07/25937 Updated: 04/07/25 100 Narrative: MRI [...] Buenrostro 04/07/2025 9:58 AM EDT Workstation ID: [id number] Impression: Recurrent Right BKA stump abscess/cellulitis- this [...] 07:38 EDT * Larisa Hamilton [facility] - 04/10/2025 7:17 [...] Date/Time Wound Culture - Swab, Leg, Right [[id number]] (Abnormal) Collected: 04/07/252106 Lab Status: Preliminary result [...] -- Admin Instructions: Open Order & Select [facility] Electrolyte Replacement Protocol Algorithm to [...] mg Daily 04/05/2025 -- Route: Oral heparin 31539 units/250 mL (100 units/mL) in 0.45 % [...] -- Admin Instructions: Open Order & Select [facility] Electrolyte Replacement Protocol Algorithm to [...] radiographs [facility] [address] [facility], [address] [facility], [address] Please schedule at [phone] VONDA Garcia 04/09/25 09:18 EDT Cosigned by Sushil Dean Jr., MD at 04/19/2025 10:33 AM EDT Associated attestation - Sushil Dean Jr., MD - 04/19/2025 10:33 AM EDT I have reviewed this documentation and agree. * Carlton Meda MD - 04/09/2025 8:25 AM EDT Images from the original note were not included. INFECTIOUS DISEASE Progress Note Won Dennis 1980 [id number] Date of Consult: 04/09/2025 Admission Date: 04/04/2025 [...] which prompted him to seek treatment at [facility]. He is known to Dr. [...] Surgeon: Sushil Dean Jr., MD; Location: [facility] OR; Service: Orthopedics; Laterality: Right; [...] Sushil eDan Jr., MD, 2 puff at 04/08/25 0923 [...] 325 mg, 325 mg, Oral, BID, Sushil eDan Jr., MD, 325 mg at 04/08/252006 furosemide (LASIX) tablet 20 mg, 20 mg, Oral, Daily, Sushil Dean Jr., MD, 20 mg at 04/08/25 0800 heparin 69616 units/250 mL (100 units/mL) in 0.45 % [...] Units Date/Time FL C Arm During Surgery [[id number]] Resulted: 04/07/252137 Updated: 04/07/252137 Narrative: This procedure was auto-finalized with no dictation required. MRI Tibia Fibula Right With & Without Contrast [[id number]] Collected: 04/07/25 0938 Updated: 04/07/25 1001 Narrative: [...] Chitra 04/07/2025 9:58 AM EDT Workstation ID: [id number] Impression: Recurrent Right BKA stump abscess/cellulitis- this [...] mg IV daily to be supplied by [facility] 2. Home health to perform [...] Buenrostro 04/07/2025 9:58 AM EDT Workstation ID: [id number] I have personally reviewed the therapy plans: [...] DO 04/08/25 * Hamilton, Larisa, [facility] - 04/08/2025 11:48 [...] -- Admin Instructions: Open Order & Select [facility] Electrolyte Replacement Protocol Algorithm to [...] mg Daily 04/05/2025 -- Route: Oral heparin 29073 units/250 mL (100 units/mL) in 0.45 % [...] INFECTIOUS DISEASE Progress Note Won Dennis 1980 [id number] Date of Consult: 04/08/2025 Admission Date: 04/04/2025 [...] which prompted him to seek treatment at [facility]. He is known to Dr. [...] Surgeon: Sushil Dean Jr., MD; Location: [facility] OR; Service: Orthopedics; Laterality: Right; PLACEMENT OF WOUND VAC Right 04/07/2025 Procedure: WOUND VACUUM ASSISTED CLOSURE; Surgeon: Sushil Dean Jr., MD; Location: [facility] OR; Service: Orthopedics; Laterality: Right; [...] Oral, Q6H PRN, 500 mg at 04/06/25 6854 OR acetaminophen (TYLENOL) 160 MG/5ML oral solution [...] Jr., MD, 20 mg at 04/07/25950 heparin 78494 units/250 mL (100 units/mL) in 0.45 % [...] vancomycin 2750 mg/500 mL 0.9% NS IVPB ([facility]) Ordering Provider: Mario Crowley, DO [...] Units Date/Time FL C Arm During Surgery [[id number]] Resulted: 04/07/252137 Updated: 04/07/252137 Narrative: This procedure was auto-finalized with no dictation required. 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 (Treated by ID in [place] Dr. Harris). Dr. Torres treated him with [...] Buenrostro 04/07/2025 9:58 AM EDT Workstation ID: [id number] I have personally reviewed the therapy plans: [...] Preeti 04/07/25 * Larisa Hamilton, [facility] - 04/07/2025 11:56 [...] INFECTIOUS DISEASE Progress Note Won Dennis 1980 [id number] Date of Consult: 04/07/2025 Admission Date: 04/04/2025 [...] which prompted him to seek treatment at [facility]. He is known to Dr. [...] MD, 20 mg at 04/06/25 0900 heparin 85892 units/250 mL (100 units/mL) in 0.45 % NaCl infusion, 18 Units/kg/hr, Intravenous, Titrated, Cherri Beatty, [facility], Last Rate: 24.1 mL/hr at 04/07/258, [...] swelling, fluctuance, and tenderness laterally. : Without Hsoemaker catheter. MSK: No joint effusions or erythema [...] With & Without Contrast - In process [[id number]] Resulted: 04/07/25828 Updated: 04/07/25828 This result has not been signed. Information might be incomplete. 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 (Treated by ID in [place] Dr. Harris). Dr. Torres treated him with [...] -- Admin Instructions: Open Order & Select [facility] Electrolyte Replacement Protocol Algorithm to [...] mg Daily 04/05/2025 -- Route: Oral heparin 60095 units/250 mL (100 units/mL) in 0.45 % [...] -- Admin Instructions: Open Order & Select [facility] Electrolyte Replacement Protocol Algorithm to [...] 06:07 EDT * Cherri Beatty [facility] - 04/06/2025 1:47 [...] MD 04/04/2025 11:00 PM EDT Workstation ID: [id number] I have personally reviewed the therapy plans: [...] mg Daily 04/05/2025 -- Route: Oral heparin 10994 units/250 mL (100 units/mL) in 0.45 % [...] -- Admin Instructions: Open Order & [facility] Electrolyte Replacement Protocol Algorithm to [...] -- Admin Instructions: Open Order & Select [facility] Electrolyte Replacement Protocol Algorithm to [...] INFECTIOUS DISEASE follow up. Won Dennis 1980 [id number] Date of Consult: 04/06/2025 Admission Date: 04/04/2025 [...] which prompted him to seek treatment at [facility]. He is known to Dr. [...] mg, Rectal, Q6H PRN, Leonora Shehperd MD [Held by provider] apixaban (ELIQUIS) tablet [...] MD, 20 mg at 04/06/25 0900 heparin 45660 units/250 mL (100 units/mL) in 0.45 % NaCl infusion, 18 Units/kg/hr, Intravenous, Titrated, Cherri Beatty [facility], Last Rate: 24.1 [...] Tibia Fibula Right With & Without Contrast [[id number]] Collected: 04/04/252256 Updated: 04/04/252302 Narrative: MRI TIBIA [...] represent a small area of phlegmonous change ([id number] image 10) measuring approximately 1.6 cm which [...] MD 04/04/2025 11:00 PM EDT Workstation ID: [id number] Impression: 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 (Treated by ID in [place] Dr. Harris). Dr. Torres treated him with [...] MD 04/04/2025 11:00 PM EDT Workstation ID: [id number] I have personally reviewed the therapy plans: [...] MD 04/04/2025 11:00 PM EDT Workstation ID: [id number] Assessment & Plan Assessment & Plan Won [...] ORTHOPEDIC SURGERY [facility], [facility] [address] [address] Orthopedic Consult Patient: Won Dennis Date of Admission: 04/04/2025 4:10 PM Date of : 1980 Attending Physician: Jason Álvarez DO Consulting Physician: Sushil Dean Jr, MD Chief Complaint: 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 male admitted to [facility] with Right BKA infection [T87.43]. He [...] was evaluated in the emergency department in [place], was discharged with instructions for follow-up. He [...] mouth Daily. 04/03/2025 Morning Lactobacillus-Inulin ([facility]) capsule Take 200 mg by [...] MD 04/04/2025 11:00 PM EDT Workstation ID: [id number] Assessment: Right BKA infection 44-year-old male with [...] DISEASE CONSULT/INITIAL HOSPITAL VISIT Won Dennis 1980 [id number] Date of Consult: 04/05/2025 Admission Date: 04/04/2025 [...] which prompted him to seek treatment at [facility]. He is known to Dr. [...] Leonora Shepherd MD, 40 mg at 04/04/25 9142 sennosides-docusate (PERICOLACE) 8.6-50 MG per tablet 2 [...] MD, 20 mg at 04/05/25 09 heparin 44659 units/250 mL (100 units/mL) in 0.45 % [...] Leonora Shepherd MD, 10 mg at 04/04/25 4882 Pharmacy to Dose Heparin, , Not Applicable, [...] Tibia Fibula Right With & Without Contrast [[id number]] Collected: 04/04/252256 Updated: 04/04/252302 Narrative: MRI TIBIA [...] represent a small area of phlegmonous change (ryzfwb06 image 10) measuring approximately 1.6 cm which [...] MD 04/04/2025 11:00 PM EDT Workstation ID: [id number] Impression: Right BKA stump cellulitis- s/p BKA with multiple surgical interventions with Known MRSA 05/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 (Treated by ID in [place] Dr. Harris). Dr. Torres treated him with [...] infection POSTOP DIAGNOSIS: Same. PROCEDURE: Right Right 77007: Secondary closure below-knee amputation SURGEON: Sushil Dean MD OPERATIVE TEAM: Document Photographer: Susi Grullon RN Scrub Person: Mary Paredes Scrub Person Extra: Hrotencia Toribio Other: Katt Gotti RN; Charis Neville RN ANESTHETIST: Anesthesiologist: Ulises Hoffman MD BROADCAST DESIGNER: Stan Casillas CRNA Student Nurse Box Maker Paperboard: Karol Albert SRNA ANESTHESIA: Choice ESTIMATED BLOOD [...] CULTURE (Canceled) Sushil Dean Jr., MD 04/08/25 9731 Description: RIGHT LEG DEEP WOUND FOR CULTURE [...] PM EDT [facility], [place] [address] OPERATIVE REPORT PATIENT NAME: Won Dennis DATE OF : 1980 PREOP DIAGNOSIS: Right Right below knee amputation stump infection POSTOP DIAGNOSIS: Same. PROCEDURE: Right Right 62753: Incision and drainage of surgical site infection 74224: Debridement of skin, subcutaneous tissue, muscle 49185: Wound vacuum-assisted closure SURGEON: Sushil Dean MD OPERATIVE TEAM: Document Photographer: Anum Sanchez RN Scrub Person: Hortencia Toribio; Gerald Ivey PSYCHIATRIC SPECIALIST: Anesthesiologist: Luci Alonso DO ANESTHESIA: General ESTIMATED [...] and scrubbed for the entire case. Sushil eDan Jr, MD 04/07/2025 documented in this encounter [...] ago swellling of the area. seen at [facility] yesterday for CT and US, [...] this chart in the absence of a geological manager. No orders to display RADIOLOGY: [x] [...] is discharging home with outpatient infusion at [facility]. He has an appointment with [facility] at 8:00 am tomorrow. They will do PICC line dressing changes. DEBRA has spoke with Dena at [facility] today multiple times to get setup due [...] to get IV ABX at home with [facility]; however, Medicaid lapsed on 04/08. DEBRA was unaware until this morning that Medicaid has lapsed. Patient explained that he has Medicare A and B. CM spoke with KELLEE and given themhis Medicare number [id number], she sent it to Admission. DEBRA spoke with Kerri, with [facility], and explained that he had Medicare A and B. However, it will not cover home infusion. It will be $64.00 a day out of packet. Patients can go to the Infusion center at [facility], and it will cover the cost as an outpatient. He will need to go there every day for infusion. They will be able to do the patients' PICC line dressing changes and lab work. EDBRA called Dena [facility] Outpatient infusion center they can accept patient and start him. He is known for their facility. The Facility will need to run it through his insurance first. CM faxed the orders over to [facility] at [phone]. CM will follow up with them tomorrow at [facility] to make sure they received the [...] 04/09/2025 2:51 PM EDT Continued Stay Note [facility] Patient Name: Won Dennis Today's Date: 04/09/2025 Admit Date: 04/04/2025 Plan: Home Discharge Plan Row Name 04/09/25 1311 Plan Plan Home Patient/Family in Agreement with Plan yes Plan Comments CM spoke with patient at bedside today. Wheelchair from [employer] [facility] is at bedside. Patient getting PICC line [...] note were not included. Discharge Planning Assessment [facility] Patient Name: Won Dennis [...] family Patient/Family Anticipated Services at Transition manager of case managementmanager of operations Anticipated family or friend will provide Discharge [...] for home. CM [facility] He is not current with home [...] General Information Arrived From hospital Preferred Language Angolan Functional Status Row Name 04/07/25 1143 Functional [...] Auto Differential (04/11/2025 3:40 AM EDT) [facility] WBC 7.87 3.40 - 10.80 10*3/mm3 04/11/2025 4:02 AM EDT [facility] RBC 4.70 4.14 - 5.80 10*6/mm3 04/11/2025 4:02 AM [facility] Hemoglobin 12.8(L) 13.0 - 17.7 g/dL 04/11/2025 4:02 AM [facility] Hematocrit 40.5 37.5 - 51.0 % 04/11/2025 4:02 AM [facility] MCV 86.2 79.0 - 97.0 fL 04/11/2025 4:02 AM [facility] MCH 27.2 26.6 - 33.0 pg 04/11/2025 4:02 AM [facility] MCHC 31.6 31.5 - 35.7 g/dL 04/11/2025 4:02 AM [facility] RDW 12.9 12.3 - 15.4 % 04/11/2025 4:02 AM [facility] RDW-SD 40.5 37.0 - 54.0 fl 04/11/2025 4:02 AM [facility] MPV 9.2 6.0 - 12.0 fL 04/11/2025 4:02 AM [facility] Platelets 267 140 - 450 10*3/mm3 04/11/2025 4:02 AM [facility] Neutrophil % 59.5 42.7 - 76.0 % 04/11/2025 4:02 AM [facility] Lymphocyte % 26.3 19.6 - 45.3 % 04/11/2025 4:02 AM [facility] Monocyte % 9.3 5.0 - 12.0 % 04/11/2025 4:02 AM [facility] Eosinophil % 4.1 0.3 - 6.2 % 04/11/2025 4:02 AM [facility] Basophil % 0.4 0.0 - 1.5 % 04/11/2025 4:[facility] Immature Grans % 0.4 0.0 - 0.5 % 04/11/2025 4:02 AM EDT [facility] Neutrophils, Absolute 4.69 1.70 - 7.00 10*3/mm3 04/11/2025 4:02 AM EDT [facility] Result [facility]
[address] [place] [address], * (ABNORMAL) Comprehensive Metabolic Panel (04/11/2025 3:40 AM EDT) Glucose 108(H) 65 - 99 mg/dL 04/11/2025 4:19 AM EDT [facility] BUN 12.5 6.0 - 20.0 mg/dL 04/11/2025 4:19 AM EDT [facility] Creatinine 0.68(L) 0.76 - 1.27 mg/dL 04/11/2025 4:19 AM [facility] Sodium 140 136 - 145 mmol/L 04/11/2025 4:19 AM [facility] Potassium 3.8 3.5 - 5.2 mmol/L 04/11/2025 4:19 AM [facility] Chloride 105 98 - 107 mmol/L 04/11/2025 4:19 AM [facility] CO2 28.2 22.0 - 29.0 mmol/L 04/11/2025 4:19 AM [facility] Calcium 8.2(L) 8.6 - 10.5 mg/dL 04/11/2025 4:19 AM [facility] Total Protein 6.1 6.0 - 8.5 g/dL 04/11/2025 4:19 AM [facility] Albumin 3.1(L) 3.5 - 5.2 g/dL 04/11/2025 4:19 AM [facility] ALT (SGPT) 52(H) 1 - 41 U/L 04/11/2025 4:19 AM [facility] AST (SGOT) 40 1 - 40 U/L 04/11/2025 4:19 AM [facility] Alkaline Phosphatase 99 39 - 117 U/L 04/11/2025 4:19 AM [facility] Total Bilirubin 0.2 0.0 - 1.2 mg/dL 04/11/2025 4:19 AM [facility] Globulin 3.0 gm/dL 04/11/2025 4:19 AM [facility] Comment:Calculated Result A/G Ratio 1.0 g/dL 04/11/2025 4:19 AM [facility] BUN/Creatinine Ratio 18.4 7.0 - 25.0 04/11/2025 4:19 AM [facility] Anion Gap 6.8 5.0 - 15.0 mmol/L 04/11/2025 4:19 AM [facility] eGFR 117.5 >60.0 mL/min/1.7 3 04/11/2025 4:19 AM EDT [facility] Blood Venipuncture / Unknown 04/11/2025 3:40 AM EDT 04/11/2025 3:56 AM EDT [facility] - 04/11/2025 4:19 AM [...] Hill APRN LAB BLOOD ORDERABLES Final Result [facility]
[address] [place] [address], * (ABNORMAL) CBC Auto Differential (04/10/2025 3:46 [...] 26.6 - 33.0 pg 04/10/2025 3:[facility] MCHC 32.2 31.5 - 35.7 g/dL 04/10/2025 3:56 AM EDT [facility] RDW 12.9 12.3 - 15.4 % 04/10/2025 3:56 [facility] RDW-SD 40.5 37.0 - 54.0 fl 04/10/2025 3:56 AM EDT [facility] MPV 9.5 6.0 - 12.0 fL 04/10/2025 3:56 AM EDT [facility] Platelets 227 140 - 450 10*3/mm3 04/10/2025 3:56 AM [facility] Neutrophil % 59.1 42.7 - 76.0 % 04/10/2025 3:56 AM [facility] Lymphocyte % 29.0 19.6 - 45.3 % 04/10/2025 3:56 [facility] Monocyte % 8.1 5.0 - 12.0 % 04/10/2025 3:56 AM [facility] Eosinophil % 3.2 0.3 - 6.2 % 04/10/2025 3:56 AM [facility] Basophil % 0.4 0.0 - 1.5 % 04/10/2025 3:56 AM [facility] Immature Grans % 0.2 0.0 - 0.5 % 04/10/2025 3:56 [facility] Neutrophils, Absolute 5.67 1.70 - 7.00 10*3/mm3 04/10/2025 3:56 [facility] Lymphocytes, Absolute 2.78 0.70 - 3.10 10*3/mm3 04/10/2025 3:56 [facility] Monocytes, Absolute 0.78 0.10 - 0.90 10*3/mm3 04/10/2025 3:56 AM [facility] Eosinophils, Absolute 0.31 0.00 - 0.40 10*3/mm3 04/10/2025 3:56 AM EDT [facility] Basophils, Absolute 0.04 0.00 - 0.20 10*3/mm3 04/10/2025 3:56 AM EDT [facility] Immature Grans, Absolute 0.02 0.00 - [...] t [facility]
[address] [place] [address], * (ABNORMAL) Basic Metabolic Panel (04/10/2025 3:46 [...] t [facility]
[address] [place] [address], * Heparin Anti-Xa (04/10/2025 3:46 AM EDT) Heparin Anti-Xa (UFH) 0.35 0.30 - 0.70 IU/ml 04/10/2025 4:23 AM EDT [facility] Blood Venipuncture / Unknown 04/10/2025 3:46 AM EDT 04/10/2025 3:53 AM EDT Larisa Hamilton [facility] LAB BLOOD ORDERABLES Final R esult [facility]
[address] [place] [address], * Heparin Anti-Xa (04/09/2025 10:05 AM EDT) Pathologist [facility] Heparin Anti-Xa (UFH) 0.36 0.30 - 0.70 IU/ml 04/09/2025 11:12 AM EDT [facility] Blood Venipuncture / Unknown 04/09/2025 10:05 AM EDT 04/09/2025 10:47 AM EDT Larisa Hamilton [facility] LAB BLOOD ORDERABLES Final R esult [facility]
[address] [place] [address], * (ABNORMAL) CBC Auto Differential (04/09/2025 4:18 [...] 12.3 - 15.4 % 04/09/2025 4:50 AM [facility] RDW-SD 39.9 37.0 - 54.0 fl 04/09/2025 4:50 AM [facility] MPV 10.0 6.0 - 12.0 fL 04/09/2025 4:50 AM [facility] Platelets 211 140 - 450 10*3/mm3 04/09/2025 4:50 AM [facility] Neutrophil % 74.8 42.7 - 76.0 % 04/09/2025 4:50 AM [facility] Lymphocyte % 15.4(L) 19.6 - 45.3 % 04/09/2025 4:50 AM [facility] Monocyte % 8.5 5.0 - 12.0 % 04/09/2025 4:50 AM [facility] Eosinophil % 0.6 0.3 - 6.2 % 04/09/2025 4:50 AM [facility] Basophil % 0.4 0.0 - 1.5 % 04/09/2025 4:50 AM [facility] Immature Grans % 0.3 0.0 - 0.5 % 04/09/2025 4:50 AM [facility] Neutrophils, Absolute 8.23(H) 1.70 - 7.00 10*3/mm3 04/09/2025 4:50 AM [facility] Lymphocytes, Absolute 1.69 0.70 - 3.10 10*3/mm3 04/09/2025 4:50 AM [facility] Monocytes, Absolute 0.94(H) 0.10 - 0.90 10*3/mm3 04/09/2025 4:50 AM [facility] Eosinophils, Absolute 0.07 0.00 - 0.40 10*3/mm3 04/09/2025 4:50 [facility] Basophils, Absolute 0.04 0.00 - 0.20 10*3/mm3 04/09/2025 4:50 AM EDT [facility] Immature Grans, Absolute 0.03 0.00 - 0.05 10*3/mm3 04/09/2025 4:50 AM EDT [facility] nRBC 0.0 0.0 - 0.2 /100 WBC 04/09/2025 4:50 AM EDT [facility] Blood Venipuncture / Unknown 04/09/2025 4:18 AM EDT 04/09/2025 4:31 AM EDT Sushil Dean Jr., MD LAB BLOOD ORDERABLES Fi nal Result Performing Organization Address City/[facility]/ZIP Co de Phone Number [facility]
[address] [place] [address], * Heparin Anti-Xa (04/09/2025 4:18 AM EDT) Heparin Anti-Xa (UFH) 0.41 0.30 - 0.70 IU/ml 04/09/2025 4:53 AM EDT [facility] Blood Venipuncture / Unknown 04/09/2025 4:18 AM EDT 04/09/2025 4:31 AM EDT Una LundbergD LAB BLOOD ORDERABLES Final R esult [facility]
[address] [place] [address], * (ABNORMAL) Basic Metabolic Panel (04/09/2025 4:18 [...] 4:18 AM EDT 04/09/2025 4:29 AM EDT [facility] - 04/09/2025 5:33 AM [...] [facility]
[address] [place] [address], * Wound Culture - Swab, Leg, Right (04/08/2025 3:40 PM EDT) Wound Culture No growth at 3 days ALIZA 04/11/2025 10:40 AM EDT [facility] Gram Stain Few (2+) [...] GENERAL ORDERABLES Final Result Performing Organization Address City/[facility]/ZIP Co de Phone Number [facility]
[address] [place] [address], [facility]
[address] [place] [address], * Anaerobic Culture - Swab, Leg, Right (04/08/2025 3:40 PM EDT) Anaerobic Culture No anaerobes isolated at 5 days ALIZA 04/13/2025 7:24 AM EDT [facility] Swab Structure of right lower limb / Unknown 04/08/2025 3:40 PM EDT 04/08/2025 8:05 PM EDT us Sushil Dean Jr., MD MICROBIOLOGY - GENERAL ORDERABLES Final Result Performing Organization Address City/[facility]/ZIP Co de Phone Number [facility]
[address] [place] [address], * Scan Slide (04/08/2025 8:41 AM EDT) [...] esult [facility]
[address] [place] [address], * (ABNORMAL) CBC Auto Differential (04/08/2025 8:41 [...] 37.0 - 54.0 fl 04/08/2025 11:02 AM [facility] MPV 11.0 6.0 - 12.0 fL 04/08/2025 11:02 AM [facility] Platelets 118(L) 140 - 450 10*3/mm3 04/08/2025 11:02 AM [facility] Neutrophil % 85.1(H) 42.7 - 76.0 % 04/08/2025 11:02 AM [facility] Lymphocyte % 9.3(L) 19.6 - 45.3 % 04/08/2025 11:02 AM [facility] Monocyte % 4.6(L) 5.0 - 12.0 % 04/08/2025 11:02 AM [facility] Eosinophil % 0.3 0.3 - 6.2 % 04/08/2025 11:02 AM [facility] Basophil % 0.2 0.0 - 1.5 % 04/08/2025 11:02 AM [facility] Immature Grans % 0.5 0.0 - 0.5 % 04/08/2025 11:02 AM [facility] Neutrophils, Absolute 8.57(H) 1.70 - 7.00 10*3/mm3 04/08/2025 11:02 AM [facility] Lymphocytes, Absolute 0.94 0.70 - 3.10 10*3/mm3 04/08/2025 11:02 AM [facility] Monocytes, Absolute 0.46 0.10 - 0.90 10*3/mm3 04/08/2025 11:02 AM [facility] Eosinophils, Absolute 0.03 0.00 - 0.40 10*3/mm3 04/08/2025 11:02 AM [facility] Basophils, Absolute 0.02 0.00 - 0.20 10*3/mm3 04/08/2025 11:02 AM [facility] Immature Grans, Absolute 0.05 0.00 - 0.05 10*3/mm3 04/08/2025 11:02 AM EDT [facility] nRBC 0.0 0.0 - 0.2 /100 WBC 04/08/2025 11:02 AM EDT [facility] Blood Venipuncture / Unknown 04/08/2025 8:41 AM EDT 04/08/2025 9:10 AM EDT Una Perla PharmD LAB BLOOD ORDERABLES Final R esult [facility]
[address] [place] [address], * (ABNORMAL) Basic Metabolic Panel (04/08/2025 8:41 [...] ORDERABLES Fi nal Result Performing Organization Address City/[facility]/ZIP Co de Phone Number [facility]
[address] [place] [address], * Heparin Anti-Xa (04/08/2025 8:41 AM EDT) Heparin Anti-Xa (UFH) 0.33 0.30 - 0.70 IU/ml 04/08/2025 9:40 AM EDT [facility] Blood Venipuncture / Unknown 04/08/2025 8:41 AM EDT 04/08/2025 9:10 AM EDT Sushil Dean Jr., MD LAB BLOOD ORDERABLES Fi nal Result Performing Organization Address City/[facility]/ZIP Co de Phone Number [facility]
[address] [place] [address], * FL C Arm During Surgery (04/07/2025 9:32 PM EDT) Narrative SYSTEMGENERATED, DOCUMENTATION - 04/07/2025 9:38 PM EDT This procedure was auto-finalized with no dictation required. us Sushil Dean Jr., MD IMG FLUOROSCOPY ORDERAB LES Final Result * Wound Culture - Swab, Leg, Right (04/07/2025 9:14 PM EDT) Wound Culture No growth at 3 days ALIZA 04/11/2025 10:40 AM EDT [facility] Gram Stain Occasional WBCs [...] GENERAL ORDERABLES Final Result Performing Organization Address City/[facility]/ZIP Co de Phone Number [facility]
[address] [place] [address], [place] [phone] [facility]
[address] [place] [address], [place] [phone] * Anaerobic Culture - Swab, Leg, Right (04/07/2025 9:14 PM EDT) Anaerobic Culture No anaerobes isolated at 5 days ALIZA 04/13/2025 7:21 AM EDT [facility] Swab Structure of right lower limb / Unknown Collection / Unknown 04/07/2025 9:14 PM EDT 04/08/2025 4:36 AM EDT us Sushil Dean Jr., MD MICROBIOLOGY - GENERAL ORDERABLES Final Result [facility]
[address] [place] [address], * Anaerobic Culture - Tissue, Leg (04/07/2025 9:13 PM EDT) Anaerobic Culture No anaerobes isolated at 5 days ALIZA 04/13/2025 7:21 AM EDT [facility] Tissue Lower limb structure / Unknown Collection / Unknown 04/07/2025 9:13 PM EDT 04/08/2025 4:54 AM EDT Jason Álvarez DO MICROBIOLOGY - GENERAL ORDERABLE S Final Result Performing Organization Address [facility]/State/ZIP Co de Phone Number [facility]
[address] [place] [address], * Tissue / Bone Culture - Tissue, Leg, Right (04/07/2025 9:13 PM EDT) Tissue Culture No growth at 3 days ALIZA 04/11/2025 10:36 AM EDT [facility] Gram Stain Rare (1+) WBCs seen 04/11/2025 10:36 AM EDT [facility] Gram Stain No organisms seen 04/11/2025 10:36 AM EDT [facility] Tissue Structure of right lower limb / Unknown 04/07/2025 9:13 PM EDT 04/08/2025 4:54 AM EDT Sushil Dean Jr., MD MICROBIOLOGY - GENERAL ORDERABLES Final Result [facility]
[address] [place] [address], [facility]
[address] [place] [address], [place] [phone] * (ABNORMAL) Wound Culture - Swab, Leg, Right (04/07/2025 9:07 PM EDT) Wound Culture Light growth (2+) Staphylococcus aureus, MRSA(A) ALIZA 04/10/2025 10:38 AM EDT [facility] Comment: Methicillin resistant Staphylococcus aureus, Patient may be an isolation risk. Gram Stain Few (2+) WBCs seen 04/10/2025 10:38 AM EDT [facility] Gram Stain No organisms seen 10:38 AM EDT [facility] Vancomycin ALIZA 1 ug/ml: Susceptible us Sushil Dena Jr., MD MICROBIOLOGY - GENERAL ORDERABLES Final Result [facility]
[address] [place] [address], [place] [phone] [facility]
[address] [place] [address], [place] [phone] * Anaerobic Culture - Swab, Leg, Right (04/07/2025 9:07 PM EDT) Anaerobic Culture No anaerobes isolated at 5 days ALIZA 04/13/2025 7:21 AM EDT [facility] Swab Structure of right lower limb / Unknown Collection / Unknown 04/07/2025 9:07 PM EDT 04/08/2025 4:36 AM EDT us Sushil Dean Jr., MD MICROBIOLOGY - GENERAL ORDERABLES Final Result [facility]
[address] [place] [address], * Heparin Anti-Xa (04/07/2025 9:10 AM EDT) Pathologist [facility] Heparin Anti-Xa (UFH) 0.30 0.30 - 0.70 IU/ml 04/07/2025 10:12 AM EDT [facility] Blood Venipuncture / Unknown 04/07/2025 9:10 AM EDT 04/07/2025 9:38 AM EDT Una Perla PharmD LAB BLOOD ORDERABLES Final R esult Performing Organization Address City/[facility]/ZIP Co de Phone Number [facility]
[address] [place] [address], * (ABNORMAL) CBC Auto Differential (04/07/2025 9:10 [...] 12.3 - 15.4 % 04/07/2025 9:50 AM [facility] RDW-SD 39.9 37.0 - 54.0 fl 04/07/2025 9:50 AM [facility] MPV 10.8 6.0 - 12.0 fL 04/07/2025 9:50 AM [facility] Platelets 149 140 - 450 10*3/mm3 04/07/2025 9:50 AM [facility] Neutrophil % 66.7 42.7 - 76.0 % 04/07/2025 9:50 AM [facility] Lymphocyte % 20.5 19.6 - 45.3 % 04/07/2025 9:50 AM [facility] Monocyte % 9.8 5.0 - 12.0 % 04/07/2025 9:50 AM [facility] Eosinophil % 2.1 0.3 - 6.2 % 04/07/2025 9:50 AM [facility] Basophil % 0.3 0.0 - 1.5 % 04/07/2025 9:50 AM [facility] Immature Grans % 0.6(H) 0.0 - 0.5 % 04/07/2025 9:50 AM [facility] Neutrophils, Absolute 5.75 1.70 - 7.00 10*3/mm3 04/07/2025 9:50 AM [facility] Lymphocytes, Absolute 1.77 0.70 - 3.10 10*3/mm3 04/07/2025 9:50 AM [facility] Monocytes, Absolute 0.85 0.10 - 0.90 10*3/mm3 04/07/2025 9:50 AM [facility] Eosinophils, Absolute 0.18 0.00 - 0.40 10*3/mm3 04/07/2025 9:50 AM [facility] Basophils, Absolute 0.03 0.00 - 0.20 10*3/mm3 04/07/2025 9:50 AM [facility] Immature Grans, Absolute 0.05 0.00 - 0.05 10*3/mm3 04/07/2025 9:50 AM EDT [facility] nRBC 0.0 0.0 - 0.2 /100 WBC 04/07/2025 9:50 AM EDT [facility] Blood Venipuncture / Unknown 04/07/2025 9:10 AM EDT 04/07/2025 9:38 AM EDT us Jason Álvarez DO LAB BLOOD ORDERABLES Final Resul t [facility]
[address] [place] [address], * (ABNORMAL) Basic Metabolic Panel (04/07/2025 9:10 [...] - 5.2 mmol/L 04/07/2025 10:19 AM EDT [facility] Comment:Specimen hemolyzed. Result may be falsely elevated. Chloride 105 98 - 107 mmol/L 04/07/2025 10:19 AM EDT [facility] CO2 24.8 22.0 - 29.0 mmol/L 04/07/2025 10:19 AM EDT [facility] Calcium 8.6 8.6 - 10.5 mg/dL 04/07/2025 10:19 AM EDT [facility] t [facility]
[address] [place] [address], * MRI Tibia Fibula Right With & [...] [place] 04/07/2025 9:58 AM EDT Workstation ID: [id number] Narrative 04/07/2025 9:58 AM EDT MRI TIBIA [...] [place] 04/07/2025 9:58 AM EDT Workstation ID: [id number] Sushil Dean Jr., MD IMG MRI ORDERABLES Mary Beth l Result * Heparin Anti-Xa (04/07/2025 1:42 AM EDT) [facility] Heparin Anti-Xa (UFH) 0.38 0.30 - 0.70 IU/ml 04/07/2025 2:14 AM EDT [facility] Blood Venipuncture / Unknown 04/07/2025 1:42 AM EDT 04/07/2025 1:54 AM EDT Chelsie Turpin [facility] LAB BLOOD ORDERABLES Final R esult [facility]
[address] [place] [address], * Heparin Anti-Xa (04/06/2025 7:16 PM EDT) [facility] Heparin Anti-Xa (UFH) 0.33 0.30 - 0.70 IU/ml 04/06/2025 7:50 PM EDT [facility] Blood Venipuncture / Unknown 04/06/2025 7:16 PM EDT 04/06/2025 7:35 PM EDT Cherri Beatty [facility] LAB BLOOD ORDERABLES Final Res ult Performing Organization Address [facility] Co de Phone Number [facility]
[address] [place] [address], * Potassium (04/06/2025 7:16 PM EDT) [facility] Potassium 4.0 3.5 - 5.2 mmol/L 04/06/2025 7:53 PM EDT [facility] Blood Venipuncture / Unknown 04/06/2025 7:16 PM EDT 04/06/2025 7:35 PM EDT Jason Álvarez DO LAB BLOOD ORDERABLES Final Resul t Performing Organization Address [facility] [[email or web address]] de Phone Number [facility]
[address] [place] [address], * (ABNORMAL) Heparin Anti-Xa (04/06/2025 12:36 PM EDT) [facility] Heparin Anti-Xa (UFH) 0.24(L) 0.30 - 0.70 IU/ml 04/06/2025 1:23 PM EDT [facility] Blood Venipuncture / Unknown 04/06/2025 12:36 PM EDT 04/06/2025 1:07 PM EDT Una Perla PharmD LAB BLOOD ORDERABLES Final R esult Performing Organization Address [facility] Co de Phone Number [facility]
[address] [place] [address], * (ABNORMAL) Heparin Anti-Xa (04/06/2025 3:42 AM EDT) [facility] Heparin Anti-Xa (UFH) 0.25(L) 0.30 - 0.70 IU/ml 04/06/2025 5:30 AM EDT [facility] Blood Venipuncture / Unknown 04/06/2025 3:42 AM EDT 04/06/2025 4:59 AM EDT Chelsie Dyana [facility] LAB BLOOD ORDERABLES Final R esult [facility]
[address] [place] [address], * (ABNORMAL) Basic Metabolic Panel (04/06/2025 3:42 AM EDT) [facility] Glucose 94 65 - 99 [...] 3:42 AM EDT 04/06/2025 5:20 AM EDT [facility] - 04/06/2025 5:59 AM [...] t [facility]
[address] [place] [address], * (ABNORMAL) CBC Auto Differential (04/06/2025 3:41 [...] 79.0 - 97.0 fL 04/06/2025 5:[facility] MCH 27.4 26.6 - 33.0 pg 04/06/2025 5:04 AM [facility] MCHC 31.8 31.5 - 35.7 g/dL 04/06/2025 5:04 AM [facility] RDW 12.8 12.3 - 15.4 % 04/06/2025 5:04 AM [facility] RDW-SD 40.0 37.0 - 54.0 fl 04/06/2025 5:04 AM [facility] MPV 11.7 6.0 - 12.0 fL 04/06/2025 5:04 AM [facility] Platelets 115(L) 140 - 450 10*3/mm3 04/06/2025 5:04 AM [facility] Neutrophil % 65.3 42.7 - 76.0 % 04/06/2025 5:04 AM [facility] Lymphocyte % 20.5 19.6 - 45.3 % 04/06/2025 5:04 AM [facility] Monocyte % 11.8 5.0 - 12.0 % 04/06/2025 5:04 AM [facility] Eosinophil % 1.8 0.3 - 6.2 % 04/06/2025 5:04 AM [facility] Basophil % 0.3 0.0 - 1.5 % 04/06/2025 5:04 [facility] Immature Grans % 0.3 0.0 - 0.5 % 04/06/2025 5:04 AM [facility] Neutrophils, Absolute 7.09(H) 1.70 - 7.00 10*3/mm3 04/06/2025 5:04 [facility] Lymphocytes, Absolute 2.23 0.70 - 3.10 10*3/mm3 04/06/2025 5:04 [facility] Monocytes, Absolute 1.28(H) 0.10 - 0.90 10*3/mm3 04/06/2025 5:04 AM EDT [facility] Eosinophils, Absolute 0.20 0.00 - 0.40 10*3/mm3 04/06/2025 5:04 AM EDT [facility] ORDERABLES Final Resul t Performing Organization Address City/[facility] Co de Phone Number [facility]
[address] [place] [address], [place] [phone] * Heparin Anti-Xa (04/05/2025 8:43 PM EDT) Pathologist [facility] Heparin Anti-Xa (UFH) 0.38 0.30 - 0.70 IU/ml 04/05/2025 9:09 PM EDT [facility] Blood Venipuncture / Unknown 04/05/2025 8:43 PM EDT 04/05/2025 8:55 PM EDT us Cherri Beatty [facility] BLOOD ORDERABLES Final Res ult Performing Organization Address City/[facility] Co de Phone Number [facility]
[address] [place] [address], [place] [phone] * CK (04/05/2025 12:15 PM EDT) Creatine Kinase 140 20 - 200 U/L 04/05/2025 1:31 PM EDT [facility] Blood Venipuncture / Unknown 04/05/2025 12:15 PM EDT 04/05/2025 1:03 PM EDT Carlton Mead MD LAB BLOOD ORDERABLES Final R esult Performing Organization Address City/[facility]/ZIP Co de Phone Number [facility]
[address] [place] [address], * (ABNORMAL) Heparin Anti-Xa (04/05/2025 12:15 PM EDT) [facility] Heparin Anti-Xa (UFH) 0.17(L) 0.30 - 0.70 IU/ml 04/05/2025 1:21 PM EDT [facility] Blood Venipuncture / Unknown 04/05/2025 12:15 PM EDT 04/05/2025 1:04 PM EDT Una Perla PharmD LAB BLOOD ORDERABLES Final R esult Performing Organization Address City/[facility] Co de Phone Number [facility]
[address] [place] [address], * (ABNORMAL) aPTT (04/05/2025 3:54 AM EDT) [facility] PTT 35.3(L) 60.0 - 90.0 [...] 0.5 U/ml are 60 to 70 seconds. [employer] LAB BLOOD ORDERABLES Final R esult [facility]
[address] [place] [address], * Heparin Anti-Xa (04/05/2025 3:54 AM EDT) Pathologist [facility] Heparin Anti-Xa (UFH) 0.30 0.30 - 0.70 IU/ml 04/05/2025 4:32 AM EDT [facility] Blood Venipuncture / Unknown 04/05/2025 3:54 AM EDT 04/05/2025 4:15 AM EDT [employer] LAB BLOOD ORDERABLES Final R esult Performing Organization Address City/[facility]/ZIP Co de Phone Number [facility]
[address] [place] [address], * (ABNORMAL) CBC Auto Differential (04/05/2025 3:54 AM EDT) [facility] WBC 11.18(H) 3.40 - 10.80 [...] 31.5 - 35.7 g/dL 04/05/2025 4:20 AM [facility] RDW 12.9 12.3 - 15.4 % 04/05/2025 4:20 AM [facility] RDW-SD 39.7 37.0 - 54.0 fl 04/05/2025 4:20 AM [facility] MPV 10.2 6.0 - 12.0 fL 04/05/2025 4:20 AM [facility] Platelets 160 140 - 450 10*3/mm3 04/05/2025 4:20 AM [facility] Neutrophil % 73.5 42.7 - 76.0 % 04/05/2025 4:20 AM [facility] Lymphocyte % 14.0(L) 19.6 - 45.3 % 04/05/2025 4:20 AM [facility] Monocyte % 11.0 5.0 - 12.0 % 04/05/2025 4:20 AM [facility] Eosinophil % 0.8 0.3 - 6.2 % 04/05/2025 4:20 AM [facility] Basophil % 0.3 0.0 - 1.5 % 04/05/2025 4:20 AM [facility] Immature Grans % 0.4 0.0 - 0.5 % 04/05/2025 4:20 AM [facility] Neutrophils, Absolute 8.23(H) 1.70 - 7.00 10*3/mm3 04/05/2025 4:20 AM [facility] Lymphocytes, Absolute 1.56 0.70 - 3.10 10*3/mm3 04/05/2025 4:20 AM [facility] Monocytes, Absolute 1.23(H) 0.10 - 0.90 10*3/mm3 04/05/2025 4:20 AM [facility] Eosinophils, Absolute 0.09 0.00 - 0.40 10*3/mm3 04/05/2025 4:20 AM [facility] Basophils, Absolute 0.03 0.00 - 0.20 10*3/mm3 04/05/2025 4:20 AM EDT [facility] Immature Grans, Absolute 0.04 0.00 - 0.05 10*3/mm3 04/05/2025 4:20 AM EDT [facility] nRBC 0.0 0.0 - 0.2 /100 WBC 04/05/2025 4:20 AM EDT [facility] Blood Venipuncture / Unknown 04/05/2025 3:54 AM EDT 04/05/2025 4:16 AM EDT Una Perla PharmD LAB BLOOD ORDERABLES Final R esult [facility]
[address] [place] [address], * (ABNORMAL) Basic Metabolic Panel (04/05/2025 3:54 [...] 3:54 AM EDT 04/05/2025 4:15 AM EDT [facility] - 04/05/2025 4:40 AM [...] MD LAB BLOOD ORDERABLES Final Re sult [facility]
[address] [place] [address], * (ABNORMAL) aPTT (04/05/2025 12:18 AM EDT) PTT 33.6(L) 60.0 - 90.0 seconds 04/05/2025 12:53 AM EDT [facility] Blood Venipuncture / Unknown 04/05/2025 12:18 AM EDT 04/05/2025 12:37 AM EDT [facility] - 04/05/2025 12:53 AM EDT PTT = The equivalent PTT values for the therapeutic range of heparin levels at 0.3 to 0.5 U/ml are 60 to 70 seconds. [employer] PharmD LAB BLOOD ORDERABLES Final R esult [facility]
[address] [place] [address], [place] [phone] * (ABNORMAL) Protime-INR (04/05/2025 12:18 AM EDT) Protime 15.9(H) 12.2 - 15.3 Seconds 04/05/2025 12:53 AM EDT [facility] INR 1.19(H) 0.89 - 1.12 04/05/2025 12:53 AM EDT [facility] Blood Venipuncture / Unknown 04/05/2025 12:18 AM EDT 04/05/2025 12:37 AM EDT [employer] PharmD LAB BLOOD ORDERABLES Final R esult Performing Organization Address [facility] Co de Phone Number [facility]
[address] [place] [address], [place] [phone] * Heparin Anti-Xa (04/05/2025 12:18 AM EDT) Pathologist [facility] Heparin Anti-Xa (UFH) 0.39 0.30 - 0.70 IU/ml 04/05/2025 12:54 AM EDT [facility] Blood Venipuncture / Unknown 04/05/2025 12:18 AM EDT 04/05/2025 12:37 AM EDT [employer] PharmD LAB BLOOD ORDERABLES Final R esult Performing Organization Address City/[facility]/ZIP Co de Phone Number [facility]
[address] [place] [address], [place] [phone] * MRI Tibia Fibula Right With & [...] MD 04/04/2025 11:00 PM EDT Workstation ID: [id number] Narrative 04/04/2025 11:00 PM EDT MRI TIBIA [...] MD 04/04/2025 11:00 PM EDT Workstation ID: [id number] Leonora Shepherd MD IMG MRI ORDERABLES Final Resu lt * POC Creatinine (04/04/2025 2:49 PM EDT) Creatinine 1.10 0.60 - 1.30 mg/dL 04/07/2025 7:14 PM EDT [facility] Comment:Serial Number: [id number] 7Operator: [id number] Venous Blood 04/04/2025 2:49 PM EDT 04/07/2025 7:14 PM EDT Jason Álvarez DO POINT OF CARE TEST ORDERABLES Fi nal Result [facility]
[address] [place] [address], [place] [phone] * (ABNORMAL) CBC Auto Differential (04/04/2025 2:47 PM EDT) [facility] Signature WBC 12.72(H) 3.40 - 10.80 [...] Result [facility]
[address] [place] [address], * (ABNORMAL) C-reactive Protein (04/04/2025 2:47 PM EDT) Pathologist [facility] C-Reactive Protein 8.57(H) 0.00 - 0.50 mg/dL 04/04/2025 3:26 PM EDT [facility] Blood Venipuncture / Unknown 04/04/2025 2:47 PM EDT 04/04/2025 2:52 PM EDT Mario Ortiz Keo LAB BLOOD ORDERABLES Fin al Result [facility]
[address] [place] [address], * (ABNORMAL) Sedimentation Rate (04/04/2025 2:47 PM EDT) [facility] Sed Rate 51(H) 0 - 15 mm/hr 04/04/2025 3:06 PM EDT [facility] Blood Venipuncture / Unknown 04/04/2025 2:47 PM EDT 04/04/2025 2:52 PM EDT Mario Ortiz Keo LAB BLOOD ORDERABLES Fin al Result Performing Organization Address City/[facility]/ZIP Co de Phone Number [facility]
[address] [place] [address], * Comprehensive Metabolic Panel (04/04/2025 2:47 PM EDT) [facility] Glucose 90 65 - 99 [...] - 8.5 g/dL 04/04/2025 3:26 PM EDT [facility] Albumin [...] - 117 U/L 04/04/2025 3:26 PM T [facility] Total Bilirubin 1.0 0.0 - 1.2 mg/dL 04/04/2025 3:26 PM EDT [facility] Globulin 3.2 gm/dL 04/04/2025 3:26 PM T [facility] Comment:Calculated Result A/G Ratio 1.3 g/dL 04/04/2025 3:26 PM EDT [facility] BUN/Creatinine Ratio 19.5 7.0 - 25.0 04/04/2025 3:26 PM T [facility] Anion Gap 10.7 5.0 - 15.0 mmol/L 04/04/2025 3:26 PM T [facility] eGFR 102.5 >60.0 mL/min/1.7 3 04/04/2025 3:26 PM [facility] Blood Venipuncture / Unknown 04/04/2025 2:47 PM EDT 04/04/2025 2:52 PM EDT Narrative [facility] - 04/04/2025 3:26 PM EDT GFR [...] Result [facility]
[address] [place] [address], documented in this encounter Visit Diagnoses Diagnosis [...] BPA Driven Protocol Open Order & [facility] Electrolyte Replacement Protocol Algorithm to [...] BPA Driven Protocol Open Order & [facility] Electrolyte Replacement Protocol Algorithm to [...] Salazar, KELL)1943 (Given - Provider: Anahy Marcelino, MULTIFOCAL LENS ASSEMBLER)[id number] (Canceled Entry - Provider: Anahy Marcelino M[employer]IFOCAL LENS ASSEMBLER - Comment: previously given) 0837 (Given - [...] medication prescribed for a lower pain scale. ([facility]) If given for pain, use the [...] Continuous Medication Order 04/09/2025 04/10/2025 04/11/2025 heparin 33302 units/250 mL (100 units/mL) in 0.45 % [...] BPA Driven Protocol Open Order & [facility] Electrolyte Replacement Protocol Algorithm to [...] as of this encounter Care Teams Medical Staffing Coordinator Relationship Specialty Start Date End Date Provider, [place] [address] PCP - General 05/09/23 documented as of this encounter
--- OUTSIDE RECORDS SUMMARY | 2025-04-08 15:34 | XMS_ITS | Encounter Summary ---
Author Organization [facility] Address [address] [place] [address] Care Team Providers Care Retail Sales Director Name Role Phone Provider, No Known Primary Care Provider Unavail able Reason for Visit * Auth/Cert Specialty Diagnoses / Procedures Referred By Bulmaro muniz Referred To Contact Diagnoses Right BKA infection Referral ID Status Reason Start Date Expiration Date Visits Re quested Visits Authorized [id number] 1 1 Encounter Details Date Type Department Care Team (Late st Contact Info) Description 04/08/2025 3:34 PM EDT Anesthesia Event [facility] OR [address] [place] [address] Ulises Hoffman MD [address] [place] [address] Jairo Brooks MD [address] [place] [address] Anesthesia Record Procedure Summary Procedure Name Responsible [...] LEG 04/07/25 0000 by Anum Snachez RN Wound 04/08/25; 0135; Righ t; anterior; [...] pur e alcohol) [facility] Utilities Answer Date Recorded In the past 12 months has [email or web address], oil, or water [employer] threatened to shut off services in your [...] Date: 04/08/25 Room / Location: [facility] OR [address] [place] [address] [facility] [place] Anesthesia Start: 1533 Anesthesia Stop: [...] ROS Abdominal Substance History - negative use ELECTRONIC PREPRESS OPERATOR negative line cook ROS Other Anesthesia Plan ASA 3 general [...] as of this encounter Care Teams Retail Sales Director Relationship Specialty Start Date End Date Provider, [place] [address] PCP - General 05/09/23 documented as of this encounter
--- OUTSIDE RECORDS SUMMARY | 2025-05-10 08:06 | XMS_ITS | Clinical Summary ---
Author Organization [facility] Address [address] [facility] [address] [place] [address] Phone Care Team Providers Care Will Call Order Clerk Name Role Phone Unavailable Unavailable Conditions or Problems No information available. Medications No information available. Medications Administered No information available. Allergies, Adverse Reactions, Alerts No information available. Results No information available. Plan of Care No information available. Procedures No information available. Vital Signs No information available. Immunizations No information available. Advance Directives No information available.
--- OUTSIDE RECORDS SUMMARY | 2025-05-10 08:07 | XMS_ITS | Patient Health Record ---
[facility] [address] [facility] [address] [place] [id number] Care Team Providers Care Pottery Decorator Name Role Phone Zeeshan Salazar Primary Care Provider [phone] Allergies No Known Allergies Medications Medication SIG [...] W/U Status Risk Notes Problem Essential hypertension (87075022) HTN [Hypertension] (401.9) Active confirmed appears resolved Problem Hypothyroidism (84209494) Hypothyroidism NOS (244.9) Active confirmed Problem Hyperlipidemia (12366640) Hyperlipidemia (272.4) Active confirmed Problem Constipation (95835682) Constipation, unspecified constipation type (K59.00) Active confirmed Problem History of pulmonary embolism on long-term anticoagulation therapy (38902208097408957 ) Hx pulmonary embolism (Z86.711) Active confirmed Problem Long-term current use of anticoagulant (538789337) Current use of manager terminal anticoagulation (Z79.01) Active confirmed Problem Adjustment disorder with anxious mood (23846600) Adjustment disorder with anxious mood (F43.22) Active confirmed Problem History of pulmonary embolus (251280853) History of pulmonary embolus (PE) (Z86.711) Active confirmed Problem Methicillin resistant Staphylococcus aureus infection (disorder) (706362692) Infection of wound due to methicillin resistant Staphylococcus aureus (MRSA) (A49.02) Active confirmed Problem Arthritis of knee (953802509) Arthritis of knee (M17.10) Active confirmed Problem Amputated below knee (584107833) Status post below knee amputation of right lower extremity (Z89.511) Active confirmed Problem Gastroesophageal reflux disease (561384311) Gastroesophageal reflux disease, unspecified whether esophagitis present [...]
--- OUTSIDE RECORDS SUMMARY | 2025-05-10 08:07 | XMS_ITS | Continuity of Care Document ---
Author Organization [facility] Infectious Disease -105 Address [address] [place] [address] Care Team Providers Care Department Store Door Greeter Name Role Phone SYBIL WILLIAM Primary Care [...] Time Methicillin resistant Staphylococ cus aureus infection 782584835 Active 2023 Amy jaramillo [place] Daja [facility] & [place] 4 10:16:00 High risk medication monitoring indicated 0886786524986 9103 Active 2023 Amy jaramillo [place] Daja [facility] & [place] 4 10:16:36 Problem Notes None recorded. Procedures Surgical History Date Name Laterality Status Provider Name and Address Organization Details Recorded Time 03/26/20 24 Venipuncture cancelled Luci Ag PA-C [address] , [place], [address], [facility] & [place] 03/18/2024 14:56:10 10/24/19 24 Venipuncture completed Luci Ag PA-C [address] [facility], [place], [address], [facility] & [place] 10/23/2023 10:53:19 07/25/19 24 [facility] [place] 07/25/2023 14:41:20 [facility] [place] 07/25/2023 13:57:05 Imaging Results None recorded. Procedure Notes None recorded. Medical Equipment None Reported. Allergies Allergen ID Allergen Name Allergen Category Reaction Reaction Severity Criticality Documentation Date Start Date Code Code System Note Provider Name and Address Organization Details Recorded Time 875755 cefdinir medicatio n Not available Not available Not available 06/02/2023 20097 RxNorm Isabel Kay [facility] & [place] 10:06:00 Medications Name Sig Start Date Stop [...] active Not Available Not Available Not Available [facility] 10 billion cell-200 mg [...] % 94 % 98.8 [degF] 41.7 kg/m2 273377. 12 g 140/96 mm[Hg] Amy Aquino [facility] & [place] 11:13:21 Social History Question Answer Notes LastModified by TeamDynamix ion Details LastModified Time Tobacco Smoking Status Never Smoker Isabel Rahul [facility] 06/02/2023 10:06:28 Do You Have An Advance Directive? No [email or web address] Information not available 04/28/2025 Are You Blind Or Do You Have Difficulty Seeing? No [email or web address] Information not available 04/28/2025 What Was The Date Of Your Most Recent Tobacco Screening? 04/20/2025 Information not available 04/28/2025 Are You Passively Exposed To Smoke? No [email or web address] Information not available 04/28/2025 Sex: Unknown Functional Status Question Answer Note LastModified by [employer] Details LastModified Time Do you use any illicit or recreational drugs? No [email or web address] Information not available 07/25/2023 What is your level of alcohol consumption? None [email or web address] Information not available 04/28/2025 Mental Status None recorded. Family History Nothing Reported. Medical History Condition Response Clotting Disorder Y Back Problems Y Hypertension Y Immunizations Vaccine Type Date Status Note Provider Nam e and Address Organization Details Recorded Time Td (adult), 2 Lf tetanus toxoid, preservative free, adsorbed 6 completed Sarah Vidal [facility], [place] - [facility] & [place] 07/25/2023 13:54:15 Past Encounters Encounter ID Performer Location Encounter Start Date Encounter Closed Date Diagnosis/Indication Diagnosis SNOMED-CT Code Diagnosis ICD10 Code Diagnosis IMO Codes Diagnosis Note [id number] Randy Torres MD [facility] Infectiou s Disease -[address] [place] [address] 04/28/2025 11:00:57 04/28/2025 11:33:23 Osteomyelitis 78666413 M86.9 519552 This patient has a recurrentc hronic osteomyeli [...] week. Methicilli n resistant Staphylococcus aureus infection 300286188 B95.62 5335971 As above Health Concerns Section Related Observation LastModified by Organization Detai ls LastModified Time None Recorded Concern Status LastModified by Organization Details LastModified Time None Recorded Payers Encounter Date Sequence Insurance Name Policy Number Policy Brantley Covered Member ID Brantley Member ID Guarantor Name 04/28/2025 2 [place] [place] - FFS/TRADITIONA L Won Dennis [id number] Won Dennis 04/28/2025 3 [employer] [place] (MED[place]AC[place] - HMO) Won Dennis [id number] Won Sonny Notes Date Note Type Note [...] issues tolerating the daptomycin. Randy Torres MD [address] [facility], [place], [address], [facility] - [facility] - [place] & [place] 04/28/2025 11:42:44
--- OUTSIDE RECORDS SUMMARY | 2025-05-10 08:07 | XMS_ITS | Continuity of Care Document ---
Author Organization [facility] Infectious Disease -105 Address [address] [facility] [address] [place] [address] Care Team Providers Care Homicide Squad Commanding Officer Name Role Phone SYBIL WILLIAM Primary Care [...] ne hyclate 100 mg capsule 2024 025 [facility], [address], [address], 05/05/2025 10:47:50 Patient TargetsNo targets recorded. Patient InstructionsNo instructions recorded. Reason for Referral None Reported. Results Created Date Observation Date Name Description Value Unit Range Abnormal Flag Note LastModifiedBy Organization Detail LastModifiedTime Result Notes None recorded. Problems Name Problem SNOMED Code Status Onset Date Resolution Date Notes Provider Name and Address Organization Details Recorded Time Methicillin resistant Staphylococ cus aureus infection 387415495 Active 2023 YVON Palomo [facility] & [place] 10:16:00 High risk medication monitoring indicated 5782542003813 9103 Active 2023 YVON Palomo [facility] & [place] 10:16:36 Problem Notes None recorded. Procedures Surgical History Date Name Laterality Status Provider Name and Address Organization Details Recorded Time 03/26/20 24 Venipuncture cancelled Luci Ag PA-C [address] , [place], [address], [facility] & [place] 03/18/2024 14:56:10 10/24/19 24 Venipuncture completed Luci Ag PA-C [address], [place], [address], [facility] & [place] 10/23/2023 10:53:19 07/25/19 24 Venipuncture completed [facility] & [place] 07/25/2023 14:41:20 amputation of lower limb completed [facility] & [place] 07/25/2023 13:57:05 Imaging Results None recorded. Procedure Notes None recorded. Medical Equipment None Reported. Allergies Allergen ID Allergen Name Allergen Category Reaction Reaction Severity Criticality Documentation Date Start Date Code Code System Note Provider Name and Address Organization Details Recorded Time 638476 cefdinir medicatio n Not available Not available Not available 06/02/2023 49549 RxNorm Isabel Kay [facility] & [place] 10:06:00 Medications Name Sig Start Date Stop [...] active Not Available Not Available Not Available [facility] 10 billion cell-200 mg sprinkle capsule [...] /min 94 % 94 % 41.8 kg/m2 457651. 71 g 97.5 [degF] 120/70 mm[Hg] Amy Farnsworth [facility] & [place] 10:30:54 Social History Question Answer Notes LastModified by Organizat ion Details LastModified Time Tobacco Smoking Status Never Smoker [facility] & [place] 06/02/2023 10:06:28 Do You Have An Advance Directive? No Information not available 04/28/2025 Are You Blind Or Do You Have Difficulty Seeing? No [email or web address] Information not available 04/28/2025 What Was The Date Of Your Most Recent Tobacco Screening? 04/20/2025 [email or web address] Information not available 04/28/2025 Are You Passively Exposed To Smoke? No [email or web address] Information not available 04/28/2025 Sex: Unknown Functional Status Question Answer Note LastModified by Organizat ion Details LastModified Time Do you use any illicit or recreational drugs? No [email or web address] Information not available 07/25/2023 What is your level of alcohol consumption? None [email or web address] Information not available 04/28/2025 Mental Status None recorded. Family History Nothing Reported. Medical History Condition Response Clotting Disorder Y Back Problems Y Hypertension Y Immunizations Vaccine Type Date Status Note Provider Nam kirt and Address Organization Details Recorded Time Td (adult), 2 Lf tetanus toxoid, preservative free, adsorbed 6 completed [facility] [place] [facility] [place] & [place] 07/25/2023 13:54:15 Past Encounters Encounter ID Performer Location Encounter Start Date Encounter Closed Date Diagnosis/Indication Diagnosis SNOMED-CT Code Diagnosis ICD10 Code Diagnosis IMO Codes Diagnosis Note [id number] Randy Torres MD [facility] Infectiou s Disease -[address] [place] [address] 04/28/2025 11:00:57 04/28/2025 11:33:23 Osteomyelitis 09611004 M86.9 262653 This patient has a recurrentc hronic osteomyeli [...] week. Methicilli n resistant Staphylococcus aureus infection 867483854 B95.62 5871006 As above [id number] Randy Torres MD [facility] Infectiou s Disease -[address] [place] [address] 05/05/2025 10:21:03 05/05/2025 10:37:01 Chronic osteomyelitis of right tibia 8462178192 081863 M86.461 32624152 This is recurrent and involves the right [...] today. Methicilli n resistant Staphylococcus aureus infection 029033417 A49.02 716156 This is the pathogen as above. Taking hig h risk medication 5233437209 38164 Z79.435 0506966 This is related to the long-term intravenou [...] Brantley Member ID Guarantor Name 05/05/2025 2 MEDICAID-[facility] - FFS/TRADITIO NAL Won Dennis [id number] Won Dennis 05/05/2025 1 [place] Won Dennis [id number] Won Dennis Notes Date Note Type Note [...] once daily at the infusion center in [facility]. His stump is doing well. All surgical incisions remain healed. There has been no undue pain or swelling. No redness. No drainage. Randy Torres MD [address] [facility], [place], [address], [place] - [facility] - [place] & [place] 05/05/2025 10:41:36
--- OUTSIDE RECORDS SUMMARY | 2025-05-10 08:07 | XMS_ITS | Data Portability ---
Author Organization [place] - [facility] & [place] [facility] ADMIN Address [address] [place] [id number] Care Team Providers Care Staff Nurse Midwife Name Role Phone SYBIL WILLIAM Primary Care Provider Assessment No assessment recorded. Plan of Treatment Reminders Order Date Submit Date Provider Last Modified By Organization Details Last Modified Time Details Appointments Establish ed Visit 15 min 2024 10:15A Jadyn Torres MD Not available Not available Not available Lab C-reactiv e protein, quantitat nasim, serum or plasma [address] Lab, [address]0 [facility], [place], [address], 05/02/2024 17:36:31 ESR (erythroc yte sedimenta tion rate), blood [address] Lab, 1140 [facility], [place], [address], 05/02/2024 17:36:31 C-reactiv e protein, quantitat nasim, serum or plasma 2023 024 [place] [address] [facility], [address], [address], [place], [address], 11/01/2023 08:08:32 ESR (erythroc yte sedimenta tion rate), blood 2023 024 [place] [address] [facility], [address], [address], [place], [address], 11/01/2023 08:08:32 CBC w/ auto diff 2023 024 [facility], [address], [place], [address], 10/24/2023 16:12:13 CMP, serum or plasma 2023 024 [facility], [address], [place], [address], 10/24/2023 16:42:07 Referral None recorded. Procedures None recorded. Surgeries None recorded. Imaging None recorded. Medication Orders doxycycli ne hyclate 100 mg capsule 2024 025 [facility], [address], [address], 05/05/2025 10:47:50 doxycycli ne hyclate 100 mg capsule [address], [address], [address], 05/05/2025 10:31:23 Patient TargetsNo targets recorded. Patient InstructionsNo instructions recorded. Reason for Referral None Reported. Results Created Date Observation Date Name Description Value Unit Range Abnormal Flag Note LastModifiedBy Organization Detail LastModifiedTime 10/24/1910/24/2023 CBC AUTO W DIFF WBC 6.9 K/uL 4.0-10 .5 Not Available [facility] ([facility]) [address], [place], [address], 10/24/2023 16:12:13 10/24/19 24 10/24/2023 CBC AUTO W DIFF RBC 5.7 M/mm3 4.7-6. 1 Not Available [facility] ([facility]) [address], [place], [address], 10/24/2023 16:12:13 10/24/19 24 10/24/2023 CBC AUTO W DIFF HGB 14.7 gm/dL 13.5-1 8.0 Not Available [facility] ([facility]) [address] , [place], [address], 10/24/2023 16:12:13 10/24/19 24 10/24/2023 CBC AUTO W DIFF HCT 46.0 % 42.0-5 2.0 Not Available [facility] ([facility]) [address] , [place], [address], 10/24/2023 16:12:13 10/24/19 24 10/24/2023 CBC AUTO W DIFF MCV 80.4 fL 78-100 Not Available [facility] ([facility]) [address] , [place], [address], 10/24/2023 16:12:13 10/24/19 24 10/24/2023 CBC AUTO W DIFF MCH 25.7 pg 27-31 low Not Available [facility] ([facility]) [address] , [place], [address], 10/24/2023 16:12:13 10/24/19 24 10/24/2023 CBC AUTO W DIFF MCHC 32.0 g/dL 32-36 Not Available [facility] ([facility]) [address] , [place], [address], 10/24/2023 16:12:13 10/24/19 24 10/24/2023 CBC AUTO W DIFF RDW 14.3 % 11.5-1 4.0 high Not Available [facility] ([facility]) [address] [place], [address], 10/24/2023 16:12:13 10/24/19 24 10/24/2023 CBC AUTO W DIFF platelet count 258 K/uL 150-45 0 Not Available [facility] ([facility]) [address] [facility] [place], [address], 10/24/2023 16:12:13 10/24/19 24 10/24/2023 CBC AUTO W DIFF MPV 9.6 fL 6-9.5 high Not Available [facility] ([facility]) [address], [place], [address], 10/24/2023 16:12:13 10/24/19 24 10/24/2023 CBC AUTO W DIFF neutrophil% 70.1 % 43-65 high Not Available [facility] ([facility]) [address], [place], [address], 10/24/2023 16:12:13 10/24/19 24 10/24/2023 CBC AUTO W DIFF lymphocyte% 18.4 % 20.5-4 5.5 low Not Available [facility] ([facility]) [address], [place], [address], 10/24/2023 16:12:13 10/24/19 24 10/24/2023 CBC AUTO W DIFF monocyte% 8.7 % 5.5-11 .7 Not Available [facility] ([facility]) [address] [facility], [place], [address], 10/24/2023 16:12:13 10/24/19 24 10/24/2023 CBC AUTO W DIFF eosinophil% 2.3 % 0.9-2. 9 Not Available [facility] ([facility]) [address] [place], [address], 10/24/2023 16:12:13 10/24/19 24 10/24/2023 CBC AUTO W DIFF basophil% 0.4 % 0.2-1. 0 Not Available [facility] ([facility]) [address] [place], [address], 10/24/2023 16:12:13 10/24/19 24 10/24/2023 CBC AUTO W DIFF immature granulocytes % 0.1 % 0.0-0. 8 Not Available [facility] ([facility]) [address], [place], [address], 10/24/2023 16:12:13 10/24/19 24 10/24/2023 CBC AUTO W DIFF nucleated red blood cells % 0.0 % Not Available [facility] ([facility]) [address], [place], [address], 10/24/2023 16:12:13 10/24/19 24 10/24/2023 CBC AUTO W DIFF neutrophil# 4.8 K/uL 2.2-4. 8 Not Available [facility] ([facility]) [address] [facility], [place], [address], 10/24/2023 16:12:13 10/24/19 24 10/24/2023 CBC AUTO W DIFF lymphocyte# 1.3 cell/ mcL 1.3-2. 9 Not Available [facility] ([facility]) [address], [place], [address], 10/24/2023 16:12:13 10/24/19 24 10/24/2023 CBC AUTO W DIFF monocyte# 0.6 cell/ mcL 0.3-0. 8 Not Available [facility] ([facility]) [address] [facility], [place], [address], 10/24/2023 16:12:13 10/24/19 24 10/24/2023 CBC AUTO W DIFF eosinophil# 0.2 cell/ mcL 0-0.2 Not Available [facility] ([facility]) [address] [facility], [place], [address], 10/24/2023 16:12:13 10/24/19 24 10/24/2023 CBC AUTO W DIFF basophil# 0.0 cell/ mcL 0.0-1. 0 Not Available [facility] ([facility]) [address] [place], [address], 10/24/2023 16:12:13 10/24/19 24 10/24/2023 CBC AUTO W DIFF immature gramulocytes # 0.01 K/uL Not Available [facility] ([facility]) [address], [place], [address], 10/24/2023 16:12:13 10/24/19 24 10/24/2023 CBC AUTO W DIFF nucleated red blood cells # 0.00 K/uL Not Available [facility] ([facility]) [address] , [place], [address], 10/24/2023 16:12:13 10/24/19 24 10/24/2023 CBC AUTO W DIFF manual differential NO Not Available [facility] ([facility]) [address] , [place], [address], 10/24/2023 16:12:13 10/24/19 24 10/24/2023 COMP METAB OLIC PANEL sodium 139 mmol/ L 136-14 5 Not Available [facility] ([facility]) [address], [place], [address], 10/24/2023 16:42:07 10/24/19 24 10/24/2023 COMP METAB OLIC PANEL potassium 4.0 mmol/ L 3.6-5. 0 Not Available [facility] ([facility]) [address] , [place], [address], 10/24/2023 16:42:07 10/24/19 24 10/24/2023 COMP METAB OLIC PANEL chloride 104 mmol/ L 98-107 Not Available [facility] ([facility]) [address] [place], [address], 10/24/2023 16:42:07 10/24/19 24 10/24/2023 COMP METAB OLIC PANEL carbon dioxide 28.1 mmol/ L 21.0-3 2.0 Not Available [facility] ([facility]) [address], [place], [address], 10/24/2023 16:42:07 10/24/19 24 10/24/2023 COMP METAB OLIC PANEL anion gap 10.9 Not Available [facility] ([facility]) [address], [place], [address], 10/24/2023 16:42:07 10/24/19 24 10/24/2023 COMP METAB OLIC PANEL glucose 99 mg/dL 70-120 Not Available [facility] ([facility]) [address], [place], [address], 10/24/2023 16:42:07 10/24/19 24 10/24/2023 COMP METAB OLIC PANEL BUN 16 mg/dL 7-18 Not Available [facility] ([facility]) [address] , [place], [address], 10/24/2023 16:42:07 10/24/19 24 10/24/2023 COMP METAB OLIC PANEL creatinine 0.9 mg/dL 0.6-1. 3 Not Available [facility] ([facility]) [address] , [place], [address], 10/24/2023 16:42:07 10/24/19 24 10/24/2023 COMP METAB OLIC PANEL glomerular filtration rate >60 mlper min 60- Not Available [facility] ([facility]) [address], [place], [address], 10/24/2023 16:42:07 10/24/19 24 10/24/2023 COMP METAB OLIC PANEL total protein 7.2 g/dL 6.4-8. 2 Not Available [facility] ([facility]) [address] , [place], [address], 10/24/2023 16:42:07 10/24/19 24 10/24/2023 COMP METAB OLIC PANEL albumin 3.6 g/dL 3.4-5. 0 Not Available [facility] ([facility]) [address], [place], [address], 10/24/2023 16:42:07 10/24/19 24 10/24/2023 COMP METAB OLIC PANEL globulin 3.6 Not Available [facility] ([facility]) [address], [place], [address], 10/24/2023 16:42:07 10/24/19 24 10/24/2023 COMP METAB OLIC PANEL alb/glob ratio 1.0 0.7-2 Not Available [facility] ([facility]) [address], [place], [address], 10/24/2023 16:42:07 10/24/19 24 10/24/2023 COMP METAB OLIC PANEL calcium 8.6 mg/dL 8.5-10 .5 Not Available [facility] ([facility]) [address], [place], [address], 10/24/2023 16:42:07 10/24/19 24 10/24/2023 COMP METAB OLIC PANEL bilirubin total 0.50 mg/dL 0.10-1 .00 Not Available [facility] ([facility]) [address], [place], [address], 10/24/2023 16:42:07 10/24/19 24 10/24/2023 COMP METAB OLIC PANEL AST (SGOT) 23 U/L 0-37 Not Available [facility] ([facility]) [address], [place], [address], 10/24/2023 16:42:07 10/24/19 24 10/24/2023 COMP METAB OLIC PANEL ALT (SGPT) 39 U/L 0-65 Not Available [facility] ([facility]) [address] , [place], [address], 10/24/2023 16:42:07 10/24/19 24 10/24/2023 COMP METAB OLIC PANEL alk phosphatase 80 U/L 46-116 Not Available [facility] ([facility]) [address] [facility], [place], [address], 10/24/2023 16:42:07 10/25/19 24 10/26/2023 SEDIM ENTAT ION RATE- WESTE RGREN sedimentatio n rate-westerg los 5 mm/HR 0-15 Not Available [facility] ([facility]) [address] [facility], [place], [address], 11/03/2023 15:11:19 10/25/19 24 10/27/2023 C-CHANA CTIVE PROTE IN, QUANT C-reactive protein, quant 15 mg/L 0-10 above high normal Not Available [facility] ([facility]) [address] [place], [address], 11/03/2023 15:11:21 04/23/20 24 04/23/2024 C-CHANA CTIVE PROTE IN (CRP) C-reactive protein, quant 1.1 mg/dL 0.05-0 .300 high Not Available [facility] ([facility]) [address] [facility], [place], [address], 04/23/2024 10:36:29 04/23/20 24 04/23/2024 SED RATE sed rate auto 4 0-15 Not Available [facility] ([facility]) [address] [facility], [place], [address], 04/23/2024 10:54:51 11/20/19 24 11/20/2023 arti melgar x US lwr RT ext [facility] Hospit al [address] [place] [address] Phone: Fax: Name: GAYATHRI DENNIS Exam Date: 024 : 1979 Age 43 years Gender : M Access ion: [id number] Physic lou: THAO BRADFORD [facility] Facili ty HSV: Outpat ient Exam: [...] Thank you for referr GAYATHRI Rodríguez to [facility]. Legall y authen ticate d by YANELIS Macias IVO 11-19 11:51: 02 CC'ed Logic: Orderi ng Provid er: SPENCER OSUNA Attend ing Provid er: SPENCER OSUNA Referr ing Provid er: SPENCER OSUNA Admitt ing Provid er: SPENCER [email or web address] [facility] [address] [facility], [place], [address], 11/20/2023 12:58:54 11/20/19 24 11/20/2023 CT, angio gram, chest , w/ contr ast [facility] [address] [place] [address] Phone: Fax: Name: GAYATHRI DENNIS Exam Date: : 1979 Age 43 years Gender : M Access ion: [id number] Physic lou: THAO BRADFORD Facili ty: [facility] Facili ty HSV: Outpat ient Exam: [...] you for referr ing GAYATHRI DENNIS to [facility]. Legall y authen ticate d by YANELIS Macias IVO 11-19 12:06: 58 CC'ed Logic: Orderi ng Provid er: SPENCER OSUNA Attend ing Provid er: SPENCER OSUNA Referr ing Provid er: SPENCER OSUNA Admitt ing Provid er: SPENCER OSUNA [email or web address] [facility] [address] [place] [address], [address], 11/21/2023 16:18:56 Result Notes Documentation Provider Name and Address Organization Details Recorded Time Ct, Angiogram, Chest, W/ Contrast : [place] [address] Name: MITCHELLWON LANDERS Exam Date: 11/20/2023 : 1980 Age 43 years Gender: M Physician: THAO BARNES Facility: [facility] Facility HSV: Outpatient Exam: CTA CHEST [...] you for referring WON DENNIS to [facility]. Legally authenticated by RENALDO DÍAZ 2023-11-20 12:06:58 CC'ed Logic: Ordering Provider: MOLLY OSUNA Attending Provider: MOLLY OSUNA Referring Provider: MOLLY OSUNA Admitting Provider: YVON De Jesus [facility] & [place] 11/21/2023 16:18:56 Problems Name Problem SNOMED Code Status Onset Date Resolution Date Notes Provider Name and Address Organization Details Recorded Time Methicillin resistant Staphylococ cus aureus infection 311620588 Active 2023 YVON Palomo [facility]NT [facility] & [place] 10:16:00 High risk medication monitoring indicated [id number] 9103 Active 2023 YVON Palomo [facility] - [place] [facility] [place] 10:16:36 Problem Notes None recorded. Procedures Surgical History Date Name Laterality Status Provider Name and Address Organization Details Recorded Time 03/26/20 24 Venipuncture cancelled Thao Barnes PA-C [address], [place], [address], [facility] & [place] 03/18/2024 14:56:10 10/24/19 24 Venipuncture completed Thao Barnes PA-C [address], [place], [address], [facility] & [place] 10/23/2023 10:53:19 07/25/19 24 [facility] [place] 07/25/2023 14:41:20 amputation of lower limb completed [facility] & [place] 07/25/2023 13:57:05 Imaging Results None recorded. Procedure Notes None recorded. Medical Equipment None Reported. Allergies Allergen ID Allergen Name Allergen Category Reaction Reaction Severity Criticality Documentation Date Start Date Code Code System Note Provider Name and Address Organization Details Recorded Time 519834 cefdinir medicatio n Not available Not available Not available 06/02/2023 87442 RxNorm Isabel Kay [facility] & [place] 10:06:00 Medications Name [...] active Not Available Not Available Not Available [facility] 10 billion cell-200 mg [...] Updated DateTime 4 182.88 cm 43.3 kg/m2 000806. 97 g 98 [degF] 95 /min 96 % 96 % 137/92 mm[Hg] Sarah Hendersonmayank [facility] & [place] 4 14:44:48 Date Recorded Body height Body mass index (BMI) Body weight Body temperature Oxygen saturation Oxygen saturation in Arterial blood by Pulse oximetry Heart rate Systolic And Diastolic Provider Name and Address Organization Details Last Updated DateTime 4 182.88 cm 43.2 kg/m2 773384. 81 g 98.6 [degF] 95 % 95 % 86 /min 134/84 mm[Hg] Amy Aquino [facility] & [place] 4 08:59:12 Date Recorded Body height Body mass index (BMI) Body weight Body temperature Oxygen saturation Oxygen saturation in Arterial blood by Pulse oximetry Heart rate Systolic And Diastolic Provider Name and Address Organization Details Last Updated DateTime 4 182.88 cm 42.9 kg/m2 318333. 19 g 98 [degF] 94 % 94 % 70 /min 140/80 mm[Hg] Kalie Gibbs [facility] & [place] 4 09:24:00 Date Recorded Heart rate Body height Oxygen saturation Oxygen saturation in Arterial blood by Pulse oximetry Body temperature Body mass index (BMI) Body weight Systolic And Diastolic Provider Name and Address Organization Details Last Updated DateTime 5 85 /min 180.34 cm 94 % 94 % 98.8 [degF] 41.7 kg/m2 810490. 12 g 140/96 mm[Hg] Amy Aquino [facility] & [place] 5 11:13:21 Date Recorded Body height Heart rate Oxygen saturation Oxygen saturation in Arterial blood by Pulse oximetry Body mass index (BMI) Body weight Body temperature Systolic And Diastolic Provider Name and Address Organization Details Last Updated DateTime 5 180.34 cm 90 /min 94 % 94 % 41.8 kg/m2 812646. 71 g 97.5 [degF] 120/70 mm[Hg] Amy SANZ [facility] & [place] 5 10:30:54 Social History Question Answer Notes LastModified by [employer] Details LastModified Time Tobacco Smoking Status Never Smoker Isabel Abdullahiey [facility] & [place] 06/02/2023 10:06:28 Do You Have An Advance Directive? [email or web address] Information not available 04/28/2025 Are You Blind Or Do You Have Difficulty Seeing? No [email or web address] Information not available 04/28/2025 What Was The Date Of Your Most Recent Tobacco Screening? 04/20/2025 [email or web address] Information not available 04/28/2025 Are You Passively Exposed To Smoke? No [email or web address] Information not available 04/28/2025 Sex: Unknown Functional Status Question Answer Note LastModified by [employer] Details LastModified Time Do you use any illicit or recreational drugs? No [email or web address] Information not available 07/25/2023 What is your level of alcohol consumption? None [email or web address] Information not available 04/28/2025 Mental Status None recorded. Family History Nothing Reported. Medical History Condition Response Clotting Disorder Y Back Problems Y Hypertension Y Immunizations Vaccine Type Date Status Note Provider Shay moralez and Address Organization Details Recorded Time Td (adult), 2 Lf tetanus toxoid, preservative free, adsorbed 6 completed Sarah jaramillo, [place] - [facility] [place] [facility] [place] 07/25/2023 13:54:15 Past Encounters Encounter ID Performer Location Encounter Start Date Encounter Closed Date Diagnosis/Indication Diagnosis SNOMED-CT Code Diagnosis ICD10 Code Diagnosis IMO Codes Diagnosis Note [id number] Randy Torres MD [facility] [address] [place] [id number] 06/02/2023 09:54:50 06/02/2023 10:26:43 Osteomyelitis 17024648 M86.9 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 Influenza caused by Influenza A virus 862854613 J09.X2 Resolved.. No further oseltamivi r needed. High risk medication monitoring indicated 0203126976 9321123 Z76.89 Related to the daptomycin . I will check a total CK and continue to follow serial levels of this enzyme to make sure he develops no rhabdomyol ysis. 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 Methicilli n resistant Staphylococcus aureus infection 692948746 A49.02 As above High risk medication monitoring indicated 9666668666 2627170 Z76.89 This is related to the daptomycin . I will continue to monitor his total CK levels closely. 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 Methicilli n resistant Staphylococcus aureus infection 603316668 A49.02 As above Adverse re action to drug 52954336 T50.905A Related to doxycyclin e. This is gastrointe stinal in nature. I will check his liver function testing to make sure he is not developing any hepatotoxi city. I will drop the dose to 100 mg per day. I want him to continue to take it with food. I will re-evaluat e next week. 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 Methicilli n resistant Staphylococcus aureus infection 149979369 A49.02 As above [id number] Thao Barnes PA-C [facility] [address] [place] [address] 07/25/2023 13:39:19 07/26/2023 06:33:52 Deep venous thrombosis 964953032 I82.409 Patient has a history of osteomyeli [...] performed when patient was hospitaliz ed at [facility] on May 26, 2023 with normal antithromb in 3 activity. No evidence of factor 5 Leiden mutation. Discussed with patient will order additional labs for further evaluation acquired hypercoagu lable disorder today. Discussed will likely continue on least the prophylact ic dose of Eliquis lifelong due to separate occurrence s of blood clots. Pulmonary embolism 90081 003 I26.99 Patient has a history of [...] s of blood clots. Anticoagulant therapy 18 8397906 Z79.01 Patient continues on Eliquis 5 mg 1 tab p.o. b.i.d.. He is tolerating without trouble. Discussed will likely continue on least the prophylact ic dose of Eliquis lifelong due to separate occurrence s of blood clots. [id number] Thao Barnes PA-C [facility] [address] [place] [address] 10/24/2023 14:29:27 10/24/2023 15:33:34 Deep venous thrombosis 021444164 I82.409 Patient has a history of osteomyeli [...] performed when patient was hospitaliz ed at [facility] on May 26, 2023 with [...] Will follow up labs today. Pulmonary embolism 92641 003 I26.99 Patient has a history of [...] follow up labs today. Anticoagulant therapy 18 4355976 Z79.01 Patient continues on Eliquis 5 mg 1 tab p.o. b.i.d.. He is tolerating without trouble. Discussed will continue on least the prophylact ic dose of Eliquis lifelong due to separate occurrence s of blood clots. Will follow up venous duplex of lower extremity and chest CTA to make sure no evidence of embolism before reducing Eliquis dose to 2.5 mg b.i.d. 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 Methicilli n resistant Staphylococcus aureus infection 919027031 A49.02 As above High risk medication monitoring indicated 7690264562 8559410 Z76.89 This is related to the chronic suppressiv e doxycyclin e. I reviewed his liver function testing from yesterday. There is no evidence of any hepatotoxi city. I will continue to monitor this at each visit. I also counseled him about the risk of photosensi tivity with doxycyclin e. 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 Methicilli n resistant Staphylococcus aureus infection [id number] A49.02 As above [id number] Randy Torres MD [facility] Infectiou s Disease -105 [address] [facility] [address] [place] [address] 04/28/2025 11:00:57 04/28/2025 11:33:23 Osteomyelitis [id number] M86.9 [id number] This patient has a recurrentc hronic osteomyeli [...] week. Methicilli n resistant Staphylococcus aureus infection [id number] B95.62 [id number] As above [id number] Ranyd Torres MD [facility] Infecti[facility] s Disease -105 [address] [facility] [address] [place] [address] 05/05/2025 10:21:03 05/05/2025 10:37:01 Chronic osteomyelitis of right tibia [id number] M86.461 [id number] This is recurrent and involves the right [...] today. Methicilli n resistant Staphylococcus aureus infection [id number] A49.02 [id number] This is the pathogen as above. Taking hig h risk medication [id number] Z79.787 [id number] This is related to the long-term intravenou [...] ID Guarantor Name 01/27/2024 1 [place] [id number] Won Dennis [id number] Won Dennis 05/01/2025 2 MEDICAID-[facility] HEALTH CHOICES - FFS/TRADITIONA L Won Dennis [id number] Won Dennis 05/01/2025 1 [place] Won Dennis [id number] Won Dennis 04/28/2025 1 [employer]MA[employer] Won Dennis [id number] Won Dennis 04/30/2025 3 [facility] (MEDICAID REPLACEMENT - HMO) Won Dennis [id number] Won Dennis Notes Date Note Type Note [...] Labs performed when patient was hospitalized at [facility] on May 26, 2023 with [...] follow up labs today. Thao Barnes PA-C [address], [place], [address], [place] - [facility] - [place] & [place] 10/24/2023 15:43:34 10/25/2023 text/html ROS as noted [...] well. Randy Torres MD [address], [place], [address], [facility] 10/25/2023 09:16:07 04/23/2024 text/html ROS [...] well. Randy Torres MD [address], [place], [address], [facility] & [place] 04/23/2024 09:31:22 04/28/2025 text/html ROS as noted [...] daptomycin and is now referred back to mi. He has been on intravenous daptomycin for almost 4 weeks. The swelling in his stump has gone down. There is no persisting redness or pain. No fever. No issues tolerating the daptomycin. Randy Torres MD [address], [place], [address], [facility] - [facility] & [place] 04/28/2025 11:42:44 05/05/2025 text/html ROS as noted in the HPI This is a 44-year-old white male who is following up with mi for a recurrent osteomyelitis of his right [...] once daily at the infusion center in [facility]. His stump is doing well. All surgical incisions remain healed. There has been no undue pain or swelling. No redness. No drainage. Randy Torres MD [address], [place], [address], [facility] - [facility] - [place] & [place] 05/05/2025 10:41:36
--- OUTSIDE RECORDS SUMMARY | 2025-05-10 08:09 | XMS_ITS | Encounter Summary ---
Author Organization [facility] Address [address] [place] [address] Care Team Providers Care Heat Plant Specialist Name Role Phone Provider, No Known [...] 2:25 PM EDT Cherri Grimm RN * [place] Suicide Severity Rating Scale (Screener/Recent Self-Report) Question [...] documented as of this encounter Care Teams Heat Plant Specialist Relationship Specialty Start Date End Date Provider, No Known [facility] [address] PCP - General 05/09/23 documented as of this encounter
--- OUTSIDE RECORDS SUMMARY | 2025-05-10 08:09 | XMS_ITS | Encounter Summary ---
Author Organization Healthcare Address [address] [place] [address] Care Team Providers Care Medical Records Secretary Name Role Phone Unavailable Primary Care Provider Unavailabl e Encounter Details Date Type Department Care Team (Late st Contact Info) Description 05/13/2023 Lab Requisition [facility] [address] [place] [address] Sushil Dean MD [address] [facility]. [address] [place] [address] Encounter for general adult medical examination without [...] Final Result Performing Organization Address [facility] Co de Phone Number [facility] [address] [place] [address] * Anaerobic Culture (05/13/2023 9:17 AM EDT) Culture No growth at day 4 05/20/2023 10:35 AM EST [facility] Bone 05/13/2023 9:17 AM EDT 05/13/2023 1:25 PM EDT us Sushil Dean MD LAB MICROBIOLOGY - GENERAL O RDERABLES Final Result Performing Organization Address [facility] de Phone Number [facility] [address] [place] [address] * Bone Culture and Gram Stain (05/13/2023 [...] Final Result Performing Organization Address [facility] de Phone Number [facility] [address] [place] [address] documented in this encounter Visit Diagnoses Diagnosis Encounter for general adult medical examination without abnormal findings documented in this encounter
--- OUTSIDE RECORDS SUMMARY | 2025-05-10 08:09 | XMS_ITS | Encounter Summary ---
Author Organization Healthcare Address [address] [place] [address] Care Team Providers Care Medical Bill Processor Name Role Phone Unavailable Primary Care Provider Unavailabl e Encounter Details Date Type Department Care Team (Late st Contact Info) Description 10/19/2022 Lab Requisition [facility] [address] [place] [address] Sushil Dean MD [address] [place] [address] Encounter for general adult medical examination without [...] by MALDI tof mass spectrometry using the [employer] database and is for research use only. The organism value for this result has been updated. These results have been appended to the previously preliminary verified report. Bone Specimen from bone / Unknown 10/19/2022 5:17 PM EDT 10/19/2022 9:49 PM EDT Sushil Dean MD LAB MICROBIOLOGY - GENERAL O RDERABLES Final Result Performing Organization Address [facility] de Phone Number HEALTHCARE LAB [address] [place] [address] * Bone Culture and Gram Stain (10/19/2022 5:17 PM EDT) Culture No growth at day 4 2022 8:14 AM EDT HEALTHCARE LAB Gram Stain Result Few Polymorphonuclear leukocytes 10/23/2022 8:14 AM EDT HEALTHCARE LAB Gram Stain Result No organisms seen 10/23/2022 8:14 AM EDT [facility] Bone Specimen from bone / Unknown 10/19/2022 5:17 PM EDT 10/19/2022 9:49 PM EDT Sushil Dean MD LAB MICROBIOLOGY - GENERAL O RDERAADDI Final Result Performing Organization Address [facility] Phone Number HEALTHCARE [facility] [address] [place] [address] documented in this encounter Visit Diagnoses Diagnosis Encounter for general adult medical examination without abnormal findings documented in this encounter
--- OUTSIDE RECORDS SUMMARY | 2025-05-10 08:09 | XMS_ITS | Encounter Summary ---
Author Organization Healthcare Address [address] [place] [address] Care Team Providers Care Continuous Miner Name Role Phone Unavailable Primary Care Provider Unavailabl e Encounter Details Date Type Department Care Team (Late st Contact Info) Description 10/01/2022 Lab Requisition [facility] [address] [place] [address] Sushil Dean MD [address] [facility]. [address] [place] [address] Encounter for general adult medical examination without [...] has been identified using the FDA Approved [employer] CA System The organism value for this [...] 10/04/2022 2:17 PM EDT Refer to culture [id number] FOR SUSCEPTIBILITIES ON NEELIMA ALBICANS us Sushil Dean MD LAB MICROBIOLOGY - GENERAL O RDERABLES Final Result [facility]ARE [facility] [address] [place] [address] documented in this encounter Visit Diagnoses Diagnosis Encounter for general adult medical examination without abnormal findings documented in this encounter
--- OUTSIDE RECORDS SUMMARY | 2025-05-10 08:09 | XMS_ITS | Encounter Summary ---
Author Organization Healthcare Address [address] [place] [address] Care Team Providers Care Channel Account Manager Name Role Phone Unavailable Primary Care Provider Unavailabl e Encounter Details Date Type Department Care Team (Late st Contact Info) Description 08/12/2022 Lab Requisition [facility] [address] [place] [address] Sushil Dean MD [address] [place] [address] Encounter for general adult medical examination without [...] has been identified using the FDA Approved [employer] CA System The organism value for this [...] Result Performing Organization Address City/[facility] de Phone Number HEALTHCARE LAB [address] [place] [address] * Bone Culture and Gram Stain (08/12/2022 [...] Result Performing Organization Address City/[facility] de Phone Number [facility] [address] [place] [address] documented in this encounter Visit Diagnoses Diagnosis Encounter for general adult medical examination without abnormal findings documented in this encounter
--- OUTSIDE RECORDS SUMMARY | 2025-05-10 08:09 | XMS_ITS | Clinical Summary ---
Author Organization [facility] Address [address] [place] [address] Care Team Providers Care Lead Systems Analyst Name Role Phone Provider, No Known [...] Discontinue d(Stop Taking at Discharge) Lactobacillus- Inulin ([facility] [employer] [facility]) capsule Take 200 mg by [...] Description 04/08/2025 3:34 PM ED[place] [address] [place] [phone] Ulises Hoffman MD [place], Jeremy B., MD 04/08/2025 2:45 PM EDT - 04/08/2025 4:04 PM EDT Surgery PSYCHIATRIC OR [address] [place] [address] Sushil Dean Jr., MD LEG DEBRIDEMENT AND IRRIGATION 04/07/2025 8:36 PM EDT Anesthesia Event PSYCHIATRIC OR [address] [place] [address] Luci Alonso DO 04/07/2025 6:00 PM EDT - 04/07/2025 6:52 PM EDT Surgery PSYCHIATRIC OR [address] [place] [address] Sushil Dean Jr., MD LEG DEBRIDEMENT, IRRIGATION 04/04/2025 4:10 PM EDT - 04/11/2025 1:58 PM EDT Hospital Encounter PSYCHIATRIC 5G [address] [place] [address] Mario Crowley DO Anderson, Laurie, [...] Recorded In the past 12 months has intelloCut, gas, oil, or water [employer] threatened to shut off services in your [...] Not on file Preferred Language Citizen Of [place] 04/07/2025 Sex and Gender Information Value Date [...] this topic Medical Devices Implanted Type Area Wine Bottle Inspector Device Identifier Shelf Expiration Date Model / Serial / Lot Dev Wnd/Cls Contrl Tiss [employer]ata[employer] Spiral Pls Pds Ct1 0 22cm - [id number] Implanted:Qty: 1 on 04/08/2025 by Sushil Dean Jr., MD at [facility] Implant Right: Leg [employer] 12/07/2025 [id number] / / [id number] Procedures Procedure Name Priority [...] - 10.80 10*3/mm3 04/11/2025 4:02 AM EDT [facility] RBC 4.70 4.14 - 5.80 10*6/mm3 04/11/2025 4:02 AM EDT [facility] Hemoglobin 12.8(L) 13.0 - 17.7 g/dL 04/11/2025 4:02 AM EDT [facility] LAB[facility] Hematocrit 40.5 37.5 - 51.0 % 04/11/2025 4:02 AM EDT [facility] MCV 86.2 79.0 - 97.0 fL 04/11/2025 4:02 AM EDT [facility] MCH 27.2 26.6 - 33.0 pg 04/11/2025 4:02 AM EDT [facility] MCHC 31.6 31.5 - 35.7 g/dL 04/11/2025 4:02 AM EDT [facility] RDW 12.9 12.3 - 15.4 % 04/11/2025 4:02 AM EDT [facility] RDW-SD 40.5 37.0 - 54.0 fl 04/11/2025 4:02 AM EDT [facility] MPV 9.2 6.0 - 12.0 fL 04/11/2025 4:02 AM EDT [facility] Platelets 267 140 - 450 10*3/mm3 04/11/2025 4:02 AM EDT [facility] Neutrophil % 59.5 42.7 - 76.0 % 04/11/2025 4:02 AM EDT [facility] Lymphocyte % 26.3 19.6 - 45.3 % 04/11/2025 4:02 AM EDT [facility] LAB[facility] Monocyte % 9.3 5.0 - 12.0 % 04/11/2025 4:02 AM [facility] Eosinophil % 4.1 0.3 - 6.2 % 04/11/2025 4:02 AM EDT PSY[facility]IATRIC LABORATORY Basophil % 0.4 0.0 - 1.5 % 04/11/2025 4:02 [facility] Immature Grans % 0.4 0.0 - 0.5 % 04/11/2025 4:02 AM [facility] Neutrophils, Absolute 4.69 1.70 - 7.00 10*3/mm3 04/11/2025 4:02 AM [facility] Lymphocytes, Absolute 2.07 0.70 - 3.10 10*3/mm3 04/11/2025 4:02 AM [facility] Monocytes, Absolute 0.73 0.10 - 0.90 10*3/mm3 04/11/2025 4:02 AM [facility] Eosinophils, Absolute 0.32 0.00 - 0.40 10*3/mm3 04/11/2025 4:02 AM [facility] Basophils, Absolute 0.03 0.00 - 0.20 10*3/mm3 04/11/2025 4:02 AM [facility] Immature Grans, Absolute 0.03 0.00 - 0.05 10*3/mm3 04/11/2025 4:02 AM [facility] nRBC 0.0 0.0 - 0.2 /100 WBC 04/11/2025 4:02 AM [facility] Blood Venipuncture / Unknown 04/11/2025 3:40 AM EDT 04/11/2025 3:59 AM EDT Suhsil eDan Jr., MD LAB BLOOD ORDERABLES Fi nal Result PS[facility]ATRIC LABORATORY
[address] [place] [address], * (ABNORMAL) Comprehensive Metabolic Panel (04/11/2025 3:40 AM EDT) Only the most recent of2 resultswithin the time period is included. Glucose 108(H) 65 - 99 mg/dL 04/11/2025 4:19 AM EDT [facility] LAB[facility] BUN 12.5 6.0 - 20.0 mg/dL 04/11/2025 4:19 AM EDT [facility] LAB[facility] Creatinine 0.68(L) 0.76 - 1.27 mg/dL 04/11/2025 4:19 AM EDT [facility] LAB[facility] Sodium 140 136 - 145 mmol/L 04/11/2025 4:19 AM EDT [facility] Potassium 3.8 3.5 - 5.2 mmol/L 04/11/2025 4:19 AM EDT [facility] LAB[facility] Chloride 105 98 - 107 mmol/L 04/11/2025 4:19 AM EDT [facility] LAB[facility] CO2 28.2 22.0 - 29.0 mmol/L 04/11/2025 4:19 AM EDT [facility] LAB[facility] Calcium 8.2(L) 8.6 - 10.5 mg/dL 04/11/2025 4:19 AM EDT [facility] LAB[facility] Total Protein 6.1 6.0 - 8.5 g/dL 04/11/2025 4:19 AM EDT [facility] LAB[facility] Albumin 3.1(L) 3.5 - 5.2 g/dL 04/11/2025 4:19 AM EDT [facility] LAB[facility] ALT (SGPT) 52(H) 1 - 41 U/L 04/11/2025 4:19 AM EDT [facility] LAB[facility] AST (SGOT) 40 1 - 40 U/L 04/11/2025 4:19 AM EDT [facility] LAB[facility] Alkaline Phosphatase 99 39 - 117 U/L 04/11/2025 4:19 AM EDT [facility] LAB[facility] Total Bilirubin 0.2 0.0 - 1.2 mg/dL 04/11/2025 4:19 AM EDT [facility] LAB[facility] Globulin 3.0 gm/dL 04/11/2025 4:19 AM EDT [facility] LAB[facility] Comment:Calculated Result A/G Ratio 1.0 g/dL 04/11/2025 4:19 AM EDT [facility] LAB[facility] BUN/Creatinine Ratio 18.4 7.0 - 25.0 04/11/2025 4:19 AM EDT [facility] LAB[facility] Anion Gap 6.8 5.0 - 15.0 mmol/L 04/11/2025 4:19 AM EDT [facility] LAB[facility] eGFR 117.5 >60.0 mL/min/1.7 3 04/11/2025 4:19 AM EDT [facility] LAB[facility] Blood Venipuncture / Unknown 04/11/2025 3:40 AM EDT 04/11/2025 3:56 AM EDT [facility]ORY - 04/11/2025 4:19 AM [...] race as a factor us Rosario Hill LMSW LAB BLOOD ORDERABLES Final Result PSYCHIATRIC LABORATORY
[address] [id number], * Heparin Anti-Xa (04/10/2025 3:46 AM EDT) Only the most recent of13 resultswithin the time period is included. Heparin Anti-Xa (UFH) 0.35 0.30 - 0.70 IU/ml 04/10/2025 4:23 AM EDT [facility] LAB[facility]ORY Blood Venipuncture / Unknown 04/10/2025 3:46 AM EDT 04/10/2025 3:53 AM EDT Larisa Hamilton [facility] LAB BLOOD ORDERABLES Final R esult PSYCHIATRIC LABORATORY
[address] [place] [address], * (ABNORMAL) Basic Metabolic Panel (04/10/2025 3:46 AM EDT) Only the most recent of6 resultswithin the time period is included. [facility] Glucose 125(H) 65 - 99 mg/dL 04/10/2025 4:20 AM EDT PS[facility]IATRIC LABORATORY BUN 15.9 6.0 - 20.0 mg/dL 04/10/2025 4:20 AM EDT [facility] LAB[facility]ORY Creatinine 0.77 0.76 - 1.27 mg/dL 04/10/2025 4:20 AM EDT [facility]AT[facility] LAB[facility]ORY Sodium 137 136 - 145 mmol/L 04/10/2025 4:20 AM EDT [facility] LAB[facility] Potassium 3.9 3.5 - 5.2 mmol/L 04/10/2025 4:20 AM EDT [facility] LAB[facility]ORY Chloride 102 98 - 107 mmol/L 04/10/2025 4:20 AM EDT [facility] LAB[facility] CO2 26.9 22.0 - 29.0 mmol/L 04/10/2025 4:20 AM EDT [facility] LAB[facility] Calcium 7.9(L) 8.6 - 10.5 mg/dL 04/10/2025 4:20 AM EDT [facility] LAB[facility]ORY BUN/Creatinine Ratio 20.6 7.0 - 25.0 04/10/2025 4:20 AM EDT [facility] LAB[facility] Anion Gap 8.1 5.0 - 15.0 mmol/L 04/10/2025 4:20 AM EDT [facility] LAB[facility]ORY eGFR 113.2 >60.0 mL/min/1.7 3 04/10/2025 4:20 AM EDT [facility] LAB[facility] Blood Venipuncture / Unknown 04/10/2025 3:46 AM EDT 04/10/2025 3:52 AM EDT Narrative PSYCHIATRIC LABORATORY - 04/10/2025 4:20 AM EDT GFR [...] LAB BLOOD ORDERABLES Final Resul t PSYCHIATRIC LABORATORY
[address] [place] [address], * Wound Culture - Swab, Leg, Right (04/08/2025 3:40 PM EDT) Only the most recent of3 resultswithin the time period is included. Wound Culture No growth at 3 days ALIZA 04/11/2025 10:40 AM EDT [facility] Gram Stain Few (2+) WBCs seen 04/11/2025 10:40 AM EDT PS[facility]ATRIC LAB[facility]ATORY Gram Stain No organisms seen 04/11/2025 10:40 AM EDT [facility] LAB[facility]ORY Swab Structure of right lower limb / Unknown 04/08/2025 3:40 PM EDT 04/08/2025 8:05 PM EDT Sushil Dean Jr., MD MICROBIOLOGY - GENERAL ORDERABLES Final Result Performing Organization Address City/[facility]/ZIP Co de Phone Number [facility]
[address] [place] [address], PSYCHIATRIC LABORATORY
[address] [place] [address], [place] [phone] * Anaerobic Culture - Swab, Leg, Right (04/08/2025 3:40 PM EDT) Only the most recent of4 resultswithin the time period is included. Anaerobic Culture No anaerobes isolated at 5 days ALIZA 04/13/2025 7:24 AM EDT [facility] Swab Structure of right lower limb / Unknown 04/08/2025 3:40 PM EDT 04/08/2025 8:05 PM EDT Sushil Dean Jr., MD MICROBIOLOGY - GENERAL ORDERABLES Final Result Performing Organization Address [facility] Co de Phone Number [facility]
[address] [place] [address], * Scan Slide (04/08/2025 8:41 AM EDT) RBC Morphology Normal Normal 04/08/2025 11:02 AM EDT PS[facility]ATRIC LAB[facility]ATORY WBC Morphology Normal Normal 04/08/2025 11:02 AM EDT [facility] LAB[facility] Platelet Estimate Adequate Normal 04/08/2025 11:02 AM EDT [facility] LAB[facility]ORY Clumped Platelets Present None Seen 04/08/2025 11:02 AM EDT [facility] LAB[facility]ORY Blood Venipuncture / Unknown 04/08/2025 8:41 AM EDT 04/08/2025 9:10 AM EDT Una Perla PharmD LAB BLOOD ORDERABLES Final R esult Performing Organization Address City/[facility]/ZIP Co de Phone Number PSYCHIATRIC LABORATORY
[address] [place] [address], [place] [phone] * FL C Arm During Surgery (04/07/2025 9:32 PM EDT) Narrative SYSTEMGENERATED, DOCUMENTATION - 04/07/2025 9:38 PM EDT This procedure was auto-finalized with no dictation required. us Sushil Dean Jr., MD IMG FLUOROSCOPY ORDERAB LES Final Result * Tissue / Bone Culture - Tissue, Leg, Right (04/07/2025 9:13 PM EDT) Tissue Culture No growth at 3 days ALIZA 04/11/2025 10:36 AM EDT [facility] Gram Stain Rare (1+) WBCs seen 04/11/2025 10:36 AM EDT PS[facility]IAT[facility]IC LAB[facility]ORY Gram Stain No organisms seen 04/11/2025 10:36 AM EDT [facility] LAB[facility]ORY Tissue Structure of right lower limb / Unknown 04/07/2025 9:13 PM EDT 04/08/2025 4:54 AM EDT us Sushil Dean Jr., MD MICROBIOLOGY - GENERAL ORDERABLES Final Result [facility]
[address] [place] [address], PSYCHIATRIC LABORATORY
[address] [place] [address], * BH AN ETT AIRWAY (04/07/2025 8:44 [...] [place] 04/07/2025 9:58 AM EDT Workstation ID: [id number] Narrative 04/07/2025 9:58 AM EDT MRI TIBIA [...] [place] 04/07/2025 9:58 AM EDT Workstation ID: [id number] Sushil Dean Jr., MD IMG MRI ORDERABLES Mary Beth l Result * Potassium (04/06/2025 7:16 PM EDT) Potassium 4.0 3.5 - 5.2 mmol/L 04/06/2025 7:53 PM EDT PS[facility]IATRIC LABORATORY Blood Venipuncture / Unknown 04/06/2025 7:16 PM EDT 04/06/2025 7:35 PM EDT Jason Álvarez DO LAB BLOOD ORDERABLES Final Resul t Performing Organization Address City/[facility]/ZIP Co de Phone Number PSYCHIATRIC LABORATORY
[address] [place] [address], * CK (04/05/2025 12:15 PM EDT) Creatine Kinase 140 20 - 200 U/L 04/05/2025 1:31 PM EDT [facility]IC LAB[facility]ORY Blood Venipuncture / Unknown 04/05/2025 12:15 PM EDT 04/05/2025 1:03 PM EDT Carlton Mead MD LAB BLOOD ORDERABLES Final R esult Performing Organization Address City/[facility]/ZIP Co de Phone Number PSYCHIATRIC LABORATORY
[address] [place] [address], * (ABNORMAL) aPTT (04/05/2025 3:54 AM EDT) Only the most recent of2 resultswithin the time period is included. PTT 35.3(L) 60.0 - 90.0 seconds 04/05/2025 4:31 AM EDT [facility] LAB[facility] Blood Venipuncture / Unknown 04/05/2025 3:54 AM EDT 04/05/2025 4:15 AM EDT Narrative PS[facility]CHIATRIC LABORATORY - 04/05/2025 4:31 AM EDT PTT = The equivalent PTT values for the therapeutic range of heparin levels at 0.3 to 0.5 U/ml are 60 to 70 seconds. [employer] LAB BLOOD ORDERABLES Final R esult Performing Organization Address City/[facility]/ZIP Co de Phone Number PSYCHIATRIC LABORATORY
[address] [place] [address], * (ABNORMAL) Protime-INR (04/05/2025 12:18 AM EDT) Pathologist [facility] Protime 15.9(H) 12.2 - 15.3 Seconds 04/05/2025 12:53 AM EDT PSY[facility]IATRIC LABORATORY INR 1.19(H) 0.89 - 1.12 04/05/2025 12:53 AM EDT [facility]AT[facility]IC LAB[facility]ORY Blood Venipuncture / Unknown 04/05/2025 12:18 AM EDT 04/05/2025 12:37 AM EDT Klash PharmD LAB BLOOD ORDERABLES Final R esult Performing Organization Address City/[facility]/ZIP Co de Phone Number PSYCHIATRIC LABORATORY
[address] [place] [address], * POC Creatinine (04/04/2025 2:49 PM EDT) Pathologist [facility] Creatinine 1.10 0.60 - 1.30 mg/dL 04/07/2025 7:14 PM EDT PS[facility]IAT[facility]IC LABORATORY Comment:Serial Number: [id number] 7Operator: [id number] Venous Blood 04/04/2025 2:49 PM EDT 04/07/2025 7:14 PM EDT Jason Álvarez DO POINT OF CARE TEST ORDERABLES Fi nal Result Performing Organization Address [facility] Co de Phone Number PSYCHIATRIC LABORATORY
[address] [place] [address], * (ABNORMAL) Sedimentation Rate (04/04/2025 2:47 PM EDT) Sed Rate 51(H) 0 - 15 mm/hr 04/04/2025 3:06 PM EDT PS[facility]AT[facility]IC LABORATORY Blood Venipuncture / Unknown 04/04/2025 2:47 PM EDT 04/04/2025 2:52 PM EDT Mario Crowley LAB BLOOD ORDERABLES Fin al Result Performing Organization Address [facility] de Phone Number PSYCHIATRIC LABORATORY
[address] [place] [address], * (ABNORMAL) C-reactive Protein (04/04/2025 2:47 PM EDT) C-Reactive Protein 8.57(H) 0.00 - 0.50 mg/dL 04/04/2025 3:26 PM EDT PS[facility]IAT[facility]IC LABORATORY Blood Venipuncture / Unknown 04/04/2025 2:47 PM EDT 04/04/2025 2:52 PM EDT Mario Crowley DO LAB BLOOD ORDERABLES Fin al Result Performing Organization Address [facility] Co de Phone Number PSYCHIATRIC LABORATORY
[address] [place] [address], from Last 3 Months Additional Health Concerns [...] Of Support Discussed With: Patient Care Teams Lead Systems Analyst Relationship Specialty Start Date End Date Provider, No Known [facility] [place] [address] PCP - General 05/09/23
--- OUTSIDE RECORDS SUMMARY | 2025-05-10 08:09 | XMS_ITS | Encounter Summary ---
Author Organization [facility] Address [address] [place] [address] Care Team Providers Care Media Strategist Name Role Phone Unavailable Primary Care Provider Unavailabl e Encounter Details Date Type Department Care Team (Late st Contact Info) Description 10/03/2022 Lab Requisition [facility] Lab [address] [place] [address] Dalila Cox MD [address], [place] [id number] Encounter for general adult medical examination without [...] Culture Neelima albicans(A) 10/05/2022 11:58 AM EDT [facility] Comment: This result was determined by MALDI tof Mass spectrometry. This assay was developed and its performance characteristics determined by [facility] as appropriate for clinical purposes. [...] Edited Result - Final [facility] [address] [place] [address] documented in this encounter Visit Diagnoses Diagnosis Encounter for general adult medical examination without abnormal findings documented in this encounter
--- OUTSIDE RECORDS SUMMARY | 2025-05-10 08:09 | XMS_ITS | Encounter Summary ---
Author Organization Healthcare Address [address] [place] [address] Care Team Providers Care Production Cloth Cutter Name Role Phone Unavailable Primary Care Provider Unavailabl e Encounter Details Date Type Department Care Team (Late st Contact Info) Description 07/20/2022 Lab Requisition [facility] [address] [place] [address] Sushil Dean MD [address] [place] [address] Encounter for general adult medical examination without [...] 4 07/27/2022 11:32 AM EST [facility] Bone Specimen from bone / Unknown 07/20/2022 1:36 PM EST 07/20/2022 5:52 PM EST us Sushil Dean MD LAB MICROBIOLOGY - GENERAL O RDERABLES Final Result Performing Organization Address City/[facility] Co de Phone Number HEALTHCARE LAB [address] [place] [address] * Bone Culture and Gram Stain (07/20/2022 1:36 PM EST) Culture No growth at day 4 2022 9:16 AM EST [facility] Gram Stain Result Rare Polymorphonuclear leukocytes 07/24/2022 9:16 AM EST [facility] Gram Stain Result No organisms seen 07/24/2022 9:16 AM EST [facility] Bone Specimen from bone / Unknown 07/20/2022 1:36 PM EST 07/20/2022 5:52 PM EST us Sushil Dean MD LAB MICROBIOLOGY - GENERAL O RDERABLES Final Result Performing Organization Address City/[facility] Co de Phone Number [facility]ALTH[facility]ARE [facility] [address] [place] [address] documented in this encounter Visit Diagnoses Diagnosis Encounter for general adult medical examination without abnormal findings documented in this encounter
--- OUTSIDE RECORDS SUMMARY | 2025-05-10 08:09 | XMS_ITS | Encounter Summary ---
Author Organization Healthcare Address [address] [place] [address] Care Team Providers Care Tag Machine Operator Name Role Phone Unavailable Primary Care Provider Unavailabl e Encounter Details Date Type Department Care Team (Late st Contact Info) Description 07/20/2022 Lab Requisition [facility] [address] [place] [address] Sushil Dean MD [address] [place] [address] Encounter for general adult medical examination without [...]
--- OUTSIDE RECORDS SUMMARY | 2025-05-10 08:09 | XMS_ITS | Encounter Summary ---
Author Organization Healthcare Address [address] [place] [address] Care Team Providers Care Chemical Process Equipment Operator Name Role Phone Unavailable Primary Care Provider Unavailabl e Encounter Details Date Type Department Care Team (Late st Contact Info) Description 05/17/2023 Lab Requisition [facility] [address] [place] [address] Sushil Dean MD [address] [facility] [address] [place] [address] Encounter for general adult medical examination without [...] Final Result Performing Organization Address City/[facility] Co de Phone Number [facility] [address] [place] [address] * Bone Culture and Gram Stain (05/17/2023 [...] Final Result Performing Organization Address [facility] Co de Phone Number [facility] [address] [place] [address] documented in this encounter Visit Diagnoses Diagnosis Encounter for general adult medical examination without abnormal findings documented in this encounter
--- OUTSIDE RECORDS SUMMARY | 2025-05-10 08:10 | XMS_ITS | Clinical Summary ---
Author Organization Healthcare Address [address] [place] [address] Care Team Providers Care Software Design Analyst Name Role Phone Unavailable Primary Care Provider [...]
[2025-05-10] MEDS: DAPTOmycin 1,000 MG in 0.9 % SODIUM CHLORIDE 50 ML 100 MG IV (08:23)
== END 2025-05-10 09:13 | disposition home or self-care (01) ==
LOC: INF 08:04
PROVIDERS: PCP Nurse Practitioner Family; Visit Provider Internal Medicine Infectious Disease
DX: L03.115 Cellulitis of right lower limb (principal); L02.415 Cutaneous abscess of right lower limb; L30.9 Dermatitis, unspecified; I10 Essential (primary) hypertension; D68.2 Hereditary deficiency of other clotting factors; F39 Unspecified mood [affective] disorder
CPT/HCPCS: 96365; J0878

== ENCOUNTER 2025-05-11 08:19 | Outpatient (CLI) | payer MEDICARE, SELFPAY ==
--- OUTSIDE RECORDS SUMMARY | 2023-12-12 04:00 | XMS_ITS ---
Author Organization [facility] Address 1210 [facility] 36 [facility] 2C YVON Sykes [phone] Care Team Providers Care Hull Grinder Name Role Phone Zeeshan Salazar Primary Care Provider [phone] Macario Burkett [phone] REASON FOR VISIT 6 Month Check Up Encounters Encounter Location Date Provider Diagnosis [facility] 1210 [facility] [address] [place] Sykes [id number] 12/12/2023 Macario Burkett Plan Of Treatment No Information Progress Notes * Won MEDRANO ZeeshanDOB: [birth year] (44 yo M)Acc No.[id number]:12/12/2023 Progress Notes Patient: Won SPANN Provider: Colleen Burkett M.D. :1980 A ge:43 Y S ex:Male Date:12/12/2023 Address:[address] [place] [address] Onel THACKER [id number] Pcp:Zeeshan Salazar Subjective: * Chief Complaints: * 1 . 6 Month Check Up. * Medical History: Objective: * Vitals: Assessment: Plan: * Treatment: * Images: Billing Information: * Visit Code: * Procedure Codes: * Electronic signature of Micaela Burkett MD on 05/11/2025 at 08:22 AM EST Sign off status: Pending * Provider: Colleen Burkett M.D. Date: 12/12/2023 Generated for Nany jorgensen/Elaine/Lisbethitting on: 07/11/2024 08:22 AM EST
--- OUTSIDE RECORDS SUMMARY | 2025-04-04 15:10 | XMS_ITS | Encounter Summary ---
Author Organization [facility] Address [address] [place] [address] Care Team Providers Care Trimming Inspector Name Role Phone Provider, No Known Primary Care Provider Unavail able Reason for Visit * Reason Comments Leg Swelling * Auth/Cert Specialty Diagnoses / Procedures Referred By Contlevy t Referred To Contact Diagnoses Right BKA infection Referral ID Status Reason Start Date Expiration Date Visits Re quested Visits Authorized [id number] 1 1 Encounter Details Date Type Department Care Team (Late st Contact Info) Description 04/04/2025 4:10 PM EDT - 04/11/2025 1:58 PM EDT Hospital Encounter [address] [place] [address] Mario Crowley, [address] [place] [address] Leonora Shepherd MD [address] [address] Jason Álvarez DO [address] [address] Jadyn Richardson DO [address] [address] Cellulitis of right lower extremity (Primary Dx); Below-knee amputation of right lower extremity, initial encounter; Right BKA infection Discharge Disposition: Home or Self Care Social History Tobacco Use Types Packs/Day Years Used Date Smoking Tobacco: Never Smokeless Tobacco: Never Tobacco Cessation:Counseling Given: Not Answered Alcohol Use Standard Drinks/Week Comments Not Currently 0 (1 standard drink = 0.6 oz pur e alcohol) [facility] Utilities Answer Date Recorded In the past 12 months has th e [employer], gas, oil, or water company threatened to shut off services in your home? No 04/07/2025 AUDIT-C Answer Date Recorded Q1: How often do you have a drink containing alcohol? Never 04/05/2025 Q2: How many drinks containi ng alcohol do you have on a typical day when you are drinking? Patient does not drink Q3: How often do you have si x or more drinks on one occasion? Never 04/05/2025 Exercise Vital Sign Answer Date Recorde d On average, how many days pe r week do you engage in moderate to strenuous exercise (like a brisk walk)? 0 days 04/07/2025 On average, how many minutes do you engage in exercise at this level? 0 min 04/07/2025 PRAPARE - Transportation Answer Date Re corded In the past 12 months, has l ack of transportation kept you from medical appointments or from getting medications? No 03/11 In the past 12 months, has l ack of transportation kept you from meetings, work, or from getting things needed for daily living? No 04/07/2025 Abuse Screen Answer Date Recorded Feels Unsafe at Home or Work/School no 04/08/2025 Feels Threatened by Someone no 03/12 Does Anyone Try to Keep You From Having Contact with Others or Doing Things Outside Your Home? no 04/08/2025 Physical Signs of Abuse Present no 04/08/2025 Housing Stability Answer Date Recorded Current Living Arrangements home 03/12 Potentially Unsafe Housing Conditions none 04/08/2025 Family and Community Support Answer Michael e Recorded Help with Day-to-Day Activities Not on file 05/09/2023 Lonely or Isolated Not on file 05/09/2023 Employment Answer Date Recorded Do you want help finding or keeping work or a maryann b? Not on file 05/09/2023 Disabilities Answer Date Recorded Difficulty Concentrating, Remembering or Making Decisions no 04/08/2025 Difficulty Managing Errands Independently no 04/08/2025 Education Answer Date Recorded Help with school or training? Not on file Preferred Language [place] 04/07/2025 Sex and Gender Information Value Date Recorded Sex Assigned at Not on file Legal Sex Male 7:30 PM EDT Gender Identity Not on file Sexual Orientation Not on file documented as of this encounter Last Filed Vital Signs Vital Sign Reading Time Taken Comments Blood Pressure 118/73 04/11/2025 9:38 AM EDT Pulse 73 04/11/2025 9:38 AM EDT Temperature 37 C (98.6 F) 04/11/2025 9:38 AM EDT Respiratory Rate 18 04/11/2025 10:37 AM EDT Oxygen Saturation 93% 04/11/2025 9:38 AM EDT Inhaled Oxygen Concentration - - Weight 134 kg (295 lb) 04/04/2025 2:25 PM EDT Height 180.3 cm (5' 11 ) 04/04/2025 2:25 PM EDT Body Mass Index 41.14 04/04/2025 2:25 PM EDT documented in this encounter Functional Status * Calculated C-SSRS Risk Score (Lifetime/Recent) Answer Date of Assessment Author No Risk Indicated 04/04/2025 2:25 PM EDT Cherri Grimm RN * [place] Suicide Severity Rating Scale (Screener/Recent Self-Report) Question Answer Date of Assessment Author 1. Wish to be (Past 1 Month) No 025 2:25 PM EDT Cherri Garcia RN 2. Non-Specific Active Suici mickey Thoughts (Past 1 Month) No 04/04/2025 2:25 PM EDT Wesley Garcia RN 6. Suicidal Behavior (Lifetime) No 2:25 PM EDT Cherri Garcia RN documented as of this encounter Discharge Summaries * Rosario Hill APRN - 04/11/2025 11:11 AM EDT Images from the original note were not included. [facility] Medicine Services DISCHARGE SUMMARY Patient Name: Won Dennis : 1980 Date of Admission: 04/04/2025 Date of Discharge: 04/11/2025 Primary Care Physician: Provider, No Known Consults Date and Time Order Name Status Description 04/04/2025 11:16 PM Inpatient Orthopedic Surgery Consult Completed 04/04/2025 11:12 PM Inpatient Infectious Diseases Consult Completed Hospital Course Presenting Problem: 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] Active Hospital Problems Diagnosis POA 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 Hospital Course: Won Dennis is a 44 y.o. 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 MRI concerning for cellulitis. Orthopedic surgery infectious disease consulted. Repeat MRI on 04/07 showed small irregular fluid signal foci which may represent small abscess versus infectious phlegmon. Orthopedic surgery consulted and patient is s/p incision and drainage, debridement and wound VAC assisted closure on 04/07. Repeat irrigation debridement and secondary closure on 04/08 with drain placement. Drain was removed by orthopedic surgery on . Infectious disease consulted recommending Dapto and ceftriaxone, later to continue Dapto till atleast 04/16/25. PICC line placed on 04/09. 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 Right BKA cellulitis - MRI concerning for cellulitis. -- Orthopedic surgery infectious disease consulted. -- Repeat MRI on 04/07 showed small irregular fluid signal foci which may represent small abscess versus infectious phlegmon. -- Orthopedic surgery consulted and patient is s/p incision and drainage, debridement and wound VACassisted closure on 04/07. -- Repeat irrigation debridement and secondary closure on 04/08 with drain placement. -- Drain was removed by orthopedic surgery on 04/10/2025. -- Infectious disease consulted recommending Dapto and ceftriaxone, later to continue Dapto till atleast 04/16/25. -- PICC line placed on 04/09. 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 HTN/HLD - HCTZ, Lasix - Patient was not discharged on valsartan due to normotensive BP - Follow-up with PCP for further adjustment Mood disorder - Sertraline BPH - home medication Discharge Follow Up Recommendations for labs/diagnostics: Follow-up with Dr Torres on 04/21/2025 at 10:15 AM Follow-up with Dr. Dean on 04/22/2025 at 11 AM Day of Discharge HPI: Patient sitting up in the bed anxious to return home. Patient reports moderate pain to the BKA, buttolerable. Denies any other issues. Otherwise ROS is negative except as mentioned in the HPI. Vital Signs: Temp: [98.1 ??F (36.7 ??C)-98.9 ??F (37.2 ??C)] 98.6 ??F (37 ??C) Heart Rate: [73] 73 Resp: [16-18] 18 BP: (100-126)/(48-77) 118/73 Physical Exam: Constitutional: Awake, alert, NAD HENT: NCAT, mucous membranes moist Respiratory: Clear to auscultation bilaterally, nonlabored respirations Cardiovascular: RRR, no murmurs, rubs, or gallops Gastrointestinal: Positive bowel sounds, soft, nontender, nondistended Musculoskeletal: RBKA with dsg CDI Psychiatric: Appropriate affect, cooperative Neurologic: Oriented x 3, SHEN, speech clear Skin: No rashes on exposed skin Pertinent and/or Most Recent Results Results from last 7 days Lab Units 04/11/25 0340 04/10/25 0346 04/09/25 0418 04/08/25 0841 04/07/25 0910 04/06/25 1916 04/06/25 0342 04/06/25 0341 04/05/25 0354 WBC 10*3/mm3 7.87 9.60 11.00* 10.07 8.63 -- -- 10.86* 11.18* HEMOGLOBIN g/dL 12.8* 12.9* 13.0 14.0 14.7 -- -- 13.9 13.9 HEMATOCRIT % 40.5 40.1 40.4 42.7 44.8 -- -- 43.7 42.4 PLATELETS 10*3/mm3 267 227 211 118* 149 -- -- 115* 160 SODIUM mmol/L 140 137 135* 136 139 -- 138 -- 136 POTASSIUM mmol/L 3.8 3.9 4.2 4.6 4.2 4.0 3.6 -- 3.9 CHLORIDE mmol/L 105 102 100 102 105 -- 103 -- 103 CO2 mmol/L 28.2 26.9 26.0 23.5 24.8 -- 24.2 -- 24.0 BUN mg/dL 12.5 15.9 23.0* 13.2 13.1 -- 12.8 -- 17.3 CREATININE mg/dL 0.68* 0.77 1.15 0.69* 0.77 -- 0.80 -- 0.92 GLUCOSE mg/dL 108* 125* 147* 125* 112* -- 94 -- 152* CALCIUM mg/dL 8.2* 7.9* 8.2* 8.4* 8.6 -- 8.0* -- 7.8* Results from last 7 days Lab Units 04/11/25 0340 04/05/25 0354 04/05/25 0018 04/04/25 1447 BILIRUBIN mg/dL 0.2 -- -- 1.0 ALK PHOS U/L 99 -- -- 106 ALT (SGPT) U/L 52* -- -- 26 AST (SGOT) U/L 40 -- -- 25 PROTIME Seconds -- -- 15.9* -- INR -- -- 1.19* -- APTT seconds -- 35.3* 33.6* -- Invalid input(s): TG , LDLCALC , LDLREALC Brief Urine Lab Results None Microbiology Results Abnormal Procedure Component Value - Date/Time Wound Culture - Swab, Leg, Right [[id number]] (Abnormal) (Susceptibility) Collected: 04/07/252106 Lab Status: Final result Specimen: Swab from Leg, Right Updated: 04/10/25 1038 Wound Culture Light growth (2+) Staphylococcus aureus, MRSA Comment: Methicillin resistant Staphylococcus aureus, Patient may be an isolation risk. Gram Stain Few (2+) WBCs seen No organisms seen Susceptibility Staphylococcus aureus, MRSA ALIZA Clindamycin Susceptible Erythromycin Resistant Oxacillin Resistant Rifampin Susceptible Tetracycline Susceptible Trimethoprim + Sulfamethoxazole Susceptible Vancomycin Susceptible Imaging Results (All) Procedure Component Value Units Date/Time FL C Arm During Surgery [[id number]] Resulted: 04/07/252137 Updated: 04/07/252137 Narrative: This procedure was auto-finalized with no dictation required. MRI Tibia Fibula Right With & Without Contrast [[id number]] Collected: 04/07/25 0938 Updated: 04/07/25 1001 Narrative: MRI TIBIA FIBULA RIGHT W WO CONTRAST Date of Exam: 04/07/2025 8:15 AM EDT Indication: evaluate interval change, osteomyelitis vs fluid collection. Comparison: 04/04/2025 Technique: Routine multiplanar/multisequence images of the right tibia and fibula were obtained before and after the uneventful intravenous administration of Vueway. Findings: Status post below-knee amputation, as before. There is soft tissue edema with skin thickening and postcontrast enhancement, primarily along the anterior aspect of the remaining lower leg, as before. In the subcutaneous tissues at the anterior-lateral aspect of the lower leg, extending inferiorly from the level of the inferior patellar tendon to the level of the distal tibia (axial images 10-35),there are irregular small T2 fluid signal foci with peripheral enhancement. The small irregular focal area of hypoenhancement adjacent to the distal tibia seen previously on series 19 image 10 appears similar on series 12 image 6. There is a small amount of focal T2 fluid signal intensity in this location. No definite new marrow signal abnormality to indicate osteomyelitis. No visualized knee effusion. There is diffuse muscle atrophy and postsurgical changes in the soft tissues, as before. Impression: Impression: 1.Status post below-knee amputation with soft tissue edema, skin thickening, and enhancement of thelower leg, as before, which may represent cellulitis. 2.Small irregular fluid signal foci in the subcutaneous tissues at the anterior- lateral aspect of the lower leg, extending inferiorly from the level of the inferior patellar tendon to the level of the distal tibia, most notably near the distal tibia. These could represent small abscesses versus infectious phlegmon. Ultrasound could be performed to assess for collection for drainage or aspiration. 3.No definite findings of osteomyelitis at this time. Electronically Signed: Hugh Buenrostro 04/07/2025 9:58 AM EDT Workstation ID: [id number] MRI Tibia Fibula Right With & Without Contrast [[id number]] Collected: 04/04/252256 Updated: 04/04/252302 Narrative: MRI TIBIA FIBULA RIGHT W WO CONTRAST Date of Exam: 04/04/2025 5:26 PM EDT Indication: right BKA amputation with pain, swelling, infx? fluid collection. Comparison: None available. Technique: Routine multiplanar/multisequence images of the right tibia and fibula were obtained before and after the uneventful intravenous administration of Vueway. Findings: Postsurgical changes are seen related to below-knee amputation. Soft tissue swelling is seen along the resection margin with diffuse skin thickening. This extends along the anterior aspect of the tibia. No focal collection identified. Mild enhancement is seen corresponding to this region diffusely. No drainable collection identified. There is a small patchy area of hypoattenuation present which may represent a small area of phlegmonous change ( image 10) measuring approximately 1.6 cm which appears linear (series 15 image 37). The tibial stump demonstrates no significant edema or enhancement. No definite periosteal changes identified. Fibular resection margin appears unremarkable. Thereis no knee joint effusion. Musculature appears unremarkable with no evidence of focal atrophy. Impression: Impression: Postsurgical changes related to below-knee amputation with soft tissue swelling and skin thickeningseen along the resection margin extending along the anterior aspect of the tibia consistent with cellulitis. There is a small patchy area of hypoattenuation present which may represent a small area of phlegmonous change. No drainable collection identified. No definite osseous edema identified to suggest osteomyelitis. No knee joint effusion. Electronically Signed: Leigh Jones MD 04/04/2025 11:00 PM EDT Workstation ID: [id number] Pending Labs Order Current Status Fungus Culture - Tissue, Leg, Right In process AFB Culture - Tissue, Leg, Right Preliminary result Anaerobic Culture - Swab, Leg, Right Preliminary result Anaerobic Culture - Swab, Leg, Right Preliminary result Anaerobic Culture - Swab, Leg, Right Preliminary result Anaerobic Culture - Tissue, Leg Preliminary result Discharge Details Discharge Medications New Medications Instructions Start Date acetaminophen 500 MG tablet Commonly known as: TYLENOL 500 mg, Oral, Every 6 Hours PRN DAPTOmycin 800 mg in sodium chloride 0.9 % 50 mL 8 mg/kg (800 mg), Intravenous, Every 24 Hours Start Date: April 12, 2025 oxyCODONE 5 MG immediate release tablet Commonly known as: ROXICODONE 5 mg, Oral, Every 4 Hours PRN saccharomyces boulardii 250 MG capsule Commonly known as: FLORASTOR 250 mg, Oral, 2 Times Daily Continue These Medications Instructions Start Date atorvastatin 40 MG tablet Commonly known as: LIPITOR 40 mg, Nightly coenzyme Q10 100 MG capsule 200 mg, Daily Eliquis 5 MG tablet tablet Generic drug: apixaban 5 mg, Every 12 Hours Scheduled ezetimibe 10 MG tablet Commonly known as: ZETIA 10 mg, Nightly famotidine 20 MG tablet Commonly known as: PEPCID 20 mg, 2 Times Daily FeroSul 325 (65 Fe) MG tablet Generic drug: ferrous sulfate 325 mg, 2 Times Daily With Meals furosemide 20 MG tablet Commonly known as: LASIX 20 mg, Daily hydroCHLOROthiazide 12.5 MG tablet 12.5 mg, Oral, Daily omega-3 acid ethyl esters 1 g capsule Commonly known as: LOVAZA 1 g, Nightly oxybutynin XL 10 MG 24 hr tablet Commonly known as: DITROPAN-XL 10 mg, Nightly sertraline 100 MG tablet Commonly known as: ZOLOFT 100 mg, Nightly Symbicort 160-4.5 MCG/ACT inhaler Generic drug: budesonide-formoterol 2 puffs, 2 Times Daily - RT tamsulosin 0.4 MG capsule 24 hr capsule Commonly known as: FLOMAX 1 capsule, Nightly Stop These Medications [facility] capsule doxycycline 100 MG tablet Commonly known as: VIBRAMYICN tadalafil 20 MG tablet tablet valsartan 40 MG tablet Commonly known as: DIOVAN Allergies Allergen Reactions Ceftin [Cefuroxime] Nausea And Vomiting Keflex [Cephalexin] Nausea And Vomiting Latex Rash Discharge Disposition: Home or Self Care Discharge Diet: Diet Order Procedures Diet: Regular/House; Fluid Consistency: Thin (IDDSI 0) Standing Status: Standing Number of Occurrences: 1 Diets:: Regular/House Fluid Consistency:: Thin (IDDSI 0) Discharge Activity: Activity Instructions Activity as Tolerated Up WIth Assist CODE STATUS: Code Status and Medical Interventions: CPR (Attempt to Resuscitate); Full Support Ordered at: 04/04/252047 Code Status (Patient has no pulse and is not breathing): CPR (Attempt to Resuscitate) Medical Interventions (Patient has pulse or is breathing): Full Support Level Of Support Discussed With: Patient No future appointments. Additional Instructions for the Follow-ups that You Need to Schedule Discharge Follow-up with PCP As directed Currently Documented PCP: Provider, No Known PCP Phone Number: None Follow Up Details: Follow-up with PCP in 1 week Discharge Follow-up with Specified Provider: Dr. Dean As directed To: Dr. Dean Follow Up Details: 04/21 or 04/22 Time Spent on Discharge: 48 minutes Electronically signed by Rosario Hill APRN, 04/11/25, 11:12 AM EDT. Cosigned by Jadyn Richardson DO at 04/11/2025 3:42 PM EDT Associated attestation - Jadyn Richardson DO - 04/11/2025 3:42 PM EDT I have reviewed this documentation and agree. * Omar Zavala RN - 04/10/2025 4:29 PM EDT Images from the original note were not included. Won Dennis (44 y.o. Male) Date of 1980 Social Security Number [id number] [place] [id number] [employer] Unknown Marital Status Unknown Admission Date 04/04/2025 Admission Type Emergency Admitting Provider Jadyn Richardson DO Attending Provider Jadyn Richardson DO Department, Room/Bed [address], S565/1 Discharge Date Discharge Disposition Discharge Destination Attending Provider: Jadyn Richardson DO Allergies: Ceftin [Cefuroxime], Keflex [Cephalexin], Latex Isolation: None Infection: MRSA (05/11/23) Code Status: CPR Ht: 180.3 cm (71 ) Wt: 134 kg (295 lb) Admission Cmt: None 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 Insurance as of 04/04/2025 Primary Coverage Payor Plan Insurance Group Employer/Plan Group [place] [id number] Payor Plan Address Payor Plan Phone Number Payor Plan Fax Number Effective Dates [employer] [address] [address] 08/10/2023 - None Entered [place] [address] Subscriber Name Subscriber Date Member ID WON DENNIS 1980 [id number] Emergency Contacts Solution Consultant (Rel.) Home Phone Work Phone Mobile Phone Avril Dennis (Spouse) -- -- [phone] LewRobert (Relative) -- -- [phone] [facility] [address] Patient: ROOM: [facility] Won Dennis [address] [facility] EMERGENCY DEPARTMENT [id number] : 1980 SSN: [id number] Sex: M PCP: Provider, No Known Emergency Contact Information Name Relation Home Work Mobile Avril Dennis Spouse [phone] Other Contacts Name Relation Home Work Mobile Robert Hackett Relative [phone] INSURANCE PA[employer]OR [employer]AN [employer] # SUBSCRIBER ID Primary: Secondary: MEDICARE [place] [id number] Admitting Diagnosis: 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] Order Date: Apr 09, 2025 Case Management Glass Finisher Consult (Order ID: [id number]) Diagnosis: Priority: Routine Expected Date: Expiration Date: Interval: Once Count: Comments: Outpatient orders: 1. Outpatient intravenous antibiotic therapy: Daptomycin 800 mg IV daily to be supplied by [facility] home infusion 2. Home health to perform weekly PICC line dressing changes with a Biopatch or Tegaderm CHG gel dressing 3. CBC, CMP, ESR, CRP, and CPK weekly-forward results to Dr. Rubens Torres 4. Follow-up with Dr. Rubens Torres in the next 1-2 weeks 5. Home health orders to be forward to to Dr. Rubens Torres Reason for consult? Other (see comments) Comments: outpatient orders Authorizing Provider:Carlton Mead MD Authorizing Provider's Order Entered By: Carlton Mead MD 04/09/2025 9:46 PM Electronically signed by: Carlton Mead MD 04/09/2025 9:46 PM Carlton Mead MD Physician Infectious Disease Progress Notes Signed Date of Service: 04/10/25737 Creation Time: 04/10/25737 Signed Expand All Collapse All INFECTIOUS DISEASE Progress Note Won Dennis 1980 [id number] Date of Consult: 04/10/2025 Admission Date: 04/04/2025 Requesting Provider: Evaluating Physician: Dr. Mable Mead MD. 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 He c/o swelling with erythema for several days after a new prosthesis was fitted, which prompted him to seek treatment at [facility]. He is known to Dr. Dean. He denies recent antibiotics. He has an intolerance to keflex, he became severely nauseated with infusion. MRI completed yesterday demonstrates area of hypoatttenuation with small area of phlegmonous change. No osteomyelitis. No knee joint effusion. Denies n/v, or fever. No other symptoms. WBC count 12.7 on admission with sed rate of 51, CRP 8.57. Creatinine normal. No cultures obtained here. Known MRSA from previous wound 05/09/25. HDS, on Heparin gtt. Currently [facility] has been asked to manage the antimicrobials in this patient. 04/06/25: WBC count downtrending. Mild fever 99.2, with TMAX 100..9. The leg looks less erythematous, no pain to examination. 04/07/2025: His maximum temperature over the last 24 hours is 100.4. He has decreased right BKA stump pain. The rash over his popliteal fossa is markedly improved. His distal BKA stump erythema is markedly better. A follow-up MRI scan reveals small irregular fluid signal foci in the anterior lateralaspect of the BKA stump. 04/08/2025: he has remained afebrile. He underwent right BKA stump debridement last evening. Operative cultures are pending. White blood cell count yesterday was 8.6. he underwent repeat right BKA stump debridement today. 04/09/25: He has remained afebrile. Right BKA stump fluid from 04/07 is no growth so far. Cultures from 04/08 are also no growth so far. Later today is operative cultures from 04/07 turned positive for MRSA. 04/10/2025: He remains afebrile. White blood cell count is 9.6. He underwent PICC line placement yesterday. He denies uncontrolled pain. He would like to go home. Medical History Past Medical History: Diagnosis Date Amputation finger Anxiety and depression Asthma Bone spur of right foot CHF (congestive heart failure) Hx of right BKA 2022 Hyperlipidemia Hypertension MRSA (methicillin resistant Staphylococcus aureus) infection 05/09/2023 Right leg wound culture Osteomyelitis PE (pulmonary thromboembolism) Prostate enlargement Sleep apnea Surgical History Past Surgical History: Procedure Laterality Date AMPUTATION Left left hand, index finger amputated past the first knuckle ANKLE TENDON REPAIR Left BACK SURGERY BELOW KNEE LEG AMPUTATION Right 2022 CARDIAC CATHETERIZATION LEG DEBRIDEMENT Right 04/07/2025 Procedure: LEG DEBRIDEMENT, IRRIGATION; Surgeon: Sushil Dean Jr., MD; Location: [facility]; Service: Orthopedics; Laterality: Right; PLACEMENT OF WOUND VAC Right 04/07/2025 Procedure: WOUND VACUUM ASSISTED CLOSURE; Surgeon: Sushil Dean Jr., MD; Location: [facility]; Service: Orthopedics; Laterality: Right; WOUND CLOSURE Right 04/08/2025 Procedure: WOUND CLOSURE DELAYED; Surgeon: Sushil Dean Jr., MD; Location: [facility]; Service:Orthopedics; Laterality: Right; WOUND DEBRIDEMENT Right 04/08/2025 Procedure: LEG DEBRIDEMENT AND IRRIGATION; Surgeon: Sushil Dean Jr., MD; Location: [facility] OR;Service: Orthopedics; Laterality: Right; History reviewed. No pertinent family history. Social History Social History Socioeconomic History Marital status: Unknown Tobacco Use Smoking status: Never Smokeless tobacco: Never Vaping Use Vaping status: Never Used Substance and Sexual Activity Alcohol use: Not Currently Drug use: Never Sexual activity: Defer Allergies Allergies Allergen Reactions Ceftin [Cefuroxime] Nausea And Vomiting Keflex [Cephalexin] Nausea And Vomiting Latex Rash Medication: Current Medications Current Facility-Administered Medications: acetaminophen (TYLENOL) tablet 500 mg, 500 mg, Oral, Q6H PRN, 500 mg at 04/09/252032 OR acetaminophen (TYLENOL) 160 MG/5ML oral solution 500 mg, 500 mg, Oral, Q6H PRN, 500 mg at 04/06/25 0036 OR acetaminophen (TYLENOL) suppository 325 mg, 325 mg, Rectal, Q6H PRN, Sushil Dean Jr., MD [Held by provider] apixaban (ELIQUIS) tablet 5 mg, 5 mg, Oral, Q12H, Sushil Dean Jr., MD atorvastatin (LIPITOR) tablet 40 mg, 40 mg, Oral, Nightly, Sushil Dean Jr., MD, 40 mg at 04/09/252026 sennosides-docusate (PERICOLACE) 8.6-50 MG per tablet 2 tablet, 2 tablet, Oral, BID PRN AND polyethylene glycol (MIRALAX) packet 17 g, 17 g, Oral, Daily PRN AND bisacodyl (DULCOLAX) EC tablet5 mg, 5 mg, Oral, Daily PRN AND bisacodyl (DULCOLAX) suppository 10 mg, 10 mg, Rectal, Daily PRN, Sushil Dean Jr., MD budesonide-formoterol (SYMBICORT) 160-4.5 MCG/ACT inhaler 2 puff, 2 puff, Inhalation, BID - RT, Sushil Dean Jr., MD, 2 puff at 04/09/251943 Calcium Replacement - Follow Nurse / BPA Driven Protocol, , Not Applicable, PRN, Sushil Dean Jr., MD DAPTOmycin (CUBICIN) 800 mg in sodium chloride 0.9 % 50 mL IVPB, 8 mg/kg (Adjusted), Intravenous, Q24H, Sushil Dean Jr., MD, Last Rate: 100 mL/hr at 04/09/25906, 800 mg at 04/09/25906 ethyl alcohol 62 % 2 each, 2 Swab, Nasal, Once, Sushil Dean Jr., MD ferrous sulfate tablet 325 mg, 325 mg, Oral, BID, Sushil Dean Jr., MD, 325 mg at 04/09/252026 furosemide (LASIX) tablet 20 mg, 20 mg, Oral, Daily, Sushil Dean Jr., MD, 20 mg at 04/09/25906 heparin 26841 units/250 mL (100 units/mL) in 0.45 % NaCl infusion, 18 Units/kg/hr, Intravenous, Titrated, Una Perla, PharmD, Last Rate: 24.1 mL/hr at 04/10/253, 18 Units/kg/hr at 04/10/25 031 hydroCHLOROthiazide tablet 12.5 mg, 12.5 mg, Oral, Daily, Sushil Dean Jr., MD, 12.5 mg at 04/09/25 0906 HYDROmorphone (DILAUDID) injection 0.5 mg, 0.5 mg, Intravenous, Q2H PRN, Yeyo Arzola III, DO, 0.5 mg at 04/10/25 0655 ketorolac (TORADOL) injection 15 mg, 15 mg, Intravenous, Once, Monisha Jones APRN Magnesium Standard Dose Replacement - Follow Nurse / BPA Driven Protocol, , Not Applicable, PRN, Sushil Dean Jr., MD [COMPLETED] HYDROmorphone (DILAUDID) injection 1 mg, 1 mg, Intravenous, Q15 Min PRN, 1 mg at 04/08/25 1648 AND naloxone (NARCAN) injection 0.4 mg, 0.4 mg, Intravenous, Q5 Min PRN, Benito Dean Jr., MD [COMPLETED] HYDROmorphone (DILAUDID) injection 1 mg, 1 mg, Intravenous, Q15 Min PRN, 1 mg at 04/08/25 1739 AND naloxone (NARCAN) injection 0.4 mg, 0.4 mg, Intravenous, Q5 Min PRN, Benito Dean Jr., MD nitroglycerin (NITROSTAT) SL tablet 0.4 mg, 0.4 mg, Sublingual, Q5 Min PRN, Sushil Dean Jr., MD ondansetron ODT (ZOFRAN-ODT) disintegrating tablet 4 mg, 4 mg, Translingual, Q6H PRN, Sushil Dean Jr., MD, 4 mg at 04/06/25 1002 oxybutynin XL (DITROPAN-XL) 24 hr tablet 10 mg, 10 mg, Oral, Nightly, Sushil Dean Jr., MD, 10mg at 04/09/252026 oxyCODONE-acetaminophen (PERCOCET) 5-325 MG per tablet 1 tablet, 1 tablet, Oral, Q6H PRN, Yeyo Arzola III, DO, 1 tablet at 04/10/25 0313 Pharmacy to Dose Heparin, , Not Applicable, Continuous PRN, Sushil Dean Jr., MD Phosphorus Replacement - Follow Nurse / BPA Driven Protocol, , Not Applicable, PRN, Benito Dean Jr., MD Potassium Replacement - Follow Nurse / BPA Driven Protocol, , Not Applicable, PRNJermaine David A Jr., MD saccharomyces boulardii (FLORASTOR) capsule 250 mg, 250 mg, Oral, BID, Sushil Dean Jr., MD, 250 mg at 04/09/252026 sertraline (ZOLOFT) tablet 100 mg, 100 mg, Oral, Nightly, Sushil Dean Jr., MD, 100 mg at 04/09/252026 [COMPLETED] Insert Peripheral IV, , , Once AND sodium chloride 0.9 % flush 10 mL, 10 mL, Intravenous, PRN, Sushil Dean Jr., MD sodium chloride 0.9 % flush 10 mL, 10 mL, Intravenous, Q12H, Sushil Dean Jr., MD, 10 mL at 04/09/252026 sodium chloride 0.9 % flush 10 mL, 10 mL, Intravenous, PRN, Sushil Dean Jr., MD sodium chloride 0.9 % flush 10 mL, 10 mL, Intravenous, Q12H, Carlton Mead MD, 10 mL at 04/09/25 1439 sodium chloride 0.9 % flush 10 mL, 10 mL, Intravenous, PRLili, Carlton Mead MD sodium chloride 0.9 % flush 20 mL, 20 mL, Intravenous, PRNAlyce Mark J, MD sodium chloride 0.9 % infusion 40 mL, 40 mL, Intravenous, PRNJermaine David A Jr., MD sodium chloride 0.9 % infusion 40 mL, 40 mL, Intravenous, PRAlyce Pearson Mark J, MD tamsulosin (FLOMAX) 24 hr capsule 0.4 mg, 0.4 mg, Oral, Nightly, Sushil Dean Jr., MD, 0.4 mg at 04/09/252026 [Held by provider] valsartan (DIOVAN) tablet 40 mg, 40 mg, Oral, Q24H, Sushil Dean Jr., MD, 40 mg at 04/08/25 0800 Antibiotics: Anti-Infectives (From admission, onward) Ordered Dose/Rate Route Frequency Start Stop 04/08/25 1600 vancomycin (VANCOCIN) powder Status: Discontinued Ordering Provider: Sushil Dean Jr., MD As Needed 04/08/25 1555 04/08/25 1637 04/08/25 1354 vancomycin IVPB 2000 mg in 0.9% Sodium Chloride 500 mL Status: Discontinued Ordering Provider: Sushil Dean Jr., MD 15 mg/kg ?? 134 kg 250 mL/hr over 120 Minutes Intravenous Once 04/08/25 1356 04/08/25 1411 04/07/25 1644 vancomycin IVPB 2000 mg in 0.9% Sodium Chloride 500 mL Ordering Provider: Sushil Dean Jr., MD 15 mg/kg ?? 134 kg 250 mL/hr over 120 Minutes Intravenous Once 04/07/25 1646 04/07/25 2036 04/06/25 0815 DAPTOmycin (CUBICIN) 800 mg in sodium chloride 0.9 % 50 mL IVPB Ordering Provider: Sushil Dean Jr., MD 8 mg/kg ?? 98.8 kg (Adjusted) 100 mL/hr over 30 Minutes Intravenous Every 24 Hours 04/06/25 1000 04/16/25 0959 04/04/25 2006 cefTRIAXone (ROCEPHIN) 2,000 mg in sodium chloride 0.9 % 100 mL MBP Status: Discontinued Ordering Provider: Sushil Dean Jr., MD 2,000 mg 200 mL/hr over 30 Minutes Intravenous Every 24 Hours 04/05/25 2000 04/09/25 2144 04/05/25 1207 DAPTOmycin (CUBICIN) 800 mg in sodium chloride 0.9 % 50 mL IVPB Ordering Provider: Carlton Mead MD 8 mg/kg ?? 98.8 kg (Adjusted) 100 mL/hr over 30 Minutes Intravenous Every 24 Hours 04/05/25 1300 04/05/25 1427 04/05/25 0031 vancomycin IVPB 1500 mg in 0.9% NaCl (Premix) 500 mL Status: Discontinued Ordering Provider: Una Perla, PharmD 1,500 mg 333.3 mL/hr over 90 Minutes Intravenous Every 12 Hours 04/05/25 0800 04/05/25120604/04/252004 Pharmacy to dose vancomycin Status: Discontinued Ordering Provider: Leonora Shepherd MD Not Applicable Continuous PRN 04/04/25200404/05/25120604/04/251942 vancomycin 2750 mg/500 mL 0.9% NS IVPB ([facility]) Ordering Provider: Mario Crowley, DO 20 mg/kg ?? 134 kg over 165 Minutes Intravenous Once 04/04/25195804/04/25230604/04/251942 cefTRIAXone (ROCEPHIN) 2,000 mg in sodium chloride 0.9 % 100 mL MBP Ordering Provider: Leonora Shepherd MD 2,000 mg 200 mL/hr over 30 Minutes Intravenous Once 04/04/25195804/05/25 001 Review of Systems: See HPI Physical Exam: Vital Signs Temp (24hrs), Av.1 ??F (36.7 ??C), Min:97.8 ??F (36.6 ??C), Max:98.4 ??F (36.9 ??C) Temp Min: 97.8 ??F (36.6 ??C) Max: 98.4 ??F (36.9 ??C) BP Min: 104/70 Max: 112/66 Pulse Min: 65 Max: 78 Resp Min: 16 Max: 18 SpO2 Min: 93 % Max: 97 % GENERAL: Awake and alert, in moderate distress, pulling covers off c/o feeling hot HEENT: Normocephalic, atraumatic. PERRL. EOMI. No conjunctival injection. No icterus. NECK: Supple . HEART: RRR; No murmur, rubs, gallops. LUNGS: Coarse auscultation bilaterally without wheezing, rales, rhonchi. Normal respiratory effort.Nonlabored. ABDOMEN: Soft, nontender, nondistended. No rebound or guarding. NO mass or HSM. EXT: . Right BKA stump is dressed.. : Without Shoemaker catheter. MSK: No joint effusions or erythema SKIN: No diffuse rash. NEURO: Oriented to PPT. Motor 5/5 strength PSYCHIATRIC: Normal insight and judgment. Cooperative with PE Right arm PICC line is in place with no exit site erythema Laboratory Data Results from last 7 days Lab Units 04/10/25 0346 04/09/25 0418 04/08/25 0841 WBC 10*3/mm3 9.60 11.00* 10.07 HEMOGLOBIN g/dL 12.9* 13.0 14.0 HEMATOCRIT % 40.1 40.4 42.7 PLATELETS 10*3/mm3 227 211 118* Results from last 7 days Lab Units 04/10/25 0346 SODIUM mmol/L 137 POTASSIUM mmol/L 3.9 CHLORIDE mmol/L 102 CO2 mmol/L 26.9 BUN mg/dL 15.9 CREATININE mg/dL 0.77 GLUCOSE mg/dL 125* CALCIUM mg/dL 7.9* Results from last 7 days Lab Units 04/04/25 1447 ALK PHOS U/L 106 BILIRUBIN mg/dL 1.0 ALT (SGPT) U/L 26 AST (SGOT) U/L 25 Results from last 7 days Lab Units 04/04/25 1447 SED RATE mm/hr 51* Results from last 7 days Lab Units 04/04/25 1447 CRP mg/dL 8.57* Results from last 7 days Lab Units 04/05/25 1215 CK TOTAL U/L 140 Estimated Creatinine Clearance: 171.1 mL/min (by C-G formula based on SCr of 0.77 mg/dL). Microbiology: No results found for: ACANTHNAEG , AFBCX , BPERTUSSISCX , BLOODCX No results found for: BCIDPCR , CXREFLEX , CSFCX , CULTURETIS No results found for: CULTURES , HSVCX , URCX No results found for: EYECULTURE , GCCX , HSVCULTURE , LABHSV No results found for: LEGIONELLA , MRSACX , MUMPSCX , MYCOPLASCX No results found for: NOCARDIACX , STOOLCX No results found for: THROATCX , UNSTIMCULT , URINECX , CULTURE , VZVCULTUR No results found for: VIRALCULTU , WOUNDCX Radiology: Imaging Results (Last 72 Hours) Procedure Component Value Units Date/Time FL C Arm During Surgery [[id number]] Resulted: 04/07/252137 Updated: 04/07/252137 Narrative: This procedure was auto-finalized with no dictation required. MRI Tibia Fibula Right With & Without Contrast [[id number]] Collected: 04/07/25 0938 Updated: 04/07/25 1001 Narrative: MRI TIBIA FIBULA RIGHT W WO CONTRAST Date of Exam: 04/07/2025 8:15 AM EDT Indication: evaluate interval change, osteomyelitis vs fluid collection. Comparison: 04/04/2025 Technique: Routine multiplanar/multisequence images of the right tibia and fibula were obtained before and after the uneventful intravenous administration of Vueway. Findings: Status post below-knee amputation, as before. There is soft tissue edema with skin thickening and postcontrast enhancement, primarily along the anterior aspect of the remaining lower leg, as before. In the subcutaneous tissues at the anterior-lateral aspect of the lower leg, extending inferiorly from the level of the inferior patellar tendon to the level of the distal tibia (axial images 10-35),there are irregular small T2 fluid signal foci with peripheral enhancement. The small irregular focal area of hypoenhancement adjacent to the distal tibia seen previously on series 19 image 10 appears similar on series 12 image 6. There is a small amount of focal T2 fluid signal intensity in this location. No definite new marrow signal abnormality to indicate osteomyelitis. No visualized knee effusion. There is diffuse muscle atrophy and postsurgical changes in the soft tissues, as before. Impression: Impression: 1.Status post below-knee amputation with soft tissue edema, skin thickening, and enhancement of thelower leg, as before, which may represent cellulitis. 2.Small irregular fluid signal foci in the subcutaneous tissues at the anterior- lateral aspect of the lower leg, extending inferiorly from the level of the inferior patellar tendon to the level of the distal tibia, most notably near the distal tibia. These could represent small abscesses versus infectious phlegmon. Ultrasound could be performed to assess for collection for drainage or aspiration. 3.No definite findings of osteomyelitis at this time. Electronically Signed: Hugh Chitra 04/07/2025 9:58 AM EDT Workstation ID: [id number] Impression: Recurrent Right BKA stump abscess/cellulitis- this has occurred despite multiple prior surgical interventions and prolonged intravenous followed by oral antibiotic therapy. He will need another course of prolonged intravenous antibiotic therapy followed by possible indefinite oral antibiotic suppression. Right leg dermatitis-he has significant right posterior knee dermatitis which is improving on Lotrisone. 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 HTN HLD Mood disorder PLAN/RECOMMENDATIONS: 1. Intravenous daptomycin 2. Discharge on outpatient intravenous daptomycin 3. Infectious disease follow-up with Dr. Rubens Torres I discussed his complex situation with Dr. Rubens Torres -Dr. Torres will see him in infectious disease follow-up I discussed his disposition with the pharmacist at [facility] today. I will sign off Outpatient orders: 1. Outpatient intravenous antibiotic therapy: Daptomycin 800 mg IV daily to be supplied by [facility] 2. Home health to perform weekly PICC line dressing changes with a Biopatch or Tegaderm CHG gel dressing 3. CBC, CMP, ESR, CRP, and CPK weekly-forward results to Dr. Rubens Torres 4. Follow-up with Dr. Rubens Torres in the next 1-2 weeks 5. Home health orders to be forward to to Dr. Rubens Torres This visit included the following complex service elements: Complex medical decision-making associated with antimicrobial prescribing. In-depth chart review with high level synthesis for complex diagnoses. Managed infection treatment protocol associated with transitions of care for this complex patient. Carlton Mead MD 04/10/2025 07:38 Rosario Tan APRN Nurse Practitioner Hospitalist Progress Notes Signed Date of Service: 04/10/251323 Creation Time: 04/10/251323 Signed Expand All Collapse All [facility] Medicine Services PROGRESS NOTE Patient Name: Won Dennis : 1980 Date of Admission: 04/04/2025 Primary Care Physician: Provider, No Known Subjective Subjective CC: Right BKA cellulitis HPI: Pt sitting up in bed hoping to return home today but there was a lapse in his insurance which is delaying discharge. He reports pain at the BKA site. The drain was removed yesterday. Copied text in this note has been reviewed and is accurate as of 04/10/25. Objective Objective Vital Signs: Temp: [98.4 ??F (36.9 ??C)-98.9 ??F (37.2 ??C)] 98.9 ??F (37.2 ??C) Heart Rate: [67-78] 67 Resp: [16-18] 17 BP: (100-112)/(57-70) 100/70 Constitutional: Awake, alert, NAD HENT: NCAT, mucous membranes moist Respiratory: Clear to auscultation bilaterally, nonlabored Cardiovascular: RRR, no murmurs, rubs, or gallops Gastrointestinal: Positive bowel sounds, soft, nontender, nondistended Musculoskeletal: Right BKA with dsg CDI Psychiatric: Appropriate affect, cooperative Neurologic: Oriented x 3, strength symmetric in all extremities, Cranial Nerves grossly intact to confrontation, speech clear Skin: No rashes on exposed skin Results Reviewed: LAB RESULTS: Lab 04/10/25 0346 04/09/25 0418 04/08/25 0841 04/07/25 0910 04/06/25 0341 04/05/25 0354 04/05/25 0018 04/04/25 1447 WBC 9.60 11.00* 10.07 8.63 10.86* 11.18* -- 12.72* HEMOGLOBIN 12.9* 13.0 14.0 14.7 13.9 13.9 -- 15.3 HEMATOCRIT 40.1 40.4 42.7 44.8 43.7 42.4 -- 47.9 PLATELETS 227 211 118* 149 115* 160 -- 232 NEUTROS ABS 5.67 8.23* 8.57* 5.75 7.09* 8.23* -- 9.52* IMMATURE GRANS (ABS) 0.02 0.03 0.05 0.05 0.03 0.04 -- 0.03 LYMPHS ABS 2.78 1.69 0.94 1.77 2.23 1.56 -- 1.66 MONOS ABS 0.78 0.94* 0.46 0.85 1.28* 1.23* -- 1.43* EOS ABS 0.31 0.07 0.03 0.18 0.20 0.09 -- 0.05 MCV 85.9 86.0 85.2 85.7 86.0 84.8 -- 84.9 SED RATE -- -- -- -- -- -- -- 51* CRP -- -- -- -- -- -- -- 8.57* PROTIME -- -- -- -- -- -- 15.9* -- APTT -- -- -- -- -- 35.3* 33.6* -- Lab 04/10/25 0346 04/09/25 0418 04/08/25 0841 04/07/25 0910 04/06/25 1916 04/06/25 0342 SODIUM 137 135* 136 139 -- 138 POTASSIUM 3.9 4.2 4.6 4.2 4.0 3.6 CHLORIDE 102 100 102 105 -- 103 CO2 26.9 26.0 23.5 24.8 -- 24.2 ANION GAP 8.1 9.0 10.5 9.2 -- 10.8 BUN 15.9 23.0* 13.2 13.1 -- 12.8 CREATININE 0.77 1.15 0.69* 0.77 -- 0.80 EGFR 113.2 80.5 117.0 113.2 -- 111.9 GLUCOSE 125* 147* 125* 112* -- 94 CALCIUM 7.9* 8.2* 8.4* 8.6 -- 8.0* Lab 04/04/25 1447 TOTAL PROTEIN 7.3 ALBUMIN 4.1 GLOBULIN 3.2 ALT (SGPT) 26 AST (SGOT) 25 BILIRUBIN 1.0 ALK PHOS 106 Lab 04/05/25 0018 PROTIME 15.9* INR 1.19* Brief Urine Lab Results None Microbiology Results Abnormal Procedure Component Value - Date/Time Wound Culture - Swab, Leg, Right [[id number]] (Abnormal) (Susceptibility) Collected: 04/07/252106 Lab Status: Final result Specimen: Swab from Leg, Right Updated: 04/10/25 1038 Wound Culture Light growth (2+) Staphylococcus aureus, MRSA Comment: Methicillin resistant Staphylococcus aureus, Patient may be an isolation risk. Gram Stain Few (2+) WBCs seen No organisms seen Susceptibility Staphylococcus aureus, MRSA ALIZA Clindamycin Susceptible Erythromycin Resistant Oxacillin Resistant Rifampin Susceptible Tetracycline Susceptible Trimethoprim + Sulfamethoxazole Susceptible Vancomycin Susceptible Radiology results from the last 24 hours: No radiology results from the last 24 hrs I have personally reviewed the therapy plans: [] PT/OT/ ST Therapy Plans Current medications: Scheduled Meds: Scheduled Medication apixaban, 5 mg, Oral, Q12H atorvastatin, 40 mg, Oral, Nightly budesonide-formoterol, 2 puff, Inhalation, BID - RT DAPTOmycin, 8 mg/kg (Adjusted), Intravenous, Q24H ethyl alcohol, 2 Swab, Nasal, Once ferrous sulfate, 325 mg, Oral, BID furosemide, 20 mg, Oral, Daily hydroCHLOROthiazide Oral, 12.5 mg, Oral, Daily ketorolac, 15 mg, Intravenous, Once oxybutynin XL, 10 mg, Oral, Nightly saccharomyces boulardii, 250 mg, Oral, BID sertraline, 100 mg, Oral, Nightly sodium chloride, 10 mL, Intravenous, Q12H sodium chloride, 10 mL, Intravenous, Q12H tamsulosin, 0.4 mg, Oral, Nightly [Held by provider] valsartan, 40 mg, Oral, Q24H Continuous Infusions: Infusion Medications PRN Meds:. PRN Medication acetaminophen OR acetaminophen OR acetaminophen senna-docusate sodium AND polyethylene glycol AND bisacodyl AND bisacodyl Calcium Replacement - Follow Nurse / BPA Driven Protocol HYDROmorphone Magnesium Standard Dose Replacement - Follow Nurse / BPA Driven Protocol [COMPLETED] HYDROmorphone AND naloxone [COMPLETED] HYDROmorphone AND naloxone nitroglycerin ondansetron ODT oxyCODONE-acetaminophen Phosphorus Replacement - Follow Nurse / BPA Driven Protocol Potassium Replacement - Follow Nurse / BPA Driven Protocol [COMPLETED] Insert Peripheral IV AND sodium chloride sodium chloride sodium chloride sodium chloride sodium chloride sodium chloride Assessment & Plan Assessment & Plan Active Hospital Problems Diagnosis POA 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 Brief Hospital Course to date: Won Dennis is a 44 y.o. 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 MRI concerning for cellulitis. Orthopedic surgery and infectious disease consulted. Status post incision and drainage, debridement, wound VAC, and drain placement with orthopedic surgery on 04/07 and 04/08. Right BKA cellulitis -Patient presenting with 2 to 3 days of right BKA swelling, erythema and pain -MRI RLE revealing cellulitis, no obvious signs of OM or drainable fluid collection -Repeat MRI with small irregular fluid signal foci which may represent small abscess versus infectious phlegmon -Orthopedic surgery consulted, status post incision and drainage, debridement, and wound VAC assisted closure on 04/07. Repeat irrigation, debridement, and secondary closure on 04/08 with drain placement. Potential drain removal with orthopedic surgery tomorrow. Patient will need follow-up with orthopedic surgery in 2 weeks. -Infectious disease consulted, continue daptomycin and ceftriaxone. PICC line placed on 04/09. -PT/OT = home. Patients' mobility limitations impair their ability to participate in activities such as toileting, feeding, dressing, grooming, and bathing. Mobility limitations cannot be resolved bya cane or walker. The patient is able to safely use a manual wheelchair, and he will also have a caregiver in the home as well to help assist with the patient maneuvering. Factor II deficiency -Holding Eliquis for now. Continue heparin drip for now. Transition back to Eliquis prior to discharge. HTN HLD -Continue HCTZ 12.5 mg, lasix 20mg. Hold Valsartan 40 mg for now. -Continue statin Mood disorder -Continue Sertraline BPH -Continue home medications Expected Discharge Location and Transportation: Home 04/11/2025 VTE Prophylaxis: Pharmacologic & mechanical VTE prophylaxis orders are present. AM-PAC 6 Clicks Score (PT): 17 (04/10/25905) CODE STATUS: Code Status and Medical Interventions: CPR (Attempt to Resuscitate); Full Support Ordered at: 04/04/252047 Code Status (Patient has no pulse and is not breathing): CPR (Attempt to Resuscitate) Medical Interventions (Patient has pulse or is breathing): Full Support Level Of Support Discussed With: Patient Rosario DAVID Hill 04/10/25 * Susan Cavazos, PT - 04/06/2025 11:22 AM EDT Images from the original note were not included. Patient Name: Won Dennis : 1980 Today's Date: 04/06/2025 Admit Date: 04/04/2025 Visit Dx: ICD-10-CM ICD-9-CM 1. Cellulitis of right lower extremity L03.115 682.6 2. Below-knee amputation of right lower extremity, initial encounter S88.111A 897.0 Patient Active Problem List Diagnosis Right BKA infection Past Medical History: Diagnosis Date Amputation finger Anxiety and depression Asthma Bone spur of right foot CHF (congestive heart failure) Hx of right BKA 2022 Hyperlipidemia Hypertension MRSA (methicillin resistant Staphylococcus aureus) infection 05/09/2023 Right leg wound culture Osteomyelitis PE (pulmonary thromboembolism) Prostate enlargement Sleep apnea Past Surgical History: Procedure Laterality Date AMPUTATION Left left hand, index finger amputated past the first knuckle ANKLE TENDON REPAIR Left BACK SURGERY BELOW KNEE LEG AMPUTATION Right 2022 CARDIAC CATHETERIZATION General Information Row Name 04/06/25 1142 Physical Therapy Time and Intention Document Type discharge evaluation/summary -LM Mode of Treatment individual therapy;physical therapy -LM Row Name 04/06/25 1142 General Information Patient Profile Reviewed yes -LM Prior Level of Function independent:;all household mobility;gait;ADL's -LM Existing Precautions/Restrictions other (see comments) Hx of R BKA in 2022 - Just received a new prosthetic but has been told not to wear it until this medical issue is cleared up -LM Barriers to Rehab none identified -LM Row Name 04/06/25 1142 Living Environment Current Living Arrangements home -LM People in Home spouse;child(los), dependent and 5 kids -LM Row Name 04/06/25 1142 Home Main Entrance Number of Stairs, Main Entrance one States he can go up/down it using crutches no problem -LM Stair Railings, Main Entrance none -LM Row Name 04/06/25 1142 Stairs Within Home, Primary Number of Stairs, Within Home, Primary none -LM Row Name 04/06/25 1142 Cognition Orientation Status (Cognition) oriented x 4 -LM User Cabrera (r) = Recorded By, (t) = Taken By, (c) = Cosigned By Initials Name Provider Type LM Susan Cavazos PT Physical Therapist Mobility Row Name 04/06/25 1143 Bed Mobility Comment, (Bed Mobility) Up in chair at initial and end of evaluation, but states no issues with bedmobility. -LM Row Name 04/06/25 1143 Sit-Stand Transfer Sit-Stand [place] (Transfers) modified independence -LM Comment, (Sit-Stand Transfer) Pt stood from recliner. Not holding onto walker, pt able to pull his pants up while balancing on his one leg. -LM Row Name 04/06/25 1143 Gait/Stairs (Locomotion) [place] Level (Gait) modified independence -LM Distance in Feet (Gait) 100 -LM Comment, (Gait/Stairs) No unsteadiness noted. Pt has a prosthesis at home but has been told not to wear it until this medical issue is cleared up. Pt states he has everything he needs at home and doesn't feel like he needs skilled PT while he is here. -LM User Cabrera (r) = Recorded By, (t) = Taken By, (c) = Cosigned By Initials Name Provider Type Susan Pugh PT Physical Therapist Obj/Interventions Row Name 04/06/25 1145 Range of Motion Comprehensive General Range of Motion bilateral lower extremity ROM WFL -LM Row Name 04/06/25 1145 Strength Comprehensive (MMT) General Manual Muscle Testing (MMT) Assessment no strength deficits identified BLEs -LM Row Name 04/06/25 1145 Balance Balance Assessment sitting static balance;standing static balance;standing dynamic balance;sitting dynamic balance -LM Static Sitting Balance independent -LM Dynamic Sitting Balance independent -LM Position, Sitting Balance unsupported -LM Static Standing Balance modified independence -LM Dynamic Standing Balance modified independence -LM Position/Device Used, Standing Balance supported;walker, front-wheeled -LM Row Name 04/06/25 1145 Sensory Assessment (Somatosensory) Sensory Assessment (Somatosensory) LE sensation intact -LM User Cabrera (r) = Recorded By, (t) = Taken By, (c) = Cosigned By Initials Name Provider Type Susan Pugh PT Physical Therapist Goals/Plan No documentation. Clinical Impression Row Name 04/06/25 1146 Pain Pretreatment Pain Rating 0/10 - no pain -LM Posttreatment Pain Rating 0/10 - no pain -LM Row Name 04/06/25 1146 Plan of Care Review Plan of Care Reviewed With patient - Outcome Evaluation PT evaluation completed. Pt demonstrated independence with all mobility including ambulating 100 feet using rw - no unsteadiness noted. Pt reports he feels at baseline and doesn't think he needs skilled PT while here. Recommend home at d/c. PT signing off. -LM Row Name 04/06/25 1146 Therapy Assessment/Plan (PT) Criteria for Skilled Interventions Met (PT) no;no problems identified which require skilled intervention -LM Therapy Frequency (PT) evaluation only -LM Predicted Duration of Therapy Intervention (PT) Eval Only -LM Row Name 04/06/25 1146 Vital Signs Pretreatment Heart Rate (beats/min) 86 -LM Posttreatment Heart Rate (beats/min) 96 -LM Pre SpO2 (%) 95 -LM O2 Delivery Pre Treatment room air -LM Post SpO2 (%) 96 -LM O2 Delivery Post Treatment room air -LM Pre Patient Position Sitting -LM Post Patient Position Sitting -LM Row Name 04/06/25 1146 Positioning and Restraints Pre-Treatment Position sitting in chair/recliner -LM Post Treatment Position chair -LM In Chair reclined;call light within reach;encouraged to call for assist;with family/caregiver;notified nsg -LM User Cabrera (r) = Recorded By, (t) = Taken By, (c) = Cosigned By Initials Name Provider Type Susan Pugh, PT Physical Therapist Outcome Measures Row Name 04/06/25 1147 04/06/25 0858 How much help from another person do you currently need... Turning from your back to your side while in flat bed without using bedrails? 4 -LM 4 -LV Moving from lying on back to sitting on the side of a flat bed without bedrails? 4 -LM 4 -LV Moving to and from a bed to a chair (including a wheelchair)? 4 -LM 4 -LV Standing up from a chair using your arms (e.g., wheelchair, bedside chair)? 4 - LM 4 -LV Climbing 3-5 steps with a railing? 3 -LM 3 -LV To walk in hospital room? 4 -LM 4 -LV AM-PAC 6 Clicks Score (PT) 23 -LM 23 -LV Highest Level of Mobility Goal Walk 25 Feet or More-7 -LM Walk 25 Feet or More-7 -LV Row Name 04/06/25 1147 Functional Assessment Outcome Measure Options AM-PAC 6 Clicks Basic Mobility (PT) -LM User Cabrera (r) = Recorded By, (t) = Taken By, (c) = Cosigned By Initials Name Provider Type Susan Pugh, PT Physical Therapist LV von Hellens, Zandra, RN Registered Nurse Physical Therapy Education Title: PT OT [employer] Therapies (Done) Topic: Physical Therapy (Done) Point: Mobility training (Done) Learning Progress Summary Patient Acceptance, E, VU,DU by at 04/06/2025 1147 Point: Precautions (Done) Learning Progress Summary Patient Acceptance, E, VU,DU by at 04/06/2025 1147 User Cabrera Initials Effective Dates Name Provider Type Discipline 01/24/25 - Susan Cavazos, PT Physical Therapist PT PT Recommendation and Plan Recommended discharge disposition is based on the functional assessment performed by PT/OT/Speech therapy (as applicable) and may not reflect the medical necessity determined by your provider or services covered by an individual patient's insurance plan or patient resource. Therapy Frequency (PT): evaluation only Outcome Evaluation: PT evaluation completed. Pt demonstrated independence with all mobility including ambulating 100 feet using rw - no unsteadiness noted. Pt reports he feels at baseline and doesn'tthink he needs skilled PT while here. Recommend home at d/c. PT signing off. Time Calculation: PT Evaluation Complexity History, PT Evaluation Complexity: 3 or more personal factors and/or comorbidities Examination of Body Systems (PT Eval Complexity): total of 4 or more elements Clinical Presentation (PT Evaluation Complexity): stable Clinical Decision Making (PT Evaluation Complexity): low complexity Overall Complexity (PT Evaluation Complexity): low complexity PT Charges Row Name 04/06/25 1148 Time Calculation Start Time 1122 -LM PT Received On 04/06/25 -LM Untimed Charges PT Eval/Re-eval Minutes 31 -LM Total Minutes Untimed Charges Total Minutes 31 -LM Total Minutes 31 -LM User Cabrera (r) = Recorded By, (t) = Taken By, (c) = Cosigned By Initials Name Provider Type Susan Cavazos, PT Physical Therapist Therapy Charges for Today Code Description Service Date Service Provider Modifiers Qty [id number] PT EVAL LOW COMPLEXITY 3 04/06/2025 Susan Cavazos PT GP 1 PT G-Codes Outcome Measure Options: AM-PAC 6 Clicks Basic Mobility (PT) AM-PAC 6 Clicks Score (PT): 23 PT Discharge Summary Anticipated Discharge Disposition (PT): home Susan Cavazos PT 04/06/2025 documented in this encounter Medications at Time of Discharge acetaminophen (TYLENOL) 500 MG tablet Take 1 tablet by mouth Every 6 (Six) Hours As Needed for Mild Pain, Headache or Fever. 04/11/2025 atorvastatin (LIPITOR) 40 MG tablet Take 1 tablet by mouth Every Night. 03/26/2025 coenzyme Q10 100 MG capsule Take 2 capsules by mouth Daily. Eliquis 5 MG tablet tablet Take 1 tablet by mouth Every 12 (Twelve) Hours. 03/26/2025 ezetimibe (ZETIA) 10 MG tablet Take 1 tablet by mouth Every Night. 03/26/2025 famotidine (PEPCID) 20 MG tablet Take 1 tablet by mouth 2 (Two) Times a Day. 03/28/2025 FeroSul 325 (65 Fe) MG tablet Take 1 tablet by mouth 2 (Two) Times a Day With Meals. 03/26/2025 furosemide (LASIX) 20 MG tablet Take 1 tablet by mouth Daily. 03/28/2025 hydroCHLOROthiaz darryl 12.5 MG tablet Take 1 tablet by mouth Daily. 03/26/2025 omega-3 acid ethyl esters (LOVAZA) 1 g capsule Take 1 capsule by mouth Every Night. 03/26/2025 oxybutynin XL (DITROPAN-XL) 10 MG 24 hr tablet Take 1 tablet by mouth Every Night. 03/26/2025 saccharomyces boulardii (FLORASTOR) 250 MG capsule Take 1 capsule by mouth 2 (Two) Times a Day. 60 capsule 04/11/2025 sertraline (ZOLOFT) 100 MG tablet Take 1 tablet by mouth Every Night. 03/26/2025 tamsulosin (FLOMAX) 0.4 MG capsule 24 hr capsule Take 1 capsule by mouth Every Night. 03/26/2025 oxyCODONE (ROXICODONE) 5 MG immediate release tabletIndication s:Right BKA infection Take 1 tablet by mouth Every 4 (Four) Hours As Needed for Moderate Pain. 42 tablet 04/08/2025 Symbicort 160-4.5 MCG/ACT inhaler Inhale 2 puffs 2 (Two) Times a Day. 03/26/2025 DAPTOmycin 800 mg in sodium chloride 0.9 % 50 mLIndications:Sk in and Soft Tissue Infection Infuse 800 mg into a venous catheter Daily for 4 doses. Indications: Infection of the Skin and/or Soft Tissue 04/12/2025 documented as of this encounter Progress Notes * Cherri Bonner PA - 04/11/2025 8:32 AM EDT Images from the original note were not included. Won Griffiner LOS: 7 days Patient Care Team: Provider, No Known as PCP - General Chief Complaint: Right below-knee amputation cellulitis Subjective Interval History: Resting comfortably bed this morning. Pain tolerable, no acute events overnight. Review of Systems: Gen-complains of subjective fevers CV- No chest pain, palpitations Resp- No cough, dyspnea GI- No N/V/D, abd pain Objective Vital Signs Vital Signs (last 24 hours) 04/05 0700 04/06 0659 04/06 0700 04/06 1233 Most Recent Temp (??F) 98.5 - 100.9 98.8 98.8 (37.1) 04/06 0858 Heart Rate 60 - 100 87 87 04/06 0858 Resp 16 - 18 18 18 04/06 0858 BP 110/62 - 122/75 120/69 120/69 04/06 0858 SpO2 (%) 88 - 94 90 04/06 0420 Physical Exam: Alert, oriented. No acute distress. Nonlabored respirations. Regular rate and rhythm. Abdomen nondistended. Right lower extremity: Dressing in place is clean, dry, intact. Results Review: I reviewed the patient's new clinical results. Medication Review: Hospital Medications (active) Dose Frequency Start End acetaminophen (TYLENOL) 160 MG/5ML oral solution 500 mg 500 mg Every 6 Hours PRN 04/04/2025 -- Admin Instructions: If given for fever, use fever parameter: fever greater than 100.4 ??F Based on patient request - if ordered for moderate or severe pain, provider allows for administration of a medication prescribed for a lower pain scale. Do not exceed 4 grams of acetaminophen in a 24 hr period. Max dose of 2gm for AST/ALT greater than 120 units/L. If given for pain, use the following pain scale: Mild Pain = Pain Score of 1-3, CPOT 1-2 Moderate Pain = Pain Score of 4-6, CPOT 3-4 Severe Pain = Pain Score of 7-10, CPOT 5-8 Route: Oral Linked Group 1: Placed in Or Linked Group acetaminophen (TYLENOL) suppository 325 mg 325 mg Every 6 Hours PRN 04/04/2025 -- Admin Instructions: If given for fever, use fever parameter: fever greater than 100.4 ??F Based on patient request - if ordered for moderate or severe pain, provider allows for administration of a medication prescribed for a lower pain scale. Do not exceed 4 grams of acetaminophen in a 24 hr period. Max dose of 2gm for AST/ALT greater than 120 units/L. If given for pain, use the following pain scale: Mild Pain = Pain Score of 1-3, CPOT 1-2 Moderate Pain = Pain Score of 4-6, CPOT 3-4 Severe Pain = Pain Score of 7-10, CPOT 5-8 Route: Rectal Linked Group 1: Placed in Or Linked Group acetaminophen (TYLENOL) tablet 500 mg 500 mg Every 6 Hours PRN 04/04/2025 -- Admin Instructions: If given for fever, use fever parameter: fever greater than 100.4 ??F Based on patient request - if ordered for moderate or severe pain, provider allows for administration of a medication prescribed for a lower pain scale. Do not exceed 4 grams of acetaminophen in a 24 hr period. Max dose of 2gm for AST/ALT greater than 120 units/L. If given for pain, use the following pain scale: Mild Pain = Pain Score of 1-3, CPOT 1-2 Moderate Pain = Pain Score of 4-6, CPOT 3-4 Severe Pain = Pain Score of 7-10, CPOT 5-8 Route: Oral Linked Group 1: Placed in Or Linked Group atorvastatin (LIPITOR) tablet 40 mg 40 mg Nightly 04/04/2025 -- Admin Instructions: Avoid grapefruit juice. Route: Oral bisacodyl (DULCOLAX) EC tablet 5 mg 5 mg Daily PRN 04/04/2025 -- Admin Instructions: Use if no bowel movement after 12 hours. Swallow whole. Do not crush, split, or chew tablet. Route: Oral Linked Group 2: Placed in And Linked Group bisacodyl (DULCOLAX) suppository 10 mg 10 mg Daily PRN 04/04/2025 -- Admin Instructions: Use if no bowel movement after 12 hours. Hold for diarrhea Route: Rectal Linked Group 2: Placed in And Linked Group Calcium Replacement - Follow Nurse / BPA Driven Protocol As Needed 04/04/2025 -- Admin Instructions: Open Order & Select S Electrolyte Replacement Protocol Algorithm to View Details Route: Not Applicable cefTRIAXone (ROCEPHIN) 2,000 mg in sodium chloride 0.9 % 100 mL MBP 2,000 mg Every 24 Hours 04/05/2025 04/16/2025 Admin Instructions: LR should be paused and flushing of the line with NS is recommended prior to and after completion of ceftriaxone infusion due to incompatibility. Do not co-adminster with calcium-containing solutions. Caution: Look alike/sound alike drug alert Route: Intravenous clotrimazole-betamethasone (LOTRISONE) 1-0.05 % cream 1 Application 1 Application Every 12 Hours Scheduled 04/05/2025 04/12/2025 Admin Instructions: Apply to posterior thigh to rash. Route: Topical DAPTOmycin (CUBICIN) 800 mg in sodium chloride 0.9 % 50 mL IVPB 8 mg/kg ?? 98.8 kg (Adjusted) Every24 Hours 04/06/2025 04/16/2025 Admin Instructions: Caution: Look alike/sound alike drug alert. Refrigerate. Do not shake. Route: Intravenous ferrous sulfate tablet 325 mg 325 mg 2 Times Daily 04/04/2025 -- Admin Instructions: Swallow whole. Do not crush, split, or chew. Take with food if GI upset occurs. Route: Oral furosemide (LASIX) tablet 20 mg 20 mg Daily 04/05/2025 -- Route: Oral heparin 01703 units/250 mL (100 units/mL) in 0.45 % NaCl infusion 16 Units/kg/hr ?? 134 kg Titrated04/05/2025 -- Admin Instructions: Pharmacy dosing - VTE (PE/DVT) - Boluses (No initial bolus) Route: Intravenous hydroCHLOROthiazide tablet 12.5 mg 12.5 mg Daily 04/05/2025 -- Admin Instructions: Caution: Look alike/sound alike drug alert Route: Oral HYDROmorphone (DILAUDID) injection 0.5 mg 0.5 mg Every 2 Hours PRN 04/04/2025 04/09/2025 Admin Instructions: Based on patient request - if ordered for moderate or severe pain, provider allows for administration of a medication prescribed for a lower pain scale. If given for pain, use the following pain scale: Mild Pain = Pain Score of 1-3, CPOT 1-2 Moderate Pain = Pain Score of 4-6, CPOT 3-4 Severe Pain = Pain Score of 7-10, CPOT 5-8 Route: Intravenous Magnesium Standard Dose Replacement - Follow Nurse / BPA Driven Protocol As Needed 04/04/2025 -- Admin Instructions: Open Order & Select S Electrolyte Replacement Protocol Algorithm to View Details Route: Not Applicable nitroglycerin (NITROSTAT) SL tablet 0.4 mg 0.4 mg Every 5 Minutes PRN 04/04/2025 -- Admin Instructions: If Pain Unrelieved After 3 Doses Notify MD May administer up to 3 doses per episode. Hold if SBP less than 100. Route: Sublingual ondansetron ODT (ZOFRAN-ODT) disintegrating tablet 4 mg 4 mg Every 6 Hours PRN 04/06/2025 -- Admin Instructions: If multiple N/V medications ordered, use in the following order: Ondansetron, Prochlorperazine, Promethazine. Use PO unless patient refuses or patient unable to swallow. Place on tongue and allow to dissolve. Route: Translingual oxybutynin XL (DITROPAN-XL) 24 hr tablet 10 mg 10 mg Nightly 04/04/2025 -- Admin Instructions: Do not crush or chew the capsules or tablets. The drug may not work as designedif the capsule or tablet is crushed or chewed. Swallow whole. Route: Oral Pharmacy to Dose Heparin Continuous PRN 04/04/2025 -- Route: Not Applicable Phosphorus Replacement - Follow Nurse / BPA Driven Protocol As Needed 04/04/2025 -- Admin Instructions: Open Order & Select S Electrolyte Replacement Protocol Algorithm to View Details Route: Not Applicable polyethylene glycol (MIRALAX) packet 17 g 17 g Daily PRN 04/04/2025 -- Admin Instructions: Use if no bowel movement after 12 hours. Mix in 6-8 ounces of water. Use 4-8 ounces of water, tea, or juice for each 17 gram dose. Route: Oral Linked Group 2: Placed in And Linked Group potassium chloride (KLOR-CON M20) CR tablet 40 mEq 40 mEq Every 4 Hours 04/06/2025 04/06/2025 Admin Instructions: Do not crush or chew the capsules or tablets. The drug may not work as designedif the capsule or tablet is crushed or chewed. Swallow whole. Take with food. Route: Oral Potassium Replacement - Follow Nurse / BPA Driven Protocol As Needed 04/04/2025 -- Admin Instructions: Open Order & Select [facility] Electrolyte Replacement Protocol Algorithm to View Details Route: Not Applicable saccharomyces boulardii (FLORASTOR) capsule 250 mg 250 mg 2 Times Daily 04/04/2025 -- Route: Oral sennosides-docusate (PERICOLACE) 8.6-50 MG per tablet 2 tablet 2 tablet 2 Times Daily PRN 04/04/2025-- Admin Instructions: Start bowel management regimen if patient has not had a bowel movement after 12hours. Route: Oral Linked Group 2: Placed in And Linked Group sertraline (ZOLOFT) tablet 100 mg 100 mg Nightly 04/04/2025 -- Route: Oral sodium chloride 0.9 % flush 10 mL 10 mL As Needed 04/04/2025 -- Route: Intravenous Linked Group 3: Placed in And Linked Group sodium chloride 0.9 % flush 10 mL 10 mL Every 12 Hours Scheduled 04/04/2025 -- Route: Intravenous sodium chloride 0.9 % flush 10 mL 10 mL As Needed 04/04/2025 -- Route: Intravenous sodium chloride 0.9 % infusion 40 mL 40 mL As Needed 04/04/2025 -- Admin Instructions: Following administration of an IV intermittent medication, flush line with 40mLNS at 100mL/hr. Route: Intravenous tamsulosin (FLOMAX) 24 hr capsule 0.4 mg 0.4 mg Nightly 04/04/2025 -- Admin Instructions: Do not crush or chew the capsules or tablets. The drug may not work as designedif the capsule or tablet is crushed or chewed. Swallow whole. If patient unable to swallow whole, contact pharmacy for alternative. Route: Oral valsartan (DIOVAN) tablet 40 mg 40 mg Every 24 Hours Scheduled 04/05/2025 -- Admin Instructions: Hold for SBP less than 100, DBP less than 60, or heart rate less than 50. If a dose is held, please contact the provider. Route: Oral Assessment & Plan 44-year-old male status post right below-knee amputation, history of MRSA osteomyelitis, with rightbelow-knee amputation stump cellulitis, concern for developing abscess now status post right lower extremity irrigation, debridement, wound vacuum-assisted closure 04/07/2025 followed by repeat right l ower extremity irrigation, debridement, secondary closure 04/08/25. Right BKA infection Nonweightbearing right lower extremity Follow cultures; wound culture 04/07 with MRSA Antibiotic management per infectious disease; appreciate their recommendations. Agree with PICC line placement Dressing changed, incisions inspected and drain removed at bedside 04/10/25 Ok for discharge from orthopedic standpoint when medically appropriate Follow-up in 2 weeks for incision check, radiographs Follow up with Sushil Dean MD April 21 vs April 22 [facility] [address], [address] [facility], [address] Please schedule at [phone] VONDA Garcia 04/11/25 08:32 EDT Cosigned by Sushil Dean Jr., MD at 04/19/2025 10:33 AM EDT Associated attestation - Sushil Dean Jr., MD - 04/19/2025 10:33 AM EDT I have reviewed this documentation and agree. * Rosario Hill APRN - 04/10/2025 1:24 PM EDT Images from the original note were not included. [facility] Medicine Services PROGRESS NOTE Patient Name: Won Dennis : 1980 Date of Admission: 04/04/2025 Primary Care Physician: Provider, No Known Subjective Subjective CC: Right BKA cellulitis HPI: Pt sitting up in bed hoping to return home today but there was a lapse in his insurance which is delaying discharge. He reports pain at the BKA site. The drain was removed yesterday. Copied text in this note has been reviewed and is accurate as of 04/10/25. Objective Objective Vital Signs: Temp: [98.4 ??F (36.9 ??C)-98.9 ??F (37.2 ??C)] 98.9 ??F (37.2 ??C) Heart Rate: [67-78] 67 Resp: [16-18] 17 BP: (100-112)/(57-70) 100/70 Constitutional: Awake, alert, NAD HENT: NCAT, mucous membranes moist Respiratory: Clear to auscultation bilaterally, nonlabored Cardiovascular: RRR, no murmurs, rubs, or gallops Gastrointestinal: Positive bowel sounds, soft, nontender, nondistended Musculoskeletal: Right BKA with dsg CDI Psychiatric: Appropriate affect, cooperative Neurologic: Oriented x 3, strength symmetric in all extremities, Cranial Nerves grossly intact to confrontation, speech clear Skin: No rashes on exposed skin Results Reviewed: LAB RESULTS: Lab 04/10/25 0346 04/09/25 0418 04/08/25 0841 04/07/25 0910 04/06/25 0341 04/05/25 0354 04/05/25 0018 04/04/25 1447 WBC 9.60 11.00* 10.07 8.63 10.86* 11.18* -- 12.72* HEMOGLOBIN 12.9* 13.0 14.0 14.7 13.9 13.9 -- 15.3 HEMATOCRIT 40.1 40.4 42.7 44.8 43.7 42.4 -- 47.9 PLATELETS 227 211 118* 149 115* 160 -- 232 NEUTROS ABS 5.67 8.23* 8.57* 5.75 7.09* 8.23* -- 9.52* IMMATURE GRANS (ABS) 0.02 0.03 0.05 0.05 0.03 0.04 -- 0.03 LYMPHS ABS 2.78 1.69 0.94 1.77 2.23 1.56 -- 1.66 MONOS ABS 0.78 0.94* 0.46 0.85 1.28* 1.23* -- 1.43* EOS ABS 0.31 0.07 0.03 0.18 0.20 0.09 -- 0.05 MCV 85.9 86.0 85.2 85.7 86.0 84.8 -- 84.9 SED RATE -- -- -- -- -- -- -- 51* CRP -- -- -- -- -- -- -- 8.57* PROTIME -- -- -- -- -- -- 15.9* -- APTT -- -- -- -- -- 35.3* 33.6* -- Lab 04/10/25 0346 04/09/25 0418 04/08/25 0841 04/07/25 0910 04/06/25 1916 04/06/25 0342 SODIUM 137 135* 136 139 -- 138 POTASSIUM 3.9 4.2 4.6 4.2 4.0 3.6 CHLORIDE 102 100 102 105 -- 103 CO2 26.9 26.0 23.5 24.8 -- 24.2 ANION GAP 8.1 9.0 10.5 9.2 -- 10.8 BUN 15.9 23.0* 13.2 13.1 -- 12.8 CREATININE 0.77 1.15 0.69* 0.77 -- 0.80 EGFR 113.2 80.5 117.0 113.2 -- 111.9 GLUCOSE 125* 147* 125* 112* -- 94 CALCIUM 7.9* 8.2* 8.4* 8.6 -- 8.0* Lab 04/04/25 1447 TOTAL PROTEIN 7.3 ALBUMIN 4.1 GLOBULIN 3.2 ALT (SGPT) 26 AST (SGOT) 25 BILIRUBIN 1.0 ALK PHOS 106 Lab 04/05/25 0018 PROTIME 15.9* INR 1.19* Brief Urine Lab Results None Microbiology Results Abnormal Procedure Component Value - Date/Time Wound Culture - Swab, Leg, Right [[id number]] (Abnormal) (Susceptibility) Collected: 04/07/252106 Lab Status: Final result Specimen: Swab from Leg, Right Updated: 04/10/25 1038 Wound Culture Light growth (2+) Staphylococcus aureus, MRSA Comment: Methicillin resistant Staphylococcus aureus, Patient may be an isolation risk. Gram Stain Few (2+) WBCs seen No organisms seen Susceptibility Staphylococcus aureus, MRSA ALIZA Clindamycin Susceptible Erythromycin Resistant Oxacillin Resistant Rifampin Susceptible Tetracycline Susceptible Trimethoprim + Sulfamethoxazole Susceptible Vancomycin Susceptible No radiology results from the last 24 hrs I have personally reviewed the therapy plans: [] PT/OT/ ST Therapy Plans Current medications: Scheduled Meds:apixaban, 5 mg, Oral, Q12H atorvastatin, 40 mg, Oral, Nightly budesonide-formoterol, 2 puff, Inhalation, BID - RT DAPTOmycin, 8 mg/kg (Adjusted), Intravenous, Q24H ethyl alcohol, 2 Swab, Nasal, Once ferrous sulfate, 325 mg, Oral, BID furosemide, 20 mg, Oral, Daily hydroCHLOROthiazide Oral, 12.5 mg, Oral, Daily ketorolac, 15 mg, Intravenous, Once oxybutynin XL, 10 mg, Oral, Nightly saccharomyces boulardii, 250 mg, Oral, BID sertraline, 100 mg, Oral, Nightly sodium chloride, 10 mL, Intravenous, Q12H sodium chloride, 10 mL, Intravenous, Q12H tamsulosin, 0.4 mg, Oral, Nightly [Held by provider] valsartan, 40 mg, Oral, Q24H Continuous Infusions: PRN Meds:. acetaminophen OR acetaminophen OR acetaminophen senna-docusate sodium AND polyethylene glycol AND bisacodyl AND bisacodyl Calcium Replacement - Follow Nurse / BPA Driven Protocol HYDROmorphone Magnesium Standard Dose Replacement - Follow Nurse / BPA Driven Protocol [COMPLETED] HYDROmorphone AND naloxone [COMPLETED] HYDROmorphone AND naloxone nitroglycerin ondansetron ODT oxyCODONE-acetaminophen Phosphorus Replacement - Follow Nurse / BPA Driven Protocol Potassium Replacement - Follow Nurse / BPA Driven Protocol [COMPLETED] Insert Peripheral IV AND sodium chloride sodium chloride sodium chloride sodium chloride sodium chloride sodium chloride Assessment & Plan Assessment & Plan Active Hospital Problems Diagnosis POA 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 Brief Hospital Course to date: Won Dennis is a 44 y.o. 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 MRI concerning for cellulitis. Orthopedic surgery and infectious disease consulted. Status post incision and drainage, debridement, wound VAC, and drain placement with orthopedic surgery on 04/07 and 04/08. Right BKA cellulitis -Patient presenting with 2 to 3 days of right BKA swelling, erythema and pain -MRI RLE revealing cellulitis, no obvious signs of OM or drainable fluid collection -Repeat MRI with small irregular fluid signal foci which may represent small abscess versus infectious phlegmon -Orthopedic surgery consulted, status post incision and drainage, debridement, and wound VAC assisted closure on 04/07. Repeat irrigation, debridement, and secondary closure on 04/08 with drain placement. Potential drain removal with orthopedic surgery tomorrow. Patient will need follow-up with orthopedic surgery in 2 weeks. -Infectious disease consulted, continue daptomycin and ceftriaxone. PICC line placed on 04/09. -PT/OT = home. Patients' mobility limitations impair their ability to participate in activities such as toileting, feeding, dressing, grooming, and bathing. Mobility limitations cannot be resolved bya cane or walker. The patient is able to safely use a manual wheelchair, and he will also have a caregiver in the home as well to help assist with the patient maneuvering. Factor II deficiency -Holding Eliquis for now. Continue heparin drip for now. Transition back to Eliquis prior to discharge. HTN HLD -Continue HCTZ 12.5 mg, lasix 20mg. Hold Valsartan 40 mg for now. -Continue statin Mood disorder -Continue Sertraline BPH -Continue home medications Expected Discharge Location and Transportation: Home 04/11/2025 VTE Prophylaxis: Pharmacologic & mechanical VTE prophylaxis orders are present. AM-PAC 6 Clicks Score (PT): 17 (04/10/25905) CODE STATUS: Code Status and Medical Interventions: CPR (Attempt to Resuscitate); Full Support Ordered at: 04/04/252047 Code Status (Patient has no pulse and is not breathing): CPR (Attempt to Resuscitate) Medical Interventions (Patient has pulse or is breathing): Full Support Level Of Support Discussed With: Patient Rosario Hill APRN 04/10/25 * Cherri Bonner PA - 04/10/2025 9:01 AM EDT Images from the original note were not included. Won Dennis LOS: 6 days Patient Care Team: Provider, No Known as PCP - General Chief Complaint: Right below-knee amputation cellulitis Subjective Interval History: Resting comfortably bed this morning. Pain tolerable, no acute events overnight. Review of Systems: Gen-complains of subjective fevers CV- No chest pain, palpitations Resp- No cough, dyspnea GI- No N/V/D, abd pain Objective Vital Signs Vital Signs (last 24 hours) 04/05 0700 04/06 0659 04/06 0704/06 1233 Most Recent Temp (??F) 98.5 - 100.9 98.8 98.8 (37.1) 04/06 0858 Heart Rate 60 - 100 87 87 04/06 08 Resp 16 - 18 18 18 04/06 0858 BP 110/62 - 122/75 120/69 120/69 04/06 0858 SpO2 (%) 88 - 94 90 04/06 0420 Physical Exam: Alert, oriented. No acute distress. Nonlabored respirations. Regular rate and rhythm. Abdomen nondistended. Right lower extremity: Operative dressing in place is clean, dry, intact. Drain with approximately 5cc serosanguineous output. Incisions inspected, appear clean, well healing. Skin edges well approximated, sutures in place. Scant serosanguineous oozing from proximal incision. No erythema, induration, purulence, warmth. Results Review: I reviewed the patient's new clinical results. Medication Review: Hospital Medications (active) Dose Frequency Start End acetaminophen (TYLENOL) 160 MG/5ML oral solution 500 mg 500 mg Every 6 Hours PRN 04/04/2025 -- Admin Instructions: If given for fever, use fever parameter: fever greater than 100.4 ??F Based on patient request - if ordered for moderate or severe pain, provider allows for administration of a medication prescribed for a lower pain scale. Do not exceed 4 grams of acetaminophen in a 24 hr period. Max dose of 2gm for AST/ALT greater than 120 units/L. If given for pain, use the following pain scale: Mild Pain = Pain Score of 1-3, CPOT 1-2 Moderate Pain = Pain Score of 4-6, CPOT 3-4 Severe Pain = Pain Score of 7-10, CPOT 5-8 Route: Oral Linked Group 1: Placed in Or Linked Group acetaminophen (TYLENOL) suppository 325 mg 325 mg Every 6 Hours PRN 04/04/2025 -- Admin Instructions: If given for fever, use fever parameter: fever greater than 100.4 ??F Based on patient request - if ordered for moderate or severe pain, provider allows for administration of a medication prescribed for a lower pain scale. Do not exceed 4 grams of acetaminophen in a 24 hr period. Max dose of 2gm for AST/ALT greater than 120 units/L. If given for pain, use the following pain scale: Mild Pain = Pain Score of 1-3, CPOT 1-2 Moderate Pain = Pain Score of 4-6, CPOT 3-4 Severe Pain = Pain Score of 7-10, CPOT 5-8 Route: Rectal Linked Group 1: Placed in Or Linked Group acetaminophen (TYLENOL) tablet 500 mg 500 mg Every 6 Hours PRN 04/04/2025 -- Admin Instructions: If given for fever, use fever parameter: fever greater than 100.4 ??F Based on patient request - if ordered for moderate or severe pain, provider allows for administration of a medication prescribed for a lower pain scale. Do not exceed 4 grams of acetaminophen in a 24 hr period. Max dose of 2gm for AST/ALT greater than 120 units/L. If given for pain, use the following pain scale: Mild Pain = Pain Score of 1-3, CPOT 1-2 Moderate Pain = Pain Score of 4-6, CPOT 3-4 Severe Pain = Pain Score of 7-10, CPOT 5-8 Route: Oral Linked Group 1: Placed in Or Linked Group atorvastatin (LIPITOR) tablet 40 mg 40 mg Nightly 04/04/2025 -- Admin Instructions: Avoid grapefruit juice. Route: Oral bisacodyl (DULCOLAX) EC tablet 5 mg 5 mg Daily PRN 04/04/2025 -- Admin Instructions: Use if no bowel movement after 12 hours. Swallow whole. Do not crush, split, or chew tablet. Route: Oral Linked Group 2: Placed in And Linked Group bisacodyl (DULCOLAX) suppository 10 mg 10 mg Daily PRN 04/04/2025 -- Admin Instructions: Use if no bowel movement after 12 hours. Hold for diarrhea Route: Rectal Linked Group 2: Placed in And Linked Group Calcium Replacement - Follow Nurse / BPA Driven Protocol As Needed 04/04/2025 -- Admin Instructions: Open Order & Select S Electrolyte Replacement Protocol Algorithm to View Details Route: Not Applicable cefTRIAXone (ROCEPHIN) 2,000 mg in sodium chloride 0.9 % 100 mL MBP 2,000 mg Every 24 Hours 04/05/2025 04/16/2025 Admin Instructions: LR should be paused and flushing of the line with NS is recommended prior to and after completion of ceftriaxone infusion due to incompatibility. Do not co-adminster with calcium-containing solutions. Caution: Look alike/sound alike drug alert Route: Intravenous clotrimazole-betamethasone (LOTRISONE) 1-0.05 % cream 1 Application 1 Application Every 12 Hours Scheduled 04/05/2025 04/12/2025 Admin Instructions: Apply to posterior thigh to rash. Route: Topical DAPTOmycin (CUBICIN) 800 mg in sodium chloride 0.9 % 50 mL IVPB 8 mg/kg ?? 98.8 kg (Adjusted) Every24 Hours 04/06/2025 04/16/2025 Admin Instructions: Caution: Look alike/sound alike drug alert. Refrigerate. Do not shake. Route: Intravenous ferrous sulfate tablet 325 mg 325 mg 2 Times Daily 04/04/2025 -- Admin Instructions: Swallow whole. Do not crush, split, or chew. Take with food if GI upset occurs. Route: Oral furosemide (LASIX) tablet 20 mg 20 mg Daily 04/05/2025 -- Route: Oral heparin 63133 units/250 mL (100 units/mL) in 0.45 % NaCl infusion 16 Units/kg/hr ?? 134 kg Titrated04/05/2025 -- Admin Instructions: Pharmacy dosing - VTE (PE/DVT) - Boluses (No initial bolus) Route: Intravenous hydroCHLOROthiazide tablet 12.5 mg 12.5 mg Daily 04/05/2025 -- Admin Instructions: Caution: Look alike/sound alike drug alert Route: Oral HYDROmorphone (DILAUDID) injection 0.5 mg 0.5 mg Every 2 Hours PRN 04/04/2025 04/09/2025 Admin Instructions: Based on patient request - if ordered for moderate or severe pain, provider allows for administration of a medication prescribed for a lower pain scale. If given for pain, use the following pain scale: Mild Pain = Pain Score of 1-3, CPOT 1-2 Moderate Pain = Pain Score of 4-6, CPOT 3-4 Severe Pain = Pain Score of 7-10, CPOT 5-8 Route: Intravenous Magnesium Standard Dose Replacement - Follow Nurse / BPA Driven Protocol As Needed 04/04/2025 -- Admin Instructions: Open Order & Select [facility] Electrolyte Replacement Protocol Algorithm to View Details Route: Not Applicable nitroglycerin (NITROSTAT) SL tablet 0.4 mg 0.4 mg Every 5 Minutes PRN 04/04/2025 -- Admin Instructions: If Pain Unrelieved After 3 Doses Notify MD May administer up to 3 doses per episode. Hold if SBP less than 100. Route: Sublingual ondansetron ODT (ZOFRAN-ODT) disintegrating tablet 4 mg 4 mg Every 6 Hours PRN 04/06/2025 -- Admin Instructions: If multiple N/V medications ordered, use in the following order: Ondansetron, Prochlorperazine, Promethazine. Use PO unless patient refuses or patient unable to swallow. Place on tongue and allow to dissolve. Route: Translingual oxybutynin XL (DITROPAN-XL) 24 hr tablet 10 mg 10 mg Nightly 04/04/2025 -- Admin Instructions: Do not crush or chew the capsules or tablets. The drug may not work as designedif the capsule or tablet is crushed or chewed. Swallow whole. Route: Oral Pharmacy to Dose Heparin Continuous PRN 04/04/2025 -- Route: Not Applicable Phosphorus Replacement - Follow Nurse / BPA Driven Protocol As Needed 04/04/2025 -- Admin Instructions: Open Order & Select [facility] Electrolyte Replacement Protocol Algorithm to View Details Route: Not Applicable polyethylene glycol (MIRALAX) packet 17 g 17 g Daily PRN 04/04/2025 -- Admin Instructions: Use if no bowel movement after 12 hours. Mix in 6-8 ounces of water. Use 4-8 ounces of water, tea, or juice for each 17 gram dose. Route: Oral Linked Group 2: Placed in And Linked Group potassium chloride (KLOR-CON M20) CR tablet 40 mEq 40 mEq Every 4 Hours 04/06/2025 04/06/2025 Admin Instructions: Do not crush or chew the capsules or tablets. The drug may not work as designedif the capsule or tablet is crushed or chewed. Swallow whole. Take with food. Route: Oral Potassium Replacement - Follow Nurse / BPA Driven Protocol As Needed 04/04/2025 -- Admin Instructions: Open Order & Select [facility] Electrolyte Replacement Protocol Algorithm to View Details Route: Not Applicable saccharomyces boulardii (FLORASTOR) capsule 250 mg 250 mg 2 Times Daily 04/04/2025 -- Route: Oral sennosides-docusate (PERICOLACE) 8.6-50 MG per tablet 2 tablet 2 tablet 2 Times Daily PRN 04/04/2025-- Admin Instructions: Start bowel management regimen if patient has not had a bowel movement after 12hours. Route: Oral Linked Group 2: Placed in And Linked Group sertraline (ZOLOFT) tablet 100 mg 100 mg Nightly 04/04/2025 -- Route: Oral sodium chloride 0.9 % flush 10 mL 10 mL As Needed 04/04/2025 -- Route: Intravenous Linked Group 3: Placed in And Linked Group sodium chloride 0.9 % flush 10 mL 10 mL Every 12 Hours Scheduled 04/04/2025 -- Route: Intravenous sodium chloride 0.9 % flush 10 mL 10 mL As Needed 04/04/2025 -- Route: Intravenous sodium chloride 0.9 % infusion 40 mL 40 mL As Needed 04/04/2025 -- Admin Instructions: Following administration of an IV intermittent medication, flush line with 40mLNS at 100mL/hr. Route: Intravenous tamsulosin (FLOMAX) 24 hr capsule 0.4 mg 0.4 mg Nightly 04/04/2025 -- Admin Instructions: Do not crush or chew the capsules or tablets. The drug may not work as designedif the capsule or tablet is crushed or chewed. Swallow whole. If patient unable to swallow whole, contact pharmacy for alternative. Route: Oral valsartan (DIOVAN) tablet 40 mg 40 mg Every 24 Hours Scheduled 04/05/2025 -- Admin Instructions: Hold for SBP less than 100, DBP less than 60, or heart rate less than 50. If a dose is held, please contact the provider. Route: Oral Assessment & Plan 44-year-old male status post right below-knee amputation, history of MRSA osteomyelitis, with rightbelow-knee amputation stump cellulitis, concern for developing abscess now status post right lower extremity irrigation, debridement, wound vacuum-assisted closure 04/07/2025 followed by repeat right l ower extremity irrigation, debridement, secondary closure 04/08/25. Right BKA infection Nonweightbearing right lower extremity Follow cultures; wound culture 04/07 with MRSA Antibiotic management per infectious disease; appreciate their recommendations. Agree with PICC line placement Dressing changed, incisions inspected and drain removed at bedside 04/10/25 To begin postoperative day 3, daily dressing changes: Xeroform, 4 x 4, Kerlix, Shaquille Ok for discharge from orthopedic standpoint when medically appropriate Follow-up in 2 weeks for incision check, radiographs Follow up with Sushil Dean MD April 21 vs April 22 [facility] [address], [address] [facility], [address] Please schedule at [phone] VONDA Garcia 04/10/25 09:01 EDT Cosigned by Sushil Dean Jr., MD at 04/19/2025 10:33 AM EDT Associated attestation - Sushil Dean Jr., MD - 04/19/2025 10:33 AM EDT I have reviewed this documentation and agree. * Carlton Mead MD - 04/10/2025 7:38 AM EDT Images from the original note were not included. INFECTIOUS DISEASE Progress Note Won Dennis 1980 [id number] Date of Consult: 04/10/2025 Admission Date: 04/04/2025 Requesting Provider: Evaluating Physician: Dr. Mable Mead MD. 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 He c/o swelling with erythema for several days after a new prosthesis was fitted, which prompted him to seek treatment at [facility]. He is known to Dr. Dean. He denies recent antibiotics. He has an intolerance to keflex, he became severely nauseated with infusion. MRI completed yesterday demonstrates area of hypoatttenuation with small area of phlegmonous change. No osteomyelitis. No knee joint effusion. Denies n/v, or fever. No other symptoms. WBC count 12.7 on admission with sed rate of 51, CRP 8.57. Creatinine normal. No cultures obtained here. Known MRSA from previous wound 05/09/25. HDS, on Heparin gtt. Currently [facility] has been asked to manage the antimicrobials in this patient. 04/06/25: WBC count downtrending. Mild fever 99.2, with TMAX 100..9. The leg looks less erythematous, no pain to examination. 04/07/2025: His maximum temperature over the last 24 hours is 100.4. He has decreased right BKA stump pain. The rash over his popliteal fossa is markedly improved. His distal BKA stump erythema is markedly better. A follow-up MRI scan reveals small irregular fluid signal foci in the anterior lateralaspect of the BKA stump. 04/08/2025: he has remained afebrile. He underwent right BKA stump debridement last evening. Operative cultures are pending. White blood cell count yesterday was 8.6. he underwent repeat right BKA stump debridement today. 04/09/25: He has remained afebrile. Right BKA stump fluid from 04/07 is no growth so far. Cultures from 04/08 are also no growth so far. Later today is operative cultures from 04/07 turned positive for MRSA. 04/10/2025: He remains afebrile. White blood cell count is 9.6. He underwent PICC line placement yesterday. He denies uncontrolled pain. He would like to go home. Past Medical History: Diagnosis Date Amputation finger Anxiety and depression Asthma Bone spur of right foot CHF (congestive heart failure) Hx of right BKA 2022 Hyperlipidemia Hypertension MRSA (methicillin resistant Staphylococcus aureus) infection 05/09/2023 Right leg wound culture Osteomyelitis PE (pulmonary thromboembolism) Prostate enlargement Sleep apnea Past Surgical History: Procedure Laterality Date AMPUTATION Left left hand, index finger amputated past the first knuckle ANKLE TENDON REPAIR Left BACK SURGERY BELOW KNEE LEG AMPUTATION Right 2022 CARDIAC CATHETERIZATION LEG DEBRIDEMENT Right 04/07/2025 Procedure: LEG DEBRIDEMENT, IRRIGATION; Surgeon: Sushil Dean Jr., MD; Location: [facility]; Service: Orthopedics; Laterality: Right; PLACEMENT OF WOUND VAC Right 04/07/2025 Procedure: WOUND VACUUM ASSISTED CLOSURE; Surgeon: Sushil Dean Jr., MD; Location: [facility]; Service: Orthopedics; Laterality: Right; WOUND CLOSURE Right 04/08/2025 Procedure: WOUND CLOSURE DELAYED; Surgeon: Sushil Dean Jr., MD; Location: [facility]; Service:Orthopedics; Laterality: Right; WOUND DEBRIDEMENT Right 04/08/2025 Procedure: LEG DEBRIDEMENT AND IRRIGATION; Surgeon: Sushil Dean Jr., MD; Location: [facility];Service: Orthopedics; Laterality: Right; History reviewed. No pertinent family history. Social History Socioeconomic History Marital status: Unknown Tobacco Use Smoking status: Never Smokeless tobacco: Never Vaping Use Vaping status: Never Used Substance and Sexual Activity Alcohol use: Not Currently Drug use: Never Sexual activity: Defer Allergies Allergen Reactions Ceftin [Cefuroxime] Nausea And Vomiting Keflex [Cephalexin] Nausea And Vomiting Latex Rash Medication: Current Facility-Administered Medications: acetaminophen (TYLENOL) tablet 500 mg, 500 mg, Oral, Q6H PRN, 500 mg at 04/09/252032 OR acetaminophen (TYLENOL) 160 MG/5ML oral solution 500 mg, 500 mg, Oral, Q6H PRN, 500 mg at 04/06/25 0036 OR acetaminophen (TYLENOL) suppository 325 mg, 325 mg, Rectal, Q6H PRN, Sushil Dean Jr., MD [Held by provider] apixaban (ELIQUIS) tablet 5 mg, 5 mg, Oral, Q12H, Sushil Dean Jr., MD atorvastatin (LIPITOR) tablet 40 mg, 40 mg, Oral, Nightly, Sushil Dean Jr., MD, 40 mg at 04/09/252026 sennosides-docusate (PERICOLACE) 8.6-50 MG per tablet 2 tablet, 2 tablet, Oral, BID PRN AND polyethylene glycol (MIRALAX) packet 17 g, 17 g, Oral, Daily PRN AND bisacodyl (DULCOLAX) EC tablet5 mg, 5 mg, Oral, Daily PRN AND bisacodyl (DULCOLAX) suppository 10 mg, 10 mg, Rectal, Daily PRN, Sushil Dean Jr., MD budesonide-formoterol (SYMBICORT) 160-4.5 MCG/ACT inhaler 2 puff, 2 puff, Inhalation, BID - RT, Sushil Dean Jr., MD, 2 puff at 04/09/25 194 Calcium Replacement - Follow Nurse / BPA Driven Protocol, , Not Applicable, PRN, Sushil Dean Jr., MD DAPTOmycin (CUBICIN) 800 mg in sodium chloride 0.9 % 50 mL IVPB, 8 mg/kg (Adjusted), Intravenous, Q24H, Sushil Dean Jr., MD, Last Rate: 100 mL/hr at 04/09/25906, 800 mg at 04/09/25906 ethyl alcohol 62 % 2 each, 2 Swab, Nasal, Once, Sushil Dean Jr., MD ferrous sulfate tablet 325 mg, 325 mg, Oral, BID, Sushil Dean Jr., MD, 325 mg at 04/09/252026 furosemide (LASIX) tablet 20 mg, 20 mg, Oral, Daily, Sushil Dean Jr., MD, 20 mg at 04/09/25906 heparin 51854 units/250 mL (100 units/mL) in 0.45 % NaCl infusion, 18 Units/kg/hr, Intravenous, Titrated, Una Perla, PharmD, Last Rate: 24.1 mL/hr at 04/10/25312, 18 Units/kg/hr at 04/10/25312 hydroCHLOROthiazide tablet 12.5 mg, 12.5 mg, Oral, Daily, Sushil Dean Jr., MD, 12.5 mg at 04/09/25 0906 HYDROmorphone (DILAUDID) injection 0.5 mg, 0.5 mg, Intravenous, Q2H PRN, Yeyo Arzola III, DO, 0.5 mg at 04/10/25 0655 ketorolac (TORADOL) injection 15 mg, 15 mg, Intravenous, Once, Monisha Jones APRN Magnesium Standard Dose Replacement - Follow Nurse / BPA Driven Protocol, , Not Applicable, PRN, Sushil Dean Jr., MD [COMPLETED] HYDROmorphone (DILAUDID) injection 1 mg, 1 mg, Intravenous, Q15 Min PRN, 1 mg at 04/08/25 1648 AND naloxone (NARCAN) injection 0.4 mg, 0.4 mg, Intravenous, Q5 Min PRN, Benito Dean Jr., MD [COMPLETED] HYDROmorphone (DILAUDID) injection 1 mg, 1 mg, Intravenous, Q15 Min PRN, 1 mg at 04/08/25 1739 AND naloxone (NARCAN) injection 0.4 mg, 0.4 mg, Intravenous, Q5 Min PRN, Benito Dean Jr., MD nitroglycerin (NITROSTAT) SL tablet 0.4 mg, 0.4 mg, Sublingual, Q5 Min PRN, Sushil Dean Jr., MD ondansetron ODT (ZOFRAN-ODT) disintegrating tablet 4 mg, 4 mg, Translingual, Q6H PRN, Sushil Dean Jr., MD, 4 mg at 04/06/25 1002 oxybutynin XL (DITROPAN-XL) 24 hr tablet 10 mg, 10 mg, Oral, Nightly, Sushil Dean Jr., MD, 10mg at 04/09/252026 oxyCODONE-acetaminophen (PERCOCET) 5-325 MG per tablet 1 tablet, 1 tablet, Oral, Q6H PRN, Yeyo Arzola III, DO, 1 tablet at 04/10/25 0313 Pharmacy to Dose Heparin, , Not Applicable, Continuous PRN, Sushil Dean Jr., MD Phosphorus Replacement - Follow Nurse / BPA Driven Protocol, , Not Applicable, PRN, Benito Dean Jr., MD Potassium Replacement - Follow Nurse / BPA Driven Protocol, , Not Applicable, PRN, Sushil Dean Jr., MD saccharomyces boulardii (FLORASTOR) capsule 250 mg, 250 mg, Oral, BID, Sushil Dean Jr., MD, 250 mg at 04/09/252026 sertraline (ZOLOFT) tablet 100 mg, 100 mg, Oral, Nightly, Sushil Dean Jr., MD, 100 mg at 04/09/252026 [COMPLETED] Insert Peripheral IV, , , Once AND sodium chloride 0.9 % flush 10 mL, 10 mL, Intravenous, PRN, Sushil Dean Jr., MD sodium chloride 0.9 % flush 10 mL, 10 mL, Intravenous, Q12H, Sushil Dean Jr., MD, 10 mL at 04/09/252026 sodium chloride 0.9 % flush 10 mL, 10 mL, Intravenous, PRN, Sushil Dean Jr., MD sodium chloride 0.9 % flush 10 mL, 10 mL, Intravenous, Q12H, Carlton Mead MD, 10 mL at 04/09/25 1439 sodium chloride 0.9 % flush 10 mL, 10 mL, Intravenous, PRLili, Carlton Mead MD sodium chloride 0.9 % flush 20 mL, 20 mL, Intravenous, PRN, Carlton Mead MD sodium chloride 0.9 % infusion 40 mL, 40 mL, Intravenous, PRN, Sushil Dean Jr., MD sodium chloride 0.9 % infusion 40 mL, 40 mL, Intravenous, PRN, Carlton Mead MD tamsulosin (FLOMAX) 24 hr capsule 0.4 mg, 0.4 mg, Oral, Nightly, Sushil Dean Jr., MD, 0.4 mg at 04/09/252026 [Held by provider] valsartan (DIOVAN) tablet 40 mg, 40 mg, Oral, Q24H, Sushil Dena Jr., MD, 40 mg at 04/08/25 0800 Antibiotics: Anti-Infectives (From admission, onward) Ordered Dose/Rate Route Frequency Start Stop 04/08/25 1600 vancomycin (VANCOCIN) powder Status: Discontinued Ordering Provider: Sushil Dean Jr., MD As Needed 04/08/25 1555 04/08/25 1637 04/08/25 1354 vancomycin IVPB 2000 mg in 0.9% Sodium Chloride 500 mL Status: Discontinued Ordering Provider: Sushil Dean Jr., MD 15 mg/kg ?? 134 kg 250 mL/hr over 120 Minutes Intravenous Once 04/08/25 1356 04/08/25 1411 04/07/25 1644 vancomycin IVPB 2000 mg in 0.9% Sodium Chloride 500 mL Ordering Provider: Sushil Dean Jr., MD 15 mg/kg ?? 134 kg 250 mL/hr over 120 Minutes Intravenous Once 04/07/25 1646 04/07/25 2036 04/06/25 0815 DAPTOmycin (CUBICIN) 800 mg in sodium chloride 0.9 % 50 mL IVPB Ordering Provider: Sushil Dean Jr., MD 8 mg/kg ?? 98.8 kg (Adjusted) 100 mL/hr over 30 Minutes Intravenous Every 24 Hours 04/06/25 1000 04/16/25 0959 04/04/252005 cefTRIAXone (ROCEPHIN) 2,000 mg in sodium chloride 0.9 % 100 mL MBP Status: Discontinued Ordering Provider: Sushil Dean Jr., MD 2,000 mg 200 mL/hr over 30 Minutes Intravenous Every 24 Hours 04/05/25199904/09/25 2144 04/05/25 1207 DAPTOmycin (CUBICIN) 800 mg in sodium chloride 0.9 % 50 mL IVPB Ordering Provider: Carlton Mead MD 8 mg/kg ?? 98.8 kg (Adjusted) 100 mL/hr over 30 Minutes Intravenous Every 24 Hours 04/05/25 1300 04/05/25 1427 04/05/25 0031 vancomycin IVPB 1500 mg in 0.9% NaCl (Premix) 500 mL Status: Discontinued Ordering Provider: Una Perla, PharmD 1,500 mg 333.3 mL/hr over 90 Minutes Intravenous Every 12 Hours 04/05/25 0800 04/05/25 1207 04/04/252004 Pharmacy to dose vancomycin Status: Discontinued Ordering Provider: Leonora Shepherd MD Not Applicable Continuous PRN 04/04/25200404/05/25 1207 04/04/25 194 vancomycin 2750 mg/500 mL 0.9% NS IVPB ([facility]) Ordering Provider: Mario Crowley, DO 20 mg/kg ?? 134 kg over 165 Minutes Intravenous Once 04/04/25195804/04/25230604/04/251942 cefTRIAXone (ROCEPHIN) 2,000 mg in sodium chloride 0.9 % 100 mL MBP Ordering Provider: Leonora Shepherd MD 2,000 mg 200 mL/hr over 30 Minutes Intravenous Once 04/04/25195804/05/25 0012 Review of Systems: See HPI Physical Exam: Vital Signs Temp (24hrs), Av.1 ??F (36.7 ??C), Min:97.8 ??F (36.6 ??C), Max:98.4 ??F (36.9 ??C) Temp Min: 97.8 ??F (36.6 ??C) Max: 98.4 ??F (36.9 ??C) BP Min: 104/70 Max: 112/66 Pulse Min: 65 Max: 78 Resp Min: 16 Max: 18 SpO2 Min: 93 % Max: 97 % GENERAL: Awake and alert, in moderate distress, pulling covers off c/o feeling hot HEENT: Normocephalic, atraumatic. PERRL. EOMI. No conjunctival injection. No icterus. NECK: Supple . HEART: RRR; No murmur, rubs, gallops. LUNGS: Coarse auscultation bilaterally without wheezing, rales, rhonchi. Normal respiratory effort.Nonlabored. ABDOMEN: Soft, nontender, nondistended. No rebound or guarding. NO mass or HSM. EXT: . Right BKA stump is dressed.. : Without Shoemaker catheter. MSK: No joint effusions or erythema SKIN: No diffuse rash. NEURO: Oriented to PPT. Motor 5/5 strength PSYCHIATRIC: Normal insight and judgment. Cooperative with PE Right arm PICC line is in place with no exit site erythema Laboratory Data Results from last 7 days Lab Units 04/10/25 0346 04/09/25 0418 04/08/25 0841 WBC 10*3/mm3 9.60 11.00* 10.07 HEMOGLOBIN g/dL 12.9* 13.0 14.0 HEMATOCRIT % 40.1 40.4 42.7 PLATELETS 10*3/mm3 227 211 118* Results from last 7 days Lab Units 04/10/25 0346 SODIUM mmol/L 137 POTASSIUM mmol/L 3.9 CHLORIDE mmol/L 102 CO2 mmol/L 26.9 BUN mg/dL 15.9 CREATININE mg/dL 0.77 GLUCOSE mg/dL 125* CALCIUM mg/dL 7.9* Results from last 7 days Lab Units 04/04/25 1447 ALK PHOS U/L 106 BILIRUBIN mg/dL 1.0 ALT (SGPT) U/L 26 AST (SGOT) U/L 25 Results from last 7 days Lab Units 04/04/25 1447 SED RATE mm/hr 51* Results from last 7 days Lab Units 04/04/25 1447 CRP mg/dL 8.57* Results from last 7 days Lab Units 04/05/25 1215 CK TOTAL U/L 140 Estimated Creatinine Clearance: 171.1 mL/min (by C-G formula based on SCr of 0.77 mg/dL). Microbiology: No results found for: ACANTHNAEG , AFBCX , BPERTUSSISCX , BLOODCX No results found for: BCIDPCR , CXREFLEX , CSFCX , CULTURETIS No results found for: CULTURES , HSVCX , URCX No results found for: EYECULTURE , GCCX , HSVCULTURE , LABHSV No results found for: LEGIONELLA , MRSACX , MUMPSCX , MYCOPLASCX No results found for: NOCARDIACX , STOOLCX No results found for: THROATCX , UNSTIMCULT , URINECX , CULTURE , VZVCULTUR No results found for: VIRALCULTU , WOUNDCX Radiology: Imaging Results (Last 72 Hours) Procedure Component Value Units Date/Time FL C Arm During Surgery [[id number]] Resulted: 04/07/252137 Updated: 04/07/252137 Narrative: This procedure was auto-finalized with no dictation required. MRI Tibia Fibula Right With & Without Contrast [[id number]] Collected: 04/07/25 0938 Updated: 04/07/25 1001 Narrative: MRI TIBIA FIBULA RIGHT W WO CONTRAST Date of Exam: 04/07/2025 8:15 AM EDT Indication: evaluate interval change, osteomyelitis vs fluid collection. Comparison: 04/04/2025 Technique: Routine multiplanar/multisequence images of the right tibia and fibula were obtained before and after the uneventful intravenous administration of Vueway. Findings: Status post below-knee amputation, as before. There is soft tissue edema with skin thickening and postcontrast enhancement, primarily along the anterior aspect of the remaining lower leg, as before. In the subcutaneous tissues at the anterior-lateral aspect of the lower leg, extending inferiorly from the level of the inferior patellar tendon to the level of the distal tibia (axial images 10-35),there are irregular small T2 fluid signal foci with peripheral enhancement. The small irregular focal area of hypoenhancement adjacent to the distal tibia seen previously on series 19 image 10 appears similar on series 12 image 6. There is a small amount of focal T2 fluid signal intensity in this location. No definite new marrow signal abnormality to indicate osteomyelitis. No visualized knee effusion. There is diffuse muscle atrophy and postsurgical changes in the soft tissues, as before. Impression: Impression: 1.Status post below-knee amputation with soft tissue edema, skin thickening, and enhancement of thelower leg, as before, which may represent cellulitis. 2.Small irregular fluid signal foci in the subcutaneous tissues at the anterior- lateral aspect of the lower leg, extending inferiorly from the level of the inferior patellar tendon to the level of the distal tibia, most notably near the distal tibia. These could represent small abscesses versus infectious phlegmon. Ultrasound could be performed to assess for collection for drainage or aspiration. 3.No definite findings of osteomyelitis at this time. Electronically Signed: Hugh Buenrostro 04/07/2025 9:58 AM EDT Workstation ID: [id number] Impression: Recurrent Right BKA stump abscess/cellulitis- this has occurred despite multiple prior surgical interventions and prolonged intravenous followed by oral antibiotic therapy. He will need another course of prolonged intravenous antibiotic therapy followed by possible indefinite oral antibiotic suppression. Right leg dermatitis-he has significant right posterior knee dermatitis which is improving on Lotrisone. 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 HTN HLD Mood disorder PLAN/RECOMMENDATIONS: 1. Intravenous daptomycin 2. Discharge on outpatient intravenous daptomycin 3. Infectious disease follow-up with Dr. Rubens Torres I discussed his complex situation with Dr. Rubens Torres -Dr. Torres will see him in infectious disease follow-up I discussed his disposition with the pharmacist at [facility] today. I will sign off Outpatient orders: 1. Outpatient intravenous antibiotic therapy: Daptomycin 800 mg IV daily to be supplied by [facility] 2. Home health to perform weekly PICC line dressing changes with a Biopatch or Tegaderm CHG gel dressing 3. CBC, CMP, ESR, CRP, and CPK weekly-forward results to Dr. Rubens Torres 4. Follow-up with Dr. Rubens Torres in the next 1-2 weeks 5. Home health orders to be forward to to Dr. Rubens Torres This visit included the following complex service elements: Complex medical decision-making associated with antimicrobial prescribing. In-depth chart review with high level synthesis for complex diagnoses. Managed infection treatment protocol associated with transitions of care for this complex patient. Carlton Mead MD 04/10/2025 07:38 EDT * Yaya Hamiltonn, [facility] - 04/10/2025 7:17 AM EDT Pharmacy to Dose Heparin Infusion Note Won Dennis is a 44 y.o. male receiving heparin infusion. Therapy for (VTE/Cardiac): VTE (Full anticoagulation for factor II mutation) Patient Weight: 134 kg Initial Bolus (Y/N): No Any Bolus (Y/N): Yes Signs or Symptoms of Bleeding: None currently VTE (PE/DVT) Initial rate: 18 units/kg/hr (Max 1,500 units/hr) Anti-Xa Bolus Dose Infusion Hold Time Infusion Rate Change (units/kg/hr) Repeat Anti-Xa < 0.11 50 units/kg (4000 units Max) None Increase by 4 units/kg/hr 6 hours 0.11 - 0.19 25 units/kg (2000 units Max) None Increase by 3 units/kg/hr 6 hours 0.2 - 0.29 0 None Increase by 2 units/kg/hr 6 hours 0.3 - 0.7 0 None No Change 6 hours (after 2 consecutive levels in range check qAM) 0.71 - 0.8 0 None Decrease by 1 units/kg/hr 6 hours 0.81 - 0.9 0 None Decrease by 2 units/kg/hr 6 hours 0.91 - 1 0 60 minutes Decrease by 3 units/kg/hr 6 hours >1 0 Hold After Anti-Xa less than 0.7 decrease previous rate by 4 units/kg/hr Every 2 hours until Anti-Xa less than 0.7 then when infusion restarts in 6 hours Results from last 7 days Lab Units 04/10/25 0346 04/09/25 0418 04/08/25 0841 04/05/25 0354 04/05/25 0018 INR -- -- -- -- 1.19* HEMOGLOBIN g/dL 12.9* 13.0 14.0 < > -- HEMATOCRIT % 40.1 40.4 42.7 < > -- PLATELETS 10*3/mm3 227 211 118* < > -- < > = values in this interval not displayed. Date Time Anti-Xa Current Rate (units/kg/hr) Bolus (units) Rate Change (units/kg/hr) New Rate (units/kg/hr) Repeat Anti-Xa Comments / Pump Check 04/05 0000 Pending New start -- +11 11 0600 RN Mary. 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 04/05 0500 0.30 11 -- -- 11 1200 DW RN 04/05 1215 0.17 11 1999 +3 14 2100 DW RN Pump checked 04/05 2043 0.38 14 -- -- 14 0300 Dw RN 04/06 0530 0.25 14 -- +2 16 1200 DW RN Mary 04/06 1236 0.24 16 -- +2 18 2000 DW RN Pump checked 04/06 1916 0.33 18 -- -- 18 0100 Dw RN 04/07 0215 0.38 18 -- -- 18 0800 DW RN 04/07 0910 0.30 18 -- -- 18 0600 04/08 DW RN; pump verified 04/08 0841 0.33 18 -- -- 18 TBD DW RN 04/08 1053 -- 18 -- -18 HELD TBD Procedure planned for today, follow for restart after procedure 04/080 -- -- -- +18 18 0400 Patient back on floor following procedure. RN to restart drip 04/09 0418 0.41 18 -- -- 18 1100 DW RN 04/09 1005 0.36 18 -- -- 18 0600 04/10 ALDEN RN; pump verified 04/10 0430 0.35 18 -- -- 18 0600 04/11 ALDEN RN, pump verified Larisa Hamilton RPH 04/10/2025 07:17 EDT * Jason Álvarez DO - 04/09/2025 2:42 PM EDT Images from the original note were not included. [facility] Medicine Services PROGRESS NOTE Patient Name: Won Dennis : 1980 Date of Admission: 04/04/2025 Primary Care Physician: Provider, No Known Subjective Subjective CC: Right BKA cellulitis HPI: Patient seen sitting at bedside in no acute distress. Reports he is feeling well today. No acute complaints or concerns today. Reports mild soreness of right BKA. Objective Objective Vital Signs: Temp: [97 ??F (36.1 ??C)-98.1 ??F (36.7 ??C)] 97.8 ??F (36.6 ??C) Heart Rate: [59-91] 65 Resp: [10-18] 18 BP: (110-144)/(66-89) 110/80 Flow (L/min) (Oxygen Therapy): [2-4] 2 Physical Exam Constitutional: General: He is not in acute distress. Cardiovascular: Rate and Rhythm: Normal rate. Pulses: Normal pulses. Pulmonary: Effort: Pulmonary effort is normal. No respiratory distress. Abdominal: General: There is no distension. Palpations: Abdomen is soft. Tenderness: There is no abdominal tenderness. There is no guarding or rebound. Musculoskeletal: Comments: Right BKA, drain in place Skin: General: Skin is warm. Neurological: Mental Status: He is alert and oriented to person, place, and time. Psychiatric: Mood and Affect: Mood normal. Behavior: Behavior normal. Results Reviewed: LAB RESULTS: Lab 04/09/25 0418 04/08/25 0841 04/07/25 0910 04/06/25 0341 04/05/25 0354 04/05/25 0018 04/04/25 1447 WBC 11.00* 10.07 8.63 10.86* 11.18* -- 12.72* HEMOGLOBIN 13.0 14.0 14.7 13.9 13.9 -- 15.3 HEMATOCRIT 40.4 42.7 44.8 43.7 42.4 -- 47.9 PLATELETS 211 118* 149 115* 160 -- 232 NEUTROS ABS 8.23* 8.57* 5.75 7.09* 8.23* -- 9.52* IMMATURE GRANS (ABS) 0.03 0.05 0.05 0.03 0.04 -- 0.03 LYMPHS ABS 1.69 0.94 1.77 2.23 1.56 -- 1.66 MONOS ABS 0.94* 0.46 0.85 1.28* 1.23* -- 1.43* EOS ABS 0.07 0.03 0.18 0.20 0.09 -- 0.05 MCV 86.0 85.2 85.7 86.0 84.8 -- 84.9 SED RATE -- -- -- -- -- -- 51* CRP -- -- -- -- -- -- 8.57* PROTIME -- -- -- -- -- 15.9* -- APTT -- -- -- -- 35.3* 33.6* -- Lab 04/09/25 0418 04/08/25 0841 04/07/25 0910 04/06/25 1916 04/06/25 0342 04/05/25 0354 SODIUM 135* 136 139 -- 138 136 POTASSIUM 4.2 4.6 4.2 4.0 3.6 3.9 CHLORIDE 100 102 105 -- 103 103 CO2 26.0 23.5 24.8 -- 24.2 24.0 ANION GAP 9.0 10.5 9.2 -- 10.8 9.0 BUN 23.0* 13.2 13.1 -- 12.8 17.3 CREATININE 1.15 0.69* 0.77 -- 0.80 0.92 EGFR 80.5 117.0 113.2 -- 111.9 105.2 GLUCOSE 147* 125* 112* -- 94 152* CALCIUM 8.2* 8.4* 8.6 -- 8.0* 7.8* Lab 04/04/25 1447 TOTAL PROTEIN 7.3 ALBUMIN 4.1 GLOBULIN 3.2 ALT (SGPT) 26 AST (SGOT) 25 BILIRUBIN 1.0 ALK PHOS 106 Lab 04/05/25 0018 PROTIME 15.9* INR 1.19* Brief Urine Lab Results None Microbiology Results Abnormal Procedure Component Value - Date/Time Wound Culture - Swab, Leg, Right [[id number]] (Abnormal) Collected: 04/07/252106 Lab Status: Preliminary result Specimen: Swab from Leg, Right Updated: 04/09/25902 Wound Culture Light growth (2+) Staphylococcus aureus, MRSA Comment: Methicillin resistant Staphylococcus aureus, Patient may be an isolation risk. Gram Stain Few (2+) WBCs seen No organisms seen FL C Arm During Surgery Result Date: 04/07/2025 This procedure was auto-finalized with no dictation required. I have personally reviewed the therapy plans: [] PT/OT/ ST Therapy Plans Current medications: Scheduled Meds:[Held by provider] apixaban, 5 mg, Oral, Q12H atorvastatin, 40 mg, Oral, Nightly budesonide-formoterol, 2 puff, Inhalation, BID - RT cefTRIAXone, 2,000 mg, Intravenous, Q24H clotrimazole-betamethasone, 1 Application, Topical, Q12H DAPTOmycin, 8 mg/kg (Adjusted), Intravenous, Q24H ethyl alcohol, 2 Swab, Nasal, Once ferrous sulfate, 325 mg, Oral, BID furosemide, 20 mg, Oral, Daily hydroCHLOROthiazide Oral, 12.5 mg, Oral, Daily oxybutynin XL, 10 mg, Oral, Nightly saccharomyces boulardii, 250 mg, Oral, BID sertraline, 100 mg, Oral, Nightly sodium chloride, 10 mL, Intravenous, Q12H sodium chloride, 10 mL, Intravenous, Q12H tamsulosin, 0.4 mg, Oral, Nightly [Held by provider] valsartan, 40 mg, Oral, Q24H Continuous Infusions:heparin, 18 Units/kg/hr, Last Rate: 18 Units/kg/hr (04/09/25 0614) Pharmacy to Dose Heparin, PRN Meds:. acetaminophen OR acetaminophen OR acetaminophen senna-docusate sodium AND polyethylene glycol AND bisacodyl AND bisacodyl Calcium Replacement - Follow Nurse / BPA Driven Protocol HYDROmorphone Magnesium Standard Dose Replacement - Follow Nurse / BPA Driven Protocol [COMPLETED] HYDROmorphone AND naloxone [COMPLETED] HYDROmorphone AND naloxone nitroglycerin ondansetron ODT Pharmacy to Dose Heparin Phosphorus Replacement - Follow Nurse / BPA Driven Protocol Potassium Replacement - Follow Nurse / BPA Driven Protocol [COMPLETED] Insert Peripheral IV AND sodium chloride sodium chloride sodium chloride sodium chloride sodium chloride sodium chloride Assessment & Plan Assessment & Plan Active Hospital Problems Diagnosis POA 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 Brief Hospital Course to date: Won Dennis is a 44 y.o. 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 MRI concerning for cellulitis. Orthopedic surgery and infectious disease consulted. Status post incision and drainage, debridement, wound VAC, and drain placement with orthopedic surgery on 04/07 and 04/08. Right BKA cellulitis -Patient presenting with 2 to 3 days of right BKA swelling, erythema and pain -MRI RLE revealing cellulitis, no obvious signs of OM or drainable fluid collection -Repeat MRI with small irregular fluid signal foci which may represent small abscess versus infectious phlegmon -Orthopedic surgery consulted, status post incision and drainage, debridement, and wound VAC assisted closure on 04/07. Repeat irrigation, debridement, and secondary closure on 04/08 with drain placement. Potential drain removal with orthopedic surgery tomorrow. Patient will need follow-up with orthopedic surgery in 2 weeks. -Infectious disease consulted, continue daptomycin and ceftriaxone. PICC line placed on 04/09. -PT/OT = home. Patients' mobility limitations impair their ability to participate in activities such as toileting, feeding, dressing, grooming, and bathing. Mobility limitations cannot be resolved bya cane or walker. The patient is able to safely use a manual wheelchair, and he will also have a caregiver in the home as well to help assist with the patient maneuvering. Factor II deficiency -Holding Eliquis for now. Continue heparin drip for now. Transition back to Eliquis prior to discharge. HTN HLD -Continue HCTZ 12.5 mg, lasix 20mg. Hold Valsartan 40 mg for now. -Continue statin Mood disorder -Continue Sertraline BPH -Continue home medications Expected Discharge Location and Transportation: Home Expected Discharge Expected discharge date/ time has not been documented. VTE Prophylaxis: Pharmacologic & mechanical VTE prophylaxis orders are present. AM-PAC 6 Clicks Score (PT): 17 (04/09/25 1006) CODE STATUS: Code Status and Medical Interventions: CPR (Attempt to Resuscitate); Full Support Ordered at: 04/04/252047 Code Status (Patient has no pulse and is not breathing): CPR (Attempt to Resuscitate) Medical Interventions (Patient has pulse or is breathing): Full Support Level Of Support Discussed With: Patient Jason DO Preeti 04/09/25 * Larisa Hamilton [facility] - 04/09/2025 11:36 AM EDT Pharmacy to Dose Heparin Infusion Note Won Dennis is a 44 y.o. male receiving heparin infusion. Therapy for (VTE/Cardiac): VTE (Full anticoagulation for factor II mutation) Patient Weight: 134 kg Initial Bolus (Y/N): No Any Bolus (Y/N): Yes Signs or Symptoms of Bleeding: None currently VTE (PE/DVT) Initial rate: 18 units/kg/hr (Max 1,500 units/hr) Anti-Xa Bolus Dose Infusion Hold Time Infusion Rate Change (units/kg/hr) Repeat Anti-Xa < 0.11 50 units/kg (4000 units Max) None Increase by 4 units/kg/hr 6 hours 0.11 - 0.19 25 units/kg (2000 units Max) None Increase by 3 units/kg/hr 6 hours 0.2 - 0.29 0 None Increase by 2 units/kg/hr 6 hours 0.3 - 0.7 0 None No Change 6 hours (after 2 consecutive levels in range check qAM) 0.71 - 0.8 0 None Decrease by 1 units/kg/hr 6 hours 0.81 - 0.9 0 None Decrease by 2 units/kg/hr 6 hours 0.91 - 1 0 60 minutes Decrease by 3 units/kg/hr 6 hours >1 0 Hold After Anti-Xa less than 0.7 decrease previous rate by 4 units/kg/hr Every 2 hours until Anti-Xa less than 0.7 then when infusion restarts in 6 hours Results from last 7 days Lab Units 04/09/25 0418 04/08/25 0841 04/07/25 0910 04/05/25 0354 04/05/25 0018 INR -- -- -- -- 1.19* HEMOGLOBIN g/dL 13.0 14.0 14.7 < > -- HEMATOCRIT % 40.4 42.7 44.8 < > -- PLATELETS 10*3/mm3 211 118* 149 < > -- < > = values in this interval not displayed. Date Time Anti-Xa Current Rate (units/kg/hr) Bolus (units) Rate Change (units/kg/hr) New Rate (units/kg/hr) Repeat Anti-Xa Comments / Pump Check 04/05 0000 Pending New start -- +11 11 0600 RN Mary. 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 04/05 0500 0.30 11 -- -- 11 1200 DW RN 04/05 1215 0.17 11 1999 +3 14 2100 DW RN Pump checked 04/05 2043 0.38 14 -- -- 14 0300 Dw RN 04/06 0530 0.25 14 -- +2 16 1200 ALDEN RN Mary 04/06 1236 0.24 16 -- +2 18 2000 DW RN Pump checked 04/06 1916 0.33 18 -- -- 18 0100 Dw RN 04/07 0215 0.38 18 -- -- 18 0800 DW RN 04/07 0910 0.30 18 -- -- 18 0600 04/08 ALDEN RN; pump verified 04/08 0841 0.33 18 -- -- 18 TBD ALDEN RN 04/08 1053 -- 18 -- -18 HELD TBD Procedure planned for today, follow for restart after procedure 04/08 2130 -- -- -- +18 18 0400 Patient back on floor following procedure. DW RN to restart drip 04/09 0418 0.41 18 -- -- 18 1100 ALDEN RN 04/09 1005 0.36 18 -- -- 18 0600 10 ALDEN RN; pump verified Larisa Hamilton RPH 04/09/2025 11:35 EDT * Cherri Bonner PA - 04/09/2025 9:18 AM EDT Images from the original note were not included. Won Dennis LOS: 5 days Patient Care Team: Provider, No Known as PCP - General Chief Complaint: Right below-knee amputation cellulitis Subjective Interval History: Resting comfortably bed this morning. Pain tolerable, no acute events overnight. Review of Systems: Gen-complains of subjective fevers CV- No chest pain, palpitations Resp- No cough, dyspnea GI- No N/V/D, abd pain Objective Vital Signs Vital Signs (last 24 hours) 04/05 0700 04/06 0659 04/06 0704/06 1233 Most Recent Temp (??F) 98.5 - 100.9 98.8 98.8 (37.1) 04/06 0858 Heart Rate 60 - 100 87 87 04/06 0858 Resp 16 - 18 18 18 04/06 0858 BP 110/62 - 122/75 120/69 120/69 04/06 0858 SpO2 (%) 88 - 94 90 04/06 0420 Physical Exam: Alert, oriented. No acute distress. Nonlabored respirations. Regular rate and rhythm. Abdomen nondistended. Right lower extremity: Operative dressing in place is clean, dry, intact. Drain with approximately 10cc serosanguineous output. Results Review: I reviewed the patient's new clinical results. Medication Review: Hospital Medications (active) Dose Frequency Start End acetaminophen (TYLENOL) 160 MG/5ML oral solution 500 mg 500 mg Every 6 Hours PRN 04/04/2025 -- Admin Instructions: If given for fever, use fever parameter: fever greater than 100.4 ??F Based on patient request - if ordered for moderate or severe pain, provider allows for administration of a medication prescribed for a lower pain scale. Do not exceed 4 grams of acetaminophen in a 24 hr period. Max dose of 2gm for AST/ALT greater than 120 units/L. If given for pain, use the following pain scale: Mild Pain = Pain Score of 1-3, CPOT 1-2 Moderate Pain = Pain Score of 4-6, CPOT 3-4 Severe Pain = Pain Score of 7-10, CPOT 5-8 Route: Oral Linked Group 1: Placed in Or Linked Group acetaminophen (TYLENOL) suppository 325 mg 325 mg Every 6 Hours PRN 04/04/2025 -- Admin Instructions: If given for fever, use fever parameter: fever greater than 100.4 ??F Based on patient request - if ordered for moderate or severe pain, provider allows for administration of a medication prescribed for a lower pain scale. Do not exceed 4 grams of acetaminophen in a 24 hr period. Max dose of 2gm for AST/ALT greater than 120 units/L. If given for pain, use the following pain scale: Mild Pain = Pain Score of 1-3, CPOT 1-2 Moderate Pain = Pain Score of 4-6, CPOT 3-4 Severe Pain = Pain Score of 7-10, CPOT 5-8 Route: Rectal Linked Group 1: Placed in Or Linked Group acetaminophen (TYLENOL) tablet 500 mg 500 mg Every 6 Hours PRN 04/04/2025 -- Admin Instructions: If given for fever, use fever parameter: fever greater than 100.4 ??F Based on patient request - if ordered for moderate or severe pain, provider allows for administration of a medication prescribed for a lower pain scale. Do not exceed 4 grams of acetaminophen in a 24 hr period. Max dose of 2gm for AST/ALT greater than 120 units/L. If given for pain, use the following pain scale: Mild Pain = Pain Score of 1-3, CPOT 1-2 Moderate Pain = Pain Score of 4-6, CPOT 3-4 Severe Pain = Pain Score of 7-10, CPOT 5-8 Route: Oral Linked Group 1: Placed in Or Linked Group atorvastatin (LIPITOR) tablet 40 mg 40 mg Nightly 04/04/2025 -- Admin Instructions: Avoid grapefruit juice. Route: Oral bisacodyl (DULCOLAX) EC tablet 5 mg 5 mg Daily PRN 04/04/2025 -- Admin Instructions: Use if no bowel movement after 12 hours. Swallow whole. Do not crush, split, or chew tablet. Route: Oral Linked Group 2: Placed in And Linked Group bisacodyl (DULCOLAX) suppository 10 mg 10 mg Daily PRN 04/04/2025 -- Admin Instructions: Use if no bowel movement after 12 hours. Hold for diarrhea Route: Rectal Linked Group 2: Placed in And Linked Group Calcium Replacement - Follow Nurse / BPA Driven Protocol As Needed 04/04/2025 -- Admin Instructions: Open Order & Select [facility] Electrolyte Replacement Protocol Algorithm to View Details Route: Not Applicable cefTRIAXone (ROCEPHIN) 2,000 mg in sodium chloride 0.9 % 100 mL MBP 2,000 mg Every 24 Hours 04/05/2025 04/16/2025 Admin Instructions: LR should be paused and flushing of the line with NS is recommended prior to and after completion of ceftriaxone infusion due to incompatibility. Do not co-adminster with calcium-containing solutions. Caution: Look alike/sound alike drug alert Route: Intravenous clotrimazole-betamethasone (LOTRISONE) 1-0.05 % cream 1 Application 1 Application Every 12 Hours Scheduled 04/05/2025 04/12/2025 Admin Instructions: Apply to posterior thigh to rash. Route: Topical DAPTOmycin (CUBICIN) 800 mg in sodium chloride 0.9 % 50 mL IVPB 8 mg/kg ?? 98.8 kg (Adjusted) Every24 Hours 04/06/2025 04/16/2025 Admin Instructions: Caution: Look alike/sound alike drug alert. Refrigerate. Do not shake. Route: Intravenous ferrous sulfate tablet 325 mg 325 mg 2 Times Daily 04/04/2025 -- Admin Instructions: Swallow whole. Do not crush, split, or chew. Take with food if GI upset occurs. Route: Oral furosemide (LASIX) tablet 20 mg 20 mg Daily 04/05/2025 -- Route: Oral heparin 34283 units/250 mL (100 units/mL) in 0.45 % NaCl infusion 16 Units/kg/hr ?? 134 kg Titrated04/05/2025 -- Admin Instructions: Pharmacy dosing - VTE (PE/DVT) - Boluses (No initial bolus) Route: Intravenous hydroCHLOROthiazide tablet 12.5 mg 12.5 mg Daily 04/05/2025 -- Admin Instructions: Caution: Look alike/sound alike drug alert Route: Oral HYDROmorphone (DILAUDID) injection 0.5 mg 0.5 mg Every 2 Hours PRN 04/04/2025 04/09/2025 Admin Instructions: Based on patient request - if ordered for moderate or severe pain, provider allows for administration of a medication prescribed for a lower pain scale. If given for pain, use the following pain scale: Mild Pain = Pain Score of 1-3, CPOT 1-2 Moderate Pain = Pain Score of 4-6, CPOT 3-4 Severe Pain = Pain Score of 7-10, CPOT 5-8 Route: Intravenous Magnesium Standard Dose Replacement - Follow Nurse / BPA Driven Protocol As Needed 04/04/2025 -- Admin Instructions: Open Order & Select [facility] Electrolyte Replacement Protocol Algorithm to View Details Route: Not Applicable nitroglycerin (NITROSTAT) SL tablet 0.4 mg 0.4 mg Every 5 Minutes PRN 04/04/2025 -- Admin Instructions: If Pain Unrelieved After 3 Doses Notify MD May administer up to 3 doses per episode. Hold if SBP less than 100. Route: Sublingual ondansetron ODT (ZOFRAN-ODT) disintegrating tablet 4 mg 4 mg Every 6 Hours PRN 04/06/2025 -- Admin Instructions: If multiple N/V medications ordered, use in the following order: Ondansetron, Prochlorperazine, Promethazine. Use PO unless patient refuses or patient unable to swallow. Place on tongue and allow to dissolve. Route: Translingual oxybutynin XL (DITROPAN-XL) 24 hr tablet 10 mg 10 mg Nightly 04/04/2025 -- Admin Instructions: Do not crush or chew the capsules or tablets. The drug may not work as designedif the capsule or tablet is crushed or chewed. Swallow whole. Route: Oral Pharmacy to Dose Heparin Continuous PRN 04/04/2025 -- Route: Not Applicable Phosphorus Replacement - Follow Nurse / BPA Driven Protocol As Needed 04/04/2025 -- Admin Instructions: Open Order & Select [facility] Electrolyte Replacement Protocol Algorithm to View Details Route: Not Applicable polyethylene glycol (MIRALAX) packet 17 g 17 g Daily PRN 04/04/2025 -- Admin Instructions: Use if no bowel movement after 12 hours. Mix in 6-8 ounces of water. Use 4-8 ounces of water, tea, or juice for each 17 gram dose. Route: Oral Linked Group 2: Placed in And Linked Group potassium chloride (KLOR-CON M20) CR tablet 40 mEq 40 mEq Every 4 Hours 04/06/2025 04/06/2025 Admin Instructions: Do not crush or chew the capsules or tablets. The drug may not work as designedif the capsule or tablet is crushed or chewed. Swallow whole. Take with food. Route: Oral Potassium Replacement - Follow Nurse / BPA Driven Protocol As Needed 04/04/2025 -- Admin Instructions: Open Order & Select [facility] Electrolyte Replacement Protocol Algorithm to View Details Route: Not Applicable saccharomyces boulardii (FLORASTOR) capsule 250 mg 250 mg 2 Times Daily 04/04/2025 -- Route: Oral sennosides-docusate (PERICOLACE) 8.6-50 MG per tablet 2 tablet 2 tablet 2 Times Daily PRN 04/04/2025-- Admin Instructions: Start bowel management regimen if patient has not had a bowel movement after 12hours. Route: Oral Linked Group 2: Placed in And Linked Group sertraline (ZOLOFT) tablet 100 mg 100 mg Nightly 04/04/2025 -- Route: Oral sodium chloride 0.9 % flush 10 mL 10 mL As Needed 04/04/2025 -- Route: Intravenous Linked Group 3: Placed in And Linked Group sodium chloride 0.9 % flush 10 mL 10 mL Every 12 Hours Scheduled 04/04/2025 -- Route: Intravenous sodium chloride 0.9 % flush 10 mL 10 mL As Needed 04/04/2025 -- Route: Intravenous sodium chloride 0.9 % infusion 40 mL 40 mL As Needed 04/04/2025 -- Admin Instructions: Following administration of an IV intermittent medication, flush line with 40mLNS at 100mL/hr. Route: Intravenous tamsulosin (FLOMAX) 24 hr capsule 0.4 mg 0.4 mg Nightly 04/04/2025 -- Admin Instructions: Do not crush or chew the capsules or tablets. The drug may not work as designedif the capsule or tablet is crushed or chewed. Swallow whole. If patient unable to swallow whole, contact pharmacy for alternative. Route: Oral valsartan (DIOVAN) tablet 40 mg 40 mg Every 24 Hours Scheduled 04/05/2025 -- Admin Instructions: Hold for SBP less than 100, DBP less than 60, or heart rate less than 50. If a dose is held, please contact the provider. Route: Oral Assessment & Plan 44-year-old male status post right below-knee amputation, history of MRSA osteomyelitis, with rightbelow-knee amputation stump cellulitis, concern for developing abscess now status post right lower extremity irrigation, debridement, wound vacuum-assisted closure 04/07/2025 followed by repeat right l ower extremity irrigation, debridement, secondary closure 04/08/25. Right BKA infection Nonweightbearing right lower extremity Follow cultures Antibiotic management per infectious disease; appreciate their recommendations Plan to leave drain in place until less than 30 cc of output per shift, anticipate drain removal tomorrow To begin postoperative day 3, daily dressing changes: Xeroform, 4 x 4, Kerlix, Shaquille Follow-up in 2 weeks for incision check, radiographs [facility] [address], [address] [facility], [address] Please schedule at [phone] VONDA Garcia 04/09/25 09:18 EDT Cosigned by Sushil Dean Jr., MD at 04/19/2025 10:33 AM EDT Associated attestation - Sushil Dean Jr., MD - 04/19/2025 10:33 AM EDT I have reviewed this documentation and agree. * Carlton Mead MD - 04/09/2025 8:25 AM EDT Images from the original note were not included. INFECTIOUS DISEASE Progress Note Won Dennis 1980 [id number] Date of Consult: 04/09/2025 Admission Date: 04/04/2025 Requesting Provider: Evaluating Physician: Dr. Mable Mead MD. 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 He c/o swelling with erythema for several days after a new prosthesis was fitted, which prompted him to seek treatment at [facility]. He is known to Dr. Dean. He denies recent antibiotics. He has an intolerance to keflex, he became severely nauseated with infusion. MRI completed yesterday demonstrates area of hypoatttenuation with small area of phlegmonous change. No osteomyelitis. No knee joint effusion. Denies n/v, or fever. No other symptoms. WBC count 12.7 on admission with sed rate of 51, CRP 8.57. Creatinine normal. No cultures obtained here. Known MRSA from previous wound 05/09/25. HDS, on Heparin gtt. Currently [facility] has been asked to manage the antimicrobials in this patient. 04/06/25: WBC count downtrending. Mild fever 99.2, with TMAX 100..9. The leg looks less erythematous, no pain to examination. 04/07/2025: His maximum temperature over the last 24 hours is 100.4. He has decreased right BKA stump pain. The rash over his popliteal fossa is markedly improved. His distal BKA stump erythema is markedly better. A follow-up MRI scan reveals small irregular fluid signal foci in the anterior lateralaspect of the BKA stump. 04/08/2025: he has remained afebrile. He underwent right BKA stump debridement last evening. Operative cultures are pending. White blood cell count yesterday was 8.6. he underwent repeat right BKA stump debridement today. 04/09/25: He has remained afebrile. Right BKA stump fluid from 04/07 is no growth so far. Cultures from 04/08 are also no growth so far. Later today is operative cultures from 04/07 turned positive for MRSA. Past Medical History: Diagnosis Date Amputation finger Anxiety and depression Asthma Bone spur of right foot CHF (congestive heart failure) Hx of right BKA 2022 Hyperlipidemia Hypertension MRSA (methicillin resistant Staphylococcus aureus) infection 05/09/2023 Right leg wound culture Osteomyelitis PE (pulmonary thromboembolism) Prostate enlargement Sleep apnea Past Surgical History: Procedure Laterality Date AMPUTATION Left left hand, index finger amputated past the first knuckle ANKLE TENDON REPAIR Left BACK SURGERY BELOW KNEE LEG AMPUTATION Right 2022 CARDIAC CATHETERIZATION LEG DEBRIDEMENT Right 04/07/2025 Procedure: LEG DEBRIDEMENT, IRRIGATION; Surgeon: Sushil Dean Jr., MD; Location: [facility] OR; Service: Orthopedics; Laterality: Right; PLACEMENT OF WOUND VAC Right 04/07/2025 Procedure: WOUND VACUUM ASSISTED CLOSURE; Surgeon: Sushil Dean Jr., MD; Location: [facility] OR; Service: Orthopedics; Laterality: Right; History reviewed. No pertinent family history. Social History Socioeconomic History Marital status: Unknown Tobacco Use Smoking status: Never Smokeless tobacco: Never Vaping Use Vaping status: Never Used Substance and Sexual Activity Alcohol use: Not Currently Drug use: Never Sexual activity: Defer Allergies Allergen Reactions Ceftin [Cefuroxime] Nausea And Vomiting Keflex [Cephalexin] Nausea And Vomiting Latex Rash Medication: Current Facility-Administered Medications: !Heparin drip on hold for procedure today, please contact pharmacy after procedure for restart, , Not Applicable, BID, Sushil Dean Jr., MD, Given at 04/08/25 1146 acetaminophen (TYLENOL) tablet 500 mg, 500 mg, Oral, Q6H PRN, 500 mg at 04/08/252006 OR acetaminophen (TYLENOL) 160 MG/5ML oral solution 500 mg, 500 mg, Oral, Q6H PRN, 500 mg at 04/06/25 0036 OR acetaminophen (TYLENOL) suppository 325 mg, 325 mg, Rectal, Q6H PRN, Sushil Dean Jr., MD [Held by provider] apixaban (ELIQUIS) tablet 5 mg, 5 mg, Oral, Q12H, Sushil Dean Jr., MD atorvastatin (LIPITOR) tablet 40 mg, 40 mg, Oral, Nightly, Sushil Dean Jr., MD, 40 mg at 04/08/252006 sennosides-docusate (PERICOLACE) 8.6-50 MG per tablet 2 tablet, 2 tablet, Oral, BID PRN AND polyethylene glycol (MIRALAX) packet 17 g, 17 g, Oral, Daily PRN AND bisacodyl (DULCOLAX) EC tablet5 mg, 5 mg, Oral, Daily PRN AND bisacodyl (DULCOLAX) suppository 10 mg, 10 mg, Rectal, Daily PRN, Sushil Dean Jr., MD budesonide-formoterol (SYMBICORT) 160-4.5 MCG/ACT inhaler 2 puff, 2 puff, Inhalation, BID - RT, Sushil Dean Jr., MD, 2 puff at 04/08/25 0923 Calcium Replacement - Follow Nurse / BPA Driven Protocol, , Not Applicable, PRN, Sushil Dean Jr., MD cefTRIAXone (ROCEPHIN) 2,000 mg in sodium chloride 0.9 % 100 mL MBP, 2,000 mg, Intravenous, Q24H, Sushil Dean Jr., MD, Last Rate: 200 mL/hr at 04/08/252006, 2,000 mg at 04/08/252006 clotrimazole-betamethasone (LOTRISONE) 1-0.05 % cream 1 Application, 1 Application, Topical, Q12H, Sushil Dean Jr., MD, 1 Application at 04/08/252007 DAPTOmycin (CUBICIN) 800 mg in sodium chloride 0.9 % 50 mL IVPB, 8 mg/kg (Adjusted), Intravenous, Q24H, Sushil Dean Jr., MD, Last Rate: 100 mL/hr at 04/08/25 1125, 800 mg at 04/08/25 1125 ethyl alcohol 62 % 2 each, 2 Swab, Nasal, Once, Sushil Dean Jr., MD ferrous sulfate tablet 325 mg, 325 mg, Oral, BID, Sushil Dean Jr., MD, 325 mg at 04/08/252006 furosemide (LASIX) tablet 20 mg, 20 mg, Oral, Daily, Sushil Dean Jr., MD, 20 mg at 04/08/25 0800 heparin 17764 units/250 mL (100 units/mL) in 0.45 % NaCl infusion, 18 Units/kg/hr, Intravenous, Titrated, Una Perla, PharmD, Last Rate: 24.1 mL/hr at 04/09/25 0614, 18 Units/kg/hr at 04/09/25 06 hydroCHLOROthiazide tablet 12.5 mg, 12.5 mg, Oral, Daily, Sushil Dean Jr., MD, 12.5 mg at 04/08/25 0801 HYDROmorphone (DILAUDID) injection 0.5 mg, 0.5 mg, Intravenous, Q2H PRN, Sushil Dean Jr., MD,0.5 mg at 04/09/25 0614 Magnesium Standard Dose Replacement - Follow Nurse / BPA Driven Protocol, , Not Applicable, PRN, Sushil Dean Jr., MD [COMPLETED] HYDROmorphone (DILAUDID) injection 1 mg, 1 mg, Intravenous, Q15 Min PRN, 1 mg at 04/08/25 1648 AND naloxone (NARCAN) injection 0.4 mg, 0.4 mg, Intravenous, Q5 Min PRN, Benito Dean Jr., MD [COMPLETED] HYDROmorphone (DILAUDID) injection 1 mg, 1 mg, Intravenous, Q15 Min PRN, 1 mg at 04/08/25 1739 AND naloxone (NARCAN) injection 0.4 mg, 0.4 mg, Intravenous, Q5 Min PRN, Benito Dean Jr., MD nitroglycerin (NITROSTAT) SL tablet 0.4 mg, 0.4 mg, Sublingual, Q5 Min PRN, Sushil Dean Jr., MD ondansetron ODT (ZOFRAN-ODT) disintegrating tablet 4 mg, 4 mg, Translingual, Q6H PRN, Sushil Dean Jr., MD, 4 mg at 04/06/251001 oxybutynin XL (DITROPAN-XL) 24 hr tablet 10 mg, 10 mg, Oral, Nightly, Sushil Dean Jr., MD, 10mg at 04/08/252006 Pharmacy to Dose Heparin, , Not Applicable, Continuous PRN, Sushil Dean Jr., MD Phosphorus Replacement - Follow Nurse / BPA Driven Protocol, , Not Applicable, PRN, Benito Dean Jr., MD Potassium Replacement - Follow Nurse / BPA Driven Protocol, , Not Applicable, PRN, Sushil Dean Jr., MD saccharomyces boulardii (FLORASTOR) capsule 250 mg, 250 mg, Oral, BID, Sushil Dean Jr., MD, 250 mg at 04/08/252006 sertraline (ZOLOFT) tablet 100 mg, 100 mg, Oral, Nightly, Sushil Dean Jr., MD, 100 mg at 04/08/252006 [COMPLETED] Insert Peripheral IV, , , Once AND sodium chloride 0.9 % flush 10 mL, 10 mL, Intravenous, PRN, Sushil Dean Jr., MD sodium chloride 0.9 % flush 10 mL, 10 mL, Intravenous, Q12H, Sushil Dean Jr., MD, 10 mL at 04/08/252007 sodium chloride 0.9 % flush 10 mL, 10 mL, Intravenous, PRN, Sushil Dean Jr., MD sodium chloride 0.9 % infusion 40 mL, 40 mL, Intravenous, PRN, Sushil Dean Jr., MD tamsulosin (FLOMAX) 24 hr capsule 0.4 mg, 0.4 mg, Oral, Nightly, Sushil Dean Jr., MD, 0.4 mg at 04/08/252006 [Held by provider] valsartan (DIOVAN) tablet 40 mg, 40 mg, Oral, Q24H, Sushil Dean Jr., MD, 40 mg at 04/08/25 0800 Antibiotics: Anti-Infectives (From admission, onward) Ordered Dose/Rate Route Frequency Start Stop 04/08/25 1600 vancomycin (VANCOCIN) powder Status: Discontinued Ordering Provider: Sushil Dean Jr., MD As Needed 04/08/25 1555 04/08/25 1637 04/08/25 1354 vancomycin IVPB 2000 mg in 0.9% Sodium Chloride 500 mL Status: Discontinued Ordering Provider: Sushil Dean Jr., MD 15 mg/kg ?? 134 kg 250 mL/hr over 120 Minutes Intravenous Once 04/08/25 1356 04/08/25 1411 04/07/25 1644 vancomycin IVPB 2000 mg in 0.9% Sodium Chloride 500 mL Ordering Provider: Sushil Dean Jr., MD 15 mg/kg ?? 134 kg 250 mL/hr over 120 Minutes Intravenous Once 04/07/25 1646 04/07/25 2036 04/06/25 0815 DAPTOmycin (CUBICIN) 800 mg in sodium chloride 0.9 % 50 mL IVPB Ordering Provider: Sushil Dean Jr., MD 8 mg/kg ?? 98.8 kg (Adjusted) 100 mL/hr over 30 Minutes Intravenous Every 24 Hours 04/06/25 1000 04/16/25 0959 04/04/252005 cefTRIAXone (ROCEPHIN) 2,000 mg in sodium chloride 0.9 % 100 mL MBP Ordering Provider: Sushil Dean Jr., MD 2,000 mg 200 mL/hr over 30 Minutes Intravenous Every 24 Hours 04/05/25 2000 04/16/25 0814 04/05/25 1207 DAPTOmycin (CUBICIN) 800 mg in sodium chloride 0.9 % 50 mL IVPB Ordering Provider: Carlton Mead MD 8 mg/kg ?? 98.8 kg (Adjusted) 100 mL/hr over 30 Minutes Intravenous Every 24 Hours 04/05/25 1300 04/05/25 1427 04/05/25 0031 vancomycin IVPB 1500 mg in 0.9% NaCl (Premix) 500 mL Status: Discontinued Ordering Provider: Una Perla, PharmD 1,500 mg 333.3 mL/hr over 90 Minutes Intravenous Every 12 Hours 04/05/2579904/05/25120604/04/252004 Pharmacy to dose vancomycin Status: Discontinued Ordering Provider: Leonora Shepherd MD Not Applicable Continuous PRN 04/04/25200404/05/25120604/04/251942 vancomycin 2750 mg/500 mL 0.9% NS IVPB ([facility]) Ordering Provider: Mario Crowley, DO 20 mg/kg ?? 134 kg over 165 Minutes Intravenous Once 04/04/25195804/04/25230604/04/251942 cefTRIAXone (ROCEPHIN) 2,000 mg in sodium chloride 0.9 % 100 mL MBP Ordering Provider: Leonora Shepherd MD 2,000 mg 200 mL/hr over 30 Minutes Intravenous Once 04/04/25195804/05/25 0012 Review of Systems: See HPI Physical Exam: Vital Signs Temp (24hrs), Av.7 ??F (36.5 ??C), Min:97 ??F (36.1 ??C), Max:98.1 ??F (36.7 ??C) Temp Min: 97 ??F (36.1 ??C) Max: 98.1 ??F (36.7 ??C) BP Min: 103/59 Max: 144/77 Pulse Min: 54 Max: 91 Resp Min: 10 Max: 18 SpO2 Min: 90 % Max: 98 % GENERAL: Awake and alert, in moderate distress, pulling covers off c/o feeling hot HEENT: Normocephalic, atraumatic. PERRL. EOMI. No conjunctival injection. No icterus. NECK: Supple . HEART: RRR; No murmur, rubs, gallops. LUNGS: Coarse auscultation bilaterally without wheezing, rales, rhonchi. Normal respiratory effort.Nonlabored. ABDOMEN: Soft, nontender, nondistended. No rebound or guarding. NO mass or HSM. EXT: . Right BKA stump is dressed.. : Without Shoemaker catheter. MSK: No joint effusions or erythema SKIN: No diffuse rash. NEURO: Oriented to PPT. Motor 5/5 strength PSYCHIATRIC: Normal insight and judgment. Cooperative with PE Laboratory Data Results from last 7 days Lab Units 04/09/25 0418 04/08/25 0841 04/07/25 0910 WBC 10*3/mm3 11.00* 10.07 8.63 HEMOGLOBIN g/dL 13.0 14.0 14.7 HEMATOCRIT % 40.4 42.7 44.8 PLATELETS 10*3/mm3 211 118* 149 Results from last 7 days Lab Units 04/09/25 0418 SODIUM mmol/L 135* POTASSIUM mmol/L 4.2 CHLORIDE mmol/L 100 CO2 mmol/L 26.0 BUN mg/dL 23.0* CREATININE mg/dL 1.15 GLUCOSE mg/dL 147* CALCIUM mg/dL 8.2* Results from last 7 days Lab Units 04/04/25 1447 ALK PHOS U/L 106 BILIRUBIN mg/dL 1.0 ALT (SGPT) U/L 26 AST (SGOT) U/L 25 Results from last 7 days Lab Units 04/04/25 1447 SED RATE mm/hr 51* Results from last 7 days Lab Units 04/04/25 1447 CRP mg/dL 8.57* Results from last 7 days Lab Units 04/05/25 1215 CK TOTAL U/L 140 Estimated Creatinine Clearance: 114.6 mL/min (by C-G formula based on SCr of 1.15 mg/dL). Microbiology: No results found for: ACANTHNAEG , AFBCX , BPERTUSSISCX , BLOODCX No results found for: BCIDPCR , CXREFLEX , CSFCX , CULTURETIS No results found for: CULTURES , HSVCX , URCX No results found for: EYECULTURE , GCCX , HSVCULTURE , LABHSV No results found for: LEGIONELLA , MRSACX , MUMPSCX , MYCOPLASCX No results found for: NOCARDIACX , STOOLCX No results found for: THROATCX , UNSTIMCULT , URINECX , CULTURE , VZVCULTUR No results found for: VIRALCULTU , WOUNDCX Radiology: Imaging Results (Last 72 Hours) Procedure Component Value Units Date/Time FL C Arm During Surgery [[id number]] Resulted: 04/07/252137 Updated: 04/07/252137 Narrative: This procedure was auto-finalized with no dictation required. MRI Tibia Fibula Right With & Without Contrast [[id number]] Collected: 04/07/2538 Updated: 04/07/25 1001 Narrative: MRI TIBIA FIBULA RIGHT W WO CONTRAST Date of Exam: 04/07/2025 8:15 AM EDT Indication: evaluate interval change, osteomyelitis vs fluid collection. Comparison: 04/04/2025 Technique: Routine multiplanar/multisequence images of the right tibia and fibula were obtained before and after the uneventful intravenous administration of Vueway. Findings: Status post below-knee amputation, as before. There is soft tissue edema with skin thickening and postcontrast enhancement, primarily along the anterior aspect of the remaining lower leg, as before. In the subcutaneous tissues at the anterior-lateral aspect of the lower leg, extending inferiorly from the level of the inferior patellar tendon to the level of the distal tibia (axial images 10-35),there are irregular small T2 fluid signal foci with peripheral enhancement. The small irregular focal area of hypoenhancement adjacent to the distal tibia seen previously on series 19 image 10 appears similar on series 12 image 6. There is a small amount of focal T2 fluid signal intensity in this location. No definite new marrow signal abnormality to indicate osteomyelitis. No visualized knee effusion. There is diffuse muscle atrophy and postsurgical changes in the soft tissues, as before. Impression: Impression: 1.Status post below-knee amputation with soft tissue edema, skin thickening, and enhancement of thelower leg, as before, which may represent cellulitis. 2.Small irregular fluid signal foci in the subcutaneous tissues at the anterior- lateral aspect of the lower leg, extending inferiorly from the level of the inferior patellar tendon to the level of the distal tibia, most notably near the distal tibia. These could represent small abscesses versus infectious phlegmon. Ultrasound could be performed to assess for collection for drainage or aspiration. 3.No definite findings of osteomyelitis at this time. Electronically Signed: Hugh Buenrostro 04/07/2025 9:58 AM EDT Workstation ID: [id number] Impression: Recurrent Right BKA stump abscess/cellulitis- this has occurred despite multiple prior surgical interventions and prolonged intravenous followed by oral antibiotic therapy. He will need another course of prolonged intravenous antibiotic therapy followed by possible indefinite oral antibiotic suppression. Right leg dermatitis-he has significant right posterior knee dermatitis which is improving on Lotrisone. 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 HTN HLD Mood disorder PLAN/RECOMMENDATIONS: 1. Intravenous daptomycin 2. Stop ceftriaxone 3. PICC line placement 4. Discharge tomorrow on outpatient intravenous daptomycin 5. Infectious disease follow-up with Dr. Rubens Torres I discussed his complex situation in detail with Dr. Dean today. I discussed his complex situation and ongoing therapy with the patient himself today. I discussed his complex situation with Dr. Rubens Torres today-Dr. Torres will see him in infectious disease follow-up Outpatient orders: 1. Outpatient intravenous antibiotic therapy: Daptomycin 800 mg IV daily to be supplied by [facility] home infusion 2. Home health to perform weekly PICC line dressing changes with a Biopatch or Tegaderm CHG gel dressing 3. CBC, CMP, ESR, CRP, and CPK weekly-forward results to Dr. Rubens Torres 4. Follow-up with Dr. Rubens Torres in the next 1-2 weeks 5. Home health orders to be forward to to Dr. Rubens Torres This visit included the following complex service elements: Complex medical decision-making associated with antimicrobial prescribing. In-depth chart review with high level synthesis for complex diagnoses. Managed infection treatment protocol associated with transitions of care for this complex patient. Carlton Mead MD 04/09/2025 08:25 EDT * Jason Álvarez DO - 04/08/2025 1:47 PM EDT Images from the original note were not included. [facility] Medicine Services PROGRESS NOTE Patient Name: Won Dennis : 1980 Date of Admission: 04/04/2025 Primary Care Physician: Provider, No Known Subjective Subjective CC: Right BKA cellulitis HPI: Patient seen resting comfortably in bed in no acute distress. Wound VAC in place. Reports mild right lower extremity pain. Otherwise no acute complaints or concerns today. Objective Objective Vital Signs: Temp: [97.4 ??F (36.3 ??C)-98.7 ??F (37.1 ??C)] 98 ??F (36.7 ??C) Heart Rate: [54-101] 54 Resp: [15-18] 18 BP: (103-132)/(59-84) 103/59 Flow (L/min) (Oxygen Therapy): [2-4] 2 Physical Exam Constitutional: General: He is not in acute distress. Cardiovascular: Rate and Rhythm: Normal rate. Pulses: Normal pulses. Pulmonary: Effort: Pulmonary effort is normal. No respiratory distress. Abdominal: General: There is no distension. Palpations: Abdomen is soft. Tenderness: There is no abdominal tenderness. There is no guarding or rebound. Musculoskeletal: Comments: Wound VAC in place over right BKA Skin: General: Skin is warm. Neurological: Mental Status: He is alert and oriented to person, place, and time. Psychiatric: Mood and Affect: Mood normal. Behavior: Behavior normal. Results Reviewed: LAB RESULTS: Lab 04/08/25 0841 04/07/25 0910 04/06/25 0341 04/05/25 0354 04/05/25 0018 04/04/25 1447 WBC 10.07 8.63 10.86* 11.18* -- 12.72* HEMOGLOBIN 14.0 14.7 13.9 13.9 -- 15.3 HEMATOCRIT 42.7 44.8 43.7 42.4 -- 47.9 PLATELETS 118* 149 115* 160 -- 232 NEUTROS ABS 8.57* 5.75 7.09* 8.23* -- 9.52* IMMATURE GRANS (ABS) 0.05 0.05 0.03 0.04 -- 0.03 LYMPHS ABS 0.94 1.77 2.23 1.56 -- 1.66 MONOS ABS 0.46 0.85 1.28* 1.23* -- 1.43* EOS ABS 0.03 0.18 0.20 0.09 -- 0.05 MCV 85.2 85.7 86.0 84.8 -- 84.9 SED RATE -- -- -- -- -- 51* CRP -- -- -- -- -- 8.57* PROTIME -- -- -- -- 15.9* -- APTT -- -- -- 35.3* 33.6* -- Lab 04/08/25 0841 04/07/25 0910 04/06/25 1916 04/06/25 0342 04/05/25 0354 04/04/25 1449 04/04/25 1447 SODIUM 136 139 -- 138 136 -- 136 POTASSIUM 4.6 4.2 4.0 3.6 3.9 -- 3.8 CHLORIDE 102 105 -- 103 103 -- 100 CO2 23.5 24.8 -- 24.2 24.0 -- 25.3 ANION GAP 10.5 9.2 -- 10.8 9.0 -- 10.7 BUN 13.2 13.1 -- 12.8 17.3 -- 18.3 CREATININE 0.69* 0.77 -- 0.80 0.92 1.10 0.94 EGFR 117.0 113.2 -- 111.9 105.2 -- 102.5 GLUCOSE 125* 112* -- 94 152* -- 90 CALCIUM 8.4* 8.6 -- 8.0* 7.8* -- 8.6 Lab 04/04/25 1447 TOTAL PROTEIN 7.3 ALBUMIN 4.1 GLOBULIN 3.2 ALT (SGPT) 26 AST (SGOT) 25 BILIRUBIN 1.0 ALK PHOS 106 Lab 04/05/25 0018 PROTIME 15.9* INR 1.19* Brief Urine Lab Results None Microbiology Results Abnormal None FL C Arm During Surgery Result Date: 04/07/2025 This procedure was auto-finalized with no dictation required. MRI Tibia Fibula Right With & Without Contrast Result Date: 04/07/2025 MRI TIBIA FIBULA RIGHT W WO CONTRAST Date of Exam: 04/07/2025 8:15 AM EDT Indication: evaluate interval change, osteomyelitis vs fluid collection. Comparison: 04/04/2025 Technique: Routine multiplanar/multisequence images of the right tibia and fibula were obtained before and after the uneventful intravenous administration of Vueway. Findings: Status post below-knee amputation, as before. There is soft tissue edema with skin thickening and postcontrast enhancement, primarily along the anterior aspect of the remaining lower leg, as before. In the subcutaneous tissues at the anterior-lateral aspect of the lower leg, extending inferiorly from the level of the inferior patellar tendon to the level of the distal tibia (axial images 10-35), there are irregular small T2 fluid signal foci with peripheral enhancement. The small irregular focal area of hypoenhancement adjacent to the distal tibia seen previously on series 19 image 10 appears similar on series 12 image 6. There is a small amount of focal T2 fluid signal intensity in this location. No definite new marrow signal abnormality to indicate osteomyelitis. No visualized knee effusion. There is diffuse muscle atrophy and postsurgical changes in the soft tissues, as before. Impression: Impression: 1.Status post below-knee amputation with soft tissue edema, skin thickening, and enhancement of the lower leg, as before, which may represent cellulitis. 2.Small irregular fluid signal foci in the subcutaneous tissues at the anterior-lateral aspect of the lower leg, extending inferiorly from the level of the inferior patellar tendon to the level of the distal tibia, most notably near the distal tibia. These could represent small abscesses versus infectious phlegmon. Ultrasound could be performed to assess for collection for drainage or aspiration. 3.No definite findings of osteomyelitis at this time. Electronically Signed: Hugh Buenrostro 04/07/2025 9:58 AM EDT Workstation ID: [id number] I have personally reviewed the therapy plans: [] PT/OT/ ST Therapy Plans Current medications: Scheduled Meds:Pharmacy Consult, , Not Applicable, BID [Held by provider] apixaban, 5 mg, Oral, Q12H atorvastatin, 40 mg, Oral, Nightly budesonide-formoterol, 2 puff, Inhalation, BID - RT cefTRIAXone, 2,000 mg, Intravenous, Q24H clotrimazole-betamethasone, 1 Application, Topical, Q12H DAPTOmycin, 8 mg/kg (Adjusted), Intravenous, Q24H ethyl alcohol, 2 Swab, Nasal, Once ferrous sulfate, 325 mg, Oral, BID furosemide, 20 mg, Oral, Daily hydroCHLOROthiazide Oral, 12.5 mg, Oral, Daily oxybutynin XL, 10 mg, Oral, Nightly saccharomyces boulardii, 250 mg, Oral, BID sertraline, 100 mg, Oral, Nightly sodium chloride, 10 mL, Intravenous, Q12H tamsulosin, 0.4 mg, Oral, Nightly valsartan, 40 mg, Oral, Q24H Continuous Infusions:[Held by provider] heparin, 18 Units/kg/hr, Last Rate: Stopped (04/08/25 1053) Pharmacy to Dose Heparin, PRN Meds:. acetaminophen OR acetaminophen OR acetaminophen senna-docusate sodium AND polyethylene glycol AND bisacodyl AND bisacodyl Calcium Replacement - Follow Nurse / BPA Driven Protocol fentaNYL citrate (PF) AND naloxone HYDROmorphone HYDROmorphone AND naloxone Magnesium Standard Dose Replacement - Follow Nurse / BPA Driven Protocol nitroglycerin ondansetron ODT Pharmacy to Dose Heparin Phosphorus Replacement - Follow Nurse / BPA Driven Protocol Potassium Replacement - Follow Nurse / BPA Driven Protocol [COMPLETED] Insert Peripheral IV AND sodium chloride sodium chloride sodium chloride Assessment & Plan Assessment & Plan Active Hospital Problems Diagnosis POA 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 Brief Hospital Course to date: Won Dennis is a 44 y.o. 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 MRI concerning for cellulitis. Orthopedic surgery and infectious disease consulted. Right BKA cellulitis -Patient presenting with 2 to 3 days of right BKA swelling, erythema and pain -MRI RLE revealing cellulitis, no obvious signs of OM or drainable fluid collection -Repeat MRI with small irregular fluid signal foci which may represent small abscess versus infectious phlegmon -Orthopedic surgery consulted, status post incision and drainage, debridement, and wound VAC assisted closure on 04/07. Orthopedic surgery planning for repeat right lower extremity irrigation, debridement, lyrical VAC closure versus secondary closure on 04/08. NPO for now. -Infectious disease consulted, continue daptomycin and ceftriaxone -PT/OT = home. Patients' mobility limitations impair their ability to participate in activities such as toileting, feeding, dressing, grooming, and bathing. Mobility limitations cannot be resolved bya cane or walker. The patient is able to safely use a manual wheelchair, and he will also have a caregiver in the home as well to help assist with the patient maneuvering. Factor II deficiency -Holding Eliquis for now. Continue heparin drip. HTN HLD -Continue HCTZ 12.5 mg, lasix 20mg. Hold Valsartan 40 mg for now. -Continue statin Mood disorder -Continue Sertraline BPH -Continue home medications Expected Discharge Location and Transportation: Home Expected Discharge Expected discharge date/ time has not been documented. VTE Prophylaxis: Pharmacologic & mechanical VTE prophylaxis orders are present. AM-PAC 6 Clicks Score (PT): 22 (04/08/25 1040) CODE STATUS: Code Status and Medical Interventions: CPR (Attempt to Resuscitate); Full Support Ordered at: 04/04/252047 Code Status (Patient has no pulse and is not breathing): CPR (Attempt to Resuscitate) Medical Interventions (Patient has pulse or is breathing): Full Support Level Of Support Discussed With: Patient Jason Álvarez DO 04/08/25 * Larisa Hamilton [facility] - 04/08/2025 11:48 AM EDT Pharmacy to Dose Heparin Infusion Note Won Dennis is a 44 y.o. male receiving heparin infusion. Therapy for (VTE/Cardiac): VTE (Full anticoagulation for factor II mutation) Patient Weight: 134 kg Initial Bolus (Y/N): No Any Bolus (Y/N): Yes Signs or Symptoms of Bleeding: None currently VTE (PE/DVT) Initial rate: 18 units/kg/hr (Max 1,500 units/hr) Anti-Xa Bolus Dose Infusion Hold Time Infusion Rate Change (units/kg/hr) Repeat Anti-Xa < 0.11 50 units/kg (4000 units Max) None Increase by 4 units/kg/hr 6 hours 0.11 - 0.19 25 units/kg (2000 units Max) None Increase by 3 units/kg/hr 6 hours 0.2 - 0.29 0 None Increase by 2 units/kg/hr 6 hours 0.3 - 0.7 0 None No Change 6 hours (after 2 consecutive levels in range check qAM) 0.71 - 0.8 0 None Decrease by 1 units/kg/hr 6 hours 0.81 - 0.9 0 None Decrease by 2 units/kg/hr 6 hours 0.91 - 1 0 60 minutes Decrease by 3 units/kg/hr 6 hours >1 0 Hold After Anti-Xa less than 0.7 decrease previous rate by 4 units/kg/hr Every 2 hours until Anti-Xa less than 0.7 then when infusion restarts in 6 hours Results from last 7 days Lab Units 04/08/25 0841 04/07/25 0910 04/06/25 0341 04/05/25 0354 04/05/25 0018 INR -- -- -- -- 1.19* HEMOGLOBIN g/dL 14.0 14.7 13.9 < > -- HEMATOCRIT % 42.7 44.8 43.7 < > -- PLATELETS 10*3/mm3 118* 149 115* < > -- < > = values in this interval not displayed. Date Time Anti-Xa Current Rate (units/kg/hr) Bolus (units) Rate Change (units/kg/hr) New Rate (units/kg/hr) Repeat Anti-Xa Comments / Pump Check 04/05 0000 Pending New start -- +11 11 06 RN Mary. 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 04/05 0500 0.30 11 -- -- 11 1200 RN 04/05 1215 0.17 11 1999 +3 14 2100 RN Pump checked 04/05 2043 0.38 14 -- -- 14 0300 RN 04/06 0530 0.25 14 -- +2 16 1200 RN Mary 04/06 1236 0.24 16 -- +2 18 1999 RN Pump checked 04/06 1916 0.33 18 -- -- 18 0100 RN 04/07 0215 0.38 18 -- -- 18 0800 RN 04/07 0910 0.30 18 -- -- 18 0600 04/08 RN; pump verified 04/08 0841 0.33 18 -- -- 18 TBD RN 04/08 1053 -- 18 -- -18 HELD TBD Procedure planned for today, follow for restart after procedure Larisa Hamilton RPH 04/08/2025 11:47 EDT * Cherri Bonner PA - 04/08/2025 9:22 AM EDT Images from the original note were not included. Won Sonny LOS: 4 days Patient Care Team: Provider, No Known as PCP - General Chief Complaint: Right below-knee amputation cellulitis Subjective Interval History: Resting comfortably bed this morning. Pain tolerable, no acute events overnight. Review of Systems: Gen-complains of subjective fevers CV- No chest pain, palpitations Resp- No cough, dyspnea GI- No N/V/D, abd pain Objective Vital Signs Vital Signs (last 24 hours) 04/05 0700 04/06 0659 04/06 0700 04/06 1233 Most Recent Temp (??F) 98.5 - 100.9 98.8 98.8 (37.1) 04/06 0858 Heart Rate 60 - 100 87 87 04/06 0858 Resp 16 - 18 18 18 04/06 0858 BP 110/62 - 122/75 120/69 120/69 04/06 0858 SpO2 (%) 88 - 94 90 04/06 0420 Physical Exam: Alert, oriented. No acute distress. Nonlabored respirations. Regular rate and rhythm. Abdomen nondistended. Right lower extremity: Operative dressing and wound vacuum-assisted closure in place. Scant serosanguineous output in canister. Results Review: I reviewed the patient's new clinical results. Medication Review: Hospital Medications (active) Dose Frequency Start End acetaminophen (TYLENOL) 160 MG/5ML oral solution 500 mg 500 mg Every 6 Hours PRN 04/04/2025 -- Admin Instructions: If given for fever, use fever parameter: fever greater than 100.4 ??F Based on patient request - if ordered for moderate or severe pain, provider allows for administration of a medication prescribed for a lower pain scale. Do not exceed 4 grams of acetaminophen in a 24 hr period. Max dose of 2gm for AST/ALT greater than 120 units/L. If given for pain, use the following pain scale: Mild Pain = Pain Score of 1-3, CPOT 1-2 Moderate Pain = Pain Score of 4-6, CPOT 3-4 Severe Pain = Pain Score of 7-10, CPOT 5-8 Route: Oral Linked Group 1: Placed in Or Linked Group acetaminophen (TYLENOL) suppository 325 mg 325 mg Every 6 Hours PRN 04/04/2025 -- Admin Instructions: If given for fever, use fever parameter: fever greater than 100.4 ??F Based on patient request - if ordered for moderate or severe pain, provider allows for administration of a medication prescribed for a lower pain scale. Do not exceed 4 grams of acetaminophen in a 24 hr period. Max dose of 2gm for AST/ALT greater than 120 units/L. If given for pain, use the following pain scale: Mild Pain = Pain Score of 1-3, CPOT 1-2 Moderate Pain = Pain Score of 4-6, CPOT 3-4 Severe Pain = Pain Score of 7-10, CPOT 5-8 Route: Rectal Linked Group 1: Placed in Or Linked Group acetaminophen (TYLENOL) tablet 500 mg 500 mg Every 6 Hours PRN 04/04/2025 -- Admin Instructions: If given for fever, use fever parameter: fever greater than 100.4 ??F Based on patient request - if ordered for moderate or severe pain, provider allows for administration of a medication prescribed for a lower pain scale. Do not exceed 4 grams of acetaminophen in a 24 hr period. Max dose of 2gm for AST/ALT greater than 120 units/L. If given for pain, use the following pain scale: Mild Pain = Pain Score of 1-3, CPOT 1-2 Moderate Pain = Pain Score of 4-6, CPOT 3-4 Severe Pain = Pain Score of 7-10, CPOT 5-8 Route: Oral Linked Group 1: Placed in Or Linked Group atorvastatin (LIPITOR) tablet 40 mg 40 mg Nightly 04/04/2025 -- Admin Instructions: Avoid grapefruit juice. Route: Oral bisacodyl (DULCOLAX) EC tablet 5 mg 5 mg Daily PRN 04/04/2025 -- Admin Instructions: Use if no bowel movement after 12 hours. Swallow whole. Do not crush, split, or chew tablet. Route: Oral Linked Group 2: Placed in And Linked Group bisacodyl (DULCOLAX) suppository 10 mg 10 mg Daily PRN 04/04/2025 -- Admin Instructions: Use if no bowel movement after 12 hours. Hold for diarrhea Route: Rectal Linked Group 2: Placed in And Linked Group Calcium Replacement - Follow Nurse / BPA Driven Protocol As Needed 04/04/2025 -- Admin Instructions: Open Order & Select [facility] Electrolyte Replacement Protocol Algorithm to View Details Route: Not Applicable cefTRIAXone (ROCEPHIN) 2,000 mg in sodium chloride 0.9 % 100 mL MBP 2,000 mg Every 24 Hours 04/05/2025 04/16/2025 Admin Instructions: LR should be paused and flushing of the line with NS is recommended prior to and after completion of ceftriaxone infusion due to incompatibility. Do not co-adminster with calcium-containing solutions. Caution: Look alike/sound alike drug alert Route: Intravenous clotrimazole-betamethasone (LOTRISONE) 1-0.05 % cream 1 Application 1 Application Every 12 Hours Scheduled 04/05/2025 04/12/2025 Admin Instructions: Apply to posterior thigh to rash. Route: Topical DAPTOmycin (CUBICIN) 800 mg in sodium chloride 0.9 % 50 mL IVPB 8 mg/kg ?? 98.8 kg (Adjusted) Every24 Hours 04/06/2025 04/16/2025 Admin Instructions: Caution: Look alike/sound alike drug alert. Refrigerate. Do not shake. Route: Intravenous ferrous sulfate tablet 325 mg 325 mg 2 Times Daily 04/04/2025 -- Admin Instructions: Swallow whole. Do not crush, split, or chew. Take with food if GI upset occurs. Route: Oral furosemide (LASIX) tablet 20 mg 20 mg Daily 04/05/2025 -- Route: Oral heparin 09904 units/250 mL (100 units/mL) in 0.45 % NaCl infusion 16 Units/kg/hr ?? 134 kg Titrated04/05/2025 -- Admin Instructions: Pharmacy dosing - VTE (PE/DVT) - Boluses (No initial bolus) Route: Intravenous hydroCHLOROthiazide tablet 12.5 mg 12.5 mg Daily 04/05/2025 -- Admin Instructions: Caution: Look alike/sound alike drug alert Route: Oral HYDROmorphone (DILAUDID) injection 0.5 mg 0.5 mg Every 2 Hours PRN 04/04/2025 04/09/2025 Admin Instructions: Based on patient request - if ordered for moderate or severe pain, provider allows for administration of a medication prescribed for a lower pain scale. If given for pain, use the following pain scale: Mild Pain = Pain Score of 1-3, CPOT 1-2 Moderate Pain = Pain Score of 4-6, CPOT 3-4 Severe Pain = Pain Score of 7-10, CPOT 5-8 Route: Intravenous Magnesium Standard Dose Replacement - Follow Nurse / BPA Driven Protocol As Needed 04/04/2025 -- Admin Instructions: Open Order & Select [facility] Electrolyte Replacement Protocol Algorithm to View Details Route: Not Applicable nitroglycerin (NITROSTAT) SL tablet 0.4 mg 0.4 mg Every 5 Minutes PRN 04/04/2025 -- Admin Instructions: If Pain Unrelieved After 3 Doses Notify MD May administer up to 3 doses per episode. Hold if SBP less than 100. Route: Sublingual ondansetron ODT (ZOFRAN-ODT) disintegrating tablet 4 mg 4 mg Every 6 Hours PRN 04/06/2025 -- Admin Instructions: If multiple N/V medications ordered, use in the following order: Ondansetron, Prochlorperazine, Promethazine. Use PO unless patient refuses or patient unable to swallow. Place on tongue and allow to dissolve. Route: Translingual oxybutynin XL (DITROPAN-XL) 24 hr tablet 10 mg 10 mg Nightly 04/04/2025 -- Admin Instructions: Do not crush or chew the capsules or tablets. The drug may not work as designedif the capsule or tablet is crushed or chewed. Swallow whole. Route: Oral Pharmacy to Dose Heparin Continuous PRN 04/04/2025 -- Route: Not Applicable Phosphorus Replacement - Follow Nurse / BPA Driven Protocol As Needed 04/04/2025 -- Admin Instructions: Open Order & Select [facility] Electrolyte Replacement Protocol Algorithm to View Details Route: Not Applicable polyethylene glycol (MIRALAX) packet 17 g 17 g Daily PRN 04/04/2025 -- Admin Instructions: Use if no bowel movement after 12 hours. Mix in 6-8 ounces of water. Use 4-8 ounces of water, tea, or juice for each 17 gram dose. Route: Oral Linked Group 2: Placed in And Linked Group potassium chloride (KLOR-CON M20) CR tablet 40 mEq 40 mEq Every 4 Hours 04/06/2025 04/06/2025 Admin Instructions: Do not crush or chew the capsules or tablets. The drug may not work as designedif the capsule or tablet is crushed or chewed. Swallow whole. Take with food. Route: Oral Potassium Replacement - Follow Nurse / BPA Driven Protocol As Needed 04/04/2025 -- Admin Instructions: Open Order & Select [facility] Electrolyte Replacement Protocol Algorithm to View Details Route: Not Applicable saccharomyces boulardii (FLORASTOR) capsule 250 mg 250 mg 2 Times Daily 04/04/2025 -- Route: Oral sennosides-docusate (PERICOLACE) 8.6-50 MG per tablet 2 tablet 2 tablet 2 Times Daily PRN 04/04/2025-- Admin Instructions: Start bowel management regimen if patient has not had a bowel movement after 12hours. Route: Oral Linked Group 2: Placed in And Linked Group sertraline (ZOLOFT) tablet 100 mg 100 mg Nightly 04/04/2025 -- Route: Oral sodium chloride 0.9 % flush 10 mL 10 mL As Needed 04/04/2025 -- Route: Intravenous Linked Group 3: Placed in And Linked Group sodium chloride 0.9 % flush 10 mL 10 mL Every 12 Hours Scheduled 04/04/2025 -- Route: Intravenous sodium chloride 0.9 % flush 10 mL 10 mL As Needed 04/04/2025 -- Route: Intravenous sodium chloride 0.9 % infusion 40 mL 40 mL As Needed 04/04/2025 -- Admin Instructions: Following administration of an IV intermittent medication, flush line with 40mLNS at 100mL/hr. Route: Intravenous tamsulosin (FLOMAX) 24 hr capsule 0.4 mg 0.4 mg Nightly 04/04/2025 -- Admin Instructions: Do not crush or chew the capsules or tablets. The drug may not work as designedif the capsule or tablet is crushed or chewed. Swallow whole. If patient unable to swallow whole, contact pharmacy for alternative. Route: Oral valsartan (DIOVAN) tablet 40 mg 40 mg Every 24 Hours Scheduled 04/05/2025 -- Admin Instructions: Hold for SBP less than 100, DBP less than 60, or heart rate less than 50. If a dose is held, please contact the provider. Route: Oral Assessment & Plan 44-year-old male status post right below-knee amputation, history of MRSA osteomyelitis, with rightbelow-knee amputation stump cellulitis, concern for developing abscess now status post right lower extremity irrigation, debridement, wound vacuum-assisted closure 04/07/2025. Right BKA infection Nonweightbearing right lower extremity Follow cultures Antibiotic management per infectious disease; appreciate their recommendations I discussed further management options with the patient today at bedside including surgical as wellas nonsurgical and the associated risks/benefits alternatives to each. We discussed repeat surgicalintervention including right lower extremity irrigation, debridement, wound vacuum-assisted closurechange versus secondary closure. The patient is amenable and wishes to proceed. The proposed procedure, risks/benefits, alternatives, expected perioperative course were discussed the patient detail. Risks discussed include but are not limited to infection, bleeding, injury to adjacent structures, wound healing complications, need for further surgery, DVT/PE, loss of limb, life. The patient seems to understand and accepts these risks and wishes to proceed with the proposed procedure. Plan for repeat right lower extremity irrigation, debridement, wound vacuum- assisted closure changeversus secondary closure today. N.p.o. VONDA Garcia 04/08/25 09:22 EDT Cosigned by Sushil Dean Jr., MD at 04/19/2025 10:33 AM EDT Associated attestation - Sushil Dean Jr., MD - 04/19/2025 10:33 AM EDT I have reviewed this documentation and agree. * Carlton Mead MD - 04/08/2025 7:37 AM EDT Images from the original note were not included. INFECTIOUS DISEASE Progress Note Won Dennis 1980 [id number] Date of Consult: 04/08/2025 Admission Date: 04/04/2025 Requesting Provider: Evaluating Physician: Dr. Mable Mead MD. 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 He c/o swelling with erythema for several days after a new prosthesis was fitted, which prompted him to seek treatment at [facility]. He is known to Dr. Dean. He denies recent antibiotics. He has an intolerance to keflex, he became severely nauseated with infusion. MRI completed yesterday demonstrates area of hypoatttenuation with small area of phlegmonous change. No osteomyelitis. No knee joint effusion. Denies n/v, or fever. No other symptoms. WBC count 12.7 on admission with sed rate of 51, CRP 8.57. Creatinine normal. No cultures obtained here. Known MRSA from previous wound 05/09/25. HDS, on Heparin gtt. Currently [facility] has been asked to manage the antimicrobials in this patient. 04/06/25: WBC count downtrending. Mild fever 99.2, with TMAX 100..9. The leg looks less erythematous, no pain to examination. 04/07/2025: His maximum temperature over the last 24 hours is 100.4. He has decreased right BKA stump pain. The rash over his popliteal fossa is markedly improved. His distal BKA stump erythema is markedly better. A follow-up MRI scan reveals small irregular fluid signal foci in the anterior lateralaspect of the BKA stump. 04/08/2025: he has remained afebrile. He underwent right BKA stump debridement last evening. Operative cultures are pending. White blood cell count yesterday was 8.6. he underwent repeat right BKA stump debridement today. Past Medical History: Diagnosis Date Amputation finger Anxiety and depression Asthma Bone spur of right foot CHF (congestive heart failure) Hx of right BKA 2022 Hyperlipidemia Hypertension MRSA (methicillin resistant Staphylococcus aureus) infection 05/09/2023 Right leg wound culture Osteomyelitis PE (pulmonary thromboembolism) Prostate enlargement Sleep apnea Past Surgical History: Procedure Laterality Date AMPUTATION Left left hand, index finger amputated past the first knuckle ANKLE TENDON REPAIR Left BACK SURGERY BELOW KNEE LEG AMPUTATION Right 2022 CARDIAC CATHETERIZATION LEG DEBRIDEMENT Right 04/07/2025 Procedure: LEG DEBRIDEMENT, IRRIGATION; Surgeon: Sushil Dean Jr., MD; Location: [facility] OR; Service: Orthopedics; Laterality: Right; PLACEMENT OF WOUND VAC Right 04/07/2025 Procedure: WOUND VACUUM ASSISTED CLOSURE; Surgeon: Sushil Dean Jr., MD; Location: [facility] OR; Service: Orthopedics; Laterality: Right; History reviewed. No pertinent family history. Social History Socioeconomic History Marital status: Unknown Tobacco Use Smoking status: Never Smokeless tobacco: Never Vaping Use Vaping status: Never Used Substance and Sexual Activity Alcohol use: Not Currently Drug use: Never Sexual activity: Defer Allergies Allergen Reactions Ceftin [Cefuroxime] Nausea And Vomiting Keflex [Cephalexin] Nausea And Vomiting Latex Rash Medication: Current Facility-Administered Medications: acetaminophen (TYLENOL) tablet 500 mg, 500 mg, Oral, Q6H PRN, 500 mg at 04/06/254 OR acetaminophen (TYLENOL) 160 MG/5ML oral solution 500 mg, 500 mg, Oral, Q6H PRN, 500 mg at 04/06/25 0036 OR acetaminophen (TYLENOL) suppository 325 mg, 325 mg, Rectal, Q6H PRN, Sushil Dean Jr., MD [Held by provider] apixaban (ELIQUIS) tablet 5 mg, 5 mg, Oral, Q12H, Sushil Dean Jr., MD atorvastatin (LIPITOR) tablet 40 mg, 40 mg, Oral, Nightly, Sushil Dean Jr., MD, 40 mg at 04/06/252100 sennosides-docusate (PERICOLACE) 8.6-50 MG per tablet 2 tablet, 2 tablet, Oral, BID PRN AND polyethylene glycol (MIRALAX) packet 17 g, 17 g, Oral, Daily PRN AND bisacodyl (DULCOLAX) EC tablet5 mg, 5 mg, Oral, Daily PRN AND bisacodyl (DULCOLAX) suppository 10 mg, 10 mg, Rectal, Daily PRN, Sushil Dean Jr., MD budesonide-formoterol (SYMBICORT) 160-4.5 MCG/ACT inhaler 2 puff, 2 puff, Inhalation, BID - RT, Sushil Dean Jr., MD, 2 puff at 04/06/25 1904 Calcium Replacement - Follow Nurse / BPA Driven Protocol, , Not Applicable, PRN, Sushil Dean Jr., MD cefTRIAXone (ROCEPHIN) 2,000 mg in sodium chloride 0.9 % 100 mL MBP, 2,000 mg, Intravenous, Q24H, Sushil Dean Jr., MD, Last Rate: 200 mL/hr at 04/07/252328, 2,000 mg at 04/07/252328 clotrimazole-betamethasone (LOTRISONE) 1-0.05 % cream 1 Application, 1 Application, Topical, Q12H, Sushil Dean Jr., MD, 1 Application at 04/07/25951 DAPTOmycin (CUBICIN) 800 mg in sodium chloride 0.9 % 50 mL IVPB, 8 mg/kg (Adjusted), Intravenous, Q24H, Sushil Dean Jr., MD, Last Rate: 100 mL/hr at 04/07/25950, 800 mg at 04/07/25950 ethyl alcohol 62 % 2 each, 2 Swab, Nasal, Once, Sushil Dean Jr., MD fentaNYL citrate (PF) (SUBLIMAZE) injection 50 mcg, 50 mcg, Intravenous, Q5 Min PRN, 50 mcg at 04/07/252155 AND naloxone (NARCAN) injection 0.4 mg, 0.4 mg, Intravenous, Q5 Min PRN, Sushil Dean Jr., MD ferrous sulfate tablet 325 mg, 325 mg, Oral, BID, Sushil Dean Jr., MD, 325 mg at 04/07/25950 furosemide (LASIX) tablet 20 mg, 20 mg, Oral, Daily, Sushil Dean Jr., MD, 20 mg at 04/07/25950 heparin 48038 units/250 mL (100 units/mL) in 0.45 % NaCl infusion, 18 Units/kg/hr, Intravenous, Titrated, Sushil Dean Jr., MD, Last Rate: 24.1 mL/hr at 04/07/252333, 18 Units/kg/hr at hydroCHLOROthiazide tablet 12.5 mg, 12.5 mg, Oral, Daily, Sushil Dean Jr., MD, 12.5 mg at 04/07/25950 HYDROmorphone (DILAUDID) injection 0.5 mg, 0.5 mg, Intravenous, Q2H PRN, Sushil Dean Jr., MD,0.5 mg at 04/08/25 06 HYDROmorphone (DILAUDID) injection 1 mg, 1 mg, Intravenous, Q15 Min PRN, 1 mg at 04/07/25 2212 AND naloxone (NARCAN) injection 0.4 mg, 0.4 mg, Intravenous, Q5 Min PRN, Sushil Dean Jr., MD Magnesium Standard Dose Replacement - Follow Nurse / BPA Driven Protocol, , Not Applicable, PRJermaine Pearson David A Jr., MD nitroglycerin (NITROSTAT) SL tablet 0.4 mg, 0.4 mg, Sublingual, Q5 Min PRN, Sushil Dean Jr., MD ondansetron ODT (ZOFRAN-ODT) disintegrating tablet 4 mg, 4 mg, Translingual, Q6H PRN, Sushil Dean Jr., MD, 4 mg at 04/06/25 1002 oxybutynin XL (DITROPAN-XL) 24 hr tablet 10 mg, 10 mg, Oral, Nightly, Sushil Dean Jr., MD, 10mg at 04/06/252101 Pharmacy to Dose Heparin, , Not Applicable, Continuous PRN, Sushil Dean Jr., MD Phosphorus Replacement - Follow Nurse / BPA Driven Protocol, , Not Applicable, PRN, Benito Dean Jr., MD Potassium Replacement - Follow Nurse / BPA Driven Protocol, , Not Applicable, PRN, Sushil Dean Jr., MD saccharomyces boulardii (FLORASTOR) capsule 250 mg, 250 mg, Oral, BID, Sushil Dean Jr., MD, 250 mg at 04/07/25950 sertraline (ZOLOFT) tablet 100 mg, 100 mg, Oral, Nightly, Sushil Dean Jr., MD, 100 mg at 04/06/252101 [COMPLETED] Insert Peripheral IV, , , Once AND sodium chloride 0.9 % flush 10 mL, 10 mL, Intravenous, PRN, Sushil Dean Jr., MD sodium chloride 0.9 % flush 10 mL, 10 mL, Intravenous, Q12H, Sushil Dean Jr., MD, 10 mL at 04/07/25 0952 sodium chloride 0.9 % flush 10 mL, 10 mL, Intravenous, PRN, Sushil Dean Jr., MD sodium chloride 0.9 % infusion 40 mL, 40 mL, Intravenous, PRN, Sushil Dean Jr., MD tamsulosin (FLOMAX) 24 hr capsule 0.4 mg, 0.4 mg, Oral, Nightly, Sushil Dean Jr., MD, 0.4 mg at 04/06/25 2101 valsartan (DIOVAN) tablet 40 mg, 40 mg, Oral, Q24H, Sushil Dean Jr., MD, 40 mg at 04/07/25 0951 Antibiotics: Anti-Infectives (From admission, onward) Ordered Dose/Rate Route Frequency Start Stop 04/07/25 1644 vancomycin IVPB 2000 mg in 0.9% Sodium Chloride 500 mL Ordering Provider: Sushil Dean Jr., MD 15 mg/kg ?? 134 kg 250 mL/hr over 120 Minutes Intravenous Once 04/07/25 1646 04/07/25 2036 04/06/25 0815 DAPTOmycin (CUBICIN) 800 mg in sodium chloride 0.9 % 50 mL IVPB Ordering Provider: Sushil Dean Jr., MD 8 mg/kg ?? 98.8 kg (Adjusted) 100 mL/hr over 30 Minutes Intravenous Every 24 Hours 04/06/25 1000 04/16/25 0959 04/04/25 2006 cefTRIAXone (ROCEPHIN) 2,000 mg in sodium chloride 0.9 % 100 mL MBP Ordering Provider: Sushil Dean Jr., MD 2,000 mg 200 mL/hr over 30 Minutes Intravenous Every 24 Hours 04/05/25 2000 04/16/25 0814 04/05/25 1207 DAPTOmycin (CUBICIN) 800 mg in sodium chloride 0.9 % 50 mL IVPB Ordering Provider: Carlton Mead MD 8 mg/kg ?? 98.8 kg (Adjusted) 100 mL/hr over 30 Minutes Intravenous Every 24 Hours 04/05/25 1300 04/05/25 1427 04/05/25 0031 vancomycin IVPB 1500 mg in 0.9% NaCl (Premix) 500 mL Status: Discontinued Ordering Provider: Una Perla PharmD 1,500 mg 333.3 mL/hr over 90 Minutes Intravenous Every 12 Hours 04/05/25 0800 04/05/25 1207 04/04/252004 Pharmacy to dose vancomycin Status: Discontinued Ordering Provider: Leonora Shepherd MD Not Applicable Continuous PRN 04/04/25200404/05/25 1207 04/04/25 1943 vancomycin 2750 mg/500 mL 0.9% NS IVPB ([facility]) Ordering Provider: Mario Crowley, DO 20 mg/kg ?? 134 kg over 165 Minutes Intravenous Once 04/04/25195804/04/25230604/04/251942 cefTRIAXone (ROCEPHIN) 2,000 mg in sodium chloride 0.9 % 100 mL MBP Ordering Provider: Leonora Shepherd MD 2,000 mg 200 mL/hr over 30 Minutes Intravenous Once 04/04/25195804/05/25 0012 Review of Systems: See HPI Physical Exam: Vital Signs Temp (24hrs), Av.3 ??F (36.8 ??C), Min:97.4 ??F (36.3 ??C), Max:98.7 ??F (37.1 ??C) Temp Min: 97.4 ??F (36.3 ??C) Max: 98.7 ??F (37.1 ??C) BP Min: 107/65 Max: 133/79 Pulse Min: 73 Max: 101 Resp Min: 15 Max: 18 SpO2 Min: 89 % Max: 95 % GENERAL: Awake and alert, in moderate distress, pulling covers off c/o feeling hot HEENT: Normocephalic, atraumatic. PERRL. EOMI. No conjunctival injection. No icterus. NECK: Supple . HEART: RRR; No murmur, rubs, gallops. LUNGS: Coarse auscultation bilaterally without wheezing, rales, rhonchi. Normal respiratory effort.Nonlabored. ABDOMEN: Soft, nontender, nondistended. No rebound or guarding. NO mass or HSM. EXT: . Right BKA stump is dressed.. : Without [place] catheter. MSK: No joint effusions or erythema SKIN: No diffuse rash. NEURO: Oriented to PPT. Motor 5/5 strength PSYCHIATRIC: Normal insight and judgment. Cooperative with PE Laboratory Data Results from last 7 days Lab Units 04/07/25 0910 04/06/25 0341 04/05/25 0354 WBC 10*3/mm3 8.63 10.86* 11.18* HEMOGLOBIN g/dL 14.7 13.9 13.9 HEMATOCRIT % 44.8 43.7 42.4 PLATELETS 10*3/mm3 149 115* 160 Results from last 7 days Lab Units 04/07/25 0910 SODIUM mmol/L 139 POTASSIUM mmol/L 4.2 CHLORIDE mmol/L 105 CO2 mmol/L 24.8 BUN mg/dL 13.1 CREATININE mg/dL 0.77 GLUCOSE mg/dL 112* CALCIUM mg/dL 8.6 Results from last 7 days Lab Units 04/04/25 1447 ALK PHOS U/L 106 BILIRUBIN mg/dL 1.0 ALT (SGPT) U/L 26 AST (SGOT) U/L 25 Results from last 7 days Lab Units 04/04/25 1447 SED RATE mm/hr 51* Results from last 7 days Lab Units 04/04/25 1447 CRP mg/dL 8.57* Results from last 7 days Lab Units 04/05/25 1215 CK TOTAL U/L 140 Estimated Creatinine Clearance: 171.1 mL/min (by C-G formula based on SCr of 0.77 mg/dL). Microbiology: No results found for: ACANTHNAEG , AFBCX , BPERTUSSISCX , BLOODCX No results found for: BCIDPCR , CXREFLEX , CSFCX , CULTURETIS No results found for: CULTURES , HSVCX , URCX No results found for: EYECULTURE , GCCX , HSVCULTURE , LABHSV No results found for: LEGIONELLA , MRSACX , MUMPSCX , MYCOPLASCX No results found for: NOCARDIACX , STOOLCX No results found for: THROATCX , UNSTIMCULT , URINECX , CULTURE , VZVCULTUR No results found for: VIRALCULTU , WOUNDCX Radiology: Imaging Results (Last 72 Hours) Procedure Component Value Units Date/Time FL C Arm During Surgery [[id number]] Resulted: 04/07/252137 Updated: 04/07/252137 Narrative: This procedure was auto-finalized with no dictation required. MRI Tibia Fibula Right With & Without Contrast [[id number]] Collected: 04/07/2538 Updated: 04/07/25 1001 Narrative: MRI TIBIA FIBULA RIGHT W WO CONTRAST Date of Exam: 04/07/2025 8:15 AM EDT Indication: evaluate interval change, osteomyelitis vs fluid collection. Comparison: 04/04/2025 Technique: Routine multiplanar/multisequence images of the right tibia and fibula were obtained before and after the uneventful intravenous administration of Vueway. Findings: Status post below-knee amputation, as before. There is soft tissue edema with skin thickening and postcontrast enhancement, primarily along the anterior aspect of the remaining lower leg, as before. In the subcutaneous tissues at the anterior-lateral aspect of the lower leg, extending inferiorly from the level of the inferior patellar tendon to the level of the distal tibia (axial images 10-35),there are irregular small T2 fluid signal foci with peripheral enhancement. The small irregular focal area of hypoenhancement adjacent to the distal tibia seen previously on series 19 image 10 appears similar on series 12 image 6. There is a small amount of focal T2 fluid signal intensity in this location. No definite new marrow signal abnormality to indicate osteomyelitis. No visualized knee effusion. There is diffuse muscle atrophy and postsurgical changes in the soft tissues, as before. Impression: Impression: 1.Status post below-knee amputation with soft tissue edema, skin thickening, and enhancement of thelower leg, as before, which may represent cellulitis. 2.Small irregular fluid signal foci in the subcutaneous tissues at the anterior- lateral aspect of the lower leg, extending inferiorly from the level of the inferior patellar tendon to the level of the distal tibia, most notably near the distal tibia. These could represent small abscesses versus infectious phlegmon. Ultrasound could be performed to assess for collection for drainage or aspiration. 3.No definite findings of osteomyelitis at this time. 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 (Treated by ID in [place] Dr. Harris). Dr. Torres treated him with very prolonged intravenousantibiotic therapy followed by a year of oral doxycycline due to concern about potential for relapse. His stump cellulitis is markedly better but he still has an area of fluctuance and tenderness suggestive of a possible abscess. Right leg dermatitis-he has significant right posterior knee dermatitis which is improving on Lotrisone. 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 HTN HLD Mood disorder PLAN/RECOMMENDATIONS: 1. Intravenous daptomycin 2. Continue ceftriaxone 3. Surgical intervention per Dr. Dean This visit included the following complex service elements: Complex medical decision-making associated with antimicrobial prescribing. In-depth chart review with high level synthesis for complex diagnoses. Managed infection treatment protocol associated with transitions of care for this complex patient. Carlton Mead MD 04/08/2025 07:37 EDT * Jason Álvarez, DO - 04/07/2025 2:11 PM EDT Images from the original note were not included. [facility] Medicine Services PROGRESS NOTE Patient Name: Won Dennis : 1980 Date of Admission: 04/04/2025 Primary Care Physician: Provider, No Known Subjective Subjective CC: Right BKA cellulitis HPI: Patient seen resting comfortably in bed in no acute distress. Reports pain has improved today. Patient does report however continued swelling of the right BKA. Objective Objective Vital Signs: Temp: [98 ??F (36.7 ??C)-100.4 ??F (38 ??C)] 98.3 ??F (36.8 ??C) Heart Rate: [59-96] 73 Resp: [16-18] 18 BP: (97-134)/(50-79) 133/79 Physical Exam Constitutional: General: He is not in acute distress. Cardiovascular: Rate and Rhythm: Normal rate. Pulses: Normal pulses. Pulmonary: Effort: Pulmonary effort is normal. No respiratory distress. Abdominal: General: There is no distension. Palpations: Abdomen is soft. Tenderness: There is no abdominal tenderness. There is no guarding or rebound. Musculoskeletal: General: Swelling present. Comments: Right BKA Skin: General: Skin is warm. Neurological: Mental Status: He is alert and oriented to person, place, and time. Psychiatric: Mood and Affect: Mood normal. Behavior: Behavior normal. Results Reviewed: LAB RESULTS: Lab 04/07/25 0910 04/06/25 0341 04/05/25 0354 04/05/25 0018 04/04/25 1447 WBC 8.63 10.86* 11.18* -- 12.72* HEMOGLOBIN 14.7 13.9 13.9 -- 15.3 HEMATOCRIT 44.8 43.7 42.4 -- 47.9 PLATELETS 149 115* 160 -- 232 NEUTROS ABS 5.75 7.09* 8.23* -- 9.52* IMMATURE GRANS (ABS) 0.05 0.03 0.04 -- 0.03 LYMPHS ABS 1.77 2.23 1.56 -- 1.66 MONOS ABS 0.85 1.28* 1.23* -- 1.43* EOS ABS 0.18 0.20 0.09 -- 0.05 MCV 85.7 86.0 84.8 -- 84.9 SED RATE -- -- -- -- 51* CRP -- -- -- -- 8.57* PROTIME -- -- -- 15.9* -- APTT -- -- 35.3* 33.6* -- Lab 04/07/25 0910 04/06/25 1916 04/06/25 0342 04/05/25 0354 04/04/25 1447 SODIUM 139 -- 138 136 136 POTASSIUM 4.2 4.0 3.6 3.9 3.8 CHLORIDE 105 -- 103 103 100 CO2 24.8 -- 24.2 24.0 25.3 ANION GAP 9.2 -- 10.8 9.0 10.7 BUN 13.1 -- 12.8 17.3 18.3 CREATININE 0.77 -- 0.80 0.92 0.94 EGFR 113.2 -- 111.9 105.2 102.5 GLUCOSE 112* -- 94 152* 90 CALCIUM 8.6 -- 8.0* 7.8* 8.6 Lab 04/04/25 1447 TOTAL PROTEIN 7.3 ALBUMIN 4.1 GLOBULIN 3.2 ALT (SGPT) 26 AST (SGOT) 25 BILIRUBIN 1.0 ALK PHOS 106 Lab 04/05/25 0018 PROTIME 15.9* INR 1.19* Brief Urine Lab Results None Microbiology Results Abnormal None MRI Tibia Fibula Right With & Without Contrast Result Date: 04/07/2025 MRI TIBIA FIBULA RIGHT W WO CONTRAST Date of Exam: 04/07/2025 8:15 AM EDT Indication: evaluate interval change, osteomyelitis vs fluid collection. Comparison: 04/04/2025 Technique: Routine multiplanar/multisequence images of the right tibia and fibula were obtained before and after the uneventful intravenous administration of Vueway. Findings: Status post below-knee amputation, as before. There is soft tissue edema with skin thickening and postcontrast enhancement, primarily along the anterior aspect of the remaining lower leg, as before. In the subcutaneous tissues at the anterior-lateral aspect of the lower leg, extending inferiorly from the level of the inferior patellar tendon to the level of the distal tibia (axial images 10-35), there are irregular small T2 fluid signal foci with peripheral enhancement. The small irregular focal area of hypoenhancement adjacent to the distal tibia seen previously on series 19 image 10 appears similar on series 12 image 6. There is a small amount of focal T2 fluid signal intensity in this location. No definite new marrow signal abnormality to indicate osteomyelitis. No visualized knee effusion. There is diffuse muscle atrophy and postsurgical changes in the soft tissues, as before. Impression: Impression: 1.Status post below-knee amputation with soft tissue edema, skin thickening, and enhancement of the lower leg, as before, which may represent cellulitis. 2.Small irregular fluid signal foci in the subcutaneous tissues at the anterior-lateral aspect of the lower leg, extending inferiorly from the level of the inferior patellar tendon to the level of the distal tibia, most notably near the distal tibia. These could represent small abscesses versus infectious phlegmon. Ultrasound could be performed to assess for collection for drainage or aspiration. 3.No definite findings of osteomyelitis at this time. Electronically Signed: Hugh Buenrostro 04/07/2025 9:58 AM EDT Workstation ID: [id number] I have personally reviewed the therapy plans: [] PT/OT/ ST Therapy Plans Current medications: Scheduled Meds:[Held by provider] apixaban, 5 mg, Oral, Q12H atorvastatin, 40 mg, Oral, Nightly budesonide-formoterol, 2 puff, Inhalation, BID - RT cefTRIAXone, 2,000 mg, Intravenous, Q24H clotrimazole-betamethasone, 1 Application, Topical, Q12H DAPTOmycin, 8 mg/kg (Adjusted), Intravenous, Q24H ferrous sulfate, 325 mg, Oral, BID furosemide, 20 mg, Oral, Daily hydroCHLOROthiazide Oral, 12.5 mg, Oral, Daily oxybutynin XL, 10 mg, Oral, Nightly saccharomyces boulardii, 250 mg, Oral, BID sertraline, 100 mg, Oral, Nightly sodium chloride, 10 mL, Intravenous, Q12H tamsulosin, 0.4 mg, Oral, Nightly valsartan, 40 mg, Oral, Q24H Continuous Infusions:heparin, 18 Units/kg/hr, Last Rate: 18 Units/kg/hr (04/07/25 1248) Pharmacy to Dose Heparin, PRN Meds:. acetaminophen OR acetaminophen OR acetaminophen senna-docusate sodium AND polyethylene glycol AND bisacodyl AND bisacodyl Calcium Replacement - Follow Nurse / BPA Driven Protocol HYDROmorphone Magnesium Standard Dose Replacement - Follow Nurse / BPA Driven Protocol nitroglycerin ondansetron ODT Pharmacy to Dose Heparin Phosphorus Replacement - Follow Nurse / BPA Driven Protocol Potassium Replacement - Follow Nurse / BPA Driven Protocol [COMPLETED] Insert Peripheral IV AND sodium chloride sodium chloride sodium chloride Assessment & Plan Assessment & Plan Active Hospital Problems Diagnosis POA 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 Brief Hospital Course to date: Won Dennis is a 44 y.o. 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 MRI concerning for cellulitis. Orthopedic surgery and infectious disease consulted. Right BKA cellulitis -Patient presenting with 2 to 3 days of right BKA swelling, erythema and pain -MRI RLE revealing cellulitis, no obvious signs of OM or drainable fluid collection -Repeat MRI with small irregular fluid signal foci which may represent small abscess versus infectious phlegmon -Orthopedic surgery consulted, NPO for now pending interpretation of repeat MRI findings -Infectious disease consulted, continue daptomycin and ceftriaxone -PT/OT = home. Patients' mobility limitations impair their ability to participate in activities such as toileting, feeding, dressing, grooming, and bathing. Mobility limitations cannot be resolved bya cane or walker. The patient is able to safely use a manual wheelchair, and he will also have a caregiver in the home as well to help assist with the patient maneuvering. Factor II deficiency -Flo Singh for now. Continue heparin drip. HTN HLD -Continue HCTZ 12.5 mg, lasix 20mg, and Valsartan 40 mg -Continue statin Mood disorder -Continue Sertraline BPH -continue home medications Expected Discharge Location and Transportation: Home Expected Discharge Expected discharge date/ time has not been documented. VTE Prophylaxis: Pharmacologic & mechanical VTE prophylaxis orders are present. AM-PAC 6 Clicks Score (PT): 23 (04/07/25 0800) CODE STATUS: Code Status and Medical Interventions: CPR (Attempt to Resuscitate); Full Support Ordered at: 04/04/252047 Code Status (Patient has no pulse and is not breathing): CPR (Attempt to Resuscitate) Medical Interventions (Patient has pulse or is breathing): Full Support Level Of Support Discussed With: Patient Jason Álvarez DO 04/07/25 * Larisa Hamilton [facility] - 04/07/2025 11:56 AM EDT Pharmacy to Dose Heparin Infusion Note Won Dennis is a 44 y.o. male receiving heparin infusion. Therapy for (VTE/Cardiac): VTE (Full anticoagulation for factor II mutation) Patient Weight: 134 kg Initial Bolus (Y/N): No Any Bolus (Y/N): Yes Signs or Symptoms of Bleeding: None currently VTE (PE/DVT) Initial rate: 18 units/kg/hr (Max 1,500 units/hr) Anti-Xa Bolus Dose Infusion Hold Time Infusion Rate Change (units/kg/hr) Repeat Anti-Xa < 0.11 50 units/kg (4000 units Max) None Increase by 4 units/kg/hr 6 hours 0.11 - 0.19 25 units/kg (2000 units Max) None Increase by 3 units/kg/hr 6 hours 0.2 - 0.29 0 None Increase by 2 units/kg/hr 6 hours 0.3 - 0.7 0 None No Change 6 hours (after 2 consecutive levels in range check qAM) 0.71 - 0.8 0 None Decrease by 1 units/kg/hr 6 hours 0.81 - 0.9 0 None Decrease by 2 units/kg/hr 6 hours 0.91 - 1 0 60 minutes Decrease by 3 units/kg/hr 6 hours >1 0 Hold After Anti-Xa less than 0.7 decrease previous rate by 4 units/kg/hr Every 2 hours until Anti-Xa less than 0.7 then when infusion restarts in 6 hours Results from last 7 days Lab Units 04/07/25 0910 04/06/25 0341 04/05/25 0354 04/05/25 0018 INR -- -- -- 1.19* HEMOGLOBIN g/dL 14.7 13.9 13.9 -- HEMATOCRIT % 44.8 43.7 42.4 -- PLATELETS 10*3/mm3 149 115* 160 -- Date Time Anti-Xa Current Rate (units/kg/hr) Bolus (units) Rate Change (units/kg/hr) New Rate (units/kg/hr) Repeat Anti-Xa Comments / Pump Check 04/05 0000 Pending New start -- +11 11 0600 DW RN Mary. 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 04/05 0500 0.30 11 -- -- 11 1200 RN 04/05 1215 0.17 11 1999 +3 14 2100 DW RN Pump checked 04/05 2043 0.38 14 -- -- 14 0300 RN 04/06 0530 0.25 14 -- +2 16 1200 DW RN Mary 04/06 1236 0.24 16 -- +2 18 2000 DW RN Pump checked 04/06 1916 0.33 18 -- -- 18 0100 RN 04/07 0215 0.38 18 -- -- 18 0800 RN 0910 0.30 18 -- -- 18 0600 04/08 RN; pump verified Larisa Hamilton RPH 04/07/2025 11:55 EDT * Carlton Mead MD - 04/07/2025 8:47 AM EDT Images from the original note were not included. INFECTIOUS DISEASE Progress Note Won Dennis 1980 [id number] Date of Consult: 04/07/2025 Admission Date: 04/04/2025 Requesting Provider: Evaluating Physician: Dr. Mable Mead MD. 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 He c/o swelling with erythema for several days after a new prosthesis was fitted, which prompted him to seek treatment at [facility]. He is known to Dr. Dean. He denies recent antibiotics. He has an intolerance to keflex, he became severely nauseated with infusion. MRI completed yesterday demonstrates area of hypoatttenuation with small area of phlegmonous change. No osteomyelitis. No knee joint effusion. Denies n/v, or fever. No other symptoms. WBC count 12.7 on admission with sed rate of 51, CRP 8.57. Creatinine normal. No cultures obtained here. Known MRSA from previous wound 05/09/25. HDS, on Heparin gtt. Currently [facility] has been asked to manage the antimicrobials in this patient. 04/06/25: WBC count downtrending. Mild fever 99.2, with TMAX 100..9. The leg looks less erythematous, no pain to examination. 04/07/2025: His maximum temperature over the last 24 hours is 100.4. He has decreased right BKA stump pain. The rash over his popliteal fossa is markedly improved. His distal BKA stump erythema is markedly better. A follow-up MRI scan reveals small irregular fluid signal foci in the anterior lateralaspect of the BKA stump. Past Medical History: Diagnosis Date Amputation finger Anxiety and depression Asthma Bone spur of right foot CHF (congestive heart failure) Hx of right BKA 2022 Hyperlipidemia Hypertension MRSA (methicillin resistant Staphylococcus aureus) infection 05/09/2023 Right leg wound culture Osteomyelitis PE (pulmonary thromboembolism) Prostate enlargement Sleep apnea Past Surgical History: Procedure Laterality Date AMPUTATION Left left hand, index finger amputated past the first knuckle ANKLE TENDON REPAIR Left BACK SURGERY BELOW KNEE LEG AMPUTATION Right 2022 CARDIAC CATHETERIZATION History reviewed. No pertinent family history. Social History Socioeconomic History Marital status: Unknown Tobacco Use Smoking status: Never Smokeless tobacco: Never Vaping Use Vaping status: Never Used Substance and Sexual Activity Alcohol use: Not Currently Drug use: Never Sexual activity: Defer Allergies Allergen Reactions Ceftin [Cefuroxime] Nausea And Vomiting Keflex [Cephalexin] Nausea And Vomiting Latex Rash Medication: Current Facility-Administered Medications: acetaminophen (TYLENOL) tablet 500 mg, 500 mg, Oral, Q6H PRN, 500 mg at 04/06/252153 OR acetaminophen (TYLENOL) 160 MG/5ML oral solution 500 mg, 500 mg, Oral, Q6H PRN, 500 mg at 04/06/25 0036 OR acetaminophen (TYLENOL) suppository 325 mg, 325 mg, Rectal, Q6H PRN, Leonora Shepherd MD [Held by provider] apixaban (ELIQUIS) tablet 5 mg, 5 mg, Oral, Q12H, Jason Álvarez DO atorvastatin (LIPITOR) tablet 40 mg, 40 mg, Oral, Nightly, Leonora Shepherd MD, 40 mg at 04/06/252100 sennosides-docusate (PERICOLACE) 8.6-50 MG per tablet 2 tablet, 2 tablet, Oral, BID PRN AND polyethylene glycol (MIRALAX) packet 17 g, 17 g, Oral, Daily PRN AND bisacodyl (DULCOLAX) EC tablet5 mg, 5 mg, Oral, Daily PRN AND bisacodyl (DULCOLAX) suppository 10 mg, 10 mg, Rectal, Daily PRN, Leonora Shepherd MD budesonide-formoterol (SYMBICORT) 160-4.5 MCG/ACT inhaler 2 puff, 2 puff, Inhalation, BID - RT, Jason Álvarez DO, 2 puff at 04/06/25 190 Calcium Replacement - Follow Nurse / BPA Driven Protocol, , Not Applicable, PRN, Leonora Shepherd MD cefTRIAXone (ROCEPHIN) 2,000 mg in sodium chloride 0.9 % 100 mL MBP, 2,000 mg, Intravenous, Q24H, Carlton Mead MD, Last Rate: 200 mL/hr at 04/06/252100, 2,000 mg at 04/06/252100 clotrimazole-betamethasone (LOTRISONE) 1-0.05 % cream 1 Application, 1 Application, Topical, Q12H, Ayah Valentin, [employer], 1 Application at 04/06/252101 DAPTOmycin (CUBICIN) 800 mg in sodium chloride 0.9 % 50 mL IVPB, 8 mg/kg (Adjusted), Intravenous, Q24H, Carlton Mead MD, Last Rate: 100 mL/hr at 04/06/25 1059, 800 mg at 04/06/25 1059 ferrous sulfate tablet 325 mg, 325 mg, Oral, BID, Leonora Shepherd MD, 325 mg at 04/06/252100 furosemide (LASIX) tablet 20 mg, 20 mg, Oral, Daily, Leonora Shepherd MD, 20 mg at 04/06/25899 heparin 12179 units/250 mL (100 units/mL) in 0.45 % NaCl infusion, 18 Units/kg/hr, Intravenous, Titrated, Cherri Beatty, [facility], Last Rate: 24.1 mL/hr at 04/07/258, 18 Units/kg/hr at 04/07/25217 hydroCHLOROthiazide tablet 12.5 mg, 12.5 mg, Oral, Daily, Leonora Shepherd MD, 12.5 mg at 9 HYDROmorphone (DILAUDID) injection 0.5 mg, 0.5 mg, Intravenous, Q2H PRN, Leonora Shepherd MD, 0.5 mg at 04/05/25 0036 Magnesium Standard Dose Replacement - Follow Nurse / BPA Driven Protocol, , Not Applicable, PRN, Leonora Shepherd MD nitroglycerin (NITROSTAT) SL tablet 0.4 mg, 0.4 mg, Sublingual, Q5 Min PRN, Leonora Shepherd MD ondansetron ODT (ZOFRAN-ODT) disintegrating tablet 4 mg, 4 mg, Translingual, Q6H PRN, Jason Álvarez DO, 4 mg at 04/06/25 1002 oxybutynin XL (DITROPAN-XL) 24 hr tablet 10 mg, 10 mg, Oral, Nightly, Leonora Shepherd MD, 10 mg at 04/06/252101 Pharmacy to Dose Heparin, , Not Applicable, Continuous PRN, Una Perla, PharmD Phosphorus Replacement - Follow Nurse / BPA Driven Protocol, , Not Applicable, PRN, Joao Leonora, MD Potassium Replacement - Follow Nurse / BPA Driven Protocol, , Not Applicable, Joao PAZ Laurie, MD saccharomyces boulardii (FLORASTOR) capsule 250 mg, 250 mg, Oral, BID, Leonora Shepherd MD, 250 mgat 04/06/252100 sertraline (ZOLOFT) tablet 100 mg, 100 mg, Oral, Nightly, Leonora Shepherd MD, 100 mg at 04/06/252101 [COMPLETED] Insert Peripheral IV, , , Once AND sodium chloride 0.9 % flush 10 mL, 10 mL, Intravenous, PRN, Leonora Shepherd MD sodium chloride 0.9 % flush 10 mL, 10 mL, Intravenous, Q12H, Leonora Shepherd MD, 10 mL at 04/06/25 0900 sodium chloride 0.9 % flush 10 mL, 10 mL, Intravenous, PRN, Leonora Shepherd MD sodium chloride 0.9 % infusion 40 mL, 40 mL, Intravenous, PRN, Leonora Shepherd MD tamsulosin (FLOMAX) 24 hr capsule 0.4 mg, 0.4 mg, Oral, Nightly, Leonora Shepherd MD, 0.4 mg at 04/06/252100 valsartan (DIOVAN) tablet 40 mg, 40 mg, Oral, Q24H, Leonora Shepherd MD, 40 mg at 04/06/25 0859 Antibiotics: Anti-Infectives (From admission, onward) Ordered Dose/Rate Route Frequency Start Stop 04/06/25 0815 DAPTOmycin (CUBICIN) 800 mg in sodium chloride 0.9 % 50 mL IVPB Ordering Provider: Carlton Mead MD 8 mg/kg ?? 98.8 kg (Adjusted) 100 mL/hr over 30 Minutes Intravenous Every 24 Hours 04/06/25 1000 04/16/25 0959 04/04/252005 cefTRIAXone (ROCEPHIN) 2,000 mg in sodium chloride 0.9 % 100 mL MBP Ordering Provider: Carlton Mead MD 2,000 mg 200 mL/hr over 30 Minutes Intravenous Every 24 Hours 04/05/25199904/16/25 0814 04/05/25 1207 DAPTOmycin (CUBICIN) 800 mg in sodium chloride 0.9 % 50 mL IVPB Ordering Provider: Carlton Mead MD 8 mg/kg ?? 98.8 kg (Adjusted) 100 mL/hr over 30 Minutes Intravenous Every 24 Hours 04/05/25 1300 04/05/25 1427 04/05/25 0031 vancomycin IVPB 1500 mg in 0.9% NaCl (Premix) 500 mL Status: Discontinued Ordering Provider: Una Perla, Jasbir 1,500 mg 333.3 mL/hr over 90 Minutes Intravenous Every 12 Hours 04/05/25 0800 04/05/25 12004/04/252004 Pharmacy to dose vancomycin Status: Discontinued Ordering Provider: Leonora Shepherd MD Not Applicable Continuous PRN 04/04/25200404/05/25120604/04/25 194 vancomycin 2750 mg/500 mL 0.9% NS IVPB ([facility]) Ordering Provider: Mario Crowley, DO 20 mg/kg ?? 134 kg over 165 Minutes Intravenous Once 04/04/25195804/04/25230604/04/251942 cefTRIAXone (ROCEPHIN) 2,000 mg in sodium chloride 0.9 % 100 mL MBP Ordering Provider: Leonora Shepherd MD 2,000 mg 200 mL/hr over 30 Minutes Intravenous Once 04/04/25195804/05/25 0012 Review of Systems: See HPI Physical Exam: Vital Signs Temp (24hrs), Av ??F (37.2 ??C), Min:98 ??F (36.7 ??C), Max:100.4 ??F (38 ??C) Temp Min: 98 ??F (36.7 ??C) Max: 100.4 ??F (38 ??C) BP Min: 97/50 Max: 134/78 Pulse Min: 59 Max: 96 Resp Min: 16 Max: 18 SpO2 Min: 91 % Max: 97 % GENERAL: Awake and alert, in moderate distress, pulling covers off c/o feeling hot HEENT: Normocephalic, atraumatic. PERRL. EOMI. No conjunctival injection. No icterus. NECK: Supple . HEART: RRR; No murmur, rubs, gallops. LUNGS: Coarse auscultation bilaterally without wheezing, rales, rhonchi. Normal respiratory effort.Nonlabored. ABDOMEN: Soft, nontender, nondistended. No rebound or guarding. NO mass or HSM. EXT: He has marked improvement in the right popliteal fossa rash.. he has no erythema over the BKA stump but there is still some swelling, fluctuance, and tenderness laterally. : Without Shoemaker catheter. MSK: No joint effusions or erythema SKIN: No diffuse rash. NEURO: Oriented to PPT. Motor 5/5 strength PSYCHIATRIC: Normal insight and judgment. Cooperative with PE Laboratory Data Results from last 7 days Lab Units 04/06/25 0341 04/05/25 0354 04/04/25 1447 WBC 10*3/mm3 10.86* 11.18* 12.72* HEMOGLOBIN g/dL 13.9 13.9 15.3 HEMATOCRIT % 43.7 42.4 47.9 PLATELETS 10*3/mm3 115* 160 232 Results from last 7 days Lab Units 04/06/25 1916 04/06/25 0342 SODIUM mmol/L -- 138 POTASSIUM mmol/L 4.0 3.6 CHLORIDE mmol/L -- 103 CO2 mmol/L -- 24.2 BUN mg/dL -- 12.8 CREATININE mg/dL -- 0.80 GLUCOSE mg/dL -- 94 CALCIUM mg/dL -- 8.0* Results from last 7 days Lab Units 04/04/25 1447 ALK PHOS U/L 106 BILIRUBIN mg/dL 1.0 ALT (SGPT) U/L 26 AST (SGOT) U/L 25 Results from last 7 days Lab Units 04/04/25 1447 SED RATE mm/hr 51* Results from last 7 days Lab Units 04/04/25 1447 CRP mg/dL 8.57* Results from last 7 days Lab Units 04/05/25 1215 CK TOTAL U/L 140 Estimated Creatinine Clearance: 164.7 mL/min (by C-G formula based on SCr of 0.8 mg/dL). Microbiology: No results found for: ACANTHNAEG , AFBCX , BPERTUSSISCX , BLOODCX No results found for: BCIDPCR , CXREFLEX , CSFCX , CULTURETIS No results found for: CULTURES , HSVCX , URCX No results found for: EYECULTURE , GCCX , HSVCULTURE , LABHSV No results found for: LEGIONELLA , MRSACX , MUMPSCX , MYCOPLASCX No results found for: NOCARDIACX , STOOLCX No results found for: THROATCX , UNSTIMCULT , URINECX , CULTURE , VZVCULTUR No results found for: VIRALCULTU , WOUNDCX Radiology: Imaging Results (Last 72 Hours) Procedure Component Value Units Date/Time MRI Tibia Fibula Right With & Without Contrast - In process [[id number]] Resulted: 04/07/25828 Updated: 04/07/25828 This result has not been signed. Information might be incomplete. MRI Tibia Fibula Right With & Without Contrast [[id number]] Collected: 04/04/252256 Updated: 04/04/252302 Narrative: MRI TIBIA FIBULA RIGHT W WO CONTRAST Date of Exam: 04/04/2025 5:26 PM EDT Indication: right BKA amputation with pain, swelling, infx? fluid collection. Comparison: None available. Technique: Routine multiplanar/multisequence images of the right tibia and fibula were obtained before and after the uneventful intravenous administration of Vueway. Findings: Postsurgical changes are seen related to below-knee amputation. Soft tissue swelling is seen along the resection margin with diffuse skin thickening. This extends along the anterior aspect of the tibia. No focal collection identified. Mild enhancement is seen corresponding to this region diffusely. No drainable collection identified. There is a small patchy area of hypoattenuation present which may represent a small area of phlegmonous change ([id number] image 10) measuring approximately 1.6 cm which appears linear (series 15 image 37). The tibial stump demonstrates no significant edema or enhancement. No definite periosteal changes identified. Fibular resection margin appears unremarkable. Thereis no knee joint effusion. Musculature appears unremarkable with no evidence of focal atrophy. Impression: Impression: Postsurgical changes related to below-knee amputation with soft tissue swelling and skin thickeningseen along the resection margin extending along the anterior aspect of the tibia consistent with cellulitis. There is a small patchy area of hypoattenuation present which may represent a small area of phlegmonous change. No drainable collection identified. No definite osseous edema identified to suggest osteomyelitis. No knee joint effusion. 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 (Treated by ID in [place] Dr. Harris). Dr. Torres treated him with very prolonged intravenousantibiotic therapy followed by a year of oral doxycycline due to concern about potential for relapse. His stump cellulitis is markedly better but he still has an area of fluctuance and tenderness suggestive of a possible abscess. Right leg dermatitis-he has significant right posterior knee dermatitis which is improving on Lotrisone. 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 HTN HLD Mood disorder PLAN/RECOMMENDATIONS: 1. Intravenous daptomycin 2. Continue ceftriaxone 3. Possible surgical intervention per Dr. Dean This visit included the following complex service elements: Complex medical decision-making associated with antimicrobial prescribing. In-depth chart review with high level synthesis for complex diagnoses. Managed infection treatment protocol associated with transitions of care for this complex patient. Carlton Mead MD 04/07/2025 08:47 EDT * Sushil Dean Jr., MD - 04/07/2025 6:07 AM EDT Images from the original note were not included. Won Dennis LOS: 3 days Patient Care Team: Provider, No Known as PCP - General Chief Complaint: Right below-knee amputation cellulitis Subjective Interval History: Says his leg pain is continuing to improve, but has predominantly lateral sided pain. Had subjective fevers again overnight. Review of Systems: Gen-complains of subjective fevers CV- No chest pain, palpitations Resp- No cough, dyspnea GI- No N/V/D, abd pain Objective Vital Signs Vital Signs (last 24 hours) 04/05 0700 04/06 0659 04/06 0700 04/06 1233 Most Recent Temp (??F) 98.5 - 100.9 98.8 98.8 (37.1) 04/06 0858 Heart Rate 60 - 100 87 87 04/06 0858 Resp 16 - 18 18 18 04/06 0858 BP 110/62 - 122/75 120/69 120/69 04/06 0858 SpO2 (%) 88 - 94 90 04/06 0420 Physical Exam: Alert, oriented. No acute distress. Nonlabored respirations. Regular rate and rhythm. Abdomen nondistended. Right lower extremity: Cellulitis continues to improve, mild warmth. Results Review: I reviewed the patient's new clinical results. Medication Review: Hospital Medications (active) Dose Frequency Start End acetaminophen (TYLENOL) 160 MG/5ML oral solution 500 mg 500 mg Every 6 Hours PRN 04/04/2025 -- Admin Instructions: If given for fever, use fever parameter: fever greater than 100.4 ??F Based on patient request - if ordered for moderate or severe pain, provider allows for administration of a medication prescribed for a lower pain scale. Do not exceed 4 grams of acetaminophen in a 24 hr period. Max dose of 2gm for AST/ALT greater than 120 units/L. If given for pain, use the following pain scale: Mild Pain = Pain Score of 1-3, CPOT 1-2 Moderate Pain = Pain Score of 4-6, CPOT 3-4 Severe Pain = Pain Score of 7-10, CPOT 5-8 Route: Oral Linked Group 1: Placed in Or Linked Group acetaminophen (TYLENOL) suppository 325 mg 325 mg Every 6 Hours PRN 04/04/2025 -- Admin Instructions: If given for fever, use fever parameter: fever greater than 100.4 ??F Based on patient request - if ordered for moderate or severe pain, provider allows for administration of a medication prescribed for a lower pain scale. Do not exceed 4 grams of acetaminophen in a 24 hr period. Max dose of 2gm for AST/ALT greater than 120 units/L. If given for pain, use the following pain scale: Mild Pain = Pain Score of 1-3, CPOT 1-2 Moderate Pain = Pain Score of 4-6, CPOT 3-4 Severe Pain = Pain Score of 7-10, CPOT 5-8 Route: Rectal Linked Group 1: Placed in Or Linked Group acetaminophen (TYLENOL) tablet 500 mg 500 mg Every 6 Hours PRN 04/04/2025 -- Admin Instructions: If given for fever, use fever parameter: fever greater than 100.4 ??F Based on patient request - if ordered for moderate or severe pain, provider allows for administration of a medication prescribed for a lower pain scale. Do not exceed 4 grams of acetaminophen in a 24 hr period. Max dose of 2gm for AST/ALT greater than 120 units/L. If given for pain, use the following pain scale: Mild Pain = Pain Score of 1-3, CPOT 1-2 Moderate Pain = Pain Score of 4-6, CPOT 3-4 Severe Pain = Pain Score of 7-10, CPOT 5-8 Route: Oral Linked Group 1: Placed in Or Linked Group atorvastatin (LIPITOR) tablet 40 mg 40 mg Nightly 04/04/2025 -- Admin Instructions: Avoid grapefruit juice. Route: Oral bisacodyl (DULCOLAX) EC tablet 5 mg 5 mg Daily PRN 04/04/2025 -- Admin Instructions: Use if no bowel movement after 12 hours. Swallow whole. Do not crush, split, or chew tablet. Route: Oral Linked Group 2: Placed in And Linked Group bisacodyl (DULCOLAX) suppository 10 mg 10 mg Daily PRN 04/04/2025 -- Admin Instructions: Use if no bowel movement after 12 hours. Hold for diarrhea Route: Rectal Linked Group 2: Placed in And Linked Group Calcium Replacement - Follow Nurse / BPA Driven Protocol As Needed 04/04/2025 -- Admin Instructions: Open Order & Select S Electrolyte Replacement Protocol Algorithm to View Details Route: Not Applicable cefTRIAXone (ROCEPHIN) 2,000 mg in sodium chloride 0.9 % 100 mL MBP 2,000 mg Every 24 Hours 04/05/2025 04/16/2025 Admin Instructions: LR should be paused and flushing of the line with NS is recommended prior to and after completion of ceftriaxone infusion due to incompatibility. Do not co-adminster with calcium-containing solutions. Caution: Look alike/sound alike drug alert Route: Intravenous clotrimazole-betamethasone (LOTRISONE) 1-0.05 % cream 1 Application 1 Application Every 12 Hours Scheduled 04/05/2025 04/12/2025 Admin Instructions: Apply to posterior thigh to rash. Route: Topical DAPTOmycin (CUBICIN) 800 mg in sodium chloride 0.9 % 50 mL IVPB 8 mg/kg ?? 98.8 kg (Adjusted) Every24 Hours 04/06/2025 04/16/2025 Admin Instructions: Caution: Look alike/sound alike drug alert. Refrigerate. Do not shake. Route: Intravenous ferrous sulfate tablet 325 mg 325 mg 2 Times Daily 04/04/2025 -- Admin Instructions: Swallow whole. Do not crush, split, or chew. Take with food if GI upset occurs. Route: Oral furosemide (LASIX) tablet 20 mg 20 mg Daily 04/05/2025 -- Route: Oral heparin 26801 units/250 mL (100 units/mL) in 0.45 % NaCl infusion 16 Units/kg/hr ?? 134 kg Titrated04/05/2025 -- Admin Instructions: Pharmacy dosing - VTE (PE/DVT) - Boluses (No initial bolus) Route: Intravenous hydroCHLOROthiazide tablet 12.5 mg 12.5 mg Daily 04/05/2025 -- Admin Instructions: Caution: Look alike/sound alike drug alert Route: Oral HYDROmorphone (DILAUDID) injection 0.5 mg 0.5 mg Every 2 Hours PRN 04/04/2025 04/09/2025 Admin Instructions: Based on patient request - if ordered for moderate or severe pain, provider allows for administration of a medication prescribed for a lower pain scale. If given for pain, use the following pain scale: Mild Pain = Pain Score of 1-3, CPOT 1-2 Moderate Pain = Pain Score of 4-6, CPOT 3-4 Severe Pain = Pain Score of 7-10, CPOT 5-8 Route: Intravenous Magnesium Standard Dose Replacement - Follow Nurse / BPA Driven Protocol As Needed 04/04/2025 -- Admin Instructions: Open Order & Select [facility] Electrolyte Replacement Protocol Algorithm to View Details Route: Not Applicable nitroglycerin (NITROSTAT) SL tablet 0.4 mg 0.4 mg Every 5 Minutes PRN 04/04/2025 -- Admin Instructions: If Pain Unrelieved After 3 Doses Notify MD May administer up to 3 doses per episode. Hold if SBP less than 100. Route: Sublingual ondansetron ODT (ZOFRAN-ODT) disintegrating tablet 4 mg 4 mg Every 6 Hours PRN 04/06/2025 -- Admin Instructions: If multiple N/V medications ordered, use in the following order: Ondansetron, Prochlorperazine, Promethazine. Use PO unless patient refuses or patient unable to swallow. Place on tongue and allow to dissolve. Route: Translingual oxybutynin XL (DITROPAN-XL) 24 hr tablet 10 mg 10 mg Nightly 04/04/2025 -- Admin Instructions: Do not crush or chew the capsules or tablets. The drug may not work as designedif the capsule or tablet is crushed or chewed. Swallow whole. Route: Oral Pharmacy to Dose Heparin Continuous PRN 04/04/2025 -- Route: Not Applicable Phosphorus Replacement - Follow Nurse / BPA Driven Protocol As Needed 04/04/2025 -- Admin Instructions: Open Order & Select [facility] Electrolyte Replacement Protocol Algorithm to View Details Route: Not Applicable polyethylene glycol (MIRALAX) packet 17 g 17 g Daily PRN 04/04/2025 -- Admin Instructions: Use if no bowel movement after 12 hours. Mix in 6-8 ounces of water. Use 4-8 ounces of water, tea, or juice for each 17 gram dose. Route: Oral Linked Group 2: Placed in And Linked Group potassium chloride (KLOR-CON M20) CR tablet 40 mEq 40 mEq Every 4 Hours 04/06/2025 04/06/2025 Admin Instructions: Do not crush or chew the capsules or tablets. The drug may not work as designedif the capsule or tablet is crushed or chewed. Swallow whole. Take with food. Route: Oral Potassium Replacement - Follow Nurse / BPA Driven Protocol As Needed 04/04/2025 -- Admin Instructions: Open Order & Select [facility] Electrolyte Replacement Protocol Algorithm to View Details Route: Not Applicable saccharomyces boulardii (FLORASTOR) capsule 250 mg 250 mg 2 Times Daily 04/04/2025 -- Route: Oral sennosides-docusate (PERICOLACE) 8.6-50 MG per tablet 2 tablet 2 tablet 2 Times Daily PRN 04/04/2025-- Admin Instructions: Start bowel management regimen if patient has not had a bowel movement after 12hours. Route: Oral Linked Group 2: Placed in And Linked Group sertraline (ZOLOFT) tablet 100 mg 100 mg Nightly 04/04/2025 -- Route: Oral sodium chloride 0.9 % flush 10 mL 10 mL As Needed 04/04/2025 -- Route: Intravenous Linked Group 3: Placed in And Linked Group sodium chloride 0.9 % flush 10 mL 10 mL Every 12 Hours Scheduled 04/04/2025 -- Route: Intravenous sodium chloride 0.9 % flush 10 mL 10 mL As Needed 04/04/2025 -- Route: Intravenous sodium chloride 0.9 % infusion 40 mL 40 mL As Needed 04/04/2025 -- Admin Instructions: Following administration of an IV intermittent medication, flush line with 40mLNS at 100mL/hr. Route: Intravenous tamsulosin (FLOMAX) 24 hr capsule 0.4 mg 0.4 mg Nightly 04/04/2025 -- Admin Instructions: Do not crush or chew the capsules or tablets. The drug may not work as designedif the capsule or tablet is crushed or chewed. Swallow whole. If patient unable to swallow whole, contact pharmacy for alternative. Route: Oral valsartan (DIOVAN) tablet 40 mg 40 mg Every 24 Hours Scheduled 04/05/2025 -- Admin Instructions: Hold for SBP less than 100, DBP less than 60, or heart rate less than 50. If a dose is held, please contact the provider. Route: Oral Assessment & Plan 44-year-old male status post right below-knee amputation, history of MRSA osteomyelitis, with rightbelow-knee amputation stump cellulitis. Right BKA infection He seems to have more or less plateaued clinically. Plan to repeat MRI with and without contrast toevaluate for progression, specifically whether the fluid collection is developing. N.p.o. beginningat 9 AM. Sushil Dean Jr, MD 04/07/25 06:07 EDT * Cherri Beatty [facility] - 04/06/2025 1:47 PM EDT Pharmacy to Dose Heparin Infusion Note Won Dennis is a 44 y.o. male receiving heparin infusion. Therapy for (VTE/Cardiac): VTE (Full anticoagulation for factor II mutation) Patient Weight: 134 kg Initial Bolus (Y/N): No Any Bolus (Y/N): Yes Signs or Symptoms of Bleeding: None currently VTE (PE/DVT) Initial rate: 18 units/kg/hr (Max 1,500 units/hr) Anti-Xa Bolus Dose Infusion Hold Time Infusion Rate Change (units/kg/hr) Repeat Anti-Xa < 0.11 50 units/kg (4000 units Max) None Increase by 4 units/kg/hr 6 hours 0.11 - 0.19 25 units/kg (2000 units Max) None Increase by 3 units/kg/hr 6 hours 0.2 - 0.29 0 None Increase by 2 units/kg/hr 6 hours 0.3 - 0.7 0 None No Change 6 hours (after 2 consecutive levels in range check qAM) 0.71 - 0.8 0 None Decrease by 1 units/kg/hr 6 hours 0.81 - 0.9 0 None Decrease by 2 units/kg/hr 6 hours 0.91 - 1 0 60 minutes Decrease by 3 units/kg/hr 6 hours >1 0 Hold After Anti-Xa less than 0.7 decrease previous rate by 4 units/kg/hr Every 2 hours until Anti-Xa less than 0.7 then when infusion restarts in 6 hours Results from last 7 days Lab Units 04/06/25 0341 04/05/25 0354 04/05/25 0018 04/04/25 1447 INR -- -- 1.19* -- HEMOGLOBIN g/dL 13.9 13.9 -- 15.3 HEMATOCRIT % 43.7 42.4 -- 47.9 PLATELETS 10*3/mm3 115* 160 -- 232 Date Time Anti-Xa Current Rate (units/kg/hr) Bolus (units) Rate Change (units/kg/hr) New Rate (units/kg/hr) Repeat Anti-Xa Comments / Pump Check 04/05 0000 Pending New start -- +11 11 0600 RN Mary. 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 04/05 0500 0.30 11 -- -- 11 1200 RN 04/05 1215 0.17 11 1999 +3 14 2100 DW RN Pump checked 04/05 2043 0.38 14 -- -- 14 0300 RN 04/06 0530 0.25 14 -- +2 16 1200 DW RN Mary 04/06 1236 0.24 16 -- +2 18 1999 DW LU Beatty RPH 04/06/2025 13:48 EDT * Jason Álvarez DO - 04/06/2025 12:47 PM EDT Images from the original note were not included. [facility] Medicine Services PROGRESS NOTE Patient Name: Won Dennis : 1980 Date of Admission: 04/04/2025 Primary Care Physician: Provider, No Known Subjective Subjective CC: Right BKA cellulitis HPI: Patient seen resting comfortably in bed in no acute distress. Continues to report swelling of rightBKA. States he is eating well. Reports minimal pain. Objective Objective Vital Signs: Temp: [98.5 ??F (36.9 ??C)-100.9 ??F (38.3 ??C)] 98.8 ??F (37.1 ??C) Heart Rate: [60-87] 87 Resp: [16-18] 18 BP: (110-122)/(60-75) 120/69 Physical Exam Constitutional: General: He is not in acute distress. Cardiovascular: Rate and Rhythm: Normal rate. Pulses: Normal pulses. Pulmonary: Effort: Pulmonary effort is normal. No respiratory distress. Abdominal: General: There is no distension. Palpations: Abdomen is soft. Tenderness: There is no abdominal tenderness. There is no guarding or rebound. Musculoskeletal: General: Swelling present. Comments: Right BKA Skin: General: Skin is warm. Findings: Erythema present. Neurological: Mental Status: He is alert and oriented to person, place, and time. Psychiatric: Mood and Affect: Mood normal. Behavior: Behavior normal. Results Reviewed: LAB RESULTS: Lab 04/06/25 0341 04/05/25 0354 04/05/25 0018 04/04/25 1447 WBC 10.86* 11.18* -- 12.72* HEMOGLOBIN 13.9 13.9 -- 15.3 HEMATOCRIT 43.7 42.4 -- 47.9 PLATELETS 115* 160 -- 232 NEUTROS ABS 7.09* 8.23* -- 9.52* IMMATURE GRANS (ABS) 0.03 0.04 -- 0.03 LYMPHS ABS 2.23 1.56 -- 1.66 MONOS ABS 1.28* 1.23* -- 1.43* EOS ABS 0.20 0.09 -- 0.05 MCV 86.0 84.8 -- 84.9 SED RATE -- -- -- 51* CRP -- -- -- 8.57* PROTIME -- -- 15.9* -- APTT -- 35.3* 33.6* -- Lab 04/06/25 0342 04/05/25 0354 04/04/25 1447 SODIUM 138 136 136 POTASSIUM 3.6 3.9 3.8 CHLORIDE 103 103 100 CO2 24.2 24.0 25.3 ANION GAP 10.8 9.0 10.7 BUN 12.8 17.3 18.3 CREATININE 0.80 0.92 0.94 EGFR 111.9 105.2 102.5 GLUCOSE 94 152* 90 CALCIUM 8.0* 7.8* 8.6 Lab 04/04/25 1447 TOTAL PROTEIN 7.3 ALBUMIN 4.1 GLOBULIN 3.2 ALT (SGPT) 26 AST (SGOT) 25 BILIRUBIN 1.0 ALK PHOS 106 Lab 04/05/25 0018 PROTIME 15.9* INR 1.19* Brief Urine Lab Results None Microbiology Results Abnormal None MRI Tibia Fibula Right With & Without Contrast Result Date: 04/04/2025 MRI TIBIA FIBULA RIGHT W WO CONTRAST Date of Exam: 04/04/2025 5:26 PM EDT Indication: right BKA amputation with pain, swelling, infx? fluid collection. Comparison: None available. Technique: Routine multiplanar/multisequence images of the right tibia and fibula were obtained before and after the uneventful intravenous administration of Vueway. Findings: Postsurgical changes are seen related to below-knee amputation. Soft tissue swelling is seen along the resection margin with diffuse skin thickening. This extends along the anterior aspect of the tibia. No focal collection identified. Mild enhancement is seen corresponding to this region diffusely. No drainable collection identified. There johanne small patchy area of hypoattenuation present which may represent a small area of phlegmonous change (series 19 image 10) measuring approximately 1.6 cm which appears linear (series 15 image 37). The tibial stump demonstrates no significant edema or enhancement. No definite periosteal changes identified. Fibular resection margin appears unremarkable. There is no knee joint effusion. Musculature appears unremarkable with no evidence of focal atrophy. Impression: Impression: Postsurgical changes related to below-knee amputation with soft tissue swelling and skin thickening seen along the resection margin extending along the anterior aspect of the tibia consistent with cellulitis. There is a small patchy area of hypoattenuation present which may represent a small area of phlegmonous change. No drainable collection identified. No definite osseous edema identified to suggest osteomyelitis. No knee joint effusion. Electronically Signed: Leigh Jones MD 04/04/2025 11:00 PM EDT Workstation ID: [id number] I have personally reviewed the therapy plans: [] PT/OT/ ST Therapy Plans Current medications: Scheduled Meds:atorvastatin, 40 mg, Oral, Nightly cefTRIAXone, 2,000 mg, Intravenous, Q24H clotrimazole-betamethasone, 1 Application, Topical, Q12H DAPTOmycin, 8 mg/kg (Adjusted), Intravenous, Q24H ferrous sulfate, 325 mg, Oral, BID furosemide, 20 mg, Oral, Daily hydroCHLOROthiazide Oral, 12.5 mg, Oral, Daily oxybutynin XL, 10 mg, Oral, Nightly potassium chloride ER, 40 mEq, Oral, Q4H saccharomyces boulardii, 250 mg, Oral, BID sertraline, 100 mg, Oral, Nightly sodium chloride, 10 mL, Intravenous, Q12H tamsulosin, 0.4 mg, Oral, Nightly valsartan, 40 mg, Oral, Q24H Continuous Infusions:heparin, 16 Units/kg/hr, Last Rate: 16 Units/kg/hr (04/06/25 0604) Pharmacy to Dose Heparin, PRN Meds:. acetaminophen OR acetaminophen OR acetaminophen senna-docusate sodium AND polyethylene glycol AND bisacodyl AND bisacodyl Calcium Replacement - Follow Nurse / BPA Driven Protocol HYDROmorphone Magnesium Standard Dose Replacement - Follow Nurse / BPA Driven Protocol nitroglycerin ondansetron ODT Pharmacy to Dose Heparin Phosphorus Replacement - Follow Nurse / BPA Driven Protocol Potassium Replacement - Follow Nurse / BPA Driven Protocol [COMPLETED] Insert Peripheral IV AND sodium chloride sodium chloride sodium chloride Assessment & Plan Assessment & Plan Active Hospital Problems Diagnosis POA 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 Brief Hospital Course to date: Won Dennis is a 44 y.o. 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 MRI concerning for cellulitis. Orthopedic surgery and infectious disease consulted. Right BKA cellulitis -Patient presenting with 2 to 3 days of right BKA swelling, erythema and pain -MRI RLE revealing cellulitis, no obvious signs of OM or drainable fluid collection -Orthopedic surgery consulted, no indication for surgical intervention at this time. Possible repeat MRI in AM if no improvement. -Infectious disease consulted, continue daptomycin and ceftriaxone -PT/OT = home Factor II deficiency -Holding Eliquis for now. Continue heparin drip. HTN HLD -Continue HCTZ 12.5 mg, lasix 20mg, and Valsartan 40 mg -Continue statin Mood disorder -Continue Sertraline BPH -continue home medications Expected Discharge Location and Transportation: Home Expected Discharge Expected discharge date/ time has not been documented. VTE Prophylaxis: Pharmacologic & mechanical VTE prophylaxis orders are present. AM-PAC 6 Clicks Score (PT): 23 (04/06/25 1147) CODE STATUS: Code Status and Medical Interventions: CPR (Attempt to Resuscitate); Full Support Ordered at: 04/04/252047 Code Status (Patient has no pulse and is not breathing): CPR (Attempt to Resuscitate) Medical Interventions (Patient has pulse or is breathing): Full Support Level Of Support Discussed With: Patient Jason Álvarez DO 04/06/25 * Sushil Dean Jr., MD - 04/06/2025 12:33 PM EDT Images from the original note were not included. Won Dnenis LOS: 2 days Patient Care Team: Provider, No Known as PCP - General Chief Complaint: Right below-knee amputation cellulitis Subjective Interval History: Says his leg pain is continuing to improve. Had subjective fevers overnight. Review of Systems: Gen-complains of subjective fevers CV- No chest pain, palpitations Resp- No cough, dyspnea GI- No N/V/D, abd pain Objective Vital Signs Vital Signs (last 24 hours) 04/05 0700 04/06 0659 04/06 0704/06 1233 Most Recent Temp (??F) 98.5 - 100.9 98.8 98.8 (37.1) 04/06 08 Heart Rate 60 - 100 87 87 04/06 08 Resp 16 - 18 18 18 04/06 08 BP 110/62 - 122/75 120/69 120/69 04/06 08 SpO2 (%) 88 - 94 90 04/06 0420 Physical Exam: Alert, oriented. No acute distress. Nonlabored respirations. Regular rate and rhythm. Abdomen nondistended. Right lower extremity: Cellulitis continues to improve, mild warmth. Results Review: I reviewed the patient's new clinical results. Medication Review: Hospital Medications (active) Dose Frequency Start End acetaminophen (TYLENOL) 160 MG/5ML oral solution 500 mg 500 mg Every 6 Hours PRN 04/04/2025 -- Admin Instructions: If given for fever, use fever parameter: fever greater than 100.4 ??F Based on patient request - if ordered for moderate or severe pain, provider allows for administration of a medication prescribed for a lower pain scale. Do not exceed 4 grams of acetaminophen in a 24 hr period. Max dose of 2gm for AST/ALT greater than 120 units/L. If given for pain, use the following pain scale: Mild Pain = Pain Score of 1-3, CPOT 1-2 Moderate Pain = Pain Score of 4-6, CPOT 3-4 Severe Pain = Pain Score of 7-10, CPOT 5-8 Route: Oral Linked Group 1: Placed in Or Linked Group acetaminophen (TYLENOL) suppository 325 mg 325 mg Every 6 Hours PRN 04/04/2025 -- Admin Instructions: If given for fever, use fever parameter: fever greater than 100.4 ??F Based on patient request - if ordered for moderate or severe pain, provider allows for administration of a medication prescribed for a lower pain scale. Do not exceed 4 grams of acetaminophen in a 24 hr period. Max dose of 2gm for AST/ALT greater than 120 units/L. If given for pain, use the following pain scale: Mild Pain = Pain Score of 1-3, CPOT 1-2 Moderate Pain = Pain Score of 4-6, CPOT 3-4 Severe Pain = Pain Score of 7-10, CPOT 5-8 Route: Rectal Linked Group 1: Placed in Or Linked Group acetaminophen (TYLENOL) tablet 500 mg 500 mg Every 6 Hours PRN 04/04/2025 -- Admin Instructions: If given for fever, use fever parameter: fever greater than 100.4 ??F Based on patient request - if ordered for moderate or severe pain, provider allows for administration of a medication prescribed for a lower pain scale. Do not exceed 4 grams of acetaminophen in a 24 hr period. Max dose of 2gm for AST/ALT greater than 120 units/L. If given for pain, use the following pain scale: Mild Pain = Pain Score of 1-3, CPOT 1-2 Moderate Pain = Pain Score of 4-6, CPOT 3-4 Severe Pain = Pain Score of 7-10, CPOT 5-8 Route: Oral Linked Group 1: Placed in Or Linked Group atorvastatin (LIPITOR) tablet 40 mg 40 mg Nightly 04/04/2025 -- Admin Instructions: Avoid grapefruit juice. Route: Oral bisacodyl (DULCOLAX) EC tablet 5 mg 5 mg Daily PRN 04/04/2025 -- Admin Instructions: Use if no bowel movement after 12 hours. Swallow whole. Do not crush, split, or chew tablet. Route: Oral Linked Group 2: Placed in And Linked Group bisacodyl (DULCOLAX) suppository 10 mg 10 mg Daily PRN 04/04/2025 -- Admin Instructions: Use if no bowel movement after 12 hours. Hold for diarrhea Route: Rectal Linked Group 2: Placed in And Linked Group Calcium Replacement - Follow Nurse / BPA Driven Protocol As Needed 04/04/2025 -- Admin Instructions: Open Order & Select [facility] Electrolyte Replacement Protocol Algorithm to View Details Route: Not Applicable cefTRIAXone (ROCEPHIN) 2,000 mg in sodium chloride 0.9 % 100 mL MBP 2,000 mg Every 24 Hours 04/05/2025 04/16/2025 Admin Instructions: LR should be paused and flushing of the line with NS is recommended prior to and after completion of ceftriaxone infusion due to incompatibility. Do not co-adminster with calcium-containing solutions. Caution: Look alike/sound alike drug alert Route: Intravenous clotrimazole-betamethasone (LOTRISONE) 1-0.05 % cream 1 Application 1 Application Every 12 Hours Scheduled 04/05/2025 04/12/2025 Admin Instructions: Apply to posterior thigh to rash. Route: Topical DAPTOmycin (CUBICIN) 800 mg in sodium chloride 0.9 % 50 mL IVPB 8 mg/kg ?? 98.8 kg (Adjusted) Every24 Hours 04/06/2025 04/16/2025 Admin Instructions: Caution: Look alike/sound alike drug alert. Refrigerate. Do not shake. Route: Intravenous ferrous sulfate tablet 325 mg 325 mg 2 Times Daily 04/04/2025 -- Admin Instructions: Swallow whole. Do not crush, split, or chew. Take with food if GI upset occurs. Route: Oral furosemide (LASIX) tablet 20 mg 20 mg Daily 04/05/2025 -- Route: Oral heparin 13080 units/250 mL (100 units/mL) in 0.45 % NaCl infusion 16 Units/kg/hr ?? 134 kg Titrated04/05/2025 -- Admin Instructions: Pharmacy dosing - VTE (PE/DVT) - Boluses (No initial bolus) Route: Intravenous hydroCHLOROthiazide tablet 12.5 mg 12.5 mg Daily 04/05/2025 -- Admin Instructions: Caution: Look alike/sound alike drug alert Route: Oral HYDROmorphone (DILAUDID) injection 0.5 mg 0.5 mg Every 2 Hours PRN 04/04/2025 04/09/2025 Admin Instructions: Based on patient request - if ordered for moderate or severe pain, provider allows for administration of a medication prescribed for a lower pain scale. If given for pain, use the following pain scale: Mild Pain = Pain Score of 1-3, CPOT 1-2 Moderate Pain = Pain Score of 4-6, CPOT 3-4 Severe Pain = Pain Score of 7-10, CPOT 5-8 Route: Intravenous Magnesium Standard Dose Replacement - Follow Nurse / BPA Driven Protocol As Needed 04/04/2025 -- Admin Instructions: Open Order & Select S Electrolyte Replacement Protocol Algorithm to View Details Route: Not Applicable nitroglycerin (NITROSTAT) SL tablet 0.4 mg 0.4 mg Every 5 Minutes PRN 04/04/2025 -- Admin Instructions: If Pain Unrelieved After 3 Doses Notify MD May administer up to 3 doses per episode. Hold if SBP less than 100. Route: Sublingual ondansetron ODT (ZOFRAN-ODT) disintegrating tablet 4 mg 4 mg Every 6 Hours PRN 04/06/2025 -- Admin Instructions: If multiple N/V medications ordered, use in the following order: Ondansetron, Prochlorperazine, Promethazine. Use PO unless patient refuses or patient unable to swallow. Place on tongue and allow to dissolve. Route: Translingual oxybutynin XL (DITROPAN-XL) 24 hr tablet 10 mg 10 mg Nightly 04/04/2025 -- Admin Instructions: Do not crush or chew the capsules or tablets. The drug may not work as designedif the capsule or tablet is crushed or chewed. Swallow whole. Route: Oral Pharmacy to Dose Heparin Continuous PRN 04/04/2025 -- Route: Not Applicable Phosphorus Replacement - Follow Nurse / BPA Driven Protocol As Needed 04/04/2025 -- Admin Instructions: Open Order & Select [facility] Electrolyte Replacement Protocol Algorithm to View Details Route: Not Applicable polyethylene glycol (MIRALAX) packet 17 g 17 g Daily PRN 04/04/2025 -- Admin Instructions: Use if no bowel movement after 12 hours. Mix in 6-8 ounces of water. Use 4-8 ounces of water, tea, or juice for each 17 gram dose. Route: Oral Linked Group 2: Placed in And Linked Group potassium chloride (KLOR-CON M20) CR tablet 40 mEq 40 mEq Every 4 Hours 04/06/2025 04/06/2025 Admin Instructions: Do not crush or chew the capsules or tablets. The drug may not work as designedif the capsule or tablet is crushed or chewed. Swallow whole. Take with food. Route: Oral Potassium Replacement - Follow Nurse / BPA Driven Protocol As Needed 04/04/2025 -- Admin Instructions: Open Order & Select S Electrolyte Replacement Protocol Algorithm to View Details Route: Not Applicable saccharomyces boulardii (FLORASTOR) capsule 250 mg 250 mg 2 Times Daily 04/04/2025 -- Route: Oral sennosides-docusate (PERICOLACE) 8.6-50 MG per tablet 2 tablet 2 tablet 2 Times Daily PRN 04/04/2025-- Admin Instructions: Start bowel management regimen if patient has not had a bowel movement after 12hours. Route: Oral Linked Group 2: Placed in And Linked Group sertraline (ZOLOFT) tablet 100 mg 100 mg Nightly 04/04/2025 -- Route: Oral sodium chloride 0.9 % flush 10 mL 10 mL As Needed 04/04/2025 -- Route: Intravenous Linked Group 3: Placed in And Linked Group sodium chloride 0.9 % flush 10 mL 10 mL Every 12 Hours Scheduled 04/04/2025 -- Route: Intravenous sodium chloride 0.9 % flush 10 mL 10 mL As Needed 04/04/2025 -- Route: Intravenous sodium chloride 0.9 % infusion 40 mL 40 mL As Needed 04/04/2025 -- Admin Instructions: Following administration of an IV intermittent medication, flush line with 40mLNS at 100mL/hr. Route: Intravenous tamsulosin (FLOMAX) 24 hr capsule 0.4 mg 0.4 mg Nightly 04/04/2025 -- Admin Instructions: Do not crush or chew the capsules or tablets. The drug may not work as designedif the capsule or tablet is crushed or chewed. Swallow whole. If patient unable to swallow whole, contact pharmacy for alternative. Route: Oral valsartan (DIOVAN) tablet 40 mg 40 mg Every 24 Hours Scheduled 04/05/2025 -- Admin Instructions: Hold for SBP less than 100, DBP less than 60, or heart rate less than 50. If a dose is held, please contact the provider. Route: Oral Assessment & Plan 44-year-old male status post right below-knee amputation, history of MRSA osteomyelitis, with rightbelow-knee amputation stump cellulitis. Right BKA infection His leukocytosis and clinical symptoms have improved. Plan to continue expectant observation. Wouldrepeat MRI tomorrow if he does not continue to improve. Sushil Dean Jr, MD 04/06/25 12:33 EDT * Carlton Mead MD - 04/06/2025 7:51 AM EDT Images from the original note were not included. INFECTIOUS DISEASE follow up. Won Dennis 1980 [id number] Date of Consult: 04/06/2025 Admission Date: 04/04/2025 Requesting Provider: Evaluating Physician: Dr. Mable Mead MD. 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 He c/o swelling with erythema for several days after a new prosthesis was fitted, which prompted him to seek treatment at [facility]. He is known to Dr. Dean. He denies recent antibiotics. He has an intolerance to keflex, he became severely nauseated with infusion. MRI completed yesterday demonstrates area of hypoatttenuation with small area of phlegmonous change. No osteomyelitis. No knee joint effusion.Denies n/v, or fever. No other symptoms. WBC count 12.7 on admission with sed rate of 51, CRP 8.57.Creatinine normal. No cultures obtained here. Known MRSA from previous wound 05/09/25. HDS, on Heparin gtt. Currently [facility] has been asked to manage the antimicrobials in this patient. 04/06/25: WBC count downtrending. Mild fever 99.2, with TMAX 100..9. The leg looks less erythematous, no pain to examination. Past Medical History: Diagnosis Date Amputation finger Anxiety and depression Asthma Bone spur of right foot CHF (congestive heart failure) Hx of right BKA 2022 Hyperlipidemia Hypertension MRSA (methicillin resistant Staphylococcus aureus) infection 05/09/2023 Right leg wound culture Osteomyelitis PE (pulmonary thromboembolism) Prostate enlargement Sleep apnea Past Surgical History: Procedure Laterality Date AMPUTATION Left left hand, index finger amputated past the first knuckle ANKLE TENDON REPAIR Left BACK SURGERY BELOW KNEE LEG AMPUTATION Right 2022 CARDIAC CATHETERIZATION History reviewed. No pertinent family history. Social History Socioeconomic History Marital status: Unknown Tobacco Use Smoking status: Never Smokeless tobacco: Never Vaping Use Vaping status: Never Used Substance and Sexual Activity Alcohol use: Not Currently Drug use: Never Sexual activity: Defer Allergies Allergen Reactions Ceftin [Cefuroxime] Nausea And Vomiting Keflex [Cephalexin] Nausea And Vomiting Latex Rash Medication: Current Facility-Administered Medications: acetaminophen (TYLENOL) tablet 500 mg, 500 mg, Oral, Q6H PRN, 500 mg at 04/05/25 1740 OR acetaminophen (TYLENOL) 160 MG/5ML oral solution 500 mg, 500 mg, Oral, Q6H PRN, 500 mg at 04/06/25 0036 OR acetaminophen (TYLENOL) suppository 325 mg, 325 mg, Rectal, Q6H PRN, Leonora Sehpherd MD [Held by provider] apixaban (ELIQUIS) tablet 5 mg, 5 mg, Oral, Q12H, Jason Álvarez DO atorvastatin (LIPITOR) tablet 40 mg, 40 mg, Oral, Nightly, Leonora Shepherd MD, 40 mg at 04/05/25 2159 sennosides-docusate (PERICOLACE) 8.6-50 MG per tablet 2 tablet, 2 tablet, Oral, BID PRN AND polyethylene glycol (MIRALAX) packet 17 g, 17 g, Oral, Daily PRN AND bisacodyl (DULCOLAX) EC tablet5 mg, 5 mg, Oral, Daily PRN AND bisacodyl (DULCOLAX) suppository 10 mg, 10 mg, Rectal, Daily PRN, Leonora Shepherd MD budesonide-formoterol (SYMBICORT) 160-4.5 MCG/ACT inhaler 2 puff, 2 puff, Inhalation, BID - RT, Jason Álvarez DO Calcium Replacement - Follow Nurse / BPA Driven Protocol, , Not Applicable, PRN, Leonora Shepherd MD cefTRIAXone (ROCEPHIN) 2,000 mg in sodium chloride 0.9 % 100 mL MBP, 2,000 mg, Intravenous, Q24H, Carlton Mead MD, Last Rate: 200 mL/hr at 04/05/25 2200, 2,000 mg at 04/05/25 2200 clotrimazole-betamethasone (LOTRISONE) 1-0.05 % cream 1 Application, 1 Application, Topical, Q12H, Ayah Valentin, [employer], 1 Application at 04/06/25 0859 DAPTOmycin (CUBICIN) 800 mg in sodium chloride 0.9 % 50 mL IVPB, 8 mg/kg (Adjusted), Intravenous, Q24H, Carlton Mead MD, Last Rate: 100 mL/hr at 04/06/25 1059, 800 mg at 04/06/25 1059 ferrous sulfate tablet 325 mg, 325 mg, Oral, BID, Leonora Shepherd MD, 325 mg at 04/06/25 0859 furosemide (LASIX) tablet 20 mg, 20 mg, Oral, Daily, Leonora Shepherd MD, 20 mg at 04/06/25 0900 heparin 02680 units/250 mL (100 units/mL) in 0.45 % NaCl infusion, 18 Units/kg/hr, Intravenous, Titrated, Cherri Beatty [facility], Last Rate: 24.1 mL/hr at 04/06/25 1420, 18 Units/kg/hr at 04/06/25 1420 hydroCHLOROthiazide tablet 12.5 mg, 12.5 mg, Oral, Daily, Leonora Shepherd MD, 12.5 mg at 859 HYDROmorphone (DILAUDID) injection 0.5 mg, 0.5 mg, Intravenous, Q2H PRN, Leonora Shepherd MD, 0.5 mg at 04/05/25 0036 Magnesium Standard Dose Replacement - Follow Nurse / BPA Driven Protocol, , Not Applicable, PRN, Leonora Shepherd MD nitroglycerin (NITROSTAT) SL tablet 0.4 mg, 0.4 mg, Sublingual, Q5 Min PRN, Leonora Shepherd MD ondansetron ODT (ZOFRAN-ODT) disintegrating tablet 4 mg, 4 mg, Translingual, Q6H PRN, Jason Álvarez DO, 4 mg at 04/06/25 1002 oxybutynin XL (DITROPAN-XL) 24 hr tablet 10 mg, 10 mg, Oral, Nightly, Leonora Shepherd MD, 10 mg at 04/05/252158 Pharmacy to Dose Heparin, , Not Applicable, Continuous PRN, Una Perla, ToñoD Phosphorus Replacement - Follow Nurse / BPA Driven Protocol, , Not Applicable, PRN, Leonora Shepherd MD Potassium Replacement - Follow Nurse / BPA Driven Protocol, , Not Applicable, PRN, Leonora Shepherd MD saccharomyces boulardii (FLORASTOR) capsule 250 mg, 250 mg, Oral, BID, Leonora Shepherd MD, 250 mgat 04/06/25 0859 sertraline (ZOLOFT) tablet 100 mg, 100 mg, Oral, Nightly, Leonora Shepherd MD, 100 mg at 04/05/252158 [COMPLETED] Insert Peripheral IV, , , Once AND sodium chloride 0.9 % flush 10 mL, 10 mL, Intravenous, PRN, Leonora Shepherd MD sodium chloride 0.9 % flush 10 mL, 10 mL, Intravenous, Q12H, Leonora Shepherd MD, 10 mL at 04/06/25 0900 sodium chloride 0.9 % flush 10 mL, 10 mL, Intravenous, PRN, Leonora Shepherd MD sodium chloride 0.9 % infusion 40 mL, 40 mL, Intravenous, PRN, Leonora Shepherd MD tamsulosin (FLOMAX) 24 hr capsule 0.4 mg, 0.4 mg, Oral, Nightly, Leonora Shepherd MD, 0.4 mg at 04/05/25 2159 valsartan (DIOVAN) tablet 40 mg, 40 mg, Oral, Q24H, Leonora Shepherd MD, 40 mg at 04/06/25 0859 Antibiotics: Anti-Infectives (From admission, onward) Ordered Dose/Rate Route Frequency Start Stop 04/06/25 0815 DAPTOmycin (CUBICIN) 800 mg in sodium chloride 0.9 % 50 mL IVPB Ordering Provider: Carlton Mead MD 8 mg/kg ?? 98.8 kg (Adjusted) 100 mL/hr over 30 Minutes Intravenous Every 24 Hours 04/06/25 1000 04/16/25 0959 04/04/252005 cefTRIAXone (ROCEPHIN) 2,000 mg in sodium chloride 0.9 % 100 mL MBP Ordering Provider: Carlton Mead MD 2,000 mg 200 mL/hr over 30 Minutes Intravenous Every 24 Hours 04/05/25 2000 04/16/25 0814 04/05/25 1207 DAPTOmycin (CUBICIN) 800 mg in sodium chloride 0.9 % 50 mL IVPB Ordering Provider: Carlton Mead MD 8 mg/kg ?? 98.8 kg (Adjusted) 100 mL/hr over 30 Minutes Intravenous Every 24 Hours 04/05/25 1300 04/05/25 1427 04/05/25 0031 vancomycin IVPB 1500 mg in 0.9% NaCl (Premix) 500 mL Status: Discontinued Ordering Provider: Una Perla, PharmD 1,500 mg 333.3 mL/hr over 90 Minutes Intravenous Every 12 Hours 04/05/25 0800 04/05/25 1207 04/04/252004 Pharmacy to dose vancomycin Status: Discontinued Ordering Provider: Leonora Shepherd MD Not Applicable Continuous PRN 04/04/25200404/05/25 1207 04/04/251942 vancomycin 2750 mg/500 mL 0.9% NS IVPB ([facility]) Ordering Provider: Mario Crowley, DO 20 mg/kg ?? 134 kg over 165 Minutes Intravenous Once 04/04/25195804/04/25230604/04/251942 cefTRIAXone (ROCEPHIN) 2,000 mg in sodium chloride 0.9 % 100 mL MBP Ordering Provider: Leonora Shepherd MD 2,000 mg 200 mL/hr over 30 Minutes Intravenous Once 04/04/25195804/05/25 0012 Review of Systems: See HPI Physical Exam: Vital Signs Temp (24hrs), Av.2 ??F (37.3 ??C), Min:98 ??F (36.7 ??C), Max:100.9 ??F (38.3 ??C) Temp Min: 98 ??F (36.7 ??C) Max: 100.9 ??F (38.3 ??C) BP Min: 110/62 Max: 130/72 Pulse Min: 60 Max: 87 Resp Min: 16 Max: 18 SpO2 Min: 88 % Max: 94 % GENERAL: Awake and alert, in moderate distress, pulling covers off c/o feeling hot HEENT: Normocephalic, atraumatic. PERRL. EOMI. No conjunctival injection. No icterus. NECK: Supple . HEART: RRR; No murmur, rubs, gallops. LUNGS: Coarse auscultation bilaterally without wheezing, rales, rhonchi. Normal respiratory effort.Nonlabored. ABDOMEN: Soft, nontender, nondistended. No rebound or guarding. NO mass or HSM. EXT: He has marked improvement in the right posterior knee dermatitis. His anterior BKA stump erythema is markedly improved but there is still a lateral area of fluctuance which is quite extensive.. : Without Shoemaker catheter. MSK: No joint effusions or erythema SKIN: No diffuse rash. NEURO: Oriented to PPT. Motor 5/5 strength PSYCHIATRIC: Normal insight and judgment. Cooperative with PE Laboratory Data Results from last 7 days Lab Units 04/06/25 0341 04/05/25 0354 04/04/25 1447 WBC 10*3/mm3 10.86* 11.18* 12.72* HEMOGLOBIN g/dL 13.9 13.9 15.3 HEMATOCRIT % 43.7 42.4 47.9 PLATELETS 10*3/mm3 115* 160 232 Results from last 7 days Lab Units 04/06/25 0342 SODIUM mmol/L 138 POTASSIUM mmol/L 3.6 CHLORIDE mmol/L 103 CO2 mmol/L 24.2 BUN mg/dL 12.8 CREATININE mg/dL 0.80 GLUCOSE mg/dL 94 CALCIUM mg/dL 8.0* Results from last 7 days Lab Units 04/04/25 1447 ALK PHOS U/L 106 BILIRUBIN mg/dL 1.0 ALT (SGPT) U/L 26 AST (SGOT) U/L 25 Results from last 7 days Lab Units 04/04/25 1447 SED RATE mm/hr 51* Results from last 7 days Lab Units 04/04/25 1447 CRP mg/dL 8.57* Results from last 7 days Lab Units 04/05/25 1215 CK TOTAL U/L 140 Estimated Creatinine Clearance: 164.7 mL/min (by C-G formula based on SCr of 0.8 mg/dL). Microbiology: No results found for: ACANTHNAEG , AFBCX , BPERTUSSISCX , BLOODCX No results found for: BCIDPCR , CXREFLEX , CSFCX , CULTURETIS No results found for: CULTURES , HSVCX , URCX No results found for: EYECULTURE , GCCX , HSVCULTURE , LABHSV No results found for: LEGIONELLA , MRSACX , MUMPSCX , MYCOPLASCX No results found for: NOCARDIACX , STOOLCX No results found for: THROATCX , UNSTIMCULT , URINECX , CULTURE , VZVCULTUR No results found for: VIRALCULTU , WOUNDCX Radiology: Imaging Results (Last 72 Hours) Procedure Component Value Units Date/Time MRI Tibia Fibula Right With & Without Contrast [[id number]] Collected: 04/04/252256 Updated: 04/04/252302 Narrative: MRI TIBIA FIBULA RIGHT W WO CONTRAST Date of Exam: 04/04/2025 5:26 PM EDT Indication: right BKA amputation with pain, swelling, infx? fluid collection. Comparison: None available. Technique: Routine multiplanar/multisequence images of the right tibia and fibula were obtained before and after the uneventful intravenous administration of Vueway. Findings: Postsurgical changes are seen related to below-knee amputation. Soft tissue swelling is seen along the resection margin with diffuse skin thickening. This extends along the anterior aspect of the tibia. No focal collection identified. Mild enhancement is seen corresponding to this region diffusely. No drainable collection identified. There is a small patchy area of hypoattenuation present which may represent a small area of phlegmonous change ([id number] image 10) measuring approximately 1.6 cm which appears linear (series 15 image 37). The tibial stump demonstrates no significant edema or enhancement. No definite periosteal changes identified. Fibular resection margin appears unremarkable. Thereis no knee joint effusion. Musculature appears unremarkable with no evidence of focal atrophy. Impression: Impression: Postsurgical changes related to below-knee amputation with soft tissue swelling and skin thickeningseen along the resection margin extending along the anterior aspect of the tibia consistent with cellulitis. There is a small patchy area of hypoattenuation present which may represent a small area of phlegmonous change. No drainable collection identified. No definite osseous edema identified to suggest osteomyelitis. No knee joint effusion. Electronically Signed: Leigh Jones MD 04/04/2025 11:00 PM EDT Workstation ID: [id number] Impression: 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 (Treated by ID in [place] Dr. Harris). Dr. Torres treated him with very prolonged intravenousantibiotic therapy followed by a year of oral doxycycline due to concern about potential for relapse. His stump cellulitis is markedly better but he still has an area of fluctuance and tenderness suggestive of a possible abscess. Right leg dermatitis-he has significant right posterior knee dermatitis which is improving on Lotrisone. 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 HTN HLD Mood disorder PLAN/RECOMMENDATIONS: 1. Intravenous daptomycin 2. Continue ceftriaxone 3. Possible surgical intervention per Dr. Dean This visit included the following complex service elements: Complex medical decision-making associated with antimicrobial prescribing. In-depth chart review with high level synthesis for complex diagnoses. Managed infection treatment protocol associated with transitions of care for this complex patient. Carlton Mead MD 04/06/2025 16:00 EDT * Cherri Beatty, [facility] - 04/05/2025 3:01 PM EDT Pharmacy to Dose Heparin Infusion Note Won Dennis is a 44 y.o. male receiving heparin infusion. Therapy for (VTE/Cardiac): VTE (Full anticoagulation for factor II mutation) Patient Weight: 134 kg Initial Bolus (Y/N): No Any Bolus (Y/N): Yes Signs or Symptoms of Bleeding: None currently VTE (PE/DVT) Initial rate: 18 units/kg/hr (Max 1,500 units/hr) Anti-Xa Bolus Dose Infusion Hold Time Infusion Rate Change (units/kg/hr) Repeat Anti-Xa < 0.11 50 units/kg (4000 units Max) None Increase by 4 units/kg/hr 6 hours 0.11 - 0.19 25 units/kg (2000 units Max) None Increase by 3 units/kg/hr 6 hours 0.2 - 0.29 0 None Increase by 2 units/kg/hr 6 hours 0.3 - 0.7 0 None No Change 6 hours (after 2 consecutive levels in range check qAM) 0.71 - 0.8 0 None Decrease by 1 units/kg/hr 6 hours 0.81 - 0.9 0 None Decrease by 2 units/kg/hr 6 hours 0.91 - 1 0 60 minutes Decrease by 3 units/kg/hr 6 hours >1 0 Hold After Anti-Xa less than 0.7 decrease previous rate by 4 units/kg/hr Every 2 hours until Anti-Xa less than 0.7 then when infusion restarts in 6 hours Results from last 7 days Lab Units 04/05/25 0354 04/05/25 0018 04/04/25 1447 INR -- 1.19* -- HEMOGLOBIN g/dL 13.9 -- 15.3 HEMATOCRIT % 42.4 -- 47.9 PLATELETS 10*3/mm3 160 -- 232 Date Time Anti-Xa Current Rate (units/kg/hr) Bolus (units) Rate Change (units/kg/hr) New Rate (units/kg/hr) Repeat Anti-Xa Comments / Pump Check 04/05 0000 Pending New start -- +11 11 0600 ALDEN LEIGH Mary. 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 04/05 0500 0.30 11 -- -- 11 1200 ALDEN LEIGH 04/05 1215 0.17 11 1999 +3 14 2100 ALDEN Beatty RPH 04/05/2025 14:55 EDT * Jason Álvarez DO - 04/05/2025 12:43 PM EDT Images from the original note were not included. [facility] Medicine Services PROGRESS NOTE Patient Name: Won Dennis : 1980 Date of Admission: 04/04/2025 Primary Care Physician: Provider, No Known Subjective Subjective CC: Right BKA cellulitis HPI: Patient seen resting comfortably in bed in no acute distress. Reports erythema, swelling, and pain to right lower extremity BKA starting this past . Denies any fevers at home. Denies any trauma to the area apart from irritation from his new RLE prosthetic. Objective Objective Vital Signs: Temp: [98.9 ??F (37.2 ??C)-99.7 ??F (37.6 ??C)] 99.2 ??F (37.3 ??C) Heart Rate: [83-102] 86 Resp: [16-18] 18 BP: (103-145)/(53-95) 121/67 Flow (L/min) (Oxygen Therapy): [1.5] 1.5 Physical Exam Constitutional: General: He is not in acute distress. Cardiovascular: Rate and Rhythm: Normal rate. Pulses: Normal pulses. Pulmonary: Effort: Pulmonary effort is normal. No respiratory distress. Abdominal: General: There is no distension. Palpations: Abdomen is soft. Tenderness: There is no abdominal tenderness. There is no guarding or rebound. Musculoskeletal: Comments: Right BKA Skin: General: Skin is warm. Findings: Erythema present. Neurological: Mental Status: He is alert and oriented to person, place, and time. Psychiatric: Mood and Affect: Mood normal. Behavior: Behavior normal. Results Reviewed: LAB RESULTS: Lab 04/05/25 0354 04/05/25 0018 04/04/25 1447 WBC 11.18* -- 12.72* HEMOGLOBIN 13.9 -- 15.3 HEMATOCRIT 42.4 -- 47.9 PLATELETS 160 -- 232 NEUTROS ABS 8.23* -- 9.52* IMMATURE GRANS (ABS) 0.04 -- 0.03 LYMPHS ABS 1.56 -- 1.66 MONOS ABS 1.23* -- 1.43* EOS ABS 0.09 -- 0.05 MCV 84.8 -- 84.9 SED RATE -- -- 51* CRP -- -- 8.57* PROTIME -- 15.9* -- APTT 35.3* 33.6* -- Lab 04/05/25 0354 04/04/25 1447 SODIUM 136 136 POTASSIUM 3.9 3.8 CHLORIDE 103 100 CO2 24.0 25.3 ANION GAP 9.0 10.7 BUN 17.3 18.3 CREATININE 0.92 0.94 EGFR 105.2 102.5 GLUCOSE 152* 90 CALCIUM 7.8* 8.6 Lab 04/04/25 1447 TOTAL PROTEIN 7.3 ALBUMIN 4.1 GLOBULIN 3.2 ALT (SGPT) 26 AST (SGOT) 25 BILIRUBIN 1.0 ALK PHOS 106 Lab 04/05/25 0018 PROTIME 15.9* INR 1.19* Brief Urine Lab Results None Microbiology Results Abnormal None MRI Tibia Fibula Right With & Without Contrast Result Date: 04/04/2025 MRI TIBIA FIBULA RIGHT W WO CONTRAST Date of Exam: 04/04/2025 5:26 PM EDT Indication: right BKA amputation with pain, swelling, infx? fluid collection. Comparison: None available. Technique: Routine multiplanar/multisequence images of the right tibia and fibula were obtained before and after the uneventful intravenous administration of Vueway. Findings: Postsurgical changes are seen related to below-knee amputation. Soft tissue swelling is seen along the resection margin with diffuse skin thickening. This extends along the anterior aspect of the tibia. No focal collection identified. Mild enhancement is seen corresponding to this region diffusely. No drainable collection identified. There johanne small patchy area of hypoattenuation present which may represent a small area of phlegmonous change (series 19 image 10) measuring approximately 1.6 cm which appears linear (series 15 image 37). The tibial stump demonstrates no significant edema or enhancement. No definite periosteal changes identified. Fibular resection margin appears unremarkable. There is no knee joint effusion. Musculature appears unremarkable with no evidence of focal atrophy. Impression: Impression: Postsurgical changes related to below-knee amputation with soft tissue swelling and skin thickening seen along the resection margin extending along the anterior aspect of the tibia consistent with cellulitis. There is a small patchy area of hypoattenuation present which may represent a small area of phlegmonous change. No drainable collection identified. No definite osseous edema identified to suggest osteomyelitis. No knee joint effusion. Electronically Signed: Leigh Jones MD 04/04/2025 11:00 PM EDT Workstation ID: [id number] I have personally reviewed the therapy plans: [] PT/OT/ ST Therapy Plans Current medications: Scheduled Meds:atorvastatin, 40 mg, Oral, Nightly cefTRIAXone, 2,000 mg, Intravenous, Q24H clotrimazole-betamethasone, 1 Application, Topical, Q12H DAPTOmycin, 8 mg/kg (Adjusted), Intravenous, Q24H ferrous sulfate, 325 mg, Oral, BID furosemide, 20 mg, Oral, Daily hydroCHLOROthiazide Oral, 12.5 mg, Oral, Daily oxybutynin XL, 10 mg, Oral, Nightly saccharomyces boulardii, 250 mg, Oral, BID sertraline, 100 mg, Oral, Nightly sodium chloride, 10 mL, Intravenous, Q12H tamsulosin, 0.4 mg, Oral, Nightly valsartan, 40 mg, Oral, Q24H Continuous Infusions:heparin, 11 Units/kg/hr, Last Rate: 11 Units/kg/hr (04/05/25 0113) Pharmacy to Dose Heparin, PRN Meds:. acetaminophen OR acetaminophen OR acetaminophen senna-docusate sodium AND polyethylene glycol AND bisacodyl AND bisacodyl Calcium Replacement - Follow Nurse / BPA Driven Protocol HYDROmorphone Magnesium Standard Dose Replacement - Follow Nurse / BPA Driven Protocol nitroglycerin Pharmacy to Dose Heparin Phosphorus Replacement - Follow Nurse / BPA Driven Protocol Potassium Replacement - Follow Nurse / BPA Driven Protocol [COMPLETED] Insert Peripheral IV AND sodium chloride sodium chloride sodium chloride Assessment & Plan Assessment & Plan Active Hospital Problems Diagnosis POA 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 Brief Hospital Course to date: Won Dennis is a 44 y.o. 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 MRI concerning for cellulitis. Orthopedic surgery infectious disease consulted. Right BKA cellulitis -Patient presenting with 2 to 3 days of right BKA swelling, erythema and pain -MRI RLE revealing cellulitis, no obvious signs of OM or drainable fluid collection -Orthopedic surgery consulted, continuing IV fluids for now. N.p.o. at midnight for possible irrigation and debridement in AM. -Infectious disease consulted, continue daptomycin and ceftriaxone Factor II deficiency -Holding Eliquis for now. Continue heparin drip. HTN HLD -Continue HCTZ 12.5 mg and Valsartan 40 mg -Continue statin Mood disorder -Continue Sertraline BPH -continue home medications Expected Discharge Location and Transportation: TBD Expected Discharge Expected discharge date/ time has not been documented. VTE Prophylaxis: Pharmacologic & mechanical VTE prophylaxis orders are present. AM-PAC 6 Clicks Score (PT): 21 (04/05/25 0036) CODE STATUS: Code Status and Medical Interventions: CPR (Attempt to Resuscitate); Full Support Ordered at: 04/04/252047 Code Status (Patient has no pulse and is not breathing): CPR (Attempt to Resuscitate) Medical Interventions (Patient has pulse or is breathing): Full Support Level Of Support Discussed With: Patient Jason Álvarez DO 04/05/25 documented in this encounter H&P Notes * Leonora Shepherd MD - 04/04/2025 8:40 PM EDT Images from the original note were not included. [facility] Medicine Services HISTORY AND PHYSICAL Patient Name: Won Dennis : 1980 Primary Care Physician: Provider, No Known Date of admission: 04/04/2025 Subjective Subjective Chief Complaint: HPI: Won Dennis is a 44 y.o. 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 He is followed with Dr. Dean. Reports for the last 3 days right BKA has been swelling with erythema. Currently denies nausea vomiting fevers chills. Dr. Dean recommended patient be seen at ED. ED provider spoke with Dr. Dean who recommended IV Abx and plan for OR in the AM. Patient currently reports pain at BKA, however, no fevers. He reports takes a majority of his medications at nighttime. Did take his morning meds. Personal History Past medical history: See above Past surgical history: See above Family History: family history is not on file. Social History: Social History Social History Narrative Not on file Medications: Available home medication information reviewed. Allergies Allergen Reactions Ceftin [Cefuroxime] Nausea And Vomiting Keflex [Cephalexin] Nausea And Vomiting Latex Rash Objective Objective Vital Signs: Temp: [99.2 ??F (37.3 ??C)] 99.2 ??F (37.3 ??C) Heart Rate: [83-102] 91 Resp: [16-18] 16 BP: (103-145)/(53-95) 137/88 Physical Exam Constitutional: male no acute distress, awake, alert HENT: NCAT, mucous membranes moist Respiratory: Clear to auscultation bilaterally, respiratory effort normal Cardiovascular: RRR, no murmurs, rubs, or gallops Gastrointestinal: Positive bowel sounds, soft, nontender, full Musculoskeletal: Right lower extremity: BKA with erythema. Tender to palpitation. LLE: No gross abnormalities Psychiatric: Appropriate affect, cooperative Neurologic: Oriented x 3, speech clear Skin: No rashes Result Review: I have personally reviewed the results from the time of this admission to 04/04/2025 23:13 EDT and agree with these findings: [x] Laboratory list / accordion [] Microbiology [x] Radiology [] EKG/Telemetry [] Cardiology/Vascular [] Pathology [] Old records [] Other: LAB RESULTS: Lab 04/04/25 1447 WBC 12.72* HEMOGLOBIN 15.3 HEMATOCRIT 47.9 PLATELETS 232 NEUTROS ABS 9.52* IMMATURE GRANS (ABS) 0.03 LYMPHS ABS 1.66 MONOS ABS 1.43* EOS ABS 0.05 MCV 84.9 SED RATE 51* CRP 8.57* Lab 04/04/25 1447 SODIUM 136 POTASSIUM 3.8 CHLORIDE 100 CO2 25.3 ANION GAP 10.7 BUN 18.3 CREATININE 0.94 EGFR 102.5 GLUCOSE 90 CALCIUM 8.6 Lab 04/04/25 1447 TOTAL PROTEIN 7.3 ALBUMIN 4.1 GLOBULIN 3.2 ALT (SGPT) 26 AST (SGOT) 25 BILIRUBIN 1.0 ALK PHOS 106 Microbiology Results (last 10 days) No results found for the last 240 hours. MRI Tibia Fibula Right With & Without Contrast Result Date: 04/04/2025 MRI TIBIA FIBULA RIGHT W WO CONTRAST Date of Exam: 04/04/2025 5:26 PM EDT Indication: right BKA amputation with pain, swelling, infx? fluid collection. Comparison: None available. Technique: Routine multiplanar/multisequence images of the right tibia and fibula were obtained before and after the uneventful intravenous administration of Vueway. Findings: Postsurgical changes are seen related to below-knee amputation. Soft tissue swelling is seen along the resection margin with diffuse skin thickening. This extends along the anterior aspect of the tibia. No focal collection identified. Mild enhancement is seen corresponding to this region diffusely. No drainable collection identified. There johanne small patchy area of hypoattenuation present which may represent a small area of phlegmonous change (series 19 image 10) measuring approximately 1.6 cm which appears linear (series 15 image 37). The tibial stump demonstrates no significant edema or enhancement. No definite periosteal changes identified. Fibular resection margin appears unremarkable. There is no knee joint effusion. Musculature appears unremarkable with no evidence of focal atrophy. Impression: Impression: Postsurgical changes related to below-knee amputation with soft tissue swelling and skin thickening seen along the resection margin extending along the anterior aspect of the tibia consistent with cellulitis. There is a small patchy area of hypoattenuation present which may represent a small area of phlegmonous change. No drainable collection identified. No definite osseous edema identified to suggest osteomyelitis. No knee joint effusion. Electronically Signed: Leigh Jones MD 04/04/2025 11:00 PM EDT Workstation ID: [id number] Assessment & Plan Assessment & Plan Won Dennis is a 44 y.o. 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 He is followed with Dr. Dean. Reports for the last 3 days right BKA has been swelling with erythema. ED provider spoke with Dr. Dean who recommended IV Abx and plan for OR in the AM. Right BKA infection -Dr. Dean aware of the admission, NPO after MN -Consult ID Factor 2 -On Eliquis. Spoke with [facility]. Appreciate pharmacy's assistance with heparin drip HTN HLD -HCTZ 12.5 mg and Valsartan 40 mg -continue statin Mood disorder -Continue Sertraline BPH -continue home medications VTE Prophylaxis: Mechanical VTE prophylaxis orders are present. CODE STATUS: Code Status and Medical Interventions: CPR (Attempt to Resuscitate); Full Support Ordered at: 04/04/252047 Code Status (Patient has no pulse and is not breathing): CPR (Attempt to Resuscitate) Medical Interventions (Patient has pulse or is breathing): Full Support Level Of Support Discussed With: Patient Expected Discharge Expected discharge date/ time has not been documented. Leonora Shepherd MD 04/04/25 documented in this encounter Consult Notes * Zelda Burns RN - 04/09/2025 1:10 PM EDTAssociated Order(s): IP CONSULT FOR PICC 4FR PICC placed by Rhoda Bonner RN [facility], tip verified by 3CG see LDA. * Sushil Dean Jr., MD - 04/05/2025 8:07 AM EDTAssociated Order(s): IP CONSULT TO ORTHOPEDIC SURGERY [facility], [facility] [address] [address] Orthopedic Consult Patient: Won Dennis Date of Admission: 04/04/2025 4:10 PM Date of : 1980 Attending Physician: Jason Álvarez DO Consulting Physician: Sushil Dean Jr, MD Chief Complaint: 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 male admitted to [facility], [place] with 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]. 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 He had prior revision below-knee amputation. He was doing well for an extended period, but recently had a new below-knee amputation prosthetic socket fashioned and began noticing pain. He developed worsening swelling and redness, was evaluated in the emergency department in [place], was discharged with instructions for follow-up. He contacted me and I asked him to come to the emergency department yesterday. Allergies Allergen Reactions Ceftin [Cefuroxime] Nausea And Vomiting Keflex [Cephalexin] Nausea And Vomiting Latex Rash Home Medications: Medications Prior to Admission Medication Sig Dispense Refill Last Dose/Taking atorvastatin (LIPITOR) 40 MG tablet Take 1 tablet by mouth Every Night. 04/04/2025 at 3:30 AM coenzyme Q10 100 MG capsule Take 2 capsules by mouth Daily. 04/03/2025 Morning doxycycline (VIBRAMYICN) 100 MG tablet Take 1 tablet by mouth 2 (Two) Times a Day. 04/04/2025 at 3:30 AM Eliquis 5 MG tablet tablet Take 1 tablet by mouth Every 12 (Twelve) Hours. 04/04/2025 at 3:30 AM ezetimibe (ZETIA) 10 MG tablet Take 1 tablet by mouth Every Night. 04/04/2025 at 3:30 AM famotidine (PEPCID) 20 MG tablet Take 1 tablet by mouth 2 (Two) Times a Day. 04/03/2025 Morning FeroSul 325 (65 Fe) MG tablet Take 1 tablet by mouth 2 (Two) Times a Day With Meals. 04/04/2025 at 3:30 AM furosemide (LASIX) 20 MG tablet Take 1 tablet by mouth Daily. 04/03/2025 Morning hydroCHLOROthiazide 12.5 MG tablet Take 1 tablet by mouth Daily. 04/03/2025 Morning Lactobacillus-Inulin ([facility] DataGrav[employer]) capsule Take 200 mg by mouth Daily. 04/03/2025 Morning omega-3 acid ethyl esters (LOVAZA) 1 g capsule Take 1 capsule by mouth Every Night. Taking oxybutynin XL (DITROPAN-XL) 10 MG 24 hr tablet Take 1 tablet by mouth Every Night. 04/04/2025 at 3:30 AM sertraline (ZOLOFT) 100 MG tablet Take 1 tablet by mouth Every Night. 04/04/2025 at 3:30 AM tadalafil 20 MG tablet tablet Take 1 tablet by mouth Every Night. 04/04/2025 at 3:30 AM tamsulosin (FLOMAX) 0.4 MG capsule 24 hr capsule Take 1 capsule by mouth Every Night. 04/04/2025 at 3:30 AM valsartan (DIOVAN) 40 MG tablet Take 1 tablet by mouth Every Night. 04/04/2025 at 3:30 AM Symbicort 160-4.5 MCG/ACT inhaler Inhale 2 puffs 2 (Two) Times a Day. Unknown Current Medications: Scheduled Meds:atorvastatin, 40 mg, Oral, Nightly cefTRIAXone, 2,000 mg, Intravenous, Q24H ferrous sulfate, 325 mg, Oral, BID furosemide, 20 mg, Oral, Daily hydroCHLOROthiazide Oral, 12.5 mg, Oral, Daily oxybutynin XL, 10 mg, Oral, Nightly saccharomyces boulardii, 250 mg, Oral, BID sertraline, 100 mg, Oral, Nightly sodium chloride, 10 mL, Intravenous, Q12H tamsulosin, 0.4 mg, Oral, Nightly valsartan, 40 mg, Oral, Q24H vancomycin, 1,500 mg, Intravenous, Q12H Continuous Infusions:heparin, 11 Units/kg/hr, Last Rate: 11 Units/kg/hr (04/05/25 0113) Pharmacy to Dose Heparin, Pharmacy to dose vancomycin, PRN Meds:. acetaminophen OR acetaminophen OR acetaminophen senna-docusate sodium AND polyethylene glycol AND bisacodyl AND bisacodyl Calcium Replacement - Follow Nurse / BPA Driven Protocol HYDROmorphone Magnesium Standard Dose Replacement - Follow Nurse / BPA Driven Protocol nitroglycerin Pharmacy to Dose Heparin Pharmacy to dose vancomycin Phosphorus Replacement - Follow Nurse / BPA Driven Protocol Potassium Replacement - Follow Nurse / BPA Driven Protocol [COMPLETED] Insert Peripheral IV AND sodium chloride sodium chloride sodium chloride Past Medical History: Diagnosis Date Amputation finger Anxiety and depression Asthma Bone spur of right foot CHF (congestive heart failure) Hx of right BKA 2022 Hyperlipidemia Hypertension MRSA (methicillin resistant Staphylococcus aureus) infection 05/09/2023 Right leg wound culture Osteomyelitis PE (pulmonary thromboembolism) Prostate enlargement Sleep apnea Past Surgical History: Procedure Laterality Date AMPUTATION Left left hand, index finger amputated past the first knuckle ANKLE TENDON REPAIR Left BACK SURGERY BELOW KNEE LEG AMPUTATION Right 2022 CARDIAC CATHETERIZATION Social History Occupational History Not on file Tobacco Use Smoking status: Never Smokeless tobacco: Never Vaping Use Vaping status: Never Used Substance and Sexual Activity Alcohol use: Not Currently Drug use: Never Sexual activity: Defer Social History Social History Narrative Not on file History reviewed. No pertinent family history. Review of Systems: Constitutional-- No Fever HEENT-- No new vision, hearing or throat complaints. CV-- No chest pain, Resp-- No SOB/cough. History of COPD. GI- No nausea, vomiting, or diarrhea. -- No dysuria, hematuria, or flank pain. Heme- No active bruising or bleeding Neuro-- No acute focal weakness or numbness in the arms or legs. Skin--No rashes or lesions Physical Exam: 44 y.o. male General Appearance: Alert, cooperative, in no acute distress Vitals: 04/04/25 2200 04/04/25 2230 04/04/25 2303 04/05/25 0329 BP: 135/61 130/66 137/88 116/69 BP Location: Right arm Right arm Patient Position: Lying Lying Pulse: 91 Resp: 16 18 Temp: 99.2 ??F (37.3 ??C) 98.9 ??F (37.2 ??C) TempSrc: Oral Oral SpO2: 94% 95% Weight: Height: Head: Normocephalic, without obvious abnormality, atraumatic Eyes: Lids and lashes normal, conjunctivae and sclerae normal Ears: Ears appear intact with no abnormalities noted Lungs: Respirations regular, even and unlabored Abdomen: Grossly nondistended. Extremities: Right lower extremity: Moderate erythema, no fluctuance or bullae. Erythema and warmthare improved compared to yesterday. Pulses: Pulses palpable and equal bilaterally Skin: No bleeding, bruising or rash Neurologic: Sensation grossly intact. Diagnostic Tests: Admission on 04/04/2025 Component Date Value Ref Range Status Glucose 04/04/2025 90 65 - 99 mg/dL Final BUN 04/04/2025 18.3 6.0 - 20.0 mg/dL Final Creatinine 04/04/2025 0.94 0.76 - 1.27 mg/dL Final Sodium 04/04/2025 136 136 - 145 mmol/L Final Potassium 04/04/2025 3.8 3.5 - 5.2 mmol/L Final Chloride 04/04/2025 100 98 - 107 mmol/L Final CO2 04/04/2025 25.3 22.0 - 29.0 mmol/L Final Calcium 04/04/2025 8.6 8.6 - 10.5 mg/dL Final Total Protein 04/04/2025 7.3 6.0 - 8.5 g/dL Final Albumin 04/04/2025 4.1 3.5 - 5.2 g/dL Final ALT (SGPT) 04/04/2025 26 1 - 41 U/L Final AST (SGOT) 04/04/2025 25 1 - 40 U/L Final Alkaline Phosphatase 04/04/2025 106 39 - 117 U/L Final Total Bilirubin 04/04/2025 1.0 0.0 - 1.2 mg/dL Final Globulin 04/04/2025 3.2 gm/dL Final Calculated Result A/G Ratio 04/04/2025 1.3 g/dL Final BUN/Creatinine Ratio 04/04/2025 19.5 7.0 - 25.0 Final Anion Gap 04/04/2025 10.7 5.0 - 15.0 mmol/L Final eGFR 04/04/2025 102.5 >60.0 mL/min/1.73 Final Sed Rate 04/04/2025 51 (H) 0 - 15 mm/hr Final C-Reactive Protein 04/04/2025 8.57 (H) 0.00 - 0.50 mg/dL Final WBC 04/04/2025 12.72 (H) 3.40 - 10.80 10*3/mm3 Final RBC 04/04/2025 5.64 4.14 - 5.80 10*6/mm3 Final Hemoglobin 04/04/2025 15.3 13.0 - 17.7 g/dL Final Hematocrit 04/04/2025 47.9 37.5 - 51.0 % Final MCV 04/04/2025 84.9 79.0 - 97.0 fL Final MCH 04/04/2025 27.1 26.6 - 33.0 pg Final MCHC 04/04/2025 31.9 31.5 - 35.7 g/dL Final RDW 04/04/2025 13.1 12.3 - 15.4 % Final RDW-SD 04/04/2025 40.3 37.0 - 54.0 fl Final MPV 04/04/2025 9.4 6.0 - 12.0 fL Final Platelets 04/04/2025 232 140 - 450 10*3/mm3 Final Neutrophil % 04/04/2025 74.9 42.7 - 76.0 % Final Lymphocyte % 04/04/2025 13.1 (L) 19.6 - 45.3 % Final Monocyte % 04/04/2025 11.2 5.0 - 12.0 % Final Eosinophil % 04/04/2025 0.4 0.3 - 6.2 % Final Basophil % 04/04/2025 0.2 0.0 - 1.5 % Final Immature Grans % 04/04/2025 0.2 0.0 - 0.5 % Final Neutrophils, Absolute 04/04/2025 9.52 (H) 1.70 - 7.00 10*3/mm3 Final Lymphocytes, Absolute 04/04/2025 1.66 0.70 - 3.10 10*3/mm3 Final Monocytes, Absolute 04/04/2025 1.43 (H) 0.10 - 0.90 10*3/mm3 Final Eosinophils, Absolute 04/04/2025 0.05 0.00 - 0.40 10*3/mm3 Final Basophils, Absolute 04/04/2025 0.03 0.00 - 0.20 10*3/mm3 Final Immature Grans, Absolute 04/04/2025 0.03 0.00 - 0.05 10*3/mm3 Final nRBC 04/04/2025 0.0 0.0 - 0.2 /100 WBC Final Glucose 04/05/2025 152 (H) 65 - 99 mg/dL Final BUN 04/05/2025 17.3 6.0 - 20.0 mg/dL Final Creatinine 04/05/2025 0.92 0.76 - 1.27 mg/dL Final Sodium 04/05/2025 136 136 - 145 mmol/L Final Potassium 04/05/2025 3.9 3.5 - 5.2 mmol/L Final Chloride 04/05/2025 103 98 - 107 mmol/L Final CO2 04/05/2025 24.0 22.0 - 29.0 mmol/L Final Calcium 04/05/2025 7.8 (L) 8.6 - 10.5 mg/dL Final BUN/Creatinine Ratio 04/05/2025 18.8 7.0 - 25.0 Final Anion Gap 04/05/2025 9.0 5.0 - 15.0 mmol/L Final eGFR 04/05/2025 105.2 >60.0 mL/min/1.73 Final Heparin Anti-Xa (UFH) 04/05/2025 0.39 0.30 - 0.70 IU/ml Final Protime 04/05/2025 15.9 (H) 12.2 - 15.3 Seconds Final INR 04/05/2025 1.19 (H) 0.89 - 1.12 Final PTT 04/05/2025 33.6 (L) 60.0 - 90.0 seconds Final WBC 04/05/2025 11.18 (H) 3.40 - 10.80 10*3/mm3 Final RBC 04/05/2025 5.00 4.14 - 5.80 10*6/mm3 Final Hemoglobin 04/05/2025 13.9 13.0 - 17.7 g/dL Final Hematocrit 04/05/2025 42.4 37.5 - 51.0 % Final MCV 04/05/2025 84.8 79.0 - 97.0 fL Final MCH 04/05/2025 27.8 26.6 - 33.0 pg Final MCHC 04/05/2025 32.8 31.5 - 35.7 g/dL Final RDW 04/05/2025 12.9 12.3 - 15.4 % Final RDW-SD 04/05/2025 39.7 37.0 - 54.0 fl Final MPV 04/05/2025 10.2 6.0 - 12.0 fL Final Platelets 04/05/2025 160 140 - 450 10*3/mm3 Final Neutrophil % 04/05/2025 73.5 42.7 - 76.0 % Final Lymphocyte % 04/05/2025 14.0 (L) 19.6 - 45.3 % Final Monocyte % 04/05/2025 11.0 5.0 - 12.0 % Final Eosinophil % 04/05/2025 0.8 0.3 - 6.2 % Final Basophil % 04/05/2025 0.3 0.0 - 1.5 % Final Immature Grans % 04/05/2025 0.4 0.0 - 0.5 % Final Neutrophils, Absolute 04/05/2025 8.23 (H) 1.70 - 7.00 10*3/mm3 Final Lymphocytes, Absolute 04/05/2025 1.56 0.70 - 3.10 10*3/mm3 Final Monocytes, Absolute 04/05/2025 1.23 (H) 0.10 - 0.90 10*3/mm3 Final Eosinophils, Absolute 04/05/2025 0.09 0.00 - 0.40 10*3/mm3 Final Basophils, Absolute 04/05/2025 0.03 0.00 - 0.20 10*3/mm3 Final Immature Grans, Absolute 04/05/2025 0.04 0.00 - 0.05 10*3/mm3 Final nRBC 04/05/2025 0.0 0.0 - 0.2 /100 WBC Final Heparin Anti-Xa (UFH) 04/05/2025 0.30 0.30 - 0.70 IU/ml Final PTT 04/05/2025 35.3 (L) 60.0 - 90.0 seconds Final MRI Tibia Fibula Right With & Without Contrast Result Date: 04/04/2025 Narrative: MRI TIBIA FIBULA RIGHT W WO CONTRAST Date of Exam: 04/04/2025 5:26 PM EDT Indication: right BKA amputation with pain, swelling, infx? fluid collection. Comparison: None available. Technique: Routine multiplanar/multisequence images of the right tibia and fibula were obtained before and after the uneventful intravenous administration of Vueway. Findings: Postsurgical changes are seen related to below-knee amputation. Soft tissue swelling is seen along the resection margin with diffuse skin thickening. This extends along the anterior aspect of the tibia. No focal collection identified. Mild enhancement is seen corresponding to this region diffusely. No drainable collection identified. There is a small patchy area of hypoattenuation present which may represent a small area of phlegmonous change (series 19 image 10) measuring approximately 1.6 cm which appears linear (series 15 image 37). The tibial stump demonstrates no significant edema or enhancement. No definite periosteal changes identified. Fibular resection margin appears unremarkable. There is no knee joint effusion. Musculature appears unremarkable with no evidence of focal atrophy. Impression: Impression: Postsurgical changes related to below-knee amputation with soft tissue swelling and skin thickening seen along the resection margin extending along the anterior aspect of the tibia consistent with cellulitis. There is a small patchy area of hypoattenuation present which may represent a small area of phlegmonous change. No drainable collection identified. No definite osseous edema identified to suggest osteomyelitis. No knee joint effusion. Electronically Signed: Leigh Jones MD 04/04/2025 11:00 PM EDT Workstation ID: [id number] Assessment: Right BKA infection 44-year-old male with history of MRSA osteomyelitis, below-knee amputation, with right below-knee amputation stump cellulitis. Plan: He says his pain is significantly improved compared to yesterday and overnight while on IV antibiotics. MRI demonstrates diffuse cellulitis, possible small fluid collection. We discussed expectant observation on empiric antibiotics versus operative intervention in the form of debridement and i rrigation, deep culture. At this point, he prefers to continue with expectant observation on empiric antibiotics. I think this is reasonable. If he does not continue to improve clinically, or worsens, I would likely repeat MRI. Will follow. Okay for diet today, n.p.o. at midnight pending clinical check tomorrow. Date: 04/05/2025 Sushil Dean Jr, MD * Carlton Mead MD - 04/05/2025 5:55 AM EDTAssociated Order(s): IP CONSULT TO INFECTIOUS DISEASES Images from the original note were not included. INFECTIOUS DISEASE CONSULT/INITIAL HOSPITAL VISIT Won Dennis 1980 [id number] Date of Consult: 04/05/2025 Admission Date: 04/04/2025 Requesting Provider: Evaluating Physician: Dr. Mable Mead MD. 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 He c/o swelling with erythema for several days after a new prosthesis was fitted, which prompted him to seek treatment at [facility]. He is known to Dr. Dean. He denies recent antibiotics. He has an intolerance to keflex, he became severely nauseated with infusion. MRI completed yesterday demonstrates area of hypoatttenuation with small area of phlegmonous change. No osteomyelitis. No knee joint effusion.Denies n/v, or fever. No other symptoms. WBC count 12.7 on admission with sed rate of 51, CRP 8.57.Creatinine normal. No cultures obtained here. Known MRSA from previous wound 05/09/25. HDS, on Heparin gtt. Currently [facility] has been asked to manage the antimicrobials in this patient. Past Medical History: Diagnosis Date Amputation finger Anxiety and depression Asthma Bone spur of right foot CHF (congestive heart failure) Hx of right BKA 2022 Hyperlipidemia Hypertension MRSA (methicillin resistant Staphylococcus aureus) infection 05/09/2023 Right leg wound culture Osteomyelitis PE (pulmonary thromboembolism) Prostate enlargement Sleep apnea Past Surgical History: Procedure Laterality Date AMPUTATION Left left hand, index finger amputated past the first knuckle ANKLE TENDON REPAIR Left BACK SURGERY BELOW KNEE LEG AMPUTATION Right 2022 CARDIAC CATHETERIZATION History reviewed. No pertinent family history. Social History Socioeconomic History Marital status: Unknown Tobacco Use Smoking status: Never Smokeless tobacco: Never Vaping Use Vaping status: Never Used Substance and Sexual Activity Alcohol use: Not Currently Drug use: Never Sexual activity: Defer Allergies Allergen Reactions Ceftin [Cefuroxime] Nausea And Vomiting Keflex [Cephalexin] Nausea And Vomiting Latex Rash Medication: Current Facility-Administered Medications: acetaminophen (TYLENOL) tablet 500 mg, 500 mg, Oral, Q6H PRN, 500 mg at 04/05/25 1155 OR acetaminophen (TYLENOL) 160 MG/5ML oral solution 500 mg, 500 mg, Oral, Q6H PRN OR acetaminophen (TYLENOL) suppository 325 mg, 325 mg, Rectal, Q6H PRN, Leonora Shepherd MD atorvastatin (LIPITOR) tablet 40 mg, 40 mg, Oral, Nightly, Leonora Shepherd MD, 40 mg at 04/04/25 6889 sennosides-docusate (PERICOLACE) 8.6-50 MG per tablet 2 tablet, 2 tablet, Oral, BID PRN AND polyethylene glycol (MIRALAX) packet 17 g, 17 g, Oral, Daily PRN AND bisacodyl (DULCOLAX) EC tablet5 mg, 5 mg, Oral, Daily PRN AND bisacodyl (DULCOLAX) suppository 10 mg, 10 mg, Rectal, Daily PRN, Leonora Shepherd MD Calcium Replacement - Follow Nurse / BPA Driven Protocol, , Not Applicable, PRN, Leonora Shepherd MD cefTRIAXone (ROCEPHIN) 2,000 mg in sodium chloride 0.9 % 100 mL MBP, 2,000 mg, Intravenous, Q24H, Leonora Shehperd MD clotrimazole-betamethasone (LOTRISONE) 1-0.05 % cream 1 Application, 1 Application, Topical, Q12H, Ayah Valentin APRN ferrous sulfate tablet 325 mg, 325 mg, Oral, BID, Leonora Shepherd MD, 325 mg at 04/05/25 0916 furosemide (LASIX) tablet 20 mg, 20 mg, Oral, Daily, Leonora Shepherd MD, 20 mg at 04/05/25 0916 heparin 15310 units/250 mL (100 units/mL) in 0.45 % NaCl infusion, 11 Units/kg/hr, Intravenous, Titrated, Una Perla, PharmD, Last Rate: 14.74 mL/hr at 04/05/25 0113, 11 Units/kg/hr at 04/05/25 0113 hydroCHLOROthiazide tablet 12.5 mg, 12.5 mg, Oral, Daily, Leonora Shepherd MD, 12.5 mg at 916 HYDROmorphone (DILAUDID) injection 0.5 mg, 0.5 mg, Intravenous, Q2H PRN, Leonora Shepherd MD, 0.5 mg at 04/05/25 0036 Magnesium Standard Dose Replacement - Follow Nurse / BPA Driven Protocol, , Not Applicable, PRJoao Pearson Laurie, MD nitroglycerin (NITROSTAT) SL tablet 0.4 mg, 0.4 mg, Sublingual, Q5 Min PRN, Leonora Shepherd MD oxybutynin XL (DITROPAN-XL) 24 hr tablet 10 mg, 10 mg, Oral, Nightly, Leonora Shepherd MD, 10 mg at 04/04/252358 Pharmacy to Dose Heparin, , Not Applicable, Continuous PRLili, Una Perla, PharmD Pharmacy to dose vancomycin, , Not Applicable, Continuous PRLili, Leonora Shepherd MD Phosphorus Replacement - Follow Nurse / BPA Driven Protocol, , Not Applicable, PRNJoao Laurie, MD Potassium Replacement - Follow Nurse / BPA Driven Protocol, , Not Applicable, PRN, Leonora Shepherd MD saccharomyces boulardii (FLORASTOR) capsule 250 mg, 250 mg, Oral, BID, Leonora Shepherd MD, 250 mgat 04/05/25914 sertraline (ZOLOFT) tablet 100 mg, 100 mg, Oral, Nightly, Leonora Shepherd MD, 100 mg at 04/04/252358 [COMPLETED] Insert Peripheral IV, , , Once AND sodium chloride 0.9 % flush 10 mL, 10 mL, Intravenous, PRN, Leonora Shepherd MD sodium chloride 0.9 % flush 10 mL, 10 mL, Intravenous, Q12H, Leonora Shepherd MD, 10 mL at 04/05/25 0916 sodium chloride 0.9 % flush 10 mL, 10 mL, Intravenous, PRN, Leonora Shepherd MD sodium chloride 0.9 % infusion 40 mL, 40 mL, Intravenous, PRN, Leonora Shepherd MD tamsulosin (FLOMAX) 24 hr capsule 0.4 mg, 0.4 mg, Oral, Nightly, Leonora Shepherd MD, 0.4 mg at 04/04/252358 valsartan (DIOVAN) tablet 40 mg, 40 mg, Oral, Q24H, Leonora Shepherd MD, 40 mg at 04/05/25 0915 vancomycin IVPB 1500 mg in 0.9% NaCl (Premix) 500 mL, 1,500 mg, Intravenous, Q12H, Una Perla, PharmD, Last Rate: 333.3 mL/hr at 04/05/25 0916, 1,500 mg at 04/05/25 0916 Antibiotics: Anti-Infectives (From admission, onward) Ordered Dose/Rate Route Frequency Start Stop 04/04/252005 cefTRIAXone (ROCEPHIN) 2,000 mg in sodium chloride 0.9 % 100 mL MBP Ordering Provider: Leonora Shepherd MD 2,000 mg 200 mL/hr over 30 Minutes Intravenous Every 24 Hours 04/05/25199904/09/25195804/05/25 003 vancomycin IVPB 1500 mg in 0.9% NaCl (Premix) 500 mL Ordering Provider: Una Perla, Jasbir 1,500 mg 333.3 mL/hr over 90 Minutes Intravenous Every 12 Hours 04/05/25 0800 04/12/25 0759 04/04/252004 Pharmacy to dose vancomycin Ordering Provider: Leonora Shepherd MD Not Applicable Continuous PRN 04/04/25200404/09/25200304/04/251942 vancomycin 2750 mg/500 mL 0.9% NS IVPB (S) Ordering Provider: Mario Crowley, DO 20 mg/kg ?? 134 kg over 165 Minutes Intravenous Once 04/04/25195804/04/257 04/04/251942 cefTRIAXone (ROCEPHIN) 2,000 mg in sodium chloride 0.9 % 100 mL MBP Ordering Provider: Leonora Shepherd MD 2,000 mg 200 mL/hr over 30 Minutes Intravenous Once 04/04/25195804/05/25 0012 Review of Systems: Constitutional-- No Fever, chills or sweats. Appetite good, no increased pain. HEENT-- No new vision, hearing or throat complaints. No epistaxis or oral sores. Denies odynophagiaor dysphagia. No headache, photophobia or neck stiffness. CV-- No chest pain, palpitation or syncope Resp-- No SOB/cough/Hemoptysis. No chest pain. GI- No nausea, vomiting, or diarrhea. No hematochezia, melena, or hematemesis. Denies jaundice or chronic liver disease. -- No dysuria, hematuria, or flank pain. Denies hesitancy, urgency or flank pain. Heme- No active bruising or bleeding; no Hx of DVT or PE. MS-- increased erythema to posterior thigh lower area of right extremity at prosthetic site. No newback pain. Neuro-- No acute focal weakness or numbness in the arms or legs. Skin--rash to left forearm. No urticaria. Physical Exam: Vital Signs Temp (24hrs), Av.2 ??F (37.3 ??C), Min:98.9 ??F (37.2 ??C), Max:99.7 ??F (37.6 ??C) Temp Min: 98.9 ??F (37.2 ??C) Max: 99.7 ??F (37.6 ??C) BP Min: 103/92 Max: 145/95 Pulse Min: 83 Max: 102 Resp Min: 16 Max: 18 SpO2 Min: 90 % Max: 96 % GENERAL: Awake and alert, in moderate distress. HEENT: Normocephalic, atraumatic. PERRL. EOMI. No conjunctival injection. No icterus. Oropharynx clear without evidence of thrush or exudate. No evidence of periodontal disease. NECK: Supple without nuchal rigidity. No mass. LYMPH: No cervical, axillary or inguinal lymphadenopathy. HEART: RRR; No murmur, rubs, gallops. LUNGS: Coarse auscultation bilaterally without wheezing, rales, rhonchi. Normal respiratory effort.Nonlabored. ABDOMEN: Soft, nontender, nondistended. No rebound or guarding. NO mass or HSM. EXT: He has an extensive dermatitis over his right popliteal region. He has blanching cellulitis with warmth and tenderness over the right BKA stump which is most prominent laterally. There is no overt fluctuance. : Without Shoemaker catheter. MSK: No joint effusions or erythema SKIN: No diffuse rash. NEURO: Oriented to PPT. Motor 5/5 strength PSYCHIATRIC: Normal insight and judgment. Cooperative with PE Laboratory Data Results from last 7 days Lab Units 04/05/25 0354 04/04/25 1447 WBC 10*3/mm3 11.18* 12.72* HEMOGLOBIN g/dL 13.9 15.3 HEMATOCRIT % 42.4 47.9 PLATELETS 10*3/mm3 160 232 Results from last 7 days Lab Units 04/05/25 0354 SODIUM mmol/L 136 POTASSIUM mmol/L 3.9 CHLORIDE mmol/L 103 CO2 mmol/L 24.0 BUN mg/dL 17.3 CREATININE mg/dL 0.92 GLUCOSE mg/dL 152* CALCIUM mg/dL 7.8* Results from last 7 days Lab Units 04/04/25 1447 ALK PHOS U/L 106 BILIRUBIN mg/dL 1.0 ALT (SGPT) U/L 26 AST (SGOT) U/L 25 Results from last 7 days Lab Units 04/04/25 1447 SED RATE mm/hr 51* Results from last 7 days Lab Units 04/04/25 1447 CRP mg/dL 8.57* Estimated Creatinine Clearance: 143.2 mL/min (by C-G formula based on SCr of 0.92 mg/dL). Microbiology: No results found for: ACANTHNAEG , AFBCX , BPERTUSSISCX , BLOODCX No results found for: BCIDPCR , CXREFLEX , CSFCX , CULTURETIS No results found for: CULTURES , HSVCX , URCX No results found for: EYECULTURE , GCCX , HSVCULTURE , LABHSV No results found for: LEGIONELLA , MRSACX , MUMPSCX , MYCOPLASCX No results found for: NOCARDIACX , STOOLCX No results found for: THROATCX , UNSTIMCULT , URINECX , CULTURE , VZVCULTUR No results found for: VIRALCULTU , WOUNDCX Radiology: Imaging Results (Last 72 Hours) Procedure Component Value Units Date/Time MRI Tibia Fibula Right With & Without Contrast [[id number]] Collected: 04/04/252256 Updated: 04/04/252302 Narrative: MRI TIBIA FIBULA RIGHT W WO CONTRAST Date of Exam: 04/04/2025 5:26 PM EDT Indication: right BKA amputation with pain, swelling, infx? fluid collection. Comparison: None available. Technique: Routine multiplanar/multisequence images of the right tibia and fibula were obtained before and after the uneventful intravenous administration of Vueway. Findings: Postsurgical changes are seen related to below-knee amputation. Soft tissue swelling is seen along the resection margin with diffuse skin thickening. This extends along the anterior aspect of the tibia. No focal collection identified. Mild enhancement is seen corresponding to this region diffusely. No drainable collection identified. There is a small patchy area of hypoattenuation present which may represent a small area of phlegmonous change ([id number] image 10) measuring approximately 1.6 cm which appears linear (series 15 image 37). The tibial stump demonstrates no significant edema or enhancement. No definite periosteal changes identified. Fibular resection margin appears unremarkable. Thereis no knee joint effusion. Musculature appears unremarkable with no evidence of focal atrophy. Impression: Impression: Postsurgical changes related to below-knee amputation with soft tissue swelling and skin thickeningseen along the resection margin extending along the anterior aspect of the tibia consistent with cellulitis. There is a small patchy area of hypoattenuation present which may represent a small area of phlegmonous change. No drainable collection identified. No definite osseous edema identified to suggest osteomyelitis. No knee joint effusion. Electronically Signed: Leigh Jones MD 04/04/2025 11:00 PM EDT Workstation ID: [id number] Impression: 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 (Treated by ID in [place] Dr. Harris). Dr. Trores treated him with very prolonged intravenousantibiotic therapy followed by a year of oral doxycycline due to concern about potential for relapse. He now has significant cellulitis over the right BKA stump with possible early abscess/phlegmon. He may require operative intervention per Dr. Dean. I will treat him with intravenous daptomycinand ceftriaxone pending further data. 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 HTN HLD Mood disorder PLAN/RECOMMENDATIONS: Thank you for asking us to see Won Dennis, I recommend the followin. Stop vancomycin 2. Intravenous daptomycin 3. Continue ceftriaxone 4. Possible surgical intervention per Dr. Dean This visit included the following complex service elements: Complex medical decision-making associated with antimicrobial prescribing. In-depth chart review with high level synthesis for complex diagnoses. Managed infection treatment protocol associated with transitions of care for this complex patient. Carlton Mead MD 04/05/2025 12:06 EDT documented in this encounter Nursing Notes * Bob Rosenberg RN - 04/09/2025 2:34 AM EDT Problem: Adult Inpatient Plan of Care Goal: Plan of Care Review Outcome: Progressing Goal: Patient-Specific Goal (Individualized) Outcome: Progressing Goal: Absence of Hospital-Acquired Illness or Injury Outcome: Progressing Intervention: Identify and Manage Fall Risk Recent Flowsheet Documentation Taken 04/09/2025 0000 by Bob Rosenberg RN Safety Promotion/Fall Prevention: assistive device/personal items within reach clutter free environment maintained fall prevention program maintained lighting adjusted nonskid shoes/slippers when out of bed room organization consistent safety round/check completed toileting scheduled Taken 04/08/20251942 by Bob Rosenberg RN Safety Promotion/Fall Prevention: assistive device/personal items within reach clutter free environment maintained fall prevention program maintained lighting adjusted nonskid shoes/slippers when out of bed room organization consistent safety round/check completed toileting scheduled Intervention: Prevent Skin Injury Recent Flowsheet Documentation Taken 04/09/2025 0000 by Bob Rosenberg RN Body Position: position changed independently left Taken 04/08/20251942 by Bob Rosenberg RN Body Position: position changed independently supine Skin Protection: incontinence pads utilized Intervention: Prevent and Manage VTE (Venous Thromboembolism) Risk Recent Flowsheet Documentation Taken 04/08/20251942 by Bob Rosenberg RN VTE Prevention/Management: bilateral SCDs (sequential compression devices) off patient refused intervention Intervention: Prevent Infection Recent Flowsheet Documentation Taken 04/09/2025 0000 by Bob Rosenberg RN Infection Prevention: environmental surveillance performed equipment surfaces disinfected hand hygiene promoted rest/sleep promoted single patient room provided Taken 04/08/20251942 by Bob Rosenberg RN Infection Prevention: environmental surveillance performed equipment surfaces disinfected hand hygiene promoted rest/sleep promoted single patient room provided Goal: Optimal Comfort and Wellbeing Outcome: Progressing Intervention: Monitor Pain and Promote Comfort Recent Flowsheet Documentation Taken 04/08/20252242 by Bob Rosenberg RN Pain Management Interventions: pain medication given Taken 04/08/20252036 by Bob Rosenberg RN Pain Management Interventions: care clustered pain management plan reviewed with patient/caregiver pain medication given pillow support provided position adjusted quiet environment facilitated Intervention: Provide Person-Centered Care Recent Flowsheet Documentation Taken 04/08/20251942 by Bob Rosenberg RN Trust Relationship/Rapport: care explained choices provided emotional support provided empathic listening provided questions answered questions encouraged thoughts/feelings acknowledged reassurance provided Goal: Readiness for Transition of Care Outcome: Progressing Problem: Pain Acute Goal: Optimal Pain Control and Function Outcome: Progressing Intervention: Optimize Psychosocial Wellbeing Recent Flowsheet Documentation Taken 04/08/20251942 by Bob Rosenberg RN Supportive Measures: active listening utilized Diversional Activities: television smartphone Intervention: Develop Pain Management Plan Recent Flowsheet Documentation Taken 04/08/20252242 by Bob Rosenberg RN Pain Management Interventions: pain medication given Taken 04/08/20252036 by Bob Rosenberg RN Pain Management Interventions: care clustered pain management plan reviewed with patient/caregiver pain medication given pillow support provided position adjusted quiet environment facilitated Intervention: Prevent or Manage Pain Recent Flowsheet Documentation Taken 04/09/2025 0000 by Bob Rosenberg RN Medication Review/Management: medications reviewed Taken 04/08/20251942 by Bob Rosenberg RN Sensory Stimulation Regulation: auditory stimulation minimized care clustered lighting decreased quiet environment promoted Sleep/Rest Enhancement: awakenings minimized Medication Review/Management: medications reviewed Problem: Infection Goal: Absence of Infection Signs and Symptoms Outcome: Progressing Problem: Comorbidity Management Goal: Maintenance of Asthma Control Outcome: Progressing Intervention: Maintain Asthma Symptom Control Recent Flowsheet Documentation Taken 04/09/2025 0000 by Bob Rosenberg RN Medication Review/Management: medications reviewed Taken 04/08/20251942 by Bob Rosenberg RN Medication Review/Management: medications reviewed Goal: Maintenance of Heart Failure Symptom Control Outcome: Progressing Intervention: Maintain Heart Failure Management Recent Flowsheet Documentation Taken 04/09/2025 by Bob Rosenberg RN Medication Review/Management: medications reviewed Taken 04/08/20251942 by Bob Rosenberg RN Medication Review/Management: medications reviewed Goal: Blood Pressure in Desired Range Outcome: Progressing Intervention: Maintain Blood Pressure Management Recent Flowsheet Documentation Taken 04/09/2025 by Bob Rosenberg RN Medication Review/Management: medications reviewed Taken 04/08/20251942 by Bob Rosenberg RN Medication Review/Management: medications reviewed Problem: Fall Injury Risk Goal: Absence of Fall and Fall-Related Injury Outcome: Progressing Intervention: Identify and Manage Contributors Recent Flowsheet Documentation Taken 04/09/2025 by Bob Rosenberg RN Medication Review/Management: medications reviewed Taken 04/08/20251942 by Bob Rosenberg RN Medication Review/Management: medications reviewed Intervention: Promote Injury-Free Environment Recent Flowsheet Documentation Taken 04/09/2025 by Bob Rosenberg RN Safety Promotion/Fall Prevention: assistive device/personal items within reach clutter free environment maintained fall prevention program maintained lighting adjusted nonskid shoes/slippers when out of bed room organization consistent safety round/check completed toileting scheduled Taken 04/08/20251942 by Bob Rosenberg RN Safety Promotion/Fall Prevention: assistive device/personal items within reach clutter free environment maintained fall prevention program maintained lighting adjusted nonskid shoes/slippers when out of bed room organization consistent safety round/check completed toileting scheduled Problem: Skin Injury Risk Increased Goal: Skin Health and Integrity Outcome: Progressing Intervention: Optimize Skin Protection Recent Flowsheet Documentation Taken 04/09/2025 by Bob Rosenberg RN Activity Management: activity encouraged Head of Bed (HOB) Positioning: HOB at 30-45 degrees Taken 04/08/20251942 by Bob Rosenberg RN Activity Management: activity encouraged Pressure Reduction Techniques: frequent weight shift encouraged heels elevated off bed weight shift assistance provided Head of Bed (HOB) Positioning: HOB at 30-45 degrees Pressure Reduction Devices: chair cushion utilized positioning supports utilized pressure-redistributing mattress utilized Skin Protection: incontinence pads utilized Goal Outcome Evaluation: * Susan Cavazos, PT - 04/06/2025 11:22 AM EDT Goal Outcome Evaluation: Plan of Care Reviewed With: patient Outcome Evaluation: PT evaluation completed. Pt demonstrated independence with all mobility including ambulating 100 feet using rw - no unsteadiness noted. Pt reports he feels at baseline and doesn'tthink he needs skilled PT while here. Recommend home at d/c. PT signing off. Anticipated Discharge Disposition (PT): home documented in this encounter OR Notes * Op Note - Sushil Dean Jr., MD - 04/08/2025 3:51 PM EDT [facility] OPERATIVE REPORT PATIENT NAME: Won Dennis DATE OF : 1980 PREOP DIAGNOSIS: Right Right below-knee amputation infection POSTOP DIAGNOSIS: Same. PROCEDURE: Right Right 48471: Secondary closure below-knee amputation SURGEON: Sushil Dean MD OPERATIVE TEAM: Cone Cleaner: Susi Grullon RN Scrub Person: Mary Paredes Scrub Person Extra: Hortencia Toribio Other: Katt Gotti RN; Charis Neville RN ANESTHETIST: Anesthesiologist: Ulises Hoffman MD HALL DIRECTOR: Stan Casillas CRNA Student Nurse Java Tech Lead: Karol Albert SRNA ANESTHESIA: Choice ESTIMATED BLOOD LOSS: @OREBL@ ml TOURNIQUET TIME: Not utilized. FINDINGS: Remaining tissue appeared healthy. Tension-free wound closure. No overt signs or symptomsof infection in the residual limb. IMPLANTS: None SPECIMENS: Specimens ID Source Type Tests Collected By Collected At Frozen? 1 Leg, Right Swab ANAEROBIC CULTURE FUNGAL CULTURE (Canceled) WOUND CULTURE AFB CULTURE (Canceled) Sushil Dean Jr., MD 04/08/25 6562 Description: RIGHT LEG DEEP WOUND FOR CULTURE COMPLICATIONS: None. DISPOSITION: Stable to recovery. INDICATIONS: 44 y.o. male with Right Right status post below-knee amputation debridement, irrigation with wound vacuum-assisted closure.I had a discussion with the patient regarding further management. After discussion of risks, benefits, alternatives, they were amenable to Right Right secondary closure of below-knee amputation with antibiotic cement placement. Risks of surgerywere discussed which included but were not limited to pain, bleeding, infection, damage to adjacentstructures, need for further surgery, wound healing complications, loss of limb and . The patient expressed verbal consent and written consent was obtained for the above procedure. NARRATIVE: Patient was identified in preoperative holding. Operative site was marked in indelible ink. History, physical, consent were reviewed and updated. Patient was surrendered to the anesthesia team and transported to the operative suite where anesthesia was induced. Hip bump was placed on theipsilateral side. Operative extremity was prepped and draped in the usual sterile fashion. The operative team donned sterile gowns and gloves and a timeout was called. All in attendance agreed regarding the patient's identity, proposed operative procedure, and operative site. Tourniquet was not utilized during this case. I had previously removed the wound vacuum-assisted closure device with care taken to remove all of the deep sponge. I then inspected the wounds, noted healthy tissue throughout, no evidence of tissuenecrosis or infection. I took swab specimens of the wound adjacent to the tibia which I sent for culture. I copiously irrigated the wounds with Xperience wound irrigant. I placed vancomycin powder into the wound. I placed a deep drain exiting superior laterally which was sewn in place. I then closed the proximal wound with monofilament suture. I closed the distal wound with #1 strata fix, 2-0 PDS, 2-0 nylon suture. Sterile dressing applied. Anesthesia was concluded and the patient was transported to the PACU in stable condition. Counts were correct x2. There were no apparent complications. I was present and scrubbed for the entire case. Sushil Dean Jr, MD 04/08/2025 * Op Note - Sushil Dean Jr., MD - 04/07/2025 9:03 PM EDT [facility] [address] [address] OPERATIVE REPORT PATIENT NAME: Won Dennis DATE OF : 1980 PREOP DIAGNOSIS: Right Right below knee amputation stump infection POSTOP DIAGNOSIS: Same. PROCEDURE: Right Right 94274: Incision and drainage of surgical site infection 44907: Debridement of skin, subcutaneous tissue, muscle 10659: Wound vacuum-assisted closure SURGEON: Sushil Dean MD OPERATIVE TEAM: Cone Cleaner: Anum Sanchez RN Scrub Person: Hortencia Toribio; Gerald Ivey SPEEDOMETER INSPECTOR: Anesthesiologist: Luci Alonso DO ANESTHESIA: General ESTIMATED BLOOD LOSS: 30 mL TOURNIQUET TIME: Not utilized FINDINGS: Remaining tissue appeared healthy. IMPLANTS: None DRAINS: Wound vacuum-assisted closure. COMPLICATIONS: None. DISPOSITION: Stable to recovery. 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 He had postoperative infections, underwent revision below the knee amputation. He had done well for approximately 2 years, began having pain and swelling over the past month which he attributed to prosthetic fitting. He was admitted with cellulitis. Initial MRI demonstrated predominantly cellulitis, concern for possible fluid collection. Repeat MRI obtained earlier today demonstrated concern for abscess. I had a discussion with him regarding further management. After discussion of risk,benefits, alternatives, he wished to proceed with right leg debridement, irrigation, wound vacuum-assisted closure. Risks of surgery were discussed which included but were not limited to pain, bleeding, infection, damage to adjacent structures, need for further surgery, wound healing complications,loss of limb and . The patient expressed verbal consent and written consent was obtained for the above procedure. NARRATIVE: Patient was identified in preoperative holding. Operative site was marked in indelible ink. History, physical, consent were reviewed and updated. Patient was surrendered to the anesthesia team and transported to the operative suite where anesthesia was induced. Ipsilateral hip bump was placed. Operative extremity was prepped and draped in the usual sterile fashion. The operative team donned sterile gowns and gloves and a timeout was called. All in attendance agreed regarding the patient's identity, proposed operative procedure, and operative site. I confirmed the location of the tibial tubercle in order to access the fluid collection noted on MRI fluoroscopically. I also confirmed location of the distal tibia. I made a longitudinal incision lateral to the tibia, just distal to the tibial tubercle. I dissected through skin and subcutaneous tissue, noted a small amount of liquefied subcutaneous tissue with adjacent clear fluid, swab specimens of which I sent for culture. I then excised the scarred middle third of his prior distal incision. Utilizing a 15 blade scalpel and Bovie electrocautery I excised skin, subcutaneous tissue, muscle/fascia in order to gain access to the distal tibia. This was an excisional debridement. Deepest layer was muscle/fascia. I took swab specimens of this area, noted minimal fluid. I sent a portion of soft tissue immediately adjacent to the distal tibia for cultures as well. I was able to pass a suction tip along the lateral border of the tibia, connecting the proximal wound with the distal wound. I copiously irrigated along this tissue plane, copiously irrigated both wounds with Irrisept and experience wound irrigant. The proximal wound measured approximately 3 cm x 1 cm x 2 cm depth. The distal wound measured approximately 8 cm x 3 cm x 4 cm depth. Wound vacuum-assisted closure device was applied which was noted to have good seal. This was bridged superficially. There was 1 deep black sponge distally, 1 deep black sponge proximally. Sterile dressing was applied. Counts were correct x2. There were no apparent complications. I was present and scrubbed for the entire case. Sushil Dean Jr, MD 04/07/2025 documented in this encounter ED Notes * Mario Crowley DO - 04/04/2025 2:28 PM EDT Images from the original note were not included. EMERGENCY DEPARTMENT ENCOUNTER Pt Name: Won Dennis Birthdate: 1980 Date of evaluation: 04/04/2025 Provider: Mario Crowley DO CHIEF COMPLAINT Chief Complaint Patient presents with Leg Swelling HPI Stated Reason for Visit: pt sts that he has a btk amputation of R leg since 2022. noticed 3 days ago swellling of the area. seen at [facility] yesterday for CT and US, here for MRI per pt Jermaine wanted to have scan and bloodworkHistory Obtained From: patient HISTORY OF PRESENT ILLNESS (Location/Symptom, Timing/Onset, Context/Setting, Quality, Duration, Modifying Factors, Severity.) Won Dennis is a 44 y.o. male who presents to the emergency department for evaluation of swelling and discomfort to his right lower extremity as he has a right below-knee amputation which was completed with his specialist Dr. Dean. Is been following with him over the last few years with 12 previous surgeries and interventions he is noting that about 3 weeks ago he had a new prosthesis fitted and I feel like this may have been rubbing on the anterior aspect of the amputation site which iscausing swelling to the area to the point we cannot get the prosthesis on, he notes some some redness swelling and soreness on the anterior lower part of the amputation stump and he was seen at an outside hospital yesterday. He had blood work CT scan ultrasound with a possible fluid collection. He discussed further with Dr. Dean who recommended he come to the emergency department for labs, imaging including an MRI for further assessment. Patient notes maybe a low-grade fever but has not hadany recent antibiotic usage. Is been off the doxycycline now for about a year. He notes some pain discomfort to the area which has not drained in general. Patient denies any other falls or major trauma. He is no other acute systemic complaints. Nursing notes were reviewed. PAST MEDICAL HISTORY No past medical history on file. SURGICAL HISTORY No past surgical history on file. CURRENT MEDICATIONS Current Facility-Administered Medications: cefTRIAXone (ROCEPHIN) 2,000 mg in sodium chloride 0.9 % 100 mL MBP, 2,000 mg, Intravenous, Once, Mario Crowley DO Morphine sulfate (PF) injection 4 mg, 4 mg, Intravenous, Q30 Min PRN, Mario Crowley DO, 4 mg at 04/04/25 1750 [COMPLETED] Insert Peripheral IV, , , Once AND sodium chloride 0.9 % flush 10 mL, 10 mL, Intravenous, PRN, Mario Crowley DO vancomycin 2750 mg/500 mL 0.9% NS IVPB ([facility]), 20 mg/kg, Intravenous, Once, Mario Crowley DO No current outpatient medications on file. ALLERGIES Patient has no known allergies. FAMILY HISTORY No family history on file. SOCIAL HISTORY Social History Socioeconomic History Marital status: Unknown PHYSICAL EXAM Vitals: 04/04/25 1900 04/04/25 1907 04/04/25 1915 04/04/25 1930 BP: 136/86 143/88 137/86 Pulse: 90 89 86 95 Resp: Temp: TempSrc: SpO2: 95% 92% 96% 93% Weight: Height: Physical Exam General : Patient is awake, alert, oriented, in no acute distress, nontoxic appearing HEENT: Pupils are equally round, EOMI, conjunctivae clear Neck: Neck is supple, full range of motion, trachea midline Cardiac: Heart tachycardic rate with regular rhythm, no murmurs, rubs, or gallops Lungs: Lungs are clear to auscultation, there is no wheezing, rhonchi, or rales. There is no use ofaccessory muscles Abdomen: Abdomen is soft, nontender, nondistended. There are no firm or pulsatile masses, no rebound rigidity or guarding Musculoskeletal: Right lower extremity with below-knee amputation which is depicted below, there issome soft tissue swelling, may have a little pocket formation of fluid in the anterior lower aspectof the leg, has no active drainage noted. This is sore and tender to touch, very slightly warm to touch. 5 out of 5 strength in remaining extremities. No focal muscle deficits are appreciated DIAGNOSTIC RESULTS EKG: All EKGs are interpreted by the Emergency Department Physician who either signs or Co-signs this chart in the absence of a processing technician. No orders to display RADIOLOGY: [x] Radiologist's Report Reviewed: MRI Tibia Fibula Right With & Without Contrast (Results Pending) I ordered and independently reviewed the above noted radiographic studies. I viewed images of MRI of lower extremity which showed cellulitic changes around the right knee stump, no obvious fluid collection per my independent interpretation. See radiologist's dictation for official interpretation. LABS: I have reviewed and interpreted all of the currently available lab results from this visit (if applicable): Results for orders placed or performed during the hospital encounter of 04/04/25 Comprehensive Metabolic Panel Collection Time: 04/04/25 2:47 PM Specimen: Blood Result Value Ref Range Glucose 90 65 - 99 mg/dL BUN 18.3 6.0 - 20.0 mg/dL Creatinine 0.94 0.76 - 1.27 mg/dL Sodium 136 136 - 145 mmol/L Potassium 3.8 3.5 - 5.2 mmol/L Chloride 100 98 - 107 mmol/L CO2 25.3 22.0 - 29.0 mmol/L Calcium 8.6 8.6 - 10.5 mg/dL Total Protein 7.3 6.0 - 8.5 g/dL Albumin 4.1 3.5 - 5.2 g/dL ALT (SGPT) 26 1 - 41 U/L AST (SGOT) 25 1 - 40 U/L Alkaline Phosphatase 106 39 - 117 U/L Total Bilirubin 1.0 0.0 - 1.2 mg/dL Globulin 3.2 gm/dL A/G Ratio 1.3 g/dL BUN/Creatinine Ratio 19.5 7.0 - 25.0 Anion Gap 10.7 5.0 - 15.0 mmol/L eGFR 102.5 >60.0 mL/min/1.73 Sedimentation Rate Collection Time: 04/04/25 2:47 PM Specimen: Blood Result Value Ref Range Sed Rate 51 (H) 0 - 15 mm/hr C-reactive Protein Collection Time: 04/04/25 2:47 PM Specimen: Blood Result Value Ref Range C-Reactive Protein 8.57 (H) 0.00 - 0.50 mg/dL CBC Auto Differential Collection Time: 04/04/25 2:47 PM Specimen: Blood Result Value Ref Range WBC 12.72 (H) 3.40 - 10.80 10*3/mm3 RBC 5.64 4.14 - 5.80 10*6/mm3 Hemoglobin 15.3 13.0 - 17.7 g/dL Hematocrit 47.9 37.5 - 51.0 % MCV 84.9 79.0 - 97.0 fL MCH 27.1 26.6 - 33.0 pg MCHC 31.9 31.5 - 35.7 g/dL RDW 13.1 12.3 - 15.4 % RDW-SD 40.3 37.0 - 54.0 fl MPV 9.4 6.0 - 12.0 fL Platelets 232 140 - 450 10*3/mm3 Neutrophil % 74.9 42.7 - 76.0 % Lymphocyte % 13.1 (L) 19.6 - 45.3 % Monocyte % 11.2 5.0 - 12.0 % Eosinophil % 0.4 0.3 - 6.2 % Basophil % 0.2 0.0 - 1.5 % Immature Grans % 0.2 0.0 - 0.5 % Neutrophils, Absolute 9.52 (H) 1.70 - 7.00 10*3/mm3 Lymphocytes, Absolute 1.66 0.70 - 3.10 10*3/mm3 Monocytes, Absolute 1.43 (H) 0.10 - 0.90 10*3/mm3 Eosinophils, Absolute 0.05 0.00 - 0.40 10*3/mm3 Basophils, Absolute 0.03 0.00 - 0.20 10*3/mm3 Immature Grans, Absolute 0.03 0.00 - 0.05 10*3/mm3 nRBC 0.0 0.0 - 0.2 /100 WBC If labs were ordered, I independently reviewed the results and considered them in treating the patient. EMERGENCY DEPARTMENT COURSE and DIFFERENTIAL DIAGNOSIS/MDM: Vitals: OF 19:45 EDT BP - 137/86 HR - 95 TEMP - 99.2 ??F (37.3 ??C) (Oral) O2 SATS - 93% Orders placed during this visit: Orders Placed This Encounter Procedures MRI Tibia Fibula Right With & Without Contrast Comprehensive Metabolic Panel Sedimentation Rate C-reactive Protein CBC Auto Differential Obtain medical records Insert Peripheral IV CBC & Differential All labs have been independently reviewed by me. All radiology studies have been reviewed by me andthe radiologist dictating the report. All EKG's have been independently viewed and interpreted by me. Discussion below represents my analysis of pertinent findings related to patient's condition, differential diagnosis, treatment plan and final disposition. Differential diagnosis: The differential diagnosis associated with the patient's presentation includes: Cellulitis, hematoma, abscess formation, contact irritation, extremity swelling Additional sources Discussed/ obtained information from independent historians: [] Spouse [] Parent [] Family member [] Friend [] EMS [] Other: External (non-ED) record review: [] Inpatient record: [] Office record: [] Outpatient record: [] Prior Outpatient labs: [] Prior Outpatient radiology: [] Primary Care record: [] Outside ED record: [] Other: Patient's care impacted by: [] Diabetes [] Hypertension [] CHF [] Hyperlipidemia [] Coronary Artery Disease [] COPD [] Cancer [] Tobacco Abuse [] Substance Abuse [x] Other: history of Leiden deficiency, blood clotting disorder, prior leg amputation Care significantly affected by Social Determinants of Health (housing and economic circumstances, unemployment) [] Yes [x] No If yes, Patient's care significantly limited by Social Determinants of Health including: [] Inadequate housing [] Low income [] Alcoholism and drug addiction in family [] Problems related to primary support group [] Unemployment [] Problems related to employment [] Other Social Determinants of Health: MEDICATIONS ADMINISTERED IN ED: Medications sodium chloride 0.9 % flush 10 mL (has no administration in time range) Morphine sulfate (PF) injection 4 mg (4 mg Intravenous Given 04/04/251749) vancomycin 2750 mg/500 mL 0.9% NS IVPB ([facility]) (has no administration in time range) cefTRIAXone (ROCEPHIN) 2,000 mg in sodium chloride 0.9 % 100 mL MBP (has no administration in time range) ondansetron (ZOFRAN) injection 4 mg (4 mg Intravenous Given 04/04/251749) Gadopiclenol (VUEWAY) injection 7.5 mL (13.5 mL Intravenous Given 04/04/251754) This is a very pleasant 44-year-old male who unfortunately has had issues with his right lower extremity requiring a right below-knee amputation. He presents today secondary to pain and swelling possible inflammation/infection of the stump site. He is nontoxic-appearing, we will attempt to obtain the records from the outside facility, we will move forward with MRI blood work, labs including MRI imaging for further assessment. Plan to discuss further with Dr. Dean with the results. Patient has a CBC white count of 12.7, H&H are stable, kidney function liver function are normal. His ESRsed rate are elevated. MRI with cellulitic changes throughout the right leg stump. Will start patient on vancomycin, Rocephin. He was seen by Dr. Dean in the ED who recommends hospitalization andhe will follow along with treatment therapy discussions. Case discussed with hospitalist Dr. Shepherd. PROCEDURES: Procedures CRITICAL CARE TIME Total Critical Care time was 0 minutes, excluding separately reportable procedures. There was a high probability of clinically significant/life threatening deterioration in the patient's condition which required my urgent intervention. FINAL IMPRESSION 1. Cellulitis of right lower extremity 2. Below-knee amputation of right lower extremity, initial encounter DISPOSITION/PLAN ED Disposition ED Disposition Decision to Admit Condition -- Comment -- Comment: Please note this report has been produced using speech recognition software. Mario Crowley DO Attending Emergency Physician Mario Crowley DO 04/04/251945 documented in this encounter Miscellaneous Notes * Case Management/Social Work - Omar Zavala RN - 04/11/2025 1:30 PM EDT Continued Stay Note Prentiss Patient Name: Won Dennis Today's Date: 04/11/2025 Admit Date: 04/04/2025 Plan: Home with outpatient infusion. Discharge Plan Row Name 04/11/25 1155 Plan Plan Home with outpatient infusion. Final Discharge Disposition Code 01 - home or self-care Final Note Patient discharging today. He is discharging home with outpatient infusion at [facility]. He has an appointment with [facility] at 8:00 am tomorrow. They will do PICC line dressing changes. DEBRA has spoke with Dena at [facility] today multiple times to get setup due to insurance issues. There is no other discharge needs at this time. He has private transport. Discharge Codes No documentation. Expected Discharge Date and Time Expected Discharge Date Expected Discharge Time Apr 11, 2025 Kathy Johnson RN * Case Management/Social Work - Omar Zavala RN - 04/10/2025 4:57 PM EDT Continued Stay Note Nilda Patient Name: Won Dennis Today's Date: 04/10/2025 Admit Date: 04/04/2025 Plan: Home Discharge Plan Row Name 04/10/25 1636 Plan Plan Home Patient/Family in Agreement with Plan yes Plan Comments DEBRA spoke with the patient at bedside today. Patient was going to get IV ABX at home with [facility]; however, Medicaid lapsed on 04/08. DEBRA was unaware until this morning that Medicaid has lapsed. Patient explained that he has Medicare A and B. CM spoke with KELLEE and given themhis Medicare number [id number], she sent it to Admission. DEBRA spoke with Kerri, with [facility], and explained that he had Medicare A and B. However, it will not cover home infusion. It will be $64.00 a day out of packet. Patients can go to the Infusion center at [facility], and it will cover the cost as an outpatient. He will need to go there every day for infusion. They will be able to do the patients' PICC line dressing changes and lab work. CM called [facility] Outpatient infusion center they can accept patient and start him. He is known for their facility. The Facility will need to run it through his insurance first. CM faxed the orders over to [facility] at [phone]. CM will follow up with them tomorrow at [facility] to make sure they received the orders. Patient is hoping for discharge tomorrow. CM will follow and updated when more is known. Final Discharge Disposition Code 01 - home or self-care Discharge Codes No documentation. Expected Discharge Date and Time Expected Discharge Date Expected Discharge Time Apr 10, 2025 Kathy Johnson RN * Case Management/Social Work - Omar Zavala RN - 04/09/2025 2:51 PM EDT Continued Stay Note Nilda Patient Name: Won Dennis Today's Date: 04/09/2025 Admit Date: 04/04/2025 Plan: Home Discharge Plan Row Name 04/09/25 1311 Plan Plan Home Patient/Family in Agreement with Plan yes Plan Comments CM spoke with patient at bedside today[facility] Patient getting PICC line today for ABX therapy. Patient states that he has done ABX at home before and feels comfortable with doing them himself. Mr. Dennis is thinking that he will likely discharge tomorrow. CM is following for discharge needs. Final Discharge Disposition Code 01 - home or self-care Discharge Codes No documentation. Kathy Johnson, RN * Case Management/Social Work - Omar Zavala RN - 04/07/2025 11:49 AM EDT Images from the original note were not included. Discharge Planning Assessment Prentiss Patient Name: Won Dennis Today's Date: 04/07/2025 Admit Date: 04/04/2025 Plan: Home Discharge Needs Assessment Row Name 04/07/25 1149 Discharge Needs Assessment Equipment Needed After Discharge wheelchair, manual Row Name 04/07/25 1144 Living Environment People in Home spouse Current Living Arrangements home Potentially Unsafe Housing Conditions none In the past 12 months has the electric, gas, oil, or water company threatened to shut off services in your home? No Able to Return to Prior Arrangements no Resource/Environmental Concerns Resource/Environmental Concerns none Transportation Concerns none Transportation Needs In the past 12 months, has lack of transportation kept you from medical appointments or from getting medications? no In the past 12 months, has lack of transportation kept you from meetings, work, or from getting things needed for daily living? 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 Patient lives with and his 5 kids in [facility]. 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 He has walker, cane, shower chair, and crutches. He requested a wheelchair for home. CM will order wheelchair through [employer]. He is not current with home health services. PCP is Dr. Jordan. Insurance is [facility] Medicaid [place]. Patient discharge plan is home with priavte transport. CM will follow for any discharge needs. Final Discharge Disposition Code 01 - home or self-care Continued Care and Services - Admitted Since 04/04/2025 No active coordination exists. Demographic Summary Row Name 04/07/25 1143 General Information Arrived From hospital Preferred Language [place] Functional Status Row Name 04/07/25 1143 Functional Status Usual Activity Tolerance moderate Current Activity Tolerance moderate Physical Activity On average, how many days per week do you engage in moderate to strenuous exercise (like a brisk walk)? 0 days On average, how many minutes do you engage in exercise at this level? 0 min Number of minutes of exercise per week 0 Functional Status, IADL Medications independent Meal Preparation independent Housekeeping independent Laundry independent Shopping independent Mental Status General Appearance WDL WDL Psychosocial No documentation. Abuse/Neglect No documentation. Legal No documentation. Substance Abuse No documentation. Patient Forms No documentation. 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, Leg, Right Microbiology Routine Right BKA infection 04/07/2025 9:13 PM EDT documented as of this encounter Procedures Procedure Name Priority Date/Time Associated Diagnosis Comments CBC WITH AUTO DIFFERENTIAL Routine 04/11/2025 3:40 AM EDT CBC AND DIFFERENTIAL Routine 04/11/2025 3:40 AM EDT COMPREHENSIVE METABOLIC PANEL Routine 04/11/2025 3:40 AM EDT HEPARIN ANTI XA Timed 04/10/2025 3:46 AM EDT CBC WITH AUTO DIFFERENTIAL Routine 04/10/2025 3:46 AM EDT CBC AND DIFFERENTIAL Routine 04/10/2025 3:46 AM EDT BASIC METABOLIC PANEL Routine 04/10/2025 3:46 AM EDT HEPARIN ANTI XA Timed 04/09/2025 10:05 AM EDT HEPARIN ANTI XA Timed 04/09/2025 4:18 AM EDT CBC WITH AUTO DIFFERENTIAL Routine 04/09/2025 4:18 AM EDT CBC AND DIFFERENTIAL Routine 04/09/2025 4:18 AM EDT BASIC METABOLIC PANEL Routine 04/09/2025 4:18 AM EDT WOUND CULTURE Routine 04/08/2025 3:40 PM EDT Right BKA infection ANAEROBIC CULTURE Routine 04/08/2025 3:4 0 PM EDT Right BKA infection IN SEC ABDOMINAL WALL SUTURE EVISCERATION/DEHSN 04/08/2025 3:20 PM EDT Right BKA infection Special Needs * DEBRIDEMENT FOOT 04/08/2025 3:20 PM EDT Right BKA infection Special Needs * HEPARIN ANTI XA Timed 04/08/2025 8:41 AM EDT SCAN SLIDE Routine 04/08/2025 8:41 AM EDT CBC WITH AUTO DIFFERENTIAL Routine 04/08/2025 8:41 AM EDT CBC AND DIFFERENTIAL Routine 04/08/2025 8:41 AM EDT BASIC METABOLIC PANEL Routine 04/08/2025 8:41 AM EDT FL C ARM DURING SURGERY Routine 04/07/2025 9:32 PM EDT WOUND CULTURE Routine 04/07/2025 9:14 PM EDT Right BKA infection ANAEROBIC CULTURE Routine 04/07/2025 9:1 4 PM EDT Right BKA infection AFB CULTURE Routine 04/07/2025 9:13 PM EDT Right BKA infection TISSUE / BONE CULTURE Routine 04/07/2025 9:13 PM EDT Right BKA infection FUNGAL CULTURE Routine 04/07/2025 9:13 PM EDT Right BKA infection ANAEROBIC CULTURE Routine 04/07/2025 9:1 3 PM EDT WOUND CULTURE Routine 04/07/2025 9:07 PM EDT Right BKA infection ANAEROBIC CULTURE Routine 04/07/2025 9:0 7 PM EDT Right BKA infection PLACEMENT OF WOUND VAC 04/07/2025 8:36 PM EDT Right BKA infection LOWER EXTREMITY DEBRIDEMENT 04/07/2025 8:36 PM EDT Right BKA infection HEPARIN ANTI XA Timed 04/07/2025 9:10 AM EDT CBC WITH AUTO DIFFERENTIAL Routine 04/07/2025 9:10 AM EDT CBC AND DIFFERENTIAL Routine 04/07/2025 9:10 AM EDT BASIC METABOLIC PANEL Routine 04/07/2025 9:10 AM EDT MRI TIBIA FIBULA RIGHT W WO CONTRAST STAT 04/07/2025 9:00 AM EDT HEPARIN ANTI XA Timed 04/07/2025 1:42 AM EDT HEPARIN ANTI XA Timed 04/06/2025 7:16 PM EDT POTASSIUM Timed 04/06/2025 7:16 PM EDT HEPARIN ANTI XA Timed 04/06/2025 12:36 PM EDT HEPARIN ANTI XA Timed 04/06/2025 3:42 AM EDT BASIC METABOLIC PANEL Routine 04/06/2025 3:42 AM EDT CBC WITH AUTO DIFFERENTIAL Routine 04/06/2025 3:41 AM EDT CBC AND DIFFERENTIAL Routine 04/06/2025 3:41 AM EDT HEPARIN ANTI XA Timed 04/05/2025 8:43 PM EDT HEPARIN ANTI XA Timed 04/05/2025 12:15 PM EDT CK Routine 04/05/2025 12:15 PM EDT HEPARIN ANTI XA Routine 04/05/2025 3:54 AM EDT CBC WITH AUTO DIFFERENTIAL Routine 04/05/2025 3:54 AM EDT APTT Routine 04/05/2025 3:54 AM EDT CBC AND DIFFERENTIAL Routine 04/05/2025 3:54 AM EDT BASIC METABOLIC PANEL Routine 04/05/2025 3:54 AM EDT HEPARIN ANTI XA STAT 04/05/2025 12:18 AM EDT APTT STAT 04/05/2025 12:18 AM EDT PROTIME-INR STAT 04/05/2025 12:18 AM EDT MRI TIBIA FIBULA RIGHT W WO CONTRAST STAT 04/04/2025 5:54 PM EDT POCT CREATININE Routine 04/04/2025 2:49 PM EDT CBC WITH AUTO DIFFERENTIAL STAT 04/04/2025 2:47 PM EDT SEDIMENTATION RATE STAT 04/04/2025 2: 47 PM EDT CBC AND DIFFERENTIAL STAT 04/04/2025 2:47 PM EDT C-REACTIVE PROTEIN STAT 04/04/2025 2: 47 PM EDT COMPREHENSIVE METABOLIC PANEL STAT 04/04/2025 2:47 PM EDT documented in this encounter Results * (ABNORMAL) CBC Auto Differential (04/11/2025 3:40 AM EDT) [facility] WBC 7.87 3.40 - 10.80 10*3/mm3 04/11/2025 4:02 AM EDT [facility] RBC 4.70 4.14 - 5.80 10*6/mm3 04/11/2025 4:02 AM EDT [facility] Hemoglobin 12.8(L) 13.0 - 17.7 g/dL 04/11/2025 4:02 AM EDT [facility] Hematocrit 40.5 37.5 - 51.0 % 04/11/2025 4:02 AM EDT [facility] MCV 86.2 79.0 - 97.0 fL 04/11/2025 4:02 AM EDT [facility] MCH 27.2 26.6 - 33.0 pg 04/11/2025 4:02 AM EDT [facility] MCHC 31.6 31.5 - 35.7 g/dL 04/11/2025 4:02 AM EDT [facility] RDW 12.9 12.3 - 15.4 % 04/11/2025 4:02 AM EDT [facility] RDW-SD 40.5 37.0 - 54.0 fl 04/11/2025 4:02 AM EDT [facility] MPV 9.2 6.0 - 12.0 fL 04/11/2025 4:02 AM EDT [facility] Platelets 267 140 - 450 10*3/mm3 04/11/2025 4:02 AM [facility] Neutrophil % 59.5 42.7 - 76.0 % 04/11/2025 4:02 AM [facility] Lymphocyte % 26.3 19.6 - 45.3 % 04/11/2025 4:02 AM [facility] Monocyte % 9.3 5.0 - 12.0 % 04/11/2025 4:02 AM [facility] Eosinophil % 4.1 0.3 - 6.2 % 04/11/2025 4:02 AM [facility] Basophil % 0.4 0.0 - 1.5 % 04/11/2025 4:02 AM [facility] Immature Grans % 0.4 0.0 - 0.5 % 04/11/2025 4:02 AM [facility] Neutrophils, Absolute 4.69 1.70 - 7.00 10*3/mm3 04/11/2025 4:02 AM [facility] Lymphocytes, Absolute 2.07 0.70 - 3.10 10*3/mm3 04/11/2025 4:02 AM [facility] Monocytes, Absolute 0.73 0.10 - 0.90 10*3/mm3 04/11/2025 4:02 AM [facility] Eosinophils, Absolute 0.32 0.00 - 0.40 10*3/mm3 04/11/2025 4:02 AM [facility] Basophils, Absolute 0.03 0.00 - 0.20 10*3/mm3 04/11/2025 4:02 AM [facility] Immature Grans, Absolute 0.03 0.00 - 0.05 10*3/mm3 04/11/2025 4:02 AM [facility] nRBC 0.0 0.0 - 0.2 /100 WBC 04/11/2025 4:02 AM [facility] Blood Venipuncture / Unknown 04/11/2025 3:40 AM EDT 04/11/2025 3:59 AM EDT us Sushil Dean Jr., MD LAB BLOOD ORDERABLES Fi nal Result [facility]
[address] [place] [address], * (ABNORMAL) Comprehensive Metabolic Panel (04/11/2025 3:40 AM EDT) Glucose 108(H) 65 - 99 mg/dL 04/11/2025 4:19 AM EDT [facility] BUN 12.5 6.0 - 20.0 mg/dL 04/11/2025 4:19 AM EDT [facility] Creatinine 0.68(L) 0.76 - 1.27 mg/dL 04/11/2025 4:19 AM EDT [facility] Sodium 140 136 - 145 mmol/L 04/11/2025 4:19 AM EDT [facility] Potassium 3.8 3.5 - 5.2 mmol/L 04/11/2025 4:19 AM EDT [facility] Chloride 105 98 - 107 mmol/L 04/11/2025 4:19 AM EDT [facility] CO2 28.2 22.0 - 29.0 mmol/L 04/11/2025 4:19 AM EDT [facility] Calcium 8.2(L) 8.6 - 10.5 mg/dL 04/11/2025 4:19 AM EDT [facility] Total Protein 6.1 6.0 - 8.5 g/dL 04/11/2025 4:19 AM EDT [facility] Albumin 3.1(L) 3.5 - 5.2 g/dL 04/11/2025 4:19 AM EDT [facility] ALT (SGPT) 52(H) 1 - 41 U/L 04/11/2025 4:19 AM EDT [facility] AST (SGOT) 40 1 - 40 U/L 04/11/2025 4:19 AM EDT [facility] Alkaline Phosphatase 99 39 - 117 U/L 04/11/2025 4:19 AM EDT [facility] Total Bilirubin 0.2 0.0 - 1.2 mg/dL 04/11/2025 4:19 AM EDT [facility] Globulin 3.0 gm/dL 04/11/2025 4:19 AM EDT [facility] Comment:Calculated Result A/G Ratio 1.0 g/dL 04/11/2025 4:19 AM EDT [facility] BUN/Creatinine Ratio 18.4 7.0 - 25.0 04/11/2025 4:19 AM EDT [facility] Anion Gap 6.8 5.0 - 15.0 mmol/L 04/11/2025 4:19 AM EDT [facility] eGFR 117.5 >60.0 mL/min/1.7 3 04/11/2025 4:19 AM EDT [facility] Blood Venipuncture / Unknown 04/11/2025 3:40 AM EDT 04/11/2025 3:56 AM EDT [facility] - 04/11/2025 4:19 AM EDT GFR Categories in Chronic Kidney Disease (CKD) GFR Category GFR (mL/min/1.73) Interpretation G1 90 or greater Normal or high (1) G2 60-89 Mild decrease (1) G3a 45-59 Mild to moderate decrease G3b 30-44 Moderate to severe decrease G4 15-29 Severe decrease G5 14 or less Kidney failure (1)In the absence of evidence of kidney disease, neither GFR category G1 or G2 fulfill the criteria for CKD. eGFR calculation 2020 CKD-EPI creatinine equation, which does not include race as a factor us Rosario Hill APRN LAB BLOOD ORDERABLES Final Result [facility]
[address] [place] [address], * (ABNORMAL) CBC Auto Differential (04/10/2025 3:46 AM EDT) [facility] WBC 9.60 3.40 - 10.80 10*3/mm3 04/10/2025 3:56 AM EDT [facility] RBC 4.67 4.14 - 5.80 10*6/mm3 04/10/2025 3[facility] Hemoglobin 12.9(L) 13.0 - 17.7 g/dL 04/10/2025 3:56 AM EDT [facility] Hematocrit 40.1 37.5 - 51.0 % 04/10/2025 3:56 [facility] MCV 85.9 79.0 - 97.0 fL 04/10/2025 3:56 [facility] MCH 27.6 26.6 - 33.0 pg 04/10/2025 3:56 AM [facility] MCHC 32.2 31.5 - 35.7 g/dL 04/10/2025 3:56 [facility] RDW 12.9 12.3 - 15.4 % 04/10/2025 3:56 AM [facility] RDW-SD 40.5 37.0 - 54.0 fl 04/10/2025 3:56 AM [facility] MPV 9.5 6.0 - 12.0 fL 04/10/2025 3:56 AM [facility] Platelets 227 140 - 450 10*3/mm3 04/10/2025 3:56 AM EDT [facility] Neutrophil % 59.1 42.7 - 76.0 % 04/10/2025 3:56 AM [facility] Lymphocyte % 29.0 19.6 - 45.3 % 04/10/2025 3:56 [facility] Monocyte % 8.1 5.0 - 12.0 % 04/10/2025 3:56 [facility] Eosinophil % 3.2 0.3 - 6.2 % 04/10/2025 3:56 AM EDT [facility] Basophil % 0.4 0.0 - 1.5 % 04/10/2025 3:56 AM EDT [facility] Immature Grans % 0.2 0.0 - 0.5 % 04/10/2025 3:56 AM EDT [facility] Neutrophils, Absolute 5.67 1.70 - 7.00 10*3/mm3 04/10/2025 3:56 AM EDT [facility] Lymphocytes, Absolute 2.78 0.70 - 3.10 10*3/mm3 04/10/2025 3:56 AM EDT [facility] Monocytes, Absolute 0.78 0.10 - 0.90 10*3/mm3 04/10/2025 3:56 AM EDT [facility] Eosinophils, Absolute 0.31 0.00 - 0.40 10*3/mm3 04/10/2025 3:56 AM EDT [facility] Basophils, Absolute 0.04 0.00 - 0.20 10*3/mm3 04/10/2025 3:56 AM EDT [facility] Immature Grans, Absolute 0.02 0.00 - 0.05 10*3/mm3 04/10/2025 3:56 AM EDT [facility] nRBC 0.0 0.0 - 0.2 /100 WBC 04/10/2025 3:56 AM EDT [facility] Blood Venipuncture / Unknown 04/10/2025 3:46 AM EDT 04/10/2025 3:53 AM EDT Jason Álvarez DO LAB BLOOD ORDERABLES Final Resul t [facility]
[address] [place] [address], * (ABNORMAL) Basic Metabolic Panel (04/10/2025 3:46 AM EDT) [facility] Glucose 125(H) 65 - 99 mg/dL 04/10/2025 4:20 AM EDT [facility] BUN 15.9 6.0 - 20.0 mg/dL 04/10/2025 4:20 AM T [facility] Creatinine 0.77 0.76 - 1.27 mg/dL 04/10/2025 4:20 AM T [facility] Sodium 137 136 - 145 mmol/L 04/10/2025 4:20 AM [facility] Potassium 3.9 3.5 - 5.2 mmol/L 04/10/2025 4:20 AM EDT [facility] Chloride 102 98 - 107 mmol/L 04/10/2025 4:20 AM EDT [facility] CO2 26.9 22.0 - 29.0 mmol/L 04/10/2025 4:20 AM [facility] Calcium 7.9(L) 8.6 - 10.5 mg/dL 04/10/2025 4:20 AM [facility] BUN/Creatinine Ratio 20.6 7.0 - 25.0 04/10/2025 4:20 AM [facility] Anion Gap 8.1 5.0 - 15.0 mmol/L 04/10/2025 4:20 AM [facility] eGFR 113.2 >60.0 mL/min/1.7 3 04/10/2025 4:20 AM [facility] Blood Venipuncture / Unknown 04/10/2025 3:46 AM EDT 04/10/2025 3:52 AM EDT [facility] - 04/10/2025 4:20 AM EDT GFR Categories in Chronic Kidney Disease (CKD) GFR Category GFR (mL/min/1.73) Interpretation G1 90 or greater Normal or high (1) G2 60-89 Mild decrease (1) G3a 45-59 Mild to moderate decrease G3b 30-44 Moderate to severe decrease G4 15-29 Severe decrease G5 14 or less Kidney failure (1)In the absence of evidence of kidney disease, neither GFR category G1 or G2 fulfill the criteria for CKD. eGFR calculation 2020 CKD-EPI creatinine equation, which does not include race as a factor us Jason Álvarez DO LAB BLOOD ORDERABLES Final Resul t [facility]
[address] [place] [address], * Heparin Anti-Xa (04/10/2025 3:46 AM EDT) Heparin Anti-Xa (UFH) 0.35 0.30 - 0.70 IU/ml 04/10/2025 4:23 AM EDT [facility] Blood Venipuncture / Unknown 04/10/2025 3:46 AM EDT 04/10/2025 3:53 AM EDT [facility] LAB BLOOD ORDERABLES Final R esult Performing Organization Address City/[facility]/ZIP Co de Phone Number [facility]
[address] [place] [address], * Heparin Anti-Xa (04/09/2025 10:05 AM EDT) Heparin Anti-Xa (UFH) 0.36 0.30 - 0.70 IU/ml 04/09/2025 11:12 AM EDT [facility] Blood Venipuncture / Unknown 04/09/2025 10:05 AM EDT 04/09/2025 10:47 AM EDT [facility] LAB BLOOD ORDERABLES Final R esult [facility]
[address] [place] [address], * (ABNORMAL) CBC Auto Differential (04/09/2025 4:18 AM EDT) WBC 11.00(H) 3.40 - 10.80 10*3/mm3 04/09/2025 4:50 AM [facility] RBC 4.70 4.14 - 5.80 10*6/mm3 04/09/2025 4:50 AM EDT [facility] Hemoglobin 13.0 13.0 - 17.7 g/dL 04/09/2025 4:50 AM EDT [facility] Hematocrit 40.4 37.5 - 51.0 % 04/09/2025 4:50 AM EDT [facility] MCV 86.0 79.0 - 97.0 fL 04/09/2025 4:50 AM EDT [facility] MCH 27.7 26.6 - 33.0 pg 04/09/2025 4:[facility] MCHC 32.2 31.5 - 35.7 g/dL 04/09/2025 4:50 [facility] RDW 12.8 12.3 - 15.4 % 04/09/2025 4:50 [facility] RDW-SD 39.9 37.0 - 54.0 fl 04/09/2025 4:50 AM [facility] MPV 10.0 6.0 - 12.0 fL 04/09/2025 4:50 AM [facility] Platelets 211 140 - 450 10*3/mm3 04/09/2025 4:50 AM [facility] Neutrophil % 74.8 42.7 - 76.0 % 04/09/2025 4:50 AM EDT [facility] Lymphocyte % 15.4(L) 19.6 - 45.3 % 04/09/2025 4:50 AM EDT [facility] Monocyte % 8.5 5.0 - 12.0 % 04/09/2025 4:50 AM EDT [facility] Eosinophil % 0.6 0.3 - 6.2 % 04/09/2025 4:50 [facility] Basophil % 0.4 0.0 - 1.5 % 04/09/2025 4:50 AM EDT [facility] Immature Grans % 0.3 0.0 - 0.5 % 04/09/2025 4:50 AM EDT [facility] Neutrophils, Absolute 8.23(H) 1.70 - 7.00 10*3/mm3 04/09/2025 4:50 AM EDT [facility] Lymphocytes, Absolute 1.69 0.70 - 3.10 10*3/mm3 04/09/2025 4:50 AM EDT [facility] Monocytes, Absolute 0.94(H) 0.10 - 0.90 10*3/mm3 04/09/2025 4:50 AM EDT [facility] Eosinophils, Absolute 0.07 0.00 - 0.40 10*3/mm3 04/09/2025 4:50 AM EDT [facility] Basophils, Absolute 0.04 0.00 - 0.20 10*3/mm3 04/09/2025 4:50 AM EDT [facility] Immature Grans, Absolute 0.03 0.00 - 0.05 10*3/mm3 04/09/2025 4:50 AM EDT [facility] nRBC 0.0 0.0 - 0.2 /100 WBC 04/09/2025 4:50 AM EDT [facility] Blood Venipuncture / Unknown 04/09/2025 4:18 AM EDT 04/09/2025 4:31 AM EDT Sushil Dean Jr., MD LAB BLOOD ORDERABLES Fi nal Result [facility]
[address] [place] [address], * Heparin Anti-Xa (04/09/2025 4:18 AM EDT) Heparin Anti-Xa (UFH) 0.41 0.30 - 0.70 IU/ml 04/09/2025 4:53 AM EDT [facility] Blood Venipuncture / Unknown 04/09/2025 4:18 AM EDT 04/09/2025 4:31 AM EDT Una Wheeleroy PharmD LAB BLOOD ORDERABLES Final R esult [facility]
[address] [place] [address], * (ABNORMAL) Basic Metabolic Panel (04/09/2025 4:18 AM EDT) Pathologist [facility] Glucose 147(H) 65 - 99 mg/dL 04/09/2025 5:33 AM EDT [facility] BUN 23.0(H) 6.0 - 20.0 mg/dL 04/09/2025 5:33 AM EDT [facility] Creatinine 1.15 0.76 - 1.27 mg/dL 04/09/2025 5:33 AM EDT [facility] Sodium 135(L) 136 - 145 mmol/L 04/09/2025 5:33 AM EDT [facility] Potassium 4.2 3.5 - 5.2 mmol/L 04/09/2025 5:33 AM EDT [facility] Chloride 100 98 - 107 mmol/L 04/09/2025 5:33 AM EDT [facility] CO2 26.0 22.0 - 29.0 mmol/L 04/09/2025 5:33 AM EDT [facility] Calcium 8.2(L) 8.6 - 10.5 mg/dL 04/09/2025 5:33 AM EDT [facility] BUN/Creatinine Ratio 20.0 7.0 - 25.0 04/09/2025 5:33 AM EDT [facility] Anion Gap 9.0 5.0 - 15.0 mmol/L 04/09/2025 5:33 AM EDT [facility] eGFR 80.5 >60.0 mL/min/1.7 3 04/09/2025 5:33 AM EDT [facility] Blood Venipuncture / Unknown 04/09/2025 4:18 AM EDT 04/09/2025 4:29 AM EDT Narrative [facility] - 04/09/2025 5:33 AM EDT GFR Categories in Chronic Kidney Disease (CKD) GFR Category GFR (mL/min/1.73) Interpretation G1 90 or greater Normal or high (1) G2 60-89 Mild decrease (1) G3a 45-59 Mild to moderate decrease G3b 30-44 Moderate to severe decrease G4 15-29 Severe decrease G5 14 or less Kidney failure (1)In the absence of evidence of kidney disease, neither GFR category G1 or G2 fulfill the criteria for CKD. eGFR calculation 2020 CKD-EPI creatinine equation, which does not include race as a factor Sushil Dean Jr., MD LAB BLOOD ORDERABLES Fi nal Result Performing Organization Address [facility] Co de Phone Number [facility]
[address] [place] [address], * Wound Culture - Swab, Leg, Right (04/08/2025 3:40 PM EDT) Wound Culture No growth at 3 days ALIZA 04/11/2025 10:40 AM EDT [facility] Gram Stain Few (2+) WBCs seen 04/11/2025 10:40 AM EDT [facility] Gram Stain No organisms seen 04/11/2025 10:40 AM EDT [facility] Swab Structure of right lower limb / Unknown 04/08/2025 3:40 PM EDT 04/08/2025 8:05 PM EDT Sushil Dean Jr., MD MICROBIOLOGY - GENERAL ORDERABLES Final Result Performing Organization Address City/[facility]/ZIP Co de Phone Number [facility]
[address] [phone], [facility]
[address] [place] [address], * Anaerobic Culture - Swab, Leg, Right (04/08/2025 3:40 PM EDT) Pathologist [facility] [place] Anaerobic Culture No anaerobes isolated at 5 days ALIZA 04/13/2025 7:24 AM EDT [facility] Swab Structure of right lower limb / Unknown 04/08/2025 3:40 PM EDT 04/08/2025 8:05 PM EDT Sushil Dean Jr., MD MICROBIOLOGY - GENERAL ORDERABLES Final Result Performing Organization Address City/[facility] Co de Phone Number [facility]
[address] [place] [address], [place] [phone] * Scan Slide (04/08/2025 8:41 AM EDT) Pathologist [facility] [place] RBC Morphology Normal Normal 04/08/2025 11:02 AM EDT [facility] WBC Morphology Normal Normal 04/08/2025 11:02 AM EDT [facility] Platelet Estimate Adequate Normal 04/08/2025 11:02 AM EDT [facility] Clumped Platelets Present None Seen 04/08/2025 11:02 AM EDT [facility] Blood Venipuncture / Unknown 04/08/2025 8:41 AM EDT 04/08/2025 9:10 AM EDT Una LundbergD LAB BLOOD ORDERABLES Final R esult Performing Organization Address City/[facility]/ZIP Co de Phone Number [facility]
[address] [place] [address], [place] [phone] * (ABNORMAL) CBC Auto Differential (04/08/2025 8:41 AM EDT) Pathologist [facility] [place] WBC 10.07 3.40 - 10.80 10*3/mm3 04/08/2025 11:02 AM EDT [facility] RBC 5.01 4.14 - 5.80 10*6/mm3 04/08/2025 11:02 AM EDT [facility] Hemoglobin 14.0 13.0 - 17.7 g/dL 04/08/2025 11:02 AM [facility] Hematocrit 42.7 37.5 - 51.0 % 04/08/2025 11:02 AM [facility] MCV 85.2 79.0 - 97.0 fL 04/08/2025 11:02 AM [facility] MCH 27.9 26.6 - 33.0 pg 04/08/2025 11:02 AM [facility] MCHC 32.8 31.5 - 35.7 g/dL 04/08/2025 11:02 AM [facility] RDW 12.6 12.3 - 15.4 % 04/08/2025 11:02 AM [facility] RDW-SD 38.9 37.0 - 54.0 fl 04/08/2025 11:02 AM [facility] MPV 11.0 6.0 - 12.0 fL 04/08/2025 11:02 AM [facility] Platelets 118(L) 140 - 450 10*3/mm3 04/08/2025 11:02 AM [facility] Neutrophil % 85.1(H) 42.7 - 76.0 % 04/08/2025 11:02 AM [facility] Lymphocyte % 9.3(L) 19.6 - 45.3 % 04/08/2025 11:02 AM [facility] Monocyte % 4.6(L) 5.0 - 12.0 % 04/08/2025 11:02 AM [facility] Eosinophil % 0.3 0.3 - 6.2 % 04/08/2025 11:02 AM [facility] Basophil % 0.2 0.0 - 1.5 % 04/08/2025 11:02 AM [facility] Immature Grans % 0.5 0.0 - 0.5 % 04/08/2025 11:02 AM [facility] Neutrophils, Absolute 8.57(H) 1.70 - 7.00 10*3/mm3 04/08/2025 11:02 AM EDT [facility] Lymphocytes, Absolute 0.94 0.70 - 3.10 10*3/mm3 04/08/2025 11:02 AM EDT [facility] Monocytes, Absolute 0.46 0.10 - 0.90 10*3/mm3 04/08/2025 11:02 AM EDT [facility] Eosinophils, Absolute 0.03 0.00 - 0.40 10*3/mm3 04/08/2025 11:02 AM EDT [facility] Basophils, Absolute 0.02 0.00 - 0.20 10*3/mm3 04/08/2025 11:02 AM EDT [facility] Immature Grans, Absolute 0.05 0.00 - 0.05 10*3/mm3 04/08/2025 11:02 AM EDT [facility] nRBC 0.0 0.0 - 0.2 /100 WBC 04/08/2025 11:02 AM EDT [facility] Blood Venipuncture / Unknown 04/08/2025 8:41 AM EDT 04/08/2025 9:10 AM EDT Una Perla PharmD LAB BLOOD ORDERABLES Final R esult [facility]
[address] [place] [address], * (ABNORMAL) Basic Metabolic Panel (04/08/2025 8:41 AM EDT) Glucose 125(H) 65 - 99 mg/dL 04/08/2025 9:51 AM EDT [facility] BUN 13.2 6.0 - 20.0 mg/dL 04/08/2025 9:51 AM EDT [facility] Creatinine 0.69(L) 0.76 - 1.27 mg/dL 04/08/2025 9:51 AM EDT [facility] Sodium 136 136 - 145 mmol/L 04/08/2025 9:51 AM EDT [facility] Potassium 4.6 3.5 - 5.2 mmol/L 04/08/2025 9:51 AM EDT [facility] Chloride 102 98 - 107 mmol/L 04/08/2025 9:51 AM EDT [facility] CO2 23.5 22.0 - 29.0 mmol/L 04/08/2025 9:51 AM EDT [facility] Calcium 8.4(L) 8.6 - 10.5 mg/dL 04/08/2025 9:51 AM EDT [facility] BUN/Creatinine Ratio 19.1 7.0 - 25.0 04/08/2025 9:51 AM EDT [facility] Anion Gap 10.5 5.0 - 15.0 mmol/L 04/08/2025 9:51 AM EDT [facility] eGFR 117.0 >60.0 mL/min/1.7 3 04/08/2025 9:51 AM EDT [facility] Blood Venipuncture / Unknown 04/08/2025 8:41 AM EDT 04/08/2025 9:09 AM EDT [facility] - 04/08/2025 9:51 AM EDT GFR Categories in Chronic Kidney Disease (CKD) GFR Category GFR (mL/min/1.73) Interpretation G1 90 or greater Normal or high (1) G2 60-89 Mild decrease (1) G3a 45-59 Mild to moderate decrease G3b 30-44 Moderate to severe decrease G4 15-29 Severe decrease G5 14 or less Kidney failure (1)In the absence of evidence of kidney disease, neither GFR category G1 or G2 fulfill the criteria for CKD. eGFR calculation 2020 CKD-EPI creatinine equation, which does not include race as a factor us Sushil Dean Jr., MD LAB BLOOD ORDERABLES nal Result [facility]
[address] [place] [address], * Heparin Anti-Xa (04/08/2025 8:41 AM EDT) Heparin Anti-Xa (UFH) 0.33 0.30 - 0.70 IU/ml 04/08/2025 9:40 AM EDT [facility] Blood Venipuncture / Unknown 04/08/2025 8:41 AM EDT 04/08/2025 9:10 AM EDT Sushil Dean Jr., MD LAB BLOOD ORDERABLES Fi nal Result [facility]
[address] [place] [address], * FL C Arm During Surgery (04/07/2025 9:32 PM EDT) Narrative SYSTEMGENERATED, DOCUMENTATION - 04/07/2025 9:38 PM EDT This procedure was auto-finalized with no dictation required. Sushil Dean Jr., MD IMG FLUOROSCOPY ORDERAB LES Final Result * Wound Culture - Swab, Leg, Right (04/07/2025 9:14 PM EDT) Wound Culture No growth at 3 days ALIZA 04/11/2025 10:40 AM EDT [facility] Gram Stain Occasional WBCs seen 04/11/2025 10:40 AM EDT [facility] Gram Stain No organisms seen 04/11/2025 10:40 AM EDT [facility] Swab Structure of right lower limb / Unknown Collection / Unknown 04/07/2025 9:14 PM EDT 04/08/2025 4:36 AM EDT Sushil Dean Jr., MD MICROBIOLOGY - GENERAL ORDERABLES Final Result [facility]
[address] [place] [address], [facility]
[address] [place] [address], * Anaerobic Culture - Swab, Leg, Right (04/07/2025 9:14 PM EDT) Anaerobic Culture No anaerobes isolated at 5 days ALIZA 04/13/2025 7:21 AM EDT [facility] Swab Structure of right lower limb / Unknown Collection / Unknown 04/07/2025 9:14 PM EDT 04/08/2025 4:36 AM EDT Sushil Dean Jr., MD MICROBIOLOGY - GENERAL ORDERABLES Final Result Performing Organization Address City/[facility]/ZIP Co de Phone Number [facility]
[address] [place] [address], * Anaerobic Culture - Tissue, Leg (04/07/2025 9:13 PM EDT) Anaerobic Culture No anaerobes isolated at 5 days ALIZA 04/13/2025 7:21 AM EDT [facility] Tissue Lower limb structure / Unknown Collection / Unknown 04/07/2025 9:13 PM EDT 04/08/2025 4:54 AM EDT Jason Álvarez DO MICROBIOLOGY - GENERAL ORDERABLE S Final Result [facility]
[address] [place] [address], * Tissue / Bone Culture - Tissue, Leg, Right (04/07/2025 9:13 PM EDT) Tissue Culture No growth at 3 days ALIZA 04/11/2025 10:36 AM EDT [facility] Gram Stain Rare (1+) WBCs seen 04/11/2025 10:36 AM EDT [facility] Gram Stain No organisms seen 04/11/2025 10:36 AM EDT [facility] Tissue Structure of right lower limb / Unknown 04/07/2025 9:13 PM EDT 04/08/2025 4:54 AM EDT Sushil Dean Jr., MD MICROBIOLOGY - GENERAL ORDERABLES Final Result Performing Organization Address City/[facility]/ZIP Co de Phone Number [facility]
[address] [place] [address], [place] [phone] [facility]
[address] [place] [address], [place] [phone] * (ABNORMAL) Wound Culture - Swab, Leg, Right (04/07/2025 9:07 PM EDT) Wound Culture Light growth (2+) Staphylococcus aureus, MRSA(A) ALIZA 04/10/2025 10:38 AM EDT [facility] Comment: Methicillin resistant Staphylococcus aureus, Patient may be an isolation risk. Gram Stain Few (2+) WBCs seen 04/10/2025 10:38 AM EDT [facility] Gram Stain No organisms seen 10:38 AM EDT [facility] Swab Structure of right lower limb / Unknown Collection / Unknown 04/07/2025 9:07 PM EDT 04/08/2025 4:36 AM EDT Narrative Organism Antibiotic Method Susceptibility Staphylococcus aureus, MRSA Clindamycin ALIZA 0.25 ug/ml: Susceptible Staphylococcus aureus, MRSA Erythromycin ALIZA >=8 ug/ml: Resistant Staphylococcus aureus, MRSA Oxacillin ALIZA >=4 ug/ml: Resistant Staphylococcus aureus, MRSA Rifampin ALIZA <=0.5 ug/ml: Susceptible Staphylococcus aureus, MRSA Tetracycline ALIZA <=1 ug/ml: Susceptible Staphylococcus aureus, MRSA Trimethoprim + Sulfamethoxazole ALIZA <=10 ug/ml: Susceptible Staphylococcus aureus, MRSA Vancomycin ALIZA 1 ug/ml: Susceptible Sushil Dean Jr., MD MICROBIOLOGY - GENERAL ORDERABLES Final Result [facility]
[address] [place] [address], [facility]
[address] [place] [address], * Anaerobic Culture - Swab, Leg, Right (04/07/2025 9:07 PM EDT) Pathologist [facility] [place] Anaerobic Culture No anaerobes isolated at 5 days ALIZA 04/13/2025 7:21 AM EDT [facility] Swab Structure of right lower limb / Unknown Collection / Unknown 04/07/2025 9:07 PM EDT 04/08/2025 4:36 AM EDT Sushil Dean Jr., MD MICROBIOLOGY - GENERAL ORDERABLES Final Result Performing Organization Address [facility] Co de Phone Number [facility]
[address] [place] [address], * Heparin Anti-Xa (04/07/2025 9:10 AM EDT) [facility] Heparin Anti-Xa (UFH) 0.30 0.30 - 0.70 IU/ml 04/07/2025 10:12 AM EDT [facility] Blood Venipuncture / Unknown 04/07/2025 9:10 AM EDT 04/07/2025 9:38 AM EDT Una LundbergD LAB BLOOD ORDERABLES Final R esult Performing Organization Address City/[facility]/ZIP Co de Phone Number [facility]
[address] [place] [address], * (ABNORMAL) CBC Auto Differential (04/07/2025 9:10 AM EDT) Pathologist [facility] [place] WBC 8.63 3.40 - 10.80 10*3/mm3 04/07/2025 9:50 AM EDT [facility] RBC 5.23 4.14 - 5.80 10*6/mm3 04/07/2025 9:[facility] Hemoglobin 14.7 13.0 - 17.7 g/dL 04/07/2025 9:50 AM [facility] Hematocrit 44.8 37.5 - 51.0 % 04/07/2025 9:50 AM [facility] MCV 85.7 79.0 - 97.0 fL 04/07/2025 9:50 AM EDT [facility] MCH 28.1 26.6 - 33.0 pg 04/07/2025 9:50 AM [facility] MCHC 32.8 31.5 - 35.7 g/dL 04/07/2025 9:50 AM [facility] RDW 12.8 12.3 - 15.4 % 04/07/2025 9:50 AM [facility] RDW-SD 39.9 37.0 - 54.0 fl 04/07/2025 9:50 AM [facility] MPV 10.8 6.0 - 12.0 fL 04/07/2025 9:50 AM [facility] Platelets 149 140 - 450 10*3/mm3 04/07/2025 9:50 AM [facility] Neutrophil % 66.7 42.7 - 76.0 % 04/07/2025 9:50 AM [facility] Lymphocyte % 20.5 19.6 - 45.3 % 04/07/2025 9:50 AM EDT [facility] Monocyte % 9.8 5.0 - 12.0 % 04/07/2025 9:50 AM [facility] Eosinophil % 2.1 0.3 - 6.2 % 04/07/2025 9:50 AM [facility] Basophil % 0.3 0.0 - 1.5 % 04/07/2025 9:50 AM [facility] Immature Grans % 0.6(H) 0.0 - 0.5 % 04/07/2025 9:50 AM EDT [facility] Neutrophils, Absolute 5.75 1.70 - 7.00 10*3/mm3 04/07/2025 9:50 AM EDT [facility] Lymphocytes, Absolute 1.77 0.70 - 3.10 10*3/mm3 04/07/2025 9:50 AM EDT [facility] Monocytes, Absolute 0.85 0.10 - 0.90 10*3/mm3 04/07/2025 9:50 AM EDT [facility] Eosinophils, Absolute 0.18 0.00 - 0.40 10*3/mm3 04/07/2025 9:50 AM EDT [facility] Basophils, Absolute 0.03 0.00 - 0.20 10*3/mm3 04/07/2025 9:50 AM EDT [facility] Immature Grans, Absolute 0.05 0.00 - 0.05 10*3/mm3 04/07/2025 9:50 AM EDT [facility] nRBC 0.0 0.0 - 0.2 /100 WBC 04/07/2025 9:50 AM EDT [facility] Blood Venipuncture / Unknown 04/07/2025 9:10 AM EDT 04/07/2025 9:38 AM EDT us Jason Álvarez DO LAB BLOOD ORDERABLES Final Resul t [facility]
[address] [place] [address], * (ABNORMAL) Basic Metabolic Panel (04/07/2025 9:10 AM EDT) Glucose 112(H) 65 - 99 mg/dL 04/07/2025 10:19 AM EDT [facility] BUN 13.1 6.0 - 20.0 mg/dL 04/07/2025 10:19 AM EDT [facility] Creatinine 0.77 0.76 - 1.27 mg/dL 04/07/2025 10:19 AM EDT [facility] Sodium 139 136 - 145 mmol/L 04/07/2025 10:19 AM EDT [facility] Potassium 4.2 3.5 - 5.2 mmol/L 04/07/2025 10:19 AM EDT [facility] Comment:Specimen hemolyzed. Result may be falsely elevated. Chloride 105 98 - 107 mmol/L 04/07/2025 10:19 AM EDT [facility] CO2 24.8 22.0 - 29.0 mmol/L 04/07/2025 10:19 AM EDT [facility] Calcium 8.6 8.6 - 10.5 mg/dL 04/07/2025 10:19 AM T [facility] BUN/Creatinine Ratio 17.0 7.0 - 25.0 04/07/2025 10:19 AM EDT [facility] Anion Gap 9.2 5.0 - 15.0 mmol/L 04/07/2025 10:19 AM T [facility] eGFR 113.2 >60.0 mL/min/1.7 3 04/07/2025 10:19 AM T [facility] Blood Venipuncture / Unknown 04/07/2025 9:10 AM EDT 04/07/2025 9:38 AM EDT Narrative [facility] - 04/07/2025 10:19 AM EDT GFR Categories in Chronic Kidney Disease (CKD) GFR Category GFR (mL/min/1.73) Interpretation G1 90 or greater Normal or high (1) G2 60-89 Mild decrease (1) G3a 45-59 Mild to moderate decrease G3b 30-44 Moderate to severe decrease G4 15-29 Severe decrease G5 14 or less Kidney failure (1)In the absence of evidence of kidney disease, neither GFR category G1 or G2 fulfill the criteria for CKD. eGFR calculation 2020 CKD-EPI creatinine equation, which does not include race as a factor us Jason Álvarez DO LAB BLOOD ORDERABLES Final Resul t [facility]
[address] [place] [address], * MRI Tibia Fibula Right With & Without Contrast (04/07/2025 9:00 AM EDT) Anatomical Region Laterality Modality Lower Extremities, Lower Leg Mag netic Resonance 04/07/2025 9:38 AM EDT Impressions 04/07/2025 9:58 AM EDT Impression: 1.Status post below-knee amputation with soft tissue edema, skin thickening, and enhancement of the lower leg, as before, which may represent cellulitis. 2.Small irregular fluid signal foci in the subcutaneous tissues at the anterior-lateral aspect of the lower leg, extending inferiorly from the level of the inferior patellar tendon to the level of the distal tibia, most notably near the distal tibia. These could represent small abscesses versus infectious phlegmon. Ultrasound could be performed to assess for collection for drainage or aspiration. 3.No definite findings of osteomyelitis at this time. Electronically Signed: Hugh Buenrostro 04/07/2025 9:58 AM EDT Workstation ID: [id number] Narrative 04/07/2025 9:58 AM EDT MRI TIBIA FIBULA RIGHT W WO CONTRAST Date of Exam: 04/07/2025 8:15 AM EDT Indication: evaluate interval change, osteomyelitis vs fluid collection. Comparison: 04/04/2025 Technique: Routine multiplanar/multisequence images of the right tibia and fibula were obtained before and after the uneventful intravenous administration of Vueway. Findings: Status post below-knee amputation, as before. There is soft tissue edema with skin thickening and postcontrast enhancement, primarily along the anterior aspect of the remaining lower leg, as before. In the subcutaneous tissues at the anterior-lateral aspect of the lower leg, extending inferiorly from the level of the inferior patellar tendon to the level of the distal tibia (axial images 10-35), there are irregular small T2 fluid signal foci with peripheral enhancement. The small irregular focal area of hypoenhancement adjacent to the distal tibia seen previously on series 19 image 10 appears similar on series 12 image 6. There is a small amount of focal T2 fluid signal intensity in this location. No definite new marrow signal abnormality to indicate osteomyelitis. No visualized knee effusion. There is diffuse muscle atrophy and postsurgical changes in the soft tissues, as before. Procedure Note Chitra, Hugh Shelton MD - 04/07/2025 MRI TIBIA FIBULA RIGHT W WO CONTRAST Date of Exam: 04/07/2025 8:15 AM EDT Indication: evaluate interval change, osteomyelitis vs fluid collection. Comparison: 04/04/2025 Technique: Routine multiplanar/multisequence images of the right tibiaand fibula were obtained before and after the uneventful intravenousadministration of Vueway. Findings: Status post below-knee amputation, as before. There is soft tissue edemawith skin thickening and postcontrast enhancement, primarily along theanterior aspect of the remaining lower leg, as before. In the subcutaneous tissues at the anterior-lateral aspect of the lowerleg, extending inferiorly from the level of the inferior patellar tendonto the level of the distal tibia (axial images 10-35), there are irregularsmall T2 fluid signal foci with peripheral enhancement. The small irregular focal area of hypoenhancementadjacent to the distal tibia seen previously on series 19 image 10 appearssimilar on series 12 image 6. There is a small amount of focal T2 fluidsignal intensity in this location. No definite new marrow signal abnormality to indicate osteomyelitis. Novisualized knee effusion. There is diffuse muscle atrophy and postsurgicalchanges in the soft tissues, as before. IMPRESSION: Impression: 1.Status post below-knee amputation with soft tissue edema, skinthickening, and enhancement of the lower leg, as before, which mayrepresent cellulitis. 2.Small irregular fluid signal foci in the subcutaneous tissues at theanterior-lateral aspect of the lower leg, extending inferiorly from thelevel of the inferior patellar tendon to the level of the distal tibia,most notably near the distal tibia. These could represent small abscesses versus infectious phlegmon.Ultrasound could be performed to assess for collection for drainage oraspiration. 3.No definite findings of osteomyelitis at this time. Electronically Signed: Hugh Buenrostro 04/07/2025 9:58 AM EDT Workstation ID: [id number] us Sushil Dean Jr., MD [facility] MRI ORDERABLES Mary Beth l Result * Heparin Anti-Xa (04/07/2025 1:42 AM EDT) Heparin Anti-Xa (UFH) 0.38 0.30 - 0.70 IU/ml 04/07/2025 2:14 AM EDT [facility] Blood Venipuncture / Unknown 04/07/2025 1:42 AM EDT 04/07/2025 1:54 AM EDT Chelsie Navarretesapna [facility] LAB BLOOD ORDERABLES Final R esult Performing Organization Address City/[facility]/ZIP Co de Phone Number [facility]
[address] [place] [address], * Heparin Anti-Xa (04/06/2025 7:16 PM EDT) Pathologist [facility] [place] Heparin Anti-Xa (UFH) 0.33 0.30 - 0.70 IU/ml 04/06/2025 7:50 PM EDT [facility] Blood Venipuncture / Unknown 04/06/2025 7:16 PM EDT 04/06/2025 7:35 PM EDT Cherri Beatty [facility] LAB BLOOD ORDERABLES Final Res ult Performing Organization Address City/[facility] Co de Phone Number [facility]
[address] [place] [address], * Potassium (04/06/2025 7:16 PM EDT) Pathologist [facility] [place] Potassium 4.0 3.5 - 5.2 mmol/L 04/06/2025 7:53 PM EDT [facility] Blood Venipuncture / Unknown 04/06/2025 7:16 PM EDT 04/06/2025 7:35 PM EDT Jason Álvarez DO LAB BLOOD ORDERABLES Final Resul t Performing Organization Address City/[facility]/ZIP Co de Phone Number [facility]
[address] [place] [address], * (ABNORMAL) Heparin Anti-Xa (04/06/2025 12:36 PM EDT) Heparin Anti-Xa (UFH) 0.24(L) 0.30 - 0.70 IU/ml 04/06/2025 1:23 PM EDT [facility] Blood Venipuncture / Unknown 04/06/2025 12:36 PM EDT 04/06/2025 1:07 PM EDT Una LundbergD LAB BLOOD ORDERABLES Final R esult [facility]
[address] [place] [address], * (ABNORMAL) Heparin Anti-Xa (04/06/2025 3:42 AM EDT) [facility] Heparin Anti-Xa (UFH) 0.25(L) 0.30 - 0.70 IU/ml 04/06/2025 5:30 AM EDT [facility] Blood Venipuncture / Unknown 04/06/2025 3:42 AM EDT 04/06/2025 4:59 AM EDT Chelsie Turpin [facility] LAB BLOOD ORDERABLES Final R esult [facility]
[address] [place] [address], * (ABNORMAL) Basic Metabolic Panel (04/06/2025 3:42 AM EDT) [facility] Glucose 94 65 - 99 mg/dL 04/06/2025 5:59 AM EDT [facility] BUN 12.8 6.0 - 20.0 mg/dL 04/06/2025 5:59 AM EDT [facility] Creatinine 0.80 0.76 - 1.27 mg/dL 04/06/2025 5:59 AM EDT [facility] Sodium 138 136 - 145 mmol/L 04/06/2025 5:59 AM EDT [facility] Potassium 3.6 3.5 - 5.2 mmol/L 04/06/2025 5:59 AM EDT [facility] Chloride 103 98 - 107 mmol/L 04/06/2025 5:59 AM EDT [facility] CO2 24.2 22.0 - 29.0 mmol/L 04/06/2025 5:59 AM EDT [facility] Calcium 8.0(L) 8.6 - 10.5 mg/dL 04/06/2025 5:59 AM EDT [facility] BUN/Creatinine Ratio 16.0 7.0 - 25.0 04/06/2025 5:59 AM EDT [facility] Anion Gap 10.8 5.0 - 15.0 mmol/L 04/06/2025 5:59 AM EDT [facility] eGFR 111.9 >60.0 mL/min/1.7 3 04/06/2025 5:59 AM EDT [facility] Blood Venipuncture / Unknown 04/06/2025 3:42 AM EDT 04/06/2025 5:20 AM EDT Narrative [facility] - 04/06/2025 5:59 AM EDT GFR Categories in Chronic Kidney Disease (CKD) GFR Category GFR (mL/min/1.73) Interpretation G1 90 or greater Normal or high (1) G2 60-89 Mild decrease (1) G3a 45-59 Mild to moderate decrease G3b 30-44 Moderate to severe decrease G4 15-29 Severe decrease G5 14 or less Kidney failure (1)In the absence of evidence of kidney disease, neither GFR category G1 or G2 fulfill the criteria for CKD. eGFR calculation 2020 CKD-EPI creatinine equation, which does not include race as a factor us Jason Álvarez DO LAB BLOOD ORDERABLES Final Resul t [facility]
[address] [place] [address], * (ABNORMAL) CBC Auto Differential (04/06/2025 3:41 AM EDT) WBC 10.86(H) 3.40 - 10.80 10*3/mm3 04/06/2025 5:04 AM EDT [facility] RBC 5.08 4.14 - 5.80 10*6/mm3 04/06/2025 5:04 AM EDT [facility] Hemoglobin 13.9 13.0 - 17.7 g/dL 04/06/2025 5:04 AM EDT [facility] Hematocrit 43.7 37.5 - 51.0 % 04/06/2025 5:04 AM EDT [facility] MCV 86.0 79.0 - 97.0 fL 04/06/2025 5:04 AM EDT [facility] MCH 27.4 26.6 - 33.0 pg 04/06/2025 5:04 AM EDT [facility] MCHC 31.8 31.5 - 35.7 g/dL 04/06/2025 5:04 AM EDT [facility] RDW 12.8 12.3 - 15.4 % 04/06/2025 5:04 AM EDT [facility] RDW-SD 40.0 37.0 - 54.0 fl 04/06/2025 5:04 AM EDT [facility] MPV 11.7 6.0 - 12.0 fL 04/06/2025 5:04 AM EDT [facility] Platelets 115(L) 140 - 450 10*3/mm3 04/06/2025 5:04 AM EDT [facility] Neutrophil % 65.3 42.7 - 76.0 % 04/06/2025 5:04 AM EDT [facility] Lymphocyte % 20.5 19.6 - 45.3 % 04/06/2025 5:04 AM EDT [facility] Monocyte % 11.8 5.0 - 12.0 % 04/06/2025 5:04 AM EDT [facility] Eosinophil % 1.8 0.3 - 6.2 % 04/06/2025 5:04 AM EDT [facility] Basophil % 0.3 0.0 - 1.5 % 04/06/2025 5:04 AM EDT [facility] Immature Grans % 0.3 0.0 - 0.5 % 04/06/2025 5:04 AM EDT [facility] Neutrophils, Absolute 7.09(H) 1.70 - 7.00 10*3/mm3 04/06/2025 5:04 AM EDT [facility] Lymphocytes, Absolute 2.23 0.70 - 3.10 10*3/mm3 04/06/2025 5:04 AM EDT [facility] Monocytes, Absolute 1.28(H) 0.10 - 0.90 10*3/mm3 04/06/2025 5:04 AM EDT [facility] Eosinophils, Absolute 0.20 0.00 - 0.40 10*3/mm3 04/06/2025 5:04 AM EDT [facility] Basophils, Absolute 0.03 0.00 - 0.20 10*3/mm3 04/06/2025 5:04 AM EDT [facility] Immature Grans, Absolute 0.03 0.00 - 0.05 10*3/mm3 04/06/2025 5:04 AM EDT [facility] nRBC 0.0 0.0 - 0.2 /100 WBC 04/06/2025 5:04 AM EDT [facility] Blood Venipuncture / Unknown 04/06/2025 3:41 AM EDT 04/06/2025 4:58 AM EDT us Jason Álvarez DO LAB BLOOD ORDERABLES Final Resul t [facility]
[address] [place] [address], * Heparin Anti-Xa (04/05/2025 8:43 PM EDT) Heparin Anti-Xa (UFH) 0.38 0.30 - 0.70 IU/ml 04/05/2025 9:09 PM EDT [facility] Blood Venipuncture / Unknown 04/05/2025 8:43 PM EDT 04/05/2025 8:55 PM EDT Cherri Beatty [facility] LAB BLOOD ORDERABLES Final Res ult Performing Organization Address [facility] Co de Phone Number [facility]
[address] [place] [address], * CK (04/05/2025 12:15 PM EDT) Creatine Kinase 140 20 - 200 U/L 04/05/2025 1:31 PM EDT [facility] Blood Venipuncture / Unknown 04/05/2025 12:15 PM EDT 04/05/2025 1:03 PM EDT Carlton Mead MD LAB BLOOD ORDERABLES Final R esult Performing Organization Address [facility] Co de Phone Number [facility]
[address] [place] [address], [place] [phone] * (ABNORMAL) Heparin Anti-Xa (04/05/2025 12:15 PM EDT) Heparin Anti-Xa (UFH) 0.17(L) 0.30 - 0.70 IU/ml 04/05/2025 1:21 PM EDT [facility] Blood Venipuncture / Unknown 04/05/2025 12:15 PM EDT 04/05/2025 1:04 PM EDT Una LundbergD LAB BLOOD ORDERABLES Final R esult Performing Organization Address City/[facility]/ZIP Co de Phone Number [facility]
[address] [place] [address], * (ABNORMAL) aPTT (04/05/2025 3:54 AM EDT) [facility] PTT 35.3(L) 60.0 - 90.0 seconds 04/05/2025 4:31 AM EDT [facility] Blood Venipuncture / Unknown 04/05/2025 3:54 AM EDT 04/05/2025 4:15 AM EDT Narrative [facility] - 04/05/2025 4:31 AM EDT PTT = The equivalent PTT values for the therapeutic range of heparin levels at 0.3 to 0.5 U/ml are 60 to 70 seconds. Una Perla Pirate[employer]DD LAB BLOOD ORDERABLES Final R esult Performing Organization Address [facility] Co de Phone Number [facility]
[address] [place] [address], * Heparin Anti-Xa (04/05/2025 3:54 AM EDT) [facility] Heparin Anti-Xa (UFH) 0.30 0.30 - 0.70 IU/ml 04/05/2025 4:32 AM EDT [facility] Blood Venipuncture / Unknown 04/05/2025 3:54 AM EDT 04/05/2025 4:15 AM EDT [employer] LAB BLOOD ORDERABLES Final R esult Performing Organization Address City/[facility] Co de Phone Number [facility]
[address] [place] [address], * (ABNORMAL) CBC Auto Differential (04/05/2025 3:54 AM EDT) [facility] WBC 11.18(H) 3.40 - 10.80 10*3/mm3 04/05/2025 4:20 AM EDT [facility] RBC 5.00 4.14 - 5.80 10*6/mm3 04/05/2025 4:20 AM EDT [facility] Hemoglobin 13.9 13.0 - 17.7 g/dL 04/05/2025 4:20 AM EDT [facility] Hematocrit 42.4 37.5 - 51.0 % 04/05/2025 4:20 AM EDT [facility] MCV 84.8 79.0 - 97.0 fL 04/05/2025 4:20 AM EDT [facility] MCH 27.8 26.6 - 33.0 pg 04/05[facility]2025 [facility] MCHC 32.8 31.5 - 35.7 g/dL 04/05/2025 4:20 AM [facility] RDW 12.9 12.3 - 15.4 % 04/05/2025 4:20 AM [facility] RDW-SD 39.7 37.0 - 54.0 fl 04/05/2025 4:20 AM [facility] MPV 10.2 6.0 - 12.0 fL 04/05/2025 4:20 AM [facility] Platelets 160 140 - 450 10*3/mm3 04/05/2025 4:20 AM [facility] Neutrophil % 73.5 42.7 - 76.0 % 04/05/2025 4:20 [facility] Lymphocyte % 14.0(L) 19.6 - 45.3 % 04/05/2025 4:20 AM EDT [facility] Monocyte % 11.0 5.0 - 12.0 % 04/05/2025 4:20 [facility] Eosinophil % 0.8 0.3 - 6.2 % 04/05/2025 4:20 AM [facility] Basophil % 0.3 0.0 - 1.5 % 04/05/2025 4:20 AM EDT [facility] Immature Grans % 0.4 0.0 - 0.5 % 04/05/2025 4:20 AM EDT [facility] Neutrophils, Absolute 8.23(H) 1.70 - 7.00 10*3/mm3 04/05/2025 4:20 AM EDT [facility] Lymphocytes, Absolute 1.56 0.70 - 3.10 10*3/mm3 04/05/2025 4:20 AM EDT [facility] Monocytes, Absolute 1.23(H) 0.10 - 0.90 10*3/mm3 04/05/2025 4:20 AM EDT [facility] Eosinophils, Absolute 0.09 0.00 - 0.40 10*3/mm3 04/05/2025 4:20 AM EDT [facility] Basophils, Absolute 0.03 0.00 - 0.20 10*3/mm3 04/05/2025 4:20 AM EDT [facility] Immature Grans, Absolute 0.04 0.00 - 0.05 10*3/mm3 04/05/2025 4:20 AM EDT [facility] nRBC 0.0 0.0 - 0.2 /100 WBC 04/05/2025 4:20 AM EDT [facility] Blood Venipuncture / Unknown 04/05/2025 3:54 AM EDT 04/05/2025 4:16 AM EDT Una Perla PharmD LAB BLOOD ORDERABLES Final R esult [facility]
[address] [place] [address], * (ABNORMAL) Basic Metabolic Panel (04/05/2025 3:54 AM EDT) [facility] Signature Glucose 152(H) 65 - 99 mg/dL 04/05/2025 4:40 AM EDT [facility] BUN 17.3 6.0 - 20.0 mg/dL 04/05/2025 4:40 AM T [facility] Creatinine 0.92 0.76 - 1.27 mg/dL 04/05/2025 4:40 AM EDT [facility] Sodium 136 136 - 145 mmol/L 04/05/2025 4:40 AM EDT [facility] Potassium 3.9 3.5 - 5.2 mmol/L 04/05/2025 4:40 AM EDT [facility] Chloride 103 98 - 107 mmol/L 04/05/2025 4:40 AM EDT [facility] CO2 24.0 22.0 - 29.0 mmol/L 04/05/2025 4:40 AM T [facility] Calcium 7.8(L) 8.6 - 10.5 mg/dL 04/05/2025 4:40 AM [facility] BUN/Creatinine Ratio 18.8 7.0 - 25.0 04/05/2025 4:40 AM T [facility] Anion Gap 9.0 5.0 - 15.0 mmol/L 04/05/2025 4:40 AM [facility] eGFR 105.2 >60.0 mL/min/1.7 3 04/05/2025 4:40 AM [facility] Blood Venipuncture / Unknown 04/05/2025 3:54 AM EDT 04/05/2025 4:15 AM EDT [facility] - 04/05/2025 4:40 AM EDT GFR Categories in Chronic Kidney Disease (CKD) GFR Category GFR (mL/min/1.73) Interpretation G1 90 or greater Normal or high (1) G2 60-89 Mild decrease (1) G3a 45-59 Mild to moderate decrease G3b 30-44 Moderate to severe decrease G4 15-29 Severe decrease G5 14 or less Kidney failure (1)In the absence of evidence of kidney disease, neither GFR category G1 or G2 fulfill the criteria for CKD. eGFR calculation 2020 CKD-EPI creatinine equation, which does not include race as a factor us Leonora Shepherd MD LAB BLOOD ORDERABLES Final Re sult Performing Organization Address [facility] Co de Phone Number [facility]
[address] [place] [address], * (ABNORMAL) aPTT (04/05/2025 12:18 AM EDT) PTT 33.6(L) 60.0 - 90.0 seconds 04/05/2025 12:53 AM EDT [facility] Blood Venipuncture / Unknown 04/05/2025 12:18 AM EDT 04/05/2025 12:37 AM EDT Narrative [facility] - 04/05/2025 12:53 AM EDT PTT = The equivalent PTT values for the therapeutic range of heparin levels at 0.3 to 0.5 U/ml are 60 to 70 seconds. Una Perla PharmD LAB BLOOD ORDERABLES Final R esult Performing Organization Address [facility] Co de Phone Number [facility]
[address] [place] [address], [place] [phone] * (ABNORMAL) Protime-INR (04/05/2025 12:18 AM EDT) Protime 15.9(H) 12.2 - 15.3 Seconds 04/05/2025 12:53 AM EDT [facility] INR 1.19(H) 0.89 - 1.12 04/05/2025 12:53 AM EDT [facility] Blood Venipuncture / Unknown 04/05/2025 12:18 AM EDT 04/05/2025 12:37 AM EDT Una Perla PharmD LAB BLOOD ORDERABLES Final R esult Performing Organization Address City/[facility] Co de Phone Number [facility]
[address] [place] [address], [place] [phone] * Heparin Anti-Xa (04/05/2025 12:18 AM EDT) Heparin Anti-Xa (UFH) 0.39 0.30 - 0.70 IU/ml 04/05/2025 12:54 AM EDT [facility] Blood Venipuncture / Unknown 04/05/2025 12:18 AM EDT 04/05/2025 12:37 AM EDT Una Perla PharmD LAB BLOOD ORDERABLES Final R esult [facility]
[address] [place] [address], * MRI Tibia Fibula Right With & Without Contrast (04/04/2025 5:54 PM EDT) Anatomical Region Laterality Modality Lower Extremities, Lower Leg Mag netic Resonance 04/04/2025 10:5 7 PM EDT Impressions 04/04/2025 11:00 PM EDT Impression: Postsurgical changes related to below-knee amputation with soft tissue swelling and skin thickening seen along the resection margin extending along the anterior aspect of the tibia consistent with cellulitis. There is a small patchy area of hypoattenuation present which may represent a small area of phlegmonous change. No drainable collection identified. No definite osseous edema identified to suggest osteomyelitis. No knee joint effusion. Electronically Signed: Leigh Jones MD 04/04/2025 11:00 PM EDT Workstation ID: [id number] Narrative 04/04/2025 11:00 PM EDT MRI TIBIA FIBULA RIGHT W WO CONTRAST Date of Exam: 04/04/2025 5:26 PM EDT Indication: right BKA amputation with pain, swelling, infx? fluid collection. Comparison: None available. Technique: Routine multiplanar/multisequence images of the right tibia and fibula were obtained before and after the uneventful intravenous administration of Vueway. Findings: Postsurgical changes are seen related to below-knee amputation. Soft tissue swelling is seen along the resection margin with diffuse skin thickening. This extends along the anterior aspect of the tibia. No focal collection identified. Mild enhancement is seen corresponding to this region diffusely. No drainable collection identified. There is a small patchy area of hypoattenuation present which may represent a small area of phlegmonous change (series 19 image 10) measuring approximately 1.6 cm which appears linear (series 15 image 37). The tibial stump demonstrates no significant edema or enhancement. No definite periosteal changes identified. Fibular resection margin appears unremarkable. There is no knee joint effusion. Musculature appears unremarkable with no evidence of focal atrophy. Procedure Note Leigh Jones MD - 04/04/2025 MRI TIBIA FIBULA RIGHT W WO CONTRAST Date of Exam: 04/04/2025 5:26 PM EDT Indication: right BKA amputation with pain, swelling, infx? fluidcollection. Comparison: None available. Technique: Routine multiplanar/multisequence images of the right tibiaand fibula were obtained before and after the uneventful intravenousadministration of Vueway. Findings: Postsurgical changes are seen related to below-knee amputation. Softtissue swelling is seen along the resection margin with diffuse skinthickening. This extends along the anterior aspect of the tibia. No focalcollection identified. Mild enhancement is seen corresponding to this region diffusely. No drainable collectionidentified. There is a small patchy area of hypoattenuation present whichmay represent a small area of phlegmonous change (series 19 image 10)measuring approximately 1.6 cm which appears linear (series 15 image 37). The tibial stump demonstrates nosignificant edema or enhancement. No definite periosteal changesidentified. Fibular resection margin appears unremarkable. There is noknee joint effusion. Musculature appears unremarkable with no evidence of focal atrophy. IMPRESSION: Impression: Postsurgical changes related to below-knee amputation with soft tissueswelling and skin thickening seen along the resection margin extendingalong the anterior aspect of the tibia consistent with cellulitis. Thereis a small patchy area of hypoattenuation present which may represent a small area of phlegmonouschange. No drainable collection identified. No definite osseous edemaidentified to suggest osteomyelitis. No knee joint effusion. Electronically Signed: Leigh Jones MD 04/04/2025 11:00 PM EDT Workstation ID: [id number] us Leonora Shepherd MD IMG MRI ORDERABLES Final Resu lt * POC Creatinine (04/04/2025 2:49 PM EDT) [facility] Creatinine 1.10 0.60 - 1.30 mg/dL 04/07/2025 7:14 PM EDT [facility] Comment:Serial Number: [id number] [id number] Venous Blood 04/04/2025 2:49 PM EDT 04/07/2025 7:14 PM EDT Jason Álvarez DO POINT OF CARE TEST ORDERABLES Fi nal Result [facility]
[address] [place] [address], * (ABNORMAL) CBC Auto Differential (04/04/2025 2:47 PM EDT) [facility] WBC 12.72(H) 3.40 - 10.80 10*3/mm3 04/04/2025 2:56 PM EDT [facility] RBC 5.64 4.14 - 5.80 10*6/mm3 04/04/2025 2:56 PM EDT [facility] Hemoglobin 15.3 13.0 - 17.7 g/dL 04/04/2025 2:56 PM EDT [facility] Hematocrit 47.9 37.5 - 51.0 % 04/04/2025 2:56 PM EDT [facility] MCV 84.9 79.0 - 97.0 fL 04/04/2025 2:56 PM EDT [facility] MCH 27.1 26.6 - 33.0 pg 04/04/2025 2:56 PM EDT [facility] MCHC 31.9 31.5 - 35.7 g/dL 04/04/2025 2:56 PM EDT [facility] RDW 13.1 12.3 - 15.4 % 04/04/2025 2:56 [facility] RDW-SD 40.3 37.0 - 54.0 fl 04/04/2025 2:56 PM EDT [facility] MPV 9.4 6.0 - 12.0 fL 04/04/2025 2:56 PM EDT [facility] Platelets 232 140 - 450 10*3/mm3 04/04/2025 2:56 PM EDT [facility] Neutrophil % 74.9 42.7 - 76.0 % 04/04/2025 2:56 PM EDT [facility] Lymphocyte % 13.1(L) 19.6 - 45.3 % 04/04/2025 2:56 PM [facility] Monocyte % 11.2 5.0 - 12.0 % 04/04/2025 2:56 PM [facility] Eosinophil % 0.4 0.3 - 6.2 % 04/04/2025 2:56 PM EDT [facility] Basophil % 0.2 0.0 - 1.5 % 04/04/2025 2:56 PM [facility] Immature Grans % 0.2 0.0 - 0.5 % 04/04/2025 2:56 PM [facility] Neutrophils, Absolute 9.52(H) 1.70 - 7.00 10*3/mm3 04/04/2025 2:56 PM [facility] Lymphocytes, Absolute 1.66 0.70 - 3.10 10*3/mm3 04/04/2025 2:56 PM EDT [facility] Monocytes, Absolute 1.43(H) 0.10 - 0.90 10*3/mm3 04/04/2025 2:56 PM EDT [facility] Eosinophils, Absolute 0.05 0.00 - 0.40 10*3/mm3 04/04/2025 2:56 PM [facility] Basophils, Absolute 0.03 0.00 - 0.20 10*3/mm3 04/04/2025 2:56 PM EDT [facility] Immature Grans, Absolute 0.03 0.00 - 0.05 10*3/mm3 04/04/2025 2:56 PM EDT [facility] nRBC 0.0 0.0 - 0.2 /100 WBC 04/04/2025 2:56 PM EDT [facility] Blood Venipuncture / Unknown 04/04/2025 2:47 PM EDT 04/04/2025 2:52 PM EDT Mario Ortiz Gh[employer] LAB BLOOD ORDERABLES Fin al Result Performing Organization Address City/[facility]/ZIP Co de Phone Number [facility]
[address] [place] [address], * (ABNORMAL) C-reactive Protein (04/04/2025 2:47 PM EDT) C-Reactive Protein 8.57(H) 0.00 - 0.50 mg/dL 04/04/2025 3:26 PM EDT [facility] Blood Venipuncture / Unknown 04/04/2025 2:47 PM EDT 04/04/2025 2:52 PM EDT Mario Ortiz GhanshyamOB[employer] LAB BLOOD ORDERABLES Fin al Result Performing Organization Address [facility] de Phone Number [facility]
[address] [place] [address], * (ABNORMAL) Sedimentation Rate (04/04/2025 2:47 PM EDT) Sed Rate 51(H) 0 - 15 mm/hr 04/04/2025 3:06 PM EDT [facility] Blood Venipuncture / Unknown 04/04/2025 2:47 PM EDT 04/04/2025 2:52 PM EDT Mario Ortiz Leroywhite county medical centerOB[facility] Corporation LAB BLOOD ORDERABLES Fin al Result Performing Organization Address City/[facility]/ZIP Co de Phone Number [facility]
[address] [place] [address], * Comprehensive Metabolic Panel (04/04/2025 2:47 PM EDT) [facility] Glucose 90 65 - 99 mg/dL 04/04/2025 3:26 PM EDT [facility] BUN 18.3 6.0 - 20.0 mg/dL 04/04/2025 3:26 PM EDT [facility] Creatinine 0.94 0.76 - 1.27 mg/dL 04/04/2025 3:26 PM EDT [facility] Sodium 136 136 - 145 mmol/L 04/04/2025 3:26 PM EDT [facility] Potassium 3.8 3.5 - 5.2 mmol/L 04/04/2025 3:26 PM EDT [facility] Chloride 100 98 - 107 mmol/L 04/04/2025 3:26 PM EDT [facility] CO2 25.3 22.0 - 29.0 mmol/L 04/04/2025 3:26 PM EDT [facility] Calcium 8.6 8.6 - 10.5 mg/dL 04/04/2025 3:26 PM EDT [facility] Total Protein 7.3 6.0 - 8.5 g/dL 04/04/2025 3:26 PM EDT [facility] Albumin 4.1 3.5 - 5.2 g/dL 04/04/2025 3:26 PM EDT [facility] ALT (SGPT) 26 1 - 41 U/L 04/04/2025 3:26 PM EDT [facility] AST (SGOT) 25 1 - 40 U/L 04/04/2025 3:26 PM EDT [facility] Alkaline Phosphatase 106 39 - 117 U/L 04/04/2025 3:26 PM EDT [facility] Total Bilirubin 1.0 0.0 - 1.2 mg/dL 04/04/2025 3:26 PM EDT [facility] Globulin 3.2 gm/dL 04/04/2025 3:26 PM EDT [facility] Comment:Calculated Result A/G Ratio 1.3 g/dL 04/04/2025 3:26 PM EDT [facility] BUN/Creatinine Ratio 19.5 7.0 - 25.0 04/04/2025 3:26 PM EDT [facility] Anion Gap 10.7 5.0 - 15.0 mmol/L 04/04/2025 3:26 PM EDT [facility] eGFR 102.5 >60.0 mL/min/1.7 3 04/04/2025 3:26 PM EDT [facility] Blood Venipuncture / Unknown 04/04/2025 2:47 PM EDT 04/04/2025 2:52 PM EDT Narrative [facility] - 04/04/2025 3:26 PM EDT GFR Categories in Chronic Kidney Disease (CKD) GFR Category GFR (mL/min/1.73) Interpretation G1 90 or greater Normal or high (1) G2 60-89 Mild decrease (1) G3a 45-59 Mild to moderate decrease G3b 30-44 Moderate to severe decrease G4 15-29 Severe decrease G5 14 or less Kidney failure (1)In the absence of evidence of kidney disease, neither GFR category G1 or G2 fulfill the criteria for CKD. eGFR calculation 2020 CKD-EPI creatinine equation, which does not include race as a factor Mario Crowley DO LAB BLOOD ORDERABLES Fin al Result [facility]
[address] [place] [address], documented in this encounter Visit Diagnoses Diagnosis Right BKA infection- Primary Cellulitis of right lower extremity Below-knee amputation of right lower extremity, initial encounter Right BKA infection documented in this encounter Admitting Diagnoses Diagnosis Right BKA infection documented in this encounter Administered Medications Inactive Administered Medications - up to 3 most recent administrations Medication Order MAR Action Action Date Dose Rate Site !Heparin drip on hold for procedure today, please contact pharmacy after procedure for restart 2 Times Daily, First dose on Mon04/08/25 at 1245, Until Discontinued, Consult for: heparin gtt hold Given 04/08/2025 11:46 AM EDT acetaminophen (TYLENOL) 160 MG/5ML oral solution 500 mg 500 mg, Oral, Every 6 Hours PRN, Mild Pain, Headache, Fever, Starting on Mon04/04/25 at 2006, If given for fever, use fever parameter: fever greater than 100.4 F Based on patient request - if ordered for moderate or severe pain, provider allows for administration of a medication prescribed for a lower pain scale. Do not exceed 4 grams of acetaminophen in a 24 hr period. Max dose of 2gm for AST/ALT greater than 120 units/L. If given for pain, use the following pain scale: Mild Pain = Pain Score of 1-3, CPOT 1-2 Moderate Pain = Pain Score of 4-6, CPOT 3-4 Severe Pain = Pain Score of 7-10, CPOT 5-8 Given 04/06/2025 12:36 AM EDT 500 mg acetaminophen (TYLENOL) suppository 325 mg 325 mg, Rectal, Every 6 Hours PRN, Mild Pain, Headache, Fever, Starting on Mon04/04/25 at 2006, If given for fever, use fever parameter: fever greater than 100.4 F Based on patient request - if ordered for moderate or severe pain, provider allows for administration of a medication prescribed for a lower pain scale. Do not exceed 4 grams of acetaminophen in a 24 hr period. Max dose of 2gm for AST/ALT greater than 120 units/L. If given for pain, use the following pain scale: Mild Pain = Pain Score of 1-3, CPOT 1-2 Moderate Pain = Pain Score of 4-6, CPOT 3-4 Severe Pain = Pain Score of 7-10, CPOT 5-8 acetaminophen (TYLENOL) tablet 500 mg 500 mg, Oral, Every 6 Hours PRN, Mild Pain, Headache, Fever, Starting on Mon04/04/25 at 2006, If given for fever, use fever parameter: fever greater than 100.4 F Based on patient request - if ordered for moderate or severe pain, provider allows for administration of a medication prescribed for a lower pain scale. Do not exceed 4 grams of acetaminophen in a 24 hr period. Max dose of 2gm for AST/ALT greater than 120 units/L. If given for pain, use the following pain scale: Mild Pain = Pain Score of 1-3, CPOT 1-2 Moderate Pain = Pain Score of 4-6, CPOT 3-4 Severe Pain = Pain Score of 7-10, CPOT 5-8 Given 04/10/2025 3:08 PM EDT 500 mg Given 04/10/2025 9:06 AM EDT 500 mg Given 04/09/2025 8:33 PM EDT 500 mg apixaban (ELIQUIS) tablet 5 mg 5 mg, Oral, Every 12 Hours Scheduled, First dose (after last modification) on Erica 04/10/25 at 1045, Tablet may be crushed and suspended in 60 mL of water or D5W and immediately delivered via NG tube., Indications: Other - full anticoagulationIndications:Other - full anticoagulation Given 04/11/2025 10:01 AM EDT 5 mg Given 04/10/2025 8:31 PM EDT 5 mg Given 04/10/2025 11:11 AM EDT 5 mg atorvastatin (LIPITOR) tablet 40 mg 40 mg, Oral, Nightly, First dose on Mon04/04/25 at 2100, Avoid grapefruit juice. Given 04/10/2025 8:31 PM EDT 40 mg Given 04/09/2025 8:27 PM EDT 40 mg Given 04/08/2025 8:07 PM EDT 40 mg bisacodyl (DULCOLAX) EC tablet 5 mg 5 mg, Oral, Daily PRN, Constipation, Use if polyethylene glycol is ineffective, Starting on Mon04/04/25 at 2007, Use if no bowel movement after 12 hours. Swallow whole. Do not crush, split, or chew tablet. bisacodyl (DULCOLAX) suppository 10 mg 10 mg, Rectal, Daily PRN, Constipation, Use if bisacodyl oral is ineffective, Starting on Mon04/04/25 at 2007, Use if no bowel movement after 12 hours. Hold for diarrhea budesonide-formoterol (SYMBICORT) 160-4.5 MCG/ACT inhaler 2 puff 2 puff, Inhalation, 2 Times Daily - RT, First dose on Mon04/06/25 at 1345, Include Respiratory Treatment Education (SP) Shake well. Rinse mouth after use, do not swallow water. Send aerosols to pharmacy in ziplock bag for proper disposal. Given 04/11/2025 10:37 AM EDT 2 puffs Given 04/10/2025 8:07 PM EDT 2 puffs Given 04/10/2025 8:37 AM EDT 2 puffs Calcium Replacement - Follow Nurse / BPA Driven Protocol Open Order & Select [facility] Electrolyte Replacement Protocol Algorithm to View Details cefTRIAXone (ROCEPHIN) 2,000 mg in sodium chloride 0.9 % 100 mL MBP 2,000 mg, Intravenous, at 200 mL/hr, Administer over 30 Minutes, Once, On Mon04/04/25 at 1959, For 1 dose, LR should be paused and flushing of the line with NS is recommended prior to and after completion of ceftriaxone infusion due to incompatibility. Do not co-adminster with calcium-containing solutions. Caution: Look alike/sound alike drug alert, Indications: Skin and Soft Tissue InfectionIndications:Skin and Soft Tissue Infection New Bag 04/04/2025 11:42 PM EDT 2,000 mg 200 mL/h r cefTRIAXone (ROCEPHIN) 2,000 mg in sodium chloride 0.9 % 100 mL MBP 2,000 mg, Intravenous, at 200 mL/hr, Administer over 30 Minutes, Every 24 Hours, First dose on 04/05/25 at 2000, For 11 doses, LR should be paused and flushing of the line with NS is recommended prior to and after completion of ceftriaxone infusion due to incompatibility. Do not co-adminster with calcium-containing solutions. Caution: Look alike/sound alike drug alert, Indications: Bone and/or Joint Infection, Skin and Soft Tissue InfectionIndications:Bone and/or Joint Infection,Skin and Soft Tissue Infection New Bag 04/09/2025 8:27 PM EDT 2,000 mg 200 mL/hr New Bag 04/08/2025 8:07 PM EDT 2,000 mg 200 mL/hr New Bag 04/07/2025 11:29 PM EDT 2,000 mg 200 mL/hr clotrimazole-betamethasone (LOTRISONE) 1-0.05 % cream 1 Application 1 Application, Topical, Every 12 Hours Scheduled, First dose on 04/05/25 at 1245, For 7 days, Apply to posterior thigh to rash. Given 04/09/2025 8:27 PM EDT 1 Application Given 04/09/2025 11:48 AM EDT 1 Application Given 04/08/2025 8:08 PM EDT 1 Application DAPTOmycin (CUBICIN) 800 mg in sodium chloride 0.9 % 50 mL IVPB 800 mg (rounded from 790.4 mg = 8 mg/kg 98.8 kg Adjusted weight), Intravenous, at 100 mL/hr, Administer over 30 Minutes, Every 24 Hours, First dose on Mon04/05/25 at 1300, For 1 day, Caution: Look alike/sound alike drug alert. Refrigerate. Do not shake., Reason for Therapy: Other, Indication for Therapy: Cellulitis, Indications: Skin and Soft Tissue InfectionIndications:Skin and Soft Tissue Infection New Bag 04/05/2025 1:57 PM EDT 800 mg 100 mL/hr DAPTOmycin (CUBICIN) 800 mg in sodium chloride 0.9 % 50 mL IVPB 800 mg (rounded from 790.4 mg = 8 mg/kg 98.8 kg Adjusted weight), Intravenous, at 100 mL/hr, Administer over 30 Minutes, Every 24 Hours, First dose (after last reorder) on Mon04/06/25 at 1000, For 10 days, Caution: Look alike/sound alike drug alert. Refrigerate. Do not shake., Reason for Therapy: Other, Indication for Therapy: cellulitis, Indications: Skin and Soft Tissue InfectionIndications:Skin and Soft Tissue Infection New Bag 04/11/2025 10:02 AM EDT 800 mg 100 mL/hr New Bag 04/10/2025 9:07 AM EDT 800 mg 100 mL/hr New Bag 04/09/2025 9:07 AM EDT 800 mg 100 mL/hr diphenhydrAMINE (BENADRYL) capsule 25 mg 25 mg, Oral, Once, On Mon04/08/25 at 2045, For 1 dose, Caution: Look alike/sound alike drug alert. This med may be ordered in other forms and routes. Before giving verify the last time the drug was given by any route/form. Given 04/08/2025 8:07 PM EDT 25 mg fentaNYL citrate (PF) (SUBLIMAZE) 50 mcg/mL injection - ADS Override Pull Starting on Mon04/07/25 at 2151, For 1 dose, Created by cabinet override If given for pain, use the following pain scale: Mild Pain = Pain Score of 1-3, CPOT 1-2 Moderate Pain = Pain Score of 4-6, CPOT 3-4 Severe Pain = Pain Score of 7-10, CPOT 5-8 fentaNYL citrate (PF) (SUBLIMAZE) injection 50 mcg 50 mcg, Intravenous, Every 5 Minutes PRN, Severe Pain, Breakthrough pain, Starting on Mon04/07/25 at 2156, For 4 doses, PACU only. Maximum cumulative total dose of fentanyl is 200 mcg (60 MME) If given for pain, use the following pain scale: Mild Pain = Pain Score of 1-3, CPOT 1-2 Moderate Pain = Pain Score of 4-6, CPOT 3-4 Severe Pain = Pain Score of 7-10, CPOT 5-8 Given 04/08/2025 5:01 PM EDT 50 mcg Given 04/07/2025 9:56 PM EDT 50 mcg ferrous sulfate tablet 325 mg 325 mg, Oral, 2 Times Daily, First dose on Mon04/04/25 at 2100, Swallow whole. Do not crush, split, or chew. Take with food if GI upset occurs. Given 04/11/2025 10:01 AM EDT 325 mg Given 04/10/2025 8:31 PM EDT 325 mg Given 04/10/2025 9:06 AM EDT 325 mg furosemide (LASIX) tablet 20 mg 20 mg, Oral, Daily, First dose on Mon04/05/25 at 0900 Given 04/11/2025 10:01 AM EDT 20 mg Given 04/10/2025 9:06 AM EDT 20 mg Given 04/09/2025 9:07 AM EDT 20 mg Gadopiclenol (VUEWAY) injection 10 mL 10 mL, Intravenous, Once in Imaging, On Mon04/07/25 at 0930, For 1 dose, Administer undiluted as intravenous bolus at 2 ml/sec. Flush with NS after injection. Given 04/07/2025 8:44 AM EDT 10 mL Gadopiclenol (VUEWAY) injection 7.5 mL 7.5 mL, Intravenous, Once in Imaging, On Mon04/04/25 at 1811, For 1 dose, Administer undiluted as intravenous bolus at 2 ml/sec. Flush with NS after injection. Given 04/04/2025 5:55 PM EDT 13.5 mL heparin (porcine) injection 2,000 Units 2,000 Units, Intravenous, Once, On 04/05/25 at 1600, For 1 dose, Indications: Other - full anticoagulationIndications:Othe r - full anticoagulation Given 04/05/2025 3:33 PM EDT 2,000 Units heparin 39819 units/250 mL (100 units/mL) in 0.45 % NaCl infusion 18 Units/kg/hr 134 kg (24.12 mL/hr, rounded to 24.1 mL/hr), Intravenous, Titrated, Starting on 04/05/25 at 0045, Pharmacy dosing - VTE (PE/DVT) - Boluses (No initial bolus), Indications: DVT/PE (active thrombosis)Indications:DVT/PE (active thrombosis) New Bag 04/10/2025 3:13 AM EDT 18 Units/kg/hr 24.1 mL/hr New Bag 04/09/2025 4:33 PM EDT 18 Units/kg/hr 24.1 mL/h r New Bag 04/09/2025 6:14 AM EDT 18 Units/kg/hr 24.1 mL/h r hydroCHLOROthiazide tablet 12.5 mg 12.5 mg, Oral, Daily, First dose on 04/05/25 at 0900, Caution: Look alike/sound alike drug alert Given 04/11/2025 10:01 AM EDT 12.5 mg Given 04/10/2025 9:06 AM EDT 12.5 mg Given 04/09/2025 9:06 AM EDT 12.5 mg HYDROmorphone (DILAUDID) 1 MG/ML injection - ADS Override Pull Starting on 04/07/25 at 2212, For 1 dose, Created by cabinet override (ERIC) Caution: Look alike/sound alike drug alert If given for pain, use the following pain scale: Mild Pain = Pain Score of 1-3, CPOT 1-2 Moderate Pain = Pain Score of 4-6, CPOT 3-4 Severe Pain = Pain Score of 7-10, CPOT 5-8 HYDROmorphone (DILAUDID) injection 0.5 mg 0.5 mg, Intravenous, Every 2 Hours PRN, Severe Pain, Starting on Mon04/04/25 at 2359, For 6 days 12 hours, Based on patient request - if ordered for moderate or severe pain, provider allows for administration of a medication prescribed for a lower pain scale. If given for pain, use the following pain scale: Mild Pain = Pain Score of 1-3, CPOT 1-2 Moderate Pain = Pain Score of 4-6, CPOT 3-4 Severe Pain = Pain Score of 7-10, CPOT 5-8 Given 04/11/2025 10:03 AM EDT 0.5 mg Given 04/10/2025 9:24 PM EDT 0.5 mg Given 04/10/2025 2:14 PM EDT 0.5 mg HYDROmorphone (DILAUDID) injection 1 mg 1 mg, Intravenous, Every 15 Minutes PRN, Severe Pain, Starting on Mon04/07/25 at 2156, For 2 doses, Max of 2 mg (40 MME) PACU only. (ERIC) Caution: Look alike/sound alike drug alert If given for pain, use the following pain scale: Mild Pain = Pain Score of 1-3, CPOT 1-2 Moderate Pain = Pain Score of 4-6, CPOT 3-4 Severe Pain = Pain Score of 7-10, CPOT 5-8 Given 04/08/2025 4:48 PM EDT 1 mg Given 04/07/2025 10:12 PM EDT 1 mg HYDROmorphone (DILAUDID) injection 1 mg 1 mg, Intravenous, Every 15 Minutes PRN, Severe Pain, Starting on Mon04/08/25 at 1708, For 2 doses, Max of 2 mg (40 MME) PACU only. (ERIC) Caution: Look alike/sound alike drug alert If given for pain, use the following pain scale: Mild Pain = Pain Score of 1-3, CPOT 1-2 Moderate Pain = Pain Score of 4-6, CPOT 3-4 Severe Pain = Pain Score of 7-10, CPOT 5-8 Given 04/08/2025 5:39 PM EDT 1 mg Given 04/08/2025 5:09 PM EDT 1 mg Magnesium Standard Dose Replacement - Follow Nurse / BPA Driven Protocol Open Order & Select [facility] Electrolyte Replacement Protocol Algorithm to View Details Morphine sulfate (PF) injection 4 mg 4 mg, Intravenous, Every 30 Minutes PRN, Severe Pain, Up to 3 doses. Please notify physician in patient needs 3rd dose. Thank you, Starting on Mon04/04/25 at 1623, For 3 doses, (ERIC) Caution: Look alike/sound alike drug alert If given for pain, use the following pain scale: Mild Pain = Pain Score of 1-3, CPOT 1-2 Moderate Pain = Pain Score of 4-6, CPOT 3-4 Severe Pain = Pain Score of 7-10, CPOT 5-8 Given 04/04/2025 8:15 PM EDT 4 mg Given 04/04/2025 5:50 PM EDT 4 mg naloxone (NARCAN) injection 0.4 mg 0.4 mg, Intravenous, Every 5 Minutes PRN, Respiratory Depression, Starting on Mon04/07/25 at 2156, If respiratory rate is less than 8 breaths/minute or patient is difficult to arouse stop any narcotics and contact physician. Administer slow IV push. Repeat as ordered until patient's respiratory rate is greater than 12 breaths/minute. naloxone (NARCAN) injection 0.4 mg 0.4 mg, Intravenous, Every 5 Minutes PRN, Respiratory Depression, Starting on Mon04/08/25 at 1708, If respiratory rate is less than 8 breaths/minute or patient is difficult to arouse stop any narcotics and contact physician. Administer slow IV push. Repeat as ordered until patient's respiratory rate is greater than 12 breaths/minute. nitroglycerin (NITROSTAT) SL tablet 0.4 mg 0.4 mg, Sublingual, Every 5 Minutes PRN, Chest Pain, Starting on Mon04/04/25 at 1948, If Pain Unrelieved After 3 Doses Notify MD May administer up to 3 doses per episode. Hold if SBP less than 100. ondansetron (ZOFRAN) injection 4 mg 4 mg, Intravenous, Once, On Mon04/04/25 at 1639, For 1 dose, If multiple N/V medications ordered, use in the following order: Ondansetron, Prochlorperazine, Promethazine. Use PO unless patient refuses or patient unable to swallow. Given 04/04/2025 5:50 PM EDT 4 mg ondansetron ODT (ZOFRAN-ODT) disintegrating tablet 4 mg 4 mg, Translingual, Every 6 Hours PRN, Nausea, Vomiting, Starting on Mon04/06/25 at 0949, If multiple N/V medications ordered, use in the following order: Ondansetron, Prochlorperazine, Promethazine. Use PO unless patient refuses or patient unable to swallow. Place on tongue and allow to dissolve. Given 04/06/2025 10:02 AM EDT 4 mg oxybutynin XL (DITROPAN-XL) 24 hr tablet 10 mg 10 mg, Oral, Nightly, First dose on Mon04/04/25 at 2330, Do not crush or chew the capsules or tablets. The drug may not work as designed if the capsule or tablet is crushed or chewed. Swallow whole. Given 04/10/2025 8:31 PM EDT 10 mg Given 04/09/2025 8:27 PM EDT 10 mg Given 04/08/2025 8:07 PM EDT 10 mg oxyCODONE (ROXICODONE) immediate release tablet 10 mg 10 mg, Oral, Once, On Mon04/08/25 at 2100, For 1 dose, Based on patient request - if ordered for moderate or severe pain, provider allows for administration of a medication prescribed for a lower pain scale. If given for pain, use the following pain scale: Mild Pain = Pain Score of 1-3, CPOT 1-2 Moderate Pain = Pain Score of 4-6, CPOT 3-4 Severe Pain = Pain Score of 7-10, CPOT 5-8 Given 04/08/2025 8:37 PM EDT 10 mg oxyCODONE-acetaminophen (PERCOCET) 5-325 MG per tablet 1 tablet 1 tablet, Oral, Every 6 Hours PRN, Moderate Pain, Starting on Mon04/09/25 at 2119, For 1 day, Based on patient request - if ordered for moderate or severe pain, provider allows for administration of a medication prescribed for a lower pain scale. [ERIC] Do not exceed 4 grams of acetaminophen in a 24 hr period. Max dose of 2gm for AST/ALT greater than 120 units/L If given for pain, use the following pain scale: Mild Pain = Pain Score of 1-3, CPOT 1-2 Moderate Pain = Pain Score of 4-6, CPOT 3-4 Severe Pain = Pain Score of 7-10, CPOT 5-8 Given 04/10/2025 8:31 PM EDT 1 tablet Given 04/10/2025 3:08 PM EDT 1 tablet Given 04/10/2025 9:06 AM EDT 1 tablet Phosphorus Replacement - Follow Nurse / BPA Driven Protocol Open Order & Select [facility] Electrolyte Replacement Protocol Algorithm to View Details polyethylene glycol (MIRALAX) packet 17 g 17 g, Oral, Daily PRN, Constipation, Use if senna-docusate is ineffective, Starting on Mon04/04/25 at 2007, Use if no bowel movement after 12 hours. Mix in 6-8 ounces of water. Use 4-8 ounces of water, tea, or juice for each 17 gram dose. potassium chloride (KLOR-CON M20) CR tablet 40 mEq 40 mEq, Oral, Every 4 Hours, First dose on Mon04/06/25 at 1100, For 2 doses, Do not crush or chew the capsules or tablets. The drug may not work as designed if the capsule or tablet is crushed or chewed. Swallow whole. Take with food. Given 04/06/2025 2:20 PM EDT 40 mEq Given 04/06/2025 11:00 AM EDT 40 mEq Potassium Replacement - Follow Nurse / BPA Driven Protocol Open Order & Select [facility] Electrolyte Replacement Protocol Algorithm to View Details saccharomyces boulardii (FLORASTOR) capsule 250 mg 250 mg, Oral, 2 Times Daily, First dose on Mon04/04/25 at 2102 Given 04/11/2025 10:01 AM EDT 250 mg Given 04/10/2025 8:31 PM EDT 250 mg Given 04/10/2025 9:06 AM EDT 250 mg sennosides-docusate (PERICOLACE) 8.6-50 MG per tablet 2 tablet 2 tablet, Oral, 2 Times Daily PRN, Constipation, Starting on Mon04/04/25 at 2007, Start bowel management regimen if patient has not had a bowel movement after 12 hours. sertraline (ZOLOFT) tablet 100 mg 100 mg, Oral, Nightly, First dose on Mon04/04/25 at 2330 Given 04/10/2025 8:31 PM EDT 100 mg Given 04/09/2025 8:27 PM EDT 100 mg Given 04/08/2025 8:07 PM EDT 100 mg sodium chloride 0.9 % flush 10 mL 10 mL, Intravenous, As Needed, Line Care, Starting on Mon04/04/25 at 1431 sodium chloride 0.9 % flush 10 mL 10 mL, Intravenous, Every 12 Hours Scheduled, First dose on Mon04/04/25 at 2100 Given 04/11/2025 10:04 AM EDT 10 mL Given 04/10/2025 9:07 AM EDT 10 mL Given 04/09/2025 8:27 PM EDT 10 mL sodium chloride 0.9 % flush 10 mL 10 mL, Intravenous, As Needed, Line Care, Starting on Mon04/04/25 at 2006 sodium chloride 0.9 % flush 10 mL 10 mL, Intravenous, Every 12 Hours Scheduled, First dose on Mon04/09/25 at 1400 Given 04/11/2025 10:03 AM EDT 10 mL Given 04/10/2025 9:08 AM EDT 10 mL Given 04/09/2025 2:39 PM EDT 10 mL sodium chloride 0.9 % flush 10 mL 10 mL, Intravenous, As Needed, Line Care, After Medication Administration, Starting on Mon04/09/25 at 1310 sodium chloride 0.9 % flush 20 mL 20 mL, Intravenous, As Needed, Line Care, After Blood Draws or Blood Product Administration, Starting on Mon04/09/25 at 1310 sodium chloride 0.9 % infusion 40 mL 40 mL, Intravenous, at 100 mL/hr, As Needed, Line Care, Starting on Mon04/04/25 at 2006, Following administration of an IV intermittent medication, flush line with 40mL NS at 100mL/hr. sodium chloride 0.9 % infusion 40 mL 40 mL, Intravenous, at 100 mL/hr, As Needed, Line Care, Starting on Mon04/09/25 at 1310, Following administration of an IV intermittent medication, flush line with 40mL NS at 100mL/hr. tamsulosin (FLOMAX) 24 hr capsule 0.4 mg 0.4 mg, Oral, Nightly, First dose on Mon04/04/25 at 2330, Do not crush or chew the capsules or tablets. The drug may not work as designed if the capsule or tablet is crushed or chewed. Swallow whole. If patient unable to swallow whole, contact pharmacy for alternative. Given 04/10/2025 8:31 PM EDT 0.4 mg Given 04/09/2025 8:27 PM EDT 0.4 mg Given 04/08/2025 8:07 PM EDT 0.4 mg valsartan (DIOVAN) tablet 40 mg 40 mg, Oral, Every 24 Hours Scheduled, First dose on 04/05/25 at 0900, Hold for SBP less than 100, DBP less than 60, or heart rate less than 50. If a dose is held, please contact the provider., On hold since Mon04/08/2025 at 1352 until manually unheld Given 04/08/2025 8:00 AM EDT 40 mg Given 04/07/2025 9:51 AM EDT 40 mg Given 04/06/2025 8:59 AM EDT 40 mg vancomycin 2750 mg/500 mL 0.9% NS IVPB ([facility]) 2,750 mg (rounded from 2,680 mg = 20 mg/kg 134 kg), Intravenous, Administer over 165 Minutes, Once, On Mon04/04/25 at 1959, For 1 dose, Indications: Skin and Soft Tissue InfectionIndications:Skin and Soft Tissue Infection New Bag 04/04/2025 8:22 PM EDT 2,750 mg vancomycin IVPB 1500 mg in 0.9% NaCl (Premix) 500 mL 1,500 mg, Intravenous, at 333.3 mL/hr, Administer over 90 Minutes, Every 12 Hours, First dose on 04/05/25 at 0800, For 7 days, Indications: Bone and/or Joint Infection, Skin and Soft Tissue InfectionIndications:Bone and/or Joint Infection,Skin and Soft Tissue Infection New Bag 04/05/2025 9:16 AM EDT 1,500 mg 333.3 mL/ hr documented in this encounter Active and Recently Administered Medications Times are shown in EDT. Scheduled Medication Order 04/09/2025 04/10/2025 04/11/2025 apixaban (ELIQUIS) tablet 5 mg 5 mg, Oral, Every 12 Hours Scheduled, First dose (after last modification) on Erica 04/10/25 at 1045, Tablet may be crushed and suspended in 60 mL of water or D5W and immediately delivered via NG tube., Indications: Other - full anticoagulation 1111 (Given - Provider: Shirley Hart RN)2030 (Given - Provider: Alberto Dillon RN) 100 (Given - Provider: Marguerite Wakefield, LU) atorvastatin (LIPITOR) tablet 40 mg 40 mg, Oral, Nightly, First dose on Mon04/04/25 at 2100, Avoid grapefruit juice. 2026 (Given - Provider: Alberto Dillon, RN) 2030 (Given - Provider: Alberto Dillon, RN) budesonide-formoterol (SYMBICORT) 160-4.5 MCG/ACT inhaler 2 puff 2 puff, Inhalation, 2 Times Daily - RT, First dose on Mon04/06/25 at 1345, Include Respiratory Treatment Education (SP) Shake well. Rinse mouth after use, do not swallow water. Send aerosols to pharmacy in ziplock bag for proper disposal. 0831 (Given - Provider: Amber Salazar, QUALITY CONTROL ASSISTANT)194 (Given - Provider: Anahy Marcelino, QUALITY CONTROL ASSISTANT)2129 (Canceled Entry - Provider: Anahy Marcelino RRT - Comment: previously given) 0837 (Given - Provider: Amber Salazar RRT)2006 (Given - Provider: Loree Reese, KELL)2129 (Canceled Entry - Provider: Loree Reese RRT) 1037 (Given - Provider: Leonora Chen, KELL) cefTRIAXone (ROCEPHIN) 2,000 mg in sodium chloride 0.9 % 100 mL MBP (CANCELED) 2,000 mg, Intravenous, at 200 mL/hr, Administer over 30 Minutes, Every 24 Hours, First dose on 04/05/25 at 2000, For 11 doses, LR should be paused and flushing of the line with NS is recommended prior to and after completion of ceftriaxone infusion due to incompatibility. Do not co-adminster with calcium-containing solutions. Caution: Look alike/sound alike drug alert, Indications: Bone and/or Joint Infection, Skin and Soft Tissue Infection 2026 (New Bag - Provider: Alberto Dillon RN) clotrimazole-betamethason e (LOTRISONE) 1-0.05 % cream 1 Application (CANCELED) 1 Application, Topical, Every 12 Hours Scheduled, First dose on 04/05/25 at 1245, For 7 days, Apply to posterior thigh to rash. 1148 (Given - Provider: Shirley Hart RN)2026 (Given - Provider: Alberto Dillon, RN) DAPTOmycin (CUBICIN) 800 mg in sodium chloride 0.9 % 50 mL IVPB 800 mg (rounded from 790.4 mg = 8 mg/kg 98.8 kg Adjusted weight), Intravenous, at 100 mL/hr, Administer over 30 Minutes, Every 24 Hours, First dose (after last reorder) on Mon04/06/25 at 1000, For 10 days, Caution: Look alike/sound alike drug alert. Refrigerate. Do not shake., Reason for Therapy: Other, Indication for Therapy: cellulitis, Indications: Skin and Soft Tissue Infection 09 (New Bag - Provider: Shirley Hart RN) 09 (New Bag - Provider: Shirley Hart RN) 1002 (New Bag - Provider: Marguerite Wakefield, RN) ethyl alcohol 62 % 2 each 2 each (2 Swab), Nasal, Once, On Mon04/07/25 at 1646, For 1 dose, Administer 15-60 minutes prior to surgery following these steps: Clean nostrils with a tissue, apply a 62% ethyl alcohol swab to the right nostril gently rotating the swab for 30 seconds, repeat the process with the 2nd swab in the left nostril. ferrous sulfate tablet 325 mg 325 mg, Oral, 2 Times Daily, First dose on Mon04/04/25 at 2100, Swallow whole. Do not crush, split, or chew. Take with food if GI upset occurs. 0907 (Given - Provider: Shirley Hart RN)2026 (Given - Provider: Alberto Dillon, RN) 09 (Given - Provider: Shirley Hart, LU)2030 (Given - Provider: Alberto Dillon, RN) 100 (Given - Provider: Marguerite Wakefield, RN) furosemide (LASIX) tablet 20 mg 20 mg, Oral, Daily, First dose on Mon04/05/25 at 0900 0907 (Given - Provider: Shirley Hart RN) 09 (Given - Provider: Shirley Hart RN) 100 (Given - Provider: Marguerite Wakefield, RN) hydroCHLOROthiazide tablet 12.5 mg 12.5 mg, Oral, Daily, First dose on Mon04/05/25 at 0900, Caution: Look alike/sound alike drug alert 09 (Given - Provider: Shirley Hart, LU) 09 (Given - Provider: Shirley Hart, LU) 100 (Given - Provider: Marguerite Wakefield, RN) ketorolac (TORADOL) injection 15 mg 15 mg, Intravenous, Once, On Mon04/09/25 at 2215, For 1 dose, Based on patient request - if ordered for moderate or severe pain, provider allows for administration of a medication prescribed for a lower pain scale. (B[facility]) If given for pain, use the following pain scale: Mild Pain = Pain Score of 1-3, CPOT 1-2 Moderate Pain = Pain Score of 4-6, CPOT 3-4 Severe Pain = Pain Score of 7-10, CPOT 5-8 2215 (Due) oxybutynin XL (DITROPAN-XL) 24 hr tablet 10 mg 10 mg, Oral, Nightly, First dose on Mon04/04/25 at 2330, Do not crush or chew the capsules or tablets. The drug may not work as designed if the capsule or tablet is crushed or chewed. Swallow whole. 2026 (Given - Provider: Alberto Dillon RN) 2030 (Given - Provider: Alberto Dillon RN) saccharomyces boulardii (FLORASTOR) capsule 250 mg 250 mg, Oral, 2 Times Daily, First dose on Mon04/04/25 at 2102 0907 (Given - Provider: Shirley Hart, LU)2026 (Given - Provider: Alberto Dillon, LU) 09 (Given - Provider: Shirley Hart RN)2030 (Given - Provider: Alberto Dillon, LU) 100 (Given - Provider: Marguerite Wakefield, RN) sertraline (ZOLOFT) tablet 100 mg 100 mg, Oral, Nightly, First dose on Mon04/04/25 at 2330 2026 (Given - Provider: Alberto Dillon, LU) 2030 (Given - Provider: Alberto Dillon, RN) sodium chloride 0.9 % flush 10 mL 10 mL, Intravenous, Every 12 Hours Scheduled, First dose on Mon04/04/25 at 2100 1007 (Given - Provider: Shirley Hart RN)2026 (Given - Provider: Alberto Dillon RN) 0907 (Given - Provider: Shirley Hart, RN)2100 (Canceled Entry - Provider: Alberto Dillon RN) 1004 (Given - Provider: Marguerite Wakefield, RN) sodium chloride 0.9 % flush 10 mL 10 mL, Intravenous, Every 12 Hours Scheduled, First dose on Mon04/09/25 at 1400 1439 (Given - Provider: Shirley Hart, RN)2100 (Canceled Entry - Provider: Alberto Dillon RN) 0908 (Given - Provider: Shirley Hart RN)2100 (Canceled Entry - Provider: Alberto Dillon RN) 1003 (Given - Provider: Marguerite Wakefield, RN) tamsulosin (FLOMAX) 24 hr capsule 0.4 mg 0.4 mg, Oral, Nightly, First dose on Mon04/04/25 at 2330, Do not crush or chew the capsules or tablets. The drug may not work as designed if the capsule or tablet is crushed or chewed. Swallow whole. If patient unable to swallow whole, contact pharmacy for alternative. 2026 (Given - Provider: Alberto Dillon RN) 2030 (Given - Provider: Alberto Dillon RN) valsartan (DIOVAN) tablet 40 mg 40 mg, Oral, Every 24 Hours Scheduled, First dose on 04/05/25 at 0900, Hold for SBP less than 100, DBP less than 60, or heart rate less than 50. If a dose is held, please contact the provider., On hold since Mon04/08/2025 at 1352 until manually unheld 0900 (Dose Auto Held - Provider: Jason Álvarez DO) 0900 (Dose Auto Held - Provider: Jason Álvarez DO) 0900 (Dose Auto Held - Provider: Jason Álvarez DO)1559 (Unheld by provider - Provider: Automatic Discharge Provider) Continuous Medication Order 04/09/2025 04/10/2025 04/11/2025 heparin 21244 units/250 mL (100 units/mL) in 0.45 % NaCl infusion (CANCELED) 18 Units/kg/hr 134 kg (24.12 mL/hr, rounded to 24.1 mL/hr), Intravenous, Titrated, Starting on 04/05/25 at 0045, Pharmacy dosing - VTE (PE/DVT) - Boluses (No initial bolus), Indications: DVT/PE (active thrombosis) 0614 (New Bag - Provider: Bob Rosenberg RN)0712 (Handoff - Provider: Bob Rosenberg RN)1633 (New Bag - Provider: Shirley Hart RN) 0313 (New Bag - Provider: Alberto Dillon RN)1112 (Stopped - Provider: Shirley Hart RN - Comment: [Order ends at this time. Document the following action when infusion is complete: Stopped]) PRN Medication Order 04/09/2025 04/10/2025 04/11/2025 acetaminophen (TYLENOL) 160 MG/5ML oral solution 500 mg(Linked Group 1) 500 mg, Oral, Every 6 Hours PRN, Mild Pain, Headache, Fever, Starting on Mon04/04/25 at 2006, If given for fever, use fever parameter: fever greater than 100.4 F Based on patient request - if ordered for moderate or severe pain, provider allows for administration of a medication prescribed for a lower pain scale. Do not exceed 4 grams of acetaminophen in a 24 hr period. Max dose of 2gm for AST/ALT greater than 120 units/L. If given for pain, use the following pain scale: Mild Pain = Pain Score of 1-3, CPOT 1-2 Moderate Pain = Pain Score of 4-6, CPOT 3-4 Severe Pain = Pain Score of 7-10, CPOT 5-8 2032 (Not Given: See Alt - Provider: Alberto Dillon RN) 0906 (Not Given: See Alt - Provider: Shirley Hart RN)1508 (Not Given: See Alt - Provider: Shirley Hart RN) acetaminophen (TYLENOL) suppository 325 mg(Linked Group 1) 325 mg, Rectal, Every 6 Hours PRN, Mild Pain, Headache, Fever, Starting on Mon04/04/25 at 2006, If given for fever, use fever parameter: fever greater than 100.4 F Based on patient request - if ordered for moderate or severe pain, provider allows for administration of a medication prescribed for a lower pain scale. Do not exceed 4 grams of acetaminophen in a 24 hr period. Max dose of 2gm for AST/ALT greater than 120 units/L. If given for pain, use the following pain scale: Mild Pain = Pain Score of 1-3, CPOT 1-2 Moderate Pain = Pain Score of 4-6, CPOT 3-4 Severe Pain = Pain Score of 7-10, CPOT 5-8 2032 (Not Given: See Alt - Provider: Alberto Dillon RN) 0906 (Not Given: See Alt - Provider: Shirley Hart RN)1508 (Not Given: See Alt - Provider: Shirley Hart, LU) acetaminophen (TYLENOL) tablet 500 mg(Linked Group 1) 500 mg, Oral, Every 6 Hours PRN, Mild Pain, Headache, Fever, Starting on Mon04/04/25 at 2006, If given for fever, use fever parameter: fever greater than 100.4 F Based on patient request - if ordered for moderate or severe pain, provider allows for administration of a medication prescribed for a lower pain scale. Do not exceed 4 grams of acetaminophen in a 24 hr period. Max dose of 2gm for AST/ALT greater than 120 units/L. If given for pain, use the following pain scale: Mild Pain = Pain Score of 1-3, CPOT 1-2 Moderate Pain = Pain Score of 4-6, CPOT 3-4 Severe Pain = Pain Score of 7-10, CPOT 5-8 2032 (Given - Provider: Alberto Dillon RN) 0906 (Given - Provider: Shirley Hart RN)1508 (Given - Provider: Shirley Hart, RN) bisacodyl (DULCOLAX) EC tablet 5 mg(Linked Group 2) 5 mg, Oral, Daily PRN, Constipation, Use if polyethylene glycol is ineffective, Starting on Mon04/04/25 at 2007, Use if no bowel movement after 12 hours. Swallow whole. Do not crush, split, or chew tablet. bisacodyl (DULCOLAX) suppository 10 mg(Linked Group 2) 10 mg, Rectal, Daily PRN, Constipation, Use if bisacodyl oral is ineffective, Starting on Mon04/04/25 at 2007, Use if no bowel movement after 12 hours. Hold for diarrhea Calcium Replacement - Follow Nurse / BPA Driven Protocol Open Order & Select S Electrolyte Replacement Protocol Algorithm to View Details HYDROmorphone (DILAUDID) injection 0.5 mg (CANCELED) 0.5 mg, Intravenous, Every 2 Hours PRN, Severe Pain, Starting on Mon04/04/25 at 2359, For 6 days 12 hours, Based on patient request - if ordered for moderate or severe pain, provider allows for administration of a medication prescribed for a lower pain scale. If given for pain, use the following pain scale: Mild Pain = Pain Score of 1-3, CPOT 1-2 Moderate Pain = Pain Score of 4-6, CPOT 3-4 Severe Pain = Pain Score of 7-10, CPOT 5-8 0413 (Given - Provider: Bob Rosenberg, LU)0614 (Given - Provider: Bob Rosenberg, RN)1006 (Given - Provider: Shirley Hart, LU)1220 (Given - Provider: Shirely Hart, RN)1438 (Given - Provider: Shirley Hart, RN)1628 (Given - Provider: Shirley Hart, RN)1815 (Given - Provider: Shirley Hart, RN)2033 (Given - Provider: Alberto Dillon, RN)2245 (Given - Provider: Alberto Dillon, RN) 0109 (Given - Provider: Alberto Dillon, RN)0655 (Given - Provider: Alberto Dillon, RN)1414 (Given - Provider: Shirley Hart, LU)2124 (Given - Provider: Alberto Dillon, RN) 1003 (Given - Provider: Marguerite Wakefield RN) Magnesium Standard Dose Replacement - Follow Nurse / BPA Driven Protocol Open Order & Select [facility] Electrolyte Replacement Protocol Algorithm to View Details naloxone (NARCAN) injection 0.4 mg(Linked Group 3) 0.4 mg, Intravenous, Every 5 Minutes PRN, Respiratory Depression, Starting on Mon04/07/25 at 2156, If respiratory rate is less than 8 breaths/minute or patient is difficult to arouse stop any narcotics and contact physician. Administer slow IV push. Repeat as ordered until patient's respiratory rate is greater than 12 breaths/minute. naloxone (NARCAN) injection 0.4 mg(Linked Group 4) 0.4 mg, Intravenous, Every 5 Minutes PRN, Respiratory Depression, Starting on Mon04/08/25 at 1708, If respiratory rate is less than 8 breaths/minute or patient is difficult to arouse stop any narcotics and contact physician. Administer slow IV push. Repeat as ordered until patient's respiratory rate is greater than 12 breaths/minute. nitroglycerin (NITROSTAT) SL tablet 0.4 mg 0.4 mg, Sublingual, Every 5 Minutes PRN, Chest Pain, Starting on Mon04/04/25 at 1948, If Pain Unrelieved After 3 Doses Notify MD May administer up to 3 doses per episode. Hold if SBP less than 100. ondansetron ODT (ZOFRAN-ODT) disintegrating tablet 4 mg 4 mg, Translingual, Every 6 Hours PRN, Nausea, Vomiting, Starting on 04/06/25 at 0949, If multiple N/V medications ordered, use in the following order: Ondansetron, Prochlorperazine, Promethazine. Use PO unless patient refuses or patient unable to swallow. Place on tongue and allow to dissolve. oxyCODONE-acetaminophen (PERCOCET) 5-325 MG per tablet 1 tablet () 1 tablet, Oral, Every 6 Hours PRN, Moderate Pain, Starting on Mon04/09/25 at 2119, For 1 day, Based on patient request - if ordered for moderate or severe pain, provider allows for administration of a medication prescribed for a lower pain scale. [ERIC] Do not exceed 4 grams of acetaminophen in a 24 hr period. Max dose of 2gm for AST/ALT greater than 120 units/L If given for pain, use the following pain scale: Mild Pain = Pain Score of 1-3, CPOT 1-2 Moderate Pain = Pain Score of 4-6, CPOT 3-4 Severe Pain = Pain Score of 7-10, CPOT 5-8 4 (Given - Provider: Alberto Dillon RN) 0313 (Given - Provider: Alberto Dillon, LU)0906 (Given - Provider: Shirley Hart, LU)1508 (Given - Provider: Shirley Hart, LU)2030 (Given - Provider: Alberto Dillon, RN) Phosphorus Replacement - Follow Nurse / BPA Driven Protocol Open Order & Select [facility] Electrolyte Replacement Protocol Algorithm to View Details polyethylene glycol (MIRALAX) packet 17 g(Linked Group 2) 17 g, Oral, Daily PRN, Constipation, Use if senna-docusate is ineffective, Starting on Mon04/04/25 at 2007, Use if no bowel movement after 12 hours. Mix in 6-8 ounces of water. Use 4-8 ounces of water, tea, or juice for each 17 gram dose. Potassium Replacement - Follow Nurse / BPA Driven Protocol Open Order & Select [facility] Electrolyte Replacement Protocol Algorithm to View Details sennosides-docusate (PERICOLACE) 8.6-50 MG per tablet 2 tablet(Linked Group 2) 2 tablet, Oral, 2 Times Daily PRN, Constipation, Starting on Mon04/04/25 at 2007, Start bowel management regimen if patient has not had a bowel movement after 12 hours. sodium chloride 0.9 % flush 10 mL(Linked Group 5) 10 mL, Intravenous, As Needed, Line Care, Starting on Mon04/04/25 at 1431 sodium chloride 0.9 % flush 10 mL 10 mL, Intravenous, As Needed, Line Care, Starting on Mon04/04/25 at 2005 sodium chloride 0.9 % flush 10 mL 10 mL, Intravenous, As Needed, Line Care, After Medication Administration, Starting on Mon04/09/25 at 1310 sodium chloride 0.9 % flush 20 mL 20 mL, Intravenous, As Needed, Line Care, After Blood Draws or Blood Product Administration, Starting on Mon04/09/25 at 1310 sodium chloride 0.9 % infusion 40 mL 40 mL, Intravenous, at 100 mL/hr, As Needed, Line Care, Starting on Mon04/04/25 at 2005, Following administration of an IV intermittent medication, flush line with 40mL NS at 100mL/hr. sodium chloride 0.9 % infusion 40 mL 40 mL, Intravenous, at 100 mL/hr, As Needed, Line Care, Starting on Mon04/09/25 at 1310, Following administration of an IV intermittent medication, flush line with 40mL NS at 100mL/hr. Linked Groups Order Group 1: acetaminophen (TYLENOL) tablet 500 mgJump to med 500 mg, Oral, Every 6 Hours PRN, Mild Pain, Headache, Fever, Starting on Mon04/04/25 at 2006, If given for fever, use fever parameter: fever greater than 100.4 F Based on patient request - if ordered for moderate or severe pain, provider allows for administration of a medication prescribed for a lower pain scale. Do not exceed 4 grams of acetaminophen in a 24 hr period. Max dose of 2gm for AST/ALT greater than 120 units/L. If given for pain, use the following pain scale: Mild Pain = Pain Score of 1-3, CPOT 1-2 Moderate Pain = Pain Score of 4-6, CPOT 3-4 Severe Pain = Pain Score of 7-10, CPOT 5-8 Or acetaminophen (TYLENOL) 160 MG/5ML oral solution 500 mgJump to med 500 mg, Oral, Every 6 Hours PRN, Mild Pain, Headache, Fever, Starting on Mon04/04/25 at 2006, If given for fever, use fever parameter: fever greater than 100.4 F Based on patient request - if ordered for moderate or severe pain, provider allows for administration of a medication prescribed for a lower pain scale. Do not exceed 4 grams of acetaminophen in a 24 hr period. Max dose of 2gm for AST/ALT greater than 120 units/L. If given for pain, use the following pain scale: Mild Pain = Pain Score of 1-3, CPOT 1-2 Moderate Pain = Pain Score of 4-6, CPOT 3-4 Severe Pain = Pain Score of 7-10, CPOT 5-8 Or acetaminophen (TYLENOL) suppository 325 mgJump to med 325 mg, Rectal, Every 6 Hours PRN, Mild Pain, Headache, Fever, Starting on Mon04/04/25 at 2006, If given for fever, use fever parameter: fever greater than 100.4 F Based on patient request - if ordered for moderate or severe pain, provider allows for administration of a medication prescribed for a lower pain scale. Do not exceed 4 grams of acetaminophen in a 24 hr period. Max dose of 2gm for AST/ALT greater than 120 units/L. If given for pain, use the following pain scale: Mild Pain = Pain Score of 1-3, CPOT 1-2 Moderate Pain = Pain Score of 4-6, CPOT 3-4 Severe Pain = Pain Score of 7-10, CPOT 5-8 Group 2: sennosides-docusate (PERICOLACE) 8.6-50 MG per tablet 2 tabletJump to med 2 tablet, Oral, 2 Times Daily PRN, Constipation, Starting on Mon04/04/25 at 2007, Start bowel management regimen if patient has not had a bowel movement after 12 hours. And polyethylene glycol (MIRALAX) packet 17 gJump to med 17 g, Oral, Daily PRN, Constipation, Use if senna-docusate is ineffective, Starting on Mon04/04/25 at 2007, Use if no bowel movement after 12 hours. Mix in 6-8 ounces of water. Use 4-8 ounces of water, tea, or juice for each 17 gram dose. And bisacodyl (DULCOLAX) EC tablet 5 mgJump to med 5 mg, Oral, Daily PRN, Constipation, Use if polyethylene glycol is ineffective, Starting on Mon04/04/25 at 2007, Use if no bowel movement after 12 hours. Swallow whole. Do not crush, split, or chew tablet. And bisacodyl (DULCOLAX) suppository 10 mgJump to med 10 mg, Rectal, Daily PRN, Constipation, Use if bisacodyl oral is ineffective, Starting on Mon04/04/25 at 2007, Use if no bowel movement after 12 hours. Hold for diarrhea Group 3: HYDROmorphone (DILAUDID) injection 1 mg (COMPLETED) 1 mg, Intravenous, Every 15 Minutes PRN, Severe Pain, Starting on Mon04/07/25 at 2156, For 2 doses, Max of 2 mg (40 MME) PACU only. (ERIC) Caution: Look alike/sound alike drug alert If given for pain, use the following pain scale: Mild Pain = Pain Score of 1-3, CPOT 1-2 Moderate Pain = Pain Score of 4-6, CPOT 3-4 Severe Pain = Pain Score of 7-10, CPOT 5-8 And naloxone (NARCAN) injection 0.4 mgJump to med 0.4 mg, Intravenous, Every 5 Minutes PRN, Respiratory Depression, Starting on Mon04/07/25 at 2156, If respiratory rate is less than 8 breaths/minute or patient is difficult to arouse stop any narcotics and contact physician. Administer slow IV push. Repeat as ordered until patient's respiratory rate is greater than 12 breaths/minute. Group 4: HYDROmorphone (DILAUDID) injection 1 mg (COMPLETED) 1 mg, Intravenous, Every 15 Minutes PRN, Severe Pain, Starting on Mon04/08/25 at 1708, For 2 doses, Max of 2 mg (40 MME) PACU only. (ERIC) Caution: Look alike/sound alike drug alert If given for pain, use the following pain scale: Mild Pain = Pain Score of 1-3, CPOT 1-2 Moderate Pain = Pain Score of 4-6, CPOT 3-4 Severe Pain = Pain Score of 7-10, CPOT 5-8 And naloxone (NARCAN) injection 0.4 mgJump to med 0.4 mg, Intravenous, Every 5 Minutes PRN, Respiratory Depression, Starting on Mon04/08/25 at 1708, If respiratory rate is less than 8 breaths/minute or patient is difficult to arouse stop any narcotics and contact physician. Administer slow IV push. Repeat as ordered until patient's respiratory rate is greater than 12 breaths/minute. 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
--- OUTSIDE RECORDS SUMMARY | 2025-04-07 17:00 | XMS_ITS | Encounter Summary ---
[facility] Address [address] [place] [address] Care Team Providers Care Fruit Room Hand Name Role Phone Provider, No Known Primary Care Provider Unavail able Reason for Visit * Reason Comments Leg Swelling * Auth/Cert Specialty Diagnoses / Procedures Referred By Contac t Referred To Contact Diagnoses Right BKA infection Referral ID Status Reason Start Date Expiration Date Visits Re quested Visits Authorized [id number] 1 1 Encounter Details Date Type Department Care Team (Late st Contact Info) Description 04/07/2025 6:00 PM EDT - 04/07/2025 6:52 PM EDT Surgery [facility] OR [address] [place] [address] Sushil Dean Jr., MD [address] [place] [address] [address] [id number] LEG DEBRIDEMENT, IRRIGATION Social History Tobacco Use Types Packs/Day Years Used Date Smoking Tobacco: Never Smokeless Tobacco: Never Tobacco Cessation:Counseling Given: Not Answered Alcohol Use Standard Drinks/Week Comments Not Currently 0 (1 standard drink = 0.6 oz pur e alcohol) [facility] Utilities Answer Date Recorded In the past 12 months has [employer] electric, gas, oil, or water company threatened [...] or training? Not on file Preferred Language Palauan 04/07/2025 Sex and Gender Information Value Date [...] 2:25 PM EDT Cherri Grimm RN * [place] Suicide Severity Rating Scale (Screener/Recent Self-Report) [...] Hospital Medicine Services DISCHARGE SUMMARY Patient Name: oWn Dennis : 1980 Date of Admission: 04/04/2025 [...] Date/Time Wound Culture - Swab, Leg, Right [[id number]] (Abnormal) (Susceptibility) Collected: 04/07/252106 Lab Status: Final [...] Units Date/Time FL C Arm During Surgery [[id number]] Resulted: 04/07/252137 Updated: 04/07/252137 Narrative: This procedure was auto-finalized with no dictation required. MRI Tibia Fibula Right With & Without Contrast [[id number]] Collected: 04/07/25 0938 Updated: 04/07/25 1001 Narrative: [...] Buenrostro 04/07/2025 9:58 AM EDT Workstation ID: [id number] MRI Tibia Fibula Right With & Without Contrast [[id number]] Collected: 04/04/252256 Updated: 04/04/252302 Narrative: MRI TIBIA [...] represent a small area of phlegmonous change ([id number] image 10) measuring approximately 1.6 cm which [...] MD 04/04/2025 11:00 PM EDT Workstation ID: [id number] Pending Labs Order Current Status Fungus Culture [...] Male) Date of 1980 Social Security Number [id number] [place] [address] [place] [address] Druze Unknown Marital Status Unknown Admission Date 04/04/2025 Admission Type Emergency Admitting Provider Jadyn Richardson DO Attending Provider Jadyn Richardson DO Department, Room/Bed [facility] 5G, S565/1 Discharge Date Discharge Disposition Discharge Destination Attending Provider: Jadyn Richardson DO Allergies: Ceftin [Cefuroxime], Keflex [Cephalexin], Latex Isolation: None Infection: MRSA (05/11/23) Code Status: CPR Ht: 180.3 cm (71 ) Wt: 134 kg (295 lb) Admission Cmt: None 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 Insurance as of 04/04/2025 Primary Coverage Payor Plan Insurance Group Employer/Plan Group [place] [id number] Payor Plan Address Payor Plan Phone Number Payor Plan Fax Number Effective Dates [employer] [address] [address] 08/10/2023 - None Entered [facility] [address] Subscriber Name Subscriber Date Member ID WON DENNIS 1980 [id number] Emergency Contacts Regional Facilities Manager (Rel.) Home Phone Work Phone Mobile Phone Avril Dennis (Spouse) -- -- [phone] Robert Hackett (Relative) -- -- [phone] [facility] 5G [address] [facility] [address] Patient: ROOM: [facility] Won Dennis [address] [facility] [place] [address] : 1980 SSN: [id number] Sex: M PCP: Provider, No Known Emergency Contact Information Name Relation Home Work Mobile Avril Dennis Spouse [phone] Other Contacts Name Relation Home Work Mobile Robert Hackett Relative [phone] INSURANCE PAYOR PLAN GROUP # SUBSCRIBER ID Primary: Secondary: MEDICARE [employer] [id number] Admitting Diagnosis: 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 He is known to Dr. [...] Jr., MD, 20 mg at 04/09/25906 heparin 66162 units/250 mL (100 units/mL) in 0.45 % NaCl infusion, 18 Units/kg/hr, Intravenous, Titrated, Una Perla, PharmD, Last Rate: 24.1 mL/hr at 04/10/25 [...] Units Date/Time FL C Arm During Surgery [[id number]] Resulted: 04/07/252137 Updated: 04/07/252137 Narrative: This procedure was auto-finalized with no dictation required. MRI Tibia Fibula Right With & Without Contrast [[id number]] Collected: 04/07/2538 Updated: 04/07/25 1001 Narrative: MRI [...] Buenrostro 04/07/2025 9:58 AM EDT Workstation ID: [id number] Impression: Recurrent Right BKA stump abscess/cellulitis- this [...] discussed his disposition with the pharmacist at [facility] today. I will sign off Outpatient orders: 1. Outpatient intravenous antibiotic therapy: Daptomycin 800 mg IV daily to be supplied by [facility] 2. Home health to perform [...] 04/10/251323 Creation Time: 04/10/251323 Signed Expand All [facility] Medicine Services PROGRESS NOTE Patient Name: [...] Date/Time Wound Culture - Swab, Leg, Right [[id number]] (Abnormal) (Susceptibility) Collected: 04/07/252106 Lab Status: Final [...] Row Name 04/06/25 1143 Sit-Stand Transfer Sit-Stand Larue (Transfers) modified independence - Comment, (Sit-Stand Transfer) Pt stood from recliner. Not holding onto walker, pt able to pull his pants up while balancing on his one leg. -LM Row Name 04/06/25 1143 Gait/Stairs (Locomotion) Larue Level (Gait) modified independence - Distance in [...] Motion bilateral lower extremity ROM WFL -LM [facility] Name 04/06/25 1145 Strength Comprehensive (MMT) General Manual Muscle Testing (MMT) Assessment no strength deficits identified BLEs -LM [facility] Name 04/06/25 1145 Balance Balance Assessment sitting [...] Physical Therapist Goals/Plan No documentation. Clinical Impression [facility] 04/06/25 1146 Pain Pretreatment Pain Rating 0/10 - no pain -LM Posttreatment Pain Rating 0/10 - no pain -LM [facility] 04/06/25 1146 Plan of Care Review Plan of Care Reviewed With patient -LM Outcome Evaluation PT evaluation completed. Pt demonstrated independence with all mobility including ambulating 100 feet using rw - no unsteadiness noted. Pt reports he feels at baseline and doesn't think he needs skilled PT while here. Recommend home at d/c. PT signing off. -LM [facility] Name 04/06/25 1146 Therapy Assessment/Plan (PT) Criteria for Skilled Interventions Met (PT) no;no problems identified which require skilled intervention -LM Therapy Frequency (PT) evaluation only -LM Predicted Duration of Therapy Intervention (PT) Eval Only -LM [facility] Name 04/06/25 1146 Vital Signs Pretreatment Heart Rate (beats/min) 86 -LM Posttreatment Heart Rate (beats/min) 96 -LM Pre SpO2 (%) 95 -LM O2 Delivery Pre Treatment room air -LM Post SpO2 (%) 96 -LM O2 Delivery Post Treatment room air -LM Pre Patient Position Sitting -LM Post Patient Position Sitting -LM [facility] Name 04/06/25 1146 Positioning and Restraints Pre-Treatment [...] Nurse Physical Therapy Education Title: PT OT UNIVERSITY TEACHER Therapies (Done) Topic: Physical Therapy (Done) Point: Mobility training (Done) Learning Progress Summary Patient Acceptance, E, VU,DU by at 04/06/2025 1147 Point: Precautions (Done) Learning Progress Summary Patient Acceptance, E, VU,DU by at 04/06/2025 1147 User Cabrera Initials Effective Dates Name Provider Type [facility] 01/24/25 - Susan Cavazos, PT Physical Therapist [...] Description Service Date Service Provider Modifiers Qty [id number] PT EVAL LOW COMPLEXITY 3 04/06/2025 Susan [...] mg Daily 04/05/2025 -- Route: Oral heparin 58679 units/250 mL (100 units/mL) in 0.45 % [...] Dean MD April 21 vs April 22 [facility] [address], [address] [facility], [address] Please schedule at [phone] VONDA Garcia 04/11/25 08:32 EDT Cosigned by Susihl Dean Jr., MD [...] Date/Time Wound Culture - Swab, Leg, Right [[id number]] (Abnormal) (Susceptibility) Collected: 04/07/252106 Lab Status: Final [...] mg Daily 04/05/2025 -- Route: Oral heparin 23292 units/250 mL (100 units/mL) in 0.45 % [...] Dean MD April 21 vs April 22 [facility] [address] [facility] [address], [address] [facility], [address] Please schedule at [phone] VONDA Garcia 04/10/25 09:01 EDT Cosigned by Sushil Dean Jr., MD at 04/19/2025 10:33 AM EDT Associated attestation - Sushil Dean Jr., MD - 04/19/2025 10:33 AM EDT I have reviewed this documentation and agree. * Carlton Mead MD - 04/10/2025 7:38 AM EDT Images from the original note were not included. INFECTIOUS DISEASE Progress Note Won Dennis 1980 [id number] Date of Consult: 04/10/2025 Admission Date: 04/04/2025 [...] which prompted him to seek treatment at [facility]. He is known to Dr. [...] IRRIGATION; Surgeon: Sushil Dean Jr., MD; Location: [facility] OR; Service: Orthopedics; Laterality: Right; PLACEMENT OF WOUND VAC Right 04/07/2025 Procedure: WOUND VACUUM ASSISTED CLOSURE; Surgeon: Sushil Dean Jr., MD; Location: [facility] OR; Service: Orthopedics; Laterality: Right; WOUND CLOSURE [...] Jr., MD, 20 mg at 04/09/25906 heparin 47435 units/250 mL (100 units/mL) in 0.45 % [...] 0.4 mg, Intravenous, Q5 Min PRN, Benito Daen Jr., MD [COMPLETED] HYDROmorphone (DILAUDID) injection 1 [...] Units Date/Time FL C Arm During Surgery [[id number]] Resulted: 04/07/252137 Updated: 04/07/252137 Narrative: This procedure was auto-finalized with no dictation required. MRI Tibia Fibula Right With & Without Contrast [[id number]] Collected: 04/07/25937 Updated: 04/07/25 100 Narrative: MRI [...] Buenrostro 04/07/2025 9:58 AM EDT Workstation ID: [id number] Impression: Recurrent Right BKA stump abscess/cellulitis- this [...] discussed his disposition with the pharmacist at [facility] today. I will sign off Outpatient orders: 1. Outpatient intravenous antibiotic therapy: Daptomycin 800 mg IV daily to be supplied by [facility] 2. Home health to perform [...] MD 04/10/2025 07:38 EDT * Larisa Hamilton [facility] - 04/10/2025 7:17 AM EDT [...] Date/Time Wound Culture - Swab, Leg, Right [[id number]] (Abnormal) Collected: 04/07/252106 Lab Status: Preliminary result [...] Jason Álvarez DO 04/09/25 * Larisa Hamilton [facility] - 04/09/2025 11:36 AM EDT [...] mg Daily 04/05/2025 -- Route: Oral heparin 22016 units/250 mL (100 units/mL) in 0.45 % [...] in 2 weeks for incision check, radiographs [facility] [address], [address] [facility], [address] Please schedule at [phone] VONDA Garcia 04/09/25 09:18 EDT Cosigned by Sushil Dean Jr., MD at 04/19/2025 10:33 AM EDT Associated attestation - Sushil Dean Jr., MD - 04/19/2025 10:33 AM EDT I have reviewed this documentation and agree. * Carlton Mead MD - 04/09/2025 8:25 AM EDT Images from the original note were not included. INFECTIOUS DISEASE Progress Note Won Dennis 1980 [id number] Date of Consult: 04/09/2025 Admission Date: 04/04/2025 [...] which prompted him to seek treatment at [facility]. He is known to Dr. [...] Surgeon: Sushil Dean Jr., MD; Location: [facility]; Service: Orthopedics; Laterality: Right; PLACEMENT OF [...] MD, 20 mg at 04/08/25 0800 heparin 72246 units/250 mL (100 units/mL) in 0.45 % [...] Units Date/Time FL C Arm During Surgery [[id number]] Resulted: 04/07/252137 Updated: 04/07/252137 Narrative: This procedure was auto-finalized with no dictation required. MRI Tibia Fibula Right With & Without Contrast [[id number]] Collected: 04/07/25 0938 Updated: 04/07/25 1001 Narrative: [...] Chitra 04/07/2025 9:58 AM EDT Workstation ID: [id number] Impression: Recurrent Right BKA stump abscess/cellulitis- this [...] Buenrostro 04/07/2025 9:58 AM EDT Workstation ID: [id number] I have personally reviewed the therapy plans: [...] Patient Jason Álvarez, DO 04/08/25 * Hamilton, Larisa, [facility] - 04/08/2025 11:48 AM EDT [...] mg Daily 04/05/2025 -- Route: Oral heparin 10175 units/250 mL (100 units/mL) in 0.45 % [...] INFECTIOUS DISEASE Progress Note Won Dennis 1980 [id number] Date of Consult: 04/08/2025 Admission Date: 04/04/2025 [...] which prompted him to seek treatment at [facility]. He is known to Dr. [...] Right 04/07/2025 Procedure: LEG DEBRIDEMENT, IRRIGATION; Surgeon: uSshil Dean Jr., MD; Location: [facility] OR; [...] Oral, Q6H PRN, 500 mg at 04/06/25 2214 OR acetaminophen (TYLENOL) 160 MG/5ML oral solution [...] Jr., MD, 20 mg at 04/07/25950 heparin 16282 units/250 mL (100 units/mL) in 0.45 % [...] Units Date/Time FL C Arm During Surgery [[id number]] Resulted: 04/07/252137 Updated: 04/07/252137 Narrative: This procedure was auto-finalized with no dictation required. MRI Tibia Fibula Right With & Without Contrast [[id number]] Collected: 04/07/25 0938 Updated: 04/07/25 1001 Narrative: [...] Buenrostro 04/07/2025 9:58 AM EDT Workstation ID: [id number] Impression: 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 (Treated by ID in [place] Dr. Harris). Dr. Torres treated him with [...] Buenrostro 04/07/2025 9:58 AM EDT Workstation ID: [id number] I have personally reviewed the therapy plans: [...] Jason DO Preeti 04/07/25 * Larisa Hamilton, [facility] - 04/07/2025 11:56 AM EDT [...] INFECTIOUS DISEASE Progress Note Won Dennis 1980 [id number] Date of Consult: 04/07/2025 Admission Date: 04/04/2025 [...] which prompted him to seek treatment at [facility]. He is known to Dr. [...] 1 Application, 1 Application, Topical, Q12H, Ayha Valentin APRN, 1 Application at 04/06/252101 DAPTOmycin [...] MD, 20 mg at 04/06/25 0900 heparin 46658 units/250 mL (100 units/mL) in 0.45 % NaCl infusion, 18 Units/kg/hr, Intravenous, Titrated, Cherri Beatty, [facility], Last Rate: 24.1 mL/hr at [...] With & Without Contrast - In process [[id number]] Resulted: 04/07/25828 Updated: 04/07/25828 This result has not been signed. Information might be incomplete. MRI Tibia Fibula Right With & Without Contrast [[id number]] Collected: 04/04/252256 Updated: 04/04/253 Narrative: MRI TIBIA [...] represent a small area of phlegmonous change ([id number] image 10) measuring approximately 1.6 cm which [...] MD 04/04/2025 11:00 PM EDT Workstation ID: [id number] Impression: 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 (Treated by ID in [place] Dr. Harris). Dr. Torres treated him with [...] mg Daily 04/05/2025 -- Route: Oral heparin 44655 units/250 mL (100 units/mL) in 0.45 % [...] MD 04/07/25 06:07 EDT * Cherri Beatty [facility] - 04/06/2025 1:47 PM EDT [...] MD 04/04/2025 11:00 PM EDT Workstation ID: [id number] I have personally reviewed the therapy plans: [...] mg Daily 04/05/2025 -- Route: Oral heparin 10080 units/250 mL (100 units/mL) in 0.45 % [...] INFECTIOUS DISEASE follow up. Won Dennis 1980 [id number] Date of Consult: 04/06/2025 Admission Date: 04/04/2025 [...] which prompted him to seek treatment at [facility]. He is known to Dr. [...] MD, 20 mg at 04/06/25 0900 heparin 61014 units/250 mL (100 units/mL) in 0.45 % NaCl infusion, 18 Units/kg/hr, Intravenous, Titrated, Cherri Beatty [facility], Last Rate: 24.1 mL/hr at [...] 40 mL, 40 mL, Intravenous, PRN, Leonora Shepehrd MD tamsulosin (FLOMAX) 24 hr capsule 0.4 [...] Tibia Fibula Right With & Without Contrast [[id number]] Collected: 04/04/252256 Updated: 04/04/252302 Narrative: MRI TIBIA [...] represent a small area of phlegmonous change (dabrft87 image 10) measuring approximately 1.6 cm which [...] MD 04/04/2025 11:00 PM EDT Workstation ID: [id number] Impression: 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 (Treated by ID in [place] Dr. Harris). Dr. Torres treated him with [...] MD 04/04/2025 11:00 PM EDT Workstation ID: [id number] I have personally reviewed the therapy plans: [...] MD 04/04/2025 11:00 PM EDT Workstation ID: [id number] Assessment & Plan Assessment & Plan Won [...] EDTAssociated Order(s): IP CONSULT TO ORTHOPEDIC SURGERY [facility], [facility] [address] [address] Orthopedic Consult Patient: Won Dennis Date of [...] was evaluated in the emergency department in [place], was discharged with instructions for follow-up. He [...] tablet by mouth Daily. 04/03/2025 Morning Lactobacillus-Inulin ([facility]) capsule Take 200 mg by mouth [...] MD 04/04/2025 11:00 PM EDT Workstation ID: [id number] Assessment: Right BKA infection 44-year-old male with [...] DISEASE CONSULT/INITIAL HOSPITAL VISIT Won Dennis 1980 [id number] Date of Consult: 04/05/2025 Admission Date: 04/04/2025 [...] which prompted him to seek treatment at [facility]. He is known to Dr. [...] Leonora Shepherd MD, 40 mg at 04/04/25 9421 sennosides-docusate (PERICOLACE) 8.6-50 MG per tablet 2 [...] MD, 20 mg at 04/05/25 09 heparin 62074 units/250 mL (100 units/mL) in 0.45 % [...] Leonora Shepherd MD, 10 mg at 04/04/25 9704 Pharmacy to Dose Heparin, , Not Applicable, Continuous PRAmber, Una Perla, PharmD Pharmacy to dose vancomycin, , Not Applicable, Continuous PRAmber, Leonora Shepherd MD Phosphorus Replacement - Follow Nurse / BPA Driven Protocol, , Not Applicable, PRJoao Pearson Laurie, MD Potassium Replacement - Follow Nurse [...] Tibia Fibula Right With & Without Contrast [[id number]] Collected: 04/04/252256 Updated: 04/04/252302 Narrative: MRI TIBIA [...] MD 04/04/2025 11:00 PM EDT Workstation ID: [id number] Impression: 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 (Treated by ID in [place] Dr. Harris). Dr. Torres treated him with [...] Recent Flowsheet Documentation Taken 04/09/2025 0000 by Bbo Rosenberg RN Medication Review/Management: medications [...] Recent Flowsheet Documentation Taken 04/09/2025 0000 by oBb Rosenberg RN Medication Review/Management: medications reviewed Taken [...] Jr., MD - 04/08/2025 3:51 PM EDT [facility] OPERATIVE REPORT PATIENT NAME: Won Dennis DATE OF : 1980 PREOP DIAGNOSIS: Right Right below-knee amputation infection POSTOP DIAGNOSIS: Same. PROCEDURE: Right Right 79556: Secondary closure below-knee amputation SURGEON: Sushil Dean MD OPERATIVE TEAM: Chopper Gun Operator: Susi Grullon RN Scrub Person: Mary Paredes Scrub Person Extra: Hortencia Toribio Other: Katt Gotti RN; Charis Neville RN ANESTHETIST: Anesthesiologist: Ulises Hoffman MD ROTOR WINDER: Stan Casillas CRNA Student Nurse Advertising Designer: Karol Albert SRNA ANESTHESIA: Choice ESTIMATED BLOOD [...] CULTURE (Canceled) Sushil Dean Jr., MD 04/08/25 9808 Description: RIGHT LEG DEEP WOUND FOR CULTURE COMPLICATIONS: None. DISPOSITION: Stable to recovery. INDICATIONS: 44 y.o. male with Right Right status post below-knee amputation debridement, irrigation with wound vacuum-assisted closure. I had a discussion with the patient regarding [...] Jr., MD - 04/07/2025 9:03 PM EDT [facility], [place] [address] OPERATIVE REPORT PATIENT NAME: Won Dennis DATE OF : 1980 PREOP DIAGNOSIS: Right Right below knee amputation stump infection POSTOP DIAGNOSIS: Same. PROCEDURE: Right Right 99491: Incision and drainage of surgical site infection 44345: Debridement of skin, subcutaneous tissue, muscle 40802: Wound vacuum-assisted closure SURGEON: Sushil Dean MD OPERATIVE TEAM: Chopper Gun Operator: Anum Sanchez RN Scrub Person: Hortencia Toribio; Gerald Ivey ELECTRICAL HELPER: Anesthesiologist: Luci Alonso DO ANESTHESIA: General ESTIMATED [...] ago swellling of the area. seen at [facility] yesterday for CT and US, [...] this chart in the absence of a senior maintenance mechanic. No orders to display RADIOLOGY: [x] Radiologist's [...] is discharging home with outpatient infusion at [facility]. He has an appointment with [facility] at 8:00 am tomorrow. They will do PICC line dressing changes. DEBRA has spoke with Dena at [facility] today multiple times to get [...] with KELLEE and given themhis Medicare number [id number], she sent it to Admission. DEBRA spoke with Kerri, with [facility], and explained that he had Medicare A and B. However, it will not cover home infusion. It will be $64.00 a day out of packet. Patients can go to the Infusion center at [facility], and it will cover the cost as an outpatient. He will need to go there every day for infusion. They will be able to do the patients' PICC line dressing changes and lab work. DEBRA called Dena [facility] Outpatient infusion center they can accept patient and start him. He is known for their facility. The Facility will need to run it through his insurance first. CM faxed the orders over to [facility] at [phone]. CM will follow up with them tomorrow at [facility] to make sure they received [...] 04/09/2025 2:51 PM EDT Continued Stay Note [facility] Patient Name: Won Dennis Today's Date: 04/09/2025 Admit Date: 04/04/2025 Plan: Home Discharge Plan Row Name 04/09/25 1311 Plan Plan Home Patient/Family in Agreement with Plan yes Plan Comments CM spoke with patient at bedside today. Wheelchair from [employer] is at bedside. Patient getting PICC line [...] note were not included. Discharge Planning Assessment [facility] Patient Name: Won Dennis Today's [...] family Patient/Family Anticipated Services at Transition case reviewertalent development manager Anticipated family or friend will provide Discharge Needs Assessment Equipment Currently Used at Home glucometer;shower chair;pulse ox;bp cuff;prosthesis;crutches Equipment Needed After Discharge none Discharge Plan Row Name 04/07/25 1144 Plan Plan Home Patient/Family in Agreement with Plan yes Plan Comments CM spoke with patient at bedside today. Patient lives with and his 5 kids in [facility]. 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 He has walker, cane, shower chair, and crutches. He requested a wheelchair for home. CM [facility] He is not current with home health services. PCP is Dr. Jordan. Insurance is [employer] [place]. Patient discharge plan is home with priavte transport. CM will follow for any discharge needs. Final Discharge Disposition Code 01 - home or self-care Continued Care and Services - Admitted Since 04/04/2025 No active coordination exists. Demographic Summary Row Name 04/07/25 1143 General Information Arrived From hospital Preferred Language Palauan Functional Status Row Name 04/07/25 1143 Functional [...] CBC Auto Differential (04/11/2025 3:40 AM EDT) [facility] WBC 7.87 3.40 - 10.80 10*3/mm3 04/11/2025 4:02 AM EDT [facility] RBC 4.70 4.14 - 5.80 10*6/mm3 04/11/2025 4:02 AM [facility] Hemoglobin 12.8(L) 13.0 - 17.7 g/dL 04/11/2025 4:02 AM [facility] Hematocrit 40.5 37.5 - 51.0 % 04/11/2025 4:02 AM [facility] MCV 86.2 79.0 - 97.0 fL 04/11/2025 4:02 AM [facility] MCH 27.2 26.6 - 33.0 pg 04/11/2025 4:02 AM [facility] MCHC 31.6 31.5 - 35.7 g/dL 04/11/2025 4:02 AM [facility] RDW 12.9 12.3 - 15.4 % 04/11/2025 4:02 AM [facility] RDW-SD 40.5 37.0 - 54.0 fl 04/11/2025 4:02 AM [facility] MPV 9.2 6.0 - 12.0 fL 04/11/2025 4:02 AM [facility] Platelets 267 140 - 450 10*3/mm3 04/11/2025 4:02 AM [facility] Neutrophil % 59.5 42.7 - 76.0 % 04/11/2025 4:02 AM [facility] Lymphocyte % 26.3 19.6 - 45.3 % 04/11/2025 4:02 AM [facility] Monocyte % 9.3 5.0 - 12.0 % 04/11/2025 4:02 AM [facility] Eosinophil % 4.1 0.3 - 6.2 % 04/11/2025 4:02 AM [facility] Basophil % 0.4 0.0 - 1.5 % 04/11/2025 4:02 AM [facility] Immature Grans % 0.4 0.0 - 0.5 % 04/11/2025 4:02 AM [facility] Neutrophils, Absolute 4.69 1.70 - 7.00 10*3/mm3 04/11/2025 4:02 AM EDT [facility] Lymphocytes, Absolute 2.07 0.70 - 3.10 10*3/mm3 04/11/2025 4:02 AM EDT [facility] Monocytes, Absolute 0.73 0.10 - 0.90 10*3/mm3 04/11/2025 4:02 AM EDT [facility] Eosinophils, Absolute 0.32 0.00 - 0.40 10*3/mm3 04/11/2025 4:02 AM EDT [facility] Basophils, Absolute 0.03 0.00 - 0.20 10*3/mm3 04/11/2025 4:02 AM EDT [facility] Immature Grans, Absolute 0.03 0.00 - 0.05 10*3/mm3 04/11/2025 4:02 AM EDT [facility] nRBC 0.0 0.0 - 0.2 /100 WBC 04/11/2025 4:02 AM EDT [facility] Blood Venipuncture / Unknown 04/11/2025 3:40 AM EDT 04/11/2025 3:59 AM EDT us Sushil Dean Jr., MD LAB BLOOD ORDERABLES Fi nal Result [facility]
[address] [place] [address], * (ABNORMAL) Comprehensive Metabolic Panel (04/11/2025 3:40 AM EDT) [facility] Signature Glucose 108(H) 65 - 99 mg/dL 04/11/2025 4:19 AM EDT [facility] BUN 12.5 6.0 - 20.0 mg/dL 04/11/2025 4:19 AM EDT [facility] Creatinine 0.68(L) 0.76 - 1.27 mg/dL 04/11/2025 4:19 AM [facility] Sodium 140 136 - 145 mmol/L 04/11/2025 4:19 AM [facility] Potassium 3.8 3.5 - 5.2 mmol/L 04/11/2025 4:19 AM [facility] Chloride 105 98 - 107 mmol/L 04/11/2025 4:19 AM [facility] CO2 28.2 22.0 - 29.0 mmol/L 04/11/2025 4:19 AM [facility] Calcium 8.2(L) 8.6 - 10.5 mg/dL 04/11/2025 4:19 AM [facility] Total Protein 6.1 6.0 - 8.5 g/dL 04/11/2025 4:19 AM [facility] Albumin 3.1(L) 3.5 - 5.2 g/dL 04/11/2025 4:19 AM [facility] ALT (SGPT) 52(H) 1 - 41 U/L 04/11/2025 4:19 AM [facility] AST (SGOT) 40 1 - 40 U/L 04/11/2025 4:19 AM [facility] Alkaline Phosphatase 99 39 - 117 U/L 04/11/2025 4:19 AM [facility] Total Bilirubin 0.2 0.0 - 1.2 mg/dL 04/11/2025 4:19 AM [facility] Globulin 3.0 gm/dL 04/11/2025 4:19 AM [facility] Comment:Calculated Result A/G Ratio 1.0 g/dL 04/11/2025 4:19 AM [facility] BUN/Creatinine Ratio 18.4 7.0 - 25.0 04/11/2025 4:19 AM [facility] Anion Gap 6.8 5.0 - 15.0 mmol/L 04/11/2025 4:19 AM [facility] eGFR 117.5 >60.0 mL/min/1.7 3 04/11/2025 4:19 AM EDT [facility] Blood Venipuncture / Unknown 04/11/2025 [...] include race as a factor Rosario Hill [employer] LAB BLOOD ORDERABLES Final Result [facility]
[address] [place] [address], * (ABNORMAL) CBC Auto Differential (04/10/2025 3:46 AM EDT) WBC 9.60 3.40 - 10.80 10*3/mm3 04/10/2025 3:56 AM EDT [facility] RBC 4.67 4.14 - 5.80 10*6/mm3 04/10/2025 3:56 AM EDT [facility] Hemoglobin 12.9(L) 13.0 - 17.7 g/dL 04/10/2025 3:56 AM EDT [facility] Hematocrit 40.1 37.5 - 51.0 % 04/10/2025 3:56 AM EDT [facility] MCV 85.9 79.0 - 97.0 fL 04/10/2025 3:56 AM EDT [facility] MCH 27.6 26.6 - 33.0 pg 04/10/2025 3:56 AM EDT [facility] MCHC 32.2 31.5 - 35.7 g/dL 04/10/2025 3:56 AM [facility] RDW 12.9 12.3 - 15.4 % 04/10/2025 3:56 AM [facility] RDW-SD 40.5 37.0 - 54.0 fl 04/10/2025 3:56 AM [facility] MPV 9.5 6.0 - 12.0 fL 04/10/2025 3:56 AM EDT [facility] Platelets 227 140 - 450 10*3/mm3 04/10/2025 3:56 AM [facility] Neutrophil % 59.1 42.7 - 76.0 % 04/10/2025 3:56 AM [facility] Lymphocyte % 29.0 19.6 - 45.3 % 04/10/2025 3:56 AM [facility] Monocyte % 8.1 5.0 - 12.0 % 04/10/2025 3:56 AM [facility] Eosinophil % 3.2 0.3 - 6.2 % 04/10/2025 3:56 AM [facility] Basophil % 0.4 0.0 - 1.5 % 04/10/2025 3:56 AM [facility] Immature Grans % 0.2 0.0 - 0.5 % 04/10/2025 3:56 AM [facility] Neutrophils, Absolute 5.67 1.70 - 7.00 10*3/mm3 04/10/2025 3:56 AM [facility] Lymphocytes, Absolute 2.78 0.70 - 3.10 10*3/mm3 04/10/2025 3:56 AM [facility] Monocytes, Absolute 0.78 0.10 - 0.90 10*3/mm3 04/10/2025 3:56 AM [facility] Eosinophils, Absolute 0.31 0.00 - 0.40 10*3/mm3 04/10/2025 3:56 AM [facility] Basophils, Absolute 0.04 0.00 - 0.20 10*3/mm3 04/10/2025 3:56 AM EDT [facility] Immature Grans, Absolute 0.02 0.00 - 0.05 10*3/mm3 04/10/2025 3:56 AM EDT [facility] nRBC 0.0 0.0 - 0.2 /100 WBC 04/10/2025 3:56 AM EDT [facility] Blood Venipuncture / Unknown 04/10/2025 3:46 AM EDT 04/10/2025 3:53 AM EDT us Jason Álvarez DO LAB BLOOD ORDERABLES Final Resul t [facility]
[address] [place] [address], * (ABNORMAL) Basic Metabolic Panel (04/10/2025 3:46 AM EDT) Glucose 125(H) 65 - 99 mg/dL 04/10/2025 4:20 AM EDT [facility] BUN 15.9 6.0 - 20.0 mg/dL 04/10/2025 4:20 AM EDT [facility] Creatinine 0.77 0.76 - 1.27 mg/dL 04/10/2025 4:20 AM EDT [facility] Sodium 137 136 - 145 mmol/L 04/10/2025 4:20 AM EDT [facility] Potassium 3.9 3.5 - 5.2 mmol/L 04/10/2025 4:20 AM EDT [facility] Chloride 102 98 - 107 mmol/L 04/10/2025 4:20 AM EDT [facility] CO2 26.9 22.0 - 29.0 mmol/L 04/10/2025 4:20 AM EDT [facility] Calcium 7.9(L) 8.6 - 10.5 mg/dL 04/10/2025 4:20 AM EDT [facility] BUN/Creatinine Ratio 20.6 7.0 - 25.0 04/10/2025 4:20 AM EDT [facility] Anion Gap 8.1 5.0 - 15.0 mmol/L 04/10/2025 4:20 AM EDT [facility] eGFR 113.2 >60.0 mL/min/1.7 3 04/10/2025 4:20 AM EDT [facility] Blood Venipuncture / Unknown 04/10/2025 3:46 AM EDT 04/10/2025 3:52 AM EDT Narrative [facility] - 04/10/2025 4:20 AM EDT [...] DO LAB BLOOD ORDERABLES Final Resul t [facility]
[address] [place] [address], * Heparin Anti-Xa (04/10/2025 3:46 AM EDT) Heparin Anti-Xa (UFH) 0.35 0.30 - 0.70 IU/ml 04/10/2025 4:23 AM EDT [facility] Blood Venipuncture / Unknown 04/10/2025 3:46 AM EDT 04/10/2025 3:53 AM EDT Larisa Hamilton [facility] LAB BLOOD ORDERABLES Final R esult [facility]
[address] [place] [address], * Heparin Anti-Xa (04/09/2025 10:05 AM EDT) Pathologist [facility] Heparin Anti-Xa (UFH) 0.36 0.30 - 0.70 IU/ml 04/09/2025 11:12 AM EDT [facility] Blood Venipuncture / Unknown 04/09/2025 10:05 AM EDT 04/09/2025 10:47 AM EDT Larisa Hamilton [facility] LAB BLOOD ORDERABLES Final R esult [facility]
[address] [place] [address], * (ABNORMAL) CBC Auto Differential (04/09/2025 4:18 AM EDT) Pathologist [facility] WBC 11.00(H) 3.40 - 10.80 10*3/mm3 04/09/2025 4:50 AM EDT [facility] RBC 4.70 4.14 - 5.80 10*6/mm3 04/09/2025 4:50 AM EDT [facility] Hemoglobin 13.0 13.0 - 17.7 g/dL 04/09/2025 4:50 AM EDT [facility] Hematocrit 40.4 37.5 - 51.0 % 04/09/2025 4:50 AM EDT [facility] MCV 86.0 79.0 - 97.0 fL 04/09/2025 4:50 AM EDT [facility] MCH 27.7 26.6 - 33.0 pg 04/09/2025 4:50 AM EDT [facility] MCHC 32.2 31.5 - 35.7 g/dL 04/09/2025 4:50 AM EDT [facility] RDW 12.8 12.3 - 15.4 % 04/09/2025 4:50 AM [facility] RDW-SD 39.9 37.0 - 54.0 fl 04/09/2025 4:50 AM [facility] MPV 10.0 6.0 - 12.0 fL 04/09/2025 4:50 AM [facility] Platelets 211 140 - 450 10*3/mm3 04/09/2025 4:50 AM [facility] Neutrophil % 74.8 42.7 - 76.0 % 04/09/2025 4:50 AM [facility] Lymphocyte % 15.4(L) 19.6 - 45.3 % 04/09/2025 4:50 AM [facility] Monocyte % 8.5 5.0 - 12.0 % 04/09/2025 4:50 AM [facility] Eosinophil % 0.6 0.3 - 6.2 % 04/09/2025 4:50 AM [facility] Basophil % 0.4 0.0 - 1.5 % 04/09/2025 4:50 AM [facility] Immature Grans % 0.3 0.0 - 0.5 % 04/09/2025 4:50 AM [facility] Neutrophils, Absolute 8.23(H) 1.70 - 7.00 10*3/mm3 04/09/2025 4:50 AM [facility] Lymphocytes, Absolute 1.69 0.70 - 3.10 10*3/mm3 04/09/2025 4:50 AM [facility] Monocytes, Absolute 0.94(H) 0.10 - 0.90 10*3/mm3 04/09/2025 4:50 AM [facility] Eosinophils, Absolute 0.07 0.00 - 0.40 10*3/mm3 04/09/2025 4:50 AM [facility] Basophils, Absolute 0.04 0.00 - 0.20 10*3/mm3 04/09/2025 4:50 AM [facility] Immature Grans, Absolute 0.03 0.00 - 0.05 10*3/mm3 04/09/2025 4:50 AM EDT [facility] nRBC 0.0 0.0 - 0.2 /100 WBC 04/09/2025 4:50 AM EDT [facility] Blood Venipuncture / Unknown 04/09/2025 4:18 AM EDT 04/09/2025 4:31 AM EDT Sushil Dean Jr., MD LAB BLOOD ORDERABLES Fi nal Result [facility]
[address] [place] [address], * Heparin Anti-Xa (04/09/2025 4:18 AM EDT) Heparin Anti-Xa (UFH) 0.41 0.30 - 0.70 IU/ml 04/09/2025 4:53 AM EDT [facility] Blood Venipuncture / Unknown 04/09/2025 4:18 AM EDT 04/09/2025 4:31 AM EDT Una LundbergD LAB BLOOD ORDERABLES Final R esult [facility]
[address] [place] [address], * (ABNORMAL) Basic Metabolic Panel (04/09/2025 4:18 AM EDT) Glucose 147(H) 65 - 99 mg/dL 04/09/2025 5:33 AM EDT [facility] BUN 23.0(H) 6.0 - 20.0 mg/dL 04/09/2025 5:33 AM EDT [facility] Creatinine 1.15 0.76 - 1.27 mg/dL 04/09/2025 5:33 AM EDT [facility] Sodium 135(L) 136 - 145 mmol/L 04/09/2025 5:33 AM EDT [facility] Potassium 4.2 3.5 - 5.2 mmol/L 04/09/2025 5:33 AM EDT [facility] Chloride 100 98 - 107 mmol/L 04/09/2025 5:33 AM EDT [facility] CO2 26.0 22.0 - 29.0 mmol/L 04/09/2025 5:33 AM EDT [facility] Calcium 8.2(L) 8.6 - 10.5 mg/dL 04/09/2025 5:33 AM EDT [facility] BUN/Creatinine Ratio 20.0 7.0 - 25.0 04/09/2025 5:33 AM EDT [facility] Anion Gap 9.0 5.0 - 15.0 mmol/L 04/09/2025 5:33 AM EDT [facility] eGFR 80.5 >60.0 mL/min/1.7 3 04/09/2025 5:33 AM EDT [facility] Blood Venipuncture / Unknown 04/09/2025 4:18 AM EDT 04/09/2025 4:29 AM EDT [facility] - 04/09/2025 5:33 AM EDT GFR [...] MD LAB BLOOD ORDERABLES Fi nal Result [facility]
[address] [place] [address], * Wound Culture - Swab, Leg, Right (04/08/2025 3:40 PM EDT) Wound Culture No growth at 3 days ALIZA 04/11/2025 10:40 AM EDT [facility] Gram Stain Few (2+) WBCs seen 04/11/2025 10:40 AM EDT [facility] Gram Stain No organisms seen 04/11/2025 10:40 AM EDT [facility] Swab Structure of right lower limb / Unknown 04/08/2025 3:40 PM EDT 04/08/2025 8:05 PM EDT Sushil Dean Jr., MD MICROBIOLOGY - GENERAL ORDERABLES Final Result Performing Organization Address City/[facility]/ZIP Co de Phone Number [facility]
[address] [place] [address], [facility]
[address] [place] [address], * Anaerobic Culture - Swab, Leg, Right [...] [facility]
[address] [place] [address], * Scan Slide (04/08/2025 8:41 AM EDT) RBC Morphology Normal Normal 04/08/2025 11:02 AM EDT [facility] WBC Morphology Normal Normal 04/08/2025 11:02 AM EDT [facility] Platelet Estimate Adequate Normal 04/08/2025 11:02 AM EDT [facility] Clumped Platelets Present None Seen 04/08/2025 11:02 AM EDT [facility] Blood Venipuncture / Unknown 04/08/2025 8:41 AM EDT 04/08/2025 9:10 AM EDT Una Minda PharmD LAB BLOOD ORDERABLES Final R esult [facility]
[address] [place] [address], * (ABNORMAL) CBC Auto Differential (04/08/2025 8:41 AM EDT) WBC 10.07 3.40 - 10.80 10*3/mm3 04/08/2025 11:02 AM EDT [facility] RBC 5.01 4.14 - 5.80 10*6/mm3 04/08/2025 11:02 AM EDT [facility] Hemoglobin 14.0 13.0 - 17.7 g/dL 04/08/2025 11:02 AM EDT [facility] Hematocrit 42.7 37.5 - 51.0 % 04/08/2025 11:02 AM EDT [facility] MCV 85.2 79.0 - 97.0 fL 04/08/2025 11:02 AM EDT [facility] MCH 27.9 26.6 - 33.0 pg 04/08/2025 11:02 AM EDT [facility] MCHC 32.8 31.5 - 35.7 g/dL 04/08/2025 11:02 AM EDT [facility] RDW 12.6 12.3 - 15.4 % 04/08/2025 11:02 AM EDT [facility] RDW-SD 38.9 37.0 - 54.0 fl 04/08/2025 11:02 AM [facility] MPV 11.0 6.0 - 12.0 fL 04/08/2025 11:02 AM [facility] Platelets 118(L) 140 - 450 10*3/mm3 04/08/2025 11:02 AM [facility] Neutrophil % 85.1(H) 42.7 - 76.0 % 04/08/2025 11:02 AM [facility] Lymphocyte % 9.3(L) 19.6 - 45.3 % 04/08/2025 11:02 AM [facility] Monocyte % 4.6(L) 5.0 - 12.0 % 04/08/2025 11:02 AM [facility] Eosinophil % 0.3 0.3 - 6.2 % 04/08/2025 11:02 AM [facility] Basophil % 0.2 0.0 - 1.5 % 04/08/2025 11:02 AM [facility] Immature Grans % 0.5 0.0 - 0.5 % 04/08/2025 11:02 AM [facility] Neutrophils, Absolute 8.57(H) 1.70 - 7.00 10*3/mm3 04/08/2025 11:02 AM [facility] Lymphocytes, Absolute 0.94 0.70 - 3.10 10*3/mm3 04/08/2025 11:02 AM [facility] Monocytes, Absolute 0.46 0.10 - 0.90 10*3/mm3 04/08/2025 11:02 AM [facility] Eosinophils, Absolute 0.03 0.00 - 0.40 10*3/mm3 04/08/2025 11:02 AM [facility] Basophils, Absolute 0.02 0.00 - 0.20 10*3/mm3 04/08/2025 11:02 AM [facility] Immature Grans, Absolute 0.05 0.00 - 0.05 10*3/mm3 04/08/2025 11:02 AM EDT [facility] nRBC 0.0 0.0 - 0.2 /100 WBC 04/08/2025 11:02 AM EDT [facility] Blood Venipuncture / Unknown 04/08/2025 8:41 AM EDT 04/08/2025 9:10 AM EDT Una Perla PharmD LAB BLOOD ORDERABLES Final R esult [facility]
[address] [place] [address], * (ABNORMAL) Basic Metabolic Panel (04/08/2025 8:41 AM EDT) Glucose 125(H) 65 - 99 mg/dL 04/08/2025 9:51 AM EDT [facility] BUN 13.2 6.0 - 20.0 mg/dL 04/08/2025 9:51 AM EDT [facility] Creatinine 0.69(L) 0.76 - 1.27 mg/dL 04/08/2025 9:51 AM EDT [facility] Sodium 136 136 - 145 mmol/L 04/08/2025 9:51 AM EDT [facility] Potassium 4.6 3.5 - 5.2 mmol/L 04/08/2025 9:51 AM EDT [facility] Chloride 102 98 - 107 mmol/L 04/08/2025 9:51 AM EDT [facility] CO2 23.5 22.0 - 29.0 mmol/L 04/08/2025 9:51 AM EDT [facility] Calcium 8.4(L) 8.6 - 10.5 mg/dL 04/08/2025 9:51 AM EDT [facility] BUN/Creatinine Ratio 19.1 7.0 - 25.0 04/08/2025 9:51 AM EDT [facility] Anion Gap 10.5 5.0 - 15.0 mmol/L 04/08/2025 9:51 AM EDT [facility] eGFR 117.0 >60.0 mL/min/1.7 3 04/08/2025 9:51 AM EDT [facility] Blood Venipuncture / Unknown 04/08/2025 8:41 AM EDT 04/08/2025 9:09 AM EDT Narrative [facility] - 04/08/2025 9:51 AM EDT [...] ORDERABLES Fi nal Result Performing Organization Address City/[facility]/ZIP Co de Phone Number [facility]
[address] [place] [address], * Heparin Anti-Xa (04/08/2025 8:41 AM EDT) Heparin Anti-Xa (UFH) 0.33 0.30 - 0.70 IU/ml 04/08/2025 9:40 AM EDT [facility] Blood Venipuncture / Unknown 04/08/2025 8:41 AM EDT 04/08/2025 9:10 AM EDT us Sushil Dean Jr., MD LAB BLOOD ORDERABLES Fi nal Result [facility]
[address] [place] [address], * FL C Arm During Surgery (04/07/2025 [...] Occasional WBCs seen 04/11/2025 10:40 AM EDT [facility] Gram Stain No organisms seen 04/11/2025 10:40 AM EDT [facility] Swab Structure of right lower limb / Unknown Collection / Unknown 04/07/2025 9:14 PM EDT 04/08/2025 4:36 AM EDT us Sushil Dean Jr., MD MICROBIOLOGY - GENERAL ORDERABLES Final Result Performing Organization Address City/[facility]/ZIP Co de Phone Number [facility]
[address] [place] [address], [facility]
[address] [place] [address], * Anaerobic Culture - Swab, Leg, Right [...] [facility]
[address] [place] [address], * Anaerobic Culture - Tissue, Leg (04/07/2025 9:13 PM EDT) Pathologist [facility] Anaerobic Culture No anaerobes isolated at 5 days ALIZA 04/13/2025 7:21 AM EDT [facility] Tissue Lower limb structure / Unknown Collection / Unknown 04/07/2025 9:13 PM EDT 04/08/2025 4:54 AM EDT Jason Álvarez DO MICROBIOLOGY - GENERAL ORDERABLE S Final Result [facility]
[address] [place] [address], * Tissue / Bone Culture - Tissue, Leg, Right (04/07/2025 9:13 PM EDT) [facility] Tissue Culture No growth at 3 days ALIZA 04/11/2025 10:36 AM EDT [facility] Gram Stain Rare (1+) WBCs seen 04/11/2025 10:36 AM EDT [facility] Gram Stain No organisms seen 04/11/2025 10:36 AM EDT [facility] Tissue Structure of right lower limb / Unknown 04/07/2025 9:13 PM EDT 04/08/2025 4:54 AM EDT Sushil Dean Jr., MD MICROBIOLOGY - GENERAL ORDERABLES Final Result [facility]
[address] [place] [address], [facility]
[address] [place] [address], * (ABNORMAL) Wound Culture - Swab, Leg, Right (04/07/2025 9:07 PM EDT) Pathologist [facility] Wound Culture Light growth (2+) Staphylococcus aureus, MRSA(A) ALIZA 04/10/2025 10:38 AM EDT [facility] Comment: Methicillin resistant Staphylococcus aureus, Patient may be an isolation risk. Gram Stain Few (2+) WBCs seen 04/10/2025 10:38 AM EDT [facility] Gram Stain No organisms seen 10:38 AM EDT [facility] Swab Structure of right lower [...] [facility]
[address] [place] [address], [place] [phone] [facility]
[address] [place] [address], [place] [phone] * Anaerobic Culture - Swab, Leg, Right [...] [facility]
[address] [place] [address], * Heparin Anti-Xa (04/07/2025 9:10 AM EDT) [facility] Heparin Anti-Xa ([facility]) 0.30 0.30 - 0.70 IU/ml 04/07/2025 10:12 AM EDT [facility] Blood Venipuncture / Unknown 04/07/2025 9:10 AM EDT 04/07/2025 9:38 AM EDT Una Perla PharmD LAB BLOOD ORDERABLES Final R esult [facility]
[address] [place] [address], * (ABNORMAL) CBC Auto Differential (04/07/2025 9:10 AM EDT) [facility] WBC 8.63 3.40 - 10.80 10*3/mm3 04/07/2025 9:50 AM EDT [facility] RBC 5.23 4.14 - 5.80 10*6/mm3 04/07/2025 9:50 AM EDT [facility] Hemoglobin 14.7 13.0 - 17.7 g/dL 04/07/2025 9:50 AM EDT [facility] Hematocrit 44.8 37.5 - 51.0 % 04/07/2025 9:50 AM EDT [facility] MCV 85.7 79.0 - 97.0 fL 04/07/2025 9:50 AM EDT [facility] MCH 28.1 26.6 - 33.0 pg 04/07/2025 9:50 AM EDT [facility] MCHC 32.8 31.5 - 35.7 g/dL 04/07/2025 9:50 AM EDT [facility] RDW 12.8 12.3 - 15.4 % 04/07/2025 9:50 AM [facility] RDW-SD 39.9 37.0 - 54.0 fl 04/07/2025 9:50 AM [facility] MPV 10.8 6.0 - 12.0 fL 04/07/2025 9:50 AM [facility] Platelets 149 140 - 450 10*3/mm3 04/07/2025 9:50 AM [facility] Neutrophil % 66.7 42.7 - 76.0 % 04/07/2025 9:50 AM [facility] Lymphocyte % 20.5 19.6 - 45.3 % 04/07/2025 9:50 AM [facility] Monocyte % 9.8 5.0 - 12.0 % 04/07/2025 9:50 AM [facility] Eosinophil % 2.1 0.3 - 6.2 % 04/07/2025 9:50 AM [facility] Basophil % 0.3 0.0 - 1.5 % 04/07/2025 9:50 AM [facility] Immature Grans % 0.6(H) 0.0 - 0.5 % 04/07/2025 9:50 AM [facility] Neutrophils, Absolute 5.75 1.70 - 7.00 10*3/mm3 04/07/2025 9:50 AM [facility] Lymphocytes, Absolute 1.77 0.70 - 3.10 10*3/mm3 04/07/2025 9:50 AM [facility] Monocytes, Absolute 0.85 0.10 - 0.90 10*3/mm3 04/07/2025 9:50 AM [facility] Eosinophils, Absolute 0.18 0.00 - 0.40 10*3/mm3 04/07/2025 9:50 AM [facility] Basophils, Absolute 0.03 0.00 - 0.20 10*3/mm3 04/07/2025 9:50 AM [facility] Immature Grans, Absolute 0.05 0.00 - 0.05 10*3/mm3 04/07/2025 9:50 AM EDT [facility] nRBC 0.0 0.0 - 0.2 /100 WBC 04/07/2025 9:50 AM EDT [facility] Blood Venipuncture / Unknown 04/07/2025 9:10 AM EDT 04/07/2025 9:38 AM EDT Jasonalfonso Álvarez LAB BLOOD ORDERABLES Final Resul t [facility]
[address] [place] [address], * (ABNORMAL) Basic Metabolic Panel (04/07/2025 9:10 AM EDT) Glucose 112(H) 65 - 99 mg/dL 04/07/2025 10:19 AM EDT [facility] BUN 13.1 6.0 - 20.0 mg/dL 04/07/2025 10:19 AM EDT [facility] Creatinine 0.77 0.76 - 1.27 mg/dL 04/07/2025 10:19 AM EDT [facility] Sodium 139 136 - 145 mmol/L 04/07/2025 10:19 AM EDT [facility] Potassium 4.2 3.5 - 5.2 mmol/L 04/07/2025 10:19 AM EDT [facility] Comment:Specimen hemolyzed. Result may be falsely elevated. Chloride 105 98 - 107 mmol/L 04/07/2025 10:19 AM EDT [facility] CO2 24.8 22.0 - 29.0 mmol/L 04/07/2025 10:19 AM EDT [facility] Calcium 8.6 8.6 - 10.5 mg/dL 04/07/2025 10:19 AM EDT [facility] BUN/Creatinine Ratio 17.0 7.0 - 25.0 04/07/2025 10:19 AM EDT [facility] Anion Gap 9.2 5.0 - 15.0 mmol/L 04/07/2025 10:19 AM EDT [facility] eGFR 113.2 >60.0 mL/min/1.7 3 04/07/2025 10:19 AM EDT [facility] Blood Venipuncture / Unknown 04/07/2025 9:10 AM EDT 04/07/2025 9:38 AM EDT Narrative [facility] - 04/07/2025 10:19 AM EDT [...] does not include race as a factor Jasonalfonso Álvarez LAB BLOOD ORDERABLES Final Resul t [facility]
[address] [place] [address], * MRI Tibia Fibula Right With & [...] of osteomyelitis at this time. Electronically Signed: Hguh Buenrostro 04/07/2025 9:58 AM EDT Workstation ID: [id number] Narrative 04/07/2025 9:58 AM EDT MRI TIBIA [...] Buenrostro 04/07/2025 9:58 AM EDT Workstation ID: [id number] Sushil Dean Jr., MD IM MRI ORDERABLES Mary Beth l Result * Heparin Anti-Xa (04/07/2025 1:42 AM EDT) [facility] Heparin Anti-Xa (UFH) 0.38 0.30 - 0.70 IU/ml 04/07/2025 2:14 AM EDT [facility] Blood Venipuncture / Unknown 04/07/2025 1:42 AM EDT 04/07/2025 1:54 AM EDT Chelsie Turpin [facility] LAB BLOOD ORDERABLES Final R esult [facility]
[address] [place] [address], * Heparin Anti-Xa (04/06/2025 7:16 PM EDT) [facility] Heparin Anti-Xa (UFH) 0.33 0.30 - 0.70 IU/ml 04/06/2025 7:50 PM EDT [facility] Blood Venipuncture / Unknown 04/06/2025 7:16 PM EDT 04/06/2025 7:35 PM EDT Cherri Beatty RP LAB BLOOD ORDERABLES Final Res ult Performing Organization Address City/[facility]/ZIP Co de Phone Number [facility]
[address] [place] [address], * Potassium (04/06/2025 7:16 PM EDT) Potassium 4.0 3.5 - 5.2 mmol/L 04/06/2025 7:53 PM EDT [facility] Blood Venipuncture / Unknown 04/06/2025 7:16 PM EDT 04/06/2025 7:35 PM EDT Jason Álvarez DO LAB BLOOD ORDERABLES Final Resul t Performing Organization Address [facility] de Phone Number [facility]
[address] [place] [address], * (ABNORMAL) Heparin Anti-Xa (04/06/2025 12:36 PM EDT) Heparin Anti-Xa (UFH) 0.24(L) 0.30 - 0.70 IU/ml 04/06/2025 1:23 PM EDT [facility] Blood Venipuncture / Unknown 04/06/2025 12:36 PM EDT 04/06/2025 1:07 PM EDT Una LundbergD LAB BLOOD ORDERABLES Final R esult Performing Organization Address [facility] Co de Phone Number [facility]
[address] [place] [address], * (ABNORMAL) Heparin Anti-Xa (04/06/2025 3:42 AM EDT) Heparin Anti-Xa (UFH) 0.25(L) 0.30 - 0.70 IU/ml 04/06/2025 5:30 AM EDT [facility] Blood Venipuncture / Unknown 04/06/2025 3:42 AM EDT 04/06/2025 4:59 AM EDT Chelsie Turpin [facility] LAB BLOOD ORDERABLES Final R esult [facility]
[address] [place] [address], * (ABNORMAL) Basic Metabolic Panel (04/06/2025 3:42 AM EDT) Pathologist [facility] Glucose 94 65 - 99 mg/dL 04/06/2025 5:59 AM EDT [facility] BUN 12.8 6.0 - 20.0 mg/dL 04/06/2025 5:59 AM EDT [facility] Creatinine 0.80 0.76 - 1.27 mg/dL 04/06/2025 5:59 AM EDT [facility] Sodium 138 136 - 145 mmol/L 04/06/2025 5:59 AM EDT [facility] Potassium 3.6 3.5 - 5.2 mmol/L 04/06/2025 5:59 AM EDT [facility] Chloride 103 98 - 107 mmol/L 04/06/2025 5:59 AM EDT [facility] CO2 24.2 22.0 - 29.0 mmol/L 04/06/2025 5:59 AM EDT [facility] Calcium 8.0(L) 8.6 - 10.5 mg/dL 04/06/2025 5:59 AM EDT [facility] BUN/Creatinine Ratio 16.0 7.0 - 25.0 04/06/2025 5:59 AM EDT [facility] Anion Gap 10.8 5.0 - 15.0 mmol/L 04/06/2025 5:59 AM EDT [facility] eGFR 111.9 >60.0 mL/min/1.7 3 04/06/2025 5:59 AM EDT [facility] Blood Venipuncture / Unknown 04/06/2025 3:42 AM EDT 04/06/2025 5:20 AM EDT [facility] - 04/06/2025 5:59 AM EDT GFR [...] DO LAB BLOOD ORDERABLES Final Resul t [facility]
[address] [place] [address], * (ABNORMAL) CBC Auto Differential (04/06/2025 3:41 AM EDT) WBC 10.86(H) 3.40 - 10.80 10*3/mm3 04/06/2025 5:04 AM EDT [facility] RBC 5.08 4.14 - 5.80 10*6/mm3 04/06/2025 5:04 AM EDT [facility] Hemoglobin 13.9 13.0 - 17.7 g/dL 04/06/2025 5:04 AM EDT [facility] Hematocrit 43.7 37.5 - 51.0 % 04/06/2025 5:04 AM EDT [facility] MCV 86.0 79.0 - 97.0 fL 04/06/2025 5:04 AM [facility] MCH 27.4 26.6 - 33.0 pg 04/06/2025 5:04 AM [facility] MCHC 31.8 31.5 - 35.7 g/dL 04/06/2025 5:04 AM [facility] RDW 12.8 12.3 - 15.4 % 04/06/2025 5:04 AM [facility] RDW-SD 40.0 37.0 - 54.0 fl 04/06/2025 5:04 AM [facility] MPV 11.7 6.0 - 12.0 fL 04/06/2025 5:04 AM [facility] Platelets 115(L) 140 - 450 10*3/mm3 04/06/2025 5:04 AM [facility] Neutrophil % 65.3 42.7 - 76.0 % 04/06/2025 5:04 AM [facility] Lymphocyte % 20.5 19.6 - 45.3 % 04/06/2025 5:04 AM [facility] Monocyte % 11.8 5.0 - 12.0 % 04/06/2025 5:04 AM [facility] Eosinophil % 1.8 0.3 - 6.2 % 04/06/2025 5:04 AM [facility] Basophil % 0.3 0.0 - 1.5 % 04/06/2025 5:04 AM [facility] Immature Grans % 0.3 0.0 - 0.5 % 04/06/2025 5:04 AM [facility] Neutrophils, Absolute 7.09(H) 1.70 - 7.00 10*3/mm3 04/06/2025 5:04 AM [facility] Lymphocytes, Absolute 2.23 0.70 - 3.10 10*3/mm3 04/06/2025 5:04 AM [facility] Monocytes, Absolute 1.28(H) 0.10 - 0.90 10*3/mm3 04/06/2025 5:04 AM EDT [facility] Eosinophils, Absolute 0.20 0.00 - 0.40 10*3/mm3 04/06/2025 5:04 AM EDT [facility] Basophils, Absolute 0.03 0.00 - 0.20 10*3/mm3 04/06/2025 5:04 AM EDT [facility] Immature Grans, Absolute 0.03 0.00 - 0.05 10*3/mm3 04/06/2025 5:04 AM EDT [facility] nRBC 0.0 0.0 - 0.2 /100 WBC 04/06/2025 5:04 AM EDT [facility] Blood Venipuncture / Unknown 04/06/2025 3:41 AM EDT 04/06/2025 4:58 AM EDT Jason Álvarez DO LAB BLOOD ORDERABLES Final Resul t Performing Organization Address City/[facility]/ZIP Co de Phone Number [facility]
[address] [place] [address], [place] [phone] * Heparin Anti-Xa (04/05/2025 8:43 PM EDT) [facility] Heparin Anti-Xa (UFH) 0.38 0.30 - 0.70 IU/ml 04/05/2025 9:09 PM EDT [facility] Blood Venipuncture / Unknown 04/05/2025 8:43 PM EDT 04/05/2025 8:55 PM EDT us Cherri Beatty [facility] LAB BLOOD ORDERABLES Final Res ult Performing Organization Address City/[facility]/ZIP Co de Phone Number [facility]
[address] [place] [address], [place] [phone] * CK (04/05/2025 12:15 PM EDT) Pathologist [facility] Creatine Kinase 140 20 - 200 U/L 04/05/2025 1:31 PM EDT [facility] Blood Venipuncture / Unknown 04/05/2025 12:15 PM EDT 04/05/2025 1:03 PM EDT Carlton Mead MD LAB BLOOD ORDERABLES Final R esult Performing Organization Address City/[facility]/ZIP Co de Phone Number [facility]
[address] [place] [address], * (ABNORMAL) Heparin Anti-Xa (04/05/2025 12:15 PM EDT) Heparin Anti-Xa (UFH) 0.17(L) 0.30 - 0.70 IU/ml 04/05/2025 1:21 PM EDT [facility] Blood Venipuncture / Unknown 04/05/2025 12:15 PM EDT 04/05/2025 1:04 PM EDT Una Perla PharmD LAB BLOOD ORDERABLES Final R esult [facility]
[address] [place] [address], * (ABNORMAL) aPTT (04/05/2025 3:54 AM EDT) PTT 35.3(L) 60.0 - 90.0 seconds 04/05/2025 4:31 AM EDT [facility] Blood Venipuncture / Unknown 04/05/2025 3:54 AM EDT 04/05/2025 4:15 AM EDT Narrative [facility] - 04/05/2025 4:31 AM EDT PTT = The equivalent PTT values for the therapeutic range of heparin levels at 0.3 to 0.5 U/ml are 60 to 70 seconds. Una Perla PharmD LAB BLOOD ORDERABLES Final R esult [facility]
[address] [place] [address], * Heparin Anti-Xa (04/05/2025 3:54 AM EDT) Pathologist [facility] Heparin Anti-Xa (UFH) 0.30 0.30 - 0.70 IU/ml 04/05/2025 4:32 AM EDT [facility] Blood Venipuncture / Unknown 04/05/2025 3:54 AM EDT 04/05/2025 4:15 AM EDT Una [employer] InformationD LAB BLOOD ORDERABLES Final R esult Performing Organization Address City/[facility]/ZIP Co de Phone Number [facility]
[address] [place] [address], * (ABNORMAL) CBC Auto Differential (04/05/2025 3:54 AM EDT) Pathologist [facility] WBC 11.18(H) 3.40 - 10.80 10*3/mm3 04/05/2025 4:20 AM EDT [facility] RBC 5.00 4.14 - 5.80 10*6/mm3 04/05/2025 4:20 AM EDT [facility] Hemoglobin 13.9 13.0 - 17.7 g/dL 04/05/2025 4:20 AM EDT [facility] Hematocrit 42.4 37.5 - 51.0 % 04/05/2025 4:20 AM EDT [facility] MCV 84.8 79.0 - 97.0 fL 04/05/2025 4:20 AM EDT [facility] MCH 27.8 26.6 - 33.0 pg 04/05/2025 4:20 AM EDT [facility] MCHC 32.8 31.5 - 35.7 g/dL 04/05/2025 4:20 AM [facility] RDW 12.9 12.3 - 15.4 % 04/05/2025 4:20 AM [facility] RDW-SD 39.7 37.0 - 54.0 fl 04/05/2025 4:20 AM [facility] MPV 10.2 6.0 - 12.0 fL 04/05/2025 4:20 AM [facility] Platelets 160 140 - 450 10*3/mm3 04/05/2025 4:20 AM [facility] Neutrophil % 73.5 42.7 - 76.0 % 04/05/2025 4:20 AM [facility] Lymphocyte % 14.0(L) 19.6 - 45.3 % 04/05/2025 4:20 AM [facility] Monocyte % 11.0 5.0 - 12.0 % 04/05/2025 4:20 AM [facility] Eosinophil % 0.8 0.3 - 6.2 % 04/05/2025 4:20 AM [facility] Basophil % 0.3 0.0 - 1.5 % 04/05/2025 4:20 AM [facility] Immature Grans % 0.4 0.0 - 0.5 % 04/05/2025 4:20 AM [facility] Neutrophils, Absolute 8.23(H) 1.70 - 7.00 10*3/mm3 04/05/2025 4:20 AM [facility] Lymphocytes, Absolute 1.56 0.70 - 3.10 10*3/mm3 04/05/2025 4:20 AM [facility] Monocytes, Absolute 1.23(H) 0.10 - 0.90 10*3/mm3 04/05/2025 4:20 AM [facility] Eosinophils, Absolute 0.09 0.00 - 0.40 10*3/mm3 04/05/2025 4:20 AM [facility] Basophils, Absolute 0.03 0.00 - 0.20 10*3/mm3 04/05/2025 4:20 AM EDT [facility] Immature Grans, Absolute 0.04 0.00 - 0.05 10*3/mm3 04/05/2025 4:20 AM EDT [facility] nRBC 0.0 0.0 - 0.2 /100 WBC 04/05/2025 4:20 AM EDT [facility] Blood Venipuncture / Unknown 04/05/2025 3:54 AM EDT 04/05/2025 4:16 AM EDT Una Perla PharmD LAB BLOOD ORDERABLES Final R esult [facility]
[address] [place] [address], * (ABNORMAL) Basic Metabolic Panel (04/05/2025 3:54 AM EDT) Glucose 152(H) 65 - 99 mg/dL 04/05/2025 4:40 AM EDT [facility] BUN 17.3 6.0 - 20.0 mg/dL 04/05/2025 4:40 AM EDT [facility] Creatinine 0.92 0.76 - 1.27 mg/dL 04/05/2025 4:40 AM EDT [facility] Sodium 136 136 - 145 mmol/L 04/05/2025 4:40 AM EDT [facility] Potassium 3.9 3.5 - 5.2 mmol/L 04/05/2025 4:40 AM EDT [facility] Chloride 103 98 - 107 mmol/L 04/05/2025 4:40 AM EDT [facility] CO2 24.0 22.0 - 29.0 mmol/L 04/05/2025 4:40 AM EDT [facility] Calcium 7.8(L) 8.6 - 10.5 mg/dL 04/05/2025 4:40 AM EDT [facility] BUN/Creatinine Ratio 18.8 7.0 - 25.0 04/05/2025 4:40 AM EDT [facility] Anion Gap 9.0 5.0 - 15.0 mmol/L 04/05/2025 4:40 AM EDT [facility] eGFR 105.2 >60.0 mL/min/1.7 3 04/05/2025 4:40 AM EDT [facility] Blood Venipuncture / Unknown 04/05/2025 [...] MD LAB BLOOD ORDERABLES Final Re sult [facility]
[address] [place] [address], * (ABNORMAL) aPTT (04/05/2025 12:18 AM EDT) PTT 33.6(L) 60.0 - 90.0 seconds 04/05/2025 12:53 AM EDT [facility] Blood Venipuncture / Unknown 04/05/2025 12:18 AM EDT 04/05/2025 12:37 AM EDT [facility] - 04/05/2025 12:53 AM EDT PTT = The equivalent PTT values for the therapeutic range of heparin levels at 0.3 to 0.5 U/ml are 60 to 70 seconds. [employer] PharmD LAB BLOOD ORDERABLES Final R esult Performing Organization Address City/[facility]/ZIP Co de Phone Number [facility]
[address] [place] [address], * (ABNORMAL) Protime-INR (04/05/2025 12:18 AM EDT) Protime 15.9(H) 12.2 - 15.3 Seconds 04/05/2025 12:53 AM EDT [facility] INR 1.19(H) 0.89 - 1.12 04/05/2025 12:53 AM EDT [facility] Blood Venipuncture / Unknown 04/05/2025 12:18 AM EDT 04/05/2025 12:37 AM EDT [employer] LAB BLOOD ORDERABLES Final R esult Performing Organization Address [facility] Co de Phone Number [facility]
[address] [place] [address], * Heparin Anti-Xa (04/05/2025 12:18 AM EDT) Pathologist [facility] Heparin Anti-Xa (UFH) 0.39 0.30 - 0.70 IU/ml 04/05/2025 12:54 AM EDT [facility] Blood Venipuncture / Unknown 04/05/2025 12:18 AM EDT 04/05/2025 12:37 AM EDT [employer] LAB BLOOD ORDERABLES Final R esult Performing Organization Address City/[facility]/ZIP Co de Phone Number [facility]
[address] [place] [address], * MRI Tibia Fibula Right With & [...] MD 04/04/2025 11:00 PM EDT Workstation ID: [id number] Narrative 04/04/2025 11:00 PM EDT MRI TIBIA [...] MD 04/04/2025 11:00 PM EDT Workstation ID: [id number] Leonora Shepherd MD IMG MRI ORDERABLES Final Resu lt * POC Creatinine (04/04/2025 2:49 PM EDT) Creatinine 1.10 0.60 - 1.30 mg/dL 04/07/2025 7:14 PM EDT [facility] Comment:Serial Number: [id number]: [id number] Venous Blood 04/04/2025 2:49 PM EDT 04/07/2025 7:14 PM EDT Jason Álvarez DO POINT OF CARE TEST ORDERABLES Fi nal Result [facility]
[address] [place] [address], * (ABNORMAL) CBC Auto Differential (04/04/2025 2:47 PM EDT) [facility] WBC 12.72(H) 3.40 - 10.80 10*3/mm3 04/04/2025 2:56 PM EDT [facility] RBC 5.64 4.14 - 5.80 10*6/mm3 04/04/2025 2:56 PM EDT [facility] Hemoglobin 15.3 13.0 - 17.7 g/dL 04/04/2025 2:56 PM EDT [facility] Hematocrit 47.9 37.5 - 51.0 % 04/04/2025 2:56 PM EDT [facility] MCV 84.9 79.0 - 97.0 fL 04/04/2025 2:56 PM EDT [facility] MCH 27.1 26.6 - 33.0 pg 04/04/2025 2:56 PM EDT [facility] MCHC 31.9 31.5 - 35.7 g/dL 04/04/2025 2:56 PM EDT [facility] RDW 13.1 12.3 - 15.4 % 04/04/2025 2:56 PM EDT [facility] RDW-SD 40.3 37.0 - 54.0 fl 04/04/2025 2:56 PM EDT [facility] MPV 9.4 6.0 - 12.0 fL 04/04/2025 2:56 PM EDT [facility] Platelets 232 140 - 450 10*3/mm3 04/04/2025 2:56 PM EDT [facility] Neutrophil % 74.9 42.7 - 76.0 % 04/04/2025 2:56 PM EDT [facility] Lymphocyte % 13.1(L) 19.6 - 45.3 % 04/04/2025 2:56 PM EDT [facility] Monocyte % 11.2 5.0 - 12.0 % 04/04/2025 2:56 PM EDT [facility] Eosinophil % 0.4 0.3 - 6.2 % 04/04/2025 2:56 PM EDT [facility] Basophil % 0.2 0.0 - 1.5 % 04/04/2025 2:56 PM EDT [facility] Immature Grans % 0.2 0.0 - 0.5 % 04/04/2025 2:56 PM EDT [facility] Neutrophils, Absolute 9.52(H) 1.70 - 7.00 10*3/mm3 04/04/2025 2:56 PM EDT [facility] Lymphocytes, Absolute 1.66 0.70 - 3.10 10*3/mm3 04/04/2025 2:56 PM EDT [facility] Monocytes, Absolute 1.43(H) 0.10 - 0.90 10*3/mm3 04/04/2025 2:56 PM EDT [facility] Eosinophils, Absolute 0.05 0.00 - 0.40 10*3/mm3 04/04/2025 2:56 PM EDT [facility] Basophils, Absolute 0.03 0.00 - 0.20 10*3/mm3 04/04/2025 2:56 PM EDT [facility] Immature Grans, Absolute 0.03 0.00 - 0.05 10*3/mm3 04/04/2025 2:56 PM EDT [facility] nRBC 0.0 0.0 - 0.2 /100 WBC 04/04/2025 2:56 PM EDT [facility] Blood Venipuncture / Unknown 04/04/2025 2:47 PM EDT 04/04/2025 2:52 PM EDT us Mario Crowley DO LAB BLOOD ORDERABLES Fin al Result [facility]
[address] [place] [address], * (ABNORMAL) C-reactive Protein (04/04/2025 2:47 PM EDT) C-Reactive Protein 8.57(H) 0.00 - 0.50 mg/dL 04/04/2025 3:26 PM EDT [facility] Blood Venipuncture / Unknown 04/04/2025 2:47 PM EDT 04/04/2025 2:52 PM EDT [facility]AB[facility] Fin al Result Performing Organization Address City/[facility]/ZIP Co de Phone Number [facility]
[address] [place] [address], * (ABNORMAL) Sedimentation Rate (04/04/2025 2:47 PM EDT) Pathologist [facility] Sed Rate 51(H) 0 - 15 mm/hr 04/04/2025 3:06 PM EDT [facility] Blood Venipuncture / Unknown 04/04/2025 2:47 PM EDT 04/04/2025 2:52 PM EDT [facility] LAB BLOOD ORDERABLES Fin al Result Performing Organization Address City/[facility] Co de Phone Number [facility]
[address] [place] [address], * Comprehensive Metabolic Panel (04/04/2025 2:47 PM EDT) Pathologist [facility] Glucose 90 65 - 99 mg/dL 04/04/2025 3:26 PM EDT [facility] BUN 18.3 6.0 - 20.0 mg/dL 04/04/2025 3:26 PM EDT [facility] Creatinine 0.94 0.76 - 1.27 mg/dL 04/04/2025 3:26 PM EDT [facility] Sodium 136 136 - 145 mmol/L 04/04/2025 3:26 PM EDT [facility] Potassium 3.8 3.5 - 5.2 mmol/L 04/04/2025 3:26 PM EDT [facility] Chloride 100 98 - 107 mmol/L 04/04/2025 3:26 PM EDT [facility] CO2 25.3 22.0 - 29.0 mmol/L 04/04/2025 3:26 PM EDT [facility] Calcium 8.6 8.6 - 10.5 mg/dL 04/04/2025 3:26 PM T [facility] Total Protein 7.3 6.0 - 8.5 g/dL 04/04/2025 3:26 PM EDT [facility] Albumin 4.1 3.5 - 5.2 g/dL 04/04/2025 3:26 PM T [facility] ALT (SGPT) 26 1 - 41 U/L 04/04/2025 3:26 PM [facility] AST (SGOT) 25 1 - 40 U/L 04/04/2025 3:26 PM T [facility] Alkaline Phosphatase 106 39 - 117 U/L 04/04/2025 3:26 PM T [facility] Total Bilirubin 1.0 0.0 - 1.2 mg/dL 04/04/2025 3:26 PM T [facility] Globulin 3.2 gm/dL 04/04/2025 3:26 PM [facility] Comment:Calculated Result A/G Ratio 1.3 g/dL 04/04/2025 3:26 PM [facility] BUN/Creatinine Ratio 19.5 7.0 - 25.0 04/04/2025 3:26 PM [facility] Anion Gap 10.7 5.0 - 15.0 mmol/L 04/04/2025 3:26 PM [facility] eGFR 102.5 >60.0 mL/min/1.7 3 04/04/2025 3:26 PM [facility] Blood Venipuncture / Unknown 04/04/2025 2:47 PM EDT 04/04/2025 2:52 PM EDT [facility] - 04/04/2025 3:26 PM EDT GFR [...] DO LAB BLOOD ORDERABLES Fin al Result [facility]
[address] [place] [address], documented in this encounter Visit Diagnoses Diagnosis [...] mL/hr, As Needed, Line Care, Starting on 04/09/25 at 1310, Following administration of an IV [...] anticoagulation 1111 (Given - Provider: Shirley Hart RN)203 (Given - Provider: Alberto Dillon RN) 1001 (Given - Provider: Marguerite Wakefield RN) atorvastatin (LIPITOR) tablet 40 mg 40 mg, [...] Salazar, KELL)1943 (Given - Provider: Anahy Marcelino, ADMINISTRATIVE SERVICES MANAGER)2129 (Canceled Entry - Provider: Anahy Marcelino ADMINISTRATIVE SERVICES MANAGER - Comment: previously given) 0837 (Given - [...] RN)2026 (Given - Provider: Alberto Dillon RN) DAPTOmycin [...] 0907 (Given - Provider: Shirley Hart RN) 905 (Given - Provider: Shirley Hart RN) 100 (Given - Provider: Marguerite Wakefield, RN) hydroCHLOROthiazide tablet 12.5 mg 12.5 mg, Oral, Daily, First dose on Mon04/05/25 at 0900, Caution: Look alike/sound alike drug alert 0906 (Given - Provider: Shirley Hart RN) 0906 (Given - Provider: Shirley Hart, RN) 1001 (Given - Provider: Marguerite Wakefield, RN) ketorolac [...] Alberto Dillon RN) 100 (Given - Provider: Margeurite Wakefield, RN) sertraline (ZOLOFT) tablet 100 mg 100 mg, Oral, Nightly, First dose on Mon04/04/25 at 2330 2026 (Given - Provider: Alberto Dillon, LU) 2030 (Given - Provider: Alberto Dillon RN) sodium chloride 0.9 % flush 10 mL 10 mL, Intravenous, Every 12 Hours Scheduled, First dose on Mon04/04/25 at 2100 1007 (Given - Provider: Shirley Hart, LU)2026 (Given - Provider: Alberto Dillon RN) 0907 [...] Continuous Medication Order 04/09/2025 04/10/2025 04/11/2025 heparin 90710 units/250 mL (100 units/mL) in 0.45 % [...] (Not Given: See Alt - Provider: Shirley Hatr, LU)1508 (Not Given: See Alt - Provider: [...] documented as of this encounter Care Teams Fruit Room Hand Relationship Specialty Start Date End Date Provider, [place] [address] PCP - General 05/09/23 documented as of this encounter
--- OUTSIDE RECORDS SUMMARY | 2025-04-07 19:36 | XMS_ITS | Encounter Summary ---
Author Organization [facility] Address [address] [place] [address] Care Team Providers Care Housekeeper/Laundry Assistant Name Role Phone Provider, No Known Primary Care Provider Unavail able Reason for Visit * Auth/Cert Specialty Diagnoses / Procedures Referred By Bulmaro muniz Referred To Contact Diagnoses Right BKA infection Referral ID Status Reason Start Date Expiration Date Visits Re quested Visits Authorized [id number] 1 1 Encounter Details Date Type Department Care Team (Late st Contact Info) Description 04/07/2025 8:36 PM EDT Anesthesia Event [facility] OR [address] [place] [address] Luci Alonso DO [address] [place] [address] Anesthesia Record Procedure Summary Procedure Name Responsible [...] 0.6 oz pur e alcohol) [facility] Utilities Answer Date Recorded In the past 12 months has [employer], gas, oil, or water [employer] threatened to shut off services in your [...] or training? Not on file Preferred Language Nigerien 04/07/2025 Sex and Gender Information Value Date [...] PACU on O2NC, breathing comfortably. Report to CRIB PAD MAKER at bedside. VSS. * Anesthesia Procedure Notes [...] Musculoskeletal Abdominal Substance History - negative use INTERVENTION NURSE Other ROS/Med Hx Other: Eliquis 04/04/25 Hgb 14.7 k 43.2 Factor 2 on eliquis +gerd Anesthesia Plan ASA 3 - emergent general Rapid sequence (Risks and benefits of general anesthesia discussed with patient (including [place], CVA, , recall,aspiration, oropharyngeal/dental damage), questions answered, agreeable to proceed. ) intravenous induction Anesthetic plan, risks, benefits, and alternatives have been provided, discussed and informed consent has been obtained with: patient. Plan discussed with EMU FARM WORKER. CODE STATUS: Code Status (Patient has no [...] documented as of this encounter Care Teams Housekeeper/Laundry Assistant Relationship Specialty Start Date End Date Provider, No Known [facility] [place] [address] PCP - General 05/09/23 documented as of this encounter
--- OUTSIDE RECORDS SUMMARY | 2025-04-08 13:45 | XMS_ITS | Encounter Summary ---
[facility] Address [address] [place] [address] Care Team Providers Care Wet Cotton Feeder Name Role Phone Provider, No Known Primary Care Provider Unavail able Reason for Visit * Reason Comments Leg Swelling * Auth/Cert Specialty Diagnoses / Procedures Referred By Contac t Referred To Contact Diagnoses Right BKA infection Referral ID Status Reason Start Date Expiration Date Visits Re quested Visits Authorized [id number] 1 1 Encounter Details Date Type Department Care Team (Late st Contact Info) Description 04/08/2025 2:45 PM EDT - 04/08/2025 4:04 PM EDT Surgery [facility] [address] [place] [address] Sushil Dean Jr., MD [address] [place] [address] [address] [phone] LEG DEBRIDEMENT AND IRRIGATION Social History Tobacco Use Types Packs/Day Years Used Date Smoking Tobacco: Never Smokeless Tobacco: Never Tobacco Cessation:Counseling Given: Not Answered Alcohol Use Standard Drinks/Week Comments Not Currently 0 (1 standard drink = 0.6 oz pur e alcohol) [facility] Utilities Answer Date Recorded In the past 12 months has [employer] electric, gas, oil, or water company threatened [...] or training? Not on file Preferred Language Swedish 04/07/2025 Sex and Gender Information Value Date [...] 2:25 PM EDT Cherri Grimm RN * [place] Suicide Severity Rating Scale (Screener/Recent Self-Report) Question [...] original note were not included. [facility] DISCHARGE SUMMARY Patient Name: [...] Date/Time Wound Culture - Swab, Leg, Right [[id number]] (Abnormal) (Susceptibility) Collected: 04/07/252106 Lab Status: Final [...] Units Date/Time FL C Arm During Surgery [[id number]] Resulted: 04/07/252137 Updated: 04/07/252137 Narrative: This procedure was auto-finalized with no dictation required. MRI Tibia Fibula Right With & Without Contrast [[id number]] Collected: 04/07/25 0938 Updated: 04/07/25 1001 Narrative: [...] Buenrostro 04/07/2025 9:58 AM EDT Workstation ID: [id number] MRI Tibia Fibula Right With & Without Contrast [[id number]] Collected: 04/04/252256 Updated: 04/04/252302 Narrative: MRI TIBIA [...] represent a small area of phlegmonous change ([id number] image 10) measuring approximately 1.6 cm which [...] MD 04/04/2025 11:00 PM EDT Workstation ID: [id number] Pending Labs Order Current Status Fungus Culture [...] Male) Date of 1980 Social Security Number [id number] [place] [address] [place] [address] Evangelical Unknown Marital Status Unknown Admission Date 04/04/2025 Admission Type Emergency Admitting Provider Jadyn Richardson DO Attending Provider Jadyn Richardson DO Department, Room/Bed [facility] 5G, S565/1 Discharge Date Discharge Disposition Discharge Destination Attending Provider: Jadyn Richardson DO Allergies: Ceftin [Cefuroxime], Keflex [Cephalexin], Latex Isolation: None Infection: MRSA (05/11/23) Code Status: CPR Ht: 180.3 cm (71 ) Wt: 134 kg (295 lb) Admission Cmt: None 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 Insurance as of 04/04/2025 Primary Coverage Payor Plan Insurance Group Employer/Plan Group [place] [id number] Payor Plan Address Payor Plan Phone Number Payor Plan Fax Number Effective Dates [employer] [address] [address] 08/10/2023 - None Entered Formerly [facility] [id number] Subscriber Name Subscriber Date Member ID WON DENNIS 1980 [id number] Emergency Contacts Communications Tower Technician (Rel.) Home Phone Work Phone Mobile Phone Avril Dennis (Spouse) -- -- [phone] Robert Hackett (Relative) -- -- [phone] [facility] 5G [address] 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 Outpatient intravenous antibiotic therapy: Daptomycin 800 mg IV daily to be supplied by [facility] 2. Home health to perform [...] INFECTIOUS DISEASE Progress Note Won Dennis 1980 [id number] Date of Consult: 04/10/2025 Admission Date: 04/04/2025 [...] prompted him to seek treatment at [facility]. He is known to Dr. [...] CLOSURE; Surgeon: Sushil Dean Jr., MD; Location: [facility]; Service: Orthopedics; Laterality: Right; WOUND CLOSURE [...] Jr., MD, 20 mg at 04/09/25906 heparin 23158 units/250 mL (100 units/mL) in 0.45 % [...] vancomycin 2750 mg/500 mL 0.9% NS IVPB ([facility]) Ordering Provider: Mario Crowley, DO 20 mg/kg [...] Units Date/Time FL C Arm During Surgery [[id number]] Resulted: 04/07/252137 Updated: 04/07/252137 Narrative: This procedure was auto-finalized with no dictation required. MRI Tibia Fibula Right With & Without Contrast [[id number]] Collected: 04/07/2538 Updated: 04/07/25 1001 Narrative: MRI [...] Buenrostro 04/07/2025 9:58 AM EDT Workstation ID: [id number] Impression: Recurrent Right BKA stump abscess/cellulitis- this [...] discussed his disposition with the pharmacist at [facility] today. I will sign off Outpatient orders: 1. Outpatient intravenous antibiotic therapy: Daptomycin 800 mg IV daily to be supplied by [facility] 2. Home health to perform [...] Date/Time Wound Culture - Swab, Leg, Right [[id number]] (Abnormal) (Susceptibility) Collected: 04/07/252106 Lab Status: Final [...] Row Name 04/06/25 1143 Sit-Stand Transfer Sit-Stand [place] (Transfers) modified independence - Comment, (Sit-Stand Transfer) Pt stood from recliner. Not holding onto walker, pt able to pull his pants up while balancing on his one leg. -LM Row Name 04/06/25 1143 Gait/Stairs (Locomotion) [place] Level (Gait) modified independence - Distance in [...] Motion bilateral lower extremity ROM WFL -LM [facility] Name 04/06/25 1145 Strength Comprehensive (MMT) General Manual Muscle Testing (MMT) Assessment no strength deficits identified BLEs -LM [facility] Name 04/06/25 1145 Balance Balance [...] home at d/c. PT signing off. -LM [facility] Name 04/06/25 1146 Therapy Assessment/Plan (PT) Criteria for Skilled Interventions Met (PT) no;no problems identified which require skilled intervention -LM Therapy Frequency (PT) evaluation only -LM Predicted Duration of Therapy Intervention (PT) Eval Only -LM [facility] Name 04/06/25 1146 Vital Signs Pretreatment Heart Rate (beats/min) 86 -LM Posttreatment Heart Rate (beats/min) 96 -LM Pre SpO2 (%) 95 -LM O2 Delivery Pre Treatment room air -LM Post SpO2 (%) 96 -LM O2 Delivery Post Treatment room air -LM Pre Patient Position Sitting -LM Post Patient Position Sitting -LM [facility] Name 04/06/25 1146 Positioning and [...] Nurse Physical Therapy Education Title: PT OT FOOTWEAR SALES REPRESENTATIVE Therapies (Done) Topic: Physical Therapy (Done) Point: Mobility training (Done) Learning Progress Summary Patient Acceptance, E, VU,DU by at 04/06/2025 1147 Point: Precautions (Done) Learning Progress Summary Patient Acceptance, E, VU,DU by at 04/06/2025 1147 User Cabrera Initials Effective Dates Name Provider Type [facility] 01/24/25 - Susan Cavazos, PT Physical [...] Description Service Date Service Provider Modifiers Qty [id number] PT EVAL LOW COMPLEXITY 3 04/06/2025 Susan [...] mg Daily 04/05/2025 -- Route: Oral heparin 05762 units/250 mL (100 units/mL) in 0.45 % [...] 22 [facility] [address], [address] [facility]ly [facility], [address] Please schedule at [phone] VONDA Garcia 04/11/25 08:32 EDT Cosigned by Sushil Dean Jr., MD at 04/19/2025 10:33 AM EDT Associated attestation - Sushil Dean Jr., MD - 04/19/2025 10:33 AM EDT I have reviewed this documentation and agree. * Rosario Hill APRN - 04/10/2025 1:24 PM EDT Images from the original note were not included. [facility] Services PROGRESS NOTE Patient [...] Date/Time Wound Culture - Swab, Leg, Right [[id number]] (Abnormal) (Susceptibility) Collected: 04/07/252106 Lab Status: Final [...] mg Daily 04/05/2025 -- Route: Oral heparin 12284 units/250 mL (100 units/mL) in 0.45 % [...] 22 [facility] [address] [facility], [address] [facility], [address] Please schedule at [phone] VONDA Garcia 04/10/25 09:01 EDT Cosigned by Sushil Dean Jr., MD at 04/19/2025 10:33 AM EDT Associated attestation - Sushil Dean Jr., MD - 04/19/2025 10:33 AM EDT I have reviewed this documentation and agree. * Carlton Mead MD - 04/10/2025 7:38 AM EDT Images from the original note were not included. INFECTIOUS DISEASE Progress Note Won Dennis 1980 [id number] Date of Consult: 04/10/2025 Admission Date: 04/04/2025 [...] prompted him to seek treatment at [facility]. He is known to Dr. [...] IRRIGATION; Surgeon: Sushil Dean Jr., MD; Location: [facility]; Service: Orthopedics; Laterality: Right; PLACEMENT OF WOUND VAC Right 04/07/2025 Procedure: WOUND VACUUM ASSISTED CLOSURE; Surgeon: uSshil Dean Jr., MD; Location: [facility]; Service: Orthopedics; Laterality: Right; WOUND CLOSURE [...] Jr., MD, 20 mg at 04/09/25906 heparin 33333 units/250 mL (100 units/mL) in 0.45 % [...] Units Date/Time FL C Arm During Surgery [[id number]] Resulted: 04/07/252137 Updated: 04/07/252137 Narrative: This procedure was auto-finalized with no dictation required. MRI Tibia Fibula Right With & Without Contrast [[id number]] Collected: 04/07/25937 Updated: 04/07/25 100 Narrative: MRI [...] Buenrostro 04/07/2025 9:58 AM EDT Workstation ID: [id number] Impression: Recurrent Right BKA stump abscess/cellulitis- this [...] discussed his disposition with the pharmacist at [facility] today. I will sign off Outpatient orders: 1. Outpatient intravenous antibiotic therapy: Daptomycin 800 mg IV daily to be supplied by [facility] 2. Home health to perform [...] MD 04/10/2025 07:38 EDT * Larisa Hamilton [facility] - 04/10/2025 7:17 AM [...] original note were not included. [facility] Services PROGRESS NOTE Patient [...] Date/Time Wound Culture - Swab, Leg, Right [[id number]] (Abnormal) Collected: 04/07/252106 Lab Status: Preliminary result [...] Jason Álvarez DO 04/09/25 * Larisa Hamilton [facility] [...] -- Admin Instructions: Open Order & Select [facility] Electrolyte Replacement Protocol Algorithm to View Details [...] mg Daily 04/05/2025 -- Route: Oral heparin 77033 units/250 mL (100 units/mL) in 0.45 % [...] -- Admin Instructions: Open Order & Select [facility] Electrolyte Replacement Protocol Algorithm to View Details [...] radiographs [facility] [address] [facility], [address] [facility], [address] Please schedule at [phone] VONDA Garcia 04/09/25 09:18 EDT Cosigned by Sushil Dean Jr., MD at 04/19/2025 10:33 AM EDT Associated attestation - Sushil Dean Jr., MD - 04/19/2025 10:33 AM EDT I have reviewed this documentation and agree. * Carlton Mead MD - 04/09/2025 8:25 AM EDT Images from the original note were not included. INFECTIOUS DISEASE Progress Note Won Dennis 1980 [id number] Date of Consult: 04/09/2025 Admission Date: 04/04/2025 [...] prompted him to seek treatment at [facility]. He is known to Dr. [...] MD; Location: [facility]; Service: Orthopedics; Laterality: Right; PLACEMENT OF WOUND [...] MD, 20 mg at 04/08/25 0800 heparin 96522 units/250 mL (100 units/mL) in 0.45 % [...] Q5 Min PRN, Bneito Dean Jr., MD nitroglycerin (NITROSTAT) SL tablet [...] Units Date/Time FL C Arm During Surgery [[id number]] Resulted: 04/07/252137 Updated: 04/07/252137 Narrative: This procedure was auto-finalized with no dictation required. MRI Tibia Fibula Right With & Without Contrast [[id number]] Collected: 04/07/25 0938 Updated: 04/07/25 1001 Narrative: [...] Chitra 04/07/2025 9:58 AM EDT Workstation ID: [id number] Impression: Recurrent Right BKA stump abscess/cellulitis- this [...] mg IV daily to be supplied by [facility] 2. Home health to perform [...] original note were not included. [facility] PROGRESS NOTE Patient [...] Buenrostro 04/07/2025 9:58 AM EDT Workstation ID: [id number] I have personally reviewed the therapy plans: [...] Jason Álvarez, DO 04/08/25 * Hamilton, Larisa, [facility] - 04/08/2025 11:48 AM [...] -- Admin Instructions: Open Order & Select [facility] Electrolyte Replacement Protocol Algorithm to View Details [...] mg Daily 04/05/2025 -- Route: Oral heparin 60571 units/250 mL (100 units/mL) in 0.45 % [...] INFECTIOUS DISEASE Progress Note Won Dennis 1980 [id number] Date of Consult: 04/08/2025 Admission Date: 04/04/2025 [...] prompted him to seek treatment at [facility]. He is known to Dr. [...] Oral, Q6H PRN, 500 mg at 04/06/25 0524 OR acetaminophen (TYLENOL) 160 MG/5ML oral solution [...] Jr., MD, 20 mg at 04/07/25950 heparin 21721 units/250 mL (100 units/mL) in 0.45 % [...] vancomycin 2750 mg/500 mL 0.9% NS IVPB ([facility]) Ordering Provider: Mario Crowley, DO 20 mg/kg [...] Units Date/Time FL C Arm During Surgery [[id number]] Resulted: 04/07/252137 Updated: 04/07/252137 Narrative: This procedure was auto-finalized with no dictation required. MRI Tibia Fibula Right With & Without Contrast [[id number]] Collected: 04/07/25 0938 Updated: 04/07/25 1001 Narrative: [...] Buenrostro 04/07/2025 9:58 AM EDT Workstation ID: [id number] Impression: Right BKA stump cellulitis- s/p BKA with multiple surgical interventions with Known MRSA 05/09/2025. (Treated by ID in [place] Dr. Harris). Dr. Torres treated him with [...] original note were not included. [facility] Services PROGRESS NOTE Patient [...] Buenrostro 04/07/2025 9:58 AM EDT Workstation ID: [id number] I have personally reviewed the therapy plans: [...] Jason DO Preeti 04/07/25 * Larisa Hamilton, [facility] - 04/07/2025 11:56 AM [...] INFECTIOUS DISEASE Progress Note Won Dennis 1980 [id number] Date of Consult: 04/07/2025 Admission Date: 04/04/2025 [...] prompted him to seek treatment at [facility]. He is known to Dr. [...] MD, 20 mg at 04/06/25 0900 heparin 47879 units/250 mL (100 units/mL) in 0.45 % [...] With & Without Contrast - In process [[id number]] Resulted: 04/07/25828 Updated: 04/07/25828 This result has not been signed. Information might be incomplete. MRI Tibia Fibula Right With & Without Contrast [[id number]] Collected: 04/04/252256 Updated: 04/04/253 Narrative: MRI TIBIA [...] represent a small area of phlegmonous change ([id number] image 10) measuring approximately 1.6 cm which [...] MD 04/04/2025 11:00 PM EDT Workstation ID: [id number] Impression: Right BKA stump cellulitis- s/p BKA with multiple surgical interventions with Known MRSA 05/09/2025. (Treated by ID in [place] Dr. Harris). Dr. Torres treated him with [...] -- Admin Instructions: Open Order & Select [facility] Electrolyte Replacement Protocol Algorithm to View Details [...] mg Daily 04/05/2025 -- Route: Oral heparin 56743 units/250 mL (100 units/mL) in 0.45 % [...] -- Admin Instructions: Open Order & Select [facility] Electrolyte Replacement Protocol Algorithm to View Details [...] original note were not included. [facility] PROGRESS NOTE Patient [...] MD 04/04/2025 11:00 PM EDT Workstation ID: [id number] I have personally reviewed the therapy plans: [...] mg Daily 04/05/2025 -- Route: Oral heparin 36996 units/250 mL (100 units/mL) in 0.45 % [...] -- Admin Instructions: Open Order & Select [facility] Electrolyte Replacement Protocol Algorithm to View Details [...] -- Admin Instructions: Open Order & Select [facility] Electrolyte Replacement Protocol Algorithm to View Details [...] INFECTIOUS DISEASE follow up. Won Dennis 1980 [id number] Date of Consult: 04/06/2025 Admission Date: 04/04/2025 [...] prompted him to seek treatment at [facility]. He is known to Dr. [...] MD, 20 mg at 04/06/25 0900 heparin 30066 units/250 mL (100 units/mL) in 0.45 % [...] Tibia Fibula Right With & Without Contrast [[id number]] Collected: 04/04/252256 Updated: 04/04/252302 Narrative: MRI TIBIA [...] represent a small area of phlegmonous change ([id number] image 10) measuring approximately 1.6 cm which [...] MD 04/04/2025 11:00 PM EDT Workstation ID: [id number] Impression: Right BKA stump cellulitis- s/p BKA with multiple surgical interventions with Known MRSA 05/09/2025. (Treated by ID in [place] Dr. Harris). Dr. Torres treated him with [...] original note were not included. [facility] PROGRESS NOTE Patient [...] MD 04/04/2025 11:00 PM EDT Workstation ID: [id number] I have personally reviewed the therapy plans: [...] original note were not included. [facility] HISTORY AND PHYSICAL Patient [...] MD 04/04/2025 11:00 PM EDT Workstation ID: [id number] Assessment & Plan Assessment & Plan Won [...] PICC placed by Rhoda Bonner RN [facility], tip verified by 3CG see LDA. 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 male admitted to 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 He [...] was evaluated in the emergency department in [place], was discharged with instructions for follow-up. He [...] 04/03/2025 Morning Lactobacillus-Inulin ([facility]) capsule Take 200 mg by mouth Daily. [...] MD 04/04/2025 11:00 PM EDT Workstation ID: [id number] Assessment: Right BKA infection 44-year-old male with [...] DISEASE CONSULT/INITIAL HOSPITAL VISIT Won Dennis 1980 [id number] Date of Consult: 04/05/2025 Admission Date: 04/04/2025 [...] prompted him to seek treatment at [facility]. He is known to Dr. [...] Leonora Shepherd MD, 40 mg at 04/04/25 4319 sennosides-docusate (PERICOLACE) 8.6-50 MG per tablet 2 [...] MD, 20 mg at 04/05/25 09 heparin 63158 units/250 mL (100 units/mL) in 0.45 % [...] Leonora Shepherd MD, 10 mg at 04/04/25 4608 Pharmacy to Dose Heparin, , Not Applicable, [...] flush 10 mL, 10 mL, Intravenous, PRN, Lenoora Shepherd MD sodium chloride 0.9 % infusion [...] Pharmacy to dose vancomycin Ordering Provider: Leonora Shepehrd MD Not Applicable Continuous PRN 04/04/25200404/09/25200304/04/25 194 [...] Tibia Fibula Right With & Without Contrast [[id number]] Collected: 04/04/252256 Updated: 04/04/252302 Narrative: MRI TIBIA [...] represent a small area of phlegmonous change (piamqi09 image 10) measuring approximately 1.6 cm which [...] MD 04/04/2025 11:00 PM EDT Workstation ID: [id number] Impression: Right BKA stump cellulitis- s/p BKA with multiple surgical interventions with Known MRSA 05/09/2025. (Treated by ID in [place] Dr. Harris). Dr. Torres treated him with [...] Jr., MD - 04/08/2025 3:51 PM EDT [facility] OPERATIVE REPORT PATIENT NAME: Won Dennis DATE OF : 1980 PREOP DIAGNOSIS: Right Right below-knee amputation infection POSTOP DIAGNOSIS: Same. PROCEDURE: Right Right 48007: Secondary closure below-knee amputation SURGEON: Sushil Dean MD OPERATIVE TEAM: Cold Rolling Machine Setter: Susi Grullon RN Scrub Person: Mary Paredes Scrub Person Extra: Hortencia Toribio Other: Katt Gotti RN; Charis Neville RN ANESTHETIST: Anesthesiologist: Ulises Hoffman MD PARTNER MANAGEMENT CONSULTANT: Stan Casillas CRNA Student Nurse Aging Department Supervisor: Karol Albert SRNA ANESTHESIA: Choice ESTIMATED [...] CULTURE (Canceled) Sushil Dean Jr., MD 04/08/25 4326 Description: RIGHT LEG DEEP WOUND FOR CULTURE [...] PM EDT [facility], [place] [address] OPERATIVE REPORT PATIENT NAME: Won Dennis DATE OF : 1980 PREOP DIAGNOSIS: Right Right below knee amputation stump infection POSTOP DIAGNOSIS: Same. PROCEDURE: Right Right 29510: Incision and drainage of surgical site infection 10223: Debridement of skin, subcutaneous tissue, muscle 04307: Wound vacuum-assisted closure SURGEON: Sushil Dean MD OPERATIVE TEAM: Cold Rolling Machine Setter: Anum Sanchez RN Scrub Person: Hortencia Toribio; Gerald Ivey VP AD PRODUCTS AND PLANNING: Anesthesiologist: Luci Alonso DO ANESTHESIA: General ESTIMATED [...] swellling of the area. seen at [facility] yesterday for CT and US, [...] which was completed with his specialist Dr. eDan. Is been following with him over the [...] this chart in the absence of a professor of political science. No orders to display RADIOLOGY: [x] Radiologist's [...] to get IV ABX at home with [facility]; however, Medicaid lapsed on 04/08. DEBRA was unaware until this morning that Medicaid has lapsed. Patient explained that he has Medicare A and B. CM spoke with KELLEE and given themhis Medicare number [id number], she sent it to Admission. DEBRA spoke with Kerri, with [facility], and explained that he had [...] orders over to [facility] at [phone]. CM will follow up with them tomorrow [...] with patient at bedside today. Wheelchair from [employer] is at bedside. Patient getting PICC line [...] family Patient/Family Anticipated Services at Transition case mgrmultimedia services manager Anticipated family or friend will provide Discharge Needs Assessment Equipment Currently Used at Home glucometer;shower chair;pulse ox;bp cuff;prosthesis;crutches Equipment Needed After Discharge none Discharge Plan Row Name 04/07/25 1144 Plan Plan Home Patient/Family in Agreement with Plan yes Plan Comments CM spoke with patient at bedside today. Patient lives with and his [address] [place] [facility]. 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 He has walker, cane, shower chair, and crutches. He requested a wheelchair for home. CM [facility]. He is not current with home health services. PCP is Dr. Jordan. Insurance is [employer] [place]. Patient discharge plan is home with priavte transport. CM will follow for any discharge needs. Final Discharge Disposition Code 01 - home or self-care Continued Care and Services - Admitted Since 04/04/2025 No active coordination exists. Demographic Summary Row Name 04/07/25 1143 General Information Arrived From hospital Preferred Language Swedish Functional Status Row Name 04/07/25 1143 Functional [...] 3:4 0 PM EDT Right BKA infection MT SEC ABDOMINAL WALL SUTURE EVISCERATION/DEHSN 04/08/2025 3:20 [...] Differential (04/11/2025 3:40 AM EDT) [facility] WBC 7.87 3.40 - 10.80 10*3/mm3 04/11/2025 4:02 AM EDT [facility] RBC 4.70 4.14 - 5.80 10*6/mm3 04/11/2025 4:02 AM [facility] Hemoglobin 12.8(L) 13.0 - 17.7 g/dL 04/11/2025 4:02 AM [facility] Hematocrit 40.5 37.5 - 51.0 % 04/11/2025 4:02 AM [facility] MCV 86.2 79.0 - 97.0 fL 04/11/2025 4:02 AM [facility] MCH 27.2 26.6 - 33.0 pg 04/11/2025 4:02 AM [facility] MCHC 31.6 31.5 - 35.7 g/dL 04/11/2025 4:02 AM [facility] RDW 12.9 12.3 - 15.4 % 04/11/2025 4:02 AM [facility] RDW-SD 40.5 37.0 - 54.0 fl 04/11/2025 4:02 AM [facility] MPV 9.2 6.0 - 12.0 fL 04/11/2025 4:02 AM [facility] Platelets 267 140 - 450 10*3/mm3 04/11/2025 4:02 AM [facility] Neutrophil % 59.5 42.7 - 76.0 % 04/11/2025 4:02 AM [facility] Lymphocyte % 26.3 19.6 - 45.3 % 04/11/2025 4:02 AM [facility] Monocyte % 9.3 5.0 - 12.0 % 04/11/2025 4:02 AM [facility] Eosinophil % 4.1 0.3 - 6.2 % 04/11/2025 4:02 AM [facility] Basophil % 0.4 0.0 - 1.5 % 04/11[facility] Immature Grans % 0.4 0.0 - 0.5 % 04/11/2025 4:02 AM EDT [facility] Neutrophils, Absolute 4.69 1.70 - 7.00 10*3/mm3 04/11/2025 4:02 AM EDT [facility] Lymphocytes, Absolute 2.07 0.70 - 3.10 10*3/mm3 04/11/2025 4:02 AM EDT [facility] Monocytes, Absolute 0.73 0.10 - 0.90 10*3/mm3 04/11/2025 4:02 AM EDT [facility] Eosinophils, Absolute 0.32 0.00 - 0.40 10*3/mm3 04/11/2025 4:02 AM EDT [facility] Basophils, Absolute 0.03 0.00 - 0.20 10*3/mm3 04/11/2025 4:02 AM EDT [facility] Immature Grans, Absolute 0.03 0.00 - 0.05 10*3/mm3 04/11/2025 4:02 AM EDT [facility] nRBC 0.0 0.0 - 0.2 /100 WBC 04/11/2025 4:02 AM EDT [facility] Blood Venipuncture / Unknown 04/11/2025 3:40 AM EDT 04/11/2025 3:59 AM EDT us Sushil Dean Jr., MD LAB BLOOD ORDERABLES Fi nal Result [facility]
[address] [place] [address], * (ABNORMAL) Comprehensive Metabolic Panel (04/11/2025 3:40 AM EDT) Glucose 108(H) 65 - 99 mg/dL 04/11/2025 4:19 AM EDT [facility] BUN 12.5 6.0 - 20.0 mg/dL 04/11/2025 4:19 AM EDT [facility] Creatinine 0.68(L) 0.76 - 1.27 mg/dL 04/11/2025 4:19 AM [facility] Sodium 140 136 - 145 mmol/L 04/11/2025 4:19 AM [facility] Potassium 3.8 3.5 - 5.2 mmol/L 04/11/2025 4:19 AM [facility] Chloride 105 98 - 107 mmol/L 04/11/2025 4:19 AM [facility] CO2 28.2 22.0 - 29.0 mmol/L 04/11/2025 4:19 AM [facility] Calcium 8.2(L) 8.6 - 10.5 mg/dL 04/11/2025 4:19 AM [facility] Total Protein 6.1 6.0 - 8.5 g/dL 04/11/2025 4:19 AM [facility] Albumin 3.1(L) 3.5 - 5.2 g/dL 04/11/2025 4:19 AM [facility] ALT (SGPT) 52(H) 1 - 41 U/L 04/11/2025 4:19 AM [facility] AST (SGOT) 40 1 - 40 U/L 04/11/2025 4:19 AM [facility] Alkaline Phosphatase 99 39 - 117 U/L 04/11/2025 4:19 AM [facility] Total Bilirubin 0.2 0.0 - 1.2 mg/dL 04/11/2025 4:19 AM [facility] Globulin 3.0 gm/dL 04/11/2025 4:19 AM [facility] Comment:Calculated Result A/G Ratio 1.0 g/dL 04/11/2025 4:19 AM [facility] BUN/Creatinine Ratio 18.4 7.0 - 25.0 04/11/2025 4:19 AM [facility] Anion Gap 6.8 5.0 - 15.0 mmol/L 04/11/2025 4:19 AM [facility] eGFR 117.5 >60.0 mL/min/1.7 3 04/11/2025 4:19 AM EDT [facility] Blood Venipuncture / Unknown 04/11/2025 3:40 AM EDT 04/11/2025 3:56 AM EDT [facility] - 04/11/2025 4:19 AM EDT [...] LAB BLOOD ORDERABLES Final Result [facility]
[address] [place] [address], * (ABNORMAL) CBC Auto Differential (04/10/2025 3:46 AM EDT) WBC 9.60 3.40 - 10.80 10*3/mm3 04/10/2025 3:56 AM EDT [facility] RBC 4.67 4.14 - 5.80 10*6/mm3 04/10/2025 3:56 AM EDT [facility] Hemoglobin 12.9(L) 13.0 - 17.7 g/dL 04/10/2025 3:56 AM EDT [facility] Hematocrit 40.1 37.5 - 51.0 % 04/10/2025 3:56 AM EDT [facility] MCV 85.9 79.0 - 97.0 fL 04/10/2025 3:56 AM EDT [facility] MCH 27.6 26.6 - 33.0 pg 04/10/2025 3:[facility] MCHC 32.2 31.5 - 35.7 g/dL 04/10/2025 3:56 AM EDT [facility] RDW 12.9 12.3 - 15.4 % 04/10/2025 3:56 [facility] RDW-SD 40.5 37.0 - 54.0 fl 04/10/2025 3:56 AM EDT [facility] MPV 9.5 6.0 - 12.0 fL 04/10/2025 3:56 AM EDT [facility] Platelets 227 140 - 450 10*3/mm3 04/10/2025 3:56 AM [facility] Neutrophil % 59.1 42.7 - 76.0 % 04/10/2025 3:56 AM [facility] Lymphocyte % 29.0 19.6 - 45.3 % 04/10/2025 3:56 [facility] Monocyte % 8.1 5.0 - 12.0 % 04/10/2025 3:56 AM [facility] Eosinophil % 3.2 0.3 - 6.2 % 04/10/2025 3:56 AM [facility] Basophil % 0.4 0.0 - 1.5 % 04/10/2025 3:56 AM [facility] Immature Grans % 0.2 0.0 - 0.5 % 04/10/2025 3:56 [facility] Neutrophils, Absolute 5.67 1.70 - 7.00 10*3/mm3 04/10/2025 3:56 AM [facility] Lymphocytes, Absolute 2.78 0.70 - 3.10 10*3/mm3 04/10/2025 3:56 AM [facility] Monocytes, Absolute 0.78 0.10 - 0.90 10*3/mm3 04/10/2025 3:56 [facility] Eosinophils, Absolute 0.31 0.00 - 0.40 10*3/mm3 04/10/2025 3:56 AM EDT [facility] Basophils, Absolute 0.04 0.00 - 0.20 10*3/mm3 04/10/2025 3:56 AM EDT [facility] Immature Grans, Absolute 0.02 0.00 - 0.05 10*3/mm3 04/10/2025 3:56 AM EDT [facility] nRBC 0.0 0.0 - 0.2 /100 WBC 04/10/2025 3:56 AM EDT [facility] Blood Venipuncture / Unknown 04/10/2025 3:46 AM EDT 04/10/2025 3:53 AM EDT us Jason Álvarez DO LAB BLOOD ORDERABLES Final Resul t [facility]
[address] [place] [address], * (ABNORMAL) Basic Metabolic Panel (04/10/2025 3:46 AM EDT) Glucose 125(H) 65 - 99 mg/dL 04/10/2025 4:20 AM EDT [facility] BUN 15.9 6.0 - 20.0 mg/dL 04/10/2025 4:20 AM EDT [facility] Creatinine 0.77 0.76 - 1.27 mg/dL 04/10/2025 4:20 AM EDT [facility] Sodium 137 136 - 145 mmol/L 04/10/2025 4:20 AM EDT [facility] Potassium 3.9 3.5 - 5.2 mmol/L 04/10/2025 4:20 AM EDT [facility] Chloride 102 98 - 107 mmol/L 04/10/2025 4:20 AM EDT [facility] CO2 26.9 22.0 - 29.0 mmol/L 04/10/2025 4:20 AM EDT [facility] Calcium 7.9(L) 8.6 - 10.5 mg/dL 04/10/2025 4:20 AM EDT [facility] BUN/Creatinine Ratio 20.6 7.0 - 25.0 04/10/2025 4:20 AM EDT [facility] Anion Gap 8.1 5.0 - 15.0 mmol/L 04/10/2025 4:20 AM EDT [facility] eGFR 113.2 >60.0 mL/min/1.7 3 04/10/2025 4:20 AM EDT [facility] Blood Venipuncture / Unknown 04/10/2025 3:46 AM EDT 04/10/2025 3:52 AM EDT Narrative [facility] - 04/10/2025 4:20 AM EDT GFR [...] BLOOD ORDERABLES Final Resul t [facility]
[address] [place] [address], * Heparin Anti-Xa (04/10/2025 3:46 AM EDT) Heparin Anti-Xa (UFH) 0.35 0.30 - 0.70 IU/ml 04/10/2025 4:23 AM EDT [facility] Blood Venipuncture / Unknown 04/10/2025 3:46 AM EDT 04/10/2025 3:53 AM EDT Larisa Hamilton [facility] LAB BLOOD ORDERABLES Final R esult [facility]
[address] [place] [address], * Heparin Anti-Xa (04/09/2025 10:05 AM EDT) Pathologist [facility] Heparin Anti-Xa (UFH) 0.36 0.30 - 0.70 IU/ml 04/09/2025 11:12 AM EDT [facility] Blood Venipuncture / Unknown 04/09/2025 10:05 AM EDT 04/09/2025 10:47 AM EDT Larisa Hamilton [facility] LAB BLOOD ORDERABLES Final R esult [facility]
[address] [place] [address], * (ABNORMAL) CBC Auto Differential (04/09/2025 4:18 AM EDT) Pathologist [facility] WBC 11.00(H) 3.40 - 10.80 10*3/mm3 04/09/2025 4:50 AM EDT [facility] RBC 4.70 4.14 - 5.80 10*6/mm3 04/09/2025 4:50 AM EDT [facility] Hemoglobin 13.0 13.0 - 17.7 g/dL 04/09/2025 4:50 AM EDT [facility] Hematocrit 40.4 37.5 - 51.0 % 04/09/2025 4:50 AM EDT [facility] MCV 86.0 79.0 - 97.0 fL 04/09/2025 4:50 AM EDT [facility] MCH 27.7 26.6 - 33.0 pg 04/09/2025 4:50 AM EDT [facility] MCHC 32.2 31.5 - 35.7 g/dL 04/09/2025 4:50 AM EDT [facility] RDW 12.8 12.3 - 15.4 % 04/09/2025 4:50 AM [facility] RDW-SD 39.9 37.0 - 54.0 fl 04/09/2025 4:50 AM [facility] MPV 10.0 6.0 - 12.0 fL 04/09/2025 4:50 AM [facility] Platelets 211 140 - 450 10*3/mm3 04/09/2025 4:50 AM [facility] Neutrophil % 74.8 42.7 - 76.0 % 04/09/2025 4:50 AM [facility] Lymphocyte % 15.4(L) 19.6 - 45.3 % 04/09/2025 4:50 AM [facility] Monocyte % 8.5 5.0 - 12.0 % 04/09/2025 4:50 AM [facility] Eosinophil % 0.6 0.3 - 6.2 % 04/09/2025 4:50 AM [facility] Basophil % 0.4 0.0 - 1.5 % 04/09/2025 4:50 AM [facility] Immature Grans % 0.3 0.0 - 0.5 % 04/09/2025 4:50 AM [facility] Neutrophils, Absolute 8.23(H) 1.70 - 7.00 10*3/mm3 04/09/2025 4:50 AM [facility] Lymphocytes, Absolute 1.69 0.70 - 3.10 10*3/mm3 04/09/2025 4:50 AM [facility] Monocytes, Absolute 0.94(H) 0.10 - 0.90 10*3/mm3 04/09/2025 4:50 AM [facility] Eosinophils, Absolute 0.07 0.00 - 0.40 10*3/mm3 04/09/2025 4:[facility] Basophils, Absolute 0.04 0.00 - 0.20 10*3/mm3 04/09/2025 4:50 AM EDT [facility] Immature Grans, Absolute 0.03 0.00 - 0.05 10*3/mm3 04/09/2025 4:50 AM EDT [facility] nRBC 0.0 0.0 - 0.2 /100 WBC 04/09/2025 4:50 AM EDT [facility] Blood Venipuncture / Unknown 04/09/2025 4:18 AM EDT 04/09/2025 4:31 AM EDT Sushil Dean Jr., MD LAB BLOOD ORDERABLES Fi nal Result Performing Organization Address City/[facility]/ZIP Co de Phone Number [facility]
[address] [place] [address], * Heparin Anti-Xa (04/09/2025 4:18 AM EDT) Heparin Anti-Xa (UFH) 0.41 0.30 - 0.70 IU/ml 04/09/2025 4:53 AM EDT [facility] Blood Venipuncture / Unknown 04/09/2025 4:18 AM EDT 04/09/2025 4:31 AM EDT Una LundbergD LAB BLOOD ORDERABLES Final R esult [facility]
[address] [place] [address], * (ABNORMAL) Basic Metabolic Panel (04/09/2025 4:18 AM EDT) Glucose 147(H) 65 - 99 mg/dL 04/09/2025 5:33 AM EDT [facility] BUN 23.0(H) 6.0 - 20.0 mg/dL 04/09/2025 5:33 AM EDT [facility] Creatinine 1.15 0.76 - 1.27 mg/dL 04/09/2025 5:33 AM EDT [facility] Sodium 135(L) 136 - 145 mmol/L 04/09/2025 5:33 AM EDT [facility] Potassium 4.2 3.5 - 5.2 mmol/L 04/09/2025 5:33 AM EDT [facility] Chloride 100 98 - 107 mmol/L 04/09/2025 5:33 AM EDT [facility] CO2 26.0 22.0 - 29.0 mmol/L 04/09/2025 5:33 AM EDT [facility] Calcium 8.2(L) 8.6 - 10.5 mg/dL 04/09/2025 5:33 AM EDT [facility] BUN/Creatinine Ratio 20.0 7.0 - 25.0 04/09/2025 5:33 AM EDT [facility] Anion Gap 9.0 5.0 - 15.0 mmol/L 04/09/2025 5:33 AM EDT [facility] eGFR 80.5 >60.0 mL/min/1.7 3 04/09/2025 5:33 AM EDT [facility] Blood Venipuncture / Unknown 04/09/2025 4:18 AM EDT 04/09/2025 4:29 AM EDT [facility] - 04/09/2025 5:33 AM EDT [...] BLOOD ORDERABLES Fi nal Result [facility]
[address] [place] [address], * Wound Culture - Swab, Leg, Right (04/08/2025 3:40 PM EDT) Wound Culture No growth at 3 days ALIZA 04/11/2025 10:40 AM EDT [facility] Gram Stain Few (2+) WBCs seen 04/11/2025 10:40 AM EDT [facility] Gram Stain No organisms seen 04/11/2025 10:40 AM EDT [facility] Swab Structure of right lower limb / Unknown 04/08/2025 3:40 PM EDT 04/08/2025 8:05 PM EDT us Sushil Dean Jr., MD MICROBIOLOGY - GENERAL ORDERABLES Final Result Performing Organization Address City/[facility]/ZIP Co de Phone Number [facility]
[address] [place] [address], [facility]
[address] [place] [address], * Anaerobic Culture - Swab, Leg, Right (04/08/2025 3:40 PM EDT) Anaerobic Culture No anaerobes isolated at 5 days ALIZA 04/13/2025 7:24 AM EDT [facility] Swab Structure of right lower limb / Unknown 04/08/2025 3:40 PM EDT 04/08/2025 8:05 PM EDT us Sushil Dean Jr., MD MICROBIOLOGY - GENERAL ORDERABLES Final Result Performing Organization Address City/[facility]/ZIP Co de Phone Number [facility]
[address] [place] [address], * Scan Slide (04/08/2025 8:41 AM EDT) RBC Morphology Normal Normal 04/08/2025 11:02 AM EDT [facility] WBC Morphology Normal Normal 04/08/2025 11:02 AM EDT [facility] Platelet Estimate Adequate Normal 04/08/2025 11:02 AM EDT [facility] Clumped Platelets Present None Seen 04/08/2025 11:02 AM EDT [facility] Blood Venipuncture / Unknown 04/08/2025 8:41 AM EDT 04/08/2025 9:10 AM EDT Una Minda PharmD LAB BLOOD ORDERABLES Final R esult [facility]
[address] [place] [address], * (ABNORMAL) CBC Auto Differential (04/08/2025 8:41 AM EDT) WBC 10.07 3.40 - 10.80 10*3/mm3 04/08/2025 11:02 AM EDT [facility] RBC 5.01 4.14 - 5.80 10*6/mm3 04/08/2025 11:02 AM EDT [facility] Hemoglobin 14.0 13.0 - 17.7 g/dL 04/08/2025 11:02 AM EDT [facility] Hematocrit 42.7 37.5 - 51.0 % 04/08/2025 11:02 AM EDT [facility] MCV 85.2 79.0 - 97.0 fL 04/08/2025 11:02 AM EDT [facility] MCH 27.9 26.6 - 33.0 pg 04/08/2025 11:02 AM EDT [facility] MCHC 32.8 31.5 - 35.7 g/dL 04/08/2025 11:02 AM EDT [facility] RDW 12.6 12.3 - 15.4 % 04/08/2025 11:02 AM EDT [facility] RDW-SD 38.9 37.0 - 54.0 fl [...] 0.70 - 3.10 10*3/mm3 04/08/2025 11:02 AM [facility] Monocytes, Absolute 0.46 0.10 - 0.90 10*3/mm3 04/08/2025 11:02 AM [facility] Eosinophils, Absolute 0.03 0.00 - 0.40 10*3/mm3 04/08/2025 11:02 AM [facility] Basophils, Absolute 0.02 0.00 - 0.20 10*3/mm3 04/08/2025 11:02 AM [facility] Immature Grans, Absolute 0.05 0.00 - 0.05 10*3/mm3 04/08/2025 11:02 AM EDT [facility] nRBC 0.0 0.0 - 0.2 /100 WBC 04/08/2025 11:02 AM EDT [facility] Blood Venipuncture / Unknown 04/08/2025 8:41 AM EDT 04/08/2025 9:10 AM EDT Una Perla PharmD LAB BLOOD ORDERABLES Final R esult [facility]
[address] [place] [address], * (ABNORMAL) Basic Metabolic Panel (04/08/2025 8:41 AM EDT) Glucose 125(H) 65 - 99 mg/dL 04/08/2025 9:51 AM EDT [facility] BUN 13.2 6.0 - 20.0 mg/dL 04/08/2025 9:51 AM EDT [facility] Creatinine 0.69(L) 0.76 - 1.27 mg/dL 04/08/2025 9:51 AM EDT [facility] Sodium 136 136 - 145 mmol/L 04/08/2025 9:51 AM EDT [facility] Potassium 4.6 3.5 - 5.2 mmol/L 04/08/2025 9:51 AM EDT [facility] Chloride 102 98 - 107 mmol/L 04/08/2025 9:51 AM EDT [facility] CO2 23.5 22.0 - 29.0 mmol/L 04/08/2025 9:51 AM EDT [facility] Calcium 8.4(L) 8.6 - 10.5 mg/dL 04/08/2025 9:51 AM EDT [facility] BUN/Creatinine Ratio 19.1 7.0 - 25.0 04/08/2025 9:51 AM EDT [facility] Anion Gap 10.5 5.0 - 15.0 mmol/L 04/08/2025 9:51 AM EDT [facility] eGFR 117.0 >60.0 mL/min/1.7 3 04/08/2025 9:51 AM EDT [facility] Blood Venipuncture / Unknown 04/08/2025 8:41 AM EDT 04/08/2025 9:09 AM EDT Narrative [facility] - 04/08/2025 9:51 AM EDT GFR [...] ORDERABLES Fi nal Result Performing Organization Address City/[facility]/ZIP Co de Phone Number [facility]
[address] [place] [address], * Heparin Anti-Xa (04/08/2025 8:41 AM EDT) Heparin Anti-Xa (UFH) 0.33 0.30 - 0.70 IU/ml 04/08/2025 9:40 AM EDT [facility] Blood Venipuncture / Unknown 04/08/2025 8:41 AM EDT 04/08/2025 9:10 AM EDT Sushil Dean Jr., MD LAB BLOOD ORDERABLES Fi nal Result Performing Organization Address City/[facility]/ZIP Co de Phone Number [facility]
[address] [place] [address], * FL C Arm During Surgery (04/07/2025 [...] seen 04/11/2025 10:40 AM EDT [facility] Gram Stain No organisms seen 04/11/2025 10:40 AM EDT [facility] Swab Structure of right lower limb / Unknown Collection / Unknown 04/07/2025 9:14 PM EDT 04/08/2025 4:36 AM EDT us Sushil Dean Jr., MD MICROBIOLOGY - GENERAL ORDERABLES Final Result Performing Organization Address City/[facility]/ZIP Co de Phone Number [facility]
[address] [place] [address], [place] [phone] [facility]
[address] [place] [address], [place] [phone] * Anaerobic Culture - Swab, Leg, Right [...] [facility]
[address] [place] [address], * Anaerobic Culture - Tissue, Leg (04/07/2025 9:13 PM EDT) Anaerobic Culture No anaerobes isolated at 5 days ALIZA 04/13/2025 7:21 AM EDT [facility] Tissue Lower limb structure / Unknown Collection / Unknown 04/07/2025 9:13 PM EDT 04/08/2025 4:54 AM EDT Jason Álvarez DO MICROBIOLOGY - GENERAL ORDERABLE S Final Result Performing Organization Address [facility]/State/ZIP Co de Phone Number [facility]
[address] [place] [address], * Tissue / Bone Culture - Tissue, Leg, Right (04/07/2025 9:13 PM EDT) Tissue Culture No growth at 3 days ALIZA 04/11/2025 10:36 AM EDT [facility] Gram Stain Rare (1+) WBCs seen 04/11/2025 10:36 AM EDT [facility] Gram Stain No organisms seen 04/11/2025 10:36 AM EDT [facility] Tissue Structure of right lower limb / Unknown 04/07/2025 9:13 PM EDT 04/08/2025 4:54 AM EDT Sushil Dean Jr., MD MICROBIOLOGY - GENERAL ORDERABLES Final Result [facility]
[address] [place] [address], [facility]
[address] [place] [address], [place] [phone] * (ABNORMAL) Wound Culture - Swab, Leg, Right (04/07/2025 9:07 PM EDT) Wound Culture Light growth (2+) Staphylococcus aureus, MRSA(A) ALIZA 04/10/2025 10:38 AM EDT [facility] Comment: Methicillin resistant Staphylococcus aureus, Patient may be an isolation risk. Gram Stain Few (2+) WBCs seen 04/10/2025 10:38 AM EDT [facility] Gram Stain No organisms seen 10:38 AM EDT [facility] Swab Structure of right lower limb [...] [facility]
[address] [place] [address], [place] [phone] [facility]
[address] [place] [address], [place] [phone] * Anaerobic Culture - Swab, Leg, Right [...] [facility]
[address] [place] [address], * Heparin Anti-Xa (04/07/2025 9:10 AM EDT) Pathologist [facility] Heparin Anti-Xa ([facility]) 0.30 0.30 - 0.70 IU/ml 04/07/2025 10:12 AM EDT [facility] Blood Venipuncture / Unknown 04/07/2025 9:10 AM EDT 04/07/2025 9:38 AM EDT Una Perla PharmD LAB BLOOD ORDERABLES Final R esult Performing Organization Address City/[facility]/ZIP Co de Phone Number [facility]
[address] [place] [address], * (ABNORMAL) CBC Auto Differential (04/07/2025 9:10 AM EDT) Pathologist [facility] WBC 8.63 3.40 - 10.80 10*3/mm3 04/07/2025 9:50 AM EDT [facility] RBC 5.23 4.14 - 5.80 10*6/mm3 04/07/2025 9:50 AM EDT [facility] Hemoglobin 14.7 13.0 - 17.7 g/dL 04/07/2025 9:50 AM EDT [facility] Hematocrit 44.8 37.5 - 51.0 % 04/07/2025 9:50 AM EDT [facility] MCV 85.7 79.0 - 97.0 fL 04/07/2025 9:50 AM EDT [facility] MCH 28.1 26.6 - 33.0 pg 04/07/2025 9:50 AM EDT [facility] MCHC 32.8 31.5 - 35.7 g/dL 04/07/2025 9:50 AM EDT [facility] RDW 12.8 12.3 - 15.4 % 04/07/2025 9:50 AM [facility] RDW-SD 39.9 37.0 - 54.0 fl 04/07/2025 9:50 AM [facility] MPV 10.8 6.0 - 12.0 fL 04/07/2025 9:50 AM [facility] Platelets 149 140 - 450 [...] 1.70 - 7.00 10*3/mm3 04/07/2025 9:50 AM [facility] Lymphocytes, Absolute 1.77 0.70 - 3.10 10*3/mm3 04/07/2025 9:50 AM [facility] Monocytes, Absolute 0.85 0.10 - 0.90 10*3/mm3 04/07/2025 9:50 AM [facility] Eosinophils, Absolute 0.18 0.00 - 0.40 10*3/mm3 04/07/2025 9:50 AM [facility] Basophils, Absolute 0.03 0.00 - 0.20 10*3/mm3 04/07/2025 9:50 AM [facility] Immature Grans, Absolute 0.05 0.00 - 0.05 10*3/mm3 04/07/2025 9:50 AM EDT [facility] nRBC 0.0 0.0 - 0.2 /100 WBC 04/07/2025 9:50 AM EDT [facility] Blood Venipuncture / Unknown 04/07/2025 9:10 AM EDT 04/07/2025 9:38 AM EDT us Jason Álvarez DO LAB BLOOD ORDERABLES Final Resul t [facility]
[address] [place] [address], * (ABNORMAL) Basic Metabolic Panel (04/07/2025 9:10 AM EDT) Glucose 112(H) 65 - 99 mg/dL 04/07/2025 10:19 AM EDT [facility] BUN 13.1 6.0 - 20.0 mg/dL 04/07/2025 10:19 AM EDT [facility] Creatinine 0.77 0.76 - 1.27 mg/dL 04/07/2025 10:19 AM EDT [facility] Sodium 139 136 - 145 mmol/L 04/07/2025 10:19 AM EDT [facility] Potassium 4.2 3.5 - 5.2 mmol/L 04/07/2025 10:19 AM EDT [facility] Comment:Specimen hemolyzed. Result may be falsely elevated. Chloride 105 98 - 107 mmol/L 04/07/2025 10:19 AM EDT [facility] CO2 24.8 22.0 - 29.0 mmol/L 04/07/2025 10:19 AM EDT [facility] Calcium 8.6 8.6 - 10.5 mg/dL 04/07/2025 10:19 AM EDT [facility] BUN/Creatinine Ratio 17.0 7.0 - 25.0 04/07/2025 10:19 AM EDT [facility] Anion Gap 9.2 5.0 - 15.0 mmol/L 04/07/2025 10:19 AM EDT [facility] eGFR 113.2 >60.0 mL/min/1.7 3 04/07/2025 10:19 AM EDT [facility] Blood Venipuncture / Unknown 04/07/2025 9:10 AM EDT 04/07/2025 9:38 AM EDT Narrative [facility] - 04/07/2025 10:19 AM EDT GFR [...] BLOOD ORDERABLES Final Resul t [facility]
[address] [place] [address], * MRI Tibia Fibula Right With & [...] [place] 04/07/2025 9:58 AM EDT Workstation ID: [id number] Narrative 04/07/2025 9:58 AM EDT MRI TIBIA [...] [place] 04/07/2025 9:58 AM EDT Workstation ID: [id number] Sushil Dean Jr., MD IMG MRI ORDERABLES Mary Beth l Result * Heparin Anti-Xa (04/07/2025 1:42 AM EDT) [facility] Heparin Anti-Xa (UFH) 0.38 0.30 - 0.70 IU/ml 04/07/2025 2:14 AM EDT [facility] Blood Venipuncture / Unknown 04/07/2025 1:42 AM EDT 04/07/2025 1:54 AM EDT Chelsie Turpin [facility] LAB BLOOD ORDERABLES Final R esult [facility]
[address] [place] [address], * Heparin Anti-Xa (04/06/2025 7:16 PM EDT) [facility] Heparin Anti-Xa (UFH) 0.33 0.30 - 0.70 IU/ml 04/06/2025 7:50 PM EDT [facility] Blood Venipuncture / Unknown 04/06/2025 7:16 PM EDT 04/06/2025 7:35 PM EDT Cherri Beatty [facility] LAB BLOOD ORDERABLES Final Res ult Performing Organization Address [facility] Co de Phone Number [facility]
[address] [place] [address], * Potassium (04/06/2025 7:16 PM EDT) [facility] Potassium 4.0 3.5 - 5.2 mmol/L 04/06/2025 7:53 PM EDT [facility] Blood Venipuncture / Unknown 04/06/2025 7:16 PM EDT 04/06/2025 7:35 PM EDT Jason Álvarez DO LAB BLOOD ORDERABLES Final Resul t Performing Organization Address [facility] de Phone Number [facility]
[address] [place] [address], * (ABNORMAL) Heparin Anti-Xa (04/06/2025 12:36 PM EDT) [facility] Heparin Anti-Xa (UFH) 0.24(L) 0.30 - 0.70 IU/ml 04/06/2025 1:23 PM EDT [facility] Blood Venipuncture / Unknown 04/06/2025 12:36 PM EDT 04/06/2025 1:07 PM EDT Una Perla PharmD LAB BLOOD ORDERABLES Final R esult Performing Organization Address [facility] Co de Phone Number [facility]
[address] [place] [address], * (ABNORMAL) Heparin Anti-Xa (04/06/2025 3:42 AM EDT) [facility] Heparin Anti-Xa (UFH) 0.25(L) 0.30 - 0.70 IU/ml 04/06/2025 5:30 AM EDT [facility] Blood Venipuncture / Unknown 04/06/2025 3:42 AM EDT 04/06/2025 4:59 AM EDT Chelsie Dyana [facility] LAB BLOOD ORDERABLES Final R esult [facility]
[address] [place] [address], * (ABNORMAL) Basic Metabolic Panel (04/06/2025 3:42 AM EDT) [facility] Glucose 94 65 - 99 mg/dL 04/06/2025 5:59 AM EDT [facility] BUN 12.8 6.0 - 20.0 mg/dL 04/06/2025 5:59 AM EDT [facility] Creatinine 0.80 0.76 - 1.27 mg/dL 04/06/2025 5:59 AM EDT [facility] Sodium 138 136 - 145 mmol/L 04/06/2025 5:59 AM EDT [facility] Potassium 3.6 3.5 - 5.2 mmol/L 04/06/2025 5:59 AM EDT [facility] Chloride 103 98 - 107 mmol/L 04/06/2025 5:59 AM EDT [facility] CO2 24.2 22.0 - 29.0 mmol/L 04/06/2025 5:59 AM EDT [facility] Calcium 8.0(L) 8.6 - 10.5 mg/dL 04/06/2025 5:59 AM EDT [facility] BUN/Creatinine Ratio 16.0 7.0 - 25.0 04/06/2025 5:59 AM EDT [facility] Anion Gap 10.8 5.0 - 15.0 mmol/L 04/06/2025 5:59 AM EDT [facility] eGFR 111.9 >60.0 mL/min/1.7 3 04/06/2025 5:59 AM EDT [facility] Blood Venipuncture / Unknown 04/06/2025 3:42 AM EDT 04/06/2025 5:20 AM EDT [facility] - 04/06/2025 5:59 AM EDT [...] BLOOD ORDERABLES Final Resul t [facility]
[address] [place] [address], * (ABNORMAL) CBC Auto Differential (04/06/2025 3:41 AM EDT) WBC 10.86(H) 3.40 - 10.80 10*3/mm3 04/06/2025 5:04 AM EDT [facility] RBC 5.08 4.14 - 5.80 10*6/mm3 04/06/2025 5:04 AM EDT [facility] Hemoglobin 13.9 13.0 - 17.7 g/dL 04/06/2025 5:04 AM EDT [facility] Hematocrit 43.7 37.5 - 51.0 % 04/06/2025 5:04 AM EDT [facility] MCV 86.0 79.0 - 97.0 fL 04/06/2025 5:[facility] MCH 27.4 26.6 - 33.0 pg [...] 0.0 - 1.5 % 04/06/2025 5:04 [facility] Immature Grans % 0.3 0.0 - 0.5 % 04/06/2025 5:04 AM [facility] Neutrophils, Absolute 7.09(H) 1.70 - 7.00 10*3/mm3 04/06/2025 5:04 [facility] Lymphocytes, Absolute 2.23 0.70 - 3.10 10*3/mm3 04/06/2025 5:04 [facility] Monocytes, Absolute 1.28(H) 0.10 - 0.90 10*3/mm3 04/06/2025 5:04 AM EDT [facility] Eosinophils, Absolute 0.20 0.00 - 0.40 10*3/mm3 04/06/2025 5:04 AM EDT [facility] Basophils, Absolute 0.03 0.00 - 0.20 10*3/mm3 04/06/2025 5:04 AM EDT [facility] Immature Grans, Absolute 0.03 0.00 - 0.05 10*3/mm3 04/06/2025 5:04 AM EDT [facility] nRBC 0.0 0.0 - 0.2 /100 WBC 04/06/2025 5:04 AM EDT [facility] Blood Venipuncture / Unknown 04/06/2025 3:41 AM EDT 04/06/2025 4:58 AM EDT Jason Álvarez DO LAB BLOOD ORDERABLES Final Resul t Performing Organization Address City/[facility] Co de Phone Number [facility]
[address] [place] [address], [place] [phone] * Heparin Anti-Xa (04/05/2025 8:43 PM EDT) Pathologist [facility] Heparin Anti-Xa (UFH) 0.38 0.30 - 0.70 IU/ml 04/05/2025 9:09 PM EDT [facility] Blood Venipuncture / Unknown 04/05/2025 8:43 PM EDT 04/05/2025 8:55 PM EDT us Cherri Beatty [facility] LAB BLOOD ORDERABLES Final Res ult Performing Organization Address City/[facility] Co de Phone Number [facility]
[address] [place] [address], [place] [phone] * CK (04/05/2025 12:15 PM EDT) Creatine Kinase 140 20 - 200 U/L 04/05/2025 1:31 PM EDT [facility] Blood Venipuncture / Unknown 04/05/2025 12:15 PM EDT 04/05/2025 1:03 PM EDT Carlton Mead MD LAB BLOOD ORDERABLES Final R esult Performing Organization Address City/[facility]/ZIP Co de Phone Number [facility]
[address] [place] [address], * (ABNORMAL) Heparin Anti-Xa (04/05/2025 12:15 PM EDT) [facility] Heparin Anti-Xa (UFH) 0.17(L) 0.30 - 0.70 IU/ml 04/05/2025 1:21 PM EDT [facility] Blood Venipuncture / Unknown 04/05/2025 12:15 PM EDT 04/05/2025 1:04 PM EDT Una Perla PharmD LAB BLOOD ORDERABLES Final R esult Performing Organization Address City/[facility] Co de Phone Number [facility]
[address] [place] [address], * (ABNORMAL) aPTT (04/05/2025 3:54 AM EDT) [facility] PTT 35.3(L) 60.0 - 90.0 seconds 04/05/2025 4:31 AM EDT [facility] Blood Venipuncture / Unknown 04/05/2025 3:54 AM EDT 04/05/2025 4:15 AM EDT Narrative [facility] - 04/05/2025 4:31 AM EDT PTT = The equivalent PTT values for the therapeutic range of heparin levels at 0.3 to 0.5 U/ml are 60 to 70 seconds. [employer] LAB BLOOD ORDERABLES Final R esult [facility]
[address] [place] [address], * Heparin Anti-Xa (04/05/2025 3:54 AM EDT) Pathologist [facility] Heparin Anti-Xa (UFH) 0.30 0.30 - 0.70 IU/ml 04/05/2025 4:32 AM EDT [facility] Blood Venipuncture / Unknown 04/05/2025 3:54 AM EDT 04/05/2025 4:15 AM EDT [employer] LAB BLOOD ORDERABLES Final R esult Performing Organization Address City/[facility]/ZIP Co de Phone Number [facility]
[address] [place] [address], * (ABNORMAL) CBC Auto Differential (04/05/2025 3:54 AM EDT) [facility] WBC 11.18(H) 3.40 - 10.80 10*3/mm3 04/05/2025 4:20 AM EDT [facility] RBC 5.00 4.14 - 5.80 10*6/mm3 04/05/2025 4:20 AM EDT [facility] Hemoglobin 13.9 13.0 - 17.7 g/dL 04/05/2025 4:20 AM EDT [facility] Hematocrit 42.4 37.5 - 51.0 % 04/05/2025 4:20 AM EDT [facility] MCV 84.8 79.0 - 97.0 fL 04/05/2025 4:20 AM EDT [facility] MCH 27.8 26.6 - 33.0 pg 04/05/2025 4:20 AM EDT [facility] MCHC 32.8 31.5 - 35.7 g/dL [...] 1.70 - 7.00 10*3/mm3 04/05/2025 4:20 AM [facility] Lymphocytes, Absolute 1.56 0.70 - 3.10 10*3/mm3 04/05/2025 4:20 AM [facility] Monocytes, Absolute 1.23(H) 0.10 - 0.90 10*3/mm3 04/05/2025 4:20 AM [facility] Eosinophils, Absolute 0.09 0.00 - 0.40 10*3/mm3 04/05/2025 4:20 AM [facility] Basophils, Absolute 0.03 0.00 - 0.20 10*3/mm3 04/05/2025 4:20 AM EDT [facility] Immature Grans, Absolute 0.04 0.00 - 0.05 10*3/mm3 04/05/2025 4:20 AM EDT [facility] nRBC 0.0 0.0 - 0.2 /100 WBC 04/05/2025 4:20 AM EDT [facility] Blood Venipuncture / Unknown 04/05/2025 3:54 AM EDT 04/05/2025 4:16 AM EDT Una Perla PharmD LAB BLOOD ORDERABLES Final R esult [facility]
[address] [place] [address], * (ABNORMAL) Basic Metabolic Panel (04/05/2025 3:54 AM EDT) Glucose 152(H) 65 - 99 mg/dL 04/05/2025 4:40 AM EDT [facility] BUN 17.3 6.0 - 20.0 mg/dL 04/05/2025 4:40 AM EDT [facility] Creatinine 0.92 0.76 - 1.27 mg/dL 04/05/2025 4:40 AM EDT [facility] Sodium 136 136 - 145 mmol/L 04/05/2025 4:40 AM EDT [facility] Potassium 3.9 3.5 - 5.2 mmol/L 04/05/2025 4:40 AM EDT [facility] Chloride 103 98 - 107 mmol/L 04/05/2025 4:40 AM EDT [facility] CO2 24.0 22.0 - 29.0 mmol/L 04/05/2025 4:40 AM EDT [facility] Calcium 7.8(L) 8.6 - 10.5 mg/dL 04/05/2025 4:40 AM EDT [facility] BUN/Creatinine Ratio 18.8 7.0 - 25.0 04/05/2025 4:40 AM EDT [facility] Anion Gap 9.0 5.0 - 15.0 mmol/L 04/05/2025 4:40 AM EDT [facility] eGFR 105.2 >60.0 mL/min/1.7 3 04/05/2025 4:40 AM EDT [facility] Blood Venipuncture / Unknown 04/05/2025 3:54 AM EDT 04/05/2025 4:15 AM EDT [facility] - 04/05/2025 4:40 AM EDT GFR [...] BLOOD ORDERABLES Final Re sult [facility]
[address] [place] [address], * (ABNORMAL) aPTT (04/05/2025 12:18 AM EDT) PTT 33.6(L) 60.0 - 90.0 seconds 04/05/2025 12:53 AM EDT [facility] Blood Venipuncture / Unknown 04/05/2025 12:18 AM EDT 04/05/2025 12:37 AM EDT [facility] - 04/05/2025 12:53 AM EDT PTT = The equivalent PTT values for the therapeutic range of heparin levels at 0.3 to 0.5 U/ml are 60 to 70 seconds. [employer] PharmD LAB BLOOD ORDERABLES Final R esult [facility]
[address] [place] [address], [place] [phone] * (ABNORMAL) Protime-INR (04/05/2025 12:18 AM EDT) Protime 15.9(H) 12.2 - 15.3 Seconds 04/05/2025 12:53 AM EDT [facility] INR 1.19(H) 0.89 - 1.12 04/05/2025 12:53 AM EDT [facility] Blood Venipuncture / Unknown 04/05/2025 12:18 AM EDT 04/05/2025 12:37 AM EDT [employer] PharmD LAB BLOOD ORDERABLES Final R esult Performing Organization Address [facility] Co de Phone Number [facility]
[address] [place] [address], [place] [phone] * Heparin Anti-Xa (04/05/2025 12:18 AM EDT) Pathologist [facility] Heparin Anti-Xa (UFH) 0.39 0.30 - 0.70 IU/ml 04/05/2025 12:54 AM EDT [facility] Blood Venipuncture / Unknown 04/05/2025 12:18 AM EDT 04/05/2025 12:37 AM EDT [employer] PharmD LAB BLOOD ORDERABLES Final R esult Performing Organization Address City/[facility]/ZIP Co de Phone Number [facility]
[address] [place] [address], [place] [phone] * MRI Tibia Fibula Right With & [...] MD 04/04/2025 11:00 PM EDT Workstation ID: [id number] Narrative 04/04/2025 11:00 PM EDT MRI TIBIA [...] MD 04/04/2025 11:00 PM EDT Workstation ID: [id number] Leonora Shepherd MD IMG MRI ORDERABLES Final Resu lt * POC Creatinine (04/04/2025 2:49 PM EDT) Creatinine 1.10 0.60 - 1.30 mg/dL 04/07/2025 7:14 PM EDT [facility] Comment:Serial Number: [id number] [id number] Venous Blood 04/04/2025 2:49 PM EDT 04/07/2025 7:14 PM EDT Jason Álvarez DO POINT OF CARE TEST ORDERABLES Fi nal Result [facility]
[address] [place] [address], [place] [phone] * (ABNORMAL) CBC Auto Differential (04/04/2025 2:47 PM EDT) [facility] WBC 12.72(H) 3.40 - 10.80 10*3/mm3 04/04/2025 2:56 PM EDT [facility] RBC 5.64 4.14 - 5.80 10*6/mm3 04/04/2025 2:56 PM EDT [facility] Hemoglobin 15.3 13.0 - 17.7 g/dL 04/04/2025 2:56 PM EDT [facility] Hematocrit 47.9 37.5 - 51.0 % 04/04/2025 2:56 PM EDT [facility] MCV 84.9 79.0 - 97.0 fL 04/04/2025 2:56 PM EDT [facility] MCH 27.1 26.6 - 33.0 pg 04/04/2025 2:56 PM EDT [facility] MCHC 31.9 31.5 - 35.7 g/dL 04/04/2025 2:56 PM EDT [facility] RDW 13.1 12.3 - 15.4 % 04/04/2025 2:56 PM EDT [facility] RDW-SD 40.3 37.0 - 54.0 fl 04/04/2025 2:56 PM EDT [facility] MPV 9.4 6.0 - 12.0 fL 04/04/2025 2:56 PM EDT [facility] Platelets 232 140 - 450 10*3/mm3 04/04/2025 2:56 PM EDT [facility] Neutrophil % 74.9 42.7 - 76.0 % 04/04/2025 2:56 PM EDT [facility] Lymphocyte % 13.1(L) 19.6 - 45.3 % 04/04/2025 2:56 PM EDT [facility] Monocyte % 11.2 5.0 - 12.0 % 04/04/2025 2:56 PM EDT [facility] Eosinophil % 0.4 0.3 - 6.2 % 04/04/2025 2:56 PM EDT [facility] Basophil % 0.2 0.0 - 1.5 % 04/04/2025 2:56 PM EDT [facility] Immature Grans % 0.2 0.0 - 0.5 % 04/04/2025 2:56 PM EDT [facility] Neutrophils, Absolute 9.52(H) 1.70 - 7.00 10*3/mm3 04/04/2025 2:56 PM EDT [facility] Lymphocytes, Absolute 1.66 0.70 - 3.10 10*3/mm3 04/04/2025 2:56 PM EDT [facility] Monocytes, Absolute 1.43(H) 0.10 - 0.90 10*3/mm3 04/04/2025 2:56 PM EDT [facility] Eosinophils, Absolute 0.05 0.00 - 0.40 10*3/mm3 04/04/2025 2:56 PM EDT [facility] Basophils, Absolute 0.03 0.00 - 0.20 10*3/mm3 04/04/2025 2:56 PM EDT [facility] Immature Grans, Absolute 0.03 0.00 - 0.05 10*3/mm3 04/04/2025 2:56 PM EDT [facility] nRBC 0.0 0.0 - 0.2 /100 WBC 04/04/2025 2:56 PM EDT [facility] Blood Venipuncture / Unknown 04/04/2025 2:47 PM EDT 04/04/2025 2:52 PM EDT us Mario Crowley DO LAB BLOOD ORDERABLES Fin al Result [facility]
[address] [place] [address], * (ABNORMAL) C-reactive Protein (04/04/2025 2:47 PM EDT) Pathologist [facility] C-Reactive Protein 8.57(H) 0.00 - 0.50 mg/dL 04/04/2025 3:26 PM EDT [facility] Blood Venipuncture / Unknown 04/04/2025 2:47 PM EDT 04/04/2025 2:52 PM EDT Mario Ortiz Keo LAB BLOOD ORDERABLES Fin al Result [facility]
[address] [place] [address], * (ABNORMAL) Sedimentation Rate (04/04/2025 2:47 PM EDT) [facility] Sed Rate 51(H) 0 - 15 mm/hr 04/04/2025 3:06 PM EDT [facility] Blood Venipuncture / Unknown 04/04/2025 2:47 PM EDT 04/04/2025 2:52 PM EDT Mario Ortiz Keo LAB BLOOD ORDERABLES Fin al Result Performing Organization Address City/[facility]/ZIP Co de Phone Number [facility]
[address] [place] [address], * Comprehensive Metabolic Panel (04/04/2025 2:47 PM EDT) [facility] Glucose 90 65 - 99 mg/dL 04/04/2025 3:26 PM EDT [facility] BUN 18.3 6.0 - 20.0 mg/dL 04/04/2025 3:26 PM EDT [facility] Creatinine 0.94 0.76 - 1.27 mg/dL 04/04/2025 3:26 PM EDT [facility] Sodium 136 136 - 145 mmol/L 04/04/2025 3:26 PM EDT [facility] Potassium 3.8 3.5 - 5.2 mmol/L 04/04/2025 3:26 PM EDT [facility] Chloride 100 98 - 107 mmol/L 04/04/2025 3:26 PM EDT [facility] CO2 25.3 22.0 - 29.0 mmol/L 04/04/2025 3:26 PM EDT [facility] Calcium 8.6 8.6 - 10.5 mg/dL 04/04/2025 3:26 PM EDT [facility] Total Protein 7.3 6.0 - 8.5 g/dL 04/04/2025 3:26 PM EDT [facility] Albumin 4.1 3.5 - 5.2 g/dL 04/04/2025 3:26 PM EDT [facility] ALT (SGPT) 26 1 - 41 U/L 04/04/2025 3:26 PM EDT [facility] AST (SGOT) 25 1 - 40 U/L 04/04/2025 3:26 PM EDT [facility] Alkaline Phosphatase 106 39 - 117 U/L 04/04/2025 3:26 PM T [facility] Total Bilirubin 1.0 0.0 - 1.2 mg/dL 04/04/2025 3:26 PM EDT [facility] Globulin 3.2 gm/dL 04/04/2025 3:26 PM T [facility] Comment:Calculated Result A/G Ratio 1.3 g/dL 04/04/2025 3:26 PM EDT [facility] BUN/Creatinine Ratio 19.5 7.0 - 25.0 04/04/2025 3:26 PM T [facility] Anion Gap 10.7 5.0 - 15.0 mmol/L 04/04/2025 3:26 PM T [facility] eGFR 102.5 >60.0 mL/min/1.7 3 04/04/2025 3:26 PM [facility] Blood Venipuncture / Unknown 04/04/2025 2:47 PM EDT 04/04/2025 2:52 PM EDT Narrative [facility] - 04/04/2025 3:26 PM EDT GFR [...] BLOOD ORDERABLES Fin al Result [facility]
[address] [place] [address], documented in this encounter Visit Diagnoses Diagnosis [...] BPA Driven Protocol Open Order & Select [facility] Electrolyte Replacement Protocol Algorithm to View Details [...] BPA Driven Protocol Open Order & Select [facility] Electrolyte Replacement Protocol Algorithm to View Details [...] Scheduled, First dose (after last modification) on [place] 04/10/25 at 1045, Tablet may be crushed [...] Salazar, KELL)1943 (Given - Provider: Anahy Marcelino, [employer])2129 (Canceled Entry - Provider: Anahy Marcelino [employer] - Comment: previously given) 0837 (Given - [...] medication prescribed for a lower pain scale. ([facility]) If given for pain, use the [...] Continuous Medication Order 04/09/2025 04/10/2025 04/11/2025 heparin 64704 units/250 mL (100 units/mL) in 0.45 % [...] BPA Driven Protocol Open Order & [facility] Electrolyte Replacement Protocol Algorithm to View Details [...] as of this encounter Care Teams Wet Cotton Feeder Relationship Specialty Start Date End Date Provider, [place] [address] PCP - General 05/09/23 documented as of this encounter
--- OUTSIDE RECORDS SUMMARY | 2025-04-08 14:34 | XMS_ITS | Encounter Summary ---
Author Organization [facility] Address [address] [place] [address] Care Team Providers Care Rn Nicu Name Role Phone Provider, No Known Primary Care Provider Unavail able Reason for Visit * Auth/Cert Specialty Diagnoses / Procedures Referred By Bulmaro muniz Referred To Contact Diagnoses Right BKA infection Referral ID Status Reason Start Date Expiration Date Visits Re quested Visits Authorized [id number] 1 1 Encounter Details Date Type Department Care Team (Late st Contact Info) Description 04/08/2025 3:34 PM EDT Anesthesia Event [facility] OR [address] [place] [address] Ulises Hoffman MD [address] [place] [address] Jairo Brooks MD [address] [place] [address] Anesthesia Record Procedure Summary Procedure Name Responsible [...] Recorded In the past 12 months has [employer], oil, or water [employer] threatened to shut off services in your [...] or training? Not on file Preferred Language Burundian 04/07/2025 Sex and Gender Information Value Date Recorded Sex Assigned at Not on file Legal Sex Male 7:30 PM EDT Gender Identity Not on file Sexual Orientation Not on file documented as of this encounter OR Notes * Anesthesia Postprocedure Evaluation - Stan Casillas CRNA - 04/08/2025 4:40 PM EDT Patient: Won Dennis Procedure Summary Date: 04/08/25 Room / Location: [facility] OR [address] [place] [address] [facility] OR Anesthesia Start: 1533 Anesthesia Stop: 1638 Procedures: RIGHT LEG DEBRIDEMENT, IRRIGATION, (Right) WOUND CLOSURE DELAYED (Right) 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
--- OUTSIDE RECORDS SUMMARY | 2025-05-11 08:22 | XMS_ITS | Clinical Summary ---
Author Organization [facility] Address [address] [facility] [address] [place] [address] Phone Care Team Providers Care Heel Seat Sander Name Role Phone Unavailable Unavailable Conditions or Problems No information available. Medications No information available. Medications Administered No information available. Allergies, Adverse Reactions, Alerts No information available. Results No information available. Plan of Care No information available. Procedures No information available. Vital Signs No information available. Immunizations No information available. Advance Directives No information available.
--- OUTSIDE RECORDS SUMMARY | 2025-05-11 08:22 | XMS_ITS | Patient Health Record ---
[facility] [address] [address] [place] [id number] Care Team Providers Care Stave Inspector Name Role Phone Zeeshan Salazar Primary [...] W/U Status Risk Notes Problem Essential hypertension (18843790) HTN [Hypertension] (401.9) Active confirmed appears resolved Problem Hypothyroidism (40036596) Hypothyroidism NOS (244.9) Active confirmed Problem Hyperlipidemia (53825207) Hyperlipidemia (272.4) Active confirmed Problem Constipation (77125888) Constipation, unspecified constipation type (K59.00) Active confirmed Problem History of pulmonary embolism on long-term anticoagulation therapy (43672452881627885 ) Hx pulmonary embolism (Z86.711) Active confirmed Problem Long-term current use of anticoagulant (739144451) Current use of babysitter anticoagulation (Z79.01) Active confirmed Problem Adjustment disorder with anxious mood (75333987) Adjustment disorder with anxious mood (F43.22) Active confirmed Problem History of pulmonary embolus (588131134) History of pulmonary embolus (PE) (Z86.711) Active confirmed Problem Methicillin resistant Staphylococcus aureus infection (disorder) (906455784) Infection of wound due to methicillin resistant Staphylococcus aureus (MRSA) (A49.02) Active confirmed Problem Arthritis of knee (674358978) Arthritis of knee (M17.10) Active confirmed Problem Amputated below knee (428705131) 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
--- OUTSIDE RECORDS SUMMARY | 2025-05-11 08:25 | XMS_ITS | Encounter Summary ---
Author Organization Healthcare Address [address] [place] [address] Care Team Providers Care Property Handler Name Role Phone Unavailable Primary Care Provider Unavailabl e Encounter Details Date Type Department Care Team (Late st Contact Info) Description 07/20/2022 Lab Requisition [facility] [address] [place] [address] Sushil Dean MD [address] [place] [address] Encounter for general adult medical examination without [...]
--- OUTSIDE RECORDS SUMMARY | 2025-05-11 08:25 | XMS_ITS | Clinical Summary ---
Author Organization [facility] Address [address] [place] [address] Care Team Providers Care Radio Engineer Name Role Phone Provider, No Known [...] (Two) Times a Day. 60 capsule Active DAPTOmycin 800 mg in sodium chloride 0.9 % 50 mLIndications:S kin and Soft Tissue Infection Infuse 800 mg into a venous catheter Daily for 4 doses. Indications: Infection of the Skin and/or Soft Tissue 04/16/20 25 Active Problems Problem Noted Date Diagnosed Date Right BKA infection 04/04/2025 Encounters Date Type Department Care Team Description 04/08/2025 3:34 PM EDT Anesthesia Event [facility] OR [address] [place] [phone] Ulises Hoffman MD Wells, Jeremy B., MD 04/08/2025 2:45 PM EDT - 04/08/2025 4:04 PM EDT Surgery [facility] OR [address] [place] [phone] Sushil Dean Jr., MD LEG DEBRIDEMENT AND IRRIGATION 04/07/2025 8:36 PM EDT Anesthesia Event [facility] OR [address] [place] [phone] Luci Alonso DO 04/07/2025 6:00 PM EDT - 04/07/2025 6:52 PM EDT Surgery [facility] OR [address] [place] [phone] Sushil Dean Jr., MD LEG DEBRIDEMENT, IRRIGATION 04/04/2025 4:10 PM EDT - 04/11/2025 1:58 PM EDT Hospital Encounter [facility] [address] [place] [phone] Mario Crowley, Leonora Calderon MD Gay, Bryce, DO Varney, M Scott, [...] drink = 0.6 oz pur e alcohol) [employer] Answer Date Recorded In the past 12 months has [employer], gas, oil, or water [employer] threatened to shut off services in your [...] or training? Not on file Preferred Language British 04/07/2025 Sex and Gender Information Value Date [...] this topic Medical Devices Implanted Type Area [employer] In[employer] Device Identifier Shelf Expiration Date Model / Serial / Lot Dev Wnd/Cls Contrl Tiss Stratafix Spiral Pls Pds Ct1 0 22cm - [id number] Implanted:Qty: 1 on 04/08/2025 by Sushil Dean Jr., MD at [facility] Implant Right: Leg [employer] 12/07/2025 [id number] / / [id number] Procedures Procedure Name Priority [...] 3:4 0 PM EDT Right BKA infection RI SEC ABDOMINAL WALL SUTURE EVISCERATION/DEHSN 04/08/2025 3:20 [...] of8 resultswithin the time period is included. WBC 7.87 3.40 - 10.80 10*3/mm3 [facility] RBC 4.70 4.14 - 5.80 10*6/mm3 04/11/2025 4:02 AM [facility] Hemoglobin 12.8(L) 13.0 - 17.7 g/dL 04/11/2025 4:02 AM [facility] Hematocrit 40.5 37.5 - 51.0 % 04/11/2025 4:[facility] MCV 86.2 79.0 - [...] AM EDT [facility] Neutrophils, Absolute 4.69 1.70 - 7.00 10*3/mm3 04/11/2025 4:02 AM EDT [facility] Lymphocytes, Absolute 2.07 0.70 - 3.10 10*3/mm3 04/11/2025 4:02 AM EDT [facility] Monocytes, Absolute 0.73 0.10 - 0.90 10*3/mm3 04/11/2025 4:02 AM EDT [facility] Eosinophils, Absolute 0.32 0.00 - 0.40 10*3/mm3 04/11/2025 4:02 AM EDT [facility] Basophils, Absolute 0.03 0.00 - 0.20 10*3/mm3 04/11/2025 4:02 AM EDT [facility] Immature Grans, Absolute 0.03 0.00 - 0.05 10*3/mm3 04/11/2025 4:02 AM EDT [facility] nRBC 0.0 0.0 - 0.2 /100 WBC 04/11/2025 4:02 AM EDT [facility] Blood Venipuncture / Unknown 04/11/2025 3:40 AM EDT 04/11/2025 3:59 AM EDT us Sushil Dean Jr., MD LAB BLOOD ORDERABLES Fi nal Result [facility]
[address] [place] [address], * (ABNORMAL) Comprehensive Metabolic Panel (04/11/2025 3:40 AM EDT) Only the most recent of2 resultswithin the time period is included. [facility] Glucose 108(H) 65 - 99 mg/dL 04/11/2025 4:19 AM EDT [facility] BUN 12.5 6.0 - 20.0 mg/dL 04/11/2025 4:19 AM [facility] Creatinine 0.68(L) 0.76 [...] AM EDT 04/11/2025 3:56 AM EDT Narrative [facility] - 04/11/2025 4:19 AM EDT GFR [...] include race as a factor Rosario Hill HR LEADER LAB BLOOD ORDERABLES Final Result [facility]
[address] [place] [address], * Heparin Anti-Xa (04/10/2025 3:46 AM EDT) [...] R esult [facility]
[address] [place] [address], * (ABNORMAL) Basic Metabolic Panel (04/10/2025 3:46 AM EDT) Only the most recent of6 resultswithin the time period is included. Pathologist [facility] Glucose 125(H) 65 - 99 mg/dL 04/10/2025 [...] 113.2 >60.0 mL/min/1.7 3 04/10/2025 4:20 AM [facility] Blood Venipuncture / Unknown 04/10/2025 3:46 AM EDT 04/10/2025 3:52 AM EDT [facility] - 04/10/2025 4:20 AM EDT [...] Organization Address City/[facility] Co de Phone Number [facility]
[address] [place] [address], * Wound Culture - Swab, Leg, Right (04/08/2025 3:40 PM EDT) Only the most recent of3 resultswithin the time period is included. Wound Culture No growth at 3 days ALIZA 04/11/2025 10:40 AM EDT [facility] Gram Stain Few (2+) WBCs seen [...] Organization Address [facility] Co de Phone Number [facility]
[address] [place] [address], [facility]
[address] [place] [address], * Anaerobic Culture - Swab, Leg, Right (04/08/2025 3:40 PM EDT) Only the most recent of4 resultswithin the time period is included. Anaerobic Culture No anaerobes isolated at 5 days ALIZA 04/13/2025 7:24 AM EDT [facility] Swab Structure of right lower limb / Unknown 04/08/2025 3:40 PM EDT 04/08/2025 8:05 PM EDT Sushil Dean Jr., MD MICROBIOLOGY - GENERAL ORDERABLES Final Result Performing Organization Address City/[facility] Co de Phone Number [facility]
[address] [place] [address], * Scan Slide (04/08/2025 8:41 AM EDT) [...] Organization Address [facility] Co de Phone Number [facility]
[address] [place] [address], * FL C Arm During Surgery (04/07/2025 9:32 PM EDT) Narrative SYSTEMGENERATED, DOCUMENTATION - 04/07/2025 9:38 PM EDT This procedure was auto-finalized with no dictation required. Sushil Dean Jr., MD IMG FLUOROSCOPY ORDERAB LES Final Result * Tissue / Bone Culture - Tissue, Leg, Right (04/07/2025 9:13 PM EDT) Tissue Culture No growth at 3 days ALIZA 04/11/2025 10:36 AM EDT [facility] Gram Stain Rare (1+) WBCs seen 04/11/2025 10:36 AM EDT [facility] Gram Stain No organisms seen 04/11/2025 10:36 AM EDT [facility] Tissue Structure of right lower limb / Unknown 04/07/2025 9:13 PM EDT 04/08/2025 4:54 AM EDT us Sushil Dean Jr., MD MICROBIOLOGY - GENERAL ORDERABLES Final Result [facility]
[address] [place] [address], [place] [phone] [facility]
[address] [place] [address], [place] [phone] * BH AN ETT AIRWAY (04/07/2025 8:44 [...] [place] 04/07/2025 9:58 AM EDT Workstation ID: [id number] Narrative 04/07/2025 9:58 AM EDT MRI TIBIA [...] the soft tissues, as before. Procedure Note Migelt, Hugh Shelton MD - 04/07/2025 MRI TIBIA [...] [place] 04/07/2025 9:58 AM EDT Workstation ID: [id number] us Sushil Dean Jr., MD IM MRI ORDERABLES Mary Beth l Result * Potassium (04/06/2025 7:16 PM EDT) Potassium 4.0 3.5 - 5.2 mmol/L 04/06/2025 7:53 PM EDT [facility] Blood Venipuncture / Unknown 04/06/2025 7:16 PM EDT 04/06/2025 7:35 PM EDT Jason Álvraez DO LAB BLOOD ORDERABLES Final Resul t Performing Organization Address City/[facility]/ZIP Co de Phone Number [facility]
[address] [place] [address], * CK (04/05/2025 12:15 PM EDT) Creatine Kinase 140 20 - 200 U/L 04/05/2025 1:31 PM EDT [facility] Blood Venipuncture / Unknown 04/05/2025 12:15 PM EDT 04/05/2025 1:03 PM EDT Carlton Mead MD LAB BLOOD ORDERABLES Final R esult Performing Organization Address [facility] Co de Phone Number [facility]
[address] [place] [address], * (ABNORMAL) aPTT (04/05/2025 3:54 AM EDT) [...] Organization Address [facility] Co de Phone Number [facility]
[address] [place] [address], * (ABNORMAL) Protime-INR (04/05/2025 12:18 AM EDT) [facility] Protime 15.9(H) 12.2 - 15.3 Seconds 04/05/2025 12:53 AM EDT [facility] INR 1.19(H) 0.89 - 1.12 04/05/2025 12:53 AM EDT [facility] Blood Venipuncture / Unknown 04/05/2025 12:18 AM EDT 04/05/2025 12:37 AM EDT Una Perla PharmD LAB BLOOD ORDERABLES Final R esult Performing Organization Address [facility] Co de Phone Number [facility]
[address] [place] [address], * POC Creatinine (04/04/2025 2:49 PM EDT) [facility] Creatinine 1.10 0.60 - 1.30 mg/dL 04/07/2025 7:14 PM EDT [facility] Comment:Serial Number: [id number] 7Operator: [id number] Venous Blood 04/04/2025 2:49 PM EDT 04/07/2025 7:14 PM EDT Jason Álvarez DO POINT OF CARE TEST ORDERABLES Fi nal Result Performing Organization Address [facility] Co de Phone Number [facility]
[address] [place] [address], * (ABNORMAL) Sedimentation Rate (04/04/2025 2:47 PM EDT) [facility] Sed Rate 51(H) 0 - 15 mm/hr 04/04/2025 3:06 PM EDT [facility] Blood Venipuncture / Unknown 04/04/2025 2:47 PM EDT 04/04/2025 2:52 PM EDT Mario Ortiz [facility] LAB BLOOD ORDERABLES Fin al Result Performing Organization Address City/[facility]/ZIP Co de Phone Number [facility]
[address] [place] [address], * (ABNORMAL) C-reactive Protein (04/04/2025 2:47 PM EDT) C-Reactive Protein 8.57(H) 0.00 - 0.50 mg/dL 04/04/2025 3:26 PM EDT [facility] Blood Venipuncture / Unknown 04/04/2025 2:47 PM EDT 04/04/2025 2:52 PM EDT Mario Ortiz [facility] LAB BLOOD ORDERABLES Fin al Result Performing Organization Address City/[facility] de Phone Number [facility]
[address] [place] [address], from Last 3 Months Additional Health Concerns [...] Of Support Discussed With: Patient Care Teams Radio Engineer Relationship Specialty Start Date End Date Provider, [place] [address] PCP - General 05/09/23
--- OUTSIDE RECORDS SUMMARY | 2025-05-11 08:25 | XMS_ITS | Encounter Summary ---
Author Organization [facility] Address [address] [place] [address] Care Team Providers Care Bus And Rail Operator Name Role Phone Provider, No Known [...] 2:25 PM EDT Cherri Grimm RN * [place] Suicide Severity Rating Scale (Screener/Recent Self-Report) Question [...] documented as of this encounter Care Teams Bus And Rail Operator Relationship Specialty Start Date End Date Provider, No Known [facility] [place] [address] PCP - General 05/09/23 documented as of this encounter
--- OUTSIDE RECORDS SUMMARY | 2025-05-11 08:25 | XMS_ITS | Clinical Summary ---
Author Organization Healthcare Address [address] [place] [address] Care Team Providers Care Service Support Representative Name Role Phone Unavailable Primary Care [...]
--- OUTSIDE RECORDS SUMMARY | 2025-05-11 08:25 | XMS_ITS | Encounter Summary ---
Author Organization Healthcare Address [address] [place] [address] Care Team Providers Care Neon Technician Name Role Phone Unavailable Primary Care Provider Unavailabl e Encounter Details Date Type Department Care Team (Late st Contact Info) Description 07/20/2022 Lab Requisition [facility] [address] [place] [address] Sushil Dean MD [address] [place] [address] Encounter for general adult medical examination without [...] O RDERABLES Final Result Performing Organization Address City/[facility] Co de Phone Number [facility]ARE [facility] [address] [place] [address] * Bone Culture and Gram Stain (07/20/2022 [...] O RDERABLES Final Result Performing Organization Address City/[facility] Co de Phone Number [facility] [address] [place] [address] documented in this encounter Visit Diagnoses Diagnosis Encounter for general adult medical examination without abnormal findings documented in this encounter
--- OUTSIDE RECORDS SUMMARY | 2025-05-11 08:25 | XMS_ITS | Encounter Summary ---
Author Organization Healthcare Address [address] [place] [address] Care Team Providers Care Deli Worker Name Role Phone Unavailable Primary Care Provider Unavailabl e Encounter Details Date Type Department Care Team (Late st Contact Info) Description 08/12/2022 Lab Requisition [facility] [address] [place] [address] Sushil Dean MD [address] [place] [address] Encounter for general adult medical examination without [...] has been identified using the FDA Approved charity: [employer] [place] System The organism value for this [...] O ERIC Final Result Performing Organization Address City/[facility] de Phone Number [facility]ALTH[facility]ARE [facility] [address] [place] [address] * Bone Culture and Gram Stain (08/12/2022 [...] RDERABLES Final Result Performing Organization Address City/[facility] de Phone Number [facility] [address] [place] [address] documented in this encounter Visit Diagnoses Diagnosis Encounter for general adult medical examination without abnormal findings documented in this encounter
--- OUTSIDE RECORDS SUMMARY | 2025-05-11 08:25 | XMS_ITS | Encounter Summary ---
Author Organization Healthcare Address [address] [place] [address] Care Team Providers Care Tape Sewing Machine Operator Name Role Phone Unavailable Primary Care Provider Unavailabl e Encounter Details Date Type Department Care Team (Late st Contact Info) Description 05/17/2023 Lab Requisition [facility] [address] [place] [address] Sushil Dean MD [address] [facility] [address] [place] [address] Encounter for general adult medical examination without [...] O RDERABLES Final Result Performing Organization Address City/[facility] Co de Phone Number [facility] [address] [place] [address] * Bone Culture and Gram Stain (05/17/2023 [...] O RDERABLES Final Result Performing Organization Address [facility] Co de Phone Number [facility] [address] [place] [address] documented in this encounter Visit Diagnoses Diagnosis Encounter for general adult medical examination without abnormal findings documented in this encounter
--- OUTSIDE RECORDS SUMMARY | 2025-05-11 08:25 | XMS_ITS | Encounter Summary ---
Author Organization [facility] Address [address] [place] [address] Care Team Providers Care Intelligence Applications Name Role Phone Unavailable Primary Care Provider Unavailabl e Encounter Details Date Type Department Care Team (Late st Contact Info) Description 10/03/2022 Lab Requisition [facility] [address] [place] [address] Dalila Cox MD [address] [place], [place] [id number] Encounter for general adult medical examination without [...] Culture Neelima albicans(A) 10/05/2022 11:58 AM EDT [facility] Comment: This result was determined by MALDI tof Mass spectrometry. This assay was developed and its performance characteristics determined by [facility] as appropriate for clinical purposes. [...] Edited Result - Final [facility] [address] [place] [address] documented in this encounter Visit Diagnoses Diagnosis Encounter for general adult medical examination without abnormal findings documented in this encounter
--- OUTSIDE RECORDS SUMMARY | 2025-05-11 08:25 | XMS_ITS | Encounter Summary ---
Author Organization Healthcare Address [address] [place] [address] Care Team Providers Care Special Library Librarian Name Role Phone Unavailable Primary Care Provider Unavailabl e Encounter Details Date Type Department Care Team (Late st Contact Info) Description 10/01/2022 Lab Requisition [facility] [address] [place] [address] Sushil Dean MD [address] [place] [address] Encounter for general adult medical examination without [...] has been identified using the FDA Approved [place] System The organism value for this [...] 10/04/2022 2:17 PM EDT Refer to culture [id number] FOR SUSCEPTIBILITIES ON NEELIMA ALBICANS us Sushil Dean MD LAB MICROBIOLOGY - GENERAL O RDERABLES Final Result [facility] [address] [place] [id number] documented in this encounter Visit Diagnoses Diagnosis Encounter for general adult medical examination without abnormal findings documented in this encounter
--- OUTSIDE RECORDS SUMMARY | 2025-05-11 08:25 | XMS_ITS | Encounter Summary ---
Author Organization [facility] Address [address] [place] [address] Care Team Providers Care Credit Officer Name Role Phone Unavailable Primary Care Provider Unavailabl e Encounter Details Date Type Department Care Team (Late st Contact Info) Description 10/19/2022 Lab Requisition [facility] [address] [place] [address] Sushil Dean MD [address] [place] [address] Encounter for general adult medical examination without [...] by MALDI tof mass spectrometry using the ticketea database and is for research use only. The organism value for this result has been updated. These results have been appended to the previously preliminary verified report. Bone Specimen from bone / Unknown 10/19/2022 5:17 PM EDT 10/19/2022 9:49 PM EDT Sushil Dean MD LAB MICROBIOLOGY - GENERAL O RDERABLES Final Result Performing Organization Address [facility] de Phone Number [facility] [address] [place] [phone] * Bone Culture and Gram Stain (10/19/2022 5:17 PM EDT) Culture No growth at day 4 2022 8:14 AM EDT [facility] Gram Stain Result Few Polymorphonuclear leukocytes 10/23/2022 8:14 AM EDT [facility] Gram Stain Result No organisms seen 10/23/2022 8:14 AM EDT [facility] Bone Specimen from bone / Unknown 10/19/2022 5:17 PM EDT 10/19/2022 9:49 PM EDT Sushil Dean MD LAB MICROBIOLOGY - GENERAL O RDERAADDI Final Result Performing Organization Address [facility] Phone Number [facility] [address] [place] [phone] documented in this encounter Visit Diagnoses Diagnosis Encounter for general adult medical examination without abnormal findings documented in this encounter
--- OUTSIDE RECORDS SUMMARY | 2025-05-11 08:25 | XMS_ITS | Encounter Summary ---
Author Organization Healthcare Address [address] [place] [address] Care Team Providers Care Medical Diagnostic Radiographer Name Role Phone Unavailable Primary Care Provider Unavailabl e Encounter Details Date Type Department Care Team (Late st Contact Info) Description 05/13/2023 Lab Requisition [facility] [address] [place] [address] Sushil Dean MD [address] [facility] [place] [address] Encounter for general adult medical examination without [...] Result Performing Organization Address [facility] Co de Phone Number [facility] [address] [place] [address] * Anaerobic Culture (05/13/2023 9:17 AM EDT) Culture No growth at day 4 05/20/2023 10:35 AM EST [facility] Bone 05/13/2023 9:17 AM EDT 05/13/2023 1:25 PM EDT us Sushil Dean MD LAB MICROBIOLOGY - GENERAL O RDERABLES Final Result Performing Organization Address [facility] de Phone Number [facility] [address] [place] [address] * Bone Culture and Gram Stain (05/13/2023 [...] Result Performing Organization Address [facility] de Phone Number [facility] [address] [place] [address] documented in this encounter Visit Diagnoses Diagnosis Encounter for general adult medical examination without abnormal findings documented in this encounter
[2025-05-11] MEDS: DAPTOmycin 1,000 MG in 0.9 % SODIUM CHLORIDE 50 ML 100 MG IV (08:33)
== END 2025-05-11 09:10 | disposition home or self-care (01) ==
LOC: INF 08:21
PROVIDERS: PCP Nurse Practitioner Family; Visit Provider Internal Medicine Infectious Disease
DX: L03.115 Cellulitis of right lower limb (principal); L02.415 Cutaneous abscess of right lower limb; L30.9 Dermatitis, unspecified; D68.2 Hereditary deficiency of other clotting factors; I10 Essential (primary) hypertension; E78.5 Hyperlipidemia, unspecified; F39 Unspecified mood [affective] disorder
CPT/HCPCS: 96365; J0878

== ENCOUNTER 2025-05-12 08:17 | Outpatient (CLI) | payer MEDICARE, SELFPAY ==
--- OUTSIDE RECORDS SUMMARY | 2023-12-12 04:00 | XMS_ITS ---
Author Organization [facility] Address [address] [facility] 36 [facility] 2C YVON Sykes [phone] Care Team Providers Care Data Center Solutions Architect Name Role Phone Zeeshan Salazar Primary Care Provider [phone] Macario Burkett [phone] REASON FOR VISIT 6 Month Check Up Encounters Encounter Location Date Provider Diagnosis [facility] [address] [facility] [address] [place] Sykes [phone] 12/12/2023 Macario Burkett Plan Of Treatment No Information Progress Notes * Won MEDRANO ZeeshanDOB: [birth year] (44 yo M)Acc No.[id number]:12/12/2023 Progress Notes Patient: Won SPANN Provider: Colleen Burkett M.D. :1980 A ge:43 Y S ex:Male Date:12/12/2023 Address:[address] [place] [address] Onel THACKER [id number] Pcp:Zeeshan Salazar Subjective: * Chief Complaints: * 1 . 6 Month Check Up. * Medical History: Objective: * Vitals: Assessment: Plan: * Treatment: * Images: Billing Information: * Visit Code: * Procedure Codes: * Electronic signature of Micaela Burkett MD on 05/12/2025 at 08:22 AM EST Sign off status: Pending * Provider: Colleen Burkett M.D. Date: 12/12/2023 Generated for Nany jorgensen/Elaine/Lisbethitting on: 07/12/2024 08:22 AM EST
--- OUTSIDE RECORDS SUMMARY | 2025-04-04 15:10 | XMS_ITS | Encounter Summary ---
Author Organization [facility] Address [address] [place] [address] Care Team Providers Care Ladies' Locker Room Attendant Name Role Phone Provider, No Known Primary Care Provider Unavail able Reason for Visit * Reason Comments Leg Swelling * Auth/Cert Specialty Diagnoses / Procedures Referred By Contlevy t Referred To Contact Diagnoses Right BKA infection Referral ID Status Reason Start Date Expiration Date Visits Re quested Visits Authorized [id number] 1 1 Encounter Details Date Type Department Care Team (Late st Contact Info) Description 04/04/2025 4:10 PM EDT - 04/11/2025 1:58 PM EDT Hospital Encounter [address] [place] [address] Mario Crowley, [address] [place] [address] Leonora Shepherd MD [address] [address] Jason Álvarez DO [address] [address] Jadyn Richardson DO [address] [address] Cellulitis of right lower extremity (Primary Dx); Below-knee amputation of right lower extremity, initial encounter; Right BKA infection Discharge Disposition: Home or Self Care Social History Tobacco Use Types Packs/Day Years Used Date Smoking Tobacco: Never Smokeless Tobacco: Never Tobacco Cessation:Counseling Given: Not Answered Alcohol Use Standard Drinks/Week Comments Not Currently 0 (1 standard drink = 0.6 oz pur e alcohol) [facility] Utilities Answer Date Recorded In the past 12 months has th e [employer], gas, oil, or water company threatened to [...] or training? Not on file Preferred Language Bermudian 04/07/2025 Sex and Gender Information Value Date [...] 2:25 PM EDT Cherri Grimm RN * [place] Suicide Severity Rating Scale (Screener/Recent Self-Report) Question [...] from the original note were not included. [facility] DISCHARGE SUMMARY Patient Name: Won [...] Date/Time Wound Culture - Swab, Leg, Right [[id number]] (Abnormal) (Susceptibility) Collected: 04/07/252106 Lab Status: Final [...] Units Date/Time FL C Arm During Surgery [[id number]] Resulted: 04/07/252137 Updated: 04/07/252137 Narrative: This procedure was auto-finalized with no dictation required. MRI Tibia Fibula Right With & Without Contrast [[id number]] Collected: 04/07/25 0938 Updated: 04/07/25 1001 Narrative: [...] Buenrostro 04/07/2025 9:58 AM EDT Workstation ID: [id number] MRI Tibia Fibula Right With & Without Contrast [[id number]] Collected: 04/04/252256 Updated: 04/04/252302 Narrative: MRI TIBIA [...] represent a small area of phlegmonous change (vlkcde46 image 10) measuring approximately 1.6 cm which [...] MD 04/04/2025 11:00 PM EDT Workstation ID: [id number] Pending Labs Order Current Status Fungus Culture [...] FLOMAX 1 capsule, Nightly Stop These Medications [facility] Digestive [facility] capsule doxycycline 100 MG tablet Commonly known [...] Male) Date of 1980 Social Security Number [id number] [place] [address] Ep[employer]opalian Unknown Marital Status Unknown Admission Date 04/04/2025 Admission Type Emergency Admitting Provider Jadyn Richardson DO Attending Provider Jadyn Richardson DO Department, Room/Bed [address], S565/1 Discharge Date Discharge Disposition Discharge [...] Group [place] [id number] Payor Plan Address Payor Plan Phone Number Payor Plan Fax Number Effective Dates [employer] [address] [address] 08/10/2023 - None Entered [place] [address] Subscriber Name Subscriber Date Member ID WON DENNIS 1980 [id number] Emergency Contacts Solar Crew Member (Rel.) Home Phone Work Phone Mobile Phone Avril Dennis (Spouse) -- -- [phone] LewRobert (Relative) -- -- [phone] [facility] [address] Patient: ROOM: [facility] Won Dennis [address] [facility] [address] : 1980 SSN: [id number] Sex: M PCP: Provider, No Known Emergency Contact Information Name Relation Home Work Mobile Avril Dennis Spouse [phone] Other Contacts Name Relation Home Work Mobile Robert Hackett Relative [phone] INSURANCE PA[employer]OR [employer]AN [employer] # SUBSCRIBER ID Primary: Secondary: MEDICARE [employer]ICA[place] [id number] Admitting Diagnosis: 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] Order Date: Apr 09, 2025 Case Management Swager Operator Consult (Order ID: [id number]) Diagnosis: Priority: Routine Expected Date: Expiration Date: Interval: Once Count: Comments: Outpatient orders: 1. Outpatient intravenous antibiotic therapy: Daptomycin 800 mg IV daily to be supplied by [facility] 2. Home health to perform [...] INFECTIOUS DISEASE Progress Note Won Dennis 1980 [id number] Date of Consult: 04/10/2025 Admission Date: 04/04/2025 [...] which prompted him to seek treatment at [facility]. He is known to Dr. Dean. [...] wound 05/09/25. HDS, on Heparin gtt. Currently [facility] has been asked to manage [...] Jr., MD, 20 mg at 04/09/25906 heparin 19618 units/250 mL (100 units/mL) in 0.45 % [...] Units Date/Time FL C Arm During Surgery [[id number]] Resulted: 04/07/252137 Updated: 04/07/252137 Narrative: This procedure was auto-finalized with no dictation required. MRI Tibia Fibula Right With & Without Contrast [[id number]] Collected: 04/07/25 0938 Updated: 04/07/25 1001 Narrative: [...] Chitra 04/07/2025 9:58 AM EDT Workstation ID: [id number] Impression: Recurrent Right BKA stump abscess/cellulitis- this [...] discussed his disposition with the pharmacist at [facility] today. I will sign off Outpatient orders: 1. Outpatient intravenous antibiotic therapy: Daptomycin 800 mg IV daily to be supplied by [facility] 2. Home health to perform weekly PICC [...] Time: 04/10/251323 Signed Expand All Collapse All [facility] PROGRESS NOTE Patient Name: Won [...] Date/Time Wound Culture - Swab, Leg, Right [[id number]] (Abnormal) (Susceptibility) Collected: 04/07/252106 Lab Status: Final [...] Row Name 04/06/25 1143 Sit-Stand Transfer Sit-Stand Victoria (Transfers) modified independence -LM Comment, (Sit-Stand Transfer) Pt stood from recliner. Not holding onto walker, pt able to pull his pants up while balancing on his one leg. -LM Row Name 04/06/25 1143 Gait/Stairs (Locomotion) Victoria Level (Gait) modified independence -LM Distance in [...] Nurse Physical Therapy Education Title: PT OT SENIOR MANAGER CREATIVE SERVICES Therapies (Done) Topic: Physical Therapy (Done) Point: [...] Cosigned By Initials Name Provider Type Susan Caavzos, PT Physical Therapist Therapy Charges for Today Code Description Service Date Service Provider Modifiers Qty [id number] PT EVAL LOW COMPLEXITY 3 04/06/2025 Susan [...] mg Daily 04/05/2025 -- Route: Oral heparin 22977 units/250 mL (100 units/mL) in 0.45 % [...] -- Admin Instructions: Open Order & [facility] Electrolyte Replacement Protocol Algorithm to View [...] Dean MD April 21 vs April 22 [facility] [address], [address] [facility], [address] Please schedule at [phone] VONDA Garcia 04/11/25 08:32 EDT Cosigned by Sushil Dean Jr., MD at 04/19/2025 10:33 AM EDT Associated attestation - Sushil Dean Jr., MD - 04/19/2025 10:33 AM EDT I have reviewed this documentation and agree. * Rosario Hill APRN - 04/10/2025 1:24 PM EDT Images from the original note were not included. [facility] PROGRESS NOTE Patient Name: Won [...] Date/Time Wound Culture - Swab, Leg, Right [[id number]] (Abnormal) (Susceptibility) Collected: 04/07/252106 Lab Status: Final [...] mg Daily 04/05/2025 -- Route: Oral heparin 73818 units/250 mL (100 units/mL) in 0.45 % [...] -- Admin Instructions: Open Order & [facility] Electrolyte Replacement Protocol Algorithm to View [...] -- Admin Instructions: Open Order & [facility] Electrolyte Replacement Protocol Algorithm to View [...] -- Admin Instructions: Open Order & [facility] Electrolyte Replacement Protocol Algorithm to View [...] Dean MD April 21 vs April 22 [facility] [address], [address] [facility], [address] Please schedule at [phone] VONDA Garcia 04/10/25 09:01 EDT Cosigned by Sushil Dean Jr., MD at 04/19/2025 10:33 AM EDT Associated attestation - Sushil Dean Jr., MD - 04/19/2025 10:33 AM EDT I have reviewed this documentation and agree. * Carlton Mead MD - 04/10/2025 7:38 AM EDT Images from the original note were not included. INFECTIOUS DISEASE Progress Note Won Dennis 1980 [id number] Date of Consult: 04/10/2025 Admission Date: 04/04/2025 [...] which prompted him to seek treatment at [facility]. He is known to Dr. Dean. [...] wound 05/09/25. HDS, on Heparin gtt. Currently [facility] has been asked to manage [...] 2 puff, Inhalation, BID - RT, Sushil Dena Jr., MD, 2 puff at 04/09/25 194 [...] Jr., MD, 20 mg at 04/09/25906 heparin 13469 units/250 mL (100 units/mL) in 0.45 % [...] vancomycin 2750 mg/500 mL 0.9% NS IVPB ([facility]) Ordering Provider: Mario Crowley, DO 20 [...] Units Date/Time FL C Arm During Surgery [[id number]] Resulted: 04/07/252137 Updated: 04/07/252137 Narrative: This procedure was auto-finalized with no dictation required. MRI Tibia Fibula Right With & Without Contrast [[id number]] Collected: 04/07/25 0938 Updated: 04/07/25 1001 Narrative: [...] Buenrostro 04/07/2025 9:58 AM EDT Workstation ID: [id number] Impression: Recurrent Right BKA stump abscess/cellulitis- this [...] discussed his disposition with the pharmacist at [facility] today. I will sign off Outpatient orders: 1. Outpatient intravenous antibiotic therapy: Daptomycin 800 mg IV daily to be supplied by [facility] 2. Home health to perform weekly PICC [...] MD 04/10/2025 07:38 EDT * Yaya Hamiltonn, [facility] - 04/10/2025 7:17 AM EDT Pharmacy [...] from the original note were not included. [facility] PROGRESS NOTE Patient Name: Won [...] Date/Time Wound Culture - Swab, Leg, Right [[id number]] (Abnormal) Collected: 04/07/252106 Lab Status: Preliminary result [...] Jason DO Preeti 04/09/25 * Larisa Hamilton [facility] - 04/09/2025 11:36 AM EDT Pharmacy [...] mg Daily 04/05/2025 -- Route: Oral heparin 49752 units/250 mL (100 units/mL) in 0.45 % [...] -- Admin Instructions: Open Order & [facility] Electrolyte Replacement Protocol Algorithm to View [...] -- Admin Instructions: Open Order & [facility] Electrolyte Replacement Protocol Algorithm to View [...] -- Admin Instructions: Open Order & [facility] Electrolyte Replacement Protocol Algorithm to View [...] in 2 weeks for incision check, radiographs [facility] [address], [address] [facility], [address] Please schedule at [phone] VONDA Garcia 04/09/25 09:18 EDT Cosigned by Sushil Dean Jr., MD at 04/19/2025 10:33 AM EDT Associated attestation - Sushil Dean Jr., MD - 04/19/2025 10:33 AM EDT I have reviewed this documentation and agree. * Carlton Mead MD - 04/09/2025 8:25 AM EDT Images from the original note were not included. INFECTIOUS DISEASE Progress Note Won Dennis 1980 [id number] Date of Consult: 04/09/2025 Admission Date: 04/04/2025 [...] which prompted him to seek treatment at [facility]. He is known to Dr. Dean. [...] wound 05/09/25. HDS, on Heparin gtt. Currently [facility] has been asked to manage [...] IRRIGATION; Surgeon: Sushil Dean Jr., MD; Location: [facility] OR; Service: Orthopedics; Laterality: Right; PLACEMENT OF WOUND VAC Right 04/07/2025 Procedure: WOUND VACUUM ASSISTED CLOSURE; Surgeon: Sushil Dean Jr., MD; Location: [facility] OR; Service: Orthopedics; Laterality: Right; History reviewed. [...] MD, 20 mg at 04/08/25 0800 heparin 74755 units/250 mL (100 units/mL) in 0.45 % [...] Units Date/Time FL C Arm During Surgery [[id number]] Resulted: 04/07/252137 Updated: 04/07/252137 Narrative: This procedure was auto-finalized with no dictation required. MRI Tibia Fibula Right With & Without Contrast [[id number]] Collected: 04/07/2538 Updated: 04/07/25 1001 Narrative: MRI [...] Buenrostro 04/07/2025 9:58 AM EDT Workstation ID: [id number] Impression: Recurrent Right BKA stump abscess/cellulitis- this [...] mg IV daily to be supplied by [facility] 2. Home health to perform [...] from the original note were not included. [facility] PROGRESS NOTE Patient Name: Won [...] Buenrostro 04/07/2025 9:58 AM EDT Workstation ID: [id number] I have personally reviewed the therapy plans: [...] Jason Álvarez DO 04/08/25 * Larisa Hamilton [facility] - 04/08/2025 11:48 AM EDT Pharmacy [...] -- Admin Instructions: Open Order & [facility] Electrolyte Replacement Protocol Algorithm to View [...] mg Daily 04/05/2025 -- Route: Oral heparin 78671 units/250 mL (100 units/mL) in 0.45 % [...] -- Admin Instructions: Open Order & [facility] Electrolyte Replacement Protocol Algorithm to View [...] -- Admin Instructions: Open Order & [facility] Electrolyte Replacement Protocol Algorithm to View [...] -- Admin Instructions: Open Order & [facility] Electrolyte Replacement Protocol Algorithm to View [...] INFECTIOUS DISEASE Progress Note Won Dennis 1980 [id number] Date of Consult: 04/08/2025 Admission Date: 04/04/2025 [...] which prompted him to seek treatment at [facility]. He is known to Dr. Dean. [...] wound 05/09/25. HDS, on Heparin gtt. Currently [facility] has been asked to manage [...] IRRIGATION; Surgeon: Sushil Dean Jr., MD; Location: [facility] OR; Service: Orthopedics; Laterality: Right; PLACEMENT OF WOUND VAC Right 04/07/2025 Procedure: WOUND VACUUM ASSISTED CLOSURE; Surgeon: Sushil Dean Jr., MD; Location: [facility] OR; Service: Orthopedics; Laterality: Right; History reviewed. [...] Driven Protocol, , Not Applicable, PRN, Sushil eDan Jr., MD cefTRIAXone (ROCEPHIN) 2,000 mg in [...] Jr., MD, 20 mg at 04/07/25950 heparin 19971 units/250 mL (100 units/mL) in 0.45 % [...] Units Date/Time FL C Arm During Surgery [[id number]] Resulted: 04/07/252137 Updated: 04/07/252137 Narrative: This procedure was auto-finalized with no dictation required. 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 (Treated by ID in [place] Dr. Harris). Dr. Torres treated him with [...] from the original note were not included. [facility] PROGRESS NOTE Patient Name: Won [...] Buenrostro 04/07/2025 9:58 AM EDT Workstation ID: [id number] I have personally reviewed the therapy plans: [...] Jason Álvarez DO 04/07/25 * Larisa Hamilton [facility] - 04/07/2025 11:56 AM EDT Pharmacy [...] INFECTIOUS DISEASE Progress Note Won Dennis 1980 [id number] Date of Consult: 04/07/2025 Admission Date: 04/04/2025 [...] which prompted him to seek treatment at [facility]. He is known to Dr. Dean. [...] wound 05/09/25. HDS, on Heparin gtt. Currently [facility] has been asked to manage [...] Application, 1 Application, Topical, Q12H, Ayah Valentin, TUNGSTEN TENDER, 1 Application at 04/06/252101 DAPTOmycin (CUBICIN) 800 [...] Shepherd MD, 20 mg at 04/06/25899 heparin 36431 units/250 mL (100 units/mL) in 0.45 % NaCl infusion, 18 Units/kg/hr, Intravenous, Titrated, Cherri Beatty, [facility], Last Rate: 24.1 mL/hr at 04/07/258, [...] With & Without Contrast - In process [[id number]] Resulted: 04/07/25828 Updated: 04/07/25828 This result has not been signed. Information might be incomplete. 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 (Treated by ID in [place] Dr. Harris). Dr. Torres treated him with [...] mg Daily 04/05/2025 -- Route: Oral heparin 65259 units/250 mL (100 units/mL) in 0.45 % [...] -- Admin Instructions: Open Order & [facility] Electrolyte Replacement Protocol Algorithm to View [...] -- Admin Instructions: Open Order & [facility] Electrolyte Replacement Protocol Algorithm to View [...] MD 04/07/25 06:07 EDT * Cherri Beatty [facility] - 04/06/2025 1:47 PM EDT Pharmacy [...] from the original note were not included. [facility] PROGRESS NOTE Patient Name: Won [...] MD 04/04/2025 11:00 PM EDT Workstation ID: [id number] I have personally reviewed the therapy plans: [...] mg Daily 04/05/2025 -- Route: Oral heparin 78624 units/250 mL (100 units/mL) in 0.45 % [...] -- Admin Instructions: Open Order & [facility] Electrolyte Replacement Protocol Algorithm to View [...] INFECTIOUS DISEASE follow up. Won Dennis 1980 [id number] Date of Consult: 04/06/2025 Admission Date: 04/04/2025 [...] which prompted him to seek treatment at [facility]. He is known to Dr. Dean. [...] wound 05/09/25. HDS, on Heparin gtt. Currently [facility] has been asked to manage [...] Application, 1 Application, Topical, Q12H, Ayah Valentin, TUNGSTEN TENDER, 1 Application at 04/06/25 0859 DAPTOmycin (CUBICIN) [...] MD, 20 mg at 04/06/25 0900 heparin 35749 units/250 mL (100 units/mL) in 0.45 % NaCl infusion, 18 Units/kg/hr, Intravenous, Titrated, Cherri Beatty [facility], Last Rate: 24.1 mL/hr at 04/06/25 [...] Tibia Fibula Right With & Without Contrast [[id number]] Collected: 04/04/252256 Updated: 04/04/252302 Narrative: MRI TIBIA [...] represent a small area of phlegmonous change ([id number] image 10) measuring approximately 1.6 cm which [...] MD 04/04/2025 11:00 PM EDT Workstation ID: [id number] Impression: 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 (Treated by ID in [place] Dr. Harris). Dr. Torres treated him with [...] MD 04/06/2025 16:00 EDT * Cherri Beatty, [facility] - 04/05/2025 3:01 PM EDT Pharmacy [...] from the original note were not included. [facility] PROGRESS NOTE Patient Name: Wno Dennis : 1980 Date of Admission: 04/04/2025 [...] MD 04/04/2025 11:00 PM EDT Workstation ID: [id number] I have personally reviewed the therapy plans: [...] from the original note were not included. [facility] HISTORY AND PHYSICAL Patient Name: [...] MD 04/04/2025 11:00 PM EDT Workstation ID: [id number] Assessment & Plan Assessment & Plan Won [...] 4FR PICC placed by Rhoda Bonner RN [facility], tip verified by 3CG see LDA. * Sushil Dean Jr., MD - 04/05/2025 8:07 AM EDTAssociated Order(s): IP CONSULT TO ORTHOPEDIC SURGERY [facility], [facility] [address] [address] Orthopedic Consult Patient: Won Dennis Date of Admission: 04/04/2025 4:10 PM Date of : 1980 Attending Physician: Jason Álvarez DO Consulting Physician: Sushil Dean Jr, MD Chief Complaint: 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 male admitted to [facility] with 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]. He [...] was evaluated in the emergency department in [place], was discharged with instructions for follow-up. He [...] tablet by mouth Daily. 04/03/2025 Morning Lactobacillus-Inulin ([facility] Get-n-Post) capsule Take 200 mg by mouth Daily. [...] MD 04/04/2025 11:00 PM EDT Workstation ID: [id number] Assessment: Right BKA infection 44-year-old male with [...] DISEASE CONSULT/INITIAL HOSPITAL VISIT Won Dennis 1980 [id number] Date of Consult: 04/05/2025 Admission Date: 04/04/2025 [...] which prompted him to seek treatment at [facility]. He is known to Dr. Dean. [...] wound 05/09/25. HDS, on Heparin gtt. Currently [facility] has been asked to manage [...] Leonora Shepherd MD, 40 mg at 04/04/25 6009 sennosides-docusate (PERICOLACE) 8.6-50 MG per tablet 2 [...] MD, 20 mg at 04/05/25 0916 heparin 43876 units/250 mL (100 units/mL) in 0.45 % [...] infusion 40 mL, 40 mL, Intravenous, PRN, Loenora Shepherd MD tamsulosin (FLOMAX) 24 hr capsule [...] Tibia Fibula Right With & Without Contrast [[id number]] Collected: 04/04/252256 Updated: 04/04/252302 Narrative: MRI TIBIA [...] represent a small area of phlegmonous change ([id number] image 10) measuring approximately 1.6 cm which [...] MD 04/04/2025 11:00 PM EDT Workstation ID: [id number] Impression: 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 (Treated by ID in [place] Dr. Harris). Dr. Torres treated him with [...] Jr., MD - 04/08/2025 3:51 PM EDT [facility] OPERATIVE REPORT PATIENT NAME: Won Dennis DATE OF : 1980 PREOP DIAGNOSIS: Right Right below-knee amputation infection POSTOP DIAGNOSIS: Same. PROCEDURE: Right Right 92791: Secondary closure below-knee amputation SURGEON: Sushil Dean MD OPERATIVE TEAM: Culinary Specialist: Susi Grullon RN Scrub Person: Mary Paredes Scrub Person Extra: Hortencia Toribio Other: Katt Gotti RN; Charis Neville RN ANESTHETIST: Anesthesiologist: Ulises Hoffman MD MANNEQUIN MOLDER: Stan Casillas CRNA Student Nurse Egg Producer: Karol Albert SRNA ANESTHESIA: Choice ESTIMATED BLOOD [...] CULTURE (Canceled) Sushil Dean Jr., MD 04/08/25 5965 Description: RIGHT LEG DEEP WOUND FOR CULTURE [...] Jr., MD - 04/07/2025 9:03 PM EDT [facility] [address] [address] OPERATIVE REPORT PATIENT NAME: Won Dennis DATE OF : 1980 PREOP DIAGNOSIS: Right Right below knee amputation stump infection POSTOP DIAGNOSIS: Same. PROCEDURE: Right Right 46239: Incision and drainage of surgical site infection 94046: Debridement of skin, subcutaneous tissue, muscle 62081: Wound vacuum-assisted closure SURGEON: Sushil Dean MD OPERATIVE TEAM: Culinary Specialist: Anum Sanchez RN Scrub Person: Hortencia Toribio; Gerald Ivey CAR SALESPERSON: Anesthesiologist: Luci Alonso DO ANESTHESIA: General ESTIMATED [...] ago swellling of the area. seen at [facility] yesterday for CT and US, here [...] this chart in the absence of a client administrator. No orders to display RADIOLOGY: [x] Radiologist's [...] 04/11/2025 1:30 PM EDT Continued Stay Note [place] Patient Name: Won Dennis Today's Date: 04/11/2025 Admit Date: 04/04/2025 Plan: Home with outpatient infusion. Discharge Plan Row Name 04/11/25 1155 Plan Plan Home with outpatient infusion. Final Discharge Disposition Code 01 - home or self-care Final Note Patient discharging today. He is discharging home with outpatient infusion at [facility]. He has an appointment with [facility] at 8:00 am tomorrow. They will do PICC line dressing changes. DEBRA has spoke with Dena at [facility] today multiple times to get setup [...] to get IV ABX at home with [facility]; however, Medicaid lapsed on 04/08. DEBRA was unaware until this morning that Medicaid has lapsed. Patient explained that he has Medicare A and B. CM spoke with KELLEE and given themhis Medicare number [id number], she sent it to Admission. DEBRA spoke with Kerri, with [facility], and explained that he had Medicare A and B. However, it will not cover home infusion. It will be $64.00 a day out of packet. Patients can go to the Infusion center at [facility], and it will cover the cost as an outpatient. He will need to go there every day for infusion. They will be able to do the patients' PICC line dressing changes and lab work. CM called [facility] they can accept patient and start him. He is known for their facility. The Facility will need to run it through his insurance first. CM faxed the orders over to [facility] at [phone]. CM will follow up with them tomorrow at [facility] to make sure they received the [...] with patient at bedside today. [facility]. Patient getting PICC line [...] note were not included. Discharge Planning Assessment [place] Patient Name: Won Dennis Today's Date: 04/07/2025 [...] with family Patient/Family Anticipated Services at [facility] case managertechnical manager [employer] Anticipated family or friend will provide Discharge Needs Assessment Equipment Currently Used at Home glucometer;shower chair;pulse ox;bp cuff;prosthesis;crutches Equipment Needed After Discharge none Discharge Plan Row Name 04/07/25 1144 Plan Plan Home Patient/Family in Agreement with Plan yes Plan Comments CM spoke with patient at bedside today. Patient lives with and his 5 kids in [facility]. 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 He has walker, cane, shower chair, and crutches. He requested a wheelchair for home. CM will order wheelchair through [facility]. He is not current with home health services. PCP is Dr. Jordan. Insurance is [facility] Medicaid [place]. Patient discharge plan is home with priavte transport. CM will follow for any discharge needs. Final Discharge Disposition Code 01 - home or self-care Continued Care and Services - Admitted Since 04/04/2025 No active coordination exists. Demographic Summary Row Name 04/07/25 1143 General Information Arrived From hospital Preferred Language Bermudian Functional Status Row Name 04/07/25 1143 Functional [...] 3:4 0 PM EDT Right BKA infection AK SEC ABDOMINAL WALL SUTURE EVISCERATION/DEHSN 04/08/2025 3:20 [...] CBC Auto Differential (04/11/2025 3:40 AM EDT) [facility] WBC 7.87 3.40 - 10.80 10*3/mm3 04/11/2025 4:02 AM EDT [facility] RBC 4.70 4.14 - 5.80 10*6/mm3 04/11/2025 4:02 AM EDT [facility] Hemoglobin 12.8(L) 13.0 - 17.7 g/dL 04/11/2025 4:02 AM EDT [facility] Hematocrit 40.5 37.5 - 51.0 % 04/11/2025 4:02 AM EDT [facility] MCV 86.2 79.0 - 97.0 fL 04/11/2025 4:02 AM EDT [facility] MCH 27.2 26.6 - 33.0 pg 04/11/2025 4:02 AM EDT [facility] MCHC 31.6 31.5 - 35.7 g/dL 04/11/2025 4:02 AM EDT [facility] RDW 12.9 12.3 - 15.4 % 04/11/2025 4:02 AM EDT [facility] RDW-SD 40.5 37.0 - 54.0 fl 04/11/2025 4:02 AM EDT [facility] MPV 9.2 6.0 - 12.0 fL 04/11/2025 4:02 AM EDT [facility] Platelets 267 140 - 450 10*3/mm3 04/11/2025 4:02 AM [facility] Neutrophil % 59.5 42.7 - 76.0 % 04/11/2025 4:02 AM [facility] Lymphocyte % 26.3 19.6 - 45.3 % 04/11/2025 4:02 AM [facility] Monocyte % 9.3 5.0 - 12.0 % 04/11/2025 4:02 AM [facility] Eosinophil % 4.1 0.3 - 6.2 % 04/11/2025 4:02 AM [facility] Basophil % 0.4 0.0 - 1.5 % 04/11/2025 4:02 AM [facility] Immature Grans % 0.4 0.0 - 0.5 % 04/11/2025 4:02 AM [facility] Neutrophils, Absolute 4.69 1.70 - 7.00 10*3/mm3 04/11/2025 4:02 AM [facility] Lymphocytes, Absolute 2.07 0.70 - 3.10 10*3/mm3 04/11/2025 4:02 AM [facility] Monocytes, Absolute 0.73 0.10 - 0.90 10*3/mm3 04/11/2025 4:02 AM [facility] Eosinophils, Absolute 0.32 0.00 - 0.40 10*3/mm3 04/11/2025 4:02 AM [facility] Basophils, Absolute 0.03 0.00 - 0.20 10*3/mm3 04/11/2025 4:02 AM [facility] Immature Grans, Absolute 0.03 0.00 - 0.05 10*3/mm3 04/11/2025 4:02 AM [facility] nRBC 0.0 0.0 - 0.2 /100 WBC 04/11/2025 4:02 AM [facility] Blood Venipuncture / Unknown 04/11/2025 3:40 AM EDT 04/11/2025 3:59 AM EDT us Sushil Dean Jr., MD LAB BLOOD ORDERABLES Fi nal Result [facility]
[address] [place] [address], * (ABNORMAL) Comprehensive Metabolic Panel (04/11/2025 3:40 AM EDT) Glucose 108(H) 65 - 99 mg/dL 04/11/2025 4:19 AM EDT [facility] BUN 12.5 6.0 - 20.0 mg/dL 04/11/2025 4:19 AM EDT [facility] Creatinine 0.68(L) 0.76 - 1.27 mg/dL 04/11/2025 4:19 AM EDT [facility] Sodium 140 136 - 145 mmol/L 04/11/2025 4:19 AM EDT [facility] Potassium 3.8 3.5 - 5.2 mmol/L 04/11/2025 4:19 AM EDT [facility] Chloride 105 98 - 107 mmol/L 04/11/2025 4:19 AM EDT [facility] CO2 28.2 22.0 - 29.0 mmol/L 04/11/2025 4:19 AM EDT [facility] Calcium 8.2(L) 8.6 - 10.5 mg/dL 04/11/2025 4:19 AM EDT [facility] Total Protein 6.1 6.0 - 8.5 g/dL 04/11/2025 4:19 AM EDT [facility] Albumin 3.1(L) 3.5 - 5.2 g/dL 04/11/2025 4:19 AM EDT [facility] ALT (SGPT) 52(H) 1 - 41 U/L 04/11/2025 4:19 AM EDT [facility] AST (SGOT) 40 1 - 40 U/L 04/11/2025 4:19 AM EDT [facility] Alkaline Phosphatase 99 39 - 117 U/L 04/11/2025 4:19 AM EDT [facility] Total Bilirubin 0.2 0.0 - 1.2 mg/dL 04/11/2025 4:19 AM EDT [facility] Globulin 3.0 gm/dL 04/11/2025 4:19 AM EDT [facility] Comment:Calculated Result A/G Ratio 1.0 g/dL 04/11/2025 4:19 AM EDT [facility] BUN/Creatinine Ratio 18.4 7.0 - 25.0 04/11/2025 4:19 AM EDT [facility] Anion Gap 6.8 5.0 - 15.0 mmol/L 04/11/2025 4:19 AM EDT [facility] eGFR 117.5 >60.0 mL/min/1.7 3 04/11/2025 4:19 AM EDT [facility] Blood Venipuncture / Unknown 04/11/2025 3:40 AM EDT 04/11/2025 3:56 AM EDT [facility] - 04/11/2025 4:19 AM EDT GFR [...] Hill APRN LAB BLOOD ORDERABLES Final Result [facility]
[address] [place] [address], * (ABNORMAL) CBC Auto Differential (04/10/2025 3:46 AM EDT) [facility] WBC 9.60 3.40 - 10.80 10*3/mm3 04/10/2025 3:56 AM EDT [facility] RBC 4.67 4.14 - 5.80 10*6/mm3 04/10/2025 3[facility] Hemoglobin 12.9(L) 13.0 - 17.7 g/dL 04/10/2025 3:56 AM EDT [facility] Hematocrit 40.1 37.5 - 51.0 % 04/10/2025 3:56 [facility] MCV 85.9 79.0 - 97.0 fL 04/10/2025 3:56 [facility] MCH 27.6 26.6 - 33.0 pg 04/10/2025 3:56 AM [facility] MCHC 32.2 31.5 - 35.7 g/dL 04/10/2025 3:56 [facility] RDW 12.9 12.3 - 15.4 % 04/10/2025 3:56 AM [facility] RDW-SD 40.5 37.0 - 54.0 fl 04/10/2025 3:56 AM [facility] MPV 9.5 6.0 - 12.0 fL 04/10/2025 3:56 AM [facility] Platelets 227 140 - 450 10*3/mm3 04/10/2025 3:56 AM EDT [facility] Neutrophil % 59.1 42.7 - 76.0 % 04/10/2025 3:56 [facility] Lymphocyte % 29.0 19.6 - 45.3 % 04/10/2025 3:56 AM [facility] Monocyte % 8.1 5.0 - 12.0 % 04/10/2025 3:56 AM [facility] Eosinophil % 3.2 0.3 - 6.2 % 04/10/2025 3:56 AM EDT [facility] Basophil % 0.4 0.0 - 1.5 % 04/10/2025 3:56 AM EDT [facility] Immature Grans % 0.2 0.0 - 0.5 % 04/10/2025 3:56 AM EDT [facility] Neutrophils, Absolute 5.67 1.70 - 7.00 10*3/mm3 04/10/2025 3:56 AM EDT [facility] Lymphocytes, Absolute 2.78 0.70 - 3.10 10*3/mm3 04/10/2025 3:56 AM EDT [facility] Monocytes, Absolute 0.78 0.10 - 0.90 10*3/mm3 04/10/2025 3:56 AM EDT [facility] Eosinophils, Absolute 0.31 0.00 - 0.40 10*3/mm3 04/10/2025 3:56 AM EDT [facility] Basophils, Absolute 0.04 0.00 - 0.20 10*3/mm3 04/10/2025 3:56 AM EDT [facility] Immature Grans, Absolute 0.02 0.00 - 0.05 10*3/mm3 04/10/2025 3:56 AM EDT [facility] nRBC 0.0 0.0 - 0.2 /100 WBC 04/10/2025 3:56 AM EDT [facility] Blood Venipuncture / Unknown 04/10/2025 3:46 AM EDT 04/10/2025 3:53 AM EDT Jason Álvarez DO LAB BLOOD ORDERABLES Final Resul t [facility]
[address] [place] [address], * (ABNORMAL) Basic Metabolic Panel (04/10/2025 3:46 AM EDT) [facility] Glucose 125(H) 65 - 99 mg/dL 04/10/2025 4:20 AM EDT [facility] BUN 15.9 6.0 - 20.0 mg/dL 04/10/2025 4:20 AM T [facility] Creatinine 0.77 0.76 - 1.27 mg/dL 04/10/2025 4:20 AM T [facility] Sodium 137 136 - 145 mmol/L 04/10/2025 4:20 AM [facility] Potassium 3.9 3.5 - 5.2 mmol/L 04/10/2025 4:20 AM EDT [facility] Chloride 102 98 - 107 mmol/L 04/10/2025 4:20 AM EDT [facility] CO2 26.9 22.0 - 29.0 mmol/L 04/10/2025 4:20 AM [facility] Calcium 7.9(L) 8.6 - 10.5 mg/dL 04/10/2025 4:20 AM [facility] BUN/Creatinine Ratio 20.6 7.0 - 25.0 04/10/2025 4:20 AM [facility] Anion Gap 8.1 5.0 - 15.0 mmol/L 04/10/2025 4:20 AM [facility] eGFR 113.2 >60.0 mL/min/1.7 3 04/10/2025 4:20 AM [facility] Blood Venipuncture / Unknown 04/10/2025 3:46 AM EDT 04/10/2025 3:52 AM EDT [facility] - 04/10/2025 4:20 AM EDT GFR [...] DO LAB BLOOD ORDERABLES Final Resul t [facility]
[address] [place] [address], * Heparin Anti-Xa (04/10/2025 3:46 AM EDT) Heparin Anti-Xa (UFH) 0.35 0.30 - 0.70 IU/ml 04/10/2025 4:23 AM EDT [facility] Blood Venipuncture / Unknown 04/10/2025 3:46 AM EDT 04/10/2025 3:[address] [facility] LAB BLOOD ORDERABLES Final R esult Performing Organization Address City/[facility]/ZIP Co de Phone Number [facility]
[address] [place] [address], * Heparin Anti-Xa (04/09/2025 10:05 AM EDT) Heparin Anti-Xa (UFH) 0.36 0.30 - 0.70 IU/ml 04/09/2025 11:12 AM EDT [facility] Blood Venipuncture / Unknown 04/09/2025 10:05 AM EDT 04/09/2025 10:47 AM EDT [facility] LAB BLOOD ORDERABLES Final R esult [facility]
[address] [place] [address], * (ABNORMAL) CBC Auto Differential (04/09/2025 4:18 AM EDT) WBC 11.00(H) 3.40 - 10.80 10*3/mm3 04/09/2025 4:50 AM [facility] RBC 4.70 4.14 - 5.80 10*6/mm3 04/09/2025 4:50 AM EDT [facility] Hemoglobin 13.0 13.0 - 17.7 g/dL 04/09/2025 4:50 AM EDT [facility] Hematocrit 40.4 37.5 - 51.0 % 04/09/2025 4:50 AM EDT [facility] MCV 86.0 79.0 - 97.0 fL 04/09/2025 4:50 AM EDT [facility] MCH 27.7 26.6 - 33.0 pg 04/09/2025 4:50 [facility] MCHC 32.2 31.5 - 35.7 g/dL 04/09/2025 4:50 AM [facility] RDW 12.8 12.3 - 15.4 % 04/09/2025 4:50 AM [facility] RDW-SD 39.9 37.0 - 54.0 fl 04/09/2025 4:50 AM [facility] MPV 10.0 6.0 - 12.0 fL 04/09/2025 4:50 AM [facility] Platelets 211 140 - 450 10*3/mm3 04/09/2025 4:50 AM [facility] Neutrophil % 74.8 42.7 - 76.0 % 04/09/2025 4:50 AM EDT [facility] Lymphocyte % 15.4(L) 19.6 - 45.3 % 04/09/2025 4:50 AM EDT [facility] Monocyte % 8.5 5.0 - 12.0 % 04/09/2025 4:50 AM EDT [facility] Eosinophil % 0.6 0.3 - 6.2 % 04/09/2025 4:50 [facility] Basophil % 0.4 0.0 - 1.5 % 04/09/2025 4:50 AM EDT [facility] Immature Grans % 0.3 0.0 - 0.5 % 04/09/2025 4:50 AM EDT [facility] Neutrophils, Absolute 8.23(H) 1.70 - 7.00 10*3/mm3 04/09/2025 4:50 AM EDT [facility] Lymphocytes, Absolute 1.69 0.70 - 3.10 10*3/mm3 04/09/2025 4:50 AM EDT [facility] Monocytes, Absolute 0.94(H) 0.10 - 0.90 10*3/mm3 04/09/2025 4:50 AM EDT [facility] Eosinophils, Absolute 0.07 0.00 - 0.40 10*3/mm3 04/09/2025 4:50 AM EDT [facility] Basophils, Absolute 0.04 0.00 - 0.20 10*3/mm3 04/09/2025 4:50 AM EDT [facility] Immature Grans, Absolute 0.03 0.00 - 0.05 10*3/mm3 04/09/2025 4:50 AM EDT [facility] nRBC 0.0 0.0 - 0.2 /100 WBC 04/09/2025 4:50 AM EDT [facility] Blood Venipuncture / Unknown 04/09/2025 4:18 AM EDT 04/09/2025 4:31 AM EDT Sushil Dean Jr., MD LAB BLOOD ORDERABLES Fi nal Result [facility]
[address] [place] [address], * Heparin Anti-Xa (04/09/2025 4:18 AM EDT) Heparin Anti-Xa (UFH) 0.41 0.30 - 0.70 IU/ml 04/09/2025 4:53 AM EDT [facility] Blood Venipuncture / Unknown 04/09/2025 4:18 AM EDT 04/09/2025 4:31 AM EDT Una Wheeleroy PharmD LAB BLOOD ORDERABLES Final R esult [facility]
[address] [place] [address], * (ABNORMAL) Basic Metabolic Panel (04/09/2025 4:18 AM EDT) Pathologist [facility] Glucose 147(H) 65 - 99 mg/dL 04/09/2025 5:33 AM EDT [facility] BUN 23.0(H) 6.0 - 20.0 mg/dL 04/09/2025 5:33 AM EDT [facility] Creatinine 1.15 0.76 - 1.27 mg/dL 04/09/2025 5:33 AM EDT [facility] Sodium 135(L) 136 - 145 mmol/L 04/09/2025 5:33 AM EDT [facility] Potassium 4.2 3.5 - 5.2 mmol/L 04/09/2025 5:33 AM EDT [facility] Chloride 100 98 - 107 mmol/L 04/09/2025 5:33 AM EDT [facility] CO2 26.0 22.0 - 29.0 mmol/L 04/09/2025 5:33 AM EDT [facility] Calcium 8.2(L) 8.6 - 10.5 mg/dL 04/09/2025 5:33 AM EDT [facility] BUN/Creatinine Ratio 20.0 7.0 - 25.0 04/09/2025 5:33 AM EDT [facility] Anion Gap 9.0 5.0 - 15.0 mmol/L 04/09/2025 5:33 AM EDT [facility] eGFR 80.5 >60.0 mL/min/1.7 3 04/09/2025 5:33 AM EDT [facility] Blood Venipuncture / Unknown 04/09/2025 4:18 AM EDT 04/09/2025 4:29 AM EDT Narrative [facility] - 04/09/2025 5:33 AM EDT [...] ORDERABLES Fi nal Result Performing Organization Address [facility] [[email or web address]] Co de Phone Number [facility]
[address] [place] [address], * Wound Culture - Swab, Leg, Right (04/08/2025 3:40 PM EDT) Wound Culture No growth at 3 days ALIZA 04/11/2025 10:40 AM EDT [facility] Gram Stain Few (2+) WBCs seen 04/11/2025 10:40 AM EDT [facility] Gram Stain No organisms seen 04/11/2025 10:40 AM EDT [facility] Swab Structure of right lower limb / Unknown 04/08/2025 3:40 PM EDT 04/08/2025 8:05 PM EDT Sushil Dean Jr., MD MICROBIOLOGY - GENERAL ORDERABLES Final Result Performing Organization Address City/[facility]/ZIP Co de Phone Number [facility]
[address] [phone], [facility]
[address] [place] [address], * Anaerobic Culture - Swab, Leg, Right (04/08/2025 3:40 PM EDT) Pathologist [facility] Anaerobic Culture No anaerobes isolated at 5 days ALIZA 04/13/2025 7:24 AM EDT [facility] Swab Structure of right lower limb / Unknown 04/08/2025 3:40 PM EDT 04/08/2025 8:05 PM EDT Sushil Dean Jr., MD MICROBIOLOGY - GENERAL ORDERABLES Final Result Performing Organization Address City/[facility] [[email or web address]] Co de Phone Number [facility]
[address] [place] [address], [place] [phone] * Scan Slide (04/08/2025 8:41 AM EDT) Pathologist [facility] RBC Morphology Normal Normal 04/08/2025 11:02 AM EDT [facility] WBC Morphology Normal Normal 04/08/2025 11:02 AM EDT [facility] Platelet Estimate Adequate Normal 04/08/2025 11:02 AM EDT [facility] Clumped Platelets Present None Seen 04/08/2025 11:02 AM EDT [facility] Blood Venipuncture / Unknown 04/08/2025 8:41 AM EDT 04/08/2025 9:10 AM EDT Una LundbergD LAB BLOOD ORDERABLES Final R esult Performing Organization Address City/[facility]/ZIP Co de Phone Number [facility]
[address] [place] [address], [place] [phone] * (ABNORMAL) CBC Auto Differential (04/08/2025 8:41 AM EDT) Pathologist [facility] WBC 10.07 3.40 - 10.80 10*3/mm3 04/08/2025 11:02 AM EDT [facility] RBC 5.01 4.14 - 5.80 10*6/mm3 04/08/2025 11:02 AM EDT [facility] Hemoglobin 14.0 13.0 - 17.7 g/dL 04/08/2025 11:02 AM [facility] Hematocrit 42.7 37.5 - 51.0 % 04/08/2025 11:02 AM [facility] MCV 85.2 79.0 - 97.0 fL 04/08/2025 11:02 AM [facility] MCH 27.9 26.6 - 33.0 pg 04/08/2025 11:02 AM [facility] MCHC 32.8 31.5 - 35.7 g/dL 04/08/2025 11:02 AM [facility] RDW 12.6 12.3 - 15.4 % 04/08/2025 11:02 AM [facility] RDW-SD 38.9 37.0 - 54.0 fl 04/08/2025 11:02 AM [facility] MPV 11.0 6.0 - 12.0 fL 04/08/2025 11:02 AM [facility] Platelets 118(L) 140 - 450 10*3/mm3 04/08/2025 11:02 AM [facility] Neutrophil % 85.1(H) 42.7 - 76.0 % 04/08/2025 11:02 AM [facility] Lymphocyte % 9.3(L) 19.6 - 45.3 % 04/08/2025 11:02 AM [facility] Monocyte % 4.6(L) 5.0 - 12.0 % 04/08/2025 11:02 AM [facility] Eosinophil % 0.3 0.3 - 6.2 % 04/08/2025 11:02 AM [facility] Basophil % 0.2 0.0 - 1.5 % 04/08/2025 11:02 AM [facility] Immature Grans % 0.5 0.0 - 0.5 % 04/08/2025 11:02 AM [facility] Neutrophils, Absolute 8.57(H) 1.70 - 7.00 10*3/mm3 04/08/2025 11:02 AM EDT [facility] Lymphocytes, Absolute 0.94 0.70 - 3.10 10*3/mm3 04/08/2025 11:02 AM EDT [facility] Monocytes, Absolute 0.46 0.10 - 0.90 10*3/mm3 04/08/2025 11:02 AM EDT [facility] Eosinophils, Absolute 0.03 0.00 - 0.40 10*3/mm3 04/08/2025 11:02 AM EDT [facility] Basophils, Absolute 0.02 0.00 - 0.20 10*3/mm3 04/08/2025 11:02 AM EDT [facility] Immature Grans, Absolute 0.05 0.00 - 0.05 10*3/mm3 04/08/2025 11:02 AM EDT [facility] nRBC 0.0 0.0 - 0.2 /100 WBC 04/08/2025 11:02 AM EDT [facility] Blood Venipuncture / Unknown 04/08/2025 8:41 AM EDT 04/08/2025 9:10 AM EDT Una Perla PharmD LAB BLOOD ORDERABLES Final R esult [facility]
[address] [place] [address], * (ABNORMAL) Basic Metabolic Panel (04/08/2025 8:41 AM EDT) Glucose 125(H) 65 - 99 mg/dL 04/08/2025 9:51 AM EDT [facility] BUN 13.2 6.0 - 20.0 mg/dL 04/08/2025 9:51 AM EDT [facility] Creatinine 0.69(L) 0.76 - 1.27 mg/dL 04/08/2025 9:51 AM EDT [facility] Sodium 136 136 - 145 mmol/L 04/08/2025 9:51 AM EDT [facility] Potassium 4.6 3.5 - 5.2 mmol/L 04/08/2025 9:51 AM EDT [facility] Chloride 102 98 - 107 mmol/L 04/08/2025 9:51 AM EDT [facility] CO2 23.5 22.0 - 29.0 mmol/L 04/08/2025 9:51 AM EDT [facility] Calcium 8.4(L) 8.6 - 10.5 mg/dL 04/08/2025 9:51 AM EDT [facility] BUN/Creatinine Ratio 19.1 7.0 - 25.0 04/08/2025 9:51 AM EDT [facility] Anion Gap 10.5 5.0 - 15.0 mmol/L 04/08/2025 9:51 AM EDT [facility] eGFR 117.0 >60.0 mL/min/1.7 3 04/08/2025 9:51 AM EDT [facility] Blood Venipuncture / Unknown 04/08/2025 8:41 AM EDT 04/08/2025 9:09 AM EDT [facility] - 04/08/2025 9:51 AM EDT GFR [...] Jr., MD LAB BLOOD ORDERABLES nal Result [facility]
[address] [place] [address], * Heparin Anti-Xa (04/08/2025 8:41 AM EDT) Heparin Anti-Xa (UFH) 0.33 0.30 - 0.70 IU/ml 04/08/2025 9:40 AM EDT [facility] Blood Venipuncture / Unknown 04/08/2025 8:41 AM EDT 04/08/2025 9:10 AM EDT Sushil Dean Jr., MD LAB BLOOD ORDERABLES Fi nal Result [facility]
[address] [place] [address], * FL C Arm During Surgery (04/07/2025 9:32 PM EDT) Narrative SYSTEMGENERATED, DOCUMENTATION - 04/07/2025 9:38 PM EDT This procedure was auto-finalized with no dictation required. Sushil Dean Jr., MD IMG FLUOROSCOPY ORDERAB LES Final Result * Wound Culture - Swab, Leg, Right (04/07/2025 9:14 PM EDT) Wound Culture No growth at 3 days ALIZA 04/11/2025 10:40 AM EDT [facility] Gram Stain Occasional WBCs seen 04/11/2025 10:40 AM EDT [facility] Gram Stain No organisms seen 04/11/2025 10:40 AM EDT [facility] Swab Structure of right lower limb / Unknown Collection / Unknown 04/07/2025 9:14 PM EDT 04/08/2025 4:36 AM EDT Sushil Dean Jr., MD MICROBIOLOGY - GENERAL ORDERABLES Final Result [facility]
[address] [place] [address], [facility]
[address] [place] [address], * Anaerobic Culture - Swab, Leg, Right (04/07/2025 9:14 PM EDT) Anaerobic Culture No anaerobes isolated at 5 days ALIZA 04/13/2025 7:21 AM EDT [facility] Swab Structure of right lower limb / Unknown Collection / Unknown 04/07/2025 9:14 PM EDT 04/08/2025 4:36 AM EDT Sushil Dean Jr., MD MICROBIOLOGY - GENERAL ORDERABLES Final Result Performing Organization Address City/[facility]/ZIP Co de Phone Number [facility]
[address] [place] [address], * Anaerobic Culture - Tissue, Leg (04/07/2025 9:13 PM EDT) Anaerobic Culture No anaerobes isolated at 5 days ALIZA 04/13/2025 7:21 AM EDT [facility] Tissue Lower limb structure / Unknown Collection / Unknown 04/07/2025 9:13 PM EDT 04/08/2025 4:54 AM EDT Jason Álvarez DO MICROBIOLOGY - GENERAL ORDERABLE S Final Result [facility]
[address] [place] [address], * Tissue / Bone Culture - Tissue, Leg, Right (04/07/2025 9:13 PM EDT) Tissue Culture No growth at 3 days ALIZA 04/11/2025 10:36 AM EDT [facility] Gram Stain Rare (1+) WBCs seen 04/11/2025 10:36 AM EDT [facility] Gram Stain No organisms seen 04/11/2025 10:36 AM EDT [facility] Tissue Structure of right lower limb / Unknown 04/07/2025 9:13 PM EDT 04/08/2025 4:54 AM EDT Sushil Dean Jr., MD MICROBIOLOGY - GENERAL ORDERABLES Final Result Performing Organization Address City/[facility]/ZIP Co de Phone Number [facility]
[address] [place] [address], [place] [phone] [facility]
[address] [place] [address], [place] [phone] * (ABNORMAL) Wound Culture - Swab, Leg, Right (04/07/2025 9:07 PM EDT) Wound Culture Light growth (2+) Staphylococcus aureus, MRSA(A) ALIZA 04/10/2025 10:38 AM EDT [facility] Comment: Methicillin resistant Staphylococcus aureus, Patient may be an isolation risk. Gram Stain Few (2+) WBCs seen 04/10/2025 10:38 AM EDT [facility] Gram Stain No organisms seen 10:38 AM EDT [facility] Swab Structure of right lower [...] - GENERAL ORDERABLES Final Result [facility]
[address] [place] [address], [facility]
[address] [place] [address], * Anaerobic Culture - Swab, Leg, Right (04/07/2025 9:07 PM EDT) Pathologist [facility] Anaerobic Culture No anaerobes isolated at 5 days ALIZA 04/13/2025 7:21 AM EDT [facility] Swab Structure of right lower limb / Unknown Collection / Unknown 04/07/2025 9:07 PM EDT 04/08/2025 4:36 AM EDT Sushil Dean Jr., MD MICROBIOLOGY - GENERAL ORDERABLES Final Result Performing Organization Address [facility] [[email or web address]] Co de Phone Number [facility]
[address] [place] [address], * Heparin Anti-Xa (04/07/2025 9:10 AM EDT) [facility] Heparin Anti-Xa (UFH) 0.30 0.30 - 0.70 IU/ml 04/07/2025 10:12 AM EDT [facility] Blood Venipuncture / Unknown 04/07/2025 9:10 AM EDT 04/07/2025 9:38 AM EDT Una LundbergD LAB BLOOD ORDERABLES Final R esult Performing Organization Address City/[facility]/ZIP Co de Phone Number [facility]
[address] [place] [address], * (ABNORMAL) CBC Auto Differential (04/07/2025 9:10 AM EDT) Pathologist [facility] WBC 8.63 3.40 - 10.80 10*3/mm3 04/07/2025 9:50 AM EDT [facility] RBC 5.23 4.14 - 5.80 10*6/mm3 04/07[facility]25 [facility] Hemoglobin 14.7 13.0 - 17.7 g/dL 04/07/2025 9:50 AM [facility] Hematocrit 44.8 37.5 - 51.0 % 04/07/2025 9:50 AM [facility] MCV 85.7 79.0 - 97.0 fL 04/07/2025 9:50 AM EDT [facility] MCH 28.1 26.6 - 33.0 pg 04/07/2025 9:50 [facility] MCHC 32.8 31.5 - 35.7 g/dL 04/07/2025 9:50 AM [facility] RDW 12.8 12.3 - 15.4 % 04/07/2025 9:50 AM [facility] RDW-SD 39.9 37.0 - 54.0 fl 04/07/2025 9:50 AM [facility] MPV 10.8 6.0 - 12.0 fL 04/07/2025 9:50 AM [facility] Platelets 149 140 - 450 10*3/mm3 04/07/2025 9:50 AM [facility] Neutrophil % 66.7 42.7 - 76.0 % 04/07/2025 9:50 AM [facility] Lymphocyte % 20.5 19.6 - 45.3 % 04/07/2025 9:50 AM EDT [facility] Monocyte % 9.8 5.0 - 12.0 % 04/07/2025 9:50 AM [facility] Eosinophil % 2.1 0.3 - 6.2 % 04/07/2025 9:50 AM [facility] Basophil % 0.3 0.0 - 1.5 % 04/07/2025 9:50 AM [facility] Immature Grans % 0.6(H) 0.0 - 0.5 % 04/07/2025 9:50 AM EDT [facility] Neutrophils, Absolute 5.75 1.70 - 7.00 10*3/mm3 04/07/2025 9:50 AM EDT [facility] Lymphocytes, Absolute 1.77 0.70 - 3.10 10*3/mm3 04/07/2025 9:50 AM EDT [facility] Monocytes, Absolute 0.85 0.10 - 0.90 10*3/mm3 04/07/2025 9:50 AM EDT [facility] Eosinophils, Absolute 0.18 0.00 - 0.40 10*3/mm3 04/07/2025 9:50 AM EDT [facility] Basophils, Absolute 0.03 0.00 - 0.20 10*3/mm3 04/07/2025 9:50 AM EDT [facility] Immature Grans, Absolute 0.05 0.00 - 0.05 10*3/mm3 04/07/2025 9:50 AM EDT [facility] nRBC 0.0 0.0 - 0.2 /100 WBC 04/07/2025 9:50 AM EDT [facility] Blood Venipuncture / Unknown 04/07/2025 9:10 AM EDT 04/07/2025 9:38 AM EDT us Jason Álvarez DO LAB BLOOD ORDERABLES Final Resul t [facility]
[address] [place] [address], * (ABNORMAL) Basic Metabolic Panel (04/07/2025 9:10 AM EDT) Glucose 112(H) 65 - 99 mg/dL 04/07/2025 10:19 AM EDT [facility] BUN 13.1 6.0 - 20.0 mg/dL 04/07/2025 10:19 AM EDT [facility] Creatinine 0.77 0.76 - 1.27 mg/dL 04/07/2025 10:19 AM EDT [facility] Sodium 139 136 - 145 mmol/L 04/07/2025 10:19 AM EDT [facility] Potassium 4.2 3.5 - 5.2 mmol/L 04/07/2025 10:19 AM EDT [facility] Comment:Specimen hemolyzed. Result may be falsely elevated. Chloride 105 98 - 107 mmol/L 04/07/2025 10:19 AM EDT [facility] CO2 24.8 22.0 - 29.0 mmol/L 04/07/2025 10:19 AM EDT [facility] Calcium 8.6 8.6 - 10.5 mg/dL 04/07/2025 10:19 AM T [facility] BUN/Creatinine Ratio 17.0 7.0 - 25.0 04/07/2025 10:19 AM EDT [facility] Anion Gap 9.2 5.0 - 15.0 mmol/L 04/07/2025 10:19 AM T [facility] eGFR 113.2 >60.0 mL/min/1.7 3 04/07/2025 10:19 AM T [facility] Blood Venipuncture / Unknown 04/07/2025 9:10 AM EDT 04/07/2025 9:38 AM EDT Narrative [facility] - 04/07/2025 10:19 AM EDT [...] DO LAB BLOOD ORDERABLES Final Resul t [facility]
[address] [place] [address], * MRI Tibia Fibula Right With & [...] [place] 04/07/2025 9:58 AM EDT Workstation ID: [id number] Narrative 04/07/2025 9:58 AM EDT MRI TIBIA [...] [place] 04/07/2025 9:58 AM EDT Workstation ID: [id number] us Sushil Dean Jr., MD [facility] MRI ORDERABLES Mary Beth l Result * Heparin Anti-Xa (04/07/2025 1:42 AM EDT) Heparin Anti-Xa (UFH) 0.38 0.30 - 0.70 IU/ml 04/07/2025 2:14 AM EDT [facility] Blood Venipuncture / Unknown 04/07/2025 1:42 AM EDT 04/07/2025 1:54 AM EDT Chelsie Navarretesapna [facility] LAB BLOOD ORDERABLES Final R esult Performing Organization Address City/[facility]/ZIP Co de Phone Number [facility]
[address] [place] [address], * Heparin Anti-Xa (04/06/2025 7:16 PM EDT) Pathologist [facility] Heparin Anti-Xa (UFH) 0.33 0.30 - 0.70 IU/ml 04/06/2025 7:50 PM EDT [facility] Blood Venipuncture / Unknown 04/06/2025 7:16 PM EDT 04/06/2025 7:35 PM EDT Cherri Beatty [facility] LAB BLOOD ORDERABLES Final Res ult Performing Organization Address City/[facility] [[email or web address]] Co de Phone Number [facility]
[address] [place] [address], * Potassium (04/06/2025 7:16 PM EDT) Pathologist [facility] Potassium 4.0 3.5 - 5.2 mmol/L 04/06/2025 7:53 PM EDT [facility] Blood Venipuncture / Unknown 04/06/2025 7:16 PM EDT 04/06/2025 7:35 PM EDT Jason Álvarez DO LAB BLOOD ORDERABLES Final Resul t Performing Organization Address City/[facility]/ZIP Co de Phone Number [facility]
[address] [place] [address], * (ABNORMAL) Heparin Anti-Xa (04/06/2025 12:36 PM EDT) Heparin Anti-Xa (UFH) 0.24(L) 0.30 - 0.70 IU/ml 04/06/2025 1:23 PM EDT [facility] Blood Venipuncture / Unknown 04/06/2025 12:36 PM EDT 04/06/2025 1:07 PM EDT Una LundbergD LAB BLOOD ORDERABLES Final R esult [facility]
[address] [place] [address], * (ABNORMAL) Heparin Anti-Xa (04/06/2025 3:42 AM EDT) [facility] Heparin Anti-Xa (UFH) 0.25(L) 0.30 - 0.70 IU/ml 04/06/2025 5:30 AM EDT [facility] Blood Venipuncture / Unknown 04/06/2025 3:42 AM EDT 04/06/2025 4:59 AM EDT Chelsie Turpin [facility] LAB BLOOD ORDERABLES Final R esult [facility]
[address] [place] [address], * (ABNORMAL) Basic Metabolic Panel (04/06/2025 3:42 AM EDT) [facility] Glucose 94 65 - 99 mg/dL 04/06/2025 5:59 AM EDT [facility] BUN 12.8 6.0 - 20.0 mg/dL 04/06/2025 5:59 AM EDT [facility] Creatinine 0.80 0.76 - 1.27 mg/dL 04/06/2025 5:59 AM EDT [facility] Sodium 138 136 - 145 mmol/L 04/06/2025 5:59 AM EDT [facility] Potassium 3.6 3.5 - 5.2 mmol/L 04/06/2025 5:59 AM EDT [facility] Chloride 103 98 - 107 mmol/L 04/06/2025 5:59 AM EDT [facility] CO2 24.2 22.0 - 29.0 mmol/L 04/06/2025 5:59 AM EDT [facility] Calcium 8.0(L) 8.6 - 10.5 mg/dL 04/06/2025 5:59 AM EDT [facility] BUN/Creatinine Ratio 16.0 7.0 - 25.0 04/06/2025 5:59 AM EDT [facility] Anion Gap 10.8 5.0 - 15.0 mmol/L 04/06/2025 5:59 AM EDT [facility] eGFR 111.9 >60.0 mL/min/1.7 3 04/06/2025 5:59 AM EDT [facility] Blood Venipuncture / Unknown 04/06/2025 3:42 AM EDT 04/06/2025 5:20 AM EDT Narrative [facility] - 04/06/2025 5:59 AM EDT [...] DO LAB BLOOD ORDERABLES Final Resul t [facility]
[address] [place] [address], * (ABNORMAL) CBC Auto Differential (04/06/2025 3:41 AM EDT) WBC 10.86(H) 3.40 - 10.80 10*3/mm3 04/06/2025 5:04 AM EDT [facility] RBC 5.08 4.14 - 5.80 10*6/mm3 04/06/2025 5:04 AM EDT [facility] Hemoglobin 13.9 13.0 - 17.7 g/dL 04/06/2025 5:04 AM EDT [facility] Hematocrit 43.7 37.5 - 51.0 % 04/06/2025 5:04 AM EDT [facility] MCV 86.0 79.0 - 97.0 fL 04/06/2025 5:04 AM EDT [facility] MCH 27.4 26.6 - 33.0 pg 04/06/2025 5:04 AM EDT [facility] MCHC 31.8 31.5 - 35.7 g/dL 04/06/2025 5:04 AM EDT [facility] RDW 12.8 12.3 - 15.4 % 04/06/2025 5:04 AM EDT [facility] RDW-SD 40.0 37.0 - 54.0 fl 04/06/2025 5:04 AM EDT [facility] MPV 11.7 6.0 - 12.0 fL 04/06/2025 5:04 AM EDT [facility] Platelets 115(L) 140 - 450 10*3/mm3 04/06/2025 5:04 AM EDT [facility] Neutrophil % 65.3 42.7 - 76.0 % 04/06/2025 5:04 AM EDT [facility] Lymphocyte % 20.5 19.6 - 45.3 % 04/06/2025 5:04 AM EDT [facility] Monocyte % 11.8 5.0 - 12.0 % 04/06/2025 5:04 AM EDT [facility] Eosinophil % 1.8 0.3 - 6.2 % 04/06/2025 5:04 AM EDT [facility] Basophil % 0.3 0.0 - 1.5 % 04/06/2025 5:04 AM EDT [facility] Immature Grans % 0.3 0.0 - 0.5 % 04/06/2025 5:04 AM EDT [facility] Neutrophils, Absolute 7.09(H) 1.70 - 7.00 10*3/mm3 04/06/2025 5:04 AM EDT [facility] Lymphocytes, Absolute 2.23 0.70 - 3.10 10*3/mm3 04/06/2025 5:04 AM EDT [facility] Monocytes, Absolute 1.28(H) 0.10 - 0.90 10*3/mm3 04/06/2025 5:04 AM EDT [facility] Eosinophils, Absolute 0.20 0.00 - 0.40 10*3/mm3 04/06/2025 5:04 AM EDT [facility] Basophils, Absolute 0.03 0.00 - 0.20 10*3/mm3 04/06/2025 5:04 AM EDT [facility] Immature Grans, Absolute 0.03 0.00 - 0.05 10*3/mm3 04/06/2025 5:04 AM EDT [facility] nRBC 0.0 0.0 - 0.2 /100 WBC 04/06/2025 5:04 AM EDT [facility] Blood Venipuncture / Unknown 04/06/2025 3:41 AM EDT 04/06/2025 4:58 AM EDT us Jason Álvarez DO LAB BLOOD ORDERABLES Final Resul t [facility]
[address] [place] [address], * Heparin Anti-Xa (04/05/2025 8:43 PM EDT) Heparin Anti-Xa (UFH) 0.38 0.30 - 0.70 IU/ml 04/05/2025 9:09 PM EDT [facility] Blood Venipuncture / Unknown 04/05/2025 8:43 PM EDT 04/05/2025 8:55 PM EDT Cherri Beatty [facility] LAB BLOOD ORDERABLES Final Res ult Performing Organization Address [facility] [[email or web address]] Co de Phone Number [facility]
[address] [place] [address], * CK (04/05/2025 12:15 PM EDT) Creatine Kinase 140 20 - 200 U/L 04/05/2025 1:31 PM EDT [facility] Blood Venipuncture / Unknown 04/05/2025 12:15 PM EDT 04/05/2025 1:03 PM EDT Carlton Mead MD LAB BLOOD ORDERABLES Final R esult Performing Organization Address [facility] [[email or web address]] Co de Phone Number [facility]
[address] [place] [address], [place] [phone] * (ABNORMAL) Heparin Anti-Xa (04/05/2025 12:15 PM EDT) Heparin Anti-Xa (UFH) 0.17(L) 0.30 - 0.70 IU/ml 04/05/2025 1:21 PM EDT [facility] Blood Venipuncture / Unknown 04/05/2025 12:15 PM EDT 04/05/2025 1:04 PM EDT Una LundbergD LAB BLOOD ORDERABLES Final R esult Performing Organization Address City/[facility]/ZIP Co de Phone Number [facility]
[address] [place] [address], * (ABNORMAL) aPTT (04/05/2025 3:54 AM EDT) [facility] PTT 35.3(L) 60.0 - 90.0 seconds 04/05/2025 4:31 AM EDT [facility] Blood Venipuncture / Unknown 04/05/2025 3:54 AM EDT 04/05/2025 4:15 AM EDT Narrative [facility] - 04/05/2025 4:31 AM EDT PTT = The equivalent PTT values for the therapeutic range of heparin levels at 0.3 to 0.5 U/ml are 60 to 70 seconds. Una Perla [employer] LAB BLOOD ORDERABLES Final R esult Performing Organization Address [facility] [[email or web address]] Co de Phone Number [facility]
[address] [place] [address], * Heparin Anti-Xa (04/05/2025 3:54 AM EDT) [facility] Heparin Anti-Xa (UFH) 0.30 0.30 - 0.70 IU/ml 04/05/2025 4:32 AM EDT [facility] Blood Venipuncture / Unknown 04/05/2025 3:54 AM EDT 04/05/2025 4:15 AM EDT [employer] LAB BLOOD ORDERABLES Final R esult Performing Organization Address City/[facility] [[email or web address]] Co de Phone Number [facility]
[address] [place] [address], * (ABNORMAL) CBC Auto Differential (04/05/2025 3:54 AM EDT) [facility] WBC 11.18(H) 3.40 - 10.80 10*3/mm3 04/05/2025 4:20 AM EDT [facility] RBC 5.00 4.14 - 5.80 10*6/mm3 04/05/2025 4:20 AM EDT [facility] Hemoglobin 13.9 13.0 - 17.7 g/dL 04/05/2025 4:20 AM EDT [facility] Hematocrit 42.4 37.5 - 51.0 % 04/05/2025 4:20 AM EDT [facility] MCV 84.8 79.0 - 97.0 fL 04/05/2025 4:20 AM EDT [facility] MCH 27.8 26.6 - 33.0 pg 04/05[facility]2025 4:[facility] MCHC 32.8 31.5 - 35.7 g/dL 04/05/2025 4:20 AM [facility] RDW 12.9 12.3 - 15.4 % 04/05/2025 4:20 AM [facility] RDW-SD 39.7 37.0 - 54.0 fl 04/05/2025 4:20 AM [facility] MPV 10.2 6.0 - 12.0 fL 04/05/2025 4:20 AM [facility] Platelets 160 140 - 450 10*3/mm3 04/05/2025 4:20 AM [facility] Neutrophil % 73.5 42.7 - 76.0 % 04/05/2025 4:20 AM [facility] Lymphocyte % 14.0(L) 19.6 - 45.3 % 04/05/2025 4:20 AM EDT [facility] Monocyte % 11.0 5.0 - 12.0 % 04/05/2025 4:20 AM [facility] Eosinophil % 0.8 0.3 - 6.2 % 04/05/2025 4:20 AM [facility] Basophil % 0.3 0.0 - 1.5 % 04/05/2025 4:20 AM EDT [facility] Immature Grans % 0.4 0.0 - 0.5 % 04/05/2025 4:20 AM EDT [facility] Neutrophils, Absolute 8.23(H) 1.70 - 7.00 10*3/mm3 04/05/2025 4:20 AM EDT [facility] Lymphocytes, Absolute 1.56 0.70 - 3.10 10*3/mm3 04/05/2025 4:20 AM EDT [facility] Monocytes, Absolute 1.23(H) 0.10 - 0.90 10*3/mm3 04/05/2025 4:20 AM EDT [facility] Eosinophils, Absolute 0.09 0.00 - 0.40 10*3/mm3 04/05/2025 4:20 AM EDT [facility] Basophils, Absolute 0.03 0.00 - 0.20 10*3/mm3 04/05/2025 4:20 AM EDT [facility] Immature Grans, Absolute 0.04 0.00 - 0.05 10*3/mm3 04/05/2025 4:20 AM EDT [facility] nRBC 0.0 0.0 - 0.2 /100 WBC 04/05/2025 4:20 AM EDT [facility] Blood Venipuncture / Unknown 04/05/2025 3:54 AM EDT 04/05/2025 4:16 AM EDT Una Perla PharmD LAB BLOOD ORDERABLES Final R esult [facility]
[address] [place] [address], * (ABNORMAL) Basic Metabolic Panel (04/05/2025 3:54 AM EDT) [facility] Signature Glucose 152(H) 65 - 99 mg/dL 04/05/2025 4:40 AM EDT [facility] BUN 17.3 6.0 - 20.0 mg/dL 04/05/2025 4:40 AM T [facility] Creatinine 0.92 0.76 - 1.27 mg/dL 04/05/2025 4:40 AM EDT [facility] Sodium 136 136 - 145 mmol/L 04/05/2025 4:40 AM EDT [facility] Potassium 3.9 3.5 - 5.2 mmol/L 04/05/2025 4:40 AM EDT [facility] Chloride 103 98 - 107 mmol/L 04/05/2025 4:40 AM EDT [facility] CO2 24.0 22.0 - 29.0 mmol/L 04/05/2025 4:40 AM T [facility] Calcium 7.8(L) 8.6 - 10.5 mg/dL 04/05/2025 4:40 AM [facility] BUN/Creatinine Ratio 18.8 7.0 - 25.0 04/05/2025 4:40 AM T [facility] Anion Gap 9.0 5.0 - 15.0 mmol/L 04/05/2025 4:40 AM [facility] eGFR 105.2 >60.0 mL/min/1.7 3 04/05/2025 4:40 AM [facility] Blood Venipuncture / Unknown 04/05/2025 3:54 AM EDT 04/05/2025 4:15 AM EDT [facility] - 04/05/2025 4:40 AM EDT GFR [...] ORDERABLES Final Re sult Performing Organization Address [facility] [[email or web address]] Co de Phone Number [facility]
[address] [place] [address], * (ABNORMAL) aPTT (04/05/2025 12:18 AM EDT) PTT 33.6(L) 60.0 - 90.0 seconds 04/05/2025 12:53 AM EDT [facility] Blood Venipuncture / Unknown 04/05/2025 12:18 AM EDT 04/05/2025 12:37 AM EDT Narrative [facility] - 04/05/2025 12:53 AM EDT PTT = The equivalent PTT values for the therapeutic range of heparin levels at 0.3 to 0.5 U/ml are 60 to 70 seconds. Una Perla PharmD LAB BLOOD ORDERABLES Final R esult Performing Organization Address [facility] [[email or web address]] Co de Phone Number [facility]
[address] [place] [address], [place] [phone] * (ABNORMAL) Protime-INR (04/05/2025 12:18 AM EDT) Protime 15.9(H) 12.2 - 15.3 Seconds 04/05/2025 12:53 AM EDT [facility] INR 1.19(H) 0.89 - 1.12 04/05/2025 12:53 AM EDT [facility] Blood Venipuncture / Unknown 04/05/2025 12:18 AM EDT 04/05/2025 12:37 AM EDT Una Perla PharmD LAB BLOOD ORDERABLES Final R esult Performing Organization Address City/[facility] [[email or web address]] Co de Phone Number [facility]
[address] [place] [address], [place] [phone] * Heparin Anti-Xa (04/05/2025 12:18 AM EDT) Heparin Anti-Xa ([facility]) 0.39 0.30 - 0.70 IU/ml 04/05/2025 12:54 AM EDT [facility] Blood Venipuncture / Unknown 04/05/2025 12:18 AM EDT 04/05/2025 12:37 AM EDT Una Perla PharmD LAB BLOOD ORDERABLES Final R esult [facility]
[address] [place] [address], * MRI Tibia Fibula Right With & [...] MD 04/04/2025 11:00 PM EDT Workstation ID: [id number] Narrative 04/04/2025 11:00 PM EDT MRI TIBIA [...] MD 04/04/2025 11:00 PM EDT Workstation ID: [id number] us Leonora Shepherd MD IMG MRI ORDERABLES Final Resu lt * POC Creatinine (04/04/2025 2:49 PM EDT) [facility] Creatinine 1.10 0.60 - 1.30 mg/dL 04/07/2025 7:14 PM EDT [facility] Comment:Serial Number: [id number] 7Operator: [id number] Venous Blood 04/04/2025 2:49 PM EDT 04/07/2025 7:14 PM EDT Jason Álvarez DO POINT OF CARE TEST ORDERABLES Fi nal Result [facility]
[address] [place] [address], * (ABNORMAL) CBC Auto Differential (04/04/2025 2:47 PM EDT) [facility] WBC 12.72(H) 3.40 - 10.80 10*3/mm3 04/04/2025 2:56 PM EDT [facility] RBC 5.64 4.14 - 5.80 10*6/mm3 04/04/2025 2:56 PM EDT [facility] Hemoglobin 15.3 13.0 - 17.7 g/dL 04/04/2025 2:56 PM EDT [facility] Hematocrit 47.9 37.5 - 51.0 % 04/04/2025 2:56 PM EDT [facility] MCV 84.9 79.0 - 97.0 fL 04/04/2025 2:56 PM EDT [facility] MCH 27.1 26.6 - 33.0 pg 04/04/2025 2:56 PM EDT [facility] MCHC 31.9 31.5 - 35.7 g/dL 04/04/2025 2:56 PM EDT [facility] RDW 13.1 12.3 - 15.4 % [facility] 40.3 37.0 - 54.0 fl 04/04/2025 2:56 PM EDT [facility] MPV 9.4 6.0 - 12.0 fL 04/04/2025 2:56 PM EDT [facility] Platelets 232 140 - 450 10*3/mm3 04/04/2025 2:56 PM EDT [facility] Neutrophil % 74.9 42.7 - 76.0 % 04/04/2025 2:56 PM EDT [facility] Lymphocyte % 13.1(L) 19.6 - 45.3 % [facility] Monocyte % 11.2 5.0 - 12.0 % 04/04/2025 2:[facility] Eosinophil % 0.4 0.3 - 6.2 % 04/04/2025 2:56 PM EDT [facility] Basophil % 0.2 0.0 - 1.5 % 04/04/2025 2:[facility] Immature Grans % 0.2 0.0 - 0.5 % 04/04/2025 2:56 PM [facility] Neutrophils, Absolute 9.52(H) 1.70 - 7.00 10*3/mm3 04/04/2025 2:56 PM [facility] Lymphocytes, Absolute 1.66 0.70 - 3.10 10*3/mm3 04/04/2025 2:56 PM EDT [facility] Monocytes, Absolute 1.43(H) 0.10 - 0.90 10*3/mm3 04/04/2025 2:56 PM EDT [facility] Eosinophils, Absolute 0.05 0.00 - 0.40 10*3/mm3 04/04/2025 2:[facility] Basophils, Absolute 0.03 0.00 - 0.20 10*3/mm3 04/04/2025 2:56 PM EDT [facility] Immature Grans, Absolute 0.03 0.00 - 0.05 10*3/mm3 04/04/2025 2:56 PM EDT [facility] nRBC 0.0 0.0 - 0.2 /100 WBC 04/04/2025 2:56 PM EDT [facility] Blood Venipuncture / Unknown 04/04/2025 2:47 PM EDT 04/04/2025 2:52 PM EDT Mario Ortiz [facility] LAB BLOOD ORDERABLES Fin al Result Performing Organization Address City/[facility]/ZIP Co de Phone Number [facility]
[address] [place] [address], * (ABNORMAL) C-reactive Protein (04/04/2025 2:47 PM EDT) C-Reactive Protein 8.57(H) 0.00 - 0.50 mg/dL 04/04/2025 3:26 PM EDT [facility] Blood Venipuncture / Unknown 04/04/2025 2:47 PM EDT 04/04/2025 2:52 PM EDT Mario Ortiz [facility] LAB BLOOD ORDERABLES Fin al Result Performing Organization Address [facility] de Phone Number [facility]
[address] [place] [address], * (ABNORMAL) Sedimentation Rate (04/04/2025 2:47 PM EDT) Sed Rate 51(H) 0 - 15 mm/hr 04/04/2025 3:06 PM EDT [facility] Blood Venipuncture / Unknown 04/04/2025 2:47 PM EDT 04/04/2025 2:52 PM EDT [facility]iz [facility] ORDER[facility]LES Fin al Result Performing Organization Address City/[facility]/ZIP Co de Phone Number [facility]
[address] [place] [address], * Comprehensive Metabolic Panel (04/04/2025 2:47 PM EDT) [facility] Glucose 90 65 - 99 mg/dL 04/04/2025 3:26 PM EDT [facility] BUN 18.3 6.0 - 20.0 mg/dL 04/04/2025 3:26 PM EDT [facility] Creatinine 0.94 0.76 - 1.27 mg/dL 04/04/2025 3:26 PM EDT [facility] Sodium 136 136 - 145 mmol/L 04/04/2025 3:26 PM EDT [facility] Potassium 3.8 3.5 - 5.2 mmol/L 04/04/2025 3:26 PM EDT [facility] Chloride 100 98 - 107 mmol/L 04/04/2025 3:26 PM EDT [facility] CO2 25.3 22.0 - 29.0 mmol/L 04/04/2025 3:26 PM EDT [facility] Calcium 8.6 8.6 - 10.5 mg/dL 04/04/2025 3:26 PM EDT [facility] Total Protein 7.3 6.0 - 8.5 g/dL 04/04/2025 3:26 PM EDT [facility] Albumin 4.1 3.5 - 5.2 g/dL 04/04/2025 3:26 PM EDT [facility] ALT (SGPT) 26 1 - 41 U/L 04/04/2025 3:26 PM EDT [facility] AST (SGOT) 25 1 - 40 U/L 04/04/2025 3:26 PM EDT [facility] Alkaline Phosphatase 106 39 - 117 U/L 04/04/2025 3:26 PM EDT [facility] Total Bilirubin 1.0 0.0 - 1.2 mg/dL 04/04/2025 3:26 PM EDT [facility] Globulin 3.2 gm/dL 04/04/2025 3:26 PM EDT [facility] Comment:Calculated Result A/G Ratio 1.3 g/dL 04/04/2025 3:26 PM EDT [facility] BUN/Creatinine Ratio 19.5 7.0 - 25.0 04/04/2025 3:26 PM EDT [facility] Anion Gap 10.7 5.0 - 15.0 mmol/L 04/04/2025 3:26 PM EDT [facility] eGFR 102.5 >60.0 mL/min/1.7 3 04/04/2025 3:26 PM EDT [facility] Blood Venipuncture / Unknown 04/04/2025 2:47 PM EDT 04/04/2025 2:52 PM EDT Narrative [facility] - 04/04/2025 3:26 PM EDT [...] DO LAB BLOOD ORDERABLES Fin al Result [facility]
[address] [place] [address], documented in this encounter Visit Diagnoses Diagnosis [...] 04/05/2025 3:33 PM EDT 2,000 Units heparin 80142 units/250 mL (100 units/mL) in 0.45 % [...] BPA Driven Protocol Open Order & [facility] Electrolyte Replacement Protocol Algorithm to View [...] BPA Driven Protocol Open Order & [facility] Electrolyte Replacement Protocol Algorithm to View [...] disposal. 0831 (Given - Provider: Amber Salazar, ACUTE CARE PHYSICIAN)194 (Given - Provider: Anahy Marcelino, ACUTE CARE PHYSICIAN)2129 (Canceled Entry - Provider: Anahy Marcelino RRT [...] Hart RN)2030 (Given - Provider: Alberto Dillon, UL) 100 (Given - Provider: Marguerite Wakefield, RN) [...] Continuous Medication Order 04/09/2025 04/10/2025 04/11/2025 heparin [id number] units/250 mL (100 units/mL) in 0.45 % [...] Shirley Hart, LU)1220 (Given - Provider: Shirley aHrt, RN)1438 (Given - Provider: Shirley Hart, RN)1628 [...] BPA Driven Protocol Open Order & [facility] Electrolyte Replacement Protocol Algorithm to View [...] BPA Driven Protocol Open Order & [facility] Electrolyte Replacement Protocol Algorithm to View [...] documented as of this encounter Care Teams Ladies' Locker Room Attendant Relationship Specialty Start Date End Date Provider, [place] [address] PCP - General 05/09/23 documented as of this encounter
--- OUTSIDE RECORDS SUMMARY | 2025-04-07 17:00 | XMS_ITS | Encounter Summary ---
[facility] Address [address] [place] [address] Care Team Providers Care Armament Repairer Name Role Phone Provider, No Known Primary Care Provider Unavail able Reason for Visit * Reason Comments Leg Swelling * Auth/Cert Specialty Diagnoses / Procedures Referred By Contac t Referred To Contact Diagnoses Right BKA infection Referral ID Status Reason Start Date Expiration Date Visits Re quested Visits Authorized [id number] 1 1 Encounter Details Date Type Department Care Team (Late st Contact Info) Description 04/07/2025 6:00 PM EDT - 04/07/2025 6:52 PM EDT Surgery [facility] OR [address] [place] [address] Sushil Dean Jr., MD [address] [place] [address] [address] [id number] LEG DEBRIDEMENT, IRRIGATION Social History Tobacco Use Types Packs/Day Years Used Date Smoking Tobacco: Never Smokeless Tobacco: Never Tobacco Cessation:Counseling Given: Not Answered Alcohol Use Standard Drinks/Week Comments Not Currently 0 (1 standard drink = 0.6 oz pur e alcohol) [facility] Utilities Answer Date Recorded In the past 12 months has [employer] electric, gas, oil, or water company threatened [...] or training? Not on file Preferred Language Colombian 04/07/2025 Sex and Gender Information Value Date [...] 2:25 PM EDT Cherri Grimm RN * [place] Suicide Severity Rating Scale (Screener/Recent Self-Report) Question [...] this encounter Discharge Summaries * Rosario Hill, ADVID - 04/11/2025 11:11 AM EDT Images from the original note were not included. [facility] Medicine Services DISCHARGE SUMMARY Patient [...] Date/Time Wound Culture - Swab, Leg, Right [[id number]] (Abnormal) (Susceptibility) Collected: 04/07/252106 Lab Status: Final [...] Units Date/Time FL C Arm During Surgery [[id number]] Resulted: 04/07/252137 Updated: 04/07/252137 Narrative: This procedure was auto-finalized with no dictation required. MRI Tibia Fibula Right With & Without Contrast [[id number]] Collected: 04/07/25 0938 Updated: 04/07/25 1001 Narrative: [...] Buenrostro 04/07/2025 9:58 AM EDT Workstation ID: [id number] MRI Tibia Fibula Right With & Without Contrast [[id number]] Collected: 04/04/252256 Updated: 04/04/252302 Narrative: MRI TIBIA [...] represent a small area of phlegmonous change (oviwrl89 image 10) measuring approximately 1.6 cm which [...] MD 04/04/2025 11:00 PM EDT Workstation ID: [id number] Pending Labs Order Current Status Fungus Culture [...] Male) Date of 1980 Social Security Number [id number] [place] [address] [place] [address] [facility]itan Unknown Marital Status Unknown Admission Date 04/04/2025 Admission Type Emergency Admitting Provider Jadyn Richardson DO Attending Provider Jadyn Richardson DO Department, Room/Bed [facility] 5G, S565/1 Discharge Date Discharge Disposition Discharge Destination Attending Provider: Jadyn Richardson DO Allergies: Ceftin [Cefuroxime], Keflex [Cephalexin], Latex Isolation: None Infection: MRSA (05/11/23) Code Status: CPR Ht: 180.3 cm (71 ) Wt: 134 kg (295 lb) Admission Cmt: None 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 [address] Subscriber Name Subscriber Date Member ID WON DENNIS 1980 [id number] Emergency Contacts Entry Examiner (Rel.) Home Phone Work Phone Mobile Phone Avril Dennis (Spouse) -- -- [phone] Robert Hackett (Relative) -- -- [phone] [facility] 5G [address] [facility] [address] Patient: ROOM: [facility] Won Dennis [address] [facility] [place] [place] [address] : 1980 SSN: [id number] Sex: M PCP: Provider, No Known Emergency Contact Information Name Relation Home Work Mobile Avril Dennis Spouse [phone] Other Contacts Name Relation Home Work Mobile Robert Hackett Relative [phone] INSURANCE PAYOR PLAN GROUP # SUBSCRIBER ID Primary: Secondary: MEDICARE [place] [id number] Admitting Diagnosis: 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 Outpatient intravenous antibiotic therapy: Daptomycin 800 mg IV daily to be supplied by [facility] 2. Home health to perform [...] INFECTIOUS DISEASE Progress Note Won Dennis 1980 [id number] Date of Consult: 04/10/2025 Admission Date: 04/04/2025 [...] Jr., MD, 20 mg at 04/09/25906 heparin 24399 units/250 mL (100 units/mL) in 0.45 % [...] Units Date/Time FL C Arm During Surgery [[id number]] Resulted: 04/07/252137 Updated: 04/07/252137 Narrative: This procedure was auto-finalized with no dictation required. MRI Tibia Fibula Right With & Without Contrast [[id number]] Collected: 04/07/2538 Updated: 04/07/25 1001 Narrative: MRI [...] Buenrostro 04/07/2025 9:58 AM EDT Workstation ID: [id number] Impression: Recurrent Right BKA stump abscess/cellulitis- this [...] discussed his disposition with the pharmacist at [facility] today. I will sign off Outpatient orders: 1. Outpatient intravenous antibiotic therapy: Daptomycin 800 mg IV daily to be supplied by [facility] 2. Home health to perform [...] 04/10/251323 Creation Time: 04/10/251323 Signed Expand All [facility] Medicine Services PROGRESS NOTE Patient Name: [...] Date/Time Wound Culture - Swab, Leg, Right [[id number]] (Abnormal) (Susceptibility) Collected: 04/07/252106 Lab Status: Final [...] Row Name 04/06/25 1143 Sit-Stand Transfer Sit-Stand [place] (Transfers) modified independence - Comment, (Sit-Stand Transfer) Pt stood from recliner. Not holding onto walker, pt able to pull his pants up while balancing on his one leg. -LM Row Name 04/06/25 1143 Gait/Stairs (Locomotion) [place] Level (Gait) modified independence - Distance in [...] Motion bilateral lower extremity ROM WFL -LM [facility] Name 04/06/25 1145 Strength Comprehensive (MMT) General Manual Muscle Testing (MMT) Assessment no strength deficits identified BLEs -LM [facility] Name 04/06/25 1145 Balance Balance Assessment [...] home at d/c. PT signing off. -LM [facility] Name 04/06/25 1146 Therapy Assessment/Plan (PT) Criteria for Skilled Interventions Met (PT) no;no problems identified which require skilled intervention -LM Therapy Frequency (PT) evaluation only -LM Predicted Duration of Therapy Intervention (PT) Eval Only -LM [facility] Name 04/06/25 1146 Vital Signs Pretreatment Heart Rate (beats/min) 86 -LM Posttreatment Heart Rate (beats/min) 96 -LM Pre SpO2 (%) 95 -LM O2 Delivery Pre Treatment room air -LM Post SpO2 (%) 96 -LM O2 Delivery Post Treatment room air -LM Pre Patient Position Sitting -LM Post Patient Position Sitting -LM [facility] Name 04/06/25 1146 Positioning and Restraints [...] Nurse Physical Therapy Education Title: PT OT SUBMARINE CABLE EQUIPMENT TECHNICIAN Therapies (Done) Topic: Physical Therapy (Done) Point: Mobility training (Done) Learning Progress Summary Patient Acceptance, E, VU,DU by at 04/06/2025 1147 Point: Precautions (Done) Learning Progress Summary Patient Acceptance, E, VU,DU by at 04/06/2025 1147 User Cabrera Initials Effective Dates Name Provider Type [facility] 01/24/25 - Susan Cavazos, PT Physical [...] Description Service Date Service Provider Modifiers Qty [id number] PT EVAL LOW COMPLEXITY 3 04/06/2025 Susan [...] mg Daily 04/05/2025 -- Route: Oral heparin 94633 units/250 mL (100 units/mL) in 0.45 % [...] Dean MD April 21 vs April 22 [facility] [address], [address] [facility], [address] Please schedule at [phone] VONDA Garcia 04/11/25 08:32 EDT Cosigned by Sushil Dean Jr., MD at 04/19/2025 10:33 AM EDT Associated attestation - Sushil Dean Jr., MD - 04/19/2025 10:33 AM EDT I have reviewed this documentation and agree. * Rosario Hill APRN - 04/10/2025 1:24 PM EDT Images from the original note were not included. [facility] Medicine Services PROGRESS NOTE Patient [...] Date/Time Wound Culture - Swab, Leg, Right [[id number]] (Abnormal) (Susceptibility) Collected: 04/07/252106 Lab Status: Final [...] mg Daily 04/05/2025 -- Route: Oral heparin 10294 units/250 mL (100 units/mL) in 0.45 % [...] Dean MD April 21 vs April 22 [facility] [address], [address] [facility], [address] Please schedule at [phone] VONDA Garcia 04/10/25 09:01 EDT Cosigned by Sushil Dean Jr., MD at 04/19/2025 10:33 AM EDT Associated attestation - Sushil Dean Jr., MD - 04/19/2025 10:33 AM EDT I have reviewed this documentation and agree. * Carlton Mead MD - 04/10/2025 7:38 AM EDT Images from the original note were not included. INFECTIOUS DISEASE Progress Note Won Dennis 1980 [id number] Date of Consult: 04/10/2025 Admission Date: 04/04/2025 [...] IRRIGATION; Surgeon: Sushil Dean Jr., MD; Location: [email or web address] OR; Service: Orthopedics; Laterality: Right; PLACEMENT OF WOUND VAC Right 04/07/2025 Procedure: WOUND VACUUM ASSISTED CLOSURE; Surgeon: Sushil Dean Jr., MD; Location: [email or web address] OR; Service: Orthopedics; Laterality: Right; WOUND CLOSURE [...] Jr., MD, 20 mg at 04/09/25906 heparin 40668 units/250 mL (100 units/mL) in 0.45 % [...] Sushli Dean Jr., MD, 10 mL at 04/09/252026 [...] Units Date/Time FL C Arm During Surgery [[id number]] Resulted: 04/07/252137 Updated: 04/07/252137 Narrative: This procedure was auto-finalized with no dictation required. MRI Tibia Fibula Right With & Without Contrast [[id number]] Collected: 04/07/25937 Updated: 04/07/25 100 Narrative: MRI [...] Buenrostro 04/07/2025 9:58 AM EDT Workstation ID: [id number] Impression: Recurrent Right BKA stump abscess/cellulitis- this [...] discussed his disposition with the pharmacist at [facility] today. I will sign off Outpatient orders: 1. Outpatient intravenous antibiotic therapy: Daptomycin 800 mg IV daily to be supplied by [facility] 2. Home health to perform [...] MD 04/10/2025 07:38 EDT * Larisa Hamilton [facility] - 04/10/2025 7:17 AM EDT [...] from the original note were not included. [facility] Medicine Services PROGRESS NOTE Patient [...] Date/Time Wound Culture - Swab, Leg, Right [[id number]] (Abnormal) Collected: 04/07/252106 Lab Status: Preliminary result [...] Jason Álvarez DO 04/09/25 * Larisa Hamilton [facility] - 04/09/2025 11:36 AM EDT [...] mg Daily 04/05/2025 -- Route: Oral heparin 57443 units/250 mL (100 units/mL) in 0.45 % [...] in 2 weeks for incision check, radiographs [facility] [address], [address] [facility], [address] Please schedule at [phone] VONDA Garcia 04/09/25 09:18 EDT Cosigned by Sushil Dean Jr., MD at 04/19/2025 10:33 AM EDT Associated attestation - Sushil Dean Jr., MD - 04/19/2025 10:33 AM EDT I have reviewed this documentation and agree. * Carlton Mead MD - 04/09/2025 8:25 AM EDT Images from the original note were not included. INFECTIOUS DISEASE Progress Note Won Dennis 1980 [id number] Date of Consult: 04/09/2025 Admission Date: 04/04/2025 [...] Surgeon: Sushil Dean Jr., MD; Location: [facility]; Service: Orthopedics; Laterality: Right; PLACEMENT OF WOUND VAC Right 04/07/2025 Procedure: WOUND VACUUM ASSISTED CLOSURE; Surgeon: Sushil Dean Jr., MD; Location: [facility] OR; Service: Orthopedics; Laterality: Right; History [...] MD, 20 mg at 04/08/25 0800 heparin 85466 units/250 mL (100 units/mL) in 0.45 % [...] Heparin, , Not Applicable, Continuous PRN, Sushil eDan Jr., MD Phosphorus Replacement - Follow Nurse [...] Sushil eDan Jr., MD, 100 mg at 04/08/252006 [COMPLETED] [...] Units Date/Time FL C Arm During Surgery [[id number]] Resulted: 04/07/252137 Updated: 04/07/252137 Narrative: This procedure was auto-finalized with no dictation required. MRI Tibia Fibula Right With & Without Contrast [[id number]] Collected: 04/07/25 0938 Updated: 04/07/25 1001 Narrative: [...] Chitra 04/07/2025 9:58 AM EDT Workstation ID: [id number] Impression: Recurrent Right BKA stump abscess/cellulitis- this [...] mg IV daily to be supplied by [facility] 2. Home health to perform [...] from the original note were not included. [facility] Medicine Services PROGRESS NOTE Patient [...] Buenrostro 04/07/2025 9:58 AM EDT Workstation ID: [id number] I have personally reviewed the therapy plans: [...] Jason Álvarez, DO 04/08/25 * Hamilton, Larisa, [facility] - 04/08/2025 11:48 AM EDT [...] mg Daily 04/05/2025 -- Route: Oral heparin 45555 units/250 mL (100 units/mL) in 0.45 % [...] INFECTIOUS DISEASE Progress Note Won Dennis 1980 [id number] Date of Consult: 04/08/2025 Admission Date: 04/04/2025 [...] IRRIGATION; Surgeon: Sushil Dean Jr., MD; Location: [facility] OR; Service: Orthopedics; Laterality: Right; PLACEMENT OF WOUND VAC Right 04/07/2025 Procedure: WOUND VACUUM ASSISTED CLOSURE; Surgeon: Sushil Dean Jr., MD; Location: [facility] OR; Service: Orthopedics; Laterality: Right; History [...] Oral, Q6H PRN, 500 mg at 04/06/25 5124 OR acetaminophen (TYLENOL) 160 MG/5ML oral solution [...] 0.4 mg, Intravenous, Q5 Min PRN, Sushil Daen Jr., MD ferrous sulfate tablet 325 mg, 325 mg, Oral, BID, Sushil Dean Jr., MD, 325 mg at 04/07/25950 furosemide (LASIX) tablet 20 mg, 20 mg, Oral, Daily, Sushil Dean Jr., MD, 20 mg at 04/07/25950 heparin 50800 units/250 mL (100 units/mL) in 0.45 % [...] Units Date/Time FL C Arm During Surgery [[id number]] Resulted: 04/07/252137 Updated: 04/07/252137 Narrative: This procedure was auto-finalized with no dictation required. MRI Tibia Fibula Right With & Without Contrast [[id number]] Collected: 04/07/25 0938 Updated: 04/07/25 1001 Narrative: [...] Buenrostro 04/07/2025 9:58 AM EDT Workstation ID: [id number] Impression: 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 (Treated by ID in [place] Dr. Harris). Dr. Torres treated him with [...] from the original note were not included. [facility] Medicine Services PROGRESS NOTE Patient [...] Buenrostro 04/07/2025 9:58 AM EDT Workstation ID: [id number] I have personally reviewed the therapy plans: [...] Jason DO Preeti 04/07/25 * Larisa Hamilton, [facility] - 04/07/2025 11:56 AM EDT [...] INFECTIOUS DISEASE Progress Note Won Dennis 1980 [id number] Date of Consult: 04/07/2025 Admission Date: 04/04/2025 [...] MD, 20 mg at 04/06/25 0900 heparin 62039 units/250 mL (100 units/mL) in 0.45 % NaCl infusion, 18 Units/kg/hr, Intravenous, Titrated, Cherri Beatty, [facility], Last Rate: 24.1 mL/hr at [...] With & Without Contrast - In process [[id number]] Resulted: 04/07/25828 Updated: 04/07/25828 This result has not been signed. Information might be incomplete. MRI Tibia Fibula Right With & Without Contrast [[id number]] Collected: 04/04/252256 Updated: 04/04/253 Narrative: MRI TIBIA [...] represent a small area of phlegmonous change (nrnujh15 image 10) measuring approximately 1.6 cm which [...] MD 04/04/2025 11:00 PM EDT Workstation ID: [id number] Impression: 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 (Treated by ID in [place] Dr. Harris). Dr. Torres treated him with [...] mg Daily 04/05/2025 -- Route: Oral heparin 35280 units/250 mL (100 units/mL) in 0.45 % [...] 04/07/25 06:07 EDT * Cherri Beatty [facility] - 04/06/2025 1:47 PM EDT [...] from the original note were not included. [facility] Medicine Services PROGRESS NOTE Patient [...] MD 04/04/2025 11:00 PM EDT Workstation ID: [id number] I have personally reviewed the therapy plans: [...] mg Daily 04/05/2025 -- Route: Oral heparin 23540 units/250 mL (100 units/mL) in 0.45 % [...] INFECTIOUS DISEASE follow up. Won Dennis 1980 [id number] Date of Consult: 04/06/2025 Admission Date: 04/04/2025 [...] MD, 20 mg at 04/06/25 0900 heparin 13556 units/250 mL (100 units/mL) in 0.45 % NaCl infusion, 18 Units/kg/hr, Intravenous, Titrated, Cherri Beatty [facility], Last Rate: 24.1 mL/hr at [...] , Not Applicable, PRN, Leonora Shehperd MD saccharomyces boulardii (FLORASTOR) capsule 250 mg, [...] Tibia Fibula Right With & Without Contrast [[id number]] Collected: 04/04/252256 Updated: 04/04/252302 Narrative: MRI TIBIA [...] represent a small area of phlegmonous change (bxxxwo12 image 10) measuring approximately 1.6 cm which [...] MD 04/04/2025 11:00 PM EDT Workstation ID: [id number] Impression: 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 (Treated by ID in [place] Dr. Harris). Dr. Torres treated him with [...] from the original note were not included. [facility] Medicine Services PROGRESS NOTE Patient [...] MD 04/04/2025 11:00 PM EDT Workstation ID: [id number] I have personally reviewed the therapy plans: [...] from the original note were not included. [facility] Medicine Services HISTORY AND PHYSICAL [...] MD 04/04/2025 11:00 PM EDT Workstation ID: [id number] Assessment & Plan Assessment & Plan Won [...] PICC placed by Rhoda Bonner RN [facility], tip verified by 3CG see LDA. 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 [...] was evaluated in the emergency department in [place], was discharged with instructions for follow-up. He [...] mouth Daily. 04/03/2025 Morning Lactobacillus-Inulin ([facility]) capsule Take 200 mg by mouth [...] MD 04/04/2025 11:00 PM EDT Workstation ID: [id number] Assessment: Right BKA infection 44-year-old male with [...] DISEASE CONSULT/INITIAL HOSPITAL VISIT Won Dennis 1980 [id number] Date of Consult: 04/05/2025 Admission Date: 04/04/2025 [...] Leonora Shepherd MD, 40 mg at 04/04/25 7900 sennosides-docusate (PERICOLACE) 8.6-50 MG per tablet 2 [...] MD, 20 mg at 04/05/25 09 heparin 07092 units/250 mL (100 units/mL) in 0.45 % [...] Leonora Shepherd MD, 10 mg at 04/04/25 4242 Pharmacy to Dose Heparin, , Not Applicable, [...] Tibia Fibula Right With & Without Contrast [[id number]] Collected: 04/04/252256 Updated: 04/04/252302 Narrative: MRI TIBIA [...] MD 04/04/2025 11:00 PM EDT Workstation ID: [id number] Impression: 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 (Treated by ID in [place] Dr. Harris). Dr. Torres treated him with [...] [facility] OPERATIVE REPORT PATIENT NAME: oWn Dennis DATE OF : 1980 PREOP DIAGNOSIS: Right Right below-knee amputation infection POSTOP DIAGNOSIS: Same. PROCEDURE: Right Right 99100: Secondary closure below-knee amputation SURGEON: Sushil Dean MD OPERATIVE TEAM: Quality Control Assistant: Susi Grullon RN Scrub Person: Mary Paredes Scrub Person Extra: Hortencia Toribio Other: Katt Gotti RN; Charis Neville RN ANESTHETIST: Anesthesiologist: Ulises Hoffman MD BEER COOLER: Stan Casillas CRNA Student Nurse [place] Repairer: Karol Albert SRNA ANESTHESIA: Choice ESTIMATED [...] CULTURE (Canceled) Sushil Dean Jr., MD 04/08/25 4416 Description: RIGHT LEG DEEP WOUND FOR CULTURE [...] Jr., MD - 04/07/2025 9:03 PM EDT [facility], [place] [address] OPERATIVE REPORT PATIENT NAME: Won Dennis DATE OF : 1980 PREOP DIAGNOSIS: Right Right below knee amputation stump infection POSTOP DIAGNOSIS: Same. PROCEDURE: Right Right 53846: Incision and drainage of surgical site infection 37254: Debridement of skin, subcutaneous tissue, muscle 04337: Wound vacuum-assisted closure SURGEON: Sushil Dean MD OPERATIVE TEAM: Quality Control Assistant: Anum Sanchez RN Scrub Person: Hortencia Toribio; Gerald Ivey DIRECTOR ASSET: Anesthesiologist: Luci Alonso DO ANESTHESIA: General ESTIMATED [...] this chart in the absence of a debt management counselor. No orders to display RADIOLOGY: [x] [...] is discharging home with outpatient infusion at [facility]. He has an appointment with [facility] at 8:00 am tomorrow. They will do [...] to get IV ABX at home with [facility]; however, Medicaid lapsed on 04/08. DEBRA was unaware until this morning that Medicaid has lapsed. Patient explained that he has Medicare A and B. CM spoke with KELLEE and given themhis Medicare number [id number], she sent it to Admission. DEBRA spoke with Kerri, with [facility], and explained that he had [...] changes and lab work. DEBRA called [facility] they can accept patient and start him. He is known for their facility. The Facility will need to run it through his insurance first. CM faxed the orders over to [facility] at [phone]. CM will follow up with them tomorrow at [facility] to make sure they received the orders. [...] 04/09/2025 2:51 PM EDT Continued Stay Note [facility] Patient Name: Won Dennis Today's Date: 04/09/2025 Admit Date: 04/04/2025 Plan: Home Discharge Plan Row Name 04/09/25 1311 Plan Plan Home Patient/Family in Agreement with Plan yes Plan Comments CM spoke with patient at bedside today. Wheelchair from [employer] is at bedside. Patient getting PICC line [...] note were not included. 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 Patient lives with and his 5 kids in [facility] [facility]. 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 He has walker, cane, shower chair, and crutches. He requested a wheelchair for home. CM will order wheelchair [facility]. He is not current with home health services. PCP is Dr. Jordan. Insurance is [employer] [place]. Patient discharge plan is home with [facility] transport. CM will follow for any discharge needs. Final Discharge Disposition Code 01 - home or self-care Continued Care and Services - Admitted Since 04/04/2025 No active coordination exists. Demographic Summary Row Name 04/07/25 1143 General Information Arrived From hospital Preferred Language Colombian Functional Status Row Name 04/07/25 1143 Functional [...] - 10.80 10*3/mm3 04/11/2025 4:02 AM EDT [facility] RBC 4.70 4.14 - 5.80 10*6/mm3 04/11/2025 4:02 AM [facility] Hemoglobin 12.8(L) 13.0 - 17.7 g/dL 04/11/2025 4:02 AM [facility] Hematocrit 40.5 37.5 - 51.0 % 04/11/2025 4:02 AM [facility] MCV 86.2 79.0 - 97.0 fL 04/11/2025 4:02 AM [facility] MCH 27.2 26.6 - 33.0 pg 04/11/2025 4:02 AM [facility] MCHC 31.6 31.5 - 35.7 g/dL 04/11/2025 4:02 AM [facility] RDW 12.9 12.3 - 15.4 % 04/11/2025 4:02 AM [facility] RDW-SD 40.5 37.0 - 54.0 fl 04/11/2025 4:02 AM [facility] MPV 9.2 6.0 - 12.0 fL 04/11/2025 4:02 AM [facility] Platelets 267 140 - 450 [...] 0.3 - 6.2 % 04/11/2025 4:02 AM [facility] Basophil % 0.4 0.0 - 1.5 % 04/11/2025 4:02 AM [facility] Immature Grans % 0.4 0.0 - 0.5 % 04/11/2025 4:02 AM [facility] Neutrophils, Absolute 4.69 1.70 - 7.00 10*3/mm3 04/11/2025 4:02 AM EDT [facility] Lymphocytes, Absolute 2.07 0.70 - 3.10 10*3/mm3 04/11/2025 4:02 AM EDT [facility] Monocytes, Absolute 0.73 0.10 - 0.90 10*3/mm3 04/11/2025 4:02 AM EDT [facility] Eosinophils, Absolute 0.32 0.00 - 0.40 10*3/mm3 04/11/2025 4:02 AM EDT [facility] Basophils, Absolute 0.03 0.00 - 0.20 10*3/mm3 04/11/2025 4:02 AM EDT [facility] Immature Grans, Absolute 0.03 0.00 - 0.05 10*3/mm3 04/11/2025 4:02 AM EDT [facility] nRBC 0.0 0.0 - 0.2 /100 WBC 04/11/2025 4:02 AM EDT [facility] Blood Venipuncture / Unknown 04/11/2025 3:40 AM EDT 04/11/2025 3:59 AM EDT us Sushil Dean Jr., MD LAB BLOOD ORDERABLES Fi nal Result [facility]
[address] [place] [address], * (ABNORMAL) Comprehensive Metabolic Panel (04/11/2025 3:40 AM EDT) [facility] Signature Glucose 108(H) 65 - 99 mg/dL 04/11/2025 4:19 AM EDT [facility] BUN 12.5 6.0 - 20.0 mg/dL 04/11/2025 4:19 AM EDT [facility] Creatinine 0.68(L) 0.76 - 1.27 mg/dL 04/11/2025 4:19 AM [facility] Sodium 140 136 - 145 mmol/L 04/11/2025 4:19 AM [facility] Potassium 3.8 3.5 - 5.2 mmol/L 04/11/2025 4:19 AM [facility] Chloride 105 98 - 107 mmol/L 04/11/2025 4:19 AM [facility] CO2 28.2 22.0 - 29.0 mmol/L 04/11/2025 4:19 AM [facility] Calcium 8.2(L) 8.6 - 10.5 mg/dL 04/11/2025 4:19 AM [facility] Total Protein 6.1 6.0 - 8.5 g/dL 04/11/2025 4:19 AM [facility] Albumin 3.1(L) 3.5 - 5.2 g/dL 04/11/2025 4:19 AM [facility] ALT (SGPT) 52(H) 1 - 41 U/L 04/11/2025 4:19 AM [facility] AST (SGOT) 40 1 - 40 U/L 04/11/2025 4:19 AM [facility] Alkaline Phosphatase 99 39 - 117 U/L 04/11/2025 4:19 AM [facility] Total Bilirubin 0.2 0.0 - 1.2 mg/dL 04/11/2025 4:19 AM [facility] Globulin 3.0 gm/dL 04/11/2025 4:19 AM [facility] Comment:Calculated Result A/G Ratio 1.0 g/dL 04/11/2025 4:19 AM [facility] BUN/Creatinine Ratio 18.4 7.0 - 25.0 04/11/2025 4:19 AM [facility] Anion Gap 6.8 5.0 - 15.0 mmol/L 04/11/2025 4:19 AM [facility] eGFR 117.5 >60.0 mL/min/1.7 3 04/11/2025 4:19 AM EDT [facility] Blood Venipuncture / Unknown 04/11/2025 3:40 AM EDT 04/11/2025 3:56 AM EDT [facility] - 04/11/2025 4:19 AM EDT [...] include race as a factor Rosario Hill [employer] LAB BLOOD ORDERABLES Final Result [facility]
[address] [place] [address], * (ABNORMAL) CBC Auto Differential (04/10/2025 3:46 AM EDT) WBC 9.60 3.40 - 10.80 10*3/mm3 04/10/2025 3:56 AM EDT [facility] RBC 4.67 4.14 - 5.80 10*6/mm3 04/10/2025 3:56 AM EDT [facility] Hemoglobin 12.9(L) 13.0 - 17.7 g/dL 04/10/2025 3:56 AM EDT [facility] Hematocrit 40.1 37.5 - 51.0 % 04/10/2025 3:56 AM EDT [facility] MCV 85.9 79.0 - 97.0 fL 04/10/2025 3:56 AM EDT [facility] MCH 27.6 26.6 - 33.0 pg 04/10/2025 3:56 AM EDT [facility] MCHC 32.2 31.5 - 35.7 g/dL 04/10/2025 3:56 [address] [facility] RDW 12.9 12.3 - 15.4 % 04/10/2025 3:56 AM [facility] RDW-SD 40.5 37.0 - 54.0 fl 04/10/2025 3:56 AM [facility] MPV 9.5 6.0 - 12.0 fL 04/10/2025 3:56 AM EDT [facility] Platelets 227 140 - 450 10*3/mm3 04/10/2025 3:56 AM [facility] Neutrophil % 59.1 42.7 - 76.0 % 04/10/2025 3:56 AM [facility] Lymphocyte % 29.0 19.6 - 45.3 % 04/10/2025 3:56 AM [facility] Monocyte % 8.1 5.0 - 12.0 % 04/10/2025 3:56 [address] [facility] Eosinophil % 3.2 0.3 - 6.2 % 04/10/2025 3:56 AM [facility] Basophil % 0.4 0.0 - 1.5 % 04/10/2025 3:56 AM [facility] Immature Grans % 0.2 0.0 - 0.5 % 04/10/2025 3:56 AM [facility] Neutrophils, Absolute 5.67 1.70 - 7.00 10*3/mm3 04/10/2025 3:56 AM [facility] Lymphocytes, Absolute 2.78 0.70 - 3.10 10*3/mm3 04/10/2025 3:56 AM [facility] Monocytes, Absolute 0.78 0.10 - 0.90 10*3/mm3 04/10/2025 3:56 AM [facility] Eosinophils, Absolute 0.31 0.00 - 0.40 10*3/mm3 04/10/2025 3:56 AM [facility] Basophils, Absolute 0.04 0.00 - 0.20 10*3/mm3 04/10/2025 3:56 AM EDT [facility] Immature Grans, Absolute 0.02 0.00 - 0.05 10*3/mm3 04/10/2025 3:56 AM EDT [facility] nRBC 0.0 0.0 - 0.2 /100 WBC 04/10/2025 3:56 AM EDT [facility] Blood Venipuncture / Unknown 04/10/2025 3:46 AM EDT 04/10/2025 3:53 AM EDT us Jason Álvarez DO LAB BLOOD ORDERABLES Final Resul t [facility]
[address] [place] [address], * (ABNORMAL) Basic Metabolic Panel (04/10/2025 3:46 AM EDT) Glucose 125(H) 65 - 99 mg/dL 04/10/2025 4:20 AM EDT [facility] BUN 15.9 6.0 - 20.0 mg/dL 04/10/2025 4:20 AM EDT [facility] Creatinine 0.77 0.76 - 1.27 mg/dL 04/10/2025 4:20 AM EDT [facility] Sodium 137 136 - 145 mmol/L 04/10/2025 4:20 AM EDT [facility] Potassium 3.9 3.5 - 5.2 mmol/L 04/10/2025 4:20 AM EDT [facility] Chloride 102 98 - 107 mmol/L 04/10/2025 4:20 AM EDT [facility] CO2 26.9 22.0 - 29.0 mmol/L 04/10/2025 4:20 AM EDT [facility] Calcium 7.9(L) 8.6 - 10.5 mg/dL 04/10/2025 4:20 AM EDT [facility] BUN/Creatinine Ratio 20.6 7.0 - 25.0 04/10/2025 4:20 AM EDT [facility] Anion Gap 8.1 5.0 - 15.0 mmol/L 04/10/2025 4:20 AM EDT [facility] eGFR 113.2 >60.0 mL/min/1.7 3 04/10/2025 4:20 AM EDT [facility] Blood Venipuncture / Unknown 04/10/2025 3:46 AM EDT 04/10/2025 3:52 AM EDT Narrative [facility] - 04/10/2025 4:20 AM [...] DO LAB BLOOD ORDERABLES Final Resul t [facility]
[address] [place] [address], * Heparin Anti-Xa (04/10/2025 3:46 AM EDT) Heparin Anti-Xa ([facility]) 0.35 0.30 - 0.70 IU/ml 04/10/2025 4:23 AM EDT [facility] Blood Venipuncture / Unknown 04/10/2025 3:46 AM EDT 04/10/2025 3:53 AM EDT Larisa Hamilton [facility] LAB BLOOD ORDERABLES Final R esult [facility]
[address] [place] [address], * Heparin Anti-Xa (04/09/2025 10:05 AM EDT) Pathologist [facility] Heparin Anti-Xa (UFH) 0.36 0.30 - 0.70 IU/ml 04/09/2025 11:12 AM EDT [facility] Blood Venipuncture / Unknown 04/09/2025 10:05 AM EDT 04/09/2025 10:47 AM EDT Larisa Hamilton [facility] LAB BLOOD ORDERABLES Final R esult [facility]
[address] [place] [address], * (ABNORMAL) CBC Auto Differential (04/09/2025 4:18 AM EDT) Pathologist [facility] WBC 11.00(H) 3.40 - 10.80 10*3/mm3 04/09/2025 4:50 AM EDT [facility] RBC 4.70 4.14 - 5.80 10*6/mm3 04/09/2025 4:50 AM EDT [facility] Hemoglobin 13.0 13.0 - 17.7 g/dL 04/09/2025 4:50 AM EDT [facility] Hematocrit 40.4 37.5 - 51.0 % 04/09/2025 4:50 AM EDT [facility] MCV 86.0 79.0 - 97.0 fL 04/09/2025 4:50 AM EDT [facility] MCH 27.7 26.6 - 33.0 pg 04/09/2025 4:50 AM EDT [facility] MCHC 32.2 31.5 - 35.7 g/dL 04/09/2025 4:50 AM EDT [facility] RDW 12.8 12.3 - 15.4 % 04/09/2025 4:50 AM [facility] RDW-SD 39.9 37.0 - 54.0 fl 04/09/2025 4:50 AM [facility] MPV 10.0 6.0 - 12.0 fL 04/09/2025 4:50 AM [facility] Platelets 211 140 - 450 10*3/mm3 04/09/2025 4:[address] [facility] Neutrophil % 74.8 42.7 - 76.0 % 04/09/2025 4:50 AM [facility] Lymphocyte % 15.4(L) 19.6 - 45.3 % 04/09/2025 4:50 AM [facility] Monocyte % 8.5 5.0 - 12.0 % 04/09/2025 4:50 AM [facility] Eosinophil % 0.6 0.3 - 6.2 % 04/09/2025 4:50 AM [facility] Basophil % 0.4 0.0 - 1.5 % 04/09/2025 4:50 AM [facility] Immature Grans % 0.3 0.0 - 0.5 % 04/09/2025 4:50 AM [facility] Neutrophils, Absolute 8.23(H) 1.70 - 7.00 10*3/mm3 04/09/2025 4:50 AM [facility] Lymphocytes, Absolute 1.69 0.70 - 3.10 10*3/mm3 04/09/2025 4:50 AM [facility] Monocytes, Absolute 0.94(H) 0.10 - 0.90 10*3/mm3 04/09/2025 4:[address] [facility] Eosinophils, Absolute 0.07 0.00 - 0.40 10*3/mm3 04/09/2025 4:50 AM [facility] Basophils, Absolute 0.04 0.00 - 0.20 10*3/mm3 04/09/2025 4:50 AM [facility] Immature Grans, Absolute 0.03 0.00 - 0.05 10*3/mm3 04/09/2025 4:50 AM EDT [facility] nRBC 0.0 0.0 - 0.2 /100 WBC 04/09/2025 4:50 AM EDT [facility] Blood Venipuncture / Unknown 04/09/2025 4:18 AM EDT 04/09/2025 4:31 AM EDT Sushil Dean Jr., MD LAB BLOOD ORDERABLES Fi nal Result [facility]
[address] [place] [address], * Heparin Anti-Xa (04/09/2025 4:18 AM EDT) Heparin Anti-Xa ([facility]) 0.41 0.30 - 0.70 IU/ml 04/09/2025 4:53 AM EDT [facility] Blood Venipuncture / Unknown 04/09/2025 4:18 AM EDT 04/09/2025 4:31 AM EDT Una LundbergD LAB BLOOD ORDERABLES Final R esult [facility]
[address] [place] [address], * (ABNORMAL) Basic Metabolic Panel (04/09/2025 4:18 AM EDT) Glucose 147(H) 65 - 99 mg/dL 04/09/2025 5:33 AM EDT [facility] BUN 23.0(H) 6.0 - 20.0 mg/dL 04/09/2025 5:33 AM EDT [facility] Creatinine 1.15 0.76 - 1.27 mg/dL 04/09/2025 5:33 AM EDT [facility] Sodium 135(L) 136 - 145 mmol/L 04/09/2025 5:33 AM EDT [facility] Potassium 4.2 3.5 - 5.2 mmol/L 04/09/2025 5:33 AM EDT [facility] Chloride 100 98 - 107 mmol/L 04/09/2025 5:33 AM EDT [facility] CO2 26.0 22.0 - 29.0 mmol/L 04/09/2025 5:33 AM EDT [facility] Calcium 8.2(L) 8.6 - 10.5 mg/dL 04/09/2025 5:33 AM EDT [facility] BUN/Creatinine Ratio 20.0 7.0 - 25.0 04/09/2025 5:33 AM EDT [facility] Anion Gap 9.0 5.0 - 15.0 mmol/L 04/09/2025 5:33 AM EDT [facility] eGFR 80.5 >60.0 mL/min/1.7 3 04/09/2025 5:33 AM EDT [facility] Blood Venipuncture / Unknown 04/09/2025 4:18 AM EDT 04/09/2025 4:29 AM EDT [facility] - 04/09/2025 5:33 AM EDT [...] MD LAB BLOOD ORDERABLES Fi nal Result [facility]
[address] [place] [address], * Wound Culture - Swab, Leg, Right (04/08/2025 3:40 PM EDT) Wound Culture No growth at 3 days ALIZA 04/11/2025 10:40 AM EDT [facility] Gram Stain Few (2+) WBCs seen 04/11/2025 10:40 AM EDT [facility] Gram Stain No organisms seen 04/11/2025 10:40 AM EDT [facility] Swab Structure of right lower limb / Unknown 04/08/2025 3:40 PM EDT 04/08/2025 8:05 PM EDT Sushil Dean Jr., MD MICROBIOLOGY - GENERAL ORDERABLES Final Result Performing Organization Address City/[facility]/ZIP Co de Phone Number [facility]
[address] [place] [address], [facility]
[address] [place] [address], * Anaerobic Culture - Swab, Leg, Right (04/08/2025 3:40 PM EDT) Pathologist [facility] Anaerobic Culture No anaerobes isolated at 5 days ALIZA 04/13/2025 7:24 AM EDT [facility] Swab Structure of right lower limb / Unknown 04/08/2025 3:40 PM EDT 04/08/2025 8:05 PM EDT Sushil Dean Jr., MD MICROBIOLOGY - GENERAL ORDERABLES Final Result [facility]
[address] [place] [address], * Scan Slide (04/08/2025 8:41 AM EDT) RBC Morphology Normal Normal 04/08/2025 11:02 AM EDT [facility] WBC Morphology Normal Normal 04/08/2025 11:02 AM EDT [facility] Platelet Estimate Adequate Normal 04/08/2025 11:02 AM EDT [facility] Clumped Platelets Present None Seen 04/08/2025 11:02 AM EDT [facility] Blood Venipuncture / Unknown 04/08/2025 8:41 AM EDT 04/08/2025 9:10 AM EDT Una Minda PharmD LAB BLOOD ORDERABLES Final R esult [facility]
[address] [place] [address], * (ABNORMAL) CBC Auto Differential (04/08/2025 8:41 AM EDT) WBC 10.07 3.40 - 10.80 10*3/mm3 04/08/2025 11:02 AM EDT [facility] RBC 5.01 4.14 - 5.80 10*6/mm3 04/08/2025 11:02 AM EDT [facility] Hemoglobin 14.0 13.0 - 17.7 g/dL 04/08/2025 11:02 AM EDT [facility] Hematocrit 42.7 37.5 - 51.0 % 04/08/2025 11:02 AM EDT [facility] MCV 85.2 79.0 - 97.0 fL 04/08/2025 11:02 AM EDT [facility] MCH 27.9 26.6 - 33.0 pg 04/08/2025 11:02 AM EDT [facility] MCHC 32.8 31.5 - 35.7 g/dL 04/08/2025 11:02 AM EDT [facility] RDW 12.6 12.3 - 15.4 % 04/08/2025 11:02 AM EDT [facility] RDW-SD 38.9 37.0 - [...] 1.70 - 7.00 10*3/mm3 04/08/2025 11:02 AM [facility] Lymphocytes, Absolute 0.94 0.70 - 3.10 10*3/mm3 04/08/2025 11:02 AM [facility] Monocytes, Absolute 0.46 0.10 - 0.90 10*3/mm3 04/08/2025 11:02 AM [facility] Eosinophils, Absolute 0.03 0.00 - 0.40 10*3/mm3 04/08/2025 11:02 AM [facility] Basophils, Absolute 0.02 0.00 - 0.20 10*3/mm3 04/08/2025 11:02 AM [facility] Immature Grans, Absolute 0.05 0.00 - 0.05 10*3/mm3 04/08/2025 11:02 AM EDT [facility] nRBC 0.0 0.0 - 0.2 /100 WBC 04/08/2025 11:02 AM EDT [facility] Blood Venipuncture / Unknown 04/08/2025 8:41 AM EDT 04/08/2025 9:10 AM EDT Una Perla PharmD LAB BLOOD ORDERABLES Final R esult [facility]
[address] [place] [address], * (ABNORMAL) Basic Metabolic Panel (04/08/2025 8:41 AM EDT) Glucose 125(H) 65 - 99 mg/dL 04/08/2025 9:51 AM EDT [facility] BUN 13.2 6.0 - 20.0 mg/dL 04/08/2025 9:51 AM EDT [facility] Creatinine 0.69(L) 0.76 - 1.27 mg/dL 04/08/2025 9:51 AM EDT [facility] Sodium 136 136 - 145 mmol/L 04/08/2025 9:51 AM EDT [facility] Potassium 4.6 3.5 - 5.2 mmol/L 04/08/2025 9:51 AM EDT [facility] Chloride 102 98 - 107 mmol/L 04/08/2025 9:51 AM EDT [facility] CO2 23.5 22.0 - 29.0 mmol/L 04/08/2025 9:51 AM EDT [facility] Calcium 8.4(L) 8.6 - 10.5 mg/dL 04/08/2025 9:51 AM EDT [facility] BUN/Creatinine Ratio 19.1 7.0 - 25.0 04/08/2025 9:51 AM EDT [facility] Anion Gap 10.5 5.0 - 15.0 mmol/L 04/08/2025 9:51 AM EDT [facility] eGFR 117.0 >60.0 mL/min/1.7 3 04/08/2025 9:51 AM EDT [facility] Blood Venipuncture / Unknown 04/08/2025 8:41 AM EDT 04/08/2025 9:09 AM EDT Narrative [facility] - 04/08/2025 9:51 AM [...] ORDERABLES Fi nal Result Performing Organization Address City/[facility]/ZIP Co de Phone Number [facility]
[address] [place] [address], * Heparin Anti-Xa (04/08/2025 8:41 AM EDT) Heparin Anti-Xa ([facility]FH) 0.33 0.30 - 0.70 IU/ml 04/08/2025 9:40 AM EDT [facility] Blood Venipuncture / Unknown 04/08/2025 8:41 AM EDT 04/08/2025 9:10 AM EDT us Sushil Dean Jr., MD LAB BLOOD ORDERABLES Fi nal Result [facility]
[address] [place] [address], * FL C Arm During Surgery (04/07/2025 [...] Occasional WBCs seen 04/11/2025 10:40 AM EDT [facility] Gram Stain No organisms seen 04/11/2025 10:40 AM EDT [facility] Swab Structure of right lower limb / Unknown Collection / Unknown 04/07/2025 9:14 PM EDT 04/08/2025 4:36 AM EDT us Sushil Dean Jr., MD MICROBIOLOGY - GENERAL ORDERABLES Final Result Performing Organization Address City/[facility]/ZIP Co de Phone Number [facility]
[address] [place] [address], [facility]
[address] [place] [address], * Anaerobic Culture - Swab, Leg, Right (04/07/2025 9:14 PM EDT) Anaerobic Culture No anaerobes isolated at 5 days ALIZA 04/13/2025 7:21 AM EDT [facility] Swab Structure of right lower limb / Unknown Collection / Unknown 04/07/2025 9:14 PM EDT 04/08/2025 4:36 AM EDT us Sushil Dean Jr., MD MICROBIOLOGY - GENERAL ORDERABLES Final Result [facility]
[address] [place] [address], * Anaerobic Culture - Tissue, Leg (04/07/2025 9:13 PM EDT) Pathologist [facility] Anaerobic Culture No anaerobes isolated at 5 days ALIZA 04/13/2025 7:21 AM EDT [facility] Tissue Lower limb structure / Unknown Collection / Unknown 04/07/2025 9:13 PM EDT 04/08/2025 4:54 AM EDT Jason Álvarez DO MICROBIOLOGY - GENERAL ORDERABLE S Final Result [facility]
[address] [place] [address], * Tissue / Bone Culture - Tissue, Leg, Right (04/07/2025 9:13 PM EDT) [facility] Tissue Culture No growth at 3 days ALIZA 04/11/2025 10:36 AM EDT [facility] Gram Stain Rare (1+) WBCs seen 04/11/2025 10:36 AM EDT [facility] Gram Stain No organisms seen 04/11/2025 10:36 AM EDT [facility] Tissue Structure of right lower limb / Unknown 04/07/2025 9:13 PM EDT 04/08/2025 4:54 AM EDT Sushil Dean Jr., MD MICROBIOLOGY - GENERAL ORDERABLES Final Result [facility]
[address] [place] [address], [facility]
[address] [place] [address], * (ABNORMAL) Wound Culture - Swab, Leg, Right (04/07/2025 9:07 PM EDT) Pathologist [facility] Wound Culture Light growth (2+) Staphylococcus aureus, MRSA(A) ALIZA 04/10/2025 10:38 AM EDT [facility] Comment: Methicillin resistant Staphylococcus aureus, Patient may be an isolation risk. Gram Stain Few (2+) WBCs seen 04/10/2025 10:38 AM EDT [facility] Gram Stain No organisms seen 10:38 AM EDT [facility] Swab Structure of right [...] Final Result [facility]
[address] [place] [address], [place] [phone] [facility]
[address] [place] [address], [place] [phone] * Anaerobic Culture - Swab, Leg, Right (04/07/2025 9:07 PM EDT) Anaerobic Culture No anaerobes isolated at 5 days ALIZA 04/13/2025 7:21 AM EDT [facility] Swab Structure of right lower limb / Unknown Collection / Unknown 04/07/2025 9:07 PM EDT 04/08/2025 4:36 AM EDT us Sushil Dean Jr., MD MICROBIOLOGY - GENERAL ORDERABLES Final Result [facility]
[address] [place] [address], * Heparin Anti-Xa (04/07/2025 9:10 AM EDT) [facility] Heparin Anti-Xa ([facility]) 0.30 0.30 - 0.70 IU/ml 04/07/2025 10:12 AM EDT [facility] Blood Venipuncture / Unknown 04/07/2025 9:10 AM EDT 04/07/2025 9:38 AM EDT Una Perla PharmD LAB BLOOD ORDERABLES Final R esult [facility]
[address] [place] [address], * (ABNORMAL) CBC Auto Differential (04/07/2025 9:10 AM EDT) [facility] WBC 8.63 3.40 - 10.80 10*3/mm3 04/07/2025 9:50 AM EDT [facility] RBC 5.23 4.14 - 5.80 10*6/mm3 04/07/2025 9:50 AM EDT [facility] Hemoglobin 14.7 13.0 - 17.7 g/dL 04/07/2025 9:50 AM EDT [facility] Hematocrit 44.8 37.5 - 51.0 % 04/07/2025 9:50 AM EDT [facility] MCV 85.7 79.0 - 97.0 fL 04/07/2025 9:50 AM EDT [facility] MCH 28.1 26.6 - 33.0 pg 04/07/2025 9:50 AM EDT [facility] MCHC 32.8 31.5 - 35.7 g/dL 04/07/2025 9:50 AM EDT [facility] RDW 12.8 12.3 - 15.4 % 04/07/2025 9:50 AM [facility] RDW-SD 39.9 37.0 - 54.0 fl 04/07/2025 9:50 AM [facility] MPV 10.8 6.0 - 12.0 fL 04/07/2025 9:50 AM [facility] Platelets 149 140 - 450 10*3/mm3 04/07/2025 9:50 AM [facility] Neutrophil % 66.7 42.7 - 76.0 % 04/07/2025 9:50 AM [facility] Lymphocyte % 20.5 19.6 - 45.3 % 04/07/2025 9:50 AM [facility] Monocyte % 9.8 5.0 - 12.0 % 04/07/2025 9:50 AM [facility] Eosinophil % 2.1 0.3 - 6.2 % 04/07/2025 9:50 AM [facility] Basophil % 0.3 0.0 - 1.5 % 04/07/2025 9:50 AM [facility] Immature Grans % 0.6(H) 0.0 - 0.5 % 04/07/2025 9:50 AM [facility] Neutrophils, Absolute 5.75 1.70 - 7.00 10*3/mm3 04/07/2025 9:50 AM [facility] Lymphocytes, Absolute 1.77 0.70 - 3.10 10*3/mm3 04/07/2025 9:50 AM [facility] Monocytes, Absolute 0.85 0.10 - 0.90 10*3/mm3 04/07/2025 9:50 AM [facility] Eosinophils, Absolute 0.18 0.00 - 0.40 10*3/mm3 04/07/2025 9:50 AM [facility] Basophils, Absolute 0.03 0.00 - 0.20 10*3/mm3 04/07/2025 9:50 AM [facility] LABORATORY Immature Grans, Absolute 0.05 0.00 - 0.05 10*3/mm3 04/07/2025 9:50 AM EDT [facility] nRBC 0.0 0.0 - 0.2 /100 WBC 04/07/2025 9:50 AM EDT [facility] Blood Venipuncture / Unknown 04/07/2025 9:10 AM EDT 04/07/2025 9:38 AM EDT Jasonalfonso Álvarez LAB BLOOD ORDERABLES Final Resul t [facility]
[address] [place] [address], * (ABNORMAL) Basic Metabolic Panel (04/07/2025 9:10 AM EDT) Glucose 112(H) 65 - 99 mg/dL 04/07/2025 10:19 AM EDT [facility] BUN 13.1 6.0 - 20.0 mg/dL 04/07/2025 10:19 AM EDT [facility] Creatinine 0.77 0.76 - 1.27 mg/dL 04/07/2025 10:19 AM EDT [facility] Sodium 139 136 - 145 mmol/L 04/07/2025 10:19 AM EDT [facility] Potassium 4.2 3.5 - 5.2 mmol/L 04/07/2025 10:19 AM EDT [facility] Comment:Specimen hemolyzed. Result may be falsely elevated. Chloride 105 98 - 107 mmol/L 04/07/2025 10:19 AM EDT [facility] CO2 24.8 22.0 - 29.0 mmol/L 04/07/2025 10:19 AM EDT [facility] Calcium 8.6 8.6 - 10.5 mg/dL 04/07/2025 10:19 AM EDT [facility] BUN/Creatinine Ratio 17.0 7.0 - 25.0 04/07/2025 10:19 AM EDT [facility] Anion Gap 9.2 5.0 - 15.0 mmol/L 04/07/2025 10:19 AM EDT [facility] eGFR 113.2 >60.0 mL/min/1.7 3 04/07/2025 10:19 AM EDT [facility] Blood Venipuncture / Unknown 04/07/2025 9:10 AM EDT 04/07/2025 9:38 AM EDT Narrative [facility] - 04/07/2025 10:19 AM [...] Álvarez LAB BLOOD ORDERABLES Final Resul t [facility]
[address] [place] [address], * MRI Tibia Fibula Right With & [...] [place] 04/07/2025 9:58 AM EDT Workstation ID: [id number] Narrative 04/07/2025 9:58 AM EDT MRI TIBIA [...] [place] 04/07/2025 9:58 AM EDT Workstation ID: [id number] Sushil Dean Jr., MD IM MRI ORDERABLES Mary Beth l Result * Heparin Anti-Xa (04/07/2025 1:42 AM EDT) [facility] Heparin Anti-Xa (UFH) 0.38 0.30 - 0.70 IU/ml 04/07/2025 2:14 AM EDT [facility] Blood Venipuncture / Unknown 04/07/2025 1:42 AM EDT 04/07/2025 1:54 AM EDT Chelsie Turpin [facility] LAB BLOOD ORDERABLES Final R esult [facility]
[address] [place] [address], * Heparin Anti-Xa (04/06/2025 7:16 PM EDT) [facility] Heparin Anti-Xa (UFH) 0.33 0.30 - 0.70 IU/ml 04/06/2025 7:50 PM EDT [facility] Blood Venipuncture / Unknown 04/06/2025 7:16 PM EDT 04/06/2025 7:35 PM EDT Cherri Beatty RP LAB BLOOD ORDERABLES Final Res ult Performing Organization Address City/[facility]/ZIP Co de Phone Number [facility]
[address] [place] [address], * Potassium (04/06/2025 7:16 PM EDT) Potassium 4.0 3.5 - 5.2 mmol/L 04/06/2025 7:53 PM EDT [facility] Blood Venipuncture / Unknown 04/06/2025 7:16 PM EDT 04/06/2025 7:35 PM EDT Jason Álvarez DO LAB BLOOD ORDERABLES Final Resul t Performing Organization Address [facility] de Phone Number [facility]
[address] [place] [address], * (ABNORMAL) Heparin Anti-Xa (04/06/2025 12:36 PM EDT) Heparin Anti-Xa (UFH) 0.24(L) 0.30 - 0.70 IU/ml 04/06/2025 1:23 PM EDT [facility] Blood Venipuncture / Unknown 04/06/2025 12:36 PM EDT 04/06/2025 1:07 PM EDT Una LundbergD LAB BLOOD ORDERABLES Final R esult Performing Organization Address [facility] Co de Phone Number [facility]
[address] [place] [address], * (ABNORMAL) Heparin Anti-Xa (04/06/2025 3:42 AM EDT) Heparin Anti-Xa (UFH) 0.25(L) 0.30 - 0.70 IU/ml 04/06/2025 5:30 AM EDT [facility] Blood Venipuncture / Unknown 04/06/2025 3:42 AM EDT 04/06/2025 4:59 AM EDT Chelsie Turpin [facility] LAB BLOOD ORDERABLES Final R esult [facility]
[address] [place] [address], * (ABNORMAL) Basic Metabolic Panel (04/06/2025 3:42 AM EDT) Pathologist [facility] Glucose 94 65 - 99 mg/dL 04/06/2025 5:59 AM EDT [facility] BUN 12.8 6.0 - 20.0 mg/dL 04/06/2025 5:59 AM EDT [facility] Creatinine 0.80 0.76 - 1.27 mg/dL 04/06/2025 5:59 AM EDT [facility] Sodium 138 136 - 145 mmol/L 04/06/2025 5:59 AM EDT [facility] Potassium 3.6 3.5 - 5.2 mmol/L 04/06/2025 5:59 AM EDT [facility] Chloride 103 98 - 107 mmol/L 04/06/2025 5:59 AM EDT [facility] CO2 24.2 22.0 - 29.0 mmol/L 04/06/2025 5:59 AM EDT [facility] Calcium 8.0(L) 8.6 - 10.5 mg/dL 04/06/2025 5:59 AM EDT [facility] BUN/Creatinine Ratio 16.0 7.0 - 25.0 04/06/2025 5:59 AM EDT [facility] Anion Gap 10.8 5.0 - 15.0 mmol/L 04/06/2025 5:59 AM EDT [facility] eGFR 111.9 >60.0 mL/min/1.7 3 04/06/2025 5:59 AM EDT [facility] Blood Venipuncture / Unknown 04/06/2025 3:42 AM EDT 04/06/2025 5:20 AM EDT [facility] - 04/06/2025 5:59 AM EDT [...] DO LAB BLOOD ORDERABLES Final Resul t [facility]
[address] [place] [address], * (ABNORMAL) CBC Auto Differential (04/06/2025 3:41 AM EDT) WBC 10.86(H) 3.40 - 10.80 10*3/mm3 04/06/2025 5:04 AM EDT [facility] RBC 5.08 4.14 - 5.80 10*6/mm3 04/06/2025 5:04 AM EDT [facility] Hemoglobin 13.9 13.0 - 17.7 g/dL 04/06/2025 5:04 AM EDT [facility] Hematocrit 43.7 37.5 - 51.0 % 04/06/2025 5:04 AM EDT [facility] MCV 86.0 79.0 - 97.0 fL 04/06/2025 5:04 AM [facility] MCH 27.4 26.6 - 33.0 pg 04/06/2025 5:04 AM [facility] MCHC 31.8 31.5 - 35.7 g/dL 04/06/2025 5:04 AM [facility] RDW 12.8 12.3 - 15.4 % 04/06/2025 5:04 AM [facility] RDW-SD 40.0 37.0 - 54.0 fl 04/06/2025 5:04 AM [facility] MPV 11.7 6.0 - 12.0 fL 04/06/2025 5:04 AM [facility] Platelets 115(L) 140 - 450 10*3/mm3 04/06/2025 5:04 AM [facility] Neutrophil % 65.3 42.7 - 76.0 % 04/06/2025 5:04 AM [facility] Lymphocyte % 20.5 19.6 - 45.3 % 04/06/2025 5:04 AM [facility] Monocyte % 11.8 5.0 - 12.0 % 04/06/2025 5:04 AM [facility] Eosinophil % 1.8 0.3 - 6.2 % 04/06/2025 5:04 AM [facility] Basophil % 0.3 0.0 - 1.5 % 04/06/2025 5:04 AM [facility] Immature Grans % 0.3 0.0 - 0.5 % 04/06/2025 5:04 AM [facility] Neutrophils, Absolute 7.09(H) 1.70 - 7.00 10*3/mm3 04/06/2025 5:04 AM [facility] Lymphocytes, Absolute 2.23 0.70 - 3.10 10*3/mm3 04/06/2025 5:04 AM [facility] Monocytes, Absolute 1.28(H) 0.10 - 0.90 10*3/mm3 04/06/2025 5:04 AM EDT [facility] Eosinophils, Absolute 0.20 0.00 - 0.40 10*3/mm3 04/06/2025 5:04 AM EDT [facility] Basophils, Absolute 0.03 0.00 - 0.20 10*3/mm3 04/06/2025 5:04 AM EDT [facility] Immature Grans, Absolute 0.03 0.00 - 0.05 10*3/mm3 04/06/2025 5:04 AM EDT [facility] nRBC 0.0 0.0 - 0.2 /100 WBC 04/06/2025 5:04 AM EDT [facility] Blood Venipuncture / Unknown 04/06/2025 3:41 AM EDT 04/06/2025 4:58 AM EDT Jason Álvarez DO LAB BLOOD ORDERABLES Final Resul t Performing Organization Address City/[facility]/ZIP Co de Phone Number [facility]
[address] [place] [address], [place] [phone] * Heparin Anti-Xa (04/05/2025 8:43 PM EDT) [facility] Heparin Anti-Xa (UFH) 0.38 0.30 - 0.70 IU/ml 04/05/2025 9:09 PM EDT [facility] Blood Venipuncture / Unknown 04/05/2025 8:43 PM EDT 04/05/2025 8:55 PM EDT us Cherri Beatty [facility] LAB BLOOD ORDERABLES Final Res ult Performing Organization Address City/[facility]/ZIP Co de Phone Number [facility]
[address] [place] [address], [place] [phone] * CK (04/05/2025 12:15 PM EDT) Pathologist [facility] Creatine Kinase 140 20 - 200 U/L 04/05/2025 1:31 PM EDT [facility] Blood Venipuncture / Unknown 04/05/2025 12:15 PM EDT 04/05/2025 1:03 PM EDT Carlton Mead MD LAB BLOOD ORDERABLES Final R esult Performing Organization Address City/[facility]/ZIP Co de Phone Number [facility]
[address] [place] [address], * (ABNORMAL) Heparin Anti-Xa (04/05/2025 12:15 PM EDT) Heparin Anti-Xa (UFH) 0.17(L) 0.30 - 0.70 IU/ml 04/05/2025 1:21 PM EDT [facility] Blood Venipuncture / Unknown 04/05/2025 12:15 PM EDT 04/05/2025 1:04 PM EDT Una Perla PharmD LAB BLOOD ORDERABLES Final R esult [facility]
[address] [place] [address], * (ABNORMAL) aPTT (04/05/2025 3:54 AM EDT) PTT 35.3(L) 60.0 - 90.0 seconds 04/05/2025 4:31 AM EDT [facility] Blood Venipuncture / Unknown 04/05/2025 3:54 AM EDT 04/05/2025 4:15 AM EDT Narrative [facility] - 04/05/2025 4:31 AM EDT PTT = The equivalent PTT values for the therapeutic range of heparin levels at 0.3 to 0.5 U/ml are 60 to 70 seconds. Una Perla PharmD LAB BLOOD ORDERABLES Final R esult [facility]
[address] [place] [address], * Heparin Anti-Xa (04/05/2025 3:54 AM EDT) Pathologist [facility] Heparin Anti-Xa (UFH) 0.30 0.30 - 0.70 IU/ml 04/05/2025 4:32 AM EDT [facility] Blood Venipuncture / Unknown 04/05/2025 3:54 AM EDT 04/05/2025 4:15 AM EDT Una Curious SenseD LAB BLOOD ORDERABLES Final R esult Performing Organization Address City/[facility]/ZIP Co de Phone Number [facility]
[address] [place] [address], * (ABNORMAL) CBC Auto Differential (04/05/2025 3:54 AM EDT) Pathologist [facility] WBC 11.18(H) 3.40 - 10.80 10*3/mm3 04/05/2025 4:20 AM EDT [facility] RBC 5.00 4.14 - 5.80 10*6/mm3 04/05/2025 4:20 AM EDT [facility] Hemoglobin 13.9 13.0 - 17.7 g/dL 04/05/2025 4:20 AM EDT [facility] Hematocrit 42.4 37.5 - 51.0 % 04/05/2025 4:20 AM EDT [facility] MCV 84.8 79.0 - 97.0 fL 04/05/2025 4:20 AM EDT [facility] MCH 27.8 26.6 - 33.0 pg 04/05/2025 4:20 AM EDT [facility] MCHC 32.8 31.5 - [...] 42.7 - 76.0 % 04/05/2025 4:20 AM [facility] Lymphocyte % 14.0(L) 19.6 - 45.3 % 04/05/2025 4:20 AM [facility] Monocyte % 11.0 5.0 - 12.0 % 04/05/2025 4:20 AM [facility] Eosinophil % 0.8 0.3 - 6.2 % 04/05/2025 4:20 AM [facility] Basophil % 0.3 0.0 - 1.5 % 04/05/2025 4:20 AM [facility] Immature Grans % 0.4 0.0 - 0.5 % 04/05/2025 4:20 AM [facility] Neutrophils, Absolute 8.23(H) 1.70 - 7.00 10*3/mm3 04/05/2025 4:20 AM [facility] Lymphocytes, Absolute 1.56 0.70 - 3.10 10*3/mm3 04/05/2025 4:20 AM [facility] Monocytes, Absolute 1.23(H) 0.10 - 0.90 10*3/mm3 04/05/2025 4:20 AM [facility] Eosinophils, Absolute 0.09 0.00 - 0.40 10*3/mm3 04/05/2025 4:20 AM [facility] Basophils, Absolute 0.03 0.00 - 0.20 10*3/mm3 04/05/2025 4:20 AM EDT [facility] Immature Grans, Absolute 0.04 0.00 - 0.05 10*3/mm3 04/05/2025 4:20 AM EDT [facility] nRBC 0.0 0.0 - 0.2 /100 WBC 04/05/2025 4:20 AM EDT [facility] Blood Venipuncture / Unknown 04/05/2025 3:54 AM EDT 04/05/2025 4:16 AM EDT Una Perla PharmD LAB BLOOD ORDERABLES Final R esult [facility]
[address] [place] [address], * (ABNORMAL) Basic Metabolic Panel (04/05/2025 3:54 AM EDT) Glucose 152(H) 65 - 99 mg/dL 04/05/2025 4:40 AM EDT [facility] BUN 17.3 6.0 - 20.0 mg/dL 04/05/2025 4:40 AM EDT [facility] Creatinine 0.92 0.76 - 1.27 mg/dL 04/05/2025 4:40 AM EDT [facility] Sodium 136 136 - 145 mmol/L 04/05/2025 4:40 AM EDT [facility] Potassium 3.9 3.5 - 5.2 mmol/L 04/05/2025 4:40 AM EDT [facility] Chloride 103 98 - 107 mmol/L 04/05/2025 4:40 AM EDT [facility] CO2 24.0 22.0 - 29.0 mmol/L 04/05/2025 4:40 AM EDT [facility] Calcium 7.8(L) 8.6 - 10.5 mg/dL 04/05/2025 4:40 AM EDT [facility] BUN/Creatinine Ratio 18.8 7.0 - 25.0 04/05/2025 4:40 AM EDT [facility] Anion Gap 9.0 5.0 - 15.0 mmol/L 04/05/2025 4:40 AM EDT [facility] eGFR 105.2 >60.0 mL/min/1.7 3 04/05/2025 4:40 AM EDT [facility] Blood Venipuncture / Unknown 04/05/2025 3:54 AM EDT 04/05/2025 4:15 AM EDT [facility] - 04/05/2025 4:40 AM EDT [...] MD LAB BLOOD ORDERABLES Final Re sult [facility]
[address] [place] [address], * (ABNORMAL) aPTT (04/05/2025 12:18 AM EDT) PTT 33.6(L) 60.0 - 90.0 seconds 04/05/2025 12:53 AM EDT [facility] Blood Venipuncture / Unknown 04/05/2025 12:18 AM EDT 04/05/2025 12:37 AM EDT [facility] - 04/05/2025 12:53 AM EDT PTT = The equivalent PTT values for the therapeutic range of heparin levels at 0.3 to 0.5 U/ml are 60 to 70 seconds. TournEase PharmD LAB BLOOD ORDERABLES Final R esult Performing Organization Address City/[facility]/ZIP Co de Phone Number [facility]
[address] [place] [address], * (ABNORMAL) Protime-INR (04/05/2025 12:18 AM EDT) Protime 15.9(H) 12.2 - 15.3 Seconds 04/05/2025 12:53 AM EDT [facility] INR 1.19(H) 0.89 - 1.12 04/05/2025 12:53 AM EDT [facility] Blood Venipuncture / Unknown 04/05/2025 12:18 AM EDT 04/05/2025 12:37 AM EDT TournEase PharmD LAB BLOOD ORDERABLES Final R esult Performing Organization Address [facility] Co de Phone Number [facility]
[address] [place] [address], * Heparin Anti-Xa (04/05/2025 12:18 AM EDT) Pathologist [facility] Heparin Anti-Xa (UFH) 0.39 0.30 - 0.70 IU/ml 04/05/2025 12:54 AM EDT [facility] Blood Venipuncture / Unknown 04/05/2025 12:18 AM EDT 04/05/2025 12:37 AM EDT TournEase PharmD LAB BLOOD ORDERABLES Final R esult Performing Organization Address City/[facility]/ZIP Co de Phone Number [facility]
[address] [place] [address], * MRI Tibia Fibula Right With & [...] MD 04/04/2025 11:00 PM EDT Workstation ID: [id number] Narrative 04/04/2025 11:00 PM EDT MRI TIBIA [...] MD 04/04/2025 11:00 PM EDT Workstation ID: [id number] Leonora Shepherd MD IMG MRI ORDERABLES Final Resu lt * POC Creatinine (04/04/2025 2:49 PM EDT) Creatinine 1.10 0.60 - 1.30 mg/dL 04/07/2025 7:14 PM EDT [facility] Comment:Serial Number: [id number]: [id number] Venous Blood 04/04/2025 2:49 PM EDT 04/07/2025 7:14 PM EDT Jason Álvarez DO POINT OF CARE TEST ORDERABLES Fi nal Result [facility]
[address] [place] [address], * (ABNORMAL) CBC Auto Differential (04/04/2025 2:47 PM EDT) [facility] WBC 12.72(H) 3.40 - 10.80 10*3/mm3 04/04/2025 2:56 PM EDT [facility] RBC 5.64 4.14 - 5.80 10*6/mm3 04/04/2025 2:56 PM EDT [facility] Hemoglobin 15.3 13.0 - 17.7 g/dL 04/04/2025 2:56 PM EDT [facility] Hematocrit 47.9 37.5 - 51.0 % 04/04/2025 2:56 PM EDT [facility] MCV 84.9 79.0 - 97.0 fL 04/04/2025 2:56 PM EDT [facility] MCH 27.1 26.6 - 33.0 pg 04/04/2025 2:56 PM EDT [facility] MCHC 31.9 31.5 - 35.7 g/dL 04/04/2025 2:56 PM EDT [facility] RDW 13.1 12.3 - 15.4 % 04/04/2025 2:56 PM EDT [facility] RDW-SD 40.3 37.0 - 54.0 fl 04/04/2025 2:56 PM EDT [facility] MPV 9.4 6.0 - 12.0 fL 04/04/2025 2:56 PM EDT [facility] Platelets 232 140 - 450 10*3/mm3 04/04/2025 2:56 PM EDT [facility] Neutrophil % 74.9 42.7 - 76.0 % 04/04/2025 2:56 PM EDT [facility] Lymphocyte % 13.1(L) 19.6 - 45.3 % 04/04/2025 2:56 PM EDT [facility] Monocyte % 11.2 5.0 - 12.0 % 04/04/2025 2:56 PM EDT [facility] Eosinophil % 0.4 0.3 - 6.2 % 04/04/2025 2:56 PM EDT [facility] Basophil % 0.2 0.0 - 1.5 % 04/04/2025 2:56 PM EDT [facility] Immature Grans % 0.2 0.0 - 0.5 % 04/04/2025 2:56 PM EDT [facility] Neutrophils, Absolute 9.52(H) 1.70 - 7.00 10*3/mm3 04/04/2025 2:56 PM EDT [facility] Lymphocytes, Absolute 1.66 0.70 - 3.10 10*3/mm3 04/04/2025 2:56 PM EDT [facility] Monocytes, Absolute 1.43(H) 0.10 - 0.90 10*3/mm3 04/04/2025 2:56 PM EDT [facility] Eosinophils, Absolute 0.05 0.00 - 0.40 10*3/mm3 04/04/2025 2:56 PM EDT [facility] Basophils, Absolute 0.03 0.00 - 0.20 10*3/mm3 04/04/2025 2:56 PM EDT [facility] Immature Grans, Absolute 0.03 0.00 - 0.05 10*3/mm3 04/04/2025 2:56 PM EDT [facility] nRBC 0.0 0.0 - 0.2 /100 WBC 04/04/2025 2:56 PM EDT [facility] Blood Venipuncture / Unknown 04/04/2025 2:47 PM EDT 04/04/2025 2:52 PM EDT us Mario Crowley DO LAB BLOOD ORDERABLES Fin al Result [facility]
[address] [place] [address], * (ABNORMAL) C-reactive Protein (04/04/2025 2:47 PM EDT) C-Reactive Protein 8.57(H) 0.00 - 0.50 mg/dL 04/04/2025 3:26 PM EDT [facility] Blood Venipuncture / Unknown 04/04/2025 2:47 PM EDT 04/04/2025 2:52 PM EDT [facility] Fin al Result Performing Organization Address City/[facility]/ZIP Co de Phone Number [facility]
[address] [place] [address], * (ABNORMAL) Sedimentation Rate (04/04/2025 2:47 PM EDT) Pathologist [facility] Sed Rate 51(H) 0 - 15 mm/hr 04/04/2025 3:06 PM EDT [facility] Blood Venipuncture / Unknown 04/04/2025 2:47 PM EDT 04/04/2025 2:52 PM EDT [facility] BLOOD ORDERABLES Fin al Result Performing Organization Address City/[facility] Co de Phone Number [facility]
[address] [place] [address], * Comprehensive Metabolic Panel (04/04/2025 2:47 PM EDT) Pathologist [facility] Glucose 90 65 - 99 mg/dL 04/04/2025 3:26 PM EDT [facility] BUN 18.3 6.0 - 20.0 mg/dL 04/04/2025 3:26 PM EDT [facility] Creatinine 0.94 0.76 - 1.27 mg/dL 04/04/2025 3:26 PM EDT [facility] Sodium 136 136 - 145 mmol/L 04/04/2025 3:26 PM EDT [facility] Potassium 3.8 3.5 - 5.2 mmol/L 04/04/2025 3:26 PM EDT [facility] Chloride 100 98 - 107 mmol/L 04/04/2025 3:26 PM EDT [facility] CO2 25.3 22.0 - 29.0 mmol/L 04/04/2025 3:26 PM EDT [facility] Calcium 8.6 8.6 - 10.5 mg/dL 04/04/2025 3:26 PM T [facility] Total Protein 7.3 6.0 - 8.5 g/dL 04/04/2025 3:26 PM EDT [facility] Albumin 4.1 3.5 - 5.2 g/dL 04/04/2025 3:26 PM T [facility] ALT (SGPT) 26 1 - 41 U/L 04/04/2025 3:26 PM [facility] AST (SGOT) 25 1 - 40 U/L 04/04/2025 3:26 PM T [facility] Alkaline Phosphatase 106 39 - 117 U/L 04/04/2025 3:26 PM T [facility] Total Bilirubin 1.0 0.0 - 1.2 mg/dL 04/04/2025 3:26 PM T [facility] Globulin 3.2 gm/dL 04/04/2025 3:26 PM [facility] Comment:Calculated Result A/G Ratio 1.3 g/dL 04/04/2025 3:26 PM [facility] BUN/Creatinine Ratio 19.5 7.0 - 25.0 04/04/2025 3:26 PM [facility] Anion Gap 10.7 5.0 - 15.0 mmol/L 04/04/2025 3:26 PM [facility] eGFR 102.5 >60.0 mL/min/1.7 3 04/04/2025 3:26 PM [facility] Blood Venipuncture / Unknown 04/04/2025 2:47 PM EDT 04/04/2025 2:52 PM EDT [facility] - 04/04/2025 3:26 PM [...] DO LAB BLOOD ORDERABLES Fin al Result [facility]
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
--- OUTSIDE RECORDS SUMMARY | 2025-04-07 19:36 | XMS_ITS | Encounter Summary ---
Author Organization [facility] Address [address] [place] [address] Care Team Providers Care Dry Primer Powder Blender Name Role Phone Provider, No Known Primary Care Provider Unavail able Reason for Visit * Auth/Cert Specialty Diagnoses / Procedures Referred By Bulmaro muniz Referred To Contact Diagnoses Right BKA infection Referral ID Status Reason Start Date Expiration Date Visits Re quested Visits Authorized [id number] 1 1 Encounter Details Date Type Department Care Team (Late st Contact Info) Description 04/07/2025 8:36 PM EDT Anesthesia Event [facility] OR [address] [place] [address] Luci Alonso DO [address] [place] [address] Anesthesia Record Procedure Summary Procedure Name Responsible [...] 0.6 oz pur e alcohol) [facility] Utilities Answer Date Recorded In the past 12 months has [employer], gas, oil, or water [employer] threatened to shut off services in your [...] or training? Not on file Preferred Language Romanian 04/07/2025 Sex and Gender Information Value Date [...] 04/07/25 Room / Location: [facility] / [facility] OR Anesthesia Start: 2035 Anesthesia Stop: 2149 [...] PACU on O2NC, breathing comfortably. Report to INJECTION MAINTENANCE TECHNICIAN at bedside. VSS. * Anesthesia Procedure Notes [...] Musculoskeletal Abdominal Substance History - negative use SEWER CONTRACTOR Other ROS/Med Hx Other: Eliquis 04/04/25 Hgb 14.7 k 43.2 Factor 2 on eliquis +gerd Anesthesia Plan ASA 3 - emergent general Rapid sequence (Risks and benefits of general anesthesia discussed with patient (including [place], CVA, , recall,aspiration, oropharyngeal/dental damage), questions answered, agreeable to proceed. ) intravenous induction Anesthetic plan, risks, benefits, and alternatives have been provided, discussed and informed consent has been obtained with: patient. Plan discussed with WIRE TRANSFER CLERK. CODE STATUS: Code Status (Patient has no [...] documented as of this encounter Care Teams Dry Primer Powder Blender Relationship Specialty Start Date End Date Provider, No Known [facility] [place] [address] PCP - General 05/09/23 documented as of this encounter
--- OUTSIDE RECORDS SUMMARY | 2025-04-08 13:45 | XMS_ITS | Encounter Summary ---
[facility] Address [address] [place] [address] Care Team Providers Care Vocational Nurse Lvn Name Role Phone Provider, No Known Primary Care Provider Unavail able Reason for Visit * Reason Comments Leg Swelling * Auth/Cert Specialty Diagnoses / Procedures Referred By Contac t Referred To Contact Diagnoses Right BKA infection Referral ID Status Reason Start Date Expiration Date Visits Re quested Visits Authorized [id number] 1 1 Encounter Details Date Type Department Care Team (Late st Contact Info) Description 04/08/2025 2:45 PM EDT - 04/08/2025 4:04 PM EDT Surgery [facility] OR [address] [place] [address] Sushil Dean Jr., MD [address] [place] [address] [address] [id number] LEG DEBRIDEMENT AND IRRIGATION Social History Tobacco Use Types Packs/Day Years Used Date Smoking Tobacco: Never Smokeless Tobacco: Never Tobacco Cessation:Counseling Given: Not Answered Alcohol Use Standard Drinks/Week Comments Not Currently 0 (1 standard drink = 0.6 oz pur e alcohol) [facility] Utilities Answer Date Recorded In the past 12 months has [employer] electric, gas, oil, or water company threatened [...] or training? Not on file Preferred Language Icelandic 04/07/2025 Sex and Gender Information Value Date [...] 2:25 PM EDT Cherri Grimm RN * [place] Suicide Severity Rating Scale (Screener/Recent Self-Report) Question [...] Date/Time Wound Culture - Swab, Leg, Right [[id number]] (Abnormal) (Susceptibility) Collected: 04/07/252106 Lab Status: Final [...] Units Date/Time FL C Arm During Surgery [[id number]] Resulted: 04/07/252137 Updated: 04/07/252137 Narrative: This procedure was auto-finalized with no dictation required. MRI Tibia Fibula Right With & Without Contrast [[id number]] Collected: 04/07/25 0938 Updated: 04/07/25 1001 Narrative: [...] Buenrostro 04/07/2025 9:58 AM EDT Workstation ID: [id number] MRI Tibia Fibula Right With & Without Contrast [[id number]] Collected: 04/04/252256 Updated: 04/04/252302 Narrative: MRI TIBIA [...] MD 04/04/2025 11:00 PM EDT Workstation ID: [id number] Pending Labs Order Current Status Fungus Culture [...] Male) Date of 1980 Social Security Number [id number] [place] [address] [place] [address] Hoahaoism Unknown Marital Status Unknown Admission Date 04/04/2025 Admission Type Emergency Admitting Provider Jadyn Richardson DO Attending Provider Jadyn Richardson DO Department, Room/Bed [facility] 5G, S565/1 Discharge Date Discharge Disposition Discharge Destination Attending Provider: Jadyn Richardson DO Allergies: Ceftin [Cefuroxime], Keflex [Cephalexin], Latex Isolation: None Infection: MRSA (05/11/23) Code Status: CPR Ht: 180.3 cm (71 ) Wt: 134 kg (295 lb) Admission Cmt: None 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 Insurance as of 04/04/2025 Primary Coverage Payor Plan Insurance Group Employer/Plan Group [place] [id number] Payor Plan Address Payor Plan Phone Number Payor Plan Fax Number Effective Dates [employer] [address] [address] 08/10/2023 - None Entered [facility] [address] Subscriber Name Subscriber Date Member ID WON DENNIS 1980 [id number] Emergency Contacts Underwater Photographer (Rel.) Home Phone Work Phone Mobile Phone Avril Dennis (Spouse) -- -- [phone] Robert Hackett (Relative) -- -- [phone] [facility] 5G [address] [facility] [address] Patient: ROOM: [facility] Won Dennis [address] [facility] [place] [place] [address] : 1980 SSN: [id number] Sex: M PCP: Provider, No Known Emergency Contact Information Name Relation Home Work Mobile Avril Dennis Spouse [phone] Other Contacts Name Relation Home Work Mobile Robert Hackett Relative [phone] INSURANCE PAYOR PLAN GROUP # SUBSCRIBER ID Primary: Secondary: MEDICARE [place] [id number] Admitting Diagnosis: 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 Outpatient intravenous antibiotic therapy: Daptomycin 800 mg IV daily [facility] supplied [facility] 2. Home health to perform [...] INFECTIOUS DISEASE Progress Note Won Dennis 1980 [id number] Date of Consult: 04/10/2025 Admission Date: 04/04/2025 [...] Jr., MD, 20 mg at 04/09/25906 heparin 34421 units/250 mL (100 units/mL) in 0.45 % [...] mg/500 mL 0.9% NS IVPB ([facility]) Ordering Provider: Mario Crowley, DO 20 [...] Units Date/Time FL C Arm During Surgery [[id number]] Resulted: 04/07/252137 Updated: 04/07/252137 Narrative: This procedure was auto-finalized with no dictation required. MRI Tibia Fibula Right With & Without Contrast [[id number]] Collected: 04/07/2538 Updated: 04/07/25 1001 Narrative: MRI [...] Buenrostro 04/07/2025 9:58 AM EDT Workstation ID: [id number] Impression: Recurrent Right BKA stump abscess/cellulitis- this [...] discussed his disposition with the pharmacist at [facility] today. I will sign off Outpatient orders: 1. Outpatient intravenous antibiotic therapy: Daptomycin 800 mg IV daily to be supplied by [facility] 2. Home health to perform [...] 04/10/251323 Creation Time: 04/10/251323 Signed Expand All [facility] Medicine Services PROGRESS NOTE Patient Name: Won [...] Date/Time Wound Culture - Swab, Leg, Right [[id number]] (Abnormal) (Susceptibility) Collected: 04/07/252106 Lab Status: Final [...] Row Name 04/06/25 1143 Sit-Stand Transfer Sit-Stand Att[place] (Transfers) modified independence - Comment, (Sit-Stand Transfer) Pt stood from recliner. Not holding onto walker, pt able to pull his pants up while balancing on his one leg. -LM Row Name 04/06/25 1143 Gait/Stairs (Locomotion) [place] Level (Gait) modified independence - Distance in [...] bilateral lower extremity ROM WFL -LM [facility] Name 04/06/25 1145 Strength Comprehensive (MMT) General Manual Muscle Testing (MMT) Assessment no strength deficits identified BLEs -LM [facility] Name 04/06/25 1145 Balance Balance [...] at d/c. PT signing off. -LM [facility] Name 04/06/25 1146 Therapy Assessment/Plan (PT) Criteria for Skilled Interventions Met (PT) no;no problems identified which require skilled intervention -LM Therapy Frequency (PT) evaluation only -LM Predicted Duration of Therapy Intervention (PT) Eval Only -LM [facility] Name 04/06/25 1146 Vital Signs Pretreatment Heart Rate (beats/min) 86 -LM Posttreatment Heart Rate (beats/min) 96 -LM Pre SpO2 (%) 95 -LM O2 Delivery Pre Treatment room air -LM Post SpO2 (%) 96 -LM O2 Delivery Post Treatment room air -LM Pre Patient Position Sitting -LM Post Patient Position Sitting -LM [facility] Name 04/06/25 1146 Positioning and [...] Nurse Physical Therapy Education Title: PT OT VIDEO AND SOUND RECORDER Therapies (Done) Topic: Physical Therapy (Done) Point: [...] Description Service Date Service Provider Modifiers Qty [id number] PT EVAL LOW COMPLEXITY 3 04/06/2025 Susan [...] mg Daily 04/05/2025 -- Route: Oral heparin 18742 units/250 mL (100 units/mL) in 0.45 % [...] 22 [facility] [address], [address] [facility], [address] Please schedule at [phone] VONDA Garcia 04/11/25 08:32 EDT Cosigned by [...] Date/Time Wound Culture - Swab, Leg, Right [[id number]] (Abnormal) (Susceptibility) Collected: 04/07/252106 Lab Status: Final [...] mg Daily 04/05/2025 -- Route: Oral heparin 47486 units/250 mL (100 units/mL) in 0.45 % [...] 22 [facility] [address] [facility], [address] [facility], [address] Please schedule at [phone] VONDA Garcia 04/10/25 09:01 EDT Cosigned by Sushil Dean Jr., MD at 04/19/2025 10:33 AM EDT Associated attestation - Sushil Dean Jr., MD - 04/19/2025 10:33 AM EDT I have reviewed this documentation and agree. * Carlton Mead MD - 04/10/2025 7:38 AM EDT Images from the original note were not included. INFECTIOUS DISEASE Progress Note Won Dennis 1980 [id number] Date of Consult: 04/10/2025 Admission Date: 04/04/2025 [...] IRRIGATION; Surgeon: Sushil Dean Jr., MD; Location: [facility] OR; Service: Orthopedics; Laterality: Right; PLACEMENT OF WOUND VAC Right 04/07/2025 Procedure: WOUND VACUUM ASSISTED CLOSURE; Surgeon: Sushil Dean Jr., MD; Location: [facility] OR; Service: Orthopedics; Laterality: Right; WOUND CLOSURE [...] Jr., MD, 20 mg at 04/09/25906 heparin 30133 units/250 mL (100 units/mL) in 0.45 % [...] Units Date/Time FL C Arm During Surgery [[id number]] Resulted: 04/07/252137 Updated: 04/07/252137 Narrative: This procedure was auto-finalized with no dictation required. MRI Tibia Fibula Right With & Without Contrast [[id number]] Collected: 04/07/25937 Updated: 04/07/25 100 Narrative: MRI [...] Buenrostro 04/07/2025 9:58 AM EDT Workstation ID: [id number] Impression: Recurrent Right BKA stump abscess/cellulitis- this [...] discussed his disposition with the pharmacist at [facility] today. I will sign off Outpatient orders: 1. Outpatient intravenous antibiotic therapy: Daptomycin 800 mg IV daily to be supplied by [facility] 2. Home health to perform [...] 04/10/2025 07:38 EDT * Larisa Hamilton [facility] - 04/10/2025 7:17 AM EDT Pharmacy to [...] Date/Time Wound Culture - Swab, Leg, Right [[id number]] (Abnormal) Collected: 04/07/252106 Lab Status: Preliminary result [...] Álvarez DO 04/09/25 * Larisa Hamilton [facility] - 04/09/2025 11:36 AM EDT Pharmacy to [...] Instructions: Open Order & Select [facility] Electrolyte Replacement Protocol Algorithm to View [...] mg Daily 04/05/2025 -- Route: Oral heparin 45254 units/250 mL (100 units/mL) in 0.45 % [...] Instructions: Open Order & Select [facility] Electrolyte Replacement Protocol Algorithm to View [...] radiographs [facility] [address] [facility], [address] [facility], [address] Please schedule at [phone] VONDA Garcia 04/09/25 09:18 EDT Cosigned by Sushil Dean Jr., MD at 04/19/2025 10:33 AM EDT Associated attestation - Sushil Dean Jr., MD - 04/19/2025 10:33 AM EDT I have reviewed this documentation and agree. * Carlton Mead MD - 04/09/2025 8:25 AM EDT Images from the original note were not included. INFECTIOUS DISEASE Progress Note Won Dennis 1980 [id number] Date of Consult: 04/09/2025 Admission Date: 04/04/2025 [...] Sushil Dean Jr., MD; [facility]; Service: Orthopedics; Laterality: Right; PLACEMENT OF WOUND VAC Right 04/07/2025 Procedure: WOUND VACUUM ASSISTED CLOSURE; Surgeon: Sushil Dean Jr., MD; Location: [facility] OR; Service: Orthopedics; Laterality: Right; History [...] MD, 20 mg at 04/08/25 0800 heparin 67110 units/250 mL (100 units/mL) in 0.45 % [...] Units Date/Time FL C Arm During Surgery [[id number]] Resulted: 04/07/252137 Updated: 04/07/252137 Narrative: This procedure was auto-finalized with no dictation required. MRI Tibia Fibula Right With & Without Contrast [[id number]] Collected: 04/07/25 0938 Updated: 04/07/25 1001 Narrative: [...] Chitra 04/07/2025 9:58 AM EDT Workstation ID: [id number] Impression: Recurrent Right BKA stump abscess/cellulitis- this [...] mg IV daily to be [facility] 2. Home health to perform [...] Buenrostro 04/07/2025 9:58 AM EDT Workstation ID: [id number] I have personally reviewed the therapy plans: [...] Álvarez, DO 04/08/25 * Hamilton, Larisa, [facility] - 04/08/2025 11:48 AM EDT Pharmacy to [...] Instructions: Open Order & [facility] Electrolyte Replacement Protocol Algorithm to View [...] mg Daily 04/05/2025 -- Route: Oral heparin 09806 units/250 mL (100 units/mL) in 0.45 % [...] INFECTIOUS DISEASE Progress Note Won Dennis 1980 [id number] Date of Consult: 04/08/2025 Admission Date: 04/04/2025 [...] IRRIGATION; Surgeon: Sushil Dean Jr., MD; Location: [facility] OR; Service: Orthopedics; Laterality: Right; PLACEMENT OF WOUND VAC Right 04/07/2025 Procedure: WOUND VACUUM ASSISTED CLOSURE; Surgeon: Sushil Dean Jr., MD; Location: [facility] OR; Service: Orthopedics; Laterality: Right; History [...] Oral, Q6H PRN, 500 mg at 04/06/25 5644 OR acetaminophen (TYLENOL) 160 MG/5ML oral solution [...] Jr., MD, 20 mg at 04/07/25950 heparin 09727 units/250 mL (100 units/mL) in 0.45 % [...] mg/500 mL 0.9% NS IVPB ([facility]) Ordering Provider: Mario Crowley, DO 20 [...] Units Date/Time FL C Arm During Surgery [[id number]] Resulted: 04/07/252137 Updated: 04/07/252137 Narrative: This procedure was auto-finalized with no dictation required. MRI Tibia Fibula Right With & Without Contrast [[id number]] Collected: 04/07/25 0938 Updated: 04/07/25 1001 Narrative: [...] Buenrostro 04/07/2025 9:58 AM EDT Workstation ID: [id number] Impression: Right BKA stump cellulitis- s/p BKA with multiple surgical interventions with Known MRSA 05/09/2025. (Treated by ID in [place] Dr. Harris). Dr. Torres treated him with [...] Buenrostro 04/07/2025 9:58 AM EDT Workstation ID: [id number] I have personally reviewed the therapy plans: [...] DO Preeti 04/07/25 * Larisa Hamilton, [facility] - 04/07/2025 11:56 AM EDT Pharmacy to [...] INFECTIOUS DISEASE Progress Note Won Dennis 1980 [id number] Date of Consult: 04/07/2025 Admission Date: 04/04/2025 [...] MD, 20 mg at 04/06/25 0900 heparin 68489 units/250 mL (100 units/mL) in 0.45 % NaCl infusion, 18 Units/kg/hr, Intravenous, Titrated, Cherri Beatty, [facility], Last Rate: 24.1 mL/hr at 04/07/258, 18 [...] With & Without Contrast - In process [[id number]] Resulted: 04/07/25828 Updated: 04/07/25828 This result has not been signed. Information might be incomplete. MRI Tibia Fibula Right With & Without Contrast [[id number]] Collected: 04/04/252256 Updated: 04/04/253 Narrative: MRI TIBIA [...] represent a small area of phlegmonous change ([id number] image 10) measuring approximately 1.6 cm which [...] MD 04/04/2025 11:00 PM EDT Workstation ID: [id number] Impression: Right BKA stump cellulitis- s/p BKA with multiple surgical interventions with Known MRSA 05/09/2025. (Treated by ID in [place] Dr. Harris). Dr. Torres treated him with [...] Instructions: Open Order & Select [facility] Electrolyte Replacement Protocol Algorithm to View [...] mg Daily 04/05/2025 -- Route: Oral heparin 13945 units/250 mL (100 units/mL) in 0.45 % [...] Instructions: Open Order & Select [facility] Electrolyte Replacement Protocol Algorithm to View [...] 04/07/25 06:07 EDT * Cherri Beatty [facility] - 04/06/2025 1:47 PM EDT Pharmacy to [...] MD 04/04/2025 11:00 PM EDT Workstation ID: [id number] I have personally reviewed the therapy plans: [...] mg Daily 04/05/2025 -- Route: Oral heparin 99137 units/250 mL (100 units/mL) in 0.45 % [...] Instructions: Open Order & Select [facility] Electrolyte Replacement Protocol Algorithm to View [...] Instructions: Open Order & Select [facility] Electrolyte Replacement Protocol Algorithm to View [...] INFECTIOUS DISEASE follow up. Won Dennis 1980 [id number] Date of Consult: 04/06/2025 Admission Date: 04/04/2025 [...] tablet 325 mg, 325 mg, Oral, BID, Leonroa Shepherd MD, 325 mg at 04/06/25 0859 furosemide (LASIX) tablet 20 mg, 20 mg, Oral, Daily, Leonora Shepherd MD, 20 mg at 04/06/25 0900 heparin 47174 units/250 mL (100 units/mL) in 0.45 % NaCl infusion, 18 Units/kg/hr, Intravenous, Titrated, Cherri Beatty [facility], Last Rate: 24.1 mL/hr at 04/06/25 1420, [...] Tibia Fibula Right With & Without Contrast [[id number]] Collected: 04/04/252256 Updated: 04/04/252302 Narrative: MRI TIBIA [...] MD 04/04/2025 11:00 PM EDT Workstation ID: [id number] Impression: Right BKA stump cellulitis- s/p BKA with multiple surgical interventions with Known MRSA 05/09/2025. (Treated by ID in [place] Dr. Harris). Dr. Torres treated him with [...] MD 04/04/2025 11:00 PM EDT Workstation ID: [id number] I have personally reviewed the therapy plans: [...] MD 04/04/2025 11:00 PM EDT Workstation ID: [id number] Assessment & Plan Assessment & Plan Won [...] ORTHOPEDIC SURGERY [facility], [facility] [address] [address] Orthopedic Consult Patient: Won Dennis Date of [...] was evaluated in the emergency department in [place], was discharged with instructions for follow-up. He [...] Morning Lactobacillus-Inulin ([facility]) capsule Take 200 mg by mouth [...] MD 04/04/2025 11:00 PM EDT Workstation ID: [id number] Assessment: Right BKA infection 44-year-old male with [...] DISEASE CONSULT/INITIAL HOSPITAL VISIT Won Dennis 1980 [id number] Date of Consult: 04/05/2025 Admission Date: 04/04/2025 [...] Leonora Shepherd MD, 40 mg at 04/04/25 4168 sennosides-docusate (PERICOLACE) 8.6-50 MG per tablet 2 [...] MD, 20 mg at 04/05/25 09 heparin 01826 units/250 mL (100 units/mL) in 0.45 % [...] Leonora Shepherd MD, 10 mg at 04/04/25 5888 Pharmacy to Dose Heparin, , Not Applicable, [...] Tibia Fibula Right With & Without Contrast [[id number]] Collected: 04/04/252256 Updated: 04/04/252302 Narrative: MRI TIBIA [...] represent a small area of phlegmonous change ([id number] image 10) measuring approximately 1.6 cm which [...] MD 04/04/2025 11:00 PM EDT Workstation ID: [id number] Impression: Right BKA stump cellulitis- s/p BKA with multiple surgical interventions with Known MRSA 05/09/2025. (Treated by ID in [place] Dr. Harris). Dr. Torres treated him with [...] pain medication given Taken 04/08/20252036 by Bob Rosenebrg RN Pain Management Interventions: care clustered pain [...] Taken 04/09/2025 0000 by Bbo Rosenberg RN Safety Promotion/Fall Prevention: assistive device/personal [...] Jr., MD - 04/08/2025 3:51 PM EDT [facility] OPERATIVE REPORT PATIENT NAME: Won Dennis DATE OF : 1980 PREOP DIAGNOSIS: Right Right below-knee amputation infection POSTOP DIAGNOSIS: Same. PROCEDURE: Right Right 43736: Secondary closure below-knee amputation SURGEON: Sushil Dean MD OPERATIVE TEAM: Finnish [employer]: Susi Grullon RN Scrub Person: Mary Paredes Scrub Person Extra: Hortencia Toribio Other: Katt Gotti RN; Charis Neville RN ANESTHETIST: Anesthesiologist: Ulises Hoffman MD RETAIL PRESENTATION SPECIALIST: Stan Casillas CRNA Student Nurse Instrument Checker: Karol Albert SRNA ANESTHESIA: Choice ESTIMATED [...] CULTURE (Canceled) Sushil Dean Jr., MD 04/08/25 7869 Description: RIGHT LEG DEEP WOUND FOR CULTURE [...] PM EDT [facility], [place] [address] OPERATIVE REPORT PATIENT NAME: Won Dennis DATE OF : 1980 PREOP DIAGNOSIS: Right Right below knee amputation stump infection POSTOP DIAGNOSIS: Same. PROCEDURE: Right Right 81617: Incision and drainage of surgical site infection 00213: Debridement of skin, subcutaneous tissue, muscle 11711: Wound vacuum-assisted closure SURGEON: Sushil Dean MD OPERATIVE TEAM: Finnish Rubber: Anum Sanchez RN Scrub Person: Hortencia Toribio; Gerald Ivey COORDINATING PRODUCER: Anesthesiologist: Luci Alonso DO ANESTHESIA: General ESTIMATED [...] this chart in the absence of a solutions delivery consultant. No orders to display RADIOLOGY: [x] Radiologist's [...] to get IV ABX at home with [facility]; however, Medicaid lapsed on 04/08. DEBRA was unaware until this morning that Medicaid has lapsed. Patient explained that he has Medicare A and B. CM spoke with KELLEE and given themhis Medicare number [id number], she sent it to Admission. DEBRA spoke with Kerri, with [facility], and explained that he had Medicare A and B. However, it will not cover home infusion. It will be $64.00 a day out of packet. Patients can go to the Infusion center at [facility], and it will cover the cost as an outpatient. He will need to go there every day for infusion. They will be able to do the patients' PICC line dressing changes and lab work. DEBRA called [facility] Outpatient infusion center they can accept patient and start him. He is known for their facility. The Facility will need to run it through his insurance first. CM faxed the orders over to [facility] at [phone]. CM will follow up with them tomorrow [...] 04/09/2025 2:51 PM EDT Continued Stay Note [facility] Patient Name: Won Dennis Today's Date: 04/09/2025 Admit Date: 04/04/2025 Plan: Home Discharge Plan Row Name 04/09/25 1311 Plan Plan Home Patient/Family in Agreement with Plan yes Plan Comments CM spoke with patient at bedside today. Wheelchair from [employer] is at bedside. Patient getting PICC line [...] note were not included. 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 Patient lives with and his 5 kids in [facility]. 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 He has walker, cane, shower chair, and crutches. He requested a wheelchair for home. CM [facility]. He is not current with home health services. PCP is Dr. Jordan. Insurance is [employer] [place]. Patient discharge plan is home with priavte transport. CM will follow for any discharge needs. Final Discharge Disposition Code 01 - home or self-care Continued Care and Services - Admitted Since 04/04/2025 No active coordination exists. Demographic Summary Row Name 04/07/25 1143 General Information Arrived From hospital Preferred Language Icelandic Functional Status Row Name 04/07/25 1143 Functional [...] 3:4 0 PM EDT Right BKA infection MS SEC ABDOMINAL WALL SUTURE EVISCERATION/DEHSN 04/08/2025 3:20 [...] CBC Auto Differential (04/11/2025 3:40 AM EDT) [facility] WBC 7.87 3.40 - 10.80 10*3/mm3 04/11/2025 4:02 AM EDT [facility] RBC 4.70 4.14 - 5.80 10*6/mm3 04/11/2025 4:02 AM [facility] Hemoglobin 12.8(L) 13.0 - 17.7 g/dL 04/11/2025 4:02 AM [facility] Hematocrit 40.5 37.5 - 51.0 % 04/11/2025 4:02 AM [facility] MCV 86.2 79.0 - 97.0 fL 04/11/2025 4:02 AM [facility] MCH 27.2 26.6 - 33.0 pg 04/11/2025 4:02 AM [facility] MCHC 31.6 31.5 - 35.7 g/dL 04/11/2025 4:02 AM [facility] RDW 12.9 12.3 - 15.4 % 04/11/2025 4:02 AM [facility] RDW-SD 40.5 37.0 - 54.0 fl 04/11/2025 4:02 AM [facility] MPV 9.2 6.0 - 12.0 fL 04/11/2025 4:02 AM [facility] Platelets 267 140 - 450 [...] 0.0 - 1.5 % 04/[facility] Immature Grans % 0.4 0.0 - 0.5 % 04/11/2025 4:02 AM EDT [facility] Neutrophils, Absolute 4.69 1.70 - 7.00 10*3/mm3 04/11/2025 4:02 AM EDT [facility] Lymphocytes, Absolute 2.07 0.70 - 3.10 10*3/mm3 04/11/2025 4:02 AM EDT [facility] Monocytes, Absolute 0.73 0.10 - 0.90 10*3/mm3 04/11/2025 4:02 AM EDT [facility] [facility] Eosinophils, Absolute 0.32 0.00 - 0.40 10*3/mm3 04/11/2025 4:02 AM EDT [facility] Basophils, Absolute 0.03 0.00 - 0.20 10*3/mm3 04/11/2025 4:02 AM EDT [facility] Immature Grans, Absolute 0.03 0.00 - 0.05 10*3/mm3 04/11/2025 4:02 AM EDT [facility] nRBC 0.0 0.0 - 0.2 /100 WBC 04/11/2025 4:02 AM EDT [facility] Blood Venipuncture / Unknown 04/11/2025 3:40 AM EDT 04/11/2025 3:59 AM EDT us Sushil Dean Jr., MD LAB BLOOD ORDERABLES Fi nal Result [facility]
[address] [place] [address], * (ABNORMAL) Comprehensive Metabolic Panel (04/11/2025 3:40 AM EDT) Glucose 108(H) 65 - 99 mg/dL 04/11/2025 4:19 AM EDT [facility] BUN 12.5 6.0 - 20.0 mg/dL 04/11/2025 4:19 AM EDT [facility] Creatinine 0.68(L) 0.76 - 1.27 mg/dL 04/11/2025 4:19 AM [facility] Sodium 140 136 - 145 mmol/L 04/11/2025 4:19 AM [facility] Potassium 3.8 3.5 - 5.2 mmol/L 04/11/2025 4:19 AM [facility] Chloride 105 98 - 107 mmol/L 04/11/2025 4:19 AM [facility] CO2 28.2 22.0 - 29.0 mmol/L 04/11/2025 4:19 AM [facility] Calcium 8.2(L) 8.6 - 10.5 mg/dL 04/11/2025 4:19 AM [facility] Total Protein 6.1 6.0 - 8.5 g/dL 04/11/2025 4:19 AM [facility] Albumin 3.1(L) 3.5 - 5.2 g/dL 04/11/2025 4:19 AM [facility] ALT (SGPT) 52(H) 1 - 41 U/L 04/11/2025 4:19 AM [facility] AST (SGOT) 40 1 - 40 U/L 04/11/2025 4:19 AM [facility] Alkaline Phosphatase 99 39 - 117 U/L 04/11/2025 4:19 AM [facility] Total Bilirubin 0.2 0.0 - 1.2 mg/dL 04/11/2025 4:19 AM [facility] Globulin 3.0 gm/dL 04/11/2025 4:19 AM [facility] Comment:Calculated Result A/G Ratio 1.0 g/dL 04/11/2025 4:19 AM [facility] BUN/Creatinine Ratio 18.4 7.0 - 25.0 04/11/2025 4:19 AM [facility] Anion Gap 6.8 5.0 - 15.0 mmol/L 04/11/2025 4:19 AM [facility] eGFR 117.5 >60.0 mL/min/1.7 3 04/11/2025 4:19 AM EDT [facility] Blood Venipuncture / Unknown 04/11/2025 3:40 AM EDT 04/11/2025 3:56 AM EDT [facility] - 04/11/2025 4:19 AM [...] Hill APRN LAB BLOOD ORDERABLES Final Result [facility]
[address] [place] [address], * (ABNORMAL) CBC Auto Differential (04/10/2025 3:46 AM EDT) WBC 9.60 3.40 - 10.80 10*3/mm3 04/10/2025 3:56 AM EDT [facility] RBC 4.67 4.14 - 5.80 10*6/mm3 04/10/2025 3:56 AM EDT [facility] Hemoglobin 12.9(L) 13.0 - 17.7 g/dL 04/10/2025 3:56 AM EDT [facility] Hematocrit 40.1 37.5 - 51.0 % 04/10/2025 3:56 AM EDT [facility] MCV 85.9 79.0 - 97.0 fL 04/10/2025 3:56 AM EDT [facility] MCH 27.6 26.6 - 33.0 pg 04/10/2025 3:56 [facility] MCHC 32.2 31.5 - 35.7 g/dL 04/10/2025 3:56 AM EDT [facility] RDW 12.9 12.3 - 15.4 % 04/10/2025 3:56 [facility] RDW-SD 40.5 37.0 - 54.0 fl 04/10/2025 3:56 AM EDT [facility] MPV 9.5 6.0 - 12.0 fL 04/10/2025 3:56 AM EDT [facility] Platelets 227 140 - 450 10*3/mm3 04/10/2025 3:56 AM [facility] Neutrophil % 59.1 42.7 - 76.0 % 04/10/2025 3:56 AM [facility] Lymphocyte % 29.0 19.6 - 45.3 % 04/10/2025 3:56 [facility] Monocyte % 8.1 5.0 - 12.0 % 04/10/2025 3:56 AM [facility] Eosinophil % 3.2 0.3 - 6.2 % 04/10/2025 3:56 AM [facility] Basophil % 0.4 0.0 - 1.5 % 04/10/2025 3:56 AM [facility] Immature Grans % 0.2 0.0 - 0.5 % 04/10/2025 3:56 [facility] Neutrophils, Absolute 5.67 1.70 - 7.00 10*3/mm3 04/10/2025 3:56 AM [facility] Lymphocytes, Absolute 2.78 0.70 - 3.10 10*3/mm3 04/10/2025 3:56 AM [facility] Monocytes, Absolute 0.78 0.10 - 0.90 10*3/mm3 04/10/2025 3:56 AM [facility] Eosinophils, Absolute 0.31 0.00 - 0.40 10*3/mm3 04/10/2025 3:56 AM EDT [facility] Basophils, Absolute 0.04 0.00 - 0.20 10*3/mm3 04/10/2025 3:56 AM EDT [facility] Immature Grans, Absolute 0.02 0.00 - 0.05 10*3/mm3 04/10/2025 3:56 AM EDT [facility] nRBC 0.0 0.0 - 0.2 /100 WBC 04/10/2025 3:56 AM EDT [facility] Blood Venipuncture / Unknown 04/10/2025 3:46 AM EDT 04/10/2025 3:53 AM EDT us Jason Álvarez DO LAB BLOOD ORDERABLES Final Resul t [facility]
[address] [place] [address], * (ABNORMAL) Basic Metabolic Panel (04/10/2025 3:46 AM EDT) Glucose 125(H) 65 - 99 mg/dL 04/10/2025 4:20 AM EDT [facility] BUN 15.9 6.0 - 20.0 mg/dL 04/10/2025 4:20 AM EDT [facility] Creatinine 0.77 0.76 - 1.27 mg/dL 04/10/2025 4:20 AM EDT [facility] Sodium 137 136 - 145 mmol/L 04/10/2025 4:20 AM EDT [facility] Potassium 3.9 3.5 - 5.2 mmol/L 04/10/2025 4:20 AM EDT [facility] Chloride 102 98 - 107 mmol/L 04/10/2025 4:20 AM EDT [facility] CO2 26.9 22.0 - 29.0 mmol/L 04/10/2025 4:20 AM EDT [facility] Calcium 7.9(L) 8.6 - 10.5 mg/dL 04/10/2025 4:20 AM EDT [facility] BUN/Creatinine Ratio 20.6 7.0 - 25.0 04/10/2025 4:20 AM EDT [facility] Anion Gap 8.1 5.0 - 15.0 mmol/L 04/10/2025 4:20 AM EDT [facility] eGFR 113.2 >60.0 mL/min/1.7 3 04/10/2025 4:20 AM EDT [facility] Blood Venipuncture / Unknown 04/10/2025 3:46 AM EDT 04/10/2025 3:52 AM EDT Narrative [facility] - 04/10/2025 4:20 AM [...] DO LAB BLOOD ORDERABLES Final Resul t [facility]
[address] [place] [address], * Heparin Anti-Xa (04/10/2025 3:46 AM EDT) Heparin Anti-Xa (UFH) 0.35 0.30 - 0.70 IU/ml 04/10/2025 4:23 AM EDT [facility] Blood Venipuncture / Unknown 04/10/2025 3:46 AM EDT 04/10/2025 3:53 AM EDT Larisa Hamilton [facility] LAB BLOOD ORDERABLES Final R esult [facility]
[address] [place] [address], * Heparin Anti-Xa (04/09/2025 10:05 AM EDT) Pathologist [facility] [place] Heparin Anti-Xa (UFH) 0.36 0.30 - 0.70 IU/ml 04/09/2025 11:12 AM EDT [facility] Blood Venipuncture / Unknown 04/09/2025 10:05 AM EDT 04/09/2025 10:47 AM EDT Larisa Hamilton [facility] LAB BLOOD ORDERABLES Final R esult [facility]
[address] [place] [address], * (ABNORMAL) CBC Auto Differential (04/09/2025 4:18 AM EDT) Pathologist [facility] [place] WBC 11.00(H) 3.40 - 10.80 10*3/mm3 04/09/2025 4:50 AM EDT [facility] RBC 4.70 4.14 - 5.80 10*6/mm3 04/09/2025 4:50 AM EDT [facility] Hemoglobin 13.0 13.0 - 17.7 g/dL 04/09/2025 4:50 AM EDT [facility] Hematocrit 40.4 37.5 - 51.0 % 04/09/2025 4:50 AM EDT [facility] MCV 86.0 79.0 - 97.0 fL 04/09/2025 4:50 AM EDT [facility] MCH 27.7 26.6 - 33.0 pg 04/09/2025 4:50 AM EDT [facility] MCHC 32.2 31.5 - 35.7 g/dL 04/09/2025 4:50 AM EDT [facility] RDW 12.8 12.3 - 15.4 % 04/09/2025 4:50 AM [facility] RDW-SD 39.9 37.0 - 54.0 fl 04/09/2025 4:50 AM [facility] MPV 10.0 6.0 - 12.0 fL 04/09/2025 4:50 AM [facility] Platelets 211 140 - 450 10*3/mm3 04/09/2025 4:50 AM [facility] Neutrophil % 74.8 42.7 - 76.0 % 04/09/2025 4:50 AM [facility] Lymphocyte % 15.4(L) 19.6 - 45.3 % 04/09/2025 4:50 AM [facility] Monocyte % 8.5 5.0 - 12.0 % 04/09/2025 4:50 AM [facility] Eosinophil % 0.6 0.3 - 6.2 % 04/09/2025 4:50 AM [facility] Basophil % 0.4 0.0 - 1.5 % 04/09/2025 4:50 AM [facility] Immature Grans % 0.3 0.0 - 0.5 % 04/09/2025 4:50 AM [facility] Neutrophils, Absolute 8.23(H) 1.70 - 7.00 10*3/mm3 04/09/2025 4:50 AM [facility] Lymphocytes, Absolute 1.69 0.70 - 3.10 10*3/mm3 04/09/2025 4:50 AM [facility] Monocytes, Absolute 0.94(H) 0.10 - 0.90 10*3/mm3 04/09/2025 4:50 AM [facility] Eosinophils, Absolute 0.07 0.00 - 0.40 10*3/mm3 04/09/2025 4:50 [facility] Basophils, Absolute 0.04 0.00 - 0.20 10*3/mm3 04/09/2025 4:50 AM EDT [facility] Immature Grans, Absolute 0.03 0.00 - 0.05 10*3/mm3 04/09/2025 4:50 AM EDT [facility] nRBC 0.0 0.0 - 0.2 /100 WBC 04/09/2025 4:50 AM EDT [facility] Blood Venipuncture / Unknown 04/09/2025 4:18 AM EDT 04/09/2025 4:31 AM EDT Sushil Dean Jr., MD LAB BLOOD ORDERABLES Fi nal Result Performing Organization Address City/[facility]/ZIP Co de Phone Number [facility]
[address] [place] [address], * Heparin Anti-Xa (04/09/2025 4:18 AM EDT) Heparin Anti-Xa (UFH) 0.41 0.30 - 0.70 IU/ml 04/09/2025 4:53 AM EDT [facility] Blood Venipuncture / Unknown 04/09/2025 4:18 AM EDT 04/09/2025 4:31 AM EDT Una LundbergD LAB BLOOD ORDERABLES Final R esult [facility]
[address] [place] [address], * (ABNORMAL) Basic Metabolic Panel (04/09/2025 4:18 AM EDT) Glucose 147(H) 65 - 99 mg/dL 04/09/2025 5:33 AM EDT [facility] BUN 23.0(H) 6.0 - 20.0 mg/dL 04/09/2025 5:33 AM EDT [facility] Creatinine 1.15 0.76 - 1.27 mg/dL 04/09/2025 5:33 AM EDT [facility] Sodium 135(L) 136 - 145 mmol/L 04/09/2025 5:33 AM EDT [facility] Potassium 4.2 3.5 - 5.2 mmol/L 04/09/2025 5:33 AM EDT [facility] Chloride 100 98 - 107 mmol/L 04/09/2025 5:33 AM EDT [facility] CO2 26.0 22.0 - 29.0 mmol/L 04/09/2025 5:33 AM EDT [facility] Calcium 8.2(L) 8.6 - 10.5 mg/dL 04/09/2025 5:33 AM EDT [facility] BUN/Creatinine Ratio 20.0 7.0 - 25.0 04/09/2025 5:33 AM EDT [facility] Anion Gap 9.0 5.0 - 15.0 mmol/L 04/09/2025 5:33 AM EDT [facility] eGFR 80.5 >60.0 mL/min/1.7 3 04/09/2025 5:33 AM EDT [facility] Blood Venipuncture / Unknown 04/09/2025 4:18 AM EDT 04/09/2025 4:29 AM EDT [facility] - 04/09/2025 5:33 AM [...] MD LAB BLOOD ORDERABLES Fi nal Result [facility]
[address] [place] [address], * Wound Culture - Swab, Leg, Right (04/08/2025 3:40 PM EDT) Wound Culture No growth at 3 days ALIZA 04/11/2025 10:40 AM EDT [facility] Gram Stain Few (2+) WBCs seen 04/11/2025 10:40 AM EDT [facility] Gram Stain No organisms seen 04/11/2025 10:40 AM EDT [facility] Swab Structure of right lower limb / Unknown 04/08/2025 3:40 PM EDT 04/08/2025 8:05 PM EDT us Sushil Dean Jr., MD MICROBIOLOGY - GENERAL ORDERABLES Final Result Performing Organization Address City/[facility]/ZIP Co de Phone Number [facility]
[address] [place] [address], [facility]
[address] [place] [address], * Anaerobic Culture - Swab, Leg, Right (04/08/2025 3:40 PM EDT) Anaerobic Culture No anaerobes isolated at 5 days ALIZA 04/13/2025 7:24 AM EDT [facility] Swab Structure of right lower limb / Unknown 04/08/2025 3:40 PM EDT 04/08/2025 8:05 PM EDT us Sushil Dean Jr., MD MICROBIOLOGY - GENERAL ORDERABLES Final Result Performing Organization Address City/[facility]/ZIP Co de Phone Number [facility]
[address] [place] [address], * Scan Slide (04/08/2025 8:41 AM EDT) RBC Morphology Normal Normal 04/08/2025 11:02 AM EDT [facility] WBC Morphology Normal Normal 04/08/2025 11:02 AM EDT [facility] Platelet Estimate Adequate Normal 04/08/2025 11:02 AM EDT [facility] Clumped Platelets Present None Seen 04/08/2025 11:02 AM EDT [facility] Blood Venipuncture / Unknown 04/08/2025 8:41 AM EDT 04/08/2025 9:10 AM EDT Una Minda PharmD LAB BLOOD ORDERABLES Final R esult [facility]
[address] [place] [address], * (ABNORMAL) CBC Auto Differential (04/08/2025 8:41 AM EDT) WBC 10.07 3.40 - 10.80 10*3/mm3 04/08/2025 11:02 AM EDT [facility] RBC 5.01 4.14 - 5.80 10*6/mm3 04/08/2025 11:02 AM EDT [facility] Hemoglobin 14.0 13.0 - 17.7 g/dL 04/08/2025 11:02 AM EDT [facility] Hematocrit 42.7 37.5 - 51.0 % 04/08/2025 11:02 AM EDT [facility] MCV 85.2 79.0 - 97.0 fL 04/08/2025 11:02 AM EDT [facility] MCH 27.9 26.6 - 33.0 pg 04/08/2025 11:02 AM EDT [facility] MCHC 32.8 31.5 - 35.7 g/dL 04/08/2025 11:02 AM EDT [facility] RDW 12.6 12.3 - 15.4 % 04/08/2025 11:02 AM EDT [facility] RDW-SD 38.9 37.0 - [...] 1.70 - 7.00 10*3/mm3 04/08/2025 11:02 AM [facility] Lymphocytes, Absolute 0.94 0.70 - 3.10 10*3/mm3 04/08/2025 11:02 AM [facility] Monocytes, Absolute 0.46 0.10 - 0.90 10*3/mm3 04/08/2025 11:02 AM [facility] Eosinophils, Absolute 0.03 0.00 - 0.40 10*3/mm3 04/08/2025 11:02 AM [facility] Basophils, Absolute 0.02 0.00 - 0.20 10*3/mm3 04/08/2025 11:02 AM [facility] Immature Grans, Absolute 0.05 0.00 - 0.05 10*3/mm3 04/08/2025 11:02 AM EDT [facility] nRBC 0.0 0.0 - 0.2 /100 WBC 04/08/2025 11:02 AM EDT [facility] Blood Venipuncture / Unknown 04/08/2025 8:41 AM EDT 04/08/2025 9:10 AM EDT Una Perla PharmD LAB BLOOD ORDERABLES Final R esult [facility]
[address] [place] [address], * (ABNORMAL) Basic Metabolic Panel (04/08/2025 8:41 AM EDT) Glucose 125(H) 65 - 99 mg/dL 04/08/2025 9:51 AM EDT [facility] BUN 13.2 6.0 - 20.0 mg/dL 04/08/2025 9:51 AM EDT [facility] Creatinine 0.69(L) 0.76 - 1.27 mg/dL 04/08/2025 9:51 AM EDT [facility] Sodium 136 136 - 145 mmol/L 04/08/2025 9:51 AM EDT [facility] Potassium 4.6 3.5 - 5.2 mmol/L 04/08/2025 9:51 AM EDT [facility] Chloride 102 98 - 107 mmol/L 04/08/2025 9:51 AM EDT [facility] CO2 23.5 22.0 - 29.0 mmol/L 04/08/2025 9:51 AM EDT [facility] Calcium 8.4(L) 8.6 - 10.5 mg/dL 04/08/2025 9:51 AM EDT [facility] BUN/Creatinine Ratio 19.1 7.0 - 25.0 04/08/2025 9:51 AM EDT [facility] Anion Gap 10.5 5.0 - 15.0 mmol/L 04/08/2025 9:51 AM EDT [facility] eGFR 117.0 >60.0 mL/min/1.7 3 04/08/2025 9:51 AM EDT [facility] Blood Venipuncture / Unknown 04/08/2025 8:41 AM EDT 04/08/2025 9:09 AM EDT Narrative [facility] - 04/08/2025 9:51 AM [...] ORDERABLES Fi nal Result Performing Organization Address City/[facility]/ZIP Co de Phone Number [facility]
[address] [place] [address], * Heparin Anti-Xa (04/08/2025 8:41 AM EDT) Heparin Anti-Xa (UFH) 0.33 0.30 - 0.70 IU/ml 04/08/2025 9:40 AM EDT [facility] Blood Venipuncture / Unknown 04/08/2025 8:41 AM EDT 04/08/2025 9:10 AM EDT Sushil Dean Jr., MD LAB BLOOD ORDERABLES Fi nal Result Performing Organization Address City/[facility]/ZIP Co de Phone Number [facility]
[address] [place] [address], * FL C Arm During Surgery (04/07/2025 9:32 PM EDT) Narrative SYSTEMGENERATED, DOCUMENTATION - 04/07/2025 9:38 PM EDT This procedure was auto-finalized with no dictation required. us Sushil Dean Jr., MD IMG FLUOROSCOPY ORDERAB LES Final Result * Wound Culture - Swab, Leg, Right (04/07/2025 9:14 PM EDT) Wound Culture No growth at 3 days ALIZA 04/11/2025 10:40 AM EDT [facility] Gram Stain Occasional WBCs seen 04/11/2025 10:40 AM EDT [facility] Gram Stain No organisms seen 04/11/2025 10:40 AM EDT [facility] Swab Structure of right lower limb / Unknown Collection / Unknown 04/07/2025 9:14 PM EDT 04/08/2025 4:36 AM EDT us Sushil Dean Jr., MD MICROBIOLOGY - GENERAL ORDERABLES Final Result Performing Organization Address City/[facility]/ZIP Co de Phone Number [facility]
[address] [place] [address], [place] [phone] [facility]
[address] [place] [address], [place] [phone] * Anaerobic Culture - Swab, Leg, Right (04/07/2025 9:14 PM EDT) Anaerobic Culture No anaerobes isolated at 5 days ALIZA 04/13/2025 7:21 AM EDT [facility] Swab Structure of right lower limb / Unknown Collection / Unknown 04/07/2025 9:14 PM EDT 04/08/2025 4:36 AM EDT us Sushil Dean Jr., MD MICROBIOLOGY - GENERAL ORDERABLES Final Result [facility]
[address] [place] [address], * Anaerobic Culture - Tissue, Leg (04/07/2025 9:13 PM EDT) Anaerobic Culture No anaerobes isolated at 5 days ALIZA 04/13/2025 7:21 AM EDT [facility] Tissue Lower limb structure / Unknown Collection / Unknown 04/07/2025 9:13 PM EDT 04/08/2025 4:54 AM EDT Jason Álvarez DO MICROBIOLOGY - GENERAL ORDERABLE S Final Result Performing Organization Address [facility]/State/ZIP Co de Phone Number [facility]
[address] [place] [address], * Tissue / Bone Culture - Tissue, Leg, Right (04/07/2025 9:13 PM EDT) Tissue Culture No growth at 3 days ALIZA 04/11/2025 10:36 AM EDT [facility] Gram Stain Rare (1+) WBCs seen 04/11/2025 10:36 AM EDT [facility] Gram Stain No organisms seen 04/11/2025 10:36 AM EDT [facility] Tissue Structure of right lower limb / Unknown 04/07/2025 9:13 PM EDT 04/08/2025 4:54 AM EDT Sushil Dean Jr., MD MICROBIOLOGY - GENERAL ORDERABLES Final Result [facility]
[address] [place] [address], [facility]
[address] [place] [address], [place] [phone] * (ABNORMAL) Wound Culture - Swab, Leg, Right (04/07/2025 9:07 PM EDT) Wound Culture Light growth (2+) Staphylococcus aureus, MRSA(A) ALIZA 04/10/2025 10:38 AM EDT [facility] Comment: Methicillin resistant Staphylococcus aureus, Patient may be an isolation risk. Gram Stain Few (2+) WBCs seen 04/10/2025 10:38 AM EDT [facility] Gram Stain No organisms seen 10:38 AM EDT [facility] Swab Structure of right [...] MD MICROBIOLOGY - GENERAL ORDERABLES Final Result [facility]
[address] [place] [address], [place] [phone] [facility]
[address] [place] [address], [place] [phone] * Anaerobic Culture - Swab, Leg, Right (04/07/2025 9:07 PM EDT) Anaerobic Culture No anaerobes isolated at 5 days ALIZA 04/13/2025 7:21 AM EDT [facility] Swab Structure of right lower limb / Unknown Collection / Unknown 04/07/2025 9:07 PM EDT 04/08/2025 4:36 AM EDT us Sushil Dean Jr., MD MICROBIOLOGY - GENERAL ORDERABLES Final Result [facility]
[address] [place] [address], * Heparin Anti-Xa (04/07/2025 9:10 AM EDT) Pathologist [facility] [place] Heparin Anti-Xa (UFH) 0.30 0.30 - 0.70 IU/ml 04/07/2025 10:12 AM EDT [facility] Blood Venipuncture / Unknown 04/07/2025 9:10 AM EDT 04/07/2025 9:38 AM EDT Una Perla PharmD LAB BLOOD ORDERABLES Final R esult Performing Organization Address City/[facility]/ZIP Co de Phone Number [facility]
[address] [place] [address], * (ABNORMAL) CBC Auto Differential (04/07/2025 9:10 AM EDT) Pathologist [facility] [place] WBC 8.63 3.40 - 10.80 10*3/mm3 04/07/2025 9:50 AM EDT [facility] RBC 5.23 4.14 - 5.80 10*6/mm3 04/07/2025 9:50 AM EDT [facility] Hemoglobin 14.7 13.0 - 17.7 g/dL 04/07/2025 9:50 AM EDT [facility] Hematocrit 44.8 37.5 - 51.0 % 04/07/2025 9:50 AM EDT [facility] MCV 85.7 79.0 - 97.0 fL 04/07/2025 9:50 AM EDT [facility] MCH 28.1 26.6 - 33.0 pg 04/07/2025 9:50 AM EDT [facility] MCHC 32.8 31.5 - 35.7 g/dL 04/07/2025 9:50 AM EDT [facility] RDW 12.8 12.3 - 15.4 % 04/07/2025 9:50 AM [facility] RDW-SD 39.9 37.0 - 54.0 fl 04/07/2025 9:50 AM [facility] MPV 10.8 6.0 - 12.0 fL 04/07/2025 9:50 AM [facility] Platelets 149 140 - 450 10*3/mm3 04/07/2025 9:50 AM [facility] Neutrophil % 66.7 42.7 - 76.0 % 04/07/2025 9:50 AM [facility] Lymphocyte % 20.5 19.6 - 45.3 % 04/07/2025 9:50 AM [facility] Monocyte % 9.8 5.0 - 12.0 % 04/07/2025 9:50 AM [facility] Eosinophil % 2.1 0.3 - 6.2 % 04/07/2025 9:50 AM [facility] Basophil % 0.3 0.0 - 1.5 % 04/07/2025 9:50 AM [facility] Immature Grans % 0.6(H) 0.0 - 0.5 % 04/07/2025 9:50 AM [facility] Neutrophils, Absolute 5.75 1.70 - 7.00 10*3/mm3 04/07/2025 9:50 AM [facility] Lymphocytes, Absolute 1.77 0.70 - 3.10 10*3/mm3 04/07/2025 9:50 AM [facility] Monocytes, Absolute 0.85 0.10 - 0.90 10*3/mm3 04/07/2025 9:50 AM [facility] Eosinophils, Absolute 0.18 0.00 - 0.40 10*3/mm3 04/07/2025 9:50 AM [facility] Basophils, Absolute 0.03 0.00 - 0.20 10*3/mm3 04/07/2025 9:50 AM [facility] Immature Grans, Absolute 0.05 0.00 - 0.05 10*3/mm3 04/07/2025 9:50 AM EDT [facility] nRBC 0.0 0.0 - 0.2 /100 WBC 04/07/2025 9:50 AM EDT [facility] Blood Venipuncture / Unknown 04/07/2025 9:10 AM EDT 04/07/2025 9:38 AM EDT us Jason Álvarez DO LAB BLOOD ORDERABLES Final Resul t [facility]
[address] [place] [address], * (ABNORMAL) Basic Metabolic Panel (04/07/2025 9:10 AM EDT) Glucose 112(H) 65 - 99 mg/dL 04/07/2025 10:19 AM EDT [facility] BUN 13.1 6.0 - 20.0 mg/dL 04/07/2025 10:19 AM EDT [facility] Creatinine 0.77 0.76 - 1.27 mg/dL 04/07/2025 10:19 AM EDT [facility] Sodium 139 136 - 145 mmol/L 04/07/2025 10:19 AM EDT [facility] Potassium 4.2 3.5 - 5.2 mmol/L 04/07/2025 10:19 AM EDT [facility] Comment:Specimen hemolyzed. Result may be falsely elevated. Chloride 105 98 - 107 mmol/L 04/07/2025 10:19 AM EDT [facility] CO2 24.8 22.0 - 29.0 mmol/L 04/07/2025 10:19 AM EDT [facility] Calcium 8.6 8.6 - 10.5 mg/dL 04/07/2025 10:19 AM EDT [facility] BUN/Creatinine Ratio 17.0 7.0 - 25.0 04/07/2025 10:19 AM EDT [facility] Anion Gap 9.2 5.0 - 15.0 mmol/L 04/07/2025 10:19 AM EDT [facility] eGFR 113.2 >60.0 mL/min/1.7 3 04/07/2025 10:19 AM EDT [facility] Blood Venipuncture / Unknown 04/07/2025 9:10 AM EDT 04/07/2025 9:38 AM EDT Narrative [facility] - 04/07/2025 10:19 AM [...] DO LAB BLOOD ORDERABLES Final Resul t [facility]
[address] [place] [address], * MRI Tibia Fibula Right With & [...] [place] 04/07/2025 9:58 AM EDT Workstation ID: [id number] Narrative 04/07/2025 9:58 AM EDT MRI TIBIA [...] [place] 04/07/2025 9:58 AM EDT Workstation ID: [id number] Sushil Dean Jr., MD IMG MRI ORDERABLES Mary Beth l Result * Heparin Anti-Xa (04/07/2025 1:42 AM EDT) [facility] Heparin Anti-Xa (UFH) 0.38 0.30 - 0.70 IU/ml 04/07/2025 2:14 AM EDT [facility] Blood Venipuncture / Unknown 04/07/2025 1:42 AM EDT 04/07/2025 1:54 AM EDT Chelsie Turpin [facility] LAB BLOOD ORDERABLES Final R esult [facility]
[address] [place] [address], * Heparin Anti-Xa (04/06/2025 7:16 PM EDT) [facility] Heparin Anti-Xa (UFH) 0.33 0.30 - 0.70 IU/ml 04/06/2025 7:50 PM EDT [facility] Blood Venipuncture / Unknown 04/06/2025 7:16 PM EDT 04/06/2025 7:35 PM EDT Cherri Beatty [facility] LAB BLOOD ORDERABLES Final Res ult Performing Organization Address [facility] Co de Phone Number [facility]
[address] [place] [address], * Potassium (04/06/2025 7:16 PM EDT) [facility] Potassium 4.0 3.5 - 5.2 mmol/L 04/06/2025 7:53 PM EDT [facility] Blood Venipuncture / Unknown 04/06/2025 7:16 PM EDT 04/06/2025 7:35 PM EDT Jason Álvarez DO LAB BLOOD ORDERABLES Final Resul t Performing Organization Address [facility] de Phone Number [facility]
[address] [place] [address], * (ABNORMAL) Heparin Anti-Xa (04/06/2025 12:36 PM EDT) [facility] Heparin Anti-Xa (UFH) 0.24(L) 0.30 - 0.70 IU/ml 04/06/2025 1:23 PM EDT [facility] Blood Venipuncture / Unknown 04/06/2025 12:36 PM EDT 04/06/2025 1:07 PM EDT Una Perla PharmD LAB BLOOD ORDERABLES Final R esult Performing Organization Address [facility] Co de Phone Number [facility]
[address] [place] [address], * (ABNORMAL) Heparin Anti-Xa (04/06/2025 3:42 AM EDT) [facility] Heparin Anti-Xa (UFH) 0.25(L) 0.30 - 0.70 IU/ml 04/06/2025 5:30 AM EDT [facility] Blood Venipuncture / Unknown 04/06/2025 3:42 AM EDT 04/06/2025 4:59 AM EDT Chelsie Dyana [facility] LAB BLOOD ORDERABLES Final R esult [facility]
[address] [place] [address], * (ABNORMAL) Basic Metabolic Panel (04/06/2025 3:42 AM EDT) [facility] Glucose 94 65 - 99 mg/dL 04/06/2025 5:59 AM EDT [facility] BUN 12.8 6.0 - 20.0 mg/dL 04/06/2025 5:59 AM EDT [facility] Creatinine 0.80 0.76 - 1.27 mg/dL 04/06/2025 5:59 AM EDT [facility] Sodium 138 136 - 145 mmol/L 04/06/2025 5:59 AM EDT [facility] Potassium 3.6 3.5 - 5.2 mmol/L 04/06/2025 5:59 AM EDT [facility] Chloride 103 98 - 107 mmol/L 04/06/2025 5:59 AM EDT [facility] CO2 24.2 22.0 - 29.0 mmol/L 04/06/2025 5:59 AM EDT [facility] Calcium 8.0(L) 8.6 - 10.5 mg/dL 04/06/2025 5:59 AM EDT [facility] BUN/Creatinine Ratio 16.0 7.0 - 25.0 04/06/2025 5:59 AM EDT [facility] Anion Gap 10.8 5.0 - 15.0 mmol/L 04/06/2025 5:59 AM EDT [facility] eGFR 111.9 >60.0 mL/min/1.7 3 04/06/2025 5:59 AM EDT [facility] Blood Venipuncture / Unknown 04/06/2025 3:42 AM EDT 04/06/2025 5:20 AM EDT [facility] - 04/06/2025 5:59 AM [...] DO LAB BLOOD ORDERABLES Final Resul t [facility]
[address] [place] [address], * (ABNORMAL) CBC Auto Differential (04/06/2025 3:41 AM EDT) WBC 10.86(H) 3.40 - 10.80 10*3/mm3 04/06/2025 5:04 AM EDT [facility] RBC 5.08 4.14 - 5.80 10*6/mm3 04/06/2025 5:04 AM EDT [facility] Hemoglobin 13.9 13.0 - 17.7 g/dL 04/06/2025 5:04 AM EDT [facility] Hematocrit 43.7 37.5 - 51.0 % 04/06/2025 5:04 AM EDT [facility] MCV 86.0 79.0 - 97.0 fL 04/06/2025 5:[facility] MCH 27.4 26.6 - 33.0 pg 04/06/2025 5:04 AM [facility] MCHC 31.8 31.5 - 35.7 g/dL 04/06/2025 5:04 AM [facility] RDW 12.8 12.3 - 15.4 % 04/06/2025 5:04 AM [facility] RDW-SD 40.0 37.0 - 54.0 fl 04/06/2025 5:04 AM [facility] MPV 11.7 6.0 - 12.0 fL 04/06/2025 5:04 AM [facility] Platelets 115(L) 140 - 450 10*3/mm3 04/06/2025 5:04 AM [facility] Neutrophil % 65.3 42.7 - 76.0 % 04/06/2025 5:04 AM [facility] Lymphocyte % 20.5 19.6 - 45.3 % 04/06/2025 5:04 AM [facility] Monocyte % 11.8 5.0 - 12.0 % 04/06/2025 5:04 AM [facility] Eosinophil % 1.8 0.3 - 6.2 % 04/06/2025 5:04 AM [facility] Basophil % 0.3 0.0 - 1.5 % 04/06/2025 5:04 AM [facility] Immature Grans % 0.3 0.0 - 0.5 % 04/06/2025 5:04 AM [facility] Neutrophils, Absolute 7.09(H) 1.70 - 7.00 10*3/mm3 04/06/2025 5:04 AM [facility] Lymphocytes, Absolute 2.23 0.70 - 3.10 10*3/mm3 04/06/2025 5:04 AM [facility] Monocytes, Absolute 1.28(H) 0.10 - 0.90 10*3/mm3 04/06/2025 5:04 AM EDT [facility] Eosinophils, Absolute 0.20 0.00 - 0.40 10*3/mm3 04/06/2025 5:04 AM EDT [facility] Basophils, Absolute 0.03 0.00 - 0.20 10*3/mm3 04/06/2025 5:04 AM EDT [facility] Immature Grans, Absolute 0.03 0.00 - 0.05 10*3/mm3 04/06/2025 5:04 AM EDT [facility] nRBC 0.0 0.0 - 0.2 /100 WBC 04/06/2025 5:04 AM EDT [facility] Blood Venipuncture / Unknown 04/06/2025 3:41 AM EDT 04/06/2025 4:58 AM EDT Jason Álvarez DO LAB BLOOD ORDERABLES Final Resul t Performing Organization Address City/[facility] Co de Phone Number [facility]
[address] [place] [address], [place] [phone] * Heparin Anti-Xa (04/05/2025 8:43 PM EDT) Pathologist [facility] Heparin Anti-Xa (UFH) 0.38 0.30 - 0.70 IU/ml 04/05/2025 9:09 PM EDT [facility] Blood Venipuncture / Unknown 04/05/2025 8:43 PM EDT 04/05/2025 8:55 PM EDT us Chreri Beatty [facility] LAB BLOOD ORDERABLES Final Res ult Performing Organization Address City/[facility] Co de Phone Number [facility]
[address] [place] [address], [place] [phone] * CK (04/05/2025 12:15 PM EDT) Creatine Kinase 140 20 - 200 U/L 04/05/2025 1:31 PM EDT [facility] Blood Venipuncture / Unknown 04/05/2025 12:15 PM EDT 04/05/2025 1:03 PM EDT Carlton Mead MD LAB BLOOD ORDERABLES Final R esult Performing Organization Address City/[facility]/ZIP Co de Phone Number [facility]
[address] [place] [address], * (ABNORMAL) Heparin Anti-Xa (04/05/2025 12:15 PM EDT) [facility] Heparin Anti-Xa (UFH) 0.17(L) 0.30 - 0.70 IU/ml 04/05/2025 1:21 PM EDT [facility] Blood Venipuncture / Unknown 04/05/2025 12:15 PM EDT 04/05/2025 1:04 PM EDT Una Perla PharmD LAB BLOOD ORDERABLES Final R esult Performing Organization Address City/[facility] Co de Phone Number [facility]
[address] [place] [address], * (ABNORMAL) aPTT (04/05/2025 3:54 AM EDT) [facility] PTT 35.3(L) 60.0 - 90.0 seconds 04/05/2025 4:31 AM EDT [facility] Blood Venipuncture / Unknown 04/05/2025 3:54 AM EDT 04/05/2025 4:15 AM EDT Narrative [facility] - 04/05/2025 4:31 AM EDT PTT = The equivalent PTT values for the therapeutic range of heparin levels at 0.3 to 0.5 U/ml are 60 to 70 seconds. [employer] LAB BLOOD ORDERABLES Final R esult [facility]
[address] [place] [address], * Heparin Anti-Xa (04/05/2025 3:54 AM EDT) Pathologist [facility] Heparin Anti-Xa (UFH) 0.30 0.30 - 0.70 IU/ml 04/05/2025 4:32 AM EDT [facility] Blood Venipuncture / Unknown 04/05/2025 3:54 AM EDT 04/05/2025 4:15 AM EDT [employer] LAB BLOOD ORDERABLES Final R esult Performing Organization Address City/[facility]/ZIP Co de Phone Number [facility]
[address] [place] [address], * (ABNORMAL) CBC Auto Differential (04/05/2025 3:54 AM EDT) [facility] WBC 11.18(H) 3.40 - 10.80 10*3/mm3 04/05/2025 4:20 AM EDT [facility] RBC 5.00 4.14 - 5.80 10*6/mm3 04/05/2025 4:20 AM EDT [facility] Hemoglobin 13.9 13.0 - 17.7 g/dL 04/05/2025 4:20 AM EDT [facility] Hematocrit 42.4 37.5 - 51.0 % 04/05/2025 4:20 AM EDT [facility] MCV 84.8 79.0 - 97.0 fL 04/05/2025 4:20 AM EDT [facility] MCH 27.8 26.6 - 33.0 pg 04/05/2025 4:20 AM EDT [facility] MCHC 32.8 31.5 - [...] 42.7 - 76.0 % 04/05/2025 4:20 AM [facility] Lymphocyte % 14.0(L) 19.6 - 45.3 % 04/05/2025 4:20 AM [facility] Monocyte % 11.0 5.0 - 12.0 % 04/05/2025 4:20 AM [facility] Eosinophil % 0.8 0.3 - 6.2 % 04/05/2025 4:20 AM [facility] Basophil % 0.3 0.0 - 1.5 % 04/05/2025 4:20 AM [facility] Immature Grans % 0.4 0.0 - 0.5 % 04/05/2025 4:20 AM [facility] Neutrophils, Absolute 8.23(H) 1.70 - 7.00 10*3/mm3 04/05/2025 4:20 AM [facility] Lymphocytes, Absolute 1.56 0.70 - 3.10 10*3/mm3 04/05/2025 4:20 AM [facility] Monocytes, Absolute 1.23(H) 0.10 - 0.90 10*3/mm3 04/05/2025 4:20 AM [facility] Eosinophils, Absolute 0.09 0.00 - 0.40 10*3/mm3 04/05/2025 4:20 AM [facility] Basophils, Absolute 0.03 0.00 - 0.20 10*3/mm3 04/05/2025 4:20 AM EDT [facility] Immature Grans, Absolute 0.04 0.00 - 0.05 10*3/mm3 04/05/2025 4:20 AM EDT [facility] nRBC 0.0 0.0 - 0.2 /100 WBC 04/05/2025 4:20 AM EDT [facility] Blood Venipuncture / Unknown 04/05/2025 3:54 AM EDT 04/05/2025 4:16 AM EDT Una Perla PharmD LAB BLOOD ORDERABLES Final R esult [facility]
[address] [place] [address], * (ABNORMAL) Basic Metabolic Panel (04/05/2025 3:54 AM EDT) Glucose 152(H) 65 - 99 mg/dL 04/05/2025 4:40 AM EDT [facility] BUN 17.3 6.0 - 20.0 mg/dL 04/05/2025 4:40 AM EDT [facility] Creatinine 0.92 0.76 - 1.27 mg/dL 04/05/2025 4:40 AM EDT [facility] Sodium 136 136 - 145 mmol/L 04/05/2025 4:40 AM EDT [facility] Potassium 3.9 3.5 - 5.2 mmol/L 04/05/2025 4:40 AM EDT [facility] Chloride 103 98 - 107 mmol/L 04/05/2025 4:40 AM EDT [facility] CO2 24.0 22.0 - 29.0 mmol/L 04/05/2025 4:40 AM EDT [facility] Calcium 7.8(L) 8.6 - 10.5 mg/dL 04/05/2025 4:40 AM EDT [facility] BUN/Creatinine Ratio 18.8 7.0 - 25.0 04/05/2025 4:40 AM EDT [facility] Anion Gap 9.0 5.0 - 15.0 mmol/L 04/05/2025 4:40 AM EDT [facility] eGFR 105.2 >60.0 mL/min/1.7 3 04/05/2025 4:40 AM EDT [facility] Blood Venipuncture / Unknown 04/05/2025 3:54 AM EDT 04/05/2025 4:15 AM EDT [facility] - 04/05/2025 4:40 AM [...] MD LAB BLOOD ORDERABLES Final Re sult [facility]
[address] [place] [address], * (ABNORMAL) aPTT (04/05/2025 12:18 AM EDT) PTT 33.6(L) 60.0 - 90.0 seconds 04/05/2025 12:53 AM EDT [facility] Blood Venipuncture / Unknown 04/05/2025 12:18 AM EDT 04/05/2025 12:37 AM EDT [facility] - 04/05/2025 12:53 AM EDT PTT = The equivalent PTT values for the therapeutic range of heparin levels at 0.3 to 0.5 U/ml are 60 to 70 seconds. [employer] LAB BLOOD ORDERABLES Final R esult [facility]
[address] [place] [address], [place] [phone] * (ABNORMAL) Protime-INR (04/05/2025 12:18 AM EDT) Protime 15.9(H) 12.2 - 15.3 Seconds 04/05/2025 12:53 AM EDT [facility] INR 1.19(H) 0.89 - 1.12 04/05/2025 12:53 AM EDT [facility] Blood Venipuncture / Unknown 04/05/2025 12:18 AM EDT 04/05/2025 12:37 AM EDT [employer] LAB BLOOD ORDERABLES Final R esult Performing Organization Address [facility] Co de Phone Number [facility]
[address] [place] [address], [place] [phone] * Heparin Anti-Xa (04/05/2025 12:18 AM EDT) Pathologist [facility] Heparin Anti-Xa (UFH) 0.39 0.30 - 0.70 IU/ml 04/05/2025 12:54 AM EDT [facility] Blood Venipuncture / Unknown 04/05/2025 12:18 AM EDT 04/05/2025 12:37 AM EDT [employer] LAB BLOOD ORDERABLES Final R esult Performing Organization Address City/[facility]/ZIP Co de Phone Number [facility]
[address] [place] [address], [place] [phone] * MRI Tibia Fibula Right With & [...] MD 04/04/2025 11:00 PM EDT Workstation ID: [id number] Narrative 04/04/2025 11:00 PM EDT MRI TIBIA [...] MD 04/04/2025 11:00 PM EDT Workstation ID: [id number] Leonora Shepherd MD IMG MRI ORDERABLES Final Resu lt * POC Creatinine (04/04/2025 2:49 PM EDT) Creatinine 1.10 0.60 - 1.30 mg/dL 04/07/2025 7:14 PM EDT [facility] Comment:Serial Number: [id number] 7Operator: [id number] Venous Blood 04/04/2025 2:49 PM EDT 04/07/2025 7:14 PM EDT Jason Álvarez DO POINT OF CARE TEST ORDERABLES Fi nal Result [facility]
[address] [place] [address], [place] [phone] * (ABNORMAL) CBC Auto Differential (04/04/2025 2:47 PM EDT) [facility] Signature WBC 12.72(H) 3.40 - 10.80 10*3/mm3 04/04/2025 2:56 PM EDT [facility] RBC 5.64 4.14 - 5.80 10*6/mm3 04/04/2025 2:56 PM EDT [facility] Hemoglobin 15.3 13.0 - 17.7 g/dL 04/04/2025 2:56 PM EDT [facility] Hematocrit 47.9 37.5 - 51.0 % 04/04/2025 2:56 PM EDT [facility] MCV 84.9 79.0 - 97.0 fL 04/04/2025 2:56 PM EDT [facility] MCH 27.1 26.6 - 33.0 pg 04/04/2025 2:56 PM EDT [facility] MCHC 31.9 31.5 - 35.7 g/dL 04/04/2025 2:56 PM EDT [facility] RDW 13.1 12.3 - 15.4 % 04/04/2025 2:56 PM EDT [facility] RDW-SD 40.3 37.0 - 54.0 fl 04/04/2025 2:56 PM EDT [facility] MPV 9.4 6.0 - 12.0 fL 04/04/2025 2:56 PM EDT [facility] Platelets 232 140 - 450 10*3/mm3 04/04/2025 2:56 PM EDT [facility] Neutrophil % 74.9 42.7 - 76.0 % 04/04/2025 2:56 PM EDT [facility] Lymphocyte % 13.1(L) 19.6 - 45.3 % 04/04/2025 2:56 PM EDT [facility] Monocyte % 11.2 5.0 - 12.0 % 04/04/2025 2:56 PM EDT [facility] Eosinophil % 0.4 0.3 - 6.2 % 04/04/2025 2:56 PM EDT [facility] Basophil % 0.2 0.0 - 1.5 % 04/04/2025 2:56 PM EDT [facility] Immature Grans % 0.2 0.0 - 0.5 % 04/04/2025 2:56 PM EDT [facility] Neutrophils, Absolute 9.52(H) 1.70 - 7.00 10*3/mm3 04/04/2025 2:56 PM EDT [facility] Lymphocytes, Absolute 1.66 0.70 - 3.10 10*3/mm3 04/04/2025 2:56 PM EDT [facility] Monocytes, Absolute 1.43(H) 0.10 - 0.90 10*3/mm3 04/04/2025 2:56 PM EDT [facility] Eosinophils, Absolute 0.05 0.00 - 0.40 10*3/mm3 04/04/2025 2:56 PM EDT [facility] Basophils, Absolute 0.03 0.00 - 0.20 10*3/mm3 04/04/2025 2:56 PM EDT [facility] Immature Grans, Absolute 0.03 0.00 - 0.05 10*3/mm3 04/04/2025 2:56 PM EDT [facility] nRBC 0.0 0.0 - 0.2 /100 WBC 04/04/2025 2:56 PM EDT [facility] Blood Venipuncture / Unknown 04/04/2025 2:47 PM EDT 04/04/2025 2:52 PM EDT us Mario Crowley DO LAB BLOOD ORDERABLES Fin al Result [facility]
[address] [place] [address], * (ABNORMAL) C-reactive Protein (04/04/2025 2:47 PM EDT) Pathologist [facility] [place] C-Reactive Protein 8.57(H) 0.00 - 0.50 mg/dL 04/04/2025 3:26 PM EDT [facility] Blood Venipuncture / Unknown 04/04/2025 2:47 PM EDT 04/04/2025 2:52 PM EDT Mario Ortiz Keo LAB BLOOD ORDERABLES Fin al Result [facility]
[address] [place] [address], * (ABNORMAL) Sedimentation Rate (04/04/2025 2:47 PM EDT) [facility] Sed Rate 51(H) 0 - 15 mm/hr 04/04/2025 3:06 PM EDT [facility] Blood Venipuncture / Unknown 04/04/2025 2:47 PM EDT 04/04/2025 2:52 PM EDT Mario Ortiz Keo LAB BLOOD ORDERABLES Fin al Result Performing Organization Address City/[facility]/ZIP Co de Phone Number [facility]
[address] [place] [address], * Comprehensive Metabolic Panel (04/04/2025 2:47 PM EDT) [facility] Glucose 90 65 - 99 mg/dL 04/04/2025 3:26 PM EDT [facility] BUN 18.3 6.0 - 20.0 mg/dL 04/04/2025 3:26 PM EDT [facility] Creatinine 0.94 0.76 - 1.27 mg/dL 04/04/2025 3:26 PM EDT [facility] Sodium 136 136 - 145 mmol/L 04/04/2025 3:26 PM EDT [facility] Potassium 3.8 3.5 - 5.2 mmol/L 04/04/2025 3:26 PM EDT [facility] Chloride 100 98 - 107 mmol/L 04/04/2025 3:26 PM EDT [facility] CO2 25.3 22.0 - 29.0 mmol/L 04/04/2025 3:26 PM EDT [facility] Calcium 8.6 8.6 - 10.5 mg/dL 04/04/2025 3:26 PM EDT [facility] Total Protein 7.3 6.0 - 8.5 g/dL 04/04/2025 3:26 PM EDT [facility] Albumin 4.1 3.5 - 5.2 g/dL 04/04/2025 3:26 PM EDT [facility] ALT (SGPT) 26 1 - 41 U/L 04/04/2025 3:26 PM EDT [facility] AST (SGOT) 25 1 - 40 U/L 04/04/2025 3:26 PM EDT [facility] Alkaline Phosphatase 106 39 - 117 U/L 04/04/2025 3:26 PM T [facility] Total Bilirubin 1.0 0.0 - 1.2 mg/dL 04/04/2025 3:26 PM EDT [facility] Globulin 3.2 gm/dL 04/04/2025 3:26 PM T [facility] Comment:Calculated Result A/G Ratio 1.3 g/dL 04/04/2025 3:26 PM EDT [facility] BUN/Creatinine Ratio 19.5 7.0 - 25.0 04/04/2025 3:26 PM T [facility] Anion Gap 10.7 5.0 - 15.0 mmol/L 04/04/2025 3:26 PM T [facility] eGFR 102.5 >60.0 mL/min/1.7 3 04/04/2025 3:26 PM [facility] Blood Venipuncture / Unknown 04/04/2025 2:47 PM EDT 04/04/2025 2:52 PM EDT Narrative [facility] - 04/04/2025 3:26 PM [...] DO LAB BLOOD ORDERABLES Fin al Result [facility]
[address] [place] [address], documented in this encounter Visit Diagnoses Diagnosis [...] Protocol Open Order & Select [facility] Electrolyte Replacement Protocol Algorithm to View [...] Protocol Open Order & Select [facility] Electrolyte Replacement Protocol Algorithm to View [...] Salazar, KELL)1943 (Given - Provider: Anahy Marcelino, HELMET BINDER)2129 (Canceled Entry - Provider: Anahy Marcelino HELMET BINDER - Comment: previously given) 0837 (Given - [...] medication prescribed for a lower pain scale. ([facility]) If given for pain, use the [...] Alberto Dillon RN) 2030 (Given - Provider: Ablerto Dillon, LU) saccharomyces boulardii (FLORASTOR) capsule 250 [...] Continuous Medication Order 04/09/2025 04/10/2025 04/11/2025 heparin 97165 units/250 mL (100 units/mL) in 0.45 % [...] Protocol Open Order & Select [facility] Electrolyte Replacement Protocol Algorithm to View [...] documented as of this encounter Care Teams Vocational Nurse Lvn Relationship Specialty Start Date End Date Provider, [place] [address] PCP - General 05/09/23 documented as of this encounter
--- OUTSIDE RECORDS SUMMARY | 2025-04-08 14:34 | XMS_ITS | Encounter Summary ---
Author Organization [facility] Address [address] [place] [address] Care Team Providers Care Etcher Aircraft Name Role Phone Provider, No Known Primary Care Provider Unavail able Reason for Visit * Auth/Cert Specialty Diagnoses / Procedures Referred By Bulmaro muniz Referred To Contact Diagnoses Right BKA infection Referral ID Status Reason Start Date Expiration Date Visits Re quested Visits Authorized [id number] 1 1 Encounter Details Date Type Department Care Team (Late st Contact Info) Description 04/08/2025 3:34 PM EDT Anesthesia Event [facility] OR [address] [place] [address] Ulises Hoffman MD [address] [place] [address] Jairo Brooks MD [address] [place] [address] Anesthesia Record Procedure Summary Procedure Name Responsible [...] drink = 0.6 oz pur e alcohol) [facility] Utilities Answer Date Recorded In the past 12 months has [employer], oil, or water [employer] threatened to shut off services in your [...] or training? 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
--- OUTSIDE RECORDS SUMMARY | 2025-05-12 08:21 | XMS_ITS | Clinical Summary ---
Author Organization [facility] Address [address] [place] [address] Phone Care Team Providers Care Fruit Buyer Name Role Phone Unavailable Unavailable Conditions or Problems No information available. Medications No information available. Medications Administered No information available. Allergies, Adverse Reactions, Alerts No information available. Results No information available. Plan of Care No information available. Procedures No information available. Vital Signs No information available. Immunizations No information available. Advance Directives No information available.
--- OUTSIDE RECORDS SUMMARY | 2025-05-12 08:22 | XMS_ITS | Data Portability ---
Author Organization [place] - [facility] [place] [facility] ADMIN Address [address] [place] [id number] Care Team Providers Care Brusher Name Role Phone SYBIL WILLIAM Primary Care Provider [phone] Assessment No assessment recorded. Plan of Treatment Reminders Order Date Submit Date Provider Last Modified By Organization Details Last Modified Time Details Appointments Establish ed Visit 15 min 2024 10:15A Jadyn Torres MD Not available Not available Not available Lab C-reactiv e protein, quantitat nasim, serum or plasma [address] [facility], [address] [facility], [place], [address], 05/02/2024 17:36:31 ESR (erythroc yte sedimenta tion rate), blood [address] [facility], [address] [facility], [place], [address], 05/02/2024 17:36:31 C-reactiv e protein, quantitat nasim, serum or plasma 2023 024 [place] [address] [facility], [address], [address], [place], [address], 11/01/2023 08:08:32 ESR (erythroc yte sedimenta tion rate), blood 2023 024 [place] [address] [facility], [address], [address], [place], [address], 11/01/2023 08:08:32 CBC w/ auto diff 2023 024 [facility], [address], [place], [address], 10/24/2023 16:12:13 CMP, serum or plasma 2023 024 [facility], [address], [place], [address], 10/24/2023 16:42:07 Referral None recorded. Procedures None recorded. Surgeries None recorded. Imaging None recorded. Medication Orders doxycycli ne hyclate 100 mg capsule 2024 025 [facility], [address], [address], 05/05/2025 10:47:50 doxycycli ne hyclate 100 mg capsule [address], [address], [address], 05/05/2025 10:31:23 Patient TargetsNo targets recorded. Patient InstructionsNo instructions recorded. Reason for Referral None Reported. Results Created Date Observation Date Name Description Value Unit Range Abnormal Flag Note LastModifiedBy Organization Detail LastModifiedTime 10/24/1910/24/2023 CBC AUTO W DIFF WBC 6.9 K/uL 4.0-10 .5 Not Available [facility] ([facility]) [address], [place], [address], 10/24/2023 16:12:13 10/24/19 24 10/24/2023 CBC AUTO W DIFF RBC 5.7 M/mm3 4.7-6. 1 Not Available [facility] ([facility]) [address], [place], [address], 10/24/2023 16:12:13 10/24/19 24 10/24/2023 CBC AUTO W DIFF HGB 14.7 gm/dL 13.5-1 8.0 Not Available [facility] ([facility]) [address] , [place], [address], 10/24/2023 16:12:13 10/24/19 24 10/24/2023 CBC AUTO W DIFF HCT 46.0 % 42.0-5 2.0 Not Available [facility] ([facility]) [address] , [place], [address], 10/24/2023 16:12:13 10/24/19 24 10/24/2023 CBC AUTO W DIFF MCV 80.4 fL 78-100 Not Available [facility] ([facility]) [address] , [place], [address], 10/24/2023 16:12:13 10/24/19 24 10/24/2023 CBC AUTO W DIFF MCH 25.7 pg 27-31 low Not Available [facility] ([facility]) [address] , [place], [address], 10/24/2023 16:12:13 10/24/19 24 10/24/2023 CBC AUTO W DIFF MCHC 32.0 g/dL 32-36 Not Available [facility] ([facility]) [address] , [place], [address], 10/24/2023 16:12:13 10/24/19 24 10/24/2023 CBC AUTO W DIFF RDW 14.3 % 11.5-1 4.0 high Not Available [facility] ([facility]) [address] [place], [address], 10/24/2023 16:12:13 10/24/19 24 10/24/2023 CBC AUTO W DIFF platelet count 258 K/uL 150-45 0 Not Available [facility] ([facility]) [address] [facility] [place], [address], 10/24/2023 16:12:13 10/24/19 24 10/24/2023 CBC AUTO W DIFF MPV 9.6 fL 6-9.5 high Not Available [facility] ([facility]) [address], [place], [address], 10/24/2023 16:12:13 10/24/19 24 10/24/2023 CBC AUTO W DIFF neutrophil% 70.1 % 43-65 high Not Available [facility] ([facility]) [address], [place], [address], 10/24/2023 16:12:13 10/24/19 24 10/24/2023 CBC AUTO W DIFF lymphocyte% 18.4 % 20.5-4 5.5 low Not Available [facility] ([facility]) [address], [place], [address], 10/24/2023 16:12:13 10/24/19 24 10/24/2023 CBC AUTO W DIFF monocyte% 8.7 % 5.5-11 .7 Not Available [facility] ([facility]) [address] [facility], [place], [address], 10/24/2023 16:12:13 10/24/19 24 10/24/2023 CBC AUTO W DIFF eosinophil% 2.3 % 0.9-2. 9 Not Available [facility] ([facility]) [address] [place], [address], 10/24/2023 16:12:13 10/24/19 24 10/24/2023 CBC AUTO W DIFF basophil% 0.4 % 0.2-1. 0 Not Available [facility] ([facility]) [address] [place], [address], 10/24/2023 16:12:13 10/24/19 24 10/24/2023 CBC AUTO W DIFF immature granulocytes % 0.1 % 0.0-0. 8 Not Available [facility] ([facility]) [address], [place], [address], 10/24/2023 16:12:13 10/24/19 24 10/24/2023 CBC AUTO W DIFF nucleated red blood cells % 0.0 % Not Available [facility] ([facility]) [address], [place], [address], 10/24/2023 16:12:13 10/24/19 24 10/24/2023 CBC AUTO W DIFF neutrophil# 4.8 K/uL 2.2-4. 8 Not Available [facility] ([facility]) [address] [facility], [place], [address], 10/24/2023 16:12:13 10/24/19 24 10/24/2023 CBC AUTO W DIFF lymphocyte# 1.3 cell/ mcL 1.3-2. 9 Not Available [facility] ([facility]) [address], [place], [address], 10/24/2023 16:12:13 10/24/19 24 10/24/2023 CBC AUTO W DIFF monocyte# 0.6 cell/ mcL 0.3-0. 8 Not Available [facility] ([facility]) [address] [facility], [place], [address], 10/24/2023 16:12:13 10/24/19 24 10/24/2023 CBC AUTO W DIFF eosinophil# 0.2 cell/ mcL 0-0.2 Not Available [facility] ([facility]) [address] [facility], [place], [address], 10/24/2023 16:12:13 10/24/19 24 10/24/2023 CBC AUTO W DIFF basophil# 0.0 cell/ mcL 0.0-1. 0 Not Available [facility] ([facility]) [address] [place], [address], 10/24/2023 16:12:13 10/24/19 24 10/24/2023 CBC AUTO W DIFF immature gramulocytes # 0.01 K/uL Not Available [facility] ([facility]) [address], [place], [address], 10/24/2023 16:12:13 10/24/19 24 10/24/2023 CBC AUTO W DIFF nucleated red blood cells # 0.00 K/uL Not Available [facility] ([facility]) [address] , [place], [address], 10/24/2023 16:12:13 10/24/19 24 10/24/2023 CBC AUTO W DIFF manual differential NO Not Available [facility] ([facility]) [address] , [place], [address], 10/24/2023 16:12:13 10/24/19 24 10/24/2023 COMP METAB OLIC PANEL sodium 139 mmol/ L 136-14 5 Not Available [facility] ([facility]) [address], [place], [address], 10/24/2023 16:42:07 10/24/19 24 10/24/2023 COMP METAB OLIC PANEL potassium 4.0 mmol/ L 3.6-5. 0 Not Available [facility] ([facility]) [address] , [place], [address], 10/24/2023 16:42:07 10/24/19 24 10/24/2023 COMP METAB OLIC PANEL chloride 104 mmol/ L 98-107 Not Available [facility] ([facility]) [address] [place], [address], 10/24/2023 16:42:07 10/24/19 24 10/24/2023 COMP METAB OLIC PANEL carbon dioxide 28.1 mmol/ L 21.0-3 2.0 Not Available [facility] ([facility]) [address], [place], [address], 10/24/2023 16:42:07 10/24/19 24 10/24/2023 COMP METAB OLIC PANEL anion gap 10.9 Not Available [facility] ([facility]) [address], [place], [address], 10/24/2023 16:42:07 10/24/19 24 10/24/2023 COMP METAB OLIC PANEL glucose 99 mg/dL 70-120 Not Available [facility] ([facility]) [address], [place], [address], 10/24/2023 16:42:07 10/24/19 24 10/24/2023 COMP METAB OLIC PANEL BUN 16 mg/dL 7-18 Not Available [facility] ([facility]) [address] , [place], [address], 10/24/2023 16:42:07 10/24/19 24 10/24/2023 COMP METAB OLIC PANEL creatinine 0.9 mg/dL 0.6-1. 3 Not Available [facility] ([facility]) [address] , [place], [address], 10/24/2023 16:42:07 10/24/19 24 10/24/2023 COMP METAB OLIC PANEL glomerular filtration rate >60 mlper min 60- Not Available [facility] ([facility]) [address], [place], [address], 10/24/2023 16:42:07 10/24/19 24 10/24/2023 COMP METAB OLIC PANEL total protein 7.2 g/dL 6.4-8. 2 Not Available [facility] ([facility]) [address] , [place], [address], 10/24/2023 16:42:07 10/24/19 24 10/24/2023 COMP METAB OLIC PANEL albumin 3.6 g/dL 3.4-5. 0 Not Available [facility] ([facility]) [address], [place], [address], 10/24/2023 16:42:07 10/24/19 24 10/24/2023 COMP METAB OLIC PANEL globulin 3.6 Not Available [facility] ([facility]) [address], [place], [address], 10/24/2023 16:42:07 10/24/19 24 10/24/2023 COMP METAB OLIC PANEL alb/glob ratio 1.0 0.7-2 Not Available [facility] ([facility]) [address], [place], [address], 10/24/2023 16:42:07 10/24/19 24 10/24/2023 COMP METAB OLIC PANEL calcium 8.6 mg/dL 8.5-10 .5 Not Available [facility] ([facility]) [address], [place], [address], 10/24/2023 16:42:07 10/24/19 24 10/24/2023 COMP METAB OLIC PANEL bilirubin total 0.50 mg/dL 0.10-1 .00 Not Available [facility] ([facility]) [address], [place], [address], 10/24/2023 16:42:07 10/24/19 24 10/24/2023 COMP METAB OLIC PANEL AST (SGOT) 23 U/L 0-37 Not Available [facility] ([facility]) [address], [place], [address], 10/24/2023 16:42:07 10/24/19 24 10/24/2023 COMP METAB OLIC PANEL ALT (SGPT) 39 U/L 0-65 Not Available [facility] ([facility]) [address] , [place], [address], 10/24/2023 16:42:07 10/24/19 24 10/24/2023 COMP METAB OLIC PANEL alk phosphatase 80 U/L 46-116 Not Available [facility] ([facility]) [address] [facility], [place], [address], 10/24/2023 16:42:07 10/25/19 24 10/26/2023 SEDIM ENTAT ION RATE- WESTE RGREN sedimentatio n rate-westerg los 5 mm/HR 0-15 Not Available [facility] ([facility]) [address] [facility], [place], [address], 11/03/2023 15:11:19 10/25/19 24 10/27/2023 C-CHANA CTIVE PROTE IN, QUANT C-reactive protein, quant 15 mg/L 0-10 above high normal Not Available [facility] ([facility]) [address] [place], [address], 11/03/2023 15:11:21 04/23/20 24 04/23/2024 C-CHANA CTIVE PROTE IN (CRP) C-reactive protein, quant 1.1 mg/dL 0.05-0 .300 high Not Available [facility] ([facility]) [address] [facility], [place], [address], 04/23/2024 10:36:29 04/23/20 24 04/23/2024 SED RATE sed rate auto 4 0-15 Not Available [facility] ([facility]) [address] [facility], [place], [address], 04/23/2024 10:54:51 11/20/19 24 11/20/2023 arti melgar x US lwr RT ext [facility] [address] [place] [address] Phone: Fax: Name: GAYATHRI DENNIS Exam Date: 024 : 1979 Age 43 years Gender : M Access ion: [id number] Physic lou: THAO BRADFORD [facility]ili ty: [facility] Facili ty HSV: Outpat ient Exam: [...] lower extrem ity. Dictat ed By: Jose Luciaon Transc ribed By: Jose Sebastian Transc ribed [...] OSUNA Admitt ing Provid er: SPENCER [email or web address] [facility] [address] [facility], [place], [address], 11/20/2023 12:58:54 11/20/19 24 11/20/2023 CT, angio gram, chest , w/ contr ast [facility] [address] [place] [address] Phone: Fax: Name: GAYATHRI DENNIS Exam Date: : 1979 Age 43 years Gender : M Access ion: [id number] Physic lou: THAO BRADFORD Facili ty: [facility] Facili ty HSV: Outpat ient Exam: CTA [...] you for referr ing GAYATHRI DENNIS to [facility] Hospit [facility]. Legall y authen ticate d by YANELIS Macias IVO 11-19 12:06: 58 CC'ed Logic: Orderi ng Provid er: SPENCER OSUAN Attend ing Provid er: SPENCER OSUNA Referr ing Provid er: SPENCER OSUNA Admitt ing Provid er: SPENCER OSUNA [email or web address] [facility] [address] [place] [address], [address], 11/21/2023 16:18:56 Result Notes Documentation Provider Name and Address Organization Details Recorded Time Ct, Angiogram, Chest, W/ Contrast : [place] [address] Name: MITCHELLWON LANDERS Exam Date: 11/20/2023 : 1980 Age 43 years Gender: M Physician: THAO BARNES Facility: [facility] Facility HSV: Outpatient Exam: CTA CHEST PE [...] Thank you for referring WON DENNIS to [facility]. Legally authenticated by RENALDO DÍAZ 2023-11-20 12:06:58 CC'ed Logic: Ordering Provider: MOLLY OSUNA Attending Provider: MOLLY OSUAN Referring Provider: MOLLY OSUNA Admitting Provider: YVON De Jesus [facility]NT [facility] [place] 11/21/2023 16:18:56 Problems Name Problem SNOMED Code Status Onset Date Resolution Date Notes Provider Name and Address Organization Details Recorded Time Methicillin resistant Staphylococ cus aureus infection 434082070 Active 2023 YVON Palomo LPNT [facility] [place] 10:16:00 High risk medication monitoring indicated 5731737564555 9103 Active 2023 YVON Palomo [facility] [place] [facility] [place] 10:16:36 Problem Notes None recorded. Procedures Surgical History Date Name Laterality Status Provider Name and Address Organization Details Recorded Time 03/26/20 24 Venipuncture cancelled Thao Barnes PA-C [address], [place], [address], [facility] [place] 03/18/2024 14:56:10 10/24/19 24 Venipuncture completed Thao Barnes PA-C [address], [place], [address], [facility] [place] 10/23/2023 10:53:19 07/25/19 24 [facility] [place] 07/25/2023 14:41:20 amputation of lower limb completed [facility] [place] 07/25/2023 13:57:05 Imaging Results None recorded. Procedure Notes None recorded. Medical Equipment None Reported. Allergies Allergen ID Allergen Name Allergen Category Reaction Reaction Severity Criticality Documentation Date Start Date Code Code System Note Provider Name and Address Organization Details Recorded Time 913117 cefdinir medicatio n Not available Not available Not available 06/02/2023 42769 RxNorm Isabel Kay [facility] & [place] 10:06:00 Medications Name Sig Start Date Stop [...] Updated DateTime 4 182.88 cm 43.3 kg/m2 471800. 97 g 98 [degF] 95 /min 96 % 96 % 137/92 mm[Hg] Sarah Hendersonmayank [facility] & [place] 4 14:44:48 Date Recorded Body height Body mass index (BMI) Body weight Body temperature Oxygen saturation Oxygen saturation in Arterial blood by Pulse oximetry Heart rate Systolic And Diastolic Provider Name and Address Organization Details Last Updated DateTime 4 182.88 cm 43.2 kg/m2 884938. 81 g 98.6 [degF] 95 % 95 % 86 /min 134/84 mm[Hg] Amy Aquino [facility] & [place] 4 08:59:12 Date Recorded Body height Body mass index (BMI) Body weight Body temperature Oxygen saturation Oxygen saturation in Arterial blood by Pulse oximetry Heart rate Systolic And Diastolic Provider Name and Address Organization Details Last Updated DateTime 4 182.88 cm 42.9 kg/m2 820570. 19 g 98 [degF] 94 % 94 % 70 /min 140/80 mm[Hg] Kalie Gibbs [facility] & [place] 4 09:24:00 Date Recorded Heart rate Body height Oxygen saturation Oxygen saturation in Arterial blood by Pulse oximetry Body temperature Body mass index (BMI) Body weight Systolic And Diastolic Provider Name and Address Organization Details Last Updated DateTime 5 85 /min 180.34 cm 94 % 94 % 98.8 [degF] 41.7 kg/m2 579546. 12 g 140/96 mm[Hg] Amy Aquino [facility] & [place] 5 11:13:21 Date Recorded Body height Heart rate Oxygen saturation Oxygen saturation in Arterial blood by Pulse oximetry Body mass index (BMI) Body weight Body temperature Systolic And Diastolic Provider Name and Address Organization Details Last Updated DateTime 5 180.34 cm 90 /min 94 % 94 % 41.8 kg/m2 321572. 71 g 97.5 [degF] 120/70 mm[Hg] Amy SANZ [facility] & [place] 5 10:30:54 Social History Question Answer Notes LastModified by Cydan Details LastModified Time Tobacco Smoking Status Never Smoker Isabel Abdullahiey [facility] & [place] 06/02/2023 10:06:28 Do You Have An Advance Directive? [email or web address] Information not available 04/28/2025 Are You Blind Or Do You Have Difficulty Seeing? No [email or web address] Information not available 04/28/2025 What Was The Date Of Your Most Recent Tobacco Screening? 04/20/2025 [email or web address] Information not available 04/28/2025 Are You Passively Exposed To Smoke? No [email or web address] Information not available 04/28/2025 Sex: Unknown Functional Status Question Answer Note LastModified by Cydan Details LastModified Time Do you use any illicit or recreational drugs? No [email or web address] Information not available 07/25/2023 What is your level of alcohol consumption? None [email or web address] Information not available 04/28/2025 Mental Status None recorded. Family History Nothing Reported. Medical History Condition Response Back Problems Y Clotting Disorder Y Hypertension Y Immunizations Vaccine Type Date Status Note Provider Shay moralez and Address Organization Details Recorded Time Td (adult), 2 Lf tetanus toxoid, preservative free, adsorbed 6 completed Sarah jaramillo, [place] - [facility] - [place] [facility] [place] 07/25/2023 13:54:15 Past Encounters Encounter ID Performer Location Encounter Start Date Encounter Closed Date Diagnosis/Indication Diagnosis SNOMED-CT Code Diagnosis ICD10 Code Diagnosis IMO Codes Diagnosis Note [id number] Randy Torres MD [facility] Infect[facility] Disease [address] [place] [address] 06/02/2023 09:54:50 06/02/2023 10:26:43 Osteomyelitis 80276482 M86.9 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 Influenza caused by Influenza A virus 327517364 J09.X2 Resolved.. No further oseltamivi r needed. High risk medication monitoring indicated 6863455255 2978731 Z76.89 Related to the daptomycin . I will check a total CK and continue to follow serial levels of this enzyme to make sure he develops no rhabdomyol ysis. [id number] Randy Torres MD [facility] Disease [address] [place] [address] 06/09/2023 10:23:03 06/09/2023 10:54:12 Osteomyelitis 88525009 M86.9 Occurring in the right BKA stump [...] time. Methicilli n resistant Staphylococcus aureus infection 349436302 A49.02 As above High risk medication monitoring indicated 9915567794 9643625 Z76.89 This is related to the daptomycin . I will continue to monitor his total CK levels closely. [id number] Randy Torres MD [facility] [address] [place] [address] 06/28/2023 10:37:09 06/28/2023 11:22:08 Osteomyelitis 25821693 M86.9 Occurring in the right BKA stump [...] week. Methicilli n resistant Staphylococcus aureus infection 225418326 A49.02 As above [id number] Randy Torres MD [facility] [address] [place] [address] 07/06/2023 09:38:06 07/06/2023 10:00:10 Osteomyelitis 22501544 M86.9 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 Methicilli n resistant Staphylococcus aureus infection 684083261 A49.02 As above Adverse re action to drug 56595472 T50.905A Related to doxycyclin e. This is gastrointe stinal in nature. I will check his liver function testing to make sure he is not developing any hepatotoxi city. I will drop the dose to 100 mg per day. I want him to continue to take it with food. I will re-evaluat e next week. [id number] Randy Torres MD [facility] Disease [address] [place] [address] 07/12/2023 08:53:12 07/12/2023 09:54:35 Osteomyelitis 05280923 M86.9 Occurring in the right BKA stump [...] month. Methicilli n resistant Staphylococcus aureus infection 026363793 A49.02 As above [id number] Thao Barnes PA-C [facility] [address] [place] [address] 07/25/2023 13:39:19 07/26/2023 06:33:52 Deep venous thrombosis 271867625 I82.409 Patient has a history of osteomyeli [...] performed when patient was hospitaliz ed at [facility] on May 26, 2023 with normal antithromb in 3 activity. No evidence of factor 5 Leiden mutation. Discussed with patient will order additional labs for further evaluation acquired hypercoagu lable disorder today. Discussed will likely continue on least the prophylact ic dose of Eliquis lifelong due to separate occurrence s of blood clots. Pulmonary embolism 65957 003 I26.99 Patient has a history of [...] s of blood clots. Anticoagulant therapy 18 9084006 Z79.01 Patient continues on Eliquis 5 mg 1 tab p.o. b.i.d.. He is tolerating without trouble. Discussed will likely continue on least the prophylact ic dose of Eliquis lifelong due to separate occurrence s of blood clots. [id number] Thao Barnes PA-C [facility] [address] [place] [address] 10/24/2023 14:29:27 10/24/2023 15:33:34 Deep venous thrombosis 288344092 I82.409 Patient has a history of osteomyeli [...] performed when patient was hospitaliz ed at [facility] on May 26, 2023 with normal antithromb [...] Will follow up labs today. Pulmonary embolism 39344 003 I26.99 Patient has a history of [...] follow up labs today. Anticoagulant therapy 18 1170946 Z79.01 Patient continues on Eliquis 5 mg 1 tab p.o. b.i.d.. He is tolerating without trouble. Discussed will continue on least the prophylact ic dose of Eliquis lifelong due to separate occurrence s of blood clots. Will follow up venous duplex of lower extremity and chest CTA to make sure no evidence of embolism before reducing Eliquis dose to 2.5 mg b.i.d. [id number] Randy Torres MD [facility] Disease [address] [place] [address] 10/25/2023 08:49:58 10/25/2023 10:57:40 Osteomyelitis 18413557 M86.9 Occurring in the right BKA stump [...] months. Methicilli n resistant Staphylococcus aureus infection 004462570 A49.02 As above High risk medication monitoring indicated 4439234658 7236536 Z76.89 This is related to the chronic suppressiv e doxycyclin e. I reviewed his liver function testing from yesterday. There is no evidence of any hepatotoxi city. I will continue to monitor this at each visit. I also counseled him about the risk of photosensi tivity with doxycyclin e. [id number] Randy Torres MD [facility] Infectiou s Disease -105 [address] [facility] [address] [place] [address] 04/23/2024 09:14:33 04/23/2024 09:34:49 Osteomyelitis 45526915 M86.9 Occurring in the right BKA stump [...] month. Methicilli n resistant Staphylococcus aureus infection 008653228 A49.02 As above [id number] Randy Torres MD [facility] Infecti[facility] s Disease -105 [address] [facility] [address] [place] [address] 04/28/2025 11:00:57 04/28/2025 11:33:23 Osteomyelitis 18522763 M86.9 748812 This patient has a recurrentc hronic osteomyeli [...] week. Methicilli n resistant Staphylococcus aureus infection 521003832 B95.62 6072465 As above [id number] Randy Torres MD [facility] Infect[facility] s Disease -105 [address] [facility] [address] [place] [address] 05/05/2025 10:21:03 05/05/2025 10:37:01 Chronic osteomyelitis of right tibia 7118057093 834483 M86.461 79406913 This is recurrent and involves the right [...] today. Methicilli n resistant Staphylococcus aureus infection [id number] A49.02 072080 This is the pathogen as above. Taking hig h risk medication [id number] 51125 Z79.661 7446229 This is related to the long-term intravenou [...] ID Guarantor Name 01/27/2024 1 [place] [id number] Won Dennis [id number] Won Dennis 05/01/2025 2 MEDICAID-[facility] HEALTH CHOICES - FFS/TRADITIONA L Won Dennis [id number] Won Dennis 05/01/2025 1 [place] Won Dennis [id number] Won Dennis 04/28/2025 1 HUMANA Won Dennis [id number] Won Dennis 04/30/[address] [facility] (MEDICAID REPLACEMENT - HMO) Won Dennis [id number] Won Dennis Notes Date Note Type Note [...] Labs performed when patient was hospitalized at [facility] on May 26, 2023 with normal antithrombin [...] follow up labs today. Thao Barnes PA-C [address], [place], [address], [place] - [facility] - [place] & [place] 10/24/2023 15:43:34 10/25/2023 text/html ROS as noted in the HPI This is a 42-year-old white male following up with ms for right BKA stump osteomyelitis due to [...] well. 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 Since his debridement, he completed 6 weeks of intravenous daptomycin and 1 year of suppressive doxycycline. He is remained infection free. His stump is fully healed. No fever. No other issues. He is tolerating the doxycycline well. Randy Torres MD [address], [place], [address], [facility] & [place] 04/23/2024 09:31:22 04/28/2025 text/html ROS as noted in the HPI This is a 44-year-old white male who is following up with ms for a right stump infection due to [...] daptomycin and is now referred back to ms. He has been on intravenous daptomycin for almost 4 weeks. The swelling in his stump has gone down. There is no persisting redness or pain. No fever. No issues tolerating the daptomycin. Randy Torres MD [address], [place], [address], [facility] & [place] 04/28/2025 11:42:44 05/05/2025 text/html ROS as noted in the HPI This is a 44-year-old white male who is following up with ms for a recurrent osteomyelitis of his right [...] once daily at the infusion center in [facility]. His stump is doing well. All surgical incisions remain healed. There has been no undue pain or swelling. No redness. No drainage. Randy Torres MD [address], [place], [address], [facility] - [facility] - [place] & [place] 05/05/2025 10:41:36
--- OUTSIDE RECORDS SUMMARY | 2025-05-12 08:22 | XMS_ITS | Patient Health Record ---
[facility] [address] [facility] [address] [place] Sykes [id number] Care Team Providers Care Zinc Plate Grainer Name Role Phone Zeeshan Salazar Primary Care [...] W/U Status Risk Notes Problem Essential hypertension (18113107) HTN [Hypertension] (401.9) Active confirmed appears resolved Problem Hypothyroidism (60943256) Hypothyroidism NOS (244.9) Active confirmed Problem Hyperlipidemia (86399264) Hyperlipidemia (272.4) Active confirmed Problem Constipation (34273885) Constipation, unspecified constipation type (K59.00) Active confirmed Problem History of pulmonary embolism on long-term anticoagulation therapy (01765489042537399 ) Hx pulmonary embolism (Z86.711) Active confirmed Problem Long-term current use of anticoagulant (479772602) Current use of terminologist anticoagulation (Z79.01) Active confirmed Problem Adjustment disorder with anxious mood (46438554) Adjustment disorder with anxious mood (F43.22) Active confirmed Problem History of pulmonary embolus (114175698) History of pulmonary embolus (PE) (Z86.711) Active confirmed Problem Methicillin resistant Staphylococcus aureus infection (disorder) (396268775) Infection of wound due to methicillin resistant Staphylococcus aureus (MRSA) (A49.02) Active confirmed Problem Arthritis of knee (984017043) Arthritis of knee (M17.10) Active confirmed Problem Amputated below knee (796521640) Status post below knee amputation of right lower extremity (Z89.511) Active confirmed Problem Gastroesophageal reflux disease (151873169) Gastroesophageal reflux disease, unspecified whether esophagitis present [...]
--- OUTSIDE RECORDS SUMMARY | 2025-05-12 08:22 | XMS_ITS | Continuity of Care Document ---
Author Organization [facility] & [facility] Infectious Disease -105 Address [address] [place] [address] Care Team Providers Care Pony Worker Name Role Phone SYBIL WILLIAM Primary Care [...] Time Methicillin resistant Staphylococ cus aureus infection 090328371 Active 2023 Amy jaramillo [place] Daja [facility] & [place] 4 10:16:00 High risk medication monitoring indicated 4846913114196 9103 Active 2023 Amy jaramillo [place] Daja [facility] & [place] 4 10:16:36 Problem Notes None recorded. Procedures Surgical History Date Name Laterality Status Provider Name and Address Organization Details Recorded Time 03/26/20 24 Venipuncture cancelled Luci Ag PA-C [address] , [place], [address], [facility] & [place] 03/18/2024 14:56:10 10/24/19 24 Venipuncture completed Luci Ag PA-C [address] [facility], [place], [address], [facility] & [place] 10/23/2023 10:53:19 07/25/19 24 [facility] [place] 07/25/2023 14:41:20 [facility] lower [facility] [place] 07/25/2023 13:57:05 Imaging Results None recorded. Procedure Notes None recorded. Medical Equipment None Reported. Allergies Allergen ID Allergen Name Allergen Category Reaction Reaction Severity Criticality Documentation Date Start Date Code Code System Note Provider Name and Address Organization Details Recorded Time 115415 cefdinir medicatio n Not available Not available Not available 06/02/2023 44471 RxNorm Isabel Kay [facility] & [place] 10:06:00 Medications Name Sig Start Date Stop [...] active Not Available Not Available Not Available [facility] 10 billion cell-200 mg [...] % 94 % 98.8 [degF] 41.7 kg/m2 865514. 12 g 140/96 mm[Hg] Amy Aquino [facility] & [place] 11:13:21 Social History Question Answer Notes LastModified by Gold Lasso ion Details LastModified Time Tobacco Smoking Status Never Smoker Isabel Rahul [facility] 06/02/2023 10:06:28 Do You Have An Advance Directive? No [email or web address] Information not available 04/28/2025 Are You Blind Or Do You Have Difficulty Seeing? No [email or web address] Information not available 04/28/2025 What Was The Date Of Your Most Recent Tobacco Screening? 04/20/2025 [email or web address] Information not available 04/28/2025 Are You Passively Exposed To Smoke? No [email or web address] Information not available 04/28/2025 Sex: Unknown Functional Status Question Answer Note LastModified by [email or web address] Details LastModified Time Do you use any illicit or recreational drugs? No [email or web address] Information not available 07/25/2023 What is your level of alcohol consumption? None [email or web address] Information not available 04/28/2025 Mental Status None recorded. Family History Nothing Reported. Medical History Condition Response Clotting Disorder Y Back Problems Y Hypertension Y Immunizations Vaccine Type Date Status Note Provider Nam e and Address Organization Details Recorded Time Td (adult), 2 Lf tetanus toxoid, preservative free, adsorbed 6 completed Sarah Vidal [facility], [place] - [facility] & [place] 07/25/2023 13:54:15 Past Encounters Encounter ID Performer Location Encounter Start Date Encounter Closed Date Diagnosis/Indication Diagnosis SNOMED-CT Code Diagnosis ICD10 Code Diagnosis IMO Codes Diagnosis Note [id number] Randy Torres MD [facility] Infectiou s Disease -[address] [place] [address] 04/28/2025 11:00:57 04/28/2025 11:33:23 Osteomyelitis 89247536 M86.9 967427 This patient has a recurrentc hronic osteomyeli [...] week. Methicilli n resistant Staphylococcus aureus infection 656492919 B95.62 2554324 As above Health Concerns Section Related Observation LastModified by Organization Detai ls LastModified Time None Recorded Concern Status LastModified by Organization Details LastModified Time None Recorded Payers Encounter Date Sequence Insurance Name Policy Number Policy Brantley Covered Member ID Brantley Member ID Guarantor Name 04/28/2025 2 [place] HEALTH CHOICES - FFS/TRADITIONA L Won Dennis [id number] Won Dennis 04/28/2025 3 [employer] [place] (MEDICAID REPLACEMENT - HMO) Won Dennis [id number] Won Sonny Notes Date Note Type Note [...] issues tolerating the daptomycin. Randy Torres MD [address] [facility], [place], [address], [facility] - [facility] - [place] & [place] 04/28/2025 11:42:44
--- OUTSIDE RECORDS SUMMARY | 2025-05-12 08:22 | XMS_ITS | Continuity of Care Document ---
Author Organization [facility] Infectious Disease -105 Address [address] [facility] [address] [place] [address] Care Team Providers Care Separating Machine Operator Name Role Phone SYBIL WILLIAM Primary [...] ne hyclate 100 mg capsule 2024 025 [facility], [address], [address], 05/05/2025 10:47:50 Patient TargetsNo targets recorded. Patient InstructionsNo instructions recorded. Reason for Referral None Reported. Results Created Date Observation Date Name Description Value Unit Range Abnormal Flag Note LastModifiedBy Organization Detail LastModifiedTime Result Notes None recorded. Problems Name Problem SNOMED Code Status Onset Date Resolution Date Notes Provider Name and Address Organization Details Recorded Time Methicillin resistant Staphylococ cus aureus infection 323665942 Active 2023 YVON Palomo [facility] & [place] 10:16:00 High risk medication monitoring indicated 2525686371252 9103 Active 2023 YVON Palomo [facility] & [place] 10:16:36 Problem Notes None recorded. Procedures Surgical History Date Name Laterality Status Provider Name and Address Organization Details Recorded Time 03/26/20 24 Venipuncture cancelled Luci Ag PA-C [address] , [place], [address], [facility] & [place] 03/18/2024 14:56:10 10/24/19 24 Venipuncture completed Luci Ag PA-C [address], [place], [address], [facility] & [place] 10/23/2023 10:53:19 07/25/19 24 Venipuncture completed [facility] & [place] 07/25/2023 14:41:20 amputation of lower limb completed [facility] & [place] 07/25/2023 13:57:05 Imaging Results None recorded. Procedure Notes None recorded. Medical Equipment None Reported. Allergies Allergen ID Allergen Name Allergen Category Reaction Reaction Severity Criticality Documentation Date Start Date Code Code System Note Provider Name and Address Organization Details Recorded Time 121937 cefdinir medicatio n Not available Not available Not available 06/02/2023 86966 RxNorm Isabel Kay [facility] & [place] 10:06:00 Medications Name Sig Start Date Stop [...] active Not Available Not Available Not Available [facility] 10 billion cell-200 mg sprinkle capsule [...] /min 94 % 94 % 41.8 kg/m2 968869. 71 g 97.5 [degF] 120/70 mm[Hg] Amy Farnsworth [facility] & [place] 10:30:54 Social History Question Answer Notes LastModified by Organizat ion Details LastModified Time Tobacco Smoking Status Never Smoker [facility] & [place] 06/02/2023 10:06:28 Do You Have An Advance Directive? No [email or web address] Information not available 04/28/2025 Are You Blind Or Do You Have Difficulty Seeing? No Information not available 04/28/2025 What Was The Date Of Your Most Recent Tobacco Screening? 04/20/2025 [email or web address] Information not available 04/28/2025 Are You Passively Exposed To Smoke? No [email or web address] Information not available 04/28/2025 Sex: Unknown Functional Status Question Answer Note LastModified by Organizat ion Details LastModified Time Do you use any illicit or recreational drugs? No [email or web address] Information not available 07/25/2023 What is your level of alcohol consumption? None [email or web address] Information not available 04/28/2025 Mental Status None recorded. Family History Nothing Reported. Medical History Condition Response Back Problems Y Clotting Disorder Y Hypertension Y Immunizations Vaccine Type Date Status Note Provider Nam kirt and Address Organization Details Recorded Time Td (adult), 2 Lf tetanus toxoid, preservative free, adsorbed 6 completed [facility] [place] [facility] [place] & [place] 07/25/2023 13:54:15 Past Encounters Encounter ID Performer Location Encounter Start Date Encounter Closed Date Diagnosis/Indication Diagnosis SNOMED-CT Code Diagnosis ICD10 Code Diagnosis IMO Codes Diagnosis Note [id number] Randy Torres MD [facility] Infectiou s Disease -[address] [place] [address] 04/28/2025 11:00:57 04/28/2025 11:33:23 Osteomyelitis 26100414 M86.9 119366 This patient has a recurrentc hronic osteomyeli [...] week. Methicilli n resistant Staphylococcus aureus infection 160468650 B95.62 9902304 As above [id number] Randy Torres MD [facility] Infectiou s Disease -[address] [place] [address] 05/05/2025 10:21:03 05/05/2025 10:37:01 Chronic osteomyelitis of right tibia 8451988531 781316 M86.461 03212609 This is recurrent and involves the right [...] today. Methicilli n resistant Staphylococcus aureus infection 972834463 A49.02 402337 This is the pathogen as above. Taking hig h risk medication 2086208504 67162 Z79.135 6177482 This is related to the long-term intravenou [...] Brantley Member ID Guarantor Name 05/05/2025 2 MEDICAID-[facility] HEALTH CHOICES - FFS/TRADITIO NAL Won Dennis [id number] Won Dennis 05/05/2025 1 [place] Won Dennis [id number] Won Dennis Notes Date Note Type Note [...] at the infusion center in [facility]. His stump is doing well. All surgical incisions remain healed. There has been no undue pain or swelling. No redness. No drainage. Randy Torres MD [address] [facility], [place], [address], [place] - [facility] - [place] & [place] 05/05/2025 10:41:36
--- OUTSIDE RECORDS SUMMARY | 2025-05-12 08:24 | XMS_ITS | Encounter Summary ---
Author Organization [facility] Address [address] [place] [address] Care Team Providers Care Application Development Liaison Name Role Phone Unavailable Primary Care Provider Unavailabl e Encounter Details Date Type Department Care Team (Late st Contact Info) Description 10/03/2022 Lab Requisition [facility] Lab [address] [place] [address] Dalila Cox MD [address] [place], [place] [id number] Encounter for general adult medical examination without [...] Culture Neelima albicans(A) 10/05/2022 11:58 AM EDT StartSampling LAB Comment: This result was determined by MALDI tof Mass spectrometry. This assay was developed and its performance characteristics determined by [facility] as appropriate for clinical purposes. [...] Edited Result - Final [facility] [address] [place] [address] documented in this encounter Visit Diagnoses Diagnosis Encounter for general adult medical examination without abnormal findings documented in this encounter
--- OUTSIDE RECORDS SUMMARY | 2025-05-12 08:24 | XMS_ITS | Encounter Summary ---
Author Organization Healthcare Address [address] [place] [address] Care Team Providers Care Plastic Press Operator Name Role Phone Unavailable Primary Care Provider Unavailabl e Encounter Details Date Type Department Care Team (Late st Contact Info) Description 05/13/2023 Lab Requisition [facility] [address] [place] [address] Sushil Dean MD [address] [facility] [place] [address] Encounter for general adult medical examination without [...] Health [facility] Co de Phone Number [facility] [address] [place] [address] * Anaerobic Culture (05/13/2023 9:17 AM EDT) Culture No growth at day 4 05/20/2023 10:35 AM EST [facility] Bone 05/13/2023 9:17 AM EDT 05/13/2023 1:25 PM EDT us Sushil Dean MD LAB MICROBIOLOGY - GENERAL O RDERABLES Final Result Performing Organization Address [facility] de Phone Number [facility] [address] [place] [address] * Bone Culture and Gram Stain (05/13/2023 [...] Health [facility] de Phone Number [facility] [address] [place] [address] documented in this encounter Visit Diagnoses Diagnosis Encounter for general adult medical examination without abnormal findings documented in this encounter
--- OUTSIDE RECORDS SUMMARY | 2025-05-12 08:24 | XMS_ITS | Encounter Summary ---
Author Organization Healthcare Address [address] [place] [address] Care Team Providers Care Pouncer Machine Name Role Phone Unavailable Primary Care Provider Unavailabl e Encounter Details Date Type Department Care Team (Late st Contact Info) Description 10/01/2022 Lab Requisition [facility] [address] [place] [address] Sushil Dean MD [address] [facility] [place] [address] Encounter for general adult medical examination without [...] has been identified using the FDA Approved [employer] [place] System The organism value for this [...] 10/04/2022 2:17 PM EDT Refer to culture [id number] FOR SUSCEPTIBILITIES ON NEELIMA ALBICANS us Sushil Dean MD LAB MICROBIOLOGY - GENERAL O RDERABLES Final Result [facility] [address] [place] [address] documented in this encounter Visit Diagnoses Diagnosis Encounter for general adult medical examination without abnormal findings documented in this encounter
--- OUTSIDE RECORDS SUMMARY | 2025-05-12 08:24 | XMS_ITS | Clinical Summary ---
Author Organization [facility] Address [address] [place] [address] Care Team Providers Care Bundler Seasonal Greenery Name Role Phone Provider, No Known Primary [...] Description 04/08/2025 3:34 PM EDT Anesthesia Event [facility] OR [address] [place] [phone] Ulises Hoffman MD Wells, Jeremy B., MD 04/08/2025 2:45 PM EDT - 04/08/2025 4:04 PM EDT Surgery [facility] OR [address] [place] [phone] Sushil Dean Jr., MD LEG DEBRIDEMENT AND IRRIGATION 04/07/2025 8:36 PM EDT Anesthesia Event [facility] OR [address] [place] [phone] Luci Alonso DO 04/07/2025 6:00 PM EDT - 04/07/2025 6:52 PM EDT Surgery [facility] OR [address] [place] [phone] Sushil Dean Jr., MD LEG DEBRIDEMENT, IRRIGATION 04/04/2025 4:10 PM EDT - 04/11/2025 1:58 PM EDT Hospital Encounter [facility] [address] [place] [phone] Mario Crowley, Leonora Calderon MD Gay, Bryce, [...] drink = 0.6 oz pur e alcohol) Virtual Call Center[facility] Answer Date Recorded In the past 12 months has KAL, gas, oil, or water [facility] threatened to shut off services in your [...] this topic Medical Devices Implanted Type Area Sheet Metal Lay Out Worker Device Identifier Shelf Expiration Date Model / Serial / Lot Dev Wnd/Cls Contrl Tiss Stratafix Spiral Pls Pds Ct1 0 22cm - [id number] Implanted:Qty: 1 on 04/08/2025 by Sushil Dean Jr., MD at [facility] Implant Right: Leg [employer] 12/07/2025 [id number] / / [id number] Procedures Procedure Name Priority [...] 3.40 - 10.80 10*3/mm3 [facility] RBC 4.70 4.14 - 5.80 10*6/mm3 04/11/2025 4:02 AM [facility] Hemoglobin 12.8(L) 13.0 - 17.7 g/dL 04/11/2025 4:02 AM [facility] Hematocrit 40.5 37.5 - 51.0 % 04/11/2025 [facility] MCV 86.2 79.0 - 97.0 fL 04/11/2025 4:02 AM [facility] MCH 27.2 26.6 - 33.0 pg 04/11/2025 4:02 AM [facility] MCHC 31.6 31.5 - 35.7 g/dL 04/11/2025 4:02 AM [facility] RDW 12.9 12.3 - 15.4 % 04/11/2025 4:02 AM [facility] RDW-SD 40.5 37.0 - 54.0 fl 04/11/2025 4:02 AM [facility] MPV 9.2 6.0 - 12.0 fL 04/11/2025 4:02 AM [facility] Platelets 267 140 - 450 10*3/mm3 04/11/2025 4:02 AM [facility] Neutrophil % 59.5 42.7 - 76.0 % 04/11/2025 4:02 AM [facility] Lymphocyte % 26.3 19.6 - 45.3 % 04/11/2025 4:02 AM [facility] Monocyte % 9.3 5.0 - 12.0 % 04/11/2025 4:[facility] Eosinophil % 4.1 0.3 - 6.2 % 04/11/2025 4:[facility] Basophil % 0.4 0.0 - 1.5 % 04/11/2025 4:02 [facility] Immature Grans % 0.4 0.0 - 0.5 % 04/11/2025 4:02 AM EDT [facility] Neutrophils, Absolute 4.69 1.70 - 7.00 10*3/mm3 04/11/2025 4:02 AM EDT [facility] Lymphocytes, Absolute 2.07 0.70 - 3.10 10*3/mm3 04/11/2025 4:02 AM EDT [facility] Monocytes, Absolute 0.73 0.10 - 0.90 10*3/mm3 04/11/2025 4:02 AM EDT [facility] Eosinophils, Absolute 0.32 0.00 - 0.40 10*3/mm3 04/11/2025 4:02 AM EDT [facility] Basophils, Absolute 0.03 0.00 - 0.20 10*3/mm3 04/11/2025 4:02 AM EDT [facility] Immature Grans, Absolute 0.03 0.00 - 0.05 10*3/mm3 04/11/2025 4:02 AM EDT [facility] nRBC 0.0 0.0 - 0.2 /100 WBC 04/11/2025 4:02 AM EDT [facility] Blood Venipuncture / Unknown 04/11/2025 3:40 AM EDT 04/11/2025 3:59 AM EDT us Sushil Dean Jr., MD LAB BLOOD ORDERABLES Fi nal Result [facility]
[address] [place] [address], * (ABNORMAL) Comprehensive Metabolic Panel (04/11/2025 3:40 AM EDT) Only the most recent of2 resultswithin the time period is included. [facility] Glucose 108(H) 65 - 99 mg/dL 04/11/2025 4:19 AM EDT [facility] BUN 12.5 6.0 - 20.0 mg/dL 04/11/2025 4:19 AM [facility] Creatinine 0.68(L) 0.76 - 1.27 mg/dL 04/11/2025 4:19 AM [facility] Sodium 140 136 - 145 mmol/L 04/11/2025 4:19 AM [facility] Potassium 3.8 3.5 - 5.2 mmol/L 04/11/2025 4:19 AM [facility] Chloride 105 98 - 107 mmol/L 04/11/2025 4:19 AM [facility] CO2 28.2 22.0 - 29.0 mmol/L 04/11/2025 4:19 AM [facility] Calcium 8.2(L) 8.6 - 10.5 mg/dL 04/11/2025 4:19 AM [facility] Total Protein 6.1 6.0 - 8.5 g/dL 04/11/2025 4:19 AM [facility] Albumin 3.1(L) 3.5 - 5.2 g/dL 04/11/2025 4:19 AM [facility] ALT (SGPT) 52(H) 1 - 41 U/L 04/11/2025 4:19 AM [facility] AST (SGOT) 40 1 - 40 U/L 04/11/2025 4:19 AM [facility] Alkaline Phosphatase 99 39 - 117 U/L 04/11/2025 4:19 AM [facility] Total Bilirubin 0.2 0.0 - 1.2 mg/dL 04/11/2025 4:19 AM [facility] Globulin 3.0 gm/dL 04/11/2025 4:19 AM [facility] Comment:Calculated Result A/G Ratio 1.0 g/dL 04/11/2025 4:19 AM [facility] BUN/Creatinine Ratio 18.4 7.0 - 25.0 04/11/2025 4:19 AM [facility] Anion Gap 6.8 5.0 - 15.0 mmol/L 04/11/2025 4:19 AM EDT [facility] eGFR 117.5 >60.0 mL/min/1.7 3 04/11/2025 4:19 AM EDT [facility] Blood Venipuncture / Unknown 04/11/2025 3:40 AM EDT 04/11/2025 3:56 AM EDT Narrative [facility] - 04/11/2025 4:19 AM EDT [...] include race as a factor Rosario Hill HAND MIXER LAB BLOOD ORDERABLES Final Result [facility]
[address] [place] [address], * Heparin Anti-Xa (04/10/2025 3:46 AM EDT) Only the most recent of13 resultswithin the time period is included. Heparin Anti-Xa (UFH) 0.35 0.30 - 0.70 IU/ml 04/10/2025 4:23 AM EDT [facility] Blood Venipuncture / Unknown 04/10/2025 3:46 AM EDT 04/10/2025 3:53 AM EDT Larisa Hamilton [facility] LAB BLOOD ORDERABLES Final R esult [facility]
[address] [place] [address], * (ABNORMAL) Basic Metabolic Panel (04/10/2025 3:46 AM EDT) Only the most recent of6 resultswithin the time period is included. Pathologist [facility] Glucose 125(H) 65 - 99 mg/dL 04/10/2025 4:20 AM EDT [facility] BUN 15.9 6.0 - 20.0 mg/dL 04/10/2025 4:20 AM EDT [facility] Creatinine 0.77 0.76 - 1.27 mg/dL 04/10/2025 4:20 AM EDT [facility] Sodium 137 136 - 145 mmol/L 04/10/2025 4:20 AM EDT [facility] Potassium 3.9 3.5 - 5.2 mmol/L 04/10/2025 4:20 AM EDT [facility] Chloride 102 98 - 107 mmol/L 04/10/2025 4:20 AM EDT [facility] CO2 26.9 22.0 - 29.0 mmol/L 04/10/2025 4:20 AM EDT [facility] Calcium 7.9(L) 8.6 - 10.5 mg/dL 04/10/2025 4:20 AM EDT [facility] BUN/Creatinine Ratio 20.6 7.0 - 25.0 04/10/2025 4:20 AM EDT [facility] Anion Gap 8.1 5.0 - 15.0 mmol/L 04/10/2025 4:20 AM EDT [facility] eGFR 113.2 >60.0 mL/min/1.7 3 04/10/2025 4:20 AM [facility] Blood Venipuncture / Unknown 04/10/2025 3:46 AM EDT 04/10/2025 3:52 AM EDT [facility] - 04/10/2025 4:20 AM [...] ORDERABLES Final Resul t Performing Organization Address City/[facility] Co de Phone Number [facility]
[address] [place] [address], * Wound Culture - Swab, Leg, Right (04/08/2025 3:40 PM EDT) Only the most recent of3 resultswithin the time period is included. Wound Culture No growth at 3 days ALIZA 04/11/2025 10:40 AM EDT [facility] Gram Stain Few (2+) WBCs seen 04/11/2025 10:40 AM EDT [facility] Gram Stain No organisms seen 04/11/2025 10:40 AM EDT [facility] Swab Structure of right lower limb / Unknown 04/08/2025 3:40 PM EDT 04/08/2025 8:05 PM EDT Sushil Dean Jr., MD MICROBIOLOGY - GENERAL ORDERABLES Final Result Performing Organization Address [facility] Co de Phone Number [facility]
[address] [place] [address], [facility]
[address] [place] [address], * Anaerobic Culture - Swab, Leg, Right [...] GENERAL ORDERABLES Final Result Performing Organization Address City/[facility] Co de Phone Number [facility]
[address] [place] [address], * Scan Slide (04/08/2025 8:41 AM EDT) RBC Morphology Normal Normal 04/08/2025 11:02 AM EDT [facility] WBC Morphology Normal Normal 04/08/2025 11:02 AM EDT [facility] Platelet Estimate Adequate Normal 04/08/2025 11:02 AM EDT [facility] Clumped Platelets Present None Seen 04/08/2025 11:02 AM EDT [facility] Blood Venipuncture / Unknown 04/08/2025 8:41 AM EDT 04/08/2025 9:10 AM EDT Una Perla PharmD LAB BLOOD ORDERABLES Final R esult Performing Organization Address [facility] Co de Phone Number [facility]
[address] [place] [address], * FL C Arm During Surgery (04/07/2025 [...] (1+) WBCs seen 04/11/2025 10:36 AM EDT [facility] Gram Stain No organisms seen 04/11/2025 10:36 AM EDT [facility] Tissue Structure of right lower limb / Unknown 04/07/2025 9:13 PM EDT 04/08/2025 4:54 AM EDT us Sushil Dean Jr., MD MICROBIOLOGY - GENERAL ORDERABLES Final Result [facility]
[address] [place] [address], [place] [phone] [facility]
[address] [place] [address], [place] [phone] * BH AN ETT AIRWAY (04/07/2025 8:44 [...] [place] 04/07/2025 9:58 AM EDT Workstation ID: [id number] Narrative 04/07/2025 9:58 AM EDT MRI TIBIA [...] [place] 04/07/2025 9:58 AM EDT Workstation ID: [id number] us Sushil Dean Jr., MD IM MRI ORDERABLES Mary Beth l Result * Potassium (04/06/2025 7:16 PM EDT) Potassium 4.0 3.5 - 5.2 mmol/L 04/06/2025 7:53 PM EDT [facility] Blood Venipuncture / Unknown 04/06/2025 7:16 PM EDT 04/06/2025 7:35 PM EDT Jason Álvarez DO LAB BLOOD ORDERABLES Final Resul t Performing Organization Address City/[facility]/ZIP Co de Phone Number [facility]
[address] [place] [address], * CK (04/05/2025 12:15 PM EDT) Creatine Kinase 140 20 - 200 U/L 04/05/2025 1:31 PM EDT [facility] Blood Venipuncture / Unknown 04/05/2025 12:15 PM EDT 04/05/2025 1:03 PM EDT Carlton Mead MD LAB BLOOD ORDERABLES Final R esult Performing Organization Address [facility] Co de Phone Number [facility]
[address] [place] [address], * (ABNORMAL) aPTT (04/05/2025 3:54 AM EDT) Only the most recent of2 resultswithin the time period is included. PTT 35.3(L) 60.0 - 90.0 seconds 04/05/2025 4:31 AM EDT [facility] Blood Venipuncture / Unknown 04/05/2025 3:54 AM EDT 04/05/2025 4:15 AM EDT Narrative [facility] - 04/05/2025 4:31 AM EDT PTT = The equivalent PTT values for the therapeutic range of heparin levels at 0.3 to 0.5 U/ml are 60 to 70 seconds. Una LundbergD LAB BLOOD ORDERABLES Final R esult Performing Organization Address [facility] Co de Phone Number [facility]
[address] [place] [address], * (ABNORMAL) Protime-INR (04/05/2025 12:18 AM EDT) [facility] Protime 15.9(H) 12.2 - 15.3 Seconds 04/05/2025 12:53 AM EDT [facility] INR 1.19(H) 0.89 - 1.12 04/05/2025 12:53 AM EDT [facility] Blood Venipuncture / Unknown 04/05/2025 12:18 AM EDT 04/05/2025 12:37 AM EDT Una Perla PharmD LAB BLOOD ORDERABLES Final R esult Performing Organization Address [facility] Co de Phone Number [facility]
[address] [place] [address], * POC Creatinine (04/04/2025 2:49 PM EDT) [facility] Creatinine 1.10 0.60 - 1.30 mg/dL 04/07/2025 7:14 PM EDT [facility] Comment:Serial Number: [id number] 7Operator: [id number] Venous Blood 04/04/2025 2:49 PM EDT 04/07/2025 7:14 PM EDT Jason Álvarez DO POINT OF CARE TEST ORDERABLES Fi nal Result Performing Organization Address [facility] Co de Phone Number [facility]
[address] [place] [address], * (ABNORMAL) Sedimentation Rate (04/04/2025 2:47 PM EDT) [facility] Sed Rate 51(H) 0 - 15 mm/hr 04/04/2025 3:06 PM EDT [facility] Blood Venipuncture / Unknown 04/04/2025 2:47 PM EDT 04/04/2025 2:52 PM EDT Mario Ortiz [facility] LAB BLOOD ORDERABLES Fin al Result Performing Organization Address City/[facility]/ZIP Co de Phone Number [facility]
[address] [place] [address], * (ABNORMAL) C-reactive Protein (04/04/2025 2:47 PM EDT) C-Reactive Protein 8.57(H) 0.00 - 0.50 mg/dL 04/04/2025 3:26 PM EDT [facility] Blood Venipuncture / Unknown 04/04/2025 2:47 PM EDT 04/04/2025 2:52 PM EDT [facility]iz [facility] BLOOD ORDERABLES Fin al Result Performing Organization Address City/[facility] de Phone Number [facility]
[address] [place] [address], from Last 3 Months Additional Health Concerns [...] Of Support Discussed With: Patient Care Teams Bundler Seasonal Greenery Relationship Specialty Start Date End Date Provider, [place] [address] PCP - General 05/09/23
--- OUTSIDE RECORDS SUMMARY | 2025-05-12 08:24 | XMS_ITS | Encounter Summary ---
Author Organization Healthcare Address [address] [place] [address] Care Team Providers Care Terrazzo Supervisor Name Role Phone Unavailable Primary Care Provider Unavailabl e Encounter Details Date Type Department Care Team (Late st Contact Info) Description 10/19/2022 Lab Requisition [facility] [address] [place] [address] Sushil Dean MD [address] [place] [address] Encounter for general adult medical examination without [...] by MALDI tof mass spectrometry using the NetVision database and is for research use only. The organism value for this result has been updated. These results have been appended to the previously preliminary verified report. Bone Specimen from bone / Unknown 10/19/2022 5:17 PM EDT 10/19/2022 9:49 PM EDT Sushil Dean MD LAB MICROBIOLOGY - GENERAL O RDERABLES Final Result Performing Organization Address [facility] de Phone Number [facility]ALTH[facility]ARE [facility] [address] [place] [address] * Bone Culture and Gram Stain (10/19/2022 5:17 PM EDT) Culture No growth at day 4 2022 8:14 AM EDT [facility] Gram Stain Result Few Polymorphonuclear leukocytes 10/23/2022 8:14 AM EDT [facility] Gram Stain Result No organisms seen 10/23/2022 8:14 AM EDT [facility] Bone Specimen from bone / Unknown 10/19/2022 5:17 PM EDT 10/19/2022 9:49 PM EDT Sushil Dean MD LAB MICROBIOLOGY - GENERAL O RDERAADDI Final Result Performing Organization Address [facility] Phone Number [facility] [address] [place] [address] documented in this encounter Visit Diagnoses Diagnosis Encounter for general adult medical examination without abnormal findings documented in this encounter
--- OUTSIDE RECORDS SUMMARY | 2025-05-12 08:24 | XMS_ITS | Encounter Summary ---
Author Organization Healthcare Address [address] [place] [address] Care Team Providers Care Silverware Buffer Name Role Phone Unavailable Primary Care Provider Unavailabl e Encounter Details Date Type Department Care Team (Late st Contact Info) Description 07/20/2022 Lab Requisition [facility] [address] [place] [address] Sushil Dean MD [address] [place] [address] Encounter for general adult medical examination without [...]
--- OUTSIDE RECORDS SUMMARY | 2025-05-12 08:24 | XMS_ITS | Encounter Summary ---
Author Organization [facility] Address [address] [place] [address] Care Team Providers Care Beeswax Bleacher Name Role Phone Provider, No Known Primary [...] 2:25 PM EDT Cherri Grimm RN * [place] Suicide Severity Rating Scale (Screener/Recent Self-Report) Question [...] documented as of this encounter Care Teams Beeswax Bleacher Relationship Specialty Start Date End Date Provider, No Known [facility] [place] [address] PCP - General 05/09/23 documented as of this encounter
--- OUTSIDE RECORDS SUMMARY | 2025-05-12 08:24 | XMS_ITS | Encounter Summary ---
Author Organization Healthcare Address [address] [place] [address] Care Team Providers Care Unattended Ground Sensor Specialist Name Role Phone Unavailable Primary Care Provider Unavailabl e Encounter Details Date Type Department Care Team (Late st Contact Info) Description 08/12/2022 Lab Requisition [facility] [address] [place] [address] Sushil Dean MD [address] [place] [address] Encounter for general adult medical examination without [...] has been identified using the FDA Approved SpinMedia Grouper CA System The organism value for this [...] O ERIC Final Result Performing Organization Address City/[facility] de Phone Number HEALTHCARE LAB [address] [place] [address] * Bone Culture and Gram Stain (08/12/2022 [...] O RDERABLES Final Result Performing Organization Address City/[facility] de Phone Number [facility] [address] [place] [address] documented in this encounter Visit Diagnoses Diagnosis Encounter for general adult medical examination without abnormal findings documented in this encounter
--- OUTSIDE RECORDS SUMMARY | 2025-05-12 08:25 | XMS_ITS | Clinical Summary ---
Author Organization Healthcare Address [address] [place] [address] Care Team Providers Care Curatorial Specialist Name Role Phone Unavailable Primary Care [...]
--- OUTSIDE RECORDS SUMMARY | 2025-05-12 08:25 | XMS_ITS | Encounter Summary ---
Author Organization Healthcare Address [address] [place] [address] Care Team Providers Care Bdr Name Role Phone Unavailable Primary Care Provider Unavailabl e Encounter Details Date Type Department Care Team (Late st Contact Info) Description 07/20/2022 Lab Requisition [facility] [address] [place] [address] Sushil Dean MD [address] [place] [address] Encounter for general adult medical examination without [...] at day 4 07/27/2022 11:32 AM EST [facility] Bone Specimen from bone / Unknown 07/20/2022 1:36 PM EST 07/20/2022 5:52 PM EST us Sushil Dean MD LAB MICROBIOLOGY - GENERAL O RDERABLES Final Result Performing Organization Address City/[facility] Co de Phone Number HEALTHCARE LAB [address] [place] [address] * Bone Culture and Gram Stain (07/20/2022 1:36 PM EST) Culture No growth at day 4 2022 9:16 AM EST [facility] Gram Stain Result Rare Polymorphonuclear leukocytes 07/24/2022 9:16 AM EST [facility] Gram Stain Result No organisms seen 07/24/2022 9:16 AM EST [facility] Bone Specimen from bone / Unknown 07/20/2022 1:36 PM EST 07/20/2022 5:52 PM EST us Sushil Dean MD LAB MICROBIOLOGY - GENERAL O RDERABLES Final Result Performing Organization Address City/[facility] Co de Phone Number [facility]ARE [facility] [address] [place] [address] documented in this encounter Visit Diagnoses Diagnosis Encounter for general adult medical examination without abnormal findings documented in this encounter
--- OUTSIDE RECORDS SUMMARY | 2025-05-12 08:25 | XMS_ITS | Encounter Summary ---
Author Organization Healthcare Address [address] [place] [address] Care Team Providers Care Boat Finisher Name Role Phone Unavailable Primary Care Provider Unavailabl e Encounter Details Date Type Department Care Team (Late st Contact Info) Description 05/17/2023 Lab Requisition [facility] [address] [place] [address] Sushil Dean MD [address] [facility] [address] [place] [address] Encounter for general adult medical examination without [...] O RDERABLES Final Result Performing Organization Address City/[facility] Co de Phone Number [facility] [address] [place] [address] * Bone Culture and Gram Stain (05/17/2023 [...] O RDERABLES Final Result Performing Organization Address [facility] Co de Phone Number [facility] [address] [place] [address] documented in this encounter Visit Diagnoses Diagnosis Encounter for general adult medical examination without abnormal findings documented in this encounter
[2025-05-12 08:31] LABS: Hematocrit 45.3 % (42.0-52.0); Hemoglobin 14.9 g/dL (14.1-18.0); Immature Granulocytes % 0.2 %; Mean Corpuscular HGB Conc 32.9 g/dL (31.8-35.4); Mean Corpuscular Hemoglobin 27.7 pg (27.0-31.2); Mean Corpuscular Volume 84.4 fl (80-94); Nucleated Red Blood Cells % 0 %; Platelet Count 199 K/mm3 (142-424); Red Blood Count 5.37 M/mm3 (4.60-6.20); Red Cell Distribution Width-SD 40.0 fL; White Blood Count 6.5 K/mm3 (4.8-10.8)
[2025-05-12] MEDS: SODIUM CHLORIDE 0.9% 10ML FLUSH SYRINGE 10 ML IV (08:33)
[2025-05-12] MEDS: DAPTOmycin 1,000 MG in 0.9 % SODIUM CHLORIDE 50 ML 100 MG IV (08:33)
[2025-05-12 08:34] VITALS: BP 124/89; PULSE 78; RESP 16; TEMP 36.7; O2SAT 98
[2025-05-12 08:42] LABS: Alanine Aminotransferase 53 U/L (12-78); Albumin Level 4.1 g/dl (3.5-5.0); Albumin/Globulin Ratio 1.1 (1.1-1.8); Alkaline Phosphatase 95 U/L (38-126); Anion Gap 11.8 mEq/L (5-15); Aspartate Amino Transferase 39 U/L (17-59); Bilirubin,Total 0.7 mg/dl (0.2-1.3); Blood Urea Nitrogen 17 mg/dl (9-20); Calcium 8.6 mg/dl (8.4-10.2); Carbon Dioxide 24 mmol/L (22.0-30.0); Chloride 106 mmol/L (98-107); Creatinine,Serum 0.90 mg/dl (0.66-1.25); Estimated Glomerular Filt Rate 92 ml/min (>60); GFR (African American) 111 ML/MIN (>60); Globulin 3.6 g/dL (1.3-3.2); Glucose 111 mg/dl (74-100); Potassium 3.8 mmoL/L (3.5-5.1); Sodium 138 mmol/L (136-145); Total Protein,Serum 7.7 g/dl (6.3-8.2)
[2025-05-12 08:48] LABS: C-Reactive Protein 13.3 mg/L (0-4)
[2025-05-12 09:10] VITALS: BP 138/82; PULSE 80; RESP 16; O2SAT 98
[2025-05-12 09:20] LABS: Creatine Kinase 291 U/L (55-170)
== END 2025-05-12 23:59 | disposition home or self-care (01) ==
LOC: INF 08:19
PROVIDERS: PCP Nurse Practitioner Family; Visit Provider Internal Medicine Infectious Disease
DX: L03.115 Cellulitis of right lower limb (principal); L02.415 Cutaneous abscess of right lower limb; L30.9 Dermatitis, unspecified; D68.2 Hereditary deficiency of other clotting factors; I10 Essential (primary) hypertension; E78.5 Hyperlipidemia, unspecified; F39 Unspecified mood [affective] disorder
CPT/HCPCS: 36592; 80053; 82550; 85025; 85651; 86140; 96365; J0878

== ENCOUNTER 2025-05-13 08:11 | Outpatient (CLI) | payer MEDICARE, SELFPAY ==
--- OUTSIDE RECORDS SUMMARY | 2023-12-12 04:00 | XMS_ITS ---
Author Organization [facility] Address 1210 [facility] 36 [facility] 2C YVON Sykes [phone] Care Team Providers Care Dieing Out Machine Operator Name Role Phone Zeeshan Salazar Primary Care Provider [phone] Macario Burkett [phone] REASON FOR VISIT 6 Month Check Up Encounters Encounter Location Date Provider Diagnosis [facility] 1210 [facility] [address] [place] [phone] 12/12/2023 Macario Burkett Plan Of Treatment No Information Progress Notes * Won MEDRANO ZeeshanDOB: [birth year] (44 yo M)Acc No.[id number]:12/12/2023 Progress Notes Patient: Won SPANN Provider: Colleen Burkett M.D. :1980 A ge:43 Y S ex:Male Date:12/12/2023 Address:[address] [place] [address] Onel THACKER [id number] Pcp:Zeeshan Salazar Subjective: * Chief Complaints: * 1 . 6 Month Check Up. * Medical History: Objective: * Vitals: Assessment: Plan: * Treatment: * Images: Billing Information: * Visit Code: * Procedure Codes: * Electronic signature of Micaela Burkett MD on 05/13/2025 at 08:18 AM EST Sign off status: Pending * Provider: Colleen Burkett M.D. Date: 12/12/2023 Generated for Nany jorgensen/Elaine/Lisbethitting on: 07/13/2024 08:18 AM EST
--- OUTSIDE RECORDS SUMMARY | 2025-04-04 15:10 | XMS_ITS | Encounter Summary ---
Author Organization [facility] Address [address] [place] [address] Care Team Providers Care Communication Equipment Mechanic Name Role Phone Provider, No Known Primary Care Provider Unavail able Reason for Visit * Reason Comments Leg Swelling * Auth/Cert Specialty Diagnoses / Procedures Referred By Contlevy t Referred To Contact Diagnoses Right BKA infection Referral ID Status Reason Start Date Expiration Date Visits Re quested Visits Authorized [id number] 1 1 Encounter Details Date Type Department Care Team (Late st Contact Info) Description 04/04/2025 4:10 PM EDT - 04/11/2025 1:58 PM EDT Hospital Encounter [address] [place] [address] Mario Crowley, [address] [place] [address] Leonora Shepherd MD [address] [address] Jason Álvarez DO [address] [address] Jadyn Richardson DO [address] [address] Cellulitis of right lower extremity (Primary Dx); Below-knee amputation of right lower extremity, initial encounter; Right BKA infection Discharge Disposition: Home or Self Care Social History Tobacco Use Types Packs/Day Years Used Date Smoking Tobacco: Never Smokeless Tobacco: Never Tobacco Cessation:Counseling Given: Not Answered Alcohol Use Standard Drinks/Week Comments Not Currently 0 (1 standard drink = 0.6 oz pur e alcohol) [facility] Utilities Answer Date Recorded In the past 12 months has th e [employer] Top-Level Domain, gas, oil, or water company threatened to [...] or training? Not on file Preferred Language Belizean 04/07/2025 Sex and Gender Information Value Date [...] 2:25 PM EDT Cherri Grimm RN * [place] Suicide Severity Rating Scale (Screener/Recent Self-Report) Question [...] from the original note were not included. [facility] Medicine Services DISCHARGE SUMMARY Patient Name: Won [...] Date/Time Wound Culture - Swab, Leg, Right [[id number]] (Abnormal) (Susceptibility) Collected: 04/07/252106 Lab Status: Final [...] Units Date/Time FL C Arm During Surgery [[id number]] Resulted: 04/07/252137 Updated: 04/07/252137 Narrative: This procedure was auto-finalized with no dictation required. MRI Tibia Fibula Right With & Without Contrast [[id number]] Collected: 04/07/25 0938 Updated: 04/07/25 1001 Narrative: [...] Buenrostro 04/07/2025 9:58 AM EDT Workstation ID: [id number] MRI Tibia Fibula Right With & Without Contrast [[id number]] Collected: 04/04/252256 Updated: 04/04/252302 Narrative: MRI TIBIA [...] represent a small area of phlegmonous change (cixryc19 image 10) measuring approximately 1.6 cm which [...] MD 04/04/2025 11:00 PM EDT Workstation ID: [id number] Pending Labs Order Current Status Fungus Culture [...] FLOMAX 1 capsule, Nightly Stop These Medications [facility] capsule doxycycline 100 MG tablet Commonly known [...] Male) Date of 1980 Social Security Number [id number] [place] [address] Congregational Unknown Marital Status Unknown Admission Date 04/04/2025 Admission Type Emergency Admitting Provider Jadyn Richardson DO Attending Provider Jadyn Richardson DO Department, Room/Bed [address], S565/1 Discharge Date Discharge Disposition Discharge [...] Group [place] [id number] Payor Plan Address Payor Plan Phone Number Payor Plan Fax Number Effective Dates [employer] [address] [address] 08/10/2023 - None Entered [place] [address] Subscriber Name Subscriber Date Member ID WON DENNIS 1980 [id number] Emergency Contacts Literature Teacher (Rel.) Home Phone Work Phone Mobile Phone Avril Dennis (Spouse) -- -- [phone] LewRobert (Relative) -- -- [phone] [facility] [address] Patient: ROOM: [facility] Won Dennis [address] [place] [facility] [address] : 1980 SSN: [id number] Sex: M PCP: Provider, No Known Emergency Contact Information Name Relation Home Work Mobile Avril Dennis Spouse [phone] Other Contacts Name Relation Home Work Mobile Robert Hackett Relative [phone] INSURANCE PAYOR [employer]AN [employer] # SUBSCRIBER ID Primary: Secondary: MEDICARE [employer] [id number] Admitting Diagnosis: 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] Order Date: Apr 09, 2025 Case Management Dry Plasterer Consult (Order ID: [id number]) Diagnosis: Priority: Routine Expected Date: Expiration Date: Interval: Once Count: Comments: Outpatient orders: 1. Outpatient intravenous antibiotic therapy: Daptomycin 800 mg IV daily to be supplied by [facility] 2. Home health to perform [...] INFECTIOUS DISEASE Progress Note Won Dennis 1980 [id number] Date of Consult: 04/10/2025 Admission Date: 04/04/2025 [...] which prompted him to seek treatment at [facility]. He is known to Dr. Dean. [...] Jr., MD, 20 mg at 04/09/25906 heparin 65570 units/250 mL (100 units/mL) in 0.45 % NaCl infusion, 18 Units/kg/hr, Intravenous, Titrated, Una Perla, PharmD, Last Rate: 24.1 mL/hr at 04/10/253, 18 Units/kg/hr at 04/10/25 031 hydroCHLOROthiazide tablet 12.5 mg, 12.5 mg, Oral, Daily, Sushil Dean Jr., MD, 12.5 mg at 04/09/25 0906 HYDROmorphone (DILAUDID) injection 0.5 mg, 0.5 mg, Intravenous, Q2H PRN, Yeyo Arzoal III, DO, 0.5 mg at 04/10/25 0655 [...] Units Date/Time FL C Arm During Surgery [[id number]] Resulted: 04/07/252137 Updated: 04/07/252137 Narrative: This procedure was auto-finalized with no dictation required. MRI Tibia Fibula Right With & Without Contrast [[id number]] Collected: 04/07/25 0938 Updated: 04/07/25 1001 Narrative: [...] Chitra 04/07/2025 9:58 AM EDT Workstation ID: [id number] Impression: Recurrent Right BKA stump abscess/cellulitis- this [...] discussed his disposition with the pharmacist at [facility] today. I will sign off Outpatient orders: 1. Outpatient intravenous antibiotic therapy: Daptomycin 800 mg IV daily to be supplied by [facility] 2. Home health to perform weekly [...] Time: 04/10/251323 Signed Expand All Collapse All [facility] Medicine Services PROGRESS NOTE Patient Name: Won [...] Date/Time Wound Culture - Swab, Leg, Right [[id number]] (Abnormal) (Susceptibility) Collected: 04/07/252106 Lab Status: Final [...] Row Name 04/06/25 1143 Sit-Stand Transfer Sit-Stand [place] (Transfers) modified independence -LM Comment, (Sit-Stand Transfer) Pt stood from recliner. Not holding onto walker, pt able to pull his pants up while balancing on his one leg. -LM Row Name 04/06/25 1143 Gait/Stairs (Locomotion) [place] Level (Gait) modified independence -LM Distance in [...] Nurse Physical Therapy Education Title: PT OT SIGNAL PROCESSING ENGINEER Therapies (Done) Topic: Physical Therapy (Done) Point: [...] Description Service Date Service Provider Modifiers Qty [id number] PT EVAL LOW COMPLEXITY 3 04/06/2025 Susan [...] mg Daily 04/05/2025 -- Route: Oral heparin 39247 units/250 mL (100 units/mL) in 0.45 % [...] -- Admin Instructions: Open Order & Select [facility] Electrolyte Replacement Protocol Algorithm to View Details [...] Dean MD April 21 vs April 22 [facility] [address], [address] [facility], [address] Please schedule at [phone] VONDA Garcia 04/11/25 08:32 EDT Cosigned by Sushil Dean Jr., MD at 04/19/2025 10:33 AM EDT Associated attestation - Sushil Dean Jr., MD - 04/19/2025 10:33 AM EDT I have reviewed this documentation and agree. * Rosario Hill APRN - 04/10/2025 1:24 PM EDT Images from the original note were not included. [facility] Medicine Services PROGRESS NOTE Patient Name: Won [...] Date/Time Wound Culture - Swab, Leg, Right [[id number]] (Abnormal) (Susceptibility) Collected: 04/07/252106 Lab Status: Final [...] mg Daily 04/05/2025 -- Route: Oral heparin 53760 units/250 mL (100 units/mL) in 0.45 % [...] -- Admin Instructions: Open Order & Select [facility] Electrolyte Replacement Protocol Algorithm to View Details [...] -- Admin Instructions: Open Order & Select [facility] Electrolyte Replacement Protocol Algorithm to View Details [...] -- Admin Instructions: Open Order & Select [facility] Electrolyte Replacement Protocol Algorithm to View Details [...] Dean MD April 21 vs April 22 [facility] [address], [address] [facility], [address] Please schedule at [phone] VONDA Garcia 04/10/25 09:01 EDT Cosigned by Sushil Dean Jr., MD at 04/19/2025 10:33 AM EDT Associated attestation - Sushil Dean Jr., MD - 04/19/2025 10:33 AM EDT I have reviewed this documentation and agree. * Carlton Mead MD - 04/10/2025 7:38 AM EDT Images from the original note were not included. INFECTIOUS DISEASE Progress Note Won Dennis 1980 [id number] Date of Consult: 04/10/2025 Admission Date: 04/04/2025 [...] which prompted him to seek treatment at [facility]. He is known to Dr. Dean. [...] Right 04/07/2025 Procedure: LEG DEBRIDEMENT, IRRIGATION; Surgeon: Suhsil Dean Jr., MD; Location: [facility]; Service: [...] Jr., MD, 20 mg at 04/09/25906 heparin 39782 units/250 mL (100 units/mL) in 0.45 % [...] vancomycin 2750 mg/500 mL 0.9% NS IVPB ([facility]) Ordering Provider: Mario Crowley, DO 20 mg/kg [...] Units Date/Time FL C Arm During Surgery [[id number]] Resulted: 04/07/252137 Updated: 04/07/252137 Narrative: This procedure was auto-finalized with no dictation required. MRI Tibia Fibula Right With & Without Contrast [[id number]] Collected: 04/07/25 0938 Updated: 04/07/25 1001 Narrative: [...] Buenrostro 04/07/2025 9:58 AM EDT Workstation ID: [id number] Impression: Recurrent Right BKA stump abscess/cellulitis- this [...] discussed his disposition with the pharmacist at [facility] today. I will sign off Outpatient orders: 1. Outpatient intravenous antibiotic therapy: Daptomycin 800 mg IV daily to be supplied by [facility] 2. Home health to perform weekly [...] MD 04/10/2025 07:38 EDT * Yaya Hamiltonn, [facility] - 04/10/2025 7:17 AM EDT Pharmacy to [...] from the original note were not included. [facility] Medicine Services PROGRESS NOTE Patient Name: Won [...] Date/Time Wound Culture - Swab, Leg, Right [[id number]] (Abnormal) Collected: 04/07/252106 Lab Status: Preliminary result [...] Jason DO Preeti 04/09/25 * Larisa Hamilton [facility] - 04/09/2025 11:36 AM EDT Pharmacy to [...] mg Daily 04/05/2025 -- Route: Oral heparin 91046 units/250 mL (100 units/mL) in 0.45 % [...] -- Admin Instructions: Open Order & Select [facility] Electrolyte Replacement Protocol Algorithm to View Details [...] -- Admin Instructions: Open Order & Select [facility] Electrolyte Replacement Protocol Algorithm to View Details [...] -- Admin Instructions: Open Order & Select [facility] Electrolyte Replacement Protocol Algorithm to View Details [...] in 2 weeks for incision check, radiographs [facility] [address], [address] [facility], [address] Please schedule at [phone] VONDA Garcia 04/09/25 09:18 EDT Cosigned by Sushil Dean Jr., MD at 04/19/2025 10:33 AM EDT Associated attestation - Sushil Dean Jr., MD - 04/19/2025 10:33 AM EDT I have reviewed this documentation and agree. * Carlton Mead MD - 04/09/2025 8:25 AM EDT Images from the original note were not included. INFECTIOUS DISEASE Progress Note Won Dennis 1980 [id number] Date of Consult: 04/09/2025 Admission Date: 04/04/2025 [...] which prompted him to seek treatment at [facility]. He is known to Dr. Dean. [...] IRRIGATION; Surgeon: Sushil Dean Jr., MD; Location: [facility]; Service: Orthopedics; Laterality: Right; PLACEMENT OF WOUND VAC Right 04/07/2025 Procedure: WOUND VACUUM ASSISTED CLOSURE; Surgeon: Sushil Dean Jr., MD; Location: [facility]; Service: Orthopedics; Laterality: Right; History reviewed. [...] MD, 20 mg at 04/08/25 0800 heparin 50461 units/250 mL (100 units/mL) in 0.45 % [...] Units Date/Time FL C Arm During Surgery [[id number]] Resulted: 04/07/252137 Updated: 04/07/252137 Narrative: This procedure was auto-finalized with no dictation required. MRI Tibia Fibula Right With & Without Contrast [[id number]] Collected: 04/07/2538 Updated: 04/07/25 1001 Narrative: MRI [...] Buenrostro 04/07/2025 9:58 AM EDT Workstation ID: [id number] Impression: Recurrent Right BKA stump abscess/cellulitis- this [...] mg IV daily to be supplied by [facility] 2. Home health to perform [...] from the original note were not included. [facility] Medicine Services PROGRESS NOTE Patient Name: Won [...] Buenrostro 04/07/2025 9:58 AM EDT Workstation ID: [id number] I have personally reviewed the therapy plans: [...] Jason Álvarez DO 04/08/25 * Larisa Hamilton [facility] - 04/08/2025 11:48 AM EDT Pharmacy to [...] -- Admin Instructions: Open Order & Select [facility] Electrolyte Replacement Protocol Algorithm to View Details [...] mg Daily 04/05/2025 -- Route: Oral heparin 27105 units/250 mL (100 units/mL) in 0.45 % [...] -- Admin Instructions: Open Order & Select [facility] Electrolyte Replacement Protocol Algorithm to View Details [...] -- Admin Instructions: Open Order & Select [facility] Electrolyte Replacement Protocol Algorithm to View Details [...] -- Admin Instructions: Open Order & Select [facility] Electrolyte Replacement Protocol Algorithm to View Details [...] INFECTIOUS DISEASE Progress Note Won Dennis 1980 [id number] Date of Consult: 04/08/2025 Admission Date: 04/04/2025 [...] which prompted him to seek treatment at [facility]. He is known to Dr. Dean. [...] IRRIGATION; Surgeon: Sushil Dean Jr., MD; Location: [facility]; Service: Orthopedics; Laterality: Right; PLACEMENT OF WOUND VAC Right 04/07/2025 Procedure: WOUND VACUUM ASSISTED CLOSURE; Surgeon: Sushil Dean Jr., MD; Location: [facility]; Service: Orthopedics; Laterality: Right; History reviewed. [...] Jr., MD, 20 mg at 04/07/25950 heparin 65574 units/250 mL (100 units/mL) in 0.45 % [...] Units Date/Time FL C Arm During Surgery [[id number]] Resulted: 04/07/252137 Updated: 04/07/252137 Narrative: This procedure was auto-finalized with no dictation required. 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 (Treated by ID in [place] Dr. Harris). Dr. Torres treated him with [...] from the original note were not included. [facility] Medicine Services PROGRESS NOTE Patient Name: Won [...] Buenrostro 04/07/2025 9:58 AM EDT Workstation ID: [id number] I have personally reviewed the therapy plans: [...] Jason Álvarez DO 04/07/25 * Larisa Hamilton [facility] - 04/07/2025 11:56 AM EDT Pharmacy to [...] INFECTIOUS DISEASE Progress Note Won Dennis 1980 [id number] Date of Consult: 04/07/2025 Admission Date: 04/04/2025 [...] which prompted him to seek treatment at [facility]. He is known to Dr. Dean. [...] Application, 1 Application, Topical, Q12H, Ayah Valentin, LEAD CASE MANAGER, 1 Application at 04/06/252101 DAPTOmycin (CUBICIN) 800 [...] Shepherd MD, 20 mg at 04/06/25899 heparin 58795 units/250 mL (100 units/mL) in 0.45 % NaCl infusion, 18 Units/kg/hr, Intravenous, Titrated, Cherri Beatty, [facility], Last Rate: 24.1 mL/hr at 04/07/258, 18 [...] 0.4 mg, Sublingual, Q5 Min PRN, Leonora Shephedr MD ondansetron ODT (ZOFRAN-ODT) disintegrating tablet 4 [...] % 50 mL IVPB Ordering Provider: Carlton Meda MD 8 mg/kg ?? 98.8 kg (Adjusted) [...] With & Without Contrast - In process [[id number]] Resulted: 04/07/25828 Updated: 04/07/25828 This result has not been signed. Information might be incomplete. 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 (Treated by ID in [place] Dr. Harris). Dr. Torres treated him with [...] mg Daily 04/05/2025 -- Route: Oral heparin 31412 units/250 mL (100 units/mL) in 0.45 % [...] -- Admin Instructions: Open Order & Select [facility] Electrolyte Replacement Protocol Algorithm to View Details [...] -- Admin Instructions: Open Order & Select [facility] Electrolyte Replacement Protocol Algorithm to View Details [...] MD 04/07/25 06:07 EDT * Cherri Beatty [facility] - 04/06/2025 1:47 PM EDT Pharmacy to [...] New start -- [phone] RN Amry. Pt has Factor II mutation and needs [...] from the original note were not included. [facility] Medicine Services PROGRESS NOTE Patient Name: Won [...] MD 04/04/2025 11:00 PM EDT Workstation ID: [id number] I have personally reviewed the therapy plans: [...] mg Daily 04/05/2025 -- Route: Oral heparin 14644 units/250 mL (100 units/mL) in 0.45 % [...] -- Admin Instructions: Open Order & Select [facility] Electrolyte Replacement Protocol Algorithm to View Details [...] INFECTIOUS DISEASE follow up. Won Dennis 1980 [id number] Date of Consult: 04/06/2025 Admission Date: 04/04/2025 [...] which prompted him to seek treatment at [facility]. He is known to Dr. Dean. [...] cream 1 Application, 1 Application, Topical, Q12H, Ayha Valentin, LEAD CASE MANAGER, 1 Application at 04/06/25 0859 DAPTOmycin (CUBICIN) [...] MD, 20 mg at 04/06/25 0900 heparin 47257 units/250 mL (100 units/mL) in 0.45 % NaCl infusion, 18 Units/kg/hr, Intravenous, Titrated, Cherri Beatty [facility], Last Rate: 24.1 mL/hr at 04/06/25 1420, [...] % 50 mL IVPB Ordering Provider: Carlton Maed MD 8 mg/kg ?? 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 (Treated by ID in [place] Dr. Harris). Dr. Torres treated him with [...] MD 04/06/2025 16:00 EDT * Cherri Beatty, [facility] - 04/05/2025 3:01 PM EDT Pharmacy to [...] from the original note were not included. [facility] Medicine Services PROGRESS NOTE Patient Name: Won [...] MD 04/04/2025 11:00 PM EDT Workstation ID: [id number] I have personally reviewed the therapy plans: [...] from the original note were not included. [facility] Medicine Services HISTORY AND PHYSICAL Patient Name: [...] MD 04/04/2025 11:00 PM EDT Workstation ID: [id number] Assessment & Plan Assessment & Plan Won [...] date/ time has not been documented. Leonora Shephedr MD 04/04/25 documented in this encounter Consult Notes * Zelda Burns RN - 04/09/2025 1:10 PM EDTAssociated Order(s): IP CONSULT FOR PICC 4FR PICC placed by Rhoda Bonner RN [facility], tip verified by 3CG see LDA. * Sushil Dean Jr., MD - 04/05/2025 8:07 AM EDTAssociated Order(s): IP CONSULT TO ORTHOPEDIC SURGERY [facility], [facility] [address] [place] [address] Orthopedic Consult Patient: Won Dennis Date of Admission: 04/04/2025 4:10 PM Date of : 1980 Attending Physician: Jason Álvarez DO Consulting Physician: Sushil Dean Jr, MD Chief Complaint: 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 male admitted to [facility] with 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]. [...] was evaluated in the emergency department in [place], was discharged with instructions for follow-up. He [...] tablet by mouth Daily. 04/03/2025 Morning Lactobacillus-Inulin ([facility]) capsule Take 200 mg by mouth Daily. [...] MD 04/04/2025 11:00 PM EDT Workstation ID: [id number] Assessment: Right BKA infection 44-year-old male with [...] DISEASE CONSULT/INITIAL HOSPITAL VISIT Won Dennis 1980 [id number] Date of Consult: 04/05/2025 Admission Date: 04/04/2025 [...] which prompted him to seek treatment at [facility]. He is known to Dr. Dean. [...] Leonora Shepherd MD, 40 mg at 04/04/25 1819 sennosides-docusate (PERICOLACE) 8.6-50 MG per tablet 2 [...] MD, 20 mg at 04/05/25 0916 heparin 19886 units/250 mL (100 units/mL) in 0.45 % [...] NaCl (Premix) 500 mL Ordering Provider: Una ePrla, Jasbir 1,500 mg 333.3 mL/hr over 90 [...] Tibia Fibula Right With & Without Contrast [[id number]] Collected: 04/04/252256 Updated: 04/04/252302 Narrative: MRI TIBIA [...] represent a small area of phlegmonous change (swjimd10 image 10) measuring approximately 1.6 cm which [...] MD 04/04/2025 11:00 PM EDT Workstation ID: [id number] Impression: 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 (Treated by ID in [place] Dr. Harris). Dr. Torres treated him with [...] Review/Management: medications reviewed Taken 04/08/20251942 by Bob Rosenbegr RN Sensory Stimulation Regulation: auditory stimulation minimized [...] Jr., MD - 04/08/2025 3:51 PM EDT [facility] OPERATIVE REPORT PATIENT NAME: Won Dennis DATE OF : 1980 PREOP DIAGNOSIS: Right Right below-knee amputation infection POSTOP DIAGNOSIS: Same. PROCEDURE: Right Right 75018: Secondary closure below-knee amputation SURGEON: Sushil Dean MD OPERATIVE TEAM: Cytometry Technologist: Susi Grullon RN Scrub Person: Mary Paredes Scrub Person Extra: Hortencia Toribio Other: Katt Gotti RN; Charis Neville RN ANESTHETIST: Anesthesiologist: Ulises Hoffman MD EMERGENCY SERVICE RESTORER: Stan Casillas CRNA Student Nurse Program Lead: Karol Albert SRNA ANESTHESIA: Choice ESTIMATED [...] CULTURE (Canceled) Sushil Dean Jr., MD 04/08/25 5825 Description: RIGHT LEG DEEP WOUND FOR CULTURE [...] Jr., MD - 04/07/2025 9:03 PM EDT [facility] [address] [address] OPERATIVE REPORT PATIENT NAME: Won Dennis DATE OF : 1980 PREOP DIAGNOSIS: Right Right below knee amputation stump infection POSTOP DIAGNOSIS: Same. PROCEDURE: Right Right 93669: Incision and drainage of surgical site infection 59031: Debridement of skin, subcutaneous tissue, muscle 20163: Wound vacuum-assisted closure SURGEON: Sushil Dean MD OPERATIVE TEAM: Cytometry Technologist: Anum Sanchez RN Scrub Person: Hortencia Toribio; Gerald Ivey CORPORATE INTERN: Anesthesiologist: Luci Alonso DO ANESTHESIA: General ESTIMATED [...] ago swellling of the area. seen at [facility] yesterday for CT and US, here [...] this chart in the absence of a hazmat cdl a driver. No orders to display RADIOLOGY: [x] Radiologist's [...] 04/11/2025 1:30 PM EDT Continued Stay Note [place] Patient Name: Won Dennis Today's Date: 04/11/2025 Admit Date: 04/04/2025 Plan: Home with outpatient infusion. Discharge Plan Row Name 04/11/25 1155 Plan Plan Home with outpatient infusion. Final Discharge Disposition Code 01 - home or self-care Final Note Patient discharging today. He is discharging home with outpatient infusion at [facility]. He has an appointment with [facility] at 8:00 am tomorrow. They will do PICC line dressing changes. DEBRA has spoke with Dena at [facility] today multiple times to get setup due [...] to get IV ABX at home with [facility]; however, Medicaid lapsed on 04/08. DEBRA was unaware until this morning that Medicaid has lapsed. Patient explained that he has Medicare A and B. CM spoke with KELLEE and given themhis Medicare number [id number], she sent it to Admission. DEBRA spoke with Kerri, with [facility], and explained that he had Medicare A and B. However, it will not cover home infusion. It will be $64.00 a day out of packet. Patients can go to the Infusion center at [facility], and it will cover the cost as an outpatient. He will need to go there every day for infusion. They will be able to do the patients' PICC line dressing changes and lab work. CM called [facility] infusion center they can accept patient and start him. He is known for their facility. The Facility will need to run it through his insurance first. CM faxed the orders over to [facility] at [phone]. CM will follow up with them tomorrow at [facility] to make sure they received the [...] with patient at bedside today. [facility] Patient getting PICC line [...] note were not included. Discharge Planning Assessment [place] Patient Name: Won Dennis Today's Date: 04/07/2025 [...] with family Patient/Family Anticipated Services at Transition family preservation caseworkerbranch rental manager Anticipated family or friend will provide Discharge Needs Assessment Equipment Currently Used at Home glucometer;shower chair;pulse ox;bp cuff;prosthesis;crutches Equipment Needed After Discharge none Discharge Plan Row Name 04/07/25 1144 Plan Plan Home Patient/Family in Agreement with Plan yes Plan Comments CM spoke with patient at bedside today. Patient lives with and his 5 kids in [facility]. 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 He has walker, cane, shower chair, and crutches. He requested a wheelchair for home. CM will order wheelchair through [employer]. He is not current with home health services. PCP is Dr. Jordan. Insurance is [facility] Medicaid [place]. Patient discharge plan is home with priavte transport. CM will follow for any discharge needs. Final Discharge Disposition Code 01 - home or self-care Continued Care and Services - Admitted Since 04/04/2025 No active coordination exists. Demographic Summary Row Name 04/07/25 1143 General Information Arrived From hospital Preferred Language Belizean Functional Status Row Name 04/07/25 1143 Functional [...] 3:4 0 PM EDT Right BKA infection ID SEC ABDOMINAL WALL SUTURE EVISCERATION/DEHSN 04/08/2025 3:20 [...] CBC Auto Differential (04/11/2025 3:40 AM EDT) [facility] WBC 7.87 3.40 - 10.80 10*3/mm3 04/11/2025 4:02 AM EDT [facility] RBC 4.70 4.14 - 5.80 10*6/mm3 04/11/2025 4:02 AM EDT [facility] Hemoglobin 12.8(L) 13.0 - 17.7 g/dL 04/11/2025 4:02 AM EDT [facility] Hematocrit 40.5 37.5 - 51.0 % 04/11/2025 4:02 AM EDT [facility] MCV 86.2 79.0 - 97.0 fL 04/11/2025 4:02 AM EDT [facility] MCH 27.2 26.6 - 33.0 pg 04/11/2025 4:02 AM EDT [facility] MCHC 31.6 31.5 - 35.7 g/dL 04/11/2025 4:02 AM EDT [facility] RDW 12.9 12.3 - 15.4 % 04/11/2025 4:02 AM EDT [facility] RDW-SD 40.5 37.0 - 54.0 fl 04/11/2025 4:02 AM EDT [facility] MPV 9.2 6.0 - 12.0 fL 04/11/2025 4:02 AM EDT [facility] Platelets 267 140 - 450 [...] AM EDT 04/11/2025 3:59 AM EDT us Sushli Dean Jr., MD LAB BLOOD ORDERABLES Fi nal Result [facility]
[address] [place] [address], * (ABNORMAL) Comprehensive Metabolic Panel (04/11/2025 3:40 AM EDT) Glucose 108(H) 65 - 99 mg/dL 04/11/2025 4:19 AM EDT [facility] BUN 12.5 6.0 - 20.0 mg/dL 04/11/2025 4:19 AM EDT [facility] Creatinine 0.68(L) 0.76 - 1.27 mg/dL 04/11/2025 4:19 AM EDT [facility] Sodium 140 136 - 145 mmol/L 04/11/2025 4:19 AM EDT [facility] Potassium 3.8 3.5 - 5.2 mmol/L 04/11/2025 4:19 AM EDT [facility] Chloride 105 98 - 107 mmol/L 04/11/2025 4:19 AM EDT [facility] CO2 28.2 22.0 - 29.0 mmol/L 04/11/2025 4:19 AM EDT [facility] Calcium 8.2(L) 8.6 - 10.5 mg/dL 04/11/2025 4:19 AM EDT [facility] Total Protein 6.1 6.0 - 8.5 g/dL 04/11/2025 4:19 AM EDT [facility] Albumin 3.1(L) 3.5 - 5.2 g/dL 04/11/2025 4:19 AM EDT [facility] ALT (SGPT) 52(H) 1 - 41 U/L 04/11/2025 4:19 AM EDT [facility] AST (SGOT) 40 1 - 40 U/L 04/11/2025 4:19 AM EDT [facility] Alkaline Phosphatase 99 39 - 117 U/L 04/11/2025 4:19 AM EDT [facility] Total Bilirubin 0.2 0.0 - 1.2 mg/dL 04/11/2025 4:19 AM EDT [facility] Globulin 3.0 gm/dL 04/11/2025 4:19 AM EDT [facility] Comment:Calculated Result A/G Ratio 1.0 g/dL 04/11/2025 4:19 AM EDT [facility] BUN/Creatinine Ratio 18.4 7.0 - 25.0 04/11/2025 4:19 AM EDT [facility] Anion Gap 6.8 5.0 - 15.0 mmol/L 04/11/2025 4:19 AM EDT [facility] eGFR 117.5 >60.0 mL/min/1.7 3 04/11/2025 4:19 AM EDT [facility] Blood Venipuncture / Unknown 04/11/2025 3:40 AM EDT 04/11/2025 3:56 AM EDT [facility] - 04/11/2025 4:19 AM EDT GFR [...] Hill APRN LAB BLOOD ORDERABLES Final Result [facility]
[address] [place] [address], * (ABNORMAL) CBC Auto Differential (04/10/2025 3:46 AM EDT) [facility] WBC 9.60 3.40 - 10.80 10*3/mm3 04/10/2025 3:56 AM EDT [facility] RBC 4.67 4.14 - 5.80 10*6/mm3 04/10/2025 3:[facility] Hemoglobin 12.9(L) 13.0 - 17.7 g/dL 04/10/2025 3:56 AM EDT [facility] Hematocrit 40.1 37.5 - 51.0 % 04/10/2025 3:56 [facility] MCV 85.9 79.0 - 97.0 fL 04/10/2025 3:56 [facility] MCH 27.6 26.6 - 33.0 pg 04/10/2025 3:56 AM [facility] MCHC 32.2 31.5 - 35.7 g/dL 04/10/2025 3:56 [facility] RDW 12.9 12.3 - 15.4 % 04/10/2025 3:56 AM [facility] RDW-SD 40.5 37.0 - 54.0 fl 04/10/2025 3:56 AM [facility] MPV 9.5 6.0 - 12.0 fL 04/10/2025 3:56 AM [facility] Platelets 227 140 - 450 10*3/mm3 04/10/2025 3:56 AM EDT [facility] Neutrophil % 59.1 42.7 - 76.0 % 04/10/2025 3:56 AM [facility] Lymphocyte % 29.0 19.6 - 45.3 % 04/10/2025 3:56 AM [facility] Monocyte % 8.1 5.0 - 12.0 % 04/10/2025 3:56 AM [facility] Eosinophil % 3.2 0.3 - 6.2 % 04/10/2025 3:56 AM EDT [facility] Basophil % 0.4 0.0 - 1.5 % 04/10/2025 3:56 AM EDT [facility] Immature Grans % 0.2 0.0 - 0.5 % 04/10/2025 3:56 AM EDT [facility] Neutrophils, Absolute 5.67 1.70 - 7.00 10*3/mm3 04/10/2025 3:56 AM EDT [facility] Lymphocytes, Absolute 2.78 0.70 - 3.10 10*3/mm3 04/10/2025 3:56 AM EDT [facility] Monocytes, Absolute 0.78 0.10 - 0.90 10*3/mm3 04/10/2025 3:56 AM EDT [facility] Eosinophils, Absolute 0.31 0.00 - 0.40 10*3/mm3 04/10/2025 3:56 AM EDT [facility] Basophils, Absolute 0.04 0.00 - 0.20 10*3/mm3 04/10/2025 3:56 AM EDT [facility] Immature Grans, Absolute 0.02 0.00 - 0.05 10*3/mm3 04/10/2025 3:56 AM EDT [facility] nRBC 0.0 0.0 - 0.2 /100 WBC 04/10/2025 3:56 AM EDT [facility] Blood Venipuncture / Unknown 04/10/2025 3:46 AM EDT 04/10/2025 3:53 AM EDT Jason Álvarez DO LAB BLOOD ORDERABLES Final Resul t [facility]
[address] [place] [address], * (ABNORMAL) Basic Metabolic Panel (04/10/2025 3:46 AM EDT) [facility] Glucose 125(H) 65 - 99 mg/dL 04/10/2025 4:20 AM EDT [facility] BUN 15.9 6.0 - 20.0 mg/dL 04/10/2025 4:20 AM T [facility] Creatinine 0.77 0.76 - 1.27 mg/dL 04/10/2025 4:20 AM T [facility] Sodium 137 136 - 145 mmol/L 04/10/2025 4:20 AM [facility] Potassium 3.9 3.5 - 5.2 mmol/L 04/10/2025 4:20 AM EDT [facility] Chloride 102 98 - 107 mmol/L 04/10/2025 4:20 AM EDT [facility] CO2 26.9 22.0 - 29.0 [...] 3:46 AM EDT 04/10/2025 3:52 AM EDT [facility] - 04/10/2025 4:20 AM EDT GFR [...] DO LAB BLOOD ORDERABLES Final Resul t [facility]
[address] [place] [address], * Heparin Anti-Xa (04/10/2025 3:46 AM EDT) Heparin Anti-Xa (UFH) 0.35 0.30 - 0.70 IU/ml 04/10/2025 4:23 AM EDT [facility] Blood Venipuncture / Unknown 04/10/2025 3:46 AM EDT 04/10/2025 3:53 AM EDT [facility] LAB BLOOD ORDERABLES Final R esult Performing Organization Address City/[facility]/ZIP Co de Phone Number [facility]
[address] [place] [address], * Heparin Anti-Xa (04/09/2025 10:05 AM EDT) Heparin Anti-Xa (UFH) 0.36 0.30 - 0.70 IU/ml 04/09/2025 11:12 AM EDT [facility] Blood Venipuncture / Unknown 04/09/2025 10:05 AM EDT 04/09/2025 10:47 AM EDT [facility] LAB BLOOD ORDERABLES Final R esult [facility]
[address] [place] [address], * (ABNORMAL) CBC Auto Differential (04/09/2025 4:18 AM EDT) WBC 11.00(H) 3.40 - 10.80 10*3/mm3 04/09/2025 4:50 AM [facility] RBC 4.70 4.14 - 5.80 10*6/mm3 04/09/2025 4:50 AM EDT [facility] Hemoglobin 13.0 13.0 - 17.7 g/dL 04/09/2025 4:50 AM EDT [facility] Hematocrit 40.4 37.5 - 51.0 % 04/09/2025 4:50 AM EDT [facility] MCV 86.0 79.0 - 97.0 fL 04/09/2025 4:50 AM EDT [facility] MCH 27.7 26.6 - 33.0 pg 04/09/2025 4:50 [facility] MCHC 32.2 31.5 - 35.7 g/dL 04/09/2025 4:50 AM [facility] RDW 12.8 12.3 - 15.4 % 04/09/2025 4:50 AM [facility] RDW-SD 39.9 37.0 - 54.0 fl 04/09/2025 4:50 AM [facility] MPV 10.0 6.0 - 12.0 fL 04/09/2025 4:50 AM [facility] Platelets 211 140 - 450 10*3/mm3 04/09/2025 4:50 AM [facility] Neutrophil % 74.8 42.7 - 76.0 % 04/09/2025 4:50 AM EDT [facility] Lymphocyte % 15.4(L) 19.6 - 45.3 % 04/09/2025 4:50 AM EDT [facility] Monocyte % 8.5 5.0 - 12.0 % 04/09/2025 4:50 AM EDT [facility] Eosinophil % 0.6 0.3 - 6.2 % 04/09/2025 4:50 AM [facility] Basophil % 0.4 0.0 - 1.5 % 04/09/2025 4:50 AM EDT [facility] Immature Grans % 0.3 0.0 - 0.5 % 04/09/2025 4:50 AM EDT [facility] Neutrophils, Absolute 8.23(H) 1.70 - 7.00 10*3/mm3 04/09/2025 4:50 AM EDT [facility] Lymphocytes, Absolute 1.69 0.70 - 3.10 10*3/mm3 04/09/2025 4:50 AM EDT [facility] Monocytes, Absolute 0.94(H) 0.10 - 0.90 10*3/mm3 04/09/2025 4:50 AM EDT [facility] Eosinophils, Absolute 0.07 0.00 - 0.40 10*3/mm3 04/09/2025 4:50 AM EDT [facility] Basophils, Absolute 0.04 0.00 - 0.20 10*3/mm3 04/09/2025 4:50 AM EDT [facility] Immature Grans, Absolute 0.03 0.00 - 0.05 10*3/mm3 04/09/2025 4:50 AM EDT [facility] nRBC 0.0 0.0 - 0.2 /100 WBC 04/09/2025 4:50 AM EDT [facility] Blood Venipuncture / Unknown 04/09/2025 4:18 AM EDT 04/09/2025 4:31 AM EDT Sushil Dean Jr., MD LAB BLOOD ORDERABLES Fi nal Result [facility]
[address] [place] [address], * Heparin Anti-Xa (04/09/2025 4:18 AM EDT) Heparin Anti-Xa (UFH) 0.41 0.30 - 0.70 IU/ml 04/09/2025 4:53 AM EDT [facility] Blood Venipuncture / Unknown 04/09/2025 4:18 AM EDT 04/09/2025 4:31 AM EDT Una Wheeleroy PharmD LAB BLOOD ORDERABLES Final R esult [facility]
[address] [place] [address], * (ABNORMAL) Basic Metabolic Panel (04/09/2025 4:18 AM EDT) [facility] Glucose 147(H) 65 - 99 mg/dL 04/09/2025 5:33 AM EDT [facility] BUN 23.0(H) 6.0 - 20.0 mg/dL 04/09/2025 5:33 AM EDT [facility] Creatinine 1.15 0.76 - 1.27 mg/dL 04/09/2025 5:33 AM EDT [facility] Sodium 135(L) 136 - 145 mmol/L 04/09/2025 5:33 AM EDT [facility] Potassium 4.2 3.5 - 5.2 mmol/L 04/09/2025 5:33 AM EDT [facility] Chloride 100 98 - 107 mmol/L 04/09/2025 5:33 AM EDT [facility] CO2 26.0 22.0 - 29.0 mmol/L 04/09/2025 5:33 AM EDT [facility] Calcium 8.2(L) 8.6 - 10.5 mg/dL 04/09/2025 5:33 AM EDT [facility] BUN/Creatinine Ratio 20.0 7.0 - 25.0 04/09/2025 5:33 AM EDT [facility] Anion Gap 9.0 5.0 - 15.0 mmol/L 04/09/2025 5:33 AM EDT [facility] eGFR 80.5 >60.0 mL/min/1.7 3 04/09/2025 5:33 AM EDT [facility] Blood Venipuncture / Unknown 04/09/2025 4:18 AM EDT 04/09/2025 4:29 AM EDT Narrative [facility] - 04/09/2025 5:33 AM EDT [...] ORDERABLES Fi nal Result Performing Organization Address [facility] Co de Phone Number [facility]
[address] [place] [address], * Wound Culture - Swab, Leg, Right (04/08/2025 3:40 PM EDT) Wound Culture No growth at 3 days ALIZA 04/11/2025 10:40 AM EDT [facility] Gram Stain Few (2+) WBCs seen 04/11/2025 10:40 AM EDT [facility] Gram Stain No organisms seen 04/11/2025 10:40 AM EDT [facility] Swab Structure of right lower limb / Unknown 04/08/2025 3:40 PM EDT 04/08/2025 8:05 PM EDT Sushil Dean Jr., MD MICROBIOLOGY - GENERAL ORDERABLES Final Result Performing Organization Address City/[facility]/ZIP Co de Phone Number [facility]
[address] [place] [id number], [facility]
[address] [place] [address], * Anaerobic Culture - Swab, Leg, Right (04/08/2025 3:40 PM EDT) [facility] Anaerobic Culture No anaerobes isolated at 5 days ALIZA 04/13/2025 7:24 AM EDT [facility] Swab Structure of right lower limb / Unknown 04/08/2025 3:40 PM EDT 04/08/2025 8:05 PM EDT Sushil Dean Jr., MD MICROBIOLOGY - GENERAL ORDERABLES Final Result Performing Organization Address City/[facility] Co de Phone Number [facility]
[address] [place] [address], [place] [phone] * Scan Slide (04/08/2025 8:41 AM EDT) [facility] RBC Morphology Normal Normal 04/08/2025 11:02 AM EDT [facility] WBC Morphology Normal Normal 04/08/2025 11:02 AM EDT [facility] Platelet Estimate Adequate Normal 04/08/2025 11:02 AM EDT [facility] Clumped Platelets Present None Seen 04/08/2025 11:02 AM EDT [facility] Blood Venipuncture / Unknown 04/08/2025 8:41 AM EDT 04/08/2025 9:10 AM EDT Una LundbergD LAB BLOOD ORDERABLES Final R esult Performing Organization Address City/[facility]/ZIP Co de Phone Number [facility]
[address] [place] [address], [place] [phone] * (ABNORMAL) CBC Auto Differential (04/08/2025 8:41 AM EDT) [facility] WBC 10.07 3.40 - 10.80 10*3/mm3 04/08/2025 11:02 AM EDT [facility] RBC 5.01 4.14 - 5.80 10*6/mm3 04/08/2025 11:02 AM EDT [facility] Hemoglobin 14.0 13.0 - 17.7 [...] - 7.00 10*3/mm3 04/08/2025 11:02 AM EDT [facility] Lymphocytes, Absolute 0.94 0.70 - 3.10 10*3/mm3 04/08/2025 11:02 AM EDT [facility] Monocytes, Absolute 0.46 0.10 - 0.90 10*3/mm3 04/08/2025 11:02 AM EDT [facility] Eosinophils, Absolute 0.03 0.00 - 0.40 10*3/mm3 04/08/2025 11:02 AM EDT [facility] Basophils, Absolute 0.02 0.00 - 0.20 10*3/mm3 04/08/2025 11:02 AM EDT [facility] Immature Grans, Absolute 0.05 0.00 - 0.05 10*3/mm3 04/08/2025 11:02 AM EDT [facility] nRBC 0.0 0.0 - 0.2 /100 WBC 04/08/2025 11:02 AM EDT [facility] Blood Venipuncture / Unknown 04/08/2025 8:41 AM EDT 04/08/2025 9:10 AM EDT Una Perla PharmD LAB BLOOD ORDERABLES Final R esult [facility]
[address] [place] [address], * (ABNORMAL) Basic Metabolic Panel (04/08/2025 8:41 AM EDT) Glucose 125(H) 65 - 99 mg/dL 04/08/2025 9:51 AM EDT [facility] BUN 13.2 6.0 - 20.0 mg/dL 04/08/2025 9:51 AM EDT [facility] Creatinine 0.69(L) 0.76 - 1.27 mg/dL 04/08/2025 9:51 AM EDT [facility] Sodium 136 136 - 145 mmol/L 04/08/2025 9:51 AM EDT [facility] Potassium 4.6 3.5 - 5.2 mmol/L 04/08/2025 9:51 AM EDT [facility] Chloride 102 98 - 107 mmol/L 04/08/2025 9:51 AM EDT [facility] CO2 23.5 22.0 - 29.0 mmol/L 04/08/2025 9:51 AM EDT [facility] Calcium 8.4(L) 8.6 - 10.5 mg/dL 04/08/2025 9:51 AM EDT [facility] BUN/Creatinine Ratio 19.1 7.0 - 25.0 04/08/2025 9:51 AM EDT [facility] Anion Gap 10.5 5.0 - 15.0 mmol/L 04/08/2025 9:51 AM EDT [facility] eGFR 117.0 >60.0 mL/min/1.7 3 04/08/2025 9:51 AM EDT [facility] Blood Venipuncture / Unknown 04/08/2025 8:41 AM EDT 04/08/2025 9:09 AM EDT [facility] - 04/08/2025 9:51 AM EDT GFR [...] Jr., MD LAB BLOOD ORDERABLES nal Result [facility]
[address] [place] [address], * Heparin Anti-Xa (04/08/2025 8:41 AM EDT) Heparin Anti-Xa (UFH) 0.33 0.30 - 0.70 IU/ml 04/08/2025 9:40 AM EDT [facility] Blood Venipuncture / Unknown 04/08/2025 8:41 AM EDT 04/08/2025 9:10 AM EDT Sushil Dean Jr., MD LAB BLOOD ORDERABLES Fi nal Result [facility]
[address] [place] [address], * FL C Arm During Surgery (04/07/2025 9:32 PM EDT) Narrative SYSTEMGENERATED, DOCUMENTATION - 04/07/2025 9:38 PM EDT This procedure was auto-finalized with no dictation required. Sushil Dean Jr., MD IMG FLUOROSCOPY ORDERAB LES Final Result * Wound Culture - Swab, Leg, Right (04/07/2025 9:14 PM EDT) Wound Culture No growth at 3 days ALIZA 04/11/2025 10:40 AM EDT [facility] Gram Stain Occasional WBCs seen 04/11/2025 10:40 AM EDT [facility] Gram Stain No organisms seen 04/11/2025 10:40 AM EDT [facility] Swab Structure of right lower limb / Unknown Collection / Unknown 04/07/2025 9:14 PM EDT 04/08/2025 4:36 AM EDT Sushil Dean Jr., MD MICROBIOLOGY - GENERAL ORDERABLES Final Result [facility]
[address] [place] [address], [facility]
[address] [place] [address], * Anaerobic Culture - Swab, Leg, Right (04/07/2025 9:14 PM EDT) Anaerobic Culture No anaerobes isolated at 5 days ALIZA 04/13/2025 7:21 AM EDT [facility] Swab Structure of right lower limb / Unknown Collection / Unknown 04/07/2025 9:14 PM EDT 04/08/2025 4:36 AM EDT Sushil Dean Jr., MD MICROBIOLOGY - GENERAL ORDERABLES Final Result Performing Organization Address City/[facility]/ZIP Co de Phone Number [facility]
[address] [place] [address], * Anaerobic Culture - Tissue, Leg (04/07/2025 9:13 PM EDT) Anaerobic Culture No anaerobes isolated at 5 days ALIZA 04/13/2025 7:21 AM EDT [facility] Tissue Lower limb structure / Unknown Collection / Unknown 04/07/2025 9:13 PM EDT 04/08/2025 4:54 AM EDT Jason Álvarez DO MICROBIOLOGY - GENERAL ORDERABLE S Final Result [facility]
[address] [place] [address], * Tissue / Bone Culture - Tissue, Leg, Right (04/07/2025 9:13 PM EDT) Tissue Culture No growth at 3 days ALIZA 04/11/2025 10:36 AM EDT [facility] Gram Stain Rare (1+) WBCs seen 04/11/2025 10:36 AM EDT [facility] Gram Stain No organisms seen 04/11/2025 10:36 AM EDT [facility] Tissue Structure of right lower limb / Unknown 04/07/2025 9:13 PM EDT 04/08/2025 4:54 AM EDT Sushil Dean Jr., MD MICROBIOLOGY - GENERAL ORDERABLES Final Result Performing Organization Address City/[facility]/ZIP Co de Phone Number [facility]
[address] [place] [address], [place] [phone] [facility]
[address] [place] [address], [place] [phone] * (ABNORMAL) Wound Culture - Swab, Leg, Right (04/07/2025 9:07 PM EDT) Wound Culture Light growth (2+) Staphylococcus aureus, MRSA(A) ALIZA 04/10/2025 10:38 AM EDT [facility] Comment: Methicillin resistant Staphylococcus aureus, Patient may be an isolation risk. Gram Stain Few (2+) WBCs seen 04/10/2025 10:38 AM EDT [facility] Gram Stain No organisms seen 10:38 AM EDT [facility] Swab Structure of right lower [...] MD MICROBIOLOGY - GENERAL ORDERABLES Final Result [facility]
[address] [place] [address], [facility]
[address] [place] [address], * Anaerobic Culture - Swab, Leg, Right (04/07/2025 9:07 PM EDT) Pathologist [facility] Anaerobic Culture No anaerobes isolated at 5 days ALIZA 04/13/2025 7:21 AM EDT [facility] Swab Structure of right lower limb / Unknown Collection / Unknown 04/07/2025 9:07 PM EDT 04/08/2025 4:36 AM EDT Sushil Dean Jr., MD MICROBIOLOGY - GENERAL ORDERABLES Final Result Performing Organization Address [facility] Co de Phone Number [facility]
[address] [place] [address], * Heparin Anti-Xa (04/07/2025 9:10 AM EDT) [facility] Heparin Anti-Xa ([facility]) 0.30 0.30 - 0.70 IU/ml 04/07/2025 10:12 AM EDT [facility] Blood Venipuncture / Unknown 04/07/2025 9:10 AM EDT 04/07/2025 9:38 AM EDT Una LundbergD LAB BLOOD ORDERABLES Final R esult Performing Organization Address City/[facility]/ZIP Co de Phone Number [facility]
[address] [place] [address], * (ABNORMAL) CBC Auto Differential (04/07/2025 9:10 AM EDT) Pathologist [facility] WBC 8.63 3.40 - 10.80 10*3/mm3 04/07/2025 9:50 AM EDT [facility] RBC 5.23 4.14 - 5.80 10*6/mm3 04/07/[facility]25 [facility] Hemoglobin 14.7 13.0 - 17.7 g/dL 04/07/2025 9:50 [facility] Hematocrit 44.8 37.5 - 51.0 % 04/07/2025 9:50 [facility] MCV 85.7 79.0 - 97.0 fL 04/07/2025 9:50 AM EDT [facility] MCH 28.1 26.6 - 33.0 pg 04/07/2025 9:50 [facility] MCHC 32.8 31.5 - 35.7 g/dL 04/07/2025 9:50 [facility] RDW 12.8 12.3 - 15.4 % 04/07/2025 9:50 AM [facility] RDW-SD 39.9 37.0 - 54.0 fl 04/07/2025 9:50 AM [facility] [facility] MPV 10.8 6.0 - 12.0 fL 04/07/2025 9:50 AM [facility] Platelets 149 140 - 450 10*3/mm3 04/07/2025 9:[facility] Neutrophil % 66.7 42.7 - 76.0 % 04/07/2025 9:50 AM [facility] Lymphocyte % 20.5 19.6 - 45.3 % 04/07/2025 9:50 AM EDT [facility] Monocyte % 9.8 5.0 - 12.0 % 04/07/2025 9:50 [facility] Eosinophil % 2.1 0.3 - 6.2 % 04/07/2025 9:50 AM [facility] Basophil % 0.3 0.0 - 1.5 % 04/07/2025 9:50 AM [facility] Immature Grans % 0.6(H) 0.0 - 0.5 % 04/07/2025 9:50 AM EDT [facility] Neutrophils, Absolute 5.75 1.70 - 7.00 10*3/mm3 04/07/2025 9:50 AM EDT [facility] Lymphocytes, Absolute 1.77 0.70 - 3.10 10*3/mm3 04/07/2025 9:50 AM EDT [facility] Monocytes, Absolute 0.85 0.10 - 0.90 10*3/mm3 04/07/2025 9:50 AM EDT [facility] Eosinophils, Absolute 0.18 0.00 - 0.40 10*3/mm3 04/07/2025 9:50 AM EDT [facility] Basophils, Absolute 0.03 0.00 - 0.20 10*3/mm3 04/07/2025 9:50 AM EDT [facility] Immature Grans, Absolute 0.05 0.00 - 0.05 10*3/mm3 04/07/2025 9:50 AM EDT [facility] nRBC 0.0 0.0 - 0.2 /100 WBC 04/07/2025 9:50 AM EDT [facility] Blood Venipuncture / Unknown 04/07/2025 9:10 AM EDT 04/07/2025 9:38 AM EDT us Jason Álvarez DO LAB BLOOD ORDERABLES Final Resul t [facility]
[address] [place] [address], * (ABNORMAL) Basic Metabolic Panel (04/07/2025 9:10 AM EDT) Glucose 112(H) 65 - 99 mg/dL 04/07/2025 10:19 AM EDT [facility] BUN 13.1 6.0 - 20.0 mg/dL 04/07/2025 10:19 AM EDT [facility] Creatinine 0.77 0.76 - 1.27 mg/dL 04/07/2025 10:19 AM EDT [facility] Sodium 139 136 - 145 mmol/L 04/07/2025 10:19 AM EDT [facility] Potassium 4.2 3.5 - 5.2 mmol/L 04/07/2025 10:19 AM EDT [facility] Comment:Specimen hemolyzed. Result may be falsely elevated. Chloride 105 98 - 107 mmol/L 04/07/2025 10:19 AM EDT [facility] CO2 24.8 22.0 - 29.0 mmol/L 04/07/2025 10:19 AM EDT [facility] Calcium 8.6 8.6 - 10.5 mg/dL 04/07/2025 10:19 AM T [facility] BUN/Creatinine Ratio 17.0 7.0 - 25.0 04/07/2025 10:19 AM EDT [facility] Anion Gap 9.2 5.0 - 15.0 mmol/L 04/07/2025 10:19 AM T [facility] eGFR 113.2 >60.0 mL/min/1.7 3 04/07/2025 10:19 AM T [facility] Blood Venipuncture / Unknown 04/07/2025 9:10 AM EDT 04/07/2025 9:38 AM EDT Narrative [facility] - 04/07/2025 10:19 AM EDT [...] DO LAB BLOOD ORDERABLES Final Resul t [facility]
[address] [place] [address], * MRI Tibia Fibula Right With & [...] [place] 04/07/2025 9:58 AM EDT Workstation ID: [id number] Narrative 04/07/2025 9:58 AM EDT MRI TIBIA [...] [place] 04/07/2025 9:58 AM EDT Workstation ID: [id number] us Sushil Dean Jr., MD [facility] MRI ORDERABLES Mary Beth l Result * Heparin Anti-Xa (04/07/2025 1:42 AM EDT) Heparin Anti-Xa (UFH) 0.38 0.30 - 0.70 IU/ml 04/07/2025 2:14 AM EDT [facility] Blood Venipuncture / Unknown 04/07/2025 1:42 AM EDT 04/07/2025 1:54 AM EDT Chelsie Navarretesapna [facility] LAB BLOOD ORDERABLES Final R esult Performing Organization Address City/[facility]/ZIP Co de Phone Number [facility]
[address] [place] [address], * Heparin Anti-Xa (04/06/2025 7:16 PM EDT) Pathologist [facility] Heparin Anti-Xa (UFH) 0.33 0.30 - 0.70 IU/ml 04/06/2025 7:50 PM EDT [facility] Blood Venipuncture / Unknown 04/06/2025 7:16 PM EDT 04/06/2025 7:35 PM EDT Cherri Beatty [facility] LAB BLOOD ORDERABLES Final Res ult Performing Organization Address City/[facility] Co de Phone Number [facility]
[address] [place] [address], * Potassium (04/06/2025 7:16 PM EDT) Pathologist [facility] Potassium 4.0 3.5 - 5.2 mmol/L 04/06/2025 7:53 PM EDT [facility] Blood Venipuncture / Unknown 04/06/2025 7:16 PM EDT 04/06/2025 7:35 PM EDT Jason Álvarez DO LAB BLOOD ORDERABLES Final Resul t Performing Organization Address City/[facility]/ZIP Co de Phone Number [facility]
[address] [place] [address], * (ABNORMAL) Heparin Anti-Xa (04/06/2025 12:36 PM EDT) Heparin Anti-Xa (UFH) 0.24(L) 0.30 - 0.70 IU/ml 04/06/2025 1:23 PM EDT [facility] Blood Venipuncture / Unknown 04/06/2025 12:36 PM EDT 04/06/2025 1:07 PM EDT Una LundbergD LAB BLOOD ORDERABLES Final R esult [facility]
[address] [place] [address], * (ABNORMAL) Heparin Anti-Xa (04/06/2025 3:42 AM EDT) [facility] Heparin Anti-Xa (UFH) 0.25(L) 0.30 - 0.70 IU/ml 04/06/2025 5:30 AM EDT [facility] Blood Venipuncture / Unknown 04/06/2025 3:42 AM EDT 04/06/2025 4:59 AM EDT Chelsie Turpin [facility] LAB BLOOD ORDERABLES Final R esult [facility]
[address] [place] [address], * (ABNORMAL) Basic Metabolic Panel (04/06/2025 3:42 AM EDT) [facility] Glucose 94 65 - 99 mg/dL 04/06/2025 5:59 AM EDT [facility] BUN 12.8 6.0 - 20.0 mg/dL 04/06/2025 5:59 AM EDT [facility] Creatinine 0.80 0.76 - 1.27 mg/dL 04/06/2025 5:59 AM EDT [facility] Sodium 138 136 - 145 mmol/L 04/06/2025 5:59 AM EDT [facility] Potassium 3.6 3.5 - 5.2 mmol/L 04/06/2025 5:59 AM EDT [facility] Chloride 103 98 - 107 mmol/L 04/06/2025 5:59 AM EDT [facility] CO2 24.2 22.0 - 29.0 mmol/L 04/06/2025 5:59 AM EDT [facility] Calcium 8.0(L) 8.6 - 10.5 mg/dL 04/06/2025 5:59 AM EDT [facility] BUN/Creatinine Ratio 16.0 7.0 - 25.0 04/06/2025 5:59 AM EDT [facility] Anion Gap 10.8 5.0 - 15.0 mmol/L 04/06/2025 5:59 AM EDT [facility] eGFR 111.9 >60.0 mL/min/1.7 3 04/06/2025 5:59 AM EDT [facility] Blood Venipuncture / Unknown 04/06/2025 3:42 AM EDT 04/06/2025 5:20 AM EDT Narrative [facility] - 04/06/2025 5:59 AM EDT [...] DO LAB BLOOD ORDERABLES Final Resul t [facility]
[address] [place] [address], * (ABNORMAL) CBC Auto Differential (04/06/2025 3:41 AM EDT) WBC 10.86(H) 3.40 - 10.80 10*3/mm3 04/06/2025 5:04 AM EDT [facility] RBC 5.08 4.14 - 5.80 10*6/mm3 04/06/2025 5:04 AM EDT [facility] Hemoglobin 13.9 13.0 - 17.7 g/dL 04/06/2025 5:04 AM EDT [facility] Hematocrit 43.7 37.5 - 51.0 % 04/06/2025 5:04 AM EDT [facility] MCV 86.0 79.0 - 97.0 fL 04/06/2025 5:04 AM EDT [facility] MCH 27.4 26.6 - 33.0 pg 04/06/2025 5:04 AM EDT [facility] MCHC 31.8 31.5 - 35.7 g/dL 04/06/2025 5:04 AM EDT [facility] RDW 12.8 12.3 - 15.4 % 04/06/2025 5:04 AM EDT [facility] RDW-SD 40.0 37.0 - 54.0 fl 04/06/2025 5:04 AM EDT [facility] MPV 11.7 6.0 - 12.0 fL 04/06/2025 5:04 AM EDT [facility] Platelets 115(L) 140 - 450 10*3/mm3 04/06/2025 5:04 AM EDT [facility] Neutrophil % 65.3 42.7 - 76.0 % 04/06/2025 5:04 AM EDT [facility] Lymphocyte % 20.5 19.6 - 45.3 % 04/06/2025 5:04 AM EDT [facility] Monocyte % 11.8 5.0 - 12.0 % 04/06/2025 5:04 AM EDT [facility] Eosinophil % 1.8 0.3 - 6.2 % 04/06/2025 5:04 AM EDT [facility] Basophil % 0.3 0.0 - 1.5 % 04/06/2025 5:04 AM EDT [facility] Immature Grans % 0.3 0.0 - 0.5 % 04/06/2025 5:04 AM EDT [facility] Neutrophils, Absolute 7.09(H) 1.70 - 7.00 10*3/mm3 04/06/2025 5:04 AM EDT [facility] Lymphocytes, Absolute 2.23 0.70 - 3.10 10*3/mm3 04/06/2025 5:04 AM EDT [facility] Monocytes, Absolute 1.28(H) 0.10 - 0.90 10*3/mm3 04/06/2025 5:04 AM EDT [facility] Eosinophils, Absolute 0.20 0.00 - 0.40 10*3/mm3 04/06/2025 5:04 AM EDT [facility] Basophils, Absolute 0.03 0.00 - 0.20 10*3/mm3 04/06/2025 5:04 AM EDT [facility] Immature Grans, Absolute 0.03 0.00 - 0.05 10*3/mm3 04/06/2025 5:04 AM EDT [facility] nRBC 0.0 0.0 - 0.2 /100 WBC 04/06/2025 5:04 AM EDT [facility] Blood Venipuncture / Unknown 04/06/2025 3:41 AM EDT 04/06/2025 4:58 AM EDT us Jason Álvarez DO LAB BLOOD ORDERABLES Final Resul t [facility]
[address] [place] [address], * Heparin Anti-Xa (04/05/2025 8:43 PM EDT) Heparin Anti-Xa (UFH) 0.38 0.30 - 0.70 IU/ml 04/05/2025 9:09 PM EDT [facility] Blood Venipuncture / Unknown 04/05/2025 8:43 PM EDT 04/05/2025 8:55 PM EDT Cherri Beatty [facility] LAB BLOOD ORDERABLES Final Res ult Performing Organization Address [facility] Co de Phone Number [facility]
[address] [place] [address], * CK (04/05/2025 12:15 PM EDT) Creatine Kinase 140 20 - 200 U/L 04/05/2025 1:31 PM EDT [facility] Blood Venipuncture / Unknown 04/05/2025 12:15 PM EDT 04/05/2025 1:03 PM EDT Carlton Mead MD LAB BLOOD ORDERABLES Final R esult Performing Organization Address [facility] Co de Phone Number [facility]
[address] [place] [address], [place] [phone] * (ABNORMAL) Heparin Anti-Xa (04/05/2025 12:15 PM EDT) Heparin Anti-Xa (UFH) 0.17(L) 0.30 - 0.70 IU/ml 04/05/2025 1:21 PM EDT [facility] Blood Venipuncture / Unknown 04/05/2025 12:15 PM EDT 04/05/2025 1:04 PM EDT Una LundbergD LAB BLOOD ORDERABLES Final R esult Performing Organization Address City/[facility]/ZIP Co de Phone Number [facility]
[address] [place] [address], * (ABNORMAL) aPTT (04/05/2025 3:54 AM EDT) [facility] PTT 35.3(L) 60.0 - 90.0 seconds 04/05/2025 4:31 AM EDT [facility] Blood Venipuncture / Unknown 04/05/2025 3:54 AM EDT 04/05/2025 4:15 AM EDT Narrative [facility] - 04/05/2025 4:31 AM EDT PTT = The equivalent PTT values for the therapeutic range of heparin levels at 0.3 to 0.5 U/ml are 60 to 70 seconds. Una Perla NomiD LAB BLOOD ORDERABLES Final R esult Performing Organization Address [facility] Co de Phone Number [facility]
[address] [place] [address], * Heparin Anti-Xa (04/05/2025 3:54 AM EDT) [facility] Heparin Anti-Xa (UFH) 0.30 0.30 - 0.70 IU/ml 04/05/2025 4:32 AM EDT [facility] Blood Venipuncture / Unknown 04/05/2025 3:54 AM EDT 04/05/2025 4:15 AM EDT [employer] LAB BLOOD ORDERABLES Final R esult Performing Organization Address City/[facility] Co de Phone Number [facility]
[address] [place] [address], * (ABNORMAL) CBC Auto Differential (04/05/2025 3:54 AM EDT) [facility] WBC 11.18(H) 3.40 - 10.80 10*3/mm3 04/05/2025 4:20 AM EDT [facility] RBC 5.00 4.14 - 5.80 10*6/mm3 04/05/2025 4:20 AM EDT [facility] Hemoglobin 13.9 13.0 - 17.7 g/dL 04/05/2025 4:20 AM EDT [facility] Hematocrit 42.4 37.5 - 51.0 % 04/05/2025 4:20 AM EDT [facility] MCV 84.8 79.0 - 97.0 fL 04/05/2025 4:20 AM EDT [facility] MCH 27.8 26.6 - 33.0 pg 04/05/2025 4:20 [facility] MCHC 32.8 31.5 - [...] 42.7 - 76.0 % 04/05/2025 4:20 AM [facility] Lymphocyte % 14.0(L) 19.6 - 45.3 % 04/05/2025 4:20 AM EDT [facility] Monocyte % 11.0 5.0 - 12.0 % 04/05/2025 4:20 AM [facility] Eosinophil % 0.8 0.3 - 6.2 % 04/05/2025 4:20 AM [facility] Basophil % 0.3 0.0 - 1.5 % 04/05/2025 4:20 AM EDT [facility] Immature Grans % 0.4 0.0 - 0.5 % 04/05/2025 4:20 AM EDT [facility] Neutrophils, Absolute 8.23(H) 1.70 - 7.00 10*3/mm3 04/05/2025 4:20 AM EDT [facility] Lymphocytes, Absolute 1.56 0.70 - 3.10 10*3/mm3 04/05/2025 4:20 AM EDT [facility] Monocytes, Absolute 1.23(H) 0.10 - 0.90 10*3/mm3 04/05/2025 4:20 AM EDT [facility] Eosinophils, Absolute 0.09 0.00 - 0.40 10*3/mm3 04/05/2025 4:20 AM EDT [facility] Basophils, Absolute 0.03 0.00 - 0.20 10*3/mm3 04/05/2025 4:20 AM EDT [facility] Immature Grans, Absolute 0.04 0.00 - 0.05 10*3/mm3 04/05/2025 4:20 AM EDT [facility] nRBC 0.0 0.0 - 0.2 /100 WBC 04/05/2025 4:20 AM EDT [facility] Blood Venipuncture / Unknown 04/05/2025 3:54 AM EDT 04/05/2025 4:16 AM EDT Una Perla PharmD LAB BLOOD ORDERABLES Final R esult [facility]
[address] [place] [address], * (ABNORMAL) Basic Metabolic Panel (04/05/2025 3:54 AM EDT) [facility] Signature Glucose 152(H) 65 - 99 mg/dL 04/05/2025 4:40 AM EDT [facility] BUN 17.3 6.0 - 20.0 mg/dL 04/05/2025 4:40 AM T [facility] Creatinine 0.92 0.76 - 1.27 mg/dL 04/05/2025 4:40 AM EDT [facility] Sodium 136 136 - 145 mmol/L 04/05/2025 4:40 AM EDT [facility] Potassium 3.9 3.5 - 5.2 mmol/L 04/05/2025 4:40 AM EDT [facility] Chloride 103 98 - 107 mmol/L 04/05/2025 4:40 AM EDT [facility] CO2 24.0 22.0 - 29.0 mmol/L 04/05/2025 4:40 AM T [facility] Calcium 7.8(L) 8.6 - 10.5 mg/dL 04/05/2025 4:40 AM [facility] BUN/Creatinine Ratio 18.8 7.0 - 25.0 04/05/2025 4:40 AM T [facility] Anion Gap 9.0 5.0 - 15.0 mmol/L 04/05/2025 4:40 AM [facility] eGFR 105.2 >60.0 mL/min/1.7 3 04/05/2025 4:40 AM [facility] Blood Venipuncture / Unknown 04/05/2025 3:54 AM EDT 04/05/2025 4:15 AM EDT [facility] - 04/05/2025 4:40 AM EDT GFR [...] ORDERABLES Final Re sult Performing Organization Address [facility] Co de Phone Number [facility]
[address] [place] [address], * (ABNORMAL) aPTT (04/05/2025 12:18 AM EDT) PTT 33.6(L) 60.0 - 90.0 seconds 04/05/2025 12:53 AM EDT [facility] Blood Venipuncture / Unknown 04/05/2025 12:18 AM EDT 04/05/2025 12:37 AM EDT Narrative [facility] - 04/05/2025 12:53 AM EDT PTT = The equivalent PTT values for the therapeutic range of heparin levels at 0.3 to 0.5 U/ml are 60 to 70 seconds. Una Perla PharmD LAB BLOOD ORDERABLES Final R esult Performing Organization Address [facility] Co de Phone Number [facility]
[address] [place] [address], [place] [phone] * (ABNORMAL) Protime-INR (04/05/2025 12:18 AM EDT) Protime 15.9(H) 12.2 - 15.3 Seconds 04/05/2025 12:53 AM EDT [facility] INR 1.19(H) 0.89 - 1.12 04/05/2025 12:53 AM EDT [facility] Blood Venipuncture / Unknown 04/05/2025 12:18 AM EDT 04/05/2025 12:37 AM EDT Una Perla PharmD LAB BLOOD ORDERABLES Final R esult Performing Organization Address City/[facility] Co de Phone Number [facility]
[address] [place] [address], [place] [phone] * Heparin Anti-Xa (04/05/2025 12:18 AM EDT) Heparin Anti-Xa (UFH) 0.39 0.30 - 0.70 IU/ml 04/05/2025 12:54 AM EDT [facility] Blood Venipuncture / Unknown 04/05/2025 12:18 AM EDT 04/05/2025 12:37 AM EDT Una Perla PharmD LAB BLOOD ORDERABLES Final R esult [facility]
[address] [place] [address], * MRI Tibia Fibula Right With & [...] MD 04/04/2025 11:00 PM EDT Workstation ID: [id number] Narrative 04/04/2025 11:00 PM EDT MRI TIBIA [...] MD 04/04/2025 11:00 PM EDT Workstation ID: [id number] us Leonora Shepherd MD IMG MRI ORDERABLES Final Resu lt * POC Creatinine (04/04/2025 2:49 PM EDT) [facility] Creatinine 1.10 0.60 - 1.30 mg/dL 04/07/2025 7:14 PM EDT [facility] Comment:Serial Number: [id number]: [id number] Venous Blood 04/04/2025 2:49 PM EDT 04/07/2025 7:14 PM EDT Jason Álvarez DO POINT OF CARE TEST ORDERABLES Fi nal Result [facility]
[address] [place] [address], * (ABNORMAL) CBC Auto Differential (04/04/2025 2:47 PM EDT) [facility] WBC 12.72(H) 3.40 - 10.80 10*3/mm3 04/04/2025 2:56 PM EDT [facility] RBC 5.64 4.14 - 5.80 10*6/mm3 04/04/2025 2:56 PM EDT [facility] Hemoglobin 15.3 13.0 - 17.7 g/dL 04/04/2025 2:56 PM EDT [facility] Hematocrit 47.9 37.5 - 51.0 % 04/04/2025 2:56 PM EDT [facility] MCV 84.9 79.0 - 97.0 fL 04/04/2025 2:56 PM EDT [facility] MCH 27.1 26.6 - 33.0 pg 04/04/2025 2:56 PM EDT [facility] MCHC 31.9 31.5 - 35.7 g/dL 04/04/2025 2:56 PM EDT [facility] RDW 13.1 12.3 - 15.4 % 04/04/2025 2:[facility] RDW-SD 40.3 37.0 - 54.0 fl 04/04/2025 2:56 PM EDT [facility] MPV 9.4 6.0 - 12.0 fL 04/04/2025 2:56 PM EDT [facility] Platelets 232 140 - 450 10*3/mm3 04/04/2025 2:56 PM EDT [facility] Neutrophil % 74.9 42.7 - 76.0 % 04/04/2025 2:56 PM EDT [facility] Lymphocyte % 13.1(L) 19.6 - 45.3 % 04/04/2025 2:56 PM [facility] Monocyte % 11.2 5.0 - 12.0 % 04/04/2025 2:56 PM [facility] Eosinophil % 0.4 0.3 - 6.2 % 04/04/2025 2:56 PM EDT [facility] Basophil % 0.2 0.0 - 1.5 % 04/04/2025 2:56 PM [facility] Immature Grans % 0.2 0.0 - 0.5 % 04/04/2025 2:56 PM [facility] Neutrophils, Absolute 9.52(H) 1.70 - 7.00 10*3/mm3 04/04/2025 2:56 PM [facility] Lymphocytes, Absolute 1.66 0.70 - 3.10 10*3/mm3 04/04/2025 2:56 PM EDT [facility] Monocytes, Absolute 1.43(H) 0.10 - 0.90 10*3/mm3 04/04/2025 2:56 PM EDT [facility] Eosinophils, Absolute 0.05 0.00 - 0.40 10*3/mm3 04/04/2025 2:56 PM [facility] Basophils, Absolute 0.03 0.00 - 0.20 10*3/mm3 04/04/2025 2:56 PM EDT [facility] Immature Grans, Absolute 0.03 0.00 - 0.05 10*3/mm3 04/04/2025 2:56 PM EDT [facility] nRBC 0.0 0.0 - 0.2 /100 WBC 04/04/2025 2:56 PM EDT [facility] Blood Venipuncture / Unknown 04/04/2025 2:47 PM EDT 04/04/2025 2:52 PM EDT Mario Ortiz GhanshyamComeet LAB BLOOD ORDERABLES Fin al Result Performing Organization Address City/[facility]/ZIP Co de Phone Number [facility]
[address] [place] [address], * (ABNORMAL) C-reactive Protein (04/04/2025 2:47 PM EDT) C-Reactive Protein 8.57(H) 0.00 - 0.50 mg/dL 04/04/2025 3:26 PM EDT [facility] Blood Venipuncture / Unknown 04/04/2025 2:47 PM EDT 04/04/2025 2:52 PM EDT Mario Ortiz [facility] LAB BLOOD ORDERABLES Fin al Result Performing Organization Address [facility] de Phone Number [facility]
[address] [place] [address], * (ABNORMAL) Sedimentation Rate (04/04/2025 2:47 PM EDT) Sed Rate 51(H) 0 - 15 mm/hr 04/04/2025 3:06 PM EDT [facility] Blood Venipuncture / Unknown 04/04/2025 2:47 PM EDT 04/04/2025 2:52 PM EDT [facility] Ortiz [facility] Fin al Result Performing Organization Address City/[facility]/ZIP Co de Phone Number [facility]
[address] [place] [address], * Comprehensive Metabolic Panel (04/04/2025 2:47 PM EDT) [facility] Glucose 90 65 - 99 mg/dL 04/04/2025 3:26 PM EDT [facility] BUN 18.3 6.0 - 20.0 mg/dL 04/04/2025 3:26 PM EDT [facility] Creatinine 0.94 0.76 - 1.27 mg/dL 04/04/2025 3:26 PM EDT [facility] Sodium 136 136 - 145 mmol/L 04/04/2025 3:26 PM EDT [facility] Potassium 3.8 3.5 - 5.2 mmol/L 04/04/2025 3:26 PM EDT [facility] Chloride 100 98 - 107 mmol/L 04/04/2025 3:26 PM EDT [facility] CO2 25.3 22.0 - 29.0 mmol/L 04/04/2025 3:26 PM EDT [facility] Calcium 8.6 8.6 - 10.5 mg/dL 04/04/2025 3:26 PM EDT [facility] Total Protein 7.3 6.0 - 8.5 g/dL 04/04/2025 3:26 PM EDT [facility] Albumin 4.1 3.5 - 5.2 g/dL 04/04/2025 3:26 PM EDT [facility] ALT (SGPT) 26 1 - 41 U/L 04/04/2025 3:26 PM EDT [facility] AST (SGOT) 25 1 - 40 U/L 04/04/2025 3:26 PM EDT [facility] Alkaline Phosphatase 106 39 - 117 U/L 04/04/2025 3:26 PM EDT [facility] Total Bilirubin 1.0 0.0 - 1.2 mg/dL 04/04/2025 3:26 PM EDT [facility] Globulin 3.2 gm/dL 04/04/2025 3:26 PM EDT [facility] Comment:Calculated Result A/G Ratio 1.3 g/dL 04/04/2025 3:26 PM EDT [facility] BUN/Creatinine Ratio 19.5 7.0 - 25.0 04/04/2025 3:26 PM EDT [facility] Anion Gap 10.7 5.0 - 15.0 mmol/L 04/04/2025 3:26 PM EDT [facility] eGFR 102.5 >60.0 mL/min/1.7 3 04/04/2025 3:26 PM EDT [facility] Blood Venipuncture / Unknown 04/04/2025 2:47 PM EDT 04/04/2025 2:52 PM EDT Narrative [facility] - 04/04/2025 3:26 PM EDT [...] DO LAB BLOOD ORDERABLES Fin al Result [facility]
[address] [place] [address], documented in this encounter Visit Diagnoses Diagnosis [...] 04/05/2025 3:33 PM EDT 2,000 Units heparin 68780 units/250 mL (100 units/mL) in 0.45 % [...] BPA Driven Protocol Open Order & [facility] Electrolyte Replacement Protocol Algorithm to View Details [...] BPA Driven Protocol Open Order & [facility] Electrolyte Replacement Protocol Algorithm to View Details [...] disposal. 0831 (Given - Provider: Amber Salazar, FORM CARPENTER)194 (Given - Provider: Anahy Marcelino, FORM CARPENTER)2129 (Canceled Entry - Provider: Anahy Marcelino RRT [...] Continuous Medication Order 04/09/2025 04/10/2025 04/11/2025 heparin 00681 units/250 mL (100 units/mL) in 0.45 % [...] BPA Driven Protocol Open Order & [facility] Electrolyte Replacement Protocol Algorithm to View Details [...] BPA Driven Protocol Open Order & [facility] Electrolyte Replacement Protocol Algorithm to View Details [...] documented as of this encounter Care Teams Communication Equipment Mechanic Relationship Specialty Start Date End Date Provider, [place] [address] PCP - General 05/09/23 [id number] [phone]
--- OUTSIDE RECORDS SUMMARY | 2025-04-07 17:00 | XMS_ITS | Encounter Summary ---
[facility] Address [address] [place] [address] Care Team Providers Care Ore Crushing Dust Collector Name Role Phone Provider, No Known Primary Care Provider Unavail able Reason for Visit * Reason Comments Leg Swelling * Auth/Cert Specialty Diagnoses / Procedures Referred By Contac t Referred To Contact Diagnoses Right BKA infection Referral ID Status Reason Start Date Expiration Date Visits Re quested Visits Authorized [id number] 1 1 Encounter Details Date Type Department Care Team (Late st Contact Info) Description 04/07/2025 6:00 PM EDT - 04/07/2025 6:52 PM EDT Surgery [facility] OR [address] [place] [address] Sushil Dean Jr., MD [address] [place] [address] [address] [id number] LEG DEBRIDEMENT, IRRIGATION Social History Tobacco Use Types Packs/Day Years Used Date Smoking Tobacco: Never Smokeless Tobacco: Never Tobacco Cessation:Counseling Given: Not Answered Alcohol Use Standard Drinks/Week Comments Not Currently 0 (1 standard drink = 0.6 oz pur e alcohol) [facility] Utilities Answer Date Recorded In the past 12 months has [employer] electric, gas, oil, or water company threatened [...] or training? Not on file Preferred Language Solomon Islander 04/07/2025 Sex and Gender Information Value [...] 2:25 PM EDT Cherri Grimm RN * [place] Suicide Severity Rating Scale (Screener/Recent Self-Report) Question [...] from the original note were not included. [facility] Medicine Services DISCHARGE SUMMARY Patient Name: [...] Date/Time Wound Culture - Swab, Leg, Right [[id number]] (Abnormal) (Susceptibility) Collected: 04/07/252106 Lab Status: Final [...] Units Date/Time FL C Arm During Surgery [[id number]] Resulted: 04/07/252137 Updated: 04/07/252137 Narrative: This procedure was auto-finalized with no dictation required. MRI Tibia Fibula Right With & Without Contrast [[id number]] Collected: 04/07/25 0938 Updated: 04/07/25 1001 Narrative: [...] Buenrostro 04/07/2025 9:58 AM EDT Workstation ID: [id number] MRI Tibia Fibula Right With & Without Contrast [[id number]] Collected: 04/04/252256 Updated: 04/04/252302 Narrative: MRI TIBIA [...] represent a small area of phlegmonous change (snixcn85 image 10) measuring approximately 1.6 cm which [...] MD 04/04/2025 11:00 PM EDT Workstation ID: [id number] Pending Labs Order Current Status Fungus Culture [...] Male) Date of 1980 Social Security Number [id number] [place] [address] [place] [address] Sikh Unknown Marital Status Unknown Admission Date 04/04/2025 Admission Type Emergency Admitting Provider Jadyn Richardson DO Attending Provider Jadyn Richardson DO Department, Room/Bed [facility] 5G, S565/1 Discharge Date Discharge Disposition Discharge Destination Attending Provider: Jadyn Richardson DO Allergies: Ceftin [Cefuroxime], Keflex [Cephalexin], Latex Isolation: None Infection: MRSA (05/11/23) Code Status: CPR Ht: 180.3 cm (71 ) Wt: 134 kg (295 lb) Admission Cmt: None 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 Insurance as of 04/04/2025 Primary Coverage Payor Plan Insurance Group Employer/Plan Group [place] [id number] Payor Plan Address Payor Plan Phone Number Payor Plan Fax Number Effective Dates [employer] [address] [address] 08/10/2023 - None Entered [facility] [address] Subscriber Name Subscriber Date Member ID WON DENNIS 1980 [id number] Emergency Contacts Automotive Glass Specialist (Rel.) Home Phone Work Phone Mobile Phone Avril Dennis (Spouse) -- -- [phone] Robert Hackett (Relative) -- -- [phone] [facility] 5G [address] [facility] [address] Patient: ROOM: [facility] Won Dennis [address] [place] [address] : 1980 SSN: [id number] Sex: M PCP: Provider, No Known Emergency Contact Information Name Relation Home Work Mobile Avril Dennis Spouse [phone] Other Contacts Name Relation Home Work Mobile Robert Hackett Relative [phone] INSURANCE PAYOR PLAN GROUP # SUBSCRIBER ID Primary: Secondary: MEDICARE [place] [id number] Admitting Diagnosis: 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 He is known to Dr. [...] Right 04/08/2025 Procedure: WOUND CLOSURE DELAYED; Surgeon: Sushli Dean Jr., MD; Location: [facility] OR; Service:Orthopedics; [...] Jr., MD, 20 mg at 04/09/25906 heparin 39551 units/250 mL (100 units/mL) in 0.45 % [...] vancomycin 2750 mg/500 mL 0.9% NS IVPB ([facility]) Ordering Provider: Mario Crowley, DO [...] Units Date/Time FL C Arm During Surgery [[id number]] Resulted: 04/07/252137 Updated: 04/07/252137 Narrative: This procedure was auto-finalized with no dictation required. MRI Tibia Fibula Right With & Without Contrast [[id number]] Collected: 04/07/2538 Updated: 04/07/25 1001 Narrative: MRI [...] Buenrostro 04/07/2025 9:58 AM EDT Workstation ID: [id number] Impression: Recurrent Right BKA stump abscess/cellulitis- this [...] discussed his disposition with the pharmacist at [facility] today. I will sign off Outpatient orders: 1. Outpatient intravenous antibiotic therapy: Daptomycin 800 mg IV daily to be supplied by [facility] 2. Home health to perform [...] 04/10/251323 Creation Time: 04/10/251323 Signed Expand All [facility] Medicine Services PROGRESS NOTE Patient Name: [...] Date/Time Wound Culture - Swab, Leg, Right [[id number]] (Abnormal) (Susceptibility) Collected: 04/07/252106 Lab Status: Final [...] Row Name 04/06/25 1143 Sit-Stand Transfer Sit-Stand Ward (Transfers) modified independence - Comment, (Sit-Stand Transfer) Pt stood from recliner. Not holding onto walker, pt able to pull his pants up while balancing on his one leg. -LM Row Name 04/06/25 1143 Gait/Stairs (Locomotion) Ward Level (Gait) modified independence - Distance in [...] Motion bilateral lower extremity ROM WFL -LM [facility] Name 04/06/25 1145 Strength Comprehensive (MMT) General Manual Muscle Testing (MMT) Assessment no strength deficits identified BLEs -LM [facility] Name 04/06/25 1145 Balance Balance [...] Physical Therapist Goals/Plan No documentation. Clinical Impression [facility] 04/06/25 1146 Pain Pretreatment Pain Rating 0/10 - no pain -LM Posttreatment Pain Rating 0/10 - no pain -LM [facility] 04/06/25 1146 Plan of Care Review Plan of Care Reviewed With patient -LM Outcome Evaluation PT evaluation completed. Pt demonstrated independence with all mobility including ambulating 100 feet using rw - no unsteadiness noted. Pt reports he feels at baseline and doesn't think he needs skilled PT while here. Recommend home at d/c. PT signing off. -LM [facility] Name 04/06/25 1146 Therapy Assessment/Plan (PT) Criteria for Skilled Interventions Met (PT) no;no problems identified which require skilled intervention -LM Therapy Frequency (PT) evaluation only -LM Predicted Duration of Therapy Intervention (PT) Eval Only -LM [facility] Name 04/06/25 1146 Vital Signs Pretreatment Heart Rate (beats/min) 86 -LM Posttreatment Heart Rate (beats/min) 96 -LM Pre SpO2 (%) 95 -LM O2 Delivery Pre Treatment room air -LM Post SpO2 (%) 96 -LM O2 Delivery Post Treatment room air -LM Pre Patient Position Sitting -LM Post Patient Position Sitting -LM [facility] Name 04/06/25 1146 Positioning and [...] Nurse Physical Therapy Education Title: PT OT MANAGER DEPARTMENT Therapies (Done) Topic: Physical Therapy (Done) Point: Mobility training (Done) Learning Progress Summary Patient Acceptance, E, VU,DU by at 04/06/2025 1147 Point: Precautions (Done) Learning Progress Summary Patient Acceptance, E, VU,DU by at 04/06/2025 1147 User Cabrera Initials Effective Dates Name Provider Type [facility] 01/24/25 - Susan Cavazos, PT Physical [...] Description Service Date Service Provider Modifiers Qty [id number] PT EVAL LOW COMPLEXITY 3 04/06/2025 Susan [...] mg Daily 04/05/2025 -- Route: Oral heparin 42497 units/250 mL (100 units/mL) in 0.45 % [...] MD April 21 vs April 22 [facility] [address], [address] [facility], [address] Please schedule at [phone] VONDA Garcia 04/11/25 08:32 EDT Cosigned by Sushil Dean Jr., MD at 04/19/2025 10:33 AM EDT Associated attestation - Sushil Dean Jr., MD - 04/19/2025 10:33 AM EDT I have reviewed this documentation and agree. * Rosario Hill APRN - 04/10/2025 1:24 PM EDT Images from the original note were not included. [facility] Medicine Services PROGRESS NOTE Patient Name: [...] Date/Time Wound Culture - Swab, Leg, Right [[id number]] (Abnormal) (Susceptibility) Collected: 04/07/252106 Lab Status: Final [...] mg Daily 04/05/2025 -- Route: Oral heparin 30406 units/250 mL (100 units/mL) in 0.45 % [...] MD April 21 vs April 22 [facility] [address] [facility], [address] [facility], [address] Please schedule at [phone] VONDA Garcia 04/10/25 09:01 EDT Cosigned by Sushil Dean Jr., MD at 04/19/2025 10:33 AM EDT Associated attestation - Sushil Dean Jr., MD - 04/19/2025 10:33 AM EDT I have reviewed this documentation and agree. * Carlton Mead MD - 04/10/2025 7:38 AM EDT Images from the original note were not included. INFECTIOUS DISEASE Progress Note Won Dennis 1980 [id number] Date of Consult: 04/10/2025 Admission Date: 04/04/2025 [...] which prompted him to seek treatment at [facility]. He is known to Dr. [...] IRRIGATION; Surgeon: Sushil Dean Jr., MD; Location: [facility] OR; Service: Orthopedics; Laterality: Right; PLACEMENT OF WOUND VAC Right 04/07/2025 Procedure: WOUND VACUUM ASSISTED CLOSURE; Surgeon: Sushil Dean Jr., MD; Location: [facility] OR; Service: Orthopedics; Laterality: Right; WOUND CLOSURE [...] tablet 20 mg, 20 mg, Oral, Daily, Susihl Dean Jr., MD, 20 mg at 04/09/25906 heparin 00765 units/250 mL (100 units/mL) in 0.45 % [...] Units Date/Time FL C Arm During Surgery [[id number]] Resulted: 04/07/252137 Updated: 04/07/252137 Narrative: This procedure was auto-finalized with no dictation required. MRI Tibia Fibula Right With & Without Contrast [[id number]] Collected: 04/07/25937 Updated: 04/07/25 100 Narrative: MRI [...] Buenrostro 04/07/2025 9:58 AM EDT Workstation ID: [id number] Impression: Recurrent Right BKA stump abscess/cellulitis- this [...] discussed his disposition with the pharmacist at [facility] today. I will sign off Outpatient orders: 1. Outpatient intravenous antibiotic therapy: Daptomycin 800 mg IV daily to be supplied by [facility] 2. Home health to perform [...] MD 04/10/2025 07:38 EDT * Larisa Hamilton [facility] - 04/10/2025 7:17 AM [...] from the original note were not included. [facility] Medicine Services PROGRESS NOTE Patient Name: [...] Date/Time Wound Culture - Swab, Leg, Right [[id number]] (Abnormal) Collected: 04/07/252106 Lab Status: Preliminary result [...] Jason Álvarez DO 04/09/25 * Larisa Hamilton [facility] [...] -- Admin Instructions: Open Order & Select [facility] Electrolyte Replacement Protocol Algorithm to [...] mg Daily 04/05/2025 -- Route: Oral heparin 08776 units/250 mL (100 units/mL) in 0.45 % [...] -- Admin Instructions: Open Order & Select [facility] Electrolyte Replacement Protocol Algorithm to [...] 2 weeks for incision check, radiographs [facility] [address], [address] [facility], [address] Please schedule at [phone] VONDA Garcia 04/09/25 09:18 EDT Cosigned by Sushil Dean Jr., MD at 04/19/2025 10:33 AM EDT Associated attestation - Sushil Dean Jr., MD - 04/19/2025 10:33 AM EDT I have reviewed this documentation and agree. * Carlton Mead MD - 04/09/2025 8:25 AM EDT Images from the original note were not included. INFECTIOUS DISEASE Progress Note Won Dennis 1980 [id number] Date of Consult: 04/09/2025 Admission Date: 04/04/2025 [...] which prompted him to seek treatment at [facility]. He is known to Dr. [...] Jr., MD; Location: [facility]; Service: Orthopedics; Laterality: Right; PLACEMENT OF WOUND VAC Right 04/07/2025 Procedure: WOUND VACUUM ASSISTED CLOSURE; Surgeon: Sushil Dean Jr., MD; Location: [facility] OR; Service: Orthopedics; Laterality: Right; History [...] MD, 20 mg at 04/08/25 0800 heparin 34838 units/250 mL (100 units/mL) in 0.45 % [...] Units Date/Time FL C Arm During Surgery [[id number]] Resulted: 04/07/252137 Updated: 04/07/252137 Narrative: This procedure was auto-finalized with no dictation required. MRI Tibia Fibula Right With & Without Contrast [[id number]] Collected: 04/07/25 0938 Updated: 04/07/25 1001 Narrative: [...] Chitra 04/07/2025 9:58 AM EDT Workstation ID: [id number] Impression: Recurrent Right BKA stump abscess/cellulitis- this [...] from the original note were not included. [facility] Medicine Services PROGRESS NOTE Patient Name: [...] Buenrostro 04/07/2025 9:58 AM EDT Workstation ID: [id number] I have personally reviewed the therapy plans: [...] Jason Álvarez, DO 04/08/25 * Hamilton, Larisa, [facility] - 04/08/2025 11:48 AM [...] today, follow for restart after procedure Larisa Hamliton RPH 04/08/2025 11:47 EDT * Cherri Bonner [...] -- Admin Instructions: Open Order & Select [facility] Electrolyte Replacement Protocol Algorithm to [...] mg Daily 04/05/2025 -- Route: Oral heparin 88352 units/250 mL (100 units/mL) in 0.45 % [...] INFECTIOUS DISEASE Progress Note Won Dennis 1980 [id number] Date of Consult: 04/08/2025 Admission Date: 04/04/2025 [...] which prompted him to seek treatment at [facility]. He is known to Dr. [...] IRRIGATION; Surgeon: Sushil Dean Jr., MD; Location: [facility] OR; Service: Orthopedics; Laterality: Right; PLACEMENT OF WOUND VAC Right 04/07/2025 Procedure: WOUND VACUUM ASSISTED CLOSURE; Surgeon: Sushil Dean Jr., MD; Location: [facility] OR; Service: Orthopedics; Laterality: Right; History [...] Oral, Q6H PRN, 500 mg at 04/06/25 0744 OR acetaminophen (TYLENOL) 160 MG/5ML oral solution [...] Jr., MD, 20 mg at 04/07/25950 heparin 02323 units/250 mL (100 units/mL) in 0.45 % [...] vancomycin 2750 mg/500 mL 0.9% NS IVPB ([facility]) Ordering Provider: Mario Crowley, DO [...] Units Date/Time FL C Arm During Surgery [[id number]] Resulted: 04/07/252137 Updated: 04/07/252137 Narrative: This procedure was auto-finalized with no dictation required. MRI Tibia Fibula Right With & Without Contrast [[id number]] Collected: 04/07/25 0938 Updated: 04/07/25 1001 Narrative: [...] Buenrostro 04/07/2025 9:58 AM EDT Workstation ID: [id number] Impression: 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 (Treated by ID in [place] Dr. Harris). Dr. Torres treated him with [...] from the original note were not included. [facility] Medicine Services PROGRESS NOTE Patient Name: [...] Buenrostro 04/07/2025 9:58 AM EDT Workstation ID: [id number] I have personally reviewed the therapy plans: [...] Jason DO Preeti 04/07/25 * Larisa Hamilton, [facility] - 04/07/2025 11:56 AM [...] INFECTIOUS DISEASE Progress Note Won Dennis 1980 [id number] Date of Consult: 04/07/2025 Admission Date: 04/04/2025 [...] which prompted him to seek treatment at [facility]. He is known to Dr. [...] MD, 20 mg at 04/06/25 0900 heparin 11239 units/250 mL (100 units/mL) in 0.45 % [...] With & Without Contrast - In process [[id number]] Resulted: 04/07/25828 Updated: 04/07/25828 This result has not been signed. Information might be incomplete. MRI Tibia Fibula Right With & Without Contrast [[id number]] Collected: 04/04/252256 Updated: 04/04/253 Narrative: MRI TIBIA [...] represent a small area of phlegmonous change ([id number] image 10) measuring approximately 1.6 cm which [...] MD 04/04/2025 11:00 PM EDT Workstation ID: [id number] Impression: 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 (Treated by ID in [place] Dr. Harris). Dr. Torres treated him with [...] -- Admin Instructions: Open Order & Select [facility] Electrolyte Replacement Protocol Algorithm to [...] mg Daily 04/05/2025 -- Route: Oral heparin 50153 units/250 mL (100 units/mL) in 0.45 % [...] -- Admin Instructions: Open Order & Select [facility] Electrolyte Replacement Protocol Algorithm to [...] from the original note were not included. [facility] Medicine Services PROGRESS NOTE Patient Name: [...] MD 04/04/2025 11:00 PM EDT Workstation ID: [id number] I have personally reviewed the therapy plans: [...] mg Daily 04/05/2025 -- Route: Oral heparin 63984 units/250 mL (100 units/mL) in 0.45 % [...] -- Admin Instructions: Open Order & Select [facility] Electrolyte Replacement Protocol Algorithm to [...] -- Admin Instructions: Open Order & Select [facility] Electrolyte Replacement Protocol Algorithm to [...] INFECTIOUS DISEASE follow up. Won Dennis 1980 [id number] Date of Consult: 04/06/2025 Admission Date: 04/04/2025 [...] which prompted him to seek treatment at [facility]. He is known to Dr. [...] MD, 20 mg at 04/06/25 0900 heparin 12269 units/250 mL (100 units/mL) in 0.45 % NaCl infusion, 18 Units/kg/hr, Intravenous, Titrated, Cherri Beatty [facility], Last Rate: 24.1 mL/hr at 04/06/25 1420, 18 Units/kg/hr at 04/06/25 1420 hydroCHLOROthiazide tablet 12.5 mg, 12.5 mg, Oral, Daily, Leonora Shepherd MD, 12.5 mg at 859 HYDROmorphone (DILAUDID) injection 0.5 mg, 0.5 mg, Intravenous, Q2H PRN, Leonora Sehpherd MD, 0.5 mg at 04/05/25 0036 Magnesium [...] Tibia Fibula Right With & Without Contrast [[id number]] Collected: 04/04/252256 Updated: 04/04/252302 Narrative: MRI TIBIA [...] represent a small area of phlegmonous change (xsifll35 image 10) measuring approximately 1.6 cm which [...] MD 04/04/2025 11:00 PM EDT Workstation ID: [id number] Impression: 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 (Treated by ID in [place] Dr. Harris). Dr. Torres treated him with [...] from the original note were not included. [facility] Medicine Services PROGRESS NOTE Patient Name: [...] MD 04/04/2025 11:00 PM EDT Workstation ID: [id number] I have personally reviewed the therapy plans: [...] from the original note were not included. 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 He has [...] by mouth Daily. 04/03/2025 Morning Lactobacillus-Inulin ([facility] Digestive [facility]) capsule Take 200 mg by mouth [...] MD 04/04/2025 11:00 PM EDT Workstation ID: [id number] Assessment: Right BKA infection 44-year-old male with [...] DISEASE CONSULT/INITIAL HOSPITAL VISIT Won Dennis 1980 [id number] Date of Consult: 04/05/2025 Admission Date: 04/04/2025 [...] which prompted him to seek treatment at [facility]. He is known to Dr. [...] Leonora Shepherd MD, 40 mg at 04/04/25 5253 sennosides-docusate (PERICOLACE) 8.6-50 MG per tablet 2 [...] MD, 20 mg at 04/05/25 09 heparin 04439 units/250 mL (100 units/mL) in 0.45 % [...] Leonora Shepherd MD, 10 mg at 04/04/25 6474 Pharmacy to Dose Heparin, , Not Applicable, [...] Tibia Fibula Right With & Without Contrast [[id number]] Collected: 04/04/252256 Updated: 04/04/252302 Narrative: MRI TIBIA [...] represent a small area of phlegmonous change (thweon26 image 10) measuring approximately 1.6 cm which [...] MD 04/04/2025 11:00 PM EDT Workstation ID: [id number] Impression: 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 (Treated by ID in [place] Dr. Harris). Dr. Torres treated him with [...] Jr., MD - 04/08/2025 3:51 PM EDT [facility] OPERATIVE REPORT PATIENT NAME: Won Dennis DATE OF : 1980 PREOP DIAGNOSIS: Right Right below-knee amputation infection POSTOP DIAGNOSIS: Same. PROCEDURE: Right Right 40551: Secondary closure below-knee amputation SURGEON: Sushil Dean MD OPERATIVE TEAM: Railroad Detective: Susi Grullon RN Scrub Person: Mary Paredes Scrub Person Extra: Hortencia Toribio Other: Katt Gotti RN; Charis Neville RN ANESTHETIST: Anesthesiologist: Ulises Hoffman MD TALENT ACQUISITION ADMINISTRATOR: Stan Casillas CRNA Student Nurse Footwear Stitcher: Karol Albert SRNA ANESTHESIA: Choice ESTIMATED BLOOD [...] CULTURE (Canceled) Sushil Dean Jr., MD 04/08/25 5290 Description: RIGHT LEG DEEP WOUND FOR CULTURE [...] MD - 04/07/2025 9:03 PM EDT [facility], [place] [address] OPERATIVE REPORT PATIENT NAME: Won Dennis DATE OF : 1980 PREOP DIAGNOSIS: Right Right below knee amputation stump infection POSTOP DIAGNOSIS: Same. PROCEDURE: Right Right 43335: Incision and drainage of surgical site infection 64654: Debridement of skin, subcutaneous tissue, muscle 02196: Wound vacuum-assisted closure SURGEON: Sushil Dean MD OPERATIVE TEAM: Railroad Detective: Anum Sanchez RN Scrub Person: Hortencia Toribio; Gerald Ivey TECHNICAL PLANNER: Anesthesiologist: Luci Alonso DO ANESTHESIA: General ESTIMATED [...] ago swellling of the area. seen at [facility] yesterday for CT and US, [...] this chart in the absence of a industrial sweeper cleaner. No orders to display RADIOLOGY: [x] [...] with outpatient infusion at [facility]. He has an appointment with [facility] at 8:00 am tomorrow. They will [...] with KELLEE and given themhis Medicare number [id number], she sent it to Admission. DEBRA spoke with Kerri, with [facility], and explained that he had Medicare A and B. However, it will not cover home infusion. It will be $64.00 a day out of packet. Patients can go to the Infusion center at [facility], and it will cover the cost as an outpatient. He will need to go there every day for infusion. They will be able to do the patients' PICC line dressing changes and lab work. DEBRA called [facility] Outpatient infusion center they can accept patient and start him. He is known for their facility. The Facility will need to run it through his insurance first. CM faxed the orders over to [facility] at [phone]. CM will follow up with them tomorrow at [facility] to make sure they received the [...] 04/09/2025 2:51 PM EDT Continued Stay Note [facility] Patient Name: Won Dennis Today's Date: 04/09/2025 Admit Date: 04/04/2025 Plan: Home Discharge Plan Row Name 04/09/25 1311 Plan Plan Home Patient/Family in Agreement with Plan yes Plan Comments CM spoke with patient at bedside today. Wheelchair from [employer] is at bedside. Patient getting PICC line [...] note were not included. Discharge Planning Assessment [facility] Patient Name: Won Dennis Today's Date: [...] with family Patient/Family Anticipated Services at Transition nurse case managermanager access Anticipated family or friend will provide Discharge Needs Assessment Equipment Currently Used at Home glucometer;shower chair;pulse ox;bp cuff;prosthesis;crutches Equipment Needed After Discharge none Discharge Plan Row Name 04/07/25 1144 Plan Plan Home Patient/Family in Agreement with Plan yes Plan Comments CM spoke with patient at bedside today. Patient lives with and his 5 kids in [facility]. 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 He has walker, cane, shower chair, and crutches. He requested a wheelchair for home. CM will order wheelchair [facility]. He is not current with home health services. PCP is Dr. Jordan. Insurance is [employer] [place]. Patient discharge plan is home with priavte transport. CM will follow for any discharge needs. Final Discharge Disposition Code 01 - home or self-care Continued Care and Services - Admitted Since 04/04/2025 No active coordination exists. Demographic Summary Row Name 04/07/25 1143 General Information Arrived From hospital Preferred Language [place] Islander Functional Status Row Name 04/07/25 1143 [...] CBC Auto Differential (04/11/2025 3:40 AM EDT) [facility] WBC 7.87 3.40 - 10.80 10*3/mm3 04/11/2025 4:02 AM EDT [facility] RBC 4.70 4.14 - 5.80 10*6/mm3 04/11/2025 4:02 AM [facility] Hemoglobin 12.8(L) 13.0 - 17.7 g/dL 04/11/2025 4:02 AM [facility] Hematocrit 40.5 37.5 - 51.0 % 04/11/2025 4:02 AM [facility] MCV 86.2 79.0 - 97.0 fL [facility] MCH 27.2 26.6 - 33.0 pg 04/11/2025 4:02 AM [facility] MCHC 31.6 31.5 - 35.7 g/dL 04/11/2025 4:02 AM [facility] RDW 12.9 12.3 - 15.4 % 04/11/2025 4:02 AM [facility] RDW-SD 40.5 37.0 - 54.0 fl 04/11/2025 4:02 AM [facility] MPV 9.2 6.0 - 12.0 fL 04/11/2025 4:02 AM [facility] Platelets 267 140 - [...] - 7.00 10*3/mm3 04/11/2025 4:02 AM EDT [facility] Lymphocytes, Absolute 2.07 0.70 - 3.10 10*3/mm3 04/11/2025 4:02 AM EDT [facility] Monocytes, Absolute 0.73 0.10 - 0.90 10*3/mm3 04/11/2025 4:02 AM EDT [facility] Eosinophils, Absolute 0.32 0.00 - 0.40 10*3/mm3 04/11/2025 4:02 AM EDT [facility] Basophils, Absolute 0.03 0.00 - 0.20 10*3/mm3 04/11/2025 4:02 AM EDT [facility] Immature Grans, Absolute 0.03 0.00 - 0.05 10*3/mm3 04/11/2025 4:02 AM EDT [facility] nRBC 0.0 0.0 - 0.2 /100 WBC 04/11/2025 4:02 AM EDT [facility] Blood Venipuncture / Unknown 04/11/2025 3:40 AM EDT 04/11/2025 3:59 AM EDT us Sushil Dean Jr., MD LAB BLOOD ORDERABLES Fi nal Result [facility]
[address] [place] [address], * (ABNORMAL) Comprehensive Metabolic Panel (04/11/2025 3:40 AM EDT) [facility] Signature Glucose 108(H) 65 - 99 mg/dL 04/11/2025 4:19 AM EDT [facility] BUN 12.5 6.0 - 20.0 mg/dL 04/11/2025 4:19 AM EDT [facility] Creatinine 0.68(L) 0.76 - 1.27 mg/dL 04/11/2025 4:19 AM [facility] Sodium 140 136 - 145 mmol/L 04/11/2025 4:19 AM [facility] Potassium 3.8 3.5 - 5.2 mmol/L 04/11/2025 4:19 AM [facility] Chloride 105 98 - 107 mmol/L 04/11/2025 4:19 AM [facility] CO2 28.2 22.0 - 29.0 mmol/L 04/11/2025 4:19 AM [facility] Calcium 8.2(L) 8.6 - 10.5 mg/dL 04/11/2025 4:19 AM [facility] Total Protein 6.1 6.0 - 8.5 g/dL 04/11/2025 4:19 AM [facility] Albumin 3.1(L) 3.5 - 5.2 g/dL 04/11/2025 4:19 AM [facility] ALT (SGPT) 52(H) 1 - 41 U/L 04/11/2025 4:19 AM [facility] AST (SGOT) 40 1 - 40 U/L 04/11/2025 4:19 AM [facility] Alkaline Phosphatase 99 39 - 117 U/L 04/11/2025 4:19 AM [facility] Total Bilirubin 0.2 0.0 - 1.2 mg/dL 04/11/2025 4:19 AM [facility] Globulin 3.0 gm/dL 04/11/2025 4:19 AM [facility] Comment:Calculated Result A/G Ratio 1.0 g/dL 04/11/2025 4:19 AM [facility] BUN/Creatinine Ratio 18.4 7.0 - 25.0 04/11/2025 4:19 AM [facility] Anion Gap 6.8 5.0 - 15.0 mmol/L 04/11/2025 4:19 AM [facility] eGFR 117.5 >60.0 mL/min/1.7 3 04/11/2025 4:19 AM EDT [facility] Blood Venipuncture / Unknown 04/11/2025 3:40 AM EDT 04/11/2025 3:56 AM EDT [facility] - 04/11/2025 4:19 AM EDT [...] include race as a factor Rosario Hill [employer] PROFESS[employer] LAB BLOOD ORDERABLES Final Result [facility]
[address] [place] [address], * (ABNORMAL) CBC Auto Differential (04/10/2025 3:46 AM EDT) WBC 9.60 3.40 - 10.80 10*3/mm3 04/10/2025 3:56 AM EDT [facility] RBC 4.67 4.14 - 5.80 10*6/mm3 04/10/2025 3:56 AM EDT [facility] Hemoglobin 12.9(L) 13.0 - 17.7 g/dL 04/10/2025 3:56 AM EDT [facility] Hematocrit 40.1 37.5 - 51.0 % 04/10/2025 3:56 AM EDT [facility] MCV 85.9 79.0 - 97.0 fL 04/10/2025 3:56 AM EDT [facility] MCH 27.6 26.6 - 33.0 pg 04/10/2025 3:56 AM EDT [facility] MCHC 32.2 31.5 - 35.7 g/dL 04/[facility]25 [facility] RDW 12.9 12.3 - 15.4 % 04/10/2025 3:56 AM [facility] RDW-SD 40.5 37.0 - 54.0 fl 04/10/2025 3:56 AM [facility] MPV 9.5 6.0 - 12.0 fL 04/10/2025 3:56 AM EDT [facility] Platelets 227 140 - 450 10*3/mm3 04/10/2025 3:56 AM [facility] Neutrophil % 59.1 42.7 - 76.0 % 04/10/2025 3:56 AM [facility] Lymphocyte % 29.0 19.6 - 45.3 % 04/10/2025 3:56 AM [facility] Monocyte % 8.1 5.0 - 12.0 % 04/10/2025 3[facility] Eosinophil % 3.2 0.3 - 6.2 % 04/10/2025 3:56 AM [facility] Basophil % 0.4 0.0 - 1.5 % 04/10/2025 3:56 AM [facility] Immature Grans % 0.2 0.0 - 0.5 % 04/10/2025 3:56 AM [facility] Neutrophils, Absolute 5.67 1.70 [...] 0.20 10*3/mm3 04/10/2025 3:56 AM EDT [facility] Immature Grans, Absolute 0.02 0.00 - 0.05 10*3/mm3 04/10/2025 3:56 AM EDT [facility] nRBC 0.0 0.0 - 0.2 /100 WBC 04/10/2025 3:56 AM EDT [facility] Blood Venipuncture / Unknown 04/10/2025 3:46 AM EDT 04/10/2025 3:53 AM EDT us Jason Álvarez DO LAB BLOOD ORDERABLES Final Resul t [facility]
[address] [place] [address], * (ABNORMAL) Basic Metabolic Panel (04/10/2025 3:46 AM EDT) Glucose 125(H) 65 - 99 mg/dL 04/10/2025 4:20 AM EDT [facility] BUN 15.9 6.0 - 20.0 mg/dL 04/10/2025 4:20 AM EDT [facility] Creatinine 0.77 0.76 - 1.27 mg/dL 04/10/2025 4:20 AM EDT [facility] Sodium 137 136 - 145 mmol/L 04/10/2025 4:20 AM EDT [facility] Potassium 3.9 3.5 - 5.2 mmol/L 04/10/2025 4:20 AM EDT [facility] Chloride 102 98 - 107 mmol/L 04/10/2025 4:20 AM EDT [facility] CO2 26.9 22.0 - 29.0 mmol/L 04/10/2025 4:20 AM EDT [facility] Calcium 7.9(L) 8.6 - 10.5 mg/dL 04/10/2025 4:20 AM EDT [facility] BUN/Creatinine Ratio 20.6 7.0 - 25.0 04/10/2025 4:20 AM EDT [facility] Anion Gap 8.1 5.0 - 15.0 mmol/L 04/10/2025 4:20 AM EDT [facility] eGFR 113.2 >60.0 mL/min/1.7 3 04/10/2025 4:20 AM EDT [facility] Blood Venipuncture / Unknown 04/10/2025 3:46 AM EDT 04/10/2025 3:52 AM EDT Narrative [facility] - 04/10/2025 4:20 AM EDT [...] LAB BLOOD ORDERABLES Final Resul t [facility]
[address] [place] [address], * Heparin Anti-Xa (04/10/2025 3:46 AM EDT) Heparin Anti-Xa (UFH) 0.35 0.30 - 0.70 IU/ml 04/10/2025 4:23 AM EDT [facility] Blood Venipuncture / Unknown 04/10/2025 3:46 AM EDT 04/10/2025 3:53 AM EDT Larisa Hamilton [facility] LAB BLOOD ORDERABLES Final R esult [facility]
[address] [place] [address], * Heparin Anti-Xa (04/09/2025 10:05 AM EDT) Pathologist [facility] Heparin Anti-Xa (UFH) 0.36 0.30 - 0.70 IU/ml 04/09/2025 11:12 AM EDT [facility] Blood Venipuncture / Unknown 04/09/2025 10:05 AM EDT 04/09/2025 10:47 AM EDT Larisa Hamilton [facility] LAB BLOOD ORDERABLES Final R esult [facility]
[address] [place] [address], * (ABNORMAL) CBC Auto Differential (04/09/2025 4:18 AM EDT) Pathologist [facility] WBC 11.00(H) 3.40 - 10.80 10*3/mm3 04/09/2025 4:50 AM EDT [facility] RBC 4.70 4.14 - 5.80 10*6/mm3 04/09/2025 4:50 AM EDT [facility] Hemoglobin 13.0 13.0 - 17.7 g/dL 04/09/2025 4:50 AM EDT [facility] Hematocrit 40.4 37.5 - 51.0 % 04/09/2025 4:50 AM EDT [facility] MCV 86.0 79.0 - 97.0 fL 04/09/2025 4:50 AM EDT [facility] MCH 27.7 26.6 - 33.0 pg 04/09/2025 4:50 AM EDT [facility] MCHC 32.2 31.5 - 35.7 g/dL 04/09/2025 4:50 AM EDT [facility] RDW 12.8 12.3 - 15.4 % 04/09/2025 4:50 AM [facility] RDW-SD 39.9 37.0 - 54.0 fl 04/09/2025 4:50 AM [facility] MPV 10.0 6.0 - 12.0 fL 04/09/2025 4:50 AM [facility] Platelets 211 140 - 450 10*3/mm3 04/09/2025 [facility] Neutrophil % 74.8 42.7 - 76.0 % 04/09/2025 4:50 AM [facility] Lymphocyte % 15.4(L) 19.6 - 45.3 % 04/09/2025 4:50 AM [facility] Monocyte % 8.5 5.0 - 12.0 % 04/09/2025 4:50 AM [facility] Eosinophil % 0.6 0.3 - 6.2 % 04/09/2025 4:50 AM [facility] Basophil % 0.4 0.0 - 1.5 % 04/09/2025 4:50 AM [facility] Immature Grans % 0.3 0.0 - 0.5 % 04/09/2025 4:50 AM [facility] Neutrophils, Absolute 8.23(H) 1.70 - 7.00 10*3/mm3 04/09/2025 4:50 AM [facility] Lymphocytes, Absolute 1.69 0.70 - 3.10 10*3/mm3 04/09/2025 4:50 AM [facility] Monocytes, Absolute 0.94(H) 0.10 - 0.90 10*3/mm3 04/09/2025 4:[facility] Eosinophils, Absolute 0.07 0.00 - 0.40 10*3/mm3 04/09/2025 4:50 AM [facility] Basophils, Absolute 0.04 0.00 - 0.20 10*3/mm3 04/09/2025 4:50 AM [facility] Immature Grans, Absolute 0.03 0.00 - 0.05 10*3/mm3 04/09/2025 4:50 AM EDT [facility] nRBC 0.0 0.0 - 0.2 /100 WBC 04/09/2025 4:50 AM EDT [facility] Blood Venipuncture / Unknown 04/09/2025 4:18 AM EDT 04/09/2025 4:31 AM EDT Sushil Dean Jr., MD LAB BLOOD ORDERABLES Fi nal Result [facility]
[address] [place] [address], * Heparin Anti-Xa (04/09/2025 4:18 AM EDT) Heparin Anti-Xa (UFH) 0.41 0.30 - 0.70 IU/ml 04/09/2025 4:53 AM EDT [facility] Blood Venipuncture / Unknown 04/09/2025 4:18 AM EDT 04/09/2025 4:31 AM EDT Una LundbergD LAB BLOOD ORDERABLES Final R esult [facility]
[address] [place] [address], * (ABNORMAL) Basic Metabolic Panel (04/09/2025 4:18 AM EDT) Glucose 147(H) 65 - 99 mg/dL 04/09/2025 5:33 AM EDT [facility] BUN 23.0(H) 6.0 - 20.0 mg/dL 04/09/2025 5:33 AM EDT [facility] Creatinine 1.15 0.76 - 1.27 mg/dL 04/09/2025 5:33 AM EDT [facility] Sodium 135(L) 136 - 145 mmol/L 04/09/2025 5:33 AM EDT [facility] Potassium 4.2 3.5 - 5.2 mmol/L 04/09/2025 5:33 AM EDT [facility] Chloride 100 98 - 107 mmol/L 04/09/2025 5:33 AM EDT [facility] CO2 26.0 22.0 - 29.0 mmol/L 04/09/2025 5:33 AM EDT [facility] Calcium 8.2(L) 8.6 - 10.5 mg/dL 04/09/2025 5:33 AM EDT [facility] BUN/Creatinine Ratio 20.0 7.0 - 25.0 04/09/2025 5:33 AM EDT [facility] Anion Gap 9.0 5.0 - 15.0 mmol/L 04/09/2025 5:33 AM EDT [facility] eGFR 80.5 >60.0 mL/min/1.7 3 04/09/2025 5:33 AM EDT [facility] Blood Venipuncture / Unknown 04/09/2025 4:18 AM EDT 04/09/2025 4:29 AM EDT [facility]AT[facility] - 04/09/2025 5:33 AM EDT [...] LAB BLOOD ORDERABLES Fi nal Result [facility]
[address] [place] [address], * Wound Culture - Swab, Leg, Right (04/08/2025 3:40 PM EDT) Wound Culture No growth at 3 days ALIZA 04/11/2025 10:40 AM EDT [facility] Gram Stain Few (2+) WBCs seen 04/11/2025 10:40 AM EDT [facility] Gram Stain No organisms seen 04/11/2025 10:40 AM EDT [facility] Swab Structure of right lower limb / Unknown 04/08/2025 3:40 PM EDT 04/08/2025 8:05 PM EDT Sushil Dean Jr., MD MICROBIOLOGY - GENERAL ORDERABLES Final Result Performing Organization Address City/[facility]/ZIP Co de Phone Number [facility]
[address] [place] [address], [facility]
[address] [place] [address], * Anaerobic Culture - Swab, Leg, Right (04/08/2025 3:40 PM EDT) Pathologist [facility] Anaerobic Culture No anaerobes isolated at 5 days ALIZA 04/13/2025 7:24 AM EDT [facility] Swab Structure of right lower limb / Unknown 04/08/2025 3:40 PM EDT 04/08/2025 8:05 PM EDT Sushil Dean Jr., MD MICROBIOLOGY - GENERAL ORDERABLES Final Result [facility]
[address] [place] [address], * Scan Slide (04/08/2025 8:41 AM EDT) RBC Morphology Normal Normal 04/08/2025 11:02 AM EDT [facility] WBC Morphology Normal Normal 04/08/2025 11:02 AM EDT [facility] Platelet Estimate Adequate Normal 04/08/2025 11:02 AM EDT [facility] Clumped Platelets Present None Seen 04/08/2025 11:02 AM EDT [facility] Blood Venipuncture / Unknown 04/08/2025 8:41 AM EDT 04/08/2025 9:10 AM EDT Una Minda PharmD LAB BLOOD ORDERABLES Final R esult [facility]
[address] [place] [address], * (ABNORMAL) CBC Auto Differential (04/08/2025 8:41 AM EDT) WBC 10.07 3.40 - 10.80 10*3/mm3 04/08/2025 11:02 AM EDT [facility] RBC 5.01 4.14 - 5.80 10*6/mm3 04/08/2025 11:02 AM EDT [facility] Hemoglobin 14.0 13.0 - 17.7 g/dL 04/08/2025 11:02 AM EDT [facility] Hematocrit 42.7 37.5 - 51.0 % 04/08/2025 11:02 AM EDT [facility] MCV 85.2 79.0 - 97.0 fL 04/08/2025 11:02 AM EDT [facility] MCH 27.9 26.6 - 33.0 pg 04/08/2025 11:02 AM EDT [facility] MCHC 32.8 31.5 - 35.7 g/dL 04/08/2025 11:02 AM EDT [facility] RDW 12.6 12.3 - 15.4 % 04/08/2025 11:02 AM EDT [facility] RDW-SD 38.9 37.0 - 54.0 [...] 1.70 - 7.00 10*3/mm3 04/08/2025 11:02 AM [facility] Lymphocytes, Absolute 0.94 0.70 - 3.10 10*3/mm3 04/08/2025 11:02 AM [facility] Monocytes, Absolute 0.46 0.10 - 0.90 10*3/mm3 04/08/2025 11:02 AM [facility] Eosinophils, Absolute 0.03 0.00 - 0.40 10*3/mm3 04/08/2025 11:02 AM [facility] Basophils, Absolute 0.02 0.00 - 0.20 10*3/mm3 04/08/2025 11:02 AM [facility] Immature Grans, Absolute 0.05 0.00 - 0.05 10*3/mm3 04/08/2025 11:02 AM EDT [facility] nRBC 0.0 0.0 - 0.2 /100 WBC 04/08/2025 11:02 AM EDT [facility] Blood Venipuncture / Unknown 04/08/2025 8:41 AM EDT 04/08/2025 9:10 AM EDT Una Perla PharmD LAB BLOOD ORDERABLES Final R esult [facility]
[address] [place] [address], * (ABNORMAL) Basic Metabolic Panel (04/08/2025 8:41 AM EDT) Glucose 125(H) 65 - 99 mg/dL 04/08/2025 9:51 AM EDT [facility] BUN 13.2 6.0 - 20.0 mg/dL 04/08/2025 9:51 AM EDT [facility] Creatinine 0.69(L) 0.76 - 1.27 mg/dL 04/08/2025 9:51 AM EDT [facility] Sodium 136 136 - 145 mmol/L 04/08/2025 9:51 AM EDT [facility] Potassium 4.6 3.5 - 5.2 mmol/L 04/08/2025 9:51 AM EDT [facility] Chloride 102 98 - 107 mmol/L 04/08/2025 9:51 AM EDT [facility] CO2 23.5 22.0 - 29.0 mmol/L 04/08/2025 9:51 AM EDT [facility] Calcium 8.4(L) 8.6 - 10.5 mg/dL 04/08/2025 9:51 AM EDT [facility] BUN/Creatinine Ratio 19.1 7.0 - 25.0 04/08/2025 9:51 AM EDT [facility] Anion Gap 10.5 5.0 - 15.0 mmol/L 04/08/2025 9:51 AM EDT [facility] eGFR 117.0 >60.0 mL/min/1.7 3 04/08/2025 9:51 AM EDT [facility] Blood Venipuncture / Unknown 04/08/2025 8:41 AM EDT 04/08/2025 9:09 AM EDT Narrative [facility] - 04/08/2025 9:51 AM EDT [...] ORDERABLES Fi nal Result Performing Organization Address City/[facility]/ZIP Co de Phone Number [facility]
[address] [place] [address], * Heparin Anti-Xa (04/08/2025 8:41 AM EDT) Heparin Anti-Xa (UFH) 0.33 0.30 - 0.70 IU/ml 04/08/2025 9:40 AM EDT [facility] Blood Venipuncture / Unknown 04/08/2025 8:41 AM EDT 04/08/2025 9:10 AM EDT us Sushil Dean Jr., MD LAB BLOOD ORDERABLES Fi nal Result [facility]
[address] [place] [address], * FL C Arm During Surgery (04/07/2025 9:32 PM EDT) Narrative SYSTEMGENERATED, DOCUMENTATION - 04/07/2025 9:38 PM EDT This procedure was auto-finalized with no dictation required. us Sushil Dean Jr., MD IMG FLUOROSCOPY ORDERAB LES Final Result * Wound Culture - Swab, Leg, Right (04/07/2025 9:14 PM EDT) Wound Culture No growth at 3 days ALIZA 04/11/2025 10:40 AM EDT [facility] Gram Stain Occasional WBCs seen 04/11/2025 10:40 AM EDT [facility] Gram Stain No organisms seen 04/11/2025 10:40 AM EDT [facility] Swab Structure of right lower limb / Unknown Collection / Unknown 04/07/2025 9:14 PM EDT 04/08/2025 4:36 AM EDT us Sushil Dean Jr., MD MICROBIOLOGY - GENERAL ORDERABLES Final Result Performing Organization Address City/[facility]/ZIP Co de Phone Number [facility]
[address] [place] [address], [facility]
[address] [place] [address], * Anaerobic Culture - Swab, Leg, Right (04/07/2025 9:14 PM EDT) Anaerobic Culture No anaerobes isolated at 5 days ALIZA 04/13/2025 7:21 AM EDT [facility] Swab Structure of right lower limb / Unknown Collection / Unknown 04/07/2025 9:14 PM EDT 04/08/2025 4:36 AM EDT us Sushil Dean Jr., MD MICROBIOLOGY - GENERAL ORDERABLES Final Result [facility]
[address] [place] [address], * Anaerobic Culture - Tissue, Leg (04/07/2025 9:13 PM EDT) Pathologist [facility] Anaerobic Culture No anaerobes isolated at 5 days ALIZA 04/13/2025 7:21 AM EDT [facility] Tissue Lower limb structure / Unknown Collection / Unknown 04/07/2025 9:13 PM EDT 04/08/2025 4:54 AM EDT Jason Álvarez DO MICROBIOLOGY - GENERAL ORDERABLE S Final Result [facility]
[address] [place] [address], * Tissue / Bone Culture - Tissue, Leg, Right (04/07/2025 9:13 PM EDT) [facility] Tissue Culture No growth at 3 days ALIZA 04/11/2025 10:36 AM EDT [facility] Gram Stain Rare (1+) WBCs seen 04/11/2025 10:36 AM EDT [facility] Gram Stain No organisms seen 04/11/2025 10:36 AM EDT [facility] Tissue Structure of right lower limb / Unknown 04/07/2025 9:13 PM EDT 04/08/2025 4:54 AM EDT Sushil Dean Jr., MD MICROBIOLOGY - GENERAL ORDERABLES Final Result [facility]
[address] [place] [address], [facility]
[address] [place] [address], * (ABNORMAL) Wound Culture - Swab, Leg, Right (04/07/2025 9:07 PM EDT) Pathologist [facility] Wound Culture Light growth (2+) Staphylococcus aureus, MRSA(A) ALIZA 04/10/2025 10:38 AM EDT [facility] Comment: Methicillin resistant Staphylococcus aureus, Patient may be an isolation risk. Gram Stain Few (2+) WBCs seen 04/10/2025 10:38 AM EDT [facility] Gram Stain No organisms seen 10:38 AM EDT [facility] Swab Structure of right lower [...] MICROBIOLOGY - GENERAL ORDERABLES Final Result [facility]
[address] [place] [address], [place] [phone] [facility]
[address] [place] [address], [place] [phone] * Anaerobic Culture - Swab, Leg, Right (04/07/2025 9:07 PM EDT) Anaerobic Culture No anaerobes isolated at 5 days ALIZA 04/13/2025 7:21 AM EDT [facility] Swab Structure of right lower limb / Unknown Collection / Unknown 04/07/2025 9:07 PM EDT 04/08/2025 4:36 AM EDT us Sushil Dean Jr., MD MICROBIOLOGY - GENERAL ORDERABLES Final Result [facility]
[address] [place] [address], * Heparin Anti-Xa (04/07/2025 9:10 AM EDT) [facility] Heparin Anti-Xa (UFH) 0.30 0.30 - 0.70 IU/ml 04/07/2025 10:12 AM EDT [facility] Blood Venipuncture / Unknown 04/07/2025 9:10 AM EDT 04/07/2025 9:38 AM EDT Una Perla PharmD LAB BLOOD ORDERABLES Final R esult [facility]
[address] [place] [address], * (ABNORMAL) CBC Auto Differential (04/07/2025 9:10 AM EDT) [facility] WBC 8.63 3.40 - 10.80 10*3/mm3 04/07/2025 9:50 AM EDT [facility] RBC 5.23 4.14 - 5.80 10*6/mm3 04/07/2025 9:50 AM EDT [facility] Hemoglobin 14.7 13.0 - 17.7 g/dL 04/07/2025 9:50 AM EDT [facility] Hematocrit 44.8 37.5 - 51.0 % 04/07/2025 9:50 AM EDT [facility] MCV 85.7 79.0 - 97.0 fL 04/07/2025 9:50 AM EDT [facility] MCH 28.1 26.6 - 33.0 pg 04/07/2025 9:50 AM EDT [facility] MCHC 32.8 31.5 - 35.7 g/dL 04/07/2025 9:50 AM EDT [facility] RDW 12.8 12.3 - 15.4 % 04/07/2025 9:50 AM [facility] RDW-SD 39.9 37.0 - 54.0 fl 04/07/2025 9:50 AM [facility] MPV 10.8 6.0 - 12.0 fL 04/07/2025 9:50 AM [facility] Platelets 149 140 - 450 10*3/mm3 04/07/2025 9:50 AM [facility] Neutrophil % 66.7 42.7 - 76.0 % 04/07/2025 9:50 AM [facility] Lymphocyte % 20.5 19.6 - 45.3 % 04/07/2025 9:50 AM [facility] Monocyte % 9.8 5.0 - 12.0 % 04/07/2025 9:50 AM [facility] Eosinophil % 2.1 0.3 - 6.2 % 04/07/2025 9:50 AM [facility] Basophil % 0.3 0.0 - 1.5 % 04/07/2025 9:50 AM [facility] Immature Grans % 0.6(H) 0.0 - 0.5 % 04/07/2025 9:50 AM [facility] Neutrophils, Absolute 5.75 1.70 - 7.00 10*3/mm3 04/07/2025 9:50 AM [facility] Lymphocytes, Absolute 1.77 0.70 - 3.10 10*3/mm3 04/07/2025 9:50 AM [facility] Monocytes, Absolute 0.85 0.10 - 0.90 10*3/mm3 04/07/2025 9:50 AM [facility] Eosinophils, Absolute 0.18 0.00 - 0.40 10*3/mm3 04/07/2025 9:50 AM [facility] Basophils, Absolute 0.03 0.00 - 0.20 10*3/mm3 04/07/2025 9:50 AM [facility] Immature Grans, Absolute 0.05 0.00 - 0.05 10*3/mm3 04/07/2025 9:50 AM EDT [facility] nRBC 0.0 0.0 - 0.2 /100 WBC 04/07/2025 9:50 AM EDT [facility] Blood Venipuncture / Unknown 04/07/2025 9:10 AM EDT 04/07/2025 9:38 AM EDT Jasonalfonso Álvarez LAB BLOOD ORDERABLES Final Resul t [facility]
[address] [place] [address], * (ABNORMAL) Basic Metabolic Panel (04/07/2025 9:10 AM EDT) Glucose 112(H) 65 - 99 mg/dL 04/07/2025 10:19 AM EDT [facility] BUN 13.1 6.0 - 20.0 mg/dL 04/07/2025 10:19 AM EDT [facility] Creatinine 0.77 0.76 - 1.27 mg/dL 04/07/2025 10:19 AM EDT [facility] Sodium 139 136 - 145 mmol/L 04/07/2025 10:19 AM EDT [facility] Potassium 4.2 3.5 - 5.2 mmol/L 04/07/2025 10:19 AM EDT [facility] Comment:Specimen hemolyzed. Result may be falsely elevated. Chloride 105 98 - 107 mmol/L 04/07/2025 10:19 AM EDT [facility] CO2 24.8 22.0 - 29.0 mmol/L 04/07/2025 10:19 AM EDT [facility] Calcium 8.6 8.6 - 10.5 mg/dL 04/07/2025 10:19 AM EDT [facility] BUN/Creatinine Ratio 17.0 7.0 - 25.0 04/07/2025 10:19 AM EDT [facility] Anion Gap 9.2 5.0 - 15.0 mmol/L 04/07/2025 10:19 AM EDT [facility] eGFR 113.2 >60.0 mL/min/1.7 3 04/07/2025 10:19 AM EDT [facility] Blood Venipuncture / Unknown 04/07/2025 9:10 AM EDT 04/07/2025 9:38 AM EDT Narrative [facility] - 04/07/2025 10:19 AM EDT [...] Álvarez LAB BLOOD ORDERABLES Final Resul t [facility]
[address] [place] [address], * MRI Tibia Fibula Right With & [...] [place] 04/07/2025 9:58 AM EDT Workstation ID: [id number] Narrative 04/07/2025 9:58 AM EDT MRI TIBIA [...] [place] 04/07/2025 9:58 AM EDT Workstation ID: [id number] Sushil Dean Jr., MD IM MRI ORDERABLES Mary Beth l Result * Heparin Anti-Xa (04/07/2025 1:42 AM EDT) [facility] Heparin Anti-Xa (UFH) 0.38 0.30 - 0.70 IU/ml 04/07/2025 2:14 AM EDT [facility] Blood Venipuncture / Unknown 04/07/2025 1:42 AM EDT 04/07/2025 1:54 AM EDT Chelsie Turpin [facility] LAB BLOOD ORDERABLES Final R esult [facility]
[address] [place] [address], * Heparin Anti-Xa (04/06/2025 7:16 PM EDT) [facility] Heparin Anti-Xa (UFH) 0.33 0.30 - 0.70 IU/ml 04/06/2025 7:50 PM EDT [facility] Blood Venipuncture / Unknown 04/06/2025 7:16 PM EDT 04/06/2025 7:35 PM EDT Cherri Beatty RP LAB BLOOD ORDERABLES Final Res ult Performing Organization Address City/[facility]/ZIP Co de Phone Number [facility]
[address] [place] [address], * Potassium (04/06/2025 7:16 PM EDT) Potassium 4.0 3.5 - 5.2 mmol/L 04/06/2025 7:53 PM EDT [facility] Blood Venipuncture / Unknown 04/06/2025 7:16 PM EDT 04/06/2025 7:35 PM EDT Jason Álvarez DO LAB BLOOD ORDERABLES Final Resul t Performing Organization Address [facility] de Phone Number [facility]
[address] [place] [address], * (ABNORMAL) Heparin Anti-Xa (04/06/2025 12:36 PM EDT) Heparin Anti-Xa (UFH) 0.24(L) 0.30 - 0.70 IU/ml 04/06/2025 1:23 PM EDT [facility] Blood Venipuncture / Unknown 04/06/2025 12:36 PM EDT 04/06/2025 1:07 PM EDT Una LundbergD LAB BLOOD ORDERABLES Final R esult Performing Organization Address [facility] Co de Phone Number [facility]
[address] [place] [address], * (ABNORMAL) Heparin Anti-Xa (04/06/2025 3:42 AM EDT) Heparin Anti-Xa (UFH) 0.25(L) 0.30 - 0.70 IU/ml 04/06/2025 5:30 AM EDT [facility] Blood Venipuncture / Unknown 04/06/2025 3:42 AM EDT 04/06/2025 4:59 AM EDT Chelsie Turpin [facility] LAB BLOOD ORDERABLES Final R esult [facility]
[address] [place] [address], * (ABNORMAL) Basic Metabolic Panel (04/06/2025 3:42 AM EDT) Pathologist [facility] Glucose 94 65 - 99 mg/dL 04/06/2025 5:59 AM EDT [facility] BUN 12.8 6.0 - 20.0 mg/dL 04/06/2025 5:59 AM EDT [facility] Creatinine 0.80 0.76 - 1.27 mg/dL 04/06/2025 5:59 AM EDT [facility] Sodium 138 136 - 145 mmol/L 04/06/2025 5:59 AM EDT [facility] Potassium 3.6 3.5 - 5.2 mmol/L 04/06/2025 5:59 AM EDT [facility] Chloride 103 98 - 107 mmol/L 04/06/2025 5:59 AM EDT [facility] CO2 24.2 22.0 - 29.0 mmol/L 04/06/2025 5:59 AM EDT [facility] Calcium 8.0(L) 8.6 - 10.5 mg/dL 04/06/2025 5:59 AM EDT [facility] BUN/Creatinine Ratio 16.0 7.0 - 25.0 04/06/2025 5:59 AM EDT [facility] Anion Gap 10.8 5.0 - 15.0 mmol/L 04/06/2025 5:59 AM EDT [facility] eGFR 111.9 >60.0 mL/min/1.7 3 04/06/2025 5:59 AM EDT [facility] Blood Venipuncture / Unknown 04/06/2025 3:42 AM EDT 04/06/2025 5:20 AM EDT [facility] - 04/06/2025 5:59 AM EDT [...] LAB BLOOD ORDERABLES Final Resul t [facility]
[address] [place] [address], * (ABNORMAL) CBC Auto Differential (04/06/2025 3:41 AM EDT) WBC 10.86(H) 3.40 - 10.80 10*3/mm3 04/06/2025 5:04 AM EDT [facility] RBC 5.08 4.14 - 5.80 10*6/mm3 04/06/2025 5:04 AM EDT [facility] Hemoglobin 13.9 13.0 - 17.7 g/dL 04/06/2025 5:04 AM EDT [facility] Hematocrit 43.7 37.5 - 51.0 % 04/06/2025 5:04 AM EDT [facility] MCV 86.0 79.0 - 97.0 fL 04/06/2025 5:04 AM [facility] MCH 27.4 26.6 - 33.0 pg 04/06/2025 5:04 AM [facility] MCHC 31.8 31.5 - 35.7 g/dL 04/06/2025 5:04 AM [facility] RDW 12.8 12.3 - 15.4 % 04/06/2025 5:04 AM [facility] RDW-SD 40.0 37.0 - 54.0 fl 04/06/2025 5:04 AM [facility] MPV 11.7 6.0 - 12.0 fL 04/06/2025 5:04 AM [facility] Platelets 115(L) 140 - 450 10*3/mm3 04/06/2025 5:04 AM [facility] Neutrophil % 65.3 42.7 - 76.0 % 04/06/2025 5:04 AM [facility] Lymphocyte % 20.5 19.6 - 45.3 % 04/06/2025 5:04 AM [facility] Monocyte % 11.8 5.0 - 12.0 % 04/06/2025 5:04 AM [facility] Eosinophil % 1.8 0.3 - 6.2 % 04/06/2025 5:04 AM [facility] Basophil % 0.3 0.0 - 1.5 % 04/06/2025 5:04 AM [facility] Immature Grans % 0.3 0.0 - 0.5 % 04/06/2025 5:04 AM [facility] Neutrophils, Absolute 7.09(H) 1.70 - 7.00 10*3/mm3 04/06/2025 5:04 AM [facility] Lymphocytes, Absolute 2.23 0.70 - 3.10 10*3/mm3 04/06/2025 5:04 AM [facility] Monocytes, Absolute 1.28(H) 0.10 - 0.90 10*3/mm3 04/06/2025 5:04 AM EDT [facility] Eosinophils, Absolute 0.20 0.00 - 0.40 10*3/mm3 04/06/2025 5:04 AM EDT [facility] Basophils, Absolute 0.03 0.00 - 0.20 10*3/mm3 04/06/2025 5:04 AM EDT [facility] Immature Grans, Absolute 0.03 0.00 - 0.05 10*3/mm3 04/06/2025 5:04 AM EDT [facility] nRBC 0.0 0.0 - 0.2 /100 WBC 04/06/2025 5:04 AM EDT [facility] Blood Venipuncture / Unknown 04/06/2025 3:41 AM EDT 04/06/2025 4:58 AM EDT Jason Álvarez DO LAB BLOOD ORDERABLES Final Resul t Performing Organization Address City/[facility]/ZIP Co de Phone Number [facility]
[address] [place] [address], [place] [phone] * Heparin Anti-Xa (04/05/2025 8:43 PM EDT) [facility] Heparin Anti-Xa (UFH) 0.38 0.30 - 0.70 IU/ml 04/05/2025 9:09 PM EDT [facility] Blood Venipuncture / Unknown 04/05/2025 8:43 PM EDT 04/05/2025 8:55 PM EDT us Cherri Beatty [facility] LAB BLOOD ORDERABLES Final Res ult Performing Organization Address City/[facility]/ZIP Co de Phone Number [facility]
[address] [place] [address], [place] [phone] * CK (04/05/2025 12:15 PM EDT) Pathologist [facility] Creatine Kinase 140 20 - 200 U/L 04/05/2025 1:31 PM EDT [facility] Blood Venipuncture / Unknown 04/05/2025 12:15 PM EDT 04/05/2025 1:03 PM EDT Carlton Mead MD LAB BLOOD ORDERABLES Final R esult Performing Organization Address City/[facility]/ZIP Co de Phone Number [facility]
[address] [place] [address], * (ABNORMAL) Heparin Anti-Xa (04/05/2025 12:15 PM EDT) Heparin Anti-Xa (UFH) 0.17(L) 0.30 - 0.70 IU/ml 04/05/2025 1:21 PM EDT [facility] Blood Venipuncture / Unknown 04/05/2025 12:15 PM EDT 04/05/2025 1:04 PM EDT Una Perla PharmD LAB BLOOD ORDERABLES Final R esult [facility]
[address] [place] [address], * (ABNORMAL) aPTT (04/05/2025 3:54 AM EDT) PTT 35.3(L) 60.0 - 90.0 seconds 04/05/2025 4:31 AM EDT [facility] Blood Venipuncture / Unknown 04/05/2025 3:54 AM EDT 04/05/2025 4:15 AM EDT Narrative [facility] - 04/05/2025 4:31 AM EDT PTT = The equivalent PTT values for the therapeutic range of heparin levels at 0.3 to 0.5 U/ml are 60 to 70 seconds. Una Perla PharmD LAB BLOOD ORDERABLES Final R esult [facility]
[address] [place] [address], * Heparin Anti-Xa (04/05/2025 3:54 AM EDT) Pathologist [facility] Heparin Anti-Xa (UFH) 0.30 0.30 - 0.70 IU/ml 04/05/2025 4:32 AM EDT [facility] Blood Venipuncture / Unknown 04/05/2025 3:54 AM EDT 04/05/2025 4:15 AM EDT Una [email or web address] LAB BLOOD ORDERABLES Final R esult Performing Organization Address City/[facility]/ZIP Co de Phone Number [facility]
[address] [place] [address], * (ABNORMAL) CBC Auto Differential (04/05/2025 3:54 AM EDT) Pathologist [facility] WBC 11.18(H) 3.40 - 10.80 10*3/mm3 04/05/2025 4:20 AM EDT [facility] RBC 5.00 4.14 - 5.80 10*6/mm3 04/05/2025 4:20 AM EDT [facility] Hemoglobin 13.9 13.0 - 17.7 g/dL 04/05/2025 4:20 AM EDT [facility] Hematocrit 42.4 37.5 - 51.0 % 04/05/2025 4:20 AM EDT [facility] MCV 84.8 79.0 - 97.0 fL 04/05/2025 4:20 AM EDT [facility] MCH 27.8 26.6 - 33.0 pg 04/05/2025 4:20 AM EDT [facility] MCHC 32.8 31.5 - 35.7 [...] 42.7 - 76.0 % 04/05/2025 4:20 AM [facility] Lymphocyte % 14.0(L) 19.6 - 45.3 % 04/05/2025 4:20 AM [facility] Monocyte % 11.0 5.0 - 12.0 % 04/05/2025 4:20 AM [facility] Eosinophil % 0.8 0.3 - 6.2 % 04/05/2025 4:20 AM [facility] Basophil % 0.3 0.0 - 1.5 % 04/05/2025 4:20 AM [facility] Immature Grans % 0.4 0.0 - 0.5 % 04/05/2025 4:20 AM [facility] Neutrophils, Absolute 8.23(H) 1.70 - 7.00 10*3/mm3 04/05/2025 4:20 AM [facility] Lymphocytes, Absolute 1.56 0.70 - 3.10 10*3/mm3 04/05/2025 4:20 AM [facility] Monocytes, Absolute 1.23(H) 0.10 - 0.90 10*3/mm3 04/05/2025 4:20 AM [facility] Eosinophils, Absolute 0.09 0.00 - 0.40 10*3/mm3 04/05/2025 4:20 AM [facility] Basophils, Absolute 0.03 0.00 - 0.20 10*3/mm3 04/05/2025 4:20 AM EDT [facility] Immature Grans, Absolute 0.04 0.00 - 0.05 10*3/mm3 04/05/2025 4:20 AM EDT [facility] nRBC 0.0 0.0 - 0.2 /100 WBC 04/05/2025 4:20 AM EDT [facility] Blood Venipuncture / Unknown 04/05/2025 3:54 AM EDT 04/05/2025 4:16 AM EDT Una Perla PharmD LAB BLOOD ORDERABLES Final R esult [facility]
[address] [place] [address], * (ABNORMAL) Basic Metabolic Panel (04/05/2025 3:54 AM EDT) Glucose 152(H) 65 - 99 mg/dL 04/05/2025 4:40 AM EDT [facility] BUN 17.3 6.0 - 20.0 mg/dL 04/05/2025 4:40 AM EDT [facility] Creatinine 0.92 0.76 - 1.27 mg/dL 04/05/2025 4:40 AM EDT [facility] Sodium 136 136 - 145 mmol/L 04/05/2025 4:40 AM EDT [facility] Potassium 3.9 3.5 - 5.2 mmol/L 04/05/2025 4:40 AM EDT [facility] Chloride 103 98 - 107 mmol/L 04/05/2025 4:40 AM EDT [facility] CO2 24.0 22.0 - 29.0 mmol/L 04/05/2025 4:40 AM EDT [facility] Calcium 7.8(L) 8.6 - 10.5 mg/dL 04/05/2025 4:40 AM EDT [facility] BUN/Creatinine Ratio 18.8 7.0 - 25.0 04/05/2025 4:40 AM EDT [facility] Anion Gap 9.0 5.0 - 15.0 mmol/L 04/05/2025 4:40 AM EDT [facility] eGFR 105.2 >60.0 mL/min/1.7 3 04/05/2025 4:40 AM EDT [facility] Blood Venipuncture / Unknown 04/05/2025 3:54 AM EDT 04/05/2025 4:15 AM EDT [facility] - 04/05/2025 4:40 AM EDT [...] MD LAB BLOOD ORDERABLES Final Re sult [facility]
[address] [place] [address], * (ABNORMAL) aPTT (04/05/2025 12:18 AM EDT) PTT 33.6(L) 60.0 - 90.0 seconds 04/05/2025 12:53 AM EDT [facility] Blood Venipuncture / Unknown 04/05/2025 12:18 AM EDT 04/05/2025 12:37 AM EDT [facility] - 04/05/2025 12:53 AM EDT PTT = The equivalent PTT values for the therapeutic range of heparin levels at 0.3 to 0.5 U/ml are 60 to 70 seconds. [employer] PharmD LAB BLOOD ORDERABLES Final R esult Performing Organization Address City/[facility]/ZIP Co de Phone Number [facility]
[address] [place] [address], * (ABNORMAL) Protime-INR (04/05/2025 12:18 AM EDT) Protime 15.9(H) 12.2 - 15.3 Seconds 04/05/2025 12:53 AM EDT [facility] INR 1.19(H) 0.89 - 1.12 04/05/2025 12:53 AM EDT [facility] Blood Venipuncture / Unknown 04/05/2025 12:18 AM EDT 04/05/2025 12:37 AM EDT [employer] PharmD LAB BLOOD ORDERABLES Final R esult Performing Organization Address [facility] Co de Phone Number [facility]
[address] [place] [address], * Heparin Anti-Xa (04/05/2025 12:18 AM EDT) Pathologist [facility] Heparin Anti-Xa (UFH) 0.39 0.30 - 0.70 IU/ml 04/05/2025 12:54 AM EDT [facility] Blood Venipuncture / Unknown 04/05/2025 12:18 AM EDT 04/05/2025 12:37 AM EDT [employer] Pharm[employer] LAB BLOOD ORDERABLES Final R esult Performing Organization Address City/[facility]/ZIP Co de Phone Number [facility]
[address] [place] [address], * MRI Tibia Fibula Right With & [...] MD 04/04/2025 11:00 PM EDT Workstation ID: [id number] Narrative 04/04/2025 11:00 PM EDT MRI TIBIA [...] MD 04/04/2025 11:00 PM EDT Workstation ID: [id number] Leonora Shepherd MD IMG MRI ORDERABLES Final Resu lt * POC Creatinine (04/04/2025 2:49 PM EDT) Creatinine 1.10 0.60 - 1.30 mg/dL 04/07/2025 7:14 PM EDT [facility] Comment:Serial Number: [id number]: [id number] Venous Blood 04/04/2025 2:49 PM EDT 04/07/2025 7:14 PM EDT Jason Álvarez DO POINT OF CARE TEST ORDERABLES Fi nal Result [facility]
[address] [place] [address], * (ABNORMAL) CBC Auto Differential (04/04/2025 2:47 PM EDT) [facility] WBC 12.72(H) 3.40 - 10.80 10*3/mm3 04/04/2025 2:56 PM EDT [facility] RBC 5.64 4.14 - 5.80 10*6/mm3 04/04/2025 2:56 PM EDT [facility] Hemoglobin 15.3 13.0 - 17.7 g/dL 04/04/2025 2:56 PM EDT [facility] Hematocrit 47.9 37.5 - 51.0 % 04/04/2025 2:56 PM EDT [facility] MCV 84.9 79.0 - 97.0 fL 04/04/2025 2:56 PM EDT [facility] MCH 27.1 26.6 - 33.0 pg 04/04/2025 2:56 PM EDT [facility] MCHC 31.9 31.5 - 35.7 g/dL 04/04/2025 2:56 PM EDT [facility] RDW 13.1 12.3 - 15.4 % 04/04/2025 2:56 PM EDT [facility] RDW-SD 40.3 37.0 - 54.0 fl 04/04/2025 2:56 PM EDT [facility] MPV 9.4 6.0 - 12.0 fL 04/04/2025 2:56 PM EDT [facility] Platelets 232 140 - 450 10*3/mm3 04/04/2025 2:56 PM EDT [facility] Neutrophil % 74.9 42.7 - 76.0 % 04/04/2025 2:56 PM EDT [facility] Lymphocyte % 13.1(L) 19.6 - 45.3 % 04/04/2025 2:56 PM EDT [facility] Monocyte % 11.2 5.0 - 12.0 % 04/04/2025 2:56 PM EDT [facility] Eosinophil % 0.4 0.3 - 6.2 % 04/04/2025 2:56 PM EDT [facility] Basophil % 0.2 0.0 - 1.5 % 04/04/2025 2:56 PM EDT [facility] Immature Grans % 0.2 0.0 - 0.5 % 04/04/2025 2:56 PM EDT [facility] Neutrophils, Absolute 9.52(H) 1.70 - 7.00 10*3/mm3 04/04/2025 2:56 PM EDT [facility] Lymphocytes, Absolute 1.66 0.70 - 3.10 10*3/mm3 04/04/2025 2:56 PM EDT [facility] Monocytes, Absolute 1.43(H) 0.10 - 0.90 10*3/mm3 04/04/2025 2:56 PM EDT [facility] Eosinophils, Absolute 0.05 0.00 - 0.40 10*3/mm3 04/04/2025 2:56 PM EDT [facility] Basophils, Absolute 0.03 0.00 - 0.20 10*3/mm3 04/04/2025 2:56 PM EDT [facility] Immature Grans, Absolute 0.03 0.00 - 0.05 10*3/mm3 04/04/2025 2:56 PM EDT [facility] nRBC 0.0 0.0 - 0.2 /100 WBC 04/04/2025 2:56 PM EDT [facility] Blood Venipuncture / Unknown 04/04/2025 2:47 PM EDT 04/04/2025 2:52 PM EDT us Mario Crowley DO LAB BLOOD ORDERABLES Fin al Result [facility]
[address] [place] [address], * (ABNORMAL) C-reactive Protein (04/04/2025 2:47 PM EDT) C-Reactive Protein 8.57(H) 0.00 - 0.50 mg/dL 04/04/2025 3:26 PM EDT [facility] Blood Venipuncture / Unknown 04/04/2025 2:47 PM EDT 04/04/2025 2:52 PM EDT [facility] BLOOD ORDERABLES Fin al Result Performing Organization Address City/[facility]/ZIP Co de Phone Number [facility]
[address] [place] [address], * (ABNORMAL) Sedimentation Rate (04/04/2025 2:47 PM EDT) Pathologist [facility] Sed Rate 51(H) 0 - 15 mm/hr 04/04/2025 3:06 PM EDT [facility] Blood Venipuncture / Unknown 04/04/2025 2:47 PM EDT 04/04/2025 2:52 PM EDT [facility] LAB BLOOD ORDERABLES Fin al Result Performing Organization Address City/[facility] Co de Phone Number [facility]
[address] [place] [address], * Comprehensive Metabolic Panel (04/04/2025 2:47 PM EDT) Pathologist [facility] Glucose 90 65 - 99 mg/dL 04/04/2025 3:26 PM EDT [facility] BUN 18.3 6.0 - 20.0 mg/dL 04/04/2025 3:26 PM EDT [facility] Creatinine 0.94 0.76 - 1.27 mg/dL 04/04/2025 3:26 PM EDT [facility] Sodium 136 136 - 145 mmol/L 04/04/2025 3:26 PM EDT [facility] Potassium 3.8 3.5 - 5.2 mmol/L 04/04/2025 3:26 PM EDT [facility] Chloride 100 98 - 107 mmol/L 04/04/2025 3:26 PM EDT [facility] CO2 25.3 22.0 - 29.0 mmol/L 04/04/2025 3:26 PM EDT [facility] Calcium 8.6 8.6 - 10.5 mg/dL 04/04/2025 3:26 PM T [facility] Total Protein 7.3 6.0 - 8.5 g/dL 04/04/2025 3:26 PM EDT [facility] Albumin 4.1 3.5 - 5.2 g/dL 04/04/2025 3:26 PM T [facility] ALT (SGPT) 26 1 - 41 U/L 04/04/2025 3:26 PM [facility] AST (SGOT) 25 1 - 40 U/L 04/04/2025 3:26 PM T [facility] Alkaline Phosphatase 106 39 - 117 U/L 04/04/2025 3:26 PM T [facility] Total Bilirubin 1.0 0.0 - 1.2 mg/dL 04/04/2025 3:26 PM T [facility] Globulin 3.2 gm/dL 04/04/2025 3:26 PM [facility] Comment:Calculated Result A/G Ratio 1.3 g/dL 04/04/2025 3:26 PM [facility] BUN/Creatinine Ratio 19.5 7.0 - 25.0 04/04/2025 3:26 PM [facility] Anion Gap 10.7 5.0 - 15.0 mmol/L 04/04/2025 3:26 PM [facility] eGFR 102.5 >60.0 mL/min/1.7 3 04/04/2025 3:26 PM [facility] Blood Venipuncture / Unknown 04/04/2025 2:47 PM EDT 04/04/2025 2:52 PM EDT [facility] - 04/04/2025 3:26 PM EDT [...] LAB BLOOD ORDERABLES Fin al Result [facility]
[address] [place] [address], documented in this encounter Visit Diagnoses Diagnosis [...] BPA Driven Protocol Open Order & [facility] Electrolyte Replacement Protocol Algorithm to [...] BPA Driven Protocol Open Order & [facility] Electrolyte Replacement Protocol Algorithm to [...] Salazar, KELL)1943 (Given - Provider: Anahy Marcelino, ROOFING TILE SORTER)2129 (Canceled Entry - Provider: Anahy Marcelino ROOFING TILE SORTER - Comment: previously given) 0837 (Given - [...] Continuous Medication Order 04/09/2025 04/10/2025 04/11/2025 heparin 48779 units/250 mL (100 units/mL) in 0.45 % [...] BPA Driven Protocol Open Order & [facility] Electrolyte Replacement Protocol Algorithm to [...] documented as of this encounter Care Teams 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
--- OUTSIDE RECORDS SUMMARY | 2025-04-07 19:36 | XMS_ITS | Encounter Summary ---
Author Organization [facility] Address [address] [place] [address] Care Team Providers Care Dominatrix Name Role Phone Provider, No Known Primary Care Provider Unavail able Reason for Visit * Auth/Cert Specialty Diagnoses / Procedures Referred By Bulmaro muniz Referred To Contact Diagnoses Right BKA infection Referral ID Status Reason Start Date Expiration Date Visits Re quested Visits Authorized [id number] 1 1 Encounter Details Date Type Department Care Team (Late st Contact Info) Description 04/07/2025 8:36 PM EDT Anesthesia Event [facility] OR [address] [place] [address] Luci Alonso DO [address] [place] [address] Anesthesia Record Procedure Summary Procedure Name Responsible [...] has been completed: 1. Identification of Patient, herrera family member(s) or patient surrogate 2. Identification [...] drink = 0.6 oz pur e alcohol) [facility] Utilities Answer Date Recorded In the past 12 months has [employer], gas, oil, or water [employer] threatened to shut off services in your [...] PACU on O2NC, breathing comfortably. Report to CAN WASHER at bedside. VSS. * Anesthesia Procedure Notes [...] Musculoskeletal Abdominal Substance History - negative use PRODUCT DESIGN MANAGER Other ROS/Med Hx Other: Eliquis 04/04/25 Hgb 14.7 k 43.2 Factor 2 on eliquis +gerd Anesthesia Plan ASA 3 - emergent general Rapid sequence (Risks and benefits of general anesthesia discussed with patient (including [place], CVA, , recall,aspiration, oropharyngeal/dental damage), questions answered, agreeable to proceed. ) intravenous induction Anesthetic plan, risks, benefits, and alternatives have been provided, discussed and informed consent has been obtained with: patient. Plan discussed with BIOMEDICAL SCIENTIST. CODE STATUS: Code Status (Patient has no [...] documented as of this encounter Care Teams Dominatrix Relationship Specialty Start Date End Date Provider, No Known [place] [address] PCP - General 05/09/23 documented as of this encounter
--- OUTSIDE RECORDS SUMMARY | 2025-04-08 13:45 | XMS_ITS | Encounter Summary ---
[facility] Address [address] [place] [address] Care Team Providers Care Donation Worker Name Role Phone Provider, No Known Primary Care Provider Unavail able Reason for Visit * Reason Comments Leg Swelling * Auth/Cert Specialty Diagnoses / Procedures Referred By Contac t Referred To Contact Diagnoses Right BKA infection Referral ID Status Reason Start Date Expiration Date Visits Re quested Visits Authorized [id number] 1 1 Encounter Details Date Type Department Care Team (Late st Contact Info) Description 04/08/2025 2:45 PM EDT - 04/08/2025 4:04 PM EDT Surgery [facility] OR [address] [place] [address] Sushil Dean Jr., MD [address] [place] [address] [address] [id number] LEG DEBRIDEMENT AND IRRIGATION Social History Tobacco Use Types Packs/Day Years Used Date Smoking Tobacco: Never Smokeless Tobacco: Never Tobacco Cessation:Counseling Given: Not Answered Alcohol Use Standard Drinks/Week Comments Not Currently 0 (1 standard drink = 0.6 oz pur e alcohol) [facility] Utilities Answer Date Recorded In the past 12 months has [employer] electric, gas, oil, or water company threatened [...] or training? Not on file Preferred Language Malian 04/07/2025 Sex and Gender Information Value Date [...] 2:25 PM EDT Cherri Grimm RN * [place] Suicide Severity Rating Scale (Screener/Recent Self-Report) Question [...] from the original note were not included. [facility] Medicine Services DISCHARGE SUMMARY Patient [...] Date/Time Wound Culture - Swab, Leg, Right [[id number]] (Abnormal) (Susceptibility) Collected: 04/07/252106 Lab Status: Final [...] Units Date/Time FL C Arm During Surgery [[id number]] Resulted: 04/07/252137 Updated: 04/07/252137 Narrative: This procedure was auto-finalized with no dictation required. MRI Tibia Fibula Right With & Without Contrast [[id number]] Collected: 04/07/25 0938 Updated: 04/07/25 1001 Narrative: [...] Buenrostro 04/07/2025 9:58 AM EDT Workstation ID: [id number] MRI Tibia Fibula Right With & Without Contrast [[id number]] Collected: 04/04/252256 Updated: 04/04/252302 Narrative: MRI TIBIA [...] represent a small area of phlegmonous change ([id number] image 10) measuring approximately 1.6 cm which [...] MD 04/04/2025 11:00 PM EDT Workstation ID: [id number] Pending Labs Order Current Status Fungus Culture [...] Male) Date of 1980 Social Security Number [id number] [place] [address] [place] [address] Uatsdin Unknown Marital Status Unknown Admission Date 04/04/2025 Admission Type Emergency Admitting Provider Jadyn Richardson DO Attending Provider Jadyn Richardson DO Department, Room/Bed [facility] 5G, S565/1 Discharge Date Discharge Disposition Discharge Destination Attending Provider: Jadyn Richardson DO Allergies: Ceftin [Cefuroxime], Keflex [Cephalexin], Latex Isolation: None Infection: MRSA (05/11/23) Code Status: CPR Ht: 180.3 cm (71 ) Wt: 134 kg (295 lb) Admission Cmt: None 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 Insurance as of 04/04/2025 Primary Coverage Payor Plan Insurance Group Employer/Plan Group [place] [id number] Payor Plan Address Payor Plan Phone Number Payor Plan Fax Number Effective Dates [employer] [address] [address] 08/10/2023 - None Entered Formerly [facility] [address] Subscriber Name Subscriber Date Member ID WON DENNIS 1980 [id number] Emergency Contacts Tourist Information Officer (Rel.) Home Phone Work Phone Mobile Phone Avril Dennis (Spouse) -- -- [phone] Robert Hackett (Relative) -- -- [phone] [facility] [address] [facility] [address] Patient: ROOM: [facility] Won Dennis [address] [place] [place] [address] : 1980 SSN: [id number] Sex: M PCP: Provider, No Known Emergency Contact Information Name Relation Home Work Mobile Avril Dennis Spouse [phone] Other Contacts Name Relation Home Work Mobile Robert Hackett Relative [phone] INSURANCE PAYOR PLAN GROUP # SUBSCRIBER ID Primary: Secondary: MEDICARE [place] [id number] Admitting Diagnosis: 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 He is known to Dr. Dean. [...] wound 05/09/25. HDS, on Heparin gtt. Currently [facility] has been asked to manage the [...] puff, 2 puff, Inhalation, BID - RT, Suhsil Dean Jr., MD, 2 puff at 04/09/25 [...] Jr., MD, 20 mg at 04/09/25906 heparin 62234 units/250 mL (100 units/mL) in 0.45 % [...] 0.9 % 50 mL IVPB Ordering Provider: Sushli Dean Jr., MD 8 mg/kg ?? 98.8 [...] vancomycin 2750 mg/500 mL 0.9% NS IVPB ([facility]) Ordering Provider: Mario Crowley, DO 20 [...] Units Date/Time FL C Arm During Surgery [[id number]] Resulted: 04/07/252137 Updated: 04/07/252137 Narrative: This procedure was auto-finalized with no dictation required. MRI Tibia Fibula Right With & Without Contrast [[id number]] Collected: 04/07/2538 Updated: 04/07/25 1001 Narrative: MRI [...] Buenrostro 04/07/2025 9:58 AM EDT Workstation ID: [id number] Impression: Recurrent Right BKA stump abscess/cellulitis- this [...] discussed his disposition with the pharmacist at [facility] today. I will sign off Outpatient orders: 1. Outpatient intravenous antibiotic therapy: Daptomycin 800 mg IV daily to be supplied by [facility] 2. Home health to perform [...] Date/Time Wound Culture - Swab, Leg, Right [[id number]] (Abnormal) (Susceptibility) Collected: 04/07/252106 Lab Status: Final [...] Row Name 04/06/25 1143 Sit-Stand Transfer Sit-Stand Mono (Transfers) modified independence - Comment, (Sit-Stand Transfer) Pt stood from recliner. Not holding onto walker, pt able to pull his pants up while balancing on his one leg. -LM Row Name 04/06/25 1143 Gait/Stairs (Locomotion) Mono Level (Gait) modified independence - Distance in [...] Nurse Physical Therapy Education Title: PT OT FIRE MANAGEMENT TECHNICIAN Therapies (Done) Topic: Physical Therapy (Done) [...] Description Service Date Service Provider Modifiers Qty [id number] PT EVAL LOW COMPLEXITY 3 04/06/2025 Susan [...] mg Daily 04/05/2025 -- Route: Oral heparin 55900 units/250 mL (100 units/mL) in 0.45 % [...] 22 [facility] [address], [address] [facility]ly [facility], [address] Please schedule at [phone] VONDA Garcia 04/11/25 08:32 EDT Cosigned by Sushil Dean Jr., MD at 04/19/2025 10:33 AM EDT Associated attestation - Sushil Dean Jr., MD - 04/19/2025 10:33 AM EDT I have reviewed this documentation and agree. * Rosario Hill APRN - 04/10/2025 1:24 PM EDT Images from the original note were not included. [facility] Medicine Services PROGRESS NOTE Patient [...] Date/Time Wound Culture - Swab, Leg, Right [[id number]] (Abnormal) (Susceptibility) Collected: 04/07/252106 Lab Status: Final [...] mg Daily 04/05/2025 -- Route: Oral heparin 07769 units/250 mL (100 units/mL) in 0.45 % [...] 22 [facility] [address] [facility], [address] [facility], [address] Please schedule at [phone] VONDA Garcia 04/10/25 09:01 EDT Cosigned by Sushil Dean Jr., MD at 04/19/2025 10:33 AM EDT Associated attestation - Sushil Dean Jr., MD - 04/19/2025 10:33 AM EDT I have reviewed this documentation and agree. * Carlton Mead MD - 04/10/2025 7:38 AM EDT Images from the original note were not included. INFECTIOUS DISEASE Progress Note Won Dennis 1980 [id number] Date of Consult: 04/10/2025 Admission Date: 04/04/2025 [...] which prompted him to seek treatment at [facility]. He is known to Dr. Dean. [...] wound 05/09/25. HDS, on Heparin gtt. Currently [facility] has been asked to manage the [...] IRRIGATION; Surgeon: Sushil Dean Jr., MD; Location: [facility]; Service: Orthopedics; Laterality: Right; PLACEMENT OF WOUND VAC Right 04/07/2025 Procedure: WOUND VACUUM ASSISTED CLOSURE; Surgeon: Sushil Dean Jr., MD; Location: [facility]; Service: Orthopedics; Laterality: Right; WOUND CLOSURE [...] Jr., MD, 20 mg at 04/09/25906 heparin 72517 units/250 mL (100 units/mL) in 0.45 % [...] Units Date/Time FL C Arm During Surgery [[id number]] Resulted: 04/07/252137 Updated: 04/07/252137 Narrative: This procedure was auto-finalized with no dictation required. MRI Tibia Fibula Right With & Without Contrast [[id number]] Collected: 04/07/25937 Updated: 04/07/25 100 Narrative: MRI [...] Buenrostro 04/07/2025 9:58 AM EDT Workstation ID: [id number] Impression: Recurrent Right BKA stump abscess/cellulitis- this [...] discussed his disposition with the pharmacist at [facility] today. I will sign off Outpatient orders: 1. Outpatient intravenous antibiotic therapy: Daptomycin 800 mg IV daily to be supplied by [facility] 2. Home health to perform [...] 04/10/2025 07:38 EDT * Larisa Hamilton [facility] - 04/10/2025 7:17 AM [...] from the original note were not included. [facility] Medicine Services PROGRESS NOTE Patient [...] Date/Time Wound Culture - Swab, Leg, Right [[id number]] (Abnormal) Collected: 04/07/252106 Lab Status: Preliminary result [...] Álvarez DO 04/09/25 * Larisa Hamilton [facility] - 04/09/2025 11:36 AM [...] -- Admin Instructions: Open Order & Select [facility] Electrolyte Replacement Protocol Algorithm to View [...] mg Daily 04/05/2025 -- Route: Oral heparin 00234 units/250 mL (100 units/mL) in 0.45 % [...] -- Admin Instructions: Open Order & Select [facility] Electrolyte Replacement Protocol Algorithm to View [...] radiographs [facility] [address] [facility], [address] [facility], [address] Please schedule at [phone] VONDA Garcia 04/09/25 09:18 EDT Cosigned by Sushil Dean Jr., MD at 04/19/2025 10:33 AM EDT Associated attestation - Sushil Dean Jr., MD - 04/19/2025 10:33 AM EDT I have reviewed this documentation and agree. * Carlton Mead MD - 04/09/2025 8:25 AM EDT Images from the original note were not included. INFECTIOUS DISEASE Progress Note Won Dennis 1980 [id number] Date of Consult: 04/09/2025 Admission Date: 04/04/2025 [...] which prompted him to seek treatment at [facility]. He is known to Dr. Dean. [...] wound 05/09/25. HDS, on Heparin gtt. Currently [facility] has been asked to manage the [...] CLOSURE; Surgeon: Sushil Dean Jr., MD; Location: [facility] OR; Service: Orthopedics; Laterality: Right; History [...] MD, 20 mg at 04/08/25 0800 heparin 83752 units/250 mL (100 units/mL) in 0.45 % [...] 0.4 mg, Sublingual, Q5 Min PRN, Sushil Dena Jr., MD ondansetron ODT (ZOFRAN-ODT) disintegrating tablet [...] Units Date/Time FL C Arm During Surgery [[id number]] Resulted: 04/07/252137 Updated: 04/07/252137 Narrative: This procedure was auto-finalized with no dictation required. MRI Tibia Fibula Right With & Without Contrast [[id number]] Collected: 04/07/25 0938 Updated: 04/07/25 1001 Narrative: [...] Chitra 04/07/2025 9:58 AM EDT Workstation ID: [id number] Impression: Recurrent Right BKA stump abscess/cellulitis- this [...] from the original note were not included. [facility] Medicine Services PROGRESS NOTE Patient [...] Buenrostro 04/07/2025 9:58 AM EDT Workstation ID: [id number] I have personally reviewed the therapy plans: [...] Álvarez, DO 04/08/25 * Hamilton, Larisa, [facility] - 04/08/2025 11:48 AM [...] -- Admin Instructions: Open Order & Select [facility] Electrolyte Replacement Protocol Algorithm to View [...] mg Daily 04/05/2025 -- Route: Oral heparin 11932 units/250 mL (100 units/mL) in 0.45 % [...] INFECTIOUS DISEASE Progress Note Won Dennis 1980 [id number] Date of Consult: 04/08/2025 Admission Date: 04/04/2025 [...] which prompted him to seek treatment at [facility]. He is known to Dr. Dean. [...] wound 05/09/25. HDS, on Heparin gtt. Currently [facility] has been asked to manage the [...] IRRIGATION; Surgeon: Sushil Dean Jr., MD; Location: [facility]; Service: Orthopedics; Laterality: Right; PLACEMENT OF WOUND VAC Right 04/07/2025 Procedure: WOUND VACUUM ASSISTED CLOSURE; Surgeon: Sushil Dean Jr., MD; Location: [facility]; Service: Orthopedics; Laterality: Right; History [...] Oral, Q6H PRN, 500 mg at 04/06/25 6664 OR acetaminophen (TYLENOL) 160 MG/5ML oral solution [...] Jr., MD, 20 mg at 04/07/25950 heparin 61307 units/250 mL (100 units/mL) in 0.45 % [...] vancomycin 2750 mg/500 mL 0.9% NS IVPB ([facility]) Ordering Provider: Mario Crowley, DO 20 [...] Units Date/Time FL C Arm During Surgery [[id number]] Resulted: 04/07/252137 Updated: 04/07/252137 Narrative: This procedure was auto-finalized with no dictation required. MRI Tibia Fibula Right With & Without Contrast [[id number]] Collected: 04/07/25 0938 Updated: 04/07/25 1001 Narrative: [...] Buenrostro 04/07/2025 9:58 AM EDT Workstation ID: [id number] Impression: Right BKA stump cellulitis- s/p BKA with multiple surgical interventions with Known MRSA 05/09/2025. (Treated by ID in [place] Dr. Harris). Dr. Torres treated him with [...] from the original note were not included. [facility] Medicine Services PROGRESS NOTE Patient [...] Buenrostro 04/07/2025 9:58 AM EDT Workstation ID: [id number] I have personally reviewed the therapy plans: [...] DO Preeti 04/07/25 * Larisa Hamilton, [facility] - 04/07/2025 11:56 AM [...] INFECTIOUS DISEASE Progress Note Won Dennis 1980 [id number] Date of Consult: 04/07/2025 Admission Date: 04/04/2025 [...] which prompted him to seek treatment at [facility]. He is known to Dr. Dean. [...] wound 05/09/25. HDS, on Heparin gtt. Currently [facility] has been asked to manage the [...] mg, 10 mg, Rectal, Daily PRN, Leonora Shpeherd MD budesonide-formoterol (SYMBICORT) 160-4.5 MCG/ACT inhaler 2 [...] MD, 20 mg at 04/06/25 0900 heparin 22055 units/250 mL (100 units/mL) in 0.45 % NaCl infusion, 18 Units/kg/hr, Intravenous, Titrated, Cherri Beatty, [facility], Last Rate: 24.1 mL/hr [...] 40 mL, 40 mL, Intravenous, PRN, Leonora hSepherd MD tamsulosin (FLOMAX) 24 hr capsule 0.4 [...] With & Without Contrast - In process [[id number]] Resulted: 04/07/25828 Updated: 04/07/25828 This result has not been signed. Information might be incomplete. MRI Tibia Fibula Right With & Without Contrast [[id number]] Collected: 04/04/252256 Updated: 04/04/253 Narrative: MRI TIBIA [...] represent a small area of phlegmonous change ([id number] image 10) measuring approximately 1.6 cm which [...] MD 04/04/2025 11:00 PM EDT Workstation ID: [id number] Impression: Right BKA stump cellulitis- s/p BKA with multiple surgical interventions with Known MRSA 05/09/2025. (Treated by ID in [place] Dr. Harris). Dr. Torres treated him with [...] -- Admin Instructions: Open Order & Select [facility] Electrolyte Replacement Protocol Algorithm to View [...] mg Daily 04/05/2025 -- Route: Oral heparin 76457 units/250 mL (100 units/mL) in 0.45 % [...] -- Admin Instructions: Open Order & Select [facility] Electrolyte Replacement Protocol Algorithm to View [...] 04/07/25 06:07 EDT * Cherri Beatty [facility] - 04/06/2025 1:47 PM [...] from the original note were not included. [facility] Medicine Services PROGRESS NOTE Patient [...] MD 04/04/2025 11:00 PM EDT Workstation ID: [id number] I have personally reviewed the therapy plans: [...] mg Daily 04/05/2025 -- Route: Oral heparin 58579 units/250 mL (100 units/mL) in 0.45 % [...] -- Admin Instructions: Open Order & Select [facility] Electrolyte Replacement Protocol Algorithm to View [...] -- Admin Instructions: Open Order & Select [facility] Electrolyte Replacement Protocol Algorithm to View [...] INFECTIOUS DISEASE follow up. Won Dennis 1980 [id number] Date of Consult: 04/06/2025 Admission Date: 04/04/2025 [...] which prompted him to seek treatment at [facility]. He is known to Dr. Dean. [...] wound 05/09/25. HDS, on Heparin gtt. Currently [facility] has been asked to manage the [...] MD, 20 mg at 04/06/25 0900 heparin 00135 units/250 mL (100 units/mL) in 0.45 % NaCl infusion, 18 Units/kg/hr, Intravenous, Titrated, Cherri Beatty [facility], Last Rate: 24.1 mL/hr at 04/06/25 1420, 18 Units/kg/hr at 04/06/25 1420 hydroCHLOROthiazide tablet 12.5 mg, 12.5 mg, Oral, Daily, Leonora Shepherd MD, 12.5 mg at 859 HYDROmorphone (DILAUDID) injection 0.5 mg, 0.5 mg, Intravenous, Q2H PRN, Loenora Shepherd MD, 0.5 mg at 04/05/25 0036 [...] Tibia Fibula Right With & Without Contrast [[id number]] Collected: 04/04/252256 Updated: 04/04/252302 Narrative: MRI TIBIA [...] represent a small area of phlegmonous change ([id number] image 10) measuring approximately 1.6 cm which [...] MD 04/04/2025 11:00 PM EDT Workstation ID: [id number] Impression: Right BKA stump cellulitis- s/p BKA with multiple surgical interventions with Known MRSA 05/09/2025. (Treated by ID in [place] Dr. Harris). Dr. Torres treated him with [...] from the original note were not included. [facility] Medicine Services PROGRESS NOTE Patient [...] MD 04/04/2025 11:00 PM EDT Workstation ID: [id number] I have personally reviewed the therapy plans: [...] from the original note were not included. 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 male admitted to 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 He has [...] was evaluated in the emergency department in [place], was discharged with instructions for follow-up. He [...] mouth Daily. 04/03/2025 Morning Lactobacillus-Inulin ([facility]) capsule Take 200 mg by mouth [...] MD 04/04/2025 11:00 PM EDT Workstation ID: [id number] Assessment: Right BKA infection 44-year-old male with [...] DISEASE CONSULT/INITIAL HOSPITAL VISIT Won Dennis 1980 [id number] Date of Consult: 04/05/2025 Admission Date: 04/04/2025 [...] which prompted him to seek treatment at [facility]. He is known to Dr. Dean. [...] wound 05/09/25. HDS, on Heparin gtt. Currently [facility] has been asked to manage the [...] 325 mg, 325 mg, Rectal, Q6H PRN, Loenora Shepherd MD atorvastatin (LIPITOR) tablet 40 mg, 40 mg, Oral, Nightly, Leonora Shepherd MD, 40 mg at 04/04/25 4550 sennosides-docusate (PERICOLACE) 8.6-50 MG per tablet 2 [...] MD, 20 mg at 04/05/25 09 heparin 02455 units/250 mL (100 units/mL) in 0.45 % [...] Leonora Shepherd MD, 10 mg at 04/04/25 4233 Pharmacy to Dose Heparin, , Not Applicable, [...] Tibia Fibula Right With & Without Contrast [[id number]] Collected: 04/04/252256 Updated: 04/04/252302 Narrative: MRI TIBIA [...] represent a small area of phlegmonous change (bqyzvg17 image 10) measuring approximately 1.6 cm which [...] MD 04/04/2025 11:00 PM EDT Workstation ID: [id number] Impression: Right BKA stump cellulitis- s/p BKA with multiple surgical interventions with Known MRSA 05/09/2025. (Treated by ID in [place] Dr. Harris). Dr. Torres treated him with [...] Recent Flowsheet Documentation Taken 04/08/20253 by Bob Rosebnerg RN Pain Management Interventions: pain medication given [...] MD - 04/08/2025 3:51 PM EDT [facility] OPERATIVE REPORT PATIENT NAME: Won Dennis DATE OF : 1980 PREOP DIAGNOSIS: Right Right below-knee amputation infection POSTOP DIAGNOSIS: Same. PROCEDURE: Right Right 50413: Secondary closure below-knee amputation SURGEON: Sushil Dean MD OPERATIVE TEAM: Irrigation Service Technician: Susi Grullon RN Scrub Person: Mary Paredes Scrub Person Extra: Hortencia Toribio Other: Katt Gotti RN; Charis Neville RN ANESTHETIST: Anesthesiologist: Ulises Hoffman MD INJECTION MOLDING MACHINE SETTER: Stan Casillas CRNA Student Nurse Spindle Sander: Karol Albert SRNA ANESTHESIA: Choice ESTIMATED BLOOD [...] PM EDT [facility], [place] [address] OPERATIVE REPORT PATIENT NAME: Won Dennis DATE OF : 1980 PREOP DIAGNOSIS: Right Right below knee amputation stump infection POSTOP DIAGNOSIS: Same. PROCEDURE: Right Right 11082: Incision and drainage of surgical site infection 52769: Debridement of skin, subcutaneous tissue, muscle 02274: Wound vacuum-assisted closure SURGEON: Sushil Dean MD OPERATIVE TEAM: Irrigation Service Technician: Anum Sanchez RN Scrub Person: Hortencia Toribio; Gerald Ivey PROTEIN CHEMIST: Anesthesiologist: Luci Alonso DO ANESTHESIA: General ESTIMATED [...] ago swellling of the area. seen at [facility] yesterday for CT and US, here [...] this chart in the absence of a lead manufacturing technician. No orders to display RADIOLOGY: [x] [...] is discharging home with outpatient infusion at [facility]. He has an appointment with [facility] at 8:00 am tomorrow. They will do PICC line dressing changes. DEBRA has spoke with Dena at [facility] today multiple times to get setup due [...] with KELLEE and given themhis Medicare number [id number], she sent it to Admission. DEBRA spoke with Kerri, with [facility], and explained that he had Medicare A and B. However, it will not cover home infusion. It will be $64.00 a day out of packet. Patients can go to the Infusion center at [facility], and it will cover the cost as an outpatient. He will need to go there every day for infusion. They will be able to do the patients' PICC line dressing changes and lab work. DEBRA called Dena [facility] Outpatient infusion center they can accept patient and start him. He is known for their facility. The Facility will need to run it through his insurance first. CM faxed the orders over to [facility] at [phone]. CM will follow up with them tomorrow at [facility] to make sure they received the [...] 04/09/2025 2:51 PM EDT Continued Stay Note [facility] Patient Name: Won Dennis Today's Date: 04/09/2025 Admit Date: 04/04/2025 Plan: Home Discharge Plan Row Name 04/09/25 1311 Plan Plan Home Patient/Family in Agreement with Plan yes Plan Comments CM spoke with patient at bedside today. Wheelchair from [employer] is at bedside. 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 He is not current with home health services. PCP is Dr. Jordan. Insurance is [employer] [place]. Patient discharge plan is home with priavte transport. CM will follow for any discharge needs. Final Discharge Disposition Code 01 - home or self-care Continued Care and Services - Admitted Since 04/04/2025 No active coordination exists. Demographic Summary Row Name 04/07/25 1143 General Information Arrived From hospital Preferred Language Malian Functional Status Row Name 04/07/25 1143 Functional [...] 3:4 0 PM EDT Right BKA infection [place] SEC ABDOMINAL WALL SUTURE EVISCERATION/DEHSN 04/08/2025 3:20 [...] CBC Auto Differential (04/11/2025 3:40 AM EDT) [facility] WBC 7.87 3.40 - 10.80 10*3/mm3 04/11/2025 4:02 AM EDT [facility] RBC 4.70 4.14 - 5.80 10*6/mm3 04/11/2025 4:02 AM [facility] Hemoglobin 12.8(L) 13.0 - 17.7 g/dL 04/11/2025 4:02 AM [facility] Hematocrit 40.5 37.5 - 51.0 % 04/11/2025 4:02 AM [facility] MCV 86.2 79.0 - 97.0 fL 04/11/2025 4:02 AM [facility] MCH 27.2 26.6 - 33.0 pg 04/11/2025 4:02 AM [facility] MCHC 31.6 31.5 - 35.7 g/dL 04/11/2025 4:02 AM [facility] RDW 12.9 12.3 - 15.4 % 04/11/2025 4:02 AM [facility] RDW-SD 40.5 37.0 - 54.0 fl 04/11/2025 4:02 AM [facility] MPV 9.2 6.0 - 12.0 fL 04/11/2025 4:02 AM [facility] Platelets 267 140 - 450 10*3/mm3 04/11/2025 4:02 AM [facility] Neutrophil % 59.5 42.7 - 76.0 % 04/11/2025 4:02 AM [facility] Lymphocyte % 26.3 19.6 - 45.3 % 04/11/2025 4:02 AM [facility] Monocyte % 9.3 5.0 - 12.0 % 04/11/2025 4:02 AM [facility] Eosinophil % 4.1 0.3 - 6.2 % 04/11/2025 4:02 AM [facility] Basophil % 0.4 0.0 - 1.5 % 04/[facility] Immature Grans % 0.4 0.0 - 0.5 % 04/11/2025 4:02 AM EDT [facility] Neutrophils, Absolute 4.69 1.70 - 7.00 10*3/mm3 04/11/2025 4:02 AM EDT [facility] Lymphocytes, Absolute 2.07 0.70 - 3.10 10*3/mm3 04/11/2025 4:02 AM EDT [facility] Monocytes, Absolute 0.73 0.10 - 0.90 10*3/mm3 04/11/2025 4:02 AM EDT [facility] Eosinophils, Absolute 0.32 0.00 - 0.40 10*3/mm3 04/11/2025 4:02 AM EDT [facility] Basophils, Absolute 0.03 0.00 - 0.20 10*3/mm3 04/11/2025 4:02 AM EDT [facility] Immature Grans, Absolute 0.03 0.00 - 0.05 10*3/mm3 04/11/2025 4:02 AM EDT [facility] nRBC 0.0 0.0 - 0.2 /100 WBC 04/11/2025 4:02 AM EDT [facility] Blood Venipuncture / Unknown 04/11/2025 3:40 AM EDT 04/11/2025 3:59 AM EDT us Sushil Dean Jr., MD LAB BLOOD ORDERABLES Fi nal Result [facility]
[address] [place] [address], * (ABNORMAL) Comprehensive Metabolic Panel (04/11/2025 3:40 AM EDT) Glucose 108(H) 65 - 99 mg/dL 04/11/2025 4:19 AM EDT [facility] BUN 12.5 6.0 - 20.0 mg/dL 04/11/2025 4:19 AM EDT [facility] Creatinine 0.68(L) 0.76 - 1.27 mg/dL 04/11/2025 4:19 AM [facility] Sodium 140 136 - 145 mmol/L 04/11/2025 4:19 AM [facility] Potassium 3.8 3.5 - 5.2 mmol/L 04/11/2025 4:19 AM [facility] Chloride 105 98 - 107 mmol/L 04/11/2025 4:19 AM [facility] CO2 28.2 22.0 - 29.0 mmol/L 04/11/2025 4:19 AM [facility] Calcium 8.2(L) 8.6 - 10.5 mg/dL 04/11/2025 4:19 AM [facility] Total Protein 6.1 6.0 - 8.5 g/dL 04/11/2025 4:19 AM [facility] Albumin 3.1(L) 3.5 - 5.2 g/dL 04/11/2025 4:19 AM [facility] ALT (SGPT) 52(H) 1 - 41 U/L 04/11/2025 4:19 AM [facility] AST (SGOT) 40 1 - 40 U/L 04/11/2025 4:19 AM [facility] Alkaline Phosphatase 99 39 - 117 U/L 04/11/2025 4:19 AM [facility] Total Bilirubin 0.2 0.0 - 1.2 mg/dL 04/11/2025 4:19 AM [facility] Globulin 3.0 gm/dL 04/11/2025 4:19 AM [facility] Comment:Calculated Result A/G Ratio 1.0 g/dL 04/11/2025 4:19 AM [facility] BUN/Creatinine Ratio 18.4 7.0 - 25.0 04/11/2025 4:19 AM [facility] Anion Gap 6.8 5.0 - 15.0 mmol/L 04/11/2025 4:19 AM [facility] eGFR 117.5 >60.0 mL/min/1.7 3 04/11/2025 4:19 AM EDT [facility] Blood Venipuncture / Unknown 04/11/2025 3:40 AM EDT 04/11/2025 3:56 AM EDT [facility] - 04/11/2025 4:19 AM [...] LAB BLOOD ORDERABLES Final Result [facility]
[address] [place] [address], * (ABNORMAL) CBC Auto Differential (04/10/2025 3:46 AM EDT) WBC 9.60 3.40 - 10.80 10*3/mm3 04/10/2025 3:56 AM EDT [facility] RBC 4.67 4.14 - 5.80 10*6/mm3 04/10/2025 3:56 AM EDT [facility] Hemoglobin 12.9(L) 13.0 - 17.7 g/dL 04/10/2025 3:56 AM EDT [facility] Hematocrit 40.1 37.5 - 51.0 % 04/10/2025 3:56 AM EDT [facility] MCV 85.9 79.0 - 97.0 fL 04/10/2025 3:56 AM EDT [facility] MCH 27.6 26.6 - 33.0 pg 04/10[facility]25 [facility] MCHC 32.2 31.5 - 35.7 g/dL 04/10/2025 3:56 AM EDT [facility] RDW 12.9 12.3 - 15.4 % 04/10/2025 3:[facility] RDW-SD 40.5 37.0 - 54.0 fl 04/10/2025 3:56 AM EDT [facility] MPV 9.5 6.0 - 12.0 fL 04/10/2025 3:56 AM EDT [facility] Platelets 227 140 - 450 10*3/mm3 04/10/2025 3:56 AM [facility] Neutrophil % 59.1 42.7 - 76.0 % 04/10/2025 3:56 AM [facility] Lymphocyte % 29.0 19.6 - 45.3 % 04/10/2025 3:56 [facility] Monocyte % 8.1 5.0 - 12.0 % 04/10/2025 3:56 AM [facility] Eosinophil % 3.2 0.3 - 6.2 % 04/10/2025 3:56 AM [facility] Basophil % 0.4 0.0 - 1.5 % 04/10/2025 3:56 AM [facility] Immature Grans % 0.2 0.0 - 0.5 % 04/10/2025 3:56 [facility] Neutrophils, Absolute 5.67 1.70 - 7.00 10*3/mm3 04/10/2025 3:56 [facility] Lymphocytes, Absolute 2.78 0.70 - 3.10 10*3/mm3 04/10/2025 3:56 [facility] Monocytes, Absolute 0.78 0.10 - 0.90 10*3/mm3 04/10/2025 3:56 [facility] Eosinophils, Absolute 0.31 0.00 - 0.40 10*3/mm3 04/10/2025 3:56 AM EDT [facility] Basophils, Absolute 0.04 0.00 - 0.20 10*3/mm3 04/10/2025 3:56 AM EDT [facility] Immature Grans, Absolute 0.02 0.00 - 0.05 10*3/mm3 04/10/2025 3:56 AM EDT [facility] nRBC 0.0 0.0 - 0.2 /100 WBC 04/10/2025 3:56 AM EDT [facility] Blood Venipuncture / Unknown 04/10/2025 3:46 AM EDT 04/10/2025 3:53 AM EDT us Jason Álvarez DO LAB BLOOD ORDERABLES Final Resul t [facility]
[address] [place] [address], * (ABNORMAL) Basic Metabolic Panel (04/10/2025 3:46 AM EDT) Glucose 125(H) 65 - 99 mg/dL 04/10/2025 4:20 AM EDT [facility] BUN 15.9 6.0 - 20.0 mg/dL 04/10/2025 4:20 AM EDT [facility] Creatinine 0.77 0.76 - 1.27 mg/dL 04/10/2025 4:20 AM EDT [facility] Sodium 137 136 - 145 mmol/L 04/10/2025 4:20 AM EDT [facility] Potassium 3.9 3.5 - 5.2 mmol/L 04/10/2025 4:20 AM EDT [facility] Chloride 102 98 - 107 mmol/L 04/10/2025 4:20 AM EDT [facility] CO2 26.9 22.0 - 29.0 mmol/L 04/10/2025 4:20 AM EDT [facility] Calcium 7.9(L) 8.6 - 10.5 mg/dL 04/10/2025 4:20 AM EDT [facility] BUN/Creatinine Ratio 20.6 7.0 - 25.0 04/10/2025 4:20 AM EDT [facility] Anion Gap 8.1 5.0 - 15.0 mmol/L 04/10/2025 4:20 AM EDT [facility] eGFR 113.2 >60.0 mL/min/1.7 3 04/10/2025 4:20 AM EDT [facility] Blood Venipuncture / Unknown 04/10/2025 3:46 AM EDT 04/10/2025 3:52 AM EDT Narrative [facility] - 04/10/2025 4:20 AM EDT GFR [...] BLOOD ORDERABLES Final Resul t [facility]
[address] [place] [address], * Heparin Anti-Xa (04/10/2025 3:46 AM EDT) Heparin Anti-Xa (UFH) 0.35 0.30 - 0.70 IU/ml 04/10/2025 4:23 AM EDT [facility] Blood Venipuncture / Unknown 04/10/2025 3:46 AM EDT 04/10/2025 3:53 AM EDT Larisa Hamilton [facility] LAB BLOOD ORDERABLES Final R esult [facility]
[address] [place] [address], * Heparin Anti-Xa (04/09/2025 10:05 AM EDT) Pathologist [facility] Heparin Anti-Xa (UFH) 0.36 0.30 - 0.70 IU/ml 04/09/2025 11:12 AM EDT [facility] Blood Venipuncture / Unknown 04/09/2025 10:05 AM EDT 04/09/2025 10:47 AM EDT Larisa Hamilton [facility] LAB BLOOD ORDERABLES Final R esult [facility]
[address] [place] [address], * (ABNORMAL) CBC Auto Differential (04/09/2025 4:18 AM EDT) Pathologist [facility] WBC 11.00(H) 3.40 - 10.80 10*3/mm3 04/09/2025 4:50 AM EDT [facility] RBC 4.70 4.14 - 5.80 10*6/mm3 04/09/2025 4:50 AM EDT [facility] Hemoglobin 13.0 13.0 - 17.7 g/dL 04/09/2025 4:50 AM EDT [facility] Hematocrit 40.4 37.5 - 51.0 % 04/09/2025 4:50 AM EDT [facility] MCV 86.0 79.0 - 97.0 fL 04/09/2025 4:50 AM EDT [facility] MCH 27.7 26.6 - 33.0 pg 04/09/2025 4:50 AM EDT [facility] MCHC 32.2 31.5 - 35.7 g/dL 04/09/2025 4:50 AM EDT [facility] RDW 12.8 12.3 - 15.4 % 04/09/2025 4:50 AM [facility] RDW-SD 39.9 37.0 - 54.0 fl 04/09/2025 4:50 AM [facility] MPV 10.0 6.0 - 12.0 fL 04/09/2025 4:50 AM [facility] Platelets 211 140 - 450 10*3/mm3 04/09/2025 4:50 AM [facility] Neutrophil % 74.8 42.7 - 76.0 % 04/09/2025 4:50 AM [facility] Lymphocyte % 15.4(L) 19.6 - 45.3 % 04/09/2025 4:50 AM [facility] Monocyte % 8.5 5.0 - 12.0 % 04/09/2025 4:50 AM [facility] Eosinophil % 0.6 0.3 - 6.2 % 04/09/2025 4:50 AM [facility] Basophil % 0.4 0.0 - 1.5 % 04/09/2025 4:50 AM [facility] Immature Grans % 0.3 0.0 - 0.5 % 04/09/2025 4:50 AM [facility] Neutrophils, Absolute 8.23(H) 1.70 - 7.00 10*3/mm3 04/09/2025 4:50 AM [facility] Lymphocytes, Absolute 1.69 0.70 - 3.10 10*3/mm3 04/09/2025 4:50 AM [facility] Monocytes, Absolute 0.94(H) 0.10 - 0.90 10*3/mm3 04/09/2025 4:50 AM [facility] Eosinophils, Absolute 0.07 0.00 - 0.40 10*3/mm3 04/09/2025 4:[facility] Basophils, Absolute 0.04 0.00 - 0.20 10*3/mm3 04/09/2025 4:50 AM EDT [facility] Immature Grans, Absolute 0.03 0.00 - 0.05 10*3/mm3 04/09/2025 4:50 AM EDT [facility] nRBC 0.0 0.0 - 0.2 /100 WBC 04/09/2025 4:50 AM EDT [facility] Blood Venipuncture / Unknown 04/09/2025 4:18 AM EDT 04/09/2025 4:31 AM EDT Sushil Dean Jr., MD LAB BLOOD ORDERABLES Fi nal Result Performing Organization Address City/[facility]/ZIP Co de Phone Number [facility]
[address] [place] [address], * Heparin Anti-Xa (04/09/2025 4:18 AM EDT) Heparin Anti-Xa (UFH) 0.41 0.30 - 0.70 IU/ml 04/09/2025 4:53 AM EDT [facility] Blood Venipuncture / Unknown 04/09/2025 4:18 AM EDT 04/09/2025 4:31 AM EDT Una LundbergD LAB BLOOD ORDERABLES Final R esult [facility]
[address] [place] [address], * (ABNORMAL) Basic Metabolic Panel (04/09/2025 4:18 AM EDT) Glucose 147(H) 65 - 99 mg/dL 04/09/2025 5:33 AM EDT [facility] BUN 23.0(H) 6.0 - 20.0 mg/dL 04/09/2025 5:33 AM EDT [facility] Creatinine 1.15 0.76 - 1.27 mg/dL 04/09/2025 5:33 AM EDT [facility] Sodium 135(L) 136 - 145 mmol/L 04/09/2025 5:33 AM EDT [facility] Potassium 4.2 3.5 - 5.2 mmol/L 04/09/2025 5:33 AM EDT [facility] Chloride 100 98 - 107 mmol/L 04/09/2025 5:33 AM EDT [facility] CO2 26.0 22.0 - 29.0 mmol/L 04/09/2025 5:33 AM EDT [facility] Calcium 8.2(L) 8.6 - 10.5 mg/dL 04/09/2025 5:33 AM EDT [facility] BUN/Creatinine Ratio 20.0 7.0 - 25.0 04/09/2025 5:33 AM EDT [facility] Anion Gap 9.0 5.0 - 15.0 mmol/L 04/09/2025 5:33 AM EDT [facility] eGFR 80.5 >60.0 mL/min/1.7 3 04/09/2025 5:33 AM EDT [facility] Blood Venipuncture / Unknown 04/09/2025 4:18 AM EDT 04/09/2025 4:29 AM EDT [facility] - 04/09/2025 5:33 AM [...] BLOOD ORDERABLES Fi nal Result [facility]
[address] [place] [address], * Wound Culture - Swab, Leg, Right (04/08/2025 3:40 PM EDT) Wound Culture No growth at 3 days ALIZA 04/11/2025 10:40 AM EDT [facility] Gram Stain Few (2+) WBCs seen 04/11/2025 10:40 AM EDT [facility] Gram Stain No organisms seen 04/11/2025 10:40 AM EDT [facility] Swab Structure of right lower limb / Unknown 04/08/2025 3:40 PM EDT 04/08/2025 8:05 PM EDT us Sushil Dean Jr., MD MICROBIOLOGY - GENERAL ORDERABLES Final Result Performing Organization Address City/[facility]/ZIP Co de Phone Number [facility]
[address] [place] [address], [facility]
[address] [place] [address], * Anaerobic Culture - Swab, Leg, Right (04/08/2025 3:40 PM EDT) Anaerobic Culture No anaerobes isolated at 5 days ALIZA 04/13/2025 7:24 AM EDT [facility] Swab Structure of right lower limb / Unknown 04/08/2025 3:40 PM EDT 04/08/2025 8:05 PM EDT us Sushil Dean Jr., MD MICROBIOLOGY - GENERAL ORDERABLES Final Result Performing Organization Address City/[facility]/ZIP Co de Phone Number [facility]
[address] [place] [address], * Scan Slide (04/08/2025 8:41 AM EDT) RBC Morphology Normal Normal 04/08/2025 11:02 AM EDT [facility] WBC Morphology Normal Normal 04/08/2025 11:02 AM EDT [facility] Platelet Estimate Adequate Normal 04/08/2025 11:02 AM EDT [facility] Clumped Platelets Present None Seen 04/08/2025 11:02 AM EDT [facility] Blood Venipuncture / Unknown 04/08/2025 8:41 AM EDT 04/08/2025 9:10 AM EDT Una Minda PharmD LAB BLOOD ORDERABLES Final R esult [facility]
[address] [place] [address], * (ABNORMAL) CBC Auto Differential (04/08/2025 8:41 AM EDT) WBC 10.07 3.40 - 10.80 10*3/mm3 04/08/2025 11:02 AM EDT [facility] RBC 5.01 4.14 - 5.80 10*6/mm3 04/08/2025 11:02 AM EDT [facility] Hemoglobin 14.0 13.0 - 17.7 g/dL 04/08/2025 11:02 AM EDT [facility] Hematocrit 42.7 37.5 - 51.0 % 04/08/2025 11:02 AM EDT [facility] MCV 85.2 79.0 - 97.0 fL 04/08/2025 11:02 AM EDT [facility] MCH 27.9 26.6 - 33.0 pg 04/08/2025 11:02 AM EDT [facility] MCHC 32.8 31.5 - 35.7 g/dL 04/08/2025 11:02 AM EDT [facility] RDW 12.6 12.3 - 15.4 % 04/08/2025 11:02 AM EDT [facility] RDW-SD 38.9 37.0 - 54.0 fl 04/08/2025 11:02 AM [facility] MPV 11.0 6.0 - 12.0 fL 04/08/2025 11:02 AM [facility] Platelets 118(L) 140 - 450 10*3/mm3 04/08/2025 11:02 AM [facility] Neutrophil % 85.1(H) 42.7 - 76.0 % 04/08/2025 11:02 AM [facility] Lymphocyte % 9.3(L) 19.6 - 45.3 % 04/08/2025 11:02 AM [facility] Monocyte % 4.6(L) 5.0 - 12.0 % 04/08/2025 11:02 AM [facility] Eosinophil % 0.3 0.3 - 6.2 % 04/08/2025 11:02 AM [facility] Basophil % 0.2 0.0 - 1.5 % 04/08/2025 11:02 AM [facility] Immature Grans % 0.5 0.0 - 0.5 % 04/08/2025 11:02 AM [facility] Neutrophils, Absolute 8.57(H) 1.70 - 7.00 10*3/mm3 04/08/2025 11:02 AM [facility] Lymphocytes, Absolute 0.94 0.70 - 3.10 10*3/mm3 04/08/2025 11:02 AM [facility] Monocytes, Absolute 0.46 0.10 - 0.90 10*3/mm3 04/08/2025 11:02 AM [facility] Eosinophils, Absolute 0.03 0.00 - 0.40 10*3/mm3 04/08/2025 11:02 AM [facility] Basophils, Absolute 0.02 0.00 - 0.20 10*3/mm3 04/08/2025 11:02 AM [facility] Immature Grans, Absolute 0.05 0.00 - 0.05 10*3/mm3 04/08/2025 11:02 AM EDT [facility] nRBC 0.0 0.0 - 0.2 /100 WBC 04/08/2025 11:02 AM EDT [facility] Blood Venipuncture / Unknown 04/08/2025 8:41 AM EDT 04/08/2025 9:10 AM EDT Una Perla PharmD LAB BLOOD ORDERABLES Final R esult [facility]
[address] [place] [address], * (ABNORMAL) Basic Metabolic Panel (04/08/2025 8:41 AM EDT) Glucose 125(H) 65 - 99 mg/dL 04/08/2025 9:51 AM EDT [facility] BUN 13.2 6.0 - 20.0 mg/dL 04/08/2025 9:51 AM EDT [facility] Creatinine 0.69(L) 0.76 - 1.27 mg/dL 04/08/2025 9:51 AM EDT [facility] Sodium 136 136 - 145 mmol/L 04/08/2025 9:51 AM EDT [facility] Potassium 4.6 3.5 - 5.2 mmol/L 04/08/2025 9:51 AM EDT [facility] Chloride 102 98 - 107 mmol/L 04/08/2025 9:51 AM EDT [facility] CO2 23.5 22.0 - 29.0 mmol/L 04/08/2025 9:51 AM EDT [facility] Calcium 8.4(L) 8.6 - 10.5 mg/dL 04/08/2025 9:51 AM EDT [facility] BUN/Creatinine Ratio 19.1 7.0 - 25.0 04/08/2025 9:51 AM EDT [facility] Anion Gap 10.5 5.0 - 15.0 mmol/L 04/08/2025 9:51 AM EDT [facility] eGFR 117.0 >60.0 mL/min/1.7 3 04/08/2025 9:51 AM EDT [facility] Blood Venipuncture / Unknown 04/08/2025 8:41 AM EDT 04/08/2025 9:09 AM EDT Narrative [facility] - 04/08/2025 9:51 AM EDT GFR [...] ORDERABLES Fi nal Result Performing Organization Address City/[facility]/ZIP Co de Phone Number [facility]
[address] [place] [address], * Heparin Anti-Xa (04/08/2025 8:41 AM EDT) Heparin Anti-Xa (UFH) 0.33 0.30 - 0.70 IU/ml 04/08/2025 9:40 AM EDT [facility] Blood Venipuncture / Unknown 04/08/2025 8:41 AM EDT 04/08/2025 9:10 AM EDT Sushil Dean Jr., MD LAB BLOOD ORDERABLES Fi nal Result Performing Organization Address City/[facility]/ZIP Co de Phone Number [facility]
[address] [place] [address], * FL C Arm During Surgery (04/07/2025 9:32 PM EDT) Narrative SYSTEMGENERATED, DOCUMENTATION - 04/07/2025 9:38 PM EDT This procedure was auto-finalized with no dictation required. us Sushil Dean Jr., MD IMG FLUOROSCOPY ORDERAB LES Final Result * Wound Culture - Swab, Leg, Right (04/07/2025 9:14 PM EDT) Wound Culture No growth at 3 days ALIZA 04/11/2025 10:40 AM EDT [facility] Gram Stain Occasional WBCs seen 04/11/2025 10:40 AM EDT [facility] Gram Stain No organisms seen 04/11/2025 10:40 AM EDT [facility] Swab Structure of right lower limb / Unknown Collection / Unknown 04/07/2025 9:14 PM EDT 04/08/2025 4:36 AM EDT us Sushil Dean Jr., MD MICROBIOLOGY - GENERAL ORDERABLES Final Result Performing Organization Address City/[facility]/ZIP Co de Phone Number [facility]
[address] [place] [address], [place] [phone] [facility]
[address] [place] [address], [place] [phone] * Anaerobic Culture - Swab, Leg, Right (04/07/2025 9:14 PM EDT) Anaerobic Culture No anaerobes isolated at 5 days ALIZA 04/13/2025 7:21 AM EDT [facility] Swab Structure of right lower limb / Unknown Collection / Unknown 04/07/2025 9:14 PM EDT 04/08/2025 4:36 AM EDT us Sushil Dean Jr., MD MICROBIOLOGY - GENERAL ORDERABLES Final Result [facility]
[address] [place] [address], * Anaerobic Culture - Tissue, Leg (04/07/2025 9:13 PM EDT) Anaerobic Culture No anaerobes isolated at 5 days ALIZA 04/13/2025 7:21 AM EDT [facility] Tissue Lower limb structure / Unknown Collection / Unknown 04/07/2025 9:13 PM EDT 04/08/2025 4:54 AM EDT Jason Álvarez DO MICROBIOLOGY - GENERAL ORDERABLE S Final Result Performing Organization Address [facility]/State/ZIP Co de Phone Number [facility]
[address] [place] [address], * Tissue / Bone Culture - Tissue, Leg, Right (04/07/2025 9:13 PM EDT) Tissue Culture No growth at 3 days ALIZA 04/11/2025 10:36 AM EDT [facility] Gram Stain Rare (1+) WBCs seen 04/11/2025 10:36 AM EDT [facility] Gram Stain No organisms seen 04/11/2025 10:36 AM EDT [facility] Tissue Structure of right lower limb / Unknown 04/07/2025 9:13 PM EDT 04/08/2025 4:54 AM EDT Sushil Dean Jr., MD MICROBIOLOGY - GENERAL ORDERABLES Final Result [facility]
[address] [place] [address], [facility]
[address] [place] [address], [place] [phone] * (ABNORMAL) Wound Culture - Swab, Leg, Right (04/07/2025 9:07 PM EDT) Wound Culture Light growth (2+) Staphylococcus aureus, MRSA(A) ALIZA 04/10/2025 10:38 AM EDT [facility] Comment: Methicillin resistant Staphylococcus aureus, Patient may be an isolation risk. Gram Stain Few (2+) WBCs seen 04/10/2025 10:38 AM EDT [facility] Gram Stain No organisms seen 10:38 AM EDT [facility] Swab [...] MD MICROBIOLOGY - GENERAL ORDERABLES Final Result [facility]
[address] [place] [address], [place] [phone] [facility]
[address] [place] [address], [place] [phone] * Anaerobic Culture - Swab, Leg, Right (04/07/2025 9:07 PM EDT) Anaerobic Culture No anaerobes isolated at 5 days ALIZA 04/13/2025 7:21 AM EDT [facility] Swab Structure of right lower limb / Unknown Collection / Unknown 04/07/2025 9:07 PM EDT 04/08/2025 4:36 AM EDT us Sushil Dean Jr., MD MICROBIOLOGY - GENERAL ORDERABLES Final Result [facility]
[address] [place] [address], * Heparin Anti-Xa (04/07/2025 9:10 AM EDT) Pathologist [facility] Heparin Anti-Xa ([facility]FH) 0.30 0.30 - 0.70 IU/ml 04/07/2025 10:12 AM EDT [facility] Blood Venipuncture / Unknown 04/07/2025 9:10 AM EDT 04/07/2025 9:38 AM EDT Una Perla PharmD LAB BLOOD ORDERABLES Final R esult Performing Organization Address City/[facility]/ZIP Co de Phone Number [facility]
[address] [place] [address], * (ABNORMAL) CBC Auto Differential (04/07/2025 9:10 AM EDT) Pathologist [facility] WBC 8.63 3.40 - 10.80 10*3/mm3 04/07/2025 9:50 AM EDT [facility] RBC 5.23 4.14 - 5.80 10*6/mm3 04/07/2025 9:50 AM EDT [facility] Hemoglobin 14.7 13.0 - 17.7 g/dL 04/07/2025 9:50 AM EDT [facility] Hematocrit 44.8 37.5 - 51.0 % 04/07/2025 9:50 AM EDT [facility] MCV 85.7 79.0 - 97.0 fL 04/07/2025 9:50 AM EDT [facility] MCH 28.1 26.6 - 33.0 pg 04/07/2025 9:50 AM EDT [facility] [facility] MCHC 32.8 31.5 - 35.7 g/dL 04/07/2025 9:50 AM EDT [facility] RDW 12.8 12.3 - 15.4 % 04/07/2025 9:50 AM [facility] RDW-SD 39.9 37.0 - 54.0 fl 04/07/2025 9:50 AM [facility] MPV 10.8 6.0 - 12.0 fL 04/07/2025 9:50 AM [facility] Platelets 149 140 - 450 10*3/mm3 04/07/2025 9:50 AM [facility] Neutrophil % 66.7 42.7 - 76.0 % 04/07/2025 9:50 AM [facility] Lymphocyte % 20.5 19.6 - 45.3 % 04/07/2025 9:50 AM [facility] Monocyte % 9.8 5.0 - 12.0 % 04/07/2025 9:50 AM [facility] Eosinophil % 2.1 0.3 - 6.2 % 04/07/2025 9:50 AM [facility] Basophil % 0.3 0.0 - 1.5 % 04/07/2025 9:50 AM [facility] Immature Grans % 0.6(H) 0.0 - 0.5 % 04/07/2025 9:50 AM [facility] Neutrophils, Absolute 5.75 1.70 - 7.00 10*3/mm3 04/07/2025 9:50 AM [facility] Lymphocytes, Absolute 1.77 0.70 - 3.10 10*3/mm3 04/07/2025 9:50 AM [facility] Monocytes, Absolute 0.85 0.10 - 0.90 10*3/mm3 04/07/2025 9:50 AM [facility] Eosinophils, Absolute 0.18 0.00 - 0.40 10*3/mm3 04/07/2025 9:50 AM [facility] Basophils, Absolute 0.03 0.00 - 0.20 10*3/mm3 04/07/2025 9:50 AM [facility] Immature Grans, Absolute 0.05 0.00 - 0.05 10*3/mm3 04/07/2025 9:50 AM EDT [facility] nRBC 0.0 0.0 - 0.2 /100 WBC 04/07/2025 9:50 AM EDT [facility] Blood Venipuncture / Unknown 04/07/2025 9:10 AM EDT 04/07/2025 9:38 AM EDT us Jason Álvarez DO LAB BLOOD ORDERABLES Final Resul t [facility]
[address] [place] [address], * (ABNORMAL) Basic Metabolic Panel (04/07/2025 9:10 AM EDT) Glucose 112(H) 65 - 99 mg/dL 04/07/2025 10:19 AM EDT [facility] BUN 13.1 6.0 - 20.0 mg/dL 04/07/2025 10:19 AM EDT [facility] Creatinine 0.77 0.76 - 1.27 mg/dL 04/07/2025 10:19 AM EDT [facility] Sodium 139 136 - 145 mmol/L 04/07/2025 10:19 AM EDT [facility] Potassium 4.2 3.5 - 5.2 mmol/L 04/07/2025 10:19 AM EDT [facility] Comment:Specimen hemolyzed. Result may be falsely elevated. Chloride 105 98 - 107 mmol/L 04/07/2025 10:19 AM EDT [facility] CO2 24.8 22.0 - 29.0 mmol/L 04/07/2025 10:19 AM EDT [facility] Calcium 8.6 8.6 - 10.5 mg/dL 04/07/2025 10:19 AM EDT [facility] BUN/Creatinine Ratio 17.0 7.0 - 25.0 04/07/2025 10:19 AM EDT [facility] Anion Gap 9.2 5.0 - 15.0 mmol/L 04/07/2025 10:19 AM EDT [facility] eGFR 113.2 >60.0 mL/min/1.7 3 04/07/2025 10:19 AM EDT [facility] Blood Venipuncture / Unknown 04/07/2025 9:10 AM EDT 04/07/2025 9:38 AM EDT Narrative [facility] - 04/07/2025 10:19 AM EDT GFR [...] BLOOD ORDERABLES Final Resul t [facility]
[address] [place] [address], * MRI Tibia Fibula Right With & [...] [place] 04/07/2025 9:58 AM EDT Workstation ID: [id number] Narrative 04/07/2025 9:58 AM EDT MRI TIBIA [...] [place] 04/07/2025 9:58 AM EDT Workstation ID: [id number] Sushil Dean Jr., MD IMG MRI ORDERABLES Mary Beth l Result * Heparin Anti-Xa (04/07/2025 1:42 AM EDT) [facility] Heparin Anti-Xa (UFH) 0.38 0.30 - 0.70 IU/ml 04/07/2025 2:14 AM EDT [facility] Blood Venipuncture / Unknown 04/07/2025 1:42 AM EDT 04/07/2025 1:54 AM EDT Chelsie Turpin [facility] LAB BLOOD ORDERABLES Final R esult [facility]
[address] [place] [address], * Heparin Anti-Xa (04/06/2025 7:16 PM EDT) [facility] Heparin Anti-Xa (UFH) 0.33 0.30 - 0.70 IU/ml 04/06/2025 7:50 PM EDT [facility] Blood Venipuncture / Unknown 04/06/2025 7:16 PM EDT 04/06/2025 7:35 PM EDT Cherri Beatty [facility] LAB BLOOD ORDERABLES Final Res ult Performing Organization Address [facility] Co de Phone Number [facility]
[address] [place] [address], * Potassium (04/06/2025 7:16 PM EDT) [facility] Potassium 4.0 3.5 - 5.2 mmol/L 04/06/2025 7:53 PM EDT [facility] Blood Venipuncture / Unknown 04/06/2025 7:16 PM EDT 04/06/2025 7:35 PM EDT Jason Álvarez DO LAB BLOOD ORDERABLES Final Resul t Performing Organization Address [facility] de Phone Number [facility]
[address] [place] [address], * (ABNORMAL) Heparin Anti-Xa (04/06/2025 12:36 PM EDT) [facility] Heparin Anti-Xa (UFH) 0.24(L) 0.30 - 0.70 IU/ml 04/06/2025 1:23 PM EDT [facility] Blood Venipuncture / Unknown 04/06/2025 12:36 PM EDT 04/06/2025 1:07 PM EDT Una Perla PharmD LAB BLOOD ORDERABLES Final R esult Performing Organization Address [facility] Co de Phone Number [facility]
[address] [place] [address], * (ABNORMAL) Heparin Anti-Xa (04/06/2025 3:42 AM EDT) [facility] Heparin Anti-Xa (UFH) 0.25(L) 0.30 - 0.70 IU/ml 04/06/2025 5:30 AM EDT [facility] Blood Venipuncture / Unknown 04/06/2025 3:42 AM EDT 04/06/2025 4:59 AM EDT Chelsie Dyana [facility] LAB BLOOD ORDERABLES Final R esult [facility]
[address] [place] [address], * (ABNORMAL) Basic Metabolic Panel (04/06/2025 3:42 AM EDT) [facility] Glucose 94 65 - 99 mg/dL 04/06/2025 5:59 AM EDT [facility] BUN 12.8 6.0 - 20.0 mg/dL 04/06/2025 5:59 AM EDT [facility] Creatinine 0.80 0.76 - 1.27 mg/dL 04/06/2025 5:59 AM EDT [facility] Sodium 138 136 - 145 mmol/L 04/06/2025 5:59 AM EDT [facility] Potassium 3.6 3.5 - 5.2 mmol/L 04/06/2025 5:59 AM EDT [facility] Chloride 103 98 - 107 mmol/L 04/06/2025 5:59 AM EDT [facility] CO2 24.2 22.0 - 29.0 mmol/L 04/06/2025 5:59 AM EDT [facility] Calcium 8.0(L) 8.6 - 10.5 mg/dL 04/06/2025 5:59 AM EDT [facility] BUN/Creatinine Ratio 16.0 7.0 - 25.0 04/06/2025 5:59 AM EDT [facility] Anion Gap 10.8 5.0 - 15.0 mmol/L 04/06/2025 5:59 AM EDT [facility] eGFR 111.9 >60.0 mL/min/1.7 3 04/06/2025 5:59 AM EDT [facility] Blood Venipuncture / Unknown 04/06/2025 3:42 AM EDT 04/06/2025 5:20 AM EDT [facility] - 04/06/2025 5:59 AM [...] BLOOD ORDERABLES Final Resul t [facility]
[address] [place] [address], * (ABNORMAL) CBC Auto Differential (04/06/2025 3:41 AM EDT) WBC 10.86(H) 3.40 - 10.80 10*3/mm3 04/06/2025 5:04 AM EDT [facility] RBC 5.08 4.14 - 5.80 10*6/mm3 04/06/2025 5:04 AM EDT [facility] Hemoglobin 13.9 13.0 - 17.7 g/dL 04/06/2025 5:04 AM EDT [facility] Hematocrit 43.7 37.5 - 51.0 % 04/06/2025 5:04 AM EDT [facility] MCV 86.0 79.0 - 97.0 fL 04/[facility] 27.4 26.6 - 33.0 pg 04/06/2025 5:04 AM [facility] MCHC 31.8 31.5 - 35.7 g/dL 04/06/2025 5:04 AM [facility] RDW 12.8 12.3 - 15.4 % 04/06/2025 5:04 AM [facility] RDW-SD 40.0 37.0 - 54.0 fl 04/06/2025 5:04 AM [facility] MPV 11.7 6.0 - 12.0 fL 04/06/2025 5:04 AM [facility] Platelets 115(L) 140 - 450 10*3/mm3 04/06/2025 5:04 AM [facility] Neutrophil % 65.3 42.7 - 76.0 % 04/06/2025 5:04 AM [facility] Lymphocyte % 20.5 19.6 - 45.3 % 04/06/2025 5:04 AM [facility] Monocyte % 11.8 5.0 - 12.0 % 04/06/2025 5:04 AM [facility] Eosinophil % 1.8 0.3 - 6.2 % 04/06/2025 5:04 AM [facility] Basophil % 0.3 0.0 - 1.5 % 04/06/2025 5:[facility] Immature Grans % 0.3 0.0 - 0.5 % 04/06/2025 5:04 AM [facility] Neutrophils, Absolute 7.09(H) 1.70 - 7.00 10*3/mm3 04/06/2025 5:[facility] Lymphocytes, Absolute 2.23 0.70 - 3.10 10*3/mm3 04/06/2025 5:04 [facility] Monocytes, Absolute 1.28(H) 0.10 - 0.90 10*3/mm3 04/06/2025 5:04 AM EDT [facility] Eosinophils, Absolute 0.20 0.00 - 0.40 10*3/mm3 04/06/2025 5:04 AM EDT [facility] Basophils, Absolute 0.03 0.00 - 0.20 10*3/mm3 04/06/2025 5:04 AM EDT [facility] Immature Grans, Absolute 0.03 0.00 - 0.05 10*3/mm3 04/06/2025 5:04 AM EDT [facility] nRBC 0.0 0.0 - 0.2 /100 WBC 04/06/2025 5:04 AM EDT [facility] Blood Venipuncture / Unknown 04/06/2025 3:41 AM EDT 04/06/2025 4:58 AM EDT Jason Álvarez DO LAB BLOOD ORDERABLES Final Resul t Performing Organization Address City/[facility] Co de Phone Number [facility]
[address] [place] [address], [place] [phone] * Heparin Anti-Xa (04/05/2025 8:43 PM EDT) Pathologist [facility] Heparin Anti-Xa (UFH) 0.38 0.30 - 0.70 IU/ml 04/05/2025 9:09 PM EDT [facility] Blood Venipuncture / Unknown 04/05/2025 8:43 PM EDT 04/05/2025 8:55 PM EDT us Cherri Beatty [facility] LAB BLOOD ORDERABLES Final Res ult Performing Organization Address City/[facility] Co de Phone Number [facility]
[address] [place] [address], [place] [phone] * CK (04/05/2025 12:15 PM EDT) Creatine Kinase 140 20 - 200 U/L 04/05/2025 1:31 PM EDT [facility] Blood Venipuncture / Unknown 04/05/2025 12:15 PM EDT 04/05/2025 1:03 PM EDT Carlton Mead MD LAB BLOOD ORDERABLES Final R esult Performing Organization Address City/[facility]/ZIP Co de Phone Number [facility]
[address] [place] [address], * (ABNORMAL) Heparin Anti-Xa (04/05/2025 12:15 PM EDT) [facility] Heparin Anti-Xa (UFH) 0.17(L) 0.30 - 0.70 IU/ml 04/05/2025 1:21 PM EDT [facility] Blood Venipuncture / Unknown 04/05/2025 12:15 PM EDT 04/05/2025 1:04 PM EDT Una Perla PharmD LAB BLOOD ORDERABLES Final R esult Performing Organization Address City/[facility] Co de Phone Number [facility]
[address] [place] [address], * (ABNORMAL) aPTT (04/05/2025 3:54 AM EDT) [facility] PTT 35.3(L) 60.0 - 90.0 seconds 04/05/2025 4:31 AM EDT [facility] Blood Venipuncture / Unknown 04/05/2025 3:54 AM EDT 04/05/2025 4:15 AM EDT Narrative [facility] - 04/05/2025 4:31 AM EDT PTT = The equivalent PTT values for the therapeutic range of heparin levels at 0.3 to 0.5 U/ml are 60 to 70 seconds. [employer] LAB BLOOD ORDERABLES Final R esult [facility]
[address] [place] [address], * Heparin Anti-Xa (04/05/2025 3:54 AM EDT) Pathologist [facility] Heparin Anti-Xa (UFH) 0.30 0.30 - 0.70 IU/ml 04/05/2025 4:32 AM EDT [facility] Blood Venipuncture / Unknown 04/05/2025 3:54 AM EDT 04/05/2025 4:15 AM EDT [employer] LAB BLOOD ORDERABLES Final R esult Performing Organization Address City/[facility]/ZIP Co de Phone Number [facility]
[address] [place] [address], * (ABNORMAL) CBC Auto Differential (04/05/2025 3:54 AM EDT) [facility] WBC 11.18(H) 3.40 - 10.80 10*3/mm3 04/05/2025 4:20 AM EDT [facility] RBC 5.00 4.14 - 5.80 10*6/mm3 04/05/2025 4:20 AM EDT [facility] Hemoglobin 13.9 13.0 - 17.7 g/dL 04/05/2025 4:20 AM EDT [facility] Hematocrit 42.4 37.5 - 51.0 % 04/05/2025 4:20 AM EDT [facility] MCV 84.8 79.0 - 97.0 fL 04/05/2025 4:20 AM EDT [facility] MCH 27.8 26.6 - 33.0 pg 04/05/2025 4:20 AM EDT [facility] MCHC 32.8 31.5 - 35.7 g/dL 04/05/2025 4:20 AM [facility] RDW 12.9 12.3 - 15.4 % 04/05/2025 4:20 AM [facility] RDW-SD 39.7 37.0 - 54.0 fl 04/05/2025 4:20 AM [facility] MPV 10.2 6.0 - 12.0 fL 04/05/2025 4:20 AM [facility] Platelets 160 140 - 450 10*3/mm3 04/05/2025 4:20 AM [facility] Neutrophil % 73.5 42.7 - 76.0 % 04/05/2025 4:20 AM [facility] Lymphocyte % 14.0(L) 19.6 - 45.3 % 04/05/2025 4:20 AM [facility] Monocyte % 11.0 5.0 - 12.0 % 04/05/2025 4:20 AM [facility] Eosinophil % 0.8 0.3 - 6.2 % 04/05/2025 4:20 AM [facility] Basophil % 0.3 0.0 - 1.5 % 04/05/2025 4:20 AM [facility] Immature Grans % 0.4 0.0 - 0.5 % 04/05/2025 4:20 AM [facility] Neutrophils, Absolute 8.23(H) 1.70 - 7.00 10*3/mm3 04/05/2025 4:20 AM [facility] Lymphocytes, Absolute 1.56 0.70 - 3.10 10*3/mm3 04/05/2025 4:20 AM [facility] Monocytes, Absolute 1.23(H) 0.10 - 0.90 10*3/mm3 04/05/2025 4:20 AM [facility] Eosinophils, Absolute 0.09 0.00 - 0.40 10*3/mm3 04/05/2025 4:20 AM [facility] Basophils, Absolute 0.03 0.00 - 0.20 10*3/mm3 04/05/2025 4:20 AM EDT [facility] Immature Grans, Absolute 0.04 0.00 - 0.05 10*3/mm3 04/05/2025 4:20 AM EDT [facility] nRBC 0.0 0.0 - 0.2 /100 WBC 04/05/2025 4:20 AM EDT [facility] Blood Venipuncture / Unknown 04/05/2025 3:54 AM EDT 04/05/2025 4:16 AM EDT Una Perla PharmD LAB BLOOD ORDERABLES Final R esult [facility]
[address] [place] [address], * (ABNORMAL) Basic Metabolic Panel (04/05/2025 3:54 AM EDT) Glucose 152(H) 65 - 99 mg/dL 04/05/2025 4:40 AM EDT [facility] BUN 17.3 6.0 - 20.0 mg/dL 04/05/2025 4:40 AM EDT [facility] Creatinine 0.92 0.76 - 1.27 mg/dL 04/05/2025 4:40 AM EDT [facility] Sodium 136 136 - 145 mmol/L 04/05/2025 4:40 AM EDT [facility] Potassium 3.9 3.5 - 5.2 mmol/L 04/05/2025 4:40 AM EDT [facility] Chloride 103 98 - 107 mmol/L 04/05/2025 4:40 AM EDT [facility] CO2 24.0 22.0 - 29.0 mmol/L 04/05/2025 4:40 AM EDT [facility] Calcium 7.8(L) 8.6 - 10.5 mg/dL 04/05/2025 4:40 AM EDT [facility] BUN/Creatinine Ratio 18.8 7.0 - 25.0 04/05/2025 4:40 AM EDT [facility] Anion Gap 9.0 5.0 - 15.0 mmol/L 04/05/2025 4:40 AM EDT [facility] eGFR 105.2 >60.0 mL/min/1.7 3 04/05/2025 4:40 AM EDT [facility] Blood Venipuncture / Unknown 04/05/2025 3:54 AM EDT 04/05/2025 4:15 AM EDT [facility] - 04/05/2025 4:40 AM [...] BLOOD ORDERABLES Final Re sult [facility]
[address] [place] [address], * (ABNORMAL) aPTT (04/05/2025 12:18 AM EDT) PTT 33.6(L) 60.0 - 90.0 seconds 04/05/2025 12:53 AM EDT [facility] Blood Venipuncture / Unknown 04/05/2025 12:18 AM EDT 04/05/2025 12:37 AM EDT [facility] - 04/05/2025 12:53 AM EDT PTT = The equivalent PTT values for the therapeutic range of heparin levels at 0.3 to 0.5 U/ml are 60 to 70 seconds. [employer] LAB BLOOD ORDERABLES Final R esult [facility]
[address] [place] [address], [place] [phone] * (ABNORMAL) Protime-INR (04/05/2025 12:18 AM EDT) Protime 15.9(H) 12.2 - 15.3 Seconds 04/05/2025 12:53 AM EDT [facility] INR 1.19(H) 0.89 - 1.12 04/05/2025 12:53 AM EDT [facility] Blood Venipuncture / Unknown 04/05/2025 12:18 AM EDT 04/05/2025 12:37 AM EDT [employer] LAB BLOOD ORDERABLES Final R esult Performing Organization Address [facility] Co de Phone Number [facility]
[address] [place] [address], [place] [phone] * Heparin Anti-Xa (04/05/2025 12:18 AM EDT) Pathologist [facility] Heparin Anti-Xa (UFH) 0.39 0.30 - 0.70 IU/ml 04/05/2025 12:54 AM EDT [facility] Blood Venipuncture / Unknown 04/05/2025 12:18 AM EDT 04/05/2025 12:37 AM EDT [employer] LAB BLOOD ORDERABLES Final R esult Performing Organization Address City/[facility]/ZIP Co de Phone Number [facility]
[address] [place] [address], [place] [phone] * MRI Tibia Fibula Right With & [...] MD 04/04/2025 11:00 PM EDT Workstation ID: [id number] Narrative 04/04/2025 11:00 PM EDT MRI TIBIA [...] MD 04/04/2025 11:00 PM EDT Workstation ID: [id number] Leonora Shepherd MD IMG MRI ORDERABLES Final Resu lt * POC Creatinine (04/04/2025 2:49 PM EDT) Creatinine 1.10 0.60 - 1.30 mg/dL 04/07/2025 7:14 PM EDT [facility] Comment:Serial Number: [id number] Venous Blood 04/04/2025 2:49 PM EDT 04/07/2025 7:14 PM EDT Jason Álvarez DO POINT OF CARE TEST ORDERABLES Fi nal Result [facility]
[address] [place] [address], [place] [phone] * (ABNORMAL) CBC Auto Differential (04/04/2025 2:47 PM EDT) [facility] Signature WBC 12.72(H) 3.40 - 10.80 10*3/mm3 04/04/2025 2:56 PM EDT [facility] RBC 5.64 4.14 - 5.80 10*6/mm3 04/04/2025 2:56 PM EDT [facility] Hemoglobin 15.3 13.0 - 17.7 g/dL 04/04/2025 2:56 PM EDT [facility] Hematocrit 47.9 37.5 - 51.0 % 04/04/2025 2:56 PM EDT [facility] MCV 84.9 79.0 - 97.0 fL 04/04/2025 2:56 PM EDT [facility] MCH 27.1 26.6 - 33.0 pg 04/04/2025 2:56 PM EDT [facility] MCHC 31.9 31.5 - 35.7 g/dL 04/04/2025 2:56 PM EDT [facility] RDW 13.1 12.3 - 15.4 % 04/04/2025 2:56 PM EDT [facility] RDW-SD 40.3 37.0 - 54.0 fl 04/04/2025 2:56 PM EDT [facility] MPV 9.4 6.0 - 12.0 fL 04/04/2025 2:56 PM EDT [facility] Platelets 232 140 - 450 10*3/mm3 04/04/2025 2:56 PM EDT [facility] Neutrophil % 74.9 42.7 - 76.0 % 04/04/2025 2:56 PM EDT [facility] Lymphocyte % 13.1(L) 19.6 - 45.3 % 04/04/2025 2:56 PM EDT [facility] Monocyte % 11.2 5.0 - 12.0 % 04/04/2025 2:56 PM EDT [facility] Eosinophil % 0.4 0.3 - 6.2 % 04/04/2025 2:56 PM EDT [facility] Basophil % 0.2 0.0 - 1.5 % 04/04/2025 2:56 PM EDT [facility] Immature Grans % 0.2 0.0 - 0.5 % 04/04/2025 2:56 PM EDT [facility] Neutrophils, Absolute 9.52(H) 1.70 - 7.00 10*3/mm3 04/04/2025 2:56 PM EDT [facility] Lymphocytes, Absolute 1.66 0.70 - 3.10 10*3/mm3 04/04/2025 2:56 PM EDT [facility] Monocytes, Absolute 1.43(H) 0.10 - 0.90 10*3/mm3 04/04/2025 2:56 PM EDT [facility] Eosinophils, Absolute 0.05 0.00 - 0.40 10*3/mm3 04/04/2025 2:56 PM EDT [facility] Basophils, Absolute 0.03 0.00 - 0.20 10*3/mm3 04/04/2025 2:56 PM EDT [facility] Immature Grans, Absolute 0.03 0.00 - 0.05 10*3/mm3 04/04/2025 2:56 PM EDT [facility] nRBC 0.0 0.0 - 0.2 /100 WBC 04/04/2025 2:56 PM EDT [facility] Blood Venipuncture / Unknown 04/04/2025 2:47 PM EDT 04/04/2025 2:52 PM EDT us Mario Crowley DO LAB BLOOD ORDERABLES Fin al Result [facility]
[address] [place] [address], * (ABNORMAL) C-reactive Protein (04/04/2025 2:47 PM EDT) Pathologist [facility] C-Reactive Protein 8.57(H) 0.00 - 0.50 mg/dL 04/04/2025 3:26 PM EDT [facility] Blood Venipuncture / Unknown 04/04/2025 2:47 PM EDT 04/04/2025 2:52 PM EDT Mario Ortiz Keo LAB BLOOD ORDERABLES Fin al Result [facility]
[address] [place] [address], * (ABNORMAL) Sedimentation Rate (04/04/2025 2:47 PM EDT) [facility] Sed Rate 51(H) 0 - 15 mm/hr 04/04/2025 3:06 PM EDT [facility] Blood Venipuncture / Unknown 04/04/2025 2:47 PM EDT 04/04/2025 2:52 PM EDT Mario Ortiz Keo LAB BLOOD ORDERABLES Fin al Result Performing Organization Address City/[facility]/ZIP Co de Phone Number [facility]
[address] [place] [address], * Comprehensive Metabolic Panel (04/04/2025 2:47 PM EDT) [facility] Glucose 90 65 - 99 mg/dL 04/04/2025 3:26 PM EDT [facility] BUN 18.3 6.0 - 20.0 mg/dL 04/04/2025 3:26 PM EDT [facility] Creatinine 0.94 0.76 - 1.27 mg/dL 04/04/2025 3:26 PM EDT [facility] Sodium 136 136 - 145 mmol/L 04/04/2025 3:26 PM EDT [facility] Potassium 3.8 3.5 - 5.2 mmol/L 04/04/2025 3:26 PM EDT [facility] Chloride 100 98 - 107 mmol/L 04/04/2025 3:26 PM EDT [facility] CO2 25.3 22.0 - 29.0 mmol/L 04/04/2025 3:26 PM EDT [facility] Calcium 8.6 8.6 - 10.5 mg/dL 04/04/2025 3:26 PM EDT [facility] Total Protein 7.3 6.0 - 8.5 g/dL 04/04/2025 3:26 PM EDT [facility] Albumin 4.1 3.5 - 5.2 g/dL 04/04/2025 3:26 PM EDT [facility] ALT (SGPT) 26 1 - 41 U/L 04/04/2025 3:26 PM EDT [facility] AST (SGOT) 25 1 - 40 U/L 04/04/2025 3:26 PM EDT [facility] Alkaline Phosphatase 106 39 - 117 U/L 04/04/2025 3:26 PM T [facility] Total Bilirubin 1.0 0.0 - 1.2 mg/dL 04/04/2025 3:26 PM EDT [facility] Globulin 3.2 gm/dL 04/04/2025 3:26 PM T [facility] Comment:Calculated Result A/G Ratio 1.3 g/dL 04/04/2025 3:26 PM EDT [facility] BUN/Creatinine Ratio 19.5 7.0 - 25.0 04/04/2025 3:26 PM T [facility] Anion Gap 10.7 5.0 - 15.0 mmol/L 04/04/2025 3:26 PM T [facility] eGFR 102.5 >60.0 mL/min/1.7 3 04/04/2025 3:26 PM [facility] Blood Venipuncture / Unknown 04/04/2025 2:47 PM EDT 04/04/2025 2:52 PM EDT Narrative [facility] - 04/04/2025 3:26 PM EDT GFR [...] BLOOD ORDERABLES Fin al Result [facility]
[address] [place] [address], documented in this encounter Visit Diagnoses Diagnosis [...] BPA Driven Protocol Open Order & [facility] Electrolyte Replacement Protocol Algorithm to View [...] BPA Driven Protocol Open Order & [facility] Electrolyte Replacement Protocol Algorithm to View [...] Salazar, KELL)[phone] (Given - Provider: Anahy Marcelino, PROFESSIONAL [employer])[id number] (Canceled Entry - Provider: Anahy Marcelino [employer]ESSION[employer] - Comment: previously given) 0837 (Given - [...] medication prescribed for a lower pain scale. ([facility]) If given for pain, use the [...] Continuous Medication Order 04/09/2025 04/10/2025 04/11/2025 heparin 89912 units/250 mL (100 units/mL) in 0.45 % [...] BPA Driven Protocol Open Order & [facility] Electrolyte Replacement Protocol Algorithm to View [...] documented as of this encounter Care Teams Donation Worker Relationship Specialty Start Date End Date Provider, [place] [address] PCP - General 05/09/23 documented as of this encounter
--- OUTSIDE RECORDS SUMMARY | 2025-04-08 14:34 | XMS_ITS | Encounter Summary ---
Author Organization [facility] Address [address] [place] [address] Care Team Providers Care Underwriting Support Manager Name Role Phone Provider, No Known Primary Care Provider Unavail able Reason for Visit * Auth/Cert Specialty Diagnoses / Procedures Referred By Bulmaro muniz Referred To Contact Diagnoses Right BKA infection Referral ID Status Reason Start Date Expiration Date Visits Re quested Visits Authorized [id number] 1 1 Encounter Details Date Type Department Care Team (Late st Contact Info) Description 04/08/2025 3:34 PM EDT Anesthesia Event [facility] OR [address] [place] [address] Ulises Hoffman MD [address] [place] [address] Jairo Brooks MD [address] [place] [address] Anesthesia Record Procedure Summary Procedure Name Responsible Anesthesiologist Anesthesia Start Time Anesthesia Stop Time LEG DEBRIDEMENT AND IRRIGATION (Right) Ulises Hoffman MD 04/08/25 1534 04/08/25 1639 Events Date Time Event Comment 04/08/2025 1420 1443 AN Equip Check 1534 An Start The patient was reevaluated immediately before moderate or deep sedation use and before anesthesia induction. 1534 An Start Data 1539 An Induction 1542 An Intubation 1632 An Extubation 1634 an stop data 1639 Handoff to RN The following has been [...] of report from the receiving PACU/ICU team 1639 An Stop Meds Name Total propofol 10 MG/ML 250 mg lidocaine PF 1% 1 % 50 mg rocuronium 50 MG/5ML 50 mg fentaNYL citrate (PF) 100 MCG/2ML 100 mc g albuterol (PROVENTIL HFA;VENTOLIN HFA) i nhaler 2 puff sugammadex 200 MG/2ML 200 mg phenylephrine (ROMARIO-SYNEPHRINE) 10 mg/mL injection 100 mcg lactated ringers infusion 1,000 mL * Agents Name O2 N2O Air Sevoflurane Desflurane Inspired Sevoflurane * Blood No blood administrations on file. Lines, Drains, and Airways Type Details Placement Removal Peripheral IV Placement Date: 04/05/25; Placement Time: 0025; Change Due: 04/09/25; Catheter Size: 20 G; Orientation: Anterior, Left; Location: Forearm; Site Prep: Chlorhexidine; Technique: Anatomical landmarks; Inserted by: Mary Christine RN; Insertion Attempts: 1; Patient Tolerance: Tolerated well 04/05/25 0025 by Mary Christine RN NPWT (Negative Pressure Wound Therapy) 04/07/25; RIGHT LEG 04/07/25 0000 by Anum Sanchez RN Wound 04/08/25; 0135; Righ t; anterior; knee; Surgical; Closed Surgi 04/08/25 0135 by Susi Grullon, LU Peripheral IV Placement Date: 04/04/25; Placement Time: 1450; Catheter Size: 20 G; Orientation: Left; Location: Antecubital; Site Prep: Chlorhexidine; Local Anes: None; Technique: Anatomical landmarks; Inserted by: MAURICIO; Insertion Attempts: 1; Patient Tolerance: Tolerated well; Removal Date: 04/09/25; Removal Time: 1000 04/04/25 1451 by Mary Newell RN 04/09/25 1000 by Shirley Hart, LU Closed/Suction Drain 04/08/25; 1500; 1; Inferior, Proximal, Right, Anterior; Leg; Bulb 04/08/25 1500 by Jairo Souza RN 04/10/25 0000 by Shirley Hart, LU ETT Placement Date: 04/08/25; Placement Time: 154 (created via procedure documentation); Blade Size: 3; Location: Oral; Removal Date: 04/08/25; Removal Time: 163104/08/25 1542 by Karol Albert, KAREN 04/08/25 1632 by Karol Albert SRNA documented in this encounter Social History Tobacco Use Types Packs/Day Years Used Date Smoking Tobacco: Never Smokeless Tobacco: Never Alcohol Use Standard Drinks/Week Comments Not Currently 0 (1 standard drink = 0.6 oz pur e alcohol) [facility] Utilities Answer Date Recorded In the past 12 months has [employer], oil, or water [employer] threatened to shut off services in your [...] or training? 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]) Surgeons: Sushil Dean Jr., MD Provider: Ulises Hoffman MD Anesthesia Type: general ASA Status: 3 Anesthesia Type: general Vitals Vitals Value Taken Time BP 126/78 04/08/25 16:40 Temp 97 ??F (36.1 ??C) 04/08/25 16:40 Pulse 91 04/08/25 16:40 Resp 14 04/08/25 16:40 SpO2 96 % 04/08/25 16:40 Post Anesthesia Care and Evaluation Patient location during evaluation: PACU Patient participation: complete - patient participated Level of consciousness: awake and alert Pain score: 0 Pain management: adequate Airway patency: patent Anesthetic complications: No anesthetic complications PONV Status: none Cardiovascular status: hemodynamically stable and acceptable Respiratory status: nonlabored ventilation, acceptable and nasal cannula Hydration status: acceptable * Anesthesia Preprocedure Evaluation - Jairo Brooks MD - 04/08/2025 2:18 PM EDT Anesthesia Evaluation Patient summary reviewed and Nursing notes reviewed Airway Dental Pulmonary (+) pulmonary embolism (> 6 months ago; eliquis tx), asthma,sleep apnea Cardiovascular (+) hypertension, CHF , hyperlipidemia Neuro/Psych- negative ROS GI/Hepatic/Renal/Endo (+) morbid obesity, GERD Musculoskeletal (-) negative ROS Abdominal Substance History - 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 ROS Other Anesthesia Plan ASA 3 general intravenous induction CODE STATUS: Code Status (Patient has no pulse and is not breathing): CPR (Attempt to Resuscitate) Medical Interventions (Patient has pulse or is breathing): Full Support Level Of Support Discussed With: Patient documented in this encounter Plan of Treatment Pending Results Name Type Priority Associated Diagnoses Date /Time Airway Procedures Routine 04/08/2025 3:4 6 PM EDT documented as of this encounter Procedures Procedure Name Priority Date/Time Associated Diagnosis Comments ANESTHESIA INTUBATION Routine 04/08/2025 3:46 PM EDT documented in this encounter Visit Diagnoses Not on filedocumented in this encounter Administered Medications Inactive Administered Medications - up to 3 most recent administrations Medication Order MAR Action Action Date Dose Rate Site albuterol sulfate HFA (PROVENTIL HFA;VENTOLIN HFA;PROAIR HFA) inhaler Inhalation, As Needed, Starting on Mon04/08/25 at 1549 Given 04/08/2025 3:49 PM EDT 2 puffs fentaNYL citrate (PF) (SUBLIMAZE) injection Intravenous, As Needed, Starting on Mon04/08/25 at 1539 Given 04/08/2025 4:10 PM EDT 50 mcg Given 04/08/2025 3:39 PM EDT 50 mcg lactated ringers infusion Intravenous, Continuous PRN, Starting on Mon04/08/25 at 1534 New Bag 04/08/2025 3:34 PM EDT lidocaine PF 1% (XYLOCAINE) injection Intravenous, As Needed, Starting on Mon04/08/25 at 1539 Given 04/08/2025 3:39 PM EDT 50 mg phenylephrine (ROMARIO-SYNEPHRINE) injection Intravenous, As Needed, Starting on Mon04/08/25 at 1553 Given 04/08/2025 3:53 PM EDT 100 mcg propofol (DIPRIVAN) injection Intravenous, As Needed, Starting on Mon04/08/25 at 1539 Given 04/08/2025 3:39 PM EDT 250 mg rocuronium (ZEMURON) injection Intravenous, As Needed, Starting on Mon04/08/25 at 1539 Given 04/08/2025 3:39 PM EDT 50 mg sugammadex (BRIDION) injection Intravenous, As Needed, Starting on Mon04/08/25 at 1631 Given 04/08/2025 4:31 PM EDT 200 mg documented in this encounter Additional Health Concerns Infection Onset Date Last Indicated Resolved Time 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
[2025-05-13 08:19] VITALS: BP 127/91; PULSE 68; RESP 20; TEMP 36.7; O2SAT 93
[2025-05-13] MEDS: DAPTOmycin 1,000 MG in 0.9 % SODIUM CHLORIDE 50 ML 100 MG IV (08:19)
[2025-05-13] MEDS: SODIUM CHLORIDE 0.9% 10ML FLUSH SYRINGE 10 ML IV (08:21)
--- OUTSIDE RECORDS SUMMARY | 2025-05-13 08:21 | XMS_ITS | Encounter Summary ---
Author Organization [facility] Address [address] [place] [address] Care Team Providers Care Hi Ranger Operator Name Role Phone Unavailable Primary Care Provider Unavailabl e Encounter Details Date Type Department Care Team (Late st Contact Info) Description 10/03/2022 Lab Requisition [facility] [address] [place] [address] Dalila Cox MD [address] [place], [place] [id number] Encounter for general adult medical examination without [...] Culture Neelima albicans(A) 10/05/2022 11:58 AM EDT [facility] Comment: This result was determined by MALDI tof Mass spectrometry. This assay was developed and its performance characteristics determined by [facility] as appropriate for clinical purposes. [...] Edited Result - Final [facility] [address] [place] [address] documented in this encounter Visit Diagnoses Diagnosis Encounter for general adult medical examination without abnormal findings documented in this encounter
--- OUTSIDE RECORDS SUMMARY | 2025-05-13 08:21 | XMS_ITS | Encounter Summary ---
Author Organization Healthcare Address [address] [place] [address] Care Team Providers Care Curtains And Draperies Salesperson Name Role Phone Unavailable Primary Care Provider Unavailabl e Encounter Details Date Type Department Care Team (Late st Contact Info) Description 10/19/2022 Lab Requisition [facility] [address] [place] [address] Sushil Dean MD [address] [place] [address] Encounter for general adult medical examination without [...] by MALDI tof mass spectrometry using the Sterio.me database and is for research use only. The organism value for this result has been updated. These results have been appended to the previously preliminary verified report. Bone Specimen from bone / Unknown 10/19/2022 5:17 PM EDT 10/19/2022 9:49 PM EDT Sushil Dean MD LAB MICROBIOLOGY - GENERAL O RDERABLES Final Result Performing Organization Address [facility] de Phone Number HEALTHCARE LAB [address] [place] [phone] * Bone Culture and Gram Stain (10/19/2022 5:17 PM EDT) Culture No growth at day 4 2022 8:14 AM EDT [facility]ARE [facility] Gram Stain Result Few Polymorphonuclear leukocytes 10/23/2022 8:14 AM EDT [facility]ALTH[facility]ARE LAB Gram Stain Result No organisms seen 10/23/2022 8:14 AM EDT [facility] Bone Specimen from bone / Unknown 10/19/2022 5:17 PM EDT 10/19/2022 9:49 PM EDT Sushil Dean MD LAB MICROBIOLOGY - GENERAL O RDERAADDI Final Result Performing Organization Address [facility] Phone Number HEALTHCARE LAB [address] [place] [address] documented in this encounter Visit Diagnoses Diagnosis Encounter for general adult medical examination without abnormal findings documented in this encounter
--- OUTSIDE RECORDS SUMMARY | 2025-05-13 08:21 | XMS_ITS | Encounter Summary ---
Author Organization Healthcare Address [address] [place] [address] Care Team Providers Care Airport Operations Crew Member Name Role Phone Unavailable Primary Care Provider Unavailabl e Encounter Details Date Type Department Care Team (Late st Contact Info) Description 10/01/2022 Lab Requisition [facility] Lab [address] [place] [address] Sushil Dean MD [address] [facility] [place] [address] Encounter for general adult medical examination without [...] has been identified using the FDA Approved Kink[employer] Search Toolsyper [place] System The organism value for this [...] 10/04/2022 2:17 PM EDT Refer to culture [id number] FOR SUSCEPTIBILITIES ON NEELIMA ALBICANS us Sushil Dean MD LAB MICROBIOLOGY - GENERAL O RDERABLES Final Result HEALTHCARE LAB [address] [place] [address] documented in this encounter Visit Diagnoses Diagnosis Encounter for general adult medical examination without abnormal findings documented in this encounter
--- OUTSIDE RECORDS SUMMARY | 2025-05-13 08:21 | XMS_ITS | Encounter Summary ---
Author Organization Healthcare Address [address] [place] [address] Care Team Providers Care Portal Administrator Name Role Phone Unavailable Primary Care Provider Unavailabl e Encounter Details Date Type Department Care Team (Late st Contact Info) Description 05/13/2023 Lab Requisition [facility] Lab [address] [place] [address] Sushil Dean MD [address] [facility] [place] [address] Encounter for general adult medical examination without [...] Result Performing Organization Address [facility] Co de Phone Number [facility] [address] [place] [address] * Anaerobic Culture (05/13/2023 9:17 AM EDT) Culture No growth at day 4 05/20/2023 10:35 AM EST [facility] Bone 05/13/2023 9:17 AM EDT 05/13/2023 1:25 PM EDT us Sushil Dean MD LAB MICROBIOLOGY - GENERAL O RDERABLES Final Result Performing Organization Address [facility] de Phone Number [facility] [address] [place] [address] * Bone Culture and Gram Stain (05/13/2023 [...] Result Performing Organization Address [facility] de Phone Number [facility] [address] [place] [address] documented in this encounter Visit Diagnoses Diagnosis Encounter for general adult medical examination without abnormal findings documented in this encounter
--- OUTSIDE RECORDS SUMMARY | 2025-05-13 08:21 | XMS_ITS | Clinical Summary ---
Author Organization [facility] Address [address] [place] [address] Care Team Providers Care Junior Analyst Name Role Phone Provider, No Known [...] Description 04/08/2025 3:34 PM EDT Anesthesia Event [facility] OR [address] [place] [phone] Ulises Hoffman MD Wells, Jeremy B., MD 04/08/2025 2:45 PM EDT - 04/08/2025 4:04 PM EDT Surgery [facility] OR [address] [place] [phone] Sushil Dean Jr., MD LEG DEBRIDEMENT AND IRRIGATION 04/07/2025 8:36 PM EDT Anesthesia Event [facility] OR [address] [place] [phone] Luci Alonso DO 04/07/2025 6:00 PM EDT - 04/07/2025 6:52 PM EDT Surgery [facility] OR [address] [place] [phone] Sushil Dean Jr., MD LEG DEBRIDEMENT, IRRIGATION 04/04/2025 4:10 PM EDT - 04/11/2025 1:58 PM EDT Hospital Encounter [facility] [address] [place] [phone] Mario Crowley, Leonora Calderon MD Gay, Bryce, [...] drink = 0.6 oz pur e alcohol) Synapseities Answer Date Recorded In the past 12 months has [employer], gas, oil, or water [employer] threatened to shut off services in your [...] or training? Not on file Preferred Language Jamaican 04/07/2025 Sex and Gender Information Value Date [...] this topic Medical Devices Implanted Type Area Professional Nursing Assistant Device Identifier Shelf Expiration Date Model / Serial / Lot Dev Wnd/Cls Contrl Tiss Stratafix Spiral Pls Pds Ct1 0 22cm - [id number] Implanted:Qty: 1 on 04/08/2025 by Sushil Dean Jr., MD at [facility] Implant Right: Leg [employer] 12/07/2025 [id number] / / [id number] Procedures Procedure Name Priority [...] 3.40 - 10.80 10*3/mm3 [facility] RBC 4.70 4.14 - 5.80 10*6/mm3 04/11/2025 4:02 AM [facility] Hemoglobin 12.8(L) 13.0 - 17.7 g/dL 04/11/2025 4:02 AM [facility] Hematocrit 40.5 37.5 - 51.0 % 04/[facility] MCV 86.2 79.0 - 97.0 fL 04/11/2025 4:02 AM [facility] MCH 27.2 26.6 - 33.0 pg 04/11/2025 4:02 AM [facility] LAB[facility] MCHC 31.6 31.5 - 35.7 g/dL 04/11/2025 4:02 AM [facility] RDW 12.9 12.3 - 15.4 % 04/11/2025 4:02 AM [facility] LAB[facility] RDW-SD 40.5 37.0 - 54.0 fl 04/11/2025 4:02 AM [facility] MPV 9.2 6.0 - 12.0 fL 04/11/2025 4:02 AM [facility] Platelets 267 140 - 450 10*3/mm3 04/11/2025 4:02 AM [facility] Neutrophil % 59.5 42.7 - 76.0 % 04/11/2025 4:02 AM [facility] Lymphocyte % 26.3 19.6 - 45.3 % 04/11/2025 4:02 AM [facility] LAB[facility] Monocyte % 9.3 5.0 - 12.0 % 04/11/2025 [facility] Eosinophil % 4.1 0.3 - 6.2 % 04/11/2025 [facility] Basophil % 0.4 0.0 - 1.5 % 04/11/2025 [facility] Immature Grans % 0.4 0.0 - 0.5 % 04/11/2025 4:02 AM EDT [facility] Neutrophils, Absolute 4.69 1.70 - 7.00 10*3/mm3 04/11/2025 4:02 AM EDT [facility] Lymphocytes, Absolute 2.07 0.70 - 3.10 10*3/mm3 04/11/2025 4:02 AM EDT [facility] Monocytes, Absolute 0.73 0.10 - 0.90 10*3/mm3 04/11/2025 4:02 AM EDT [facility] Eosinophils, Absolute 0.32 0.00 - 0.40 10*3/mm3 04/11/2025 4:02 AM EDT [facility] Basophils, Absolute 0.03 0.00 - 0.20 10*3/mm3 04/11/2025 4:02 AM EDT [facility] Immature Grans, Absolute 0.03 0.00 - 0.05 10*3/mm3 04/11/2025 4:02 AM EDT [facility] nRBC 0.0 0.0 - 0.2 /100 WBC 04/11/2025 4:02 AM EDT [facility] Blood Venipuncture / Unknown 04/11/2025 3:40 AM EDT 04/11/2025 3:59 AM EDT us Sushil Dean Jr., MD LAB BLOOD ORDERABLES Fi nal Result [facility]
[address] [place] [address], * (ABNORMAL) Comprehensive Metabolic Panel (04/11/2025 3:40 AM EDT) Only the most recent of2 resultswithin the time period is included. [facility] Glucose 108(H) 65 - 99 mg/dL 04/11/2025 4:19 AM EDT [facility] BUN 12.5 6.0 - 20.0 mg/dL 04/11/2025 4:19 AM [facility] Creatinine 0.68(L) 0.76 - 1.27 mg/dL 04/11/2025 4:19 AM [facility] Sodium 140 136 - 145 mmol/L 04/11/2025 4:19 AM [facility] Potassium 3.8 3.5 - 5.2 mmol/L 04/11/2025 4:19 AM [facility] Chloride 105 98 - 107 mmol/L 04/11/2025 4:19 AM [facility] CO2 28.2 22.0 - 29.0 mmol/L 04/11/2025 4:19 AM [facility] Calcium 8.2(L) 8.6 - 10.5 mg/dL 04/11/2025 4:19 AM [facility] Total Protein 6.1 6.0 - 8.5 g/dL 04/11/2025 4:19 AM [facility] Albumin 3.1(L) 3.5 - 5.2 g/dL 04/11/2025 4:19 AM [facility] ALT (SGPT) 52(H) 1 - 41 U/L 04/11/2025 4:19 AM [facility] AST (SGOT) 40 1 - 40 U/L 04/11/2025 4:19 AM [facility] Alkaline Phosphatase 99 39 - 117 U/L 04/11/2025 4:19 AM [facility] Total Bilirubin 0.2 0.0 - 1.2 mg/dL 04/11/2025 4:19 AM [facility] Globulin 3.0 gm/dL 04/11/2025 4:19 AM [facility] Comment:Calculated Result A/G Ratio 1.0 g/dL 04/11/2025 4:19 AM [facility] BUN/Creatinine Ratio 18.4 7.0 - 25.0 04/11/2025 4:19 AM [facility] Anion Gap 6.8 5.0 - 15.0 mmol/L 04/11/2025 4:19 AM EDT [facility] eGFR 117.5 >60.0 mL/min/1.7 3 04/11/2025 4:19 AM EDT [facility] Blood Venipuncture / Unknown 04/11/2025 3:40 AM EDT 04/11/2025 3:56 AM EDT Narrative [facility] - 04/11/2025 4:19 AM [...] include race as a factor Rosario Hill PLANT PROTECTION SUPERVISOR LAB BLOOD ORDERABLES Final Result [facility]
[address] [place] [address], * Heparin Anti-Xa (04/10/2025 3:46 AM EDT) Only the most recent of13 resultswithin the time period is included. Heparin Anti-Xa (UFH) 0.35 0.30 - 0.70 IU/ml 04/10/2025 4:23 AM EDT [facility] Blood Venipuncture / Unknown 04/10/2025 3:46 AM EDT 04/10/2025 3:53 AM EDT Larisa Hamilton [facility] LAB BLOOD ORDERABLES Final R esult [facility]
[address] [place] [address], * (ABNORMAL) Basic Metabolic Panel (04/10/2025 3:46 AM EDT) Only the most recent of6 resultswithin the time period is included. Pathologist [facility] Glucose 125(H) 65 - 99 mg/dL 04/10/2025 4:20 AM EDT [facility] BUN 15.9 6.0 - 20.0 mg/dL 04/10/2025 4:20 AM EDT [facility] Creatinine 0.77 0.76 - 1.27 mg/dL 04/10/2025 4:20 AM EDT [facility] Sodium 137 136 - 145 mmol/L 04/10/2025 4:20 AM EDT [facility] Potassium 3.9 3.5 - 5.2 mmol/L 04/10/2025 4:20 AM EDT [facility] Chloride 102 98 - 107 mmol/L 04/10/2025 4:20 AM EDT [facility] CO2 26.9 22.0 - 29.0 mmol/L 04/10/2025 4:20 AM EDT [facility] Calcium 7.9(L) 8.6 - 10.5 mg/dL 04/10/2025 4:20 AM EDT [facility] BUN/Creatinine Ratio 20.6 7.0 - 25.0 04/10/2025 4:20 AM EDT [facility] Anion Gap 8.1 5.0 - 15.0 mmol/L 04/10/2025 4:20 AM EDT [facility] eGFR 113.2 >60.0 mL/min/1.7 3 04/10/2025 4:20 AM [facility]CHIAT[facility]IC LAB[facility] Blood Venipuncture / Unknown 04/10/2025 3:46 AM EDT 04/10/2025 3:52 AM EDT [facility] - 04/10/2025 4:20 AM [...] Resul t Performing Organization Address City/[facility] Co de Phone Number [facility]
[address] [place] [address], * Wound Culture - Swab, Leg, Right (04/08/2025 3:40 PM EDT) Only the most recent of3 resultswithin the time period is included. Wound Culture No growth at 3 days ALIZA 04/11/2025 10:40 AM EDT [facility] Gram Stain Few (2+) WBCs seen 04/11/2025 10:40 AM EDT [facility] Gram Stain No organisms seen 04/11/2025 10:40 AM EDT [facility] Swab Structure of right lower limb / Unknown 04/08/2025 3:40 PM EDT 04/08/2025 8:05 PM EDT Sushil Dean Jr., MD MICROBIOLOGY - GENERAL ORDERABLES Final Result Performing Organization Address [facility] Co de Phone Number [facility]
[address] [place] [address], [facility]
[address] [place] [address], * Anaerobic Culture - Swab, Leg, Right (04/08/2025 3:40 PM EDT) Only the most recent of4 resultswithin the time period is included. Anaerobic Culture No anaerobes isolated at 5 days ALIZA 04/13/2025 7:24 AM EDT [facility] Swab Structure of right lower limb / Unknown 04/08/2025 3:40 PM EDT 04/08/2025 8:05 PM EDT Sushil Dean Jr., MD MICROBIOLOGY - GENERAL ORDERABLES Final Result Performing Organization Address City/[facility] Co de Phone Number [facility]
[address] [place] [address], * Scan Slide (04/08/2025 8:41 AM EDT) RBC Morphology Normal Normal 04/08/2025 11:02 AM EDT [facility] WBC Morphology Normal Normal 04/08/2025 11:02 AM EDT [facility] Platelet Estimate Adequate Normal 04/08/2025 11:02 AM EDT [facility] Clumped Platelets Present None Seen 04/08/2025 11:02 AM EDT [facility] Blood Venipuncture / Unknown 04/08/2025 8:41 AM EDT 04/08/2025 9:10 AM EDT Una Perla PharmD LAB BLOOD ORDERABLES Final R esult Performing Organization Address [facility] Co de Phone Number [facility]
[address] [place] [address], * FL C Arm During Surgery (04/07/2025 9:32 PM EDT) Narrative SYSTEMGENERATED, DOCUMENTATION - 04/07/2025 9:38 PM EDT This procedure was auto-finalized with no dictation required. Sushil Dean Jr., MD IMG FLUOROSCOPY ORDERAB LES Final Result * Tissue / Bone Culture - Tissue, Leg, Right (04/07/2025 9:13 PM EDT) Tissue Culture No growth at 3 days ALIZA 04/11/2025 10:36 AM EDT [facility] Gram Stain Rare (1+) WBCs seen 04/11/2025 10:36 AM EDT [facility] Gram Stain No organisms seen 04/11/2025 10:36 AM EDT [facility] Tissue Structure of right lower limb / Unknown 04/07/2025 9:13 PM EDT 04/08/2025 4:54 AM EDT us Sushil Dean Jr., MD MICROBIOLOGY - GENERAL ORDERABLES Final Result [facility]
[address] [place] [address], [place] [phone] [facility]
[address] [place] [address], [place] [phone] * BH AN ETT AIRWAY (04/07/2025 8:44 [...] [place] 04/07/2025 9:58 AM EDT Workstation ID: [id number] Narrative 04/07/2025 9:58 AM EDT MRI TIBIA [...] [place] 04/07/2025 9:58 AM EDT Workstation ID: [id number] us Sushil Dean Jr., MD IM MRI ORDERABLES Mary Beth l Result * Potassium (04/06/2025 7:16 PM EDT) Potassium 4.0 3.5 - 5.2 mmol/L 04/06/2025 7:53 PM EDT [facility] Blood Venipuncture / Unknown 04/06/2025 7:16 PM EDT 04/06/2025 7:35 PM EDT Jason Álvarez DO LAB BLOOD ORDERABLES Final Resul t Performing Organization Address City/[facility]/ZIP Co de Phone Number [facility]
[address] [place] [address], * CK (04/05/2025 12:15 PM EDT) Creatine Kinase 140 20 - 200 U/L 04/05/2025 1:31 PM EDT [facility] Blood Venipuncture / Unknown 04/05/2025 12:15 PM EDT 04/05/2025 1:03 PM EDT Carlton Mead MD LAB BLOOD ORDERABLES Final R esult Performing Organization Address [facility] Co de Phone Number [facility]
[address] [place] [address], * (ABNORMAL) aPTT (04/05/2025 3:54 AM EDT) Only the most recent of2 resultswithin the time period is included. PTT 35.3(L) 60.0 - 90.0 seconds 04/05/2025 4:31 AM EDT [facility] Blood Venipuncture / Unknown 04/05/2025 3:54 AM EDT 04/05/2025 4:15 AM EDT Narrative [facility] - 04/05/2025 4:31 AM EDT PTT = The equivalent PTT values for the therapeutic range of heparin levels at 0.3 to 0.5 U/ml are 60 to 70 seconds. Una LundbergD LAB BLOOD ORDERABLES Final R esult Performing Organization Address [facility] Co de Phone Number [facility]
[address] [place] [address], * (ABNORMAL) Protime-INR (04/05/2025 12:18 AM EDT) [facility] Protime 15.9(H) 12.2 - 15.3 Seconds 04/05/2025 12:53 AM EDT [facility] INR 1.19(H) 0.89 - 1.12 04/05/2025 12:53 AM EDT [facility] Blood Venipuncture / Unknown 04/05/2025 12:18 AM EDT 04/05/2025 12:37 AM EDT Una Perla PharmD LAB BLOOD ORDERABLES Final R esult Performing Organization Address [facility] Co de Phone Number [facility]
[address] [place] [address], * POC Creatinine (04/04/2025 2:49 PM EDT) [facility] Creatinine 1.10 0.60 - 1.30 mg/dL 04/07/2025 7:14 PM EDT [facility] Comment:Serial Number: [id number] [id number] Venous Blood 04/04/2025 2:49 PM EDT 04/07/2025 7:14 PM EDT Jason Álvarez DO POINT OF CARE TEST ORDERABLES Fi nal Result Performing Organization Address [facility] Co de Phone Number [facility]
[address] [place] [address], * (ABNORMAL) Sedimentation Rate (04/04/2025 2:47 PM EDT) [facility] Sed Rate 51(H) 0 - 15 mm/hr 04/04/2025 3:06 PM EDT [facility] Blood Venipuncture / Unknown 04/04/2025 2:47 PM EDT 04/04/2025 2:52 PM EDT Mario Ortiz [facility] LAB BLOOD ORDERABLES Fin al Result Performing Organization Address City/[facility]/ZIP Co de Phone Number [facility]
[address] [place] [address], * (ABNORMAL) C-reactive Protein (04/04/2025 2:47 PM EDT) C-Reactive Protein 8.57(H) 0.00 - 0.50 mg/dL 04/04/2025 3:26 PM EDT [facility] Blood Venipuncture / Unknown 04/04/2025 2:47 PM EDT 04/04/2025 2:52 PM EDT [facility] BLOOD ORDERABLES Fin al Result Performing Organization Address City/[facility] de Phone Number [facility]
[address] [place] [address], from Last 3 Months Additional Health Concerns [...] Of Support Discussed With: Patient Care Teams Junior Analyst Relationship Specialty Start Date End Date Provider, [place] [address] PCP - General 05/09/23
--- OUTSIDE RECORDS SUMMARY | 2025-05-13 08:21 | XMS_ITS | Patient Health Record ---
[facility] [address] [facility] [address] [place] [id number] Care Team Providers Care Systems Security Analyst Name Role Phone Zeeshan Salazar Primary Care Provider [phone] Allergies No Known Allergies Medications Medication SIG [...] W/U Status Risk Notes Problem Essential hypertension (83614637) HTN [Hypertension] (401.9) Active confirmed appears resolved Problem Hypothyroidism (61372444) Hypothyroidism NOS (244.9) Active confirmed Problem Hyperlipidemia (31385623) Hyperlipidemia (272.4) Active confirmed Problem Constipation (09882854) Constipation, unspecified constipation type (K59.00) Active confirmed Problem History of pulmonary embolism on long-term anticoagulation therapy (51081101296142438 ) Hx pulmonary embolism (Z86.711) Active confirmed Problem Long-term current use of anticoagulant (531169682) Current use of hand model anticoagulation (Z79.01) Active confirmed Problem Adjustment disorder with anxious mood (71341093) Adjustment disorder with anxious mood (F43.22) Active confirmed Problem History of pulmonary embolus (244076198) History of pulmonary embolus (PE) (Z86.711) Active confirmed Problem Methicillin resistant Staphylococcus aureus infection (disorder) (656323235) Infection of wound due to methicillin resistant Staphylococcus aureus (MRSA) (A49.02) Active confirmed Problem Arthritis of knee (535590449) Arthritis of knee (M17.10) Active confirmed Problem Amputated below knee (198009400) Status post below knee amputation of right lower extremity (Z89.511) Active confirmed Problem Gastroesophageal reflux disease (871651174) Gastroesophageal reflux disease, unspecified whether esophagitis present [...]
--- OUTSIDE RECORDS SUMMARY | 2025-05-13 08:21 | XMS_ITS | Encounter Summary ---
Author Organization Healthcare Address [address] [place] [address] Care Team Providers Care Wooden Furniture Polisher Name Role Phone Unavailable Primary Care Provider Unavailabl e Encounter Details Date Type Department Care Team (Late st Contact Info) Description 07/20/2022 Lab Requisition [facility] [address] [place] [address] Sushil Dean MD [address] [place] [address] Encounter for general adult medical examination without [...]
--- OUTSIDE RECORDS SUMMARY | 2025-05-13 08:21 | XMS_ITS | Clinical Summary ---
Author Organization [facility] Address [address] [facility] [address] [place] [address] Phone Care Team Providers Care Federal Appellate Clerk Name Role Phone Unavailable Unavailable Conditions or Problems No information available. Medications No information available. Medications Administered No information available. Allergies, Adverse Reactions, Alerts No information available. Results No information available. Plan of Care No information available. Procedures No information available. Vital Signs No information available. Immunizations No information available. Advance Directives No information available.
--- OUTSIDE RECORDS SUMMARY | 2025-05-13 08:22 | XMS_ITS | Encounter Summary ---
Author Organization [facility] Address [address] [place] [address] Care Team Providers Care Fire Control Mechanic Name Role Phone Provider, No Known [...] 2:25 PM EDT Cherri Grimm RN * [place] Suicide Severity Rating Scale (Screener/Recent Self-Report) Question [...] documented as of this encounter Care Teams Fire Control Mechanic Relationship Specialty Start Date End Date Provider, No Known [facility] [place] [address] PCP - General 05/09/23 documented as of this encounter
--- OUTSIDE RECORDS SUMMARY | 2025-05-13 08:22 | XMS_ITS | Encounter Summary ---
Author Organization Healthcare Address [address] [place] [address] Care Team Providers Care Manager Customer Name Role Phone Unavailable Primary Care Provider Unavailabl e Encounter Details Date Type Department Care Team (Late st Contact Info) Description 07/20/2022 Lab Requisition [facility] [address] [place] [address] Sushil Dean MD [address] [place] [address] Encounter for general adult medical examination without [...] day 4 07/27/2022 11:32 AM EST [facility] Bone Specimen from bone / Unknown 07/20/2022 1:36 PM EST 07/20/2022 5:52 PM EST us Sushil Dean MD LAB MICROBIOLOGY - GENERAL O RDERABLES Final Result Performing Organization Address City/[facility] Co de Phone Number HEALTHCARE LAB [address] [place] [address] * Bone Culture and Gram Stain (07/20/2022 1:36 PM EST) Culture No growth at day 4 2022 9:16 AM EST [facility] Gram Stain Result Rare Polymorphonuclear leukocytes 07/24/2022 9:16 AM EST [facility] Gram Stain Result No organisms seen 07/24/2022 9:16 AM EST [facility] Bone Specimen from bone / Unknown 07/20/2022 1:36 PM EST 07/20/2022 5:52 PM EST us Sushil Dean MD LAB MICROBIOLOGY - GENERAL O RDERABLES Final Result Performing Organization Address City/[facility] Co de Phone Number [facility]ALTH[facility]ARE [facility] [address] [place] [address] documented in this encounter Visit Diagnoses Diagnosis Encounter for general adult medical examination without abnormal findings documented in this encounter
--- OUTSIDE RECORDS SUMMARY | 2025-05-13 08:22 | XMS_ITS | Encounter Summary ---
Author Organization Healthcare Address [address] [place] [address] Care Team Providers Care Product Safety Test Engineer Name Role Phone Unavailable Primary Care Provider Unavailabl e Encounter Details Date Type Department Care Team (Late st Contact Info) Description 05/17/2023 Lab Requisition [facility] [address] [place] [address] Sushil Dean MD [address] [facility] [address] [place] [address] Encounter for general adult medical examination without [...] O RDERABLES Final Result Performing Organization Address City/[facility] Co de Phone Number [facility] [address] [place] [address] * Bone Culture and Gram Stain (05/17/2023 [...] RDERABLES Final Result Performing Organization Address [facility] Co de Phone Number [facility] [address] [place] [address] documented in this encounter Visit Diagnoses Diagnosis Encounter for general adult medical examination without abnormal findings documented in this encounter
--- OUTSIDE RECORDS SUMMARY | 2025-05-13 08:22 | XMS_ITS | Encounter Summary ---
Author Organization Healthcare Address [address] [place] [address] Care Team Providers Care Manager Of Tax Name Role Phone Unavailable Primary Care Provider Unavailabl e Encounter Details Date Type Department Care Team (Late st Contact Info) Description 08/12/2022 Lab Requisition [facility] [address] [place] [address] Sushil Dean MD [address] [place] [address] Encounter for general adult medical examination without [...] has been identified using the FDA Approved Meal Ticketer CA System The organism value for this [...] City/[facility] [address]/[facility] de Phone Number HEALTHCARE LAB [address] [place] [address] * Bone Culture and Gram Stain (08/12/2022 [...] City/[facility] [address]/[facility] de Phone Number [facility] [address] [place] [address] documented in this encounter Visit Diagnoses Diagnosis Encounter for general adult medical examination without abnormal findings documented in this encounter
--- OUTSIDE RECORDS SUMMARY | 2025-05-13 08:23 | XMS_ITS | Clinical Summary ---
Author Organization Healthcare Address [address] [place] [address] Care Team Providers Care Forming Machine Adjuster Name Role Phone Unavailable Primary Care [...]
[2025-05-13 09:20] VITALS: BP 133/84; PULSE 70; RESP 20; O2SAT 94
== END 2025-05-13 23:59 | disposition home or self-care (01) ==
LOC: INF 08:12
PROVIDERS: PCP Nurse Practitioner Family; Visit Provider Internal Medicine Infectious Disease
DX: L03.311 Cellulitis of abdominal wall (principal); T81.49XA Infection following a procedure, other surgical site, initial encounter
CPT/HCPCS: 96365; J0878

== ENCOUNTER 2025-05-14 08:16 | Outpatient (CLI) | payer MEDICARE, SELFPAY ==
--- OUTSIDE RECORDS SUMMARY | 2023-12-12 04:00 | XMS_ITS ---
Author Organization [facility] Address 1210 [facility] 36 [facility] 2C YVON Sykes [phone] Care Team Providers Care Auto Damage Estimator Name Role Phone Zeeshan Salazar Primary Care Provider Macario Burkett [phone] REASON FOR VISIT 6 Month Check Up Encounters Encounter Location Date Provider Diagnosis [facility] 1210 [facility] [address] [place] [phone] 12/12/2023 Macario Burkett Plan Of Treatment No Information Progress Notes * Won MEDRANO ZeeshanDOB: [birth year] (44 yo M)Acc No.[id number]:12/12/2023 Progress Notes Patient: Won SPANN Provider: Colleen Burkett M.D. :1980 A ge:43 Y S ex:Male Date:12/12/2023 Address:[address] [place] [address] Onel THACKER [id number] Pcp:Zeeshna Salazar Subjective: * Chief Complaints: * 1 . 6 Month Check Up. * Medical History: Objective: * Vitals: Assessment: Plan: * Treatment: * Images: Billing Information: * Visit Code: * Procedure Codes: * Electronic signature of Micaela Burkett MD on 05/14/2025 at 08:23 AM EST Sign off status: Pending * Provider: Colleen Burkett M.D. Date: 12/12/2023 Generated for Nany jorgensen/Elaine/Lisbethitting on: 07/14/2024 08:23 AM EST
--- OUTSIDE RECORDS SUMMARY | 2025-04-04 15:10 | XMS_ITS | Encounter Summary ---
Author Organization [facility] Address [address] [place] [address] Care Team Providers Care Tool Die Maker Name Role Phone Provider, No Known Primary Care Provider Unavail able Reason for Visit * Reason Comments Leg Swelling * Auth/Cert Specialty Diagnoses / Procedures Referred By Contlevy t Referred To Contact Diagnoses Right BKA infection Referral ID Status Reason Start Date Expiration Date Visits Re quested Visits Authorized [id number] 1 1 Encounter Details Date Type Department Care Team (Late st Contact Info) Description 04/04/2025 4:10 PM EDT - 04/11/2025 1:58 PM EDT Hospital Encounter [address] [place] [address] Mario Crowley, [address] [place] [address] Leonora Shepherd MD [address] [address] Jason Álvarez DO [address] [address] Jadyn Richardson DO [address] [address] Cellulitis of right lower extremity (Primary Dx); Below-knee amputation of right lower extremity, initial encounter; Right BKA infection Discharge Disposition: Home or Self Care Social History Tobacco Use Types Packs/Day Years Used Date Smoking Tobacco: Never Smokeless Tobacco: Never Tobacco Cessation:Counseling Given: Not Answered Alcohol Use Standard Drinks/Week Comments Not Currently 0 (1 standard drink = 0.6 oz pur e alcohol) [facility] Utilities Answer Date Recorded In the past 12 months has th e [employer], gas, oil, or water company threatened to [...] or training? Not on file Preferred Language Papua [place]inean 04/07/2025 Sex and Gender Information Value Date [...] 2:25 PM EDT Cherri Grimm RN * [place] Suicide Severity Rating Scale (Screener/Recent Self-Report) Question [...] from the original note were not included. [facility] Medicine Services DISCHARGE SUMMARY Patient Name: [...] Date/Time Wound Culture - Swab, Leg, Right [[id number]] (Abnormal) (Susceptibility) Collected: 04/07/252106 Lab Status: Final [...] Units Date/Time FL C Arm During Surgery [[id number]] Resulted: 04/07/252137 Updated: 04/07/252137 Narrative: This procedure was auto-finalized with no dictation required. MRI Tibia Fibula Right With & Without Contrast [[id number]] Collected: 04/07/25 0938 Updated: 04/07/25 1001 Narrative: [...] Buenrostro 04/07/2025 9:58 AM EDT Workstation ID: [id number] MRI Tibia Fibula Right With & Without Contrast [[id number]] Collected: 04/04/252256 Updated: 04/04/252302 Narrative: MRI TIBIA [...] represent a small area of phlegmonous change ([id number] image 10) measuring approximately 1.6 cm which [...] MD 04/04/2025 11:00 PM EDT Workstation ID: [id number] Pending Labs Order Current Status Fungus Culture [...] FLOMAX 1 capsule, Nightly Stop These Medications [facility] capsule doxycycline 100 MG tablet Commonly [...] Male) Date of 1980 Social Security Number [id number] [place] [address] Sikh Unknown Marital Status Unknown Admission Date 04/04/2025 Admission Type Emergency Admitting Provider Jadyn Richardson DO Attending Provider Jadyn Richardson DO Department, Room/Bed [address], S565/1 Discharge Date Discharge Disposition Discharge [...] Group [place] [id number] Payor Plan Address Payor Plan Phone Number Payor Plan Fax Number Effective Dates [employer] [address] [address] 08/10/2023 - None Entered [place] [address] Subscriber Name Subscriber Date Member ID WON DENNIS 1980 [id number] Emergency Contacts Nuclear Control Room Operator (Rel.) Home Phone Work Phone Mobile Phone Avril Dennis (Spouse) -- -- [phone] LewRobert (Relative) -- -- [phone] [place] [facility] [address] Patient: ROOM: [facility] Won Dennis [address] [place] [facility] [address] : 1980 SSN: [id number] Sex: M PCP: Provider, No Known Emergency Contact Information Name Relation Home Work Mobile Avril Dennis Spouse [phone] Other Contacts Name Relation Home Work Mobile Robert Hackett Relative [phone] INSURANCE PAYOR PLAN [employer] # SUBSCRIBER ID Primary: Secondary: MEDICARE [employer]ICA[place] [id number] Admitting Diagnosis: 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] Order Date: Apr 09, 2025 Case Management Soap Inspector Consult (Order ID: [id number]) Diagnosis: Priority: Routine Expected Date: Expiration Date: Interval: Once Count: Comments: Outpatient orders: 1. Outpatient intravenous antibiotic therapy: Daptomycin 800 mg IV daily to be supplied by [facility] 2. Home health to perform [...] INFECTIOUS DISEASE Progress Note Won Dennis 1980 [id number] Date of Consult: 04/10/2025 Admission Date: 04/04/2025 [...] which prompted him to seek treatment at [facility]. He is known to Dr. Dean. He [...] Jr., MD, 20 mg at 04/09/25906 heparin 09063 units/250 mL (100 units/mL) in 0.45 % [...] Units Date/Time FL C Arm During Surgery [[id number]] Resulted: 04/07/252137 Updated: 04/07/252137 Narrative: This procedure was auto-finalized with no dictation required. MRI Tibia Fibula Right With & Without Contrast [[id number]] Collected: 04/07/25 0938 Updated: 04/07/25 1001 Narrative: [...] Chitra 04/07/2025 9:58 AM EDT Workstation ID: [id number] Impression: Recurrent Right BKA stump abscess/cellulitis- this [...] discussed his disposition with the pharmacist at [facility] today. I will sign off Outpatient orders: 1. Outpatient intravenous antibiotic therapy: Daptomycin 800 mg IV daily to be supplied by [facility] 2. Home health to perform weekly [...] Time: 04/10/251323 Signed Expand All Collapse All [facility] Medicine Services PROGRESS NOTE Patient Name: [...] Date/Time Wound Culture - Swab, Leg, Right [[id number]] (Abnormal) (Susceptibility) Collected: 04/07/252106 Lab Status: Final [...] Row Name 04/06/25 1143 Sit-Stand Transfer Sit-Stand [place] (Transfers) modified independence -LM Comment, (Sit-Stand Transfer) Pt stood from recliner. Not holding onto walker, pt able to pull his pants up while balancing on his one leg. -LM Row Name 04/06/25 1143 Gait/Stairs (Locomotion) [place] Level (Gait) modified independence -LM Distance in [...] Nurse Physical Therapy Education Title: PT OT MACHINE STRIPPER CUTTER Therapies (Done) Topic: Physical Therapy (Done) Point: [...] Description Service Date Service Provider Modifiers Qty [id number] PT EVAL LOW COMPLEXITY 3 04/06/2025 Susan [...] mg Daily 04/05/2025 -- Route: Oral heparin 11890 units/250 mL (100 units/mL) in 0.45 % [...] -- Admin Instructions: Open Order & Select [facility] Electrolyte Replacement Protocol Algorithm [...] Dean MD April 21 vs April 22 [facility] [address], [address] [facility], [address] Please schedule at [phone] VONDA Garcia 04/11/25 08:32 EDT Cosigned by Sushil Dean Jr., MD at 04/19/2025 10:33 AM EDT Associated attestation - Sushil Dean Jr., MD - 04/19/2025 10:33 AM EDT I have reviewed this documentation and agree. * Rosario Hill APRN - 04/10/2025 1:24 PM EDT Images from the original note were not included. [facility] Medicine Services PROGRESS NOTE Patient Name: [...] Date/Time Wound Culture - Swab, Leg, Right [[id number]] (Abnormal) (Susceptibility) Collected: 04/07/252106 Lab Status: Final [...] mg Daily 04/05/2025 -- Route: Oral heparin 18882 units/250 mL (100 units/mL) in 0.45 % [...] -- Admin Instructions: Open Order & Select [facility] Electrolyte Replacement Protocol Algorithm [...] -- Admin Instructions: Open Order & Select [facility] Electrolyte Replacement Protocol Algorithm [...] -- Admin Instructions: Open Order & Select [facility] Electrolyte Replacement Protocol Algorithm [...] Dean MD April 21 vs April 22 [facility] [address], [address] [facility], [address] Please schedule at [phone] VONDA Garcia 04/10/25 09:01 EDT Cosigned by Sushil Dean Jr., MD at 04/19/2025 10:33 AM EDT Associated attestation - Sushil Dean Jr., MD - 04/19/2025 10:33 AM EDT I have reviewed this documentation and agree. * Carlton Mead MD - 04/10/2025 7:38 AM EDT Images from the original note were not included. INFECTIOUS DISEASE Progress Note Won Dennis 1980 [id number] Date of Consult: 04/10/2025 Admission Date: 04/04/2025 [...] which prompted him to seek treatment at [facility]. He is known to Dr. Dean. He [...] Jr., MD, 20 mg at 04/09/25906 heparin 60178 units/250 mL (100 units/mL) in 0.45 % [...] vancomycin 2750 mg/500 mL 0.9% NS IVPB ([facility]) Ordering Provider: Mario Crowley, [...] Units Date/Time FL C Arm During Surgery [[id number]] Resulted: 04/07/252137 Updated: 04/07/252137 Narrative: This procedure was auto-finalized with no dictation required. MRI Tibia Fibula Right With & Without Contrast [[id number]] Collected: 04/07/25 0938 Updated: 04/07/25 1001 Narrative: [...] Buenrostro 04/07/2025 9:58 AM EDT Workstation ID: [id number] Impression: Recurrent Right BKA stump abscess/cellulitis- this [...] discussed his disposition with the pharmacist at [facility] today. I will sign off Outpatient orders: 1. Outpatient intravenous antibiotic therapy: Daptomycin 800 mg IV daily to be supplied by [facility] 2. Home health to perform weekly [...] 07:38 EDT * Yaya Hamiltonn, [facility] - 04/10/2025 7:17 AM EDT [...] from the original note were not included. [facility] Medicine Services PROGRESS NOTE Patient Name: [...] Date/Time Wound Culture - Swab, Leg, Right [[id number]] (Abnormal) Collected: 04/07/252106 Lab Status: Preliminary result [...] Preeti 04/09/25 * Larisa Hamilton [facility] - 04/09/2025 11:36 AM EDT [...] mg Daily 04/05/2025 -- Route: Oral heparin 07155 units/250 mL (100 units/mL) in 0.45 % [...] -- Admin Instructions: Open Order & Select [facility] Electrolyte Replacement Protocol Algorithm [...] -- Admin Instructions: Open Order & Select [facility] Electrolyte Replacement Protocol Algorithm [...] -- Admin Instructions: Open Order & Select [facility] Electrolyte Replacement Protocol Algorithm [...] in 2 weeks for incision check, radiographs [facility] [address], [address] [facility], [address] Please schedule at [phone] VONDA Garcia 04/09/25 09:18 EDT Cosigned by Sushil Dean Jr., MD at 04/19/2025 10:33 AM EDT Associated attestation - Sushil Dean Jr., MD - 04/19/2025 10:33 AM EDT I have reviewed this documentation and agree. * Carlton Mead MD - 04/09/2025 8:25 AM EDT Images from the original note were not included. INFECTIOUS DISEASE Progress Note Won Dennis 1980 [id number] Date of Consult: 04/09/2025 Admission Date: 04/04/2025 [...] which prompted him to seek treatment at [facility]. He is known to Dr. Dean. He [...] IRRIGATION; Surgeon: Sushil Dean Jr., MD; Location: [facility] OR; Service: Orthopedics; Laterality: Right; PLACEMENT OF WOUND VAC Right 04/07/2025 Procedure: WOUND VACUUM ASSISTED CLOSURE; Surgeon: Sushil Dean Jr., MD; Location: [facility] OR; Service: Orthopedics; Laterality: Right; History [...] MD, 20 mg at 04/08/25 0800 heparin 12849 units/250 mL (100 units/mL) in 0.45 % [...] mg, 0.4 mg, Intravenous, Q5 Min PRN, Bneito Dean Jr., MD [COMPLETED] HYDROmorphone (DILAUDID) injection [...] Units Date/Time FL C Arm During Surgery [[id number]] Resulted: 04/07/252137 Updated: 04/07/252137 Narrative: This procedure was auto-finalized with no dictation required. MRI Tibia Fibula Right With & Without Contrast [[id number]] Collected: 04/07/2538 Updated: 04/07/25 1001 Narrative: MRI [...] Buenrostro 04/07/2025 9:58 AM EDT Workstation ID: [id number] Impression: Recurrent Right BKA stump abscess/cellulitis- this [...] mg IV daily to be supplied by [facility] 2. Home health to perform [...] from the original note were not included. [facility] Medicine Services PROGRESS NOTE Patient Name: [...] Buenrostro 04/07/2025 9:58 AM EDT Workstation ID: [id number] I have personally reviewed the therapy plans: [...] DO 04/08/25 * Larisa Hamilton [facility] - 04/08/2025 11:48 AM EDT [...] -- Admin Instructions: Open Order & Select [facility] Electrolyte Replacement Protocol Algorithm [...] mg Daily 04/05/2025 -- Route: Oral heparin 71511 units/250 mL (100 units/mL) in 0.45 % [...] -- Admin Instructions: Open Order & Select [facility] Electrolyte Replacement Protocol Algorithm [...] -- Admin Instructions: Open Order & Select [facility] Electrolyte Replacement Protocol Algorithm [...] -- Admin Instructions: Open Order & Select [facility] Electrolyte Replacement Protocol Algorithm [...] INFECTIOUS DISEASE Progress Note Won Dennis 1980 [id number] Date of Consult: 04/08/2025 Admission Date: 04/04/2025 [...] which prompted him to seek treatment at [facility]. He is known to Dr. Dean. He [...] IRRIGATION; Surgeon: Sushil Dean Jr., MD; Location: [facility] OR; Service: Orthopedics; Laterality: Right; PLACEMENT OF WOUND VAC Right 04/07/2025 Procedure: WOUND VACUUM ASSISTED CLOSURE; Surgeon: Sushil Dean Jr., MD; Location: [facility] OR; Service: Orthopedics; Laterality: Right; History [...] Jr., MD, 20 mg at 04/07/25950 heparin 42104 units/250 mL (100 units/mL) in 0.45 % [...] 4 mg, 4 mg, Translingual, Q6H PRN, uSshil Dean Jr., MD, 4 mg at 04/06/25 [...] Units Date/Time FL C Arm During Surgery [[id number]] Resulted: 04/07/252137 Updated: 04/07/252137 Narrative: This procedure was auto-finalized with no dictation required. MRI Tibia Fibula Right With & Without Contrast [[id number]] Collected: 04/07/2538 Updated: 04/07/25 1001 Narrative: MRI [...] Buenrostro 04/07/2025 9:58 AM EDT Workstation ID: [id number] Impression: 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 (Treated by ID in [place] Dr. Harris). Dr. Torres treated him with [...] from the original note were not included. [facility] Medicine Services PROGRESS NOTE Patient Name: [...] Buenrostro 04/07/2025 9:58 AM EDT Workstation ID: [id number] I have personally reviewed the therapy plans: [...] DO 04/07/25 * Larisa Hamilton [facility] - 04/07/2025 11:56 AM EDT [...] INFECTIOUS DISEASE Progress Note Won Dennis 1980 [id number] Date of Consult: 04/07/2025 Admission Date: 04/04/2025 [...] which prompted him to seek treatment at [facility]. He is known to Dr. Dean. He [...] Application, 1 Application, Topical, Q12H, Ayah Valentin, PEPPER CUTTER, 1 Application at 04/06/252101 DAPTOmycin (CUBICIN) 800 [...] Shepherd MD, 20 mg at 04/06/25899 heparin 51247 units/250 mL (100 units/mL) in 0.45 % NaCl infusion, 18 Units/kg/hr, Intravenous, Titrated, Cherri Beatty, [facility], Last Rate: 24.1 mL/hr at [...] With & Without Contrast - In process [[id number]] Resulted: 04/07/25828 Updated: 04/07/25828 This result has not been signed. Information might be incomplete. 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 (Treated by ID in [place] Dr. Harris). Dr. Torres treated him with [...] mg Daily 04/05/2025 -- Route: Oral heparin 67495 units/250 mL (100 units/mL) in 0.45 % [...] -- Admin Instructions: Open Order & Select [facility] Electrolyte Replacement Protocol Algorithm [...] -- Admin Instructions: Open Order & Select [facility] Electrolyte Replacement Protocol Algorithm [...] 06:07 EDT * Cherri Beatty [facility] - 04/06/2025 1:47 PM EDT [...] from the original note were not included. [facility] Medicine Services PROGRESS NOTE Patient Name: [...] MD 04/04/2025 11:00 PM EDT Workstation ID: [id number] I have personally reviewed the therapy plans: [...] mg Daily 04/05/2025 -- Route: Oral heparin 52218 units/250 mL (100 units/mL) in 0.45 % [...] -- Admin Instructions: Open Order & Select [facility] Electrolyte Replacement Protocol Algorithm [...] INFECTIOUS DISEASE follow up. Won Dennis 1980 [id number] Date of Consult: 04/06/2025 Admission Date: 04/04/2025 [...] which prompted him to seek treatment at [facility]. He is known to Dr. Dean. He [...] Application, 1 Application, Topical, Q12H, Ayah Valentin, PEPPER CUTTER, 1 Application at 04/06/25 0859 DAPTOmycin (CUBICIN) [...] MD, 20 mg at 04/06/25 0900 heparin 31645 units/250 mL (100 units/mL) in 0.45 % NaCl infusion, 18 Units/kg/hr, Intravenous, Titrated, Cherri Beatty [facility], Last Rate: 24.1 mL/hr at [...] Dose Heparin, , Not Applicable, Continuous PRN, Uan Perla, ToñoD Phosphorus Replacement - Follow Nurse [...] Tibia Fibula Right With & Without Contrast [[id number]] Collected: 04/04/252256 Updated: 04/04/252302 Narrative: MRI TIBIA [...] represent a small area of phlegmonous change ([id number] image 10) measuring approximately 1.6 cm which [...] MD 04/04/2025 11:00 PM EDT Workstation ID: [id number] Impression: 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 (Treated by ID in [place] Dr. Harris). Dr. Torres treated him with [...] 16:00 EDT * Cherri Beatty, [facility] - 04/05/2025 3:01 PM EDT [...] from the original note were not included. [facility] Medicine Services PROGRESS NOTE Patient Name: [...] MD 04/04/2025 11:00 PM EDT Workstation ID: [id number] I have personally reviewed the therapy plans: [...] from the original note were not included. [facility] Medicine Services HISTORY AND PHYSICAL Patient [...] MD 04/04/2025 11:00 PM EDT Workstation ID: [id number] Assessment & Plan Assessment & Plan Won [...] 4FR PICC placed by Rhoda Bonner RN [facility], tip verified by 3CG see LDA. * Sushil Dean Jr., MD - 04/05/2025 8:07 AM EDTAssociated Order(s): IP CONSULT TO ORTHOPEDIC SURGERY [facility], [facility] [address] [place] [address] Orthopedic Consult Patient: Won Dennis Date of Admission: 04/04/2025 4:10 PM Date of : 1980 Attending Physician: Jason Álvarez DO Consulting Physician: Sushil Dean Jr, MD Chief Complaint: 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 male admitted to [facility] with 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]. [...] was evaluated in the emergency department in [place], was discharged with instructions for follow-up. He [...] tablet by mouth Daily. 04/03/2025 Morning Lactobacillus-Inulin ([facility] Eyeona) capsule Take 200 mg by mouth Daily. [...] MD 04/04/2025 11:00 PM EDT Workstation ID: [id number] Assessment: Right BKA infection 44-year-old male with [...] DISEASE CONSULT/INITIAL HOSPITAL VISIT Won Dennis 1980 [id number] Date of Consult: 04/05/2025 Admission Date: 04/04/2025 [...] which prompted him to seek treatment at [facility]. He is known to Dr. Dean. 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 (Treated by ID in [place] Dr. Harris). Dr. Torres treated him with [...] Jr., MD - 04/08/2025 3:51 PM EDT [facility] OPERATIVE REPORT PATIENT NAME: Won Dennis DATE OF : 1980 PREOP DIAGNOSIS: Right Right below-knee amputation infection POSTOP DIAGNOSIS: Same. PROCEDURE: Right Right 71909: Secondary closure below-knee amputation SURGEON: Sushil Dean MD OPERATIVE TEAM: Forklift Wheel Loader: Susi Grullon RN Scrub Person: Mary Paredes Scrub Person Extra: Hortencia Toribio Other: Katt Gotti RN; Charis Neville RN ANESTHETIST: Anesthesiologist: Ulises Hoffman MD PRACTICE PERFORMANCE MANAGER: Stan Casillas CRNA Student Nurse Home Care Assistant: Karol Albert SRNA ANESTHESIA: Choice ESTIMATED BLOOD [...] CULTURE (Canceled) Sushil Dean Jr., MD 04/08/25 7664 Description: RIGHT LEG DEEP WOUND FOR CULTURE [...] Jr., MD - 04/07/2025 9:03 PM EDT [facility] [address] [place] [address] OPERATIVE REPORT PATIENT NAME: Won Dennis DATE OF : 1980 PREOP DIAGNOSIS: Right Right below knee amputation stump infection POSTOP DIAGNOSIS: Same. PROCEDURE: Right Right 33047: Incision and drainage of surgical site infection 62890: Debridement of skin, subcutaneous tissue, muscle 07387: Wound vacuum-assisted closure SURGEON: Sushil Dean MD OPERATIVE TEAM: Forklift Wheel Loader: Anum Sanchez RN Scrub Person: Hortencia Toribio; Gerald Ivey RUSSIAN LANGUAGE INSTRUCTOR: Anesthesiologist: Luci Alonso DO ANESTHESIA: General ESTIMATED [...] ago swellling of the area. seen at [facility] yesterday for CT and US, here for [...] this chart in the absence of a electrical tester battery. No orders to display RADIOLOGY: [x] Radiologist's [...] 04/11/2025 1:30 PM EDT Continued Stay Note Lane Patient Name: Won Dennis Today's Date: 04/11/2025 Admit Date: 04/04/2025 Plan: Home with outpatient infusion. Discharge Plan Row Name 04/11/25 1155 Plan Plan Home with outpatient infusion. Final Discharge Disposition Code 01 - home or self-care Final Note Patient discharging today. He is discharging home with outpatient infusion at [facility]. He has an appointment with [facility] at 8:00 am tomorrow. They will do PICC line dressing changes. DEBRA has spoke with Dena at [facility] today multiple times to get setup due [...] to get IV ABX at home with [facility]; however, Medicaid lapsed on 04/08. DEBRA was unaware until this morning that Medicaid has lapsed. Patient explained that he has Medicare A and B. CM spoke with KELLEE and given themhis Medicare number [id number], she sent it to Admission. DEBRA spoke with Kerri, with [facility], and explained that he had Medicare A and B. However, it will not cover home infusion. It will be $64.00 a day out of packet. Patients can go to the Infusion center at [facility], and it will cover the cost as an outpatient. He will need to go there every day for infusion. They will be able to do the patients' PICC line dressing changes and lab work. CM called Dena [facility] Outpatient infusion center they can accept patient and start him. He is known for their facility. The Facility will need to run it through his insurance first. CM faxed the orders over to [facility] at [phone]. CM will follow up with them tomorrow at [facility] to make sure they received [...] with patient at bedside today. [facility] [employer] is at bedside. Patient getting PICC line [...] note were not included. Discharge Planning Assessment Lane Patient Name: Won Dennis Today's Date: 04/07/2025 [...] with family Patient/Family Anticipated Services at Transition onsite case manageraccount manager Anticipated family or friend will provide Discharge Needs Assessment Equipment Currently Used at Home glucometer;shower chair;pulse ox;bp cuff;prosthesis;crutches Equipment Needed After Discharge none Discharge Plan Row Name 04/07/25 1144 Plan Plan Home Patient/Family in Agreement with Plan yes Plan Comments CM spoke with patient at bedside today. Patient lives with and his 5 kids in [facility]. 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 He has walker, cane, shower chair, and crutches. He requested a wheelchair for home. CM will order wheelchair through [employer]. He is not current with home health services. PCP is Dr. Jordan. Insurance is [employer] Medicaid [place]. Patient discharge plan is home with priavte transport. CM will follow for any discharge needs. Final Discharge Disposition Code 01 - home or self-care Continued Care and Services - Admitted Since 04/04/2025 No active coordination exists. Demographic Summary Row Name 04/07/25 1143 General Information Arrived From hospital Preferred Language [place] Functional Status Row Name 04/07/25 1143 Functional [...] 3:4 0 PM EDT Right BKA infection [place] SEC ABDOMINAL WALL SUTURE EVISCERATION/DEHSN 04/08/2025 3:20 [...] CBC Auto Differential (04/11/2025 3:40 AM EDT) [facility] WBC 7.87 3.40 - 10.80 10*3/mm3 04/11/2025 4:02 AM EDT [facility] RBC 4.70 4.14 - 5.80 10*6/mm3 04/11/2025 4:02 AM EDT [facility] Hemoglobin 12.8(L) 13.0 - 17.7 g/dL 04/11/2025 4:02 AM EDT [facility] Hematocrit 40.5 37.5 - 51.0 % 04/11/2025 4:02 AM EDT [facility] MCV 86.2 79.0 - 97.0 fL 04/11/2025 4:02 AM EDT [facility] MCH 27.2 26.6 - 33.0 pg 04/11/2025 4:02 AM EDT [facility] MCHC 31.6 31.5 - 35.7 g/dL 04/11/2025 4:02 AM EDT [facility] RDW 12.9 12.3 - 15.4 % 04/11/2025 4:02 AM EDT [facility] RDW-SD 40.5 37.0 - 54.0 fl 04/11/2025 4:02 AM EDT [facility] MPV 9.2 6.0 - 12.0 fL 04/11/2025 4:02 AM EDT [facility] Platelets 267 140 - 450 10*3/mm3 04/11/2025 4:02 AM [facility] Neutrophil % 59.5 42.7 - 76.0 % 04/11/2025 4:02 AM [facility] Lymphocyte % 26.3 19.6 - 45.3 % 04/11/2025 4:02 AM [facility] Monocyte % 9.3 5.0 - 12.0 % 04/11/2025 4:02 AM [facility] Eosinophil % 4.1 0.3 - 6.2 % 04/11/2025 4:02 AM [facility] Basophil % 0.4 0.0 - 1.5 % 04/11/2025 4:02 AM [facility] Immature Grans % 0.4 0.0 - 0.5 % 04/11/2025 4:02 AM [facility] Neutrophils, Absolute 4.69 1.70 - 7.00 10*3/mm3 04/11/2025 4:02 AM [facility] Lymphocytes, Absolute 2.07 0.70 - 3.10 10*3/mm3 04/11/2025 4:02 AM [facility] Monocytes, Absolute 0.73 0.10 - 0.90 10*3/mm3 04/11/2025 4:02 AM [facility] Eosinophils, Absolute 0.32 0.00 - 0.40 10*3/mm3 04/11/2025 4:02 AM [facility] Basophils, Absolute 0.03 0.00 - 0.20 10*3/mm3 04/11/2025 4:02 AM [facility] Immature Grans, Absolute 0.03 0.00 - 0.05 10*3/mm3 04/11/2025 4:02 AM [facility] nRBC 0.0 0.0 - 0.2 /100 WBC 04/11/2025 4:02 AM [facility] Blood Venipuncture / Unknown 04/11/2025 3:40 AM EDT 04/11/2025 3:59 AM EDT us Sushil Dean Jr., MD LAB BLOOD ORDERABLES Fi nal Result [facility]
[address] [place] [address], * (ABNORMAL) Comprehensive Metabolic Panel (04/11/2025 3:40 AM EDT) Glucose 108(H) 65 - 99 mg/dL 04/11/2025 4:19 AM EDT [facility] BUN 12.5 6.0 - 20.0 mg/dL 04/11/2025 4:19 AM EDT [facility] Creatinine 0.68(L) 0.76 - 1.27 mg/dL 04/11/2025 4:19 AM EDT [facility] Sodium 140 136 - 145 mmol/L 04/11/2025 4:19 AM EDT [facility] Potassium 3.8 3.5 - 5.2 mmol/L 04/11/2025 4:19 AM EDT [facility] Chloride 105 98 - 107 mmol/L 04/11/2025 4:19 AM EDT [facility] CO2 28.2 22.0 - 29.0 mmol/L 04/11/2025 4:19 AM EDT [facility] Calcium 8.2(L) 8.6 - 10.5 mg/dL 04/11/2025 4:19 AM EDT [facility] Total Protein 6.1 6.0 - 8.5 g/dL 04/11/2025 4:19 AM EDT [facility] Albumin 3.1(L) 3.5 - 5.2 g/dL 04/11/2025 4:19 AM EDT [facility] ALT (SGPT) 52(H) 1 - 41 U/L 04/11/2025 4:19 AM EDT [facility] AST (SGOT) 40 1 - 40 U/L 04/11/2025 4:19 AM EDT [facility] Alkaline Phosphatase 99 39 - 117 U/L 04/11/2025 4:19 AM EDT [facility] Total Bilirubin 0.2 0.0 - 1.2 mg/dL 04/11/2025 4:19 AM EDT [facility] Globulin 3.0 gm/dL 04/11/2025 4:19 AM EDT [facility] Comment:Calculated Result A/G Ratio 1.0 g/dL 04/11/2025 4:19 AM EDT [facility] BUN/Creatinine Ratio 18.4 7.0 - 25.0 04/11/2025 4:19 AM EDT [facility] Anion Gap 6.8 5.0 - 15.0 mmol/L 04/11/2025 4:19 AM EDT [facility] eGFR 117.5 >60.0 mL/min/1.7 3 04/11/2025 4:19 AM EDT [facility] Blood Venipuncture / Unknown 04/11/2025 3:40 AM EDT 04/11/2025 3:56 AM EDT [facility] - 04/11/2025 4:19 AM EDT GFR [...] Hill APRN LAB BLOOD ORDERABLES Final Result [facility]
[address] [place] [address], * (ABNORMAL) CBC Auto Differential (04/10/2025 3:46 AM EDT) [facility] WBC 9.60 3.40 - 10.80 10*3/mm3 04/10/2025 3:56 AM EDT [facility] RBC 4.67 4.14 - 5.80 10*6/mm3 04/10/2025 3:56 AM [facility] Hemoglobin 12.9(L) 13.0 - 17.7 g/dL 04/10/2025 3:56 AM EDT [facility] Hematocrit 40.1 37.5 - 51.0 % 04/10/2025 3:56 AM [facility] MCV 85.9 79.0 - 97.0 fL 04/10/2025 3:56 AM [facility] MCH 27.6 26.6 - 33.0 pg 04/10/2025 3:56 AM [facility] MCHC 32.2 31.5 - 35.7 g/dL 04/10/2025 3:56 AM [facility] RDW 12.9 12.3 - 15.4 % 04/10/2025 3:56 AM [facility] RDW-SD 40.5 37.0 - 54.0 fl 04/10/2025 3:56 AM [facility] MPV 9.5 6.0 - 12.0 fL 04/10/2025 3:56 AM [facility] Platelets 227 140 - 450 10*3/mm3 04/10/2025 3:56 AM EDT [facility] Neutrophil % 59.1 42.7 - 76.0 % 04/10/2025 3:56 AM [facility] Lymphocyte % 29.0 19.6 - 45.3 % 04/10/2025 3:56 AM [facility] Monocyte % 8.1 5.0 - 12.0 % 04/10/2025 3:56 AM [facility] Eosinophil % 3.2 0.3 - 6.2 % 04/10/2025 3:56 AM EDT [facility] Basophil % 0.4 0.0 - 1.5 % 04/10/2025 3:56 AM EDT [facility] Immature Grans % 0.2 0.0 - 0.5 % 04/10/2025 3:56 AM EDT [facility] Neutrophils, Absolute 5.67 1.70 - 7.00 10*3/mm3 04/10/2025 3:56 AM EDT [facility] Lymphocytes, Absolute 2.78 0.70 - 3.10 10*3/mm3 04/10/2025 3:56 AM EDT [facility] Monocytes, Absolute 0.78 0.10 - 0.90 10*3/mm3 04/10/2025 3:56 AM EDT [facility] Eosinophils, Absolute 0.31 0.00 - 0.40 10*3/mm3 04/10/2025 3:56 AM EDT [facility] Basophils, Absolute 0.04 0.00 - 0.20 10*3/mm3 04/10/2025 3:56 AM EDT [facility] Immature Grans, Absolute 0.02 0.00 - 0.05 10*3/mm3 04/10/2025 3:56 AM EDT [facility] nRBC 0.0 0.0 - 0.2 /100 WBC 04/10/2025 3:56 AM EDT [facility] Blood Venipuncture / Unknown 04/10/2025 3:46 AM EDT 04/10/2025 3:53 AM EDT Jason Álvarez DO LAB BLOOD ORDERABLES Final Resul t [facility]
[address] [place] [address], * (ABNORMAL) Basic Metabolic Panel (04/10/2025 3:46 AM EDT) [facility] Glucose 125(H) 65 - 99 mg/dL 04/10/2025 4:20 AM EDT [facility] BUN 15.9 6.0 - 20.0 mg/dL 04/10/2025 4:20 AM T [facility] Creatinine 0.77 0.76 - 1.27 mg/dL 04/10/2025 4:20 AM T [facility] Sodium 137 136 - 145 mmol/L 04/10/2025 4:20 AM [facility] Potassium 3.9 3.5 - 5.2 mmol/L 04/10/2025 4:20 AM EDT [facility] Chloride 102 98 - 107 mmol/L 04/10/2025 4:20 AM EDT [facility] CO2 26.9 22.0 - 29.0 mmol/L 04/10/2025 4:20 AM [facility] Calcium 7.9(L) 8.6 - 10.5 mg/dL 04/10/2025 4:20 AM [facility] BUN/Creatinine Ratio 20.6 7.0 - 25.0 04/10/2025 4:20 AM [facility] Anion Gap 8.1 5.0 - 15.0 mmol/L 04/10/2025 4:20 AM [facility] eGFR 113.2 >60.0 mL/min/1.7 3 04/10/2025 4:20 AM [facility] Blood Venipuncture / Unknown 04/10/2025 3:46 AM EDT 04/10/2025 3:52 AM EDT [facility] - 04/10/2025 4:20 AM EDT GFR [...] DO LAB BLOOD ORDERABLES Final Resul t [facility]
[address] [place] [address], * Heparin Anti-Xa (04/10/2025 3:46 AM EDT) Heparin Anti-Xa (UFH) 0.35 0.30 - 0.70 IU/ml 04/10/2025 4:23 AM EDT [facility] Blood Venipuncture / Unknown 04/10/2025 3:46 AM EDT 04/10/2025 3:53 AM EDT [facility] LAB BLOOD ORDERABLES Final R esult Performing Organization Address City/[facility]/ZIP Co de Phone Number [facility]
[address] [place] [address], * Heparin Anti-Xa (04/09/2025 10:05 AM EDT) Heparin Anti-Xa (UFH) 0.36 0.30 - 0.70 IU/ml 04/09/2025 11:12 AM EDT [facility] Blood Venipuncture / Unknown 04/09/2025 10:05 AM EDT 04/09/2025 10:47 AM EDT [facility] LAB BLOOD ORDERABLES Final R esult [facility]
[address] [place] [address], * (ABNORMAL) CBC Auto Differential (04/09/2025 4:18 AM EDT) WBC 11.00(H) 3.40 - 10.80 10*3/mm3 04/09/2025 4:50 AM [facility] RBC 4.70 4.14 - 5.80 10*6/mm3 04/09/2025 4:50 AM EDT [facility] Hemoglobin 13.0 13.0 - 17.7 g/dL 04/09/2025 4:50 AM EDT [facility] Hematocrit 40.4 37.5 - 51.0 % 04/09/2025 4:50 AM EDT [facility] MCV 86.0 79.0 - 97.0 fL 04/09/2025 4:50 AM EDT [facility] MCH 27.7 26.6 - 33.0 pg 04/09/2025 4:50 AM [facility] MCHC 32.2 31.5 - 35.7 g/dL 04/09/2025 4:50 AM [facility] RDW 12.8 12.3 - 15.4 % 04/09/2025 4:50 AM [facility] RDW-SD 39.9 37.0 - 54.0 fl 04/09/2025 4:50 AM [facility] MPV 10.0 6.0 - 12.0 fL 04/09/2025 4:50 AM [facility] Platelets 211 140 - 450 10*3/mm3 04/09/2025 4:50 AM [facility] Neutrophil % 74.8 42.7 - 76.0 % 04/09/2025 4:50 AM EDT [facility] Lymphocyte % 15.4(L) 19.6 - 45.3 % 04/09/2025 4:50 AM EDT [facility] Monocyte % 8.5 5.0 - 12.0 % 04/09/2025 4:50 AM EDT [facility] Eosinophil % 0.6 0.3 - 6.2 % 04/09/2025 4:50 AM [facility] Basophil % 0.4 0.0 - 1.5 % 04/09/2025 4:50 AM EDT [facility] Immature Grans % 0.3 0.0 - 0.5 % 04/09/2025 4:50 AM EDT [facility] Neutrophils, Absolute 8.23(H) 1.70 - 7.00 10*3/mm3 04/09/2025 4:50 AM EDT [facility] Lymphocytes, Absolute 1.69 0.70 - 3.10 10*3/mm3 04/09/2025 4:50 AM EDT [facility] Monocytes, Absolute 0.94(H) 0.10 - 0.90 10*3/mm3 04/09/2025 4:50 AM EDT [facility] Eosinophils, Absolute 0.07 0.00 - 0.40 10*3/mm3 04/09/2025 4:50 AM EDT [facility] Basophils, Absolute 0.04 0.00 - 0.20 10*3/mm3 04/09/2025 4:50 AM EDT [facility] Immature Grans, Absolute 0.03 0.00 - 0.05 10*3/mm3 04/09/2025 4:50 AM EDT [facility] nRBC 0.0 0.0 - 0.2 /100 WBC 04/09/2025 4:50 AM EDT [facility] Blood Venipuncture / Unknown 04/09/2025 4:18 AM EDT 04/09/2025 4:31 AM EDT Sushil Dean Jr., MD LAB BLOOD ORDERABLES Fi nal Result [facility]
[address] [place] [address], * Heparin Anti-Xa (04/09/2025 4:18 AM EDT) Heparin Anti-Xa (UFH) 0.41 0.30 - 0.70 IU/ml 04/09/2025 4:53 AM EDT [facility] Blood Venipuncture / Unknown 04/09/2025 4:18 AM EDT 04/09/2025 4:31 AM EDT Una Wheeleroy PharmD LAB BLOOD ORDERABLES Final R esult [facility]
[address] [place] [address], * (ABNORMAL) Basic Metabolic Panel (04/09/2025 4:18 AM EDT) Pathologist [facility] Glucose 147(H) 65 - 99 mg/dL 04/09/2025 5:33 AM EDT [facility] BUN 23.0(H) 6.0 - 20.0 mg/dL 04/09/2025 5:33 AM EDT [facility] Creatinine 1.15 0.76 - 1.27 mg/dL 04/09/2025 5:33 AM EDT [facility] Sodium 135(L) 136 - 145 mmol/L 04/09/2025 5:33 AM EDT [facility] Potassium 4.2 3.5 - 5.2 mmol/L 04/09/2025 5:33 AM EDT [facility] Chloride 100 98 - 107 mmol/L 04/09/2025 5:33 AM EDT [facility] CO2 26.0 22.0 - 29.0 mmol/L 04/09/2025 5:33 AM EDT [facility] Calcium 8.2(L) 8.6 - 10.5 mg/dL 04/09/2025 5:33 AM EDT [facility] BUN/Creatinine Ratio 20.0 7.0 - 25.0 04/09/2025 5:33 AM EDT [facility] Anion Gap 9.0 5.0 - 15.0 mmol/L 04/09/2025 5:33 AM EDT [facility] eGFR 80.5 >60.0 mL/min/1.7 3 04/09/2025 5:33 AM EDT [facility] Blood Venipuncture / Unknown 04/09/2025 4:18 AM EDT 04/09/2025 4:29 AM EDT Narrative [facility] - 04/09/2025 5:33 AM [...] ORDERABLES Fi nal Result Performing Organization Address [facility] Co de Phone Number [facility]
[address] [place] [address], * Wound Culture - Swab, Leg, Right (04/08/2025 3:40 PM EDT) Wound Culture No growth at 3 days ALIZA 04/11/2025 10:40 AM EDT [facility] Gram Stain Few (2+) WBCs seen 04/11/2025 10:40 AM EDT [facility] Gram Stain No organisms seen 04/11/2025 10:40 AM EDT [facility] Swab Structure of right lower limb / Unknown 04/08/2025 3:40 PM EDT 04/08/2025 8:05 PM EDT Sushil Dean Jr., MD MICROBIOLOGY - GENERAL ORDERABLES Final Result Performing Organization Address City/[facility]/ZIP Co de Phone Number [facility]
[address] [phone], [facility]
[address] [place] [address], * Anaerobic Culture - Swab, Leg, Right (04/08/2025 3:40 PM EDT) Pathologist [facility] Anaerobic Culture No anaerobes isolated at 5 days ALIZA 04/13/2025 7:24 AM EDT [facility] Swab Structure of right lower limb / Unknown 04/08/2025 3:40 PM EDT 04/08/2025 8:05 PM EDT Sushil Dean Jr., MD MICROBIOLOGY - GENERAL ORDERABLES Final Result Performing Organization Address City/[facility] Co de Phone Number [facility]
[address] [place] [address], [place] [phone] * Scan Slide (04/08/2025 8:41 AM EDT) Pathologist [facility] RBC Morphology Normal Normal 04/08/2025 11:02 AM EDT [facility] WBC Morphology Normal Normal 04/08/2025 11:02 AM EDT [facility] Platelet Estimate Adequate Normal 04/08/2025 11:02 AM EDT [facility] Clumped Platelets Present None Seen 04/08/2025 11:02 AM EDT [facility] Blood Venipuncture / Unknown 04/08/2025 8:41 AM EDT 04/08/2025 9:10 AM EDT Una LundbergD LAB BLOOD ORDERABLES Final R esult Performing Organization Address City/[facility]/ZIP Co de Phone Number [facility]
[address] [place] [address], [place] [phone] * (ABNORMAL) CBC Auto Differential (04/08/2025 8:41 AM EDT) Pathologist [facility] WBC 10.07 3.40 - 10.80 10*3/mm3 04/08/2025 11:02 AM EDT [facility] RBC 5.01 4.14 - 5.80 10*6/mm3 04/08/2025 11:02 AM EDT [facility] Hemoglobin 14.0 13.0 - 17.7 g/dL 04/08/2025 11:02 AM [facility] Hematocrit 42.7 37.5 - 51.0 % 04/08/2025 11:02 AM [facility] MCV 85.2 79.0 - 97.0 fL 04/08/2025 11:02 AM [facility] MCH 27.9 26.6 - 33.0 pg 04/08/2025 11:02 AM [facility] MCHC 32.8 31.5 - 35.7 g/dL 04/08/2025 11:02 AM [facility] RDW 12.6 12.3 - 15.4 % 04/08/2025 11:02 AM [facility] RDW-SD 38.9 37.0 - 54.0 fl 04/08/2025 11:02 AM [facility] MPV 11.0 6.0 - 12.0 fL 04/08/2025 11:02 AM [facility] Platelets 118(L) 140 - 450 10*3/mm3 04/08/2025 11:02 AM [facility] Neutrophil % 85.1(H) 42.7 - 76.0 % 04/08/2025 11:02 AM [facility] Lymphocyte % 9.3(L) 19.6 - 45.3 % 04/08/2025 11:02 AM [facility] Monocyte % 4.6(L) 5.0 - 12.0 % 04/08/2025 11:02 AM [facility] Eosinophil % 0.3 0.3 - 6.2 % 04/08/2025 11:02 AM [facility] Basophil % 0.2 0.0 - 1.5 % 04/08/2025 11:02 AM [facility] Immature Grans % 0.5 0.0 - 0.5 % 04/08/2025 11:02 AM [facility] Neutrophils, Absolute 8.57(H) 1.70 - 7.00 10*3/mm3 04/08/2025 11:02 AM EDT [facility] Lymphocytes, Absolute 0.94 0.70 - 3.10 10*3/mm3 04/08/2025 11:02 AM EDT [facility] Monocytes, Absolute 0.46 0.10 - 0.90 10*3/mm3 04/08/2025 11:02 AM EDT [facility] Eosinophils, Absolute 0.03 0.00 - 0.40 10*3/mm3 04/08/2025 11:02 AM EDT [facility] Basophils, Absolute 0.02 0.00 - 0.20 10*3/mm3 04/08/2025 11:02 AM EDT [facility] Immature Grans, Absolute 0.05 0.00 - 0.05 10*3/mm3 04/08/2025 11:02 AM EDT [facility] nRBC 0.0 0.0 - 0.2 /100 WBC 04/08/2025 11:02 AM EDT [facility] Blood Venipuncture / Unknown 04/08/2025 8:41 AM EDT 04/08/2025 9:10 AM EDT Una Perla PharmD LAB BLOOD ORDERABLES Final R esult [facility]
[address] [place] [address], * (ABNORMAL) Basic Metabolic Panel (04/08/2025 8:41 AM EDT) Glucose 125(H) 65 - 99 mg/dL 04/08/2025 9:51 AM EDT [facility] BUN 13.2 6.0 - 20.0 mg/dL 04/08/2025 9:51 AM EDT [facility] Creatinine 0.69(L) 0.76 - 1.27 mg/dL 04/08/2025 9:51 AM EDT [facility] Sodium 136 136 - 145 mmol/L 04/08/2025 9:51 AM EDT [facility] Potassium 4.6 3.5 - 5.2 mmol/L 04/08/2025 9:51 AM EDT [facility] Chloride 102 98 - 107 mmol/L 04/08/2025 9:51 AM EDT [facility] CO2 23.5 22.0 - 29.0 mmol/L 04/08/2025 9:51 AM EDT [facility] Calcium 8.4(L) 8.6 - 10.5 mg/dL 04/08/2025 9:51 AM EDT [facility] BUN/Creatinine Ratio 19.1 7.0 - 25.0 04/08/2025 9:51 AM EDT [facility] Anion Gap 10.5 5.0 - 15.0 mmol/L 04/08/2025 9:51 AM EDT [facility] eGFR 117.0 >60.0 mL/min/1.7 3 04/08/2025 9:51 AM EDT [facility] Blood Venipuncture / Unknown 04/08/2025 8:41 AM EDT 04/08/2025 9:09 AM EDT [facility] - 04/08/2025 9:51 AM EDT GFR [...] Jr., MD LAB BLOOD ORDERABLES nal Result [facility]
[address] [place] [address], * Heparin Anti-Xa (04/08/2025 8:41 AM EDT) Heparin Anti-Xa (UFH) 0.33 0.30 - 0.70 IU/ml 04/08/2025 9:40 AM EDT [facility] Blood Venipuncture / Unknown 04/08/2025 8:41 AM EDT 04/08/2025 9:10 AM EDT Sushil Dean Jr., MD LAB BLOOD ORDERABLES Fi nal Result [facility]
[address] [place] [address], * FL C Arm During Surgery (04/07/2025 9:32 PM EDT) Narrative SYSTEMGENERATED, DOCUMENTATION - 04/07/2025 9:38 PM EDT This procedure was auto-finalized with no dictation required. Sushil Dean Jr., MD IMG FLUOROSCOPY ORDERAB LES Final Result * Wound Culture - Swab, Leg, Right (04/07/2025 9:14 PM EDT) Wound Culture No growth at 3 days ALIZA 04/11/2025 10:40 AM EDT [facility] Gram Stain Occasional WBCs seen 04/11/2025 10:40 AM EDT [facility] Gram Stain No organisms seen 04/11/2025 10:40 AM EDT [facility] Swab Structure of right lower limb / Unknown Collection / Unknown 04/07/2025 9:14 PM EDT 04/08/2025 4:36 AM EDT Sushil Dean Jr., MD MICROBIOLOGY - GENERAL ORDERABLES Final Result [facility]
[address] [place] [address], [facility]
[address] [place] [address], * Anaerobic Culture - Swab, Leg, Right (04/07/2025 9:14 PM EDT) Anaerobic Culture No anaerobes isolated at 5 days ALIZA 04/13/2025 7:21 AM EDT [facility] Swab Structure of right lower limb / Unknown Collection / Unknown 04/07/2025 9:14 PM EDT 04/08/2025 4:36 AM EDT Sushil Dean Jr., MD MICROBIOLOGY - GENERAL ORDERABLES Final Result Performing Organization Address City/[facility]/ZIP Co de Phone Number [facility]
[address] [place] [address], * Anaerobic Culture - Tissue, Leg (04/07/2025 9:13 PM EDT) Anaerobic Culture No anaerobes isolated at 5 days ALIZA 04/13/2025 7:21 AM EDT [facility] Tissue Lower limb structure / Unknown Collection / Unknown 04/07/2025 9:13 PM EDT 04/08/2025 4:54 AM EDT Jason Álvarez DO MICROBIOLOGY - GENERAL ORDERABLE S Final Result [facility]
[address] [place] [address], * Tissue / Bone Culture - Tissue, Leg, Right (04/07/2025 9:13 PM EDT) Tissue Culture No growth at 3 days ALIZA 04/11/2025 10:36 AM EDT [facility] Gram Stain Rare (1+) WBCs seen 04/11/2025 10:36 AM EDT [facility] Gram Stain No organisms seen 04/11/2025 10:36 AM EDT [facility] Tissue Structure of right lower limb / Unknown 04/07/2025 9:13 PM EDT 04/08/2025 4:54 AM EDT Sushil Dean Jr., MD MICROBIOLOGY - GENERAL ORDERABLES Final Result Performing Organization Address City/[facility]/ZIP Co de Phone Number [facility]
[address] [place] [address], [place] [phone] [facility]
[address] [place] [address], [place] [phone] * (ABNORMAL) Wound Culture - Swab, Leg, Right (04/07/2025 9:07 PM EDT) Wound Culture Light growth (2+) Staphylococcus aureus, MRSA(A) ALIZA 04/10/2025 10:38 AM EDT [facility] Comment: Methicillin resistant Staphylococcus aureus, Patient may be an isolation risk. Gram Stain Few (2+) WBCs seen 04/10/2025 10:38 AM EDT [facility] Gram Stain No organisms seen 10:38 AM EDT [facility] Swab Structure of right [...] MD MICROBIOLOGY - GENERAL ORDERABLES Final Result [facility]
[address] [place] [address], [facility]
[address] [place] [address], * Anaerobic Culture - Swab, Leg, Right (04/07/2025 9:07 PM EDT) Pathologist [facility] Anaerobic Culture No anaerobes isolated at 5 days ALIZA 04/13/2025 7:21 AM EDT [facility] Swab Structure of right lower limb / Unknown Collection / Unknown 04/07/2025 9:07 PM EDT 04/08/2025 4:36 AM EDT Sushil Dean Jr., MD MICROBIOLOGY - GENERAL ORDERABLES Final Result Performing Organization Address [facility] Co de Phone Number [facility]
[address] [place] [address], * Heparin Anti-Xa (04/07/2025 9:10 AM EDT) [facility] Heparin Anti-Xa (UFH) 0.30 0.30 - 0.70 IU/ml 04/07/2025 10:12 AM EDT [facility] Blood Venipuncture / Unknown 04/07/2025 9:10 AM EDT 04/07/2025 9:38 AM EDT Una LundbergD LAB BLOOD ORDERABLES Final R esult Performing Organization Address City/[facility]/ZIP Co de Phone Number [facility]
[address] [place] [address], * (ABNORMAL) CBC Auto Differential (04/07/2025 9:10 AM EDT) Pathologist [facility] WBC 8.63 3.40 - 10.80 10*3/mm3 04/07/2025 9:50 AM EDT [facility] RBC 5.23 4.14 - 5.80 10*6/mm3 04/07/2025 9:50 AM [facility] Hemoglobin 14.7 13.0 - 17.7 g/dL 04/07/2025 9:50 AM [facility] Hematocrit 44.8 37.5 - 51.0 % 04/07/2025 9:50 AM [facility] MCV 85.7 79.0 - 97.0 fL 04/07/2025 9:50 AM EDT [facility] MCH 28.1 26.6 - 33.0 pg 04/07/2025 9:50 AM [facility] MCHC 32.8 31.5 - 35.7 g/dL 04/07/2025 9:50 AM [facility] RDW 12.8 12.3 - 15.4 % 04/07/2025 9:50 AM [facility] RDW-SD 39.9 37.0 - 54.0 fl 04/07/2025 9:50 AM [facility] MPV 10.8 6.0 - 12.0 fL 04/07/2025 9:50 AM [facility] Platelets 149 140 - 450 10*3/mm3 04/07/2025 9:50 AM [facility] Neutrophil % 66.7 42.7 - 76.0 % 04/07/2025 9:50 AM [facility] Lymphocyte % 20.5 19.6 - 45.3 % 04/07/2025 9:50 AM EDT [facility] Monocyte % 9.8 5.0 - 12.0 % 04/07/2025 9:50 AM [facility] Eosinophil % 2.1 0.3 - 6.2 % 04/07/2025 9:50 AM [facility] Basophil % 0.3 0.0 - 1.5 % 04/07/2025 9:50 AM [facility] Immature Grans % 0.6(H) 0.0 - 0.5 % 04/07/2025 9:50 AM EDT [facility] Neutrophils, Absolute 5.75 1.70 - 7.00 10*3/mm3 04/07/2025 9:50 AM EDT [facility] Lymphocytes, Absolute 1.77 0.70 - 3.10 10*3/mm3 04/07/2025 9:50 AM EDT [facility] Monocytes, Absolute 0.85 0.10 - 0.90 10*3/mm3 04/07/2025 9:50 AM EDT [facility] Eosinophils, Absolute 0.18 0.00 - 0.40 10*3/mm3 04/07/2025 9:50 AM EDT [facility] Basophils, Absolute 0.03 0.00 - 0.20 10*3/mm3 04/07/2025 9:50 AM EDT [facility] Immature Grans, Absolute 0.05 0.00 - 0.05 10*3/mm3 04/07/2025 9:50 AM EDT [facility] nRBC 0.0 0.0 - 0.2 /100 WBC 04/07/2025 9:50 AM EDT [facility] Blood Venipuncture / Unknown 04/07/2025 9:10 AM EDT 04/07/2025 9:38 AM EDT us Jason Álvarez DO LAB BLOOD ORDERABLES Final Resul t [facility]
[address] [place] [address], * (ABNORMAL) Basic Metabolic Panel (04/07/2025 9:10 AM EDT) Glucose 112(H) 65 - 99 mg/dL 04/07/2025 10:19 AM EDT [facility] BUN 13.1 6.0 - 20.0 mg/dL 04/07/2025 10:19 AM EDT [facility] Creatinine 0.77 0.76 - 1.27 mg/dL 04/07/2025 10:19 AM EDT [facility] Sodium 139 136 - 145 mmol/L 04/07/2025 10:19 AM EDT [facility] Potassium 4.2 3.5 - 5.2 mmol/L 04/07/2025 10:19 AM EDT [facility] Comment:Specimen hemolyzed. Result may be falsely elevated. Chloride 105 98 - 107 mmol/L 04/07/2025 10:19 AM EDT [facility] CO2 24.8 22.0 - 29.0 mmol/L 04/07/2025 10:19 AM EDT [facility] Calcium 8.6 8.6 - 10.5 mg/dL 04/07/2025 10:19 AM T [facility] BUN/Creatinine Ratio 17.0 7.0 - 25.0 04/07/2025 10:19 AM EDT [facility] Anion Gap 9.2 5.0 - 15.0 mmol/L 04/07/2025 10:19 AM T [facility] eGFR 113.2 >60.0 mL/min/1.7 3 04/07/2025 10:19 AM T [facility] Blood Venipuncture / Unknown 04/07/2025 9:10 AM EDT 04/07/2025 9:38 AM EDT Narrative [facility] - 04/07/2025 10:19 AM [...] DO LAB BLOOD ORDERABLES Final Resul t [facility]
[address] [place] [address], * MRI Tibia Fibula Right With & [...] [place]rostro 04/07/2025 9:58 AM EDT Workstation ID: [id number] Narrative 04/07/2025 9:58 AM EDT MRI TIBIA [...] [place]enrostro 04/07/2025 9:58 AM EDT Workstation ID: [id number] us Sushil Dean Jr., MD [facility] MRI ORDERABLES Mary Beth l Result * Heparin Anti-Xa (04/07/2025 1:42 AM EDT) Heparin Anti-Xa (UFH) 0.38 0.30 - 0.70 IU/ml 04/07/2025 2:14 AM EDT [facility] Blood Venipuncture / Unknown 04/07/2025 1:42 AM EDT 04/07/2025 1:54 AM EDT Chelsie Navarretesapna [facility] LAB BLOOD ORDERABLES Final R esult Performing Organization Address City/[facility]/ZIP Co de Phone Number [facility]
[address] [place] [address], * Heparin Anti-Xa (04/06/2025 7:16 PM EDT) Pathologist [facility] Heparin Anti-Xa (UFH) 0.33 0.30 - 0.70 IU/ml 04/06/2025 7:50 PM EDT [facility] Blood Venipuncture / Unknown 04/06/2025 7:16 PM EDT 04/06/2025 7:35 PM EDT Cherri Beatty [facility] LAB BLOOD ORDERABLES Final Res ult Performing Organization Address City/[facility] Co de Phone Number [facility]
[address] [place] [address], * Potassium (04/06/2025 7:16 PM EDT) Pathologist [facility] Potassium 4.0 3.5 - 5.2 mmol/L 04/06/2025 7:53 PM EDT [facility] Blood Venipuncture / Unknown 04/06/2025 7:16 PM EDT 04/06/2025 7:35 PM EDT Jason Álvarez DO LAB BLOOD ORDERABLES Final Resul t Performing Organization Address City/[facility]/ZIP Co de Phone Number [facility]
[address] [place] [address], * (ABNORMAL) Heparin Anti-Xa (04/06/2025 12:36 PM EDT) Heparin Anti-Xa (UFH) 0.24(L) 0.30 - 0.70 IU/ml 04/06/2025 1:23 PM EDT [facility] Blood Venipuncture / Unknown 04/06/2025 12:36 PM EDT 04/06/2025 1:07 PM EDT Una LundbergD LAB BLOOD ORDERABLES Final R esult [facility]
[address] [place] [address], * (ABNORMAL) Heparin Anti-Xa (04/06/2025 3:42 AM EDT) [facility] Heparin Anti-Xa (UFH) 0.25(L) 0.30 - 0.70 IU/ml 04/06/2025 5:30 AM EDT [facility] Blood Venipuncture / Unknown 04/06/2025 3:42 AM EDT 04/06/2025 4:59 AM EDT Chelsie Turpin [facility] LAB BLOOD ORDERABLES Final R esult [facility]
[address] [place] [address], * (ABNORMAL) Basic Metabolic Panel (04/06/2025 3:42 AM EDT) [facility] Glucose 94 65 - 99 mg/dL 04/06/2025 5:59 AM EDT [facility] BUN 12.8 6.0 - 20.0 mg/dL 04/06/2025 5:59 AM EDT [facility] Creatinine 0.80 0.76 - 1.27 mg/dL 04/06/2025 5:59 AM EDT [facility] Sodium 138 136 - 145 mmol/L 04/06/2025 5:59 AM EDT [facility] Potassium 3.6 3.5 - 5.2 mmol/L 04/06/2025 5:59 AM EDT [facility] Chloride 103 98 - 107 mmol/L 04/06/2025 5:59 AM EDT [facility] CO2 24.2 22.0 - 29.0 mmol/L 04/06/2025 5:59 AM EDT [facility] Calcium 8.0(L) 8.6 - 10.5 mg/dL 04/06/2025 5:59 AM EDT [facility] BUN/Creatinine Ratio 16.0 7.0 - 25.0 04/06/2025 5:59 AM EDT [facility] Anion Gap 10.8 5.0 - 15.0 mmol/L 04/06/2025 5:59 AM EDT [facility] eGFR 111.9 >60.0 mL/min/1.7 3 04/06/2025 5:59 AM EDT [facility] Blood Venipuncture / Unknown 04/06/2025 3:42 AM EDT 04/06/2025 5:20 AM EDT Narrative [facility] - 04/06/2025 5:59 AM [...] DO LAB BLOOD ORDERABLES Final Resul t [facility]
[address] [place] [address], * (ABNORMAL) CBC Auto Differential (04/06/2025 3:41 AM EDT) WBC 10.86(H) 3.40 - 10.80 10*3/mm3 04/06/2025 5:04 AM EDT [facility] RBC 5.08 4.14 - 5.80 10*6/mm3 04/06/2025 5:04 AM EDT [facility] Hemoglobin 13.9 13.0 - 17.7 g/dL 04/06/2025 5:04 AM EDT [facility] Hematocrit 43.7 37.5 - 51.0 % 04/06/2025 5:04 AM EDT [facility] MCV 86.0 79.0 - 97.0 fL 04/06/2025 5:04 AM EDT [facility] MCH 27.4 26.6 - 33.0 pg 04/06/2025 5:04 AM EDT [facility] MCHC 31.8 31.5 - 35.7 g/dL 04/06/2025 5:04 AM EDT [facility] RDW 12.8 12.3 - 15.4 % 04/06/2025 5:04 AM EDT [facility] RDW-SD 40.0 37.0 - 54.0 fl 04/06/2025 5:04 AM EDT [facility] MPV 11.7 6.0 - 12.0 fL 04/06/2025 5:04 AM EDT [facility] Platelets 115(L) 140 - 450 10*3/mm3 04/06/2025 5:04 AM EDT [facility] Neutrophil % 65.3 42.7 - 76.0 % 04/06/2025 5:04 AM EDT [facility] Lymphocyte % 20.5 19.6 - 45.3 % 04/06/2025 5:04 AM EDT [facility] Monocyte % 11.8 5.0 - 12.0 % 04/06/2025 5:04 AM EDT [facility] Eosinophil % 1.8 0.3 - 6.2 % 04/06/2025 5:04 AM EDT [facility] Basophil % 0.3 0.0 - 1.5 % 04/06/2025 5:04 AM EDT [facility] Immature Grans % 0.3 0.0 - 0.5 % 04/06/2025 5:04 AM EDT [facility] Neutrophils, Absolute 7.09(H) 1.70 - 7.00 10*3/mm3 04/06/2025 5:04 AM EDT [facility] Lymphocytes, Absolute 2.23 0.70 - 3.10 10*3/mm3 04/06/2025 5:04 AM EDT [facility] Monocytes, Absolute 1.28(H) 0.10 - 0.90 10*3/mm3 04/06/2025 5:04 AM EDT [facility] Eosinophils, Absolute 0.20 0.00 - 0.40 10*3/mm3 04/06/2025 5:04 AM EDT [facility] Basophils, Absolute 0.03 0.00 - 0.20 10*3/mm3 04/06/2025 5:04 AM EDT [facility] Immature Grans, Absolute 0.03 0.00 - 0.05 10*3/mm3 04/06/2025 5:04 AM EDT [facility] nRBC 0.0 0.0 - 0.2 /100 WBC 04/06/2025 5:04 AM EDT [facility] Blood Venipuncture / Unknown 04/06/2025 3:41 AM EDT 04/06/2025 4:58 AM EDT us Jason Álvarez DO LAB BLOOD ORDERABLES Final Resul t [facility]
[address] [place] [address], * Heparin Anti-Xa (04/05/2025 8:43 PM EDT) Heparin Anti-Xa (UFH) 0.38 0.30 - 0.70 IU/ml 04/05/2025 9:09 PM EDT [facility] Blood Venipuncture / Unknown 04/05/2025 8:43 PM EDT 04/05/2025 8:55 PM EDT Cherri Beatty [facility] LAB BLOOD ORDERABLES Final Res ult Performing Organization Address [facility] Co de Phone Number [facility]
[address] [place] [address], * CK (04/05/2025 12:15 PM EDT) Creatine Kinase 140 20 - 200 U/L 04/05/2025 1:31 PM EDT [facility] Blood Venipuncture / Unknown 04/05/2025 12:15 PM EDT 04/05/2025 1:03 PM EDT Carlton Mead MD LAB BLOOD ORDERABLES Final R esult Performing Organization Address [facility] Co de Phone Number [facility]
[address] [place] [address], [place] [phone] * (ABNORMAL) Heparin Anti-Xa (04/05/2025 12:15 PM EDT) Heparin Anti-Xa (UFH) 0.17(L) 0.30 - 0.70 IU/ml 04/05/2025 1:21 PM EDT [facility] Blood Venipuncture / Unknown 04/05/2025 12:15 PM EDT 04/05/2025 1:04 PM EDT Una LundbergD LAB BLOOD ORDERABLES Final R esult Performing Organization Address City/[facility]/ZIP Co de Phone Number [facility]
[address] [place] [address], * (ABNORMAL) aPTT (04/05/2025 3:54 AM EDT) [facility] PTT 35.3(L) 60.0 - 90.0 seconds 04/05/2025 4:31 AM EDT [facility] Blood Venipuncture / Unknown 04/05/2025 3:54 AM EDT 04/05/2025 4:15 AM EDT Narrative [facility] - 04/05/2025 4:31 AM EDT PTT = The equivalent PTT values for the therapeutic range of heparin levels at 0.3 to 0.5 U/ml are 60 to 70 seconds. Una Perla [employer] LAB BLOOD ORDERABLES Final R esult Performing Organization Address [facility] Co de Phone Number [facility]
[address] [place] [address], * Heparin Anti-Xa (04/05/2025 3:54 AM EDT) [facility] Heparin Anti-Xa (UFH) 0.30 0.30 - 0.70 IU/ml 04/05/2025 4:32 AM EDT [facility] Blood Venipuncture / Unknown 04/05/2025 3:54 AM EDT 04/05/2025 4:15 AM EDT [employer] LAB BLOOD ORDERABLES Final R esult Performing Organization Address City/[facility] Co de Phone Number [facility]
[address] [place] [address], * (ABNORMAL) CBC Auto Differential (04/05/2025 3:54 AM EDT) [facility] WBC 11.18(H) 3.40 - 10.80 10*3/mm3 04/05/2025 4:20 AM EDT [facility] RBC 5.00 4.14 - 5.80 10*6/mm3 04/05/2025 4:20 AM EDT [facility] Hemoglobin 13.9 13.0 - 17.7 g/dL 04/05/2025 4:20 AM EDT [facility] Hematocrit 42.4 37.5 - 51.0 % 04/05/2025 4:20 AM EDT [facility] MCV 84.8 79.0 - 97.0 fL 04/05/2025 4:20 AM EDT [facility] MCH 27.8 26.6 - 33.0 pg 04/05/2025 4:20 AM [facility] MCHC 32.8 31.5 - 35.7 g/dL 04/05/2025 4:20 AM [facility] RDW 12.9 12.3 - 15.4 % 04/05/2025 4:20 AM [facility] RDW-SD 39.7 37.0 - 54.0 fl 04/05/2025 4:20 AM [facility] MPV 10.2 6.0 - 12.0 fL 04/05/2025 4:20 AM [facility] Platelets 160 140 - 450 10*3/mm3 04/05/2025 4:20 AM [facility] Neutrophil % 73.5 42.7 - 76.0 % 04/05/2025 4:20 AM [facility] Lymphocyte % 14.0(L) 19.6 - 45.3 % 04/05/2025 4:20 AM EDT [facility] Monocyte % 11.0 5.0 - 12.0 % 04/05/2025 4:20 AM [facility] Eosinophil % 0.8 0.3 - 6.2 % 04/05/2025 4:20 AM [facility] Basophil % 0.3 0.0 - 1.5 % 04/05/2025 4:20 AM EDT [facility] Immature Grans % 0.4 0.0 - 0.5 % 04/05/2025 4:20 AM EDT [facility] Neutrophils, Absolute 8.23(H) 1.70 - 7.00 10*3/mm3 04/05/2025 4:20 AM EDT [facility] Lymphocytes, Absolute 1.56 0.70 - 3.10 10*3/mm3 04/05/2025 4:20 AM EDT [facility] Monocytes, Absolute 1.23(H) 0.10 - 0.90 10*3/mm3 04/05/2025 4:20 AM EDT [facility] Eosinophils, Absolute 0.09 0.00 - 0.40 10*3/mm3 04/05/2025 4:20 AM EDT [facility] Basophils, Absolute 0.03 0.00 - 0.20 10*3/mm3 04/05/2025 4:20 AM EDT [facility] Immature Grans, Absolute 0.04 0.00 - 0.05 10*3/mm3 04/05/2025 4:20 AM EDT [facility] nRBC 0.0 0.0 - 0.2 /100 WBC 04/05/2025 4:20 AM EDT [facility] Blood Venipuncture / Unknown 04/05/2025 3:54 AM EDT 04/05/2025 4:16 AM EDT Una Perla PharmD LAB BLOOD ORDERABLES Final R esult [facility]
[address] [place] [address], * (ABNORMAL) Basic Metabolic Panel (04/05/2025 3:54 AM EDT) [facility] Signature Glucose 152(H) 65 - 99 mg/dL 04/05/2025 4:40 AM EDT [facility] BUN 17.3 6.0 - 20.0 mg/dL 04/05/2025 4:40 AM T [facility] Creatinine 0.92 0.76 - 1.27 mg/dL 04/05/2025 4:40 AM EDT [facility] Sodium 136 136 - 145 mmol/L 04/05/2025 4:40 AM EDT [facility] Potassium 3.9 3.5 - 5.2 mmol/L 04/05/2025 4:40 AM EDT [facility] Chloride 103 98 - 107 mmol/L 04/05/2025 4:40 AM EDT [facility] CO2 24.0 22.0 - 29.0 mmol/L 04/05/2025 4:40 AM T [facility] Calcium 7.8(L) 8.6 - 10.5 mg/dL 04/05/2025 4:40 AM [facility] BUN/Creatinine Ratio 18.8 7.0 - 25.0 04/05/2025 4:40 AM T [facility] Anion Gap 9.0 5.0 - 15.0 mmol/L 04/05/2025 4:40 AM [facility] eGFR 105.2 >60.0 mL/min/1.7 3 04/05/2025 4:40 AM [facility] Blood Venipuncture / Unknown 04/05/2025 3:54 AM EDT 04/05/2025 4:15 AM EDT [facility] - 04/05/2025 4:40 AM EDT GFR [...] ORDERABLES Final Re sult Performing Organization Address [facility] Co de Phone Number [facility]
[address] [place] [address], * (ABNORMAL) aPTT (04/05/2025 12:18 AM EDT) PTT 33.6(L) 60.0 - 90.0 seconds 04/05/2025 12:53 AM EDT [facility] Blood Venipuncture / Unknown 04/05/2025 12:18 AM EDT 04/05/2025 12:37 AM EDT Narrative [facility] - 04/05/2025 12:53 AM EDT PTT = The equivalent PTT values for the therapeutic range of heparin levels at 0.3 to 0.5 U/ml are 60 to 70 seconds. Una Perla PharmD LAB BLOOD ORDERABLES Final R esult Performing Organization Address [facility] Co de Phone Number [facility]
[address] [place] [address], [place] [phone] * (ABNORMAL) Protime-INR (04/05/2025 12:18 AM EDT) Protime 15.9(H) 12.2 - 15.3 Seconds 04/05/2025 12:53 AM EDT [facility] INR 1.19(H) 0.89 - 1.12 04/05/2025 12:53 AM EDT [facility] Blood Venipuncture / Unknown 04/05/2025 12:18 AM EDT 04/05/2025 12:37 AM EDT Una Perla PharmD LAB BLOOD ORDERABLES Final R esult Performing Organization Address City/[facility] Co de Phone Number [facility]
[address] [place] [address], [place] [phone] * Heparin Anti-Xa (04/05/2025 12:18 AM EDT) Heparin Anti-Xa (UFH) 0.39 0.30 - 0.70 IU/ml 04/05/2025 12:54 AM EDT [facility] Blood Venipuncture / Unknown 04/05/2025 12:18 AM EDT 04/05/2025 12:37 AM EDT Una Perla PharmD LAB BLOOD ORDERABLES Final R esult [facility]
[address] [place] [address], * MRI Tibia Fibula Right With & [...] MD 04/04/2025 11:00 PM EDT Workstation ID: [id number] Narrative 04/04/2025 11:00 PM EDT MRI TIBIA [...] MD 04/04/2025 11:00 PM EDT Workstation ID: [id number] us Leonora Shepherd MD IMG MRI ORDERABLES Final Resu lt * POC Creatinine (04/04/2025 2:49 PM EDT) [facility] Creatinine 1.10 0.60 - 1.30 mg/dL 04/07/2025 7:14 PM EDT [facility] Comment:Serial Number: [id number] 7Operator: [id number] Venous Blood 04/04/2025 2:49 PM EDT 04/07/2025 7:14 PM EDT Jason Álvarez DO POINT OF CARE TEST ORDERABLES Fi nal Result [facility]
[address] [place] [address], * (ABNORMAL) CBC Auto Differential (04/04/2025 2:47 PM EDT) [facility] WBC 12.72(H) 3.40 - 10.80 10*3/mm3 04/04/2025 2:56 PM EDT [facility] RBC 5.64 4.14 - 5.80 10*6/mm3 04/04/2025 2:56 PM EDT [facility] Hemoglobin 15.3 13.0 - 17.7 g/dL 04/04/2025 2:56 PM EDT [facility] Hematocrit 47.9 37.5 - 51.0 % 04/04/2025 2:56 PM EDT [facility] MCV 84.9 79.0 - 97.0 fL 04/04/2025 2:56 PM EDT [facility] MCH 27.1 26.6 - 33.0 pg 04/04/2025 2:56 PM EDT [facility] MCHC 31.9 31.5 - 35.7 g/dL 04/04/2025 2:56 PM EDT [facility] RDW 13.1 12.3 - 15.4 % 04/04/2025 2:56 PM [facility] RDW-SD 40.3 37.0 - 54.0 fl 04/04/2025 2:56 PM EDT [facility] MPV 9.4 6.0 - 12.0 fL 04/04/2025 2:56 PM EDT [facility] Platelets 232 140 - 450 10*3/mm3 04/04/2025 2:56 PM EDT [facility] Neutrophil % 74.9 42.7 - 76.0 % 04/04/2025 2:56 PM EDT [facility] Lymphocyte % 13.1(L) 19.6 - 45.3 % 04/04/2025 2:56 PM [facility] Monocyte % 11.2 5.0 - 12.0 % 04/04/2025 2:56 PM [facility] Eosinophil % 0.4 0.3 - 6.2 % 04/04/2025 2:56 PM EDT [facility] Basophil % 0.2 0.0 - 1.5 % 04/04/2025 2:56 PM [facility] Immature Grans % 0.2 0.0 - 0.5 % 04/04/2025 2:56 PM [facility] Neutrophils, Absolute 9.52(H) 1.70 - 7.00 10*3/mm3 04/04/2025 2:56 PM [facility] Lymphocytes, Absolute 1.66 0.70 - 3.10 10*3/mm3 04/04/2025 2:56 PM EDT [facility] Monocytes, Absolute 1.43(H) 0.10 - 0.90 10*3/mm3 04/04/2025 2:56 PM EDT [facility] Eosinophils, Absolute 0.05 0.00 - 0.40 10*3/mm3 04/04/2025 2:56 PM [facility] Basophils, Absolute 0.03 0.00 - 0.20 10*3/mm3 04/04/2025 2:56 PM EDT [facility] Immature Grans, Absolute 0.03 0.00 - 0.05 10*3/mm3 04/04/2025 2:56 PM EDT [facility] nRBC 0.0 0.0 - 0.2 /100 WBC 04/04/2025 2:56 PM EDT [facility] Blood Venipuncture / Unknown 04/04/2025 2:47 PM EDT 04/04/2025 2:52 PM EDT Mario Ortiz [employer] LAB BLOOD ORDERABLES Fin al Result Performing Organization Address City/[facility]/ZIP Co de Phone Number [facility]
[address] [place] [address], * (ABNORMAL) C-reactive Protein (04/04/2025 2:47 PM EDT) C-Reactive Protein 8.57(H) 0.00 - 0.50 mg/dL 04/04/2025 3:26 PM EDT [facility] Blood Venipuncture / Unknown 04/04/2025 2:47 PM EDT 04/04/2025 2:52 PM EDT Mario Ortiz [employer] LAB BLOOD ORDERABLES Fin al Result Performing Organization Address [facility] de Phone Number [facility]
[address] [place] [address], * (ABNORMAL) Sedimentation Rate (04/04/2025 2:47 PM EDT) Sed Rate 51(H) 0 - 15 mm/hr 04/04/2025 3:06 PM EDT [facility] Blood Venipuncture / Unknown 04/04/2025 2:47 PM EDT 04/04/2025 2:52 PM EDT Mario Ortiz [facility] hospitalGr[facility] LAB BLOOD ORDERABLES Fin al Result Performing Organization Address City/[facility]/ZIP Co de Phone Number [facility]
[address] [place] [address], * Comprehensive Metabolic Panel (04/04/2025 2:47 PM EDT) [facility] Glucose 90 65 - 99 mg/dL 04/04/2025 3:26 PM EDT [facility] BUN 18.3 6.0 - 20.0 mg/dL 04/04/2025 3:26 PM EDT [facility] Creatinine 0.94 0.76 - 1.27 mg/dL 04/04/2025 3:26 PM EDT [facility] Sodium 136 136 - 145 mmol/L 04/04/2025 3:26 PM EDT [facility] Potassium 3.8 3.5 - 5.2 mmol/L 04/04/2025 3:26 PM EDT [facility] Chloride 100 98 - 107 mmol/L 04/04/2025 3:26 PM EDT [facility] CO2 25.3 22.0 - 29.0 mmol/L 04/04/2025 3:26 PM EDT [facility] Calcium 8.6 8.6 - 10.5 mg/dL 04/04/2025 3:26 PM EDT [facility] Total Protein 7.3 6.0 - 8.5 g/dL 04/04/2025 3:26 PM EDT [facility] Albumin 4.1 3.5 - 5.2 g/dL 04/04/2025 3:26 PM EDT [facility] ALT (SGPT) 26 1 - 41 U/L 04/04/2025 3:26 PM EDT [facility] AST (SGOT) 25 1 - 40 U/L 04/04/2025 3:26 PM EDT [facility] Alkaline Phosphatase 106 39 - 117 U/L 04/04/2025 3:26 PM EDT [facility] Total Bilirubin 1.0 0.0 - 1.2 mg/dL 04/04/2025 3:26 PM EDT [facility] Globulin 3.2 gm/dL 04/04/2025 3:26 PM EDT [facility] Comment:Calculated Result A/G Ratio 1.3 g/dL 04/04/2025 3:26 PM EDT [facility] BUN/Creatinine Ratio 19.5 7.0 - 25.0 04/04/2025 3:26 PM EDT [facility] Anion Gap 10.7 5.0 - 15.0 mmol/L 04/04/2025 3:26 PM EDT [facility] eGFR 102.5 >60.0 mL/min/1.7 3 04/04/2025 3:26 PM EDT [facility] Blood Venipuncture / Unknown 04/04/2025 2:47 PM EDT 04/04/2025 2:52 PM EDT Narrative [facility] - 04/04/2025 3:26 PM [...] DO LAB BLOOD ORDERABLES Fin al Result [facility]
[address] [place] [address], documented in this encounter Visit Diagnoses Diagnosis [...] 04/05/2025 3:33 PM EDT 2,000 Units heparin 19547 units/250 mL (100 units/mL) in 0.45 % [...] BPA Driven Protocol Open Order & [facility] Electrolyte Replacement Protocol Algorithm [...] BPA Driven Protocol Open Order & [facility] Electrolyte Replacement Protocol Algorithm [...] disposal. 0831 (Given - Provider: Amber Salazar, RECOOPERER)194 (Given - Provider: Anahy Marcelino, RECOOPERER)2129 (Canceled Entry - Provider: Anahy Marcelino RRT [...] for alternative. 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
--- OUTSIDE RECORDS SUMMARY | 2025-04-07 17:00 | XMS_ITS | Encounter Summary ---
[facility] Address [address] [place] [address] Care Team Providers Care School Aide Name Role Phone Provider, No Known Primary Care Provider Unavail able Reason for Visit * Reason Comments Leg Swelling * Auth/Cert Specialty Diagnoses / Procedures Referred By Contac t Referred To Contact Diagnoses Right BKA infection Referral ID Status Reason Start Date Expiration Date Visits Re quested Visits Authorized [id number] 1 1 Encounter Details Date Type Department Care Team (Late st Contact Info) Description 04/07/2025 6:00 PM EDT - 04/07/2025 6:52 PM EDT Surgery [facility] [address] [place] [address] Sushil Dean Jr., MD [address] [place] [address] [address] [place] [id number] LEG DEBRIDEMENT, IRRIGATION Social History Tobacco Use Types Packs/Day Years Used Date Smoking Tobacco: Never Smokeless Tobacco: Never Tobacco Cessation:Counseling Given: Not Answered Alcohol Use Standard Drinks/Week Comments Not Currently 0 (1 standard drink = 0.6 oz pur e alcohol) [facility] Utilities Answer Date Recorded In the past 12 months has [employer] electric, gas, oil, or water company threatened [...] or training? Not on file Preferred Language Czech 04/07/2025 Sex and Gender Information Value Date Recorded Sex Assigned at Not on file Legal Sex Male 7:30 PM EDT Gender Identity Not on file Sexual Orientation Not on file documented as of this encounter Last Filed Vital Signs Vital Sign Reading Time Taken Comments Blood Pressure 122/75 04/07/2025 4:56 PM EDT Pulse 79 04/07/2025 4:56 PM EDT Temperature 36.7 C (98.1 F) 04/07/2025 4:56 PM EDT Respiratory Rate 18 04/07/2025 4:56 PM EDT Oxygen Saturation 95% 04/07/2025 4:56 PM EDT Inhaled Oxygen Concentration - - Weight 134 kg (295 lb) 04/04/2025 2:25 PM EDT Height 180.3 cm (5' 11 ) 04/04/2025 2:25 PM EDT Body Mass Index 41.14 04/04/2025 2:25 PM EDT documented in this encounter Functional Status * Calculated C-SSRS Risk Score (Lifetime/Recent) Answer Date of Assessment Author No Risk Indicated 04/04/2025 2:25 PM EDT Cherri Grimm RN * [place] Suicide Severity Rating Scale (Screener/Recent Self-Report) Question Answer Date of Assessment Author 1. Wish to be (Past 1 Month) No 025 2:25 PM EDT Cherri Garcia RN 2. Non-Specific Active Suici mickey Thoughts (Past 1 Month) No 04/04/2025 2:25 PM EDT Weslye Garcia RN 6. Suicidal Behavior (Lifetime) No 2:25 PM EDT Cherri Garcia RN documented as of this encounter Discharge Summaries * Rosario Hill, DAVID - 04/11/2025 11:11 AM EDT Images from [...] Date/Time Wound Culture - Swab, Leg, Right [[id number]] (Abnormal) (Susceptibility) Collected: 04/07/252106 Lab Status: Final [...] Units Date/Time FL C Arm During Surgery [[id number]] Resulted: 04/07/252137 Updated: 04/07/252137 Narrative: This procedure was auto-finalized with no dictation required. MRI Tibia Fibula Right With & Without Contrast [[id number]] Collected: 04/07/25 0938 Updated: 04/07/25 1001 Narrative: [...] Buenrostro 04/07/2025 9:58 AM EDT Workstation ID: [id number] MRI Tibia Fibula Right With & Without Contrast [[id number]] Collected: 04/04/252256 Updated: 04/04/252302 Narrative: MRI TIBIA [...] represent a small area of phlegmonous change (hotimo74 image 10) measuring approximately 1.6 cm which [...] MD 04/04/2025 11:00 PM EDT Workstation ID: [id number] Pending Labs Order Current Status Fungus Culture [...] FLOMAX 1 capsule, Nightly Stop These Medications Culturee [facility] capsule doxycycline 100 MG tablet Commonly [...] Male) Date of 1980 Social Security Number [id number] [place] [address] [place] [address] Tenriism Unknown Marital Status Unknown Admission Date 04/04/2025 Admission Type Emergency Admitting Provider Jadyn Rihcardson DO Attending Provider Jadyn Richardson DO Department, Room/Bed [facility] 5G, S565/1 Discharge Date Discharge Disposition Discharge Destination Attending Provider: Jadyn Richardson DO Allergies: Ceftin [Cefuroxime], Keflex [Cephalexin], Latex Isolation: None Infection: MRSA (05/11/23) Code Status: CPR Ht: 180.3 cm (71 ) Wt: 134 kg (295 lb) Admission Cmt: None 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 Insurance as of 04/04/2025 Primary Coverage Payor Plan Insurance Group Employer/Plan Group [place] [id number] Payor Plan Address Payor Plan Phone Number Payor Plan Fax Number Effective Dates [employer] [address] [address] 08/10/2023 - None Entered [facility] [address] Subscriber Name Subscriber Date Member ID WON DENNIS 1980 [id number] Emergency Contacts Assorter (Rel.) Home Phone Work Phone Mobile Phone Avril Dennis (Spouse) -- -- [phone] Robert Hackett (Relative) -- -- [phone] [facility] 5[facility] [address] [facility] [address] Patient: ROOM: [facility] Won Dennis [address] [place] [address] : 1980 SSN: [id number] Sex: M PCP: Provider, No Known Emergency Contact Information Name Relation Home Work Mobile Avril Dennis Spouse [phone] Other Contacts Name Relation Home Work Mobile Robert Hackett Relative [phone] INSURANCE PA[employer]OR [employer]AN [employer] # SUBSCRIBER ID Primary: Secondary: MEDICARE [place] [id number] Admitting Diagnosis: 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 Outpatient intravenous antibiotic therapy: Daptomycin 800 mg IV daily to be supplied by [facility] 2. Home health to perform [...] INFECTIOUS DISEASE Progress Note Won Dennis 1980 [id number] Date of Consult: 04/10/2025 Admission Date: 04/04/2025 [...] Jr., MD, Last Rate: 100 mL/hr at 04/09/25 09, 800 mg at 04/09/25906 ethyl alcohol 62 % 2 each, 2 Swab, Nasal, Once, Sushil Dean Jr., MD ferrous sulfate tablet 325 mg, 325 mg, Oral, BID, Sushil Dean Jr., MD, 325 mg at 04/09/252026 furosemide (LASIX) tablet 20 mg, 20 mg, Oral, Daily, Sushil Dean Jr., MD, 20 mg at 04/09/25906 heparin 50878 units/250 mL (100 units/mL) in 0.45 % NaCl infusion, 18 Units/kg/hr, Intravenous, Titrated, Una Peral, PharmD, Last Rate: 24.1 mL/hr at 04/10/25 0313, 18 Units/kg/hr at 04/10/25 031 hydroCHLOROthiazide tablet [...] Sushil Dean Jr., MD, 250 mg at 10/01/25 2027 sertraline (ZOLOFT) tablet 100 mg, 100 mg, [...] Sodium Chloride 500 mL Ordering Provider: Sushil Dena Jr., MD 15 mg/kg ?? 134 kg [...] vancomycin 2750 mg/500 mL 0.9% NS IVPB ([facility]) Ordering Provider: Mario Crowley, DO 20 [...] Units Date/Time FL C Arm During Surgery [[id number]] Resulted: 04/07/252137 Updated: 04/07/252137 Narrative: This procedure was auto-finalized with no dictation required. MRI Tibia Fibula Right With & Without Contrast [[id number]] Collected: 04/07/2538 Updated: 04/07/25 1001 Narrative: MRI [...] Buenrostro 04/07/2025 9:58 AM EDT Workstation ID: [id number] Impression: Recurrent Right BKA stump abscess/cellulitis- this [...] discussed his disposition with the pharmacist at [facility] today. I will sign off Outpatient orders: 1. Outpatient intravenous antibiotic therapy: Daptomycin 800 mg IV daily to be supplied by [facility] 2. Home health to perform weekly [...] patient. Carlton Mead MD 04/10/2025 07:38 EDT Rosario Hill APRN Nurse Practitioner Hospitalist Progress Notes Signed Date of Service: 04/10/251323 Creation Time: 04/10/251323 Signed [facility] Medicine Services PROGRESS NOTE Patient [...] 04/08/25 0841 04/07/25 0910 04/06/25 1916 04/06/25 034 SODIUM 137 135* 136 139 -- 138 [...] Date/Time Wound Culture - Swab, Leg, Right [[id number]] (Abnormal) (Susceptibility) Collected: 04/07/252106 Lab Status: Final [...] With: Patient Rosario Hill APRN 04/10/25 * Susan Cavazos, PT - 04/06/2025 [...] Provider Type Susan Pugh, PT Physical Therapist Mobility Row Name 04/06/25 1143 Bed Mobility Comment, (Bed Mobility) Up in chair at initial and end of evaluation, but states no issues with bedmobility. -LM Row Name 04/06/25 1143 Sit-Stand Transfer Sit-Stand Jasper (Transfers) modified independence - Comment, (Sit-Stand Transfer) Pt stood from recliner. Not holding onto walker, pt able to pull his pants up while balancing on his one leg. -LM Row Name 04/06/25 1143 Gait/Stairs (Locomotion) [place]asper Level (Gait) modified independence - Distance in Feet (Gait) 100 -LM Comment, [...] = Cosigned By Initials Name Provider Type Gilda Pughi, BRIANA Physical Therapist Obj/Interventions Row Name 04/06/25 1145 Range of Motion Comprehensive General Range of Motion bilateral lower extremity ROM WFL -LM [facility] Name 04/06/25 1145 Strength Comprehensive (MMT) General Manual Muscle Testing (MMT) Assessment no strength deficits identified BLEs -LM [facility] Name 04/06/25 1145 Balance Balance Assessment sitting [...] By Initials Name Provider Type Susan Cavazos, BRIANA Physical Therapist Goals/Plan No documentation. Clinical Impression [facility] 04/06/25 1146 Pain Pretreatment Pain Rating 0/10 - no pain -LM Posttreatment Pain Rating 0/10 - no pain -LM [facility] 04/06/25 1146 Plan of Care Review Plan of Care Reviewed With patient -LM Outcome Evaluation PT evaluation completed. Pt demonstrated independence with all mobility including ambulating 100 feet using rw - no unsteadiness noted. Pt reports he feels at baseline and doesn't think he needs skilled PT while here. Recommend home at d/c. PT signing off. -LM [facility] Name 04/06/25 1146 Therapy Assessment/Plan (PT) Criteria for Skilled Interventions Met (PT) no;no problems identified which require skilled intervention -LM Therapy Frequency (PT) evaluation only -LM Predicted Duration of Therapy Intervention (PT) Eval Only -LM [facility] Name 04/06/25 1146 Vital Signs Pretreatment Heart Rate (beats/min) 86 -LM Posttreatment Heart Rate (beats/min) 96 -LM Pre SpO2 (%) 95 -LM O2 Delivery Pre Treatment room air -LM Post SpO2 (%) 96 -LM O2 Delivery Post Treatment room air -LM Pre Patient Position Sitting -LM Post Patient Position Sitting -LM [facility] Name 04/06/25 1146 Positioning and Restraints Pre-Treatment [...] Options AM-PAC 6 Clicks Basic Mobility (PT) - User Cabrera (r) = Recorded By, (t) = Taken By, (c) = Cosigned By Initials Name Provider Type Susan Pugh, BRIANA Physical Therapist Zandra Roy RN Registered Nurse Physical Therapy Education Title: PT OT AGRICULTURAL RESEARCHER Therapies (Done) Topic: Physical Therapy (Done) Point: Mobility training (Done) Learning Progress Summary Patient Acceptance, E, VU,DU by at 04/06/2025 1147 Point: Precautions (Done) Learning Progress Summary Patient Acceptance, E, VU,DU by at 04/06/2025 1147 User Cabrera Initials Effective Dates Name Provider Type [facility] 01/24/25 - Susan Cavazos, PT Physical Therapist [...] By Initials Name Provider Type LM Susan Cavazos, PT Physical Therapist Therapy Charges for Today Code Description Service Date Service Provider Modifiers Qty [id number] PT EVAL LOW COMPLEXITY 3 04/06/2025 Susan [...] note were not included. Won Dennis LOS: 7 days Patient Care Team: Provider, [...] mg Daily 04/05/2025 -- Route: Oral heparin 86693 units/250 mL (100 units/mL) in 0.45 % [...] Dean MD April 21 vs April 22 [facility] [address], [address] [facility], [address] Please schedule at [phone] VONDA Garcia 04/11/25 08:32 EDT Cosigned by [...] exposed skin Results Reviewed: LAB RESULTS: Lab 04/10/2534504/09/2541704/08/2584004/07/2590904/06/2534004/05/25 0354 04/05/25 0018 04/04/25 1447 WBC 9.60 [...] -- -- -- 35.3* 33.6* -- Lab 04/10/2534504/09/2541704/08/2584004/07/2590904/06/25 1916 04/06/25341 SODIUM 137 135* 136 139 -- 138 [...] Date/Time Wound Culture - Swab, Leg, Right [[id number]] (Abnormal) (Susceptibility) Collected: 04/07/252106 Lab Status: Final [...] 98.5 - 100.9 98.8 98.8 (37.1) 04/06 858 Heart Rate 60 - 100 87 87 [...] mg Daily 04/05/2025 -- Route: Oral heparin 31321 units/250 mL (100 units/mL) in 0.45 % [...] Dean MD April 21 vs April 22 [facility] [address] [facility], [address] [facility], [address] Please schedule at [phone] VONDA Garcia 04/10/25 09:01 EDT Cosigned by Sushil Dean Jr., MD at 04/19/2025 10:33 AM EDT Associated attestation - Sushil Dean Jr., MD - 04/19/2025 10:33 AM EDT I have reviewed this documentation and agree. * Carlton Mead MD - 04/10/2025 7:38 AM EDT Images from the original note were not included. INFECTIOUS DISEASE Progress Note Won Dennis 1980 [id number] Date of Consult: 04/10/2025 Admission Date: 04/04/2025 [...] IRRIGATION; Surgeon: Sushil Dean Jr., MD; Location: [facility]; Service: Orthopedics; Laterality: Right; PLACEMENT OF WOUND VAC Right 04/07/2025 Procedure: WOUND VACUUM ASSISTED CLOSURE; Surgeon: Sushil Dean Jr., MD; Location: [facility]; Service: Orthopedics; Laterality: Right; WOUND CLOSURE Right 04/08/2025 Procedure: WOUND CLOSURE DELAYED; Surgeon: Sushil Dean Jr., MD; Location: [facility]; Service:Orthopedics; Laterality: Right; WOUND DEBRIDEMENT Right 04/08/2025 Procedure: LEG DEBRIDEMENT AND IRRIGATION; Surgeon: Sushil Dean Jr., MD; Location: [facility];Service: Orthopedics; Laterality: Right; History reviewed. [...] Jr., MD, 20 mg at 04/09/25906 heparin 05754 units/250 mL (100 units/mL) in 0.45 % NaCl infusion, 18 Units/kg/hr, Intravenous, Titrated, Una Perla, PharmD, Last Rate: 24.1 mL/hr at 04/10/25312, 18 Units/kg/hr at 04/10/25312 hydroCHLOROthiazide tablet 12.5 mg, 12.5 mg, Oral, Daily, Sushil Dean Jr., MD, 12.5 mg at 04/09/25905 HYDROmorphone (DILAUDID) injection 0.5 mg, 0.5 mg, [...] % flush 20 mL, 20 mL, Intravenous, PRAmber, Carlton Mead MD sodium chloride 0.9 % [...] Shepherd MD Not Applicable Continuous PRN 04/04/25200404/05/25 12004/04/25 194 vancomycin 2750 mg/500 mL 0.9% NS IVPB ([facility]) Ordering Provider: Mario Crowley, 20 mg/kg ?? 134 kg over 165 [...] Units Date/Time FL C Arm During Surgery [[id number]] Resulted: 04/07/252137 Updated: 04/07/252137 Narrative: This procedure was auto-finalized with no dictation required. MRI Tibia Fibula Right With & Without Contrast [[id number]] Collected: 04/07/25937 Updated: 04/07/25 100 Narrative: MRI [...] Buenrostro 04/07/2025 9:58 AM EDT Workstation ID: [id number] Impression: Recurrent Right BKA stump abscess/cellulitis- this [...] discussed his disposition with the pharmacist at [facility] today. I will sign off Outpatient orders: 1. Outpatient intravenous antibiotic therapy: Daptomycin 800 mg IV daily to be supplied by [facility] 2. Home health to perform weekly [...] Mead MD 04/10/2025 07:38 EDT * Larisa Hamilton [facility] - 04/10/2025 7:17 AM EDT Pharmacy to [...] Date/Time Wound Culture - Swab, Leg, Right [[id number]] (Abnormal) Collected: 04/07/252106 Lab Status: Preliminary result [...] Jason Álvarez DO 04/09/25 * Larisa Hamilton [facility] - 04/09/2025 11:36 AM EDT Pharmacy to [...] 18 0600 04/10 ALDEN RN; pump verified Larisa Hamilton RPH [...] -- Admin Instructions: Open Order & Select [facility] Electrolyte Replacement Protocol Algorithm to View [...] mg Daily 04/05/2025 -- Route: Oral heparin 49532 units/250 mL (100 units/mL) in 0.45 % [...] -- Admin Instructions: Open Order & Select [facility] Electrolyte Replacement Protocol Algorithm to View [...] in 2 weeks for incision check, radiographs [facility] [address] [facility], [address] [facility], [address] Please schedule at [phone] VONDA Garcia 04/09/25 09:18 EDT Cosigned by Sushil Dean Jr., MD at 04/19/2025 10:33 AM EDT Associated attestation - Sushil Dean Jr., MD - 04/19/2025 10:33 AM EDT I have reviewed this documentation and agree. * Carlton Mead MD - 04/09/2025 8:25 AM EDT Images from the original note were not included. INFECTIOUS DISEASE Progress Note Won Dennis 1980 [id number] Date of Consult: 04/09/2025 Admission Date: 04/04/2025 [...] Sushil Dean Jr., MD; Location: [facility]; Service: Orthopedics; Laterality: Right; PLACEMENT OF WOUND VAC Right 04/07/2025 Procedure: WOUND VACUUM ASSISTED CLOSURE; Surgeon: Sushil Dean Jr., MD; Location: [facility] OR; Service: Orthopedics; Laterality: Right; History [...] MD, 20 mg at 04/08/25 0800 heparin 13249 units/250 mL (100 units/mL) in 0.45 % NaCl infusion, 18 Units/kg/hr, Intravenous, Titrated, Una Perla, PharmD, Last Rate: 24.1 mL/hr at 04/09/25613, 18 Units/kg/hr at 04/09/25613 hydroCHLOROthiazide tablet 12.5 mg, 12.5 mg, Oral, [...] 134 kg over 165 Minutes Intravenous Once 04/04/25 1959 09230604/04/251942 cefTRIAXone (ROCEPHIN) 2,000 mg in sodium chloride [...] Units Date/Time FL C Arm During Surgery [[id number]] Resulted: 04/07/252137 Updated: 04/07/252137 Narrative: This procedure was auto-finalized with no dictation required. MRI Tibia Fibula Right With & Without Contrast [[id number]] Collected: 04/07/25 0938 Updated: 04/07/25 1001 Narrative: [...] Chitra 04/07/2025 9:58 AM EDT Workstation ID: [id number] Impression: Recurrent Right BKA stump abscess/cellulitis- this [...] mg IV daily to be supplied by [facility] 2. Home health to perform [...] Carlton Mead MD 04/09/2025 08:25 EDT * PreetiJason, DO - 04/08/2025 1:47 PM EDT Images [...] RESULTS: Lab 04/08/25 0841 04/07/25 0910 04/06/25 03404/05/25 0354 04/05/25 0018 04/04/25 1447 WBC 10.07 [...] Buenrostro 04/07/2025 9:58 AM EDT Workstation ID: [id number] I have personally reviewed the therapy plans: [...] Level Of Support Discussed With: Patient Jason Álvarez, DO 04/08/25 * Hamilton, Lraisa, [facility] - 04/08/2025 11:48 AM EDT Pharmacy to [...] note were not included. Won Dennis LOS: 4 days Patient Care Team: Provider, [...] 98.5 - 100.9 98.8 98.8 (37.1) 04/06 858 Heart Rate 60 - 100 87 87 04/06 08 Resp 16 - 18 18 18 04/06 858 BP 110/62 - 122/75 120/69 120/69 04/06 [...] -- Admin Instructions: Open Order & Select [facility] Electrolyte Replacement Protocol Algorithm to View [...] mg Daily 04/05/2025 -- Route: Oral heparin 56009 units/250 mL (100 units/mL) in 0.45 % [...] INFECTIOUS DISEASE Progress Note Won Dennis 1980 [id number] Date of Consult: 04/08/2025 Admission Date: 04/04/2025 [...] IRRIGATION; Surgeon: Sushil Dean Jr., MD; Location: [facility] OR; Service: Orthopedics; Laterality: Right; PLACEMENT OF WOUND VAC Right 04/07/2025 Procedure: WOUND VACUUM ASSISTED CLOSURE; Surgeon: Sushil Dean Jr., MD; Location: [facility] OR; Service: Orthopedics; Laterality: Right; History [...] Oral, Q6H PRN, 500 mg at 04/06/25 6634 OR acetaminophen (TYLENOL) 160 MG/5ML oral solution [...] cream 1 Application, 1 Application, Topical, Q12H, Sushli Dean Jr., MD, 1 Application at 04/07/25 [...] Jr., MD, 20 mg at 04/07/25950 heparin 10692 units/250 mL (100 units/mL) in 0.45 % NaCl infusion, 18 Units/kg/hr, Intravenous, Titrated, Sushil Dean Jr., MD, Last Rate: 24.1 mL/hr at 04/07/25 2334, 18 Units/kg/hr at 4 hydroCHLOROthiazide tablet 12.5 mg, 12.5 mg, Oral, Daily, Sushil Dean Jr., MD, 12.5 mg at 04/07/25950 HYDROmorphone (DILAUDID) injection 0.5 mg, 0.5 mg, Intravenous, Q2H PRN, Sushil Dean Jr., MD,0.5 mg at 04/08/25 06 HYDROmorphone (DILAUDID) injection 1 mg, 1 mg, Intravenous, Q15 Min PRN, 1 mg at 04/07/252211 AND naloxone (NARCAN) injection 0.4 mg, 0.4 [...] tablet 100 mg, 100 mg, Oral, Nightly, uSshil Dean Jr., MD, 100 mg at 04/06/252101 [COMPLETED] Insert Peripheral IV, , , Once AND sodium chloride 0.9 % flush 10 mL, 10 mL, Intravenous, PRN, Sushil Dean Jr., MD sodium chloride 0.9 % flush 10 mL, 10 mL, Intravenous, Q12H, Sushil Dean Jr., MD, 10 mL at 04/07/25951 sodium chloride 0.9 % flush 10 mL, [...] Sushil Dean Jr., MD, 40 mg at 04/07/25950 Antibiotics: Anti-Infectives (From admission, onward) Ordered Dose/Rate [...] vancomycin 2750 mg/500 mL 0.9% NS IVPB ([facility]) Ordering Provider: Mario Crowley, DO 20 [...] Units Date/Time FL C Arm During Surgery [[id number]] Resulted: 04/07/252137 Updated: 04/07/252137 Narrative: This procedure was auto-finalized with no dictation required. MRI Tibia Fibula Right With & Without Contrast [[id number]] Collected: 04/07/25 0938 Updated: 04/07/25 1001 Narrative: [...] Buenrostro 04/07/2025 9:58 AM EDT Workstation ID: [id number] Impression: 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 (Treated by ID in [place] Dr. Harris). Dr. Torres treated him with [...] Buenrostro 04/07/2025 9:58 AM EDT Workstation ID: [id number] I have personally reviewed the therapy plans: [...] Support Discussed With: Patient Jason DO Preeti 04/07/25 * Larisa Hamilton, [facility] - 04/07/2025 11:56 AM EDT Pharmacy to [...] INFECTIOUS DISEASE Progress Note Won Dennis 1980 [id number] Date of Consult: 04/07/2025 Admission Date: 04/04/2025 [...] Oral, Q6H PRN, 500 mg at 04/06/25 2154 OR acetaminophen (TYLENOL) 160 MG/5ML oral solution [...] RT, Jason Álvarez DO, 2 puff at 04/06/251903 Calcium Replacement [...] MD, 20 mg at 04/06/25 0900 heparin 20029 units/250 mL (100 units/mL) in 0.45 % NaCl infusion, 18 Units/kg/hr, Intravenous, Titrated, Cherri Beatty, [facility], Last Rate: 24.1 mL/hr at 04/07/258, 18 [...] infusion 40 mL, 40 mL, Intravenous, PRN, Leonoar Shepherd MD tamsulosin (FLOMAX) 24 hr capsule 0.4 mg, 0.4 mg, Oral, Nightly, Leonora Shepherd MD, 0.4 mg at 04/06/25 2101 valsartan [...] With & Without Contrast - In process [[id number]] Resulted: 04/07/25828 Updated: 04/07/25828 This result has not been signed. Information might be incomplete. MRI Tibia Fibula Right With & Without Contrast [[id number]] Collected: 04/04/252256 Updated: 04/04/253 Narrative: MRI TIBIA FIBULA RIGHT W WO [...] represent a small area of phlegmonous change ([id number] image 10) measuring approximately 1.6 cm which [...] MD 04/04/2025 11:00 PM EDT Workstation ID: [id number] Impression: 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 (Treated by ID in [place] Dr. Harris). Dr. Torres treated him with [...] -- Admin Instructions: Open Order & Select [facility] Electrolyte Replacement Protocol Algorithm to View [...] mg Daily 04/05/2025 -- Route: Oral heparin 23945 units/250 mL (100 units/mL) in 0.45 % [...] -- Admin Instructions: Open Order & Select [facility] Electrolyte Replacement Protocol Algorithm to View [...] MD 04/07/25 06:07 EDT * Cherri Beatty [facility] - 04/06/2025 1:47 PM EDT Pharmacy to [...] 1200 DW RN 04/05 1215 0.17 11 2000 +3 14 2100 DW RN Pump checked 04/05 2043 0.38 14 -- -- 14 0300 RN 04/06 0530 0.25 14 -- +2 16 1200 DW RN Mary 04/06 1236 0.24 16 -- +2 18 2000 LU Beatty RPH 04/06/2025 13:48 EDT * [...] normal. Results Reviewed: LAB RESULTS: Lab 04/06/25 03404/05/25 0354 04/05/25 0018 04/04/25 1447 WBC 10.86* [...] MD 04/04/2025 11:00 PM EDT Workstation ID: [id number] I have personally reviewed the therapy plans: [...] mg Daily 04/05/2025 -- Route: Oral heparin 86661 units/250 mL (100 units/mL) in 0.45 % [...] -- Admin Instructions: Open Order & Select [facility] Electrolyte Replacement Protocol Algorithm to View [...] -- Admin Instructions: Open Order & Select [facility] Electrolyte Replacement Protocol Algorithm to View [...] INFECTIOUS DISEASE follow up. Won Dennis 1980 [id number] Date of Consult: 04/06/2025 Admission Date: 04/04/2025 [...] 2 puff, Inhalation, BID - RT, Jason Álvarez, DO Calcium Replacement - Follow Nurse / BPA Driven Protocol, , Not Applicable, PRN, Leonora Shepherd MD cefTRIAXone (ROCEPHIN) 2,000 mg in sodium chloride 0.9 % 100 mL MBP, 2,000 mg, Intravenous, Q24H, Carlton Mead MD, Last Rate: 200 mL/hr at 04/05/250, 2,000 mg at 04/05/25 2200 clotrimazole-betamethasone (LOTRISONE) [...] MD, 20 mg at 04/06/25 0900 heparin 99683 units/250 mL (100 units/mL) in 0.45 % NaCl infusion, 18 Units/kg/hr, Intravenous, Titrated, Cherri Beatty [facility], Last Rate: 24.1 mL/hr at 04/06/25 1420, [...] Tibia Fibula Right With & Without Contrast [[id number]] Collected: 04/04/252256 Updated: 04/04/252302 Narrative: MRI TIBIA [...] represent a small area of phlegmonous change ([id number] image 10) measuring approximately 1.6 cm which [...] MD 04/04/2025 11:00 PM EDT Workstation ID: [id number] Impression: 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 (Treated by ID in [place] Dr. Harris). Dr. Torres treated him with [...] Mead MD 04/06/2025 16:00 EDT * Cherri Beatty RP - 04/05/2025 3:01 PM EDT Pharmacy to [...] MD 04/04/2025 11:00 PM EDT Workstation ID: [id number] I have personally reviewed the therapy plans: [...] present. AM-PAC 6 Clicks Score (PT): 21 (04/05/2535) CODE STATUS: Code Status and Medical Interventions: [...] MD 04/04/2025 11:00 PM EDT Workstation ID: [id number] Assessment & Plan Assessment & Plan Won Dennis is a 44 y.o. 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 He is followed with Dr. Dean. Reports for the last 3 days right BKA has been swelling witherythema. ED provider spoke with Dr. Dean who [...] PICC placed by Rhoda Bonner RN [facility], tip verified by 3CG see LDA. * Sushil Dean Jr., MD - 04/05/2025 8:07 AM EDTAssociated Order(s): IP CONSULT TO ORTHOPEDIC SURGERY [facility], [facility] [address] [address] Orthopedic Consult Patient: Won Dennis Date of Admission: 04/04/2025 4:10 PM Date of : 1980 Attending Physician: Jason Álvarez DO Consulting Physician: Sushil Dean Jr, MD Chief Complaint: 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 male admitted to [facility] with 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]. He [...] was evaluated in the emergency department in [place], was discharged with instructions for follow-up. He [...] tablet by mouth Daily. 04/03/2025 Morning Lactobacillus-Inulin ([facility] Digestive [facility]) capsule Take 200 mg by mouth [...] MD 04/04/2025 11:00 PM EDT Workstation ID: [id number] Assessment: Right BKA infection 44-year-old male with [...] DISEASE CONSULT/INITIAL HOSPITAL VISIT Won Dennis 1980 [id number] Date of Consult: 04/05/2025 Admission Date: 04/04/2025 [...] Leonora Shepherd MD, 40 mg at 04/04/25 5515 sennosides-docusate (PERICOLACE) 8.6-50 MG per tablet 2 [...] Leonora Shepherd MD, 20 mg at 04/05/25 09 heparin 16266 units/250 mL (100 units/mL) in 0.45 % NaCl infusion, 11 Units/kg/hr, Intravenous, Titrated, Una Perla, PharmD, Last Rate: 14.74 mL/hr at 04/05/25 011, 11 Units/kg/hr at 04/05/25 011 hydroCHLOROthiazide tablet [...] Leonora Shepherd MD, 10 mg at 04/04/25 2359 Pharmacy to Dose Heparin, , Not Applicable, Continuous PRAmber, Una Perla, PharmD Pharmacy to dose vancomycin, , Not Applicable, Continuous PRJoao Pearson Laurie, MD Phosphorus Replacement - Follow Nurse / BPA Driven Protocol, , Not Applicable, Joao PAZ Laurie, MD Potassium Replacement - Follow Nurse [...] Q12H, Leonora Shepherd MD, 10 mL at 04/05/25915 sodium chloride 0.9 % flush 10 mL, 10 mL, Intravenous, PRN, Leonora Shepherd MD sodium chloride 0.9 % infusion 40 mL, 40 mL, Intravenous, PRN, Leonora Shepherd MD tamsulosin (FLOMAX) 24 hr capsule 0.4 mg, 0.4 mg, Oral, Nightly, Leonora hSepherd MD, 0.4 mg at 04/04/252358 valsartan (DIOVAN) tablet 40 mg, 40 mg, Oral, Q24H, Leonora Shepherd MD, 40 mg at 04/05/25914 vancomycin IVPB 1500 mg in 0.9% NaCl (Premix) 500 mL, 1,500 mg, Intravenous, Q12H, Una Perla, PharmD, Last Rate: 333.3 mL/hr at 04/05/25915, 1,500 mg at 04/05/25915 Antibiotics: Anti-Infectives (From admission, onward) Ordered Dose/Rate Route Frequency Start Stop 04/04/252005 cefTRIAXone (ROCEPHIN) 2,000 mg in sodium chloride 0.9 % 100 mL MBP Ordering Provider: Leonora Shepherd MD 2,000 mg 200 mL/hr over 30 Minutes Intravenous Every 24 Hours 04/05/25199904/09/25195804/05/25 0031 vancomycin IVPB 1500 mg in 0.9% NaCl (Premix) 500 mL Ordering Provider: Una Perla, PharmD 1,500 mg 333.3 mL/hr over 90 Minutes Intravenous Every 12 Hours 04/05/25 0800 04/12/25 0759 04/04/252004 Pharmacy to dose vancomycin Ordering Provider: Leonora Shepherd MD Not Applicable Continuous PRN 04/04/25200404/09/25200304/04/25 194 vancomycin 2750 mg/500 mL 0.9% NS [...] Tibia Fibula Right With & Without Contrast [[id number]] Collected: 04/04/252256 Updated: 04/04/252302 Narrative: MRI TIBIA [...] represent a small area of phlegmonous change ([id number] image 10) measuring approximately 1.6 cm which [...] MD 04/04/2025 11:00 PM EDT Workstation ID: [id number] Impression: 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 (Treated by ID in [place] Dr. Harris). Dr. Torres treated him with [...] Flowsheet Documentation Taken 04/09/2025 0000 by Bob oRsenberg RN Infection Prevention: environmental surveillance performed equipment [...] Pain Management Plan Recent Flowsheet Documentation Taken 04/08/20253 by Bob Rosenberg RN Pain Management Interventions: [...] - 04/08/2025 3:51 PM EDT [facility] OPERATIVE REPORT PATIENT NAME: Won Dennis DATE OF : 1980 PREOP DIAGNOSIS: Right Right below-knee amputation infection POSTOP DIAGNOSIS: Same. PROCEDURE: Right Right 04483: Secondary closure below-knee amputation SURGEON: Sushil Dean MD OPERATIVE TEAM: Sand Technologist: Susi Grullon RN Scrub Person: Mary Paredes Scrub Person Extra: Hortencia Toribio Other: Katt Gotti RN; Charis Neville RN ANESTHETIST: Anesthesiologist: Ulsies Hoffman MD MARBLEIZER: Stan Casillas CRNA Student Nurse Coding Validator: Karol Albert SRNA ANESTHESIA: Choice ESTIMATED BLOOD [...] CULTURE (Canceled) Sushil Dean Jr., MD 04/08/25 0970 Description: RIGHT LEG DEEP WOUND FOR CULTURE [...] Jr., MD - 04/07/2025 9:03 PM EDT [facility], [address] [address] OPERATIVE REPORT PATIENT NAME: Won Dennis DATE OF : 1980 PREOP DIAGNOSIS: Right Right below knee amputation stump infection POSTOP DIAGNOSIS: Same. PROCEDURE: Right Right 16671: Incision and drainage of surgical site infection 49227: Debridement of skin, subcutaneous tissue, muscle 32203: Wound vacuum-assisted closure SURGEON: Sushil Dean MD OPERATIVE TEAM: Sand Technologist: Anum Sanchez RN Scrub Person: Hortencia Toribio; Gerald Ivey [employer]PARED [employer]ODUCTION TEAM MEMBER: Anesthesiologist: Luci Alonso DO ANESTHESIA: General ESTIMATED [...] this chart in the absence of a excavating supervisor. No orders to display RADIOLOGY: [x] Radiologist's [...] injection 4 mg (4 mg Intravenous Given 04/04/25 1750) vancomycin 2750 mg/500 mL 0.9% NS IVPB ([facility]) (has no administration in time range) cefTRIAXone (ROCEPHIN) 2,000 mg in sodium chloride 0.9 % 100 mL MBP (has no administration in time range) ondansetron (ZOFRAN) injection 4 mg (4 mg Intravenous Given 04/04/25 1750) Gadopiclenol (VUEWAY) injection 7.5 mL (13.5 mL Intravenous Given 04/04/25 175) This is a very pleasant 44-year-old male [...] 04/11/2025 1:30 PM EDT Continued Stay Note DENISHA Munguia Patient Name: Won Dennis Today's Date: 04/11/2025 Admit Date: 04/04/2025 Plan: Home with outpatient infusion. Discharge Plan Row Name 04/11/25 1155 Plan Plan Home with outpatient infusion. Final Discharge Disposition Code 01 - home or self-care Final Note Patient discharging today. He is discharging home with outpatient infusion at [facility]. He has an appointment with [facility] at 8:00 am tomorrow. They will do PICC line dressing changes. DEBRA has spoke with Dena at [facility] today multiple times to get setup [...] to get IV ABX at home with [facility]; however, Medicaid lapsed on 04/08. DEBRA was unaware until this morning that Medicaid has lapsed. Patient explained that he has Medicare A and B. CM spoke with KELLEE and given themhis Medicare number [id number], she sent it to Admission. DEBRA spoke with Kerri, with [facility], and explained that he had Medicare A and B. However, it will not cover home infusion. It will be $64.00 a day out of packet. Patients can go to the Infusion center at [facility], and it will cover the cost as an outpatient. He will need to go there every day for infusion. They will be able to do the patients' PICC line dressing changes and lab work. DEBRA called [facility] Outpatient infusion center they can accept patient and start him. He is known for their facility. The Facility will need to run it through his insurance first. CM faxed the orders over to [facility] at [phone]. CM will follow up with them tomorrow at [facility] to make sure they received [...] 04/09/2025 2:51 PM EDT Continued Stay Note [facility] Patient Name: Won Dennis Today's Date: 04/09/2025 Admit Date: 04/04/2025 Plan: Home Discharge Plan Row Name 04/09/25 1311 Plan Plan Home Patient/Family in Agreement with Plan yes Plan Comments CM spoke with patient at bedside today. Wheelchair from [facility] is at bedside. Patient getting PICC line [...] note were not included. Discharge Planning Assessment [facility] Patient Name: Won Dennis Today's Date: [...] Anticipated Services at Transition telephonic nurse case managermanager fashion Anticipated family or friend will provide Discharge Needs Assessment Equipment Currently Used at Home glucometer;shower chair;pulse ox;bp cuff;prosthesis;crutches Equipment Needed After Discharge none Discharge Plan Row Name 04/07/25 1144 Plan Plan Home Patient/Family in Agreement with Plan yes Plan Comments CM spoke with patient at bedside today. Patient lives with and his 5 kids in [facility]. 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 He has walker, cane, shower chair, and crutches. He requested a wheelchair for home. CM [facility]. He is not current with home health services. PCP is Dr. Jordan. Insurance is [facility] Medicaid [place]. Patient discharge plan is home with priavte transport. CM will follow for any discharge needs. Final Discharge Disposition Code 01 - home or self-care Continued Care and Services - Admitted Since 04/04/2025 No active coordination exists. Demographic Summary Row Name 04/07/25 1143 General Information Arrived From hospital Preferred Language Czech Functional Status Row Name 04/07/25 1143 Functional [...] 3:4 0 PM EDT Right BKA infection HEPARIN ANTI XA Timed 04/08/2025 8:41 AM [...] Right BKA infection PLACEMENT OF WOUND VAC 8:36 PM EDT Right BKA infection LOWER [...] CBC Auto Differential (04/11/2025 3:40 AM EDT) [facility] WBC 7.87 3.40 - 10.80 10*3/mm3 04/11/2025 4:02 AM EDT [facility] RBC 4.70 4.14 - 5.80 10*6/mm3 04/11/2025 4:02 AM [facility] Hemoglobin 12.8(L) 13.0 - 17.7 g/dL [facility] Hematocrit 40.5 37.5 - 51.0 % 04/11/2025 4:02 AM [facility] MCV 86.2 79.0 - 97.0 fL 04/11/2025 4:[facility] MCH 27.2 26.6 - 33.0 pg 04/11/2025 4:02 AM [facility] MCHC 31.6 31.5 - 35.7 g/dL 04/11/2025 4:02 AM [facility] RDW 12.9 12.3 - 15.4 % 04/11/2025 4:02 AM [facility] RDW-SD 40.5 37.0 - 54.0 fl 04/11/2025 4:02 AM [facility] MPV 9.2 6.0 - 12.0 fL 04/11/2025 4:02 AM [facility] Platelets 267 140 - 450 10*3/mm3 04/11/2025 4:02 AM [facility] Neutrophil % 59.5 42.7 - 76.0 % 04/11/2025 4:02 AM [facility] Lymphocyte % 26.3 19.6 - 45.3 % 04/11/2025 4:02 AM [facility] Monocyte % 9.3 5.0 - 12.0 % 04/11/2025 4:02 [facility] Eosinophil % 4.1 0.3 - 6.2 % 04/11/2025 4:02 [facility] Basophil % 0.4 0.0 - 1.5 % 04/11/2025 4:02 [facility] Immature Grans % 0.4 0.0 - 0.5 % 04/11/2025 4:02 AM [facility] Neutrophils, Absolute 4.69 1.70 - 7.00 10*3/mm3 04/11/2025 4:02 AM EDT [facility] Lymphocytes, Absolute 2.07 0.70 - 3.10 10*3/mm3 04/11/2025 4:02 AM EDT [facility] Monocytes, Absolute 0.73 0.10 - 0.90 10*3/mm3 04/11/2025 4:02 AM EDT [facility] Eosinophils, Absolute 0.32 0.00 - 0.40 10*3/mm3 04/11/2025 4:02 AM EDT [facility] Basophils, Absolute 0.03 0.00 - 0.20 10*3/mm3 04/11/2025 4:02 AM EDT [facility] Immature Grans, Absolute 0.03 0.00 - 0.05 10*3/mm3 04/11/2025 4:02 AM EDT [facility] nRBC 0.0 0.0 - 0.2 /100 WBC 04/11/2025 4:02 AM EDT [facility] Blood Venipuncture / Unknown 04/11/2025 3:40 AM EDT 04/11/2025 3:59 AM EDT us Sushil Dean Jr., MD LAB BLOOD ORDERABLES Fi nal Result [facility]
[address] [place] [address], * (ABNORMAL) Comprehensive Metabolic Panel (04/11/2025 3:40 AM EDT) Glucose 108(H) 65 - 99 mg/dL 04/11/2025 4:19 AM EDT [facility] BUN 12.5 6.0 - 20.0 mg/dL 04/11/2025 4:19 AM EDT [facility] Creatinine 0.68(L) 0.76 - 1.27 mg/dL 04/11/2025 4:19 AM [facility] Sodium 140 136 - 145 mmol/L 04/11/2025 4:19 AM [facility] Potassium 3.8 3.5 - 5.2 mmol/L 04/11/2025 4:19 AM [facility] Chloride 105 98 - 107 mmol/L 04/11/2025 4:19 AM [facility] CO2 28.2 22.0 - 29.0 mmol/L 04/11/2025 4:19 AM [facility] Calcium 8.2(L) 8.6 - 10.5 mg/dL 04/11/2025 4:19 AM [facility] Total Protein 6.1 6.0 - 8.5 g/dL 04/11/2025 4:19 AM [facility] Albumin 3.1(L) 3.5 - 5.2 g/dL 04/11/2025 4:19 AM [facility] ALT (SGPT) 52(H) 1 - 41 U/L 04/11/2025 4:19 AM [facility] AST (SGOT) 40 1 - 40 U/L 04/11/2025 4:19 AM [facility] Alkaline Phosphatase 99 39 - 117 U/L 04/11/2025 4:19 AM [facility] Total Bilirubin 0.2 0.0 - 1.2 mg/dL 04/11/2025 4:19 AM [facility] Globulin 3.0 gm/dL 04/11/2025 4:19 AM [facility] Comment:Calculated Result A/G Ratio 1.0 g/dL 04/11/2025 4:19 AM [facility] BUN/Creatinine Ratio 18.4 7.0 - 25.0 04/11/2025 4:19 AM [facility] Anion Gap 6.8 5.0 - 15.0 mmol/L 04/11/2025 4:19 AM [facility] eGFR 117.5 >60.0 mL/min/1.7 3 04/11/2025 4:19 AM EDT [facility] Blood Venipuncture / Unknown 04/11/2025 3:40 AM EDT 04/11/2025 3:56 AM EDT [facility] - 04/11/2025 4:19 AM [...] include race as a factor Rosario Hill CORPORATE COMMUNICATIONS MANAGER LAB BLOOD ORDERABLES Final Result [facility]
[address] [place] [address], * (ABNORMAL) CBC Auto Differential (04/10/2025 3:46 AM EDT) WBC 9.60 3.40 - 10.80 10*3/mm3 04/10/2025 3:56 AM EDT [facility] RBC 4.67 4.14 - 5.80 10*6/mm3 04/10/2025 3:56 AM EDT [facility] Hemoglobin 12.9(L) 13.0 - 17.7 g/dL 04/10/2025 3:56 AM EDT [facility] Hematocrit 40.1 37.5 - 51.0 % 04/10/2025 3:56 AM EDT [facility] MCV 85.9 79.0 - 97.0 fL 04/10/2025 3:56 AM EDT [facility] MCH 27.6 26.6 - 33.0 pg 04/10/2025 3:56 AM EDT [facility] MCHC 32.2 31.5 - 35.7 g/dL 04/10/2025 3:56 [facility] RDW 12.9 12.3 - 15.4 % 04/10/2025 3:56 AM [facility] RDW-SD 40.5 37.0 - 54.0 fl 04/10/2025 3:56 AM [facility] MPV 9.5 6.0 - 12.0 fL 04/10/2025 3:56 AM EDT [facility] Platelets 227 140 - 450 10*3/mm3 04/10/2025 3:56 AM [facility] Neutrophil % 59.1 42.7 - 76.0 % 04/10/2025 3:56 AM [facility] Lymphocyte % 29.0 19.6 - 45.3 % 04/10/2025 3:56 AM [facility] Monocyte % 8.1 5.0 - 12.0 % 04/10/2025 3:56 AM [facility] Eosinophil % 3.2 0.3 - 6.2 % 04/10/2025 3:56 AM [facility] Basophil % 0.4 0.0 - 1.5 % 04/10/2025 3:56 AM [facility] Immature Grans % 0.2 0.0 - 0.5 % 04/10/2025 3:56 AM [facility] Neutrophils, Absolute 5.67 1.70 - 7.00 10*3/mm3 04/10/2025 3:56 AM [facility] Lymphocytes, Absolute 2.78 0.70 - 3.10 10*3/mm3 04/10/2025 3:56 AM [facility] Monocytes, Absolute 0.78 0.10 - 0.90 10*3/mm3 04/10/2025 3:56 AM [facility] Eosinophils, Absolute 0.31 0.00 - 0.40 10*3/mm3 04/10/2025 3:56 AM [facility] Basophils, Absolute 0.04 0.00 - 0.20 10*3/mm3 04/10/2025 3:56 AM EDT [facility] Immature Grans, Absolute 0.02 0.00 - 0.05 10*3/mm3 04/10/2025 3:56 AM EDT [facility] nRBC 0.0 0.0 - 0.2 /100 WBC 04/10/2025 3:56 AM EDT [facility] Blood Venipuncture / Unknown 04/10/2025 3:46 AM EDT 04/10/2025 3:53 AM EDT us Jason Álvarez DO LAB BLOOD ORDERABLES Final Resul t [facility]
[address] [place] [address], * (ABNORMAL) Basic Metabolic Panel (04/10/2025 3:46 AM EDT) Glucose 125(H) 65 - 99 mg/dL 04/10/2025 4:20 AM EDT [facility] BUN 15.9 6.0 - 20.0 mg/dL 04/10/2025 4:20 AM EDT [facility] Creatinine 0.77 0.76 - 1.27 mg/dL 04/10/2025 4:20 AM EDT [facility] Sodium 137 136 - 145 mmol/L 04/10/2025 4:20 AM EDT [facility] Potassium 3.9 3.5 - 5.2 mmol/L 04/10/2025 4:20 AM EDT [facility] Chloride 102 98 - 107 mmol/L 04/10/2025 4:20 AM EDT [facility] CO2 26.9 22.0 - 29.0 mmol/L 04/10/2025 4:20 AM EDT [facility] Calcium 7.9(L) 8.6 - 10.5 mg/dL 04/10/2025 4:[facility] BUN/Creatinine Ratio 20.6 7.0 - 25.0 04/10/2025 4:20 AM EDT [facility] Anion Gap 8.1 5.0 - 15.0 mmol/L 04/10/2025 4:20 AM EDT [facility] eGFR 113.2 >60.0 mL/min/1.7 3 04/10/2025 4:20 AM EDT [facility] Blood Venipuncture / Unknown 04/10/2025 3:46 AM EDT 04/10/2025 3:52 AM EDT Narrative [facility] - 04/10/2025 4:20 AM EDT GFR [...] BLOOD ORDERABLES Final Resul t [facility]
[address] [place] [address], * Heparin Anti-Xa (04/10/2025 3:46 AM EDT) Heparin Anti-Xa (UFH) 0.35 0.30 - 0.70 IU/ml 04/10/2025 4:23 AM EDT [facility] Blood Venipuncture / Unknown 04/10/2025 3:46 AM EDT 04/10/2025 3:53 AM EDT Larisa Hamilton [facility] LAB BLOOD ORDERABLES Final R esult [facility]
[address] [place] [address], * Heparin Anti-Xa (04/09/2025 10:05 AM EDT) Heparin Anti-Xa (UFH) 0.36 0.30 - 0.70 IU/ml 04/09/2025 11:12 AM EDT [facility] Blood Venipuncture / Unknown 04/09/2025 10:05 AM EDT 04/09/2025 10:47 AM EDT Larisa Hamilton [facility] LAB BLOOD ORDERABLES Final R esult [facility]
[address] [place] [address], * (ABNORMAL) CBC Auto Differential (04/09/2025 4:18 AM EDT) WBC 11.00(H) 3.40 - 10.80 10*3/mm3 04/09/2025 4:50 AM EDT [facility] RBC 4.70 4.14 - 5.80 10*6/mm3 04/09/2025 4:50 AM EDT [facility] Hemoglobin 13.0 13.0 - 17.7 g/dL 04/09/2025 4:50 AM EDT [facility] Hematocrit 40.4 37.5 - 51.0 % 04/09/2025 4:50 AM EDT [facility] MCV 86.0 79.0 - 97.0 fL 04/09/2025 4:50 AM EDT [facility] MCH 27.7 26.6 - 33.0 pg 04/09/2025 4:50 AM EDT [facility] MCHC 32.2 31.5 - 35.7 g/dL 04/09/2025 4:50 AM EDT [facility] RDW 12.8 12.3 - 15.4 % 04/09/2025 4:50 AM [facility] RDW-SD 39.9 37.0 - 54.0 fl 04/09/2025 4:50 AM [facility] MPV 10.0 6.0 - 12.0 fL 04/09/2025 4:50 AM [facility] Platelets 211 140 - 450 10*3/mm3 04/09/2025 4:50 AM [facility] Neutrophil % 74.8 42.7 - 76.0 % 04/09/2025 4:50 AM [facility] Lymphocyte % 15.4(L) 19.6 - 45.3 % 04/09/2025 4:50 AM [facility] Monocyte % 8.5 5.0 - 12.0 % 04/09/2025 4:50 AM [facility] Eosinophil % 0.6 0.3 - 6.2 % 04/09/2025 4:50 AM [facility] Basophil % 0.4 0.0 - 1.5 % 04/09/2025 4:50 AM [facility] Immature Grans % 0.3 0.0 - 0.5 % 04/09/2025 4:50 AM [facility] Neutrophils, Absolute 8.23(H) 1.70 - 7.00 10*3/mm3 04/09/2025 4:50 AM [facility] Lymphocytes, Absolute 1.69 0.70 - 3.10 10*3/mm3 04/09/2025 4:50 AM [facility] Monocytes, Absolute 0.94(H) 0.10 - 0.90 10*3/mm3 04/09/2025 4:50 AM [facility] Eosinophils, Absolute 0.07 0.00 - 0.40 10*3/mm3 04/09/2025 4:50 AM [facility] Basophils, Absolute 0.04 0.00 - 0.20 10*3/mm3 04/09/2025 4:50 AM [facility] Immature Grans, Absolute 0.03 0.00 - 0.05 10*3/mm3 04/09/2025 4:50 AM EDT [facility] nRBC 0.0 0.0 - 0.2 /100 WBC 04/09/2025 4:50 AM EDT [facility] Blood Venipuncture / Unknown 04/09/2025 4:18 AM EDT 04/09/2025 4:31 AM EDT Sushil Dean Jr., MD LAB BLOOD ORDERABLES Fi nal Result [facility]
[address] [place] [address], * Heparin Anti-Xa (04/09/2025 4:18 AM EDT) Heparin Anti-Xa ([facility]) 0.41 0.30 - 0.70 IU/ml 04/09/2025 4:53 AM EDT [facility] Blood Venipuncture / Unknown 04/09/2025 4:18 AM EDT 04/09/2025 4:31 AM EDT Una LundbergD LAB BLOOD ORDERABLES Final R esult [facility]
[address] [place] [address], * (ABNORMAL) Basic Metabolic Panel (04/09/2025 4:18 AM EDT) Glucose 147(H) 65 - 99 mg/dL 04/09/2025 5:33 AM EDT [facility] BUN 23.0(H) 6.0 - 20.0 mg/dL 04/09/2025 5:33 AM EDT [facility] Creatinine 1.15 0.76 - 1.27 mg/dL 04/09/2025 5:33 AM EDT [facility] Sodium 135(L) 136 - 145 mmol/L 04/09/2025 5:33 AM EDT [facility] Potassium 4.2 3.5 - 5.2 mmol/L 04/09/2025 5:33 AM EDT [facility] Chloride 100 98 - 107 mmol/L 04/09/2025 5:33 AM EDT [facility] CO2 26.0 22.0 - 29.0 mmol/L 04/09/2025 5:33 AM EDT [facility] Calcium 8.2(L) 8.6 - 10.5 mg/dL 04/09/2025 5:33 AM EDT [facility] BUN/Creatinine Ratio 20.0 7.0 - 25.0 04/09/2025 5:33 AM EDT [facility] Anion Gap 9.0 5.0 - 15.0 mmol/L 04/09/2025 5:33 AM EDT [facility] eGFR 80.5 >60.0 mL/min/1.7 3 04/09/2025 5:33 AM EDT [facility] Blood Venipuncture / Unknown 04/09/2025 4:18 AM EDT 04/09/2025 4:29 AM EDT [facility] - 04/09/2025 5:33 AM EDT GFR [...] LAB BLOOD ORDERABLES nal Result [facility]
[address] [place] [address], * Wound Culture - Swab, Leg, Right (04/08/2025 3:40 PM EDT) Wound Culture No growth at 3 days ALIZA 04/11/2025 10:40 AM EDT [facility] Gram Stain Few (2+) WBCs seen 04/11/2025 10:40 AM EDT [facility] Gram Stain No organisms seen 04/11/2025 10:40 AM EDT [facility] Swab Structure of right lower limb / Unknown 04/08/2025 3:40 PM EDT 04/08/2025 8:05 PM EDT Sushil Dean Jr., MD MICROBIOLOGY - GENERAL ORDERABLES Final Result Performing Organization Address City/[facility]/ZIP Co de Phone Number [facility]
[address] [place] [address], [facility]
[address] [place] [address], * Anaerobic Culture - Swab, Leg, Right (04/08/2025 3:40 PM EDT) Pathologist [facility] [place] Anaerobic Culture No anaerobes isolated at 5 days ALIZA 04/13/2025 7:24 AM EDT [facility] Swab Structure of right lower limb / Unknown 04/08/2025 3:40 PM EDT 04/08/2025 8:05 PM EDT Sushil Dean Jr., MD MICROBIOLOGY - GENERAL ORDERABLES Final Result [facility]
[address] [place] [address], * Scan Slide (04/08/2025 8:41 AM EDT) RBC Morphology Normal Normal 04/08/2025 11:02 AM EDT [facility] WBC Morphology Normal Normal 04/08/2025 11:02 AM EDT [facility] Platelet Estimate Adequate Normal 04/08/2025 11:02 AM EDT [facility] Clumped Platelets Present None Seen 04/08/2025 11:02 AM EDT [facility] Blood Venipuncture / Unknown 04/08/2025 8:41 AM EDT 04/08/2025 9:10 AM EDT Una Perla PharmD LAB BLOOD ORDERABLES Final R esult [facility]
[address] [place] [address], * (ABNORMAL) CBC Auto Differential (04/08/2025 8:41 AM EDT) WBC 10.07 3.40 - 10.80 10*3/mm3 04/08/2025 11:02 AM EDT [facility] RBC 5.01 4.14 - 5.80 10*6/mm3 04/08/2025 11:02 AM EDT [facility] Hemoglobin 14.0 13.0 - 17.7 g/dL 04/08/2025 11:02 AM EDT [facility] Hematocrit 42.7 37.5 - 51.0 % 04/08/2025 11:02 AM EDT [facility] MCV 85.2 79.0 - 97.0 fL 04/08/2025 11:02 AM EDT [facility] MCH 27.9 26.6 - 33.0 pg 04/08/2025 11:02 AM EDT [facility] MCHC 32.8 31.5 - 35.7 g/dL 04/08/2025 11:02 AM EDT [facility] RDW 12.6 12.3 - 15.4 % 04/08/2025 11:02 AM EDT [facility] RDW-SD 38.9 37.0 - 54.0 fl 04/08/2025 11:02 AM [facility] MPV 11.0 6.0 - 12.0 fL 04/08/2025 11:02 AM [facility] Platelets 118(L) 140 - 450 10*3/mm3 04/08/2025 11:02 AM [facility] Neutrophil % 85.1(H) 42.7 - 76.0 % 04/08/2025 11:02 AM [facility] Lymphocyte % 9.3(L) 19.6 - 45.3 % 04/08/2025 11:02 AM [facility] Monocyte % 4.6(L) 5.0 - 12.0 % 04/08/2025 11:02 AM [facility] Eosinophil % 0.3 0.3 - 6.2 % 04/08/2025 11:02 AM [facility] Basophil % 0.2 0.0 - 1.5 % 04/08/2025 11:02 AM [facility] Immature Grans % 0.5 0.0 - 0.5 % 04/08/2025 11:02 AM [facility] Neutrophils, Absolute 8.57(H) 1.70 - 7.00 10*3/mm3 04/08/2025 11:02 AM [facility] Lymphocytes, Absolute 0.94 0.70 - 3.10 10*3/mm3 04/08/2025 11:02 AM [facility] Monocytes, Absolute 0.46 0.10 - 0.90 10*3/mm3 04/08/2025 11:02 AM [facility] Eosinophils, Absolute 0.03 0.00 - 0.40 10*3/mm3 04/08/2025 11:02 AM [facility] Basophils, Absolute 0.02 0.00 - 0.20 10*3/mm3 04/08/2025 11:02 AM [facility] Immature Grans, Absolute 0.05 0.00 - 0.05 10*3/mm3 04/08/2025 11:02 AM EDT [facility] nRBC 0.0 0.0 - 0.2 /100 WBC 04/08/2025 11:02 AM EDT [facility] Blood Venipuncture / Unknown 04/08/2025 8:41 AM EDT 04/08/2025 9:10 AM EDT Una Perla PharmD LAB BLOOD ORDERABLES Final R esult [facility]
[address] [place] [address], * (ABNORMAL) Basic Metabolic Panel (04/08/2025 8:41 AM EDT) Glucose 125(H) 65 - 99 mg/dL 04/08/2025 9:51 AM EDT [facility] BUN 13.2 6.0 - 20.0 mg/dL 04/08/2025 9:51 AM EDT [facility] Creatinine 0.69(L) 0.76 - 1.27 mg/dL 04/08/2025 9:51 AM EDT [facility] Sodium 136 136 - 145 mmol/L 04/08/2025 9:51 AM EDT [facility] Potassium 4.6 3.5 - 5.2 mmol/L 04/08/2025 9:51 AM EDT [facility] Chloride 102 98 - 107 mmol/L 04/08/2025 9:51 AM EDT [facility] CO2 23.5 22.0 - 29.0 mmol/L 04/08/2025 9:51 AM EDT [facility] Calcium 8.4(L) 8.6 - 10.5 mg/dL 04/08/2025 9:51 AM EDT [facility] BUN/Creatinine Ratio 19.1 7.0 - 25.0 04/08/2025 9:51 AM EDT [facility] Anion Gap 10.5 5.0 - 15.0 mmol/L 04/08/2025 9:51 AM EDT [facility] eGFR 117.0 >60.0 mL/min/1.7 3 04/08/2025 9:51 AM EDT [facility] Blood Venipuncture / Unknown 04/08/2025 8:41 AM EDT 04/08/2025 9:09 AM EDT Narrative [facility] - 04/08/2025 9:51 AM EDT GFR [...] ORDERABLES Fi nal Result Performing Organization Address City/[facility]/ZIP Co de Phone Number [facility]
[address] [place] [address], * Heparin Anti-Xa (04/08/2025 8:41 AM EDT) Heparin Anti-Xa (UFH) 0.33 0.30 - 0.70 IU/ml 04/08/2025 9:40 AM EDT [facility] Blood Venipuncture / Unknown 04/08/2025 8:41 AM EDT 04/08/2025 9:10 AM EDT us Sushil Dean Jr., MD LAB BLOOD ORDERABLES Fi nal Result Performing Organization Address City/[facility]/ZIP Co de Phone Number [facility]
[address] [place] [address], [place] [phone] * [place] C Arm During Surgery (04/07/2025 [...] seen 04/11/2025 10:40 AM EDT [facility] Gram Stain No organisms seen 04/11/2025 10:40 AM EDT [facility] Swab Structure of right lower limb / Unknown Collection / Unknown 04/07/2025 9:14 PM EDT 04/08/2025 4:36 AM EDT us Sushil Dean Jr., MD MICROBIOLOGY - GENERAL ORDERABLES Final Result Performing Organization Address City/[facility]/ZIP Co de Phone Number [facility]
[address] [place] [address], [facility]
[address] [place] [address], * Anaerobic Culture - Swab, Leg, Right (04/07/2025 9:14 PM EDT) Anaerobic Culture No anaerobes isolated at 5 days ALIZA 04/13/2025 7:21 AM EDT [facility] Swab Structure of right lower limb / Unknown Collection / Unknown 04/07/2025 9:14 PM EDT 04/08/2025 4:36 AM EDT us Sushil Dean Jr., MD MICROBIOLOGY - GENERAL ORDERABLES Final Result [facility]
[address] [place] [address], * Anaerobic Culture - Tissue, Leg (04/07/2025 9:13 PM EDT) Anaerobic Culture No anaerobes isolated at 5 days ALIZA 04/13/2025 7:21 AM EDT [facility] Tissue Lower limb structure / Unknown Collection / Unknown 04/07/2025 9:13 PM EDT 04/08/2025 4:54 AM EDT Jason Álvarez DO MICROBIOLOGY - GENERAL ORDERABLE S Final Result [facility]
[address] [place] [address], * Tissue / Bone Culture - Tissue, Leg, Right (04/07/2025 9:13 PM EDT) [facility] Tissue Culture No growth at 3 days ALIZA 04/11/2025 10:36 AM EDT [facility] Gram Stain Rare (1+) WBCs seen 04/11/2025 10:36 AM EDT [facility] Gram Stain No organisms seen 04/11/2025 10:36 AM EDT [facility] Tissue Structure of right lower limb / Unknown 04/07/2025 9:13 PM EDT 04/08/2025 4:54 AM EDT Sushil Dean Jr., MD MICROBIOLOGY - GENERAL ORDERABLES Final Result [facility]
[address] [place] [address], [facility]
[address] [place] [address], * (ABNORMAL) Wound Culture - Swab, Leg, Right (04/07/2025 9:07 PM EDT) Wound Culture Light growth (2+) Staphylococcus aureus, MRSA(A) ALIZA 04/10/2025 10:38 AM EDT [facility] Comment: Methicillin resistant Staphylococcus aureus, Patient may be an isolation risk. Gram Stain Few (2+) WBCs seen 04/10/2025 10:38 AM EDT [facility] Gram Stain No organisms seen 10:38 AM EDT [facility] Swab Structure of right lower limb [...] aureus, MRSA Vancomycin ALIZA 1 ug/ml: Susceptible us Sushil Dean Jr., MD MICROBIOLOGY - GENERAL ORDERABLES Final Result [facility]
[address] [place] [address], [place] [phone] [facility]
[address] [place] [address], [place] [phone] * Anaerobic Culture - Swab, Leg, Right (04/07/2025 9:07 PM EDT) Anaerobic Culture No anaerobes isolated at 5 days ALIZA 04/13/2025 7:21 AM EDT [facility] Swab Structure of right lower limb / Unknown Collection / Unknown 04/07/2025 9:07 PM EDT 04/08/2025 4:36 AM EDT us Sushil Dean Jr., MD MICROBIOLOGY - GENERAL ORDERABLES Final Result [facility]
[address] [place] [address], * Heparin Anti-Xa (04/07/2025 9:10 AM EDT) [facility] Heparin Anti-Xa (UFH) 0.30 0.30 - 0.70 IU/ml 04/07/2025 10:12 AM EDT [facility] Blood Venipuncture / Unknown 04/07/2025 9:10 AM EDT 04/07/2025 9:38 AM EDT Una LundbergD LAB BLOOD ORDERABLES Final R esult [facility]
[address] [place] [address], [place] [phone] * (ABNORMAL) CBC Auto Differential (04/07/2025 9:10 AM EDT) [facility] WBC 8.63 3.40 - 10.80 10*3/mm3 04/07/2025 9:50 AM EDT [facility] RBC 5.23 4.14 - 5.80 10*6/mm3 04/07/2025 9:50 AM EDT [facility] Hemoglobin 14.7 13.0 - 17.7 g/dL 04/07/2025 9:50 AM EDT [facility] Hematocrit 44.8 37.5 - 51.0 % 04/07/2025 9:50 AM EDT [facility] MCV 85.7 79.0 - 97.0 fL 04/07/2025 9:50 AM EDT [facility] MCH 28.1 26.6 - 33.0 pg 04/07/2025 9:50 AM EDT [facility] MCHC 32.8 31.5 - 35.7 g/dL 04/07/2025 9:50 AM EDT [facility] RDW 12.8 12.3 - 15.4 % 04/07/2025 9:50 AM [facility] RDW-SD 39.9 37.0 - 54.0 fl 04/07/2025 9:50 AM [facility] MPV 10.8 6.0 - 12.0 fL 04/07/2025 9:50 AM [facility] Platelets 149 140 - 450 10*3/mm3 04/07/2025 9:50 AM [facility] Neutrophil % 66.7 42.7 - 76.0 % 04/07/2025 9:50 AM [facility] Lymphocyte % 20.5 19.6 - 45.3 % 04/07/2025 9:50 AM [facility] Monocyte % 9.8 5.0 - 12.0 % 04/07/2025 9:50 AM [facility] Eosinophil % 2.1 0.3 - 6.2 % 04/07/2025 9:50 AM [facility] Basophil % 0.3 0.0 - 1.5 % 04/07/2025 9:50 AM [facility] Immature Grans % 0.6(H) 0.0 - 0.5 % 04/07/2025 9:50 AM [facility] Neutrophils, Absolute 5.75 1.70 - 7.00 10*3/mm3 04/07/2025 9:50 AM [facility] Lymphocytes, Absolute 1.77 0.70 - 3.10 10*3/mm3 04/07/2025 9:50 AM [facility] Monocytes, Absolute 0.85 0.10 - 0.90 10*3/mm3 04/07/2025 9:50 AM [facility] Eosinophils, Absolute 0.18 0.00 - 0.40 10*3/mm3 04/07/2025 9:50 AM [facility] Basophils, Absolute 0.03 0.00 - 0.20 10*3/mm3 04/07/2025 9:50 AM [facility] Immature Grans, Absolute 0.05 0.00 - 0.05 10*3/mm3 04/07/2025 9:50 AM EDT [facility] nRBC 0.0 0.0 - 0.2 /100 WBC 04/07/2025 9:50 AM EDT [facility] Blood Venipuncture / Unknown 04/07/2025 9:10 AM EDT 04/07/2025 9:38 AM EDT Jasonalfonso Álvarez DO LAB BLOOD ORDERABLES Final Resul t [facility]
[address] [place] [address], * (ABNORMAL) Basic Metabolic Panel (04/07/2025 9:10 AM EDT) Glucose 112(H) 65 - 99 mg/dL 04/07/2025 10:19 AM EDT [facility] BUN 13.1 6.0 - 20.0 mg/dL 04/07/2025 10:19 AM EDT [facility] Creatinine 0.77 0.76 - 1.27 mg/dL 04/07/2025 10:19 AM EDT [facility] Sodium 139 136 - 145 mmol/L 04/07/2025 10:19 AM EDT [facility] Potassium 4.2 3.5 - 5.2 mmol/L 04/07/2025 10:19 AM EDT [facility] Comment:Specimen hemolyzed. Result may be falsely elevated. Chloride 105 98 - 107 mmol/L 04/07/2025 10:19 AM EDT [facility] CO2 24.8 22.0 - 29.0 mmol/L 04/07/2025 10:19 AM EDT [facility] Calcium 8.6 8.6 - 10.5 mg/dL 04/07/2025 10:19 AM EDT [facility] BUN/Creatinine Ratio 17.0 7.0 - 25.0 04/07/2025 10:19 AM EDT [facility] Anion Gap 9.2 5.0 - 15.0 mmol/L 04/07/2025 10:19 AM EDT [facility] eGFR 113.2 >60.0 mL/min/1.7 3 04/07/2025 10:19 AM EDT [facility] Blood Venipuncture / Unknown 04/07/2025 9:10 AM EDT 04/07/2025 9:38 AM EDT Narrative [facility] - 04/07/2025 10:19 AM EDT GFR [...] not include race as a factor Jason Preeti POWELL LAB BLOOD ORDERABLES Final Resul t [facility]
[address] [place] [address], * MRI Tibia Fibula Right With & [...] [place] 04/07/2025 9:58 AM EDT Workstation ID: [id number] Narrative 04/07/2025 9:58 AM EDT MRI TIBIA [...] [place] 04/07/2025 9:58 AM EDT Workstation ID: [id number] us Sushil Dean Jr., MD IM MRI ORDERABLES Mary Beth l Result * Heparin Anti-Xa (04/07/2025 1:42 AM EDT) [facility] Heparin Anti-Xa (UFH) 0.38 0.30 - 0.70 IU/ml 04/07/2025 2:14 AM EDT [facility] Blood Venipuncture / Unknown 04/07/2025 1:42 AM EDT 04/07/2025 1:54 AM EDT Chelsie Turpin [facility] LAB BLOOD ORDERABLES Final R esult [facility]
[address] [place] [address], * Heparin Anti-Xa (04/06/2025 7:16 PM EDT) [facility] Heparin Anti-Xa (UFH) 0.33 0.30 - 0.70 IU/ml 04/06/2025 7:50 PM EDT [facility] Blood Venipuncture / Unknown 04/06/2025 7:16 PM EDT 04/06/2025 7:35 PM EDT Cherri Rogerio RPH LAB BLOOD ORDERABLES Final Res ult Performing Organization Address City/[facility]/ZIP Co de Phone Number [facility]
[address] [place] [address], * Potassium (04/06/2025 7:16 PM EDT) Potassium 4.0 3.5 - 5.2 mmol/L 04/06/2025 7:53 PM EDT [facility] Blood Venipuncture / Unknown 04/06/2025 7:16 PM EDT 04/06/2025 7:35 PM EDT Jason Álvarez DO LAB BLOOD ORDERABLES Final Resul t Performing Organization Address [place]/[facility] de Phone Number [facility]
[address] [place] [address], * (ABNORMAL) Heparin Anti-Xa (04/06/2025 12:36 PM EDT) Heparin Anti-Xa (UFH) 0.24(L) 0.30 - 0.70 IU/ml 04/06/2025 1:23 PM EDT [facility] Blood Venipuncture / Unknown 04/06/2025 12:36 PM EDT 04/06/2025 1:07 PM EDT Una LundbergD LAB BLOOD ORDERABLES Final R esult Performing Organization Address City/[facility] Co de Phone Number [facility]
[address] [place] [address], * (ABNORMAL) Heparin Anti-Xa (04/06/2025 3:42 AM EDT) Pathologist [facility] [place] Heparin Anti-Xa (UFH) 0.25(L) 0.30 - 0.70 IU/ml 04/06/2025 5:30 AM EDT [facility] Blood Venipuncture / Unknown 04/06/2025 3:42 AM EDT 04/06/2025 4:59 AM EDT Chelsie Turpin [facility] LAB BLOOD ORDERABLES Final R esult [facility]
[address] [place] [address], * (ABNORMAL) Basic Metabolic Panel (04/06/2025 3:42 AM EDT) Pathologist [facility] [place] Glucose 94 65 - 99 mg/dL 04/06/2025 5:59 AM EDT [facility] BUN 12.8 6.0 - 20.0 mg/dL 04/06/2025 5:59 AM EDT [facility] Creatinine 0.80 0.76 - 1.27 mg/dL 04/06/2025 5:59 AM EDT [facility] Sodium 138 136 - 145 mmol/L 04/06/2025 5:59 AM EDT [facility] Potassium 3.6 3.5 - 5.2 mmol/L 04/06/2025 5:59 AM EDT [facility] Chloride 103 98 - 107 mmol/L 04/06/2025 5:59 AM EDT [facility] CO2 24.2 22.0 - 29.0 mmol/L 04/06/2025 5:59 AM EDT [facility] Calcium 8.0(L) 8.6 - 10.5 mg/dL 04/06/2025 5:59 AM EDT [facility] BUN/Creatinine Ratio 16.0 7.0 - 25.0 04/06/2025 5:59 AM EDT [facility] Anion Gap 10.8 5.0 - 15.0 mmol/L 04/06/2025 5:59 AM EDT [facility] eGFR 111.9 >60.0 mL/min/1.7 3 04/06/2025 5:59 AM EDT [facility] Blood Venipuncture / Unknown 04/06/2025 3:42 AM EDT 04/06/2025 5:20 AM EDT [facility] - 04/06/2025 5:59 AM EDT [...] BLOOD ORDERABLES Final Resul t [facility]
[address] [place] [address], * (ABNORMAL) CBC Auto Differential (04/06/2025 3:41 AM EDT) WBC 10.86(H) 3.40 - 10.80 10*3/mm3 04/06/2025 5:04 AM EDT [facility] RBC 5.08 4.14 - 5.80 10*6/mm3 04/06/2025 5:04 AM EDT [facility] Hemoglobin 13.9 13.0 - 17.7 g/dL 04/06/2025 5:04 AM EDT [facility] Hematocrit 43.7 37.5 - 51.0 % 04/06/2025 5:04 AM EDT [facility] MCV 86.0 79.0 - 97.0 fL 04/06/2025 5:04 AM [facility] MCH 27.4 26.6 - 33.0 pg 04/06/2025 5:04 AM [facility] MCHC 31.8 31.5 - 35.7 g/dL 04/06/2025 5:04 AM [facility] RDW 12.8 12.3 - 15.4 % 04/06/2025 5:04 AM [facility] RDW-SD 40.0 37.0 - 54.0 fl 04/06/2025 5:04 AM [facility] MPV 11.7 6.0 - 12.0 fL 04/06/2025 5:04 AM [facility] Platelets 115(L) 140 - 450 10*3/mm3 04/06/2025 5:04 AM [facility] Neutrophil % 65.3 42.7 - 76.0 % 04/06/2025 5:04 AM [facility] Lymphocyte % 20.5 19.6 - 45.3 % 04/06/2025 5:04 AM [facility] Monocyte % 11.8 5.0 - 12.0 % 04/06/2025 5:04 AM [facility] Eosinophil % 1.8 0.3 - 6.2 % 04/06/2025 5:04 AM [facility] Basophil % 0.3 0.0 - 1.5 % 04/06/2025 5:04 AM [facility] Immature Grans % 0.3 0.0 - 0.5 % 04/06/2025 5:04 AM [facility] Neutrophils, Absolute 7.09(H) 1.70 - 7.00 10*3/mm3 04/06/2025 5:04 AM [facility] Lymphocytes, Absolute 2.23 0.70 - 3.10 10*3/mm3 04/06/2025 5:04 AM [facility] Monocytes, Absolute 1.28(H) 0.10 - 0.90 10*3/mm3 04/06/2025 5:04 AM EDT [facility] Eosinophils, Absolute 0.20 0.00 - 0.40 10*3/mm3 04/06/2025 5:04 AM EDT [facility] Basophils, Absolute 0.03 0.00 - 0.20 10*3/mm3 04/06/2025 5:04 AM EDT [facility] Immature Grans, Absolute 0.03 0.00 - 0.05 10*3/mm3 04/06/2025 5:04 AM EDT [facility] nRBC 0.0 0.0 - 0.2 /100 WBC 04/06/2025 5:04 AM EDT [facility] Blood Venipuncture / Unknown 04/06/2025 3:41 AM EDT 04/06/2025 4:58 AM EDT Jason Álvarez DO LAB BLOOD ORDERABLES Final Resul t Performing Organization Address City/[facility] Co de Phone Number [facility]
[address] [place] [address], [place] [phone] * Heparin Anti-Xa (04/05/2025 8:43 PM EDT) Pathologist [facility] [place] Heparin Anti-Xa (UFH) 0.38 0.30 - 0.70 IU/ml 04/05/2025 9:09 PM EDT [facility] Blood Venipuncture / Unknown 04/05/2025 8:43 PM EDT 04/05/2025 8:55 PM EDT us Cherri Beatty [facility] LAB BLOOD ORDERABLES Final Res ult Performing Organization Address City/[facility]/ZIP Co de Phone Number [facility]
[address] [place] [address], [place] [phone] * CK (04/05/2025 12:15 PM EDT) Creatine Kinase 140 20 - 200 U/L 04/05/2025 1:31 PM EDT [facility] Blood Venipuncture / Unknown 04/05/2025 12:15 PM EDT 04/05/2025 1:03 PM EDT Carlton Mead MD LAB BLOOD ORDERABLES Final R esult Performing Organization Address City/[facility]/ZIP Co de Phone Number [facility]
[address] [place] [address], * (ABNORMAL) Heparin Anti-Xa (04/05/2025 12:15 PM EDT) Heparin Anti-Xa (UFH) 0.17(L) 0.30 - 0.70 IU/ml 04/05/2025 1:21 PM EDT [facility] Blood Venipuncture / Unknown 04/05/2025 12:15 PM EDT 04/05/2025 1:04 PM EDT Una Perla PharmD LAB BLOOD ORDERABLES Final R esult Performing Organization Address City/[facility] Co de Phone Number [facility]
[address] [place] [address], * (ABNORMAL) aPTT (04/05/2025 3:54 AM EDT) PTT 35.3(L) 60.0 - 90.0 seconds 04/05/2025 4:31 AM EDT [facility] Blood Venipuncture / Unknown 04/05/2025 3:54 AM EDT 04/05/2025 4:15 AM EDT Narrative [facility] - 04/05/2025 4:31 AM EDT PTT = The equivalent PTT values for the therapeutic range of heparin levels at 0.3 to 0.5 U/ml are 60 to 70 seconds. [employer] LAB BLOOD ORDERABLES Final R esult [facility]
[address] [place] [address], * Heparin Anti-Xa (04/05/2025 3:54 AM EDT) Pathologist [facility] [place] Heparin Anti-Xa (UFH) 0.30 0.30 - 0.70 IU/ml 04/05/2025 4:32 AM EDT [facility] Blood Venipuncture / Unknown 04/05/2025 3:54 AM EDT 04/05/2025 4:15 AM EDT [employer] LAB BLOOD ORDERABLES Final R esult Performing Organization Address City/[facility]/ZIP Co de Phone Number [facility]
[address] [place] [address], * (ABNORMAL) CBC Auto Differential (04/05/2025 3:54 AM EDT) [facility] WBC 11.18(H) 3.40 - 10.80 10*3/mm3 04/05/2025 4:20 AM EDT [facility] RBC 5.00 4.14 - 5.80 10*6/mm3 04/05/2025 4:20 AM EDT [facility] Hemoglobin 13.9 13.0 - 17.7 g/dL 04/05/2025 4:20 AM EDT [facility] Hematocrit 42.4 37.5 - 51.0 % 04/05/2025 4:20 AM EDT [facility] MCV 84.8 79.0 - 97.0 fL 04/05/2025 4:20 AM EDT [facility] MCH 27.8 26.6 - 33.0 pg 04/05/2025 4:20 AM EDT [facility] MCHC 32.8 31.5 - 35.7 g/dL 04/05/2025 4:20 AM [facility] RDW 12.9 12.3 - 15.4 % 04/05/2025 4:20 AM [facility] RDW-SD 39.7 37.0 - 54.0 fl 04/05/2025 4:20 AM [facility] MPV 10.2 6.0 - 12.0 fL 04/05/2025 4:20 AM [facility] Platelets 160 140 - 450 10*3/mm3 04/05/2025 4:20 AM [facility] Neutrophil % 73.5 42.7 - 76.0 % 04/05/2025 4:20 AM [facility] Lymphocyte % 14.0(L) 19.6 - 45.3 % 04/05/2025 4:20 AM [facility] Monocyte % 11.0 5.0 - 12.0 % 04/05/2025 4:20 AM [facility] Eosinophil % 0.8 0.3 - 6.2 % 04/05/2025 4:20 AM [facility] Basophil % 0.3 0.0 - 1.5 % 04/05/2025 4:20 AM [facility] Immature Grans % 0.4 0.0 - 0.5 % 04/05/2025 4:20 AM [facility] Neutrophils, Absolute 8.23(H) 1.70 - 7.00 10*3/mm3 04/05/2025 4:20 AM [facility] Lymphocytes, Absolute 1.56 0.70 - 3.10 10*3/mm3 04/05/2025 4:20 AM [facility] Monocytes, Absolute 1.23(H) 0.10 - 0.90 10*3/mm3 04/05/2025 4:20 AM [facility] Eosinophils, Absolute 0.09 0.00 - 0.40 10*3/mm3 04/05/2025 4:20 AM [facility] Basophils, Absolute 0.03 0.00 - 0.20 10*3/mm3 04/05/2025 4:20 AM EDT [facility] Immature Grans, Absolute 0.04 0.00 - 0.05 10*3/mm3 04/05/2025 4:20 AM EDT [facility] nRBC 0.0 0.0 - 0.2 /100 WBC 04/05/2025 4:20 AM EDT [facility] Blood Venipuncture / Unknown 04/05/2025 3:54 AM EDT 04/05/2025 4:16 AM EDT Una Perla PharmD LAB BLOOD ORDERABLES Final R esult [facility]
[address] [place] [address], * (ABNORMAL) Basic Metabolic Panel (04/05/2025 3:54 AM EDT) Glucose 152(H) 65 - 99 mg/dL 04/05/2025 4:40 AM EDT [facility] BUN 17.3 6.0 - 20.0 mg/dL 04/05/2025 4:40 AM EDT [facility] Creatinine 0.92 0.76 - 1.27 mg/dL 04/05/2025 4:40 AM EDT [facility] Sodium 136 136 - 145 mmol/L 04/05/2025 4:40 AM EDT [facility] Potassium 3.9 3.5 - 5.2 mmol/L 04/05/2025 4:40 AM EDT [facility] [facility] Chloride 103 98 - 107 mmol/L 04/05/2025 4:40 AM EDT [facility] CO2 24.0 22.0 - 29.0 mmol/L 04/05/2025 4:40 AM EDT [facility] Calcium 7.8(L) 8.6 - 10.5 mg/dL 04/05/2025 4:40 AM EDT [facility] BUN/Creatinine Ratio 18.8 7.0 - 25.0 04/05/2025 4:40 AM EDT [facility] Anion Gap 9.0 5.0 - 15.0 mmol/L 04/05/2025 4:40 AM EDT [facility] eGFR 105.2 >60.0 mL/min/1.7 3 04/05/2025 4:40 AM EDT [facility] Blood Venipuncture / Unknown 04/05/2025 3:54 AM EDT 04/05/2025 4:15 AM EDT [facility] - 04/05/2025 4:40 AM [...] MD LAB BLOOD ORDERABLES Final Re sult [facility]
[address] [place] [address], * (ABNORMAL) aPTT (04/05/2025 12:18 AM EDT) PTT 33.6(L) 60.0 - 90.0 seconds 04/05/2025 12:53 AM EDT [facility] Blood Venipuncture / Unknown 04/05/2025 12:18 AM EDT 04/05/2025 12:37 AM EDT [facility] - 04/05/2025 12:53 AM EDT PTT = The equivalent PTT values for the therapeutic range of heparin levels at 0.3 to 0.5 U/ml are 60 to 70 seconds. [facility] LAB BLOOD ORDERABLES Final R esult Performing Organization Address City/[facility]/ZIP Co de Phone Number [facility]
[address] [place] [address], * (ABNORMAL) Protime-INR (04/05/2025 12:18 AM EDT) Protime 15.9(H) 12.2 - 15.3 Seconds 04/05/2025 12:53 AM EDT [facility] INR 1.19(H) 0.89 - 1.12 04/05/2025 12:53 AM EDT [facility] Blood Venipuncture / Unknown 04/05/2025 12:18 AM EDT 04/05/2025 12:37 AM EDT [facility] LAB BLOOD ORDERABLES Final R esult Performing Organization Address [place]/[facility] Co de Phone Number [facility]
[address] [place] [address], * Heparin Anti-Xa (04/05/2025 12:18 AM EDT) Heparin Anti-Xa (UFH) 0.39 0.30 - 0.70 IU/ml 04/05/2025 12:54 AM EDT [facility] Blood Venipuncture / Unknown 04/05/2025 12:18 AM EDT 04/05/2025 12:37 AM EDT [facility] LAB BLOOD ORDERABLES Final R esult Performing Organization Address City/[facility] Co de Phone Number [facility]
[address] [place] [address], * MRI Tibia Fibula Right With & Without Contrast (04/04/2025 5:54 PM EDT) Anatomical Region Laterality Modality Lower Extremities, Lower Leg [facility] 04/04/2025 10:5 7 PM EDT Impressions [...] MD 04/04/2025 11:00 PM EDT Workstation ID: [id number] Narrative 04/04/2025 11:00 PM EDT MRI TIBIA [...] MD 04/04/2025 11:00 PM EDT Workstation ID: [id number] Leonora Shepherd MD IMG MRI ORDERABLES Final Resu lt * POC Creatinine (04/04/2025 2:49 PM EDT) Creatinine 1.10 0.60 - 1.30 mg/dL 04/07/2025 7:14 PM EDT [facility] Comment:Serial Number: [id number] Venous Blood 04/04/2025 2:49 PM EDT 04/07/2025 7:14 PM EDT Jason Álvarez DO POINT OF CARE TEST ORDERABLES Fi nal Result [facility]
[address] [place] [address], * (ABNORMAL) CBC Auto Differential (04/04/2025 2:47 PM EDT) [facility] WBC 12.72(H) 3.40 - 10.80 10*3/mm3 04/04/2025 2:56 PM EDT [facility] RBC 5.64 4.14 - 5.80 10*6/mm3 04/04/2025 2:56 PM EDT [facility] Hemoglobin 15.3 13.0 - 17.7 g/dL 04/04/2025 2:56 PM EDT [facility] Hematocrit 47.9 37.5 - 51.0 % 04/04/2025 2:56 PM EDT [facility] MCV 84.9 79.0 - 97.0 fL 04/04/2025 2:56 PM EDT [facility] MCH 27.1 26.6 - 33.0 pg 04/04/2025 2:56 PM EDT [facility] MCHC 31.9 31.5 - 35.7 g/dL 04/04/2025 2:56 PM EDT [facility] RDW 13.1 12.3 - 15.4 % 04/04/2025 2:56 PM EDT [facility] RDW-SD 40.3 37.0 - 54.0 fl 04/04/2025 2:56 PM EDT [facility] MPV 9.4 6.0 - 12.0 fL 04/04/2025 2:56 PM EDT [facility] Platelets 232 140 - 450 10*3/mm3 04/04/2025 2:56 PM EDT [facility] Neutrophil % 74.9 42.7 - 76.0 % 04/04/2025 2:56 PM EDT [facility] Lymphocyte % 13.1(L) 19.6 - 45.3 % 04/04/2025 2:56 PM EDT [facility] Monocyte % 11.2 5.0 - 12.0 % 04/04/2025 2:56 PM EDT [facility] Eosinophil % 0.4 0.3 - 6.2 % 04/04/2025 2:56 PM EDT [facility] Basophil % 0.2 0.0 - 1.5 % 04/04/2025 2:56 PM EDT [facility] Immature Grans % 0.2 0.0 - 0.5 % 04/04/2025 2:56 PM EDT [facility] Neutrophils, Absolute 9.52(H) 1.70 - 7.00 10*3/mm3 04/04/2025 2:56 PM EDT [facility] Lymphocytes, Absolute 1.66 0.70 - 3.10 10*3/mm3 04/04/2025 2:56 PM EDT [facility] Monocytes, Absolute 1.43(H) 0.10 - 0.90 10*3/mm3 04/04/2025 2:56 PM EDT [facility] Eosinophils, Absolute 0.05 0.00 - 0.40 10*3/mm3 04/04/2025 2:56 PM EDT [facility] Basophils, Absolute 0.03 0.00 - 0.20 10*3/mm3 04/04/2025 2:56 PM EDT [facility] Immature Grans, Absolute 0.03 0.00 - 0.05 10*3/mm3 04/04/2025 2:56 PM EDT [facility] nRBC 0.0 0.0 - 0.2 /100 WBC 04/04/2025 2:56 PM EDT [facility] Blood Venipuncture / Unknown 04/04/2025 2:47 PM EDT 04/04/2025 2:52 PM EDT us Mario Crowley DO LAB BLOOD ORDERABLES Fin al Result [facility]
[address] [place] [address], * (ABNORMAL) C-reactive Protein (04/04/2025 2:47 PM EDT) [facility] Signature C-Reactive Protein 8.57(H) 0.00 - 0.50 mg/dL 04/04/2025 3:26 PM EDT [facility] Blood Venipuncture / Unknown 04/04/2025 2:47 PM EDT 04/04/2025 2:52 PM EDT [facility] Fin al Result Performing Organization Address City/[facility]/ZIP Co de Phone Number [facility]
[address] [place] [address], * (ABNORMAL) Sedimentation Rate (04/04/2025 2:47 PM EDT) [facility] Sed Rate 51(H) 0 - 15 mm/hr 04/04/2025 3:06 PM EDT [facility] Blood Venipuncture / Unknown 04/04/2025 2:47 PM EDT 04/04/2025 2:52 PM EDT [facility] BLOOD ORDERABLES Fin al Result Performing Organization Address City/[facility] Co de Phone Number [facility]
[address] [place] [address], * Comprehensive Metabolic Panel (04/04/2025 2:47 PM EDT) [facility] Glucose 90 65 - 99 mg/dL 04/04/2025 3:26 PM EDT [facility] BUN 18.3 6.0 - 20.0 mg/dL 04/04/2025 3:26 PM EDT [facility] Creatinine 0.94 0.76 - 1.27 mg/dL 04/04/2025 3:26 PM EDT [facility] Sodium 136 136 - 145 mmol/L 04/04/2025 3:26 PM EDT [facility] Potassium 3.8 3.5 - 5.2 mmol/L 04/04/2025 3:26 PM EDT [facility] Chloride 100 98 - 107 mmol/L 04/04/2025 3:26 PM EDT [facility] CO2 25.3 22.0 - 29.0 mmol/L 04/04/2025 3:26 PM EDT [facility] Calcium 8.6 8.6 - 10.5 mg/dL 04/04/2025 3:26 PM T [facility] Total Protein 7.3 6.0 - 8.5 g/dL 04/04/2025 3:26 PM EDT [facility] Albumin 4.1 3.5 - 5.2 g/dL 04/04/2025 3:26 PM T [facility] ALT (SGPT) 26 1 - 41 U/L 04/04/2025 3:26 PM [facility] AST (SGOT) 25 1 - 40 U/L 04/04/2025 3:26 PM [facility] Alkaline Phosphatase 106 39 - 117 U/L 04/04/2025 3:26 PM T [facility] Total Bilirubin 1.0 0.0 - 1.2 mg/dL 04/04/2025 3:26 PM T [facility] Globulin 3.2 gm/dL 04/04/2025 3:26 PM [facility] Comment:Calculated Result A/G Ratio 1.3 g/dL 04/04/2025 3:26 PM [facility] BUN/Creatinine Ratio 19.5 7.0 - 25.0 04/04/2025 3:26 PM [facility] Anion Gap 10.7 5.0 - 15.0 mmol/L 04/04/2025 3:26 PM [facility] eGFR 102.5 >60.0 mL/min/1.7 3 04/04/2025 3:26 PM [facility] Blood Venipuncture / Unknown 04/04/2025 2:47 PM EDT 04/04/2025 2:52 PM EDT Narrative [facility] - 04/04/2025 3:26 PM EDT GFR [...] BLOOD ORDERABLES Fin al Result [facility]
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, initial encounter Right BKA infection Right BKA infection documented in this encounter Admitting Diagnoses Diagnosis Right BKA infection documented in this encounter Administered Medications Inactive Administered Medications - up to 3 most recent administrations Medication Order MAR Action Action Date Dose Rate Site acetaminophen (TYLENOL) 160 MG/5ML oral solution 500 [...] Electrolyte Replacement Protocol Algorithm to View Details chlorhexidine (IRRISEPT) 0.05 % in sterile water As Needed, Starting on 04/07/25 at 2108 Given 04/07/2025 9:08 PM EDT 450 mL DAPTOmycin (CUBICIN) 800 mg in sodium chloride [...] 9:07 AM EDT 800 mg 100 mL/hr ferrous sulfate tablet 325 mg 325 mg, [...] Given 04/09/2025 9:07 AM EDT 20 mg hydroCHLOROthiazide tablet 12.5 mg 12.5 mg, Oral, Daily, First dose on 04/05/25 at 0900, Caution: Look alike/sound alike drug alert Given 04/11/2025 10:01 AM EDT 12.5 mg Given 04/10/2025 9:06 AM EDT 12.5 mg Given 04/09/2025 9:06 AM EDT 12.5 mg Magnesium Standard Dose Replacement - Follow Nurse / BPA Driven Protocol Open Order & Select [facility] Electrolyte Replacement Protocol Algorithm to View Details naloxone (NARCAN) injection 0.4 mg 0.4 mg, [...] Given 04/08/2025 8:07 PM EDT 10 mg Phosphorus Replacement - Follow Nurse / BPA Driven Protocol Open Order & Select [facility] Electrolyte Replacement Protocol Algorithm to View Details polyethylene glycol (MIRALAX) packet 17 g 17 g, Oral, Daily PRN, Constipation, Use if senna-docusate is ineffective, Starting on Mon04/04/25 at 2008, Use if no bowel movement after 12 hours. Mix in 6-8 ounces of water. Use 4-8 ounces of water, tea, or juice for each 17 gram dose. Potassium Replacement - Follow Nurse / BPA Driven Protocol Open Order & Select [facility] Electrolyte Replacement Protocol Algorithm to View [...] Given 04/06/2025 8:59 AM EDT 40 mg xperience advanve surgical irrigation solution As Needed, Starting on 04/07/25 at 2108 Given 04/07/2025 9:08 PM EDT 4 50 mL documented in this encounter Active and Recently [...] RN)2030 (Given - Provider: Alberto Dillon RN) 1001 (Given - Provider: Marguerite Wakefield, LU) atorvastatin (LIPITOR) tablet 40 mg 40 mg, Oral, Nightly, First dose on Mon04/04/25 at 2100, Avoid grapefruit juice. 2026 (Given - Provider: Alberto Dillon RN) [...] Salazar, KELL)1943 (Given - Provider: Anahy Marcelino, SAND TECHNOLOGIST)2129 (Canceled Entry - Provider: Anahy Marcelino SAND TECHNOLOGIST - Comment: previously given) 0837 (Given - Provider: Amber Salazar RRT)2006 (Given - Provider: Loree Reese RRT)2129 (Canceled Entry - Provider: Loree Reese RRT) [...] rash. 1148 (Given - Provider: Shirley Hart RN)2027 (Given - Provider: Alberto Dillon RN) DAPTOmycin (CUBICIN) 800 mg in sodium [...] Take with food if GI upset occurs. 09 (Given - Provider: Shirley Hart RN)2026 (Given - Provider: Alberto Dillon RN) 09 (Given - Provider: Shirley Hart [...] 09 (Given - Provider: Shirley Hart RN) 0906 (Given - Provider: Shirley Hart, LU) 100 [...] Dillon RN) 2030 (Given - Provider: Alberto Dillon, RN) saccharomyces boulardii (FLORASTOR) capsule 250 mg 250 mg, Oral, 2 Times Daily, First dose on Mon04/04/25 at 2102 0907 (Given - Provider: Shirley Hart RN)2026 (Given - Provider: Alberto Dillon RN) 0906 (Given - Provider: Shirley Hart, LU)2030 (Given [...] Continuous Medication Order 04/09/2025 04/10/2025 04/11/2025 heparin 86839 units/250 mL (100 units/mL) in 0.45 % [...] Given: See Alt - Provider: Shirley Hart, LU)1508 (Not Given: See Alt - Provider: Shirley [...] RN) 0906 (Given - Provider: Shirley Hart, LU)1508 (Given - Provider: Shirley Hart, LU) bisacodyl (DULCOLAX) EC tablet 5 mg(Linked Group [...] 5-8 0413 (Given - Provider: Bob Rosenberg, RN)0614 (Given - Provider: Bob Rosenberg, RN)1006 (Given - Provider: Shirley Hart, RN)1220 (Given - Provider: Shirley Hart, RN)1438 (Given - Provider: Shirley Hart, RN)1628 (Given - Provider: Shirley Hart, RN)1815 (Given - Provider: Shirley Hart, RN)2033 (Given - Provider: Alberto Dillon, RN)2245 (Given - Provider: Alberto Dillon, RN) 0109 (Given - Provider: Alberto Dillon, RN)0655 (Given - Provider: Alberto Dillon, RN)1414 (Given - Provider: Shirley Hart, RN)2124 (Given - Provider: Alberto Dillon, LU) 1003 [...] Hart, RN)1508 (Given - Provider: Shirley Hart, RN)2030 (Given - Provider: Alberto Dillon, LU) Phosphorus Replacement - Follow Nurse / BPA Driven Protocol Open Order & Select S Electrolyte Replacement Protocol Algorithm to View Details polyethylene glycol (MIRALAX) packet 17 g(Linked Group 2) 17 g, Oral, Daily PRN, Constipation, Use if senna-docusate is ineffective, Starting on Mon04/04/25 at 2008, Use if no bowel movement after 12 hours. Mix in 6-8 ounces of water. Use 4-8 ounces of water, tea, or juice for each 17 gram dose. Potassium Replacement - Follow Nurse / BPA Driven Protocol Open Order & Select [facility] Electrolyte Replacement Protocol Algorithm to View [...] documented as of this encounter Care Teams School Aide Relationship Specialty Start Date End Date Provider, [place] [address] PCP - General 05/09/23 documented as of this encounter
--- OUTSIDE RECORDS SUMMARY | 2025-04-07 19:36 | XMS_ITS | Encounter Summary ---
Author Organization [facility] Address [address] [place] [address] Care Team Providers Care Mechanic Foreman Name Role Phone Provider, No Known Primary Care Provider Unavail able Reason for Visit * Auth/Cert Specialty Diagnoses / Procedures Referred By Bulmaro muniz Referred To Contact Diagnoses Right BKA infection Referral ID Status Reason Start Date Expiration Date Visits Re quested Visits Authorized [id number] 1 1 Encounter Details Date Type Department Care Team (Late st Contact Info) Description 04/07/2025 8:36 PM EDT Anesthesia Event [facility] OR [address] [place] [address] Luci Alonso DO [address] [place] [address] Anesthesia Record Procedure Summary Procedure Name Responsible [...] Recorded In the past 12 months has [employer], gas, oil, or water [employer] threatened to shut off services in your [...] or training? Not on file Preferred Language Somali 04/07/2025 Sex and Gender Information Value Date [...] PACU on O2NC, breathing comfortably. Report to HEAD IRRIGATOR at bedside. VSS. * Anesthesia Procedure Notes [...] Musculoskeletal Abdominal Substance History - negative use SALVAGER Other ROS/Med Hx Other: Eliquis 04/04/25 Hgb 14.7 k 43.2 Factor 2 on eliquis +gerd Anesthesia Plan ASA 3 - emergent general Rapid sequence (Risks and benefits of general anesthesia discussed with patient (including [place], CVA, , recall,aspiration, oropharyngeal/dental damage), questions answered, agreeable to proceed. ) intravenous induction Anesthetic plan, risks, benefits, and alternatives have been provided, discussed and informed consent has been obtained with: patient. Plan discussed with INFORMATICS DEVELOPER. CODE STATUS: Code Status (Patient has no [...] documented as of this encounter Care Teams Mechanic Foreman Relationship Specialty Start Date End Date Provider, No Known [facility] [address] PCP - General 05/09/23 documented as of this encounter
--- OUTSIDE RECORDS SUMMARY | 2025-04-08 13:45 | XMS_ITS | Encounter Summary ---
[facility] Address [address] [place] [address] Care Team Providers Care Running Instructor Name Role Phone Provider, No Known Primary Care Provider Unavail able Reason for Visit * Reason Comments Leg Swelling * Auth/Cert Specialty Diagnoses / Procedures Referred By Contac t Referred To Contact Diagnoses Right BKA infection Referral ID Status Reason Start Date Expiration Date Visits Re quested Visits Authorized [id number] 1 1 Encounter Details Date Type Department Care Team (Late st Contact Info) Description 04/08/2025 2:45 PM EDT - 04/08/2025 4:04 PM EDT Surgery [facility] OR [address] [place] [address] Sushil Dean Jr., MD [address] [place] [address] [address] [id number] LEG DEBRIDEMENT AND IRRIGATION Social History Tobacco Use Types Packs/Day Years Used Date Smoking Tobacco: Never Smokeless Tobacco: Never Tobacco Cessation:Counseling Given: Not Answered Alcohol Use Standard Drinks/Week Comments Not Currently 0 (1 standard drink = 0.6 oz pur e alcohol) [facility] Utilities Answer Date Recorded In the past 12 months has [employer] electric, gas, oil, or water company threatened [...] 2:25 PM EDT Cherri Grimm RN * [place] Suicide Severity Rating Scale (Screener/Recent Self-Report) Question [...] from the original note were not included. [facility] Medicine Services DISCHARGE SUMMARY Patient [...] Date/Time Wound Culture - Swab, Leg, Right [[id number]] (Abnormal) (Susceptibility) Collected: 04/07/252106 Lab Status: Final [...] Units Date/Time FL C Arm During Surgery [[id number]] Resulted: 04/07/252137 Updated: 04/07/252137 Narrative: This procedure was auto-finalized with no dictation required. MRI Tibia Fibula Right With & Without Contrast [[id number]] Collected: 04/07/25 0938 Updated: 04/07/25 1001 Narrative: [...] Buenrostro 04/07/2025 9:58 AM EDT Workstation ID: [id number] MRI Tibia Fibula Right With & Without Contrast [[id number]] Collected: 04/04/252256 Updated: 04/04/252302 Narrative: MRI TIBIA [...] represent a small area of phlegmonous change ([id number] image 10) measuring approximately 1.6 cm which [...] MD 04/04/2025 11:00 PM EDT Workstation ID: [id number] Pending Labs Order Current Status Fungus Culture [...] Male) Date of 1980 Social Security Number [id number] [place] [address] [place] [id number] Congregation Unknown Marital Status Unknown Admission Date [...] Group HU[employer]NA MEDICAID ID HUMANA MEDICAID ID [id number] Payor Plan Address Payor Plan Phone Number Payor Plan Fax Number Effective Dates [employer] [address] [address] 08/10/2023 - None Entered [facility] [address] Subscriber Name Subscriber Date Member ID WON DENNIS 1980 [id number] Emergency Contacts Bath Steward/Stewardess (Rel.) Home Phone Work Phone Mobile Phone Avirl Dennis (Spouse) -- -- [phone] Robert Hackett (Relative) -- -- [phone] [facility] 5G [address] [facility] [address] Patient: ROOM: [facility] Won Dennis [address] [facility] [place] [place] [id number] : 1980 SSN: [id number] Sex: M PCP: Provider, No Known Emergency Contact Information Name Relation Home Work Mobile Avril Dennis Spouse [phone] Other Contacts Name Relation Home Work Mobile Robert Hackett Relative [phone] INSURANCE PAYOR PLAN GROUP # SUBSCRIBER ID Primary: Secondary: MEDICARE [employer] [id number] Admitting Diagnosis: 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] Order Date: Apr 09, 2025 Case Management Traffic Incident Management Manager Consult (Order ID: [id number]) Diagnosis: Priority: Routine Expected Date: Expiration Date: [...] INFECTIOUS DISEASE Progress Note Won Dennis 1980 [id number] Date of Consult: 04/10/2025 Admission Date: 04/04/2025 [...] Jr., MD, 20 mg at 04/09/25906 heparin 03321 units/250 mL (100 units/mL) in 0.45 % [...] vancomycin 2750 mg/500 mL 0.9% NS IVPB ([facility]) Ordering Provider: Mario Crowley, DO [...] Units Date/Time FL C Arm During Surgery [[id number]] Resulted: 04/07/252137 Updated: 04/07/252137 Narrative: This procedure was auto-finalized with no dictation required. MRI Tibia Fibula Right With & Without Contrast [[id number]] Collected: 04/07/2538 Updated: 04/07/25 1001 Narrative: MRI [...] Buenrostro 04/07/2025 9:58 AM EDT Workstation ID: [id number] Impression: Recurrent Right BKA stump abscess/cellulitis- this [...] 04/10/251323 Creation Time: 04/10/251323 Signed Expand [facility] Medicine Services PROGRESS NOTE Patient [...] Date/Time Wound Culture - Swab, Leg, Right [[id number]] (Abnormal) (Susceptibility) Collected: 04/07/252106 Lab Status: Final [...] Row Name 04/06/25 1143 Sit-Stand Transfer Sit-Stand [place] (Transfers) modified independence - Comment, (Sit-Stand Transfer) Pt stood from recliner. Not holding onto walker, pt able to pull his pants up while balancing on his one leg. -LM Row Name 04/06/25 1143 Gait/Stairs (Locomotion) [place] Level (Gait) modified independence - Distance in [...] Motion bilateral lower extremity ROM WFL -LM [facility] Name 04/06/25 1145 Strength Comprehensive (MMT) General Manual Muscle Testing (MMT) Assessment no strength deficits identified BLEs -LM [facility] Name 04/06/25 1145 Balance Balance Assessment [...] home at d/c. PT signing off. -LM [facility] Name 04/06/25 1146 Therapy Assessment/Plan (PT) Criteria for Skilled Interventions Met (PT) no;no problems identified which require skilled intervention -LM Therapy Frequency (PT) evaluation only -LM Predicted Duration of Therapy Intervention (PT) Eval Only -LM [facility] Name 04/06/25 1146 Vital Signs Pretreatment Heart Rate (beats/min) 86 -LM Posttreatment Heart Rate (beats/min) 96 -LM Pre SpO2 (%) 95 -LM O2 Delivery Pre Treatment room air -LM Post SpO2 (%) 96 -LM O2 Delivery Post Treatment room air -LM Pre Patient Position Sitting -LM Post Patient Position Sitting -LM [facility] Name 04/06/25 1146 Positioning and Restraints [...] Nurse Physical Therapy Education Title: PT OT GROCERY STORE ASSOCIATE Therapies (Done) Topic: Physical Therapy (Done) Point: Mobility training (Done) Learning Progress Summary Patient Acceptance, E, VU,DU by at 04/06/2025 1147 Point: Precautions (Done) Learning Progress Summary Patient Acceptance, E, VU,DU by at 04/06/2025 1147 User Cabrera Initials Effective Dates Name Provider Type [facility] 01/24/25 - Susan Cavazos, PT Physical Therapist [...] Description Service Date Service Provider Modifiers Qty [phone] PT EVAL LOW COMPLEXITY 3 04/06/2025 Susan [...] mg Daily 04/05/2025 -- Route: Oral heparin 05571 units/250 mL (100 units/mL) in 0.45 % [...] 22 [facility] [address], [address] [facility], [address] Please schedule at [phone] VONDA Garcia 04/11/25 08:32 EDT Cosigned by Sushil Dean Jr., MD at 04/19/2025 10:33 AM EDT Associated attestation - Sushil Dean Jr., MD - 04/19/2025 10:33 AM EDT I have reviewed this documentation and agree. * Rosario Hill APRN - 04/10/2025 1:24 PM EDT Images from the original note were not included. [facility] Medicine Services PROGRESS NOTE Patient [...] Date/Time Wound Culture - Swab, Leg, Right [[id number]] (Abnormal) (Susceptibility) Collected: 04/07/252106 Lab Status: Final [...] mg Daily 04/05/2025 -- Route: Oral heparin 61203 units/250 mL (100 units/mL) in 0.45 % [...] 22 [facility] [address] [facility], [address] [facility], [address] Please schedule at [phone] VONDA Garcia 04/10/25 09:01 EDT Cosigned by Sushil Dean Jr., MD at 04/19/2025 10:33 AM EDT Associated attestation - Sushil Dean Jr., MD - 04/19/2025 10:33 AM EDT I have reviewed this documentation and agree. * Carlton Mead MD - 04/10/2025 7:38 AM EDT Images from the original note were not included. INFECTIOUS DISEASE Progress Note Won Dennis 1980 [id number] Date of Consult: 04/10/2025 Admission Date: 04/04/2025 [...] IRRIGATION; Surgeon: Sushil Dean Jr., MD; Location: [place] OR; Service: Orthopedics; Laterality: Right; PLACEMENT OF WOUND VAC Right 04/07/2025 Procedure: WOUND VACUUM ASSISTED CLOSURE; Surgeon: Sushil Dean Jr., MD; Location: [facility] OR; Service: Orthopedics; Laterality: Right; WOUND CLOSURE [...] Jr., MD, 20 mg at 04/09/25906 heparin 51543 units/250 mL (100 units/mL) in 0.45 % [...] Units Date/Time FL C Arm During Surgery [[id number]] Resulted: 04/07/252137 Updated: 04/07/252137 Narrative: This procedure was auto-finalized with no dictation required. MRI Tibia Fibula Right With & Without Contrast [[id number]] Collected: 04/07/25937 Updated: 04/07/25 100 Narrative: MRI [...] Buenrostro 04/07/2025 9:58 AM EDT Workstation ID: [id number] Impression: Recurrent Right BKA stump abscess/cellulitis- this [...] from the original note were not included. [facility] Medicine Services PROGRESS NOTE Patient [...] Date/Time Wound Culture - Swab, Leg, Right [[id number]] (Abnormal) Collected: 04/07/252106 Lab Status: Preliminary result [...] -- Admin Instructions: Open Order & Select [facility] Electrolyte Replacement Protocol Algorithm to [...] mg Daily 04/05/2025 -- Route: Oral heparin 00058 units/250 mL (100 units/mL) in 0.45 % [...] -- Admin Instructions: Open Order & Select [facility] Electrolyte Replacement Protocol Algorithm to [...] radiographs [facility] [address] [facility], [address] [facility], [address] Please schedule at [phone] VONDA Garcia 04/09/25 09:18 EDT Cosigned by Sushil Dean Jr., MD at 04/19/2025 10:33 AM EDT Associated attestation - Sushil Dean Jr., MD - 04/19/2025 10:33 AM EDT I have reviewed this documentation and agree. * Carlton Mead MD - 04/09/2025 8:25 AM EDT Images from the original note were not included. INFECTIOUS DISEASE Progress Note Won Dennis 1980 [id number] Date of Consult: 04/09/2025 Admission Date: 04/04/2025 [...] IRRIGATION; Surgeon: Sushil Dean Jr., MD; Location: [facility]; Service: Orthopedics; Laterality: Right; PLACEMENT OF [...] MD, 20 mg at 04/08/25 0800 heparin 72225 units/250 mL (100 units/mL) in 0.45 % [...] Units Date/Time FL C Arm During Surgery [[id number]] Resulted: 04/07/252137 Updated: 04/07/252137 Narrative: This procedure was auto-finalized with no dictation required. MRI Tibia Fibula Right With & Without Contrast [[id number]] Collected: 04/07/25 0938 Updated: 04/07/25 1001 Narrative: [...] Chitra 04/07/2025 9:58 AM EDT Workstation ID: [id number] Impression: Recurrent Right BKA stump abscess/cellulitis- this [...] his complex situation in detail with Dr. eDan today. I discussed his complex situation and [...] from the original note were not included. [facility] Medicine Services PROGRESS NOTE Patient [...] Buenrostro 04/07/2025 9:58 AM EDT Workstation ID: [id number] I have personally reviewed the therapy plans: [...] -- Admin Instructions: Open Order & Select [facility] Electrolyte Replacement Protocol Algorithm to [...] mg Daily 04/05/2025 -- Route: Oral heparin 13003 units/250 mL (100 units/mL) in 0.45 % [...] reviewed this documentation and agree. * Carlton Maed MD - 04/08/2025 7:37 AM EDT Images from the original note were not included. INFECTIOUS DISEASE Progress Note Won Dennis 1980 [id number] Date of Consult: 04/08/2025 Admission Date: 04/04/2025 [...] Oral, Q6H PRN, 500 mg at 04/06/25 4264 OR acetaminophen (TYLENOL) 160 MG/5ML oral solution [...] Jr., MD, 20 mg at 04/07/25950 heparin 99177 units/250 mL (100 units/mL) in 0.45 % [...] vancomycin 2750 mg/500 mL 0.9% NS IVPB ([facility]) Ordering Provider: Mario Crowley, DO [...] Units Date/Time FL C Arm During Surgery [[id number]] Resulted: 04/07/252137 Updated: 04/07/252137 Narrative: This procedure was auto-finalized with no dictation required. 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 (Treated by ID in [place] Dr. Harris). Dr. Torres treated him with [...] from the original note were not included. [facility] Medicine Services PROGRESS NOTE Patient [...] Buenrostro 04/07/2025 9:58 AM EDT Workstation ID: [id number] I have personally reviewed the therapy plans: [...] INFECTIOUS DISEASE Progress Note Won Dennis 1980 [id number] Date of Consult: 04/07/2025 Admission Date: 04/04/2025 [...] MD, 20 mg at 04/06/25 0900 heparin 59352 units/250 mL (100 units/mL) in 0.45 % [...] With & Without Contrast - In process [[id number]] Resulted: 04/07/25828 Updated: 04/07/25828 This result has not been signed. Information might be incomplete. 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 (Treated by ID in [place] Dr. Harris). Dr. Torres treated him with [...] -- Admin Instructions: Open Order & Select [facility] Electrolyte Replacement Protocol Algorithm to [...] mg Daily 04/05/2025 -- Route: Oral heparin 11999 units/250 mL (100 units/mL) in 0.45 % [...] -- Admin Instructions: Open Order & Select [facility] Electrolyte Replacement Protocol Algorithm to [...] from the original note were not included. [facility] Medicine Services PROGRESS NOTE Patient [...] MD 04/04/2025 11:00 PM EDT Workstation ID: [id number] I have personally reviewed the therapy plans: [...] mg Daily 04/05/2025 -- Route: Oral heparin 23955 units/250 mL (100 units/mL) in 0.45 % [...] -- Admin Instructions: Open Order & Select [facility] Electrolyte Replacement Protocol Algorithm to [...] -- Admin Instructions: Open Order & Select [facility] Electrolyte Replacement Protocol Algorithm to [...] INFECTIOUS DISEASE follow up. Won Dennis 1980 [id number] Date of Consult: 04/06/2025 Admission Date: 04/04/2025 [...] mL IVPB, 8 mg/kg (Adjusted), Intravenous, Q24H, Cralton Mead MD, Last Rate: 100 mL/hr at 04/06/25 1059, 800 mg at 04/06/25 1059 ferrous sulfate tablet 325 mg, 325 mg, Oral, BID, Leonora Shepherd MD, 325 mg at 04/06/25 0859 furosemide (LASIX) tablet 20 mg, 20 mg, Oral, Daily, Leonora Shepherd MD, 20 mg at 04/06/25 0900 heparin 26099 units/250 mL (100 units/mL) in 0.45 % [...] Tibia Fibula Right With & Without Contrast [[id number]] Collected: 04/04/252256 Updated: 04/04/252302 Narrative: MRI TIBIA [...] represent a small area of phlegmonous change ([id number] image 10) measuring approximately 1.6 cm which [...] MD 04/04/2025 11:00 PM EDT Workstation ID: [id number] Impression: Right BKA stump cellulitis- s/p BKA with multiple surgical 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 (Treated by ID in [place] Dr. Harris). Dr. Torres treated him with [...] from the original note were not included. [facility] Medicine Services PROGRESS NOTE Patient [...] MD 04/04/2025 11:00 PM EDT Workstation ID: [id number] I have personally reviewed the therapy plans: [...] from the original note were not included. [facility] Medicine Services HISTORY AND PHYSICAL [...] MD 04/04/2025 11:00 PM EDT Workstation ID: [id number] Assessment & Plan Assessment & Plan Won [...] 4FR PICC placed by Rhoda Bonner RN [facility], tip verified by 3CG see LDA. * Sushil Dean Jr., MD - 04/05/2025 8:07 AM EDTAssociated Order(s): IP CONSULT TO ORTHOPEDIC SURGERY [facility], [place] [address] [address] Orthopedic Consult Patient: Won Dennis Date of [...] was evaluated in the emergency department in [place], was discharged with instructions for follow-up. He [...] tablet by mouth Daily. 04/03/2025 Morning Lactobacillus-Inulin ([facility]) capsule Take 200 mg by [...] MD 04/04/2025 11:00 PM EDT Workstation ID: [id number] Assessment: Right BKA infection 44-year-old male with [...] DISEASE CONSULT/INITIAL HOSPITAL VISIT Won Dennis 1980 [id number] Date of Consult: 04/05/2025 Admission Date: 04/04/2025 [...] Leonora Shepherd MD, 40 mg at 04/04/25 0562 sennosides-docusate (PERICOLACE) 8.6-50 MG per tablet 2 [...] MD, 20 mg at 04/05/25 09 heparin 26431 units/250 mL (100 units/mL) in 0.45 % [...] Leonora Shepherd MD, 10 mg at 04/04/25 2740 Pharmacy to Dose Heparin, , Not Applicable, [...] Tibia Fibula Right With & Without Contrast [[id number]] Collected: 04/04/252256 Updated: 04/04/252302 Narrative: MRI TIBIA [...] represent a small area of phlegmonous change (hqszqo70 image 10) measuring approximately 1.6 cm which [...] MD 04/04/2025 11:00 PM EDT Workstation ID: [id number] Impression: Right BKA stump cellulitis- s/p BKA with multiple surgical interventions 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 (Treated by ID in [place] Dr. Harris). Dr. Torres treated him with [...] Jr., MD - 04/08/2025 3:51 PM EDT [facility] OPERATIVE REPORT PATIENT NAME: Won Dennis DATE OF : 1980 PREOP DIAGNOSIS: Right Right below-knee amputation infection POSTOP DIAGNOSIS: Same. PROCEDURE: Right Right 55543: Secondary closure below-knee amputation SURGEON: Sushil eDan MD OPERATIVE TEAM: Autoglazier: Susi Grullon RN Scrub Person: Mary Paredes Scrub Person Extra: Hortencia Toribio Other: Katt Gotti RN; Charis Neville RN ANESTHETIST: Anesthesiologist: Ulises Hoffman MD SURGICAL INSTRUMENT TECHNICIAN: Stan Casillas CRNA Student Nurse Salad Bar Clerk: Karol Albert SRNA ANESTHESIA: Choice ESTIMATED BLOOD [...] CULTURE (Canceled) Sushil Dean Jr., MD 04/08/25 9523 Description: RIGHT LEG DEEP WOUND FOR CULTURE [...] PM EDT [facility], [place] [address] OPERATIVE REPORT PATIENT NAME: Won Dennis DATE OF : 1980 PREOP DIAGNOSIS: Right Right below knee amputation stump infection POSTOP DIAGNOSIS: Same. PROCEDURE: Right Right 42456: Incision and drainage of surgical site infection 20867: Debridement of skin, subcutaneous tissue, muscle 29258: Wound vacuum-assisted closure SURGEON: Sushil Dean MD OPERATIVE TEAM: Autoglazier: Anum Sanchez RN Scrub Person: Hortencia Toirbio; Gerald Ivey TELEGRAPHER AGENT: Anesthesiologist: Luci Alonso DO ANESTHESIA: General ESTIMATED [...] this chart in the absence of a lithoplate maker. No orders to display RADIOLOGY: [x] Radiologist's [...] with outpatient infusion at [facility]. He has an appointment with [facility] at 8:00 am tomorrow. They will do [...] with KELLEE and given themhis Medicare number [id number], she sent it to Admission. DEBRA spoke with Kerri, with [facility], and explained that he had Medicare A and B. However, it will not cover home infusion. It will be $64.00 a day out of packet. Patients can go to the Infusion center at [facility], and it will cover the cost as an outpatient. He will need to go there every day for infusion. They will be able to do the patients' PICC line dressing changes and lab work. DEBRA called [facility] Outpatient infusion center they can accept patient and start him. He is known for their facility. The Facility will need to run it through his insurance first. CM faxed the orders over to [facility] at [phone]. CM will follow up with them tomorrow at [facility] to make sure they received the orders. [...] 2:51 PM EDT Continued Stay Note [facility] Patient Name: Won Dennis Today's Date: 04/09/2025 Admit Date: 04/04/2025 Plan: Home Discharge Plan Row Name 04/09/25 1311 Plan Plan Home Patient/Family in Agreement with Plan yes Plan Comments CM spoke with patient at bedside today. Wheelchair from [employer] is at bedside. Patient getting PICC line [...] were not included. Discharge Planning Assessment [facility] Patient Name: Won Dennis Today's Date: 04/07/2025 [...] family Patient/Family Anticipated Services at Transition manager rn casefamily services manager Anticipated family or friend will provide Discharge Needs Assessment Equipment Currently Used at Home glucometer;shower chair;pulse ox;bp cuff;prosthesis;crutches Equipment Needed After Discharge none Discharge Plan Row Name 04/07/25 1144 Plan Plan Home Patient/Family in Agreement with Plan yes Plan Comments CM spoke with patient at bedside today. Patient lives with and his [address] [facility]. 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 He has walker, cane, shower chair, and crutches. He requested a wheelchair for home. CM [facility]. He is not current with home [...] 3:4 0 PM EDT Right BKA infection [place] SEC ABDOMINAL WALL SUTURE EVISCERATION/DEHSN 04/08/2025 3:20 [...] CBC Auto Differential (04/11/2025 3:40 AM EDT) [facility] WBC 7.87 3.40 - 10.80 10*3/mm3 04/11/2025 4:02 AM EDT [facility] RBC 4.70 4.14 - 5.80 10*6/mm3 04/11/2025 4:02 AM [facility] Hemoglobin 12.8(L) 13.0 - 17.7 g/dL 04/11/2025 4:02 AM [facility] Hematocrit 40.5 37.5 - 51.0 % 04/11/2025 4:02 AM [facility] MCV 86.2 79.0 - 97.0 fL 04/11/2025 4:02 AM [facility] MCH 27.2 26.6 - 33.0 pg 04/11/2025 4:02 AM [facility] MCHC 31.6 31.5 - 35.7 g/dL 04/11/2025 4:02 AM [facility] RDW 12.9 12.3 - 15.4 % 04/11/2025 4:02 AM [facility] RDW-SD 40.5 37.0 - 54.0 fl 04/11/2025 4:02 AM [facility] MPV 9.2 6.0 - 12.0 fL 04/11/2025 4:02 AM [facility] Platelets 267 140 - 450 10*3/mm3 04/11/2025 4:02 AM [facility] Neutrophil % 59.5 42.7 - 76.0 % 04/11/2025 4:02 AM [facility] Lymphocyte % 26.3 19.6 - 45.3 % 04/11/2025 4:02 AM [facility] Monocyte % 9.3 5.0 - 12.0 % 04/11/2025 4:02 AM [facility] Eosinophil % 4.1 0.3 - 6.2 % 04/11/2025 4:02 AM [facility] Basophil % 0.4 0.0 - 1.5 % 04/11/2025 4:02 [facility] Immature Grans % 0.4 0.0 - 0.5 % 04/11/2025 4:02 AM EDT [facility] Result [facility]
[address] [place] [address], * (ABNORMAL) Comprehensive Metabolic Panel (04/11/2025 3:40 AM EDT) Glucose 108(H) 65 - 99 mg/dL 04/11/2025 4:19 AM EDT [facility] BUN 12.5 6.0 - 20.0 mg/dL 04/11/2025 4:19 AM EDT [facility] Creatinine 0.68(L) 0.76 - 1.27 mg/dL 04/11/2025 4:19 AM [facility] Sodium 140 136 - 145 mmol/L 04/11/2025 4:19 AM [facility] Potassium 3.8 3.5 - 5.2 mmol/L 04/11/2025 4:19 AM [facility] Chloride 105 98 - 107 mmol/L 04/11/2025 4:19 AM [facility] CO2 28.2 22.0 - 29.0 mmol/L 04/11/2025 4:19 AM [facility] Calcium 8.2(L) 8.6 - 10.5 mg/dL 04/11/2025 4:19 AM [facility] Total Protein 6.1 6.0 - 8.5 g/dL 04/11/2025 4:19 AM [facility] Albumin 3.1(L) 3.5 - 5.2 g/dL 04/11/2025 4:19 AM [facility] ALT (SGPT) 52(H) 1 - 41 U/L 04/11/2025 4:19 AM [facility] AST (SGOT) 40 1 - 40 U/L 04/11/2025 4:19 AM [facility] Alkaline Phosphatase 99 39 - 117 U/L 04/11/2025 4:19 AM [facility] Total Bilirubin 0.2 0.0 - 1.2 mg/dL 04/11/2025 4:19 AM [facility] Globulin 3.0 gm/dL 04/11/2025 4:19 AM [facility] Comment:Calculated Result A/G Ratio 1.0 g/dL 04/11/2025 4:19 AM [facility] BUN/Creatinine Ratio 18.4 7.0 - 25.0 04/11/2025 4:19 AM [facility] Anion Gap 6.8 5.0 - 15.0 mmol/L 04/11/2025 4:19 AM [facility] eGFR 117.5 >60.0 mL/min/1.7 3 04/11/2025 4:19 AM EDT [facility] Blood Venipuncture / Unknown 04/11/2025 3:40 AM EDT 04/11/2025 3:56 AM EDT [facility] - 04/11/2025 4:19 AM EDT [...] Hill APRN LAB BLOOD ORDERABLES Final Result [facility]
[address] [place] [address], * (ABNORMAL) CBC Auto Differential (04/10/2025 3:46 [...] pg 04/10/2025 3:56 [facility] MCHC 32.2 31.5 - 35.7 g/dL 04/10/2025 3:56 AM EDT [facility] RDW 12.9 12.3 - 15.4 % 04/10/2025 3:56 AM [facility] RDW-SD 40.5 37.0 - 54.0 fl 04/10/2025 3:56 AM EDT [facility] MPV 9.5 6.0 - 12.0 fL 04/10/2025 3:56 AM EDT [facility] Platelets 227 140 - 450 10*3/mm3 04/10/2025 3:56 AM [facility] Neutrophil % 59.1 42.7 - 76.0 % 04/10/2025 3:56 AM [facility] Lymphocyte % 29.0 19.6 - 45.3 % 04/10/2025 3:56 AM [facility] Monocyte % 8.1 5.0 - 12.0 % 04/10/2025 3:56 AM [facility] Eosinophil % 3.2 0.3 - 6.2 % 04/10/2025 3:56 AM [facility] Basophil % 0.4 0.0 - 1.5 % 04/10/2025 3:56 AM [facility] Immature Grans % 0.2 0.0 - 0.5 % 04/10/2025 3:56 AM [facility] Neutrophils, Absolute 5.67 1.70 - 7.00 10*3/mm3 04/10/2025 3:56 AM [facility] Lymphocytes, Absolute 2.78 0.70 - 3.10 10*3/mm3 04/10/2025 3:56 AM [facility] Monocytes, Absolute 0.78 0.10 - 0.90 10*3/mm3 04/10/2025 3:56 AM [facility] Eosinophils, Absolute 0.31 0.00 - 0.40 10*3/mm3 04/10/2025 3:56 AM EDT [facility] Basophils, Absolute 0.04 [...] t [facility]
[address] [place] [address], * (ABNORMAL) Basic Metabolic Panel (04/10/2025 3:46 [...] t [facility]
[address] [place] [address], * Heparin Anti-Xa (04/10/2025 3:46 AM EDT) Heparin Anti-Xa (UFH) 0.35 0.30 - 0.70 IU/ml 04/10/2025 4:23 AM EDT [facility] Blood Venipuncture / Unknown 04/10/2025 3:46 AM EDT 04/10/2025 3:53 AM EDT Larisa Hamilton [facility] LAB BLOOD ORDERABLES Final R esult [facility]
[address] [place] [address], * Heparin Anti-Xa (04/09/2025 10:05 AM EDT) Pathologist [facility] Heparin Anti-Xa (UFH) 0.36 0.30 - 0.70 IU/ml 04/09/2025 11:12 AM EDT [facility] Blood Venipuncture / Unknown 04/09/2025 10:05 AM EDT 04/09/2025 10:47 AM EDT Larisa Hamilton [facility] LAB BLOOD ORDERABLES Final R esult [facility]
[address] [place] [address], * (ABNORMAL) CBC Auto Differential (04/09/2025 4:18 AM EDT) Pathologist [facility] WBC 11.00(H) 3.40 - 10.80 10*3/mm3 04/09/2025 [...] 12.3 - 15.4 % 04/09/2025 4:50 AM [facility] RDW-SD 39.9 37.0 - 54.0 fl 04/09/2025 4:50 AM [facility] MPV 10.0 6.0 - 12.0 fL 04/09/2025 4:50 AM [facility] Platelets 211 140 - 450 10*3/mm3 04/09/2025 4:50 AM [facility] Neutrophil % 74.8 42.7 - 76.0 % 04/09/2025 4:50 AM [facility] Lymphocyte % 15.4(L) 19.6 - 45.3 % 04/09/2025 4:50 AM [facility] Monocyte % 8.5 5.0 - 12.0 % 04/09/2025 4:50 AM [facility] Eosinophil % 0.6 0.3 - 6.2 % 04/09/2025 4:50 AM [facility] Basophil % 0.4 0.0 - 1.5 % 04/09/2025 4:50 AM [facility] Immature Grans % 0.3 0.0 - 0.5 % 04/09/2025 4:50 AM [facility] Neutrophils, Absolute 8.23(H) 1.70 - 7.00 10*3/mm3 04/09/2025 4:50 AM [facility] Lymphocytes, Absolute 1.69 0.70 - 3.10 10*3/mm3 04/09/2025 4:50 AM [facility] Monocytes, Absolute 0.94(H) 0.10 - 0.90 10*3/mm3 04/09/2025 4:50 AM [facility] Eosinophils, Absolute 0.07 0.00 - 0.40 10*3/mm3 04/09/2025 4:50 AM [facility] Basophils, Absolute 0.04 0.00 - 0.20 10*3/mm3 04/09/2025 4:50 AM EDT [facility] [...] nal Result Performing Organization Address City/[facility]/ZIP Co de Phone Number [facility]
[address] [place] [address], * Heparin Anti-Xa (04/09/2025 4:18 AM EDT) Heparin Anti-Xa (UFH) 0.41 0.30 - 0.70 IU/ml 04/09/2025 4:53 AM EDT [facility] Blood Venipuncture / Unknown 04/09/2025 4:18 AM EDT 04/09/2025 4:31 AM EDT Una LundbergD LAB BLOOD ORDERABLES Final R esult [facility]
[address] [place] [address], * (ABNORMAL) Basic Metabolic Panel (04/09/2025 4:18 [...] 04/09/2025 4:29 AM EDT [facility] - 04/09/2025 5:33 AM EDT [...] [facility]
[address] [place] [address], * Wound Culture - Swab, Leg, Right (04/08/2025 3:40 PM EDT) Wound Culture No growth at 3 days ALIZA 04/11/2025 10:40 AM EDT [facility] Gram Stain Few (2+) [...] Final Result Performing Organization Address City/[facility]/ZIP Co de Phone Number [facility]
[address] [place] [address], [facility]
[address] [place] [address], * Anaerobic Culture - Swab, Leg, Right (04/08/2025 3:40 PM EDT) Anaerobic Culture No anaerobes isolated at 5 days ALIZA 04/13/2025 7:24 AM EDT [facility] Swab Structure of right lower limb / Unknown 04/08/2025 3:40 PM EDT 04/08/2025 8:05 PM EDT us Sushil Dean Jr., MD MICROBIOLOGY - GENERAL ORDERABLES Final Result Performing Organization Address City/[facility]/ZIP Co de Phone Number [facility]
[address] [place] [address], * Scan Slide (04/08/2025 8:41 AM EDT) [...] esult [facility]
[address] [place] [address], * (ABNORMAL) CBC Auto Differential (04/08/2025 8:41 [...] 37.0 - 54.0 fl 04/08/2025 11:02 AM [facility] MPV 11.0 6.0 - 12.0 fL 04/08/2025 11:02 AM [facility] Platelets 118(L) 140 - 450 10*3/mm3 04/08/2025 11:02 AM [facility] Neutrophil % 85.1(H) 42.7 - 76.0 % 04/08/2025 11:02 AM [facility] Lymphocyte % 9.3(L) 19.6 - 45.3 % 04/08/2025 11:02 AM [facility] Monocyte % 4.6(L) 5.0 - 12.0 % 04/08/2025 11:02 AM [facility] Eosinophil % 0.3 0.3 - 6.2 % 04/08/2025 11:02 AM [facility] Basophil % 0.2 0.0 - 1.5 % 04/08/2025 11:02 AM [facility] Immature Grans % 0.5 0.0 - 0.5 % 04/08/2025 11:02 AM [facility] Neutrophils, Absolute 8.57(H) 1.70 - 7.00 10*3/mm3 04/08/2025 11:02 AM [facility] Lymphocytes, Absolute 0.94 0.70 - 3.10 10*3/mm3 04/08/2025 11:02 AM [facility] Monocytes, Absolute 0.46 0.10 - 0.90 10*3/mm3 04/08/2025 11:02 AM [facility] Eosinophils, Absolute 0.03 0.00 - 0.40 10*3/mm3 04/08/2025 11:02 AM [facility] Basophils, Absolute 0.02 0.00 - 0.20 10*3/mm3 04/08/2025 11:02 AM [facility] Immature Grans, Absolute 0.05 0.00 [...] [facility]
[address] [place] [address], * (ABNORMAL) Basic Metabolic Panel (04/08/2025 8:41 [...] nal Result Performing Organization Address City/[facility]/ZIP Co de Phone Number [facility]
[address] [place] [address], * Heparin Anti-Xa (04/08/2025 8:41 AM EDT) Heparin Anti-Xa (UFH) 0.33 0.30 - 0.70 IU/ml 04/08/2025 9:40 AM EDT [facility] Blood Venipuncture / Unknown 04/08/2025 8:41 AM EDT 04/08/2025 9:10 AM EDT Sushil Dean Jr., MD LAB BLOOD ORDERABLES Fi nal Result Performing Organization Address City/[facility]/ZIP Co de Phone Number [facility]
[address] [place] [address], * FL C Arm During Surgery (04/07/2025 9:32 PM EDT) Narrative SYSTEMGENERATED, DOCUMENTATION - 04/07/2025 9:38 PM EDT This procedure was auto-finalized with no dictation required. us Sushil Dean Jr., MD IMG FLUOROSCOPY ORDERAB LES Final Result * Wound Culture - Swab, Leg, Right (04/07/2025 9:14 PM EDT) Wound Culture No growth at 3 days ALIZA 04/11/2025 10:40 AM EDT [facility] Gram Stain Occasional WBCs [...] Final Result Performing Organization Address City/[facility]/ZIP Co de Phone Number [facility]
[address] [place] [address], [place] [phone] [facility]
[address] [place] [address], [place] [phone] * Anaerobic Culture - Swab, Leg, Right (04/07/2025 9:14 PM EDT) Anaerobic Culture No anaerobes isolated at 5 days ALIZA 04/13/2025 7:21 AM EDT [facility] Swab Structure of right lower limb / Unknown Collection / Unknown 04/07/2025 9:14 PM EDT 04/08/2025 4:36 AM EDT us Sushil Dean Jr., MD MICROBIOLOGY - GENERAL ORDERABLES Final Result [facility]
[address] [place] [address], * Anaerobic Culture - Tissue, Leg (04/07/2025 9:13 PM EDT) Anaerobic Culture No anaerobes isolated at 5 days ALIZA 04/13/2025 7:21 AM EDT [facility] Tissue Lower limb structure / Unknown Collection / Unknown 04/07/2025 9:13 PM EDT 04/08/2025 4:54 AM EDT Jason Álvarez DO MICROBIOLOGY - GENERAL ORDERABLE S Final Result Performing Organization Address [facility]/State/ZIP Co de Phone Number [facility]
[address] [place] [address], * Tissue / Bone Culture - Tissue, Leg, Right (04/07/2025 9:13 PM EDT) Tissue Culture No growth at 3 days ALIZA 04/11/2025 10:36 AM EDT [facility] Gram Stain Rare (1+) WBCs seen 04/11/2025 10:36 AM EDT [facility] Gram Stain No organisms seen 04/11/2025 10:36 AM EDT [facility] Tissue Structure of right lower limb / Unknown 04/07/2025 9:13 PM EDT 04/08/2025 4:54 AM EDT Sushil Dean Jr., MD MICROBIOLOGY - GENERAL ORDERABLES Final Result [facility]
[address] [place] [address], [facility]
[address] [place] [address], [place] [phone] * (ABNORMAL) Wound Culture - Swab, Leg, Right (04/07/2025 9:07 PM EDT) Wound Culture Light growth (2+) Staphylococcus aureus, MRSA(A) ALIZA 04/10/2025 10:38 AM EDT [facility] Comment: Methicillin resistant Staphylococcus [...] MD MICROBIOLOGY - GENERAL ORDERABLES Final Result [facility]
[address] [place] [address], [place] [phone] [facility]
[address] [place] [address], [place] [phone] * Anaerobic Culture - Swab, Leg, Right (04/07/2025 9:07 PM EDT) Anaerobic Culture No anaerobes isolated at 5 days ALIZA 04/13/2025 7:21 AM EDT [facility] Swab Structure of right lower limb / Unknown Collection / Unknown 04/07/2025 9:07 PM EDT 04/08/2025 4:36 AM EDT us Sushil Dean Jr., MD MICROBIOLOGY - GENERAL ORDERABLES Final Result [facility]
[address] [place] [address], * Heparin Anti-Xa (04/07/2025 9:10 AM EDT) Pathologist [facility] Heparin Anti-Xa (UFH) 0.30 0.30 - 0.70 IU/ml 04/07/2025 10:12 AM EDT [facility] Blood Venipuncture / Unknown 04/07/2025 9:10 AM EDT 04/07/2025 9:38 AM EDT Una Perla PharmD LAB BLOOD ORDERABLES Final R esult Performing Organization Address City/[facility]/ZIP Co de Phone Number [facility]
[address] [place] [address], * (ABNORMAL) CBC Auto Differential (04/07/2025 9:10 [...] 12.3 - 15.4 % 04/07/2025 9:50 AM [facility] RDW-SD 39.9 37.0 - 54.0 fl 04/07/2025 9:50 AM [facility] MPV 10.8 6.0 - 12.0 fL 04/07/2025 9:50 AM [facility] Platelets 149 140 - 450 10*3/mm3 04/07/2025 9:50 AM [facility] Neutrophil % 66.7 42.7 - 76.0 % 04/07/2025 9:50 AM [facility] Lymphocyte % 20.5 19.6 - 45.3 % 04/07/2025 9:50 AM [facility] Monocyte % 9.8 5.0 - 12.0 % 04/07/2025 9:50 AM [facility] Eosinophil % 2.1 0.3 - 6.2 % 04/07/2025 9:50 AM [facility] Basophil % 0.3 0.0 - 1.5 % 04/07/2025 9:50 AM [facility] Immature Grans % 0.6(H) 0.0 - 0.5 % 04/07/2025 9:50 AM [facility] Neutrophils, Absolute 5.75 1.70 - 7.00 10*3/mm3 04/07/2025 9:50 AM [facility] Lymphocytes, Absolute 1.77 0.70 - 3.10 10*3/mm3 04/07/2025 9:50 AM [facility] Monocytes, Absolute 0.85 0.10 - 0.90 10*3/mm3 04/07/2025 9:50 AM [facility] Eosinophils, Absolute 0.18 0.00 - 0.40 10*3/mm3 04/07/2025 9:50 AM [facility] Basophils, Absolute 0.03 0.00 - 0.20 10*3/mm3 04/07/2025 9:50 AM [facility] Immature Grans, Absolute 0.05 0.00 [...] t [facility]
[address] [place] [address], * (ABNORMAL) Basic Metabolic Panel (04/07/2025 9:10 [...] t [facility]
[address] [place] [address], * MRI Tibia Fibula Right With & [...] [place] 04/07/2025 9:58 AM EDT Workstation ID: [id number] Narrative 04/07/2025 9:58 AM EDT MRI TIBIA [...] [place] 04/07/2025 9:58 AM EDT Workstation ID: [id number] Sushil Dean Jr., MD IMG MRI ORDERABLES Mary Beth l Result * Heparin Anti-Xa (04/07/2025 1:42 AM EDT) [facility] Heparin Anti-Xa (UFH) 0.38 0.30 - 0.70 IU/ml 04/07/2025 2:14 AM EDT [facility] Blood Venipuncture / Unknown 04/07/2025 1:42 AM EDT 04/07/2025 1:54 AM EDT Chelsie Turpin [facility] LAB BLOOD ORDERABLES Final R esult [facility]
[address] [place] [address], * Heparin Anti-Xa (04/06/2025 7:16 PM EDT) [facility] Heparin Anti-Xa (UFH) 0.33 0.30 - 0.70 IU/ml 04/06/2025 7:50 PM EDT [facility] Blood Venipuncture / Unknown 04/06/2025 7:16 PM EDT 04/06/2025 7:35 PM EDT Cherri Beatty [facility] LAB BLOOD ORDERABLES Final Res ult Performing Organization Address [facility] Co de Phone Number [facility]
[address] [place] [address], * Potassium (04/06/2025 7:16 PM EDT) [facility] Potassium 4.0 3.5 - 5.2 mmol/L 04/06/2025 7:53 PM EDT [facility] Blood Venipuncture / Unknown 04/06/2025 7:16 PM EDT 04/06/2025 7:35 PM EDT Jason Álvarez DO LAB BLOOD ORDERABLES Final Resul t Performing Organization Address [facility] de Phone Number [facility]
[address] [place] [address], * (ABNORMAL) Heparin Anti-Xa (04/06/2025 12:36 PM EDT) [facility] Heparin Anti-Xa (UFH) 0.24(L) 0.30 - 0.70 IU/ml 04/06/2025 1:23 PM EDT [facility] Blood Venipuncture / Unknown 04/06/2025 12:36 PM EDT 04/06/2025 1:07 PM EDT Una Perla PharmD LAB BLOOD ORDERABLES Final R esult Performing Organization Address [facility] Co de Phone Number [facility]
[address] [place] [address], * (ABNORMAL) Heparin Anti-Xa (04/06/2025 3:42 AM EDT) [facility] Heparin Anti-Xa (UFH) 0.25(L) 0.30 - 0.70 IU/ml 04/06/2025 5:30 AM EDT [facility] Blood Venipuncture / Unknown 04/06/2025 3:42 AM EDT 04/06/2025 4:59 AM EDT Chelsie Dyana [facility] LAB BLOOD ORDERABLES Final R esult [facility]
[address] [place] [address], * (ABNORMAL) Basic Metabolic Panel (04/06/2025 3:42 AM EDT) [facility] Glucose 94 65 - 99 mg/dL [...] 04/06/2025 5:20 AM EDT [facility] - 04/06/2025 5:59 AM EDT [...] t [facility]
[address] [place] [address], * (ABNORMAL) CBC Auto Differential (04/06/2025 3:41 [...] fL 04/06/2025 5:04 AM [facility] MCH 27.4 26.6 - 33.0 pg 04/06/2025 5:04 AM [facility] MCHC 31.8 31.5 - 35.7 g/dL 04/06/2025 5:04 AM [facility] RDW 12.8 12.3 - 15.4 % 04/06/2025 5:04 AM [facility] RDW-SD 40.0 37.0 - 54.0 fl 04/06/2025 5:04 AM [facility] MPV 11.7 6.0 - 12.0 fL 04/06/2025 5:04 AM [facility] Platelets 115(L) 140 - 450 10*3/mm3 04/06/2025 5:04 AM [facility] Neutrophil % 65.3 42.7 - 76.0 % 04/06/2025 5:04 AM [facility] Lymphocyte % 20.5 19.6 - 45.3 % 04/06/2025 5:04 AM [facility] Monocyte % 11.8 5.0 - 12.0 % 04/06/2025 5:04 AM [facility] Eosinophil % 1.8 0.3 - 6.2 % 04/06/2025 5:04 AM [facility] Basophil % 0.3 0.0 - 1.5 % 04/06/2025 5:04 AM [facility] Immature Grans % 0.3 0.0 - 0.5 % 04/06/2025 5:04 AM [facility] Neutrophils, Absolute 7.09(H) 1.70 - 7.00 10*3/mm3 04/06/2025 5:04 AM [facility] Lymphocytes, Absolute 2.23 0.70 - 3.10 10*3/mm3 04/06/2025 5:04 AM [facility] Monocytes, Absolute 1.28(H) 0.10 - 0.90 [...] Resul t Performing Organization Address City/[facility] Co de Phone Number [facility]
[address] [place] [address], [place] [phone] * Heparin Anti-Xa (04/05/2025 8:43 PM EDT) Pathologist [facility] Heparin Anti-Xa (UFH) 0.38 0.30 - 0.70 IU/ml 04/05/2025 9:09 PM EDT [facility] Blood Venipuncture / Unknown 04/05/2025 8:43 PM EDT 04/05/2025 8:55 PM EDT us Cherri Beatty [facility] LAB BLOOD ORDERABLES Final Res ult Performing Organization Address City/[facility] Co de Phone Number [facility]
[address] [place] [address], [place] [phone] * CK (04/05/2025 12:15 PM EDT) Creatine Kinase 140 20 - 200 U/L 04/05/2025 1:31 PM EDT [facility] Blood Venipuncture / Unknown 04/05/2025 12:15 PM EDT 04/05/2025 1:03 PM EDT Carlton Mead MD LAB BLOOD ORDERABLES Final R esult Performing Organization Address City/[facility]/ZIP Co de Phone Number [facility]
[address] [place] [address], * (ABNORMAL) Heparin Anti-Xa (04/05/2025 12:15 PM EDT) [facility] Heparin Anti-Xa (UFH) 0.17(L) 0.30 - 0.70 IU/ml 04/05/2025 1:21 PM EDT [facility] Blood Venipuncture / Unknown 04/05/2025 12:15 PM EDT 04/05/2025 1:04 PM EDT Una Perla PharmD LAB BLOOD ORDERABLES Final R esult Performing Organization Address City/[facility] Co de Phone Number [facility]
[address] [place] [address], * (ABNORMAL) aPTT (04/05/2025 3:54 AM EDT) [facility] PTT 35.3(L) 60.0 - 90.0 seconds [...] 0.5 U/ml are 60 to 70 seconds. [employer] LAB BLOOD ORDERABLES Final R esult [facility]
[address] [place] [address], * Heparin Anti-Xa (04/05/2025 3:54 AM EDT) Pathologist [facility] Heparin Anti-Xa (UFH) 0.30 0.30 - 0.70 IU/ml 04/05/2025 4:32 AM EDT [facility] Blood Venipuncture / Unknown 04/05/2025 3:54 AM EDT 04/05/2025 4:15 AM EDT [employer] LAB BLOOD ORDERABLES Final R esult Performing Organization Address City/[facility]/ZIP Co de Phone Number [facility]
[address] [place] [address], * (ABNORMAL) CBC Auto Differential (04/05/2025 3:54 AM EDT) [facility] WBC 11.18(H) 3.40 - 10.80 10*3/mm3 [...] 31.5 - 35.7 g/dL 04/05/2025 4:20 AM [facility] RDW 12.9 12.3 - 15.4 % 04/05/2025 4:20 AM [facility] RDW-SD 39.7 37.0 - 54.0 fl 04/05/2025 4:20 AM [facility] MPV 10.2 6.0 - 12.0 fL 04/05/2025 4:20 AM [facility] Platelets 160 140 - 450 10*3/mm3 04/05/2025 4:20 AM [facility] Neutrophil % 73.5 42.7 - 76.0 % 04/05/2025 4:20 AM [facility] Lymphocyte % 14.0(L) 19.6 - 45.3 % 04/05/2025 4:20 AM [facility] Monocyte % 11.0 5.0 - 12.0 % 04/05/2025 4:20 AM [facility] Eosinophil % 0.8 0.3 - 6.2 % 04/05/2025 4:20 AM [facility] Basophil % 0.3 0.0 - 1.5 % 04/05/2025 4:20 AM [facility] Immature Grans % 0.4 0.0 - 0.5 % 04/05/2025 4:20 AM [facility] Neutrophils, Absolute 8.23(H) 1.70 - 7.00 10*3/mm3 04/05/2025 4:20 AM [facility] Lymphocytes, Absolute 1.56 0.70 - 3.10 10*3/mm3 04/05/2025 4:20 AM [facility] Monocytes, Absolute 1.23(H) 0.10 - 0.90 10*3/mm3 04/05/2025 4:20 AM [facility] Eosinophils, Absolute 0.09 0.00 - 0.40 10*3/mm3 04/05/2025 4:20 AM [facility] Basophils, Absolute 0.03 0.00 - [...] esult [facility]
[address] [place] [address], * (ABNORMAL) Basic Metabolic Panel (04/05/2025 3:54 [...] 04/05/2025 4:15 AM EDT [facility] - 04/05/2025 4:40 AM EDT [...] sult [facility]
[address] [place] [address], * (ABNORMAL) aPTT (04/05/2025 12:18 AM EDT) PTT 33.6(L) 60.0 - 90.0 seconds 04/05/2025 12:53 AM EDT [facility] Blood Venipuncture / Unknown 04/05/2025 12:18 AM EDT 04/05/2025 12:37 AM EDT [facility] - 04/05/2025 12:53 AM EDT PTT = The equivalent PTT values for the therapeutic range of heparin levels at 0.3 to 0.5 U/ml are 60 to 70 seconds. [facility] LAB BLOOD ORDERABLES Final R esult [facility]
[address] [place] [address], [place] [phone] * (ABNORMAL) Protime-INR (04/05/2025 12:18 AM EDT) Protime 15.9(H) 12.2 - 15.3 Seconds 04/05/2025 12:53 AM EDT [facility] INR 1.19(H) 0.89 - 1.12 04/05/2025 12:53 AM EDT [facility] Blood Venipuncture / Unknown 04/05/2025 12:18 AM EDT 04/05/2025 12:37 AM EDT [facility] LAB BLOOD ORDERABLES Final R esult Performing Organization Address [facility] Co de Phone Number [facility]
[address] [place] [address], [place] [phone] * Heparin Anti-Xa (04/05/2025 12:18 AM EDT) Pathologist [facility] Heparin Anti-Xa ([facility]) 0.39 0.30 - 0.70 IU/ml 04/05/2025 12:54 AM EDT [facility] LABORATORY Blood Venipuncture / Unknown 04/05/2025 12:18 AM EDT 04/05/2025 12:37 AM EDT RADEUM PharmD LAB BLOOD ORDERABLES Final R esult Performing Organization Address City/[facility]/ZIP Co de Phone Number [facility]
[address] [place] [address], [place] [phone] * MRI Tibia Fibula Right With & [...] MD 04/04/2025 11:00 PM EDT Workstation ID: [id number] Narrative 04/04/2025 11:00 PM EDT MRI TIBIA [...] MD 04/04/2025 11:00 PM EDT Workstation ID: [id number] Leonora Shepherd MD IMG MRI ORDERABLES Final Resu lt * POC Creatinine (04/04/2025 2:49 PM EDT) Creatinine 1.10 0.60 - 1.30 mg/dL 04/07/2025 7:14 PM EDT [facility] Comment:Serial Number: [id number] [id number] Venous Blood 04/04/2025 2:49 PM EDT 04/07/2025 7:14 PM EDT Jason Álvarez DO POINT OF CARE TEST ORDERABLES Fi nal Result [facility]
[address] [place] [address], [place] [phone] * (ABNORMAL) CBC Auto Differential (04/04/2025 2:47 PM EDT) [facility] Signature WBC 12.72(H) 3.40 - 10.80 10*3/mm3 [...] Result [facility]
[address] [place] [address], * (ABNORMAL) C-reactive Protein (04/04/2025 2:47 PM EDT) Pathologist [facility] C-Reactive Protein 8.57(H) 0.00 - 0.50 mg/dL 04/04/2025 3:26 PM EDT [facility] Blood Venipuncture / Unknown 04/04/2025 2:47 PM EDT 04/04/2025 2:52 PM EDT Mario Ortiz Keo LAB BLOOD ORDERABLES Fin al Result [facility]
[address] [place] [address], * (ABNORMAL) Sedimentation Rate (04/04/2025 2:47 PM EDT) [facility] Sed Rate 51(H) 0 - 15 mm/hr 04/04/2025 3:06 PM EDT [facility] Blood Venipuncture / Unknown 04/04/2025 2:47 PM EDT 04/04/2025 2:52 PM EDT Mario Ortiz Keo LAB BLOOD ORDERABLES Fin al Result Performing Organization Address City/[facility]/ZIP Co de Phone Number [facility]
[address] [place] [address], * Comprehensive Metabolic Panel (04/04/2025 2:47 PM EDT) [facility] Glucose 90 65 - 99 mg/dL [...] - 10.5 mg/dL 04/04/2025 3:26 PM EDT [facility] Total Protein 7.3 6.0 - 8.5 g/dL 04/04/2025 3:26 PM EDT [facility] Albumin 4.1 3.5 - 5.2 g/dL 04/04/2025 3:26 PM EDT [facility] ALT (SGPT) 26 1 - 41 U/L 04/04/2025 3:26 PM EDT [facility] AST (SGOT) 25 1 - 40 U/L 04/04/2025 3:26 PM EDT [facility] Alkaline Phosphatase 106 39 - 117 U/L 04/04/2025 3:26 PM T [facility] Total Bilirubin 1.0 0.0 - 1.2 mg/dL 04/04/2025 3:26 PM EDT [facility] Globulin 3.2 gm/dL 04/04/2025 3:26 PM T [facility] Comment:Calculated Result A/G Ratio 1.3 g/dL 04/04/2025 3:26 PM EDT [facility] BUN/Creatinine Ratio 19.5 7.0 - 25.0 04/04/2025 3:26 PM T [facility] Anion Gap 10.7 5.0 - 15.0 mmol/L 04/04/2025 3:26 PM T [facility] eGFR 102.5 >60.0 mL/min/1.7 3 04/04/2025 3:26 PM [facility] Blood Venipuncture / Unknown 04/04/2025 2:47 PM EDT 04/04/2025 2:52 PM EDT Narrative [facility] - 04/04/2025 3:26 [...] Result [facility]
[address] [place] [address], documented in this encounter Visit Diagnoses Diagnosis [...] BPA Driven Protocol Open Order & [facility] Electrolyte Replacement Protocol Algorithm to [...] BPA Driven Protocol Open Order & [facility] Electrolyte Replacement Protocol Algorithm to [...] Salazar, KELL)1943 (Given - Provider: Anahy Marcelino, WIRELESS ARCHITECT)2129 (Canceled Entry - Provider: Anahy Marcelino WIRELESS ARCHITECT - Comment: previously given) 0837 (Given [...] medication prescribed for a lower pain scale. ([facility]) If given for pain, use the following [...] Continuous Medication Order 04/09/2025 04/10/2025 04/11/2025 heparin 48208 units/250 mL (100 units/mL) in 0.45 % [...] BPA Driven Protocol Open Order & [facility] Electrolyte Replacement Protocol Algorithm to [...] documented as of this encounter Care Teams Running Instructor Relationship Specialty Start Date End Date Provider, [place] [address] PCP - General 05/09/23 documented as of this encounter
--- OUTSIDE RECORDS SUMMARY | 2025-04-08 14:34 | XMS_ITS | Encounter Summary ---
Author Organization [facility] Address [address] [place] [address] Care Team Providers Care Jelly Filter Tender Name Role Phone Provider, No Known Primary Care Provider Unavail able Reason for Visit * Auth/Cert Specialty Diagnoses / Procedures Referred By Bulmaro muniz Referred To Contact Diagnoses Right BKA infection Referral ID Status Reason Start Date Expiration Date Visits Re quested Visits Authorized [id number] 1 1 Encounter Details Date Type Department Care Team (Late st Contact Info) Description 04/08/2025 3:34 PM EDT Anesthesia Event [facility] OR [address] [place] [address] Ulises Hoffman MD [address] [place] [address] Jairo Brooks MD [address] [place] [address] Anesthesia Record Procedure Summary Procedure Name Responsible [...] Recorded In the past 12 months has [employer], oil, or water [employer] threatened to shut off services in your [...] or training? 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
[2025-05-14 08:23] VITALS: BP 136/67; PULSE 73; RESP 20; TEMP 36.6; O2SAT 96
[2025-05-14] MEDS: DAPTOmycin 1,000 MG in 0.9 % SODIUM CHLORIDE 50 ML 100 MG IV (08:23)
--- OUTSIDE RECORDS SUMMARY | 2025-05-14 08:23 | XMS_ITS | Patient Health Record ---
Author [facility] [address] [facility] [address] [place] [id number] Care Team Providers Care Senior Catering Sales Manager Name Role Phone Zeeshan Salazar Primary [...] W/U Status Risk Notes Problem Essential hypertension (79004448) HTN [Hypertension] (401.9) Active confirmed appears resolved Problem Hypothyroidism (79696686) Hypothyroidism NOS (244.9) Active confirmed Problem Hyperlipidemia (53747230) Hyperlipidemia (272.4) Active confirmed Problem Constipation (17630972) Constipation, unspecified constipation type (K59.00) Active confirmed Problem History of pulmonary embolism on long-term anticoagulation therapy (83032298161714333 ) Hx pulmonary embolism (Z86.711) Active confirmed Problem Long-term current use of anticoagulant (468163362) Current use of termite renewal inspector anticoagulation (Z79.01) Active confirmed Problem Adjustment disorder with anxious mood (15073587) Adjustment disorder with anxious mood (F43.22) Active confirmed Problem History of pulmonary embolus (067816338) History of pulmonary embolus (PE) (Z86.711) Active confirmed Problem Methicillin resistant Staphylococcus aureus infection (disorder) (086328030) Infection of wound due to methicillin resistant Staphylococcus aureus (MRSA) (A49.02) Active confirmed Problem Arthritis of knee (263206471) Arthritis of knee (M17.10) Active confirmed Problem Amputated below knee (561008045) Status post below knee amputation of right lower extremity (Z89.511) Active confirmed Problem Gastroesophageal reflux disease (671218445) Gastroesophageal reflux disease, unspecified whether esophagitis present [...]
--- OUTSIDE RECORDS SUMMARY | 2025-05-14 08:24 | XMS_ITS | Continuity of Care Document ---
Author Organization [facility] & [facility] Infectious Disease -105 Address [address] [place] [address] Care Team Providers Care Binder Technician Name Role Phone SYBIL WILLIAM Primary Care [...] Time Methicillin resistant Staphylococ cus aureus infection 313022012 Active 2023 Amy jaramillo [place] Daja [facility] & [place] 4 10:16:00 High risk medication monitoring indicated [id number] 9103 Active 2023 Amy jaramillo [place] Daja [facility] & [place] 4 10:16:36 Problem Notes None recorded. Procedures Surgical History Date Name Laterality Status Provider Name and Address Organization Details Recorded Time 03/26/20 24 Venipuncture cancelled Luci Ag PA-C [address] , [place], [address], [facility] & [place] 03/18/2024 14:56:10 10/24/19 24 Venipuncture completed Luci gA PA-C [address] [facility], [place], [address], [facility] & [place] 10/23/2023 10:53:19 07/25/19 24 [facility] [place] 07/25/2023 14:41:20 [facility] [place] 07/25/2023 13:57:05 Imaging Results None recorded. Procedure Notes None recorded. Medical Equipment None Reported. Allergies Allergen ID Allergen Name Allergen Category Reaction Reaction Severity Criticality Documentation Date Start Date Code Code System Note Provider Name and Address Organization Details Recorded Time 924342 cefdinir medicatio n Not available Not available Not available 06/02/2023 91459 RxNorm Isabel Kay [facility] & [place] 10:06:00 Medications Name Sig Start Date Stop [...] active Not Available Not Available Not Available [facility] 10 billion cell-200 [...] % 94 % 98.8 [degF] 41.7 kg/m2 612404. 12 g 140/96 mm[Hg] Amy Aquino [facility] & [place] 11:13:21 Social History Question Answer Notes LastModified by [facility] [employer] ion Details LastModified Time Tobacco Smoking Status Never Smoker Isabel Rahul [facility] 06/02/2023 10:06:28 Do You Have An Advance Directive? No [email or web address] Information not available 04/28/2025 Are You Blind Or Do You Have Difficulty Seeing? No [email or web address] Information not available 04/28/2025 What Was The Date Of Your Most Recent Tobacco Screening? 04/20/2025 [email or web address] Information not available 04/28/2025 Are You Passively Exposed To Smoke? No [email or web address] Information not available 04/28/2025 Sex: Unknown Functional Status Question Answer Note LastModified by [employer] Details LastModified Time Do you use any illicit or recreational drugs? No [email or web address] Information not available 07/25/2023 What is your level of alcohol consumption? None [email or web address] Information not available 04/28/2025 Mental Status None recorded. Family History Nothing Reported. Medical History Condition Response Clotting Disorder Y Back Problems Y Hypertension Y Immunizations Vaccine Type Date Status Note Provider Nam e and Address Organization Details Recorded Time Td (adult), 2 Lf tetanus toxoid, preservative free, adsorbed 6 completed Sarah Vidal [facility], [place] - [facility] & [place] 07/25/2023 13:54:15 Past Encounters Encounter ID Performer Location Encounter Start Date Encounter Closed Date Diagnosis/Indication Diagnosis SNOMED-CT Code Diagnosis ICD10 Code Diagnosis IMO Codes Diagnosis Note [id number] Randy Torres MD [facility] Infectiou s Disease -105 [address] [place] [address] 04/28/2025 11:00:57 04/28/2025 11:33:23 Osteomyelitis 14519226 M86.9 171034 This patient has a recurrentc hronic osteomyeli [...] week. Methicilli n resistant Staphylococcus aureus infection 904511882 B95.62 1594090 As above Health Concerns Section Related Observation LastModified by Organization Detai ls LastModified Time None Recorded Concern Status LastModified by Organization Details LastModified Time None Recorded Payers Encounter Date Sequence Insurance Name Policy Number Policy Brantley Covered Member ID Brantley Member ID Guarantor Name 04/28/2025 2 [place] [employer] [place] [employer] - FFS/TRADITIONA L Won Dennis [id number] Won Dennis 04/28/2025 3 [employer] - [place]MED[place]ID [place]AC[place] - HMO) Won Dennis [id number] Won Sonny Notes Date Note Type Note [...] issues tolerating the daptomycin. Randy Torres MD [address] [facility], [place], [address], [facility] [place] & [place] 04/28/2025 11:42:44
--- OUTSIDE RECORDS SUMMARY | 2025-05-14 08:24 | XMS_ITS | Data Portability ---
Author Organization [place] - [facility] & [place] [facility] ADMIN Address [address] [place] [id number] Care Team Providers Care Epic Director Name Role Phone SYBIL WILLIAM Primary Care Provider [phone] Assessment No assessment recorded. Plan of Treatment Reminders Order Date Submit Date Provider Last Modified By Organization Details Last Modified Time Details Appointments Establish ed Visit 15 min 2024 10:15A Jadyn Torres MD Not available Not available Not available Lab C-reactiv e protein, quantitat nasim, serum or plasma [address] [facility], [address] [facility], [place], [address], 05/02/2024 17:36:31 ESR (erythroc yte sedimenta tion rate), blood [address] [facility], [address] [facility], [place], [address], 05/02/2024 17:36:31 C-reactiv e protein, quantitat nasim, serum or plasma 2023 024 [place] [address] [facility], [address], [address], [place], [address], 11/01/2023 08:08:32 ESR (erythroc yte sedimenta tion rate), blood 2023 024 [place] [address] [facility], [address], [address], [place], [address], 11/01/2023 08:08:32 CBC w/ auto diff 2023 024 [facility], [address], [place], [address], 10/24/2023 16:12:13 CMP, serum or plasma 2023 024 [facility], [address], [place], [address], 10/24/2023 16:42:07 Referral None recorded. Procedures None recorded. Surgeries None recorded. Imaging None recorded. Medication Orders doxycycli ne hyclate [address] capsule [address] [facility], [address], [address], 05/05/2025 10:47:50 doxycycli ne hyclate 100 mg capsule [address], [address], [address], 05/05/2025 10:31:23 Patient TargetsNo targets recorded. Patient InstructionsNo instructions recorded. Reason for Referral None Reported. Results Created Date Observation Date Name Description Value Unit Range Abnormal Flag Note LastModifiedBy Organization Detail LastModifiedTime 10/24/1910/24/2023 CBC AUTO W DIFF WBC 6.9 K/uL 4.0-10 .5 Not Available [facility] ([facility]) [address], [place], [address], 10/24/2023 16:12:13 10/24/19 24 10/24/2023 CBC AUTO W DIFF RBC 5.7 M/mm3 4.7-6. 1 Not Available [facility] ([facility]) [address], [place], [address], 10/24/2023 16:12:13 10/24/19 24 10/24/2023 CBC AUTO W DIFF HGB 14.7 gm/dL 13.5-1 8.0 Not Available [facility] ([facility]) [address] , [place], [address], 10/24/2023 16:12:13 10/24/19 24 10/24/2023 CBC AUTO W DIFF HCT 46.0 % 42.0-5 2.0 Not Available [facility] ([facility]) [address] , [place], [address], 10/24/2023 16:12:13 10/24/19 24 10/24/2023 CBC AUTO W DIFF MCV 80.4 fL 78-100 Not Available [facility] ([facility]) [address] , [place], [address], 10/24/2023 16:12:13 10/24/19 24 10/24/2023 CBC AUTO W DIFF MCH 25.7 pg 27-31 low Not Available [facility] ([facility]) [address] , [place], [address], 10/24/2023 16:12:13 10/24/19 24 10/24/2023 CBC AUTO W DIFF MCHC 32.0 g/dL 32-36 Not Available [facility] ([facility]) [address] , [place], [address], 10/24/2023 16:12:13 10/24/19 24 10/24/2023 CBC AUTO W DIFF RDW 14.3 % 11.5-1 4.0 high Not Available [facility] ([facility]) [address] [place], [address], 10/24/2023 16:12:13 10/24/19 24 10/24/2023 CBC AUTO W DIFF platelet count 258 K/uL 150-45 0 Not Available [facility] ([facility]) [address] [facility] [place], [address], 10/24/2023 16:12:13 10/24/19 24 10/24/2023 CBC AUTO W DIFF MPV 9.6 fL 6-9.5 high Not Available [facility] ([facility]) [address], [place], [address], 10/24/2023 16:12:13 10/24/19 24 10/24/2023 CBC AUTO W DIFF neutrophil% 70.1 % 43-65 high Not Available [facility] ([facility]) [address], [place], [address], 10/24/2023 16:12:13 10/24/19 24 10/24/2023 CBC AUTO W DIFF lymphocyte% 18.4 % 20.5-4 5.5 low Not Available [facility] ([facility]) [address], [place], [address], 10/24/2023 16:12:13 10/24/19 24 10/24/2023 CBC AUTO W DIFF monocyte% 8.7 % 5.5-11 .7 Not Available [facility] ([facility]) [address] [facility], [place], [address], 10/24/2023 16:12:13 10/24/19 24 10/24/2023 CBC AUTO W DIFF eosinophil% 2.3 % 0.9-2. 9 Not Available [facility] ([facility]) [address] [place], [address], 10/24/2023 16:12:13 10/24/19 24 10/24/2023 CBC AUTO W DIFF basophil% 0.4 % 0.2-1. 0 Not Available [facility] ([facility]) [address] [place], [address], 10/24/2023 16:12:13 10/24/19 24 10/24/2023 CBC AUTO W DIFF immature granulocytes % 0.1 % 0.0-0. 8 Not Available [facility] ([facility]) [address], [place], [address], 10/24/2023 16:12:13 10/24/19 24 10/24/2023 CBC AUTO W DIFF nucleated red blood cells % 0.0 % Not Available [facility] ([facility]) [address], [place], [address], 10/24/2023 16:12:13 10/24/19 24 10/24/2023 CBC AUTO W DIFF neutrophil# 4.8 K/uL 2.2-4. 8 Not Available [facility] ([facility]) [address] [facility], [place], [address], 10/24/2023 16:12:13 10/24/19 24 10/24/2023 CBC AUTO W DIFF lymphocyte# 1.3 cell/ mcL 1.3-2. 9 Not Available [facility] ([facility]) [address], [place], [address], 10/24/2023 16:12:13 10/24/19 24 10/24/2023 CBC AUTO W DIFF monocyte# 0.6 cell/ mcL 0.3-0. 8 Not Available [facility] ([facility]) [address] [facility], [place], [address], 10/24/2023 16:12:13 10/24/19 24 10/24/2023 CBC AUTO W DIFF eosinophil# 0.2 cell/ mcL 0-0.2 Not Available [facility] ([facility]) [address] [facility], [place], [address], 10/24/2023 16:12:13 10/24/19 24 10/24/2023 CBC AUTO W DIFF basophil# 0.0 cell/ mcL 0.0-1. 0 Not Available [facility] ([facility]) [address] [place], [address], 10/24/2023 16:12:13 10/24/19 24 10/24/2023 CBC AUTO W DIFF immature gramulocytes # 0.01 K/uL Not Available [facility] ([facility]) [address], [place], [address], 10/24/2023 16:12:13 10/24/19 24 10/24/2023 CBC AUTO W DIFF nucleated red blood cells # 0.00 K/uL Not Available [facility] ([facility]) [address] , [place], [address], 10/24/2023 16:12:13 10/24/19 24 10/24/2023 CBC AUTO W DIFF manual differential NO Not Available [facility] ([facility]) [address] , [place], [address], 10/24/2023 16:12:13 10/24/19 24 10/24/2023 COMP METAB OLIC PANEL sodium 139 mmol/ L 136-14 5 Not Available [facility] ([facility]) [address], [place], [address], 10/24/2023 16:42:07 10/24/19 24 10/24/2023 COMP METAB OLIC PANEL potassium 4.0 mmol/ L 3.6-5. 0 Not Available [facility] ([facility]) [address] , [place], [address], 10/24/2023 16:42:07 10/24/19 24 10/24/2023 COMP METAB OLIC PANEL chloride 104 mmol/ L 98-107 Not Available [facility] ([facility]) [address] [place], [address], 10/24/2023 16:42:07 10/24/19 24 10/24/2023 COMP METAB OLIC PANEL carbon dioxide 28.1 mmol/ L 21.0-3 2.0 Not Available [facility] ([facility]) [address], [place], [address], 10/24/2023 16:42:07 10/24/19 24 10/24/2023 COMP METAB OLIC PANEL anion gap 10.9 Not Available [facility] ([facility]) [address], [place], [address], 10/24/2023 16:42:07 10/24/19 24 10/24/2023 COMP METAB OLIC PANEL glucose 99 mg/dL 70-120 Not Available [facility] ([facility]) [address], [place], [address], 10/24/2023 16:42:07 10/24/19 24 10/24/2023 COMP METAB OLIC PANEL BUN 16 mg/dL 7-18 Not Available [facility] ([facility]) [address] , [place], [address], 10/24/2023 16:42:07 10/24/19 24 10/24/2023 COMP METAB OLIC PANEL creatinine 0.9 mg/dL 0.6-1. 3 Not Available [facility] ([facility]) [address] , [place], [address], 10/24/2023 16:42:07 10/24/19 24 10/24/2023 COMP METAB OLIC PANEL glomerular filtration rate >60 mlper min 60- Not Available [facility] ([facility]) [address], [place], [address], 10/24/2023 16:42:07 10/24/19 24 10/24/2023 COMP METAB OLIC PANEL total protein 7.2 g/dL 6.4-8. 2 Not Available [facility] ([facility]) [address] , [place], [address], 10/24/2023 16:42:07 10/24/19 24 10/24/2023 COMP METAB OLIC PANEL albumin 3.6 g/dL 3.4-5. 0 Not Available [facility] ([facility]) [address], [place], [address], 10/24/2023 16:42:07 10/24/19 24 10/24/2023 COMP METAB OLIC PANEL globulin 3.6 Not Available [facility] ([facility]) [address], [place], [address], 10/24/2023 16:42:07 10/24/19 24 10/24/2023 COMP METAB OLIC PANEL alb/glob ratio 1.0 0.7-2 Not Available [facility] ([facility]) [address], [place], [address], 10/24/2023 16:42:07 10/24/19 24 10/24/2023 COMP METAB OLIC PANEL calcium 8.6 mg/dL 8.5-10 .5 Not Available [facility] ([facility]) [address], [place], [address], 10/24/2023 16:42:07 10/24/19 24 10/24/2023 COMP METAB OLIC PANEL bilirubin total 0.50 mg/dL 0.10-1 .00 Not Available [facility] ([facility]) [address], [place], [address], 10/24/2023 16:42:07 10/24/19 24 10/24/2023 COMP METAB OLIC PANEL AST (SGOT) 23 U/L 0-37 Not Available [facility] ([facility]) [address], [place], [address], 10/24/2023 16:42:07 10/24/19 24 10/24/2023 COMP METAB OLIC PANEL ALT (SGPT) 39 U/L 0-65 Not Available [facility] ([facility]) [address] , [place], [address], 10/24/2023 16:42:07 10/24/19 24 10/24/2023 COMP METAB OLIC PANEL alk phosphatase 80 U/L 46-116 Not Available [facility] ([facility]) [address] [facility], [place], [address], 10/24/2023 16:42:07 10/25/19 24 10/26/2023 SEDIM ENTAT ION RATE- WESTE RGREN sedimentatio n rate-westerg los 5 mm/HR 0-15 Not Available [facility] ([facility]) [address] [facility], [place], [address], 11/03/2023 15:11:19 10/25/19 24 10/27/2023 C-CHANA CTIVE PROTE IN, QUANT C-reactive protein, quant 15 mg/L 0-10 above high normal Not Available [facility] ([facility]) [address] [place], [address], 11/03/2023 15:11:21 04/23/20 24 04/23/2024 C-CHANA CTIVE PROTE IN (CRP) C-reactive protein, quant 1.1 mg/dL 0.05-0 .300 high Not Available [facility] ([facility]) [address] [facility], [place], [address], 04/23/2024 10:36:29 04/23/20 24 04/23/2024 SED RATE sed rate auto 4 0-15 Not Available [facility] ([facility]) [address] [facility], [place], [address], 04/23/2024 10:54:51 11/20/19 24 11/20/2023 arti melgar x US lwr RT ext [facility] [address] [place] [address] Phone: Fax: Name: GAYATHRI DENNIS Exam Date: 024 : 1979 Age 43 years Gender : M Access ion: [id number] Physic lou: THAO BRADFORD [facility] [place] Facili ty HSV: Outpat ient [...] Thank you for referr GAYATHRI Rodríguez to [facility]. Legall y authen ticate d by YANELIS Macias IVO 11-19 11:51: 02 CC'ed Logic: Orderi ng Provid er: SPENCER OSUNA Attend ing Provid er: SPENCER OSUNA Referr ing Provid er: SPENCER OSUNA Admitt ing Provid er: SPENCER [email or web address] [facility] - [facility] Therapy [address] [facility], [place], [address], 11/20/2023 12:58:54 11/20/19 24 11/20/2023 CT, angio gram, chest , w/ contr ast [facility] [address] [place] [address] Phone: Fax: Name: GAYATHRI DENNIS Exam Date: : 1979 Age 43 years Gender : M Access ion: [id number] Physic lou: THAO BRADFORD Facili ty: [facility] Facili ty HSV: Outpat ient Exam: [...] you for referr ing GAYATHRI DENNIS to [facility]. Legall y authen ticate d by YANELIS Macias IVO 11-19 12:06: 58 CC'ed Logic: Orderi ng Provid er: SPENCER OSUNA Attend ing Provid er: SPENCER OSUNA Referr ing Provid er: SPENCER OSUNA Admitt ing Provid er: SPENCER OSUNA [email or web address] [facility] [address] [place] [address], [address], 11/21/2023 16:18:56 Result Notes Documentation Provider Name and Address Organization Details Recorded Time Ct, Angiogram, Chest, W/ Contrast : [place] [address] Name: MITCHELLWON LANDERS Exam Date: 11/20/2023 : 1980 Age 43 years Gender: M Physician: THAO BARNES Facility: [facility] Facility HSV: Outpatient Exam: CTA CHEST [...] Thank you for referring WON DENNIS to [facility]. Legally authenticated by RENALDO DÍAZ 2023-11-20 12:06:58 CC'ed Logic: Ordering Provider: MOLLY OSUNA Attending Provider: MOLLY OSUNA Referring Provider: MOLLY OSUNA Admitting Provider: YVON De Jesus LPNT [facility] & [place] 11/21/2023 16:18:56 Problems Name Problem SNOMED Code Status Onset Date Resolution Date Notes Provider Name and Address Organization Details Recorded Time Methicillin resistant Staphylococ cus aureus infection 112757662 Active 2023 YVON Palomo LPNT [facility] & [place] 10:16:00 High risk medication monitoring indicated 0432808744151 9103 Active 2023 YVON Palomo LPNT - [place] & [place] 10:16:36 Problem Notes None recorded. Procedures Surgical History Date Name Laterality Status Provider Name and Address Organization Details Recorded Time 03/26/20 24 Venipuncture cancelled Thao Barnes PA-C [address], [place], [address], [facility] & [place] 03/18/2024 14:56:10 10/24/19 24 Venipuncture completed Thao Barnes PA-C [address], [place], [address], [facility] & [place] 10/23/2023 10:53:19 07/25/19 24 [facility] [place] 07/25/2023 14:41:20 amputation of lower limb completed [facility] & [place] 07/25/2023 13:57:05 Imaging Results None recorded. Procedure Notes None recorded. Medical Equipment None Reported. Allergies Allergen ID Allergen Name Allergen Category Reaction Reaction Severity Criticality Documentation Date Start Date Code Code System Note Provider Name and Address Organization Details Recorded Time 586506 cefdinir medicatio n Not available Not available Not available 06/02/2023 89530 RxNorm Isabel Kay [facility] & [place] 10:06:00 Medications Name Sig Start Date Stop [...] active Not Available Not Available Not Available [facility] 10 billion cell-200 mg sprinkle [...] Updated DateTime 4 182.88 cm 43.3 kg/m2 487262. 97 g 98 [degF] 95 /min 96 % 96 % 137/92 mm[Hg] Sarah Hendersonmayank [facility] & [place] 4 14:44:48 Date Recorded Body height Body mass index (BMI) Body weight Body temperature Oxygen saturation Oxygen saturation in Arterial blood by Pulse oximetry Heart rate Systolic And Diastolic Provider Name and Address Organization Details Last Updated DateTime 4 182.88 cm 43.2 kg/m2 309640. 81 g 98.6 [degF] 95 % 95 % 86 /min 134/84 mm[Hg] Amy Aquino [facility] & [place] 4 08:59:12 Date Recorded Body height Body mass index (BMI) Body weight Body temperature Oxygen saturation Oxygen saturation in Arterial blood by Pulse oximetry Heart rate Systolic And Diastolic Provider Name and Address Organization Details Last Updated DateTime 4 182.88 cm 42.9 kg/m2 957995. 19 g 98 [degF] 94 % 94 % 70 /min 140/80 mm[Hg] Kalie Gibbs [facility] & [place] 4 09:24:00 Date Recorded Heart rate Body height Oxygen saturation Oxygen saturation in Arterial blood by Pulse oximetry Body temperature Body mass index (BMI) Body weight Systolic And Diastolic Provider Name and Address Organization Details Last Updated DateTime 5 85 /min 180.34 cm 94 % 94 % 98.8 [degF] 41.7 kg/m2 986027. 12 g 140/96 mm[Hg] Amy Aquino [facility] & [place] 5 11:13:21 Date Recorded Body height Heart rate Oxygen saturation Oxygen saturation in Arterial blood by Pulse oximetry Body mass index (BMI) Body weight Body temperature Systolic And Diastolic Provider Name and Address Organization Details Last Updated DateTime 5 180.34 cm 90 /min 94 % 94 % 41.8 kg/m2 959703. 71 g 97.5 [degF] 120/70 mm[Hg] Amy SANZ [facility] & [place] 5 10:30:54 Social History Question Answer Notes LastModified by App Partner Details LastModified Time Tobacco Smoking Status Never Smoker Isabel Abdullahiey [facility] & [place] 06/02/2023 10:06:28 Do You Have An Advance Directive? [email or web address] Information not available 04/28/2025 Are You Blind Or Do You Have Difficulty Seeing? No [email or web address] Information not available 04/28/2025 What Was The Date Of Your Most Recent Tobacco Screening? 04/20/2025 [email or web address] Information not available 04/28/2025 Are You Passively Exposed To Smoke? No [email or web address] Information not available 04/28/2025 Sex: Unknown Functional Status Question Answer Note LastModified by App Partner Details LastModified Time Do you use any illicit or recreational drugs? No Information not available 07/25/2023 What is your level of alcohol consumption? None [email or web address] Information not available 04/28/2025 Mental Status None recorded. Family History Nothing Reported. Medical History Condition Response Clotting Disorder Y Back Problems Y Hypertension Y Immunizations Vaccine Type Date Status Note Provider Shay moralez and Address Organization Details Recorded Time Td (adult), 2 Lf tetanus toxoid, preservative free, adsorbed 6 completed Sarah jaramillo, [place] - [facility] - [place] & [place] 07/25/2023 13:54:15 Past Encounters Encounter ID Performer Location Encounter Start Date Encounter Closed Date Diagnosis/Indication Diagnosis SNOMED-CT Code Diagnosis ICD10 Code Diagnosis IMO Codes Diagnosis Note [id number] Randy Torres MD [facility] Infect[facility] s Disease [address] [place] [address] 06/02/2023 09:54:50 06/02/2023 10:26:43 Osteomyelitis 69905834 M86.9 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 Influenza caused by Influenza A virus 410021555 J09.X2 Resolved.. No further oseltamivi r needed. High risk medication monitoring indicated 3800812194 7534354 Z76.89 Related to the daptomycin . I will check a total CK and continue to follow serial levels of this enzyme to make sure he develops no rhabdomyol ysis. [id number] Randy Torres MD [facility] Disease [address] [place] [address] 06/09/2023 10:23:03 06/09/2023 10:54:12 Osteomyelitis 15123480 M86.9 Occurring in the right BKA stump [...] time. Methicilli n resistant Staphylococcus aureus infection 182911370 A49.02 As above High risk medication monitoring indicated 0122274915 6267387 Z76.89 This is related to the daptomycin . I will continue to monitor his total CK levels closely. [id number] Randy Torres MD [facility] [address] [place] [address] 06/28/2023 10:37:09 06/28/2023 11:22:08 Osteomyelitis 48353179 M86.9 Occurring in the right BKA stump [...] week. Methicilli n resistant Staphylococcus aureus infection 189105482 A49.02 As above [id number] Randy Trores MD [facility] Disease [address] [place] [address] 07/06/2023 09:38:06 07/06/2023 10:00:10 Osteomyelitis 14818805 M86.9 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 Methicilli n resistant Staphylococcus aureus infection 957511141 A49.02 As above Adverse re action to drug 67339154 T50.905A Related to doxycyclin e. This is gastrointe stinal in nature. I will check his liver function testing to make sure he is not developing any hepatotoxi city. I will drop the dose to 100 mg per day. I want him to continue to take it with food. I will re-evaluat e next week. [id number] Randy Torres MD [facility] Disease [address] [place] [address] 07/12/2023 08:53:12 07/12/2023 09:54:35 Osteomyelitis 30411380 M86.9 Occurring in the right BKA stump [...] month. Methicilli n resistant Staphylococcus aureus infection 122650232 A49.02 As above [id number] Thao Barnes PA-C [facility] [address] [place] [address] 07/25/2023 13:39:19 07/26/2023 06:33:52 Deep venous thrombosis 666868094 I82.409 Patient has a history of osteomyeli [...] performed when patient was hospitaliz ed at [facility] on May 26, 2023 with normal antithromb in 3 activity. No evidence of factor 5 Leiden mutation. Discussed with patient will order additional labs for further evaluation acquired hypercoagu lable disorder today. Discussed will likely continue on least the prophylact ic dose of Eliquis lifelong due to separate occurrence s of blood clots. Pulmonary embolism 80392 003 I26.99 Patient has a history of [...] s of blood clots. Anticoagulant therapy 18 3489289 Z79.01 Patient continues on Eliquis 5 mg 1 tab p.o. b.i.d.. He is tolerating without trouble. Discussed will likely continue on least the prophylact ic dose of Eliquis lifelong due to separate occurrence s of blood clots. [id number] Thao Barnes PA-C [facility] [address] [place] [address] 10/24/2023 14:29:27 10/24/2023 15:33:34 Deep venous thrombosis 950441043 I82.409 Patient has a history of osteomyeli [...] performed when patient was hospitaliz ed at [facility] on May 26, 2023 with normal [...] Will follow up labs today. Pulmonary embolism 30404 003 I26.99 Patient has a history of [...] follow up labs today. Anticoagulant therapy 18 8740091 Z79.01 Patient continues on Eliquis 5 mg 1 tab p.o. b.i.d.. He is tolerating without trouble. Discussed will continue on least the prophylact ic dose of Eliquis lifelong due to separate occurrence s of blood clots. Will follow up venous duplex of lower extremity and chest CTA to make sure no evidence of embolism before reducing Eliquis dose to 2.5 mg b.i.d. [id number] Randy Torres MD [facility] Disease [address] [place] [address] 10/25/2023 08:49:58 10/25/2023 10:57:40 Osteomyelitis 81940377 M86.9 Occurring in the right BKA stump [...] months. Methicilli n resistant Staphylococcus aureus infection 739107679 A49.02 As above High risk medication monitoring indicated 3293552514 6676519 Z76.89 This is related to the chronic suppressiv e doxycyclin e. I reviewed his liver function testing from yesterday. There is no evidence of any hepatotoxi city. I will continue to monitor this at each visit. I also counseled him about the risk of photosensi tivity with doxycyclin e. [id number] Randy Torres MD [facility] Infect[facility] s Disease -105 [address] [facility] [address] [place] [address] 04/23/2024 09:14:33 04/23/2024 09:34:49 Osteomyelitis 74773769 M86.9 Occurring in the right BKA stump [...] month. Methicilli n resistant Staphylococcus aureus infection 298047294 A49.02 As above [id number] Randy Torres MD [facility] Disease -105 [address] [facility] [address] [place] [address] 04/28/2025 11:00:57 04/28/2025 11:33:23 Osteomyelitis 23007046 M86.9 160361 This patient has a recurrentc hronic osteomyeli [...] week. Methicilli n resistant Staphylococcus aureus infection [id number] B95.62 [id number] As above [id number] Randy Torres MD [facility] Infectiou s Disease -105 [address] [facility] [address] [place] [address] 05/05/2025 10:21:03 05/05/2025 10:37:01 Chronic osteomyelitis of right tibia [id number] M86.461 [id number] This is recurrent and involves the right [...] today. Methicilli n resistant Staphylococcus aureus infection [id number] A49.02 209377 This is the pathogen as above. Taking hig h risk medication [id number] Z79.536 [id number] This is related to the long-term intravenou [...] ID Guarantor Name 01/27/2024 1 [place] [id number] Won Dennis [id number] Won Dennis 05/01/2025 2 [facility] CHOICES - FFS/TRADITIONA L Won Dennis [id number] Won Dennis 05/01/2025 1 [place] Won Dennis [id number] Won Dennis 04/28/2025 1 [employer] Won Dennis [id number] Won Dennis 04/30/2025 3 [facility] (MEDICAID REPLACEMENT - HMO) Won Dennis [id number] Won Dennis Notes Date Note Type Note [...] Labs performed when patient was hospitalized at [facility] on May 26, 2023 with normal [...] follow up labs today. Thao Barnes PA-C [address], [place], [address], [place] - [facility] - [place] & [place] 10/24/2023 15:43:34 10/25/2023 text/html ROS as noted in the HPI This is a 42-year-old white male following up with dc for [...] well. Randy Torres MD [address], [place], [address], 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 Since his debridement, he completed 6 weeks of intravenous daptomycin and 1 year of suppressive doxycycline. He is remained infection free. His stump is fully healed. No fever. No other issues. He is tolerating the doxycycline well. Randy Torres MD [address], [place], [address], [facility] & [place] 04/23/2024 09:31:22 04/28/2025 text/html ROS as noted in the HPI This is a 44-year-old white male who is following up with dc for a right stump infection due to [...] daptomycin and is now referred back to dc. He has been on intravenous daptomycin for almost 4 weeks. The swelling in his stump has gone down. There is no persisting redness or pain. No fever. No issues tolerating the daptomycin. Randy Torres MD [address], [place], [address], [facility] [place] 04/28/2025 11:42:44 05/05/2025 text/html ROS as noted in the HPI This is a 44-year-old white male who is following up with dc for a recurrent osteomyelitis of his right [...] the infusion center in [place] [facility]. His stump is doing well. All surgical incisions remain healed. There has been no undue pain or swelling. No redness. No drainage. Randy Torres MD [address], [place], [address], [facility] - [facility] - [place] & [place] 05/05/2025 10:41:36
--- OUTSIDE RECORDS SUMMARY | 2025-05-14 08:24 | XMS_ITS | Continuity of Care Document ---
Author Organization [facility] Infectious Disease -105 Address [address] [facility] [address] [place] [address] Care Team Providers Care Senior Java Software Engineer Name Role Phone SYBIL WILLIAM Primary [...] ne hyclate 100 mg capsule 2024 025 [facility], [address], [address], 05/05/2025 10:47:50 Patient TargetsNo targets recorded. Patient InstructionsNo instructions recorded. Reason for Referral None Reported. Results Created Date Observation Date Name Description Value Unit Range Abnormal Flag Note LastModifiedBy Organization Detail LastModifiedTime Result Notes None recorded. 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 Procedures Surgical History Date Name Laterality Status Provider Name and Address Organization Details Recorded Time 03/26/20 24 Venipuncture cancelled Luci Ag PA-C [address] , [place], [address], [facility] & [place] 03/18/2024 14:56:10 10/24/19 24 Venipuncture completed Luci Ag PA-C [address], [place], [address], [facility] & [place] 10/23/2023 10:53:19 07/25/19 24 Venipuncture completed [facility] & [place] 07/25/2023 14:41:20 amputation of lower limb completed [facility] & [place] 07/25/2023 13:57:05 Imaging Results None recorded. Procedure Notes None recorded. Medical Equipment None Reported. Allergies Allergen ID Allergen Name Allergen Category Reaction Reaction Severity Criticality Documentation Date Start Date Code Code System Note Provider Name and Address Organization Details Recorded Time 245714 cefdinir medicatio n Not available Not available Not available 06/02/2023 11590 RxNorm Isabel Kay [facility] & [place] 10:06:00 Medications Name Sig Start [...] Not Available Not Available [facility] 10 billion cell-200 mg sprinkle capsule [...] /min 94 % 94 % 41.8 kg/m2 322736. 71 g 97.5 [degF] 120/70 mm[Hg] Amy Farnsworth [facility] & [place] 10:30:54 Social History Question Answer Notes LastModified by Organizat ion Details LastModified Time Tobacco Smoking Status Never Smoker [facility] & [place] 06/02/2023 10:06:28 Do You Have An Advance Directive? No [email or web address] Information not available 04/28/2025 Are You Blind Or Do You Have Difficulty Seeing? No [email or web address] Information not available 04/28/2025 What Was The Date Of Your Most Recent Tobacco Screening? 04/20/2025 [email or web address] Information not available 04/28/2025 Are You Passively Exposed To Smoke? No [email or web address] Information not available 04/28/2025 Sex: Unknown Functional Status Question Answer Note LastModified by Organizat ion Details LastModified Time Do you use any illicit or recreational drugs? No [email or web address] Information not available 07/25/2023 What is your level of alcohol consumption? None [email or web address] Information not available 04/28/2025 Mental Status None recorded. Family History Nothing Reported. Medical History Condition Response Clotting Disorder Y Back Problems Y Hypertension Y Immunizations Vaccine Type Date Status Note Provider Nam kirt and Address Organization Details Recorded Time Td (adult), 2 Lf tetanus toxoid, preservative free, adsorbed 6 completed Sarah [facility], [place] - [facility] - [place] & [place] 07/25/2023 13:54:15 Past Encounters Encounter ID Performer Location Encounter Start Date Encounter Closed Date Diagnosis/Indication Diagnosis SNOMED-CT Code Diagnosis ICD10 Code Diagnosis IMO Codes Diagnosis Note [id number] [facility] Infect[facility] Disease -[address] [place] [address] 04/28/2025 11:00:57 04/28/2025 11:33:23 Osteomyelitis [id number] M86.9 [id number] This patient has a recurrentc hronic osteomyeli [...] week. Methicilli n resistant Staphylococcus aureus infection [id number] B95.62 [id number] As above [id number] Randy [facility] MD [facility] Infect[facility] Disease -[address] [place] [address] 05/05/2025 10:21:03 05/05/2025 10:37:01 Chronic osteomyelitis of right tibia [id number] 438567 M86.461 [id number] This is recurrent and involves the right [...] today. Methicilli n resistant Staphylococcus aureus infection 368667897 A49.02 425473 This is the pathogen as above. Taking hig h risk medication 9936868569 66435 Z79.606 [id number] This is related to the long-term intravenou [...] Brantley Member ID Guarantor Name 05/05/2025 2 [facility] HEALTH CHOICES - FFS/TRADITIO NAL oWn Dennis [id number] Won Dennis 05/05/2025 1 [place] Won Dennis [id number] Won Dennis Notes Date Note Type Note [...] once daily at the infusion center in [facility]. His stump is doing well. All surgical incisions remain healed. There has been no undue pain or swelling. No redness. No drainage. Randy Torres MD [address] [facility], [place], [address], [place] [facility] - [place] & [place] 05/05/2025 10:41:36
[2025-05-14] MEDS: SODIUM CHLORIDE 0.9% 10ML FLUSH SYRINGE 10 ML IV (08:25)
--- OUTSIDE RECORDS SUMMARY | 2025-05-14 08:26 | XMS_ITS | Clinical Summary ---
Author Organization [facility] Address [address] [place] [address] Care Team Providers Care Psychotherapist Name Role Phone Provider, No Known Primary [...] EDT Anesthesia Event [facility] OR [address] [place] [address] Ulises Hoffman MD Wells, Jeremy B., MD 04/08/2025 2:45 PM EDT - 04/08/2025 4:04 PM EDT Surgery [facility] OR [address] [place] [address] Sushil Dean Jr., MD LEG DEBRIDEMENT AND IRRIGATION 04/07/2025 8:36 PM EDT Anesthesia Event [facility] OR [address] [place] [address] Luci Alonso DO 04/07/2025 6:00 PM EDT - 04/07/2025 6:52 PM EDT Surgery [facility] OR [address] [place] [phone] Sushil Dean Jr., MD LEG DEBRIDEMENT, IRRIGATION 04/04/2025 4:10 PM EDT - 04/11/2025 1:58 PM EDT Hospital Encounter [facility] [address] [place] [address] Mario Crowley, Leonora Calderon MD Gay, Bryce, [...] drink = 0.6 oz pur e alcohol) [facility] Answer Date Recorded In the past 12 months has [employer], gas, oil, or water [employer] threatened to shut off services in your [...] or training? Not on file Preferred Language Lithuanian 04/07/2025 Sex and Gender Information Value Date [...] this topic Medical Devices Implanted Type Area Seating Upholsterer Device Identifier Shelf Expiration Date Model / Serial / Lot Dev Wnd/Cls Contrl Tiss Strata[employer] Spiral Pls Pds Ct1 0 22cm - [id number] Implanted:Qty: 1 on 04/08/2025 by Sushil Dean Jr., MD at [facility] Implant Right: Leg [employer] 12/07/2025 [id number] / / [id number] Procedures Procedure Name Priority [...] 3.40 - 10.80 10*3/mm3 [facility] RBC 4.70 4.14 - 5.80 10*6/mm3 04/11/2025 4:02 AM [facility] Hemoglobin 12.8(L) 13.0 - 17.7 g/dL 04/11/2025 4:02 AM [facility] Hematocrit 40.5 37.5 - 51.0 % 04/11/2025 4:02 [facility] MCV 86.2 79.0 - 97.0 fL 04/11/2025 4:02 AM [facility] MCH 27.2 26.6 - 33.0 pg 04/11/2025 4:02 AM [facility] MCHC 31.6 31.5 - 35.7 g/dL 04/11/2025 4:02 AM [facility] RDW 12.9 12.3 - 15.4 % 04/11/2025 4:02 AM [facility] RDW-SD 40.5 37.0 - 54.0 fl 04/11/2025 4:02 AM [facility] MPV 9.2 6.0 - 12.0 fL 04/11/2025 4:02 AM [facility] Platelets 267 140 - 450 10*3/mm3 04/11/2025 4:02 AM [facility] Neutrophil % 59.5 42.7 - 76.0 % 04/11/2025 4:02 AM [facility] Lymphocyte % 26.3 19.6 - 45.3 % 04/11/2025 4:02 AM [facility] Monocyte % 9.3 5.0 - 12.0 % 04/11/2025 4:02 [facility] Eosinophil % 4.1 0.3 - 6.2 % 04/11/2025 4:02 [facility] Basophil % 0.4 0.0 - 1.5 % 04/11/2025 4:02 [facility] Immature Grans % 0.4 0.0 - 0.5 % 04/11/2025 4:02 AM EDT [facility] Neutrophils, Absolute 4.69 1.70 - 7.00 10*3/mm3 04/11/2025 4:02 AM EDT [facility] Lymphocytes, Absolute 2.07 0.70 - 3.10 10*3/mm3 04/11/2025 4:02 AM EDT [facility] Monocytes, Absolute 0.73 0.10 - 0.90 10*3/mm3 04/11/2025 4:02 AM EDT [facility] Eosinophils, Absolute 0.32 0.00 - 0.40 10*3/mm3 04/11/2025 4:02 AM EDT [facility] Basophils, Absolute 0.03 0.00 - 0.20 10*3/mm3 04/11/2025 4:02 AM EDT [facility] Immature Grans, Absolute 0.03 0.00 - 0.05 10*3/mm3 04/11/2025 4:02 AM EDT [facility] nRBC 0.0 0.0 - 0.2 /100 WBC 04/11/2025 4:02 AM EDT [facility] Blood Venipuncture / Unknown 04/11/2025 3:40 AM EDT 04/11/2025 3:59 AM EDT us Sushil Dean Jr., MD LAB BLOOD ORDERABLES Fi nal Result [facility]
[address] [place] [address], * (ABNORMAL) Comprehensive Metabolic Panel (04/11/2025 3:40 AM EDT) Only the most recent of2 resultswithin the time period is included. [facility] Glucose 108(H) 65 - 99 mg/dL 04/11/2025 4:19 AM EDT [facility] BUN 12.5 6.0 - 20.0 mg/dL 04/11/2025 4:19 AM [facility] Creatinine 0.68(L) 0.76 - 1.27 mg/dL 04/11/2025 4:19 AM [facility] Sodium 140 136 - 145 mmol/L 04/11/2025 4:19 AM [facility] Potassium 3.8 3.5 - 5.2 mmol/L 04/11/2025 4:19 AM [facility] Chloride 105 98 - 107 mmol/L 04/11/2025 4:19 AM [facility] CO2 28.2 22.0 - 29.0 mmol/L 04/11/2025 4:19 AM [facility] Calcium 8.2(L) 8.6 - 10.5 mg/dL 04/11/2025 4:19 AM [facility] Total Protein 6.1 6.0 - 8.5 g/dL 04/11/2025 4:19 AM [facility] Albumin 3.1(L) 3.5 - 5.2 g/dL 04/11/2025 4:19 AM [facility] ALT (SGPT) 52(H) 1 - 41 U/L 04/11/2025 4:19 AM [facility] AST (SGOT) 40 1 - 40 U/L 04/11/2025 4:19 AM [facility] Alkaline Phosphatase 99 39 - 117 U/L 04/11/2025 4:19 AM [facility] Total Bilirubin 0.2 0.0 - 1.2 mg/dL 04/11/2025 4:19 AM [facility] Globulin 3.0 gm/dL 04/11/2025 4:19 AM [facility] Comment:Calculated Result A/G Ratio 1.0 g/dL 04/11/2025 4:19 AM [facility] BUN/Creatinine Ratio 18.4 7.0 - 25.0 04/11/2025 4:19 AM [facility] Anion Gap 6.8 5.0 - 15.0 mmol/L 04/11/2025 4:19 AM EDT [facility] eGFR 117.5 >60.0 mL/min/1.7 3 04/11/2025 4:19 AM EDT [facility] Blood Venipuncture / Unknown 04/11/2025 3:40 AM EDT 04/11/2025 3:56 AM EDT Narrative [facility] - 04/11/2025 4:19 AM [...] include race as a factor Rosario Hill GEOLOGICAL TECHNICAL OFFICER LAB BLOOD ORDERABLES Final Result [facility]
[address] [place] [address], * Heparin Anti-Xa (04/10/2025 3:46 AM EDT) Only the most recent of13 resultswithin the time period is included. Heparin Anti-Xa (UFH) 0.35 0.30 - 0.70 IU/ml 04/10/2025 4:23 AM EDT [facility] Blood Venipuncture / Unknown 04/10/2025 3:46 AM EDT 04/10/2025 3:53 AM EDT Larisa Hamilton [facility] LAB BLOOD ORDERABLES Final R esult [facility]
[address] [place] [address], * (ABNORMAL) Basic Metabolic Panel (04/10/2025 3:46 AM EDT) Only the most recent of6 resultswithin the time period is included. Pathologist [facility] Glucose 125(H) 65 - 99 mg/dL 04/10/2025 [...] 113.2 >60.0 mL/min/1.7 3 04/10/2025 4:20 AM [facility] Blood Venipuncture / Unknown 04/10/2025 3:46 AM EDT 04/10/2025 3:52 AM EDT [facility] - 04/10/2025 4:20 AM [...] Final Resul t Performing Organization Address City/[facility] Co de Phone Number [facility]
[address] [place] [address], * Wound Culture - Swab, Leg, Right (04/08/2025 3:40 PM EDT) Only the most recent of3 resultswithin the time period is included. Wound Culture No growth at 3 days ALIZA 04/11/2025 10:40 AM EDT [facility] Gram Stain Few (2+) WBCs seen 04/11/2025 10:40 AM EDT [facility] Gram Stain No organisms seen 04/11/2025 10:40 AM EDT [facility] Swab Structure of right lower limb / Unknown 04/08/2025 3:40 PM EDT 04/08/2025 8:05 PM EDT Sushil Dean Jr., MD MICROBIOLOGY - GENERAL ORDERABLES Final Result Performing Organization Address [facility] Co de Phone Number [facility]
[address] [place] [address], [facility]
[address] [place] [address], * Anaerobic Culture - Swab, Leg, Right (04/08/2025 3:40 PM EDT) Only the most recent of4 resultswithin the time period is included. Anaerobic Culture No anaerobes isolated at 5 days ALIZA 04/13/2025 7:24 AM EDT [facility] Swab Structure of right lower limb / Unknown 04/08/2025 3:40 PM EDT 04/08/2025 8:05 PM EDT Sushil Dean Jr., MD MICROBIOLOGY - GENERAL ORDERABLES Final Result Performing Organization Address City/[facility] Co de Phone Number [facility]
[address] [place] [address], * Scan Slide (04/08/2025 8:41 AM EDT) [...] esult Performing Organization Address [facility] Co de Phone Number [facility]
[address] [place] [address], * FL C Arm During Surgery (04/07/2025 9:32 PM EDT) Narrative SYSTEMGENERATED, DOCUMENTATION - 04/07/2025 9:38 PM EDT This procedure was auto-finalized with no dictation required. Sushil Dean Jr., MD IMG FLUOROSCOPY ORDERAB LES Final Result * Tissue / Bone Culture - Tissue, Leg, Right (04/07/2025 9:13 PM EDT) Tissue Culture No growth at 3 days ALIZA 04/11/2025 10:36 AM EDT [facility] Gram Stain Rare (1+) WBCs seen 04/11/2025 10:36 AM EDT [facility] Gram Stain No organisms seen 04/11/2025 10:36 AM EDT [facility] Tissue Structure of right lower limb / Unknown 04/07/2025 9:13 PM EDT 04/08/2025 4:54 AM EDT us Sushil Dean Jr., MD MICROBIOLOGY - GENERAL ORDERABLES Final Result [facility]
[address] [place] [address], [place] [phone] [facility]
[address] [place] [address], [place] [phone] * BH AN ETT AIRWAY (04/07/2025 8:44 [...] [place] 04/07/2025 9:58 AM EDT Workstation ID: [id number] Narrative 04/07/2025 9:58 AM EDT MRI TIBIA [...] [place] 04/07/2025 9:58 AM EDT Workstation ID: [id number] us Sushil Dean Jr., MD IM MRI ORDERABLES Mary Beth l Result * Potassium (04/06/2025 7:16 PM EDT) Potassium 4.0 3.5 - 5.2 mmol/L 04/06/2025 7:53 PM EDT [facility] Blood Venipuncture / Unknown 04/06/2025 7:16 PM EDT 04/06/2025 7:35 PM EDT Jason Álvarez DO LAB BLOOD ORDERABLES Final Resul t Performing Organization Address City/[facility]/ZIP Co de Phone Number [facility]
[address] [place] [address], * CK (04/05/2025 12:15 PM EDT) Creatine Kinase 140 20 - 200 U/L 04/05/2025 1:31 PM EDT [facility] Blood Venipuncture / Unknown 04/05/2025 12:15 PM EDT 04/05/2025 1:03 PM EDT Carlton Mead MD LAB BLOOD ORDERABLES Final R esult Performing Organization Address [facility] Co de Phone Number [facility]
[address] [place] [address], * (ABNORMAL) aPTT (04/05/2025 3:54 AM EDT) [...] esult Performing Organization Address [facility] Co de Phone Number [facility]
[address] [place] [address], * (ABNORMAL) Protime-INR (04/05/2025 12:18 AM EDT) [facility] Protime 15.9(H) 12.2 - 15.3 Seconds 04/05/2025 12:53 AM EDT [facility] INR 1.19(H) 0.89 - 1.12 04/05/2025 12:53 AM EDT [facility] Blood Venipuncture / Unknown 04/05/2025 12:18 AM EDT 04/05/2025 12:37 AM EDT Una Perla PharmD LAB BLOOD ORDERABLES Final R esult Performing Organization Address [facility] Co de Phone Number [facility]
[address] [place] [address], * POC Creatinine (04/04/2025 2:49 PM EDT) [facility] Creatinine 1.10 0.60 - 1.30 mg/dL 04/07/2025 7:14 PM EDT [facility] Comment:Serial Number: [id number] 7Operator: [id number] Venous Blood 04/04/2025 2:49 PM EDT 04/07/2025 7:14 PM EDT Jason Álvarez DO POINT OF CARE TEST ORDERABLES Fi nal Result Performing Organization Address [facility] Co de Phone Number [facility]
[address] [place] [address], * (ABNORMAL) Sedimentation Rate (04/04/2025 2:47 PM EDT) [facility] Sed Rate 51(H) 0 - 15 mm/hr 04/04/2025 3:06 PM EDT [facility] Blood Venipuncture / Unknown 04/04/2025 2:47 PM EDT 04/04/2025 2:52 PM EDT Mario Ortiz [facility] LAB BLOOD ORDERABLES Fin al Result Performing Organization Address City/[facility]/ZIP Co de Phone Number [facility]
[address] [place] [address], * (ABNORMAL) C-reactive Protein (04/04/2025 2:47 PM EDT) C-Reactive Protein 8.57(H) 0.00 - 0.50 mg/dL 04/04/2025 3:26 PM EDT [facility] Blood Venipuncture / Unknown 04/04/2025 2:47 PM EDT 04/04/2025 2:52 PM EDT [facility] BLOOD ORDERABLES Fin al Result Performing Organization Address City/[facility] de Phone Number [facility]
[address] [place] [address], from Last 3 Months Additional Health Concerns [...] Of Support Discussed With: Patient Care Teams Psychotherapist Relationship Specialty Start Date End Date Provider, [place] [address] PCP - General 05/09/23
--- OUTSIDE RECORDS SUMMARY | 2025-05-14 08:26 | XMS_ITS | Encounter Summary ---
Author Organization Healthcare Address [address] [place] [address] Care Team Providers Care Glass Beveler Name Role Phone Unavailable Primary Care Provider Unavailabl e Encounter Details Date Type Department Care Team (Late st Contact Info) Description 05/13/2023 Lab Requisition [facility] [address] [place] [address] Sushil Daen MD [address] [facility] [place] [address] Encounter for general adult medical examination without [...] O RDERABLES Final Result Performing Organization Address [facility] Co de Phone Number [facility] [address] [place] [address] * Anaerobic Culture (05/13/2023 9:17 AM EDT) Culture No growth at day 4 05/20/2023 10:35 AM EST [facility] Bone 05/13/2023 9:17 AM EDT 05/13/2023 1:25 PM EDT us Sushil Dean MD LAB MICROBIOLOGY - GENERAL O RDERABLES Final Result Performing Organization Address [facility] de Phone Number [facility] [address] [place] [address] * Bone Culture and Gram Stain (05/13/2023 [...] O RDERABLES Final Result Performing Organization Address [facility] de Phone Number [facility] [address] [place] [address] documented in this encounter Visit Diagnoses Diagnosis Encounter for general adult medical examination without abnormal findings documented in this encounter
--- OUTSIDE RECORDS SUMMARY | 2025-05-14 08:26 | XMS_ITS | Encounter Summary ---
Author Organization [facility] Address [address] [place] [address] Care Team Providers Care Frame Coverer Name Role Phone Unavailable Primary Care Provider Unavailabl e Encounter Details Date Type Department Care Team (Late st Contact Info) Description 10/03/2022 Lab Requisition [facility] [address] [place] [address] Dalila Cox MD [address] [place], [place] [id number] Encounter for general adult medical examination without [...] Culture Neelima albicans(A) 10/05/2022 11:58 AM EDT [facility] Comment: This result was determined by MALDI tof Mass spectrometry. This assay was developed and its performance characteristics determined by [facility] as appropriate for clinical purposes. [...] Edited Result - Final [facility] [address] [place] [address] documented in this encounter Visit Diagnoses Diagnosis Encounter for general adult medical examination without abnormal findings documented in this encounter
--- OUTSIDE RECORDS SUMMARY | 2025-05-14 08:26 | XMS_ITS | Encounter Summary ---
Author Organization Healthcare Address [address] [place] [address] Care Team Providers Care Director Of Online Education Name Role Phone Unavailable Primary Care Provider Unavailabl e Encounter Details Date Type Department Care Team (Late st Contact Info) Description 05/17/2023 Lab Requisition [facility] [address] [place] [address] Sushil Dean MD 216 [facility] [address] [place] [address] Encounter for general adult medical examination without [...] Final Result Performing Organization Address City/[facility] Co de Phone Number [facility] [address] [place] [address] * Bone Culture and Gram Stain (05/17/2023 [...] Final Result Performing Organization Address [facility] Co de Phone Number [facility] [address] [place] [address] documented in this encounter Visit Diagnoses Diagnosis Encounter for general adult medical examination without abnormal findings documented in this encounter
--- OUTSIDE RECORDS SUMMARY | 2025-05-14 08:26 | XMS_ITS | Encounter Summary ---
Author Organization [facility] Address [address] [place] [address] Care Team Providers Care Laborer Wharf Name Role Phone Provider, No Known Primary [...] 2:25 PM EDT Cherri Grimm RN * [place] Suicide Severity Rating Scale (Screener/Recent Self-Report) Question [...] documented as of this encounter Care Teams Laborer Wharf Relationship Specialty Start Date End Date Provider, No Known [facility] [place] [address] PCP - General 05/09/23 documented as of this encounter
--- OUTSIDE RECORDS SUMMARY | 2025-05-14 08:26 | XMS_ITS | Encounter Summary ---
Author Organization Healthcare Address [address] [place] [address] Care Team Providers Care Glove Examiner Name Role Phone Unavailable Primary Care Provider Unavailabl e Encounter Details Date Type Department Care Team (Late st Contact Info) Description 07/20/2022 Lab Requisition [facility] [address] [place] [address] Sushil Dean MD [address] [place] [address] Encounter for general adult medical examination without [...] at day 4 07/27/2022 11:32 AM EST [facility] Bone Specimen from bone / Unknown 07/20/2022 1:36 PM EST 07/20/2022 5:52 PM EST us Sushil Dean MD LAB MICROBIOLOGY - GENERAL O RDERABLES Final Result Performing Organization Address City/[facility] Co de Phone Number [facility]ALTHCARE [facility] [address] [place] [address] * Bone Culture and Gram Stain (07/20/2022 1:36 PM EST) Culture No growth at day 4 2022 9:16 AM EST [facility] Gram Stain Result Rare Polymorphonuclear leukocytes 07/24/2022 9:16 AM EST [facility] Gram Stain Result No organisms seen 07/24/2022 9:16 AM EST [facility] Bone Specimen from bone / Unknown 07/20/2022 1:36 PM EST 07/20/2022 5:52 PM EST us Sushil Dean MD LAB MICROBIOLOGY - GENERAL O RDERABLES Final Result Performing Organization Address City/[facility] Co de Phone Number [facility] [address] [place] [address] documented in this encounter Visit Diagnoses Diagnosis Encounter for general adult medical examination without abnormal findings documented in this encounter
--- OUTSIDE RECORDS SUMMARY | 2025-05-14 08:26 | XMS_ITS | Clinical Summary ---
Author Organization Healthcare Address [address] [place] [address] Care Team Providers Care Manager Drive Name Role Phone Unavailable Primary Care Provider [...]
--- OUTSIDE RECORDS SUMMARY | 2025-05-14 08:26 | XMS_ITS | Encounter Summary ---
Author Organization Healthcare Address [address] [place] [address] Care Team Providers Care Control Integration Engineer Name Role Phone Unavailable Primary Care Provider Unavailabl e Encounter Details Date Type Department Care Team (Late st Contact Info) Description 07/20/2022 Lab Requisition [facility] [address] [place] [address] Sushil Dean MD [address] [place] [address] Encounter for general adult medical examination without [...]
--- OUTSIDE RECORDS SUMMARY | 2025-05-14 08:26 | XMS_ITS | Encounter Summary ---
Author Organization Healthcare Address [address] [place] [address] Care Team Providers Care Inbound Sales Manager Name Role Phone Unavailable Primary Care Provider Unavailabl e Encounter Details Date Type Department Care Team (Late st Contact Info) Description 10/01/2022 Lab Requisition [facility] [address] [place] [address] Sushil Dean MD [address] [facility] [address] [place] [address] Encounter for general adult medical examination without [...] has been identified using the FDA Approved Nexessyper [place] System The organism value for this [...] 10/04/2022 2:17 PM EDT Refer to culture [id number] FOR SUSCEPTIBILITIES ON NEELIMA ALBICANS us Sushil Dean MD LAB MICROBIOLOGY - GENERAL O RDERABLES Final Result [facility] [address] [place] [address] documented in this encounter Visit Diagnoses Diagnosis Encounter for general adult medical examination without abnormal findings documented in this encounter
--- OUTSIDE RECORDS SUMMARY | 2025-05-14 08:26 | XMS_ITS | Encounter Summary ---
Author Organization Healthcare Address [address] [place] [address] Care Team Providers Care Pin Ball Machine Mechanic Name Role Phone Unavailable Primary Care Provider Unavailabl e Encounter Details Date Type Department Care Team (Late st Contact Info) Description 08/12/2022 Lab Requisition [facility] [address] [place] [address] Sushil Dean MD [address] [place] [address] Encounter for general adult medical examination without [...] has been identified using the FDA Approved Kidboxer CA System The organism value for this [...] O ERIC Final Result Performing Organization Address City/[facility] de Phone Number [facility]ALTH[facility]ARE [facility] [address] [place] [address] * Bone Culture and Gram Stain (08/12/2022 [...] RDERABLES Final Result Performing Organization Address City/[facility] de Phone Number [facility] [address] [place] [address] documented in this encounter Visit Diagnoses Diagnosis Encounter for general adult medical examination without abnormal findings documented in this encounter
--- OUTSIDE RECORDS SUMMARY | 2025-05-14 08:26 | XMS_ITS | Encounter Summary ---
Author Organization Healthcare Address [address] [place] [address] Care Team Providers Care Precipitator Name Role Phone Unavailable Primary Care Provider Unavailabl e Encounter Details Date Type Department Care Team (Late st Contact Info) Description 10/19/2022 Lab Requisition [facility] [address] [place] [address] Sushil Dean MD [address] [place] [address] Encounter for general adult medical examination without [...] by MALDI tof mass spectrometry using the [employer] database and is for research use only. The organism value for this result has been updated. These results have been appended to the previously preliminary verified report. Bone Specimen from bone / Unknown 10/19/2022 5:17 PM EDT 10/19/2022 9:49 PM EDT Sushil Dean MD LAB MICROBIOLOGY - GENERAL O RDERABLES Final Result Performing Organization Address [facility] de Phone Number [facility]ALTH[facility]ARE [facility] [address] [place] [address] * Bone Culture and Gram Stain (10/19/2022 5:17 PM EDT) Culture No growth at day 4 2022 8:14 AM EDT [facility] Gram Stain Result Few Polymorphonuclear leukocytes 10/23/2022 8:14 AM EDT [facility] Gram Stain Result No organisms seen 10/23/2022 8:14 AM EDT [facility] Bone Specimen from bone / Unknown 10/19/2022 5:17 PM EDT 10/19/2022 9:49 PM EDT Sushil Dean MD LAB MICROBIOLOGY - GENERAL O RDERAADDI Final Result Performing Organization Address [facility] Phone Number [facility] [address] [place] [address] documented in this encounter Visit Diagnoses Diagnosis Encounter for general adult medical examination without abnormal findings documented in this encounter
[2025-05-14 09:15] VITALS: BP 127/80; PULSE 73; RESP 20; O2SAT 96
== END 2025-05-14 23:59 | disposition home or self-care (01) ==
LOC: INF 08:17
PROVIDERS: PCP Nurse Practitioner Family; Visit Provider Internal Medicine Infectious Disease
DX: L03.115 Cellulitis of right lower limb (principal); L02.415 Cutaneous abscess of right lower limb; L30.9 Dermatitis, unspecified; D68.2 Hereditary deficiency of other clotting factors; I10 Essential (primary) hypertension; E78.5 Hyperlipidemia, unspecified; F39 Unspecified mood [affective] disorder
CPT/HCPCS: 96365; J0878

== ENCOUNTER 2025-05-15 08:24 | Outpatient (CLI) | payer MEDICARE, SELFPAY ==
--- OUTSIDE RECORDS SUMMARY | 2023-12-12 04:00 | XMS_ITS ---
Author Organization [facility] Address 1210 [facility] 36 [facility] 2C YVON Sykes [phone] Care Team Providers Care Factory Machine Computer Operator Name Role Phone Zeeshan Salazar Primary Care Provider [phone] Macario Burkett [phone] REASON FOR VISIT 6 Month Check Up Encounters Encounter Location Date Provider Diagnosis [facility] 12[address] [facility] [address] Y[place] Sykes [phone] 12/12/2023 Macario Burkett Plan Of Treatment No Information Progress Notes * Won MEDRANO ZeeshanDOB: [birth year] (44 yo M)Acc No.[id number]:12/12/2023 Progress Notes Patient: Won SPANN Provider: Colleen Burkett M.D. :1980 A ge:43 Y S ex:Male Date:12/12/2023 Address:[address] [place] [address] Onel THACKER [id number] Pcp:Zeeshan Salazar Subjective: * Chief Complaints: * 1 . 6 Month Check Up. * Medical History: Objective: * Vitals: Assessment: Plan: * Treatment: * Images: Billing Information: * Visit Code: * Procedure Codes: * Electronic signature of Micaela Burkett MD on 05/15/2025 at 08:28 AM EST Sign off status: Pending * Provider: Colleen Burkett M.D. Date: 12/12/2023 Generated for Nany jorgensen/Elaine/Lisbethitting on: 07/15/2024 08:28 AM EST
--- OUTSIDE RECORDS SUMMARY | 2025-04-04 15:10 | XMS_ITS | Encounter Summary ---
Author Organization [facility] Address [address] [place] [address] Care Team Providers Care Control Cabinet Assembler Name Role Phone Provider, No Known Primary Care Provider Unavail able Reason for Visit * Reason Comments Leg Swelling * Auth/Cert Specialty Diagnoses / Procedures Referred By Contlevy t Referred To Contact Diagnoses Right BKA infection Referral ID Status Reason Start Date Expiration Date Visits Re quested Visits Authorized [id number] 1 1 Encounter Details Date Type Department Care Team (Late st Contact Info) Description 04/04/2025 4:10 PM EDT - 04/11/2025 1:58 PM EDT Hospital Encounter [address] [place] [address] Mario Crowley, [address] [place] [address] Leonora Shepherd MD [address] [address] Jason Álvarez DO [address] [address] Jadyn Richardson DO [address] [address] Cellulitis of right lower extremity (Primary Dx); Below-knee amputation of right lower extremity, initial encounter; Right BKA infection Discharge Disposition: Home or Self Care Social History Tobacco Use Types Packs/Day Years Used Date Smoking Tobacco: Never Smokeless Tobacco: Never Tobacco Cessation:Counseling Given: Not Answered Alcohol Use Standard Drinks/Week Comments Not Currently 0 (1 standard drink = 0.6 oz pur e alcohol) [facility] Utilities Answer Date Recorded In the past 12 months has th e If You Can, gas, oil, or water company threatened to [...] or training? Not on file Preferred Language Central African 04/07/2025 Sex and Gender Information Value Date [...] 2:25 PM EDT Cherri Grimm RN * [place] Suicide Severity Rating Scale (Screener/Recent Self-Report) Question [...] from the original note were not included. [facility] Medicine Services DISCHARGE SUMMARY Patient Name: [...] Date/Time Wound Culture - Swab, Leg, Right [[id number]] (Abnormal) (Susceptibility) Collected: 04/07/252106 Lab Status: Final [...] Units Date/Time FL C Arm During Surgery [[id number]] Resulted: 04/07/252137 Updated: 04/07/252137 Narrative: This procedure was auto-finalized with no dictation required. MRI Tibia Fibula Right With & Without Contrast [[id number]] Collected: 04/07/25 0938 Updated: 04/07/25 1001 Narrative: [...] Buenrostro 04/07/2025 9:58 AM EDT Workstation ID: [id number] MRI Tibia Fibula Right With & Without Contrast [[id number]] Collected: 04/04/252256 Updated: 04/04/252302 Narrative: MRI TIBIA [...] represent a small area of phlegmonous change (hohzkv76 image 10) measuring approximately 1.6 cm which [...] MD 04/04/2025 11:00 PM EDT Workstation ID: [id number] Pending Labs Order Current Status Fungus Culture [...] FLOMAX 1 capsule, Nightly Stop These Medications [facility] capsule doxycycline 100 MG tablet Commonly known [...] Male) Date of 1980 Social Security Number [id number] [place] [address] Anabaptism Unknown Marital Status Unknown Admission Date 04/04/2025 Admission Type Emergency Admitting Provider Jadyn Richardson DO Attending Provider Jadyn Richardson DO Department, Room/Bed [address], S565/1 Discharge Date Discharge Disposition Discharge [...] Group [place] [id number] Payor Plan Address Payor Plan Phone Number Payor Plan Fax Number Effective Dates [employer] [address] [address] 08/10/2023 - None Entered [place] [address] Subscriber Name Subscriber Date Member ID WON DENNIS 1980 [id number] Emergency Contacts Overnight Babysitter (Rel.) Home Phone Work Phone Mobile Phone Avril Dennis (Spouse) -- -- [phone] LewRobert (Relative) -- -- [phone] [place] [facility] [address] Patient: ROOM: [facility] Won Dennis [address] [place] [address] : 1980 SSN: [id number] Sex: M PCP: Provider, No Known Emergency Contact Information Name Relation Home Work Mobile Avril Dennis Spouse [phone] Other Contacts Name Relation Home Work Mobile Robert Hackett Relative [phone] INSURANCE PAYOR [employer]AN [employer] # SUBSCRIBER ID Primary: Secondary: MEDICARE [employer] MEDICAID [place] [id number] Admitting Diagnosis: 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] Order Date: Apr 09, 2025 Case Management Holter Scanning Technician Consult (Order ID: [id number]) Diagnosis: Priority: Routine Expected Date: Expiration Date: Interval: Once Count: Comments: Outpatient orders: 1. Outpatient intravenous antibiotic therapy: Daptomycin 800 mg IV daily to be supplied by [facility] 2. Home health to perform [...] INFECTIOUS DISEASE Progress Note Won Dennis 1980 [id number] Date of Consult: 04/10/2025 Admission Date: 04/04/2025 [...] which prompted him to seek treatment at [facility]. He is known to Dr. Dean. [...] wound 05/09/25. HDS, on Heparin gtt. Currently [facility] has been asked to manage the antimicrobials [...] Jr., MD, 20 mg at 04/09/25906 heparin 25235 units/250 mL (100 units/mL) in 0.45 % [...] Units Date/Time FL C Arm During Surgery [[id number]] Resulted: 04/07/252137 Updated: 04/07/252137 Narrative: This procedure was auto-finalized with no dictation required. MRI Tibia Fibula Right With & Without Contrast [[id number]] Collected: 04/07/25 0938 Updated: 04/07/25 1001 Narrative: [...] Chitra 04/07/2025 9:58 AM EDT Workstation ID: [id number] Impression: Recurrent Right BKA stump abscess/cellulitis- this [...] discussed [facility]. I will sign off Outpatient orders: 1. Outpatient intravenous antibiotic therapy: Daptomycin 800 mg IV daily to be supplied by [facility] 2. Home health to perform weekly PICC [...] Time: 04/10/251323 Signed Expand All Collapse All [facility] Medicine Services PROGRESS NOTE Patient Name: [...] Date/Time Wound Culture - Swab, Leg, Right [[id number]] (Abnormal) (Susceptibility) Collected: 04/07/252106 Lab Status: Final [...] Row Name 04/06/25 1143 Sit-Stand Transfer Sit-Stand Dukes (Transfers) modified independence -LM Comment, (Sit-Stand Transfer) Pt stood from recliner. Not holding onto walker, pt able to pull his pants up while balancing on his one leg. -LM Row Name 04/06/25 1143 Gait/Stairs (Locomotion) Dukes Level (Gait) modified independence -LM Distance in [...] Nurse Physical Therapy Education Title: PT OT COUNTER DISH CARRIER Therapies (Done) Topic: Physical Therapy (Done) Point: [...] Description Service Date Service Provider Modifiers Qty [id number] PT EVAL LOW COMPLEXITY 3 04/06/2025 Susan [...] mg Daily 04/05/2025 -- Route: Oral heparin 28008 units/250 mL (100 units/mL) in 0.45 % [...] -- Admin Instructions: Open Order & Select [facility] Electrolyte Replacement Protocol Algorithm to View [...] Dean MD April 21 vs April 22 [facility] [address], [address] [facility], [address] Please schedule at [phone] VONDA Garcia 04/11/25 08:32 EDT Cosigned by Sushil Dean Jr., MD at 04/19/2025 10:33 AM EDT Associated attestation - Sushil Dean Jr., MD - 04/19/2025 10:33 AM EDT I have reviewed this documentation and agree. * Rosario Hill APRN - 04/10/2025 1:24 PM EDT Images from the original note were not included. [facility] Medicine Services PROGRESS NOTE Patient Name: [...] Date/Time Wound Culture - Swab, Leg, Right [[id number]] (Abnormal) (Susceptibility) Collected: 04/07/252106 Lab Status: Final [...] mg Daily 04/05/2025 -- Route: Oral heparin 54321 units/250 mL (100 units/mL) in 0.45 % [...] -- Admin Instructions: Open Order & Select [facility] Electrolyte Replacement Protocol Algorithm to View [...] -- Admin Instructions: Open Order & Select [facility] Electrolyte Replacement Protocol Algorithm to View [...] -- Admin Instructions: Open Order & Select [facility] Electrolyte Replacement Protocol Algorithm to View [...] Dean MD April 21 vs April 22 [facility] [address], [address] [facility], [address] Please schedule at [phone] VONDA Garcia 04/10/25 09:01 EDT Cosigned by Sushil Dean Jr., MD at 04/19/2025 10:33 AM EDT Associated attestation - Sushil Dean Jr., MD - 04/19/2025 10:33 AM EDT I have reviewed this documentation and agree. * Carlton Mead MD - 04/10/2025 7:38 AM EDT Images from the original note were not included. INFECTIOUS DISEASE Progress Note Won Dennis 1980 [id number] Date of Consult: 04/10/2025 Admission Date: 04/04/2025 [...] which prompted him to seek treatment at [facility]. He is known to Dr. Dean. [...] wound 05/09/25. HDS, on Heparin gtt. Currently [facility] has been asked to manage the antimicrobials [...] Procedure: WOUND VACUUM ASSISTED CLOSURE; Surgeon: Sushil Dena Jr., MD; Location: [facility]; Service: Orthopedics; [...] Jr., MD, 20 mg at 04/09/25906 heparin 46930 units/250 mL (100 units/mL) in 0.45 % [...] injection 15 mg, 15 mg, Intravenous, Once, Monsiha Jones APRN Magnesium Standard Dose Replacement - [...] vancomycin 2750 mg/500 mL 0.9% NS IVPB ([facility]) Ordering Provider: Mario Crowley, DO 20 [...] Units Date/Time FL C Arm During Surgery [[id number]] Resulted: 04/07/252137 Updated: 04/07/252137 Narrative: This procedure was auto-finalized with no dictation required. MRI Tibia Fibula Right With & Without Contrast [[id number]] Collected: 04/07/25 0938 Updated: 04/07/25 1001 Narrative: [...] Buenrostro 04/07/2025 9:58 AM EDT Workstation ID: [id number] Impression: Recurrent Right BKA stump abscess/cellulitis- this [...] discussed his disposition with the [facility]ist [facility] today. I will sign off Outpatient orders: 1. Outpatient intravenous antibiotic therapy: Daptomycin 800 mg IV daily to be supplied by [facility] 2. Home health to perform weekly PICC [...] MD 04/10/2025 07:38 EDT * Yaya Hamiltonn, [facility] - 04/10/2025 7:17 AM EDT Pharmacy [...] from the original note were not included. [facility] Medicine Services PROGRESS NOTE Patient Name: [...] Date/Time Wound Culture - Swab, Leg, Right [[id number]] (Abnormal) Collected: 04/07/252106 Lab Status: Preliminary result [...] Jason DO Preeti 04/09/25 * Larisa Hamilton [facility] - 04/09/2025 11:36 AM EDT Pharmacy [...] mg Daily 04/05/2025 -- Route: Oral heparin 14891 units/250 mL (100 units/mL) in 0.45 % [...] -- Admin Instructions: Open Order & Select [facility] Electrolyte Replacement Protocol Algorithm to View [...] -- Admin Instructions: Open Order & Select [facility] Electrolyte Replacement Protocol Algorithm to View [...] -- Admin Instructions: Open Order & Select [facility] Electrolyte Replacement Protocol Algorithm to View [...] in 2 weeks for incision check, radiographs [facility] [address], [address] [facility], [address] Please schedule at [phone] VONDA Garcia 04/09/25 09:18 EDT Cosigned by Sushil Dean Jr., MD at 04/19/2025 10:33 AM EDT Associated attestation - Sushil Dean Jr., MD - 04/19/2025 10:33 AM EDT I have reviewed this documentation and agree. * Carlton Mead MD - 04/09/2025 8:25 AM EDT Images from the original note were not included. INFECTIOUS DISEASE Progress Note Won Dennis 1980 [id number] Date of Consult: 04/09/2025 Admission Date: 04/04/2025 [...] which prompted him to seek treatment at [facility]. He is known to Dr. Dean. [...] wound 05/09/25. HDS, on Heparin gtt. Currently [facility] has been asked to manage the antimicrobials [...] IRRIGATION; Surgeon: Sushil Dean Jr., MD; Location: [facility] OR; Service: Orthopedics; Laterality: Right; PLACEMENT OF WOUND VAC Right 04/07/2025 Procedure: WOUND VACUUM ASSISTED CLOSURE; Surgeon: Sushil Dean Jr., MD; Location: [facility] OR; Service: Orthopedics; Laterality: Right; History reviewed. [...] MD, 20 mg at 04/08/25 0800 heparin 26899 units/250 mL (100 units/mL) in 0.45 % [...] Units Date/Time FL C Arm During Surgery [[id number]] Resulted: 04/07/252137 Updated: 04/07/252137 Narrative: This procedure was auto-finalized with no dictation required. MRI Tibia Fibula Right With & Without Contrast [[id number]] Collected: 04/07/2538 Updated: 04/07/25 1001 Narrative: MRI [...] Buenrostro 04/07/2025 9:58 AM EDT Workstation ID: [id number] Impression: Recurrent Right BKA stump abscess/cellulitis- this [...] mg IV daily to be supplied by [facility] 2. Home health to perform [...] from the original note were not included. [facility] Medicine Services PROGRESS NOTE Patient Name: [...] Buenrostro 04/07/2025 9:58 AM EDT Workstation ID: [id number] I have personally reviewed the therapy plans: [...] Jason Álvarez DO 04/08/25 * Larisa Hamilton [facility] - 04/08/2025 11:48 AM EDT Pharmacy [...] -- Admin Instructions: Open Order & Select [facility] Electrolyte Replacement Protocol Algorithm to View [...] mg Daily 04/05/2025 -- Route: Oral heparin 07174 units/250 mL (100 units/mL) in 0.45 % [...] -- Admin Instructions: Open Order & Select [facility] Electrolyte Replacement Protocol Algorithm to View [...] -- Admin Instructions: Open Order & Select [facility] Electrolyte Replacement Protocol Algorithm to View [...] -- Admin Instructions: Open Order & Select [facility] Electrolyte Replacement Protocol Algorithm to View [...] INFECTIOUS DISEASE Progress Note Won Dennis 1980 [id number] Date of Consult: 04/08/2025 Admission Date: 04/04/2025 [...] which prompted him to seek treatment at [facility]. He is known to Dr. Dean. [...] wound 05/09/25. HDS, on Heparin gtt. Currently [facility] has been asked to manage the antimicrobials [...] IRRIGATION; Surgeon: Sushil Dean Jr., MD; Location: [facility] OR; Service: Orthopedics; Laterality: Right; PLACEMENT OF WOUND VAC Right 04/07/2025 Procedure: WOUND VACUUM ASSISTED CLOSURE; Surgeon: Sushil Dean Jr., MD; Location: [facility] OR; Service: Orthopedics; Laterality: Right; History reviewed. [...] Jr., MD, 20 mg at 04/07/25950 heparin 94810 units/250 mL (100 units/mL) in 0.45 % NaCl infusion, 18 Units/kg/hr, Intravenous, Titrated, Sushil Dean Jr., MD, Last Rate: 24.1 mL/hr at 04/07/252333, 18 Units/kg/hr at hydroCHLOROthiazide tablet 12.5 mg, 12.5 mg, Oral, Daily, Ssuhil Dean Jr., MD, 12.5 mg at 04/07/25950 HYDROmorphone (DILAUDID) injection 0.5 mg, 0.5 mg, Intravenous, Q2H PRN, Sushil eDan Jr., MD,0.5 mg at 04/08/25 06 HYDROmorphone [...] Units Date/Time FL C Arm During Surgery [[id number]] Resulted: 04/07/252137 Updated: 04/07/252137 Narrative: This procedure was auto-finalized with no dictation required. MRI Tibia Fibula Right With & Without Contrast [[id number]] Collected: 04/07/2538 Updated: 04/07/25 1001 Narrative: MRI [...] Buenrostro 04/07/2025 9:58 AM EDT Workstation ID: [id number] Impression: 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 (Treated by ID in [facility] Dr. Harris). Dr. Torres treated him with [...] from the original note were not included. [facility] Medicine Services PROGRESS NOTE Patient Name: [...] Buenrostro 04/07/2025 9:58 AM EDT Workstation ID: [id number] I have personally reviewed the therapy plans: [...] Jason Álvarez DO 04/07/25 * Larisa Hamilton [facility] - 04/07/2025 11:56 AM EDT Pharmacy [...] INFECTIOUS DISEASE Progress Note Won Dennis 1980 [id number] Date of Consult: 04/07/2025 Admission Date: 04/04/2025 [...] which prompted him to seek treatment at [facility]. He is known to Dr. Dean. [...] wound 05/09/25. HDS, on Heparin gtt. Currently [facility] has been asked to manage the antimicrobials [...] Application, 1 Application, Topical, Q12H, Ayah Valentin, EMISSIONS TESTING TECHNICIAN, 1 Application at 04/06/252101 DAPTOmycin (CUBICIN) 800 [...] Shepherd MD, 20 mg at 04/06/25899 heparin 26479 units/250 mL (100 units/mL) in 0.45 % NaCl infusion, 18 Units/kg/hr, Intravenous, Titrated, Cherri Beatty, [facility], Last Rate: 24.1 mL/hr at 04/07/258, [...] With & Without Contrast - In process [[id number]] Resulted: 04/07/25828 Updated: 04/07/25828 This result has not been signed. Information might be incomplete. MRI Tibia Fibula Right With & Without Contrast [[id number]] Collected: 04/04/252256 Updated: 04/04/252302 Narrative: MRI TIBIA [...] represent a small area of phlegmonous change (ipfeex34 image 10) measuring approximately 1.6 cm which [...] MD 04/04/2025 11:00 PM EDT Workstation ID: [id number] Impression: 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 (Treated by ID in [facility] Harris). Dr. Torres treated him with [...] mg Daily 04/05/2025 -- Route: Oral heparin 39945 units/250 mL (100 units/mL) in 0.45 % [...] -- Admin Instructions: Open Order & Select [facility] Electrolyte Replacement Protocol Algorithm to View [...] -- Admin Instructions: Open Order & Select [facility] Electrolyte Replacement Protocol Algorithm to View [...] MD 04/07/25 06:07 EDT * Cherri Beatty [facility] - 04/06/2025 1:47 PM EDT Pharmacy [...] from the original note were not included. [facility] Medicine Services PROGRESS NOTE Patient Name: [...] MD 04/04/2025 11:00 PM EDT Workstation ID: [id number] I have personally reviewed the therapy plans: [...] note were not included. Won Dennis LOS: 2 days Patient Care Team: Provider, [...] mg Daily 04/05/2025 -- Route: Oral heparin 07384 units/250 mL (100 units/mL) in 0.45 % [...] -- Admin Instructions: Open Order & Select [facility] Electrolyte Replacement Protocol Algorithm to View [...] INFECTIOUS DISEASE follow up. Won Dennis 1980 [id number] Date of Consult: 04/06/2025 Admission Date: 04/04/2025 [...] which prompted him to seek treatment at [facility]. He is known to Dr. Dean. [...] wound 05/09/25. HDS, on Heparin gtt. Currently [facility] has been asked to manage the antimicrobials [...] Application, 1 Application, Topical, Q12H, Ayah Valentin, EMISSIONS TESTING TECHNICIAN, 1 Application at 04/06/25 0859 DAPTOmycin (CUBICIN) [...] MD, 20 mg at 04/06/25 0900 heparin 18583 units/250 mL (100 units/mL) in 0.45 % NaCl infusion, 18 Units/kg/hr, Intravenous, Titrated, Cherri Beatty [facility], Last Rate: 24.1 mL/hr at 04/06/25 [...] Tibia Fibula Right With & Without Contrast [[id number]] Collected: 04/04/252256 Updated: 04/04/252302 Narrative: MRI TIBIA [...] represent a small area of phlegmonous change (nfmapf86 image 10) measuring approximately 1.6 cm which [...] MD 04/04/2025 11:00 PM EDT Workstation ID: [id number] Impression: 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 (Treated by ID in [facility] Harris). Dr. Torres treated him with [...] MD 04/06/2025 16:00 EDT * Cherri Beatty, [facility] - 04/05/2025 3:01 PM EDT Pharmacy [...] from the original note were not included. [facility] Services PROGRESS NOTE Patient Name: [...] MD 04/04/2025 11:00 PM EDT Workstation ID: [id number] I have personally reviewed the therapy plans: [...] from the original note were not included. [facility] Medicine Services HISTORY AND PHYSICAL Patient [...] MD 04/04/2025 11:00 PM EDT Workstation ID: [id number] Assessment & Plan Assessment & Plan Won [...] 4FR PICC placed by Rhoda Bonner RN [facility], tip verified by 3CG see LDA. * Sushil Dean Jr., MD - 04/05/2025 8:07 AM EDTAssociated Order(s): IP CONSULT TO ORTHOPEDIC SURGERY [facility], [facility] [address] [place] [address] Orthopedic Consult Patient: Won Dennis Date of Admission: 04/04/2025 4:10 PM Date of : 1980 Attending Physician: Jason Álvarez DO Consulting Physician: Sushil Dean Jr, MD Chief Complaint: 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 male admitted to [facility] with 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]. He has [...] was evaluated in the emergency department in [place], was discharged with instructions for follow-up. He [...] tablet by mouth Daily. 04/03/2025 Morning Lactobacillus-Inulin ([facility] Ziippi) capsule Take 200 mg by mouth Daily. [...] MD 04/04/2025 11:00 PM EDT Workstation ID: [id number] Assessment: Right BKA infection 44-year-old male with [...] DISEASE CONSULT/INITIAL HOSPITAL VISIT Won Dennis 1980 [id number] Date of Consult: 04/05/2025 Admission Date: 04/04/2025 [...] which prompted him to seek treatment at [facility]. He is known to Dr. Dean. [...] wound 05/09/25. HDS, on Heparin gtt. Currently [facility] has been asked to manage the antimicrobials [...] Leonora Shepherd MD, 40 mg at 04/04/25 3749 sennosides-docusate (PERICOLACE) 8.6-50 MG per tablet 2 [...] mL MBP, 2,000 mg, Intravenous, Q24H, Leonora Shepherd MD clotrimazole-betamethasone (LOTRISONE) 1-0.05 % cream 1 Application, 1 Application, Topical, Q12H, Ayah Valentin APRN ferrous sulfate tablet 325 mg, 325 mg, Oral, BID, Leonora Shepherd MD, 325 mg at 04/05/25 0916 furosemide (LASIX) tablet 20 mg, 20 mg, Oral, Daily, Leonora Shepherd MD, 20 mg at 04/05/25 0916 heparin 06893 units/250 mL (100 units/mL) in 0.45 % [...] 10 mL, 10 mL, Intravenous, PRN, Leonora Shehperd MD sodium chloride 0.9 % flush 10 [...] Tibia Fibula Right With & Without Contrast [[id number]] Collected: 04/04/252256 Updated: 04/04/252302 Narrative: MRI TIBIA [...] represent a small area of phlegmonous change (eymjxl86 image 10) measuring approximately 1.6 cm which [...] MD 04/04/2025 11:00 PM EDT Workstation ID: [id number] Impression: 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 (Treated by ID in [facility] Harris). Dr. Torres treated him with [...] Jr., MD - 04/08/2025 3:51 PM EDT [facility] OPERATIVE REPORT PATIENT NAME: Won Dennis DATE OF : 1980 PREOP DIAGNOSIS: Right Right below-knee amputation infection POSTOP DIAGNOSIS: Same. PROCEDURE: Right Right 78897: Secondary closure below-knee amputation SURGEON: Sushil Dean MD OPERATIVE TEAM: Pelletizer Operator: Susi Grullon RN Scrub Person: Mary Paredes Scrub Person Extra: Hortencia Toribio Other: Katt Gotti RN; Charis Neville RN ANESTHETIST: Anesthesiologist: Ulises Hoffman MD MEDICAL EQUIPMENT REPAIRER: Stan Casillas CRNA Student Nurse Fish Straightener: Karol Albert SRNA ANESTHESIA: Choice ESTIMATED BLOOD [...] CULTURE (Canceled) Sushil Dean Jr., MD 04/08/25 4656 Description: RIGHT LEG DEEP WOUND FOR CULTURE [...] Jr., MD - 04/07/2025 9:03 PM EDT [facility] [address] [address] OPERATIVE REPORT PATIENT NAME: Won Dennis DATE OF : 1980 PREOP DIAGNOSIS: Right Right below knee amputation stump infection POSTOP DIAGNOSIS: Same. PROCEDURE: Right Right 93607: Incision and drainage of surgical site infection 47141: Debridement of skin, subcutaneous tissue, muscle 61567: Wound vacuum-assisted closure SURGEON: Sushil Dean MD OPERATIVE TEAM: Pelletizer Operator: Anum Sanchez RN Scrub Person: Hortencia Toribio; Gerald Ivey SHERIFF DEPUTY: Anesthesiologist: Luci Alonso DO ANESTHESIA: General ESTIMATED [...] ago swellling of the area. seen at [facility] yesterday for CT and US, here [...] this chart in the absence of a low vision therapist. No orders to display RADIOLOGY: [x] Radiologist's [...] 04/11/2025 1:30 PM EDT Continued Stay Note [place] Patient Name: Won Dennis Today's Date: 04/11/2025 Admit Date: 04/04/2025 Plan: Home with outpatient infusion. Discharge Plan Row Name 04/11/25 1155 Plan Plan Home with outpatient infusion. Final Discharge Disposition Code 01 - home or self-care Final Note Patient discharging today. He is discharging home with outpatient infusion at [facility]. He has an appointment with [facility] at 8:00 am tomorrow. They will do PICC line dressing changes. DEBRA has spoke with Dena at [facility] today multiple times to get setup due [...] to get IV ABX at home with [facility]; however, Medicaid lapsed on 04/08. DEBRA was unaware until this morning that Medicaid has lapsed. Patient explained that he has Medicare A and B. CM spoke with KELLEE and given themhis Medicare number [id number], she sent it to Admission. DEBRA spoke with Kerri, with [facility], and explained that he had Medicare A and B. However, it will not cover home infusion. It will be $64.00 a day out of packet. Patients can go to the Infusion center at [facility], and it will cover the cost as an outpatient. He will need to go there every day for infusion. They will be able to do the patients' PICC line dressing changes and lab work. CM called Dena [facility] Outpatient infusion center they can accept patient and start him. He is known for their facility. The Facility will need to run it through his insurance first. CM faxed the orders over to [facility] at [phone]. CM will follow up with them tomorrow at [facility] to make sure they received the orders. [...] with patient at bedside today. [email or web address]. Patient getting PICC line [...] note were not included. Discharge Planning Assessment Gila Patient Name: Won Dennis Today's Date: 04/07/2025 [...] with family Patient/Family Anticipated Services at [facility] [employer] Anticipated family or friend will provide Discharge Needs Assessment Equipment Currently Used at Home glucometer;shower chair;pulse ox;bp cuff;prosthesis;crutches Equipment Needed After Discharge none Discharge Plan Row Name 04/07/25 1144 Plan Plan Home Patient/Family in Agreement with Plan yes Plan Comments CM spoke with patient at bedside today. Patient lives with and his 5 kids in [facility]. 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 He has walker, cane, shower chair, and crutches. He requested a wheelchair for home. CM will order wheelchair through [employer]. He is not current with home health services. PCP is Dr. Jordan. Insurance is [facility] Medicaid [place]. Patient discharge plan is home with priavte transport. CM will follow for any discharge needs. Final Discharge Disposition Code 01 - home or self-care Continued Care and Services - Admitted Since 04/04/2025 No active coordination exists. Demographic Summary Row Name 04/07/25 1143 General Information Arrived From hospital Preferred Language Central African Functional Status Row Name 04/07/25 1143 Functional [...] Abuse No documentation. Patient Forms No documentation. Kathy Johnson RN documented in this encounter Plan [...] 3:4 0 PM EDT Right BKA infection NC SEC ABDOMINAL WALL SUTURE EVISCERATION/DEHSN 04/08/2025 3:20 [...] CBC Auto Differential (04/11/2025 3:40 AM EDT) [facility] WBC 7.87 3.40 - 10.80 10*3/mm3 04/11/2025 4:02 AM EDT [facility] RBC 4.70 4.14 - 5.80 10*6/mm3 04/11/2025 4:02 AM EDT [facility] Hemoglobin 12.8(L) 13.0 - 17.7 g/dL 04/11/2025 4:02 AM EDT [facility] Hematocrit 40.5 37.5 - 51.0 % 04/11/2025 4:02 AM EDT [facility] MCV 86.2 79.0 - 97.0 fL 04/11/2025 4:02 AM EDT [facility] MCH 27.2 26.6 - 33.0 pg 04/11/2025 4:02 AM EDT [facility] MCHC 31.6 31.5 - 35.7 g/dL 04/11/2025 4:02 AM EDT [facility] RDW 12.9 12.3 - 15.4 % 04/11/2025 4:02 AM EDT [facility] RDW-SD 40.5 37.0 - 54.0 fl 04/11/2025 4:02 AM EDT [facility] MPV 9.2 6.0 - 12.0 fL 04/11/2025 4:02 AM EDT [facility] Platelets 267 140 - 450 10*3/mm3 04/11/2025 4:02 AM [facility] Neutrophil % 59.5 42.7 - 76.0 % 04/11/2025 4:02 AM [facility] Lymphocyte % 26.3 19.6 - 45.3 % 04/11/2025 4:02 AM [facility] Monocyte % 9.3 5.0 - 12.0 % 04/11/2025 4:02 AM [facility] Eosinophil % 4.1 0.3 - 6.2 % 04/11/2025 4:02 AM [facility] Basophil % 0.4 0.0 - 1.5 % 04/11/2025 4:02 AM [facility] Immature Grans % 0.4 0.0 - 0.5 % 04/11/2025 4:02 AM [facility] Neutrophils, Absolute 4.69 1.70 - 7.00 10*3/mm3 04/11/2025 4:02 AM [facility] Lymphocytes, Absolute 2.07 0.70 - 3.10 10*3/mm3 04/11/2025 4:02 AM [facility] Monocytes, Absolute 0.73 0.10 - 0.90 10*3/mm3 04/11/2025 4:02 AM [facility] Eosinophils, Absolute 0.32 0.00 - 0.40 10*3/mm3 04/11/2025 4:02 AM [facility] Basophils, Absolute 0.03 0.00 - 0.20 10*3/mm3 04/11/2025 4:02 AM [facility] Immature Grans, Absolute 0.03 0.00 - 0.05 10*3/mm3 04/11/2025 4:02 AM [facility] nRBC 0.0 0.0 - 0.2 /100 WBC 04/11/2025 4:02 AM [facility] Blood Venipuncture / Unknown 04/11/2025 3:40 AM EDT 04/11/2025 3:59 AM EDT us Sushil Dean Jr., MD LAB BLOOD ORDERABLES Fi nal Result [facility]
[address] [place] [address], * (ABNORMAL) Comprehensive Metabolic Panel (04/11/2025 3:40 AM EDT) Glucose 108(H) 65 - 99 mg/dL 04/11/2025 4:19 AM EDT [facility] BUN 12.5 6.0 - 20.0 mg/dL 04/11/2025 4:19 AM EDT [facility] Creatinine 0.68(L) 0.76 - 1.27 mg/dL 04/11/2025 4:19 AM EDT [facility] Sodium 140 136 - 145 mmol/L 04/11/2025 4:19 AM EDT [facility] Potassium 3.8 3.5 - 5.2 mmol/L 04/11/2025 4:19 AM EDT [facility] Chloride 105 98 - 107 mmol/L 04/11/2025 4:19 AM EDT [facility] CO2 28.2 22.0 - 29.0 mmol/L 04/11/2025 4:19 AM EDT [facility] Calcium 8.2(L) 8.6 - 10.5 mg/dL 04/11/2025 4:19 AM EDT [facility] Total Protein 6.1 6.0 - 8.5 g/dL 04/11/2025 4:19 AM EDT [facility] Albumin 3.1(L) 3.5 - 5.2 g/dL 04/11/2025 4:19 AM EDT [facility] ALT (SGPT) 52(H) 1 - 41 U/L 04/11/2025 4:19 AM EDT [facility] AST (SGOT) 40 1 - 40 U/L 04/11/2025 4:19 AM EDT [facility] Alkaline Phosphatase 99 39 - 117 U/L 04/11/2025 4:19 AM EDT [facility] Total Bilirubin 0.2 0.0 - 1.2 mg/dL 04/11/2025 4:19 AM EDT [facility] Globulin 3.0 gm/dL 04/11/2025 4:19 AM EDT [facility] Comment:Calculated Result A/G Ratio 1.0 g/dL 04/11/2025 4:19 AM EDT [facility] BUN/Creatinine Ratio 18.4 7.0 - 25.0 04/11/2025 4:19 AM EDT [facility] Anion Gap 6.8 5.0 - 15.0 mmol/L 04/11/2025 4:19 AM EDT [facility] eGFR 117.5 >60.0 mL/min/1.7 3 04/11/2025 4:19 AM EDT [facility] Blood Venipuncture / Unknown 04/11/2025 3:40 AM EDT 04/11/2025 3:56 AM EDT [facility] - 04/11/2025 4:19 AM EDT GFR [...] Hill APRN LAB BLOOD ORDERABLES Final Result [facility]
[address] [place] [address], * (ABNORMAL) CBC Auto Differential (04/10/2025 3:46 AM EDT) [facility] WBC 9.60 3.40 - 10.80 10*3/mm3 04/10/2025 3:56 AM EDT [facility] RBC 4.67 4.14 - 5.80 10*6/mm3 04/10/2025 3:[facility] Hemoglobin 12.9(L) 13.0 - 17.7 g/dL 04/10/2025 3:56 AM EDT [facility] Hematocrit 40.1 37.5 - 51.0 % 04/10/2025 3:56 [facility] MCV 85.9 79.0 - 97.0 fL 04/10/2025 3:56 [facility] MCH 27.6 26.6 - 33.0 pg 04/10/2025 3:56 AM [facility] MCHC 32.2 31.5 - 35.7 g/dL 04/10/2025 3:56 [facility] RDW 12.9 12.3 - 15.4 % 04/10/2025 3:56 AM [facility] RDW-SD 40.5 37.0 - 54.0 fl 04/10/2025 3:56 AM [facility] MPV 9.5 6.0 - 12.0 fL 04/10/2025 3:56 AM [facility] Platelets 227 140 - 450 10*3/mm3 04/10/2025 3:56 AM EDT [facility] Neutrophil % 59.1 42.7 - 76.0 % 04/10/2025 3:56 [facility] Lymphocyte % 29.0 19.6 - 45.3 % 04/10/2025 3:56 AM [facility] Monocyte % 8.1 5.0 - 12.0 % 04/10/2025 3:56 [facility] Eosinophil % 3.2 0.3 - 6.2 % 04/10/2025 3:56 AM EDT [facility] Basophil % 0.4 0.0 - 1.5 % 04/10/2025 3:56 AM EDT [facility] Immature Grans % 0.2 0.0 - 0.5 % 04/10/2025 3:56 AM EDT [facility] Neutrophils, Absolute 5.67 1.70 - 7.00 10*3/mm3 04/10/2025 3:56 AM EDT [facility] Lymphocytes, Absolute 2.78 0.70 - 3.10 10*3/mm3 04/10/2025 3:56 AM EDT [facility] Monocytes, Absolute 0.78 0.10 - 0.90 10*3/mm3 04/10/2025 3:56 AM EDT [facility] Eosinophils, Absolute 0.31 0.00 - 0.40 10*3/mm3 04/10/2025 3:56 AM EDT [facility] Basophils, Absolute 0.04 0.00 - 0.20 10*3/mm3 04/10/2025 3:56 AM EDT [facility] Immature Grans, Absolute 0.02 0.00 - 0.05 10*3/mm3 04/10/2025 3:56 AM EDT [facility] nRBC 0.0 0.0 - 0.2 /100 WBC 04/10/2025 3:56 AM EDT [facility] Blood Venipuncture / Unknown 04/10/2025 3:46 AM EDT 04/10/2025 3:53 AM EDT Jason Álvarez DO LAB BLOOD ORDERABLES Final Resul t [facility]
[address] [place] [address], * (ABNORMAL) Basic Metabolic Panel (04/10/2025 3:46 AM EDT) [facility] Glucose 125(H) 65 - 99 mg/dL 04/10/2025 4:20 AM EDT [facility] BUN 15.9 6.0 - 20.0 mg/dL 04/10/2025 4:20 AM T [facility] Creatinine 0.77 0.76 - 1.27 mg/dL 04/10/2025 4:20 AM T [facility] Sodium 137 136 - 145 mmol/L 04/10/2025 4:20 AM [facility] Potassium 3.9 3.5 - 5.2 mmol/L 04/10/2025 4:20 AM EDT [facility] Chloride 102 98 - 107 mmol/L 04/10/2025 4:20 AM EDT [facility] CO2 26.9 22.0 - 29.0 mmol/L 04/10/2025 4:20 AM [facility] Calcium 7.9(L) 8.6 - 10.5 mg/dL 04/10/2025 4:20 AM [facility] BUN/Creatinine Ratio 20.6 7.0 - 25.0 04/10/2025 4:20 AM [facility] Anion Gap 8.1 5.0 - 15.0 mmol/L 04/10/2025 4:20 AM [facility] eGFR 113.2 >60.0 mL/min/1.7 3 04/10/2025 4:20 AM [facility] Blood Venipuncture / Unknown 04/10/2025 3:46 AM EDT 04/10/2025 3:52 AM EDT [facility] - 04/10/2025 4:20 AM EDT GFR [...] DO LAB BLOOD ORDERABLES Final Resul t [facility]
[address] [place] [address], * Heparin Anti-Xa (04/10/2025 3:46 AM EDT) Heparin Anti-Xa (UFH) 0.35 0.30 - 0.70 IU/ml 04/10/2025 4:23 AM EDT [facility] Blood Venipuncture / Unknown 04/10/2025 3:46 AM EDT 04/10/2025 3:53 AM EDT [facility] LAB BLOOD ORDERABLES Final R esult Performing Organization Address City/[facility]/ZIP Co de Phone Number [facility]
[address] [place] [address], * Heparin Anti-Xa (04/09/2025 10:05 AM EDT) Heparin Anti-Xa (UFH) 0.36 0.30 - 0.70 IU/ml 04/09/2025 11:12 AM EDT [facility] Blood Venipuncture / Unknown 04/09/2025 10:05 AM EDT 04/09/2025 10:[address] [facility] LAB BLOOD ORDERABLES Final R esult [facility]
[address] [place] [address], * (ABNORMAL) CBC Auto Differential (04/09/2025 4:18 AM EDT) WBC 11.00(H) 3.40 - 10.80 10*3/mm3 04/09/2025 4:50 AM [facility] RBC 4.70 4.14 - 5.80 10*6/mm3 04/09/2025 4:50 AM EDT [facility] Hemoglobin 13.0 13.0 - 17.7 g/dL 04/09/2025 4:50 AM EDT [facility] Hematocrit 40.4 37.5 - 51.0 % 04/09/2025 4:50 AM EDT [facility] MCV 86.0 79.0 - 97.0 fL 04/09/2025 4:50 AM EDT [facility] MCH 27.7 26.6 - 33.0 pg 04/09/2025 4:50 AM [facility] MCHC 32.2 31.5 - 35.7 g/dL 04/09/2025 4:50 AM [facility] RDW 12.8 12.3 - 15.4 % 04/09/2025 4:50 AM [facility] RDW-SD 39.9 37.0 - 54.0 fl 04/09/2025 4:50 AM [facility] MPV 10.0 6.0 - 12.0 fL 04/09/2025 4:50 AM [facility] Platelets 211 140 - 450 10*3/mm3 04/09/2025 4:50 AM [facility] Neutrophil % 74.8 42.7 - 76.0 % 04/09/2025 4:50 AM EDT [facility] Lymphocyte % 15.4(L) 19.6 - 45.3 % 04/09/2025 4:50 AM EDT [facility] Monocyte % 8.5 5.0 - 12.0 % 04/09/2025 4:50 AM EDT [facility] Eosinophil % 0.6 0.3 - 6.2 % 04/09/2025 4:50 AM [facility] Basophil % 0.4 0.0 - 1.5 % 04/09/2025 4:50 AM EDT [facility] Immature Grans % 0.3 0.0 - 0.5 % 04/09/2025 4:50 AM EDT [facility] Neutrophils, Absolute 8.23(H) 1.70 - 7.00 10*3/mm3 04/09/2025 4:50 AM EDT [facility] Lymphocytes, Absolute 1.69 0.70 - 3.10 10*3/mm3 04/09/2025 4:50 AM EDT [facility] Monocytes, Absolute 0.94(H) 0.10 - 0.90 10*3/mm3 04/09/2025 4:50 AM EDT [facility] Eosinophils, Absolute 0.07 0.00 - 0.40 10*3/mm3 04/09/2025 4:50 AM EDT [facility] Basophils, Absolute 0.04 0.00 - 0.20 10*3/mm3 04/09/2025 4:50 AM EDT [facility] Immature Grans, Absolute 0.03 0.00 - 0.05 10*3/mm3 04/09/2025 4:50 AM EDT [facility] nRBC 0.0 0.0 - 0.2 /100 WBC 04/09/2025 4:50 AM EDT [facility] Blood Venipuncture / Unknown 04/09/2025 4:18 AM EDT 04/09/2025 4:31 AM EDT Sushil Dean Jr., MD LAB BLOOD ORDERABLES Fi nal Result [facility]
[address] [place] [address], * Heparin Anti-Xa (04/09/2025 4:18 AM EDT) Heparin Anti-Xa (UFH) 0.41 0.30 - 0.70 IU/ml 04/09/2025 4:53 AM EDT [facility] Blood Venipuncture / Unknown 04/09/2025 4:18 AM EDT 04/09/2025 4:31 AM EDT Una Wheeleroy PharmD LAB BLOOD ORDERABLES Final R esult [facility]
[address] [place] [address], * (ABNORMAL) Basic Metabolic Panel (04/09/2025 4:18 AM EDT) Pathologist [facility] Glucose 147(H) 65 - 99 mg/dL 04/09/2025 5:33 AM EDT [facility] BUN 23.0(H) 6.0 - 20.0 mg/dL 04/09/2025 5:33 AM EDT [facility] Creatinine 1.15 0.76 - 1.27 mg/dL 04/09/2025 5:33 AM EDT [facility] Sodium 135(L) 136 - 145 mmol/L 04/09/2025 5:33 AM EDT [facility] Potassium 4.2 3.5 - 5.2 mmol/L 04/09/2025 5:33 AM EDT [facility] Chloride 100 98 - 107 mmol/L 04/09/2025 5:33 AM EDT [facility] CO2 26.0 22.0 - 29.0 mmol/L 04/09/2025 5:33 AM EDT [facility] Calcium 8.2(L) 8.6 - 10.5 mg/dL 04/09/2025 5:33 AM EDT [facility] BUN/Creatinine Ratio 20.0 7.0 - 25.0 04/09/2025 5:33 AM EDT [facility] Anion Gap 9.0 5.0 - 15.0 mmol/L 04/09/2025 5:33 AM EDT [facility] eGFR 80.5 >60.0 mL/min/1.7 3 04/09/2025 5:33 AM EDT [facility] Blood Venipuncture / Unknown 04/09/2025 4:18 AM EDT 04/09/2025 4:29 AM EDT Narrative [facility] - 04/09/2025 5:33 AM EDT GFR [...] ORDERABLES Fi nal Result Performing Organization Address [facility] Co de Phone Number [facility]
[address] [place] [address], * Wound Culture - Swab, Leg, Right (04/08/2025 3:40 PM EDT) Wound Culture No growth at 3 days ALIZA 04/11/2025 10:40 AM EDT [facility] Gram Stain Few (2+) WBCs seen 04/11/2025 10:40 AM EDT [facility] Gram Stain No organisms seen 04/11/2025 10:40 AM EDT [facility] Swab Structure of right lower limb / Unknown 04/08/2025 3:40 PM EDT 04/08/2025 8:05 PM EDT Sushil Dean Jr., MD MICROBIOLOGY - GENERAL ORDERABLES Final Result Performing Organization Address City/[facility]/ZIP Co de Phone Number [facility]
[address] [phone], [facility]
[address] [place] [address], * Anaerobic Culture - Swab, Leg, Right (04/08/2025 3:40 PM EDT) Pathologist [facility] Anaerobic Culture No anaerobes isolated at 5 days ALIZA 04/13/2025 7:24 AM EDT [facility] Swab Structure of right lower limb / Unknown 04/08/2025 3:40 PM EDT 04/08/2025 8:05 PM EDT Sushil Dean Jr., MD MICROBIOLOGY - GENERAL ORDERABLES Final Result Performing Organization Address City/[facility] Co de Phone Number [facility]
[address] [place] [address], [place] [phone] * Scan Slide (04/08/2025 8:41 AM EDT) Pathologist [facility] RBC Morphology Normal Normal 04/08/2025 11:02 AM EDT [facility] WBC Morphology Normal Normal 04/08/2025 11:02 AM EDT [facility] Platelet Estimate Adequate Normal 04/08/2025 11:02 AM EDT [facility] Clumped Platelets Present None Seen 04/08/2025 11:02 AM EDT [facility] Blood Venipuncture / Unknown 04/08/2025 8:41 AM EDT 04/08/2025 9:10 AM EDT Una LundbergD LAB BLOOD ORDERABLES Final R esult Performing Organization Address City/[facility]/ZIP Co de Phone Number [facility]
[address] [place] [address], [place] [phone] * (ABNORMAL) CBC Auto Differential (04/08/2025 8:41 AM EDT) Pathologist [facility] WBC 10.07 3.40 - 10.80 10*3/mm3 04/08/2025 11:02 AM EDT [facility] RBC 5.01 4.14 - 5.80 10*6/mm3 04/08/2025 11:02 AM EDT [facility] Hemoglobin 14.0 13.0 - 17.7 g/dL 04/08/2025 11:02 AM [facility] Hematocrit 42.7 37.5 - 51.0 % 04/08/2025 11:02 AM [facility] MCV 85.2 79.0 - 97.0 fL 04/08/2025 11:02 AM [facility] MCH 27.9 26.6 - 33.0 pg 04/08/2025 11:02 AM [facility] MCHC 32.8 31.5 - 35.7 g/dL 04/08/2025 11:02 AM [facility] RDW 12.6 12.3 - 15.4 % 04/08/2025 11:02 AM [facility] RDW-SD 38.9 37.0 - 54.0 fl 04/08/2025 11:02 AM [facility] MPV 11.0 6.0 - 12.0 fL 04/08/2025 11:02 AM [facility] Platelets 118(L) 140 - 450 10*3/mm3 04/08/2025 11:02 AM [facility] Neutrophil % 85.1(H) 42.7 - 76.0 % 04/08/2025 11:02 AM [facility] Lymphocyte % 9.3(L) 19.6 - 45.3 % 04/08/2025 11:02 AM [facility] Monocyte % 4.6(L) 5.0 - 12.0 % 04/08/2025 11:02 AM [facility] Eosinophil % 0.3 0.3 - 6.2 % 04/08/2025 11:02 AM [facility] Basophil % 0.2 0.0 - 1.5 % 04/08/2025 11:02 AM [facility] Immature Grans % 0.5 0.0 - 0.5 % 04/08/2025 11:02 AM [facility] Neutrophils, Absolute 8.57(H) 1.70 - 7.00 10*3/mm3 04/08/2025 11:02 AM EDT [facility] Lymphocytes, Absolute 0.94 0.70 - 3.10 10*3/mm3 04/08/2025 11:02 AM EDT [facility] Monocytes, Absolute 0.46 0.10 - 0.90 10*3/mm3 04/08/2025 11:02 AM EDT [facility] Eosinophils, Absolute 0.03 0.00 - 0.40 10*3/mm3 04/08/2025 11:02 AM EDT [facility] Basophils, Absolute 0.02 0.00 - 0.20 10*3/mm3 04/08/2025 11:02 AM EDT [facility] Immature Grans, Absolute 0.05 0.00 - 0.05 10*3/mm3 04/08/2025 11:02 AM EDT [facility] nRBC 0.0 0.0 - 0.2 /100 WBC 04/08/2025 11:02 AM EDT [facility] Blood Venipuncture / Unknown 04/08/2025 8:41 AM EDT 04/08/2025 9:10 AM EDT Una Perla PharmD LAB BLOOD ORDERABLES Final R esult [facility]
[address] [place] [address], * (ABNORMAL) Basic Metabolic Panel (04/08/2025 8:41 AM EDT) Glucose 125(H) 65 - 99 mg/dL 04/08/2025 9:51 AM EDT [facility] BUN 13.2 6.0 - 20.0 mg/dL 04/08/2025 9:51 AM EDT [facility] Creatinine 0.69(L) 0.76 - 1.27 mg/dL 04/08/2025 9:51 AM EDT [facility] Sodium 136 136 - 145 mmol/L 04/08/2025 9:51 AM EDT [facility] Potassium 4.6 3.5 - 5.2 mmol/L 04/08/2025 9:51 AM EDT [facility] Chloride 102 98 - 107 mmol/L 04/08/2025 9:51 AM EDT [facility] CO2 23.5 22.0 - 29.0 mmol/L 04/08/2025 9:51 AM EDT [facility] Calcium 8.4(L) 8.6 - 10.5 mg/dL 04/08/2025 9:51 AM EDT [facility] BUN/Creatinine Ratio 19.1 7.0 - 25.0 04/08/2025 9:51 AM EDT [facility] Anion Gap 10.5 5.0 - 15.0 mmol/L 04/08/2025 9:51 AM EDT [facility] eGFR 117.0 >60.0 mL/min/1.7 3 04/08/2025 9:51 AM EDT [facility] Blood Venipuncture / Unknown 04/08/2025 8:41 AM EDT 04/08/2025 9:09 AM EDT [facility] - 04/08/2025 9:51 AM EDT GFR [...] Jr., MD LAB BLOOD ORDERABLES nal Result [facility]
[address] [place] [address], * Heparin Anti-Xa (04/08/2025 8:41 AM EDT) Heparin Anti-Xa (UFH) 0.33 0.30 - 0.70 IU/ml 04/08/2025 9:40 AM EDT [facility] Blood Venipuncture / Unknown 04/08/2025 8:41 AM EDT 04/08/2025 9:10 AM EDT Sushil Dean Jr., MD LAB BLOOD ORDERABLES Fi nal Result [facility]
[address] [place] [address], * FL C Arm During Surgery (04/07/2025 9:32 PM EDT) Narrative SYSTEMGENERATED, DOCUMENTATION - 04/07/2025 9:38 PM EDT This procedure was auto-finalized with no dictation required. Sushil Dean Jr., MD IMG FLUOROSCOPY ORDERAB LES Final Result * Wound Culture - Swab, Leg, Right (04/07/2025 9:14 PM EDT) Wound Culture No growth at 3 days ALIZA 04/11/2025 10:40 AM EDT [facility] Gram Stain Occasional WBCs seen 04/11/2025 10:40 AM EDT [facility] Gram Stain No organisms seen 04/11/2025 10:40 AM EDT [facility] Swab Structure of right lower limb / Unknown Collection / Unknown 04/07/2025 9:14 PM EDT 04/08/2025 4:36 AM EDT Sushil Dean Jr., MD MICROBIOLOGY - GENERAL ORDERABLES Final Result [facility]
[address] [place] [address], [facility]
[address] [place] [address], * Anaerobic Culture - Swab, Leg, Right (04/07/2025 9:14 PM EDT) Anaerobic Culture No anaerobes isolated at 5 days ALIZA 04/13/2025 7:21 AM EDT [facility] Swab Structure of right lower limb / Unknown Collection / Unknown 04/07/2025 9:14 PM EDT 04/08/2025 4:36 AM EDT Sushil Dean Jr., MD MICROBIOLOGY - GENERAL ORDERABLES Final Result Performing Organization Address City/[facility]/ZIP Co de Phone Number [facility]
[address] [place] [address], * Anaerobic Culture - Tissue, Leg (04/07/2025 9:13 PM EDT) Anaerobic Culture No anaerobes isolated at 5 days ALIZA 04/13/2025 7:21 AM EDT [facility] Tissue Lower limb structure / Unknown Collection / Unknown 04/07/2025 9:13 PM EDT 04/08/2025 4:54 AM EDT Jason Álvarez DO MICROBIOLOGY - GENERAL ORDERABLE S Final Result [facility]
[address] [place] [address], * Tissue / Bone Culture - Tissue, Leg, Right (04/07/2025 9:13 PM EDT) Tissue Culture No growth at 3 days ALIZA 04/11/2025 10:36 AM EDT [facility] Gram Stain Rare (1+) WBCs seen 04/11/2025 10:36 AM EDT [facility] Gram Stain No organisms seen 04/11/2025 10:36 AM EDT [facility] Tissue Structure of right lower limb / Unknown 04/07/2025 9:13 PM EDT 04/08/2025 4:54 AM EDT Sushil Dean Jr., MD MICROBIOLOGY - GENERAL ORDERABLES Final Result Performing Organization Address City/[facility]/ZIP Co de Phone Number [facility]
[address] [place] [address], [place] [phone] [facility]
[address] [place] [address], [place] [phone] * (ABNORMAL) Wound Culture - Swab, Leg, Right (04/07/2025 9:07 PM EDT) Wound Culture Light growth (2+) Staphylococcus aureus, MRSA(A) ALIZA 04/10/2025 10:38 AM EDT [facility] Comment: Methicillin resistant Staphylococcus aureus, Patient may be an isolation risk. Gram Stain Few (2+) WBCs seen 04/10/2025 10:38 AM EDT [facility] Gram Stain No organisms seen 10:38 AM EDT [facility] Swab Structure of right lower limb [...] MD MICROBIOLOGY - GENERAL ORDERABLES Final Result [facility]
[address] [place] [address], [facility]
[address] [place] [address], * Anaerobic Culture - Swab, Leg, Right (04/07/2025 9:07 PM EDT) Pathologist [facility] Anaerobic Culture No anaerobes isolated at 5 days ALIZA 04/13/2025 7:21 AM EDT [facility] Swab Structure of right lower limb / Unknown Collection / Unknown 04/07/2025 9:07 PM EDT 04/08/2025 4:36 AM EDT Sushil Dean Jr., MD MICROBIOLOGY - GENERAL ORDERABLES Final Result Performing Organization Address [facility] Co de Phone Number [facility]
[address] [place] [address], * Heparin Anti-Xa (04/07/2025 9:10 AM EDT) [facility] Heparin Anti-Xa (UFH) 0.30 0.30 - 0.70 IU/ml 04/07/2025 10:12 AM EDT [facility] Blood Venipuncture / Unknown 04/07/2025 9:10 AM EDT 04/07/2025 9:38 AM EDT Una LundbergD LAB BLOOD ORDERABLES Final R esult Performing Organization Address City/[facility]/ZIP Co de Phone Number [facility]
[address] [place] [address], * (ABNORMAL) CBC Auto Differential (04/07/2025 9:10 AM EDT) Pathologist [facility] WBC 8.63 3.40 - 10.80 10*3/mm3 04/07/2025 9:50 AM EDT [facility] RBC 5.23 4.14 - 5.80 10*6/mm3 04/07/2025 9:[facility] Hemoglobin 14.7 13.0 - 17.7 g/dL 04/07/2025 9:50 AM [facility] Hematocrit 44.8 37.5 - 51.0 % 04/07/2025 9:50 [facility] MCV 85.7 79.0 - 97.0 fL 04/07/2025 9:50 AM EDT [facility] MCH 28.1 26.6 - 33.0 pg 04/07/2025 9:50 [facility] MCHC 32.8 31.5 - 35.7 g/dL 04/07/2025 9:50 AM [facility] RDW 12.8 12.3 - 15.4 % 04/07/2025 9:50 AM [facility] RDW-SD 39.9 37.0 - 54.0 fl 04/07/2025 9:50 AM [facility] MPV 10.8 6.0 - 12.0 fL 04/07/2025 9:50 AM [facility] Platelets 149 140 - 450 10*3/mm3 04/07/2025 9:50 AM [facility] Neutrophil % 66.7 42.7 - 76.0 % 04/07/2025 9:50 AM [facility] Lymphocyte % 20.5 19.6 - 45.3 % 04/07/2025 9:50 AM EDT [facility] Monocyte % 9.8 5.0 - 12.0 % 04/07/2025 9:50 AM [facility] Eosinophil % 2.1 0.3 - 6.2 % 04/07/2025 9:50 AM [facility] Basophil % 0.3 0.0 - 1.5 % 04/07/2025 9:50 AM [facility] Immature Grans % 0.6(H) 0.0 - 0.5 % 04/07/2025 9:50 AM EDT [facility] Neutrophils, Absolute 5.75 1.70 - 7.00 10*3/mm3 04/07/2025 9:50 AM EDT [facility] Lymphocytes, Absolute 1.77 0.70 - 3.10 10*3/mm3 04/07/2025 9:50 AM EDT [facility] Monocytes, Absolute 0.85 0.10 - 0.90 10*3/mm3 04/07/2025 9:50 AM EDT [facility] Eosinophils, Absolute 0.18 0.00 - 0.40 10*3/mm3 04/07/2025 9:50 AM EDT [facility] Basophils, Absolute 0.03 0.00 - 0.20 10*3/mm3 04/07/2025 9:50 AM EDT [facility] Immature Grans, Absolute 0.05 0.00 - 0.05 10*3/mm3 04/07/2025 9:50 AM EDT [facility] nRBC 0.0 0.0 - 0.2 /100 WBC 04/07/2025 9:50 AM EDT [facility] Blood Venipuncture / Unknown 04/07/2025 9:10 AM EDT 04/07/2025 9:38 AM EDT us Jason Álvarez DO LAB BLOOD ORDERABLES Final Resul t [facility]
[address] [place] [address], * (ABNORMAL) Basic Metabolic Panel (04/07/2025 9:10 AM EDT) Glucose 112(H) 65 - 99 mg/dL 04/07/2025 10:19 AM EDT [facility] BUN 13.1 6.0 - 20.0 mg/dL 04/07/2025 10:19 AM EDT [facility] Creatinine 0.77 0.76 - 1.27 mg/dL 04/07/2025 10:19 AM EDT [facility] Sodium 139 136 - 145 mmol/L 04/07/2025 10:19 AM EDT [facility] Potassium 4.2 3.5 - 5.2 mmol/L 04/07/2025 10:19 AM EDT [facility] Comment:Specimen hemolyzed. Result may be falsely elevated. Chloride 105 98 - 107 mmol/L 04/07/2025 10:19 AM EDT [facility] CO2 24.8 22.0 - 29.0 mmol/L 04/07/2025 10:19 AM EDT [facility] Calcium 8.6 8.6 - 10.5 mg/dL 04/07/2025 10:19 AM T [facility] BUN/Creatinine Ratio 17.0 7.0 - 25.0 04/07/2025 10:19 AM EDT [facility] Anion Gap 9.2 5.0 - 15.0 mmol/L 04/07/2025 10:19 AM T [facility] eGFR 113.2 >60.0 mL/min/1.7 3 04/07/2025 10:19 AM T [facility] Blood Venipuncture / Unknown 04/07/2025 9:10 AM EDT 04/07/2025 9:38 AM EDT Narrative [facility] - 04/07/2025 10:19 AM EDT GFR [...] DO LAB BLOOD ORDERABLES Final Resul t [facility]
[address] [place] [address], * MRI Tibia Fibula Right With & [...] [place] 04/07/2025 9:58 AM EDT Workstation ID: [id number] Narrative 04/07/2025 9:58 AM EDT MRI TIBIA [...] [place] 04/07/2025 9:58 AM EDT Workstation ID: [id number] us Sushil Dean Jr., MD [facility] MRI ORDERABLES Mary Beth l Result * Heparin Anti-Xa (04/07/2025 1:42 AM EDT) Heparin Anti-Xa (UFH) 0.38 0.30 - 0.70 IU/ml 04/07/2025 2:14 AM EDT [facility] Blood Venipuncture / Unknown 04/07/2025 1:42 AM EDT 04/07/2025 1:54 AM EDT Chelsie Navarretesapna [facility] LAB BLOOD ORDERABLES Final R esult Performing Organization Address City/[facility]/ZIP Co de Phone Number [facility]
[address] [place] [address], * Heparin Anti-Xa (04/06/2025 7:16 PM EDT) Pathologist [facility] Heparin Anti-Xa (UFH) 0.33 0.30 - 0.70 IU/ml 04/06/2025 7:50 PM EDT [facility] Blood Venipuncture / Unknown 04/06/2025 7:16 PM EDT 04/06/2025 7:35 PM EDT Cherri Beatty [facility] LAB BLOOD ORDERABLES Final Res ult Performing Organization Address City/[facility] Co de Phone Number [facility]
[address] [place] [address], * Potassium (04/06/2025 7:16 PM EDT) Pathologist [facility] Potassium 4.0 3.5 - 5.2 mmol/L 04/06/2025 7:53 PM EDT [facility] Blood Venipuncture / Unknown 04/06/2025 7:16 PM EDT 04/06/2025 7:35 PM EDT Jason Álvarez DO LAB BLOOD ORDERABLES Final Resul t Performing Organization Address City/[facility]/ZIP Co de Phone Number [facility]
[address] [place] [address], * (ABNORMAL) Heparin Anti-Xa (04/06/2025 12:36 PM EDT) Heparin Anti-Xa (UFH) 0.24(L) 0.30 - 0.70 IU/ml 04/06/2025 1:23 PM EDT [facility] Blood Venipuncture / Unknown 04/06/2025 12:36 PM EDT 04/06/2025 1:07 PM EDT Una LundbergD LAB BLOOD ORDERABLES Final R esult [facility]
[address] [place] [address], * (ABNORMAL) Heparin Anti-Xa (04/06/2025 3:42 AM EDT) [facility] Heparin Anti-Xa (UFH) 0.25(L) 0.30 - 0.70 IU/ml 04/06/2025 5:30 AM EDT [facility] Blood Venipuncture / Unknown 04/06/2025 3:42 AM EDT 04/06/2025 4:59 AM EDT Chelsie Turpin [facility] LAB BLOOD ORDERABLES Final R esult [facility]
[address] [place] [address], * (ABNORMAL) Basic Metabolic Panel (04/06/2025 3:42 AM EDT) [facility] Glucose 94 65 - 99 mg/dL 04/06/2025 5:59 AM EDT [facility] BUN 12.8 6.0 - 20.0 mg/dL 04/06/2025 5:59 AM EDT [facility] Creatinine 0.80 0.76 - 1.27 mg/dL 04/06/2025 5:59 AM EDT [facility] Sodium 138 136 - 145 mmol/L 04/06/2025 5:59 AM EDT [facility] Potassium 3.6 3.5 - 5.2 mmol/L 04/06/2025 5:59 AM EDT [facility] Chloride 103 98 - 107 mmol/L 04/06/2025 5:59 AM EDT [facility] CO2 24.2 22.0 - 29.0 mmol/L 04/06/2025 5:59 AM EDT [facility] Calcium 8.0(L) 8.6 - 10.5 mg/dL 04/06/2025 5:59 AM EDT [facility] BUN/Creatinine Ratio 16.0 7.0 - 25.0 04/06/2025 5:59 AM EDT [facility] Anion Gap 10.8 5.0 - 15.0 mmol/L 04/06/2025 5:59 AM EDT [facility] eGFR 111.9 >60.0 mL/min/1.7 3 04/06/2025 5:59 AM EDT [facility] Blood Venipuncture / Unknown 04/06/2025 3:42 AM EDT 04/06/2025 5:20 AM EDT Narrative [facility] - 04/06/2025 5:59 AM EDT GFR [...] DO LAB BLOOD ORDERABLES Final Resul t [facility]
[address] [place] [address], * (ABNORMAL) CBC Auto Differential (04/06/2025 3:41 AM EDT) WBC 10.86(H) 3.40 - 10.80 10*3/mm3 04/06/2025 5:04 AM EDT [facility] RBC 5.08 4.14 - 5.80 10*6/mm3 04/06/2025 5:04 AM EDT [facility] Hemoglobin 13.9 13.0 - 17.7 g/dL 04/06/2025 5:04 AM EDT [facility] Hematocrit 43.7 37.5 - 51.0 % 04/06/2025 5:04 AM EDT [facility] MCV 86.0 79.0 - 97.0 fL 04/06/2025 5:04 AM EDT [facility] MCH 27.4 26.6 - 33.0 pg 04/06/2025 5:04 AM EDT [facility] MCHC 31.8 31.5 - 35.7 g/dL 04/06/2025 5:04 AM EDT [facility] RDW 12.8 12.3 - 15.4 % 04/06/2025 5:04 AM EDT [facility] RDW-SD 40.0 37.0 - 54.0 fl 04/06/2025 5:04 AM EDT [facility] MPV 11.7 6.0 - 12.0 fL 04/06/2025 5:04 AM EDT [facility] Platelets 115(L) 140 - 450 10*3/mm3 04/06/2025 5:04 AM EDT [facility] Neutrophil % 65.3 42.7 - 76.0 % 04/06/2025 5:04 AM EDT [facility] Lymphocyte % 20.5 19.6 - 45.3 % 04/06/2025 5:04 AM EDT [facility] Monocyte % 11.8 5.0 - 12.0 % 04/06/2025 5:04 AM EDT [facility] Eosinophil % 1.8 0.3 - 6.2 % 04/06/2025 5:04 AM EDT [facility] Basophil % 0.3 0.0 - 1.5 % 04/06/2025 5:04 AM EDT [facility] Immature Grans % 0.3 0.0 - 0.5 % 04/06/2025 5:04 AM EDT [facility] Neutrophils, Absolute 7.09(H) 1.70 - 7.00 10*3/mm3 04/06/2025 5:04 AM EDT [facility] Lymphocytes, Absolute 2.23 0.70 - 3.10 10*3/mm3 04/06/2025 5:04 AM EDT [facility] Monocytes, Absolute 1.28(H) 0.10 - 0.90 10*3/mm3 04/06/2025 5:04 AM EDT [facility] Eosinophils, Absolute 0.20 0.00 - 0.40 10*3/mm3 04/06/2025 5:04 AM EDT [facility] Basophils, Absolute 0.03 0.00 - 0.20 10*3/mm3 04/06/2025 5:04 AM EDT [facility] Immature Grans, Absolute 0.03 0.00 - 0.05 10*3/mm3 04/06/2025 5:04 AM EDT [facility] nRBC 0.0 0.0 - 0.2 /100 WBC 04/06/2025 5:04 AM EDT [facility] Blood Venipuncture / Unknown 04/06/2025 3:41 AM EDT 04/06/2025 4:58 AM EDT us Jason Álvarez DO LAB BLOOD ORDERABLES Final Resul t [facility]
[address] [place] [address], * Heparin Anti-Xa (04/05/2025 8:43 PM EDT) Heparin Anti-Xa (UFH) 0.38 0.30 - 0.70 IU/ml 04/05/2025 9:09 PM EDT [facility] Blood Venipuncture / Unknown 04/05/2025 8:43 PM EDT 04/05/2025 8:55 PM EDT Cherri Beatty [facility] LAB BLOOD ORDERABLES Final Res ult Performing Organization Address [facility] Co de Phone Number [facility]
[address] [place] [address], * CK (04/05/2025 12:15 PM EDT) Creatine Kinase 140 20 - 200 U/L 04/05/2025 1:31 PM EDT [facility] Blood Venipuncture / Unknown 04/05/2025 12:15 PM EDT 04/05/2025 1:03 PM EDT Carlton Mead MD LAB BLOOD ORDERABLES Final R esult Performing Organization Address [facility] Co de Phone Number [facility]
[address] [place] [address], [place] [phone] * (ABNORMAL) Heparin Anti-Xa (04/05/2025 12:15 PM EDT) Heparin Anti-Xa (UFH) 0.17(L) 0.30 - 0.70 IU/ml 04/05/2025 1:21 PM EDT [facility] Blood Venipuncture / Unknown 04/05/2025 12:15 PM EDT 04/05/2025 1:04 PM EDT Una LundbergD LAB BLOOD ORDERABLES Final R esult Performing Organization Address City/[facility]/ZIP Co de Phone Number [facility]
[address] [place] [address], * (ABNORMAL) aPTT (04/05/2025 3:54 AM EDT) [facility] PTT 35.3(L) 60.0 - 90.0 seconds 04/05/2025 4:31 AM EDT [facility] Blood Venipuncture / Unknown 04/05/2025 3:54 AM EDT 04/05/2025 4:15 AM EDT Narrative [facility] - 04/05/2025 4:31 AM EDT PTT = The equivalent PTT values for the therapeutic range of heparin levels at 0.3 to 0.5 U/ml are 60 to 70 seconds. Una Perla [employer] LAB BLOOD ORDERABLES Final R esult Performing Organization Address [facility] Co de Phone Number [facility]
[address] [place] [address], * Heparin Anti-Xa (04/05/2025 3:54 AM EDT) [facility] Heparin Anti-Xa (UFH) 0.30 0.30 - 0.70 IU/ml 04/05/2025 4:32 AM EDT [facility] Blood Venipuncture / Unknown 04/05/2025 3:54 AM EDT 04/05/2025 4:15 AM EDT [employer] LAB BLOOD ORDERABLES Final R esult Performing Organization Address City/[facility] Co de Phone Number [facility]
[address] [place] [address], * (ABNORMAL) CBC Auto Differential (04/05/2025 3:54 AM EDT) [facility] WBC 11.18(H) 3.40 - 10.80 10*3/mm3 04/05/2025 4:20 AM EDT [facility] RBC 5.00 4.14 - 5.80 10*6/mm3 04/05/2025 4:20 AM EDT [facility] Hemoglobin 13.9 13.0 - 17.7 g/dL 04/05/2025 4:20 AM EDT [facility] Hematocrit 42.4 37.5 - 51.0 % 04/05/2025 4:20 AM EDT [facility] MCV 84.8 79.0 - 97.0 fL 04/05/2025 4:20 AM EDT [facility] MCH 27.8 26.6 - 33.0 pg 04/05/2025 4:20 [facility] MCHC 32.8 31.5 - 35.7 g/dL 04/05/2025 4:20 AM [facility] RDW 12.9 12.3 - 15.4 % 04/05/2025 4:20 AM [facility] RDW-SD 39.7 37.0 - 54.0 fl 04/05/2025 4:20 AM [facility] MPV 10.2 6.0 - 12.0 fL 04/05/2025 4:20 AM [facility] Platelets 160 140 - 450 10*3/mm3 04/05/2025 4:20 AM [facility] Neutrophil % 73.5 42.7 - 76.0 % 04/05/2025 4:20 AM [facility] Lymphocyte % 14.0(L) 19.6 - 45.3 % 04/05/2025 4:20 AM EDT [facility] Monocyte % 11.0 5.0 - 12.0 % 04/05/2025 4:20 AM [facility] Eosinophil % 0.8 0.3 - 6.2 % 04/05/2025 4:20 AM [facility] Basophil % 0.3 0.0 - 1.5 % 04/05/2025 4:20 AM EDT [facility] Immature Grans % 0.4 0.0 - 0.5 % 04/05/2025 4:20 AM EDT [facility] Neutrophils, Absolute 8.23(H) 1.70 - 7.00 10*3/mm3 04/05/2025 4:20 AM EDT [facility] Lymphocytes, Absolute 1.56 0.70 - 3.10 10*3/mm3 04/05/2025 4:20 AM EDT [facility] Monocytes, Absolute 1.23(H) 0.10 - 0.90 10*3/mm3 04/05/2025 4:20 AM EDT [facility] Eosinophils, Absolute 0.09 0.00 - 0.40 10*3/mm3 04/05/2025 4:20 AM EDT [facility] Basophils, Absolute 0.03 0.00 - 0.20 10*3/mm3 04/05/2025 4:20 AM EDT [facility] Immature Grans, Absolute 0.04 0.00 - 0.05 10*3/mm3 04/05/2025 4:20 AM EDT [facility] nRBC 0.0 0.0 - 0.2 /100 WBC 04/05/2025 4:20 AM EDT [facility] Blood Venipuncture / Unknown 04/05/2025 3:54 AM EDT 04/05/2025 4:16 AM EDT Una Perla PharmD LAB BLOOD ORDERABLES Final R esult [facility]
[address] [place] [address], * (ABNORMAL) Basic Metabolic Panel (04/05/2025 3:54 AM EDT) [facility] Signature Glucose 152(H) 65 - 99 mg/dL 04/05/2025 4:40 AM EDT [facility] BUN 17.3 6.0 - 20.0 mg/dL 04/05/2025 4:40 AM T [facility] Creatinine 0.92 0.76 - 1.27 mg/dL 04/05/2025 4:40 AM EDT [facility] Sodium 136 136 - 145 mmol/L 04/05/2025 4:40 AM EDT [facility] Potassium 3.9 3.5 - 5.2 mmol/L 04/05/2025 4:40 AM EDT [facility] Chloride 103 98 - 107 mmol/L 04/05/2025 4:40 AM EDT [facility] CO2 24.0 22.0 - 29.0 mmol/L 04/05/2025 4:40 AM T [facility] Calcium 7.8(L) 8.6 - 10.5 mg/dL 04/05/2025 4:40 AM [facility] BUN/Creatinine Ratio 18.8 7.0 - 25.0 04/05/2025 4:40 AM T [facility] Anion Gap 9.0 5.0 - 15.0 mmol/L 04/05/2025 4:40 AM [facility] eGFR 105.2 >60.0 mL/min/1.7 3 04/05/2025 4:40 AM [facility] Blood Venipuncture / Unknown 04/05/2025 3:54 AM EDT 04/05/2025 4:15 AM EDT [facility] - 04/05/2025 4:40 AM EDT GFR [...] ORDERABLES Final Re sult Performing Organization Address [facility] Co de Phone Number [facility]
[address] [place] [address], * (ABNORMAL) aPTT (04/05/2025 12:18 AM EDT) PTT 33.6(L) 60.0 - 90.0 seconds 04/05/2025 12:53 AM EDT [facility] Blood Venipuncture / Unknown 04/05/2025 12:18 AM EDT 04/05/2025 12:37 AM EDT Narrative [facility] - 04/05/2025 12:53 AM EDT PTT = The equivalent PTT values for the therapeutic range of heparin levels at 0.3 to 0.5 U/ml are 60 to 70 seconds. Una Perla PharmD LAB BLOOD ORDERABLES Final R esult Performing Organization Address [facility] Co de Phone Number [facility]
[address] [place] [address], [place] [phone] * (ABNORMAL) Protime-INR (04/05/2025 12:18 AM EDT) Protime 15.9(H) 12.2 - 15.3 Seconds 04/05/2025 12:53 AM EDT [facility] INR 1.19(H) 0.89 - 1.12 04/05/2025 12:53 AM EDT [facility] Blood Venipuncture / Unknown 04/05/2025 12:18 AM EDT 04/05/2025 12:37 AM EDT Una Perla PharmD LAB BLOOD ORDERABLES Final R esult Performing Organization Address City/[facility] Co de Phone Number [facility]
[address] [place] [address], [place] [phone] * Heparin Anti-Xa (04/05/2025 12:18 AM EDT) Heparin Anti-Xa ([facility]) 0.39 0.30 - 0.70 IU/ml 04/05/2025 12:54 AM EDT [facility] Blood Venipuncture / Unknown 04/05/2025 12:18 AM EDT 04/05/2025 12:37 AM EDT Una Perla PharmD LAB BLOOD ORDERABLES Final R esult [facility]
[address] [place] [address], * MRI Tibia Fibula Right With & [...] MD 04/04/2025 11:00 PM EDT Workstation ID: [id number] Narrative 04/04/2025 11:00 PM EDT MRI TIBIA [...] MD 04/04/2025 11:00 PM EDT Workstation ID: [id number] us Leonora Shepherd MD IMG MRI ORDERABLES Final Resu lt * POC Creatinine (04/04/2025 2:49 PM EDT) [facility] Creatinine 1.10 0.60 - 1.30 mg/dL 04/07/2025 7:14 PM EDT [facility] Comment:Serial Number: [id number] Venous Blood 04/04/2025 2:49 PM EDT 04/07/2025 7:14 PM EDT Jason Álvarez DO POINT OF CARE TEST ORDERABLES Fi nal Result [facility]
[address] [place] [address], * (ABNORMAL) CBC Auto Differential (04/04/2025 2:47 PM EDT) [facility] WBC 12.72(H) 3.40 - 10.80 10*3/mm3 04/04/2025 2:56 PM EDT [facility] RBC 5.64 4.14 - 5.80 10*6/mm3 04/04/2025 2:56 PM EDT [facility] Hemoglobin 15.3 13.0 - 17.7 g/dL 04/04/2025 2:56 PM EDT [facility] Hematocrit 47.9 37.5 - 51.0 % 04/04/2025 2:56 PM EDT [facility] MCV 84.9 79.0 - 97.0 fL 04/04/2025 2:56 PM EDT [facility] MCH 27.1 26.6 - 33.0 pg 04/04/2025 2:56 PM EDT [facility] MCHC 31.9 31.5 - 35.7 g/dL 04/04/2025 2:56 PM EDT [facility] RDW 13.1 12.3 - 15.4 % 04/04/[facility]25 2:[facility] RDW-SD 40.3 37.0 - 54.0 fl 04/04/2025 2:56 PM EDT [facility] MPV 9.4 6.0 - 12.0 fL 04/04/2025 2:56 PM EDT [facility] Platelets 232 140 - 450 10*3/mm3 04/04/2025 2:56 PM EDT [facility] Neutrophil % 74.9 42.7 - 76.0 % 04/04/2025 2:56 PM EDT [facility] Lymphocyte % 13.1(L) 19.6 - 45.3 % 04/04/2025 2:56 [facility] Monocyte % 11.2 5.0 - 12.0 % 04/04/2025 2:56 PM [facility] Eosinophil % 0.4 0.3 - 6.2 % 04/04/2025 2:56 PM EDT [facility] Basophil % 0.2 0.0 - 1.5 % 04/04/2025 2:56 PM [facility] Immature Grans % 0.2 0.0 - 0.5 % 04/04/2025 2:56 PM [facility] Neutrophils, Absolute 9.52(H) 1.70 - 7.00 10*3/mm3 04/04/2025 2:56 PM [facility] Lymphocytes, Absolute 1.66 0.70 - 3.10 10*3/mm3 04/04/2025 2:56 PM EDT [facility] Monocytes, Absolute 1.43(H) 0.10 - 0.90 10*3/mm3 04/04/2025 2:56 PM EDT [facility] Eosinophils, Absolute 0.05 0.00 - 0.40 10*3/mm3 04/04/2025 2:56 PM [facility] Basophils, Absolute 0.03 0.00 - 0.20 10*3/mm3 04/04/2025 2:56 PM EDT [facility] Immature Grans, Absolute 0.03 0.00 - 0.05 10*3/mm3 04/04/2025 2:56 PM EDT [facility] nRBC 0.0 0.0 - 0.2 /100 WBC 04/04/2025 2:56 PM EDT [facility] Blood Venipuncture / Unknown 04/04/2025 2:47 PM EDT 04/04/2025 2:52 PM EDT Mario Ortiz [employer] LAB BLOOD ORDERABLES Fin al Result Performing Organization Address City/[facility]/ZIP Co de Phone Number [facility]
[address] [place] [address], * (ABNORMAL) C-reactive Protein (04/04/2025 2:47 PM EDT) C-Reactive Protein 8.57(H) 0.00 - 0.50 mg/dL 04/04/2025 3:26 PM EDT [facility] Blood Venipuncture / Unknown 04/04/2025 2:47 PM EDT 04/04/2025 2:52 PM EDT Mario Ortiz [employer] LAB BLOOD ORDERABLES Fin al Result Performing Organization Address [facility] de Phone Number [facility]
[address] [place] [address], * (ABNORMAL) Sedimentation Rate (04/04/2025 2:47 PM EDT) Sed Rate 51(H) 0 - 15 mm/hr 04/04/2025 3:06 PM EDT [facility] Blood Venipuncture / Unknown 04/04/2025 2:47 PM EDT 04/04/2025 2:52 PM EDT Mario Ortiz [facility] LAB BLOOD ORDERABLES Fin al Result Performing Organization Address City/[facility]/ZIP Co de Phone Number [facility]
[address] [place] [address], * Comprehensive Metabolic Panel (04/04/2025 2:47 PM EDT) [facility] Glucose 90 65 - 99 mg/dL 04/04/2025 3:26 PM EDT [facility] BUN 18.3 6.0 - 20.0 mg/dL 04/04/2025 3:26 PM EDT [facility] Creatinine 0.94 0.76 - 1.27 mg/dL 04/04/2025 3:26 PM EDT [facility] Sodium 136 136 - 145 mmol/L 04/04/2025 3:26 PM EDT [facility] Potassium 3.8 3.5 - 5.2 mmol/L 04/04/2025 3:26 PM EDT [facility] Chloride 100 98 - 107 mmol/L 04/04/2025 3:26 PM EDT [facility] CO2 25.3 22.0 - 29.0 mmol/L 04/04/2025 3:26 PM EDT [facility] Calcium 8.6 8.6 - 10.5 mg/dL 04/04/2025 3:26 PM EDT [facility] Total Protein 7.3 6.0 - 8.5 g/dL 04/04/2025 3:26 PM EDT [facility] Albumin 4.1 3.5 - 5.2 g/dL 04/04/2025 3:26 PM EDT [facility] ALT (SGPT) 26 1 - 41 U/L 04/04/2025 3:26 PM EDT [facility] AST (SGOT) 25 1 - 40 U/L 04/04/2025 3:26 PM EDT [facility] Alkaline Phosphatase 106 39 - 117 U/L 04/04/2025 3:26 PM EDT [facility] Total Bilirubin 1.0 0.0 - 1.2 mg/dL 04/04/2025 3:26 PM EDT [facility] Globulin 3.2 gm/dL 04/04/2025 3:26 PM EDT [facility] Comment:Calculated Result A/G Ratio 1.3 g/dL 04/04/2025 3:26 PM EDT [facility] BUN/Creatinine Ratio 19.5 7.0 - 25.0 04/04/2025 3:26 PM EDT [facility] Anion Gap 10.7 5.0 - 15.0 mmol/L 04/04/2025 3:26 PM EDT [facility] eGFR 102.5 >60.0 mL/min/1.7 3 04/04/2025 3:26 PM EDT [facility] Blood Venipuncture / Unknown 04/04/2025 2:47 PM EDT 04/04/2025 2:52 PM EDT Narrative [facility] - 04/04/2025 3:26 PM EDT GFR [...] DO LAB BLOOD ORDERABLES Fin al Result [facility]
[address] [place] [address], documented in this encounter Visit Diagnoses Diagnosis [...] 04/05/2025 3:33 PM EDT 2,000 Units heparin 90929 units/250 mL (100 units/mL) in 0.45 % [...] BPA Driven Protocol Open Order & [facility] Electrolyte Replacement Protocol Algorithm to View [...] BPA Driven Protocol Open Order & [facility] Electrolyte Replacement Protocol Algorithm to View [...] disposal. 0831 (Given - Provider: Amber Salazar, NURSE TRANSPLANT)194 (Given - Provider: Anahy Marcelino, NURSE TRANSPLANT)2129 (Canceled Entry - Provider: Anahy Marcelino RRT [...] Continuous Medication Order 04/09/2025 04/10/2025 04/11/2025 heparin 07296 units/250 mL (100 units/mL) in 0.45 % [...] Provider: Shirley Hart, LU)1220 (Given - Provider: Shirley Hart, RN)1438 (Given - Provider: Shirley Hart, [...] BPA Driven Protocol Open Order & [facility] Electrolyte Replacement Protocol Algorithm to View [...] BPA Driven Protocol Open Order & 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
--- OUTSIDE RECORDS SUMMARY | 2025-04-07 17:00 | XMS_ITS | Encounter Summary ---
[facility] Address [address] [place] [address] Care Team Providers Care Mineral Technologist Name Role Phone Provider, No Known Primary Care Provider Unavail able Reason for Visit * Reason Comments Leg Swelling * Auth/Cert Specialty Diagnoses / Procedures Referred By Contac t Referred To Contact Diagnoses Right BKA infection Referral ID Status Reason Start Date Expiration Date Visits Re quested Visits Authorized [id number] 1 1 Encounter Details Date Type Department Care Team (Late st Contact Info) Description 04/07/2025 6:00 PM EDT - 04/07/2025 6:52 PM EDT Surgery [facility] OR [address] [place] [address] Sushil Dean Jr., MD [address] [place] [address] [address] [id number] LEG DEBRIDEMENT, IRRIGATION Social History Tobacco Use Types Packs/Day Years Used Date Smoking Tobacco: Never Smokeless Tobacco: Never Tobacco Cessation:Counseling Given: Not Answered Alcohol Use Standard Drinks/Week Comments Not Currently 0 (1 standard drink = 0.6 oz pur e alcohol) [facility] Utilities Answer Date Recorded In the past 12 months has [employer] electric, gas, oil, or water company threatened [...] 2:25 PM EDT Cherri Grimm RN * Forbes Suicide Severity Rating Scale (Screener/Recent Self-Report) Question [...] original note were not included. [facility] DISCHARGE SUMMARY Patient Name: Won [...] Date/Time Wound Culture - Swab, Leg, Right [[id number]] (Abnormal) (Susceptibility) Collected: 04/07/252106 Lab Status: Final [...] Units Date/Time FL C Arm During Surgery [[id number]] Resulted: 04/07/252137 Updated: 04/07/252137 Narrative: This procedure was auto-finalized with no dictation required. MRI Tibia Fibula Right With & Without Contrast [[id number]] Collected: 04/07/25 0938 Updated: 04/07/25 1001 Narrative: [...] Buenrostro 04/07/2025 9:58 AM EDT Workstation ID: [id number] MRI Tibia Fibula Right With & Without Contrast [[id number]] Collected: 04/04/252256 Updated: 04/04/252302 Narrative: MRI TIBIA [...] represent a small area of phlegmonous change (weplqr98 image 10) measuring approximately 1.6 cm which [...] MD 04/04/2025 11:00 PM EDT Workstation ID: [id number] Pending Labs Order Current Status Fungus Culture [...] Male) Date of 1980 Social Security Number [id number] [place] [address] [place] [address] [place] Unknown Marital Status Unknown Admission Date 04/04/2025 Admission Type Emergency Admitting Provider Jadyn Richardson DO Attending Provider Jadyn Richardson DO Department, Room/Bed [facility] 5G, S565/1 Discharge Date Discharge Disposition Discharge [...] [place] [id number] Payor Plan Address Payor Plan Phone Number Payor Plan Fax Number Effective Dates [employer] [address] [address] 08/10/2023 - None Entered [facility] [id number] Subscriber Name Subscriber Date Member ID WON DENNIS 1980 [id number] Emergency Contacts Belly Packer (Rel.) Home Phone Work Phone Mobile Phone Avril Dennis (Spouse) -- -- [phone] Robert Hackett (Relative) -- -- [phone] [facility] 5G [address] [facility] [address] Patient: ROOM: [facility] Won Dennis [address] [facility] [place] [address] : 1980 SSN: [id number] Sex: M PCP: Provider, No Known Emergency Contact Information Name Relation Home Work Mobile Avril Dennis Spouse [phone] Other Contacts Name Relation Home Work Mobile Robert Hackett Relative [phone] INSURANCE PA[employer]OR [employer]AN [employer] # SUBSCRIBER ID Primary: Secondary: MEDICARE [employer] [place] [id number] Admitting Diagnosis: 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] Order Date: Apr 09, 2025 Case Management Food Analyst Consult (Order ID: [id number]) Diagnosis: Priority: Routine Expected Date: Expiration Date: [...] Collapse All INFECTIOUS DISEASE Progress Note Won Dnenis 1980 [id number] Date of Consult: 04/10/2025 Admission Date: 04/04/2025 [...] which prompted him to seek treatment at [facility]. He is known to Dr. Dean. [...] wound 05/09/25. HDS, on Heparin gtt. Currently [facility] has been asked to manage the [...] Jr., MD, 20 mg at 04/09/25906 heparin 45207 units/250 mL (100 units/mL) in 0.45 % [...] vancomycin 2750 mg/500 mL 0.9% NS IVPB ([facility]) Ordering Provider: Mario Crowley, DO [...] Units Date/Time FL C Arm During Surgery [[id number]] Resulted: 04/07/252137 Updated: 04/07/252137 Narrative: This procedure was auto-finalized with no dictation required. MRI Tibia Fibula Right With & Without Contrast [[id number]] Collected: 04/07/2538 Updated: 04/07/25 1001 Narrative: MRI [...] Buenrostro 04/07/2025 9:58 AM EDT Workstation ID: [id number] Impression: Recurrent Right BKA stump abscess/cellulitis- this [...] discussed his disposition with the pharmacist at [facility] today. I will sign off Outpatient orders: 1. Outpatient intravenous antibiotic therapy: Daptomycin 800 mg IV daily to be supplied by [facility] 2. Home health to perform [...] 04/10/251323 Creation Time: 04/10/251323 Signed [facility] PROGRESS NOTE Patient [...] Date/Time Wound Culture - Swab, Leg, Right [[id number]] (Abnormal) (Susceptibility) Collected: 04/07/252106 Lab Status: Final [...] Row Name 04/06/25 1143 Sit-Stand Transfer Sit-Stand Alger (Transfers) modified independence - Comment, (Sit-Stand Transfer) Pt stood from recliner. Not holding onto walker, pt able to pull his pants up while balancing on his one leg. -LM Row Name 04/06/25 1143 Gait/Stairs (Locomotion) Alger Level (Gait) modified independence - Distance in [...] Motion bilateral lower extremity ROM WFL -LM [facility] Name 04/06/25 1145 Strength Comprehensive (MMT) General Manual Muscle Testing (MMT) Assessment no strength deficits identified BLEs -LM [facility] Name 04/06/25 1145 Balance Balance Assessment [...] Therapist Goals/Plan No documentation. Clinical Impression [facility] 04/06/25 1146 Pain Pretreatment Pain Rating 0/10 - no pain -LM Posttreatment Pain Rating 0/10 - no pain -LM [facility] 04/06/25 1146 Plan of Care Review Plan of Care Reviewed With patient -LM Outcome Evaluation PT evaluation completed. Pt demonstrated independence with all mobility including ambulating 100 feet using rw - no unsteadiness noted. Pt reports he feels at baseline and doesn't think he needs skilled PT while here. Recommend home at d/c. PT signing off. -LM [facility] Name 04/06/25 1146 Therapy Assessment/Plan (PT) Criteria for Skilled Interventions Met (PT) no;no problems identified which require skilled intervention -LM Therapy Frequency (PT) evaluation only -LM Predicted Duration of Therapy Intervention (PT) Eval Only -LM [facility] Name 04/06/25 1146 Vital Signs Pretreatment Heart Rate (beats/min) 86 -LM Posttreatment Heart Rate (beats/min) 96 -LM Pre SpO2 (%) 95 -LM O2 Delivery Pre Treatment room air -LM Post SpO2 (%) 96 -LM O2 Delivery Post Treatment room air -LM Pre Patient Position Sitting -LM Post Patient Position Sitting -LM [facility] Name 04/06/25 1146 Positioning and Restraints [...] Nurse Physical Therapy Education Title: PT OT BALE SEWER Therapies (Done) Topic: Physical Therapy (Done) Point: Mobility training (Done) Learning Progress Summary Patient Acceptance, E, VU,DU by at 04/06/2025 1147 Point: Precautions (Done) Learning Progress Summary Patient Acceptance, E, VU,DU by at 04/06/2025 1147 User Cabrera Initials Effective Dates Name Provider Type [facility] 01/24/25 - Susan Cavazos, PT [...] Description Service Date Service Provider Modifiers Qty [id number] PT EVAL LOW COMPLEXITY 3 04/06/2025 Susan Cavazos, PT GP 1 PT G-Codes Outcome Measure Options: AM-PAC 6 Clicks Basic Mobility (PT) AM-PAC 6 Clicks Score (PT): 23 PT Discharge Summary Anticipated Discharge Disposition (PT): home uSsan Cavazos PT 04/06/2025 documented in this encounter [...] mg Daily 04/05/2025 -- Route: Oral heparin 00038 units/250 mL (100 units/mL) in 0.45 % [...] Dean MD April 21 vs April 22 [facility] [address], [address] [facility], [address] Please schedule at [phone] VONDA Garcia 04/11/25 08:32 EDT Cosigned by Sushil Dean Jr., MD at 04/19/2025 10:33 AM EDT Associated attestation - Sushil Dean Jr., MD - 04/19/2025 10:33 AM EDT I have reviewed this documentation and agree. * Rosario Hill APRN - 04/10/2025 1:24 PM EDT Images from the original note were not included. [facility] PROGRESS NOTE Patient Name: Won [...] Date/Time Wound Culture - Swab, Leg, Right [[id number]] (Abnormal) (Susceptibility) Collected: 04/07/252106 Lab Status: Final [...] mg Daily 04/05/2025 -- Route: Oral heparin 45470 units/250 mL (100 units/mL) in 0.45 % [...] Dean MD April 21 vs April 22 [facility] [address] [place], [address] [facility], [address] Please schedule at [phone] VONDA Garcia 04/10/25 09:01 EDT Cosigned by Sushil Dean Jr., MD at 04/19/2025 10:33 AM EDT Associated attestation - Sushil Dean Jr., MD - 04/19/2025 10:33 AM EDT I have reviewed this documentation and agree. * Carlton Mead MD - 04/10/2025 7:38 AM EDT Images from the original note were not included. INFECTIOUS DISEASE Progress Note Won Dennis 1980 [id number] Date of Consult: 04/10/2025 Admission Date: 04/04/2025 [...] which prompted him to seek treatment at [facility]. He is known to Dr. Dean. [...] wound 05/09/25. HDS, on Heparin gtt. Currently [facility] has been asked to manage the [...] IRRIGATION; Surgeon: Sushil Dean Jr., MD; Location: [facility] OR; Service: Orthopedics; Laterality: Right; PLACEMENT OF WOUND VAC Right 04/07/2025 Procedure: WOUND VACUUM ASSISTED CLOSURE; Surgeon: Sushil Dean Jr., MD; Location: [facility] OR; Service: Orthopedics; Laterality: Right; WOUND CLOSURE [...] Jr., MD, 20 mg at 04/09/25906 heparin 67648 units/250 mL (100 units/mL) in 0.45 % [...] Units Date/Time FL C Arm During Surgery [[id number]] Resulted: 04/07/252137 Updated: 04/07/252137 Narrative: This procedure was auto-finalized with no dictation required. MRI Tibia Fibula Right With & Without Contrast [[id number]] Collected: 04/07/25937 Updated: 04/07/25 100 Narrative: MRI [...] Buenrostro 04/07/2025 9:58 AM EDT Workstation ID: [id number] Impression: Recurrent Right BKA stump abscess/cellulitis- this [...] discussed his disposition with the pharmacist at [facility] today. I will sign off Outpatient orders: 1. Outpatient intravenous antibiotic therapy: Daptomycin 800 mg IV daily to be supplied by [facility] 2. Home health to perform [...] MD 04/10/2025 07:38 EDT * Larisa Hamilton [facility] - 04/10/2025 7:17 [...] original note were not included. [facility] PROGRESS NOTE Patient Name: Won [...] Date/Time Wound Culture - Swab, Leg, Right [[id number]] (Abnormal) Collected: 04/07/252106 Lab Status: Preliminary result [...] Jason Álvarez DO 04/09/25 * Larisa [facility] [...] -- Admin Instructions: Open Order & [facility] Electrolyte Replacement Protocol Algorithm to [...] mg Daily 04/05/2025 -- Route: Oral heparin 89966 units/250 mL (100 units/mL) in 0.45 % [...] -- Admin Instructions: Open Order & [facility] Electrolyte Replacement Protocol Algorithm to [...] in 2 weeks for incision check, radiographs [facility] [address] [place], [address] [facility], [address] Please schedule at [phone] VONDA Garcia 04/09/25 09:18 EDT Cosigned by Sushil Dean Jr., MD at 04/19/2025 10:33 AM EDT Associated attestation - Sushil Dean Jr., MD - 04/19/2025 10:33 AM EDT I have reviewed this documentation and agree. * Carlton Mead MD - 04/09/2025 8:25 AM EDT Images from the original note were not included. INFECTIOUS DISEASE Progress Note Won Dennis 1980 [id number] Date of Consult: 04/09/2025 Admission Date: 04/04/2025 [...] which prompted him to seek treatment at [facility]. He is known to Dr. Dean. [...] wound 05/09/25. HDS, on Heparin gtt. Currently [facility] has been asked to manage the [...] IRRIGATION; Surgeon: Sushil Dean Jr., MD; Location: [facility]; Service: Orthopedics; Laterality: Right; PLACEMENT OF WOUND VAC Right 04/07/2025 Procedure: WOUND VACUUM ASSISTED CLOSURE; Surgeon: Sushil Dean Jr., MD; Location: [facility] OR; Service: Orthopedics; Laterality: Right; History [...] MD, 20 mg at 04/08/25 0800 heparin 56398 units/250 mL (100 units/mL) in 0.45 % [...] Units Date/Time FL C Arm During Surgery [[id number]] Resulted: 04/07/252137 Updated: 04/07/252137 Narrative: This procedure was auto-finalized with no dictation required. MRI Tibia Fibula Right With & Without Contrast [[id number]] Collected: 04/07/25 0938 Updated: 04/07/25 1001 Narrative: [...] Chitra 04/07/2025 9:58 AM EDT Workstation ID: [id number] Impression: Recurrent Right BKA stump abscess/cellulitis- this [...] original note were not included. [facility] PROGRESS NOTE Patient Name: Won [...] Buenrostro 04/07/2025 9:58 AM EDT Workstation ID: [id number] I have personally reviewed the therapy plans: [...] Jason Álvarez, DO 04/08/25 * Hamilton, Larisa, [facility] - 04/08/2025 11:48 [...] -- Admin Instructions: Open Order & [facility] Electrolyte Replacement Protocol Algorithm to [...] mg Daily 04/05/2025 -- Route: Oral heparin 42943 units/250 mL (100 units/mL) in 0.45 % [...] INFECTIOUS DISEASE Progress Note Won Dennis 1980 [id number] Date of Consult: 04/08/2025 Admission Date: 04/04/2025 [...] which prompted him to seek treatment at [facility]. He is known to Dr. Dean. [...] wound 05/09/25. HDS, on Heparin gtt. Currently [facility] has been asked to manage the [...] IRRIGATION; Surgeon: Sushil Dean Jr., MD; Location: [facility] OR; Service: Orthopedics; Laterality: Right; PLACEMENT OF WOUND VAC Right 04/07/2025 Procedure: WOUND VACUUM ASSISTED CLOSURE; Surgeon: Sushil Dean Jr., MD; Location: [facility] OR; Service: Orthopedics; Laterality: Right; History [...] Oral, Q6H PRN, 500 mg at 04/06/25 0504 OR acetaminophen (TYLENOL) 160 MG/5ML oral solution [...] Jr., MD, 20 mg at 04/07/25950 heparin 31798 units/250 mL (100 units/mL) in 0.45 % [...] Sushil Dena Jr., MD, 100 mg at 04/06/252101 [COMPLETED] Insert Peripheral IV, , , Once AND sodium chloride 0.9 % flush 10 mL, 10 mL, Intravenous, PRN, Sushil Dean Jr., MD sodium chloride 0.9 % flush 10 mL, 10 mL, Intravenous, Q12H, Sushli Dean Jr., MD, 10 mL at 04/07/25951 sodium chloride 0.9 % flush 10 mL, 10 mL, Intravenous, PRN, Ssuhil Dean Jr., MD sodium chloride 0.9 % [...] vancomycin 2750 mg/500 mL 0.9% NS IVPB ([facility]) Ordering Provider: Mario Crowley, DO [...] Units Date/Time FL C Arm During Surgery [[id number]] Resulted: 04/07/252137 Updated: 04/07/252137 Narrative: This procedure was auto-finalized with no dictation required. 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 (Treated by ID in [place] Dr. Harris). Dr. Torres treated him with [...] original note were not included. [facility] PROGRESS NOTE Patient Name: Won [...] Buenrostro 04/07/2025 9:58 AM EDT Workstation ID: [id number] I have personally reviewed the therapy plans: [...] Jason DO Preeti 04/07/25 * Larisa Hamilton, [facility] - 04/07/2025 11:56 [...] INFECTIOUS DISEASE Progress Note Won Dennis 1980 [id number] Date of Consult: 04/07/2025 Admission Date: 04/04/2025 [...] which prompted him to seek treatment at [facility]. He is known to Dr. Dean. [...] wound 05/09/25. HDS, on Heparin gtt. Currently [facility] has been asked to manage the [...] MD, 20 mg at 04/06/25 0900 heparin 90157 units/250 mL (100 units/mL) in 0.45 % [...] capsule 0.4 mg, 0.4 mg, Oral, Nightly, Leonoar Shepherd MD, 0.4 mg at 04/06/25 2101 [...] With & Without Contrast - In process [[id number]] Resulted: 04/07/25828 Updated: 04/07/25828 This result has not been signed. Information might be incomplete. MRI Tibia Fibula Right With & Without Contrast [[id number]] Collected: 04/04/252256 Updated: 04/04/253 Narrative: MRI TIBIA [...] represent a small area of phlegmonous change (mtizrn08 image 10) measuring approximately 1.6 cm which [...] MD 04/04/2025 11:00 PM EDT Workstation ID: [id number] Impression: 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 (Treated by ID in [place] Dr. Harris). Dr. Torres treated him with [...] -- Admin Instructions: Open Order & [facility] Electrolyte Replacement Protocol Algorithm to [...] mg Daily 04/05/2025 -- Route: Oral heparin 48544 units/250 mL (100 units/mL) in 0.45 % [...] -- Admin Instructions: Open Order & [facility] Electrolyte Replacement Protocol Algorithm to [...] original note were not included. [facility] PROGRESS NOTE Patient Name: Won [...] MD 04/04/2025 11:00 PM EDT Workstation ID: [id number] I have personally reviewed the therapy plans: [...] mg Daily 04/05/2025 -- Route: Oral heparin 60210 units/250 mL (100 units/mL) in 0.45 % [...] -- Admin Instructions: Open Order & [facility] Electrolyte Replacement Protocol Algorithm to [...] -- Admin Instructions: Open Order & [facility] Electrolyte Replacement Protocol Algorithm to [...] INFECTIOUS DISEASE follow up. Won Dennis 1980 [id number] Date of Consult: 04/06/2025 Admission Date: 04/04/2025 [...] which prompted him to seek treatment at [facility]. He is known to Dr. Dean. [...] wound 05/09/25. HDS, on Heparin gtt. Currently [facility] has been asked to manage the [...] MD, 20 mg at 04/06/25 0900 heparin 12563 units/250 mL (100 units/mL) in 0.45 % [...] to dose vancomycin Status: Discontinued Ordering Provider: eLonora Shepherd MD Not Applicable Continuous PRN 04/04/25200404/05/25 [...] Tibia Fibula Right With & Without Contrast [[id number]] Collected: 04/04/252256 Updated: 04/04/252302 Narrative: MRI TIBIA [...] represent a small area of phlegmonous change (kwgehi03 image 10) measuring approximately 1.6 cm which [...] MD 04/04/2025 11:00 PM EDT Workstation ID: [id number] Impression: 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 (Treated by ID in [place] Dr. Harris). Dr. Torres treated him with [...] original note were not included. [facility] PROGRESS NOTE Patient Name: Won [...] MD 04/04/2025 11:00 PM EDT Workstation ID: [id number] I have personally reviewed the therapy plans: [...] original note were not included. [facility] HISTORY AND PHYSICAL Patient Name: [...] MD 04/04/2025 11:00 PM EDT Workstation ID: [id number] Assessment & Plan Assessment & Plan Won [...] ORTHOPEDIC SURGERY [facility], [facility] [address] [address] Orthopedic Consult Patient: Won Dennis Date of [...] was evaluated in the emergency department in [place], was discharged with instructions for follow-up. He [...] tablet by mouth Daily. 04/03/2025 Morning Lactobacillus-Inulin ([facility]) capsule Take 200 mg by mouth Daily. [...] MD 04/04/2025 11:00 PM EDT Workstation ID: [id number] Assessment: Right BKA infection 44-year-old male with [...] DISEASE CONSULT/INITIAL HOSPITAL VISIT Won Dennis 1980 [id number] Date of Consult: 04/05/2025 Admission Date: 04/04/2025 [...] which prompted him to seek treatment at [facility]. He is known to Dr. Dean. [...] wound 05/09/25. HDS, on Heparin gtt. Currently [facility] has been asked to manage the [...] Leonora Shepherd MD, 40 mg at 04/04/25 0777 sennosides-docusate (PERICOLACE) 8.6-50 MG per tablet 2 [...] MD, 20 mg at 04/05/25 09 heparin 16036 units/250 mL (100 units/mL) in 0.45 % [...] Tibia Fibula Right With & Without Contrast [[id number]] Collected: 04/04/252256 Updated: 04/04/252302 Narrative: MRI TIBIA [...] represent a small area of phlegmonous change (dbupbm58 image 10) measuring approximately 1.6 cm which [...] MD 04/04/2025 11:00 PM EDT Workstation ID: [id number] Impression: 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 (Treated by ID in [place] Dr. Harris). Dr. Torres treated him with [...] Jr., MD - 04/08/2025 3:51 PM EDT [facility] OPERATIVE REPORT PATIENT NAME: Won Dennis DATE OF : 1980 PREOP DIAGNOSIS: Right Right below-knee amputation infection POSTOP DIAGNOSIS: Same. PROCEDURE: Right Right 79753: Secondary closure below-knee amputation SURGEON: Sushil Dean MD OPERATIVE TEAM: Business Solutions Analyst: Susi Grullon RN Scrub Person: Mary Paredes Scrub Person Extra: Hortencia Toribio Other: Katt Gotti RN; Charis Neville RN ANESTHETIST: Anesthesiologist: Ulises Hoffman MD POWDER COMPOUNDER: Stan Casillas CRNA Student Nurse Upper Extremity Surgeon: Karol Albert SRNA ANESTHESIA: Choice ESTIMATED BLOOD [...] CULTURE (Canceled) Sushil Dean Jr., MD 04/08/25 2680 Description: RIGHT LEG DEEP WOUND FOR CULTURE [...] PM EDT [facility], [place] [address] OPERATIVE REPORT PATIENT NAME: Won Dennis DATE OF : 1980 PREOP DIAGNOSIS: Right Right below knee amputation stump infection POSTOP DIAGNOSIS: Same. PROCEDURE: Right Right 56996: Incision and drainage of surgical site infection 51906: Debridement of skin, subcutaneous tissue, muscle 40182: Wound vacuum-assisted closure SURGEON: Sushil Dean MD OPERATIVE TEAM: Business Solutions Analyst: Anum Sanchez RN Scrub Person: Hortencia Toribio; Gerald Ivey BROKE MAN: Anesthesiologist: Luci Alonso DO ANESTHESIA: General ESTIMATED [...] ago swellling of the area. seen at [facility] yesterday for CT and US, here [...] this chart in the absence of a care information associate. No orders to display RADIOLOGY: [x] Radiologist's [...] changes. DEBRA has spoke with Dena at [facility] today multiple times to [...] with KELLEE and given themhis Medicare number [id number], she sent it to Admission. DERBA spoke with Kerri, with [facility], and explained that he had Medicare A and B. However, it will not cover home infusion. It will be $64.00 a day out of packet. Patients can go to the Infusion center at [facility], and it will cover the [...] first. CM faxed the orders over to [facility] at [phone]. CM will follow up with them tomorrow [...] 04/09/2025 2:51 PM EDT Continued Stay Note [facility] Patient Name: Won Dennis Today's Date: 04/09/2025 Admit Date: 04/04/2025 Plan: Home Discharge Plan Row Name 04/09/25 1311 Plan Plan Home Patient/Family in Agreement with Plan yes Plan Comments CM spoke with patient at bedside today. Wheelchair from [employer] is at bedside. Patient getting PICC line [...] note were not included. 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 CM will [facility]. He is not current with home health services. PCP is Dr. Jordan. Insurance is [facility] Medicaid [place]. Patient discharge plan is home [...] - 10.80 10*3/mm3 04/11/2025 4:02 AM EDT [facility] LABORATORY RBC 4.70 4.14 - 5.80 10*6/mm3 04/11/2025 4:02 AM [facility] Hemoglobin 12.8(L) 13.0 - 17.7 g/dL 04/11[facility]2025 4[facility] Hematocrit 40.5 37.5 - 51.0 % 04/11/2025 4:02 AM [facility] MCV 86.2 79.0 - 97.0 fL 04/11/2025 4:02 [facility] MCH 27.2 26.6 - 33.0 pg 04/11/2025 4:02 AM [facility] MCHC 31.6 31.5 - 35.7 g/dL 04/11/2025 4:02 AM [facility] RDW 12.9 12.3 - 15.4 % 04/11/2025 4:02 AM [facility] RDW-SD 40.5 37.0 - 54.0 fl 04/11/2025 4:02 AM [facility] MPV 9.2 6.0 - 12.0 fL 04/11/2025 4:02 AM [facility] Platelets 267 140 - 450 10*3/mm3 04/11/2025 4:02 AM [facility] Neutrophil % 59.5 42.7 - 76.0 % 04/11/2025 4:02 AM [facility] Lymphocyte % 26.3 19.6 - 45.3 % 04/11/2025 4:02 AM [facility] Monocyte % 9.3 5.0 - 12.0 % 04/11[facility]2025 4[facility] Eosinophil % 4.1 0.3 - 6.2 % 04/11/2025 4:02 [facility] Basophil % 0.4 0.0 - 1.5 % 04/11/2025 4:02 [facility] Immature Grans % 0.4 0.0 - 0.5 % 04/11/2025 4:02 AM [facility] Neutrophils, Absolute 4.69 1.70 - 7.00 10*3/mm3 04/11/2025 4:02 AM EDT [facility] Lymphocytes, Absolute 2.07 0.70 - 3.10 10*3/mm3 04/11/2025 4:02 AM EDT [facility] Monocytes, Absolute 0.73 0.10 - 0.90 10*3/mm3 04/11/2025 4:02 AM EDT [facility] Eosinophils, Absolute 0.32 0.00 - 0.40 10*3/mm3 04/11/2025 4:02 AM EDT [facility] Basophils, Absolute 0.03 0.00 - 0.20 10*3/mm3 04/11/2025 4:02 AM EDT [facility] Immature Grans, Absolute 0.03 0.00 - 0.05 10*3/mm3 04/11/2025 4:02 AM EDT [facility] nRBC 0.0 0.0 - 0.2 /100 WBC 04/11/2025 4:02 AM EDT [facility] Blood Venipuncture / Unknown 04/11/2025 3:40 AM EDT 04/11/2025 3:59 AM EDT us Sushil Dean Jr., MD LAB BLOOD ORDERABLES Fi nal Result [facility]
[address] [place] [address], * (ABNORMAL) Comprehensive Metabolic Panel (04/11/2025 3:40 AM EDT) Glucose 108(H) 65 - 99 mg/dL 04/11/2025 4:19 AM EDT [facility] BUN 12.5 6.0 - 20.0 mg/dL 04/11/2025 4:19 AM EDT [facility] Creatinine 0.68(L) 0.76 - 1.27 mg/dL 04/11/2025 4:19 AM [facility] Sodium 140 136 - 145 mmol/L 04/11/2025 4:19 AM [facility] Potassium 3.8 3.5 - 5.2 mmol/L 04/11/2025 4:19 AM [facility] Chloride 105 98 - 107 mmol/L 04/11/2025 4:19 AM [facility] CO2 28.2 22.0 - 29.0 mmol/L 04/11/2025 4:19 AM [facility] Calcium 8.2(L) 8.6 - 10.5 mg/dL 04/11/2025 4:19 AM [facility] Total Protein 6.1 6.0 - 8.5 g/dL 04/11/2025 4:19 AM [facility] Albumin 3.1(L) 3.5 - 5.2 g/dL 04/11/2025 4:19 AM [facility] ALT (SGPT) 52(H) 1 - 41 U/L 04/11/2025 4:19 AM [facility] AST (SGOT) 40 1 - 40 U/L 04/11/2025 4:19 AM [facility] Alkaline Phosphatase 99 39 - 117 U/L 04/11/2025 4:19 AM [facility] Total Bilirubin 0.2 0.0 - 1.2 mg/dL 04/11/2025 4:19 AM [facility] Globulin 3.0 gm/dL 04/11/2025 4:19 AM [facility] Comment:Calculated Result A/G Ratio 1.0 g/dL 04/11/2025 4:19 AM [facility] BUN/Creatinine Ratio 18.4 7.0 - 25.0 04/11/2025 4:19 AM [facility] Anion Gap 6.8 5.0 - 15.0 mmol/L 04/11/2025 4:19 AM [facility] eGFR 117.5 >60.0 mL/min/1.7 3 04/11/2025 4:19 AM EDT [facility] Blood Venipuncture / Unknown 04/11/2025 3:40 AM EDT 04/11/2025 3:56 AM EDT [facility] - 04/11/2025 4:19 AM EDT GFR [...] include race as a factor Rosario Hill DIETARY SERVICE AIDE LAB BLOOD ORDERABLES Final Result [facility]
[address] [place] [address], * (ABNORMAL) CBC Auto Differential (04/10/2025 3:46 AM EDT) WBC 9.60 3.40 - 10.80 10*3/mm3 04/10/2025 3:56 AM EDT [facility] RBC 4.67 4.14 - 5.80 10*6/mm3 04/10/2025 3:56 AM EDT [facility] Hemoglobin 12.9(L) 13.0 - 17.7 g/dL 04/10/2025 3:56 AM EDT [facility] Hematocrit 40.1 37.5 - 51.0 % 04/10/2025 3:56 AM EDT [facility] MCV 85.9 79.0 - 97.0 fL 04/10/2025 3:56 AM EDT [facility] MCH 27.6 26.6 - 33.0 pg 04/10/2025 3:56 AM EDT [facility] MCHC 32.2 31.5 - 35.7 g/dL 04/10/2025 3:56 [facility] RDW 12.9 12.3 - 15.4 % 04/10/2025 3:56 AM [facility] RDW-SD 40.5 37.0 - 54.0 fl 04/10/2025 3:56 AM [facility] MPV 9.5 6.0 - 12.0 fL 04/10/2025 3:56 AM EDT [facility] Platelets 227 140 - 450 10*3/mm3 04/10/2025 3:56 [facility] Neutrophil % 59.1 42.7 - 76.0 % 04/10/2025 3:56 AM [facility] Lymphocyte % 29.0 19.6 - 45.3 % 04/10/2025 3:56 AM [facility] Monocyte % 8.1 5.0 - 12.0 % 04/10/2025 3:56 [facility] Eosinophil % 3.2 0.3 - 6.2 % 04/10/2025 3:56 [facility] Basophil % 0.4 0.0 - 1.5 % 04/10/2025 3:56 [facility] Immature Grans % 0.2 0.0 - 0.5 % 04/10/2025 3:56 AM [facility] Neutrophils, Absolute 5.67 1.70 - 7.00 10*3/mm3 04/10/2025 3:56 [facility] Lymphocytes, Absolute 2.78 0.70 - 3.10 10*3/mm3 04/10/2025 3:56 AM [facility] Monocytes, Absolute 0.78 0.10 - 0.90 10*3/mm3 04/10/2025 3:56 [facility] Eosinophils, Absolute 0.31 0.00 - 0.40 10*3/mm3 04/10/2025 3:56 [facility] Basophils, Absolute 0.04 0.00 - 0.20 10*3/mm3 04/10/2025 3:56 AM EDT [facility] Immature Grans, Absolute 0.02 0.00 - 0.05 10*3/mm3 04/10/2025 3:56 AM EDT [facility] nRBC 0.0 0.0 - 0.2 /100 WBC 04/10/2025 3:56 AM EDT [facility] Blood Venipuncture / Unknown 04/10/2025 3:46 AM EDT 04/10/2025 3:53 AM EDT us Jason Álvarez DO LAB BLOOD ORDERABLES Final Resul t [facility]
[address] [place] [address], * (ABNORMAL) Basic Metabolic Panel (04/10/2025 3:46 AM EDT) Glucose 125(H) 65 - 99 mg/dL 04/10/2025 4:20 AM EDT [facility] BUN 15.9 6.0 - 20.0 mg/dL 04/10/2025 4:20 AM EDT [facility] Creatinine 0.77 0.76 - 1.27 mg/dL 04/10/2025 4:20 AM EDT [facility] Sodium 137 136 - 145 mmol/L 04/10/2025 4:20 AM EDT [facility] Potassium 3.9 3.5 - 5.2 mmol/L 04/10/2025 4:20 AM EDT [facility] Chloride 102 98 - 107 mmol/L 04/10/2025 4:20 AM EDT [facility] CO2 26.9 22.0 - 29.0 mmol/L 04/10/2025 4:20 AM EDT [facility] Calcium 7.9(L) 8.6 - 10.5 mg/dL 04/10/2025 4:[facility] BUN/Creatinine Ratio 20.6 7.0 - 25.0 04/10/2025 4:20 AM EDT [facility] Anion Gap 8.1 5.0 - 15.0 mmol/L 04/10/2025 4:20 AM EDT [facility] eGFR 113.2 >60.0 mL/min/1.7 3 04/10/2025 4:20 AM EDT [facility] Blood Venipuncture / Unknown 04/10/2025 3:46 AM EDT 04/10/2025 3:52 AM EDT Narrative [facility] - 04/10/2025 4:20 AM [...] DO LAB BLOOD ORDERABLES Final Resul t [facility]
[address] [place] [address], * Heparin Anti-Xa (04/10/2025 3:46 AM EDT) Heparin Anti-Xa (UFH) 0.35 0.30 - 0.70 IU/ml 04/10/2025 4:23 AM EDT [facility] Blood Venipuncture / Unknown 04/10/2025 3:46 AM EDT 04/10/2025 3:53 AM EDT Larisa Hamilton [facility] LAB BLOOD ORDERABLES Final R esult [facility]
[address] [place] [address], * Heparin Anti-Xa (04/09/2025 10:05 AM EDT) Heparin Anti-Xa (UFH) 0.36 0.30 - 0.70 IU/ml 04/09/2025 11:12 AM EDT [facility] Blood Venipuncture / Unknown 04/09/2025 10:05 AM EDT 04/09/2025 10:47 AM EDT Larisa Hamilton [facility] LAB BLOOD ORDERABLES Final R esult [facility]
[address] [place] [address], * (ABNORMAL) CBC Auto Differential (04/09/2025 4:18 AM EDT) WBC 11.00(H) 3.40 - 10.80 10*3/mm3 04/09/2025 4:50 AM EDT [facility] RBC 4.70 4.14 - 5.80 10*6/mm3 04/09/2025 4:50 AM EDT [facility] Hemoglobin 13.0 13.0 - 17.7 g/dL 04/09/2025 4:50 AM EDT [facility] Hematocrit 40.4 37.5 - 51.0 % 04/09/2025 4:50 AM EDT [facility] MCV 86.0 79.0 - 97.0 fL 04/09/2025 4:50 AM EDT [facility] MCH 27.7 26.6 - 33.0 pg 04/09/2025 4:50 AM EDT [facility] MCHC 32.2 31.5 - 35.7 g/dL 04/09/2025 4:50 AM EDT [facility] RDW 12.8 12.3 - 15.4 % 04/09/2025 4:50 AM [facility] RDW-SD 39.9 37.0 - 54.0 fl 04/09/2025 4:50 AM [facility] MPV 10.0 6.0 - 12.0 fL 04/09/2025 4:50 AM [facility] Platelets 211 140 - 450 10*3/mm3 04/09/2025 4:50 AM [facility] Neutrophil % 74.8 42.7 - 76.0 % 04/09/2025 4:50 AM [facility] Lymphocyte % 15.4(L) 19.6 - 45.3 % 04/09/2025 4:50 AM [facility] Monocyte % 8.5 5.0 - 12.0 % 04/09/2025 4:50 AM [facility] Eosinophil % 0.6 0.3 - 6.2 % 04/09/2025 4:50 AM [facility] Basophil % 0.4 0.0 - 1.5 % 04/09/2025 4:50 AM [facility] Immature Grans % 0.3 0.0 - 0.5 % 04/09/2025 4:50 AM [facility] Neutrophils, Absolute 8.23(H) 1.70 - 7.00 10*3/mm3 04/09/2025 4:50 AM [facility] Lymphocytes, Absolute 1.69 0.70 - 3.10 10*3/mm3 04/09/2025 4:50 AM [facility] Monocytes, Absolute 0.94(H) 0.10 - 0.90 10*3/mm3 04/09/2025 4:50 AM [facility] Eosinophils, Absolute 0.07 0.00 - 0.40 10*3/mm3 04/09/2025 4:50 AM [facility] Basophils, Absolute 0.04 0.00 - 0.20 10*3/mm3 04/09/2025 4:50 AM [facility] Immature Grans, Absolute 0.03 0.00 - 0.05 10*3/mm3 04/09/2025 4:50 AM EDT [facility] nRBC 0.0 0.0 - 0.2 /100 WBC 04/09/2025 4:50 AM EDT [facility] Blood Venipuncture / Unknown 04/09/2025 4:18 AM EDT 04/09/2025 4:31 AM EDT Sushil Dean Jr., MD LAB BLOOD ORDERABLES Fi nal Result [facility]
[address] [place] [address], * Heparin Anti-Xa (04/09/2025 4:18 AM EDT) Heparin Anti-Xa (UFH) 0.41 0.30 - 0.70 IU/ml 04/09/2025 4:53 AM EDT [facility] Blood Venipuncture / Unknown 04/09/2025 4:18 AM EDT 04/09/2025 4:31 AM EDT Una LundbergD LAB BLOOD ORDERABLES Final R esult [facility]
[address] [place] [address], * (ABNORMAL) Basic Metabolic Panel (04/09/2025 4:18 AM EDT) Glucose 147(H) 65 - 99 mg/dL 04/09/2025 5:33 AM EDT [facility] BUN 23.0(H) 6.0 - 20.0 mg/dL 04/09/2025 5:33 AM EDT [facility] Creatinine 1.15 0.76 - 1.27 mg/dL 04/09/2025 5:33 AM EDT [facility] Sodium 135(L) 136 - 145 mmol/L 04/09/2025 5:33 AM EDT [facility] Potassium 4.2 3.5 - 5.2 mmol/L 04/09/2025 5:33 AM EDT [facility] Chloride 100 98 - 107 mmol/L 04/09/2025 5:33 AM EDT [facility] CO2 26.0 22.0 - 29.0 mmol/L 04/09/2025 5:33 AM EDT [facility] Calcium 8.2(L) 8.6 - 10.5 mg/dL 04/09/2025 5:33 AM EDT [facility] BUN/Creatinine Ratio 20.0 7.0 - 25.0 04/09/2025 5:33 AM EDT [facility] Anion Gap 9.0 5.0 - 15.0 mmol/L 04/09/2025 5:33 AM EDT [facility] eGFR 80.5 >60.0 mL/min/1.7 3 04/09/2025 5:33 AM EDT [facility] Blood Venipuncture / Unknown 04/09/2025 4:18 AM EDT 04/09/2025 4:29 AM EDT [facility] - 04/09/2025 5:33 AM EDT GFR [...] Jr., MD LAB BLOOD ORDERABLES nal Result [facility]
[address] [place] [address], * Wound Culture - Swab, Leg, Right (04/08/2025 3:40 PM EDT) Wound Culture No growth at 3 days ALIZA 04/11/2025 10:40 AM EDT [facility] Gram Stain Few (2+) WBCs seen 04/11/2025 10:40 AM EDT [facility] Gram Stain No organisms seen 04/11/2025 10:40 AM EDT [facility] Swab Structure of right lower limb / Unknown 04/08/2025 3:40 PM EDT 04/08/2025 8:05 PM EDT Sushil Dean Jr., MD MICROBIOLOGY - GENERAL ORDERABLES Final Result Performing Organization Address City/[facility]/ZIP Co de Phone Number [facility]
[address] [place] [address], [facility]
[address] [place] [address], * Anaerobic Culture - Swab, Leg, Right (04/08/2025 3:40 PM EDT) Pathologist [facility] Anaerobic Culture No anaerobes isolated at 5 days ALIZA 04/13/2025 7:24 AM EDT [facility] Swab Structure of right lower limb / Unknown 04/08/2025 3:40 PM EDT 04/08/2025 8:05 PM EDT Sushil Dean Jr., MD MICROBIOLOGY - GENERAL ORDERABLES Final Result [facility]
[address] [place] [address], * Scan Slide (04/08/2025 8:41 AM EDT) RBC Morphology Normal Normal 04/08/2025 11:02 AM EDT [facility] WBC Morphology Normal Normal 04/08/2025 11:02 AM EDT [facility] Platelet Estimate Adequate Normal 04/08/2025 11:02 AM EDT [facility] Clumped Platelets Present None Seen 04/08/2025 11:02 AM EDT [facility] Blood Venipuncture / Unknown 04/08/2025 8:41 AM EDT 04/08/2025 9:10 AM EDT Una Perla PharmD LAB BLOOD ORDERABLES Final R esult [facility]
[address] [place] [address], * (ABNORMAL) CBC Auto Differential (04/08/2025 8:41 AM EDT) WBC 10.07 3.40 - 10.80 10*3/mm3 04/08/2025 11:02 AM EDT [facility] RBC 5.01 4.14 - 5.80 10*6/mm3 04/08/2025 11:02 AM EDT [facility] Hemoglobin 14.0 13.0 - 17.7 g/dL 04/08/2025 11:02 AM EDT [facility] Hematocrit 42.7 37.5 - 51.0 % 04/08/2025 11:02 AM EDT [facility] MCV 85.2 79.0 - 97.0 fL 04/08/2025 11:02 AM EDT [facility] MCH 27.9 26.6 - 33.0 pg 04/08/2025 11:02 AM EDT [facility] MCHC 32.8 31.5 - 35.7 g/dL 04/08/2025 11:02 AM EDT [facility] RDW 12.6 12.3 - 15.4 % 04/08/2025 11:02 AM EDT [facility] RDW-SD 38.9 37.0 - 54.0 fl 04/08/2025 11:02 AM [facility] MPV 11.0 6.0 - 12.0 fL 04/08/2025 11:02 AM [facility] Platelets 118(L) 140 - 450 10*3/mm3 04/08/2025 11:02 AM [facility] Neutrophil % 85.1(H) 42.7 - 76.0 % 04/08/2025 11:02 AM [facility] Lymphocyte % 9.3(L) 19.6 - 45.3 % 04/08/2025 11:02 AM [facility] Monocyte % 4.6(L) 5.0 - 12.0 % 04/08/2025 11:02 AM [facility] Eosinophil % 0.3 0.3 - 6.2 % 04/08/2025 11:02 AM [facility] Basophil % 0.2 0.0 - 1.5 % 04/08/2025 11:02 AM [facility] Immature Grans % 0.5 0.0 - 0.5 % 04/08/2025 11:02 AM [facility] Neutrophils, Absolute 8.57(H) 1.70 - 7.00 10*3/mm3 04/08/2025 11:02 AM [facility] Lymphocytes, Absolute 0.94 0.70 - 3.10 10*3/mm3 04/08/2025 11:02 AM [facility] Monocytes, Absolute 0.46 0.10 - 0.90 10*3/mm3 04/08/2025 11:02 AM [facility] Eosinophils, Absolute 0.03 0.00 - 0.40 10*3/mm3 04/08/2025 11:02 AM [facility] Basophils, Absolute 0.02 0.00 - 0.20 10*3/mm3 04/08/2025 11:02 AM [facility] Immature Grans, Absolute 0.05 0.00 - 0.05 10*3/mm3 04/08/2025 11:02 AM EDT [facility] nRBC 0.0 0.0 - 0.2 /100 WBC 04/08/2025 11:02 AM EDT [facility] Blood Venipuncture / Unknown 04/08/2025 8:41 AM EDT 04/08/2025 9:10 AM EDT Una Perla PharmD LAB BLOOD ORDERABLES Final R esult [facility]
[address] [place] [address], * (ABNORMAL) Basic Metabolic Panel (04/08/2025 8:41 AM EDT) Glucose 125(H) 65 - 99 mg/dL 04/08/2025 9:51 AM EDT [facility] BUN 13.2 6.0 - 20.0 mg/dL 04/08/2025 9:51 AM EDT [facility] Creatinine 0.69(L) 0.76 - 1.27 mg/dL 04/08/2025 9:51 AM EDT [facility] Sodium 136 136 - 145 mmol/L 04/08/2025 9:51 AM EDT [facility] Potassium 4.6 3.5 - 5.2 mmol/L 04/08/2025 9:51 AM EDT [facility] Chloride 102 98 - 107 mmol/L 04/08/2025 9:51 AM EDT [facility] CO2 23.5 22.0 - 29.0 mmol/L 04/08/2025 9:51 AM EDT [facility] Calcium 8.4(L) 8.6 - 10.5 mg/dL 04/08/2025 9:51 AM EDT [facility] BUN/Creatinine Ratio 19.1 7.0 - 25.0 04/08/2025 9:51 AM EDT [facility] Anion Gap 10.5 5.0 - 15.0 mmol/L 04/08/2025 9:51 AM EDT [facility] eGFR 117.0 >60.0 mL/min/1.7 3 04/08/2025 9:51 AM EDT [facility] Blood Venipuncture / Unknown 04/08/2025 8:41 AM EDT 04/08/2025 9:09 AM EDT Narrative [facility] - 04/08/2025 9:51 AM [...] ORDERABLES Fi nal Result Performing Organization Address City/[facility]/ZIP Co de Phone Number [facility]
[address] [place] [address], * Heparin Anti-Xa (04/08/2025 8:41 AM EDT) Heparin Anti-Xa (UFH) 0.33 0.30 - 0.70 IU/ml 04/08/2025 9:40 AM EDT [facility] Blood Venipuncture / Unknown 04/08/2025 8:41 AM EDT 04/08/2025 9:10 AM EDT us Sushil Dean Jr., MD LAB BLOOD ORDERABLES Fi nal Result Performing Organization Address City/[facility]/ZIP Co de Phone Number [facility]
[address] [place] [address], [place] [phone] * [place] C Arm During Surgery (04/07/2025 9:32 PM EDT) Narrative SYSTEMGENERATED, DOCUMENTATION - 04/07/2025 9:38 PM EDT This procedure was auto-finalized with no dictation required. us Sushil Dean Jr., MD IMG FLUOROSCOPY ORDERAB LES Final Result * Wound Culture - Swab, Leg, Right (04/07/2025 9:14 PM EDT) Wound Culture No growth at 3 days ALIZA 04/11/2025 10:40 AM EDT [facility] Gram Stain Occasional WBCs seen 04/11/2025 10:40 AM EDT [facility] Gram Stain No organisms seen 04/11/2025 10:40 AM EDT [facility] Swab Structure of right lower limb / Unknown Collection / Unknown 04/07/2025 9:14 PM EDT 04/08/2025 4:36 AM EDT us Sushil Dean Jr., MD MICROBIOLOGY - GENERAL ORDERABLES Final Result Performing Organization Address City/[facility]/ZIP Co de Phone Number [facility]
[address] [place] [address], [facility]
[address] [place] [address], * Anaerobic Culture - Swab, Leg, Right (04/07/2025 9:14 PM EDT) Anaerobic Culture No anaerobes isolated at 5 days ALIZA 04/13/2025 7:21 AM EDT [facility] Swab Structure of right lower limb / Unknown Collection / Unknown 04/07/2025 9:14 PM EDT 04/08/2025 4:36 AM EDT us Sushil Dean Jr., MD MICROBIOLOGY - GENERAL ORDERABLES Final Result [facility]
[address] [place] [address], * Anaerobic Culture - Tissue, Leg (04/07/2025 9:13 PM EDT) Anaerobic Culture No anaerobes isolated at 5 days ALIZA 04/13/2025 7:21 AM EDT [facility] Tissue Lower limb structure / Unknown Collection / Unknown 04/07/2025 9:13 PM EDT 04/08/2025 4:54 AM EDT Jason Álvarez DO MICROBIOLOGY - GENERAL ORDERABLE S Final Result [facility]
[address] [place] [address], * Tissue / Bone Culture - Tissue, Leg, Right (04/07/2025 9:13 PM EDT) [facility] Tissue Culture No growth at 3 days ALIZA 04/11/2025 10:36 AM EDT [facility] Gram Stain Rare (1+) WBCs seen 04/11/2025 10:36 AM EDT [facility] Gram Stain No organisms seen 04/11/2025 10:36 AM EDT [facility] Tissue Structure of right lower limb / Unknown 04/07/2025 9:13 PM EDT 04/08/2025 4:54 AM EDT Sushil Dean Jr., MD MICROBIOLOGY - GENERAL ORDERABLES Final Result [facility]
[address] [place] [address], [facility]
[address] [place] [address], * (ABNORMAL) Wound Culture - Swab, Leg, Right (04/07/2025 9:07 PM EDT) Wound Culture Light growth (2+) Staphylococcus aureus, MRSA(A) ALIZA 04/10/2025 10:38 AM EDT [facility] Comment: Methicillin resistant Staphylococcus aureus, Patient may be an isolation risk. Gram Stain Few (2+) WBCs seen 04/10/2025 10:38 AM EDT [facility] Gram Stain No organisms seen 10:38 AM EDT [facility] Swab Structure of [...] MICROBIOLOGY - GENERAL ORDERABLES Final Result [facility]
[address] [place] [address], [place] [phone] [facility]
[address] [place] [address], [place] [phone] * Anaerobic Culture - Swab, Leg, Right (04/07/2025 9:07 PM EDT) Anaerobic Culture No anaerobes isolated at 5 days ALIZA 04/13/2025 7:21 AM EDT [facility] Swab Structure of right lower limb / Unknown Collection / Unknown 04/07/2025 9:07 PM EDT 04/08/2025 4:36 AM EDT us Sushil Dean Jr., MD MICROBIOLOGY - GENERAL ORDERABLES Final Result [facility]
[address] [place] [address], * Heparin Anti-Xa (04/07/2025 9:10 AM EDT) [facility] Heparin Anti-Xa (UFH) 0.30 0.30 - 0.70 IU/ml 04/07/2025 10:12 AM EDT [facility] Blood Venipuncture / Unknown 04/07/2025 9:10 AM EDT 04/07/2025 9:38 AM EDT Una LundbergD LAB BLOOD ORDERABLES Final R esult [facility]
[address] [place] [address], [place] [phone] * (ABNORMAL) CBC Auto Differential (04/07/2025 9:10 AM EDT) [facility] WBC 8.63 3.40 - 10.80 10*3/mm3 04/07/2025 9:50 AM EDT [facility] RBC 5.23 4.14 - 5.80 10*6/mm3 04/07/2025 9:50 AM EDT [facility] Hemoglobin 14.7 13.0 - 17.7 g/dL 04/07/2025 9:50 AM EDT [facility] Hematocrit 44.8 37.5 - 51.0 % 04/07/2025 9:50 AM EDT [facility] MCV 85.7 79.0 - 97.0 fL 04/07/2025 9:50 AM EDT [facility] MCH 28.1 26.6 - 33.0 pg 04/07/2025 9:50 AM EDT [facility] MCHC 32.8 31.5 - 35.7 g/dL 04/07/2025 9:50 AM EDT [facility] RDW 12.8 12.3 - 15.4 % 04/07/2025 9:50 AM [facility] RDW-SD 39.9 37.0 - 54.0 fl 04/07/2025 9:50 AM [facility] MPV 10.8 6.0 - 12.0 fL 04/07/2025 9:50 AM [facility] Platelets 149 140 - 450 10*3/mm3 04/07/2025 9:50 AM [facility] Neutrophil % 66.7 42.7 - 76.0 % 04/07/2025 9:50 AM [facility] Lymphocyte % 20.5 19.6 - 45.3 % 04/07/2025 9:50 AM [facility] Monocyte % 9.8 5.0 - 12.0 % 04/07/2025 9:50 AM [facility] Eosinophil % 2.1 0.3 - 6.2 % 04/07/2025 9:50 AM [facility] Basophil % 0.3 0.0 - 1.5 % 04/07/2025 9:50 AM [facility] Immature Grans % 0.6(H) 0.0 - 0.5 % 04/07/2025 9:50 AM [facility] Neutrophils, Absolute 5.75 1.70 - 7.00 10*3/mm3 04/07/2025 9:50 AM [facility] Lymphocytes, Absolute 1.77 0.70 - 3.10 10*3/mm3 04/07/2025 9:50 AM [facility] Monocytes, Absolute 0.85 0.10 - 0.90 10*3/mm3 04/07/2025 9:50 AM [facility] Eosinophils, Absolute 0.18 0.00 - 0.40 10*3/mm3 04/07/2025 9:50 AM [facility] Basophils, Absolute 0.03 0.00 - 0.20 10*3/mm3 04/07/2025 9:50 AM [facility] Immature Grans, Absolute 0.05 0.00 - 0.05 10*3/mm3 04/07/2025 9:50 AM EDT [facility] nRBC 0.0 0.0 - 0.2 /100 WBC 04/07/2025 9:50 AM EDT [facility] Blood Venipuncture / Unknown 04/07/2025 9:10 AM EDT 04/07/2025 9:38 AM EDT Jasonalfonso Álvarez DO LAB BLOOD ORDERABLES Final Resul t [facility]
[address] [place] [address], * (ABNORMAL) Basic Metabolic Panel (04/07/2025 9:10 AM EDT) Glucose 112(H) 65 - 99 mg/dL 04/07/2025 10:19 AM EDT [facility] BUN 13.1 6.0 - 20.0 mg/dL 04/07/2025 10:19 AM EDT [facility] Creatinine 0.77 0.76 - 1.27 mg/dL 04/07/2025 10:19 AM EDT [facility] Sodium 139 136 - 145 mmol/L 04/07/2025 10:19 AM EDT [facility] Potassium 4.2 3.5 - 5.2 mmol/L 04/07/2025 10:19 AM EDT [facility] Comment:Specimen hemolyzed. Result may be falsely elevated. Chloride 105 98 - 107 mmol/L 04/07/2025 10:19 AM EDT [facility] CO2 24.8 22.0 - 29.0 mmol/L 04/07/2025 10:19 AM EDT [facility] Calcium 8.6 8.6 - 10.5 mg/dL 04/07/2025 10:19 AM EDT [facility] BUN/Creatinine Ratio 17.0 7.0 - 25.0 04/07/2025 10:19 AM EDT [facility] Anion Gap 9.2 5.0 - 15.0 mmol/L 04/07/2025 10:19 AM EDT [facility] eGFR 113.2 >60.0 mL/min/1.7 3 04/07/2025 10:19 AM EDT [facility] Blood Venipuncture / Unknown 04/07/2025 9:10 AM EDT 04/07/2025 9:38 AM EDT Narrative [facility] - 04/07/2025 10:19 [...] POWELL LAB BLOOD ORDERABLES Final Resul t [facility]
[address] [place] [address], * MRI Tibia Fibula Right With & [...] [place] 04/07/2025 9:58 AM EDT Workstation ID: [id number] Narrative 04/07/2025 9:58 AM EDT MRI TIBIA [...] [place] 04/07/2025 9:58 AM EDT Workstation ID: [id number] us Sushil Dean Jr., MD IM MRI ORDERABLES Mary Beth l Result * Heparin Anti-Xa (04/07/2025 1:42 AM EDT) [facility] Heparin Anti-Xa (UFH) 0.38 0.30 - 0.70 IU/ml 04/07/2025 2:14 AM EDT [facility] Blood Venipuncture / Unknown 04/07/2025 1:42 AM EDT 04/07/2025 1:54 AM EDT Chelsie Turpin [facility] LAB BLOOD ORDERABLES Final R esult [facility]
[address] [place] [address], * Heparin Anti-Xa (04/06/2025 7:16 PM EDT) [facility] Heparin Anti-Xa (UFH) 0.33 0.30 - 0.70 IU/ml 04/06/2025 7:50 PM EDT [facility] Blood Venipuncture / Unknown 04/06/2025 7:16 PM EDT 04/06/2025 7:35 PM EDT Cherri Rogerio RPH LAB BLOOD ORDERABLES Final Res ult Performing Organization Address City/[facility]/ZIP Co de Phone Number [facility]
[address] [place] [address], * Potassium (04/06/2025 7:16 PM EDT) Potassium 4.0 3.5 - 5.2 mmol/L 04/06/2025 7:53 PM EDT [facility] Blood Venipuncture / Unknown 04/06/2025 7:16 PM EDT 04/06/2025 7:35 PM EDT Jason Álvarez DO LAB BLOOD ORDERABLES Final Resul t Performing Organization Address [facility] de Phone Number [facility]
[address] [place] [address], * (ABNORMAL) Heparin Anti-Xa (04/06/2025 12:36 PM EDT) Heparin Anti-Xa (UFH) 0.24(L) 0.30 - 0.70 IU/ml 04/06/2025 1:23 PM EDT [facility] Blood Venipuncture / Unknown 04/06/2025 12:36 PM EDT 04/06/2025 1:07 PM EDT Una LundbergD LAB BLOOD ORDERABLES Final R esult Performing Organization Address City/[facility] Co de Phone Number [facility]
[address] [place] [address], * (ABNORMAL) Heparin Anti-Xa (04/06/2025 3:42 AM EDT) Pathologist [facility] Heparin Anti-Xa (UFH) 0.25(L) 0.30 - 0.70 IU/ml 04/06/2025 5:30 AM EDT [facility] Blood Venipuncture / Unknown 04/06/2025 3:42 AM EDT 04/06/2025 4:59 AM EDT Cehlsie Turpin [facility] LAB BLOOD ORDERABLES Final R esult [facility]
[address] [place] [address], * (ABNORMAL) Basic Metabolic Panel (04/06/2025 3:42 AM EDT) Pathologist [facility] Glucose 94 65 - 99 mg/dL 04/06/2025 5:59 AM EDT [facility] BUN 12.8 6.0 - 20.0 mg/dL 04/06/2025 5:59 AM EDT [facility] Creatinine 0.80 0.76 - 1.27 mg/dL 04/06/2025 5:59 AM EDT [facility] Sodium 138 136 - 145 mmol/L 04/06/2025 5:59 AM EDT [facility] Potassium 3.6 3.5 - 5.2 mmol/L 04/06/2025 5:59 AM EDT [facility] Chloride 103 98 - 107 mmol/L 04/06/2025 5:59 AM EDT [facility] CO2 24.2 22.0 - 29.0 mmol/L 04/06/2025 5:59 AM EDT [facility] Calcium 8.0(L) 8.6 - 10.5 mg/dL 04/06/2025 5:59 AM EDT [facility] BUN/Creatinine Ratio 16.0 7.0 - 25.0 04/06/2025 5:59 AM EDT [facility] Anion Gap 10.8 5.0 - 15.0 mmol/L 04/06/2025 5:59 AM EDT [facility] eGFR 111.9 >60.0 mL/min/1.7 3 04/06/2025 5:59 AM EDT [facility] Blood Venipuncture / Unknown 04/06/2025 3:42 AM EDT 04/06/2025 5:20 AM EDT [facility] - 04/06/2025 5:59 AM EDT GFR [...] DO LAB BLOOD ORDERABLES Final Resul t [facility]
[address] [place] [address], * (ABNORMAL) CBC Auto Differential (04/06/2025 3:41 AM EDT) WBC 10.86(H) 3.40 - 10.80 10*3/mm3 04/06/2025 5:04 AM EDT [facility] RBC 5.08 4.14 - 5.80 10*6/mm3 04/06/2025 5:04 AM EDT [facility] Hemoglobin 13.9 13.0 - 17.7 g/dL 04/06/2025 5:04 AM EDT [facility] Hematocrit 43.7 37.5 - 51.0 % 04/06/2025 5:04 AM EDT [facility] MCV 86.0 79.0 - 97.0 fL 04/06/2025 5:04 AM [facility] MCH 27.4 26.6 - 33.0 pg 04/06/2025 5:04 AM [facility] MCHC 31.8 31.5 - 35.7 g/dL 04/06/2025 5:04 AM [facility] RDW 12.8 12.3 - 15.4 % 04/06/2025 5:04 AM [facility] RDW-SD 40.0 37.0 - 54.0 fl 04/06/2025 5:04 AM [facility] MPV 11.7 6.0 - 12.0 fL 04/06/2025 5:04 AM [facility] Platelets 115(L) 140 - 450 10*3/mm3 04/06/2025 5:04 AM [facility] Neutrophil % 65.3 42.7 - 76.0 % 04/06/2025 5:04 AM [facility] Lymphocyte % 20.5 19.6 - 45.3 % 04/06/2025 5:04 AM [facility] Monocyte % 11.8 5.0 - 12.0 % 04/06/2025 5:04 AM [facility] Eosinophil % 1.8 0.3 - 6.2 % 04/06/2025 5:04 AM [facility] Basophil % 0.3 0.0 - 1.5 % 04/06/2025 5:04 AM [facility] Immature Grans % 0.3 0.0 - 0.5 % 04/06/2025 5:04 AM [facility] Neutrophils, Absolute 7.09(H) 1.70 - 7.00 10*3/mm3 04/06/2025 5:04 AM [facility] Lymphocytes, Absolute 2.23 0.70 - 3.10 10*3/mm3 04/06/2025 5:04 AM [facility] Monocytes, Absolute 1.28(H) 0.10 - 0.90 10*3/mm3 04/06/2025 5:04 AM EDT [facility] Eosinophils, Absolute 0.20 0.00 - 0.40 10*3/mm3 04/06/2025 5:04 AM EDT [facility] Basophils, Absolute 0.03 0.00 - 0.20 10*3/mm3 04/06/2025 5:04 AM EDT [facility] Immature Grans, Absolute 0.03 0.00 - 0.05 10*3/mm3 04/06/2025 5:04 AM EDT [facility] nRBC 0.0 0.0 - 0.2 /100 WBC 04/06/2025 5:04 AM EDT [facility] Blood Venipuncture / Unknown 04/06/2025 3:41 AM EDT 04/06/2025 4:58 AM EDT Jason Álvarez DO LAB BLOOD ORDERABLES Final Resul t Performing Organization Address City/[facility] Co de Phone Number [facility]
[address] [place] [address], [place] [phone] * Heparin Anti-Xa (04/05/2025 8:43 PM EDT) Pathologist [facility] Heparin Anti-Xa (UFH) 0.38 0.30 - 0.70 IU/ml 04/05/2025 9:09 PM EDT [facility] Blood Venipuncture / Unknown 04/05/2025 8:43 PM EDT 04/05/2025 8:55 PM EDT us Cherri Beatty [facility] LAB BLOOD ORDERABLES Final Res ult Performing Organization Address City/[facility]/ZIP Co de Phone Number [facility]
[address] [place] [address], [place] [phone] * CK (04/05/2025 12:15 PM EDT) Creatine Kinase 140 20 - 200 U/L 04/05/2025 1:31 PM EDT [facility] Blood Venipuncture / Unknown 04/05/2025 12:15 PM EDT 04/05/2025 1:03 PM EDT Carlton Mead MD LAB BLOOD ORDERABLES Final R esult Performing Organization Address City/[facility]/ZIP Co de Phone Number [facility]
[address] [place] [address], * (ABNORMAL) Heparin Anti-Xa (04/05/2025 12:15 PM EDT) Heparin Anti-Xa (UFH) 0.17(L) 0.30 - 0.70 IU/ml 04/05/2025 1:21 PM EDT [facility] Blood Venipuncture / Unknown 04/05/2025 12:15 PM EDT 04/05/2025 1:04 PM EDT Una Perla PharmD LAB BLOOD ORDERABLES Final R esult Performing Organization Address City/[facility] Co de Phone Number [facility]
[address] [place] [address], * (ABNORMAL) aPTT (04/05/2025 3:54 AM EDT) PTT 35.3(L) 60.0 - 90.0 seconds 04/05/2025 4:31 AM EDT [facility] Blood Venipuncture / Unknown 04/05/2025 3:54 AM EDT 04/05/2025 4:15 AM EDT Narrative [facility] - 04/05/2025 4:31 AM EDT PTT = The equivalent PTT values for the therapeutic range of heparin levels at 0.3 to 0.5 U/ml are 60 to 70 seconds. [employer] LAB BLOOD ORDERABLES Final R esult [facility]
[address] [place] [address], * Heparin Anti-Xa (04/05/2025 3:54 AM EDT) Pathologist [facility] Heparin Anti-Xa (UFH) 0.30 0.30 - 0.70 IU/ml 04/05/2025 4:32 AM EDT [facility] Blood Venipuncture / Unknown 04/05/2025 3:54 AM EDT 04/05/2025 4:15 AM EDT [employer] LAB BLOOD ORDERABLES Final R esult Performing Organization Address City/[facility]/ZIP Co de Phone Number [facility]
[address] [place] [address], * (ABNORMAL) CBC Auto Differential (04/05/2025 3:54 AM EDT) [facility] WBC 11.18(H) 3.40 - 10.80 10*3/mm3 04/05/2025 4:20 AM EDT [facility] RBC 5.00 4.14 - 5.80 10*6/mm3 04/05/2025 4:20 AM EDT [facility] Hemoglobin 13.9 13.0 - 17.7 g/dL 04/05/2025 4:20 AM EDT [facility] Hematocrit 42.4 37.5 - 51.0 % 04/05/2025 4:20 AM EDT [facility] MCV 84.8 79.0 - 97.0 fL 04/05/2025 4:20 AM EDT [facility] MCH 27.8 26.6 - 33.0 pg 04/05/2025 4:20 AM EDT [facility] MCHC 32.8 31.5 - 35.7 g/dL 04/05/2025 4:20 AM [facility] RDW 12.9 12.3 - 15.4 % 04/05/2025 4:20 AM [facility] RDW-SD 39.7 37.0 - 54.0 fl 04/05/2025 4:20 AM [facility] MPV 10.2 6.0 - 12.0 fL 04/05/2025 4:20 AM [facility] Platelets 160 140 - 450 10*3/mm3 04/05/2025 4:20 AM [facility] Neutrophil % 73.5 42.7 - 76.0 % 04/05/2025 4:20 AM [facility] Lymphocyte % 14.0(L) 19.6 - 45.3 % 04/05/2025 4:20 AM [facility] Monocyte % 11.0 5.0 - 12.0 % 04/05/2025 4:20 AM [facility] Eosinophil % 0.8 0.3 - 6.2 % 04/05/2025 4:20 AM [facility] Basophil % 0.3 0.0 - 1.5 % 04/05/2025 4:20 AM [facility] Immature Grans % 0.4 0.0 - 0.5 % 04/05/2025 4:20 AM [facility] Neutrophils, Absolute 8.23(H) 1.70 - 7.00 10*3/mm3 04/05/2025 4:20 AM [facility] Lymphocytes, Absolute 1.56 0.70 - 3.10 10*3/mm3 04/05/2025 4:20 AM [facility] Monocytes, Absolute 1.23(H) 0.10 - 0.90 10*3/mm3 04/05/2025 4:20 AM [facility] Eosinophils, Absolute 0.09 0.00 - 0.40 10*3/mm3 04/05/2025 4:20 AM [facility] Basophils, Absolute 0.03 0.00 - 0.20 10*3/mm3 04/05/2025 4:20 AM EDT [facility] Immature Grans, Absolute 0.04 0.00 - 0.05 10*3/mm3 04/05/2025 4:20 AM EDT [facility] nRBC 0.0 0.0 - 0.2 /100 WBC 04/05/2025 4:20 AM EDT [facility] Blood Venipuncture / Unknown 04/05/2025 3:54 AM EDT 04/05/2025 4:16 AM EDT Una Perla PharmD LAB BLOOD ORDERABLES Final R esult [facility]
[address] [place] [address], * (ABNORMAL) Basic Metabolic Panel (04/05/2025 3:54 AM EDT) Glucose 152(H) 65 - 99 mg/dL 04/05/2025 4:40 AM EDT [facility] BUN 17.3 6.0 - 20.0 mg/dL 04/05/2025 4:40 AM EDT [facility] Creatinine 0.92 0.76 - 1.27 mg/dL 04/05/2025 4:40 AM EDT [facility] Sodium 136 136 - 145 mmol/L 04/05/2025 4:40 AM EDT [facility] Potassium 3.9 3.5 - 5.2 mmol/L 04/05/2025 4:40 AM EDT [facility] Chloride 103 98 - 107 mmol/L 04/05/2025 4:40 AM EDT [facility] CO2 24.0 22.0 - 29.0 mmol/L 04/05/2025 4:40 AM EDT [facility] Calcium 7.8(L) 8.6 - 10.5 mg/dL 04/05/2025 4:40 AM EDT [facility] BUN/Creatinine Ratio 18.8 7.0 - 25.0 04/05/2025 4:40 AM EDT [facility] Anion Gap 9.0 5.0 - 15.0 mmol/L 04/05/2025 4:40 AM EDT [facility] eGFR 105.2 >60.0 mL/min/1.7 3 04/05/2025 4:40 AM EDT [facility] Blood Venipuncture / Unknown 04/05/2025 3:54 AM EDT 04/05/2025 4:15 AM EDT [facility] - 04/05/2025 4:40 AM EDT GFR [...] MD LAB BLOOD ORDERABLES Final Re sult [facility]
[address] [place] [address], * (ABNORMAL) aPTT (04/05/2025 12:18 AM EDT) PTT 33.6(L) 60.0 - 90.0 seconds 04/05/2025 12:53 AM EDT [facility] Blood Venipuncture / Unknown 04/05/2025 12:18 AM EDT 04/05/2025 12:37 AM EDT [facility] - 04/05/2025 12:53 AM EDT PTT = The equivalent PTT values for the therapeutic range of heparin levels at 0.3 to 0.5 U/ml are 60 to 70 seconds. [employer] PharmD LAB BLOOD ORDERABLES Final R esult Performing Organization Address City/[facility]/ZIP Co de Phone Number [facility]
[address] [place] [address], * (ABNORMAL) Protime-INR (04/05/2025 12:18 AM EDT) Protime 15.9(H) 12.2 - 15.3 Seconds 04/05/2025 12:53 AM EDT [facility] INR 1.19(H) 0.89 - 1.12 04/05/2025 12:53 AM EDT [facility] Blood Venipuncture / Unknown 04/05/2025 12:18 AM EDT 04/05/2025 12:37 AM EDT [employer] PharmD LAB BLOOD ORDERABLES Final R esult Performing Organization Address [facility] Co de Phone Number [facility]
[address] [place] [address], * Heparin Anti-Xa (04/05/2025 12:18 AM EDT) Heparin Anti-Xa (UFH) 0.39 0.30 - 0.70 IU/ml 04/05/2025 12:54 AM EDT [facility] Blood Venipuncture / Unknown 04/05/2025 12:18 AM EDT 04/05/2025 12:37 AM EDT [employer] PharmD LAB BLOOD ORDERABLES Final R esult Performing Organization Address City/[facility] Co de Phone Number [facility]
[address] [place] [address], * MRI Tibia Fibula Right With & Without Contrast (04/04/2025 5:54 PM EDT) Anatomical Region Laterality Modality Lower Extremities, [facility] 04/04/2025 10:5 7 PM [...] MD 04/04/2025 11:00 PM EDT Workstation ID: [id number] Narrative 04/04/2025 11:00 PM EDT MRI TIBIA [...] MD 04/04/2025 11:00 PM EDT Workstation ID: [id number] Leonora Shepherd MD IMG MRI ORDERABLES Final Resu lt * POC Creatinine (04/04/2025 2:49 PM EDT) Creatinine 1.10 0.60 - 1.30 mg/dL 04/07/2025 7:14 PM EDT [facility] Comment:Serial Number: [id number]: [id number] Venous Blood 04/04/2025 2:49 PM EDT 04/07/2025 7:14 PM EDT Jason Álvarez DO POINT OF CARE TEST ORDERABLES Fi nal Result [facility]
[address] [place] [address], * (ABNORMAL) CBC Auto Differential (04/04/2025 2:47 PM EDT) [facility] WBC 12.72(H) 3.40 - 10.80 10*3/mm3 04/04/2025 2:56 PM EDT [facility] RBC 5.64 4.14 - 5.80 10*6/mm3 04/04/2025 2:56 PM EDT [facility] Hemoglobin 15.3 13.0 - 17.7 g/dL 04/04/2025 2:56 PM EDT [facility] Hematocrit 47.9 37.5 - 51.0 % 04/04/2025 2:56 PM EDT [facility] MCV 84.9 79.0 - 97.0 fL 04/04/2025 2:56 PM EDT [facility] MCH 27.1 26.6 - 33.0 pg 04/04/2025 2:56 PM EDT [facility] MCHC 31.9 31.5 - 35.7 g/dL 04/04/2025 2:56 PM EDT [facility] RDW 13.1 12.3 - 15.4 % 04/04/2025 2:56 PM EDT [facility] RDW-SD 40.3 37.0 - 54.0 fl 04/04/2025 2:56 PM EDT [facility] MPV 9.4 6.0 - 12.0 fL 04/04/2025 2:56 PM EDT [facility] Platelets 232 140 - 450 10*3/mm3 04/04/2025 2:56 PM EDT [facility] Neutrophil % 74.9 42.7 - 76.0 % 04/04/2025 2:56 PM EDT [facility] Lymphocyte % 13.1(L) 19.6 - 45.3 % 04/04/2025 2:56 PM EDT [facility] Monocyte % 11.2 5.0 - 12.0 % 04/04/2025 2:56 PM EDT [facility] Eosinophil % 0.4 0.3 - 6.2 % 04/04/2025 2:56 PM EDT [facility] Basophil % 0.2 0.0 - 1.5 % 04/04/2025 2:56 PM EDT [facility] Immature Grans % 0.2 0.0 - 0.5 % 04/04/2025 2:56 PM EDT [facility] Neutrophils, Absolute 9.52(H) 1.70 - 7.00 10*3/mm3 04/04/2025 2:56 PM EDT [facility] Lymphocytes, Absolute 1.66 0.70 - 3.10 10*3/mm3 04/04/2025 2:56 PM EDT [facility] Monocytes, Absolute 1.43(H) 0.10 - 0.90 10*3/mm3 04/04/2025 2:56 PM EDT [facility] Eosinophils, Absolute 0.05 0.00 - 0.40 10*3/mm3 04/04/2025 2:56 PM EDT [facility] Basophils, Absolute 0.03 0.00 - 0.20 10*3/mm3 04/04/2025 2:56 PM EDT [facility] Immature Grans, Absolute 0.03 0.00 - 0.05 10*3/mm3 04/04/2025 2:56 PM EDT [facility] nRBC 0.0 0.0 - 0.2 /100 WBC 04/04/2025 2:56 PM EDT [facility] Blood Venipuncture / Unknown 04/04/2025 2:47 PM EDT 04/04/2025 2:52 PM EDT us Mario Crowley DO LAB BLOOD ORDERABLES Fin al Result [facility]
[address] [place] [address], * (ABNORMAL) C-reactive Protein (04/04/2025 2:47 PM EDT) [facility] Signature C-Reactive Protein 8.57(H) 0.00 - 0.50 mg/dL 04/04/2025 3:26 PM EDT [facility] Blood Venipuncture / Unknown 04/04/2025 2:47 PM EDT 04/04/2025 2:52 PM EDT [facility] Fin al Result Performing Organization Address City/[facility]/ZIP Co de Phone Number [facility]
[address] [place] [address], * (ABNORMAL) Sedimentation Rate (04/04/2025 2:47 PM EDT) [facility] Sed Rate 51(H) 0 - 15 mm/hr 04/04/2025 3:06 PM EDT [facility] Blood Venipuncture / Unknown 04/04/2025 2:47 PM EDT 04/04/2025 2:52 PM EDT [facility]OD ORDERABLES Fin al Result Performing Organization Address City/[facility] Co de Phone Number [facility]
[address] [place] [address], * Comprehensive Metabolic Panel (04/04/2025 2:47 PM EDT) [facility] Glucose 90 65 - 99 mg/dL 04/04/2025 3:26 PM EDT [facility] BUN 18.3 6.0 - 20.0 mg/dL 04/04/2025 3:26 PM EDT [facility] Creatinine 0.94 0.76 - 1.27 mg/dL 04/04/2025 3:26 PM EDT [facility] Sodium 136 136 - 145 mmol/L 04/04/2025 3:26 PM EDT [facility] Potassium 3.8 3.5 - 5.2 mmol/L 04/04/2025 3:26 PM EDT [facility] Chloride 100 98 - 107 mmol/L 04/04/2025 3:26 PM EDT [facility] CO2 25.3 22.0 - 29.0 mmol/L 04/04/2025 3:26 PM EDT [facility] Calcium 8.6 8.6 - 10.5 mg/dL 04/04/2025 3:26 PM T [facility] Total Protein 7.3 6.0 - 8.5 g/dL 04/04/2025 3:26 PM EDT [facility] Albumin 4.1 3.5 - 5.2 g/dL 04/04/2025 3:26 PM T [facility] ALT (SGPT) 26 1 - 41 U/L 04/04/2025 3:26 PM [facility] AST (SGOT) 25 1 - 40 U/L 04/04/2025 3:26 PM [facility] Alkaline Phosphatase 106 39 - 117 U/L 04/04/2025 3:26 PM T [facility] Total Bilirubin 1.0 0.0 - 1.2 mg/dL 04/04/2025 3:26 PM T [facility] Globulin 3.2 gm/dL 04/04/2025 3:26 PM [facility] Comment:Calculated Result A/G Ratio 1.3 g/dL 04/04/2025 3:26 PM [facility] BUN/Creatinine Ratio 19.5 7.0 - 25.0 04/04/2025 3:26 PM [facility] Anion Gap 10.7 5.0 - 15.0 mmol/L 04/04/2025 3:26 PM [facility] eGFR 102.5 >60.0 mL/min/1.7 3 04/04/2025 3:26 PM [facility] Blood Venipuncture / Unknown 04/04/2025 2:47 PM EDT 04/04/2025 2:52 PM EDT Narrative [facility] - 04/04/2025 3:26 [...] DO LAB BLOOD ORDERABLES Fin al Result [facility]
[address] [place] [address], documented in this encounter Visit Diagnoses Diagnosis [...] BPA Driven Protocol Open Order & [facility] Electrolyte Replacement Protocol Algorithm to [...] BPA Driven Protocol Open Order & [facility] Electrolyte Replacement Protocol Algorithm to [...] Salazar, KELL)[id number] (Given - Provider: Anahy Marcelino, WINE CELLAR WORKER)[id number] (Canceled Entry - Provider: Anahy Marcelino WINE CELLAR WORKER - Comment: previously given) 0837 (Given - [...] Continuous Medication Order 04/09/2025 04/10/2025 04/11/2025 heparin 18586 units/250 mL (100 units/mL) in 0.45 % [...] LU)[id number] (Not Given: See Alt - Provider: Shirlye Hart, RN) acetaminophen (TYLENOL) tablet 500 mg(Linked [...] BPA Driven Protocol Open Order & [facility] Electrolyte Replacement Protocol Algorithm to [...] documented as of this encounter Care Teams Mineral Technologist Relationship Specialty Start Date End Date Provider, [place] [address] PCP - General 05/09/23 documented as of this encounter
--- OUTSIDE RECORDS SUMMARY | 2025-04-07 19:36 | XMS_ITS | Encounter Summary ---
Author Organization [facility] Address [address] [place] [address] Care Team Providers Care Coupon Manifest Clerk Name Role Phone Provider, No Known Primary Care Provider Unavail able Reason for Visit * Auth/Cert Specialty Diagnoses / Procedures Referred By Bulmaro muniz Referred To Contact Diagnoses Right BKA infection Referral ID Status Reason Start Date Expiration Date Visits Re quested Visits Authorized [id number] 1 1 Encounter Details Date Type Department Care Team (Late st Contact Info) Description 04/07/2025 8:36 PM EDT Anesthesia Event [facility] OR [address] [place] [address] Luci Alonso DO [address] [place] [address] Anesthesia Record Procedure Summary Procedure Name Responsible [...] drink = 0.6 oz pur e alcohol) [facility] Utilities Answer Date Recorded In the past 12 months has [employer], gas, oil, or water [employer] threatened to shut off services in your [...] or training? Not on file Preferred Language Canadian 04/07/2025 Sex and Gender Information Value Date [...] PACU on O2NC, breathing comfortably. Report to BARREL CENTERER at bedside. VSS. * Anesthesia Procedure Notes [...] Musculoskeletal Abdominal Substance History - negative use CURB SETTER Other ROS/Med Hx Other: Eliquis 04/04/25 Hgb 14.7 k 43.2 Factor 2 on eliquis +gerd Anesthesia Plan ASA 3 - emergent general Rapid sequence (Risks and benefits of general anesthesia discussed with patient (including [place], CVA, , recall,aspiration, oropharyngeal/dental damage), questions answered, agreeable to proceed. ) intravenous induction Anesthetic plan, risks, benefits, and alternatives have been provided, discussed and informed consent has been obtained with: patient. Plan discussed with HANGAR ATTENDANT. CODE STATUS: Code Status (Patient has no [...] documented as of this encounter Care Teams Coupon Manifest Clerk Relationship Specialty Start Date End Date Provider, No Known [facility] [place] [address] PCP - General 05/09/23 documented as of this encounter
--- OUTSIDE RECORDS SUMMARY | 2025-04-08 13:45 | XMS_ITS | Encounter Summary ---
[facility] Address [address] [place] [address] Care Team Providers Care Weaving Instructor Name Role Phone Provider, No Known Primary Care Provider Unavail able Reason for Visit * Reason Comments Leg Swelling * Auth/Cert Specialty Diagnoses / Procedures Referred By Contac t Referred To Contact Diagnoses Right BKA infection Referral ID Status Reason Start Date Expiration Date Visits Re quested Visits Authorized [id number] 1 1 Encounter Details Date Type Department Care Team (Late st Contact Info) Description 04/08/2025 2:45 PM EDT - 04/08/2025 4:04 PM EDT Surgery [facility] OR [address] [place] [address] Sushil Dean Jr., MD [address] [place] [address] [address] [id number] LEG DEBRIDEMENT AND IRRIGATION Social History Tobacco Use Types Packs/Day Years Used Date Smoking Tobacco: Never Smokeless Tobacco: Never Tobacco Cessation:Counseling Given: Not Answered Alcohol Use Standard Drinks/Week Comments Not Currently 0 (1 standard drink = 0.6 oz pur e alcohol) [facility] Utilities Answer Date Recorded In the past 12 months has [employer] electric, gas, oil, or water company threatened [...] Sign Reading Time Taken Comments Blood Pressure 113/78 04/08/2025 2:01 PM EDT Pulse 66 04/08/2025 2:01 PM EDT Temperature 36.2 C (97.2 F) 04/08/2025 2:01 PM EDT Respiratory Rate 18 04/08/2025 2:01 PM EDT Oxygen Saturation 94% 04/08/2025 2:01 PM EDT Inhaled Oxygen Concentration - - Weight 134 kg (295 lb) 04/04/2025 2:25 PM EDT Height 180.3 cm (5' 11 ) 04/04/2025 2:25 PM EDT Body Mass Index 41.14 04/04/2025 2:25 PM EDT documented in this encounter Functional Status * Calculated C-SSRS Risk Score (Lifetime/Recent) Answer Date of Assessment Author No Risk Indicated 04/04/2025 2:25 PM EDT Cherri Grimm RN * [place] Suicide Severity Rating Scale (Screener/Recent Self-Report) Question [...] from the original note were not included. [facility] Medicine Services DISCHARGE SUMMARY Patient [...] Date/Time Wound Culture - Swab, Leg, Right [[id number]] (Abnormal) (Susceptibility) Collected: 04/07/252106 Lab Status: Final [...] Units Date/Time FL C Arm During Surgery [[id number]] Resulted: 04/07/252137 Updated: 04/07/252137 Narrative: This procedure was auto-finalized with no dictation required. MRI Tibia Fibula Right With & Without Contrast [[id number]] Collected: 04/07/25 0938 Updated: 04/07/25 1001 Narrative: [...] Buenrostro 04/07/2025 9:58 AM EDT Workstation ID: [id number] MRI Tibia Fibula Right With & Without Contrast [[id number]] Collected: 04/04/252256 Updated: 04/04/252302 Narrative: MRI TIBIA [...] represent a small area of phlegmonous change ([id number] image 10) measuring approximately 1.6 cm which [...] MD 04/04/2025 11:00 PM EDT Workstation ID: [id number] Pending Labs Order Current Status Fungus Culture [...] Male) Date of 1980 Social Security Number [id number] [place] [address] [place] [address] Latter Day Unknown Marital Status Unknown Admission Date 04/04/2025 Admission Type Emergency Admitting Provider Jadyn Richardson DO Attending Provider Jadyn Richardson DO Department, Room/Bed [facility] 5G, S565/1 Discharge Date Discharge Disposition [...] Group [place] [id number] Payor Plan Address Payor Plan Phone Number Payor Plan Fax Number Effective Dates [employer] [address] [address] 08/10/2023 - None Entered [facility] [address] Subscriber Name Subscriber Date Member ID WON DENNIS 1980 [id number] Emergency Contacts Registered Radiation Therapist (Rel.) Home Phone Work Phone Mobile Phone Avril Dennis (Spouse) -- -- [phone] Robert Hackett (Relative) -- -- [phone] [facility] 5G [address] [facility] [address] Patient: ROOM: [facility] Won Dennis [address] [facility] [place] [address] : 1980 SSN: [id number] Sex: M PCP: Provider, No Known Emergency Contact Information Name Relation Home Work Mobile Avril Dennis Spouse [phone] Other Contacts Name Relation Home Work Mobile Robert Hackett Relative [phone] INSURANCE PAYOR [employer]AN [employer] # SUBSCRIBER ID Primary: Secondary: MEDICARE [employer] [id number] Admitting Diagnosis: 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] Order Date: Apr 09, 2025 Case Management Cryogenics Engineer Consult (Order ID: [id number]) Diagnosis: Priority: Routine Expected Date: Expiration Date: [...] INFECTIOUS DISEASE Progress Note Won Dennis 1980 [id number] Date of Consult: 04/10/2025 Admission Date: 04/04/2025 [...] which prompted him to seek treatment at [facility]. He is known to Dr. [...] Jr., MD, 20 mg at 04/09/25906 heparin 52140 units/250 mL (100 units/mL) in 0.45 % [...] Units Date/Time FL C Arm During Surgery [[id number]] Resulted: 04/07/252137 Updated: 04/07/252137 Narrative: This procedure was auto-finalized with no dictation required. MRI Tibia Fibula Right With & Without Contrast [[id number]] Collected: 04/07/2538 Updated: 04/07/25 1001 Narrative: MRI [...] Buenrostro 04/07/2025 9:58 AM EDT Workstation ID: [id number] Impression: Recurrent Right BKA stump abscess/cellulitis- this [...] 04/10/251323 Creation Time: 04/10/251323 Signed [facility]and [facility] Medicine Services PROGRESS NOTE Patient [...] Date/Time Wound Culture - Swab, Leg, Right [[id number]] (Abnormal) (Susceptibility) Collected: 04/07/252106 Lab Status: Final [...] Row Name 04/06/25 1143 Sit-Stand Transfer Sit-Stand Hettinger (Transfers) modified independence - Comment, (Sit-Stand Transfer) Pt stood from recliner. Not holding onto walker, pt able to pull his pants up while balancing on his one leg. -LM Row Name 04/06/25 1143 Gait/Stairs (Locomotion) Hettinger Level (Gait) modified independence - Distance in [...] Motion bilateral lower extremity ROM WFL -LM [facility] Name 04/06/25 1145 Strength Comprehensive (MMT) General Manual Muscle Testing (MMT) Assessment no strength deficits identified BLEs -LM [facility] Name 04/06/25 1145 Balance Balance [...] Physical Therapist Goals/Plan No documentation. Clinical Impression [facility] 04/06/25 1146 Pain Pretreatment Pain Rating 0/10 - no pain -LM Posttreatment Pain Rating 0/10 - no pain -LM [facility] 04/06/25 1146 Plan of Care Review Plan of Care Reviewed With patient -LM Outcome Evaluation PT evaluation completed. Pt demonstrated independence with all mobility including ambulating 100 feet using rw - no unsteadiness noted. Pt reports he feels at baseline and doesn't think he needs skilled PT while here. Recommend home at d/c. PT signing off. -LM [facility] Name 04/06/25 1146 Therapy Assessment/Plan (PT) Criteria for Skilled Interventions Met (PT) no;no problems identified which require skilled intervention -LM Therapy Frequency (PT) evaluation only -LM Predicted Duration of Therapy Intervention (PT) Eval Only -LM [facility] Name 04/06/25 1146 Vital Signs Pretreatment Heart Rate (beats/min) 86 -LM Posttreatment Heart Rate (beats/min) 96 -LM Pre SpO2 (%) 95 -LM O2 Delivery Pre Treatment room air -LM Post SpO2 (%) 96 -LM O2 Delivery Post Treatment room air -LM Pre Patient Position Sitting -LM Post Patient Position Sitting -LM [facility] Name 04/06/25 1146 Positioning and [...] Nurse Physical Therapy Education Title: PT OT SHUTTLER CAR Therapies (Done) Topic: Physical Therapy (Done) Point: Mobility training (Done) Learning Progress Summary Patient Acceptance, E, VU,DU by at 04/06/2025 1147 Point: Precautions (Done) Learning Progress Summary Patient Acceptance, E, VU,DU by at 04/06/2025 1147 User Cabrera Initials Effective Dates Name Provider Type [facility] 01/24/25 - Susan Cavazos, PT Physical [...] Description Service Date Service Provider Modifiers Qty [id number] PT EVAL LOW COMPLEXITY 3 04/06/2025 Susan [...] mg Daily 04/05/2025 -- Route: Oral heparin 54828 units/250 mL (100 units/mL) in 0.45 % [...] 22 [facility] [address], [address] [facility], [address] Please schedule at [phone] VONDA Garcia 04/11/25 08:32 EDT Cosigned by Sushil Dean Jr., MD at 04/19/2025 10:33 AM EDT Associated attestation - Sushil Dean Jr., MD - 04/19/2025 10:33 AM EDT I have reviewed this documentation and agree. * Rosario Hill APRN - 04/10/2025 1:24 PM EDT Images from the original note were not included. [facility] Medicine Services PROGRESS NOTE Patient [...] Date/Time Wound Culture - Swab, Leg, Right [[id number]] (Abnormal) (Susceptibility) Collected: 04/07/252106 Lab Status: Final [...] mg Daily 04/05/2025 -- Route: Oral heparin 23182 units/250 mL (100 units/mL) in 0.45 % [...] 22 [facility] [address] [facility], [address] [facility], [address] Please schedule at [phone] VONDA Garcia 04/10/25 09:01 EDT Cosigned by Sushil Dean Jr., MD at 04/19/2025 10:33 AM EDT Associated attestation - Sushil Dean Jr., MD - 04/19/2025 10:33 AM EDT I have reviewed this documentation and agree. * Carlton Mead MD - 04/10/2025 7:38 AM EDT Images from the original note were not included. INFECTIOUS DISEASE Progress Note Won Dennis 1980 [id number] Date of Consult: 04/10/2025 Admission Date: 04/04/2025 [...] which prompted him to seek treatment at [facility]. He is known to Dr. [...] IRRIGATION; Surgeon: Sushil Dean Jr., MD; Location: [facility] OR; Service: Orthopedics; Laterality: Right; PLACEMENT OF WOUND VAC Right 04/07/2025 Procedure: WOUND VACUUM ASSISTED CLOSURE; Surgeon: Sushil Dean Jr., MD; Location: [facility] OR; Service: Orthopedics; Laterality: Right; WOUND CLOSURE [...] Jr., MD, 20 mg at 04/09/25906 heparin 61932 units/250 mL (100 units/mL) in 0.45 % [...] Units Date/Time FL C Arm During Surgery [[id number]] Resulted: 04/07/252137 Updated: 04/07/252137 Narrative: This procedure was auto-finalized with no dictation required. MRI Tibia Fibula Right With & Without Contrast [[id number]] Collected: 04/07/25937 Updated: 04/07/25 100 Narrative: MRI [...] Buenrostro 04/07/2025 9:58 AM EDT Workstation ID: [id number] Impression: Recurrent Right BKA stump abscess/cellulitis- this [...] MD 04/10/2025 07:38 EDT * Larisa Hamilton [facility] - 04/10/2025 7:17 AM EDT Pharmacy [...] from the original note were not included. [facility] Medicine Services PROGRESS NOTE Patient [...] Date/Time Wound Culture - Swab, Leg, Right [[id number]] (Abnormal) Collected: 04/07/252106 Lab Status: Preliminary result [...] DO 04/09/25 * Larisa Hamilton [facility] - 04/09/2025 11:36 AM EDT Pharmacy [...] mg Daily 04/05/2025 -- Route: Oral heparin 13379 units/250 mL (100 units/mL) in 0.45 % [...] radiographs [facility] [address] [facility], [address] [facility], [address] Please schedule at [phone] VONDA Garcia 04/09/25 09:18 EDT Cosigned by Sushil Dean Jr., MD at 04/19/2025 10:33 AM EDT Associated attestation - Sushil Dean Jr., MD - 04/19/2025 10:33 AM EDT I have reviewed this documentation and agree. * Carlton Mead MD - 04/09/2025 8:25 AM EDT Images from the original note were not included. INFECTIOUS DISEASE Progress Note Won Dennis 1980 [id number] Date of Consult: 04/09/2025 Admission Date: 04/04/2025 [...] which prompted him to seek treatment at [facility]. He is known to Dr. [...] Sushil Dean Jr., MD; Location: [facility]; Service: Orthopedics; Laterality: Right; PLACEMENT OF WOUND VAC Right 04/07/2025 Procedure: WOUND VACUUM ASSISTED CLOSURE; Surgeon: Sushil Dean Jr., MD; Location: [facility] OR; Service: Orthopedics; Laterality: Right; [...] MD, 20 mg at 04/08/25 0800 heparin 48102 units/250 mL (100 units/mL) in 0.45 % [...] Units Date/Time FL C Arm During Surgery [[id number]] Resulted: 04/07/252137 Updated: 04/07/252137 Narrative: This procedure was auto-finalized with no dictation required. MRI Tibia Fibula Right With & Without Contrast [[id number]] Collected: 04/07/25 0938 Updated: 04/07/25 1001 Narrative: [...] Chitra 04/07/2025 9:58 AM EDT Workstation ID: [id number] Impression: Recurrent Right BKA stump abscess/cellulitis- this [...] from the original note were not included. [facility] Medicine Services PROGRESS NOTE Patient [...] Buenrostro 04/07/2025 9:58 AM EDT Workstation ID: [id number] I have personally reviewed the therapy plans: [...] Jason Álvarez, DO 04/08/25 * Hamilton, Larisa, [facility] - 04/08/2025 11:48 AM EDT Pharmacy [...] mg Daily 04/05/2025 -- Route: Oral heparin 79067 units/250 mL (100 units/mL) in 0.45 % [...] INFECTIOUS DISEASE Progress Note Won eDnnis 1980 [id number] Date of Consult: 04/08/2025 Admission Date: 04/04/2025 [...] which prompted him to seek treatment at [facility]. He is known to Dr. [...] Sushil Dean Jr., MD; Location: [facility] OR; Service: Orthopedics; Laterality: Right; PLACEMENT OF WOUND VAC Right 04/07/2025 Procedure: WOUND VACUUM ASSISTED CLOSURE; Surgeon: Sushil Dean Jr., MD; Location: [facility] OR; Service: Orthopedics; Laterality: Right; [...] Oral, Q6H PRN, 500 mg at 04/06/25 7004 OR acetaminophen (TYLENOL) 160 MG/5ML oral solution [...] Jr., MD, 20 mg at 04/07/25950 heparin 89115 units/250 mL (100 units/mL) in 0.45 % [...] Units Date/Time FL C Arm During Surgery [[id number]] Resulted: 04/07/252137 Updated: 04/07/252137 Narrative: This procedure was auto-finalized with no dictation required. MRI Tibia Fibula Right With & Without Contrast [[id number]] Collected: 04/07/25 0938 Updated: 04/07/25 1001 Narrative: [...] Buenrostro 04/07/2025 9:58 AM EDT Workstation ID: [id number] Impression: Right BKA stump cellulitis- s/p BKA with multiple surgical interventions with Known MRSA 05/09/2025. (Treated by ID in [place] Dr. Harris). Dr. Torres treated him with [...] from the original note were not included. [facility] Medicine Services PROGRESS NOTE Patient [...] Buenrostro 04/07/2025 9:58 AM EDT Workstation ID: [id number] I have personally reviewed the therapy plans: [...] Jason DO Preeti 04/07/25 * Larisa Hamilton, [facility] - 04/07/2025 11:56 AM EDT Pharmacy [...] INFECTIOUS DISEASE Progress Note Won Dennis 1980 [id number] Date of Consult: 04/07/2025 Admission Date: 04/04/2025 [...] which prompted him to seek treatment at [facility]. He is known to Dr. [...] MD, 20 mg at 04/06/25 0900 heparin 94148 units/250 mL (100 units/mL) in 0.45 % NaCl infusion, 18 Units/kg/hr, Intravenous, Titrated, Cherri Beatty, [facility], Last Rate: 24.1 mL/hr at 04/07/258, [...] With & Without Contrast - In process [[id number]] Resulted: 04/07/25828 Updated: 04/07/25828 This result has not been signed. Information might be incomplete. 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 (Treated by ID in [place] Dr. Harris). Dr. Torres treated him with [...] mg Daily 04/05/2025 -- Route: Oral heparin 91516 units/250 mL (100 units/mL) in 0.45 % [...] MD 04/07/25 06:07 EDT * Cherri Beatty [facility] - 04/06/2025 1:47 PM EDT Pharmacy [...] from the original note were not included. [facility] Medicine Services PROGRESS NOTE Patient [...] MD 04/04/2025 11:00 PM EDT Workstation ID: [id number] I have personally reviewed the therapy plans: [...] mg Daily 04/05/2025 -- Route: Oral heparin 90703 units/250 mL (100 units/mL) in 0.45 % [...] Dean Jr, MD 04/06/25 12:33 EDT * Calrton Mead MD - 04/06/2025 7:51 AM EDT Images from the original note were not included. INFECTIOUS DISEASE follow up. Won Dennis 1980 [id number] Date of Consult: 04/06/2025 Admission Date: 04/04/2025 [...] which prompted him to seek treatment at [facility]. He is known to Dr. [...] MD, 20 mg at 04/06/25 0900 heparin 33846 units/250 mL (100 units/mL) in 0.45 % NaCl infusion, 18 Units/kg/hr, Intravenous, Titrated, Cherri Beatty [facility], Last Rate: 24.1 mL/hr at 04/06/25 [...] mL 0.9% NS IVPB (S) Ordering Provider: aMrio Crowley, DO 20 mg/kg ?? 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 (Treated by ID in [place] Dr. Harris). Dr. Torres treated him with [...] from the original note were not included. [facility] Medicine Services PROGRESS NOTE Patient [...] MD 04/04/2025 11:00 PM EDT Workstation ID: [id number] I have personally reviewed the therapy plans: [...] from the original note were not included. [facility] Medicine Services HISTORY AND PHYSICAL [...] MD 04/04/2025 11:00 PM EDT Workstation ID: [id number] Assessment & Plan Assessment & Plan Won [...] 4FR PICC placed by Rhoda Bonner RN [facility], tip verified by 3CG see LDA. * Sushil Dean Jr., MD - 04/05/2025 8:07 AM EDTAssociated Order(s): IP CONSULT TO ORTHOPEDIC SURGERY [facility], [facility] [address] [address] Orthopedic Consult Patient: Won Dennis Date of Admission: 04/04/2025 4:10 PM Date of : 1980 Attending Physician: Jason Álvarez DO Consulting Physician: Sushil Dean Jr, MD Chief Complaint: 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 male admitted to [facility] with 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]. He [...] was evaluated in the emergency department in [place], was discharged with instructions for follow-up. He [...] mouth Daily. 04/03/2025 Morning Lactobacillus-Inulin ([facility]) capsule Take 200 mg by mouth Daily. [...] MD 04/04/2025 11:00 PM EDT Workstation ID: [id number] Assessment: Right BKA infection 44-year-old male with [...] not included. INFECTIOUS DISEASE CONSULT/INITIAL HOSPITAL VISIT Wno Dennis 1980 [id number] Date of Consult: 04/05/2025 Admission Date: 04/04/2025 [...] which prompted him to seek treatment at [facility]. He is known to Dr. [...] Leonora Shepherd MD, 40 mg at 04/04/25 7456 sennosides-docusate (PERICOLACE) 8.6-50 MG per tablet 2 [...] 1 Application, 1 Application, Topical, Q12H, Ayah Valenitn APRN ferrous sulfate tablet 325 mg, 325 mg, Oral, BID, Leonora Shepherd MD, 325 mg at 04/05/25 0916 furosemide (LASIX) tablet 20 mg, 20 mg, Oral, Daily, Leonora Shepherd MD, 20 mg at 04/05/25 09 heparin 46414 units/250 mL (100 units/mL) in 0.45 % [...] Leonora Shepherd MD, 10 mg at 04/04/25 8797 Pharmacy to Dose Heparin, , Not Applicable, [...] Tibia Fibula Right With & Without Contrast [[id number]] Collected: 04/04/252256 Updated: 04/04/252302 Narrative: MRI TIBIA [...] represent a small area of phlegmonous change (jyrfbs57 image 10) measuring approximately 1.6 cm which [...] MD 04/04/2025 11:00 PM EDT Workstation ID: [id number] Impression: Right BKA stump cellulitis- s/p BKA with multiple surgical interventions with Known MRSA 05/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 (Treated by ID in [place] Dr. Harris). Dr. Torres treated him with [...] Taken 04/09/2025 0000 by Bob oRsenberg RN Body Position: position changed independently left [...] MD - 04/08/2025 3:51 PM EDT [facility] OPERATIVE REPORT PATIENT NAME: Won Dennis DATE OF : 1980 PREOP DIAGNOSIS: Right Right below-knee amputation infection POSTOP DIAGNOSIS: Same. PROCEDURE: Right Right 43295: Secondary closure below-knee amputation SURGEON: Sushil Dean MD OPERATIVE TEAM: Perioperative Tech: Susi Grullon RN Scrub Person: Mary Paredes Scrub Person Extra: Hortencia Toribio Other: Katt Gotti RN; Charis Neville RN ANESTHETIST: Anesthesiologist: Ulises Hoffman MD FORGING DIE FINISHER: Stan Casillas CRNA Student Nurse Barratte Operator: Karol Albert SRNA ANESTHESIA: Choice ESTIMATED [...] CULTURE (Canceled) Sushil Dean Jr., MD 04/08/25 9809 Description: RIGHT LEG DEEP WOUND FOR CULTURE [...] PM EDT [facility], [place] [address] OPERATIVE REPORT PATIENT NAME: Won Dennis DATE OF : 1980 PREOP DIAGNOSIS: Right Right below knee amputation stump infection POSTOP DIAGNOSIS: Same. PROCEDURE: Right Right 18093: Incision and drainage of surgical site infection 32137: Debridement of skin, subcutaneous tissue, muscle 24800: Wound vacuum-assisted closure SURGEON: Sushil Dean MD OPERATIVE TEAM: Perioperative Tech: Anum Sanchez RN Scrub Person: Hortencia Toribio; Gerald Ivey NEUROSURGERY PHYSICIAN: Anesthesiologist: Luci Alonso DO ANESTHESIA: General ESTIMATED [...] ago swellling of the area. seen at [facility] yesterday for CT and US, [...] this chart in the absence of a visually impaired teacher. No orders to display RADIOLOGY: [x] Radiologist's [...] is discharging home with outpatient infusion at [facility]. He has an appointment with [facility] at 8:00 am tomorrow. They will do PICC line dressing changes. DEBRA has spoke with Dena at [facility] today multiple times to get [...] with KELLEE and given themhis Medicare number [id number], she sent it to Admission. DEBRA spoke [...] changes and lab work. DEBRA called Dena [facility] Outpatient infusion center they can accept patient and start him. He is known for their facility. The Facility will need to run it through his insurance first. CM faxed the orders over to [facility] at [phone]. CM will follow up with them tomorrow at [facility] to make sure they received [...] 04/09/2025 2:51 PM EDT Continued Stay Note [facility] Patient Name: Won Dennis Today's Date: 04/09/2025 Admit Date: 04/04/2025 Plan: Home Discharge Plan Row Name 04/09/25 1311 Plan Plan Home Patient/Family in Agreement with Plan yes Plan Comments CM spoke with patient at bedside today. Wheelchair from [employer] is at bedside. Patient getting PICC line [...] note were not included. Discharge Planning Assessment [facility] Patient Name: Won Dennis Today's Date: 04/07/2025 [...] with family Patient/Family Anticipated Services at [employer] [facility] Anticipated family or friend will provide Discharge [...] for home. [facility] He is not current with home [...] 9:0 7 PM EDT Right BKA infection HEPARIN ANTI [...] CBC Auto Differential (04/11/2025 3:40 AM EDT) [facility] WBC 7.87 3.40 - 10.80 10*3/mm3 04/11/2025 4:02 AM EDT [facility] RBC 4.70 4.14 - 5.80 10*6/mm3 04/11/2025 4:02 AM [facility] Hemoglobin 12.8(L) 13.0 - 17.7 g/dL 04/11/2025 4:02 AM [facility] Hematocrit 40.5 37.5 - 51.0 % 04/11/2025 4:02 AM [facility] MCV 86.2 79.0 - 97.0 fL 04/11/2025 4:02 AM [facility] MCH 27.2 [...] 0.3 - 6.2 % 04/11/2025 4:02 AM [facility] Basophil % 0.4 0.0 - 1.5 % 04/[facility]/2025 [facility] Immature Grans % 0.4 0.0 - 0.5 % 04/11/2025 4:02 AM EDT [facility] Neutrophils, Absolute 4.69 1.70 - 7.00 10*3/mm3 04/11/2025 4:02 AM EDT [facility] Lymphocytes, Absolute 2.07 0.70 - 3.10 10*3/mm3 04/11/2025 4:02 AM EDT [facility] Monocytes, Absolute 0.73 0.10 - 0.90 10*3/mm3 04/11/2025 4:02 AM EDT [facility] Eosinophils, Absolute 0.32 0.00 - 0.40 10*3/mm3 04/11/2025 4:02 AM EDT [facility] Basophils, Absolute 0.03 0.00 - 0.20 10*3/mm3 04/11/2025 4:02 AM EDT [facility] Immature Grans, Absolute 0.03 0.00 - 0.05 10*3/mm3 04/11/2025 4:02 AM EDT [facility] nRBC 0.0 0.0 - 0.2 /100 WBC 04/11/2025 4:02 AM EDT [facility] Blood Venipuncture / Unknown 04/11/2025 3:40 AM EDT 04/11/2025 3:59 AM EDT us Sushil Dean Jr., MD LAB BLOOD ORDERABLES Fi nal Result [facility]
[address] [place] [address], * (ABNORMAL) Comprehensive Metabolic Panel (04/11/2025 3:40 AM EDT) Glucose 108(H) 65 - 99 mg/dL 04/11/2025 4:19 AM EDT [facility] BUN 12.5 6.0 - 20.0 mg/dL 04/11/2025 4:19 AM EDT [facility] Creatinine 0.68(L) 0.76 - 1.27 [...] >60.0 mL/min/1.7 3 04/11/2025 4:19 AM EDT [facility] Blood Venipuncture / Unknown 04/11/2025 3:40 AM EDT 04/11/2025 3:56 AM EDT [facility] - 04/11/2025 4:19 AM EDT GFR [...] include race as a factor Rosario Hill APRN LAB BLOOD ORDERABLES Final Result [facility]
[address] [place] [address], * (ABNORMAL) CBC Auto Differential (04/10/2025 3:46 AM EDT) WBC 9.60 3.40 - 10.80 10*3/mm3 04/10/2025 3:56 AM EDT [facility] RBC 4.67 4.14 - 5.80 10*6/mm3 04/10/2025 3:56 AM EDT [facility] Hemoglobin 12.9(L) 13.0 - 17.7 g/dL 04/10/2025 3:56 AM EDT [facility] Hematocrit 40.1 37.5 - 51.0 % 04/10/2025 3:56 AM EDT [facility] MCV 85.9 79.0 - 97.0 fL 04/10/2025 3:56 AM EDT [facility] MCH 27.6 26.6 - 33.0 pg 04/10[facility]25 [facility] MCHC 32.2 31.5 - 35.7 g/dL 04/10/2025 3:56 AM EDT [facility] RDW 12.9 12.3 - 15.4 % 04/10/2025 3:[facility] RDW-SD 40.5 37.0 - 54.0 fl 04/10/2025 3:56 AM EDT [facility] MPV 9.5 6.0 - 12.0 fL 04/10/2025 3:56 AM EDT [facility] Platelets 227 140 - 450 10*3/mm3 04/10/2025 3:56 AM [facility] Neutrophil % 59.1 42.7 - 76.0 % 04/10/2025 3:56 AM [facility] Lymphocyte % 29.0 19.6 - 45.3 % 04/10/2025 3:[facility] Monocyte % 8.1 5.0 - 12.0 % 04/10/2025 3:56 AM [facility] Eosinophil % 3.2 0.3 - 6.2 % 04/10/2025 3:56 AM [facility] Basophil % 0.4 0.0 - 1.5 % 04/10/2025 3:56 AM [facility] Immature Grans % 0.2 0.0 - 0.5 % 04/10/2025 3:56 [facility] Neutrophils, Absolute 5.67 1.70 - 7.00 10*3/mm3 04/10/2025 3:56 [facility] Lymphocytes, Absolute 2.78 0.70 - 3.10 10*3/mm3 04/10/2025 3:56 [facility] Monocytes, Absolute 0.78 0.10 - 0.90 10*3/mm3 04/10/2025 3:56 AM [facility] Eosinophils, Absolute 0.31 0.00 - 0.40 10*3/mm3 04/10/2025 3:56 AM EDT [facility] Basophils, Absolute 0.04 0.00 - 0.20 10*3/mm3 04/10/2025 3:56 AM EDT [facility] Immature Grans, Absolute 0.02 0.00 - 0.05 10*3/mm3 04/10/2025 3:56 AM EDT [facility] nRBC 0.0 0.0 - 0.2 /100 WBC 04/10/2025 3:56 AM EDT [facility] Blood Venipuncture / Unknown 04/10/2025 3:46 AM EDT 04/10/2025 3:53 AM EDT us Jason Álvarez DO LAB BLOOD ORDERABLES Final Resul t [facility]
[address] [place] [address], * (ABNORMAL) Basic Metabolic Panel (04/10/2025 3:46 AM EDT) Glucose 125(H) 65 - 99 mg/dL 04/10/2025 4:20 AM EDT [facility] BUN 15.9 6.0 - 20.0 mg/dL 04/10/2025 4:20 AM EDT [facility] Creatinine 0.77 0.76 - 1.27 mg/dL 04/10/2025 4:20 AM EDT [facility] Sodium 137 136 - 145 mmol/L 04/10/2025 4:20 AM EDT [facility] Potassium 3.9 3.5 - 5.2 mmol/L 04/10/2025 4:20 AM EDT [facility] Chloride 102 98 - 107 mmol/L 04/10/2025 4:20 AM EDT [facility] CO2 26.9 22.0 - 29.0 mmol/L 04/10/2025 4:20 AM EDT [facility] Calcium 7.9(L) 8.6 - 10.5 mg/dL 04/10/2025 4:20 AM EDT [facility] BUN/Creatinine Ratio 20.6 7.0 - 25.0 04/10/2025 4:20 AM EDT [facility] Anion Gap 8.1 5.0 - 15.0 mmol/L 04/10/2025 4:20 AM EDT [facility] eGFR 113.2 >60.0 mL/min/1.7 3 04/10/2025 4:20 AM EDT [facility] Blood Venipuncture / Unknown 04/10/2025 3:46 AM EDT 04/10/2025 3:52 AM EDT Narrative [facility] - 04/10/2025 4:20 AM EDT [...] DO LAB BLOOD ORDERABLES Final Resul t [facility]
[address] [place] [address], * Heparin Anti-Xa (04/10/2025 3:46 AM EDT) Heparin Anti-Xa (UFH) 0.35 0.30 - 0.70 IU/ml 04/10/2025 4:23 AM EDT [facility] Blood Venipuncture / Unknown 04/10/2025 3:46 AM EDT 04/10/2025 3:53 AM EDT Larisa Hamilton [facility] LAB BLOOD ORDERABLES Final R esult [facility]
[address] [place] [address], * Heparin Anti-Xa (04/09/2025 10:05 AM EDT) Pathologist [facility] Heparin Anti-Xa (UFH) 0.36 0.30 - 0.70 IU/ml 04/09/2025 11:12 AM EDT [facility] Blood Venipuncture / Unknown 04/09/2025 10:05 AM EDT 04/09/2025 10:47 AM EDT Larisa Hamilton [facility] LAB BLOOD ORDERABLES Final R esult [facility]
[address] [place] [address], * (ABNORMAL) CBC Auto Differential (04/09/2025 4:18 AM EDT) Pathologist [facility] WBC 11.00(H) 3.40 - 10.80 10*3/mm3 04/09/2025 4:50 AM EDT [facility] RBC 4.70 4.14 - 5.80 10*6/mm3 04/09/2025 4:50 AM EDT [facility] Hemoglobin 13.0 13.0 - 17.7 g/dL 04/09/2025 4:50 AM EDT [facility] Hematocrit 40.4 37.5 - 51.0 % 04/09/2025 4:50 AM EDT [facility] MCV 86.0 79.0 - 97.0 fL 04/09/2025 4:50 AM EDT [facility] MCH 27.7 26.6 - 33.0 pg 04/09/2025 4:50 AM EDT [facility] MCHC 32.2 31.5 - 35.7 g/dL 04/09/2025 4:50 AM EDT [facility] RDW 12.8 12.3 - 15.4 % 04/09/2025 4:50 AM [facility] RDW-SD 39.9 37.0 - 54.0 fl 04/09/2025 4:50 AM [facility] MPV 10.0 6.0 - 12.0 fL 04/09/2025 4:50 AM [facility] Platelets 211 140 - 450 10*3/mm3 04/09/2025 4:50 AM [facility] Neutrophil [...] 0.10 - 0.90 10*3/mm3 04/09/2025 4:50 AM [facility] Eosinophils, Absolute 0.07 0.00 - 0.40 10*3/mm3 04/09/2025 4:[facility] [address] [facility] Basophils, Absolute 0.04 0.00 - 0.20 10*3/mm3 04/09/2025 4:50 AM EDT [facility] Immature Grans, Absolute 0.03 0.00 - 0.05 10*3/mm3 04/09/2025 4:50 AM EDT [facility] nRBC 0.0 0.0 - 0.2 /100 WBC 04/09/2025 4:50 AM EDT [facility] Blood Venipuncture / Unknown 04/09/2025 4:18 AM EDT 04/09/2025 4:31 AM EDT Sushil Dean Jr., MD LAB BLOOD ORDERABLES Fi nal Result Performing Organization Address City/[facility]/ZIP Co de Phone Number [facility]
[address] [place] [address], * Heparin Anti-Xa (04/09/2025 4:18 AM EDT) Heparin Anti-Xa (UFH) 0.41 0.30 - 0.70 IU/ml 04/09/2025 4:53 AM EDT [facility] Blood Venipuncture / Unknown 04/09/2025 4:18 AM EDT 04/09/2025 4:31 AM EDT Una LundbergD LAB BLOOD ORDERABLES Final R esult [facility]
[address] [place] [address], * (ABNORMAL) Basic Metabolic Panel (04/09/2025 4:18 AM EDT) Glucose 147(H) 65 - 99 mg/dL 04/09/2025 5:33 AM EDT [facility] BUN 23.0(H) 6.0 - 20.0 mg/dL 04/09/2025 5:33 AM EDT [facility] Creatinine 1.15 0.76 - 1.27 mg/dL 04/09/2025 5:33 AM EDT [facility] Sodium 135(L) 136 - 145 mmol/L 04/09/2025 5:33 AM EDT [facility] Potassium 4.2 3.5 - 5.2 mmol/L 04/09/2025 5:33 AM EDT [facility] Chloride 100 98 - 107 mmol/L 04/09/2025 5:33 AM EDT [facility] CO2 26.0 22.0 - 29.0 mmol/L 04/09/2025 5:33 AM EDT [facility] Calcium 8.2(L) 8.6 - 10.5 mg/dL 04/09/2025 5:33 AM EDT [facility] BUN/Creatinine Ratio 20.0 7.0 - 25.0 04/09/2025 5:33 AM EDT [facility] Anion Gap 9.0 5.0 - 15.0 mmol/L 04/09/2025 5:33 AM EDT [facility] eGFR 80.5 >60.0 mL/min/1.7 3 04/09/2025 5:33 AM EDT [facility] Blood Venipuncture / Unknown 04/09/2025 4:18 AM EDT 04/09/2025 4:29 AM EDT [facility] - 04/09/2025 5:33 AM EDT GFR [...] MD LAB BLOOD ORDERABLES Fi nal Result [facility]
[address] [place] [address], * Wound Culture - Swab, Leg, Right (04/08/2025 3:40 PM EDT) Wound Culture No growth at 3 days ALIZA 04/11/2025 10:40 AM EDT [facility] Gram Stain Few (2+) WBCs seen 04/11/2025 10:40 AM EDT [facility] Gram Stain No organisms seen 04/11/2025 10:40 AM EDT [facility] Swab Structure of right lower limb / Unknown 04/08/2025 3:40 PM EDT 04/08/2025 8:05 PM EDT us Sushil Dean Jr., MD MICROBIOLOGY - GENERAL ORDERABLES Final Result Performing Organization Address City/[facility]/ZIP Co de Phone Number [facility]
[address] [place] [address], [facility]
[address] [place] [address], * Anaerobic Culture - Swab, Leg, Right (04/08/2025 3:40 PM EDT) Anaerobic Culture No anaerobes isolated at 5 days ALIZA 04/13/2025 7:24 AM EDT [facility] Swab Structure of right lower limb / Unknown 04/08/2025 3:40 PM EDT 04/08/2025 8:05 PM EDT us Sushil Dean Jr., MD MICROBIOLOGY - GENERAL ORDERABLES Final Result Performing Organization Address City/[facility]/ZIP Co de Phone Number [facility]
[address] [place] [address], * Scan Slide (04/08/2025 8:41 AM EDT) RBC Morphology Normal Normal 04/08/2025 11:02 AM EDT [facility] WBC Morphology Normal Normal 04/08/2025 11:02 AM EDT [facility] Platelet Estimate Adequate Normal 04/08/2025 11:02 AM EDT [facility] Clumped Platelets Present None Seen 04/08/2025 11:02 AM EDT [facility] Blood Venipuncture / Unknown 04/08/2025 8:41 AM EDT 04/08/2025 9:10 AM EDT Una Minda PharmD LAB BLOOD ORDERABLES Final R esult [facility]
[address] [place] [address], * (ABNORMAL) CBC Auto Differential (04/08/2025 8:41 AM EDT) WBC 10.07 3.40 - 10.80 10*3/mm3 04/08/2025 11:02 AM EDT [facility] RBC 5.01 4.14 - 5.80 10*6/mm3 04/08/2025 11:02 AM EDT [facility] Hemoglobin 14.0 13.0 - 17.7 g/dL 04/08/2025 11:02 AM EDT [facility] Hematocrit 42.7 37.5 - 51.0 % 04/08/2025 11:02 AM EDT [facility] MCV 85.2 79.0 - 97.0 fL 04/08/2025 11:02 AM EDT [facility] MCH 27.9 26.6 - 33.0 pg 04/08/2025 11:02 AM EDT [facility] MCHC 32.8 31.5 - 35.7 g/dL 04/08/2025 11:02 AM EDT [facility] RDW 12.6 12.3 - 15.4 % 04/08/2025 11:02 AM EDT [facility] RDW-SD 38.9 37.0 - 54.0 [...] - 0.05 10*3/mm3 04/08/2025 11:02 AM EDT [facility] nRBC 0.0 0.0 - 0.2 /100 WBC 04/08/2025 11:02 AM EDT [facility] Blood Venipuncture / Unknown 04/08/2025 8:41 AM EDT 04/08/2025 9:10 AM EDT Una Perla PharmD LAB BLOOD ORDERABLES Final R esult [facility]
[address] [place] [address], * (ABNORMAL) Basic Metabolic Panel (04/08/2025 8:41 AM EDT) Glucose 125(H) 65 - 99 mg/dL 04/08/2025 9:51 AM EDT [facility] BUN 13.2 6.0 - 20.0 mg/dL 04/08/2025 9:51 AM EDT [facility] Creatinine 0.69(L) 0.76 - 1.27 mg/dL 04/08/2025 9:51 AM EDT [facility] Sodium 136 136 - 145 mmol/L 04/08/2025 9:51 AM EDT [facility] Potassium 4.6 3.5 - 5.2 mmol/L 04/08/2025 9:51 AM EDT [facility] Chloride 102 98 - 107 mmol/L 04/08/2025 9:51 AM EDT [facility] CO2 23.5 22.0 - 29.0 mmol/L 04/08/2025 9:51 AM EDT [facility] Calcium 8.4(L) 8.6 - 10.5 mg/dL 04/08/2025 9:51 AM EDT [facility] BUN/Creatinine Ratio 19.1 7.0 - 25.0 04/08/2025 9:51 AM EDT [facility] Anion Gap 10.5 5.0 - 15.0 mmol/L 04/08/2025 9:51 AM EDT [facility] eGFR 117.0 >60.0 mL/min/1.7 3 04/08/2025 9:51 AM EDT [facility] Blood Venipuncture / Unknown 04/08/2025 8:41 AM EDT 04/08/2025 9:09 AM EDT Narrative [facility] - 04/08/2025 9:51 AM EDT [...] ORDERABLES Fi nal Result Performing Organization Address City/[facility]/ZIP Co de Phone Number [facility]
[address] [place] [address], * Heparin Anti-Xa (04/08/2025 8:41 AM EDT) Heparin Anti-Xa (UFH) 0.33 0.30 - 0.70 IU/ml 04/08/2025 9:40 AM EDT [facility] Blood Venipuncture / Unknown 04/08/2025 8:41 AM EDT 04/08/2025 9:10 AM EDT Sushil Dean Jr., MD LAB BLOOD ORDERABLES Fi nal Result Performing Organization Address City/[facility]/ZIP Co de Phone Number [facility]
[address] [place] [address], * FL C Arm During Surgery (04/07/2025 [...] Occasional WBCs seen 04/11/2025 10:40 AM EDT [facility] Gram Stain No organisms seen 04/11/2025 10:40 AM EDT [facility] Swab Structure of right lower limb / Unknown Collection / Unknown 04/07/2025 9:14 PM EDT 04/08/2025 4:36 AM EDT us Sushil Dean Jr., MD MICROBIOLOGY - GENERAL ORDERABLES Final Result Performing Organization Address City/[facility]/ZIP Co de Phone Number [facility]
[address] [place] [address], [place] [phone] [facility]
[address] [place] [address], [place] [phone] * Anaerobic Culture - Swab, Leg, Right [...] [facility]
[address] [place] [address], * Anaerobic Culture - Tissue, Leg (04/07/2025 9:13 PM EDT) Anaerobic Culture No anaerobes isolated at 5 days ALIZA 04/13/2025 7:21 AM EDT [facility] Tissue Lower limb structure / Unknown Collection / Unknown 04/07/2025 9:13 PM EDT 04/08/2025 4:54 AM EDT Jason Álvarez DO MICROBIOLOGY - GENERAL ORDERABLE S Final Result Performing Organization Address [facility]/State/ZIP Co de Phone Number [facility]
[address] [place] [address], * Tissue / Bone Culture - Tissue, Leg, Right (04/07/2025 9:13 PM EDT) Tissue Culture No growth at 3 days ALIZA 04/11/2025 10:36 AM EDT [facility] Gram Stain Rare (1+) WBCs seen 04/11/2025 10:36 AM EDT [facility] Gram Stain No organisms seen 04/11/2025 10:36 AM EDT [facility] Tissue Structure of right lower limb / Unknown 04/07/2025 9:13 PM EDT 04/08/2025 4:54 AM EDT Sushil Dean Jr., MD MICROBIOLOGY - GENERAL ORDERABLES Final Result [facility]
[address] [place] [address], [facility]
[address] [place] [address], [place] [phone] * (ABNORMAL) Wound Culture - Swab, Leg, Right (04/07/2025 9:07 PM EDT) Wound Culture Light growth (2+) Staphylococcus aureus, MRSA(A) ALIZA 04/10/2025 10:38 AM EDT [facility] Comment: Methicillin resistant Staphylococcus aureus, Patient may be an isolation risk. Gram Stain Few (2+) WBCs seen 04/10/2025 10:38 AM EDT [facility] Gram Stain No organisms seen 10:38 AM EDT [facility] Swab Structure of right [...] [facility]
[address] [place] [address], [place] [phone] [facility]
[address] [place] [address], [place] [phone] * Anaerobic Culture - Swab, Leg, Right [...] [facility]
[address] [place] [address], * Heparin Anti-Xa (04/07/2025 9:10 AM EDT) Pathologist [facility] Heparin Anti-Xa (UFH) 0.30 0.30 - 0.70 IU/ml 04/07/2025 10:12 AM EDT [facility] Blood Venipuncture / Unknown 04/07/2025 9:10 AM EDT 04/07/2025 9:38 AM EDT Una Perla PharmD LAB BLOOD ORDERABLES Final R esult Performing Organization Address City/[facility]/ZIP Co de Phone Number [facility]
[address] [place] [address], * (ABNORMAL) CBC Auto Differential (04/07/2025 9:10 AM EDT) Pathologist [facility] WBC 8.63 3.40 - 10.80 10*3/mm3 04/07/2025 9:50 AM EDT [facility] RBC 5.23 4.14 - 5.80 10*6/mm3 04/07/2025 9:50 AM EDT [facility] Hemoglobin 14.7 13.0 - 17.7 g/dL 04/07/2025 9:50 AM EDT [facility] Hematocrit 44.8 37.5 - 51.0 % 04/07/2025 9:50 AM EDT [facility] MCV 85.7 79.0 - 97.0 fL 04/07/2025 9:50 AM EDT [facility] MCH 28.1 26.6 - 33.0 pg 04/07/2025 9:50 AM EDT [facility] MCHC 32.8 31.5 - 35.7 g/dL 04/07/2025 9:50 AM EDT [facility] RDW 12.8 12.3 - 15.4 [...] - 0.05 10*3/mm3 04/07/2025 9:50 AM EDT [facility] nRBC 0.0 0.0 - 0.2 /100 WBC 04/07/2025 9:50 AM EDT [facility] Blood Venipuncture / Unknown 04/07/2025 9:10 AM EDT 04/07/2025 9:38 AM EDT us Jason Álvarez DO LAB BLOOD ORDERABLES Final Resul t [facility]
[address] [place] [address], * (ABNORMAL) Basic Metabolic Panel (04/07/2025 9:10 AM EDT) Glucose 112(H) 65 - 99 mg/dL 04/07/2025 10:19 AM EDT [facility] BUN 13.1 6.0 - 20.0 mg/dL 04/07/2025 10:19 AM EDT [facility] Creatinine 0.77 0.76 - 1.27 mg/dL 04/07/2025 10:19 AM EDT [facility] Sodium 139 136 - 145 mmol/L 04/07/2025 10:19 AM EDT [facility] Potassium 4.2 3.5 - 5.2 mmol/L 04/07/2025 10:19 AM EDT [facility] Comment:Specimen hemolyzed. Result may be falsely elevated. Chloride 105 98 - 107 mmol/L 04/07/2025 10:19 AM EDT [facility] CO2 24.8 22.0 - 29.0 mmol/L 04/07/2025 10:19 AM EDT [facility] Calcium 8.6 8.6 - 10.5 mg/dL 04/07/2025 10:19 AM EDT [facility] BUN/Creatinine Ratio 17.0 7.0 - 25.0 04/07/2025 10:19 AM EDT [facility] Anion Gap 9.2 5.0 - 15.0 mmol/L 04/07/2025 10:19 AM EDT [facility] eGFR 113.2 >60.0 mL/min/1.7 3 04/07/2025 10:19 AM EDT [facility] Blood Venipuncture / Unknown 04/07/2025 9:10 AM EDT 04/07/2025 9:38 AM EDT Narrative [facility] - 04/07/2025 10:19 AM EDT [...] DO LAB BLOOD ORDERABLES Final Resul t [facility]
[address] [place] [address], * MRI Tibia Fibula Right With & [...] [place] 04/07/2025 9:58 AM EDT Workstation ID: [id number] Narrative 04/07/2025 9:58 AM EDT MRI TIBIA [...] [place] 04/07/2025 9:58 AM EDT Workstation ID: [id number] Sushil Dean Jr., MD IMG MRI ORDERABLES Mary Beth l Result * Heparin Anti-Xa (04/07/2025 1:42 AM EDT) [facility] Heparin Anti-Xa (UFH) 0.38 0.30 - 0.70 IU/ml 04/07/2025 2:14 AM EDT [facility] Blood Venipuncture / Unknown 04/07/2025 1:42 AM EDT 04/07/2025 1:54 AM EDT Chelsie Turpin [facility] LAB BLOOD ORDERABLES Final R esult [facility]
[address] [place] [address], * Heparin Anti-Xa (04/06/2025 7:16 PM EDT) [facility] Heparin Anti-Xa (UFH) 0.33 0.30 - 0.70 IU/ml 04/06/2025 7:50 PM EDT [facility] Blood Venipuncture / Unknown 04/06/2025 7:16 PM EDT 04/06/2025 7:35 PM EDT Cherri Beatty [facility] LAB BLOOD ORDERABLES Final Res ult Performing Organization Address [facility] Co de Phone Number [facility]
[address] [place] [address], * Potassium (04/06/2025 7:16 PM EDT) [facility] Potassium 4.0 3.5 - 5.2 mmol/L 04/06/2025 7:53 PM EDT [facility] Blood Venipuncture / Unknown 04/06/2025 7:16 PM EDT 04/06/2025 7:35 PM EDT Jason Álvarez DO LAB BLOOD ORDERABLES Final Resul t Performing Organization Address [facility] de Phone Number [facility]
[address] [place] [address], * (ABNORMAL) Heparin Anti-Xa (04/06/2025 12:36 PM EDT) [facility] Heparin Anti-Xa (UFH) 0.24(L) 0.30 - 0.70 IU/ml 04/06/2025 1:23 PM EDT [facility] Blood Venipuncture / Unknown 04/06/2025 12:36 PM EDT 04/06/2025 1:07 PM EDT Una Perla PharmD LAB BLOOD ORDERABLES Final R esult Performing Organization Address [facility] Co de Phone Number [facility]
[address] [place] [address], * (ABNORMAL) Heparin Anti-Xa (04/06/2025 3:42 AM EDT) [facility] Heparin Anti-Xa (UFH) 0.25(L) 0.30 - 0.70 IU/ml 04/06/2025 5:30 AM EDT [facility] Blood Venipuncture / Unknown 04/06/2025 3:42 AM EDT 04/06/2025 4:59 AM EDT Chelsie Dyana [facility] LAB BLOOD ORDERABLES Final R esult [facility]
[address] [place] [address], * (ABNORMAL) Basic Metabolic Panel (04/06/2025 3:42 AM EDT) [facility] Glucose 94 65 - 99 mg/dL 04/06/2025 5:59 AM EDT [facility] BUN 12.8 6.0 - 20.0 mg/dL 04/06/2025 5:59 AM EDT [facility] Creatinine 0.80 0.76 - 1.27 mg/dL 04/06/2025 5:59 AM EDT [facility] Sodium 138 136 - 145 mmol/L 04/06/2025 5:59 AM EDT [facility] Potassium 3.6 3.5 - 5.2 mmol/L 04/06/2025 5:59 AM EDT [facility] Chloride 103 98 - 107 mmol/L 04/06/2025 5:59 AM EDT [facility] CO2 24.2 22.0 - 29.0 mmol/L 04/06/2025 5:59 AM EDT [facility] Calcium 8.0(L) 8.6 - 10.5 mg/dL 04/06/2025 5:59 AM EDT [facility] BUN/Creatinine Ratio 16.0 7.0 - 25.0 04/06/2025 5:59 AM EDT [facility] Anion Gap 10.8 5.0 - 15.0 mmol/L 04/06/2025 5:59 AM EDT [facility] eGFR 111.9 >60.0 mL/min/1.7 3 04/06/2025 5:59 AM EDT [facility] Blood Venipuncture / Unknown 04/06/2025 3:42 AM EDT 04/06/2025 5:20 AM EDT [facility] - 04/06/2025 5:59 AM EDT GFR [...] DO LAB BLOOD ORDERABLES Final Resul t [facility]
[address] [place] [address], * (ABNORMAL) CBC Auto Differential (04/06/2025 3:41 AM EDT) WBC 10.86(H) 3.40 - 10.80 10*3/mm3 04/06/2025 5:04 AM EDT [facility] RBC 5.08 4.14 - 5.80 10*6/mm3 04/06/2025 5:04 AM EDT [facility] Hemoglobin 13.9 13.0 - 17.7 g/dL 04/06/2025 5:04 AM EDT [facility] Hematocrit 43.7 37.5 - 51.0 % 04/06/2025 5:04 AM EDT [facility] MCV 86.0 79.0 - 97.0 fL 04/06/2025 [facility] MCH 27.4 26.6 - 33.0 pg [...] - 1.5 % 04/06/2025 5:[facility] Immature Grans % 0.3 0.0 - 0.5 % 04/06/2025 5:04 AM [facility] Neutrophils, Absolute 7.09(H) 1.70 - 7.00 10*3/mm3 04/06/2025 5:[facility] Lymphocytes, Absolute 2.23 0.70 - 3.10 10*3/mm3 04/06/2025 5:[facility] Monocytes, Absolute 1.28(H) 0.10 - 0.90 10*3/mm3 04/06/2025 5:04 AM EDT [facility] Eosinophils, Absolute 0.20 0.00 - 0.40 10*3/mm3 04/06/2025 5:04 AM EDT [facility] Basophils, Absolute 0.03 0.00 - 0.20 10*3/mm3 04/06/2025 5:04 AM EDT [facility] Immature Grans, Absolute 0.03 0.00 - 0.05 10*3/mm3 04/06/2025 5:04 AM EDT [facility] nRBC 0.0 0.0 - 0.2 /100 WBC 04/06/2025 5:04 AM EDT [facility] Blood Venipuncture / Unknown 04/06/2025 3:41 AM EDT 04/06/2025 4:58 AM EDT Jason Álvarez DO LAB BLOOD ORDERABLES Final Resul t Performing Organization Address City/[facility] Co de Phone Number [facility]
[address] [place] [address], [place] [phone] * Heparin Anti-Xa (04/05/2025 8:43 PM EDT) Pathologist [facility] Heparin Anti-Xa (UFH) 0.38 0.30 - 0.70 IU/ml 04/05/2025 9:09 PM EDT [facility] Blood Venipuncture / Unknown 04/05/2025 8:43 PM EDT 04/05/2025 8:55 PM EDT us Cherri Beatty [facility] LAB BLOOD ORDERABLES Final Res ult Performing Organization Address City/[facility] Co de Phone Number [facility]
[address] [place] [address], [place] [phone] * CK (04/05/2025 12:15 PM EDT) Creatine Kinase 140 20 - 200 U/L 04/05/2025 1:31 PM EDT [facility] Blood Venipuncture / Unknown 04/05/2025 12:15 PM EDT 04/05/2025 1:03 PM EDT Carlton Mead MD LAB BLOOD ORDERABLES Final R esult Performing Organization Address City/[facility]/ZIP Co de Phone Number [facility]
[address] [place] [address], * (ABNORMAL) Heparin Anti-Xa (04/05/2025 12:15 PM EDT) [facility] Heparin Anti-Xa (UFH) 0.17(L) 0.30 - 0.70 IU/ml 04/05/2025 1:21 PM EDT [facility] Blood Venipuncture / Unknown 04/05/2025 12:15 PM EDT 04/05/2025 1:04 PM EDT Una Perla PharmD LAB BLOOD ORDERABLES Final R esult Performing Organization Address City/[facility] Co de Phone Number [facility]
[address] [place] [address], * (ABNORMAL) aPTT (04/05/2025 3:54 AM EDT) [facility] PTT 35.3(L) 60.0 - 90.0 seconds 04/05/2025 4:31 AM EDT [facility] Blood Venipuncture / Unknown 04/05/2025 3:54 AM EDT 04/05/2025 4:15 AM EDT Narrative [facility] - 04/05/2025 4:31 AM EDT PTT = The equivalent PTT values for the therapeutic range of heparin levels at 0.3 to 0.5 U/ml are 60 to 70 seconds. JoMaJaD LAB BLOOD ORDERABLES Final R esult [facility]
[address] [place] [address], * Heparin Anti-Xa (04/05/2025 3:54 AM EDT) Pathologist [facility] Heparin Anti-Xa (UFH) 0.30 0.30 - 0.70 IU/ml 04/05/2025 4:32 AM EDT [facility] Blood Venipuncture / Unknown 04/05/2025 3:54 AM EDT 04/05/2025 4:15 AM EDT JoMaJaD LAB BLOOD ORDERABLES Final R esult Performing Organization Address City/[facility]/ZIP Co de Phone Number [facility]
[address] [place] [address], * (ABNORMAL) CBC Auto Differential (04/05/2025 3:54 AM EDT) [facility] WBC 11.18(H) 3.40 - 10.80 10*3/mm3 04/05/2025 4:20 AM EDT [facility] RBC 5.00 4.14 - 5.80 10*6/mm3 04/05/2025 4:20 AM EDT [facility] Hemoglobin 13.9 13.0 - 17.7 g/dL 04/05/2025 4:20 AM EDT [facility] Hematocrit 42.4 37.5 - 51.0 % 04/05/2025 4:20 AM EDT [facility] MCV 84.8 79.0 - 97.0 fL 04/05/2025 4:20 AM EDT [facility] MCH 27.8 26.6 - 33.0 pg 04/05/2025 4:20 AM EDT [facility] MCHC 32.8 31.5 - 35.7 [...] - 0.20 10*3/mm3 04/05/2025 4:20 AM EDT [facility] Immature Grans, Absolute 0.04 0.00 - 0.05 10*3/mm3 04/05/2025 4:20 AM EDT [facility] nRBC 0.0 0.0 - 0.2 /100 WBC 04/05/2025 4:20 AM EDT [facility] Blood Venipuncture / Unknown 04/05/2025 3:54 AM EDT 04/05/2025 4:16 AM EDT Una Perla PharmD LAB BLOOD ORDERABLES Final R esult [facility]
[address] [place] [address], * (ABNORMAL) Basic Metabolic Panel (04/05/2025 3:54 AM EDT) Glucose 152(H) 65 - 99 mg/dL 04/05/2025 4:40 AM EDT [facility] BUN 17.3 6.0 - 20.0 mg/dL 04/05/2025 4:40 AM EDT [facility] Creatinine 0.92 0.76 - 1.27 mg/dL 04/05/2025 4:40 AM EDT [facility] Sodium 136 136 - 145 mmol/L 04/05/2025 4:40 AM EDT [facility] Potassium 3.9 3.5 - 5.2 mmol/L 04/05/2025 4:40 AM EDT [facility] Chloride 103 98 - 107 mmol/L 04/05/2025 4:40 AM EDT [facility] CO2 24.0 22.0 - 29.0 mmol/L 04/05/2025 4:40 AM EDT [facility] Calcium 7.8(L) 8.6 - 10.5 mg/dL 04/05/2025 4:40 AM EDT [facility] BUN/Creatinine Ratio 18.8 7.0 - 25.0 04/05/2025 4:40 AM EDT [facility] Anion Gap 9.0 5.0 - 15.0 mmol/L 04/05/2025 4:40 AM EDT [facility] eGFR 105.2 >60.0 mL/min/1.7 3 04/05/2025 4:40 AM EDT [facility] Blood Venipuncture / Unknown 04/05/2025 3:54 AM EDT 04/05/2025 4:15 AM EDT [facility] - 04/05/2025 4:40 AM EDT GFR [...] MD LAB BLOOD ORDERABLES Final Re sult [facility]
[address] [place] [address], * (ABNORMAL) aPTT (04/05/2025 12:18 AM EDT) PTT 33.6(L) 60.0 - 90.0 seconds 04/05/2025 12:53 AM EDT [facility] Blood Venipuncture / Unknown 04/05/2025 12:18 AM EDT 04/05/2025 12:37 AM EDT [facility] - 04/05/2025 12:53 AM EDT PTT = The equivalent PTT values for the therapeutic range of heparin levels at 0.3 to 0.5 U/ml are 60 to 70 seconds. Nala PharmD LAB BLOOD ORDERABLES Final R esult [facility]
[address] [place] [address], [place] [phone] * (ABNORMAL) Protime-INR (04/05/2025 12:18 AM EDT) Protime 15.9(H) 12.2 - 15.3 Seconds 04/05/2025 12:53 AM EDT [facility] INR 1.19(H) 0.89 - 1.12 04/05/2025 12:53 AM EDT [facility] Blood Venipuncture / Unknown 04/05/2025 12:18 AM EDT 04/05/2025 12:37 AM EDT Nala PharmD LAB BLOOD ORDERABLES Final R esult Performing Organization Address [facility] Co de Phone Number [facility]
[address] [place] [address], [place] [phone] * Heparin Anti-Xa (04/05/2025 12:18 AM EDT) Pathologist [facility] Heparin Anti-Xa (UFH) 0.39 0.30 - 0.70 IU/ml 04/05/2025 12:54 AM EDT [facility] Blood Venipuncture / Unknown 04/05/2025 12:18 AM EDT 04/05/2025 12:37 AM EDT Nala PharmD LAB BLOOD ORDERABLES Final R esult Performing Organization Address City/[facility]/ZIP Co de Phone Number [facility]
[address] [place] [address], [place] [phone] * MRI Tibia Fibula Right With & [...] MD 04/04/2025 11:00 PM EDT Workstation ID: [id number] Narrative 04/04/2025 11:00 PM EDT MRI TIBIA [...] MD 04/04/2025 11:00 PM EDT Workstation ID: [id number] Leonora Shepherd MD IMG MRI ORDERABLES Final Resu lt * POC Creatinine (04/04/2025 2:49 PM EDT) Creatinine 1.10 0.60 - 1.30 mg/dL 04/07/2025 7:14 PM EDT [facility] Comment:Serial Number: [id number]: [id number] Venous Blood 04/04/2025 2:49 PM EDT 04/07/2025 7:14 PM EDT Jason Álvarez DO POINT OF CARE TEST ORDERABLES Fi nal Result [facility]
[address] [place] [address], [place] [phone] * (ABNORMAL) CBC Auto Differential (04/04/2025 2:47 PM EDT) [facility] Signature WBC 12.72(H) 3.40 - 10.80 10*3/mm3 04/04/2025 2:56 PM EDT [facility] RBC 5.64 4.14 - 5.80 10*6/mm3 04/04/2025 2:56 PM EDT [facility] Hemoglobin 15.3 13.0 - 17.7 g/dL 04/04/2025 2:56 PM EDT [facility] Hematocrit 47.9 37.5 - 51.0 % 04/04/2025 2:56 PM EDT [facility] MCV 84.9 79.0 - 97.0 fL 04/04/2025 2:56 PM EDT [facility] MCH 27.1 26.6 - 33.0 pg 04/04/2025 2:56 PM EDT [facility] MCHC 31.9 31.5 - 35.7 g/dL 04/04/2025 2:56 PM EDT [facility] RDW 13.1 12.3 - 15.4 % 04/04/2025 2:56 PM EDT [facility] RDW-SD 40.3 37.0 - 54.0 fl 04/04/2025 2:56 PM EDT [facility] MPV 9.4 6.0 - 12.0 fL 04/04/2025 2:56 PM EDT [facility] Platelets 232 140 - 450 10*3/mm3 04/04/2025 2:56 PM EDT [facility] Neutrophil % 74.9 42.7 - 76.0 % 04/04/2025 2:56 PM EDT [facility] Lymphocyte % 13.1(L) 19.6 - 45.3 % 04/04/2025 2:56 PM EDT [facility] Monocyte % 11.2 5.0 - 12.0 % 04/04/2025 2:56 PM EDT [facility] Eosinophil % 0.4 0.3 - 6.2 % 04/04/2025 2:56 PM EDT [facility] Basophil % 0.2 0.0 - 1.5 % 04/04/2025 2:56 PM EDT [facility] Immature Grans % 0.2 0.0 - 0.5 % 04/04/2025 2:56 PM EDT [facility] Neutrophils, Absolute 9.52(H) 1.70 - 7.00 10*3/mm3 04/04/2025 2:56 PM EDT [facility] Lymphocytes, Absolute 1.66 0.70 - 3.10 10*3/mm3 04/04/2025 2:56 PM EDT [facility] Monocytes, Absolute 1.43(H) 0.10 - 0.90 10*3/mm3 04/04/2025 2:56 PM EDT [facility] Eosinophils, Absolute 0.05 0.00 - 0.40 10*3/mm3 04/04/2025 2:56 PM EDT [facility] Basophils, Absolute 0.03 0.00 - 0.20 10*3/mm3 04/04/2025 2:56 PM EDT [facility] Immature Grans, Absolute 0.03 0.00 - 0.05 10*3/mm3 04/04/2025 2:56 PM EDT [facility] nRBC 0.0 0.0 - 0.2 /100 WBC 04/04/2025 2:56 PM EDT [facility] Blood Venipuncture / Unknown 04/04/2025 2:47 PM EDT 04/04/2025 2:52 PM EDT us Mario Crowley DO LAB BLOOD ORDERABLES Fin al Result [facility]
[address] [place] [address], * (ABNORMAL) C-reactive Protein (04/04/2025 2:47 PM EDT) Pathologist [facility] C-Reactive Protein 8.57(H) 0.00 - 0.50 mg/dL 04/04/2025 3:26 PM EDT [facility] Blood Venipuncture / Unknown 04/04/2025 2:47 PM EDT 04/04/2025 2:52 PM EDT Mario Ortiz Keo LAB BLOOD ORDERABLES Fin al Result [facility]
[address] [place] [address], * (ABNORMAL) Sedimentation Rate (04/04/2025 2:47 PM EDT) [facility] Sed Rate 51(H) 0 - 15 mm/hr 04/04/2025 3:06 PM EDT [facility] Blood Venipuncture / Unknown 04/04/2025 2:47 PM EDT 04/04/2025 2:52 PM EDT Mario Ortiz Keo LAB BLOOD ORDERABLES Fin al Result Performing Organization Address City/[facility]/ZIP Co de Phone Number [facility]
[address] [place] [address], * Comprehensive Metabolic Panel (04/04/2025 2:47 PM EDT) [facility] Glucose 90 65 - 99 mg/dL 04/04/2025 3:26 PM EDT [facility] BUN 18.3 6.0 - 20.0 mg/dL 04/04/2025 3:26 PM EDT [facility] Creatinine 0.94 0.76 - 1.27 mg/dL 04/04/2025 3:26 PM EDT [facility] Sodium 136 136 - 145 mmol/L 04/04/2025 3:26 PM EDT [facility] Potassium 3.8 3.5 - 5.2 mmol/L 04/04/2025 3:26 PM EDT [facility] Chloride 100 98 - 107 mmol/L 04/04/2025 3:26 PM EDT [facility] CO2 25.3 22.0 - 29.0 mmol/L 04/04/2025 3:26 PM EDT [facility] Calcium 8.6 8.6 - 10.5 mg/dL 04/04/2025 3:26 PM EDT [facility] Total Protein 7.3 6.0 - 8.5 g/dL 04/04/2025 3:26 PM EDT [facility] Albumin 4.1 3.5 - 5.2 g/dL 04/04/2025 3:26 PM EDT [facility] ALT (SGPT) 26 1 - 41 U/L 04/04/2025 3:26 PM EDT [facility] AST (SGOT) 25 1 - 40 U/L 04/04/2025 3:26 PM EDT [facility] Alkaline Phosphatase 106 39 - 117 U/L 04/04/2025 3:26 PM T [facility] Total Bilirubin 1.0 0.0 - 1.2 mg/dL 04/04/2025 3:26 PM EDT [facility] Globulin 3.2 gm/dL 04/04/2025 3:26 PM T [facility] Comment:Calculated Result A/G Ratio 1.3 g/dL 04/04/2025 3:26 PM EDT [facility] BUN/Creatinine Ratio 19.5 7.0 - 25.0 04/04/2025 3:26 PM T [facility] Anion Gap 10.7 5.0 - 15.0 mmol/L 04/04/2025 3:26 PM T [facility] eGFR 102.5 >60.0 mL/min/1.7 3 04/04/2025 3:26 PM [facility] Blood Venipuncture / Unknown 04/04/2025 2:47 PM EDT 04/04/2025 2:52 PM EDT Narrative [facility] - 04/04/2025 3:26 PM EDT [...] not include race as a factor us Mario Crowley DO LAB BLOOD ORDERABLES Fin al Result [facility]
[address] [place] [address], documented in this encounter Visit Diagnoses Diagnosis [...] Electrolyte Replacement Protocol Algorithm to View Details DAPTOmycin (CUBICIN) 800 mg in sodium chloride [...] 04/06/2025 8:59 AM EDT 40 mg vancomycin (VANCOCIN) powder As Needed, Starting on Mon04/08/25 at 1555 Given 04/08/2025 3:55 PM EDT 1 g xperience advanve surgical irrigation solution As Needed, Starting on Mon04/08/25 at 1554 Given 04/08/2025 3:54 PM EDT 5 00 mL documented in this encounter Active and [...] - full anticoagulation 1111 (Given - Provider: Shilrey Hart RN)203 (Given - Provider: Alberto Dillon [...] Salazar, KELL)1943 (Given - Provider: Anahy Marcelino, SEED BUYER)2129 (Canceled Entry - Provider: Anahy Marcelino SEED BUYER - Comment: previously given) 0837 (Given - [...] RN)2026 (Given - Provider: Alberto Dillon RN) 905 (Given - Provider: Shirley Hart RN)2030 (Given [...] Hart RN) 0906 (Given - Provider: Shirley Hart RN) 100 (Given - Provider: Marguerite Wakefield, RN) ketorolac (TORADOL) injection 15 mg 15 mg, Intravenous, Once, On Mon04/09/25 at 2215, For 1 dose, Based on patient request - if ordered for moderate or severe pain, provider allows for administration of a medication prescribed for a lower pain scale. 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
--- OUTSIDE RECORDS SUMMARY | 2025-04-08 14:34 | XMS_ITS | Encounter Summary ---
Author Organization [facility] Address [address] [place] [address] Care Team Providers Care Retirement Manager Name Role Phone Provider, No Known Primary Care Provider Unavail able Reason for Visit * Auth/Cert Specialty Diagnoses / Procedures Referred By Bulmaro muniz Referred To Contact Diagnoses Right BKA infection Referral ID Status Reason Start Date Expiration Date Visits Re quested Visits Authorized [id number] 1 1 Encounter Details Date Type Department Care Team (Late st Contact Info) Description 04/08/2025 3:34 PM EDT Anesthesia Event [facility] OR [address] [place] [address] Ulises Hoffman MD [address] [place] [address] Jairo Brooks MD [address] [place] [address] Anesthesia Record Procedure Summary Procedure Name Responsible [...] drink = 0.6 oz pur e alcohol) [facility] Utilities Answer Date Recorded In the past 12 months has [employer], oil, or water [employer] threatened to shut off services in your [...] Date: 04/08/25 Room / Location: [facility] OR [address] [place] [address] [facility] OR Anesthesia Start: 1533 Anesthesia Stop: [...] ROS Abdominal Substance History - negative use 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
--- OUTSIDE RECORDS SUMMARY | 2025-05-15 08:28 | XMS_ITS | Patient Health Record ---
[facility] [address] [facility] [address] [place] [id number] Care Team Providers Care Manager Mutual Fund Name Role Phone Zeeshan Salazar Primary Care [...] W/U Status Risk Notes Problem Essential hypertension (91565774) HTN [Hypertension] (401.9) Active confirmed appears resolved Problem Hypothyroidism (69013312) Hypothyroidism NOS (244.9) Active confirmed Problem Hyperlipidemia (86560907) Hyperlipidemia (272.4) Active confirmed Problem Constipation (04249174) Constipation, unspecified constipation type (K59.00) Active confirmed Problem History of pulmonary embolism on long-term anticoagulation therapy (93896706500725426 ) Hx pulmonary embolism (Z86.711) Active confirmed Problem Long-term current use of anticoagulant (772852684) Current use of long term care phlebotomist anticoagulation (Z79.01) Active confirmed Problem Adjustment disorder with anxious mood (05582819) Adjustment disorder with anxious mood (F43.22) Active confirmed Problem History of pulmonary embolus (675971027) History of pulmonary embolus (PE) (Z86.711) Active confirmed Problem Methicillin resistant Staphylococcus aureus infection (disorder) (739983727) Infection of wound due to methicillin resistant Staphylococcus aureus (MRSA) (A49.02) Active confirmed Problem Arthritis of knee (560763046) Arthritis of knee (M17.10) Active confirmed Problem Amputated below knee (160789566) 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
--- OUTSIDE RECORDS SUMMARY | 2025-05-15 08:28 | XMS_ITS | Clinical Summary ---
Author Organization [facility] Address [address] [facility] [address] [place] [address] Phone Care Team Providers Care Mathematical Scientist Name Role Phone Unavailable Unavailable Conditions or Problems No information available. Medications No information available. Medications Administered No information available. Allergies, Adverse Reactions, Alerts No information available. Results No information available. Plan of Care No information available. Procedures No information available. Vital Signs No information available. Immunizations No information available. Advance Directives No information available.
--- OUTSIDE RECORDS SUMMARY | 2025-05-15 08:31 | XMS_ITS | Encounter Summary ---
Author Organization Healthcare Address [address] [place] [address] Care Team Providers Care Mini Bar Attendant Name Role Phone Unavailable Primary Care Provider Unavailabl e Encounter Details Date Type Department Care Team (Late st Contact Info) Description 10/19/2022 Lab Requisition [facility] [address] [place] [address] Sushil Dean MD [address] [place] [address] Encounter for general adult medical examination without [...] by MALDI tof mass spectrometry using the [employer] database and is for research use only. The organism value for this result has been updated. These results have been appended to the previously preliminary verified report. Bone Specimen from bone / Unknown 10/19/2022 5:17 PM EDT 10/19/2022 9:49 PM EDT Sushil Dean MD LAB MICROBIOLOGY - GENERAL O RDERABLES Final Result Performing Organization Address [facility] de Phone Number [facility]ALTH[facility]ARE [facility] [address] [place] [address] * Bone Culture and Gram Stain (10/19/2022 5:17 PM EDT) Culture No growth at day 4 2022 8:14 AM EDT [facility] Gram Stain Result Few Polymorphonuclear leukocytes 10/23/2022 8:14 AM EDT [facility] Gram Stain Result No organisms seen 10/23/2022 8:14 AM EDT [facility] Bone Specimen from bone / Unknown 10/19/2022 5:17 PM EDT 10/19/2022 9:49 PM EDT Sushil Dean MD LAB MICROBIOLOGY - GENERAL O RDERAADDI Final Result Performing Organization Address [facility] Phone Number [facility] [address] [place] [address] documented in this encounter Visit Diagnoses Diagnosis Encounter for general adult medical examination without abnormal findings documented in this encounter
--- OUTSIDE RECORDS SUMMARY | 2025-05-15 08:31 | XMS_ITS | Encounter Summary ---
Author Organization Healthcare Address [address] [place] [address] Care Team Providers Care Rn Primary Care Name Role Phone Unavailable Primary Care Provider Unavailabl e Encounter Details Date Type Department Care Team (Late st Contact Info) Description 07/20/2022 Lab Requisition [facility] [address] [place] [address] Sushil Dean MD [address] [place] [address] Encounter for general adult medical examination without [...]
--- OUTSIDE RECORDS SUMMARY | 2025-05-15 08:31 | XMS_ITS | Encounter Summary ---
Author Organization [facility] Address [address] [place] [address] Care Team Providers Care Scrap Baller Name Role Phone Provider, No Known Primary [...] 2:25 PM EDT Cherri Grimm RN * [place] Suicide Severity Rating Scale (Screener/Recent Self-Report) Question [...] documented as of this encounter Care Teams Scrap Baller Relationship Specialty Start Date End Date Provider, No Known [facility] [place] [address] PCP - General 05/09/23 documented as of this encounter
--- OUTSIDE RECORDS SUMMARY | 2025-05-15 08:31 | XMS_ITS | Encounter Summary ---
Author Organization Healthcare Address [address] [place] [address] Care Team Providers Care Sales Special Agent Name Role Phone Unavailable Primary Care Provider Unavailabl e Encounter Details Date Type Department Care Team (Late st Contact Info) Description 07/20/2022 Lab Requisition [facility] [address] [place] [address] Sushil Dean MD [address] [place] [address] Encounter for general adult medical examination without [...] at day 4 07/27/2022 11:32 AM EST [facility] Bone Specimen from bone / Unknown 07/20/2022 1:36 PM EST 07/20/2022 5:52 PM EST us Sushil Dean MD LAB MICROBIOLOGY - GENERAL O RDERABLES Final Result Performing Organization Address City/[facility] Co de Phone Number [facility]ALTH[facility]ARE [facility] [address] [place] [address] * Bone Culture and Gram Stain (07/20/2022 1:36 PM EST) Culture No growth at day 4 2022 9:16 AM EST [facility] Gram Stain Result Rare Polymorphonuclear leukocytes 07/24/2022 9:16 AM EST [facility] Gram Stain Result No organisms seen 07/24/2022 9:16 AM EST [facility] Bone Specimen from bone / Unknown 07/20/2022 1:36 PM EST 07/20/2022 5:52 PM EST us Sushil Dean MD LAB MICROBIOLOGY - GENERAL O RDERABLES Final Result Performing Organization Address City/[facility] Co de Phone Number [facility] [address] [place] [address] documented in this encounter Visit Diagnoses Diagnosis Encounter for general adult medical examination without abnormal findings documented in this encounter
--- OUTSIDE RECORDS SUMMARY | 2025-05-15 08:31 | XMS_ITS | Encounter Summary ---
Author Organization Healthcare Address [address] [place] [address] Care Team Providers Care Men'S Garment Fitter Name Role Phone Unavailable Primary Care Provider Unavailabl e Encounter Details Date Type Department Care Team (Late st Contact Info) Description 05/17/2023 Lab Requisition [facility] [address] [place] [address] Sushil Dean MD [address] [facility] [address] [place] [address] Encounter for general adult medical examination without [...] O RDERABLES Final Result Performing Organization Address City/[facility] Co de Phone Number [facility] [address] [place] [address] * Bone Culture and Gram Stain (05/17/2023 [...] O RDERABLES Final Result Performing Organization Address [facility] Co de Phone Number [facility] [address] [place] [address] documented in this encounter Visit Diagnoses Diagnosis Encounter for general adult medical examination without abnormal findings documented in this encounter
--- OUTSIDE RECORDS SUMMARY | 2025-05-15 08:31 | XMS_ITS | Encounter Summary ---
Author Organization Healthcare Address [address] [place] [address] Care Team Providers Care Research Instructor Name Role Phone Unavailable Primary Care Provider Unavailabl e Encounter Details Date Type Department Care Team (Late st Contact Info) Description 08/12/2022 Lab Requisition [facility] [address] [place] [address] Sushil Dean MD [address] [place] [address] Encounter for general adult medical examination without [...] has been identified using the FDA Approved Searchandise Commerceer [place] System The organism value for this [...] O ERIC Final Result Performing Organization Address City/[facility] de Phone Number HEALTH[facility]ARE [facility] [address] [place] [address] * Bone Culture and Gram Stain (08/12/2022 [...] O RDERABLES Final Result Performing Organization Address City/[facility] de Phone Number [facility] [address] [place] [address] documented in this encounter Visit Diagnoses Diagnosis Encounter for general adult medical examination without abnormal findings documented in this encounter
--- OUTSIDE RECORDS SUMMARY | 2025-05-15 08:31 | XMS_ITS | Clinical Summary ---
Author Organization [facility] Address [address] [place] [address] Care Team Providers Care Concrete Finishing Machine Operator Name Role Phone Provider, No [...] Description 04/08/2025 3:34 PM EDT Anesthesia Event [facility] OR [address] [place] [phone] Ulises Hoffman MD Wells, Jeremy B., MD 04/08/2025 2:45 PM EDT - 04/08/2025 4:04 PM EDT Surgery [facility] OR [address] [place] [phone] Sushil Dean Jr., MD LEG DEBRIDEMENT AND IRRIGATION 04/07/2025 8:36 PM EDT Anesthesia Event [facility] OR [address] [place] [phone] Luci Alonso DO 04/07/2025 6:00 PM EDT - 04/07/2025 6:52 PM EDT Surgery [facility] OR [address] [place] [phone] Sushil Dean Jr., MD LEG DEBRIDEMENT, IRRIGATION 04/04/2025 4:10 PM EDT - 04/11/2025 1:58 PM EDT Hospital Encounter [facility] [address] [place] [phone] Mario Crowley, Leonora Calderon MD Gay, Bryce, [...] drink = 0.6 oz pur e alcohol) [employer] Answer Date Recorded In the past 12 months has [employer], gas, oil, or water [employer] threatened to shut off services in your [...] this topic Medical Devices Implanted Type Area Post Acute Care Nurse Device Identifier Shelf Expiration Date Model / Serial / Lot Dev Wnd/Cls Contrl Tiss Stratafix Spiral Pls Pds Ct1 0 22cm - [id number] Implanted:Qty: 1 on 04/08/2025 by Sushil Dean Jr., MD at [facility] Right: Leg [employer] 12/07/2025 [id number] / / [id number] Procedures Procedure Name Priority [...] 3.40 - 10.80 10*3/mm3 [facility] RBC 4.70 4.14 - 5.80 10*6/mm3 04/11/2025 4:02 AM [facility] Hemoglobin 12.8(L) 13.0 - 17.7 g/dL 04/11/2025 4:02 AM [facility] Hematocrit 40.5 37.5 - 51.0 % 04/11/2025 4:02 [facility] MCV 86.2 79.0 - 97.0 fL 04/11/2025 4:02 AM [facility] MCH 27.2 26.6 - 33.0 pg 04/11/2025 4:02 AM [facility] MCHC 31.6 31.5 - 35.7 g/dL 04/11/2025 4:02 AM [facility] RDW 12.9 12.3 - 15.4 % 04/11/2025 4:02 AM [facility] RDW-SD 40.5 37.0 - 54.0 fl 04/11/2025 4:02 AM [facility] MPV 9.2 6.0 - 12.0 fL 04/11/2025 4:02 AM [facility] Platelets 267 140 - 450 10*3/mm3 04/11/2025 4:02 AM [facility] Neutrophil % 59.5 42.7 - 76.0 % 04/11/2025 4:02 AM [facility] Lymphocyte % 26.3 19.6 - 45.3 % 04/11/2025 4:02 AM [facility] Monocyte % 9.3 5.0 - 12.0 % 04/11/2025 4:02 AM [facility] Eosinophil % 4.1 0.3 - 6.2 % 04/11/2025 4:02 [facility] Basophil % 0.4 0.0 - 1.5 % 04/11/2025 4:02 AM [facility] Immature Grans % 0.4 0.0 - 0.5 % 04/11/2025 4:02 AM EDT [facility] Neutrophils, Absolute 4.69 1.70 - 7.00 10*3/mm3 04/11/2025 4:02 AM EDT [facility] Lymphocytes, Absolute 2.07 0.70 - 3.10 10*3/mm3 04/11/2025 4:02 AM EDT [facility] Monocytes, Absolute 0.73 0.10 - 0.90 10*3/mm3 04/11/2025 4:02 AM EDT [facility] Eosinophils, Absolute 0.32 0.00 - 0.40 10*3/mm3 04/11/2025 4:02 AM EDT [facility] Basophils, Absolute 0.03 0.00 - 0.20 10*3/mm3 04/11/2025 4:02 AM EDT [facility] Immature Grans, Absolute 0.03 0.00 - 0.05 10*3/mm3 04/11/2025 4:02 AM EDT [facility] nRBC 0.0 0.0 - 0.2 /100 WBC 04/11/2025 4:02 AM EDT [facility] Blood Venipuncture / Unknown 04/11/2025 3:40 AM EDT 04/11/2025 3:59 AM EDT us Sushil Dean Jr., MD LAB BLOOD ORDERABLES Fi nal Result [facility]
[address] [place] [address], * (ABNORMAL) Comprehensive Metabolic Panel (04/11/2025 3:40 AM EDT) Only the most recent of2 resultswithin the time period is included. [facility] Glucose 108(H) 65 - 99 mg/dL 04/11/2025 4:19 AM EDT [facility] BUN 12.5 6.0 - 20.0 mg/dL 04/11/2025 4:19 AM [facility] Creatinine 0.68(L) 0.76 - 1.27 mg/dL 04/11/2025 4:19 AM [facility] Sodium 140 136 - 145 mmol/L 04/11/2025 4:19 AM [facility] Potassium 3.8 3.5 - 5.2 mmol/L 04/11/2025 4:19 AM [facility] Chloride 105 98 - 107 mmol/L 04/11/2025 4:19 AM [facility] CO2 28.2 22.0 - 29.0 mmol/L 04/11/2025 4:19 AM [facility] Calcium 8.2(L) 8.6 - 10.5 mg/dL 04/11/2025 4:19 AM [facility] Total Protein 6.1 6.0 - 8.5 g/dL 04/11/2025 4:19 AM [facility] Albumin 3.1(L) 3.5 - 5.2 g/dL 04/11/2025 4:19 AM [facility] ALT (SGPT) 52(H) 1 - 41 U/L 04/11/2025 4:19 AM [facility] AST (SGOT) 40 1 - 40 U/L 04/11/2025 4:19 AM [facility] Alkaline Phosphatase 99 39 - 117 U/L 04/11/2025 4:19 AM [facility] Total Bilirubin 0.2 0.0 - 1.2 mg/dL 04/11/2025 4:19 AM [facility] Globulin 3.0 gm/dL 04/11/2025 4:19 AM [facility] Comment:Calculated Result A/G Ratio 1.0 g/dL 04/11/2025 4:19 AM [facility] BUN/Creatinine Ratio 18.4 7.0 - 25.0 04/11/2025 4:19 AM [facility] Anion Gap 6.8 5.0 - 15.0 mmol/L 04/11/2025 4:19 AM EDT [facility] eGFR 117.5 >60.0 mL/min/1.7 3 04/11/2025 4:19 AM EDT [facility] Blood Venipuncture / Unknown 04/11/2025 3:40 AM EDT 04/11/2025 3:56 AM EDT Narrative [facility] - 04/11/2025 4:19 AM EDT [...] include race as a factor Rosario Hill [facility] LAB BLOOD ORDERABLES Final Result [facility]
[address] [place] [address], * Heparin Anti-Xa (04/10/2025 3:46 AM EDT) Only the most recent of13 resultswithin the time period is included. Heparin Anti-Xa (UFH) 0.35 0.30 - 0.70 IU/ml 04/10/2025 4:23 AM EDT [facility] Blood Venipuncture / Unknown 04/10/2025 3:46 AM EDT 04/10/2025 3:53 AM EDT Larisa Hamilton [facility] LAB BLOOD ORDERABLES Final R esult [facility]
[address] [place] [address], * (ABNORMAL) Basic Metabolic Panel (04/10/2025 3:46 AM EDT) Only the most recent of6 resultswithin the time period is included. Pathologist [facility] Glucose 125(H) 65 - 99 mg/dL 04/10/2025 4:20 AM EDT [facility] BUN 15.9 6.0 - 20.0 mg/dL 04/10/2025 4:20 AM EDT [facility] Creatinine 0.77 0.76 - 1.27 mg/dL 04/10/2025 4:20 AM EDT [facility] Sodium 137 136 - 145 mmol/L 04/10/2025 4:20 AM EDT [facility] Potassium 3.9 3.5 - 5.2 mmol/L 04/10/2025 4:20 AM EDT [facility] Chloride 102 98 - 107 mmol/L 04/10/2025 4:20 AM EDT [facility] CO2 26.9 22.0 - 29.0 mmol/L 04/10/2025 4:20 AM EDT [facility] Calcium 7.9(L) 8.6 - 10.5 mg/dL 04/10/2025 4:20 AM EDT [facility] BUN/Creatinine Ratio 20.6 7.0 - 25.0 04/10/2025 4:20 AM EDT [facility] Anion Gap 8.1 5.0 - 15.0 mmol/L 04/10/2025 4:20 AM EDT [facility] eGFR 113.2 >60.0 mL/min/1.7 3 04/10/2025 4:20 AM [facility] Blood Venipuncture / Unknown 04/10/2025 3:46 AM EDT 04/10/2025 3:52 AM EDT [facility] - 04/10/2025 4:20 AM [...] t Performing Organization Address City/[facility] Co de Phone Number [facility]
[address] [place] [address], * Wound Culture - Swab, Leg, Right (04/08/2025 3:40 PM EDT) Only the most recent of3 resultswithin the time period is included. Wound Culture No growth at 3 days ALIZA 04/11/2025 10:40 AM EDT [facility] Gram Stain Few (2+) WBCs seen 04/11/2025 10:40 AM EDT [facility] Gram Stain No organisms seen 04/11/2025 10:40 AM EDT [facility] Swab Structure of right lower limb / Unknown 04/08/2025 3:40 PM EDT 04/08/2025 8:05 PM EDT Sushil Dean Jr., MD MICROBIOLOGY - GENERAL ORDERABLES Final Result Performing Organization Address [facility] Co de Phone Number [facility]
[address] [place] [address], [facility]
[address] [place] [address], * Anaerobic Culture - Swab, Leg, Right (04/08/2025 3:40 PM EDT) Only the most recent of4 resultswithin the time period is included. Anaerobic Culture No anaerobes isolated at 5 days ALIZA 04/13/2025 7:24 AM EDT [facility] Swab Structure of right lower limb / Unknown 04/08/2025 3:40 PM EDT 04/08/2025 8:05 PM EDT Sushil Dean Jr., MD MICROBIOLOGY - GENERAL ORDERABLES Final Result Performing Organization Address City/[facility] Co de Phone Number [facility]
[address] [place] [address], * Scan Slide (04/08/2025 8:41 AM EDT) RBC Morphology Normal Normal 04/08/2025 11:02 AM EDT [facility] WBC Morphology Normal Normal 04/08/2025 11:02 AM EDT [facility] Platelet Estimate Adequate Normal 04/08/2025 11:02 AM EDT [facility] Clumped Platelets Present None Seen 04/08/2025 11:02 AM EDT [facility] Blood Venipuncture / Unknown 04/08/2025 8:41 AM EDT 04/08/2025 9:10 AM EDT Una Perla PharmD LAB BLOOD ORDERABLES Final R esult Performing Organization Address [facility] Co de Phone Number [facility]
[address] [place] [address], * FL C Arm During Surgery (04/07/2025 9:32 PM EDT) Narrative SYSTEMGENERATED, DOCUMENTATION - 04/07/2025 9:38 PM EDT This procedure was auto-finalized with no dictation required. Sushil Dean Jr., MD IMG FLUOROSCOPY ORDERAB LES Final Result * Tissue / Bone Culture - Tissue, Leg, Right (04/07/2025 9:13 PM EDT) Tissue Culture No growth at 3 days ALIZA 04/11/2025 10:36 AM EDT [facility] Gram Stain Rare (1+) WBCs seen 04/11/2025 10:36 AM EDT [facility] Gram Stain No organisms seen 04/11/2025 10:36 AM EDT [facility] Tissue Structure of right lower limb / Unknown 04/07/2025 9:13 PM EDT 04/08/2025 4:54 AM EDT us Sushil Dean Jr., MD MICROBIOLOGY - GENERAL ORDERABLES Final Result [facility]
[address] [place] [address], [place] [phone] [facility]
[address] [place] [address], [place] [phone] * BH AN ETT AIRWAY (04/07/2025 8:44 [...] [place] 04/07/2025 9:58 AM EDT Workstation ID: [id number] Narrative 04/07/2025 9:58 AM EDT MRI TIBIA [...] [place] 04/07/2025 9:58 AM EDT Workstation ID: [id number] us Sushil Dean Jr., MD IM MRI ORDERABLES Mary Beth l Result * Potassium (04/06/2025 7:16 PM EDT) Potassium 4.0 3.5 - 5.2 mmol/L 04/06/2025 7:53 PM EDT [facility] Blood Venipuncture / Unknown 04/06/2025 7:16 PM EDT 04/06/2025 7:35 PM EDT Jason Álvarez DO LAB BLOOD ORDERABLES Final Resul t Performing Organization Address City/[facility]/ZIP Co de Phone Number [facility]
[address] [place] [address], * CK (04/05/2025 12:15 PM EDT) Creatine Kinase 140 20 - 200 U/L 04/05/2025 1:31 PM EDT [facility] Blood Venipuncture / Unknown 04/05/2025 12:15 PM EDT 04/05/2025 1:03 PM EDT Carlton Mead MD LAB BLOOD ORDERABLES Final R esult Performing Organization Address [facility] Co de Phone Number [facility]
[address] [place] [address], * (ABNORMAL) aPTT (04/05/2025 3:54 AM EDT) Only the most recent of2 resultswithin the time period is included. PTT 35.3(L) 60.0 - 90.0 seconds 04/05/2025 4:31 AM EDT [facility] Blood Venipuncture / Unknown 04/05/2025 3:54 AM EDT 04/05/2025 4:15 AM EDT Narrative [facility] - 04/05/2025 4:31 AM EDT PTT = The equivalent PTT values for the therapeutic range of heparin levels at 0.3 to 0.5 U/ml are 60 to 70 seconds. Una LundbergD LAB BLOOD ORDERABLES Final R esult Performing Organization Address [facility] Co de Phone Number [facility]
[address] [place] [address], * (ABNORMAL) Protime-INR (04/05/2025 12:18 AM EDT) [facility] Protime 15.9(H) 12.2 - 15.3 Seconds 04/05/2025 12:53 AM EDT [facility] INR 1.19(H) 0.89 - 1.12 04/05/2025 12:53 AM EDT [facility] Blood Venipuncture / Unknown 04/05/2025 12:18 AM EDT 04/05/2025 12:37 AM EDT Una Perla PharmD LAB BLOOD ORDERABLES Final R esult Performing Organization Address [facility] Co de Phone Number [facility]
[address] [place] [address], * POC Creatinine (04/04/2025 2:49 PM EDT) [facility] Creatinine 1.10 0.60 - 1.30 mg/dL 04/07/2025 7:14 PM EDT [facility] Comment:Serial Number: [id number]: [id number] Venous Blood 04/04/2025 2:49 PM EDT 04/07/2025 7:14 PM EDT Jason Álvarez DO POINT OF CARE TEST ORDERABLES Fi nal Result Performing Organization Address [facility] Co de Phone Number [facility]
[address] [place] [address], * (ABNORMAL) Sedimentation Rate (04/04/2025 2:47 PM EDT) [facility] Sed Rate 51(H) 0 - 15 mm/hr 04/04/2025 3:06 PM EDT [facility] Blood Venipuncture / Unknown 04/04/2025 2:47 PM EDT 04/04/2025 2:52 PM EDT Mario Ortiz [facility] LAB BLOOD ORDERABLES Fin al Result Performing Organization Address City/[facility]/ZIP Co de Phone Number [facility]
[address] [place] [address], * (ABNORMAL) C-reactive Protein (04/04/2025 2:47 PM EDT) C-Reactive Protein 8.57(H) 0.00 - 0.50 mg/dL 04/04/2025 3:26 PM EDT [facility] Blood Venipuncture / Unknown 04/04/2025 2:47 PM EDT 04/04/2025 2:52 PM EDT [facility]LOOD ORDERABLES Fin al Result Performing Organization Address City/[facility] de Phone Number [facility]
[address] [place] [address], from Last 3 Months Additional Health Concerns [...] Of Support Discussed With: Patient Care Teams Concrete Finishing Machine Operator Relationship Specialty Start Date End Date Provider, [place] [address] PCP - General 05/09/23
--- OUTSIDE RECORDS SUMMARY | 2025-05-15 08:31 | XMS_ITS | Encounter Summary ---
Author Organization Healthcare Address [address] [place] [address] Care Team Providers Care Upper Extremity Surgeon Name Role Phone Unavailable Primary Care Provider Unavailabl e Encounter Details Date Type Department Care Team (Late st Contact Info) Description 05/13/2023 Lab Requisition [facility] [address] [place] [address] Sushil Dean MD [address] [facility] [place] [address] Encounter for general adult medical examination without [...] Final Result Performing Organization Address [facility] Co de Phone Number [facility] [address] [place] [address] * Anaerobic Culture (05/13/2023 9:17 AM EDT) Culture No growth at day 4 05/20/2023 10:35 AM EST [facility] Bone 05/13/2023 9:17 AM EDT 05/13/2023 1:25 PM EDT us Sushil Dean MD LAB MICROBIOLOGY - GENERAL O RDERABLES Final Result Performing Organization Address [facility] de Phone Number [facility] [address] [place] [address] * Bone Culture and Gram Stain (05/13/2023 [...] Final Result Performing Organization Address [facility] de Phone Number [facility] [address] [place] [address] documented in this encounter Visit Diagnoses Diagnosis Encounter for general adult medical examination without abnormal findings documented in this encounter
--- OUTSIDE RECORDS SUMMARY | 2025-05-15 08:31 | XMS_ITS | Encounter Summary ---
Author Organization [facility] Address [address] [place] [address] Care Team Providers Care Insole Coverer Name Role Phone Unavailable Primary Care Provider Unavailabl e Encounter Details Date Type Department Care Team (Late st Contact Info) Description 10/03/2022 Lab Requisition [facility] Lab [address] [place] [address] Dalila Cox MD [address] [place], [place] [id number] Encounter for general adult medical examination without [...] Culture Neelima albicans(A) 10/05/2022 11:58 AM EDT [facility] Comment: This result was determined by MALDI tof Mass spectrometry. This assay was developed and its performance characteristics determined by [facility] as appropriate for clinical purposes. [...] Edited Result - Final [facility] [address] [place] [address] documented in this encounter Visit Diagnoses Diagnosis Encounter for general adult medical examination without abnormal findings documented in this encounter
--- OUTSIDE RECORDS SUMMARY | 2025-05-15 08:31 | XMS_ITS | Encounter Summary ---
Author Organization Healthcare Address [address] [place] [address] Care Team Providers Care Architectural Intern Name Role Phone Unavailable Primary Care Provider Unavailabl e Encounter Details Date Type Department Care Team (Late st Contact Info) Description 10/01/2022 Lab Requisition [facility] [address] [place] [address] Sushil Dean MD [address] [facility] [place] [address] Encounter for general adult medical examination without [...] has been identified using the FDA Approved Scancellyper [place] System The organism value for this [...] EDT Refer to culture [id number] FOR SUSCEPTIBILITIES ON NEELIMA ALBICANS us Sushil Dean MD LAB MICROBIOLOGY - GENERAL O RDERABLES Final Result [facility] [address] [place] [address] documented in this encounter Visit Diagnoses Diagnosis Encounter for general adult medical examination without abnormal findings documented in this encounter
--- OUTSIDE RECORDS SUMMARY | 2025-05-15 08:32 | XMS_ITS | Clinical Summary ---
Author Organization Healthcare Address [address] [place] [address] Care Team Providers Care Management Internship Name Role Phone Unavailable Primary Care Provider [...]
[2025-05-15] MEDS: SODIUM CHLORIDE 0.9% 10ML FLUSH SYRINGE 10 ML IV (08:34)
[2025-05-15 08:39] VITALS: BP 108/69; PULSE 70; RESP 18; TEMP 36.4; O2SAT 94
[2025-05-15] MEDS: DAPTOmycin 1,000 MG in 0.9 % SODIUM CHLORIDE 50 ML 100 MG IV (08:39)
[2025-05-15 09:20] VITALS: BP 119/87; PULSE 72; RESP 20; O2SAT 94
== END 2025-05-15 23:59 | disposition home or self-care (01) ==
LOC: INF 08:25
PROVIDERS: PCP Nurse Practitioner Family; Visit Provider Internal Medicine Infectious Disease
DX: L03.115 Cellulitis of right lower limb (principal); L02.415 Cutaneous abscess of right lower limb; L30.9 Dermatitis, unspecified; D68.2 Hereditary deficiency of other clotting factors; I10 Essential (primary) hypertension; E78.5 Hyperlipidemia, unspecified; F39 Unspecified mood [affective] disorder
CPT/HCPCS: 96365; J0878

== ENCOUNTER 2025-05-16 08:33 | Outpatient (CLI) | payer MEDICARE, SELFPAY ==
--- OUTSIDE RECORDS SUMMARY | 2023-12-12 04:00 | XMS_ITS ---
Author Organization [facility] Address 1210 [facility] 36 [facility] 2C YVON Sykes [phone] Care Team Providers Care Title Inspector Name Role Phone Zeeshan Salazar Primary Care Provider [phone] Macario Burkett [phone] REASON FOR VISIT 6 Month Check Up Encounters Encounter Location Date Provider Diagnosis [facility] 1210 [facility] [address] [place] Sy[place] [phone] 12/12/2023 Macario Burkett Plan Of Treatment No Information Progress Notes * Won MEDRANO ZeeshanDOB: [birth year] (44 yo M)Acc No.[id number]:12/12/2023 Progress Notes Patient: Won SPANN Provider: Colleen Burkett M.D. :1980 A ge:43 Y S ex:Male Date:12/12/2023 Address:[address] [place] [address] Onel THACKER [id number] Pcp:Zeeshan Salazar Subjective: * Chief Complaints: * 1 . 6 Month Check Up. * Medical History: Objective: * Vitals: Assessment: Plan: * Treatment: * Images: Billing Information: * Visit Code: * Procedure Codes: * Electronic signature of Micaela Burkett MD on 05/16/2025 at 08:48 AM EST Sign off status: Pending * Provider: Colleen Burkett M.D. Date: 12/12/2023 Generated for Nany jorgensen/Elaine/Lisbethitting on: 07/16/2024 08:48 AM EST
--- OUTSIDE RECORDS SUMMARY | 2025-04-04 15:10 | XMS_ITS | Encounter Summary ---
Author Organization [facility] Address [address] [place] [address] Care Team Providers Care Table Machine Operator Name Role Phone Provider, No Known Primary Care Provider Unavail able Reason for Visit * Reason Comments Leg Swelling * Auth/Cert Specialty Diagnoses / Procedures Referred By Contlevy t Referred To Contact Diagnoses Right BKA infection Referral ID Status Reason Start Date Expiration Date Visits Re quested Visits Authorized [id number] 1 1 Encounter Details Date Type Department Care Team (Late st Contact Info) Description 04/04/2025 4:10 PM EDT - 04/11/2025 1:58 PM EDT Hospital Encounter [address] [place] [address] Mario Crowley, [address] [place] [address] Leonora Shepherd MD [address] [address] Jason Álvarez DO [address] [address] Jadyn Richardson DO [address] [address] Cellulitis of right lower extremity (Primary Dx); Below-knee amputation of right lower extremity, initial encounter; Right BKA infection Discharge Disposition: Home or Self Care Social History Tobacco Use Types Packs/Day Years Used Date Smoking Tobacco: Never Smokeless Tobacco: Never Tobacco Cessation:Counseling Given: Not Answered Alcohol Use Standard Drinks/Week Comments Not Currently 0 (1 standard drink = 0.6 oz pur e alcohol) [facility] Utilities Answer Date Recorded In the past 12 months has th e [email or web address], gas, oil, or water company threatened to [...] or training? Not on file Preferred Language Estonian 04/07/2025 Sex and Gender Information Value Date [...] 2:25 PM EDT Cherri Grimm RN * [place]ley Suicide Severity Rating Scale (Screener/Recent Self-Report) Question [...] from the original note were not included. [facility] Medicine Services DISCHARGE SUMMARY Patient [...] Date/Time Wound Culture - Swab, Leg, Right [[id number]] (Abnormal) (Susceptibility) Collected: 04/07/252106 Lab Status: Final [...] Units Date/Time FL C Arm During Surgery [[id number]] Resulted: 04/07/252137 Updated: 04/07/252137 Narrative: This procedure was auto-finalized with no dictation required. MRI Tibia Fibula Right With & Without Contrast [[id number]] Collected: 04/07/25 0938 Updated: 04/07/25 1001 Narrative: [...] Buenrostro 04/07/2025 9:58 AM EDT Workstation ID: [id number] MRI Tibia Fibula Right With & Without Contrast [[id number]] Collected: 04/04/252256 Updated: 04/04/252302 Narrative: MRI TIBIA [...] represent a small area of phlegmonous change ([id number] image 10) measuring approximately 1.6 cm which [...] MD 04/04/2025 11:00 PM EDT Workstation ID: [id number] Pending Labs Order Current Status Fungus Culture [...] FLOMAX 1 capsule, Nightly Stop These Medications [facility] Digestive [facility] capsule doxycycline 100 MG tablet Commonly [...] Male) Date of 1980 Social Security Number [id number] [place] [id number] Muslim Unknown Marital Status Unknown Admission Date 04/04/2025 Admission Type Emergency Admitting Provider Jadyn Richardson DO Attending Provider Jadyn Richardson DO Department, Room/Bed [address], S565/1 Discharge Date Discharge Disposition Discharge [...] Group [place] [id number] Payor Plan Address Payor Plan Phone Number Payor Plan Fax Number Effective Dates [employer] [address] [address] 08/10/2023 - None Entered [place] [address] Subscriber Name Subscriber Date Member ID WON DENNIS 1980 [id number] Emergency Contacts Educational Institution President (Rel.) Home Phone Work Phone Mobile Phone Avril Dennis (Spouse) -- -- [phone] LewRobert (Relative) -- -- [phone] [place] [facility] [address] Patient: ROOM: [facility] Won Dennis [address] [facility] [address] : 1980 SSN: [id number] Sex: M PCP: Provider, No Known Emergency Contact Information Name Relation Home Work Mobile Avril Dennis Spouse [phone] Other Contacts Name Relation Home Work Mobile Robert Hackett Relative [phone] INSURANCE PAYOR [employer]AN [employer] # SUBSCRIBER ID Primary: Secondary: MEDICARE [place]ICAID [place] [id number] Admitting Diagnosis: 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] Order Date: Apr 09, 2025 Case Management Public Policy Coordinator Consult (Order ID: [id number]) Diagnosis: Priority: Routine Expected Date: Expiration Date: Interval: Once Count: Comments: Outpatient orders: 1. Outpatient intravenous antibiotic therapy: Daptomycin 800 mg IV daily to be supplied by [facility] 2. Home health to perform [...] INFECTIOUS DISEASE Progress Note Won Dennis 1980 [id number] Date of Consult: 04/10/2025 Admission Date: 04/04/2025 [...] which prompted him to seek treatment at [facility]. He is known to Dr. Dean. [...] wound 05/09/25. HDS, on Heparin gtt. Currently [facility] has been asked to manage the [...] 04/08/2025 Procedure: LEG DEBRIDEMENT AND IRRIGATION; Surgeon: Ssuhil Dean Jr., MD; Location: [facility];Service: Orthopedics; [...] Jr., MD, 20 mg at 04/09/25906 heparin 95930 units/250 mL (100 units/mL) in 0.45 % [...] Units Date/Time FL C Arm During Surgery [[id number]] Resulted: 04/07/252137 Updated: 04/07/252137 Narrative: This procedure was auto-finalized with no dictation required. MRI Tibia Fibula Right With & Without Contrast [[id number]] Collected: 04/07/25 0938 Updated: 04/07/25 1001 Narrative: [...] Chitra 04/07/2025 9:58 AM EDT Workstation ID: [id number] Impression: Recurrent Right BKA stump abscess/cellulitis- this [...] discussed his disposition with the pharmacist at [facility] today. I will sign off Outpatient orders: 1. Outpatient intravenous antibiotic therapy: Daptomycin 800 mg IV daily to be supplied by [facility] 2. Home health to perform weekly PICC [...] Time: 04/10/251323 Signed Expand All Collapse All [facility] Medicine Services PROGRESS NOTE Patient [...] Date/Time Wound Culture - Swab, Leg, Right [[id number]] (Abnormal) (Susceptibility) Collected: 04/07/252106 Lab Status: Final [...] Row Name 04/06/25 1143 Sit-Stand Transfer Sit-Stand [place] (Transfers) modified independence -LM Comment, (Sit-Stand Transfer) Pt stood from recliner. Not holding onto walker, pt able to pull his pants up while balancing on his one leg. -LM Row Name 04/06/25 1143 Gait/Stairs (Locomotion) [place] Level (Gait) modified independence -LM Distance in [...] Nurse Physical Therapy Education Title: PT OT CABLE SPLICER APPRENTICE Therapies (Done) Topic: Physical Therapy (Done) Point: [...] Description Service Date Service Provider Modifiers Qty [id number] PT EVAL LOW COMPLEXITY 3 04/06/2025 Susan [...] mg Daily 04/05/2025 -- Route: Oral heparin 90287 units/250 mL (100 units/mL) in 0.45 % [...] -- Admin Instructions: Open Order & Select [facility] Electrolyte Replacement Protocol Algorithm to View [...] 22 [facility] [address] [facility], [address] [facility], [address] Please schedule at [phone] VONDA Garcia 04/11/25 08:32 EDT Cosigned by Sushil Dean Jr., MD at 04/19/2025 10:33 AM EDT Associated attestation - Sushil Dean Jr., MD - 04/19/2025 10:33 AM EDT I have reviewed this documentation and agree. * Rosario Hill APRN - 04/10/2025 1:24 PM EDT Images from the original note were not included. [facility] Medicine Services PROGRESS NOTE Patient [...] Date/Time Wound Culture - Swab, Leg, Right [[id number]] (Abnormal) (Susceptibility) Collected: 04/07/252106 Lab Status: Final [...] mg Daily 04/05/2025 -- Route: Oral heparin 18316 units/250 mL (100 units/mL) in 0.45 % [...] -- Admin Instructions: Open Order & Select [facility] Electrolyte Replacement Protocol Algorithm to View [...] -- Admin Instructions: Open Order & Select [facility] Electrolyte Replacement Protocol Algorithm to View [...] -- Admin Instructions: Open Order & Select [facility] Electrolyte Replacement Protocol Algorithm to View [...] 22 [facility] [address] [facility], [address] [facility], [address] Please schedule at [phone] VONDA Garcia 04/10/25 09:01 EDT Cosigned by Sushil Dean Jr., MD at 04/19/2025 10:33 AM EDT Associated attestation - Sushil Dean Jr., MD - 04/19/2025 10:33 AM EDT I have reviewed this documentation and agree. * Carlton Mead MD - 04/10/2025 7:38 AM EDT Images from the original note were not included. INFECTIOUS DISEASE Progress Note Won Dennis 1980 [id number] Date of Consult: 04/10/2025 Admission Date: 04/04/2025 [...] which prompted him to seek treatment at [facility]. He is known to Dr. Dean. [...] wound 05/09/25. HDS, on Heparin gtt. Currently [facility] has been asked to manage the [...] Jr., MD, 20 mg at 04/09/25906 heparin 21592 units/250 mL (100 units/mL) in 0.45 % [...] vancomycin 2750 mg/500 mL 0.9% NS IVPB ([facility]) Ordering Provider: Mario Crowley, DO 20 [...] Units Date/Time FL C Arm During Surgery [[id number]] Resulted: 04/07/252137 Updated: 04/07/252137 Narrative: This procedure was auto-finalized with no dictation required. MRI Tibia Fibula Right With & Without Contrast [[id number]] Collected: 04/07/25 0938 Updated: 04/07/25 1001 Narrative: [...] Buenrostro 04/07/2025 9:58 AM EDT Workstation ID: [id number] Impression: Recurrent Right BKA stump abscess/cellulitis- this [...] discussed his disposition with the pharmacist at [facility] today. I will sign off Outpatient orders: 1. Outpatient intravenous antibiotic therapy: Daptomycin 800 mg IV daily to be supplied by [facility] 2. Home health to perform weekly PICC [...] MD 04/10/2025 07:38 EDT * Yaya Hamiltonn, [facility] - 04/10/2025 7:17 AM EDT Pharmacy to [...] from the original note were not included. [facility] Medicine Services PROGRESS NOTE Patient [...] Date/Time Wound Culture - Swab, Leg, Right [[id number]] (Abnormal) Collected: 04/07/252106 Lab Status: Preliminary result [...] Jason DO Preeti 04/09/25 * Larisa Hamilton [facility] - 04/09/2025 11:36 AM EDT Pharmacy to [...] mg Daily 04/05/2025 -- Route: Oral heparin 29627 units/250 mL (100 units/mL) in 0.45 % [...] -- Admin Instructions: Open Order & Select [facility] Electrolyte Replacement Protocol Algorithm to View [...] -- Admin Instructions: Open Order & Select [facility] Electrolyte Replacement Protocol Algorithm to View [...] -- Admin Instructions: Open Order & Select [facility] Electrolyte Replacement Protocol Algorithm to View [...] radiographs [facility] [address] [facility], [address] [facility], [address] Please schedule at [phone] VONDA Garcia 04/09/25 09:18 EDT Cosigned by Sushil Dean Jr., MD at 04/19/2025 10:33 AM EDT Associated attestation - Sushil Dean Jr., MD - 04/19/2025 10:33 AM EDT I have reviewed this documentation and agree. * Carlton Mead MD - 04/09/2025 8:25 AM EDT Images from the original note were not included. INFECTIOUS DISEASE Progress Note Won Dennis 1980 [id number] Date of Consult: 04/09/2025 Admission Date: 04/04/2025 [...] which prompted him to seek treatment at [facility]. He is known to Dr. Dean. [...] wound 05/09/25. HDS, on Heparin gtt. Currently [facility] has been asked to manage the [...] IRRIGATION; Surgeon: Sushil Dean Jr., MD; Location: [facility]; Service: Orthopedics; Laterality: Right; PLACEMENT OF WOUND VAC Right 04/07/2025 Procedure: WOUND VACUUM ASSISTED CLOSURE; Surgeon: Sushil Dean Jr., MD; Location: [facility]; Service: Orthopedics; Laterality: Right; History [...] % 2 each, 2 Swab, Nasal, Once, Ssuhil Dean Jr., MD ferrous sulfate tablet 325 mg, 325 mg, Oral, BID, Sushil Dean Jr., MD, 325 mg at 04/08/252006 furosemide (LASIX) tablet 20 mg, 20 mg, Oral, Daily, Sushil Dean Jr., MD, 20 mg at 04/08/25 0800 heparin 05764 units/250 mL (100 units/mL) in 0.45 % [...] Units Date/Time FL C Arm During Surgery [[id number]] Resulted: 04/07/252137 Updated: 04/07/252137 Narrative: This procedure was auto-finalized with no dictation required. MRI Tibia Fibula Right With & Without Contrast [[id number]] Collected: 04/07/2538 Updated: 04/07/25 1001 Narrative: MRI [...] Buenrostro 04/07/2025 9:58 AM EDT Workstation ID: [id number] Impression: Recurrent Right BKA stump abscess/cellulitis- this [...] mg IV daily to be supplied by [facility] 2. Home health to perform [...] from the original note were not included. [facility] Medicine Services PROGRESS NOTE Patient [...] Buenrostro 04/07/2025 9:58 AM EDT Workstation ID: [id number] I have personally reviewed the therapy plans: [...] Jason Álvarez DO 04/08/25 * Larisa Hamilton [facility] - 04/08/2025 11:48 AM EDT Pharmacy to [...] -- Admin Instructions: Open Order & Select [facility] Electrolyte Replacement Protocol Algorithm to View [...] mg Daily 04/05/2025 -- Route: Oral heparin 57754 units/250 mL (100 units/mL) in 0.45 % [...] -- Admin Instructions: Open Order & Select [facility] Electrolyte Replacement Protocol Algorithm to View [...] -- Admin Instructions: Open Order & Select [facility] Electrolyte Replacement Protocol Algorithm to View [...] -- Admin Instructions: Open Order & Select [facility] Electrolyte Replacement Protocol Algorithm to View [...] INFECTIOUS DISEASE Progress Note Won Dennis 1980 [id number] Date of Consult: 04/08/2025 Admission Date: 04/04/2025 [...] which prompted him to seek treatment at [facility]. He is known to Dr. Dean. [...] wound 05/09/25. HDS, on Heparin gtt. Currently [facility] has been asked to manage the [...] IRRIGATION; Surgeon: Sushil Dean Jr., MD; Location: [facility]; Service: Orthopedics; Laterality: Right; PLACEMENT OF WOUND VAC Right 04/07/2025 Procedure: WOUND VACUUM ASSISTED CLOSURE; Surgeon: Sushil Dean Jr., MD; Location: [facility]; Service: Orthopedics; Laterality: Right; History [...] IVPB, 8 mg/kg (Adjusted), Intravenous, Q24H, Sushil eDan Jr., MD, Last Rate: 100 mL/hr at [...] Jr., MD, 20 mg at 04/07/25950 heparin 73165 units/250 mL (100 units/mL) in 0.45 % [...] 4 mg, 4 mg, Translingual, Q6H PRN, Suhsil Dean Jr., MD, 4 mg at 04/06/25 [...] Units Date/Time FL C Arm During Surgery [[id number]] Resulted: 04/07/252137 Updated: 04/07/252137 Narrative: This procedure was auto-finalized with no dictation required. MRI Tibia Fibula Right With & Without Contrast [[id number]] Collected: 04/07/2538 Updated: 04/07/25 1001 Narrative: MRI [...] Buenrostro 04/07/2025 9:58 AM EDT Workstation ID: [id number] Impression: 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 (Treated by ID in [place] Dr. Harris). Dr. Torres treated him with [...] from the original note were not included. [facility] Medicine Services PROGRESS NOTE Patient [...] Buenrostro 04/07/2025 9:58 AM EDT Workstation ID: [id number] I have personally reviewed the therapy plans: [...] Jason Álvarez DO 04/07/25 * Larisa Hamilton [facility] - 04/07/2025 11:56 AM EDT Pharmacy to [...] INFECTIOUS DISEASE Progress Note Won Dennis 1980 [id number] Date of Consult: 04/07/2025 Admission Date: 04/04/2025 [...] which prompted him to seek treatment at [facility]. He is known to Dr. Dean. [...] wound 05/09/25. HDS, on Heparin gtt. Currently [facility] has been asked to manage the [...] mg, 10 mg, Rectal, Daily PRN, Leonora Shepehrd MD budesonide-formoterol (SYMBICORT) 160-4.5 MCG/ACT inhaler 2 puff, 2 puff, Inhalation, BID - RT, Jason Álvarez DO, 2 puff at 04/06/25 190 Calcium Replacement - Follow Nurse / BPA Driven Protocol, , Not Applicable, PRN, Leonoar Shepherd MD cefTRIAXone (ROCEPHIN) 2,000 mg in sodium chloride 0.9 % 100 mL MBP, 2,000 mg, Intravenous, Q24H, Carlton Mead MD, Last Rate: 200 mL/hr at 04/06/252100, 2,000 mg at 04/06/252100 clotrimazole-betamethasone (LOTRISONE) 1-0.05 % cream 1 Application, 1 Application, Topical, Q12H, Ayah Valentin, DEPUTY FIRE CHIEF, 1 Application at 04/06/252101 DAPTOmycin (CUBICIN) 800 [...] Shepherd MD, 20 mg at 04/06/25899 heparin 34940 units/250 mL (100 units/mL) in 0.45 % NaCl infusion, 18 Units/kg/hr, Intravenous, Titrated, Cherri Beatty, [facility], Last Rate: 24.1 mL/hr at 04/07/258, 18 [...] With & Without Contrast - In process [[id number]] Resulted: 04/07/25828 Updated: 04/07/25828 This result has not been signed. Information might be incomplete. 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 (Treated by ID in [place] Dr. Harris). Dr. Torres treated him with [...] mg Daily 04/05/2025 -- Route: Oral heparin 79005 units/250 mL (100 units/mL) in 0.45 % [...] -- Admin Instructions: Open Order & Select [facility] Electrolyte Replacement Protocol Algorithm to View [...] -- Admin Instructions: Open Order & Select [facility] Electrolyte Replacement Protocol Algorithm to View [...] MD 04/07/25 06:07 EDT * Cherri Beatty [facility] - 04/06/2025 1:47 PM EDT Pharmacy to [...] from the original note were not included. [facility] Medicine Services PROGRESS NOTE Patient [...] MD 04/04/2025 11:00 PM EDT Workstation ID: [id number] I have personally reviewed the therapy plans: [...] mg Daily 04/05/2025 -- Route: Oral heparin 76254 units/250 mL (100 units/mL) in 0.45 % [...] -- Admin Instructions: Open Order & Select [facility] Electrolyte Replacement Protocol Algorithm to View [...] INFECTIOUS DISEASE follow up. Won Dennis 1980 [id number] Date of Consult: 04/06/2025 Admission Date: 04/04/2025 [...] which prompted him to seek treatment at [facility]. He is known to Dr. Dean. [...] wound 05/09/25. HDS, on Heparin gtt. Currently [facility] has been asked to manage the [...] Application, 1 Application, Topical, Q12H, Ayah Valentin, DEPUTY FIRE CHIEF, 1 Application at 04/06/25 0859 DAPTOmycin (CUBICIN) [...] MD, 20 mg at 04/06/25 0900 heparin 74514 units/250 mL (100 units/mL) in 0.45 % NaCl infusion, 18 Units/kg/hr, Intravenous, Titrated, Cherri Beatty [facility], Last Rate: 24.1 mL/hr at 04/06/25 1420, [...] Tibia Fibula Right With & Without Contrast [[id number]] Collected: 04/04/252256 Updated: 04/04/252302 Narrative: MRI TIBIA [...] represent a small area of phlegmonous change ([id number] image 10) measuring approximately 1.6 cm which [...] MD 04/04/2025 11:00 PM EDT Workstation ID: [id number] Impression: 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 (Treated by ID in [place] Dr. Harris). Dr. Torres treated him with [...] MD 04/06/2025 16:00 EDT * Cherri Beatty, [facility] - 04/05/2025 3:01 PM EDT Pharmacy to [...] from the original note were not included. [facility] Medicine Services PROGRESS NOTE Patient [...] MD 04/04/2025 11:00 PM EDT Workstation ID: [id number] I have personally reviewed the therapy plans: [...] from the original note were not included. [facility] Medicine Services HISTORY AND PHYSICAL [...] MD 04/04/2025 11:00 PM EDT Workstation ID: [id number] Assessment & Plan Assessment & Plan Won [...] 4FR PICC placed by Rhoda Bonner RN [facility], tip verified by 3CG see LDA. * Sushil Dean Jr., MD - 04/05/2025 8:07 AM EDTAssociated Order(s): IP CONSULT TO ORTHOPEDIC SURGERY [facility], [facility] [address] [place] [address] Orthopedic Consult Patient: Won Dennis Date of Admission: 04/04/2025 4:10 PM Date of : 1980 Attending Physician: Jason Álvarez DO Consulting Physician: Sushil Dean Jr, MD Chief Complaint: 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 male admitted to [facility] with 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]. He has [...] was evaluated in the emergency department in [place], was discharged with instructions for follow-up. He [...] tablet by mouth Daily. 04/03/2025 Morning Lactobacillus-Inulin ([facility] Extend [facility]) capsule Take 200 mg by mouth Daily. [...] MD 04/04/2025 11:00 PM EDT Workstation ID: [id number] Assessment: Right BKA infection 44-year-old male with [...] DISEASE CONSULT/INITIAL HOSPITAL VISIT Won Dennis 1980 [id number] Date of Consult: 04/05/2025 Admission Date: 04/04/2025 [...] which prompted him to seek treatment at [facility]. He is known to Dr. Dean. [...] wound 05/09/25. HDS, on Heparin gtt. Currently [facility] has been asked to manage the [...] Leonora Shepherd MD, 40 mg at 04/04/25 8419 sennosides-docusate (PERICOLACE) 8.6-50 MG per tablet 2 [...] MD, 20 mg at 04/05/25 0916 heparin 10517 units/250 mL (100 units/mL) in 0.45 % [...] Tibia Fibula Right With & Without Contrast [[id number]] Collected: 04/04/252256 Updated: 04/04/252302 Narrative: MRI TIBIA [...] represent a small area of phlegmonous change ([id number] image 10) measuring approximately 1.6 cm which [...] MD 04/04/2025 11:00 PM EDT Workstation ID: [id number] Impression: 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 (Treated by ID in [place] Dr. Harris). Dr. Torres treated him with [...] Jr., MD - 04/08/2025 3:51 PM EDT [facility] OPERATIVE REPORT PATIENT NAME: Won Dennis DATE OF : 1980 PREOP DIAGNOSIS: Right Right below-knee amputation infection POSTOP DIAGNOSIS: Same. PROCEDURE: Right Right 24030: Secondary closure below-knee amputation SURGEON: Sushil Dean MD OPERATIVE TEAM: Aircraft Powerplant Repairer: Susi Grullon RN Scrub Person: Mary Pardees Scrub Person Extra: Hortencia Toribio Other: Katt Gotti RN; Charis Neville RN ANESTHETIST: Anesthesiologist: Ulises Hoffman MD ARC WELDER APPRENTICE: Stan Casillas CRNA Student Nurse Lens Inserter: Karol Albert SRNA ANESTHESIA: Choice ESTIMATED BLOOD [...] CULTURE (Canceled) Sushil Dean Jr., MD 04/08/25 4698 Description: RIGHT LEG DEEP WOUND FOR CULTURE [...] [facility] [address] [address] OPERATIVE REPORT PATIENT NAME: Won Dennis DATE OF : 1980 PREOP DIAGNOSIS: Right Right below knee amputation stump infection POSTOP DIAGNOSIS: Same. PROCEDURE: Right Right 34036: Incision and drainage of surgical site infection 94778: Debridement of skin, subcutaneous tissue, muscle 37483: Wound vacuum-assisted closure SURGEON: Sushil Dean MD OPERATIVE TEAM: Aircraft Powerplant Repairer: Anum Sanchez RN Scrub Person: Hortencia Toribio; Gerald Ivey HAND BOBBIN CLEANER: Anesthesiologist: Luci Alonso DO ANESTHESIA: General ESTIMATED [...] ago swellling of the area. seen at [facility] yesterday for CT and US, here [...] this chart in the absence of a fact checker. No orders to display RADIOLOGY: [x] Radiologist's [...] 04/11/2025 1:30 PM EDT Continued Stay Note Childress Patient Name: Won Dennis Today's Date: 04/11/2025 Admit Date: 04/04/2025 Plan: Home with outpatient infusion. Discharge Plan Row Name 04/11/25 1155 Plan Plan Home with outpatient infusion. Final Discharge Disposition Code 01 - home or self-care Final Note Patient discharging today. He is discharging home with outpatient infusion at [facility]. He has an appointment with [facility] at 8:00 am tomorrow. They will do PICC line dressing changes. DEBRA has spoke with Dena at [facility] today multiple times to get setup due [...] to get IV ABX at home with [facility]; however, Medicaid lapsed on 04/08. DEBRA was unaware until this morning that Medicaid has lapsed. Patient explained that he has Medicare A and B. CM spoke with KELLEE and given themhis Medicare number [id number], she sent it to Admission. DEBRA spoke with Kerri, with [facility], and explained that he had Medicare A and B. However, it will not cover home infusion. It will be $64.00 a day out of packet. Patients can go to the Infusion center at [facility], and it will cover the cost as an outpatient. He will need to go there every day for infusion. They will be able to do the patients' PICC line dressing changes and lab work. CM called Dena [facility] infusion center they can accept patient and start him. He is known for their facility. The Facility will need to run it through his insurance first. CM faxed the orders over to [facility] at [phone]. CM will follow up with them tomorrow at [facility] to make sure they received the [...] with patient at bedside today. [facility] Patient getting PICC line [...] note were not included. Discharge Planning Assessment Childress Patient Name: Won Dennis Today's Date: 04/07/2025 [...] with family Patient/Family Anticipated Services at Transition case reviewerautomotive service manager Anticipated family or friend will provide Discharge Needs Assessment Equipment Currently Used at Home glucometer;shower chair;pulse ox;bp cuff;prosthesis;crutches Equipment Needed After Discharge none Discharge Plan Row Name 04/07/25 1144 Plan Plan Home Patient/Family in Agreement with Plan yes Plan Comments CM spoke with patient at bedside today. Patient lives with and his 5 kids in [facility]. 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 He has walker, cane, shower chair, and crutches. He requested a wheelchair for home. CM will order wheelchair through [employer]. He is not current with home health services. PCP is Dr. Jordan. Insurance is [facility] Medicaid [place]. Patient discharge plan is home with priavte transport. CM will follow for any discharge needs. Final Discharge Disposition Code 01 - home or self-care Continued Care and Services - Admitted Since 04/04/2025 No active coordination exists. Demographic Summary Row Name 04/07/25 1143 General Information Arrived From hospital Preferred Language Estonian Functional Status Row Name 04/07/25 1143 Functional [...] 3:4 0 PM EDT Right BKA infection OR SEC ABDOMINAL WALL SUTURE EVISCERATION/DEHSN 04/08/2025 3:20 [...] CBC Auto Differential (04/11/2025 3:40 AM EDT) [facility] WBC 7.87 3.40 - 10.80 10*3/mm3 04/11/2025 4:02 AM EDT [facility] RBC 4.70 4.14 - 5.80 10*6/mm3 04/11/2025 4:02 AM EDT [facility] Hemoglobin 12.8(L) 13.0 - 17.7 g/dL 04/11/2025 4:02 AM EDT [facility] Hematocrit 40.5 37.5 - 51.0 % 04/11/2025 4:02 AM EDT [facility] MCV 86.2 79.0 - 97.0 fL 04/11/2025 4:02 AM EDT [facility] MCH 27.2 26.6 - 33.0 pg 04/11/2025 4:02 AM EDT [facility] MCHC 31.6 31.5 - 35.7 g/dL 04/11/2025 4:02 AM EDT [facility] RDW 12.9 12.3 - 15.4 % 04/11/2025 4:02 AM EDT [facility] RDW-SD 40.5 37.0 - 54.0 fl 04/11/2025 4:02 AM EDT [facility] MPV 9.2 6.0 - 12.0 fL 04/11/2025 4:02 AM EDT [facility] Platelets 267 140 - 450 10*3/mm3 04/11/2025 4:02 AM [facility] Neutrophil % 59.5 42.7 - 76.0 % 04/11/2025 4:02 AM [facility] Lymphocyte % 26.3 19.6 - 45.3 % 04/11/2025 4:02 AM [facility] Monocyte % 9.3 5.0 - 12.0 % 04/11/2025 4:02 AM [facility] Eosinophil % 4.1 0.3 - 6.2 % 04/11/2025 4:02 AM [facility] Basophil % 0.4 0.0 - 1.5 % 04/11/2025 4:02 AM [facility] Immature Grans % 0.4 0.0 - 0.5 % 04/11/2025 4:02 AM [facility] Neutrophils, Absolute 4.69 1.70 - 7.00 10*3/mm3 04/11/2025 4:02 AM [facility] Lymphocytes, Absolute 2.07 0.70 - 3.10 10*3/mm3 04/11/2025 4:02 AM [facility] Monocytes, Absolute 0.73 0.10 - 0.90 10*3/mm3 04/11/2025 4:02 AM [facility] Eosinophils, Absolute 0.32 0.00 - 0.40 10*3/mm3 04/11/2025 4:02 AM [facility] Basophils, Absolute 0.03 0.00 - 0.20 10*3/mm3 04/11/2025 4:02 AM [facility] Immature Grans, Absolute 0.03 0.00 - 0.05 10*3/mm3 04/11/2025 4:02 AM [facility] nRBC 0.0 0.0 - 0.2 /100 WBC 04/11/2025 4:02 AM [facility] Blood Venipuncture / Unknown 04/11/2025 3:40 AM EDT 04/11/2025 3:59 AM EDT us Sushil Dean Jr., MD LAB BLOOD ORDERABLES Fi nal Result [facility]
[address] [place] [address], * (ABNORMAL) Comprehensive Metabolic Panel (04/11/2025 3:40 AM EDT) Glucose 108(H) 65 - 99 mg/dL 04/11/2025 4:19 AM EDT [facility] BUN 12.5 6.0 - 20.0 mg/dL 04/11/2025 4:19 AM EDT [facility] Creatinine 0.68(L) 0.76 - 1.27 mg/dL 04/11/2025 4:19 AM EDT [facility] Sodium 140 136 - 145 mmol/L 04/11/2025 4:19 AM EDT [facility] Potassium 3.8 3.5 - 5.2 mmol/L 04/11/2025 4:19 AM EDT [facility] Chloride 105 98 - 107 mmol/L 04/11/2025 4:19 AM EDT [facility] CO2 28.2 22.0 - 29.0 mmol/L 04/11/2025 4:19 AM EDT [facility] Calcium 8.2(L) 8.6 - 10.5 mg/dL 04/11/2025 4:19 AM EDT [facility] Total Protein 6.1 6.0 - 8.5 g/dL 04/11/2025 4:19 AM EDT [facility] Albumin 3.1(L) 3.5 - 5.2 g/dL 04/11/2025 4:19 AM EDT [facility] ALT (SGPT) 52(H) 1 - 41 U/L 04/11/2025 4:19 AM EDT [facility] AST (SGOT) 40 1 - 40 U/L 04/11/2025 4:19 AM EDT [facility] Alkaline Phosphatase 99 39 - 117 U/L 04/11/2025 4:19 AM EDT [facility] Total Bilirubin 0.2 0.0 - 1.2 mg/dL 04/11/2025 4:19 AM EDT [facility] Globulin 3.0 gm/dL 04/11/2025 4:19 AM EDT [facility] Comment:Calculated Result A/G Ratio 1.0 g/dL 04/11/2025 4:19 AM EDT [facility] BUN/Creatinine Ratio 18.4 7.0 - 25.0 04/11/2025 4:19 AM EDT [facility] Anion Gap 6.8 5.0 - 15.0 mmol/L 04/11/2025 4:19 AM EDT [facility] eGFR 117.5 >60.0 mL/min/1.7 3 04/11/2025 4:19 AM EDT [facility] Blood Venipuncture / Unknown 04/11/2025 3:40 AM EDT 04/11/2025 3:56 AM EDT [facility] - 04/11/2025 4:19 AM EDT [...] Hill APRN LAB BLOOD ORDERABLES Final Result [facility]
[address] [place] [address], * (ABNORMAL) CBC Auto Differential (04/10/2025 3:46 AM EDT) [facility] WBC 9.60 3.40 - 10.80 10*3/mm3 04/10/2025 3:56 AM EDT [facility] RBC 4.67 4.14 - 5.80 10*6/mm3 [facility] Hemoglobin 12.9(L) 13.0 - 17.7 g/dL 04/10/2025 3:56 AM EDT [facility] Hematocrit 40.1 37.5 - 51.0 % 04/10/2025 3:[facility] MCV 85.9 79.0 - 97.0 fL 04/10/2025 3:56 [facility] MCH 27.6 26.6 - 33.0 pg 04/10/2025 3:56 AM [facility] MCHC 32.2 31.5 - 35.7 g/dL 04/10/2025 3:56 [facility] RDW 12.9 12.3 - 15.4 % 04/10/2025 3:56 AM [facility] RDW-SD 40.5 37.0 - 54.0 fl 04/10/2025 3:56 AM [facility] MPV 9.5 6.0 - 12.0 fL 04/10/2025 3:56 AM [facility] Platelets 227 140 - 450 10*3/mm3 04/10/2025 3:56 AM EDT [facility] Neutrophil % 59.1 42.7 - 76.0 % 04/10/2025 3:56 [facility] Lymphocyte % 29.0 19.6 - 45.3 % 04/10/2025 3:56 [facility] Monocyte % 8.1 5.0 - 12.0 % 04/10/2025 3:56 [facility] Eosinophil % 3.2 0.3 - 6.2 % 04/10/2025 3:56 AM EDT [facility] Basophil % 0.4 0.0 - 1.5 % 04/10/2025 3:56 AM EDT [facility] Immature Grans % 0.2 0.0 - 0.5 % 04/10/2025 3:56 AM EDT [facility] Neutrophils, Absolute 5.67 1.70 - 7.00 10*3/mm3 04/10/2025 3:56 AM EDT [facility] Lymphocytes, Absolute 2.78 0.70 - 3.10 10*3/mm3 04/10/2025 3:56 AM EDT [facility] Monocytes, Absolute 0.78 0.10 - 0.90 10*3/mm3 04/10/2025 3:56 AM EDT [facility] Eosinophils, Absolute 0.31 0.00 - 0.40 10*3/mm3 04/10/2025 3:56 AM EDT [facility] Basophils, Absolute 0.04 0.00 - 0.20 10*3/mm3 04/10/2025 3:56 AM EDT [facility] Immature Grans, Absolute 0.02 0.00 - 0.05 10*3/mm3 04/10/2025 3:56 AM EDT [facility] nRBC 0.0 0.0 - 0.2 /100 WBC 04/10/2025 3:56 AM EDT [facility] Blood Venipuncture / Unknown 04/10/2025 3:46 AM EDT 04/10/2025 3:53 AM EDT Jason Álvarez DO LAB BLOOD ORDERABLES Final Resul t [facility]
[address] [place] [address], * (ABNORMAL) Basic Metabolic Panel (04/10/2025 3:46 AM EDT) [facility] Glucose 125(H) 65 - 99 mg/dL 04/10/2025 4:20 AM EDT [facility] BUN 15.9 6.0 - 20.0 mg/dL 04/10/2025 4:20 AM T [facility] Creatinine 0.77 0.76 - 1.27 mg/dL 04/10/2025 4:20 AM T [facility] Sodium 137 136 - 145 mmol/L 04/10/2025 4:20 AM [facility] Potassium 3.9 3.5 - 5.2 mmol/L 04/10/2025 4:20 AM EDT [facility] Chloride 102 98 - 107 mmol/L 04/10/2025 4:20 AM EDT [facility] CO2 26.9 22.0 - 29.0 mmol/L 04/10/2025 4:20 AM [facility] Calcium 7.9(L) 8.6 - 10.5 mg/dL 04/10/2025 4:20 AM [facility] BUN/Creatinine Ratio 20.6 7.0 - 25.0 04/10/2025 4:20 AM [facility] Anion Gap 8.1 5.0 - 15.0 mmol/L 04/10/2025 4:20 AM [facility] eGFR 113.2 >60.0 mL/min/1.7 3 04/10/2025 4:20 AM [facility] Blood Venipuncture / Unknown 04/10/2025 3:46 AM EDT 04/10/2025 3:52 AM EDT [facility] - 04/10/2025 4:20 AM EDT [...] DO LAB BLOOD ORDERABLES Final Resul t [facility]
[address] [place] [address], * Heparin Anti-Xa (04/10/2025 3:46 AM EDT) Heparin Anti-Xa (UFH) 0.35 0.30 - 0.70 IU/ml 04/10/2025 4:23 AM EDT [facility] Blood Venipuncture / Unknown 04/10/2025 3:46 AM EDT 04/10/2025 3:53 AM EDT [facility] LAB BLOOD ORDERABLES Final R esult Performing Organization Address City/[facility]/ZIP Co de Phone Number [facility]
[address] [place] [address], * Heparin Anti-Xa (04/09/2025 10:05 AM EDT) Heparin Anti-Xa (UFH) 0.36 0.30 - 0.70 IU/ml 04/09/2025 11:12 AM EDT [facility] Blood Venipuncture / Unknown 04/09/2025 10:05 AM EDT 04/09/2025 10:47 AM EDT [facility] LAB BLOOD ORDERABLES Final R esult [facility]
[address] [place] [address], * (ABNORMAL) CBC Auto Differential (04/09/2025 4:18 AM EDT) WBC 11.00(H) 3.40 - 10.80 10*3/mm3 04/09/2025 4:50 AM [facility] RBC 4.70 4.14 - 5.80 10*6/mm3 04/09/2025 4:50 AM EDT [facility] Hemoglobin 13.0 13.0 - 17.7 g/dL 04/09/2025 4:50 AM EDT [facility] Hematocrit 40.4 37.5 - 51.0 % 04/09/2025 4:50 AM EDT [facility] MCV 86.0 79.0 - 97.0 fL 04/09/2025 4:50 AM EDT [facility] MCH 27.7 26.6 - 33.0 pg 04/09/2025 4:[facility] MCHC 32.2 31.5 - 35.7 g/dL 04/09/2025 4:50 [facility] RDW 12.8 12.3 - 15.4 % 04/09/2025 4:50 [facility] RDW-SD 39.9 37.0 - 54.0 fl 04/09/2025 4:50 AM [facility] MPV 10.0 6.0 - 12.0 fL 04/09/2025 4:50 AM [facility] Platelets 211 140 - 450 10*3/mm3 04/09/2025 4:50 [facility] Neutrophil % 74.8 42.7 - 76.0 % 04/09/2025 4:50 AM EDT [facility] Lymphocyte % 15.4(L) 19.6 - 45.3 % 04/09/2025 4:50 AM EDT [facility] Monocyte % 8.5 5.0 - 12.0 % 04/09/2025 4:50 AM EDT [facility] Eosinophil % 0.6 0.3 - 6.2 % 04/09/2025 4:50 [facility] Basophil % 0.4 0.0 - 1.5 % 04/09/2025 4:50 AM EDT [facility] Immature Grans % 0.3 0.0 - 0.5 % 04/09/2025 4:50 AM EDT [facility] Neutrophils, Absolute 8.23(H) 1.70 - 7.00 10*3/mm3 04/09/2025 4:50 AM EDT [facility] Lymphocytes, Absolute 1.69 0.70 - 3.10 10*3/mm3 04/09/2025 4:50 AM EDT [facility] Monocytes, Absolute 0.94(H) 0.10 - 0.90 10*3/mm3 04/09/2025 4:50 AM EDT [facility] Eosinophils, Absolute 0.07 0.00 - 0.40 10*3/mm3 04/09/2025 4:50 AM EDT [facility] Basophils, Absolute 0.04 0.00 - 0.20 10*3/mm3 04/09/2025 4:50 AM EDT [facility] Immature Grans, Absolute 0.03 0.00 - 0.05 10*3/mm3 04/09/2025 4:50 AM EDT [facility] nRBC 0.0 0.0 - 0.2 /100 WBC 04/09/2025 4:50 AM EDT [facility] Blood Venipuncture / Unknown 04/09/2025 4:18 AM EDT 04/09/2025 4:31 AM EDT Sushil Dean Jr., MD LAB BLOOD ORDERABLES Fi nal Result [facility]
[address] [place] [address], * Heparin Anti-Xa (04/09/2025 4:18 AM EDT) Heparin Anti-Xa (UFH) 0.41 0.30 - 0.70 IU/ml 04/09/2025 4:53 AM EDT [facility] Blood Venipuncture / Unknown 04/09/2025 4:18 AM EDT 04/09/2025 4:31 AM EDT Una Wheeleroy PharmD LAB BLOOD ORDERABLES Final R esult [facility]
[address] [place] [address], * (ABNORMAL) Basic Metabolic Panel (04/09/2025 4:18 AM EDT) Pathologist [facility] Glucose 147(H) 65 - 99 mg/dL 04/09/2025 5:33 AM EDT [facility] BUN 23.0(H) 6.0 - 20.0 mg/dL 04/09/2025 5:33 AM EDT [facility] Creatinine 1.15 0.76 - 1.27 mg/dL 04/09/2025 5:33 AM EDT [facility] Sodium 135(L) 136 - 145 mmol/L 04/09/2025 5:33 AM EDT [facility] Potassium 4.2 3.5 - 5.2 mmol/L 04/09/2025 5:33 AM EDT [facility] Chloride 100 98 - 107 mmol/L 04/09/2025 5:33 AM EDT [facility] CO2 26.0 22.0 - 29.0 mmol/L 04/09/2025 5:33 AM EDT [facility] Calcium 8.2(L) 8.6 - 10.5 mg/dL 04/09/2025 5:33 AM EDT [facility] BUN/Creatinine Ratio 20.0 7.0 - 25.0 04/09/2025 5:33 AM EDT [facility] Anion Gap 9.0 5.0 - 15.0 mmol/L 04/09/2025 5:33 AM EDT [facility] eGFR 80.5 >60.0 mL/min/1.7 3 04/09/2025 5:33 AM EDT [facility] Blood Venipuncture / Unknown 04/09/2025 4:18 AM EDT 04/09/2025 4:29 AM EDT Narrative [facility] - 04/09/2025 5:33 AM [...] ORDERABLES Fi nal Result Performing Organization Address [facility] Co de Phone Number [facility]
[address] [place] [address], * Wound Culture - Swab, Leg, Right (04/08/2025 3:40 PM EDT) Wound Culture No growth at 3 days ALIZA 04/11/2025 10:40 AM EDT [facility] Gram Stain Few (2+) WBCs seen 04/11/2025 10:40 AM EDT [facility] Gram Stain No organisms seen 04/11/2025 10:40 AM EDT [facility] Swab Structure of right lower limb / Unknown 04/08/2025 3:40 PM EDT 04/08/2025 8:05 PM EDT Sushil Dean Jr., MD MICROBIOLOGY - GENERAL ORDERABLES Final Result Performing Organization Address City/[facility]/ZIP Co de Phone Number [facility]
[address] [phone], [facility]
[address] [place] [address], * Anaerobic Culture - Swab, Leg, Right (04/08/2025 3:40 PM EDT) Pathologist [facility] Anaerobic Culture No anaerobes isolated at 5 days ALIZA 04/13/2025 7:24 AM EDT [facility] Swab Structure of right lower limb / Unknown 04/08/2025 3:40 PM EDT 04/08/2025 8:05 PM EDT Sushil Dean Jr., MD MICROBIOLOGY - GENERAL ORDERABLES Final Result Performing Organization Address City/[facility] Co de Phone Number [facility]
[address] [place] [address], [place] [phone] * Scan Slide (04/08/2025 8:41 AM EDT) Pathologist [facility] RBC Morphology Normal Normal 04/08/2025 11:02 AM EDT [facility] WBC Morphology Normal Normal 04/08/2025 11:02 AM EDT [facility] Platelet Estimate Adequate Normal 04/08/2025 11:02 AM EDT [facility] Clumped Platelets Present None Seen 04/08/2025 11:02 AM EDT [facility] Blood Venipuncture / Unknown 04/08/2025 8:41 AM EDT 04/08/2025 9:10 AM EDT Una LundbergD LAB BLOOD ORDERABLES Final R esult Performing Organization Address City/[facility]/ZIP Co de Phone Number [facility]
[address] [place] [address], [place] [phone] * (ABNORMAL) CBC Auto Differential (04/08/2025 8:41 AM EDT) Pathologist [facility] WBC 10.07 3.40 - 10.80 10*3/mm3 04/08/2025 11:02 AM EDT [facility] RBC 5.01 4.14 - 5.80 10*6/mm3 04/08/2025 11:02 AM EDT [facility] Hemoglobin 14.0 13.0 - 17.7 g/dL 04/08/2025 11:02 AM [facility] Hematocrit 42.7 37.5 - 51.0 % 04/08/2025 11:02 AM [facility] MCV 85.2 79.0 - 97.0 fL 04/08/2025 11:02 AM [facility] MCH 27.9 26.6 - 33.0 pg 04/08/2025 11:02 AM [facility] MCHC 32.8 31.5 - 35.7 g/dL 04/08/2025 11:02 AM [facility] RDW 12.6 12.3 - 15.4 % 04/08/2025 11:02 AM [facility] RDW-SD 38.9 37.0 - 54.0 fl 04/08/2025 11:02 AM [facility] MPV 11.0 6.0 - 12.0 fL 04/08/2025 11:02 AM [facility] Platelets 118(L) 140 - 450 10*3/mm3 04/08/2025 11:02 AM [facility] Neutrophil % 85.1(H) 42.7 - 76.0 % 04/08/2025 11:02 AM [facility] Lymphocyte % 9.3(L) 19.6 - 45.3 % 04/08/2025 11:02 AM [facility] Monocyte % 4.6(L) 5.0 - 12.0 % 04/08/2025 11:02 AM [facility] Eosinophil % 0.3 0.3 - 6.2 % 04/08/2025 11:02 AM [facility] Basophil % 0.2 0.0 - 1.5 % 04/08/2025 11:02 AM [facility] Immature Grans % 0.5 0.0 - 0.5 % 04/08/2025 11:02 AM [facility] Neutrophils, Absolute 8.57(H) 1.70 - 7.00 10*3/mm3 04/08/2025 11:02 AM EDT [facility] Lymphocytes, Absolute 0.94 0.70 - 3.10 10*3/mm3 04/08/2025 11:02 AM EDT [facility] Monocytes, Absolute 0.46 0.10 - 0.90 10*3/mm3 04/08/2025 11:02 AM EDT [facility] Eosinophils, Absolute 0.03 0.00 - 0.40 10*3/mm3 04/08/2025 11:02 AM EDT [facility] Basophils, Absolute 0.02 0.00 - 0.20 10*3/mm3 04/08/2025 11:02 AM EDT [facility] Immature Grans, Absolute 0.05 0.00 - 0.05 10*3/mm3 04/08/2025 11:02 AM EDT [facility] nRBC 0.0 0.0 - 0.2 /100 WBC 04/08/2025 11:02 AM EDT [facility] Blood Venipuncture / Unknown 04/08/2025 8:41 AM EDT 04/08/2025 9:10 AM EDT Una Perla PharmD LAB BLOOD ORDERABLES Final R esult [facility]
[id number] [place] [address], * (ABNORMAL) Basic Metabolic Panel (04/08/2025 8:41 AM EDT) Glucose 125(H) 65 - 99 mg/dL 04/08/2025 9:51 AM EDT [facility] BUN 13.2 6.0 - 20.0 mg/dL 04/08/2025 9:51 AM EDT [facility] Creatinine 0.69(L) 0.76 - 1.27 mg/dL 04/08/2025 9:51 AM EDT [facility] Sodium 136 136 - 145 mmol/L 04/08/2025 9:51 AM EDT [facility] Potassium 4.6 3.5 - 5.2 mmol/L 04/08/2025 9:51 AM EDT [facility] Chloride 102 98 - 107 mmol/L 04/08/2025 9:51 AM EDT [facility] CO2 23.5 22.0 - 29.0 mmol/L 04/08/2025 9:51 AM EDT [facility] Calcium 8.4(L) 8.6 - 10.5 mg/dL 04/08/2025 9:51 AM EDT [facility] BUN/Creatinine Ratio 19.1 7.0 - 25.0 04/08/2025 9:51 AM EDT [facility] Anion Gap 10.5 5.0 - 15.0 mmol/L 04/08/2025 9:51 AM EDT [facility] eGFR 117.0 >60.0 mL/min/1.7 3 04/08/2025 9:51 AM EDT [facility] Blood Venipuncture / Unknown 04/08/2025 8:41 AM EDT 04/08/2025 9:09 AM EDT [facility] - 04/08/2025 9:51 AM EDT [...] Jr., MD LAB BLOOD ORDERABLES nal Result [facility]
[address] [place] [address], * Heparin Anti-Xa (04/08/2025 8:41 AM EDT) Heparin Anti-Xa (UFH) 0.33 0.30 - 0.70 IU/ml 04/08/2025 9:40 AM EDT [facility] Blood Venipuncture / Unknown 04/08/2025 8:41 AM EDT 04/08/2025 9:10 AM EDT Sushil Dean Jr., MD LAB BLOOD ORDERABLES Fi nal Result [facility]
[address] [place] [address], * FL C Arm During Surgery (04/07/2025 9:32 PM EDT) Narrative SYSTEMGENERATED, DOCUMENTATION - 04/07/2025 9:38 PM EDT This procedure was auto-finalized with no dictation required. Sushil Dean Jr., MD IMG FLUOROSCOPY ORDERAB LES Final Result * Wound Culture - Swab, Leg, Right (04/07/2025 9:14 PM EDT) Wound Culture No growth at 3 days ALIZA 04/11/2025 10:40 AM EDT [facility] Gram Stain Occasional WBCs seen 04/11/2025 10:40 AM EDT [facility] Gram Stain No organisms seen 04/11/2025 10:40 AM EDT [facility] Swab Structure of right lower limb / Unknown Collection / Unknown 04/07/2025 9:14 PM EDT 04/08/2025 4:36 AM EDT Sushil Dean Jr., MD MICROBIOLOGY - GENERAL ORDERABLES Final Result [facility]
[address] [place] [address], [facility]
[address] [place] [address], * Anaerobic Culture - Swab, Leg, Right (04/07/2025 9:14 PM EDT) Anaerobic Culture No anaerobes isolated at 5 days ALIZA 04/13/2025 7:21 AM EDT [facility] Swab Structure of right lower limb / Unknown Collection / Unknown 04/07/2025 9:14 PM EDT 04/08/2025 4:36 AM EDT Sushil Dean Jr., MD MICROBIOLOGY - GENERAL ORDERABLES Final Result Performing Organization Address City/[facility]/ZIP Co de Phone Number [facility]
[address] [place] [address], * Anaerobic Culture - Tissue, Leg (04/07/2025 9:13 PM EDT) Anaerobic Culture No anaerobes isolated at 5 days ALIZA 04/13/2025 7:21 AM EDT [facility] Tissue Lower limb structure / Unknown Collection / Unknown 04/07/2025 9:13 PM EDT 04/08/2025 4:54 AM EDT Jason Álvarez DO MICROBIOLOGY - GENERAL ORDERABLE S Final Result [facility]
[address] [place] [address], * Tissue / Bone Culture - Tissue, Leg, Right (04/07/2025 9:13 PM EDT) Tissue Culture No growth at 3 days ALIZA 04/11/2025 10:36 AM EDT [facility] Gram Stain Rare (1+) WBCs seen 04/11/2025 10:36 AM EDT [facility] Gram Stain No organisms seen 04/11/2025 10:36 AM EDT [facility] Tissue Structure of right lower limb / Unknown 04/07/2025 9:13 PM EDT 04/08/2025 4:54 AM EDT Sushil Dean Jr., MD MICROBIOLOGY - GENERAL ORDERABLES Final Result Performing Organization Address City/[facility]/ZIP Co de Phone Number [facility]
[address] [place] [address], [place] [phone] [facility]
[address] [place] [address], [place] [phone] * (ABNORMAL) Wound Culture - Swab, Leg, Right (04/07/2025 9:07 PM EDT) Wound Culture Light growth (2+) Staphylococcus aureus, MRSA(A) ALIZA 04/10/2025 10:38 AM EDT [facility] Comment: Methicillin resistant Staphylococcus aureus, Patient may be an isolation risk. Gram Stain Few (2+) WBCs seen 04/10/2025 10:38 AM EDT [facility] Gram Stain No organisms seen 10:38 AM EDT [facility] Swab Structure of right [...] MD MICROBIOLOGY - GENERAL ORDERABLES Final Result [facility]
[address] [place] [address], [facility]
[address] [place] [address], * Anaerobic Culture - Swab, Leg, Right (04/07/2025 9:07 PM EDT) Pathologist [facility] Anaerobic Culture No anaerobes isolated at 5 days ALIZA 04/13/2025 7:21 AM EDT [facility] Swab Structure of right lower limb / Unknown Collection / Unknown 04/07/2025 9:07 PM EDT 04/08/2025 4:36 AM EDT Sushil Dean Jr., MD MICROBIOLOGY - GENERAL ORDERABLES Final Result Performing Organization Address [facility] Co de Phone Number [facility]
[address] [place] [address], * Heparin Anti-Xa (04/07/2025 9:10 AM EDT) [facility] Heparin Anti-Xa (UFH) 0.30 0.30 - 0.70 IU/ml 04/07/2025 10:12 AM EDT [facility] Blood Venipuncture / Unknown 04/07/2025 9:10 AM EDT 04/07/2025 9:38 AM EDT Una LundbergD LAB BLOOD ORDERABLES Final R esult Performing Organization Address City/[facility]/ZIP Co de Phone Number [facility]
[address] [place] [address], * (ABNORMAL) CBC Auto Differential (04/07/2025 9:10 AM EDT) Pathologist [facility] WBC 8.63 3.40 - 10.80 10*3/mm3 04/07/2025 9:50 AM EDT [facility] RBC 5.23 4.14 - 5.80 10*6/mm3 04/07[facility] Hemoglobin 14.7 13.0 - 17.7 g/dL 04/07/2025 9:[facility] Hematocrit 44.8 37.5 - 51.0 % 04/07/2025 9:50 [facility] MCV 85.7 79.0 - 97.0 fL 04/07/2025 9:50 AM EDT [facility] MCH 28.1 26.6 - 33.0 pg 04/07/2025 9:50 [facility] MCHC 32.8 31.5 - 35.7 g/dL 04/07/2025 9:50 [facility] RDW 12.8 12.3 - 15.4 % 04/07/2025 9:50 AM [facility] RDW-SD 39.9 37.0 - 54.0 fl 04/07/2025 9:50 AM [facility] MPV 10.8 6.0 - 12.0 fL 04/07/2025 9:50 AM [facility] Platelets 149 140 - 450 10*3/mm3 04/07/2025 9:50 [facility] Neutrophil % 66.7 42.7 - 76.0 % 04/07/2025 9:50 AM [facility] Lymphocyte % 20.5 19.6 - 45.3 % 04/07/2025 9:50 AM EDT [facility] Monocyte % 9.8 5.0 - 12.0 % 04/07/2025 9:50 [facility] Eosinophil % 2.1 0.3 - 6.2 % 04/07/2025 9:50 [facility] Basophil % 0.3 0.0 - 1.5 % 04/07/2025 9:50 [facility] Immature Grans % 0.6(H) 0.0 - 0.5 % 04/07/2025 9:50 AM EDT [facility] Neutrophils, Absolute 5.75 1.70 - 7.00 10*3/mm3 04/07/2025 9:50 AM EDT [facility] Lymphocytes, Absolute 1.77 0.70 - 3.10 10*3/mm3 04/07/2025 9:50 AM EDT [facility] Monocytes, Absolute 0.85 0.10 - 0.90 10*3/mm3 04/07/2025 9:50 AM EDT [facility] Eosinophils, Absolute 0.18 0.00 - 0.40 10*3/mm3 04/07/2025 9:50 AM EDT [facility] Basophils, Absolute 0.03 0.00 - 0.20 10*3/mm3 04/07/2025 9:50 AM EDT [facility] Immature Grans, Absolute 0.05 0.00 - 0.05 10*3/mm3 04/07/2025 9:50 AM EDT [facility] nRBC 0.0 0.0 - 0.2 /100 WBC 04/07/2025 9:50 AM EDT [facility] Blood Venipuncture / Unknown 04/07/2025 9:10 AM EDT 04/07/2025 9:38 AM EDT us Jason Álvarez DO LAB BLOOD ORDERABLES Final Resul t [facility]
[address] [place] [address], * (ABNORMAL) Basic Metabolic Panel (04/07/2025 9:10 AM EDT) Glucose 112(H) 65 - 99 mg/dL 04/07/2025 10:19 AM EDT [facility] BUN 13.1 6.0 - 20.0 mg/dL 04/07/2025 10:19 AM EDT [facility] Creatinine 0.77 0.76 - 1.27 mg/dL 04/07/2025 10:19 AM EDT [facility] Sodium 139 136 - 145 mmol/L 04/07/2025 10:19 AM EDT [facility] Potassium 4.2 3.5 - 5.2 mmol/L 04/07/2025 10:19 AM EDT [facility] Comment:Specimen hemolyzed. Result may be falsely elevated. Chloride 105 98 - 107 mmol/L 04/07/2025 10:19 AM EDT [facility] CO2 24.8 22.0 - 29.0 mmol/L 04/07/2025 10:19 AM EDT [facility] Calcium 8.6 8.6 - 10.5 mg/dL 04/07/2025 10:19 AM T [facility] BUN/Creatinine Ratio 17.0 7.0 - 25.0 04/07/2025 10:19 AM EDT [facility] Anion Gap 9.2 5.0 - 15.0 mmol/L 04/07/2025 10:19 AM T [facility] eGFR 113.2 >60.0 mL/min/1.7 3 04/07/2025 10:19 AM T [facility] Blood Venipuncture / Unknown 04/07/2025 9:10 AM EDT 04/07/2025 9:38 AM EDT Narrative [facility] - 04/07/2025 10:19 AM [...] not include race as a factor us aJson Álvarez DO LAB BLOOD ORDERABLES Final Resul t [facility]
[address] [place] [address], * MRI Tibia Fibula Right With & [...] [place] 04/07/2025 9:58 AM EDT Workstation ID: [id number] Narrative 04/07/2025 9:58 AM EDT MRI TIBIA [...] [place] 04/07/2025 9:58 AM EDT Workstation ID: [id number] us Sushil Dean Jr., MD [facility] MRI ORDERABLES Mary Beth l Result * Heparin Anti-Xa (04/07/2025 1:42 AM EDT) Heparin Anti-Xa (UFH) 0.38 0.30 - 0.70 IU/ml 04/07/2025 2:14 AM EDT [facility] Blood Venipuncture / Unknown 04/07/2025 1:42 AM EDT 04/07/2025 1:54 AM EDT Chelsie Navarretesapna [facility] LAB BLOOD ORDERABLES Final R esult Performing Organization Address City/[facility]/ZIP Co de Phone Number [facility]
[address] [place] [address], * Heparin Anti-Xa (04/06/2025 7:16 PM EDT) Pathologist [facility] Heparin Anti-Xa (UFH) 0.33 0.30 - 0.70 IU/ml 04/06/2025 7:50 PM EDT [facility] Blood Venipuncture / Unknown 04/06/2025 7:16 PM EDT 04/06/2025 7:35 PM EDT Cherri Beatty [facility] LAB BLOOD ORDERABLES Final Res ult Performing Organization Address City/[facility] Co de Phone Number [facility]
[address] [place] [address], * Potassium (04/06/2025 7:16 PM EDT) Pathologist [facility] Potassium 4.0 3.5 - 5.2 mmol/L 04/06/2025 7:53 PM EDT [facility] Blood Venipuncture / Unknown 04/06/2025 7:16 PM EDT 04/06/2025 7:35 PM EDT Jason Álvarez DO LAB BLOOD ORDERABLES Final Resul t Performing Organization Address City/[facility]/ZIP Co de Phone Number [facility]
[address] [place] [address], * (ABNORMAL) Heparin Anti-Xa (04/06/2025 12:36 PM EDT) Heparin Anti-Xa (UFH) 0.24(L) 0.30 - 0.70 IU/ml 04/06/2025 1:23 PM EDT [facility] Blood Venipuncture / Unknown 04/06/2025 12:36 PM EDT 04/06/2025 1:07 PM EDT Una LundbergD LAB BLOOD ORDERABLES Final R esult [facility]
[address] [place] [address], * (ABNORMAL) Heparin Anti-Xa (04/06/2025 3:42 AM EDT) [facility] Heparin Anti-Xa (UFH) 0.25(L) 0.30 - 0.70 IU/ml 04/06/2025 5:30 AM EDT [facility] Blood Venipuncture / Unknown 04/06/2025 3:42 AM EDT 04/06/2025 4:59 AM EDT Chelsie Turpin [facility] LAB BLOOD ORDERABLES Final R esult [facility]
[address] [place] [address], * (ABNORMAL) Basic Metabolic Panel (04/06/2025 3:42 AM EDT) [facility] Glucose 94 65 - 99 mg/dL 04/06/2025 5:59 AM EDT [facility] BUN 12.8 6.0 - 20.0 mg/dL 04/06/2025 5:59 AM EDT [facility] Creatinine 0.80 0.76 - 1.27 mg/dL 04/06/2025 5:59 AM EDT [facility] Sodium 138 136 - 145 mmol/L 04/06/2025 5:59 AM EDT [facility] Potassium 3.6 3.5 - 5.2 mmol/L 04/06/2025 5:59 AM EDT [facility] Chloride 103 98 - 107 mmol/L 04/06/2025 5:59 AM EDT [facility] CO2 24.2 22.0 - 29.0 mmol/L 04/06/2025 5:59 AM EDT [facility] Calcium 8.0(L) 8.6 - 10.5 mg/dL 04/06/2025 5:59 AM EDT [facility] BUN/Creatinine Ratio 16.0 7.0 - 25.0 04/06/2025 5:59 AM EDT [facility] Anion Gap 10.8 5.0 - 15.0 mmol/L 04/06/2025 5:59 AM EDT [facility] eGFR 111.9 >60.0 mL/min/1.7 3 04/06/2025 5:59 AM EDT [facility] Blood Venipuncture / Unknown 04/06/2025 3:42 AM EDT 04/06/2025 5:20 AM EDT Narrative [facility] - 04/06/2025 5:59 AM [...] DO LAB BLOOD ORDERABLES Final Resul t [facility]
[address] [place] [address], * (ABNORMAL) CBC Auto Differential (04/06/2025 3:41 AM EDT) WBC 10.86(H) 3.40 - 10.80 10*3/mm3 04/06/2025 5:04 AM EDT [facility] RBC 5.08 4.14 - 5.80 10*6/mm3 04/06/2025 5:04 AM EDT [facility] Hemoglobin 13.9 13.0 - 17.7 g/dL 04/06/2025 5:04 AM EDT [facility] Hematocrit 43.7 37.5 - 51.0 % 04/06/2025 5:04 AM EDT [facility] MCV 86.0 79.0 - 97.0 fL 04/06/2025 5:04 AM EDT [facility] MCH 27.4 26.6 - 33.0 pg 04/06/2025 5:04 AM EDT [facility] MCHC 31.8 31.5 - 35.7 g/dL 04/06/2025 5:04 AM EDT [facility] RDW 12.8 12.3 - 15.4 % 04/06/2025 5:04 AM EDT [facility] RDW-SD 40.0 37.0 - 54.0 fl 04/06/2025 5:04 AM EDT [facility] MPV 11.7 6.0 - 12.0 fL 04/06/2025 5:04 AM EDT [facility] Platelets 115(L) 140 - 450 10*3/mm3 04/06/2025 5:04 AM EDT [facility] Neutrophil % 65.3 42.7 - 76.0 % 04/06/2025 5:04 AM EDT [facility] Lymphocyte % 20.5 19.6 - 45.3 % 04/06/2025 5:04 AM EDT [facility] Monocyte % 11.8 5.0 - 12.0 % 04/06/2025 5:04 AM EDT [facility] Eosinophil % 1.8 0.3 - 6.2 % 04/06/2025 5:04 AM EDT [facility] Basophil % 0.3 0.0 - 1.5 % 04/06/2025 5:04 AM EDT [facility] Immature Grans % 0.3 0.0 - 0.5 % 04/06/2025 5:04 AM EDT [facility] Neutrophils, Absolute 7.09(H) 1.70 - 7.00 10*3/mm3 04/06/2025 5:04 AM EDT [facility] Lymphocytes, Absolute 2.23 0.70 - 3.10 10*3/mm3 04/06/2025 5:04 AM EDT [facility] Monocytes, Absolute 1.28(H) 0.10 - 0.90 10*3/mm3 04/06/2025 5:04 AM EDT [facility] Eosinophils, Absolute 0.20 0.00 - 0.40 10*3/mm3 04/06/2025 5:04 AM EDT [facility] Basophils, Absolute 0.03 0.00 - 0.20 10*3/mm3 04/06/2025 5:04 AM EDT [facility] Immature Grans, Absolute 0.03 0.00 - 0.05 10*3/mm3 04/06/2025 5:04 AM EDT [facility] nRBC 0.0 0.0 - 0.2 /100 WBC 04/06/2025 5:04 AM EDT [facility] Blood Venipuncture / Unknown 04/06/2025 3:41 AM EDT 04/06/2025 4:58 AM EDT us Jason Álvarez DO LAB BLOOD ORDERABLES Final Resul t [facility]
[address] [place] [address], * Heparin Anti-Xa (04/05/2025 8:43 PM EDT) Heparin Anti-Xa (UFH) 0.38 0.30 - 0.70 IU/ml 04/05/2025 9:09 PM EDT [facility] Blood Venipuncture / Unknown 04/05/2025 8:43 PM EDT 04/05/2025 8:55 PM EDT Cherri Beatty [facility] LAB BLOOD ORDERABLES Final Res ult Performing Organization Address [facility] Co de Phone Number [facility]
[address] [place] [address], * CK (04/05/2025 12:15 PM EDT) Creatine Kinase 140 20 - 200 U/L 04/05/2025 1:31 PM EDT [facility] Blood Venipuncture / Unknown 04/05/2025 12:15 PM EDT 04/05/2025 1:03 PM EDT Carlton Mead MD LAB BLOOD ORDERABLES Final R esult Performing Organization Address [facility] Co de Phone Number [facility]
[address] [place] [address], [place] [phone] * (ABNORMAL) Heparin Anti-Xa (04/05/2025 12:15 PM EDT) Heparin Anti-Xa (UFH) 0.17(L) 0.30 - 0.70 IU/ml 04/05/2025 1:21 PM EDT [facility] Blood Venipuncture / Unknown 04/05/2025 12:15 PM EDT 04/05/2025 1:04 PM EDT Una LundbergD LAB BLOOD ORDERABLES Final R esult Performing Organization Address City/[facility]/ZIP Co de Phone Number [facility]
[address] [place] [address], * (ABNORMAL) aPTT (04/05/2025 3:54 AM EDT) [facility] PTT 35.3(L) 60.0 - 90.0 seconds 04/05/2025 4:31 AM EDT [facility] Blood Venipuncture / Unknown 04/05/2025 3:54 AM EDT 04/05/2025 4:15 AM EDT Narrative [facility] - 04/05/2025 4:31 AM EDT PTT = The equivalent PTT values for the therapeutic range of heparin levels at 0.3 to 0.5 U/ml are 60 to 70 seconds. Una Perla MaPSD LAB BLOOD ORDERABLES Final R esult Performing Organization Address [facility] Co de Phone Number [facility]
[address] [place] [address], * Heparin Anti-Xa (04/05/2025 3:54 AM EDT) [facility] Heparin Anti-Xa (UFH) 0.30 0.30 - 0.70 IU/ml 04/05/2025 4:32 AM EDT [facility] Blood Venipuncture / Unknown 04/05/2025 3:54 AM EDT 04/05/2025 4:15 AM EDT MarkerlyD LAB BLOOD ORDERABLES Final R esult Performing Organization Address City/[facility] Co de Phone Number [facility]
[address] [place] [address], * (ABNORMAL) CBC Auto Differential (04/05/2025 3:54 AM EDT) [facility] WBC 11.18(H) 3.40 - 10.80 10*3/mm3 04/05/2025 4:20 AM EDT [facility] RBC 5.00 4.14 - 5.80 10*6/mm3 04/05/2025 4:20 AM EDT [facility] Hemoglobin 13.9 13.0 - 17.7 g/dL 04/05/2025 4:20 AM EDT [facility] Hematocrit 42.4 37.5 - 51.0 % 04/05/2025 4:20 AM EDT [facility] MCV 84.8 79.0 - 97.0 fL 04/05/2025 4:20 AM EDT [facility] MCH 27.8 26.6 - 33.0 pg 04/05/2025 4:[facility] MCHC 32.8 31.5 - 35.7 g/dL 04/05/2025 4:20 AM [facility] RDW 12.9 12.3 - 15.4 % 04/05/2025 4:20 AM [facility] RDW-SD 39.7 37.0 - 54.0 fl 04/05/2025 4:20 AM [facility] MPV 10.2 6.0 - 12.0 fL 04/05/2025 4:20 AM [facility] Platelets 160 140 - 450 10*3/mm3 04/05/2025 4:20 AM [facility] Neutrophil % 73.5 42.7 - 76.0 % 04/05/2025 4:20 [facility] Lymphocyte % 14.0(L) 19.6 - 45.3 % 04/05/2025 4:20 AM EDT [facility] Monocyte % 11.0 5.0 - 12.0 % 04/05/2025 4:[facility] Eosinophil % 0.8 0.3 - 6.2 % 04/05/2025 4:20 [facility] Basophil % 0.3 0.0 - 1.5 % 04/05/2025 4:20 AM EDT [facility] Immature Grans % 0.4 0.0 - 0.5 % 04/05/2025 4:20 AM EDT [facility] Neutrophils, Absolute 8.23(H) 1.70 - 7.00 10*3/mm3 04/05/2025 4:20 AM EDT [facility] Lymphocytes, Absolute 1.56 0.70 - 3.10 10*3/mm3 04/05/2025 4:20 AM EDT [facility] Monocytes, Absolute 1.23(H) 0.10 - 0.90 10*3/mm3 04/05/2025 4:20 AM EDT [facility] Eosinophils, Absolute 0.09 0.00 - 0.40 10*3/mm3 04/05/2025 4:20 AM EDT [facility] Basophils, Absolute 0.03 0.00 - 0.20 10*3/mm3 04/05/2025 4:20 AM EDT [facility] Immature Grans, Absolute 0.04 0.00 - 0.05 10*3/mm3 04/05/2025 4:20 AM EDT [facility] nRBC 0.0 0.0 - 0.2 /100 WBC 04/05/2025 4:20 AM EDT [facility] Blood Venipuncture / Unknown 04/05/2025 3:54 AM EDT 04/05/2025 4:16 AM EDT Una Perla PharmD LAB BLOOD ORDERABLES Final R esult [facility]
[address] [place] [address], * (ABNORMAL) Basic Metabolic Panel (04/05/2025 3:54 AM EDT) [facility] Signature Glucose 152(H) 65 - 99 mg/dL 04/05/2025 4:40 AM EDT [facility] BUN 17.3 6.0 - 20.0 mg/dL 04/05/2025 4:40 AM T [facility] Creatinine 0.92 0.76 - 1.27 mg/dL 04/05/2025 4:40 AM EDT [facility] Sodium 136 136 - 145 mmol/L 04/05/2025 4:40 AM EDT [facility] Potassium 3.9 3.5 - 5.2 mmol/L 04/05/2025 4:40 AM EDT [facility] Chloride 103 98 - 107 mmol/L 04/05/2025 4:40 AM EDT [facility] CO2 24.0 22.0 - 29.0 mmol/L 04/05/2025 4:40 AM T [facility] Calcium 7.8(L) 8.6 - 10.5 mg/dL 04/05/2025 4:40 AM [facility] BUN/Creatinine Ratio 18.8 7.0 - 25.0 04/05/2025 4:40 AM T [facility] Anion Gap 9.0 5.0 - 15.0 mmol/L 04/05/2025 4:40 AM [facility] eGFR 105.2 >60.0 mL/min/1.7 3 04/05/2025 4:40 AM [facility] Blood Venipuncture / Unknown 04/05/2025 3:54 AM EDT 04/05/2025 4:15 AM EDT [facility] - 04/05/2025 4:40 AM EDT [...] ORDERABLES Final Re sult Performing Organization Address [facility] Co de Phone Number [facility]
[address] [place] [address], * (ABNORMAL) aPTT (04/05/2025 12:18 AM EDT) PTT 33.6(L) 60.0 - 90.0 seconds 04/05/2025 12:53 AM EDT [facility] Blood Venipuncture / Unknown 04/05/2025 12:18 AM EDT 04/05/2025 12:37 AM EDT Narrative [facility] - 04/05/2025 12:53 AM EDT PTT = The equivalent PTT values for the therapeutic range of heparin levels at 0.3 to 0.5 U/ml are 60 to 70 seconds. Una Perla PharmD LAB BLOOD ORDERABLES Final R esult Performing Organization Address [facility] Co de Phone Number [facility]
[address] [place] [address], [place] [phone] * (ABNORMAL) Protime-INR (04/05/2025 12:18 AM EDT) Protime 15.9(H) 12.2 - 15.3 Seconds 04/05/2025 12:53 AM EDT [facility] INR 1.19(H) 0.89 - 1.12 04/05/2025 12:53 AM EDT [facility] Blood Venipuncture / Unknown 04/05/2025 12:18 AM EDT 04/05/2025 12:37 AM EDT Una Perla PharmD LAB BLOOD ORDERABLES Final R esult Performing Organization Address City/[facility] Co de Phone Number [facility]
[address] [place] [address], [place] [phone] * Heparin Anti-Xa (04/05/2025 12:18 AM EDT) Heparin Anti-Xa ([facility]) 0.39 0.30 - 0.70 IU/ml 04/05/2025 12:54 AM EDT [facility] Blood Venipuncture / Unknown 04/05/2025 12:18 AM EDT 04/05/2025 12:37 AM EDT Una Perla PharmD LAB BLOOD ORDERABLES Final R esult [facility]
[address] [place] [address], * MRI Tibia Fibula Right With & [...] MD 04/04/2025 11:00 PM EDT Workstation ID: [id number] Narrative 04/04/2025 11:00 PM EDT MRI TIBIA [...] MD 04/04/2025 11:00 PM EDT Workstation ID: [id number] us Leonora Shepherd MD IMG MRI ORDERABLES Final Resu lt * POC Creatinine (04/04/2025 2:49 PM EDT) [facility] Creatinine 1.10 0.60 - 1.30 mg/dL 04/07/2025 7:14 PM EDT [facility] Comment:Serial Number: [id number] 7Operator: [id number] Venous Blood 04/04/2025 2:49 PM EDT 04/07/2025 7:14 PM EDT Jason Álvarez DO POINT OF CARE TEST ORDERABLES Fi nal Result [facility]
[address] [place] [address], * (ABNORMAL) CBC Auto Differential (04/04/2025 2:47 PM EDT) [facility] WBC 12.72(H) 3.40 - 10.80 10*3/mm3 04/04/2025 2:56 PM EDT [facility] RBC 5.64 4.14 - 5.80 10*6/mm3 04/04/2025 2:56 PM EDT [facility] Hemoglobin 15.3 13.0 - 17.7 g/dL 04/04/2025 2:56 PM EDT [facility] Hematocrit 47.9 37.5 - 51.0 % 04/04/2025 2:56 PM EDT [facility] MCV 84.9 79.0 - 97.0 fL 04/04/2025 2:56 PM EDT [facility] MCH 27.1 26.6 - 33.0 pg 04/04/2025 2:56 PM EDT [facility] LABORATORY MCHC 31.9 31.5 - 35.7 g/dL 04/04/2025 2:56 PM EDT [facility] RDW 13.1 12.3 - 15.4 % [facility] R[facility]-SD 40.3 37.0 - 54.0 fl 04/04/2025 2:56 PM EDT [facility] MPV 9.4 6.0 - 12.0 fL 04/04/2025 2:56 PM EDT [facility] Platelets 232 140 - 450 10*3/mm3 04/04/2025 2:56 PM EDT [facility] Neutrophil % 74.9 42.7 - 76.0 % 04/04/2025 2:56 PM EDT [facility] Lymphocyte % 13.1(L) 19.6 - 45.3 % 04/[facility] Monocyte % 11.2 5.0 - 12.0 % 04/04[facility]2025 [facility] Eosinophil % 0.4 0.3 - 6.2 % 04/04/2025 2:56 PM EDT [facility] Basophil % 0.2 0.0 - 1.5 % 04/04/2025 2[facility] Immature Grans % 0.2 0.0 - 0.5 % 04/04/2025 2:[facility] Neutrophils, Absolute 9.52(H) 1.70 - 7.00 10*3/mm3 04/04/2025 2:56 PM [facility] Lymphocytes, Absolute 1.66 0.70 - 3.10 10*3/mm3 04/04/2025 2:56 PM EDT [facility] Monocytes, Absolute 1.43(H) 0.10 - 0.90 10*3/mm3 04/04/2025 2:56 PM EDT [facility] Eosinophils, Absolute 0.05 0.00 - 0.40 10*3/mm3 04/04/2025 [facility] Basophils, Absolute 0.03 0.00 - 0.20 10*3/mm3 04/04/2025 2:56 PM EDT [facility] Immature Grans, Absolute 0.03 0.00 - 0.05 10*3/mm3 04/04/2025 2:56 PM EDT [facility] nRBC 0.0 0.0 - 0.2 /100 WBC 04/04/2025 2:56 PM EDT [facility] Blood Venipuncture / Unknown 04/04/2025 2:47 PM EDT 04/04/2025 2:52 PM EDT Mario Ortiz GhanshyamITema LAB BLOOD ORDERABLES Fin al Result Performing Organization Address City/[facility]/ZIP Co de Phone Number [facility]
[address] [place] [address], * (ABNORMAL) C-reactive Protein (04/04/2025 2:47 PM EDT) C-Reactive Protein 8.57(H) 0.00 - 0.50 mg/dL 04/04/2025 3:26 PM EDT [facility] Blood Venipuncture / Unknown 04/04/2025 2:47 PM EDT 04/04/2025 2:52 PM EDT Mario Ortiz GhanshyamITema LAB BLOOD ORDERABLES Fin al Result Performing Organization Address [facility] de Phone Number [facility]
[address] [place] [address], * (ABNORMAL) Sedimentation Rate (04/04/2025 2:47 PM EDT) Sed Rate 51(H) 0 - 15 mm/hr 04/04/2025 3:06 PM EDT [facility] Blood Venipuncture / Unknown 04/04/2025 2:47 PM EDT 04/04/2025 2:52 PM EDT [facility] BLOOD ORDERABLES Fin al Result Performing Organization Address City/[facility]/ZIP Co de Phone Number [facility]
[address] [place] [address], * Comprehensive Metabolic Panel (04/04/2025 2:47 PM EDT) [facility] Glucose 90 65 - 99 mg/dL 04/04/2025 3:26 PM EDT [facility] BUN 18.3 6.0 - 20.0 mg/dL 04/04/2025 3:26 PM EDT [facility] Creatinine 0.94 0.76 - 1.27 mg/dL 04/04/2025 3:26 PM EDT [facility] Sodium 136 136 - 145 mmol/L 04/04/2025 3:26 PM EDT [facility] Potassium 3.8 3.5 - 5.2 mmol/L 04/04/2025 3:26 PM EDT [facility] Chloride 100 98 - 107 mmol/L 04/04/2025 3:26 PM EDT [facility] CO2 25.3 22.0 - 29.0 mmol/L 04/04/2025 3:26 PM EDT [facility] Calcium 8.6 8.6 - 10.5 mg/dL 04/04/2025 3:26 PM EDT [facility] Total Protein 7.3 6.0 - 8.5 g/dL 04/04/2025 3:26 PM EDT [facility] Albumin 4.1 3.5 - 5.2 g/dL 04/04/2025 3:26 PM EDT [facility] ALT (SGPT) 26 1 - 41 U/L 04/04/2025 3:26 PM EDT [facility] AST (SGOT) 25 1 - 40 U/L 04/04/2025 3:26 PM EDT [facility] Alkaline Phosphatase 106 39 - 117 U/L 04/04/2025 3:26 PM EDT [facility] Total Bilirubin 1.0 0.0 - 1.2 mg/dL 04/04/2025 3:26 PM EDT [facility] Globulin 3.2 gm/dL 04/04/2025 3:26 PM EDT [facility] Comment:Calculated Result A/G Ratio 1.3 g/dL 04/04/2025 3:26 PM EDT [facility] BUN/Creatinine Ratio 19.5 7.0 - 25.0 04/04/2025 3:26 PM EDT [facility] Anion Gap 10.7 5.0 - 15.0 mmol/L 04/04/2025 3:26 PM EDT [facility] eGFR 102.5 >60.0 mL/min/1.7 3 04/04/2025 3:26 PM EDT [facility] Blood Venipuncture / Unknown 04/04/2025 2:47 PM EDT 04/04/2025 2:52 PM EDT Narrative [facility] - 04/04/2025 3:26 PM [...] DO LAB BLOOD ORDERABLES Fin al Result [facility]
[address] [place] [address], documented in this encounter Visit Diagnoses Diagnosis [...] 04/05/2025 3:33 PM EDT 2,000 Units heparin 81462 units/250 mL (100 units/mL) in 0.45 % [...] BPA Driven Protocol Open Order & [facility] Electrolyte Replacement Protocol Algorithm to View [...] BPA Driven Protocol Open Order & [facility] Electrolyte Replacement Protocol Algorithm to View [...] disposal. 0831 (Given - Provider: Amber Salazar, SENIOR FUND ACCOUNTANT)194 (Given - Provider: Anahy Marcelino, SENIOR FUND ACCOUNTANT)2129 (Canceled Entry - Provider: Anahy Marcelino RRT [...] Continuous Medication Order 04/09/2025 04/10/2025 04/11/2025 heparin 24560 units/250 mL (100 units/mL) in 0.45 % [...] BPA Driven Protocol Open Order & [facility] Electrolyte Replacement Protocol Algorithm to View [...] BPA Driven Protocol Open Order & [facility] Electrolyte Replacement Protocol Algorithm to View [...] documented as of this encounter Care Teams Table Machine Operator Relationship Specialty Start Date End Date Provider, [place] [address] PCP - General 05/09/23 documented as of this encounter
--- OUTSIDE RECORDS SUMMARY | 2025-04-07 17:00 | XMS_ITS | Encounter Summary ---
Author Organization [facility] [place] Address [address] [place] [address] Care Team Providers Care Home Health Travel Ot Name Role Phone Provider, No Known Primary Care Provider Unavail able Reason for Visit * Reason Comments Leg Swelling * Auth/Cert Specialty Diagnoses / Procedures Referred By Contac t Referred To Contact Diagnoses Right BKA infection Referral ID Status Reason Start Date Expiration Date Visits Re quested Visits Authorized [id number] 1 1 Encounter Details Date Type Department Care Team (Late st Contact Info) Description 04/07/2025 6:00 PM EDT - 04/07/2025 6:52 PM EDT Surgery [facility] OR [address] [place] [address] Sushil Dean Jr., MD [address] [place] [address] [address] [id number] LEG DEBRIDEMENT, IRRIGATION Social History Tobacco Use Types Packs/Day Years Used Date Smoking Tobacco: Never Smokeless Tobacco: Never Tobacco Cessation:Counseling Given: Not Answered Alcohol Use Standard Drinks/Week Comments Not Currently 0 (1 standard drink = 0.6 oz pur e alcohol) [facility] Utilities Answer Date Recorded In the past 12 months has [employer] electric, gas, oil, or water company threatened [...] or training? Not on file Preferred Language Malagasy 04/07/2025 Sex and Gender Information Value Date [...] 2:25 PM EDT Cherri Grimm RN * [place] Suicide Severity Rating Scale (Screener/Recent Self-Report) Question [...] Date/Time Wound Culture - Swab, Leg, Right [[id number]] (Abnormal) (Susceptibility) Collected: 04/07/252106 Lab Status: Final [...] Units Date/Time FL C Arm During Surgery [[id number]] Resulted: 04/07/252137 Updated: 04/07/252137 Narrative: This procedure was auto-finalized with no dictation required. MRI Tibia Fibula Right With & Without Contrast [[id number]] Collected: 04/07/25 0938 Updated: 04/07/25 1001 Narrative: [...] Buenrostro 04/07/2025 9:58 AM EDT Workstation ID: [id number] MRI Tibia Fibula Right With & Without Contrast [[id number]] Collected: 04/04/252256 Updated: 04/04/252302 Narrative: MRI TIBIA [...] represent a small area of phlegmonous change ([id number] image 10) measuring approximately 1.6 cm which [...] MD 04/04/2025 11:00 PM EDT Workstation ID: [id number] Pending Labs Order Current Status Fungus Culture [...] Male) Date of 1980 Social Security Number [id number] [place] [address] [place] [address] Islam Unknown Marital Status Unknown Admission Date 04/04/2025 Admission Type Emergency Admitting Provider Jadyn Richardson DO Attending Provider Jadyn Richardson DO Department, Room/Bed [facility] 5G, S565/1 Discharge Date Discharge Disposition Discharge Destination Attending Provider: Jadyn Richardson DO Allergies: Ceftin [Cefuroxime], Keflex [Cephalexin], Latex Isolation: None Infection: MRSA (05/11/23) Code Status: CPR Ht: 180.3 cm (71 ) Wt: 134 kg (295 lb) Admission Cmt: None 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 Insurance as of 04/04/2025 Primary Coverage Payor Plan Insurance Group Employer/Plan Group [place] [id number] Payor Plan Address Payor Plan Phone Number Payor Plan Fax Number Effective Dates [employer] [address] [address] 08/10/2023 - None Entered [facility] [address] Subscriber Name Subscriber Date Member ID WON DENNIS 1980 [id number] Emergency Contacts Courtroom Deputy Or Calendar Clerk (Rel.) Home Phone Work Phone Mobile Phone Avril Dennis (Spouse) -- -- [phone] Robert Hackett (Relative) -- -- [phone] [facility] 5G [address] [facility] [address] Patient: ROOM: [facility] Won Dennis [address] 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 Outpatient intravenous antibiotic therapy: Daptomycin 800 mg IV daily to be supplied by [facility] 2. Home health to perform [...] INFECTIOUS DISEASE Progress Note Won Dennis 1980 [id number] Date of Consult: 04/10/2025 Admission Date: 04/04/2025 [...] Jr., MD, 20 mg at 04/09/25906 heparin 78539 units/250 mL (100 units/mL) in 0.45 % [...] Units Date/Time FL C Arm During Surgery [[id number]] Resulted: 04/07/252137 Updated: 04/07/252137 Narrative: This procedure was auto-finalized with no dictation required. MRI Tibia Fibula Right With & Without Contrast [[id number]] Collected: 04/07/2538 Updated: 04/07/25 1001 Narrative: MRI [...] Buenrostro 04/07/2025 9:58 AM EDT Workstation ID: [id number] Impression: Recurrent Right BKA stump abscess/cellulitis- this [...] discussed his disposition with the pharmacist at [facility] today. I will sign off Outpatient orders: 1. Outpatient intravenous antibiotic therapy: Daptomycin 800 mg IV daily to be supplied by [facility] 2. Home health to perform [...] 04/10/251323 Creation Time: 04/10/251323 Signed Expand All [facility] Medicine Services PROGRESS NOTE Patient Name: [...] Date/Time Wound Culture - Swab, Leg, Right [[id number]] (Abnormal) (Susceptibility) Collected: 04/07/252106 Lab Status: Final [...] Row Name 04/06/25 1143 Sit-Stand Transfer Sit-Stand Charles (Transfers) modified independence - Comment, (Sit-Stand Transfer) Pt stood from recliner. Not holding onto walker, pt able to pull his pants up while balancing on his one leg. -LM Row Name 04/06/25 1143 Gait/Stairs (Locomotion) Charles Level (Gait) modified independence - Distance in [...] Motion bilateral lower extremity ROM WFL -LM [facility] Name 04/06/25 1145 Strength Comprehensive (MMT) General Manual Muscle Testing (MMT) Assessment no strength deficits identified BLEs -LM [facility] Name 04/06/25 1145 Balance Balance Assessment [...] Physical Therapist Goals/Plan No documentation. Clinical Impression [facility] 04/06/25 1146 Pain Pretreatment Pain Rating 0/10 - no pain -LM Posttreatment Pain Rating 0/10 - no pain -LM [facility] 04/06/25 1146 Plan of Care Review Plan of Care Reviewed With patient -LM Outcome Evaluation PT evaluation completed. Pt demonstrated independence with all mobility including ambulating 100 feet using rw - no unsteadiness noted. Pt reports he feels at baseline and doesn't think he needs skilled PT while here. Recommend home at d/c. PT signing off. -LM [facility] Name 04/06/25 1146 Therapy Assessment/Plan (PT) Criteria for Skilled Interventions Met (PT) no;no problems identified which require skilled intervention -LM Therapy Frequency (PT) evaluation only -LM Predicted Duration of Therapy Intervention (PT) Eval Only -LM [facility] Name 04/06/25 1146 Vital Signs Pretreatment Heart Rate (beats/min) 86 -LM Posttreatment Heart Rate (beats/min) 96 -LM Pre SpO2 (%) 95 -LM O2 Delivery Pre Treatment room air -LM Post SpO2 (%) 96 -LM O2 Delivery Post Treatment room air -LM Pre Patient Position Sitting -LM Post Patient Position Sitting -LM [facility] Name 04/06/25 1146 Positioning and Restraints [...] Nurse Physical Therapy Education Title: PT OT DOMESTIC HOUSEKEEPER Therapies (Done) Topic: Physical Therapy (Done) Point: Mobility training (Done) Learning Progress Summary Patient Acceptance, E, VU,DU by at 04/06/2025 1147 Point: Precautions (Done) Learning Progress Summary Patient Acceptance, E, VU,DU by at 04/06/2025 1147 User Cabrera Initials Effective Dates Name Provider Type [facility] 01/24/25 - Susan Cavazos, PT Physical [...] Description Service Date Service Provider Modifiers Qty [id number] PT EVAL LOW COMPLEXITY 3 04/06/2025 Susan [...] mg Daily 04/05/2025 -- Route: Oral heparin 26007 units/250 mL (100 units/mL) in 0.45 % [...] 22 [facility] [address], [address] [facility], [address] Please schedule at [phone] VONDA Garcia 04/11/25 08:32 EDT Cosigned by [...] Date/Time Wound Culture - Swab, Leg, Right [[id number]] (Abnormal) (Susceptibility) Collected: 04/07/252106 Lab Status: Final [...] mg Daily 04/05/2025 -- Route: Oral heparin 75704 units/250 mL (100 units/mL) in 0.45 % [...] 22 [facility] [address], [address] [facility], [address] Please schedule at [phone] VONDA Garcia 04/10/25 09:01 EDT Cosigned by Sushil Dean Jr., MD at 04/19/2025 10:33 AM EDT Associated attestation - Sushil Dean Jr., MD - 04/19/2025 10:33 AM EDT I have reviewed this documentation and agree. * Carlton Mead MD - 04/10/2025 7:38 AM EDT Images from the original note were not included. INFECTIOUS DISEASE Progress Note Won Dennis 1980 [id number] Date of Consult: 04/10/2025 Admission Date: 04/04/2025 [...] IRRIGATION; Surgeon: Sushil Dean Jr., MD; Location: [facility] OR; Service: Orthopedics; Laterality: Right; PLACEMENT OF WOUND VAC Right 04/07/2025 Procedure: WOUND VACUUM ASSISTED CLOSURE; Surgeon: Sushil Dean Jr., MD; Location: [facility] OR; Service: Orthopedics; Laterality: Right; WOUND CLOSURE [...] Jr., MD, 20 mg at 04/09/25906 heparin 04119 units/250 mL (100 units/mL) in 0.45 % [...] Units Date/Time FL C Arm During Surgery [[id number]] Resulted: 04/07/252137 Updated: 04/07/252137 Narrative: This procedure was auto-finalized with no dictation required. MRI Tibia Fibula Right With & Without Contrast [[id number]] Collected: 04/07/25937 Updated: 04/07/25 100 Narrative: MRI [...] Buenrostro 04/07/2025 9:58 AM EDT Workstation ID: [id number] Impression: Recurrent Right BKA stump abscess/cellulitis- this [...] discussed his disposition with the pharmacist at [facility] today. I will sign off Outpatient orders: 1. Outpatient intravenous antibiotic therapy: Daptomycin 800 mg IV daily to be supplied by [facility] 2. Home health to perform [...] MD 04/10/2025 07:38 EDT * Larisa Hamilton [facility] [...] Date/Time Wound Culture - Swab, Leg, Right [[id number]] (Abnormal) Collected: 04/07/252106 Lab Status: Preliminary result [...] Jason Álvarez DO 04/09/25 * Larisa Hamilton [facility] [...] mg Daily 04/05/2025 -- Route: Oral heparin 65222 units/250 mL (100 units/mL) in 0.45 % [...] radiographs [facility] [address], [address] [facility], [address] Please schedule at [phone] VONDA Garcia 04/09/25 09:18 EDT Cosigned by Sushil Dean Jr., MD at 04/19/2025 10:33 AM EDT Associated attestation - Sushil Dean Jr., MD - 04/19/2025 10:33 AM EDT I have reviewed this documentation and agree. * Carlton Mead MD - 04/09/2025 8:25 AM EDT Images from the original note were not included. INFECTIOUS DISEASE Progress Note Won Dennis 1980 [id number] Date of Consult: 04/09/2025 Admission Date: 04/04/2025 [...] Sushil Dean Jr., MD; Location: [facility] OR; Service: Orthopedics; Laterality: Right; History reviewed. [...] for restart, , Not Applicable, BID, Sushil Daen Jr., MD, Given at 04/08/25 1146 acetaminophen [...] MD, 20 mg at 04/08/25 0800 heparin 87546 units/250 mL (100 units/mL) in 0.45 % [...] Units Date/Time FL C Arm During Surgery [[id number]] Resulted: 04/07/252137 Updated: 04/07/252137 Narrative: This procedure was auto-finalized with no dictation required. MRI Tibia Fibula Right With & Without Contrast [[id number]] Collected: 04/07/25 0938 Updated: 04/07/25 1001 Narrative: [...] Chitra 04/07/2025 9:58 AM EDT Workstation ID: [id number] Impression: Recurrent Right BKA stump abscess/cellulitis- this [...] mg IV daily to be supplied by [facility] 2. Home health to perform weekly PICC line dressing changes with a Biopatch or Tegaderm CHG gel dressing 3. CBC, CMP, ESR, CRP, and CPK weekly-forward results to Dr. Rubens Torres 4. Follow-up with Dr. Rbuens Torres in the next 1-2 weeks 5. [...] Buenrostro 04/07/2025 9:58 AM EDT Workstation ID: [id number] I have personally reviewed the therapy plans: [...] Jason Álvarez, DO 04/08/25 * Hamilton, Larisa, [facility] - [...] mg Daily 04/05/2025 -- Route: Oral heparin 71452 units/250 mL (100 units/mL) in 0.45 % [...] INFECTIOUS DISEASE Progress Note Won Dennis 1980 [id number] Date of Consult: 04/08/2025 Admission Date: 04/04/2025 [...] Sushil Dean Jr., MD; Location: [facility] OR; Service: Orthopedics; Laterality: Right; PLACEMENT OF WOUND VAC Right 04/07/2025 Procedure: WOUND VACUUM ASSISTED CLOSURE; Surgeon: Sushil Dean Jr., MD; Location: [facility] OR; Service: Orthopedics; Laterality: Right; History reviewed. [...] Oral, Q6H PRN, 500 mg at 04/06/25 1984 OR acetaminophen (TYLENOL) 160 MG/5ML oral solution [...] Jr., MD, 20 mg at 04/07/25950 heparin 48965 units/250 mL (100 units/mL) in 0.45 % [...] Units Date/Time FL C Arm During Surgery [[id number]] Resulted: 04/07/252137 Updated: 04/07/252137 Narrative: This procedure was auto-finalized with no dictation required. MRI Tibia Fibula Right With & Without Contrast [[id number]] Collected: 04/07/25 0938 Updated: 04/07/25 1001 Narrative: [...] of osteomyelitis at this time. Electronically Signed: [facility] Buenrostro 04/07/2025 9:58 AM EDT Workstation ID: [id number] Impression: 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 (Treated by ID in [place] Dr. Harris). Dr. Torres treated him with [...] Buenrostro 04/07/2025 9:58 AM EDT Workstation ID: [id number] I have personally reviewed the therapy plans: [...] Jason DO Preeti 04/07/25 * Larisa Hamilton, [facility] - [...] INFECTIOUS DISEASE Progress Note Won Dennis 1980 [id number] Date of Consult: 04/07/2025 Admission Date: 04/04/2025 [...] 40 mg, 40 mg, Oral, Nightly, Leonora hSepherd MD, 40 mg at 04/06/252100 sennosides-docusate (PERICOLACE) [...] puff, 2 puff, Inhalation, BID - RT, Jasno Álvarez DO, 2 puff at 04/06/251903 Calcium [...] MD, 20 mg at 04/06/25 0900 heparin 93902 units/250 mL (100 units/mL) in 0.45 % [...] With & Without Contrast - In process [[id number]] Resulted: 04/07/25828 Updated: 04/07/25828 This result has not been signed. Information might be incomplete. MRI Tibia Fibula Right With & Without Contrast [[id number]] Collected: 04/04/252256 Updated: 04/04/253 Narrative: MRI TIBIA [...] represent a small area of phlegmonous change ([id number] image 10) measuring approximately 1.6 cm which [...] MD 04/04/2025 11:00 PM EDT Workstation ID: [id number] Impression: 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 (Treated by ID in [place] Dr. Harris). Dr. Torres treated him with [...] mg Daily 04/05/2025 -- Route: Oral heparin 38637 units/250 mL (100 units/mL) in 0.45 % [...] MD 04/04/2025 11:00 PM EDT Workstation ID: [id number] I have personally reviewed the therapy plans: [...] mg Daily 04/05/2025 -- Route: Oral heparin 58722 units/250 mL (100 units/mL) in 0.45 % [...] INFECTIOUS DISEASE follow up. Won Dennis 1980 [id number] Date of Consult: 04/06/2025 Admission Date: 04/04/2025 [...] Driven Protocol, , Not Applicable, PRN, Leonora Shehperd MD cefTRIAXone (ROCEPHIN) 2,000 mg in sodium [...] MD, 20 mg at 04/06/25 0900 heparin 63491 units/250 mL (100 units/mL) in 0.45 % [...] Tibia Fibula Right With & Without Contrast [[id number]] Collected: 04/04/252256 Updated: 04/04/252302 Narrative: MRI TIBIA [...] represent a small area of phlegmonous change (pauxlf56 image 10) measuring approximately 1.6 cm which [...] MD 04/04/2025 11:00 PM EDT Workstation ID: [id number] Impression: 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 (Treated by ID in [place] Dr. Harris). Dr. Torres treated him with [...] MD 04/04/2025 11:00 PM EDT Workstation ID: [id number] I have personally reviewed the therapy plans: [...] MD 04/04/2025 11:00 PM EDT Workstation ID: [id number] Assessment & Plan Assessment & Plan Won [...] 4FR PICC placed by Rhoda Bonner RN [facility], tip verified by 3CG see LDA. 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 He has [...] was evaluated in the emergency department in [place], was discharged with instructions for follow-up. He [...] tablet by mouth Daily. 04/03/2025 Morning Lactobacillus-Inulin ([facility] Digestive [facility]) capsule Take 200 mg by mouth Daily. [...] MD 04/04/2025 11:00 PM EDT Workstation ID: [id number] Assessment: Right BKA infection 44-year-old male with [...] DISEASE CONSULT/INITIAL HOSPITAL VISIT Won Dennis 1980 [id number] Date of Consult: 04/05/2025 Admission Date: 04/04/2025 [...] Leonora Shepherd MD, 40 mg at 04/04/25 7594 sennosides-docusate (PERICOLACE) 8.6-50 MG per tablet 2 [...] MD, 20 mg at 04/05/25 09 heparin 74215 units/250 mL (100 units/mL) in 0.45 % [...] Tibia Fibula Right With & Without Contrast [[id number]] Collected: 04/04/252256 Updated: 04/04/252302 Narrative: MRI TIBIA [...] MD 04/04/2025 11:00 PM EDT Workstation ID: [id number] Impression: 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 (Treated by ID in [place] Dr. Harris). Dr. Torres treated him with [...] infection POSTOP DIAGNOSIS: Same. PROCEDURE: Right Right 88812: Secondary closure below-knee amputation SURGEON: Sushil Dean MD OPERATIVE TEAM: Cardiothoracic Anesthesia Technician: Susi Grullon RN Scrub Person: Mary Paredes Scrub Person Extra: Hortencia Toribio Other: Katt Gotti RN; Charis Neville RN ANESTHETIST: Anesthesiologist: Ulises Hoffman MD POLE PEELING 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 HELPER: Stan Casillas CRNA Student Nurse Mfts: Karol Albert SRNA ANESTHESIA: Choice ESTIMATED BLOOD [...] CULTURE (Canceled) Sushil Dean Jr., MD 04/08/25 6720 Description: RIGHT LEG DEEP WOUND FOR CULTURE [...] PM EDT [facility], [place] [address] OPERATIVE REPORT PATIENT NAME: Won Dennis DATE OF : 1980 PREOP DIAGNOSIS: Right Right below knee amputation stump infection POSTOP DIAGNOSIS: Same. PROCEDURE: Right Right 69273: Incision and drainage of surgical site infection 23154: Debridement of skin, subcutaneous tissue, muscle 01272: Wound vacuum-assisted closure SURGEON: Sushil Dean MD OPERATIVE TEAM: Cardiothoracic Anesthesia Technician: Anum Sanchez RN Scrub Person: Hortencia Toribio; Gerald Ivey [employer] OFFICER: Anesthesiologist: Luci Alonso DO ANESTHESIA: General ESTIMATED [...] this chart in the absence of a direct selling counselor. No orders to display RADIOLOGY: [x] Radiologist's [...] is discharging home with outpatient infusion at [facility]. He has an appointment with [facility] at 8:00 am tomorrow. They will do PICC line dressing changes. DEBRA has spoke with Dena at [facility] today multiple times to get [...] to get IV ABX at home with [facility]; however, Medicaid lapsed on 04/08. DEBRA was unaware until this morning that Medicaid has lapsed. Patient explained that he has Medicare A and B. CM spoke with KELLEE and given themhis Medicare number [id number], she sent it to Admission. DEBRA spoke with Kerri, with [facility], and explained that he had Medicare A and B. However, it will not cover home infusion. It will be $64.00 a day out of packet. Patients [facility] and it will cover the cost as an outpatient. He will need to go there every day for infusion. They will be able to do the patients' PICC line dressing changes and lab work. DEBRA called Dena [facility] Outpatient infusion center they can accept patient and start him. He is known for their facility. The Facility will need to run it through his insurance first. CM faxed the orders over to [facility] at [phone]. CM will follow up with them tomorrow at [facility] to make sure they received [...] 04/09/2025 2:51 PM EDT Continued Stay Note [facility] Patient Name: Won Dennis Today's Date: 04/09/2025 Admit Date: 04/04/2025 Plan: Home Discharge Plan Row Name 04/09/25 1311 Plan Plan Home Patient/Family in Agreement with Plan yes Plan Comments CM spoke with patient at bedside today. Wheelchair from [employer] is at bedside. Patient getting PICC line [...] note were not included. 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 Patient lives with and his [address] [place] [facility] 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 He has walker, cane, shower chair, and crutches. He requested a wheelchair for home. CM [facility]. He is not current with home health services. PCP is Dr. Jodran. Insurance is [facility] Medicaid [place]. Patient discharge plan is home with priavte transport. CM will follow for any discharge needs. Final Discharge Disposition Code 01 - home or self-care Continued Care and Services - Admitted Since 04/04/2025 No active coordination exists. Demographic Summary Row Name 04/07/25 1143 General Information Arrived From hospital Preferred Language Malagasy Functional Status Row Name 04/07/25 1143 Functional [...] Auto Differential (04/11/2025 3:40 AM EDT) [facility] WBC 7.87 3.40 - 10.80 10*3/mm3 04/11/2025 4:02 AM EDT [facility] RBC 4.70 4.14 - 5.80 10*6/mm3 04/11/2025 4:02 AM [facility] Hemoglobin 12.8(L) 13.0 - 17.7 g/dL [facility] Hematocrit 40.5 37.5 - 51.0 % 04/11/2025 4:02 AM [facility] MCV 86.2 79.0 - 97.0 fL 04/11/2025 4:[facility] MCH 27.2 26.6 - 33.0 pg 04/11/2025 4:02 AM [facility] MCHC 31.6 31.5 - 35.7 g/dL 04/11/2025 4:02 AM [facility] RDW 12.9 12.3 - 15.4 % 04/11/2025 4:02 AM [facility] RDW-SD 40.5 37.0 - 54.0 fl 04/11/2025 4:02 AM [facility] MPV 9.2 6.0 - 12.0 fL 04/11/2025 4:02 AM [facility] Platelets 267 140 - 450 10*3/mm3 04/11/2025 4:02 AM [facility] Neutrophil % 59.5 42.7 - 76.0 % 04/11/2025 4:02 AM [facility] Lymphocyte % 26.3 19.6 - 45.3 % 04/11/2025 4:02 AM [facility] Monocyte % 9.3 5.0 - 12.0 % 04/11/2025 4:[facility] Eosinophil % 4.1 0.3 - 6.2 % 04/11/2025 4:02 [facility] Basophil % 0.4 0.0 - 1.5 % 04/11/2025 4:02 [facility] Immature Grans % 0.4 0.0 - 0.5 % 04/11/2025 4:02 AM [facility] Neutrophils, Absolute 4.69 1.70 - 7.00 10*3/mm3 04/11/2025 4:02 AM EDT [facility] Lymphocytes, Absolute 2.07 0.70 - 3.10 10*3/mm3 04/11/2025 4:02 AM EDT [facility] Monocytes, Absolute 0.73 0.10 - 0.90 10*3/mm3 04/11/2025 4:02 AM EDT [facility] Eosinophils, Absolute 0.32 0.00 - 0.40 10*3/mm3 04/11/2025 4:02 AM EDT [facility] Basophils, Absolute 0.03 0.00 - 0.20 10*3/mm3 04/11/2025 4:02 AM EDT [facility] Immature Grans, Absolute 0.03 0.00 - 0.05 10*3/mm3 04/11/2025 4:02 AM EDT [facility] nRBC 0.0 0.0 - 0.2 /100 WBC 04/11/2025 4:02 AM EDT [facility] Blood Venipuncture / Unknown 04/11/2025 3:40 AM EDT 04/11/2025 3:59 AM EDT us Sushil Dean Jr., MD LAB BLOOD ORDERABLES Fi nal Result [facility]
[address] [place] [address], * (ABNORMAL) Comprehensive Metabolic Panel (04/11/2025 3:40 AM EDT) Glucose 108(H) 65 - 99 mg/dL 04/11/2025 4:19 AM EDT [facility] BUN 12.5 6.0 - 20.0 mg/dL 04/11/2025 4:19 AM EDT [facility] Creatinine 0.68(L) 0.76 - 1.27 mg/dL 04/11/2025 4:19 AM [facility] Sodium 140 136 - 145 mmol/L 04/11/2025 4:19 AM [facility] Potassium 3.8 3.5 - 5.2 mmol/L 04/11/2025 4:19 AM [facility] Chloride 105 98 - 107 mmol/L 04/11/2025 4:19 AM [facility] CO2 28.2 22.0 - 29.0 mmol/L 04/11/2025 4:19 AM [facility] Calcium 8.2(L) 8.6 - 10.5 mg/dL 04/11/2025 4:19 AM [facility] Total Protein 6.1 6.0 - 8.5 g/dL 04/11/2025 4:19 AM [facility] Albumin 3.1(L) 3.5 - 5.2 g/dL 04/11/2025 4:19 AM [facility] ALT (SGPT) 52(H) 1 - 41 U/L 04/11/2025 4:19 AM [facility] AST (SGOT) 40 1 - 40 U/L 04/11/2025 4:19 AM [facility] Alkaline Phosphatase 99 39 - 117 U/L 04/11/2025 4:19 AM [facility] Total Bilirubin 0.2 0.0 - 1.2 mg/dL 04/11/2025 4:19 AM [facility] Globulin 3.0 gm/dL 04/11/2025 4:19 AM [facility] Comment:Calculated Result A/G Ratio 1.0 g/dL 04/11/2025 4:19 AM [facility] BUN/Creatinine Ratio 18.4 7.0 - 25.0 04/11/2025 4:19 AM [facility] Anion Gap 6.8 5.0 - 15.0 mmol/L 04/11/2025 4:19 AM [facility] eGFR 117.5 >60.0 mL/min/1.7 3 04/11/2025 4:19 AM EDT [facility] Blood Venipuncture / Unknown 04/11/2025 3:40 AM EDT 04/11/2025 3:56 AM EDT [facility] - 04/11/2025 4:19 AM [...] include race as a factor Rosario [place] [employer] LAB BLOOD ORDERABLES Final Result [facility]
[address] [place] [address], * (ABNORMAL) CBC Auto Differential (04/10/2025 3:46 AM EDT) WBC 9.60 3.40 - 10.80 10*3/mm3 04/10/2025 3:56 AM EDT [facility] RBC 4.67 4.14 - 5.80 10*6/mm3 04/10/2025 3:56 AM EDT [facility] Hemoglobin 12.9(L) 13.0 - 17.7 g/dL 04/10/2025 3:56 AM EDT [facility] Hematocrit 40.1 37.5 - 51.0 % 04/10/2025 3:56 AM EDT [facility] MCV 85.9 79.0 - 97.0 fL 04/10/2025 3:56 AM EDT [facility] MCH 27.6 26.6 - 33.0 pg 04/10/2025 3:56 AM EDT [facility] MCHC 32.2 31.5 - 35.7 g/dL [facility] R[facility] 12.9 12.3 - 15.4 % 04/10/2025 3:56 AM [facility] RDW-SD 40.5 37.0 - 54.0 fl 04/10/2025 3:56 AM [facility] MPV 9.5 6.0 - 12.0 fL 04/10/2025 3:56 AM EDT [facility] Platelets 227 140 - 450 10*3/mm3 04/10/2025 3:56 [facility] Neutrophil % 59.1 42.7 - 76.0 % 04/10/2025 3:56 AM [facility] Lymphocyte % 29.0 19.6 - 45.3 % 04/10/2025 3:56 AM [facility] Monocyte % 8.1 5.0 - 12.0 % 04/10/2025 3:56 [facility] Eosinophil % 3.2 0.3 - 6.2 % 04/10/2025 3:56 [facility] Basophil % 0.4 0.0 - 1.5 % 04/10/2025 3:56 AM [facility] Immature Grans % 0.2 0.0 - 0.5 % 04/10/2025 3:56 AM [facility] Neutrophils, Absolute 5.67 1.70 - 7.00 10*3/mm3 04/10/2025 3:56 AM [facility] Lymphocytes, Absolute 2.78 0.70 - 3.10 10*3/mm3 04/10/2025 3:56 AM [facility] Monocytes, Absolute 0.78 0.10 - 0.90 10*3/mm3 04/10/2025 3:56 AM [facility] Eosinophils, Absolute 0.31 0.00 - 0.40 10*3/mm3 04/10/2025 3:56 AM [facility] Basophils, Absolute 0.04 0.00 [...] DO LAB BLOOD ORDERABLES Final Resul t [facility]
[address] [place] [address], * (ABNORMAL) Basic Metabolic Panel (04/10/2025 3:46 AM EDT) Glucose 125(H) 65 - 99 mg/dL 04/10/2025 4:20 AM EDT [facility] BUN 15.9 6.0 - 20.0 mg/dL 04/10/2025 4:20 AM EDT [facility] Creatinine 0.77 0.76 - 1.27 mg/dL 04/10/2025 4:20 AM EDT [facility] Sodium 137 136 - 145 mmol/L 04/10/2025 4:20 AM EDT [facility] Potassium 3.9 3.5 - 5.2 mmol/L 04/10/2025 4:20 AM EDT [facility] Chloride 102 98 - 107 mmol/L 04/10/2025 4:20 AM EDT [facility] CO2 26.9 22.0 - 29.0 mmol/L 04/10/2025 4:20 AM EDT [facility] Calcium 7.9(L) 8.6 - 10.5 mg/dL 04/10/2025 4:[facility] BUN/Creatinine Ratio 20.6 7.0 - 25.0 04/10/2025 4:20 AM EDT [facility] Anion Gap 8.1 5.0 - 15.0 mmol/L 04/10/2025 4:20 AM EDT [facility] eGFR 113.2 >60.0 mL/min/1.7 3 04/10/2025 4:20 AM EDT [facility] Blood Venipuncture / Unknown 04/10/2025 3:46 AM EDT 04/10/2025 3:52 AM EDT Narrative [facility] - 04/10/2025 4:20 AM EDT [...] ORDERABLES Final Resul t [facility]
[address] [place] [address], * Heparin Anti-Xa (04/10/2025 3:46 AM EDT) Heparin Anti-Xa (UFH) 0.35 0.30 - 0.70 IU/ml 04/10/2025 4:23 AM EDT [facility] Blood Venipuncture / Unknown 04/10/2025 3:46 AM EDT 04/10/2025 3:53 AM EDT Larisa Hamilton [facility] LAB BLOOD ORDERABLES Final R esult [facility]
[address] [place] [address], * Heparin Anti-Xa (04/09/2025 10:05 AM EDT) Heparin Anti-Xa (UFH) 0.36 0.30 - 0.70 IU/ml 04/09/2025 11:12 AM EDT [facility] Blood Venipuncture / Unknown 04/09/2025 10:05 AM EDT 04/09/2025 10:47 AM EDT Larisa Hamilton [facility] LAB BLOOD ORDERABLES Final R esult [facility]
[address] [place] [address], * (ABNORMAL) CBC Auto Differential (04/09/2025 4:18 AM EDT) WBC 11.00(H) 3.40 - 10.80 10*3/mm3 04/09/2025 4:50 AM EDT [facility] RBC 4.70 [...] - 33.0 pg 04/09/2025 4:50 AM EDT [facility] MCHC 32.2 31.5 - 35.7 g/dL 04/09/2025 4:50 AM EDT [facility] RDW 12.8 12.3 - 15.4 % 04/09/2025 4:50 AM [facility] RDW-SD 39.9 37.0 - 54.0 fl 04/09/2025 4:50 AM [facility] MPV 10.0 6.0 - 12.0 fL 04/09/2025 4:50 AM [facility] Platelets 211 140 - 450 10*3/mm3 04/09/2025 4:50 AM [facility] Neutrophil % 74.8 42.7 - 76.0 % 04/09/2025 4:50 AM [facility] Lymphocyte % 15.4(L) 19.6 - 45.3 % 04/09/2025 4:50 AM [facility] Monocyte % 8.5 5.0 - 12.0 % 04/09/2025 4:50 AM [facility] Eosinophil % 0.6 0.3 - 6.2 % 04/09/2025 4:50 AM [facility] Basophil % 0.4 0.0 - 1.5 % 04/09/2025 4:50 AM [facility] Immature Grans % 0.3 0.0 - 0.5 % 04/09/2025 4:50 AM [facility] Neutrophils, Absolute 8.23(H) 1.70 - 7.00 10*3/mm3 04/09/2025 4:50 AM [facility] Lymphocytes, Absolute 1.69 0.70 - 3.10 10*3/mm3 04/09/2025 4:50 AM [facility] Monocytes, Absolute 0.94(H) 0.10 - 0.90 10*3/mm3 04/09/2025 4:50 AM [facility] Eosinophils, Absolute 0.07 0.00 - 0.40 10*3/mm3 04/09/2025 4:50 AM [facility] Basophils, Absolute 0.04 0.00 - 0.20 10*3/mm3 04/09/2025 4:50 AM [facility] Immature Grans, Absolute 0.03 0.00 - 0.05 10*3/mm3 04/09/2025 4:50 AM EDT [facility] nRBC 0.0 0.0 - 0.2 /100 WBC 04/09/2025 4:50 AM EDT [facility] Blood Venipuncture / Unknown 04/09/2025 4:18 AM EDT 04/09/2025 4:31 AM EDT Sushil Dean Jr., MD LAB BLOOD ORDERABLES Fi nal Result [facility]
[address] [place] [address], * Heparin Anti-Xa (04/09/2025 4:18 AM EDT) Heparin Anti-Xa (UFH) 0.41 0.30 - 0.70 IU/ml 04/09/2025 4:53 AM EDT [facility] Blood Venipuncture / Unknown 04/09/2025 4:18 AM EDT 04/09/2025 4:31 AM EDT Una LundbergD LAB BLOOD ORDERABLES Final R esult [facility]
[address] [place] [address], * (ABNORMAL) Basic Metabolic Panel (04/09/2025 4:18 [...] 4:18 AM EDT 04/09/2025 4:29 AM EDT [facility] - 04/09/2025 5:33 AM EDT [...] BLOOD ORDERABLES nal Result [facility]
[address] [place] [address], * Wound Culture - Swab, Leg, Right [...] GENERAL ORDERABLES Final Result Performing Organization Address City/[facility]/ZIP Co de Phone Number [facility]
[address] [place] [address], [facility]
[address] [place] [address], * Anaerobic Culture - Swab, Leg, Right (04/08/2025 3:40 PM EDT) Pathologist [facility] Anaerobic Culture No anaerobes isolated at 5 days ALIZA 04/13/2025 7:24 AM EDT [facility] Swab Structure of right lower limb / Unknown 04/08/2025 3:40 PM EDT 04/08/2025 8:05 PM EDT Sushil Dean Jr., MD MICROBIOLOGY - GENERAL ORDERABLES Final Result [facility]
[address] [place] [address], * Scan Slide (04/08/2025 8:41 AM EDT) [...] ORDERABLES Final R esult [facility]
[address] [place] [address], * (ABNORMAL) CBC Auto Differential (04/08/2025 8:41 AM EDT) WBC 10.07 3.40 - 10.80 10*3/mm3 04/08/2025 11:02 AM EDT [facility] RBC 5.01 4.14 - 5.80 10*6/mm3 04/08/2025 11:02 AM EDT [facility] Hemoglobin 14.0 13.0 - 17.7 g/dL 04/08/2025 11:02 AM EDT [facility] Hematocrit 42.7 37.5 - 51.0 % 04/08/2025 11:02 AM EDT [facility] MCV 85.2 79.0 - 97.0 fL 04/08/2025 11:02 AM EDT [facility] MCH 27.9 26.6 - 33.0 pg 04/08/2025 11:02 AM EDT [facility] MCHC 32.8 31.5 - 35.7 g/dL 04/08/2025 11:02 AM EDT [facility] RDW 12.6 12.3 - 15.4 % 04/08/2025 11:02 AM EDT [facility] RDW-SD 38.9 37.0 - 54.0 fl 04/08/2025 11:02 AM [facility] MPV 11.0 6.0 - 12.0 fL 04/08/2025 11:02 AM [facility] Platelets 118(L) 140 - 450 10*3/mm3 04/08/2025 11:02 AM [facility] Neutrophil % 85.1(H) 42.7 - 76.0 % 04/08/2025 11:02 AM [facility] Lymphocyte % 9.3(L) 19.6 - 45.3 % 04/08/2025 11:02 AM [facility] Monocyte % 4.6(L) 5.0 - 12.0 % 04/08/2025 11:02 AM [facility] Eosinophil % 0.3 0.3 - 6.2 % 04/08/2025 11:02 AM [facility] Basophil % 0.2 0.0 - 1.5 % 04/08/2025 11:02 AM [facility] Immature Grans % 0.5 0.0 - 0.5 % 04/08/2025 11:02 AM [facility] Neutrophils, Absolute 8.57(H) 1.70 - 7.00 10*3/mm3 04/08/2025 11:02 AM [facility] Lymphocytes, Absolute 0.94 0.70 - 3.10 10*3/mm3 04/08/2025 11:02 AM [facility] Monocytes, Absolute 0.46 0.10 - 0.90 10*3/mm3 04/08/2025 11:02 AM [facility] Eosinophils, Absolute 0.03 0.00 - 0.40 10*3/mm3 04/08/2025 11:02 AM [facility] Basophils, Absolute 0.02 0.00 - 0.20 10*3/mm3 04/08/2025 11:02 AM [facility] Immature Grans, Absolute 0.05 0.00 - 0.05 10*3/mm3 04/08/2025 11:02 AM EDT [facility] nRBC 0.0 0.0 - 0.2 /100 WBC 04/08/2025 11:02 AM EDT [facility] Blood Venipuncture / Unknown 04/08/2025 8:41 AM EDT 04/08/2025 9:10 AM EDT Una Perla PharmD LAB BLOOD ORDERABLES Final R esult [facility]
[address] [place] [address], * (ABNORMAL) Basic Metabolic Panel (04/08/2025 8:41 [...] AM EDT 04/08/2025 9:09 AM EDT Narrative [facility] - 04/08/2025 9:51 AM EDT [...] ORDERABLES Fi nal Result Performing Organization Address City/[facility]/ZIP Co de Phone Number [facility]
[address] [place] [address], * Heparin Anti-Xa (04/08/2025 8:41 AM EDT) Heparin Anti-Xa (UFH) 0.33 0.30 - 0.70 IU/ml 04/08/2025 9:40 AM EDT [facility] Blood Venipuncture / Unknown 04/08/2025 8:41 AM EDT 04/08/2025 9:10 AM EDT us Sushil Dean Jr., MD LAB BLOOD ORDERABLES Fi nal Result Performing Organization Address City/[facility]/ZIP Co de Phone Number [facility]
[address] [place] [address], [place] [phone] * [place] C Arm During Surgery (04/07/2025 [...] GENERAL ORDERABLES Final Result Performing Organization Address City/[facility]/ZIP Co de Phone Number [facility]
[address] [place] [address], [facility]
[address] [place] [address], * Anaerobic Culture - Swab, Leg, Right (04/07/2025 9:14 PM EDT) Anaerobic Culture No anaerobes isolated at 5 days ALIZA 04/13/2025 7:21 AM EDT [facility] Swab Structure of right lower limb / Unknown Collection / Unknown 04/07/2025 9:14 PM EDT 04/08/2025 4:36 AM EDT us Sushil Dean Jr., MD MICROBIOLOGY - GENERAL ORDERABLES Final Result [facility]
[address] [place] [address], * Anaerobic Culture - Tissue, Leg (04/07/2025 9:13 PM EDT) Anaerobic Culture No anaerobes isolated at 5 days ALIZA 04/13/2025 7:21 AM EDT [facility] Tissue Lower limb structure / Unknown Collection / Unknown 04/07/2025 9:13 PM EDT 04/08/2025 4:54 AM EDT Jason Álvarez DO MICROBIOLOGY - GENERAL ORDERABLE S Final Result [facility]
[address] [place] [address], * Tissue / Bone Culture - Tissue, Leg, Right (04/07/2025 9:13 PM EDT) [facility] Tissue Culture No growth at 3 [...] Final Result [facility]
[address] [place] [address], [facility]
[address] [place] [address], * (ABNORMAL) Wound Culture - Swab, Leg, [...] Final Result [facility]
[address] [place] [address], [place] [phone] [facility]
[address] [place] [address], [place] [phone] * Anaerobic Culture - Swab, Leg, Right (04/07/2025 9:07 PM EDT) Anaerobic Culture No anaerobes isolated at 5 days ALIZA 04/13/2025 7:21 AM EDT [facility] Swab Structure of right lower limb / Unknown Collection / Unknown 04/07/2025 9:07 PM EDT 04/08/2025 4:36 AM EDT us Sushil Dean Jr., MD MICROBIOLOGY - GENERAL ORDERABLES Final Result [facility]
[address] [place] [address], * Heparin Anti-Xa (04/07/2025 9:10 AM EDT) [facility] Heparin Anti-Xa (UFH) 0.30 0.30 - 0.70 IU/ml 04/07/2025 10:12 AM EDT [facility] Blood Venipuncture / Unknown 04/07/2025 9:10 AM EDT 04/07/2025 9:38 AM EDT Una LundbergD LAB BLOOD ORDERABLES Final R esult [facility]
[address] [place] [address], [place] [phone] * (ABNORMAL) CBC Auto Differential (04/07/2025 9:10 AM EDT) [facility] WBC 8.63 3.40 - 10.80 10*3/mm3 04/07/2025 9:50 AM EDT [facility] RBC 5.23 4.14 - 5.80 10*6/mm3 04/07/2025 9:50 AM EDT [facility] Hemoglobin 14.7 13.0 - 17.7 g/dL 04/07/2025 9:50 AM EDT [facility] Hematocrit 44.8 37.5 - 51.0 % 04/07/2025 9:50 AM EDT [facility] MCV 85.7 79.0 - 97.0 fL 04/07/2025 9:50 AM EDT [facility] MCH 28.1 26.6 - 33.0 pg 04/07/2025 9:50 AM EDT [facility] MCHC 32.8 31.5 - 35.7 g/dL 04/07/2025 9:50 AM EDT [facility] RDW 12.8 12.3 - 15.4 % 04/07/2025 9:50 AM [facility] RDW-SD 39.9 37.0 - 54.0 fl 04/07/2025 9:50 AM [facility] MPV 10.8 6.0 - 12.0 fL 04/07/2025 9:50 AM [facility] Platelets 149 140 - 450 10*3/mm3 04/07/2025 9:50 AM [facility] Neutrophil % 66.7 42.7 - 76.0 % 04/07/2025 9:50 AM [facility] Lymphocyte % 20.5 19.6 - 45.3 % 04/07/2025 9:50 AM [facility] Monocyte % 9.8 5.0 - 12.0 % 04/07/2025 9:50 AM [facility] Eosinophil % 2.1 0.3 - 6.2 % 04/07/2025 9:50 AM [facility] Basophil % 0.3 0.0 - 1.5 % 04/07/2025 9:50 AM [facility] Immature Grans % 0.6(H) 0.0 - 0.5 % 04/07/2025 9:50 AM [facility] Neutrophils, Absolute 5.75 1.70 - 7.00 10*3/mm3 04/07/2025 9:50 AM [facility] Lymphocytes, Absolute 1.77 0.70 - 3.10 10*3/mm3 04/07/2025 9:50 AM [facility] Monocytes, Absolute 0.85 0.10 - 0.90 10*3/mm3 04/07/2025 9:50 AM [facility] Eosinophils, Absolute 0.18 0.00 - 0.40 10*3/mm3 04/07/2025 9:50 AM [facility] Basophils, Absolute 0.03 0.00 - 0.20 10*3/mm3 04/07/2025 9:50 AM [facility] Immature Grans, Absolute 0.05 0.00 - 0.05 10*3/mm3 04/07/2025 9:50 AM EDT [facility] nRBC 0.0 0.0 - 0.2 /100 WBC 04/07/2025 9:50 AM EDT [facility] Blood Venipuncture / Unknown 04/07/2025 9:10 AM EDT 04/07/2025 9:38 AM EDT Jasonalfonso Álvarez DO LAB BLOOD ORDERABLES Final Resul t [facility]
[address] [place] [address], * (ABNORMAL) Basic Metabolic Panel (04/07/2025 9:10 [...] - 10.5 mg/dL 04/07/2025 10:19 AM EDT [facility] BUN/Creatinine Ratio 17.0 7.0 - 25.0 04/07/2025 10:19 AM EDT [facility] Anion Gap 9.2 5.0 - 15.0 mmol/L 04/07/2025 10:19 AM EDT [facility] eGFR 113.2 >60.0 mL/min/1.7 3 04/07/2025 10:19 AM EDT [facility] Blood Venipuncture [...] POWELL LAB BLOOD ORDERABLES Final Resul t [facility]
[address] [place] [address], * MRI Tibia Fibula Right With & [...] [place] 04/07/2025 9:58 AM EDT Workstation ID: [id number] Narrative 04/07/2025 9:58 AM EDT MRI TIBIA [...] [place] 04/07/2025 9:58 AM EDT Workstation ID: [id number] us Sushil Dean Jr., MD IM MRI ORDERABLES Mary Beth l Result * Heparin Anti-Xa (04/07/2025 1:42 AM EDT) [facility] Heparin Anti-Xa (UFH) 0.38 0.30 - 0.70 IU/ml 04/07/2025 2:14 AM EDT [facility] Blood Venipuncture / Unknown 04/07/2025 1:42 AM EDT 04/07/2025 1:54 AM EDT Chelsie Turpin [facility] LAB BLOOD ORDERABLES Final R esult [facility]
[address] [place] [address], * Heparin Anti-Xa (04/06/2025 7:16 PM EDT) [facility] Heparin Anti-Xa (UFH) 0.33 0.30 - 0.70 IU/ml 04/06/2025 7:50 PM EDT [facility] Blood Venipuncture / Unknown 04/06/2025 7:16 PM EDT 04/06/2025 7:35 PM EDT Cherri Rogerio RPH LAB BLOOD ORDERABLES Final Res ult Performing Organization Address City/[facility]/ZIP Co de Phone Number [facility]
[address] [place] [address], * Potassium (04/06/2025 7:16 PM EDT) Potassium 4.0 3.5 - 5.2 mmol/L 04/06/2025 7:53 PM EDT [facility] Blood Venipuncture / Unknown 04/06/2025 7:16 PM EDT 04/06/2025 7:35 PM EDT Jason Álvarez DO LAB BLOOD ORDERABLES Final Resul t Performing Organization Address [facility] de Phone Number [facility]
[address] [place] [address], * (ABNORMAL) Heparin Anti-Xa (04/06/2025 12:36 PM EDT) Heparin Anti-Xa (UFH) 0.24(L) 0.30 - 0.70 IU/ml 04/06/2025 1:23 PM EDT [facility] Blood Venipuncture / Unknown 04/06/2025 12:36 PM EDT 04/06/2025 1:07 PM EDT Una LundbergD LAB BLOOD ORDERABLES Final R esult Performing Organization Address City/[facility] Co de Phone Number [facility]
[address] [place] [address], * (ABNORMAL) Heparin Anti-Xa (04/06/2025 3:42 AM EDT) Pathologist [facility] Heparin Anti-Xa (UFH) 0.25(L) 0.30 - 0.70 IU/ml 04/06/2025 5:30 AM EDT [facility] Blood Venipuncture / Unknown 04/06/2025 3:42 AM EDT 04/06/2025 4:59 AM EDT Chelsie Turpin [facility] LAB BLOOD ORDERABLES Final R esult [facility]
[address] [place] [address], * (ABNORMAL) Basic Metabolic Panel (04/06/2025 3:42 AM EDT) Pathologist [facility] Glucose 94 65 - 99 mg/dL 04/06/2025 [...] 3:42 AM EDT 04/06/2025 5:20 AM EDT [facility]ORY - 04/06/2025 5:59 AM EDT [...] ORDERABLES Final Resul t [facility]
[address] [place] [address], * (ABNORMAL) CBC Auto Differential (04/06/2025 3:41 [...] 79.0 - 97.0 fL 04/06/2025 5:04 AM [facility] MCH 27.4 26.6 - 33.0 pg 04/06/2025 5:04 AM [facility] MCHC 31.8 31.5 - 35.7 g/dL 04/06/2025 5:04 AM [facility] RDW 12.8 12.3 - 15.4 % 04/06/2025 5:04 AM [facility] RDW-SD 40.0 37.0 - 54.0 fl 04/06/2025 5:04 AM [facility] MPV 11.7 6.0 - 12.0 fL 04/06/2025 5:04 AM [facility] Platelets 115(L) 140 - 450 10*3/mm3 04/06/2025 5:04 AM [facility] Neutrophil % 65.3 42.7 - 76.0 % 04/06/2025 5:04 AM [facility] Lymphocyte % 20.5 19.6 - 45.3 % 04/06/2025 5:04 AM [facility] Monocyte % 11.8 5.0 - 12.0 % 04/06/2025 5:04 AM [facility] Eosinophil % 1.8 0.3 - 6.2 % 04/06/2025 5:04 AM [facility] Basophil % 0.3 0.0 - 1.5 % 04/06/2025 5:04 AM [facility] Immature Grans % 0.3 0.0 - 0.5 % 04/06/2025 5:04 AM [facility] Neutrophils, Absolute 7.09(H) 1.70 - 7.00 10*3/mm3 04/06/2025 5:04 AM [facility] Lymphocytes, Absolute 2.23 0.70 - 3.10 10*3/mm3 04/06/2025 5:04 AM [facility] Monocytes, Absolute 1.28(H) 0.10 [...] ORDERABLES Final Resul t Performing Organization Address City/[facility] Co de Phone Number [facility]
[address] [place] [address], [place] [phone] * Heparin Anti-Xa (04/05/2025 8:43 PM EDT) Pathologist [facility] Heparin Anti-Xa (UFH) 0.38 0.30 - 0.70 IU/ml 04/05/2025 9:09 PM EDT [facility] Blood Venipuncture / Unknown 04/05/2025 8:43 PM EDT 04/05/2025 8:55 PM EDT us Cherri Beatty [facility] LAB BLOOD ORDERABLES Final Res ult Performing Organization Address City/[facility]/ZIP Co de Phone Number [facility]
[address] [place] [address], [place] [phone] * CK (04/05/2025 12:15 PM EDT) Creatine Kinase 140 20 - 200 U/L 04/05/2025 1:31 PM EDT [facility] Blood Venipuncture / Unknown 04/05/2025 12:15 PM EDT 04/05/2025 1:03 PM EDT Carlton Mead MD LAB BLOOD ORDERABLES Final R esult Performing Organization Address City/[facility]/ZIP Co de Phone Number [facility]
[address] [place] [address], * (ABNORMAL) Heparin Anti-Xa (04/05/2025 12:15 PM EDT) Heparin Anti-Xa (UFH) 0.17(L) 0.30 - 0.70 IU/ml 04/05/2025 1:21 PM EDT [facility] Blood Venipuncture / Unknown 04/05/2025 12:15 PM EDT 04/05/2025 1:04 PM EDT Una Perla PharmD LAB BLOOD ORDERABLES Final R esult Performing Organization Address City/[facility] Co de Phone Number [facility]
[address] [place] [address], * (ABNORMAL) aPTT (04/05/2025 3:54 AM EDT) [...] 0.5 U/ml are 60 to 70 seconds. [employer] LAB BLOOD ORDERABLES Final R esult [facility]
[address] [place] [address], * Heparin Anti-Xa (04/05/2025 3:54 AM EDT) Pathologist [facility] Heparin Anti-Xa (UFH) 0.30 0.30 - 0.70 IU/ml 04/05/2025 4:32 AM EDT [facility] Blood Venipuncture / Unknown 04/05/2025 3:54 AM EDT 04/05/2025 4:15 AM EDT [employer] LAB BLOOD ORDERABLES Final R esult Performing Organization Address City/[facility]/ZIP Co de Phone Number [facility]
[address] [place] [address], * (ABNORMAL) CBC Auto Differential (04/05/2025 3:54 AM EDT) [facility] WBC 11.18(H) 3.40 - 10.80 10*3/mm3 [...] - 33.0 pg 04/05/2025 4:20 AM EDT [facility] MCHC 32.8 31.5 - 35.7 g/dL 04/05/2025 4:20 AM [facility] RDW 12.9 12.3 - 15.4 % 04/05/2025 4:20 AM [facility] RDW-SD 39.7 37.0 - 54.0 fl 04/05/2025 4:20 AM [facility] MPV 10.2 6.0 - 12.0 fL 04/05/2025 4:20 AM [facility] Platelets 160 140 - 450 10*3/mm3 04/05/2025 4:20 AM [facility] Neutrophil % 73.5 42.7 - 76.0 % 04/05/2025 4:20 AM [facility] Lymphocyte % 14.0(L) 19.6 - 45.3 % 04/05/2025 4:20 AM [facility] Monocyte % 11.0 5.0 - 12.0 % 04/05/2025 4:20 AM [facility] Eosinophil % 0.8 0.3 - 6.2 % 04/05/2025 4:20 AM [facility] Basophil % 0.3 0.0 - 1.5 % 04/05/2025 4:20 AM [facility] Immature Grans % 0.4 0.0 - 0.5 % 04/05/2025 4:20 AM [facility] Neutrophils, Absolute 8.23(H) 1.70 - 7.00 10*3/mm3 04/05/2025 4:20 AM [facility] Lymphocytes, Absolute 1.56 0.70 - 3.10 10*3/mm3 04/05/2025 4:20 AM [facility] Monocytes, Absolute 1.23(H) 0.10 - 0.90 10*3/mm3 04/05/2025 4:20 AM [facility] Eosinophils, Absolute 0.09 0.00 - 0.40 10*3/mm3 04/05/2025 4:20 AM [facility] Basophils, Absolute 0.03 0.00 [...] ORDERABLES Final R esult [facility]
[address] [place] [address], * (ABNORMAL) Basic Metabolic Panel (04/05/2025 3:54 AM EDT) Glucose 152(H) 65 - 99 mg/dL 04/05/2025 4:40 AM EDT [facility] BUN 17.3 6.0 - 20.0 mg/dL 04/05/2025 4:40 AM EDT [facility] Creatinine 0.92 0.76 - [...] - 29.0 mmol/L 04/05/2025 4:40 AM EDT [facility] Calcium 7.8(L) 8.6 - 10.5 mg/dL 04/05/2025 4:40 AM EDT [facility] BUN/Creatinine Ratio 18.8 7.0 - 25.0 04/05/2025 4:40 AM EDT [facility] Anion Gap 9.0 5.0 - 15.0 mmol/L 04/05/2025 4:40 AM EDT [facility] eGFR 105.2 >60.0 mL/min/1.7 3 04/05/2025 4:40 AM EDT [facility] Blood Venipuncture / Unknown 04/05/2025 3:54 AM EDT 04/05/2025 4:15 AM EDT [facility] - 04/05/2025 4:40 AM [...] MD LAB BLOOD ORDERABLES Final Re sult [facility]
[address] [place] [address], * (ABNORMAL) aPTT (04/05/2025 12:18 AM EDT) PTT 33.6(L) 60.0 - 90.0 seconds 04/05/2025 12:53 AM EDT [facility] Blood Venipuncture / Unknown 04/05/2025 12:18 AM EDT 04/05/2025 12:37 AM EDT [facility] - 04/05/2025 12:53 AM EDT PTT = The equivalent PTT values for the therapeutic range of heparin levels at 0.3 to 0.5 U/ml are 60 to 70 seconds. [employer] LAB BLOOD ORDERABLES Final R esult Performing Organization Address City/[facility]/ZIP Co de Phone Number [facility]
[address] [place] [address], * (ABNORMAL) Protime-INR (04/05/2025 12:18 AM EDT) Protime 15.9(H) 12.2 - 15.3 Seconds 04/05/2025 12:53 AM EDT [facility] INR 1.19(H) 0.89 - 1.12 04/05/2025 12:53 AM EDT [facility] Blood Venipuncture / Unknown 04/05/2025 12:18 AM EDT 04/05/2025 12:37 AM EDT [employer] LAB BLOOD ORDERABLES Final R esult Performing Organization Address [facility] Co de Phone Number [facility]
[address] [place] [address], * Heparin Anti-Xa (04/05/2025 12:18 AM EDT) Heparin Anti-Xa (UFH) 0.39 0.30 - 0.70 IU/ml 04/05/2025 12:54 AM EDT [facility] Blood Venipuncture / Unknown 04/05/2025 12:18 AM EDT 04/05/2025 12:37 AM EDT [employer] LAB BLOOD ORDERABLES Final R esult Performing Organization Address City/[facility] Co de Phone Number [facility]
[address] [place] [address], * MRI Tibia Fibula Right With & Without Contrast (04/04/2025 5:54 PM EDT) Anatomical Region Laterality Modality Lower Extremities, [facility] 04/04/2025 10:5 7 PM EDT Impressions [...] MD 04/04/2025 11:00 PM EDT Workstation ID: [id number] Narrative 04/04/2025 11:00 PM EDT MRI TIBIA [...] MD 04/04/2025 11:00 PM EDT Workstation ID: [id number] Leonora Shepherd MD IMG MRI ORDERABLES Final Resu lt * POC Creatinine (04/04/2025 2:49 PM EDT) Creatinine 1.10 0.60 - 1.30 mg/dL 04/07/2025 7:14 PM EDT [facility] Comment:Serial Number: [id number] 7Operator: [id number] Venous Blood 04/04/2025 2:49 PM EDT 04/07/2025 7:14 PM EDT Jason Álvarez DO POINT OF CARE TEST ORDERABLES Fi nal Result [facility]
[address] [place] [address], * (ABNORMAL) CBC Auto Differential (04/04/2025 2:47 PM EDT) [facility] WBC 12.72(H) 3.40 - 10.80 10*3/mm3 [...] - 15.4 % 04/04/2025 2:56 PM EDT [facility] RDW-SD 40.3 37.0 - 54.0 [...] - 45.3 % 04/04/2025 2:56 PM EDT [facility] Monocyte % 11.2 5.0 - 12.0 % 04/04/2025 2:56 PM EDT [facility] Eosinophil % 0.4 0.3 - 6.2 % 04/04/2025 2:56 PM EDT [facility] Basophil % 0.2 0.0 - 1.5 % 04/04/2025 2:56 PM EDT [facility] Immature Grans % 0.2 0.0 - 0.5 % 04/04/2025 2:56 PM EDT [facility] Neutrophils, Absolute 9.52(H) 1.70 - 7.00 10*3/mm3 04/04/2025 2:56 PM EDT [facility] Lymphocytes, Absolute 1.66 0.70 - 3.10 10*3/mm3 04/04/2025 2:56 PM EDT [facility] Monocytes, Absolute 1.43(H) 0.10 - 0.90 10*3/mm3 04/04/2025 2:56 PM EDT [facility] Eosinophils, Absolute 0.05 0.00 - 0.40 10*3/mm3 04/04/2025 2:56 PM EDT [facility] Basophils, Absolute 0.03 [...] ORDERABLES Fin al Result [facility]
[address] [place] [address], * (ABNORMAL) C-reactive Protein (04/04/2025 2:47 PM EDT) [facility] C-Reactive Protein 8.57(H) 0.00 - 0.50 mg/dL 04/04/2025 3:26 PM EDT [facility] Blood Venipuncture / Unknown 04/04/2025 2:47 PM EDT 04/04/2025 2:52 PM EDT [facility] ORDERAB[facility] Fin al Result Performing Organization Address City/[facility]/ZIP Co de Phone Number [facility]
[address] [place] [address], * (ABNORMAL) Sedimentation Rate (04/04/2025 2:47 PM EDT) [facility] Sed Rate 51(H) 0 - 15 mm/hr 04/04/2025 3:06 PM EDT [facility] Blood Venipuncture / Unknown 04/04/2025 2:47 PM EDT 04/04/2025 2:52 PM EDT [facility] BLOOD ORDERABLES Fin al Result Performing Organization Address City/[facility] Co de Phone Number [facility]
[address] [place] [address], * Comprehensive Metabolic Panel (04/04/2025 2:47 PM EDT) [facility] Glucose 90 65 - 99 mg/dL [...] - 10.5 mg/dL 04/04/2025 3:26 PM T [facility] Total Protein 7.3 6.0 - 8.5 g/dL 04/04/2025 3:26 PM EDT [facility] Albumin 4.1 3.5 - 5.2 g/dL 04/04/2025 3:26 PM T [facility] ALT (SGPT) 26 1 - 41 U/L 04/04/2025 3:26 PM [facility] AST (SGOT) 25 1 - 40 U/L 04/04/2025 3:26 PM [facility] Alkaline Phosphatase 106 39 - 117 U/L 04/04/2025 3:26 PM T [facility] Total Bilirubin 1.0 0.0 - 1.2 mg/dL 04/04/2025 3:26 PM T [facility] Globulin 3.2 gm/dL 04/04/2025 3:26 PM [facility] Comment:Calculated Result A/G Ratio 1.3 g/dL 04/04/2025 3:26 PM [facility] BUN/Creatinine Ratio 19.5 7.0 - 25.0 04/04/2025 3:26 PM [facility] Anion Gap 10.7 5.0 - 15.0 mmol/L 04/04/2025 3:26 PM [facility] eGFR 102.5 >60.0 mL/min/1.7 3 04/04/2025 3:26 PM [facility] Blood Venipuncture / Unknown [...] ORDERABLES Fin al Result [facility]
[address] [place] [address], documented in this encounter Visit Diagnoses Diagnosis [...] Salazar, KELL)1943 (Given - Provider: Anahy Marcelino, [employer])[id number] (Canceled Entry - Provider: Anahy Marcelino [employer] - Comment: previously given) [id number] (Given - [...] Continuous Medication Order 04/09/2025 04/10/2025 04/11/2025 heparin 75719 units/250 mL (100 units/mL) in 0.45 % [...] as of this encounter Care Teams Home Health Travel Ot Relationship Specialty Start Date End Date Provider, [place] [address] PCP - General 05/09/23 documented as of this encounter
--- OUTSIDE RECORDS SUMMARY | 2025-04-07 19:36 | XMS_ITS | Encounter Summary ---
Author Organization [facility] Address [address] [place] [address] Care Team Providers Care Horseradish Grinder Name Role Phone Provider, No Known Primary Care Provider Unavail able Reason for Visit * Auth/Cert Specialty Diagnoses / Procedures Referred By Bulmaro muniz Referred To Contact Diagnoses Right BKA infection Referral ID Status Reason Start Date Expiration Date Visits Re quested Visits Authorized [id number] 1 1 Encounter Details Date Type Department Care Team (Late st Contact Info) Description 04/07/2025 8:36 PM EDT Anesthesia Event [facility] OR [address] [place] [address] Luci Alonso DO [address] [place] [address] Anesthesia Record Procedure Summary Procedure Name Responsible Anesthesiologist Anesthesia Start Time Anesthesia Stop Time LEG DEBRIDEMENT, IRRIGATION (Right: Leg Lower) Luci Alonso DO 04/07/25203504/07/252149 Events Date Time Event Comment 04/07/2025 1724 1938 AN Equip Check 2035 An Start The patient was reevaluated immediately before moderate or deep sedation use and before anesthesia induction. 2035 An Start Data 2040 An Induction 2042 An Intubation 2141 An Extubation 2143 an stop data 2149 Handoff to RN The following has been completed: 1. Identification of Patient, hrerera family member(s) or patient surrogate 2. Identification of the responsible Practitioner (primary service) 3. Discussion of the pertinent/attainable medical history 4. Discussion of the surgical/procedure course (procedure, reason for surgery, procedure performed) 5. Intraoperative anesthetic management and issue/concerns to include things such as airway, hemodynamics, narcotic, sedation level and paralytic management and intravenous fluids/blood products and urine output during the procedure 6. Expectations/Plans for the early post-procedure period to include things such as anticipated course (anticipatory guidance), complications, need for laboratory or ECG and medication administration 7. Opportunity for questions and acknowledgment of understanding of report from the receiving PACU/ICU team 2150 An Stop Meds Name Total propofol 10 MG/ML 310 mg lidocaine PF 1% 1 % 50 mg Succinylcholine Chloride 200 MG/10ML 140 mg dexAMETHasone 4 MG/ML 4 mg ondansetron 2 mg/mL 4 mg fentaNYL citrate (PF) 100 MCG/2ML 100 mc g phenylephrine 10 MG/ML 200 mcg ePHEDrine Sulfate (Pressors) 50 MG/ML 15 mg vancomycin IVPB 2000 mg in 0.9% Sodium C hloride 500 mL 2 g dexmedetomidine (PRECEDEX) injection 80 mcg/20 mL 32 mcg phenylephrine (ROMARIO-SYNEPHRIN E) 50 mg in sodium chloride 0.9 % 250 mL infusion 1.94 mg midazolam 2 MG/2ML 2 mg rocuronium 50 MG/5ML 30 mg sugammadex (BRIDION) 200 mg/2 mL injecti on 200 mg lactated ringers infusion 1,050 mL * Agents Name O2 N2O Air Sevoflurane Inspired Sevoflurane * Blood No blood administrations on file. Lines, Drains, and Airways Type Details Placement Removal Peripheral IV Placement Date: 04/05/25; Placement Time: 002; Change Due: 04/09/25; Catheter Size: 20 G; Orientation: Anterior, Left; Location: Forearm; Site Prep: Chlorhexidine; Technique: Anatomical landmarks; Inserted by: Mary Christine RN; Insertion Attempts: 1; Patient Tolerance: Tolerated well 04/05/25 0025 by Mary Christine, RN NPWT (Negative Pressure Wound Therapy) 04/07/25; RIGHT LEG 04/07/25 0000 by Anum Sanchez RN Peripheral IV Placement Date: 04/04/25; Placement Time: 1450; Catheter Size: 20 G; Orientation: Left; Location: Antecubital; Site Prep: Chlorhexidine; Local Anes: None; Technique: Anatomical landmarks; Inserted by: MAURICIO; Insertion Attempts: 1; Patient Tolerance: Tolerated well; Removal Date: 04/09/25; Removal Time: 1000 04/04/25 1451 by Mary Newell RN 04/09/25 1000 by Shirley Hart RN Wound 04/07/25; N; Right; lateral; knee; Surgical; 04/08/25 04/07/25 0000 by Anum Sanchez RN 04/08/25 0000 by Susi Grullon RN Wound 04/07/25; N; Right; anterior; leg; 04/08/25 04/07/25 0000 by Anum Sanchez RN 04/08/25 0000 by Susi Grullon RN ETT Placement Date: 04/07/25; Placement Time: 2042 (created via procedure documentation); Blade Size: (x blade); Removal Date: 04/07/25; Removal Time: 214104/07/252042 by Luci Alonso DO 04/07/252141 by Luci Alonso DO documented in this encounter Social History Tobacco Use Types Packs/Day Years Used Date Smoking Tobacco: Never Smokeless Tobacco: Never Alcohol Use Standard Drinks/Week Comments Not Currently 0 (1 standard drink = 0.6 oz pur e alcohol) [facility] Utilities Answer Date Recorded In the past 12 months has [employer], gas, oil, or water [employer] threatened to shut off services in your [...] or training? Not on file Preferred Language Faroese 04/07/2025 Sex and Gender Information Value Date Recorded Sex Assigned at Not on file Legal Sex Male 7:30 PM EDT Gender Identity Not on file Sexual Orientation Not on file documented as of this encounter Progress Notes * Luci Alonso DO - 04/08/2025 12:13 AM EDT Addendum created 04/08/25 0013 by Luci Alonso DO Intraprocedure Meds edited documented in this encounter OR Notes * Anesthesia Postprocedure Evaluation - Luci Alonso DO - 04/07/2025 9:50 PM EDT Patient: Won Dennis Procedure Summary Date: 04/07/25 Room / Location: [facility] / [facility] Anesthesia Start: 2035 Anesthesia Stop: 2149 Procedures: RIGHT LEG DEBRIDEMENT, IRRIGATION, (Right: Leg Lower) WOUND VACUUM ASSISTED CLOSURE (Right: Leg Lower) 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 Post Anesthesia Care and Evaluation Patient location during evaluation: PACU Patient participation: complete - patient participated Level of consciousness: awake and alert Pain management: adequate Airway patency: patent Anesthetic complications: No anesthetic complications PONV Status: none Cardiovascular status: hemodynamically stable and acceptable Respiratory status: nonlabored ventilation, acceptable and nasal cannula Hydration status: acceptable Comments: To PACU on O2NC, breathing comfortably. Report to CLARIFYING PLANT OPERATOR at bedside. VSS. * Anesthesia Procedure Notes - Luci Alonso DO - 04/07/2025 8:44 PM EDT Associated Order(s): Airway Airway Reason: elective Date/Time: 04/07/2025 8:43 PM Airway not difficult General Information and Staff Patient location during procedure: OR Anesthesiologist: Luci Alonso DO Indications and Patient Condition Indications for airway management: airway protection Preoxygenated: yes MILS not maintained throughout Mask difficulty assessment: 0 - not attempted Final Airway Details Final airway type: endotracheal airway Successful airway: ETT Cuffed: yes Successful intubation technique: video laryngoscopy and RSI Adjuncts used in placement: cricoid pressure Blade: Marcos Blade size: x blade. ETT size (mm): 7.0 Cormack-Lehane Classification: grade I - full view of glottis Placement verified by: chest auscultation and capnometry Measured from: lips ETT/EBT to lips (cm): 23 Number of attempts at approach: 1 Assessment: lips, teeth, and gum same as pre-op and atraumatic intubation * Anesthesia Preprocedure Evaluation - Luci Alonso DO - 04/07/2025 3:10 PM EDT Anesthesia Evaluation Patient summary reviewed and Nursing notes reviewed no history of anesthetic complications: NPO Solid Status: > 8 hours NPO Liquid Status: > 2 hours Airway Mallampati: II TM distance: >3 FB Neck ROM: full Possible difficult intubation Dental - normal exam Pulmonary - normal exam (+) pulmonary embolism (>6 mo ago, now on eliquis), asthma,sleep apnea (-) not a smoker Cardiovascular - normal exam Exercise tolerance: good (4-7 METS) ECG reviewed PT is on anticoagulation therapy (+) hypertension, CHF , hyperlipidemia Neuro/Psych (+) psychiatric history (-) seizures, CVA GI/Hepatic/Renal/Endo (+) morbid obesity Musculoskeletal Abdominal Substance History - negative use REEL 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 ) intravenous induction Anesthetic plan, risks, benefits, and alternatives have been provided, discussed and informed consent has been obtained with: patient. Plan discussed with RAMP SERVICE EMPLOYEE. CODE STATUS: Code Status (Patient has no pulse and is not breathing): CPR (Attempt to Resuscitate) Medical Interventions (Patient has pulse or is breathing): Full Support Level Of Support Discussed With: Patient documented in this encounter Plan of Treatment Not on file documented as of this encounter Procedures Procedure Name Priority Date/Time Associated Diagnosis Comments ANESTHESIA INTUBATION Routine 04/07/2025 8:44 PM EDT documented in this encounter Results * BH AN ETT AIRWAY (04/07/2025 8:44 PM EDT) Narrative Luci Alonso DO - 04/07/2025 8:44 PM EDT Luci Alonso DO 04/07/2025 8:45 PM Airway Reason: elective Date/Time: 04/07/2025 8:43 PM Airway not difficult General Information and Staff Patient location during procedure: OR Anesthesiologist: Luci Alonso DO Indications and Patient Condition Indications for airway management: airway protection Preoxygenated: yes MILS not maintained throughout Mask difficulty assessment: 0 - not attempted Final Airway Details Final airway type: endotracheal airway Successful airway: ETT Cuffed: yes Successful intubation technique: video laryngoscopy and RSI Adjuncts used in placement: cricoid pressure Blade: Marcos Blade size: x blade. ETT size (mm): 7.0 Cormack-Lehane Classification: grade I - full view of glottis Placement verified by: chest auscultation and capnometry Measured from: lips ETT/EBT to lips (cm): 23 Number of attempts at approach: 1 Assessment: lips, teeth, and gum same as pre-op and atraumatic intubation us Luci Alonso DO ANESTHESIA ORDERABLES Final Re sult documented in this encounter Visit Diagnoses Not on filedocumented in this encounter Administered Medications Inactive Administered Medications - up to 3 most recent administrations Medication Order MAR Action Action Date Dose Rate Site dexAMETHasone (DECADRON) injection Intravenous, As Needed, Starting on Mon04/07/25 at 2047 Given 04/07/2025 8:48 PM EDT 4 mg dexmedetomidine (PRECEDEX) injection Nasal, As Needed, Starting on Mon04/07/25 at 2053 Given 04/07/2025 9:14 PM EDT 8 mcg Given 04/07/2025 9:09 PM EDT 8 mcg Given 04/07/2025 8:54 PM EDT 8 mcg ePHEDrine Sulfate (Pressors) Intravenous, As Needed, Starting on Mon04/07/25 at 2046 Given 04/07/2025 8:57 PM EDT 5 mg Given 04/07/2025 8:53 PM EDT 5 mg Given 04/07/2025 8:47 PM EDT 5 mg fentaNYL citrate (PF) (SUBLIMAZE) injection Intravenous, As Needed, Starting on Mon04/07/25 at 2040 Given 04/07/2025 8:41 PM EDT 100 mcg lactated ringers infusion Intravenous, Continuous PRN, Starting on Mon04/07/25 at 6 New Bag 04/07/2025 8:36 PM EDT 50 mL/hr lidocaine PF 1% (XYLOCAINE) injection Intravenous, As Needed, Starting on Mon04/07/25 at 2040 Given 04/07/2025 8:41 PM EDT 50 mg midazolam (VERSED) injection Intravenous, As Needed, Starting on Mon04/07/25 at 9 Given 04/07/2025 9:09 PM EDT 2 mg ondansetron (ZOFRAN) injection Intravenous, As Needed, Starting on Mon04/07/25 at 8 Given 04/07/2025 8:48 PM EDT 4 mg phenylephrine (ROMARIO-SYNEPHRINE) 50 mg in sodium chloride 0.9 % 250 mL infusion Intravenous, Continuous PRN, Starting on Mon04/07/25 at 2102 New Bag 04/07/2025 9:03 PM EDT 0.3 mcg/kg/min 12.042 mL/hr New Bag 04/07/2025 8:59 PM EDT 0.1 mcg/kg/min 4.014 mL/ hr phenylephrine (ROMARIO-SYNEPHRINE) injection Intravenous, As Needed, Starting on Mon04/07/25 at 2046 Given 04/07/2025 8:57 PM EDT 100 mcg Given 04/07/2025 8:47 PM EDT 100 mcg propofol (DIPRIVAN) injection Intravenous, As Needed, Starting on Mon04/07/25 at 2040 Given 04/07/2025 9:09 PM EDT 80 mg Given 04/07/2025 8:41 PM EDT 230 mg rocuronium (ZEMURON) injection Intravenous, As Needed, Starting on Mon04/07/25 at 2111 Given 04/07/2025 9:12 PM EDT 30 mg Succinylcholine Chloride (ANECTINE) injection Intravenous, As Needed, Starting on Mon04/07/25 at 2041 Given 04/07/2025 8:42 PM EDT 140 mg sugammadex (BRIDION) injection Intravenous, As Needed, Starting on Mon04/07/25 at 3 Given 04/07/2025 9:33 PM EDT 200 mg vancomycin IVPB 2000 mg in 0.9% Sodium Chloride 500 mL 2,000 mg (rounded from 2,010 mg = 15 mg/kg 134 kg), Intravenous, at 250 mL/hr, Administer over 120 Minutes, Once, On Mon04/07/25 at 1646, For 1 dose, Administer Within 2 Hours of Surgical Incision. , Justification for use: Documentation of MRSA Colonization, Indications: Surgical ProphylaxisIndications:Surgical Prophylaxis New Bag 04/07/2025 8:36 PM EDT 2 g documented in this encounter Additional Health Concerns Infection Onset Date Last Indicated Resolved Time MRSA 05/09/2023 04/07/2025 documented as of this encounter Care Teams Horseradish Grinder Relationship Specialty Start Date End Date Provider, No Known [facility] [place] [address] PCP - General 05/09/23 documented as of this encounter
--- OUTSIDE RECORDS SUMMARY | 2025-04-08 13:45 | XMS_ITS | Encounter Summary ---
[facility] Organization [facility] Address [address] [place] [address] Care Team Providers Care Optical Store Manager Name Role Phone Provider, No Known Primary Care Provider Unavail able Reason for Visit * Reason Comments Leg Swelling * Auth/Cert Specialty Diagnoses / Procedures Referred By Contac t Referred To Contact Diagnoses Right BKA infection Referral ID Status Reason Start Date Expiration Date Visits Re quested Visits Authorized [id number] 1 1 Encounter Details Date Type Department Care Team (Late st Contact Info) Description 04/08/2025 2:45 PM EDT - 04/08/2025 4:04 PM EDT Surgery [facility] OR [address] [place] [address] Sushil Dean Jr., MD [address] [place] [address] [address] [id number] LEG DEBRIDEMENT AND IRRIGATION Social History Tobacco Use Types Packs/Day Years Used Date Smoking Tobacco: Never Smokeless Tobacco: Never Tobacco Cessation:Counseling Given: Not Answered Alcohol Use Standard Drinks/Week Comments Not Currently 0 (1 standard drink = 0.6 oz pur e alcohol) [facility] Utilities Answer Date Recorded In the past 12 months has [employer] electric, gas, oil, or water company threatened [...] 2:25 PM EDT Cherri Grimm RN * [place] Suicide Severity Rating Scale (Screener/Recent Self-Report) Question [...] Date/Time Wound Culture - Swab, Leg, Right [[id number]] (Abnormal) (Susceptibility) Collected: 04/07/252106 Lab Status: Final [...] Units Date/Time FL C Arm During Surgery [[id number]] Resulted: 04/07/252137 Updated: 04/07/252137 Narrative: This procedure was auto-finalized with no dictation required. MRI Tibia Fibula Right With & Without Contrast [[id number]] Collected: 04/07/25 0938 Updated: 04/07/25 1001 Narrative: [...] Buenrostro 04/07/2025 9:58 AM EDT Workstation ID: [id number] MRI Tibia Fibula Right With & Without Contrast [[id number]] Collected: 04/04/252256 Updated: 04/04/252302 Narrative: MRI TIBIA [...] represent a small area of phlegmonous change (xwtmaw39 image 10) measuring approximately 1.6 cm which [...] MD 04/04/2025 11:00 PM EDT Workstation ID: [id number] Pending Labs Order Current Status Fungus Culture [...] Male) Date of 1980 Social Security Number [id number] [place] [address] [place] [address] Islam Unknown Marital Status Unknown Admission Date 04/04/2025 Admission Type Emergency Admitting Provider Jadyn Richardson DO Attending Provider Jadyn Richardson DO Department, Room/Bed [facility] 5G, S565/1 Discharge Date Discharge Disposition Discharge Destination Attending Provider: Jadyn Richardson DO Allergies: Ceftin [Cefuroxime], Keflex [Cephalexin], Latex Isolation: None Infection: MRSA (05/11/23) Code Status: CPR Ht: 180.3 cm (71 ) Wt: 134 kg (295 lb) Admission Cmt: None 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 Insurance as of 04/04/2025 Primary Coverage Payor Plan Insurance Group Employer/Plan Group [place] [id number] Payor Plan Address Payor Plan Phone Number Payor Plan Fax Number Effective Dates [employer] [address] [address] 08/10/2023 - None Entered Formerly [facility] [address] Subscriber Name Subscriber Date Member ID WON DENNIS 1980 [id number] Emergency Contacts Laborer Hoisting (Rel.) Home Phone Work Phone Mobile Phone Avril Dennis (Spouse) -- -- [phone] Robert Hackett (Relative) -- -- [phone] [facility] 5G [address] [facility] [address] Patient: ROOM: 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 Outpatient intravenous antibiotic therapy: Daptomycin 800 mg IV daily [facility] supplied [facility] 2. Home health to perform [...] INFECTIOUS DISEASE Progress Note Won Dennis 1980 [id number] Date of Consult: 04/10/2025 Admission Date: 04/04/2025 [...] which prompted him to seek treatment at [facility]. He is known to Dr. [...] wound 05/09/25. HDS, on Heparin gtt. Currently [facility] has been asked to manage the [...] Jr., MD, 20 mg at 04/09/25906 heparin 73565 units/250 mL (100 units/mL) in 0.45 % [...] Dose Heparin, , Not Applicable, Continuous PRN, uSshil Dean Jr., MD Phosphorus Replacement - Follow [...] Units Date/Time FL C Arm During Surgery [[id number]] Resulted: 04/07/252137 Updated: 04/07/252137 Narrative: This procedure was auto-finalized with no dictation required. MRI Tibia Fibula Right With & Without Contrast [[id number]] Collected: 04/07/2538 Updated: 04/07/25 1001 Narrative: MRI [...] Buenrostro 04/07/2025 9:58 AM EDT Workstation ID: [id number] Impression: Recurrent Right BKA stump abscess/cellulitis- this [...] discussed his disposition with the pharmacist at [facility] today. I will sign off Outpatient orders: 1. Outpatient intravenous antibiotic therapy: Daptomycin 800 mg IV daily to be supplied by [facility] 2. Home health to perform weekly [...] 04/10/251323 Creation Time: 04/10/251323 Signed Expand [facility] Medicine Services PROGRESS NOTE Patient Name: [...] Date/Time Wound Culture - Swab, Leg, Right [[id number]] (Abnormal) (Susceptibility) Collected: 04/07/252106 Lab Status: Final [...] Support Level Of Support Discussed With: Patient Roasrio Hill APRN 04/10/25 * Susan Cavazos, PT [...] Row Name 04/06/25 1143 Sit-Stand Transfer Sit-Stand Phillips (Transfers) modified independence - Comment, (Sit-Stand Transfer) Pt stood from recliner. Not holding onto walker, pt able to pull his pants up while balancing on his one leg. -LM Row Name 04/06/25 1143 Gait/Stairs (Locomotion) Phillips Level (Gait) modified independence - Distance in [...] Motion bilateral lower extremity ROM WFL -LM [facility] Name 04/06/25 1145 Strength Comprehensive (MMT) General Manual Muscle Testing (MMT) Assessment no strength deficits identified BLEs -LM [facility] Name 04/06/25 1145 Balance Balance Assessment sitting [...] home at d/c. PT signing off. -LM [facility] Name 04/06/25 1146 Therapy Assessment/Plan (PT) Criteria for Skilled Interventions Met (PT) no;no problems identified which require skilled intervention -LM Therapy Frequency (PT) evaluation only -LM Predicted Duration of Therapy Intervention (PT) Eval Only -LM [facility] Name 04/06/25 1146 Vital Signs Pretreatment Heart Rate (beats/min) 86 -LM Posttreatment Heart Rate (beats/min) 96 -LM Pre SpO2 (%) 95 -LM O2 Delivery Pre Treatment room air -LM Post SpO2 (%) 96 -LM O2 Delivery Post Treatment room air -LM Pre Patient Position Sitting -LM Post Patient Position Sitting -LM [facility] Name 04/06/25 1146 Positioning and Restraints Pre-Treatment [...] Nurse Physical Therapy Education Title: PT OT FISHERIES TECHNICIAN Therapies (Done) Topic: Physical Therapy (Done) [...] Description Service Date Service Provider Modifiers Qty [phone] PT EVAL LOW COMPLEXITY 3 04/06/2025 Susan [...] mg Daily 04/05/2025 -- Route: Oral heparin 01478 units/250 mL (100 units/mL) in [...] 22 [facility] [address], [address] [facility]ly [facility], [address] Please schedule at [phone] VONDA Garcia 04/11/25 08:32 EDT Cosigned by [...] Date/Time Wound Culture - Swab, Leg, Right [[id number]] (Abnormal) (Susceptibility) Collected: 04/07/252106 Lab Status: Final [...] mg Daily 04/05/2025 -- Route: Oral heparin 59765 units/250 mL (100 units/mL) in 0.45 % [...] 22 [facility] [address] [facility], [address] [facility], [address] Please schedule at [phone] VONDA Garcia 04/10/25 09:01 EDT Cosigned by Sushil Dean Jr., MD at 04/19/2025 10:33 AM EDT Associated attestation - Sushil Dean Jr., MD - 04/19/2025 10:33 AM EDT I have reviewed this documentation and agree. * Carlton Mead MD - 04/10/2025 7:38 AM EDT Images from the original note were not included. INFECTIOUS DISEASE Progress Note Won Dennis 1980 [id number] Date of Consult: 04/10/2025 Admission Date: 04/04/2025 [...] which prompted him to seek treatment at [facility]. He is known to Dr. [...] wound 05/09/25. HDS, on Heparin gtt. Currently [facility] has been asked to manage the [...] IRRIGATION; Surgeon: Sushil Dean Jr., MD; Location[facility]; Service: Orthopedics; Laterality: Right; PLACEMENT OF WOUND VAC Right 04/07/2025 Procedure: WOUND VACUUM ASSISTED CLOSURE; Surgeon: Sushil Dean Jr., MD; Location: [facility]; Service: Orthopedics; Laterality: Right; WOUND CLOSURE [...] Jr., MD, 20 mg at 04/09/25906 heparin 01011 units/250 mL (100 units/mL) in 0.45 % [...] % 100 mL MBP Ordering Provider: Leonora Shephedr MD 2,000 mg 200 mL/hr over 30 [...] Units Date/Time FL C Arm During Surgery [[id number]] Resulted: 04/07/252137 Updated: 04/07/252137 Narrative: This procedure was auto-finalized with no dictation required. MRI Tibia Fibula Right With & Without Contrast [[id number]] Collected: 04/07/25937 Updated: 04/07/25 100 Narrative: MRI [...] Buenrostro 04/07/2025 9:58 AM EDT Workstation ID: [id number] Impression: Recurrent Right BKA stump abscess/cellulitis- this [...] discussed his disposition with the pharmacist at [facility] today. I will sign off Outpatient orders: 1. Outpatient intravenous antibiotic therapy: Daptomycin 800 mg IV daily to be supplied by [facility] 2. Home health to perform weekly [...] 07:38 EDT * Larisa Hamilton [facility] - 04/10/2025 7:17 AM EDT Pharmacy to [...] Date/Time Wound Culture - Swab, Leg, Right [[id number]] (Abnormal) Collected: 04/07/252106 Lab Status: Preliminary result [...] DO 04/09/25 * Larisa Hamilton [facility] - 04/09/2025 11:36 AM EDT Pharmacy to [...] mg Daily 04/05/2025 -- Route: Oral heparin 33330 units/250 mL (100 units/mL) in 0.45 % [...] radiographs [facility] [address] [facility], [address] [facility], [address] Please schedule at [phone] VONDA Garcia 04/09/25 09:18 EDT Cosigned by Sushil Dean Jr., MD at 04/19/2025 10:33 AM EDT Associated attestation - Sushil Dean Jr., MD - 04/19/2025 10:33 AM EDT I have reviewed this documentation and agree. * Carlton Mead MD - 04/09/2025 8:25 AM EDT Images from the original note were not included. INFECTIOUS DISEASE Progress Note Won Dennis 1980 [id number] Date of Consult: 04/09/2025 Admission Date: 04/04/2025 [...] which prompted him to seek treatment at [facility]. He is known to Dr. [...] wound 05/09/25. HDS, on Heparin gtt. Currently [facility] has been asked to manage the [...] Jr., MD; Location: [facility]; Service: Orthopedics; Laterality: Right; PLACEMENT OF WOUND VAC Right 04/07/2025 Procedure: WOUND VACUUM ASSISTED CLOSURE; Surgeon: Sushil Dean Jr., MD; Location: [facility] OR; Service: Orthopedics; Laterality: Right; History reviewed. [...] MD, 20 mg at 04/08/25 0800 heparin 22070 units/250 mL (100 units/mL) in 0.45 % [...] Units Date/Time FL C Arm During Surgery [[id number]] Resulted: 04/07/252137 Updated: 04/07/252137 Narrative: This procedure was auto-finalized with no dictation required. MRI Tibia Fibula Right With & Without Contrast [[id number]] Collected: 04/07/25 0938 Updated: 04/07/25 1001 Narrative: [...] Chitra 04/07/2025 9:58 AM EDT Workstation ID: [id number] Impression: Recurrent Right BKA stump abscess/cellulitis- this [...] mg IV daily to be supplied [facility] 2. Home health to perform [...] Buenrostro 04/07/2025 9:58 AM EDT Workstation ID: [id number] I have personally reviewed the therapy plans: [...] DO 04/08/25 * Hamilton, Larisa, [facility] - 04/08/2025 11:48 AM EDT Pharmacy to [...] mg Daily 04/05/2025 -- Route: Oral heparin 33381 units/250 mL (100 units/mL) in 0.45 % [...] INFECTIOUS DISEASE Progress Note Won Dennis 1980 [id number] Date of Consult: 04/08/2025 Admission Date: 04/04/2025 [...] which prompted him to seek treatment at [facility]. He is known to Dr. [...] wound 05/09/25. HDS, on Heparin gtt. Currently [facility] has been asked to manage the [...] Jr., MD; Location: [facility] OR; Service: Orthopedics; Laterality: Right; PLACEMENT OF WOUND VAC Right 04/07/2025 Procedure: WOUND VACUUM ASSISTED CLOSURE; Surgeon: Sushil Dean Jr., MD; Location: [facility] OR; Service: Orthopedics; Laterality: Right; History reviewed. [...] Oral, Q6H PRN, 500 mg at 04/06/25 2024 OR acetaminophen (TYLENOL) 160 MG/5ML oral solution [...] 2 puff, Inhalation, BID - RT, Sushil Daen Jr., MD, 2 puff at 04/06/25 190 [...] Jr., MD, 20 mg at 04/07/25950 heparin 65681 units/250 mL (100 units/mL) in 0.45 % [...] 10 mL, 10 mL, Intravenous, Q12H, Sushil Dena Jr., MD, 10 mL at 04/07/25951 sodium [...] Units Date/Time FL C Arm During Surgery [[id number]] Resulted: 04/07/252137 Updated: 04/07/252137 Narrative: This procedure was auto-finalized with no dictation required. MRI Tibia Fibula Right With & Without Contrast [[id number]] Collected: 04/07/25 0938 Updated: 04/07/25 1001 Narrative: [...] Buenrostro 04/07/2025 9:58 AM EDT Workstation ID: [id number] Impression: Right BKA stump cellulitis- s/p BKA with multiple surgical interventions with Known MRSA 05/09/2025. (Treated by ID in [place] Dr. Harris). Dr. Torres treated him with [...] Buenrostro 04/07/2025 9:58 AM EDT Workstation ID: [id number] I have personally reviewed the therapy plans: [...] Preeti 04/07/25 * Larisa Hamilton, [facility] - 04/07/2025 11:56 AM EDT Pharmacy to [...] INFECTIOUS DISEASE Progress Note Won Dennis 1980 [id number] Date of Consult: 04/07/2025 Admission Date: 04/04/2025 [...] which prompted him to seek treatment at [facility]. He is known to Dr. [...] wound 05/09/25. HDS, on Heparin gtt. Currently [facility] has been asked to manage the [...] MD, 20 mg at 04/06/25 0900 heparin 44188 units/250 mL (100 units/mL) in 0.45 % NaCl infusion, 18 Units/kg/hr, Intravenous, Titrated, Cherri Beatty, [facility], Last Rate: 24.1 mL/hr at 04/07/258, 18 [...] With & Without Contrast - In process [[id number]] Resulted: 04/07/25828 Updated: 04/07/25828 This result has not been signed. Information might be incomplete. MRI Tibia Fibula Right With & Without Contrast [[id number]] Collected: 04/04/252256 Updated: 04/04/253 Narrative: MRI TIBIA [...] represent a small area of phlegmonous change (xroqjp85 image 10) measuring approximately 1.6 cm which [...] MD 04/04/2025 11:00 PM EDT Workstation ID: [id number] Impression: Right BKA stump cellulitis- s/p BKA with multiple surgical interventions with Known MRSA 05/09/2025. (Treated by ID in [place] Dr. Harris). Dr. Torres treated him with [...] mg Daily 04/05/2025 -- Route: Oral heparin 89427 units/250 mL (100 units/mL) in 0.45 % [...] 06:07 EDT * Cherri Beatty [facility] - 04/06/2025 1:47 PM EDT Pharmacy to [...] MD 04/04/2025 11:00 PM EDT Workstation ID: [id number] I have personally reviewed the therapy plans: [...] mg Daily 04/05/2025 -- Route: Oral heparin 20436 units/250 mL (100 units/mL) in 0.45 % [...] INFECTIOUS DISEASE follow up. Won Dennis 1980 [id number] Date of Consult: 04/06/2025 Admission Date: 04/04/2025 [...] which prompted him to seek treatment at [facility]. He is known to Dr. [...] wound 05/09/25. HDS, on Heparin gtt. Currently [facility] has been asked to manage the [...] MD, 20 mg at 04/06/25 0900 heparin 15211 units/250 mL (100 units/mL) in 0.45 % NaCl infusion, 18 Units/kg/hr, Intravenous, Titrated, Cherri Beatty [facility], Last Rate: 24.1 mL/hr at 04/06/25 1420, [...] Tibia Fibula Right With & Without Contrast [[id number]] Collected: 04/04/252256 Updated: 04/04/252302 Narrative: MRI TIBIA [...] represent a small area of phlegmonous change (axttdo02 image 10) measuring approximately 1.6 cm which [...] MD 04/04/2025 11:00 PM EDT Workstation ID: [id number] Impression: Right BKA stump cellulitis- s/p BKA with multiple surgical interventions with Known MRSA 05/09/2025. (Treated by ID in [place] Dr. Harris). Dr. Torres treated him with [...] MD 04/04/2025 11:00 PM EDT Workstation ID: [id number] I have personally reviewed the therapy plans: [...] MD 04/04/2025 11:00 PM EDT Workstation ID: [id number] Assessment & Plan Assessment & Plan Won [...] PICC placed by Rhoda Bonner RN [facility], tip verified by 3CG see LDA. 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 male admitted to [facility] [place] with Right BKA [...] was evaluated in the emergency department in [place], was discharged with instructions for follow-up. He [...] by mouth Daily. 04/03/2025 Morning Lactobacillus-Inulin ([facility] Digestive [facility]) capsule Take 200 mg by mouth [...] MD 04/04/2025 11:00 PM EDT Workstation ID: [id number] Assessment: Right BKA infection 44-year-old male with [...] DISEASE CONSULT/INITIAL HOSPITAL VISIT Won Dennis 1980 [id number] Date of Consult: 04/05/2025 Admission Date: 04/04/2025 [...] which prompted him to seek treatment at [facility]. He is known to Dr. [...] wound 05/09/25. HDS, on Heparin gtt. Currently [facility] has been asked to manage the [...] Leonora Shepherd MD, 40 mg at 04/04/25 0420 sennosides-docusate (PERICOLACE) 8.6-50 MG per tablet 2 [...] MD, 20 mg at 04/05/25 09 heparin 11890 units/250 mL (100 units/mL) in [...] Leonora Shepherd MD, 10 mg at 04/04/25 6884 Pharmacy to Dose Heparin, , Not Applicable, [...] Tibia Fibula Right With & Without Contrast [[id number]] Collected: 04/04/252256 Updated: 04/04/252302 Narrative: MRI TIBIA [...] represent a small area of phlegmonous change (sastng65 image 10) measuring approximately 1.6 cm which [...] MD 04/04/2025 11:00 PM EDT Workstation ID: [id number] Impression: Right BKA stump cellulitis- s/p BKA with multiple surgical interventions with Known MRSA 05/09/2025. (Treated by ID in [place] Dr. Harris). Dr. Torres treated him with [...] Jr., MD - 04/08/2025 3:51 PM EDT [facility] OPERATIVE REPORT PATIENT NAME: Won Dennis DATE OF : 1980 PREOP DIAGNOSIS: Right Right below-knee amputation infection POSTOP DIAGNOSIS: Same. PROCEDURE: Right Right 92463: Secondary closure below-knee amputation SURGEON: Sushil Dean MD OPERATIVE TEAM: Wire Stitcher: Susi Grullon RN Scrub Person: Mary Paredes Scrub Person Extra: Hortencia Toribio Other: Katt Gotti RN; Charis Neville RN ANESTHETIST: Anesthesiologist: Ulises Hoffman MD BUN 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: Stan Casillas CRNA Student Nurse [employer] Consultant: Karol Albert SRNA ANESTHESIA: Choice [...] CULTURE (Canceled) Sushil Dean Jr., MD 04/08/25 7976 Description: RIGHT LEG DEEP WOUND FOR CULTURE [...] MD 04/08/2025 * Op Note - Sushil Daen Jr., MD - 04/07/2025 9:03 PM EDT [facility], [place] [address] OPERATIVE REPORT PATIENT NAME: Won Dennis DATE OF : 1980 PREOP DIAGNOSIS: Right Right below knee amputation stump infection POSTOP DIAGNOSIS: Same. PROCEDURE: Right Right 57149: Incision and drainage of surgical site infection 15534: Debridement of skin, subcutaneous tissue, muscle 37835: Wound vacuum-assisted closure SURGEON: Sushil Dean MD OPERATIVE TEAM: Wire Stitcher: Anum Sanchez RN Scrub Person: Hortencia Toribio; Gerald Ivey MELT HOUSE CENTRIFUGAL OPERATOR: Anesthesiologist: Luci Alonso DO ANESTHESIA: General [...] ago swellling of the area. seen at [facility] yesterday for CT and US, [...] this chart in the absence of a drill hand. No orders to display RADIOLOGY: [x] Radiologist's [...] vancomycin, Rocephin. He was seen by Dr. eDan in the ED who recommends hospitalization andhe [...] is discharging home with outpatient infusion at [facility]. He has an appointment with [facility] at 8:00 am tomorrow. They will do [...] to get IV ABX at home with [facility]; however, Medicaid lapsed on 04/08. DEBRA was unaware until this morning that Medicaid has lapsed. Patient explained that he has Medicare A and B. CM spoke with KELLEE and given themhis Medicare number [id number], she sent it to Admission. DEBRA spoke with Kerri, with [facility], and explained that he had Medicare A and B. However, it will not cover home infusion. It will be $64.00 a day out of packet. Patients can go to the Infusion center at [facility], and it will cover the cost as an outpatient. He will need to go there every day for infusion. They will be able to do the patients' PICC line dressing changes and lab work. DEBRA called [facility] infusion center they can accept patient and start him. He is known for their facility. The Facility will need to run it through his insurance first. CM faxed the orders over to [facility] at [phone]. CM will follow up with them tomorrow at [facility] to make sure they received the orders. [...] EDT Continued Stay Note [facility] Patient Name: Won Dennis Today's Date: 04/09/2025 Admit Date: 04/04/2025 Plan: Home Discharge Plan Row Name 04/09/25 1311 Plan Plan Home Patient/Family in Agreement with Plan yes Plan Comments CM spoke with patient at bedside today. Wheelchair from [employer] is at bedside. Patient getting PICC [...] included. Discharge Planning Assessment [facility] Patient Name: Won Dennis Today's Date: 04/07/2025 [...] family Patient/Family Anticipated Services at Transition nurse outreach case managertalent solutions manager Anticipated family or friend will provide [...] for home. CM will order wheelchair [facility]. He is not current with home health services. PCP is Dr. Jordan. Insurance is [place]. Patient discharge plan is home [...] CBC Auto Differential (04/11/2025 3:40 AM EDT) [facility] WBC 7.87 3.40 - 10.80 10*3/mm3 04/11/2025 4:02 AM EDT [facility] RBC 4.70 4.14 - 5.80 10*6/mm3 04/11/2025 4:02 AM [facility] Hemoglobin 12.8(L) 13.0 - 17.7 g/dL 04/11/2025 4:02 AM [facility] Hematocrit 40.5 37.5 - 51.0 % 04/11/2025 4:02 AM [facility] MCV 86.2 79.0 - 97.0 fL 04/11/2025 4:02 AM [facility] MCH 27.2 26.6 - 33.0 pg 04/11/2025 4:02 AM [facility] MCHC 31.6 31.5 - 35.7 g/dL 04/11/2025 4:02 AM [facility] RDW 12.9 12.3 - 15.4 % 04/11/2025 4:02 AM [facility] RDW-SD 40.5 37.0 - 54.0 fl 04/11/2025 4:02 AM [facility] MPV 9.2 6.0 - 12.0 fL 04/11/2025 4:02 AM [facility] Platelets 267 140 - 450 10*3/mm3 04/11/2025 4:02 AM [facility] Neutrophil % 59.5 42.7 - 76.0 % 04/11/2025 4:02 AM [facility] Lymphocyte % 26.3 19.6 - 45.3 % 04/11/2025 4:02 AM [facility] Monocyte % 9.3 5.0 - 12.0 % 04/11/2025 4:02 AM [facility] Eosinophil % 4.1 0.3 - 6.2 % 04/11/2025 4:02 AM [facility] Basophil % 0.4 0.0 - 1.5 % 04/11/2025 4:02 [facility] Immature Grans % 0.4 0.0 - 0.5 % 04/11/2025 4:02 AM EDT [facility] Neutrophils, Absolute 4.69 1.70 - 7.00 10*3/mm3 04/11/2025 4:02 AM EDT [facility] Lymphocytes, Absolute 2.07 0.70 - 3.10 10*3/mm3 04/11/2025 4:02 AM EDT [facility] Monocytes, Absolute 0.73 0.10 - 0.90 10*3/mm3 04/11/2025 4:02 AM EDT [facility] Eosinophils, Absolute 0.32 0.00 - 0.40 10*3/mm3 04/11/2025 4:02 AM EDT [facility] Basophils, Absolute 0.03 0.00 - 0.20 10*3/mm3 04/11/2025 4:02 AM EDT [facility] Immature Grans, Absolute 0.03 0.00 - 0.05 10*3/mm3 04/11/2025 4:02 AM EDT [facility] nRBC 0.0 0.0 - 0.2 /100 WBC 04/11/2025 4:02 AM EDT [facility] Blood Venipuncture / Unknown 04/11/2025 3:40 AM EDT 04/11/2025 3:59 AM EDT us Sushil Dean Jr., MD LAB BLOOD ORDERABLES Fi nal Result [facility]
[address] [place] [address], * (ABNORMAL) Comprehensive Metabolic Panel (04/11/2025 3:40 AM EDT) Glucose 108(H) 65 - 99 mg/dL 04/11/2025 4:19 AM EDT [facility] BUN 12.5 6.0 - 20.0 mg/dL 04/11/2025 4:19 AM EDT [facility] Creatinine 0.68(L) 0.76 - 1.27 mg/dL 04/11/2025 4:19 AM [facility] Sodium 140 136 - 145 mmol/L 04/11/2025 4:19 AM [facility] Potassium 3.8 3.5 - 5.2 mmol/L 04/11/2025 4:19 AM [facility] Chloride 105 98 - 107 mmol/L 04/11/2025 4:19 AM [facility] CO2 28.2 22.0 - 29.0 mmol/L 04/11/2025 4:19 AM [facility] Calcium 8.2(L) 8.6 - 10.5 mg/dL 04/11/2025 4:19 AM [facility] Total Protein 6.1 6.0 - 8.5 g/dL 04/11/2025 4:19 AM [facility] Albumin 3.1(L) 3.5 - 5.2 g/dL 04/11/2025 4:19 AM [facility] ALT (SGPT) 52(H) 1 - 41 U/L 04/11/2025 4:19 AM [facility] AST (SGOT) 40 1 - 40 U/L 04/11/2025 4:19 AM [facility] Alkaline Phosphatase 99 39 - 117 U/L 04/11/2025 4:19 AM [facility] Total Bilirubin 0.2 0.0 - 1.2 mg/dL 04/11/2025 4:19 AM [facility] Globulin 3.0 gm/dL 04/11/2025 4:19 AM [facility] Comment:Calculated Result A/G Ratio 1.0 g/dL 04/11/2025 4:19 AM [facility] BUN/Creatinine Ratio 18.4 7.0 - 25.0 04/11/2025 4:19 AM [facility] Anion Gap 6.8 5.0 - 15.0 mmol/L 04/11/2025 4:19 AM [facility] eGFR 117.5 >60.0 mL/min/1.7 3 04/11/2025 4:19 AM EDT [facility] Blood Venipuncture / Unknown 04/11/2025 3:40 AM EDT 04/11/2025 3:56 AM EDT [facility] - 04/11/2025 4:19 AM [...] Hill APRN LAB BLOOD ORDERABLES Final Result [facility]
[address] [place] [address], * (ABNORMAL) CBC Auto Differential (04/10/2025 3:46 AM EDT) WBC 9.60 3.40 - 10.80 10*3/mm3 04/10/2025 3:56 AM EDT [facility] RBC 4.67 4.14 - 5.80 10*6/mm3 04/10/2025 3:56 AM EDT [facility] Hemoglobin 12.9(L) 13.0 - 17.7 g/dL 04/10/2025 3:56 AM EDT [facility] Hematocrit 40.1 37.5 - 51.0 % 04/10/2025 3:56 AM EDT [facility] MCV 85.9 79.0 - 97.0 fL 04/10/2025 3:56 AM EDT [facility] MCH 27.6 26.6 - 33.0 pg 04/10/2025 3:56 AM [facility] MCHC 32.2 31.5 - 35.7 g/dL 04/10/2025 3:56 AM EDT [facility] RDW 12.9 12.3 - 15.4 % 04/10/2025 3:56 AM [facility] RDW-SD 40.5 37.0 - 54.0 fl 04/10/2025 3:56 AM EDT [facility] MPV 9.5 6.0 - 12.0 fL 04/10/2025 3:56 AM EDT [facility] Platelets 227 140 - 450 10*3/mm3 04/10/2025 3:56 AM [facility] Neutrophil % 59.1 42.7 - 76.0 % 04/10/2025 3:56 AM [facility] Lymphocyte % 29.0 19.6 - 45.3 % 04/10/2025 3:56 AM [facility] Monocyte % 8.1 5.0 - 12.0 % 04/10/2025 3:56 AM [facility] Eosinophil % 3.2 0.3 - 6.2 % 04/10/2025 3:56 AM [facility] Basophil % 0.4 0.0 - 1.5 % 04/10/2025 3:56 AM [facility] Immature Grans % 0.2 0.0 - 0.5 % 04/10/2025 3:56 AM [facility] Neutrophils, Absolute 5.67 1.70 - 7.00 10*3/mm3 04/10/2025 3:56 AM [facility] Lymphocytes, Absolute 2.78 0.70 - 3.10 10*3/mm3 04/10/2025 3:56 AM [facility] Monocytes, Absolute 0.78 0.10 - 0.90 10*3/mm3 04/10/2025 3:56 AM [facility] Eosinophils, Absolute 0.31 0.00 - 0.40 10*3/mm3 04/10/2025 3:56 AM EDT [facility] Basophils, Absolute 0.04 0.00 - 0.20 10*3/mm3 04/10/2025 3:56 AM EDT [facility] Immature Grans, Absolute 0.02 0.00 - 0.05 10*3/mm3 04/10/2025 3:56 AM EDT [facility] nRBC 0.0 0.0 - 0.2 /100 WBC 04/10/2025 3:56 AM EDT [facility] Blood Venipuncture / Unknown 04/10/2025 3:46 AM EDT 04/10/2025 3:53 AM EDT us Jason Álvarez DO LAB BLOOD ORDERABLES Final Resul t [facility]
[address] [place] [address], * (ABNORMAL) Basic Metabolic Panel (04/10/2025 3:46 AM EDT) Glucose 125(H) 65 - 99 mg/dL 04/10/2025 4:20 AM EDT [facility] BUN 15.9 6.0 - 20.0 mg/dL 04/10/2025 4:20 AM EDT [facility] Creatinine 0.77 0.76 - 1.27 mg/dL 04/10/2025 4:20 AM EDT [facility] Sodium 137 136 - 145 mmol/L 04/10/2025 4:20 AM EDT [facility] Potassium 3.9 3.5 - 5.2 mmol/L 04/10/2025 4:20 AM EDT [facility] Chloride 102 98 - 107 mmol/L 04/10/2025 4:20 AM EDT [facility] CO2 26.9 22.0 - 29.0 mmol/L 04/10/2025 4:20 AM EDT [facility] Calcium 7.9(L) 8.6 - 10.5 mg/dL 04/10/2025 4:20 AM EDT [facility] BUN/Creatinine Ratio 20.6 7.0 - 25.0 04/10/2025 4:20 AM EDT [facility] Anion Gap 8.1 5.0 - 15.0 mmol/L 04/10/2025 4:20 AM EDT [facility] eGFR 113.2 >60.0 mL/min/1.7 3 04/10/2025 4:20 AM EDT [facility] Blood Venipuncture / Unknown 04/10/2025 3:46 AM EDT 04/10/2025 3:52 AM EDT Narrative [facility] - 04/10/2025 4:20 AM EDT [...] DO LAB BLOOD ORDERABLES Final Resul t [facility]
[address] [place] [address], * Heparin Anti-Xa (04/10/2025 3:46 AM EDT) Heparin Anti-Xa (UFH) 0.35 0.30 - 0.70 IU/ml 04/10/2025 4:23 AM EDT [facility] Blood Venipuncture / Unknown 04/10/2025 3:46 AM EDT 04/10/2025 3:53 AM EDT Larisa Hamilton [facility] LAB BLOOD ORDERABLES Final R esult [facility]
[address] [place] [address], * Heparin Anti-Xa (04/09/2025 10:05 AM EDT) Pathologist [facility] Heparin Anti-Xa (UFH) 0.36 0.30 - 0.70 IU/ml 04/09/2025 11:12 AM EDT [facility] Blood Venipuncture / Unknown 04/09/2025 10:05 AM EDT 04/09/2025 10:47 AM EDT aLrisa Hamilton [facility] LAB BLOOD ORDERABLES Final R esult [facility]
[address] [place] [address], * (ABNORMAL) CBC Auto Differential (04/09/2025 4:18 AM EDT) Pathologist [facility] WBC 11.00(H) 3.40 - 10.80 10*3/mm3 04/09/2025 4:50 AM EDT [facility] RBC 4.70 4.14 - 5.80 10*6/mm3 04/09/2025 4:50 AM EDT [facility] Hemoglobin 13.0 13.0 - 17.7 g/dL 04/09/2025 4:50 AM EDT [facility] Hematocrit 40.4 37.5 - 51.0 % 04/09/2025 4:50 AM EDT [facility] MCV 86.0 79.0 - 97.0 fL 04/09/2025 4:50 AM EDT [facility] MCH 27.7 26.6 - 33.0 pg 04/09/2025 4:50 AM EDT [facility] MCHC 32.2 31.5 - 35.7 g/dL 04/09/2025 4:50 AM EDT [facility] RDW 12.8 12.3 - 15.4 % 04/09/2025 4:50 AM [facility] RDW-SD 39.9 37.0 - 54.0 fl 04/09/2025 4:50 AM [facility] MPV 10.0 6.0 - 12.0 fL 04/09/2025 4:50 AM [facility] Platelets 211 140 - 450 10*3/mm3 04/09/2025 4:50 AM [facility] Neutrophil % 74.8 42.7 - 76.0 % 04/09/2025 4:50 AM [facility] Lymphocyte % 15.4(L) 19.6 - 45.3 % 04/09/2025 4:50 AM [facility] Monocyte % 8.5 5.0 - 12.0 % 04/09/2025 4:50 AM [facility] Eosinophil % 0.6 0.3 - 6.2 % 04/09/2025 4:50 AM [facility] Basophil % 0.4 0.0 - 1.5 % 04/09/2025 4:50 AM [facility] Immature Grans % 0.3 0.0 - 0.5 % 04/09/2025 4:50 AM [facility] Neutrophils, Absolute 8.23(H) 1.70 - 7.00 10*3/mm3 04/09/2025 4:50 AM [facility] Lymphocytes, Absolute 1.69 0.70 - 3.10 10*3/mm3 04/09/2025 4:50 AM [facility] Monocytes, Absolute 0.94(H) 0.10 - 0.90 10*3/mm3 04/09/2025 4:50 AM [facility] Eosinophils, Absolute 0.07 0.00 - 0.40 10*3/mm3 04/09/2025 4:50 AM [facility] Basophils, Absolute 0.04 0.00 - 0.20 10*3/mm3 04/09/2025 4:50 AM EDT [facility] Immature Grans, Absolute 0.03 0.00 - 0.05 10*3/mm3 04/09/2025 4:50 AM EDT [facility] nRBC 0.0 0.0 - 0.2 /100 WBC 04/09/2025 4:50 AM EDT [facility] Blood Venipuncture / Unknown 04/09/2025 4:18 AM EDT 04/09/2025 4:31 AM EDT Sushil Dean Jr., MD LAB BLOOD ORDERABLES Fi nal Result Performing Organization Address City/[facility]/ZIP Co de Phone Number [facility]
[address] [place] [address], * Heparin Anti-Xa (04/09/2025 4:18 AM EDT) Heparin Anti-Xa (UFH) 0.41 0.30 - 0.70 IU/ml 04/09/2025 4:53 AM EDT [facility] Blood Venipuncture / Unknown 04/09/2025 4:18 AM EDT 04/09/2025 4:31 AM EDT Una LundbergD LAB BLOOD ORDERABLES Final R esult [facility]
[address] [place] [address], * (ABNORMAL) Basic Metabolic Panel (04/09/2025 4:18 AM EDT) Glucose 147(H) 65 - 99 mg/dL 04/09/2025 5:33 AM EDT [facility] BUN 23.0(H) 6.0 - 20.0 mg/dL 04/09/2025 5:33 AM EDT [facility] Creatinine 1.15 0.76 - 1.27 mg/dL 04/09/2025 5:33 AM EDT [facility] Sodium 135(L) 136 - 145 mmol/L 04/09/2025 5:33 AM EDT [facility] Potassium 4.2 3.5 - 5.2 mmol/L 04/09/2025 5:33 AM EDT [facility] Chloride 100 98 - 107 mmol/L 04/09/2025 5:33 AM EDT [facility] CO2 26.0 22.0 - 29.0 mmol/L 04/09/2025 5:33 AM EDT [facility] Calcium 8.2(L) 8.6 - 10.5 mg/dL 04/09/2025 5:33 AM EDT [facility] BUN/Creatinine Ratio 20.0 7.0 - 25.0 04/09/2025 5:33 AM EDT [facility] Anion Gap 9.0 5.0 - 15.0 mmol/L 04/09/2025 5:33 AM EDT [facility] eGFR 80.5 >60.0 mL/min/1.7 3 04/09/2025 5:33 AM EDT [facility] Blood Venipuncture / Unknown 04/09/2025 4:18 AM EDT 04/09/2025 4:29 AM EDT [facility] - 04/09/2025 5:33 AM [...] MD LAB BLOOD ORDERABLES Fi nal Result [facility]
[address] [place] [address], * Wound Culture - Swab, Leg, Right (04/08/2025 3:40 PM EDT) Wound Culture No growth at 3 days ALIZA 04/11/2025 10:40 AM EDT [facility] Gram Stain Few (2+) WBCs seen 04/11/2025 10:40 AM EDT [facility] Gram Stain No organisms seen 04/11/2025 10:40 AM EDT [facility] Swab Structure of right lower limb / Unknown 04/08/2025 3:40 PM EDT 04/08/2025 8:05 PM EDT us Sushil Dean Jr., MD MICROBIOLOGY - GENERAL ORDERABLES Final Result Performing Organization Address City/[facility]/ZIP Co de Phone Number [facility]
[address] [place] [address], [facility]
[address] [place] [address], * Anaerobic Culture - Swab, Leg, Right (04/08/2025 3:40 PM EDT) Anaerobic Culture No anaerobes isolated at 5 days ALIZA 04/13/2025 7:24 AM EDT [facility] Swab Structure of right lower limb / Unknown 04/08/2025 3:40 PM EDT 04/08/2025 8:05 PM EDT us Sushil Dean Jr., MD MICROBIOLOGY - GENERAL ORDERABLES Final Result Performing Organization Address City/[facility]/ZIP Co de Phone Number [facility]
[address] [place] [address], * Scan Slide (04/08/2025 8:41 AM EDT) RBC Morphology Normal Normal 04/08/2025 11:02 AM EDT [facility] WBC Morphology Normal Normal 04/08/2025 11:02 AM EDT [facility] Platelet Estimate Adequate Normal 04/08/2025 11:02 AM EDT [facility] Clumped Platelets Present None Seen 04/08/2025 11:02 AM EDT [facility] Blood Venipuncture / Unknown 04/08/2025 8:41 AM EDT 04/08/2025 9:10 AM EDT Una Minda PharmD LAB BLOOD ORDERABLES Final R esult [facility]
[address] [place] [address], * (ABNORMAL) CBC Auto Differential (04/08/2025 8:41 AM EDT) WBC 10.07 3.40 - 10.80 10*3/mm3 04/08/2025 11:02 AM EDT [facility] RBC 5.01 4.14 - 5.80 10*6/mm3 04/08/2025 11:02 AM EDT [facility] Hemoglobin 14.0 13.0 - 17.7 g/dL 04/08/2025 11:02 AM EDT [facility] Hematocrit 42.7 37.5 - 51.0 % 04/08/2025 11:02 AM EDT [facility] MCV 85.2 79.0 - 97.0 fL 04/08/2025 11:02 AM EDT [facility] MCH 27.9 26.6 - 33.0 pg 04/08/2025 11:02 AM EDT [facility] MCHC 32.8 31.5 - 35.7 g/dL 04/08/2025 11:02 AM EDT [facility] RDW 12.6 12.3 - 15.4 % 04/08/2025 11:02 AM EDT [facility] RDW-SD 38.9 37.0 - 54.0 fl 04/08/2025 11:02 AM [facility] MPV 11.0 6.0 - 12.0 fL 04/08/2025 11:02 AM [facility] Platelets 118(L) 140 - 450 10*3/mm3 04/08/2025 11:02 AM [facility] Neutrophil % 85.1(H) 42.7 - 76.0 % 04/08/2025 11:02 AM [facility] Lymphocyte % 9.3(L) 19.6 - 45.3 % 04/08/2025 11:02 AM [facility] Monocyte % 4.6(L) 5.0 - 12.0 % 04/08/2025 11:02 AM [facility] Eosinophil % 0.3 0.3 - 6.2 % 04/08/2025 11:02 AM [facility] Basophil % 0.2 0.0 - 1.5 % 04/08/2025 11:02 AM [facility] Immature Grans % 0.5 0.0 - 0.5 % 04/08/2025 11:02 AM [facility] Neutrophils, Absolute 8.57(H) 1.70 - 7.00 10*3/mm3 04/08/2025 11:02 AM [facility] Lymphocytes, Absolute 0.94 0.70 - 3.10 10*3/mm3 04/08/2025 11:02 AM [facility] Monocytes, Absolute 0.46 0.10 - 0.90 10*3/mm3 04/08/2025 11:02 AM [facility] Eosinophils, Absolute 0.03 0.00 - 0.40 10*3/mm3 04/08/2025 11:02 AM [facility] Basophils, Absolute 0.02 0.00 - 0.20 10*3/mm3 04/08/2025 11:02 AM [facility] Immature Grans, Absolute 0.05 0.00 - 0.05 10*3/mm3 04/08/2025 11:02 AM EDT [facility] nRBC 0.0 0.0 - 0.2 /100 WBC 04/08/2025 11:02 AM EDT [facility] Blood Venipuncture / Unknown 04/08/2025 8:41 AM EDT 04/08/2025 9:10 AM EDT Una Perla PharmD LAB BLOOD ORDERABLES Final R esult [facility]
[address] [place] [address], * (ABNORMAL) Basic Metabolic Panel (04/08/2025 8:41 AM EDT) Glucose 125(H) 65 - 99 mg/dL 04/08/2025 9:51 AM EDT [facility] BUN 13.2 6.0 - 20.0 mg/dL 04/08/2025 9:51 AM EDT [facility] Creatinine 0.69(L) 0.76 - 1.27 mg/dL 04/08/2025 9:51 AM EDT [facility] Sodium 136 136 - 145 mmol/L 04/08/2025 9:51 AM EDT [facility] Potassium 4.6 3.5 - 5.2 mmol/L 04/08/2025 9:51 AM EDT [facility] Chloride 102 98 - 107 mmol/L 04/08/2025 9:51 AM EDT [facility] CO2 23.5 22.0 - 29.0 mmol/L 04/08/2025 9:51 AM EDT [facility] Calcium 8.4(L) 8.6 - 10.5 mg/dL 04/08/2025 9:51 AM EDT [facility] BUN/Creatinine Ratio 19.1 7.0 - 25.0 04/08/2025 9:51 AM EDT [facility] Anion Gap 10.5 5.0 - 15.0 mmol/L 04/08/2025 9:51 AM EDT [facility] eGFR 117.0 >60.0 mL/min/1.7 3 04/08/2025 9:51 AM EDT [facility] Blood Venipuncture / Unknown 04/08/2025 8:41 AM EDT 04/08/2025 9:09 AM EDT Narrative [facility] - 04/08/2025 9:51 AM EDT [...] does not include race as a factor Susihl Dean Jr., MD LAB BLOOD ORDERABLES Fi nal Result Performing Organization Address City/[facility]/ZIP Co de Phone Number [facility]
[address] [place] [address], * Heparin Anti-Xa (04/08/2025 8:41 AM EDT) Heparin Anti-Xa ([facility]FH) 0.33 0.30 - 0.70 IU/ml 04/08/2025 9:40 AM EDT [facility] Blood Venipuncture / Unknown 04/08/2025 8:41 AM EDT 04/08/2025 9:10 AM EDT Sushil Dean Jr., MD LAB BLOOD ORDERABLES Fi nal Result Performing Organization Address City/[facility]/ZIP Co de Phone Number [facility]
[address] [place] [address], * FL C Arm During Surgery (04/07/2025 9:32 PM EDT) Narrative SYSTEMGENERATED, DOCUMENTATION - 04/07/2025 9:38 PM EDT This procedure was auto-finalized with no dictation required. us Sushil Dean Jr., MD IMG FLUOROSCOPY ORDERAB LES Final Result * Wound Culture - Swab, Leg, Right (04/07/2025 9:14 PM EDT) Wound Culture No growth at 3 days ALIZA 04/11/2025 10:40 AM EDT [facility] Gram Stain Occasional WBCs seen 04/11/2025 10:40 AM EDT [facility] Gram Stain No organisms seen 04/11/2025 10:40 AM EDT [facility] Swab Structure of right lower limb / Unknown Collection / Unknown 04/07/2025 9:14 PM EDT 04/08/2025 4:36 AM EDT us Sushil Dean Jr., MD MICROBIOLOGY - GENERAL ORDERABLES Final Result Performing Organization Address City/[facility]/ZIP Co de Phone Number [facility]
[address] [place] [address], [place] [phone] [facility]
[address] [place] [address], [place] [phone] * Anaerobic Culture - Swab, Leg, Right (04/07/2025 9:14 PM EDT) Anaerobic Culture No anaerobes isolated at 5 days ALIZA 04/13/2025 7:21 AM EDT [facility] Swab Structure of right lower limb / Unknown Collection / Unknown 04/07/2025 9:14 PM EDT 04/08/2025 4:36 AM EDT us Sushil Dean Jr., MD MICROBIOLOGY - GENERAL ORDERABLES Final Result [facility]
[address] [place] [address], * Anaerobic Culture - Tissue, Leg (04/07/2025 9:13 PM EDT) Anaerobic Culture No anaerobes isolated at 5 days ALIZA 04/13/2025 7:21 AM EDT [facility] Tissue Lower limb structure / Unknown Collection / Unknown 04/07/2025 9:13 PM EDT 04/08/2025 4:54 AM EDT Jason Álvarez DO MICROBIOLOGY - GENERAL ORDERABLE S Final Result Performing Organization Address [facility]/State/ZIP Co de Phone Number [facility]
[address] [place] [address], * Tissue / Bone Culture - Tissue, Leg, Right (04/07/2025 9:13 PM EDT) Tissue Culture No growth at 3 days ALIZA 04/11/2025 10:36 AM EDT [facility] Gram Stain Rare (1+) WBCs seen 04/11/2025 10:36 AM EDT [facility] Gram Stain No organisms seen 04/11/2025 10:36 AM EDT [facility] Tissue Structure of right lower limb / Unknown 04/07/2025 9:13 PM EDT 04/08/2025 4:54 AM EDT Sushil Dean Jr., MD MICROBIOLOGY - GENERAL ORDERABLES Final Result [facility]
[address] [place] [address], [facility]
[address] [place] [address], [place] [phone] * (ABNORMAL) Wound Culture - Swab, Leg, Right (04/07/2025 9:07 PM EDT) Wound Culture Light growth (2+) Staphylococcus aureus, MRSA(A) ALIZA 04/10/2025 10:38 AM EDT [facility] Comment: Methicillin resistant Staphylococcus aureus, Patient may be an isolation risk. Gram Stain Few (2+) WBCs seen 04/10/2025 10:38 AM EDT [facility] Gram Stain No organisms seen 10:38 AM EDT [facility] MD MICROBIOLOGY - GENERAL ORDERABLES Final Result [facility]
[address] [place] [address], [place] [phone] [facility]
[address] [place] [address], [place] [phone] * Anaerobic Culture - Swab, Leg, Right (04/07/2025 9:07 PM EDT) Anaerobic Culture No anaerobes isolated at 5 days ALIZA 04/13/2025 7:21 AM EDT [facility] Swab Structure of right lower limb / Unknown Collection / Unknown 04/07/2025 9:07 PM EDT 04/08/2025 4:36 AM EDT us Sushil Dean Jr., MD MICROBIOLOGY - GENERAL ORDERABLES Final Result [facility]
[address] [place] [address], * Heparin Anti-Xa (04/07/2025 9:10 AM EDT) Pathologist [facility] Heparin Anti-Xa ([facility]) 0.30 0.30 - 0.70 IU/ml 04/07/2025 10:12 AM EDT [facility] Blood Venipuncture / Unknown 04/07/2025 9:10 AM EDT 04/07/2025 9:38 AM EDT Una Perla PharmD LAB BLOOD ORDERABLES Final R esult Performing Organization Address City/[facility]/ZIP Co de Phone Number [facility]
[address] [place] [address], * (ABNORMAL) CBC Auto Differential (04/07/2025 9:10 AM EDT) Pathologist [facility] WBC 8.63 3.40 - 10.80 10*3/mm3 04/07/2025 9:50 AM EDT [facility] RBC 5.23 4.14 - 5.80 10*6/mm3 04/07/2025 9:50 AM EDT [facility] [facility] Hemoglobin 14.7 13.0 - 17.7 g/dL 04/07/2025 9:50 AM EDT [facility] Hematocrit 44.8 37.5 - 51.0 % 04/07/2025 9:50 AM EDT [facility] MCV 85.7 79.0 - 97.0 fL 04/07/2025 9:50 AM EDT [facility] MCH 28.1 26.6 - 33.0 pg 04/07/2025 9:50 AM EDT [facility] MCHC 32.8 31.5 - 35.7 g/dL 04/07/2025 9:50 AM EDT [facility] RDW 12.8 12.3 - 15.4 % 04/07/2025 9:50 AM [facility] RDW-SD 39.9 37.0 - 54.0 fl 04/07/2025 9:50 AM [facility] MPV 10.8 6.0 - 12.0 fL 04/07/2025 9:50 AM [facility] Platelets 149 140 - 450 10*3/mm3 04/07/2025 9:50 AM [facility] Neutrophil % 66.7 42.7 - 76.0 % 04/07/2025 9:50 AM [facility] Lymphocyte % 20.5 19.6 - 45.3 % 04/07/2025 9:50 AM [facility] Monocyte % 9.8 5.0 - 12.0 % 04/07/2025 9:50 AM [facility] Eosinophil % 2.1 0.3 - 6.2 % 04/07/2025 9:50 AM [facility] Basophil % 0.3 0.0 - 1.5 % 04/07/2025 9:50 AM [facility] Immature Grans % 0.6(H) 0.0 - 0.5 % 04/07/2025 9:50 AM [facility] Neutrophils, Absolute 5.75 1.70 - 7.00 10*3/mm3 04/07/2025 9:50 AM [facility] Lymphocytes, Absolute 1.77 0.70 - 3.10 10*3/mm3 04/07/2025 9:50 AM [facility] Monocytes, Absolute 0.85 0.10 - 0.90 10*3/mm3 04/07/2025 9:50 AM [facility] Eosinophils, Absolute 0.18 0.00 - 0.40 10*3/mm3 04/07/2025 9:50 AM [facility] Basophils, Absolute 0.03 0.00 - 0.20 10*3/mm3 04/07/2025 9:50 AM [facility] Immature Grans, Absolute 0.05 0.00 - 0.05 10*3/mm3 04/07/2025 9:50 AM EDT [facility] nRBC 0.0 0.0 - 0.2 /100 WBC 04/07/2025 9:50 AM EDT [facility] Blood Venipuncture / Unknown 04/07/2025 9:10 AM EDT 04/07/2025 9:38 AM EDT us Jason Álvarez DO LAB BLOOD ORDERABLES Final Resul t [facility]
[address] [place] [address], * (ABNORMAL) Basic Metabolic Panel (04/07/2025 9:10 AM EDT) Glucose 112(H) 65 - 99 mg/dL 04/07/2025 10:19 AM EDT [facility] BUN 13.1 6.0 - 20.0 mg/dL 04/07/2025 10:19 AM EDT [facility] Creatinine 0.77 0.76 - 1.27 mg/dL 04/07/2025 10:19 AM EDT [facility] Sodium 139 136 - 145 mmol/L 04/07/2025 10:19 AM EDT [facility] Potassium 4.2 3.5 - 5.2 mmol/L 04/07/2025 10:19 AM EDT [facility] Comment:Specimen hemolyzed. Result may be falsely elevated. Chloride 105 98 - 107 mmol/L 04/07/2025 10:19 AM EDT [facility] CO2 24.8 22.0 - 29.0 mmol/L 04/07/2025 10:19 AM EDT [facility] Calcium 8.6 8.6 - 10.5 mg/dL 04/07/2025 10:19 AM EDT [facility] BUN/Creatinine Ratio 17.0 7.0 - 25.0 04/07/2025 10:19 AM EDT [facility] Anion Gap 9.2 5.0 - 15.0 mmol/L 04/07/2025 10:19 AM EDT [facility] eGFR 113.2 >60.0 mL/min/1.7 3 04/07/2025 10:19 AM EDT [facility] Blood Venipuncture / Unknown 04/07/2025 9:10 AM EDT 04/07/2025 9:38 AM EDT Narrative [facility] - 04/07/2025 10:19 AM EDT [...] DO LAB BLOOD ORDERABLES Final Resul t [facility]
[address] [place] [address], * MRI Tibia Fibula Right With & [...] [place] 04/07/2025 9:58 AM EDT Workstation ID: [id number] Narrative 04/07/2025 9:58 AM EDT MRI TIBIA [...] [place] 04/07/2025 9:58 AM EDT Workstation ID: [id number] Sushil Dean Jr., MD IMG MRI ORDERABLES Mary Beth l Result * Heparin Anti-Xa (04/07/2025 1:42 AM EDT) [facility] Heparin Anti-Xa (UFH) 0.38 0.30 - 0.70 IU/ml 04/07/2025 2:14 AM EDT [facility] Blood Venipuncture / Unknown 04/07/2025 1:42 AM EDT 04/07/2025 1:54 AM EDT Chelsie Turpin [facility] LAB BLOOD ORDERABLES Final R esult [facility]
[address] [place] [address], * Heparin Anti-Xa (04/06/2025 7:16 PM EDT) [facility] Heparin Anti-Xa (UFH) 0.33 0.30 - 0.70 IU/ml 04/06/2025 7:50 PM EDT [facility] Blood Venipuncture / Unknown 04/06/2025 7:16 PM EDT 04/06/2025 7:35 PM EDT Cherri Beatty [facility] LAB BLOOD ORDERABLES Final Res ult Performing Organization Address [facility] Co de Phone Number [facility]
[address] [place] [address], * Potassium (04/06/2025 7:16 PM EDT) [facility] Potassium 4.0 3.5 - 5.2 mmol/L 04/06/2025 7:53 PM EDT [facility] Blood Venipuncture / Unknown 04/06/2025 7:16 PM EDT 04/06/2025 7:35 PM EDT Jason Álvarez DO LAB BLOOD ORDERABLES Final Resul t Performing Organization Address [facility] de Phone Number [facility]
[address] [place] [address], * (ABNORMAL) Heparin Anti-Xa (04/06/2025 12:36 PM EDT) [facility] Heparin Anti-Xa (UFH) 0.24(L) 0.30 - 0.70 IU/ml 04/06/2025 1:23 PM EDT [facility] Blood Venipuncture / Unknown 04/06/2025 12:36 PM EDT 04/06/2025 1:07 PM EDT Una Perla PharmD LAB BLOOD ORDERABLES Final R esult Performing Organization Address [facility] Co de Phone Number [facility]
[address] [place] [address], * (ABNORMAL) Heparin Anti-Xa (04/06/2025 3:42 AM EDT) [facility] Heparin Anti-Xa (UFH) 0.25(L) 0.30 - 0.70 IU/ml 04/06/2025 5:30 AM EDT [facility] Blood Venipuncture / Unknown 04/06/2025 3:42 AM EDT 04/06/2025 4:59 AM EDT Chelsie Dyana [facility] LAB BLOOD ORDERABLES Final R esult [facility]
[address] [place] [address], * (ABNORMAL) Basic Metabolic Panel (04/06/2025 3:42 AM EDT) [facility] Glucose 94 65 - 99 mg/dL 04/06/2025 5:59 AM EDT [facility] BUN 12.8 6.0 - 20.0 mg/dL 04/06/2025 5:59 AM EDT [facility] Creatinine 0.80 0.76 - 1.27 mg/dL 04/06/2025 5:59 AM EDT [facility] Sodium 138 136 - 145 mmol/L 04/06/2025 5:59 AM EDT [facility] Potassium 3.6 3.5 - 5.2 mmol/L 04/06/2025 5:59 AM EDT [facility] Chloride 103 98 - 107 mmol/L 04/06/2025 5:59 AM EDT [facility] CO2 24.2 22.0 - 29.0 mmol/L 04/06/2025 5:59 AM EDT [facility] Calcium 8.0(L) 8.6 - 10.5 mg/dL 04/06/2025 5:59 AM EDT [facility] BUN/Creatinine Ratio 16.0 7.0 - 25.0 04/06/2025 5:59 AM EDT [facility] Anion Gap 10.8 5.0 - 15.0 mmol/L 04/06/2025 5:59 AM EDT [facility] eGFR 111.9 >60.0 mL/min/1.7 3 04/06/2025 5:59 AM EDT [facility] Blood Venipuncture / Unknown 04/06/2025 3:42 AM EDT 04/06/2025 5:20 AM EDT [facility] - 04/06/2025 5:59 AM [...] DO LAB BLOOD ORDERABLES Final Resul t [facility]
[address] [place] [address], * (ABNORMAL) CBC Auto Differential (04/06/2025 3:41 AM EDT) WBC 10.86(H) 3.40 - 10.80 10*3/mm3 04/06/2025 5:04 AM EDT [facility] RBC 5.08 4.14 - 5.80 10*6/mm3 04/06/2025 5:04 AM EDT [facility] Hemoglobin 13.9 13.0 - 17.7 g/dL 04/06/2025 5:04 AM EDT [facility] Hematocrit 43.7 37.5 - 51.0 % 04/06/2025 5:04 AM EDT [facility] MCV 86.0 79.0 - 97.0 fL 04/06/2025 5:[facility] MCH 27.4 26.6 - 33.0 pg 04/06/2025 5:04 AM [facility] MCHC 31.8 31.5 - 35.7 g/dL 04/06/2025 5:04 AM [facility] RDW 12.8 12.3 - 15.4 % 04/06/2025 5:04 AM [facility] RDW-SD 40.0 37.0 - 54.0 fl 04/06/2025 5:04 AM [facility] MPV 11.7 6.0 - 12.0 fL 04/06/2025 5:04 AM [facility] Platelets 115(L) 140 - 450 10*3/mm3 04/06/2025 5:04 AM [facility] Neutrophil % 65.3 42.7 - 76.0 % 04/06/2025 5:04 AM [facility] Lymphocyte % 20.5 19.6 - 45.3 % 04/06/2025 5:04 AM [facility] Monocyte % 11.8 5.0 - 12.0 % 04/06/2025 5:04 AM [facility] Eosinophil % 1.8 0.3 - 6.2 % 04/06/2025 5:04 AM [facility] Basophil % 0.3 0.0 - 1.5 % 04/06/2025 5:04 AM [facility] Immature Grans % 0.3 0.0 - 0.5 % 04/06/2025 5:04 AM [facility] Neutrophils, Absolute 7.09(H) 1.70 - 7.00 10*3/mm3 04/06/2025 5:04 AM [facility] Lymphocytes, Absolute 2.23 0.70 - 3.10 10*3/mm3 04/06/2025 5:04 AM [facility] Monocytes, Absolute 1.28(H) 0.10 - 0.90 10*3/mm3 04/06/2025 5:04 AM EDT [facility] Eosinophils, Absolute 0.20 0.00 - 0.40 10*3/mm3 04/06/2025 5:04 AM EDT [facility] Basophils, Absolute 0.03 0.00 - 0.20 10*3/mm3 04/06/2025 5:04 AM EDT [facility] Immature Grans, Absolute 0.03 0.00 - 0.05 10*3/mm3 04/06/2025 5:04 AM EDT [facility] nRBC 0.0 0.0 - 0.2 /100 WBC 04/06/2025 5:04 AM EDT [facility] Blood Venipuncture / Unknown 04/06/2025 3:41 AM EDT 04/06/2025 4:58 AM EDT Jason Álvarez DO LAB BLOOD ORDERABLES Final Resul t Performing Organization Address City/[facility] Co de Phone Number [facility]
[address] [place] [address], [place] [phone] * Heparin Anti-Xa (04/05/2025 8:43 PM EDT) [facility] Heparin Anti-Xa (UFH) 0.38 0.30 - 0.70 IU/ml 04/05/2025 9:09 PM EDT [facility] Blood Venipuncture / Unknown 04/05/2025 8:43 PM EDT 04/05/2025 8:55 PM EDT us Cherri Beatty [facility] LAB BLOOD ORDERABLES Final Res ult Performing Organization Address City/[facility] Co de Phone Number [facility]
[address] [place] [address], [place] [phone] * CK (04/05/2025 12:15 PM EDT) Creatine Kinase 140 20 - 200 U/L 04/05/2025 1:31 PM EDT [facility] Blood Venipuncture / Unknown 04/05/2025 12:15 PM EDT 04/05/2025 1:03 PM EDT Carlton Mead MD LAB BLOOD ORDERABLES Final R esult Performing Organization Address City/[facility]/ZIP Co de Phone Number [facility]
[address] [place] [address], * (ABNORMAL) Heparin Anti-Xa (04/05/2025 12:15 PM EDT) [facility] Heparin Anti-Xa (UFH) 0.17(L) 0.30 - 0.70 IU/ml 04/05/2025 1:21 PM EDT [facility] Blood Venipuncture / Unknown 04/05/2025 12:15 PM EDT 04/05/2025 1:04 PM EDT Una Perla PharmD LAB BLOOD ORDERABLES Final R esult Performing Organization Address City/[facility] Co de Phone Number [facility]
[address] [place] [address], * (ABNORMAL) aPTT (04/05/2025 3:54 AM EDT) [facility] PTT 35.3(L) 60.0 - 90.0 seconds 04/05/2025 4:31 AM EDT [facility] Blood Venipuncture / Unknown 04/05/2025 3:54 AM EDT 04/05/2025 4:15 AM EDT Narrative [facility] - 04/05/2025 4:31 AM EDT PTT = The equivalent PTT values for the therapeutic range of heparin levels at 0.3 to 0.5 U/ml are 60 to 70 seconds. [employer] LAB BLOOD ORDERABLES Final R esult [facility]
[address] [place] [address], * Heparin Anti-Xa (04/05/2025 3:54 AM EDT) [facility]ologist [facility] Heparin Anti-Xa (UFH) 0.30 0.30 - 0.70 IU/ml 04/05/2025 4:32 AM EDT [facility] Blood Venipuncture / Unknown 04/05/2025 3:54 AM EDT 04/05/2025 4:15 AM EDT [employer] LAB BLOOD ORDERABLES Final R esult Performing Organization Address City/[facility]/ZIP Co de Phone Number [facility]
[address] [place] [address], * (ABNORMAL) CBC Auto Differential (04/05/2025 3:54 AM EDT) [facility] WBC 11.18(H) 3.40 - 10.80 10*3/mm3 04/05/2025 4:20 AM EDT [facility] RBC 5.00 4.14 - 5.80 10*6/mm3 04/05/2025 4:20 AM EDT [facility] Hemoglobin 13.9 13.0 - 17.7 g/dL 04/05/2025 4:20 AM EDT [facility] Hematocrit 42.4 37.5 - 51.0 % 04/05/2025 4:20 AM EDT [facility] MCV 84.8 79.0 - 97.0 fL 04/05/2025 4:20 AM EDT [facility] MCH 27.8 26.6 - 33.0 pg 04/05/2025 4:20 AM EDT [facility] MCHC 32.8 31.5 - 35.7 g/dL 04/05/2025 4:20 AM [facility] RDW 12.9 12.3 - 15.4 % 04/05/2025 4:20 AM [facility] RDW-SD 39.7 37.0 - 54.0 fl 04/05/2025 4:20 AM [facility] MPV 10.2 6.0 - 12.0 fL 04/05/2025 4:20 AM [facility] Platelets 160 140 - 450 10*3/mm3 04/05/2025 4:20 AM [facility] Neutrophil % 73.5 42.7 - 76.0 % 04/05/2025 4:20 AM [facility] Lymphocyte % 14.0(L) 19.6 - 45.3 % 04/05/2025 4:20 AM [facility] Monocyte % 11.0 5.0 - 12.0 % 04/05/2025 4:20 AM [facility] Eosinophil % 0.8 0.3 - 6.2 % 04/05/2025 4:20 AM [facility] Basophil % 0.3 0.0 - 1.5 % 04/05/2025 4:20 AM [facility] Immature Grans % 0.4 0.0 - 0.5 % 04/05/2025 4:20 AM [facility] Neutrophils, Absolute 8.23(H) 1.70 - 7.00 10*3/mm3 04/05/2025 4:20 AM [facility] Lymphocytes, Absolute 1.56 0.70 - 3.10 10*3/mm3 04/05/2025 4:20 AM [facility] Monocytes, Absolute 1.23(H) 0.10 - 0.90 10*3/mm3 04/05/2025 4:20 AM [facility] Eosinophils, Absolute 0.09 0.00 - 0.40 10*3/mm3 04/05/2025 4:20 AM [facility] Basophils, Absolute 0.03 0.00 - 0.20 10*3/mm3 04/05/2025 4:20 AM EDT [facility] Immature Grans, Absolute 0.04 0.00 - 0.05 10*3/mm3 04/05/2025 4:20 AM EDT [facility] nRBC 0.0 0.0 - 0.2 /100 WBC 04/05/2025 4:20 AM EDT [facility] Blood Venipuncture / Unknown 04/05/2025 3:54 AM EDT 04/05/2025 4:16 AM EDT Una Perla PharmD LAB BLOOD ORDERABLES Final R esult [facility]
[address] [place] [address], * (ABNORMAL) Basic Metabolic Panel (04/05/2025 3:54 AM EDT) Glucose 152(H) 65 - 99 mg/dL 04/05/2025 4:40 AM EDT [facility] BUN 17.3 6.0 - 20.0 mg/dL 04/05/2025 4:40 AM EDT [facility] Creatinine 0.92 0.76 - 1.27 mg/dL 04/05/2025 4:40 AM EDT [facility] Sodium 136 136 - 145 mmol/L 04/05/2025 4:40 AM EDT [facility] Potassium 3.9 3.5 - 5.2 mmol/L 04/05/2025 4:40 AM EDT [facility] Chloride 103 98 - 107 mmol/L 04/05/2025 4:40 AM EDT [facility] CO2 24.0 22.0 - 29.0 mmol/L 04/05/2025 4:40 AM EDT [facility] Calcium 7.8(L) 8.6 - 10.5 mg/dL 04/05/2025 4:40 AM EDT [facility] BUN/Creatinine Ratio 18.8 7.0 - 25.0 04/05/2025 4:40 AM EDT [facility] Anion Gap 9.0 5.0 - 15.0 mmol/L 04/05/2025 4:40 AM EDT [facility] eGFR 105.2 >60.0 mL/min/1.7 3 04/05/2025 4:40 AM EDT [facility] Blood Venipuncture / Unknown 04/05/2025 3:54 AM EDT 04/05/2025 4:15 AM EDT [facility] - 04/05/2025 4:40 AM [...] MD LAB BLOOD ORDERABLES Final Re sult [facility]
[address] [place] [address], * (ABNORMAL) aPTT (04/05/2025 12:18 AM EDT) PTT 33.6(L) 60.0 - 90.0 seconds 04/05/2025 12:53 AM EDT [facility] Blood Venipuncture / Unknown 04/05/2025 12:18 AM EDT 04/05/2025 12:37 AM EDT [facility] - 04/05/2025 12:53 AM EDT PTT = The equivalent PTT values for the therapeutic range of heparin levels at 0.3 to 0.5 U/ml are 60 to 70 seconds. [employer] LAB BLOOD ORDERABLES Final R esult [facility]
[address] [place] [address], [place] [phone] * (ABNORMAL) Protime-INR (04/05/2025 12:18 AM EDT) Protime 15.9(H) 12.2 - 15.3 Seconds 04/05/2025 12:53 AM EDT [facility] INR 1.19(H) 0.89 - 1.12 04/05/2025 12:53 AM EDT [facility] Blood Venipuncture / Unknown 04/05/2025 12:18 AM EDT 04/05/2025 12:37 AM EDT [employer] LAB BLOOD ORDERABLES Final R esult Performing Organization Address [facility] Co de Phone Number [facility]
[address] [place] [address], [place] [phone] * Heparin Anti-Xa (04/05/2025 12:18 AM EDT) Pathologist [facility] Heparin Anti-Xa (UFH) 0.39 0.30 - 0.70 IU/ml 04/05/2025 12:54 AM EDT [facility] Blood Venipuncture / Unknown 04/05/2025 12:18 AM EDT 04/05/2025 12:37 AM EDT [employer] LAB BLOOD ORDERABLES Final R esult Performing Organization Address City/[facility]/ZIP Co de Phone Number [facility]
[address] [place] [address], [place] [phone] * MRI Tibia Fibula Right With & [...] MD 04/04/2025 11:00 PM EDT Workstation ID: [id number] Narrative 04/04/2025 11:00 PM EDT MRI TIBIA [...] MD 04/04/2025 11:00 PM EDT Workstation ID: [id number] Leonora Shepherd MD IMG MRI ORDERABLES Final Resu lt * POC Creatinine (04/04/2025 2:49 PM EDT) Creatinine 1.10 0.60 - 1.30 mg/dL 04/07/2025 7:14 PM EDT [facility] Comment:Serial Number: [id number] 7Operator: [id number] Venous Blood 04/04/2025 2:49 PM EDT 04/07/2025 7:14 PM EDT Jason Álvarez DO POINT OF CARE TEST ORDERABLES Fi nal Result [facility]
[address] [place] [address], [place] [phone] * (ABNORMAL) CBC Auto Differential (04/04/2025 2:47 PM EDT) [facility] Signature WBC 12.72(H) 3.40 - 10.80 10*3/mm3 04/04/2025 2:56 PM EDT [facility] RBC 5.64 4.14 - 5.80 10*6/mm3 04/04/2025 2:56 PM EDT [facility] Hemoglobin 15.3 13.0 - 17.7 g/dL 04/04/2025 2:56 PM EDT [facility] Hematocrit 47.9 37.5 - 51.0 % 04/04/2025 2:56 PM EDT [facility] MCV 84.9 79.0 - 97.0 fL 04/04/2025 2:56 PM EDT [facility] MCH 27.1 26.6 - 33.0 pg 04/04/2025 2:56 PM EDT [facility] MCHC 31.9 31.5 - 35.7 g/dL 04/04/2025 2:56 PM EDT [facility] RDW 13.1 12.3 - 15.4 % 04/04/2025 2:56 PM EDT [facility] RDW-SD 40.3 37.0 - 54.0 fl 04/04/2025 2:56 PM EDT [facility] MPV 9.4 6.0 - 12.0 fL 04/04/2025 2:56 PM EDT [facility] Platelets 232 140 - 450 10*3/mm3 04/04/2025 2:56 PM EDT [facility] Neutrophil % 74.9 42.7 - 76.0 % 04/04/2025 2:56 PM EDT [facility] Lymphocyte % 13.1(L) 19.6 - 45.3 % 04/04/2025 2:56 PM EDT [facility] Monocyte % 11.2 5.0 - 12.0 % 04/04/2025 2:56 PM EDT [facility] Eosinophil % 0.4 0.3 - 6.2 % 04/04/2025 2:56 PM EDT [facility] Basophil % 0.2 0.0 - 1.5 % 04/04/2025 2:56 PM EDT [facility] Immature Grans % 0.2 0.0 - 0.5 % 04/04/2025 2:56 PM EDT [facility] Neutrophils, Absolute 9.52(H) 1.70 - 7.00 10*3/mm3 04/04/2025 2:56 PM EDT [facility] Lymphocytes, Absolute 1.66 0.70 - 3.10 10*3/mm3 04/04/2025 2:56 PM EDT [facility] Monocytes, Absolute 1.43(H) 0.10 - 0.90 10*3/mm3 04/04/2025 2:56 PM EDT [facility] Eosinophils, Absolute 0.05 0.00 - 0.40 10*3/mm3 04/04/2025 2:56 PM EDT [facility] Basophils, Absolute 0.03 0.00 - 0.20 10*3/mm3 04/04/2025 2:56 PM EDT [facility] Immature Grans, Absolute 0.03 0.00 - 0.05 10*3/mm3 04/04/2025 2:56 PM EDT [facility] nRBC 0.0 0.0 - 0.2 /100 WBC 04/04/2025 2:56 PM EDT [facility] Blood Venipuncture / Unknown 04/04/2025 2:47 PM EDT 04/04/2025 2:52 PM EDT us Mario Crowley DO LAB BLOOD ORDERABLES Fin al Result [facility]
[address] [place] [address], * (ABNORMAL) C-reactive Protein (04/04/2025 2:47 PM EDT) Pathologist [facility] C-Reactive Protein 8.57(H) 0.00 - 0.50 mg/dL 04/04/2025 3:26 PM EDT [facility] Blood Venipuncture / Unknown 04/04/2025 2:47 PM EDT 04/04/2025 2:52 PM EDT Mario Ortiz Keo LAB BLOOD ORDERABLES Fin al Result [facility]
[address] [place] [address], * (ABNORMAL) Sedimentation Rate (04/04/2025 2:47 PM EDT) [facility] Sed Rate 51(H) 0 - 15 mm/hr 04/04/2025 3:06 PM EDT [facility] Blood Venipuncture / Unknown 04/04/2025 2:47 PM EDT 04/04/2025 2:52 PM EDT Mario Ortiz Keo LAB BLOOD ORDERABLES Fin al Result Performing Organization Address City/[facility]/ZIP Co de Phone Number [facility]
[address] [place] [address], * Comprehensive Metabolic Panel (04/04/2025 2:47 PM EDT) [facility] Glucose 90 65 - 99 mg/dL 04/04/2025 3:26 PM EDT [facility] BUN 18.3 6.0 - 20.0 mg/dL 04/04/2025 3:26 PM EDT [facility] Creatinine 0.94 0.76 - 1.27 mg/dL 04/04/2025 3:26 PM EDT [facility] Sodium 136 136 - 145 mmol/L 04/04/2025 3:26 PM EDT [facility] Potassium 3.8 3.5 - 5.2 mmol/L 04/04/2025 3:26 PM EDT [facility] Chloride 100 98 - 107 mmol/L 04/04/2025 3:26 PM EDT [facility] CO2 25.3 22.0 - 29.0 mmol/L 04/04/2025 3:26 PM EDT [facility] Calcium 8.6 8.6 - 10.5 mg/dL 04/04/2025 3:26 PM EDT [facility] Total Protein 7.3 6.0 - 8.5 g/dL 04/04/2025 3:26 PM EDT [facility] Albumin 4.1 3.5 - 5.2 g/dL 04/04/2025 3:26 PM EDT [facility] ALT (SGPT) 26 1 - 41 U/L 04/04/2025 3:26 PM EDT [facility] AST (SGOT) 25 1 - 40 U/L 04/04/2025 3:26 PM EDT [facility] Alkaline Phosphatase 106 39 - 117 U/L 04/04/2025 3:26 PM T [facility] Total Bilirubin 1.0 0.0 - 1.2 mg/dL 04/04/2025 3:26 PM EDT [facility] Globulin 3.2 gm/dL 04/04/2025 3:26 PM T [facility] Comment:Calculated Result A/G Ratio 1.3 g/dL 04/04/2025 3:26 PM EDT [facility] BUN/Creatinine Ratio 19.5 7.0 - 25.0 04/04/2025 3:26 PM T [facility] Anion Gap 10.7 5.0 - 15.0 mmol/L 04/04/2025 3:26 PM T [facility] eGFR 102.5 >60.0 mL/min/1.7 3 04/04/2025 3:26 PM [facility] Blood Venipuncture / Unknown 04/04/2025 2:47 PM EDT 04/04/2025 2:52 PM EDT Narrative [facility] - 04/04/2025 3:26 PM EDT [...] DO LAB BLOOD ORDERABLES Fin al Result [facility]
[id number] [place] [address], documented in this encounter Visit Diagnoses Diagnosis [...] proper disposal. 0831 (Given - Provider: Amber Saalzar, KELL)1943 (Given - Provider: Anahy Marcelino, GAMING DIRECTOR)2129 (Canceled Entry - Provider: Anahy Marcelino GAMING DIRECTOR - Comment: previously given) 0837 (Given - [...] medication prescribed for a lower pain scale. ([facility]) If given for pain, use the [...] Dillon RN) 2030 (Given - Provider: Alberto iDllon RN) sodium chloride 0.9 % flush 10 [...] Continuous Medication Order 04/09/2025 04/10/2025 04/11/2025 heparin 06770 units/250 mL (100 units/mL) in 0.45 % [...] Shirley Hart, RN)1628 (Given - Provider: Shirley aHrt, RN)1815 (Given - Provider: Shirley Hart, RN)2033 (Given - Provider: Alberto Dillon, LU)2245 (Given - Provider: Alberto Dillon, RN) 0109 (Given - Provider: Alberto Dillon RN)0655 (Given - Provider: Alberto Dillon, RN)1414 (Given - Provider: Shirley Hart, LU)2124 (Given - Provider: Alberto Dillon, LU) 1003 (Given - Provider: Marguerite Wakfeield RN) Magnesium Standard Dose Replacement - Follow [...] documented as of this encounter Care Teams [employer] Manager Relationship Specialty Start Date End Date Provider, [place] [address] PCP - General 05/09/23 documented as of this encounter
--- OUTSIDE RECORDS SUMMARY | 2025-04-08 14:34 | XMS_ITS | Encounter Summary ---
Author Organization [facility] Address [address] [place] [address] Care Team Providers Care Real Estate Office Manager Name Role Phone Provider, No Known Primary Care Provider Unavail able Reason for Visit * Auth/Cert Specialty Diagnoses / Procedures Referred By Bulmaro muniz Referred To Contact Diagnoses Right BKA infection Referral ID Status Reason Start Date Expiration Date Visits Re quested Visits Authorized [id number] 1 1 Encounter Details Date Type Department Care Team (Late st Contact Info) Description 04/08/2025 3:34 PM EDT Anesthesia Event [facility] OR [address] [place] [address] Ulises Hoffman MD [address] [place] [address] Jairo Brooks MD [address] [place] [address] Anesthesia Record Procedure Summary Procedure Name Responsible [...] = 0.6 oz pur e alcohol) [facility] Utilities Answer Date Recorded In the past 12 months has [employer], oil, or water [employer] threatened to shut off services in your [...] or training? 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
[2025-05-16 08:42] VITALS: BP 114/53; PULSE 81; RESP 18; TEMP 36.6; O2SAT 98
[2025-05-16] MEDS: DAPTOmycin 1,000 MG in 0.9 % SODIUM CHLORIDE 50 ML 100 MG IV (08:42)
[2025-05-16] MEDS: SODIUM CHLORIDE 0.9% 10ML FLUSH SYRINGE 10 ML IV (08:44)
--- OUTSIDE RECORDS SUMMARY | 2025-05-16 08:47 | XMS_ITS | Clinical Summary ---
Author Organization [facility] Address [address] [facility] [address] [place] [address] Phone Care Team Providers Care Organ Recovery Coordinator Name Role Phone Unavailable Unavailable Conditions or Problems No information available. Medications No information available. Medications Administered No information available. Allergies, Adverse Reactions, Alerts No information available. Results No information available. Plan of Care No information available. Procedures No information available. Vital Signs No information available. Immunizations No information available. Advance Directives No information available.
--- OUTSIDE RECORDS SUMMARY | 2025-05-16 08:48 | XMS_ITS | Continuity of Care Document ---
Author Organization [facility] Infectious Disease -105 Address [address] [facility] [address] [place] [address] Care Team Providers Care Section Plotter Operator Name Role Phone SYBIL WILLIAM Primary [...] ne hyclate 100 mg capsule 2024 025 [facility], [address], [address], 05/05/2025 10:47:50 Patient TargetsNo targets recorded. Patient InstructionsNo instructions recorded. Reason for Referral None Reported. Results Created Date Observation Date Name Description Value Unit Range Abnormal Flag Note LastModifiedBy Organization Detail LastModifiedTime Result Notes None recorded. Problems Name Problem SNOMED Code Status Onset Date Resolution Date Notes Provider Name and Address Organization Details Recorded Time Methicillin resistant Staphylococ cus aureus infection 822177134 Active 2023 YVON Palomo [facility] & [place] 10:16:00 High risk medication monitoring indicated 2872860617846 9103 Active 2023 YVON Palomo [facility] & [place] 10:16:36 Problem Notes None recorded. Procedures Surgical History Date Name Laterality Status Provider Name and Address Organization Details Recorded Time 03/26/20 24 Venipuncture cancelled Luci Ag PA-C [address] , [place], [address], [facility] & [place] 03/18/2024 14:56:10 10/24/19 24 Venipuncture completed Luci Ag PA-C [address], [place], [address], [facility] & [place] 10/23/2023 10:53:19 07/25/19 24 Venipuncture completed [facility] & [place] 07/25/2023 14:41:20 amputation of lower limb completed [facility] & [place] 07/25/2023 13:57:05 Imaging Results None recorded. Procedure Notes None recorded. Medical Equipment None Reported. Allergies Allergen ID Allergen Name Allergen Category Reaction Reaction Severity Criticality Documentation Date Start Date Code Code System Note Provider Name and Address Organization Details Recorded Time 931258 cefdinir medicatio n Not available Not available Not available 06/02/2023 85147 RxNorm Isabel Kay [facility] & [place] 10:06:00 Medications Name Sig Start [...] active Not Available Not Available Not Available [facility] 10 billion cell-200 mg sprinkle [...] /min 94 % 94 % 41.8 kg/m2 151463. 71 g 97.5 [degF] 120/70 mm[Hg] Amy Farnsworth [facility] & [place] 10:30:54 Social History Question Answer Notes LastModified by Organizat ion Details LastModified Time Tobacco Smoking Status Never Smoker [facility] & [place] 06/02/2023 10:06:28 Do You Have An Advance Directive? No [email or web address] Information not available 04/28/2025 Are You Blind Or Do You Have Difficulty Seeing? No Information not available 04/28/2025 What Was The Date Of Your Most Recent Tobacco Screening? 04/20/2025 Information not available 04/28/2025 Are You Passively Exposed To Smoke? No [email or web address] Information not available 04/28/2025 Sex: Unknown Functional Status Question Answer Note LastModified by Organizat ion Details LastModified Time Do you use any illicit or recreational drugs? No [email or web address] Information not available 07/25/2023 What is your level of alcohol consumption? None [email or web address] Information not available 04/28/2025 Mental Status None recorded. Family History Nothing Reported. Medical History Condition Response Clotting Disorder Y Back Problems Y Hypertension Y Immunizations Vaccine Type Date Status Note Provider Nam kirt and Address Organization Details Recorded Time Td (adult), 2 Lf tetanus toxoid, preservative free, adsorbed 6 completed [facility] [place] - [facility] - [place] & [place] 07/25/2023 13:54:15 Past Encounters Encounter ID Performer Location Encounter Start Date Encounter Closed Date Diagnosis/Indication Diagnosis SNOMED-CT Code Diagnosis ICD10 Code Diagnosis IMO Codes Diagnosis Note [id number] Randy Torres MD [facility] Infectiou s Disease -[address] [place] [address] 04/28/2025 11:00:57 04/28/2025 11:33:23 Osteomyelitis 32833735 M86.9 709498 This patient has a recurrentc hronic osteomyeli [...] week. Methicilli n resistant Staphylococcus aureus infection 845789583 B95.62 8691546 As above [id number] Randy Torres MD [facility] Infectiou s Disease -[address] [place] [address] 05/05/2025 10:21:03 05/05/2025 10:37:01 Chronic osteomyelitis of right tibia 7818036903 885551 M86.461 02365776 This is recurrent and involves the right [...] today. Methicilli n resistant Staphylococcus aureus infection 327578660 A49.02 507821 This is the pathogen as above. Taking hig h risk medication 3520057887 07768 Z79.450 0108121 This is related to the long-term intravenou [...] Brantley Member ID Guarantor Name 05/05/2025 2 [facility] - FFS/TRADITIO NAL Won Dennis [id number] Won Dennis 05/05/2025 1 MEDICARE[place]ICARE[place] Won Dennis [id number] Won Dennis Notes Date Note Type Note [...] once daily at the infusion center in [facility]. His stump is doing well. All surgical incisions remain healed. There has been no undue pain or swelling. No redness. No drainage. Randy Torres MD [address] [facility], [place], [address], [place] - [facility] - [place] & [place] 05/05/2025 10:41:36
--- OUTSIDE RECORDS SUMMARY | 2025-05-16 08:48 | XMS_ITS | Patient Health Record ---
[facility] [address] [facility] [address] YVON Sykes [id number] Care Team Providers Care Dogger Name Role Phone Zeeshan Salazar Primary Care [...] W/U Status Risk Notes Problem Essential hypertension (56495668) HTN [Hypertension] (401.9) Active confirmed appears resolved Problem Hypothyroidism (85707660) Hypothyroidism NOS (244.9) Active confirmed Problem Hyperlipidemia (67458273) Hyperlipidemia (272.4) Active confirmed Problem Constipation (85172617) Constipation, unspecified constipation type (K59.00) Active confirmed Problem History of pulmonary embolism on long-term anticoagulation therapy (78883630035271814 ) Hx pulmonary embolism (Z86.711) Active confirmed Problem Long-term current use of anticoagulant (384952651) 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.01) Active confirmed Problem Adjustment disorder with anxious mood (74150735) Adjustment disorder with anxious mood (F43.22) Active confirmed Problem History of pulmonary embolus (004412799) History of pulmonary embolus (PE) (Z86.711) Active confirmed Problem Methicillin resistant Staphylococcus aureus infection (disorder) (843049466) Infection of wound due to methicillin resistant Staphylococcus aureus (MRSA) (A49.02) Active confirmed Problem Arthritis of knee (582118787) Arthritis of knee (M17.10) Active confirmed Problem Amputated below knee (801534008) Status post below knee amputation of right lower extremity (Z89.511) Active confirmed Problem Gastroesophageal reflux disease (748541165) Gastroesophageal reflux disease, unspecified whether esophagitis present [...]
--- OUTSIDE RECORDS SUMMARY | 2025-05-16 08:48 | XMS_ITS | Continuity of Care Document ---
Author Organization [facility] Infectious Disease -105 Address [address] [place] [address] Care Team Providers Care Tester Operator Name Role Phone SYBIL WILLIAM Primary [...] Time Methicillin resistant Staphylococ cus aureus infection 533361675 Active 2023 Amy jaramillo [place] [facility] & [place] 4 10:16:00 High risk medication monitoring indicated 6019617459320 9103 Active 2023 Amy jaramillo [place] [facility] & [place] 4 10:16:36 Problem Notes None recorded. Procedures Surgical History Date Name Laterality Status Provider Name and Address Organization Details Recorded Time 03/26/20 24 Venipuncture cancelled Luci Ag PA-C [address] , [place], [address], [facility] & [place] 03/18/2024 14:56:10 10/24/19 24 Venipuncture completed Luci Ag PA-C [address] [facility], [place], [address], [facility] & [place] 10/23/2023 10:53:19 07/25/19 24 [facility] [place] 07/25/2023 14:41:20 [facility] [place] 07/25/2023 13:57:05 Imaging Results None recorded. Procedure Notes None recorded. Medical Equipment None Reported. Allergies Allergen ID Allergen Name Allergen Category Reaction Reaction Severity Criticality Documentation Date Start Date Code Code System Note Provider Name and Address Organization Details Recorded Time 047221 cefdinir medicatio n Not available Not available Not available 06/02/2023 38243 RxNorm Isabel Kay [facility] & [place] 10:06:00 Medications Name Sig Start [...] active Not Available Not Available Not Available [facility] 10 billion cell-200 mg [...] % 94 % 98.8 [degF] 41.7 kg/m2 698805. 12 g 140/96 mm[Hg] Amy Aquino [facility] & [place] 11:13:21 Social History Question Answer Notes LastModified by [employer] ion Details LastModified Time Tobacco Smoking Status Never Smoker Isabel Rahul [facility] 06/02/2023 10:06:28 Do You Have An Advance Directive? No [email or web address] Information not available 04/28/2025 Are You Blind Or Do You Have Difficulty Seeing? No [email or web address] Information not available 04/28/2025 What Was The Date Of Your Most Recent Tobacco Screening? 04/20/2025 [email or web address] Information not available 04/28/2025 Are You Passively Exposed To Smoke? No [email or web address] Information not available 04/28/2025 Sex: Unknown Functional Status Question Answer Note LastModified by [employer] Details LastModified Time Do you use any illicit or recreational drugs? No [email or web address] Information not available 07/25/2023 What is your level of alcohol consumption? None [email or web address] Information not available 04/28/2025 Mental Status None recorded. Family History Nothing Reported. Medical History Condition Response Clotting Disorder Y Back Problems Y Hypertension Y Immunizations Vaccine Type Date Status Note Provider Nam e and Address Organization Details Recorded Time Td (adult), 2 Lf tetanus toxoid, preservative free, adsorbed 6 completed Sarah Vidal [facility], [place] - [facility] & [place] 07/25/2023 13:54:15 Past Encounters Encounter ID Performer Location Encounter Start Date Encounter Closed Date Diagnosis/Indication Diagnosis SNOMED-CT Code Diagnosis ICD10 Code Diagnosis IMO Codes Diagnosis Note [id number] Randy Torres MD [facility] Infectiou s Disease -[address] [place] [address] 04/28/2025 11:00:57 04/28/2025 11:33:23 Osteomyelitis 81326695 M86.9 988877 This patient has a recurrentc hronic osteomyeli [...] week. Methicilli n resistant Staphylococcus aureus infection 702108337 B95.62 5504140 As above Health Concerns Section Related Observation LastModified by Organization Detai ls LastModified Time None Recorded Concern Status LastModified by Organization Details LastModified Time None Recorded Payers Encounter Date Sequence Insurance Name Policy Number Policy Brantley Covered Member ID Brantley Member ID Guarantor Name 04/28/2025 2 [place] HEALTH CHOICES - FFS/TRADITIONA L Won Dennis [id number] Won Dennis 04/28/2025 3 [employer] - [place] (MEDICAID REPLACEMENT - HMO) Won Dennis [id number] Won Sonny Notes Date Note Type Note [...] issues tolerating the daptomycin. Randy Torres MD [address] [facility], [place], [address], [facility] - [facility] - [place] & [place] 04/28/2025 11:42:44
--- OUTSIDE RECORDS SUMMARY | 2025-05-16 08:49 | XMS_ITS | Data Portability ---
Author Organization [place] - [facility] & [place] [facility] ADMIN Address [address] [place] [id number] Care Team Providers Care News Anchor Name Role Phone SYBIL WILLIAM Primary Care Provider Assessment No assessment recorded. Plan of Treatment Reminders Order Date Submit Date Provider Last Modified By Organization Details Last Modified Time Details Appointments Establish ed Visit 15 min 2024 10:15A Jadyn Torres MD Not available Not available Not available Lab C-reactiv e protein, quantitat nasim, serum or plasma [address] [facility], [address] [facility], [place], [address], 05/02/2024 17:36:31 ESR (erythroc yte sedimenta tion rate), blood [address] [facility], 1140 [facility], [place], [address], 05/02/2024 17:36:31 C-reactiv e protein, quantitat nasim, serum or plasma 2023 024 [place] [address] [facility], [address], [address], [place], [address], 11/01/2023 08:08:32 ESR (erythroc yte sedimenta tion rate), blood 2023 024 [place] [address] [facility], [address], [address], [place], [address], 11/01/2023 08:08:32 CBC w/ auto diff 2023 024 [facility], [address], [place], [address], 10/24/2023 16:12:13 CMP, serum or plasma 2023 024 [facility], [address], [place], [address], 10/24/2023 16:42:07 Referral None recorded. Procedures None recorded. Surgeries None recorded. Imaging None recorded. Medication Orders doxycycli ne hyclate 100 mg capsule 2024 025 [facility], [address], [address], 05/05/2025 10:47:50 doxycycli ne hyclate 100 mg capsule [address], [address], [address], 05/05/2025 10:31:23 Patient TargetsNo targets recorded. Patient InstructionsNo instructions recorded. Reason for Referral None Reported. Results Created Date Observation Date Name Description Value Unit Range Abnormal Flag Note LastModifiedBy Organization Detail LastModifiedTime 10/24/1910/24/2023 CBC AUTO W DIFF WBC 6.9 K/uL 4.0-10 .5 Not Available [facility] ([facility]) [address], [place], [address], 10/24/2023 16:12:13 10/24/19 24 10/24/2023 CBC AUTO W DIFF RBC 5.7 M/mm3 4.7-6. 1 Not Available [facility] ([facility]) [address], [place], [address], 10/24/2023 16:12:13 10/24/19 24 10/24/2023 CBC AUTO W DIFF HGB 14.7 gm/dL 13.5-1 8.0 Not Available [facility] ([facility]) [address] , [place], [address], 10/24/2023 16:12:13 10/24/19 24 10/24/2023 CBC AUTO W DIFF HCT 46.0 % 42.0-5 2.0 Not Available [facility] ([facility]) [address] , [place], [address], 10/24/2023 16:12:13 10/24/19 24 10/24/2023 CBC AUTO W DIFF MCV 80.4 fL 78-100 Not Available [facility] ([facility]) [address] , [place], [address], 10/24/2023 16:12:13 10/24/19 24 10/24/2023 CBC AUTO W DIFF MCH 25.7 pg 27-31 low Not Available [facility] ([facility]) [address] , [place], [address], 10/24/2023 16:12:13 10/24/19 24 10/24/2023 CBC AUTO W DIFF MCHC 32.0 g/dL 32-36 Not Available [facility] ([facility]) [address] , [place], [address], 10/24/2023 16:12:13 10/24/19 24 10/24/2023 CBC AUTO W DIFF RDW 14.3 % 11.5-1 4.0 high Not Available [facility] ([facility]) [address] [place], [address], 10/24/2023 16:12:13 10/24/19 24 10/24/2023 CBC AUTO W DIFF platelet count 258 K/uL 150-45 0 Not Available [facility] ([facility]) [address] [facility] [place] [facility] [place], [address], 10/24/2023 16:12:13 10/24/19 24 10/24/2023 CBC AUTO W DIFF MPV 9.6 fL 6-9.5 high Not Available [facility] ([facility]) [address], [place], [address], 10/24/2023 16:12:13 10/24/19 24 10/24/2023 CBC AUTO W DIFF neutrophil% 70.1 % 43-65 high Not Available [facility] ([facility]) [address], [place], [address], 10/24/2023 16:12:13 10/24/19 24 10/24/2023 CBC AUTO W DIFF lymphocyte% 18.4 % 20.5-4 5.5 low Not Available [facility] ([facility]) [address], [place], [address], 10/24/2023 16:12:13 10/24/19 24 10/24/2023 CBC AUTO W DIFF monocyte% 8.7 % 5.5-11 .7 Not Available [facility] ([facility]) [address] [facility], [place], [address], 10/24/2023 16:12:13 10/24/19 24 10/24/2023 CBC AUTO W DIFF eosinophil% 2.3 % 0.9-2. 9 Not Available [facility] ([facility]) [address] [place], [address], 10/24/2023 16:12:13 10/24/19 24 10/24/2023 CBC AUTO W DIFF basophil% 0.4 % 0.2-1. 0 Not Available [facility] ([facility]) [address] [place], [address], 10/24/2023 16:12:13 10/24/19 24 10/24/2023 CBC AUTO W DIFF immature granulocytes % 0.1 % 0.0-0. 8 Not Available [facility] ([facility]) [address], [place], [address], 10/24/2023 16:12:13 10/24/19 24 10/24/2023 CBC AUTO W DIFF nucleated red blood cells % 0.0 % Not Available [facility] ([facility]) [address], [place], [address], 10/24/2023 16:12:13 10/24/19 24 10/24/2023 CBC AUTO W DIFF neutrophil# 4.8 K/uL 2.2-4. 8 Not Available [facility] ([facility]) [address] [facility], [place], [address], 10/24/2023 16:12:13 10/24/19 24 10/24/2023 CBC AUTO W DIFF lymphocyte# 1.3 cell/ mcL 1.3-2. 9 Not Available [facility] ([facility]) [address], [place], [address], 10/24/2023 16:12:13 10/24/19 24 10/24/2023 CBC AUTO W DIFF monocyte# 0.6 cell/ mcL 0.3-0. 8 Not Available [facility] ([facility]) [address] [facility], [place], [address], 10/24/2023 16:12:13 10/24/19 24 10/24/2023 CBC AUTO W DIFF eosinophil# 0.2 cell/ mcL 0-0.2 Not Available [facility] ([facility]) [address] [facility], [place], [address], 10/24/2023 16:12:13 10/24/19 24 10/24/2023 CBC AUTO W DIFF basophil# 0.0 cell/ mcL 0.0-1. 0 Not Available [facility] ([facility]) [address] [place], [address], 10/24/2023 16:12:13 10/24/19 24 10/24/2023 CBC AUTO W DIFF immature gramulocytes # 0.01 K/uL Not Available [facility] ([facility]) [address], [place], [address], 10/24/2023 16:12:13 10/24/19 24 10/24/2023 CBC AUTO W DIFF nucleated red blood cells # 0.00 K/uL Not Available [facility] ([facility]) [address] , [place], [address], 10/24/2023 16:12:13 10/24/19 24 10/24/2023 CBC AUTO W DIFF manual differential NO Not Available [facility] ([facility]) [address] , [place], [address], 10/24/2023 16:12:13 10/24/19 24 10/24/2023 COMP METAB OLIC PANEL sodium 139 mmol/ L 136-14 5 Not Available [facility] ([facility]) [address], [place], [address], 10/24/2023 16:42:07 10/24/19 24 10/24/2023 COMP METAB OLIC PANEL potassium 4.0 mmol/ L 3.6-5. 0 Not Available [facility] ([facility]) [address] , [place], [address], 10/24/2023 16:42:07 10/24/19 24 10/24/2023 COMP METAB OLIC PANEL chloride 104 mmol/ L 98-107 Not Available [facility] ([facility]) [address] [place], [address], 10/24/2023 16:42:07 10/24/19 24 10/24/2023 COMP METAB OLIC PANEL carbon dioxide 28.1 mmol/ L 21.0-3 2.0 Not Available [facility] ([facility]) [address], [place], [address], 10/24/2023 16:42:07 10/24/19 24 10/24/2023 COMP METAB OLIC PANEL anion gap 10.9 Not Available [facility] ([facility]) [address], [place], [address], 10/24/2023 16:42:07 10/24/19 24 10/24/2023 COMP METAB OLIC PANEL glucose 99 mg/dL 70-120 Not Available [facility] ([facility]) [address], [place], [address], 10/24/2023 16:42:07 10/24/19 24 10/24/2023 COMP METAB OLIC PANEL BUN 16 mg/dL 7-18 Not Available [facility] ([facility]) [address] , [place], [address], 10/24/2023 16:42:07 10/24/19 24 10/24/2023 COMP METAB OLIC PANEL creatinine 0.9 mg/dL 0.6-1. 3 Not Available [facility] ([facility]) [address] , [place], [address], 10/24/2023 16:42:07 10/24/19 24 10/24/2023 COMP METAB OLIC PANEL glomerular filtration rate >60 mlper min 60- Not Available [facility] ([facility]) [address], [place], [address], 10/24/2023 16:42:07 10/24/19 24 10/24/2023 COMP METAB OLIC PANEL total protein 7.2 g/dL 6.4-8. 2 Not Available [facility] ([facility]) [address] , [place], [address], 10/24/2023 16:42:07 10/24/19 24 10/24/2023 COMP METAB OLIC PANEL albumin 3.6 g/dL 3.4-5. 0 Not Available [facility] ([facility]) [address], [place], [address], 10/24/2023 16:42:07 10/24/19 24 10/24/2023 COMP METAB OLIC PANEL globulin 3.6 Not Available [facility] ([facility]) [address], [place], [address], 10/24/2023 16:42:07 10/24/19 24 10/24/2023 COMP METAB OLIC PANEL alb/glob ratio 1.0 0.7-2 Not Available [facility] ([facility]) [address], [place], [address], 10/24/2023 16:42:07 10/24/19 24 10/24/2023 COMP METAB OLIC PANEL calcium 8.6 mg/dL 8.5-10 .5 Not Available [facility] ([facility]) [address], [place], [address], 10/24/2023 16:42:07 10/24/19 24 10/24/2023 COMP METAB OLIC PANEL bilirubin total 0.50 mg/dL 0.10-1 .00 Not Available [facility] ([facility]) [address], [place], [address], 10/24/2023 16:42:07 10/24/19 24 10/24/2023 COMP METAB OLIC PANEL AST (SGOT) 23 U/L 0-37 Not Available [facility] ([facility]) [address], [place], [address], 10/24/2023 16:42:07 10/24/19 24 10/24/2023 COMP METAB OLIC PANEL ALT (SGPT) 39 U/L 0-65 Not Available [facility] ([facility]) [address] , [place], [address], 10/24/2023 16:42:07 10/24/19 24 10/24/2023 COMP METAB OLIC PANEL alk phosphatase 80 U/L 46-116 Not Available [facility] ([facility]) [address] [facility], [place], [address], 10/24/2023 16:42:07 10/25/19 24 10/26/2023 SEDIM ENTAT ION RATE- WESTE RGREN sedimentatio n rate-westerg los 5 mm/HR 0-15 Not Available [facility] ([facility]) [address] [facility], [place], [address], 11/03/2023 15:11:19 10/25/19 24 10/27/2023 C-CHANA CTIVE PROTE IN, QUANT C-reactive protein, quant 15 mg/L 0-10 above high normal Not Available [facility] ([facility]) [address] [place], [address], 11/03/2023 15:11:21 04/23/20 24 04/23/2024 C-CHANA CTIVE PROTE IN (CRP) C-reactive protein, quant 1.1 mg/dL 0.05-0 .300 high Not Available [facility] ([facility]) [address] [facility], [place], [address], 04/23/2024 10:36:29 04/23/20 24 04/23/2024 SED RATE sed rate auto 4 0-15 Not Available [facility] ([facility]) [address] [facility], [place], [address], 04/23/2024 10:54:51 11/20/19 24 11/20/2023 arti melgar x US lwr RT ext [facility] it Hospit al [address] [place] [address] Phone: Fax: Name: GAYATHRI DENNIS Exam Date: 024 : 1979 Age 43 years Gender : M Access ion: [id number] Physic lou: THAO BRADFORD Facili [place]: [place] Facili ty HSV: Outpat ient [...] Thank you for referr GAYATHRI Rodríguez to [facility]. Legall y authen ticate d by YANELIS Macias IVO 11-19 11:51: 02 CC'ed Logic: Orderi ng Provid er: SPENCER OSUNA Attend ing Provid er: SPENCER OSUNA Referr ing Provid er: SPENCER OSUNA Admitt ing Provid er: SPENCER [email or web address] [facility] - [facility] Therapy [address] [facility], [place], [address], 11/20/2023 12:58:54 11/20/19 24 11/20/2023 CT, angio gram, chest , w/ contr ast [facility] [address] [place] [address] Phone: Fax: Name: GAYATHRI DENNIS Exam Date: : 1979 Age 43 years Gender : M Access ion: [id number] Physic lou: HTAO BRADFORD Facili ty: [facility] Facili ty HSV: Outpat ient Exam: CTA [...] you for referr ing GAYATHRI DENNIS to [facility] Hospit al. Legall y authen ticate d by YANELIS Macias IVO 11-19 12:06: 58 CC'ed Logic: Orderi ng Provid er: SPENCER OSUNA Attend ing Provid er: SPENCER OSUNA Referr ing Provid er: SPENCER OSUNA Admitt ing Provid er: SPENCER OSUNA [email or web address] [facility] [address] [place] [address], [address], 11/21/2023 16:18:56 Result Notes Documentation Provider Name and Address Organization Details Recorded Time Ct, Angiogram, Chest, W/ Contrast : [place] [address] Name: MITCHELLWON LANDERS Exam Date: 11/20/2023 : 1980 Age 43 years Gender: M Physician: THAO BARNES Facility: [facility] Facility HSV: Outpatient Exam: CTA CHEST PE [...] Thank you for referring WON DENNIS to [facility]. 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 Procedures Surgical History Date Name Laterality Status Provider Name and Address Organization Details Recorded Time 03/26/20 24 Venipuncture cancelled Thao Barnes PA-C [address], [place], [address], [facility] & [place] 03/18/2024 14:56:10 10/24/19 24 Venipuncture completed Thao Barnes PA-C [address], [place], [address], [facility] & [place] 10/23/2023 10:53:19 07/25/19 24 [facility] [place] 07/25/2023 14:41:20 amputation of lower limb completed [facility] & [place] 07/25/2023 13:57:05 Imaging Results None recorded. Procedure Notes None recorded. Medical Equipment None Reported. Allergies Allergen ID Allergen Name Allergen Category Reaction Reaction Severity Criticality Documentation Date Start Date Code Code System Note Provider Name and Address Organization Details Recorded Time 149105 cefdinir medicatio n Not available Not available Not available 06/02/2023 70467 RxNorm Isabel Kay [facility] & [place] 10:06:00 Medications Name Sig Start Date Stop [...] active Not Available Not Available Not Available [facility] 10 billion cell-200 mg [...] Updated DateTime 4 182.88 cm 43.3 kg/m2 550483. 97 g 98 [degF] 95 /min 96 % 96 % 137/92 mm[Hg] [facility] [place] 4 14:44:48 Date Recorded Body height Body mass index (BMI) Body weight Body temperature Oxygen saturation Oxygen saturation in Arterial blood by Pulse oximetry Heart rate Systolic And Diastolic Provider Name and Address Organization Details Last Updated DateTime 4 182.88 cm 43.2 kg/m2 493092. 81 g 98.6 [degF] 95 % 95 % 86 /min 134/84 mm[Hg] Amy [facility] & [place] 4 08:59:12 Date Recorded Body height Body mass index (BMI) Body weight Body temperature Oxygen saturation Oxygen saturation in Arterial blood by Pulse oximetry Heart rate Systolic And Diastolic Provider Name and Address Organization Details Last Updated DateTime 4 182.88 cm 42.9 kg/m2 109365. 19 g 98 [degF] 94 % 94 % 70 /min 140/80 mm[Hg] Kalie Gibbs [facility] & [place] 4 09:24:00 Date Recorded Heart rate Body height Oxygen saturation Oxygen saturation in Arterial blood by Pulse oximetry Body temperature Body mass index (BMI) Body weight Systolic And Diastolic Provider Name and Address Organization Details Last Updated DateTime 5 85 /min 180.34 cm 94 % 94 % 98.8 [degF] 41.7 kg/m2 530330. 12 g 140/96 mm[Hg] Amy Aquino [facility] & [place] 5 11:13:21 Date Recorded Body height Heart rate Oxygen saturation Oxygen saturation in Arterial blood by Pulse oximetry Body mass index (BMI) Body weight Body temperature Systolic And Diastolic Provider Name and Address Organization Details Last Updated DateTime 5 180.34 cm 90 /min 94 % 94 % 41.8 kg/m2 988952. 71 g 97.5 [degF] 120/70 mm[Hg] Amy SANZ [facility] & [place] 5 10:30:54 Social History Question Answer Notes LastModified by InMyShow Details LastModified Time Tobacco Smoking Status Never Smoker Isabel Abdullahiey [facility] & [place] 06/02/2023 10:06:28 Do You Have An Advance Directive? [email or web address] Information not available 04/28/2025 Are You Blind Or Do You Have Difficulty Seeing? No [email or web address] Information not available 04/28/2025 What Was The Date Of Your Most Recent Tobacco Screening? 04/20/2025 [email or web address] Information not available 04/28/2025 Are You Passively Exposed To Smoke? No [email or web address] Information not available 04/28/2025 Sex: Unknown Functional Status Question Answer Note LastModified by InMyShow Details LastModified Time Do you use any illicit or recreational drugs? No [email or web address] Information not available 07/25/2023 What is your level of alcohol consumption? None [email or web address] Information not available 04/28/2025 Mental Status None recorded. Family History Nothing Reported. Medical History Condition Response Clotting Disorder Y Back Problems Y Hypertension Y Immunizations Vaccine Type Date Status Note Provider Shay moralez and Address Organization Details Recorded Time Td (adult), 2 Lf tetanus toxoid, preservative free, adsorbed 6 completed Sarah jaramillo, [place] - [facility] - [place] & [place] 07/25/2023 13:54:15 Past Encounters Encounter ID Performer Location Encounter Start Date Encounter Closed Date Diagnosis/Indication Diagnosis SNOMED-CT Code Diagnosis ICD10 Code Diagnosis IMO Codes Diagnosis Note [id number] Randy Torres MD [facility] [address] [place] [address] 06/02/2023 09:54:50 06/02/2023 10:26:43 Osteomyelitis 26226331 M86.9 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 Influenza caused by Influenza A virus 596621485 J09.X2 Resolved.. No further oseltamivi r needed. High risk medication monitoring indicated 6320933013 6940932 Z76.89 Related to the daptomycin . I will check a total CK and continue to follow serial levels of this enzyme to make sure he develops no rhabdomyol ysis. 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 Methicilli n resistant Staphylococcus aureus infection 639487978 A49.02 As above High risk medication monitoring indicated 3819937233 4431040 Z76.89 This is related to the daptomycin . I will continue to monitor his total CK levels closely. 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 Methicilli n resistant Staphylococcus aureus infection 008083394 A49.02 As above Adverse re action to drug 26373965 T50.905A Related to doxycyclin e. This is gastrointe stinal in nature. I will check his liver function testing to make sure he is not developing any hepatotoxi city. I will drop the dose to 100 mg per day. I want him to continue to take it with food. I will re-evaluat e next week. 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 Methicilli n resistant Staphylococcus aureus infection 274833466 A49.02 As above [id number] Thao Barnes PA-C [facility] [address] [place] [address] 07/25/2023 13:39:19 07/26/2023 06:33:52 Deep venous thrombosis 689413326 I82.409 Patient has a history of osteomyeli [...] performed when patient was hospitaliz ed at [facility] on May 26, 2023 with normal antithromb in 3 activity. No evidence of factor 5 Leiden mutation. Discussed with patient will order additional labs for further evaluation acquired hypercoagu lable disorder today. Discussed will likely continue on least the prophylact ic dose of Eliquis lifelong due to separate occurrence s of blood clots. Pulmonary embolism 88804 003 I26.99 Patient has a history of [...] s of blood clots. Anticoagulant therapy 18 3344681 Z79.01 Patient continues on Eliquis 5 mg 1 tab p.o. b.i.d.. He is tolerating without trouble. Discussed will likely continue on least the prophylact ic dose of Eliquis lifelong due to separate occurrence s of blood clots. [id number] Thao Barnes PA-C [facility] [address] [place] [address] 10/24/2023 14:29:27 10/24/2023 15:33:34 Deep venous thrombosis 119349966 I82.409 Patient has a history of osteomyeli [...] performed when patient was hospitaliz ed at [facility] on May 26, 2023 with normal antithromb [...] Will follow up labs today. Pulmonary embolism 10158 003 I26.99 Patient has a history of [...] follow up labs today. Anticoagulant therapy 18 8267264 Z79.01 Patient continues on Eliquis 5 mg 1 tab p.o. b.i.d.. He is tolerating without trouble. Discussed will continue on least the prophylact ic dose of Eliquis lifelong due to separate occurrence s of blood clots. Will follow up venous duplex of lower extremity and chest CTA to make sure no evidence of embolism before reducing Eliquis dose to 2.5 mg b.i.d. 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 Methicilli n resistant Staphylococcus aureus infection 698075364 A49.02 As above High risk medication monitoring indicated 8528269828 3692186 Z76.89 This is related to the chronic suppressiv e doxycyclin e. I reviewed his liver function testing from yesterday. There is no evidence of any hepatotoxi city. I will continue to monitor this at each visit. I also counseled him about the risk of photosensi tivity with doxycyclin e. 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 Methicilli n resistant Staphylococcus aureus infection [id number] A49.02 As above [id number] Radny Torres MD [facility] Infectiou s Disease -105 [address] [facility] [address] [place] [address] 04/28/2025 11:00:57 04/28/2025 11:33:23 Osteomyelitis [id number] M86.9 [id number] This patient has a recurrentc hronic osteomyeli [...] week. Methicilli n resistant Staphylococcus aureus infection [id number] B95.62 [id number] As above [id number] Randy Torres MD [facility] Infectiou s Disease -105 [address] [facility] [address] [place] [address] 05/05/2025 10:21:03 05/05/2025 10:37:01 Chronic osteomyelitis of right tibia [id number] M86.461 [id number] This is recurrent and involves the right [...] today. Methicilli n resistant Staphylococcus aureus infection [id number] A49.02 [id number] This is the pathogen as above. Taking hig h risk medication [id number] Z79.109 [id number] This is related to the long-term intravenou [...] ID Guarantor Name 01/27/2024 1 [place] [id number] Won Dennis [id number] Won Dennis 05/16/2025 2 MEDICAID-[facility] HEALTH CHOICES - FFS/TRADITIONA L Won Dennis [id number] Won Dennis 05/16/2025 1 [place] Won Dennis [id number] Won Dennis 04/28/2025 1 HUMANA Won Dennis [id number] Won Dennis 04/30/2025 3 [facility] (MEDICAID REPLACEMENT - HMO) Won Dennis [id number] Won Dennis Notes Date Note Type Note [...] Labs performed when patient was hospitalized at [facility] on May 26, 2023 with normal antithrombin [...] follow up labs today. Thao Barnes PA-C [address], [place], [address], [place] - [place] - [place] & [place] 10/24/2023 15:43:34 10/25/2023 text/html ROS as noted [...] well. Randy Torres MD [address], [place], [address], [facility] 10/25/2023 09:16:07 04/23/2024 text/html ROS as noted [...] well. Randy Torres MD [address], [place], [address], [facility] & [place] 04/23/2024 09:31:22 04/28/2025 text/html ROS as noted in the HPI This is a 44-year-old white male who is following up with [facility] for a right stump infection due to [...] daptomycin and is now referred back to [facility]. He has been on intravenous daptomycin for almost 4 weeks. The swelling in his stump has gone down. There is no persisting redness or pain. No fever. No issues tolerating the daptomycin. Randy Torres MD [address], [place], [address], [facility] & [place] 04/28/2025 11:42:44 05/05/2025 text/html ROS as noted in the HPI This is a 44-year-old white male who is following up with [facility] for a recurrent osteomyelitis of his right [...] once daily at the infusion center in [facility]. His stump is doing well. All surgical incisions remain healed. There has been no undue pain or swelling. No redness. No drainage. Randy Torres MD [address], [place], [address], [facility] - [facility] - [place] & [place] 05/05/2025 10:41:36
--- OUTSIDE RECORDS SUMMARY | 2025-05-16 08:50 | XMS_ITS | Clinical Summary ---
Author Organization [facility] Address [address] [place] [address] Care Team Providers Care Waiter/Waitress Tavern Name Role Phone Provider, No Known Primary [...] Description 04/08/2025 3:34 PM EDT Anesthesia Event [facility] OR [address] [place] [phone] Ulises Hoffman MD Wells, Jeremy B., MD 04/08/2025 2:45 PM EDT - 04/08/2025 4:04 PM EDT Surgery [facility] [address] [place] [phone] Sushil Dean Jr., MD LEG DEBRIDEMENT AND IRRIGATION 04/07/2025 8:36 PM EDT Anesthesia Event [facility] OR [address] [place] [phone] Luci Alonso DO 04/07/2025 6:00 PM EDT - 04/07/2025 6:52 PM EDT Surgery [facility] OR [address] [place] [phone] Sushil Dean Jr., MD LEG DEBRIDEMENT, IRRIGATION 04/04/2025 4:10 PM EDT - 04/11/2025 1:58 PM EDT Hospital Encounter [facility] [address] [place] [phone] Mario Crowley, Leonora Calderon MD Gay, Bryce, [...] drink = 0.6 oz pur e alcohol) [employer] Answer Date Recorded In the past 12 months has [employer], gas, oil, or water [employer] threatened to shut off services in your [...] or training? Not on file Preferred Language Yemeni 04/07/2025 Sex and Gender Information Value Date [...] this topic Medical Devices Implanted Type Area Assistant Restaurant General Manager Device Identifier Shelf Expiration Date Model / Serial / Lot Dev Wnd/Cls Contrl Tiss Stratafix Spiral Pls Pds Ct1 0 22cm - [id number] Implanted:Qty: 1 on 04/08/2025 by Sushil Dean Jr., MD at [facility] Implant Right: Leg [employer] J 12/07/2025 [id number] / / [id number] Procedures Procedure Name Priority [...] 3.40 - 10.80 10*3/mm3 [facility] RBC 4.70 4.14 - 5.80 10*6/mm3 04/11/2025 4:02 AM [facility] Hemoglobin 12.8(L) 13.0 - 17.7 g/dL 04/11/2025 4:02 AM [facility] Hematocrit 40.5 37.5 - 51.0 % 04/11/2025 4:02 [facility] MCV 86.2 79.0 - [...] 5.0 - 12.0 % 04/11/2025 4:02 [facility] Eosinophil % 4.1 0.3 - 6.2 % 04/11/2025 4:[facility] Basophil % 0.4 0.0 - 1.5 % 04/11/2025 4:[facility] Immature Grans % 0.4 0.0 - 0.5 % 04/11/2025 4:02 AM EDT [facility] Neutrophils, Absolute 4.69 1.70 - 7.00 10*3/mm3 04/11/2025 4:02 AM EDT [facility] Lymphocytes, Absolute 2.07 0.70 - 3.10 10*3/mm3 04/11/2025 4:02 AM EDT [facility] Monocytes, Absolute 0.73 0.10 - 0.90 10*3/mm3 04/11/2025 4:02 AM EDT [facility] Eosinophils, Absolute 0.32 0.00 - 0.40 10*3/mm3 04/11/2025 4:02 AM EDT [facility] Basophils, Absolute 0.03 0.00 - 0.20 10*3/mm3 04/11/2025 4:02 AM EDT [facility] Immature Grans, Absolute 0.03 0.00 - 0.05 10*3/mm3 04/11/2025 4:02 AM EDT [facility] nRBC 0.0 0.0 - 0.2 /100 WBC 04/11/2025 4:02 AM EDT [facility] Blood Venipuncture / Unknown 04/11/2025 3:40 AM EDT 04/11/2025 3:59 AM EDT us Sushil Dean Jr., MD LAB BLOOD ORDERABLES Fi nal Result [facility]
[address] [place] [address], * (ABNORMAL) Comprehensive Metabolic Panel (04/11/2025 3:40 AM EDT) Only the most recent of2 resultswithin the time period is included. [facility] Glucose 108(H) 65 - 99 mg/dL 04/11/2025 4:19 AM EDT [facility] BUN 12.5 6.0 - 20.0 mg/dL 04/11/2025 4:19 AM [facility] Creatinine 0.68(L) [...] - 15.0 mmol/L 04/11/2025 4:19 AM EDT [facility] eGFR 117.5 >60.0 mL/min/1.7 3 04/11/2025 4:19 AM EDT [facility] Blood Venipuncture / Unknown 04/11/2025 3:40 AM EDT 04/11/2025 3:56 AM EDT Narrative [facility] - 04/11/2025 4:19 AM EDT GFR [...] include race as a factor Rosario Hill [employer] LAB BLOOD ORDERABLES Final Result [facility]
[address] [place] [address], * Heparin Anti-Xa (04/10/2025 3:46 AM EDT) Only the most recent of13 resultswithin the time period is included. Heparin Anti-Xa (UFH) 0.35 0.30 - 0.70 IU/ml 04/10/2025 4:23 AM EDT [facility] Blood Venipuncture / Unknown 04/10/2025 3:46 AM EDT 04/10/2025 3:53 AM EDT Larisa Hamilton [facility] LAB BLOOD ORDERABLES Final R esult [facility]
[address] [place] [address], * (ABNORMAL) Basic Metabolic Panel (04/10/2025 3:46 AM EDT) Only the most recent of6 resultswithin the time period is included. Pathologist [facility] Glucose 125(H) 65 - 99 mg/dL 04/10/2025 4:20 AM EDT [facility] BUN 15.9 6.0 - 20.0 mg/dL 04/10/2025 4:20 AM EDT [facility] Creatinine 0.77 0.76 - 1.27 mg/dL 04/10/2025 4:20 AM EDT [facility] Sodium 137 136 - 145 mmol/L 04/10/2025 4:20 AM EDT [facility] Potassium 3.9 3.5 - 5.2 mmol/L 04/10/2025 4:20 AM EDT [facility] Chloride 102 98 - 107 mmol/L 04/10/2025 4:20 AM EDT [facility] CO2 26.9 22.0 - 29.0 mmol/L 04/10/2025 4:20 AM EDT [facility] Calcium 7.9(L) 8.6 - 10.5 mg/dL 04/10/2025 4:20 AM EDT [facility] BUN/Creatinine Ratio 20.6 7.0 - 25.0 04/10/2025 4:20 AM EDT [facility] Anion Gap 8.1 5.0 - 15.0 mmol/L 04/10/2025 4:20 AM EDT [facility] eGFR 113.2 >60.0 mL/min/1.7 3 04/10/2025 4:20 AM [facility] Blood Venipuncture [...] Final Resul t Performing Organization Address City/[facility] Co de Phone Number [facility]
[address] [place] [address], * Wound Culture - Swab, Leg, Right (04/08/2025 3:40 PM EDT) Only the most recent of3 resultswithin the time period is included. Wound Culture No growth at 3 days ALIZA 04/11/2025 10:40 AM EDT [facility] Gram Stain Few (2+) WBCs seen 04/11/2025 10:40 AM EDT [facility] Gram Stain No organisms seen 04/11/2025 10:40 AM EDT [facility] Swab Structure of right lower limb / Unknown 04/08/2025 3:40 PM EDT 04/08/2025 8:05 PM EDT Sushil Dean Jr., MD MICROBIOLOGY - GENERAL ORDERABLES Final Result Performing Organization Address [facility] Co de Phone Number [facility]
[address] [place] [address], [facility]
[address] [place] [address], * Anaerobic Culture - Swab, Leg, Right [...] ORDERABLES Final Result Performing Organization Address City/[facility] Co de Phone Number [facility]
[address] [place] [address], * Scan Slide (04/08/2025 8:41 AM EDT) RBC Morphology Normal Normal 04/08/2025 11:02 AM EDT [facility] WBC Morphology Normal Normal 04/08/2025 11:02 AM EDT [facility] Platelet Estimate Adequate Normal 04/08/2025 11:02 AM EDT [facility] Clumped Platelets Present None Seen 04/08/2025 11:02 AM EDT [facility] Blood Venipuncture / Unknown 04/08/2025 8:41 AM EDT 04/08/2025 9:10 AM EDT Una Perla PharmD LAB BLOOD ORDERABLES Final R esult Performing Organization Address [facility] Co de Phone Number [facility]
[address] [place] [address], * FL C Arm During Surgery (04/07/2025 [...] (1+) WBCs seen 04/11/2025 10:36 AM EDT [facility] Gram Stain No organisms seen 04/11/2025 10:36 AM EDT [facility] Tissue Structure of right lower limb / Unknown 04/07/2025 9:13 PM EDT 04/08/2025 4:54 AM EDT us Sushil Dean Jr., MD MICROBIOLOGY - GENERAL ORDERABLES Final Result [facility]
[address] [place] [address], [place] [phone] [facility]
[address] [place] [address], [place] [phone] * BH AN ETT AIRWAY (04/07/2025 8:44 [...] [place] 04/07/2025 9:58 AM EDT Workstation ID: [id number] Narrative 04/07/2025 9:58 AM EDT MRI TIBIA [...] [place] 04/07/2025 9:58 AM EDT Workstation ID: [id number] us Sushil Dean Jr., MD IM MRI ORDERABLES Mary Beth l Result * Potassium (04/06/2025 7:16 PM EDT) Potassium 4.0 3.5 - 5.2 mmol/L 04/06/2025 7:53 PM EDT [facility] Blood Venipuncture / Unknown 04/06/2025 7:16 PM EDT 04/06/2025 7:35 PM EDT Jason Álvarez DO LAB BLOOD ORDERABLES Final Resul t Performing Organization Address City/[facility]/ZIP Co de Phone Number [facility]
[address] [place] [address], * CK (04/05/2025 12:15 PM EDT) Creatine Kinase 140 20 - 200 U/L 04/05/2025 1:31 PM EDT [facility] Blood Venipuncture / Unknown 04/05/2025 12:15 PM EDT 04/05/2025 1:03 PM EDT Carlton Mead MD LAB BLOOD ORDERABLES Final R esult Performing Organization Address [facility] Co de Phone Number [facility]
[address] [place] [address], * (ABNORMAL) aPTT (04/05/2025 3:54 AM EDT) Only the most recent of2 resultswithin the time period is included. PTT 35.3(L) 60.0 - 90.0 seconds 04/05/2025 4:31 AM EDT [facility] Blood Venipuncture / Unknown 04/05/2025 3:54 AM EDT 04/05/2025 4:15 AM EDT Narrative [facility] - 04/05/2025 4:31 AM EDT PTT = The equivalent PTT values for the therapeutic range of heparin levels at 0.3 to 0.5 U/ml are 60 to 70 seconds. Una LundbergD LAB BLOOD ORDERABLES Final R esult Performing Organization Address [facility] Co de Phone Number [facility]
[address] [place] [address], * (ABNORMAL) Protime-INR (04/05/2025 12:18 AM EDT) [facility] Protime 15.9(H) 12.2 - 15.3 Seconds 04/05/2025 12:53 AM EDT [facility] INR 1.19(H) 0.89 - 1.12 04/05/2025 12:53 AM EDT [facility] Blood Venipuncture / Unknown 04/05/2025 12:18 AM EDT 04/05/2025 12:37 AM EDT Una Perla PharmD LAB BLOOD ORDERABLES Final R esult Performing Organization Address [facility] Co de Phone Number [facility]
[address] [place] [address], * POC Creatinine (04/04/2025 2:49 PM EDT) [facility] Creatinine 1.10 0.60 - 1.30 mg/dL 04/07/2025 7:14 PM EDT [facility] Comment:Serial Number: [id number] Venous Blood 04/04/2025 2:49 PM EDT 04/07/2025 7:14 PM EDT Jason Álvarez DO POINT OF CARE TEST ORDERABLES Fi nal Result Performing Organization Address [facility] Co de Phone Number [facility]
[address] [place] [address], * (ABNORMAL) Sedimentation Rate (04/04/2025 2:47 PM EDT) [facility] Sed Rate 51(H) 0 - 15 mm/hr 04/04/2025 3:06 PM EDT [facility] Blood Venipuncture / Unknown 04/04/2025 2:47 PM EDT 04/04/2025 2:52 PM EDT Mario Ortiz [facility] LAB BLOOD ORDERABLES Fin al Result Performing Organization Address City/[facility]/ZIP Co de Phone Number [facility]
[address] [place] [address], * (ABNORMAL) C-reactive Protein (04/04/2025 2:47 PM EDT) C-Reactive Protein 8.57(H) 0.00 - 0.50 mg/dL 04/04/2025 3:26 PM EDT [facility] Blood Venipuncture / Unknown 04/04/2025 2:47 PM EDT 04/04/2025 2:52 PM EDT [facility] BLOOD ORDERABLES Fin al Result Performing Organization Address City/[facility] de Phone Number [facility]
[address] [place] [address], from Last 3 Months Additional Health Concerns [...] Of Support Discussed With: Patient Care Teams Waiter/Waitress Tavern Relationship Specialty Start Date End Date Provider, [place] [address] PCP - General 05/09/23
--- OUTSIDE RECORDS SUMMARY | 2025-05-16 08:50 | XMS_ITS | Encounter Summary ---
Author Organization Healthcare Address [address] [place] [address] Care Team Providers Care Food Service Hotel Runner Name Role Phone Unavailable Primary Care Provider Unavailabl e Encounter Details Date Type Department Care Team (Late st Contact Info) Description 10/19/2022 Lab Requisition [facility] [address] [place] [address] Sushil Dean MD [address] [place] [address] Encounter for general adult medical examination without [...] by MALDI tof mass spectrometry using the [employer]p 4 [place] database and is for research use only. The organism value for this result has been updated. These results have been appended to the previously preliminary verified report. Bone Specimen from bone / Unknown 10/19/2022 5:17 PM EDT 10/19/2022 9:49 PM EDT Sushil Dean MD LAB MICROBIOLOGY - GENERAL O RDERABLES Final Result Performing Organization Address [facility] de Phone Number HEALTH[facility]ARE [facility] [address] [place] [address] * Bone Culture and Gram Stain (10/19/2022 5:17 PM EDT) Culture No growth at day 4 2022 8:14 AM EDT [facility] Gram Stain Result Few Polymorphonuclear leukocytes 10/23/2022 8:14 AM EDT [facility] Gram Stain Result No organisms seen 10/23/2022 8:14 AM EDT [facility] Bone Specimen from bone / Unknown 10/19/2022 5:17 PM EDT 10/19/2022 9:49 PM EDT Sushil Dean MD LAB MICROBIOLOGY - GENERAL O RDERAADDI Final Result Performing Organization Address [facility] Phone Number [facility]ARE [facility] [address] [place] [address] documented in this encounter Visit Diagnoses Diagnosis Encounter for general adult medical examination without abnormal findings documented in this encounter
--- OUTSIDE RECORDS SUMMARY | 2025-05-16 08:50 | XMS_ITS | Encounter Summary ---
Author Organization Healthcare Address [address] [place] [address] Care Team Providers Care Publications Editor Name Role Phone Unavailable Primary Care Provider Unavailabl e Encounter Details Date Type Department Care Team (Late st Contact Info) Description 10/01/2022 Lab Requisition [facility] [address] [place] [address] Sushil Dean MD [address] [facility] [place] [address] Encounter for general adult medical examination without [...] has been identified using the FDA Approved iFityper CA System The organism value for this [...] to culture [id number] FOR SUSCEPTIBILITIES ON NEELIMA ALBICANS us Sushil Dean MD LAB MICROBIOLOGY - GENERAL O RDERABLES Final Result [facility] [address] [place] [address] documented in this encounter Visit Diagnoses Diagnosis Encounter for general adult medical examination without abnormal findings documented in this encounter
--- OUTSIDE RECORDS SUMMARY | 2025-05-16 08:50 | XMS_ITS | Encounter Summary ---
Author Organization Healthcare Address [address] [place] [address] Care Team Providers Care Driver Merchandiser Name Role Phone Unavailable Primary Care Provider Unavailabl e Encounter Details Date Type Department Care Team (Late st Contact Info) Description 07/20/2022 Lab Requisition [facility] [address] [place] [address] Sushil Dean MD [address] [place] [address] Encounter for general adult medical examination without [...]
--- OUTSIDE RECORDS SUMMARY | 2025-05-16 08:50 | XMS_ITS | Encounter Summary ---
Author Organization Healthcare Address [address] [place] [address] Care Team Providers Care Track Helper Name Role Phone Unavailable Primary Care Provider Unavailabl e Encounter Details Date Type Department Care Team (Late st Contact Info) Description 05/13/2023 Lab Requisition [facility] [address] [place] [address] Sushil Dean MD [address] [facility]. [address] [place] [address] Encounter for general adult medical examination without [...] O RDERABLES Final Result Performing Organization Address [facility] Co de Phone Number [facility] [address] [place] [address] * Anaerobic Culture (05/13/2023 9:17 AM EDT) Culture No growth at day 4 05/20/2023 10:35 AM EST [facility] Bone 05/13/2023 9:17 AM EDT 05/13/2023 1:25 PM EDT us Sushil Dean MD LAB MICROBIOLOGY - GENERAL O RDERABLES Final Result Performing Organization Address [facility] de Phone Number [facility] [address] [place] [address] * Bone Culture and Gram Stain (05/13/2023 [...] O RDERABLES Final Result Performing Organization Address [facility] de Phone Number [facility] [address] [place] [address] documented in this encounter Visit Diagnoses Diagnosis Encounter for general adult medical examination without abnormal findings documented in this encounter
--- OUTSIDE RECORDS SUMMARY | 2025-05-16 08:50 | XMS_ITS | Encounter Summary ---
Author Organization [facility] Address [address] [place] [address] Care Team Providers Care Long Term Name Role Phone Unavailable Primary Care Provider Unavailabl e Encounter Details Date Type Department Care Team (Late st Contact Info) Description 10/03/2022 Lab Requisition [facility] [address] [place] [address] Dalila Cox MD [address] [place], [place] [id number] Encounter for general adult medical examination without [...] Culture Neelima albicans(A) 10/05/2022 11:58 AM EDT [facility] Comment: This result was determined by MALDI tof Mass spectrometry. This assay was developed and its performance characteristics determined by [facility] as appropriate for clinical purposes. [...] Edited Result - Final [facility] [address] [place] [address] documented in this encounter Visit Diagnoses Diagnosis Encounter for general adult medical examination without abnormal findings documented in this encounter
--- OUTSIDE RECORDS SUMMARY | 2025-05-16 08:50 | XMS_ITS | Encounter Summary ---
Author Organization Healthcare Address [address] [place] [address] Care Team Providers Care Director Of Early Childhood Name Role Phone Unavailable Primary Care Provider Unavailabl e Encounter Details Date Type Department Care Team (Late st Contact Info) Description 08/12/2022 Lab Requisition [facility] [address] [place] [address] Sushil Dean MD [address] [place] [address] Encounter for general adult medical examination without [...] has been identified using the FDA Approved Edi.ioer CA System The organism value for this [...] O ERIC Final Result Performing Organization Address City/[facility] de Phone Number HEALTHCARE LAB [address] [place] [address] * Bone Culture and Gram Stain (08/12/2022 [...] O RDERABLES Final Result Performing Organization Address City/[facility] de Phone Number [facility] [address] [place] [address] documented in this encounter Visit Diagnoses Diagnosis Encounter for general adult medical examination without abnormal findings documented in this encounter
--- OUTSIDE RECORDS SUMMARY | 2025-05-16 08:51 | XMS_ITS | Clinical Summary ---
Author Organization Healthcare Address [address] [place] [address] Care Team Providers Care Sericulture Teacher Name Role Phone Unavailable Primary Care [...]
--- OUTSIDE RECORDS SUMMARY | 2025-05-16 08:51 | XMS_ITS | Encounter Summary ---
[facility] Organization [facility] Address [address] [place] [address] Care Team Providers Care Cargo Router Name Role Phone Provider, No Known Primary [...] 2:25 PM EDT Cherri Grimm RN * Travis Suicide Severity Rating Scale (Screener/Recent Self-Report) Question [...] documented as of this encounter Care Teams Cargo Router Relationship Specialty Start Date End Date Provider, No Known [facility] [place] [address] PCP - General 05/09/23 documented as of this encounter
--- OUTSIDE RECORDS SUMMARY | 2025-05-16 08:51 | XMS_ITS | Encounter Summary ---
Author Organization Healthcare Address [address] [place] [address] Care Team Providers Care Electric Repair Supervisor Name Role Phone Unavailable Primary Care Provider Unavailabl e Encounter Details Date Type Department Care Team (Late st Contact Info) Description 05/17/2023 Lab Requisition [facility] [address] [place] [address] Sushil Dean MD [address] [facility] [address] [place] [address] Encounter for general adult medical examination without [...] O RDERABLES Final Result Performing Organization Address City/[facility] Co de Phone Number [facility] [address] [place] [address] * Bone Culture and Gram Stain (05/17/2023 [...] Organization Address [facility] Co de Phone Number [facility] [address] [place] [address] documented in this encounter Visit Diagnoses Diagnosis Encounter for general adult medical examination without abnormal findings documented in this encounter
--- OUTSIDE RECORDS SUMMARY | 2025-05-16 08:51 | XMS_ITS | Encounter Summary ---
Author Organization Healthcare Address [address] [place] [address] Care Team Providers Care Assistant Womens Volleyball Coach Name Role Phone Unavailable Primary Care Provider Unavailabl e Encounter Details Date Type Department Care Team (Late st Contact Info) Description 07/20/2022 Lab Requisition [facility] [address] [place] [address] Sushil Dean MD [address] [place] [address] Encounter for general adult medical examination without [...] day 4 07/27/2022 11:32 AM EST [facility] Bone Specimen from bone / Unknown 07/20/2022 1:36 PM EST 07/20/2022 5:52 PM EST us Sushil Dean MD LAB MICROBIOLOGY - GENERAL O RDERABLES Final Result Performing Organization Address City/[facility] Co de Phone Number [facility] [address] [place] [address] * Bone Culture and Gram Stain (07/20/2022 1:36 PM EST) Culture No growth at day 4 2022 9:16 AM EST [facility] Gram Stain Result Rare Polymorphonuclear leukocytes 07/24/2022 9:16 AM EST [facility] Gram Stain Result No organisms seen 07/24/2022 9:16 AM EST [facility] Bone Specimen from bone / Unknown 07/20/2022 1:36 PM EST 07/20/2022 5:52 PM EST us Sushil Dean MD LAB MICROBIOLOGY - GENERAL O RDERABLES Final Result Performing Organization Address City/[facility] Co de Phone Number [facility] [address] [place] [address] documented in this encounter Visit Diagnoses Diagnosis Encounter for general adult medical examination without abnormal findings documented in this encounter
[2025-05-16 09:18] VITALS: BP 124/72; PULSE 80; RESP 18; O2SAT 98
[2025-05-16] MEDS: NEOSPORIN OINTMENT 0.9GM UDP 1 EACH TP (09:29)
== END 2025-05-16 23:59 | disposition home or self-care (01) ==
LOC: INF 08:34
PROVIDERS: PCP Nurse Practitioner Family; Visit Provider Internal Medicine Infectious Disease
DX: L03.115 Cellulitis of right lower limb (principal); L02.415 Cutaneous abscess of right lower limb; L30.9 Dermatitis, unspecified; D68.2 Hereditary deficiency of other clotting factors; I10 Essential (primary) hypertension; E78.5 Hyperlipidemia, unspecified; F39 Unspecified mood [affective] disorder
CPT/HCPCS: 96365; 96375; 99211; G0463; J0878

== ENCOUNTER 2025-05-29 16:25 | Outpatient (CLI) | payer MEDICARE, SELFPAY ==
--- OUTSIDE RECORDS SUMMARY | 2023-12-12 04:00 | XMS_ITS ---
Author Organization [facility] Address 1210 [facility] 36 [facility] 2C YVON Sykes [phone] Care Team Providers Care Agents' Records Clerk Name Role Phone Zeeshan Salazar Primary Care Provider Macario Burkett [phone] REASON FOR VISIT 6 Month Check Up Encounters Encounter Location Date Provider Diagnosis [place] 1210 [facility] [address] [place] [phone] 12/12/2023 Macario Burkett Plan Of Treatment No Information Progress Notes * Won MEDRANO ZeeshanDOB: [birth year] (44 yo M)Acc No.[id number]:12/12/2023 Progress Notes Patient: Won SPANN Provider: Colleen Burkett M.D. :1980 A ge:43 Y S ex:Male Date:12/12/2023 Address:[address] [place] [address] Onel THACKER [id number] Pcp:Zeeshan Salazar Subjective: * Chief Complaints: * 1 . 6 Month Check Up. * Medical History: Objective: * Vitals: Assessment: Plan: * Treatment: * Images: Billing Information: * Visit Code: * Procedure Codes: * Electronic signature of Micaela Burkett MD on 05/30/2025 at 01:34 PM EST Sign off status: Pending * Provider: Colleen Burkett M.D. Date: 12/12/2023 Generated for Nany jorgensen/Elaine/Lisbethitting on: 07/30/2024 01:34 PM EST
--- OUTSIDE RECORDS SUMMARY | 2025-04-04 15:10 | XMS_ITS | Encounter Summary ---
Author Organization [facility] Address [address] [place] [address] Care Team Providers Care Crew Manager Name Role Phone Provider, No Known Primary Care Provider Unavail able Reason for Visit * Reason Comments Leg Swelling * Auth/Cert Specialty Diagnoses / Procedures Referred By Contlevy t Referred To Contact Diagnoses Right BKA infection Referral ID Status Reason Start Date Expiration Date Visits Re quested Visits Authorized [id number] 1 1 Encounter Details Date Type Department Care Team (Late st Contact Info) Description 04/04/2025 4:10 PM EDT - 04/11/2025 1:58 PM EDT Hospital Encounter [address] [place] [address] Mario Crowley, [address] [place] [address] Leonora Shepherd MD [address] [address] Jason Álvarez DO [address] [address] Jadyn Richardson DO [address] [address] Cellulitis of right lower extremity (Primary Dx); Below-knee amputation of right lower extremity, initial encounter; Right BKA infection Discharge Disposition: Home or Self Care Social History Tobacco Use Types Packs/Day Years Used Date Smoking Tobacco: Never Smokeless Tobacco: Never Tobacco Cessation:Counseling Given: Not Answered Alcohol Use Standard Drinks/Week Comments Not Currently 0 (1 standard drink = 0.6 oz pur e alcohol) [facility] Utilities Answer Date Recorded In the past 12 months has th e [email or web address], gas, oil, or water company threatened to [...] or training? Not on file Preferred Language Libyan 04/07/2025 Sex and Gender Information Value Date [...] 2:25 PM EDT Cherri Grimm RN * [place] Suicide Severity Rating Scale (Screener/Recent Self-Report) Question [...] from the original note were not included. [facility] Medicine Services DISCHARGE SUMMARY Patient [...] Date/Time Wound Culture - Swab, Leg, Right [[id number]] (Abnormal) (Susceptibility) Collected: 04/07/252106 Lab Status: Final [...] Units Date/Time FL C Arm During Surgery [[id number]] Resulted: 04/07/252137 Updated: 04/07/252137 Narrative: This procedure was auto-finalized with no dictation required. MRI Tibia Fibula Right With & Without Contrast [[id number]] Collected: 04/07/25 0938 Updated: 04/07/25 1001 Narrative: [...] Buenrostro 04/07/2025 9:58 AM EDT Workstation ID: [id number] MRI Tibia Fibula Right With & Without Contrast [[id number]] Collected: 04/04/252256 Updated: 04/04/252302 Narrative: MRI TIBIA [...] represent a small area of phlegmonous change ([id number] image 10) measuring approximately 1.6 cm which [...] MD 04/04/2025 11:00 PM EDT Workstation ID: [id number] Pending Labs Order Current Status Fungus Culture [...] FLOMAX 1 capsule, Nightly Stop These Medications [facility] Digestive [facility] capsule doxycycline 100 MG tablet Commonly [...] Male) Date of 1980 Social Security Number [id number] [place] [address] Sikh Unknown Marital Status Unknown Admission Date 04/04/2025 Admission Type Emergency Admitting Provider Jadyn Richardson DO Attending Provider Jadyn Richardson DO Department, Room/Bed [address], S565/1 Discharge Date Discharge Disposition Discharge [...] Group [place] [id number] Payor Plan Address Payor Plan Phone Number Payor Plan Fax Number Effective Dates [employer] [address] [address] 08/10/2023 - None Entered [place] [address] Subscriber Name Subscriber Date Member ID WON DENNIS 1980 [id number] Emergency Contacts Stock Control Supervisor (Rel.) Home Phone Work Phone Mobile Phone Avril Dennis (Spouse) -- -- [phone] LewRobert (Relative) -- -- [phone] [place] [facility] [address] Patient: ROOM: [facility] Won Dennis [address] [facility] [place] [address] : 1980 SSN: [id number] Sex: M PCP: Provider, No Known Emergency Contact Information Name Relation Home Work Mobile Avril Dennis Spouse [phone] Other Contacts Name Relation Home Work Mobile Robert Hackett Relative [phone] INSURANCE PAYOR PLAN [employer] # SUBSCRIBER ID Primary: Secondary: MEDICARE [place] [id number] Admitting Diagnosis: 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] Order Date: Apr 09, 2025 Case Management Roll Forming Supervisor Consult (Order ID: [id number]) Diagnosis: Priority: Routine Expected Date: Expiration Date: Interval: Once Count: Comments: Outpatient orders: 1. Outpatient intravenous antibiotic therapy: Daptomycin 800 mg IV daily to be supplied by [facility] 2. Home health to perform [...] INFECTIOUS DISEASE Progress Note Won Dennis 1980 [id number] Date of Consult: 04/10/2025 Admission Date: 04/04/2025 [...] which prompted him to seek treatment at [facility]. He is known to Dr. Dean. He [...] wound 05/09/25. HDS, on Heparin gtt. Currently [facility] has been asked to manage the [...] Jr., MD, 20 mg at 04/09/25906 heparin 09394 units/250 mL (100 units/mL) in 0.45 % [...] Units Date/Time FL C Arm During Surgery [[id number]] Resulted: 04/07/252137 Updated: 04/07/252137 Narrative: This procedure was auto-finalized with no dictation required. MRI Tibia Fibula Right With & Without Contrast [[id number]] Collected: 04/07/25 0938 Updated: 04/07/25 1001 Narrative: [...] Chitra 04/07/2025 9:58 AM EDT Workstation ID: [id number] Impression: Recurrent Right BKA stump abscess/cellulitis- this [...] discussed his disposition with the pharmacist at [facility] today. I will sign off Outpatient orders: 1. Outpatient intravenous antibiotic therapy: Daptomycin 800 mg IV daily to be supplied by [facility] 2. Home health to perform weekly PICC [...] Time: 04/10/251323 Signed Expand All Collapse All [facility] Medicine Services PROGRESS NOTE Patient [...] Date/Time Wound Culture - Swab, Leg, Right [[id number]] (Abnormal) (Susceptibility) Collected: 04/07/252106 Lab Status: Final [...] Row Name 04/06/25 1143 Sit-Stand Transfer Sit-Stand [place] (Transfers) modified independence -LM Comment, (Sit-Stand Transfer) Pt stood from recliner. Not holding onto walker, pt able to pull his pants up while balancing on his one leg. -LM Row Name 04/06/25 1143 Gait/Stairs (Locomotion) [place] Level (Gait) modified independence -LM Distance in [...] Nurse Physical Therapy Education Title: PT OT BLUEPRINTING 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 Therapies (Done) Topic: Physical Therapy (Done) Point: [...] Description Service Date Service Provider Modifiers Qty [id number] PT EVAL LOW COMPLEXITY 3 04/06/2025 Susan [...] mg Daily 04/05/2025 -- Route: Oral heparin 70931 units/250 mL (100 units/mL) in 0.45 % [...] -- Admin Instructions: Open Order & Select [facility] Electrolyte Replacement Protocol Algorithm to [...] Dean MD April 21 vs April 22 [facility] [address] [facility], [address] [facility], [address] Please schedule at [phone] VONDA Garcia 04/11/25 08:32 EDT Cosigned by Sushil Dean Jr., MD at 04/19/2025 10:33 AM EDT Associated attestation - Sushil Dean Jr., MD - 04/19/2025 10:33 AM EDT I have reviewed this documentation and agree. * Rosario Hill APRN - 04/10/2025 1:24 PM EDT Images from the original note were not included. [facility] Medicine Services PROGRESS NOTE Patient [...] Date/Time Wound Culture - Swab, Leg, Right [[id number]] (Abnormal) (Susceptibility) Collected: 04/07/252106 Lab Status: Final [...] mg Daily 04/05/2025 -- Route: Oral heparin 77574 units/250 mL (100 units/mL) in 0.45 % [...] -- Admin Instructions: Open Order & Select [facility] Electrolyte Replacement Protocol Algorithm to [...] -- Admin Instructions: Open Order & Select [facility] Electrolyte Replacement Protocol Algorithm to [...] -- Admin Instructions: Open Order & Select [facility] Electrolyte Replacement Protocol Algorithm to [...] Dean MD April 21 vs April 22 [facility] [address] [facility] [address] [facility], [address] [facility], [address] Please schedule at [phone] VONDA Garcia 04/10/25 09:01 EDT Cosigned by Sushil Dean Jr., MD at 04/19/2025 10:33 AM EDT Associated attestation - Sushil Dean Jr., MD - 04/19/2025 10:33 AM EDT I have reviewed this documentation and agree. * Carlton Mead MD - 04/10/2025 7:38 AM EDT Images from the original note were not included. INFECTIOUS DISEASE Progress Note Won Dennis 1980 [id number] Date of Consult: 04/10/2025 Admission Date: 04/04/2025 [...] which prompted him to seek treatment at [facility]. He is known to Dr. Dean. He [...] wound 05/09/25. HDS, on Heparin gtt. Currently [facility] has been asked to manage the [...] Jr., MD, 20 mg at 04/09/25906 heparin 57592 units/250 mL (100 units/mL) in 0.45 % [...] Chloride 500 mL Status: Discontinued Ordering Provider: Sushli Dean Jr., MD 15 mg/kg ?? 134 [...] vancomycin 2750 mg/500 mL 0.9% NS IVPB ([facility]) Ordering Provider: Mario Crowley, DO [...] Units Date/Time FL C Arm During Surgery [[id number]] Resulted: 04/07/252137 Updated: 04/07/252137 Narrative: This procedure was auto-finalized with no dictation required. MRI Tibia Fibula Right With & Without Contrast [[id number]] Collected: 04/07/25 0938 Updated: 04/07/25 1001 Narrative: [...] Buenrostro 04/07/2025 9:58 AM EDT Workstation ID: [id number] Impression: Recurrent Right BKA stump abscess/cellulitis- this [...] discussed his disposition with the pharmacist at [facility] today. I will sign off Outpatient orders: 1. Outpatient intravenous antibiotic therapy: Daptomycin 800 mg IV daily to be supplied by [facility] 2. Home health to perform weekly PICC [...] MD 04/10/2025 07:38 EDT * Yaya Hamiltonn, [facility] - 04/10/2025 7:17 AM EDT Pharmacy to [...] from the original note were not included. [facility] Medicine Services PROGRESS NOTE Patient [...] Date/Time Wound Culture - Swab, Leg, Right [[id number]] (Abnormal) Collected: 04/07/252106 Lab Status: Preliminary result [...] Jason DO Preeti 04/09/25 * Larisa Hamilton [facility] - 04/09/2025 11:36 AM EDT Pharmacy to [...] mg Daily 04/05/2025 -- Route: Oral heparin 80161 units/250 mL (100 units/mL) in 0.45 % [...] -- Admin Instructions: Open Order & Select [facility] Electrolyte Replacement Protocol Algorithm to [...] -- Admin Instructions: Open Order & Select [facility] Electrolyte Replacement Protocol Algorithm to [...] -- Admin Instructions: Open Order & Select [facility] Electrolyte Replacement Protocol Algorithm to [...] in 2 weeks for incision check, radiographs [facility] [address] [facility], [address] [facility], [address] Please schedule at [phone] VONDA Garcia 04/09/25 09:18 EDT Cosigned by Sushil Dean Jr., MD at 04/19/2025 10:33 AM EDT Associated attestation - Sushil Dean Jr., MD - 04/19/2025 10:33 AM EDT I have reviewed this documentation and agree. * Carlton Mead MD - 04/09/2025 8:25 AM EDT Images from the original note were not included. INFECTIOUS DISEASE Progress Note Won Dennis 1980 [id number] Date of Consult: 04/09/2025 Admission Date: 04/04/2025 [...] which prompted him to seek treatment at [facility]. He is known to Dr. Dean. He [...] wound 05/09/25. HDS, on Heparin gtt. Currently [facility] has been asked to manage the [...] Sushil Dean Jr., MD; Location: [facility] OR; Service: Orthopedics; Laterality: Right; PLACEMENT OF WOUND VAC Right 04/07/2025 Procedure: WOUND VACUUM ASSISTED CLOSURE; Surgeon: Sushil Dean Jr., MD; Location: [facility] OR; Service: Orthopedics; Laterality: Right; History reviewed. [...] MD, 20 mg at 04/08/25 0800 heparin 99322 units/250 mL (100 units/mL) in 0.45 % [...] Units Date/Time FL C Arm During Surgery [[id number]] Resulted: 04/07/252137 Updated: 04/07/252137 Narrative: This procedure was auto-finalized with no dictation required. MRI Tibia Fibula Right With & Without Contrast [[id number]] Collected: 04/07/2538 Updated: 04/07/25 1001 Narrative: MRI [...] Buenrostro 04/07/2025 9:58 AM EDT Workstation ID: [id number] Impression: Recurrent Right BKA stump abscess/cellulitis- this [...] mg IV daily to be supplied by [facility] 2. Home health to perform [...] from the original note were not included. [facility] Medicine Services PROGRESS NOTE Patient [...] Buenrostro 04/07/2025 9:58 AM EDT Workstation ID: [id number] I have personally reviewed the therapy plans: [...] Jason Álvarez DO 04/08/25 * Larisa Hamilton [facility] - 04/08/2025 11:48 AM EDT Pharmacy to [...] -- Admin Instructions: Open Order & Select [facility] Electrolyte Replacement Protocol Algorithm to [...] mg Daily 04/05/2025 -- Route: Oral heparin 78335 units/250 mL (100 units/mL) in 0.45 % [...] -- Admin Instructions: Open Order & Select [facility] Electrolyte Replacement Protocol Algorithm to [...] -- Admin Instructions: Open Order & Select [facility] Electrolyte Replacement Protocol Algorithm to [...] -- Admin Instructions: Open Order & Select [facility] Electrolyte Replacement Protocol Algorithm to [...] INFECTIOUS DISEASE Progress Note Won Dennis 1980 [id number] Date of Consult: 04/08/2025 Admission Date: 04/04/2025 [...] which prompted him to seek treatment at [facility]. He is known to Dr. Dean. He [...] wound 05/09/25. HDS, on Heparin gtt. Currently [facility] has been asked to manage the [...] Sushil Dean Jr., MD; Location: [facility] OR; Service: Orthopedics; Laterality: Right; PLACEMENT OF WOUND VAC Right 04/07/2025 Procedure: WOUND VACUUM ASSISTED CLOSURE; Surgeon: Sushil Dean Jr., MD; Location: [facility] OR; Service: Orthopedics; Laterality: Right; History reviewed. [...] Jr., MD, 20 mg at 04/07/25950 heparin 44697 units/250 mL (100 units/mL) in 0.45 % [...] Units Date/Time FL C Arm During Surgery [[id number]] Resulted: 04/07/252137 Updated: 04/07/252137 Narrative: This procedure was auto-finalized with no dictation required. MRI Tibia Fibula Right With & Without Contrast [[id number]] Collected: 04/07/2538 Updated: 04/07/25 1001 Narrative: MRI [...] Buenrostro 04/07/2025 9:58 AM EDT Workstation ID: [id number] Impression: 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 (Treated by ID in [place] Dr. Harris). Dr. Torres treated him [...] from the original note were not included. [facility] Medicine Services PROGRESS NOTE Patient [...] osteomyelitis at this time. Electronically Signed: Hugh Buenrsotro 04/07/2025 9:58 AM EDT Workstation ID: [id number] I have personally reviewed the therapy plans: [...] Jason Álvarez DO 04/07/25 * Larisa Hamilton [facility] - 04/07/2025 11:56 AM EDT Pharmacy to [...] INFECTIOUS DISEASE Progress Note Won Dennis 1980 [id number] Date of Consult: 04/07/2025 Admission Date: 04/04/2025 [...] which prompted him to seek treatment at [facility]. He is known to Dr. Dean. He [...] wound 05/09/25. HDS, on Heparin gtt. Currently [facility] has been asked to manage the [...] 10 mg, 10 mg, Rectal, Daily PRN, Leonroa Shepherd MD budesonide-formoterol (SYMBICORT) 160-4.5 MCG/ACT inhaler [...] Application, 1 Application, Topical, Q12H, Ayah Valentin, NETBACKUP ADMINISTRATOR, 1 Application at 04/06/252101 DAPTOmycin (CUBICIN) 800 [...] Shepherd MD, 20 mg at 04/06/25899 heparin 76025 units/250 mL (100 units/mL) in 0.45 % NaCl infusion, 18 Units/kg/hr, Intravenous, Titrated, Cherri Beatty, [facility], Last Rate: 24.1 mL/hr at 04/07/258, 18 [...] 250 mg, 250 mg, Oral, BID, Leonora Shehperd MD, 250 mgat 04/06/252100 sertraline (ZOLOFT) tablet [...] With & Without Contrast - In process [[id number]] Resulted: 04/07/25828 Updated: 04/07/25828 This result has not been signed. Information might be incomplete. 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 (Treated by ID in [place] Dr. Harris). Dr. Torres treated him [...] mg Daily 04/05/2025 -- Route: Oral heparin 97553 units/250 mL (100 units/mL) in 0.45 % [...] -- Admin Instructions: Open Order & Select [facility] Electrolyte Replacement Protocol Algorithm to [...] -- Admin Instructions: Open Order & Select [facility] Electrolyte Replacement Protocol Algorithm to [...] MD 04/07/25 06:07 EDT * Cherri Beatty [facility] - 04/06/2025 1:47 PM EDT Pharmacy to [...] from the original note were not included. [facility] Medicine Services PROGRESS NOTE Patient [...] MD 04/04/2025 11:00 PM EDT Workstation ID: [id number] I have personally reviewed the therapy plans: [...] mg Daily 04/05/2025 -- Route: Oral heparin 31124 units/250 mL (100 units/mL) in 0.45 % [...] -- Admin Instructions: Open Order & Select [facility] Electrolyte Replacement Protocol Algorithm to [...] INFECTIOUS DISEASE follow up. Won Dennis 1980 [id number] Date of Consult: 04/06/2025 Admission Date: 04/04/2025 [...] which prompted him to seek treatment at [facility]. He is known to Dr. Dean. He [...] wound 05/09/25. HDS, on Heparin gtt. Currently [facility] has been asked to manage the [...] Application, 1 Application, Topical, Q12H, Ayah Valentin, NETBACKUP ADMINISTRATOR, 1 Application at 04/06/25 0859 DAPTOmycin (CUBICIN) [...] MD, 20 mg at 04/06/25 0900 heparin 38126 units/250 mL (100 units/mL) in 0.45 % NaCl infusion, 18 Units/kg/hr, Intravenous, Titrated, Cherri Beatty [facility], Last Rate: 24.1 mL/hr at 04/06/25 1420, [...] 100 mg, 100 mg, Oral, Nightly, Leonora Shpeherd MD, 100 mg at 04/05/252158 [COMPLETED] Insert [...] Tibia Fibula Right With & Without Contrast [[id number]] Collected: 04/04/252256 Updated: 04/04/252302 Narrative: MRI TIBIA [...] represent a small area of phlegmonous change (esdktq64 image 10) measuring approximately 1.6 cm which [...] MD 04/04/2025 11:00 PM EDT Workstation ID: [id number] Impression: 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 (Treated by ID in [place] Dr. Harris). Dr. Torres treated him [...] MD 04/06/2025 16:00 EDT * Cherri Beatty, [facility] - 04/05/2025 3:01 PM EDT Pharmacy to [...] from the original note were not included. [facility] Medicine Services PROGRESS NOTE Patient [...] MD 04/04/2025 11:00 PM EDT Workstation ID: [id number] I have personally reviewed the therapy plans: [...] from the original note were not included. [facility] Medicine Services HISTORY AND PHYSICAL [...] MD 04/04/2025 11:00 PM EDT Workstation ID: [id number] Assessment & Plan Assessment & Plan Won [...] 4FR PICC placed by Rhoda Bonner RN [facility]3], tip verified by 3CG see LDA. * Sushil Dean Jr., MD - 04/05/2025 8:07 AM EDTAssociated Order(s): IP CONSULT TO ORTHOPEDIC SURGERY [facility], [facility] [address] [address] Orthopedic Consult Patient: Won Dennis Date of Admission: 04/04/2025 4:10 PM Date of : 1980 Attending Physician: Jason Álvarez DO Consulting Physician: Sushil Dean Jr, MD Chief Complaint: 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 male admitted to [facility] with Right BKA infection [...] was evaluated in the emergency department in [place], was discharged with instructions for follow-up. He [...] tablet by mouth Daily. 04/03/2025 Morning Lactobacillus-Inulin ([facility] LivQuik) capsule Take 200 mg by mouth Daily. [...] MD 04/04/2025 11:00 PM EDT Workstation ID: [id number] Assessment: Right BKA infection 44-year-old male with [...] DISEASE CONSULT/INITIAL HOSPITAL VISIT Won Dennis 1980 [id number] Date of Consult: 04/05/2025 Admission Date: 04/04/2025 [...] which prompted him to seek treatment at [facility]. He is known to Dr. Dean. He [...] wound 05/09/25. HDS, on Heparin gtt. Currently [facility] has been asked to manage the [...] tablet 40 mg, 40 mg, Oral, Nightly, Lenoora Shepherd MD, 40 mg at 04/04/25 9099 sennosides-docusate (PERICOLACE) 8.6-50 MG per tablet 2 [...] MD, 20 mg at 04/05/25 0916 heparin 23599 units/250 mL (100 units/mL) in 0.45 % [...] flush 10 mL, 10 mL, Intravenous, PRN, eLonora Shepherd MD sodium chloride 0.9 % flush [...] 0.9 % 100 mL MBP Ordering Provider: Loenora Shepherd MD 2,000 mg 200 mL/hr over [...] Tibia Fibula Right With & Without Contrast [[id number]] Collected: 04/04/252256 Updated: 04/04/252302 Narrative: MRI TIBIA [...] represent a small area of phlegmonous change ([id number] image 10) measuring approximately 1.6 cm which [...] MD 04/04/2025 11:00 PM EDT Workstation ID: [id number] Impression: 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 (Treated by ID in [place] Dr. Harris). Dr. Torres treated him [...] Jr., MD - 04/08/2025 3:51 PM EDT [facility] OPERATIVE REPORT PATIENT NAME: Won Dennis DATE OF : 1980 PREOP DIAGNOSIS: Right Right below-knee amputation infection POSTOP DIAGNOSIS: Same. PROCEDURE: Right Right 09047: Secondary closure below-knee amputation SURGEON: Sushil Dean MD OPERATIVE TEAM: Lost And Found Clerk: Susi Grullon RN Scrub Person: Mary Paredes Scrub Person Extra: Hortencia Toribio Other: Katt Gotti RN; Charis Neville RN ANESTHETIST: Anesthesiologist: Ulises Hoffman MD CLOTHING TRADES WORKERS: Stan Casillas CRNA Student Nurse Reservoir Engineer: Karol Albert SRNA ANESTHESIA: Choice ESTIMATED BLOOD [...] CULTURE (Canceled) Sushil Dean Jr., MD 04/08/25 7399 Description: RIGHT LEG DEEP WOUND FOR CULTURE [...] Jr., MD - 04/07/2025 9:03 PM EDT [facility] [address] [address] OPERATIVE REPORT PATIENT NAME: Won Dennis DATE OF : 1980 PREOP DIAGNOSIS: Right Right below knee amputation stump infection POSTOP DIAGNOSIS: Same. PROCEDURE: Right Right 00362: Incision and drainage of surgical site infection 83762: Debridement of skin, subcutaneous tissue, muscle 66425: Wound vacuum-assisted closure SURGEON: Sushil Dean MD OPERATIVE TEAM: Lost And Found Clerk: Anum Sanchez RN Scrub Person: Hortencia Toribio; Gerald Ivey ICE HOUSE SUPERVISOR: Anesthesiologist: Luci Alonso DO ANESTHESIA: General ESTIMATED [...] ago swellling of the area. seen at [facility] yesterday for CT and US, here for [...] this chart in the absence of a asset manager. No orders to display RADIOLOGY: [x] Radiologist's [...] 04/11/2025 1:30 PM EDT Continued Stay Note Daniels Patient Name: Won Dennis Today's Date: 04/11/2025 Admit Date: 04/04/2025 Plan: Home with outpatient infusion. Discharge Plan Row Name 04/11/25 1155 Plan Plan Home with outpatient infusion. Final Discharge Disposition Code 01 - home or self-care Final Note Patient discharging today. He is discharging home with outpatient infusion at [facility]. He has an appointment with [facility] at 8:00 am tomorrow. They will do PICC line dressing changes. DEBRA has spoke with Dena at [facility] today multiple times to get setup [...] to get IV ABX at home with [facility]; however, Medicaid lapsed on 04/08. DEBRA was unaware until this morning that Medicaid has lapsed. Patient explained that he has Medicare A and B. CM spoke with KELLEE and given themhis Medicare number [id number], she sent it to Admission. DEBRA spoke with Kerri, with [facility], and explained that he had Medicare A and B. However, it will not cover home infusion. It will be $64.00 a day out of packet. Patients can go to the Infusion center at [facility], and it will cover the cost as an outpatient. He will need to go there every day for infusion. They will be able to do the patients' PICC line dressing changes and lab work. CM called [facility] infusion center they can accept patient and start him. He is known for their facility. The Facility will need to run it through his insurance first. CM faxed the orders over to [facility] at [phone]. CM will follow up with them tomorrow at [facility] to make sure they received the [...] with patient at bedside today. [facility] Patient getting PICC line [...] note were not included. Discharge Planning Assessment Daniels Patient Name: Won Dennis Today's Date: 04/07/2025 [...] family Patient/Family Anticipated Services at Transition case linersafety and skill based pay manager Anticipated family or friend will provide Discharge Needs Assessment Equipment Currently Used at Home glucometer;shower chair;pulse ox;bp cuff;prosthesis;crutches Equipment Needed After Discharge none Discharge Plan Row Name 04/07/25 1144 Plan Plan Home Patient/Family in Agreement with Plan yes Plan Comments CM spoke with patient at bedside today. Patient lives with and his 5 kids in [facility]. 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 He has walker, cane, shower chair, and crutches. He requested a wheelchair for home. CM will order wheelchair through [employer]. He is not current with home health services. PCP is Dr. Jordan. Insurance is [facility] [place]. Patient discharge plan is home with priavte transport. CM will follow for any discharge needs. Final Discharge Disposition Code 01 - home or self-care Continued Care and Services - Admitted Since 04/04/2025 No active coordination exists. Demographic Summary Row Name 04/07/25 1143 General Information Arrived From hospital Preferred Language Libyan Functional Status Row Name 04/07/25 1143 Functional [...] documented in this encounter Plan of Treatment Not on [...] 3:4 0 PM EDT Right BKA infection [place] SEC ABDOMINAL WALL SUTURE EVISCERATION/DEHSN 04/08/2025 3:20 [...] CBC Auto Differential (04/11/2025 3:40 AM EDT) [facility] WBC 7.87 3.40 - 10.80 10*3/mm3 04/11/2025 4:02 AM EDT [facility] RBC 4.70 4.14 - 5.80 10*6/mm3 04/11/2025 4:02 AM EDT [facility] Hemoglobin 12.8(L) 13.0 - 17.7 g/dL 04/11/2025 4:02 AM EDT [facility] Hematocrit 40.5 37.5 - 51.0 % 04/11/2025 4:02 AM EDT [facility] MCV 86.2 79.0 - 97.0 fL 04/11/2025 4:02 AM EDT [facility] MCH 27.2 26.6 - 33.0 pg 04/11/2025 4:02 AM EDT [facility] MCHC 31.6 31.5 - 35.7 g/dL 04/11/2025 4:02 AM EDT [facility] RDW 12.9 12.3 - 15.4 % 04/11/2025 4:02 AM EDT [facility] RDW-SD 40.5 37.0 - 54.0 fl 04/11/2025 4:02 AM EDT [facility] MPV 9.2 6.0 - 12.0 fL 04/11/2025 4:02 AM EDT [facility] Platelets 267 140 - 450 10*3/mm3 04/11/2025 4:02 AM EDT [facility] Neutrophil % 59.5 42.7 - 76.0 % 04/11/2025 4:02 AM EDT [facility] Lymphocyte % 26.3 19.6 - 45.3 % 04/11/2025 4:02 AM EDT [facility] Monocyte % 9.3 5.0 - 12.0 % 04/11/2025 4:02 AM EDT [facility] Eosinophil % 4.1 0.3 - 6.2 % 04/11/2025 4:02 AM EDT [facility] Basophil % 0.4 0.0 - 1.5 % 04/11/2025 4:02 AM EDT [facility] Immature Grans % 0.4 0.0 - 0.5 % 04/[facility] Neutrophils, Absolute 4.69 1.70 - 7.00 10*3/mm3 04/11/2025 4:02 AM [facility] Lymphocytes, Absolute 2.07 0.70 - 3.10 10*3/mm3 04/11/2025 4:[facility] Monocytes, Absolute 0.73 0.10 - 0.90 10*3/mm3 04/11/2025 4:02 AM [facility] Eosinophils, Absolute 0.32 0.00 - 0.40 10*3/mm3 04/11/2025 4:02 AM [facility] Basophils, Absolute 0.03 0.00 - 0.20 10*3/mm3 04/11/2025 4:02 AM [facility] Immature Grans, Absolute 0.03 0.00 - 0.05 10*3/mm3 04/11/2025 4:02 AM [facility] nRBC 0.0 0.0 - 0.2 /100 WBC 04/11/2025 4:02 AM [facility] Blood Venipuncture / Unknown 04/11/2025 3:40 AM EDT 04/11/2025 3:59 AM EDT us Sushil Dean Jr., MD LAB BLOOD ORDERABLES Fi nal Result [facility]
[address] [place] [address], * (ABNORMAL) Comprehensive Metabolic Panel (04/11/2025 3:40 AM EDT) Glucose 108(H) 65 - 99 mg/dL 04/11/2025 4:19 AM EDT [facility] BUN 12.5 6.0 - 20.0 mg/dL 04/11/2025 4:19 AM EDT [facility] Creatinine 0.68(L) 0.76 - 1.27 mg/dL 04/11/2025 4:19 AM EDT [facility] Sodium 140 136 - 145 mmol/L 04/11/2025 4:19 AM EDT [facility] Potassium 3.8 3.5 - 5.2 mmol/L 04/11/2025 4:19 AM EDT [facility] Chloride 105 98 - 107 mmol/L 04/11/2025 4:19 AM EDT [facility] CO2 28.2 22.0 - 29.0 mmol/L 04/11/2025 4:19 AM EDT [facility] Calcium 8.2(L) 8.6 - 10.5 mg/dL 04/11/2025 4:19 AM EDT [facility] Total Protein 6.1 6.0 - 8.5 g/dL 04/11/2025 4:19 AM EDT [facility] Albumin 3.1(L) 3.5 - 5.2 g/dL 04/11/2025 4:19 AM EDT [facility] ALT (SGPT) 52(H) 1 - 41 U/L 04/11/2025 4:19 AM EDT [facility] AST (SGOT) 40 1 - 40 U/L 04/11/2025 4:19 AM EDT [facility] Alkaline Phosphatase 99 39 - 117 U/L 04/11/2025 4:19 AM EDT [facility] Total Bilirubin 0.2 0.0 - 1.2 mg/dL 04/11/2025 4:19 AM EDT [facility] Globulin 3.0 gm/dL 04/11/2025 4:19 AM EDT [facility] Comment:Calculated Result A/G Ratio 1.0 g/dL 04/11/2025 4:19 AM EDT [facility] BUN/Creatinine Ratio 18.4 7.0 - 25.0 04/11/2025 4:19 AM EDT [facility] Anion Gap 6.8 5.0 - 15.0 mmol/L 04/11/2025 4:19 AM EDT [facility] eGFR 117.5 >60.0 mL/min/1.7 3 04/11/2025 4:19 AM EDT [facility] Blood Venipuncture / Unknown 04/11/2025 3:40 AM EDT 04/11/2025 3:56 AM EDT [facility] - 04/11/2025 4:19 AM [...] race as a factor us Rosario Hill NETBACKUP ADMINISTRATOR LAB BLOOD ORDERABLES Final Result [facility]
[address] [place] [address], * (ABNORMAL) CBC Auto Differential (04/10/2025 3:46 AM EDT) WBC 9.60 3.40 - 10.80 10*3/mm3 04/10/2025 3:56 AM EDT [facility] RBC 4.67 4.14 - 5.80 10*6/mm3 04/10/2025 3:56 AM EDT [facility] Hemoglobin 12.9(L) 13.0 - 17.7 g/dL 04/10/2025 3:56 AM EDT [facility] Hematocrit 40.1 37.5 - 51.0 % 04/10/2025 3:56 AM EDT [facility] MCV 85.9 79.0 - 97.0 fL 04/10/2025 3:56 AM EDT [facility] MCH 27.6 26.6 - 33.0 pg 04/10/2025 3:56 AM EDT [facility] MCHC 32.2 31.5 - 35.7 g/dL 04/10/2025 3:[facility] RDW 12.9 12.3 - 15.4 % 04/10/2025 3:56 AM EDT [facility] RDW-SD 40.5 37.0 - 54.0 fl 04/10/2025 3:[facility] MPV 9.5 6.0 - 12.0 fL 04/10/2025 3:56 AM EDT [facility] Platelets 227 140 - 450 10*3/mm3 04/10/2025 3:56 AM EDT [facility] Neutrophil % 59.1 42.7 - 76.0 % 04/10/2025 3:56 AM EDT [facility] Lymphocyte % 29.0 19.6 - 45.3 % 04/10/2025 3:56 AM EDT [facility] Monocyte % 8.1 5.0 - 12.0 % 04/10/2025 3:56 AM EDT [facility] Eosinophil % 3.2 0.3 - 6.2 % 04/10/2025 3:56 AM EDT [facility] Basophil % 0.4 0.0 - 1.5 % 04/10/2025 3:56 AM EDT [facility] Immature Grans % 0.2 0.0 - 0.5 % 04/10/2025 3:56 AM EDT [facility] Neutrophils, Absolute 5.67 1.70 - 7.00 10*3/mm3 04/10/2025 3:56 AM EDT [facility] Lymphocytes, Absolute 2.78 0.70 - 3.10 10*3/mm3 04/10/2025 3:56 AM EDT [facility] Monocytes, Absolute 0.78 0.10 - 0.90 10*3/mm3 04/10/2025 3:56 AM EDT [facility] Eosinophils, Absolute 0.31 0.00 - 0.40 10*3/mm3 04/10/2025 3:56 AM EDT [facility] Basophils, Absolute 0.04 0.00 - 0.20 10*3/mm3 04/10/2025 3:56 AM EDT [facility] Immature Grans, Absolute 0.02 0.00 - 0.05 10*3/mm3 04/10/2025 3:56 AM EDT [facility] nRBC 0.0 0.0 - 0.2 /100 WBC 04/10/2025 3:56 AM EDT [facility] Blood Venipuncture / Unknown 04/10/2025 3:46 AM EDT 04/10/2025 3:53 AM EDT us Jason Álvarez DO LAB BLOOD ORDERABLES Final Resul t [facility]
[address] [place] [address], * (ABNORMAL) Basic Metabolic Panel (04/10/2025 3:46 AM EDT) [facility] Glucose 125(H) 65 - 99 mg/dL 04/10/2025 4:20 AM EDT [facility] BUN 15.9 6.0 - 20.0 mg/dL 04/10/2025 4:20 AM EDT [facility] Creatinine 0.77 0.76 - 1.27 mg/dL 04/10/2025 4:20 AM EDT [facility] Sodium 137 136 - 145 mmol/L 04/10/2025 4:20 AM EDT [facility] Potassium 3.9 3.5 - 5.2 mmol/L 04/10/2025 4:20 AM EDT [facility] Chloride 102 98 - 107 mmol/L 04/10/2025 4:20 AM EDT [facility] CO2 26.9 22.0 - 29.0 mmol/L 04/10/2025 4:20 AM EDT [facility] Calcium 7.9(L) 8.6 - 10.5 mg/dL 04/10/2025 4:20 AM EDT [facility] BUN/Creatinine Ratio 20.6 7.0 - 25.0 04/10/2025 4:20 AM EDT [facility] Anion Gap 8.1 5.0 - 15.0 mmol/L 04/10/2025 4:20 AM EDT [facility] eGFR 113.2 >60.0 mL/min/1.7 3 04/10/2025 4:20 AM EDT [facility] Blood Venipuncture / Unknown 04/10/2025 3:46 AM EDT 04/10/2025 3:52 AM EDT [facility] - 04/10/2025 4:20 AM [...] DO LAB BLOOD ORDERABLES Final Resul t [facility]
[address] [place] [address], * Heparin Anti-Xa (04/10/2025 3:46 AM EDT) [facility] Heparin Anti-Xa (UFH) 0.35 0.30 - 0.70 IU/ml 04/10/2025 4:23 AM EDT [facility] Blood Venipuncture / Unknown 04/10/2025 3:46 AM EDT 04/10/2025 3:[address] [facility] LAB BLOOD ORDERABLES Final R esult [facility]
[address] [place] [address], * Heparin Anti-Xa (04/09/2025 10:05 AM EDT) [facility] Heparin Anti-Xa (UFH) 0.36 0.30 - 0.70 IU/ml 04/09/2025 11:12 AM EDT [facility] Blood Venipuncture / Unknown 04/09/2025 10:05 AM EDT 04/09/2025 10:[address] [facility] LAB BLOOD ORDERABLES Final R esult [facility]
[address] [place] [address], * (ABNORMAL) CBC Auto Differential (04/09/2025 4:18 AM EDT) [facility] WBC 11.00(H) 3.40 - 10.80 10*3/mm3 04/09/2025 4:50 AM EDT [facility] RBC 4.70 4.14 - 5.80 10*6/mm3 04/09/2025 4:50 AM EDT [facility] Hemoglobin 13.0 13.0 - 17.7 g/dL 04/09/2025 4:[facility] Hematocrit 40.4 37.5 - 51.0 % 04/09/2025 4:50 [facility] MCV 86.0 79.0 - 97.0 fL 04/09/2025 4:50 AM EDT [facility] MCH 27.7 26.6 - 33.0 pg 04/09/2025 4:50 AM EDT [facility] MCHC 32.2 31.5 - 35.7 g/dL 04/09/2025 4:50 [facility] RDW 12.8 12.3 - 15.4 % 04/09/2025 4:50 [facility] RDW-SD 39.9 37.0 - 54.0 fl 04/09/2025 4:50 AM [facility] MPV 10.0 6.0 - 12.0 fL 04/09/2025 4:50 [facility] Platelets 211 140 - 450 10*3/mm3 04/09/2025 4:50 [facility] Neutrophil % 74.8 42.7 - 76.0 % 04/09/2025 4:50 [facility] Lymphocyte % 15.4(L) 19.6 - 45.3 % 04/09/2025 4:50 AM EDT [facility] Monocyte % 8.5 5.0 - 12.0 % 04/09/2025 4:50 AM EDT [facility] Eosinophil % 0.6 0.3 - 6.2 % 04/09/2025 4:50 AM EDT [facility] Basophil % 0.4 0.0 - 1.5 % 04/09/2025 4:50 AM EDT [facility] Immature Grans % 0.3 0.0 - 0.5 % 04/09/2025 4:50 AM EDT [facility] Neutrophils, Absolute 8.23(H) 1.70 - 7.00 10*3/mm3 04/09/2025 4:50 AM EDT [facility] Lymphocytes, Absolute 1.69 0.70 - 3.10 10*3/mm3 04/09/2025 4:50 AM EDT [facility] Monocytes, Absolute 0.94(H) 0.10 - 0.90 10*3/mm3 04/09/2025 4:50 AM EDT [facility] Eosinophils, Absolute 0.07 0.00 - 0.40 10*3/mm3 04/09/2025 4:50 AM EDT [facility] Basophils, Absolute 0.04 0.00 - 0.20 10*3/mm3 04/09/2025 4:50 AM EDT [facility] Immature Grans, Absolute 0.03 0.00 - 0.05 10*3/mm3 04/09/2025 4:50 AM EDT [facility] nRBC 0.0 0.0 - 0.2 /100 WBC 04/09/2025 4:50 AM EDT [facility] Blood Venipuncture / Unknown 04/09/2025 4:18 AM EDT 04/09/2025 4:31 AM EDT Sushil Dean Jr., MD LAB BLOOD ORDERABLES Fi nal Result [facility]
[address] [place] [address], * Heparin Anti-Xa (04/09/2025 4:18 AM EDT) Heparin Anti-Xa (UFH) 0.41 0.30 - 0.70 IU/ml 04/09/2025 4:53 AM EDT [facility] Blood Venipuncture / Unknown 04/09/2025 4:18 AM EDT 04/09/2025 4:31 AM EDT Una LundbergD LAB BLOOD ORDERABLES Final R esult [facility]
[address] [place] [address], * (ABNORMAL) Basic Metabolic Panel (04/09/2025 4:18 AM EDT) Glucose 147(H) 65 - 99 mg/dL 04/09/2025 5:33 AM EDT [facility] BUN 23.0(H) 6.0 - 20.0 mg/dL 04/09/2025 5:33 AM EDT [facility] Creatinine 1.15 0.76 - 1.27 mg/dL 04/09/2025 5:33 AM EDT [facility] Sodium 135(L) 136 - 145 mmol/L 04/09/2025 5:33 AM EDT [facility] Potassium 4.2 3.5 - 5.2 mmol/L 04/09/2025 5:33 AM EDT [facility] Chloride 100 98 - 107 mmol/L 04/09/2025 5:33 AM EDT [facility] CO2 26.0 22.0 - 29.0 mmol/L 04/09/2025 5:33 AM EDT [facility] Calcium 8.2(L) 8.6 - 10.5 mg/dL 04/09/2025 5:33 AM EDT [facility] BUN/Creatinine Ratio 20.0 7.0 - 25.0 04/09/2025 5:33 AM EDT [facility] Anion Gap 9.0 5.0 - 15.0 mmol/L 04/09/2025 5:33 AM EDT [facility] eGFR 80.5 >60.0 mL/min/1.7 3 04/09/2025 5:33 AM EDT [facility] Blood Venipuncture / Unknown 04/09/2025 4:18 AM EDT 04/09/2025 4:29 AM EDT Narrative [facility] - 04/09/2025 5:33 AM EDT [...] ORDERABLES Fi nal Result Performing Organization Address City/[facility]/ZIP Co de Phone Number [facility]
[address] [place] [address], * Wound Culture - Swab, Leg, Right (04/08/2025 3:40 PM EDT) Wound Culture No growth at 3 days ALIZA 04/11/2025 10:40 AM EDT [facility] Gram Stain Few (2+) WBCs seen 04/11/2025 10:40 AM EDT [facility] Gram Stain No organisms seen 04/11/2025 10:40 AM EDT [facility] Swab Structure of right lower limb / Unknown 04/08/2025 3:40 PM EDT 04/08/2025 8:05 PM EDT Sushil Dean Jr., MD MICROBIOLOGY - GENERAL ORDERABLES Final Result [facility]
[address] [place] [address], [facility]
[address] [place] [address], * Anaerobic Culture - Swab, Leg, Right (04/08/2025 3:40 PM EDT) Anaerobic Culture No anaerobes isolated at 5 days ALIZA 04/13/2025 7:24 AM EDT [facility] Swab Structure of right lower limb / Unknown 04/08/2025 3:40 PM EDT 04/08/2025 8:05 PM EDT Sushil Dean Jr., MD MICROBIOLOGY - GENERAL ORDERABLES Final Result Performing Organization Address City/[facility]/ZIP Co de Phone Number [facility]
[address] [place] [address], * Scan Slide (04/08/2025 8:41 AM EDT) RBC Morphology Normal Normal 04/08/2025 11:02 AM EDT [facility] WBC Morphology Normal Normal 04/08/2025 11:02 AM EDT [facility] Platelet Estimate Adequate Normal 04/08/2025 11:02 AM EDT [facility] Clumped Platelets Present None Seen 04/08/2025 11:02 AM EDT [facility] Blood Venipuncture / Unknown 04/08/2025 8:41 AM EDT 04/08/2025 9:10 AM EDT Una LundbergD LAB BLOOD ORDERABLES Final R esult Performing Organization Address City/[facility]/ZIP Co de Phone Number [facility]
[address] [place] [address], * (ABNORMAL) CBC Auto Differential (04/08/2025 8:41 AM EDT) WBC 10.07 3.40 - 10.80 10*3/mm3 04/08/2025 11:02 AM EDT [facility] RBC 5.01 4.14 - 5.80 10*6/mm3 04/08/2025 11:02 AM EDT [facility] Hemoglobin 14.0 13.0 - 17.7 g/dL 04/08/2025 11:02 AM EDT [facility] Hematocrit 42.7 37.5 - 51.0 % 04/08/2025 11:02 AM [facility] MCV 85.2 79.0 - 97.0 fL 04/08/2025 11:02 AM [facility] MCH 27.9 26.6 - 33.0 pg 04/08/2025 11:02 AM [facility] MCHC 32.8 31.5 - 35.7 g/dL 04/08/2025 11:02 AM [facility] RDW 12.6 12.3 - 15.4 % 04/08/2025 11:02 AM [facility] RDW-SD 38.9 37.0 - 54.0 fl 04/08/2025 11:02 AM [facility] MPV 11.0 6.0 - 12.0 fL 04/08/2025 11:02 AM [facility] Platelets 118(L) 140 - 450 10*3/mm3 04/08/2025 11:02 AM [facility] Neutrophil % 85.1(H) 42.7 - 76.0 % 04/08/2025 11:02 AM [facility] Lymphocyte % 9.3(L) 19.6 - 45.3 % 04/08/2025 11:02 AM [facility] Monocyte % 4.6(L) 5.0 - 12.0 % 04/08/2025 11:02 AM [facility] Eosinophil % 0.3 0.3 - 6.2 % 04/08/2025 11:02 AM [facility] Basophil % 0.2 0.0 - 1.5 % 04/08/2025 11:02 AM [facility] Immature Grans % 0.5 0.0 - 0.5 % 04/08/2025 11:02 AM [facility] Neutrophils, Absolute 8.57(H) 1.70 - 7.00 10*3/mm3 04/08/2025 11:02 AM [facility] Lymphocytes, Absolute 0.94 0.70 - 3.10 10*3/mm3 04/08/2025 11:02 AM EDT [facility] Monocytes, Absolute 0.46 0.10 - 0.90 10*3/mm3 04/08/2025 11:02 AM EDT [facility] Eosinophils, Absolute 0.03 0.00 - 0.40 10*3/mm3 04/08/2025 11:02 AM EDT [facility] Basophils, Absolute 0.02 0.00 - 0.20 10*3/mm3 04/08/2025 11:02 AM EDT [facility] Immature Grans, Absolute 0.05 0.00 - 0.05 10*3/mm3 04/08/2025 11:02 AM EDT [facility] nRBC 0.0 0.0 - 0.2 /100 WBC 04/08/2025 11:02 AM EDT [facility] Blood Venipuncture / Unknown 04/08/2025 8:41 AM EDT 04/08/2025 9:10 AM EDT Una Perla PharmD LAB BLOOD ORDERABLES Final R esult [facility]
[address] [place] [address], * (ABNORMAL) Basic Metabolic Panel (04/08/2025 8:41 AM EDT) Glucose 125(H) 65 - 99 mg/dL 04/08/2025 9:51 AM EDT [facility] BUN 13.2 6.0 - 20.0 mg/dL 04/08/2025 9:51 AM EDT [facility] Creatinine 0.69(L) 0.76 - 1.27 mg/dL 04/08/2025 9:51 AM EDT [facility] Sodium 136 136 - 145 mmol/L 04/08/2025 9:51 AM EDT [facility] Potassium 4.6 3.5 - 5.2 mmol/L 04/08/2025 9:51 AM EDT [facility] Chloride 102 98 - 107 mmol/L 04/08/2025 9:51 AM EDT [facility] CO2 23.5 22.0 - 29.0 mmol/L 04/08/2025 9:51 AM EDT [facility] Calcium 8.4(L) 8.6 - 10.5 mg/dL 04/08/2025 9:51 AM EDT [facility] BUN/Creatinine Ratio 19.1 7.0 - 25.0 04/08/2025 9:51 AM EDT [facility] Anion Gap 10.5 5.0 - 15.0 mmol/L 04/08/2025 9:51 AM EDT [facility] eGFR 117.0 >60.0 mL/min/1.7 3 04/08/2025 9:51 AM EDT [facility] Blood Venipuncture / Unknown 04/08/2025 8:41 AM EDT 04/08/2025 9:09 AM EDT Narrative [facility] - 04/08/2025 9:51 AM EDT GFR [...] MD LAB BLOOD ORDERABLES Fi nal Result [facility]
[address] [place] [address], * Heparin Anti-Xa (04/08/2025 8:41 AM EDT) Heparin Anti-Xa (UFH) 0.33 0.30 - 0.70 IU/ml 04/08/2025 9:40 AM EDT [facility] Blood Venipuncture / Unknown 04/08/2025 8:41 AM EDT 04/08/2025 9:10 AM EDT Sushil Dean Jr., MD LAB BLOOD ORDERABLES Fi nal Result Performing Organization Address City/[facility]/ZIP Co de Phone Number [facility]
[address] [place] [address], [place] [phone] * [place] C Arm During Surgery (04/07/2025 9:32 PM EDT) Narrative SYSTEMGENERATED, DOCUMENTATION - 04/07/2025 9:38 PM EDT This procedure was auto-finalized with no dictation required. Sushil Dean Jr., MD IMG FLUOROSCOPY ORDERAB LES Final Result * Wound Culture - Swab, Leg, Right (04/07/2025 9:14 PM EDT) Pathologist [facility] Wound Culture No growth at 3 days ALIZA 04/11/2025 10:40 AM EDT [facility] Gram Stain Occasional WBCs seen 04/11/2025 10:40 AM EDT [facility] Gram Stain No organisms seen 04/11/2025 10:40 AM EDT [facility] Swab Structure of right lower limb / Unknown Collection / Unknown 04/07/2025 9:14 PM EDT 04/08/2025 4:36 AM EDT Sushil Dean Jr., MD MICROBIOLOGY - GENERAL ORDERABLES Final Result Performing Organization Address City/[facility]/ZIP Co de Phone Number [facility]
[address] [place] [address], [place] [phone] [facility]
[address] [place] [address], * Anaerobic Culture - Swab, Leg, Right (04/07/2025 9:14 PM EDT) Anaerobic Culture No anaerobes isolated at 5 days ALIZA 04/13/2025 7:21 AM EDT [facility] Swab Structure of right lower limb / Unknown Collection / Unknown 04/07/2025 9:14 PM EDT 04/08/2025 4:36 AM EDT Sushil Dean Jr., MD MICROBIOLOGY - GENERAL ORDERABLES Final Result Performing Organization Address City/[facility]/ZIP Co de Phone Number [facility]
[address] [place] [address], * Anaerobic Culture - Tissue, Leg (04/07/2025 9:13 PM EDT) Anaerobic Culture No anaerobes isolated at 5 days ALIZA 04/13/2025 7:21 AM EDT [facility] Tissue Lower limb structure / Unknown Collection / Unknown 04/07/2025 9:13 PM EDT 04/08/2025 4:54 AM EDT Jason Álvarez DO MICROBIOLOGY - GENERAL ORDERABLE S Final Result [facility]
[address] [place] [address], * AFB Culture - Tissue, Leg, Right (04/07/2025 9:13 PM EDT) AFB Culture No AFB isolated at 6 weeks 05/20/2025 4:00 AM [facility] AFB Stain No acid fast bacilli seen on concentrated smear 05/20/2025 4:00 AM [facility] Tissue Structure of right lower limb / Unknown 04/07/2025 9:13 PM EDT 04/08/2025 4:54 AM EDT Sushil Dean Jr., MD MICROBIOLOGY - GENERAL ORDERABLES Final Result Performing Organization Address City/[facility]/ZIP Co de Phone Number [facility]
[address] [place] [address], [place] [phone] * Tissue / Bone Culture - Tissue, Leg, Right (04/07/2025 9:13 PM EDT) Tissue Culture No growth at 3 days ALIZA 04/11/2025 10:36 AM EDT [facility] Gram Stain Rare (1+) WBCs seen 04/11/2025 10:36 AM EDT [facility] Gram Stain No organisms seen 04/11/2025 10:36 AM EDT [facility] Tissue Structure of right lower limb / Unknown 04/07/2025 9:13 PM EDT 04/08/2025 4:54 AM EDT us Sushil Dean Jr., MD MICROBIOLOGY - GENERAL ORDERABLES Final Result Performing Organization Address [facility] Co de Phone Number [facility]
[address] [place] [address], [place] [phone] [facility]
[address] [place] [address], [place] [phone] * Fungus Culture - Tissue, Leg, Right (04/07/2025 9:13 PM EDT) Fungus Culture No fungus isolated at 6 weeks 05/20/2025 4:00 AM EST [facility] Tissue Structure of right lower limb / Unknown 04/07/2025 9:13 PM EDT 04/08/2025 4:54 AM EDT Sushil Dean Jr., MD MICROBIOLOGY - GENERAL ORDERABLES Final Result Performing Organization Address City/[facility]/ZIP Co de Phone Number [facility]
[address] [place] [address], * (ABNORMAL) Wound Culture - Swab, Leg, Right (04/07/2025 9:07 PM EDT) Wound Culture Light growth (2+) Staphylococcus aureus, MRSA(A) ALIZA 04/10/2025 10:38 AM EDT [facility] Comment: Methicillin resistant Staphylococcus aureus, Patient may be an isolation risk. Gram Stain Few (2+) WBCs seen 04/10/2025 10:38 AM EDT [facility] Gram Stain No organisms seen 025 10:38 AM EDT [facility] Swab Structure of right lower [...] MD MICROBIOLOGY - GENERAL ORDERABLES Final Result [facility]
[address] [place] [address], [facility]
[address] [place] [address], * Anaerobic Culture - Swab, Leg, Right (04/07/2025 9:07 PM EDT) Anaerobic Culture No anaerobes isolated at 5 days ALIZA 04/13/2025 7:21 AM EDT [facility] Swab Structure of right lower limb / Unknown Collection / Unknown 04/07/2025 9:07 PM EDT 04/08/2025 4:36 AM EDT Sushil Dean Jr., MD MICROBIOLOGY - GENERAL ORDERABLES Final Result [facility]
[address] [place] [address], * Heparin Anti-Xa (04/07/2025 9:10 AM EDT) [facility] Heparin Anti-Xa (UFH) 0.30 0.30 - 0.70 IU/ml 04/07/2025 10:12 AM EDT [facility] Blood Venipuncture / Unknown 04/07/2025 9:10 AM EDT 04/07/2025 9:38 AM EDT Una LundbergD LAB BLOOD ORDERABLES Final R esult [facility]
[address] [place] [address], [place] [phone] * (ABNORMAL) CBC Auto Differential (04/07/2025 9:10 AM EDT) [facility] WBC 8.63 3.40 - 10.80 10*3/mm3 04/07/2025 9:50 AM EDT [facility] RBC 5.23 4.14 - 5.80 10*6/mm3 04/07/2025 9:50 AM EDT [facility] Hemoglobin 14.7 13.0 - 17.7 g/dL 04/07/2025 9:50 AM EDT [facility] Hematocrit 44.8 37.5 - 51.0 % 04/07/2025 9:50 AM EDT [facility] MCV 85.7 79.0 - 97.0 fL 04/07/2025 9:50 AM EDT [facility] MCH 28.1 26.6 - 33.0 pg 04/07/2025 9:50 AM [facility] MCHC 32.8 31.5 - 35.7 g/dL 04/07/2025 9:[facility] RDW 12.8 12.3 - 15.4 % 04/07/2025 9:50 AM [facility] RDW-SD 39.9 37.0 - 54.0 fl 04/07/2025 9:50 AM [facility] MPV 10.8 6.0 - 12.0 fL 04/07/2025 9:[facility] Platelets 149 140 - 450 10*3/mm3 04/07/2025 9:50 AM [facility] Neutrophil % 66.7 42.7 - 76.0 % 04/07/2025 9:50 AM [facility] Lymphocyte % 20.5 19.6 - 45.3 % 04/07/2025 9:50 AM [facility] Monocyte % 9.8 5.0 - 12.0 % 04/07/2025 9:50 AM [facility] Eosinophil % 2.1 0.3 - 6.2 % 04/07/2025 9:50 AM [facility] Basophil % 0.3 0.0 - 1.5 % 04/07/2025 9:50 AM [facility] Immature Grans % 0.6(H) 0.0 - 0.5 % 04/07/2025 9:50 AM [facility] Neutrophils, Absolute 5.75 1.70 - 7.00 10*3/mm3 04/07/2025 9:50 [facility] Lymphocytes, Absolute 1.77 0.70 - 3.10 10*3/mm3 04/07/2025 9:50 [facility] Monocytes, Absolute 0.85 0.10 - 0.90 10*3/mm3 04/07/2025 9:50 [facility] Eosinophils, Absolute 0.18 0.00 - 0.40 10*3/mm3 04/07/2025 9:50 AM EDT [facility] Basophils, Absolute 0.03 0.00 - 0.20 10*3/mm3 04/07/2025 9:50 AM EDT [facility] Immature Grans, Absolute 0.05 0.00 - 0.05 10*3/mm3 04/07/2025 9:50 AM EDT [facility] nRBC 0.0 0.0 - 0.2 /100 WBC 04/07/2025 9:50 AM EDT [facility] Blood Venipuncture / Unknown 04/07/2025 9:10 AM EDT 04/07/2025 9:38 AM EDT Jason Álvarez DO LAB BLOOD ORDERABLES Final Resul t [facility]
[address] [place] [address], * (ABNORMAL) Basic Metabolic Panel (04/07/2025 9:10 AM EDT) Glucose 112(H) 65 - 99 mg/dL 04/07/2025 10:19 AM EDT [facility] BUN 13.1 6.0 - 20.0 mg/dL 04/07/2025 10:19 AM EDT [facility] Creatinine 0.77 0.76 - 1.27 mg/dL 04/07/2025 10:19 AM EDT [facility] Sodium 139 136 - 145 mmol/L 04/07/2025 10:19 AM EDT [facility] Potassium 4.2 3.5 - 5.2 mmol/L 04/07/2025 10:19 AM EDT [facility] Comment:Specimen hemolyzed. Result may be falsely elevated. Chloride 105 98 - 107 mmol/L 04/07/2025 10:19 AM EDT [facility] CO2 24.8 22.0 - 29.0 mmol/L 04/07/2025 10:19 AM EDT [facility] Calcium 8.6 8.6 - 10.5 mg/dL 04/07/2025 10:19 AM EDT [facility] BUN/Creatinine Ratio 17.0 7.0 - 25.0 04/07/2025 10:19 AM EDT [facility] Anion Gap 9.2 5.0 - 15.0 mmol/L 04/07/2025 10:19 AM EDT [facility] eGFR 113.2 >60.0 mL/min/1.7 3 04/07/2025 10:19 AM EDT [facility] Blood Venipuncture / Unknown 04/07/2025 9:10 AM EDT 04/07/2025 9:38 AM EDT Narrative [facility] - 04/07/2025 10:19 AM EDT [...] DO LAB BLOOD ORDERABLES Final Resul t [facility]
[address] [place] [address], * MRI Tibia Fibula Right With & [...] Buenrostro 04/07/2025 9:58 AM EDT Workstation ID: [id number] Narrative 04/07/2025 9:58 AM EDT MRI TIBIA [...] the soft tissues, as before. Procedure Note Hugh Buenrostro MD - 04/07/2025 MRI TIBIA FIBULA RIGHT [...] Buenrostro 04/07/2025 9:58 AM EDT Workstation ID: [id number] us Sushil Dean Jr., MD IM MRI ORDERABLES Mary Beth l Result * Heparin Anti-Xa (04/07/2025 1:42 AM EDT) Heparin Anti-Xa (UFH) 0.38 0.30 - 0.70 IU/ml 04/07/2025 2:14 AM EDT [facility] Blood Venipuncture / Unknown 04/07/2025 1:42 AM EDT 04/07/2025 1:54 AM EDT us Chelsie Turpin [facility] LAB BLOOD ORDERABLES Final R esult [facility]
[address] [place] [address], * Heparin Anti-Xa (04/06/2025 7:16 PM EDT) Pathologist [facility] Heparin Anti-Xa (UFH) 0.33 0.30 - 0.70 IU/ml 04/06/2025 7:50 PM EDT [facility] Blood Venipuncture / Unknown 04/06/2025 7:16 PM EDT 04/06/2025 7:35 PM EDT Cherri Beatty [facility] LAB BLOOD ORDERABLES Final Res ult [facility]
[address] [place] [address], * Potassium (04/06/2025 7:16 PM EDT) [facility] Potassium 4.0 3.5 - 5.2 mmol/L 04/06/2025 7:53 PM EDT [facility] Blood Venipuncture / Unknown 04/06/2025 7:16 PM EDT 04/06/2025 7:35 PM EDT Jason Álvarez DO LAB BLOOD ORDERABLES Final Resul t [facility]
[address] [place] [address], * (ABNORMAL) Heparin Anti-Xa (04/06/2025 12:36 PM EDT) [facility] Heparin Anti-Xa (UFH) 0.24(L) 0.30 - 0.70 IU/ml 04/06/2025 1:23 PM EDT [facility] Blood Venipuncture / Unknown 04/06/2025 12:36 PM EDT 04/06/2025 1:07 PM EDT Una Wheeleroy PharmD LAB BLOOD ORDERABLES Final R esult [facility]
[address] [place] [address], * (ABNORMAL) Heparin Anti-Xa (04/06/2025 3:42 AM EDT) [facility] Heparin Anti-Xa (UFH) 0.25(L) 0.30 - 0.70 IU/ml 04/06/2025 5:30 AM EDT [facility] Blood Venipuncture / Unknown 04/06/2025 3:42 AM EDT 04/06/2025 4:59 AM EDT Chelsie Turpin [facility] LAB BLOOD ORDERABLES Final R esult Performing Organization Address City/[facility]/ZIP Co de Phone Number [facility]
[address] [place] [address], * (ABNORMAL) Basic Metabolic Panel (04/06/2025 3:42 AM EDT) [facility] Glucose 94 65 - 99 mg/dL 04/06/2025 5:59 AM EDT [facility] BUN 12.8 6.0 - 20.0 mg/dL 04/06/2025 5:59 AM EDT [facility] Creatinine 0.80 0.76 - 1.27 mg/dL 04/06/2025 5:59 AM EDT [facility] Sodium 138 136 - 145 mmol/L 04/06/2025 5:59 AM EDT [facility] Potassium 3.6 3.5 - 5.2 mmol/L 04/06/2025 5:59 AM EDT [facility] Chloride 103 98 - 107 mmol/L 04/06/2025 5:59 AM EDT [facility] CO2 24.2 22.0 - 29.0 mmol/L 04/06/2025 5:59 AM EDT [facility] Calcium 8.0(L) 8.6 - 10.5 mg/dL 04/06/2025 5:59 AM EDT [facility] BUN/Creatinine Ratio 16.0 7.0 - 25.0 04/06/2025 5:59 AM EDT [facility] Anion Gap 10.8 5.0 - 15.0 mmol/L 04/06/2025 5:59 AM EDT [facility] eGFR 111.9 >60.0 mL/min/1.7 3 04/06/2025 5:59 AM EDT [facility] Blood Venipuncture / Unknown 04/06/2025 3:42 AM EDT 04/06/2025 5:20 AM EDT [facility] - 04/06/2025 5:59 AM EDT GFR [...] DO LAB BLOOD ORDERABLES Final Resul t [facility]
[address] [id number], * (ABNORMAL) CBC Auto Differential (04/06/2025 3:41 AM EDT) WBC 10.86(H) 3.40 - 10.80 10*3/mm3 04/06/2025 5:04 AM EDT [facility] RBC 5.08 4.14 - 5.80 10*6/mm3 04/06/2025 5:04 AM EDT [facility] Hemoglobin 13.9 13.0 - 17.7 g/dL 04/06/2025 5:04 AM [facility] Hematocrit 43.7 37.5 - 51.0 % 04/06/2025 5:[facility] MCV 86.0 79.0 - 97.0 fL 04/06/2025 5:04 AM [facility] MCH 27.4 26.6 - 33.0 pg 04/06/2025 5:04 AM [facility] MCHC 31.8 31.5 - 35.7 g/dL 04/06/2025 5:04 AM [facility] RDW 12.8 12.3 - 15.4 % 04/06/2025 5:04 AM [facility] RDW-SD 40.0 37.0 - 54.0 fl 04/06/2025 5:04 AM [facility] MPV 11.7 6.0 - 12.0 fL 04/06/2025 5:04 AM [facility] Platelets 115(L) 140 - 450 10*3/mm3 04/06/2025 5:04 AM [facility] Neutrophil % 65.3 42.7 - 76.0 % 04/06/2025 5:04 AM [facility] Lymphocyte % 20.5 19.6 - 45.3 % 04/06/2025 5:04 AM [facility] Monocyte % 11.8 5.0 - 12.0 % 04/06/2025 5:04 AM [facility] Eosinophil % 1.8 0.3 - 6.2 % 04/06/2025 5:04 AM [facility] Basophil % 0.3 0.0 - 1.5 % 04/06/2025 5:04 [address] [facility] Immature Grans % 0.3 0.0 - 0.5 % 04/06/2025 5:04 AM [facility] Neutrophils, Absolute 7.09(H) 1.70 - 7.00 10*3/mm3 04/06/2025 5:04 AM EDT [facility] Lymphocytes, Absolute 2.23 0.70 - 3.10 10*3/mm3 04/06/2025 5:04 AM EDT [facility] Monocytes, Absolute 1.28(H) 0.10 - 0.90 10*3/mm3 04/06/2025 5:04 AM EDT [facility] Eosinophils, Absolute 0.20 0.00 - 0.40 10*3/mm3 04/06/2025 5:04 AM EDT [facility] Basophils, Absolute 0.03 0.00 - 0.20 10*3/mm3 04/06/2025 5:04 AM EDT [facility] Immature Grans, Absolute 0.03 0.00 - 0.05 10*3/mm3 04/06/2025 5:04 AM EDT [facility] nRBC 0.0 0.0 - 0.2 /100 WBC 04/06/2025 5:04 AM EDT [facility] Blood Venipuncture / Unknown 04/06/2025 3:41 AM EDT 04/06/2025 4:58 AM EDT us Jason Álvarez DO LAB BLOOD ORDERABLES Final Resul t Performing Organization Address City/[facility]/ZIP Co de Phone Number [facility]
[address] [place] [address], * Heparin Anti-Xa (04/05/2025 8:43 PM EDT) Heparin Anti-Xa (UFH) 0.38 0.30 - 0.70 IU/ml 04/05/2025 9:09 PM EDT [facility] Blood Venipuncture / Unknown 04/05/2025 8:43 PM EDT 04/05/2025 8:55 PM EDT us Cherri Beatty [facility] LAB BLOOD ORDERABLES Final Res ult [facility]
[address] [place] [address], * CK (04/05/2025 12:15 PM EDT) Pathologist [facility] Creatine Kinase 140 20 - 200 U/L 04/05/2025 1:31 PM EDT [facility] Blood Venipuncture / Unknown 04/05/2025 12:15 PM EDT 04/05/2025 1:03 PM EDT Carlton Mead MD LAB BLOOD ORDERABLES Final R esult [facility]
[address] [place] [address], * (ABNORMAL) Heparin Anti-Xa (04/05/2025 12:15 PM EDT) [facility] Heparin Anti-Xa (UFH) 0.17(L) 0.30 - 0.70 IU/ml 04/05/2025 1:21 PM EDT [facility] Blood Venipuncture / Unknown 04/05/2025 12:15 PM EDT 04/05/2025 1:04 PM EDT Una Perla PharmD LAB BLOOD ORDERABLES Final R esult [facility]
[address] [place] [address], * (ABNORMAL) aPTT (04/05/2025 3:54 AM EDT) Pathologist [facility] PTT 35.3(L) 60.0 - 90.0 seconds 04/05/2025 4:31 AM EDT [facility] Blood Venipuncture / Unknown 04/05/2025 3:54 AM EDT 04/05/2025 4:15 AM EDT Narrative [facility] - 04/05/2025 4:31 AM EDT PTT = The equivalent PTT values for the therapeutic range of heparin levels at 0.3 to 0.5 U/ml are 60 to 70 seconds. Zanbato PharmD LAB BLOOD ORDERABLES Final R esult Performing Organization Address City/[facility]/ZIP Co de Phone Number [facility]
[address] [place] [address], * Heparin Anti-Xa (04/05/2025 3:54 AM EDT) Pathologist [facility] Heparin Anti-Xa (UFH) 0.30 0.30 - 0.70 IU/ml 04/05/2025 4:32 AM EDT [facility] Blood Venipuncture / Unknown 04/05/2025 3:54 AM EDT 04/05/2025 4:15 AM EDT [employer] LAB BLOOD ORDERABLES Final R esult Performing Organization Address City/[facility] Co de Phone Number [facility]
[address] [place] [address], * (ABNORMAL) CBC Auto Differential (04/05/2025 3:54 AM EDT) Pathologist [facility] WBC 11.18(H) 3.40 - 10.80 10*3/mm3 04/05/2025 4:20 AM EDT [facility] RBC 5.00 4.14 - 5.80 10*6/mm3 04/05/2025 4:20 AM EDT [facility] Hemoglobin 13.9 13.0 - 17.7 g/dL 04/05/2025 4:20 AM EDT [facility] Hematocrit 42.4 37.5 - 51.0 % 04/05/2025 4:20 AM EDT [facility] MCV 84.8 79.0 - 97.0 fL 04/05/2025 4:20 AM EDT [facility] MCH 27.8 26.6 - 33.0 pg 04/05/2025 4:20 AM [facility] MCHC 32.8 31.5 - 35.7 g/dL 04/05/2025 4:20 AM [facility] RDW 12.9 12.3 - 15.4 % 04/05/2025 4:20 AM [facility] RDW-SD 39.7 37.0 - 54.0 fl 04/05/2025 4:20 AM [facility] MPV 10.2 6.0 - 12.0 fL 04/05/2025 4:20 AM [facility] Platelets 160 140 - 450 10*3/mm3 04/05/2025 4:20 AM [facility] Neutrophil % 73.5 42.7 - 76.0 % 04/05/2025 4:20 AM [facility] Lymphocyte % 14.0(L) 19.6 - 45.3 % 04/05/2025 4:20 AM [facility] Monocyte % 11.0 5.0 - 12.0 % 04/05/2025 4:20 AM [facility] Eosinophil % 0.8 0.3 - 6.2 % 04/05/2025 4:20 AM [facility] Basophil % 0.3 0.0 - 1.5 % 04/05/2025 4:20 AM [facility] Immature Grans % 0.4 0.0 - 0.5 % 04/05/2025 4:20 AM [facility] Neutrophils, Absolute 8.23(H) 1.70 - 7.00 10*3/mm3 04/05/2025 4:[facility] [address] [facility] Lymphocytes, Absolute 1.56 0.70 - 3.10 10*3/mm3 04/05/2025 4:20 AM [facility] Monocytes, Absolute 1.23(H) 0.10 - 0.90 10*3/mm3 04/05/2025 4:20 AM [facility] Eosinophils, Absolute 0.09 0.00 - 0.40 10*3/mm3 04/05/2025 4:20 AM EDT [facility] Basophils, Absolute 0.03 0.00 - 0.20 10*3/mm3 04/05/2025 4:20 AM EDT [facility] Immature Grans, Absolute 0.04 0.00 - 0.05 10*3/mm3 04/05/2025 4:20 AM EDT [facility] nRBC 0.0 0.0 - 0.2 /100 WBC 04/05/2025 4:20 AM EDT [facility] Blood Venipuncture / Unknown 04/05/2025 3:54 AM EDT 04/05/2025 4:16 AM EDT Una Perla PharmD LAB BLOOD ORDERABLES Final R esult [facility]
[address] [place] [address], * (ABNORMAL) Basic Metabolic Panel (04/05/2025 3:54 AM EDT) Glucose 152(H) 65 - 99 mg/dL 04/05/2025 4:40 AM EDT [facility] BUN 17.3 6.0 - 20.0 mg/dL 04/05/2025 4:40 AM EDT [facility] Creatinine 0.92 0.76 - 1.27 mg/dL 04/05/2025 4:40 AM EDT [facility] Sodium 136 136 - 145 mmol/L 04/05/2025 4:40 AM EDT [facility] Potassium 3.9 3.5 - 5.2 mmol/L 04/05/2025 4:40 AM EDT [facility] Chloride 103 98 - 107 mmol/L 04/05/2025 4:40 AM EDT [facility] CO2 24.0 22.0 - 29.0 mmol/L 04/05/2025 4:40 AM EDT [facility] Calcium 7.8(L) 8.6 - 10.5 mg/dL 04/05/2025 4:40 AM EDT [facility] BUN/Creatinine Ratio 18.8 7.0 - 25.0 04/05/2025 4:40 AM EDT [facility] Anion Gap 9.0 5.0 - 15.0 mmol/L 04/05/2025 4:40 AM EDT [facility] eGFR 105.2 >60.0 mL/min/1.7 3 04/05/2025 4:40 AM EDT [facility] Blood Venipuncture / Unknown 04/05/2025 3:54 AM EDT 04/05/2025 4:15 AM EDT [facility] - 04/05/2025 4:40 AM [...] MD LAB BLOOD ORDERABLES Final Re sult [facility]
[address] [place] [address], * (ABNORMAL) aPTT (04/05/2025 12:18 AM EDT) PTT 33.6(L) 60.0 - 90.0 seconds 04/05/2025 12:53 AM EDT [facility] Blood Venipuncture / Unknown 04/05/2025 12:18 AM EDT 04/05/2025 12:37 AM EDT Narrative [facility] - 04/05/2025 12:53 AM EDT PTT = The equivalent PTT values for the therapeutic range of heparin levels at 0.3 to 0.5 U/ml are 60 to 70 seconds. Una Perla PharmD LAB BLOOD ORDERABLES Final R esult Performing Organization Address City/[facility]/ZIP Co de Phone Number [facility]
[address] [place] [address], * (ABNORMAL) Protime-INR (04/05/2025 12:18 AM EDT) Protime 15.9(H) 12.2 - 15.3 Seconds 04/05/2025 12:53 AM EDT [facility] INR 1.19(H) 0.89 - 1.12 04/05/2025 12:53 AM EDT [facility] Blood Venipuncture / Unknown 04/05/2025 12:18 AM EDT 04/05/2025 12:37 AM EDT Una Perla PharmD LAB BLOOD ORDERABLES Final R esult Performing Organization Address [facility] Co de Phone Number [facility]
[address] [place] [address], * Heparin Anti-Xa (04/05/2025 12:18 AM EDT) Heparin Anti-Xa ([facility]) 0.39 0.30 - 0.70 IU/ml 04/05/2025 12:54 AM EDT [facility] Blood Venipuncture / Unknown 04/05/2025 12:18 AM EDT 04/05/2025 12:37 AM EDT Una Perla PharmD LAB BLOOD ORDERABLES Final R esult [facility]
[address] [place] [address], * MRI Tibia Fibula Right With & [...] MD 04/04/2025 11:00 PM EDT Workstation ID: [id number] Narrative 04/04/2025 11:00 PM EDT MRI TIBIA [...] MD 04/04/2025 11:00 PM EDT Workstation ID: [id number] Leonora Shepherd MD IMG MRI ORDERABLES Final Resu lt * POC Creatinine (04/04/2025 2:49 PM EDT) Creatinine 1.10 0.60 - 1.30 mg/dL 04/07/2025 7:14 PM EDT [facility] Comment:Serial Number: [id number]: [id number] Venous Blood 04/04/2025 2:49 PM EDT 04/07/2025 7:14 PM EDT Jason Álvarez DO POINT OF CARE TEST ORDERABLES Fi nal Result [facility]
[address] [place] [address], * (ABNORMAL) CBC Auto Differential (04/04/2025 2:47 PM EDT) WBC 12.72(H) 3.40 - 10.80 10*3/mm3 04/04/2025 2:56 PM EDT [facility] RBC 5.64 4.14 - 5.80 10*6/mm3 04/04/2025 2:56 PM EDT [facility] Hemoglobin 15.3 13.0 - 17.7 g/dL 04/04/2025 2:56 PM EDT [facility] Hematocrit 47.9 37.5 - 51.0 % 04/04/2025 2:56 PM EDT [facility] MCV 84.9 79.0 - 97.0 fL 04/04/2025 2:56 PM EDT [facility] MCH 27.1 26.6 - 33.0 pg 04/04/2025 2:56 PM EDT [facility] MCHC 31.9 31.5 - 35.7 g/dL 04/04/2025 2:56 PM EDT [facility] RDW 13.1 12.3 - 15.4 % 04/04/2025 2:56 PM EDT [facility] RDW-SD 40.3 37.0 - 54.0 fl 04/04/2025 2:56 PM EDT [facility] MPV 9.4 6.0 - 12.0 fL 04/04/2025 2:56 PM EDT [facility] Platelets 232 140 - 450 10*3/mm3 04/04/2025 2:56 PM EDT [facility] Neutrophil % 74.9 42.7 - 76.0 % 04/04/2025 2:56 PM EDT [facility] Lymphocyte % 13.1(L) 19.6 - 45.3 % 04/04/2025 2:56 PM EDT [facility] Monocyte % 11.2 5.0 - 12.0 % 04/04/2025 2:56 PM EDT [facility] Eosinophil % 0.4 0.3 - 6.2 % 04/04/2025 2:56 PM EDT [facility] Basophil % 0.2 0.0 - 1.5 % 04/04/2025 2:56 PM EDT [facility] Immature Grans % 0.2 0.0 - 0.5 % 04/04/2025 2:56 PM EDT [facility] Neutrophils, Absolute 9.52(H) 1.70 - 7.00 10*3/mm3 04/04/2025 2:56 PM EDT [facility] Lymphocytes, Absolute 1.66 0.70 - 3.10 10*3/mm3 04/04/2025 2:56 PM EDT [facility] Monocytes, Absolute 1.43(H) 0.10 - 0.90 10*3/mm3 04/04/2025 2:56 PM EDT [facility] Eosinophils, Absolute 0.05 0.00 - 0.40 10*3/mm3 04/04/2025 2:56 PM EDT [facility] Basophils, Absolute 0.03 0.00 - 0.20 10*3/mm3 04/04/2025 2:56 PM EDT [facility] [facility] Immature Grans, Absolute 0.03 0.00 - 0.05 10*3/mm3 04/04/2025 2:56 PM EDT [facility] nRBC 0.0 0.0 - 0.2 /100 WBC 04/04/2025 2:56 PM EDT [facility] Blood Venipuncture / Unknown 04/04/2025 2:47 PM EDT 04/04/2025 2:52 PM EDT us Mario Crowley DO LAB BLOOD ORDERABLES Fin al Result [facility]
[address] [place] [address], * (ABNORMAL) C-reactive Protein (04/04/2025 2:47 PM EDT) [facility] C-Reactive Protein 8.57(H) 0.00 - 0.50 mg/dL 04/04/2025 3:26 PM EDT [facility] Blood Venipuncture / Unknown 04/04/2025 2:47 PM EDT 04/04/2025 2:52 PM EDT Mario Crowley LAB BLOOD ORDERABLES Fin al Result Performing Organization Address City/[facility]/ZIP Co de Phone Number [facility]
[address] [place] [address], * (ABNORMAL) Sedimentation Rate (04/04/2025 2:47 PM EDT) [facility] Sed Rate 51(H) 0 - 15 mm/hr 04/04/2025 3:06 PM EDT [facility] Blood Venipuncture / Unknown 04/04/2025 2:47 PM EDT 04/04/2025 2:52 PM EDT Mario Crowley LAB BLOOD ORDERABLES Fin al Result [facility]
[address] [place] [address], * Comprehensive Metabolic Panel (04/04/2025 2:47 PM EDT) [facility] Glucose 90 65 - 99 mg/dL 04/04/2025 3:26 PM EDT [facility] BUN 18.3 6.0 - 20.0 mg/dL 04/04/2025 3:26 PM EDT [facility] Creatinine 0.94 0.76 - 1.27 mg/dL 04/04/2025 3:26 PM EDT [facility] Sodium 136 136 - 145 mmol/L 04/04/2025 3:26 PM EDT [facility] Potassium 3.8 3.5 - 5.2 mmol/L 04/04/2025 3:26 PM T [facility] Chloride 100 98 - 107 mmol/L 04/04/2025 3:26 PM EDT [facility] CO2 25.3 22.0 - 29.0 mmol/L 04/04/2025 3:26 PM EDT [facility] Calcium 8.6 8.6 - 10.5 mg/dL 04/04/2025 3:26 PM EDT [facility] Total Protein 7.3 6.0 - 8.5 g/dL 04/04/2025 3:26 PM T [facility] Albumin 4.1 3.5 - 5.2 g/dL 04/04/2025 3:26 PM T [facility] ALT (SGPT) 26 1 - 41 U/L 04/04/2025 3:26 PM T [facility] AST (SGOT) 25 1 - 40 U/L 04/04/2025 3:26 PM T [facility] Alkaline Phosphatase 106 39 - 117 U/L 04/04/2025 3:26 PM T [facility] Total Bilirubin 1.0 0.0 - 1.2 mg/dL 04/04/2025 3:26 PM EDT [facility] Globulin 3.2 gm/dL 04/04/2025 3:26 PM T [facility] Comment:Calculated Result A/G Ratio 1.3 g/dL 04/04/2025 3:26 PM T [facility] BUN/Creatinine Ratio 19.5 7.0 - 25.0 04/04/2025 3:26 PM [facility] Anion Gap 10.7 5.0 - 15.0 mmol/L 04/04/2025 3:26 PM T [facility] eGFR 102.5 >60.0 mL/min/1.7 3 04/04/2025 3:26 PM EDT [facility] Blood Venipuncture / Unknown 04/04/2025 2:47 PM EDT 04/04/2025 2:52 PM EDT Narrative [facility] - 04/04/2025 3:26 PM EDT [...] factor Mario Crowley DO LAB BLOOD ORDERABLES [facility] al Result [facility]
[address] [place] [address], documented in this encounter Visit Diagnoses Diagnosis [...] Scheduled, First dose (after last modification) on [facility] 04/10/25 at 1045, Tablet may be crushed [...] 24 Hours, First dose on 04/05/25 at 1300, For 1 day, Caution: Look [...] 20 mg, Oral, Daily, First dose on 04/05/25 at 0900 Given 04/11/2025 10:01 AM EDT [...] 04/05/2025 3:33 PM EDT 2,000 Units heparin 57175 units/250 mL (100 units/mL) in 0.45 % [...] ADS Override Pull Starting on Mon04/07/25 at 2212, For 1 dose, Created by [...] BPA Driven Protocol [facility] Electrolyte Replacement Protocol Algorithm to [...] Daily PRN, Constipation, Starting on Mon04/04/25 at 2008, Start bowel management regimen if patient has [...] Every 24 Hours Scheduled, First dose on Mon04/05/25 at 0900, Hold for SBP less than [...] Minutes, Every 12 Hours, First dose on Mon04/05/25 at 0800, For 7 days, Indications: Bone [...] juice. 2026 (Given - Provider: Alberto Dillon, LU) 2030 (Given - Provider: Alberto Dillon RN) budesonide-formoterol (SYMBICORT) 160-4.5 MCG/ACT inhaler 2 puff 2 puff, Inhalation, 2 Times Daily - RT, First dose on Mon04/06/25 at 1345, Include Respiratory Treatment Education (SP) Shake well. Rinse mouth after use, do not swallow water. Send aerosols to pharmacy in ziplock bag for proper disposal. 0831 (Given - Provider: Amber Salazar, HYDRAULIC OPERATOR)1943 (Given - Provider: Anahy Marcelino, HYDRAULIC OPERATOR)2129 (Canceled Entry - Provider: Anahy Marcelino, HYDRAULIC OPERATOR - Comment: previously given) 0837 (Given - Provider: Amber Salazar, HYDRAULIC OPERATOR)2006 (Given - Provider: Loree Reese, HYDRAULIC OPERATOR)2129 (Canceled Entry - Provider: Loree Reese RRT) [...] Hart RN)2026 (Given - Provider: Alberto Dillon, LU) DAPTOmycin (CUBICIN) 800 mg in sodium chloride 0.9 % 50 mL IVPB 800 mg (rounded from 790.4 mg = 8 mg/kg 98.8 kg Adjusted weight), Intravenous, at 100 mL/hr, Administer over 30 Minutes, Every 24 Hours, First dose (after last reorder) on 04/06/25 at 1000, For 10 days, Caution: Look alike/sound alike drug alert. Refrigerate. Do not shake., Reason for Therapy: Other, Indication for Therapy: cellulitis, Indications: Skin and Soft Tissue Infection 0907 (New Bag - Provider: Shirley Hart RN) 09 (New Bag - Provider: Shirley Hart, RN) 1002 (New Bag - Provider: Marguerite Wakefield, RN) ethyl alcohol 62 % 2 each 2 each (2 Swab), Nasal, Once, On 04/07/25 at 1646, For 1 dose, Administer 15-60 [...] Take with food if GI upset occurs. 906 (Given - Provider: Shirley Hart RN)2026 (Given - Provider: Alberto Dillon, RN) 09 (Given - Provider: Shirley Hart RN)2030 (Given - Provider: Alberto Dillon RN) 100 (Given - Provider: Marguerite Wakefield, RN) furosemide (LASIX) tablet 20 mg 20 mg, Oral, Daily, First dose on 04/05/25 at 0900 09 (Given - Provider: Shirley Hart RN) 09 (Given - Provider: Shirley Hart, LU) 100 (Given - Provider: Marguerite Wakefield, RN) hydroCHLOROthiazide tablet 12.5 mg 12.5 mg, Oral, Daily, First dose on 04/05/25 at 0900, Caution: Look alike/sound alike drug alert 905 (Given - Provider: Shirley Hart RN) 09 [...] at 2102 0907 (Given - Provider: Shirley Hart RN)2026 (Given - Provider: Alberto Dillon RN) 0906 (Given - Provider: Shirley Hart RN)2030 (Given - Provider: Alberto Dillon RN) 100 (Given - Provider: Marguerite Wakefield, RN) sertraline (ZOLOFT) tablet 100 mg 100 mg, Oral, Nightly, First dose on Mon04/04/25 at 2330 2026 (Given - Provider: Alberto Dillon RN) 2030 (Given - Provider: Alberto Dillon RN) sodium chloride 0.9 % flush 10 mL 10 mL, Intravenous, Every 12 Hours Scheduled, First dose on Mon04/04/25 at 2100 1007 (Given - Provider: Shirley Hart RN)2026 (Given - Provider: Alberto Dillon RN) 0907 (Given - Provider: Shirley Hart RN)2100 (Canceled Entry - Provider: Alberto Dillon RN) 1004 (Given - Provider: Marguerite Wakefield, RN) sodium chloride 0.9 % flush 10 mL 10 mL, Intravenous, Every 12 Hours Scheduled, First dose on Mon04/09/25 at 1400 1439 (Given - Provider: Shirley Hart RN)2100 (Canceled Entry - Provider: Alberto Dillon RN) 0908 (Given - Provider: Shirley Hart RN)2100 (Canceled Entry - Provider: Alberto Dillon RN) 1003 (Given - Provider: Marguerite Wakefield RN) tamsulosin (FLOMAX) 24 hr capsule 0.4 [...] Continuous Medication Order 04/09/2025 04/10/2025 04/11/2025 heparin 63982 units/250 mL (100 units/mL) in 0.45 % [...] - Provider: Shirley Hart RN) acetaminophen (TYLENOL) tablet 500 mg(Linked Group 1) [...] = Pain Score of 7-10, CPOT 5-8 3 (Given - Provider: Alberto Dillon RN) 0906 (Given - Provider: Shirley Hart, RN)1508 (Given - Provider: Shirley Hart, RN) [...] = Pain Score of 7-10, CPOT 5-8 7913 (Given - Provider: Bob Rosenberg RN)0614 (Given - Provider: Bob Rosenberg, LU)1006 (Given - Provider: Shirley Hart, RN)1220 (Given - Provider: Shirley Hart, RN)1438 (Given - Provider: Shirley Hart, RN)1628 (Given - Provider: Shirley Hart, RN)1815 (Given - Provider: Shirley Hart, RN)2033 (Given - Provider: Alberto Dillon, RN)2245 (Given - Provider: Alberto Dillon, RN) 0109 (Given - Provider: Alberto Dillon RN)0655 (Given - Provider: Alberto Dillon RN)1414 (Given - Provider: Shirley Hart, LU)2124 (Given - Provider: Alberto Dillon RN) 1003 (Given - Provider: Marguerite Wakefield [...] = Pain Score of 7-10, CPOT 5-8 2124 (Given - Provider: Alberto Dillon, RN) 0313 (Given - Provider: Alberto Dillon, RN)0906 (Given - Provider: Shirley Hart, RN)1508 (Given - Provider: Shirley Hart, RN)2031 (Given - Provider: Alberto Dillon, RN) Phosphorus Replacement - Follow Nurse / BPA Driven Protocol [facility] Electrolyte Replacement Protocol Algorithm to [...] BPA Driven Protocol [facility] Electrolyte Replacement Protocol Algorithm to [...] documented as of this encounter Care Teams Crew Manager Relationship Specialty Start Date End Date Provider, [place] [address] PCP - General 05/09/23 documented as of this encounter
--- OUTSIDE RECORDS SUMMARY | 2025-04-07 17:00 | XMS_ITS | Encounter Summary ---
Author Organization [facility] Address [address] [place] [address] Care Team Providers Care Drywall Applicator Name Role Phone Provider, No Known Primary Care Provider Unavail able Reason for Visit * Reason Comments Leg Swelling * Auth/Cert Specialty Diagnoses / Procedures Referred By Contac t Referred To Contact Diagnoses Right BKA infection Referral ID Status Reason Start Date Expiration Date Visits Re quested Visits Authorized [id number] 1 1 Encounter Details Date Type Department Care Team (Late st Contact Info) Description 04/07/2025 6:00 PM EDT - 04/07/2025 6:52 PM EDT Surgery [facility] OR [address] [place] [address] Sushil Dean Jr., MD [address] [place] [address] [address] [id number] LEG DEBRIDEMENT, IRRIGATION Social History Tobacco Use Types Packs/Day Years Used Date Smoking Tobacco: Never Smokeless Tobacco: Never Tobacco Cessation:Counseling Given: Not Answered Alcohol Use Standard Drinks/Week Comments Not Currently 0 (1 standard drink = 0.6 oz pur e alcohol) [facility] Utilities Answer Date Recorded In the past 12 months has [employer] electric, gas, oil, or water company threatened [...] or training? Not on file Preferred Language Bolivian 04/07/2025 Sex and Gender Information Value Date [...] 2:25 PM EDT Cherri Grimm RN * [place] Suicide Severity Rating Scale (Screener/Recent Self-Report) Question [...] from the original note were not included. [facility] Medicine Services DISCHARGE SUMMARY Patient [...] Date/Time Wound Culture - Swab, Leg, Right [[id number]] (Abnormal) (Susceptibility) Collected: 04/07/252106 Lab Status: Final [...] Units Date/Time FL C Arm During Surgery [[id number]] Resulted: 04/07/252137 Updated: 04/07/252137 Narrative: This procedure was auto-finalized with no dictation required. MRI Tibia Fibula Right With & Without Contrast [[id number]] Collected: 04/07/25 0938 Updated: 04/07/25 1001 Narrative: [...] Buenrostro 04/07/2025 9:58 AM EDT Workstation ID: [id number] MRI Tibia Fibula Right With & Without Contrast [[id number]] Collected: 04/04/252256 Updated: 04/04/252302 Narrative: MRI TIBIA [...] represent a small area of phlegmonous change ([id number] image 10) measuring approximately 1.6 cm which [...] MD 04/04/2025 11:00 PM EDT Workstation ID: [id number] Pending Labs Order Current Status Fungus Culture [...] Male) Date of 1980 Social Security Number [id number] [place] [address] [place] [address] Gnosticism Unknown Marital Status Unknown Admission Date 04/04/2025 Admission Type Emergency Admitting Provider Jadyn Richardson DO Attending Provider Jadyn Richardson DO Department, Room/Bed [facility] 5G, S565/1 Discharge Date Discharge Disposition Discharge Destination Attending Provider: Jadyn Richardson DO Allergies: Ceftin [Cefuroxime], Keflex [Cephalexin], Latex Isolation: None Infection: MRSA (05/11/23) Code Status: CPR Ht: 180.3 cm (71 ) Wt: 134 kg (295 lb) Admission Cmt: None 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 Insurance as of 04/04/2025 Primary Coverage Payor Plan Insurance Group Employer/Plan Group [place] [id number] Payor Plan Address Payor Plan Phone Number Payor Plan Fax Number Effective Dates [employer] [address] [address] 08/10/2023 - None Entered [facility] [address] Subscriber Name Subscriber Date Member ID WON DENNIS 1980 [id number] Emergency Contacts Location Analyst (Rel.) Home Phone Work Phone Mobile Phone Avril Dennis (Spouse) -- -- [phone] Robert Hackett (Relative) -- -- [phone] [facility] 5G [address] [facility] [address] Patient: ROOM: [facility] Won Dennis [address] [facility] [place] [address] : 1980 SSN: [id number] Sex: M PCP: Provider, No Known Emergency Contact Information Name Relation Home Work Mobile Avril Dennis Spouse [phone] Other Contacts Name Relation Home Work Mobile Robert Hackett Relative [phone] INSURANCE PAYOR PLAN [employer] # SUBSCRIBER ID Primary: Secondary: MEDICARE [place] [id number] Admitting Diagnosis: 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 Rubens oTrres Reason for consult? Other (see comments) Comments: outpatient orders Authorizing Provider:Carlton Mead MD Authorizing Provider's Order Entered By: Carlton Mead MD 04/09/2025 9:46 PM Electronically signed by: Carlton Mead MD 04/09/2025 9:46 PM Carlton Mead MD Physician Infectious Disease Progress Notes Signed Date of Service: 04/10/25737 Creation Time: 04/10/25737 Signed Expand All Collapse All INFECTIOUS DISEASE Progress Note Won Dennis 1980 [id number] Date of Consult: 04/10/2025 Admission Date: 04/04/2025 [...] which prompted him to seek treatment at [facility]. He is known to Dr. Dean. [...] wound 05/09/25. HDS, on Heparin gtt. Currently [facility] has been asked to manage the [...] tablet 5 mg, 5 mg, Oral, Q12H, Sushli Dean Jr., MD atorvastatin (LIPITOR) tablet 40 [...] Jr., MD, 20 mg at 04/09/25906 heparin 16148 units/250 mL (100 units/mL) in 0.45 % [...] dose vancomycin Status: Discontinued Ordering Provider: Leonora Shehperd MD Not Applicable Continuous PRN 04/04/25200404/05/25 1207 04/04/25 1943 vancomycin 2750 mg/500 mL 0.9% NS IVPB ([facility]) Ordering Provider: Mraio Crowley, DO 20 mg/kg ?? 134 kg [...] Units Date/Time FL C Arm During Surgery [[id number]] Resulted: 04/07/252137 Updated: 04/07/252137 Narrative: This procedure was auto-finalized with no dictation required. MRI Tibia Fibula Right With & Without Contrast [[id number]] Collected: 04/07/2538 Updated: 04/07/25 1001 Narrative: MRI [...] Buenrostro 04/07/2025 9:58 AM EDT Workstation ID: [id number] Impression: Recurrent Right BKA stump abscess/cellulitis- this [...] discussed his disposition with the pharmacist at [facility] today. I will sign off Outpatient orders: 1. Outpatient intravenous antibiotic therapy: Daptomycin 800 mg IV daily to be supplied by [facility] 2. Home health to perform weekly [...] 04/10/251323 Creation Time: 04/10/251323 Signed Expand All [facility] Medicine Services PROGRESS NOTE Patient Name: [...] Date/Time Wound Culture - Swab, Leg, Right [[id number]] (Abnormal) (Susceptibility) Collected: 04/07/252106 Lab Status: Final [...] Row Name 04/06/25 1143 Sit-Stand Transfer Sit-Stand [place] (Transfers) modified independence - Comment, (Sit-Stand Transfer) Pt stood from recliner. Not holding onto walker, pt able to pull his pants up while balancing on his one leg. -LM Row Name 04/06/25 1143 Gait/Stairs (Locomotion) [place] Level (Gait) modified independence - Distance in [...] Motion bilateral lower extremity ROM WFL -LM [facility] Name 04/06/25 1145 Strength Comprehensive (MMT) General Manual Muscle Testing (MMT) Assessment no strength deficits identified BLEs -LM [facility] Name 04/06/25 1145 Balance Balance Assessment sitting [...] Physical Therapist Goals/Plan No documentation. Clinical Impression [facility] 04/06/25 1146 Pain Pretreatment Pain Rating 0/10 - no pain -LM Posttreatment Pain Rating 0/10 - no pain -LM [facility] 04/06/25 1146 Plan of Care Review Plan of Care Reviewed With patient -LM Outcome Evaluation PT evaluation completed. Pt demonstrated independence with all mobility including ambulating 100 feet using rw - no unsteadiness noted. Pt reports he feels at baseline and doesn't think he needs skilled PT while here. Recommend home at d/c. PT signing off. -LM [facility] Name 04/06/25 1146 Therapy Assessment/Plan (PT) Criteria for Skilled Interventions Met (PT) no;no problems identified which require skilled intervention -LM Therapy Frequency (PT) evaluation only -LM Predicted Duration of Therapy Intervention (PT) Eval Only -LM [facility] Name 04/06/25 1146 Vital Signs Pretreatment Heart Rate (beats/min) 86 -LM Posttreatment Heart Rate (beats/min) 96 -LM Pre SpO2 (%) 95 -LM O2 Delivery Pre Treatment room air -LM Post SpO2 (%) 96 -LM O2 Delivery Post Treatment room air -LM Pre Patient Position Sitting -LM Post Patient Position Sitting -LM [facility] Name 04/06/25 1146 Positioning and Restraints Pre-Treatment [...] Nurse Physical Therapy Education Title: PT OT HOSPITAL ACCOUNT MANAGER Therapies (Done) Topic: Physical Therapy (Done) Point: Mobility training (Done) Learning Progress Summary Patient Acceptance, E, VU,DU by at 04/06/2025 1147 Point: Precautions (Done) Learning Progress Summary Patient Acceptance, E, VU,DU by at 04/06/2025 1147 User Cabrera Initials Effective Dates Name Provider Type [facility] 01/24/25 - Susan Cavazos, PT Physical Therapist [...] Description Service Date Service Provider Modifiers Qty [id number] PT EVAL LOW COMPLEXITY 3 04/06/2025 Susan [...] mg Daily 04/05/2025 -- Route: Oral heparin 27925 units/250 mL (100 units/mL) in 0.45 % [...] [facility] [address], [address] [facility], [address] Please schedule at [phone] VONDA Garcia 04/11/25 08:32 EDT Cosigned by Sushil Dean Jr., MD at 04/19/2025 10:33 AM EDT Associated attestation - Sushil Dean Jr., MD - 04/19/2025 10:33 AM EDT I have reviewed this documentation and agree. * Rosario Hill APRN - 04/10/2025 1:24 PM EDT Images from the original note were not included. [facility] Medicine Services PROGRESS NOTE Patient [...] Date/Time Wound Culture - Swab, Leg, Right [[id number]] (Abnormal) (Susceptibility) Collected: 04/07/252106 Lab Status: Final [...] mg Daily 04/05/2025 -- Route: Oral heparin 25415 units/250 mL (100 units/mL) in 0.45 % [...] [facility] [address], [address] [facility], [address] Please schedule at [phone] VONDA Garcia 04/10/25 09:01 EDT Cosigned by Sushil Dean Jr., MD at 04/19/2025 10:33 AM EDT Associated attestation - Sushil Dean Jr., MD - 04/19/2025 10:33 AM EDT I have reviewed this documentation and agree. * Carlton Mead MD - 04/10/2025 7:38 AM EDT Images from the original note were not included. INFECTIOUS DISEASE Progress Note Won Dennis 1980 [id number] Date of Consult: 04/10/2025 Admission Date: 04/04/2025 [...] which prompted him to seek treatment at [facility]. He is known to Dr. Dean. [...] wound 05/09/25. HDS, on Heparin gtt. Currently [facility] has been asked to manage the [...] IRRIGATION; Surgeon: Sushil Dean Jr., MD; Location: [facility] OR; Service: Orthopedics; Laterality: Right; PLACEMENT OF WOUND VAC Right 04/07/2025 Procedure: WOUND VACUUM ASSISTED CLOSURE; Surgeon: Sushil Dean Jr., MD; Location: [facility] OR; Service: Orthopedics; Laterality: Right; WOUND CLOSURE [...] Jr., MD, 20 mg at 04/09/25906 heparin 82933 units/250 mL (100 units/mL) in 0.45 % [...] Driven Protocol, , Not Applicable, PRN, Sushil Daen Jr., MD saccharomyces boulardii (FLORASTOR) capsule 250 [...] Units Date/Time FL C Arm During Surgery [[id number]] Resulted: 04/07/252137 Updated: 04/07/252137 Narrative: This procedure was auto-finalized with no dictation required. MRI Tibia Fibula Right With & Without Contrast [[id number]] Collected: 04/07/25937 Updated: 04/07/25 100 Narrative: MRI [...] Buenrostro 04/07/2025 9:58 AM EDT Workstation ID: [id number] Impression: Recurrent Right BKA stump abscess/cellulitis- this [...] discussed his disposition with the pharmacist at [facility] today. I will sign off Outpatient orders: 1. Outpatient intravenous antibiotic therapy: Daptomycin 800 mg IV daily to be supplied by [facility] 2. Home health to perform weekly [...] MD 04/10/2025 07:38 EDT * Larisa Hamilton [facility] - 04/10/2025 7:17 AM EDT Pharmacy [...] from the original note were not included. [facility] Medicine Services PROGRESS NOTE Patient [...] Date/Time Wound Culture - Swab, Leg, Right [[id number]] (Abnormal) Collected: 04/07/252106 Lab Status: Preliminary result [...] Patient Jason Álvarez DO 04/09/25 * Larisa Hmailton [facility] - 04/09/2025 11:36 AM EDT Pharmacy [...] -- Admin Instructions: Open Order & Select [facility] Electrolyte Replacement Protocol Algorithm to [...] mg Daily 04/05/2025 -- Route: Oral heparin 04211 units/250 mL (100 units/mL) in 0.45 % [...] -- Admin Instructions: Open Order & Select [facility] Electrolyte Replacement Protocol Algorithm to [...] [facility] [address], [address] [facility], [address] Please schedule at [phone] VONDA Garcia 04/09/25 09:18 EDT Cosigned by Sushil Dean Jr., MD at 04/19/2025 10:33 AM EDT Associated attestation - Sushil Dean Jr., MD - 04/19/2025 10:33 AM EDT I have reviewed this documentation and agree. * Carlton Mead MD - 04/09/2025 8:25 AM EDT Images from the original note were not included. INFECTIOUS DISEASE Progress Note Won Dennis 1980 [id number] Date of Consult: 04/09/2025 Admission Date: 04/04/2025 [...] which prompted him to seek treatment at [facility]. He is known to Dr. Dean. [...] wound 05/09/25. HDS, on Heparin gtt. Currently [facility] has been asked to manage the [...] Sushil Dean Jr., MD; Location: [facility]; Service: Orthopedics; Laterality: Right; PLACEMENT OF WOUND VAC Right 04/07/2025 Procedure: WOUND VACUUM ASSISTED CLOSURE; Surgeon: Sushil Dean Jr., MD; Location: [facility] OR; Service: Orthopedics; Laterality: Right; History reviewed. [...] MD, 20 mg at 04/08/25 0800 heparin 61250 units/250 mL (100 units/mL) in 0.45 % [...] Units Date/Time FL C Arm During Surgery [[id number]] Resulted: 04/07/252137 Updated: 04/07/252137 Narrative: This procedure was auto-finalized with no dictation required. MRI Tibia Fibula Right With & Without Contrast [[id number]] Collected: 04/07/25 0938 Updated: 04/07/25 1001 Narrative: [...] Chitra 04/07/2025 9:58 AM EDT Workstation ID: [id number] Impression: Recurrent Right BKA stump abscess/cellulitis- this [...] from the original note were not included. [facility] Medicine Services PROGRESS NOTE Patient [...] Buenrostro 04/07/2025 9:58 AM EDT Workstation ID: [id number] I have personally reviewed the therapy plans: [...] Jason Álvarez, DO 04/08/25 * Hamilton, Larisa, [facility] - 04/08/2025 11:48 AM EDT Pharmacy [...] -- Admin Instructions: Open Order & Select [facility] Electrolyte Replacement Protocol Algorithm to [...] mg Daily 04/05/2025 -- Route: Oral heparin 39858 units/250 mL (100 units/mL) in 0.45 % [...] INFECTIOUS DISEASE Progress Note Won Dennis 1980 [id number] Date of Consult: 04/08/2025 Admission Date: 04/04/2025 [...] which prompted him to seek treatment at [facility]. He is known to Dr. Dean. [...] wound 05/09/25. HDS, on Heparin gtt. Currently [facility] has been asked to manage the [...] IRRIGATION; Surgeon: Sushil Dean Jr., MD; Location: [facility] OR; Service: Orthopedics; Laterality: Right; PLACEMENT OF WOUND VAC Right 04/07/2025 Procedure: WOUND VACUUM ASSISTED CLOSURE; Surgeon: Sushil Dean Jr., MD; Location: [facility] OR; Service: Orthopedics; Laterality: Right; History reviewed. [...] Oral, Q6H PRN, 500 mg at 04/06/25 8784 OR acetaminophen (TYLENOL) 160 MG/5ML oral solution [...] Jr., MD, 20 mg at 04/07/25950 heparin 64275 units/250 mL (100 units/mL) in 0.45 % [...] 10 mg, 10 mg, Oral, Nightly, Sushil Daen Jr., MD, 10mg at 04/06/252101 Pharmacy to [...] vancomycin 2750 mg/500 mL 0.9% NS IVPB ([facility]) Ordering Provider: Mario Crowley, DO [...] Units Date/Time FL C Arm During Surgery [[id number]] Resulted: 04/07/252137 Updated: 04/07/252137 Narrative: This procedure was auto-finalized with no dictation required. MRI Tibia Fibula Right With & Without Contrast [[id number]] Collected: 04/07/25 0938 Updated: 04/07/25 1001 Narrative: [...] Buenrostro 04/07/2025 9:58 AM EDT Workstation ID: [id number] Impression: 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 (Treated by ID in [place] Dr. Harris). Dr. Torres treated him with [...] from the original note were not included. [facility] Medicine Services PROGRESS NOTE Patient [...] Buenrostro 04/07/2025 9:58 AM EDT Workstation ID: [id number] I have personally reviewed the therapy plans: [...] Jason DO Preeti 04/07/25 * Larisa Hamilton, [facility] - 04/07/2025 11:56 AM EDT Pharmacy [...] INFECTIOUS DISEASE Progress Note Won Dennis 1980 [id number] Date of Consult: 04/07/2025 Admission Date: 04/04/2025 [...] which prompted him to seek treatment at [facility]. He is known to Dr. Dean. [...] wound 05/09/25. HDS, on Heparin gtt. Currently [facility] has been asked to manage the [...] MD, 20 mg at 04/06/25 0900 heparin 56386 units/250 mL (100 units/mL) in 0.45 % NaCl infusion, 18 Units/kg/hr, Intravenous, Titrated, Cherri Beatty, [facility], Last Rate: 24.1 mL/hr at 04/07/258, [...] With & Without Contrast - In process [[id number]] Resulted: 04/07/25828 Updated: 04/07/25828 This result has not been signed. Information might be incomplete. MRI Tibia Fibula Right With & Without Contrast [[id number]] Collected: 04/04/252256 Updated: 04/04/253 Narrative: MRI TIBIA [...] represent a small area of phlegmonous change ([id number] image 10) measuring approximately 1.6 cm which [...] MD 04/04/2025 11:00 PM EDT Workstation ID: [id number] Impression: 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 (Treated by ID in [place] Dr. Harris). Dr. Torres treated him with [...] -- Admin Instructions: Open Order & Select [facility] Electrolyte Replacement Protocol Algorithm to [...] mg Daily 04/05/2025 -- Route: Oral heparin 46734 units/250 mL (100 units/mL) in 0.45 % [...] -- Admin Instructions: Open Order & Select [facility] Electrolyte Replacement Protocol Algorithm to [...] MD 04/07/25 06:07 EDT * Cherri Beatty [facility] - 04/06/2025 1:47 PM EDT Pharmacy [...] from the original note were not included. [facility] Medicine Services PROGRESS NOTE Patient [...] MD 04/04/2025 11:00 PM EDT Workstation ID: [id number] I have personally reviewed the therapy plans: [...] mg Daily 04/05/2025 -- Route: Oral heparin 67339 units/250 mL (100 units/mL) in 0.45 % [...] -- Admin Instructions: Open Order & Select [facility] Electrolyte Replacement Protocol Algorithm to [...] -- Admin Instructions: Open Order & Select [facility] Electrolyte Replacement Protocol Algorithm to [...] INFECTIOUS DISEASE follow up. Won Dennis 1980 [id number] Date of Consult: 04/06/2025 Admission Date: 04/04/2025 [...] which prompted him to seek treatment at [facility]. He is known to Dr. Dean. [...] wound 05/09/25. HDS, on Heparin gtt. Currently [facility] has been asked to manage the [...] MD, 20 mg at 04/06/25 0900 heparin 48495 units/250 mL (100 units/mL) in 0.45 % NaCl infusion, 18 Units/kg/hr, Intravenous, Titrated, Cherri Beatty [facility], Last Rate: 24.1 mL/hr at 04/06/25 [...] , Not Applicable, PRN, Leonoar Shepherd MD saccharomyces boulardii (FLORASTOR) capsule 250 [...] Tibia Fibula Right With & Without Contrast [[id number]] Collected: 04/04/252256 Updated: 04/04/252302 Narrative: MRI TIBIA [...] MD 04/04/2025 11:00 PM EDT Workstation ID: [id number] Impression: 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 (Treated by ID in [place] Dr. Harris). Dr. Torres treated him with [...] from the original note were not included. [facility] Medicine Services PROGRESS NOTE Patient [...] MD 04/04/2025 11:00 PM EDT Workstation ID: [id number] I have personally reviewed the therapy plans: [...] from the original note were not included. [facility] Medicine Services HISTORY AND PHYSICAL [...] MD 04/04/2025 11:00 PM EDT Workstation ID: [id number] Assessment & Plan Assessment & Plan Won [...] 4FR PICC placed by Rhoda Bonner RN [facility], tip verified by 3CG see LDA. 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 male admitted to [facility] [place] with Right BKA [...] was evaluated in the emergency department in [place], was discharged with instructions for follow-up. He [...] tablet by mouth Daily. 04/03/2025 Morning Lactobacillus-Inulin ([facility] Digestive [facility]) capsule Take 200 mg by mouth Daily. [...] MD 04/04/2025 11:00 PM EDT Workstation ID: [id number] Assessment: Right BKA infection 44-year-old male with [...] DISEASE CONSULT/INITIAL HOSPITAL VISIT Won Dennis 1980 [id number] Date of Consult: 04/05/2025 Admission Date: 04/04/2025 [...] which prompted him to seek treatment at [facility]. He is known to Dr. Dean. [...] wound 05/09/25. HDS, on Heparin gtt. Currently [facility] has been asked to manage the [...] Leonora Shepherd MD, 40 mg at 04/04/25 9433 sennosides-docusate (PERICOLACE) 8.6-50 MG per tablet 2 [...] MD, 20 mg at 04/05/25 09 heparin 42985 units/250 mL (100 units/mL) in 0.45 % [...] Tibia Fibula Right With & Without Contrast [[id number]] Collected: 04/04/252256 Updated: 04/04/252302 Narrative: MRI TIBIA [...] represent a small area of phlegmonous change ([id number] image 10) measuring approximately 1.6 cm which [...] MD 04/04/2025 11:00 PM EDT Workstation ID: [id number] Impression: 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 (Treated by ID in [place] Dr. Harris). Dr. Torres treated him with [...] - 04/08/2025 3:51 PM EDT [facility] OPERATIVE REPORT PATIENT NAME: Won Dennis DATE OF : 1980 PREOP DIAGNOSIS: Right Right below-knee amputation infection POSTOP DIAGNOSIS: Same. PROCEDURE: Right Right 24825: Secondary closure below-knee amputation SURGEON: Sushil Dean MD OPERATIVE TEAM: Dough Molder: Susi Grullon RN Scrub Person: Mary Paredes Scrub Person Extra: Hortencia Toribio Other: Katt Gotti RN; Charis Neville RN ANESTHETIST: Anesthesiologist: Ulises Hoffman MD SAMPLE HAND: Stan Casillas CRNA Student Nurse Glost Tile Shader: Karol Albert SRNA ANESTHESIA: Choice ESTIMATED BLOOD [...] EDT [facility], [place] [address] OPERATIVE REPORT PATIENT NAME: Won Dennis DATE OF : 1980 PREOP DIAGNOSIS: Right Right below knee amputation stump infection POSTOP DIAGNOSIS: Same. PROCEDURE: Right Right 32265: Incision and drainage of surgical site infection 43965: Debridement of skin, subcutaneous tissue, muscle 73653: Wound vacuum-assisted closure SURGEON: Sushil Dean MD OPERATIVE TEAM: Dough Molder: Anum Sanchez RN Scrub Person: Hortencia Toribio; Gerald Ivey DAIRY FARM WORKER: Anesthesiologist: Luci Alonso DO ANESTHESIA: General [...] ago swellling of the area. seen at [facility] yesterday for CT and US, here [...] this chart in the absence of a underwriting service representative. No orders to display RADIOLOGY: [x] Radiologist's [...] is discharging home with outpatient infusion at [facility]. He has an appointment with [facility] at 8:00 am tomorrow. [...] with KELLEE and given themhis Medicare number [id number], she sent it to Admission. DEBRA spoke with Kerri, with [facility], and explained that he had Medicare A and B. However, it will not cover home infusion. It will be $64.00 a day out of packet. Patients can go to the Infusion center at [facility], and it will cover the cost as an outpatient. He will need to go there every day for infusion. They will be able to do the patients' PICC line dressing changes and lab work. DEBRA called [facility] Outpatient infusion center they can accept patient and start him. He is known for their facility. The Facility will need to run it through his insurance first. CM faxed the orders over to [facility] at [phone]. CM will follow up with them tomorrow at [facility] to make sure they [...] 04/09/2025 2:51 PM EDT Continued Stay Note [facility] Patient Name: Won Dennis Today's Date: 04/09/2025 Admit Date: 04/04/2025 Plan: Home Discharge Plan Row Name 04/09/25 1311 Plan Plan Home Patient/Family in Agreement with Plan yes Plan Comments CM spoke with patient at bedside today. Wheelchair from [employer] is at bedside. Patient getting PICC line [...] note were not included. 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 Patient lives with and his 5 kids in [place]. 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 He has walker, cane, shower chair, and crutches. He requested a wheelchair for home. CM will order wheelchair through [facility]. He is not current with home health services. PCP is Dr. Jordan. Insurance is [facility] Medicaid [place]. Patient discharge plan is home with priavte transport. CM will follow for any discharge needs. Final Discharge Disposition Code 01 - home or self-care Continued Care and Services - Admitted Since 04/04/2025 No active coordination exists. Demographic Summary Row Name 04/07/25 1143 General Information Arrived From hospital Preferred Language Bolivian Functional Status Row Name 04/07/25 1143 Functional [...] (04/11/2025 3:40 AM EDT) [facility] WBC 7.87 3.40 - 10.80 10*3/mm3 04/11/2025 4:02 AM EDT [facility] RBC 4.70 4.14 - 5.80 10*6/mm3 04/11/2025 4:02 AM EDT [facility] Hemoglobin 12.8(L) 13.0 - 17.7 g/dL 04/11/2025 4:02 AM [facility] Hematocrit 40.5 37.5 - 51.0 % 04/11/2025 4:02 AM [facility] MCV 86.2 79.0 - 97.0 fL 04/11/2025 4:02 AM [facility] MCH 27.2 26.6 - 33.0 pg 04/11/2025 4:02 AM [facility] MCHC 31.6 31.5 - 35.7 g/dL 04/11/2025 4:02 AM [facility] RDW 12.9 12.3 - 15.4 % 04/11/2025 4:02 AM [facility] RDW-SD 40.5 37.0 - 54.0 fl 04/11/2025 4:02 AM [facility] MPV 9.2 6.0 - 12.0 fL 04/11/2025 4:02 AM [facility] Platelets 267 140 - 450 10*3/mm3 04/11/2025 4:02 AM [facility] Neutrophil % 59.5 42.7 - 76.0 % 04/11/2025 4:02 AM [facility] Lymphocyte % 26.3 19.6 - 45.3 % 04/11/2025 4:02 AM [facility] Monocyte % 9.3 5.0 - 12.0 % 04/11/2025 4:02 AM [facility] Eosinophil % 4.1 0.3 - 6.2 % 04/11/2025 4:02 AM [facility] Basophil % 0.4 0.0 - 1.5 % 04/11/2025 4:02 AM [facility] Immature Grans % 0.4 0.0 - 0.5 % 04/11/2025 4:02 AM [facility] Neutrophils, Absolute 4.69 1.70 - 7.00 10*3/mm3 04/11/2025 4:02 AM [facility] Lymphocytes, Absolute 2.07 0.70 - 3.10 10*3/mm3 04/11/2025 4:02 AM EDT [facility] Monocytes, Absolute 0.73 0.10 - 0.90 10*3/mm3 04/11/2025 4:02 AM EDT [facility] Eosinophils, Absolute 0.32 0.00 - 0.40 10*3/mm3 04/11/2025 4:02 AM EDT [facility] Basophils, Absolute 0.03 0.00 - 0.20 10*3/mm3 04/11/2025 4:02 AM EDT [facility] Immature Grans, Absolute 0.03 0.00 - 0.05 10*3/mm3 04/11/2025 4:02 AM EDT [facility] nRBC 0.0 0.0 - 0.2 /100 WBC 04/11/2025 4:02 AM EDT [facility] Blood Venipuncture / Unknown 04/11/2025 3:40 AM EDT 04/11/2025 3:59 AM EDT Sushil Dean Jr., MD LAB BLOOD ORDERABLES nal Result [facility]
[address] [place] [address], * (ABNORMAL) Comprehensive Metabolic Panel (04/11/2025 3:40 AM EDT) Glucose 108(H) 65 - 99 mg/dL 04/11/2025 4:19 AM EDT [facility] BUN 12.5 6.0 - 20.0 mg/dL 04/11/2025 4:19 AM EDT [facility] Creatinine 0.68(L) 0.76 - 1.27 mg/dL 04/11/2025 4:19 AM EDT [facility] Sodium 140 136 - 145 mmol/L 04/11/2025 4:19 AM EDT [facility] Potassium 3.8 3.5 - 5.2 mmol/L 04/11/2025 4:19 AM [facility] Chloride 105 98 - 107 mmol/L 04/11/2025 4:19 AM [facility] CO2 28.2 22.0 - 29.0 mmol/L 04/11/2025 4:19 AM [facility] Calcium 8.2(L) 8.6 - 10.5 mg/dL 04/11/2025 4:19 AM [facility] Total Protein 6.1 6.0 - 8.5 g/dL 04/11/2025 4:19 AM [facility] Albumin 3.1(L) 3.5 - 5.2 g/dL 04/11/2025 4:19 AM [facility] ALT (SGPT) 52(H) 1 - 41 U/L 04/11/2025 4:19 AM [facility] AST (SGOT) 40 1 - 40 U/L 04/11/2025 4:19 AM [facility] Alkaline Phosphatase 99 39 - 117 U/L 04/11/2025 4:19 AM [facility] Total Bilirubin 0.2 0.0 - 1.2 mg/dL 04/11/2025 4:19 AM [facility] Globulin 3.0 gm/dL 04/11/2025 4:19 AM [facility] Comment:Calculated Result A/G Ratio 1.0 g/dL 04/11/2025 4:19 AM [facility] BUN/Creatinine Ratio 18.4 7.0 - 25.0 04/11/2025 4:19 AM [facility] Anion Gap 6.8 5.0 - 15.0 mmol/L 04/11/2025 4:19 AM [facility] eGFR 117.5 >60.0 mL/min/1.7 3 04/11/2025 4:19 AM [facility] Blood Venipuncture / Unknown 04/11/2025 3:40 AM EDT 04/11/2025 3:56 AM EDT [facility] - 04/11/2025 4:19 AM [...] does not include race as a factor Rosraio Hill APRN LAB BLOOD ORDERABLES Final Result [facility]
[address] [place] [address], * (ABNORMAL) CBC Auto Differential (04/10/2025 3:46 AM EDT) WBC 9.60 3.40 - 10.80 10*3/mm3 04/10/2025 3:56 AM EDT [facility] RBC 4.67 4.14 - 5.80 10*6/mm3 04/10/2025 3:56 AM EDT [facility] Hemoglobin 12.9(L) 13.0 - 17.7 g/dL 04/10/2025 3:56 AM EDT [facility] Hematocrit 40.1 37.5 - 51.0 % 04/10/2025 3:56 AM EDT [facility] MCV 85.9 79.0 - 97.0 fL 04/10/2025 3:56 AM EDT [facility] MCH 27.6 26.6 - 33.0 pg 04/10/2025 3:56 AM EDT [facility] MCHC 32.2 31.5 - 35.7 g/dL 04/10/2025 3:56 AM EDT [facility] RDW 12.9 12.3 - 15.4 % 04/10/2025 3:56 AM [facility] RDW-SD 40.5 37.0 - 54.0 fl 04/10/2025 3:56 AM [facility] MPV 9.5 6.0 - 12.0 fL 04/10/2025 3:56 AM [facility] Platelets 227 140 - 450 10*3/mm3 04/10/2025 3:56 AM [facility] Neutrophil % 59.1 42.7 - 76.0 % 04/10/2025 3:56 AM [facility] Lymphocyte % 29.0 19.6 - 45.3 % 04/10/2025 3:56 AM [facility] Monocyte % 8.1 5.0 - 12.0 % 04/10/2025 3:56 AM [facility] Eosinophil % 3.2 0.3 - 6.2 % 04/10/2025 3:56 AM [facility] Basophil % 0.4 0.0 - 1.5 % 04/10/2025 3:56 AM [facility] Immature Grans % 0.2 0.0 - 0.5 % 04/10/2025 3:56 AM [facility] Neutrophils, Absolute 5.67 1.70 - 7.00 10*3/mm3 04/10/2025 3:56 AM [facility] Lymphocytes, Absolute 2.78 0.70 - 3.10 10*3/mm3 04/10/2025 3:56 AM [facility] Monocytes, Absolute 0.78 0.10 - 0.90 10*3/mm3 04/10/2025 3:56 AM [facility] Eosinophils, Absolute 0.31 0.00 - 0.40 10*3/mm3 04/10/2025 3:56 AM [facility] Basophils, Absolute 0.04 0.00 - 0.20 10*3/mm3 04/10/2025 3:56 AM [facility] Immature Grans, Absolute 0.02 0.00 - 0.05 10*3/mm3 04/10/2025 3:56 AM EDT [facility] nRBC 0.0 0.0 - 0.2 /100 WBC 04/10/2025 3:56 AM EDT [facility] Blood Venipuncture / Unknown 04/10/2025 3:46 AM EDT 04/10/2025 3:53 AM EDT Jason Álvarez DO LAB BLOOD ORDERABLES Final Resul t [facility]
[address] [place] [address], * (ABNORMAL) Basic Metabolic Panel (04/10/2025 3:46 AM EDT) Glucose 125(H) 65 - 99 mg/dL 04/10/2025 4:20 AM EDT [facility] BUN 15.9 6.0 - 20.0 mg/dL 04/10/2025 4:20 AM EDT [facility] Creatinine 0.77 0.76 - 1.27 mg/dL 04/10/2025 4:20 AM EDT [facility] Sodium 137 136 - 145 mmol/L 04/10/2025 4:20 AM EDT [facility] Potassium 3.9 3.5 - 5.2 mmol/L 04/10/2025 4:20 AM EDT [facility] Chloride 102 98 - 107 mmol/L 04/10/2025 4:20 AM EDT [facility] CO2 26.9 22.0 - 29.0 mmol/L 04/10/2025 4:20 AM EDT [facility] Calcium 7.9(L) 8.6 - 10.5 mg/dL 04/10/2025 4:20 AM EDT [facility] BUN/Creatinine Ratio 20.6 7.0 - 25.0 04/10/2025 4:20 AM EDT [facility] Anion Gap 8.1 5.0 - 15.0 mmol/L 04/10/2025 4:20 AM EDT [facility] eGFR 113.2 >60.0 mL/min/1.7 3 04/10/2025 4:20 AM EDT [facility] Blood Venipuncture / Unknown 04/10/2025 3:46 AM EDT 04/10/2025 3:52 AM EDT Narrative [facility] - 04/10/2025 4:20 AM [...] ORDERABLES Final Resul t Performing Organization Address City/[facility]/ZIP Co de Phone Number [facility]
[address] [place] [address], * Heparin Anti-Xa (04/10/2025 3:46 AM EDT) Heparin Anti-Xa (UFH) 0.35 0.30 - 0.70 IU/ml 04/10/2025 4:23 AM EDT [facility] Blood Venipuncture / Unknown 04/10/2025 3:46 AM EDT 04/10/2025 3:53 AM EDT Larisa Hamilton [facility] LAB BLOOD ORDERABLES Final R esult Performing Organization Address City/[facility]/ZIP Co de Phone Number [facility]
[address] [place] [address], [place] [phone] * Heparin Anti-Xa (04/09/2025 10:05 AM EDT) Heparin Anti-Xa (UFH) 0.36 0.30 - 0.70 IU/ml 04/09/2025 11:12 AM EDT [facility] Blood Venipuncture / Unknown 04/09/2025 10:05 AM EDT 04/09/2025 10:47 AM EDT Larisa Hamilton [facility] LAB BLOOD ORDERABLES Final R esult [facility]
[address] [place] [address], * (ABNORMAL) CBC Auto Differential (04/09/2025 4:18 AM EDT) WBC 11.00(H) 3.40 - 10.80 10*3/mm3 04/09/2025 4:50 AM EDT [facility] RBC 4.70 4.14 - 5.80 10*6/mm3 04/09/2025 4:50 AM EDT [facility] Hemoglobin 13.0 13.0 - 17.7 g/dL 04/09/2025 4:50 AM EDT [facility] Hematocrit 40.4 37.5 - 51.0 % 04/09/2025 4:50 AM EDT [facility] MCV 86.0 79.0 - 97.0 fL 04/09/2025 4:50 AM EDT [facility] MCH 27.7 26.6 - 33.0 pg 04/09/2025 4:50 AM EDT [facility] MCHC 32.2 31.5 - 35.7 g/dL 04/09/2025 4:50 AM EDT [facility] RDW 12.8 12.3 - 15.4 % 04/09/2025 4:50 AM EDT [facility] RDW-SD 39.9 37.0 - 54.0 fl 04/09/2025 4:50 AM [facility] MPV 10.0 6.0 - 12.0 fL 04/09/2025 4:50 AM [facility] Platelets 211 140 - 450 10*3/mm3 04/09/2025 4:50 AM [facility] Neutrophil % 74.8 42.7 - 76.0 % 04/09/2025 4:50 AM [facility] Lymphocyte % 15.4(L) 19.6 - 45.3 % 04/09/2025 4:50 AM [facility] Monocyte % 8.5 5.0 - 12.0 % 04/09/2025 4:50 AM [facility] Eosinophil % 0.6 0.3 - 6.2 % 04/09/2025 4:50 AM [facility] Basophil % 0.4 0.0 - 1.5 % 04/09/2025 4:50 AM [facility] Immature Grans % 0.3 0.0 - 0.5 % 04/09/2025 4:50 AM [facility] Neutrophils, Absolute 8.23(H) 1.70 - 7.00 10*3/mm3 04/09/2025 4:50 AM [facility] Lymphocytes, Absolute 1.69 0.70 - 3.10 10*3/mm3 04/09/2025 4:50 AM [facility] Monocytes, Absolute 0.94(H) 0.10 - 0.90 10*3/mm3 04/09/2025 4:50 AM [facility] Eosinophils, Absolute 0.07 0.00 - 0.40 10*3/mm3 04/09/2025 4:50 AM [facility] Basophils, Absolute 0.04 0.00 - 0.20 10*3/mm3 04/09/2025 4:50 AM [facility] Immature Grans, Absolute 0.03 0.00 - 0.05 10*3/mm3 04/09/2025 4:50 AM [facility] nRBC 0.0 0.0 - 0.2 /100 WBC 04/09/2025 4:50 AM EDT [facility] Blood Venipuncture / Unknown 04/09/2025 4:18 AM EDT 04/09/2025 4:31 AM EDT Sushil Dean Jr., MD LAB BLOOD ORDERABLES Fi nal Result Performing Organization Address City/[facility]/ZIP Co de Phone Number [facility]
[address] [place] [address], * Heparin Anti-Xa (04/09/2025 4:18 AM EDT) Pathologist [facility] Heparin Anti-Xa (UFH) 0.41 0.30 - 0.70 IU/ml 04/09/2025 4:53 AM EDT [facility] Blood Venipuncture / Unknown 04/09/2025 4:18 AM EDT 04/09/2025 4:31 AM EDT Una LundbergD LAB BLOOD ORDERABLES Final R esult Performing Organization Address City/[facility]/ZIP Co de Phone Number [facility]
[address] [place] [address], * (ABNORMAL) Basic Metabolic Panel (04/09/2025 4:18 AM EDT) Glucose 147(H) 65 - 99 mg/dL 04/09/2025 5:33 AM EDT [facility] BUN 23.0(H) 6.0 - 20.0 mg/dL 04/09/2025 5:33 AM EDT [facility] Creatinine 1.15 0.76 - 1.27 mg/dL 04/09/2025 5:33 AM EDT [facility] Sodium 135(L) 136 - 145 mmol/L 04/09/2025 5:33 AM EDT [facility] Potassium 4.2 3.5 - 5.2 mmol/L 04/09/2025 5:33 AM EDT [facility] Chloride 100 98 - 107 mmol/L 04/09/2025 5:33 AM EDT [facility] CO2 26.0 22.0 - 29.0 mmol/L 04/09/2025 5:33 AM EDT [facility] Calcium 8.2(L) 8.6 - 10.5 mg/dL 04/09/2025 5:33 AM EDT [facility] BUN/Creatinine Ratio 20.0 7.0 - 25.0 04/09/2025 5:33 AM EDT [facility] Anion Gap 9.0 5.0 - 15.0 mmol/L 04/09/2025 5:33 AM EDT [facility] eGFR 80.5 >60.0 mL/min/1.7 3 04/09/2025 5:33 AM EDT [facility] Blood Venipuncture / Unknown 04/09/2025 4:18 AM EDT 04/09/2025 4:29 AM EDT Narrative [facility] - 04/09/2025 5:33 AM [...] Jr., MD LAB BLOOD ORDERABLES nal Result [facility]
[address] [place] [address], * Wound Culture - Swab, Leg, Right (04/08/2025 3:40 PM EDT) Wound Culture No growth at 3 days ALIZA 04/11/2025 10:40 AM EDT [facility] Gram Stain Few (2+) WBCs seen 04/11/2025 10:40 AM EDT [facility] Gram Stain No organisms seen 04/11/2025 10:40 AM EDT [facility] Swab Structure of right lower limb / Unknown 04/08/2025 3:40 PM EDT 04/08/2025 8:05 PM EDT Sushil Dean Jr., MD MICROBIOLOGY - GENERAL ORDERABLES Final Result Performing Organization Address City/[facility]/ZIP Co de Phone Number [facility]
[address] [place] [address], [place] [phone] [facility]
[address] [place] [address], * Anaerobic Culture - Swab, Leg, Right (04/08/2025 3:40 PM EDT) Anaerobic Culture No anaerobes isolated at 5 days ALIZA 04/13/2025 7:24 AM EDT [facility] Swab Structure of right lower limb / Unknown 04/08/2025 3:40 PM EDT 04/08/2025 8:05 PM EDT Sushil Dean Jr., MD MICROBIOLOGY - GENERAL ORDERABLES Final Result [facility]
[address] [place] [address], [place] [phone] * Scan Slide (04/08/2025 8:41 AM EDT) RBC Morphology Normal Normal 04/08/2025 11:02 AM EDT [facility] WBC Morphology Normal Normal 04/08/2025 11:02 AM EDT [facility] Platelet Estimate Adequate Normal 04/08/2025 11:02 AM EDT [facility] Clumped Platelets Present None Seen 04/08/2025 11:02 AM EDT [facility] Blood Venipuncture / Unknown 04/08/2025 8:41 AM EDT 04/08/2025 9:10 AM EDT Una Perla PharmD LAB BLOOD ORDERABLES Final R esult [facility]
[address] [place] [address], * (ABNORMAL) CBC Auto Differential (04/08/2025 8:41 AM EDT) WBC 10.07 3.40 - 10.80 10*3/mm3 04/08/2025 11:02 AM EDT [facility] RBC 5.01 4.14 - 5.80 10*6/mm3 04/08/2025 11:02 AM EDT [facility] Hemoglobin 14.0 13.0 - 17.7 g/dL 04/08/2025 11:02 AM EDT [facility] Hematocrit 42.7 37.5 - 51.0 % 04/08/2025 11:02 AM EDT [facility] MCV 85.2 79.0 - 97.0 fL 04/08/2025 11:02 AM EDT [facility] MCH 27.9 26.6 - 33.0 pg 04/08/2025 11:02 AM EDT [facility] MCHC 32.8 31.5 - 35.7 g/dL 04/08/2025 11:02 AM EDT [facility] RDW 12.6 12.3 - 15.4 % 04/08/2025 11:02 AM EDT [facility] RDW-SD 38.9 37.0 - 54.0 fl 04/08/2025 11:02 AM EDT [facility] MPV 11.0 6.0 - 12.0 fL 04/08/2025 11:02 AM [facility] Platelets 118(L) 140 - 450 10*3/mm3 04/08/2025 11:02 AM [facility] Neutrophil % 85.1(H) 42.7 - 76.0 % 04/08/2025 11:02 AM [facility] Lymphocyte % 9.3(L) 19.6 - 45.3 % 04/08/2025 11:02 AM [facility] Monocyte % 4.6(L) 5.0 - 12.0 % 04/08/2025 11:02 AM [facility] Eosinophil % 0.3 0.3 - 6.2 % 04/08/2025 11:02 AM [facility] Basophil % 0.2 0.0 - 1.5 % 04/08/2025 11:02 AM [facility] Immature Grans % 0.5 0.0 - 0.5 % 04/08/2025 11:02 AM [facility] Neutrophils, Absolute 8.57(H) 1.70 - 7.00 10*3/mm3 04/08/2025 11:02 AM [facility] Lymphocytes, Absolute 0.94 0.70 - 3.10 10*3/mm3 04/08/2025 11:02 AM [facility] Monocytes, Absolute 0.46 0.10 - 0.90 10*3/mm3 04/08/2025 11:02 AM [facility] Eosinophils, Absolute 0.03 0.00 - 0.40 10*3/mm3 04/08/2025 11:02 AM [facility] Basophils, Absolute 0.02 0.00 - 0.20 10*3/mm3 04/08/2025 11:02 AM [facility] Immature Grans, Absolute 0.05 0.00 - 0.05 10*3/mm3 04/08/2025 11:02 AM [facility] nRBC 0.0 0.0 - 0.2 /100 WBC 04/08/2025 11:02 AM EDT [facility] Blood Venipuncture / Unknown 04/08/2025 8:41 AM EDT 04/08/2025 9:10 AM EDT Una Perla PharmD LAB BLOOD ORDERABLES Final R esult [facility]
[address] [place] [address], * (ABNORMAL) Basic Metabolic Panel (04/08/2025 8:41 AM EDT) Glucose 125(H) 65 - 99 mg/dL 04/08/2025 9:51 AM EDT [facility] BUN 13.2 6.0 - 20.0 mg/dL 04/08/2025 9:51 AM EDT [facility] Creatinine 0.69(L) 0.76 - 1.27 mg/dL 04/08/2025 9:51 AM EDT [facility] Sodium 136 136 - 145 mmol/L 04/08/2025 9:51 AM EDT [facility] Potassium 4.6 3.5 - 5.2 mmol/L 04/08/2025 9:51 AM EDT [facility] Chloride 102 98 - 107 mmol/L 04/08/2025 9:51 AM EDT [facility] CO2 23.5 22.0 - 29.0 mmol/L 04/08/2025 9:51 AM EDT [facility] Calcium 8.4(L) 8.6 - 10.5 mg/dL 04/08/2025 9:51 AM EDT [facility] BUN/Creatinine Ratio 19.1 7.0 - 25.0 04/08/2025 9:51 AM EDT [facility] Anion Gap 10.5 5.0 - 15.0 mmol/L 04/08/2025 9:51 AM EDT [facility] eGFR 117.0 >60.0 mL/min/1.7 3 04/08/2025 9:51 AM EDT [facility] Blood Venipuncture / Unknown 04/08/2025 8:41 AM EDT 04/08/2025 9:09 AM EDT Narrative [facility] - 04/08/2025 9:51 AM [...] ORDERABLES Fi nal Result Performing Organization Address City/[facility]/ZIP Co de Phone Number [facility]
[address] [place] [address], * Heparin Anti-Xa (04/08/2025 8:41 AM EDT) Heparin Anti-Xa (UFH) 0.33 0.30 - 0.70 IU/ml 04/08/2025 9:40 AM EDT [facility] Blood Venipuncture / Unknown 04/08/2025 8:41 AM EDT 04/08/2025 9:10 AM EDT Sushil Dean Jr., MD LAB BLOOD ORDERABLES Fi nal Result Performing Organization Address City/[facility]/ZIP Co de Phone Number [facility]
[address] [place] [address], * FL C Arm During Surgery (04/07/2025 9:32 PM EDT) Narrative SYSTEMGENERATED, DOCUMENTATION - 04/07/2025 9:38 PM EDT This procedure was auto-finalized with no dictation required. us Sushil Dean Jr., MD IMG FLUOROSCOPY ORDERAB LES Final Result * Wound Culture - Swab, Leg, Right (04/07/2025 9:14 PM EDT) Wound Culture No growth at 3 days ALIZA 04/11/2025 10:40 AM EDT [facility] Gram Stain Occasional WBCs seen 04/11/2025 10:40 AM EDT [facility] Gram Stain No organisms seen 04/11/2025 10:40 AM EDT [facility] Swab Structure of right lower limb / Unknown Collection / Unknown 04/07/2025 9:14 PM EDT 04/08/2025 4:36 AM EDT us Sushil Dean Jr., MD MICROBIOLOGY - GENERAL ORDERABLES Final Result Performing Organization Address City/[facility]/ZIP Co de Phone Number [facility]
[address] [place] [address], [facility]
[address] [place] [address], * Anaerobic Culture - Swab, Leg, Right (04/07/2025 9:14 PM EDT) Anaerobic Culture No anaerobes isolated at 5 days ALIZA 04/13/2025 7:21 AM EDT [facility] Swab Structure of right lower limb / Unknown Collection / Unknown 04/07/2025 9:14 PM EDT 04/08/2025 4:36 AM EDT us Sushil Dean Jr., MD MICROBIOLOGY - GENERAL ORDERABLES Final Result [facility]
[address] [place] [address], [place] [phone] * Anaerobic Culture - Tissue, Leg (04/07/2025 9:13 PM EDT) Anaerobic Culture No anaerobes isolated at 5 days ALIZA 04/13/2025 7:21 AM EDT [facility] Tissue Lower limb structure / Unknown Collection / Unknown 04/07/2025 9:13 PM EDT 04/08/2025 4:54 AM EDT Jason Álvarez DO MICROBIOLOGY - GENERAL ORDERABLE S Final Result [facility]
[address] [place] [address], * AFB Culture - Tissue, Leg, Right (04/07/2025 9:13 PM EDT) AFB Culture No AFB isolated at 6 weeks 05/20/2025 4:00 AM EST [facility] AFB Stain No acid fast bacilli seen on concentrated smear 05/20/2025 4:00 AM EST [facility] Tissue Structure of right lower limb / Unknown 04/07/2025 9:13 PM EDT 04/08/2025 4:54 AM EDT Sushil Dean Jr., MD MICROBIOLOGY - GENERAL ORDERABLES Final Result Performing Organization Address [facility]/ZIP Co de Phone Number [facility]
[address] [place] [address], [place] [phone] * Tissue / Bone Culture - Tissue, Leg, Right (04/07/2025 9:13 PM EDT) Tissue Culture No growth at 3 days ALIZA 04/11/2025 10:36 AM EDT [facility] Gram Stain Rare (1+) WBCs seen 04/11/2025 10:36 AM EDT [facility] Gram Stain No organisms seen 04/11/2025 10:36 AM EDT [facility] Tissue Structure of right lower limb / Unknown 04/07/2025 9:13 PM EDT 04/08/2025 4:54 AM EDT us Sushil Dean Jr., MD MICROBIOLOGY - GENERAL ORDERABLES Final Result Performing Organization Address City/[facility]/ZIP Co de Phone Number [facility]
[address] [place] [address], [facility]
[address] [place] [address], * Fungus Culture - Tissue, Leg, Right (04/07/2025 9:13 PM EDT) Fungus Culture No fungus isolated at 6 weeks 05/20/2025 4:00 AM EST [facility] Tissue Structure of right lower limb / Unknown 04/07/2025 9:13 PM EDT 04/08/2025 4:54 AM EDT Sushil Dean Jr., MD MICROBIOLOGY - GENERAL ORDERABLES Final Result Performing Organization Address [facility] Co de Phone Number [facility]
[address] [place] [address], * (ABNORMAL) Wound Culture - Swab, Leg, Right (04/07/2025 9:07 PM EDT) Wound Culture Light growth (2+) Staphylococcus aureus, MRSA(A) ALIZA 04/10/2025 10:38 AM EDT [facility] Comment: Methicillin resistant Staphylococcus aureus, Patient may be an isolation risk. Gram Stain Few (2+) WBCs seen 04/10/2025 10:38 AM EDT [facility] Gram Stain No organisms seen 10:38 AM EDT [facility] Swab Structure of right [...] GENERAL ORDERABLES Final Result Performing Organization Address [facility] Co de Phone Number [facility]
[address] [place] [address], [facility]
[address] [place] [address], [place] [phone] * Anaerobic Culture - Swab, Leg, Right (04/07/2025 9:07 PM EDT) Anaerobic Culture No anaerobes isolated at 5 days ALIZA 04/13/2025 7:21 AM EDT [facility] Swab Structure of right lower limb / Unknown Collection / Unknown 04/07/2025 9:07 PM EDT 04/08/2025 4:36 AM EDT Sushil Dean Jr., MD MICROBIOLOGY - GENERAL ORDERABLES Final Result Performing Organization Address [facility] Co de Phone Number [facility]
[address] [place] [address], * Heparin Anti-Xa (04/07/2025 9:10 AM EDT) Heparin Anti-Xa (UFH) 0.30 0.30 - 0.70 IU/ml 04/07/2025 10:12 AM EDT [facility] Blood Venipuncture / Unknown 04/07/2025 9:10 AM EDT 04/07/2025 9:38 AM EDT Una Perla PharmD LAB BLOOD ORDERABLES Final R esult [facility]
[address] [place] [address], * (ABNORMAL) CBC Auto Differential (04/07/2025 9:10 AM EDT) WBC 8.63 3.40 - 10.80 10*3/mm3 04/07/2025 9:50 AM EDT [facility] RBC 5.23 4.14 - 5.80 10*6/mm3 04/07/2025 9:50 AM EDT [facility] Hemoglobin 14.7 13.0 - 17.7 g/dL 04/07/2025 9:50 AM EDT [facility] Hematocrit 44.8 37.5 - 51.0 % 04/07/2025 9:50 AM EDT [facility] MCV 85.7 79.0 - 97.0 fL 04/07/2025 9:50 AM EDT [facility] MCH 28.1 26.6 - 33.0 pg 04/07/2025 9:50 AM EDT [facility] MCHC 32.8 31.5 - 35.7 g/dL 04/07/2025 9:50 AM EDT [facility] RDW 12.8 12.3 - 15.4 % 04/07/2025 9:50 AM EDT [facility] RDW-SD 39.9 37.0 - 54.0 fl 04/07/2025 9:50 AM EDT [facility] MPV 10.8 6.0 - 12.0 fL 04/07/2025 9:50 AM EDT [facility] Platelets 149 140 - 450 10*3/mm3 04/07/2025 9:50 AM EDT [facility] Neutrophil % 66.7 42.7 - 76.0 % 04/07/2025 9:50 AM EDT [facility] Lymphocyte % 20.5 19.6 - 45.3 % 04/07/2025 9:50 AM EDT [facility] Monocyte % 9.8 5.0 - 12.0 % 04/07/2025 9:50 AM EDT [facility] Eosinophil % 2.1 0.3 - 6.2 % 04/07/2025 9:50 AM EDT [facility] Basophil % 0.3 0.0 - 1.5 % 04/07/2025 9:50 AM EDT [facility] Immature Grans % 0.6(H) 0.0 - 0.5 % 04/07/2025 9:50 AM EDT [facility] Neutrophils, Absolute 5.75 1.70 - 7.00 10*3/mm3 04/07/2025 9:50 AM EDT [facility] Lymphocytes, Absolute 1.77 0.70 - 3.10 10*3/mm3 04/07/2025 9:50 AM EDT [facility] Monocytes, Absolute 0.85 0.10 - 0.90 10*3/mm3 04/07/2025 9:50 AM EDT [facility] Eosinophils, Absolute 0.18 0.00 - 0.40 10*3/mm3 04/07/2025 9:50 AM EDT [facility] Basophils, Absolute 0.03 0.00 - 0.20 10*3/mm3 04/07/2025 9:50 AM EDT [facility] Immature Grans, Absolute 0.05 0.00 - 0.05 10*3/mm3 04/07/2025 9:50 AM EDT [facility] nRBC 0.0 0.0 - 0.2 /100 WBC 04/07/2025 9:50 AM EDT [facility] Blood Venipuncture / Unknown 04/07/2025 9:10 AM EDT 04/07/2025 9:38 AM EDT us Jason Álvarez DO LAB BLOOD ORDERABLES Final Resul t [facility]
[address] [place] [address], * (ABNORMAL) Basic Metabolic Panel (04/07/2025 9:10 AM EDT) Glucose 112(H) 65 - 99 mg/dL 04/07/2025 10:19 AM EDT [facility] BUN 13.1 6.0 - 20.0 mg/dL 04/07/2025 10:19 AM EDT [facility] Creatinine 0.77 0.76 - 1.27 mg/dL 04/07/2025 10:19 AM T [facility] Sodium 139 136 - 145 mmol/L 04/07/2025 10:19 AM [facility] Potassium 4.2 3.5 - 5.2 mmol/L 04/07/2025 10:19 AM [facility] Comment:Specimen hemolyzed. Result may be falsely elevated. Chloride 105 98 - 107 mmol/L 04/07/2025 10:19 AM [facility] CO2 24.8 22.0 - 29.0 mmol/L 04/07/2025 10:19 AM [facility] Calcium 8.6 8.6 - 10.5 mg/dL 04/07/2025 10:19 AM [facility] BUN/Creatinine Ratio 17.0 7.0 - 25.0 04/07/2025 10:19 AM [facility] Anion Gap 9.2 5.0 - 15.0 mmol/L 04/07/2025 10:19 AM [facility] eGFR 113.2 >60.0 mL/min/1.7 3 04/07/2025 10:19 AM [facility] Blood Venipuncture / Unknown 04/07/2025 9:10 AM EDT 04/07/2025 9:38 AM EDT [facility] - 04/07/2025 10:19 AM EDT GFR [...] Álvarez LAB BLOOD ORDERABLES Final Resul t [facility]
[address] [place] [address], * MRI Tibia Fibula Right With & [...] [place] 04/07/2025 9:58 AM EDT Workstation ID: [id number] Narrative 04/07/2025 9:58 AM EDT MRI TIBIA [...] Chitra 04/07/2025 9:58 AM EDT Workstation ID: [id number] Sushil Dean Jr., MD IMG MRI ORDERABLES Mary Beth l Result * Heparin Anti-Xa (04/07/2025 1:42 AM EDT) Heparin Anti-Xa (UFH) 0.38 0.30 - 0.70 IU/ml 04/07/2025 2:14 AM EDT [facility] Blood Venipuncture / Unknown 04/07/2025 1:42 AM EDT 04/07/2025 1:54 AM EDT Chelsie Turpin [facility] LAB BLOOD ORDERABLES Final R esult Performing Organization Address City/[facility]/ZIP Co de Phone Number [facility]
[address] [place] [address], * Heparin Anti-Xa (04/06/2025 7:16 PM EDT) Heparin Anti-Xa (UFH) 0.33 0.30 - 0.70 IU/ml 04/06/2025 7:50 PM EDT [facility] Blood Venipuncture / Unknown 04/06/2025 7:16 PM EDT 04/06/2025 7:35 PM EDT Cherri Beatty [facility] LAB BLOOD ORDERABLES Final Res ult [facility]
[address] [place] [address], * Potassium (04/06/2025 7:16 PM EDT) Potassium 4.0 3.5 - 5.2 mmol/L 04/06/2025 7:53 PM EDT [facility] Blood Venipuncture / Unknown 04/06/2025 7:16 PM EDT 04/06/2025 7:35 PM EDT Jason Preeti POWELL LAB BLOOD ORDERABLES Final Resul t Performing Organization Address City/[facility]/ZIP Co de Phone Number [facility]
[address] [place] [address], * (ABNORMAL) Heparin Anti-Xa (04/06/2025 12:36 PM EDT) Pathologist [facility] Heparin Anti-Xa (UFH) 0.24(L) 0.30 - 0.70 IU/ml 04/06/2025 1:23 PM EDT [facility] Blood Venipuncture / Unknown 04/06/2025 12:36 PM EDT 04/06/2025 1:07 PM EDT Una Perla PharmD LAB BLOOD ORDERABLES Final R esult Performing Organization Address City/[facility] Co de Phone Number [facility]
[address] [place] [address], * (ABNORMAL) Heparin Anti-Xa (04/06/2025 3:42 AM EDT) Heparin Anti-Xa (UFH) 0.25(L) 0.30 - 0.70 IU/ml 04/06/2025 5:30 AM EDT [facility] Blood Venipuncture / Unknown 04/06/2025 3:42 AM EDT 04/06/2025 4:59 AM EDT Chelsie Turpin [facility] LAB BLOOD ORDERABLES Final R esult Performing Organization Address City/State/[facility] Co de Phone Number [facility]
[address] [place] [address], * (ABNORMAL) Basic Metabolic Panel (04/06/2025 3:42 AM EDT) Glucose 94 65 - 99 mg/dL 04/06/2025 5:59 AM EDT [facility] BUN 12.8 6.0 - 20.0 mg/dL 04/06/2025 5:59 AM EDT [facility] Creatinine 0.80 0.76 - 1.27 mg/dL 04/06/2025 5:59 AM EDT [facility] Sodium 138 136 - 145 mmol/L 04/06/2025 5:59 AM EDT [facility] Potassium 3.6 3.5 - 5.2 mmol/L 04/06/2025 5:59 AM EDT [facility] Chloride 103 98 - 107 mmol/L 04/06/2025 5:59 AM EDT [facility] CO2 24.2 22.0 - 29.0 mmol/L 04/06/2025 5:59 AM EDT [facility] Calcium 8.0(L) 8.6 - 10.5 mg/dL 04/06/2025 5:59 AM EDT [facility] BUN/Creatinine Ratio 16.0 7.0 - 25.0 04/06/2025 5:59 AM EDT [facility] Anion Gap 10.8 5.0 - 15.0 mmol/L 04/06/2025 5:59 AM EDT [facility] eGFR 111.9 >60.0 mL/min/1.7 3 04/06/2025 5:59 AM EDT [facility] Blood Venipuncture / Unknown 04/06/2025 3:42 AM EDT 04/06/2025 5:20 AM EDT Narrative [facility] - 04/06/2025 5:59 AM [...] DO LAB BLOOD ORDERABLES Final Resul t [facility]
[address] [place] [address], * (ABNORMAL) CBC Auto Differential (04/06/2025 3:41 AM EDT) WBC 10.86(H) 3.40 - 10.80 10*3/mm3 04/06/2025 5:04 AM EDT [facility] RBC 5.08 4.14 - 5.80 10*6/mm3 04/06/2025 5:04 AM EDT [facility] Hemoglobin 13.9 13.0 - 17.7 g/dL 04/06/2025 5:04 AM EDT [facility] Hematocrit 43.7 37.5 - 51.0 % 04/06/2025 5:04 AM EDT [facility] MCV 86.0 79.0 - 97.0 fL 04/06/2025 5:04 AM EDT [facility] MCH 27.4 26.6 - 33.0 pg 04/06/2025 5:04 AM EDT [facility] MCHC 31.8 31.5 - 35.7 g/dL 04/06/2025 5:04 AM EDT [facility] RDW 12.8 12.3 - 15.4 % 04/06/2025 5:04 AM EDT [facility] RDW-SD 40.0 37.0 - 54.0 fl 04/06/2025 5:04 AM EDT [facility] MPV 11.7 6.0 - 12.0 fL 04/06/2025 5:04 AM [facility] Platelets 115(L) 140 - 450 10*3/mm3 04/06/2025 5:04 AM [facility] Neutrophil % 65.3 42.7 - 76.0 % 04/06/2025 5:04 AM [facility] Lymphocyte % 20.5 19.6 - 45.3 % 04/06/2025 5:04 AM [facility] Monocyte % 11.8 5.0 - 12.0 % 04/06/2025 5:04 AM [facility] Eosinophil % 1.8 0.3 - 6.2 % 04/06/2025 5:04 AM [facility] Basophil % 0.3 0.0 - 1.5 % 04/06/2025 5:04 AM [facility] Immature Grans % 0.3 0.0 - 0.5 % 04/06/2025 5:04 AM [facility] Neutrophils, Absolute 7.09(H) 1.70 - 7.00 10*3/mm3 04/06/2025 5:04 AM [facility] Lymphocytes, Absolute 2.23 0.70 - 3.10 10*3/mm3 04/06/2025 5:04 AM [facility] Monocytes, Absolute 1.28(H) 0.10 - 0.90 10*3/mm3 04/06/2025 5:04 AM [facility] Eosinophils, Absolute 0.20 0.00 - 0.40 10*3/mm3 04/06/2025 5:04 AM [facility] Basophils, Absolute 0.03 0.00 - 0.20 10*3/mm3 04/06/2025 5:04 AM [facility] Immature Grans, Absolute 0.03 0.00 - 0.05 10*3/mm3 04/06/2025 5:04 AM [facility] nRBC 0.0 0.0 - 0.2 /100 WBC 04/06/2025 5:04 AM EDT [facility] Blood Venipuncture / Unknown 04/06/2025 3:41 AM EDT 04/06/2025 4:58 AM EDT Jason Álvarez DO LAB BLOOD ORDERABLES Final Resul t [facility]
[address] [place] [address], * Heparin Anti-Xa (04/05/2025 8:43 PM EDT) Heparin Anti-Xa (UFH) 0.38 0.30 - 0.70 IU/ml 04/05/2025 9:09 PM EDT [facility] Blood Venipuncture / Unknown 04/05/2025 8:43 PM EDT 04/05/2025 8:55 PM EDT Cherri Beatty [facility] LAB BLOOD ORDERABLES Final Res ult Performing Organization Address City/[facility]/ZIP Co de Phone Number [facility]
[address] [place] [address], * CK (04/05/2025 12:15 PM EDT) Creatine Kinase 140 20 - 200 U/L 04/05/2025 1:31 PM EDT [facility] Blood Venipuncture / Unknown 04/05/2025 12:15 PM EDT 04/05/2025 1:03 PM EDT Carlton Mead MD LAB BLOOD ORDERABLES Final R esult [facility]
[address] [place] [address], * (ABNORMAL) Heparin Anti-Xa (04/05/2025 12:15 PM EDT) Pathologist [facility] Heparin Anti-Xa (UFH) 0.17(L) 0.30 - 0.70 IU/ml 04/05/2025 1:21 PM EDT [facility] Blood Venipuncture / Unknown 04/05/2025 12:15 PM EDT 04/05/2025 1:04 PM EDT [facility]LO[facility] Final R esult Performing Organization Address [facility] Co de Phone Number [facility]
[address] [place] [address], * (ABNORMAL) aPTT (04/05/2025 3:54 AM EDT) [facility] PTT 35.3(L) 60.0 - 90.0 seconds 04/05/2025 4:31 AM EDT [facility] Blood Venipuncture / Unknown 04/05/2025 3:54 AM EDT 04/05/2025 4:15 AM EDT [facility] - 04/05/2025 4:31 AM EDT PTT = The equivalent PTT values for the therapeutic range of heparin levels at 0.3 to 0.5 U/ml are 60 to 70 seconds. Una Perla PharmD LAB BLOOD ORDERABLES Final R esult Performing Organization Address City/[facility]/ZIP Co de Phone Number [facility]
[address] [place] [address], * Heparin Anti-Xa (04/05/2025 3:54 AM EDT) Pathologist [facility] Heparin Anti-Xa (UFH) 0.30 0.30 - 0.70 IU/ml 04/05/2025 4:32 AM EDT [facility] Blood Venipuncture / Unknown 04/05/2025 3:54 AM EDT 04/05/2025 4:15 AM EDT Una Minda PharmD LAB BLOOD ORDERABLES Final R esult [facility]
[address] [place] [address], [place] [phone] * (ABNORMAL) CBC Auto Differential (04/05/2025 3:54 AM EDT) WBC 11.18(H) 3.40 - 10.80 10*3/mm3 04/05/2025 4:20 AM EDT [facility] RBC 5.00 4.14 - 5.80 10*6/mm3 04/05/2025 4:20 AM EDT [facility] Hemoglobin 13.9 13.0 - 17.7 g/dL 04/05/2025 4:20 AM EDT [facility] Hematocrit 42.4 37.5 - 51.0 % 04/05/2025 4:20 AM EDT [facility] MCV 84.8 79.0 - 97.0 fL 04/05/2025 4:20 AM EDT [facility] MCH 27.8 26.6 - 33.0 pg 04/05/2025 4:20 AM EDT [facility] MCHC 32.8 31.5 - 35.7 g/dL 04/05/2025 4:20 AM EDT [facility] RDW 12.9 12.3 - 15.4 % 04/05/2025 4:20 AM EDT [facility] RDW-SD 39.7 37.0 - 54.0 fl 04/05/2025 4:20 AM EDT [facility] MPV 10.2 6.0 - 12.0 fL 04/05/2025 4:20 AM EDT [facility] Platelets 160 140 - 450 10*3/mm3 04/05/2025 4:20 AM EDT [facility] Neutrophil % 73.5 42.7 - 76.0 % 04/05/2025 4:20 AM EDT [facility] Lymphocyte % 14.0(L) 19.6 - 45.3 % 04/05/2025 4:20 AM EDT [facility] Monocyte % 11.0 5.0 - 12.0 % 04/05/2025 4:20 AM EDT [facility] Eosinophil % 0.8 0.3 - 6.2 % 04/05/2025 4:20 AM EDT [facility] Basophil % 0.3 0.0 - 1.5 % 04/05/2025 4:20 AM EDT [facility] Immature Grans % 0.4 0.0 - 0.5 % 04/05/2025 4:20 AM EDT [facility] Neutrophils, Absolute 8.23(H) 1.70 - 7.00 10*3/mm3 04/05/2025 4:20 AM [facility] Lymphocytes, Absolute 1.56 0.70 - 3.10 10*3/mm3 04/05/2025 4:20 AM [facility]IC LABORATORY Monocytes, Absolute 1.23(H) 0.10 - 0.90 10*3/mm3 04/05/2025 4:20 AM EDT [facility] Eosinophils, Absolute 0.09 0.00 - 0.40 10*3/mm3 04/05/2025 4:20 AM [facility] Basophils, Absolute 0.03 0.00 - 0.20 10*3/mm3 04/05/2025 4:20 AM [facility]IC LAB[facility] Immature Grans, Absolute 0.04 0.00 - 0.05 10*3/mm3 04/05/2025 4:20 AM [facility] nRBC 0.0 0.0 - 0.2 /100 WBC 04/05/2025 4:20 AM [facility] Blood Venipuncture / Unknown 04/05/2025 3:54 AM EDT 04/05/2025 4:16 AM EDT Una Perla PharmD LAB BLOOD ORDERABLES Final R esult [facility]
[address] [place] [address], * (ABNORMAL) Basic Metabolic Panel (04/05/2025 3:54 AM EDT) Glucose 152(H) 65 - 99 mg/dL 04/05/2025 4:40 AM EDT [facility] BUN 17.3 6.0 - 20.0 mg/dL 04/05/2025 4:40 AM EDT [facility] Creatinine 0.92 0.76 - 1.27 mg/dL 04/05/2025 4:40 AM EDT [facility] Sodium 136 136 - 145 mmol/L 04/05/2025 4:40 AM EDT [facility] Potassium 3.9 3.5 - 5.2 mmol/L 04/05/2025 4:40 AM EDT [facility] Chloride 103 98 - 107 mmol/L 04/05/2025 4:40 AM EDT [facility] CO2 24.0 22.0 - 29.0 mmol/L 04/05/2025 4:40 AM EDT [facility] Calcium 7.8(L) 8.6 - 10.5 mg/dL 04/05/2025 4:40 AM EDT [facility] BUN/Creatinine Ratio 18.8 7.0 - 25.0 04/05/2025 4:40 AM EDT [facility] Anion Gap 9.0 5.0 - 15.0 mmol/L 04/05/2025 4:40 AM EDT [facility] eGFR 105.2 >60.0 mL/min/1.7 3 04/05/2025 4:40 AM T [facility] Blood Venipuncture / Unknown 04/05/2025 3:54 AM EDT 04/05/2025 4:15 AM EDT Narrative [facility] - 04/05/2025 4:40 AM [...] ORDERABLES Final Re sult Performing Organization Address City/[facility]/ZIP Co de Phone Number [facility]
[address] [place] [address], * (ABNORMAL) aPTT (04/05/2025 12:18 AM EDT) PTT 33.6(L) 60.0 - 90.0 seconds 04/05/2025 12:53 AM EDT [facility] Blood Venipuncture / Unknown 04/05/2025 12:18 AM EDT 04/05/2025 12:37 AM EDT Narrative [facility] - 04/05/2025 12:53 AM EDT PTT = The equivalent PTT values for the therapeutic range of heparin levels at 0.3 to 0.5 U/ml are 60 to 70 seconds. Una LundbergD LAB BLOOD ORDERABLES Final R esult [facility]
[address] [place] [address], * (ABNORMAL) Protime-INR (04/05/2025 12:18 AM EDT) Protime 15.9(H) 12.2 - 15.3 Seconds 04/05/2025 12:53 AM EDT [facility] INR 1.19(H) 0.89 - 1.12 04/05/2025 12:53 AM EDT [facility] Blood Venipuncture / Unknown 04/05/2025 12:18 AM EDT 04/05/2025 12:37 AM EDT Una Perla PharmD LAB BLOOD ORDERABLES Final R esult Performing Organization Address City/[facility]/ZIP Co de Phone Number [facility]
[address] [place] [address], * Heparin Anti-Xa (04/05/2025 12:18 AM EDT) Heparin Anti-Xa (UFH) 0.39 0.30 - 0.70 IU/ml 04/05/2025 12:54 AM EDT [facility] Blood Venipuncture / Unknown 04/05/2025 12:18 AM EDT 04/05/2025 12:37 AM EDT Una [employer] LAB BLOOD ORDERABLES Final R esult Performing Organization Address City/[facility] Co de Phone Number [facility]
[address] [place] [address], * MRI Tibia Fibula Right With & [...] MD 04/04/2025 11:00 PM EDT Workstation ID: [id number] Narrative 04/04/2025 11:00 PM EDT MRI TIBIA [...] MD 04/04/2025 11:00 PM EDT Workstation ID: [id number] Leonora Shepherd MD IMG MRI ORDERABLES Final Resu lt * POC Creatinine (04/04/2025 2:49 PM EDT) [facility] Creatinine 1.10 0.60 - 1.30 mg/dL 04/07/2025 7:14 PM EDT [facility] Comment:Serial Number: [id number] 7Operator: [id number] Venous Blood 04/04/2025 2:49 PM EDT 04/07/2025 7:14 PM EDT Jason Álvarez DO POINT OF CARE TEST ORDERABLES Fi nal Result [facility]
[address] [place] [address], * (ABNORMAL) CBC Auto Differential (04/04/2025 2:47 PM EDT) [facility] WBC 12.72(H) 3.40 - 10.80 10*3/mm3 04/04/2025 2:56 PM EDT [facility] RBC 5.64 4.14 - 5.80 10*6/mm3 04/04/2025 2:56 PM EDT [facility] Hemoglobin 15.3 13.0 - 17.7 g/dL 04/04/2025 2:56 PM EDT [facility] Hematocrit 47.9 37.5 - 51.0 % 04/04/2025 2:56 PM EDT [facility] MCV 84.9 79.0 - 97.0 fL 04/04/2025 2:56 PM EDT [facility] MCH 27.1 26.6 - 33.0 pg 04/04/2025 2:56 PM EDT [facility] MCHC 31.9 31.5 - 35.7 g/dL 04/04/2025 2:56 PM EDT [facility] RDW 13.1 12.3 - 15.4 % 04/04/2025 2:56 PM EDT [facility] RDW-SD 40.3 37.0 - 54.0 fl 04/04/2025 2:56 PM EDT [facility] MPV 9.4 6.0 - 12.0 fL 04/04/2025 2:56 PM EDT [facility] Platelets 232 140 - 450 10*3/mm3 04/04/2025 2:56 PM EDT [facility] Neutrophil % 74.9 42.7 - 76.0 % 04/04/2025 2:56 PM EDT [facility] [facility] Lymphocyte % 13.1(L) 19.6 - 45.3 % 04/04/2025 2:56 PM EDT [facility] Monocyte % 11.2 5.0 - 12.0 % 04/04/2025 2:56 PM EDT [facility] Eosinophil % 0.4 0.3 - 6.2 % 04/04/2025 2:56 PM EDT [facility] Basophil % 0.2 0.0 - 1.5 % 04/04/2025 2:56 PM EDT [facility] Immature Grans % 0.2 0.0 - 0.5 % 04/04/2025 2:56 PM EDT [facility] Neutrophils, Absolute 9.52(H) 1.70 - 7.00 10*3/mm3 04/04/2025 2:56 PM EDT [facility] Lymphocytes, Absolute 1.66 0.70 - 3.10 10*3/mm3 04/04/2025 2:56 PM EDT [facility] Monocytes, Absolute 1.43(H) 0.10 - 0.90 10*3/mm3 04/04/2025 2:56 PM EDT [facility] Eosinophils, Absolute 0.05 0.00 - 0.40 10*3/mm3 04/04/2025 2:56 PM EDT [facility] Basophils, Absolute 0.03 0.00 - 0.20 10*3/mm3 04/04/2025 2:56 PM EDT [facility] Immature Grans, Absolute 0.03 0.00 - 0.05 10*3/mm3 04/04/2025 2:56 PM EDT [facility] nRBC 0.0 0.0 - 0.2 /100 WBC 04/04/2025 2:56 PM EDT [facility] Blood Venipuncture / Unknown 04/04/2025 2:47 PM EDT 04/04/2025 2:52 PM EDT [facility] LAB BLOOD ORDERABLES Fin al Result Performing Organization Address City/[facility]/ZIP Co de Phone Number [facility]
[address] [place] [address], * (ABNORMAL) C-reactive Protein (04/04/2025 2:47 PM EDT) C-Reactive Protein 8.57(H) 0.00 - 0.50 mg/dL 04/04/2025 3:26 PM EDT [facility] Blood Venipuncture / Unknown 04/04/2025 2:47 PM EDT 04/04/2025 2:52 PM EDT [facility] Fin al Result Performing Organization Address City/[facility]/ZIP Co de Phone Number [facility]
[address] [place] [address], [place] [phone] * (ABNORMAL) Sedimentation Rate (04/04/2025 2:47 PM EDT) Sed Rate 51(H) 0 - 15 mm/hr 04/04/2025 3:06 PM EDT [facility] Blood Venipuncture / Unknown 04/04/2025 2:47 PM EDT 04/04/2025 2:52 PM EDT Mario Crowley DO LAB BLOOD ORDERABLES Fin al Result [facility]
[address] [place] [address], * Comprehensive Metabolic Panel (04/04/2025 2:47 PM EDT) Pathologist [facility] Glucose 90 65 - 99 mg/dL 04/04/2025 3:26 PM EDT [facility] BUN 18.3 6.0 - 20.0 mg/dL 04/04/2025 3:26 PM EDT [facility] Creatinine 0.94 0.76 - 1.27 mg/dL 04/04/2025 3:26 PM EDT [facility] Sodium 136 136 - 145 mmol/L 04/04/2025 3:26 PM EDT [facility] Potassium 3.8 3.5 - 5.2 mmol/L 04/04/2025 3:26 PM EDT [facility] Chloride 100 98 - 107 mmol/L 04/04/2025 3:26 PM EDT [facility] CO2 25.3 22.0 - 29.0 mmol/L 04/04/2025 3:26 PM EDT [facility] Calcium 8.6 8.6 - 10.5 mg/dL 04/04/2025 3:26 PM EDT [facility] Total Protein 7.3 6.0 - 8.5 g/dL 04/04/2025 3:26 PM EDT [facility] Albumin 4.1 3.5 - 5.2 g/dL 04/04/2025 3:26 PM EDT [facility] ALT (SGPT) 26 1 - 41 U/L 04/04/2025 3:26 PM EDT [facility] AST (SGOT) 25 1 - 40 U/L 04/04/2025 3:26 PM EDT [facility] Alkaline Phosphatase 106 39 - 117 U/L 04/04/2025 3:26 PM EDT [facility] Total Bilirubin 1.0 0.0 - 1.2 mg/dL 04/04/2025 3:26 PM EDT [facility] Globulin 3.2 gm/dL 04/04/2025 3:26 PM EDT [facility] Comment:Calculated Result A/G Ratio 1.3 g/dL 04/04/2025 3:26 PM EDT [facility] BUN/Creatinine Ratio 19.5 7.0 - 25.0 04/04/2025 3:26 PM EDT [facility] Anion Gap 10.7 5.0 - 15.0 mmol/L 04/04/2025 3:26 PM EDT [facility] eGFR 102.5 >60.0 mL/min/1.7 3 04/04/2025 3:26 PM EDT [facility] Blood Venipuncture / Unknown 04/04/2025 2:47 PM EDT 04/04/2025 2:52 PM EDT [facility] - 04/04/2025 3:26 PM [...] DO LAB BLOOD ORDERABLES Fin al Result [facility]
[address] [id number], documented in this encounter Visit Diagnoses Diagnosis [...] oral is ineffective, Starting on Mon04/04/25 at 2008, [...] BPA Driven Protocol Open Order & Select [facility] Electrolyte Replacement Protocol Algorithm to [...] BPA Driven Protocol Open Order & Select [facility] Electrolyte Replacement Protocol Algorithm to [...] BPA Driven Protocol Open Order & Select [facility] Electrolyte Replacement Protocol Algorithm to [...] Hart, LU)2030 (Given - Provider: Alberto Dillon, LU) 100 (Given - Provider: Marguerite Wakefield RN) atorvastatin [...] disposal. 0831 (Given - Provider: Amber Salazar, VACUUM DRIER OPERATOR)1943 (Given - Provider: Anahy Marcelino, VACUUM DRIER OPERATOR)2129 (Canceled Entry - Provider: Anahy Marcelino, KELL - Comment: previously given) 0837 (Given - Provider: Amber Salazar, VACUUM DRIER OPERATOR)2006 (Given - Provider: Loree Reese, VACUUM DRIER OPERATOR)2129 (Canceled Entry - Provider: Loree Reese [...] RN) 09 (Given - Provider: Shirley Hart, RN)2030 (Given - Provider: Alberto Dillon, RN) 1001 (Given - Provider: Marguerite Wakefield, RN) furosemide (LASIX) tablet 20 mg 20 mg, Oral, Daily, First dose on 04/05/25 at 0900 0907 (Given - Provider: Shirley Hart RN) 09 (Given - Provider: Shirley Hart RN) 1001 (Given - Provider: Marguerite Wakefield, RN) hydroCHLOROthiazide tablet 12.5 mg 12.5 mg, Oral, Daily, First dose on 04/05/25 at 0900, Caution: Look alike/sound alike drug alert 09 (Given - Provider: Shirley Hart RN) 09 (Given - Provider: Shirley Hart RN) 1001 (Given - Provider: Marguerite Wakefield, [...] Dillon RN) 09 (Given - Provider: Shirley Hrat RN)2030 (Given - Provider: Alberto Dillon RN) 100 (Given - Provider: Marguerite Wakefield, RN) sertraline (ZOLOFT) tablet 100 mg 100 mg, Oral, Nightly, First dose on Mon04/04/25 at 2330 2026 (Given - Provider: Alberto Dillon RN) 2030 (Given - Provider: Alberto Dillon, LU) sodium chloride 0.9 % flush 10 mL [...] Continuous Medication Order 04/09/2025 04/10/2025 04/11/2025 heparin 87874 units/250 mL (100 units/mL) in 0.45 % [...] LU) 0313 (New Bag - Provider: Alberto Dillon [...] - Provider: Shirley Hart, LU) acetaminophen (TYLENOL) suppository 325 mg(Linked Group 1) [...] = Pain Score of 7-10, CPOT 5-8 2033 (Given - Provider: Alberto Dillon RN) 0906 [...] BPA Driven Protocol Open Order & [facility] Electrolyte Replacement Protocol Algorithm to [...] Shirley Hart, LU)1220 (Given - Provider: Shirley Hart RN)1438 (Given - Provider: Shirley Hart RN)1628 (Given - Provider: Shirley Hart RN)1815 (Given - Provider: Shirley Hart RN)2033 (Given - Provider: Alberto Dillon, RN)2245 (Given - Provider: Alberto Dillon, RN) 0109 (Given - Provider: Alberto Dillon, RN)0655 (Given - Provider: Alberto Dillon RN)1414 (Given - Provider: Shirley Hart RN)2124 (Given - Provider: Alberto Dillon, LU) [...] BPA Driven Protocol Open Order & Select [facility] Electrolyte Replacement Protocol Algorithm to [...] documented as of this encounter Care 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
--- OUTSIDE RECORDS SUMMARY | 2025-04-07 19:36 | XMS_ITS | Encounter Summary ---
Author Organization [facility] Address [address] [place] [address] Care Team Providers Care Career Development Manager Name Role Phone Provider, No Known Primary Care Provider Unavail able Reason for Visit * Auth/Cert Specialty Diagnoses / Procedures Referred By Bulmaro muniz Referred To Contact Diagnoses Right BKA infection Referral ID Status Reason Start Date Expiration Date Visits Re quested Visits Authorized [id number] 1 1 Encounter Details Date Type Department Care Team (Late st Contact Info) Description 04/07/2025 8:36 PM EDT Anesthesia Event [facility] OR [address] [place] [address] Luci Alonso DO [address] [place] [address] Anesthesia Record Procedure Summary Procedure Name Responsible [...] drink = 0.6 oz pur e alcohol) [facility] Utilities Answer Date Recorded In the past 12 months has [employer], gas, oil, or water [employer] threatened to shut off services in your [...] or training? Not on file Preferred Language Malawian 04/07/2025 Sex and Gender Information Value Date [...] PACU on O2NC, breathing comfortably. Report to STRIPPING CUTTER AND WINDER at bedside. VSS. * Anesthesia Procedure Notes [...] Musculoskeletal Abdominal Substance History - negative use HIDE MILL WORKER Other ROS/Med Hx Other: Eliquis 04/04/25 Hgb 14.7 k 43.2 Factor 2 on eliquis +gerd Anesthesia Plan ASA 3 - emergent general Rapid sequence (Risks and benefits of general anesthesia discussed with patient (including [place], CVA, , recall,aspiration, oropharyngeal/dental damage), questions answered, agreeable to proceed. ) intravenous induction Anesthetic plan, risks, benefits, and alternatives have been provided, discussed and informed consent has been obtained with: patient. Plan discussed with DITCHING MACHINE ENGINEER. CODE STATUS: Code Status (Patient has no [...] documented as of this encounter Care Teams Career Development Manager Relationship Specialty Start Date End Date Provider, No Known [facility] [place] [address] PCP - General 05/09/23 documented as of this encounter
--- OUTSIDE RECORDS SUMMARY | 2025-04-08 13:45 | XMS_ITS | Encounter Summary ---
Author Organization [facility] Address [address] [place] [address] Care Team Providers Care Filler In Name Role Phone Provider, No Known Primary Care Provider Unavail able Reason for Visit * Reason Comments Leg Swelling * Auth/Cert Specialty Diagnoses / Procedures Referred By Contac t Referred To Contact Diagnoses Right BKA infection Referral ID Status Reason Start Date Expiration Date Visits Re quested Visits Authorized [id number] 1 1 Encounter Details Date Type Department Care Team (Late st Contact Info) Description 04/08/2025 2:45 PM EDT - 04/08/2025 4:04 PM EDT Surgery [facility] [address] [place] [address] Sushil Dean Jr., MD [address] [place] [address] [address] [id number] LEG DEBRIDEMENT AND IRRIGATION Social History Tobacco Use Types Packs/Day Years Used Date Smoking Tobacco: Never Smokeless Tobacco: Never Tobacco Cessation:Counseling Given: Not Answered Alcohol Use Standard Drinks/Week Comments Not Currently 0 (1 standard drink = 0.6 oz pur e alcohol) [facility] Utilities Answer Date Recorded In the past 12 months has [employer], gas, oil, or water company threatened [...] or training? Not on file Preferred Language Portuguese 04/07/2025 Sex and Gender Information Value Date [...] 2:25 PM EDT Cherri Grimm RN * Frederic Suicide Severity Rating Scale (Screener/Recent Self-Report) Question [...] original note were not included. [facility] DISCHARGE SUMMARY Patient Name: Won [...] Date/Time Wound Culture - Swab, Leg, Right [[id number]] (Abnormal) (Susceptibility) Collected: 04/07/252106 Lab Status: Final [...] Units Date/Time FL C Arm During Surgery [[id number]] Resulted: 04/07/252137 Updated: 04/07/252137 Narrative: This procedure was auto-finalized with no dictation required. MRI Tibia Fibula Right With & Without Contrast [[id number]] Collected: 04/07/25 0938 Updated: 04/07/25 1001 Narrative: [...] Buenrostro 04/07/2025 9:58 AM EDT Workstation ID: [id number] MRI Tibia Fibula Right With & Without Contrast [[id number]] Collected: 04/04/252256 Updated: 04/04/252302 Narrative: MRI TIBIA [...] represent a small area of phlegmonous change ([id number] image 10) measuring approximately 1.6 cm which [...] MD 04/04/2025 11:00 PM EDT Workstation ID: [id number] Pending Labs Order Current Status Fungus Culture [...] APRN, 04/11/25, 11:12 AM EDT. Cosigned by Jdayn Richardson DO at 04/11/2025 3:42 PM EDT Associated attestation - Jadyn Richardson DO - 04/11/2025 3:42 PM EDT I have reviewed this documentation and agree. * Omar Zavala RN - 04/10/2025 4:29 PM EDT Images from the original note were not included. Won Dennis (44 y.o. Male) Date of 1980 Social Security Number [id number] [place] [address] [place] [address] Holiness Unknown Marital Status Unknown Admission Date 04/04/2025 Admission Type Emergency Admitting Provider Jadyn Richardson DO Attending Provider Jadyn Richardson DO Department, Room/Bed [facility] 5G, S565/1 Discharge Date Discharge Disposition Discharge Destination Attending Provider: Jadyn Richardson DO Allergies: Ceftin [Cefuroxime], Keflex [Cephalexin], Latex Isolation: None Infection: MRSA (05/11/23) Code Status: CPR Ht: 180.3 cm (71 ) Wt: 134 kg (295 lb) Admission Cmt: None 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 Insurance as of 04/04/2025 Primary Coverage Payor Plan Insurance Group Employer/Plan Group [place] [id number] Payor Plan Address Payor Plan Phone Number Payor Plan Fax Number Effective Dates [employer] [address] [address] 08/10/2023 - None Entered [facility] [address] Subscriber Name Subscriber Date Member ID WON DENNIS 1980 [id number] Emergency Contacts Pediatric Radiologist (Rel.) Home Phone Work Phone Mobile Phone Avril Dennis (Spouse) -- -- [phone] Robert Hackett (Relative) -- -- [phone] [facility] 5G [address] 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 Outpatient intravenous antibiotic therapy: Daptomycin 800 mg IV daily to be supplied by [facility] 2. Home health to perform [...] INFECTIOUS DISEASE Progress Note Won Dennis 1980 [id number] Date of Consult: 04/10/2025 Admission Date: 04/04/2025 [...] which prompted him to seek treatment at [facility]. He is known to Dr. Dean. [...] Jr., MD, 20 mg at 04/09/25906 heparin 98460 units/250 mL (100 units/mL) in 0.45 % [...] vancomycin 2750 mg/500 mL 0.9% NS IVPB ([facility]) Ordering Provider: Mario Crowley, DO [...] Units Date/Time FL C Arm During Surgery [[id number]] Resulted: 04/07/252137 Updated: 04/07/252137 Narrative: This procedure was auto-finalized with no dictation required. MRI Tibia Fibula Right With & Without Contrast [[id number]] Collected: 04/07/2538 Updated: 04/07/25 1001 Narrative: MRI [...] Buenrostro 04/07/2025 9:58 AM EDT Workstation ID: [id number] Impression: Recurrent Right BKA stump abscess/cellulitis- this [...] 04/10/251323 Creation Time: 04/10/251323 Signed Expand All [facility] PROGRESS NOTE Patient Name: [...] Date/Time Wound Culture - Swab, Leg, Right [[id number]] (Abnormal) (Susceptibility) Collected: 04/07/252106 Lab Status: Final [...] Row Name 04/06/25 1143 Sit-Stand Transfer Sit-Stand [place] (Transfers) modified independence - Comment, (Sit-Stand Transfer) Pt stood from recliner. Not holding onto walker, pt able to pull his pants up while balancing on his one leg. -LM Row Name 04/06/25 1143 Gait/Stairs (Locomotion) [place] Level (Gait) modified independence - Distance in [...] Motion bilateral lower extremity ROM WFL -LM [facility] Name 04/06/25 1145 Strength Comprehensive (MMT) General Manual Muscle Testing (MMT) Assessment no strength deficits identified BLEs -LM [facility] Name 04/06/25 1145 Balance Balance [...] home at d/c. PT signing off. -LM [facility] Name 04/06/25 1146 Therapy Assessment/Plan (PT) Criteria for Skilled Interventions Met (PT) no;no problems identified which require skilled intervention -LM Therapy Frequency (PT) evaluation only -LM Predicted Duration of Therapy Intervention (PT) Eval Only -LM [facility] Name 04/06/25 1146 Vital Signs Pretreatment Heart Rate (beats/min) 86 -LM Posttreatment Heart Rate (beats/min) 96 -LM Pre SpO2 (%) 95 -LM O2 Delivery Pre Treatment room air -LM Post SpO2 (%) 96 -LM O2 Delivery Post Treatment room air -LM Pre Patient Position Sitting -LM Post Patient Position Sitting -LM [facility] Name 04/06/25 1146 Positioning and [...] Physical Therapy Education Title: PT OT MANAGER GENERATION Therapies (Done) Topic: Physical Therapy (Done) Point: Mobility training (Done) Learning Progress Summary Patient Acceptance, E, VU,DU by at 04/06/2025 1147 Point: Precautions (Done) Learning Progress Summary Patient Acceptance, E, VU,DU by at 04/06/2025 1147 User Cabrera Initials Effective Dates Name Provider Type [facility] 01/24/25 - Susan Cavazos, PT Physical [...] Description Service Date Service Provider Modifiers Qty [id number] PT EVAL LOW COMPLEXITY 3 04/06/2025 Susan [...] mg Daily 04/05/2025 -- Route: Oral heparin 48060 units/250 mL (100 units/mL) in 0.45 % [...] 22 [facility] [address], [address] [facility], [address] Please schedule at [phone] VONDA Garcia 04/11/25 08:32 EDT Cosigned by Sushil Dean Jr., MD at 04/19/2025 10:33 AM EDT Associated attestation - Sushil Dean Jr., MD - 04/19/2025 10:33 AM EDT I have reviewed this documentation and agree. * Rosario Hill APRN - 04/10/2025 1:24 PM EDT Images from the original note were not included. [facility] PROGRESS NOTE Patient Name: Won [...] Date/Time Wound Culture - Swab, Leg, Right [[id number]] (Abnormal) (Susceptibility) Collected: 04/07/252106 Lab Status: Final [...] mg Daily 04/05/2025 -- Route: Oral heparin 29723 units/250 mL (100 units/mL) in 0.45 % [...] 22 [facility] [address] [facility], [address] [facility], [address] Please schedule at [phone] VONDA Garcia 04/10/25 09:01 EDT Cosigned by Sushil Dean Jr., MD at 04/19/2025 10:33 AM EDT Associated attestation - Sushil Dean Jr., MD - 04/19/2025 10:33 AM EDT I have reviewed this documentation and agree. * Carlton Mead MD - 04/10/2025 7:38 AM EDT Images from the original note were not included. INFECTIOUS DISEASE Progress Note Won Dennis 1980 [id number] Date of Consult: 04/10/2025 Admission Date: 04/04/2025 [...] which prompted him to seek treatment at [facility]. He is known to Dr. Dean. [...] IRRIGATION; Surgeon: Sushil Dean Jr., MD; Location: [facility]; Service: Orthopedics; Laterality: Right; PLACEMENT OF WOUND VAC Right 04/07/2025 Procedure: WOUND VACUUM ASSISTED CLOSURE; Surgeon: Sushil Dean Jr., MD; Location: [facility]; Service: Orthopedics; Laterality: Right; WOUND CLOSURE [...] Jr., MD, 20 mg at 04/09/25906 heparin 40325 units/250 mL (100 units/mL) in 0.45 % [...] Units Date/Time FL C Arm During Surgery [[id number]] Resulted: 04/07/252137 Updated: 04/07/252137 Narrative: This procedure was auto-finalized with no dictation required. MRI Tibia Fibula Right With & Without Contrast [[id number]] Collected: 04/07/25937 Updated: 04/07/25 100 Narrative: MRI [...] Buenrostro 04/07/2025 9:58 AM EDT Workstation ID: [id number] Impression: Recurrent Right BKA stump abscess/cellulitis- this [...] original note were not included. [facility] PROGRESS NOTE Patient Name: Won [...] Date/Time Wound Culture - Swab, Leg, Right [[id number]] (Abnormal) Collected: 04/07/252106 Lab Status: Preliminary result [...] -- Admin Instructions: Open Order & [facility] Electrolyte Replacement Protocol Algorithm to [...] mg Daily 04/05/2025 -- Route: Oral heparin 63808 units/250 mL (100 units/mL) in 0.45 % [...] -- Admin Instructions: Open Order & [facility] Electrolyte Replacement Protocol Algorithm to [...] radiographs [facility] [address] [facility], [address] [facility], [address] Please schedule at [phone] VONDA Garcia 04/09/25 09:18 EDT Cosigned by Sushil Dean Jr., MD at 04/19/2025 10:33 AM EDT Associated attestation - Sushil Dean Jr., MD - 04/19/2025 10:33 AM EDT I have reviewed this documentation and agree. * Carlton Mead MD - 04/09/2025 8:25 AM EDT Images from the original note were not included. INFECTIOUS DISEASE Progress Note Won Dennis 1980 [id number] Date of Consult: 04/09/2025 Admission Date: 04/04/2025 [...] which prompted him to seek treatment at [facility]. He is known to Dr. Dean. [...] Sushil Dean Jr., MD; Location: [facility]; Service: Orthopedics; Laterality: Right; PLACEMENT OF WOUND VAC Right 04/07/2025 Procedure: WOUND VACUUM ASSISTED CLOSURE; Surgeon: Sushil Dean Jr., MD; [facility]; Service: Orthopedics; Laterality: Right; History [...] MD, 20 mg at 04/08/25 0800 heparin 99969 units/250 mL (100 units/mL) in 0.45 % [...] Units Date/Time FL C Arm During Surgery [[id number]] Resulted: 04/07/252137 Updated: 04/07/252137 Narrative: This procedure was auto-finalized with no dictation required. MRI Tibia Fibula Right With & Without Contrast [[id number]] Collected: 04/07/25 0938 Updated: 04/07/25 1001 Narrative: [...] Chitra 04/07/2025 9:58 AM EDT Workstation ID: [id number] Impression: Recurrent Right BKA stump abscess/cellulitis- this [...] mg IV daily to be supplied by [facility] 2. Home health to perform [...] original note were not included. [facility] PROGRESS NOTE Patient Name: Won [...] Buenrostro 04/07/2025 9:58 AM EDT Workstation ID: [id number] I have personally reviewed the therapy plans: [...] -- Admin Instructions: Open Order & [facility] Electrolyte Replacement Protocol Algorithm to [...] mg Daily 04/05/2025 -- Route: Oral heparin 57271 units/250 mL (100 units/mL) in 0.45 % [...] INFECTIOUS DISEASE Progress Note Won Dennis 1980 [id number] Date of Consult: 04/08/2025 Admission Date: 04/04/2025 [...] which prompted him to seek treatment at [facility]. He is known to Dr. Dean. [...] IRRIGATION; Surgeon: Sushil Dean Jr., MD; [facility]; Service: Orthopedics; Laterality: Right; PLACEMENT OF WOUND VAC Right 04/07/2025 Procedure: WOUND VACUUM ASSISTED CLOSURE; Surgeon: Sushil Dean Jr., MD; [facility]; Service: Orthopedics; Laterality: Right; History [...] Oral, Q6H PRN, 500 mg at 04/06/25 3574 OR acetaminophen (TYLENOL) 160 MG/5ML oral solution [...] Jr., MD, 20 mg at 04/07/25950 heparin 30780 units/250 mL (100 units/mL) in 0.45 % NaCl infusion, 18 Units/kg/hr, Intravenous, Titrated, Sushil Dean Jr., MD, Last Rate: 24.1 mL/hr at 04/07/25 2334, 18 Units/kg/hr at 4 hydroCHLOROthiazide tablet 12.5 mg, 12.5 mg, Oral, Daily, Sushil Dena Jr., MD, 12.5 mg at 04/07/25950 HYDROmorphone [...] vancomycin 2750 mg/500 mL 0.9% NS IVPB ([facility]) Ordering Provider: Mario Crowley, DO [...] Units Date/Time FL C Arm During Surgery [[id number]] Resulted: 04/07/252137 Updated: 04/07/252137 Narrative: This procedure was auto-finalized with no dictation required. MRI Tibia Fibula Right With & Without Contrast [[id number]] Collected: 04/07/25 0938 Updated: 04/07/25 1001 Narrative: [...] Buenrostro 04/07/2025 9:58 AM EDT Workstation ID: [id number] Impression: Right BKA stump cellulitis- s/p BKA with multiple surgical interventions with Known MRSA 05/09/2025. (Treated by ID in [place] Dr. Harris). Dr. Torres treated him with [...] original note were not included. [facility] PROGRESS NOTE Patient Name: Won [...] Buenrostro 04/07/2025 9:58 AM EDT Workstation ID: [id number] I have personally reviewed the therapy plans: [...] INFECTIOUS DISEASE Progress Note Won Dennis 1980 [id number] Date of Consult: 04/07/2025 Admission Date: 04/04/2025 [...] which prompted him to seek treatment at [facility]. He is known to Dr. Dean. [...] MD, 20 mg at 04/06/25 0900 heparin 15350 units/250 mL (100 units/mL) in 0.45 % [...] With & Without Contrast - In process [[id number]] Resulted: 04/07/25828 Updated: 04/07/25828 This result has not been signed. Information might be incomplete. MRI Tibia Fibula Right With & Without Contrast [[id number]] Collected: 04/04/252256 Updated: 04/04/253 Narrative: MRI TIBIA [...] represent a small area of phlegmonous change ([id number] image 10) measuring approximately 1.6 cm which [...] MD 04/04/2025 11:00 PM EDT Workstation ID: [id number] Impression: Right BKA stump cellulitis- s/p BKA with multiple surgical interventions with Known MRSA 05/09/2025. (Treated by ID in [place] Dr. Harris). Dr. Torres treated him with [...] -- Admin Instructions: Open Order & [facility] Electrolyte Replacement Protocol Algorithm to [...] mg Daily 04/05/2025 -- Route: Oral heparin 30839 units/250 mL (100 units/mL) in 0.45 % [...] -- Admin Instructions: Open Order & [facility] Electrolyte Replacement Protocol Algorithm to [...] original note were not included. [facility] PROGRESS NOTE Patient Name: Won [...] MD 04/04/2025 11:00 PM EDT Workstation ID: [id number] I have personally reviewed the therapy plans: [...] mg Daily 04/05/2025 -- Route: Oral heparin 42828 units/250 mL (100 units/mL) in 0.45 % [...] -- Admin Instructions: Open Order & [facility] Electrolyte Replacement Protocol Algorithm to [...] -- Admin Instructions: Open Order & [facility] Electrolyte Replacement Protocol Algorithm to [...] INFECTIOUS DISEASE follow up. Won Dennis 1980 [id number] Date of Consult: 04/06/2025 Admission Date: 04/04/2025 [...] which prompted him to seek treatment at [facility]. He is known to Dr. Dean. [...] MD, 20 mg at 04/06/25 0900 heparin 63621 units/250 mL (100 units/mL) in 0.45 % [...] Tibia Fibula Right With & Without Contrast [[id number]] Collected: 04/04/252256 Updated: 04/04/252302 Narrative: MRI TIBIA [...] represent a small area of phlegmonous change ([id number] image 10) measuring approximately 1.6 cm which [...] MD 04/04/2025 11:00 PM EDT Workstation ID: [id number] Impression: Right BKA stump cellulitis- s/p BKA with multiple surgical interventions with Known MRSA 05/09/2025. (Treated by ID in [place] Dr. Hraris). Dr. Torres treated him with very prolonged [...] original note were not included. [facility] PROGRESS NOTE Patient Name: Won [...] MD 04/04/2025 11:00 PM EDT Workstation ID: [id number] I have personally reviewed the therapy plans: [...] original note were not included. 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 He has [...] was evaluated in the emergency department in [place], was discharged with instructions for follow-up. He [...] tablet by mouth Daily. 04/03/2025 Morning Lactobacillus-Inulin ([facility]) capsule Take 200 mg by mouth [...] MD 04/04/2025 11:00 PM EDT Workstation ID: [id number] Assessment: Right BKA infection 44-year-old male with [...] DISEASE CONSULT/INITIAL HOSPITAL VISIT Won Dennis 1980 [id number] Date of Consult: 04/05/2025 Admission Date: 04/04/2025 [...] which prompted him to seek treatment at [facility]. He is known to Dr. Dean. [...] Leonora Shepherd MD, 40 mg at 04/04/25 1704 sennosides-docusate (PERICOLACE) 8.6-50 MG per tablet 2 [...] MD, 20 mg at 04/05/25 09 heparin 27441 units/250 mL (100 units/mL) in 0.45 % [...] Leonora Shepherd MD, 10 mg at 04/04/25 1830 Pharmacy to Dose Heparin, , Not Applicable, [...] Tibia Fibula Right With & Without Contrast [[id number]] Collected: 04/04/252256 Updated: 04/04/252302 Narrative: MRI TIBIA [...] represent a small area of phlegmonous change (ihyggh36 image 10) measuring approximately 1.6 cm which [...] MD 04/04/2025 11:00 PM EDT Workstation ID: [id number] Impression: Right BKA stump cellulitis- s/p BKA with multiple surgical interventions with Known MRSA 05/09/2025. (Treated by ID in [place] Dr. Harris). Dr. Torres treated him with [...] pads utilized Goal Outcome Evaluation: * Susan Caavzos PT - 04/06/2025 11:22 AM EDT Goal [...] Jr., MD - 04/08/2025 3:51 PM EDT [facility] OPERATIVE REPORT PATIENT NAME: Won Dennis DATE OF : 1980 PREOP DIAGNOSIS: Right Right below-knee amputation infection POSTOP DIAGNOSIS: Same. PROCEDURE: Right Right 12519: Secondary closure below-knee amputation SURGEON: Sushil Dean MD OPERATIVE TEAM: Washing Machine Assembler: Susi Grullon RN Scrub Person: Mary Paredes Scrub Person Extra: Hortencia Toribio Other: Katt Gotti RN; Charis Neville RN ANESTHETIST: Anesthesiologist: Ulises Hoffman MD ASSISTED LIVING ASSOCIATE: Stna Casillas CRNA Student Nurse Multimedia Coordinator: Karol Albert SRNA ANESTHESIA: Choice ESTIMATED BLOOD [...] CULTURE (Canceled) Sushil Dean Jr., MD 04/08/25 4141 Description: RIGHT LEG DEEP WOUND FOR CULTURE [...] PM EDT [facility], [place] [address] OPERATIVE REPORT PATIENT NAME: Won Dennis DATE OF : 1980 PREOP DIAGNOSIS: Right Right below knee amputation stump infection POSTOP DIAGNOSIS: Same. PROCEDURE: Right Right 93674: Incision and drainage of surgical site infection 27300: Debridement of skin, subcutaneous tissue, muscle 01838: Wound vacuum-assisted closure SURGEON: Sushil Dean MD OPERATIVE TEAM: Washing Machine Assembler: Anum Sanchez RN Scrub Person: Hortencia Toribio; Gerald Ivey INSTALLERS MECHANICAL: Anesthesiologist: Luci Alonso DO ANESTHESIA: General ESTIMATED [...] ago swellling of the area. seen at [facility] yesterday for CT and US, here [...] this chart in the absence of a library helper. No orders to display RADIOLOGY: [x] [...] is discharging home with outpatient infusion at [facility]. He has an appointment with [facility] at 8:00 am tomorrow. They will do PICC line dressing changes. DEBRA has spoke with Dena at [facility] today multiple times to get setup [...] to get IV ABX at home with [facility]; however, Medicaid lapsed on 04/08. DEBRA was unaware until this morning that Medicaid has lapsed. Patient explained that he has Medicare A and B. CM spoke with KELLEE and given themhis Medicare number [id number], she sent it to Admission. DEBRA spoke with Kerri, with [facility], and explained that he had [...] changes and lab work. DEBRA called D[facility] Outpatient infusion center they can accept patient and start him. He is known for their facility. The Facility will need to run it through his insurance first. CM faxed the orders over to [facility] at [phone]. CM will follow up with them tomorrow at [facility] to make sure they received the [...] 04/09/2025 2:51 PM EDT Continued Stay Note [facility] Patient Name: Won Dennis Today's Date: 04/09/2025 Admit Date: 04/04/2025 Plan: Home Discharge Plan Row Name 04/09/25 1311 Plan Plan Home Patient/Family in Agreement with Plan yes Plan Comments CM spoke with patient at bedside today. Wheelchair from [employer] is at bedside. Patient getting PICC line [...] note were not included. Discharge Planning Assessment [facility] Patient Name: Won Dennis Today's [...] Anticipated Services at Transition residential case managermanager office services Anticipated family or friend will provide Discharge Needs Assessment Equipment Currently Used at Home glucometer;shower chair;pulse ox;bp cuff;prosthesis;crutches Equipment Needed After Discharge none Discharge Plan Row Name 04/07/25 1144 Plan Plan Home Patient/Family in Agreement with Plan yes Plan Comments CM spoke with patient at bedside today. Patient lives with and his 5 kids in [facility]. 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 He has walker, cane, shower chair, and crutches. He requested a wheelchair for home. CM [facility] He is not current with home health services. PCP is Dr. Jordan. Insurance is [employer] [place]. Patient discharge plan is home with priavte transport. CM will follow for any discharge needs. Final Discharge Disposition Code 01 - home or self-care Continued Care and Services - Admitted Since 04/04/2025 No active coordination exists. Demographic Summary Row Name 04/07/25 1143 General Information Arrived From hospital Preferred Language Portuguese Functional Status Row Name 04/07/25 1143 Functional [...] 3:4 0 PM EDT Right BKA infection ND SEC ABDOMINAL WALL SUTURE EVISCERATION/DEHSN 04/08/2025 3:20 [...] CBC Auto Differential (04/11/2025 3:40 AM EDT) [facility] WBC 7.87 3.40 - 10.80 10*3/mm3 04/11/2025 4:02 AM EDT [facility] RBC 4.70 4.14 - 5.80 10*6/mm3 04/11/2025 4:02 AM EDT [facility] Hemoglobin 12.8(L) 13.0 - 17.7 g/dL 04/11/2025 4:02 AM [facility] Hematocrit 40.5 37.5 - 51.0 % 04/11/[facility]25 [facility] MCV 86.2 79.0 - 97.0 fL 04/11/2025 4:02 AM [facility] MCH 27.2 26.6 - 33.0 pg 04/11/2025 4:02 AM [facility] MCHC 31.6 31.5 - 35.7 g/dL 04/11/2025 4:02 AM [facility] RDW 12.9 12.3 - 15.4 % 04/11/2025 4:02 AM [facility] RDW-SD 40.5 37.0 - 54.0 fl 04/11/2025 4:02 AM [facility] MPV 9.2 6.0 - 12.0 fL 04/11/2025 4:02 AM [facility] Platelets 267 140 - 450 10*3/mm3 04/11/2025 4:02 AM [facility] Neutrophil % 59.5 42.7 - 76.0 % 04/11/2025 4:02 AM [facility] Lymphocyte % 26.3 19.6 - 45.3 % 04/11/2025 4:02 AM [facility] Monocyte % 9.3 5.0 - 12.0 % 04/11/2025 4:[facility] Eosinophil % 4.1 0.3 - 6.2 % 04/11/2025 4:[facility] Basophil % 0.4 0.0 - 1.5 % 04/11/2025 4:[facility] Immature Grans % 0.4 0.0 - 0.5 % 04/11/2025 4:02 [facility] Neutrophils, Absolute 4.69 1.70 - 7.00 10*3/mm3 04/11/2025 4:02 AM EDT [facility] Lymphocytes, Absolute 2.07 0.70 - 3.10 10*3/mm3 04/11/2025 4:02 AM EDT [facility] Monocytes, Absolute 0.73 0.10 - 0.90 10*3/mm3 04/11/2025 4:02 AM EDT [facility] Eosinophils, Absolute 0.32 0.00 - 0.40 10*3/mm3 04/11/2025 4:02 AM EDT [facility] Basophils, Absolute 0.03 0.00 - 0.20 10*3/mm3 04/11/2025 4:02 AM EDT [facility] Immature Grans, Absolute 0.03 0.00 - 0.05 10*3/mm3 04/11/2025 4:02 AM EDT [facility] nRBC 0.0 0.0 - 0.2 /100 WBC 04/11/2025 4:02 AM EDT [facility] Blood Venipuncture / Unknown 04/11/2025 3:40 AM EDT 04/11/2025 3:59 AM EDT Sushil Dean Jr., MD LAB BLOOD ORDERABLES Fi nal Result [facility]
[address] [place] [address], * (ABNORMAL) Comprehensive Metabolic Panel (04/11/2025 3:40 AM EDT) Glucose 108(H) 65 - 99 mg/dL 04/11/2025 4:19 AM EDT [facility] BUN 12.5 6.0 - 20.0 mg/dL 04/11/2025 4:19 AM EDT [facility] Creatinine 0.68(L) 0.76 - 1.27 mg/dL 04/11/2025 4:19 AM EDT [facility] Sodium 140 136 - 145 mmol/L 04/11/2025 4:19 AM [facility] Potassium 3.8 3.5 - 5.2 mmol/L 04/11/2025 4:19 AM [facility] Chloride 105 98 - 107 mmol/L 04/11/2025 4:19 AM [facility] CO2 28.2 22.0 - 29.0 mmol/L 04/11/2025 4:19 AM [facility] Calcium 8.2(L) 8.6 - 10.5 mg/dL 04/11/2025 4:19 AM [facility] Total Protein 6.1 6.0 - 8.5 g/dL 04/11/2025 4:19 AM [facility] Albumin 3.1(L) 3.5 - 5.2 g/dL 04/11/2025 4:19 AM [facility] ALT (SGPT) 52(H) 1 - 41 U/L 04/11/2025 4:19 AM [facility] AST (SGOT) 40 1 - 40 U/L 04/11/2025 4:19 AM [facility] Alkaline Phosphatase 99 39 - 117 U/L 04/11/2025 4:19 AM [facility] Total Bilirubin 0.2 0.0 - 1.2 mg/dL 04/11/2025 4:19 AM [facility] Globulin 3.0 gm/dL 04/11/2025 4:19 AM [facility] Comment:Calculated Result A/G Ratio 1.0 g/dL 04/11/2025 4:19 AM [facility] BUN/Creatinine Ratio 18.4 7.0 - 25.0 04/11/2025 4:19 AM [facility] Anion Gap 6.8 5.0 - 15.0 mmol/L 04/11/2025 4:19 AM [facility] eGFR 117.5 >60.0 mL/min/1.7 3 04/11/2025 4:19 AM [facility] [...] ORDERABLES Final Result [facility]
[address] [place] [address], * (ABNORMAL) CBC Auto Differential (04/10/2025 3:46 AM EDT) WBC 9.60 3.40 - 10.80 10*3/mm3 04/10/2025 3:56 AM EDT [facility] RBC 4.67 4.14 - 5.80 10*6/mm3 04/10/2025 3:56 AM EDT [facility] Hemoglobin 12.9(L) 13.0 - 17.7 g/dL 04/10/2025 3:56 AM EDT [facility] Hematocrit 40.1 37.5 - 51.0 % 04/10/2025 3:56 AM EDT [facility] MCV 85.9 79.0 - 97.0 fL 04/10/2025 3:56 AM EDT [facility] MCH 27.6 26.6 - 33.0 pg 04/10/2025 3:56 AM EDT [facility] MCHC 32.2 31.5 - 35.7 g/dL 04/10/2025 3:56 AM [facility] 10*3/mm3 04/10/2025 3:56 AM [facility] Neutrophil % 59.1 42.7 - 76.0 % 04/10/2025 3:56 AM [facility] Lymphocyte % 29.0 19.6 - 45.3 % 04/10/2025 3:56 AM [facility] Monocyte % 8.1 5.0 - 12.0 % 04/10/2025 3:56 AM [facility] Eosinophil % 3.2 0.3 - 6.2 % 04/10/2025 3:56 AM [facility] Basophil % 0.4 0.0 - 1.5 % 04/10/2025 3:56 AM [facility] Immature Grans % 0.2 0.0 - 0.5 % 04/10/2025 3:56 AM [facility] Neutrophils, Absolute 5.67 1.70 - 7.00 10*3/mm3 04/10/2025 3:56 AM [facility] Lymphocytes, Absolute 2.78 0.70 - 3.10 10*3/mm3 04/10/2025 3:56 AM [facility] Monocytes, Absolute 0.78 0.10 - 0.90 10*3/mm3 04/10/2025 3:56 AM [facility] Eosinophils, Absolute 0.31 0.00 - 0.40 10*3/mm3 04/10/2025 3:56 AM [facility] [...] Final Resul t [facility]
[address] [place] [address], * (ABNORMAL) Basic Metabolic Panel (04/10/2025 3:46 AM EDT) Glucose 125(H) 65 - 99 mg/dL 04/10/2025 4:20 AM EDT [facility] BUN 15.9 6.0 - 20.0 mg/dL 04/10/2025 4:20 AM EDT [facility] Creatinine 0.77 0.76 - 1.27 mg/dL 04/10/2025 4:20 AM EDT [facility] Sodium 137 136 - 145 mmol/L 04/10/2025 4:20 AM EDT [facility] Potassium 3.9 3.5 - 5.2 mmol/L 04/10/2025 4:20 AM EDT [facility] Chloride 102 98 - 107 mmol/L 04/10/2025 4:20 AM EDT [facility] CO2 26.9 22.0 - 29.0 mmol/L 04/10/2025 4:20 AM EDT [facility] Calcium 7.9(L) 8.6 - 10.5 mg/dL 04/10/2025 4:20 AM EDT [facility] BUN/Creatinine Ratio 20.6 7.0 - 25.0 04/10/2025 4:20 AM EDT [facility] Anion Gap 8.1 5.0 - 15.0 mmol/L 04/10/2025 4:20 AM EDT [facility] eGFR 113.2 >60.0 mL/min/1.7 3 04/10/2025 4:20 AM EDT [facility] Blood Venipuncture / Unknown 04/10/2025 3:46 AM EDT 04/10/2025 3:52 AM EDT Narrative [facility] - 04/10/2025 4:20 AM EDT GFR [...] Final Resul t [facility]
[address] [place] [address], * Heparin Anti-Xa (04/10/2025 3:46 AM EDT) Heparin Anti-Xa (UFH) 0.35 0.30 - 0.70 IU/ml 04/10/2025 4:23 AM EDT [facility] Blood Venipuncture / Unknown 04/10/2025 3:46 AM EDT 04/10/2025 3:53 AM EDT Larisa Hamilton [facility] LAB BLOOD ORDERABLES Final R esult [facility]
[address] [place] [address], [place] [phone] * Heparin Anti-Xa (04/09/2025 10:05 AM EDT) Pathologist [facility] Heparin Anti-Xa (UFH) 0.36 0.30 - 0.70 IU/ml 04/09/2025 11:12 AM EDT [facility] Blood Venipuncture / Unknown 04/09/2025 10:05 AM EDT 04/09/2025 10:47 AM EDT Larisa Hamilton [facility] LAB BLOOD ORDERABLES Final R esult [facility]
[address] [place] [address], * (ABNORMAL) CBC Auto Differential (04/09/2025 4:18 AM EDT) Pathologist [facility] WBC 11.00(H) 3.40 - 10.80 10*3/mm3 04/09/2025 4:50 AM EDT [facility] RBC [...] pg 04/09/2025 4:50 AM EDT [facility] MCHC 32.2 31.5 - 35.7 g/dL 04/09/2025 4:50 AM EDT [facility] RDW 12.8 12.3 - 15.4 % 04/09/2025 4:50 AM EDT [facility] RDW-SD 39.9 37.0 - 54.0 fl 04/09/2025 4:50 AM [facility] MPV 10.0 6.0 - 12.0 fL 04/09/2025 4:50 AM [facility] Platelets 211 140 - 450 10*3/mm3 04/09/2025 4:50 AM [facility] Neutrophil % 74.8 42.7 - 76.0 % 04/09/2025 4:50 AM [facility] Lymphocyte % 15.4(L) 19.6 - 45.3 % 04/09/2025 4:50 AM [facility] Monocyte % 8.5 5.0 - 12.0 % 04/09/2025 4:50 AM [facility] Eosinophil % 0.6 0.3 - 6.2 % 04/09/2025 4:50 AM [facility] Basophil % 0.4 0.0 - 1.5 % 04/09/2025 4:50 AM [facility] Immature Grans % 0.3 0.0 - 0.5 % 04/09/2025 4:50 AM [facility] Neutrophils, Absolute 8.23(H) 1.70 - 7.00 10*3/mm3 04/09/2025 4:50 AM [facility] Lymphocytes, Absolute 1.69 0.70 - 3.10 10*3/mm3 04/09/2025 4:50 AM [facility] Monocytes, Absolute 0.94(H) 0.10 - [...] nal Result [facility]
[address] [place] [address], * Heparin Anti-Xa (04/09/2025 4:18 AM EDT) Heparin Anti-Xa (UFH) 0.41 0.30 - 0.70 IU/ml 04/09/2025 4:53 AM EDT [facility] Blood Venipuncture / Unknown 04/09/2025 4:18 AM EDT 04/09/2025 4:31 AM EDT Una Perla PharmD LAB BLOOD ORDERABLES Final R esult [facility]
[address] [place] [address], * (ABNORMAL) Basic Metabolic Panel (04/09/2025 4:18 [...] 4:18 AM EDT 04/09/2025 4:29 AM EDT [facility] - 04/09/2025 5:33 AM [...] ORDERABLES nal Result [facility]
[address] [place] [address], * Wound Culture - Swab, Leg, Right [...] GENERAL ORDERABLES Final Result Performing Organization Address City/[facility]/ZIP Co de Phone Number [facility]
[address] [place] [address], [facility]
[address] [place] [address], * Anaerobic Culture - Swab, Leg, Right (04/08/2025 3:40 PM EDT) Anaerobic Culture No anaerobes isolated at 5 days ALIZA 04/13/2025 7:24 AM EDT [facility] Swab Structure of right lower limb / Unknown 04/08/2025 3:40 PM EDT 04/08/2025 8:05 PM EDT us Sushil Dean Jr., MD MICROBIOLOGY - GENERAL ORDERABLES Final Result [facility]
[address] [place] [address], [place] [phone] * Scan Slide (04/08/2025 8:41 AM EDT) [...] R esult [facility]
[address] [place] [address], * (ABNORMAL) CBC Auto Differential (04/08/2025 8:41 AM EDT) WBC 10.07 3.40 - 10.80 10*3/mm3 04/08/2025 11:02 AM EDT [facility] RBC 5.01 4.14 - 5.80 10*6/mm3 04/08/2025 11:02 AM EDT [facility] Hemoglobin 14.0 13.0 - 17.7 g/dL 04/08/2025 11:02 AM EDT [facility] Hematocrit 42.7 37.5 - 51.0 % 04/08/2025 11:02 AM EDT [facility] MCV 85.2 79.0 - 97.0 fL 04/08/2025 11:02 AM EDT [facility] MCH 27.9 26.6 - 33.0 pg 04/08/2025 11:02 AM EDT [facility] MCHC 32.8 31.5 - 35.7 g/dL 04/08/2025 11:02 AM EDT [facility] RDW 12.6 12.3 - 15.4 % 04/08/2025 11:02 AM EDT [facility] RDW-SD 38.9 37.0 - 54.0 fl 04/08/2025 11:02 AM EDT [facility] MPV 11.0 6.0 - 12.0 fL [facility] Lymphocytes, Absolute 0.94 0.70 - 3.10 10*3/mm3 04/08/2025 11:02 AM [facility] Monocytes, Absolute 0.46 0.10 - 0.90 10*3/mm3 04/08/2025 11:02 AM [facility] Eosinophils, Absolute 0.03 0.00 - 0.40 10*3/mm3 04/08/2025 11:02 AM [facility] Basophils, Absolute 0.02 0.00 - 0.20 10*3/mm3 04/08/2025 11:02 AM [facility] Immature Grans, Absolute 0.05 0.00 - 0.05 10*3/mm3 04/08/2025 11:02 AM [facility] nRBC 0.0 0.0 - 0.2 /100 WBC 04/08/2025 11:02 AM EDT [facility] Blood Venipuncture / Unknown 04/08/2025 8:41 AM EDT 04/08/2025 9:10 AM EDT Una Perla PharmD LAB BLOOD ORDERABLES Final R esult [facility]
[address] [place] [address], * (ABNORMAL) Basic Metabolic Panel (04/08/2025 8:41 [...] 04/08/2025 9:09 AM EDT Narrative [facility] - 04/08/2025 9:51 AM EDT GFR [...] ORDERABLES Fi nal Result Performing Organization Address City/[facility]/ZIP Co de Phone Number [facility]
[address] [place] [address], * Heparin Anti-Xa (04/08/2025 8:41 AM EDT) Heparin Anti-Xa (UFH) 0.33 0.30 - 0.70 IU/ml 04/08/2025 9:40 AM EDT [facility] Blood Venipuncture / Unknown 04/08/2025 8:41 AM EDT 04/08/2025 9:10 AM EDT Sushil Dean Jr., MD LAB BLOOD ORDERABLES Fi nal Result Performing Organization Address [facility] Co de Phone Number [facility]
[address] [place] [address], * FL C Arm During Surgery (04/07/2025 [...] GENERAL ORDERABLES Final Result Performing Organization Address City/[facility]/ZIP Co de Phone Number [facility]
[address] [place] [address], [facility] [place] [address], * Anaerobic Culture - Swab, Leg, Right (04/07/2025 9:14 PM EDT) Anaerobic Culture No anaerobes isolated at 5 days ALIZA 04/13/2025 7:21 AM EDT [facility] Swab Structure of right lower limb / Unknown Collection / Unknown 04/07/2025 9:14 PM EDT 04/08/2025 4:36 AM EDT us Sushil Dean Jr., MD MICROBIOLOGY - GENERAL ORDERABLES Final Result Performing Organization Address City/[facility]/ZIP Co de Phone Number [facility]
[address] [place] [address], * Anaerobic Culture - Tissue, Leg (04/07/2025 9:13 PM EDT) Anaerobic Culture No anaerobes isolated at 5 days ALIZA 04/13/2025 7:21 AM EDT [facility] Tissue Lower limb structure / Unknown Collection / Unknown 04/07/2025 9:13 PM EDT 04/08/2025 4:54 AM EDT Jason Álvarez DO MICROBIOLOGY - GENERAL ORDERABLE S Final Result [facility]
[address] [place] [address], [place] [phone] * AFB Culture - Tissue, Leg, Right (04/07/2025 9:13 PM EDT) AFB Culture No AFB isolated at 6 weeks 05/20/2025 4:00 AM EST [facility] AFB Stain No acid fast bacilli seen on concentrated smear 05/20/2025 4:00 AM EST [facility] Tissue Structure of right lower limb / Unknown 04/07/2025 9:13 PM EDT 04/08/2025 4:54 AM EDT Sushil Dean Jr., MD MICROBIOLOGY - GENERAL ORDERABLES Final Result [facility]
[address] [place] [address], [place] [phone] * Tissue / Bone Culture - Tissue, [...] Result [facility]
[address] [phone], [facility]
[address] [place] [address], * Fungus Culture - Tissue, Leg, Right (04/07/2025 9:13 PM EDT) Fungus Culture No fungus isolated at 6 weeks 05/20/2025 4:00 AM EST [facility] Tissue Structure of right lower limb / Unknown 04/07/2025 9:13 PM EDT 04/08/2025 4:54 AM EDT Sushil Dean Jr., MD MICROBIOLOGY - GENERAL ORDERABLES Final Result Performing Organization Address City/[facility]/ZIP Co de Phone Number [facility]
[address] [place] [address], * (ABNORMAL) Wound Culture - Swab, Leg, [...] GENERAL ORDERABLES Final Result Performing Organization Address City/[facility]/ZIP Co de Phone Number [facility]
[address] [place] [address], [facility]
[address] [place] [address], [place] [phone] * Anaerobic Culture - Swab, Leg, Right [...] GENERAL ORDERABLES Final Result Performing Organization Address City/[facility]/ZIP Co de Phone Number [facility]
[address] [place] [address], * Heparin Anti-Xa (04/07/2025 9:10 AM EDT) Heparin Anti-Xa (UFH) 0.30 0.30 - 0.70 IU/ml 04/07/2025 10:12 AM EDT [facility] Blood Venipuncture / Unknown 04/07/2025 9:10 AM EDT 04/07/2025 9:38 AM EDT Una Perla PharmD LAB BLOOD ORDERABLES Final R esult [facility]
[address] [place] [address], * (ABNORMAL) CBC Auto Differential (04/07/2025 9:10 AM EDT) WBC 8.63 3.40 - 10.80 10*3/mm3 04/07/2025 9:50 AM EDT [facility] RBC 5.23 4.14 - 5.80 10*6/mm3 04/07/2025 9:50 AM EDT [facility] Hemoglobin 14.7 13.0 - 17.7 g/dL 04/07/2025 9:50 AM EDT [facility] Hematocrit 44.8 37.5 - 51.0 % 04/07/2025 9:50 AM EDT [facility] MCV 85.7 79.0 - 97.0 fL 04/07/2025 9:50 AM EDT [facility] MCH 28.1 26.6 - 33.0 pg 04/07/2025 9:50 AM EDT [facility] MCHC 32.8 31.5 - 35.7 g/dL 04/07/2025 9:50 AM EDT [facility] RDW 12.8 12.3 - 15.4 % 04/07/2025 9:50 AM EDT [facility] RDW-SD 39.9 37.0 - 54.0 fl 04/07/2025 9:50 AM EDT [facility] MPV 10.8 6.0 - 12.0 fL 04/07/2025 9:50 AM EDT [facility] Platelets 149 140 - 450 10*3/mm3 04/07/2025 9:50 AM EDT [facility] Neutrophil % 66.7 42.7 - 76.0 % 04/07/2025 9:50 AM EDT [facility] Lymphocyte % 20.5 19.6 - 45.3 % 04/07/2025 9:50 AM EDT [facility] Monocyte % 9.8 5.0 - 12.0 % 04/07/2025 9:50 AM EDT [facility] Eosinophil % 2.1 0.3 - 6.2 % 04/07/2025 9:50 AM EDT [facility] Basophil % 0.3 0.0 - 1.5 % 04/07/2025 9:50 AM EDT [facility] Immature Grans % 0.6(H) 0.0 - [...] - 0.2 /100 WBC 04/07/2025 9:50 AM T [facility] Blood Venipuncture / Unknown 04/07/2025 9:10 AM EDT 04/07/2025 9:38 AM EDT us Jason Álvarez DO LAB BLOOD ORDERABLES Final Resul t [facility]
[address] [place] [address], * (ABNORMAL) Basic Metabolic Panel (04/07/2025 9:10 [...] 10:19 AM EDT [facility] BUN/Creatinine Ratio 17.0 7.0 - 25.0 04/07/2025 10:19 AM EDT [facility] Anion Gap 9.2 5.0 - 15.0 mmol/L 04/07/2025 10:19 AM EDT [facility] eGFR 113.2 >60.0 mL/min/1.7 3 04/07/2025 10:19 AM EDT [facility] Blood [...] Final Resul t [facility]
[address] [place] [address], * MRI Tibia Fibula Right With & [...] [place] 04/07/2025 9:58 AM EDT Workstation ID: [id number] Narrative 04/07/2025 9:58 AM EDT MRI TIBIA [...] Chitra 04/07/2025 9:58 AM EDT Workstation ID: [id number] us Sushil Dean Jr., MD IMG MRI ORDERABLES Mar Ybeth l Result * Heparin Anti-Xa (04/07/2025 1:42 AM EDT) Heparin Anti-Xa (UFH) 0.38 0.30 - 0.70 IU/ml 04/07/2025 2:14 AM EDT [facility] Blood Venipuncture / Unknown 04/07/2025 1:42 AM EDT 04/07/2025 1:54 AM EDT Chelsiejamaal Turpin [facility] LAB BLOOD ORDERABLES Final R esult Performing Organization Address [facility] Co de Phone Number [facility]
[address] [place] [address], * Heparin Anti-Xa (04/06/2025 7:16 PM EDT) Heparin Anti-Xa (UFH) 0.33 0.30 - 0.70 IU/ml 04/06/2025 7:50 PM EDT [facility] Blood Venipuncture / Unknown 04/06/2025 7:16 PM EDT 04/06/2025 7:35 PM EDT Cherri Beatty [facility] LAB BLOOD ORDERABLES Final Res ult Performing Organization Address City/[facility]/ZIP Co de Phone Number [facility]
[address] [place] [address], * Potassium (04/06/2025 7:16 PM EDT) Potassium 4.0 3.5 - 5.2 mmol/L 04/06/2025 7:53 PM EDT [facility] Blood Venipuncture / Unknown 04/06/2025 7:16 PM EDT 04/06/2025 7:35 PM EDT Jasonalfonso Álvarez LAB BLOOD ORDERABLES Final Resul t Performing Organization Address City/[facility]/ZIP Co de Phone Number [facility]
[address] [place] [address], * (ABNORMAL) Heparin Anti-Xa (04/06/2025 12:36 PM EDT) Pathologist [facility] Heparin Anti-Xa ([facility]) 0.24(L) 0.30 - 0.70 IU/ml 04/06/2025 1:23 PM EDT [facility] Blood Venipuncture / Unknown 04/06/2025 12:36 PM EDT 04/06/2025 1:07 PM EDT Una LundbergD LAB BLOOD ORDERABLES Final R esult [facility]
[address] [place] [address], * (ABNORMAL) Heparin Anti-Xa (04/06/2025 3:42 AM EDT) Heparin Anti-Xa ([facility]FH) 0.25(L) 0.30 - 0.70 IU/ml 04/06/2025 5:30 AM EDT [facility] Blood Venipuncture / Unknown 04/06/2025 3:42 AM EDT 04/06/2025 4:59 AM EDT Chelsie Turpin [facility] LAB BLOOD ORDERABLES Final R esult [facility]
[address] [place] [address], * (ABNORMAL) Basic Metabolic Panel (04/06/2025 3:42 [...] Final Resul t [facility]
[address] [place] [address], * (ABNORMAL) CBC Auto Differential (04/06/2025 3:41 [...] fl 04/06/2025 5:04 AM [facility] MPV 11.7 6.0 - 12.0 fL 04/06/2025 5:04 AM [facility] Platelets 115(L) 140 - 450 10*3/mm3 04/06/2025 5:04 AM [facility] Neutrophil % 65.3 42.7 - 76.0 % 04/06/2025 5:04 AM [facility] Lymphocyte % 20.5 19.6 - 45.3 % 04/06/2025 5:04 AM [facility] Monocyte % 11.8 5.0 - 12.0 % 04/06/2025 5:04 AM [facility] Eosinophil % 1.8 0.3 - 6.2 % 04/06/2025 5:04 AM [facility] Basophil % 0.3 0.0 - 1.5 % 04/06/2025 5:04 AM [facility] Immature Grans % 0.3 0.0 - 0.5 % 04/06/2025 5:04 AM [facility] Neutrophils, Absolute 7.09(H) 1.70 - 7.00 10*3/mm3 04/06/2025 5:04 AM [facility] Lymphocytes, Absolute 2.23 0.70 - 3.10 10*3/mm3 04/06/2025 5:04 AM [facility] Monocytes, Absolute 1.28(H) 0.10 - 0.90 10*3/mm3 04/06/2025 5:04 AM [facility] Eosinophils, Absolute 0.20 0.00 - 0.40 10*3/mm3 04/06/2025 5:04 AM [facility] Basophils, Absolute 0.03 0.00 - 0.20 10*3/mm3 04/06/2025 5:04 AM [facility] Immature Grans, Absolute 0.03 0.00 - 0.05 10*3/mm3 04/06/2025 5:04 AM [facility] nRBC 0.0 0.0 - 0.2 /100 WBC 04/06/2025 5:04 AM EDT [facility] Blood Venipuncture / Unknown 04/06/2025 3:41 AM EDT 04/06/2025 4:58 AM EDT Jason Álvarez DO LAB BLOOD ORDERABLES Final Resul t Performing Organization Address City/[facility]/ZIP Co de Phone Number [facility]
[address] [place] [address], * Heparin Anti-Xa (04/05/2025 8:43 PM EDT) Heparin Anti-Xa (UFH) 0.38 0.30 - 0.70 IU/ml 04/05/2025 9:09 PM EDT [facility] Blood Venipuncture / Unknown 04/05/2025 8:43 PM EDT 04/05/2025 8:55 PM EDT Cherri Beatty [facility] LAB BLOOD ORDERABLES Final Res ult Performing Organization Address [facility] Co de Phone Number [facility]
[address] [place] [address], * CK (04/05/2025 12:15 PM EDT) Creatine Kinase 140 20 - 200 U/L 04/05/2025 1:31 PM EDT [facility] Blood Venipuncture / Unknown 04/05/2025 12:15 PM EDT 04/05/2025 1:03 PM EDT Carlton Mead MD LAB BLOOD ORDERABLES Final R esult Performing Organization Address City/[facility]/ZIP Co de Phone Number [facility]
[address] [place] [address], * (ABNORMAL) Heparin Anti-Xa (04/05/2025 12:15 PM EDT) [facility] Heparin Anti-Xa (UFH) 0.17(L) 0.30 - 0.70 IU/ml 04/05/2025 1:21 PM EDT [facility] Blood Venipuncture / Unknown 04/05/2025 12:15 PM EDT 04/05/2025 1:04 PM EDT [employer] LAB BLOOD ORDERABLES Final R esult Performing Organization Address City/[facility]/ZIP Co de Phone Number [facility]
[address] [place] [address], * (ABNORMAL) aPTT (04/05/2025 3:54 AM EDT) [facility] PTT 35.3(L) 60.0 - 90.0 seconds 04/05/2025 4:31 AM EDT [facility] Blood Venipuncture / Unknown 04/05/2025 3:54 AM EDT 04/05/2025 4:15 AM EDT [facility] - 04/05/2025 4:31 AM EDT PTT = The equivalent PTT values for the therapeutic range of heparin levels at 0.3 to 0.5 U/ml are 60 to 70 seconds. [employer] [place] PharmD LAB BLOOD ORDERABLES Final R esult [facility]
[address] [place] [address], * Heparin Anti-Xa (04/05/2025 3:54 AM EDT) [facility] Heparin Anti-Xa (UFH) 0.30 0.30 - 0.70 IU/ml 04/05/2025 4:32 AM EDT [facility] Blood Venipuncture / Unknown 04/05/2025 3:54 AM EDT 04/05/2025 4:15 AM EDT Una Perla PharmD LAB BLOOD ORDERABLES Final R esult [facility]
[address] [place] [address], * (ABNORMAL) CBC Auto Differential (04/05/2025 3:54 [...] pg 04/05/2025 4:20 AM EDT [facility] MCHC 32.8 31.5 - 35.7 g/dL 04/05/2025 4:20 AM EDT [facility] RDW 12.9 12.3 - 15.4 % 04/05/2025 4:20 AM EDT [facility] RDW-SD 39.7 37.0 - 54.0 fl 04/05/2025 4:20 AM EDT [facility] MPV 10.2 6.0 - 12.0 fL 04/05/2025 4:20 AM EDT [facility] Platelets 160 140 - 450 10*3/mm3 04/05/2025 4:20 AM EDT [facility] Neutrophil % 73.5 42.7 - 76.0 % 04/05/2025 4:20 AM EDT [facility] Lymphocyte % 14.0(L) 19.6 - 45.3 % 04/05/2025 4:20 AM EDT [facility] Monocyte % 11.0 5.0 - 12.0 % 04/05/2025 4:20 AM EDT [facility] Eosinophil % 0.8 0.3 - 6.2 % 04/05/2025 4:20 AM T [facility] Basophil % 0.3 0.0 - 1.5 % 04/05/2025 4:20 AM [facility] Immature Grans % 0.4 0.0 - 0.5 % 04/05/2025 4:20 AM [facility] Neutrophils, Absolute 8.23(H) 1.70 - 7.00 10*3/mm3 04/05/2025 4:20 AM [facility] Lymphocytes, Absolute 1.56 0.70 - 3.10 10*3/mm3 04/05/2025 4:20 AM [facility] Monocytes, Absolute 1.23(H) 0.10 - 0.90 10*3/mm3 04/05/2025 4:20 AM [facility] Eosinophils, Absolute 0.09 0.00 - 0.40 10*3/mm3 04/05/2025 4:20 AM [facility] Basophils, Absolute 0.03 0.00 - 0.20 10*3/mm3 04/05/2025 4:20 AM [facility] Immature Grans, Absolute 0.04 0.00 - 0.05 10*3/mm3 04/05/2025 4:20 AM T [facility] nRBC 0.0 0.0 - 0.2 /100 WBC 04/05/2025 4:20 AM [facility] Blood Venipuncture / Unknown 04/05/2025 3:54 AM EDT 04/05/2025 4:16 AM EDT Una Perla PharmD LAB BLOOD ORDERABLES Final R esult [facility]
[address] [id number], * (ABNORMAL) Basic Metabolic Panel (04/05/2025 3:54 AM EDT) Glucose 152(H) 65 - 99 mg/dL 04/05/2025 4:40 AM EDT [facility] BUN 17.3 6.0 - 20.0 mg/dL 04/05/2025 4:40 AM EDT [facility] Creatinine 0.92 0.76 [...] 4:40 AM EDT [facility] Calcium 7.8(L) 8.6 - 10.5 mg/dL 04/05/2025 4:40 AM EDT [facility] BUN/Creatinine Ratio 18.8 7.0 - 25.0 04/05/2025 4:40 AM EDT [facility] Anion Gap 9.0 5.0 - 15.0 mmol/L 04/05/2025 4:40 AM EDT [facility] eGFR 105.2 >60.0 mL/min/1.7 3 04/05/2025 4:40 AM T [facility] Blood Venipuncture / Unknown 04/05/2025 3:54 AM EDT 04/05/2025 4:15 AM EDT Narrative [facility] - 04/05/2025 4:40 AM EDT GFR [...] ORDERABLES Final Re sult Performing Organization Address City/[facility]/ZIP Co de Phone Number [facility]
[address] [place] [address], * (ABNORMAL) aPTT (04/05/2025 12:18 AM EDT) [...] ORDERABLES Final R esult Performing Organization Address City/[facility]/ZIP Co de Phone Number [facility]
[address] [place] [address], * (ABNORMAL) Protime-INR (04/05/2025 12:18 AM EDT) Protime 15.9(H) 12.2 - 15.3 Seconds 04/05/2025 12:53 AM EDT [facility] INR 1.19(H) 0.89 - 1.12 04/05/2025 12:53 AM EDT [facility] Blood Venipuncture / Unknown 04/05/2025 12:18 AM EDT 04/05/2025 12:37 AM EDT Una Perla [employer] LAB BLOOD ORDERABLES Final R esult Performing Organization Address City/[facility]/ZIP Co de Phone Number [facility]
[address] [place] [address], * Heparin Anti-Xa (04/05/2025 12:18 AM EDT) Heparin Anti-Xa (UFH) 0.39 0.30 - 0.70 IU/ml 04/05/2025 12:54 AM EDT [facility] Blood Venipuncture / Unknown 04/05/2025 12:18 AM EDT 04/05/2025 12:37 AM EDT [employer] LAB BLOOD ORDERABLES Final R esult Performing Organization Address City/[facility]/ZIP Co de Phone Number [facility]
[address] [place] [address], * MRI Tibia Fibula Right With & [...] MD 04/04/2025 11:00 PM EDT Workstation ID: [id number] Narrative 04/04/2025 11:00 PM EDT MRI TIBIA [...] MD 04/04/2025 11:00 PM EDT Workstation ID: [id number] Leonora Shepherd MD IMG MRI ORDERABLES Final Resu lt * POC Creatinine (04/04/2025 2:49 PM EDT) Pathologist [facility] Creatinine 1.10 0.60 - 1.30 mg/dL 04/07/2025 7:14 PM EDT [facility] Comment:Serial Number: [id number]: [id number] Venous Blood 04/04/2025 2:49 PM EDT 04/07/2025 7:14 PM EDT Jason Álvarez DO POINT OF CARE TEST ORDERABLES Fi nal Result [facility]
[address] [place] [address], * (ABNORMAL) CBC Auto Differential (04/04/2025 2:47 PM EDT) Pathologist [facility] WBC 12.72(H) 3.40 - 10.80 10*3/mm3 04/04/2025 [...] 2:56 PM EDT [facility] RDW-SD 40.3 37.0 - 54.0 fl [...] 2:56 PM EDT [facility] Monocyte % 11.2 5.0 - 12.0 % 04/04/2025 2:56 PM EDT [facility] Eosinophil % 0.4 0.3 - 6.2 % 04/04/2025 2:56 PM EDT [facility] Basophil % 0.2 0.0 - 1.5 % 04/04/2025 2:56 PM EDT [facility] Immature Grans % 0.2 0.0 - 0.5 % 04/04/2025 2:56 PM EDT [facility] Neutrophils, Absolute 9.52(H) 1.70 - 7.00 10*3/mm3 04/04/2025 2:56 PM EDT [facility] Lymphocytes, Absolute 1.66 0.70 - 3.10 10*3/mm3 04/04/2025 2:56 PM EDT [facility] Monocytes, Absolute 1.43(H) 0.10 - 0.90 10*3/mm3 04/04/2025 2:56 PM EDT [facility] Eosinophils, Absolute 0.05 0.00 - 0.40 10*3/mm3 04/04/2025 2:56 PM EDT [facility] Basophils, Absolute [...] Crowley LAB BLOOD ORDERABLES Fin al Result [facility]
[address] [place] [address], [place] [phone] * (ABNORMAL) C-reactive Protein (04/04/2025 2:47 PM EDT) [facility] C-Reactive Protein 8.57(H) 0.00 - 0.50 mg/dL 04/04/2025 3:26 PM EDT [facility] Blood Venipuncture / Unknown 04/04/2025 2:47 PM EDT 04/04/2025 2:52 PM EDT Mario Crowley LAB BLOOD ORDERABLES Fin al Result [facility]
[address] [place] [address], [place] [phone] * (ABNORMAL) Sedimentation Rate (04/04/2025 2:47 PM EDT) Sed Rate 51(H) 0 - 15 mm/hr 04/04/2025 3:06 PM EDT [facility] Blood Venipuncture / Unknown 04/04/2025 2:47 PM EDT 04/04/2025 2:52 PM EDT Mario Crowley DO LAB BLOOD ORDERABLES Fin al Result [facility]
[address] [place] [address], * Comprehensive Metabolic Panel (04/04/2025 2:47 PM EDT) Pathologist [facility] Glucose 90 65 - 99 mg/dL [...] Ratio 1.3 g/dL 04/04/2025 3:26 PM T [facility] BUN/Creatinine Ratio 19.5 7.0 - 25.0 04/04/2025 3:26 PM EDT [facility] Anion Gap 10.7 5.0 - 15.0 mmol/L 04/04/2025 3:26 PM T [facility] eGFR 102.5 >60.0 mL/min/1.7 3 04/04/2025 3:26 PM T [facility] Blood Venipuncture / Unknown 04/04/2025 2:47 PM EDT 04/04/2025 2:52 PM EDT [facility] - 04/04/2025 3:26 PM [...] a factor Mario Crowley LAB BLOOD ORDERABLES [facility] al Result [facility]
[address] [place] [address], documented in this encounter Visit Diagnoses Diagnosis [...] BPA Driven Protocol [facility] Electrolyte Replacement Protocol Algorithm to [...] 5 Minutes PRN, Respiratory Depression, Starting on Tu04/08/25 at 1708, If respiratory rate is less [...] BPA Driven Protocol [facility] Electrolyte Replacement Protocol Algorithm to [...] BPA Driven Protocol [facility] Electrolyte Replacement Protocol Algorithm to [...] disposal. 0831 (Given - Provider: Amber Salazar, TENANT COORDINATOR)1943 (Given - Provider: Anahy Marcelino, TENANT COORDINATOR)2129 (Canceled Entry - Provider: Anahy Marcelino RRT - Comment: previously given) 0837 (Given - Provider: Amber Salazar, TENANT COORDINATOR)2006 (Given - Provider: Loree Reese, TENANT COORDINATOR)2129 (Canceled Entry - Provider: Loree Reese, KELL) 1037 (Given - Provider: Leonora Chen, KELL) [...] 0907 (Given - Provider: Shirley Hart RN) 0906 (Given - Provider: Shirley Hart RN) 1001 (Given - Provider: Marguerite Wakefield, RN) hydroCHLOROthiazide tablet 12.5 mg 12.5 mg, Oral, Daily, First dose on 04/05/25 at 0900, Caution: Look alike/sound alike drug alert 09 (Given - Provider: Shirley Hart RN) 0906 (Given - Provider: Shirley Hart RN) 1001 [...] RN) 0907 (Given - Provider: Shirley Hart RN)2099 (Canceled Entry - Provider: Alberto Dillon RN) [...] for alternative. 2026 (Given - Provider: Alberto Dillon, LU) [...] Continuous Medication Order 04/09/2025 04/10/2025 04/11/2025 heparin 42800 units/250 mL (100 units/mL) in 0.45 % NaCl infusion (CANCELED) 18 Units/kg/hr 134 kg (24.12 mL/hr, rounded to 24.1 mL/hr), Intravenous, Titrated, Starting on 04/05/25 at 0045, Pharmacy dosing - VTE (PE/DVT) - Boluses (No initial bolus), Indications: DVT/PE (active thrombosis) 0614 (New Bag - Provider: Bob Rosenberg RN)0712 (Handoff - Provider: Bob Rosenberg RN)1633 (New Bag - Provider: Shirley Hart, RN) 0313 (New Bag - Provider: Alberto [...] BPA Driven Protocol [facility] Electrolyte Replacement Protocol Algorithm to [...] Bob Rosenberg, LU)0614 (Given - Provider: Bob Rosenberg RN)1006 (Given - Provider: Shirley Hart RN)1220 (Given - Provider: Shirley Hart RN)1438 (Given - Provider: Shirley Hart, RN)1628 (Given - Provider: Shirley Hart RN)1815 (Given - Provider: Shirley Hart, RN)2033 (Given - Provider: Alberto Dillon, RN)2245 (Given - Provider: Alberto Dillon, RN) 0109 (Given - Provider: Alberto Dillon RN)0655 (Given - Provider: Alberto Dillon RN)1414 (Given - Provider: Shirley Hart RN)2124 (Given - Provider: Alberto Dillon, RN) 1003 (Given - Provider: Marguerite Wakefiled RN) Magnesium Standard Dose Replacement - Follow [...] BPA Driven Protocol [facility] Electrolyte Replacement Protocol Algorithm to [...] documented as of this encounter Care Teams Filler In Relationship Specialty Start Date End Date Provider, [place] [address] PCP - General 05/09/23 documented as of this encounter
--- OUTSIDE RECORDS SUMMARY | 2025-04-08 14:34 | XMS_ITS | Encounter Summary ---
Author Organization [facility] Address [address] [place] [address] Care Team Providers Care Retail Product Advisor Name Role Phone Provider, No Known Primary Care Provider Unavail able Reason for Visit * Auth/Cert Specialty Diagnoses / Procedures Referred By Bulmaro muniz Referred To Contact Diagnoses Right BKA infection Referral ID Status Reason Start Date Expiration Date Visits Re quested Visits Authorized [id number] 1 1 Encounter Details Date Type Department Care Team (Late st Contact Info) Description 04/08/2025 3:34 PM EDT Anesthesia Event [facility] OR [address] [place] [address] Ulises Hoffman MD [address] [place] [address] Jairo Brooks MD [address] [place] [address] Anesthesia Record Procedure Summary Procedure Name Responsible [...] by Karol Albert, KAREN 04/08/25 1632 by aKrol Albert SRNA documented in this encounter Social History Tobacco Use Types Packs/Day Years Used Date Smoking Tobacco: Never Smokeless Tobacco: Never Alcohol Use Standard Drinks/Week Comments Not Currently 0 (1 standard drink = 0.6 oz pur e alcohol) [facility] Utilities Answer Date Recorded In the past 12 months has [employer]), oil, or water [employer] threatened to shut off services in your [...] or training? 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
[2025-05-29 18:06] LABS: Iron 84 ug/dL (49-181)
[2025-05-29 18:07] LABS: Cholesterol 122 mg/dl (140-200); HDL Cholesterol 46 mg/dl (40-60); Triglycerides 80 mg/dl (30-150)
[2025-05-29 18:25] LABS: Total Iron Binding Capacity 277 ug/dL (261-462)
[2025-05-29 18:45] LABS: Ferritin 59.0 ng/ml (17.9-464)
--- OUTSIDE RECORDS SUMMARY | 2025-05-30 13:35 | XMS_ITS | Clinical Summary ---
Author Organization [facility] Address [address] [facility] [address] [place] [address] Phone Care Team Providers Care Stick Feeder Name Role Phone Unavailable Unavailable Conditions or Problems No information available. Medications No information available. Medications Administered No information available. Allergies, Adverse Reactions, Alerts No information available. Results No information available. Plan of Care No information available. Procedures No information available. Vital Signs No information available. Immunizations No information available. Advance Directives No information available.
--- OUTSIDE RECORDS SUMMARY | 2025-05-30 13:36 | XMS_ITS | Encounter Summary ---
Author Organization Healthcare Address [address] [place] [address] Care Team Providers Care Scan Coordinator Name Role Phone Unavailable Primary Care Provider Unavailabl e Encounter Details Date Type Department Care Team (Late st Contact Info) Description 07/20/2022 Lab Requisition [facility] [address] [place] [address] Sushil Dean MD [address] [place] [address] Encounter for general adult medical examination without [...] at day 4 07/27/2022 11:32 AM EST [facility] Bone Specimen from bone / Unknown 07/20/2022 1:36 PM EST 07/20/2022 5:52 PM EST us Sushil Dean MD LAB MICROBIOLOGY - GENERAL O RDERABLES Final Result Performing Organization Address City/[facility] Co de Phone Number [facility] [address] [place] [address] * Bone Culture and Gram Stain (07/20/2022 1:36 PM EST) Culture No growth at day 4 2022 9:16 AM EST [facility] Gram Stain Result Rare Polymorphonuclear leukocytes 07/24/2022 9:16 AM EST [facility] Gram Stain Result No organisms seen 07/24/2022 9:16 AM EST [facility] Bone Specimen from bone / Unknown 07/20/2022 1:36 PM EST 07/20/2022 5:52 PM EST us Sushil Dean MD LAB MICROBIOLOGY - GENERAL O RDERABLES Final Result Performing Organization Address City/[facility] Co de Phone Number [facility] [address] [place] [address] documented in this encounter Visit Diagnoses Diagnosis Encounter for general adult medical examination without abnormal findings documented in this encounter
--- OUTSIDE RECORDS SUMMARY | 2025-05-30 13:36 | XMS_ITS | Encounter Summary ---
Author Organization Healthcare Address [address] [place] [address] Care Team Providers Care Family Consumer Science Teacher Name Role Phone Unavailable Primary Care Provider Unavailabl e Encounter Details Date Type Department Care Team (Late st Contact Info) Description 08/12/2022 Lab Requisition [facility] [address] [place] [address] Sushil Dean MD [address] [place] [address] Encounter for general adult medical examination without [...] has been identified using the FDA Approved [employer] [place] System The organism value for this [...] O ERIC Final Result Performing Organization Address City/[facility] de Phone Number [facility] [address] [place] [address] * Bone Culture and Gram Stain (08/12/2022 [...] O RDERABLES Final Result Performing Organization Address City[facility] de Phone Number [facility] [address] [place] [address] documented in this encounter Visit Diagnoses Diagnosis Encounter for general adult medical examination without abnormal findings documented in this encounter
--- OUTSIDE RECORDS SUMMARY | 2025-05-30 13:36 | XMS_ITS | Encounter Summary ---
Author Organization Healthcare Address [address] [place] [address] Care Team Providers Care Donation Specialist Name Role Phone Unavailable Primary Care Provider Unavailabl e Encounter Details Date Type Department Care Team (Late st Contact Info) Description 05/13/2023 Lab Requisition [facility] [address] [place] [address] Sushil Dean MD [address] [facility] [place] [address] Encounter for general adult medical examination without [...] Result Performing Organization Address [facility] Co de Phone Number [facility] [address] [place] [address] * Anaerobic Culture (05/13/2023 9:17 AM EDT) Culture No growth at day 4 05/20/2023 10:35 AM EST [facility] Bone 05/13/2023 9:17 AM EDT 05/13/2023 1:25 PM EDT us Sushil Dean MD LAB MICROBIOLOGY - GENERAL O RDERABLES Final Result Performing Organization Address [facility] de Phone Number [facility] [address] [place] [address] * Bone Culture and Gram Stain (05/13/2023 [...] Result Performing Organization Address [facility] de Phone Number [facility] [address] [place] [address] documented in this encounter Visit Diagnoses Diagnosis Encounter for general adult medical examination without abnormal findings documented in this encounter
--- OUTSIDE RECORDS SUMMARY | 2025-05-30 13:36 | XMS_ITS | Encounter Summary ---
Author Organization [facility] Address [address] [place] [address] Care Team Providers Care Energy Efficiency Finance Manager Name Role Phone Provider, No Known [...] 2:25 PM EDT Cherri Grimm RN * [place] Suicide Severity Rating Scale (Screener/Recent Self-Report) Question [...] documented as of this encounter Care Teams Energy Efficiency Finance Manager Relationship Specialty Start Date End Date Provider, No Known [facility] [place] [address] PCP - General 05/09/23 documented as of this encounter
--- OUTSIDE RECORDS SUMMARY | 2025-05-30 13:36 | XMS_ITS | Encounter Summary ---
Author Organization Healthcare Address [address] [place] [address] Care Team Providers Care Dehydrogenation Converter Helper Name Role Phone Unavailable Primary Care Provider Unavailabl e Encounter Details Date Type Department Care Team (Late st Contact Info) Description 07/20/2022 Lab Requisition [facility] [address] [place] [address] Sushil Dean MD [address] [place] [address] Encounter for general adult medical examination without [...]
--- OUTSIDE RECORDS SUMMARY | 2025-05-30 13:36 | XMS_ITS | Encounter Summary ---
Author Organization Healthcare Address [address] [place] [address] Care Team Providers Care Contract Designer Name Role Phone Unavailable Primary Care Provider Unavailabl e Encounter Details Date Type Department Care Team (Late st Contact Info) Description 10/01/2022 Lab Requisition [facility] [address] [place] [address] Sushil Dean MD [address] [facility]. [address] [place] [address] Encounter for general adult medical examination without [...] has been identified using the FDA Approved [employer] [place] System The organism value for this [...] 10/04/2022 2:17 PM EDT Refer to culture [id number] FOR SUSCEPTIBILITIES ON NEELIMA ALBICANS us Sushil Dean MD LAB MICROBIOLOGY - GENERAL O RDERABLES Final Result [facility] [address] [place] [address] documented in this encounter Visit Diagnoses Diagnosis Encounter for general adult medical examination without abnormal findings documented in this encounter
--- OUTSIDE RECORDS SUMMARY | 2025-05-30 13:36 | XMS_ITS | Clinical Summary ---
Author Organization Healthcare Address [address] [place] [address] Care Team Providers Care Surveyor Mine Name Role Phone Unavailable Primary Care Provider [...]
--- OUTSIDE RECORDS SUMMARY | 2025-05-30 13:36 | XMS_ITS | Encounter Summary ---
Author Organization [facility] Address [address] [place] [address] Care Team Providers Care Spray Operator Name Role Phone Unavailable Primary Care Provider Unavailabl e Encounter Details Date Type Department Care Team (Late st Contact Info) Description 10/03/2022 Lab Requisition [facility] [address] [place] [address] Dalila Cox MD [address] [place], [place] [id number] Encounter for general adult medical examination without [...] Culture Neelima albicans(A) 10/05/2022 11:58 AM EDT [facility] Comment: This result was determined by MALDI tof Mass spectrometry. This assay was developed and its performance characteristics determined by [facility] as appropriate for clinical purposes. [...] Edited Result - Final [facility] [address] [place] [address] documented in this encounter Visit Diagnoses Diagnosis Encounter for general adult medical examination without abnormal findings documented in this encounter
--- OUTSIDE RECORDS SUMMARY | 2025-05-30 13:36 | XMS_ITS | Encounter Summary ---
Author Organization Healthcare Address [address] [place] [address] Care Team Providers Care Data Recovery Planner Name Role Phone Unavailable Primary Care Provider Unavailabl e Encounter Details Date Type Department Care Team (Late st Contact Info) Description 10/19/2022 Lab Requisition [facility] [address] [place] [address] Sushil Dean MD [address] [place] [address] Encounter for general adult medical examination without [...] by MALDI tof mass spectrometry using the [employer] database and is for research use only. The organism value for this result has been updated. These results have been appended to the previously preliminary verified report. Bone Specimen from bone / Unknown 10/19/2022 5:17 PM EDT 10/19/2022 9:49 PM EDT Sushil Dean MD LAB MICROBIOLOGY - GENERAL O RDERABLES Final Result Performing Organization Address [facility] de Phone Number [facility] [address] [place] [address] * Bone Culture and Gram Stain (10/19/2022 5:17 PM EDT) Culture No growth at day 4 2022 8:14 AM EDT [facility] Gram Stain Result Few Polymorphonuclear leukocytes 10/23/2022 8:14 AM EDT [facility] Gram Stain Result No organisms seen 10/23/2022 8:14 AM EDT [facility] Bone Specimen from bone / Unknown 10/19/2022 5:17 PM EDT 10/19/2022 9:49 PM EDT Sushil Dean MD LAB MICROBIOLOGY - GENERAL O RDERAADDI Final Result Performing Organization Address [facility] Phone Number [facility] [address] [place] [address] documented in this encounter Visit Diagnoses Diagnosis Encounter for general adult medical examination without abnormal findings documented in this encounter
--- OUTSIDE RECORDS SUMMARY | 2025-05-30 13:36 | XMS_ITS | Patient Health Record ---
[facility] [address] [facility] [address] [facility] [address] [place] [id number] Care Team Providers Care Dinkey Operator Slate Name Role Phone Zeeshan Salazar Primary Care Provider [phone] Allergies No Known Allergies Medications Medication SIG [...] W/U Status Risk Notes Problem Essential hypertension (62785420) HTN [Hypertension] (401.9) Active confirmed appears resolved Problem Hypothyroidism (00123801) Hypothyroidism NOS (244.9) Active confirmed Problem Hyperlipidemia (82035880) Hyperlipidemia (272.4) Active confirmed Problem Constipation (26026025) Constipation, unspecified constipation type (K59.00) Active confirmed Problem History of pulmonary embolism on long-term anticoagulation therapy (95978855533399373 ) Hx pulmonary embolism (Z86.711) Active confirmed Problem Long-term current use of anticoagulant (571169297) Current use of senior living anticoagulation (Z79.01) Active confirmed Problem Adjustment disorder with anxious mood (25353761) Adjustment disorder with anxious mood (F43.22) Active confirmed Problem History of pulmonary embolus (333093560) History of pulmonary embolus (PE) (Z86.711) Active confirmed Problem Methicillin resistant Staphylococcus aureus infection (disorder) (334701382) Infection of wound due to methicillin resistant Staphylococcus aureus (MRSA) (A49.02) Active confirmed Problem Arthritis of knee (298621149) Arthritis of knee (M17.10) Active confirmed Problem Amputated below knee (753803330) 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
--- OUTSIDE RECORDS SUMMARY | 2025-05-30 13:36 | XMS_ITS | Clinical Summary ---
Author Organization [facility] Address [address] [place] [address] Care Team Providers Care Lead Inspector Name Role Phone Provider, No Known Primary Care Provider Unavail able Allergies Active Allergy Reactions Criticality Noted Date Comments Cefuroxime Nausea And Vomiting 04/04/2025 Cephalexin Nausea And Vomiting 04/04/2025 Latex Rash Low 04/04/2025 Medications Eliquis 5 MG tablet tablet Take 1 tablet by mouth Every 12 (Twelve) Hours. 03/26/2025 Active atorvastatin (LIPITOR) 40 MG tablet Take 1 tablet by mouth Every Night. 03/26/2025 Active Symbicort 160-4.5 MCG/ACT inhaler Inhale 2 puffs 2 (Two) Times a Day. 03/26/2025 Active ezetimibe (ZETIA) 10 MG tablet Take 1 tablet by mouth Every Night. 03/26/2025 Active famotidine (PEPCID) 20 MG tablet Take 1 tablet by mouth 2 (Two) Times a Day. 03/28/2025 Active FeroSul 325 (65 Fe) MG tablet Take 1 tablet by mouth 2 (Two) Times a Day With Meals. 03/26/2025 Active furosemide (LASIX) 20 MG tablet Take 1 tablet by mouth Daily. 03/28/2025 Active hydroCHLOROthia zide 12.5 MG tablet Take 1 tablet by mouth Daily. 03/26/2025 Active omega-3 acid ethyl esters (LOVAZA) 1 g capsule Take 1 capsule by mouth Every Night. 03/26/2025 Active oxybutynin XL (DITROPAN-XL) 10 MG 24 hr tablet Take 1 tablet by mouth Every Night. 03/26/2025 Active sertraline (ZOLOFT) 100 MG tablet Take 1 tablet by mouth Every Night. 03/26/2025 Active tamsulosin (FLOMAX) 0.4 MG capsule 24 hr capsule Take 1 capsule by mouth Every Night. 03/26/2025 Active coenzyme Q10 100 MG capsule Take 2 capsules by mouth Daily. Active oxyCODONE (ROXICODONE) 5 MG immediate release tabletIndicatio ns:Right BKA infection Take 1 tablet by mouth Every 4 (Four) Hours As Needed for Moderate Pain. 42 tablet 04/08/2025 Active acetaminophen (TYLENOL) 500 MG tablet Take 1 tablet by mouth Every 6 (Six) Hours As Needed for Mild Pain, Headache or Fever. 04/11/2025 Active saccharomyces boulardii (FLORASTOR) 250 MG capsule Take 1 capsule by mouth 2 (Two) Times a Day. 60 capsule 04/11/2025 Active Active Problems Problem Noted Date Diagnosed Date Right BKA infection 04/04/2025 Encounters Date Type Department Care Team Description 04/08/2025 3:34 PM EDT Anesthesia Event [facility] [address] [place] [phone] Ulises Hoffman MD Wells, Jeremy B., MD 04/08/2025 2:45 PM EDT - 04/08/2025 4:04 PM EDT Surgery [facility] [address] [place] [phone] Sushil Dean Jr., MD LEG DEBRIDEMENT AND IRRIGATION 04/07/2025 8:36 PM EDT Anesthesia Event [facility] [address] [place] [phone] Luci Alonso DO 04/07/2025 6:00 PM EDT - 04/07/2025 6:52 PM EDT Surgery [facility] [address] [place] [phone] Sushil Dean Jr., MD LEG DEBRIDEMENT, IRRIGATION 04/04/2025 4:10 PM EDT - 04/11/2025 1:58 PM EDT Hospital Encounter [facility] [address] [place] [address], [place] [id number] Mario Crowley DO Anderson, Laurie, MD Gay, [...] 0.6 oz pur e alcohol) [facility] HWities Answer Date Recorded In the past 12 months has e [employer], gas, oil, or water company threatened to [...] training? Not on file Preferred Language [place]ese 04/07/2025 Sex and Gender Information Value [...] this topic Medical Devices Implanted Type Area Utility Porter Device Identifier Shelf Expiration Date Model / Serial / Lot Dev Wnd/Cls Contrl Tiss Stratafix Spiral Pls Pds Ct1 0 22cm - [id number] Implanted:Qty: 1 on 04/08/2025 by Sushil Dean Jr., MD at [facility] Implant Right: Leg [employer] 12/07/2025 [id number] / / [id number] Procedures Procedure Name Priority [...] of8 resultswithin the time period is included. [facility] WBC 7.87 3.40 - 10.80 10*3/mm3 04/11/2025 4:02 AM EDT [facility] RBC 4.70 4.14 - 5.80 10*6/mm3 04/11/2025 4:02 AM [facility] Hemoglobin 12.8(L) 13.0 - 17.7 g/dL 04/11/2025 4:02 AM [facility] Hematocrit 40.5 37.5 - 51.0 % 04/11/2025 4:02 AM [facility] MCV 86.2 79.0 - 97.0 fL 04/11/2025 4:02 AM [facility] MCH 27.2 26.6 - 33.0 pg 04/11/2025 4:02 AM [facility] MCHC 31.6 31.5 - 35.7 g/dL 04/11/2025 4:02 AM [facility] RDW 12.9 12.3 - 15.4 % 04/11/2025 4:02 AM [facility] RDW-SD 40.5 37.0 - 54.0 fl 04/11/2025 4:02 AM [facility] MPV 9.2 6.0 - 12.0 fL 04/11/2025 4:02 AM [facility] Platelets 267 140 - 450 10*3/mm3 04/11/2025 4:02 AM [facility] Neutrophil % 59.5 42.7 - 76.0 % 04/11/2025 4:02 AM [facility] Lymphocyte % 26.3 19.6 - 45.3 % 04/11/2025 4:02 AM [facility] Monocyte % 9.3 5.0 - 12.0 % 04/11/2025 4:02 AM [facility] Eosinophil % 4.1 0.3 - 6.2 % 04/11/[facility] Basophil % 0.4 0.0 - 1.5 % 04/11/2025 4[facility] Immature Grans % 0.4 0.0 - 0.5 % 04/11/2025 4:02 AM [facility] Neutrophils, Absolute 4.69 1.70 [...] Result [facility]
[address] [place] [address], * (ABNORMAL) Comprehensive Metabolic Panel (04/11/2025 3:40 AM EDT) Only the most recent of2 resultswithin the time period is included. Glucose 108(H) 65 - 99 mg/dL 04/11/2025 4:19 AM EDT [facility] BUN 12.5 6.0 - 20.0 mg/dL 04/11/2025 4:19 AM EDT [facility] Creatinine 0.68(L) 0.76 - 1.27 mg/dL 04/11/2025 4:19 AM [facility] Sodium 140 136 - 145 mmol/L 04/11/2025 4:19 AM [facility] Potassium 3.8 3.5 - 5.2 mmol/L 04/11/2025 4:19 AM [facility] Chloride 105 98 - 107 mmol/L 04/11/2025 4:19 AM [facility] CO2 28.2 22.0 - 29.0 mmol/L 04/11/2025 4:19 AM [facility] Calcium 8.2(L) 8.6 - 10.5 mg/dL 04/11/2025 4:19 AM [facility] Total Protein 6.1 6.0 - 8.5 g/dL 04/11/2025 4:19 AM [facility] Albumin 3.1(L) 3.5 - 5.2 g/dL 04/11/2025 4:19 AM [facility] ALT (SGPT) 52(H) 1 - 41 U/L 04/11/2025 4:19 AM [facility] AST (SGOT) 40 1 - 40 U/L 04/11/2025 4:19 AM [facility] Alkaline Phosphatase 99 39 - 117 U/L 04/11/2025 4:19 AM [facility] Total Bilirubin 0.2 0.0 - 1.2 mg/dL 04/11/2025 4:19 AM [facility] Globulin 3.0 gm/dL 04/11/2025 4:19 AM [facility] Comment:Calculated Result A/G Ratio 1.0 g/dL 04/11/2025 4:19 AM [facility] BUN/Creatinine Ratio 18.4 7.0 - 25.0 04/11/2025 4:19 AM [facility] Anion Gap 6.8 5.0 - 15.0 mmol/L 04/11/2025 4:19 AM [facility] eGFR 117.5 >60.0 mL/min/1.7 3 04/11/2025 4:19 AM EDT [facility] Blood Venipuncture / Unknown 04/11/2025 3:40 AM EDT 04/11/2025 3:56 AM EDT Narrative [facility] - 04/11/2025 4:19 AM EDT GFR [...] include race as a factor Rosario Hill [facility] LAB BLOOD ORDERABLES Final Result Performing Organization Address City/[facility]/ZIP Co de Phone Number [facility]
[address] [place] [address], * Heparin Anti-Xa (04/10/2025 3:46 AM EDT) Only the most recent of13 resultswithin the time period is included. Heparin Anti-Xa (UFH) 0.35 0.30 - 0.70 IU/ml 04/10/2025 4:23 AM EDT [facility] Blood Venipuncture / Unknown 04/10/2025 3:46 AM EDT 04/10/2025 3:53 AM EDT Larisa Hamilton [facility] LAB BLOOD ORDERABLES Final R esult Performing Organization Address City/[facility]/ZIP Co de Phone Number [facility]
[address] [place] [address], * (ABNORMAL) Basic Metabolic Panel (04/10/2025 3:46 AM EDT) Only the most recent of6 resultswithin the time period is included. Glucose 125(H) 65 - 99 mg/dL 04/10/2025 4:20 AM EDT [facility] BUN 15.9 6.0 - 20.0 mg/dL 04/10/2025 4:20 AM T [facility] Creatinine 0.77 0.76 - 1.27 mg/dL 04/10/2025 4:20 AM EDT [facility] Sodium 137 136 - 145 mmol/L 04/10/2025 4:20 AM T [facility] Potassium 3.9 3.5 - 5.2 mmol/L 04/10/2025 4:20 AM EDT [facility] Chloride 102 98 - 107 mmol/L 04/10/2025 4:20 AM EDT [facility] CO2 26.9 22.0 - 29.0 mmol/L 04/10/2025 4:20 AM EDT [facility] Calcium 7.9(L) 8.6 - 10.5 mg/dL 04/10/2025 4:20 AM T [facility] BUN/Creatinine Ratio 20.6 7.0 - 25.0 04/10/2025 4:20 AM T [facility] Anion Gap 8.1 5.0 - 15.0 mmol/L 04/10/2025 4:20 AM [facility] eGFR 113.2 >60.0 mL/min/1.7 3 04/10/2025 4:20 AM T [facility] Blood Venipuncture [...] ORDERABLES Final Resul t Performing Organization Address City/[facility] de Phone Number [facility]
[address] [place] [address], * Wound Culture - Swab, Leg, Right (04/08/2025 3:40 PM EDT) Only the most recent of3 resultswithin the time period is included. Wound Culture No growth at 3 days ALIZA 04/11/2025 10:40 AM EDT [facility] Gram Stain Few (2+) WBCs seen 04/11/2025 10:40 AM EDT [facility] Gram Stain No organisms seen 04/11/2025 10:40 AM EDT [facility] Swab Structure of right lower limb / Unknown 04/08/2025 3:40 PM EDT 04/08/2025 8:05 PM EDT Sushil Dean Jr., MD MICROBIOLOGY - GENERAL ORDERABLES Final Result Performing Organization Address City/[facility] de Phone Number [facility]
[address] [place] [address], [facility]
[address] [place] [address], * Anaerobic Culture - Swab, Leg, Right (04/08/2025 3:40 PM EDT) Only the most recent of4 resultswithin the time period is included. Anaerobic Culture No anaerobes isolated at 5 days ALIZA 04/13/2025 7:24 AM EDT [facility] Swab Structure of right lower limb / Unknown 04/08/2025 3:40 PM EDT 04/08/2025 8:05 PM EDT Sushil Dean Jr., MD MICROBIOLOGY - GENERAL ORDERABLES Final Result Performing Organization Address City/[facility]/ZIP Co de Phone Number [facility]
[address] [place] [address], [place] [phone] * Scan Slide (04/08/2025 8:41 AM EDT) [...] ORDERABLES Final R esult Performing Organization Address City/[facility] Co de Phone Number [facility]
[address] [place] [address], [place] [phone] * FL C Arm During Surgery (04/07/2025 9:32 PM EDT) Narrative SYSTEMGENERATED, DOCUMENTATION - 04/07/2025 9:38 PM EDT This procedure was auto-finalized with no dictation required. Sushil Dean Jr., MD IMG FLUOROSCOPY ORDERAB LES Final Result * AFB Culture - Tissue, Leg, Right (04/07/2025 9:13 PM EDT) AFB Culture No AFB isolated at 6 weeks 05/20/2025 4:00 AM EST [facility] AFB Stain No acid fast bacilli seen on concentrated smear 05/20/2025 4:00 AM [facility] Tissue Structure of right lower limb / Unknown 04/07/2025 9:13 PM EDT 04/08/2025 4:54 AM EDT Sushil Dean Jr., MD MICROBIOLOGY - GENERAL ORDERABLES Final Result Performing Organization Address [facility] Co de Phone Number [facility]
[address] [place] [address], * Tissue / Bone Culture - Tissue, Leg, Right (04/07/2025 9:13 PM EDT) Tissue Culture No growth at 3 days ALIZA 04/11/2025 10:36 AM EDT [facility] Gram Stain Rare (1+) WBCs seen 04/11/2025 10:36 AM EDT [facility] Gram Stain No organisms seen 04/11/2025 10:36 AM EDT [facility] Tissue Structure of right lower limb / Unknown 04/07/2025 9:13 PM EDT 04/08/2025 4:54 AM EDT Sushil Dean Jr., MD MICROBIOLOGY - GENERAL ORDERABLES Final Result Performing Organization Address City/[facility] Co de Phone Number [facility]
[address] [place] [address], [facility]
[address] [place] [address], * Fungus Culture - Tissue, Leg, Right (04/07/2025 9:13 PM EDT) Fungus Culture No fungus isolated at 6 weeks 05/20/2025 4:00 AM [facility] Tissue Structure of right lower limb / Unknown 04/07/2025 9:13 PM EDT 04/08/2025 4:54 AM EDT us Sushil Dean Jr., MD MICROBIOLOGY - GENERAL ORDERABLES Final Result [facility]
[address] [place] [address], * BH AN ETT AIRWAY (04/07/2025 8:44 [...] [place] 04/07/2025 9:58 AM EDT Workstation ID: [id number] Narrative 04/07/2025 9:58 AM EDT MRI TIBIA [...] [place] 04/07/2025 9:58 AM EDT Workstation ID: [id number] Sushil Dean Jr., MD IM MRI ORDERABLES Mary Beth l Result * Potassium (04/06/2025 7:16 PM EDT) Potassium 4.0 3.5 - 5.2 mmol/L 04/06/2025 7:53 PM EDT [facility] Blood Venipuncture / Unknown 04/06/2025 7:16 PM EDT 04/06/2025 7:35 PM EDT Jason Álvarez DO LAB BLOOD ORDERABLES Final Resul t [facility]
[address] [place] [address], * CK (04/05/2025 12:15 PM EDT) Creatine Kinase 140 20 - 200 U/L 04/05/2025 1:31 PM EDT [facility] Blood Venipuncture / Unknown 04/05/2025 12:15 PM EDT 04/05/2025 1:03 PM EDT Carlton Mead MD LAB BLOOD ORDERABLES Final R esult Performing Organization Address City/[facility] Co de Phone Number [facility]
[address] [place] [address], * (ABNORMAL) aPTT (04/05/2025 3:54 AM EDT) [...] ORDERABLES Final R esult Performing Organization Address City/[facility] Co de Phone Number [facility]
[address] [place] [address], * (ABNORMAL) Protime-INR (04/05/2025 12:18 AM EDT) Protime 15.9(H) 12.2 - 15.3 Seconds 04/05/2025 12:53 AM EDT [facility] INR 1.19(H) 0.89 - 1.12 04/05/2025 12:53 AM EDT [facility] Blood Venipuncture / Unknown 04/05/2025 12:18 AM EDT 04/05/2025 12:37 AM EDT Una LundbergD LAB BLOOD ORDERABLES Final R esult Performing Organization Address [facility]/ZIP Co de Phone Number [facility]
[address] [place] [address], * POC Creatinine (04/04/2025 2:49 PM EDT) Creatinine 1.10 0.60 - 1.30 mg/dL 04/07/2025 7:14 PM EDT [facility] Comment:Serial Number: [id number] Venous Blood 04/04/2025 2:49 PM EDT 04/07/2025 7:14 PM EDT Jason Álvarez DO POINT OF CARE TEST ORDERABLES Fi nal Result Performing Organization Address [facility] Co de Phone Number [facility]
[address] [place] [address], * (ABNORMAL) Sedimentation Rate (04/04/2025 2:47 PM EDT) Sed Rate 51(H) 0 - 15 mm/hr 04/04/2025 3:06 PM EDT [facility] Blood Venipuncture / Unknown 04/04/2025 2:47 PM EDT 04/04/2025 2:52 PM EDT Mario Crowley DO LAB BLOOD ORDERABLES Fin al Result Performing Organization Address City/[facility]/ZIP Co de Phone Number [facility]
[address] [place] [address], * (ABNORMAL) C-reactive Protein (04/04/2025 2:47 PM EDT) C-Reactive Protein 8.57(H) 0.00 - 0.50 mg/dL 04/04/2025 3:26 PM EDT [facility] Blood Venipuncture / Unknown 04/04/2025 2:47 PM EDT 04/04/2025 2:52 PM EDT us Mario Crowley DO LAB BLOOD ORDERABLES Fin al Result [facility]
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
--- OUTSIDE RECORDS SUMMARY | 2025-05-30 13:36 | XMS_ITS | Encounter Summary ---
Author Organization Healthcare Address [address] [place] [address] Care Team Providers Care Construction Framer Name Role Phone Unavailable Primary Care Provider Unavailabl e Encounter Details Date Type Department Care Team (Late st Contact Info) Description 05/17/2023 Lab Requisition [facility] [address] [place] [address] Sushil Dean MD [address] [facility] [address] [place] [address] Encounter for general adult medical examination without [...] O RDERABLES Final Result Performing Organization Address City/[facility] Co de Phone Number [facility] [address] [place] [address] * Bone Culture and Gram Stain (05/17/2023 [...] Final Result Performing Organization Address [facility] Co de Phone Number [facility] [address] [place] [address] documented in this encounter Visit Diagnoses Diagnosis Encounter for general adult medical examination without abnormal findings documented in this encounter
== END 2025-05-29 23:59 ==
LOC: LAB.DROPOF 05-30 13:32
PROVIDERS: PCP Nurse Practitioner Family; Visit Provider Nurse Practitioner Family
DX: E61.1 Iron deficiency (principal); E78.49 Other hyperlipidemia; F41.9 Anxiety disorder, unspecified; F32.A Depression, unspecified; I10 Essential (primary) hypertension
CPT/HCPCS: 80061; 82728; 83540; 83550